=== PATIENT | female | born 1950 | race Caucasian/White ===

== ENCOUNTER 2022-02-22 08:18 | Inpatient (IN) | payer MEDICARE, SELFPAY ==
[2022-02-22] VITALS (31 sets, daily range): BP systolic 111–189; BP diastolic 64–97; PULSE 76–101; RESP 18–34; TEMP 35.7–36.4; O2SAT 87–99; BMI 47.0; BMI 46.5
--- NOTE | 2022-02-22 08:25 | EKG12_ITS ---
Test Reason : SOB Blood Pressure : / mmHG Vent. Rate : 085 BPM Atrial Rate : 085 BPM P-R Int : 144 ms QRS Dur : 162 ms QT Int : 448 ms P-R-T Axes : 013 -27 135 degrees QTc Int : 533 ms Sinus rhythm with frequent Premature ventricular complexes Left bundle branch block Abnormal ECG Confirmed by HILLARY MOLINA, RAJ ([id number]), subeditor NELIDA FOFANA ([id number]) on 02/24/2022 1:20:59 PM Referred By: AUDREY Confirmed By:RAJ THORNTON MD
--- NOTE | 2022-02-22 08:27 | EX.ED.DYSGE1 ---
HPI History of Present Illness Chief Complaint: Shortness of Breath Informant: patient Onset/Context/Timing Onset: Month(s) (1 month) Context: Gradual Onset Current Severity: Moderate Maximum Severity: Moderate Narrative Narrative: Patient presents with 1 month history of shortness of breath. Symptoms seem to worsen this morning so she came in for evaluation. She has not been seen by her primary care physician for this. She complains of intermittent chest pain but denies pain at present time. No known fever or chills. Occasional cough. She does complain of left leg pain and swelling. [facility] Medical History CHF (congestive heart failure) Coronary artery disease Diabetes mellitus type 2 in obese Hyperlipidemia Hypertension Home Medications glimepiride 4 mg PO BID 09/26/13 [History Last Taken 09/25/13 20:00] loratadine [Claritin] 5 mg PO DAILY 09/26/13 [History Last Taken 09/25/13 06:30] metformin [Glucophage] 1,000 mg PO BID 09/26/13 [History Last Taken 09/25/13 20:00] metoprolol tartrate 50 mg PO BID 09/26/13 [History Last Taken 09/25/13 20:00] Allergy/AdvReac Type Severity Reaction Status Date / Time No Known Allergies Allergy Verified 09/26/13 02:33 Social History Smoking Status: Former smoker ROS ROS ED Constitutional Constitutional ED: Denies chills or fever(s) Eyes Eyes: Denies change in vision ENT ENT ED: Denies sore throat Cardiovascular Cardiovascular: Reports chest pain Respiratory/Chest Respiratory/Chest: Reports cough and dyspnea Gastrointestinal Gastrointestinal: Denies abdominal pain, diarrhea, nausea or vomiting Genitourinary Genitourinary ED: Denies dysuria Musculoskeletal Musculoskeletal: Reports arthralgias and myalgias; Denies back pain Integumentary Denies rash Neurologic Neurologic: Denies headache(s) or weakness Allergic/Immunologic Allergic/Immunologic ED: Denies urticaria EXAM Physical Exam Const Vital Signs: 02/22/22 08:18 02/22/22 08:55 02/22/22 09:18 Temperature 97.5 F L Temperature Source Temporal Pulse Rate 93 81 Respiratory Rate 22 H 32 H Respiratory Effort Short of Breath Respiratory Pattern Normal Blood Pressure 162/68 H 151/66 H Blood Pressure Mean 99 94 Pulse Ox 87 99 Oxygen Delivery Method Room Air Nasal Cannula Nasal Cannula Oxygen Flow Rate (L/min) 2 02/22/22 10:30 02/22/22 10:45 02/22/22 10:59 Temperature Temperature Source Pulse Rate 101 H 96 Respiratory Rate 28 H 34 H Respiratory Effort Respiratory Pattern Tachypnea Blood Pressure 178/83 H Blood Pressure Mean 114 Pulse Ox 88 92 Oxygen Delivery Method Nasal Cannula Nasal Cannula Oxygen Flow Rate (L/min) 2 3 02/22/22 11:00 Temperature 97 F L Temperature Source Temporal Pulse Rate 95 Respiratory Rate 34 H Respiratory Effort Respiratory Pattern Blood Pressure 189/88 H Blood Pressure Mean 121 Pulse Ox 93 Oxygen Delivery Method Nasal Cannula Oxygen Flow Rate (L/min) 3 Positive obese Nutritional Appearance: obese HEENT Reports moist mucous membranes Eyes PERRL and EOMs intact bilaterally Neck supple Chest Wall inspection of chest normal and palpation of chest normal Resp normal respiratory effort and clear to auscultation bilaterally Cardio regular rate and regular rhythm GI non-tender Palpation: soft Extremity Extremity Narrative: 3+ edema bilateral lower extremities. Neuro oriented x3 Sensorium / Orientation: alert Psych mental status grossly normal MDM MDM MDM Narrative Medical decision making narrative: EKG, chest x-ray, lab work obtained. Lab Data Attestation: I reviewed the patient's lab results. Labs: Laboratory Results - last 24 hr 02/22/22 02/22/22 02/22/22 08:25 08:25 08:25 WBC 8.5 RBC 3.16 L Hgb 7.7 L Hct 27.0 L MCV 85.4 MCH 24.4 L MCHC 28.5 L RDW Std Deviation 46.9 H RDW Coeff of Bulmaro 15.2 H Plt Count 319 MPV 10.5 Immature Gran % (Auto) 0.800 Neut % (Auto) 75.1 H Lymph % (Auto) 13.2 L [place] % (Auto) 8.6 Eos % (Auto) 1.6 Baso % (Auto) 0.7 Absolute Neuts (auto) 6.4 Absolute Lymphs (auto) 1.12 Nucleated RBC % 0 D-Dimer Quant (PE/DVT) 0.83 H* Sodium 139 Potassium 4.7 Chloride 107 Carbon Dioxide 21.0 Anion Gap 11 BUN 30 H Creatinine 1.94 H Estim Creat Clear Calc 23.24 Est GFR (MDRD) Af Amer 32 L Est GFR (MDRD) Non-Af 27 L BUN/Creatinine Ratio 15.5 Glucose 371 H Calcium 9.0 Troponin I High Sens 14 B-Natriuretic Peptide 02/22/22 08:25 WBC RBC Hgb Hct MCV MCH MCHC RDW Std Deviation RDW Coeff of Bulmaro Plt Count MPV Immature Gran % (Auto) Neut % (Auto) Lymph % (Auto) [place] % (Auto) Eos % (Auto) Baso % (Auto) Absolute Neuts (auto) Absolute Lymphs (auto) Nucleated RBC % D-Dimer Quant (PE/DVT) Sodium Potassium Chloride Carbon Dioxide Anion Gap BUN Creatinine Estim Creat Clear Calc Est GFR (MDRD) Af Amer Est GFR (MDRD) Non-Af BUN/Creatinine Ratio Glucose Calcium Troponin I High Sens B-Natriuretic Peptide 595.4 H Radiography Chest X-Ray - ED: 1 View, Read by ED Physician and Chronic Changes Diagnostic Testing: Clinical Impression(s) from Imaging Studies Chest X-Ray 02/22/22 08:56 IMPRESSION: No active disease. Electronically Signed: Marcell Nixon MD at 9:43 EDT , EKG Initial EKG: Attestation: I personally reviewed and interpreted this EKG as follows: Interpretation: Sinus Rhythm (Sinus at 85 with left bundle branch block. Occasional PVCs noted. No acute ST change.) Treatment and Re-Evaluation Narrative: Patient's blood counts are reviewed and hemoglobin is low at 7.7. Last prior lab available for comparison from 2013. Chemistry studies are remarkable for creatinine of 1.94. Troponin normal at 14. D-dimer slightly elevated at 0.83. BNP is 595. Unfortunately patient's GFR is too low to get a CTA of the chest. Venous ultrasound of the leg is obtained with no evidence of DVT. Stool guaiac does return positive. Patient has been ordered a dose of Lasix and 2 units packed RBCs. I spoke with Dr. Friend as well as hospitalist for admission. Discharge Plan Triage Chief Complaint: Shortness of Breath ED Provider: Cindy Snyder Dx/Rx/DC Orders Clinical Impression: CHF exacerbation, Anemia, GI bleed Prescriptions: No Action metformin [Glucophage] 1,000 MG tablet 1,000 mg PO BID RF: 0 glimepiride 4 MG tablet 4 mg PO BID RF: 0 metoprolol tartrate 50 MG tablet 50 mg PO BID RF: 0 loratadine [Allergy Relief (loratadine)] 10 MG tablet 5 mg PO DAILY RF: 0 Primary Care Provider: Nabor James Referrals: Nabor James MD [Primary Care Provider] - Disposition Disposition: Acute Care Hospital [facility]
[2022-02-22 08:41] LABS: Absolute Lymphocyte Count 1.12 X10^3/uL (0.83-4.51); Absolute Neutrophil Count 6.4 X10^3/uL (2.0-7.7); Basophil# 0.06 X10^3/uL; Basophil% 0.7 % (0-1); Eosinophil# 0.14 X10^3/uL; Eosinophils% 1.6 % (0-5); Hemoglobin 7.7 g/dL (12.0-15.0); Lymphocyte # 1.12 X10^3/ul (0.83-4.51); Lymphocyte % 13.2 % (19-41); Mean Corp Hgb Conc 28.5 g/dL (32-36); Mean Corpuscular Hgb 24.4 pg (27.0-32.0); Mean Corpuscular Volume 85.4 fL (81-99); Mean Platelet Vol. 10.5 fl (6.2-12.0); Monocyte# 0.73 X10^3/uL; Monocyte% 8.6 % (0-10); NRBC Flagged by Analyzer 0 % (0-5); Neutrophil # 6.39 X10^3/uL (2.7-7.7); Neutrophil % 75.1 % (47-70); Platelet Count 319 K/mm3 (150-450); RBC Distribution Width CV 15.2 % (11.6-14.6); RBC Distribution Width SD 46.9 fl (35.1-43.9); Red Blood Count 3.16 M/mm3 (4.2-5.4); White Blood Count 8.5 K/mm3 (4.4-11.0)
--- NOTE | 2022-02-22 08:56 | RAD_ITS ---
STUDY: X-RAY CHEST REASON FOR EXAM: Female, 71 years old. sob TECHNIQUE: Single AP portable view of the chest. COMPARISON: 09/27/2013 FINDINGS: The lungs are clear and expanded. There is no demonstrated pleural abnormality. There is moderate cardiac enlargement. Normal mediastinum and devendra. Normal visualized pulmonary arteries. Normal visualized aortic arch and descending thoracic aorta. Normal visualized thoracic spine. Normal visualized ribs, clavicles, and shoulders. There is no demonstrated abnormality of the visualized soft tissue structures of the upper abdomen. RAD/Chest 1 View (Portable) IMPRESSION: No active disease. Electronically Signed: Marcell Nixon MD at 9:43 EDT ,
[2022-02-22 09:06] LABS: D-Dimer Quantitative (DVT/PE) 0.83 FEU/ug/m (0.27-0.49)
[2022-02-22 09:07] LABS: Anion Gap 11 (5-15); BUN 30 mg/dL (7-18); BUN/Creat Ratio 15.5 RATIO (10-20); Chloride 107 mmol/L (98-107); Creatinine, Serum 1.94 mg/dL (0.55-1.02); EST Glomerular Filtration Rate 27 mL/min (>60); Est Glom Filt Rate - Afr Amer 32 mL/min (>60); Estimated Creatinine Clearance 23.24 ml/min; Glucose 371 mg/dL (74-106); Potassium 4.7 mmol/L (3.5-5.1); Sodium Level 139 mmol/L (136-145); Troponin-I HS 14 pg/mL (3.0-54.0)
[2022-02-22 09:11] LABS: BNP,B-Type NATRIURETIC PEPTIDE 595.4 pg/mL (0-100)
--- NOTE | 2022-02-22 09:52 | VDLE_ITS ---
Reason For Study: Swelling Procedure LEFT This is a venous duplex using B-mode, color GSV is normal. flow and spectral Doppler. CFV is compressible, spontaneous, phasic, Exam performed portable in ED. competent, and demonstrates normal A preliminary report was called and/or faxed augmentation. to [facility]. FV is compressible, spontaneous, phasic, competent and demonstrates normal augmentation. FV distal visualized with color only due to ptbody habitus, appears patent. POP V is compressible, spontaneous, phasic, competent and demonstrates normal augmentation. T/P Trunk is compressible. PTV is compressible. LT PerV is compressible. VL/Venous Duplex US, Unilateral Interpretation Summary There is no evidence of left lower extremity deep vein thrombosis. Left great s aphenous vein appears patent and compressible segmentally. Patient body habitus prehibits compression of distal left femoral vein--viewed with color as noted. Ordering Physician: Cindy Snyder Referring Physician: MD Jacob Nabor Performed By: Melanie Rajput RVGuillermo
[2022-02-22] MEDS: Ipratropium/Albuterol Sulfate 3 ML AMPUL.NEB INHALATION ×3 (10:29→19:25)
[2022-02-22] MEDS: Furosemide 40 MG/4 ML Vial IV ×3 (10:47→22:06)
--- NOTE | 2022-02-22 11:10 | NURSING ---
HOSPITALIST PAGED DR HERNANDEZ PAGED
--- NOTE | 2022-02-22 11:13 | NURSING ---
DR VALLE FOR DR GUALLPA
--- NOTE | 2022-02-22 11:18 | HP.PCM.HOS_ITS ---
[facility] Date of Admission: 02/22/22 Date of Service: 02/22/22 Chief Complaint: SOB - 1 month HPI Narrative PRICILA WALDROP, is a 71 F who presents with above. Patient has past medical history of hypertension, type II DM, CAD status post stents(done in [facility] years ago). She has been progressively short of breath ongoing for 1 month. This is associated with orthopnea and PND and bilateral leg swelling. She has been sleeping in her recliner. She denied any chest pain or dizziness or palpitation. She denied any melena or hematochezia or hematemesis. She denied any NSAID use. Denied abdominal pain or nausea or vomiting. Her vitals in the ED showed blood pressure 162/68, pulse 93, respiratory rate 22, temperature 97.5, oxygen saturation 87% on room air. WBC count is 8.5, hemoglobin 7.7, no recent hemoglobin to compare. Last hemoglobin was 11.8 in 2013. Platelet is 319, elevated D-dimer at 0.83, CMP showed BUN of 30, creatinine 1.94, glucose 371. Previous creatinine was 1.4 in 2013. BNpeptide 595.4. Admitting chest x-ray showed moderate cardiac enlargement, no active disease. 2D echo in 2012 showed an EF of 50%, moderate pulmonary hypertension. [facility] Medical History (Updated 02/22/22 @ 11:[address] Marva Mckeon MD) CHF (congestive heart failure) Coronary artery disease Diabetes mellitus type 2 in obese Hyperlipidemia Hypertension Home Medications atorvastatin 40 mg PO QHS 02/22/22 [History Last Taken Unknown] carvedilol 12.5 mg PO BID 02/22/22 [History Last Taken Unknown] clopidogrel 75 mg PO DAILY 02/22/22 [History Last Taken Unknown] furosemide 40 mg PO DAILY 02/22/22 [History Last Taken Unknown] insulin detemir U-100 [Levemir FlexTouch U-100 Insuln] 80 unit SUBCUT BREAKFAST 02/22/22 [History Last Taken Unknown] insulin lispro 30 unit SUBCUT TIDCM 02/22/22 [History Last Taken Unknown] spironolactone 25 mg PO DAILY 02/22/22 [History Last Taken Unknown] valsartan 160 mg PO DAILY 02/22/22 [History Last Taken Unknown] Allergy/AdvReac Type Severity Reaction Status Date / Time No Known Allergies Allergy Verified 09/26/13 02:33 Family History (Updated 02/22/22 @ 11:[address] Marva Mckeon MD) Father Diabetes Heart disease CAD (coronary artery disease) Mother Heart disease Surgical History H/O vein stripping Status post angioplasty with stent Social History (Updated 02/22/22 @ 11:[address] Marva Mckeon MD) household members: family Smoking Status: Former smoker alcohol intake: never substance use type: does not use ROS ROS Narrative Constitutional: Reports:Denies: Anorexia, Chills, Fever, Night Sweats, Weight Change Eyes: Denies: Blurred vision, Cataracts, Conjunctivae Inflammation, Pain, Redness, Vision Change HEENT: Denies: Difficulty Hearing, Difficulty Swallowing, Head Aches, Hearing Changes, Sinus Congestion, Sinus Drainage Cardiovascular: See HPI Respiratory: Denies: Cough, Shortness of breath at rest, Sputum production Gastrointestinal: Denies: Abdominal Pain, Nausea, Vomiting Genitourinary: Denies: Dysuria Musculoskeletal: Denies: Joint Pain, Joint stiffness, Joint swelling, Joint Tenderness Skin: Denies: Rash, Wounds Neurological: Denies: Numbness, Tingling, Focal weakness Vital Signs Vital Signs Vital Signs: 02/22/22 08:18 02/22/22 08:55 02/22/22 09:18 Temperature 97.5 F L Temperature Source Temporal Pulse Rate 93 81 Respiratory Rate 22 H 32 H Respiratory Effort Short of Breath Respiratory Pattern Normal Blood Pressure 162/68 H 151/66 H Blood Pressure Mean 99 94 Pulse Ox 87 99 Oxygen Delivery Method Room Air Nasal Cannula Nasal Cannula Oxygen Flow Rate (L/min) 2 02/22/22 10:30 02/22/22 10:45 02/22/22 10:59 Temperature Temperature Source Pulse Rate 101 H 96 Respiratory Rate 28 H 34 H Respiratory Effort Respiratory Pattern Tachypnea Blood Pressure 178/83 H Blood Pressure Mean 114 Pulse Ox 88 92 Oxygen Delivery Method Nasal Cannula Nasal Cannula Oxygen Flow Rate (L/min) 2 3 02/22/22 11:00 Temperature 97 F L Temperature Source Temporal Pulse Rate 95 Respiratory Rate 34 H Respiratory Effort Respiratory Pattern Blood Pressure 189/88 H Blood Pressure Mean 121 Pulse Ox 93 Oxygen Delivery Method Nasal Cannula Oxygen Flow Rate (L/min) 3 Weight Weight: 130.1 kg Body Mass Index (BMI) 47.0 Physical Exam Narrative Physical exam: General: Alert, Oriented x3, Cooperative, in mild respiratory distress with tachypnea, conversational dyspnea, on 3 L of oxygen, morbidly obese HEENT: Atraumatic Oral: Moist Mucosa Neck: Supple Lungs: Diminished to auscultation, wheezes++ Cardiovascular: HS I+II, regular, no murmurs Abdomen: Bowel Sounds Present, Soft, Non Tender Extremities: Bilateral leg edema +3 Skin: No rashes, No breakdown Neurological: Grossly intact Psych/Mental Status: Appropriate Results Lab / Micro Data Result Diagrams: 02/22/22 08:25 02/22/22 08:25 Labs: Laboratory Results - last 24 hr 02/22/22 08:25: WBC 8.5, RBC 3.16 L, Hgb 7.7 L, Hct 27.0 L, MCV 85.4, MCH 24.4 L , MCHC 28.5 L, RDW Std Deviation 46.9 H, RDW Coeff of Bulmaro 15.2 H, Plt Count 319, MPV 10.5, Immature Gran % (Auto) 0.800, Neut % (Auto) 75.1 H, Lymph % (Auto) 13.2 L, [place] % (Auto) 8.6, Eos % (Auto) 1.6, Baso % (Auto) 0.7, Absolute Neuts (auto) 6.4, Absolute Lymphs (auto) 1.12, Nucleated RBC % 0 02/22/22 08:25: D-Dimer Quant (PE/DVT) 0.83 H* 02/22/22 08:25: Sodium 139, Potassium 4.7, Chloride 107, Carbon Dioxide 21.0, Anion Gap 11, BUN 30 H, Creatinine 1.94 H, Estim Creat Clear Calc 23.24, Est GFR (MDRD) Af Amer 32 L, Est GFR (MDRD) Non-Af 27 L, BUN/Creatinine Ratio 15.5, Glucose 371 H, Calcium 9.0, Troponin I High Sens 14 02/22/22 08:25: B-Natriuretic Peptide 595.4 H Micro: Microbiology 02/22/22 10:05 Stool Stool Occult Blood (TREVOR) - Final Occult Blood Positive 02/22/22 08:38 Nasal Secretion SARS-CoV-2 & FLU Antigen (Rapid) - Final Radiology Impression Chest X-Ray 02/22/22 08:56 IMPRESSION: No active disease. Electronically Signed: Marcell Nixon MD at 9:43 EDT , Assessment & Plan Assessment/Plan (1) CHF exacerbation: (2) Anemia: (3) GI bleed: (4) ELIDA (acute kidney injury): (5) Elevated d-dimer: PLAN: 1. Acute hypoxia secondary to acute exacerbation of heart failure with reduced EF Patient is currently on 3 L of oxygen and in florid heart failure Will continue on treatment for CHF, wean off oxygen, breathing treatments 2. Acute exacerbation of heart failure with reduced EF, EF 50% Last 2D echo in 2012 showed an EF of 20%, moderate pulm hypertension Lasix IV 40 mg Q8h, CHF protocol, TSH, trend cardiac enzymes Repeat 2D echo 3. Anemia, acute symptomatic, probably secondary to chronic blood loss from acute GI bleed Admitting hemoglobin of 7.7, Patient denied any melena or overt GI bleed. Stool for occult blood is positive We will check iron stores, patient being transfused from the ED Hold Plavix Repeat hemoglobin 4. Acute GI bleed likely secondary to gastritis Patient with severe symptomatic anemia, stool for occult blood positive GI consulted from the ED IV PPI twice daily 5. ELIDA on CKD, unknown previous recent EF, likely secondary to cardiorenal disease Cr on admission was 1.94, last creatinine was 1.4 Will monitor on Lasix therapy 6. Elevated D-dimer, likely an acute phase reactant from CHF versus possible PE Cannot do CTA on account of her renal function Bilateral Doppler ultrasound done in the ED was unremarkable We will hold for now on account of possible GI bleed 7. Type II DM, continue on insulin, check HbA1c, cover with insulin sliding scale blood glucose checks 8. Morbid obesity, BMI 47.0, complicates care and recovery, lifestyle modification recommended 9. DVT prophylaxis?SCDs 10. I discussed and explained in details the various types of CODE STATUS-full code, DNR CCA, DNR CC. Patient chose to be full code. His son Marcell Waldrop is his healthcare POA Time spent discussing CODE STATUS 18 minutes Charges/Coding Visit Charges Inpatient E&M: 06147 Init Hosp L3 Procedures Hospitalists Procedures: 74787 Advncd Care Plan 30 Min
[2022-02-22] MEDS: Albuterol 2.5 MG/3 ML VIAL.NEB. INHALATION ×2 (11:22)
--- NOTE | 2022-02-22 13:02 | ECHOCS_ITS ---
Reason For Study: CHF Procedure This was a 2D Doppler, Color Flow transthoracic echocardiogram. Contrast injection was performed. Exam performed portable in patient room. Left Ventricle Normal LV size. The estimated ejection fraction is 37 %. Moderate segmental systolic dysfunction (see wall motion). Stage 2 diastolic dysfunction. Mid-Inferior: Akinetic. Infero-Basal: Akinetic. Inferior [place] : Hypokinetic. Posterior-Basal: Hypokinetic. Mid-Posterior: Akinetic. Mid- inferoseptal : Hypokinetic. Basal inferoseptal: Hypokinetic. The rest of the wall segments are normal. Right Ventricle Normal RV size. Normal systolic function. Atria The left atrium is mildly enlarged. Normal right atrium. Mitral Valve Mild diffuse mitral valve thickening. Mild (1+) mitral valve insufficiency. Tricuspid Valve Normal tricuspid valve. Mild to moderate (1-2+) tricuspid valve insufficiency. Pulmonary artery systolic pressure is 55 mmHg. Aortic Valve Trisinus/trileaflet aortic valve. Pulmonic Valve The pulmonic valve is not well visualized. Great Vessels Normal aortic root. The pulmonary artery is normal size. and does not collapse. Pericardium/Pleural No pericardial effusion. Medication Diluted definity 2ml given slow IV push to enhance endocardial definition. MMode/2D Measurements & Calculations LVIDd: 5.6 cm IVSd: 1.1 cm Ao root diam: 3.0 cm LVIDs: 4.9 cm LVPWd: 1.0 cm RVDd: 4.0 cm FS: 12.5 % LAV(MOD-bp): 64.6 ml LVAd ap4: 36.9 cm2 SV(MOD-sp4): 51.1 ml LAV(MOD-bp) Indexed: 28.0 ml/m2 LVLd ap4: 8.2 cm LAV(MOD-sp2): 64.5 ml EDV(MOD-sp4): 134.6 ml LAV(MOD-sp4): 61.4 ml EDV(sp4-el): 140.8 ml LVAs ap4: 27.5 cm2 LVLs ap4: 7.5 cm ESV(MOD-sp4): 83.4 ml ESV(sp4-el): 85.9 ml EF(MOD-sp4): 38.0 % EF(sp4-el): 39.0 % SV(sp4-el): 54.8 ml LA A4 area: 20.4 cm2 LA dimension(2D): 4.2 cm RA A4 area: 15.1 cm2 Doppler Measurements & Calculations MV E max remberto: 82.3 cm/sec Lat Peak E' Remberto: 3.4 cm/sec Med Peak E' Remberto: 2.9 cm/sec MV A max remberto: 98.5 cm/sec E/E' lat: 24.1 E/E' med: 28.3 MV E/A: 0.84 Ao V2 max: 160.0 cm/sec LV V1 max: 105.3 cm/sec PA V2 max: 100.4 cm/sec Ao max P.2 mmHg LV V1 max P.4 mmHg Ao V2 mean: 118.0 cm/sec Ao mean P.0 mmHg Ao V2 VTI: 34.8 cm TR max remberto: 348.4 cm/sec TR max P.5 mmHg ECHO/Echo Complete W/ Contrast Interpretation Summary Normal LV size. The estimated ejection fraction is 37 %. Moderate segmental systolic dysfunction (see wall motion). Stage 2 diastolic dysfunction. Pulmonary artery systolic pressure is 55 mmHg. Contrast injection was performed. Compared to previous study, the left ventricu lar systolic function has worsened.. Ordering Physician: Marva Mckeon Referring Physician: Nabor James Performed By: Pushpa Marquis RDCS, RVT
[2022-02-22 13:10] LABS: Thyroid Stim Hormone (TSH) 5.15 uIU/mL (0.358-3.74)
[2022-02-22] MEDS: 0.9% Saline Lock 10 ML Syringe IV ×5 (13:27→22:02)
[2022-02-22] MEDS: Insulin Lispro 100 UNIT/ML INSULN.PEN 30 UNIT SC ×2 (13:57→16:57)
[2022-02-22] MEDS: Insulin Lispro 100 UNIT/ML INSULN.PEN SC ×3 (13:58→22:03)
[2022-02-22 14:00] LABS: Troponin-I HS 46 pg/mL (3.0-54.0)
[2022-02-22] MEDS: Ondansetron 4 MG/2 ML Vial IV (14:09)
[2022-02-22 14:10] LABS: Hemoglobin A1c 8.2 % (3.8-5.6)
[2022-02-22 14:11] LABS: Bedside Glucose 347 mg/dL (74-106)
[2022-02-22] MEDS: hydrALAZINE 20 MG/ML Vial 5 MG IV (14:27)
[2022-02-22 15:07] LABS: Troponin-I HS 64 pg/mL (3.0-54.0)
--- NOTE | 2022-02-22 16:03 | PCM.CONS.GEN ---
Assessment & Plan Assessment/Plan (1) Anemia: PLAN: New onset worsening anemia in the setting of aspirin therapy. Differential diagnosis does include upper GI bleed. She does have increased BUN/creatinine ratio that is possibly secondary to upper GI bleed, acute kidney injury in the setting of chronic kidney disease from dehydration. She also takes Plavix therapy which did increase risk of upper GI bleed. At this time, I recommend Protonix 40 mg IV twice daily. She is getting transfused 1 unit of packed red blood cells. N.p.o. after midnight for an upper endoscopy. She was explained alternatives, risk, benefits including not withstanding bleeding, infection, sepsis, perforation, need for urgent . Should have an ASA of 3. (2) ELIDA (acute kidney injury): PLAN: Likely secondary to dehydration, ATN , upper GI bleed or NSAID usage. HPI Consult Data Date of Consult: 02/22/22 HPI Narrative HPI Narrative: PRICILA WALDROP, is a 71 F who presents to the emergency room with worsening shortness of breath and bilateral leg swelling. She has a past medical history of morbid obesity, hypertension, diabetes, CAD status post PCI with stents. In the ED she was discovered to have a hemoglobin of 7.7, BUN 30, creatinine 1.94. I was called to see her due to new onset anemia. Her last known hemoglobin was 11.9. She denied any NSAID use. Denied abdominal pain or nausea or vomiting. Her vitals in the ED showed blood pressure 162/68, pulse 93, respiratory rate 22, temperature 97.5, oxygen saturation 87% on room air. WBC count is 8.5, hemoglobin 7.7, no recent hemoglobin to compare. Last hemoglobin was 11.8 in 2013. Platelet is 319, elevated D-dimer at 0.83, CMP also displayed a glucose 371. Previous creatinine was 1.4 in 2013. BNpeptide 595.4. Admitting chest x-ray showed moderate cardiac enlargement, no active disease. 2D echo in 2012 showed an EF of 50%, moderate pulmonary hypertension. [facility] Medical History (Updated 02/22/22 @ 11:[address] Marva Mckeon MD) CHF (congestive heart failure) Coronary artery disease Diabetes mellitus type 2 in obese Hyperlipidemia Hypertension Home Medications atorvastatin 40 mg PO QHS 02/22/22 [History Last Taken Unknown] carvedilol 12.5 mg PO BID 02/22/22 [History Last Taken Unknown] clopidogrel 75 mg PO DAILY 02/22/22 [History Last Taken Unknown] furosemide 40 mg PO DAILY 02/22/22 [History Last Taken Unknown] insulin detemir U-100 [Levemir FlexTouch U-100 Insuln] 80 unit SUBCUT BREAKFAST 02/22/22 [History Last Taken Unknown] insulin lispro 30 unit SUBCUT TIDCM 02/22/22 [History Last Taken Unknown] spironolactone 25 mg PO DAILY 02/22/22 [History Last Taken Unknown] valsartan 160 mg PO DAILY 02/22/22 [History Last Taken Unknown] Allergy/AdvReac Type Severity Reaction Status Date / Time No Known Allergies Allergy Verified 09/26/13 02:33 Family History (Updated 02/22/22 @ 11:[address] Marva Mckeon MD) Father Diabetes Heart disease CAD (coronary artery disease) Mother Heart disease Surgical History H/O vein stripping Status post angioplasty with stent Social History (Updated 02/22/22 @ 11:[address] Marva Mckeon MD) household members: family Smoking Status: Former smoker alcohol intake: never substance use type: does not use ROS Review of Systems ROS Unobtainable: other Constitutional Constitutional: Denies fatigue, fever(s), poor appetite, weight gain or weight loss ENT HEENT: Denies mouth lesions Cardiovascular Cardiovascular: Denies abdominal bloating, abdominal edema or abdominal pain Respiratory/Chest Respiratory/Chest: Reports dyspnea Gastrointestinal Gastrointestinal: Denies belching, bloating, change in bowel habits, change in stool character, chewing difficulty, coffee ground emesis, constipation, cramping, diarrhea, dyspepsia, dysphagia, early satiety, excessive flatus, fecal incontinence, heartburn, hematemesis, hematochezia, hemorrhoids, loose stools, melena, nausea, odynophagia, rectal bleeding, tenesmus, vomiting or weight changes Genitourinary Genitourinary: Denies abdominal discomfort, burning urination or itching Musculoskeletal Musculoskeletal: Reports as per HPI; Denies muscle weakness or myalgias Integumentary Integumentary: Denies jaundice Neurologic Neurologic: Denies lack of coordination or weakness Psychiatric Psychiatric: Denies confusion, depression, memory loss, mood swings, paranoia or suicidal ideation Endocrine Endocrinology: Denies systems reviewed and no addt'l complaints, except as documented Hematologic/Lymphatic Hematologic/Lymphatic: Reports easy bruising Allergic/Immunologic Allergic/Immunologic: Denies systems reviewed and no addt'l complaints, except as documented Physical Exam Const alert General Appearance: cooperative Orientation / Consciousness: oriented to person HEENT hearing grossly normal bilaterally Head and Scalp: normal to inspection Face and Sinus: face symmetric Nose: external nose normal Mouth: oral and palatal mucosa normal Eyes conjunctivae normal General Eye: normal appearance of both eyes Neck full ROM General: normal visual inspection Lymph Lymphatic: no lymphadenopathy noted Chest inspection of chest normal and palpation of chest normal Chest: symmetrical chest wall rise Resp normal respiratory effort Effort and Inspection: able to speak in complete sentences Cardio regular rate GI non-distended Percussion: normal to percussion Rectal Exam: deferred Neuro Speech: speech normal Gait (Neuro): normal gait Lab / Micro Data Result Diagrams: 02/22/22 08:25 02/22/22 08:25 Labs: Laboratory Results - last 24 hr 02/22/22 08:24: TSH 5.15 H 02/22/22 08:25: WBC 8.5, RBC 3.16 L, Hgb 7.7 L, Hct 27.0 L, MCV 85.4, MCH 24.4 L, MCHC 28.5 L, RDW Std Deviation 46.9 H, RDW Coeff of Bulmaro 15.2 H, Plt Count 319, MPV 10.5, Immature Gran % (Auto) 0.800, Neut % (Auto) 75.1 H, Lymph % (Auto) 13.2 L, [place] % (Auto) 8.6, Eos % (Auto) 1.6, Baso % (Auto) 0.7, Absolute Neuts (auto) 6.4, Absolute Lymphs (auto) 1.12, Nucleated RBC % 0 02/22/22 08:25: D-Dimer Quant (PE/DVT) 0.83 H* 02/22/22 08:25: Sodium 139, Potassium 4.7, Chloride 107, Carbon Dioxide 21.0, Anion Gap 11, BUN 30 H, Creatinine 1.94 H, Estim Creat Clear Calc 23.24, Est GFR (MDRD) Af Amer 32 L, Est GFR (MDRD) Non-Af 27 L, BUN/Creatinine Ratio 15.5, Glucose 371 H, Calcium 9.0, Troponin I High Sens 14 02/22/22 08:25: B-Natriuretic Peptide 595.4 H 02/22/22 11:30: Blood Type A POSITIVE, Antibody Screen NEGATIVE, Crossmatch See Detail 02/22/22 13:14: Hemoglobin A1c 8.2 H 02/22/22 13:16: Troponin I High Sens 46 02/22/22 13:54: POC Glucose 347 H 02/22/22 14:30: Troponin I High Sens 64 H Micro: Microbiology 02/22/22 10:05 Stool Stool Occult Blood (TREVOR) - Final Occult Blood Positive 02/22/22 08:38 Nasal Secretion SARS-CoV-2 & FLU Antigen (Rapid) - Final Radiology Impression Chest X-Ray 02/22/22 08:56 IMPRESSION: No active disease. Electronically Signed: Marcell Nixon MD at 9:43 EDT , Charges/Coding Visit Charges Inpatient E&M: 15865 Init Hosp L2
[2022-02-22] MEDS: Spironolactone 25 MG Tablet PO (17:08)
[2022-02-22] MEDS: Losartan Potassium 50 MG Tablet PO (17:08)
[2022-02-22 17:11] LABS: Bedside Glucose 312 mg/dL (74-106)
[2022-02-22] MEDS: Glucerna Shake 120 ML LIQUID PO (22:02)
[2022-02-22] MEDS: Carvedilol 12.5 MG Tablet PO (22:02)
[2022-02-22] MEDS: Atorvastatin Calcium 40 MG Tablet PO (22:10)
[2022-02-23] VITALS (20 sets, daily range): BP systolic 91–162; BP diastolic 47–78; PULSE 60–116; RESP 12–24; TEMP 36.2–36.9; O2SAT 93–100; BMI 46.2
[2022-02-23 01:20] LABS: Bedside Glucose 211 mg/dL (74-106)
[2022-02-23 05:21] LABS: Absolute Lymphocyte Count 0.86 X10^3/uL (0.83-4.51); Basophil# 0.05 X10^3/uL; Basophil% 0.5 % (0-1); Eosinophil# 0.08 X10^3/uL; Eosinophils% 0.7 % (0-5); Hematocrit 30.6 % (37-47); Hemoglobin 9.2 g/dL (12.0-15.0); Lymphocyte # 0.86 X10^3/ul (0.83-4.51); Mean Corp Hgb Conc 30.1 g/dL (32-36); Mean Corpuscular Hgb 25.4 pg (27.0-32.0); Mean Corpuscular Volume 84.5 fL (81-99); Mean Platelet Vol. 10.3 fl (6.2-12.0); Monocyte# 0.73 X10^3/uL; Monocyte% 6.8 % (0-10); NRBC Flagged by Analyzer 0 % (0-5); Neutrophil # 8.95 X10^3/uL (2.7-7.7); Neutrophil % 83.3 % (47-70); Platelet Count 259 K/mm3 (150-450); RBC Distribution Width CV 14.7 % (11.6-14.6); RBC Distribution Width SD 45.7 fl (35.1-43.9); Red Blood Count 3.62 M/mm3 (4.2-5.4); White Blood Count 10.8 K/mm3 (4.4-11.0)
[2022-02-23] MEDS: Furosemide 40 MG/4 ML Vial IV ×2 (05:40→17:31)
[2022-02-23 05:41] LABS: ALB/GLOB Ratio 0.9 RATIO (0.9-2.4); AST(SGOT) 15 U/L (15-37); Alanine Aminotransfer ALT/SGPT 17 U/L (13-56); Albumin, Serum 3.1 g/dL (3.2-5.0); Alkaline Phosphatase 76 U/L (45-117); Anion Gap 8 (5-15); BUN 35 mg/dL (7-18); Calcium,Total 8.6 mg/dL (8.5-10.1); Chloride 106 mmol/L (98-107); Creatinine, Serum 1.84 mg/dL (0.55-1.02); EST Glomerular Filtration Rate 29 mL/min (>60); Est Glom Filt Rate - Afr Amer 35 mL/min (>60); Globulin 3.5 g/dL (2.2-4.2); Glucose 179 mg/dL (74-106); Magnesium 1.8 mg/dL (1.6-2.6); Potassium 4.5 mmol/L (3.5-5.1); Protein, Total 6.6 g/dL (6.4-8.2); Sodium Level 137 mmol/L (136-145)
[2022-02-23 05:43] LABS: International Normalized Ratio 1.3; Prothrombin Time (Protime)PT. 16.1 SECONDS (11.7-14.9)
[2022-02-23] MEDS: 0.9% Saline Lock 10 ML Syringe IV (05:43)
--- NOTE | 2022-02-23 05:55 | EKG12_ITS ---
Test Reason : AM EKG Blood Pressure : / mmHG Vent. Rate : 071 BPM Atrial Rate : 071 BPM P-R Int : 164 ms QRS Dur : 164 ms QT Int : 480 ms P-R-T Axes : 023 -25 182 degrees QTc Int : 521 ms Normal sinus rhythm Left bundle branch block Abnormal ECG When compared with ECG of 22-FEB-2022 08:32, MANUAL COMPARISON REQUIRED, DATA IS UNCONFIRMED Confirmed by HILLARY MOLINA, RAJ ([id number]), brands editor ASTON AQUINO ([id number]) on 02/25/2022 12:22:04 PM Referred By: Confirmed By:RAJ THORNTON MD
[2022-02-23] MEDS: Ipratropium/Albuterol Sulfate 3 ML AMPUL.NEB INHALATION ×3 (07:05→19:26)
--- NOTE | 2022-02-23 08:01 | PN.HOSP_ITS ---
Objective Data Objective Data Vital Signs: Vital Signs Temp Pulse Resp BP Pulse Ox 97.1 F L 68 18 149/64 H 93 02/23/22 05:44 02/23/22 07:31 02/23/22 07:05 02/23/22 05:44 02/23/22 07:05 Oxygen Flow Rate (L/min) 1.5 Oxygen Delivery Method Nasal Cannula Weight: 279 lb 12.266 oz Body Mass Index (BMI) 46.2 Intake & Output: Intake and Output for Last 24 Hours 02/21/22 02/22/22 02/23/22 23:59 23:59 23:59 Intake Total 980 / 980 Output Total 800 / 1150 700 / 700 Balance 180 / -170 -700 / -700 Lab / Micro Data Result Diagrams: 02/23/22 05:01 02/23/22 05:01 Labs: Laboratory Results - last 24 hr 02/22/22 08:24: TSH 5.15 H 02/22/22 08:25: WBC 8.5, RBC 3.16 L, Hgb 7.7 L, Hct 27.0 L, MCV 85.4, MCH 24.4 L , MCHC 28.5 L, RDW Std Deviation 46.9 H, RDW Coeff of Bulmaro 15.2 H, Plt Count 319, MPV 10.5, Immature Gran % (Auto) 0.800, Neut % (Auto) 75.1 H, Lymph % (Auto) 13.2 L, [place] % (Auto) 8.6, Eos % (Auto) 1.6, Baso % (Auto) 0.7, Absolute Neuts (auto) 6.4, Absolute Lymphs (auto) 1.12, Nucleated RBC % 0 02/22/22 08:25: D-Dimer Quant (PE/DVT) 0.83 H* 02/22/22 08:25: Sodium 139, Potassium 4.7, Chloride 107, Carbon Dioxide 21.0, Anion Gap 11, BUN 30 H, Creatinine 1.94 H, Estim Creat Clear Calc 23.24, Est GFR (MDRD) Af Amer 32 L, Est GFR (MDRD) Non-Af 27 L, BUN/Creatinine Ratio 15.5, Glucose 371 H, Calcium 9.0, Troponin I High Sens 14 02/22/22 08:25: B-Natriuretic Peptide 595.4 H 02/22/22 11:30: Blood Type A POSITIVE, Antibody Screen NEGATIVE, Crossmatch See Detail 02/22/22 13:14: Hemoglobin A1c 8.2 H 02/22/22 13:16: Troponin I High Sens 46 02/22/22 13:54: POC Glucose 347 H 02/22/22 14:30: Troponin I High Sens 64 H 02/22/22 16:53: POC Glucose 312 H 02/22/22 22:01: POC Glucose 211 H 02/23/22 05:01: WBC 10.8, RBC 3.62 L, Hgb 9.2 L, Hct 30.6 L, MCV 84.5, MCH 25.4 L, MCHC 30.1 L D, RDW Std Deviation 45.7 H, RDW Coeff of Bulmaro 14.7 H, Plt Count 259, MPV 10.3, Immature Gran % (Auto) 0.700, Neut % (Auto) 83.3 H, Lymph % (Auto) 8.0 L, [place] % (Auto) 6.8, Eos % (Auto) 0.7, Baso % (Auto) 0.5, Absolute Neuts (auto) 9.0 H, Absolute Lymphs (auto) 0.86, Nucleated RBC % 0 02/23/22 05:01: Sodium 137, Potassium 4.5, Chloride 106, Carbon Dioxide 23.0, Anion Gap 8, BUN 35 H, Creatinine 1.84 H, Estim Creat Clear Calc 24.50, Est GFR (MDRD) Af Amer 35 L, Est GFR (MDRD) Non-Af 29 L, BUN/Creatinine Ratio 19.0, Glucose 179 H, Calcium 8.6, Magnesium 1.8, Total Bilirubin 1.20 H, AST 15, ALT 17, Alkaline Phosphatase 76, Total Protein 6.6, Albumin 3.1 L, Globulin 3.5, Albumin/Globulin Ratio 0.9 02/23/22 05:01: PT 16.1 H, INR 1.3 Micro: Microbiology 02/22/22 10:05 Stool Stool Occult Blood (TREVOR) - Final Occult Blood Positive 02/22/22 08:38 Nasal Secretion SARS-CoV-2 & FLU Antigen (Rapid) - Final Radiography Diagnostic Testing: Radiology Impression Chest X-Ray 02/22/22 08:56 IMPRESSION: No active disease. Electronically Signed: Marcell Nixon MD at 9:43 EDT , Physical Exam Narrative Seen and examined. Patient is not short of breath. Denies chest pain or pressure. No abdominal pain. Patient has bilateral lower extremity edema for 3 to 4 months and progressive worsening of shortness of breath for symptoms along with leg swelling. Patient has not walked out of bed yet General: Alert, Oriented x3, Cooperative, morbid obesity BMI 46.6 kg/m? HEENT: Atraumatic, PERRLA, EOMI, Normocephalic Oral: Deep oropharyngeal structures not clearly visualized. No Gingival or Mu cosal Lesions/ Ulcerations Neck: Supple, No JVD, Negative Carotid Bruits Lungs: Air entry diminished in bilateral lung bases. Bilateral wheezing. Dyspnea at rest Cardiovascular: Regular rate, Regular Rhythm, Normal S1, Normal S2, No murmurs Abdomen: Bowel Sounds Present, Soft, Non Tender, Non-Distended : No renal angle tenderness. No suprapubic tenderness. Extremities: Bilateral LE edema up to thigh level. Capillary Refill Less than 3 Seconds Skin: No rashes, No breakdown Musculoskeletal: No Tenderness to Palpation of Joints or Extremities Neurological: DTR 2+/4 and Symmetrical, Neuro grossly intact. Muscle strength 4/5 at major joints Psych/Mental Status: Flat affect. Assessment & Plan Assessment/Plan (1) CHF exacerbation: (2) Anemia: (3) GI bleed: (4) ELIDA (acute kidney injury): (5) Elevated d-dimer: PLAN: 1. Acute hypoxia secondary to acute exacerbation of chronic systolic and diastolic heart failure: Patient had repeat echo which showed EF 37%, RVSP 55 mmHg with a stage II diastolic dysfunction consistent with both systolic and diastolic heart failure. Patient oxygen is titrated down to 2 L. Patient is morbidly obese BMI 46.6 kg per metered square with mild wheezing I think she might have EDGARDO/restrictive lung disease. Patient was convinced for CPAP. Heart failure core measures including intake and output, fluid restriction less than 1500 mL, daily weight monitoring, kidney and electrolytes monitoring. Last echo in 2009 shows EF 50% with moderate pulmonary hypertension. TSH 5.15, upper limit of normal. Free T4 tomorrow. BNP elevated. Chest x-ray mutilative reviewed does not show acute abnormality. 2. Anemia, acute symptomatic, probably secondary to chronic blood loss from acute GI bleed: Patient admitted hemoglobin 7.7, increased to 9.2. Had 2 units of PRBC transfusion. 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 Patient had coagulation with heater probe. Single 5 mm angiodysplastic lesion without bleeding in duodenal bulb. Hold Plavix. Chest x-ray is underventilated. No acute abnormality. PPI twice daily. 3. ELIDA on CKD with unknown baseline probably CKD stage IIIb. Patient last creatinine was in September 2013 reported 1.4. Currently 1.84. Monitor kidney function. 4.. Elevated D-dimer, likely an acute phase reactant from CHF versus possible PE Bilateral Doppler ultrasound done in the ED was unremarkable 5. Type II DM, continue on insulin, A1c 8.2%. 6. Morbid obesity, BMI 47.0, complicates care and recovery, lifestyle modification recommended 7. DVT prophylaxis?SCDs 8. Full code I talked to the patient's and explained about the patient's comorbidities, diagnosis and management plan Clinical Impression(s) from Imaging Studies Chest X-Ray 02/22/22 08:56 IMPRESSION: No active disease. Echocardiogram 02/22/22 13:02 Interpretation Summary Normal LV size. The estimated ejection fraction is 37 %. Moderate segmental systolic dysfunction (see wall motion). Stage 2 diastolic dysfunction. Pulmonary artery systolic pressure is 55 mmHg. Contrast injection was performed. Compared to previous study, the left ventric ular systolic function has worsened.. Charges/Coding Visit Charges Inpatient E&M: 22628 Subs Hosp L2
[2022-02-23] MEDS: Insulin Lispro 100 UNIT/ML INSULN.PEN SC (08:15)
[2022-02-23] MEDS: Insulin Lispro 100 UNIT/ML INSULN.PEN 30 UNIT SC ×3 (08:16→17:31)
[2022-02-23] MEDS: Carvedilol 12.5 MG Tablet PO ×2 (08:17→20:19)
[2022-02-23] MEDS: Losartan Potassium 50 MG Tablet PO (08:18)
[2022-02-23] MEDS: Spironolactone 25 MG Tablet PO (08:18)
[2022-02-23] MEDS: Lactated Ringers 1,000 ML 15 ML IV (09:35)
--- NOTE | 2022-02-23 10:03 | PCM.PROGNOTE ---
Subjective Subjective Mrs. Myers underwent an upper endoscopy. She was discovered to have 3 AVMs that were seen with bleeding stigmata. 2 of which were in her stomach and one was in the proximal portion of her duodenum. They were treated with Endo cautery therapy. Objective Data Objective Data Vital Signs: Vital Signs Temp Pulse Resp BP Pulse Ox 97.8 F 68 18 155/78 H 98 02/23/22 09:30 02/23/22 09:30 02/23/22 09:30 02/23/22 09:30 02/23/22 09:30 Oxygen Flow Rate (L/min) 2 Oxygen Delivery Method Nasal Cannula Weight: 279 lb 12.266 oz Body Mass Index (BMI) 46.2 Intake & Output: Intake and Output for Last 24 Hours 02/21/22 02/22/22 02/23/22 23:59 23:59 23:59 Intake Total 980 / 980 110 / 110 Output Total 800 / 1150 700 / 700 Balance 180 / -170 -590 / -590 Lab / Micro Data Result Diagrams: 02/23/22 05:01 02/23/22 05:01 Labs: Laboratory Results - last 24 hr 02/22/22 08:24: TSH 5.15 H 02/22/22 11:30: Blood Type A POSITIVE, Antibody Screen NEGATIVE, Crossmatch See Detail 02/22/22 13:14: Hemoglobin A1c 8.2 H 02/22/22 13:16: Troponin I High Sens 46 02/22/22 13:54: POC Glucose 347 H 02/22/22 14:30: Troponin I High Sens 64 H 02/22/22 16:53: POC Glucose 312 H 02/22/22 22:01: POC Glucose 211 H 02/23/22 05:01: WBC 10.8, RBC 3.62 L, Hgb 9.2 L, Hct 30.6 L, MCV 84.5, MCH 25.4 L, MCHC 30.1 L D, RDW Std Deviation 45.7 H, RDW Coeff of Bulmaro 14.7 H, Plt Count 259, MPV 10.3, Immature Gran % (Auto) 0.700, Neut % (Auto) 83.3 H, Lymph % (Auto) 8.0 L, [place] % (Auto) 6.8, Eos % (Auto) 0.7, Baso % (Auto) 0.5, Absolute Neuts (auto) 9.0 H, Absolute Lymphs (auto) 0.86, Nucleated RBC % 0 02/23/22 05:01: Sodium 137, Potassium 4.5, Chloride 106, Carbon Dioxide 23.0, Anion Gap 8, BUN 35 H, Creatinine 1.84 H, Estim Creat Clear Calc 24.50, Est GFR (MDRD) Af Amer 35 L, Est GFR (MDRD) Non-Af 29 L, BUN/Creatinine Ratio 19.0, Glucose 179 H, Calcium 8.6, Magnesium 1.8, Total Bilirubin 1.20 H, AST 15, ALT 17, Alkaline Phosphatase 76, Total Protein 6.6, Albumin 3.1 L, Globulin 3.5, Albumin/Globulin Ratio 0.9 02/23/22 05:01: PT 16.1 H, INR 1.3 Micro: Microbiology 02/22/22 10:05 Stool Stool Occult Blood (TREVOR) - Final Occult Blood Positive 02/22/22 08:38 Nasal Secretion SARS-CoV-2 & FLU Antigen (Rapid) - Final Physical Exam Const alert General Appearance: cooperative Orientation / Consciousness: oriented to person HEENT hearing grossly normal bilaterally Head and Scalp: normal to inspection Face and Sinus: face symmetric Nose: external nose normal Mouth: oral and palatal mucosa normal Eyes conjunctivae normal General Eye: normal appearance of both eyes Neck full ROM General: normal visual inspection Lymph Lymphatic: no lymphadenopathy noted Chest inspection of chest normal and palpation of chest normal Chest: symmetrical chest wall rise Resp normal respiratory effort Effort and Inspection: able to speak in complete sentences Cardio regular rate GI non-distended Percussion: normal to percussion Rectal Exam: deferred Neuro Speech: speech normal Gait (Neuro): normal gait Assessment & Plan Assessment/Plan (1) GI bleed: PLAN: Upper GI bleed secondary to 3 AVMs that were treated endoscopically. Recommend to follow H&H. If her hemoglobin continues to drop she will need a colonoscopy and possibly capsule endoscopy. (2) Anemia: PLAN: Anemia believed to be secondary to upper GI bleed. In the setting of chronic renal failure and iron deficiency. Charges/Coding Visit Charges Inpatient E&M: 85360 Subs Hosp L2
--- NOTE | 2022-02-23 10:09 | OP.EGD_ITS ---
Patient Name: Rosa Myers Procedure Date: 02/23/2022 9:44 AM Date of : 1950 Age: 71 Procedure: Upper GI endoscopy Indications: Iron deficiency anemia Providers: Tyson Power DO Medicines: Monitored Anesthesia Care Patient Profile: This is a 71 year old female. Refer to note in patient chart for documentation of history and physical. Patient has symptoms. Complications: No immediate complications. Procedure: Pre-Anesthesia Assessment: - Prior to the procedure, a History and Physical was performed, and patient medications and allergies were reviewed. The patient is competent. The risks and benefits of the procedure and the sedation options and risks were discussed with the patient. All questions were answered and informed consent was obtained. Patient identification and proposed procedure were verified by the physician in the pre-procedure area. Mental Status Examination: alert and oriented. Airway Examination: normal oropharyngeal airway and neck mobility. Respiratory Examination: clear to auscultation. CV Examination: normal. Prophylactic Antibiotics: The patient does not require prophylactic antibiotics. Prior Anticoagulants: The patient has taken no previous anticoagulant or antiplatelet agents. ASA Grade Assessment: II - A patient with mild systemic disease. After reviewing the risks and benefits, the patient was deemed in satisfactory condition to undergo the procedure. The anesthesia plan was to use moderate sedation / analgesia (conscious sedation). Immediately prior to administration of medications, the patient was re-assessed for adequacy to receive sedatives. The heart rate, respiratory rate, oxygen saturations, blood pressure, adequacy of pulmonary ventilation, and response to care were monitored throughout the procedure. The physical status of the patient was re-assessed after the procedure. After obtaining informed consent, the endoscope was passed under direct vision. Throughout the procedure, the patient's blood pressure, pulse, and oxygen saturations were monitored continuously. The gastroscope was introduced through the mouth, and advanced to the second part of duodenum. The upper GI endoscopy was accomplished without difficulty. The patient tolerated the procedure well. Scope In: 9:56:10 AM Scope Out: 10:01:36 AM Total Procedure Duration Time 0 hours 5 minutes 26 seconds Findings: The upper third of the esophagus, middle third of the esophagus and lower third of the esophagus were normal. Two 5 mm bleeding angioectasias were found in the cardia and in the gastric body. Coagulation for hemostasis using heater probe was successful. Estimated blood loss was minimal. A single 5 mm angiodysplastic lesion without bleeding was found in the duodenal bulb. Coagulation for bleeding prevention using heater probe was successful. Estimated blood loss was minimal. Impression: - Normal upper third of esophagus, middle third of esophagus and lower third of esophagus. 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 Treated with a heater probe. - A single non-bleeding angiodysplastic lesion in the duodenum. Treated with a heater probe. - No specimens collected. Recommendation: - [facility]. - Full liquid diet. - Continue present medications. Procedure Code(s): --- Professional --- 35774, Esophagogastroduodenoscopy, flexible, transoral; with control of bleeding, any method CPT copyright 2017 [employer]. All rights reserved. The codes documented in this report are preliminary and upon medical biller/coder review may be revised to meet current compliance requirements. Tyson Power DO 02/23/2022 10:08:53 AM This report has been signed electronically. Number of Addenda: 1 Note Initiated On: 02/23/2022 9:44 AM Addendum Number: 1 Addendum Date: 06/26/2022 6:08:23 AM MAC was used as sedation for this procedure. Tyson Power DO 06/26/2022 6:08:27 AM This report has been signed electronically.
--- NOTE | 2022-02-23 10:10 | OP.CCLET_ITS ---
06/26/2022 Nabor James [address] [place] [address] Re : Upper GI endoscopy procedure for Rosa Myers Dear Dr. James This procedure was performed on Wednesday, February 23, 2022. My impressions and recommendations are as follows: Impressions : - Normal upper third of esophagus, middle third of esophagus and lower third of esophagus. 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 Treated with a heater probe. - A single non-bleeding angiodysplastic lesion in the duodenum. Treated with a heater probe. - No specimens collected. Recommendations : - [facility]. - Full liquid diet. - Continue present medications. My findings are described in the full procedure note, which is enclosed. If I can be of further assistance, please feel free to contact me at . Sincerely, Tyson Power, 02/23/2022 10:08:53 AM This report has been signed electronically.
[2022-02-23 11:16] LABS: Bedside Glucose 133 mg/dL (74-106)
[2022-02-23] MEDS: Glucerna Shake 120 ML LIQUID PO ×2 (13:52→20:33)
[2022-02-23 15:41] LABS: Bedside Glucose 122 mg/dL (74-106)
[2022-02-23] MEDS: Pantoprazole Sodium 40 MG Tablet PO (20:20)
[2022-02-23] MEDS: Atorvastatin Calcium 40 MG Tablet PO (20:20)
[2022-02-23 22:16] LABS: Bedside Glucose 125 mg/dL (74-106)
[2022-02-24] VITALS (13 sets, daily range): BP systolic 103–122; BP diastolic 45–72; PULSE 62–70; RESP 14–22; TEMP 36.5–36.8; O2SAT 91–99
[2022-02-24 04:53] LABS: Absolute Lymphocyte Count 0.99 X10^3/uL (0.83-4.51); Absolute Neutrophil Count 6.7 X10^3/uL (2.0-7.7); Basophil# 0.05 X10^3/uL; Basophil% 0.6 % (0-1); Eosinophil# 0.15 X10^3/uL; Eosinophils% 1.7 % (0-5); Hematocrit 27.6 % (37-47); Hemoglobin 8.3 g/dL (12.0-15.0); Lymphocyte # 0.99 X10^3/ul (0.83-4.51); Lymphocyte % 11.3 % (19-41); Mean Corp Hgb Conc 30.1 g/dL (32-36); Mean Corpuscular Hgb 25.5 pg (27.0-32.0); Mean Corpuscular Volume 84.9 fL (81-99); Mean Platelet Vol. 10.1 fl (6.2-12.0); Monocyte% 9.2 % (0-10); NRBC Flagged by Analyzer 0 % (0-5); Neutrophil # 6.69 X10^3/uL (2.7-7.7); Neutrophil % 76.5 % (47-70); Platelet Count 211 K/mm3 (150-450); RBC Distribution Width CV 15.6 % (11.6-14.6); RBC Distribution Width SD 47.9 fl (35.1-43.9); Red Blood Count 3.25 M/mm3 (4.2-5.4); White Blood Count 8.7 K/mm3 (4.4-11.0)
[2022-02-24 05:10] LABS: ALB/GLOB Ratio 0.8 RATIO (0.9-2.4); AST(SGOT) 11 U/L (15-37); Alanine Aminotransfer ALT/SGPT 15 U/L (13-56); Albumin, Serum 2.8 g/dL (3.2-5.0); Alkaline Phosphatase 66 U/L (45-117); Anion Gap 7 (5-15); BUN 44 mg/dL (7-18); BUN/Creat Ratio 17.6 RATIO (10-20); Calcium,Total 8.6 mg/dL (8.5-10.1); Chloride 105 mmol/L (98-107); EST Glomerular Filtration Rate 20 mL/min (>60); Est Glom Filt Rate - Afr Amer 24 mL/min (>60); Estimated Creatinine Clearance 18.03 ml/min; Globulin 3.3 g/dL (2.2-4.2); Glucose 142 mg/dL (74-106); Potassium 4.6 mmol/L (3.5-5.1); Protein, Total 6.1 g/dL (6.4-8.2); Sodium Level 138 mmol/L (136-145)
[2022-02-24] MEDS: Glucerna Shake 120 ML LIQUID PO ×2 (05:51→13:29)
--- NOTE | 2022-02-24 05:51 | CPS ---
Attempted bipap 10/5 with a medium face mask. Pt unable to tolerate. Pt stated she was uncomfortable , could not sleep and her mouth was super dry. RN notified.
[2022-02-24] MEDS: Ipratropium/Albuterol Sulfate 3 ML AMPUL.NEB INHALATION ×3 (07:44→19:20)
[2022-02-24 08:16] LABS: Bedside Glucose 219 mg/dL (74-106)
[2022-02-24] MEDS: Insulin Glargine-YFGN 100 UNIT/ML Pen 80 UNIT SC (09:05)
[2022-02-24] MEDS: Insulin Lispro 100 UNIT/ML INSULN.PEN SC ×2 (09:05→12:13)
[2022-02-24] MEDS: Carvedilol 12.5 MG Tablet PO ×2 (09:05→21:33)
[2022-02-24] MEDS: Insulin Lispro 100 UNIT/ML INSULN.PEN 30 UNIT SC ×2 (09:05→12:13)
[2022-02-24] MEDS: Furosemide 40 MG/4 ML Vial IV (09:05)
[2022-02-24] MEDS: Spironolactone 25 MG Tablet PO (09:05)
[2022-02-24] MEDS: Pantoprazole Sodium 40 MG Tablet PO ×2 (09:05→21:33)
--- NOTE | 2022-02-24 09:45 | CASEMGMT ---
RN KYLEE Face to Face with patient for initial transition planning/care coordination assessment. RN CM introduced self and role at [facility]. Patient lying in bed, alert and oriented. Patient willing to participate in assessment and is able to answer all questions appropriately. Care providers, pharmacy, and demographics verified. Patient wishes to discharge home, will monitor for HHC at discharge Patient states she has no further needs or concerns at this time. CM to follow for discharge planning needs that may arise. PCP: Jacob Specialists: none Preferred Pharmacy: [facility] Insurance: [employer] [facility] Prescription Benefit: yes Living Will/HPOA: none LNOK: Living Arrangements: Patient lives with in an apartment above their son's garage with either 4 steps or 12 steps both with railing to enter the home. Patient states she is independent at home. Transportation: , son, DIL DME/HHC: Patient states she has raised toilet, cane, walker, grab bars, and glucometer with supplies at home. Patient has no preferences for DME. No previous HHC or SNF. Will monitor for home oxygen and possible HHC at discharge. Disposition Plan: Patient to discharge home with family support and follow-up plans in place. CM to monitor for home oxygen and HHC at discharge. Melanie BRASWELL, RN, CM
[2022-02-24 12:01] LABS: Bedside Glucose 190 mg/dL (74-106)
--- NOTE | 2022-02-24 16:32 | PN.HOSP_ITS ---
Subjective Subjective Follow-up for CHF exacerbation, severe anemia and GI bleed. Objective Data Objective Data Vital Signs: Vital Signs Temp Pulse Resp BP Pulse Ox 98.1 F 66 16 105/45 L 91 02/24/22 11:30 02/24/22 15:35 02/24/22 15:35 02/24/22 11:30 02/24/22 11:51 Oxygen Flow Rate (L/min) 2 Oxygen Delivery Method Nasal Cannula Weight: 276 lb 3.827 oz Body Mass Index (BMI) 46.2 Intake & Output: Intake and Output for Last 24 Hours 02/22/22 02/23/22 02/24/22 23:59 23:59 23:59 Intake Total 980 / 980 278 / 478 784 / 784 Output Total 800 / 1150 700 / 1000 300 / 300 Balance 180 / -170 -422 / -522 484 / 484 Lab / Micro Data Result Diagrams: 02/24/22 04:34 02/24/22 04:34 Labs: Laboratory Results - last 24 hr 02/23/22 20:29: POC Glucose 125 H 02/24/22 04:34: WBC 8.7, RBC 3.25 L, Hgb 8.3 L, Hct 27.6 L, MCV 84.9, MCH 25.5 L , MCHC 30.1 L, RDW Std Deviation 47.9 H, RDW Coeff of Bulmaro 15.6 H, Plt Count 211, MPV 10.1, Immature Gran % (Auto) 0.700, Neut % (Auto) 76.5 H, Lymph % (Auto) 11.3 L, [place] % (Auto) 9.2, Eos % (Auto) 1.7, Baso % (Auto) 0.6, Absolute Neuts (auto) 6.7, Absolute Lymphs (auto) 0.99, Nucleated RBC % 0 02/24/22 04:34: Sodium 138, Potassium 4.6, Chloride 105, Carbon Dioxide 26.0, Anion Gap 7, BUN 44 H, Creatinine 2.50 H, Estim Creat Clear Calc 18.03, Est GFR (MDRD) Af Amer 24 L, Est GFR (MDRD) Non-Af 20 L, BUN/Creatinine Ratio 17.6, Glucose 142 H, Calcium 8.6, Total Bilirubin 1.00, AST 11 L, ALT 15, Alkaline Phosphatase 66, Total Protein 6.1 L, Albumin 2.8 L, Globulin 3.3, Albumin/Globulin Ratio 0.8 L 02/24/22 07:48: POC Glucose 219 H 02/24/22 11:20: POC Glucose 190 H Micro: Microbiology 02/22/22 10:05 Stool Stool Occult Blood (TREVOR) - Final Occult Blood Positive 02/22/22 08:38 Nasal Secretion SARS-CoV-2 & FLU Antigen (Rapid) - Final Physical Exam Narrative Seen and examined. Patient could not sleep while on CPAP but she tried. No shortness of breath or chest pain/pressure at rest. Patient has bilateral lower extremity edema for 3 to 4 months and was admitted with progressive worsening of shortness of breath for symptoms along with leg swelling. Physical exam General: Alert, Oriented x3, Cooperative, morbid obesity BMI 46.6 kg/m? HEENT: Atraumatic, PERRLA, EOMI, Normocephalic Oral: Deep oropharyngeal structures not clearly visualized. No Gingival or Mucosal Lesions/ Ulcerations Neck: Supple, No JVD, Negative Carotid Bruits Lungs: Air entry diminished in bilateral lung bases. No wheezing. No dyspnea at rest resolved. Cardiovascular: Regular rate, Regular Rhythm, Normal S1, Normal S2, No murmurs Abdomen: Bowel Sounds Present, Soft, Non Tender, Non-Distended : No renal angle tenderness. No suprapubic tenderness. Extremities: Pitting, bilateral LE edema up to knee level. Capillary Refill Less than 3 Seconds Skin: No rashes, No breakdown Musculoskeletal: No Tenderness to Palpation of Joints or Extremities Neurological: DTR 2+/4 and Symmetrical, Neuro grossly intact. Muscle strength 4/5 at major joints Psych/Mental Status: Flat affect. Assessment & Plan Assessment/Plan (1) CHF exacerbation: (2) Anemia: (3) GI bleed: (4) ELIDA (acute kidney injury): (5) Elevated d-dimer: PLAN: 1. Acute hypoxia secondary to acute exacerbation of chronic systolic and diastolic heart failure: Patient had repeat echo which showed EF 37%, RVSP 55 mmHg with a stage II diastolic dysfunction consistent with both systolic and diastolic heart failure. Patient oxygen is titrated down to 2 L. Patient is morbidly obese BMI 46.6 kg per metered square with mild wheezing I think she might have EDGARDO/restrictive lung disease. Patient was convinced for CPAP. Heart failure core measures including intake and output, fluid restriction less than 1500 mL, daily weight monitoring, kidney and electrolytes monitoring. Last echo in 2009 shows EF 50% with moderate pulmonary hypertension. TSH 5.15, upper limit of normal. Free T4 tomorrow. BNP elevated. Chest x-ray mutilative reviewed does not show acute abnormality. 02/24: Dyspnea at rest resolved. On 2 L of oxygen. BUN/creatinine ratio 17. Lasix IV changed to oral. Bicarb 26. Patient lost about 10 pounds since admission. 2. Anemia, acute symptomatic, probably secondary to chronic blood loss from acute GI bleed: Patient admitted hemoglobin 7.7, increased to 9.2. Had 2 units of PRBC transfusion. 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 Patient had coagulation with heater probe. Single 5 mm angiodysplastic lesion without bleeding in duodenal bulb. Hold Plavix. Chest x-ray is underventilated. No acute abnormality. PPI twice daily. 02/24: Hemoglobin 8.3, slight decrease from yesterday. No active bleeding. 3. ELIDA on CKD with unknown baseline probably CKD stage IIIb. Patient last creatinine was in September 2013 reported 1.4. Currently 1.84. Monitor kidney function. 02/24: Increase in creatinine to 2.5. As mentioned above, furosemide changed to oral. Monitor BMP. 4.. Elevated D-dimer, likely an acute phase reactant from CHF versus possible PE Bilateral Doppler ultrasound done in the ED was unremarkable 5. Type II DM, continue on insulin, A1c 8.2%. 6. Morbid obesity, BMI 47.0, complicates care and recovery, lifestyle modification recommended 7. DVT prophylaxis?SCDs 8. Full code I talked to the patient's and explained about the patient's comorbidities, diagnosis and management plan Clinical Impression(s) from Imaging Studies Chest X-Ray 02/22/22 08:56 IMPRESSION: No active disease. Echocardiogram 02/22/22 13:02 Interpretation Summary Normal LV size. The estimated ejection fraction is 37 %. Moderate segmental systolic dysfunction (see wall motion). Stage 2 diastolic dysfunction. Pulmonary artery systolic pressure is 55 mmHg. Contrast injection was performed. Compared to previous study, the left ventricular systolic function has worsened.. Charges/Coding Visit Charges Inpatient E&M: 69395 Subs Hosp L2
[2022-02-24 16:40] LABS: Bedside Glucose 81 mg/dL (74-106)
--- NOTE | 2022-02-24 16:46 | CASEMGMT ---
RYNE PICHARDO NOTE: PT/OT evals reviewed. Additional therapy recommended. RYNE PICHARDO to room to talk w/pt. Pt states she wishes to return home. Discussed HHC. Pt states she will think about it. She states her is a pack-rat and she is not sure if he would allow anyone to come into the house. RYNE PICHARDO placed call to pt and her home phone #. No answer and no option to leave a VM. Pt states her son is coming in this evening and she will discuss this with him. RYNE PICHARDO to follow for possible HHC referral tomorrow. Clotilde BRASWELL RN, CM
[2022-02-24 17:36] LABS: Bedside Glucose 88 mg/dL (74-106)
[2022-02-24] MEDS: Furosemide 40 MG Tablet PO (17:41)
--- NOTE | 2022-02-24 19:20 | CPS ---
Pt refusing BiPAP tonight
[2022-02-24] MEDS: Atorvastatin Calcium 40 MG Tablet PO (21:33)
[2022-02-24 22:21] LABS: Bedside Glucose 99 mg/dL (74-106)
[2022-02-25] VITALS (11 sets, daily range): BP systolic 120–142; BP diastolic 43–62; PULSE 62–72; RESP 18–20; TEMP 36.1–36.6; O2SAT 93–97
[2022-02-25 07:22] LABS: Absolute Lymphocyte Count 1.01 X10^3/uL (0.83-4.51); Absolute Neutrophil Count 6.9 X10^3/uL (2.0-7.7); Basophil# 0.09 X10^3/uL; Eosinophils% 2.2 % (0-5); Hematocrit 30.7 % (37-47); Hemoglobin 9.1 g/dL (12.0-15.0); Lymphocyte # 1.01 X10^3/ul (0.83-4.51); Lymphocyte % 11.2 % (19-41); Mean Corp Hgb Conc 29.6 g/dL (32-36); Mean Corpuscular Hgb 25.4 pg (27.0-32.0); Mean Corpuscular Volume 85.8 fL (81-99); Mean Platelet Vol. 10.7 fl (6.2-12.0); Monocyte% 8.8 % (0-10); NRBC Flagged by Analyzer 0 % (0-5); Neutrophil % 76.2 % (47-70); Platelet Count 243 K/mm3 (150-450); RBC Distribution Width CV 15.6 % (11.6-14.6); RBC Distribution Width SD 48.2 fl (35.1-43.9); Red Blood Count 3.58 M/mm3 (4.2-5.4); White Blood Count 9.1 K/mm3 (4.4-11.0)
[2022-02-25] MEDS: Ipratropium/Albuterol Sulfate 3 ML AMPUL.NEB INHALATION ×2 (07:28→11:08)
[2022-02-25 08:12] LABS: Anion Gap 9 (5-15); BUN 51 mg/dL (7-18); BUN/Creat Ratio 20.2 RATIO (10-20); Chloride 104 mmol/L (98-107); Creatinine, Serum 2.53 mg/dL (0.55-1.02); EST Glomerular Filtration Rate 20 mL/min (>60); Est Glom Filt Rate - Afr Amer 24 mL/min (>60); Estimated Creatinine Clearance 17.82 ml/min; Glucose 111 mg/dL (74-106); Magnesium 2.7 mg/dL (1.6-2.6); Phosphorus 4.5 mg/dL (2.5-4.9); Potassium 4.8 mmol/L (3.5-5.1); Sodium Level 137 mmol/L (136-145)
[2022-02-25] MEDS: Carvedilol 12.5 MG Tablet PO ×2 (09:20→21:01)
[2022-02-25] MEDS: Furosemide 40 MG Tablet PO ×2 (09:20→17:27)
[2022-02-25] MEDS: Spironolactone 25 MG Tablet PO (09:20)
[2022-02-25] MEDS: Pantoprazole Sodium 40 MG Tablet PO ×2 (09:20→21:01)
[2022-02-25 09:26] LABS: Bedside Glucose 119 mg/dL (74-106)
--- NOTE | 2022-02-25 10:35 | CASEMGMT ---
Per physician therapy said patient needs to go somewhere for rehab. SW met with patient. Introduced self and role at [facility]. SW spoke with patient about going somewhere for rehab. She was disappointed as she doesn't want to leave her for long. SW provided patient with a list of SNF providers including quality and resource use data and consistent with the patient?s preferred geographic region, medical needs, and insurance network. SW explained to patient SW needs patient to pick at least 3 facilities she would be okay with and then SW will check to see if places are able to take her. Patient asked for help with calling her . SW assisted patient in calling her . SW will check with patient regarding her choices. Lorraine LEE
[2022-02-25 11:25] LABS: Bedside Glucose 213 mg/dL (74-106)
--- NOTE | 2022-02-25 11:30 | CASEMGMT ---
EDVIN met with patient and her grandson. Patient's SNF choices were [facility] and [facility]. EDVIN will work on referrals. Lorraine LEE
--- NOTE | 2022-02-25 12:42 | CASEMGMT ---
SW sent referral to [facility]. EDVIN also called [facility] and left a message for Anastasiya. Await response. Lorraine See [employer]
[2022-02-25] MEDS: Insulin Lispro 100 UNIT/ML INSULN.PEN SC ×2 (12:44→17:08)
[2022-02-25] MEDS: Insulin Lispro 100 UNIT/ML INSULN.PEN 20 UNIT SC (12:45)
[2022-02-25] MEDS: Glucerna Shake 120 ML LIQUID PO ×2 (13:49→21:01)
--- NOTE | 2022-02-25 13:59 | PCM.PN.HOSP ---
Subjective Subjective Follow-up for CHF exacerbation, morbid obesity Patient shortness of breath improved at rest but gets SOB on exertion/dyspnea. She easily gets hypoxic on exertion. Objective Data Objective Data Vital Signs: Vital Signs Temp Pulse Resp BP Pulse Ox 97.9 F 70 18 130/43 H 95 02/25/22 09:15 02/25/22 09:15 02/25/22 11:08 02/25/22 09:15 02/25/22 10:38 Oxygen Flow Rate (L/min) 1 Oxygen Delivery Method Nasal Cannula Weight: 278 lb 14.156 oz Body Mass Index (BMI) 46.2 Intake & Output: Intake and Output for Last 24 Hours 02/23/22 02/24/22 02/25/22 23:59 23:59 23:59 Intake Total 278 / 478 1264 / 1464 680 / 680 Output Total 700 / 1000 300 / 300 Balance -422 / -522 964 / 1164 680 / 680 Lab / Micro Data Result Diagrams: 02/25/22 06:45 02/25/22 06:45 Labs: Laboratory Results - last 24 hr 02/24/22 16:30: POC Glucose 81 02/24/22 17:24: POC Glucose 88 02/24/22 21:31: POC Glucose 99 02/25/22 06:45: WBC 9.1, RBC 3.58 L, Hgb 9.1 L, Hct 30.7 L, MCV 85.8, MCH 25.4 L, MCHC 29.6 L, RDW Std Deviation 48.2 H, RDW Coeff of Bulmaro 15.6 H, Plt Count 243, MPV 10.7, Immature Gran % (Auto) 0.600, Neut % (Auto) 76.2 H, Lymph % (Auto) 11.2 L, [place] % (Auto) 8.8, Eos % (Auto) 2.2, Baso % (Auto) 1.0, Absolute Neuts (auto) 6.9, Absolute Lymphs (auto) 1.01, Nucleated RBC % 0 02/25/22 06:45: Sodium 137, Potassium 4.8, Chloride 104, Carbon Dioxide 24.0, Anion Gap 9, BUN 51 H, Creatinine 2.53 H, Estim Creat Clear Calc 17.82, Est GFR (MDRD) Af Amer 24 L, Est GFR (MDRD) Non-Af 20 L, BUN/Creatinine Ratio 20.2 H, Glucose 111 H, Calcium 9.0, Phosphorus 4.5, Magnesium 2.7 H 02/25/22 08:06: POC Glucose 119 H 02/25/22 11:18: POC Glucose 213 H Micro: Microbiology 02/22/22 08:39 Blood Culture (Wb) - Anticubital Right Blood Culture - Preliminary No growth in 48 hours. 02/22/22 08:25 Blood Culture (Wb) - Left Forearm Blood Culture - Preliminary No growth in 48 hours. 02/22/22 10:05 Stool Stool Occult Blood (TREVOR) - Final Occult Blood Positive 02/22/22 08:38 Nasal Secretion SARS-CoV-2 & FLU Antigen (Rapid) - Final Physical Exam Narrative Seen and examined. Dyspnea and hypoxia on mild exertion. No chest pressure. Patient evaluated by PT and OT recommended SNF. Patient has bilateral lower extremity edema for 3 to 4 months and was admitted with progressive worsening of shortness of breath for symptoms along with leg swelling. Physical exam General: Alert, Oriented x3, Cooperative, morbid obesity BMI 46.6 kg/m? HEENT: Atraumatic, PERRLA, EOMI, Normocephalic Oral: Deep oropharyngeal structures not clearly visualized. No Gingival or Mucosal Lesions/ Ulcerations Neck: Supple, No JVD, Negative Carotid Bruits Lungs: Air entry diminished in bilateral lung bases. No wheezing. Dyspnea on exertion Cardiovascular: Regular rate, Regular Rhythm, Normal S1, Normal S2, No murmurs Abdomen: Bowel Sounds Present, Soft, Non Tender, Non-Distended : No renal angle tenderness. No suprapubic tenderness. Extremities: Pitting, bilateral LE edema 2+, improving. Capillary Refill Less than 3 Seconds Skin: No rashes, No breakdown Musculoskeletal: No Tenderness to Palpation of Joints or Extremities Neurological: DTR 2+/4 and Symmetrical, Neuro grossly intact. Muscle strength 4/5 at major joints Psych/Mental Status: Flat affect. Assessment & Plan Assessment/Plan (1) CHF exacerbation: (2) Anemia: (3) GI bleed: (4) ELIDA (acute kidney injury): (5) Elevated d-dimer: PLAN: 1. Acute hypoxia secondary to acute exacerbation of chronic systolic and diastolic heart failure: Patient had repeat echo which showed EF 37%, RVSP 55 mmHg with a stage II diastolic dysfunction consistent with both systolic and diastolic heart failure. Patient oxygen is titrated down to 2 L. Patient is morbidly obese BMI 46.6 kg per metered square with mild wheezing I think she might have EDGARDO/restrictive lung disease. Patient was convinced for CPAP. Heart failure core measures including intake and output, fluid restriction less than 1500 mL, daily weight monitoring, kidney and electrolytes monitoring. Last echo in 2009 shows EF 50% with moderate pulmonary hypertension. TSH 5.15, upper limit of normal. Free T4 tomorrow. BNP elevated. Chest x-ray mutilative reviewed does not show acute abnormality. 02/24: Dyspnea at rest resolved. On 2 L of oxygen. BUN/creatinine ratio 17. Lasix IV changed to oral. Bicarb 26. Patient lost about 10 pounds since admission. 02/25: Dyspnea on mild exertion. On mild exertion, physical therapy patient oxygen dropped to 84% on 2 L of oxygen. She also has bilateral knee arthritis and weakness lower extremity 12/30. Continue diuretic 2. Anemia, acute symptomatic, probably secondary to chronic blood loss from acute GI bleed: Patient admitted hemoglobin 7.7, increased to 9.2. Had 2 units of PRBC transfusion. 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 Patient had coagulation with heater probe. Single 5 mm angiodysplastic lesion without bleeding in duodenal bulb. Hold Plavix. Chest x-ray is underventilated. No acute abnormality. PPI twice daily. 02/24: Hemoglobin 8.3, slight decrease from yesterday. No active bleeding. 3. ELIDA on CKD with unknown baseline probably CKD stage IIIb. Patient last creatinine was in September 2013 reported 1.4. Currently 1.84. Monitor kidney function. 02/24: Increase in creatinine to 2.5. As mentioned above, furosemide changed to oral. Monitor BMP. 02/25: Creatinine 2.53. BUN increasing. Lasix changed to oral 40 mg p.o. twice daily on 02/24 and continue. 4.. Elevated D-dimer, likely an acute phase reactant from CHF versus possible PE Bilateral Doppler ultrasound done in the ED was unremarkable 5. Type II DM, continue on insulin, A1c 8.2%. 02/25: Glucose in the 110s. Scheduled Lantus and Humalog insulin on hold. Continue Humalog sliding scale. Discussed with nursing staff. 6. Morbid obesity, BMI 47.0, complicates care and recovery, lifestyle modification recommended 7. DVT prophylaxis?SCDs 8. Full code I talked to the patient's and explained about the patient's comorbidities, diagnosis and management plan Patient agreeable for SNF. Discussed with case monitor. Clinical Impression(s) from Imaging Studies Chest X-Ray 02/22/22 08:56 IMPRESSION: No active disease. Echocardiogram 02/22/22 13:02 Interpretation Summary Normal LV size. The estimated ejection fraction is 37 %. Moderate segmental systolic dysfunction (see wall motion). Stage 2 diastolic dysfunction. Pulmonary artery systolic pressure is 55 mmHg. Contrast injection was performed. Compared to previous study, the left ventricular systolic function has worsened.. Charges/Coding Visit Charges Inpatient E&M: 90689 Subs Hosp L2
--- NOTE | 2022-02-25 14:12 | CASEMGMT ---
RYNE PICHARDO NOTE: RYNE PICHARDO NOTE: Pt qualifies for a Palliative referral per the [facility] palliative screening tool at this time. Dr Gomez aware and states ok for Palliative c/s at this time. Order placed. E-mail sent to Palliative to notify them of c/s. Clotilde BRASWELL RN, CM
--- NOTE | 2022-02-25 15:19 | CASEMGMT ---
EDVIN received a return call from Anastasiya at [facility] and they can accept patient. Anastasiya will start pre-cert. EDVIN notified patient, her son, RN, and paralegal secretary. Plan: d/c to [facility] pending insurance approval. Lorraine LEE
[2022-02-25 16:35] LABS: Bedside Glucose 186 mg/dL (74-106)
--- NOTE | 2022-02-25 17:07 | PCM.PROGNOTE ---
Subjective Subjective Mrs. Myers underwent an upper endoscopy. She was discovered to have 3 AVMs that were seen with bleeding stigmata. 2 of which were in her stomach and one was in the proximal portion of her duodenum. They were treated with Endo cautery therapy. She is not having any signs of bleeding at this time. She is tolerating a diet. Breathing is a little better. Objective Data Objective Data Vital Signs: Vital Signs Temp Pulse Resp BP Pulse Ox 97.7 F L 71 18 142/47 H 97 02/25/22 15:12 02/25/22 15:12 02/25/22 15:12 02/25/22 15:12 02/25/22 15:12 Oxygen Flow Rate (L/min) 2 Oxygen Delivery Method Nasal Cannula Weight: 278 lb 14.156 oz Body Mass Index (BMI) 46.2 Intake & Output: Intake and Output for Last 24 Hours 02/23/22 02/24/22 02/25/22 23:59 23:59 23:59 Intake Total 278 / 478 1264 / 1464 680 / 680 Output Total 700 / 1000 300 / 300 Balance -422 / -522 964 / 1164 680 / 680 Lab / Micro Data Result Diagrams: 02/25/22 06:45 02/25/22 06:45 Labs: Laboratory Results - last 24 hr 02/24/22 17:24: POC Glucose 88 02/24/22 21:31: POC Glucose 99 02/25/22 06:45: WBC 9.1, RBC 3.58 L, Hgb 9.1 L, Hct 30.7 L, MCV 85.8, MCH 25.4 L, MCHC 29.6 L, RDW Std Deviation 48.2 H, RDW Coeff of Bulmaro 15.6 H, Plt Count 243, MPV 10.7, Immature Gran % (Auto) 0.600, Neut % (Auto) 76.2 H, Lymph % (Auto) 11.2 L, [place] % (Auto) 8.8, Eos % (Auto) 2.2, Baso % (Auto) 1.0, Absolute Neuts (auto) 6.9, Absolute Lymphs (auto) 1.01, Nucleated RBC % 0 02/25/22 06:45: Sodium 137, Potassium 4.8, Chloride 104, Carbon Dioxide 24.0, Anion Gap 9, BUN 51 H, Creatinine 2.53 H, Estim Creat Clear Calc 17.82, Est GFR (MDRD) Af Amer 24 L, Est GFR (MDRD) Non-Af 20 L, BUN/Creatinine Ratio 20.2 H, Glucose 111 H, Calcium 9.0, Phosphorus 4.5, Magnesium 2.7 H 02/25/22 08:06: POC Glucose 119 H 02/25/22 11:18: POC Glucose 213 H 02/25/22 16:31: POC Glucose 186 H Micro: Microbiology 02/22/22 08:39 Blood Culture (Wb) - Anticubital Right Blood Culture - Preliminary No growth in 48 hours. 02/22/22 08:25 Blood Culture (Wb) - Left Forearm Blood Culture - Preliminary No growth in 48 hours. 02/22/22 10:05 Stool Stool Occult Blood (TREVOR) - Final Occult Blood Positive 02/22/22 08:38 Nasal Secretion SARS-CoV-2 & FLU Antigen (Rapid) - Final Physical Exam Const alert General Appearance: cooperative Orientation / Consciousness: oriented to person HEENT hearing grossly normal bilaterally Head and Scalp: normal to inspection Face and Sinus: face symmetric Nose: external nose normal Mouth: oral and palatal mucosa normal Eyes conjunctivae normal General Eye: normal appearance of both eyes Neck full ROM General: normal visual inspection Lymph Lymphatic: no lymphadenopathy noted Chest inspection of chest normal and palpation of chest normal Chest: symmetrical chest wall rise Resp normal respiratory effort Effort and Inspection: able to speak in complete sentences Cardio regular rate GI non-distended Percussion: normal to percussion Rectal Exam: deferred Neuro Speech: speech normal Gait (Neuro): normal gait Assessment & Plan Assessment/Plan (1) GI bleed: PLAN: Patient was found to have 3 AVMs in her upper GI tract that were treated endoscopically. Hemoglobin is improving from 8.3-9.1 status post endoscopic treatment. I would recommend that she have a capsule endoscopy and a colonoscopy as an outpatient to make sure she does not have any more AVMs in her GI tract that would cause her to become anemic and then compromise her respiratory status. Charges/Coding Visit Charges Inpatient E&M: 70228 Subs Hosp L2
[2022-02-25] MEDS: Insulin Lispro 100 UNIT/ML INSULN.PEN 15 UNIT SC (17:09)
[2022-02-25] MEDS: Atorvastatin Calcium 40 MG Tablet PO (21:01)
[2022-02-25 22:56] LABS: Bedside Glucose 111 mg/dL (74-106)
[2022-02-25] MEDS: Ondansetron 4 MG/2 ML Vial IV (23:11)
[2022-02-25] MEDS: Acetaminophen 325 MG Tablet 650 MG PO (23:11)
[2022-02-26] VITALS (9 sets, daily range): BP systolic 113–129; BP diastolic 54–64; PULSE 65–77; RESP 18; TEMP 36.4–36.6; O2SAT 93–99
--- NOTE | 2022-02-26 01:44 | CPS ---
pt declines bipap, unable to tolerate
[2022-02-26 06:57] LABS: Absolute Lymphocyte Count 0.89 X10^3/uL (0.83-4.51); Absolute Neutrophil Count 5.6 X10^3/uL (2.0-7.7); Basophil# 0.05 X10^3/uL; Basophil% 0.7 % (0-1); Eosinophil# 0.13 X10^3/uL; Eosinophils% 1.8 % (0-5); Hematocrit 28.4 % (37-47); Hemoglobin 8.4 g/dL (12.0-15.0); Lymphocyte # 0.89 X10^3/ul (0.83-4.51); Mean Corp Hgb Conc 29.6 g/dL (32-36); Mean Corpuscular Hgb 25.4 pg (27.0-32.0); Mean Corpuscular Volume 85.8 fL (81-99); Mean Platelet Vol. 10.8 fl (6.2-12.0); Monocyte# 0.74 X10^3/uL; NRBC Flagged by Analyzer 0 % (0-5); Neutrophil # 5.58 X10^3/uL (2.7-7.7); Neutrophil % 75.1 % (47-70); Platelet Count 219 K/mm3 (150-450); RBC Distribution Width CV 15.5 % (11.6-14.6); RBC Distribution Width SD 48.4 fl (35.1-43.9); Red Blood Count 3.31 M/mm3 (4.2-5.4); White Blood Count 7.4 K/mm3 (4.4-11.0)
[2022-02-26] MEDS: Insulin Lispro 100 UNIT/ML INSULN.PEN SC ×3 (07:01→16:59)
[2022-02-26 07:06] LABS: Bedside Glucose 229 mg/dL (74-106)
[2022-02-26 07:21] LABS: Anion Gap 6 (5-15); BUN 55 mg/dL (7-18); BUN/Creat Ratio 23.6 RATIO (10-20); Calcium,Total 8.5 mg/dL (8.5-10.1); Chloride 103 mmol/L (98-107); Creatinine, Serum 2.33 mg/dL (0.55-1.02); EST Glomerular Filtration Rate 22 mL/min (>60); Est Glom Filt Rate - Afr Amer 26 mL/min (>60); Estimated Creatinine Clearance 19.35 ml/min; Glucose 254 mg/dL (74-106); Potassium 5.1 mmol/L (3.5-5.1); Sodium Level 136 mmol/L (136-145)
[2022-02-26] MEDS: Insulin Lispro 100 UNIT/ML INSULN.PEN 15 UNIT SC ×2 (08:21→12:41)
[2022-02-26] MEDS: Insulin Glargine-YFGN 100 UNIT/ML Pen 70 UNIT SC (08:22)
[2022-02-26] MEDS: Furosemide 40 MG Tablet PO (09:21)
[2022-02-26] MEDS: Pantoprazole Sodium 40 MG Tablet PO (09:21)
[2022-02-26] MEDS: Spironolactone 25 MG Tablet PO (09:21)
[2022-02-26] MEDS: Carvedilol 12.5 MG Tablet PO (09:21)
[2022-02-26 11:55] LABS: Bedside Glucose 334 mg/dL (74-106)
--- NOTE | 2022-02-26 14:23 | PCM.PN.HOSP ---
Subjective Subjective Follow-up for CHF exacerbation Short of breath on minimal exertion to walking to bathroom. Objective Data Objective Data Vital Signs: Vital Signs Temp Pulse Resp BP Pulse Ox 97.8 F 67 18 129/54 H 93 02/26/22 09:15 02/26/22 09:15 02/26/22 09:15 02/26/22 09:15 02/26/22 13:42 Oxygen Flow Rate (L/min) 1.5 Oxygen Delivery Method Nasal Cannula Weight: 278 lb 0.046 oz Body Mass Index (BMI) 46.2 Intake & Output: Intake and Output for Last 24 Hours 02/24/22 02/25/22 02/26/22 23:59 23:59 23:59 Intake Total 1264 / 1464 1040 / 1290 470 / 470 Output Total 300 / 300 Balance 964 / 1164 1040 / 1290 470 / 470 Lab / Micro Data Result Diagrams: 02/26/22 06:00 02/26/22 06:00 Labs: Laboratory Results - last 24 hr 02/25/22 16:31: POC Glucose 186 H 02/25/22 21:04: POC Glucose 111 H 02/26/22 06:00: WBC 7.4, RBC 3.31 L, Hgb 8.4 L, Hct 28.4 L, MCV 85.8, MCH 25.4 L, MCHC 29.6 L, RDW Std Deviation 48.4 H, RDW Coeff of Bulmaro 15.5 H, Plt Count 219, MPV 10.8, Immature Gran % (Auto) 0.400, Neut % (Auto) 75.1 H, Lymph % (Auto) 12.0 L, Reagan % (Auto) 10.0, Eos % (Auto) 1.8, Baso % (Auto) 0.7, Absolute Neuts (auto) 5.6, Absolute Lymphs (auto) 0.89, Nucleated RBC % 0 02/26/22 06:00: Sodium 136, Potassium 5.1, Chloride 103, Carbon Dioxide 27.0, Anion Gap 6, BUN 55 H, Creatinine 2.33 H, Estim Creat Clear Calc 19.35, Est GFR (MDRD) Af Amer 26 L, Est GFR (MDRD) Non-Af 22 L, BUN/Creatinine Ratio 23.6 H, Glucose 254 H, Calcium 8.5 02/26/22 06:59: POC Glucose 229 H 02/26/22 11:50: POC Glucose 334 H Micro: Microbiology 02/22/22 08:39 Blood Culture (Wb) - Anticubital Right Blood Culture - Preliminary No growth in 48 hours. 02/22/22 08:25 Blood Culture (Wb) - Left Forearm Blood Culture - Preliminary No growth in 48 hours. 02/22/22 10:05 Stool Stool Occult Blood (TREVOR) - Final Occult Blood Positive 02/22/22 08:38 Nasal Secretion SARS-CoV-2 & FLU Antigen (Rapid) - Final Physical Exam Narrative Seen and examined. No chest pressure. Patient evaluated by PT and OT recommended SNF. Patient has bilateral lower extremity edema for 3 to 4 months and was admitted with progressive worsening of shortness of breath for symptoms along with leg swelling. Physical exam General: Alert, Oriented x3, Cooperative, morbid obesity BMI 46.6 kg/m? HEENT: Atraumatic, PERRLA, EOMI, Normocephalic Oral: Deep oropharyngeal structures not clearly visualized. No Gingival or Mucosal Lesions/ Ulcerations Neck: Supple, No JVD, Negative Carotid Bruits Lungs: Air entry diminished in bilateral lung bases. No wheezing. Dyspnea on exertion Cardiovascular: Regular rate, Regular Rhythm, Normal S1, Normal S2, No murmurs Abdomen: Bowel Sounds Present, Soft, Non Tender, Non-Distended : No renal angle tenderness. No suprapubic tenderness. Extremities: Pitting, bilateral LE edema 2+, improved to lower legs. Capillary Refill Less than 3 Seconds Skin: No rashes, No breakdown Musculoskeletal: No Tenderness to Palpation of Joints or Extremities Neurological: DTR 2+/4 and Symmetrical, Neuro grossly intact. Muscle strength 4/5 at major joints Psych/Mental Status: Flat affect. Assessment & Plan Assessment/Plan (1) CHF exacerbation: (2) Anemia: (3) GI bleed: (4) ELIDA (acute kidney injury): (5) Elevated d-dimer: PLAN: 1. Acute hypoxia secondary to acute exacerbation of chronic systolic and diastolic heart failure: Patient had repeat echo which showed EF 37%, RVSP 55 mmHg with a stage II diastolic dysfunction consistent with both systolic and diastolic heart failure. Patient oxygen is titrated down to 2 L. Patient is morbidly obese BMI 46.6 kg per metered square with mild wheezing I think she might have EDGARDO/restrictive lung disease. Patient was convinced for CPAP. Heart failure core measures including intake and output, fluid restriction less than 1500 mL, daily weight monitoring, kidney and electrolytes monitoring. Last echo in 2009 shows EF 50% with moderate pulmonary hypertension. TSH 5.15, upper limit of normal. Free T4 tomorrow. BNP elevated. Chest x-ray mutilative reviewed does not show acute abnormality. 02/24: Dyspnea at rest resolved. On 2 L of oxygen. BUN/creatinine ratio 17. Lasix IV changed to oral. Bicarb 26. Patient lost about 10 pounds since admission. 02/25: Dyspnea on mild exertion. On mild exertion, physical therapy patient oxygen dropped to 84% on 2 L of oxygen. She also has bilateral knee arthritis and weakness lower extremity 12/30. Continue diuretic 2. Anemia, acute symptomatic, probably secondary to chronic blood loss from acute GI bleed: Patient admitted hemoglobin 7.7, increased to 9.2. Had 2 units of PRBC transfusion. 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 Patient had coagulation with heater probe. Single 5 mm angiodysplastic lesion without bleeding in duodenal bulb. Hold Plavix. Chest x-ray is underventilated. No acute abnormality. PPI twice daily. 02/24: Hemoglobin 8.3, slight decrease from yesterday. No active bleeding. 3. ELIDA on CKD with unknown baseline probably CKD stage IIIb. Patient last creatinine was in September 2013 reported 1.4. Currently 1.84. Monitor kidney function. 02/24: Increase in creatinine to 2.5. As mentioned above, furosemide changed to oral. Monitor BMP. 02/25: Creatinine 2.53. BUN increasing. Lasix changed to oral 40 mg p.o. twice daily on 02/24 and continue. 02/26: Creatinine 2.3, bicarb 27. Her electrolytes and kidney function is stable on furosemide 40 mg twice daily. 4.. Elevated D-dimer, likely an acute phase reactant from CHF versus possible PE Bilateral Doppler ultrasound done in the ED was unremarkable 5. Type II DM, continue on insulin, A1c 8.2%. 02/25: Glucose in the 110s. Scheduled Lantus and Humalog insulin on hold. Continue Humalog sliding scale. Discussed with nursing staff. 02/26: Glucose 186, 229 and 334. Glucose on BMP 254. Insulin lispro dose increased to 20 units 3 times daily with meals 6. Morbid obesity, BMI 47.0, complicates care and recovery, lifestyle modification recommended 7. DVT prophylaxis?SCDs 8. Full code I talked to the patient's and explained about the patient's comorbidities, diagnosis and management plan Patient agreeable for SNF. Discussed with rifle case repairer. Clinical Impression(s) from Imaging Studies Chest X-Ray 02/22/22 08:56 IMPRESSION: No active disease. Echocardiogram 02/22/22 13:02 Interpretation Summary Normal LV size. The estimated ejection fraction is 37 %. Moderate segmental systolic dysfunction (see wall motion). Stage 2 diastolic dysfunction. Pulmonary artery systolic pressure is 55 mmHg. Contrast injection was performed. Compared to previous study, the left ventricular systolic function has worsened.. Charges/Coding Visit Charges Inpatient E&M: 35084 Subs Hosp L2
--- NOTE | 2022-02-26 15:12 | PCM.TXEXTCAR ---
Diet 02/25/22 10:20 Diabetic [Diet: Consistent Carb - Calorie Controlled] Dietary Modifications:: Cardiac / Heart Healthy Consistent Carbohydrate Is pt able to select menu?: Yes How many daily calories?: 1800 calorie Routine Orders/Code Status Suppository Type: Dulcolax 10mg Suppository Frequency: Daily PRN Routine Lab Work: BMP (Every week to monitor electrolytes and kidney function. Patient on diuretic) Code Status: Full Code Wound(s) Forehead: Wound Type: spider bite per pt Therapies Weight Bearing: Weight bearing as tolerated Extremity Affected:: Bilateral Lower Physical Therapy: Eval and Treat Occupational Therapy: Eval and Treat Speech Therapy: Eval and Treat Problem/Diagnosis (1) CHF exacerbation: Status: Chronic (2) Anemia: Status: Acute (3) GI bleed: Status: Acute (4) ELIDA (acute kidney injury): Status: Acute (5) Elevated d-dimer: Status: Acute Allergies/Procedures Done in Hospital Allergies No Known Allergies Allergy (Verified 09/26/13 02:33) Type of Care/Length of Stay Estimated LOS: Convalescent Care Less Than 30 days Type of Care Needed: Skilled Rehab Potential: Good Prognosis: Good Additional Orders/Day of Discharge Day of Discharge: 02/26/22 Dietary and Speech Recommendations Dietitian Recommendations/Changes: continue cardiac, 1800 calorie controlled diet w/ fluid restriction as indicated; will d/c glucerna 120mL TID given adequate PO intake Discharge Plan Admission Admit Date/Time: 02/22/22 11:12 Primary Reason for Your Visit: CHF exacerbation Attending Provider: Zachery Gomez Primary Care Provider: Nabor James Consulting Providers: Marva Mckeon Instructions Additional Instructions / Restrictions: Hold next scheduled Lantus and Humalog insulin if Accu-Chek is less than 130 mg/dL Discharge Orders/Prescriptions Prescriptions: New acetaminophen [Tylenol] 325 mg Tablet 650 mg PO Q6H PRN PRN (Reason: Pain Score 1-10/Temp > 100.7 F) Qty: 0 RF: 0 GlucaGen Diagnostic Kit 1 mg/mL Recon Soln 1 mg IM X1 PRN (Reason: Hypoglycemia) Qty: 0 RF: 0 ipratropium-albuterol 0.5 mg-3 mg(2.5 mg base)/3 mL Solution For Nebulization 3 ml inhalation Q4H.RT PRN (Reason: SOB &/OR WHEEZING) Qty: 0 RF: 0 pantoprazole 40 mg Tablet,Delayed Release (Dr/Ec) 40 mg PO BID Qty: 0 RF: 0 insulin lispro [Humalog KwikPen Insulin] 100 unit/mL Insulin Pen See Protocol unit subcut ACHS Qty: 0 RF: 0 Continued atorvastatin 40 mg tablet 40 mg PO QHS RF: 0 carvedilol 12.5 mg tablet 12.5 mg PO BID RF: 0 clopidogrel 75 mg tablet 75 mg PO DAILY RF: 0 spironolactone 25 mg tablet 25 mg PO DAILY RF: 0 Changed furosemide 40 mg tablet 40 mg PO BID Qty: 0 RF: 0 insulin lispro 100 unit/mL insulin pen 20 unit SUBCUT TIDCM Qty: 0 RF: 0 Levemir FlexTouch U-100 Insuln 100 unit/mL (3 mL) insulin pen 70 unit SUBCUT BREAKFAST Qty: 0 RF: 0 Held valsartan 160 mg tablet 160 mg PO DAILY RF: 0 Hold Instructions: Hold for 7 days until creatinine is 2.0. Referrals / Follow Up: Harry Stallings MD [STAFF PHYSICIAN] - Within 1 Month (For CHF) Nabor James MD [Primary Care Provider] - Within 2 Weeks Disposition Disposition (needs filled in before D/C Order can be placed): [facility]
--- NOTE | 2022-02-26 15:54 | CASEMGMT ---
EDVIN received a call from Anastasiya at [facility]. Patient was approved. EDVIN notified physician, RN, marketing secretary, patient, and her son who was in the room. Convalescent form completed on . RN to get COVID test. Await orders. Lorraine See CASE BRIEFER JESUS
--- NOTE | 2022-02-26 16:20 | DS.PCM_ITS ---
Providers Date of Admission: 02/22/22 Date of Discharge: 02/26/22 Primary Care Physician: Dr. Nabor James MD Consultations 02/22/22 13:02 Consult: Gastroenterology Routine Consulting Provider: [facility] Reason for Consult: GI bleed EMERGENT Consult: No MD Notified: Yes Date Notified: 02/22/22 Time Notified: 13:03 Method of Notification: Text Reason For Visit: CHF Diagnosis Discharge Diagnosis (1) CHF exacerbation: Status: Chronic Code(s): I50.9 - Heart failure, unspecified (2) Anemia: Status: Acute Code(s): D64.9 - Anemia, unspecified (3) GI bleed: Status: Acute Code(s): K92.2 - Gastrointestinal hemorrhage, unspecified (4) ELIDA (acute kidney injury): Status: Acute Code(s): N17.9 - Acute kidney failure, unspecified (5) Elevated d-dimer: Status: Acute Code(s): R79.89 - Other specified abnormal findings of blood chemistry Medications at Discharge Home Medications atorvastatin 40 mg PO QHS 02/22/22 carvedilol 12.5 mg PO BID 02/22/22 clopidogrel 75 mg PO DAILY 02/22/22 spironolactone 25 mg PO DAILY 02/22/22 valsartan 160 mg PO DAILY 02/22/22 Levemir FlexTouch U-100 Insuln 70 unit SUBCUT BREAKFAST #0 ml 02/26/22 acetaminophen [Tylenol] 650 mg PO Q6H PRN PRN #0 tab 02/26/22 furosemide 40 mg PO BID #0 tab 02/26/22 glucagon [GlucaGen Diagnostic Kit] 1 mg IM X1 PRN #0 ea 02/26/22 insulin lispro 20 unit SUBCUT TIDCM #0 ml 02/26/22 insulin lispro [Humalog KwikPen Insulin] See Protocol SUBCUT ACHS #0 ml 02/26/22 ipratropium-albuterol 3 ml INHALATION Q4H.RT PRN #0 ml 02/26/22 pantoprazole 40 mg PO BID #0 tab 02/26/22 Hospital Course Summary of Care Provided Hospital Course: This 71-year-old female admitted for progressive worsening of shortness of breath for 1 month along with bilateral lower extremity edema consistent with CHF exacerbation. She has history of coronary artery disease status post stents. Her further detail hospital course, assessment and ma nagement plan as mentioned below: 1. Acute hypoxia secondary to acute exacerbation of chronic systolic and diastolic heart failure: Patient had repeat echo which showed EF 37%, RVSP 55 mmHg with a stage II diastolic dysfunction consistent with both systolic and diastolic heart failure. Patient oxygen is titrated down to 2 L. Patient is morbidly obese BMI 46.6 kg per metered square with mild wheezing I think she might have EDGARDO/restrictive lung disease. Patient was convinced for CPAP. Heart failure core measures including intake and output, fluid restriction less than 1500 mL, daily weight monitoring, kidney and electrolytes monitoring. Last echo in 2009 shows EF 50% with moderate pulmonary hypertension. TSH 5.15, upper limit of normal. Free T4 tomorrow. BNP elevated. Chest x-ray mutilative reviewed does not show acute abnormality. 02/24: Dyspnea at rest resolved. On 2 L of oxygen. BUN/creatinine ratio 17. Lasix IV changed to oral. Bicarb 26. Patient lost about 10 pounds since admission. 02/25: Dyspnea on mild exertion. On mild exertion, physical therapy patient oxygen dropped to 84% on 2 L of oxygen. She also has bilateral knee arthritis and weakness lower extremity 12/30. Continue diuretic 02/26: Patient is still requires 1 L at rest but hypoxia worsens on exertion. 2. Anemia, acute symptomatic, probably secondary to chronic blood loss from acute GI bleed: Patient admitted hemoglobin 7.7, increased to 9.2. Had 2 units of PRBC transfusion. 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 Patient had coagulation with heater probe. Single 5 mm angiodysplastic lesion without bleeding in duodenal bulb. Hold Plavix. Chest x-ray is underventilated. No acute abnormality. PPI twice daily. 02/26: Hemoglobin 8.4. No external active bleeding. 3. ELIDA on CKD with unknown baseline probably CKD stage IIIb. Patient last creatinine was in September 2013 reported 1.4. Currently 1.84. Monitor kidney function. 02/24: Increase in creatinine to 2.5. As mentioned above, furosemide changed to oral. Monitor BMP. 02/25: Creatinine 2.53. BUN increasing. Lasix changed to oral 40 mg p.o. twice daily on 02/24 and continue. 6/2: Creatinine 2.3, bicarb 27. Her electrolytes and kidney function is stable on furosemide 40 mg twice daily. ELIDA resolved. Monitor electrolytes every week and correct electrolytes accordingly. Patient on his spironolactone. 4.. Elevated D-dimer, likely an acute phase reactant from CHF versus possible PE Bilateral Doppler ultrasound done in the ED was unremarkable 5. Type II DM, continue on insulin, A1c 8.2%. 02/25: Glucose in the 110s. Scheduled Lantus and Humalog insulin on hold. Continue Humalog sliding scale. Discussed with nursing staff. 02/26: Glucose 186, 229 and 334. Glucose on BMP 254. Insulin lispro dose increased to 20 units 3 times daily with meals 6. Morbid obesity, BMI 47.0, complicates care and recovery, lifestyle modification recommended 7. DVT prophylaxis?SCDs 8. Full code Discharge medication reconciliation done. Discharge follow-up instructions completed. Discharge process discussed with the patient and all questions were answered to patient's satisfaction. Discharged to SNF. Total time spent, exact 35 minutes on discharge meds reconciliation, examination, coordination of care with nurses and ancillary staff, review of imaging and blood test and discussion with the patient on follow-up instructions. Physical Exam Narrative Please see progress note of the same date. Weight / BMI Weight Weight: 278 lb 0.046 oz Body Mass Index (BMI) 46.2 ABG / Lab / Microbiology Data Result Diagrams: 02/26/22 06:00 02/26/22 06:00 Laboratory: Laboratory Results - last 24 hr 02/25/22 16:31: POC Glucose 186 H 02/25/22 21:04: POC Glucose 111 H 02/26/22 06:00: WBC 7.4, RBC 3.31 L, Hgb 8.4 L, Hct 28.4 L, MCV 85.8, MCH 25.4 L , MCHC 29.6 L, RDW Std Deviation 48.4 H, RDW Coeff of Bulmaro 15.5 H, Plt Count 219, MPV 10.8, Immature Gran % (Auto) 0.400, Neut % (Auto) 75.1 H, Lymph % (Auto) 12.0 L, [place] % (Auto) 10.0, Eos % (Auto) 1.8, Baso % (Auto) 0.7, Absolute Neuts (auto) 5.6, Absolute Lymphs (auto) 0.89, Nucleated RBC % 0 02/26/22 06:00: Sodium 136, Potassium 5.1, Chloride 103, Carbon Dioxide 27.0, Anion Gap 6, BUN 55 H, Creatinine 2.33 H, Estim Creat Clear Calc 19.35, Est GFR (MDRD) Af Amer 26 L, Est GFR (MDRD) Non-Af 22 L, BUN/Creatinine Ratio 23.6 H, Glucose 254 H, Calcium 8.5 02/26/22 06:59: POC Glucose 229 H 02/26/22 11:50: POC Glucose 334 H Microbiology: Microbiology 02/22/22 08:39 Blood Culture (Wb) - Anticubital Right Blood Culture - Preliminary No growth in 48 hours. 02/22/22 08:25 Blood Culture (Wb) - Left Forearm Blood Culture - Preliminary No growth in 48 hours. 02/22/22 10:05 Stool Stool Occult Blood (TREVOR) - Final Occult Blood Positive 02/22/22 08:38 Nasal Secretion SARS-CoV-2 & FLU Antigen (Rapid) - Final Meaningful Use Info Meaningful Use Diagnoses (Choose all that apply): CHF CHF DIANA/ARB ordered at discharge?: No Reason DIANA/ARB not ordered?: Worsening renal dysfunctn Documented LVEF (%): 37 Discharge Plan Admission Admit Date/Time: 02/22/22 11:12 Primary Reason for Your Visit: CHF exacerbation Attending Provider: Zachery Gomez Primary Care Provider: Nabor James Consulting Providers: Marva Mckeon Instructions Additional Instructions / Restrictions: Hold next scheduled Lantus and Humalog insulin if Accu-Chek is less than 130 mg/dL Discharge Orders/Prescriptions Prescriptions: New acetaminophen [Tylenol] 325 mg Tablet 650 mg PO Q6H PRN PRN (Reason: Pain Score 1-10/Temp > 100.7 F) Qty: 0 RF: 0 GlucaGen Diagnostic Kit 1 mg/mL Recon Soln 1 mg IM X1 PRN (Reason: Hypoglycemia) Qty: 0 RF: 0 ipratropium-albuterol 0.5 mg-3 mg(2.5 mg base)/3 mL Solution For Nebulization 3 ml inhalation Q4H.RT PRN (Reason: SOB &/OR WHEEZING) Qty: 0 RF: 0 pantoprazole 40 mg Tablet,Delayed Release (Dr/Ec) 40 mg PO BID Qty: 0 RF: 0 insulin lispro [Humalog KwikPen Insulin] 100 unit/mL Insulin Pen See Protocol unit subcut ACHS Qty: 0 RF: 0 Continued atorvastatin 40 mg tablet 40 mg PO QHS RF: 0 carvedilol 12.5 mg tablet 12.5 mg PO BID RF: 0 clopidogrel 75 mg tablet 75 mg PO DAILY RF: 0 spironolactone 25 mg tablet 25 mg PO DAILY RF: 0 Changed furosemide 40 mg tablet 40 mg PO BID Qty: 0 RF: 0 insulin lispro 100 unit/mL insulin pen 20 unit SUBCUT TIDCM Qty: 0 RF: 0 Levemir FlexTouch U-100 Insuln 100 unit/mL (3 mL) insulin pen 70 unit SUBCUT BREAKFAST Qty: 0 RF: 0 Held valsartan 160 mg tablet 160 mg PO DAILY RF: 0 Hold Instructions: Hold for 7 days until creatinine is 2.0. Referrals / Follow Up: Harry Stallings MD [STAFF PHYSICIAN] - Within 1 Month (For CHF) Nabor James MD [Primary Care Provider] - Within 2 Weeks Disposition Disposition (needs filled in before D/C Order can be placed): Residential Facility Charges/Coding Visit Charges Inpatient E&M: 75682 Disch Hosp
--- NOTE | 2022-02-26 16:42 | CASEMGMT ---
EDVIN arranged for patient to get picked up at 6p via van. EDVIN faxed orders and bead picker time to [facility]. EDVIN notified RN, racing secretary, and Atalissa at [facility]. Convalescent was completed on . RN will notify patient. Plan: d/c to [facility] under skilled level of care on a convalescent stay. [facility] transported. Lorraine LEE
[2022-02-26 16:51] LABS: Bedside Glucose 343 mg/dL (74-106)
[2022-02-26] MEDS: Insulin Lispro 100 UNIT/ML INSULN.PEN 20 UNIT SC (16:58)
--- NOTE | 2022-02-26 17:12 | NURSING ---
This RN attempted to call pt's , Yamil, to notify him that patient is being discharged and transferred to [facility]. He did not answer phone. Will attempt to call again later.
--- NOTE | 2022-02-26 17:26 | NURSING ---
This RN called report to [facility] Carlos Wong.
--- NOTE | 2022-02-26 17:29 | NURSING ---
This RN unable to notify pt's of transfer to [facility]. Pt stated that he does not answer the phone all the time. Pt stated that her son is aware of discharge to [facility] today.
--- NOTE | 2022-02-27 16:13 | CASEMGMT ---
RYNE PICHARDO note: E-mail received from Cindy @ [facility], stating that pt declined Palliative services. Clotilde BRASWELL RN CM
== END 2022-02-26 18:00 | disposition skilled nursing facility (03) | DRG 291 ==
LOC: ED 11:15 → PCU 12:28
PROVIDERS: Anesthesiology; Internal Medicine Gastroenterology; Admitting Provider Internal Medicine; Emergency Provider Emergency Medicine; PCP Family Medicine; Visit Provider Internal Medicine
PROC: 0DJ08ZZ Inspection of Upper Intestinal Tract, Via Natural or Artificial Opening Endoscopic (ICD-10-PCS; CPT 43235; principal; 2022-02-23 09:15)
DX: I13.0 Hypertensive heart and chronic kidney disease with heart failure and stage 1 through stage 4 chronic kidney disease, or unspecified chronic kidney disease (principal); N17.0 Acute kidney failure with tubular necrosis; K31.811 Angiodysplasia of stomach and duodenum with bleeding; I50.43 Acute on chronic combined systolic (congestive) and diastolic (congestive) heart failure; Z68.42 Body mass index [BMI] 45.0-49.9, adult; I27.20 Pulmonary hypertension, unspecified; D63.1 Anemia in chronic kidney disease; Z79.4 Long term (current) use of insulin; E66.01 Morbid (severe) obesity due to excess calories; E11.22 Type 2 diabetes mellitus with diabetic chronic kidney disease; N18.32 Chronic kidney disease, stage 3b; E78.5 Hyperlipidemia, unspecified; G47.33 Obstructive sleep apnea (adult) (pediatric); I25.10 Atherosclerotic heart disease of native coronary artery without angina pectoris; M17.0 Bilateral primary osteoarthritis of knee; D50.0 Iron deficiency anemia secondary to blood loss (chronic); R09.02 Hypoxemia; Z95.5 Presence of coronary angioplasty implant and graft; Z79.02 Long term (current) use of antithrombotics/antiplatelets; Z79.899 Other long term (current) drug therapy; Z28.310 Unvaccinated for COVID-19; Z28.9 Immunization not carried out for unspecified reason; Z87.891 Personal history of nicotine dependence
CPT/HCPCS: 36415; 71045; 80048; 80053; 82274; 82962; 83036; 83735; 83880; 84100; 84443; 84484; 85025; 85379; 85610; 86850; 86900; 86901; 86920; 86922; 87040; 87426; 87428; 93005; 93306; 93971; 94002; 94640; 97110; 97116; 97161; 97166; 97530; 97535; 97803; 99251; 99285; J7040; J7120; P9016; Q9957; A4216; C8929; G0463; J1940; J2405

== ENCOUNTER → 2022-03-02 | Outpatient (REF) | payer SELFPAY ==
[2022-03-02 08:57] LABS: Hematocrit 27.9 % (37-47); Hemoglobin 8.2 g/dL (12.0-15.0); Mean Corp Hgb Conc 29.4 g/dL (32-36); Mean Corpuscular Volume 85.1 fL (81-99); Mean Platelet Vol. 10.8 fl (6.2-12.0); Platelet Count 196 K/mm3 (150-450); RBC Distribution Width CV 15.8 % (11.6-14.6); Red Blood Count 3.28 M/mm3 (4.2-5.4); White Blood Count 6.6 K/mm3 (4.4-11.0)
[2022-03-02 10:06] LABS: Anion Gap 6 (5-15); BUN 45 mg/dL (7-18); Calcium,Total 8.5 mg/dL (8.5-10.1); Chloride 103 mmol/L (98-107); EST Glomerular Filtration Rate 29 mL/min (>60); Est Glom Filt Rate - Afr Amer 35 mL/min (>60); Glucose 198 mg/dL (74-106); Potassium 4.5 mmol/L (3.5-5.1); Sodium Level 139 mmol/L (136-145)
== END | disposition home or self-care (01) ==
LOC: OLS.WHLTCC 05:00
PROVIDERS: PCP Family Medicine; Referring Provider Family Medicine; Visit Provider Family Medicine
DX: I50.43 Acute on chronic combined systolic (congestive) and diastolic (congestive) heart failure (principal); N17.9 Acute kidney failure, unspecified; J96.01 Acute respiratory failure with hypoxia; N18.32 Chronic kidney disease, stage 3b; K92.2 Gastrointestinal hemorrhage, unspecified
CPT/HCPCS: 36415; 80048; 85027

== ENCOUNTER → 2022-06-03 | Outpatient (CLI) | payer MEDICARE, SELFPAY ==
[2022-06-03 11:07] LABS: Absolute Lymphocyte Count 1.04 X10^3/uL (0.83-4.51); Absolute Neutrophil Count 6.4 X10^3/uL (2.0-7.7); Basophil# 0.07 X10^3/uL; Basophil% 0.8 % (0-1); Eosinophil# 0.09 X10^3/uL; Eosinophils% 1.1 % (0-5); Hematocrit 31.7 % (37-47); Hemoglobin 9.7 g/dL (12.0-15.0); Lymphocyte # 1.04 X10^3/ul (0.83-4.51); Lymphocyte % 12.6 % (19-41); Mean Corp Hgb Conc 30.6 g/dL (32-36); Mean Corpuscular Volume 81.7 fL (81-99); Mean Platelet Vol. 10.1 fl (6.2-12.0); Monocyte# 0.57 X10^3/uL; Monocyte% 6.9 % (0-10); NRBC Flagged by Analyzer 0 % (0-5); Neutrophil # 6.44 X10^3/uL (2.7-7.7); Neutrophil % 78.2 % (47-70); Platelet Count 231 K/mm3 (150-450); RBC Distribution Width CV 16.7 % (11.6-14.6); RBC Distribution Width SD 49.9 fl (35.1-43.9); Red Blood Count 3.88 M/mm3 (4.2-5.4); White Blood Count 8.2 K/mm3 (4.4-11.0)
[2022-06-03 11:21] LABS: Anion Gap 6 (5-15); BUN 46 mg/dL (7-18); BUN/Creat Ratio 19.4 RATIO (10-20); Chloride 108 mmol/L (98-107); Creatinine, Serum 2.37 mg/dL (0.55-1.02); EST Glomerular Filtration Rate 21 mL/min (>60); Est Glom Filt Rate - Afr Amer 26 mL/min (>60); Glucose 217 mg/dL (74-106); Potassium 5.3 mmol/L (3.5-5.1); Sodium Level 136 mmol/L (136-145)
== END | disposition home or self-care (01) ==
PROVIDERS: PCP Family Medicine; Referring Provider Internal Medicine Cardiovascular Disease; Visit Provider Internal Medicine Cardiovascular Disease
DX: I50.42 Chronic combined systolic (congestive) and diastolic (congestive) heart failure (principal)
CPT/HCPCS: 36415; 80048; 85025

== ENCOUNTER → 2022-06-17 | Outpatient (CLI) | payer MEDICARE, SELFPAY ==
--- NOTE | 2022-06-17 17:27 | STRESSREP ---
Stress Test Report Pharmacologic myocardial perfusion stress test. 72-year-old lady with a history of coronary artery disease with PCI of the LAD and obtuse marginal branch. Stress protocol: Resting EKG demonstrates normal sinus rhythm with a rate of 71 bpm with a left bundle branch block pattern. Resting blood pressure is 142/70 mmHg. 0.4 mg of regadenoson was infused per usual protocol followed by wrap intravenous saline flush injection continuous EKG monitoring was performed. The maximum heart rate was 77 bpm which was 52% of max impacted heart rate the maximum workload was 1 metabolic equivalent. At rest there were no ST or T wave changes noted to suggest abnormal flow reserve and at peak infusion nonspecific ST changes were noted with did not meet the criteria for ischemia. No clinical angina was noted. Myocardial perfusion protocol. 14.7 mCi of technetium 99m sestamibi was injected at rest. 0.4 mg of regadenoson was infused per usual protocol. At peak infusion 44.6 mCi of technetium 99m sestamibi was injected stress images were obtained stress and rest images were reconstructed and compared in the short axis vertical long and horizontal long axis. Gated images were also obtained. Perfusion SPECT analysis: Review of the images demonstrate a mildly dilated cardiac silhouette size. There is a mild medium size defect noted in the mid anterior septal wall and a moderate size defect noted in the basal anterolateral wall. Small defect is also noted in the apex. The resting images demonstrate minimal improvement in the anterolateral and anteroseptal area suggesting mild godfrey-infarct ischemia. The apical defect appears to be fixed. Gated SPECT analysis: The gated ejection fraction is 30%. Conclusion: Ischemic cardiomyopathy. Evidence of previous anteroseptal, apical, and anterolateral infarct with mild godfrey-infarct ischemia
== END | disposition home or self-care (01) ==
LOC: CVS 06:11
PROVIDERS: PCP Family Medicine; Referring Provider Internal Medicine Cardiovascular Disease; Visit Provider Internal Medicine Cardiovascular Disease
DX: I25.10 Atherosclerotic heart disease of native coronary artery without angina pectoris (principal); Z95.5 Presence of coronary angioplasty implant and graft
CPT/HCPCS: 78452; 93017; A9500; A4216; J2785

== ENCOUNTER → 2023-06-17 | Outpatient (CLI) | payer MEDICARE, SELFPAY ==
[2023-06-17 16:31] LABS: Absolute Lymphocyte Count 1.21 X10^3/uL (0.83-4.51); Absolute Neutrophil Count 3.5 X10^3/uL (2.0-7.7); Basophil# 0.06 X10^3/uL; Basophil% 1.1 % (0-1); Eosinophils% 1.8 % (0-5); Hematocrit 32.1 % (37-47); Hemoglobin 9.7 g/dL (12.0-15.0); Lymphocyte # 1.21 X10^3/ul (0.83-4.51); Lymphocyte % 22.1 % (19-41); Mean Corp Hgb Conc 30.2 g/dL (32-36); Mean Corpuscular Hgb 26.2 pg (27.0-32.0); Mean Corpuscular Volume 86.8 fL (81-99); Mean Platelet Vol. 10.6 fl (6.2-12.0); Monocyte# 0.61 X10^3/uL; Monocyte% 11.2 % (0-10); NRBC Flagged by Analyzer 0 % (0-5); Neutrophil # 3.48 X10^3/uL (2.7-7.7); Neutrophil % 63.6 % (47-70); Platelet Count 280 K/mm3 (150-450); RBC Distribution Width CV 15.6 % (11.6-14.6); RBC Distribution Width SD 49.9 fl (35.1-43.9); White Blood Count 5.5 K/mm3 (4.4-11.0)
[2023-06-17 17:07] LABS: BNP,B-Type NATRIURETIC PEPTIDE 281.8 pg/mL (0-100)
[2023-06-17 17:16] LABS: Anion Gap 5 (5-15); BUN 27 mg/dL (7-18); BUN/Creat Ratio 14.5 RATIO (10-20); Chloride 106 mmol/L (98-107); Creatinine, Serum 1.86 mg/dL (0.55-1.02); EST Glomerular Filtration Rate 28 mL/min (>60); Est Glom Filt Rate - Afr Amer 34 mL/min (>60); Glucose 108 mg/dL (74-106); Potassium 4.2 mmol/L (3.5-5.1); Sodium Level 140 mmol/L (136-145); Thyroid Stim Hormone (TSH) 4.15 uIU/mL (0.358-3.74)
== END | disposition home or self-care (01) ==
LOC: LAB 15:57
PROVIDERS: PCP Family Medicine; Referring Provider Nurse Practitioner Gerontology; Visit Provider Nurse Practitioner Gerontology
DX: R06.09 Other forms of dyspnea (principal); I10 Essential (primary) hypertension
CPT/HCPCS: 36415; 80048; 83880; 84443; 85025

== ENCOUNTER → 2023-06-25 | Outpatient (CLI) | payer MEDICARE, SELFPAY ==
[2023-06-25 17:08] LABS: Anion Gap 4 (5-15); BUN 35 mg/dL (7-18); BUN/Creat Ratio 17.5 RATIO (10-20); Chloride 106 mmol/L (98-107); EST Glomerular Filtration Rate 26 mL/min (>60); Est Glom Filt Rate - Afr Amer 31 mL/min (>60); Glucose 119 mg/dL (74-106); Potassium 3.7 mmol/L (3.5-5.1); Sodium Level 139 mmol/L (136-145)
== END | disposition home or self-care (01) ==
LOC: LAB 15:29
PROVIDERS: PCP Family Medicine; Referring Provider Nurse Practitioner Gerontology; Visit Provider Nurse Practitioner Gerontology
DX: I25.5 Ischemic cardiomyopathy (principal); I50.42 Chronic combined systolic (congestive) and diastolic (congestive) heart failure; N18.9 Chronic kidney disease, unspecified
CPT/HCPCS: 36415; 80048

== ENCOUNTER → 2024-02-28 | Outpatient (CLI) | payer MEDICARE, SELFPAY ==
--- NOTE | 2024-02-28 12:49 | ECHOD_ITS ---
Reason For Study: Dilated CMP Procedure This was a 2D Doppler, Color Flow transthoracic echocardiogram. Exam performed in department. Left Ventricle Normal LV size. Mild concentric left ventricular hypertrophy. Stage 1 diastolic dysfunction. The left ventricular ejection fraction is 35 %. Moderately severe segmental systolic dysfunction (see wall motion). There are regional wall motion abnormalities as specified. Posterior-Basal: Akinetic. Mid-Inferior: Akinetic. Infero-Basal: Akinetic. Mid-Posterior: Akinetic. Basal inferoseptal: Hypokinetic. Right Ventricle Normal RV size. Normal systolic function. Atria Normal left atrium. Normal right atrium. Mitral Valve Normal mitral valve. Tricuspid Valve Normal tricuspid valve. Aortic Valve Trisinus/trileaflet aortic valve. Mild focal aortic valve calcification. Pulmonic Valve The pulmonic valve is not well visualized. Great Vessels Normal aortic root. The pulmonary artery is normal size. Normal inferior vena cava. Pericardium/Pleural No pericardial effusion. Medication Patient deferred Definity. She did not want an IV placed. MMode/2D Measurements & Calculations LVIDd: 5.5 cm IVSd: 1.2 cm LVOT diam: 2.2 cm LVIDs: 4.5 cm LVPWd: 1.3 cm RVDd: 3.8 cm FS: 18.6 % LVOT area: 3.8 cm2 Ao root diam: 3.0 cm LAV(MOD-bp): 70.1 ml LA A4 area: 20.7 cm2 LAV(MOD-bp) Indexed: 31.6 ml/m2 LAV(MOD-sp2): 79.3 ml LAV(MOD-sp4): 60.3 ml LA dimension(2D): 4.3 cm TAPSE: 2.2 cm RA A4 area: 17.6 cm2 Time Measurements MV dec time: 0.21 sec Doppler Measurements & Calculations MV E max remberto: 90.6 cm/sec Lat Peak E' Remberto: 3.9 cm/sec Med Peak E' Remberto: 4.3 cm/sec MV A max remberto: 104.4 cm/sec E/E' lat: 23.5 E/E' med: 21.0 MV E/A: 0.87 MV dec slope: 439.5 cm/sec2 Ao V2 max: 160.2 cm/sec LV V1 max: 121.1 cm/sec Ao max P.3 mmHg LV V1 max P.9 mmHg Ao V2 mean: 116.6 cm/sec LV V1 mean P.7 mmHg Ao mean P.2 mmHg LV V1 mean: 91.8 cm/sec Ao V2 VTI: 45.1 cm LV V1 VTI: 32.8 cm AV (velocity ratio): 0.73 KISHA(I,D): 2.8 cm2 KISHA(V,D): 2.9 cm2 SV(LVOT): 124.0 ml PA V2 max: 88.2 cm/sec ECHO/Echo Complete Interpretation Summary Normal LV size. Stage 1 diastolic dysfunction. Mild focal aortic valve calcification. The left ventricular ejection fraction is 35 %. Moderately severe segmental systolic dysfunction (see wall motion). Ordering Physician: Harry Stallings Referring Physician: MD Jacob Nabor Performed By: Radha Healy ALLYSON
== END | disposition home or self-care (01) ==
LOC: CVS 12:47
PROVIDERS: PCP Family Medicine; Referring Provider Internal Medicine Cardiovascular Disease; Visit Provider Internal Medicine Cardiovascular Disease
DX: I50.42 Chronic combined systolic (congestive) and diastolic (congestive) heart failure (principal)
CPT/HCPCS: 93306

== ENCOUNTER 2024-06-22 11:30 | Outpatient (RCR) | payer MEDICARE, SELFPAY ==
[2024-06-01 09:58] VITALS: BP 150/62; PULSE 76; RESP 18; TEMP 36; BMI 42.7
[2024-06-08 11:15] VITALS: BP 144/64; PULSE 64; RESP 18; TEMP 35.6; BMI 42.7
[2024-06-15 11:37] VITALS: BP 151/51; PULSE 73; RESP 18; TEMP 35.7; BMI 42.7
[2024-06-22 11:33] VITALS: BP 147/69; PULSE 76; RESP 18; TEMP 35.5; BMI 42.7
[2024-06-22 13:53] LABS: Absolute Neutrophil Count 5.5 X10^3/uL (2.0-7.7); Basophil# 0.08 X10^3/uL; Basophil% 1.1 % (0-1); Eosinophil# 0.17 X10^3/uL; Eosinophils% 2.3 % (0-5); Hematocrit 32.8 % (37-47); Hemoglobin 9.7 g/dL (12.0-15.0); Lymphocyte % 12.2 % (19-41); Mean Corp Hgb Conc 29.6 g/dL (32-36); Mean Corpuscular Hgb 25.5 pg (27.0-32.0); Mean Corpuscular Volume 86.3 fL (81-99); Mean Platelet Vol. 10.4 fl (6.2-12.0); Monocyte# 0.73 X10^3/uL; Monocyte% 9.9 % (0-10); NRBC Flagged by Analyzer 0 % (0-5); Neutrophil # 5.48 X10^3/uL (2.7-7.7); Neutrophil % 74.2 % (47-70); Platelet Count 247 K/mm3 (150-450); RBC Distribution Width CV 15.2 % (11.6-14.6); RBC Distribution Width SD 47.9 fl (35.1-43.9); White Blood Count 7.4 K/mm3 (4.4-11.0)
[2024-06-22 14:12] LABS: Erythrocyte Sedimentation Rate 38 mm/hr (0-30)
[2024-06-22 14:15] LABS: ALB/GLOB Ratio 0.8 RATIO (0.9-2.4); AST(SGOT) 20 U/L (15-37); Alanine Aminotransfer ALT/SGPT 24 U/L (13-56); Albumin, Serum 3.3 g/dL (3.2-5.0); Alkaline Phosphatase 111 U/L (45-117); Anion Gap 4 (5-15); BUN 42 mg/dL (7-18); BUN/Creat Ratio 25.1 RATIO (10-20); Chloride 111 mmol/L (98-107); Creatinine, Serum 1.67 mg/dL (0.55-1.02); EST Glomerular Filtration Rate 32 mL/min (>60); Est Glom Filt Rate - Afr Amer 38 mL/min (>60); Estimated Creatinine Clearance 37.85 ml/min; Glucose 70 mg/dL (74-106); Potassium 4.2 mmol/L (3.5-5.1); Protein, Total 7.3 g/dL (6.4-8.2); Sodium Level 140 mmol/L (136-145)
[2024-06-22 14:22] LABS: Hemoglobin A1c 6.5 % (3.8-5.6)
[2024-06-24 10:08] LABS: Prealbumin 10 mg/dL (9-32)
== END 2024-06-26 23:59 | disposition home or self-care (01) ==
LOC: WC 11:30
PROVIDERS: PCP Family Medicine; Referring Provider Student in an Organized Health Care Education/Training Program; Visit Provider Student in an Organized Health Care Education/Training Program
DX: E11.621 Type 2 diabetes mellitus with foot ulcer (principal); L97.513 Non-pressure chronic ulcer of other part of right foot with necrosis of muscle; I13.0 Hypertensive heart and chronic kidney disease with heart failure and stage 1 through stage 4 chronic kidney disease, or unspecified chronic kidney disease; I50.42 Chronic combined systolic (congestive) and diastolic (congestive) heart failure; E11.42 Type 2 diabetes mellitus with diabetic polyneuropathy; E11.22 Type 2 diabetes mellitus with diabetic chronic kidney disease; Z79.4 Long term (current) use of insulin; Z79.82 Long term (current) use of aspirin; Z87.891 Personal history of nicotine dependence; I25.5 Ischemic cardiomyopathy; N18.9 Chronic kidney disease, unspecified; Z79.84 Long term (current) use of oral hypoglycemic drugs; I25.10 Atherosclerotic heart disease of native coronary artery without angina pectoris; E78.5 Hyperlipidemia, unspecified; R53.81 Other malaise; L03.115 Cellulitis of right lower limb; Z86.73 Personal history of transient ischemic attack (TIA), and cerebral infarction without residual deficits; Z95.5 Presence of coronary angioplasty implant and graft
CPT/HCPCS: 15275; 71046; 80053; 83036; 84134; 85025; 85652; 86140; 99213; Q4186; G0463

== ENCOUNTER 2024-07-13 12:35 | Inpatient (IN) | payer MEDICARE, SELFPAY ==
[2024-07-13] VITALS (7 sets, daily range): BP systolic 135–184; BP diastolic 63–80; PULSE 77–97; RESP 16–30; TEMP 36.2–36.8; O2SAT 96–100; BMI 44.9; BMI 43.5
[2024-07-13 13:06] LABS: Bedside Glucose 33 mg/dL (74-106)
--- NOTE | 2024-07-13 13:31 | RAD_ITS ---
STUDY: X-RAY - LEFT FOOT CLINICAL: Female, 74 years old. Infection distal lateral. TECHNIQUE: 3 views of the left foot. COMPARISON: None. FINDINGS: Intact talus, calcaneus, and tarsal bones. There are plantar and posterior calcaneal spurs. Normal visualized subtalar and calcaneocuboid articulations. There is mild degenerative arthrosis of the talonavicular and navicular-cuneiform joints. Normal metatarsi. Normal metatarsophalangeal joint of the great toe. Normal tibial and fibular sesamoid bones. Normal interphalangeal joint of the great toe. Normal phalanges of the great toe. Normal second through fifth metatarsophalangeal joints. Normal interphalangeal joints and phalanges of the lesser toes. There is soft tissue swelling around the ankle and along the dorsum of the foot. 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 Plantar and posterior calcaneal spurs. Soft tissue swelling around the ankle and along the dorsum of the foot. Electronically Signed: Dustin Rowley MD at 14:34 EDT ,
--- NOTE | 2024-07-13 13:33 | EX.ED.DYSGE1 ---
HPI History of Present Illness Chief Complaint: General Illness Informant: patient, family and PCP Narrative Narrative: 74-year-old female diabetic has been dealing with diabetic foot infections, followed by her PCP with antibiotics and podiatry, who saw her today and sent her to the ER to be admitted will need surgical debridement not emergently. She states that the wound on the right foot has been present for 2 months, and the 1 on the left foot has been present for 2 or 3 weeks. She does not have pain. She does not have fevers or chills or other systemic symptoms. She was hypoglycemic at wound care today, patient states she did not have any symptoms from it her blood sugar was 33 and she has since eaten some things and gotten her blood sugar up. Family states they have been compliant with dressings, antibiotics which she is still on, and going to wound care and her appointments. [facility] Medical History Dyspnea Ischemic cardiomyopathy History of CVA (cerebrovascular accident) Atherosclerosis of coronary artery without angina pectoris Type 2 diabetes mellitus Secondary pulmonary arterial hypertension Chronic combined systolic and diastolic CHF (congestive heart failure) Essential hypertension Obesity Chronic kidney disease (CKD) GI bleed (01/2022) Anemia Diabetes mellitus type 2 in obese Hyperlipidemia Home Medications ?Medication ?Instructions ?Recorded ?Last Taken ?Type atorvastatin 40 mg tablet 40 mg PO QHS CHOLESTEROL 02/22/22 Unknown History valsartan 160 mg tablet 160 mg PO DAILY BLOOD PRESSURE 02/22/22 Unknown History insulin lispro 100 unit/mL See Protocol subcut ACHS #0 mL 02/26/22 Unknown Rx subcutaneous pen (Humalog KwikPen (U-100) Insulin) aspirin 81 mg tablet,delayed 81 mg PO DAILY HEART HEALTH 06/03/22 Unknown History release (Adult Aspirin Regimen) carvedilol 25 mg tablet 25 mg PO BID HEART #180 tabs 07/12/24 Unknown Rx dapagliflozin propanediol 10 mg 10 mg PO DAILY DIABETES #90 tabs 07/12/24 Unknown Rx tablet (Farxiga) furosemide 40 mg tablet 80 mg PO DAILY EDEMA 07/12/24 Unknown History insulin detemir U-100 100 unit/mL 60 unit subcut BREAKFAST 07/12/24 Unknown History (3 mL) subcutaneous pen (Levemir FlexTouch U-100 Insulin) ciprofloxacin HCl 500 mg tablet 500 mg PO BID ANTIBIOTIC 07/13/24 Unknown History doxycycline hyclate 100 mg tablet 100 mg PO BID ANTIBIOTIC 07/13/24 Unknown History Allergy/AdvReac Type Severity Reaction Status Date / Time No Known Allergies Allergy Verified 07/13/24 12:39 Family History (Reviewed 07/12/24 @ 15:33 by Carmela Funk HOUSEKEEPING [employer]UNDRY WORKER, HOUSEKEEPING LAUNDRY WORKER-C) Father Diabetes Heart disease CAD (coronary artery disease) Mother Heart disease Surgical History History of coronary artery stent placement (09/2013) H/O vein stripping Status post angioplasty with stent Social History household members: family Smoking Status: Former smoker how long ago did patient quit smokin years ago alcohol intake: never substance use type: does not use caffeine: Yes ROS ROS ED Constitutional Constitutional ED: Denies chills or fever(s) Musculoskeletal Musculoskeletal: Reports extremity pain; Denies neck pain Integumentary Reports wounds; Denies Abrasions or rash Neurologic Neurologic: Reports paresthesias RLE (foot) and LLE (foot); Denies weakness EXAM Physical Exam Const Vital Signs: 07/13/24 12:37 07/13/24 13:58 07/13/24 14:35 Temperature 98.2 F Temperature Source Oral Pulse Rate 86 79 Respiratory Rate 16 30 H Respiratory Effort Normal Non-Labored Respiratory Pattern Normal Blood Pressure 135/64 H 184/71 H Blood Pressure Mean 87 108 Pulse Ox 97 100 Oxygen Delivery Method Room Air Room Air Positive well nourished and well developed General Appearance ED: well developed and NAD Neck full ROM and supple Back/Spine normal ROM and normal to inspection Extremity Extremity Narrative: Chronically edematous both lower extremities, symmetric. Blanching erythema both lower legs distally symmetric consistent with chronic stasis dermatitis. Wounds at the plantar lateral forefoot bilaterally, the 1 on the right is deep and ulcerated, the one on the left is more superficial with a little bit of dark tissue on the surface, there is no subcutaneous emphysema tracking or discharge or abscess either one. Neuro oriented x3, no focal motor deficits and no sensory deficits noted Sensorium / Orientation: alert Psych mental status grossly normal and thought process normal Skin no wounds Rashes: no rashes MDM MDM MDM Narrative Medical decision making narrative: Wounds noted, there was delay in getting a wait to give appropriate dosing of vancomycin but that is our intent here prior to admission. She was given some cookies to eat, her chemistries came back showing a blood sugar of 40, but after eating the cookies, I had nurses recheck it and her blood sugar 62 she feels fine, she is getting D10 drip as well as vancomycin, discussed with hospitalist and podiatry. Clinically does not appear septic I think her hypoglycemia is more likely due to having not eaten much today. Bilateral foot x-rays 3 views of each foot on my interpretation show no obvious signs of osteomyelitis at the site of the wounds, and no subcutaneous emphysema to suggest necrotizing fasciitis. Lab Data Attestation: I reviewed the patient's lab results. Labs: Laboratory Results - last 24 hr 07/13/24 07/13/24 07/13/24 12:42 13:40 13:45 WBC 10.8 RBC 3.82 L Hgb 9.3 L Hct 31.3 L MCV 81.9 MCH 24.3 L MCHC 29.7 L RDW Std Deviation 44.3 H RDW Coeff of Bulmaro 14.8 H Plt Count 332 MPV 10.1 Immature Gran % (Auto) 0.500 Neut % (Auto) 78.9 H Lymph % (Auto) 8.9 L Lucas % (Auto) 9.7 Eos % (Auto) 1.4 Baso % (Auto) 0.6 Absolute Neuts (auto) 8.5 H Absolute Lymphs (auto) 0.96 Nucleated RBC % 0 ESR 67 H Sodium 138 Potassium 3.8 Chloride 107 Carbon Dioxide 24.0 Anion Gap 7 BUN 48 H Creatinine 1.85 H Est GFR (MDRD) Af Amer 34 L Est GFR (MDRD) Non-Af 28 L BUN/Creatinine Ratio 25.9 H Glucose 40 L* Calcium 9.3 C-React Prot Ext Range 97.30 H POC Glucose 33 L* 49 L Radiography Diagnostic Testing: Clinical Impression(s) from Imaging Studies Foot X-Ray 07/13/24 13:31 IMPRESSION: 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 Plantar and posterior calcaneal spurs. Soft tissue swelling around the ankle and along the dorsum of the foot. Electronically Signed: Dustin Rowley MD at 14:34 EDT , Foot X-Ray 07/13/24 13:45 IMPRESSION: Mild degenerative arthrosis of the talonavicular, calcaneocuboid, and subtalar joints. Plantar and posterior calcaneal spurs. Soft tissue swelling around the ankle and along the dorsum of the foot. Electronically Signed: Dustin Rowley MD at 14:42 EDT , Management Discussion w/another healthcare provider: Hospitalist and Shipping And Receiving Operator Discharge Plan Triage Chief Complaint: General Illness Other Complaint: Wound ED Provider: Cortez Mantilla Dx/Rx/DC Orders Prescriptions: No Action aspirin [Adult Aspirin Regimen] 81 mg tablet,delayed release (DR/EC) 81 mg PO DAILY furosemide 40 mg tablet 80 mg PO DAILY Levemir FlexTouch U100 Insulin 100 unit/mL (3 mL) insulin pen 60 unit SUBCUT BREAKFAST Patient Comments: INJECT 80 UNITS SUBCUTANEOUSLY ONCE DAILY WITH BREAKFAST carvedilol 25 mg tablet 25 mg PO BID Qty: 180 3RF Rx Instructions: must administer with a meal/food dapagliflozin propanediol [Farxiga] 10 mg tablet 10 mg PO DAILY Qty: 90 3RF atorvastatin 40 mg tablet 40 mg PO QHS valsartan 160 mg tablet 160 mg PO DAILY insulin lispro [Humalog KwikPen Insulin] 100 unit/mL Insulin Pen See Protocol subcut ACHS Qty: 0 0RF Protocol: 1. Sliding Scale Insulin Low Dosing Condition: 150-224 mg/dl = 1 unit Condition: 225-299 mg/dl = 2 units Condition: 300-374 mg/dl = 3 units Condition: 375-499 mg/dl = 4 units Condition: Greater than 449 call physician Protocol Text: - Use for Total Daily Dose of Insulin 15-27 units - Thin, elderly, renal patients LOW DOSING ALGORITHM ciprofloxacin HCl 500 mg tablet 500 mg PO BID Rx Instructions: TAKE ONE TABLET BY MOUTH TWICE DAILY FOR 14 DAYS START DATE: END DATE: doxycycline hyclate 100 mg tablet 100 mg PO BID Rx Instructions: TAKE ONE TABLET BY MOUTH TWICE DAILY FOR 14 DAYS START DATE: END DATE: Primary Care Provider: Nabor James Print Language: Turkish
--- NOTE | 2024-07-13 13:45 | RAD_ITS ---
STUDY: X-RAY - RIGHT FOOT CLINICAL: Female, 74 years old. Infection. TECHNIQUE: 3 views of the right foot. COMPARISON: None. FINDINGS: Intact talus, calcaneus, and tarsal bones. There are plantar and posterior calcaneal spurs. There is mild degenerative arthrosis of the talonavicular, calcaneocuboid, and subtalar joints. Normal metatarsi. Normal metatarsophalangeal joint of the great toe. Normal tibial and fibular sesamoid bones. Normal interphalangeal joint of the great toe. Normal phalanges of the great toe. Normal second through fifth metatarsophalangeal joints. Normal interphalangeal joints and phalanges of the lesser toes. There is soft tissue swelling around the ankle and along the dorsum of the foot. RAD/Foot min 3 Views IMPRESSION: Mild degenerative arthrosis of the talonavicular, calcaneocuboid, and subtalar joints. Plantar and posterior calcaneal spurs. Soft tissue swelling around the ankle and along the dorsum of the foot. Electronically Signed: Dustin Rowley MD at 14:42 EDT ,
[2024-07-13 13:56] LABS: Absolute Lymphocyte Count 0.96 X10^3/uL (0.83-4.51); Absolute Neutrophil Count 8.5 X10^3/uL (2.0-7.7); Basophil# 0.07 X10^3/uL; Basophil% 0.6 % (0-1); Eosinophil# 0.15 X10^3/uL; Eosinophils% 1.4 % (0-5); Hematocrit 31.3 % (37-47); Hemoglobin 9.3 g/dL (12.0-15.0); Lymphocyte # 0.96 X10^3/ul (0.83-4.51); Lymphocyte % 8.9 % (19-41); Mean Corp Hgb Conc 29.7 g/dL (32-36); Mean Corpuscular Hgb 24.3 pg (27.0-32.0); Mean Corpuscular Volume 81.9 fL (81-99); Mean Platelet Vol. 10.1 fl (6.2-12.0); Monocyte# 1.04 X10^3/uL; Monocyte% 9.7 % (0-10); NRBC Flagged by Analyzer 0 % (0-5); Neutrophil % 78.9 % (47-70); Platelet Count 332 K/mm3 (150-450); RBC Distribution Width CV 14.8 % (11.6-14.6); RBC Distribution Width SD 44.3 fl (35.1-43.9); Red Blood Count 3.82 M/mm3 (4.2-5.4); White Blood Count 10.8 K/mm3 (4.4-11.0)
[2024-07-13 13:58] LABS: Bedside Glucose 49 mg/dL (74-106)
[2024-07-13 14:05] LABS: Erythrocyte Sedimentation Rate 67 mm/hr (0-30)
--- OUTSIDE RECORDS SUMMARY | 2024-07-13 14:25 | XMS RPT_ITS | CCD ---
Author Organization [facility] Care Team Providers Care Manager Books Name Role Phone Amado Lopes MD Primary Care Provider AMADO LOPES Attending Unavailable AMADO LOPES Primary Care Unavailable AMADO LOPES Primary Care Unavailable AMADO LOPES Referring Unavailable AMADO LOPES Primary Care Unavailable AMADO LOPES Attending Unavailable AMADO LOPES Primary Care Unavailable AMADO LOPES Referring Unavailable Allergies Allergy Classification Reported Allergen(s) Allergy Type Date of Onset Reaction(s) Facility (3 sources) Angiotensin-conv erting enzyme inhibitor agent; Translations: [DIANA INHIBITORS] Propensity to adverse reactions 07-17-2005 [facility] Work Phone: (20 sources) Neomycin; Translations: [NEOMYCIN] Drug Allergy 07-17-2005 [facility] Work Phone: (20 sources) Angiotensin-conv erting enzyme inhibitor agent Propensity to adverse reactions 07-17-2005 [facility] Work Phone: Medications Current Medications Medication Drug Class(es) Dates Sig (Normalized) Sig (Original) amoxicillin 875 mg / clavulanate 125 mg oral tablet (1 source) Penicillin-class Antibacterial Start: 05-06-2024 End: 05-16-2024 take 1 tablet by mouth twice daily amoxicillin-clavula ken potassium (AUGMENTIN) 875-125 mg per tablet Indications: Diabetic ulcer of right midfoot associated with type 2 diabetes mellitus, unspecified ulcer stage (HCC) Take 1 tablet by mouth two times a day for 10 days. 20 tablet 0 05/06/2024 05/16/2024 Active aspirin 81 mg oral tablet (20 sources) Platelet Aggregation Inhibitor, Nonsteroidal Anti-inflammatory Drug Aspirin 81 mg Tab Take 81 mg by mouth. Active Comment on above: Take 81 mg by mouth. atorvastatin 40 mg oral tablet (20 sources) HMG-CoA Reductase Inhibitor Start: 09-02-2023 take 1 tablet by mouth once daily at bedtime for hyperlipidemia atorvastatin (LIPITOR) 40 mg tablet Indications: Hyperlipidemia, unspecified hyperlipidemia type Take 1 tablet by mouth daily at bedtime. For cholesterol. 90 tablet 3 09/02/2023 Active Start: 06-11-2021 End: 07-13-2022 take 1 tablet by mouth once daily at bedtime for hyperlipidemia atorvastatin (LIPITOR) 40 mg tablet Indications: Hyperlipidemia, unspecified hyperlipidemia type Take 1 tablet by mouth daily at bedtime. For cholesterol. 90 tablet 3 07/13/2022 Active Comment on above: Take 1 tablet by carlo th daily at bedtime. For cholesterol. betamethasone 0.5 mg/ml / clotrimazole 10 mg/ml topical cream (8 sources) Azole Antifungal, Corticosteroid Start: 024 clotrimazole-betame thasone (LOTRISONE) cream Indications: Other depression Apply to affected area two times a day. 45 g 1 04/10/2024 Active Blood Sugar Diagnostic, Drum (ACCU-CHEK COMPACT TEST) strp (20 sources) Start: 019 Blood Sugar Diagnostic, Drum (ACCU-CHEK COMPACT TEST) strp Indications: Controlled type 2 diabetes mellitus without complication (HCC) Test blood sugar(s) 3 times daily. Dx:E11.9 . Insulin: Yes 300 Strip 3 07/07/2019 Active Comment on above: Test blood sugar(s) 3 times daily. Dx:E11.9 . Insulin: Yes Blood-Glucose Meter misc (20 sources) Start: 020 Blood-Glucose Meter misc Indications: Controlled type 2 diabetes mellitus without complication, without long-term current use of insulin (HCC) 1 Each once daily. 1 Each 2 11/08/2019 Active Comment on above: 1 Each once daily. Blood-Glucose Meter, Drum-type (ACCU-CHEK COMPACT PLUS CARE) kit (20 sources) Start: 014 Blood-Glucose Meter, Drum-type (ACCU-CHEK COMPACT PLUS CARE) kit Indications: Type II or unspecified type diabetes mellitus without mention of complication, not stated as uncontrolled Use as directed 1 Kit 0 11/15/2013 Active Comment on above: Use as directed carvedilol 12.5 mg oral tablet (20 sources) alpha-Adrenergic Herb, beta-Adrenergic Herb Start: End: take 1 tablet by mouth twice daily carvedilol (COREG) 12.5 mg tablet Indications: Essential hypertension, benign Take 1 tablet by mouth two times a day. 180 tablet 3 02/22/2024 Active Comment on above: Take 1 tablet by carlo th twice daily. cephalexin 500 mg oral capsule (2 sources) Cephalosporin Antibacterial Start: End: take 1 capsule by mouth four times daily cephALEXin (KEFLEX) 500 mg capsule Indications: Other depression Take 1 capsule by mouth four times daily for 10 days. 40 capsule 0 04/10/2024 04/20/2024 Active cholecalciferol 0.025 mg oral capsule (20 sources) Vitamin D Start: take 1 capsule by mouth once daily Cholecalciferol, Vitamin D3, 1,000 unit cap Take 1 capsule by mouth once daily. 90 capsule 3 04/04/2018 Active Comment on above: Take 1 capsule by mo [facility] once daily. clopidogrel 75 mg oral tablet (20 sources) P2Y12 Platelet Inhibitor Start: End: take 1 tablet by mouth once daily clopidogrel (PLAVIX) 75 mg tablet Indications: Cerebral infarction, unspecified mechanism (HCC) Take 1 tablet by mouth once daily. 90 tablet 3 12/14/2022 Active Comment on above: Take 1 tablet by carlo once daily. dapagliflozin 10 mg oral tablet (20 sources) Sodium-Glucose Cotransporter 2 Inhibitor Start: End: take 1 tablet by mouth once daily at breakfast dapagliflozin propanediol (FARXIGA) 10 mg tablet Take 1 tablet by mouth daily with breakfast. 90 tablet 3 04/10/2024 Active Comment on above: Take 1 tablet by carlo th daily with breakfast. FLUoxetine 10 mg oral capsule (8 sources) Serotonin Reuptake Inhibitor Start: take 1 capsule by mouth once daily FLUoxetine (PROZAC) 10 mg capsule Indications: Other depression Take 1 capsule by mouth once daily. 30 capsule 11 04/10/2024 Active furosemide 40 mg oral tablet (20 sources) Loop Diuretic Start: take 2 tablets by mouth once daily furosemide (LASIX) 40 mg tablet Indications: Bilateral leg edema Take 2 tablets by mouth once daily. 180 tablet 3 04/10/2024 Active Start: 11-16-2022 End: 04-10-2024 take 1 tablet by mouth once daily furosemide (LASIX) 40 mg tablet Indications: Bilateral leg edema Take 1 tablet by mouth once daily. 90 tablet 3 12/02/2023 04/10/2024 Discontinued Start: 11-13-2021 take 1 tablet by carlo th once daily furosemide (LASIX) 40 mg tablet Indications: Bilateral leg edema Take 1 tablet by mouth once daily. 90 tablet 3 11/13/2021 Active Comment on above: Take 1 tablet by carlo th once daily. 3 ml insulin detemir 100 unt/ml pen injector (20 sources) Insulin Analog Start: 04-20-2023 End: 01-20-2024 inject 70 [IU] by subcutaneous injection once daily at breakfast insulin detemir U-100 (LEVEMIR) 100 unit/mL (3 mL) injection pen Indications: Controlled type 2 diabetes mellitus without complication, with long-term current use of insulin ([facility]) Inject 70 Units subcutaneously daily with breakfast. 30 mL 5 01/20/2024 Active Start: 04-19-2023 End: 01-13-2024 inject 70 [IU] by subcutaneous injection once daily in the morning insulin detemir U-100 (LEVEMIR U-100 INSULIN) 100 unit/mL injection Indications: Type 2 diabetes mellitus with stage 3b chronic kidney disease, without long-term current use of insulin (HCC) Inject 70 Units subcutaneously every morning. 10 mL 5 01/13/2024 Active Start: 11-03-2022 inject 70 [IU] by dobbs bcutaneous injection once daily in the morning insulin detemir U-100 (LEVEMIR U-100 INSULIN) 100 unit/mL injection Indications: Type 2 diabetes mellitus with stage 3b chronic kidney disease, without long-term current use of insulin (HCC) Inject 70 Units subcutaneously every morning. 10 mL 5 11/03/2022 Active Start: 03-18-2022 End: 04-15-2023 inject 70 [IU] by subcutaneous injection once daily at breakfast insulin detemir U-100 (LEVEMIR) 100 unit/mL (3 mL) injection pen Indications: Controlled type 2 diabetes mellitus without complication, with long-term current use of insulin ([facility]) Inject 70 Units subcutaneously daily with breakfast. 30 Each 5 07/13/2022 04/15/2023 Discontinued Start: 11-13-2021 inject 80 [IU] by dobbs bcutaneous injection once daily at breakfast insulin detemir U-100 (LEVEMIR) 100 unit/mL (3 mL) injection pen Indications: Controlled type 2 diabetes mellitus without complication, with long-term current use of insulin ([facility]) Inject 80 Units subcutaneously daily with breakfast. 30 Pen 5 11/13/2021 Active Comment on above: Inject 80 Units subc utaneously daily with breakfast. Inject 70 Units subc utaneously daily with breakfast. Inject 70 Units subc utaneously every morning. 3 ml insulin lispro 100 unt/ml pen injector (20 sources) Insulin Analog Start: 06-16-2023 End: 06-06-2024 insulin lispro (HUMALOG KWIKPEN INSULIN) 100 unit/mL Indications: Type 2 diabetes mellitus with stage 3b chronic kidney disease, without long-term current use of insulin (HCC) , Controlled type 2 diabetes mellitus without complication, with long-term current use of insulin ([facility]) INJECT 25 UNITS SUBCUTANEOUSLY THREE TIMES DAILY WITH MEALS DIRECTED 30 Each 3 06/06/2024 Active Start: 01-12-2023 insulin lispro (HUMALOG KWIKPEN INSULIN) 100 unit/mL Indications: Type 2 diabetes mellitus with stage 3b chronic kidney disease, without long-term current use of insulin (HCC) , Controlled type 2 diabetes mellitus without complication, with long-term current use of insulin ([facility]) INJECT 25 UNITS SUBCUTANEOUSLY THREE TIMES DAILY WITH MEALS DIRECTED 30 Each 3 01/12/2023 Active Start: 03-18-2022 End: 07-15-2022 insulin lispro (HUMALOG KWIK PEN INSULIN) 100 unit/mL Indications: Controlled type 2 diabetes mellitus without complication, with long-term current use of insulin (HCC) INJECT 20 UNITS SUBCUTANEOUSLY THREE TIMES DAILY WITH MEALS DIRECTED 30 Each 3 07/15/2022 Active Start: 05-29-2021 insulin lispro (HUMALOG KWIKPEN INSULIN) 100 unit/mL Indications: Controlled type 2 diabetes mellitus without complication, with long-term current use of insulin (HCC) INJECT 30 UNITS SUBCUTANEOUSLY THREE TIMES DAILY WITH MEALS DIRECTED 30 Pen 3 05/29/2021 Active Comment on above: INJECT 30 UNITS SUBC UTANEOUSLY THREE TIMES DAILY WITH MEALS DIRECTED INJECT 20 UNITS SUBC UTANEOUSLY THREE TIMES DAILY WITH MEALS DIRECTED INJECT 25 UNITS SUBC UTANEOUSLY THREE TIMES DAILY WITH MEALS DIRECTED Insulin Turkey, Disposable, (RELION PEN NEEDLES) 32 x 5/32 ndle (20 sources) Start: 02-28-20 15 Insulin Turkey, Disposable, (RELION PEN NEEDLES) 32 x 5/32 ndle Use as directed with insulin pen. 250.00. 4 injections/day. On insulin. 150 Each 11 02/27/2015 Active Comment on above: Use as directed with insulin pen. 250.00. 4 injections/day. On insulin. loratadine 10 mg oral tablet (20 sources) Start: 06-03-20 18 take 1 tablet by mouth once daily loratadine (CLARITIN) 10 mg tablet Indications: Allergic rhinitis, unspecified seasonality, unspecified trigger Take 1 tablet by mouth once daily. 06/03/2018 Active Comment on above: Take 1 tablet by carlo th once daily. valsartan 160 mg oral tablet (20 sources) Angiotensin 2 Receptor Herb Start: 11-13-19 End: 12-02-19 24 take 1 tablet by mouth once daily valsartan (DIOVAN) 160 mg tablet Indications: Essential hypertension, benign Take 1 tablet by mouth once daily. 90 tablet 3 12/02/2023 Active Comment on above: Take 1 tablet by carlo th once daily. vitamin b12 1 mg oral tablet (20 sources) Vitamin B12 Start: 10-10-19 14 take 1 tablet by mouth once daily cyanocobalamin (VITAMIN B-12) 1,000 mcg tab Take 1 tablet by mouth once daily. 0 10/10/2013 Active Comment on above: Take 1 tablet by carlo th once daily. Completed/Discontinued Medications Medication Drug Class(es) Dates Sig (Normalized) Sig (Original) pantoprazole 40 mg delayed release oral tablet (20 sources) Proton Pump Inhibitor Start: 04-07-2022 End: 04-10-2024 take 1 tablet by mouth once daily pantoprazole DR (PROTONIX) 40 mg tablet Take 1 tablet by mouth once daily. 90 tablet 3 04/07/2022 04/10/2024 Discontinued Start: 03-05-2022 End: 04-07-2022 take 1 tablet by mouth twice daily pantoprazole DR (PROTONIX) 40 mg tablet Take 40 mg by mouth twice daily. 0 03/05/2022 04/07/2022 Discontinued Comment on above: Take 1 tablet by carlo th once daily. Take 40 mg by mouth twice daily. spironolactone 25 mg oral tablet (13 sources) Aldosterone Antagonist Start: 05-29-20 End: 04-15-20 23 take 1 tablet by mouth once daily spironolactone (ALDACTONE) 25 mg tablet Indications: Essential hypertension, benign , Bilateral leg edema , SOB (shortness of breath) , Fluid retention Take 1 tablet by mouth once daily. 90 tablet 3 05/29/2021 04/15/2023 Discontinued Comment on above: Take 1 tablet by carlo th once daily. Problems Active Problems Problem Classification Problem Date Documented Da te Episodic/Chronic Acute cerebrovascular disease (1 source) Cerebral infarction; Translations: [Cerebral infarction, unspecified] Chronic Chronic kidney disease (20 sources) Chronic kidney disease stage 3B ; Translations: [Stage 3b chronic kidney disease] Onset: 2 Resolved: 4 09-30-2021 Chronic Congestive heart failure; nonhypertensive (20 sources) Congestive heart failure; Translations: [Heart failure, unspecified] Onset: 3 Chronic Deficiency and other anemia (15 sources) Anemia co-occurrent and due to chronic kidney disease stage 3; Translations: [Anemia due to stage 3b chronic kidney disease] Onset: 2 09-30-2021 Chronic Diabetes mellitus with complications (20 sources) Type 2 diabetes mellitus; Translations: [Type 2 diabetes mellitus with diabetic chronic kidney disease] Onset: 6 03-06-2022 Chronic Diabetes mellitus without complication (8 sources) Type 2 diabetes mellitus without complication; Translations: [Type 2 diabetes mellitus without complications] Chronic Diabetes mellitus without complication (1 source) Diabetes mellitus without complication; Translations: [Type 2 diabetes mellitus with stage 3b chronic kidney disease, without long-term current use of insulin (HCC)] Onset: 4 Disorders of lipid metabolism (20 sources) Hyperlipidemia; Translations: [Hyperlipidemia, unspecified] Onset: 5 08-07-2015 Chronic Essential hypertension (20 sources) Benign essential hypertension; Translations: [Essential (primary) hypertension] Onset: 5 07-17-2005 Chronic Hypertension with complications and secondary hypertension (16 sources) Hypertensive heart failure; Translations: [Hypertensive heart and chronic kidney disease with heart failure and stage 1 through stage 4 chronic kidney disease, or unspecified chronic kidney disease] Onset: 3 10-15-2023 Chronic Mood disorders (1 source) Depressive disorder; Translations: [Other specified depressive episodes] 04-10-2024 Chronic Nonmalignant breast conditions (20 sources) Fibrocystic disease of breast; Translations: [Diffuse cystic mastopathy of unspecified breast] Onset: 5 07-17-2005 Chronic Osteoarthritis (20 sources) Osteoarthritis; Translations: [Unspecified osteoarthritis, unspecified site] Onset: 5 07-17-2005 Chronic Other gastrointestinal disorders (3 sources) History of gastrointestinal bleed; Translations: [Personal history of other diseases of the digestive system] Episodic Other lower respiratory disease (2 sources) Dyspnea; Translations: [Shortness of breath] Episodic Other nutritional; endocrine; and metabolic disorders (20 sources) Body mass index 40+ - severely obese; Translations: [Morbid (severe) obesity due to excess calories] Onset: 8 05-27-2021 Chronic Other skin disorders (1 source) Skin lesion; Translations: [Disorder of the skin and subcutaneous tissue, unspecified] 04-15-2023 Episodic Other upper respiratory disease (20 sources) Allergic rhinitis; Translations: [Allergic rhinitis, unspecified] Onset: 5 06-03-2018 Chronic Residual codes; unclassified (5 sources) Bilateral lower limb edema; Translations: [Localized edema] Episodic Skin and subcutaneous tissue infections (1 source) Cellulitis of skin; Translations: [Cellulitis, unspecified] 04-10-2024 Episodic Past or Other Problems Problem Classification Problem Date Documented Da te Episodic/Chronic Deficiency and other anemia (20 sources) Anemia; Translations: [Anemia, unspecified] Onset: 09-30-2021 Episodic Deficiency and other anemia (1 source) Anemia, unspecified; Translations: [Anemia, unspecified type] Onset: 10-15-2023 Episodic Other aftercare (16 sources) Long-term current use of insulin; Translations: [USP (current) use of insulin] Onset: 10-15-2023 10-15-2023 Episodic Other circulatory disease (20 sources) History of cerebrovascular disease; Translations: [Personal history of transient ischemic attack (TIA), and cerebral infarction without residual deficits] Onset: 11-15-2013 08-21-2020 Episodic Other gastrointestinal disorders (1 source) Personal history of other diseases of the digestive system; Translations: [H/O: GI bleed] Onset: 10-09-2023 Episodic Other screening for suspected conditions (not mental disorders or infectious disease) (4 sources) Patient encounter status; Translations: [Encounter for screening mammogram for malignant neoplasm of breast] Onset: 10-09-2023 Episodic Results Test Name Value Interpretation Reference Range Facil itemily RENEENancie 06-16-2024 CNPN Telephone ([facility]) ROSA MYERS ([id number]) 1950 F Date Time Provider Department 06/16/24 AMADO LOPES [facility] During your visit today, we recorded the following information about you: Sanaz Lucas RN 06/16/2024 11:39 AM Signed Patricia [facility] called in and wanted Pts last OV note faxed over. She states the only diagnosis they have is foot ulcer, and she wanted more diagnoses to put down. Faxed last OV note to fax # [phone]. Allergies As of Date: 06/16/2024 Noted Allergy Reaction DIANA INHIBITORS 07/17/2005 NEOMYCIN 07/17/2005 Date Reviewed: 05/06/2024 Reviewed by: Mariza Graham MA - Fully Assessed Reason for Visit: Fax Last OV Note [Other] Prescriptions as of 06/16/2024 - insulin lispro (HUMALOG KWIKPEN INSULIN) 100 unit/mL INJECT 25 UNITS SUBCUTANEOUSLY THREE TIMES DAILY WITH MEALS DIRECTED - dapagliflozin propanediol (FARXIGA) 10 mg tablet Take 1 tablet by mouth daily with breakfast. - clotrimazole-betametha sone (LOTRISONE) cream Apply to affected area two times a day. - furosemide (LASIX) 40 mg tablet Take 2 tablets by mouth once daily. - FLUoxetine (PROZAC) 10 mg capsule Take 1 capsule by mouth once daily. - carvedilol (COREG) 12.5 mg tablet Take 1 tablet by mouth two times a day. - insulin detemir U-100 (LEVEMIR) 100 unit/mL (3 mL) injection pen Inject 70 Units subcutaneously daily with breakfast. - insulin detemir U-100 (LEVEMIR U-100 INSULIN) 100 unit/mL injection Inject 70 Units subcutaneously every morning. - valsartan (DIOVAN) 160 mg tablet Take 1 tablet by mouth once daily. - atorvastatin (LIPITOR) 40 mg tablet Take 1 tablet by mouth daily at bedtime. For cholesterol. - blood sugar diagnostic (BLOOD GLUCOSE TEST) test strip Alvina test strips. Test blood sugars once daily as directed. Dx: E11.9. Insulin: Yes - clopidogrel (PLAVIX) 75 mg tablet Take 1 tablet by mouth once daily. - Insulin Syringe-Needle U-100 1 mL 29 gauge x 1/2 1 Each once daily. USE ONE SYRINGE FOR EACH INSULIN DOSE/ 1 PER DAY - insulin needles, DISPOSABLE, (PEN NEEDLE) 31 gauge x 5/16 Use 4 times daily to inject insulin - blood sugar diagnostic (BLOOD GLUCOSE TEST) test strip Test blood sugar(s) 3 times daily. Dx: 250.02. Insulin: Yes - Blood-Glucose Meter misc 1 Each once daily. - Blood Sugar Diagnostic, Drum (ACCU-CHEK COMPACT TEST) strp Test blood sugar(s) 3 times daily. Dx:E11.9 . Insulin: Yes - loratadine (CLARITIN) 10 mg tablet Take 1 tablet by mouth once daily. - Cholecalciferol, Vitamin D3, 1,000 unit cap Take 1 capsule by mouth once daily. - Insulin Turkey, Disposable, (RELION PEN NEEDLES) 32 x 5/32 ndle Use as directed with insulin pen. 250.00. 4 injections/day. On insulin. - Blood-Glucose Meter, Drum-type (ACCU-CHEK COMPACT PLUS CARE) kit Use as directed - cyanocobalamin (VITAMIN B-12) 1,000 mcg tab Take 1 tablet by mouth once daily. - Aspirin 81 mg Tab Take 81 mg by mouth. Meds Comments as of 01/12/2023: Taking OTC Iron tablet once daily. 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) [Z79.4] 10/15/2023 Heart failure, unspecified (HCC) [I50.9] 04/15/2023 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*04/15/2023 Encounter Status:Closed by SANAZ LUCAS on 06/16/24 [facility] [place] [facility] ROSA MY[facility] ([id number]) 1950 F Date Time Provider Department 06/02/24 AMADO LOPES [facility] During your visit today, we recorded the following information about you: Aga Mckeon, RYNE 06/02/2024 2:35 PM Signed Julieth with [facility] calling and requesting most recent office visit for patient be faxed to them at [phone] for continuity of care for Home Health Nursing services. Faxed as requested. Aga Mckeon RN Allergies As of Date: 06/02/2024 Noted Allergy Reaction DIANA INHIBITORS 07/17/2005 NEOMYCIN 07/17/2005 Date Reviewed: 05/06/2024 Reviewed by: Mariza Graham MA - Fully Assessed Reason for Visit: Fax Request [Other] Prescriptions as of 06/02/2024 - dapagliflozin propanediol (FARXIGA) 10 mg tablet Take 1 tablet by mouth daily with breakfast. - clotrimazole-betametha sone (LOTRISONE) cream Apply to affected area two times a day. - furosemide (LASIX) 40 mg tablet Take 2 tablets by mouth once daily. - FLUoxetine (PROZAC) 10 mg capsule Take 1 capsule by mouth once daily. - carvedilol (COREG) 12.5 mg tablet Take 1 tablet by mouth two times a day. - insulin detemir U-100 (LEVEMIR) 100 unit/mL (3 mL) injection pen Inject 70 Units subcutaneously daily with breakfast. - insulin detemir U-100 (LEVEMIR U-100 INSULIN) 100 unit/mL injection Inject 70 Units subcutaneously every morning. - valsartan (DIOVAN) 160 mg tablet Take 1 tablet by mouth once daily. - insulin lispro (HUMALOG KWIKPEN INSULIN) 100 unit/mL INJECT 25 UNITS SUBCUTANEOUSLY THREE TIMES DAILY WITH MEALS DIRECTED - atorvastatin (LIPITOR) 40 mg tablet Take 1 tablet by mouth daily at bedtime. For cholesterol. - blood sugar diagnostic (BLOOD GLUCOSE TEST) test strip Alvina test strips. Test blood sugars once daily as directed. Dx: E11.9. Insulin: Yes - clopidogrel (PLAVIX) 75 mg tablet Take 1 tablet by mouth once daily. - Insulin Syringe-Needle U-100 1 mL 29 gauge x 1/2 1 Each once daily. USE ONE SYRINGE FOR EACH INSULIN DOSE/ 1 PER DAY - insulin needles, DISPOSABLE, (PEN NEEDLE) 31 gauge x 5/16 Use 4 times daily to inject insulin - blood sugar diagnostic (BLOOD GLUCOSE TEST) test strip Test blood sugar(s) 3 times daily. Dx: 250.02. Insulin: Yes - Blood-Glucose Meter misc 1 Each once daily. - Blood Sugar Diagnostic, Drum (ACCU-CHEK COMPACT TEST) strp Test blood sugar(s) 3 times daily. Dx:E11.9 . Insulin: Yes - loratadine (CLARITIN) 10 mg tablet Take 1 tablet by mouth once daily. - Cholecalciferol, Vitamin D3, 1,000 unit cap Take 1 capsule by mouth once daily. - Insulin [place], Disposable, (RELION PEN NEEDLES) 32 x 5/32 ndle Use as directed with insulin pen. 250.00. 4 injections/day. On insulin. - Blood-Glucose Meter, Drum-type (ACCU-CHEK COMPACT PLUS CARE) kit Use as directed - cyanocobalamin (VITAMIN B-12) 1,000 mcg tab Take 1 tablet by mouth once daily. - Aspirin 81 mg Tab Take 81 mg by mouth. Meds Comments as of 01/12/2023: Taking OTC Iron tablet once daily. Problem List As Of Date 06/02/2024 Noted Resolved BENIGN HYPERTENSION [I10] 07/17/2005 Hyperlipidemia [E78.5] 07/17/2005 OSTEOARTHROS NOS-UNSPEC [M19.90] 07/17/2005 Allergic rhinitis [J30.9] 07/17/2005 DIFFUS CYSTIC MASTOPATHY [N60.19] 07/17/2005 Type 2 diabetes mellitus with diabetic chronic *04/15/2023 Personal history of transient ischemic attack (*11/15/2013 Morbid obesity with body mass index of 40.0-44.*02/09/2018 Stage 3b chronic kidney disease (HCC) [N18.32] 09/30/2021 10/15/2023 Anemia, unspecified [D64.9] 09/30/2021 Chronic kidney disease, stage 4 (severe) (HCC) *04/15/2023 USP current use of insulin (HCC) [Z79.4] 10/15/2023 Heart failure, unspecified (HCC) [I50.9] 04/15/2023 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*04/15/2023 Encounter Status:Closed by AGA MCKEON on 06/02/24 [facility] [place] 05-06-2024 CNOV Office Visit (FAMPWS ) ROSA MYERS ([id number]) 1950 F Date Time Provider Department 05/06/24 8:40 AM AMADO LOPES During your visit today, we recorded the following information about you: Pulse Respiration Blood pressure Weight 68/minute 16/minute 97/64 119 kg Amado Lopes MD 05/06/2024 11:42 AM Signed Chief Complaint Patient presents with: Wound Evaluation: Bottom of right foot x 1 week HPI Rosa Myers is a 74 year old female who presents here today for wound. Pt has wound to Bottom of right foot x 1 week just under the toe. is changing the dress about once daily to every other day. Has some drainage. Doesn't seem to be getting any better, getting bigger. Pain with pressure. Walking, standing. No injury that she is aware of. Right lower leg redness. Edema: taurus legs, no improvement since increasing Lasix to 80 mg daily. Does not improve over night or with elevation. Past medical history, appointments, medications, allergies reviewed. 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 clotrimazole-betametha sone (LOTRISONE) cream Apply to affected area two times a day. furosemide (LASIX) 40 mg tablet Take 2 tablets by mouth once daily. FLUoxetine (PROZAC) 10 mg capsule Take 1 capsule by mouth once daily. carvedilol (COREG) 12.5 mg tablet Take 1 tablet by mouth two times a day. insulin detemir U-100 (LEVEMIR) 100 unit/mL (3 mL) injection pen Inject 70 Units subcutaneously daily with breakfast. insulin detemir U-100 (LEVEMIR U-100 INSULIN) 100 unit/mL injection Inject 70 Units subcutaneously every morning. valsartan (DIOVAN) 160 mg tablet Take 1 tablet by mouth once daily. insulin lispro (HUMALOG KWIKPEN INSULIN) 100 unit/mL INJECT 25 UNITS SUBCUTANEOUSLY THREE TIMES DAILY WITH MEALS DIRECTED atorvastatin (LIPITOR) 40 mg tablet Take 1 tablet by mouth daily at bedtime. For cholesterol. blood sugar diagnostic (BLOOD GLUCOSE TEST) test strip Alvina test strips. Test blood sugars once daily as directed. Dx: E11.9. Insulin: Yes clopidogrel (PLAVIX) 75 mg tablet Take 1 tablet by mouth once daily. Insulin Syringe-Needle U-100 1 mL 29 gauge x 1/2 1 Each once daily. USE ONE SYRINGE FOR EACH INSULIN DOSE/ 1 PER DAY insulin needles, DISPOSABLE, (PEN NEEDLE) 31 gauge x 5/16 Use 4 times daily to inject insulin blood sugar diagnostic (BLOOD GLUCOSE TEST) test strip Test blood sugar(s) 3 times daily. Dx: 250.02. Insulin: Yes Blood-Glucose Meter misc 1 Each once daily. Blood Sugar Diagnostic, Drum (ACCU-CHEK COMPACT TEST) strp Test blood sugar(s) 3 times daily. Dx:E11.9 . Insulin: Yes loratadine (CLARITIN) 10 mg tablet Take 1 tablet by mouth once daily. Cholecalciferol, Vitamin D3, 1,000 unit cap Take 1 capsule by mouth once daily. Insulin Turkey, Disposable, (RELION PEN NEEDLES) 32 x 5/32 ndle Use as directed with insulin pen. 250.00. 4 injections/day. On insulin. Blood-Glucose Meter, Drum-type (ACCU-CHEK COMPACT PLUS CARE) kit Use as directed cyanocobalamin (VITAMIN B-12) 1,000 mcg tab Take 1 tablet by mouth once daily. Aspirin 81 mg Tab Take 81 mg by mouth. No current facility-administered medications on file prior to visit. Social History Social History Tobacco Use Smoking status: Former Smokeless tobacco: Never Tobacco comments: Quit 1980s Vaping Use Vaping Use: Never used Substance Use Topics Alcohol use: No Drug use: No EXAM: BP 97/64 Pulse 68 Resp 16 Wt 119 kg (262 lb 5.6 oz) SpO2 99% General Appearance: Well appearing, alert, in no acute distress, well-hydrated, well nourished.. Right leg: swelling and erythema to lower leg; superficial 2-3 cm wound under lateral fifth metatarsal head.. Health Maintenance List BP Controlled (<130/80) Never done DTaP,Tdap,Td Vaccine(1 - Tdap) Never done Shingrix (more content not included)... Normal [facility] CNPNon 04-18-2024 CNPN Telephone (FAMWS) ROSA MEYRS ([id number]) 1950 F Date Time Provider Department 04/18/24 [facility] During your visit today, we recorded the following information about you: Amado Lopes MD 04/18/2024 11:37 AM Signed Please notify patient that her lab results are stable; stay on the same medications and follow up as planned in 3 months. MD Santos Nava Kathryn, MA 04/18/2024 1:18 PM Signed Tried to reach pt at her number and pt son at his number but both lines just ring. Will try to call again later. BREEZY Ross Beth, LPN 04/19/2024 9:05 AM Signed Patient returned call and went over results, notes from Dr Lopes with understanding. Reminder of appt date and time in 3 months. Allergies As of Date: 04/18/2024 Noted Allergy Reaction DIANA INHIBITORS 07/17/2005 NEOMYCIN 07/17/2005 Date Reviewed: 04/10/2024 Reviewed by: Mariza Graham MA - Fully Assessed Reason for Visit: Results [95] Prescriptions as of 04/19/2024 - dapagliflozin propanediol (FARXIGA) 10 mg tablet Take 1 tablet by mouth daily with breakfast. - cephALEXin (KEFLEX) 500 mg capsule Take 1 capsule by mouth four times daily for 10 days. - clotrimazole-betametha sone (LOTRISONE) cream Apply to affected area two times a day. - furosemide (LASIX) 40 mg tablet Take 2 tablets by mouth once daily. - FLUoxetine (PROZAC) 10 mg capsule Take 1 capsule by mouth once daily. - carvedilol (COREG) 12.5 mg tablet Take 1 tablet by mouth two times a day. - insulin detemir U-100 (LEVEMIR) 100 unit/mL (3 mL) injection pen Inject 70 Units subcutaneously daily with breakfast. - insulin detemir U-100 (LEVEMIR U-100 INSULIN) 100 unit/mL injection Inject 70 Units subcutaneously every morning. - valsartan (DIOVAN) 160 mg tablet Take 1 tablet by mouth once daily. - insulin lispro (HUMALOG KWIKPEN INSULIN) 100 unit/mL INJECT 25 UNITS SUBCUTANEOUSLY THREE TIMES DAILY WITH MEALS DIRECTED - atorvastatin (LIPITOR) 40 mg tablet Take 1 tablet by mouth daily at bedtime. For cholesterol. - blood sugar diagnostic (BLOOD GLUCOSE TEST) test strip Alvina test strips. Test blood sugars once daily as directed. Dx: E11.9. Insulin: Yes - clopidogrel (PLAVIX) 75 mg tablet Take 1 tablet by mouth once daily. - Insulin Syringe-Needle U-100 1 mL 29 gauge x 1/2 1 Each once daily. USE ONE SYRINGE FOR EACH INSULIN DOSE/ 1 PER DAY - insulin needles, DISPOSABLE, (PEN NEEDLE) 31 gauge x 5/16 Use 4 times daily to inject insulin - blood sugar diagnostic (BLOOD GLUCOSE TEST) test strip Test blood sugar(s) 3 times daily. Dx: 250.02. Insulin: Yes - Blood-Glucose Meter misc 1 Each once daily. - Blood Sugar Diagnostic, Drum (ACCU-CHEK COMPACT TEST) strp Test blood sugar(s) 3 times daily. Dx:E11.9 . Insulin: Yes - loratadine (CLARITIN) 10 mg tablet Take 1 tablet by mouth once daily. - Cholecalciferol, Vitamin D3, 1,000 unit cap Take 1 capsule by mouth once daily. - Insulin Turkey, Disposable, (RELION PEN NEEDLES) 32 x 5/32 ndle Use as directed with insulin pen. 250.00. 4 injections/day. On insulin. - Blood-Glucose Meter, Drum-type (ACCU-CHEK COMPACT PLUS CARE) kit Use as directed - cyanocobalamin (VITAMIN B-12) 1,000 mcg tab Take 1 tablet by mouth once daily. - Aspirin 81 mg Tab Take 81 mg by mouth. Meds Comments as of 01/12/2023: Taking OTC Iron tablet once daily. 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] 10/15/2023 Heart failure, unspecified (HCC) [I50.9] 04/15/2023 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*04/15/2023 Encounter Status:Closed by RITA WHITTINGTON on 04/19/24 Normal [facility] CBC panel Auto (Bld)on 04-15 Erythrocyte distribution width (RBC) [Ratio] 15.9 % High 11.5-15.0 [facility] Comment on above: Order Comment: Speci men Type: BLOOD SPECIMENOrdering Facility: [facility] Address: [address] [place] [address] Performed By: #### 5 8410-2 ####[facility] LABCLIA [id number] [place] [address] [place] Hematocrit (Bld) [Volume fraction] 36.0 % Normal 36.0-46.0 [facility] Comment on above: Order Comment: Speci men Type: BLOOD SPECIMENOrdering Facility: [facility] Address: [address] [place] [address] Performed By: #### 5 8410-2 ####[facility] [id number] [place] [address] [place] Hemoglobin (Bld) [Mass/Vol] 10.9 g/dL Low 11.5-15.5 [facility] Comment on above: Order Comment: Speci men Type: BLOOD SPECIMENOrdering Facility: [facility] Address: [address] [place] [address] Performed By: #### 5 8410-2 ####[facility] [id number] [place] [address] [place] MCH (RBC) [Entitic mass] 26.8 pg Normal 26.0-34.0 [facility] Comment on above: Order Comment: Speci men Type: BLOOD SPECIMENOrdering Facility: [facility] Address: [address] [place] [address] Performed By: #### 5 8410-2 ####[facility] [id number] [place] [address] [place] MCHC (RBC) [Mass/Vol] 30.3 g/dL Low 30.5-36.0 [facility] Comment on above: Order Comment: Speci men Type: BLOOD SPECIMENOrdering Facility: [facility] Address: [address] [place] [address] Performed By: #### 5 8410-2 ####[facility] [id number] [place] [address] [place] MCV (RBC) [Entitic vol] 88.7 fL Normal 80.0-100.0 [facility] Comment on above: Order Comment: Speci men Type: BLOOD SPECIMENOrdering Facility: [facility] Address: [address] [place] [address] Performed By: #### 5 8410-2 ####[facility] LABIA [id number] [place] [address] [place] Nucleated RBC (Bld) [#/Vol] 10*3/uL Normal <0.01 [facility] Comment on above: Order Comment: Speci men Type: BLOOD SPECIMENOrdering Facility: [facility] Address: [address] [place] [address] Performed By: #### 5 8410-2 ####[facility] LABIA [id number] [place] [address] [place] Platelet mean volume (Bld) [Entitic vol] 11.9 fL Normal 9.0-12.7 [facility] Comment on above: Order Comment: Speci men Type: BLOOD SPECIMENOrdering Facility: [facility] Address: [address] [place] [address] Performed By: #### 5 8410-2 ####[facility] LABIA [id number] [place] [address] [place] Platelets (Bld) [#/Vol] 200 10*3/uL Normal 150-400 [facility] Comment on above: Order Comment: Speci men Type: BLOOD SPECIMENOrdering Facility: [facility] Address: [address] [place] [address] Performed By: #### 5 8410-2 ####[facility] LABIA [id number] [place] [address] [place] RBC (Bld) [#/Vol] 4.06 10*6/uL Normal 3.90-5.20 [facility] Comment on above: Order Comment: Speci men Type: BLOOD SPECIMENOrdering Facility: [facility] Address: [address] [place], [place] [address] Performed By: #### 5 8410-2 ####[facility] LABCLIA [id number] [place] [address] [place] WBC (Bld) [#/Vol] 8.10 10*3/uL Normal 3.70-11.00 [facility] Comment on above: Order Comment: Speci men Type: BLOOD SPECIMENOrdering Facility: [facility] Address: [address] [place] [address] Performed By: #### 5 8410-2 ####[facility] LABCLIA [id number] [place] [address] [place] Comprehensive metabolic 2000 panelon 04-15-2024 Albumin [Mass/Vol] 4.1 g/dL Normal 3.9-4.9 [facility] Comment on above: Order Comment: Speci men Type: BLOOD SPECIMENOrdering Facility: [facility] Address: [address] [place] [address] Performed By: #### 2 4331-1, 46223-1 ####[facility] LABCLIA [id number] [place] [address] [place] ALP [Catalytic activity/Vol] 102 U/L Normal 34-123 [facility] Comment on above: Order Comment: Speci men Type: BLOOD SPECIMENOrdering Facility: [facility] Address: [address] [place] [address] Performed By: #### 2 4331-1, 27522-0 ####[facility] LABCLIA [id number] [place] [id number] [place] ALT [Catalytic activity/Vol] 17 U/L Normal 7-38 [facility] Comment on above: Order Comment: Speci men Type: BLOOD SPECIMENOrdering Facility: [facility] Address: [address] [place] [address] Performed By: #### 2 4331-1, 71433-1 ####[facility] LABCLIA [id number] [place] [address] [place] Anion gap [Moles/Vol] 15 mmol/L Normal 8-15 [facility] Comment on above: Order Comment: Speci men Type: BLOOD SPECIMENOrdering Facility: [facility] Address: [address] [place] [address] Performed By: #### 2 4331-1, 71167-6 ####[facility] LABCLIA [id number] [place] [address] [place] AST [Catalytic activity/Vol] 17 U/L Normal 13-35 [facility] Comment on above: Order Comment: Speci men Type: BLOOD SPECIMENOrdering Facility: [facility] Address: [address] [place] [address] Performed By: #### 2 4331-1, 39701-6 ####[facility] LABCLIA [id number] [place] [address] [place] Bilirubin [Mass/Vol] 0.6 mg/dL Normal 0.2-1.3 [facility] Comment on above: Order Comment: Speci men Type: BLOOD SPECIMENOrdering Facility: [facility] Address: [address] [place] [address] Performed By: #### 2 4331-1, 20849-4 ####[facility] LABCLIA [id number] [place] [address] [place] Calcium [Mass/Vol] 9.0 mg/dL Normal 8.5-10.2 [facility] Comment on above: Order Comment: Speci men Type: BLOOD SPECIMENOrdering Facility: [facility] Address: [address] [place] [address] Performed By: #### 2 4331-1, 54831-9 ####[facility] LABCLIA [id number] [place] [id number] [place] Chloride [Moles/Vol] 104 mmol/L Normal 98-107 [facility] Comment on above: Order Comment: Speci men Type: BLOOD SPECIMENOrdering Facility: [facility] Address: [address] [place] [address] Performed By: #### 2 4331-1, 70305-1 ####[facility] LABIA [id number] [address] [address] [place] CO2 [Moles/Vol] 22 mmol/L Normal 22-30 [facility] Comment on above: Order Comment: Speci men Type: BLOOD SPECIMENOrdering Facility: [facility] Address: [address] [place] [address] Performed By: #### 2 4331-1, 45441-8 ####[facility] LABIA [id number] [place] [address] [place] Creatinine [Mass/Vol] 1.66 mg/dL High 0.58-0.96 [facility] Comment on above: Order Comment: Speci men Type: BLOOD SPECIMENOrdering Facility: [facility] Address: [address] [place] [address] Performed By: #### 2 4331-1, 82129-6 ####[facility] [id number] [place] [address] [place] Creatinine and Glomerular filtration rate.predicted panel (S/P/Bld) 32 mL/min/1.73m??? Low >=60 [facility] Comment on above: Order Comment: Speci men Type: BLOOD SPECIMENOrdering Facility: [facility] Address: [address] [place] [address] Result Comment: Kathrine mated Glomerular Filtration Rate (eGFR) is calculated using the 2020 CKD-EPI creatinine equation. This equation utilizes serum creatinine, sex, and age as parameters. The creatinine assay has traceable calibration to isotope dilution-mass spectrometry. Refer to KDIGO guidelines for clinical interpretation. In patients with unstable renal function, e.g. those with acute kidney injury, the eGFR may not accurately reflect actual GFR. Performed By: #### 2 4331-1, 61106-5 ####[facility] LABCLIA [id number] [place] [address] [place] Glucose [Mass/Vol] 228 mg/dL High 74-99 [facility] Comment on above: Order Comment: Speci men Type: BLOOD SPECIMENOrdering Facility: [facility] Address: [address] [place] [address] Result Comment: The [place] Diabetes Association (ADA) provides guidance for cutoff values for fasting glucose and random glucose. The ADA defines fasting as no caloric intake for at least 8 hours. Fasting plasma glucose results between 100 to 125 mg/dL indicate increased risk for diabetes (prediabetes). Fasting plasma glucose results greater than or equal to 126 mg/dL meet the criteria for diagnosis of diabetes. In the absence of unequivocal hyperglycemia, results should be confirmed by repeat testing. In a patient with classic symptoms of hyperglycemia or hyperglycemic crisis, random plasma glucose results greater than or equal to 200 mg/dL meet the criteria for diagnosis of diabetes. Reference: Standards of Medical Care in Diabetes 2016, [place] [employer] Association. Diabetes Care. 2016.39(Suppl 1). Performed By: #### 2 4331-1, 86311-5 ####[facility] LABIA [id number] [place] [address] [place] Potassium [Moles/Vol] 4.8 mmol/L Normal 3.7-5.1 [facility] Comment on above: Order Comment: Speci men Type: BLOOD SPECIMENOrdering Facility: [facility] Address: [address] [place] [address] Performed By: #### 2 4331-1, 14627-7 ####[facility] LABIA [id number] [place] [address] [place] Protein [Mass/Vol] 7.2 g/dL Normal 6.3-8.0 [facility] Comment on above: Order Comment: Speci men Type: BLOOD SPECIMENOrdering Facility: [facility] Address: [address] [place] [address] Performed By: #### 2 4331-, 04876-1 ####[facility] LABIA [id number] [place] [id number] [place] Sodium [Moles/Vol] 141 mmol/L Normal 136-144 [facility] Comment on above: Order Comment: Speci men Type: BLOOD SPECIMENOrdering Facility: [facility] Address: [address] [place] [address] Performed By: #### 2 4331-1, 00438-3 ####[facility] LABIA [id number] [place] [address] [place] Urea nitrogen [Mass/Vol] 37 mg/dL High 7-21 [facility] Comment on above: Order Comment: Speci men Type: BLOOD SPECIMENOrdering Facility: [facility] Address: [address] [place] [address] Performed By: #### 2 4331-1, 32180-1 ####[facility] [id number] [place] [address] [place] HbA1c (Bld)on 04-15-2024 Average glucose Estimated from glycated hemoglobin (Bld) [Mass/Vol] 180 mg/dL Normal [facility] Comment on above: Order Comment: Speci men Type: BLOOD SPECIMENOrdering Facility: [facility] Address: [address] [place] [address] Result Comment: eAG: (Estimated average glucose) is a calculated value from HgbA1c and is manufacturers service representative of the average blood glucose level in the last 2-3 month period. Performed By: #### 5 5454-3 ####[facility] [id number] [place] [address] [place] HbA1c (Bld) [Mass fraction] 7.9 % High 4.3-5.6 [facility] Comment on above: Order Comment: Speci men Type: BLOOD SPECIMENOrdering Facility: [facility] Address: [address] [place] [address] Result Comment: [place] Diabetes Association guidelines indicate that patients with HgbA1c in the range 5.7-6.4% are at increased risk for development of diabetes, and intervention by lifestyle modification may be beneficial. HgbA1c greater or equal to 6.5% is considered diagnostic of diabetes. Performed By: #### 5 5454-3 ####[facility] LABCLIA [id number] [place] [address] [place] Lipid 1996 panelon 4 Cholesterol [Mass/Vol] 131 mg/dL Normal <200 [facility] Comment on above: Order Comment: Maxim davies Type: BLOOD SPECIMENOrdering Facility: [facility] Address: [address] [place] [address] Result Comment: <200 mg/dL, Desirable 200-239 mg/dL, Borderline high >239 mg/dL, High Performed By: #### 2 4331-1, 21577-5 ####[facility] LABCLIA [id number] [address] [place] [facility] Cholesterol in HDL [Mass/Vol] 34 mg/dL Low >39 [facility] Comment on above: Order Comment: Maxim davies Type: BLOOD SPECIMENOrdering Facility: [facility] Address: [address] [place] [address] Result Comment: 40-5 9 mg/dL, Acceptable >59 mg/dL, High: Negative risk factor for coronary heart disease <40 mg/dL, Low: Positive risk factor for coronary heart disease Performed By: #### 2 4331-1, 28201-4 ####[facility] LABCLIA [id number] [address] [place] Cholesterol in LDL [Mass/Vol] 68 mg/dL Normal <100 [facility] Comment on above: Order Comment: Maxim davies Type: BLOOD SPECIMENOrdering Facility: [facility] Address: [address] [place] [address] Result Comment: <100 mg/dL, Optimal 100-129 mg/dL, Near optimal/above optimal 130-159 mg/dL, Borderline high 160-189 mg/dL, High >189 mg/dL, Very high Secondary prevention optimal LDL Cholesterol levels are recommended to be < 70 mg/dL Performed By: #### 2 4331-1, 43457-0 ####[facility] [id number] [address] [address] [place] Cholesterol in LDL/Cholesterol in HDL [Mass ratio] 2.00 {ratio} Normal <2.54 [facility] Comment on above: Order Comment: Trevori men Type: BLOOD SPECIMENOrdering Facility: [facility] Address: [address] [place] [address] Result Comment: Refe rence: 1. National Cholesterol Education Program ATP III Guideline At-A-Glance Quick Desk Reference: National Heart, Lung, and Blood [place]. National Institutes of Health. 2001: NIH Publication No. 01-3305. 2. An International Atherosclerosis Society position paper: global recommendations for the management of dyslipidemia: executive summary, Atherosclerosis. 2014: 232(2):410-413. Performed By: #### 2 4331-, 73153-3 ####[facility] [id number] [place] [address] [place] Cholesterol in VLDL [Mass/Vol] 29 mg/dL Normal <30 [facility] Comment on above: Order Comment: Maxim davies Type: BLOOD SPECIMENOrdering Facility: [facility] Address: [address] [place] [address] Performed By: #### 2 4331-, 73672-3 ####[facility] [id number] [address] [address] [place] Cholesterol non HDL [Mass/Vol] 97 mg/dL Normal <130 [facility] Comment on above: Order Comment: Maxim men Type: BLOOD SPECIMENOrdering Facility: [facility] Address: [address] [place] [address] Result Comment: <130 mg/dL, Optimal 130-159 mg/dL, Near optimal/above optimal 160-189 mg/dL, Borderline high 190-219 mg/dL, High >219 mg/dL, Very high Secondary prevention optimal non HDL Cholesterol levels are recommended to be <100 mg/dL Performed By: #### 2 4331-1, 95286-5 ####[facility] LABCLIA [id number] [place] [address] [place] Cholesterol.total/C holesterol in HDL [Mass ratio] 3.85 {ratio} Normal <5.10 [facility] Comment on above: Order Comment: Speci men Type: BLOOD SPECIMENOrdering Facility: [facility] Address: [address] [place] [address] Performed By: #### 2 4331-1, 98152-6 ####[facility] LABCLIA [id number] [address] [place] FASTING TIME 14 hrs Normal [facility] Comment on above: Order Comment: Speci men Type: BLOOD SPECIMENOrdering Facility: [facility] Address: [address] [place] [address] Performed By: #### 2 4331-1, 29350-9 ####[facility] [id number] [place] [address] [place] Triglyceride [Mass/Vol] 146 mg/dL Normal <150 [facility] Comment on above: Order Comment: Speci men Type: BLOOD SPECIMENOrdering Facility: [facility] Address: [address] [place] [address] Result Comment: <150 mg/dL, Normal 150-199 mg/dL, Borderline high 200-499 mg/dL, High >499 mg/dL, Very high Performed By: #### 2 4331-1, 94565-3 ####[facility]CLIA [id number] [place] [address] [place] CNOVon 04-10-2024 CNOV Office Visit (FAMPWS ) ROSA MYERS ([id number]) 1950 F Date Time Provider Department 04/10/24 6:00 PM AMADO LOPESPWS During your visit today, we recorded the following information about you: Pulse Respiration Blood pressure Weight 74/minute 16/minute 140/80 120 kg Amado Lopes MD 04/10/2024 7:02 PM Signed Chief Complaint Patient presents with: Physical HPI Rosa Myers is a 74 year old female who presents here today for physical. Pt has not been seen since March 2023. Here with her son Marcell. No falls in the last year. Mini Co/ Behavioral Health Screening PHQ-2 Score: 0 (Lower risk for depression) NURYS-2 Score: 0 (Lower risk for anxiety) Recommendation: medication management; see below No bowel, Gi, or urinary issues. She does urinate every 2-4 hours through the day and night. GERD: Stable, no longer using Protonix 40 mg daily. HTN: Taking Diovan 160 mg daily, Coreg 12.5 mg BID. No chest pains, dizziness, or SOB. Does not check BP at home. Lipid/CAD: Taking Plavix 75 mg daily and Lipitor 40 mg daily. Also taking ASA 81 mg daily. Follows with [facility]; had recent echo showing no change EF 35%. DM: Is on Humalog 25 units TID with meals, Levemir 70 units daily, Farxiga 10 mg daily. No hypoglycemic episodes, no neuropathy sx. Does check BS at home once a day with FBS 194. Edema: taurus legs; stable with lasix 40 mg daily. She doesn't feel that the lasix is helping, swelling doesn't improve and it doesn't get any better over night. She has some redness to the lower legs, no pain or drainage. Spot on left anterior mancilla that became red, peeled off, now some drainage/ Has not seen an eye doctor for sometime. Had right eye cataract removed but never went back to get the other eye done due to transportation. She feels she can see just fine and will wear glasses to read. Marcell, her son has some concerns about depression. She doesn't seem to have any excitement about things or desire to do anything. Past medical history, appointments, medications, allergies reviewed. 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 insulin detemir U-100 (LEVEMIR) 100 unit/mL (3 mL) injection pen Inject 70 Units subcutaneously daily with breakfast. insulin detemir U-100 (LEVEMIR U-100 INSULIN) 100 unit/mL injection Inject 70 Units subcutaneously every morning. furosemide (LASIX) 40 mg tablet Take 1 tablet by mouth once daily. valsartan (DIOVAN) 160 mg tablet Take 1 tablet by mouth once daily. insulin lispro (HUMALOG KWIKPEN INSULIN) 100 unit/mL INJECT 25 UNITS SUBCUTANEOUSLY THREE TIMES DAILY WITH MEALS DIRECTED atorvastatin (LIPITOR) 40 mg tablet Take 1 tablet by mouth daily at bedtime. For cholesterol. blood sugar diagnostic (BLOOD GLUCOSE TEST) test strip Alvina test strips. Test blood sugars once daily as directed. Dx: E11.9. Insulin: Yes dapagliflozin propanediol (FARXIGA) 10 mg tablet Take 1 tablet by mouth daily with breakfast. clopidogrel (PLAVIX) 75 mg tablet Take 1 tablet by mouth once daily. Insulin Syringe-Needle U-100 1 mL 29 gauge x 1/2 1 Each once daily. USE ONE SYRINGE FOR EACH INSULIN DOSE/ 1 PER DAY insulin needles, DISPOSABLE, (PEN NEEDLE) 31 gauge x 5/16 Use 4 times daily to inject insulin blood sugar diagnostic (BLOOD GLUCOSE TEST) test strip Test blood sugar(s) 3 times daily. Dx: 250.02. Insulin: Yes pantoprazole DR (PROTONIX) 40 mg tablet Take 1 tablet by mouth once daily. Blood-Glucose Meter misc 1 Each once daily. Blood Sugar Diagnostic, Hyun (ACCU-CHEK COMPACT TEST) strp Test blood sugar(s) 3 times daily. Dx:E11.9 . Insulin: Yes loratadine (CLARITIN) 10 mg tablet Take 1 tablet by mouth once daily. Cholecalciferol, Vitamin D3, 1,000 unit cap Take 1 capsule by mouth once daily. Insulin Turkey, Disposable, (RELION PEN NEEDLES) 32 x 5/32 ndle Use a (more content not included)... [facility] ([id number]) 1950 F Date Time Provider Department 04/04/24 [facility] During your visit today, we recorded the following information about you: Maciel Busby APRN.CNP 04/04/2024 10:49 AM Signed STAMP Please reach out to patient for overdue appointment for chronic disease management with myself. If he/she is no longer following with Dr. Lopes, please remove name from PCP field. Due for Medicare Wellness/Follow up, would need 40 minutes. Maciel Busby APRN.CNP Allergies As of Date: 04/04/2024 Noted Allergy Reaction DIANA INHIBITORS 07/17/2005 NEOMYCIN 07/17/2005 Date Reviewed: 04/15/2023 Reviewed by: Marietta Escalona MA - Fully Assessed Reason for Visit: Appointment [186] Prescriptions as of 04/04/2024 - carvedilol (COREG) 12.5 mg tablet Take 1 tablet by mouth two times a day. - insulin detemir U-100 (LEVEMIR) 100 unit/mL (3 mL) injection pen Inject 70 Units subcutaneously daily with breakfast. - insulin detemir U-100 (LEVEMIR U-100 INSULIN) 100 unit/mL injection Inject 70 Units subcutaneously every morning. - furosemide (LASIX) 40 mg tablet Take 1 tablet by mouth once daily. - valsartan (DIOVAN) 160 mg tablet Take 1 tablet by mouth once daily. - insulin lispro (HUMALOG KWIKPEN INSULIN) 100 unit/mL INJECT 25 UNITS SUBCUTANEOUSLY THREE TIMES DAILY WITH MEALS DIRECTED - atorvastatin (LIPITOR) 40 mg tablet Take 1 tablet by mouth daily at bedtime. For cholesterol. - blood sugar diagnostic (BLOOD GLUCOSE TEST) test strip Alvina test strips. Test blood sugars once daily as directed. Dx: E11.9. Insulin: Yes - dapagliflozin propanediol (FARXIGA) 10 mg tablet Take 1 tablet by mouth daily with breakfast. - clopidogrel (PLAVIX) 75 mg tablet Take 1 tablet by mouth once daily. - Insulin Syringe-Needle U-100 1 mL 29 gauge x 1/2 1 Each once daily. USE ONE SYRINGE FOR EACH INSULIN DOSE/ 1 PER DAY - insulin needles, DISPOSABLE, (PEN NEEDLE) 31 gauge x 5/16 Use 4 times daily to inject insulin - blood sugar diagnostic (BLOOD GLUCOSE TEST) test strip Test blood sugar(s) 3 times daily. Dx: 250.02. Insulin: Yes - pantoprazole DR (PROTONIX) 40 mg tablet Take 1 tablet by mouth once daily. - Blood-Glucose Meter misc 1 Each once daily. - Blood Sugar Diagnostic, Drum (ACCU-CHEK COMPACT TEST) strp Test blood sugar(s) 3 times daily. Dx:E11.9 . Insulin: Yes - loratadine (CLARITIN) 10 mg tablet Take 1 tablet by mouth once daily. - Cholecalciferol, Vitamin D3, 1,000 unit cap Take 1 capsule by mouth once daily. - Insulin Turkey, Disposable, (RELION PEN NEEDLES) 32 x 5/32 ndle Use as directed with insulin pen. 250.00. 4 injections/day. On insulin. - Blood-Glucose Meter, Drum-type (ACCU-CHEK COMPACT PLUS CARE) kit Use as directed - cyanocobalamin (VITAMIN B-12) 1,000 mcg tab Take 1 tablet by mouth once daily. - Aspirin 81 mg Tab Take 81 mg by mouth. Meds Comments as of 01/12/2023: Taking OTC Iron tablet once daily. 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] 10/15/2023 Heart failure, unspecified ([facility]) [I50.9] 04/15/2023 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*04/15/2023 Encounter Status:Closed by CHA TINAJERO on 04/04/24 Normal [facility] CBC W Auto Differential pane l (Bld)on 10-09-2023 Basophils (Bld) [#/Vol] 0.08 10*3/uL Normal <0.11 [facility] Comment on above: Order Comment: Speci men Type: BLOOD SPECIMENOrdering Facility: [facility] Address: [address] [place] [address] Performed By: #### 5 7021-8 ####[facility] [id number] [place] [address] [place] Basophils/100 WBC (Bld) 1.0 % Normal [facility] Comment on above: Order Comment: Speci men Type: BLOOD SPECIMENOrdering Facility: [facility] Address: [address] [place] [address] Performed By: #### 5 7021-8 ####[facility]CLIA [id number] [place] [address] [place] Differential cell count method Nom (Bld) Auto Normal [facility] Comment on above: Order Comment: Speci men Type: BLOOD SPECIMENOrdering Facility: [facility] Address: [address] [place] [address] Performed By: #### 5 7021-8 ####[facility]CL[facility] [id number] [place] [address] [place] Eosinophils (Bld) [#/Vol] 0.17 10*3/uL Normal <0.46 [facility] Comment on above: Order Comment: Speci men Type: BLOOD SPECIMENOrdering Facility: [facility] Address: [address] [place] [address] Performed By: #### 5 7021-8 ####[facility] [id number] [place] [address] [place] Eosinophils/100 WBC (Bld) 2.1 % Normal [facility] Comment on above: Order Comment: Speci men Type: BLOOD SPECIMENOrdering Facility: [facility] Address: [address] [place] [address] Performed By: #### 5 7021-8 ####[facility]CLIA [id number] [place] [address] [place] Erythrocyte distribution width (RBC) [Ratio] 15.1 % High 11.5-15.0 [facility] Comment on above: Order Comment: Speci men Type: BLOOD SPECIMENOrdering Facility: [facility] Address: [address] [place] [address] Performed By: #### 5 7021-8 ####[facility]CL[facility] [id number] [place] [address] [place] Hematocrit (Bld) [Volume fraction] 37.2 % Normal 36.0-46.0 [facility] Comment on above: Order Comment: Speci men Type: BLOOD SPECIMENOrdering Facility: [facility] Address: [address] [place] [address] Performed By: #### 5 7021-8 ####[facility] [id number] [place] [address] [place] Hemoglobin (Bld) [Mass/Vol] 11.1 g/dL Low 11.5-15.5 [facility] Comment on above: Order Comment: Speci men Type: BLOOD SPECIMENOrdering Facility: [facility] Address: [address] [place] [address] Performed By: #### 5 7021-8 ####[facility] [id number] [place] [address] [place] Immature granulocytes (Bld) [#/Vol] 10*3/uL Normal <0.10 [facility] Comment on above: Order Comment: Speci men Type: BLOOD SPECIMENOrdering Facility: [facility] Address: [address] [place] [address] Performed By: #### 5 7021-8 ####[facility]CLIA [id number] [place] [address] [place] Immature granulocytes/100 WBC (Bld) 0.3 % Normal [facility] Comment on above: Order Comment: Speci men Type: BLOOD SPECIMENOrdering Facility: [facility] Address: [address] [place] [address] Performed By: #### 5 7021-8 ####[facility] [id number] [place] [address] [place] Lymphocytes (Bld) [#/Vol] 1.52 10*3/uL Normal 1.00-4.00 [facility] Comment on above: Order Comment: Speci men Type: BLOOD SPECIMENOrdering Facility: [facility] Address: [address] [place] [address] Performed By: #### 5 7021-8 ####[facility] [id number] [place] [address] [place] Lymphocytes/100 WBC (Bld) 19.0 % Normal [facility] Comment on above: Order Comment: Speci men Type: BLOOD SPECIMENOrdering Facility: [facility] Address: [address] [place] [address] Performed By: #### 5 7021-8 ####[facility] [id number] [place] [address] [place] MCH (RBC) [Entitic mass] 26.0 pg Normal 26.0-34.0 [facility] Comment on above: Order Comment: Speci men Type: BLOOD SPECIMENOrdering Facility: [facility] Address: [address] [place] [address] Performed By: #### 5 7021-8 ####[facility] [id number] [place] [address] [place] MCHC (RBC) [Mass/Vol] 29.8 g/dL Low 30.5-36.0 [facility] Comment on above: Order Comment: Speci men Type: BLOOD SPECIMENOrdering Facility: [facility] Address: [address] [place] [address] Performed By: #### 5 7021-8 ####[facility]CLIA [id number] [place] [address] [place] MCV (RBC) [Entitic vol] 87.1 fL Normal 80.0-100.0 [facility] Comment on above: Order Comment: Speci men Type: BLOOD SPECIMENOrdering Facility: [facility] Address: [address] [place] [address] Performed By: #### 5 7021-8 ####[facility] [id number] [place] [address] [place] Monocytes (Bld) [#/Vol] 0.66 10*3/uL Normal <0.87 [facility] Comment on above: Order Comment: Speci men Type: BLOOD SPECIMENOrdering Facility: [facility] Address: [address] [place] [address] Performed By: #### 5 7021-8 ####[facility] [id number] [place] [address] [place] Monocytes/100 WBC (Bld) 8.3 % Normal [facility] Comment on above: Order Comment: Speci men Type: BLOOD SPECIMENOrdering Facility: [facility] Address: [address] [place] [address] Performed By: #### 5 7021-8 ####[facility] [id number] [place] [address] [place] Neutrophils (Bld) [#/Vol] 5.53 10*3/uL Normal 1.45-7.50 [facility] Comment on above: Order Comment: Speci men Type: BLOOD SPECIMENOrdering Facility: [facility] Address: [address] [place] [address] Performed By: #### 5 7021-8 ####[facility] [id number] [place] [address] [place] Neutrophils/100 WBC (Bld) 69.3 % Normal [facility] Comment on above: Order Comment: Speci men Type: BLOOD SPECIMENOrdering Facility: [facility] Address: [address] [place] [address] Performed By: #### 5 7021-8 ####[facility] [id number] [place] [address] [place] Nucleated RBC (Bld) [#/Vol] 10*3/uL Normal <0.01 [facility] Comment on above: Order Comment: Speci men Type: BLOOD SPECIMENOrdering Facility: [facility] Address: [address] [place] [address] Performed By: #### 5 7021-8 ####[facility] [id number] [place] [address] [place] Nucleated RBC/100 WBC (Bld) [Ratio] 0.0 /100 WBC Normal [facility] Comment on above: Order Comment: Speci men Type: BLOOD SPECIMENOrdering Facility: [facility] Address: [address] [place] [address] Performed By: #### 5 7021-8 ####[facility] [id number] [place] [address] [place] Platelet mean volume (Bld) [Entitic vol] 11.3 fL Normal 9.0-12.7 [facility] Comment on above: Order Comment: Speci men Type: BLOOD SPECIMENOrdering Facility: [facility] Address: [address] [place] [address] Performed By: #### 5 7021-8 ####[facility] [id number] [place] [address] [place] Platelets (Bld) [#/Vol] 242 10*3/uL Normal 150-400 [facility] Comment on above: Order Comment: Speci men Type: BLOOD SPECIMENOrdering Facility: [facility] Address: [address] [place] [address] Performed By: #### 5 7021-8 ####[facility] [id number] [place] [address] [place] RBC (Bld) [#/Vol] 4.27 10*6/uL Normal 3.90-5.20 [facility] Comment on above: Order Comment: Speci men Type: BLOOD SPECIMENOrdering Facility: [facility] Address: [address] [place] [address] Performed By: #### 5 7021-8 ####[facility] [id number] [place] [address] [place] WBC (Bld) [#/Vol] 7.98 10*3/uL Normal 3.70-11.00 [facility] Comment on above: Order Comment: Speci men Type: BLOOD SPECIMENOrdering Facility: [facility] Address: [address] [place] [address] Performed By: #### 5 7021-8 ####[facility] [id number] [address] [address] [place] Comprehensive metabolic 2000 panelon 10-09-2023 Albumin [Mass/Vol] 4.1 g/dL Normal 3.9-4.9 [facility] Comment on above: Order Comment: Speci men Type: BLOOD SPECIMENOrdering Facility: [facility] Address: [address] [place] [address] Performed By: #### 2 4331-1, 3015-3, 46191-4 ####[facility] [id number] [place] [address] [place] ALP [Catalytic activity/Vol] 96 U/L Normal 34-123 [facility] Comment on above: Order Comment: Speci men Type: BLOOD SPECIMENOrdering Facility: [facility] Address: [address] [place] [address] Performed By: #### 2 4331-1, 3015-3, 16556-3 ####[facility] [id number] [place] [address] [place] ALT [Catalytic activity/Vol] 19 U/L Normal 7-38 [facility] Comment on above: Order Comment: Speci men Type: BLOOD SPECIMENOrdering Facility: [facility] Address: [address] [place] [address] Performed By: #### 2 4331-1, 3015-3, 62123-1 ####[facility] [id number] [place] [id number] [place] Anion gap [Moles/Vol] 15 mmol/L Normal 9-18 [facility] Comment on above: Order Comment: Speci men Type: BLOOD SPECIMENOrdering Facility: [facility] Address: [address] [place] [address] Performed By: #### 2 4331-1, 3015-3, ####[facility] [id number] [address] [address] [place] AST [Catalytic activity/Vol] 16 U/L Normal 13-35 [facility] Comment on above: Order Comment: Speci men Type: BLOOD SPECIMENOrdering Facility: [facility] Address: [address] [place] [id number] Performed By: #### 2 4331-1, 3, ####[facility] [id number] [address] [address] [place] Bilirubin [Mass/Vol] 0.5 mg/dL Normal 0.2-1.3 [facility] Comment on above: Order Comment: Speci men Type: BLOOD SPECIMENOrdering Facility: [facility] Address: [address] [place] [id number] Performed By: #### 2 4331-1, 3, ####[facility] [id number] [address] [address] [place] Calcium [Mass/Vol] 9.5 mg/dL Normal 8.5-10.2 [facility] Comment on above: Order Comment: Speci men Type: BLOOD SPECIMENOrdering Facility: [facility] Address: [address] [place] [address] Performed By: #### 2 4331-1, 3, ####[facility] [id number] [address] [address] [place] Chloride [Moles/Vol] 103 mmol/L Normal 97-105 [facility] Comment on above: Order Comment: Speci men Type: BLOOD SPECIMENOrdering Facility: [facility] Address: [address] [place] [address] Performed By: #### 2 4331-1, 3015-3, ####[facility] LABIA [id number] [place] [address] [place] CO2 [Moles/Vol] 21 mmol/L Low 22-30 [facility] Comment on above: Order Comment: Speci men Type: BLOOD SPECIMENOrdering Facility: [facility] Address: [address] [place] [address] Performed By: #### 2 4331-1, 3015-3, ####[facility]IA [id number] [place] [id number] [place] Creatinine [Mass/Vol] 1.93 mg/dL High 0.58-0.96 [facility] Comment on above: Order Comment: Speci men Type: BLOOD SPECIMENOrdering Facility: [facility] Address: [address] [place] [address] Performed By: #### 2 4331-1, 3015-3, ####[facility] [id number] [place] [address] [place] Creatinine and Glomerular filtration rate.predicted panel (S/P/Bld) 27 mL/min/1.73m??? Low >=60 [facility] Comment on above: Order Comment: Speci men Type: BLOOD SPECIMENOrdering Facility: [facility] Address: [address] [place] [address] Result Comment: Kathrine mated Glomerular Filtration Rate (eGFR) is calculated using the 2020 CKD-EPI creatinine equation. This equation utilizes serum creatinine, sex, and age as parameters. The creatinine assay has traceable calibration to isotope dilution-mass spectrometry. Refer to KDIGO guidelines for clinical interpretation. In patients with unstable renal function, e.g. those with acute kidney injury, the eGFR may not accurately reflect actual GFR. Performed By: #### 2 4331-1, 3015-3, ####[facility] [id number] [place] [id number] [place] Glucose [Mass/Vol] 250 mg/dL High 74-99 [facility] Comment on above: Order Comment: Speci men Type: BLOOD SPECIMENOrdering Facility: [facility] Address: [address] [place] [address] Result Comment: The [place] Diabetes Association (ADA) provides guidance for cutoff values for fasting glucose and random glucose. The ADA defines fasting as no caloric intake for at least 8 hours. Fasting plasma glucose results between 100 to 125 mg/dL indicate increased risk for diabetes (prediabetes). Fasting plasma glucose results greater than or equal to 126 mg/dL meet the criteria for diagnosis of diabetes. In the absence of unequivocal hyperglycemia, results should be confirmed by repeat testing. In a patient with classic symptoms of hyperglycemia or hyperglycemic crisis, random plasma glucose results greater than or equal to 200 mg/dL meet the criteria for diagnosis of diabetes. Reference: Standards of Medical Care in Diabetes 2016, [place] Diabetes Association. Diabetes Care. 2016.39(Suppl 1). Performed By: #### 2 4331-1, 3015-3, ####[facility] LABCLIA [id number] [place] [address] [place] Potassium [Moles/Vol] 5.2 mmol/L High 3.7-5.1 [facility] Comment on above: Order Comment: Maxim davies Type: BLOOD SPECIMENOrdering Facility: [facility] Address: [address] [place] [address] Performed By: #### 2 4331-1, 3015-3, ####[facility] LABCLIA [id number] [place] [address] [place] Protein [Mass/Vol] 7.1 g/dL Normal 6.3-8.0 [facility] Comment on above: Order Comment: Maxim davies Type: BLOOD SPECIMENOrdering Facility: [facility] Address: [address] [place] [address] Performed By: #### 2 4331-1, 3015-3, 37821-8 ####[facility] LABCLIA [id number] [place] [id number] [place] Sodium [Moles/Vol] 139 mmol/L Normal 136-144 [facility] Comment on above: Order Comment: Maxim davies Type: BLOOD SPECIMENOrdering Facility: [facility] Address: [address] [place] [address] Performed By: #### 2 4331-1, 3016-3, 53418-6 ####[facility] LABCLIA [id number] [place] [address] [place] Urea nitrogen [Mass/Vol] 36 mg/dL High 7-21 [facility] Comment on above: Order Comment: Trevori men Type: BLOOD SPECIMENOrdering Facility: [facility] Address: [address] [place] [address] Performed By: #### 2 4331-1, 3016-3, 68737-5 ####[facility] LABIA [id number] [place] [address] [place] HbA1c (Bld)on 10-09-2023 Average glucose Estimated from glycated hemoglobin (Bld) [Mass/Vol] 151 mg/dL Normal [facility] Comment on above: Order Comment: Maxim davies Type: BLOOD SPECIMENOrdering Facility: [facility] Address: [address] [place] [address] Result Comment: eAG: (Estimated average glucose) is a calculated value from HgbA1c and is manufacturers service representative of the average blood glucose level in the last 2-3 month period. Performed By: #### 5 5454-3 ####[facility] [id number] [place] [address] [place] HbA1c (Bld) [Mass fraction] 6.9 % High 4.3-5.6 [facility] Comment on above: Order Comment: Maxim davies Type: BLOOD SPECIMENOrdering Facility: [facility] Address: [address] [place] [address] Result Comment: [place] Diabetes Association guidelines indicate that patients with HgbA1c in the range 5.7-6.4% are at increased risk for development of diabetes, and intervention by lifestyle modification may be beneficial. HgbA1c greater or equal to 6.5% is considered diagnostic of diabetes. Performed By: #### 5 5454-3 ####[facility] LABCLIA [id number] [place] [address] [place] Lipid 1996 panelon 4 Cholesterol [Mass/Vol] 128 mg/dL Normal <200 [facility] Comment on above: Order Comment: Speci men Type: BLOOD SPECIMENOrdering Facility: [facility] Address: [address] [place] [address] Result Comment: <200 mg/dL, Desirable 200-239 mg/dL, Borderline high >239 mg/dL, High Performed By: #### 2 4331-1, 301-3, 02195-7 ####[facility] LABCLIA [id number] [address] [place] Cholesterol in HDL [Mass/Vol] 33 mg/dL Low >39 [facility] Comment on above: Order Comment: Speci men Type: BLOOD SPECIMENOrdering Facility: [facility] Address: [address] [place] [address] Result Comment: 40-5 9 mg/dL, Acceptable >59 mg/dL, High: Negative risk factor for coronary heart disease <40 mg/dL, Low: Positive risk factor for coronary heart disease Performed By: #### 2 4331-1, 6-3, 73155-7 ####[facility] LABCLIA [id number] [address] [place] Cholesterol in LDL [Mass/Vol] 67 mg/dL Normal <100 [facility] Comment on above: Order Comment: Speci men Type: BLOOD SPECIMENOrdering Facility: [facility] Address: [address] [place] [address] Result Comment: <100 mg/dL, Optimal 100-129 mg/dL, Near optimal/above optimal 130-159 mg/dL, Borderline high 160-189 mg/dL, High >189 mg/dL, Very high Secondary prevention optimal LDL Cholesterol levels are recommended to be < 70 mg/dL Performed By: #### 2 4331-1, 3016-3, 09366-8 ####[facility] LABCLIA [id number] [place] [address] [place] Cholesterol in LDL/Cholesterol in HDL [Mass ratio] 2.03 {ratio} Normal <2.54 [facility] Comment on above: Order Comment: Speci men Type: BLOOD SPECIMENOrdering Facility: [facility] Address: [address] [place] [address] Result Comment: Refe melvince: 1. National Cholesterol Education Program ATP III Guideline At-A-Glance Quick Desk Reference: National Heart, Lung, and Blood [place]. National Institutes of Health. 2001: NIH Publication No. 01-3305. 2. An International Atherosclerosis Society position paper: global recommendations for the management of dyslipidemia: executive summary, Atherosclerosis. 2014: 232(2):410-413. Performed By: #### 2 4331-1, 3015-3, 64576-3 ####[facility] LABCLIA [id number] [place] [address] [place] Cholesterol in VLDL [Mass/Vol] 28 mg/dL Normal <30 [facility] Comment on above: Order Comment: Trevori men Type: BLOOD SPECIMENOrdering Facility: [facility] Address: [address] [place] [address] Performed By: #### 2 4331-1, 3015-3, 13495-8 ####[facility] LABCLIA [id number] [place] [address] [place] Cholesterol non HDL [Mass/Vol] 95 mg/dL Normal <130 [facility] Comment on above: Order Comment: Speci men Type: BLOOD SPECIMENOrdering Facility: [facility] Address: [address] [place] [address] Result Comment: <130 mg/dL, Optimal 130-159 mg/dL, Near optimal/above optimal 160-189 mg/dL, Borderline high 190-219 mg/dL, High >219 mg/dL, Very high Secondary prevention optimal non HDL Cholesterol levels are recommended to be <100 mg/dL Performed By: #### 2 4331-1, 3016-3, 55013-6 ####[facility] LABCLIA [id number] [place] [id number] [place] Cholesterol.total/C holesterol in HDL [Mass ratio] 3.88 {ratio} Normal <5.10 [facility] Comment on above: Order Comment: Speci men Type: BLOOD SPECIMENOrdering Facility: [facility] Address: [address] [place] [address] Performed By: #### 2 4331-1, 3016-3, 62539-3 ####[facility] [id number] [place] [address] [place] FASTING TIME 12.5 hrs Normal [facility] Comment on above: Order Comment: Speci men Type: BLOOD SPECIMENOrdering Facility: [facility] Address: [address] [place] [address] Performed By: #### 2 4331-1, 6-3, 08196-2 ####[facility] [id number] [place] [address] [place] Triglyceride [Mass/Vol] 142 mg/dL Normal <150 [facility] Comment on above: Order Comment: Speci men Type: BLOOD SPECIMENOrdering Facility: [facility] Address: [address] [place] [address] Result Comment: <150 mg/dL, Normal 150-199 mg/dL, Borderline high 200-499 mg/dL, High >499 mg/dL, Very high Performed By: #### 2 4331-1, 3016-3, 98532-5 ####[facility] [id number] [place] [address] [place] TSH SerPl-aCncon 10-09-2023 TSH Qn 4.020 m[IU]/L Normal 0.270-4.200 [facility] Comment on above: Order Comment: Speci men Type: BLOOD SPECIMENOrdering Facility: [facility] Address: [address] [place] [address] Performed By: #### 2 4331-1, 3016-3, 59414-4 ####[facility] LABCLIA [id number] ASHELY JETER [address] [place] 06-21-2023 CNPN Telephone (FAMPWS) ROSA MYERS ([id number]) 1950 F Date Time Provider Department 06/21/23 [facility] During your visit today, we recorded the following information about you: Maciel Busby APRN.CNP 06/21/2023 2:21 PM Signed Please let the patient know that we received paperwork from her cardiology office. TSH is mildly elevated at 4. Previous TSH labs from our office have been normal. I added a TSH onto her upcoming blood work in September for her to get so that we can recheck. Maciel Busby APRN.Cha Obrien MA 06/21/2023 2:29 PM Signed Patient notified of results, verbalizes understanding of instructions. Cha Tinajero MA Allergies As of Date: 06/21/2023 Noted Allergy Reaction DIANA INHIBITORS 07/17/2005 NEOMYCIN 07/17/2005 Date Reviewed: 04/15/2023 Reviewed by: Marietta Escalona Ma - Fully Assessed Reason for Visit: Results [95] Primary Visit Diagnosis:Elevated TSH [R79.89] Order(s):TSH BLD [SQTSH] Order #: [id number] FUTURE Prescriptions as of 06/21/2023 - insulin lispro (HUMALOG KWIKPEN INSULIN) 100 unit/mL INJECT 25 UNITS SUBCUTANEOUSLY THREE TIMES DAILY WITH MEALS DIRECTED - dapagliflozin propanediol (FARXIGA) 10 mg tablet Take 1 tablet by mouth daily with breakfast. - insulin detemir U-100 (LEVEMIR) 100 unit/mL (3 mL) injection pen Inject 70 Units subcutaneously daily with breakfast. - insulin detemir U-100 (LEVEMIR U-100 INSULIN) 100 unit/mL injection Inject 70 Units subcutaneously every morning. - valsartan (DIOVAN) 160 mg tablet Take 1 tablet by mouth once daily. - clopidogrel (PLAVIX) 75 mg tablet Take 1 tablet by mouth once daily. - carvedilol (COREG) 12.5 mg tablet Take 1 tablet by mouth twice daily. - furosemide (LASIX) 40 mg tablet Take 1 tablet by mouth once daily. - Insulin Syringe-Needle U-100 1 mL 29 gauge x 1/2 1 Each once daily. USE ONE SYRINGE FOR EACH INSULIN DOSE/ 1 PER DAY - insulin needles, DISPOSABLE, (PEN NEEDLE) 31 gauge x 5/16 Use 4 times daily to inject insulin - blood sugar diagnostic (BLOOD GLUCOSE TEST) test strip Test blood sugar(s) 3 times daily. Dx: 250.02. Insulin: Yes - blood sugar diagnostic (BLOOD GLUCOSE TEST) test strip Alvina test strips. Test blood sugars once daily as directed. Dx: E11.9. Insulin: Yes - atorvastatin (LIPITOR) 40 mg tablet Take 1 tablet by mouth daily at bedtime. For cholesterol. - pantoprazole DR (PROTONIX) 40 mg tablet Take 1 tablet by mouth once daily. - Blood-Glucose Meter misc 1 Each once daily. - Blood Sugar Diagnostic, Drum (ACCU-CHEK COMPACT TEST) strp Test blood sugar(s) 3 times daily. Dx:E11.9 . Insulin: Yes - loratadine (CLARITIN) 10 mg tablet Take 1 tablet by mouth once daily. - Cholecalciferol, Vitamin D3, 1,000 unit cap Take 1 capsule by mouth once daily. - Insulin Turkey, Disposable, (RELION PEN NEEDLES) 32 x 5/32 ndle Use as directed with insulin pen. 250.00. 4 injections/day. On insulin. - Blood-Glucose Meter, Drum-type (ACCU-CHEK COMPACT PLUS CARE) kit Use as directed - cyanocobalamin (VITAMIN B-12) 1,000 mcg tab Take 1 tablet by mouth once daily. - Aspirin 81 mg Tab Take 81 mg by mouth. Meds Comments as of 01/12/2023: Taking OTC Iron tablet once daily. Problem List As Of Date 06/21/2023 Noted Resolved BENIGN HYPERTENSION [I10] 07/17/2005 Hyperlipidemia [E78.5] 07/17/2005 OSTEOARTHROS NOS-UNSPEC [M19.90] 07/17/2005 Allergic rhinitis [J30.9] 07/17/2005 DIFFUS CYSTIC MASTOPATHY [N60.19] 07/17/2005 Type 2 diabetes mellitus with stage 3b chronic *10/21/2005 Personal history of transient ischemic attack (*11/15/2013 Morbid obesity with body mass index of 40.0-44.*02/09/2018 Stage 3b chronic kidney disease (HCC) [N18.32] 09/30/2021 Anemia due to stage 3b chronic kidney disease (*09/30/2021 Chronic kidney disease, stage 4 (severe) (HCC) *04/15/2023 Encounter Status:Closed by CHA TINAJERO on 06/21/23 Normal [facility] Vital Signs Date Time Vital Sign Value Performing Clinician Ambar leon 05-06-2024 08:43-0400 Body weight 119 kg Amado Lopes MD Work Phone: [facility] 05-06-2024 08:43-0400 Diastolic blood pressure 64 mm[Hg] Amado Lopes MD Work Phone: [facility] 05-06-2024 08:43-0400 Heart rate 68 /min Amado Lopes MD Work Phone: [facility] 05-06-2024 08:43-0400 Respiratory rate 16 /min Amado Lopes MD Work Phone: [facility] 05-06-2024 08:43-0400 SaO2% (BldA) [Mass fraction] 99 % Amado Lopes MD Work Phone: [facility] 05-06-2024 08:43-0400 Systolic blood pressure 97 mm[Hg] Amado Lopes MD Work Phone: [facility] 04-10-2024 18:07-0400 Body weight 120.02 kg Amado Lopes MD Work Phone: [facility] 04-10-2024 18:07-0400 Diastolic blood pressure 80 mm[Hg] Amado Lopes MD Work Phone: [facility] 04-10-2024 18:07-0400 Heart rate 74 /min Amado Lopes MD Work Phone: [facility] 04-10-2024 18:07-0400 Respiratory rate 16 /min Amado Lopes MD Work Phone: [facility] 04-10-2024 18:07-0400 Systolic blood pressure 140 mm[Hg] Amado Lopes MD Work Phone: [facility] 04-15-2023 15:40-0400 Body weight 116.57 kg Amado Lopes MD Work Phone: [facility] 04-15-2023 15:40-0400 Diastolic blood pressure 70 mm[Hg] Amado Lopes MD Work Phone: [facility] 04-15-2023 15:40-0400 Heart rate 70 /min Amado Lopes MD Work Phone: [facility] 04-15-2023 15:40-0400 Respiratory rate 20 /min Amado Lopes MD Work Phone: [facility] 04-15-2023 15:40-0400 Systolic blood pressure 128 mm[Hg] Amado Lopes MD Work Phone: [facility] 07-13-2022 15:42-0400 Body weight 114.31 kg Amado Lopes MD Work Phone: [facility] 07-13-2022 15:42-0400 Diastolic blood pressure 80 mm[Hg] Amado Lopes MD Work Phone: [facility] 07-13-2022 15:42-0400 Heart rate 64 /min Amado Lopes MD Work Phone: [facility] 07-13-2022 15:42-0400 Respiratory rate 20 /min Amado Lopes MD Work Phone: [facility] 07-13-2022 15:42-0400 Systolic blood pressure 124 mm[Hg] Amado Lopes MD Work Phone: [facility] 04-07-2022 15:22-0400 Body weight 118.39 kg Amado Lopes MD Work Phone: [facility] 04-07-2022 15:22-0400 Diastolic blood pressure 68 mm[Hg] Amado Lopes MD Work Phone: [facility] 04-07-2022 15:22-0400 Heart rate 78 /min Amado Lopes MD Work Phone: [facility] 04-07-2022 15:22-0400 Respiratory rate 20 /min Amado Lopes MD Work Phone: [facility] 04-07-2022 15:22-0400 Systolic blood pressure 126 mm[Hg] Amado Lopes MD Work Phone: [facility] Encounters Encounter Date Encounter Type Care Provider Facility Start: 06-16-2024 End: 06-16-2024 Telephone encounter Amado Lopes MD Work Phone: [facility] [place] Comment on above: Fax Last OV Note Start: 06-06-2024 End: 06-06-2024 Refill Amado Lopes MD Work Phone: [facility] [place] Comment on above: Refill Request Start: 06-05-2024 End: 06-05-2024 Telephone encounter Amado Lopes MD Work Phone: Family [facility] Comment on above: Opened In Error Start: 06-02-2024 End: 06-02-2024 Telephone encounter Amado Lopes MD Work Phone: [facility] [place] Comment on above: Fax Request Start: 05-06-2024 End: 05-06-2024 ambulatory AMADO LOPES Facility:[facility] Start: 05-06-2024 End: 05-06-2024 Patient encounter procedure Amado Lopes MD Work Phone: [facility] [place] Comment on above: 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 2 diabetes mellitus, unspecified ulcer stage (HCC) (Primary Dx); Morbid obesity with body mass index of 40.0-44.9 in adult (HCC); Essential hypertension, benign; Type 2 diabetes mellitus with chronic kidney disease, with long-term current use of insulin, unspecified CKD stage (HCC) Start: 05-03-2024 [facility] [place] Start: 05-03-2024 Patient encounter procedure Jessica José Miguel Yen MA [facility] Comment on above: Population Health Na vigation Outreach ([facility]adeen [facility] - [place] [facility]) Start: 04-18-2024 Telephone encounter Amado auguste MD Work Phone: [facility] Comment on above: Results Start: 04-15-2024 End: 04-15-2024 ambulatory AMADO LOPES Facility:[facility] Start: 04-10-2024 End: 04-10-2024 [facility] Start: 04-10-2024 End: 04-10-2024 Patient encounter procedure Amado Lopes MD Work Phone: [facility] Comment on above: Hyperlipidemia, unsp ecified hyperlipidemia type (Primary Dx); Chronic kidney disease, stage 4 (severe) (HCC); Heart failure, unspecified HF chronicity, unspecified heart failure type (HCC); Morbid obesity with body mass index of 40.0-44.9 in adult (HCC); Type 2 diabetes mellitus with stage 3b chronic kidney disease, without long-term current use of insulin (HCC); Essential hypertension, benign; Anemia, unspecified type; Bilateral leg edema; Cellulitis of skin; Other depression Start: 04-04-2024 Telephone encounter Maciel parker APRN.CNP Work Phone: [facility] Comment on above: Appointment Start: 02-28-2024 ambulatory Jessica Yen MA [employer] [facility] [place] Start: 02-28-2024 Patient encounter procedure Jessica Yen MA [employer] [facility] Comment on above: Population Health Na vigation Outreach (Nadeen [facility] CURRENT ROSTER workbenc - [facility], Care gaps, HCC gap closure - [place] [facility]) Start: 02-22-2024 Refill Amado zayas MD Work Phone: [facility] [place] Comment on above: Refill Request Start: 01-20-2024 Refill Amado zayas MD Work Phone: Family [facility] [place] Comment on above: Refill Request Start: 01-18-2024 ambulatory Jessica Yen MA [facility] [place] Start: 01-18-2024 Patient encounter procedure Jessica Yen MA [facility] Comment on above: Population Health Na vigtrinity health Outreach (Nadeen Ring workbenc - [facility], Care gaps, HCC gap closure - [place] [facility]) Start: 01-13-2024 Refill Amado zayas MD Work Phone: [facility] [place] Comment on above: Refill Request Start: 12-02-2023 Refill Amado zayas MD Work Phone: [facility] [place] Comment on above: Refill Request Start: 11-26-2023 ambulatory Amado zayas MD Work Phone: [facility] Comment on above: Allied Health Visit (Medication Adherence Outreach ) Start: 10-09-2023 End: 10-09-2023 ambulatory AMADO LOPES Facility:[facility] Start: 06-21-2023 Telephone encounter Maciel parker APRN.CNP Work Phone: [facility] [place] Comment on above: Results Start: 06-14-2023 Refill Amado zayas MD Work Phone: [facility] [place] Comment on above: Refill Request Start: 04-15-2023 End: 04-15-2023 Patient encounter procedure Amado Lopes MD Work Phone: [facility] [place] Comment on above: 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, without long-term current use of insulin (HCC) (Primary Dx); Essential hypertension, benign; Hyperlipidemia, unspecified hyperlipidemia type; Chronic kidney disease, stage 4 (severe) ([facility]); Congestive heart failure, unspecified HF chronicity, unspecified heart failure type ([facility]); Bilateral leg edema; H/O: GI bleed; Anemia, unspecified type; Skin lesion; Morbid obesity with body mass index of 40.0-44.9 in adult (HCC) Start: 02-24-2023 ambulatory Amado zayas MD Work Phone: [facility] [place] Start: 01-25-2023 ambulatory Samia Hickman [facility] Comment on above: Population Health Na vigation Outreach ([place] Care Gap) Start: 01-18-2023 Telephone encounter Amado auguste MD Work Phone: [facility] [place] Comment on above: Medication Problem Start: 12-23-2022 ambulatory Amado zayas MD Work Phone: [facility] Comment on above: Allied Health Visit (Medication Adherence Outreach/) Start: 12-14-2022 Refill Amado zayas MD Work Phone: [facility] [place] Comment on above: Refill Request Start: 10-30-2022 Telephone encounter Amado auguste MD Work Phone: [facility] [place] Comment on above: Medication Problem Start: 07-15-2022 Refill Amado zayas MD Work Phone: [facility] [place] Comment on above: Refill Request Start: 07-14-2022 Refill Amado zayas MD Work Phone: [facility] [place] Comment on above: Refill Request Start: 07-13-2022 End: 07-13-2022 Patient encounter procedure Amado Lopes MD Work Phone: Family [facility] [place] Comment on above: Controlled type 2 di abetes mellitus without complication, with long-term current use of insulin (HCC) (Primary Dx); Essential hypertension, benign; Stage 3b chronic kidney disease (HCC); Hyperlipidemia, unspecified hyperlipidemia type; Congestive heart failure, unspecified HF chronicity, unspecified heart failure type (HCC); SOB (shortness of breath); Bilateral leg edema; Anemia, unspecified type; H/O: GI bleed Start: 04-07-2022 End: 04-07-2022 Patient encounter procedure Amado Lopes MD Work Phone: [facility] [place] Comment on above: Controlled type 2 di abetes mellitus without complication, with long-term current use of insulin (HCC) (Primary Dx); Essential hypertension, benign; Stage 3b chronic kidney disease (HCC); Hyperlipidemia, unspecified hyperlipidemia type; Congestive heart failure, unspecified HF chronicity, unspecified heart failure type (HCC); Bilateral leg edema; SOB (shortness of breath); Anemia, unspecified type; H/O: GI bleed Start: 03-16-2022 ambulatory Samia Mitchell C Directly Comment on above: Population Health Na vigation Outreach ([place] [facility]) Start: 03-04-2022 ambulatory Amado zayas MD Work Phone: Internal Medicine [facility] [place] Procedures Date Procedure Procedure Detail Performing Clinician Start: 04-10-2024 Adult depression scr eening assessment Amado Lopes MD Work Phone: Start: 04-07-2022 Adult depression scr eening assessment Amado Lopes MD Work Phone: Start: 02-26-2021 Adult depression scr eening assessment Amado Lopes MD Work Phone: Start: 08-10-2016 Mammography Amado mccracken MD Work Phone: Plan of Treatment Date Care Activity Detail Author Start: 05-06-2025 Annual PCP Team Hat Body Sorter dnaiel Disease Visit Annual PCP Team Chronic Disease Visit [facility] Start: 05-06-2025 BP Controlled (<130/80) BP Controlle d (<130/80) [facility] Start: 04-15-2025 Complete blood count Hemoglobin/Chon tocrit [facility] Start: 04-15-2025 Creatinine measurement Serum Creatin ine [facility] Start: 04-15-2025 Hepatitis B surface antibody level LDL Cholesterol [facility] Start: 04-10-2025 Annual PCP Team Hat Body Sorter daniel Disease Visit Annual PCP Team Chronic Disease Visit [facility] Start: 04-10-2025 Anxiety Screening Anxiety Screening [facility] Start: 04-10-2025 Covid-19 Vaccine () Covid-19 Vaccine () [facility] Comment on above: Postponed from 05/28 (Declined at this time) Start: 04-10-2025 Depression Screening Depression Scre ening [facility] Start: 10-16-2024 Hemoglobin A1c measurement HbA1C [facility] Start: 10-09-2024 Complete blood count Hemoglobin/Chon tocrit [facility] Start: 10-09-2024 Creatinine measurement Serum Creatin ine [facility] Start: 10-09-2024 Hepatitis B surface antibody level LDL Cholesterol [facility] Start: 07-11-2024 End: 07-11-2024 Patient encounter procedure [facility] [place] Comment on above: follow up Annual Wellness - fo llow up Start: 05-28-2024 Covid-19 Vaccine () Covid-19 Vaccine () [facility] Start: 05-28-2024 Influenza vaccination C [facility] Start: 04-15-2024 3 comp foot exam completed DIABETIC FOOT EXAM [facility] Start: 04-15-2024 ANNUAL PCP TEAM [facility] DANIEL DISEASE VISIT ANNUAL PCP TEAM CHRONIC DISEASE VISIT [facility] Start: 04-15-2024 BP CONTROLLED (<130/80) BP CONTROLLE D (<130/80) [facility] Start: 04-15-2024 COLORECTAL CANCER SCREENING COLORECTAL CANCER SCREENING [facility] Comment on above: Postponed from 03/19 (Declined at this time) Start: 04-15-2024 COVID-19 VACCINE (#1) COVID-19 VACCI NE (#1) [facility] Comment on above: Postponed from 09/18 (Declined at this time) Start: 04-15-2024 Diabetic foot examination Diabetic Foot Exam [facility] Start: 04-15-2024 Mammography MAMMOGRAM [facility] Comment on above: Postponed from 08/10 (Declined at this time) Start: 04-15-2024 Pneumococcal Vaccine : 65+ (3 - PPSV23 or PCV20) Pneumococcal Vaccine: 65+ (3 - PPSV23 or PCV20) [facility] Comment on above: Postponed from 10/25 (Declined at this time) Start: 04-15-2024 Pneumococcal Vaccine : 65+ (3 of 3 - PPSV23 or PCV20) Pneumococcal Vaccine: 65+ (3 of 3 - PPSV23 or PCV20) [facility] Comment on above: Postponed from 10/25 (Declined at this time) Start: 04-15-2024 PNEUMOCOCCAL: 65+ (3 - PPSV23 or PCV20) PNEUMOCOCCAL: 65+ (3 - PPSV23 or PCV20) [facility] Comment on above: Postponed from 10/25 (Declined at this time) Start: 04-15-2024 Screening for malign ant neoplasm of colon Colorectal Cancer Screening [facility] Comment on above: Postponed from 03/19 (Declined at this time) Start: 04-15-2024 SHINGRIX VACCINE (1 of 2) SHINGRIX VACCINE (1 of 2) [facility] Comment on above: Postponed from 03/19 (Declined at this time) Start: 04-10-2024 End: 04-10-2024 Patient encounter procedure 04/10/2024 6:00 PM EDT Office Visit [facility] [place] [address], [place] [id number] Amado Lopes MD [address] [place], [place] [id number] Medicare Wellness [facility] [place] Comment on above: Medicare Wellness Start: 04-10-2024 End: 07-10-2024 CBC panel - Blood by Automated count COMPLETE BLOOD COUNT Lab Routine Essential hypertension, benign Anemia, unspecified type Expected: 04/10/2024 (Approximate), Expires: 07/10/2024 [facility] Comment on above: Expected: 04/10/2024 (Approximate), Expires: 07/10/2024 Start: 04-10-2024 End: 07-10-2024 Comprehensive metabolic 2000 panel - Serum or Plasma COMPREHENSIVE METABOLIC PANEL Lab Routine Type 2 diabetes mellitus with stage 3b chronic kidney disease, without long-term current use of insulin (HCC) Hyperlipidemia, unspecified hyperlipidemia type Expected: 04/10/2024 (Approximate), Expires: 07/10/2024 [facility] Work Phone: Comment on above: Expected: 04/10/2024 (Approximate), Expires: 07/10/2024 Start: 04-10-2024 End: 07-10-2024 Hemoglobin A1c in Blood HEMOGLOBIN A1C Lab Routine Type 2 diabetes mellitus with stage 3b chronic kidney disease, without long-term current use of insulin (HCC) Expected: 04/10/2024 (Approximate), Expires: 07/10/2024 [facility] Comment on above: Expected: 04/10/2024 (Approximate), Expires: 07/10/2024 Start: 04-10-2024 Hepatitis B surface antibody level LDL CHOLESTEROL [facility] Start: 04-10-2024 End: 07-10-2024 Lipid 1996 panel - Serum or Plasma LIPID PANEL BASIC Lab Routine Type 2 diabetes mellitus with stage 3b chronic kidney disease, without long-term current use of insulin (HCC) Hyperlipidemia, unspecified hyperlipidemia type Expected: 04/10/2024 (Approximate), Expires: 07/10/2024 [facility] Comment on above: Expected: 04/10/2024 (Approximate), Expires: 07/10/2024 Start: 04-10-2024 SERUM CREATININE SERUM CREATININE [facility] Start: 04-08-2024 Hemoglobin A1c measurement HbA1C [facility] Start: 01-13-2024 ANNUAL PCP TEAM [facility] DANIEL DISEASE VISIT ANNUAL PCP TEAM CHRONIC DISEASE VISIT [facility] Start: 01-13-2024 BP CONTROLLED (<130/80) BP CONTROLLE D (<130/80) [facility] Start: 01-02-2024 HEMOGLOBIN/HEMATOCRIT HEMOGLOBIN/HEM ATOCRIT [facility] Start: 01-02-2024 Hepatitis B screening Urine Al bumin:Creatinine Ratio [facility] Start: 01-02-2024 Hepatitis B surface antibody level LDL CHOLESTEROL [facility] Start: 01-02-2024 SERUM CREATININE SERUM CREATININE [facility] Start: 10-16-2023 End: 12-16-2023 CBC W Auto Differential panel - Blood CBC + DIFF Lab Routine H/O: GI bleed Anemia, unspecified type Expected: 10/16/2023 (Approximate), Expires: 12/16/2023 [facility] Work Phone: Comment on above: Expected: 10/16/2023 (Approximate), Expires: 12/16/2023 Start: 10-16-2023 End: 12-16-2023 Comprehensive metabolic 2000 panel - Serum or Plasma COMP METABOLIC PANEL Lab Routine Chronic kidney disease, stage 4 (severe) (HCC) Type 2 diabetes mellitus with stage 3b chronic kidney disease, without long-term current use of insulin (HCC) Hyperlipidemia, unspecified hyperlipidemia type Essential hypertension, benign Expected: 10/16/2023 (Approximate), Expires: 12/16/2023 [facility] Work Phone: Comment on above: Expected: 10/16/2023 (Approximate), Expires: 12/16/2023 Start: 10-16-2023 End: 12-16-2023 Hemoglobin A1c in Blood HGB A1C Lab Routine Type 2 diabetes mellitus with stage 3b chronic kidney disease, without long-term current use of insulin (HCC) Expected: 10/16/2023 (Approximate), Expires: 12/16/2023 [facility] Work Phone: Comment on above: Expected: 10/16/2023 (Approximate), Expires: 12/16/2023 Start: 10-16-2023 End: 12-16-2023 Lipid 1996 panel - Serum or Plasma LIPID PANEL BASIC Lab Routine Hyperlipidemia, unspecified hyperlipidemia type Essential hypertension, benign Expected: 10/16/2023 (Approximate), Expires: 12/16/2023 [facility] Work Phone: Comment on above: Expected: 10/16/2023 (Approximate), Expires: 12/16/2023 Start: 10-16-2023 End: 12-16-2023 Thyrotropin [Units/volume] in Serum or Plasma TSH BLD Lab Routine Elevated TSH Expected: 10/16/2023 (Approximate), Expires: 12/16/2023 [facility] Work Phone: Comment on above: Expected: 10/16/2023 (Approximate), Expires: 12/16/2023 Start: 10-11-2023 Hemoglobin A1c/Hemoglobin.total in Blood HBA1C [facility] Start: 09-27-2023 Advance Directive Discussion Advance Directive Discussion [facility] Start: 09-27-2023 Behavioral Health Screening Behavioral Health Screening [facility] Start: 09-27-2023 Depression Assessment Depression Ass essment [facility] Start: 07-13-2023 ANNUAL PCP TEAM [facility] DANIEL DISEASE VISIT ANNUAL PCP TEAM CHRONIC DISEASE VISIT [facility] Start: 07-06-2023 HEMOGLOBIN/HEMATOCRIT HEMOGLOBIN/HEM ATOCRIT [facility] Start: 07-06-2023 Hepatitis B surface antibody level LDL CHOLESTEROL [facility] Start: 07-06-2023 SERUM CREATININE SERUM CREATININE [facility] Start: 05-28-2023 Covid-19 Vaccine () Covid-19 Vaccine () [facility] Start: 05-28-2023 [facility] Start: 04-07-2023 Adult depression screening assessment DEPRESSION SCREENING [facility] Start: 04-07-2023 ANNUAL PCP TEAM [facility] DANIEL DISEASE VISIT ANNUAL PCP TEAM CHRONIC DISEASE VISIT [facility] Start: 04-07-2023 BP CONTROLLED (<130/80) BP CONTROLLE D (<130/80) [facility] Start: 04-07-2023 COVID-19 VACCINE (#1) COVID-19 VACCI NE (#1) [facility] Comment on above: Postponed from 09/18 (Declined at this time) Start: 04-02-2023 Hemoglobin A1c/Hemoglobin.total in Blood HBA1C [facility] Start: 04-02-2023 HEMOGLOBIN/HEMATOCRIT HEMOGLOBIN/HEM ATOCRIT [facility] Start: 04-02-2023 Hepatitis B surface antibody level LDL CHOLESTEROL [facility] Start: 04-02-2023 SERUM CREATININE SERUM CREATININE [facility] Start: 03-26-2023 Influenza vaccination INFLUENZA (#1) [facility] Comment on above: Postponed from 05/28 (Declined at this time) Start: 01-11-2023 End: 03-13-2023 ALBUMIN/CREAT RATIO RND UR ALBUMIN/CREAT RATIO RND UR Lab Routine Controlled type 2 diabetes mellitus without complication, with long-term current use of insulin (HCC) Essential hypertension, benign Stage 3b chronic kidney disease (HCC) Expected: 01/11/2023 (Approximate), Expires: 03/13/2023 [facility] Work Phone: Comment on above: Expected: 01/11/2023 (Approximate), Expires: 03/13/2023 Start: 01-11-2023 End: 03-13-2023 CBC W Auto Differential panel - Blood CBC + DIFF Lab Routine Essential hypertension, benign Stage 3b chronic kidney disease (HCC) Expected: 01/11/2023 (Approximate), Expires: 03/13/2023 [facility] Work Phone: Comment on above: Expected: 01/11/2023 (Approximate), Expires: 03/13/2023 Start: 01-11-2023 End: 03-13-2023 Comprehensive metabolic 2000 panel - Serum or Plasma COMP METABOLIC PANEL Lab Routine Controlled type 2 diabetes mellitus without complication, with long-term current use of insulin (HCC) Essential hypertension, benign Hyperlipidemia, unspecified hyperlipidemia type Expected: 01/11/2023 (Approximate), Expires: 03/13/2023 [facility] Work Phone: Comment on above: Expected: 01/11/2023 (Approximate), Expires: 03/13/2023 Start: 01-11-2023 End: 03-13-2023 Hemoglobin A1c in Blood HGB A1C Lab Routine Controlled type 2 diabetes mellitus without complication, with long-term current use of insulin (HCC) Expected: 01/11/2023 (Approximate), Expires: 03/13/2023 [facility] Work Phone: Comment on above: Expected: 01/11/2023 (Approximate), Expires: 03/13/2023 Start: 01-11-2023 End: 03-13-2023 Lipid 1996 panel - Serum or Plasma LIPID PANEL BASIC Lab Routine Essential hypertension, benign Hyperlipidemia, unspecified hyperlipidemia type Expected: 01/11/2023 (Approximate), Expires: 03/13/2023 [facility] Work Phone: Comment on above: Expected: 01/11/2023 (Approximate), Expires: 03/13/2023 Start: 10-06-2022 Hemoglobin A1c/Hemoglobin.total in Blood HBA1C [facility] Start: 10-03-2022 Hemoglobin A1c/Hemoglobin.total in Blood HBA1C [facility] Start: 09-30-2022 ANNUAL PCP TEAM [facility] DANIEL DISEASE VISIT ANNUAL PCP TEAM CHRONIC DISEASE VISIT [facility] Start: 09-30-2022 BP CONTROLLED (<130/80) BP CONTROLLE D (<130/80) [facility] Start: 09-27-2022 ADVANCE DIRECTIVE DISCUSSION ADVANCE DIRECTIVE DISCUSSION [facility] Start: 09-27-2022 DEPRESSION ASSESSMENT DEPRESSION ASS ESSMENT [facility] Start: 09-22-2022 HEMOGLOBIN/HEMATOCRIT HEMOGLOBIN/HEM ATOCRIT [facility] Start: 09-22-2022 Hepatitis B surface antibody level LDL CHOLESTEROL [facility] Start: 09-22-2022 SERUM CREATININE SERUM CREATININE [facility] Start: 07-08-2022 End: 09-07-2022 CBC W Auto Differential panel - Blood CBC + DIFF Lab Routine Essential hypertension, benign Stage 3b chronic kidney disease (HCC) Anemia, unspecified type Expected: 07/08/2022, Expires: 09/07/2022 [facility] Work Phone: Comment on above: Expected: 07/08/2022 , Expires: 09/07/2022 Start: 07-08-2022 End: 09-07-2022 Comprehensive metabolic 2000 panel - Serum or Plasma COMP METABOLIC PANEL Lab Routine Controlled type 2 diabetes mellitus without complication, with long-term current use of insulin (HCC) Essential hypertension, benign Hyperlipidemia, unspecified hyperlipidemia type Stage 3b chronic kidney disease (HCC) Expected: 07/08/2022, Expires: 09/07/2022 [facility] Work Phone: Comment on above: Expected: 07/08/2022 , Expires: 09/07/2022 Start: 07-08-2022 End: 09-07-2022 Hemoglobin A1c in Blood HGB A1C Lab Routine Controlled type 2 diabetes mellitus without complication, with long-term current use of insulin (HCC) Expected: 07/08/2022, Expires: 09/07/2022 [facility] Work Phone: Comment on above: Expected: 07/08/2022 , Expires: 09/07/2022 Start: 07-08-2022 End: 09-07-2022 Lipid 1996 panel - Serum or Plasma LIPID PANEL BASIC Lab Routine Essential hypertension, benign Hyperlipidemia, unspecified hyperlipidemia type Expected: 07/08/2022, Expires: 09/07/2022 [facility] Work Phone: Comment on above: Expected: 07/08/2022 , Expires: 09/07/2022 Start: 05-29-2022 3 comp foot exam completed DIABETIC FOOT EXAM [facility] Start: 05-28-2022 Influenza vaccination C [facility] Start: 03-23-2022 Hemoglobin A1c/Hemoglobin.total in Blood HBA1C [facility] Start: 02-26-2022 Adult depression screening assessment DEPRESSION SCREENING [facility] Start: 09-27-2021 ADVANCE DIRECTIVE DISCUSSION ADVANCE DIRECTIVE DISCUSSION [facility] Start: 06-03-2019 COLORECTAL CANCER SCREENING COLORECTAL CANCER SCREENING [facility] Start: 06-03-2019 FECAL OCCULT BLOOD FECAL OCCULT BLOO D [facility] Start: 06-03-2019 Screening for malign ant neoplasm of colon Fecal Occult Blood [facility] Start: 03-11-2019 Glaucoma screening Dilated Retinal E xam [facility] Start: 03-11-2019 Hepatitis C antibody , confirmatory test DILATED RETINAL EXAM [facility] Start: 08-10-2017 Mammography MAMMOGRAM [facility] Start: 10-25-2015 Pneumococcal Vaccine : 65+ (3 of 3 - PPSV23 or PCV20) Pneumococcal Vaccine: 65+ (3 of 3 - PPSV23 or PCV20) [facility] Start: 10-25-2015 PNEUMOCOCCAL: 65+ (3 - PPSV23 if available, else PCV20) PNEUMOCOCCAL: 65+ (3 - PPSV23 if available, else PCV20) [facility] Start: 10-25-2015 PNEUMOCOCCAL: 65+ (3 - PPSV23 or PCV20) PNEUMOCOCCAL: 65+ (3 - PPSV23 or PCV20) [facility] Start: 2008 Hepatitis B Vaccine (1 of 3 - Risk 3-dose series) Hepatitis B Vaccine (1 of 3 - Risk 3-dose series) [facility] Start: 2008 RSV Vaccine (1 - 1-d ose 60+ series) RSV Vaccine (1 - 1-dose 60+ series) [facility] Start: 1998 SHINGRIX VACCINE (1 of 2) SHINGRIX VACCINE (1 of 2) [facility] Start: 1993 COLOGUARD (FIT-DNA) COLOGUARD (FIT-D NA) [facility] Start: 1993 Colonoscopy COLONOSCOPY [facility] Start: [address] COLONOGRAPHY [facility] Start: 1993 Screening for malign ant neoplasm of colon [facility] Start: 1993 SIGMOIDOSCOPY SIGMOIDOSCOPY [facility] Start: 1967 Urine microalbumin profile [facility] Start: 1966 BP CONTROLLED (<130/80) BP CONTROLLE D (<130/80) [facility] Start: 1953 COVID-19 VACCINE (#1) COVID-19 VACCI NE (#1) [facility] End: 03-25-2024 BUSTER SCREENING BUSTER SCREENING Radiology Routine Encounter for screening mammogram for breast cancer 1 Occurrences starting 02/24/2023 until 03/25/2024 [facility] Work Phone: Comment on above: 1 Occurrences starti ng 02/24/2023 until 03/25/2024 End: 04-03-2023 Screening mammography bi 2-view breast inc cad BUSTER SCREENING Radiology Routine Encounter for screening mammogram for breast cancer 1 Occurrences starting 03/04/2022 until 04/03/2023 [facility] Work Phone: Comment on above: 1 Occurrences starti ng 03/04/2022 until 04/03/2023 [facility] Immunizations Immunization Date Immunization Notes Care Provider Mirian coats 06-03-2018 influenza virus vacc ine, unspecified formulation Amado Lopes MD Work Phone: [facility] 10-25-2014 pneumococcal conjuga te vaccine, 13 valent Amado Lopes MD Work Phone: [facility] 07-08-2010 influenza virus vacc ine, unspecified formulation Amado Lopes MD Work Phone: [facility] 07-17-2005 influenza virus vacc ine, unspecified formulation Amado Lopes MD Work Phone: [facility] 07-17-2005 pneumococcal polysaccharide vaccine, 23 valent Amado Lopes MD Work Phone: [facility] 06-27-2003 pneumococcal vaccine , unspecified formulation Amado Lopes MD Work Phone: [facility] Payers Date Payer Category Payer Unknown [employer]M BLUE CROS S AND BLUE SHIELD AN[employer]M MED[employer] ACCESS [id number] 2019-Present [phone] [address] [place] [address] O [id number] 2019 Unknown [id number] 2019 Medicare [id number] Social History Date Type Detail Facility Start: 07-13-2022 Tobacco smoking stat us [facility] Ex-smoker [facility] Start: 09-30-2021 End: 05-06-2024 Alcohol intake Current non-drinker of alcohol (finding) [facility] Start: 12-31-2009 End: 07-13-2022 Tobacco Comment Quit 1980s [facility] Start: 1950 Sex Assigned At Not on file C [facility] Start: 02-22-2022 End: 04-07-2022 Exposure to SARS-CoV-2 (event) Not sure [facility] Work Phone: History of tobacco use Current smoker [facility] Start: 07-13-2022 Tobacco use and exposure Smokeless tobacco non-user [facility] Start: 04-15-2023 End: 04-10-2024 History of Social function [facility] Work Phone: Start: 04-15-2023 End: 04-10-2024 Tobacco use panel [facility] Work Phone: Adult Depression Screening Assessment 2 [facility] Work Phone: Medical Equipment Procedure Code Equipment Code Equipment Origin al Text Equipment Identifier Dates [id number], [id number], [id number], [id number] Start: 08-10-2016 End: 07-15-2022 Comment on above: Test blood sugar(s) 3 times daily. Dx: 250.02. Insulin: Yes Alvina test strips. T est blood sugars once daily as directed. Dx: E11.9. Insulin: Yes Use 4 times daily to inject insulin 1 Each once daily. U SE ONE SYRINGE FOR EACH INSULIN DOSE/ 1 PER DAY Clinical Notes 09-30-2021 to 06-16-2024 Telephone Encounter - Sanaz Lucas RN - 06/16/2024 11:37 AM EDTTelephone Encounter - Sanaz Lucas RN - 06/16/2024 11:37 AM Amado Asencio MD - 05/06/2024 8:40 AM EDT Note Date & Type Note Facility 06-16-2024 Telephone encount er Note Patricia [facility] called in and wanted Pts last OV note faxed over. She states the only diagnosis they have is foot ulcer, and she wanted more diagnoses to put down. Faxed last OV note to fax # [phone]. [facility] 06-16-2024 Miscellaneous Notes Formattin g of this note might be different from the original. Patricia [facility] called in and wanted Pts last OV note faxed over. She states the only diagnosis they have is foot ulcer, and she wanted more diagnoses to put down. Faxed last OV note to fax # [phone]. documented in this encounter [facility] 06-06-2024 Telephone encount er Note The following approved medication requests have been transmitted electronically. Requested Prescriptions Pending Prescriptions Disp Refills insulin lispro (HUMALOG KWIKPEN INSULIN) 100 unit/mL 30 Each 3 Sig: INJECT 25 UNITS SUBCUTANEOUSLY THREE TIMES DAILY WITH MEALS DIRECTED Maciel Busby APRN.CNP [facility] 06-06-2024 Miscellaneous Notes Formattin g of this note is different from the original. The following approved medication requests have been transmitted electronically. Requested Prescriptions Pending Prescriptions Disp Refills insulin lispro (HUMALOG KWIKPEN INSULIN) 100 unit/mL 30 Each 3 Sig: INJECT 25 UNITS SUBCUTANEOUSLY THREE TIMES DAILY WITH MEALS DIRECTED Maciel Busby APRN.CNP Prescription Refill Information The patient has been identified by name and date of : Yes Caregiver verified no other encounters exist for this prescription request: Yes Caregiver confirmed with patient/requestor that no other refills are due, in the near future, with this provider at this time: Yes The last office visit in the department: 05/06/24 Does the patient have a future office visit with this provider/department: Yes Requested Prescriptions Pending Prescriptions Disp Refills insulin lispro (HUMALOG KWIKPEN INSULIN) 100 unit/mL 30 Each 3 Sig: INJECT 25 UNITS SUBCUTANEOUSLY THREE TIMES DAILY WITH MEALS DIRECTED Pushpa Neff [facility] June 06, 2024 10:33 AM documented in this encounter [facility] 06-06-2024 Telephone encount er Note Prescription Refill Information The patient has been identified by name and date of : Yes Caregiver verified no other encounters exist for this prescription request: Yes Caregiver confirmed with patient/requestor that no other refills are due, in the near future, with this provider at this time: Yes The last office visit in the department: 05/06/24 Does the patient have a future office visit with this provider/department: Yes Requested Prescriptions Pending Prescriptions Disp Refills insulin lispro (HUMALOG KWIKPEN INSULIN) 100 unit/mL 30 Each 3 Sig: INJECT 25 UNITS SUBCUTANEOUSLY THREE TIMES DAILY WITH MEALS DIRECTED Pushpa Neff [facility] June 06, 2024 10:33 AM [facility] 06-02-2024 Telephone encount er Note Julieth with [facility] calling and requesting most recent office visit for patient be faxed to them at [phone] for continuity of care for Home Health Nursing services. Faxed as requested. Aga Mckeon RN [facility] 06-02-2024 Miscellaneous Notes Formattin g of this note might be different from the original. Julieth with [facility] calling and requesting most recent office visit for patient be faxed to them at [phone] for continuity of care for Home Health Nursing services. Faxed as requested. Aga Mckeon RN documented in this encounter [facility] 05-06-2024 History of Presen t illness Narrative Chief Complaint Patient presents with: Wound Evaluation: Bottom of right foot x 1 week HPI Rosa Myers is a 74 year old female who presents here today for wound. Pt has wound to Bottom of right foot x 1 week just under the toe. is changing the dress about once daily to every other day. Has some drainage. Doesn't seem to be getting any better, getting bigger. Pain with pressure. Walking, standing. No injury that she is aware of. Right lower leg redness. Edema: taurus legs, no improvement since increasing Lasix to 80 mg daily. Does not improve over night or with elevation. Past medical history, appointments, medications, allergies reviewed. Previous Medical History PAST MEDICAL HISTORY : Allergic rhinitis due to other allergen No date: Essential hypertension, benign No date: Type II or unspecified type diabetes mellitus without mention of complication, uncontrolled Previous Surgical History PAST SURGICAL HISTORY 10/26/2017: CATARACT EXTRACTION HX; Right 02/24/2022: EGD W/O [facility] SPEC VARICIES INJ; N/A 1987: LIG/TRNSXJ FLP TUBE ABDL/VAG APPR UNI/BI Comment: Tubal ligation 1995: LIGJ DIVJ &/EXCJ VARICOSE VEIN CLUSTER 1 LEG Comment: Varicose Vein Surgery No date: TONSILLECTOMY PRIMARY/SECONDARY <AGE 10 Comment: Tonsillectomy Family History FAMILY HISTORY Problem Relation Age of Onset Diabetes Father Coronary Artery Disease Father Coronary Artery Disease Mother CABG age 80 Cataract Sister Blindness Sister Blindness Other Patient Allergies ALLERGIES Allergen Reactions Diana Inhibitors Neomycin Current Medications Current Outpatient Medications on File Prior to Visit Medication Sig dapagliflozin propanediol (FARXIGA) 10 mg tablet Take 1 tablet by mouth daily with breakfast. clotrimazole-betamethasone (LOTRISONE) cream Apply to affected area two times a day. furosemide (LASIX) 40 mg tablet Take 2 tablets by mouth once daily. FLUoxetine (PROZAC) 10 mg capsule Take 1 capsule by mouth once daily. carvedilol (COREG) 12.5 mg tablet Take 1 tablet by mouth two times a day. insulin detemir U-100 (LEVEMIR) 100 unit/mL (3 mL) injection pen Inject 70 Units subcutaneously daily with breakfast. insulin detemir U-100 (LEVEMIR U-100 INSULIN) 100 unit/mL injection Inject 70 Units subcutaneously every morning. valsartan (DIOVAN) 160 mg tablet Take 1 tablet by mouth once daily. insulin lispro (HUMALOG KWIKPEN INSULIN) 100 unit/mL INJECT 25 UNITS SUBCUTANEOUSLY THREE TIMES DAILY WITH MEALS DIRECTED atorvastatin (LIPITOR) 40 mg tablet Take 1 tablet by mouth daily at bedtime. For cholesterol. blood sugar diagnostic (BLOOD GLUCOSE TEST) test strip Alvina test strips. Test blood sugars once daily as directed. Dx: E11.9. Insulin: Yes clopidogrel (PLAVIX) 75 mg tablet Take 1 tablet by mouth once daily. Insulin Syringe-Needle U-100 1 mL 29 gauge x 1/2 1 Each once daily. USE ONE SYRINGE FOR EACH INSULIN DOSE/ 1 PER DAY insulin needles, DISPOSABLE, (PEN NEEDLE) 31 gauge x 5/16 Use 4 times daily to inject insulin blood sugar diagnostic (BLOOD GLUCOSE TEST) test strip Test blood sugar(s) 3 times daily. Dx: 250.02. Insulin: Yes Blood-Glucose Meter misc 1 Each once daily. Blood Sugar Diagnostic, Drum (ACCU-CHEK COMPACT TEST) strp Test blood sugar(s) 3 times daily. Dx:E11.9 . Insulin: Yes loratadine (CLARITIN) 10 mg tablet Take 1 tablet by mouth once daily. Cholecalciferol, Vitamin D3, 1,000 unit cap Take 1 capsule by mouth once daily. Insulin Turkey, Disposable, (RELION PEN NEEDLES) 32 x 5/32 ndle Use as directed with insulin pen. 250.00. 4 injections/day. On insulin. Blood-Glucose Meter, Drum-type (ACCU-CHEK COMPACT PLUS CARE) kit Use as directed cyanocobalamin (VITAMIN B-12) 1,000 mcg tab Take 1 tablet by mouth once daily. Aspirin 81 mg Tab Take 81 mg by mouth. No current facility-administered medications on file prior to visit. Social History Social History Tobacco Use Smoking status: Former Smokeless tobacco: Never Tobacco comments: Quit 1980s Vaping Use Vaping Use: Never used Substance Use Topics Alcohol use: No Drug use: No EXAM: BP 97/64 Pulse 68 Resp 16 Wt 119 kg (262 lb 5.6 oz) SpO2 99% General Appearance: Well appearing, alert, in no acute distress, well-hydrated, well nourished.. Right leg: swelling and erythema to lower leg; superficial 2-3 cm wound under lateral fifth metatarsal head.. Health Maintenance List BP Controlled (<130/80) Never done DTaP,Tdap,Td Vaccine(1 - Tdap) Never done Shingrix Vaccine(1 of 2) Never done RSV Vaccine(1 - 1-dose 60+ series) Never done Pneumococcal Vaccine: 65+(3 of 3 - PPSV23 or PCV20) due on 10/25/2015 Dilated Retinal Exam due on 03/11/2019 Advance Directive Discussion due on 09/27/2023 Urine Albumin:Creatinine Ratio due on 01/02/2024 Diabetic Foot Exam due on 04/15/2024 Covid-19 Vaccine( - season) due on 04/10/2025 Influenza Vaccine(1) due on 05/28/2024 HbA1C due on 10/16/2024 Annual PCP Team Chronic Disease Visit due on 04/10/2025 Depression Screening due on 04/10/2025 Anxiety Screening due on 04/10/2025 LDL Cholesterol due on 04/15/2025 Serum Creatinine due on 04/15/2025 Hemoglobin/Hematocrit due on 04/15/2025 Hepatitis C Screening Completed Bone Density Screening Addressed Mammogram Screening Discontinued Colorectal Cancer Screening Discontinued Data reviewed none ASSESSMENT/PLAN: 1. Diabetic ulcer of right midfoot associated with type 2 diabetes mellitus, unspecified ulcer stage ([facility]) - ICD9: 250.80, 707.14, ICD10: E11.621, L97.419 (primary diagnosis) - New ulcer, with cellulitis - Start Augmentin, refer to Podiatry; family requests [facility], as is treated there. - AMOXICILLIN 875 MG-POTASSIUM CLAVULANATE 125 MG TABLET - CONSULT TO PODIATRY 2. Morbid obesity with body mass index of 40.0-44.9 in adult ([facility]) - ICD9: 278.01, V85.41, ICD10: E66.01, Z68.41 Stable - Behavioral intervention Follow up prn; will re-evaluate swelling after infection clears I agree with the Chief Complaint, ROS, and Past Histories independently gathered by the clinical application support engineer and the remaining scribed note accurately describes my personal service to the patient. Medical Decision Making: Problems: Moderate: New problem with uncertain prognosis Risk: Moderate: Drug management Medical Decision Making Level: 4 - Moderate Amado Lopes MD The documentation for this note was completed by Mariza Graham MA acting as scribe for Amado Lopes MD. May 06, 2024 8:46 AM. Mariza Graham MA\ documented in this encounter [facility] 05-06-2024 Note HNO ID: [id number] Author: AMADO LOPES MD Service: ? Author Type: Physician Type: Progress Notes Filed: 05/06/2024 11:42 Note Text: Chief Complaint Patient presents with: Wound Evaluation: Bottom of right foot x 1 week HPI Rosa Myers is a 74 year old female who presents here today for wound. Pt has wound to Bottom of right foot x 1 week just under the toe. is changing the dress about once daily to every other day. Has some drainage. Doesn't seem to be getting any better, getting bigger. Pain with pressure. Walking, standing. No injury that she is aware of. Right lower leg redness. Edema: taurus legs, no improvement since increasing Lasix to 80 mg daily. Does not improve over night or with elevation. Past medical history, appointments, medications, allergies reviewed. Previous Medical History PAST MEDICAL HISTORY : Allergic rhinitis due to other allergen No date: Essential hypertension, benign No date: Type II or unspecified type diabetes mellitus without mention of complication, uncontrolled Previous Surgical History PAST SURGICAL HISTORY 10/26/2017: CATARACT EXTRACTION HX; Right 02/24/2022: EGD W/O [facility] SPEC VARICIES INJ; N/A 1987: LIG/TRNSXJ FLP TUBE ABDL/VAG APPR UNI/BI Comment: Tubal ligation 1995: LIGJ DIVJ AND/EXCJ VARICOSE VEIN CLUSTER 1 LEG Comment: Varicose Vein Surgery No date: TONSILLECTOMY PRIMARY/SECONDARY Comment: Tonsillectomy Family History FAMILY HISTORY Problem Relation Age of Onset Diabetes Father Coronary Artery Disease Father Coronary Artery Disease Mother CABG age 80 Cataract Sister Blindness Sister Blindness Other Patient Allergies ALLERGIES Allergen Reactions Diana Inhibitors Neomycin Current Medications Current Outpatient Medications on File Prior to Visit Medication Sig dapagliflozin propanediol (FARXIGA) 10 mg tablet Take 1 tablet by mouth daily with breakfast. clotrimazole-betamethasone (LOTRISONE) cream Apply to affected area two times a day. furosemide (LASIX) 40 mg tablet Take 2 tablets by mouth once daily. FLUoxetine (PROZAC) 10 mg capsule Take 1 capsule by mouth once daily. carvedilol (COREG) 12.5 mg tablet Take 1 tablet by mouth two times a day. insulin detemir U-100 (LEVEMIR) 100 unit/mL (3 mL) injection pen Inject 70 Units subcutaneously daily with breakfast. insulin detemir U-100 (LEVEMIR U-100 INSULIN) 100 unit/mL injection Inject 70 Units subcutaneously every morning. valsartan (DIOVAN) 160 mg tablet Take 1 tablet by mouth once daily. insulin lispro (HUMALOG KWIKPEN INSULIN) 100 unit/mL INJECT 25 UNITS SUBCUTANEOUSLY THREE TIMES DAILY WITH MEALS DIRECTED atorvastatin (LIPITOR) 40 mg tablet Take 1 tablet by mouth daily at bedtime. For cholesterol. blood sugar diagnostic (BLOOD GLUCOSE TEST) test strip Alvina test strips. Test blood sugars once daily as directed. Dx: E11.9. Insulin: Yes clopidogrel (PLAVIX) 75 mg tablet Take 1 tablet by mouth once daily. Insulin Syringe-Needle U-100 1 mL 29 gauge x 1/2 1 Each once daily. USE ONE SYRINGE FOR EACH INSULIN DOSE/ 1 PER DAY insulin needles, DISPOSABLE, (PEN NEEDLE) 31 gauge x 5/16 Use 4 times daily to inject insulin blood sugar diagnostic (BLOOD GLUCOSE TEST) test strip Test blood sugar(s) 3 times daily. Dx: 250.02. Insulin: Yes Blood-Glucose Meter misc 1 Each once daily. Blood Sugar Diagnostic, Drum (ACCU-CHEK COMPACT TEST) strp Test blood sugar(s) 3 times daily. Dx:E11.9 . Insulin: Yes loratadine (CLARITIN) 10 mg tablet Take 1 tablet by mouth once daily. Cholecalciferol, Vitamin D3, 1,000 unit cap Take 1 capsule by mouth once daily. Insulin Turkey, Disposable, (RELION PEN NEEDLES) 32 x 5/32 ndle Use as directed with insulin pen. 250.00. 4 injections/day. On insulin. Blood-Glucose Meter, Drum-type (ACCU-CHEK COMPACT PLUS CARE) kit Use as directed cyanocobalamin (VITAMIN B-12) 1,000 mcg tab Take 1 tablet by mouth once daily. Aspirin 81 mg Tab Take 81 mg by mouth. No current facility-administered medications on file prior to visit. Social History Social History Tobacco Use Smoking status: Former Smokeless tobacco: Never Tobacco comments: Quit 1980s Vaping Use Vaping Use: Never used Substance Use Topics Alcohol use: No Drug use: No EXAM: BP 97/64 Pulse 68 Resp 16 Wt 119 kg (262 lb 5.6 oz) SpO2 99% General Appearance: Well appearing, alert, in no acute distress, well-hydrated, well nourished.. Right leg: swelling and erythema to lower leg; superficial 2-3 cm wound under lateral fifth metatarsal head.. Health Maintenance List BP Controlled (<130/80) Never done DTaP,Tdap,Td Vaccine(1 - Tdap) Never done Shingrix Vaccine(1 of 2) Never done RSV Vaccine(1 - 1-dose 60+ series) Never done Pneumococcal Vaccine: 65+(3 of 3 - PPSV23 or PCV20) due on 10/25/2015 Dilated Retinal Exam due on 03/11/2019 Advance Directive Discussion due on 09/27/2023 Urine Albumin:Creatinine Ratio due o (more content not included)... [facility] 05-03-2024 Note HNO ID: [id number] Author: JESSICA YEN MA Service: ? 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 Updated notes to address due care gap and HCC gap closure No HCC BP to be addressed at upcoming appointment Reason for Outreach Care Gap/HCC or Scheduling Wellness Visits Care Gaps due: Medicare Annual Wellness Visit Controlling Blood Pressure Patient Contacted: Unable or unnecessary to reach patient: Patient already scheduled Updated appointment notes Navigation Signature: Jessica Yen MA May 03, 2024 9:09 AM [facility] 05-03-2024 History of Presen t illness Narrative POPULATION HEALTH NAVIGATION OUTREACH Action/FYI Patient is on [facility] CURRENT ROSTER Workbench list for below and needs appointment to address: BP Controlled (<130/80) DTaP,Tdap,Td Vaccine(1 - Tdap) Shingrix Vaccine(1 of 2) RSV Vaccine(1 - 1-dose 60+ series) Pneumococcal Vaccine: 65+(3 of 3 - PPSV23 or PCV20) Dilated Retinal Exam Advance Directive Discussion Urine Albumin:Creatinine Ratio Diabetic Foot Exam Hemoglobin A1C (%) Date Value 04/15/2024 7.9 09/22/2021 7.3 Patient due for: Medicare Annual Wellness Visit Controlling Blood Pressure Upcoming OV converted per [place] protocol to AWV. Updated notes to address due care gap and HCC gap closure No HCC BP to be addressed at upcoming appointment Reason for Outreach Care Gap/HCC or Scheduling Wellness Visits Care Gaps due: Medicare Annual Wellness Visit Controlling Blood Pressure Patient Contacted: Unable or unnecessary to reach patient: Patient already scheduled Updated appointment notes Navigation Signature: Jessica Yen MA May 03, 2024 9:09 AM documented in this encounter [facility] 05-03-2024 Note Patient Outreach (RITU TNAV) ROSA MYERS ([id number]) 1950 F Date Time Provider Department 05/03/24 JESSICA YEN During your visit today, we recorded the following information about you: Jessica Yen MA 05/03/2024 9:11 AM Signed POPULATION HEALTH NAVIGATION OUTREACH Action/FYI Patient is on [facility] for below and needs appointment to address: BP Controlled (<130/80) DTaP,Tdap,Td Vaccine(1 - Tdap) Shingrix Vaccine(1 of 2) RSV Vaccine(1 - 1-dose 60+ series) Pneumococcal Vaccine: 65+(3 of 3 - PPSV23 or PCV20) Dilated Retinal Exam Advance Directive Discussion Urine Albumin:Creatinine Ratio Diabetic Foot Exam Hemoglobin A1C (%) Date Value 04/15/2024 7.9 09/22/2021 7.3 Patient due for: Medicare Annual Wellness Visit Controlling Blood Pressure Upcoming OV converted per [place] protocol to AWV. Updated notes to address due care gap and HCC gap closure No HCC BP to be addressed at upcoming appointment Reason for Outreach Care Gap/HCC or Scheduling Wellness Visits Care Gaps due: Medicare Annual Wellness Visit Controlling Blood Pressure Patient Contacted: Unable or unnecessary to reach patient: Patient already scheduled Updated appointment notes Navigation Signature: Jessica Yen MA May 03, 2024 9:09 AM Allergies As of Date: 05/03/2024 Noted Allergy Reaction DIANA INHIBITORS 07/17/2005 NEOMYCIN 07/17/2005 Date Reviewed: 04/10/2024 Reviewed by: Mariza Graham MA - Fully Assessed Reason for Visit: Population Health Navigation Outreach [3910] [facility] Prescriptions as of 05/03/2024 - dapagliflozin propanediol (FARXIGA) 10 mg tablet Take 1 tablet by mouth daily with breakfast. - clotrimazole-betamethasone (LOTRISONE) cream Apply to affected area two times a day. - furosemide (LASIX) 40 mg tablet Take 2 tablets by mouth once daily. - FLUoxetine (PROZAC) 10 mg capsule Take 1 capsule by mouth once daily. - carvedilol (COREG) 12.5 mg tablet Take 1 tablet by mouth two times a day. - insulin detemir U-100 (LEVEMIR) 100 unit/mL (3 mL) injection pen Inject 70 Units subcutaneously daily with breakfast. - insulin detemir U-100 (LEVEMIR U-100 INSULIN) 100 unit/mL injection Inject 70 Units subcutaneously every morning. - valsartan (DIOVAN) 160 mg tablet Take 1 tablet by mouth once daily. - insulin lispro (HUMALOG KWIKPEN INSULIN) 100 unit/mL INJECT 25 UNITS SUBCUTANEOUSLY THREE TIMES DAILY WITH MEALS DIRECTED - atorvastatin (LIPITOR) 40 mg tablet Take 1 tablet by mouth daily at bedtime. For cholesterol. - blood sugar diagnostic (BLOOD GLUCOSE TEST) test strip Alvina test strips. Test blood sugars once daily as directed. Dx: E11.9. Insulin: Yes - clopidogrel (PLAVIX) 75 mg tablet Take 1 tablet by mouth once daily. - Insulin Syringe-Needle U-100 1 mL 29 gauge x 1/2 1 Each once daily. USE ONE SYRINGE FOR EACH INSULIN DOSE/ 1 PER DAY - insulin needles, DISPOSABLE, (PEN NEEDLE) 31 gauge x 5/16 Use 4 times daily to inject insulin - blood sugar diagnostic (BLOOD GLUCOSE TEST) test strip Test blood sugar(s) 3 times daily. Dx: 250.02. Insulin: Yes - Blood-Glucose Meter misc 1 Each once daily. - Blood Sugar Diagnostic, Drum (ACCU-CHEK COMPACT TEST) strp Test blood sugar(s) 3 times daily. Dx:E11.9 . Insulin: Yes - loratadine (CLARITIN) 10 mg tablet Take 1 tablet by mouth once daily. - Cholecalciferol, Vitamin D3, 1,000 unit cap Take 1 capsule by mouth once daily. - Insulin Turkey, Disposable, (RELION PEN NEEDLES) 32 x 5/32 ndle Use as directed with insulin pen. 250.00. 4 injections/day. On insulin. - Blood-Glucose Meter, Drum-type (ACCU-CHEK COMPACT PLUS CARE) kit Use as directed - cyanocobalamin (VITAMIN B-12) 1,000 mcg tab Take 1 tablet by mouth once daily. - Aspirin 81 mg Tab Take 81 mg by mouth. Meds Comments as of 01/12/2023: Taking OTC Iron tablet once daily. 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 Reminder of appt date and time in 3 months. [facility] 04-19-2024 Miscellaneous Notes Formattin g of this note might be different from the original. Patient returned call and went over results, notes from Dr Lopes with understanding. Reminder of appt date and time in 3 months. Tried to reach pt at her number and pt son at his number but both lines just ring. Will try to call again later. Mariza Graham MA Please notify patient that her lab results are stable; stay on the same medications and follow up as planned in 3 months. Amado Lopes MD documented in this encounter [facility] 04-18-2024 Telephone encount er Note Tried to reach pt at her number and pt son at his number but both lines just ring. Will try to call again later. Mariza Graham MA [facility] 04-18-2024 Telephone encount er Note Please notify patient that her lab results are stable; stay on the same medications and follow up as planned in 3 months. Amado Lopes MD [facility] 04-10-2024 History of Presen t illness Narrative Chief Complaint Patient presents with: Physical HPI Rosa Myers is a 74 year old female who presents here today for physical. Pt has not been seen since March 2023. Here with her son Marcell. No falls in the last year. Mini Co/5 Behavioral Health Screening PHQ-2 Score: 0 (Lower risk for depression) NURYS-2 Score: 0 (Lower risk for anxiety) Recommendation: medication management; see below No bowel, Gi, or urinary issues. She does urinate every 2-4 hours through the day and night. GERD: Stable, no longer using Protonix 40 mg daily. HTN: Taking Diovan 160 mg daily, Coreg 12.5 mg BID. No chest pains, dizziness, or SOB. Does not check BP at home. Lipid/CAD: Taking Plavix 75 mg daily and Lipitor 40 mg daily. Also taking ASA 81 mg daily. Follows with [facility]; had recent echo showing no change EF 35%. DM: Is on Humalog 25 units TID with meals, Levemir 70 units daily, Farxiga 10 mg daily. No hypoglycemic episodes, no neuropathy sx. Does check BS at home once a day with FBS 194. Edema: taurus legs; stable with lasix 40 mg daily. She doesn't feel that the lasix is helping, swelling doesn't improve and it doesn't get any better over night. She has some redness to the lower legs, no pain or drainage. Spot on left anterior mancilla that became red, peeled off, now some drainage/ Has not seen an eye doctor for sometime. Had right eye cataract removed but never went back to get the other eye done due to transportation. She feels she can see just fine and will wear glasses to read. Marcell, her son has some concerns about depression. She doesn't seem to have any excitement about things or desire to do anything. Past medical history, appointments, medications, allergies reviewed. Previous Medical History PAST MEDICAL HISTORY Diagnosis Date Allergic rhinitis due to other allergen Essential hypertension, benign Type II or unspecified type diabetes mellitus without mention of complication, uncontrolled Previous Surgical History PAST SURGICAL HISTORY Procedure Laterality Date CATARACT EXTRACTION HX Right 10/26/2017 EGD W/O [facility]SH SPEC VARICIES INJ N/A 02/24/2022 LIG/TRNSXJ FLP TUBE ABDL/VAG APPR UNI/BI 1987 Tubal ligation LIGJ DIVJ &/EXCJ VARICOSE VEIN CLUSTER 1 LEG 1995 Varicose Vein Surgery TONSILLECTOMY PRIMARY/SECONDARY <AGE 10 Tonsillectomy Family History FAMILY HISTORY Problem Relation Age of Onset Diabetes Father Coronary Artery Disease Father Coronary Artery Disease Mother CABG age 80 Cataract Sister Blindness Sister Blindness Other Patient Allergies ALLERGIES Allergen Reactions Diana Inhibitors Neomycin Current Medications Current Outpatient Medications on File Prior to Visit Medication Sig carvedilol (COREG) 12.5 mg tablet Take 1 tablet by mouth two times a day. insulin detemir U-100 (LEVEMIR) 100 unit/mL (3 mL) injection pen Inject 70 Units subcutaneously daily with breakfast. insulin detemir U-100 (LEVEMIR U-100 INSULIN) 100 unit/mL injection Inject 70 Units subcutaneously every morning. furosemide (LASIX) 40 mg tablet Take 1 tablet by mouth once daily. valsartan (DIOVAN) 160 mg tablet Take 1 tablet by mouth once daily. insulin lispro (HUMALOG KWIKPEN INSULIN) 100 unit/mL INJECT 25 UNITS SUBCUTANEOUSLY THREE TIMES DAILY WITH MEALS DIRECTED atorvastatin (LIPITOR) 40 mg tablet Take 1 tablet by mouth daily at bedtime. For cholesterol. blood sugar diagnostic (BLOOD GLUCOSE TEST) test strip Alvina test strips. Test blood sugars once daily as directed. Dx: E11.9. Insulin: Yes dapagliflozin propanediol (FARXIGA) 10 mg tablet Take 1 tablet by mouth daily with breakfast. clopidogrel (PLAVIX) 75 mg tablet Take 1 tablet by mouth once daily. Insulin Syringe-Needle U-100 1 mL 29 gauge x 1/2 1 Each once daily. USE ONE SYRINGE FOR EACH INSULIN DOSE/ 1 PER DAY insulin needles, DISPOSABLE, (PEN NEEDLE) 31 gauge x 5/16 Use 4 times daily to inject insulin blood sugar diagnostic (BLOOD GLUCOSE TEST) test strip Test blood sugar(s) 3 times daily. Dx: 250.02. Insulin: Yes pantoprazole DR (PROTONIX) 40 mg tablet Take 1 tablet by mouth once daily. Blood-Glucose Meter misc 1 Each once daily. Blood Sugar Diagnostic, Drum (ACCU-CHEK COMPACT TEST) strp Test blood sugar(s) 3 times daily. Dx:E11.9 . Insulin: Yes loratadine (CLARITIN) 10 mg tablet Take 1 tablet by mouth once daily. Cholecalciferol, Vitamin D3, 1,000 unit cap Take 1 capsule by mouth once daily. Insulin Turkey, Disposable, (RELION PEN NEEDLES) 32 x 5/32 ndle Use as directed with insulin pen. 250.00. 4 injections/day. On insulin. Blood-Glucose Meter, Drum-type (ACCU-CHEK COMPACT PLUS CARE) kit Use as directed cyanocobalamin (VITAMIN B-12) 1,000 mcg tab Take 1 tablet by mouth once daily. Aspirin 81 mg Tab Take 81 mg by mouth. No current facility-administered medications on file prior to visit. Social History Social History Tobacco Use Smoking status: Former Smokeless tobacco: Never Tobacco comments: Quit 1980s Vaping Use Vaping Use: Never used Substance Use Topics Alcohol use: No Drug use: No EXAM: BP 140/80 Pulse 74 Resp 16 Wt 120 kg (264 lb 9.6 oz) General Appearance: Well appearing, alert, in no acute distress, well-hydrated, well nourished.. Skin: erythema and scaling with drainage left anterior mancilla. Lungs: Lungs clear to auscultation. No wheezing, rhonchi, rales.. Heart: RRR without murmur, gallop, or rubs. No ectopy. Extremities: 2+ edema taurus lower legs. Health Maintenance List DTaP,Tdap,Td Vaccine(1 - Tdap) Never done RSV Vaccine(1 - 1-dose 60+ series) Never done Dilated Retinal Exam due on 03/11/2019 Advance Directive Discussion due on 09/27/2023 Behavioral Health Screening Never done HbA1C due on 04/08/2024 Diabetic Foot Exam due on 04/15/2024 Shingrix Vaccine(1 of 2) due on 04/15/2024 Pneumococcal Vaccine: 65+(3 of 3 - PPSV23 or PCV20) due on 04/15/2024 Covid-19 Vaccine(1 - season) due on 04/10/2025 Annual PCP Team Chronic Disease Visit due on 04/15/2024 BP Controlled (<130/80) due on 04/15/2024 Influenza Vaccine(1) due on 05/28/2024 LDL Cholesterol due on 10/09/2024 Serum Creatinine due on 10/09/2024 Hemoglobin/Hematocrit due on 10/09/2024 Hepatitis C Screening Completed Bone Density Screening Addressed Mammogram Screening Discontinued Colorectal Cancer Screening Discontinued Data reviewed none ASSESSMENT/PLAN: 1. Hyperlipidemia, unspecified hyperlipidemia type - ICD9: 272.4, ICD10: E78.5 (primary diagnosis) - Controlled - Continue current medications - Counseled on healthy diet and regular exercise - COMPREHENSIVE METABOLIC PANEL - LIPID PANEL BASIC 2. Chronic kidney disease, stage 4 (severe) ([facility]) - ICD9: 585.4, ICD10: N18.4 - eGFR: 27 Stable 3. Heart failure, unspecified HF chronicity, unspecified heart failure type ([facility]) - ICD9: 428.9, ICD10: I50.9 Follow with cardiology 4. Morbid obesity with body mass index of 40.0-44.9 in adult ([facility]) - ICD9: 278.01, V85.41, ICD10: E66.01, Z68.41 5. Type 2 diabetes mellitus with stage 3b chronic kidney disease, without long-term current use of insulin ([facility]) - ICD9: 250.40, 585.3, ICD10: E11.22, N18.32 - Controlled - Continue current medications - eGFR: 27 Stable - COMPREHENSIVE METABOLIC PANEL - LIPID PANEL BASIC - HEMOGLOBIN A1C 6. Essential hypertension, benign - ICD9: 401.1, ICD10: I10 - Controlled - Continue current medications - Recommend home blood pressure monitoring, to bring results to next visit - Encouraged sodium restriction, DASH or Mediterranean diet - Recommend regular aerobic exercise - COMPLETE BLOOD COUNT 7. Anemia, unspecified type - ICD9: 285.9, ICD10: D64.9 - COMPLETE BLOOD COUNT 8. Bilateral leg edema - ICD9: 782.3, ICD10: R60.0 - Increase lasix to 80 mg daily - FUROSEMIDE 40 MG TABLET 9. Cellulitis of skin - ICD9: 682.9, ICD10: L03.90 - Begin treatment with Cephalaxin (Keflex) - CEPHALEXIN 500 MG CAPSULE - CLOTRIMAZOLE-BETAMETHASONE 1 %-0.05 % TOPICAL CREAM 10. Other depression - ICD9: 311, ICD10: F32.89 Start Prozac 10 mg daily - FLUOXETINE 10 MG CAPSULE She will get labs this week; notify of results Follow up in 3 months I agree with the Chief Complaint, ROS, and Past Histories independently gathered by the clinical application support engineer and the remaining scribed note accurately describes my personal service to the patient. Medical Decision Making: Problems: Moderate: 1+ chronic illnesses with change and 2+ stable chronic illnesses Data: Unique test(s) ordered: 3+ Risk: Moderate: Drug management Medical Decision Making Level: 4 - Moderate Amado Lopes MD The documentation for this note was completed by Mariza Graham MA acting as scribe for Amado Lopes MD. April 10, 2024 6:09 PM. Mariza Graham MA documented in this encounter [facility] 04-10-2024 Note HNO ID: [id number] Author: AMADO LOPES MD Service: ? Author Type: Physician Type: Progress Notes Filed: 04/10/2024 19:02 Note Text: Chief Complaint Patient presents with: Physical HPI Rosa Myers is a 74 year old female who presents here today for physical. Pt has not been seen since March 2023. Here with her son Marcell. No falls in the last year. Mini Co/5 Behavioral Health Screening PHQ-2 Score: 0 (Lower risk for depression) NURYS-2 Score: 0 (Lower risk for anxiety) Recommendation: medication management; see below No bowel, Gi, or urinary issues. She does urinate every 2-4 hours through the day and night. GERD: Stable, no longer using Protonix 40 mg daily. HTN: Taking Diovan 160 mg daily, Coreg 12.5 mg BID. No chest pains, dizziness, or SOB. Does not check BP at home. Lipid/CAD: Taking Plavix 75 mg daily and Lipitor 40 mg daily. Also taking ASA 81 mg daily. Follows with [facility]; had recent echo showing no change EF 35%. DM: Is on Humalog 25 units TID with meals, Levemir 70 units daily, Farxiga 10 mg daily. No hypoglycemic episodes, no neuropathy sx. Does check BS at home once a day with FBS 194. Edema: taurus legs; stable with lasix 40 mg daily. She doesn't feel that the lasix is helping, swelling doesn't improve and it doesn't get any better over night. She has some redness to the lower legs, no pain or drainage. Spot on left anterior mancilla that became red, peeled off, now some drainage/ Has not seen an eye doctor for sometime. Had right eye cataract removed but never went back to get the other eye done due to transportation. She feels she can see just fine and will wear glasses to read. Marcell, her son has some concerns about depression. She doesn't seem to have any excitement about things or desire to do anything. Past medical history, appointments, medications, allergies reviewed. Previous Medical History PAST MEDICAL HISTORY Diagnosis Date Allergic rhinitis due to other allergen Essential hypertension, benign Type II or unspecified type diabetes mellitus without mention of complication, uncontrolled Previous Surgical History PAST SURGICAL HISTORY Procedure Laterality Date CATARACT EXTRACTION HX Right 10/26/2017 EGD W/O [facility] SPEC VARICIES INJ N/A 02/24/2022 LIG/TRNSXJ FLP TUBE ABDL/VAG APPR UNI/BI 1987 Tubal ligation LIGJ DIVJ AND/EXCJ VARICOSE VEIN CLUSTER 1 LEG 1995 Varicose Vein Surgery TONSILLECTOMY PRIMARY/SECONDARY Tonsillectomy Family History FAMILY HISTORY Problem Relation Age of Onset Diabetes Father Coronary Artery Disease Father Coronary Artery Disease Mother CABG age 80 Cataract Sister Blindness Sister Blindness Other Patient Allergies ALLERGIES Allergen Reactions Diana Inhibitors Neomycin Current Medications Current Outpatient Medications on File Prior to Visit Medication Sig carvedilol (COREG) 12.5 mg tablet Take 1 tablet by mouth two times a day. insulin detemir U-100 (LEVEMIR) 100 unit/mL (3 mL) injection pen Inject 70 Units subcutaneously daily with breakfast. insulin detemir U-100 (LEVEMIR U-100 INSULIN) 100 unit/mL injection Inject 70 Units subcutaneously every morning. furosemide (LASIX) 40 mg tablet Take 1 tablet by mouth once daily. valsartan (DIOVAN) 160 mg tablet Take 1 tablet by mouth once daily. insulin lispro (HUMALOG KWIKPEN INSULIN) 100 unit/mL INJECT 25 UNITS SUBCUTANEOUSLY THREE TIMES DAILY WITH MEALS DIRECTED atorvastatin (LIPITOR) 40 mg tablet Take 1 tablet by mouth daily at bedtime. For cholesterol. blood sugar diagnostic (BLOOD GLUCOSE TEST) test strip Alvina test strips. Test blood sugars once daily as directed. Dx: E11.9. Insulin: Yes dapagliflozin propanediol (FARXIGA) 10 mg tablet Take 1 tablet by mouth daily with breakfast. clopidogrel (PLAVIX) 75 mg tablet Take 1 tablet by mouth once daily. Insulin Syringe-Needle U-100 1 mL 29 gauge x 1/2 1 Each once daily. USE ONE SYRINGE FOR EACH INSULIN DOSE/ 1 PER DAY insulin needles, DISPOSABLE, (PEN NEEDLE) 31 gauge x 5/16 Use 4 times daily to inject insulin blood sugar diagnostic (BLOOD GLUCOSE TEST) test strip Test blood sugar(s) 3 times daily. Dx: 250.02. Insulin: Yes pantoprazole DR (PROTONIX) 40 mg tablet Take 1 tablet by mouth once daily. Blood-Glucose Meter misc 1 Each once daily. Blood Sugar Diagnostic, Drum (ACCU-CHEK COMPACT TEST) strp Test blood sugar(s) 3 times daily. Dx:E11.9 . Insulin: Yes loratadine (CLARITIN) 10 mg tablet Take 1 tablet by mouth once daily. Cholecalciferol, Vitamin D3, 1,000 unit cap Take 1 capsule by mouth once daily. Insulin Turkey, Disposable, (RELION PEN NEEDLES) 32 x 5/32 ndle Use as directed with insulin pen. 250.00. 4 injections/day. On insulin. Blood-Glucose Meter, Drum-type (ACCU-CHEK COMPACT PLUS CARE) kit Use as directed cyanocobalamin (VITAMIN B-12) 1,000 mcg tab Take 1 tablet by mouth once daily. Aspirin 81 mg Tab Take 81 mg by mouth. (more content not included)... [facility] 04-04-2024 Telephone encount er Note STAMP Please reach out to patient for overdue appointment for chronic disease management with myself. If he/she is no longer following with Dr. Lopes, please remove name from PCP field. Due for Medicare Wellness/Follow up, would need 40 minutes. Maciel Busby APRN.CNP [facility] 04-04-2024 Miscellaneous Notes Formattin g of this note might be different from the original. STAMP Please reach out to patient for overdue appointment for chronic disease management with myself. If he/she is no longer following with Dr. Lopes, please remove name from PCP field. Due for Medicare Wellness/Follow up, would need 40 minutes. Maciel Busby APRN.CNP documented in this encounter [facility] 02-28-2024 Note HNO ID: [id number] Author: JESSICA YEN MA Service: ? Author Type: Marketing Communications Associate Type: Progress Notes Filed: 02/28/2024 11:30 Note Text: POPULATION HEALTH NAVIGATION OUTREACH Action/FYI Patient is on [facility] CURRENT ROSTER Workbench list for below and needs appointment to address: DTaP,Tdap,Td Vaccine(1 - Tdap) RSV Vaccine(1 - 1-dose 60+ series) Dilated Retinal Exam Covid-19 Vaccine( - 2022- season) Advance Directive Discussion Behavioral Health Screening Hemoglobin A1C (%) Date Value 10/09/2023 6.9 09/22/2021 7.3 Patient due for: Medicare Annual Wellness Visit Diabetic Eye Exam Advance Directives Attempted to reach patient, phone rings busy, unable to leave message. No mychart available. Previous letter sent - No letter sent. Reason for Outreach Care Gap/HCC or Scheduling Wellness Visits Care Gaps due: Medicare Annual Wellness Visit Diabetic Eye Exam Patient Contacted: Unable or unnecessary to reach patient: Unable to leave message HCC related Navigation Signature: Jessica Yen MA February 28, 2024 11:27 AM [facility] 02-28-2024 History of Presen t illness Narrative POPULATION HEALTH NAVIGATION OUTREACH Action/FYI Patient is on [facility] CURRENT ROSTER Workbench list for below and needs appointment to address: DTaP,Tdap,Td Vaccine(1 - Tdap) RSV Vaccine(1 - 1-dose 60+ series) Dilated Retinal Exam Covid-19 Vaccine( season) Advance Directive Discussion Behavioral Health Screening Hemoglobin A1C (%) Date Value 10/09/2023 6.9 09/22/2021 7.3 Patient due for: Medicare Annual Wellness Visit Diabetic Eye Exam Advance Directives Attempted to reach patient, phone rings busy, unable to leave message. No mychart available. Previous letter sent - No letter sent. Reason for Outreach Care Gap/HCC or Scheduling Wellness Visits Care Gaps due: Medicare Annual Wellness Visit Diabetic Eye Exam Patient Contacted: Unable or unnecessary to reach patient: Unable to leave message HCC related Navigation Signature: Jessica Yen MA February 28, 2024 11:27 AM documented in this encounter [facility] 02-28-2024 Note Patient Outreach (NE TNAV) ROSA MYERS ([id number]) 1950 F Date Time Provider Department 02/28/24 JESSICA YEN NETHIRAMV During your visit today, we recorded the following information about you: Jessica Yen MA 02/28/2024 11:30 AM Signed POPULATION HEALTH NAVIGATION OUTREACH Action/ Patient is on [facility] CURRENT [employer]OSTER Workbench list for below and needs appointment to address: DTaP,Tdap,Td Vaccine(1 - Tdap) RSV Vaccine(1 - 1-dose 60+ series) Dilated Retinal Exam Covid-19 Vaccine( season) Advance Directive Discussion Behavioral Health Screening Hemoglobin A1C (%) Date Value 10/09/2023 6.9 09/22/2021 7.3 Patient due for: Medicare Annual Wellness Visit Diabetic Eye Exam Advance Directives Attempted to reach patient, phone rings busy, unable to leave message. No mychart available. Previous letter sent - No letter sent. Reason for Outreach Care Gap/HCC or Scheduling Wellness Visits Care Gaps due: Medicare Annual Wellness Visit Diabetic Eye Exam Patient Contacted: Unable or unnecessary to reach patient: Unable to leave message HCC related Navigation Signature: Jessica Yen MA February 28, 2024 11:27 AM Allergies As of Date: 02/28/2024 Noted Allergy Reaction DIANA INHIBITORS 07/17/2005 NEOMYCIN 07/17/2005 Date Reviewed: 04/15/2023 Reviewed by: Marietta Escalona MA - Fully Assessed Reason for Visit: Population Health Navigation Outreach [3910] Cmt: Nadeen [facility] 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 - AWV, Care gaps, HCC gap closure - [facility] Prescriptions as of 02/28/2024 - carvedilol (COREG) 12.5 mg tablet Take 1 tablet by mouth two times a day. - insulin detemir U-100 (LEVEMIR) 100 unit/mL (3 mL) injection pen Inject 70 Units subcutaneously daily with breakfast. - insulin detemir U-100 (LEVEMIR U-100 INSULIN) 100 unit/mL injection Inject 70 Units subcutaneously every morning. - furosemide (LASIX) 40 mg tablet Take 1 tablet by mouth once daily. - valsartan (DIOVAN) 160 mg tablet Take 1 tablet by mouth once daily. - insulin lispro (HUMALOG KWIKPEN INSULIN) 100 unit/mL INJECT 25 UNITS SUBCUTANEOUSLY THREE TIMES DAILY WITH MEALS DIRECTED - atorvastatin (LIPITOR) 40 mg tablet Take 1 tablet by mouth daily at bedtime. For cholesterol. - blood sugar diagnostic (BLOOD GLUCOSE TEST) test strip Alvina test strips. Test blood sugars once daily as directed. Dx: E11.9. Insulin: Yes - dapagliflozin propanediol (FARXIGA) 10 mg tablet Take 1 tablet by mouth daily with breakfast. - clopidogrel (PLAVIX) 75 mg tablet Take 1 tablet by mouth once daily. - Insulin Syringe-Needle U-100 1 mL 29 gauge x 1/2 1 Each once daily. USE ONE SYRINGE FOR EACH INSULIN DOSE/ 1 PER DAY - insulin needles, DISPOSABLE, (PEN NEEDLE) 31 gauge x 5/16 Use 4 times daily to inject insulin - blood sugar diagnostic (BLOOD GLUCOSE TEST) test strip Test blood sugar(s) 3 times daily. Dx: 250.02. Insulin: Yes - pantoprazole DR (PROTONIX) 40 mg tablet Take 1 tablet by mouth once daily. - Blood-Glucose Meter misc 1 Each once daily. - Blood Sugar Diagnostic, Drum (ACCU-CHEK COMPACT TEST) strp Test blood sugar(s) 3 times daily. Dx:E11.9 . Insulin: Yes - loratadine (CLARITIN) 10 mg tablet Take 1 tablet by mouth once daily. - Cholecalciferol, Vitamin D3, 1,000 unit cap Take 1 capsule by mouth once daily. - Insulin Turkey, Disposable, (RELION PEN NEEDLES) 32 x 532 ndle Use as directed with insulin pen. 250.00. 4 injections/day. On insulin. - Blood-Glucose Meter, Drum-type (ACCU-CHEK COMPACT PLUS CARE) kit Use as directed - cyanocobalamin (VITAMIN B-12) 1,000 mcg tab Take 1 tablet by mouth once daily. - Aspirin 81 mg Tab Take 81 mg by mouth. Meds Comments as of 01/12/2023: Taking OTC Iron tablet once daily. Problem List As Of Date 02/28/2024 Noted Resolved BENIGN HYPERTENSION [I10] 07/17/2005 Hyperlipidemia [E78.5] 07/17/2005 OSTEOARTHROS NOS-UNSPEC [M19.90] 07/17/2005 Allergic rhinitis [J30.9] 07/17/2005 DIFFUS CYSTIC MASTOPATHY [N60.19] 07/17/2005 Type 2 diabetes mellitus with diabetic chronic *04/15/2023 Personal history of transient ischemic attack (*11/15/2013 Morbid obesity with body mass index of 40.0-44.*02/09/2018 Stage 3b chronic kidney disease (HCC) [N18.32] 09/30/2021 10/15/2023 Anemia, unspecified [D64.9] 09/30/2021 Chronic kidney disease, stage 4 (severe) (HCC) *04/15/2023 USP current use of insulin (HCC) [Z79.4] 10/15/2023 Heart failure, unspecified (HCC) [I50.9] 04/15/2023 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*04/15/2023 Encounter Status:Closed by JESSICA YEN on 02/28/24 [facility] 02-22-2024 Telephone encount er Note The following approved medication requests have been transmitted electronically. Requested Prescriptions Pending Prescriptions Disp Refills carvedilol (COREG) 12.5 mg tablet 180 tablet 3 Sig: Take 1 tablet by mouth two times a day. Maciel Busby APRN.CNP [facility] 02-22-2024 Miscellaneous Notes Formattin g of this note is different from the original. The following approved medication requests have been transmitted electronically. Requested Prescriptions Pending Prescriptions Disp Refills carvedilol (COREG) 12.5 mg tablet 180 tablet 3 Sig: Take 1 tablet by mouth two times a day. Maciel Busby APRN.CNP Patient has been identified by name and date of : Yes, Provider Dr Lopes [facility] 02-22-24 Time 1:55p Patient phones for refill(s): Requested Prescriptions Pending Prescriptions Disp Refills carvedilol (COREG) 12.5 mg tablet 180 tablet 3 Sig: Take 1 tablet by mouth two times a day. Date of last office visit in primary care: 04/15/2023 Date of next office visit in primary care: Visit date not found Please advise. Thank you. Cindy Heart. documented in this encounter [facility] 02-22-2024 Telephone encount er Note Patient has been identified by name and date of : Yes, Provider Dr Lopes [facility] 02-22-24 Time 1:55p Patient phones for refill(s): Requested Prescriptions Pending Prescriptions Disp Refills carvedilol (COREG) 12.5 mg tablet 180 tablet 3 Sig: Take 1 tablet by mouth two times a day. Date of last office visit in primary care: 04/15/2023 Date of next office visit in primary care: Visit date not found Please advise. Thank you. Cindy Bull Pss. [facility] 01-20-2024 Telephone encount er Note Call to pt's son and notified him that Rx has been sent in, verbalized understanding. Marietta Escalona MA [facility] 01-20-2024 Miscellaneous Notes Formattin g of this note might be different from the original. Call to pt's son and notified him that Rx has been sent in, verbalized understanding. Marietta Escalona MA OK to refill as ordered Amado Lopes MD Son calls to report that he went to pick Levemir up at pharmacy and it was a vial instead of the pens which patient hasn't difficulty utilizing. Son didn't fill prescription and is asking for provider to send in prescription for pens. Verified with patient. Pended per request. Judie Paiz, RN documented in this encounter [facility] 01-20-2024 Telephone encount er Note OK to refill as ordered Amado Lopes MD [facility] 01-20-2024 Note HNO ID: [id number] Author: CINDY CURRIE MA Service: ? Author Type: Marketing Communications Associate Type: Progress Notes Filed: 01/20/2024 11:04 Note Text: POPULATION HEALTH NAVIGATION OUTREACH Action/FYI Letter received and sent to be mailed. Navigation Signature: Cindy Currie Population Health Navigator January 20, 2024 11:03 AM [facility] 01-20-2024 Telephone encount er Note Son calls to report that he went to pick Levemir up at pharmacy and it was a vial instead of the pens which patient hasn't difficulty utilizing. Son didn't fill prescription and is asking for provider to send in prescription for pens. Verified with patient. Pended per request. Judie Paiz RN [facility] 01-18-2024 Note HNO ID: [id number] Author: JESSICA YEN MA Service: ? Author Type: Marketing Communications Associate Type: Progress Notes Filed: 01/18/2024 10:23 Note Text: POPULATION HEALTH NAVIGATION OUTREACH Action/FYI Patient is on [facility] Workbench list for below and needs appointment to address: DTaP,Tdap,Td Vaccine(1 - Tdap) RSV Vaccine(1 - 1-dose 60+ series) Dilated Retinal Exam Covid-19 Vaccine() Advance Directive Discussion Behavioral Health Screening Hemoglobin A1C (%) Date Value 10/09/2023 6.9 09/22/2021 7.3 Patient due for: Medicare Annual Wellness Visit Diabetic Eye Exam Advance Directives Attempted to reach patient, phone rings then goes to busy signal - no voicemail, unable to leave message. No mychart. Sent letter Reason for Outreach Care Gap/HCC or Scheduling Wellness Visits Care Gaps due: Medicare Annual Wellness Visit Diabetic Eye Exam Advance Directives Patient Contacted: Unable or unnecessary to reach patient: Unable to leave message Letter mailed HCC related Navigation Signature: Jessica Yen MA January 18, 2024 7:29 AM [facility] 01-18-2024 History of Presen t illness Narrative POPULATION HEALTH NAVIGATION OUTREACH Action/FYI Patient is on [employer] Work[employer] list for below and needs appointment to address: DTaP,Tdap,Td Vaccine(1 - Tdap) RSV Vaccine(1 - 1-dose 60+ series) Dilated Retinal Exam Covid-19 Vaccine() Advance Directive Discussion Behavioral Health Screening Hemoglobin A1C (%) Date Value 10/09/2023 6.9 09/22/2021 7.3 Patient due for: Medicare Annual Wellness Visit Diabetic Eye Exam Advance Directives Attempted to reach patient, phone rings then goes to busy signal - no voicemail, unable to leave message. No mychart. Sent letter Reason for Outreach Care Gap/HCC or Scheduling Wellness Visits Care Gaps due: Medicare Annual Wellness Visit Diabetic Eye Exam Advance Directives Patient Contacted: Unable or unnecessary to reach patient: Unable to leave message Letter mailed HCC related Navigation Signature: Jessica Yen MA January 18, 2024 7:29 AM documented in this encounter [facility] 01-18-2024 Note Patient Outreach (RITU TNAV) ROSA MYERS ([id number]) 1950 F Date Time Provider Department 01/18/24 JESSICA YEN During your visit today, we recorded the following information about you: Jessica Yen MA 01/18/2024 10:23 AM Addendum POPULATION HEALTH NAVIGATION OUTREACH Action/ Patient is on [employer] Workbench list for below and needs appointment to address: DTaP,Tdap,Td Vaccine(1 - Tdap) RSV Vaccine(1 - 1-dose 60+ series) Dilated Retinal Exam Covid-19 Vaccine() Advance Directive Discussion Behavioral Health Screening Hemoglobin A1C (%) Date Value 10/09/2023 6.9 09/22/2021 7.3 Patient due for: Medicare Annual Wellness Visit Diabetic Eye Exam Advance Directives Attempted to reach patient, phone rings then goes to busy signal - no voicemail, unable to leave message. No mychart. Sent letter Reason for Outreach Care Gap/HCC or Scheduling Wellness Visits Care Gaps due: Medicare Annual Wellness Visit Diabetic Eye Exam Advance Directives Patient Contacted: Unable or unnecessary to reach patient: Unable to leave message Letter mailed HCC related Navigation Signature: Jessica Yen MA January 18, 2024 7:29 AM Cindy Currie MA 01/20/2024 11:04 AM Signed POPULATION HEALTH NAVIGATION OUTREACH Action/FYI Letter received and sent to be mailed. Navigation Signature: Cindy Currie Population Health Navigator January 20, 2024 11:03 AM Allergies As of Date: 01/18/2024 Noted Allergy Reaction DIANA INHIBITORS 07/17/2005 NEOMYCIN 07/17/2005 Date Reviewed: 04/15/2023 Reviewed by: Marietta Escalona MA - Fully Assessed Reason for Visit: Population Health Navigation Outreach [3910] Cmt: Nadeen Gerber workbench - AWV, Care gaps, [facility] gap closure - [facility] Prescriptions as of 01/20/2024 - insulin detemir U-100 (LEVEMIR U-100 INSULIN) 100 unit/mL injection Inject 70 Units subcutaneously every morning. - furosemide (LASIX) 40 mg tablet Take 1 tablet by mouth once daily. - valsartan (DIOVAN) 160 mg tablet Take 1 tablet by mouth once daily. - insulin lispro (HUMALOG KWIKPEN INSULIN) 100 unit/mL INJECT 25 UNITS SUBCUTANEOUSLY THREE TIMES DAILY WITH MEALS DIRECTED - atorvastatin (LIPITOR) 40 mg tablet Take 1 tablet by mouth daily at bedtime. For cholesterol. - blood sugar diagnostic (BLOOD GLUCOSE TEST) test strip Alvina test strips. Test blood sugars once daily as directed. Dx: E11.9. Insulin: Yes - dapagliflozin propanediol (FARXIGA) 10 mg tablet Take 1 tablet by mouth daily with breakfast. - insulin detemir U-100 (LEVEMIR) 100 unit/mL (3 mL) injection pen Inject 70 Units subcutaneously daily with breakfast. - clopidogrel (PLAVIX) 75 mg tablet Take 1 tablet by mouth once daily. - carvedilol (COREG) 12.5 mg tablet Take 1 tablet by mouth twice daily. - Insulin Syringe-Needle U-100 1 mL 29 gauge x 1/2 1 Each once daily. USE ONE SYRINGE FOR EACH INSULIN DOSE/ 1 PER DAY - insulin needles, DISPOSABLE, (PEN NEEDLE) 31 gauge x 5/16 Use 4 times daily to inject insulin - blood sugar diagnostic (BLOOD GLUCOSE TEST) test strip Test blood sugar(s) 3 times daily. Dx: 250.02. Insulin: Yes - pantoprazole DR (PROTONIX) 40 mg tablet Take 1 tablet by mouth once daily. - Blood-Glucose Meter misc 1 Each once daily. - Blood Sugar Diagnostic, Drum (ACCU-CHEK COMPACT TEST) strp Test blood sugar(s) 3 times daily. Dx:E11.9 . Insulin: Yes - loratadine (CLARITIN) 10 mg tablet Take 1 tablet by mouth once daily. - Cholecalciferol, Vitamin D3, 1,000 unit cap Take 1 capsule by mouth once daily. - Insulin Turkey, Disposable, (RELION PEN NEEDLES) 32 x 5/32 ndle Use as directed with insulin pen. 250.00. 4 injections/day. On insulin. - Blood-Glucose Meter, Drum-type (ACCU-CHEK COMPACT PLUS CARE) kit Use as directed - cyanocobalamin (VITAMIN B-12) 1,000 mcg tab Take 1 tablet by mouth once daily. - Aspirin 81 mg Tab Take 81 mg by mouth. Meds Comments as of 01/12/2023: Taking OTC Iron tablet once daily. Problem List As Of Date 01/18/2024 Noted Resolved BENIGN HYPERTENSION [I10] 07/17/2005 Hyperlipidemia [E78.5] 07/17/2005 OSTEOARTHROS NOS-UNSPEC [M19.90] 07/17/2005 Allergic rhinitis [J30.9] 07/17/2005 DIFFUS CYSTIC MASTOPATHY [N60.19] 07/17/2005 Type 2 diabetes mellitus with diabetic chronic *04/15/2023 Personal history of transient ischemic attack (*11/15/2013 Morbid obesity with body mass index of 40.0-44.*02/09/2018 Stage 3b chronic kidney disease (HCC) [N18.32] 09/30/2021 10/15/2023 Anemia, unspecified [D64.9] 09/30/2021 Chronic kidney disease, stage 4 (severe) (HCC) *04/15/2023 USP current use of insulin (HCC) [Z79.4] 10/15/2023 Heart failure, unspecified (HCC) [I50.9] 04/15/2023 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*04/15/2023 Letter Text Encoun (more content not included)... [facility] 01-13-2024 Miscellaneous Notes Formattin g of this note might be different from the original. OK to refill as ordered Amado Lopes MD Patient has been identified by name and date of : Yes, Patient phones for refill(s): Requested Prescriptions Pending Prescriptions Disp Refills insulin detemir U-100 (LEVEMIR U-100 INSULIN) 100 unit/mL injection 10 mL 5 Sig: Inject 70 Units subcutaneously every morning. Date of last office visit in primary care: 04/15/2023 Date of next office visit in primary care: Visit date not found Please advise. Thank you. Anastasia Mcdermott. documented in this encounter [facility] 12-02-2023 Miscellaneous Notes Formattin g of this note is different from the original. The following approved medication requests have been transmitted electronically. Requested Prescriptions Pending Prescriptions Disp Refills furosemide (LASIX) 40 mg tablet 90 tablet 3 Sig: Take 1 tablet by mouth once daily. valsartan (DIOVAN) 160 mg tablet 90 tablet 3 Sig: Take 1 tablet by mouth once daily. insulin lispro (HUMALOG KWIKPEN INSULIN) 100 unit/mL 30 Each 3 Sig: INJECT 25 UNITS SUBCUTANEOUSLY THREE TIMES DAILY WITH MEALS DIRECTED Maciel Busby APRN.CNP Patient has been identified by name and date of : Yes Requested Prescriptions Pending Prescriptions Disp Refills furosemide (LASIX) 40 mg tablet 90 tablet 3 Sig: Take 1 tablet by mouth once daily. valsartan (DIOVAN) 160 mg tablet 90 tablet 3 Sig: Take 1 tablet by mouth once daily. insulin lispro (HUMALOG KWIKPEN INSULIN) 100 unit/mL 30 Each 3 Sig: INJECT 25 UNITS SUBCUTANEOUSLY THREE TIMES DAILY WITH MEALS DIRECTED RX INSTRUCTIONS: Patient aware RX will be sent to pharmacy. No need to notify patient. Pushpa Neff Pss documented in this encounter [facility] 11-26-2023 Note HNO ID: [id number] Author: ?, ?, ? Service: ? Author Type: ? Type: Progress Notes Filed: 11/26/2023 13:22 Note Text: Rosa Myers is identified through a medication adherence outreach initiative based on pharmacy claims data from [employer] (insurer) for Statin medication(s). Patient is reviewed 11/26/23 due to medication adherence concerns with the following medications (name, strength, sig): atorvastatin 40mg, take 1 tablet daily. Per data/report, last fill date and days supply: due 12/01/23 Per reconcile dispense, last fill date and days supply: filled 09/02/23 for 90 days Per call to pharmacy, last picked up date and days supply: n/a Outcome of review/outreach: (choose outcome source and status) - left message Karlos Caputo [facility] 11-26-2023 History of Presen t illness Narrative Rosa Myers is identified through a medication adherence outreach initiative based on pharmacy claims data from [employer] (insurer) for Statin medication(s). Patient is reviewed 11/26/23 due to medication adherence concerns with the following medications (name, strength, sig): atorvastatin 40mg, take 1 tablet daily. Per data/report, last fill date and days supply: due 12/01/23 Per reconcile dispense, last fill date and days supply: filled 09/02/23 for 90 days Per call to pharmacy, last picked up date and days supply: n/a Outcome of review/outreach: (choose outcome source and status) - left message Karlos Caputo documented in this encounter [facility] 11-26-2023 Note Patient Outreach ( [facility]PES[facility]) ROSA MYERS ([id number]) 1950 F Date Time Provider Department 11/26/23 AMADO LOPES During your visit today, we recorded the following information about you: Harshal Karlos 11/26/2023 1:22 PM Signed Rosa Myers is identified through a medication adherence outreach initiative based on pharmacy claims data from [employer] (insurer) for Statin medication(s). Patient is reviewed 11/26/23 due to medication adherence concerns with the following medications (name, strength, sig): atorvastatin 40mg, take 1 tablet daily. Per data/report, last fill date and days supply: due 12/01/23 Per reconcile dispense, last fill date and days supply: filled 09/02/23 for 90 days Per call to pharmacy, last picked up date and days supply: n/a Outcome of review/outreach: (choose outcome source and status) - left message Karlos Caputo Allergies As of Date: 11/26/2023 Noted Allergy Reaction DIANA INHIBITORS 07/17/2005 NEOMYCIN 07/17/2005 Date Reviewed: 04/15/2023 Reviewed by: Marietta Escalona Ma - Fully Assessed Reason for Visit: Allied Health Visit [5] Cmt: Medication Adherence Outreach Prescriptions as of 11/26/2023 - atorvastatin (LIPITOR) 40 mg tablet Take 1 tablet by mouth daily at bedtime. For cholesterol. - blood sugar diagnostic (BLOOD GLUCOSE TEST) test strip Alvina test strips. Test blood sugars once daily as directed. Dx: E11.9. Insulin: Yes - insulin lispro (HUMALOG KWIKPEN INSULIN) 100 unit/mL INJECT 25 UNITS SUBCUTANEOUSLY THREE TIMES DAILY WITH MEALS DIRECTED - dapagliflozin propanediol (FARXIGA) 10 mg tablet Take 1 tablet by mouth daily with breakfast. - insulin detemir U-100 (LEVEMIR) 100 unit/mL (3 mL) injection pen Inject 70 Units subcutaneously daily with breakfast. - insulin detemir U-100 (LEVEMIR U-100 INSULIN) 100 unit/mL injection Inject 70 Units subcutaneously every morning. - valsartan (DIOVAN) 160 mg tablet Take 1 tablet by mouth once daily. - clopidogrel (PLAVIX) 75 mg tablet Take 1 tablet by mouth once daily. - carvedilol (COREG) 12.5 mg tablet Take 1 tablet by mouth twice daily. - furosemide (LASIX) 40 mg tablet Take 1 tablet by mouth once daily. - Insulin Syringe-Needle U-100 1 mL 29 gauge x 1/2 1 Each once daily. USE ONE SYRINGE FOR EACH INSULIN DOSE/ 1 PER DAY - insulin needles, DISPOSABLE, (PEN NEEDLE) 31 gauge x 5/16 Use 4 times daily to inject insulin - blood sugar diagnostic (BLOOD GLUCOSE TEST) test strip Test blood sugar(s) 3 times daily. Dx: 250.02. Insulin: Yes - pantoprazole DR (PROTONIX) 40 mg tablet Take 1 tablet by mouth once daily. - Blood-Glucose Meter misc 1 Each once daily. - Blood Sugar Diagnostic, Drum (ACCU-CHEK COMPACT TEST) strp Test blood sugar(s) 3 times daily. Dx:E11.9 . Insulin: Yes - loratadine (CLARITIN) 10 mg tablet Take 1 tablet by mouth once daily. - Cholecalciferol, Vitamin D3, 1,000 unit cap Take 1 capsule by mouth once daily. - Insulin Turkey, Disposable, (RELION PEN NEEDLES) 32 x 5/32 ndle Use as directed with insulin pen. 250.00. 4 injections/day. On insulin. - Blood-Glucose Meter, Drum-type (ACCU-CHEK COMPACT PLUS CARE) kit Use as directed - cyanocobalamin (VITAMIN B-12) 1,000 mcg tab Take 1 tablet by mouth once daily. - Aspirin 81 mg Tab Take 81 mg by mouth. Meds Comments as of 01/12/2023: Taking OTC Iron tablet once daily. Problem List As Of Date 11/26/2023 Noted Resolved BENIGN HYPERTENSION [I10] 07/17/2005 Hyperlipidemia [E78.5] 07/17/2005 OSTEOARTHROS NOS-UNSPEC [M19.90] 07/17/2005 Allergic rhinitis [J30.9] 07/17/2005 DIFFUS CYSTIC MASTOPATHY [N60.19] 07/17/2005 Type 2 diabetes mellitus with diabetic chronic *04/15/2023 Personal history of transient ischemic attack (*11/15/2013 Morbid obesity with body mass index of 40.0-44.*02/09/2018 Stage 3b chronic kidney disease (HCC) [N18.32] 09/30/2021 10/15/2023 Anemia, unspecified [D64.9] 09/30/2021 Chronic kidney disease, stage 4 (severe) (HCC) *04/15/2023 terminal worker 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 Author Type: ? Type: Progress Notes Filed: 09/21/2023 11:17 AM Note Text: POPULATION HEALTH NAVIGATION OUTREACH Action/ Past due for dilated retinal exam, flu. LVM Patient Identified by Name and : NO Outreach Outcome/Action Unable to reach patient: Left message Did you use a PCP flex slot to schedule this appointment? N/A Reason for Outreach Care Gap or Scheduling/Wellness visits Payer: Payor: NADEEN [employer] / Plan: Mobile [employer] ACCESS / Product Type: PPO / Care Gap Reviewed:: Diabetic Eye Exam Flu Vaccine Reminder: Reminder note to check Health Maintenance for items below Health Maintenance items due: DTaP,Tdap,Td Vaccine(1 - Tdap) Never done RSV Vaccine(1 - 1-dose 60+ series) Never done Dilated Retinal Exam due on 03/11/2019 Influenza Vaccine(1) due on 05/28/2023 Navigation Signature: Danny Williamson September 21, 2023 11:16 AM [facility] 09-21-2023 Note Patient Outreach (NE TNAV) ROSA MYERS ([id number]) 1950 F Date Time Provider Department 09/21/23 DANNY WILLIAMSON ([facility]ANSON) NET[employer] During your visit today, we recorded the following information about you: Clay Danny 09/21/2023 11:17 AM Signed POPULATION HEALTH NAVIGATION OUTREACH Action/FYI Past due for dilated retinal exam, flu. LVM Patient Identified by Name and : NO Outreach Outcome/Action Unable to reach patient: Left message Did you use a PCP flex slot to schedule this appointment? N/A Reason for Outreach Care Gap or Scheduling/Wellness visits Payer: Payor: NADEEN BLUE CROSS AND BLUE [employer] / Plan: [employer] ACCESS / Product Type: PPO / Care Gap Reviewed:: Diabetic Eye Exam Flu Vaccine Reminder: Reminder note to check Health Maintenance for items below Health Maintenance items due: DTaP,Tdap,Td Vaccine(1 - Tdap) Never done RSV Vaccine(1 - 1-dose 60+ series) Never done Dilated Retinal Exam due on 03/11/2019 Influenza Vaccine(1) due on 05/28/2023 Navigation Signature: Danny Clay September 21, 2023 11:16 AM Allergies As of Date: 09/21/2023 Noted Allergy Reaction DIANA INHIBITORS 07/17/2005 NEOMYCIN 07/17/2005 Date Reviewed: 04/15/2023 Reviewed by: Marietta Escalona Ma - Fully Assessed Reason for Visit: Population Health Navigation Outreach [3910] Cmt: Nadeen care gap Prescriptions as of 09/21/2023 - atorvastatin (LIPITOR) 40 mg tablet Take 1 tablet by mouth daily at bedtime. For cholesterol. - blood sugar diagnostic (BLOOD GLUCOSE TEST) test strip Alvina test strips. Test blood sugars once daily as directed. Dx: E11.9. Insulin: Yes - insulin lispro (HUMALOG KWIKPEN INSULIN) 100 unit/mL INJECT 25 UNITS SUBCUTANEOUSLY THREE TIMES DAILY WITH MEALS DIRECTED - dapagliflozin propanediol (FARXIGA) 10 mg tablet Take 1 tablet by mouth daily with breakfast. - insulin detemir U-100 (LEVEMIR) 100 unit/mL (3 mL) injection pen Inject 70 Units subcutaneously daily with breakfast. - insulin detemir U-100 (LEVEMIR U-100 INSULIN) 100 unit/mL injection Inject 70 Units subcutaneously every morning. - valsartan (DIOVAN) 160 mg tablet Take 1 tablet by mouth once daily. - clopidogrel (PLAVIX) 75 mg tablet Take 1 tablet by mouth once daily. - carvedilol (COREG) 12.5 mg tablet Take 1 tablet by mouth twice daily. - furosemide (LASIX) 40 mg tablet Take 1 tablet by mouth once daily. - Insulin Syringe-Needle U-100 1 mL 29 gauge x 1/2 1 Each once daily. USE ONE SYRINGE FOR EACH INSULIN DOSE/ 1 PER DAY - insulin needles, DISPOSABLE, (PEN NEEDLE) 31 gauge x 5/16 Use 4 times daily to inject insulin - blood sugar diagnostic (BLOOD GLUCOSE TEST) test strip Test blood sugar(s) 3 times daily. Dx: 250.02. Insulin: Yes - pantoprazole DR (PROTONIX) 40 mg tablet Take 1 tablet by mouth once daily. - Blood-Glucose Meter misc 1 Each once daily. - Blood Sugar Diagnostic, Drum (ACCU-CHEK COMPACT TEST) strp Test blood sugar(s) 3 times daily. Dx:E11.9 . Insulin: Yes - loratadine (CLARITIN) 10 mg tablet Take 1 tablet by mouth once daily. - Cholecalciferol, Vitamin D3, 1,000 unit cap Take 1 capsule by mouth once daily. - Insulin Turkey, Disposable, (RELION PEN NEEDLES) 32 x 5/32 ndle Use as directed with insulin pen. 250.00. 4 injections/day. On insulin. - Blood-Glucose Meter, Drum-type (ACCU-CHEK COMPACT PLUS CARE) kit Use as directed - cyanocobalamin (VITAMIN B-12) 1,000 mcg tab Take 1 tablet by mouth once daily. - Aspirin 81 mg Tab Take 81 mg by mouth. Meds Comments as of 01/12/2023: Taking OTC Iron tablet once daily. Problem List As Of Date 09/21/2023 Noted Resolved BENIGN HYPERTENSION [I10] 07/17/2005 Hyperlipidemia [E78.5] 07/17/2005 OSTEOARTHROS NOS-UNSPEC [M19.90] 07/17/2005 Allergic rhinitis [J30.9] 07/17/2005 DIFFUS CYSTIC MASTOPATHY [N60.19] 07/17/2005 Type 2 diabetes mellitus with stage 3b chronic *10/21/2005 Personal history of transient ischemic attack (*11/15/2013 Morbid obesity with body mass index of 40.0-44.*02/09/2018 Stage 3b chronic kidney disease (HCC) [N18.32] 09/30/2021 Anemia due to stage 3b chronic kidney disease (*09/30/2021 Chronic kidney disease, stage 4 (severe) (HCC) *04/15/2023 Encounter Status:Closed by DANNY WILLIAMSON on 09/21/23 [facility] 06-21-2023 Miscellaneous Notes Formattin g of this note might be different from the original. Patient notified of results, verbalizes understanding of instructions. Cha Tinajero MA Please let the patient know that we received paperwork from her cardiology office. TSH is mildly elevated at 4. Previous TSH labs from our office have been normal. I added a TSH onto her upcoming blood work in September for her to get so that we can recheck. Maciel Busby APRN.RENEE documented in this encounter [facility] 06-14-2023 Miscellaneous Notes Formattin g of this note is different from the original. The following approved medication requests have been transmitted electronically. Requested Prescriptions Pending Prescriptions Disp Refills dapagliflozin propanediol (FARXIGA) 10 mg tablet 90 tablet 3 Sig: Take 1 tablet by mouth daily with breakfast. Maciel Busby APRN.RENEE SUZANNA: 04/15/23 with PCP NOV: 10/19/22-6 month f/u with PCP Last refill: 06/22/22 -historical med update (Dr. Stallings originally prescribed) Cha Tinajero MA Patient has been identified by name and date of : Yes Last office visit in this department: 04/15/2023 RX INSTRUCTIONS: Patient aware RX will be sent to pharmacy. No need to notify patient. Patient phones requesting refills as follows: Requested Prescriptions Pending Prescriptions Disp Refills dapagliflozin propanediol (FARXIGA) 10 mg tablet Sig: Take 1 tablet by mouth daily with breakfast. Please review and advise. Karlos Weldon documented in this encounter [facility] 04-15-2023 History of Presen t illness Narrative Chief Complaint Patient presents with: F/U 3 Month HPI Rosa Myers is a 73 year old female who presents here today for a 3 month follow up. Pt here today for a 3 month follow up. Here with her son. GI/Uro - Reports bowels doing much better, no longer having diarrhea. GERD Sx controlled with Protonix 40 mg once daily. Taking Iron for anemia due to GI bleed. Does have frequent urination. Lipid/CAD: Taking Plavix 75 mg daily and Lipitor 40 mg daily. Denies watching her diet due to cooking all her meals for her. Denies any exercise. DM: Checking BS once a day with FBS ranging from 160-270 No hypoglycemic episodes. Reports her vision is a little blurry if she eats too much sugar. Has frequent urination. Notes neuropathy sx in feet/legs. Taking Levemir 70 units once daily in the am and Humalog 25 units TID. Notes her recent Rx of Levemir only allows her to give herself 60 units. Does not see Podiatry, but spouse takes care of her feet. HTN and CHF: will check BP occasionally at home, states its pretty good. No chest pain or dizziness. Reports SOB. Still tired, but not as severe as she was. Taking Diovan 160 mg once daily, Farxiga 10 mg daily and Coreg 12.5 mg bid. Pt also taking Lasix 40 mg once daily. Stopped to Aldactone, Cardiology aware of this. Follows with Dr. Garcia, Cardiology. Follows with them every 6 months. Pt notes left lower edema today. Was given referral to Derm at previous OV. Never did f/u with Dermatology for area on forehead and area on tip of her nose. Using Benadryl cream which seems to help. 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 HM - Denies having Adv Dir/Living Will. Denies following with Podiatry. Overdue for eye exam, has not had one in couple years. Pt has declined all HM. Past medical history, appointments, medications, allergies reviewed. Previous Medical History PAST MEDICAL HISTORY Diagnosis Date Allergic rhinitis due to other allergen Essential hypertension, benign Type II or unspecified type diabetes mellitus without mention of complication, uncontrolled Previous Surgical History PAST SURGICAL HISTORY Procedure Laterality Date CATARACT EXTRACTION HX Right 10/26/2017 EGD W/O BRSH SPEC VARICIES INJ N/A 02/24/2022 LIG/TRNSXJ FLP TUBE ABDL/VAG APPR UNI/BI 1987 Tubal ligation LIGJ DIVJ &/EXCJ VARICOSE VEIN CLUSTER 1 LEG 1995 Varicose Vein Surgery TONSILLECTOMY PRIMARY/SECONDARY <AGE 12 Tonsillectomy Family History FAMILY HISTORY Problem Relation Age of Onset Diabetes Father Coronary Artery Disease Father Coronary Artery Disease Mother CABG age 80 Cataract Sister Blindness Sister Blindness Other Patient Allergies ALLERGIES Allergen Reactions Diana Inhibitors Neomycin Current Medications Current Outpatient Medications on File Prior to Visit Medication Sig insulin lispro (HUMALOG KWIKPEN INSULIN) 100 unit/mL INJECT 25 UNITS SUBCUTANEOUSLY THREE TIMES DAILY WITH MEALS DIRECTED valsartan (DIOVAN) 160 mg tablet Take 1 tablet by mouth once daily. clopidogrel (PLAVIX) 75 mg tablet Take 1 tablet by mouth once daily. carvedilol (COREG) 12.5 mg tablet Take 1 tablet by mouth twice daily. furosemide (LASIX) 40 mg tablet Take 1 tablet by mouth once daily. insulin detemir U-100 (LEVEMIR U-100 INSULIN) 100 unit/mL injection Inject 70 Units subcutaneously every morning. Insulin Syringe-Needle U-100 1 mL 29 gauge x 1/2 1 Each once daily. USE ONE SYRINGE FOR EACH INSULIN DOSE/ 1 PER DAY insulin needles, DISPOSABLE, (PEN NEEDLE) 31 gauge x 5/16 Use 4 times daily to inject insulin blood sugar diagnostic (BLOOD GLUCOSE TEST) test strip Test blood sugar(s) 3 times daily. Dx: 250.02. Insulin: Yes blood sugar diagnostic (BLOOD GLUCOSE TEST) test strip Alvina test strips. Test blood sugars once daily as directed. Dx: E11.9. Insulin: Yes insulin detemir U-100 (LEVEMIR) 100 unit/mL (3 mL) injection pen Inject 70 Units subcutaneously daily with breakfast. atorvastatin (LIPITOR) 40 mg tablet Take 1 tablet by mouth daily at bedtime. For cholesterol. dapagliflozin (FARXIGA) 10 mg tablet Take 1 tablet by mouth daily with breakfast. pantoprazole DR (PROTONIX) 40 mg tablet Take 1 tablet by mouth once daily. spironolactone (ALDACTONE) 25 mg tablet Take 1 tablet by mouth once daily. Blood-Glucose Meter misc 1 Each once daily. Blood Sugar Diagnostic, Drum (ACCU-CHEK COMPACT TEST) strp Test blood sugar(s) 3 times daily. Dx:E11.9 . Insulin: Yes loratadine (CLARITIN) 10 mg tablet Take 1 tablet by mouth once daily. Cholecalciferol, Vitamin D3, 1,000 unit cap Take 1 capsule by mouth once daily. Insulin Turkey, Disposable, (RELION PEN NEEDLES) 32 x 5/32 ndle Use as directed with insulin pen. 250.00. 4 injections/day. On insulin. Blood-Glucose Meter, Drum-type (ACCU-CHEK COMPACT PLUS CARE) kit Use as directed cyanocobalamin (VITAMIN B-12) 1,000 mcg tab Take 1 tablet by mouth once daily. Aspirin 81 mg Tab Take 81 mg by mouth. No current facility-administered medications on file prior to visit. Social History Social History Tobacco Use Smoking status: Former Smokeless tobacco: Never Tobacco comments: Quit 1980s Vaping Use Vaping Use: Never used Substance Use Topics Alcohol use: No Drug use: No EXAM: BP 128/70 (BP Site: Left Arm, BP Position: Sitting, BP Cuff Size: Regular Adult) Pulse 70 Resp 20 Wt 116.6 kg (257 lb) General Appearance: Well appearing, alert, in no acute distress, well-hydrated, well nourished. and Obese. Skin: Lesion mid forehead scabbed. Improved from previous OV. Lungs: Lungs clear to auscultation. No wheezing, rhonchi, rales.. Heart: RRR without murmur, gallop, or rubs. No ectopy. Extremities: Edema: Left leg noted. Feet: Shoes and socks removed, No deformities, ulcers, calluses, normal distal pulses, and not sensitive to monofilament Health Maintenance List COVID-19 VACCINE(1) Never done DTAP,TDAP,TD(1 - Tdap) Never done SHINGRIX VACCINE(1 of 2) Never done PNEUMOCOCCAL: 65+(3 - PPSV23 or PCV20) due on 10/25/2015 MAMMOGRAM due on 08/10/2017 DILATED RETINAL EXAM due on 03/11/2019 COLORECTAL CANCER SCREENING due on 06/03/2019 DIABETIC FOOT EXAM due on 05/29/2022 ADVANCE DIRECTIVE DISCUSSION Never done HBA1C due on 04/02/2023 INFLUENZA(1) due on 05/28/2023 LDL CHOLESTEROL due on 01/02/2024 SERUM CREATININE due on 01/02/2024 HEMOGLOBIN/HEMATOCRIT due on 01/02/2024 ANNUAL PCP TEAM CHRONIC DISEASE VISIT due on 01/13/2024 BP CONTROLLED (<130/80) due on 01/13/2024 DEPRESSION ASSESSMENT Completed HEPATITIS C SCREENING Completed BONE DENSITY Addressed Data reviewed Appointment on 04/10/2023 Component Date Value Protein, Total 04/10/2023 6.7 Albumin 04/10/2023 4.0 Calcium, Total 04/10/2023 9.2 Bilirubin, Total 04/10/2023 0.5 Alkaline Phosphatase 04/10/2023 88 AST 04/10/2023 17 ALT 04/10/2023 13 Glucose 04/10/2023 252 (H) BUN 04/10/2023 32 (H) Creatinine 04/10/2023 1.83 (H) Sodium 04/10/2023 141 Potassium 04/10/2023 4.3 Chloride 04/10/2023 102 CO2 04/10/2023 22 Anion Gap 04/10/2023 17 Estimated Glomerular Checo* 04/10/2023 29 (L) Cholesterol, Total 04/10/2023 126 Triglyceride 04/10/2023 149 HDL Cholesterol 04/10/2023 32 (L) Non HDL Cholesterol 04/10/2023 94 Fasting Time 04/10/2023 12 VLDL Cholesterol 04/10/2023 30 (H) TC:HDL Ratio 04/10/2023 3.94 LDL Cholesterol 04/10/2023 64 LDL:HDL Ratio 04/10/2023 2.00 Hemoglobin A1C 04/10/2023 7.1 (H) Estimated Average Glucose 04/10/2023 157 ASSESSMENT/PLAN: 1. Type 2 diabetes mellitus with stage 3b chronic kidney disease, without long-term current use of insulin (HCC) - ICD9: 250.40, 585.3, ICD10: E11.22, N18.32 (primary diagnosis) - Controlled - Continue current medications - Counseled on healthy diet and regular exercise - stable CKD function - COMP METABOLIC PANEL - HGB A1C 2. Essential hypertension, benign - ICD9: 401.1, ICD10: I10 - Controlled - Continue current medications - Recommend home blood pressure monitoring, to bring results to next visit - Encouraged sodium restriction, DASH or Mediterranean diet - Recommend regular aerobic exercise - COMP METABOLIC PANEL - LIPID PANEL BASIC 3. Hyperlipidemia, unspecified hyperlipidemia type - ICD9: 272.4, ICD10: E78.5 - Controlled - Continue current medications - Counseled on healthy diet and regular exercise - COMP METABOLIC PANEL - LIPID PANEL BASIC 4. Chronic kidney disease, stage 4 (severe) ([facility]) - ICD9: 585.4, ICD10: N18.4 - Stable - Counseled on avoiding NSAIDs, adequate hydration - Counseled on low sodium diet - Cont monitor through labs - COMP METABOLIC PANEL 5. Congestive heart failure, unspecified HF chronicity, unspecified heart failure type (HCC) - ICD9: 428.0, ICD10: I50.9 Stable - Continue current medication regimen. 6. Bilateral leg edema - ICD9: 782.3, ICD10: R60.0 - Continue current medication regimen. 7. H/O: GI bleed - ICD9: V12.79, ICD10: Z87.19 - Cont check routine labs - Okay to stop Pantoprazole, to update office if GI symptoms return - CBC + DIFF 8. Anemia, unspecified type - ICD9: 285.9, ICD10: D64.9 - Continue current medication regimen. - CBC + DIFF 9. Skin lesion - ICD9: 709.9, ICD10: L98.9 - Cont to monitor 10. Morbid obesity with body mass index of 40.0-44.9 in adult ([facility]) - ICD9: 278.01, V85.41, ICD10: E66.01, Z68.41 Stable - Cont watching diet 6 mo f/u with labs. I agree with the Chief Complaint, ROS, and Past Histories independently gathered by the clinical application support engineer and the remaining scribed note accurately describes my personal service to the patient. Medical Decision Making: Problems: Moderate: 2+ stable chronic illnesses Data: Unique test result(s) reviewed: 3+ Unique test(s) ordered: 3+ Risk: Moderate: Drug management Medical Decision Making Level: 4 - Moderate Amado Lopes MD The documentation for this note was completed by Marietta Escalona Ma acting as scribe for Amado Lopes MD. April 15, 2023 3:50 PM. Marietta Escalona Ma documented in this encounter [facility] 01-25-2023 History of Presen t illness Narrative POPULATION HEALTH NAVIGATION OUTREACH Action/FYI Spoke with patient who declines to schedule Colonoscopy, TERESA and mammogram Patient Identified by Name and : YES, via phone Outreach Outcome/Action Spoke to patient / parent / legal guardian: Patient declined Did you use a PCP flex slot to schedule this appointment? N/A Reason for Outreach Care Gap or Scheduling/Wellness visits Payer: Payor: [id number] / Plan: [employer] ACCESS / Product Type: PPO / Care Gap Reviewed:: Breast Cancer screening Colorectal Cancer Screening Diabetic Eye Exam Reminder: Reminder note to check Health Maintenance for items below Health Maintenance items due: DTAP,TDAP,TD(1 - Tdap) Never done SHINGRIX VACCINE(1 of 2) Never done PNEUMOCOCCAL: 65+(3 - PPSV23 if available, else PCV20) due on 10/25/2015 MAMMOGRAM due on 08/10/2017 DILATED RETINAL EXAM due on 03/11/2019 COLORECTAL CANCER SCREENING due on 06/03/2019 DIABETIC FOOT EXAM due on 05/29/2022 ADVANCE DIRECTIVE DISCUSSION Never done Navigation Signature: Samia Hollingsworth Population Health Navigator January 25, 2023 10:41 AM documented in this encounter [facility] 01-18-2023 Miscellaneous Notes Formattin g of this note might be different from the original. Order report for Humalog faxed to [facility], notifying them to fill. Mariza Graham Ma Rosa Myers is calling Amado Lopes MD today with concern regarding the RX for Humalog kwikpen has not been received at the [facility] pharmacy in [place]. Please send today if possible. Patient states she did call our office and was advised this RX was already sent to [facility]. Patient notes the pharmacy has checked for this new RX and they state they do not have receipt of this. Patient has been identified by name and birthdate. Duration of symptoms: N/A Person calling: self Call patient at: at home [phone] (home) Was an appointment scheduled: No Closing statement: Results or non-symptom based questions: Thank you for calling [facility], your call will be returned within the next business day. [employer] documented in this encounter [facility] 12-23-2022 History of Presen t illness Narrative Rosa Myers is identified through a medication adherence outreach initiative based on pharmacy claims data from [employer] (insurer) for Non-insulin DM medication(s). Patient is reviewed 12/23/22 due to medication adherence concerns with the following medications (name, strength, sig): Farxiga 10mg, QD. Per reconcile dispense, last fill date and days supply: Filled 12/15/22 for 30 day supply Outcome of review/outreach: (choose outcome source and status) - Filled before Next fill date per reconcile dispense Sanaz Duarte ([employer]) documented in this encounter [facility] 12-14-2022 Miscellaneous Notes Formattin g of this note is different from the original. The following approved medication requests have been transmitted electronically. Requested Prescriptions Pending Prescriptions Disp Refills valsartan (DIOVAN) 160 mg tablet 90 tablet 3 Sig: Take 1 tablet by mouth once daily. clopidogrel (PLAVIX) 75 mg tablet 90 tablet 3 Sig: Take 1 tablet by mouth once daily. carvedilol (COREG) 12.5 mg tablet 180 tablet 3 Sig: Take 1 tablet by mouth twice daily. Maciel Busby APRN.CNP Patient has been identified by name and date of : Yes Requested Prescriptions Pending Prescriptions Disp Refills valsartan (DIOVAN) 160 mg tablet 90 tablet 3 Sig: Take 1 tablet by mouth once daily. clopidogrel (PLAVIX) 75 mg tablet 90 tablet 3 Sig: Take 1 tablet by mouth once daily. carvedilol (COREG) 12.5 mg tablet 180 tablet 3 Sig: Take 1 tablet by mouth twice daily. RX INSTRUCTIONS: Patient aware RX will be sent to pharmacy. No need to notify patient. Pushpa Neff Pss documented in this encounter [facility] 11-03-2022 Miscellaneous Notes Formattin g of this note is different from the original. The following approved medication requests have been transmitted electronically. Requested Prescriptions Signed Prescriptions Disp Refills insulin detemir U-100 (LEVEMIR U-100 INSULIN) 100 unit/mL injection 10 mL 5 Sig: Inject 70 Units subcutaneously every morning. Authorizing Provider: AMADO LOPES Insulin Syringe-Needle U-100 1 mL 29 gauge x 1/2 50 Each 11 Si Each once daily. USE ONE SYRINGE FOR EACH INSULIN DOSE/ 1 PER DAY Authorizing Provider: AMADO LOPES Ma Levemir vials and insulin syringes ordered Amado Lopes MD Jacqueline Carrero called and they are not able to get the Levemir pens because they are making changes on this. Asking if they can give the vials and syringes will be needed also. Please advise the pharmacy with new prescriptions. Kathi Crane LPN documented in this encounter [facility] 07-15-2022 Miscellaneous Notes Formattin g of this note might be different from the original. OK to refill as ordered Amado Lopes MD Patient has been identified by name and date of : Yes Patient phones for refill(s): Requested Prescriptions Pending Prescriptions Disp Refills insulin lispro (HUMALOG KWIKPEN INSULIN) 100 unit/mL 30 Each 3 Sig: INJECT 20 UNITS SUBCUTANEOUSLY THREE TIMES DAILY WITH MEALS DIRECTED insulin needles, DISPOSABLE, (PEN NEEDLE) 31 gauge x 5/16 150 Each 11 Sig: Use 4 times daily to inject insulin blood sugar diagnostic (BLOOD GLUCOSE TEST) test strip 100 Each 3 Sig: Alvina test strips. Test blood sugars once daily as directed. Dx: E11.9. Insulin: Yes blood sugar diagnostic (BLOOD GLUCOSE TEST) test strip 150 Strip 11 Sig: Test blood sugar(s) 3 times daily. Dx: 250.02. Insulin: Yes PATIENT REPORTS THAT THE PHARMACY DID NOT RECEIVE THE ABOVE MENTIONED ORDERS Date of last office visit in primary care: 07/13/22 Last 2 Encounter Wt Readings: Date: Wt: 07/13/2022 114.3 kg (252 lb) 04/07/2022 118.4 kg (261 lb) Previous labs/tests for medication: Not applicable Please advise. Thank you. Rufina Stuart documented in this encounter [facility] 07-14-2022 Miscellaneous Notes Formattin g of this note is different from the original. The following approved medication requests have been transmitted electronically. Requested Prescriptions Pending Prescriptions Disp Refills blood sugar diagnostic (BLOOD GLUCOSE TEST) test strip 100 Each 3 Sig: Alvina test strips. Test blood sugars once daily as directed. Dx: E11.9. Insulin: Yes Maciel Busby APRN.CNP Patient has been identified by name and date of : Yes Requested Prescriptions Pending Prescriptions Disp Refills blood sugar diagnostic (BLOOD GLUCOSE TEST) test strip 100 Each 3 Sig: Alvina test strips. Test blood sugars once daily as directed. Dx: E11.9. Insulin: Yes Patient also asking for pen needles. RX INSTRUCTIONS: Patient aware RX will be sent to pharmacy. No need to notify patient. Nata Bear documented in this encounter [facility] 07-13-2022 History of Presen t illness Narrative Chief Complaint Patient presents with: F/U 3 Month HPI Bernajosé miguel Myers is a 72 year old female who presents here today for a 3 month follow up. Pt here today for a 3 month follow up. Here today with her son, Marcell, JONY - Was prescribed Protonix 40 mg bid, but is now out of medication and wondering if this is something she needs to continue. Pt after hospital visit was to f/u with Dr. Power, this has not been completed. HTN - Denies checking BP at home. Denies symptoms of chest pain or dizziness. Chronic sob. On current regimen of Diovan 160 mg once daily, Aldactone 25 mg daily and Coreg 12.5 mg bid. Pt also taking Lasix 40 mg bid. Pt stopped taking Aldactone due to having to urinate all the time and waking up 3-4 times to urinate. Asking about taking Aldactone vs Lasix; will go with just lasix for now. DM - Checking sugars 1-2 times daily with FBS this am of 170. Pt's sugar generally ranges around 200's, occasionally higher. She denies any low blood sugars, but admits to neuropathy symptoms in bilateral feet. On current regimen of Levemir 70 units once daily in the am and Humalog 20 units TID. Lipid/CAD - On current regimen of Lipitor 40 mg once daily and Plavix 75 mg once daily. Anemia - Started back on Iron supplement due to GI bleed and continued anemia. Pt advised at previous visit that she needs to continue taking Iron once daily. Pt was not taking this at last visit. CHF - Follows with Dr. Stallings, recently seen on 06/03/22. Stress test completed on 06/17/22. On current regimen of Lasix 40 mg bid and Aldactone 25 mg once daily. Notes that edema is stable at current time. Still has sob with minimal activity. Reports some dizziness when first getting up in the morning. Feels her edema is doing better. Wants to discuss Aldactone vs Lasix. Derm - Area mid forehead that has been there chronically but recently flared up over the past month. Area is scabbed. She denies any pain other then sometimes feeling the scab is tight on her forehead. Admits she does pick the area sometimes. HM - Declines Flu shot. Declines Mammogram. Declines having Adv Dir/Living Will. Due for DM Eye exam, notes that she will not be going. Past medical history, appointments, medications, allergies reviewed. Previous Medical History PAST MEDICAL HISTORY Diagnosis Date Allergic rhinitis due to other allergen Essential hypertension, benign Type II or unspecified type diabetes mellitus without mention of complication, uncontrolled Previous Surgical History PAST SURGICAL HISTORY Procedure Laterality Date CATARACT EXTRACTION HX Right 10/26/2017 EGD W/O BRSH SPEC VARICIES INJ N/A 02/24/2022 LIG/TRNSXJ FLP TUBE ABDL/VAG APPR UNI/BI 1987 Tubal ligation LIGJ DIVJ &/EXCJ VARICOSE VEIN CLUSTER 1 LEG 1995 Varicose Vein Surgery TONSILLECTOMY PRIMARY/SECONDARY <AGE 10 Tonsillectomy Family History FAMILY HISTORY Problem Relation Age of Onset Diabetes Father Coronary Artery Disease Father Coronary Artery Disease Mother CABG age 80 Cataract Sister Blindness Sister Blindness Other Patient Allergies ALLERGIES Allergen Reactions Diana Inhibitors Neomycin Current Medications Current Outpatient Medications on File Prior to Visit Medication Sig dapagliflozin (FARXIGA) 10 mg tablet Take 1 tablet by mouth daily with breakfast. blood sugar diagnostic (BLOOD GLUCOSE TEST) test strip Alvina test strips. Test blood sugars once daily as directed. Dx: E11.9. Insulin: Yes pantoprazole DR (PROTONIX) 40 mg tablet Take 1 tablet by mouth once daily. insulin detemir U-100 (LEVEMIR) 100 unit/mL (3 mL) injection pen Inject 70 Units subcutaneously daily with breakfast. insulin lispro (HUMALOG KWIKPEN INSULIN) 100 unit/mL INJECT 20 UNITS SUBCUTANEOUSLY THREE TIMES DAILY WITH MEALS DIRECTED furosemide (LASIX) 40 mg tablet Take 1 tablet by mouth once daily. clopidogrel (PLAVIX) 75 mg tablet Take 1 tablet by mouth once daily. valsartan (DIOVAN) 160 mg tablet Take 1 tablet by mouth once daily. carvedilol (COREG) 12.5 mg tablet Take 1 tablet by mouth twice daily. atorvastatin (LIPITOR) 40 mg tablet Take 1 tablet by mouth daily at bedtime. For cholesterol. spironolactone (ALDACTONE) 25 mg tablet Take 1 tablet by mouth once daily. blood sugar diagnostic (BLOOD GLUCOSE TEST) test strip Test blood sugar(s) 3 times daily. Dx: 250.02. Insulin: Yes Blood-Glucose Meter misc 1 Each once daily. Blood Sugar Diagnostic, Drum (ACCU-CHEK COMPACT TEST) strp Test blood sugar(s) 3 times daily. Dx:E11.9 . Insulin: Yes loratadine (CLARITIN) 10 mg tablet Take 1 tablet by mouth once daily. Cholecalciferol, Vitamin D3, 1,000 unit cap Take 1 capsule by mouth once daily. insulin needles, DISPOSABLE, (PEN NEEDLE) 31 gauge x 5/16 ndle Use 4 times daily to inject insulin Insulin Turkey, Disposable, (RELION PEN NEEDLES) 32 x 5/32 ndle Use as directed with insulin pen. 250.00. 4 injections/day. On insulin. Blood-Glucose Meter, Drum-type (ACCU-CHEK COMPACT PLUS CARE) kit Use as directed cyanocobalamin (VITAMIN B-12) 1,000 mcg tab Take 1 tablet by mouth once daily. Aspirin 81 mg Tab Take 81 mg by mouth. No current facility-administered medications on file prior to visit. Social History Social History Tobacco Use Smoking status: Former Smokeless tobacco: Never Tobacco comments: Quit 1980s Vaping Use Vaping Use: Never used Substance Use Topics Alcohol use: No Drug use: No EXAM: BP 124/80 (BP Site: Left Arm, BP Position: Sitting, BP Cuff Size: Regular Adult) Pulse 64 Resp 20 Wt 114.3 kg (252 lb) General Appearance: Well appearing, alert, in no acute distress, well-hydrated, well nourished. and Obese. Lungs: Lungs clear to auscultation. No wheezing, rhonchi, rales.. Heart: RRR without murmur, gallop, or rubs. No ectopy. Extremities: Edema: Stable on exam. Health Maintenance List DTAP,TDAP,TD(1 - Tdap) Never done SHINGRIX VACCINE(1 of 2) Never done PNEUMOCOCCAL: 65+(3 - PPSV23 if available, else PCV20) due on 10/25/2015 MAMMOGRAM due on 08/10/2017 DILATED RETINAL EXAM due on 03/11/2019 COLORECTAL CANCER SCREENING due on 06/03/2019 ADVANCE DIRECTIVE DISCUSSION Never done DEPRESSION ASSESSMENT Never done INFLUENZA(1) due on 05/28/2022 DIABETIC FOOT EXAM due on 05/29/2022 COVID-19 VACCINE(1) due on 04/07/2023 HBA1C due on 10/06/2022 ANNUAL PCP TEAM CHRONIC DISEASE VISIT due on 04/07/2023 BP CONTROLLED (<130/80) due on 04/07/2023 LDL CHOLESTEROL due on 07/06/2023 SERUM CREATININE due on 07/06/2023 HEMOGLOBIN/HEMATOCRIT due on 07/06/2023 HEPATITIS C SCREENING Completed BONE DENSITY Addressed Data reviewed Appointment on 07/06/2022 Component Date Value Protein, Total 07/06/2022 7.0 Albumin 07/06/2022 4.4 Calcium, Total 07/06/2022 9.8 Bilirubin, Total 07/06/2022 0.5 Alkaline Phosphatase 07/06/2022 95 AST 07/06/2022 12 (A) ALT 07/06/2022 12 Glucose 07/06/2022 281 (A) BUN 07/06/2022 45 (A) Creatinine 07/06/2022 2.08 (A) Sodium 07/06/2022 137 Potassium 07/06/2022 5.2 (A) Chloride 07/06/2022 103 CO2 07/06/2022 20 (A) Anion Gap 07/06/2022 14 Estimated Glomerular Checo* 07/06/2022 25 (A) Hemoglobin A1C 07/06/2022 8.0 (A) Estimated Average Glucose 07/06/2022 183 Cholesterol, Total 07/06/2022 144 Triglyceride 07/06/2022 229 (A) HDL Cholesterol 07/06/2022 29 (A) Non HDL Cholesterol 07/06/2022 115 Fasting Time 07/06/2022 13 VLDL Cholesterol 07/06/2022 46 (A) TC:HDL Ratio 07/06/2022 4.97 LDL Cholesterol 07/06/2022 69 LDL:HDL Ratio 07/06/2022 2.38 WBC 07/06/2022 8.46 RBC 07/06/2022 4.16 Hemoglobin 07/06/2022 10.7 (A) Hematocrit 07/06/2022 34.9 (A) MCV 07/06/2022 83.9 MCH 07/06/2022 25.7 (A) MCHC 07/06/2022 30.7 RDW-CV 07/06/2022 17.0 (A) Platelet Count 07/06/2022 234 MPV 07/06/2022 11.6 Neut% 07/06/2022 71.8 Abs Neut 07/06/2022 6.09 Lymph% 07/06/2022 15.4 Abs Lymph 07/06/2022 1.30 [place]% 07/06/2022 9.6 Abs [place] 07/06/2022 0.81 Eosin% 07/06/2022 1.7 Abs Eosin 07/06/2022 0.14 Baso% 07/06/2022 1.1 Abs Baso 07/06/2022 0.09 Immature Gran % 07/06/2022 0.4 Abs Immature Gran 07/06/2022 0.03 NRBC 07/06/2022 0.0 Absolute nRBC 07/06/2022 <0.01 Diff Type 07/06/2022 Auto ASSESSMENT/PLAN: 1. Controlled type 2 diabetes mellitus without complication, with long-term current use of insulin ([facility]) - ICD9: 250.00, V58.67, ICD10: E11.9, Z79.4 (primary diagnosis) worsening control - Continue current medications - INSULIN DETEMIR (U-100) 100 UNIT/ML (3 ML) SUBCUTANEOUS PEN - COMP METABOLIC PANEL - HGB A1C 2. Essential hypertension, benign - ICD9: 401.1, ICD10: I10 - good control - Continue current medication(s) - Recommended regular aerobic exercise. - Recommend home blood pressure monitoring, to bring results in on next visit - Goal of BP <130/80 - COMP METABOLIC PANEL - LIPID PANEL BASIC 3. Stage 3b chronic kidney disease (HCC) - ICD9: 585.3, ICD10: N18.32 - Stable - cont to monitor with labs 4. Hyperlipidemia, unspecified hyperlipidemia type - ICD9: 272.4, ICD10: E78.5 - good control - Continue current medication. - ATORVASTATIN 40 MG TABLET - COMP METABOLIC PANEL - LIPID PANEL BASIC 5. Congestive heart failure, unspecified HF chronicity, unspecified heart failure type (HCC) - ICD9: 428.0, ICD10: I50.9 Stable - Continue current medication regimen. - Denies any SI/HI 6. SOB (shortness of breath) - ICD9: 786.05, ICD10: R06.02 - Stable, the same - Continue current medication regimen. 7. Bilateral leg edema - ICD9: 782.3, ICD10: R60.0 - Stable today, continue Lasix. Okay to stay off Aldactone; K+ level elevated 8. Anemia, unspecified type - ICD9: 285.9, ICD10: D64.9 - Cont taking daily iron - See Dr. Power 9. H/O: GI bleed - ICD9: V12.79, ICD10: Z87.19 - Cont to monitor CBC 6 mo f/u with labs I agree with the Chief Complaint, ROS, and Past Histories independently gathered by the clinical application support engineer and the remaining scribed note accurately describes my personal service to the patient. Medical Decision Making: Problems: Moderate: 2+ stable chronic illnesses Data: Unique test result(s) reviewed: 3+ Unique test(s) ordered: 3+ Risk: Moderate: Drug management Medical Decision Making Level: 4 - Moderate Amado Loeps MD The documentation for this note was completed by Marietta Escalona Ma acting as scribe for Amado Lopes MD. July 13, 2022 3:36 PM. Marietta Escalona Ma documented in this encounter [facility] 04-07-2022 Instructions Marietta Escalona Ma - 04/07/2022 3:35 PM EDT Anemia - Take Iron once daily, may only need to take for a few months. Gastro - Continue to take Protonix 40 mg once daily. New prescription has been sent into the pharmacy. Skin - Refer to Dermatology to evaluate the area, if not improving. documented in this encounter [facility] 04-07-2022 History of Presen t illness Narrative Chief Complaint Patient presents with: F/U 6 Month HPI Rosa Myers is a 72 year old female who presents here today for 6 month follow up. Pt here today for her routine 6 month follow up. Pt seen in office on 03/18/22 for a hospital f/u. Pt here today with her [id number], Ave. GI - Was prescribed Protonix 40 mg bid, but is now out of medication and wondering if this is something she needs to continue. Denies knowing that she needs a f/u visit with Dr. Power. Derm - Area mid forehead that has been there chronically but recently flared up over the past month. Area is scabbed. She denies any pain other then sometimes feeling the scab is tight on her forehead. Admits she does pick the area sometimes. Anemia - Started back on Iron supplement due to GI bleed and continued anemia. Pt today states that she is currently not taking Iron as it makes her just have to take one more pill . She does drink Ensure to help replace this. CHF - Follows with Dr. Stallings, supposed to f/u with him when she was d/c from the hospital. On current regimen of Lasix 40 mg bid and Aldactone 25 mg once daily. Notes that edema is stable at current time. Still has sob with minimal activity. Pt unable to get in to see Dr. Stallings until May. HTN - Denies checking BP at home. Denies symptoms of chest pain or dizziness. Chronic sob. On current regimen of Diovan 160 mg once daily, Aldactone 25 mg daily and Coreg 12.5 mg bid. Pt also taking Lasix 40 mg bid. DM - Checking sugars twice daily with FBS this am of 233. She denies any low blood sugars, but admits to neuropathy symptoms in bilateral feet. On current regimen of Levemir 70 units once daily in the am and Humalog 20 units TID. Pt states that she refused to do Urine testing, doesn't want to do this. Lipid/CAD - On current regimen of Lipitor 40 mg once daily and Plavix 75 mg once daily. HM - Declines Xipin vaccines. Does not have Adv Dir/Living Will. Past medical history, appointments, medications, allergies reviewed. Previous Medical History PAST MEDICAL HISTORY Diagnosis Date Allergic rhinitis due to other allergen Essential hypertension, benign Type II or unspecified type diabetes mellitus without mention of complication, uncontrolled Previous Surgical History PAST SURGICAL HISTORY Procedure Laterality Date CATARACT EXTRACTION HX Right 10/26/2017 EGD W/O BRS SPEC VARICIES INJ N/A 02/24/2022 LIG/TRNSXJ FLP TUBE ABDL/VAG APPR UNI/BI 1987 Tubal ligation LIGJ DIVJ &/EXCJ VARICOSE VEIN CLUSTER 1 LEG 1995 Varicose Vein Surgery TONSILLECTOMY PRIMARY/SECONDARY <AGE 10 Tonsillectomy Family History FAMILY HISTORY Problem Relation Age of Onset Diabetes Father Coronary Artery Disease Father Coronary Artery Disease Mother CABG age 80 Cataract Sister Blindness Sister Blindness Other Patient Allergies ALLERGIES Allergen Reactions Diana Inhibitors Neomycin Current Medications Current Outpatient Medications on File Prior to Visit Medication Sig pantoprazole DR (PROTONIX) 40 mg tablet Take 40 mg by mouth twice daily. insulin detemir U-100 (LEVEMIR) 100 unit/mL (3 mL) injection pen Inject 70 Units subcutaneously daily with breakfast. insulin lispro (HUMALOG KWIKPEN INSULIN) 100 unit/mL INJECT 20 UNITS SUBCUTANEOUSLY THREE TIMES DAILY WITH MEALS DIRECTED furosemide (LASIX) 40 mg tablet Take 1 tablet by mouth once daily. clopidogrel (PLAVIX) 75 mg tablet Take 1 tablet by mouth once daily. valsartan (DIOVAN) 160 mg tablet Take 1 tablet by mouth once daily. carvedilol (COREG) 12.5 mg tablet Take 1 tablet by mouth twice daily. atorvastatin (LIPITOR) 40 mg tablet Take 1 tablet by mouth daily at bedtime. For cholesterol. spironolactone (ALDACTONE) 25 mg tablet Take 1 tablet by mouth once daily. blood sugar diagnostic (BLOOD GLUCOSE TEST) test strip Alvina test strips. Test blood sugars once daily as directed. Dx: E11.9. Insulin: Yes blood sugar diagnostic (BLOOD GLUCOSE TEST) test strip Test blood sugar(s) 3 times daily. Dx: 250.02. Insulin: Yes Blood-Glucose Meter misc 1 Each once daily. Blood Sugar Diagnostic, Drum (ACCU-CHEK COMPACT TEST) strp Test blood sugar(s) 3 times daily. Dx:E11.9 . Insulin: Yes loratadine (CLARITIN) 10 mg tablet Take 1 tablet by mouth once daily. Cholecalciferol, Vitamin D3, 1,000 unit cap Take 1 capsule by mouth once daily. insulin needles, DISPOSABLE, (PEN NEEDLE) 31 gauge x 5/16 ndle Use 4 times daily to inject insulin Insulin Turkey, Disposable, (RELION PEN NEEDLES) 32 x 5/32 ndle Use as directed with insulin pen. 250.00. 4 injections/day. On insulin. Blood-Glucose Meter, Drum-type (ACCU-CHEK COMPACT PLUS CARE) kit Use as directed cyanocobalamin (VITAMIN B-12) 1,000 mcg tab Take 1 tablet by mouth once daily. Aspirin 81 mg Tab Take 81 mg by mouth. No current facility-administered medications on file prior to visit. Social History Social History Tobacco Use Smoking status: Former Smoker Smokeless tobacco: Never Used Tobacco comment: Quit 1980s Vaping Use Vaping Use: Never used Substance Use Topics Alcohol use: No Drug use: No EXAM: BP 126/68 (BP Site: Left Arm, BP Position: Sitting, BP Cuff Size: Large Adult) Pulse 78 Resp 20 Wt 118.4 kg (261 lb) General Appearance: Well appearing, alert, in no acute distress, well-hydrated, well nourished. and Obese. Skin: Area mid forehead, scabbed in appearance. Lungs: Lungs clear to auscultation. No wheezing, rhonchi, rales.. Heart: RRR without murmur, gallop, or rubs. No ectopy. Extremities: Edema: Minimal noted on today's visit. Health Maintenance List COVID-19 VACCINE(1) Never done - Declines DTAP,TDAP,TD(1 - Tdap) Never done SHINGRIX VACCINE(1 of 2) Never done PNEUMOCOCCAL: 65+(3 - PPSV23 or PCV20) due on 10/25/2015 MAMMOGRAM due on 08/10/2017 DILATED RETINAL EXAM due on 03/11/2019 COLORECTAL CANCER SCREENING due on 06/03/2019 ADVANCE DIRECTIVE DISCUSSION Never done DEPRESSION SCREENING due on 02/26/2022 - Completed. HBA1C due on 03/23/2022 INFLUENZA(Season Ended) due on 05/28/2022 DIABETIC FOOT EXAM due on 05/29/2022 LDL CHOLESTEROL due on 09/22/2022 SERUM CREATININE due on 09/22/2022 HEMOGLOBIN/HEMATOCRIT due on 09/22/2022 ANNUAL PCP TEAM CHRONIC DISEASE VISIT due on 03/18/2023 BP CONTROLLED (<130/80) due on 03/18/2023 HEPATITIS C SCREENING Completed BONE DENSITY Addressed Data reviewed Appointment on 04/02/2022 Component Date Value Cholesterol, Total 04/02/2022 127 Triglyceride 04/02/2022 203 (A) HDL Cholesterol 04/02/2022 32 (A) Non HDL Cholesterol 04/02/2022 95 Fasting Time 04/02/2022 12 VLDL Cholesterol 04/02/2022 41 (A) TC:HDL Ratio 04/02/2022 3.97 LDL Cholesterol 04/02/2022 54 LDL:HDL Ratio 04/02/2022 1.69 Protein, Total 04/02/2022 7.6 Albumin 04/02/2022 4.4 Calcium, Total 04/02/2022 9.9 Bilirubin, Total 04/02/2022 0.7 Alkaline Phosphatase 04/02/2022 94 AST 04/02/2022 15 ALT 04/02/2022 12 Glucose 04/02/2022 375 (A) BUN 04/02/2022 49 (A) Creatinine 04/02/2022 2.07 (A) Sodium 04/02/2022 135 (A) Potassium 04/02/2022 4.9 Chloride 04/02/2022 96 (A) CO2 04/02/2022 21 (A) Anion Gap 04/02/2022 18 Estimated Glomerular [place]* 04/02/2022 25 (A) Hemoglobin A1C 04/02/2022 7.5 (A) Estimated Average Glucose 04/02/2022 169 WBC 04/02/2022 10.90 RBC 04/02/2022 3.52 (A) Hemoglobin 04/02/2022 9.0 (A) Hematocrit 04/02/2022 29.7 (A) MCV 04/02/2022 84.4 MCH 04/02/2022 25.6 (A) MCHC 04/02/2022 30.3 (A) RDW-CV 04/02/2022 17.3 (A) Platelet Count 04/02/2022 232 MPV 04/02/2022 11.8 Neut% 04/02/2022 79.9 Abs Neut 04/02/2022 8.70 (A) Lymph% 04/02/2022 10.7 Abs Lymph 04/02/2022 1.17 [place]% 04/02/2022 7.3 Abs [place] 04/02/2022 0.80 Eosin% 04/02/2022 1.1 Abs Eosin 04/02/2022 0.12 Baso% 04/02/2022 0.7 Abs Baso 04/02/2022 0.08 Immature Gran % 04/02/2022 0.3 Abs Immature Gran 04/02/2022 0.03 NRBC 04/02/2022 0.0 Absolute nRBC 04/02/2022 <0.01 Diff Type 04/02/2022 Auto ASSESSMENT/PLAN: 1. Controlled type 2 diabetes mellitus without complication, with long-term current use of insulin (HCC) - ICD9: 250.00, V58.67, ICD10: E11.9, Z79.4 (primary diagnosis) Controlled. - Continue current medications 2. Essential hypertension, benign - ICD9: 401.1, ICD10: I10 - good control - Continue current medication(s) - Recommend home blood pressure monitoring, to bring results in on next visit - Goal of BP <140/90 3. Stage 3b chronic kidney disease (HCC) - ICD9: 585.3, ICD10: N18.32 4. Hyperlipidemia, unspecified hyperlipidemia type - ICD9: 272.4, ICD10: E78.5 5. Congestive heart failure, unspecified HF chronicity, unspecified heart failure type (HCC) - ICD9: 428.0, ICD10: I50.9 Stable Continue current medications. 6. Bilateral leg edema - ICD9: 782.3, ICD10: R60.0 - Stable 7. SOB (shortness of breath) - ICD9: 786.05, ICD10: R06.02 - Stable - See Cardio 8. Anemia, unspecified type - ICD9: 285.9, ICD10: D64.9 - Take iron once daily. 9. H/O: GI bleed - ICD9: V12.79, ICD10: Z87.19 - Cont Protonix 40 mg once daily Follow up in 3 months Recommend Derm consult for forehead lesion; pt will wait I agree with the Chief Complaint, ROS, and Past Histories independently gathered by the clinical application support engineer and the remaining scribed note accurately describes my personal service to the patient. Medical Decision Making: Problems: Moderate: 2+ stable chronic illnesses Data: Unique test result(s) reviewed: 3+ Unique test(s) ordered: 3+ Risk: Moderate: Drug management Medical Decision Making Level: 4 - Moderate Amado Lopes MD The documentation for this note was completed by Marietta Escalona Ma acting as scribe for Amado Lopes MD. April 07, 2022 3:43 PM. Marietta Escalona Ma documented in this encounter [facility] 03-16-2022 History of Presen t illness Narrative POPULATION HEALTH NAVIGATION OUTREACH Action/FYI Vm left for a return call Due for TERESA, colonoscopy and mammogram Pt identified by name and : NO Outreach Outcome/Action Unable to reach patient: Left message Did you use a PCP flex slot to schedule this appointment? N/A Reason for Outreach Care Gap or Scheduling/Wellness visits Payer: Payor: [employer] BLUE [employer] / Plan: [employer] ACCESS / Product Type: PPO / Care Gap Reviewed:: Breast Cancer screening Colorectal Cancer Screening Diabetic Eye Exam Reminder: Reminder note to check Health Maintenance for items below Health Maintenance items due: COVID-19 VACCINE(1) Never done DTAP,TDAP,TD(1 - Tdap) Never done SHINGRIX VACCINE(1 of 2) Never done PNEUMOCOCCAL: 65+(3 - PPSV23 or PCV20) due on 10/25/2015 MAMMOGRAM due on 08/10/2017 DILATED RETINAL EXAM due on 03/11/2019 COLORECTAL CANCER SCREENING due on 06/03/2019 ADVANCE DIRECTIVE DISCUSSION Never done DEPRESSION SCREENING due on 02/26/2022 Message Sent to Practice: No Navigation Signature: Samia Hollingsworth Population Health Navigator March 16, 2022 2:38 PM documented in this encounter [facility] 09-30-2021 History of Past i llness Narrative Problem Noted Date Diagnosed Date Resolved Date Stage 3b chronic kidney disease 09/30/2021 10/15/2023 documented as of this encounter (statuses as of 11/26/2023) [facility] History of Past illness Narrative* Problem Noted Date Diagnosed Date Resolved Date Stage 3b chronic kidney disease 09/30/2021 10/15/2023 documented as of this encounter (statuses as of 12/02/2023) [facility] History of Past illness Narrative* Problem Noted Date Diagnosed Date Resolved Date Stage 3b chronic kidney disease 09/30/2021 10/15/2023 documented as of this encounter (statuses as of 01/14/2024) [facility] Encounter for screening mammogram for breast cancer [facility] Diagnosis Controlled type 2 diabetes mellitus without complication, with long-term current use of insulin (HCC)- Primary Essential hypertension, benign Stage 3b chronic kidney disease (HCC) Hyperlipidemia, unspecified hyperlipidemia type Congestive heart failure, unspecified HF chronicity, unspecified heart failure type (HCC) Bilateral leg edema Edema SOB (shortness of breath) Shortness of breath Anemia, unspecified type H/O: GI bleed Personal history of other diseases of digestive system [facility] Diagnosis Controlled type 2 diabetes mellitus without complication, with long-term current use of insulin (HCC)- Primary Essential hypertension, benign Stage 3b chronic kidney disease (HCC) Hyperlipidemia, unspecified hyperlipidemia type Congestive heart failure, unspecified HF chronicity, unspecified heart failure type (HCC) SOB (shortness of breath) Shortness of breath Bilateral leg edema Edema Anemia, unspecified type H/O: GI bleed Personal history of other diseases of digestive system [facility]* Diagnosis Controlled type 2 diabetes mellitus without complication, with long-term current use of insulin (HCC)- Primary documented in this encounter [facility] note* Diagnosis Controlled type 2 diabetes mellitus without complication, with long-term current use of insulin (HCC) Controlled type 2 diabetes mellitus without complication, without long-term current use of insulin (HCC) documented in this encounter [facility] note* Diagnosis Type 2 diabetes mellitus with stage 3b chronic kidney disease, without long-term current use of insulin (HCC)- Primary documented in this encounter [facility] note* Diagnosis Essential hypertension, benign Cerebral infarction, unspecified mechanism (HCC) documented in this encounter [facility] note* Diagnosis Encounter for screening mammogram for breast cancer documented in this encounter [facility] note* Diagnosis Type 2 diabetes mellitus with stage 3b chronic kidney disease, without long-term current use of insulin (HCC)- Primary Essential hypertension, benign Hyperlipidemia, unspecified hyperlipidemia type Chronic kidney disease, stage 4 (severe) (HCC) Congestive heart failure, unspecified HF chronicity, unspecified heart failure type (HCC) Bilateral leg edema Edema H/O: GI bleed Personal history of other diseases of digestive system Anemia, unspecified type Skin lesion Unspecified disorder of skin and subcutaneous tissue Morbid obesity with body mass index of 40.0-44.9 in adult (HCC) Morbid obesity [facility] Elevated TSH- Primary Nonspecific abnormal results of thyroid function study [facility] Diagnosis Bilateral leg edema Edema Essential hypertension, benign Type 2 diabetes mellitus with stage 3b chronic kidney disease, without long-term current use of insulin (HCC) Controlled type 2 diabetes mellitus without complication, with long-term current use of insulin (HCC) documented in this encounter [facility] note* Diagnosis Type 2 diabetes mellitus with stage 3b chronic kidney disease, without long-term current use of insulin (HCC) documented in this encounter [facility] note* Diagnosis Controlled type 2 diabetes mellitus without complication, with long-term current use of insulin (HCC) documented in this encounter [facility] note* Diagnosis Essential hypertension, benign documented in this encounter [facility] note* Diagnosis Hyperlipidemia, unspecified hyperlipidemia type- Primary Chronic kidney disease, stage 4 (severe) (HCC) Heart failure, unspecified HF chronicity, unspecified heart failure type (HCC) Morbid obesity with body mass index of 40.0-44.9 in adult (HCC) Morbid obesity Type 2 diabetes mellitus with stage 3b chronic kidney disease, without long-term current use of insulin (HCC) Essential hypertension, benign Anemia, unspecified type Bilateral leg edema Edema Cellulitis of skin Cellulitis and abscess of unspecified site Other depression documented in this encounter [facility] note* Diagnosis Diabetic ulcer of right midfoot associated with type 2 diabetes mellitus, unspecified ulcer stage (HCC)- Primary Morbid obesity with body mass index of 40.0-44.9 in adult (HCC) Morbid obesity Essential hypertension, benign Type 2 diabetes mellitus with chronic kidney disease, with long-term current use of insulin, unspecified CKD stage (HCC) documented in this encounter [facility] note* Diagnosis Type 2 diabetes mellitus with stage 3b chronic kidney disease, without long-term current use of insulin (HCC) Controlled type 2 diabetes mellitus without complication, with long-term current use of insulin (HCC) documented in this encounter [facility] for referral (narrative)* Diagnostic Procedure Only (Routine) - Pending Review Specialty Diagnoses / Procedures Referred By Contnadia t Referred To Contact [facility] Diagnoses Encounter for screening mammogram for breast cancer Procedures BUSTER SCREENING SCREENING MAMMOGRAPHY BI 2-VIEW BREAST INC Amado Diaz MD [address] [place] [address] [facility] [address] [place] [address] Referral ID Status Reason Start Date Expiration Date Visits Requested Visits Authorized [id number] Pending Review Auto-Generat ed Referral 03/04/2022 04/03/2023 1 1 [facility] Diagnostic Procedure Only (Routine) - Pending Review Specialty Diagnoses / Procedures Referred By Thuan jama Referred To Contact [facility] Diagnoses Encounter for screening mammogram for breast cancer Procedures BUSTER SCREENING SCREENING MAMMOGRAPHY BI 2-VIEW BREAST INC CAD Amado Lopes MD [address] [place] [address] [facility] [address] [place] [address] Referral ID Status Reason Start Date Expiration Date Visits Requested Visits Authorized [id number] Pending Review Auto-Generat ed Referral 02/24/2023 03/25/2024 1 1 T [facility] Reason for Referral Specialty Diagnoses / Procedures Referred By Thuan jama Referred To Contact Podiatry Diagnoses Diabetic ulcer of right midfoot associated with type 2 diabetes mellitus, unspecified ulcer stage (HCC) Procedures CONSULT TO PODIATRY OFFICE/OUTPATIENT [facility] 60 MINUTES Amado Lopes MD [address] [place] [address] Referral ID Status Reason Start Date Expiration Date Visits Requested Visits Authorized [id number] Authorized PCP Requested Referral 05/06/2024 05/06/2025 1 1 Summary Purpose Family History No Family History Records Found Advance Directives No Advanced Directives Records Found Additional Source Comments Source Comments (unrecognize d section and content) In the event this informatio n is protected by the Federal Confidentiality of Alcohol and Drug Abuse Patient Records regulations: The Federal rules restrict any use of the information to criminally investigate or prosecute any alcohol or drug abuse patient.[facility] the event this information is protected by the Federal Confidentiality of Alcohol and Drug Abuse Patient Records regulations: The Federal rules restrict any use of the information to criminally investigate or prosecute any alcohol or drug abuse patient.[facility] the event this information is protected by the Federal Confidentiality of Alcohol and Drug Abuse Patient Records regulations: The Federal rules restrict any use of the information to criminally investigate or prosecute any alcohol or drug abuse patient.[facility] Center[facility] the event this information is protected by the Federal Confidentiality of Alcohol and Drug Abuse Patient Records regulations: The Federal rules restrict any use of the information to criminally investigate or prosecute any alcohol or drug abuse patient.[facility] the event this information is protected by the Federal Confidentiality of Alcohol and Drug Abuse Patient Records regulations: The Federal rules restrict any use of the information to criminally investigate or prosecute any alcohol or drug abuse patient.[facility] the event this information is protected by the Federal Confidentiality of Alcohol and Drug Abuse Patient Records regulations: The Federal rules restrict any use of the information to criminally investigate or prosecute any alcohol or drug abuse patient.[facility] the event this information is protected by the Federal Confidentiality of Alcohol and Drug Abuse Patient Records regulations: The Federal rules restrict any use of the information to criminally investigate or prosecute any alcohol or drug abuse patient.[facility] the event this information is protected by the Federal Confidentiality of Alcohol and Drug Abuse Patient Records regulations: The Federal rules restrict any use of the information to criminally investigate or prosecute any alcohol or drug abuse patient.[facility] the event this information is protected by the Federal Confidentiality of Alcohol and Drug Abuse Patient Records regulations: The Federal rules restrict any use of the information to criminally investigate or prosecute any alcohol or drug abuse patient.[facility] Center[facility] the event this information is protected by the Federal Confidentiality of Alcohol and Drug Abuse Patient Records regulations: The Federal rules restrict any use of the information to criminally investigate or prosecute any alcohol or drug abuse patient.[facility] Center[facility] the event this information is protected by the Federal Confidentiality of Alcohol and Drug Abuse Patient Records regulations: The Federal rules restrict any use of the information to criminally investigate or prosecute any alcohol or drug abuse patient.[facility] Center[facility] the event this information is protected by the Federal Confidentiality of Alcohol and Drug Abuse Patient Records regulations: The Federal rules restrict any use of the information to criminally investigate or prosecute any alcohol or drug abuse patient.[facility] CenterIn the event this information is protected by the Federal Confidentiality of Alcohol and Drug Abuse Patient Records regulations: The Federal rules restrict any use of the information to criminally investigate or prosecute any alcohol or drug abuse patient.[facility] CenterIn the event this information is protected by the Federal Confidentiality of Alcohol and Drug Abuse Patient Records regulations: The Federal rules restrict any use of the information to criminally investigate or prosecute any alcohol or drug abuse patient.[facility] CenterIn the event this information is protected by the Federal Confidentiality of Alcohol and Drug Abuse Patient Records regulations: The Federal rules restrict any use of the information to criminally investigate or prosecute any alcohol or drug abuse patient.[facility] CenterIn the event this information is protected by the Federal Confidentiality of Alcohol and Drug Abuse Patient Records regulations: The Federal rules restrict any use of the information to criminally investigate or prosecute any alcohol or drug abuse patient.[facility] CenterIn the event this information is protected by the Federal Confidentiality of Alcohol and Drug Abuse Patient Records regulations: The Federal rules restrict any use of the information to criminally investigate or prosecute any alcohol or drug abuse patient.[facility] CenterIn the event this information is protected by the Federal Confidentiality of Alcohol and Drug Abuse Patient Records regulations: The Federal rules restrict any use of the information to criminally investigate or prosecute any alcohol or drug abuse patient.[facility] CenterIn the event this information is protected by the Federal Confidentiality of Alcohol and Drug Abuse Patient Records regulations: The Federal rules restrict any use of the information to criminally investigate or prosecute any alcohol or drug abuse patient.[facility] CenterIn the event this information is protected by the Federal Confidentiality of Alcohol and Drug Abuse Patient Records regulations: The Federal rules restrict any use of the information to criminally investigate or prosecute any alcohol or drug abuse patient.[facility] CenterIn the event this information is protected by the Federal Confidentiality of Alcohol and Drug Abuse Patient Records regulations: The Federal rules restrict any use of the information to criminally investigate or prosecute any alcohol or drug abuse patient.[facility] CenterIn the event this information is protected by the Federal Confidentiality of Alcohol and Drug Abuse Patient Records regulations: The Federal rules restrict any use of the information to criminally investigate or prosecute any alcohol or drug abuse patient.[facility] CenterIn the event this information is protected by the Federal Confidentiality of Alcohol and Drug Abuse Patient Records regulations: The Federal rules restrict any use of the information to criminally investigate or prosecute any alcohol or drug abuse patient.[facility] CenterIn the event this information is protected by the Federal Confidentiality of Alcohol and Drug Abuse Patient Records regulations: The Federal rules restrict any use of the information to criminally investigate or prosecute any alcohol or drug abuse patient.[facility] CenterIn the event this information is protected by the Federal Confidentiality of Alcohol and Drug Abuse Patient Records regulations: The Federal rules restrict any use of the information to criminally investigate or prosecute any alcohol or drug abuse patient.[facility] CenterIn the event this information is protected by the Federal Confidentiality of Alcohol and Drug Abuse Patient Records regulations: The Federal rules restrict any use of the information to criminally investigate or prosecute any alcohol or drug abuse patient.[facility] CenterIn the event this information is protected by the Federal Confidentiality of Alcohol and Drug Abuse Patient Records regulations: The Federal rules restrict any use of the information to criminally investigate or prosecute any alcohol or drug abuse patient.[facility] CenterIn the event this information is protected by the Federal Confidentiality of Alcohol and Drug Abuse Patient Records regulations: The Federal rules restrict any use of the information to criminally investigate or prosecute any alcohol or drug abuse patient.[facility] CenterIn the event this information is protected by the Federal Confidentiality of Alcohol and Drug Abuse Patient Records regulations: The Federal rules restrict any use of the information to criminally investigate or prosecute any alcohol or drug abuse patient.[facility] CenterIn the event this information is protected by the Federal Confidentiality of Alcohol and Drug Abuse Patient Records regulations: The Federal rules restrict any use of the information to criminally investigate or prosecute any alcohol or drug abuse patient.[facility] CenterIn the event this information is protected by the Federal Confidentiality of Alcohol and Drug Abuse Patient Records regulations: The Federal rules restrict any use of the information to criminally investigate or prosecute any alcohol or drug abuse patient.[facility] Care Teams (unrecognized sec tion and content) Manager Books Relationship Specialty Start Date End Date Amado Lopes MD [address] [place] [address] PCP - General 04/25/09 Manager Books Relationship Specialty Start Date End Date Amado Lopes MD [address] [facility] [place] [address] PCP - General 04/25/09 Manager Books Relationship Specialty Start Date End Date Amado Lopes MD [address] [facility] [place] [address] PCP - General 04/25/09 Manager Books Relationship Specialty Start Date End Date Amado Lopes MD [address] [place] [address], [place] [address] PCP - General 04/25/09 Manager Books Relationship Specialty Start Date End Date Amado Lopes MD [address] [place] [address], [place] [address] PCP - General 04/25/09 Manager Books Relationship Specialty Start Date End Date Amado Lopes MD [address] [place] [address], [place] [address] PCP - General 04/25/09 Manager Books Relationship Specialty Start Date End Date Amado Lopes MD [facility] [place] [address] PCP - General 04/25/09 Manager Books Relationship Specialty Start Date End Date Amado Lopes MD [facility] [place] [address] PCP - General 04/25/09 Manager Books Relationship Specialty Start Date End Date Amado Lopes MD [address] [place] [address], [place] [address] PCP - General 04/25/09 Manager Books Relationship Specialty Start Date End Date Amado Lopes MD [address] [place] [address], [place] [address] PCP - General 04/25/09 Manager Books Relationship Specialty Start Date End Date Amado Lopes MD [address] [place] [address] PCP - General 04/25/09 Manager Books Relationship Specialty Start Date End Date Amado Lopes MD [address] [place] [address] PCP - General 04/25/09 Manager Books Relationship Specialty Start Date End Date Amado Lopes MD [address] [place] [address] PCP - General 04/25/09 Manager Books Relationship Specialty Start Date End Date Amado Lopes MD [address] [place] [address] PCP - General 04/25/09 Manager Books Relationship Specialty Start Date End Date Amado Lopes MD [address] [place] [address] PCP - General 04/25/09 Manager Books Relationship Specialty Start Date End Date Amado Lopes MD [address] [place] [address] PCP - General 04/25/09 Manager Books Relationship Specialty Start Date End Date Amado Lopes MD [address] [place] [address] PCP - General 04/25/09 Manager Books Relationship Specialty Start Date End Date Amado Lopes MD [address] [place] [address] PCP - General 04/25/09 Manager Books Relationship Specialty Start Date End Date Amado Lopes MD [address] [place], [place] [address] PCP - General 04/25/09 Manager Books Relationship Specialty Start Date End Date Amado Lopes MD [address] [place] [address] PCP - General 04/25/09 Manager Books Relationship Specialty Start Date End Date Amado Lopes MD [address] [place], [place] [address] PCP - General 04/25/09 Manager Books Relationship Specialty Start Date End Date Amado Lopes MD [address] [place] [address] PCP - General 04/25/09 Manager Books Relationship Specialty Start Date End Date Amado Lopes MD [address] [place], [place] [id number] PCP - General 04/25/09 Manager Books Relationship Specialty Start Date End Date Amado Lopes MD [address] [place] [address] PCP - General 04/25/09 Reason for Visit (unrecogniz ed section and content) Reason Onset Date Comments Population Health Navigation Outreach 03/16/2022 [place] Care Gap Reason Comments F/U 6 Month Reason Comments F/U 3 Month Reason Onset Date Comments Refill Request 07/14/2022 Reason Onset Date Comments Refill Request 07/15/2022 Reason Comments Medication Problem Reason Onset Date Comments Refill Request 12/14/2022 Reason Onset Date Comments Allied Health Visit 12/23/2022 Medication A dherence Outreach Reason Onset Date Comments Population Health Navigation Outreach 01/25/2023 [place] Care Gap Reason Comments Refill Request Reason Comments Results Reason Onset Date Comments Allied Health Visit 11/26/2023 Medication A dherence Outreach Reason Onset Date Comments Refill Request 12/02/2023 Reason Onset Date Comments Refill Request 01/13/2024 Reason Onset Date Comments Population Health Navigation Outreach 01/18/2024 Nadeen [place] [facility] work[facility] - [facility], Care gaps, HCC gap closure - [facility] Reason Onset Date Comments Refill Request 01/20/2024 Reason Onset Date Comments Refill Request 02/22/2024 Reason Onset Date Comments Population Health Navigation Outreach 02/28/2024 Nadeen [facility] 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 - AWV, Care gaps, HCC gap closure - [place] [facility] Reason Comments Appointment Reason Comments Physical Reason Onset Date Comments Population Health Navigation Outreach 05/03/2024 [place] Workbench - [facility] Reason Comments Wound Evaluation Bottom of right foot x 1 week Reason Comments Fax Request Reason Comments Opened In Error Reason Onset Date Comments Refill Request 06/06/2024 Reason Comments Fax Last OV Note INFORMATION SOURCE (unrecogn ized section and content) DATE CREATED AUTHOR 06/19/2024 [facility] FOR RECORDS PERTAINING TO PATIENTS WHO ARE OR HAVE BEEN ENROLLED IN A CHEMICAL DEPENDENCY/SUBSTANCEABUSE PROGRAM, SOME INFORMATION MAY BE OMITTED. This clinical summary was aggregated from multiple sources. Caution should be exercised in using it in the provision of clinical care. This summary normalizes information from multiple sources, and as a consequence, information in this document may materially change the coding, format and clinical context of patient data. In addition, data may be omitted in some cases. CLINICAL DECISIONS SHOULD BE BASED ON THE PRIMARY CLINICAL RECORDS. [facility]. provides no warranty or guarantee of the accuracy or completeness of information in this document.
[2024-07-13 14:47] LABS: Anion Gap 7 (5-15); BUN 48 mg/dL (7-18); BUN/Creat Ratio 25.9 RATIO (10-20); Calcium,Total 9.3 mg/dL (8.5-10.1); Chloride 107 mmol/L (98-107); Creatinine, Serum 1.85 mg/dL (0.55-1.02); EST Glomerular Filtration Rate 28 mL/min (>60); Est Glom Filt Rate - Afr Amer 34 mL/min (>60); Glucose 40 mg/dL (74-106); Potassium 3.8 mmol/L (3.5-5.1); Sodium Level 138 mmol/L (136-145)
[2024-07-13 15:07] LABS: Bedside Glucose 62 mg/dL (74-106)
[2024-07-13] MEDS: Dextrose 10%-Water 250 ML 999 ML IV (15:12)
--- NOTE | 2024-07-13 15:12 | EKG12_ITS ---
Test Reason : PRE OP Blood Pressure : / mmHG Vent. Rate : 077 BPM Atrial Rate : 077 BPM P-R Int : 168 ms QRS Dur : 164 ms QT Int : 492 ms P-R-T Axes : 050 -28 105 degrees QTc Int : 556 ms Normal sinus rhythm Left bundle branch block Abnormal ECG When compared with ECG of 13-JUL-2024 16:53, MANUAL COMPARISON REQUIRED, DATA IS UNCONFIRMED Confirmed by Paul Cardona ([id number]), editor school photograph ASTON AQUINO ([id number]) on 07/17/2024 12:10:26 PM Referred By: Cortez Mantilla Confirmed By:Paul Cardona
--- NOTE | 2024-07-13 15:12 | PCM.HP.STD ---
HPI - General General Date of Admission: 07/13/24 Date of Service: 07/13/24 Chief Complaint: Bilateral diabetic feet ulcer, not responding to outpatient antibiotic HPI Romulo WALDROP, is a 74 F who was sent from business analytics specialist from wound center to ED for nonhealing bilateral feet ulcer. She has ongoing right lateral foot ulcer for about 2 months and left 1 for last 2 weeks. Patient follows business analytics specialist Dr. Erwin. No fever. Patient does not have sensation of her bilateral feet with history of diabetes therefore diabetic polyneuropathy Patient also found hypoglycemic in ED, glucose 33 increased to 40 after cookies and oral feed. Currently getting 25 mL of D50 Patient states he also has a history of heart failure and gets short of breath on mild exertion. Blood pressure elevated in ED, 180/71. Twelve-lead EKG ordered. Patient was ordered IV antibiotic vancomycin and Zosyn and further admitted [facility] Medical History Dyspnea Ischemic cardiomyopathy History of CVA (cerebrovascular accident) Atherosclerosis of coronary artery without angina pectoris Type 2 diabetes mellitus Secondary pulmonary arterial hypertension Chronic combined systolic and diastolic CHF (congestive heart failure) Essential hypertension Obesity Chronic kidney disease (CKD) GI bleed (01/2022) Anemia Diabetes mellitus type 2 in obese Hyperlipidemia Home Medications ?Medication ?Instructions ?Recorded ?Last Taken ?Type atorvastatin 40 mg tablet 40 mg PO QHS CHOLESTEROL 02/22/22 Unknown History valsartan 160 mg tablet 160 mg PO DAILY BLOOD PRESSURE 02/22/22 Unknown History insulin lispro 100 unit/mL See Protocol subcut ACHS #0 mL 02/26/22 Unknown Rx subcutaneous pen (Humalog KwikPen (U-100) Insulin) aspirin 81 mg tablet,delayed 81 mg PO DAILY HEART HEALTH 06/03/22 Unknown History release (Adult Aspirin Regimen) carvedilol 25 mg tablet 25 mg PO BID HEART #180 tabs 07/12/24 Unknown Rx dapagliflozin propanediol 10 mg 10 mg PO DAILY DIABETES #90 tabs 07/12/24 Unknown Rx tablet (Farxiga) furosemide 40 mg tablet 80 mg PO DAILY EDEMA 07/12/24 Unknown History insulin detemir U-100 100 unit/mL 60 unit subcut BREAKFAST 07/12/24 Unknown History (3 mL) subcutaneous pen (Levemir FlexTouch U-100 Insulin) ciprofloxacin HCl 500 mg tablet 500 mg PO BID ANTIBIOTIC 07/13/24 Unknown History doxycycline hyclate 100 mg tablet 100 mg PO BID ANTIBIOTIC 07/13/24 Unknown History metolazone 5 mg tablet 5 mg PO DAILY 07/13/24 Unknown History Allergy/AdvReac Type Severity Reaction Status Date / Time No Known Allergies Allergy Verified 07/13/24 12:39 Family History Father Diabetes Heart disease CAD (coronary artery disease) Mother Heart disease Surgical History History of coronary artery stent placement (09/2013) H/O vein stripping Status post angioplasty with stent Social History household members: family Smoking Status: Former smoker how long ago did patient quit smokin years ago alcohol intake: never substance use type: does not use caffeine: Yes ROS ROS Narrative Constitutional: Reports fatigue and weakness. No fever. HEENT: Reports systems reviewed and no addt'l complaints, except as documented Respiratory/Chest: Chronic mild wheezing. CVS: Bilateral leg swelling, on furosemide. History of CHF, chest congestion. Dyspnea on exertion Gastrointestinal: Denies coffee ground emesis, hematemesis or vomiting Genitourinary: Denies burning urination or new urinary tract symptoms Musculoskeletal: Denies acute joint pain or limited range of motion. No acute injury Neurologic: Denies seizure-like symptoms. skin: Bilateral feet ulcer Endocrinology: Reports systems reviewed and no addt'l complaints, except as documented Hematologic/Lymphatic: Reports systems reviewed and no addt'l complaints, except as documented Rest 14 ROS are negative except as mentioned in HPI Vital Signs Vital Signs Vital Signs: 07/13/24 12:37 07/13/24 13:58 07/13/24 14:35 Temperature 98.2 F Temperature Source Oral Pulse Rate 86 79 Respiratory Rate 16 30 H Respiratory Effort Normal Non-Labored Respiratory Pattern Normal Blood Pressure 135/64 H 184/71 H Blood Pressure Mean 87 108 Pulse Ox 97 100 Oxygen Delivery Method Room Air Room Air Physical Exam Narrative General: Alert, Oriented x3, Cooperative HEENT: Atraumatic, PERRLA, EOMI, Normocephalic Oral: Oral mucosa dry no Gingival or Mucosal Lesions/ Ulcerations Neck: Supple, No JVD, Negative Carotid Bruits Chest wall/Lungs: Air entry diminished in bilateral lung bases. Bilateral chronic wheezing Cardiovascular: Sinus rhythm, Normal S1, Normal S2, No M/G/R Abdomen: Bowel Sounds Present, Soft, Non Tender, Non-Distended : No dysuria. No renal angle tenderness. No suprapubic tenderness. Extremities: Bilateral 2+ pitting edema, Capillary Refill Less than 3 Seconds Skin: Right foot, lateral margin, plantar ulcer clinically bone deep. Left foot lateral margin covered with black necrotic patch. Musculoskeletal: No Tenderness to Palpation of Joints or Extremities Neurological: Cranial nerves II-XII grossly intact, DTR 2+/4. No fine touch or plantar aspect of both feet. Position sense of bilateral great toe intact Psych/Mental Status: Flat affect Results Lab / Micro Data 07/13/24 13:45 07/13/24 13:45 Labs: Laboratory Results - last 24 hr 07/13/24 12:42: POC Glucose 33 L* 07/13/24 13:40: POC Glucose 49 L 07/13/24 13:45: WBC 10.8, RBC 3.82 L, Hgb 9.3 L, Hct 31.3 L, MCV 81.9, MCH 24.3 L, MCHC 29.7 L, RDW Std Deviation 44.3 H, RDW Coeff of Bulmaro 14.8 H, Plt Count 332, MPV 10.1, Immature Gran % (Auto) 0.500, Neut % (Auto) 78.9 H, Lymph % (Auto) 8.9 L, [place] % (Auto) 9.7, Eos % (Auto) 1.4, Baso % (Auto) 0.6, Absolute Neuts (auto) 8.5 H, Absolute Lymphs (auto) 0.96, Nucleated RBC % 0, ESR 67 H, Sodium 138, Potassium 3.8, Chloride 107, Carbon Dioxide 24.0, Anion Gap 7, BUN 48 H, Creatinine 1.85 H, Est GFR (MDRD) Af Amer 34 L, Est GFR (MDRD) Non-Af 28 L, BUN/Creatinine Ratio 25.9 H, Glucose 40 L*, Calcium 9.3, C-React Prot Ext Range 97.30 H 07/13/24 14:49: POC Glucose 62 L Imaging Radiology Impression Foot X-Ray 07/13/24 13:31 IMPRESSION: 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 Plantar and posterior calcaneal spurs. Soft tissue swelling around the ankle and along the dorsum of the foot. Electronically Signed: Dustin Rowley MD at 14:34 EDT , Foot X-Ray 07/13/24 13:45 IMPRESSION: Mild degenerative arthrosis of the talonavicular, calcaneocuboid, and subtalar joints. Plantar and posterior calcaneal spurs. Soft tissue swelling around the ankle and along the dorsum of the foot. Electronically Signed: Dustin Rowley MD at 14:42 EDT , Assessment & Plan Assessment/Plan (1) Type 2 diabetes mellitus with foot ulcer: PLAN: Plan This 74-year-old female is being admitted for management of bilateral diabetic feet ulcer. 1. Bilateral diabetic feet complicated ulcer, clinically right foot likely osteomyelitis left foot covered with necrotic necrotic: Patient is being admitted on [facility] floor. Folding Rules Printing Machine Operator is consulted. Bilateral feet x-ray reviewed. Right foot shows soft tissue swelling around ankle and along dorsum of feet with mild degenerative arthrosis of talonavicular and navicular cuneiform joints. Left foot findings were similar. Patient will need OR for operative culture and debridement. Empirically started on IV vancomycin and Zosyn. ESR and CRP are elevated 2. Bilateral leg/feet atherosclerotic PAD: Patient had lower extremity arterial study in April 2024 reported biphasic Doppler waveform at ankle level bilaterally. Resting RANDALL minimally diminished bilaterally. Patient on baby aspirin and discontinued 3. Diabetes mellitus type 2 complicated with polyneuropathy and hypoglycemia:: Glucose was low in BMP. 25 mL of D50 being given in ED. Accu-Chek before meals and at bedtime with Humalog sliding scale coverage and hypoglycemia protocol. Hold oral hypoglycemic agents 4. Chronic systolic and diastolic combined heart failure, CAD status post LORI in LAD and OM1 in 2014: Last echo in February 2024 shows EF 35% with stage I diastolic dysfunction. Moderately severe segmental systolic dysfunction. Continue carvedilol 12.5 mg twice daily and. Hold Farxiga. Continue furosemide from tomorrow a.m. 5. Anemia of chronic disease: H&H 9.3/31%. Platelet count 332,000. MCV 82%. H&H on baseline. 6. CKD stage IV: Patient BUNs/creatinine 48/1.85. Her baseline fluctuates from 1.7-2.37 depending upon diuretic use and fluid status. 7. Morbid obesity, BMI 44.9 kg/m?. It was BMI 47.0 in 2019 8. DVT prophylaxis? enoxaparin 30 mg subcu daily. Patient high risk for DVT/thromboembolism but also high risk for bleeding. Discontinue if platelet count drops less than 50,000 or hemoglobin less than 8 g% Living will/advanced directive/end of life care: Patient does not have living will or advanced directive. She does not have daycare power of real estate associate attorney for health but her son present in the ED is next to kin. After discussion of benefits/risks procedures involved with full code, DNR CC arrest and DNR CC, the patient opted for full code. Patient does want artificial life support including intubation, tube feed, ventilator and/chest compression, central venous catheter, vasopressor and DC shock if needed Total time spent in [id number] encounter in discussion of advanced directive 17 minutes. Laboratory Results 07/13/24 12:42: POC Glucose 33 L* 07/13/24 13:40: POC Glucose 49 L 07/13/24 13:45: WBC 10.8, RBC 3.82 L, Hgb 9.3 L, Hct 31.3 L, MCV 81.9, MCH 24.3 L, MCHC 29.7 L, RDW Std Deviation 44.3 H, RDW Coeff of Bulmaro 14.8 H, Plt Count 332, MPV 10.1, Immature Gran % (Auto) 0.500, Neut % (Auto) 78.9 H, Lymph % (Auto) 8.9 L, [place] % (Auto) 9.7, Eos % (Auto) 1.4, Baso % (Auto) 0.6, Absolute Neuts (auto) 8.5 H, Absolute Lymphs (auto) 0.96, Nucleated RBC % 0, ESR 67 H, Sodium 138, Potassium 3.8, Chloride 107, Carbon Dioxide 24.0, Anion Gap 7, BUN 48 H, Creatinine 1.85 H, Est GFR (MDRD) Af Amer 34 L, Est GFR (MDRD) Non-Af 28 L, BUN/Creatinine Ratio 25.9 H, Glucose 40 L*, Calcium 9.3, C-React Prot Ext Range 97.30 H 07/13/24 14:49: POC Glucose 62 L Clinical Impression(s) from Imaging Studies Foot X-Ray 07/13/24 13:31 IMPRESSION: 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 Plantar and posterior calcaneal spurs. Soft tissue swelling around the ankle and along the dorsum of the foot. Foot X-Ray 07/13/24 13:45 IMPRESSION: Mild degenerative arthrosis of the talonavicular, calcaneocuboid, and subtalar joints. Plantar and posterior calcaneal spurs. Soft tissue swelling around the ankle and along the dorsum of the foot. 2D echo in February 2024 Interpretation Summary Normal LV size. Stage 1 diastolic dysfunction. Mild focal aortic valve calcification. The left ventricular ejection fraction is 35 %. Moderately severe segmental systolic dysfunction (see wall motion). Charges/Coding Visit Charges Inpatient E&M: 79035 Init Hosp L3 Procedures Hospitalists Procedures: 18967 Advncd Care Plan 30 Min
[2024-07-13 16:12] LABS: Bedside Glucose 73 mg/dL (74-106)
[2024-07-13 16:55] LABS: Magnesium 2.3 mg/dL (1.6-2.6); Phosphorus 3.8 mg/dL (2.5-4.9)
--- OUTSIDE RECORDS SUMMARY | 2024-07-13 17:20 | XMS RPT_ITS | CCD ---
Author Organization [facility] Care Team Providers Care Marketing Copywriter Name Role Phone Amado Lopes MD Primary Care Provider [phone] AMADO LOPES Attending Unavailable AMADO LOPES Primary Care Unavailable AMADO LOPES Primary Care Unavailable AMADO LOPES Referring Unavailable AMADO LOPES Primary Care Unavailable AMADO LOPES Attending Unavailable AMADO LOPES Primary Care Unavailable AMADO LOPES Referring Unavailable Allergies Allergy Classification Reported Allergen(s) Allergy Type Date of Onset Reaction(s) Facility (3 sources) Angiotensin-conv erting enzyme inhibitor agent; Translations: [DIANA INHIBITORS] Propensity to adverse reactions 07-17-2005 [facility] Work Phone: (20 sources) Neomycin; Translations: [NEOMYCIN] Drug Allergy 07-17-2005 [facility] Work Phone: (20 sources) Angiotensin-conv erting enzyme inhibitor agent Propensity to adverse reactions 07-17-2005 [facility] Work Phone: Medications Current Medications Medication Drug [...] on above: Take 1 capsule by mo [facility] once daily. clopidogrel 75 mg [...] complication, with long-term current use of insulin ([facility]) Inject 70 Units subcutaneously daily with breakfast. [...] complication, with long-term current use of insulin ([facility]) Inject 70 Units subcutaneously daily with breakfast. 30 Each 5 07/13/2022 04/15/2023 Discontinued Start: 11-13-2021 inject 80 [IU] by dobbs bcutaneous injection once daily at breakfast insulin detemir U-100 (LEVEMIR) 100 unit/mL (3 mL) injection pen Indications: Controlled type 2 diabetes mellitus without complication, with long-term current use of insulin ([facility]) Inject 80 Units subcutaneously daily with breakfast. [...] complication, with long-term current use of insulin ([facility]) INJECT 25 UNITS SUBCUTANEOUSLY THREE TIMES DAILY WITH MEALS DIRECTED 30 Each 3 06/06/2024 Active Start: 01-12-2023 insulin lispro (HUMALOG KWIKPEN INSULIN) 100 unit/mL Indications: Type 2 diabetes mellitus with stage 3b chronic kidney disease, without long-term current use of insulin (HCC) , Controlled type 2 diabetes mellitus without complication, with long-term current use of insulin ([facility]) INJECT 25 UNITS SUBCUTANEOUSLY THREE TIMES DAILY [...] THREE TIMES DAILY WITH MEALS DIRECTED Insulin [place], Disposable, (RELION PEN NEEDLES) 32 x 5/32 ndle (20 sources) Start: 02-28-20 15 Insulin [place], Disposable, (RELION PEN NEEDLES) 32 x 5/32 [...] sources) Long-term current use of insulin; Translations: [prison (current) use of insulin] Onset: 10-15-2023 10-15-2023 [...] Range Facil itemily RENEENancie 06-16-2024 CNPN Telephone ([facility]) ROSA MYERS ([id number]) 1950 F Date Time Provider Department 06/16/24 AMADO LOPES [facility] During your visit today, we recorded the following information about you: Sanaz Lucas RN 06/16/2024 11:39 AM Signed Patricia [facility] called in and wanted Pts last OV note faxed over. She states the only diagnosis they have is foot ulcer, and she wanted more diagnoses to put down. Faxed last OV note to fax # [phone]. Allergies As of Date: 06/16/2024 Noted Allergy [...] capsule by mouth once daily. 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 (HCC) [Z79.4] 10/15/2023 Heart failure, unspecified (HCC) [I50.9] 04/15/2023 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*04/15/2023 Encounter Status:Closed by SANAZ LUCAS on 06/16/24 [facility] Lamont [facility]20[facility] ([id number]) 1950 F Date Time Provider Department 06/02/24 AMADO LOPES [facility] During your visit today, we recorded the following information about you: Aga Mckeon, RYNE 06/02/2024 2:35 PM Signed Julieth with [facility] calling and requesting most recent office visit for patient be faxed to them at [phone] for continuity of care for Home Health [...] capsule by mouth once daily. 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 prison current use of insulin (HCC) [Z79.4] 10/15/2023 Heart failure, unspecified (HCC) [I50.9] 04/15/2023 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*04/15/2023 Encounter Status:Closed by AGA MCKEON on 06/02/24 [facility] Manuelito 05-06-2024 CNOV Office Visit (FAMPWS ) ROSA MYERS ([id number]) 1950 F Date Time Provider Department 05/06/24 [...] CATARACT EXTRACTION HX; Right 02/24/2022: EGD W/O [facility] SPEC VARICIES INJ; N/A 1987: [...] 1 capsule by mouth once daily. Insulin [place], Disposable, (RELION PEN NEEDLES) 32 x 5/32 [...] done Shingrix (more content not included)... Normal [facility] CNPNon 04-18-2024 CNPN Telephone (FAMWS) ROSA MYERS ([id number]) 1950 F Date Time Provider Department 04/18/24 [facility] During your visit today, we recorded the [...] capsule by mouth once daily. 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 (HCC) [Z79.4] 10/15/2023 Heart failure, unspecified (HCC) [I50.9] 04/15/2023 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*04/15/2023 Encounter Status:Closed by RITA WHITTINGTON on 04/19/24 Normal [facility] CBC panel Auto (Bld)on 04-15 Erythrocyte distribution width (RBC) [Ratio] 15.9 % High 11.5-15.0 [facility] Comment on above: Order Comment: Speci men Type: BLOOD SPECIMENOrdering Facility: [facility] Address: [address] [place] [address] Performed By: #### 5 8410-2 ####[facility] LABCLIA [id number] [place] [address] [place] Hematocrit (Bld) [Volume fraction] 36.0 % Normal 36.0-46.0 [facility] Comment on above: Order Comment: Speci men Type: BLOOD SPECIMENOrdering Facility: [facility] Address: [address] [place] [address] Performed By: #### 5 8410-2 ####[facility] [id number] [place] [address] [place] Hemoglobin (Bld) [Mass/Vol] 10.9 g/dL Low 11.5-15.5 [facility] Comment on above: Order Comment: Speci men Type: BLOOD SPECIMENOrdering Facility: [facility] Address: [address] [place] [address] Performed By: #### 5 8410-2 ####[facility] [id number] [place] [address] [place] MCH (RBC) [Entitic mass] 26.8 pg Normal 26.0-34.0 [facility] Comment on above: Order Comment: Speci men Type: BLOOD SPECIMENOrdering Facility: [facility] Address: [address] [place] [address] Performed By: #### 5 8410-2 ####[facility] [id number] [place] [address] [place] MCHC (RBC) [Mass/Vol] 30.3 g/dL Low 30.5-36.0 [facility] Comment on above: Order Comment: Speci men Type: BLOOD SPECIMENOrdering Facility: [facility] Address: [address] [place] [address] Performed By: #### 5 8410-2 ####[facility] [id number] [place] [address] [place] MCV (RBC) [Entitic vol] 88.7 fL Normal 80.0-100.0 [facility] Comment on above: Order Comment: Speci men Type: BLOOD SPECIMENOrdering Facility: [facility] Address: [address] [place] [address] Performed By: #### 5 8410-2 ####[facility] LABIA [id number] [place] [address] [place] Nucleated RBC (Bld) [#/Vol] 10*3/uL Normal <0.01 [facility] Comment on above: Order Comment: Speci men Type: BLOOD SPECIMENOrdering Facility: [facility] Address: [address] [place] [address] Performed By: #### 5 8410-2 ####[facility] LABIA [id number] [place] [address] [place] Platelet mean volume (Bld) [Entitic vol] 11.9 fL Normal 9.0-12.7 [facility] Comment on above: Order Comment: Speci men Type: BLOOD SPECIMENOrdering Facility: [facility] Address: [address] [place] [address] Performed By: #### 5 8410-2 ####[facility] LABIA [id number] [place] [address] [place] Platelets (Bld) [#/Vol] 200 10*3/uL Normal 150-400 [facility] Comment on above: Order Comment: Speci men Type: BLOOD SPECIMENOrdering Facility: [facility] Address: [address] [place] [address] Performed By: #### 5 8410-2 ####[facility] LABIA [id number] [place] [address] [place] RBC (Bld) [#/Vol] 4.06 10*6/uL Normal 3.90-5.20 [facility] Comment on above: Order Comment: Speci men Type: BLOOD SPECIMENOrdering Facility: [facility] Address: [address] [place], [place] [address] Performed By: #### 5 8410-2 ####[facility] LABCLIA [id number] [place] [address] [place] WBC (Bld) [#/Vol] 8.10 10*3/uL Normal 3.70-11.00 [facility] Comment on above: Order Comment: Speci men Type: BLOOD SPECIMENOrdering Facility: [facility] Address: [address] [place] [address] Performed By: #### 5 8410-2 ####[facility] LABCLIA [id number] [place] [address] [place] Comprehensive metabolic 2000 panelon 04-15-2024 Albumin [Mass/Vol] 4.1 g/dL Normal 3.9-4.9 [facility] Comment on above: Order Comment: Speci men Type: BLOOD SPECIMENOrdering Facility: [facility] Address: [address] [place] [address] Performed By: #### 2 4331-1, 91188-4 ####[facility] LABCLIA [id number] [place] [address] [place] ALP [Catalytic activity/Vol] 102 U/L Normal 34-123 [facility] Comment on above: Order Comment: Speci men Type: BLOOD SPECIMENOrdering Facility: [facility] Address: [address] [place] [address] Performed By: #### 2 4331-1, 81749-7 ####[facility] LABCLIA [id number] [place] [id number] [place] ALT [Catalytic activity/Vol] 17 U/L Normal 7-38 [facility] Comment on above: Order Comment: Speci men Type: BLOOD SPECIMENOrdering Facility: [facility] Address: [address] [place] [address] Performed By: #### 2 4331-1, 98128-1 ####[facility] LABCLIA [id number] [place] [address] [place] Anion gap [Moles/Vol] 15 mmol/L Normal 8-15 [facility] Comment on above: Order Comment: Speci men Type: BLOOD SPECIMENOrdering Facility: [facility] Address: [address] [place] [address] Performed By: #### 2 4331-1, 39753-9 ####[facility] LABCLIA [id number] [place] [address] [place] AST [Catalytic activity/Vol] 17 U/L Normal 13-35 [facility] Comment on above: Order Comment: Speci men Type: BLOOD SPECIMENOrdering Facility: [facility] Address: [address] [place] [address] Performed By: #### 2 4331-1, 27435-4 ####[facility] LABCLIA [id number] [place] [address] [place] Bilirubin [Mass/Vol] 0.6 mg/dL Normal 0.2-1.3 [facility] Comment on above: Order Comment: Speci men Type: BLOOD SPECIMENOrdering Facility: [facility] Address: [address] [place] [address] Performed By: #### 2 4331-1, 76763-9 ####[facility] LABCLIA [id number] [place] [address] [place] Calcium [Mass/Vol] 9.0 mg/dL Normal 8.5-10.2 [facility] Comment on above: Order Comment: Speci men Type: BLOOD SPECIMENOrdering Facility: [facility] Address: [address] [place] [address] Performed By: #### 2 4331-1, 04069-6 ####[facility] LABCLIA [id number] [place] [id number] [place] Chloride [Moles/Vol] 104 mmol/L Normal 98-107 [facility] Comment on above: Order Comment: Speci men Type: BLOOD SPECIMENOrdering Facility: [facility] Address: [address] [place] [address] Performed By: #### 2 4331-1, 12782-5 ####[facility] LABIA [id number] [address] [address] [place] CO2 [Moles/Vol] 22 mmol/L Normal 22-30 [facility] Comment on above: Order Comment: Speci men Type: BLOOD SPECIMENOrdering Facility: [facility] Address: [address] [place] [address] Performed By: #### 2 4331-1, 37549-8 ####[facility] LABIA [id number] [place] [address] [place] Creatinine [Mass/Vol] 1.66 mg/dL High 0.58-0.96 [facility] Comment on above: Order Comment: Speci men Type: BLOOD SPECIMENOrdering Facility: [facility] Address: [address] [place] [address] Performed By: #### 2 4331-1, 52058-9 ####[facility] [id number] [place] [address] [place] Creatinine and Glomerular filtration rate.predicted panel (S/P/Bld) 32 mL/min/1.73m??? Low >=60 [facility] Comment on above: Order Comment: Speci men Type: BLOOD SPECIMENOrdering Facility: [facility] Address: [address] [place] [address] Result Comment: Kathrine mated Glomerular Filtration Rate [...] actual GFR. Performed By: #### 2 4331-1, 73413-0 ####[facility] LABCLIA [id number] [place] [address] [place] Glucose [Mass/Vol] 228 mg/dL High 74-99 [facility] Comment on above: Order Comment: Speci men Type: BLOOD SPECIMENOrdering Facility: [facility] Address: [address] [place] [address] Result Comment: The [place] [employer] (ADA) provides guidance for cutoff [...] Standards of Medical Care in Diabetes 2016, [place] [employer]. Diabetes Care. 2016.39(Suppl 1). Performed By: #### 2 4331-1, 24983-7 ####[facility] LABIA [id number] [place] [address] [place] Potassium [Moles/Vol] 4.8 mmol/L Normal 3.7-5.1 [facility] Comment on above: Order Comment: Speci men Type: BLOOD SPECIMENOrdering Facility: [facility] Address: [address] [place] [address] Performed By: #### 2 4331-1, 41049-5 ####[facility] LABIA [id number] [place] [address] [place] Protein [Mass/Vol] 7.2 g/dL Normal 6.3-8.0 [facility] Comment on above: Order Comment: Speci men Type: BLOOD SPECIMENOrdering Facility: [facility] Address: [address] [place] [address] Performed By: #### 2 4331-, 88109-9 ####[facility] LABIA [id number] [place] [id number] [place] Sodium [Moles/Vol] 141 mmol/L Normal 136-144 [facility] Comment on above: Order Comment: Speci men Type: BLOOD SPECIMENOrdering Facility: [facility] Address: [address] [place] [address] Performed By: #### 2 4331-1, 50947-8 ####[facility] LABIA [id number] [place] [address] [place] Urea nitrogen [Mass/Vol] 37 mg/dL High 7-21 [facility] Comment on above: Order Comment: Speci men Type: BLOOD SPECIMENOrdering Facility: [facility] Address: [address] [place] [address] Performed By: #### 2 4331-1, 82327-8 ####[facility] [id number] [place] [address] [place] HbA1c (Bld)on 04-15-2024 Average glucose Estimated from glycated hemoglobin (Bld) [Mass/Vol] 180 mg/dL Normal [facility] Comment on above: Order Comment: Speci men Type: BLOOD SPECIMENOrdering Facility: [facility] Address: [address] [place] [address] Result Comment: eAG: (Estimated average glucose) is a calculated value from HgbA1c and is desk representative of the average blood glucose level in the last 2-3 month period. Performed By: #### 5 5454-3 ####[facility] [id number] [place] [address] [place] HbA1c (Bld) [Mass fraction] 7.9 % High 4.3-5.6 [facility] Comment on above: Order Comment: Speci men Type: BLOOD SPECIMENOrdering Facility: [facility] Address: [address] [place] [address] Result Comment: Amer [place] Diabetes Association guidelines indicate that patients with HgbA1c in the range 5.7-6.4% are at increased risk for development of diabetes, and intervention by lifestyle modification may be beneficial. HgbA1c greater or equal to 6.5% is considered diagnostic of diabetes. Performed By: #### 5 5454-3 ####[facility] LABCLIA [id number] [place] [address] [place] Lipid 1996 panelon 4 Cholesterol [Mass/Vol] 131 mg/dL Normal <200 [facility] Comment on above: Order Comment: Maxim davies Type: BLOOD SPECIMENOrdering Facility: [facility] Address: [address] [place] [address] Result Comment: <200 mg/dL, Desirable 200-239 mg/dL, Borderline high >239 mg/dL, High Performed By: #### 2 4331-1, 40285-4 ####[facility] LABCLIA [id number] [address] STATES OF [facility] Cholesterol in HDL [Mass/Vol] 34 mg/dL Low >39 [facility] Comment on above: Order Comment: Maxim davies Type: BLOOD SPECIMENOrdering Facility: [facility] Address: [address] [place] [address] Result Comment: 40-5 9 mg/dL, Acceptable >59 mg/dL, High: Negative risk factor for coronary heart disease <40 mg/dL, Low: Positive risk factor for coronary heart disease Performed By: #### 2 4331-1, 29174-1 ####[facility] LABCLIA [id number] [address] [place] Cholesterol in LDL [Mass/Vol] 68 mg/dL Normal <100 [facility] Comment on above: Order Comment: Maxim davies Type: BLOOD SPECIMENOrdering Facility: [facility] Address: [address] [place] [address] Result Comment: <100 mg/dL, Optimal 100-129 mg/dL, Near optimal/above optimal 130-159 mg/dL, Borderline high 160-189 mg/dL, High >189 mg/dL, Very high Secondary prevention optimal LDL Cholesterol levels are recommended to be < 70 mg/dL Performed By: #### 2 4331-1, 04810-4 ####[facility] LABIA [id number] [address] [address] [place] Cholesterol in LDL/Cholesterol in HDL [Mass ratio] 2.00 {ratio} Normal <2.54 [facility] Comment on above: Order Comment: Trevori men Type: BLOOD SPECIMENOrdering Facility: [facility] Address: [address] [place] [address] Result Comment: Refe rence: 1. National Cholesterol Education Program ATP III Guideline At-A-Glance Quick Desk Reference: National Heart, Lung, and Blood [place]. National Institutes of Health. 2001: NIH Publication No. 01-3305. 2. An International Atherosclerosis Society position paper: global recommendations for the management of dyslipidemia: executive summary, Atherosclerosis. 2014: 232(2):410-413. Performed By: #### 2 4331-, 02614-3 ####[facility] LABIA [id number] [place] [address] [place] Cholesterol in VLDL [Mass/Vol] 29 mg/dL Normal <30 [facility] Comment on above: Order Comment: Maxim davies Type: BLOOD SPECIMENOrdering Facility: [facility] Address: [address] [place] [address] Performed By: #### 2 4331-, 40049-6 ####[facility] LABIA [id number] [address] [address] [place] Cholesterol non HDL [Mass/Vol] 97 mg/dL Normal <130 [facility] Comment on above: Order Comment: Maxim men Type: BLOOD SPECIMENOrdering Facility: [facility] Address: [address] [place] [address] Result Comment: <130 mg/dL, Optimal 130-159 mg/dL, Near optimal/above optimal 160-189 mg/dL, Borderline high 190-219 mg/dL, High >219 mg/dL, Very high Secondary prevention optimal non HDL Cholesterol levels are recommended to be <100 mg/dL Performed By: #### 2 4331-1, 97228-2 ####[facility] LABCLIA [id number] [place] [address] [place] Cholesterol.total/C holesterol in HDL [Mass ratio] 3.85 {ratio} Normal <5.10 [facility] Comment on above: Order Comment: Speci men Type: BLOOD SPECIMENOrdering Facility: [facility] Address: [address] [place] [address] Performed By: #### 2 4331-1, 80872-9 ####[facility] LABCLIA [id number] [address] [place] FASTING TIME 14 hrs Normal [facility] Comment on above: Order Comment: Speci men Type: BLOOD SPECIMENOrdering Facility: [facility] Address: [address] [place] [address] Performed By: #### 2 4331-1, 92714-2 ####[facility] LABIA [id number] [place] [address] [place] Triglyceride [Mass/Vol] 146 mg/dL Normal <150 [facility] Comment on above: Order Comment: Speci men Type: BLOOD SPECIMENOrdering Facility: [facility] Address: [address] [place] [address] Result Comment: <150 mg/dL, Normal 150-199 mg/dL, Borderline high 200-499 mg/dL, High >499 mg/dL, Very high Performed By: #### 2 4331-1, 44094-9 ####[facility] LABCLIA [id number] [place] [address] [place] CNOVon 04-10-2024 CNOV Office Visit (FAMPWS ) ROSA MYERS ([id number]) 1950 F Date Time Provider Department 04/10/24 [...] taking ASA 81 mg daily. Follows with [facility]; had recent echo showing no change [...] 1 capsule by mouth once daily. Insulin [place], Disposable, (RELION PEN NEEDLES) 32 x 5/32 ndle Use a (more content not included)... [facility] ROSA MYERS ([id number]) 1950 F Date Time Provider Department 04/04/24 MACIEL BUSBY [facility] During your visit today, we recorded the [...] capsule by mouth once daily. 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 ([facility]) [Z79.4] 10/15/2023 Heart failure, unspecified ([facility]) [I50.9] 04/15/2023 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*04/15/2023 Encounter Status:Closed by CHA TINAJERO on 04/04/24 Normal [facility] CBC W Auto Differential pane l (Bld)on 10-09-2023 Basophils (Bld) [#/Vol] 0.08 10*3/uL Normal <0.11 [facility] Comment on above: Order Comment: Speci men Type: BLOOD SPECIMENOrdering Facility: [facility] Address: [address] [place] [address] Performed By: #### 5 7021-8 ####[facility] [facility] LABCLIA [id number] [place] [address] [place] Basophils/100 WBC (Bld) 1.0 % Normal [facility] Comment on above: Order Comment: Speci men Type: BLOOD SPECIMENOrdering Facility: [facility] Address: [address] [place] [address] Performed By: #### 5 7021-8 ####[facility] LABCLIA [id number] [place] [address] [place] Differential cell count method Nom (Bld) Auto Normal [facility] Comment on above: Order Comment: Speci men Type: BLOOD SPECIMENOrdering Facility: [facility] Address: [address] [place] [address] Performed By: #### 5 7021-8 ####[facility] LABCLIA [id number] [place] [address] [place] Eosinophils (Bld) [#/Vol] 0.17 10*3/uL Normal <0.46 [facility] Comment on above: Order Comment: Speci men Type: BLOOD SPECIMENOrdering Facility: [facility] Address: [address] [place] [address] Performed By: #### 5 7021-8 ####[facility] LABCLIA [id number] [place] [address] [place] Eosinophils/100 WBC (Bld) 2.1 % Normal [facility] Comment on above: Order Comment: Speci men Type: BLOOD SPECIMENOrdering Facility: [facility] Address: [address] [place] [address] Performed By: #### 5 7021-8 ####[facility] LABCLIA [id number] [place] [address] [place] Erythrocyte distribution width (RBC) [Ratio] 15.1 % High 11.5-15.0 [facility] Comment on above: Order Comment: Speci men Type: BLOOD SPECIMENOrdering Facility: [facility] Address: [address] [place] [address] Performed By: #### 5 7021-8 ####[facility] LABCLIA [id number] [place] [address] [place] Hematocrit (Bld) [Volume fraction] 37.2 % Normal 36.0-46.0 [facility] Comment on above: Order Comment: Speci men Type: BLOOD SPECIMENOrdering Facility: [facility] Address: [address] [place] [address] Performed By: #### 5 7021-8 ####[facility] LABCLIA [id number] [place] [address] [place] Hemoglobin (Bld) [Mass/Vol] 11.1 g/dL Low 11.5-15.5 [facility] Comment on above: Order Comment: Speci men Type: BLOOD SPECIMENOrdering Facility: [facility] Address: [address] [place] [address] Performed By: #### 5 7021-8 ####[facility] LABCLIA [id number] [place] [address] [place] Immature granulocytes (Bld) [#/Vol] 10*3/uL Normal <0.10 [facility] Comment on above: Order Comment: Speci men Type: BLOOD SPECIMENOrdering Facility: [facility] Address: [address] [place] [address] Performed By: #### 5 7021-8 ####[facility] LABCLIA [id number] [place] [address] [place] Immature granulocytes/100 WBC (Bld) 0.3 % Normal [facility] Comment on above: Order Comment: Speci men Type: BLOOD SPECIMENOrdering Facility: [facility] Address: [address] [place] [address] Performed By: #### 5 7021-8 ####[facility] LABCLIA [id number] [place] [address] [place] Lymphocytes (Bld) [#/Vol] 1.52 10*3/uL Normal 1.00-4.00 [facility] Comment on above: Order Comment: Speci men Type: BLOOD SPECIMENOrdering Facility: [facility] Address: [address] [place] [address] Performed By: #### 5 7021-8 ####[facility] LABCLIA [id number] [place] [address] [place] Lymphocytes/100 WBC (Bld) 19.0 % Normal [facility] Comment on above: Order Comment: Speci men Type: BLOOD SPECIMENOrdering Facility: [facility] Address: [address] [place] [address] Performed By: #### 5 7021-8 ####[facility] LABCLIA [id number] [place] [address] [place] MCH (RBC) [Entitic mass] 26.0 pg Normal 26.0-34.0 [facility] Comment on above: Order Comment: Speci men Type: BLOOD SPECIMENOrdering Facility: [facility] Address: [address] [place] [address] Performed By: #### 5 7021-8 ####[facility] LABCLIA [id number] [place] [address] [place] MCHC (RBC) [Mass/Vol] 29.8 g/dL Low 30.5-36.0 [facility] Comment on above: Order Comment: Speci men Type: BLOOD SPECIMENOrdering Facility: [facility] Address: [address] [place] [address] Performed By: #### 5 7021-8 ####[facility] LABCLIA [id number] [place] [address] [place] MCV (RBC) [Entitic vol] 87.1 fL Normal 80.0-100.0 [facility] Comment on above: Order Comment: Speci men Type: BLOOD SPECIMENOrdering Facility: [facility] Address: [address] [place] [address] Performed By: #### 5 7021-8 ####[facility] LABCLIA [id number] [place] [address] [place] Monocytes (Bld) [#/Vol] 0.66 10*3/uL Normal <0.87 [facility] Comment on above: Order Comment: Speci men Type: BLOOD SPECIMENOrdering Facility: [facility] Address: [address] [place] [address] Performed By: #### 5 7021-8 ####[facility] LABCLIA [id number] [place] [address] [place] Monocytes/100 WBC (Bld) 8.3 % Normal [facility] Comment on above: Order Comment: Speci men Type: BLOOD SPECIMENOrdering Facility: [facility] Address: [address] [place] [address] Performed By: #### 5 7021-8 ####[facility] LABCLIA [id number] [place] [address] [place] Neutrophils (Bld) [#/Vol] 5.53 10*3/uL Normal 1.45-7.50 [facility] Comment on above: Order Comment: Speci men Type: BLOOD SPECIMENOrdering Facility: [facility] Address: [address] [place] [address] Performed By: #### 5 7021-8 ####[facility] LABCLIA [id number] [place] [address] [place] Neutrophils/100 WBC (Bld) 69.3 % Normal [facility] Comment on above: Order Comment: Speci men Type: BLOOD SPECIMENOrdering Facility: [facility] Address: [address] [place] [address] Performed By: #### 5 7021-8 ####[facility] LABCLIA [id number] [place] [address] [place] Nucleated RBC (Bld) [#/Vol] 10*3/uL Normal <0.01 [facility] Comment on above: Order Comment: Speci men Type: BLOOD SPECIMENOrdering Facility: [facility] Address: [address] [place] [address] Performed By: #### 5 7021-8 ####[facility] LABCLIA [id number] [place] [address] [place] Nucleated RBC/100 WBC (Bld) [Ratio] 0.0 /100 WBC Normal [facility] Comment on above: Order Comment: Speci men Type: BLOOD SPECIMENOrdering Facility: [facility] Address: [address] [place] [address] Performed By: #### 5 7021-8 ####[facility] LABCLIA [id number] [place] [address] [place] Platelet mean volume (Bld) [Entitic vol] 11.3 fL Normal 9.0-12.7 [facility] Comment on above: Order Comment: Speci men Type: BLOOD SPECIMENOrdering Facility: [facility] Address: [address] [place] [address] Performed By: #### 5 7021-8 ####[facility] LABCLIA [id number] [place] [address] [place] Platelets (Bld) [#/Vol] 242 10*3/uL Normal 150-400 [facility] Comment on above: Order Comment: Speci men Type: BLOOD SPECIMENOrdering Facility: [facility] Address: [address] [place] [address] Performed By: #### 5 7021-8 ####[facility] LABCLIA [id number] [place] [address] [place] RBC (Bld) [#/Vol] 4.27 10*6/uL Normal 3.90-5.20 [facility] Comment on above: Order Comment: Speci men Type: BLOOD SPECIMENOrdering Facility: [facility] Address: [address] [place] [address] Performed By: #### 5 7021-8 ####[facility] LABCLIA [id number] [place] [address] [place] WBC (Bld) [#/Vol] 7.98 10*3/uL Normal 3.70-11.00 [facility] Comment on above: Order Comment: Speci men Type: BLOOD SPECIMENOrdering Facility: [facility] Address: [address] [place] [address] Performed By: #### 5 7021-8 ####[facility] LABIA [id number] [address] [address] [place] Comprehensive metabolic 2000 panelon 10-09-2023 Albumin [Mass/Vol] 4.1 g/dL Normal 3.9-4.9 [facility] Comment on above: Order Comment: Speci men Type: BLOOD SPECIMENOrdering Facility: [facility] Address: [address] [place] [address] Performed By: #### 2 4331-1, 3015-3, 97494-1 ####[facility] LABIA [id number] [place] [address] [place] ALP [Catalytic activity/Vol] 96 U/L Normal 34-123 [facility] Comment on above: Order Comment: Speci men Type: BLOOD SPECIMENOrdering Facility: [facility] Address: [address] [place] [address] Performed By: #### 2 4331-1, 3015-3, 93003-0 ####[facility] LABIA [id number] [place] [address] [place] ALT [Catalytic activity/Vol] 19 U/L Normal 7-38 [facility] Comment on above: Order Comment: Speci men Type: BLOOD SPECIMENOrdering Facility: [facility] Address: [address] [place] [address] Performed By: #### 2 4331-1, 3015-3, 12555-7 ####[facility] LABIA [id number] [place] [id number] [place] Anion gap [Moles/Vol] 15 mmol/L Normal 9-18 [facility] Comment on above: Order Comment: Speci men Type: BLOOD SPECIMENOrdering Facility: [facility] Address: [address] [place] [address] Performed By: #### 2 4331-1, 3015-3, ####[facility] LABCLIA [id number] [address] [address] [place] AST [Catalytic activity/Vol] 16 U/L Normal 13-35 [facility] Comment on above: Order Comment: Speci men Type: BLOOD SPECIMENOrdering Facility: [facility] Address: [address] [place] [id number] Performed By: #### 2 4331-1, 3, ####[facility] LABCLIA [id number] [address] [address] [place] Bilirubin [Mass/Vol] 0.5 mg/dL Normal 0.2-1.3 [facility] Comment on above: Order Comment: Speci men Type: BLOOD SPECIMENOrdering Facility: [facility] Address: [address] [place] [id number] Performed By: #### 2 4331-1, 3, ####[facility] LABCLIA [id number] [address] [address] [place] Calcium [Mass/Vol] 9.5 mg/dL Normal 8.5-10.2 [facility] Comment on above: Order Comment: Speci men Type: BLOOD SPECIMENOrdering Facility: [facility] Address: [address] [place] [address] Performed By: #### 2 4331-1, 3, ####[facility] LABIA [id number] [address] [address] [place] Chloride [Moles/Vol] 103 mmol/L Normal 97-105 [facility] Comment on above: Order Comment: Speci men Type: BLOOD SPECIMENOrdering Facility: [facility] Address: [address] [place] [address] Performed By: #### 2 4331-1, 3015-3, ####[facility] LABIA [id number] [place] [address] [place] CO2 [Moles/Vol] 21 mmol/L Low 22-30 [facility] Comment on above: Order Comment: Speci men Type: BLOOD SPECIMENOrdering Facility: [facility] Address: [address] [place] [address] Performed By: #### 2 4331-1, 3015-3, ####[facility] LABIA [id number] [place] [id number] [place] Creatinine [Mass/Vol] 1.93 mg/dL High 0.58-0.96 [facility] Comment on above: Order Comment: Speci men Type: BLOOD SPECIMENOrdering Facility: [facility] Address: [address] [place] [address] Performed By: #### 2 4331-1, 3015-3, ####[facility] [id number] [place] [address] [place] Creatinine and Glomerular filtration rate.predicted panel (S/P/Bld) 27 mL/min/1.73m??? Low >=60 [facility] Comment on above: Order Comment: Speci men Type: BLOOD SPECIMENOrdering Facility: [facility] Address: [address] [place] [address] Result Comment: Kathrine mated Glomerular Filtration Rate [...] 4331-1, 3015-3, ####[facility] LABIA [id number] [place] [id number] [place] Glucose [Mass/Vol] 250 mg/dL High 74-99 [facility] Comment on above: Order Comment: Speci men Type: BLOOD SPECIMENOrdering Facility: [facility] Address: [address] [place] [address] Result Comment: The [place] [employer] (ADA) provides guidance for cutoff [...] Standards of Medical Care in Diabetes 2016, [place] [employer]. Diabetes Care. 2016.39(Suppl 1). Performed By: #### 2 4331-1, 3015-3, ####[facility] LABCLIA [id number] [place] [address] [place] Potassium [Moles/Vol] 5.2 mmol/L High 3.7-5.1 [facility] Comment on above: Order Comment: Maxim davies Type: BLOOD SPECIMENOrdering Facility: [facility] Address: [address] [place] [address] Performed By: #### 2 4331-1, 3015-3, ####[facility] LABCLIA [id number] [place] [address] [place] Protein [Mass/Vol] 7.1 g/dL Normal 6.3-8.0 [facility] Comment on above: Order Comment: Maxim davies Type: BLOOD SPECIMENOrdering Facility: [facility] Address: [address] [place] [address] Performed By: #### 2 4331-1, 3015-3, 55500-8 ####[facility] LABCLIA [id number] [place] [id number] [place] Sodium [Moles/Vol] 139 mmol/L Normal 136-144 [facility] Comment on above: Order Comment: Maxim davies Type: BLOOD SPECIMENOrdering Facility: [facility] Address: [address] [place] [address] Performed By: #### 2 4331-1, 3016-3, 27957-3 ####[facility] LABCLIA [id number] [place] [address] [place] Urea nitrogen [Mass/Vol] 36 mg/dL High 7-21 [facility] Comment on above: Order Comment: Trevori men Type: BLOOD SPECIMENOrdering Facility: [facility] Address: [address] [place] [address] Performed By: #### 2 4331-1, 3016-3, 35687-5 ####[facility] LABIA [id number] [place] [address] [place] HbA1c (Bld)on 10-09-2023 Average glucose Estimated from glycated hemoglobin (Bld) [Mass/Vol] 151 mg/dL Normal [facility] Comment on above: Order Comment: Maxim davies Type: BLOOD SPECIMENOrdering Facility: [facility] Address: [address] [place] [address] Result Comment: eAG: (Estimated average glucose) is a calculated value from HgbA1c and is desk representative of the average blood glucose level in the last 2-3 month period. Performed By: #### 5 5454-3 ####[facility] LABIA [id number] [place] [address] [place] HbA1c (Bld) [Mass fraction] 6.9 % High 4.3-5.6 [facility] Comment on above: Order Comment: Maxim davies Type: BLOOD SPECIMENOrdering Facility: [facility] Address: [address] [place] [address] Result Comment: [place] Diabetes Association guidelines indicate that patients with HgbA1c in the range 5.7-6.4% are at increased risk for development of diabetes, and intervention by lifestyle modification may be beneficial. HgbA1c greater or equal to 6.5% is considered diagnostic of diabetes. Performed By: #### 5 5454-3 ####[facility] LABCLIA [id number] [place] [address] [place] Lipid 1996 panelon 4 Cholesterol [Mass/Vol] 128 mg/dL Normal <200 [facility] Comment on above: Order Comment: Speci men Type: BLOOD SPECIMENOrdering Facility: [facility] Address: [address] [place] [address] Result Comment: <200 mg/dL, Desirable 200-239 mg/dL, Borderline high >239 mg/dL, High Performed By: #### 2 4331-1, 301-3, 98984-0 ####[facility] LABCLIA [id number] [address] [place] Cholesterol in HDL [Mass/Vol] 33 mg/dL Low >39 [facility] Comment on above: Order Comment: Speci men Type: BLOOD SPECIMENOrdering Facility: [facility] Address: [address] [place] [address] Result Comment: 40-5 9 mg/dL, Acceptable >59 mg/dL, High: Negative risk factor for coronary heart disease <40 mg/dL, Low: Positive risk factor for coronary heart disease Performed By: #### 2 4331-1, 6-3, 40231-1 ####[facility] LABCLIA [id number] [address] [place] Cholesterol in LDL [Mass/Vol] 67 mg/dL Normal <100 [facility] Comment on above: Order Comment: Speci men Type: BLOOD SPECIMENOrdering Facility: [facility] Address: [address] [place] [address] Result Comment: <100 mg/dL, Optimal 100-129 mg/dL, Near optimal/above optimal 130-159 mg/dL, Borderline high 160-189 mg/dL, High >189 mg/dL, Very high Secondary prevention optimal LDL Cholesterol levels are recommended to be < 70 mg/dL Performed By: #### 2 4331-1, 3016-3, 07091-4 ####[facility] LABCLIA [id number] [place] [address] [place] Cholesterol in LDL/Cholesterol in HDL [Mass ratio] 2.03 {ratio} Normal <2.54 [facility] Comment on above: Order Comment: Speci men Type: BLOOD SPECIMENOrdering Facility: [facility] Address: [address] [place] [address] Result Comment: Refe melvince: 1. National Cholesterol Education Program ATP III Guideline At-A-Glance Quick Desk Reference: National Heart, Lung, and Blood [place]. National Institutes of Health. 2001: NIH Publication No. 01-3305. 2. An International Atherosclerosis Society position paper: global recommendations for the management of dyslipidemia: executive summary, Atherosclerosis. 2014: 232(2):410-413. Performed By: #### 2 4331-1, 3015-3, 61613-7 ####[facility] LABCLIA [id number] [place] [address] [place] Cholesterol in VLDL [Mass/Vol] 28 mg/dL Normal <30 [facility] Comment on above: Order Comment: Trevori men Type: BLOOD SPECIMENOrdering Facility: [facility] Address: [address] [place] [address] Performed By: #### 2 4331-1, 3015-3, 95892-3 ####[facility] LABCLIA [id number] [place] [address] [place] Cholesterol non HDL [Mass/Vol] 95 mg/dL Normal <130 [facility] Comment on above: Order Comment: Speci men Type: BLOOD SPECIMENOrdering Facility: [facility] Address: [address] [place] [address] Result Comment: <130 mg/dL, Optimal 130-159 mg/dL, Near optimal/above optimal 160-189 mg/dL, Borderline high 190-219 mg/dL, High >219 mg/dL, Very high Secondary prevention optimal non HDL Cholesterol levels are recommended to be <100 mg/dL Performed By: #### 2 4331-1, 3016-3, 83316-2 ####[facility] LABCLIA [id number] [place] [id number] [place] Cholesterol.total/C holesterol in HDL [Mass ratio] 3.88 {ratio} Normal <5.10 [facility] Comment on above: Order Comment: Speci men Type: BLOOD SPECIMENOrdering Facility: [facility] Address: [address] [place] [address] Performed By: #### 2 4331-1, 3016-3, 32593-1 ####[facility] LABIA [id number] [place] [address] [place] FASTING TIME 12.5 hrs Normal [facility] Comment on above: Order Comment: Speci men Type: BLOOD SPECIMENOrdering Facility: [facility] Address: [address] [place] [address] Performed By: #### 2 4331-1, 6-3, 87641-3 ####[facility] LABIA [id number] [place] [address] [place] Triglyceride [Mass/Vol] 142 mg/dL Normal <150 [facility] Comment on above: Order Comment: Speci men Type: BLOOD SPECIMENOrdering Facility: [facility] Address: [address] [place] [address] Result Comment: <150 mg/dL, Normal 150-199 mg/dL, Borderline high 200-499 mg/dL, High >499 mg/dL, Very high Performed By: #### 2 4331-1, 3016-3, 28303-1 ####[facility] LABIA [id number] [place] [address] [place] TSH SerPl-aCncon 10-09-2023 TSH Qn 4.020 m[IU]/L Normal 0.270-4.200 [facility] Comment on above: Order Comment: Speci men Type: BLOOD SPECIMENOrdering Facility: [facility] Address: [address] [place] [address] Performed By: #### 2 4331-1, 3016-3, 86722-7 ####[facility] LABCLIA [id number] [place]ET[place] [address] [place] 06-21-2023 CNPN Telephone (FAMPWS) ROSA MYERS ([id number]) 1950 F Date Time Provider Department 06/21/23 [facility] During your visit today, we recorded the [...] TSH [R79.89] Order(s):TSH BLD [SQTSH] Order #: [id number] FUTURE Prescriptions as of 06/21/2023 - insulin [...] capsule by mouth once daily. - Insulin [place], Disposable, (RELION PEN NEEDLES) 32 x 5/32 [...] Status:Closed by [facility] TINAJERO on 06/21/23 Normal [facility] Vital Signs Date Time Vital Sign Value Performing Clinician Ambar leon 05-06-2024 08:43-0400 Body weight 119 kg Amado Lopes MD Work Phone: [facility] 05-06-2024 08:43-0400 Diastolic blood pressure 64 mm[Hg] Amado Lopes MD Work Phone: [facility] 05-06-2024 08:43-0400 Heart rate 68 /min Amado Lopes MD Work Phone: [facility] 05-06-2024 08:43-0400 Respiratory rate 16 /min Amado Lopes MD Work Phone: [facility] 05-06-2024 08:43-0400 SaO2% (BldA) [Mass fraction] 99 % Amado Lopes MD Work Phone: [facility] 05-06-2024 08:43-0400 Systolic blood pressure 97 mm[Hg] Amado Lopes MD Work Phone: [facility] 04-10-2024 18:07-0400 Body weight 120.02 kg Amado Lopes MD Work Phone: [facility] 04-10-2024 18:07-0400 Diastolic blood pressure 80 mm[Hg] Amado Lopes MD Work Phone: [facility] 04-10-2024 18:07-0400 Heart rate 74 /min Amado Lopes MD Work Phone: [facility] 04-10-2024 18:07-0400 Respiratory rate 16 /min Amado Lopes MD Work Phone: [facility] 04-10-2024 18:07-0400 Systolic blood pressure 140 mm[Hg] Amado Lopes MD Work Phone: [facility] 04-15-2023 15:40-0400 Body weight 116.57 kg Amado Lopes MD Work Phone: [facility] 04-15-2023 15:40-0400 Diastolic blood pressure 70 mm[Hg] Amado Lopes MD Work Phone: [facility] 04-15-2023 15:40-0400 Heart rate 70 /min Amado Lopes MD Work Phone: [facility] 04-15-2023 15:40-0400 Respiratory rate 20 /min Amado Lopes MD Work Phone: [facility] 04-15-2023 15:40-0400 Systolic blood pressure 128 mm[Hg] Amado Lopes MD Work Phone: [facility] 07-13-2022 15:42-0400 Body weight 114.31 kg Amado Lopes MD Work Phone: [facility] 07-13-2022 15:42-0400 Diastolic blood pressure 80 mm[Hg] Amado Lopes MD Work Phone: [facility] 07-13-2022 15:42-0400 Heart rate 64 /min Amado Lopes MD Work Phone: [facility] 07-13-2022 15:42-0400 Respiratory rate 20 /min Amado Lopes MD Work Phone: [facility] 07-13-2022 15:42-0400 Systolic blood pressure 124 mm[Hg] Amado Lopes MD Work Phone: [facility] 04-07-2022 15:22-0400 Body weight 118.39 kg Amado Lopes MD Work Phone: [facility] 04-07-2022 15:22-0400 Diastolic blood pressure 68 mm[Hg] Amado Lopes MD Work Phone: [facility] 04-07-2022 15:22-0400 Heart rate 78 /min Amado Lopes MD Work Phone: [facility] 04-07-2022 15:22-0400 Respiratory rate 20 /min Amado Lopes MD Work Phone: [facility] 04-07-2022 15:22-0400 Systolic blood pressure 126 mm[Hg] Amado Lopes MD Work Phone: [facility] Encounters Encounter Date Encounter Type Care Provider Facility Start: 06-16-2024 End: 06-16-2024 Telephone encounter Amado Lopes MD Work Phone: [facility] Comment on above: Fax Last OV Note Start: 06-06-2024 End: 06-06-2024 Refill Amado Lopes MD Work Phone: [facility] Comment on above: Refill Request Start: 06-05-2024 End: 06-05-2024 Telephone encounter Amado Lopes MD Work Phone: Family [facility] Comment on above: Opened In Error Start: 06-02-2024 End: 06-02-2024 Telephone encounter Amado Lopes MD Work Phone: [facility] Comment on above: Fax Request Start: 05-06-2024 End: 05-06-2024 ambulatory AMADO LOPES Facility:[facility] Start: 05-06-2024 End: 05-06-2024 Patient encounter [...] (HCC) Start: 05-03-2024 ambulatory [facility]en [facility] [place] Start: 05-03-2024 Patient encounter procedure [facility] Comment on above: Population Health Na vigation Outreach (Nadeen [facility]benc - [place] [facility]) Start: 04-18-2024 Telephone encounter Amado auguste MD Work Phone: [facility] Comment on above: Results Start: 04-15-2024 End: 04-15-2024 ambulatory AMADO LOPES Facility:[facility] Start: 04-10-2024 End: 04-10-[address] [facility] Start: 04-10-2024 End: 04-10-2024 Patient encounter procedure Amado Lopes MD Work Phone: [facility] Comment on above: Hyperlipidemia, unsp ecified hyperlipidemia [...] Telephone encounter Maciel parker APRN.CNP Work Phone: [facility] Comment on above: Appointment Start: 02-28-2024 ambulatory Jessica Yen MA [facility] [place] Start: 02-28-2024 [facility] Comment on above: Population Health Na vigation Outreach ([facility]ade[facility]OST[facility] workbenc - [facility], Care gaps, HCC gap closure - [place] [facility]) Start: 02-22-2024 Refill Amado zayas MD Work Phone: [facility] [place] Comment on above: Refill Request Start: 01-20-2024 Refill Amado zayas MD Work Phone: Family [facility] [place] Comment on above: Refill Request Start: 01-18-2024 ambulatory Jessica Yen MA [facility] [place] Start: 01-18-2024 Patient encounter procedure Jessica Yen MA [facility] Comment on above: [facility] ([facility]en [facility] workbenc - [facility], Care gaps, HCC gap closure - [place] [facility]) Start: 01-13-2024 Refill Amado zayas MD Work Phone: [facility] [place] Comment on above: Refill Request Start: 12-02-2023 Refill Amado zayas MD Work Phone: [facility] Comment on above: Refill Request Start: 11-26-2023 ambulatory Amado zayas MD Work Phone: Pharm [facility] Comment on above: Allied Health Visit (Medication Adherence Outreach ) Start: 10-09-2023 End: 10-09-2023 ambulatory AMADO LOPES Facility:[facility] Start: 06-21-2023 Telephone encounter Maciel parker APRN.CNP Work Phone: [facility] Comment on above: Results Start: 06-14-2023 Refill Amado zayas MD Work Phone: [facility] [place] Comment on above: Refill Request Start: 04-15-2023 End: 04-15-2023 Patient encounter procedure Amado Lopes MD Work Phone: Family [facility] [place] Comment on above: 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, without long-term current use of insulin (HCC) (Primary Dx); Essential hypertension, benign; Hyperlipidemia, unspecified hyperlipidemia type; Chronic kidney disease, stage 4 (severe) ([facility]); Congestive heart failure, unspecified HF chronicity, unspecified heart failure type ([facility]); Bilateral leg edema; H/O: GI bleed; Anemia, unspecified type; Skin lesion; Morbid obesity with body mass index of 40.0-44.9 in adult (HCC) Start: 02-24-2023 ambulatory Amado zayas MD Work Phone: [facility] [place] Start: 01-25-2023 ambulatory Samia Hickman [employer] Comment on above: Population Health Na vigation Outreach ([place] Care Gap) Start: 01-18-2023 Telephone encounter Amado auguste MD Work Phone: [facility] [place] Comment on above: Medication Problem Start: 12-23-2022 ambulatory Amado zayas MD Work Phone: [facility] Comment on above: Allied Health Visit (Medication Adherence Outreach/) Start: 12-14-2022 Refill Amado zayas MD Work Phone: [facility] [place] Comment on above: Refill Request Start: 10-30-2022 Telephone encounter Amado auguste MD Work Phone: [facility] [place] Comment on above: Medication Problem Start: 07-15-2022 Refill Amado zayas MD Work Phone: Family [facility] [place] Comment on above: Refill Request Start: 07-14-2022 Refill Amado zayas MD Work Phone: Family [facility] [place] Comment on above: Refill Request Start: 07-13-2022 End: 07-13-2022 Patient encounter procedure Amado Lopes MD Work Phone: Family [facility] [place] Comment on above: Controlled type 2 di [...] encounter procedure Amado Lopes MD Work Phone: [facility] [place] Comment on above: Controlled type 2 di abetes mellitus without complication, with long-term current use of insulin (HCC) (Primary Dx); Essential hypertension, benign; Stage 3b chronic kidney disease (HCC); Hyperlipidemia, unspecified hyperlipidemia type; Congestive heart failure, unspecified HF chronicity, unspecified heart failure type (HCC); Bilateral leg edema; SOB (shortness of breath); Anemia, unspecified type; H/O: GI bleed Start: 03-16-2022 ambulatory Samia Mitchell C [employer] Comment on above: Population Health Na vigation Outreach ([place] Care Gap) Start: 03-04-2022 ambulatory Amado zayas MD Work Phone: [facility] [place] Procedures Date Procedure Procedure Detail Performing Clinician [...] Detail Author Start: 05-06-2025 Annual PCP Team Oncology Technician daniel Disease Visit Annual PCP Team Chronic Disease Visit [facility] Start: 05-06-2025 BP Controlled (<130/80) BP Controlle d (<130/80) [facility] Start: 04-15-2025 Complete blood count Hemoglobin/Chon tocrit [facility] Start: 04-15-2025 Creatinine measurement Serum Creatin ine [facility] Start: 04-15-2025 Hepatitis B surface antibody level LDL Cholesterol [facility] Start: 04-10-2025 Annual PCP Team Oncology Technician daniel Disease Visit Annual PCP Team Chronic Disease Visit [facility] Start: 04-10-2025 Anxiety Screening Anxiety Screening [facility] Start: 04-10-2025 Covid-19 Vaccine () Covid-19 Vaccine () [facility] Comment on above: Postponed from 05/28 (Declined at this time) Start: 04-10-2025 Depression Screening Depression Scre ening [facility] Start: 10-16-2024 Hemoglobin A1c measurement HbA1C [facility] Start: 10-09-2024 Complete blood count Hemoglobin/Chon tocrit [facility] Start: 10-09-2024 Creatinine measurement Serum Creatin ine [facility] Start: 10-09-2024 Hepatitis B surface antibody level LDL Cholesterol [facility] Start: 07-11-2024 End: 07-11-2024 Patient encounter procedure [facility] Comment on above: follow up Annual Wellness - fo llow up Start: 05-28-2024 Covid-19 Vaccine () Covid-19 Vaccine () [facility] Start: 05-28-2024 Influenza vaccination [facility] Start: 04-15-2024 3 comp foot exam completed DIABETIC FOOT EXAM [facility] Start: 04-15-2024 ANNUAL PCP TEAM MAGNETIC PROSPECTING SUPERVISOR DANIEL DISEASE VISIT ANNUAL PCP TEAM CHRONIC DISEASE VISIT [facility] Start: 04-15-2024 BP CONTROLLED (<130/80) BP CONTROLLE D (<130/80) [facility] Start: 04-15-2024 COLORECTAL CANCER SCREENING COLORECTAL CANCER SCREENING [facility] Comment on above: Postponed from 03/19 (Declined at this time) Start: 04-15-2024 COVID-19 VACCINE (#1) COVID-19 VACCI NE (#1) [facility] Comment on above: Postponed from 09/18 (Declined at this time) Start: 04-15-2024 Diabetic foot examination Diabetic Foot Exam [facility] Start: 04-15-2024 Mammography MAMMOGRAM [facility] Comment on above: Postponed from 08/10 (Declined at this time) Start: 04-15-2024 Pneumococcal Vaccine : 65+ (3 - PPSV23 or PCV20) Pneumococcal Vaccine: 65+ (3 - PPSV23 or PCV20) [facility] Comment on above: Postponed from 10/25 (Declined at this time) Start: 04-15-2024 Pneumococcal Vaccine : 65+ (3 of 3 - PPSV23 or PCV20) Pneumococcal Vaccine: 65+ (3 of 3 - PPSV23 or PCV20) [facility] Comment on above: Postponed from 10/25 (Declined at this time) Start: 04-15-2024 PNEUMOCOCCAL: 65+ (3 - PPSV23 or PCV20) PNEUMOCOCCAL: 65+ (3 - PPSV23 or PCV20) [facility] Comment on above: Postponed from 10/25 (Declined at this time) Start: 04-15-2024 Screening for malign ant neoplasm of colon Colorectal Cancer Screening [facility] Comment on above: Postponed from 03/19 (Declined at this time) Start: 04-15-2024 SHINGRIX VACCINE (1 of 2) SHINGRIX VACCINE (1 of 2) [facility] Comment on above: Postponed from 03/19 (Declined at this time) Start: 04-10-2024 End: 04-10-2024 Patient encounter procedure 04/10/2024 6:00 PM EDT Office Visit [facility] [place] [address], [place] [id number] Amado Lopes MD [address] [place], [place] [id number] Medicare Wellness [facility] [place] Comment on above: Medicare Wellness Start: 04-10-2024 End: 07-10-2024 CBC panel - Blood by Automated count COMPLETE BLOOD COUNT Lab Routine Essential hypertension, benign Anemia, unspecified type Expected: 04/10/2024 (Approximate), Expires: 07/10/2024 [facility] Comment on above: Expected: 04/10/2024 (Approximate), Expires: 07/10/2024 Start: 04-10-2024 End: 07-10-2024 Comprehensive metabolic 2000 panel - Serum or Plasma COMPREHENSIVE METABOLIC PANEL Lab Routine Type 2 diabetes mellitus with stage 3b chronic kidney disease, without long-term current use of insulin (HCC) Hyperlipidemia, unspecified hyperlipidemia type Expected: 04/10/2024 (Approximate), Expires: 07/10/2024 [facility] Work Phone: Comment on above: Expected: 04/10/2024 (Approximate), Expires: 07/10/2024 Start: 04-10-2024 End: 07-10-2024 Hemoglobin A1c in Blood HEMOGLOBIN A1C Lab Routine Type 2 diabetes mellitus with stage 3b chronic kidney disease, without long-term current use of insulin (HCC) Expected: 04/10/2024 (Approximate), Expires: 07/10/2024 [facility] Comment on above: Expected: 04/10/2024 (Approximate), Expires: 07/10/2024 Start: 04-10-2024 Hepatitis B surface antibody level LDL CHOLESTEROL [facility] Start: 04-10-2024 End: 07-10-2024 Lipid 1996 panel - Serum or Plasma LIPID PANEL BASIC Lab Routine Type 2 diabetes mellitus with stage 3b chronic kidney disease, without long-term current use of insulin (HCC) Hyperlipidemia, unspecified hyperlipidemia type Expected: 04/10/2024 (Approximate), Expires: 07/10/2024 [facility] Comment on above: Expected: 04/10/2024 (Approximate), Expires: 07/10/2024 Start: 04-10-2024 SERUM CREATININE SERUM CREATININE [facility] Start: 04-08-2024 Hemoglobin A1c measurement HbA1C [facility] Start: 01-13-2024 ANNUAL PCP TEAM MAGNETIC PROSPECTING SUPERVISOR DANIEL DISEASE VISIT ANNUAL PCP TEAM CHRONIC DISEASE VISIT [facility] Start: 01-13-2024 BP CONTROLLED (<130/80) BP CONTROLLE D (<130/80) [facility] Start: 01-02-2024 HEMOGLOBIN/HEMATOCRIT HEMOGLOBIN/HEM ATOCRIT [facility] Start: 01-02-2024 Hepatitis B screening Urine Al bumin:Creatinine Ratio [facility] Start: 01-02-2024 Hepatitis B surface antibody level LDL CHOLESTEROL [facility] Start: 01-02-2024 SERUM CREATININE SERUM CREATININE [facility] Start: 10-16-2023 End: 12-16-2023 CBC W Auto Differential panel - Blood CBC + DIFF Lab Routine H/O: GI bleed Anemia, unspecified type Expected: 10/16/2023 (Approximate), Expires: 12/16/2023 [facility] Work Phone: Comment on above: Expected: [...] hypertension, benign Expected: 10/16/2023 (Approximate), Expires: 12/16/2023 [facility] Work Phone: Comment on above: Expected: 10/16/2023 (Approximate), Expires: 12/16/2023 Start: 10-16-2023 End: 12-16-2023 Hemoglobin A1c in Blood HGB A1C Lab Routine Type 2 diabetes mellitus with stage 3b chronic kidney disease, without long-term current use of insulin (HCC) Expected: 10/16/2023 (Approximate), Expires: 12/16/2023 [facility] Work Phone: Comment on above: Expected: 10/16/2023 (Approximate), Expires: 12/16/2023 Start: 10-16-2023 End: 12-16-2023 Lipid 1996 panel - Serum or Plasma LIPID PANEL BASIC Lab Routine Hyperlipidemia, unspecified hyperlipidemia type Essential hypertension, benign Expected: 10/16/2023 (Approximate), Expires: 12/16/2023 [facility] Work Phone: Comment on above: Expected: 10/16/2023 (Approximate), Expires: 12/16/2023 Start: 10-16-2023 End: 12-16-2023 Thyrotropin [Units/volume] in Serum or Plasma TSH BLD Lab Routine Elevated TSH Expected: 10/16/2023 (Approximate), Expires: 12/16/2023 [facility] Work Phone: Comment on above: Expected: 10/16/2023 (Approximate), Expires: 12/16/2023 Start: 10-11-2023 Hemoglobin A1c/Hemoglobin.total in Blood HBA1C [facility] Start: 09-27-2023 Advance Directive Discussion Advance Directive Discussion [facility] Start: 09-27-2023 Behavioral Health Screening Behavioral Health Screening [facility] Start: 09-27-2023 Depression Assessment Depression Ass essment [facility] Start: 07-13-2023 ANNUAL PCP TEAM MAGNETIC PROSPECTING SUPERVISOR DANIEL DISEASE VISIT ANNUAL PCP TEAM CHRONIC DISEASE VISIT [facility] Start: 07-06-2023 HEMOGLOBIN/HEMATOCRIT HEMOGLOBIN/HEM ATOCRIT [facility] Start: 07-06-2023 Hepatitis B surface antibody level LDL CHOLESTEROL [facility] Start: 07-06-2023 SERUM CREATININE SERUM CREATININE [facility] Start: 05-28-2023 Covid-19 Vaccine () Covid-19 Vaccine () [facility] Start: 05-28-2023 [facility] Start: 04-07-2023 Adult depression screening assessment DEPRESSION SCREENING [facility] Start: 04-07-2023 ANNUAL PCP TEAM MAGNETIC PROSPECTING SUPERVISOR DANIEL DISEASE VISIT ANNUAL PCP TEAM CHRONIC DISEASE VISIT [facility] Start: 04-07-2023 BP CONTROLLED (<130/80) BP CONTROLLE D (<130/80) [facility] Start: 04-07-2023 COVID-19 VACCINE (#1) COVID-19 VACCI NE (#1) [facility] Comment on above: Postponed from 09/18 (Declined at this time) Start: 04-02-2023 Hemoglobin A1c/Hemoglobin.total in Blood HBA1C [facility] Start: 04-02-2023 HEMOGLOBIN/HEMATOCRIT HEMOGLOBIN/HEM ATOCRIT [facility] Start: 04-02-2023 Hepatitis B surface antibody level LDL CHOLESTEROL [facility] Start: 04-02-2023 SERUM CREATININE SERUM CREATININE [facility] Start: 03-26-2023 Influenza vaccination INFLUENZA (#1) [facility] Comment on above: Postponed from 05/28 (Declined at this time) Start: 01-11-2023 End: 03-13-2023 ALBUMIN/CREAT RATIO RND UR ALBUMIN/CREAT RATIO RND UR Lab Routine Controlled type 2 diabetes mellitus without complication, with long-term current use of insulin (HCC) Essential hypertension, benign Stage 3b chronic kidney disease (HCC) Expected: 01/11/2023 (Approximate), Expires: 03/13/2023 [facility] Work Phone: Comment on above: Expected: 01/11/2023 (Approximate), Expires: 03/13/2023 Start: 01-11-2023 End: 03-13-2023 CBC W Auto Differential panel - Blood CBC + DIFF Lab Routine Essential hypertension, benign Stage 3b chronic kidney disease (HCC) Expected: 01/11/2023 (Approximate), Expires: 03/13/2023 [facility] Work Phone: Comment on above: Expected: 01/11/2023 (Approximate), Expires: 03/13/2023 Start: 01-11-2023 End: 03-13-2023 Comprehensive metabolic 2000 panel - Serum or Plasma COMP METABOLIC PANEL Lab Routine Controlled type 2 diabetes mellitus without complication, with long-term current use of insulin (HCC) Essential hypertension, benign Hyperlipidemia, unspecified hyperlipidemia type Expected: 01/11/2023 (Approximate), Expires: 03/13/2023 [facility] Work Phone: Comment on above: Expected: 01/11/2023 (Approximate), Expires: 03/13/2023 Start: 01-11-2023 End: 03-13-2023 Hemoglobin A1c in Blood HGB A1C Lab Routine Controlled type 2 diabetes mellitus without complication, with long-term current use of insulin (HCC) Expected: 01/11/2023 (Approximate), Expires: 03/13/2023 [facility] Work Phone: Comment on above: Expected: 01/11/2023 (Approximate), Expires: 03/13/2023 Start: 01-11-2023 End: 03-13-2023 Lipid 1996 panel - Serum or Plasma LIPID PANEL BASIC Lab Routine Essential hypertension, benign Hyperlipidemia, unspecified hyperlipidemia type Expected: 01/11/2023 (Approximate), Expires: 03/13/2023 [facility] Work Phone: Comment on above: Expected: 01/11/2023 (Approximate), Expires: 03/13/2023 Start: 10-06-2022 Hemoglobin A1c/Hemoglobin.total in Blood HBA1C [facility] Start: 10-03-2022 Hemoglobin A1c/Hemoglobin.total in Blood HBA1C [facility] Start: 09-30-2022 ANNUAL PCP TEAM MAGNETIC PROSPECTING SUPERVISOR DANIEL DISEASE VISIT ANNUAL PCP TEAM CHRONIC DISEASE VISIT [facility] Start: 09-30-2022 BP CONTROLLED (<130/80) BP CONTROLLE D (<130/80) [facility] Start: 09-27-2022 ADVANCE DIRECTIVE DISCUSSION ADVANCE DIRECTIVE DISCUSSION [facility] Start: 09-27-2022 DEPRESSION ASSESSMENT DEPRESSION ASS ESSMENT [facility] Start: 09-22-2022 HEMOGLOBIN/HEMATOCRIT HEMOGLOBIN/HEM ATOCRIT [facility] Start: 09-22-2022 Hepatitis B surface antibody level LDL CHOLESTEROL [facility] Start: 09-22-2022 SERUM CREATININE SERUM CREATININE [facility] Start: 07-08-2022 End: 09-07-2022 CBC W Auto Differential panel - Blood CBC + DIFF Lab Routine Essential hypertension, benign Stage 3b chronic kidney disease (HCC) Anemia, unspecified type Expected: 07/08/2022, Expires: 09/07/2022 [facility] Work Phone: Comment on above: Expected: 07/08/2022 , Expires: 09/07/2022 Start: 07-08-2022 End: 09-07-2022 Comprehensive metabolic 2000 panel - Serum or Plasma COMP METABOLIC PANEL Lab Routine Controlled type 2 diabetes mellitus without complication, with long-term current use of insulin (HCC) Essential hypertension, benign Hyperlipidemia, unspecified hyperlipidemia type Stage 3b chronic kidney disease (HCC) Expected: 07/08/2022, Expires: 09/07/2022 [facility] Work Phone: Comment on above: Expected: 07/08/2022 , Expires: 09/07/2022 Start: 07-08-2022 End: 09-07-2022 Hemoglobin A1c in Blood HGB A1C Lab Routine Controlled type 2 diabetes mellitus without complication, with long-term current use of insulin (HCC) Expected: 07/08/2022, Expires: 09/07/2022 [facility] Work Phone: Comment on above: Expected: 07/08/2022 , Expires: 09/07/2022 Start: 07-08-2022 End: 09-07-2022 Lipid 1996 panel - Serum or Plasma LIPID PANEL BASIC Lab Routine Essential hypertension, benign Hyperlipidemia, unspecified hyperlipidemia type Expected: 07/08/2022, Expires: 09/07/2022 [facility] Work Phone: Comment on above: Expected: 07/08/2022 , Expires: 09/07/2022 Start: 05-29-2022 3 comp foot exam completed DIABETIC FOOT EXAM [facility] Start: 05-28-2022 Influenza vaccination C [facility] Start: 03-23-2022 Hemoglobin A1c/Hemoglobin.total in Blood HBA1C [facility] Start: 02-26-2022 Adult depression screening assessment DEPRESSION SCREENING [facility] Start: 09-27-2021 ADVANCE DIRECTIVE DISCUSSION ADVANCE DIRECTIVE DISCUSSION [facility] Start: 06-03-2019 COLORECTAL CANCER SCREENING COLORECTAL CANCER SCREENING [facility] Start: 06-03-2019 FECAL OCCULT BLOOD FECAL OCCULT BLOO D [facility] Start: 06-03-2019 Screening for malign ant neoplasm of colon Fecal Occult Blood [facility] Start: 03-11-2019 Glaucoma screening Dilated Retinal E xam [facility] Start: 03-11-2019 Hepatitis C antibody , confirmatory test DILATED RETINAL EXAM [facility] Start: 08-10-2017 Mammography MAMMOGRAM [facility] Start: 10-25-2015 Pneumococcal Vaccine : 65+ (3 of 3 - PPSV23 or PCV20) Pneumococcal Vaccine: 65+ (3 of 3 - PPSV23 or PCV20) [facility] Start: 10-25-2015 PNEUMOCOCCAL: 65+ (3 - PPSV23 if available, else PCV20) PNEUMOCOCCAL: 65+ (3 - PPSV23 if available, else PCV20) [facility] Start: 10-25-2015 PNEUMOCOCCAL: 65+ (3 - PPSV23 or PCV20) PNEUMOCOCCAL: 65+ (3 - PPSV23 or PCV20) [facility] Start: 2008 Hepatitis B Vaccine (1 of 3 - Risk 3-dose series) Hepatitis B Vaccine (1 of 3 - Risk 3-dose series) [facility] Start: 2008 RSV Vaccine (1 - 1-d ose 60+ series) RSV Vaccine (1 - 1-dose 60+ series) [facility] Start: 1998 SHINGRIX VACCINE (1 of 2) SHINGRIX VACCINE (1 of 2) [facility] Start: 1993 COLOGUARD (FIT-DNA) COLOGUARD (FIT-D NA) [facility] Start: 1993 Colonoscopy COLONOSCOPY [facility] Start: [address] COLONOGRAPHY [facility] Start: 1993 Screening for malign ant neoplasm of colon [facility] Start: 1993 SIGMOIDOSCOPY SIGMOIDOSCOPY [facility] Start: 1967 Urine microalbumin profile [facility] Start: 1966 BP CONTROLLED (<130/80) BP CONTROLLE D (<130/80) [facility] Start: 1953 COVID-19 VACCINE (#1) COVID-19 VACCI NE (#1) [facility] End: 03-25-2024 BUSTER SCREENING BUSTER SCREENING Radiology Routine Encounter for screening mammogram for breast cancer 1 Occurrences starting 02/24/2023 until 03/25/2024 [facility] Work Phone: Comment on above: 1 Occurrences starti ng 02/24/2023 until 03/25/2024 End: 04-03-2023 Screening mammography bi 2-view breast inc cad BUSTER SCREENING Radiology Routine Encounter for screening mammogram for breast cancer 1 Occurrences starting 03/04/2022 until 04/03/2023 [facility] Work Phone: Comment on above: 1 Occurrences starti ng 03/04/2022 until 04/03/2023 [facility] Immunizations Immunization Date Immunization Notes Care Provider Mirian coats 06-03-2018 influenza virus vacc ine, unspecified formulation Amado Lopes MD Work Phone: [facility] 10-25-2014 pneumococcal conjuga te vaccine, 13 valent Amado Lopes MD Work Phone: [facility] 07-08-2010 influenza virus vacc ine, unspecified formulation Amado Lopes MD Work Phone: [facility] 07-17-2005 influenza virus vacc ine, unspecified formulation Amado Lopes MD Work Phone: [facility] 07-17-2005 pneumococcal polysaccharide vaccine, 23 valent Amado Lopes MD Work Phone: [facility] 06-27-2003 pneumococcal vaccine , unspecified formulation Amado Lopes MD Work Phone: [facility] Payers Date Payer Category Payer Unknown [employer] BLUE CROS S AND BLUE SHIELD [employer] ACCESS [id number] 2019-Present [phone] [id number] [place] [address] O [id number] 2019 Unknown [id number] 2019 Medicare [id number] Social History Date Type Detail Facility Start: 07-13-2022 Tobacco smoking stat us [facility] Ex-smoker [facility] Start: 09-30-2021 End: 05-06-2024 Alcohol intake Current non-drinker of alcohol (finding) [facility] Start: 12-31-2009 End: 07-13-2022 Tobacco Comment Quit 1980[facility] [facility] Start: 1950 Sex Assigned At Not on file C [facility] Start: 02-22-2022 End: 04-07-2022 Exposure to SARS-CoV-2 (event) Not sure [facility] Work Phone: History of tobacco use Current smoker [facility] Start: 07-13-2022 Tobacco use and exposure Smokeless tobacco non-user [facility] Start: 04-15-2023 End: 04-10-2024 History of Social function [facility] Work Phone: Start: 04-15-2023 End: 04-10-2024 Tobacco use panel [facility] Work Phone: Adult Depression Screening Assessment 2 [facility] Work Phone: Medical Equipment Procedure Code Equipment Code Equipment Origin al Text Equipment Identifier Dates [id number], [id number], [id number], [id number] Start: 08-10-2016 End: 07-15-2022 Comment on above: [...] Facility 06-16-2024 Telephone encount er Note Patricia [facility] called in and wanted Pts last OV note faxed over. She states the only diagnosis they have is foot ulcer, and she wanted more diagnoses to put down. Faxed last OV note to fax # [phone]. [facility] 06-16-2024 Miscellaneous Notes Formattin g of this note might be different from the original. Patricia [facility] called in and wanted Pts last OV note faxed over. She states the only diagnosis they have is foot ulcer, and she wanted more diagnoses to put down. Faxed last OV note to fax # [phone]. documented in this encounter [facility] 06-06-2024 Telephone encount er Note The following approved medication requests have been transmitted electronically. Requested Prescriptions Pending Prescriptions Disp Refills insulin lispro (HUMALOG KWIKPEN INSULIN) 100 unit/mL 30 Each 3 Sig: INJECT 25 UNITS SUBCUTANEOUSLY THREE TIMES DAILY WITH MEALS DIRECTED Maciel Busby APRN.CNP [facility] 06-06-2024 Miscellaneous Notes Formattin g of this [...] TIMES DAILY WITH MEALS DIRECTED Pushpa Neff [facility] June 06, 2024 10:33 AM documented in this encounter [facility] 06-06-2024 Telephone encount er Note Prescription Refill [...] TIMES DAILY WITH MEALS DIRECTED Pushpa Neff [facility] June 06, 2024 10:33 AM [facility] 06-02-2024 Telephone encount er Note Julieth with [facility] calling and requesting most recent office visit for patient be faxed to them at [phone] for continuity of care for Home Health Nursing services. Faxed as requested. Aga Mckeon RN [facility] 06-02-2024 Miscellaneous Notes Formattin g of this note might be different from the original. Julieth with [facility] calling and requesting most recent office visit for patient be faxed to them at [phone] for continuity of care for Home Health Nursing services. Faxed as requested. Aga Mckeon RN documented in this encounter [facility] 05-06-2024 History of Presen t illness Narrative [...] CATARACT EXTRACTION HX; Right 02/24/2022: EGD W/O [facility] SPEC VARICIES INJ; N/A 1987: [...] 1 capsule by mouth once daily. Insulin [place], Disposable, (RELION PEN NEEDLES) 32 x 5/32 [...] type 2 diabetes mellitus, unspecified ulcer stage ([facility]) - ICD9: 250.80, 707.14, ICD10: E11.621, L97.419 (primary diagnosis) - New ulcer, with cellulitis - Start Augmentin, refer to Podiatry; family requests [facility], as is treated there. - AMOXICILLIN 875 MG-POTASSIUM CLAVULANATE 125 MG TABLET - CONSULT TO PODIATRY 2. Morbid obesity with body mass index of 40.0-44.9 in adult ([facility]) - ICD9: 278.01, V85.41, ICD10: E66.01, Z68.41 Stable - Behavioral intervention Follow up prn; will re-evaluate swelling after infection clears I agree with the Chief Complaint, ROS, and Past Histories independently gathered by the clinical family support worker and the remaining scribed note accurately describes [...] Mariza Graham MA\ documented in this encounter [facility] 05-06-2024 Note HNO ID: [id number] Author: AMADO LOPES MD Service: ? Author [...] 1 capsule by mouth once daily. Insulin [place], Disposable, (RELION PEN NEEDLES) 32 x 5/32 [...] Ratio due o (more content not included)... [facility] 05-03-2024 Note HNO ID: [id number] Author: JESSICA YEN MA Service: ? Author Type: Die Finisher Type: Progress Notes Filed: 05/03/2024 09:11 Note Text: POPULATION HEALTH NAVIGATION OUTREACH Action/FYI Patient is on [facility] CURRENT ROSTER Workbench list for below and [...] Controlling Blood Pressure Upcoming OV converted per [place] protocol to AWV. Updated notes to address [...] Yen MA May 03, 2024 9:09 AM [facility] 05-03-2024 History of Presen t illness Narrative POPULATION HEALTH NAVIGATION OUTREACH Action/FYI Patient is on [facility] CURRENT ROSTER Workbench list for below and [...] Controlling Blood Pressure Upcoming OV converted per [place] protocol to AWV. Updated notes to address [...] 2024 9:09 AM documented in this encounter [facility] 05-03-2024 Note Patient Outreach (RITU TNAV) ROSA MYERS ([id number]) 1950 F Date Time Provider Department 05/03/24 JESSICA YEN During your visit today, we recorded the following information about you: Jessica Yen MA 05/03/2024 9:11 AM Signed POPULATION HEALTH NAVIGATION OUTREACH Action/FYI [facility] and needs appointment to [...] Controlling Blood Pressure Upcoming OV converted per [place] protocol to AWV. Updated notes to address [...] Population Health Navigation Outreach [3910] Cmt: [facility]en [facility] Prescriptions as of 05/03/2024 [...] capsule by mouth once daily. 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 (HCC) [Z79.4] 10/15/2023 Heart failure, unspecified (HCC) [I50.9] 04/15/2023 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*04/15/2023 Encounter Status:Closed by JESSICA YEN on 05/03/24 [facility] 04-19-2024 Telephone encount er Note Patient returned call and went over results, notes from Dr Lopes with understanding. Reminder of appt date and time in 3 months. [facility] 04-19-2024 Miscellaneous Notes Formattin g of this [...] Amado Lopes MD documented in this encounter [facility] 04-18-2024 Telephone encount er Note Tried to reach pt at her number and pt son at his number but both lines just ring. Will try to call again later. Mariza Graham MA [facility] 04-18-2024 Telephone encount er Note Please notify patient that her lab results are stable; stay on the same medications and follow up as planned in 3 months. Amado Lopes MD [facility] 04-10-2024 History of Presen t illness Narrative [...] taking ASA 81 mg daily. Follows with [place] [facility]; had recent echo showing no change [...] 1 capsule by mouth once daily. Insulin [place], Disposable, (RELION PEN NEEDLES) 32 x 5/32 [...] 2. Chronic kidney disease, stage 4 (severe) ([facility]) - ICD9: 585.4, ICD10: N18.4 - eGFR: 27 Stable 3. Heart failure, unspecified HF chronicity, unspecified heart failure type ([facility]) - ICD9: 428.9, ICD10: I50.9 Follow with cardiology 4. Morbid obesity with body mass index of 40.0-44.9 in adult ([facility]) - ICD9: 278.01, V85.41, ICD10: E66.01, Z68.41 5. Type 2 diabetes mellitus with stage 3b chronic kidney disease, without long-term current use of insulin ([facility]) - ICD9: 250.40, 585.3, ICD10: E11.22, N18.32 [...] Past Histories independently gathered by the clinical family support worker and the remaining scribed note accurately describes [...] Mariza Graham MA documented in this encounter [facility] 04-10-2024 Note HNO ID: [id number] Author: AMADO LOPES MD Service: ? Author [...] taking ASA 81 mg daily. Follows with [place] [facility]; had recent echo showing no change [...] CATARACT EXTRACTION HX Right 10/26/2017 EGD W/O [facility] SPEC VARICIES INJ N/A 02/24/2022 [...] 1 capsule by mouth once daily. Insulin [place], Disposable, (RELION PEN NEEDLES) 32 x 5/32 ndle Use as directed with insulin pen. 250.00. 4 injections/day. On insulin. Blood-Glucose Meter, Drum-type (ACCU-CHEK COMPACT PLUS CARE) kit Use as directed cyanocobalamin (VITAMIN B-12) 1,000 mcg tab Take 1 tablet by mouth once daily. Aspirin 81 mg Tab Take 81 mg by mouth. (more content not included)... [facility] 04-04-2024 Telephone encount er Note STAMP Please reach out to patient for overdue appointment for chronic disease management with myself. If he/she is no longer following with Dr. Lopes, please remove name from PCP field. Due for Medicare Wellness/Follow up, would need 40 minutes. Maciel Busby APRN.CNP [facility] 04-04-2024 Miscellaneous Notes Formattin g of this note might be different from the original. STAMP Please reach out to patient for overdue appointment for chronic disease management with myself. If he/she is no longer following with Dr. Lopes, please remove name from PCP field. Due for Medicare Wellness/Follow up, would need 40 minutes. Maciel Busby APRN.CNP documented in this encounter [facility] 02-28-2024 Note HNO ID: [id number] Author: JESSICA YNE MA Service: ? Author Type: Die Finisher Type: Progress Notes Filed: 02/28/2024 11:30 Note Text: POPULATION HEALTH NAVIGATION OUTREACH Action/FYI Patient is on [facility] CURRENT ROSTER Workbench list for below and [...] Yen MA February 28, 2024 11:27 AM [facility] 02-28-2024 History of Presen t illness Narrative POPULATION HEALTH NAVIGATION OUTREACH Action/FYI Patient is on [facility] CURRENT ROSTER Workbench list for below and [...] 2024 11:27 AM documented in this encounter [facility] 02-28-2024 Note Patient Outreach (NE TNAV) ROSA MYERS ([id number]) 1950 F Date Time Provider Department 02/28/24 JESSICA YEN NETHIRAMV During your visit today, we recorded the following information about you: Jessica Yen MA 02/28/2024 11:30 AM Signed POPULATION HEALTH NAVIGATION OUTREACH Action/ Patient is on [facility] CURRENT ROSTER Workbench list for [...] Population Health Navigation Outreach [3910] Cmt: Nadeen [facility] 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 - AWV, Care [...] capsule by mouth once daily. - Insulin [place], Disposable, (RELION PEN NEEDLES) 32 x 532 [...] kidney disease, stage 4 (severe) (HCC) *04/15/2023 prison current use of insulin (HCC) [Z79.4] 10/15/2023 Heart failure, unspecified (HCC) [I50.9] 04/15/2023 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*04/15/2023 Encounter Status:Closed by JESSICA YEN on 02/28/24 [facility] 02-22-2024 Telephone encount er Note The following approved medication requests have been transmitted electronically. Requested Prescriptions Pending Prescriptions Disp Refills carvedilol (COREG) 12.5 mg tablet 180 tablet 3 Sig: Take 1 tablet by mouth two times a day. Maciel Busby APRN.CNP [facility] 02-22-2024 Miscellaneous Notes Formattin g of this note is different from the original. The following approved medication requests have been transmitted electronically. Requested Prescriptions Pending Prescriptions Disp Refills carvedilol (COREG) 12.5 mg tablet 180 tablet 3 Sig: Take 1 tablet by mouth two times a day. Maciel Busby APRN.CNP Patient has been identified by name and date of : Yes, Provider Dr Lopes [facility] 02-22-24 Time 1:55p Patient phones for refill(s): Requested Prescriptions Pending Prescriptions Disp Refills carvedilol (COREG) 12.5 mg tablet 180 tablet 3 Sig: Take 1 tablet by mouth two times a day. Date of last office visit in primary care: 04/15/2023 Date of next office visit in primary care: Visit date not found Please advise. Thank you. Cindy Heart. documented in this encounter [facility] 02-22-2024 Telephone encount er Note Patient has been identified by name and date of : Yes, Provider Dr Lopes [facility] 02-22-24 Time 1:55p Patient phones for refill(s): Requested Prescriptions Pending Prescriptions Disp Refills carvedilol (COREG) 12.5 mg tablet 180 tablet 3 Sig: Take 1 tablet by mouth two times a day. Date of last office visit in primary care: 04/15/2023 Date of next office visit in primary care: Visit date not found Please advise. Thank you. Cindy Bull Pss. [facility] 01-20-2024 Telephone encount er Note Call to pt's son and notified him that Rx has been sent in, verbalized understanding. Marietta Escalona MA [facility] 01-20-2024 Miscellaneous Notes Formattin g of this [...] Judie Paiz, RN documented in this encounter [facility] 01-20-2024 Telephone encount er Note OK to refill as ordered Amado Lopes MD [facility] 01-20-2024 Note HNO ID: [id number] Author: CINDY CURRIE MA Service: ? Author Type: Die Finisher Type: Progress Notes Filed: 01/20/2024 11:04 Note Text: POPULATION HEALTH NAVIGATION OUTREACH Action/FYI Letter received and sent to be mailed. Navigation Signature: Cindy Currie Population Health Navigator January 20, 2024 11:03 AM [facility] 01-20-2024 Telephone encount er Note Son calls to report that he went to pick Levemir up at pharmacy and it was a vial instead of the pens which patient hasn't difficulty utilizing. Son didn't fill prescription and is asking for provider to send in prescription for pens. Verified with patient. Pended per request. Judie Paiz RN [facility] 01-18-2024 Note HNO ID: [id number] Author: JESSICA YEN MA Service: ? Author Type: Die Finisher Type: Progress Notes Filed: 01/18/2024 10:23 Note [...] Yen MA January 18, 2024 7:29 AM [facility] 01-18-2024 History of Presen t illness Narrative [...] 2024 7:29 AM documented in this encounter [facility] 01-18-2024 Note Patient Outreach (RITU TNAV) ROSA MYERS ([id number]) 1950 F Date Time Provider Department 01/18/24 [...] Nadeen Gerber workbench - AWV, Care gaps, [facility] gap closure - [facility] Prescriptions as [...] capsule by mouth once daily. 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 prison current use of insulin (HCC) [Z79.4] 10/15/2023 Heart failure, unspecified (HCC) [I50.9] 04/15/2023 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*04/15/2023 Letter Text Encoun (more content not included)... [facility] 01-13-2024 Miscellaneous Notes Formattin g of this [...] you. Anastasia Mcdermott. documented in this encounter [facility] 12-02-2023 Miscellaneous Notes Formattin g of this [...] Pushpa Neff Pss documented in this encounter [facility] 11-26-2023 Note HNO ID: [id number] Author: ?, ?, ? Service: ? Author Type: ? Type: Progress Notes Filed: 11/26/2023 13:22 Note Text: Rosa Myers is identified through a medication adherence outreach initiative based on pharmacy claims data from [employer] (insurer) for Statin medication(s). Patient is reviewed [...] and status) - left message Karlos Caputo [facility] 11-26-2023 History of Presen t illness Narrative Rosa Myers is identified through a medication adherence outreach initiative based on pharmacy claims data from [employer] (insurer) for Statin medication(s). Patient is reviewed [...] message Karlos Caputo documented in this encounter [facility] 11-26-2023 Note Patient Outreach ( ALPESH) ROSA MYERS ([id number]) 1950 F Date Time Provider Department 11/26/23 AMADO LOPES During your visit today, we recorded the following information about you: Harshal Karlos 11/26/2023 1:22 PM Signed Rosa Myers is identified through a medication adherence outreach initiative based on pharmacy claims data from [employer] (insurer) for Statin medication(s). Patient is reviewed [...] capsule by mouth once daily. 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 Author Type: ? Type: Progress [...] Gap or Scheduling/Wellness visits Payer: Payor: NADEEN [employer] / Plan: [employer] ACCESS / Product Type: PPO / Care Gap Reviewed:: Diabetic Eye Exam Flu Vaccine Reminder: Reminder note to check Health Maintenance for items below Health Maintenance items due: DTaP,Tdap,Td Vaccine(1 - Tdap) Never done RSV Vaccine(1 - 1-dose 60+ series) Never done Dilated Retinal Exam due on 03/11/2019 Influenza Vaccine(1) due on 05/28/2023 Navigation Signature: Danny Williamson September 21, 2023 11:16 AM [facility] 09-21-2023 Note Patient Outreach (NE TNAV) ROSA MYRES ([id number]) 1950 F Date Time Provider Department 09/21/23 DANNY WILLIAMSON ([facility]) NETNAV During your visit today, we recorded [...] Payer: Payor: NADEEN [employer]UE [employer] / Plan: [employer] ACCESS / Product [...] capsule by mouth once daily. - Insulin [place], Disposable, (RELION PEN NEEDLES) 32 x 5/32 [...] Encounter Status:Closed by DANNY WILLIAMSON on 09/21/23 [facility] 06-21-2023 Miscellaneous Notes Formattin g of this [...] Maciel Busby APRN.RENEE documented in this encounter [facility] 06-14-2023 Miscellaneous Notes Formattin g of this [...] advise. Karlos Weldon documented in this encounter [facility] 04-15-2023 History of Presen t illness Narrative [...] to help. 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 HM - Denies having Adv Dir/Living Will. [...] 1 capsule by mouth once daily. Insulin [place], Disposable, (RELION PEN NEEDLES) 32 x 5/32 [...] 4. Chronic kidney disease, stage 4 (severe) ([facility]) - ICD9: 585.4, ICD10: N18.4 - Stable [...] body mass index of 40.0-44.9 in adult ([facility]) - ICD9: 278.01, V85.41, ICD10: E66.01, Z68.41 Stable - Cont watching diet 6 mo f/u with labs. I agree with the Chief Complaint, ROS, and Past Histories independently gathered by the clinical family support worker and the remaining scribed note accurately describes my personal service to the patient. Medical Decision Making: Problems: Moderate: 2+ stable chronic illnesses Data: Unique test result(s) reviewed: 3+ Unique test(s) ordered: 3+ Risk: Moderate: Drug management Medical Decision Making Level: 4 - Moderate Amado Lopes MD The documentation for this note was completed by Marietta Escalona Ma acting as scribe for mAado Lopes MD. April 15, 2023 3:50 PM. Marietta Escalona Ma documented in this encounter [facility] 01-25-2023 History of Presen t illness Narrative [...] Care Gap or Scheduling/Wellness visits Payer: Payor: [employer] / Plan: [employer] ACCESS / Product Type: PPO / Care [...] 2023 10:41 AM documented in this encounter [facility] 01-18-2023 Miscellaneous Notes Formattin g of this note might be different from the original. Order report for Humalog faxed to [facility], notifying them to fill. Mariza Graham Ma Rosa Myers is calling Amado Lopes MD today with concern regarding the RX for Humalog kwikpen has not been received at the [facility] pharmacy in [place]. Please send today if possible. Patient states she did call our office and was advised this RX was already sent to [facility]. Patient notes the pharmacy has checked for this new RX and they state they do not have receipt of this. Patient has been identified by name and birthdate. Duration of symptoms: N/A Person calling: self Call patient at: at home [phone] (home) Was an appointment scheduled: No Closing statement: Results or non-symptom based questions: Thank you for calling [facility], your call will be returned within the next business day. [employer] documented in this encounter [facility] 12-23-2022 History of Presen t illness Narrative Rosa Myers is identified through a medication adherence outreach initiative based on pharmacy claims data from [employer] (insurer) for Non-insulin DM medication(s). Patient is reviewed 12/23/22 due to medication adherence concerns with the following medications (name, strength, sig): Farxiga 10mg, QD. Per reconcile dispense, last fill date and days supply: Filled 12/15/22 for 30 day supply Outcome of review/outreach: (choose outcome source and status) - Filled before Next fill date per reconcile dispense Sanaz Duarte ([employer]) documented in this encounter [facility] 12-14-2022 Miscellaneous Notes Formattin g of this [...] Take 1 tablet by mouth twice daily. Maicel Busby APRN.CNP Patient has been identified by [...] Pushpa Neff Pss documented in this encounter [facility] 11-03-2022 Miscellaneous Notes Formattin g of this [...] Kathi Crane LPN documented in this encounter [facility] 07-15-2022 Miscellaneous Notes Formattin g of this [...] you. Rufina Stuart documented in this encounter [facility] 07-14-2022 Miscellaneous Notes Formattin g of this [...] patient. [place] documented in this encounter [facility] 07-13-2022 History of Presen t illness Narrative [...] 4 times daily to inject insulin Insulin [place], Disposable, (RELION PEN NEEDLES) 32 x 5/32 [...] Lymph% 07/06/2022 15.4 Abs Lymph 07/06/2022 1.30 Gem% 07/06/2022 9.6 Abs Gem 07/06/2022 0.81 Eosin% 07/06/2022 1.7 Abs Eosin 07/06/2022 0.14 Baso% 07/06/2022 1.1 Abs Baso 07/06/2022 0.09 Immature Gran % 07/06/2022 0.4 Abs Immature Gran 07/06/2022 0.03 NRBC 07/06/2022 0.0 Absolute nRBC 07/06/2022 <0.01 Diff Type 07/06/2022 Auto ASSESSMENT/PLAN: 1. Controlled type 2 diabetes mellitus without complication, with long-term current use of insulin ([facility]) - ICD9: 250.00, V58.67, ICD10: E11.9, Z79.4 [...] Past Histories independently gathered by the clinical family support worker and the remaining scribed note accurately describes [...] Marietta Escalona Ma documented in this encounter [facility] 04-07-2022 Instructions Marietta Escalona Ma - 04/07/2022 3:35 PM EDT Anemia - Take Iron once daily, may only need to take for a few months. Gastro - Continue to take Protonix 40 mg once daily. New prescription has been sent into the pharmacy. Skin - Refer to Dermatology to evaluate the area, if not improving. documented in this encounter [facility] 04-07-2022 History of Presen t illness Narrative Chief Complaint Patient presents with: F/U 6 Month HPI Rosa Myers is a 72 year old female who presents here today for 6 month follow up. Pt here today for her routine 6 month follow up. Pt seen in office on 03/18/22 for a hospital f/u. Pt here today with her [id number], Ave. GI - Was prescribed Protonix 40 [...] 75 mg once daily. HM - Declines [employer] vaccines. Does not have Adv Dir/Living Will. [...] 4 times daily to inject insulin Insulin [place], Disposable, (RELION PEN NEEDLES) 32 x 5/32 [...] Lymph% 04/02/2022 10.7 Abs Lymph 04/02/2022 1.17 Gem% 04/02/2022 7.3 Abs Gem 04/02/2022 0.80 Eosin% 04/02/2022 1.1 Abs Eosin [...] Past Histories independently gathered by the clinical family support worker and the remaining scribed note accurately describes [...] Marietta Escalona Ma documented in this encounter [facility] 03-16-2022 History of Presen t illness Narrative POPULATION HEALTH NAVIGATION OUTREACH Action/FYI Vm left for a return call Due for TERESA, colonoscopy and mammogram Pt identified by name and : NO Outreach Outcome/Action Unable to reach patient: Left message Did you use a PCP flex slot to schedule this appointment? N/A Reason for Outreach Care Gap or Scheduling/Wellness visits Payer: Payor: NADEEN [employer] / Plan: ANTHEM MEDIBLUE ACCESS / Product [...] 2022 2:38 PM documented in this encounter [facility] 09-30-2021 History of Past i llness Narrative Problem Noted Date Diagnosed Date Resolved Date Stage 3b chronic kidney disease 09/30/2021 10/15/2023 documented as of this encounter (statuses as of 11/26/2023) [facility] History of Past illness Narrative* Problem Noted Date Diagnosed Date Resolved Date Stage 3b chronic kidney disease 09/30/2021 10/15/2023 documented as of this encounter (statuses as of 12/02/2023) [facility] History of Past illness Narrative* Problem Noted Date Diagnosed Date Resolved Date Stage 3b chronic kidney disease 09/30/2021 10/15/2023 documented as of this encounter (statuses as of 01/14/2024) [facility] Encounter for screening mammogram for breast cancer [facility] Diagnosis Controlled type 2 diabetes mellitus [...] of digestive system [facility] Diagnosis Controlled type 2 diabetes mellitus [...] of digestive system [facility] Diagnosis Controlled type 2 diabetes mellitus without complication, with long-term current use of insulin (HCC)- Primary documented in this encounter [facility] note* Diagnosis Controlled type 2 diabetes mellitus without complication, with long-term current use of insulin (HCC) Controlled type 2 diabetes mellitus without complication, without long-term current use of insulin (HCC) documented in this encounter [facility] note* Diagnosis Type 2 diabetes mellitus with stage 3b chronic kidney disease, without long-term current use of insulin (HCC)- Primary documented in this encounter [facility] note* Diagnosis Essential hypertension, benign Cerebral infarction, unspecified mechanism (HCC) documented in this encounter [facility] note* Diagnosis Encounter for screening mammogram for breast cancer documented in this encounter [facility] note* Diagnosis Type 2 diabetes mellitus with [...] thyroid function study [facility] Diagnosis Bilateral leg edema Edema Essential hypertension, benign Type 2 diabetes mellitus with stage 3b chronic kidney disease, without long-term current use of insulin (HCC) Controlled type 2 diabetes mellitus without complication, with long-term current use of insulin (HCC) documented in this encounter [facility] note* Diagnosis Type 2 diabetes mellitus with stage 3b chronic kidney disease, without long-term current use of insulin (HCC) documented in this encounter [facility] note* Diagnosis Controlled type 2 diabetes mellitus without complication, with long-term current use of insulin (HCC) documented in this encounter [facility] note* Diagnosis Essential hypertension, benign documented in this encounter [facility] note* Diagnosis Hyperlipidemia, unspecified hyperlipidemia type- Primary [...] site Other depression documented in this encounter [facility] note* Diagnosis Diabetic ulcer of right midfoot associated with type 2 diabetes mellitus, unspecified ulcer stage (HCC)- Primary Morbid obesity with body mass index of 40.0-44.9 in adult (HCC) Morbid obesity Essential hypertension, benign Type 2 diabetes mellitus with chronic kidney disease, with long-term current use of insulin, unspecified CKD stage (HCC) documented in this encounter [facility] note* Diagnosis Type 2 diabetes mellitus with stage 3b chronic kidney disease, without long-term current use of insulin (HCC) Controlled type 2 diabetes mellitus without complication, with long-term current use of insulin (HCC) documented in this encounter [facility] for referral (narrative)* Diagnostic Procedure Only (Routine) - Pending Review Specialty Diagnoses / Procedures Referred By Contnadia t Referred To Contact [facility] Diagnoses Encounter for screening mammogram for breast cancer Procedures BUSTER SCREENING SCREENING MAMMOGRAPHY BI 2-VIEW BREAST INC Amado Diaz MD [address] [place] [address] [facility] [address] [address] Referral ID Status Reason Start Date Expiration Date Visits Requested Visits Authorized [id number] Pending Review Auto-Generat ed Referral 03/04/2022 04/03/2023 1 1 [facility] Diagnostic Procedure Only (Routine) - Pending Review Specialty Diagnoses / Procedures Referred By Thuan jama Referred To Contact [facility] Diagnoses Encounter for screening mammogram for breast cancer Procedures BUSTER SCREENING SCREENING MAMMOGRAPHY BI 2-VIEW BREAST INC CAD Amado Lopes MD [address] [place] [address] [facility] [address] [place] [address] Referral ID Status Reason Start Date Expiration Date Visits Requested Visits Authorized [id number] Pending Review Auto-Generat ed Referral 02/24/2023 03/25/2024 1 1 T [facility] Reason for Referral Specialty Diagnoses / Procedures Referred By Thuan jama Referred To Contact Podiatry Diagnoses Diabetic ulcer of right midfoot associated with type 2 diabetes mellitus, unspecified ulcer stage (HCC) Procedures CONSULT TO PODIATRY OFFICE/OUTPATIENT [facility] 60 MINUTES Amado Lopes MD [address] [place] [address] Referral ID Status Reason Start Date Expiration Date Visits Requested Visits Authorized [id number] Authorized PCP Requested Referral 05/06/2024 05/06/2025 1 [...] or prosecute any alcohol or drug abuse patient.[facility] the event this information is protected by the Federal Confidentiality of Alcohol and Drug Abuse Patient Records regulations: The Federal rules restrict any use of the information to criminally investigate or prosecute any alcohol or drug abuse patient.[facility] the event this information is protected by the Federal Confidentiality of Alcohol and Drug Abuse Patient Records regulations: The Federal rules restrict any use of the information to criminally investigate or prosecute any alcohol or drug abuse patient.[facility] the event this information is protected by the Federal Confidentiality of Alcohol and Drug Abuse Patient Records regulations: The Federal rules restrict any use of the information to criminally investigate or prosecute any alcohol or drug abuse patient.[facility] HospitalIn the event this information is protected by the Federal Confidentiality of Alcohol and Drug Abuse Patient Records regulations: The Federal rules restrict any use of the information to criminally investigate or prosecute any alcohol or drug abuse patient.[facility] HospitalIn the event this information is protected by the Federal Confidentiality of Alcohol and Drug Abuse Patient Records regulations: The Federal rules restrict any use of the information to criminally investigate or prosecute any alcohol or drug abuse patient.[facility] HospitalIn the event this information is protected by the Federal Confidentiality of Alcohol and Drug Abuse Patient Records regulations: The Federal rules restrict any use of the information to criminally investigate or prosecute any alcohol or drug abuse patient.[facility] HospitalIn the event this information is protected by the Federal Confidentiality of Alcohol and Drug Abuse Patient Records regulations: The Federal rules restrict any use of the information to criminally investigate or prosecute any alcohol or drug abuse patient.[facility] HospitalIn the event this information is protected by the Federal Confidentiality of Alcohol and Drug Abuse Patient Records regulations: The Federal rules restrict any use of the information to criminally investigate or prosecute any alcohol or drug abuse patient.[facility] HospitalIn the event this information is protected by the Federal Confidentiality of Alcohol and Drug Abuse Patient Records regulations: The Federal rules restrict any use of the information to criminally investigate or prosecute any alcohol or drug abuse patient.[facility] HospitalIn the event this information is protected by the Federal Confidentiality of Alcohol and Drug Abuse Patient Records regulations: The Federal rules restrict any use of the information to criminally investigate or prosecute any alcohol or drug abuse patient.[facility] HospitalIn the event this information is protected by the Federal Confidentiality of Alcohol and Drug Abuse Patient Records regulations: The Federal rules restrict any use of the information to criminally investigate or prosecute any alcohol or drug abuse patient.[facility] HospitalIn the event this information is protected by the Federal Confidentiality of Alcohol and Drug Abuse Patient Records regulations: The Federal rules restrict any use of the information to criminally investigate or prosecute any alcohol or drug abuse patient.[facility] HospitalIn the event this information is protected by the Federal Confidentiality of Alcohol and Drug Abuse Patient Records regulations: The Federal rules restrict any use of the information to criminally investigate or prosecute any alcohol or drug abuse patient.[facility] HospitalIn the event this information is protected by the Federal Confidentiality of Alcohol and Drug Abuse Patient Records regulations: The Federal rules restrict any use of the information to criminally investigate or prosecute any alcohol or drug abuse patient.[facility] HospitalIn the event this information is protected by the Federal Confidentiality of Alcohol and Drug Abuse Patient Records regulations: The Federal rules restrict any use of the information to criminally investigate or prosecute any alcohol or drug abuse patient.[facility] HospitalIn the event this information is protected by the Federal Confidentiality of Alcohol and Drug Abuse Patient Records regulations: The Federal rules restrict any use of the information to criminally investigate or prosecute any alcohol or drug abuse patient.[facility] HospitalIn the event this information is protected by the Federal Confidentiality of Alcohol and Drug Abuse Patient Records regulations: The Federal rules restrict any use of the information to criminally investigate or prosecute any alcohol or drug abuse patient.[facility] HospitalIn the event this information is protected by the Federal Confidentiality of Alcohol and Drug Abuse Patient Records regulations: The Federal rules restrict any use of the information to criminally investigate or prosecute any alcohol or drug abuse patient.[facility] HospitalIn the event this information is protected by the Federal Confidentiality of Alcohol and Drug Abuse Patient Records regulations: The Federal rules restrict any use of the information to criminally investigate or prosecute any alcohol or drug abuse patient.[facility] HospitalIn the event this information is protected by the Federal Confidentiality of Alcohol and Drug Abuse Patient Records regulations: The Federal rules restrict any use of the information to criminally investigate or prosecute any alcohol or drug abuse patient.[facility] HospitalIn the event this information is protected by the Federal Confidentiality of Alcohol and Drug Abuse Patient Records regulations: The Federal rules restrict any use of the information to criminally investigate or prosecute any alcohol or drug abuse patient.[facility] HospitalIn the event this information is protected by the Federal Confidentiality of Alcohol and Drug Abuse Patient Records regulations: The Federal rules restrict any use of the information to criminally investigate or prosecute any alcohol or drug abuse patient.[facility] HospitalIn the event this information is protected by the Federal Confidentiality of Alcohol and Drug Abuse Patient Records regulations: The Federal rules restrict any use of the information to criminally investigate or prosecute any alcohol or drug abuse patient.[facility] HospitalIn the event this information is protected by the Federal Confidentiality of Alcohol and Drug Abuse Patient Records regulations: The Federal rules restrict any use of the information to criminally investigate or prosecute any alcohol or drug abuse patient.[facility] HospitalIn the event this information is protected by the Federal Confidentiality of Alcohol and Drug Abuse Patient Records regulations: The Federal rules restrict any use of the information to criminally investigate or prosecute any alcohol or drug abuse patient.[facility] HospitalIn the event this information is protected by the Federal Confidentiality of Alcohol and Drug Abuse Patient Records regulations: The Federal rules restrict any use of the information to criminally investigate or prosecute any alcohol or drug abuse patient.[facility] HospitalIn the event this information is protected by the Federal Confidentiality of Alcohol and Drug Abuse Patient Records regulations: The Federal rules restrict any use of the information to criminally investigate or prosecute any alcohol or drug abuse patient.[facility] HospitalIn the event this information is protected by the Federal Confidentiality of Alcohol and Drug Abuse Patient Records regulations: The Federal rules restrict any use of the information to criminally investigate or prosecute any alcohol or drug abuse patient.[facility] HospitalIn the event this information is protected by the Federal Confidentiality of Alcohol and Drug Abuse Patient Records regulations: The Federal rules restrict any use of the information to criminally investigate or prosecute any alcohol or drug abuse patient.[facility] HospitalIn the event this information is protected by the Federal Confidentiality of Alcohol and Drug Abuse Patient Records regulations: The Federal rules restrict any use of the information to criminally investigate or prosecute any alcohol or drug abuse patient.[facility] Care Teams (unrecognized sec tion and content) Marketing Copywriter Relationship Specialty Start Date End Date Amado Lopes MD [address] [place] [address] PCP - General 04/25/09 Marketing Copywriter Relationship Specialty Start Date End Date Amado Lopes MD [address] [place] [address] PCP - General 04/25/09 Marketing Copywriter Relationship Specialty Start Date End Date Amado Lopes MD [address] [place] [address] PCP - General 04/25/09 Marketing Copywriter Relationship Specialty Start Date End Date Amado Lopes MD [address] [place] [address], [place] [address] PCP - General 04/25/09 Marketing Copywriter Relationship Specialty Start Date End Date Amado Lopes MD [address] [place] [address], [place] [address] PCP - General 04/25/09 Marketing Copywriter Relationship Specialty Start Date End Date Amado Lopes MD [address] [place] [address], [place] [address] PCP - General 04/25/09 Marketing Copywriter Relationship Specialty Start Date End Date Amado Lopes MD [facility] [place] [address] PCP - General 04/25/09 Marketing Copywriter Relationship Specialty Start Date End Date Amado Lopes MD [facility] [place] [address] PCP - General 04/25/09 Marketing Copywriter Relationship Specialty Start Date End Date Amado Lopes MD [address] [place] [address], [place] [address] PCP - General 04/25/09 Marketing Copywriter Relationship Specialty Start Date End Date Amado Lopes MD [address] [place] [address], [place] [address] PCP - General 04/25/09 Marketing Copywriter Relationship Specialty Start Date End Date Amado Lopes MD [address] [place] [address] PCP - General 04/25/09 Marketing Copywriter Relationship Specialty Start Date End Date Amado Lopes MD [address] [place] [address] PCP - General 04/25/09 Marketing Copywriter Relationship Specialty Start Date End Date Amado Lopes MD [address] [place] [address] PCP - General 04/25/09 Marketing Copywriter Relationship Specialty Start Date End Date Amado Lopes MD [address] [place] [address] PCP - General 04/25/09 Marketing Copywriter Relationship Specialty Start Date End Date Amado Lopes MD [address] [place] [address] PCP - General 04/25/09 Marketing Copywriter Relationship Specialty Start Date End Date Amado Lopes MD [address] [place] [address] PCP - General 04/25/09 Marketing Copywriter Relationship Specialty Start Date End Date Amado Lopes MD [address] [place] [address] PCP - General 04/25/09 Marketing Copywriter Relationship Specialty Start Date End Date Amado Lopes MD [address] [place] [address] PCP - General 04/25/09 Marketing Copywriter Relationship Specialty Start Date End Date Amado Lopes MD [address] [place], [place] [address] PCP - General 04/25/09 Marketing Copywriter Relationship Specialty Start Date End Date Amado Lopes MD [address] [place] [address] PCP - General 04/25/09 Marketing Copywriter Relationship Specialty Start Date End Date Amado Lopes MD [address] [place], [place] [address] PCP - General 04/25/09 Marketing Copywriter Relationship Specialty Start Date End Date Amado Lopes MD [address] [place] [address] PCP - General 04/25/09 Marketing Copywriter Relationship Specialty Start Date End Date Amado Lopes MD [address] [place], [place] [address] PCP - General 04/25/09 Marketing Copywriter Relationship Specialty Start Date End Date Amado Lopes MD [address] [place] [address] PCP - General 04/25/09 Reason for Visit (unrecogniz ed section and content) Reason Onset Date Comments Population Health Navigation Outreach 03/16/2022 [place] [facility] Reason Comments F/U 6 Month Reason Comments F/U 3 Month Reason Onset Date Comments Refill Request 07/14/2022 Reason Onset Date Comments Refill Request 07/15/2022 Reason Comments Medication Problem Reason Onset Date Comments Refill Request 12/14/2022 Reason Onset Date Comments Allied Health Visit 12/23/2022 Medication A dherence Outreach Reason Onset Date Comments Population Health Navigation Outreach 01/25/2023 [place] [facility] Reason Comments Refill Request Reason [...] Comments Population Health Navigation Outreach 02/28/2024 [facility] 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 - [facility], Care gaps, HCC gap closure - [place] [facility] Reason Comments Appointment Reason Comments Physical Reason Onset Date Comments Population Health Navigation Outreach 05/03/2024 [place] [facility] - [facility] Reason Comments Wound Evaluation Bottom of right foot x 1 week Reason Comments Fax Request Reason Comments Opened In Error Reason Onset Date Comments Refill Request 06/06/2024 Reason Comments Fax Last OV Note INFORMATION SOURCE (unrecogn ized section and content) DATE CREATED AUTHOR 06/19/2024 [facility] FOR RECORDS PERTAINING TO PATIENTS WHO ARE [...] BE BASED ON THE PRIMARY CLINICAL RECORDS. [employer] [facility]. provides no warranty or guarantee of the accuracy or completeness of information in this document.
[2024-07-13] MEDS: Vancomycin HCl 2,000 MG in 0.9% Normal Saline (500mL Bag) 500 ML 250 MG IV (18:23)
[2024-07-13] MEDS: Enoxaparin 40 MG/0.4 ML Syringe 30 MG SC (18:28)
[2024-07-13 18:50] LABS: Bedside Glucose 81 mg/dL (74-106)
--- NOTE | 2024-07-13 18:52 | PCM.RX.CS ---
Consult Antibiotic Management Pharmacy has been consulted to manage selected antibiotic: Vancomycin Type of Intervention Type of Consult: New start Suspected Infection Suspected Infection: Skin/Soft tissue Prior Doses of Antibiotics Prior Doses of Antibiotics Received/Current Regimen: Vancomycin 2000 mg IV x 1 given 07/13/24 @ 0397 Labs Labs: Sodium 138 mmol/L (136-145) 07/13/24 13:45 Potassium 3.8 mmol/L (3.5-5.1) 07/13/24 13:45 Chloride 107 mmol/L (98-107) 07/13/24 13:45 Carbon Dioxide 24.0 mmol/L (21.0-32.0) 07/13/24 13:45 Anion Gap 7 (5-15) 07/13/24 13:45 BUN 48 mg/dL (7-18) H 07/13/24 13:45 Creatinine 1.85 mg/dL (0.55-1.02) H 07/13/24 13:45 Est GFR (MDRD) Af Amer 34 mL/min (>60) L 07/13/24 13:45 Est GFR (MDRD) Non-Af 28 mL/min (>60) L 07/13/24 13:45 BUN/Creatinine Ratio 25.9 RATIO (10-20) H 07/13/24 13:45 Glucose 40 mg/dL (74-106) L* 07/13/24 13:45 Dosing Weight Weight used for dosin kg Estimated Creatinine Clearance Estimated Creatinine Clearance: ~ 36 Goal Trough Goal Trough: 15-20 mcg/mL Pharmacy Plan for Drug Dosing Pharmacy Plan for Drug Dosing: Vancomycin 2000 mg IV x 1 loading dose, followed by 500 mg Q8H Pharmacy Service will continue to monitor and adjust dosing as required. Follow-Up Labs Follow-Up Labs: Trough: Vancomycin Date/Time Labs Ordered Labs to be done on [date and time ordered]: 07/14/24 @ 4637
[2024-07-13] MEDS: Atorvastatin Calcium 40 MG Tablet PO (21:46)
[2024-07-13] MEDS: Carvedilol 25 MG Tablet PO (21:46)
[2024-07-13] MEDS: Piperacil/Tazobactam 3.375 GM in 0.9% Normal Saline (50mL MB+) 50 ML IV (21:46)
[2024-07-13] MEDS: Senna/Docusate Sodium 1 Tablet 2 TABLET PO (21:46)
[2024-07-13 22:43] LABS: Bedside Glucose 117 mg/dL (74-106)
[2024-07-14] VITALS (12 sets, daily range): BP systolic 115–160; BP diastolic 50–103; PULSE 63–86; RESP 16–24; TEMP 36.1–36.8; O2SAT 94–100; BMI 43.7
--- NOTE | 2024-07-14 | BON_PTH ---
PATHOLOGY RESULTS PATIENT: PRICILA WALDROP LOC: [facility]3 U#:[id number] AGE/SX: 74/F [facility]OM: [facility] RE07/13/[address]: Dr. Mariza Rowley DO : 1950 BED: 1 DIS: 07/18/2024 SPEC #: [id number] RECD: 07/17/24 07:11 STATUS: JERRY REQ #: [id number] ALVARO: 07/14/24 00:[address]: Palu Erwin DEPT: SURGICAL PATHOLOGY RECD BY: Peter Prasad ENTERED: 07/17/24 09:24 SP TYPE: Bone OTHR DR: MD Dr. Eduardo Nazario MD Dr. Kathryn Lee, DO Dr. Mark Elderbrock, MD Dr. Michael Marshall, DPM MD Dr. Zachery Rodas MD Dr. Robert Leininger, MD Tissues: Bone of foot, NOS Bone of foot, NOS Procedures: Decalcification bone/plaque Surgery Specimen Level III Comments: @ Ordering doctor for DEC edited from to @ celi MITCHELL at 07/17/24925 @ Ordering doctor for SUIII edited from to @ celi MITCHELL at 07/17/24925 @ Submitting doctor edited from to @ celi MITCHELL at 07/17/24925 HEADER OPERATION: 5th metatarsal head removal, debridement of ulceration PRE-OP DIAGNOSIS: Non-pressure chronic ulcer of other part of right foot with necrosis of muscle, non-pressure chronic ulcer of other 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 TISSUE SUBMITTED: A- Left 5th metatarsal bone, B- Right 5h metatarsal bone MICROSCOPIC DIAGNOSIS A. Left 5th metatarsal bone, excision: A piece of bone with focal minimal chronic inflammation and reactive changes. Negative for acute osteomyelitis. B. Right 5th metatarsal bone, excision: Pieces of bone with acute osteomyelitis. Adherent piece of fibroconnective tissue with acute inflammation and granulation tissue reaction. 07/19/2024 MICROSCOPIC DESCRIPTION Slides are reviewed. GROSS DESCRIPTION A. Received in fixative is one container labeled with the patient's name and designated 5th left metatarsal bone. The specimen consists of a piece of bone measuring 1.2 x 1.2 x 1.0cm. The specimen is serially sectioned and submitted entirely in one cassette after decalcification. B. Received in fixative is one container labeled with the patient's name and designated Left 5th metatarsal bone. The specimen consists of a piece of bone measuring 2.2 x 1.3 x 1.0cm. Also present in the container are two variable sized pieces of bone measuring in aggregate 1.5 x 1.5 x 0.2cm. The entire specimen is submitted in two cassettes after decalcification. SJ 07/17/2024 TC:2 CPT:72929c8,85097o5
[2024-07-14] MEDS: Vancomycin IV 500 MG/100 ML BAG 100 MG IV ×2 (02:18→11:01)
[2024-07-14] MEDS: Piperacil/Tazobactam 3.375 GM in 0.9% Normal Saline (50mL MB+) 50 ML IV ×2 (06:21→18:57)
[2024-07-14 06:45] LABS: Absolute Lymphocyte Count 1.12 X10^3/uL (0.83-4.51); Absolute Neutrophil Count 6.4 X10^3/uL (2.0-7.7); Basophil# 0.05 X10^3/uL; Basophil% 0.6 % (0-1); Eosinophil# 0.16 X10^3/uL; Eosinophils% 1.9 % (0-5); Hematocrit 27.2 % (37-47); Hemoglobin 8.3 g/dL (12.0-15.0); Lymphocyte # 1.12 X10^3/ul (0.83-4.51); Mean Corp Hgb Conc 30.5 g/dL (32-36); Mean Corpuscular Hgb 24.8 pg (27.0-32.0); Mean Corpuscular Volume 81.2 fL (81-99); Mean Platelet Vol. 9.9 fl (6.2-12.0); Monocyte# 0.79 X10^3/uL; Monocyte% 9.2 % (0-10); NRBC Flagged by Analyzer 0 % (0-5); Neutrophil # 6.43 X10^3/uL (2.7-7.7); Neutrophil % 74.8 % (47-70); Platelet Count 302 K/mm3 (150-450); RBC Distribution Width CV 14.7 % (11.6-14.6); RBC Distribution Width SD 43.5 fl (35.1-43.9); Red Blood Count 3.35 M/mm3 (4.2-5.4); White Blood Count 8.6 K/mm3 (4.4-11.0)
[2024-07-14 07:21] LABS: Anion Gap 6 (5-15); BUN 46 mg/dL (7-18); BUN/Creat Ratio 25.4 RATIO (10-20); Calcium,Total 9.1 mg/dL (8.5-10.1); Chloride 110 mmol/L (98-107); Creatinine, Serum 1.81 mg/dL (0.55-1.02); EST Glomerular Filtration Rate 29 mL/min (>60); Est Glom Filt Rate - Afr Amer 35 mL/min (>60); Estimated Creatinine Clearance 35.46 ml/min; Glucose 106 mg/dL (74-106); Potassium 4.3 mmol/L (3.5-5.1); Sodium Level 140 mmol/L (136-145)
--- NOTE | 2024-07-14 07:32 | PCM.CONS.GEN ---
Assessment & Plan Assessment/Plan (1) Non-pressure chronic ulcer of other part of right foot with necrosis of muscle: (2) Non-pressure chronic ulcer of other 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: (3) Cellulitis of foot, right: (4) Cellulitis of left lower limb: (5) Diabetes mellitus with diabetic polyneuropathy: (6) Type 2 diabetes mellitus with foot ulcer: (7) Dyspnea: (8) Diabetic infection of left foot: (9) Debility: (10) Chronic kidney disease (CKD): PLAN: Plan Patient seen and evaluated Bilateral ulcerations sub 5th metatarsal head: There is a full-thickness ulceration noted to the plantar lateral aspect of the fifth metatarsal head of the right foot. Ulceration does demonstrate some exposure of the plantar aspect of the fifth metatarsal head with surrounding healthy granular tissue. Ulceration measures 2.5 cm x 2.5 cm x 0.5 cm. There is mild erythema dorsally of the foot. No palpable fluctuance/bogginess noted, no purulent drainage, no soft tissue crepitus. Left foot demonstrates new ulceration subfifth metatarsal head with some granular tissue and necrotic eschar. There is serosanguineous drainage and some palpable fluctuance about the eschar. Ulceration measures 4.0 x 4.1 x 0.1 localized erythema about the ulceration and dorsal foot. No purulent drainage is noted. WBC 8.6, HgbA1c 6.0% on 07/14/24, Hgb 8.3, Hct 27.2, Glucose 106, BUN 46, Cr 1.81 Currently on IV Vanco/Zosyn Bilateral ulcerations were dressed with Betadine soaked gauze and dry sterile dressing. Nursing may change dressing daily. Medicine currently following for medical management, they are greatly appreciated ID consulted for antibiotic management Vascular consulted Wound nurse following for assistance in dressing changes Discussed with the patient and her son the plan for surgical intervention. The son and patient are in agreement with the procedure. Both son and patient are understanding that this is not a elective procedure but a limb salvage procedure to prevent worsening infection and more proximal amputation. The surgical plan was discussed in addition to typical postoperative course. Discussed the benefits of the procedure as well as the risks and complications. Patient is understanding the risks include but are not limited to the following: Pain, continued pain, complex regional pain syndrome, infection, dehiscence, need for further surgical intervention, edema, delayed healing/nonhealing, bleeding, neuritis/numbness, scarring, poor cosmetic result, phantom pain, transfer lesions, floating toe, contracted toe, blood clot, stroke, heart attack, difficulty wearing shoe gear, inability to wear shoe gear, loss of function, loss of limb, loss of life. Patient was able to repeat these back. Patient is willing to move forward with the surgical procedure/intervention. No promises were made. No guarantees were given. Patient will be consented for bilateral fifth metatarsal head excision, debridement of bilateral foot ulcerations, with application of advanced wound care product bilateral foot. At this time tentative surgical intervention scheduled for this afternoon around 2:30 PM Plan postoperatively will be nonweightbearing status to bilateral lower extremity. She may place weight to heel for transfer purposes. Likely will need SNF placement for assistance in her care and recovery postoperatively. Son was in agreement with this when discussed. Paul Erwin Jr. D.P.M. [facility] [phone] HPI Consult Data Date of Consult: 07/14/24 HPI Narrative Reason for Consultation: Bilateral fifth metatarsal head ulceration HPI Narrative: PRICILA WALDROP, is a 74 F who presents to [facility] ED by way of the wound care center on 07/13/2024 with bilateral subfifth metatarsal head ulcerations. She has PMHx of DM type II with peripheral polyneuropathy, CKD, HTN, CHF, ischemic cardiomyopathy, Hx of CVA, and GI bleed in January 2022. Patient has been following with me in the wound care center with care of right foot ulceration duration of 4 weeks. Prior to this ulceration had been treated in the office for 3 weeks. She had undergone serial debridements, LEAS and venous studies, 6 weeks of oral antibiotics, and application of EpiFix grafting for the right foot with preparation for HBO dive however ulceration despite improving to breakdown centrally with exposure of the fifth metatarsal head and new ulceration of increased severity to the subfifth metatarsal head left foot. I discussed with family at that time the the new onset of ulceration with worsening condition of the left foot and discussed hospitalization with IV antibiotics and surgical intervention. Her son who aids in her care was in agreement with the plan for intervention. She was started on IV vancomycin/Zosyn in the ED and was admitted for continuation of IV antibiotics with surgical intervention for bilateral foot. [facility] Medical History Dyspnea Ischemic cardiomyopathy History of CVA (cerebrovascular accident) Atherosclerosis of coronary artery without angina pectoris Type 2 diabetes mellitus Secondary pulmonary arterial hypertension Chronic combined systolic and diastolic CHF (congestive heart failure) Essential hypertension Obesity Chronic kidney disease (CKD) GI bleed (01/2022) Anemia Diabetes mellitus type 2 in obese Hyperlipidemia Home Medications ?Medication ?Instructions ?Recorded ?Last Taken ?Type atorvastatin 40 mg tablet 40 mg PO QHS CHOLESTEROL 02/22/22 Unknown History valsartan 160 mg tablet 160 mg PO DAILY BLOOD PRESSURE 02/22/22 Unknown History aspirin 81 mg tablet,delayed 81 mg PO DAILY HEART HEALTH 06/03/22 Unknown History release (Adult Aspirin Regimen) carvedilol 25 mg tablet 25 mg PO BID HEART #180 tabs 07/12/24 Unknown Rx dapagliflozin propanediol 10 mg 10 mg PO DAILY DIABETES #90 tabs 07/12/24 Unknown Rx tablet (Farxiga) furosemide 40 mg tablet 80 mg PO DAILY EDEMA 07/12/24 Unknown History insulin detemir U-100 100 unit/mL 60 unit subcut BREAKFAST 07/12/24 Unknown History (3 mL) subcutaneous pen (Levemir FlexTouch U-100 Insulin) blood sugar diagnostic (Accu-Chek 07/13/24 Unknown History Alvina Plus test strips) ciprofloxacin HCl 500 mg tablet 500 mg PO BID ANTIBIOTIC 07/13/24 Unknown History doxycycline hyclate 100 mg tablet 100 mg PO BID ANTIBIOTIC 07/13/24 Unknown History fluoxetine 10 mg capsule 10 mg PO DAILY 07/13/24 Unknown History insulin lispro 100 unit/mL 25 unit subcut ACHS 07/13/24 Unknown History subcutaneous pen (Humalog KwikPen (U-100) Insulin) metolazone 5 mg tablet 5 mg PO DAILY 07/13/24 Unknown History Allergy/AdvReac Type Severity Reaction Status Date / Time No Known Allergies Allergy Verified 07/13/24 12:39 Family History Father Diabetes Heart disease CAD (coronary artery disease) Mother Heart disease Surgical History History of coronary artery stent placement (09/2013) H/O vein stripping Status post angioplasty with stent Social History household members: family Smoking Status: Former smoker how long ago did patient quit smokin years ago alcohol intake: never substance use type: does not use caffeine: Yes ROS Constitutional Constitutional: Reports fatigue and weakness; Denies body ache(s), chills or fever(s) Eyes Eyes: Denies change in vision, diplopia or loss of vision ENT HEENT: Denies dysphagia, rhinorrhea or sore throat Cardiovascular Cardiovascular: Denies chest pain, claudication or palpitations Respiratory/Chest Respiratory/Chest: Reports dyspnea and wheezing; Denies cough Gastrointestinal Gastrointestinal: Denies abdominal pain, constipation, diarrhea, nausea or vomiting Genitourinary Genitourinary: Denies dysuria, hematuria or urinary urgency Musculoskeletal Musculoskeletal: Denies joint pain, joint stiffness or joint swelling Integumentary Integumentary: Denies jaundice, lesions, pruritus or rash Neurologic Neurologic: Denies dizziness, numbness or seizures Psychiatric Psychiatric: Denies anxiety or depression Endocrine Endocrinology: Denies cold intolerance, heat intolerance, polydipsia, polyphagia or polyuria Hematologic/Lymphatic Hematologic/Lymphatic: Denies easy bleeding or easy bruising Allergic/Immunologic Allergic/Immunologic: Denies urticaria Physical Exam Const alert, oriented x3 and no apparent distress General Appearance: cooperative Nutritional Appearance: morbidly obese HEENT normocephalic Eyes General Eye: normal appearance of both eyes Neck General: normal visual inspection Lymph Lymphatic: no lymphadenopathy noted and no lymphedema noted Resp Resp Narrative: Diminished with bilateral chronic wheezing. Cardio regular rate and regular rhythm Extremity Extremity Narrative: Vascular: DP and PT pulses weakly palpable. CFT is less than 5 seconds to the digits. Temperature gradient is normal. Hair growth is absent to the digits. There is chronic rubor/erythema secondary to chronic venous stasis changes and trophic changes of the lower extremity with overlying chronic xerotic skin flaking. Neurologic: Light touch sensation diminished. Protective sensation is absent secondary to diabetic peripheral polyneuropathy. Gross sensation is intact. Musculoskeletal: Muscle strength 4 of 5 due to generalized weakness as patient does not ambulate much. Does ambulate with the assistance of walker. There is decreased range of motion of the ankle joint dorsiflexion with the knee extended without pain or crepitus. No calf pain to palpation. Decreased range of motion of the STJ, MTJ, and first MTPJ without pain or crepitus. No pain to palpation about the ulcerative sites subfifth metatarsal head bilateral foot. Dermatologic: Bilateral lower extremity demonstrates edema and chronic venous stasis changes with dermatitis. There is a full-thickness ulceration noted to the plantar lateral aspect of the fifth metatarsal head of the right foot. Ulceration does demonstrate some exposure of the plantar aspect of the fifth metatarsal head with surrounding healthy granular tissue. Ulceration measures 2.5 cm x 2.5 cm x 0.5 cm. There is mild erythema dorsally of the foot. No palpable fluctuance/bogginess noted, no purulent drainage, no soft tissue crepitus. Left foot demonstrates new ulceration subfifth metatarsal head with some granular tissue and necrotic eschar. There is serosanguineous drainage and some palpable fluctuance about the eschar. Ulceration measures 4.0 x 4.1 x 0.1 localized erythema about the ulceration and dorsal foot. No purulent drainage is noted. Skin no rashes or lesions noted Neuro moves all extremities Lab / Micro Data 07/14/24 06:23 07/14/24 06:23 Labs: Laboratory Results - last 24 hr 07/13/24 12:42: POC Glucose 33 L* 07/13/24 13:40: POC Glucose 49 L 07/13/24 13:45: WBC 10.8, RBC 3.82 L, Hgb 9.3 L, Hct 31.3 L, MCV 81.9, MCH 24.3 L, MCHC 29.7 L, RDW Std Deviation 44.3 H, RDW Coeff of Bulmaro 14.8 H, Plt Count 332, MPV 10.1, Immature Gran % (Auto) 0.500, Neut % (Auto) 78.9 H, Lymph % (Auto) 8.9 L, [place] % (Auto) 9.7, Eos % (Auto) 1.4, Baso % (Auto) 0.6, Absolute Neuts (auto) 8.5 H, Absolute Lymphs (auto) 0.96, Nucleated RBC % 0, ESR 67 H, Sodium 138, Potassium 3.8, Chloride 107, Carbon Dioxide 24.0, Anion Gap 7, BUN 48 H, Creatinine 1.85 H, Est GFR (MDRD) Af Amer 34 L, Est GFR (MDRD) Non-Af 28 L, BUN/Creatinine Ratio 25.9 H, Glucose 40 L*, Calcium 9.3, Phosphorus 3.8, Magnesium 2.3, C-React Prot Ext Range 97.30 H 07/13/24 14:49: POC Glucose 62 L 07/13/24 15:50: POC Glucose 73 L 07/13/24 18:21: POC Glucose 81 07/13/24 21:45: POC Glucose 117 H 07/14/24 06:23: WBC 8.6, RBC 3.35 L, Hgb 8.3 L, Hct 27.2 L, MCV 81.2, MCH 24.8 L, MCHC 30.5 L, RDW Std Deviation 43.5, RDW Coeff of Bulmaro 14.7 H, Plt Count 302, MPV 9.9, Immature Gran % (Auto) 0.500, Neut % (Auto) 74.8 H, Lymph % (Auto) 13.0 L, [place] % (Auto) 9.2, Eos % (Auto) 1.9, Baso % (Auto) 0.6, Absolute Neuts (auto) 6.4, Absolute Lymphs (auto) 1.12, Nucleated RBC % 0, Sodium 140, Potassium 4.3, Chloride 110 H, Carbon Dioxide 24.0, Anion Gap 6, BUN 46 H, Creatinine 1.81 H, Estim Creat Clear Calc 35.46, Est GFR (MDRD) Af Amer 35 L, Est GFR (MDRD) Non-Af 29 L, BUN/Creatinine Ratio 25.4 H, Glucose 106, Calcium 9.1 Imaging Radiology Impression Foot X-Ray 07/13/24 13:31 IMPRESSION: 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 Plantar and posterior calcaneal spurs. Soft tissue swelling around the ankle and along the dorsum of the foot. Electronically Signed: Dustin Rowley MD at 14:34 EDT , Foot X-Ray 07/13/24 13:45 IMPRESSION: Mild degenerative arthrosis of the talonavicular, calcaneocuboid, and subtalar joints. Plantar and posterior calcaneal spurs. Soft tissue swelling around the ankle and along the dorsum of the foot. Electronically Signed: Dustin Rowley MD at 14:42 EDT ,
--- NOTE | 2024-07-14 07:54 | WOUNDNOTE ---
wound photo: right foot
--- NOTE | 2024-07-14 07:55 | WOUNDNOTE ---
wound photo: left foot
--- NOTE | 2024-07-14 09:50 | CASEMGMT ---
RYNE PICHARDO Assessment: Face to Face with pt for initial transition planning/care coordination assessment. RN KYLEE introduced self and role at [facility], pt voices understanding and consents to assessment. Pt is A&O x4 and answers all questions appropriately at this time. Pt lying in bed in no distress. Care providers, pharmacy, and demographics verified/updated. Admitting Dx: bilat DM ulcers of feet Strata Score: 2 PCP:Jacob Specialists:Rip, pod at [facility], Haylie, cardio Preferred Pharmacy: [facility] Insurance: [employer] [facility] Prescription Benefit: yes LNOK: Yamil Myers, ; Marcell Myesr, son Living Arrangements: Pt lives with in a mother in law suite that has 12 steps to enter. Pt reports that she uses a concrete wall to hold until until there is a rail. Pt reports she is I in ADLS at home. Pt does laundry, picks up groceries after ordering and does meals. Pt denies concerns at home. Pt states her son lives separately but only 15 steps away. Transportation: Pt doesn't drive. Pt transports her. DME:cane, walker, BGM with sufficient supply of strips and lancets; Insulin with sufficient supply of needles HHC/SNF: Pt is active with SN through [facility]. Pt has been to [facility] in the past. Discussed with pt that after surgery today she will be non wt bearing per note. Pt states she is aware and that she was told she may need SNF for 3 wks. Pt states she is agreeable to this if it is the case. Pt would like to go back to [facility]. She denies need for a list of other options. She states this is close for her son to visit her. Pt expresses that she is sad that she had to leave her and cats. Pt states no further concerns/needs. CM to follow. Advised pt to ask CM if any further question/concerns/needs arise, voices understanding. Pt Goal: Home but understands SNF may be necessary and she is willing to go to SNF if need be Plan: TBD pending surgery and therapy progress, [facility]. Updated RYNE PICHARDO MS3 Galindo MICHELE CM
[2024-07-14] MEDS: Carvedilol 25 MG Tablet PO ×2 (10:11→21:32)
--- NOTE | 2024-07-14 10:56 | CASEMGMT ---
Discharge Planning A list of?SNF providers including quality and resource use data and consistent with the patient's preferred geographic region, medical needs, and insurance network was created in [employer] Guide.? This list was provided to the SW. Mary Spears Discharge Planning Asst.
--- NOTE | 2024-07-14 12:00 | CASEMGMT ---
Social Work SW met with pt and introduced self and role of SW. Pt is to have surgery today and feels she cannot return home at time of dischrage and will need short term SNF prior to return home. A list of SNF providers including quality and resource use data and consistent with the patient?s preferred geographic region, medical needs, and insurance network were provided from the [employer] Guide. Pt requesting placement at [facility]. Referral to be made after surgery and therapy. SW requested pt review list and make addtional choices in the event [facility] cannot accept. Plan: Referral to [facility] after surgery. Pt will need precert. Pt here through the weekend. ROSE Mcghee
[2024-07-14 12:02] LABS: Bedside Glucose 103 mg/dL (74-106)
[2024-07-14 12:21] LABS: Bedside Glucose 160 mg/dL (74-106)
--- NOTE | 2024-07-14 13:11 | PCM.PROGNOTE ---
Subjective Subjective Patient seen and examined. She had no active complaints. She had an uneventful night. Review of systems otherwise negative. She is due for surgery on her feet by podiatry later today. She has remained hemodynamically stable. Objective Data Objective Data Vital Signs: Vital Signs Temp Pulse Resp BP Pulse Ox O2 Del Method 98.3 F 71 18 115/54 L 96 Room Air 07/14/24 02:19 07/14/24 02:19 07/14/24 02:19 07/14/24 02:19 07/14/24 02:19 07/14/24 02:19 Oxygen Delivery Method Room Air Weight: 272 lb 0.807 oz Body Mass Index (BMI) 43.7 Intake & Output: Intake and Output for Last 24 Hours 07/12/24 07/13/24 07/14/24 23:59 23:59 23:59 Intake Total 665 / 665 200 / 200 Output Total 450 / 450 500 / 500 Balance 215 / 215 -300 / -300 Lab / Micro Data 07/14/24 06:23 07/14/24 06:23 Labs: Laboratory Results - last 24 hr 07/13/24 13:40: POC Glucose 49 L 07/13/24 13:45: WBC 10.8, RBC 3.82 L, Hgb 9.3 L, Hct 31.3 L, MCV 81.9, MCH 24.3 L, MCHC 29.7 L, RDW Std Deviation 44.3 H, RDW Coeff of Bulmaro 14.8 H, Plt Count 332, MPV 10.1, Immature Gran % (Auto) 0.500, Neut % (Auto) 78.9 H, Lymph % (Auto) 8.9 L, [place] % (Auto) 9.7, Eos % (Auto) 1.4, Baso % (Auto) 0.6, Absolute Neuts (auto) 8.5 H, Absolute Lymphs (auto) 0.96, Nucleated RBC % 0, ESR 67 H, Sodium 138, Potassium 3.8, Chloride 107, Carbon Dioxide 24.0, Anion Gap 7, BUN 48 H, Creatinine 1.85 H, Est GFR (MDRD) Af Amer 34 L, Est GFR (MDRD) Non-Af 28 L, BUN/Creatinine Ratio 25.9 H, Glucose 40 L*, Calcium 9.3, Phosphorus 3.8, Magnesium 2.3, C-React Prot Ext Range 97.30 H 07/13/24 14:49: POC Glucose 62 L 07/13/24 15:50: POC Glucose 73 L 07/13/24 18:21: POC Glucose 81 07/13/24 21:45: POC Glucose 117 H 07/14/24 06:20: POC Glucose 103 07/14/24 06:23: WBC 8.6, RBC 3.35 L, Hgb 8.3 L, Hct 27.2 L, MCV 81.2, MCH 24.8 L, MCHC 30.5 L, RDW Std Deviation 43.5, RDW Coeff of Bulmaro 14.7 H, Plt Count 302, MPV 9.9, Immature Gran % (Auto) 0.500, Neut % (Auto) 74.8 H, Lymph % (Auto) 13.0 L, [place] % (Auto) 9.2, Eos % (Auto) 1.9, Baso % (Auto) 0.6, Absolute Neuts (auto) 6.4, Absolute Lymphs (auto) 1.12, Nucleated RBC % 0, Sodium 140, Potassium 4.3, Chloride 110 H, Carbon Dioxide 24.0, Anion Gap 6, BUN 46 H, Creatinine 1.81 H, Estim Creat Clear Calc 35.46, Est GFR (MDRD) Af Amer 35 L, Est GFR (MDRD) Non-Af 29 L, BUN/Creatinine Ratio 25.4 H, Glucose 106, Hemoglobin A1c 6.0 H, Calcium 9.1 07/14/24 11:59: POC Glucose 160 H Radiography Diagnostic Testing: Radiology Impression Foot X-Ray 07/13/24 13:31 IMPRESSION: 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 Plantar and posterior calcaneal spurs. Soft tissue swelling around the ankle and along the dorsum of the foot. Electronically Signed: Dustin Rowley MD at 14:34 EDT , Foot X-Ray 07/13/24 13:45 IMPRESSION: Mild degenerative arthrosis of the talonavicular, calcaneocuboid, and subtalar joints. Plantar and posterior calcaneal spurs. Soft tissue swelling around the ankle and along the dorsum of the foot. Electronically Signed: Dustin Rowley MD at 14:42 EDT , Physical Exam Const alert, oriented x3, no apparent distress and well nourished Constitutional Narrative: morbidly obese General Appearance: cooperative HEENT normocephalic, head/scalp atraumatic, moist oral mucous membranes and oropharynx normal Eyes PERRL and EOMs intact bilaterally Neck no lymphadenopathy and supple Lymph Lymphatic: no lymphadenopathy noted and no lymphedema noted Resp normal respiratory effort, normal air movement and clear to auscultation bilaterally Resp Narrative: on room air. Cardio regular rate, regular rhythm, S1 normal heart sound, S2 normal heart sound and no murmurs GI normal to inspection, nondistended, normoactive bowel sounds, soft to palpation, non-tender and non-distended Extremity Extremity Narrative: both lower extremities wrapped in bandage. Skin Skin Narrative: both lower extremities wrapped in bandage. Neuro CN's II-XII intact bilaterally, no focal motor deficits, no sensory deficits noted and deep tendon reflexes 2+ bilaterally Motor Exam: strength 5/5 throughout Psych thought process normal and cooperative Appearance: appropriate Assessment & Plan Assessment/Plan (1) Cellulitis of left lower limb: (2) Non-pressure chronic ulcer of other 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: PLAN: Plan #Bilateral diabetic foot ulcer Failed outpatient therapy. She had been following up at the wound center and had been on oral antibiotics. However her wounds were not improving. Sent into the ED from the wound center. Currently on IV vancomycin and Zosyn Podiatry on board. For surgery later today. Per podiatry, to have bilateral fifth metatarsal head excision with debridement of bilateral foot ulcerations and application of advanced wound care products to the bilateral feet today. #Type 2 diabetes mellitus: Currently n.p.o. pending surgery. Usually on insulin Levemir 16 units with breakfast as well as dapagliflozin 10 mg daily. Insulin sliding scale. Accu-Cheks every 6 hourly as she is NPO. To resume insulin once she is done with the surgery Her A1c is only 6 though, so with this high dose of Levemir 60 units daily she is at high risk of hypoglycemia. Will cut down Levemir to 40 daily once she resumes a diet after surgery. #Combined heart failure: Not in exacerbation. Continue diuresis. Breathing treatments bronchodilators. On valsartan and carvedilol as well as Lasix and metolazone #Benign essential hypertension: On valsartan and carvedilol #Anemia: Hemoglobin is 8.3 with a baseline of around 8-9. Will monitor closely. May be related to chronic kidney disease also. #CKD stage IV: Creatinine is 1.81 with a baseline creatinine of around 1.6. His creatinine has however gone up to even 2. #Hyperlipidemia: On statin #History of CAD with ischemic cardiomyopathy #History of CVA: on aspirin and statin. DVT prophylaxis: lovenox Charges/Coding Visit Charges Inpatient E&M: 30461 Subs Hosp L2
--- NOTE | 2024-07-14 14:35 | NURSING ---
Off unit for surgery at this time.
--- NOTE | 2024-07-14 15:22 | SUR.PREOP ---
MYSELF AND ANOTHER NURSE WAS GOING TO CHANGE THE PATIENT'S ATTENDS. SHE SAID I CAN'T BREATHE WHEN I LAY FLAT. WE TOLD HER THAT WE HAVE TO LAY HER DOWN SOME AND TURN HER SIDE TO SIDE. WE CLEANED HER UP QUICK WE COULD AND APPLIED A NEW ATTENDS. SHE GOT VERY SHORT OF BREATH AND STATED THAT SHE IS GOING TO GO AUDIBLE WHEEZNG NOTED. SO WE APPLIED O2. PATIENT PUT ON THE OXYGEN AT 5 LITERS AND WAS SATING 100%. SHE REBOUNDED QUICK AND SAID THAT I COULD TAKE HER OFF. I LOWERED HER TWO 2 LITERS. SHE IS STILL SATING 100% BUT STATES SHE STILL FEELS SOME SHORTNESS OF BREATH AND SHE IS TACHYPNEIC. PATIENT TAKES LASIX AT HOME BUT I DON'T SEE THAT SHE HAS RECIEVED ANY SINCE SHE GOT HERE. DR. SKINNER FROM ANESTHESIA MADE AWARE.
[2024-07-14] MEDS: Lidocaine 1% (20 ml mdv) 20 ML Vial (15:26)
[2024-07-14] MEDS: Bupivacaine Mpf 0.5% 30 ML VIAL OPERA.SITE (15:26)
--- NOTE | 2024-07-14 15:31 | SUR.PREOP ---
PATIENT HAS CRACKLES IN BILATERAL BASES ANTERIORLY. ANESTHESIA AWARE.
--- NOTE | 2024-07-14 15:34 | PRE.ANES_ITS ---
ASA Classification* ASA Classification ASA Classification: 4 Assessment & Plan Anesthesia* Anesthesia Assessment Anesthesia Assessment: Discussed sedation and/or anesthesia options, risks, benefits, and alternatives with patient/parents/legal guardian/POA. Questions invited. The patient/parents/legal guardian/POA seems to understand and agrees to proceed with anesthesia plan. Reviewed the physical assessment, medical history, allergy history and patient home medications list prior to surgery/procedure/anesthetic and documented any changes. Performed airway and anesthesia risk assessments. Anesthesia Type Anesthesia Type: MAC History Source History Obtained from:: Patient and Chart Anesthesia Focused Assessment* Temperature: 97.4 F Pulse Rate: 63 Blood Pressure: 160/69 Respiratory Rate: 24 Pulse Ox: 100 Oxygen Delivery Method: Nasal Cannula Airway Assessment Mouth opens: >3 cm Mallampati Score: IV Teeth Condition: Chipped/Broken (Patient has a couple chipped teeth) and Missing (Patient has multiple missing teeth.) Neck Range of motion (ROM): Limited ROM Focused Labs Anesthesia Preop lab: CBC WBC 8.6 K/mm3 (4.4-11.0) 07/14/24 06:23 RBC 3.35 M/mm3 (4.2-5.4) L 07/14/24 06:23 Hgb 8.3 g/dL (12.0-15.0) L 07/14/24 06:23 Hct 27.2 % (37-47) L 07/14/24 06:23 Plt Count 302 K/mm3 (150-450) 07/14/24 06:23 CHEMISTRY Potassium 4.3 mmol/L (3.5-5.1) 07/14/24 06:23 Sodium 140 mmol/L (136-145) 07/14/24 06:23 Magnesium 2.3 mg/dL (1.6-2.6) 07/13/24 13:45 Phosphorus 3.8 mg/dL (2.5-4.9) 07/13/24 13:45 BUN 46 mg/dL (7-18) H 07/14/24 06:23 Creatinine 1.81 mg/dL (0.55-1.02) H 07/14/24 06:23 Glucose 106 mg/dL (74-106) 07/14/24 06:23 POC Glucose 160 mg/dL (74-106) H 07/14/24 11:59 TSH 4.15 uIU/mL (0.358-3.74) H 06/17/23 16:00 COAG PT 16.1 SECONDS (11.7-14.9) H 02/23/22 05:01 Pre-Assessment Diagnosis/Proposed Procedure Planned Operative Procedure(s): Bilateral fifth metatarsal head excision with debridement of ulcer on bilateral feet and application of advanced wound product Anesthesia History Anesthesia History - family preservation caseworker: Anesthesia History - family preservation caseworker Hx Hospitalization No 09/27/13 23:52 Any Problems With Anesthesia No 07/14/24 10:59 Cholinesterase deficiency No 02/23/22 05:50 You/Your Family Experience No 07/14/24 10:59 fever (hyperthermia) with Relationship Recent Exposure to Contagious No 07/14/24 10:59 Disease Does patient have nerve No 07/14/24 10:59 stimulator Patient instructed to have device shut off --Does patient have Pacemaker No 07/14/24 10:59 or ICD? When Was Last Pacemaker Check QUESTION #4 FULL TEXT: You/Your Family Experience fever (hyperthermia) with Anesthesia Last Oral Intake Last Oral intake: Last Oral Intake NPO since 08:00 07/14/24 10:59 Meds taken in AM with sips of water? Meds patient instructed to take am of surgery PONV PONV - family preservation caseworker: PONV - family preservation caseworker Female HX of Motion Sickness HX of N/V After Surgery Non-Smoker Duration of Surgery greater than 60 minutes Number of Risk Factors PONV Score Height & Weight Height & Weight: Anesthesia: Height & Weight Height 5 ft 6 in 07/14/24 14:12 Weight: 123.4 kg 07/14/24 14:12 Body Mass Index (BMI) 43.7 07/14/24 06:00 Respiratory Assessment Respiratory Assessment - family preservation caseworker: Respiratory Tract Infection Hx - family preservation caseworker Hx Respiratory Tract Infection No 07/14/24 10:59 STOP Sleep Apnea STOP Sleep Apnea - family preservation caseworker: STOP Sleep Apnea - family preservation caseworker Hx Hypertension Yes 07/13/24 17:35 Hx Sleep Apnea No 07/13/24 17:35 CPAP No 07/13/24 17:35 BIPAP No 07/13/24 17:35 Do you snore loudly (louder No 07/13/24 17:35 than talking or can be heard Do you often feel tired/ Yes 07/13/24 17:35 fatigued/ sleepy during daytime? Has anyone observed you stop No 07/13/24 17:35 breathing during sleep? STOP Results Positive 07/13/24 17:35 QUESTION #5 FULL TEXT : Do you snore loudly (louder than talking or can be heard through closed doors)? Tobacco Use History Tobacco Use History - family preservation caseworker: Tobacco Use History - family preservation caseworker Tobacco Use Smoking Status Former smoker 07/13/24 17:35 Hx Tobacco Use No 07/13/24 17:35 Years Smoking Packs Smoked per Day Smoking Cessation Date was Yes - quit smoking within 15 07/13/24 17:35 within the last 15 years years Hx Smoking Cessation Date 09/27/89 07/13/24 17:35 Hx Smoking Cessation No 07/13/24 17:35 Counseling Hematologic Medial History Hematologic Hx - family preservation caseworker: Hematologic Medical Hx - business continuity coordinator Hx of Blood Transfusion Yes 07/13/24 17:35 Hx of Transfusion in last 3 No 07/13/24 17:35 Months Date of Last Transfusion (if within last 3 months) Ever experience any problems No 07/13/24 17:35 with transfusion(s)? Specify any problems Hx of Preganancy in last 3 N/A 07/13/24 17:35 Months Nurse Filling Out Transfusion RVIZZO 07/13/24 17:35 & Questions: Date: 07/13/24 07/13/24 17:35 Time: 17:46 07/13/24 17:35 Patient unable to answer at this time (ie. confused, unrespo /Reproduction History /Reproductive History - family preservation caseworker: /Reproductive Hx- family preservation caseworker Hx Now Gestational Age (in weeks): EDC: Hx Hx Para Hx Section SAB No 02/23/22 05:50 Active Medications Active Medications: Current Medications Generic Name Dose Route Start Last Admin Trade Name Freq PRN Reason Stop Dose Admin Acetaminophen 650 mg 07/13/24 17:33 Acetaminophen 325 Mg Tablet PO Q6H PRN PRN Pain 1-10 Or Fever >100.7 Aspirin 81 mg 07/14/24 10:00 07/14/24 10:11 Aspirin E.C. 81 Mg Tablet PO Not Given DAILY PARMINDER Atorvastatin Calcium 40 mg 07/13/24 22:00 10/17/24 21:46 Atorvastatin Calcium 40 Mg Tablet PO 40 mg QHS PARMINDER Administration Carvedilol 25 mg 07/13/24 22:00 07/14/24 10:11 Carvedilol 25 Mg Tablet PO 25 mg BID PARMINDER Administration Protocol Enoxaparin Sodium 40 mg 07/14/24 10:00 07/14/24 10:12 Enoxaparin 40 Mg/0.4 Ml Syringe SC Not Given Q24 [facility] Glucagon 1 mg 07/13/24 17:33 Glucagon 1 Mg/Ml Syringe IM X1 PRN Hypoglycemia Protocol Vancomycin IV-PHARMACY TO DOSE 500 mls @ 250 mls/hr 07/13/24 17:33 1 each/ Sodium Chloride IV PRN PRN RX TO DOSE Protocol Piperacillin Sod/Tazobactam 50 mls @ 12.5 mls/hr 07/13/24 17:33 07/14/24 12:09 Sod 3.375 gm/ Sodium Chloride IV Infused Q8 [facility] Infusion Dextrose 250 mls @ 0 mls/hr 07/13/24 17:33 Dextrose 10%-Water IV .Q0M PRN HYPOGLYCEMIA Protocol As Directed Vancomycin HCl 500 mg in 100 mls @ 100 mls/hr 07/14/24 02:00 07/14/24 11:01 IV 100 mls/hr Q8H [facility] Administration Insulin Human Lispro 0 unit 07/13/24 17:33 07/14/24 12:08 Insulin Lispro 100 Unit/Ml Insuln.Pen SC Not Given ACHS [facility] Protocol Nitroglycerin 0.4 mg 07/13/24 17:33 Nitroglycerin (Inpatient Use) 0.4 Mg Tab.Subl SL Q5M PRN CARDIAC/CHEST PAIN Ondansetron HCl 4 mg 07/13/24 17:33 Ondansetron 4 Mg/2 Ml Vial IV Q8H PRN PRN NAUSEA/VOMITING Oxycodone HCl 2.5 - 5 mg 07/13/24 17:33 Oxycodone 5 Mg Tablet PO Q4H PRN PRN Pain Score 4-10 Senna/Docusate Sodium 2 tablet 07/13/24 22:00 07/14/24 10:12 Senna/Docusate Sodium 1 Tablet PO Not Given BID [facility] Sodium Chloride 10 - 40 ml 07/13/24 17:44 0.9% Saline Lock 10 Ml Syringe IV UD PRN SALINE FLUSH Vancomycin Protocol 1 lab 07/14/24 15:30 Vancomycin Trough/Random Due MC 07/15/24 19:30 DAILY [facility] PFSH Medical History Dyspnea Ischemic cardiomyopathy History of CVA (cerebrovascular accident) Atherosclerosis of coronary artery without angina pectoris Type 2 diabetes mellitus Secondary pulmonary arterial hypertension Chronic combined systolic and diastolic CHF (congestive heart failure) Essential hypertension Obesity Chronic kidney disease (CKD) GI bleed (01/2022) Anemia Diabetes mellitus type 2 in obese Hyperlipidemia Home Medications ?Medication ?Instructions ?Recorded ?Last Taken ?Type atorvastatin 40 mg tablet 40 mg PO QHS CHOLESTEROL 02/22/22 Unknown History valsartan 160 mg tablet 160 mg PO DAILY BLOOD PRESSURE 02/22/22 Unknown History aspirin 81 mg tablet,delayed 81 mg PO DAILY HEART HEALTH 06/03/22 Unknown History release (Adult Aspirin Regimen) carvedilol 25 mg tablet 25 mg PO BID HEART #180 tabs 07/12/24 Unknown Rx dapagliflozin propanediol 10 mg 10 mg PO DAILY DIABETES #90 tabs 07/12/24 Unknown Rx tablet (Farxiga) furosemide 40 mg tablet 80 mg PO DAILY EDEMA 07/12/24 Unknown History insulin detemir U-100 100 unit/mL 60 unit subcut BREAKFAST 07/12/24 Unknown History (3 mL) subcutaneous pen (Levemir FlexTouch U-100 Insulin) blood sugar diagnostic (Accu-Chek 07/13/24 Unknown History Alvina Plus test strips) ciprofloxacin HCl 500 mg tablet 500 mg PO BID ANTIBIOTIC 07/13/24 Unknown History doxycycline hyclate 100 mg tablet 100 mg PO BID ANTIBIOTIC 07/13/24 Unknown History fluoxetine 10 mg capsule 10 mg PO DAILY 07/13/24 Unknown History insulin lispro 100 unit/mL 25 unit subcut ACHS 07/13/24 Unknown History subcutaneous pen (Humalog KwikPen (U-100) Insulin) metolazone 5 mg tablet 5 mg PO DAILY 07/13/24 Unknown History Allergy/AdvReac Type Severity Reaction Status Date / Time No Known Allergies Allergy Verified 07/13/24 12:39 Family History Father Diabetes Heart disease CAD (coronary artery disease) Mother Heart disease Surgical History History of coronary artery stent placement (09/2013) H/O vein stripping Status post angioplasty with stent Social History household members: family Smoking Status: Former smoker how long ago did patient quit smokin years ago alcohol intake: never substance use type: does not use caffeine: Yes Review of Systems (Anesthesia) ROS Narrative System reviewed and no additional complaints, except as documented.
--- NOTE | 2024-07-14 15:34 | RAD_ITS ---
EXAM: FL FLUOROSCOPY < 1 HOUR CLINICAL INDICATION: BILAT WOUND CARE- DEBRIDEMENT OF ULCERATION, 5TH MT HEAD REMOVAL TECHNIQUE: Fluoroscopic images performed in multiple projections. Fluoroscopic guidance was provided by a physician. 5 fluoroscopic images with a total exposure time of 12 seconds and a total dose of 0.684 mGy. COMPARISON: Subsequent right foot radiographs on the same date. FINDINGS AND RAD/Foot min 3 Views IMPRESSION: 5 intraoperative fluoroscopic images for partial resection of the fifth metatarsal. Refer to the operative note for complete details. Electronically Signed: Eliseo Winchester DO at 20:31 EDT ,
[2024-07-14 15:37] LABS: Bedside Glucose 155 mg/dL (74-106)
[2024-07-14] MEDS: Furosemide 40 MG/4 ML Vial IV (15:40)
[2024-07-14] MEDS: Vancomycin IV 1,000 MG/20 ML Vial 1000 MG OPERA.SITE (16:46)
--- NOTE | 2024-07-14 17:45 | PCM.POST.ANE ---
Anesthesia: Postop Eval I Current Vital Signs Temperature: 97.1 F Pulse Rate: 76 Blood Pressure: 134/74 Respiratory Rate: 16 Pulse Ox: 94 Oxygen Delivery Method: Nasal Cannula Oxygen Flow Rate (L/min): 2 Assessment Airway patent: Yes Spontaneous unlabored respirations: Yes Mental status: Awake and Calm nausea: No Vomiting: No Anesthesia Complication: No Fluid Hydration Crystalloid volume administer (ml): 0 Total IV fluid infused: 0 Progress Note Anesthesia document: Postop Eval 1 completed: Yes
[2024-07-14 18:25] LABS: Vancomycin, Trough Level 26.6 ug/mL (5.0-15.0)
--- NOTE | 2024-07-14 18:29 | NURSING ---
Patient returns from surgery at 1800. Tolerated well. Missed 1400 Zozyn. Pharmacy contacted and they report to hang 2200 Zosyn now.
--- NOTE | 2024-07-14 18:34 | PCM.RX.CS ---
Consult Antibiotic Management Pharmacy has been consulted to manage selected antibiotic: Vancomycin Type of Intervention Type of Consult: Follow-up Suspected Infection Suspected Infection: Skin/Soft tissue Labs Labs: Sodium 140 mmol/L (136-145) 07/14/24 06:23 Potassium 4.3 mmol/L (3.5-5.1) 07/14/24 06:23 Chloride 110 mmol/L (98-107) H 07/14/24 06:23 Carbon Dioxide 24.0 mmol/L (21.0-32.0) 07/14/24 06:23 Anion Gap 6 (5-15) 07/14/24 06:23 BUN 46 mg/dL (7-18) H 07/14/24 06:23 Creatinine 1.81 mg/dL (0.55-1.02) H 07/14/24 06:23 Est GFR (MDRD) Af Amer 35 mL/min (>60) L 07/14/24 06:23 Est GFR (MDRD) Non-Af 29 mL/min (>60) L 07/14/24 06:23 BUN/Creatinine Ratio 25.4 RATIO (10-20) H 07/14/24 06:23 Glucose 106 mg/dL (74-106) 07/14/24 06:23 Vancomycin Trough 26.6 ug/mL (5.0-15.0) H 07/14/24 18:00 Pharmacy Plan for Drug Dosing Pharmacy Plan for Drug Dosing: VANCOMYCIN LEVEL RECEIVED Current Vancomycin Dose: 500MG Q8 Number of Doses Received: 3 Vancomycin Level: 26.6 MG/DL Hours Since Last Dose: 7 Renal Function: SCR 1.81 MG/DL, CRCL 35 ML/MIN Renal Function Trend: slight improvement Lab/Micro: none Vancomycin Plan/Comments: 7 hour trough is supratherapeutic at 26.6 m/dl (goal 15-20). WIll hold dose at this time and get a random level in 12 hours. Of note, pt did have 1gm of vancomycin powder administered to foot wound in surgery today at 1646 which could have slightly skewed trough. Pending Level: 07/15/24 @ 0600 Pharmacy Service will continue to monitor and adjust dosing as required.
[2024-07-14] MEDS: 0.9% Saline Lock 10 ML Syringe IV (18:58)
--- NOTE | 2024-07-14 18:59 | PCM.OPRPT ---
Problems Associated Problem List Diagnoses (1) Non-pressure chronic ulcer of other part of right foot with necrosis of muscle: (2) Non-pressure chronic ulcer of other 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: (3) Cellulitis of foot, right: (4) Cellulitis of left lower limb: (5) Diabetes mellitus with diabetic polyneuropathy: (6) Type 2 diabetes mellitus with foot ulcer: (7) Diabetic infection of left foot: Report of Operation Date of Procedure: 07/14/24 Pre-Operative Diagnosis: 1. 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 Neuropathic pressure ulceration plantar fifth metatarsal head left foot with necrosis of muscle 3. Cellulitis right lower extremity 4. Cellulitis left lower extremity 5. Diabetes mellitus type 2 with peripheral polyneuropathy 6. Diabetes mellitus type 2 with bilateral foot ulceration 7. Diabetes mellitus type 2 with foot infection left foot Post-Operative Diagnosis: 1. 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 Neuropathic pressure ulceration plantar fifth metatarsal head left foot with necrosis of muscle 3. Cellulitis right lower extremity 4. Cellulitis left lower extremity 5. Diabetes mellitus type 2 with peripheral polyneuropathy 6. Diabetes mellitus type 2 with bilateral foot ulceration 7. Diabetes mellitus type 2 with foot infection left foot Surgery/Procedure Performed:: 1. Excision of fifth metatarsal head Right foot 2. Excision of fifth metatarsal head Left foot 3. Debridement of ulceration to the level of the muscle right foot 4. Debridement of ulceration to the level of muscle left foot 5. Application of advanced wound care product, Axiofill right foot Description of Surgical Findings:: See operative note for findings Surgeon: Paul Erwin principal java software engineer: Alexandru Culp DPM PGY-2 Type of Anesthesia: Local (20 cc one-to-one mixture of 1% lidocaine plain and 0.5% Marcaine plain) Specimen's removed: 5th metatarsal head Right foot and 5th metatarsal head Left foot Drains: None Estimated Blood Loss (mL): < 25mL Description of Procedure: HPI/indication patient is a 74-year-old female who presented to the [facility] by way of the wound care center on 07/13/2024 with bilateral subfifth metatarsal head ulceration secondary to neuropathic pressure status. Patient had been following in the wound care center for right foot ulceration duration of 4 weeks and prior to treatment in the wound center was treated in the office for 3 weeks. Had undergone serial debridements, LEAS, and venous studies, 6 weeks oral antibiotics, and application of EpiFix grafting of the right foot ulceration with preparation for HBO dive however despite improving there was breakdown centrally with some exposure of the fifth metatarsal head of the right foot. In addition to her right foot wound she developed a new neuropathic pressure ulceration with worsening onset/condition of the left foot. At that time I discussed with family that the new ulceration with worsening onset to the left foot would require hospitalization, IV antibiotics, and surgical intervention. Her son who aids in her care was in agreement with the plan for intervention. At that time patient did go to the [facility] and was admitted on 07/13/2024 and started on IV antibiotics. She remained n.p.o. overnight in anticipation of surgical intervention on 07/14/2024. Discussed with the patient and her son the plan for surgical intervention. The son and patient are in agreement with the procedure. Both son and patient are understanding that this is not a elective procedure but a limb salvage procedure to prevent worsening infection and more proximal amputation. The surgical plan was discussed in addition to typical postoperative course. Discussed the benefits of the procedure as well as the risks and complications. Patient is understanding the risks include but are not limited to the following: Pain, continued pain, complex regional pain syndrome, infection, dehiscence, need for further surgical intervention, edema, delayed healing/nonhealing, bleeding, neuritis/numbness, scarring, poor cosmetic result, phantom pain, transfer lesions, floating toe, contracted toe, blood clot, stroke, heart attack, difficulty wearing shoe gear, inability to wear shoe gear, loss of function, loss of limb, loss of life. Patient was able to repeat these back. Patient is willing to move forward with the surgical procedure/intervention. No promises were made. No guarantees were given. All questions were answered to the level of the patient and son satisfaction. Surgical consent was then signed by the patient. All diagnostic data was reviewed prior to entering the OR. Radiographs obtained 07/13/2024 of right and left foot were both negative for acute osteomyelitis. Operative limb was signed prior to entering the OR. She was scheduled to undergo bilateral fifth metatarsal head excision, debridement of bilateral foot ulcerations, with application of advanced wound care product right foot at [facility] on 07/14/2024. Procedure: Under mild sedation patient was brought into the operating room and remained in the hospital bed while seated upright secondary to dyspnea. Bilateral legs were bumped with a blanket bump. No tourniquet was applied to the right or left foot. Both right and left foot were scrubbed, prepped, and draped in the usual aseptic manner. A local anesthetic block was then performed about the left proximal fifth metatarsal utilizing 10 cc one-to-one mixture of 1% lidocaine plain and 0.5% Marcaine plain. An Esmarch bandage was then utilized for a mild tourniquet to the left lower extremity. Attention was then directed to the left foot where under guidance of fluoroscopy an incision was made overlying the fifth metatarsal head dorsally utilizing #15 blade. Incision was deepened via sharp and blunt dissection to the level of the fifth metatarsal head. Utilizing guidance of fluoroscopy the fifth metatarsal head was resected utilizing a sagittal saw. The fifth metatarsal head was sharply excised utilizing a #15 blade and passed from the operative field to the table in toto. Fifth metatarsal head was sent to pathology for analysis. During dissection and during excision of the metatarsal head there was no purulent drainage noted nor malodor to the left foot. There was no visible abscess was noted during dissection. Surrounding tissue appeared healthy with adequate bleeding. Postresection imaging was obtained via fluoroscopy. Next, the site was flushed with copious amounts of normal sterile saline. At this time attention was then directed to the plantar aspect of the left foot subfifth metatarsal head region where there was an ulceration noted with mixed granular and necrotic tissue and eschar. Ulceration underwent sharp excisional debridement utilizing a #15 blade to the level of muscle. 100% of the ulceration site was debrided and small bleeders were cauterized for hemostasis control. Debridement consisted of removal of fibrous, devitalized subcutaneous, necrotic eschar, biofilm, slough. It is noted that there was some communication from the eschar to the level of bone and thus ulceration classified as a Wyatt stage III. Predebridement measurement of left foot ulceration was 4.0 cm x 4.1 cm x 0.1 cm. Postdebridement measurement of left foot ulceration was 4.1 cm x 4.2 cm x 0.5 cm. Following debridement of the ulcerative site 0.5 g of vancomycin powder was placed plantarly in the tissue of the soft tissue ulceration and at the dorsal incision site. Dorsal incision site subcutaneous tissue was then closed utilizing 3-0 Monocryl. The skin was then reapproximated utilizing 3-0 Prolene in simple interrupted fashion. Esmarch bandage was removed and a prompt hyperemic response was noted to the digits of the left foot. The dorsal incision site was then dressed with Betadine soaked Adaptic 4 x 4 gauze, plantar ulceration dressed with 4 x 4 gauze, and ABD, foot was then dressed with Kerlix x 2 and a 4 inch Addy wrap rolled onto the left foot. Next, attention was directed to the right foot where a local anesthetic block was performed about the right proximal fifth metatarsal utilizing 10 cc one-to-one mixture of 1% lidocaine plain and 0.5% Marcaine plain. Esmarch bandage was then utilized for mild tourniquet to the right lower extremity. Next, under the guidance of fluoroscopy an incision was made overlying the fifth metatarsal head dorsally utilizing a #15 blade. Incision was deepened via sharp and blunt dissection to the level of the fifth metatarsal head. Utilizing guidance of fluoroscopy fifth metatarsal head was resected utilizing a sagittal saw. Fifth metatarsal head was sharply excised utilizing #15 blade passed from the operative field to the table in toto. Fifth metatarsal head was then sent to pathology for analysis. During dissection and during excision of the fifth metatarsal head there was no purulent drainage nor malodor noted to the right foot. There was no visible abscess formation noted during dissection. Surrounding tissues appeared healthy with adequate bleeding. Postresection imaging was obtained via fluoroscopy. Next, the site was flushed with copious amounts of normal sterile saline. Next, attention was directed to the plantar aspect of the right foot subfifth metatarsal head region where there was an ulceration noted with mixed fibrogranular tissue that did communicate with the previous exposed bone at the fifth metatarsal head classifying ulceration is a Wyatt stage III. Predebridement measurement 2.4 cm x 2.4 cm x 0.5 cm. Ulceration to the plantar aspect of the subfifth metatarsal head underwent sharp excisional debridement utilizing a dermal curette. 100% of the ulceration was debrided. Debridement consisted of removal of fibrous, devitalized subcutaneous, biofilm, slough. Postdebridement measurement 2.5 cm x 2.5 cm x 0.5 cm. Following debridement all tissue was healthy appearing with adequate soft tissue bleeding and no evidence of remaining necrosis. Next, 0.5 g of vancomycin powder was placed at the dorsal incision site and the deep tissues were closed utilizing 3-0 Monocryl. Subcutaneous tissue closed utilizing 3-0 Monocryl. Skin was then reapproximated utilizing 3-0 Prolene in simple interrupted fashion. Next, 500mg of the Axiofill was packed into the ulceration site and about the ulceration of the Right foot and dressed with Adaptic anchored with Steri-Strips. At this time the Esmarch bandage was removed and a prompt hyperemic response was noted to the digits of the right foot. Incision site dorsally was dressed with Betadine soaked Adaptic and 4 x 4 gauze. Plantar foot ulceration site dressed with 4 x 4 gauze and ABD. Kerlix was then applied x 2 to the right foot and then dressed with a 4 inch Addy wrap rolled on to the right foot. Patient tolerated the procedure and local anesthesia well and was transported to PACU with vital signs stable vascular status intact to the right and left foot. Patient will be returned to the floor once anesthesia protocol has been met and she will continue to receive IV antibiotic. Surgical dressings are to remain in place to right and left foot over the weekend. She is also to remain nonweightbearing to right and left lower extremity. However she may apply weight to the left heel for transfer purposes to wheelchair or bedside commode. She will also continue to elevate both feet at all times for postoperative edema control. I will reevaluate surgical sites and ulcerations on 07/17/2024. Grafts/Implants Used: 500 mg Axiofill right foot Complications None Admit VTE Documentation VTE Present on Admission: No VTE Mechan Device Prophylaxis: SCD's VTE Pharm Prophylaxis ordered?: No
--- NOTE | 2024-07-14 19:36 | PN_ITS ---
Subjective Subjective Patient was seen following surgical intervention and was awake and alert. States she is ready to eat. Denies pain during the procedure. She is thankful for her intervention. Objective Data Objective Data Vital Signs: Vital Signs Temp Pulse Resp BP Pulse Ox O2 Del Method O2 Flow Rate 97.0 F L 72 20 H 141/50 H 94 Nasal Cannula 2 07/14/24 17:55 07/14/24 17:55 07/14/24 17:55 07/14/24 17:55 07/14/24 17:55 07/14/24 17:55 07/14/24 17:55 Oxygen Flow Rate (L/min) 2 Oxygen Delivery Method Nasal Cannula Weight: 123.4 kg Body Mass Index (BMI) 43.7 Intake & Output: Intake and Output for Last 24 Hours 07/12/24 07/13/24 07/14/24 23:59 23:59 23:59 Intake Total 665 / 665 420 / 420 Output Total 450 / 450 1300 / 1300 Balance 215 / 215 -880 / -880 Lab / Micro Data 07/14/24 06:23 07/14/24 06:23 Labs: Laboratory Results - last 24 hr 07/13/24 21:45: POC Glucose 117 H 07/14/24 06:20: POC Glucose 103 07/14/24 06:23: WBC 8.6, RBC 3.35 L, Hgb 8.3 L, Hct 27.2 L, MCV 81.2, MCH 24.8 L , MCHC 30.5 L, RDW Std Deviation 43.5, RDW Coeff of Bulmaro 14.7 H, Plt Count 302, MPV 9.9, Immature Gran % (Auto) 0.500, Neut % (Auto) 74.8 H, Lymph % (Auto) 13.0 L, [place] % (Auto) 9.2, Eos % (Auto) 1.9, Baso % (Auto) 0.6, Absolute Neuts (auto) 6.4, Absolute Lymphs (auto) 1.12, Nucleated RBC % 0, Sodium 140, Potassium 4.3, Chloride 110 H, Carbon Dioxide 24.0, Anion Gap 6, BUN 46 H, Creatinine 1.81 H, Estim Creat Clear Calc 35.46, Est GFR (MDRD) Af Amer 35 L, Est GFR (MDRD) Non-Af 29 L, BUN/Creatinine Ratio 25.4 H, Glucose 106, Hemoglobin A1c 6.0 H, Calcium 9.1 07/14/24 11:59: POC Glucose 160 H 07/14/24 15:18: POC Glucose 155 H 07/14/24 18:00: Vancomycin Trough 26.6 H Physical Exam Const alert, oriented x3 and no apparent distress General Appearance: cooperative Nutritional Appearance: morbidly obese HEENT normocephalic Eyes General Eye: normal appearance of both eyes Neck General: normal visual inspection Lymph Lymphatic: no lymphadenopathy noted and no lymphedema noted Resp Resp Narrative: Diminished with bilateral chronic wheezing. Cardio regular rate and regular rhythm Extremity Extremity Narrative: Vascular: DP and PT pulses weakly palpable. CFT is less than 5 seconds to the digits. Temperature gradient is normal. Hair growth is absent to the digits. There is chronic rubor/erythema secondary to chronic venous stasis changes and trophic changes of the lower extremity with overlying chronic xerotic skin flaking. Neurologic: Light touch sensation diminished. Protective sensation is absent secondary to diabetic peripheral polyneuropathy. Gross sensation is intact. Musculoskeletal: Muscle strength 4 of 5 due to generalized weakness as patient does not ambulate much. Does ambulate with the assistance of walker. There is decreased range of motion of the ankle joint dorsiflexion with the knee extended without pain or crepitus. No calf pain to palpation. Decreased range of motion of the STJ, MTJ, and first MTPJ without pain or crepitus. No pain to palpation about the ulcerative sites subfifth metatarsal head bilateral foot. Dermatologic: Bilateral lower extremity demonstrates edema and chronic venous stasis changes with dermatitis. There is a full-thickness ulceration noted to the plantar lateral aspect of the fifth metatarsal head of the right foot. Ulceration does demonstrate some exposure of the plantar aspect of the fifth metatarsal head with surrounding healthy granular tissue. Ulceration measures 2.5 cm x 2.5 cm x 0.5 cm. There is mild erythema dorsally of the foot. No palpable fluctuance/bogginess noted, no purulent drainage, no soft tissue crepitus. Left foot demonstrates new ulceration subfifth metatarsal head with some granular tissue and necrotic eschar. There is serosanguineous drainage and some palpable fluctuance about the eschar. Ulceration measures 4.0 x 4.1 x 0.1 localized erythema about the ulceration and dorsal foot. No purulent drainage is noted. Postsurgical intervention: Sutures intact overlying the fifth metatarsal head of the left foot. Left plantar ulceration was dressed with vancomycin powder and dry sterile dressing. Left foot ulceration postdebridement measures 4.1 cm x 4.2 cm x 0.5 cm. Surgical dressings remain intact to the left foot. Right foot demonstrates intact sutures overlying the fifth metatarsal head with advanced wound care product/graft in place to the plantar aspect of the right foot. Right foot ulceration postdebridement measures 2.5 cm x 2.5 cm x 0.5 cm. Surgical dressings remain intact. Skin no rashes or lesions noted Neuro moves all extremities Assessment & Plan Assessment/Plan (1) Non-pressure chronic ulcer of other part of right foot with necrosis of muscle: (2) Non-pressure chronic ulcer of other 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: (3) Cellulitis of foot, right: (4) Cellulitis of left lower limb: (5) Diabetes mellitus with diabetic polyneuropathy: (6) Type 2 diabetes mellitus with foot ulcer: (7) Diabetic infection of left foot: PLAN: Plan Patient seen and evaluated She is s/p excision of the fifth metatarsal head right foot and left foot, debridement of ulceration to the level of the muscle right foot and left foot, and application of advanced wound care product to the right foot ulceration. DOS 07/14/2024. Postsurgical intervention: Sutures intact overlying the fifth metatarsal head of the left foot. Left plantar ulceration was dressed with vancomycin powder and dry sterile dressing. Left foot ulceration postdebridement measures 4.1 cm x 4.2 cm x 0.5 cm. Surgical dressings remain intact to the left foot. Right foot demonstrates intact sutures overlying the fifth metatarsal head with advanced wound care product/graft in place to the plantar aspect of the right foot. Right foot ulceration postdebridement measures 2.5 cm x 2.5 cm x 0.5 cm. Surgical dressings remain intact. WBC 8.6, HgbA1c 6.0% on 07/14/24, Hgb 8.3, Hct 27.2, Glucose 106, BUN 46, Cr 1.81 Currently on IV Vanco/Zosyn Surgical dressings remain intact. Do not change dressing, leave dressing intact over weekend and undisturbed. May reinforce dressing for strikethrough. Wound nurse will assist in dressing change 07/17/2024 Medicine currently following for medical management, they are greatly appreciated ID consulted for antibiotic management Vascular consulted Wound nurse following for assistance in dressing changes She will remain nonweightbearing to the right foot and left foot. She may place weight to the left heel and right heel for transfer purposes to bedside commode or to wheelchair. She will continue to elevate both lower extremities for postoperative edema control Will need SNF placement for assistance in her care and recovery postoperatively. Son was in agreement with this when discussed. Discussed upon placement to SNF she will still follow with me in the wound care center for continued debridement and application of advanced wound care products to heal bilateral plantar foot ulcerations. Dr. Erwin will reevaluate and change dressing on 07/17/2024. Jr. Wade Hewitt.P.M. [facility] [phone]
--- NOTE | 2024-07-14 20:00 | RAD_ITS ---
STUDY: X-RAY - LEFT FOOT CLINICAL: Female, 74 years old. POST OP TECHNIQUE: 3 view(s) of the foot. COMPARISON: None. FINDINGS: Normal talus,, and tarsal bones. Small plantar calcaneal spur and posterior enthesophyte Normal visualized subtalar, talonavicular, calcaneocuboid, tarsal and tarsometatarsal articulations. Postop changes status post resection of the distal fifth metatarsal shaft Normal metatarsophalangeal joint of the great toe. Normal tibial and fibular sesamoid bones. Normal interphalangeal joint of the great toe. Normal phalanges of the great toe. Normal second through fifth metatarsophalangeal joints. Normal interphalangeal joints and phalanges of the lesser toes. Soft tissue swelling at the operative site.. RAD/Foot min 3 Views IMPRESSION: Postop changes status post resection of the distal fifth metatarsal shaft Electronically Signed: Ye Hutson MD at 20:44 EDT ,
--- NOTE | 2024-07-14 20:00 | RAD_ITS ---
STUDY: X-RAY - RIGHT FOOT CLINICAL: Female, 74 years old. Post-op 5th met head excision TECHNIQUE: 3 view(s) of the foot. COMPARISON: None. FINDINGS: Normal talus,, and tarsal bones. Small plantar calcaneal spur and posterior enthesophyte Normal visualized subtalar,, calcaneocuboid, tarsal and tarsometatarsal articulations. Mild talonavicular spurring Postsurgical changes status post resection of the mid to distal fifth metatarsal. Normal metatarsophalangeal joint of the great toe. Normal tibial and fibular sesamoid bones. Normal interphalangeal joint of the great toe. Normal phalanges of the great toe. Normal second through fifth metatarsophalangeal joints. Normal interphalangeal joints and phalanges of the lesser toes. Diffuse soft tissue swelling at the operative site.. RAD/Foot min 3 Views IMPRESSION: Postop change status post resection of the mid to distal fifth metatarsal shaft Electronically Signed: Ye Hutson MD at 20:43 EDT ,
[2024-07-14 20:22] LABS: Bedside Glucose 168 mg/dL (74-106)
[2024-07-14] MEDS: Atorvastatin Calcium 40 MG Tablet PO (21:32)
[2024-07-14 22:00] LABS: Bedside Glucose 195 mg/dL (74-106)
[2024-07-15 05:00] VITALS: BP 157/63; PULSE 72; RESP 18; TEMP 36.4; O2SAT 94
[2024-07-15] MEDS: Piperacil/Tazobactam 3.375 GM in 0.9% Normal Saline (50mL MB+) 50 ML IV ×3 (05:21→22:24)
[2024-07-15 05:52] VITALS: BMI 43.0
[2024-07-15 05:56] LABS: Bedside Glucose 157 mg/dL (74-106)
[2024-07-15 06:42] LABS: Absolute Neutrophil Count 6.5 X10^3/uL (2.0-7.7); Basophil# 0.07 X10^3/uL; Basophil% 0.9 % (0-1); Eosinophil# 0.08 X10^3/uL; Hematocrit 27.4 % (37-47); Hemoglobin 8.1 g/dL (12.0-15.0); Lymphocyte % 9.7 % (19-41); Mean Corp Hgb Conc 29.6 g/dL (32-36); Mean Corpuscular Hgb 24.4 pg (27.0-32.0); Mean Corpuscular Volume 82.5 fL (81-99); Mean Platelet Vol. 9.9 fl (6.2-12.0); Monocyte# 0.78 X10^3/uL; Monocyte% 9.5 % (0-10); NRBC Flagged by Analyzer 0 % (0-5); Neutrophil # 6.45 X10^3/uL (2.7-7.7); Neutrophil % 78.5 % (47-70); Platelet Count 290 K/mm3 (150-450); RBC Distribution Width CV 14.8 % (11.6-14.6); RBC Distribution Width SD 44.9 fl (35.1-43.9); Red Blood Count 3.32 M/mm3 (4.2-5.4); White Blood Count 8.2 K/mm3 (4.4-11.0)
[2024-07-15 06:43] LABS: Anion Gap 5 (5-15); BUN 46 mg/dL (7-18); BUN/Creat Ratio 23.1 RATIO (10-20); Chloride 107 mmol/L (98-107); Creatinine, Serum 1.99 mg/dL (0.55-1.02); EST Glomerular Filtration Rate 26 mL/min (>60); Est Glom Filt Rate - Afr Amer 31 mL/min (>60); Estimated Creatinine Clearance 31.95 ml/min; Glucose 170 mg/dL (74-106); Potassium 4.7 mmol/L (3.5-5.1); Sodium Level 139 mmol/L (136-145)
[2024-07-15 06:47] LABS: Vancomycin, Random Level 24.2 ug/mL (0.0-15.0)
--- NOTE | 2024-07-15 06:59 | PCM.RX.CS ---
Consult Antibiotic Management Pharmacy has been consulted to manage selected antibiotic: Vancomycin Type of Intervention Type of Consult: Follow-up Labs Labs: Sodium 139 mmol/L (136-145) 07/15/24 06:05 Potassium 4.7 mmol/L (3.5-5.1) 07/15/24 06:05 Chloride 107 mmol/L (98-107) 07/15/24 06:05 Carbon Dioxide 27.0 mmol/L (21.0-32.0) 07/15/24 06:05 Anion Gap 5 (5-15) 07/15/24 06:05 BUN 46 mg/dL (7-18) H 07/15/24 06:05 Creatinine 1.99 mg/dL (0.55-1.02) H 07/15/24 06:05 Est GFR (MDRD) Af Amer 31 mL/min (>60) L 07/15/24 06:05 Est GFR (MDRD) Non-Af 26 mL/min (>60) L 07/15/24 06:05 BUN/Creatinine Ratio 23.1 RATIO (10-20) H 07/15/24 06:05 Glucose 170 mg/dL (74-106) H 07/15/24 06:05 Vancomycin Trough 26.6 ug/mL (5.0-15.0) H 07/14/24 18:00 Random Vancomycin 24.2 ug/mL (0.0-15.0) H 07/15/24 06:05 Pharmacy Plan for Drug Dosing Pharmacy Plan for Drug Dosing: Pharmacy Service will continue to monitor and adjust dosing as required. RANDOM LEVEL 24.2. REDRAW RANDOM LEVEL IN 12 HOURS Follow-Up Labs Follow-Up Labs: Trough: Vancomycin Date/Time Labs Ordered Labs to be done on [date and time ordered]: 07/15 @ 1800
[2024-07-15 09:01] VITALS: BP 140/57; PULSE 72; RESP 18; TEMP 36.3; O2SAT 95
[2024-07-15] MEDS: Menthol/Lanolin/Calamine/Znox 113 GM Tube 1 APPLIC TOPICAL ×2 (09:13→22:26)
[2024-07-15] MEDS: Nystatin Powder 15gm Bottle 1 APPLIC TOPICAL ×2 (09:13→22:27)
[2024-07-15] MEDS: Carvedilol 25 MG Tablet PO ×2 (09:14→22:27)
[2024-07-15] MEDS: Aspirin E.C. 81 MG Tablet PO (09:14)
[2024-07-15] MEDS: Enoxaparin 40 MG/0.4 ML Syringe SC (09:14)
[2024-07-15 12:11] LABS: Bedside Glucose 274 mg/dL (74-106)
--- NOTE | 2024-07-15 13:41 | PN_ITS ---
Subjective Subjective Patient seen and examined. She felt well and had no complaints. Review of symptoms otherwise negative. She has remained hemodynamically stable. She had excision of left foot fifth metatarsal head with removal of ulceration to the level of the muscle of the right and left foot and application of advanced wound care products. Today's postop day 1. Pain is well-controlled. Review of symptoms otherwise negative. Objective Data Objective Data Vital Signs: Vital Signs Temp Pulse Resp BP Pulse Ox O2 Del Method O2 Flow Rate 97.4 F L 72 18 140/57 H 95 Room Air 2 07/15/24 09:01 07/15/24 09:01 07/15/24 09:01 07/15/24 09:01 07/15/24 09:01 07/15/24 09:04 07/14/24 17:55 Oxygen Flow Rate (L/min) 2 Oxygen Delivery Method Room Air Weight: 267 lb 10.259 oz Body Mass Index (BMI) 43.0 Intake & Output: Intake and Output for Last 24 Hours 07/13/24 07/14/24 07/15/24 23:59 23:59 23:59 Intake Total 665 / 665 520 / 520 150 / 150 Output Total 450 / 450 1999 / 1999 Balance 215 / 215 -1480 / -1480 150 / 150 Lab / Micro Data 07/15/24 06:05 07/15/24 06:05 Labs: Laboratory Results - last 24 hr 07/14/24 15:18: POC Glucose 155 H 07/14/24 18:00: Vancomycin Trough 26.6 H 07/14/24 19:07: POC Glucose 168 H 07/14/24 21:31: POC Glucose 195 H 07/15/24 05:20: POC Glucose 157 H 07/15/24 06:05: WBC 8.2, RBC 3.32 L, Hgb 8.1 L, Hct 27.4 L, MCV 82.5, MCH 24.4 L , MCHC 29.6 L, RDW Std Deviation 44.9 H, RDW Coeff of Bulmaro 14.8 H, Plt Count 290, MPV 9.9, Immature Gran % (Auto) 0.400, Neut % (Auto) 78.5 H, Lymph % (Auto) 9.7 L, [place] % (Auto) 9.5, Eos % (Auto) 1.0, Baso % (Auto) 0.9, Absolute Neuts (auto) 6.5, Absolute Lymphs (auto) 0.80 L, Nucleated RBC % 0, Sodium 139, Potassium 4.7, Chloride 107, Carbon Dioxide 27.0, Anion Gap 5, BUN 46 H, Creatinine 1.99 H , Estim Creat Clear Calc 31.95, Est GFR (MDRD) Af Amer 31 L, Est GFR (MDRD) Non- Af 26 L, BUN/Creatinine Ratio 23.1 H, Glucose 170 H, Calcium 9.0, Random Vancomycin 24.2 H 07/15/24 11:37: POC Glucose 274 H Radiography Diagnostic Testing: Radiology Impression Foot X-Ray 07/14/24 15:34 IMPRESSION: 5 intraoperative fluoroscopic images for partial resection of the fifth metatarsal. Refer to the operative note for complete details. Electronically Signed: Eliseo Winchester DO at 20:31 EDT , Foot X-Ray 07/14/24 20:00 IMPRESSION: Postop change status post resection of the mid to distal fifth metatarsal shaft Electronically Signed: Ye Hutson MD at 20:43 EDT , Foot X-Ray 07/14/24 20:00 IMPRESSION: Postop changes status post resection of the distal fifth metatarsal shaft Electronically Signed: Ye Hutson MD at 20:44 EDT , Physical Exam Const alert, oriented x3, no apparent distress and well nourished Constitutional Narrative: morbidly obese General Appearance: cooperative HEENT normocephalic, head/scalp atraumatic, moist oral mucous membranes and oropharynx normal Eyes PERRL and EOMs intact bilaterally Neck no lymphadenopathy and supple Lymph Lymphatic: no lymphadenopathy noted and no lymphedema noted Resp normal respiratory effort, normal air movement and clear to auscultation bilaterally Resp Narrative: on room air. Cardio regular rate, regular rhythm, S1 normal heart sound, S2 normal heart sound and no murmurs GI normal to inspection, nondistended, normoactive bowel sounds, soft to palpation, non-tender and non-distended Extremity Extremity Narrative: both lower extremities wrapped in bandage. Skin Skin Narrative: both lower extremities wrapped in bandage. Neuro CN's II-XII intact bilaterally, no focal motor deficits, no sensory deficits noted and deep tendon reflexes 2+ bilaterally Motor Exam: strength 5/5 throughout Psych thought process normal and cooperative Appearance: appropriate Assessment & Plan Assessment/Plan (1) Cellulitis of left lower limb: (2) Non-pressure chronic ulcer of other 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: PLAN: Plan #Bilateral diabetic foot ulcer * Failed outpatient therapy. She had been following up at the wound center and had been on oral antibiotics. However her wounds were not improving. * Sent into the ED from the wound center. Currently on IV vancomycin and Zosyn * Podiatry on board. Had excision of fifth left foot metatarsal head and debridement of ulceration to the level of the muscle of the right foot and debridement of ulceration to the muscle of the left foot * today is POD 1. * cultures pending. continue current antibiotics * #Type 2 diabetes mellitus: * Will cut down lantus to 40 units daily due to A1C being only 6. * on dapagliflozin also. * Accuchecks ACHS * A1C is 6. * #Combined heart failure: * Not in exacerbation. Continue diuresis. * Breathing treatments bronchodilators. * On valsartan and carvedilol as well as Lasix and metolazone #Benign essential hypertension: On valsartan and carvedilol #Anemia: Hemoglobin is 8.1 with a baseline of around 8-9. Will monitor closely. May be related to chronic kidney disease also. #CKD stage IV: Cr remains at baseline. Will monitor. #Hyperlipidemia: On statin #History of CAD with ischemic cardiomyopathy #History of CVA: on aspirin and statin. DVT prophylaxis: lovenox Charges/Coding Visit Charges Inpatient E&M: 03743 Subs Hosp L2
[2024-07-15] MEDS: Insulin Lispro 100 UNIT/ML INSULN.PEN SC ×3 (14:14→22:25)
--- NOTE | 2024-07-15 14:39 | CASEMGMT ---
Social Work- Pt requests referral to [facility]. Pt had therapy today and was unable to stand d/t NWB status. Referral completed. ROSE Hein
[2024-07-15 17:00] VITALS: PULSE 77; RESP 18; O2SAT 95
[2024-07-15 17:12] LABS: Bedside Glucose 314 mg/dL (74-106)
[2024-07-15 18:38] LABS: Vancomycin, Random Level 20.6 ug/mL (0.0-15.0)
[2024-07-15 20:25] VITALS: BP 158/68; PULSE 77; RESP 18; TEMP 36.6; O2SAT 97
--- NOTE | 2024-07-15 20:36 | PCM.RX.CS ---
Consult Antibiotic Management Pharmacy has been consulted to manage selected antibiotic: Vancomycin Type of Intervention Type of Consult: Follow-up Labs Labs: Sodium 139 mmol/L (136-145) 07/15/24 06:05 Potassium 4.7 mmol/L (3.5-5.1) 07/15/24 06:05 Chloride 107 mmol/L (98-107) 07/15/24 06:05 Carbon Dioxide 27.0 mmol/L (21.0-32.0) 07/15/24 06:05 Anion Gap 5 (5-15) 07/15/24 06:05 BUN 46 mg/dL (7-18) H 07/15/24 06:05 Creatinine 1.99 mg/dL (0.55-1.02) H 07/15/24 06:05 Est GFR (MDRD) Af Amer 31 mL/min (>60) L 07/15/24 06:05 Est GFR (MDRD) Non-Af 26 mL/min (>60) L 07/15/24 06:05 BUN/Creatinine Ratio 23.1 RATIO (10-20) H 07/15/24 06:05 Glucose 170 mg/dL (74-106) H 07/15/24 06:05 Vancomycin Trough 26.6 ug/mL (5.0-15.0) H 07/14/24 18:00 Random Vancomycin 20.6 ug/mL (0.0-15.0) H 07/15/24 17:58 Goal Trough Goal Trough: 15-20 mcg/mL Pharmacy Plan for Drug Dosing Pharmacy Plan for Drug Dosing: Pharmacy Service will continue to monitor and adjust dosing as required. RANDOM LEVEL 20.6 @ 31 HOURS. DRAW RANDOM LEVEL IN 8 HOURS Follow-Up Labs Follow-Up Labs: Trough: Vancomycin Date/Time Labs Ordered Labs to be done on [date and time ordered]: 07/16 @ 0200
[2024-07-15] MEDS: Atorvastatin Calcium 40 MG Tablet PO (22:26)
[2024-07-15 22:47] LABS: Bedside Glucose 263 mg/dL (74-106)
[2024-07-16 03:02] VITALS: BP 127/58; PULSE 72; RESP 18; TEMP 36.8; O2SAT 96
[2024-07-16 03:02] LABS: Vancomycin, Random Level 18.8 ug/mL (0.0-15.0)
--- NOTE | 2024-07-16 03:09 | PCM.RX.CS ---
Consult Antibiotic Management Pharmacy has been consulted to manage selected antibiotic: Vancomycin Type of Intervention Type of Consult: Follow-up Labs Labs: Sodium 139 mmol/L (136-145) 07/15/24 06:05 Potassium 4.7 mmol/L (3.5-5.1) 07/15/24 06:05 Chloride 107 mmol/L (98-107) 07/15/24 06:05 Carbon Dioxide 27.0 mmol/L (21.0-32.0) 07/15/24 06:05 Anion Gap 5 (5-15) 07/15/24 06:05 BUN 46 mg/dL (7-18) H 07/15/24 06:05 Creatinine 1.99 mg/dL (0.55-1.02) H 07/15/24 06:05 Est GFR (MDRD) Af Amer 31 mL/min (>60) L 07/15/24 06:05 Est GFR (MDRD) Non-Af 26 mL/min (>60) L 07/15/24 06:05 BUN/Creatinine Ratio 23.1 RATIO (10-20) H 07/15/24 06:05 Glucose 170 mg/dL (74-106) H 07/15/24 06:05 Vancomycin Trough 26.6 ug/mL (5.0-15.0) H 07/14/24 18:00 Random Vancomycin 18.8 ug/mL (0.0-15.0) H 07/16/24 02:19 Goal Trough Goal Trough: 15-20 mcg/mL Pharmacy Plan for Drug Dosing Pharmacy Plan for Drug Dosing: Pharmacy Service will continue to monitor and adjust dosing as required. \RANDOM LEVEL 18.8. START 500MG Q24H AND FOLLOW UP TROUGH PRIOR TO 3RD DOSE Follow-Up Labs Follow-Up Labs: Trough: Vancomycin Date/Time Labs Ordered Labs to be done on [date and time ordered]: 07/18 @ 1382
[2024-07-16] MEDS: Vancomycin IV 500 MG/100 ML BAG 100 MG IV (03:40)
[2024-07-16 04:06] VITALS: BMI 43.0
[2024-07-16 06:34] LABS: Absolute Lymphocyte Count 0.94 X10^3/uL (0.83-4.51); Absolute Neutrophil Count 6.2 X10^3/uL (2.0-7.7); Basophil# 0.04 X10^3/uL; Basophil% 0.5 % (0-1); Eosinophil# 0.11 X10^3/uL; Eosinophils% 1.4 % (0-5); Hematocrit 25.5 % (37-47); Hemoglobin 7.4 g/dL (12.0-15.0); Lymphocyte # 0.94 X10^3/ul (0.83-4.51); Lymphocyte % 11.8 % (19-41); Mean Corpuscular Hgb 23.9 pg (27.0-32.0); Mean Corpuscular Volume 82.5 fL (81-99); Mean Platelet Vol. 10.1 fl (6.2-12.0); Monocyte# 0.68 X10^3/uL; Monocyte% 8.5 % (0-10); NRBC Flagged by Analyzer 0 % (0-5); Neutrophil # 6.15 X10^3/uL (2.7-7.7); Neutrophil % 77.3 % (47-70); Platelet Count 283 K/mm3 (150-450); RBC Distribution Width CV 14.8 % (11.6-14.6); RBC Distribution Width SD 44.8 fl (35.1-43.9); Red Blood Count 3.09 M/mm3 (4.2-5.4)
[2024-07-16] MEDS: Insulin Lispro 100 UNIT/ML INSULN.PEN SC ×4 (06:43→21:47)
[2024-07-16] MEDS: Piperacil/Tazobactam 3.375 GM in 0.9% Normal Saline (50mL MB+) 50 ML IV ×3 (06:43→21:49)
[2024-07-16 06:58] LABS: Anion Gap 5 (5-15); BUN 45 mg/dL (7-18); BUN/Creat Ratio 23.1 RATIO (10-20); Chloride 106 mmol/L (98-107); Creatinine, Serum 1.95 mg/dL (0.55-1.02); EST Glomerular Filtration Rate 27 mL/min (>60); Est Glom Filt Rate - Afr Amer 32 mL/min (>60); Estimated Creatinine Clearance 32.59 ml/min; Glucose 223 mg/dL (74-106); Potassium 4.1 mmol/L (3.5-5.1); Sodium Level 139 mmol/L (136-145)
[2024-07-16 07:09] LABS: Bedside Glucose 196 mg/dL (74-106)
[2024-07-16 09:00] VITALS: BP 115/60; PULSE 75; RESP 18; TEMP 36.6; O2SAT 94
[2024-07-16] MEDS: Menthol/Lanolin/Calamine/Znox 113 GM Tube 1 APPLIC TOPICAL ×2 (10:14→21:48)
[2024-07-16] MEDS: Carvedilol 25 MG Tablet PO ×2 (10:15→21:48)
[2024-07-16] MEDS: Aspirin E.C. 81 MG Tablet PO (10:16)
[2024-07-16] MEDS: Nystatin Powder 15gm Bottle 1 APPLIC TOPICAL ×2 (10:16→21:49)
[2024-07-16] MEDS: Enoxaparin 40 MG/0.4 ML Syringe SC (10:16)
--- NOTE | 2024-07-16 13:20 | PN_ITS ---
Subjective Subjective Patient seen and examined. She had no complaints today. Review of systems otherwise negative. She has remained hemodynamically stable. Objective Data Objective Data Vital Signs: Vital Signs Temp Pulse Resp BP Pulse Ox O2 Del Method O2 Flow Rate 98 F 75 18 115/60 94 Room Air 2 07/16/24 09:00 07/16/24 09:00 07/16/24 09:00 07/16/24 09:00 07/16/24 09:00 07/16/24 09:00 07/14/24 17:55 Oxygen Flow Rate (L/min) 2 Oxygen Delivery Method Room Air Weight: 267 lb 6.731 oz Body Mass Index (BMI) 43.0 Intake & Output: Intake and Output for Last 24 Hours 07/14/24 07/15/24 07/16/24 23:59 23:59 23:59 Intake Total 520 / 520 1350 / 1350 200 / 200 Output Total 1999 / 1999 2200 / 2200 300 / 300 Balance -1480 / -1480 -850 / -850 -100 / -100 Lab / Micro Data 07/16/24 05:25 07/16/24 05:25 Labs: Laboratory Results - last 24 hr 07/15/24 16:50: POC Glucose 314 H 07/15/24 17:58: Random Vancomycin 20.6 H 07/15/24 22:24: POC Glucose 263 H 07/16/24 02:19: Random Vancomycin 18.8 H 07/16/24 05:25: WBC 8.0, RBC 3.09 L, Hgb 7.4 L, Hct 25.5 L, MCV 82.5, MCH 23.9 L , MCHC 29.0 L, RDW Std Deviation 44.8 H, RDW Coeff of Bulmaro 14.8 H, Plt Count 283, MPV 10.1, Immature Gran % (Auto) 0.500, Neut % (Auto) 77.3 H, Lymph % (Auto) 11.8 L, [place] % (Auto) 8.5, Eos % (Auto) 1.4, Baso % (Auto) 0.5, Absolute Neuts (auto) 6.2, Absolute Lymphs (auto) 0.94, Nucleated RBC % 0, Sodium 139, Potassium 4.1, Chloride 106, Carbon Dioxide 27.0, Anion Gap 5, BUN 45 H, C reatinine 1.95 H, Estim Creat Clear Calc 32.59, Est GFR (MDRD) Af Amer 32 L, Est GFR (MDRD) Non-Af 27 L, BUN/Creatinine Ratio 23.1 H, Glucose 223 H, Calcium 9.0 07/16/24 06:42: POC Glucose 196 H Physical Exam Const alert, oriented x3, no apparent distress and well nourished Constitutional Narrative: morbidly obese General Appearance: cooperative HEENT normocephalic, head/scalp atraumatic, moist oral mucous membranes and oropharynx normal Eyes PERRL and EOMs intact bilaterally Neck no lymphadenopathy and supple Lymph Lymphatic: no lymphadenopathy noted and no lymphedema noted Resp normal respiratory effort, normal air movement and clear to auscultation bilaterally Resp Narrative: on room air. Cardio regular rate, regular rhythm, S1 normal heart sound, S2 normal heart sound and no murmurs GI normal to inspection, nondistended, normoactive bowel sounds, soft to palpation, non-tender and non-distended Extremity Extremity Narrative: both lower extremities wrapped in bandage. Skin Skin Narrative: both lower extremities wrapped in bandage. Neuro CN's II-XII intact bilaterally, no focal motor deficits, no sensory deficits noted and deep tendon reflexes 2+ bilaterally Motor Exam: strength 5/5 throughout Psych thought process normal and cooperative Appearance: appropriate Assessment & Plan Assessment/Plan (1) Cellulitis of left lower limb: (2) Non-pressure chronic ulcer of other 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: PLAN: Plan #Bilateral diabetic foot ulcer * Failed outpatient therapy. She had been following up at the wound center and had been on oral antibiotics. However her wounds were not improving. * Sent into the ED from the wound center. Currently on IV vancomycin and Zosyn * Podiatry on board. Had excision of fifth left foot metatarsal head and debridement of ulceration to the level of the muscle of the right foot and debridement of ulceration to the muscle of the left foot * today is POD 2 * wound cultures ordered. It does not seem like she had any culture samples taken during surgery. Though she has started antibioitics, I think it is reasonable to still get wound cultures. Defer to ID about duration of IV antibiotics. * * #Type 2 diabetes mellitus: * Will cut down lantus to 40 units daily due to A1C being only 6. * on dapagliflozin also. * Accuchecks ACHS * A1C is 6. * #History of Combined heart failure: * Not in exacerbation. Continue diuresis. * Breathing treatments bronchodilators. * On valsartan and carvedilol as well as Lasix and metolazone #Benign essential hypertension: On valsartan and carvedilol #Acute on chronic Anemia: * Hb today is 7.4. Hb yesterday was 8.1. * Baseline hb is ~ 8-9. * chronic anemia is likely due to CKD. However, she may have had some blood loss from surgery also. * Transfuse if Hb <7. #CKD stage IV: Cr remains at baseline. Will monitor. #Hyperlipidemia: On statin #History of CAD with ischemic cardiomyopathy #History of CVA: on aspirin and statin. DVT prophylaxis: lovenox; Hold if Hb continues to drop Charges/Coding Visit Charges Inpatient E&M: 85990 Subs Hosp L2
[2024-07-16 15:00] VITALS: BP 139/60; PULSE 75; RESP 18; TEMP 36.6; O2SAT 93
[2024-07-16 16:01] LABS: Bedside Glucose 254 mg/dL (74-106)
[2024-07-16 18:21] LABS: Bedside Glucose 365 mg/dL (74-106)
[2024-07-16] MEDS: Atorvastatin Calcium 40 MG Tablet PO (21:48)
[2024-07-16 21:51] VITALS: BP 151/59; PULSE 74; RESP 18; TEMP 36.5; O2SAT 95
[2024-07-16 22:19] LABS: Bedside Glucose 286 mg/dL (74-106)
[2024-07-17] MEDS: Vancomycin IV 500 MG/100 ML BAG 100 MG IV (03:42)
[2024-07-17 03:55] VITALS: BP 147/69; PULSE 68; RESP 18; TEMP 36.3; O2SAT 95
[2024-07-17 04:11] VITALS: BMI 42.0
[2024-07-17] MEDS: Insulin Lispro 100 UNIT/ML INSULN.PEN SC ×3 (06:15→16:51)
[2024-07-17] MEDS: Piperacil/Tazobactam 3.375 GM in 0.9% Normal Saline (50mL MB+) 50 ML IV ×3 (06:16→22:45)
[2024-07-17 06:36] LABS: Bedside Glucose 241 mg/dL (74-106)
[2024-07-17 07:38] LABS: Absolute Lymphocyte Count 1.05 X10^3/uL (0.83-4.51); Absolute Neutrophil Count 5.4 X10^3/uL (2.0-7.7); Basophil# 0.04 X10^3/uL; Basophil% 0.6 % (0-1); Eosinophil# 0.13 X10^3/uL; Eosinophils% 1.8 % (0-5); Hematocrit 26.1 % (37-47); Hemoglobin 7.7 g/dL (12.0-15.0); Lymphocyte # 1.05 X10^3/ul (0.83-4.51); Lymphocyte % 14.6 % (19-41); Mean Corp Hgb Conc 29.5 g/dL (32-36); Mean Corpuscular Hgb 24.8 pg (27.0-32.0); Mean Corpuscular Volume 83.9 fL (81-99); Mean Platelet Vol. 10.2 fl (6.2-12.0); Monocyte# 0.54 X10^3/uL; Monocyte% 7.5 % (0-10); NRBC Flagged by Analyzer 0 % (0-5); Neutrophil # 5.41 X10^3/uL (2.7-7.7); Neutrophil % 74.9 % (47-70); Platelet Count 285 K/mm3 (150-450); RBC Distribution Width CV 14.9 % (11.6-14.6); RBC Distribution Width SD 45.2 fl (35.1-43.9); Red Blood Count 3.11 M/mm3 (4.2-5.4); White Blood Count 7.2 K/mm3 (4.4-11.0)
--- NOTE | 2024-07-17 07:50 | PCM.PROGNOTE ---
Subjective Subjective Patient was seen early this a.m. resting in bed with both feet elevated. Patient denies pain to either foot. Does states she has a bit of a nosebleed this morning. She was able to void postsurgery. Denies constitutional symptoms. Denies further complaints. Objective Data Objective Data Vital Signs: Vital Signs Temp Pulse Resp BP Pulse Ox O2 Del Method O2 Flow Rate 97.3 F L 68 18 147/69 H 95 Room Air 2 07/17/24 03:55 07/17/24 03:55 07/17/24 03:55 07/17/24 03:55 07/17/24 03:55 07/17/24 03:55 07/14/24 17:55 Oxygen Flow Rate (L/min) 2 Oxygen Delivery Method Room Air Weight: 118.6 kg Body Mass Index (BMI) 42.0 Intake & Output: Intake and Output for Last 24 Hours 07/15/24 07/16/24 07/17/24 23:59 23:59 23:59 Intake Total 1350 / 1350 750 / 750 150 / 150 Output Total 2200 / 2200 700 / 700 300 / 300 Balance -850 / -850 50 / 50 -150 / -150 Lab / Micro Data 07/17/24 07:03 07/16/24 05:25 Labs: Laboratory Results - last 24 hr 07/16/24 12:30: POC Glucose 254 H 07/16/24 17:54: POC Glucose 365 H 07/16/24 21:45: POC Glucose 286 H 07/17/24 06:14: POC Glucose 241 H 07/17/24 07:03: WBC 7.2, RBC 3.11 L, Hgb 7.7 L, Hct 26.1 L, MCV 83.9, MCH 24.8 L, MCHC 29.5 L, RDW Std Deviation 45.2 H, RDW Coeff of Bulmaro 14.9 H, Plt Count 285, MPV 10.2, Immature Gran % (Auto) 0.600, Neut % (Auto) 74.9 H, Lymph % (Auto) 14.6 L, [place] % (Auto) 7.5, Eos % (Auto) 1.8, Baso % (Auto) 0.6, Absolute Neuts (auto) 5.4, Absolute Lymphs (auto) 1.05, Nucleated RBC % 0 Physical Exam Const alert, oriented x3 and no apparent distress General Appearance: cooperative Nutritional Appearance: morbidly obese HEENT normocephalic Eyes General Eye: normal appearance of both eyes Neck General: normal visual inspection Lymph Lymphatic: no lymphadenopathy noted and no lymphedema noted Resp Resp Narrative: Diminished with bilateral chronic wheezing. Cardio regular rate and regular rhythm Extremity Extremity Narrative: Vascular: DP and PT pulses weakly palpable. CFT is less than 5 seconds to the digits. Temperature gradient is normal. Hair growth is absent to the digits. There is chronic rubor/erythema secondary to chronic venous stasis changes and trophic changes of the lower extremity with overlying chronic xerotic skin flaking. Neurologic: Light touch sensation diminished. Protective sensation is absent secondary to diabetic peripheral polyneuropathy. Gross sensation is intact. Musculoskeletal: Muscle strength 4 of 5 due to generalized weakness as patient does not ambulate much. Does ambulate with the assistance of walker. There is decreased range of motion of the ankle joint dorsiflexion with the knee extended without pain or crepitus. No calf pain to palpation. Decreased range of motion of the STJ, MTJ, and first MTPJ without pain or crepitus. No pain to palpation about the ulcerative sites subfifth metatarsal head bilateral foot. Dermatologic: Bilateral lower extremity demonstrates edema and chronic venous stasis changes with dermatitis. Postsurgical intervention: Sutures intact overlying the fifth metatarsal head of the left foot. Left plantar ulceration was dressed with vancomycin powder and dry sterile dressing. Left foot ulceration postdebridement measures 4.1 cm x 4.2 cm x 0.5 cm. Surgical dressings remain intact to the left foot. Right foot demonstrates intact sutures overlying the fifth metatarsal head with advanced wound care product/graft in place to the plantar aspect of the right foot. Right foot ulceration postdebridement measures 2.5 cm x 2.5 cm x 0.5 cm. Skin no rashes or lesions noted Neuro moves all extremities Assessment & Plan Assessment/Plan (1) Non-pressure chronic ulcer of other part of right foot with necrosis of muscle: (2) Non-pressure chronic ulcer of other 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: (3) Cellulitis of foot, right: (4) Cellulitis of left lower limb: (5) Diabetes mellitus with diabetic polyneuropathy: (6) Type 2 diabetes mellitus with foot ulcer: (7) Diabetic infection of left foot: PLAN: Plan Patient seen and evaluated She is s/p excision of the fifth metatarsal head right foot and left foot, debridement of ulceration to the level of the muscle right foot and left foot, and application of advanced wound care product to the right foot ulceration. DOS 07/14/2024. POD #3 Sutures intact overlying the fifth metatarsal head of the left foot. Left plantar ulceration was dressed with vancomycin powder and dry sterile dressing. Left foot ulceration postdebridement measures 4.1 cm x 4.2 cm x 0.5 cm. Surgical dressings remain intact to the left foot. Right foot demonstrates intact sutures overlying the fifth metatarsal head with advanced wound care product/graft in place to the plantar aspect of the right foot. Right foot ulceration postdebridement measures 2.5 cm x 2.5 cm x 0.5 cm. Wounds do appear healthy postdebridement. Fifth metatarsal head of the left and right foot was sent to pathology. During surgical procedure there was no necrotic tissue internally or purulent drainage to culture. Vancomycin powder was placed internally into the plantar left wound with grafting product to the plantar right wound. WBC 8.6, HgbA1c 6.0% on 07/14/24, Hgb 8.3, Hct 27.2, Glucose 106, BUN 46, Cr 1.81 Currently on IV Vanco/Zosyn Surgical dressings were changed this morning to left and right foot. Grafting product remains in place to the right foot plantar wound. Betadine soaked Adaptic to the incision sites. Dakin's placed to left foot ulceration site. Dry sterile dressing placed to left and right foot. May change dressings daily. Medicine currently following for medical management, they are greatly appreciated ID following for antibiotic management Vascular following Wound nurse following for assistance in dressing changes She will remain nonweightbearing to the right foot and left foot. She may place weight to the left heel and right heel for transfer purposes to bedside commode or to wheelchair. She will continue to elevate both lower extremities for postoperative edema control Will need SNF placement for assistance in her care and recovery postoperatively. Son was in agreement with this when discussed. Discussed upon placement to SNF she will still follow with me in the wound care center for continued debridement and application of advanced wound care products to heal bilateral plantar foot ulcerations. Dr. Erwin will reevaluate and change dressing on Wednesday07/19/2024. If placed into SNF she will then follow-up with me in the wound care center on , 07/20/2024. Jr. Silas HewittP.M. [facility] [phone]
[2024-07-17 08:16] LABS: Anion Gap 8 (5-15); BUN 41 mg/dL (7-18); BUN/Creat Ratio 20.1 RATIO (10-20); Calcium,Total 9.2 mg/dL (8.5-10.1); Chloride 106 mmol/L (98-107); Creatinine, Serum 2.04 mg/dL (0.55-1.02); EST Glomerular Filtration Rate 25 mL/min (>60); Est Glom Filt Rate - Afr Amer 30 mL/min (>60); Estimated Creatinine Clearance 30.75 ml/min; Glucose 250 mg/dL (74-106); Potassium 4.1 mmol/L (3.5-5.1); Sodium Level 141 mmol/L (136-145)
[2024-07-17 08:22] VITALS: BP 157/76; PULSE 68; RESP 16; TEMP 36.4; O2SAT 96
[2024-07-17] MEDS: Insulin Glargine-YFGN 100 UNIT/ML Pen 40 UNIT SC (08:32)
--- NOTE | 2024-07-17 08:46 | WOUNDNOTE ---
wound photo: left foot
--- NOTE | 2024-07-17 08:47 | WOUNDNOTE ---
wound photo: left foot
--- NOTE | 2024-07-17 08:47 | WOUNDNOTE ---
wound photo: right foot
--- NOTE | 2024-07-17 09:08 | CASEMGMT ---
Discharge Planning Updates sent to [facility]. Mary Spears DC Planning Asst.
[2024-07-17] MEDS: Carvedilol 25 MG Tablet PO ×2 (10:02→22:53)
[2024-07-17] MEDS: Losartan Potassium 50 MG Tablet PO (10:03)
[2024-07-17] MEDS: Aspirin E.C. 81 MG Tablet PO (10:03)
[2024-07-17] MEDS: metOLazone 5 MG Tablet PO (10:03)
[2024-07-17] MEDS: FLUoxetine 10 MG Capsule PO (10:03)
[2024-07-17] MEDS: Empagliflozin 25 MG Tablet PO (10:04)
[2024-07-17] MEDS: Enoxaparin 40 MG/0.4 ML Syringe SC (10:04)
[2024-07-17] MEDS: Furosemide 80 MG Tablet PO (10:04)
[2024-07-17] MEDS: Nystatin Powder 15gm Bottle 1 APPLIC TOPICAL ×2 (10:05→22:48)
[2024-07-17] MEDS: Menthol/Lanolin/Calamine/Znox 113 GM Tube 1 APPLIC TOPICAL ×2 (10:08→22:46)
[2024-07-17 11:38] LABS: Bedside Glucose 269 mg/dL (74-106)
--- NOTE | 2024-07-17 12:23 | CASEMGMT ---
Addendum entered by Mahsa Saini 07/17/24 15:33: Per ID, pt will d/c on PO meds. SNF updated. Awaiting decision onreferral at this time. ROSE Hein Original Note: Social Work- spoke with Dr Erwin who reports pt will be NWB 3-4 weeks until sutures are out and wound approves. DCA advised, as SNF was requesting information. ROSE Hein
[2024-07-17 13:49] VITALS: BP 141/62; PULSE 66; RESP 17; TEMP 36.4; O2SAT 94
--- NOTE | 2024-07-17 16:10 | CASEMGMT ---
Addendum entered by Mahsa Saini 07/17/24 16:53: [facility] can accept referral. Precert to be started tomorrow. ROSE Hein Original Note: Social Work- SW received word that [facility] is unable to accept referral. SW updated pt and requested second choice. Pt chose [facility]. DCA advised. [facility] remains available to follow. ROSE Hein
--- NOTE | 2024-07-17 16:26 | CASEMGMT ---
Addendum entered by Mary Spears 07/18/24 08:50: Updates sent to [facility]. Requested precert be started. updated. Mary Spears DC Planning Asst. Addendum entered by Mary Spears 07/17/24 16:35: [facility] has accepted. updated. Mary Spears DC Planning Asst. Original Note: Discharge Planning Referral sent to [facility] via [employer]. Mary Spears DC Planning Asst.
[2024-07-17 16:35] LABS: Bedside Glucose 254 mg/dL (74-106)
--- NOTE | 2024-07-17 17:19 | CON.PCM.ID_ITS ---
Assessment & Plan Assessment/Plan (1) Diabetes mellitus with diabetic polyneuropathy: (2) Diabetic infection of left foot: PLAN: L 5th met osteo. Taken to OR 07/14/[address] Erwin for bilat 5th met resection. If infected bone has been completely resected, plan will be for one week po doxy and augmentin at discharge while final surg results are still pending. If residual osteo, abx will need to be extended. Will follow, thank you HPI Consult Data Date of Consult: 07/17/24 HPI Narrative Reason for Consultation: osteo HPI Narrative: PRICILA WALDROP, is a 74 F with DM neuropathy, presented with 1-2 months progressive bilat foot wound with redness, swelling, drainage. Mild pain. No fever or chills, no recent abx. Came to ED, admitted on vanc and ceftriaxone. Taken to OR 07/[address] Erwin for bilat 5th met resection. Feeling better today. Full ROS performed and neg except as noted above. [facility] Medical History Dyspnea Ischemic cardiomyopathy History of CVA (cerebrovascular accident) Atherosclerosis of coronary artery without angina pectoris Type 2 diabetes mellitus Secondary pulmonary arterial hypertension Chronic combined systolic and diastolic CHF (congestive heart failure) Essential hypertension Obesity Chronic kidney disease (CKD) GI bleed (01/2022) Anemia Diabetes mellitus type 2 in obese Hyperlipidemia Home Medications ?Medication ?Instructions ?Recorded ?Last Taken ?Type atorvastatin 40 mg tablet 40 mg PO QHS CHOLESTEROL 02/22/22 Unknown History valsartan 160 mg tablet 160 mg PO DAILY BLOOD PRESSURE 02/22/22 Unknown History aspirin 81 mg tablet,delayed 81 mg PO DAILY HEART HEALTH 06/03/22 Unknown History release (Adult Aspirin Regimen) carvedilol 25 mg tablet 25 mg PO BID HEART #180 tabs 07/12/24 Unknown Rx dapagliflozin propanediol 10 mg 10 mg PO DAILY DIABETES #90 tabs 07/12/24 Unknown Rx tablet (Farxiga) furosemide 40 mg tablet 80 mg PO DAILY EDEMA 07/12/24 Unknown History insulin detemir U-100 100 unit/mL 60 unit subcut BREAKFAST 07/12/24 Unknown History (3 mL) subcutaneous pen (Levemir FlexTouch U-100 Insulin) blood sugar diagnostic (Accu-Chek 07/13/24 Unknown History Alvina Plus test strips) ciprofloxacin HCl 500 mg tablet 500 mg PO BID ANTIBIOTIC 07/13/24 Unknown History doxycycline hyclate 100 mg tablet 100 mg PO BID ANTIBIOTIC 07/13/24 Unknown History fluoxetine 10 mg capsule 10 mg PO DAILY 07/13/24 Unknown History insulin lispro 100 unit/mL 25 unit subcut ACHS 07/13/24 Unknown History subcutaneous pen (Humalog KwikPen (U-100) Insulin) metolazone 5 mg tablet 5 mg PO DAILY 07/13/24 Unknown History Allergy/AdvReac Type Severity Reaction Status Date / Time No Known Allergies Allergy Verified 07/13/24 12:39 Family History Father Diabetes Heart disease CAD (coronary artery disease) Mother Heart disease Surgical History History of coronary artery stent placement (09/2013) H/O vein stripping Status post angioplasty with stent Social History household members: family Smoking Status: Former smoker how long ago did patient quit smokin years ago alcohol intake: never substance use type: does not use caffeine: Yes Physical Exam Const alert, oriented x3 and no apparent distress General Appearance: cooperative HEENT normocephalic and head/scalp atraumatic Eyes PERRL and EOMs intact bilaterally Neck supple and No nodes Resp normal air movement and clear to auscultation bilaterally Cardio regular rate and regular rhythm GI soft to palpation, non-tender and non-distended Extremity General Extremity: edema Skin Skin Narrative: reviewed photos Neuro CN's II-XII intact bilaterally Lab / Micro Data Attestation: I reviewed the patient's lab results. 07/17/24 07:03 07/17/24 07:03 Labs: Laboratory Results - last 24 hr 07/16/24 17:54: POC Glucose 365 H 07/16/24 21:45: POC Glucose 286 H 07/17/24 06:14: POC Glucose 241 H 07/17/24 07:03: WBC 7.2, RBC 3.11 L, Hgb 7.7 L, Hct 26.1 L, MCV 83.9, MCH 24.8 L , MCHC 29.5 L, RDW Std Deviation 45.2 H, RDW Coeff of Bulmaro 14.9 H, Plt Count 285, MPV 10.2, Immature Gran % (Auto) 0.600, Neut % (Auto) 74.9 H, Lymph % (Auto) 14.6 L, [place] % (Auto) 7.5, Eos % (Auto) 1.8, Baso % (Auto) 0.6, Absolute Neuts (auto) 5.4, Absolute Lymphs (auto) 1.05, Nucleated RBC % 0, Sodium 141, Potassium 4.1, Chloride 106, Carbon Dioxide 27.0, Anion Gap 8, BUN 41 H, C reatinine 2.04 H, Estim Creat Clear Calc 30.75, Est GFR (MDRD) Af Amer 30 L, Est GFR (MDRD) Non-Af 25 L, BUN/Creatinine Ratio 20.1 H, Glucose 250 H, Calcium 9.2 07/17/24 11:18: POC Glucose 269 H 07/17/24 16:14: POC Glucose 254 H
[2024-07-17 18:38] VITALS: BP 148/66; PULSE 75; RESP 17; TEMP 36.3; O2SAT 94
--- NOTE | 2024-07-17 20:20 | PN.HOSP_ITS ---
Reason for Visit Reason for Visit: Diagnoses Type 2 diabetes mellitus with diabetic polyneuropathy (07/13/24) Type 2 diabetes mellitus with foot ulcer (07/13/24) Type 2 diabetes mellitus with other skin complications (07/13/24) Cellulitis of right lower limb (07/13/24) Cellulitis of left lower limb (07/13/24) Local infection of the skin and subcutaneous tissue, unspecified (07/13/24) Non-pressure chronic ulcer of other part of unspecified foot with unspecified severity (07/13/24) Non-pressure chronic ulcer of other part of right foot with necrosis of muscle (07/13/24) Non-pressure chronic ulcer of other 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 (07/13/24) Chronic kidney disease, unspecified (07/13/24) Dyspnea, unspecified (07/13/24) Other malaise (07/13/24) Objective Data Objective Data Vital Signs: Vital Signs Temp Pulse Resp BP Pulse Ox O2 Del Method O2 Flow Rate 97.4 F L 75 17 148/66 H 94 Room Air 2 07/17/24 18:38 07/17/24 18:38 07/17/24 18:38 07/17/24 18:38 07/17/24 18:38 07/17/24 18:38 07/14/24 17:55 Oxygen Flow Rate (L/min) 2 Oxygen Delivery Method Room Air Weight: 118.6 kg Body Mass Index (BMI) 42.0 Intake & Output: Intake and Output for Last 24 Hours 07/15/24 07/16/24 07/17/24 23:59 23:59 23:59 Intake Total 1350 / 1350 750 / 750 500 / 500 Output Total 2200 / 2200 700 / 700 1100 / 1100 Balance -850 / -850 50 / 50 -600 / -600 Lab / Micro Data 07/17/24 07:03 07/17/24 07:03 Labs: Laboratory Results - last 24 hr 07/16/24 21:45: POC Glucose 286 H 07/17/24 06:14: POC Glucose 241 H 07/17/24 07:03: WBC 7.2, RBC 3.11 L, Hgb 7.7 L, Hct 26.1 L, MCV 83.9, MCH 24.8 L , MCHC 29.5 L, RDW Std Deviation 45.2 H, RDW Coeff of Bulmaro 14.9 H, Plt Count 285, MPV 10.2, Immature Gran % (Auto) 0.600, Neut % (Auto) 74.9 H, Lymph % (Auto) 14.6 L, [place] % (Auto) 7.5, Eos % (Auto) 1.8, Baso % (Auto) 0.6, Absolute Neuts (auto) 5.4, Absolute Lymphs (auto) 1.05, Nucleated RBC % 0, Sodium 141, Potassium 4.1, Chloride 106, Carbon Dioxide 27.0, Anion Gap 8, BUN 41 H, C reatinine 2.04 H, Estim Creat Clear Calc 30.75, Est GFR (MDRD) Af Amer 30 L, Est GFR (MDRD) Non-Af 25 L, BUN/Creatinine Ratio 20.1 H, Glucose 250 H, Calcium 9.2 07/17/24 11:18: POC Glucose 269 H 07/17/24 16:14: POC Glucose 254 H Charges/Coding Visit Charges Inpatient E&M: 95891 Subs Hosp L2
--- NOTE | 2024-07-17 20:20 | PCM.PN.HOSP ---
Reason for Visit Reason for Visit: Patient denies any issues. States her pain is well-controlled. Is amenable to being discharged to a nursing facility at discharge for ongoing care. We did discuss infectious disease seeing her today and vascular surgery seeing her tomorrow or as an outpatient depending on discharge planning. She voiced understanding. Objective Data Objective Data Vital Signs: Vital Signs Temp Pulse Resp BP Pulse Ox O2 Del Method O2 Flow Rate 97.4 F L 75 17 148/66 H 94 Room Air 2 07/17/24 18:38 07/17/24 18:38 07/17/24 18:38 07/17/24 18:38 07/17/24 18:38 07/17/24 18:38 07/14/24 17:55 Oxygen Flow Rate (L/min) 2 Oxygen Delivery Method Room Air Weight: 118.6 kg Body Mass Index (BMI) 42.0 Intake & Output: Intake and Output for Last 24 Hours 07/15/24 07/16/24 07/17/24 23:59 23:59 23:59 Intake Total 1350 / 1350 750 / 750 500 / 500 Output Total 2200 / 2200 700 / 700 1100 / 1100 Balance -850 / -850 50 / 50 -600 / -600 Lab / Micro Data 07/17/24 07:03 07/17/24 07:03 Labs: Laboratory Results - last 24 hr 07/16/24 21:45: POC Glucose 286 H 07/17/24 06:14: POC Glucose 241 H 07/17/24 07:03: WBC 7.2, RBC 3.11 L, Hgb 7.7 L, Hct 26.1 L, MCV 83.9, MCH 24.8 L, MCHC 29.5 L, RDW Std Deviation 45.2 H, RDW Coeff of Bulmaro 14.9 H, Plt Count 285, MPV 10.2, Immature Gran % (Auto) 0.600, Neut % (Auto) 74.9 H, Lymph % (Auto) 14.6 L, [place] % (Auto) 7.5, Eos % (Auto) 1.8, Baso % (Auto) 0.6, Absolute Neuts (auto) 5.4, Absolute Lymphs (auto) 1.05, Nucleated RBC % 0, Sodium 141, Potassium 4.1, Chloride 106, Carbon Dioxide 27.0, Anion Gap 8, BUN 41 H, Creatinine 2.04 H, Estim Creat Clear Calc 30.75, Est GFR (MDRD) Af Amer 30 L, Est GFR (MDRD) Non-Af 25 L, BUN/Creatinine Ratio 20.1 H, Glucose 250 H, Calcium 9.2 07/17/24 11:18: POC Glucose 269 H 07/17/24 16:14: POC Glucose 254 H Physical Exam Const alert, oriented x3, no apparent distress and well nourished; Negative for average body habitus or healthy appearing Constitutional Narrative: Morbidly obese, older, white female, sitting up in bed watching television eating lunch, appears comfortable, nontoxic HEENT head/scalp atraumatic and moist oral mucous membranes HEENT Narrative: No thrush, Mallampati 3 Head and Scalp: normocephalic Resp normal respiratory effort, no retractions, no use of accessory muscles and clear to auscultation bilaterally Auscultation: Negative for rales, rhonchi or wheezes Cardio regular rate, regular rhythm, S1 normal heart sound, S2 normal heart sound, no murmurs, no rub, no gallops and no clicks GI normal to inspection, nondistended, normoactive bowel sounds, soft to palpation and non-tender GI Narrative: Large protuberant abdomen Extremity Extremity Narrative: Bilateral lower extremity edema with both legs wrapped in dressings with Addy bandages in place as well Neuro oriented x3, moves all extremities and no focal motor deficits Psych affect normal Psych Narrative: Very pleasant, interacts appropriately Assessment & Plan Assessment/Plan (1) Cellulitis of left lower limb: (2) Non-pressure chronic ulcer of other 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: PLAN: Plan Diabetic wound infection left foot -Taken to the OR on 07/14/[address] Erwin with bilateral fifth metatarsal resection -Infected bone has been completely resected -At discharge will plan on 1 week of oral doxycycline and Augmentin -Continue current IV antibiotics with vancomycin and Zosyn -Finalized cultures are still pending -Per documentation from infectious disease if any residual osteo is noted in operative cultures antibiotics will need to be extended -Will have patient follow-up with ID in 2 weeks -Vascular surgery consult pending and plan to see patient tomorrow DM-2 -Blood sugars are not well-controlled -Increase basal insulin to home dose of 60 units -Restart home prandial insulin `-Patient typically takes 25 units 4 times daily but will utilize 15 units 4 times daily -Stop SSI -A1c on presentation was 6.0 so she is well-controlled with her baseline-blood sugar regimen -Continue home Farxiga with Jardiance as therapeutic substitution CAD/ischemic cardiomyopathy/essential hypertension/hyperlipidemia -[id number]-[id number] LAD w/ 3.0 x 24 mm Promus Element Stent and LORI-Mid OM1 w/ 2.25 x 12 mm Promus Element Stent 09/28/2013 -Continue home metolazone -Continue home Lasix -Continue home carvedilol -Continue home valsartan -Continue Farxiga -Continue aspirin -Patient's last echocardiogram done on 02/28/2024 showed an EF of 35%, stage I diastolic dysfunction and severe segmental systolic dysfunction -Continue outpatient follow-up with cardiology CKD stage IV -Serum creatinine is relatively stable -Monitor closely with ongoing diuresis -Continued outpatient follow-up Chronic anemia -Likely multifactorial -Patient with chronic renal disease -Continue to monitor as hemoglobin is currently stable History of stroke -Continue home aspirin -Continue to address modifiable risk factors Depression -Continue home fluoxetine Morbid obesity -BMI 42.2 -Complicates treatment, prognosis, outcomes -Recommend weight loss DVT prophylaxis -Discontinue enoxaparin with renal dysfunction at baseline and start heparin 3 times daily CODE STATUS -Full code Charges/Coding Visit Charges Inpatient E&M: 64430 Subs Hosp L2
[2024-07-17 20:35] VITALS: BP 148/73; PULSE 69; RESP 18; TEMP 36.6; O2SAT 95
[2024-07-17 22:48] LABS: Bedside Glucose 226 mg/dL (74-106)
[2024-07-17] MEDS: Heparin Injection (Vial) 5,000 UNIT/ML VIAL 5000 UNIT SC (22:48)
[2024-07-17] MEDS: Insulin Lispro 100 UNIT/ML INSULN.PEN 15 UNIT SC (22:49)
[2024-07-17] MEDS: Atorvastatin Calcium 40 MG Tablet PO (22:53)
[2024-07-18 03:53] LABS: Vancomycin, Trough Level 19.6 ug/mL (5.0-15.0)
--- NOTE | 2024-07-18 03:57 | PCM.RX.CS ---
Consult Antibiotic Management Pharmacy has been consulted to manage selected antibiotic: Vancomycin Type of Intervention Type of Consult: Follow-up Labs Labs: Sodium 141 mmol/L (136-145) 07/17/24 07:03 Potassium 4.1 mmol/L (3.5-5.1) 07/17/24 07:03 Chloride 106 mmol/L (98-107) 07/17/24 07:03 Carbon Dioxide 27.0 mmol/L (21.0-32.0) 07/17/24 07:03 Anion Gap 8 (5-15) 07/17/24 07:03 BUN 41 mg/dL (7-18) H 07/17/24 07:03 Creatinine 2.04 mg/dL (0.55-1.02) H 07/17/24 07:03 Est GFR (MDRD) Af Amer 30 mL/min (>60) L 07/17/24 07:03 Est GFR (MDRD) Non-Af 25 mL/min (>60) L 07/17/24 07:03 BUN/Creatinine Ratio 20.1 RATIO (10-20) H 07/17/24 07:03 Glucose 250 mg/dL (74-106) H 07/17/24 07:03 Vancomycin Trough 19.6 ug/mL (5.0-15.0) H 07/18/24 03:05 Random Vancomycin 18.8 ug/mL (0.0-15.0) H 07/16/24 02:19 Goal Trough Goal Trough: 15-20 mcg/mL Pharmacy Plan for Drug Dosing Pharmacy Plan for Drug Dosing: Pharmacy Service will continue to monitor and adjust dosing as required. TROUGH 19.6 @ 23.5 HOURS. NO CHANGES, FOLLOW UP TROUGH IN 2 DAYS Follow-Up Labs Follow-Up Labs: Trough: Vancomycin Date/Time Labs Ordered Labs to be done on [date and time ordered]: 07/20 @ 0300
[2024-07-18] MEDS: Vancomycin IV 500 MG/100 ML BAG 100 MG IV (04:13)
[2024-07-18] MEDS: Heparin Injection (Vial) 5,000 UNIT/ML VIAL 5000 UNIT SC ×2 (05:49→15:09)
[2024-07-18] MEDS: Piperacil/Tazobactam 3.375 GM in 0.9% Normal Saline (50mL MB+) 50 ML IV ×2 (05:50→16:18)
[2024-07-18 06:00] VITALS: BP 150/64; PULSE 64; RESP 18; TEMP 36.4; O2SAT 95; BMI 42.0
[2024-07-18 07:09] LABS: Bedside Glucose 134 mg/dL (74-106)
[2024-07-18 07:17] LABS: Absolute Lymphocyte Count 0.99 X10^3/uL (0.83-4.51); Absolute Neutrophil Count 4.7 X10^3/uL (2.0-7.7); Basophil# 0.07 X10^3/uL; Eosinophil# 0.16 X10^3/uL; Eosinophils% 2.4 % (0-5); Hematocrit 25.9 % (37-47); Hemoglobin 7.7 g/dL (12.0-15.0); Lymphocyte # 0.99 X10^3/ul (0.83-4.51); Lymphocyte % 14.8 % (19-41); Mean Corp Hgb Conc 29.7 g/dL (32-36); Mean Corpuscular Hgb 24.6 pg (27.0-32.0); Mean Corpuscular Volume 82.7 fL (81-99); Mean Platelet Vol. 9.5 fl (6.2-12.0); Monocyte# 0.73 X10^3/uL; Monocyte% 10.9 % (0-10); NRBC Flagged by Analyzer 0 % (0-5); Neutrophil % 70.3 % (47-70); Platelet Count 261 K/mm3 (150-450); RBC Distribution Width CV 14.9 % (11.6-14.6); RBC Distribution Width SD 44.7 fl (35.1-43.9); Red Blood Count 3.13 M/mm3 (4.2-5.4); White Blood Count 6.7 K/mm3 (4.4-11.0)
[2024-07-18 08:05] LABS: Anion Gap 6 (5-15); BUN 41 mg/dL (7-18); BUN/Creat Ratio 18.7 RATIO (10-20); Calcium,Total 9.1 mg/dL (8.5-10.1); Chloride 107 mmol/L (98-107); Creatinine, Serum 2.19 mg/dL (0.55-1.02); EST Glomerular Filtration Rate 23 mL/min (>60); Est Glom Filt Rate - Afr Amer 28 mL/min (>60); Estimated Creatinine Clearance 28.64 ml/min; Glucose 143 mg/dL (74-106); Sodium Level 143 mmol/L (136-145)
[2024-07-18] MEDS: DAKIN'S SOL HALF STRENGTH (=0.25%) TOPICAL (08:52)
[2024-07-18] MEDS: Insulin Glargine-YFGN 100 UNIT/ML Pen 60 UNIT SC (08:54)
[2024-07-18] MEDS: Insulin Lispro 100 UNIT/ML INSULN.PEN 15 UNIT SC ×3 (08:55→17:32)
[2024-07-18 09:00] VITALS: BP 133/57; PULSE 68; RESP 18; TEMP 36.2; O2SAT 98
[2024-07-18] MEDS: Aspirin E.C. 81 MG Tablet PO (09:11)
[2024-07-18] MEDS: FLUoxetine 10 MG Capsule PO (09:11)
[2024-07-18] MEDS: Juven (unflavored) Packet 1 PACKET PO ×2 (09:11→16:21)
[2024-07-18] MEDS: Carvedilol 25 MG Tablet PO ×2 (09:11→21:58)
[2024-07-18] MEDS: Empagliflozin 25 MG Tablet PO (09:12)
[2024-07-18] MEDS: metOLazone 5 MG Tablet PO (09:12)
[2024-07-18] MEDS: amLODIPine 5 MG Tablet PO (09:12)
[2024-07-18] MEDS: Losartan Potassium 50 MG Tablet PO (09:12)
--- NOTE | 2024-07-18 09:53 | CASEMGMT ---
Discharge Planning [facility] has obtained auth to admit. SW updated. Mary Spears DC Planning Asst.
--- NOTE | 2024-07-18 10:05 | CASEMGMT ---
Social Work- SW met with pt to advise of acceptance and pre-authorization at [facility]. Physician notified. ROSE Hein
[2024-07-18] MEDS: Nystatin Powder 15gm Bottle 1 APPLIC TOPICAL ×2 (10:44→22:00)
[2024-07-18] MEDS: Menthol/Lanolin/Calamine/Znox 113 GM Tube 1 APPLIC TOPICAL ×2 (10:44→22:00)
[2024-07-18 10:47] VITALS: BP 150/65; PULSE 67; RESP 16; TEMP 36.5; O2SAT 99
[2024-07-18 12:24] LABS: Bedside Glucose 211 mg/dL (74-106)
--- NOTE | 2024-07-18 12:50 | PCM.DC.SUM ---
Providers Date of Admission: 07/13/24 Date of Discharge: 07/18/24 Primary Care Physician: Dr. Nabor James MD Consultations 07/13/24 17:33 Consult: Onc/Wound/wood miller Routine Comment: Consult: Podiatry Routine Consulting Provider: Paul Erwin Reason for Consult: Bilateral diabetic feet ulcer EMERGENT Consult: No MD Notified: Yes Date Notified: 07/13/24 Time Notified: 15:13 Method of Notification: ED Physician Initiated 07/14/24 19:45 Consult: Infectious Disease Routine Consulting Provider: Juancarlos Ramirez Reason for Consult: Bilateral DM foot infection. No OM. Prior to sx comp 6 weeks Doxy & Cipro EMERGENT Consult: No MD Notified: Yes Date Notified: 07/14/24 Time Notified: 19:44 Method of Notification: Text 07/14/24 19:50 Consult: Vascular Surgery Routine Consulting Provider: Eduardo Figueroa Reason for Consult: Evaluate for lower extremity edema and mild arterial disease bilateral EMERGENT Consult: No MD Notified: Yes Date Notified: 07/15/24 Time Notified: 06:54 Method of Notification: Text Reason For Visit: B/L DIABETIC FEET ULCER Diagnosis Discharge Diagnosis (1) Cellulitis of left lower limb: Status: Acute Code(s): L03.116 - Cellulitis of left lower limb (2) Non-pressure chronic ulcer of other 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: Status: Chronic Code(s): L97.523 - Non-pressure chronic ulcer of other 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 Medications at Discharge Home Medications atorvastatin 40 mg tablet 40 mg PO QHS CHOLESTEROL 02/22/22 valsartan 160 mg tablet 160 mg PO DAILY BLOOD PRESSURE 02/22/22 aspirin 81 mg tablet,delayed release (Adult Aspirin Regimen) 81 mg PO DAILY HEART HEALTH 06/03/22 carvedilol 25 mg tablet 25 mg PO BID HEART #180 tabs 07/12/24 dapagliflozin propanediol 10 mg tablet (Farxiga) 10 mg PO DAILY DIABETES #90 tabs 07/12/24 furosemide 40 mg tablet 80 mg PO DAILY EDEMA 07/12/24 insulin detemir U-100 100 unit/mL (3 mL) subcutaneous pen (Levemir FlexTouch U-100 Insulin) 60 unit subcut BREAKFAST 07/12/24 blood sugar diagnostic (Accu-Chek Alvina Plus test strips) 07/13/24 fluoxetine 10 mg capsule 10 mg PO DAILY 07/13/24 insulin lispro 100 unit/mL subcutaneous pen (Humalog KwikPen (U-100) Insulin) 25 unit subcut ACHS 07/13/24 metolazone 5 mg tablet 5 mg PO DAILY 07/13/24 acetaminophen 325 mg tablet 650 mg (2 x 325 mg) PO Q6H PRN PRN Pain 1-10 Or Fever >100.7 #0 tabs 07/18/24 amlodipine 5 mg tablet 5 mg PO DAILY #0 tabs 07/18/24 amoxicillin 875 mg-potassium clavulanate 125 mg tablet 1 tab PO BID #1 TAB 07/18/24 arginine 7 gram-glutam 7 gram-CaHMB 1.5 [id number]-min oral pwd pkt (Champ (with collagen)) 1 packet PO BIDCM #0 ea 07/18/24 doxycycline hyclate 100 mg tablet 100 mg PO BID ANTIBIOTIC #1 TAB 07/18/24 heparin (porcine) 5,000 unit/mL injection solution 5,000 unit subcut Q8 #0 mL 07/18/24 menthol 0.44 %-zinc oxide 20.6 % topical ointment (Calmoseptine) 1 applic topical BID #0 grams 07/18/24 nystatin 100,000 unit/gram topical powder (Nyamyc) 1 applic topical BID #0 grams 07/18/24 sennosides 8.6 mg-docusate sodium 50 mg tablet (Stimulant Laxative Plus) 2 tab PO BID #0 tabs 07/18/24 sodium hypochlorite 0.25 % solution (HySept) See Protocol topical DAILY #0 mL 07/18/24 Hospital Course Operations - (1. Excision of fifth metatarsal head Right foot 2. Excision of fifth metatarsal head Left foot 3. Debridement of ulceration to the level of the muscle right foot 4. Debridement of ulceration to the level of muscle left foot 5. Application of advanced wound care product, Axiofill right foot) Procedures - (Foot x-ray) Summary of Care Provided Minutes Spent on Discharge: 39 Hospital Course: Patient is a 74-year-old female who is a longtime diabetic and presented to the emergency department [facility] on 07/14/2024 due to bilateral fifth metatarsal head ulcerations. She had been following at the wound care center with Dr. Erwin for her wounds for about 4 weeks and prior to the wound center had been treated in the office for about 3 weeks. She had undergone serial debridements, LEAS and venous studies and had been on 6 weeks of oral antibiotics with application of EpiFix grafting to the right foot in preparation for HBO dive however ulceration continued to worsen with breakdown to exposure of the fifth metatarsal head with new ulceration of the left foot as well. She was sent to the emergency department for admission by podiatry. Vital signs were unremarkable on presentation. Her CBC on presentation was consistent with her baseline. She did have an elevated ESR at 67 and she was admitted to to the medical floor to receive IV antibiotics and podiatry was consulted. She was placed on vancomycin and Zosyn and evaluated by podiatry and was taken to the OR on 07/14/2024 at which time he performed an excision of fifth metatarsal head Right foot, excision of fifth metatarsal head Left foot, debridement of ulceration to the level of the muscle right foot, debridement of ulceration to the level of muscle left foot and application of advanced wound care product, Axiofill right foot. Infectious disease and vascular surgery were consulted however vascular surgery was not available during her hospitalization and she will follow-up with Dr. Figueroa as an outpatient after discharge in the next 1 to 2 weeks. She was seen by infectious disease and they recommended continuation of antibiotics for 7 days postdischarge with doxycycline and Augmentin. Cultures will be followed and if there is any remaining infection the course may need to be extended however at this time the plan is for 7 days. She is to be nonweightbearing except for transfers at which time she may be heel weightbearing bilaterally with no weightbearing on the forefoot per podiatry. Betadine soaked Adaptic are to be placed to the incision sites, Dakin's placed to left foot ulceration site, dry sterile dressing placed to left and right foot and the dressings may be changed to daily. She was maintained on her own medications throughout her hospital course. Her renal function had slight elevation so we have held her Lasix and plan to do so for about 48 hours with the intent to restart it on 07/21/2024. We have made a referral to the wound center and she is to follow-up on , 07/20/2024. She is also to follow-up with vascular surgery within the next 2 weeks and her primary care physician within 1 week after discharge from assisted facility. We will have a repeat CBC and BMP to be obtained in 5 to 7 days. Discharge diagnoses: Diabetic left foot wound infection DM-2 CAD Ischemic cardiomyopathy Essential hypertension Hyperlipidemia CKD stage IV Chronic anemia History of stroke Depression Morbid obesity Physical Exam Const alert, oriented x3, no apparent distress, no limitations and well nourished; Negative for average body habitus or healthy appearing Constitutional Narrative: Morbidly obese, older, white female, lying in bed being cleaned up by nursing director, nursing is at the bedside as well, patient is not toxic appearing and appears comfortable General Appearance: cooperative, comfortable, well kempt and well developed Exam Limitations: no limitations Nutritional Appearance: morbidly obese HEENT normocephalic, head/scalp atraumatic, hearing grossly normal bilaterally, moist oral mucous membranes and oropharynx normal HEENT Narrative: Mallampati 3-4, no thrush Eyes PERRL and EOMs intact bilaterally; Negative for conjunctivae normal Eyes Narrative: Conjunctiva pallor bilaterally, no scleral icterus Neck no lymphadenopathy and supple Neck Narrative: Neck is short and thick, trachea midline Resp normal respiratory effort, normal air movement, no retractions, no use of accessory muscles and clear to auscultation bilaterally Resp Narrative: on room air. Auscultation: Negative for rales, rhonchi or wheezes Cardio regular rate, regular rhythm, S1 normal heart sound, S2 normal heart sound, no murmurs, no rub, no gallops and no clicks GI normal to inspection, nondistended, normoactive bowel sounds, soft to palpation, non-tender and non-distended GI Narrative: Large protuberant abdomen Extremity Extremity Narrative: Bilateral lower extremity edema with both legs wrapped in dressings with Addy bandages in place as well, no clubbing or cyanosis noted in the upper extremities, no upper extremity edema noted Skin skin turgor normal and no jaundice Skin Narrative: both lower extremities wrapped in bandage--> images from wound nurse noted, skin is pale Neuro oriented x3 and moves all extremities Neuro Narrative: Marked limited mobility even at baseline Psych thought process normal, cooperative and affect normal Psych Narrative: Very pleasant, interacts appropriately Appearance: appropriate Weight / BMI Weight Weight: 118.6 kg Body Mass Index (BMI) 42.0 ABG / Lab / Microbiology Data 10/22/24 07:08 07/18/24 07:08 Laboratory: Laboratory Results - last 24 hr 07/17/24 16:14: POC Glucose 254 H 07/17/24 22:24: POC Glucose 226 H 07/18/24 03:05: Vancomycin Trough 19.6 H 07/18/24 06:07: POC Glucose 134 H 07/18/24 07:08: WBC 6.7, RBC 3.13 L, Hgb 7.7 L, Hct 25.9 L, MCV 82.7, MCH 24.6 L, MCHC 29.7 L, RDW Std Deviation 44.7 H, RDW Coeff of Bulmaro 14.9 H, Plt Count 261, MPV 9.5, Immature Gran % (Auto) 0.600, Neut % (Auto) 70.3 H, Lymph % (Auto) 14.8 L, Nash % (Auto) 10.9 H, Eos % (Auto) 2.4, Baso % (Auto) 1.0, Absolute Neuts (auto) 4.7, Absolute Lymphs (auto) 0.99, Nucleated RBC % 0, Sodium 143, Potassium 4.0, Chloride 107, Carbon Dioxide 30.0, Anion Gap 6, BUN 41 H, Creatinine 2.19 H, Estim Creat Clear Calc 28.64, Est GFR (MDRD) Af Amer 28 L, Est GFR (MDRD) Non-Af 23 L, BUN/Creatinine Ratio 18.7, Glucose 143 H, Calcium 9.1 07/18/24 11:55: POC Glucose 211 H Meaningful Use Info Meaningful Use Meaningful Use Diagnoses (Choose all that apply): None applicable Ischemic Stroke Statin Dosing Therapy Reference: STATIN DOSE THERAPY REFERENCE: * Patients > 75 years receive moderate or high dose statin therapy. * Patients 75 years or YOUNGER should receive HIGH intensity statin dose unless contraindicated. You will be required to document reason for non-treatment if statin daily dose does not meet guidelines. HIGH DOSE STATIN THERAPY DAILY Atorvastatin > than or = to 40 mg Rosuvastatin > than or = to 20 mg Amlodipine + Atorvastatin > than or = to 2.5/40 mg Ezetimibe + Simvastatin 10/80 mg Simvastatin 80mg Discharge Plan Admission Admit Date/Time: 07/13/24 15:12 Primary Reason for Your Visit: Bilateral diabetic foot wounds Attending Provider: Mariza Rowley Primary Care Provider: Nabor James Consulting Providers: Paul Erwin; Zachery Gomez; Eduardo Figueroa; Ana Laura Hastings; Juancarlos Ramirez Discharge Orders/Prescriptions Prescriptions: New acetaminophen 325 mg Tablet 650 mg PO Q6H PRN PRN (Reason: Pain 1-10 Or Fever >100.7) Qty: 0 0RF sennosides-docusate sodium [Stimulant Laxative Plus] 8.6-50 mg Tablet 2 tab PO BID Qty: 0 0RF amlodipine 5 mg Tablet 5 mg PO DAILY Qty: 0 0RF nystatin [Nyamyc] 100,000 unit/gram Powder 1 applic topical BID Qty: 0 0RF Protocol: *Topical Application Instructions APPLICATION INSTRUCTIONS: folds heparin (porcine) 5,000 unit/mL Solution 5,000 unit subcut Q8 Qty: 0 0RF HySept 0.25 % Solution See Protocol topical DAILY Qty: 0 0RF Protocol: *Topical Application Instructions APPLICATION INSTRUCTIONS: left plantar foot menthol-zinc oxide [Calmoseptine] 0.44-20.6 % Ointment 1 applic topical BID Qty: 0 0RF Protocol: *Topical Application Instructions APPLICATION INSTRUCTIONS: buttocks Champ (with collagen) 7-7-1.5 gram Powder In Packet 1 packet PO BIDCM Qty: 0 0RF amoxicillin-pot clavulanate 875-125 mg tablet 1 tab PO BID Qty: 1 0RF Continued aspirin [Adult Aspirin Regimen] 81 mg tablet,delayed release (DR/EC) 81 mg PO DAILY Levemir FlexTouch U100 Insulin 100 unit/mL (3 mL) insulin pen 60 unit SUBCUT BREAKFAST Patient Comments: INJECT 80 UNITS SUBCUTANEOUSLY ONCE DAILY WITH BREAKFAST carvedilol 25 mg tablet 25 mg PO BID Qty: 180 3RF Rx Instructions: must administer with a meal/food dapagliflozin propanediol [Farxiga] 10 mg tablet 10 mg PO DAILY Qty: 90 3RF atorvastatin 40 mg tablet 40 mg PO QHS valsartan 160 mg tablet 160 mg PO DAILY (DME) Accu-Chek Alvina Plus test strp Strip MISCELLANEOUS fluoxetine 10 mg capsule 10 mg PO DAILY insulin lispro [Humalog KwikPen Insulin] 100 unit/mL Insulin Pen 25 unit subcut ACHS Protocol: 1. Sliding Scale Insulin Low Dosing Condition: 150-224 mg/dl = 1 unit Condition: 225-299 mg/dl = 2 units Condition: 300-374 mg/dl = 3 units Condition: 375-499 mg/dl = 4 units Condition: Greater than 449 call physician Protocol Text: - Use for Total Daily Dose of Insulin 15-27 units - Thin, elderly, renal patients LOW DOSING ALGORITHM doxycycline hyclate 100 mg tablet 100 mg PO BID Qty: 1 0RF Held furosemide 40 mg tablet 80 mg PO DAILY Hold Instructions: Resume on 07/21/24. metolazone 5 mg tablet 5 mg PO DAILY Hold Instructions: Resume on 07/21/24. Discontinued ciprofloxacin HCl 500 mg tablet 500 mg PO BID Rx Instructions: TAKE ONE TABLET BY MOUTH TWICE DAILY FOR 14 DAYS START DATE: END DATE: Other Ambulatory Orders: Wound Care Referral (Routine) Timeframe: 20240720 Facility: [facility] - Location: Wound Healing Center Ordered By: Dr. Mariza Rowley Referrals / Follow Up: Eduardo Figueroa MD [Med Staff - Active Staff] - See Referral Note (1-2 weeks) Nabor James MD [Primary Care Provider] - Within 1 Week (After discharge from skilled facility) Paul Erwin DPM [Med Staff - Active Staff] - See Referral Note ( at the wound center) Disposition Disposition (needs filled in before D/C Order can be placed): Long Term Facility Charges/Coding Visit Charges Inpatient E&M: 12629 SNF Disch >30 Min
--- NOTE | 2024-07-18 13:26 | PHA.DC_ITS ---
Pharmacy [place] Med Reconciliation Pharmacy Service has performed discharge medication reconciliation for this patient. The patient's discharge medication list was reviewed for discrepancies and discrepancies were resolved. Medications at Discharge Home Medications atorvastatin 40 mg tablet 40 mg PO QHS CHOLESTEROL 02/22/22 valsartan 160 mg tablet 160 mg PO DAILY BLOOD PRESSURE 02/22/22 aspirin 81 mg tablet,delayed release (Adult Aspirin Regimen) 81 mg PO DAILY HEART HEALTH 06/03/22 carvedilol 25 mg tablet 25 mg PO BID HEART #180 tabs 07/12/24 dapagliflozin propanediol 10 mg tablet (Farxiga) 10 mg PO DAILY DIABETES #90 tabs 07/12/24 furosemide 40 mg tablet 80 mg PO DAILY EDEMA 07/12/24 insulin detemir U-100 100 unit/mL (3 mL) subcutaneous pen (Levemir FlexTouch U- 100 Insulin) 60 unit subcut BREAKFAST 07/12/24 blood sugar diagnostic (Accu-Chek Alvina Plus test strips) 07/13/24 fluoxetine 10 mg capsule 10 mg PO DAILY 07/13/24 insulin lispro 100 unit/mL subcutaneous pen (Humalog KwikPen (U-100) Insulin) 25 unit subcut ACHS 07/13/24 metolazone 5 mg tablet 5 mg PO DAILY 07/13/24 acetaminophen 325 mg tablet 650 mg (2 x 325 mg) PO Q6H PRN PRN Pain 1-10 Or Fever >100.7 #0 tabs 07/18/24 amlodipine 5 mg tablet 5 mg PO DAILY #0 tabs 07/18/24 amoxicillin 875 mg-potassium clavulanate 125 mg tablet 1 tab PO BID #1 TAB 07/18/24 arginine 7 gram-glutam 7 gram-CaHMB 1.5 [id number]-me-min oral pwd pkt (Champ (with collagen)) 1 packet PO BIDCM #0 ea 07/18/24 doxycycline hyclate 100 mg tablet 100 mg PO BID ANTIBIOTIC #1 TAB 07/18/24 heparin (porcine) 5,000 unit/mL injection solution 5,000 unit subcut Q8 #0 mL 07/18/24 menthol 0.44 %-zinc oxide 20.6 % topical ointment (Calmoseptine) 1 applic topical BID #0 grams 07/18/24 nystatin 100,000 unit/gram topical powder (Nyamyc) 1 applic topical BID #0 grams 07/18/24 sennosides 8.6 mg-docusate sodium 50 mg tablet (Stimulant Laxative Plus) 2 tab PO BID #0 tabs 07/18/24 sodium hypochlorite 0.25 % solution (HySept) See Protocol topical DAILY #0 mL 07/18/24
--- NOTE | 2024-07-18 14:47 | TREXTCAR_ITS ---
Diet Diet Order/Speech Therapy: 07/14/24 19:08 Diet: Consistent Carb - Calorie Controlled Dietary Modifications:: Cardiac / Heart Healthy Fluid restriction:: 1750 mL How many daily calories?: 1800 calorie Routine Orders/Code Status Suppository Frequency: Daily PRN O2 Frequency: PRN Keep PO Greater than or Equal to (%): 89 Routine Lab Work: CBC (5 to 7 days) and BMP (5 to 7 days) Code Status: Full Code Wound(s) right foot: Wound Type: Neuropathic/Diabetic Foot Ulcer Left lateral foot: Wound Type: Neuropathic/Diabetic Foot Ulcer Dressing Change: Dakins moistened gauze Right Lateral foot: Wound Type: Neuropathic/Diabetic Foot Ulcer Dressing Change: dry dressing tip of nose: Wound Type: Abrasion Suggestions for Active Care Change Position every (hours): 2 Hours to sit in a chair: 2 Times a day to sit in chair: 2 Therapies Weight Bearing: Non weight bearing (May bear weight through bilateral heels for transfers ONLY) Extremity Affected:: Bilateral Lower Physical Therapy: Eval and Treat Occupational Therapy: Eval and Treat Problem/Diagnosis (1) Cellulitis of left lower limb: Status: Acute Code(s): L03.116 - Cellulitis of left lower limb (2) Non-pressure chronic ulcer of other 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: Status: Chronic Code(s): L97.523 - Non-pressure chronic ulcer of other 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 Plan Patient needs to follow-up with wound care at the wound care center on of this week Allergies/Procedures Done in Hospital Allergies No Known Allergies Allergy (Verified 07/13/24 12:39) Type of Care/Length of Stay Estimated LOS: Convalescent Care Less Than 30 days Type of Care Needed: Skilled Rehab Potential: Fair Prognosis: Fair Additional Orders/Day of Discharge Day of Discharge: 07/18/24 Dietary and Speech Recommendations Dietitian Recommendations/Changes: Change diet to 1800 jim Cardiac diet w/ Fluid Restriction per MD Will order Champ bid w/ medpass to help w/ wound healing Will follow and monitor for changes in pt nutritional status and make rec/provide diet education as indicated. Discharge Plan Admission Admit Date/Time: 07/13/24 15:12 Primary Reason for Your Visit: Bilateral diabetic foot wounds Attending Provider: Mariza Rowley Primary Care Provider: Nabor James Consulting Providers: Paul Erwin; Zachery Gomez; Eduardo Figueroa; Ana Laura Hastings; Juancarlos Ramirez Discharge Orders/Prescriptions Prescriptions: New acetaminophen 325 mg Tablet 650 mg PO Q6H PRN PRN (Reason: Pain 1-10 Or Fever >100.7) Qty: 0 0RF sennosides-docusate sodium [Stimulant Laxative Plus] 8.6-50 mg Tablet 2 tab PO BID Qty: 0 0RF amlodipine 5 mg Tablet 5 mg PO DAILY Qty: 0 0RF nystatin [Nyamyc] 100,000 unit/gram Powder 1 applic topical BID Qty: 0 0RF Protocol: *Topical Application Instructions APPLICATION INSTRUCTIONS: folds heparin (porcine) 5,000 unit/mL Solution 5,000 unit subcut Q8 Qty: 0 0RF HySept 0.25 % Solution See Protocol topical DAILY Qty: 0 0RF Protocol: *Topical Application Instructions APPLICATION INSTRUCTIONS: left plantar foot menthol-zinc oxide [Calmoseptine] 0.44-20.6 % Ointment 1 applic topical BID Qty: 0 0RF Protocol: *Topical Application Instructions APPLICATION INSTRUCTIONS: buttocks Champ (with collagen) 7-7-1.5 gram Powder In Packet 1 packet PO BIDCM Qty: 0 0RF amoxicillin-pot clavulanate 875-125 mg tablet 1 tab PO BID Qty: 1 0RF Continued aspirin [Adult Aspirin Regimen] 81 mg tablet,delayed release (DR/EC) 81 mg PO DAILY Levemir FlexTouch U100 Insulin 100 unit/mL (3 mL) insulin pen 60 unit SUBCUT BREAKFAST Patient Comments: INJECT 80 UNITS SUBCUTANEOUSLY ONCE DAILY WITH BREAKFAST carvedilol 25 mg tablet 25 mg PO BID Qty: 180 3RF Rx Instructions: must administer with a meal/food dapagliflozin propanediol [Farxiga] 10 mg tablet 10 mg PO DAILY Qty: 90 3RF atorvastatin 40 mg tablet 40 mg PO QHS valsartan 160 mg tablet 160 mg PO DAILY (DME) Accu-Chek Alvina Plus test strp Strip MISCELLANEOUS fluoxetine 10 mg capsule 10 mg PO DAILY insulin lispro [Humalog KwikPen Insulin] 100 unit/mL Insulin Pen 25 unit subcut ACHS Protocol: 1. Sliding Scale Insulin Low Dosing Condition: 150-224 mg/dl = 1 unit Condition: 225-299 mg/dl = 2 units Condition: 300-374 mg/dl = 3 units Condition: 375-499 mg/dl = 4 units Condition: Greater than 449 call physician Protocol Text: - Use for Total Daily Dose of Insulin 15-27 units - Thin, elderly, renal patients LOW DOSING ALGORITHM doxycycline hyclate 100 mg tablet 100 mg PO BID Qty: 1 0RF Held furosemide 40 mg tablet 80 mg PO DAILY Hold Instructions: Resume on 07/21/24. metolazone 5 mg tablet 5 mg PO DAILY Hold Instructions: Resume on 07/21/24. Discontinued ciprofloxacin HCl 500 mg tablet 500 mg PO BID Rx Instructions: TAKE ONE TABLET BY MOUTH TWICE DAILY FOR 14 DAYS START DATE: END DATE: Other Ambulatory Orders: Wound Care Referral (Routine) Timeframe: 20240720 Facility: [facility] - Location: Wound Healing Center Ordered By: Dr. Mariza Rowley Referrals / Follow Up: Eduardo Figueroa MD [Med Staff - Active Staff] - See Referral Note (1-2 weeks) Nabor James MD [Primary Care Provider] - Within 1 Week (After discharge from skilled facility) Paul Erwin DPM [Med Staff - Active Staff] - See Referral Note ( at the wound center) Disposition Disposition (needs filled in before D/C Order can be placed): Custodial Facility
--- NOTE | 2024-07-18 14:47 | CASEMGMT ---
Social Work Precert has been obtained.? Physician updated and pt is ready for discharge today.? 7000 convalescent form completed in [facility]. SW met with pt and they are agreeable to discharge plan as stated above.? DCA notified of discharge. Disposition:[facility], skilled level of care under convalescent stay. ROSE Holliday
[2024-07-18 14:58] VITALS: BP 137/53; PULSE 67; RESP 18; TEMP 36.4; O2SAT 98
--- NOTE | 2024-07-18 16:25 | CASEMGMT ---
Discharge Planning Discharge orders, signed med list, and transport time sent to [facility] via [facility]. Physicians will transport patient by wheelchair at 8p. Nursing, SW, patient, and her updated. Mary Spears DC Planning Asst.
[2024-07-18 17:45] LABS: Bedside Glucose 186 mg/dL (74-106)
--- NOTE | 2024-07-18 18:47 | NURSING ---
RE[PRT CALLED TO [facility]
[2024-07-18 18:53] VITALS: BP 152/85; PULSE 77; RESP 18; TEMP 36.3; O2SAT 92
--- NOTE | 2024-07-18 20:07 | EX.PCM.CON.S ---
Assessment & Plan Assessment/Plan (1) Non-pressure chronic ulcer of other part of right foot with necrosis of muscle: (2) Non-pressure chronic ulcer of other 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: (3) Type 2 diabetes mellitus with foot ulcer: (4) PAD (peripheral artery disease): PLAN: Plan Arterial studies suggest mild PAD with sufficient inflow to expect to heal current wounds/surgical interventions; however, given her diabetic status will want to monitor closely. Will have her follow-up in the office as an outpatient in 1-2 weeks and if any concern for delayed healing then given her CKD would plan for angiogram with CO2 on an outpatient basis. HPI Consult Data Date of Consult: 07/18/24 HPI Narrative HPI Narrative: PRICILA WALDROP, is a 74 F who presented to the [facility] ER 07/13/24 with infection to bilateral diabetic foot ulcerations. She has had the R 5th metatarsal head ulceration for a couple months and the L 5th metatarsal head ulceration for a few weeks. Dr. Erwin performed excision of R fifth metatarsal head, excision of L fifth metatarsal head, debridement of bilateral foot ulcerations, and application of axiofil 07/14/24. To this point, incision sites are without signs of ischemia per review of pictures in chart and podiatry notes. She completed outpatient arterial study with R RANDALL 0.93, TBI 0.46, L RANDALL 0.96, TBI 0.53 with biphasic waveforms throughout. She also had venous duplex showing R SFJ/GSV/ASV and L GSV reflux. She has CKD; today Cr 2.19 and GFR 23. Her medical history is otherwise significant for T2DM (A1c 6.0), HFrEF (recent EF 35%), HLD, HTN, CAD s/p PCI. She takes ASA and statin daily without issue. FORMERLY [facility], 1928–1983 Medical History Dyspnea Ischemic cardiomyopathy History of CVA (cerebrovascular accident) Atherosclerosis of coronary artery without angina pectoris Type 2 diabetes mellitus Secondary pulmonary arterial hypertension Chronic combined systolic and diastolic CHF (congestive heart failure) Essential hypertension Obesity Chronic kidney disease (CKD) GI bleed (01/2022) Anemia Diabetes mellitus type 2 in obese Hyperlipidemia Home Medications ?Medication ?Instructions ?Recorded ?Last Taken ?Type atorvastatin 40 mg tablet 40 mg PO QHS CHOLESTEROL 02/22/22 Unknown History valsartan 160 mg tablet 160 mg PO DAILY BLOOD PRESSURE 02/22/22 Unknown History aspirin 81 mg tablet,delayed 81 mg PO DAILY HEART HEALTH 06/03/22 Unknown History release (Adult Aspirin Regimen) carvedilol 25 mg tablet 25 mg PO BID HEART #180 tabs 07/12/24 Unknown Rx dapagliflozin propanediol 10 mg 10 mg PO DAILY DIABETES #90 tabs 07/12/24 Unknown Rx tablet (Farxiga) furosemide 40 mg tablet 80 mg PO DAILY EDEMA 07/12/24 Unknown History insulin detemir U-100 100 unit/mL 60 unit subcut BREAKFAST 07/12/24 Unknown History (3 mL) subcutaneous pen (Levemir FlexTouch U-100 Insulin) blood sugar diagnostic (Accu-Chek 07/13/24 Unknown History Alvina Plus test strips) fluoxetine 10 mg capsule 10 mg PO DAILY 07/13/24 Unknown History insulin lispro 100 unit/mL 25 unit subcut ACHS 07/13/24 Unknown History subcutaneous pen (Humalog KwikPen (U-100) Insulin) metolazone 5 mg tablet 5 mg PO DAILY 07/13/24 Unknown History acetaminophen 325 mg tablet 650 mg (2 x 325 mg) PO Q6H PRN PRN 07/18/24 Unknown Rx Pain 1-10 Or Fever >100.7 #0 tabs amlodipine 5 mg tablet 5 mg PO DAILY #0 tabs 07/18/24 Unknown Rx amoxicillin 875 mg-potassium 1 tab PO BID #1 TAB 07/18/24 Unknown Rx clavulanate 125 mg tablet arginine 7 gram-glutam 7 1 packet PO BIDCM #0 ea 07/18/24 Unknown Rx gram-CaHMB 1.5 [id number]-min oral pwd pkt (Champ (with collagen)) doxycycline hyclate 100 mg tablet 100 mg PO BID ANTIBIOTIC #1 TAB 07/18/24 Unknown Rx heparin (porcine) 5,000 unit/mL 5,000 unit subcut Q8 #0 mL 07/18/24 Unknown Rx injection solution menthol 0.44 %-zinc oxide 20.6 % 1 applic topical BID #0 grams 07/18/24 Unknown Rx topical ointment (Calmoseptine) nystatin 100,000 unit/gram topical 1 applic topical BID #0 grams 07/18/24 Unknown Rx powder (Nyamyc) sennosides 8.6 mg-docusate sodium 2 tab PO BID #0 tabs 07/18/24 Unknown Rx 50 mg tablet (Stimulant Laxative Plus) sodium hypochlorite 0.25 % See Protocol topical DAILY #0 mL 07/18/24 Unknown Rx solution (HySept) Allergy/AdvReac Type Severity Reaction Status Date / Time No Known Allergies Allergy Verified 07/13/24 12:39 Family History Father Diabetes Heart disease CAD (coronary artery disease) Mother Heart disease Surgical History History of coronary artery stent placement (09/2013) H/O vein stripping Status post angioplasty with stent Social History household members: family Smoking Status: Former smoker how long ago did patient quit smokin years ago alcohol intake: never substance use type: does not use caffeine: Yes Physical Exam Const alert, oriented x3 and no apparent distress General Appearance: cooperative and comfortable HEENT normocephalic, head/scalp atraumatic, hearing grossly normal bilaterally, external ears normal and external nose normal Eyes General Eye: normal appearance of both eyes Neck General: normal visual inspection and trachea midline Resp normal respiratory effort, no retractions and no use of accessory muscles Effort and Inspection: able to speak in complete sentences Cardio regular rate and regular rhythm Extremity Extremity Narrative: Bilateral feet with dressings in place. Wound care nurse pictures reviewed, sutures intact and skin edges appear viable, wound bases with granulation tissue. Neuro CN's II-XII intact bilaterally, moves all extremities and no focal motor deficits Psych mental status grossly normal, cooperative, affect normal and speech normal Lab / Micro Data 07/18/24 07:08 07/18/24 07:08 Labs: Laboratory Results - last 24 hr 07/17/24 22:24: POC Glucose 226 H 07/18/24 03:05: Vancomycin Trough 19.6 H 07/18/24 06:07: POC Glucose 134 H 07/18/24 07:08: WBC 6.7, RBC 3.13 L, Hgb 7.7 L, Hct 25.9 L, MCV 82.7, MCH 24.6 L, MCHC 29.7 L, RDW Std Deviation 44.7 H, RDW Coeff of Bulmaro 14.9 H, Plt Count 261, MPV 9.5, Immature Gran % (Auto) 0.600, Neut % (Auto) 70.3 H, Lymph % (Auto) 14.8 L, [place] % (Auto) 10.9 H, Eos % (Auto) 2.4, Baso % (Auto) 1.0, Absolute Neuts (auto) 4.7, Absolute Lymphs (auto) 0.99, Nucleated RBC % 0, Sodium 143, Potassium 4.0, Chloride 107, Carbon Dioxide 30.0, Anion Gap 6, BUN 41 H, Creatinine 2.19 H, Estim Creat Clear Calc 28.64, Est GFR (MDRD) Af Amer 28 L, Est GFR (MDRD) Non-Af 23 L, BUN/Creatinine Ratio 18.7, Glucose 143 H, Calcium 9.1 07/18/24 11:55: POC Glucose 211 H 07/18/24 16:23: POC Glucose 186 H Charges/Coding Visit Charges Inpatient E&M: 57986 Init Hosp L1
[2024-07-18] MEDS: Atorvastatin Calcium 40 MG Tablet PO (21:58)
[2024-07-19 06:50] LABS: Bedside Glucose 113 mg/dL (74-106)
== END 2024-07-18 23:17 | disposition skilled nursing facility (03) | DRG 623 ==
LOC: ED 15:45 → MS3 15:59
PROVIDERS: Student in an Organized Health Care Education/Training Program; Admitting Provider Internal Medicine; Emergency Provider Emergency Medicine; PCP Family Medicine; Referring Provider Emergency Medicine; Visit Provider Internal Medicine
PROC: 0JBR0ZZ Excision of Left Foot Subcutaneous Tissue and Fascia, Open Approach (ICD-10-PCS; principal; 2024-07-14 14:45)
DX: E11.621 Type 2 diabetes mellitus with foot ulcer (principal); I50.42 Chronic combined systolic (congestive) and diastolic (congestive) heart failure; I13.0 Hypertensive heart and chronic kidney disease with heart failure and stage 1 through stage 4 chronic kidney disease, or unspecified chronic kidney disease; Z68.41 Body mass index [BMI] 40.0-44.9, adult; M86.171 Other acute osteomyelitis, right ankle and foot; L03.116 Cellulitis of left lower limb; L03.115 Cellulitis of right lower limb; D63.1 Anemia in chronic kidney disease; N18.4 Chronic kidney disease, stage 4 (severe); E11.649 Type 2 diabetes mellitus with hypoglycemia without coma; F32.A Depression, unspecified; L97.523 Non-pressure chronic ulcer of other 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; E11.22 Type 2 diabetes mellitus with diabetic chronic kidney disease; E78.5 Hyperlipidemia, unspecified; E11.42 Type 2 diabetes mellitus with diabetic polyneuropathy; Z79.4 Long term (current) use of insulin; I25.5 Ischemic cardiomyopathy; I25.10 Atherosclerotic heart disease of native coronary artery without angina pectoris; E66.01 Morbid (severe) obesity due to excess calories; E11.628 Type 2 diabetes mellitus with other skin complications; E11.51 Type 2 diabetes mellitus with diabetic peripheral angiopathy without gangrene; L97.513 Non-pressure chronic ulcer of other part of right foot with necrosis of muscle; I87.2 Venous insufficiency (chronic) (peripheral); E11.69 Type 2 diabetes mellitus with other specified complication; Z95.5 Presence of coronary angioplasty implant and graft; Z79.2 Long term (current) use of antibiotics; Z79.82 Long term (current) use of aspirin; Z79.899 Other long term (current) drug therapy; Z86.73 Personal history of transient ischemic attack (TIA), and cerebral infarction without residual deficits; Z87.891 Personal history of nicotine dependence
CPT/HCPCS: 36415; 73630; 76000; 80048; 80202; 82962; 83036; 83735; 84100; 85025; 85652; 86140; 88304; 88311; 93005; 94668; 97162; 97166; 97530; 97802; 99213; 99285; J7040; A4216; G0463; J1940; J2405

== ENCOUNTER 2024-07-27 08:30 | Outpatient (RCR) | payer MEDICARE, SELFPAY ==
[2024-06-27 00:06] VITALS: BP 147/69; PULSE 76; RESP 18; TEMP 35.5; BMI 42.7
[2024-06-29 10:35] VITALS: BP 130/39; PULSE 69; RESP 18; TEMP 35.9; BMI 42.7
--- NOTE | 2024-06-29 18:57 | PCM.WC.PN ---
History of Present Illness Date of Service: 06/29/24 Chief Complaint: Plantar lateral fifth metatarsal head ulceration right foot History of Wound: Patient is a 74-year-old female with PMHx of DM type II with peripheral polyneuropathy, CKD, morbid obesity, HTN, hyperlipidemia, and CHF. Patient first presented to office in early April 2024 accompanied by her son who is concerned of ulceration to the plantar aspect of the fifth metatarsal head of the right foot. He states the ulceration has been present for 2 weeks and they have been trying to dress the ulceration site at home. Son and have been assisting in dressing changes. Her PCP at that time started her on Augmentin. She reports completing the Augmentin. She did undergo debridement in office and was also started on oral doxycycline. She was initially using Judi and dressing changes however this was demonstrating no improvement to the ulcerative site and thus she was changed to Dakin's and instructed to perform the dressing change daily. She completed a round of doxycycline with some improvement and thus doxycycline was extended and ciprofloxacin was also added. Discussed referral to the wound care center for applications of advanced wound care product. She reports she is still taking the doxycycline and ciprofloxacin and feels well doing so. She currently denies N/V/F/chills. Denies further complaints. Subjective Subjective This is a 74-year-old female who follows up today for continued care of a subfifth metatarsal head ulceration of the right foot. She is accompanied by her son. Patient does not ambulate well and is assisted by walker. She continues offloading with surgical shoe to the right foot with 5th metatarsal head cut out. Visiting nursing continues to assist in dressing changes. Graft product remains in place to the ulcerative bed. She continues to take the oral antibiotic as instructed and is nearing completion. Denies constitutional symptoms. Denies further complaints. Objective Data Objective Data Vital Signs: Vital Signs Temp Pulse Resp BP O2 Del Method 96.7 F L 69 18 130/39 H Room Air 06/29/24 10:35 06/29/24 10:35 06/29/24 10:35 06/29/24 10:35 06/29/24 10:35 Oxygen Delivery Method Room Air Weight: 120.202 kg Body Mass Index (BMI) 42.7 Physical Exam Const alert, oriented x3 and no apparent distress General Appearance: cooperative Nutritional Appearance: morbidly obese HEENT Head and Scalp: normal to inspection Eyes General Eye: normal appearance of both eyes Neck General: normal visual inspection Lymph Lymphatic: no lymphadenopathy noted and no lymphedema noted Resp normal respiratory effort Cardio regular rate and regular rhythm Extremity normal capillary refill and no calf tenderness Extremity Narrative: Right lower extremity: Vascular: DP and PT pulses weakly palpable. CFT less than 5 seconds to the digits. Temperature gradient is normal. Hair growth is absent to digits. Neurologic: Light touch sensation diminished. Gross sensation intact. Protective sensation absent. Musculoskeletal: Muscle strength 4 of 5 due to generalized weakness as patient does not ambulate much. Decreased range of motion of the ankle joint dorsiflexion with the knee extended without pain or crepitus. Decreased range of motion of the STJ, MTJ, and first MTPJ without pain or crepitus. No pain to palpation around ulcerative site subfifth metatarsal head. Dermatologic: There is a full-thickness ulceration noted to the plantar lateral fifth metatarsal head of the right foot. Ulceration does probe close to bone of the fifth metatarsal head. Ulceration demonstrates mixed fibrogranular layer with some serosanguineous drainage. Erythema is to the dorsal foot resolved and edema is improving. No malodor noted. No palpable fluctuance/bogginess noted, no soft tissue crepitus, no purulent drainage. Skin no rashes or lesions noted, skin turgor normal and no jaundice General Skin Exam: venous stasis and dermatitis Neuro moves all extremities Debridement Note Debridement Note Wound debrided: Subfifth metatarsal right foot Laterality: Right Wound Grade/Stage: Wyatt stage III Type of Debridement: Excisional debridement Anesthesia Used: 5% Lidocaine Gel Depth: Down to and including healthy tissue and in the subcutaneous layer Percentage of wound debrided: 100 Instrument Used: 5mm curette Tissue Removed: Fibrous, devitalized subcutaneous, biofilm, slough Severity: Fat Layer Exposed Amount of bleeding with debridement: Mild Bleeding Controlled with: Compression and gauze Patient tolerated procedure: Patient tolerated procedure well Post-Debridement Measurements and Additional Note: Post-Debridement Measurements/Treatment WC - Nurse 1 - General Ulcer Assessment Start: 06/29/24 10:35 Freq: Status: Active Protocol: [email or web address] Activity Type Activity Date Activity User E-sign Co-sign Detail Recorded Client Recorded Date Recorded By Document 06/29/24 10:35 KW [id number] 06/29/24 10:49 KW 06/29/24 10:35 - Today's Visit Information Type of service Follow-up Visit (Physician/[facility] [employer] ) Arrival Mode Wheelchair Patient Identification Verified (Name & Yes ) Finger Stick Blood Sugar(mg/dl) (if 148 indicated): Blood Sugar Stated by Patient Height and Weight Weight Measurement Method Estimated by Patient Body Mass Index (BMI) 42.7 BMI Classification Obese Vital Signs Temperature (97.8 F-99.1 F) 96.7 F L Temperature Source Temporal Pulse Rate (60-100) 69 Pulse Location Monitor Respiratory Rate (12-18) 18 Respiratory rate source Observation Oxygen Delivery Method Room Air Blood Pressure (90/60-120/80) 130/39 H Blood Pressure Mean (mm Hg) 69 Source Monitor Position Semi-Fowlers Blood Pressure Location Right Forearm History Since Last Visit- (Skip if this is Patient's initial visit) Have you changed medications since your No last visit? Any new allergies or adverse reactions No Had a fall/change in ADL's that may No increase risk of falls Signs or symptoms of abuse and/or No neglect since last visit Have you been in the hospital since your No last visit? Has dressing in place as prescribed Yes Has compression in place as prescribed Yes Has offloadiing in place as prescribed N/A Experienced any changes in pain level or No management Left Footwear Regular Shoe Right Footwear Surgical Shoe with pressure relief insole Pain Scale: 0-10 Numeric Is Patient Pain Free? Yes - Nurse 1 - General Ulcer Measurement Start: 06/29/24 10:35 Freq: Status: Active Protocol: Activity Type Activity Date Activity User E-sign Co-sign Detail Recorded Client Recorded Date Recorded By Document 06/29/24 10:35 JARAD [id number] 06/29/24 10:49 KW 06/29/24 10:35 Wound Center Nurse 1 1-right plantar foot -Current Size (cm) - Length 2.5 -Current Size (cm) - Width 2.5 -Current Size (cm) - Depth 0.5 -Total Square Cm 6.25 -Exudate Amt Medium -Exudate Type Serosanguineous -Wound Margin Distinct, Outline Attached -Granulation Amt Medium (34-66%) -Granulation Quality [place] -Necrosis Amt Medium (34-66%) -Necrotic Tissue Type Adherent Slough -Texture (Jaleesa-wound Skin Appearance) Assessed -Moisture (Jaleesa-wound Skin Appearance) Assessed -Color (Jaleesa-wound Skin Appearance) Assessed -Temperature (Jaleesa-wound Skin No Abnormality Appearance) (Pt Warm) -Tenderness on Palpation (Jaleesa-wound No Skin Appearance) -Ulcer Cleansing Soap and Water -Foul Odor after Cleansing No -Anesthetic Used 5% Lidocaine Gel Right Calf (cm) 52 Right Ankle (cm) 28 WC - Nurse 2 - General Ulcer CM Notes Start: 06/29/24 10:35 Freq: Status: Active Protocol: Activity Type Activity Date Activity User E-sign Co-sign Detail Recorded Client Recorded Date Recorded By Document 06/29/24 11:21 [facility] [id number] 06/29/24 11:32 [facility] 06/29/24 11:21 Wound Center Nurse 2 1-right plantar foot -Time 11:21 -Correct Patient Yes -Correct Side, Site, Position Yes -Correct Procedure Yes -Procedure Performed Yes -Type of Procedure Debridement -Clinical Debridement Subcutaneous -Tissue Removed Subcutaneous -Post Debridement (cm) - Length 2.5 -Post Debridement (cm) - Width 2.7 -Post Debridement (cm) - Depth 0.4 -Total Square (Post) (cm) 6.75 -Area of Debridement (cm) - Length 2.5 -Area of Debridement (cm) - Width 2.7 -Total Square (Area) (cm) 6.75 -Tunneling No -Undermining/Tunneling No -Circular Undermining No -Wound/Ulcer Outcome Not Healed -Ulcer Cleansing Rinsed/ Irrigated with Saline -Foul Odor after Cleansing No -Bioengineered Tissue No -Expiration Date 12/26/28 -Product Lot Number [id number] -Percent Used 100 -Lot number of Saline Used [id number] -Bleeding Controlled with Pressure -Treatment Response Procedure Tolerated Well -Debridement - Subq, 1st 20sq cm No -Apply Skin Sub - 1st 25 sq cm - Feet 1 -Epifix Mesh (per sq cm) 11 Pain Scale: 0-10 Numeric Is Patient Pain Free? Yes Assessment/Plan Assessment/Plan (1) Non-pressure chronic ulcer of other part of right foot with necrosis of muscle: CODE(S): L97.513 - Non-pressure chronic ulcer of other part of right foot with necrosis of muscle (2) Cellulitis of foot, right: CODE(S): L03.115 - Cellulitis of right lower limb (3) Diabetes mellitus with diabetic polyneuropathy: CODE(S): E11.42 - Type 2 diabetes mellitus with diabetic polyneuropathy (4) Type 2 diabetes mellitus with foot ulcer: CODE(S): E11.621 - Type 2 diabetes mellitus with foot ulcer; L97.509 - Non-pressure chronic ulcer of other part of unspecified foot with unspecified severity (5) Debility: CODE(S): R53.81 - Other malaise (6) Ischemic cardiomyopathy: CODE(S): I25.5 - Ischemic cardiomyopathy (7) Essential hypertension: CODE(S): I10 - Essential (primary) hypertension PLAN: Plan Patient seen and evaluated She continues to change dressing daily with Dakin's and wound has improved. Finished 1 course of oral doxycycline. Currently finishing oral antibiotic doxycycline 100 mg twice daily and ciprofloxacin 500 mg daily. Antibiotic were extended with new stop date (06/29/24). Will have completed 6 weeks oral abx after new extension listed below. Discussed another round of antibiotics of doxycycline 100 mg twice a day and ciprofloxacin 500 mg daily to complete her 6-week treatment. She has been approved for EpiFix graft, will proceed with application. Will obtain LEAS. Predebridement measurement: 2.4 cm x 2.6 cm x 0.4 cm Ulceration underwent debridement as noted in the clinical panel above. Postdebridement measurement 2.5 cm x 2.7 cm x 0.4 cm. EpiFix graft #5 applied to ulcerative bed and dressed with Adaptic touch and anchored with Steri-Strips, dry sterile dressing applied. They were instructed to not get the site wet and to utilize a cast bag when showering. Discussed changing outer gauze dressings as needed but leaving graft intact. Patient's son is understanding of this. Addy wrap compression applied to lower extremities. Her ulceration has slightly decreased in size from last visit with some filling in, but overall continues to look better with more granular tissue however bone remains in close proximity secondary to depth. Continue offloading with surgical shoe with 5th metatarsal head cut out. Process will begin for HBO therapy clearance. Labs were ordered consisting of CBC with differential, Chem 12, CXR, EKG, prealbumin, awaiting results. Patient will also see Dr. Aj for physical and clearance prior to HBO therapy. LEAS was ordered, awaiting results. Currently on Oral antibiotics and has completed 6 weeks. Laboratory results performed 06/22/2024 demonstrate: WBC 7.4, Hgb 9.7, Hct 32.8, platelet 247, ESR 38, sodium 140, potassium 4.2, chloride 111, Carbon dioxide 26.0, BUN 42, Cr 1.67, HgbA1c 6.5%, AST 20, ALT 24, alkaline phosphatase 111, CRP 18.6, prealbumin 10. CRX was also completed 06/22/2024. Discussed continued elevation of lower extremities at times of rest to aid in edema control. Discussed rewrapping of Addy wrap's as needed to continue edema control. Discussed continued adequate protein intake to aid in wound healing. Champ supplementation was also recommended. Discussed continued reduction of A1c to aid in wound healing. Patient's son states her last A1c was just under 8%. Discussed daily foot checks as patient is diabetic and insensate to the foot. Discussed not ambulating barefoot and encouraged shoes to be worn. Discussed continued offloading with surgical shoe to the right foot with a 5th metatarsal head cut out. Discussed overall she needs to reduce ambulation and rest with feet elevated to allow healing. I do feel she ambulates on the lateral aspect of foot due to unsteady gait and obesity. Discussed the possibility of infection given close proximity to the fifth metatarsal head. Discussed that this would require surgical intervention for a metatarsal head excision if site worsened. They are understanding of this. Discussed signs and symptoms of infection. Patient and her son were instructed if there is progressive redness about the wound or top of the foot that moves up the leg, red streaking up the leg, purulent drainage from the wound site, increasing foul odor from the wound, or if she experiences fever greater than 101 degree accompanied by nausea, vomiting, chills that these are signs of a progressing infection and she should report to the ED for further evaluation and IV antibiotics. She is understanding of this. The following work up and care recommendations were made: Dressing: EpiFix, Adaptic touch, Steri-Strips, dry sterile dressing. Wash: Do not get wet Tissue growth optimization: EpiFix Offload: Surgical shoe to right foot with fifth metatarsal head cut out. Vascular: DP and PT pulses weakly palpable. Will recommend obtaining LEAS. Edema: Bilateral lower extremity edema secondary to CHF. Continued elevation of lower extremities. Will aid in edema control via Addy wrap. Recommend continued Lasix with possible dose if needed. Infection: Fifth metatarsal head is in close proximity to the ulcerative bed. Risks of infection were discussed as above. Currently on oral antibiotics. Pain: May take [id number] Tylenol for any discomfort however patient does have a insensate foot secondary to diabetic peripheral polyneuropathy. Host factors: DM type II with peripheral polyneuropathy, CHF, lower extremity edema, CKD, HTN, advanced age, obesity, PVD. Will see Dr. Aj next week for HBO clearance. I answered all the patient's questions. To return to the wound healing center in 2 weeks or call sooner if the patient has any questions or concerns.
--- NOTE | 2024-07-05 12:50 | ART_ITS ---
Reason For Study: BLE Wounds Procedure A bilateral lower extremity continuous wave Doppler with analog waveform analysis,segmental pressures,and ankle brachial indexes without exercise. Left Segmental Pressures Left brachial= 138mmHg. Left calf = 153mmHg. Left posterior tibial artery = 120mmHg. Left dorsalis pedis artery = 133mmHg. Left digit = 73 mmHg. The left posterior tibial artery waveforms are biphasic. The left dorsalis pedis waveforms are biphasic. Right Segmental Pressures Right brachial= 136mmHg. Right calf = 148mmHg. Right posterior tibial artery = 111mmHg. Right dorsalis pedis artery = 128mmHg. Right digit = 63 mmHg. The right posterior tibial artery waveforms are biphasic. The right dorsalis pedis waveforms are biphasic. Indices The right ankle brachial index by the posterior tibial artery is 0.80. The right ankle brachial index by the dorsalis pedis is 0.93. The right digital-brachial index is 0.46. The left ankle brachial index by the posterior tibial artery is 0.87. The left ankle brachial index by the dorsalis pedis is 0.96. The left digital-brachial index is 0.53. VL/Lower Ext Art Exam w/o Exercis Interpretation Summary Biphasic Doppler waveforms are noted at ankle level bilaterally. Pulse-volume r ecordings appear satisfactory bilaterally. Resting ankle-brachial indices are minimally diminish ed bilaterally. The right digital-brachial index is moderately diminished. The left digital-brachia l index is mildlly diminished. There is evidence of minimal arterial occlusive disease at ankle level bilatera lly. There is evidence of moderate arterial occlusive disease at digital level on the right. There is evidence of mild arterial occlusive disease at digital level on the left. Ordering Physician: Paul Erwin Referring Physician: MD Nabor James Performed By: Garett Lawson RVT
--- NOTE | 2024-07-05 12:50 | VDLE_ITS ---
Reason For Study: BLE Wounds RIGHT LEFT CFV is compressible, spontaneous, phasic, CFV is compressible, spontaneous, phasic, competent, and demonstrates normal competent, and demonstrates normal augmentation. augmentation. FV is compressible, spontaneous, phasic, FV is compressible, spontaneous, phasic, competent and demonstrates normal competent and demonstrates normal augmentation. augmentation. POP V is compressible, spontaneous, phasic, POP V is compressible, spontaneous, phasic, competent and demonstrates normal competent and demonstrates normal augmentation. augmentation. T/P Trunk is compressible. T/P Trunk is compressible. PTV is compressible. PTV is compressible. PerV is compressible. LT PerV is compressible. SFJ is INCOMPETENT and measures 0.77 cm. SFJ is INCOMPETENT and measures 0.75 cm. GSV proximal thigh measures 0.69 x 0.70 cm. GSV proximal thigh measures 0.67 x 0.65 cm. GSV at knee measures 0.48 x 0.52 cm. GSV at knee measures 0.72 x 0.83 cm. GSV INCOMPETENT throughout for greater than GSV INCOMPETENT throughout for greater than 0.5 seconds. 0.5 seconds. ASV mid calf is INCOMPETENT for greater than Multiple INCOMPETENT Varicosities noted 0.5 seconds and measures 0.47 x 0.56 cm. throughout LLE with multiple branches that SSV proximal calf is competent and measures appear to connect with GSV at prox and distal 0.39 x 0.39 cm. thigh as well as prox calf. Procedure SSV proximal calf is competent and measures Exam performed in department. 0.28 x 0.25 cm. This is a venous duplex using B-mode, color flow and spectral Doppler. The study was technically difficult. Patient was scanned in reverse Trendelenburg position during reflux assessment. VL/Venous Duplex US - [place] Extrem Interpretation Summary Deep veins of the lower extremities are bilaterally patent and compressible seg mentally. There is no evidence of deep vein thrombosis on either side. Valvular competence appears in tact within the proximal deep venous systems bilaterally. The great saphenous veins appear bila terally patent and compressible segmentally. Sapheno-femoral junctions are bilaterally incompetent . Segmental valvular incompetence is noted within the great saphenous veins bilaterally. Small saphe nous veins are patent and competent bilaterally. The accessory saphenous vein in the right mid-calf i s incompetent. 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 Ordering Physician: Paul Erwin Referring Physician: MD Jacob Nabor Performed By: Garett Lawson RVT
[2024-07-06 11:00] VITALS: BP 105/48; PULSE 67; TEMP 35.5; BMI 42.7
--- NOTE | 2024-07-06 12:12 | PCM.CONHBO ---
Assessment & Plan Assessment/Plan (1) Type 2 diabetes mellitus with foot ulcer: (2) Diabetes mellitus with diabetic polyneuropathy: (3) Chronic combined systolic and diastolic CHF (congestive heart failure): (4) Ischemic cardiomyopathy: (5) Dyspnea: PLAN: Plan Wyatt stage III diabetic foot ulcer. Definitely will benefit from hyperbaric oxygen therapy. History of congestive heart failure, secondary pulmonary arterial hypertension and ischemic cardiomyopathy, follows up with cardiology. She reports shortness of breath at rest and with activity. Will need to get clearance from cardiology prior to HBO initiation. Also history of diabetes mellitus type 2 currently on insulin. Recent A1c at 6.5. They however report some concerns with hypoglycemia. Optimal dietary intake and pre and post blood glucose monitoring per protocol with each session of hyperbaric oxygen. No ear concerns reported at time of visit and tympanic membrane examination with no concerns noted. Pending cardiology evaluation, at this time, there is no absolute contraindication to hyperbaric oxygen therapy. Would recommend 30 - 40 sessions of hyperbaric oxygen therapy at 2 ELISE for 90 minutes without any breaks. Reevaluate need for further sessions if needed. She believes that she can commit to this 5 days a week. Son also believes that they can find transportation and bring her for her sessions. Thier questions were answered and they were advised to let us know if they have any further questions or concerns. This note was generated with [employer] dictation software. It may contain incorrect words, spelling, and punctuation that were not noted in checking the note before signing. History of Present Illness Date of Service: 07/06/24 Chief Complaint: Plantar lateral fifth metatarsal head ulceration right foot History of Wound: Ms. Myers is a 74-year-old currently being seen at the wound center and managed for diabetic foot ulcer. Due to stage of diabetic foot ulcer, consideration is for hyperbaric oxygen therapy to aid in healing. No prior history of hyperbaric oxygen therapy. No current tobacco use, quit in 1989. History of diabetes mellitus type 2 and most recent A1c said to be about 6.5. Also history of congestive heart failure, last ejection fraction at 35%. Follows up routinely with cardiology. She reports shortness of breath even at rest. No significant history of seizures or claustrophobia. Also denies any significant visual or auditory concerns. History of recurrent ear infections as a child. She feels well otherwise. [facility] Medical History (Updated 07/06/24 @ 14:[address] Aleksandar Aj MD) Dyspnea Ischemic cardiomyopathy History of CVA (cerebrovascular accident) Atherosclerosis of coronary artery without angina pectoris Type 2 diabetes mellitus Secondary pulmonary arterial hypertension Chronic combined systolic and diastolic CHF (congestive heart failure) Essential hypertension Obesity Chronic kidney disease (CKD) GI bleed (01/2022) Anemia Diabetes mellitus type 2 in obese Hyperlipidemia Home Medications ?Medication ?Instructions ?Recorded ?Last Taken ?Type atorvastatin 40 mg tablet 40 mg PO QHS 02/22/22 Unknown History valsartan 160 mg tablet 160 mg PO DAILY 02/22/22 Unknown History insulin detemir U-100 100 unit/mL 70 unit (0.7 mL) subcut BREAKFAST 02/26/22 Unknown Rx (3 mL) subcutaneous pen (Levemir #0 mL FlexTouch U-100 Insulin) insulin lispro 100 unit/mL See Protocol subcut ACHS #0 mL 02/26/22 Unknown Rx subcutaneous pen (Humalog KwikPen (U-100) Insulin) aspirin 81 mg tablet,delayed 81 mg PO DAILY 06/03/22 Unknown History release (Adult Aspirin Regimen) furosemide 40 mg tablet 40 mg PO DAILY 06/03/22 Unknown History dapagliflozin propanediol 10 mg 10 mg PO DAILY #30 tabs 06/22/22 Unknown Rx tablet (Farxiga) carvedilol 12.5 mg tablet 12.5 mg PO BID 06/17/23 Unknown History Allergy/AdvReac Type Severity Reaction Status Date / Time No Known Allergies Allergy Verified 01/11/24 15:46 Family History Father Diabetes Heart disease CAD (coronary artery disease) Mother Heart disease Surgical History History of coronary artery stent placement (09/2013) H/O vein stripping Status post angioplasty with stent Social History (Updated 01/11/24 @ 15:49 by Tara Barrios) household members: family Smoking Status: Former smoker how long ago did patient quit smokin years ago alcohol intake: never substance use type: does not use caffeine: Yes ROS Constitutional Constitutional: Denies excessive sweating, fatigue, frequent falls, headache(s), lethargy or night sweats Eyes Eyes: Denies blurry vision, change in eye color, diplopia, discharge from eye(s), double vision or dry eyes ENT HEENT: Denies disequillibrium, dysphagia, ear pain, epistaxis, foreign body in nose or halitosis Cardiovascular Cardiovascular: Denies bluish discoloration of hand/feet, claudication, clubbing, cyanosis, diaphoresis or dizziness Respiratory/Chest Respiratory/Chest: Reports dyspnea and dyspnea on exertion; Denies difficulty clearing secretions, excessive phlegm production, hemoptysis, hoarseness or inability to speak Gastrointestinal Gastrointestinal: Denies bloating, chewing difficulty, coffee ground emesis, dry heaves or early satiety Genitourinary Genitourinary: Denies abdominal discomfort, contractions, difficulty urinating or flank pain Musculoskeletal Musculoskeletal: Reports difficulty walking; Denies muscle spasms, numbness, tingling or tremors Integumentary Integumentary: Reports skin ulcer; Denies erythema, furuncle, hirsutism, jaundice or rash Neurologic Neurologic: Denies abnormal speech, behavior changes, convulsions, disequilibrium, seizure-like activity or seizures Psychiatric Psychiatric: Denies auditory hallucinations, behavioral changes, hallucinations, irritability, tactile hallucinations or visual hallucinations Endocrine Endocrinology: Denies cold intolerance, deepening of the voice, excessive sweating, heat intolerance or increase in ring/shoe/hat size Allergic/Immunologic Allergic/Immunologic: Denies itchy eyes, lip swelling, throat swelling, tongue swelling or urticaria Physical Exam Physical Exam Const alert and no apparent distress General Appearance: cooperative and comfortable HEENT normocephalic, head/scalp atraumatic and hearing grossly normal bilaterally Tympanic Membrane: TM's normal bilaterally Eyes EOMs intact bilaterally General Eye: normal appearance of both eyes Neck full ROM and supple General: normal visual inspection Resp normal respiratory effort and normal air movement Effort and Inspection: able to speak in complete sentences Cardio regular rate, regular rhythm, S1 normal heart sound and S2 normal heart sound GI soft to palpation and non-tender Extremity General Extremity: edema Neuro CN's II-XII intact bilaterally and moves all extremities Psych mental status grossly normal, thought process normal, cooperative and affect normal Nursing Assessment and Debridement Post-Debridement Measurements and Additional Note: Post-Debridement Measurements/Treatment WC - Nurse 1 - General Ulcer Assessment Start: 06/29/24 10:35 Freq: Status: Active Protocol: [employer] Activity Type Activity Date Activity User E-sign Co-sign Detail Recorded Client Recorded Date Recorded By Document 07/06/24 11:00 [facility] [id number] 07/06/24 11:02 [facility] 07/06/24 11:00 WC - Today's Visit Information Type of service HBO Consult Arrival Mode Wheelchair Transfer Assistance None Accompanied by son Patient Identification Verified (Name & Yes ) Height and Weight Body Mass Index (BMI) 42.7 BMI Classification Obese Vital Signs Temperature (97.8 F-99.1 F) 96 F L Temperature Source Temporal Pulse Rate (60-100 beats/min) 67 Pulse Location Monitor Blood Pressure (90/60-120/80 mm Hg) 105/48 L Blood Pressure Mean (mm Hg) 67 Source Monitor Position Sitting Blood Pressure Location Right Forearm History Since Last Visit- (Skip if this is Patient's initial visit) Left Footwear Slipper Right Footwear Slipper Pain Scale: 0-10 Numeric Is Patient Pain Free? Yes - Nurse 2 - General Ulcer CM Notes Start: 06/29/24 10:35 Freq: Status: Active Protocol: Activity Type Activity Date Activity User E-sign Co-sign Detail Recorded Client Recorded Date Recorded By Document 07/06/24 11:33 [id number] 07/06/24 11:38 07/06/24 11:33 Is Patient Pain Free? Yes Imaging Radiology Impression Extremity Arterial Study 07/05/24 12:50 Interpretation Summary Biphasic Doppler waveforms are noted at ankle level bilaterally. Pulse-volume recordings appear satisfactory bilaterally. Resting ankle-brachial indices are minimally diminished bilaterally. The right digital-brachial index is moderately diminished. The left digital-brachial index is mildlly diminished. There is evidence of minimal arterial occlusive disease at ankle level bilaterally. There is evidence of moderate arterial occlusive disease at digital level on the right. There is evidence of mild arterial occlusive disease at digital level on the left. Ordering Physician: Paul Erwin Referring Physician: MD Nabor James Performed By: Renny, Garett, RVT Venous Doppler Study 07/05/24 12:50 Interpretation Summary Deep veins of the lower extremities are bilaterally patent and compressible segmentally. There is no evidence of deep vein thrombosis on either side. Valvular competence appears intact within the proximal deep venous systems bilaterally. The great saphenous veins appear bilaterally patent and compressible segmentally. Sapheno-femoral junctions are bilaterally incompetent . Segmental valvular incompetence is noted within the great saphenous veins bilaterally. Small saphenous veins are patent and competent bilaterally. The accessory saphenous vein in the right mid-calf is incompetent. 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 Ordering Physician: Paul Erwin Referring Physician: MD Jacob Nabor Performed By: Garett Lawson RVT Charges/Coding Visit Charges Office Visits / Consults: [id number] OV L3 New 30min
--- NOTE | 2024-07-11 09:32 | EKG12_ITS ---
Test Reason : HYPERBARIC CLEARANCE Blood Pressure : / mmHG Vent. Rate : 072 BPM Atrial Rate : 072 BPM P-R Int : 150 ms QRS Dur : 166 ms QT Int : 498 ms P-R-T Axes : 106 -36 062 degrees QTc Int : 545 ms Sinus rhythm with Premature supraventricular complexes Left axis deviation Left bundle branch block Abnormal ECG When compared with ECG of 23-FEB-2022 05:28, Premature supraventricular complexes are now Present T wave inversion less evident in Inferior leads T wave inversion less evident in Lateral leads Confirmed by HILLARY MOLINA, RAJ ([id number]), fashion editor ASTON AQUINO ([id number]) on 07/11/2024 1:29:22 PM Referred By: Paul Erwin Confirmed By:RAJ THORNTON MD
[2024-07-13 11:09] VITALS: BP 131/47; PULSE 73; RESP 18; TEMP 36.1; BMI 42.7
--- NOTE | 2024-07-13 12:00 | PN.PCM_ITS ---
History of Present Illness Date of Service: 07/13/24 Chief Complaint: Plantar lateral fifth metatarsal head ulceration right foot History of Wound: Ms. Myers is a 74-year-old currently being seen at the wound center and managed for diabetic foot ulcer. Due to stage of diabetic foot ulcer, consideration is for hyperbaric oxygen therapy to aid in healing. No prior history of hyperbaric oxygen therapy. No current tobacco use, quit in 1989. History of diabetes mellitus type 2 and most recent A1c said to be about 6.5. Also history of congestive heart failure, last ejection fraction at 35%. Follows up routinely with cardiology. She reports shortness of breath even at rest. No significant history of seizures or claustrophobia. Also denies any significant visual or auditory concerns. History of recurrent ear infections as a child. She feels well otherwise. Subjective Subjective This is a 74-year-old female who follows up today for continued care of a subfifth metatarsal head ulceration of the right foot. She is accompanied by her son. Patient does not ambulate well and is assisted by walker. She continues offloading with surgical shoe to the right foot with 5th metatarsal head cut out. Her son states that she opened up with a new ulceration under the fifth metatarsal head of the left foot and did see Dr. Carranza in office last week. She returns today with worsening condition of the left foot. She does have lab ored breathing secondary to CHF. Currently finishing the oral antibiotic with last day tomorrow. Denies constitutional symptoms. Denies further complaints. Objective Data Objective Data Vital Signs: Vital Signs Temp Pulse Resp BP O2 Del Method 96.9 F L 73 18 131/47 H Room Air 07/13/24 11:09 07/13/24 11:09 07/13/24 11:09 07/13/24 11:09 06/29/24 10:35 Oxygen Delivery Method Room Air Weight: 120.202 kg Body Mass Index (BMI) 42.7 Physical Exam Const alert, oriented x3 and no apparent distress General Appearance: cooperative Nutritional Appearance: morbidly obese HEENT normocephalic Eyes General Eye: normal appearance of both eyes Neck General: normal visual inspection Lymph Lymphatic: no lymphadenopathy noted and no lymphedema noted Resp Resp Narrative: Breathing does appear to be labored today with wheezing noted Cardio regular rate and regular rhythm Extremity normal capillary refill and no calf tenderness Extremity Narrative: Bilateral lower extremity: Vascular: DP and PT pulses weakly palpable. CFT less than 5 seconds to the digits. Temperature gradient is normal. Hair growth is absent to digits. Neurologic: Light touch sensation diminished. Gross sensation intact. Protective sensation absent. Musculoskeletal: Muscle strength 4 of 5 due to generalized weakness as patient does not ambulate much. Decreased range of motion of the ankle joint dorsiflexion with the knee extended without pain or crepitus. Decreased range of motion of the STJ, MTJ, and first MTPJ without pain or crepitus. No pain to palpation around ulcerative site subfifth metatarsal head. Dermatologic: There is a full-thickness ulceration noted to the plantar lateral fifth metatarsal head of the right foot. Ulceration does probe close to bone of the fifth metatarsal head. Ulceration demonstrates mixed fibrogranular layer with some serosanguineous drainage. Erythema is to the dorsal foot resolved and edema is improving. No malodor noted. No palpable fluctuance/bogginess noted, no soft tissue crepitus, no purulent drainage. Left foot demonstrates new ulceration subfifth metatarsal head with granular tissue and eschar. There is serosanguineous drainage. There is localized erythema about the ulceration. No purulent drainage noted. Bilateral lower extremities demonstrates edema with chronic venous stasis changes and dermatitis. Skin no rashes or lesions noted, skin turgor normal and no jaundice General Skin Exam: venous stasis and dermatitis Neuro moves all extremities Debridement Note Debridement Note No debridement was completed: No debridement was completed today Post-Debridement Measurements and Additional Note: Post-Debridement Measurements/Treatment - Nurse 1 - General Ulcer Assessment Start: 06/29/24 10:35 Freq: Status: Active Protocol: KAY Activity Type Activity Date Activity User E-sign Co-sign Detail Recorded Client Recorded Date Recorded By Document 06/29/24 10:35 KW [id number] 06/29/24 10:49 KW Document 07/06/24 11:00 BMF [id number] 07/06/24 11:02 BMF Document 07/13/24 11:09 RB [id number] 07/13/24 11:14 RB 06/29/24 07/06/24 07/13/24 10:35 11:00 11:09 - Today's Visit Information Type of service Follow-up Visit HBO Consult Follow-up Visit (Physician/PULP PILER (Physician/PULP PILER ) ) Arrival Mode Wheelchair Wheelchair Ambulatory,Cane Transfer Assistance None None Accompanied by son Patient Identification Verified (Name & Yes Yes Yes ) Patient Requires Transmission-Based No Precautions Finger Stick Blood Sugar(mg/dl) (if 148 indicated): Blood Sugar Stated by Patient Height and Weight Weight Measurement Method Estimated by Patient Body Mass Index (BMI) 42.7 42.7 42.7 BMI Classification Obese Obese Obese Vital Signs Temperature (97.8 F-99.1 F) 96.7 F L 96 F L 96.9 F L Temperature Source Temporal Temporal Temporal Pulse Rate (60-100) 69 67 73 Pulse Location Monitor Monitor Monitor Respiratory Rate (12-18) 18 18 Respiratory rate source Observation Observation Oxygen Delivery Method Room Air Blood Pressure (90/60-120/80) 130/39 H 105/48 L 131/47 H Blood Pressure Mean (mm Hg) 69 67 75 Source Monitor Monitor Monitor Position Semi-Fowlers Sitting Semi-Fowlers Blood Pressure Location Right Forearm Right Forearm Left Arm History Since Last Visit- (Skip if this is Patient's initial visit) Have you changed medications since your No No last visit? Any new allergies or adverse reactions No No Had a fall/change in ADL's that may No No increase risk of falls Signs or symptoms of abuse and/or No No neglect since last visit Have you been in the hospital since your No No last visit? Has dressing in place as prescribed Yes Yes Has compression in place as prescribed Yes Yes Has offloadiing in place as prescribed N/A No Experienced any changes in pain level or No No management Left Footwear Regular Shoe Slipper Right Footwear Surgical Shoe Slipper with pressure relief insole Pain Scale: 0-10 Numeric Is Patient Pain Free? Yes Yes Yes WC - Nurse 1 - General Ulcer Measurement Start: 06/29/24 10:35 Freq: Status: Active Protocol: Activity Type Activity Date Activity User E-sign Co-sign Detail Recorded Client Recorded Date Recorded By Document 06/29/24 10:35 KW [id number] 06/29/24 10:49 KW Document 07/13/24 11:09 RB [id number] 07/13/24 11:14 RB 06/29/24 07/13/24 10:35 11:09 Wound Center Nurse 1 2. L plantar foot -Combined with other wound No -Current Size (cm) - Length 0.1 -Current Size (cm) - Width 0.1 -Current Size (cm) - Depth 0.1 -Total Square Cm 0.01 -Photo Taken Yes -Tunneling No -Undermining/Tunneling No -Circular Undermining No -Exudate Amt Medium -Exudate Type Serosanguineous -Wound Margin Distinct, Outline Attached -Granulation Amt None Present (0 %) -Slough/Fibrin Yes -Necrosis Amt Large (67-100%) -Necrotic Tissue Type Eschar -Structure Exposed N/A -Texture (Jaleesa-wound Skin Appearance) Assessed,Callus -Moisture (Jaleesa-wound Skin Appearance) Assessed -Color (Jaleesa-wound Skin Appearance) Assessed, Erythema -Temperature (Jaleesa-wound Skin No Abnormality Appearance) (Pt Warm) -Tenderness on Palpation (Jaleesa-wound No Skin Appearance) -Ulcer Cleansing Wound Cleanser -Foul Odor after Cleansing Yes -Anesthetic Used 5% Lidocaine Gel -Wound Comment(s) wound not measured due to eschar 1-right plantar foot -Combined with other wound No -Current Size (cm) - Length 2.5 2.5 -Current Size (cm) - Width 2.5 2.4 -Current Size (cm) - Depth 0.5 0.1 -Total Square Cm 6.25 6.00 -Tunneling No -Undermining/Tunneling No -Circular Undermining No -Exudate Amt Medium Medium -Exudate Type Serosanguineous Serosanguineous -Wound Margin Distinct, Distinct, Outline Outline Attached Attached -Granulation Amt Medium (34-66%) Medium (34-66%) -Granulation Quality [place] -Slough/Fibrin Yes -Necrosis Amt Medium (34-66%) Medium (34-66%) -Necrotic Tissue Type Adherent Slough Adherent Slough -Structure Exposed N/A -Texture (Jaleesa-wound Skin Appearance) Assessed Assessed -Moisture (Jaleesa-wound Skin Appearance) Assessed Assessed -Color (Jaleesa-wound Skin Appearance) Assessed Assessed -Temperature (Jaleesa-wound Skin No Abnormality No Abnormality Appearance) (Pt Warm) (Pt Warm) -Tenderness on Palpation (Jaleesa-wound No No Skin Appearance) -Ulcer Cleansing Soap and Water Wound Cleanser -Foul Odor after Cleansing No No -Anesthetic Used 5% Lidocaine 5% Lidocaine Gel Gel Lower Limb Edema Present Yes Right Calf (cm) 52 55 Right Ankle (cm) 28 32.5 Left Calf (cm) 51.2 Left Ankle (cm) 28.5 WC - Nurse 2 - General Ulcer CM Notes Start: 06/29/24 10:35 Freq: Status: Active Protocol: Activity Type Activity Date Activity User E-sign Co-sign Detail Recorded Client Recorded Date Recorded By Document 06/29/24 11:21 BM [id number] 06/29/24 11:32 BM Document 07/06/24 11:33 [id number] 07/06/24 11:38 Document 07/13/24 11:38 [facility] [id number] 07/13/24 11:47 BM 06/29/24 07/06/24 07/13/24 11:21 11:33 11:38 Wound Center Nurse 2 2. L plantar foot -Time 11:40 -Post Debridement (cm) - Length 4.1 -Post Debridement (cm) - Width 4 -Post Debridement (cm) - Depth 0.1 -Total Square (Post) (cm) 16.4 -Area of Debridement (cm) - Length 4.1 -Area of Debridement (cm) - Width 4 -Total Square (Area) (cm) 16.4 -Wound/Ulcer Outcome Not Healed -Bleeding Controlled with NA -Wound Comment(s) to ER today for surgery 1-right plantar foot -Time 11:21 11:40 -Correct Patient Yes -Correct Side, Site, Position Yes -Correct Procedure Yes -Procedure Performed Yes -Type of Procedure Debridement -Clinical Debridement Subcutaneous -Tissue Removed Subcutaneous -Post Debridement (cm) - Length 2.5 2.4 -Post Debridement (cm) - Width 2.7 2.2 -Post Debridement (cm) - Depth 0.4 0.1 -Total Square (Post) (cm) 6.75 5.28 -Area of Debridement (cm) - Length 2.5 2.4 -Area of Debridement (cm) - Width 2.7 2.2 -Total Square (Area) (cm) 6.75 5.28 -Tunneling No -Undermining/Tunneling No -Circular Undermining No -Wound/Ulcer Outcome Not Healed Not Healed -Ulcer Cleansing Rinsed/ Irrigated with Saline -Foul Odor after Cleansing No -Bioengineered Tissue No -Expiration Date 12/26/28 -Product Lot Number [id number] -Percent Used 100 -Lot number of Saline Used [id number] -Bleeding Controlled with Pressure NA -Treatment Response Procedure Tolerated Well -Debridement - Subq, 1st 20sq cm No -Apply Skin Sub - 1st 25 sq cm - Feet 1 -Epifix Mesh (per sq cm) 11 -Wound Comment(s) to er today for surgery Pain Scale: 0-10 Numeric Is Patient Pain Free? Yes Yes Yes Assessment/Plan Assessment/Plan (1) Non-pressure chronic ulcer of other part of right foot with necrosis of muscle: CODE(S): L97.513 - Non-pressure chronic ulcer of other part of right foot with necrosis of muscle (2) Cellulitis of foot, right: CODE(S): L03.115 - Cellulitis of right lower limb (3) Non-pressure chronic ulcer of other 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: CODE(S): L97.523 - Non-pressure chronic ulcer of other 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 (4) Cellulitis of left lower limb: CODE(S): L03.116 - Cellulitis of left lower limb (5) Diabetes mellitus with diabetic polyneuropathy: CODE(S): E11.42 - Type 2 diabetes mellitus with diabetic polyneuropathy (6) Type 2 diabetes mellitus with foot ulcer: CODE(S): E11.621 - Type 2 diabetes mellitus with foot ulcer; L97.509 - Non-pressure chronic ulcer of other part of unspecified foot with unspecified severity (7) Ischemic cardiomyopathy: CODE(S): I25.5 - Ischemic cardiomyopathy (8) Essential hypertension: CODE(S): I10 - Essential (primary) hypertension (9) Debility: CODE(S): R53.81 - Other malaise PLAN: Plan Patient seen and evaluated She continues to change dressing daily with Dakin's and wound has improved. Finished 1 course of oral doxycycline. Currently finishing oral antibiotic doxycycline 100 mg twice daily and ciprofloxacin 500 mg daily. Antibiotic were extended with new stop date (07/14/24). Will have completed 6 weeks oral abx after new extension listed be low. Discussed another round of antibiotics of doxycycline 100 mg twice a day and ciprofloxacin 500 mg daily to complete her 6-week treatment. She has been approved for EpiFix graft, will proceed with application. Will obtain LEAS. Predebridement measurement: Right foot sub 5th met head 2.4 cm x 2.2 cm x 0.4 cm; left foot sub 5th met head 4.1 cm x 4.0 cm x 0.1 cm Ulceration did not undergo debridement as noted in the clinical panel above. Postdebridement measurement Right foot 2.4 cm x 2.2 cm x 0.4 cm; Left foot 4.1 cm x 4.0 cm x 0.1 cm. EpiFix graft #5 applied to ulcerative bed (06/29/24). Dry sterile dressings were applied today. Patient will go to ER due to worsening condition of the left foot ulceration. Right foot ulceration has been improving and healing however bone still does remain prominent with some exposure centrally and thus decision was made to go to ED to receive IV antibiotic, admitting, and likely surgical intervention once medically stabilized next week. Her ulceration has slightly decreased in size from last visit with some filling in, but overall continues to look better with more granular tissue however bone remains in close proximity secondary to depth. Left foot demonstrates new worsening ulceration subfifth metatarsal head since her previous visit. Continue offloading with surgical shoe with 5th metatarsal head cut out. Process will begin for HBO therapy clearance. Labs were ordered consisting of CBC with differential, Chem 12, CXR, EKG, prealbumin, awaiting results. Patient will also see Dr. Aj for physical and clearance prior to HBO therapy. LEAS was ordered, awaiting results. Currently on Oral antibiotics and has completed 6 weeks. Laboratory results performed 06/22/2024 demonstrate: WBC 7.4, Hgb 9.7, Hct 32.8, platelet 247, ESR 38, sodium 140, potassium 4.2, chloride 111, Carbon dioxide 26.0, BUN 42, Cr 1.67, HgbA1c 6.5%, AST 20, ALT 24, alkaline phosphatase 111, CRP 18.6, prealbumin 10. CRX was also completed 06/22/2024. Discussed continued elevation of lower extremities at times of rest to aid in edema control. Discussed rewrapping of Addy wrap's as needed to continue edema control. Discussed continued adequate protein intake to aid in wound healing. Champ supplementation was also recommended. Discussed continued reduction of A1c to aid in wound healing. Patient's son states her last A1c was just under 8%. Discussed daily foot checks as patient is diabetic and insensate to the foot. Discussed not ambulating barefoot and encouraged shoes to be worn. Discussed continued offloading with surgical shoe to the right foot with a 5th metatarsal head cut out. Discussed overall she needs to reduce ambulation and rest with feet elevated to allow healing. I do feel she ambulates on the lateral aspect of foot due to unsteady gait and obesity. Discussed the possibility of infection given close proximity to the fifth metatarsal head. Discussed that this would require surgical intervention for a metatarsal head excision if site worsened. They are understanding of this. Discussed signs and symptoms of infection. Patient and her son were instructed if there is progressive redness about the wound or top of the foot that moves up the leg, red streaking up the leg, purulent drainage from the wound site, increasing foul odor from the wound, or if she experiences fever greater than 1 01 degree accompanied by nausea, vomiting, chills that these are signs of a progressing infection and she should report to the ED for further evaluation and IV antibiotics. She is understanding of this. The following work up and care recommendations were made: Dressing: EpiFix, Adaptic touch, Steri-Strips, dry sterile dressing. Wash: Do not get wet Tissue growth optimization: EpiFix Offload: Surgical shoe to right foot with fifth metatarsal head cut out. Vascular: DP and PT pulses weakly palpable. Will recommend obtaining LEAS. Edema: Bilateral lower extremity edema secondary to CHF. Continued elevation of lower extremities. Will aid in edema control via Addy wrap. Recommend continued Lasix with possible dose if needed. Infection: Fifth metatarsal head is in close proximity to the ulcerative bed. Risks of infection were discussed as above. Currently on oral antibiotics. Pain: May take [id number] Tylenol for any discomfort however patient does have a insensate foot secondary to diabetic peripheral polyneuropathy. Host factors: DM type II with peripheral polyneuropathy, CHF, lower extremity edema, CKD, HTN, advanced age, obesity, PVD. She did see Dr. Aj last week for HBO clearance. I answered all the patient's questions. Will report to the ED for IV antibiotics, further evaluation, and likely surgical intervention next week once patient medically stable. Will see in consultation tomorrow.
--- NOTE | 2024-07-17 13:32 | WC ---
PHOTO 07/13/24 LEFT LATERAL FOOT
--- NOTE | 2024-07-17 13:32 | WC ---
PHOTO 07/13/24 RIGHT LATERAL FOOT
--- NOTE | 2024-07-20 08:40 | PN.PCM_ITS ---
History of Present Illness Date of Service: 07/20/24 Chief Complaint: Plantar lateral fifth metatarsal head ulceration right foot History of Wound: Ms. Myers is a 74-year-old currently being seen at the wound center and managed for diabetic foot ulcer. Due to stage of diabetic foot ulcer, consideration is for hyperbaric oxygen therapy to aid in healing. No prior history of hyperbaric oxygen therapy. No current tobacco use, quit in 1989. History of diabetes mellitus type 2 and most recent A1c said to be about 6.5. Also history of congestive heart failure, last ejection fraction at 35%. Follows up routinely with cardiology. She reports shortness of breath even at rest. No significant history of seizures or claustrophobia. Also denies any significant visual or auditory concerns. History of recurrent ear infections as a child. She feels well otherwise. Subjective Subjective This is a 74-year-old female who follows up today for continued care of a subfifth metatarsal head ulceration of the right and left foot. She is accompanied by her son. She has remained nonweightbearing to both lower extremities with the assistance of a wheelchair. She did undergo surgical intervention on 07/14/2024 for bilateral fifth metatarsal head excisions with debridement of the ulceration sites of the right and left foot. Patient has been doing well since surgical intervention and is currently in an SNF. She denies constitutional symptoms. Denies further complaints. Objective Data Objective Data Vital Signs: Vital Signs Temp Pulse Resp BP O2 Del Method 96.9 F L 73 18 131/47 H Room Air 07/13/24 11:09 07/13/24 11:09 07/13/24 11:09 07/13/24 11:09 06/29/24 10:35 Oxygen Delivery Method Room Air Weight: 120.202 kg Body Mass Index (BMI) 42.7 Physical Exam Const alert, oriented x3 and no apparent distress General Appearance: cooperative Nutritional Appearance: morbidly obese HEENT normocephalic Eyes General Eye: normal appearance of both eyes Neck General: normal visual inspection Lymph Lymphatic: no lymphadenopathy noted and no lymphedema noted Resp normal respiratory effort Resp Narrative: Does have chronic wheezing noted. Cardio regular rate and regular rhythm Extremity normal capillary refill and no calf tenderness Extremity Narrative: Bilateral lower extremity: Vascular: DP and PT pulses weakly palpable. CFT less than 5 seconds to the digits. Temperature gradient is normal. Hair growth is absent to digits. Neurologic: Light touch sensation diminished. Gross sensation intact. Protective sensation absent. Musculoskeletal: Muscle strength 4 of 5 due to generalized weakness as patient does not ambulate much. Decreased range of motion of the ankle joint dorsiflexion with the knee extended without pain or crepitus. Decreased range of motion of the STJ, MTJ, and first MTPJ without pain or crepitus. No pain to palpation around ulcerative site subfifth metatarsal head. Dermatologic: There is a full-thickness ulceration noted to the plantar lateral fifth metatarsal head of the right foot. She is s/p excision of fifth metatarsal head right foot. Ulceration demonstrates mixed fibrogranular layer. No malodor noted. No palpable fluctuance/bogginess noted, no soft tissue crepitus, no purulent drainage. Left foot demonstrates ulceration subfifth metatarsal head with mixed fibrogranular tissue. She is s/p excision of fifth metatarsal head left foot. Ulceration site demonstrates no palpable fluctuance/bogginess, no purulent drainage, no malodor, no soft tissue crepitus. Bilateral lower extremities demonstrates edema with chronic venous stasis changes and dermatitis. Skin no rashes or lesions noted, skin turgor normal and no jaundice General Skin Exam: venous stasis and dermatitis Neuro moves all extremities Debridement Note Debridement Note Wound debrided: Subfifth metatarsal left foot Laterality: Left Wound Grade/Stage: Wyatt stage III Type of Debridement: Excisional debridement Anesthesia Used: 5% Lidocaine Gel Depth: Down to and including healthy tissue and in the subcutaneous layer Percentage of wound debrided: 100 Instrument Used: 5mm curette Tissue Removed: Fibrous, devitalized subcutaneous, biofilm, slough Severity: Fat Layer Exposed Amount of bleeding with debridement: Mild Bleeding Controlled with: Compression and gauze Patient tolerated procedure: Patient tolerated procedure well Post-Debridement Measurements and Additional Note: Post-Debridement Measurements/Treatment DREW - Nurse 1 - General Ulcer Assessment Start: 06/29/24 10:35 Freq: Status: Active Protocol: KAY Activity Type Activity Date Activity User E-sign Co-sign Detail Recorded Client Recorded Date Recorded By Document 06/29/24 10:35 KW [id number] 06/29/24 10:49 KW Document 07/06/24 11:00 BMF [id number] 07/06/24 11:02 BMF Document 07/13/24 11:09 RB [id number] 07/13/24 11:14 RB 06/29/24 07/06/24 07/13/24 10:35 11:00 11:09 WC - Today's Visit Information Type of service Follow-up Visit HBO Consult Follow-up Visit (Physician/EQUITY DIRECTOR (Physician/EQUITY DIRECTOR ) ) Arrival Mode Wheelchair Wheelchair Ambulatory,Cane Transfer Assistance None None Accompanied by son Patient Identification Verified (Name & Yes Yes Yes ) Patient Requires Transmission-Based No Precautions Finger Stick Blood Sugar(mg/dl) (if 148 indicated): Blood Sugar Stated by Patient Height and Weight Weight Measurement Method Estimated by Patient Body Mass Index (BMI) 42.7 42.7 42.7 BMI Classification Obese Obese Obese Vital Signs Temperature (97.8 F-99.1 F) 96.7 F L 96 F L 96.9 F L Temperature Source Temporal Temporal Temporal Pulse Rate (60-100) 69 67 73 Pulse Location Monitor Monitor Monitor Respiratory Rate (12-18) 18 18 Respiratory rate source Observation Observation Oxygen Delivery Method Room Air Blood Pressure (90/60-120/80) 130/39 H 105/48 L 131/47 H Blood Pressure Mean (mm Hg) 69 67 75 Source Monitor Monitor Monitor Position Semi-Fowlers Sitting Semi-Fowlers Blood Pressure Location Right Forearm Right Forearm Left Arm History Since Last Visit- (Skip if this is Patient's initial visit) Have you changed medications since your No No last visit? Any new allergies or adverse reactions No No Had a fall/change in ADL's that may No No increase risk of falls Signs or symptoms of abuse and/or No No neglect since last visit Have you been in the hospital since your No No last visit? Has dressing in place as prescribed Yes Yes Has compression in place as prescribed Yes Yes Has offloadiing in place as prescribed N/A No Experienced any changes in pain level or No No management Left Footwear Regular Shoe Slipper Right Footwear Surgical Shoe Slipper with pressure relief insole Pain Scale: 0-10 Numeric Is Patient Pain Free? Yes Yes Yes - Nurse 1 - General Ulcer Measurement Start: 06/29/24 10:35 Freq: Status: Active Protocol: Activity Type Activity Date Activity User E-sign Co-sign Detail Recorded Client Recorded Date Recorded By Document 06/29/24 10:35 KW [id number] 06/29/24 10:49 KW Document 07/13/24 11:09 RB [id number] 07/13/24 11:14 RB 06/29/24 07/13/24 10:35 11:09 Wound Center Nurse 1 2. L plantar foot -Combined with other wound No -Current Size (cm) - Length 0.1 -Current Size (cm) - Width 0.1 -Current Size (cm) - Depth 0.1 -Total Square Cm 0.01 -Photo Taken Yes -Tunneling No -Undermining/Tunneling No -Circular Undermining No -Exudate Amt Medium -Exudate Type Serosanguineous -Wound Margin Distinct, Outline Attached -Granulation Amt None Present (0 %) -Slough/Fibrin Yes -Necrosis Amt Large (67-100%) -Necrotic Tissue Type Eschar -Structure Exposed N/A -Texture (Jaleesa-wound Skin Appearance) Assessed,Callus -Moisture (Jaleesa-wound Skin Appearance) Assessed -Color (Jaleesa-wound Skin Appearance) Assessed, Erythema -Temperature (Jaleesa-wound Skin No Abnormality Appearance) (Pt Warm) -Tenderness on Palpation (Jaleesa-wound No Skin Appearance) -Ulcer Cleansing Wound Cleanser -Foul Odor after Cleansing Yes -Anesthetic Used 5% Lidocaine Gel -Wound Comment(s) wound not measured due to eschar 1-right plantar foot -Combined with other wound No -Current Size (cm) - Length 2.5 2.5 -Current Size (cm) - Width 2.5 2.4 -Current Size (cm) - Depth 0.5 0.1 -Total Square Cm 6.25 6.00 -Tunneling No -Undermining/Tunneling No -Circular Undermining No -Exudate Amt Medium Medium -Exudate Type Serosanguineous Serosanguineous -Wound Margin Distinct, Distinct, Outline Outline Attached Attached -Granulation Amt Medium (34-66%) Medium (34-66%) -Granulation Quality Cloverly Cloverly -Slough/Fibrin Yes -Necrosis Amt Medium (34-66%) Medium (34-66%) -Necrotic Tissue Type Adherent Slough Adherent Slough -Structure Exposed N/A -Texture (Jaleesa-wound Skin Appearance) Assessed Assessed -Moisture (Jaleesa-wound Skin Appearance) Assessed Assessed -Color (Jaleesa-wound Skin Appearance) Assessed Assessed -Temperature (Jaleesa-wound Skin No Abnormality No Abnormality Appearance) (Pt Warm) (Pt Warm) -Tenderness on Palpation (Jaleesa-wound No No Skin Appearance) -Ulcer Cleansing Soap and Water Wound Cleanser -Foul Odor after Cleansing No No -Anesthetic Used 5% Lidocaine 5% Lidocaine Gel Gel Lower Limb Edema Present Yes Right Calf (cm) 52 55 Right Ankle (cm) 28 32.5 Left Calf (cm) 51.2 Left Ankle (cm) 28.5 WC - Nurse 2 - General Ulcer CM Notes Start: 06/29/24 10:35 Freq: Status: Active Protocol: Activity Type Activity Date Activity User E-sign Co-sign Detail Recorded Client Recorded Date Recorded By Document 06/29/24 11:21 [facility] [id number] 06/29/24 11:32 BM Document 07/06/24 11:33 [id number] 07/06/24 11:38 Document 07/13/24 11:38 [facility] [id number] 07/13/24 11:47 [facility] 06/29/24 07/06/24 07/13/24 11:21 11:33 11:38 Wound Center Nurse 2 2. L plantar foot -Time 11:40 -Post Debridement (cm) - Length 4.1 -Post Debridement (cm) - Width 4 -Post Debridement (cm) - Depth 0.1 -Total Square (Post) (cm) 16.4 -Area of Debridement (cm) - Length 4.1 -Area of Debridement (cm) - Width 4 -Total Square (Area) (cm) 16.4 -Wound/Ulcer Outcome Not Healed -Bleeding Controlled with NA -Wound Comment(s) to ER today for surgery 1-right plantar foot -Time 11:21 11:40 -Correct Patient Yes -Correct Side, Site, Position Yes -Correct Procedure Yes -Procedure Performed Yes -Type of Procedure Debridement -Clinical Debridement Subcutaneous -Tissue Removed Subcutaneous -Post Debridement (cm) - Length 2.5 2.4 -Post Debridement (cm) - Width 2.7 2.2 -Post Debridement (cm) - Depth 0.4 0.1 -Total Square (Post) (cm) 6.75 5.28 -Area of Debridement (cm) - Length 2.5 2.4 -Area of Debridement (cm) - Width 2.7 2.2 -Total Square (Area) (cm) 6.75 5.28 -Tunneling No -Undermining/Tunneling No -Circular Undermining No -Wound/Ulcer Outcome Not Healed Not Healed -Ulcer Cleansing Rinsed/ Irrigated with Saline -Foul Odor after Cleansing No -Bioengineered Tissue No -Expiration Date 12/26/28 -Product Lot Number [id number] -Percent Used 100 -Lot number of Saline Used [id number] -Bleeding Controlled with Pressure NA -Treatment Response Procedure Tolerated Well -Debridement - Subq, 1st 20sq cm No -Apply Skin Sub - 1st 25 sq cm - Feet 1 -Epifix Mesh (per sq cm) 11 -Wound Comment(s) to er today for surgery Pain Scale: 0-10 Numeric Is Patient Pain Free? Yes Yes Yes - Nurse 3 - General Ulcer D/C NN Start: 06/29/24 10:35 Freq: Status: Active Protocol: Activity Type Activity Date Activity User E-sign Co-sign Detail Recorded Client Recorded Date Recorded By Document 07/13/24 12:01 [id number] 07/13/24 12:03 DL 07/13/24 12:01 Wound Care Center Nurse 3 2. L plantar foot -Ulcer Cleansing Rinsed/ Irrigated with Saline -Primary Dressing Covered/Secured with Dry Gauze & Roll Gauze, Secured with Tape 1-right plantar foot -Ulcer Cleansing Rinsed/ Irrigated with Saline -Primary Dressing Covered/Secured with Dry Gauze & Roll Gauze, Secured with Tape Treatment Response Procedure Not Tolerated Well Pain Scale: 0-10 Numeric Is Patient Pain Free? Yes - Visit Discharge Discharge Condition Stable Ambulatory Status Wheelchair Transportation Private Auto Notes: Pt to ER with admit for surgery Additional Wound Wound debrided: Subfifth metatarsal head right foot Laterality: Right Wound Grade/Stage: Wyatt stage III Type of Debridement: Excisional debridement and Selective debridement Anesthesia Used: 5% Lidocaine Gel Depth: Down to and including healthy tissue and in the subcutaneous layer Percentage of wound debrided: 100 Instrument Used: 5mm curette Tissue Removed: Fibrous, devitalized subcutaneous, biofilm, slough Severity: Fat Layer Exposed Amount of bleeding with debridement: Mild Bleeding Controlled with: Compression and gauze Patient tolerated procedure: Patient tolerated procedure well Assessment/Plan Assessment/Plan (1) Non-pressure chronic ulcer of other part of right foot with necrosis of muscle: CODE(S): L97.513 - Non-pressure chronic ulcer of other part of right foot with necrosis of muscle (2) Non-pressure chronic ulcer of other 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: CODE(S): L97.523 - Non-pressure chronic ulcer of other 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 (3) Cellulitis of foot, right: CODE(S): L03.115 - Cellulitis of right lower limb (4) Cellulitis of left lower limb: CODE(S): L03.116 - Cellulitis of left lower limb (5) Diabetes mellitus with diabetic polyneuropathy: CODE(S): E11.42 - Type 2 diabetes mellitus with diabetic polyneuropathy (6) Type 2 diabetes mellitus with foot ulcer: CODE(S): E11.621 - Type 2 diabetes mellitus with foot ulcer; L97.509 - Non-pressure chronic ulcer of other part of unspecified foot with unspecified severity (7) Ischemic cardiomyopathy: CODE(S): I25.5 - Ischemic cardiomyopathy (8) PAD (peripheral artery disease): CODE(S): I73.9 - Peripheral vascular disease, unspecified (9) Essential hypertension: CODE(S): I10 - Essential (primary) hypertension (10) Debility: CODE(S): R53.81 - Other malaise PLAN: Plan Patient seen and evaluated She is s/p excision of fifth metatarsal head right foot and left foot, debridement of ulceration to the level of muscle left foot and right foot. DOS 07/14/2024. POD #6 Predebridement measurement: Right foot sub 5th met head 1.4 cm x 1.9 cm x 0.1 cm; left foot sub 5th met head 2.9 cm x 3.1 cm x 0.5 cm Ulceration did undergo debridement as noted in the clinical panel above. Postdebridement measurement Right foot 1.5 cm x 2.0 cm x 0.1 cm; Left foot 3.0 cm x 3.2 cm x 0.5 cm. EpiFix graft #6 applied to ulcerative bed today. Dressed with Adaptic touch and anchored with Steri-Strips to ulcer site, incision site dorsally painted with Betadine and dressed with Adaptic and dry sterile dressings were applied to right foot. Left foot ulceration site packed with Axiofill and dressed with Adaptic touch and anchored with Steri-Strips. Incision site dorsally painted with Betadine dressed with Adaptic and foot dressed with dry sterile dressing. Her ulcerations have decreased in size following post-surgical intervention on 07/14/24. Sites are healing well. Continue offloading with non-weight bearing status to bilateral lower extremity with assistance of wheelchair. She may weight-bear to heel bilateral foot only for transfers. She has been cleared for HBO therapy. Labs were ordered consisting of CBC with differential, Chem 12, CXR, EKG, prealbumin, awaiting results. Patient will also see Dr. Aj for physical and clearance prior to HBO therapy. LEAS was ordered, awaiting results. Currently on Oral antibiotics and has completed 6 weeks. Laboratory results performed 06/22/2024 demonstrate: WBC 7.4, Hgb 9.7, Hct 32.8, platelet 247, ESR 38, sodium 140, potassium 4.2, chloride 111, Carbon dioxide 26.0, BUN 42, Cr 1.67, HgbA1c 6.5%, AST 20, ALT 24, alkaline phosphatase 111, CRP 18.6, prealbumin 10. CRX was also completed 06/22/2024. Discussed continued elevation of lower extremities at times of rest to aid in edema control. Discussed rewrapping of Addy wrap's or utilize Tubigrip compression for continued edema control. Discussed continued adequate protein intake to aid in wound healing. Champ supplementation was also recommended. Discussed continued reduction of A1c to aid in wound healing. Recent A1c was 6% on 07/14/2024. Discussed daily foot checks as patient is diabetic and insensate to the foot. Discussed not ambulating barefoot and encouraged shoes to be worn once healed. Discussed overall she needs to reduce ambulation and rest with feet elevated to allow healing. I do feel she ambulates on the lateral aspect of foot due to unsteady gait and obesity with lead to her bilateral uclerations. Discussed signs and symptoms of infection. Patient and her son were instructed if there is progressive redness about the wound or top of the foot that moves up the leg, red streaking up the leg, purulent drainage from the wound site, increasing foul odor from the wound, or if she experiences fever greater than 101 degree accompanied by nausea, vomiting, chills that these are signs of a progressing infection and she should report to the ED for further evaluation and IV antibiotics. She is understanding of this. The following work up and care recommendations were made: Dressing: EpiFix, Adaptic touch, Steri-Strips to ulcerative site. Betadine so aked Adaptic to incision site and dry sterile dressing right foot. Left foot Betadine soaked Adaptic to incision site, Axiofill placed to plantar left foot, Adaptic touch anchored with Steri-Strips. Dry sterile dressing applied to left foot. Wash: Do not get wet bilateral foot Tissue growth optimization: EpiFix right foot, Axiofill Left foot Offload: Surgical shoe to right and left foot with fifth metatarsal head cut out. Vascular: DP and PT pulses weakly palpable. LEAS demonstrates mild arterial disease bilateral. Edema: Bilateral lower extremity edema secondary to CHF. Continued elevation of lower extremities. Will aid in edema control via Addy wrap. Recommend continued Lasix. Infection: Underwent bilateral fifth metatarsal head excision on 07/14/2024. Right fifth metatarsal head pathology demonstrates acute osteomyelitis, left fifth metatarsal head pathology demonstrates acute inflammatory reactive changes but negative for osteomyelitis. Pain: May take [id number] Tylenol for any discomfort however patient does have a insensate foot secondary to diabetic peripheral polyneuropathy. Host factors: DM type II with peripheral polyneuropathy, CHF, lower extremity edema, CKD, HTN, advanced age, obesity, PVD. She did see Dr. Aj for HBO clearance and had been cleared. I answered all the patient's questions. Will return to the wound care center in 1 week for continued postoperative care and continued debridement of ulceration sites. She is to call sooner for any questions or concerns.
[2024-07-20 08:41] VITALS: BP 184/80; PULSE 71; RESP 18; TEMP 35.9; BMI 42.7
[2024-07-27 08:45] VITALS: BP 125/54; PULSE 67; RESP 20; TEMP 35.9; BMI 42.7
--- NOTE | 2024-07-27 08:53 | PCM.WC.PN ---
History of Present Illness Date of Service: 07/27/24 Chief Complaint: Plantar lateral fifth metatarsal head ulceration right foot History of Wound: Ms. Myers is a 74-year-old currently being seen at the wound center and managed for diabetic foot ulcer. Due to stage of diabetic foot ulcer, consideration is for hyperbaric oxygen therapy to aid in healing. No prior history of hyperbaric oxygen therapy. No current tobacco use, quit in 1989. History of diabetes mellitus type 2 and most recent A1c said to be about 6.5. Also history of congestive heart failure, last ejection fraction at 35%. Follows up routinely with cardiology. She reports shortness of breath even at rest. No significant history of seizures or claustrophobia. Also denies any significant visual or auditory concerns. History of recurrent ear infections as a child. She feels well otherwise. Subjective Subjective This is a 74-year-old female who follows up today for continued care of a subfifth metatarsal head ulceration of the right and left foot. She has remained nonweightbearing to both lower extremities with the assistance of a wheelchair. Underwent surgical intervention on 07/14/2024 for bilateral fifth metatarsal head excisions with debridement of the ulceration sites of the right and left foot. Continues doing well since surgical intervention and is currently in an SNF. Glucose 87 mg/dL. She denies constitutional symptoms. Denies further complaints. Objective Data Objective Data Vital Signs: Vital Signs Temp Pulse Resp BP O2 Del Method 96.7 F L 71 18 184/80 H Room Air 07/20/24 08:41 07/20/24 08:41 07/20/24 08:41 07/20/24 08:41 06/29/24 10:35 Oxygen Delivery Method Room Air Weight: 120.202 kg Body Mass Index (BMI) 42.7 Physical Exam Const alert, oriented x3 and no apparent distress General Appearance: cooperative Nutritional Appearance: morbidly obese HEENT normocephalic Eyes General Eye: normal appearance of both eyes Neck General: normal visual inspection Lymph Lymphatic: no lymphadenopathy noted and no lymphedema noted Resp normal respiratory effort Resp Narrative: Does have chronic wheezing noted. Cardio regular rate and regular rhythm Extremity normal capillary refill and no calf tenderness Extremity Narrative: Bilateral lower extremity: Vascular: DP and PT pulses weakly palpable. CFT less than 5 seconds to the digits. Temperature gradient is normal. Hair growth is absent to digits. Neurologic: Light touch sensation diminished. Gross sensation intact. Protective sensation absent. Musculoskeletal: Muscle strength 4 of 5 due to generalized weakness as patient does not ambulate much. Decreased range of motion of the ankle joint dorsiflexion with the knee extended without pain or crepitus. Decreased range of motion of the STJ, MTJ, and first MTPJ without pain or crepitus. No pain to palpation around ulcerative site subfifth metatarsal head. Dermatologic: There is a full-thickness ulceration noted to the plantar lateral fifth metatarsal head of the right foot. She is s/p excision of fifth metatarsal head right foot. Ulceration demonstrates mixed fibrogranular layer. No malodor noted. No palpable fluctuance/bogginess noted, no soft tissue crepitus, no purulent drainage. Left foot demonstrates ulceration subfifth metatarsal head with mixed fibrogranular tissue. She is s/p excision of fifth metatarsal head left foot. Ulceration site demonstrates no palpable fluctuance/bogginess, no purulent drainage, no malodor, no soft tissue crepitus. Bilateral lower extremities demonstrates edema with chronic venous stasis changes and dermatitis. Skin no rashes or lesions noted, skin turgor normal and no jaundice General Skin Exam: venous stasis and dermatitis Neuro moves all extremities Debridement Note Debridement Note Wound debrided: Subfifth metatarsal head right foot Laterality: Right Wound Grade/Stage: Wyatt stage III Type of Debridement: Excisional debridement Anesthesia Used: 5% Lidocaine Gel Depth: Down to and including healthy tissue and in the subcutaneous layer Percentage of wound debrided: 100 Instrument Used: 5mm curette Tissue Removed: Fibrous, devitalized subcutaneous, biofilm, slough Severity: Fat Layer Exposed Amount of bleeding with debridement: Mild Bleeding Controlled with: Compression and gauze Patient tolerated procedure: Patient tolerated procedure well Post-Debridement Measurements and Additional Note: Post-Debridement Measurements/Treatment WC - Nurse 1 - General Ulcer Assessment Start: 06/29/24 10:35 Freq: Status: Active Protocol: KAY Activity Type Activity Date Activity User E-sign Co-sign Detail Recorded Client Recorded Date Recorded By Document 06/29/24 10:35 KW [id number] 06/29/24 10:49 KW Document 07/06/24 11:00 BMF [id number] 07/06/24 11:02 BMF Document 07/13/24 11:09 RB [id number] 07/13/24 11:14 RB Document 07/20/24 08:41 DL [id number] 07/20/24 08:57 DL 06/29/24 07/06/24 07/13/24 10:35 11:00 11:09 WC - Today's Visit Information Type of service Follow-up Visit HBO Consult Follow-up Visit (Physician/JUKEBOX OPERATOR (Physician/JUKEBOX OPERATOR ) ) Arrival Mode Wheelchair Wheelchair Ambulatory,Cane Transfer Assistance None None Accompanied by son Patient Identification Verified (Name & Yes Yes Yes ) Patient Requires Transmission-Based No Precautions Finger Stick Blood Sugar(mg/dl) (if 148 indicated): Blood Sugar Stated by Patient Height and Weight Weight Measurement Method Estimated by Patient Body Mass Index (BMI) 42.7 42.7 42.7 BMI Classification Obese Obese Obese Vital Signs Temperature (97.8 F-99.1 F) 96.7 F L 96 F L 96.9 F L Temperature Source Temporal Temporal Temporal Pulse Rate (60-100) 69 67 73 Pulse Location Monitor Monitor Monitor Respiratory Rate (12-18) 18 18 Respiratory rate source Observation Observation Oxygen Delivery Method Room Air Blood Pressure (90/60-120/80) 130/39 H 105/48 L 131/47 H Blood Pressure Mean (mm Hg) 69 67 75 Source Monitor Monitor Monitor Position Semi-Fowlers Sitting Semi-Fowlers Blood Pressure Location Right Forearm Right Forearm Left Arm History Since Last Visit- (Skip if this is Patient's initial visit) Have you changed medications since your No No last visit? Any new allergies or adverse reactions No No Had a fall/change in ADL's that may No No increase risk of falls Signs or symptoms of abuse and/or No No neglect since last visit Have you been in the hospital since your No No last visit? Has dressing in place as prescribed Yes Yes Has compression in place as prescribed Yes Yes Has offloadiing in place as prescribed N/A No Experienced any changes in pain level or No No management Left Footwear Regular Shoe Slipper Right Footwear Surgical Shoe Slipper with pressure relief insole Pain Scale: 0-10 Numeric Is Patient Pain Free? Yes Yes Yes 07/20/24 08:41 WC - Today's Visit Information Type of service Follow-up Visit (Physician/JUKEBOX OPERATOR ) Arrival Mode Ambulatory Transfer Assistance None Accompanied by Patient Identification Verified (Name & Yes ) Patient Requires Transmission-Based No Precautions Finger Stick Blood Sugar(mg/dl) (if indicated): Blood Sugar Height and Weight Weight Measurement Method Body Mass Index (BMI) 42.7 BMI Classification Obese Vital Signs Temperature (97.8 F-99.1 F) 96.7 F L Temperature Source Temporal Pulse Rate (60-100) 71 Pulse Location Monitor Respiratory Rate (12-18) 18 Respiratory rate source Observation Oxygen Delivery Method Blood Pressure (90/60-120/80) 184/80 H Blood Pressure Mean (mm Hg) 114 Source Monitor Position Blood Pressure Location History Since Last Visit- (Skip if this is Patient's initial visit) Have you changed medications since your No last visit? Any new allergies or adverse reactions No Had a fall/change in ADL's that may No increase risk of falls Signs or symptoms of abuse and/or No neglect since last visit Have you been in the hospital since your Yes last visit? Has dressing in place as prescribed Yes Has compression in place as prescribed Yes Has offloadiing in place as prescribed Yes Experienced any changes in pain level or No management Left Footwear Right Footwear Pain Scale: 0-10 Numeric Is Patient Pain Free? Yes WC - Nurse 1 - General Ulcer Measurement Start: 06/29/24 10:35 Freq: Status: Active Protocol: Activity Type Activity Date Activity User E-sign Co-sign Detail Recorded Client Recorded Date Recorded By Document 06/29/24 10:35 KW [id number] 06/29/24 10:49 KW Document 07/13/24 11:09 RB [id number] 07/13/24 11:14 RB Document 07/20/24 08:41 DL [id number] 07/20/24 08:57 DL 06/29/24 07/13/24 07/20/24 10:35 11:09 08:41 Wound Center Nurse 1 2. L plantar foot -Combined with other wound No -Current Size (cm) - Length 0.1 0.1 -Current Size (cm) - Width 0.1 0.1 -Current Size (cm) - Depth 0.1 0.1 -Total Square Cm 0.01 0.01 -Photo Taken Yes Yes -Tunneling No -Undermining/Tunneling No -Circular Undermining No -Exudate Amt Medium Medium -Exudate Type Serosanguineous Serosanguineous -Wound Margin Distinct, Distinct, Outline Outline Attached Attached -Granulation Amt None Present (0 Medium (34-66%) %) -Granulation Quality Red -Slough/Fibrin Yes -Necrosis Amt Large (67-100%) Medium (34-66%) -Necrotic Tissue Type Eschar Adherent Slough -Structure Exposed N/A N/A -Texture (Jaleesa-wound Skin Appearance) Assessed,Callus Localized Edema ,Scarring -Moisture (Jaleesa-wound Skin Appearance) Assessed Dry/Scaly -Color (Jaleesa-wound Skin Appearance) Assessed, Hemosiderin Erythema Staining -Temperature (Jaleesa-wound Skin No Abnormality No Abnormality Appearance) (Pt Warm) (Pt Warm) -Tenderness on Palpation (Jaleesa-wound No No Skin Appearance) -Ulcer Cleansing Wound Cleanser Soap and Water -Foul Odor after Cleansing Yes No -Anesthetic Used 5% Lidocaine 4% Lidocaine Gel Solution -Wound Comment(s) wound not measured due to eschar 1-right plantar foot -Combined with other wound No -Current Size (cm) - Length 2.5 2.5 0.1 -Current Size (cm) - Width 2.5 2.4 0.1 -Current Size (cm) - Depth 0.5 0.1 0.1 -Total Square Cm 6.25 6.00 0.01 -Photo Taken Yes -Tunneling No -Undermining/Tunneling No -Circular Undermining No -Exudate Amt Medium Medium Medium -Exudate Type Serosanguineous Serosanguineous Serosanguineous -Wound Margin Distinct, Distinct, Distinct, Outline Outline Outline Attached Attached Attached -Granulation Amt Medium (34-66%) Medium (34-66%) Medium (34-66%) -Granulation Quality [place] -Slough/Fibrin Yes -Necrosis Amt Medium (34-66%) Medium (34-66%) Medium (34-66%) -Necrotic Tissue Type Adherent Slough Adherent Slough Adherent Slough -Structure Exposed N/A N/A -Texture (Jaleesa-wound Skin Appearance) Assessed Assessed Localized Edema ,Scarring -Moisture (Jaleesa-wound Skin Appearance) Assessed Assessed Dry/Scaly -Color (Jaleesa-wound Skin Appearance) Assessed Assessed Erythema -Temperature (Jaleesa-wound Skin No Abnormality No Abnormality No Abnormality Appearance) (Pt Warm) (Pt Warm) (Pt Warm) -Tenderness on Palpation (Jaleesa-wound No No No Skin Appearance) -Ulcer Cleansing Soap and Water Wound Cleanser Soap and Water -Foul Odor after Cleansing No No No -Anesthetic Used 5% Lidocaine 5% Lidocaine 4% Lidocaine Gel Gel Solution Lower Limb Edema Present Yes Right Calf (cm) 52 55 Right Ankle (cm) 28 32.5 Left Calf (cm) 51.2 Left Ankle (cm) 28.5 WC - Nurse 2 - General Ulcer CM Notes Start: 06/29/24 10:35 Freq: Status: Active Protocol: Activity Type Activity Date Activity User E-sign Co-sign Detail Recorded Client Recorded Date Recorded By Document 06/29/24 11:21 BM [id number] 06/29/24 11:32 BMF Document 07/06/24 11:33 GM [id number] 07/06/24 11:38 GM Document 07/13/24 11:38 BMF [id number] 07/13/24 11:47 BMF Document 07/20/24 08:59 BMF [id number] 07/20/24 09:19 BMF 06/29/24 07/06/24 07/13/24 11:21 11:33 11:38 Wound Center Nurse 2 2. L plantar foot -Time 11:40 -Correct Patient -Correct Side, Site, Position -Correct Procedure -Procedure Performed -Type of Procedure -Clinical Debridement -Tissue Removed -Post Debridement (cm) - Length 4.1 -Post Debridement (cm) - Width 4 -Post Debridement (cm) - Depth 0.1 -Total Square (Post) (cm) 16.4 -Area of Debridement (cm) - Length 4.1 -Area of Debridement (cm) - Width 4 -Total Square (Area) (cm) 16.4 -Tunneling -Undermining/Tunneling -Circular Undermining -Wound/Ulcer Outcome Not Healed -Ulcer Cleansing -Foul Odor after Cleansing -Bioengineered Tissue -Bleeding Controlled with NA -Treatment Response -Debridement - Subq, 1st 20sq cm -Wound Comment(s) to ER today for surgery 1-right plantar foot -Time 11:21 11:40 -Correct Patient Yes -Correct Side, Site, Position Yes -Correct Procedure Yes -Procedure Performed Yes -Type of Procedure Debridement -Clinical Debridement Subcutaneous -Tissue Removed Subcutaneous -Post Debridement (cm) - Length 2.5 2.4 -Post Debridement (cm) - Width 2.7 2.2 -Post Debridement (cm) - Depth 0.4 0.1 -Total Square (Post) (cm) 6.75 5.28 -Area of Debridement (cm) - Length 2.5 2.4 -Area of Debridement (cm) - Width 2.7 2.2 -Total Square (Area) (cm) 6.75 5.28 -Tunneling No -Undermining/Tunneling No -Circular Undermining No -Wound/Ulcer Outcome Not Healed Not Healed -Ulcer Cleansing Rinsed/ Irrigated with Saline -Foul Odor after Cleansing No -Bioengineered Tissue No -Type of Bioengineered Tissue -Expiration Date 12/26/28 -Product Lot Number [id number] -Percent Used 100 -Lot number of Saline Used [id number] -Bleeding Controlled with Pressure NA -Treatment Response Procedure Tolerated Well -Debridement - Subq, 1st 20sq cm No -Apply Skin Sub - 1st 25 sq cm - Feet 1 -Epifix 18mm Disc -Epifix Mesh (per sq cm) 11 -Wound Comment(s) to er today for surgery Pain Scale: 0-10 Numeric Is Patient Pain Free? Yes Yes Yes 07/20/24 08:59 Wound Center Nurse 2 2. L plantar foot -Time 08:59 -Correct Patient Yes -Correct Side, Site, Position Yes -Correct Procedure Yes -Procedure Performed Yes -Type of Procedure Debridement -Clinical Debridement Subcutaneous -Tissue Removed Subcutaneous -Post Debridement (cm) - Length 3 -Post Debridement (cm) - Width 3.2 -Post Debridement (cm) - Depth 0.1 -Total Square (Post) (cm) 9.6 -Area of Debridement (cm) - Length 3 -Area of Debridement (cm) - Width 3.2 -Total Square (Area) (cm) 9.6 -Tunneling No -Undermining/Tunneling No -Circular Undermining No -Wound/Ulcer Outcome Not Healed -Ulcer Cleansing Rinsed/ Irrigated with Saline -Foul Odor after Cleansing No -Bioengineered Tissue No -Bleeding Controlled with Pressure -Treatment Response Procedure Tolerated Well -Debridement - Subq, 1st 20sq cm Yes -Wound Comment(s) AXIOFILL, 1-right plantar foot -Time 08:59 -Correct Patient Yes -Correct Side, Site, Position Yes -Correct Procedure Yes -Procedure Performed Yes -Type of Procedure Debridement -Clinical Debridement Subcutaneous -Tissue Removed Subcutaneous -Post Debridement (cm) - Length 1.5 -Post Debridement (cm) - Width 2 -Post Debridement (cm) - Depth 0.1 -Total Square (Post) (cm) 3.0 -Area of Debridement (cm) - Length 1.5 -Area of Debridement (cm) - Width 2 -Total Square (Area) (cm) 3.0 -Tunneling No -Undermining/Tunneling No -Circular Undermining No -Wound/Ulcer Outcome Not Healed -Ulcer Cleansing Rinsed/ Irrigated with Saline -Foul Odor after Cleansing No -Bioengineered Tissue No -Type of Bioengineered Tissue Epifix 18mm Disc -Expiration Date 01/25/29 -Product Lot Number [id number] -Percent Used 100 -Lot number of Saline Used [id number] -Bleeding Controlled with Pressure -Treatment Response Procedure Tolerated Well -Debridement - Subq, 1st 20sq cm No -Apply Skin Sub - 1st 25 sq cm - Feet 1 -Epifix 18mm Disc 3 -Epifix Mesh (per sq cm) -Wound Comment(s) Pain Scale: 0-10 Numeric Is Patient Pain Free? Yes WC - Nurse 3 - General Ulcer D/C NN Start: 06/29/24 10:35 Freq: Status: Active Protocol: Activity Type Activity Date Activity User E-sign Co-sign Detail Recorded Client Recorded Date Recorded By Document 07/13/24 12:01 DL [id number] 07/13/24 12:03 DL Document 07/20/24 09:29 DL [id number] 07/20/24 09:35 DL 07/13/24 07/20/24 12:01 09:29 Wound Care Center Nurse 3 2. L plantar foot -Ulcer Cleansing Rinsed/ Not Cleansed Irrigated with Saline -Foul Odor after Cleansing No -Primary Dressing Applied Aquacel Extra, NonAdherent Contact Layer -Other Dressing AXIO FILL -Primary Dressing Covered/Secured with Dry Gauze & Dry Gauze & Roll Gauze, Roll Gauze, Secured with Secured with Tape Tape -Aquacel Extra 1 1-right plantar foot -Ulcer Cleansing Rinsed/ Irrigated with Saline -Foul Odor after Cleansing No -Primary Dressing Applied Aquacel Extra, NonAdherent Contact Layer -Other Dressing EPIMESH -Primary Dressing Covered/Secured with Dry Gauze & Dry Gauze & Roll Gauze, Roll Gauze, Secured with Secured with Tape Tape -Aquacel Extra 1 -Wound Comment(s) Adaptic to suture line. Dressing applied per Thalia mederos. taurus -Tubular Bandage Single Layer -Size of Tubigrip Used Size E -Size E ($) 1 Treatment Response Procedure Not Procedure Tolerated Well Tolerated Well Pain Scale: 0-10 Numeric Is Patient Pain Free? Yes Yes WC - Visit Discharge Discharge Condition Stable Stable Ambulatory Status Wheelchair Wheelchair Transportation [employer] [facility] trans Notes: Pt to ER with admit for surgery Facility Type [facility] Orders Sent Yes Additional Wound Wound debrided: Subfifth metatarsal head left foot Laterality: Left Wound Grade/Stage: Wyatt stage III Type of Debridement: Excisional debridement Anesthesia Used: 5% Lidocaine Gel Depth: Down to and including healthy tissue and in the subcutaneous layer Percentage of wound debrided: 100 Instrument Used: 5mm curette Tissue Removed: Fibrous, devitalized subcutaneous, biofilm, slough Severity: Fat Layer Exposed Amount of bleeding with debridement: Mild Bleeding Controlled with: Compression and gauze Patient tolerated procedure: Patient tolerated procedure well Assessment/Plan Assessment/Plan (1) Non-pressure chronic ulcer of other part of right foot with necrosis of muscle: CODE(S): L97.513 - Non-pressure chronic ulcer of other part of right foot with necrosis of muscle (2) Non-pressure chronic ulcer of other 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: CODE(S): L97.523 - Non-pressure chronic ulcer of other 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 (3) Cellulitis of foot, right: CODE(S): L03.115 - Cellulitis of right lower limb (4) Cellulitis of left lower limb: CODE(S): L03.116 - Cellulitis of left lower limb (5) Diabetes mellitus with diabetic polyneuropathy: CODE(S): E11.42 - Type 2 diabetes mellitus with diabetic polyneuropathy (6) Type 2 diabetes mellitus with foot ulcer: CODE(S): E11.621 - Type 2 diabetes mellitus with foot ulcer; L97.509 - Non-pressure chronic ulcer of other part of unspecified foot with unspecified severity (7) Ischemic cardiomyopathy: CODE(S): I25.5 - Ischemic cardiomyopathy (8) PAD (peripheral artery disease): CODE(S): I73.9 - Peripheral vascular disease, unspecified (9) Essential hypertension: CODE(S): I10 - Essential (primary) hypertension (10) Debility: CODE(S): R53.81 - Other malaise PLAN: Plan Patient seen and evaluated She is s/p excision of fifth metatarsal head right foot and left foot, debridement of ulceration to the level of muscle left foot and right foot. DOS 07/14/2024. POD #13 Sutures intact to dorsal aspect of Right and Left foot. No signs of infection. Sites appear to be healing well. Predebridement measurement: Right foot sub 5th met head 2.0 cm x 1.8 cm x 0.1 cm; left foot sub 5th met head 2.9 cm x 3.0 cm x 0.4 cm Ulceration did undergo debridement as noted in the clinical panel above. Postdebridement measurement Right foot 2.0 cm x 1.9 cm x 0.1 cm; Left foot 3.0 cm x 3.1 cm x 0.4 cm. EpiFix graft #7 applied to ulcerative bed today. Dressed with Adaptic touch and anchored with Steri-Strips to ulcer site, incision site dorsally painted with Betadine and dressed with Adaptic and dry sterile dressings were applied to right foot. Left foot ulceration site packed with Axiofill and dressed with Adaptic touch and anchored with Steri-Strips. Incision site dorsally painted with Betadine dressed with Adaptic and foot dressed with dry sterile dressing. Her ulcerations have slightly decreased in size following vs previous visit. Sites are healing well. Discussed suture removal from dorsal foot next week. Continue offloading with non-weight bearing status to bilateral lower extremity with assistance of wheelchair. She may weight-bear to heel bilateral foot only for transfers. She has been cleared for HBO therapy. Labs were ordered consisting of CBC with differential, Chem 12, CXR, EKG, prealbumin, awaiting results. Patient will also see Dr. Aj for physical and clearance prior to HBO therapy. LEAS was ordered, awaiting results. Currently on Oral antibiotics and has completed 6 weeks. Laboratory results performed 06/22/2024 demonstrate: WBC 7.4, Hgb 9.7, Hct 32.8, platelet 247, ESR 38, sodium 140, potassium 4.2, chloride 111, Carbon dioxide 26.0, BUN 42, Cr 1.67, HgbA1c 6.5%, AST 20, ALT 24, alkaline phosphatase 111, CRP 18.6, prealbumin 10. CRX was also completed 06/22/2024. Discussed continued elevation of lower extremities at times of rest to aid in edema control. Discussed rewrapping of Addy wrap's or utilize Tubigrip compression for continued edema control. Discussed continued adequate protein intake to aid in wound healing. Champ supplementation was also recommended. Discussed continued reduction of A1c to aid in wound healing. Recent A1c was 6% on 07/14/2024. Discussed daily foot checks as patient is diabetic and insensate to the foot. Discussed not ambulating barefoot and encouraged shoes to be worn once healed. Discussed overall she needs to reduce ambulation and rest with feet elevated to allow healing. I do feel she ambulates on the lateral aspect of foot due to unsteady gait and obesity with lead to her bilateral uclerations. Discussed signs and symptoms of infection. Patient and her son were instructed if there is progressive redness about the wound or top of the foot that moves up the leg, red streaking up the leg, purulent drainage from the wound site, increasing foul odor from the wound, or if she experiences fever greater than 101 degree accompanied by nausea, vomiting, chills that these are signs of a progressing infection and she should report to the ED for further evaluation and IV antibiotics. She is understanding of this. The following work up and care recommendations were made: Dressing: EpiFix, Adaptic touch, Steri-Strips to ulcerative site. Betadine soaked Adaptic to incision site and dry sterile dressing right foot. Left foot Betadine soaked Adaptic to incision site, Axiofill placed to plantar left foot, Adaptic touch anchored with Steri-Strips. Dry sterile dressing applied to left foot. Wash: Do not get wet bilateral foot Tissue growth optimization: EpiFix right foot, Axiofill Left foot Offload: Surgical shoe to right and left foot with fifth metatarsal head cut out. Vascular: DP and PT pulses weakly palpable. LEAS demonstrates mild arterial disease bilateral. Edema: Bilateral lower extremity edema secondary to CHF. Continued elevation of lower extremities. Will aid in edema control via Addy wrap. Recommend continued Lasix. Infection: Underwent bilateral fifth metatarsal head excision on 07/14/2024. Right fifth metatarsal head pathology demonstrates acute osteomyelitis, left fifth metatarsal head pathology demonstrates acute inflammatory reactive changes but negative for osteomyelitis. Pain: May take [id number] Tylenol for any discomfort however patient does have a insensate foot secondary to diabetic peripheral polyneuropathy. Host factors: DM type II with peripheral polyneuropathy, CHF, lower extremity edema, CKD, HTN, advanced age, obesity, PVD. She did see Dr. Aj for HBO clearance and had been cleared. I answered all the patient's questions. Will return to the wound care center in 1 week for continued postoperative care and continued debridement of ulceration sites. She is to call sooner for any questions or concerns.
[2024-07-27 09:33] LABS: Bedside Glucose 87 mg/dL (74-106)
== END 2024-07-27 23:59 | disposition home or self-care (01) ==
LOC: WC 08:30
PROVIDERS: PCP Family Medicine; Referring Provider Student in an Organized Health Care Education/Training Program; Visit Provider Student in an Organized Health Care Education/Training Program
DX: E11.621 Type 2 diabetes mellitus with foot ulcer (principal); L97.513 Non-pressure chronic ulcer of other part of right foot with necrosis of muscle; L97.523 Non-pressure chronic ulcer of other 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; L97.522 Non-pressure chronic ulcer of other part of left foot with fat layer exposed; I13.0 Hypertensive heart and chronic kidney disease with heart failure and stage 1 through stage 4 chronic kidney disease, or unspecified chronic kidney disease; I50.42 Chronic combined systolic (congestive) and diastolic (congestive) heart failure; E66.01 Morbid (severe) obesity due to excess calories; Z68.41 Body mass index [BMI] 40.0-44.9, adult; Z79.4 Long term (current) use of insulin; E11.42 Type 2 diabetes mellitus with diabetic polyneuropathy; E11.22 Type 2 diabetes mellitus with diabetic chronic kidney disease; E11.51 Type 2 diabetes mellitus with diabetic peripheral angiopathy without gangrene; L03.116 Cellulitis of left lower limb; L03.115 Cellulitis of right lower limb; I25.5 Ischemic cardiomyopathy; E78.5 Hyperlipidemia, unspecified; Z79.82 Long term (current) use of aspirin; I25.10 Atherosclerotic heart disease of native coronary artery without angina pectoris; Z87.891 Personal history of nicotine dependence; Z79.84 Long term (current) use of oral hypoglycemic drugs; N18.9 Chronic kidney disease, unspecified; Z79.899 Other long term (current) drug therapy; R60.0 Localized edema
CPT/HCPCS: 11042; 15275; 82962; 93005; 93923; 93970; 99213; Q4186; G0463

== ENCOUNTER → 2024-08-16 | Outpatient (REF) | payer MEDICARE, SELFPAY ==
[2024-08-16 09:21] LABS: Hematocrit 26.5 % (37-47); Hemoglobin 7.7 g/dL (12.0-15.0); Mean Corp Hgb Conc 29.1 g/dL (32-36); Mean Platelet Vol. 11.7 fl (6.2-12.0); Platelet Count 157 K/mm3 (150-450); RBC Distribution Width CV 17.8 % (11.6-14.6); RBC Distribution Width SD 56.1 fl (35.1-43.9); Red Blood Count 3.08 M/mm3 (4.2-5.4); White Blood Count 7.1 K/mm3 (4.4-11.0)
[2024-08-16 09:45] LABS: Anion Gap 5 (5-15); BUN 60 mg/dL (7-18); BUN/Creat Ratio 29.6 RATIO (10-20); Calcium,Total 9.3 mg/dL (8.5-10.1); Chloride 102 mmol/L (98-107); Creatinine, Serum 2.03 mg/dL (0.55-1.02); EST Glomerular Filtration Rate 25 mL/min (>60); Est Glom Filt Rate - Afr Amer 31 mL/min (>60); Glucose 114 mg/dL (74-106); Potassium 4.6 mmol/L (3.5-5.1); Sodium Level 139 mmol/L (136-145)
== END ==
LOC: OLS.SW 04:00
PROVIDERS: PCP Family Medicine; Referring Provider Family Medicine; Visit Provider Family Medicine
DX: E11.9 Type 2 diabetes mellitus without complications (principal)
CPT/HCPCS: 36415; 80048; 85027

== ENCOUNTER 2024-08-17 08:45 | Outpatient (RCR) | payer MEDICARE, SELFPAY ==
[2024-07-28 00:08] VITALS: BP 147/69; PULSE 76; RESP 18; TEMP 35.5; BMI 42.7
[2024-08-10 08:58] VITALS: BP 136/65; PULSE 68; RESP 18; TEMP 35.8; BMI 42.7
--- NOTE | 2024-08-10 09:39 | PCM.WC.PN ---
History of Present Illness Date of Service: 08/10/24 Chief Complaint: Plantar lateral fifth metatarsal head ulceration right foot History of Wound: Ms. Myers is a 74-year-old currently being seen at the wound center and managed for diabetic foot ulcer. Due to stage of diabetic foot ulcer, consideration is for hyperbaric oxygen therapy to aid in healing. No prior history of hyperbaric oxygen therapy. No current tobacco use, quit in 1989. History of diabetes mellitus type 2 and most recent A1c said to be about 6.5. Also history of congestive heart failure, last ejection fraction at 35%. Follows up routinely with cardiology. She reports shortness of breath even at rest. No significant history of seizures or claustrophobia. Also denies any significant visual or auditory concerns. History of recurrent ear infections as a child. She feels well otherwise. Subjective Subjective This is a 74-year-old female who follows up today for continued care of a subfifth metatarsal head ulceration of the right and left foot. She has remained nonweightbearing to both lower extremities with the assistance of a wheelchair. Underwent surgical intervention on 07/14/2024 for bilateral fifth metatarsal head excisions with debridement of the ulceration sites of the right and left foot. Continues doing well since surgical intervention and is currently in an SNF. They continue to change outer dressings as needed with grafting product in place. Glucose 70 mg/dL. She denies constitutional symptoms. Denies further complaints. Objective Data Objective Data Vital Signs: Vital Signs Temp Pulse Resp BP 96.4 F L 68 18 136/65 H 08/10/24 08:58 08/10/24 08:58 08/10/24 08:58 08/10/24 08:58 Weight: 120.202 kg Body Mass Index (BMI) 42.7 Physical Exam Const alert, oriented x3 and no apparent distress General Appearance: cooperative Nutritional Appearance: morbidly obese HEENT normocephalic Eyes General Eye: normal appearance of both eyes Neck General: normal visual inspection Lymph Lymphatic: no lymphadenopathy noted and no lymphedema noted Resp normal respiratory effort Cardio regular rate and regular rhythm Extremity no calf tenderness Extremity Narrative: Bilateral lower extremity: Vascular: DP and PT pulses weakly palpable. CFT less than 5 seconds to the digits. Temperature gradient is normal. Hair growth is absent to digits. Neurologic: Light touch sensation diminished. Gross sensation intact. Protective sensation absent. Musculoskeletal: Muscle strength 4 of 5 due to generalized weakness as patient does not ambulate much. Decreased range of motion of the ankle joint dorsiflexion with the knee extended without pain or crepitus. Decreased range of motion of the STJ, MTJ, and first MTPJ without pain or crepitus. No pain to palpation around ulcerative site subfifth metatarsal head. Dermatologic: There is a full-thickness ulceration noted to the plantar lateral fifth metatarsal head of the right foot. She is s/p excision of fifth metatarsal head right foot. Ulceration demonstrates mixed fibrogranular layer. No malodor noted. No palpable fluctuance/bogginess noted, no soft tissue crepitus, no purulent drainage. Sutures intact to dorsal foot. Left foot demonstrates ulceration subfifth metatarsal head with mixed fibrogranular tissue. She is s/p excision of fifth metatarsal head left foot. Sutures intact to dorsal foot. Ulceration site demonstrates no palpable fluctuance/bogginess, no purulent drainage, no malodor, no soft tissue crepitus. Bilateral lower extremities demonstrates edema with chronic venous stasis changes and dermatitis. Skin no rashes or lesions noted and skin turgor normal General Skin Exam: venous stasis and dermatitis Neuro moves all extremities Debridement Note Debridement Note Wound debrided: Subfifth metatarsal head right foot Laterality: Right Wound Grade/Stage: Wyatt stage III Type of Debridement: Excisional debridement Anesthesia Used: 5% Lidocaine Gel Depth: Down to and including healthy tissue and in the subcutaneous layer Percentage of wound debrided: 100 Instrument Used: 5mm curette Tissue Removed: Fibrous, devitalized subcutaneous, biofilm, slough Severity: Fat Layer Exposed Amount of bleeding with debridement: Mild Bleeding Controlled with: Compression and gauze Patient tolerated procedure: Patient tolerated procedure well Post-Debridement Measurements and Additional Note: Post-Debridement Measurements/Treatment DREW - Nurse 1 - General Ulcer Assessment Start: 08/10/24 08:57 Freq: Status: Active Protocol: KAY Activity Type Activity Date Activity User E-sign Co-sign Detail Recorded Client Recorded Date Recorded By Document 08/10/24 08:58 LIN [id number] 08/10/24 09:12 DL 08/10/24 08:58 DREW - Today's Visit Information Type of service Follow-up Visit (Physician/[employer] ) Arrival Mode Wheelchair Transfer Assistance Rudolph Lift Patient Identification Verified (Name & Yes ) Patient Requires Transmission-Based No Precautions Height and Weight Body Mass Index (BMI) 42.7 BMI Classification Obese Vital Signs Temperature (97.8 F-99.1 F) 96.4 F L Temperature Source Temporal Pulse Rate (60-100) 68 Pulse Location Monitor Respiratory Rate (12-18) 18 Respiratory rate source Observation Blood Pressure (90/60-120/80) 136/65 H Blood Pressure Mean (mm Hg) 88 Source Monitor History Since Last Visit- (Skip if this is Patient's initial visit) Have you changed medications since your No last visit? Any new allergies or adverse reactions No Had a fall/change in ADL's that may No increase risk of falls Signs or symptoms of abuse and/or No neglect since last visit Have you been in the hospital since your No last visit? Has dressing in place as prescribed Yes Has compression in place as prescribed Yes Has offloadiing in place as prescribed Yes Experienced any changes in pain level or No management Other Footwear non skid socks only Pain Scale: 0-10 Numeric Is Patient Pain Free? Yes WC - Nurse 1 - General Ulcer Measurement Start: 08/10/24 08:57 Freq: Status: Active Protocol: Activity Type Activity Date Activity User E-sign Co-sign Detail Recorded Client Recorded Date Recorded By Document 08/10/24 08:58 [id number] 08/10/24 09:12 DL 08/10/24 08:58 Wound Center Nurse 1 2. L plantar foot -Combined with other wound No -Current Size (cm) - Length 2 -Current Size (cm) - Width 3 -Current Size (cm) - Depth 0.1 -Total Square Cm 6 -Epithelialization None Present -Tunneling No -Undermining/Tunneling No -Circular Undermining No -Exudate Amt Medium -Exudate Type Serosanguineous -Wound Margin Distinct, Outline Attached -Granulation Amt Medium (34-66%) -Granulation Quality Red -Slough/Fibrin Yes -Necrosis Amt Medium (34-66%) -Necrotic Tissue Type Adherent Slough -Texture (Jaleesa-wound Skin Appearance) Assessed, Scarring -Moisture (Jaleesa-wound Skin Appearance) Assessed,Dry/ Scaly -Color (Jaleesa-wound Skin Appearance) Assessed -Temperature (Jaleesa-wound Skin No Abnormality Appearance) (Pt Warm) -Tenderness on Palpation (Jaleesa-wound No Skin Appearance) -Ulcer Cleansing Soap and Water -Foul Odor after Cleansing No -Anesthetic Used 5% Lidocaine Gel 1-right plantar foot -Combined with other wound No -Current Size (cm) - Length 0.9 -Current Size (cm) - Width 1 -Current Size (cm) - Depth 0.1 -Total Square Cm 0.9 -Epithelialization None Present -Tunneling No -Undermining/Tunneling No -Circular Undermining No -Exudate Amt Medium -Exudate Type Serosanguineous -Wound Margin Distinct, Outline Attached -Granulation Amt None Present (0 %) -Slough/Fibrin Yes -Necrosis Amt Large (67-100%) -Necrotic Tissue Type Adherent Slough -Texture (Jaleesa-wound Skin Appearance) Assessed -Moisture (Jaleesa-wound Skin Appearance) Assessed,Dry/ Scaly -Color (Jaleesa-wound Skin Appearance) Assessed -Temperature (Jaleesa-wound Skin No Abnormality Appearance) (Pt Warm) -Tenderness on Palpation (Jaleesa-wound No Skin Appearance) -Ulcer Cleansing Soap and Water -Foul Odor after Cleansing No -Anesthetic Used 5% Lidocaine Gel Additional Wound Wound debrided: Subfifth metatarsal head left foot Laterality: Left Wound Grade/Stage: Wyatt stage III Type of Debridement: Excisional debridement Anesthesia Used: 5% Lidocaine Gel Depth: Down to and including healthy tissue and in the subcutaneous layer Percentage of wound debrided: 100 Instrument Used: 5mm curette Tissue Removed: Fibrous, devitalized subcutaneous, biofilm, slough Severity: Fat Layer Exposed Amount of bleeding with debridement: Mild Bleeding Controlled with: Compression and gauze Patient tolerated procedure: Patient tolerated procedure well Assessment/Plan Assessment/Plan (1) Non-pressure chronic ulcer of other part of right foot with necrosis of muscle: CODE(S): L97.513 - Non-pressure chronic ulcer of other part of right foot with necrosis of muscle (2) Non-pressure chronic ulcer of other 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: CODE(S): L97.523 - Non-pressure chronic ulcer of other 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 (3) Diabetes mellitus with diabetic polyneuropathy: CODE(S): E11.42 - Type 2 diabetes mellitus with diabetic polyneuropathy (4) Type 2 diabetes mellitus with foot ulcer: CODE(S): E11.621 - Type 2 diabetes mellitus with foot ulcer; L97.509 - Non-pressure chronic ulcer of other part of unspecified foot with unspecified severity (5) PAD (peripheral artery disease): CODE(S): I73.9 - Peripheral vascular disease, unspecified (6) Debility: CODE(S): R53.81 - Other malaise (7) Chronic combined systolic and diastolic CHF (congestive heart failure): CODE(S): I50.42 - Chronic combined systolic (congestive) and diastolic (congestive) heart failure (8) Obesity: CODE(S): E66.9 - Obesity, unspecified PLAN: Plan Patient seen and evaluated She is s/p excision of fifth metatarsal head right foot and left foot, debridement of ulceration to the level of muscle left foot and right foot. DOS 07/14/2024. POD #27 Sutures intact to dorsal aspect of Right and Left foot. No signs of infection. Sites appear to be healing well. Sutures removed today to dorsal Right and Left foot atraumatically. Predebridement measurement: Right foot sub 5th met head 0.8 cm x 0.9 cm x 0.1 cm; left foot sub 5th met head 1.4 cm x 1.3 cm x 0.2 cm Ulceration did undergo debridement as noted in the clinical panel above. Postdebridement measurement Right foot 0.9 cm x 1.0 cm x 0.1 cm; Left foot 1.5 cm x 1.4 cm x 0.2 cm. EpiFix graft #8 applied to ulcerative bed today. Dressed with Adaptic touch and anchored with Steri-Strips to ulcer site, incision site dorsally painted with Betadine dry sterile dressings were applied to right foot. Left foot ulceration site packed with Axiofill and dressed with Adaptic touch and anchored with Steri-Strips. Incision site dorsally painted with Betadine dressed with dressed with dry sterile dressing. Her ulcerations have decreased in size vs previous visit. Sites are healing well. Continue offloading with non-weight bearing status to bilateral lower extremity with assistance of wheelchair. She may weight-bear to heel bilateral foot only for transfers. She has been cleared for HBO therapy. Labs were ordered consisting of CBC with differential, Chem 12, CXR, EKG, prealbumin, awaiting results. Patient will also see Dr. Aj for physical and clearance prior to HBO therapy. LEAS was ordered, awaiting results. Currently on Oral antibiotics and has completed 6 weeks. Laboratory results performed 06/22/2024 demonstrate: WBC 7.4, Hgb 9.7, Hct 32.8, platelet 247, ESR 38, sodium 140, potassium 4.2, chloride 111, Carbon dioxide 26.0, BUN 42, Cr 1.67, HgbA1c 6.5%, AST 20, ALT 24, alkaline phosphatase 111, CRP 18.6, prealbumin 10. CRX was also completed 06/22/2024. Discussed continued elevation of lower extremities at times of rest to aid in edema control. Discussed rewrapping of Addy wrap's or utilize Tubigrip compression for continued edema control. Discussed continued adequate protein intake to aid in wound healing. Champ supplementation was also recommended. Discussed continued reduction of A1c to aid in wound healing. Recent A1c was 6% on 07/14/2024. Discussed daily foot checks as patient is diabetic and insensate to the foot. Discussed not ambulating barefoot and encouraged shoes to be worn once healed. Discussed overall she needs to reduce ambulation and rest with feet elevated to allow healing. I do feel she ambulates on the lateral aspect of foot due to unsteady gait and obesity which lead to her bilateral ulcerations. Discussed signs and symptoms of infection. Patient and her son were instructed if there is progressive redness about the wound or top of the foot that moves up the leg, red streaking up the leg, purulent drainage from the wound site, increasing foul odor from the wound, or if she experiences fever greater than 101 degree accompanied by nausea, vomiting, chills that these are signs of a progressing infection and she should report to the ED for further evaluation and IV antibiotics. She is understanding of this. The following work up and care recommendations were made: Dressing: EpiFix, Adaptic touch, Steri-Strips to ulcerative site. Betadine soaked Adaptic to incision site and dry sterile dressing right foot. Left foot Betadine soaked Adaptic to incision site, Axiofill placed to plantar left foot, Adaptic touch anchored with Steri-Strips. Dry sterile dressing applied to left foot. Wash: Do not get wet bilateral foot Tissue growth optimization: EpiFix right foot, Axiofill Left foot Offload: Surgical shoe to right and left foot with fifth metatarsal head cut out. Vascular: DP and PT pulses weakly palpable. LEAS demonstrates mild arterial disease bilateral. Edema: Bilateral lower extremity edema secondary to CHF. Continued elevation of lower extremities. Will aid in edema control via Addy wrap. Recommend continued Lasix. Infection: Underwent bilateral fifth metatarsal head excision on 07/14/2024. Right fifth metatarsal head pathology demonstrates acute osteomyelitis, left fifth metatarsal head pathology demonstrates acute inflammatory reactive changes but negative for osteomyelitis. Pain: May take [id number] Tylenol for any discomfort however patient does have a insensate foot secondary to diabetic peripheral polyneuropathy. Host factors: DM type II with peripheral polyneuropathy, CHF, lower extremity edema, CKD, HTN, advanced age, obesity, PVD. She did see Dr. Aj for HBO clearance and had been cleared. I answered all the patient's questions. Will return to the wound care center in 1 week for continued postoperative care and continued debridement of ulceration sites. She is to call sooner for any questions or concerns.
--- NOTE | 2024-08-17 08:31 | PCM.WC.PN ---
History of Present Illness Date of Service: 08/17/24 Chief Complaint: Plantar lateral fifth metatarsal head ulceration right foot History of Wound: Ms. Myers is a 74-year-old currently being seen at the wound center and managed for diabetic foot ulcer. Due to stage of diabetic foot ulcer, consideration is for hyperbaric oxygen therapy to aid in healing. No prior history of hyperbaric oxygen therapy. No current tobacco use, quit in 1989. History of diabetes mellitus type 2 and most recent A1c said to be about 6.5. Also history of congestive heart failure, last ejection fraction at 35%. Follows up routinely with cardiology. She reports shortness of breath even at rest. No significant history of seizures or claustrophobia. Also denies any significant visual or auditory concerns. History of recurrent ear infections as a child. She feels well otherwise. Subjective Subjective This is a 74-year-old female who follows up today for continued care of a subfifth metatarsal head ulceration of the right and left foot. She has remained nonweightbearing to both lower extremities with the assistance of a wheelchair. Underwent surgical intervention on 07/14/2024 for bilateral fifth metatarsal head excisions with debridement of the ulceration sites of the right and left foot. Continues doing well since surgical intervention and is currently in an SNF. She is accompanied by her son today. SNF continues to change outer dressings as needed with grafting product in place. Glucose 75 mg/dL. She denies constitutional symptoms. Denies further complaints. Objective Data Objective Data Vital Signs: Vital Signs Temp Pulse Resp BP 96.4 F L 68 18 136/65 H 08/10/24 08:58 08/10/24 08:58 08/10/24 08:58 08/10/24 08:58 Weight: 120.202 kg Body Mass Index (BMI) 42.7 Physical Exam Const alert, oriented x3 and no apparent distress General Appearance: cooperative Nutritional Appearance: morbidly obese HEENT normocephalic Eyes General Eye: normal appearance of both eyes Neck General: normal visual inspection Lymph Lymphatic: no lymphadenopathy noted and no lymphedema noted Resp normal respiratory effort Cardio regular rate and regular rhythm Extremity no calf tenderness Extremity Narrative: Bilateral lower extremity: Vascular: DP and PT pulses weakly palpable. CFT less than 5 seconds to the digits. Temperature gradient is normal. Hair growth is absent to digits. Neurologic: Light touch sensation diminished. Gross sensation intact. Protective sensation absent. Musculoskeletal: Muscle strength 4 of 5 due to generalized weakness as patient does not ambulate much. Decreased range of motion of the ankle joint dorsiflexion with the knee extended without pain or crepitus. Decreased range of motion of the STJ, MTJ, and first MTPJ without pain or crepitus. No pain to palpation around ulcerative site subfifth metatarsal head. Dermatologic: There is a full-thickness ulceration noted to the plantar lateral fifth metatarsal head of the right foot. She is s/p excision of fifth metatarsal head right foot. Ulceration demonstrates healthy granular layer. No malodor noted. No palpable fluctuance/bogginess noted, no soft tissue crepitus, no purulent drainage. Cicatrix dorsal 5th metatarsal. Left foot demonstrates ulceration subfifth metatarsal head with healthy granular tissue. She is s/p excision of fifth metatarsal head left foot. Cicatrix to dorsal foot. Ulceration site demonstrates no palpable fluctuance/bogginess, no purulent drainage, no malodor, no soft tissue crepitus. Bilateral lower extremities demonstrates edema with chronic venous stasis changes and dermatitis. Skin no rashes or lesions noted and skin turgor normal General Skin Exam: venous stasis and dermatitis Neuro moves all extremities Debridement Note Debridement Note Wound debrided: Subfifth metatarsal right foot Laterality: Right Wound Grade/Stage: Wyatt stage III Type of Debridement: Excisional debridement Anesthesia Used: 5% Lidocaine Gel Depth: Down to and including healthy tissue and in the subcutaneous layer Percentage of wound debrided: 100 Instrument Used: 5mm curette Tissue Removed: Fibrous, devitalized subcutaneous, biofilm, slough Severity: Fat Layer Exposed Amount of bleeding with debridement: Mild Bleeding Controlled with: Compression and gauze Patient tolerated procedure: Patient tolerated procedure well Post-Debridement Measurements and Additional Note: Post-Debridement Measurements/Treatment - Nurse 1 - General Ulcer Assessment Start: 08/10/24 08:57 Freq: Status: Active Protocol: KAY Activity Type Activity Date Activity User E-sign Co-sign Detail Recorded Client Recorded Date Recorded By Document 08/10/24 08:58 DL [id number] 08/10/24 09:12 DL 08/10/24 08:58 - Today's Visit Information Type of service Follow-up Visit (Physician/FORGE HAND ) Arrival Mode Wheelchair Transfer Assistance Rudolph Lift Patient Identification Verified (Name & Yes ) Patient Requires Transmission-Based No Precautions Height and Weight Body Mass Index (BMI) 42.7 BMI Classification Obese Vital Signs Temperature (97.8 F-99.1 F) 96.4 F L Temperature Source Temporal Pulse Rate (60-100) 68 Pulse Location Monitor Respiratory Rate (12-18) 18 Respiratory rate source Observation Blood Pressure (90/60-120/80) 136/65 H Blood Pressure Mean (mm Hg) 88 Source Monitor History Since Last Visit- (Skip if this is Patient's initial visit) Have you changed medications since your No last visit? Any new allergies or adverse reactions No Had a fall/change in ADL's that may No increase risk of falls Signs or symptoms of abuse and/or No neglect since last visit Have you been in the hospital since your No last visit? Has dressing in place as prescribed Yes Has compression in place as prescribed Yes Has offloadiing in place as prescribed Yes Experienced any changes in pain level or No management Other Footwear non skid socks only Pain Scale: 0-10 Numeric Is Patient Pain Free? Yes WC - Nurse 1 - General Ulcer Measurement Start: 08/10/24 08:57 Freq: Status: Active Protocol: Activity Type Activity Date Activity User E-sign Co-sign Detail Recorded Client Recorded Date Recorded By Document 08/10/24 08:58 [id number] 08/10/24 09:12 DL 08/10/24 08:58 Wound Center Nurse 1 2. L plantar foot -Combined with other wound No -Current Size (cm) - Length 2 -Current Size (cm) - Width 3 -Current Size (cm) - Depth 0.1 -Total Square Cm 6 -Epithelialization None Present -Tunneling No -Undermining/Tunneling No -Circular Undermining No -Exudate Amt Medium -Exudate Type Serosanguineous -Wound Margin Distinct, Outline Attached -Granulation Amt Medium (34-66%) -Granulation Quality Red -Slough/Fibrin Yes -Necrosis Amt Medium (34-66%) -Necrotic Tissue Type Adherent Slough -Texture (Jaleesa-wound Skin Appearance) Assessed, Scarring -Moisture (Jaleesa-wound Skin Appearance) Assessed,Dry/ Scaly -Color (Jaleesa-wound Skin Appearance) Assessed -Temperature (Jaleesa-wound Skin No Abnormality Appearance) (Pt Warm) -Tenderness on Palpation (Jaleesa-wound No Skin Appearance) -Ulcer Cleansing Soap and Water -Foul Odor after Cleansing No -Anesthetic Used 5% Lidocaine Gel 1-right plantar foot -Combined with other wound No -Current Size (cm) - Length 0.9 -Current Size (cm) - Width 1 -Current Size (cm) - Depth 0.1 -Total Square Cm 0.9 -Epithelialization None Present -Tunneling No -Undermining/Tunneling No -Circular Undermining No -Exudate Amt Medium -Exudate Type Serosanguineous -Wound Margin Distinct, Outline Attached -Granulation Amt None Present (0 %) -Slough/Fibrin Yes -Necrosis Amt Large (67-100%) -Necrotic Tissue Type Adherent Slough -Texture (Jaleesa-wound Skin Appearance) Assessed -Moisture (Jaleesa-wound Skin Appearance) Assessed,Dry/ Scaly -Color (Jaleesa-wound Skin Appearance) Assessed -Temperature (Jaleesa-wound Skin No Abnormality Appearance) (Pt Warm) -Tenderness on Palpation (Jaleesa-wound No Skin Appearance) -Ulcer Cleansing Soap and Water -Foul Odor after Cleansing No -Anesthetic Used 5% Lidocaine Gel WC - Nurse 2 - General Ulcer CM Notes Start: 08/10/24 08:57 Freq: Status: Active Protocol: Activity Type Activity Date Activity User E-sign Co-sign Detail Recorded Client Recorded Date Recorded By Document 08/10/24 09:31 [facility] [id number] 08/10/24 09:58 [facility] 08/10/24 09:31 Wound Center Nurse 2 2. L plantar foot -Time 09:32 -Correct Patient Yes -Correct Side, Site, Position Yes -Correct Procedure Yes -Procedure Performed Yes -Type of Procedure Debridement -Clinical Debridement Subcutaneous -Tissue Removed Subcutaneous -Post Debridement (cm) - Length 1.5 -Post Debridement (cm) - Width 1.4 -Post Debridement (cm) - Depth 0.2 -Total Square (Post) (cm) 2.10 -Area of Debridement (cm) - Length 1.5 -Area of Debridement (cm) - Width 1.4 -Total Square (Area) (cm) 2.10 -Tunneling No -Undermining/Tunneling No -Circular Undermining No -Wound/Ulcer Outcome Not Healed -Ulcer Cleansing Rinsed/ Irrigated with Saline -Foul Odor after Cleansing No -Bleeding Controlled with Pressure -Treatment Response Procedure Tolerated Well -Offloading Yes -Type of Offloading Other -Other Type of Offloading heel wt bearing for transfer only -Debridement - Subq, 1st 20sq cm Yes -Wound Comment(s) sutures removed . 1-right plantar foot -Time 09:32 -Correct Patient Yes -Correct Side, Site, Position Yes -Correct Procedure Yes -Procedure Performed Yes -Type of Procedure Debridement -Clinical Debridement Subcutaneous -Tissue Removed Subcutaneous -Post Debridement (cm) - Length 0.9 -Post Debridement (cm) - Width 1 -Post Debridement (cm) - Depth 0.1 -Total Square (Post) (cm) 0.9 -Area of Debridement (cm) - Length 0.9 -Area of Debridement (cm) - Width 1 -Total Square (Area) (cm) 0.9 -Tunneling No -Undermining/Tunneling No -Circular Undermining No -Wound/Ulcer Outcome Not Healed -Ulcer Cleansing Rinsed/ Irrigated with Saline -Foul Odor after Cleansing No -Bioengineered Tissue No -Type of Bioengineered Tissue Epifix 18mm Disc -Expiration Date 02/25/29 -Product Lot Number [id number] -Percent Used 100 -Lot number of Saline Used [id number] -Bleeding Controlled with Pressure -Treatment Response Procedure Tolerated Well -Debridement - Subq, 1st 20sq cm No -Apply Skin Sub - 1st 25 sq cm - Feet 1 -Epifix 18mm Disc 3 -Wound Comment(s) sutures removed from adjacent incision Pain Scale: 0-10 Numeric Is Patient Pain Free? Yes WC - Nurse 3 - General Ulcer D/C NN Start: 08/10/24 08:57 Freq: Status: Active Protocol: Activity Type Activity Date Activity User E-sign Co-sign Detail Recorded Client Recorded Date Recorded By Document 08/10/24 10:18 DL [id number] 08/10/24 10:19 DL 08/10/24 10:18 Wound Care Center Nurse 3 2. L plantar foot -Foul Odor after Cleansing No -Primary Dressing Applied Aquacel Extra -Other Dressing Epifix -Primary Dressing Covered/Secured with Dry Gauze & Roll Gauze, Secured with Tape -Aquacel Extra 1 1-right plantar foot -Foul Odor after Cleansing No -Other Dressing Epifix/aquacel Ex -Primary Dressing Covered/Secured with Dry Gauze & Roll Gauze, Secured with Tape taurus -Tubular Bandage Single Layer -Size of Tubigrip Used Size E -Size E ($) 1 Treatment Response Procedure Tolerated Well Pain Scale: 0-10 Numeric Is Patient Pain Free? Yes WC - Visit Discharge Discharge Condition Stable Ambulatory Status Wheelchair Transportation ECF trans Facility Type Group Home Care Facility Orders Sent Yes Additional Wound Wound debrided: Subfifth metatarsal left foot Laterality: Left Wound Grade/Stage: Wyatt stage III Type of Debridement: Excisional debridement Anesthesia Used: 5% Lidocaine Gel Depth: Down to and including healthy tissue and in the subcutaneous layer Percentage of wound debrided: 100 Instrument Used: 5mm curette Tissue Removed: Fibrous, devitalized subcutaneous, biofilm, slough Severity: Fat Layer Exposed Amount of bleeding with debridement: Mild Bleeding Controlled with: Compression and gauze Patient tolerated procedure: Patient tolerated procedure well Assessment/Plan Assessment/Plan (1) Non-pressure chronic ulcer of other part of right foot with necrosis of muscle: CODE(S): L97.513 - Non-pressure chronic ulcer of other part of right foot with necrosis of muscle (2) Non-pressure chronic ulcer of other 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: CODE(S): L97.523 - Non-pressure chronic ulcer of other 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 (3) Diabetes mellitus with diabetic polyneuropathy: CODE(S): E11.42 - Type 2 diabetes mellitus with diabetic polyneuropathy (4) Type 2 diabetes mellitus with foot ulcer: CODE(S): E11.621 - Type 2 diabetes mellitus with foot ulcer; L97.509 - Non-pressure chronic ulcer of other part of unspecified foot with unspecified severity (5) PAD (peripheral artery disease): CODE(S): I73.9 - Peripheral vascular disease, unspecified (6) Debility: CODE(S): R53.81 - Other malaise (7) Chronic combined systolic and diastolic CHF (congestive heart failure): CODE(S): I50.42 - Chronic combined systolic (congestive) and diastolic (congestive) heart failure (8) Obesity: CODE(S): E66.9 - Obesity, unspecified PLAN: Plan Patient seen and evaluated She is s/p excision of fifth metatarsal head right foot and left foot, debridement of ulceration to the level of muscle left foot and right foot. DOS 07/14/2024. POD #34 Cicatrix to dorsal aspect of Right and Left foot. No signs of infection. Sites continue to heal well. Predebridement measurement: Right foot sub 5th met head 0.5 cm x 0.4 cm x 0.1 cm; left foot sub 5th met head 0.9 cm x 1.0 cm x 0.1 cm Ulceration did undergo debridement as noted in the clinical panel above. Postdebridement measurement Right foot 0.6 cm x 0.5 cm x 0.1 cm; Left foot 1.0 cm x 1.1 cm x 0.1 cm. EpiFix graft #9 applied to ulcerative bed of Right foot today. Dressed with Adaptic touch and anchored with Steri-Strips to ulcer site, incision site dorsally painted with Betadine dry sterile dressings were applied to right foot. Left foot ulceration site had EpiFix graft #1 applied to ulcerative bed and dressed with Adaptic touch and anchored with Steri-Strips. No signs of infection at grafting sites. Her ulcerations have continued to decreased in size vs previous visit. Sites are healing well overall. At this time we will transition to protective weightbearing to right and left foot with the assistance of a surgical shoe. She will also be permitted to be discharged from SNF to return home for continued care for the holiday season as ulcerations are nearing closure. She has been cleared for HBO therapy. Labs were ordered consisting of CBC with differential, Chem 12, CXR, EKG, prealbumin, awaiting results. Patient will also see Dr. Aj for physical and clearance prior to HBO therapy. LEAS was ordered, awaiting results. Currently on Oral antibiotics and has completed 6 weeks. Laboratory results performed 06/22/2024 demonstrate: WBC 7.4, Hgb 9.7, Hct 32.8, platelet 247, ESR 38, sodium 140, potassium 4.2, chloride 111, Carbon dioxide 26.0, BUN 42, Cr 1.67, HgbA1c 6.5%, AST 20, ALT 24, alkaline phosphatase 111, CRP 18.6, prealbumin 10. CRX was also completed 06/22/2024. Discussed continued elevation of lower extremities at times of rest to aid in edema control. Discussed rewrapping of Addy wrap's or utilize Tubigrip compression for continued edema control. Discussed continued adequate protein intake to aid in wound healing. Champ supplementation was also recommended. Discussed continued reduction of A1c to aid in wound healing. Recent A1c was 6% on 07/14/2024. Discussed daily foot checks as patient is diabetic and insensate to the foot. Discussed not ambulating barefoot and encouraged shoes to be worn once healed. Discussed overall she needs to reduce ambulation and rest with feet elevated to allow healing. I do feel she ambulates on the lateral aspect of foot due to unsteady gait and obesity which lead to her bilateral ulcerations. Discussed signs and symptoms of infection. Patient and her son were instructed if there is progressive redness about the wound or top of the foot that moves up the leg, red streaking up the leg, purulent drainage from the wound site, increasing foul odor from the wound, or if she experiences fever greater than 101 degree accompanied by nausea, vomiting, chills that these are signs of a progressing infection and she should report to the ED for further evaluation and IV antibiotics. She is understanding of this. The following work up and care recommendations were made: Dressing: EpiFix, Adaptic touch, Steri-Strips to ulcerative site Right and Left foot and dressed with Adaptic touch anchored with Steri-Strips and DSD. Wash: Do not get wet bilateral foot Tissue growth optimization: EpiFix right foot, EpiFix Left foot Offload: Surgical shoe to right and left foot with fifth metatarsal head cut out. Vascular: DP and PT pulses weakly palpable. LEAS demonstrates mild arterial disease bilateral. Edema: Bilateral lower extremity edema secondary to CHF. Continued elevation of lower extremities. Will aid in edema control via Addy wrap. Recommend continued Lasix. Infection: Underwent bilateral fifth metatarsal head excision on 07/14/2024. Right fifth metatarsal head pathology demonstrates acute osteomyelitis, left fifth metatarsal head pathology demonstrates acute inflammatory reactive changes but negative for osteomyelitis. Pain: May take [id number] Tylenol for any discomfort however patient does have a insensate foot secondary to diabetic peripheral polyneuropathy. Host factors: DM type II with peripheral polyneuropathy, CHF, lower extremity edema, CKD, HTN, advanced age, obesity, PVD. She did see Dr. Aj for HBO clearance and had been cleared, but with ulcerations healing post-surgical intervention we will refrain from performing HBO dives. Due to she will return in 2 weeks. I answered all the patient's questions. Will return to the wound care center in 2 weeks for continued postoperative care and continued debridement of ulceration sites. She is to call sooner for any questions or concerns.
[2024-08-17 08:32] VITALS: BP 118/48; PULSE 60; RESP 18; TEMP 35.8; BMI 42.7
== END 2024-08-26 23:59 | disposition home or self-care (01) ==
LOC: WC 08:45
PROVIDERS: PCP Family Medicine; Referring Provider Student in an Organized Health Care Education/Training Program; Visit Provider Student in an Organized Health Care Education/Training Program
DX: E11.621 Type 2 diabetes mellitus with foot ulcer (principal); L97.512 Non-pressure chronic ulcer of other part of right foot with fat layer exposed; I50.42 Chronic combined systolic (congestive) and diastolic (congestive) heart failure; Z68.41 Body mass index [BMI] 40.0-44.9, adult; E11.51 Type 2 diabetes mellitus with diabetic peripheral angiopathy without gangrene; E11.42 Type 2 diabetes mellitus with diabetic polyneuropathy; E66.9 Obesity, unspecified; Z87.891 Personal history of nicotine dependence
CPT/HCPCS: 11042; 15275; Q4186

== ENCOUNTER 2024-08-19 20:58 | Inpatient (IN) | payer MEDICARE, SELFPAY ==
[2024-08-19 20:59] VITALS: BP 149/119; PULSE 58; RESP 23; TEMP 33.8; O2SAT 100; BMI 43.6
[2024-08-19 21:05] VITALS: BP 149/119; PULSE 66; RESP 24; TEMP 33.8; O2SAT 100
[2024-08-19 21:28] LABS: Bedside Glucose 127 mg/dL (74-106)
[2024-08-19 21:36] LABS: Mucous, Urine 0 SEEN /hpf (<or=2+); Red Blood Cells-Urine 0 SEEN /hpf (0-5); Squamous Epithelial Cells - UA 0 SEEN /hpf (5-10)
[2024-08-19 21:36] LABS: Absolute Lymphocyte Count 0.79 X10^3/uL (0.83-4.51); Absolute Neutrophil Count 6.1 X10^3/uL (2.0-7.7); Basophil# 0.07 X10^3/uL; Basophil% 0.9 % (0-1); Eosinophil# 0.18 X10^3/uL; Eosinophils% 2.3 % (0-5); Hematocrit 27.2 % (37-47); Hemoglobin 8.3 g/dL (12.0-15.0); Lymphocyte # 0.79 X10^3/ul (0.83-4.51); Lymphocyte % 10.1 % (19-41); Mean Corp Hgb Conc 30.5 g/dL (32-36); Mean Corpuscular Hgb 25.5 pg (27.0-32.0); Mean Corpuscular Volume 83.4 fL (81-99); Monocyte# 0.59 X10^3/uL; Monocyte% 7.6 % (0-10); NRBC Flagged by Analyzer 0 % (0-5); Neutrophil # 6.12 X10^3/uL (2.7-7.7); Neutrophil % 78.5 % (47-70); Platelet Count 209 K/mm3 (150-450); RBC Distribution Width CV 17.8 % (11.6-14.6); RBC Distribution Width SD 54.8 fl (35.1-43.9); Red Blood Count 3.26 M/mm3 (4.2-5.4); White Blood Count 7.8 K/mm3 (4.4-11.0)
[2024-08-19 21:41] LABS: Color, Urine Yellow (Yellow); Glucose, Dipstick 50 mg/dl (Normal); Ketone-Dipstick Negative (Negative); Leukocyte Esterase-Dipstick 25 /ul (Negative); Nitrite-Dipstick Negative (Negative); Occult Blood-Urine 10 /ul (Negative); Protein-Dipstick 15 mg/dl (Negative); Specific Gravity, Urine 1.015 (1.002-1.030); Urine Bilirubin Dipstick Negative (Negative); Urine Clarity Sl. Cloudy (Clear); Urine Urobilinogen Normal (Normal)
[2024-08-19 22:05] VITALS: BP 120/63; PULSE 65; RESP 17; TEMP 34.6; O2SAT 93
[2024-08-19 22:11] LABS: Bacteria 3+ /hpf (None Seen); White Blood Cells 0-5 SEEN /hpf (0-5)
[2024-08-19 22:15] LABS: ALB/GLOB Ratio 0.8 RATIO (0.9-2.4); AST(SGOT) 16 U/L (15-37); Alanine Aminotransfer ALT/SGPT 17 U/L (13-56); Alkaline Phosphatase 67 U/L (45-117); Anion Gap 6 (5-15); BUN 65 mg/dL (7-18); BUN/Creat Ratio 27.9 RATIO (10-20); Calcium,Total 9.1 mg/dL (8.5-10.1); Chloride 100 mmol/L (98-107); Creatinine, Serum 2.33 mg/dL (0.55-1.02); EST Glomerular Filtration Rate 22 mL/min (>60); Est Glom Filt Rate - Afr Amer 26 mL/min (>60); Estimated Creatinine Clearance 27.44 ml/min; Glucose 105 mg/dL (74-106); Potassium 4.2 mmol/L (3.5-5.1); Sodium Level 136 mmol/L (136-145)
[2024-08-19 22:33] VITALS: BP 127/63; PULSE 84; RESP 17; O2SAT 93
[2024-08-19 22:48] LABS: Bedside Glucose 75 mg/dL (74-106)
[2024-08-19 23:00] VITALS: BP 129/56; BP 129/58; PULSE 65; RESP 17; RESP 20; TEMP 36.1; O2SAT 93
[2024-08-19 23:46] VITALS: BP 129/56; PULSE 65; RESP 19; TEMP 36.1; O2SAT 98
[2024-08-19 23:56] VITALS: BMI 43.8
[2024-08-20] VITALS (9 sets, daily range): BP systolic 93–144; BP diastolic 46–82; PULSE 69–78; RESP 18; TEMP 35.8–37.2; O2SAT 96–98; BMI 43.8
[2024-08-20] MEDS: Dextrose 5%/0.9% NaCl 1,000 ML 50 ML IV (00:36)
[2024-08-20] MEDS: 0.9% Saline Lock 10 ML Syringe IV (00:39)
[2024-08-20 06:16] LABS: Absolute Lymphocyte Count 0.94 X10^3/uL (0.83-4.51); Absolute Neutrophil Count 5.4 X10^3/uL (2.0-7.7); Basophil# 0.04 X10^3/uL; Basophil% 0.6 % (0-1); Eosinophils% 1.4 % (0-5); Hematocrit 26.2 % (37-47); Hemoglobin 7.9 g/dL (12.0-15.0); Lymphocyte # 0.94 X10^3/ul (0.83-4.51); Lymphocyte % 13.6 % (19-41); Mean Corp Hgb Conc 30.2 g/dL (32-36); Mean Corpuscular Hgb 24.9 pg (27.0-32.0); Mean Corpuscular Volume 82.6 fL (81-99); Mean Platelet Vol. 10.6 fl (6.2-12.0); Monocyte# 0.44 X10^3/uL; Monocyte% 6.4 % (0-10); NRBC Flagged by Analyzer 0 % (0-5); Neutrophil # 5.35 X10^3/uL (2.7-7.7); Neutrophil % 77.6 % (47-70); Platelet Count 196 K/mm3 (150-450); RBC Distribution Width CV 17.6 % (11.6-14.6); Red Blood Count 3.17 M/mm3 (4.2-5.4); White Blood Count 6.9 K/mm3 (4.4-11.0)
[2024-08-20] MEDS: Heparin Injection (Vial) 5,000 UNIT/ML VIAL 5000 UNIT SC ×3 (06:22→21:28)
[2024-08-20 06:43] LABS: Bedside Glucose 111 mg/dL (74-106)
[2024-08-20 06:45] LABS: ALB/GLOB Ratio 0.8 RATIO (0.9-2.4); AST(SGOT) 15 U/L (15-37); Alanine Aminotransfer ALT/SGPT 17 U/L (13-56); Albumin, Serum 2.8 g/dL (3.2-5.0); Alkaline Phosphatase 62 U/L (45-117); Anion Gap 8 (5-15); BUN 60 mg/dL (7-18); BUN/Creat Ratio 29.9 RATIO (10-20); Calcium,Total 8.8 mg/dL (8.5-10.1); Chloride 100 mmol/L (98-107); Creatinine, Serum 2.01 mg/dL (0.55-1.02); EST Glomerular Filtration Rate 26 mL/min (>60); Est Glom Filt Rate - Afr Amer 31 mL/min (>60); Estimated Creatinine Clearance 28.69 ml/min; Globulin 3.7 g/dL (2.2-4.2); Glucose 110 mg/dL (74-106); Magnesium 2.1 mg/dL (1.6-2.6); Phosphorus 4.3 mg/dL (2.5-4.9); Potassium 4.1 mmol/L (3.5-5.1); Protein, Total 6.5 g/dL (6.4-8.2); Sodium Level 136 mmol/L (136-145)
[2024-08-20 08:34] LABS: Hemoglobin A1c 5.2 % (3.8-5.6)
[2024-08-20] MEDS: Carvedilol 25 MG Tablet PO (09:13)
[2024-08-20] MEDS: amLODIPine 5 MG Tablet PO (09:13)
[2024-08-20] MEDS: Aspirin E.C. 81 MG Tablet PO (09:13)
[2024-08-20] MEDS: Empagliflozin 25 MG Tablet PO (09:14)
[2024-08-20] MEDS: Furosemide 40 MG Tablet PO (09:14)
[2024-08-20] MEDS: Losartan Potassium 100 MG Tablet PO (09:14)
[2024-08-20] MEDS: Vitamin B Comp W-C Capsule 1 CAP PO (09:14)
[2024-08-20] MEDS: FLUoxetine 10 MG Capsule PO (09:14)
[2024-08-20] MEDS: metOLazone 5 MG Tablet PO (09:15)
[2024-08-20] MEDS: Insulin Lispro 100 UNIT/ML INSULN.PEN SC ×3 (11:39→21:28)
[2024-08-20 11:54] LABS: Bedside Glucose 151 mg/dL (74-106)
[2024-08-20 12:42] LABS: Bedside Glucose 155 mg/dL (74-106)
[2024-08-20] MEDS: Carvedilol 12.5 MG Tablet PO (16:36)
[2024-08-20 16:51] LABS: Bedside Glucose 190 mg/dL (74-106)
[2024-08-20] MEDS: Atorvastatin Calcium 40 MG Tablet PO (21:28)
[2024-08-20 21:52] LABS: Bedside Glucose 198 mg/dL (74-106)
[2024-08-21] VITALS (12 sets, daily range): BP systolic 117–139; BP diastolic 42–55; PULSE 67–72; RESP 16–18; TEMP 36–37.1; O2SAT 85–100; BMI 43.4
[2024-08-21 05:32] LABS: Absolute Lymphocyte Count 1.24 X10^3/uL (0.83-4.51); Absolute Neutrophil Count 4.6 X10^3/uL (2.0-7.7); Basophil# 0.06 X10^3/uL; Basophil% 0.9 % (0-1); Eosinophil# 0.18 X10^3/uL; Eosinophils% 2.7 % (0-5); Hemoglobin 7.2 g/dL (12.0-15.0); Lymphocyte # 1.24 X10^3/ul (0.83-4.51); Lymphocyte % 18.7 % (19-41); Mean Corpuscular Hgb 25.3 pg (27.0-32.0); Mean Corpuscular Volume 84.2 fL (81-99); Mean Platelet Vol. 10.5 fl (6.2-12.0); Monocyte# 0.53 X10^3/uL; NRBC Flagged by Analyzer 0 % (0-5); Neutrophil % 69.2 % (47-70); Platelet Count 191 K/mm3 (150-450); RBC Distribution Width CV 18.3 % (11.6-14.6); RBC Distribution Width SD 55.8 fl (35.1-43.9); Red Blood Count 2.85 M/mm3 (4.2-5.4); White Blood Count 6.6 K/mm3 (4.4-11.0)
[2024-08-21 05:51] LABS: Anion Gap 6 (5-15); BUN 53 mg/dL (7-18); BUN/Creat Ratio 26.4 RATIO (10-20); Calcium,Total 8.5 mg/dL (8.5-10.1); Chloride 105 mmol/L (98-107); Creatinine, Serum 2.01 mg/dL (0.55-1.02); EST Glomerular Filtration Rate 26 mL/min (>60); Est Glom Filt Rate - Afr Amer 31 mL/min (>60); Estimated Creatinine Clearance 28.57 ml/min; Glucose 155 mg/dL (74-106); Potassium 4.3 mmol/L (3.5-5.1); Sodium Level 138 mmol/L (136-145)
[2024-08-21] MEDS: Heparin Injection (Vial) 5,000 UNIT/ML VIAL 5000 UNIT SC ×3 (06:22→22:05)
[2024-08-21 06:43] LABS: Bedside Glucose 148 mg/dL (74-106)
[2024-08-21 08:08] LABS: Vitamin B12 635 pg/mL (211-911)
[2024-08-21] MEDS: metOLazone 5 MG Tablet PO (10:06)
[2024-08-21] MEDS: Vitamin B Comp W-C Capsule 1 CAP PO (10:06)
[2024-08-21] MEDS: FLUoxetine 10 MG Capsule PO (10:06)
[2024-08-21] MEDS: Furosemide 40 MG Tablet PO (10:06)
[2024-08-21] MEDS: Aspirin E.C. 81 MG Tablet PO (10:07)
[2024-08-21] MEDS: Empagliflozin 10 MG Tablet PO (10:07)
[2024-08-21] MEDS: Carvedilol 12.5 MG Tablet PO ×2 (10:08→17:15)
[2024-08-21] MEDS: Insulin Lispro 100 UNIT/ML INSULN.PEN SC ×3 (11:55→22:05)
[2024-08-21 12:17] LABS: Bedside Glucose 223 mg/dL (74-106)
[2024-08-21] MEDS: Pantoprazole Sodium 40 MG Tablet PO (17:11)
[2024-08-21 17:22] LABS: Bedside Glucose 229 mg/dL (74-106)
[2024-08-21] MEDS: Atorvastatin Calcium 40 MG Tablet PO (22:06)
[2024-08-21] MEDS: 0.9% Saline Lock 10 ML Syringe IV (22:07)
[2024-08-21 22:38] LABS: Bedside Glucose 237 mg/dL (74-106)
[2024-08-22] VITALS (7 sets, daily range): BP systolic 128–138; BP diastolic 50–55; PULSE 67–72; RESP 16–18; TEMP 35.6–36.4; O2SAT 95–100; BMI 44.0
[2024-08-22 07:01] LABS: Absolute Lymphocyte Count 1.09 X10^3/uL (0.83-4.51); Absolute Neutrophil Count 4.8 X10^3/uL (2.0-7.7); Basophil# 0.04 X10^3/uL; Basophil% 0.6 % (0-1); Eosinophil# 0.18 X10^3/uL; Eosinophils% 2.7 % (0-5); Hematocrit 25.7 % (37-47); Hemoglobin 7.4 g/dL (12.0-15.0); Lymphocyte # 1.09 X10^3/ul (0.83-4.51); Lymphocyte % 16.1 % (19-41); Mean Corp Hgb Conc 28.8 g/dL (32-36); Mean Corpuscular Hgb 24.6 pg (27.0-32.0); Mean Corpuscular Volume 85.4 fL (81-99); Mean Platelet Vol. 10.6 fl (6.2-12.0); Monocyte# 0.66 X10^3/uL; Monocyte% 9.7 % (0-10); NRBC Flagged by Analyzer 0 % (0-5); Neutrophil # 4.79 X10^3/uL (2.7-7.7); Neutrophil % 70.5 % (47-70); Platelet Count 199 K/mm3 (150-450); RBC Distribution Width CV 18.4 % (11.6-14.6); RBC Distribution Width SD 57.2 fl (35.1-43.9); Red Blood Count 3.01 M/mm3 (4.2-5.4); White Blood Count 6.8 K/mm3 (4.4-11.0)
[2024-08-22] MEDS: Heparin Injection (Vial) 5,000 UNIT/ML VIAL 5000 UNIT SC (07:16)
[2024-08-22] MEDS: Insulin Lispro 100 UNIT/ML INSULN.PEN SC ×2 (07:16→11:57)
[2024-08-22 07:32] LABS: Anion Gap 7 (5-15); BUN 48 mg/dL (7-18); Calcium,Total 8.9 mg/dL (8.5-10.1); Chloride 104 mmol/L (98-107); EST Glomerular Filtration Rate 26 mL/min (>60); Est Glom Filt Rate - Afr Amer 31 mL/min (>60); Estimated Creatinine Clearance 28.91 ml/min; Glucose 196 mg/dL (74-106); Potassium 4.1 mmol/L (3.5-5.1); Sodium Level 138 mmol/L (136-145)
[2024-08-22 07:36] LABS: Bedside Glucose 187 mg/dL (74-106)
[2024-08-22] MEDS: Empagliflozin 10 MG Tablet PO (09:25)
[2024-08-22] MEDS: Aspirin E.C. 81 MG Tablet PO (09:25)
[2024-08-22] MEDS: Pantoprazole Sodium 40 MG Tablet PO (09:25)
[2024-08-22] MEDS: Furosemide 40 MG Tablet PO (09:25)
[2024-08-22] MEDS: FLUoxetine 10 MG Capsule PO (09:25)
[2024-08-22] MEDS: Carvedilol 12.5 MG Tablet PO (09:25)
[2024-08-22] MEDS: Vitamin B Comp W-C Capsule 1 CAP PO (09:26)
[2024-08-22] MEDS: metOLazone 5 MG Tablet PO (09:26)
[2024-08-22 12:18] LABS: Bedside Glucose 267 mg/dL (74-106)
== END 2024-08-22 14:28 | disposition home health service (06) | DRG 637 ==
LOC: ED 22:52 → PCU 23:11
PROVIDERS: Internal Medicine; Admitting Provider Internal Medicine; Emergency Provider Emergency Medicine; PCP Family Medicine; Visit Provider Student in an Organized Health Care Education/Training Program
DX: E11.649 Type 2 diabetes mellitus with hypoglycemia without coma (principal); G93.41 Metabolic encephalopathy; I50.42 Chronic combined systolic (congestive) and diastolic (congestive) heart failure; I13.0 Hypertensive heart and chronic kidney disease with heart failure and stage 1 through stage 4 chronic kidney disease, or unspecified chronic kidney disease; Z68.41 Body mass index [BMI] 40.0-44.9, adult; E11.22 Type 2 diabetes mellitus with diabetic chronic kidney disease; D53.9 Nutritional anemia, unspecified; E11.42 Type 2 diabetes mellitus with diabetic polyneuropathy; E11.51 Type 2 diabetes mellitus with diabetic peripheral angiopathy without gangrene; N18.4 Chronic kidney disease, stage 4 (severe); F32.A Depression, unspecified; L97.523 Non-pressure chronic ulcer of other 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; E11.621 Type 2 diabetes mellitus with foot ulcer; E78.5 Hyperlipidemia, unspecified; I25.5 Ischemic cardiomyopathy; Z79.4 Long term (current) use of insulin; I25.10 Atherosclerotic heart disease of native coronary artery without angina pectoris; E66.01 Morbid (severe) obesity due to excess calories; Z95.5 Presence of coronary angioplasty implant and graft; Z86.73 Personal history of transient ischemic attack (TIA), and cerebral infarction without residual deficits; Z87.891 Personal history of nicotine dependence; Z79.899 Other long term (current) drug therapy; Z79.82 Long term (current) use of aspirin
CPT/HCPCS: 36415; 70450; 71045; 80048; 80053; 81001; 82533; 82607; 82746; 82962; 83036; 83605; 83735; 84100; 84439; 84443; 85025; 87040; 93005; 93880; 94668; 97162; 97166; 97530; 97535; 97802; 99285; P9612; A4216

== ENCOUNTER 2024-09-14 08:45 | Outpatient (RCR) | payer MEDICARE, SELFPAY ==
[2024-08-27 00:11] VITALS: BP 147/69; PULSE 76; RESP 18; TEMP 35.5; BMI 42.7
[2024-08-31 08:28] VITALS: BP 133/40; PULSE 71; RESP 18; TEMP 35.7; BMI 42.7
--- NOTE | 2024-08-31 08:32 | PCM.WC.PN ---
History of Present Illness Date of Service: 08/31/24 Chief Complaint: Plantar lateral fifth metatarsal head ulceration right foot History of Wound: Ms. Myers is a 74-year-old currently being seen at the wound center and managed for diabetic foot ulcer. Due to stage of diabetic foot ulcer, consideration is for hyperbaric oxygen therapy to aid in healing. No prior history of hyperbaric oxygen therapy. No current tobacco use, quit in 1989. History of diabetes mellitus type 2 and most recent A1c said to be about 6.5. Also history of congestive heart failure, last ejection fraction at 35%. Follows up routinely with cardiology. She reports shortness of breath even at rest. No significant history of seizures or claustrophobia. Also denies any significant visual or auditory concerns. History of recurrent ear infections as a child. She feels well otherwise. Subjective Subjective This is a 74-year-old female who follows up today for continued care of a subfifth metatarsal head ulceration of the right and left foot. She has remained nonweightbearing to both lower extremities with the assistance of a wheelchair. Underwent surgical intervention on 07/14/2024 for bilateral fifth metatarsal head excisions with debridement of the ulceration sites of the right and left foot. Continues doing well since surgical intervention and has returned home from SNF. She is accompanied by her son today. Son is assisting in changing outer dressings as needed with grafting product in place. Glucose 94 mg/dL. She denies constitutional symptoms. Denies further complaints. Objective Data Objective Data Vital Signs: Vital Signs Temp Pulse Resp BP 96 F L 76 18 147/69 H 08/27/24 00:11 08/27/24 00:11 08/27/24 00:11 08/27/24 00:11 Weight: 120.202 kg Body Mass Index (BMI) 42.7 Physical Exam Const alert, oriented x3 and no apparent distress General Appearance: cooperative HEENT normocephalic Eyes General Eye: normal appearance of both eyes Neck General: normal visual inspection Lymph Lymphatic: no lymphadenopathy noted and no lymphedema noted Resp normal respiratory effort Cardio regular rate and regular rhythm Extremity Extremity Narrative: Bilateral lower extremity: Vascular: DP and PT pulses weakly palpable. CFT less than 5 seconds to the digits. Temperature gradient is normal. Hair growth is absent to digits. Neurologic: Light touch sensation diminished. Gross sensation intact. Protective sensation absent. Musculoskeletal: Muscle strength 4 of 5 due to generalized weakness as patient does not ambulate much. Decreased range of motion of the ankle joint dorsiflexion with the knee extended without pain or crepitus. Decreased range of motion of the STJ, MTJ, and first MTPJ without pain or crepitus. No pain to palpation around ulcerative site subfifth metatarsal head. Dermatologic: There is a full-thickness ulceration noted to the plantar lateral fifth metatarsal head of the right foot. She is s/p excision of fifth metatarsal head right foot. Ulceration demonstrates healthy granular layer. No malodor noted. No palpable fluctuance/bogginess noted, no soft tissue crepitus, no purulent drainage. Cicatrix dorsal 5th metatarsal. Left foot demonstrates ulceration subfifth metatarsal head with healthy granular tissue. She is s/p excision of fifth metatarsal head left foot. Cicatrix to dorsal foot. Ulceration site demonstrates no palpable fluctuance/bogginess, no purulent drainage, no malodor, no soft tissue crepitus. Bilateral lower extremities demonstrates edema with chronic venous stasis changes and dermatitis. Skin no rashes or lesions noted, skin turgor normal and no jaundice General Skin Exam: venous stasis and dermatitis Neuro moves all extremities Debridement Note Debridement Note Wound debrided: Right subfifth metatarsal head Laterality: Right Wound Grade/Stage: Wyatt stage III Type of Debridement: Excisional debridement Anesthesia Used: 5% Lidocaine Gel Depth: Down to and including healthy tissue and in the subcutaneous layer Percentage of wound debrided: 100 Instrument Used: #15 blade Tissue Removed: Fibrous, devitalized subcutaneous, biofilm, slough Severity: Fat Layer Exposed Amount of bleeding with debridement: Mild Bleeding Controlled with: Compression and gauze Patient tolerated procedure: Patient tolerated procedure well Additional Wound Wound debrided: Left subfifth metatarsal head Laterality: Left Wound Grade/Stage: Wyatt stage III Type of Debridement: Excisional debridement Anesthesia Used: 5% Lidocaine Gel Depth: Down to and including healthy tissue and in the subcutaneous layer Percentage of wound debrided: 100 Instrument Used: #15 blade Tissue Removed: Fibrous, devitalized subcutaneous, biofilm, slough Severity: Fat Layer Exposed Amount of bleeding with debridement: Mild Bleeding Controlled with: Compression and gauze Patient tolerated procedure: Patient tolerated procedure well Assessment/Plan Assessment/Plan (1) Non-pressure chronic ulcer of other part of right foot with necrosis of muscle: CODE(S): L97.513 - Non-pressure chronic ulcer of other part of right foot with necrosis of muscle (2) Non-pressure chronic ulcer of other 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: CODE(S): L97.523 - Non-pressure chronic ulcer of other 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 (3) Diabetes mellitus with diabetic polyneuropathy: CODE(S): E11.42 - Type 2 diabetes mellitus with diabetic polyneuropathy (4) Type 2 diabetes mellitus with foot ulcer: CODE(S): E11.621 - Type 2 diabetes mellitus with foot ulcer; L97.509 - Non-pressure chronic ulcer of other part of unspecified foot with unspecified severity (5) Chronic combined systolic and diastolic CHF (congestive heart failure): CODE(S): I50.42 - Chronic combined systolic (congestive) and diastolic (congestive) heart failure (6) Essential hypertension: CODE(S): I10 - Essential (primary) hypertension (7) PAD (peripheral artery disease): CODE(S): I73.9 - Peripheral vascular disease, unspecified (8) Debility: CODE(S): R53.81 - Other malaise (9) Obesity: CODE(S): E66.9 - Obesity, unspecified PLAN: Plan Patient seen and evaluated She is s/p excision of fifth metatarsal head right foot and left foot, debridement of ulceration to the level of muscle left foot and right foot. DOS 07/14/2024. POD #34 Cicatrix to dorsal aspect of Right and Left foot. No signs of infection. Sites continue to heal well. Predebridement measurement: Right foot sub 5th met head 0.5 cm x 0.6 cm x 0.1 cm; left foot sub 5th met head 0.4 cm x 0.5 cm x 0.1 cm Ulceration did undergo debridement as noted in the clinical panel above. Postdebridement measurement Right foot 0.6 cm x 0.7 cm x 0.1 cm; Left foot 0.5 cm x 0.6 cm x 0.1 cm. EpiFix graft #10 applied to ulcerative bed of Right foot today. Dressed with Adaptic touch and anchored with Steri-Strips to ulcer site, incision site dorsally painted with Betadine dry sterile dressings were applied to right foot. Left foot ulceration site had EpiFix graft #2 applied to ulcerative bed and dressed with Adaptic touch and anchored with Steri-Strips. No signs of infection at grafting sites. Her ulcerations have continued to decreased in size vs previous visit. Sites are healing well overall. At this time we will continue protective weightbearing to right and left foot with the assistance of a surgical shoe. She has returned home SNF. Her son does continue to check on them daily She has been cleared for HBO therapy. Labs were ordered consisting of CBC with differential, Chem 12, CXR, EKG, prealbumin, awaiting results. Patient will also see Dr. Aj for physical and clearance prior to HBO therapy. LEAS was ordered, awaiting results. Currently on Oral antibiotics and has completed 6 weeks. Laboratory results performed 06/22/2024 demonstrate: WBC 7.4, Hgb 9.7, Hct 32.8, platelet 247, ESR 38, sodium 140, potassium 4.2, chloride 111, Carbon dioxide 26.0, BUN 42, Cr 1.67, HgbA1c 6.5%, AST 20, ALT 24, alkaline phosphatase 111, CRP 18.6, prealbumin 10. CRX was also completed 06/22/2024. Discussed continued elevation of lower extremities at times of rest to aid in edema control. Discussed rewrapping of Addy wrap's or utilize Tubigrip compression for continued edema control. Discussed continued adequate protein intake to aid in wound healing. Champ supplementation was also recommended. Discussed continued reduction of A1c to aid in wound healing. Recent A1c was 6% on 07/14/2024. Discussed daily foot checks as patient is diabetic and insensate to the foot. Discussed not ambulating barefoot and encouraged shoes to be worn once healed. Discussed overall she needs to reduce ambulation and rest with feet elevated to allow healing. I do feel she ambulates on the lateral aspect of foot due to unsteady gait and obesity which lead to her bilateral ulcerations. Discussed signs and symptoms of infection. Patient and her son were instructed if there is progressive redness about the wound or top of the foot that moves up the leg, red streaking up the leg, purulent drainage from the wound site, increasing foul odor from the wound, or if she experiences fever greater than 101 degree accompanied by nausea, vomiting, chills that these are signs of a progressing infection and she should report to the ED for further evaluation and IV antibiotics. She is understanding of this. The following work up and care recommendations were made: Dressing: EpiFix, Adaptic touch, Steri-Strips to ulcerative site Right and Left foot and dressed with Adaptic touch anchored with Steri-Strips and DSD. Wash: Do not get wet bilateral foot Tissue growth optimization: EpiFix right foot, EpiFix Left foot Offload: Surgical shoe to right and left foot with fifth metatarsal head cut out. Vascular: DP and PT pulses weakly palpable. LEAS demonstrates mild arterial disease bilateral. Edema: Bilateral lower extremity edema secondary to CHF. Continued elevation of lower extremities. Will aid in edema control via Addy wrap. Recommend continued Lasix. Infection: Underwent bilateral fifth metatarsal head excision on 07/14/2024. Right fifth metatarsal head pathology demonstrates acute osteomyelitis, left fifth metatarsal head pathology demonstrates acute inflammatory reactive changes but negative for osteomyelitis. Pain: May take [id number] Tylenol for any discomfort however patient does have a insensate foot secondary to diabetic peripheral polyneuropathy. Host factors: DM type II with peripheral polyneuropathy, CHF, lower extremity edema, CKD, HTN, advanced age, obesity, PVD. She did see Dr. Aj for HBO clearance and had been cleared, but with ulcerations healing post-surgical intervention we will refrain from performing HBO dives. I answered all the patient's questions. Will return to the wound care center in 1 week for continued postoperative care and continued debridement of ulceration sites. She is to call sooner for any questions or concerns.
--- NOTE | 2024-09-01 10:48 | WC ---
PHOTO 08/31/24 RIGHT LATERAL
--- NOTE | 2024-09-01 10:52 | WC ---
PHOTO 08/31/24 LEFT LATERAL
[2024-09-07 08:31] VITALS: BP 153/50; PULSE 69; RESP 18; TEMP 35.4; BMI 42.7
--- NOTE | 2024-09-07 09:30 | PCM.WC.PN ---
History of Present Illness Date of Service: 09/07/24 Chief Complaint: Plantar lateral fifth metatarsal head ulceration right foot History of Wound: Ms. Myers is a 74-year-old currently being seen at the wound center and managed for diabetic foot ulcer. Due to stage of diabetic foot ulcer, consideration is for hyperbaric oxygen therapy to aid in healing. No prior history of hyperbaric oxygen therapy. No current tobacco use, quit in 1989. History of diabetes mellitus type 2 and most recent A1c said to be about 6.5. Also history of congestive heart failure, last ejection fraction at 35%. Follows up routinely with cardiology. She reports shortness of breath even at rest. No significant history of seizures or claustrophobia. Also denies any significant visual or auditory concerns. History of recurrent ear infections as a child. She feels well otherwise. Subjective Subjective This is a 74-year-old female who follows up today for continued care of a subfifth metatarsal head ulceration of the right and left foot. She has remained nonweightbearing to both lower extremities with the assistance of a wheelchair. Underwent surgical intervention on 07/14/2024 for bilateral fifth metatarsal head excisions with debridement of the ulceration sites of the right and left foot. Continues doing well since surgical intervention. She is accompanied by her son today. Son is assisting in changing outer dressings as needed with grafting product in place. Glucose 85 mg/dL. She denies constitutional symptoms. Denies further complaints. Objective Data Objective Data Vital Signs: Vital Signs Temp Pulse Resp BP O2 Del Method 95.7 F L 69 18 153/50 H Room Air 09/07/24 08:31 09/07/24 08:31 09/07/24 08:31 09/07/24 08:31 09/07/24 08:31 Oxygen Delivery Method Room Air Weight: 120.202 kg Body Mass Index (BMI) 42.7 Physical Exam Const alert, oriented x3 and no apparent distress General Appearance: cooperative HEENT normocephalic Eyes General Eye: normal appearance of both eyes Neck General: normal visual inspection Lymph Lymphatic: no lymphadenopathy noted and no lymphedema noted Resp normal respiratory effort Cardio regular rate and regular rhythm Extremity Extremity Narrative: Bilateral lower extremity: Vascular: DP and PT pulses weakly palpable. CFT less than 5 seconds to the digits. Temperature gradient is normal. Hair growth is absent to digits. Neurologic: Light touch sensation diminished. Gross sensation intact. Protective sensation absent. Musculoskeletal: Muscle strength 4 of 5 due to generalized weakness as patient does not ambulate much. Decreased range of motion of the ankle joint dorsiflexion with the knee extended without pain or crepitus. Decreased range of motion of the STJ, MTJ, and first MTPJ without pain or crepitus. No pain to palpation around ulcerative site subfifth metatarsal head. Dermatologic: Full-thickness ulceration to the plantar lateral fifth metatarsal head of the right foot has healed. She is s/p excision of fifth metatarsal head right foot with healed ulceration. Cicatrix dorsal 5th metatarsal. No signs of infection Left foot demonstrates ulceration subfifth metatarsal head with healthy granular tissue. She is s/p excision of fifth metatarsal head left foot. Cicatrix to dorsal foot. Ulceration site demonstrates no palpable fluctuance/bogginess, no purulent drainage, no malodor, no soft tissue crepitus. Bilateral lower extremities demonstrates edema with chronic venous stasis changes and dermatitis. Skin no rashes or lesions noted, skin turgor normal and no jaundice General Skin Exam: venous stasis and dermatitis Neuro moves all extremities Debridement Note Debridement Note Wound debrided: Subfifth metatarsal head left foot Laterality: Left Wound Grade/Stage: Wyatt stage III Type of Debridement: Excisional debridement Anesthesia Used: 5% Lidocaine Gel Depth: Down to and including healthy tissue and in the subcutaneous layer Percentage of wound debrided: 100 Instrument Used: #15 blade Tissue Removed: Fibrous, devitalized subcutaneous, biofilm, slough Severity: Fat Layer Exposed Amount of bleeding with debridement: Mild Bleeding Controlled with: Compression and gauze Patient tolerated procedure: Patient tolerated procedure well Post-Debridement Measurements and Additional Note: Post-Debridement Measurements/Treatment - Nurse 1 - General Ulcer Assessment Start: 08/31/24 08:28 Freq: Status: Active Protocol: KAY Activity Type Activity Date Activity User E-sign Co-sign Detail Recorded Client Recorded Date Recorded By Document 08/31/24 08:28 [facility] [id number] 08/31/24 08:35 BMF Document 09/07/24 08:31 KW [id number] 09/07/24 08:47 KW 08/31/24 09/07/24 08:28 08:31 - Today's Visit Information Type of service Follow-up Visit Follow-up Visit (Physician/SCREENPLAY WRITER (Physician/SCREENPLAY WRITER ) ) Arrival Mode Wheelchair Ambulatory Transfer Assistance Other Transfer Assist (Other) 2 Accompanied by son Patient Identification Verified (Name & Yes Yes ) Patient Requires Transmission-Based No Precautions Height and Weight Body Mass Index (BMI) 42.7 42.7 BMI Classification Obese Obese Vital Signs Temperature (97.8 F-99.1 F) 96.3 F L 95.7 F L Temperature Source Temporal Temporal Pulse Rate (60-100) 71 69 Pulse Location Monitor Monitor Respiratory Rate (12-18) 18 18 Respiratory rate source Observation Observation Oxygen Delivery Method Room Air Room Air Blood Pressure (90/60-120/80) 133/40 H 153/50 H Blood Pressure Mean (mm Hg) 71 84 Source Monitor Monitor Position Sitting Sitting Blood Pressure Location Right Arm Left Arm History Since Last Visit- (Skip if this is Patient's initial visit) Have you changed medications since your No No last visit? Any new allergies or adverse reactions No No Had a fall/change in ADL's that may No No increase risk of falls Signs or symptoms of abuse and/or No No neglect since last visit Have you been in the hospital since your Yes No last visit? Has dressing in place as prescribed Yes Yes Has compression in place as prescribed Yes Yes Has offloadiing in place as prescribed N/A Yes Experienced any changes in pain level or No No management Left Footwear Surgical Shoe Surgical Shoe with pressure with pressure relief insole relief insole Right Footwear Surgical Shoe Surgical Shoe with pressure with pressure relief insole relief insole Pain Scale: 0-10 Numeric Is Patient Pain Free? Yes Yes WC - Nurse 1 - General Ulcer Measurement Start: 08/31/24 08:28 Freq: Status: Active Protocol: Activity Type Activity Date Activity User E-sign Co-sign Detail Recorded Client Recorded Date Recorded By Document 08/31/24 08:28 [facility] [id number] 08/31/24 08:35 BMF Document 09/07/24 08:31 KW [id number] 09/07/24 08:47 KW 08/31/24 09/07/24 08:28 08:31 Wound Center Nurse 1 2. L plantar foot -Combined with other wound No -Current Size (cm) - Length 1 1 -Current Size (cm) - Width 0.9 0.5 -Current Size (cm) - Depth 0.1 0.1 -Total Square Cm 0.9 0.5 -Date of Last Picture (Recall this 08/31/24 field) -Photo Taken Yes -Epithelialization Small 1-33% -Tunneling No -Undermining/Tunneling No -Circular Undermining No -Exudate Amt Medium Small -Exudate Type Serosanguineous Serosanguineous -Wound Margin Distinct, Distinct, Outline Outline Attached Attached -Granulation Amt Small (1-33%) Large (67-100%) -Granulation Quality Red Red -Slough/Fibrin Yes -Necrosis Amt Large (67-100%) Small (1-33%) -Necrotic Tissue Type Eschar Adherent Slough -Texture (Jaleesa-wound Skin Appearance) Assessed Assessed,Callus -Moisture (Jaleesa-wound Skin Appearance) Assessed Assessed,Dry/ Scaly -Color (Jaleesa-wound Skin Appearance) Assessed Assessed -Temperature (Jaleesa-wound Skin No Abnormality No Abnormality Appearance) (Pt Warm) (Pt Warm) -Tenderness on Palpation (Jaleesa-wound No No Skin Appearance) -Ulcer Cleansing Soap and Water Soap and Water -Foul Odor after Cleansing No No -Anesthetic Used 5% Lidocaine 5% Lidocaine Gel Gel 1-right plantar foot -Combined with other wound No -Current Size (cm) - Length 1.5 0.5 -Current Size (cm) - Width 1.3 0.5 -Current Size (cm) - Depth 0.1 0.2 -Total Square Cm 1.95 0.25 -Date of Last Picture (Recall this 08/31/24 field) -Photo Taken Yes -Tunneling No -Undermining/Tunneling No -Circular Undermining No -Exudate Amt Medium Small -Exudate Type Serosanguineous Serosanguineous -Wound Margin Distinct, Distinct, Outline Outline Attached Attached -Granulation Amt None Present (0 Large (67-100%) %) -Granulation Quality Red -Slough/Fibrin Yes -Necrosis Amt Large (67-100%) Small (1-33%) -Necrotic Tissue Type Eschar Adherent Slough -Texture (Jaleesa-wound Skin Appearance) Assessed Assessed,Callus -Moisture (Jaleesa-wound Skin Appearance) Assessed Assessed,Dry/ Scaly -Color (Jaleesa-wound Skin Appearance) Assessed Assessed -Temperature (Jaleesa-wound Skin No Abnormality No Abnormality Appearance) (Pt Warm) (Pt Warm) -Tenderness on Palpation (Jaleesa-wound No No Skin Appearance) -Ulcer Cleansing Soap and Water Soap and Water -Foul Odor after Cleansing No No -Anesthetic Used 5% Lidocaine 5% Lidocaine Gel Gel Right Calf (cm) 43 Right Ankle (cm) 24.5 Left Calf (cm) 43 Left Ankle (cm) 26.5 WC - Nurse 2 - General Ulcer CM Notes Start: 08/31/24 08:28 Freq: Status: Active Protocol: Activity Type Activity Date Activity User E-sign Co-sign Detail Recorded Client Recorded Date Recorded By Document 08/31/24 08:52 BMF [id number] 08/31/24 09:01 BMF Edit Result 08/31/24 08:52 BMF (1) [id number] 08/31/24 12:15 BMF Document 09/07/24 09:05 BMF [id number] 09/07/24 09:14 BMF (1) 2. L plantar foot - Wound Comment(s) => split a 2x2 between both wounds. 18 not available 1-right plantar foot - Bioengineered Tissue No => Yes - Type of Bioengineered Tissue => Epifix - Expiration Date => 02/25/29 - Product Lot Number => [id number] - Percent Used => 100 - Lot number of Saline Used => 06/26/2027 - Debridement - Subq, 1st 20sq cm Yes => No - Apply Skin Sub - 1st 25 sq cm - Feet => 1 - Epifix (per sq cm) => 0 - Wound Comment(s) => split a 2x2 between both wounds => 18 not available. 08/31/24 09/07/24 08:52 09:05 Wound Center Nurse 2 2. L plantar foot -Time 08:52 09:06 -Correct Patient Yes Yes -Correct Side, Site, Position Yes Yes -Correct Procedure Yes Yes -Procedure Performed Yes Yes -Type of Procedure Debridement Debridement -Clinical Debridement Subcutaneous Subcutaneous -Tissue Removed Subcutaneous Subcutaneous -Post Debridement (cm) - Length 0.5 0.4 -Post Debridement (cm) - Width 0.6 0.4 -Post Debridement (cm) - Depth 0.1 0.1 -Total Square (Post) (cm) 0.30 0.16 -Area of Debridement (cm) - Length 0.5 0.4 -Area of Debridement (cm) - Width 0.6 0.4 -Total Square (Area) (cm) 0.30 0.16 -Tunneling No No -Undermining/Tunneling No No -Circular Undermining No No -Wound/Ulcer Outcome Not Healed Not Healed -Ulcer Cleansing Rinsed/ Rinsed/ Irrigated with Irrigated with Saline Saline -Foul Odor after Cleansing No No -Bioengineered Tissue Yes -Type of Bioengineered Tissue Epifix Epifix 18mm Disc -Expiration Date 02/25/29 03/27/29 -Product Lot Number [id number] -Percent Used 100 100 -Lot number of Saline Used 06/26/2027 [id number] -Bleeding Controlled with Pressure Pressure -Treatment Response Procedure Procedure Tolerated Well Tolerated Well -Debridement - Subq, 1st 20sq cm No No -Apply Skin Sub - 1st 25 sq cm - Feet 1 1 -Epifix (per sq cm) 4 -Epifix 18mm Disc 3 -Wound Comment(s) split a 2x2 between both wounds. 18 not available 1-right plantar foot -Time 08:52 09:06 -Correct Patient Yes Yes -Correct Side, Site, Position Yes Yes -Correct Procedure Yes Yes -Procedure Performed Yes Yes -Type of Procedure Debridement Debridement -Clinical Debridement Subcutaneous Subcutaneous -Tissue Removed Subcutaneous Subcutaneous -Post Debridement (cm) - Length 0.6 0 -Post Debridement (cm) - Width 0.7 0 -Post Debridement (cm) - Depth 0.1 0 -Total Square (Post) (cm) 0.42 0 -Area of Debridement (cm) - Length 0.6 0 -Area of Debridement (cm) - Width 0.7 0 -Total Square (Area) (cm) 0.42 0 -Tunneling No No -Undermining/Tunneling No No -Circular Undermining No No -Wound/Ulcer Outcome Not Healed Healed- Epithelialized -Ulcer Cleansing Rinsed/ Irrigated with Saline -Foul Odor after Cleansing No -Bioengineered Tissue Yes -Type of Bioengineered Tissue Epifix -Expiration Date 02/25/29 -Product Lot Number [id number] -Percent Used 100 -Lot number of Saline Used 06/26/2027 -Bleeding Controlled with Pressure NA -Treatment Response Procedure Tolerated Well -Debridement - Subq, 1st 20sq cm No Yes -Apply Skin Sub - 1st 25 sq cm - Feet 1 -Epifix (per sq cm) 0 -Wound Comment(s) split a 2x2 between both wounds 18 not available. Pain Scale: 0-10 Numeric Is Patient Pain Free? Yes Yes - Nurse 3 - General Ulcer D/C NN Start: 08/31/24 08:28 Freq: Status: Active Protocol: Activity Type Activity Date Activity User E-sign Co-sign Detail Recorded Client Recorded Date Recorded By Document 08/31/24 09:27 RB [id number] 08/31/24 09:29 RB 08/31/24 09:27 Wound Care Center Nurse 3 2. L plantar foot -Ulcer Cleansing Rinsed/ Irrigated with Saline -Primary Dressing Applied Aquacel Extra -Primary Dressing Covered/Secured with Dry Gauze,Dry Gauze & Roll Gauze,Secured with Tape -Aquacel Extra 1 1-right plantar foot -Ulcer Cleansing Rinsed/ Irrigated with Saline -Other Dressing aquacel extra -Primary Dressing Covered/Secured with Dry Gauze & Roll Gauze, Secured with Tape taurus -Tubular Bandage Single Layer -Size of Tubigrip Used Size E -Size E ($) 2 Treatment Response Procedure Tolerated Well Pain Scale: 0-10 Numeric Is Patient Pain Free? Yes WC - Visit Discharge Discharge Condition Stable Ambulatory Status Wheelchair Transportation Private Auto Accompanied by son Medication Reconcilliation completed & No provided to patient/care provider Clinical Summary of Care Provided Yes Additional Wound Wound debrided: Subfifth metatarsal head right foot Laterality: Right Wound Grade/Stage: Wyatt stage III Type of Debridement: Excisional debridement Anesthesia Used: 5% Lidocaine Gel Depth: Down to and including healthy tissue Percentage of wound debrided: 100 Instrument Used: #15 blade Tissue Removed: Nonviable tissue and hyperkeratotic tissue Severity: Limited To Skin Breakdown Amount of bleeding with debridement: None Patient tolerated procedure: Patient tolerated procedure well Assessment/Plan Assessment/Plan (1) Non-pressure chronic ulcer of other part of right foot with necrosis of muscle: CODE(S): L97.513 - Non-pressure chronic ulcer of other part of right foot with necrosis of muscle (2) Non-pressure chronic ulcer of other 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: CODE(S): L97.523 - Non-pressure chronic ulcer of other 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 (3) Diabetes mellitus with diabetic polyneuropathy: CODE(S): E11.42 - Type 2 diabetes mellitus with diabetic polyneuropathy (4) Type 2 diabetes mellitus with foot ulcer: CODE(S): E11.621 - Type 2 diabetes mellitus with foot ulcer; L97.509 - Non-pressure chronic ulcer of other part of unspecified foot with unspecified severity (5) Chronic combined systolic and diastolic CHF (congestive heart failure): CODE(S): I50.42 - Chronic combined systolic (congestive) and diastolic (congestive) heart failure (6) Essential hypertension: CODE(S): I10 - Essential (primary) hypertension (7) PAD (peripheral artery disease): CODE(S): I73.9 - Peripheral vascular disease, unspecified (8) Debility: CODE(S): R53.81 - Other malaise (9) Obesity: CODE(S): E66.9 - Obesity, unspecified PLAN: Plan Patient seen and evaluated She is s/p excision of fifth metatarsal head right foot and left foot, debridement of ulceration to the level of muscle left foot and right foot. DOS 07/14/2024. POD #55 Cicatrix to dorsal aspect of Right and Left foot. No signs of infection. Sites continue to heal well. Predebridement measurement: Right foot sub 5th met head 0.1 cm x 0.1 cm x 0.1 cm; left foot sub 5th met head 0.3 cm x 0.3 cm x 0.1 cm Ulceration did undergo debridement as noted in the clinical panel above. Postdebridement measurement Right foot healed status; Left foot 0.3 cm x 0.3 cm x 0.1 cm. DSD to applied to pad and protect right foot today. Left foot ulceration site had EpiFix graft #3 applied to ulcerative bed and dressed with Adaptic touch and anchored with Steri-Strips. No signs of infection at grafting sites. Her ulcerations have continued to decreased in size vs previous visit with right foot healed. Sites are healing well overall. At this time we will continue protective weightbearing to right and left foot with the assistance of a surgical shoe. Currently residing at home and her son does continue to check on them daily She has been cleared for HBO therapy. Labs were ordered consisting of CBC with differential, Chem 12, CXR, EKG, prealbumin, awaiting results. Patient will also see Dr. Aj for physical and clearance prior to HBO therapy. LEAS demonstrates mild arterial disease. Oral antibiotics completed 6 weeks total prior to surgery. Laboratory results performed 06/22/2024 demonstrate: WBC 7.4, Hgb 9.7, Hct 32.8, platelet 247, ESR 38, sodium 140, potassium 4.2, chloride 111, Carbon dioxide 26.0, BUN 42, Cr 1.67, HgbA1c 6.5%, AST 20, ALT 24, alkaline phosphatase 111, CRP 18.6, prealbumin 10. CRX was also completed 06/22/2024. Discussed continued elevation of lower extremities at times of rest to aid in edema control. Discussed rewrapping of Addy wrap's or utilize Tubigrip compression for continued edema control. Discussed continued adequate protein intake to aid in wound healing. Champ supplementation was also recommended. Discussed continued reduction of A1c to aid in wound healing. Recent A1c was 6% on 07/14/2024. Discussed daily foot checks as patient is diabetic and insensate to the foot. Discussed not ambulating barefoot and encouraged shoes to be worn once healed. Discussed overall she needs to reduce ambulation and rest with feet elevated to allow healing. I do feel she ambulates on the lateral aspect of foot due to unsteady gait and obesity which lead to her bilateral ulcerations. Discussed signs and symptoms of infection. Patient and her son were instructed if there is progressive redness about the wound or top of the foot that moves up the leg, red streaking up the leg, purulent drainage from the wound site, increasing foul odor from the wound, or if she experiences fever greater than 101 degree accompanied by nausea, vomiting, chills that these are signs of a progressing infection and she should report to the ED for further evaluation and IV antibiotics. She is understanding of this. The following work up and care recommendations were made: Dressing: EpiFix, Adaptic touch, Steri-Strips to ulcerative site Left foot and dressed with Adaptic touch anchored with Steri-Strips and DSD. Pad and protect right foot with dry sterile dressing. Wash: Do not get left foot wet. May wash right foot with soap and water Tissue growth optimization: EpiFix Left foot Offload: Surgical shoe to right and left foot with fifth metatarsal head cut out. Vascular: DP and PT pulses weakly palpable. LEAS demonstrates mild arterial disease bilateral. Edema: Bilateral lower extremity edema secondary to CHF. Continued elevation of lower extremities. Will aid in edema control via Addy wrap. Recommend continued Lasix. Infection: Underwent bilateral fifth metatarsal head excision on 07/14/2024. Right fifth metatarsal head pathology demonstrates acute osteomyelitis, left fifth metatarsal head pathology demonstrates acute inflammatory reactive changes but negative for osteomyelitis. Pain: May take [id number] Tylenol for any discomfort however patient does have a insensate foot secondary to diabetic peripheral polyneuropathy. Host factors: DM type II with peripheral polyneuropathy, CHF, lower extremity edema, CKD, HTN, advanced age, obesity, PVD. She did see Dr. Aj for HBO clearance and had been cleared, but with ulcerations healing post-surgical intervention we will refrain from performing HBO dives. I answered all the patient's questions. Will return to the wound care center in 1 week for continued postoperative care and continued debridement of ulceration sites. She is to call sooner for any questions or concerns.
[2024-09-14 08:27] VITALS: BP 116/41; PULSE 73; RESP 18; TEMP 36; BMI 42.7
--- NOTE | 2024-09-14 09:01 | PN.PCM_ITS ---
History of Present Illness Date of Service: 09/14/24 Chief Complaint: Plantar lateral fifth metatarsal head ulceration right foot History of Wound: Ms. Myers is a 74-year-old currently being seen at the wound center and managed for diabetic foot ulcer. Due to stage of diabetic foot ulcer, consideration is for hyperbaric oxygen therapy to aid in healing. No prior history of hyperbaric oxygen therapy. No current tobacco use, quit in 1989. History of diabetes mellitus type 2 and most recent A1c said to be about 6.5. Also history of congestive heart failure, last ejection fraction at 35%. Follows up routinely with cardiology. She reports shortness of breath even at rest. No significant history of seizures or claustrophobia. Also denies any significant visual or auditory concerns. History of recurrent ear infections as a child. She feels well otherwise. Subjective Subjective This is a 74-year-old female who follows up today for continued care of a subfifth metatarsal head ulceration of the right and left foot. She has remained nonweightbearing to both lower extremities with the assistance of a wheelchair. Underwent surgical intervention on 07/14/2024 for bilateral fifth metatarsal head excisions with debridement of the ulceration sites of the right and left foot. Continues doing well since surgical intervention. She is accompanied by her son today. Son is assisting in changing outer dressings as needed with g rafting product in place to Left foot. Glucose 88 mg/dL. She denies constitutional symptoms. Denies further complaints. Objective Data Objective Data Vital Signs: Vital Signs Temp Pulse Resp BP O2 Del Method 96.8 F L 73 18 116/41 L Room Air 09/14/24 08:27 09/14/24 08:27 09/14/24 08:27 09/14/24 08:27 09/14/24 08:27 Oxygen Delivery Method Room Air Weight: 120.202 kg Body Mass Index (BMI) 42.7 Physical Exam Const alert, oriented x3 and no apparent distress General Appearance: cooperative HEENT normocephalic Eyes General Eye: normal appearance of both eyes Neck General: normal visual inspection Lymph Lymphatic: no lymphadenopathy noted and no lymphedema noted Resp normal respiratory effort Cardio regular rate and regular rhythm Extremity Extremity Narrative: Bilateral lower extremity: Vascular: DP and PT pulses weakly palpable. CFT less than 5 seconds to the digits. Temperature gradient is normal. Hair growth is absent to digits. Neurologic: Light touch sensation diminished. Gross sensation intact. Protective sensation absent. Musculoskeletal: Muscle strength 4 of 5 due to generalized weakness as patient does not ambulate much. Decreased range of motion of the ankle joint dorsiflexion with the knee extended without pain or crepitus. Decreased range of motion of the STJ, MTJ, and first MTPJ without pain or crepitus. No pain to palpation around ulcerative site subfifth metatarsal head. Dermatologic: Full-thickness ulceration to the plantar lateral fifth metatarsal head of the right foot remains healed. She is s/p excision of fifth metatarsal head right foot with healed ulceration. Cicatrix dorsal 5th metatarsal. No signs of infection Left foot demonstrates ulceration subfifth metatarsal head with newly epithelialized tissue. She is s/p excision of fifth metatarsal head left foot. Cicatrix to dorsal foot. Ulceration site demonstrates no palpable fluctuance/bogginess, no purulent drainage, no malodor, no soft tissue crepitus. Bilateral lower extremities demonstrates edema with chronic venous stasis changes and dermatitis. Skin no rashes or lesions noted, skin turgor normal and no jaundice General Skin Exam: venous stasis and dermatitis Neuro moves all extremities Debridement Note Debridement Note Wound debrided: Subfifth metatarsal head left foot Laterality: Left Wound Grade/Stage: Wyatt stage III Type of Debridement: Excisional debridement Anesthesia Used: 5% Lidocaine Gel Depth: Down to and including healthy tissue and in the subcutaneous layer Percentage of wound debrided: 100 Instrument Used: #15 blade Tissue Removed: Fibrous, devitalized subcutaneous, biofilm, slough Severity: Fat Layer Exposed Amount of bleeding with debridement: Mild Bleeding Controlled with: Compression and gauze Patient tolerated procedure: Patient tolerated procedure well Post-Debridement Measurements and Additional Note: Post-Debridement Measurements/Treatment DREW - Nurse 1 - General Ulcer Assessment Start: 08/31/24 08:28 Freq: Status: Active Protocol: KAY Activity Type Activity Date Activity User E-sign Co-sign Detail Recorded Client Recorded Date Recorded By Document 08/31/24 08:28 BMF [id number] 08/31/24 08:35 BMF Document 09/07/24 08:31 KW [id number] 09/07/24 08:47 KW Document 09/14/24 08:27 KW [id number] 09/14/24 08:32 KW 08/31/24 09/07/24 09/14/24 08:28 08:31 08:27 WC - Today's Visit Information Type of service Follow-up Visit Follow-up Visit Follow-up Visit (Physician/ADVERTISING CLERK (Physician/ADVERTISING CLERK (Physician/ADVERTISING CLERK ) ) ) Arrival Mode Wheelchair Ambulatory Wheelchair Transfer Assistance Other Transfer Assist (Other) 2 Accompanied by son SON Patient Identification Verified (Name & Yes Yes Yes ) Patient Requires Transmission-Based No Precautions Height and Weight Body Mass Index (BMI) 42.7 42.7 42.7 BMI Classification Obese Obese Obese Vital Signs Temperature (97.8 F-99.1 F) 96.3 F L 95.7 F L 96.8 F L Temperature Source Temporal Temporal Temporal Pulse Rate (60-100) 71 69 73 Pulse Location Monitor Monitor Monitor Respiratory Rate (12-18) 18 18 18 Respiratory rate source Observation Observation Observation Oxygen Delivery Method Room Air Room Air Room Air Blood Pressure (90/60-120/80) 133/40 H 153/50 H 116/41 L Blood Pressure Mean (mm Hg) 71 84 66 Source Monitor Monitor Monitor Position Sitting Sitting Semi-Fowlers Blood Pressure Location Right Arm Left Arm Left Arm History Since Last Visit- (Skip if this is Patient's initial visit) Have you changed medications since your No No No last visit? Any new allergies or adverse reactions No No No Had a fall/change in ADL's that may No No No increase risk of falls Signs or symptoms of abuse and/or No No No neglect since last visit Have you been in the hospital since your Yes No No last visit? Has dressing in place as prescribed Yes Yes Yes Has compression in place as prescribed Yes Yes Yes Has offloadiing in place as prescribed N/A Yes Yes Experienced any changes in pain level or No No No management Left Footwear Surgical Shoe Surgical Shoe Surgical Shoe with pressure with pressure with pressure relief insole relief insole relief insole Right Footwear Surgical Shoe Surgical Shoe Surgical Shoe with pressure with pressure with pressure relief insole relief insole relief insole Pain Scale: 0-10 Numeric Is Patient Pain Free? Yes Yes Yes WC - Nurse 1 - General Ulcer Measurement Start: 08/31/24 08:28 Freq: Status: Active Protocol: Activity Type Activity Date Activity User E-sign Co-sign Detail Recorded Client Recorded Date Recorded By Document 08/31/24 08:28 BMF [id number] 08/31/24 08:35 BMF Document 09/07/24 08:31 KW [id number] 09/07/24 08:47 KW Document 09/14/24 08:27 KW [id number] 09/14/24 08:32 KW Edit Result 09/14/24 08:27 KW (1) [id number] 09/14/24 08:34 KW (1) Right Calf (cm) => 42.5 Right Ankle (cm) => 24.5 Left Calf (cm) => 43.5 Left Ankle (cm) => 26.8 08/31/24 09/07/24 09/14/24 08:28 08:31 08:27 Wound Center Nurse 1 1-right plantar foot -Combined with other wound No -Current Size (cm) - Length 1.5 0.5 0.1 -Current Size (cm) - Width 1.3 0.5 0.1 -Current Size (cm) - Depth 0.1 0.2 0 -Total Square Cm 1.95 0.25 0.01 -Date of Last Picture (Recall this 08/31/24 field) -Photo Taken Yes -Tunneling No -Undermining/Tunneling No -Circular Undermining No -Exudate Amt Medium Small None Present -Exudate Type Serosanguineous Serosanguineous -Wound Margin Distinct, Distinct, Outline Outline Attached Attached -Granulation Amt None Present (0 Large (67-100%) %) -Granulation Quality Red -Slough/Fibrin Yes -Necrosis Amt Large (67-100%) Small (1-33%) -Necrotic Tissue Type Eschar Adherent Slough -Texture (Jaleesa-wound Skin Appearance) Assessed Assessed,Callus Assessed -Moisture (Jaleesa-wound Skin Appearance) Assessed Assessed,Dry/ Assessed,Dry/ Scaly Scaly -Color (Jaleesa-wound Skin Appearance) Assessed Assessed Assessed -Temperature (Jaleesa-wound Skin No Abnormality No Abnormality No Abnormality Appearance) (Pt Warm) (Pt Warm) (Pt Warm) -Tenderness on Palpation (Jaleesa-wound No No No Skin Appearance) -Ulcer Cleansing Soap and Water Soap and Water Soap and Water -Foul Odor after Cleansing No No No -Anesthetic Used 5% Lidocaine 5% Lidocaine 5% Lidocaine Gel Gel Gel 2. L plantar foot -Combined with other wound No -Current Size (cm) - Length 1 1 0.1 -Current Size (cm) - Width 0.9 0.5 0.1 -Current Size (cm) - Depth 0.1 0.1 0 -Total Square Cm 0.9 0.5 0.01 -Date of Last Picture (Recall this 08/31/24 field) -Photo Taken Yes -Epithelialization Small 1-33% Large 67-100% -Tunneling No -Undermining/Tunneling No -Circular Undermining No -Exudate Amt Medium Small None Present -Exudate Type Serosanguineous Serosanguineous -Wound Margin Distinct, Distinct, Outline Outline Attached Attached -Granulation Amt Small (1-33%) Large (67-100%) -Granulation Quality Red Red -Slough/Fibrin Yes -Necrosis Amt Large (67-100%) Small (1-33%) -Necrotic Tissue Type Eschar Adherent Slough -Texture (Jaleesa-wound Skin Appearance) Assessed Assessed,Callus Assessed -Moisture (Jaleesa-wound Skin Appearance) Assessed Assessed,Dry/ Assessed,Dry/ Scaly Scaly -Color (Jaleesa-wound Skin Appearance) Assessed Assessed Assessed -Temperature (Jaleesa-wound Skin No Abnormality No Abnormality No Abnormality Appearance) (Pt Warm) (Pt Warm) (Pt Warm) -Tenderness on Palpation (Jaleesa-wound No No No Skin Appearance) -Ulcer Cleansing Soap and Water Soap and Water Soap and Water -Foul Odor after Cleansing No No -Anesthetic Used 5% Lidocaine 5% Lidocaine 5% Lidocaine Gel Gel Gel Right Calf (cm) 43 42.5 Right Ankle (cm) 24.5 24.5 Left Calf (cm) 43 43.5 Left Ankle (cm) 26.5 26.8 WC - Nurse 2 - General Ulcer CM Notes Start: 08/31/24 08:28 Freq: Status: Active Protocol: Activity Type Activity Date Activity User E-sign Co-sign Detail Recorded Client Recorded Date Recorded By Document 08/31/24 08:52 BM [id number] 08/31/24 09:01 BM Edit Result 08/31/24 08:52 BMF (1 10.10.25.7 08/31/24 12:15 BMF Document 09/07/24 09:05 BMF [id number] 09/07/24 09:14 BMF Document 09/14/24 08:48 BMF [id number] 09/14/24 08:54 BM (1) 1-right plantar foot - Bioengineered Tissue No => Yes - Type of Bioengineered Tissue => Epifix - Expiration Date => 02/25/29 - Product Lot Number => [id number] - Percent Used => 100 - Lot number of Saline Used => 06/26/2027 - Debridement - Subq, 1st 20sq cm Yes => No - Apply Skin Sub - 1st 25 sq cm - Feet => 1 - Epifix (per sq cm) => 0 - Wound Comment(s) => split a 2x2 between both wounds => 18 not available. 2. L plantar foot - Wound Comment(s) => split a 2x2 between both wounds. 18 not available 08/31/24 09/07/24 09/14/24 08:52 09:05 08:48 Wound Center Nurse 2 1-right plantar foot -Time 08:52 09:06 -Correct Patient Yes Yes -Correct Side, Site, Position Yes Yes -Correct Procedure Yes Yes -Procedure Performed Yes Yes -Type of Procedure Debridement Debridement -Clinical Debridement Subcutaneous Subcutaneous -Tissue Removed Subcutaneous Subcutaneous -Post Debridement (cm) - Length 0.6 0 -Post Debridement (cm) - Width 0.7 0 -Post Debridement (cm) - Depth 0.1 0 -Total Square (Post) (cm) 0.42 0 -Area of Debridement (cm) - Length 0.6 0 -Area of Debridement (cm) - Width 0.7 0 -Total Square (Area) (cm) 0.42 0 -Tunneling No No -Undermining/Tunneling No No -Circular Undermining No No -Wound/Ulcer Outcome Not Healed Healed- Epithelialized -Ulcer Cleansing Rinsed/ Irrigated with Saline -Foul Odor after Cleansing No -Bioengineered Tissue Yes -Type of Bioengineered Tissue Epifix -Expiration Date 02/25/29 -Product Lot Number [id number] -Percent Used 100 -Lot number of Saline Used 06/26/2027 -Bleeding Controlled with Pressure NA -Treatment Response Procedure Tolerated Well -Debridement - Subq, 1st 20sq cm No Yes -Apply Skin Sub - 1st 25 sq cm - Feet 1 -Epifix (per sq cm) 0 -Wound Comment(s) split a 2x2 between both wounds 18 not available. 2. L plantar foot -Time 08:52 09:06 08:49 -Correct Patient Yes Yes Yes -Correct Side, Site, Position Yes Yes Yes -Correct Procedure Yes Yes Yes -Procedure Performed Yes Yes Yes -Type of Procedure Debridement Debridement Debridement -Clinical Debridement Subcutaneous Subcutaneous Subcutaneous -Tissue Removed Subcutaneous Subcutaneous Subcutaneous -Post Debridement (cm) - Length 0.5 0.4 0.1 -Post Debridement (cm) - Width 0.6 0.4 0.1 -Post Debridement (cm) - Depth 0.1 0.1 0.1 -Total Square (Post) (cm) 0.30 0.16 0.01 -Area of Debridement (cm) - Length 0.5 0.4 0.1 -Area of Debridement (cm) - Width 0.6 0.4 0.1 -Total Square (Area) (cm) 0.30 0.16 0.01 -Tunneling No No No -Undermining/Tunneling No No No -Circular Undermining No No No -Wound/Ulcer Outcome Not Healed Not Healed Not Healed -Ulcer Cleansing Rinsed/ Rinsed/ Rinsed/ Irrigated with Irrigated with Irrigated with Saline Saline Saline -Foul Odor after Cleansing No No No -Bioengineered Tissue Yes Yes -Type of Bioengineered Tissue Epifix Epifix 18mm Disc -Expiration Date 02/25/29 03/27/29 -Product Lot Number [id number] -Percent Used 100 100 -Lot number of Saline Used 06/26/2027 [id number] -Bleeding Controlled with Pressure Pressure Pressure,Silver Nitrate -Treatment Response Procedure Procedure Procedure Tolerated Well Tolerated Well Tolerated Well -Debridement - Subq, 1st 20sq cm No No Yes -Apply Skin Sub - 1st 25 sq cm - Feet 1 1 -Epifix (per sq cm) 4 -Epifix 18mm Disc 3 -Wound Comment(s) split a 2x2 between both wounds. 18 not available Pain Scale: 0-10 Numeric Is Patient Pain Free? Yes Yes Yes WC - Nurse 3 - General Ulcer D/C NN Start: 08/31/24 08:28 Freq: Status: Active Protocol: Activity Type Activity Date Activity User E-sign Co-sign Detail Recorded Client Recorded Date Recorded By Document 08/31/24 09:27 RB [id number] 08/31/24 09:29 RB 08/31/24 09:27 Wound Care Center Nurse 3 1-right plantar foot -Ulcer Cleansing Rinsed/ Irrigated with Saline -Other Dressing aquacel extra -Primary Dressing Covered/Secured with Dry Gauze & Roll Gauze, Secured with Tape 2. L plantar foot -Ulcer Cleansing Rinsed/ Irrigated with Saline -Primary Dressing Applied Aquacel Extra -Primary Dressing Covered/Secured with Dry Gauze,Dry Gauze & Roll Gauze,Secured with Tape -Aquacel Extra 1 taurus -Tubular Bandage Single Layer -Size of Tubigrip Used Size E -Size E ($) 2 Treatment Response Procedure Tolerated Well Pain Scale: 0-10 Numeric Is Patient Pain Free? Yes WC - Visit Discharge Discharge Condition Stable Ambulatory Status Wheelchair Transportation Private Auto Accompanied by son Medication Reconcilliation completed & No provided to patient/care provider Clinical Summary of Care Provided Yes Assessment/Plan Assessment/Plan (1) Non-pressure chronic ulcer of other part of right foot with necrosis of muscle: CODE(S): L97.513 - Non-pressure chronic ulcer of other part of right foot with necrosis of muscle (2) Non-pressure chronic ulcer of other 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: CODE(S): L97.523 - Non-pressure chronic ulcer of other 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 (3) Diabetes mellitus with diabetic polyneuropathy: CODE(S): E11.42 - Type 2 diabetes mellitus with diabetic polyneuropathy (4) Type 2 diabetes mellitus with foot ulcer: CODE(S): E11.621 - Type 2 diabetes mellitus with foot ulcer; L97.509 - Non-pressure chronic ulcer of other part of unspecified foot with unspecified severity (5) Chronic combined systolic and diastolic CHF (congestive heart failure): CODE(S): I50.42 - Chronic combined systolic (congestive) and diastolic (congestive) heart failure (6) Essential hypertension: CODE(S): I10 - Essential (primary) hypertension (7) PAD (peripheral artery disease): CODE(S): I73.9 - Peripheral vascular disease, unspecified (8) Debility: CODE(S): R53.81 - Other malaise (9) Obesity: CODE(S): E66.9 - Obesity, unspecified PLAN: Plan Patient seen and evaluated She is s/p excision of fifth metatarsal head right foot and left foot, debridement of ulceration to the level of muscle left foot and right foot. DOS 07/14/2024. POD #62 Cicatrix to dorsal aspect of Right and Left foot. No signs of infection. Sites have healed well. Predebridement measurement: Right foot sub 5th met head healed; left foot sub 5th met head 0.1 cm x 0.1 cm x 0.1 cm Ulceration did undergo debridement as noted in the clinical panel above. Right foot remains healed; postdebridement measurement left foot 0.1 cm x 0.1 cm x 0.1 cm. DSD to applied to pad and protect right and left foot today. Her ulcerations have continued to decreased in size vs previous visit with right foot remaining healed and Left foot nearing healed status. Sites are healing well overall. At this time we will continue protective weightbearing to right and left foot with the assistance of a surgical shoe. Currently residing at home and her son does continue to check on them daily She has been cleared for HBO therapy. Labs were ordered consisting of CBC with differential, Chem 12, CXR, EKG, prealbumin, awaiting results. Patient will also see Dr. Aj for physical and clearance prior to HBO therapy. LEAS demonstrates mild arterial disease. Oral antibiotics completed 6 weeks total prior to surgery. Laboratory results performed 06/22/2024 demonstrate: WBC 7.4, Hgb 9.7, Hct 32.8, platelet 247, ESR 38, sodium 140, potassium 4.2, chloride 111, Carbon dioxide 26.0, BUN 42, Cr 1.67, HgbA1c 6.5%, AST 20, ALT 24, alkaline phosphatase 111, CRP 18.6, prealbumin 10. CRX was also completed 06/22/2024. Discussed continued elevation of lower extremities at times of rest to aid in edema control. Discussed rewrapping of Addy wrap's or utilize Tubigrip compression for continued edema control. Discussed continued adequate protein intake to aid in wound healing. Champ supplementation was also recommended. Discussed continued reduction of A1c to aid in wound healing. Recent A1c was 6% on 07/14/2024. Discussed daily foot checks as patient is diabetic and insensate to the foot. Discussed not ambulating barefoot and encouraged shoes to be worn once healed. Discussed overall she needs to reduce ambulation and rest with feet elevated to allow healing. I do feel she ambulates on the lateral aspect of foot due to unsteady gait and obesity which lead to her bilateral ulcerations. Discussed signs and symptoms of infection. Patient and her son were instructed if there is progressive redness about the wound or top of the foot that moves up the leg, red streaking up the leg, purulent drainage from the wound site, increasing foul odor from the wound, or if she experiences fever greater than 101 degree accompanied by nausea, vomiting, chills that these are signs of a progressing infection and she should report to the ED for further evaluation and IV antibiotics. She is understanding of this. The following work up and care recommendations were made: Dressing: Pad and protect right and left foot with dry sterile dressing. Wash: Soap and water Tissue growth optimization: None Offload: Surgical shoe to right and left foot with fifth metatarsal head cut out. Vascular: DP and PT pulses weakly palpable. LEAS demonstrates mild arterial disease bilateral. Edema: Bilateral lower extremity edema secondary to CHF. Continued elevation of lower extremities. Will aid in edema control via Addy wrap. Recommend continued Lasix. Infection: Underwent bilateral fifth metatarsal head excision on 07/14/2024. Right fifth metatarsal head pathology demonstrates acute osteomyelitis, left fifth metatarsal head pathology demonstrates acute inflammatory reactive changes but negative for osteomyelitis. Pain: May take [id number] Tylenol for any discomfort however patient does have a insensate foot secondary to diabetic peripheral polyneuropathy. Host factors: DM type II with peripheral polyneuropathy, CHF, lower extremity edema, CKD, HTN, advanced age, obesity, PVD. She did see Dr. Aj for HBO clearance and had been cleared, but with ulcerations healing post-surgical intervention we will refrain from performing HBO dives. I answered all the patient's questions. Will return to the wound care center in 2 weeks for continued postoperative care and continued debridement of ulceration sites. She is to call sooner for any questions or concerns.
== END 2024-09-26 23:59 | disposition home or self-care (01) ==
LOC: WC 08:45
PROVIDERS: PCP Family Medicine; Referring Provider Student in an Organized Health Care Education/Training Program; Visit Provider Student in an Organized Health Care Education/Training Program
DX: E11.621 Type 2 diabetes mellitus with foot ulcer (principal); L97.522 Non-pressure chronic ulcer of other part of left foot with fat layer exposed; L97.512 Non-pressure chronic ulcer of other part of right foot with fat layer exposed; I11.0 Hypertensive heart disease with heart failure; I50.42 Chronic combined systolic (congestive) and diastolic (congestive) heart failure; Z68.41 Body mass index [BMI] 40.0-44.9, adult; E11.42 Type 2 diabetes mellitus with diabetic polyneuropathy; E11.51 Type 2 diabetes mellitus with diabetic peripheral angiopathy without gangrene; E66.9 Obesity, unspecified; Z87.891 Personal history of nicotine dependence
CPT/HCPCS: 11042; 15275; Q4186

== ENCOUNTER 2024-10-26 08:45 | Outpatient (RCR) | payer MEDICARE, SELFPAY ==
[2024-09-27 00:36] VITALS: BP 147/69; PULSE 76; RESP 18; TEMP 35.5; BMI 42.7
--- NOTE | 2024-09-28 08:45 | PCM.WC.PN ---
History of Present Illness Date of Service: 09/28/24 Chief Complaint: Plantar lateral fifth metatarsal head ulceration right foot History of Wound: Ms. Myers is a 74-year-old currently being seen at the wound center and managed for diabetic foot ulcer. Due to stage of diabetic foot ulcer, consideration is for hyperbaric oxygen therapy to aid in healing. No prior history of hyperbaric oxygen therapy. No current tobacco use, quit in 1989. History of diabetes mellitus type 2 and most recent A1c said to be about 6.5. Also history of congestive heart failure, last ejection fraction at 35%. Follows up routinely with cardiology. She reports shortness of breath even at rest. No significant history of seizures or claustrophobia. Also denies any significant visual or auditory concerns. History of recurrent ear infections as a child. She feels well otherwise. Subjective Subjective This is a 74-year-old female who follows up today for continued care of a subfifth metatarsal head ulceration of the right and left foot. She has remained nonweightbearing to both lower extremities with the assistance of a wheelchair. Underwent surgical intervention on 07/14/2024 for bilateral fifth metatarsal head excisions with debridement of the ulceration sites of the right and left foot. Continues doing well since surgical intervention. She is accompanied by her son today. Son is assisting in changing outer dressings as needed to protect friable skin. Glucose 95 mg/dL. She denies constitutional symptoms. Denies further complaints. Objective Data Objective Data Vital Signs: Vital Signs Temp Pulse Resp BP 96 F L 76 18 147/69 H 09/27/24 00:36 09/27/24 00:36 09/27/24 00:36 09/27/24 00:36 Weight: 120.202 kg Body Mass Index (BMI) 42.7 Physical Exam Const alert, oriented x3 and no apparent distress General Appearance: cooperative HEENT normocephalic Eyes General Eye: normal appearance of both eyes Neck General: normal visual inspection Lymph Lymphatic: no lymphadenopathy noted and no lymphedema noted Resp normal respiratory effort Cardio regular rate and regular rhythm Extremity no calf tenderness Extremity Narrative: Bilateral lower extremity: Vascular: DP and PT pulses weakly palpable. CFT less than 5 seconds to the digits. Temperature gradient is normal. Hair growth is absent to digits. Neurologic: Light touch sensation diminished. Gross sensation intact. Protective sensation absent. Musculoskeletal: Muscle strength 4 of 5 due to generalized weakness as patient does not ambulate much. Decreased range of motion of the ankle joint dorsiflexion with the knee extended without pain or crepitus. Decreased range of motion of the STJ, MTJ, and first MTPJ without pain or crepitus. No pain to palpation around ulcerative site subfifth metatarsal head. Dermatologic: Full-thickness ulceration to the plantar lateral fifth metatarsal head of the right foot remains healed. She is s/p excision of fifth metatarsal head right foot with healed ulceration. Cicatrix dorsal 5th metatarsal. No signs of infection Left foot demonstrates ulceration subfifth metatarsal head with continued epithelialized tissue, nearing closure. She is s/p excision of fifth metatarsal head left foot. Cicatrix to dorsal foot. Ulceration site demonstrates no palpable fluctuance/bogginess, no purulent drainage, no malodor, no soft tissue crepitus. Bilateral lower extremities demonstrates edema with chronic venous stasis changes and dermatitis. Skin no rashes or lesions noted and skin turgor normal Neuro moves all extremities Debridement Note Debridement Note Wound debrided: Subfifth metatarsal head left foot Laterality: Left Wound Grade/Stage: Wyatt stage III Type of Debridement: Selective debridement Depth: Down to and including healthy tissue Percentage of wound debrided: 100 Instrument Used: #15 blade Tissue Removed: Devitalized skin and hyperkeratosis Severity: Limited To Skin Breakdown Amount of bleeding with debridement: None Patient tolerated procedure: Patient tolerated procedure well Assessment/Plan Assessment/Plan (1) Non-pressure chronic ulcer of other part of right foot with necrosis of muscle: CODE(S): L97.513 - Non-pressure chronic ulcer of other part of right foot with necrosis of muscle (2) Non-pressure chronic ulcer of other 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: CODE(S): L97.523 - Non-pressure chronic ulcer of other 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 (3) Type 2 diabetes mellitus with foot ulcer: CODE(S): E11.621 - Type 2 diabetes mellitus with foot ulcer; L97.509 - Non-pressure chronic ulcer of other part of unspecified foot with unspecified severity (4) Diabetes mellitus with diabetic polyneuropathy: CODE(S): E11.42 - Type 2 diabetes mellitus with diabetic polyneuropathy (5) PAD (peripheral artery disease): CODE(S): I73.9 - Peripheral vascular disease, unspecified (6) Debility: CODE(S): R53.81 - Other malaise (7) Chronic combined systolic and diastolic CHF (congestive heart failure): CODE(S): I50.42 - Chronic combined systolic (congestive) and diastolic (congestive) heart failure (8) Obesity: CODE(S): E66.9 - Obesity, unspecified PLAN: Plan Patient seen and evaluated She is s/p excision of fifth metatarsal head right foot and left foot, debridement of ulceration to the level of muscle left foot and right foot. DOS 07/14/2024. POD #76 Cicatrix to dorsal aspect of Right and Left foot. No signs of infection. Sites have healed well. Predebridement measurement: Right foot sub 5th met head healed; left foot sub 5th met head 0.1 cm x 0.1 cm x 0.1 cm Ulceration did undergo debridement as noted in the clinical panel above. Right foot remains healed; postdebridement measurement left foot 0.1 cm x 0.1 cm x 0.1 cm. DSD to applied to pad and protect right and left foot today. Her ulcerations have continued to decreased in size vs previous visit with right foot remaining healed and Left foot nearing healed status. Sites are healing well overall. At this time we will continue protective weightbearing to right and left foot with the assistance of a surgical shoe. Currently residing at home and her son does continue to check on them daily She has been cleared for HBO therapy. Labs were ordered consisting of CBC with differential, Chem 12, CXR, EKG, prealbumin, awaiting results. Patient will also see Dr. Aj for physical and clearance prior to HBO therapy. LEAS demonstrates mild arterial disease. Oral antibiotics completed 6 weeks total prior to surgery. Laboratory results performed 06/22/2024 demonstrate: WBC 7.4, Hgb 9.7, Hct 32.8, platelet 247, ESR 38, sodium 140, potassium 4.2, chloride 111, Carbon dioxide 26.0, BUN 42, Cr 1.67, HgbA1c 6.5%, AST 20, ALT 24, alkaline phosphatase 111, CRP 18.6, prealbumin 10. CRX was also completed 06/22/2024. Discussed continued elevation of lower extremities at times of rest to aid in edema control. Discussed rewrapping of Addy wrap's or utilize Tubigrip compression for continued edema control. Discussed continued adequate protein intake to aid in wound healing. Champ supplementation was also recommended. Discussed continued reduction of A1c to aid in wound healing. Recent A1c was 6% on 07/14/2024. Discussed daily foot checks as patient is diabetic and insensate to the foot. Discussed not ambulating barefoot and encouraged shoes to be worn once healed. Discussed overall she needs to reduce ambulation and rest with feet elevated to allow healing. I do feel she ambulates on the lateral aspect of foot due to unsteady gait and obesity which lead to her bilateral ulcerations. Discussed signs and symptoms of infection. Patient and her son were instructed if there is progressive redness about the wound or top of the foot that moves up the leg, red streaking up the leg, purulent drainage from the wound site, increasing foul odor from the wound, or if she experiences fever greater than 101 degree accompanied by nausea, vomiting, chills that these are signs of a progressing infection and she should report to the ED for further evaluation and IV antibiotics. She is understanding of this. The following work up and care recommendations were made: Dressing: Pad and protect right and left foot with dry sterile dressing. Wash: Soap and water Tissue growth optimization: None Offload: Surgical shoe to right and left foot with fifth metatarsal head cut out. Vascular: DP and PT pulses weakly palpable. LEAS demonstrates mild arterial disease bilateral. Edema: Bilateral lower extremity edema secondary to CHF. Continued elevation of lower extremities. Will aid in edema control via Addy wrap. Recommend continued Lasix. Infection: Underwent bilateral fifth metatarsal head excision on 07/14/2024. Right fifth metatarsal head pathology demonstrates acute osteomyelitis, left fifth metatarsal head pathology demonstrates acute inflammatory reactive changes but negative for osteomyelitis. Pain: May take [id number] Tylenol for any discomfort however patient does have a insensate foot secondary to diabetic peripheral polyneuropathy. Host factors: DM type II with peripheral polyneuropathy, CHF, lower extremity edema, CKD, HTN, advanced age, obesity, PVD. She did see Dr. Aj for HBO clearance and had been cleared, but with ulcerations healing post-surgical intervention we will refrain from performing HBO dives. I answered all the patient's questions. Will return to the wound care center in 2 weeks for continued postoperative care and continued debridement of ulceration sites. She is to call sooner for any questions or concerns.
[2024-09-28 08:46] VITALS: BP 112/47; PULSE 65; RESP 22; TEMP 36.6; BMI 42.7
[2024-10-12 08:34] VITALS: BP 155/63; PULSE 67; RESP 18; TEMP 36.1; BMI 42.7
--- NOTE | 2024-10-12 12:30 | PCM.WC.PN ---
History of Present Illness Date of Service: 10/12/24 Chief Complaint: Plantar lateral fifth metatarsal head ulceration right foot History of Wound: Ms. Myers is a 74-year-old currently being seen at the wound center and managed for diabetic foot ulcer. Due to stage of diabetic foot ulcer, consideration is for hyperbaric oxygen therapy to aid in healing. No prior history of hyperbaric oxygen therapy. No current tobacco use, quit in 1989. History of diabetes mellitus type 2 and most recent A1c said to be about 6.5. Also history of congestive heart failure, last ejection fraction at 35%. Follows up routinely with cardiology. She reports shortness of breath even at rest. No significant history of seizures or claustrophobia. Also denies any significant visual or auditory concerns. History of recurrent ear infections as a child. She feels well otherwise. Subjective Subjective This is a 74-year-old female who follows up today for continued care of a subfifth metatarsal head ulceration of the right and left foot. Underwent surgical intervention on 07/14/2024 for bilateral fifth metatarsal head excisions with debridement of the ulceration sites of the right and left foot. Continues doing well since surgical intervention. She is accompanied by her son today. Son states she has been walking barefoot around house. Right foot remains healed, Left foot has small area of drainage to which he continues daily dressing changes. Glucose 75 mg/dL. She denies constitutional symptoms. Denies further complaints. Objective Data Objective Data Vital Signs: Vital Signs Temp Pulse Resp BP O2 Del Method 96.9 F L 67 18 155/63 H Room Air 10/12/24 08:34 10/12/24 08:34 10/12/24 08:34 10/12/24 08:34 10/12/24 08:34 Oxygen Delivery Method Room Air Weight: 120.202 kg Body Mass Index (BMI) 42.7 Physical Exam Const alert, oriented x3 and no apparent distress General Appearance: cooperative HEENT normocephalic Eyes General Eye: normal appearance of both eyes Neck General: normal visual inspection Lymph Lymphatic: no lymphadenopathy noted and no lymphedema noted Resp normal respiratory effort Cardio regular rate and regular rhythm Extremity no calf tenderness Extremity Narrative: Bilateral lower extremity: Vascular: DP and PT pulses weakly palpable. CFT less than 5 seconds to the digits. Temperature gradient is normal. Hair growth is absent to digits. Neurologic: Light touch sensation diminished. Gross sensation intact. Protective sensation absent. Musculoskeletal: Muscle strength 4 of 5 due to generalized weakness as patient does not ambulate much. Decreased range of motion of the ankle joint dorsiflexion with the knee extended without pain or crepitus. Decreased range of motion of the STJ, MTJ, and first MTPJ without pain or crepitus. No pain to palpation around ulcerative site subfifth metatarsal head. Dermatologic: Full-thickness ulceration to the plantar lateral fifth metatarsal head of the right foot remains healed. She is s/p excision of fifth metatarsal head right foot with healed ulceration. Cicatrix dorsal 5th metatarsal. No signs of infection Left foot demonstrates ulceration subfifth metatarsal head with scant fibrous tissue and granular layer. She is s/p excision of fifth metatarsal head left foot. Cicatrix to dorsal foot. Ulceration site demonstrates no palpable fluctuance/bogginess, no purulent drainage, no malodor, no soft tissue crepitus. Bilateral lower extremities demonstrates edema with chronic venous stasis changes and dermatitis. Skin no rashes or lesions noted and skin turgor normal Neuro moves all extremities Debridement Note Debridement Note Wound debrided: Subfifth metatarsal head left foot Laterality: Left Wound Grade/Stage: Wyatt stage III Type of Debridement: Excisional debridement Anesthesia Used: 5% Lidocaine Gel Depth: Down to and including healthy tissue and in the subcutaneous layer Percentage of wound debrided: 100 Instrument Used: #15 blade Tissue Removed: Fibrous, devitalized subcutaneous, biofilm, slough Severity: Fat Layer Exposed Amount of bleeding with debridement: Mild Bleeding Controlled with: Compression and gauze Patient tolerated procedure: Patient tolerated procedure well Post-Debridement Measurements and Additional Note: Post-Debridement Measurements/Treatment - Nurse 1 - General Ulcer Assessment Start: 09/28/24 08:46 Freq: Status: Active Protocol: KAY Activity Type Activity Date Activity User E-sign Co-sign Detail Recorded Client Recorded Date Recorded By Document 09/28/24 08:46 MT [id number] 09/28/24 08:52 MT Document 10/12/24 08:34 KW [id number] 10/12/24 08:41 KW 09/28/24 10/12/24 08:46 08:34 - Today's Visit Information Type of service Follow-up Visit Follow-up Visit (Physician/INTERNAL MEDICINE PHYSICIAN (Physician/INTERNAL MEDICINE PHYSICIAN ) ) Arrival Mode Wheelchair Cane,Wheelchair Accompanied by son Patient Identification Verified (Name & Yes Yes ) Safety Precautions Fall Prevention Finger Stick Blood Sugar(mg/dl) (if 181 indicated): Blood Sugar Stated by Patient Height and Weight Body Mass Index (BMI) 42.7 42.7 BMI Classification Obese Obese Vital Signs Temperature (97.8 F-99.1 F) 98 F 96.9 F L Temperature Source Temporal Temporal Pulse Rate (60-100) 65 67 Pulse Location Monitor Monitor Respiratory Rate (12-18) 22 H 18 Respiratory rate source Observation Observation Oxygen Delivery Method Room Air Room Air Blood Pressure (90/60-120/80) 112/47 L 155/63 H Blood Pressure Mean (mm Hg) 68 93 Source Monitor Monitor Position Sitting Semi-Fowlers Blood Pressure Location Right Arm Left Forearm History Since Last Visit- (Skip if this is Patient's initial visit) Have you changed medications since your No last visit? Any new allergies or adverse reactions No Had a fall/change in ADL's that may No increase risk of falls Signs or symptoms of abuse and/or No neglect since last visit Have you been in the hospital since your No last visit? Has dressing in place as prescribed Yes Yes Has compression in place as prescribed Yes Yes Has offloadiing in place as prescribed Yes Yes Experienced any changes in pain level or Yes No management Left Footwear Diabetic Shoe Surgical Shoe with pressure relief insole Right Footwear Diabetic Shoe Surgical Shoe with pressure relief insole Pain Scale: 0-10 Numeric Is Patient Pain Free? Yes Yes WC - Nurse 1 - General Ulcer Measurement Start: 09/28/24 08:46 Freq: Status: Active Protocol: Activity Type Activity Date Activity User E-sign Co-sign Detail Recorded Client Recorded Date Recorded By Document 09/28/24 08:46 MT [id number] 09/28/24 08:52 MT Document 10/12/24 08:34 KW [id number] 10/12/24 08:41 KW Edit Result 10/12/24 08:34 KW (1) [id number] 10/12/24 08:43 KW (1) Right Calf (cm) => 43 Right Ankle (cm) => 24 Left Calf (cm) => 45 Left Ankle (cm) => 25.5 09/28/24 10/12/24 08:46 08:34 Wound Center Nurse 1 2. L plantar foot -Current Size (cm) - Length 0.1 3 -Current Size (cm) - Width 0.1 3 -Current Size (cm) - Depth 0.1 0.1 -Total Square Cm 0.01 9 -Tunneling No -Undermining/Tunneling No -Circular Undermining No -Exudate Amt Small Small -Exudate Type Serosanguineous Serosanguineous -Wound Margin Thickened & Distinct, Rolled Under Outline Attached -Granulation Amt Large (67-100%) Large (67-100%) -Granulation Quality Pale,[employer] -Necrosis Amt Small (1-33%) Small (1-33%) -Necrotic Tissue Type Adherent Slough Adherent Slough -Texture (Jaleesa-wound Skin Appearance) Assessed Assessed,Callus -Moisture (Jaleesa-wound Skin Appearance) Assessed Assessed, Maceration -Color (Jaleesa-wound Skin Appearance) Assessed Assessed -Temperature (Jaleesa-wound Skin No Abnormality No Abnormality Appearance) (Pt Warm) (Pt Warm) -Tenderness on Palpation (Jaleesa-wound No No Skin Appearance) -Ulcer Cleansing Soap and Water Soap and Water -Foul Odor after Cleansing No No -Anesthetic Used 5% Lidocaine 5% Lidocaine Gel Gel Right Calf (cm) 42.5 43 Right Ankle (cm) 24.5 24 Left Calf (cm) 43.5 45 Left Ankle (cm) 26.8 25.5 WC - Nurse 2 - General Ulcer CM Notes Start: 09/28/24 08:46 Freq: Status: Active Protocol: Activity Type Activity Date Activity User E-sign Co-sign Detail Recorded Client Recorded Date Recorded By Document 09/28/24 09:11 BMF [id number] 09/28/24 09:18 BMF Edit Result 09/28/24 09:11 BMF (1) [id number] 09/28/24 14:02 BMF Document 10/12/24 09:24 BMF [id number] 10/12/24 09:31 BMF (1) 2. L plantar foot - Correct Patient => Yes - Correct Side, Site, Position => Yes - Correct Procedure => Yes - Procedure Performed => Yes - Type of Procedure => Debridement - Clinical Debridement => Epidermis / Dermis - Tissue Removed => Epidermis,Dermis - Debridement - Open, 1st 20sq cm => Yes 09/28/24 10/12/24 09:11 09:24 Wound Center Nurse 2 2. L plantar foot -Time 09:11 09:25 -Correct Patient Yes Yes -Correct Side, Site, Position Yes Yes -Correct Procedure Yes Yes -Procedure Performed Yes Yes -Type of Procedure Debridement Debridement -Clinical Debridement Epidermis / Subcutaneous Dermis -Tissue Removed Epidermis, Subcutaneous Dermis -Post Debridement (cm) - Length 0.1 2.5 -Post Debridement (cm) - Width 0.1 1 -Post Debridement (cm) - Depth 0.1 0.1 -Total Square (Post) (cm) 0.01 2.5 -Area of Debridement (cm) - Length 0.1 2.5 -Area of Debridement (cm) - Width 0.1 1 -Total Square (Area) (cm) 0.01 2.5 -Tunneling No No -Undermining/Tunneling No No -Circular Undermining No No -Wound/Ulcer Outcome Not Healed Not Healed -Ulcer Cleansing Rinsed/ Irrigated with Saline -Foul Odor after Cleansing No -Bioengineered Tissue No -Bleeding Controlled with NA Pressure -Treatment Response Procedure Tolerated Well -Debridement - Open, 1st 20sq cm Yes -Debridement - Subq, 1st 20sq cm Yes Pain Scale: 0-10 Numeric Is Patient Pain Free? Yes Yes WC - Nurse 3 - General Ulcer D/C NN Start: 09/28/24 08:46 Freq: Status: Active Protocol: Activity Type Activity Date Activity User E-sign Co-sign Detail Recorded Client Recorded Date Recorded By Document 09/28/24 09:22 KW [id number] 09/28/24 09:22 KW Document 10/12/24 09:44 DL [id number] 10/12/24 09:55 DL 09/28/24 10/12/24 09:22 09:44 Wound Care Center Nurse 3 2. L plantar foot -Ulcer Cleansing Rinsed/ Irrigated with Saline -Foul Odor after Cleansing No -Primary Dressing Applied Promogran Judi Matter -Primary Dressing Covered/Secured with Dry Gauze & Dry Gauze & Roll Gauze, Roll Gauze, Secured with Secured with Tape Tape -Promogran Judi Matter 1 Left -Tubular Bandage Single Layer -Size of Tubigrip Used Size E -Size E ($) 1 taurus -Tubular Bandage Single Layer -Size of Tubigrip Used Size E -Size E ($) 1 Right -Tubular Bandage Single Layer -Size of Tubigrip Used Size E -Size E ($) 1 Pain Scale: 0-10 Numeric Is Patient Pain Free? Yes Yes WC - Visit Discharge Discharge Condition Stable Stable Ambulatory Status Wheelchair Ambulatory, Wheelchair Transportation Private Auto Private Auto Medication Reconcilliation completed & No provided to patient/care provider Clinical Summary of Care Provided Yes Assessment/Plan Assessment/Plan (1) Non-pressure chronic ulcer of other part of right foot with necrosis of muscle: CODE(S): L97.513 - Non-pressure chronic ulcer of other part of right foot with necrosis of muscle (2) Non-pressure chronic ulcer of other 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: CODE(S): L97.523 - Non-pressure chronic ulcer of other 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 (3) Type 2 diabetes mellitus with foot ulcer: CODE(S): E11.621 - Type 2 diabetes mellitus with foot ulcer; L97.509 - Non-pressure chronic ulcer of other part of unspecified foot with unspecified severity (4) Diabetes mellitus with diabetic polyneuropathy: CODE(S): E11.42 - Type 2 diabetes mellitus with diabetic polyneuropathy (5) PAD (peripheral artery disease): CODE(S): I73.9 - Peripheral vascular disease, unspecified (6) Debility: CODE(S): R53.81 - Other malaise (7) Chronic combined systolic and diastolic CHF (congestive heart failure): CODE(S): I50.42 - Chronic combined systolic (congestive) and diastolic (congestive) heart failure (8) Obesity: CODE(S): E66.9 - Obesity, unspecified PLAN: Plan Patient seen and evaluated She is s/p excision of fifth metatarsal head right foot and left foot, debridement of ulceration to the level of muscle left foot and right foot. DOS 07/14/2024. POD #90 Cicatrix to dorsal aspect of Right and Left foot. No signs of infection. Sites have healed well. Predebridement measurement: Right foot sub 5th met head healed; left foot sub 5th met head 2.0 cm x 0.8 cm x 0.1 cm Ulceration did undergo debridement as noted in the clinical panel above. Right foot remains healed; postdebridement measurement left foot 2.5 cm x 1.0 cm x 0.1 cm. Judi and DSD applied to site, change daily. Her ulceration to right foot remains healed, however left foot demonstrated irritation and reopening versus her previous visit. At this time we will continue protective weightbearing to right and left foot with the assistance of a surgical shoe. Discussed no barefoot ambulation and to always remain in the surgical shoe. Currently residing at home and her son does continue to check on them daily She has been cleared for HBO therapy. Labs were ordered consisting of CBC with differential, Chem 12, CXR, EKG, prealbumin, awaiting results. Patient will also see Dr. Aj for physical and clearance prior to HBO therapy. LEAS demonstrates mild arterial disease. Oral antibiotics completed 6 weeks total prior to surgery. Laboratory results performed 06/22/2024 demonstrate: WBC 7.4, Hgb 9.7, Hct 32.8, platelet 247, ESR 38, sodium 140, potassium 4.2, chloride 111, Carbon dioxide 26.0, BUN 42, Cr 1.67, HgbA1c 6.5%, AST 20, ALT 24, alkaline phosphatase 111, CRP 18.6, prealbumin 10. CRX was also completed 06/22/2024. Discussed continued elevation of lower extremities at times of rest to aid in edema control. Discussed rewrapping of Addy wrap's or utilize Tubigrip compression for continued edema control. Discussed continued adequate protein intake to aid in wound healing. Champ supplementation was also recommended. Discussed continued reduction of A1c to aid in wound healing. Recent A1c was 6% on 07/14/2024. Discussed daily foot checks as patient is diabetic and insensate to the foot. Discussed not ambulating barefoot and encouraged shoes to be worn once healed. Discussed overall she needs to reduce ambulation and rest with feet elevated to allow healing. I do feel she ambulates on the lateral aspect of foot due to unsteady gait and obesity which lead to her bilateral ulcerations. Discussed signs and symptoms of infection. Patient and her son were instructed if there is progressive redness about the wound or top of the foot that moves up the leg, red streaking up the leg, purulent drainage from the wound site, increasing foul odor from the wound, or if she experiences fever greater than 101 degree accompanied by nausea, vomiting, chills that these are signs of a progressing infection and she should report to the ED for further evaluation and IV antibiotics. She is understanding of this. The following work up and care recommendations were made: Dressing: Judi and dry sterile dressing, change daily Wash: Soap and water Tissue growth optimization: Judi Offload: Surgical shoe to right and left foot with fifth metatarsal head cut out. Vascular: DP and PT pulses weakly palpable. LEAS demonstrates mild arterial disease bilateral. Edema: Bilateral lower extremity edema secondary to CHF. Continued elevation of lower extremities. Will aid in edema control via Addy wrap. Recommend continued Lasix. Infection: Underwent bilateral fifth metatarsal head excision on 07/14/2024. Right fifth metatarsal head pathology demonstrates acute osteomyelitis, left fifth metatarsal head pathology demonstrates acute inflammatory reactive changes but negative for osteomyelitis. Pain: May take [id number] Tylenol for any discomfort however patient does have a insensate foot secondary to diabetic peripheral polyneuropathy. Host factors: DM type II with peripheral polyneuropathy, CHF, lower extremity edema, CKD, HTN, advanced age, obesity, PVD. She did see Dr. Aj for HBO clearance and had been cleared, but with ulcerations healing post-surgical intervention we will refrain from performing HBO dives. I answered all the patient's questions. Will return to the wound care center in 1 week for continued postoperative care and continued debridement of ulceration sites. She is to call sooner for any questions or concerns.
[2024-10-19 08:41] VITALS: BP 133/64; PULSE 61; RESP 18; TEMP 35.8; BMI 42.7
--- NOTE | 2024-10-19 09:01 | PN.PCM_ITS ---
History of Present Illness Date of Service: 10/19/24 Chief Complaint: Plantar lateral fifth metatarsal head ulceration right foot History of Wound: Ms. Myers is a 74-year-old currently being seen at the wound center and managed for diabetic foot ulcer. Due to stage of diabetic foot ulcer, consideration is for hyperbaric oxygen therapy to aid in healing. No prior history of hyperbaric oxygen therapy. No current tobacco use, quit in 1989. History of diabetes mellitus type 2 and most recent A1c said to be about 6.5. Also history of congestive heart failure, last ejection fraction at 35%. Follows up routinely with cardiology. She reports shortness of breath even at rest. No significant history of seizures or claustrophobia. Also denies any significant visual or auditory concerns. History of recurrent ear infections as a child. She feels well otherwise. Subjective Subjective This is a 74-year-old female who follows up today for continued care of a subfifth metatarsal head ulceration of the right and left foot. Underwent surgical intervention on 07/14/2024 for bilateral fifth metatarsal head excisions with debridement of the ulceration sites of the right and left foot. Continues doing well since surgical intervention. She is accompanied by her son today. Son states she continues walking barefoot around house. Right foot remains healed, Left foot has reopening of superficial ulceration to which he and her continue daily dressing changes. Glucose 77 mg/dL. She denies constitutional symptoms. Denies further complaints. Objective Data Objective Data Vital Signs: Vital Signs Temp Pulse Resp BP O2 Del Method 96.4 F L 61 18 133/64 H Room Air 10/19/24 08:41 10/19/24 08:41 10/19/24 08:41 10/19/24 08:41 10/12/24 08:34 Oxygen Delivery Method Room Air Weight: 120.202 kg Body Mass Index (BMI) 42.7 Physical Exam Const alert, oriented x3 and no apparent distress General Appearance: cooperative HEENT normocephalic Eyes General Eye: normal appearance of both eyes Neck General: normal visual inspection Lymph Lymphatic: no lymphadenopathy noted and no lymphedema noted Resp normal respiratory effort Cardio regular rate and regular rhythm Extremity no calf tenderness Extremity Narrative: Bilateral lower extremity: Vascular: DP and PT pulses weakly palpable. CFT less than 5 seconds to the digits. Temperature gradient is normal. Hair growth is absent to digits. Neurologic: Light touch sensation diminished. Gross sensation intact. Protective sensation absent. Musculoskeletal: Muscle strength 4 of 5 due to generalized weakness as patient does not ambulate much. Decreased range of motion of the ankle joint dorsiflexion with the knee extended without pain or crepitus. Decreased range of motion of the STJ, MTJ, and first MTPJ without pain or crepitus. No pain to palpation around ulcerative site subfifth metatarsal head. Dermatologic: Full-thickness ulceration to the plantar lateral fifth metatarsal head of the right foot remains healed. She is s/p excision of fifth metatarsal head right foot with healed ulceration. Cicatrix dorsal 5th metatarsal. No signs of infection Left foot demonstrates ulceration subfifth metatarsal head with scant fibrous tissue and granular layer. She is s/p excision of fifth metatarsal head left foot. Cicatrix to dorsal foot. Ulceration site demonstrates no palpable fluctuance/bogginess, no purulent drainage, no malodor, no soft tissue crepitus. Bilateral lower extremities demonstrates edema with chronic venous stasis changes and dermatitis. Skin no rashes or lesions noted and skin turgor normal Neuro moves all extremities Debridement Note Debridement Note Wound debrided: Subfifth metatarsal head left foot Laterality: Left Wound Grade/Stage: Wyatt stage III Type of Debridement: Excisional debridement Anesthesia Used: 5% Lidocaine Gel Depth: Down to and including healthy tissue and in the subcutaneous layer Percentage of wound debrided: 100 Instrument Used: #15 blade Tissue Removed: Fibrous, devitalized subcutaneous, biofilm, slough Severity: Fat Layer Exposed Amount of bleeding with debridement: Mild Bleeding Controlled with: Compression and gauze Patient tolerated procedure: Patient tolerated procedure well Post-Debridement Measurements and Additional Note: Post-Debridement Measurements/Treatment - Nurse 1 - General Ulcer Assessment Start: 09/28/24 08:46 Freq: Status: Active Protocol: KAY Activity Type Activity Date Activity User E-sign Co-sign Detail Recorded Client Recorded Date Recorded By Document 09/28/24 08:46 MT [id number] 09/28/24 08:52 MT Document 10/12/24 08:34 KW [id number] 10/12/24 08:41 KW Document 10/19/24 08:41 RB [id number] 10/19/24 08:43 RB 09/28/24 10/12/24 10/19/24 08:46 08:34 08:41 - Today's Visit Information Type of service Follow-up Visit Follow-up Visit Follow-up Visit (Physician/[employer] WORK[employer] (Physician/[employer] WORKER (Physician/[employer] WORKER ) ) ) Arrival Mode Wheelchair Cane,Wheelchair Wheelchair Transfer Assistance Manual Accompanied by son Patient Identification Verified (Name & Yes Yes Yes ) Patient Requires Transmission-Based No Precautions Safety Precautions Fall Prevention Finger Stick Blood Sugar(mg/dl) (if 181 indicated): Blood Sugar Stated by Patient Height and Weight Body Mass Index (BMI) 42.7 42.7 42.7 BMI Classification Obese Obese Obese Vital Signs Temperature (97.8 F-99.1 F) 98 F 96.9 F L 96.4 F L Temperature Source Temporal Temporal Temporal Pulse Rate (60-100) 65 67 61 Pulse Location Monitor Monitor Monitor Respiratory Rate (12-18) 22 H 18 18 Respiratory rate source Observation Observation Observation Oxygen Delivery Method Room Air Room Air Blood Pressure (90/60-120/80) 112/47 L 155/63 H 133/64 H Blood Pressure Mean (mm Hg) 68 93 87 Source Monitor Monitor Monitor Position Sitting Semi-Fowlers Semi-Fowlers Blood Pressure Location Right Arm Left Forearm Left Arm History Since Last Visit- (Skip if this is Patient's initial visit) Have you changed medications since your No No last visit? Any new allergies or adverse reactions No No Had a fall/change in ADL's that may No No increase risk of falls Signs or symptoms of abuse and/or No No neglect since last visit Have you been in the hospital since your No No last visit? Has dressing in place as prescribed Yes Yes Yes Has compression in place as prescribed Yes Yes Yes Has offloadiing in place as prescribed Yes Yes Yes Experienced any changes in pain level or Yes No No management Left Footwear Diabetic Shoe Surgical Shoe with pressure relief insole Right Footwear Diabetic Shoe Surgical Shoe with pressure relief insole Pain Scale: 0-10 Numeric Is Patient Pain Free? Yes Yes Yes - Nurse 1 - General Ulcer Measurement Start: 09/28/24 08:46 Freq: Status: Active Protocol: Activity Type Activity Date Activity User E-sign Co-sign Detail Recorded Client Recorded Date Recorded By Document 09/28/24 08:46 MT [id number] 09/28/24 08:52 MT Document 10/12/24 08:34 KW [id number] 10/12/24 08:41 KW Edit Result 10/12/24 08:34 KW (1) [id number] 10/12/24 08:43 KW Document 10/19/24 08:41 RB [id number] 10/19/24 08:43 RB (1) Right Calf (cm) => 43 Right Ankle (cm) => 24 Left Calf (cm) => 45 Left Ankle (cm) => 25.5 09/28/24 10/12/24 10/19/24 08:46 08:34 08:41 Wound Center Nurse 1 2. L plantar foot -Combined with other wound No -Current Size (cm) - Length 0.1 3 2.3 -Current Size (cm) - Width 0.1 3 2.2 -Current Size (cm) - Depth 0.1 0.1 0.1 -Total Square Cm 0.01 9 5.06 -Tunneling No No -Undermining/Tunneling No No -Circular Undermining No No -Exudate Amt Small Small Large -Exudate Type Serosanguineous Serosanguineous Serosanguineous -Wound Margin Thickened & Distinct, Thickened Rolled Under Outline Attached -Granulation Amt Large (67-100%) Large (67-100%) Medium (34-66%) -Granulation Quality Pale,[place] -Slough/Fibrin Yes -Necrosis Amt Small (1-33%) Small (1-33%) Medium (34-66%) -Necrotic Tissue Type Adherent Slough Adherent Slough Adherent Slough -Structure Exposed N/A -Texture (Jaleesa-wound Skin Appearance) Assessed Assessed,Callus Callus -Moisture (Jaleesa-wound Skin Appearance) Assessed Assessed, Assessed Maceration -Color (Jaleesa-wound Skin Appearance) Assessed Assessed Assessed -Temperature (Jaleesa-wound Skin No Abnormality No Abnormality No Abnormality Appearance) (Pt Warm) (Pt Warm) (Pt Warm) -Tenderness on Palpation (Jaleesa-wound No No No Skin Appearance) -Ulcer Cleansing Soap and Water Soap and Water Wound Cleanser -Foul Odor after Cleansing No No No -Anesthetic Used 5% Lidocaine 5% Lidocaine 5% Lidocaine Gel Gel Gel Lower Limb Edema Present Yes Right Calf (cm) 42.5 43 Right Ankle (cm) 24.5 24 Left Calf (cm) 43.5 45 46.2 Left Ankle (cm) 26.8 25.5 26 WC - Nurse 2 - General Ulcer CM Notes Start: 09/28/24 08:46 Freq: Status: Active Protocol: Activity Type Activity Date Activity User E-sign Co-sign Detail Recorded Client Recorded Date Recorded By Document 09/28/24 09:11 BMF [id number] 09/28/24 09:18 BMF Edit Result 09/28/24 09:11 BMF (1) [id number] 09/28/24 14:02 BMF Document 10/12/24 09:24 BMF [id number] 10/12/24 09:31 BMF Document 10/19/24 08:51 BMF [id number] 10/19/24 08:56 BMF (1) 2. L plantar foot - Correct Patient => Yes - Correct Side, Site, Position => Yes - Correct Procedure => Yes - Procedure Performed => Yes - Type of Procedure => Debridement - Clinical Debridement => Epidermis / Dermis - Tissue Removed => Epidermis,Dermis - Debridement - Open, 1st 20sq cm => Yes 09/28/24 10/12/24 10/19/24 09:11 09:24 08:51 Wound Center Nurse 2 2. L plantar foot -Time 09:11 09:25 08:52 -Correct Patient Yes Yes Yes -Correct Side, Site, Position Yes Yes Yes -Correct Procedure Yes Yes Yes -Procedure Performed Yes Yes Yes -Type of Procedure Debridement Debridement Debridement -Clinical Debridement Epidermis / Subcutaneous Subcutaneous Dermis -Tissue Removed Epidermis, Subcutaneous Subcutaneous Dermis -Post Debridement (cm) - Length 0.1 2.5 2.8 -Post Debridement (cm) - Width 0.1 1 1.6 -Post Debridement (cm) - Depth 0.1 0.1 0.1 -Total Square (Post) (cm) 0.01 2.5 4.48 -Area of Debridement (cm) - Length 0.1 2.5 2.8 -Area of Debridement (cm) - Width 0.1 1 1.6 -Total Square (Area) (cm) 0.01 2.5 4.48 -Tunneling No No No -Undermining/Tunneling No No No -Circular Undermining No No No -Wound/Ulcer Outcome Not Healed Not Healed Not Healed -Ulcer Cleansing Rinsed/ Rinsed/ Irrigated with Irrigated with Saline Saline -Foul Odor after Cleansing No No -Bioengineered Tissue No No -Bleeding Controlled with NA Pressure Pressure -Treatment Response Procedure Procedure Tolerated Well Tolerated Well -Debridement - Open, 1st 20sq cm Yes -Debridement - Subq, 1st 20sq cm Yes Yes Pain Scale: 0-10 Numeric Is Patient Pain Free? Yes Yes Yes - Nurse 3 - General Ulcer D/C NN Start: 09/28/24 08:46 Freq: Status: Active Protocol: Activity Type Activity Date Activity User E-sign Co-sign Detail Recorded Client Recorded Date Recorded By Document 09/28/24 09:22 KW [id number] 09/28/24 09:22 KW Document 10/12/24 09:44 DL [id number] 10/12/24 09:55 DL 09/28/24 10/12/24 09:22 09:44 Wound Care Center Nurse 3 2. L plantar foot -Ulcer Cleansing Rinsed/ Irrigated with Saline -Foul Odor after Cleansing No -Primary Dressing Applied Promogran Judi Matter -Primary Dressing Covered/Secured with Dry Gauze & Dry Gauze & Roll Gauze, Roll Gauze, Secured with Secured with Tape Tape -Promogran Judi Matter 1 Left -Tubular Bandage Single Layer -Size of Tubigrip Used Size E -Size E ($) 1 taurus -Tubular Bandage Single Layer -Size of Tubigrip Used Size E -Size E ($) 1 Right -Tubular Bandage Single Layer -Size of Tubigrip Used Size E -Size E ($) 1 Pain Scale: 0-10 Numeric Is Patient Pain Free? Yes Yes - Visit Discharge Discharge Condition Stable Stable Ambulatory Status Wheelchair Ambulatory, Wheelchair Transportation Private Auto Private Auto Medication Reconcilliation completed & No provided to patient/care provider Clinical Summary of Care Provided Yes Assessment/Plan Assessment/Plan (1) Non-pressure chronic ulcer of other part of right foot with necrosis of muscle: CODE(S): L97.513 - Non-pressure chronic ulcer of other part of right foot with necrosis of muscle (2) Non-pressure chronic ulcer of other 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: CODE(S): L97.523 - Non-pressure chronic ulcer of other 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 (3) Type 2 diabetes mellitus with foot ulcer: CODE(S): E11.621 - Type 2 diabetes mellitus with foot ulcer; L97.509 - Non-pressure chronic ulcer of other part of unspecified foot with unspecified severity (4) Diabetes mellitus with diabetic polyneuropathy: CODE(S): E11.42 - Type 2 diabetes mellitus with diabetic polyneuropathy (5) PAD (peripheral artery disease): CODE(S): I73.9 - Peripheral vascular disease, unspecified (6) Debility: CODE(S): R53.81 - Other malaise (7) Chronic combined systolic and diastolic CHF (congestive heart failure): CODE(S): I50.42 - Chronic combined systolic (congestive) and diastolic (congestive) heart failure (8) Obesity: CODE(S): E66.9 - Obesity, unspecified PLAN: Plan Patient seen and evaluated She is s/p excision of fifth metatarsal head right foot and left foot, debridement of ulceration to the level of muscle left foot and right foot. DOS 07/14/2024. POD #97 Cicatrix to dorsal aspect of Right and Left foot. No signs of infection. Sites have healed well. Predebridement measurement: Right foot sub 5th met head healed; left foot sub 5th met head 2.7 cm x 1.5 cm x 0.1 cm Ulceration did undergo debridement as noted in the clinical panel above. Right foot remains healed; postdebridement measurement left foot 2.8 cm x 1.6 cm x 0.1 cm. Judi and DSD applied to site, change daily. Her ulceration to right foot remains healed, however left foot demonstrates continued irritation and remains with superficial ulceration with some increase in size versus her previous visit. At this time we will continue protective weightbearing to right and left foot with the assistance of a surgical shoe. Discussed no barefoot ambulation and to always remain in the surgical shoe. Currently residing at home and her son does continue to check on them daily She has been cleared for HBO therapy. Labs were ordered consisting of CBC with differential, Chem 12, CXR, EKG, prealbumin, awaiting results. Patient will also see Dr. Aj for physical and clearance prior to HBO therapy. LEAS demonstrates mild arterial disease. Oral antibiotics completed 6 weeks total prior to surgery. Laboratory results performed 06/22/2024 demonstrate: WBC 7.4, Hgb 9.7, Hct 32.8, platelet 247, ESR 38, sodium 140, potassium 4.2, chloride 111, Carbon dioxide 26.0, BUN 42, Cr 1.67, HgbA1c 6.5%, AST 20, ALT 24, alkaline phosphatase 111, CRP 18.6, prealbumin 10. CRX was also completed 06/22/2024. Discussed continued elevation of lower extremities at times of rest to aid in edema control. Discussed rewrapping of Addy wrap's or utilize Tubigrip compression for continued edema control. Discussed continued adequate protein intake to aid in wound healing. Champ supplementation was also recommended. Discussed continued reduction of A1c to aid in wound healing. Recent A1c was 6% on 07/14/2024. Discussed daily foot checks as patient is diabetic and insensate to the foot. Discussed not ambulating barefoot and encouraged shoes to be worn once healed. Discussed overall she needs to reduce ambulation and rest with feet elevated to allow healing. I do feel she ambulates on the lateral aspect of foot due to unsteady gait and obesity which lead to her bilateral ulcerations. Discussed signs and symptoms of infection. Patient and her son were instructed if there is progressive redness about the wound or top of the foot that moves up the leg, red streaking up the leg, purulent drainage from the wound site, increasing foul odor from the wound, or if she experiences fever greater than 101 degree accompanied by nausea, vomiting, chills that these are signs of a progressing infection and she should report to the ED for further evaluation and IV antibiotics. She is understanding of this. The following work up and care recommendations were made: Dressing: Judi and dry sterile dressing, change daily Wash: Soap and water Tissue growth optimization: Judi Offload: Surgical shoe to right and left foot with fifth metatarsal head cut out. Vascular: DP and PT pulses weakly palpable. LEAS demonstrates mild arterial disease bilateral. Edema: Bilateral lower extremity edema secondary to CHF. Continued elevation of lower extremities. Will aid in edema control via Addy wrap. Recommend continued Lasix. Infection: Underwent bilateral fifth metatarsal head excision on 07/14/2024. Right fifth metatarsal head pathology demonstrates acute osteomyelitis, left fifth metatarsal head pathology demonstrates acute inflammatory reactive changes but negative for osteomyelitis. Pain: May take [id number] Tylenol for any discomfort however patient does have a insensate foot secondary to diabetic peripheral polyneuropathy. Host factors: DM type II with peripheral polyneuropathy, CHF, lower extremity edema, CKD, HTN, advanced age, obesity, PVD. She did see Dr. Aj for HBO clearance and had been cleared, but with ulcerations healing post-surgical intervention we will refrain from performing HBO dives. I answered all the patient's questions. Will return to the wound care center in 1 week for continued postoperative care and continued debridement of ulceration sites. She is to call sooner for any questions or concerns.
[2024-10-26 08:38] VITALS: BP 113/50; PULSE 69; RESP 22; TEMP 36.4; BMI 42.7
--- NOTE | 2024-10-26 09:57 | PCM.WC.PN ---
History of Present Illness Date of Service: 10/26/24 Chief Complaint: Plantar lateral fifth metatarsal head ulceration right foot History of Wound: Ms. Myers is a 74-year-old currently being seen at the wound center and managed for diabetic foot ulcer. Due to stage of diabetic foot ulcer, consideration is for hyperbaric oxygen therapy to aid in healing. No prior history of hyperbaric oxygen therapy. No current tobacco use, quit in 1989. History of diabetes mellitus type 2 and most recent A1c said to be about 6.5. Also history of congestive heart failure, last ejection fraction at 35%. Follows up routinely with cardiology. She reports shortness of breath even at rest. No significant history of seizures or claustrophobia. Also denies any significant visual or auditory concerns. History of recurrent ear infections as a child. She feels well otherwise. Subjective Subjective This is a 74-year-old female who follows up today for continued care of a subfifth metatarsal head ulceration of the right and left foot. Underwent surgical intervention on 07/14/2024 for bilateral fifth metatarsal head excisions with debridement of the ulceration sites of the right and left foot. Continues doing well since surgical intervention. She is accompanied by her son today. Son states she continues walking barefoot around house. Right foot remains healed, Left foot continues superficial ulceration to which he and her continue daily dressing changes. She is willing to undergo debridement to level of bone today. Glucose 89 mg/dL. She denies constitutional symptoms. Denies further complaints. Objective Data Objective Data Vital Signs: Vital Signs Temp Pulse Resp BP O2 Del Method 97.6 F L 69 22 H 113/50 L Room Air 10/26/24 08:38 10/26/24 08:38 10/26/24 08:38 10/26/24 08:38 10/12/24 08:34 Oxygen Delivery Method Room Air Weight: 120.202 kg Body Mass Index (BMI) 42.7 Physical Exam Const alert, oriented x3 and no apparent distress General Appearance: cooperative HEENT normocephalic Eyes General Eye: normal appearance of both eyes Neck General: normal visual inspection Lymph Lymphatic: no lymphadenopathy noted and no lymphedema noted Resp normal respiratory effort Cardio regular rate and regular rhythm Extremity no calf tenderness Extremity Narrative: Bilateral lower extremity: Vascular: DP and PT pulses weakly palpable. CFT less than 5 seconds to the digits. Temperature gradient is normal. Hair growth is absent to digits. Neurologic: Light touch sensation diminished. Gross sensation intact. Protective sensation absent. Musculoskeletal: Muscle strength 4 of 5 due to generalized weakness as patient does not ambulate much. Decreased range of motion of the ankle joint dorsiflexion with the knee extended without pain or crepitus. Decreased range of motion of the STJ, MTJ, and first MTPJ without pain or crepitus. No pain to palpation around ulcerative site subfifth metatarsal head. Dermatologic: Full-thickness ulceration to the plantar lateral fifth metatarsal head of the right foot remains healed. She is s/p excision of fifth metatarsal head right foot with healed ulceration. Cicatrix dorsal 5th metatarsal. No signs of infection Left foot demonstrates ulceration subfifth metatarsal head with scant fibrous tissue and granular layer. She is s/p excision of fifth metatarsal head left foot. Cicatrix to dorsal foot. Ulceration site demonstrates no palpable fluctuance/bogginess, no purulent drainage, no malodor, no soft tissue crepitus. Bilateral lower extremities demonstrates edema with chronic venous stasis changes and dermatitis. Skin no rashes or lesions noted and skin turgor normal Neuro moves all extremities Debridement Note Debridement Note Wound debrided: Subfifth metatarsal left foot Laterality: Left Wound Grade/Stage: Wyatt stage III Type of Debridement: Excisional debridement Anesthesia Used: 5% Lidocaine Gel and - (10 cc 1% lidocaine with epinephrine) Depth: Down to and including healthy tissue, in the subcutaneous layer, to muscle and to bone Percentage of wound debrided: 100 Instrument Used: #15 blade, Forceps and - (Bone cutter) Tissue Removed: Fibrous, devitalized subcutaneous, biofilm, slough, hard prominent bone Severity: Fat Layer Exposed Amount of bleeding with debridement: Mild Bleeding Controlled with: Compression and gauze Patient tolerated procedure: Patient tolerated procedure well Post-Debridement Measurements and Additional Note: Post-Debridement Measurements/Treatment WC - Nurse 1 - General Ulcer Assessment Start: 09/28/24 08:46 Freq: Status: Active Protocol: JERRIEXT Activity Type Activity Date Activity User E-sign Co-sign Detail Recorded Client Recorded Date Recorded By Document 09/28/24 08:46 MT [id number] 09/28/24 08:52 MT Document 10/12/24 08:34 KW [id number] 10/12/24 08:41 KW Document 10/19/24 08:41 RB [id number] 10/19/24 08:43 RB Document 10/26/24 08:38 DL [id number] 10/26/24 08:47 DL 09/28/24 10/12/24 10/19/24 08:46 08:34 08:41 WC - Today's Visit Information Type of service Follow-up Visit Follow-up Visit Follow-up Visit (Physician/BEHAVIORAL HEALTH CARE MANAGER (Physician/BEHAVIORAL HEALTH CARE MANAGER (Physician/BEHAVIORAL HEALTH CARE MANAGER ) ) ) Arrival Mode Wheelchair Cane,Wheelchair Wheelchair Transfer Assistance Manual Transfer Assist (Other) Accompanied by son Patient Identification Verified (Name & Yes Yes Yes ) Patient Requires Transmission-Based No Precautions Safety Precautions Fall Prevention Finger Stick Blood Sugar(mg/dl) (if 181 indicated): Blood Sugar Stated by Patient Height and Weight Body Mass Index (BMI) 42.7 42.7 42.7 BMI Classification Obese Obese Obese Vital Signs Temperature (97.8 F-99.1 F) 98 F 96.9 F L 96.4 F L Temperature Source Temporal Temporal Temporal Pulse Rate (60-100) 65 67 61 Pulse Location Monitor Monitor Monitor Respiratory Rate (12-18) 22 H 18 18 Respiratory rate source Observation Observation Observation Oxygen Delivery Method Room Air Room Air Blood Pressure (90/60-120/80) 112/47 L 155/63 H 133/64 H Blood Pressure Mean (mm Hg) 68 93 87 Source Monitor Monitor Monitor Position Sitting Semi-Fowlers Semi-Fowlers Blood Pressure Location Right Arm Left Forearm Left Arm History Since Last Visit- (Skip if this is Patient's initial visit) Have you changed medications since your No No last visit? Any new allergies or adverse reactions No No Had a fall/change in ADL's that may No No increase risk of falls Signs or symptoms of abuse and/or No No neglect since last visit Have you been in the hospital since your No No last visit? Has dressing in place as prescribed Yes Yes Yes Has compression in place as prescribed Yes Yes Yes Has offloadiing in place as prescribed Yes Yes Yes Experienced any changes in pain level or Yes No No management Left Footwear Diabetic Shoe Surgical Shoe with pressure relief insole Right Footwear Diabetic Shoe Surgical Shoe with pressure relief insole Pain Scale: 0-10 Numeric Is Patient Pain Free? Yes Yes Yes 10/26/24 08:38 WC - Today's Visit Information Type of service Follow-up Visit (Physician/BEHAVIORAL HEALTH CARE MANAGER ) Arrival Mode Transfer Assistance Manual Transfer Assist (Other) x1 Accompanied by Patient Identification Verified (Name & Yes ) Patient Requires Transmission-Based No Precautions Safety Precautions Finger Stick Blood Sugar(mg/dl) (if indicated): Blood Sugar Height and Weight Body Mass Index (BMI) 42.7 BMI Classification Obese Vital Signs Temperature (97.8 F-99.1 F) 97.6 F L Temperature Source Temporal Pulse Rate (60-100) 69 Pulse Location Monitor Respiratory Rate (12-18) 22 H Respiratory rate source Observation Oxygen Delivery Method Blood Pressure (90/60-120/80) 113/50 L Blood Pressure Mean (mm Hg) 71 Source Monitor Position Blood Pressure Location History Since Last Visit- (Skip if this is Patient's initial visit) Have you changed medications since your No last visit? Any new allergies or adverse reactions No Had a fall/change in ADL's that may No increase risk of falls Signs or symptoms of abuse and/or No neglect since last visit Have you been in the hospital since your No last visit? Has dressing in place as prescribed Yes Has compression in place as prescribed Yes Has offloadiing in place as prescribed Yes Experienced any changes in pain level or No management Left Footwear Surgical Shoe with pressure relief insole Right Footwear Pain Scale: 0-10 Numeric Is Patient Pain Free? Yes WC - Nurse 1 - General Ulcer Measurement Start: 09/28/24 08:46 Freq: Status: Active Protocol: Activity Type Activity Date Activity User E-sign Co-sign Detail Recorded Client Recorded Date Recorded By Document 09/28/24 08:46 MT [id number] 09/28/24 08:52 MT Document 10/12/24 08:34 KW [id number] 10/12/24 08:41 KW Edit Result 10/12/24 08:34 KW (1) [id number] 10/12/24 08:43 KW Document 10/19/24 08:41 RB [id number] 10/19/24 08:43 RB Document 10/26/24 08:38 DL [id number] 10/26/24 08:47 DL (1) Right Calf (cm) => 43 Right Ankle (cm) => 24 Left Calf (cm) => 45 Left Ankle (cm) => 25.5 09/28/24 10/12/24 10/19/24 08:46 08:34 08:41 Wound Center Nurse 1 2. L plantar foot -Combined with other wound No -Current Size (cm) - Length 0.1 3 2.3 -Current Size (cm) - Width 0.1 3 2.2 -Current Size (cm) - Depth 0.1 0.1 0.1 -Total Square Cm 0.01 9 5.06 -Photo Taken -Tunneling No No -Undermining/Tunneling No No -Circular Undermining No No -Exudate Amt Small Small Large -Exudate Type Serosanguineous Serosanguineous Serosanguineous -Wound Margin Thickened & Distinct, Thickened Rolled Under Outline Attached -Granulation Amt Large (67-100%) Large (67-100%) Medium (34-66%) -Granulation Quality Pale,Front Royal Front Royal Front Royal -Slough/Fibrin Yes -Necrosis Amt Small (1-33%) Small (1-33%) Medium (34-66%) -Necrotic Tissue Type Adherent Slough Adherent Slough Adherent Slough -Structure Exposed N/A -Texture (Jaleesa-wound Skin Appearance) Assessed Assessed,Callus Callus -Moisture (Jaleesa-wound Skin Appearance) Assessed Assessed, Assessed Maceration -Color (Jaleesa-wound Skin Appearance) Assessed Assessed Assessed -Temperature (Jaleesa-wound Skin No Abnormality No Abnormality No Abnormality Appearance) (Pt Warm) (Pt Warm) (Pt Warm) -Tenderness on Palpation (Jaleesa-wound No No No Skin Appearance) -Ulcer Cleansing Soap and Water Soap and Water Wound Cleanser -Foul Odor after Cleansing No No No -Anesthetic Used 5% Lidocaine 5% Lidocaine 5% Lidocaine Gel Gel Gel Lower Limb Edema Present Yes Right Calf (cm) 42.5 43 Right Ankle (cm) 24.5 24 Left Calf (cm) 43.5 45 46.2 Left Ankle (cm) 26.8 25.5 26 10/26/24 08:38 Wound Center Nurse 1 2. L plantar foot -Combined with other wound -Current Size (cm) - Length 2.1 -Current Size (cm) - Width 1.2 -Current Size (cm) - Depth 0.2 -Total Square Cm 2.52 -Photo Taken Yes -Tunneling -Undermining/Tunneling -Circular Undermining -Exudate Amt Small -Exudate Type -Wound Margin Thickened -Granulation Amt Medium (34-66%) -Granulation Quality [place] -Slough/Fibrin -Necrosis Amt Medium (34-66%) -Necrotic Tissue Type Adherent Slough -Structure Exposed N/A -Texture (Jaleesa-wound Skin Appearance) Localized Edema ,Scarring -Moisture (Jaleesa-wound Skin Appearance) Dry/Scaly -Color (Jaleesa-wound Skin Appearance) No Abnormality -Temperature (Jaleesa-wound Skin No Abnormality Appearance) (Pt Warm) -Tenderness on Palpation (Jaleesa-wound No Skin Appearance) -Ulcer Cleansing Soap and Water -Foul Odor after Cleansing No -Anesthetic Used 5% Lidocaine Gel Lower Limb Edema Present Right Calf (cm) 45.6 Right Ankle (cm) 24.5 Left Calf (cm) 43.5 Left Ankle (cm) 26.2 WC - Nurse 2 - General Ulcer CM Notes Start: 09/28/24 08:46 Freq: Status: Active Protocol: Activity Type Activity Date Activity User E-sign Co-sign Detail Recorded Client Recorded Date Recorded By Document 09/28/24 09:11 BMF [id number] 09/28/24 09:18 BMF Edit Result 09/28/24 09:11 BMF (1) [id number] 09/28/24 14:02 BMF Document 10/12/24 09:24 BMF [id number] 10/12/24 09:31 BMF Document 10/19/24 08:51 BMF [id number] 10/19/24 08:56 BMF (1) 2. L plantar foot - Correct Patient => Yes - Correct Side, Site, Position => Yes - Correct Procedure => Yes - Procedure Performed => Yes - Type of Procedure => Debridement - Clinical Debridement => Epidermis / Dermis - Tissue Removed => Epidermis,Dermis - Debridement - Open, 1st 20sq cm => Yes 09/28/24 10/12/24 10/19/24 09:11 09:24 08:51 Wound Center Nurse 2 2. L plantar foot -Time 09: 09:25 08:52 -Correct Patient Yes Yes Yes -Correct Side, Site, Position Yes Yes Yes -Correct Procedure Yes Yes Yes -Procedure Performed Yes Yes Yes -Type of Procedure Debridement Debridement Debridement -Clinical Debridement Epidermis / Subcutaneous Subcutaneous Dermis -Tissue Removed Epidermis, Subcutaneous Subcutaneous Dermis -Post Debridement (cm) - Length 0.1 2.5 2.8 -Post Debridement (cm) - Width 0.1 1 1.6 -Post Debridement (cm) - Depth 0.1 0.1 0.1 -Total Square (Post) (cm) 0.01 2.5 4.48 -Area of Debridement (cm) - Length 0.1 2.5 2.8 -Area of Debridement (cm) - Width 0.1 1 1.6 -Total Square (Area) (cm) 0.01 2.5 4.48 -Tunneling No No No -Undermining/Tunneling No No No -Circular Undermining No No No -Wound/Ulcer Outcome Not Healed Not Healed Not Healed -Ulcer Cleansing Rinsed/ Rinsed/ Irrigated with Irrigated with Saline Saline -Foul Odor after Cleansing No No -Bioengineered Tissue No No -Bleeding Controlled with NA Pressure Pressure -Treatment Response Procedure Procedure Tolerated Well Tolerated Well -Debridement - Open, 1st 20sq cm Yes -Debridement - Subq, 1st 20sq cm Yes Yes Pain Scale: 0-10 Numeric Is Patient Pain Free? Yes Yes Yes WC - Nurse 3 - General Ulcer D/C NN Start: 09/28/24 08:46 Freq: Status: Active Protocol: Activity Type Activity Date Activity User E-sign Co-sign Detail Recorded Client Recorded Date Recorded By Document 09/28/24 09:22 KW [id number] 09/28/24 09:22 KW Document 10/12/24 09:44 DL [id number] 10/12/24 09:55 DL Document 10/19/24 09:08 DL [id number] 10/19/24 09:09 DL 09/28/24 10/12/24 10/19/24 09:22 09:44 09:08 Wound Care Center Nurse 3 2. L plantar foot -Ulcer Cleansing Rinsed/ Rinsed/ Irrigated with Irrigated with Saline Saline -Foul Odor after Cleansing No No -Primary Dressing Applied Promogran Promogran Judi Matter Judi Matter -Primary Dressing Covered/Secured with Dry Gauze & Dry Gauze & Dry Gauze & Roll Gauze, Roll Gauze, Roll Gauze, Secured with Secured with Secured with Tape Tape Tape -Promogran Judi Matter 1 1 Left -Tubular Bandage Single Layer Single Layer -Size of Tubigrip Used Size E Size E -Size E ($) 1 1 taurus -Tubular Bandage Single Layer -Size of Tubigrip Used Size E -Size E ($) 1 Right -Tubular Bandage Single Layer -Size of Tubigrip Used Size E -Size E ($) 1 Treatment Response Procedure Tolerated Well Pain Scale: 0-10 Numeric Is Patient Pain Free? Yes Yes Yes WC - Visit Discharge Discharge Condition Stable Stable Stable Ambulatory Status Wheelchair Ambulatory, Ambulatory,Cane Wheelchair ,Wheelchair Transportation Private Auto Private Auto Private Auto Medication Reconcilliation completed & No provided to patient/care provider Clinical Summary of Care Provided Yes Facility Type Home Health Orders Sent Yes Assessment/Plan Assessment/Plan (1) Non-pressure chronic ulcer of other part of right foot with necrosis of muscle: CODE(S): L97.513 - Non-pressure chronic ulcer of other part of right foot with necrosis of muscle (2) Non-pressure chronic ulcer of other 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: CODE(S): L97.523 - Non-pressure chronic ulcer of other 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 (3) Type 2 diabetes mellitus with foot ulcer: CODE(S): E11.621 - Type 2 diabetes mellitus with foot ulcer; L97.509 - Non-pressure chronic ulcer of other part of unspecified foot with unspecified severity (4) Diabetes mellitus with diabetic polyneuropathy: CODE(S): E11.42 - Type 2 diabetes mellitus with diabetic polyneuropathy (5) PAD (peripheral artery disease): CODE(S): I73.9 - Peripheral vascular disease, unspecified (6) Debility: CODE(S): R53.81 - Other malaise (7) Chronic combined systolic and diastolic CHF (congestive heart failure): CODE(S): I50.42 - Chronic combined systolic (congestive) and diastolic (congestive) heart failure (8) Obesity: CODE(S): E66.9 - Obesity, unspecified PLAN: Plan Patient seen and evaluated She is s/p excision of fifth metatarsal head right foot and left foot, debridement of ulceration to the level of muscle left foot and right foot. DOS 07/14/2024. POD #104 Cicatrix to dorsal aspect of Right and Left foot. No signs of infection. Sites have healed well. Predebridement measurement: Right foot sub 5th met head healed; left foot sub 5th met head 2.4 cm x 1.4 cm x 0.1 cm Ulceration did undergo debridement as noted in the clinical panel above. Healthy bone of left foot was debrided and discarded per policy. Right foot remains healed; postdebridement measurement left foot 2.5 cm x 1.5 cm x 0.5 cm. Judi and DSD applied to site ulceration site, change daily. Sutures placed lateral portion of foot where bone debridement performed. Site dressed with Betadine adaptic, 4x4 gauze, Kerlix, and 4 inch Addy wrap rolled onto the foot. Discussed keeping all dressings clean, dry, and intact to the left foot. Visiting nursing may assist in dressing changes. Her ulceration to right foot remains healed, however left foot demonstrates continued irritation and remains with superficial ulceration with some reduction in size versus her previous visit. At this time we will continue protective weightbearing to right and left foot with the assistance of a surgical shoe. Discussed no barefoot ambulation and to always remain in the surgical shoe. Currently residing at home and her son does continue to check on them daily She has been cleared for HBO therapy. Labs were ordered consisting of CBC with differential, Chem 12, CXR, EKG, prealbumin, awaiting results. Patient will also see Dr. Aj for physical and clearance prior to HBO therapy. LEAS demonstrates mild arterial disease. Oral antibiotics completed 6 weeks total prior to surgery. Laboratory results performed 06/22/2024 demonstrate: WBC 7.4, Hgb 9.7, Hct 32.8, platelet 247, ESR 38, sodium 140, potassium 4.2, chloride 111, Carbon dioxide 26.0, BUN 42, Cr 1.67, HgbA1c 6.5%, AST 20, ALT 24, alkaline phosphatase 111, CRP 18.6, prealbumin 10. CRX was also completed 06/22/2024. Discussed continued elevation of lower extremities at times of rest to aid in edema control. Discussed rewrapping of Addy wrap's or utilize Tubigrip compression for continued edema control. Discussed continued adequate protein intake to aid in wound healing. Champ supplementation was also recommended. Discussed continued reduction of A1c to aid in wound healing. Recent A1c was 6% on 07/14/2024. Discussed daily foot checks as patient is diabetic and insensate to the foot. Discussed not ambulating barefoot and encouraged shoes to be worn once healed. Discussed overall she needs to reduce ambulation and rest with feet elevated to allow healing. I do feel she ambulates on the lateral aspect of foot due to unsteady gait and obesity which lead to her bilateral ulcerations. Discussed signs and symptoms of infection. Patient and her son were instructed if there is progressive redness about the wound or top of the foot that moves up the leg, red streaking up the leg, purulent drainage from the wound site, increasing foul odor from the wound, or if she experiences fever greater than 101 degree accompanied by nausea, vomiting, chills that these are signs of a progressing infection and she should report to the ED for further evaluation and IV antibiotics. She is understanding of this. The following work up and care recommendations were made: Dressing: Judi and dry sterile dressing, change daily. Betadine Adaptic, 4 x 4 gauze, ABD, Kerlix, and 4 inch Addy wrap rolled onto the foot. Wash: Do not get site wet Tissue growth optimization: Judi Offload: Surgical shoe to right and left foot with fifth metatarsal head cut out. Vascular: DP and PT pulses weakly palpable. LEAS demonstrates mild arterial disease bilateral. Edema: Bilateral lower extremity edema secondary to CHF. Continued elevation of lower extremities. Will aid in edema control via Addy wrap. Recommend continued Lasix. Infection: Underwent bilateral fifth metatarsal head excision on 07/14/2024. Right fifth metatarsal head pathology demonstrates acute osteomyelitis, left fifth metatarsal head pathology demonstrates acute inflammatory reactive changes but negative for osteomyelitis. Pain: May take [id number] Tylenol for any discomfort however patient does have a insensate foot secondary to diabetic peripheral polyneuropathy. Host factors: DM type II with peripheral polyneuropathy, CHF, lower extremity edema, CKD, HTN, advanced age, obesity, PVD. She did see Dr. Aj for HBO clearance and had been cleared, but with ulcerations healing post-surgical intervention we will refrain from performing HBO dives. I answered all the patient's questions. Will return to the wound care center in 1 week for continued postoperative care and continued debridement of ulceration sites. She is to call sooner for any questions or concerns.
== END 2024-10-27 23:59 | disposition home or self-care (01) ==
LOC: WC 08:45
PROVIDERS: PCP Family Medicine; Referring Provider Student in an Organized Health Care Education/Training Program; Visit Provider Student in an Organized Health Care Education/Training Program
DX: E11.621 Type 2 diabetes mellitus with foot ulcer (principal); L97.521 Non-pressure chronic ulcer of other part of left foot limited to breakdown of skin; L97.522 Non-pressure chronic ulcer of other part of left foot with fat layer exposed; I50.42 Chronic combined systolic (congestive) and diastolic (congestive) heart failure; Z68.41 Body mass index [BMI] 40.0-44.9, adult; E11.51 Type 2 diabetes mellitus with diabetic peripheral angiopathy without gangrene; E11.42 Type 2 diabetes mellitus with diabetic polyneuropathy; E66.9 Obesity, unspecified; R60.0 Localized edema
CPT/HCPCS: 11042; 11044; 97597; 99213; G0463

== ENCOUNTER 2024-11-23 09:00 | Outpatient (RCR) | payer MEDICARE, MEDICAID, SELFPAY ==
[2024-10-28 00:57] VITALS: BP 113/50; PULSE 69; RESP 22; TEMP 36.4; BMI 42.7
--- NOTE | 2024-11-02 08:35 | PN.PCM_ITS ---
History of Present Illness Date of Service: 11/02/24 Chief Complaint: Plantar lateral fifth metatarsal head ulceration right foot History of Wound: Ms. Myers is a 74-year-old currently being seen at the wound center and managed for diabetic foot ulcer. Due to stage of diabetic foot ulcer, consideration is for hyperbaric oxygen therapy to aid in healing. No prior history of hyperbaric oxygen therapy. No current tobacco use, quit in 1989. History of diabetes mellitus type 2 and most recent A1c said to be about 6.5. Also history of congestive heart failure, last ejection fraction at 35%. Follows up routinely with cardiology. She reports shortness of breath even at rest. No significant history of seizures or claustrophobia. Also denies any significant visual or auditory concerns. History of recurrent ear infections as a child. She feels well otherwise. Subjective Subjective This is a 74-year-old female who follows up today for continued care of a subfifth metatarsal head ulceration of the right and left foot. Underwent surgical intervention on 07/14/2024 for bilateral fifth metatarsal head excisions with debridement of the ulceration sites of the right and left foot. Additional debridement of bone was performed last week, 10/26/24 on the left foot. Continues doing well since surgical intervention. She is accompanied by her son today. Son states she has now been wearing the surgical shoe to left foot. Right foot remains healed, Left foot continues superficial ulceration to which he and her continue daily dressing changes. Glucose 60 mg/dL. She denies constitutional symptoms. Denies further complaints. Objective Data Objective Data Vital Signs: Vital Signs Temp Pulse Resp BP 97.6 F L 69 22 H 113/50 L 10/28/24 00:57 10/28/24 00:57 10/28/24 00:57 10/28/24 00:57 Weight: 120.202 kg Body Mass Index (BMI) 42.7 Physical Exam Const alert, oriented x3 and no apparent distress General Appearance: cooperative HEENT normocephalic Eyes General Eye: normal appearance of both eyes Neck General: normal visual inspection Lymph Lymphatic: no lymphadenopathy noted and no lymphedema noted Resp normal respiratory effort Cardio regular rate and regular rhythm Extremity no calf tenderness Extremity Narrative: Bilateral lower extremity: Vascular: DP and PT pulses weakly palpable. CFT less than 5 seconds to the digits. Temperature gradient is normal. Hair growth is absent to digits. Neurologic: Light touch sensation diminished. Gross sensation intact. Protective sensation absent. Musculoskeletal: Muscle strength 4 of 5 due to generalized weakness as patient does not ambulate much. Decreased range of motion of the ankle joint dorsiflexion with the knee extended without pain or crepitus. Decreased range of motion of the STJ, MTJ, and first MTPJ without pain or crepitus. No pain to palpation around ulcerative site subfifth metatarsal head. Dermatologic: Full-thickness ulceration to the plantar lateral fifth metatarsal head of the right foot remains healed. She is s/p excision of fifth metatarsal head right foot with healed ulceration. Cicatrix dorsal 5th metatarsal. No signs of infection Left foot demonstrates ulceration subfifth metatarsal head with healthy granular layer. She is s/p excision of fifth metatarsal head left foot. Cicatrix to dorsal foot. Ulceration site demonstrates no palpable fluctuance/bogginess, no purulent drainage, no malodor, no soft tissue crepitus. Bilateral lower extremities demonstrates edema with chronic venous stasis changes and dermatitis. Skin no rashes or lesions noted and skin turgor normal Neuro moves all extremities Debridement Note Debridement Note Wound debrided: Subfifth metatarsal head left foot Laterality: Left Wound Grade/Stage: Wyatt stage III Type of Debridement: Excisional debridement Anesthesia Used: 5% Lidocaine Gel Depth: Down to and including healthy tissue and in the subcutaneous layer Percentage of wound debrided: 100 Instrument Used: #15 blade Tissue Removed: Fibrous, devitalized subcutaneous, biofilm, slough Severity: Fat Layer Exposed Amount of bleeding with debridement: Mild Bleeding Controlled with: Compression and gauze Patient tolerated procedure: Patient tolerated procedure well Assessment/Plan Assessment/Plan (1) Non-pressure chronic ulcer of other 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: CODE(S): L97.523 - Non-pressure chronic ulcer of other 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 (2) Diabetes mellitus with diabetic polyneuropathy: CODE(S): E11.42 - Type 2 diabetes mellitus with diabetic polyneuropathy (3) Type 2 diabetes mellitus with foot ulcer: CODE(S): E11.621 - Type 2 diabetes mellitus with foot ulcer; L97.509 - Non-pressure chronic ulcer of other part of unspecified foot with unspecified severity (4) Chronic combined systolic and diastolic CHF (congestive heart failure): CODE(S): I50.42 - Chronic combined systolic (congestive) and diastolic (congestive) heart failure (5) Debility: CODE(S): R53.81 - Other malaise (6) PAD (peripheral artery disease): CODE(S): I73.9 - Peripheral vascular disease, unspecified (7) Essential hypertension: CODE(S): I10 - Essential (primary) hypertension (8) Obesity: CODE(S): E66.9 - Obesity, unspecified PLAN: Plan Patient seen and evaluated She is s/p excision of fifth metatarsal head right foot and left foot, debridement of ulceration to the level of muscle left foot and right foot. DOS 07/14/2024. POD #111 Currently just over 3 months out from intervention. Cicatrix to dorsal aspect of Right and Left foot. No signs of infection. Sites have healed well. Predebridement measurement: Right foot sub 5th met head healed; left foot sub 5th met head 0.7 cm x 0.9 cm x 0.1 cm Ulceration did undergo debridement as noted in the clinical panel above. Right foot remains healed; postdebridement measurement left foot 0.8 cm x 1.0 cm x 0.1 cm. Judi and DSD applied to site ulceration site, change daily. Sutures intact lateral portion of foot where bone debridement performed. No signs of infection. Site dressed with Betadine adaptic, 4x4 gauze, Kerlix, and 4 inch Addy wrap rolled onto the foot. Discussed keeping all dressings clean, dry, and intact to the left foot. Visiting nursing may assist in dressing changes. Her ulceration to right foot remains healed. Left foot demonstrates improvement following additional debridement of bone and is decreasing in size versus prev ious visit. At this time we will continue protective weightbearing to right and left foot with the assistance of a surgical shoe. Discussed no barefoot ambulation and to always remain in the surgical shoe. Currently residing at home and her son does continue to check on them daily Discussed continued elevation of lower extremities at times of rest to aid in edema control. Discussed rewrapping of Addy wrap's or utilize Tubigrip compression for continued edema control. Discussed continued adequate protein intake to aid in wound healing. Champ supplementation was also recommended. Discussed continued reduction of A1c to aid in wound healing. Recent A1c was 6% on 07/14/2024. Discussed daily foot checks as patient is diabetic and insensate to the foot. Discussed not ambulating barefoot and encouraged shoes to be worn once healed. Discussed overall she needs to reduce ambulation and rest with feet elevated to allow healing. I do feel she ambulates on the lateral aspect of foot due to unsteady gait and obesity which lead to her bilateral ulcerations. Discussed signs and symptoms of infection. Patient and her son were instructed if there is progressive redness about the wound or top of the foot that moves up the leg, red streaking up the leg, purulent drainage from the wound site, increasing foul odor from the wound, or if she experiences fever greater than 101 degree accompanied by nausea, vomiting, chills that these are signs of a progressing infection and she should report to the ED for further evaluation and IV antibiotics. She is understanding of this. The following work up and care recommendations were made: Dressing: Judi and dry sterile dressing, change daily. Betadine Adaptic, 4 x 4 gauze, ABD, Kerlix, and 4 inch Addy wrap rolled onto the foot. Wash: Do not get site wet Tissue growth optimization: Judi Offload: Surgical shoe to right and left foot with fifth metatarsal head cut out. Vascular: DP and PT pulses weakly palpable. LEAS demonstrates mild arterial disease bilateral. Edema: Bilateral lower extremity edema secondary to CHF. Continued elevation of lower extremities. Will aid in edema control via Addy wrap. Recommend continued Lasix. Infection: Underwent bilateral fifth metatarsal head excision on 07/14/2024. Right fifth metatarsal head pathology demonstrates acute osteomyelitis, left fifth metatarsal head pathology demonstrates acute inflammatory reactive changes but negative for osteomyelitis. Pain: May take [id number] Tylenol for any discomfort however patient does have a insensate foot secondary to diabetic peripheral polyneuropathy. Host factors: DM type II with peripheral polyneuropathy, CHF, lower extremity edema, CKD, HTN, advanced age, obesity, PVD. I answered all the patient's questions. Will return to the wound care center in 1 week for continued postoperative care and continued debridement of ulceration sites. She is to call sooner for any questions or concerns.
[2024-11-02 08:36] VITALS: BP 136/43; PULSE 75; RESP 20; TEMP 35.9; BMI 42.7
--- NOTE | 2024-11-03 12:25 | WC ---
PHOTO 11/02/24 LEFT PLANTAR FOOT
[2024-11-09 08:42] VITALS: BP 145/63; PULSE 74; RESP 18; BMI 42.7
--- NOTE | 2024-11-09 09:20 | PN.PCM_ITS ---
History of Present Illness Date of Service: 11/09/24 Chief Complaint: Plantar lateral fifth metatarsal head ulceration right foot History of Wound: Ms. Myers is a 74-year-old currently being seen at the wound center and managed for diabetic foot ulcer. Due to stage of diabetic foot ulcer, consideration is for hyperbaric oxygen therapy to aid in healing. No prior history of hyperbaric oxygen therapy. No current tobacco use, quit in 1989. History of diabetes mellitus type 2 and most recent A1c said to be about 6.5. Also history of congestive heart failure, last ejection fraction at 35%. Follows up routinely with cardiology. She reports shortness of breath even at rest. No significant history of seizures or claustrophobia. Also denies any significant visual or auditory concerns. History of recurrent ear infections as a child. She feels well otherwise. Subjective Subjective This is a 74-year-old female who follows up today for continued care of a subfifth metatarsal head ulceration of the right and left foot. Underwent surgical intervention on 07/14/2024 for bilateral fifth metatarsal head excisions with debridement of the ulceration sites of the right and left foot. Additional debridement of bone was performed 10/26/24 on the left foot. Continues doing well since surgical intervention with decreasing ulceration size. She is accompanied by her son today. Continues offloading in bilateral surgical shoe. Right foot remains healed, Left foot continues superficial ulceration with decreasing size to which he and her continue daily dressing changes. Glucose 64 mg/dL. She denies constitutional symptoms. Denies further complaints. Objective Data Objective Data Vital Signs: Vital Signs Temp Pulse Resp BP O2 Del Method 96.7 F L 74 18 145/63 H Room Air 11/02/24 08:36 11/09/24 08:42 11/09/24 08:42 11/09/24 08:42 11/09/24 08:42 Oxygen Delivery Method Room Air Weight: 120.202 kg Body Mass Index (BMI) 42.7 Physical Exam Const alert, oriented x3 and no apparent distress General Appearance: cooperative HEENT normocephalic Eyes General Eye: normal appearance of both eyes Neck General: normal visual inspection Lymph Lymphatic: no lymphadenopathy noted and no lymphedema noted Resp normal respiratory effort Cardio regular rate and regular rhythm Extremity no calf tenderness Extremity Narrative: Bilateral lower extremity: Vascular: DP and PT pulses weakly palpable. CFT less than 5 seconds to the digits. Temperature gradient is normal. Hair growth is absent to digits. Neurologic: Light touch sensation diminished. Gross sensation intact. Protective sensation absent. Musculoskeletal: Muscle strength 4 of 5 due to generalized weakness as patient does not ambulate much. Decreased range of motion of the ankle joint dorsiflexion with the knee extended without pain or crepitus. Decreased range of motion of the STJ, MTJ, and first MTPJ without pain or crepitus. No pain to palpation around ulcerative site subfifth metatarsal head. Dermatologic: Full-thickness ulceration to the plantar lateral fifth metatarsal head of the right foot remains healed. She is s/p excision of fifth metatarsal head right foot with healed ulceration. Cicatrix dorsal 5th metatarsal. No signs of infection Left foot demonstrates ulceration subfifth metatarsal head with healthy granular layer. She is s/p excision of fifth metatarsal head left foot. Cicatrix to dorsal foot. Ulceration site demonstrates no palpable fluctuance/bogginess, no purulent drainage, no malodor, no soft tissue crepitus. Bilateral lower extremities demonstrates edema with chronic venous stasis changes and dermatitis. Skin no rashes or lesions noted and skin turgor normal Neuro moves all extremities Debridement Note Debridement Note Wound debrided: Subfifth metatarsal head left foot Laterality: Left Wound Grade/Stage: Wyatt stage III Type of Debridement: Excisional debridement Anesthesia Used: 5% Lidocaine Gel Depth: Down to and including healthy tissue and in the subcutaneous layer Percentage of wound debrided: 100 Instrument Used: #15 blade Tissue Removed: Fibrous, devitalized subcutaneous, biofilm, slough Severity: Fat Layer Exposed Amount of bleeding with debridement: Mild Bleeding Controlled with: Compression and gauze Patient tolerated procedure: Patient tolerated procedure well Post-Debridement Measurements and Additional Note: Post-Debridement Measurements/Treatment - Nurse 1 - General Ulcer Assessment Start: 11/02/24 08:27 Freq: Status: Active Protocol: KAY Activity Type Activity Date Activity User E-sign Co-sign Detail Recorded Client Recorded Date Recorded By Document 11/02/24 08:36 KW [id number] 11/02/24 08:41 KW Document 11/09/24 08:42 [id number] 11/09/24 08:47 11/02/24 11/09/24 08:36 08:42 - Today's Visit Information Type of service Follow-up Visit Follow-up Visit (Physician/PEST CONTROL WORKER (Physician/PEST CONTROL WORKER ) ) Arrival Mode Wheelchair Ambulatory,Cane Transfer Assistance None Accompanied by son Patient Identification Verified (Name & Yes No ) Patient Requires Transmission-Based No Precautions Safety Precautions NA Height and Weight Body Mass Index (BMI) 42.7 42.7 BMI Classification Obese Obese Vital Signs Temperature (97.8 F-99.1 F) 96.7 F L Temperature Source Temporal Temporal Pulse Rate (60-100) 75 74 Pulse Location Monitor Monitor Respiratory Rate (12-18) 20 H 18 Respiratory rate source Observation Observation Oxygen Delivery Method Room Air Room Air Blood Pressure (90/60-120/80) 136/43 H 145/63 H Blood Pressure Mean (mm Hg) 74 90 Source Monitor Monitor Position Semi-Fowlers Sitting Blood Pressure Location Left Forearm Left Arm History Since Last Visit- (Skip if this is Patient's initial visit) Have you changed medications since your No No last visit? Any new allergies or adverse reactions No No Had a fall/change in ADL's that may No No increase risk of falls Signs or symptoms of abuse and/or No No neglect since last visit Have you been in the hospital since your No No last visit? Has dressing in place as prescribed Yes Yes Has compression in place as prescribed Yes Yes Has offloadiing in place as prescribed Yes Yes Experienced any changes in pain level or No No management Left Footwear Surgical Shoe Surgical Shoe with pressure with pressure relief insole relief insole Right Footwear Surgical Shoe with pressure relief insole Pain Scale: 0-10 Numeric Is Patient Pain Free? Yes Yes WC - Nurse 1 - General Ulcer Measurement Start: 11/02/24 08:27 Freq: Status: Active Protocol: Activity Type Activity Date Activity User E-sign Co-sign Detail Recorded Client Recorded Date Recorded By Document 11/02/24 08:36 KW [id number] 11/02/24 08:41 KW Document 11/09/24 08:42 [id number] 11/09/24 08:47 11/02/24 11/09/24 08:36 08:42 Wound Center Nurse 1 2. L plantar foot -Combined with other wound No -Current Size (cm) - Length 1 -Current Size (cm) - Width 1 -Current Size (cm) - Depth 0.1 -Total Square Cm 1 -Date of Last Picture (Recall this 11/09/24 field) -Photo Taken Yes -Exudate Amt Small -Exudate Type Serous -Wound Margin Distinct, Outline Attached -Granulation Amt Large (67-100%) -Granulation Quality [place],Red -Necrosis Amt Small (1-33%) -Necrotic Tissue Type Adherent Slough -Texture (Jaleesa-wound Skin Appearance) Assessed,Callus -Moisture (Jaleesa-wound Skin Appearance) Assessed -Color (Jaleesa-wound Skin Appearance) Assessed -Temperature (Jaleesa-wound Skin No Abnormality Appearance) (Pt Warm) -Tenderness on Palpation (Jaleesa-wound No Skin Appearance) -Ulcer Cleansing Rinsed/ Irrigated with Saline -Foul Odor after Cleansing No -Anesthetic Used 5% Lidocaine Gel -Wound Comment(s) sutures intact Lower Limb Edema Present Yes Left Calf (cm) 45.1 Left Ankle (cm) 28.5 WC - Nurse 2 - General Ulcer CM Notes Start: 11/02/24 08:27 Freq: Status: Active Protocol: Activity Type Activity Date Activity User E-sign Co-sign Detail Recorded Client Recorded Date Recorded By Document 11/02/24 09:14 BMF [id number] 11/02/24 09:21 BMF Edit Result 11/02/24 09:14 BMF (1) [id number] 11/02/24 13:22 BMF Document 11/09/24 09:08 BMF [id number] 11/09/24 09:13 BMF (1) 2. L plantar foot - Correct Patient => Yes - Correct Side, Site, Position => Yes - Correct Procedure => Yes - Procedure Performed => Yes - Type of Procedure => Debridement - Clinical Debridement => Subcutaneous - Tissue Removed => Subcutaneous - Debridement - Subq, 1st 20sq cm => Yes 11/02/24 11/09/24 09:14 09:08 Wound Center Nurse 2 2. L plantar foot -Time 09:15 09:08 -Correct Patient Yes Yes -Correct Side, Site, Position Yes Yes -Correct Procedure Yes Yes -Procedure Performed Yes Yes -Type of Procedure Debridement Debridement -Clinical Debridement Subcutaneous Subcutaneous -Tissue Removed Subcutaneous Subcutaneous -Post Debridement (cm) - Length 0.8 0.5 -Post Debridement (cm) - Width 1 0.5 -Post Debridement (cm) - Depth 0.1 0.1 -Total Square (Post) (cm) 0.8 0.25 -Area of Debridement (cm) - Length 0.8 0.5 -Area of Debridement (cm) - Width 1 0.5 -Total Square (Area) (cm) 0.8 0.25 -Tunneling No No -Undermining/Tunneling No No -Circular Undermining No No -Wound/Ulcer Outcome Not Healed Not Healed -Ulcer Cleansing Rinsed/ Rinsed/ Irrigated with Irrigated with Saline Saline -Foul Odor after Cleansing No No -Bioengineered Tissue No No -Bleeding Controlled with Pressure Pressure -Treatment Response Procedure Procedure Tolerated Well Tolerated Well -Debridement - Subq, 1st 20sq cm Yes Yes Pain Scale: 0-10 Numeric Is Patient Pain Free? Yes Yes - Nurse 3 - General Ulcer D/C NN Start: 11/02/24 08:27 Freq: Status: Active Protocol: Activity Type Activity Date Activity User E-sign Co-sign Detail Recorded Client Recorded Date Recorded By Document 11/02/24 09:42 CP [id number] 11/02/24 09:44 CP 11/02/24 09:42 Wound Care Center Nurse 3 2. L plantar foot -Ulcer Cleansing Rinsed/ Irrigated with Saline -Primary Dressing Applied Promogran Judi Matter -Primary Dressing Covered/Secured with Dry Gauze & Roll Gauze -Promogran Judi Matter 1 -Wound Comment(s) betadine and adaptic to sutures Left -Tubular Bandage Single Layer -Size of Tubigrip Used Size E -Size E ($) 1 Pain Scale: 0-10 Numeric Is Patient Pain Free? Yes - Visit Discharge Discharge Condition Stable Ambulatory Status Wheelchair Transportation Private Auto Clinical Summary of Care Provided Yes Assessment/Plan Assessment/Plan (1) Non-pressure chronic ulcer of other 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: CODE(S): L97.523 - Non-pressure chronic ulcer of other 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 (2) Diabetes mellitus with diabetic polyneuropathy: CODE(S): E11.42 - Type 2 diabetes mellitus with diabetic polyneuropathy (3) Type 2 diabetes mellitus with foot ulcer: CODE(S): E11.621 - Type 2 diabetes mellitus with foot ulcer; L97.509 - Non-pressure chronic ulcer of other part of unspecified foot with unspecified severity (4) Chronic combined systolic and diastolic CHF (congestive heart failure): CODE(S): I50.42 - Chronic combined systolic (congestive) and diastolic (congestive) heart failure (5) Debility: CODE(S): R53.81 - Other malaise (6) PAD (peripheral artery disease): CODE(S): I73.9 - Peripheral vascular disease, unspecified (7) Essential hypertension: CODE(S): I10 - Essential (primary) hypertension (8) Obesity: CODE(S): E66.9 - Obesity, unspecified PLAN: Plan Patient seen and evaluated She is s/p excision of fifth metatarsal head right foot and left foot, debridement of ulceration to the level of muscle left foot and right foot. DOS 07/14/2024. POD #[id number] Currently just over 3 months out from intervention. Cicatrix to dorsal aspect of Right and Left foot. No signs of infection. Sites have healed well. Predebridement measurement: Right foot sub 5th met head healed; left foot sub 5th met head 0.4 cm x 0.4 cm x 0.1 cm Ulceration did undergo debridement as noted in the clinical panel above. Right foot remains healed; postdebridement measurement left foot 0.5 cm x 0.5 cm x 0.1 cm. Judi and DSD applied to site ulceration site, change daily. Sutures intact lateral portion of foot where bone debridement performed. No signs of infection. Site dressed with Betadine adaptic, 4x4 gauze, Kerlix, and 4 inch Addy wrap rolled onto the foot. Discussed keeping all dressings clean, dry, and intact to the left foot. Visiting nursing may assist in dressing changes. Discussed suture removal next week. Her ulceration to right foot remains healed. Left foot demonstrates improvement following additional debridement of bone and is decreasing in size versus previous visit. At this time we will continue protective weightbearing to right and left foot with the assistance of a surgical shoe. Discussed no barefoot ambulation and to always remain in the surgical shoe. Currently residing at home and her son does continue to check on them daily Discussed continued elevation of lower extremities at times of rest to aid in edema control. Discussed rewrapping of Addy wrap's or utilize Tubigrip compression for continued edema control. Discussed continued adequate protein intake to aid in wound healing. Champ supplementation was also recommended. Discussed continued reduction of A1c to aid in wound healing. Recent A1c was 6% on 07/14/2024. Discussed daily foot checks as patient is diabetic and insensate to the foot. Discussed not ambulating barefoot and encouraged shoes to be worn once healed. Discussed overall she needs to reduce ambulation and rest with feet elevated to allow healing. I do feel she ambulates on the lateral aspect of foot due to unsteady gait and obesity which lead to her bilateral ulcerations. Discussed signs and symptoms of infection. Patient and her son were instructed if there is progressive redness about the wound or top of the foot that moves up the leg, red streaking up the leg, purulent drainage from the wound site, increasing foul odor from the wound, or if she experiences fever greater than 101 degree accompanied by nausea, vomiting, chills that these are signs of a progressing infection and she should report to the ED for further evaluation and IV antibiotics. She is understanding of this. The following work up and care recommendations were made: Dressing: Judi and dry sterile dressing, change daily. Betadine Adaptic, 4 x 4 gauze, ABD, Kerlix, and 4 inch Addy wrap rolled onto the foot. Wash: Do not get site wet Tissue growth optimization: Judi Offload: Surgical shoe to right and left foot with fifth metatarsal head cut out. Vascular: DP and PT pulses weakly palpable. LEAS demonstrates mild arterial disease bilateral. Edema: Bilateral lower extremity edema secondary to CHF. Continued elevation of lower extremities. Will aid in edema control via Addy wrap. Recommend continued Lasix. Infection: Underwent bilateral fifth metatarsal head excision on 07/14/2024. Right fifth metatarsal head pathology demonstrates acute osteomyelitis, left fifth metatarsal head pathology demonstrates acute inflammatory reactive changes but negative for osteomyelitis. Pain: May take [id number] Tylenol for any discomfort however patient does have a insensate foot secondary to diabetic peripheral polyneuropathy. Host factors: DM type II with peripheral polyneuropathy, CHF, lower extremity edema, CKD, HTN, advanced age, obesity, PVD. I answered all the patient's questions. Will return to the wound care center in 1 week for continued postoperative care and continued debridement of ulceration sites. She is to call sooner for any questions or concerns.
--- NOTE | 2024-11-10 09:29 | WC ---
PHOTO 11/09/24 LATERAL LEFT FOOT
[2024-11-16 08:48] VITALS: BP 146/53; PULSE 71; RESP 20; TEMP 36.1; BMI 42.7
--- NOTE | 2024-11-16 10:08 | PN.PCM_ITS ---
History of Present Illness Date of Service: 11/16/24 Chief Complaint: Plantar lateral fifth metatarsal head ulceration right foot History of Wound: Ms. Myers is a 74-year-old currently being seen at the wound center and managed for diabetic foot ulcer. Due to stage of diabetic foot ulcer, consideration is for hyperbaric oxygen therapy to aid in healing. No prior history of hyperbaric oxygen therapy. No current tobacco use, quit in 1989. History of diabetes mellitus type 2 and most recent A1c said to be about 6.5. Also history of congestive heart failure, last ejection fraction at 35%. Follows up routinely with cardiology. She reports shortness of breath even at rest. No significant history of seizures or claustrophobia. Also denies any significant visual or auditory concerns. History of recurrent ear infections as a child. She feels well otherwise. Subjective Subjective This is a 74-year-old female who follows up today for continued care of a subfifth metatarsal head ulceration of the right and left foot. Underwent surgical intervention on 07/14/2024 for bilateral fifth metatarsal head excisions with debridement of the ulceration sites of the right and left foot. Additional debridement of bone was performed 10/26/24 on the left foot. Continues doing well since surgical intervention with decreasing ulceration size. She is accompanied by her son today. Continues offloading in bilateral surgical shoe. Right foot remains healed, Left foot continues superficial ulceration with decreasing size to which he and her continue daily dressing changes. She reports this is now closed. Glucose 68 mg/dL. She denies constitutional symptoms. Denies further complaints. Objective Data Objective Data Vital Signs: Vital Signs Temp Pulse Resp BP O2 Del Method 97.0 F L 71 20 H 146/53 H Room Air 11/16/24 08:48 11/16/24 08:48 11/16/24 08:48 11/16/24 08:48 11/16/24 08:48 Oxygen Delivery Method Room Air Weight: 120.202 kg Body Mass Index (BMI) 42.7 Physical Exam Const alert, oriented x3 and no apparent distress General Appearance: cooperative HEENT normocephalic Eyes General Eye: normal appearance of both eyes Neck General: normal visual inspection Lymph Lymphatic: no lymphadenopathy noted and no lymphedema noted Resp normal respiratory effort Cardio regular rate and regular rhythm Extremity no calf tenderness Extremity Narrative: Bilateral lower extremity: Vascular: DP and PT pulses weakly palpable. CFT less than 5 seconds to the digits. Temperature gradient is normal. Hair growth is absent to digits. Neurologic: Light touch sensation diminished. Gross sensation intact. Protective sensation absent. Musculoskeletal: Muscle strength 4 of 5 due to generalized weakness as patient does not ambulate much. Decreased range of motion of the ankle joint dorsiflexion with the knee extended without pain or crepitus. Decreased range of motion of the STJ, MTJ, and first MTPJ without pain or crepitus. No pain to palpation around ulcerative site subfifth metatarsal head. Dermatologic: Full-thickness ulceration to the plantar lateral fifth metatarsal head of the right foot remains healed. She is s/p excision of fifth metatarsal head right foot with healed ulceration. Cicatrix dorsal 5th metatarsal. No signs of infection Left foot demonstrates ulceration subfifth metatarsal head with with newly epithelialized skin. She is s/p excision of fifth metatarsal head left foot. Cicatrix to dorsal foot. Ulceration site demonstrates no palpable fluctuance/bogginess, no purulent drainage, no malodor, no soft tissue crepitus. Bilateral lower extremities demonstrates edema with chronic venous stasis changes and dermatitis. Skin no rashes or lesions noted and skin turgor normal Neuro moves all extremities Debridement Note Debridement Note No debridement was completed: No debridement was completed today Post-Debridement Measurements and Additional Note: Post-Debridement Measurements/Treatment - Nurse 1 - General Ulcer Assessment Start: 11/02/24 08:27 Freq: Status: Active Protocol: WC.LOWHAZEL Activity Type Activity Date Activity User E-sign Co-sign Detail Recorded Client Recorded Date Recorded By Document 11/02/24 08:36 [id number] 11/02/24 08:41 KW Document 11/09/24 08:42 [id number] 11/09/24 08:47 Document 11/16/24 08:48 [id number] 11/16/24 08:58 11/02/24 11/09/24 11/16/24 08:36 08:42 08:48 - Today's Visit Information Type of service Follow-up Visit Follow-up Visit Follow-up Visit (Physician/KISS MACHINE OPERATOR (Physician/KISS MACHINE OPERATOR (Physician/KISS MACHINE OPERATOR ) ) ) Arrival Mode Wheelchair Ambulatory,Cane Ambulatory, Wheelchair Transfer Assistance None None Accompanied by son Patient Identification Verified (Name & Yes No Yes ) Patient Requires Transmission-Based No No Precautions Safety Precautions NA Height and Weight Body Mass Index (BMI) 42.7 42.7 42.7 BMI Classification Obese Obese Obese Vital Signs Temperature (97.8 F-99.1 F) 96.7 F L 97.0 F L Temperature Source Temporal Temporal Temporal Pulse Rate (60-100) 75 74 71 Pulse Location Monitor Monitor Monitor Respiratory Rate (12-18) 20 H 18 20 H Respiratory rate source Observation Observation Observation Oxygen Delivery Method Room Air Room Air Room Air Blood Pressure (90/60-120/80) 136/43 H 145/63 H 146/53 H Blood Pressure Mean (mm Hg) 74 90 84 Source Monitor Monitor Monitor Position Semi-Fowlers Sitting Semi-Fowlers Blood Pressure Location Left Forearm Left Arm Right Arm History Since Last Visit- (Skip if this is Patient's initial visit) Have you changed medications since your No No No last visit? Any new allergies or adverse reactions No No No Had a fall/change in ADL's that may No No No increase risk of falls Signs or symptoms of abuse and/or No No No neglect since last visit Have you been in the hospital since your No No No last visit? Has dressing in place as prescribed Yes Yes Yes Has compression in place as prescribed Yes Yes Yes Has offloadiing in place as prescribed Yes Yes Yes Experienced any changes in pain level or No No No management Left Footwear Surgical Shoe Surgical Shoe Surgical Shoe with pressure with pressure with pressure relief insole relief insole relief insole Right Footwear Surgical Shoe Surgical Shoe with pressure with pressure relief insole relief insole Pain Scale: 0-10 Numeric Is Patient Pain Free? Yes Yes Yes WC - Nurse 1 - General Ulcer Measurement Start: 11/02/24 08:27 Freq: Status: Active Protocol: Activity Type Activity Date Activity User E-sign Co-sign Detail Recorded Client Recorded Date Recorded By Document 11/02/24 08:36 KW [id number] 11/02/24 08:41 KW Document 11/09/24 08:42 GM [id number] 11/09/24 08:47 GM Document 11/16/24 08:48 GM [id number] 11/16/24 08:58 GM 11/02/24 11/09/24 11/16/24 08:36 08:42 08:48 Wound Center Nurse 1 2. L plantar foot -Combined with other wound No -Current Size (cm) - Length 1 0.1 -Current Size (cm) - Width 1 0.1 -Current Size (cm) - Depth 0.1 0.1 -Total Square Cm 1 0.01 -Date of Last Picture (Recall this 11/09/24 field) -Photo Taken Yes No -Exudate Amt Small None Present -Exudate Type Serous -Wound Margin Distinct, Distinct, Outline Outline Attached Attached -Granulation Amt Large (67-100%) -Granulation Quality [place],Red -Necrosis Amt Small (1-33%) -Necrotic Tissue Type Adherent Slough -Texture (Jaleesa-wound Skin Appearance) Assessed,Callus -Moisture (Jaleesa-wound Skin Appearance) Assessed -Color (Jaleesa-wound Skin Appearance) Assessed -Temperature (Jaleesa-wound Skin No Abnormality Appearance) (Pt Warm) -Tenderness on Palpation (Jaleesa-wound No Skin Appearance) -Ulcer Cleansing Rinsed/ Soap and Water Irrigated with Saline -Foul Odor after Cleansing No No -Anesthetic Used 5% Lidocaine Gel -Wound Comment(s) sutures intact sutures are intact Lower Limb Edema Present Yes Left Calf (cm) 45.1 42.3 Left Ankle (cm) 28.5 28.7 WC - Nurse 2 - General Ulcer CM Notes Start: 11/02/24 08:27 Freq: Status: Active Protocol: Activity Type Activity Date Activity User E-sign Co-sign Detail Recorded Client Recorded Date Recorded By Document 11/02/24 09:14 BMF [id number] 11/02/24 09:21 BMF Edit Result 11/02/24 09:14 BMF (1) [id number] 11/02/24 13:22 BMF Document 11/09/24 09:08 BMF [id number] 11/09/24 09:13 BMF Document 11/16/24 09:44 BMF [id number] 11/16/24 09:51 BMF (1) 2. L plantar foot - Correct Patient => Yes - Correct Side, Site, Position => Yes - Correct Procedure => Yes - Procedure Performed => Yes - Type of Procedure => Debridement - Clinical Debridement => Subcutaneous - Tissue Removed => Subcutaneous - Debridement - Subq, 1st 20sq cm => Yes 11/02/24 11/09/24 11/16/24 09:14 09:08 09:44 Wound Center Nurse 2 2. L plantar foot -Time 09:15 09:08 09:45 -Correct Patient Yes Yes -Correct Side, Site, Position Yes Yes -Correct Procedure Yes Yes -Procedure Performed Yes Yes -Type of Procedure Debridement Debridement -Clinical Debridement Subcutaneous Subcutaneous -Tissue Removed Subcutaneous Subcutaneous -Post Debridement (cm) - Length 0.8 0.5 0.1 -Post Debridement (cm) - Width 1 0.5 0.1 -Post Debridement (cm) - Depth 0.1 0.1 0.1 -Total Square (Post) (cm) 0.8 0.25 0.01 -Area of Debridement (cm) - Length 0.8 0.5 0.1 -Area of Debridement (cm) - Width 1 0.5 0.1 -Total Square (Area) (cm) 0.8 0.25 0.01 -Tunneling No No No -Undermining/Tunneling No No No -Circular Undermining No No No -Wound/Ulcer Outcome Not Healed Not Healed -Ulcer Cleansing Rinsed/ Rinsed/ Irrigated with Irrigated with Saline Saline -Foul Odor after Cleansing No No -Bioengineered Tissue No No -Bleeding Controlled with Pressure Pressure NA -Treatment Response Procedure Procedure Procedure Tolerated Well Tolerated Well Tolerated Well -Debridement - Subq, 1st 20sq cm Yes Yes -Wound Comment(s) suture removal Pain Scale: 0-10 Numeric Is Patient Pain Free? Yes Yes Yes - Nurse 3 - General Ulcer D/C NN Start: 11/02/24 08:27 Freq: Status: Active Protocol: Activity Type Activity Date Activity User E-sign Co-sign Detail Recorded Client Recorded Date Recorded By Document 11/02/24 09:42 CP [id number] 11/02/24 09:44 CP Document 11/09/24 09:25 DL [id number] 11/09/24 09:28 DL Document 11/16/24 09:55 [facility] [id number] 11/16/24 09:57 BMF 11/02/24 11/09/24 11/16/24 09:42 09:25 09:55 Wound Care Center Nurse 3 2. L plantar foot -Ulcer Cleansing Rinsed/ Rinsed/ Irrigated with Irrigated with Saline Saline -Foul Odor after Cleansing No -Primary Dressing Applied Promogran Promogran Judi Matter Judi Matter -Other Dressing betadine -Primary Dressing Covered/Secured with Dry Gauze & Dry Gauze & Roll Gauze Roll Gauze, Secured with Tape -Promogran Judi Matter 1 1 -Wound Comment(s) betadine and adaptic to sutures Left -Tubular Bandage Single Layer Single Layer -Size of Tubigrip Used Size E Size E -Size E ($) 1 1 Treatment Response Procedure Tolerated Well Pain Scale: 0-10 Numeric Is Patient Pain Free? Yes Yes Yes WC - Visit Discharge Discharge Condition Stable Stable Stable Ambulatory Status Wheelchair Ambulatory,Cane Wheelchair ,Wheelchair Transportation Private Auto Private Auto Private Auto Accompanied by son Clinical Summary of Care Provided Yes Facility Type Assisted Care Facility Telephoned (if yes, spoke with:) Yes 2. L plantar foot -Primary Dressing Applied Silicone Border Foam 6x6 -Silicone Border Foam 6x6 1 Left -Tubular Bandage Single Layer -Size of Tubigrip Used Size E -Size E ($) 1 Treatment Response Procedure Tolerated Well Assessment/Plan Assessment/Plan (1) Non-pressure chronic ulcer of other 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: CODE(S): L97.523 - Non-pressure chronic ulcer of other 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 (2) Diabetes mellitus with diabetic polyneuropathy: CODE(S): E11.42 - Type 2 diabetes mellitus with diabetic polyneuropathy (3) Type 2 diabetes mellitus with foot ulcer: CODE(S): E11.621 - Type 2 diabetes mellitus with foot ulcer; L97.509 - Non-pressure chronic ulcer of other part of unspecified foot with unspecified severity (4) Chronic combined systolic and diastolic CHF (congestive heart failure): CODE(S): I50.42 - Chronic combined systolic (congestive) and diastolic (congestive) heart failure (5) Debility: CODE(S): R53.81 - Other malaise (6) PAD (peripheral artery disease): CODE(S): I73.9 - Peripheral vascular disease, unspecified (7) Essential hypertension: CODE(S): I10 - Essential (primary) hypertension (8) Obesity: CODE(S): E66.9 - Obesity, unspecified PLAN: Plan Patient seen and evaluated She is s/p excision of fifth metatarsal head right foot and left foot, debridement of ulceration to the level of muscle left foot and right foot. DOS 07/14/2024. POD #125 Currently almost 4 months out from intervention. Cicatrix to dorsal aspect of Right and Left foot. No signs of infection. Sites have healed well. Predebridement measurement: Right foot sub 5th met head healed; left foot sub 5th met head 0.1 cm x 0.1 cm x 0.1 cm Ulceration did not undergo debridement as noted in the clinical panel above. Right foot remains healed; postdebridement measurement left foot 0.1 cm x 0.1 cm x 0.1 cm. With newly epithelialized skin she will pad and protect previous region of ulceration at the subfifth metatarsal head of the left foot. Sutures intact lateral portion of foot where bone debridement performed and were removed today atraumatically. No signs of infection. Her ulceration to right foot remains healed. Left foot demonstrates improvement following additional debridement of bone and is decreasing in size versus previous visit with newly epithelialized skin at site of previous ulceration. At this time we will continue protective weightbearing to right and left foot with the assistance of a surgical shoe. Discussed no barefoot ambulation and to always remain in the surgical shoe. Currently residing at home and her son does continue to check on them daily Discussed continued elevation of lower extremities at times of rest to aid in edema control. Discussed rewrapping of Addy wrap's or utilize Tubigrip compression for continued edema control. Discussed continued adequate protein intake to aid in wound healing. Champ supplementation was also recommended. Discussed continued reduction of A1c to aid in wound healing. Recent A1c was 6% on 07/14/2024. Discussed daily foot checks as patient is diabetic and insensate to the foot. Discussed not ambulating barefoot and encouraged shoes to be worn once healed. Discussed overall she needs to reduce ambulation and rest with feet elevated to allow healing. I do feel she ambulates on the lateral aspect of foot due to unsteady gait and obesity which lead to her bilateral ulcerations. Discussed signs and symptoms of infection. Patient and her son were instructed if there is progressive redness about the wound or top of the foot that moves up the leg, red streaking up the leg, purulent drainage from the wound site, increasing foul odor from the wound, or if she experiences fever greater than 101 degree accompanied by nausea, vomiting, chills that these are signs of a progressing infection and she should report to the ED for further evaluation and IV antibiotics. She is understanding of this. The following work up and care recommendations were made: Dressing: Dry sterile dressing to pad and protect left foot for next 48 hours Wash: Soap and water in 48 hours. Do not soak foot. Tissue growth optimization: None Offload: Surgical shoe to right and left foot with fifth metatarsal head cut out. Vascular: DP and PT pulses weakly palpable. LEAS demonstrates mild arterial disease bilateral. Edema: Bilateral lower extremity edema secondary to CHF. Continued elevation of lower extremities. Will aid in edema control via Addy wrap. Recommend continued Lasix. Infection: Underwent bilateral fifth metatarsal head excision on 07/14/2024. Right fifth metatarsal head pathology demonstrates acute osteomyelitis, left fifth metatarsal head pathology demonstrates acute inflammatory reactive changes but negative for osteomyelitis. Pain: May take [id number] Tylenol for any discomfort however patient does have a insensate foot secondary to diabetic peripheral polyneuropathy. Host factors: DM type II with peripheral polyneuropathy, CHF, lower extremity edema, CKD, HTN, advanced age, obesity, PVD. If all continues healing well with no signs of ulceration she will be discharged from wound care center next week. I answered all the patient's questions. Will return to the wound care center in 1 week for continued postoperative care and continued debridement of ulceration sites. She is to call sooner for any questions or concerns.
[2024-11-23 08:50] VITALS: BP 144/66; PULSE 76; RESP 22; TEMP 36.6; BMI 42.7
--- NOTE | 2024-11-23 10:22 | PCM.WC.PN ---
History of Present Illness Date of Service: 11/23/24 Chief Complaint: Plantar lateral fifth metatarsal head ulceration right foot History of Wound: Ms. Myers is a 74-year-old currently being seen at the wound center and managed for diabetic foot ulcer. Due to stage of diabetic foot ulcer, consideration is for hyperbaric oxygen therapy to aid in healing. No prior history of hyperbaric oxygen therapy. No current tobacco use, quit in 1989. History of diabetes mellitus type 2 and most recent A1c said to be about 6.5. Also history of congestive heart failure, last ejection fraction at 35%. Follows up routinely with cardiology. She reports shortness of breath even at rest. No significant history of seizures or claustrophobia. Also denies any significant visual or auditory concerns. History of recurrent ear infections as a child. She feels well otherwise. Subjective Subjective This is a 74-year-old female who follows up today for continued care of a subfifth metatarsal head ulceration of the right and left foot. Underwent surgical intervention on 07/14/2024 for bilateral fifth metatarsal head excisions with debridement of the ulceration sites of the right and left foot. Additional debridement of bone was performed 10/26/24 on the left foot. Continues doing well since surgical intervention with decreasing ulceration size. She is accompanied by her son today. Continues offloading in bilateral surgical shoe. Right foot remains healed, Left foot son believes is now healed. She reports she is feeling good. Glucose 68 mg/dL. She denies constitutional symptoms. Denies further complaints. Objective Data Objective Data Vital Signs: Vital Signs Temp Pulse Resp BP O2 Del Method 97.9 F 76 22 H 144/66 H Room Air 11/23/24 08:50 11/23/24 08:50 11/23/24 08:50 11/23/24 08:50 11/16/24 08:48 Oxygen Delivery Method Room Air Weight: 120.202 kg Body Mass Index (BMI) 42.7 Physical Exam Const alert, oriented x3 and no apparent distress General Appearance: cooperative HEENT normocephalic Eyes General Eye: normal appearance of both eyes Neck General: normal visual inspection Lymph Lymphatic: no lymphadenopathy noted and no lymphedema noted Resp normal respiratory effort Cardio regular rate and regular rhythm Extremity no calf tenderness Extremity Narrative: Bilateral lower extremity: Vascular: DP and PT pulses weakly palpable. CFT less than 5 seconds to the digits. Temperature gradient is normal. Hair growth is absent to digits. Neurologic: Light touch sensation diminished. Gross sensation intact. Protective sensation absent. Musculoskeletal: Muscle strength 4 of 5 due to generalized weakness as patient does not ambulate much. Decreased range of motion of the ankle joint dorsiflexion with the knee extended without pain or crepitus. Decreased range of motion of the STJ, MTJ, and first MTPJ without pain or crepitus. No pain to palpation around ulcerative site subfifth metatarsal head. Dermatologic: Full-thickness ulceration to the plantar lateral fifth metatarsal head of the right foot remains healed. She is s/p excision of fifth metatarsal head right foot with healed ulceration. Cicatrix dorsal 5th metatarsal. No signs of infection Left foot demonstrates ulceration subfifth metatarsal head is healed. She is s/p excision of fifth metatarsal head left foot. Cicatrix to dorsal foot. No signs of infection. Bilateral lower extremities demonstrates edema with chronic venous stasis changes and dermatitis improving with light compression. Skin no rashes or lesions noted and skin turgor normal Neuro moves all extremities Debridement Note Debridement Note No debridement was completed: No debridement was completed today Post-Debridement Measurements and Additional Note: Post-Debridement Measurements/Treatment - Nurse 1 - General Ulcer Assessment Start: 11/02/24 08:27 Freq: Status: Active Protocol: KAY Activity Type Activity Date Activity User E-sign Co-sign Detail Recorded Client Recorded Date Recorded By Document 11/02/24 08:36 KW [id number] 11/02/24 08:41 KW Document 11/09/24 08:42 GM [id number] 11/09/24 08:47 GM Document 11/16/24 08:48 GM [id number] 11/16/24 08:58 GM Document 11/23/24 08:50 DL [id number] 11/23/24 08:57 DL 11/02/24 11/09/24 11/16/24 08:36 08:42 08:48 - Today's Visit Information Type of service Follow-up Visit Follow-up Visit Follow-up Visit (Physician/THERAPEUTIC RECREATION LEADER (Physician/THERAPEUTIC RECREATION LEADER (Physician/THERAPEUTIC RECREATION LEADER ) ) ) Arrival Mode Wheelchair Ambulatory,Cane Ambulatory, Wheelchair Transfer Assistance None None Transfer Assist (Other) Accompanied by son Patient Identification Verified (Name & Yes No Yes ) Patient Requires Transmission-Based No No Precautions Safety Precautions NA Height and Weight Body Mass Index (BMI) 42.7 42.7 42.7 BMI Classification Obese Obese Obese Vital Signs Temperature (97.8 F-99.1 F) 96.7 F L 97.0 F L Temperature Source Temporal Temporal Temporal Pulse Rate (60-100) 75 74 71 Pulse Location Monitor Monitor Monitor Respiratory Rate (12-18) 20 H 18 20 H Respiratory rate source Observation Observation Observation Oxygen Delivery Method Room Air Room Air Room Air Blood Pressure (90/60-120/80) 136/43 H 145/63 H 146/53 H Blood Pressure Mean (mm Hg) 74 90 84 Source Monitor Monitor Monitor Position Semi-Fowlers Sitting Semi-Fowlers Blood Pressure Location Left Forearm Left Arm Right Arm History Since Last Visit- (Skip if this is Patient's initial visit) Have you changed medications since your No No No last visit? Any new allergies or adverse reactions No No No Had a fall/change in ADL's that may No No No increase risk of falls Signs or symptoms of abuse and/or No No No neglect since last visit Have you been in the hospital since your No No No last visit? Has dressing in place as prescribed Yes Yes Yes Has compression in place as prescribed Yes Yes Yes Has offloadiing in place as prescribed Yes Yes Yes Experienced any changes in pain level or No No No management Left Footwear Surgical Shoe Surgical Shoe Surgical Shoe with pressure with pressure with pressure relief insole relief insole relief insole Right Footwear Surgical Shoe Surgical Shoe with pressure with pressure relief insole relief insole Pain Scale: 0-10 Numeric Is Patient Pain Free? Yes Yes Yes 11/23/24 08:50 WC - Today's Visit Information Type of service Follow-up Visit (Physician/THERAPEUTIC RECREATION LEADER ) Arrival Mode Wheelchair Transfer Assistance Transfer Assist (Other) X2 Accompanied by Patient Identification Verified (Name & Yes ) Patient Requires Transmission-Based No Precautions Safety Precautions Height and Weight Body Mass Index (BMI) 42.7 BMI Classification Obese Vital Signs Temperature (97.8 F-99.1 F) 97.9 F Temperature Source Temporal Pulse Rate (60-100) 76 Pulse Location Monitor Respiratory Rate (12-18) 22 H Respiratory rate source Observation Oxygen Delivery Method Blood Pressure (90/60-120/80) 144/66 H Blood Pressure Mean (mm Hg) 92 Source Monitor Position Blood Pressure Location History Since Last Visit- (Skip if this is Patient's initial visit) Have you changed medications since your No last visit? Any new allergies or adverse reactions No Had a fall/change in ADL's that may No increase risk of falls Signs or symptoms of abuse and/or No neglect since last visit Have you been in the hospital since your No last visit? Has dressing in place as prescribed Yes Has compression in place as prescribed Yes Has offloadiing in place as prescribed Yes Experienced any changes in pain level or No management Left Footwear Surgical Shoe with pressure relief insole Right Footwear Surgical Shoe with pressure relief insole Pain Scale: 0-10 Numeric Is Patient Pain Free? Yes WC - Nurse 1 - General Ulcer Measurement Start: 11/02/24 08:27 Freq: Status: Active Protocol: Activity Type Activity Date Activity User E-sign Co-sign Detail Recorded Client Recorded Date Recorded By Document 11/02/24 08:36 KW [id number] 11/02/24 08:41 KW Document 11/09/24 08:42 GM [id number] 11/09/24 08:47 GM Document 11/16/24 08:48 GM [id number] 11/16/24 08:58 GM Document 11/23/24 08:50 DL [id number] 11/23/24 08:57 DL 11/02/24 11/09/24 11/16/24 08:36 08:42 08:48 Wound Center Nurse 1 2. L plantar foot -Combined with other wound No -Current Size (cm) - Length 1 0.1 -Current Size (cm) - Width 1 0.1 -Current Size (cm) - Depth 0.1 0.1 -Total Square Cm 1 0.01 -Date of Last Picture (Recall this 11/09/24 field) -Photo Taken Yes No -Exudate Amt Small None Present -Exudate Type Serous -Wound Margin Distinct, Distinct, Outline Outline Attached Attached -Granulation Amt Large (67-100%) -Granulation Quality [place],Red -Necrosis Amt Small (1-33%) -Necrotic Tissue Type Adherent Slough -Structure Exposed -Texture (Jaleesa-wound Skin Appearance) Assessed,Callus -Moisture (Jaleesa-wound Skin Appearance) Assessed -Color (Jaleesa-wound Skin Appearance) Assessed -Temperature (Jaleesa-wound Skin No Abnormality Appearance) (Pt Warm) -Tenderness on Palpation (Jaleesa-wound No Skin Appearance) -Ulcer Cleansing Rinsed/ Soap and Water Irrigated with Saline -Foul Odor after Cleansing No No -Anesthetic Used 5% Lidocaine Gel -Wound Comment(s) sutures intact sutures are intact Lower Limb Edema Present Yes Left Calf (cm) 45.1 42.3 Left Ankle (cm) 28.5 28.7 11/23/24 08:50 Wound Center Nurse 1 2. L plantar foot -Combined with other wound -Current Size (cm) - Length 0.1 -Current Size (cm) - Width 0.1 -Current Size (cm) - Depth 0.1 -Total Square Cm 0.01 -Date of Last Picture (Recall this field) -Photo Taken Yes -Exudate Amt None Present -Exudate Type -Wound Margin Distinct, Outline Attached -Granulation Amt Large (67-100%) -Granulation Quality Pale -Necrosis Amt None Present (0 %) -Necrotic Tissue Type -Structure Exposed N/A -Texture (Jaleesa-wound Skin Appearance) Scarring -Moisture (Jaleesa-wound Skin Appearance) Dry/Scaly -Color (Jaleesa-wound Skin Appearance) No Abnormality -Temperature (Jaleesa-wound Skin No Abnormality Appearance) (Pt Warm) -Tenderness on Palpation (Jaleesa-wound No Skin Appearance) -Ulcer Cleansing Soap and Water -Foul Odor after Cleansing No -Anesthetic Used 5% Lidocaine Gel -Wound Comment(s) Lower Limb Edema Present Left Calf (cm) 45.5 Left Ankle (cm) 29 WC - Nurse 2 - General Ulcer CM Notes Start: 11/02/24 08:27 Freq: Status: Active Protocol: Activity Type Activity Date Activity User E-sign Co-sign Detail Recorded Client Recorded Date Recorded By Document 11/02/24 09:14 BMF [id number] 11/02/24 09:21 BMF Edit Result 11/02/24 09:14 BMF (1) [id number] 11/02/24 13:22 BMF Document 11/09/24 09:08 BMF [id number] 11/09/24 09:13 BMF Document 11/16/24 09:44 BMF [id number] 11/16/24 09:51 BMF Document 11/23/24 09:27 BMF [id number] 11/23/24 09:29 BMF (1) 2. L plantar foot - Correct Patient => Yes - Correct Side, Site, Position => Yes - Correct Procedure => Yes - Procedure Performed => Yes - Type of Procedure => Debridement - Clinical Debridement => Subcutaneous - Tissue Removed => Subcutaneous - Debridement - Subq, 20sq cm => Yes 11/02/24 11/09/24 11/16/24 09:14 09:08 09:44 Wound Center Nurse 2 2. L plantar foot -Time 09:15 09:08 09:45 -Correct Patient Yes Yes -Correct Side, Site, Position Yes Yes -Correct Procedure Yes Yes -Procedure Performed Yes Yes -Type of Procedure Debridement Debridement -Clinical Debridement Subcutaneous Subcutaneous -Tissue Removed Subcutaneous Subcutaneous -Post Debridement (cm) - Length 0.8 0.5 0.1 -Post Debridement (cm) - Width 1 0.5 0.1 -Post Debridement (cm) - Depth 0.1 0.1 0.1 -Total Square (Post) (cm) 0.8 0.25 0.01 -Area of Debridement (cm) - Length 0.8 0.5 0.1 -Area of Debridement (cm) - Width 1 0.5 0.1 -Total Square (Area) (cm) 0.8 0.25 0.01 -Tunneling No No No -Undermining/Tunneling No No No -Circular Undermining No No No -Wound/Ulcer Outcome Not Healed Not Healed -Ulcer Cleansing Rinsed/ Rinsed/ Irrigated with Irrigated with Saline Saline -Foul Odor after Cleansing No No -Bioengineered Tissue No No -Bleeding Controlled with Pressure Pressure NA -Treatment Response Procedure Procedure Procedure Tolerated Well Tolerated Well Tolerated Well -Debridement - Subq, 20sq cm Yes Yes -Wound Comment(s) suture removal Pain Scale: 0-10 Numeric Is Patient Pain Free? Yes Yes Yes 11/23/24 09:27 Wound Center Nurse 2 2. L plantar foot -Time 09:28 -Correct Patient -Correct Side, Site, Position -Correct Procedure -Procedure Performed -Type of Procedure -Clinical Debridement -Tissue Removed -Post Debridement (cm) - Length 0 -Post Debridement (cm) - Width 0 -Post Debridement (cm) - Depth 0 -Total Square (Post) (cm) 0 -Area of Debridement (cm) - Length 0 -Area of Debridement (cm) - Width 0 -Total Square (Area) (cm) 0 -Tunneling -Undermining/Tunneling -Circular Undermining -Wound/Ulcer Outcome Healed- Epithelialized -Ulcer Cleansing -Foul Odor after Cleansing -Bioengineered Tissue -Bleeding Controlled with NA -Treatment Response -Debridement - Subq, 1st 20sq cm -Wound Comment(s) Pain Scale: 0-10 Numeric Is Patient Pain Free? Yes - Nurse 3 - General Ulcer D/C NN Start: 11/02/24 08:27 Freq: Status: Active Protocol: Activity Type Activity Date Activity User E-sign Co-sign Detail Recorded Client Recorded Date Recorded By Document 11/02/24 09:42 CP [id number] 11/02/24 09:44 CP Document 11/09/24 09:25 DL [id number] 11/09/24 09:28 DL Document 11/16/24 09:55 BMF [id number] 11/16/24 09:57 BMF Document 11/23/24 09:40 BMF [id number] 11/23/24 09:41 BMF 11/02/24 11/09/24 11/16/24 09:42 09:25 09:55 Wound Care Center Nurse 3 2. L plantar foot -Ulcer Cleansing Rinsed/ Rinsed/ Irrigated with Irrigated with Saline Saline -Foul Odor after Cleansing No -Primary Dressing Applied Promogran Promogran Judi Matter Judi Matter -Other Dressing betadine -Primary Dressing Covered/Secured with Dry Gauze & Dry Gauze & Roll Gauze Roll Gauze, Secured with Tape -Promogran Judi Matter 1 1 -Wound Comment(s) betadine and adaptic to sutures Left -Tubular Bandage Single Layer Single Layer -Size of Tubigrip Used Size E Size E -Size E ($) 1 1 Treatment Response Procedure Tolerated Well Pain Scale: 0-10 Numeric Is Patient Pain Free? Yes Yes Yes WC - Visit Discharge Discharge Condition Stable Stable Stable Ambulatory Status Wheelchair Ambulatory,Cane Wheelchair ,Wheelchair Transportation Private Auto Private Auto Private Auto Accompanied by son Clinical Summary of Care Provided Yes Facility Type [facility] [employer] [facility] Care Facility Telephoned (if yes, spoke with:) Yes 2. L plantar foot -Primary Dressing Applied Silicone Border Foam 6x6 -Silicone Border Foam 6x6 1 Left -Tubular Bandage Single Layer -Size of Tubigrip Used Size E -Size E ($) 1 taurus -Tubular Bandage -Size of Tubigrip Used -Size E ($) Treatment Response Procedure Tolerated Well 11/23/24 09:40 Wound Care Center Nurse 3 2. L plantar foot -Ulcer Cleansing -Foul Odor after Cleansing -Primary Dressing Applied -Other Dressing -Primary Dressing Covered/Secured with -Promogran Judi Matter -Wound Comment(s) Left -Tubular Bandage -Size of Tubigrip Used -Size E ($) Treatment Response Pain Scale: 0-10 Numeric Is Patient Pain Free? Yes WC - Visit Discharge Discharge Condition Stable Ambulatory Status Wheelchair Transportation Private Auto Accompanied by SON AND Clinical Summary of Care Provided Facility Type Telephoned (if yes, spoke with:) 2. L plantar foot -Primary Dressing Applied -Silicone Border Foam 6x6 Left -Tubular Bandage -Size of Tubigrip Used -Size E ($) taurus -Tubular Bandage Single Layer -Size of Tubigrip Used Size E -Size E ($) 2 Treatment Response Procedure Tolerated Well Assessment/Plan Assessment/Plan (1) Non-pressure chronic ulcer of other 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: CODE(S): L97.523 - Non-pressure chronic ulcer of other 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 (2) Diabetes mellitus with diabetic polyneuropathy: CODE(S): E11.42 - Type 2 diabetes mellitus with diabetic polyneuropathy (3) Type 2 diabetes mellitus with foot ulcer: CODE(S): E11.621 - Type 2 diabetes mellitus with foot ulcer; L97.509 - Non-pressure chronic ulcer of other part of unspecified foot with unspecified severity (4) Chronic combined systolic and diastolic CHF (congestive heart failure): CODE(S): I50.42 - Chronic combined systolic (congestive) and diastolic (congestive) heart failure (5) Debility: CODE(S): R53.81 - Other malaise (6) PAD (peripheral artery disease): CODE(S): I73.9 - Peripheral vascular disease, unspecified (7) Essential hypertension: CODE(S): I10 - Essential (primary) hypertension (8) Obesity: CODE(S): E66.9 - Obesity, unspecified PLAN: Plan Patient seen and evaluated She is s/p excision of fifth metatarsal head right foot and left foot, debridement of ulceration to the level of muscle left foot and right foot. DOS 07/14/2024. POD #132 Currently 4 months out from intervention. Cicatrix to dorsal aspect of Right and Left foot. No signs of infection. Sites have healed well. Predebridement measurement: Right foot sub 5th met head healed; left foot sub 5th met head healed Ulceration did not undergo debridement as noted in the clinical panel above. Right foot remains healed; left foot healed. No signs of infection Her ulceration to right foot remains healed. Left foot is now healed. At this time we will continue protective weightbearing to right and left foot with the assistance of a surgical shoe. Discussed no barefoot ambulation and to always remain in the surgical shoe. Will now seek measurement/fitting for diabetic shoe with custom insert to continue to aid in offloading. Currently residing at home and her son does continue to check on them daily Discussed continued elevation of lower extremities at times of rest to aid in edema control. Discussed rewrapping of Addy wrap's or utilize Tubigrip compression for continued edema control. Discussed continued adequate protein intake to aid in wound healing. Champ supplementation was also recommended. Discussed continued reduction of A1c to aid in wound healing. Recent A1c was 6% on 07/14/2024. Discussed daily foot checks as patient is diabetic and insensate to the foot. Discussed not ambulating barefoot and encouraged shoes to be worn once healed. Discussed overall she needs to reduce ambulation and rest with feet elevated to allow healing. I do feel she ambulates on the lateral aspect of foot due to unsteady gait and obesity which lead to her bilateral ulcerations. Discussed signs and symptoms of infection. Patient and her son were instructed if there is progressive redness about the wound or top of the foot that moves up the leg, red streaking up the leg, purulent drainage from the wound site, increasing foul odor from the wound, or if she experiences fever greater than 101 degree accompanied by nausea, vomiting, chills that these are signs of a progressing infection and she should report to the ED for further evaluation and IV antibiotics. She is understanding of this. The following work up and care recommendations were made: Dressing: None Wash: Soap and water. Still instructed to not soak the foot. Tissue growth optimization: None Offload: Surgical shoe to right and left foot with fifth metatarsal head cut out. Vascular: DP and PT pulses weakly palpable. LEAS demonstrates mild arterial disease bilateral. Edema: Bilateral lower extremity edema secondary to CHF. Continued elevation of lower extremities. Will aid in edema control via Addy wrap. Recommend continued Lasix. Infection: Underwent bilateral fifth metatarsal head excision on 07/14/2024. Right fifth metatarsal head pathology demonstrates acute osteomyelitis, left fifth metatarsal head pathology demonstrates acute inflammatory reactive changes but negative for osteomyelitis. Pain: May take [id number] Tylenol for any discomfort however patient does have a insensate foot secondary to diabetic peripheral polyneuropathy. Host factors: DM type II with peripheral polyneuropathy, CHF, lower extremity edema, CKD, HTN, advanced age, obesity, PVD. At this time she has healed and is being discharged from the wound care center today. She will return to office for continued diabetic foot exams and for diabetic shoe fitting and measurement.
== END 2024-11-24 11:06 | disposition home or self-care (01) ==
LOC: WC 09:00
PROVIDERS: PCP Family Medicine; Referring Provider Student in an Organized Health Care Education/Training Program; Visit Provider Student in an Organized Health Care Education/Training Program
DX: E11.621 Type 2 diabetes mellitus with foot ulcer (principal); L97.522 Non-pressure chronic ulcer of other part of left foot with fat layer exposed; L97.512 Non-pressure chronic ulcer of other part of right foot with fat layer exposed; I11.0 Hypertensive heart disease with heart failure; I50.42 Chronic combined systolic (congestive) and diastolic (congestive) heart failure; Z68.41 Body mass index [BMI] 40.0-44.9, adult; E11.42 Type 2 diabetes mellitus with diabetic polyneuropathy; E11.51 Type 2 diabetes mellitus with diabetic peripheral angiopathy without gangrene; R53.81 Other malaise; E66.9 Obesity, unspecified; Z87.891 Personal history of nicotine dependence
CPT/HCPCS: 11042; 99213; G0463

== ENCOUNTER → 2025-01-29 | Outpatient (CLI) | payer MEDICARE, MEDICAID, SELFPAY ==
[2025-01-29 18:40] LABS: Anion Gap 12 (5-15); BUN 52 mg/dL (4-19); BUN/Creat Ratio 26.2 RATIO (10-20); Calcium,Total 9.3 mg/dL (7.6-11.0); Chloride 105 mmol/L (98-108); EST Glomerular Filtration Rate 25 (>60); Glucose 139 mg/dL (70-99); Potassium 4.4 mmol/L (3.3-5.1); Pro- Brain NATRIURETIC PEPTIDE 3923 pg/mL (<=1800); Sodium Level 139 mmol/L (133-145)
== END | disposition home or self-care (01) ==
LOC: LAB 16:38
PROVIDERS: PCP Family Medicine; Referring Provider Student in an Organized Health Care Education/Training Program; Visit Provider Student in an Organized Health Care Education/Training Program
DX: R06.02 Shortness of breath (principal); N18.9 Chronic kidney disease, unspecified
CPT/HCPCS: 36415; 80048; 83880

== ENCOUNTER 2025-02-05 09:43 | Inpatient (IN) | payer MEDICARE, SELFPAY ==
[2025-02-05] VITALS (28 sets, daily range): BP systolic 101–154; BP diastolic 40–82; PULSE 86–110; RESP 12–35; TEMP 36.2–36.7; O2SAT 35–100; BMI 20.6; BMI 41.2
[2025-02-05 10:29] LABS: Absolute Lymphocyte Count 0.51 X10^3/uL (0.83-4.51); Absolute Neutrophil Count 18.4 X10^3/uL (2.0-7.7); Basophil# 0.06 X10^3/uL; Basophil% 0.3 % (0-1); Hematocrit 27.9 % (37-47); Lymphocyte # 0.51 X10^3/ul (0.83-4.51); Lymphocyte % 2.5 % (19-41); Mean Corp Hgb Conc 28.7 g/dL (32-36); Mean Corpuscular Hgb 21.6 pg (27.0-32.0); Mean Corpuscular Volume 75.2 fL (81-99); Mean Platelet Vol. 10.6 fl (6.2-12.0); Monocyte# 1.41 X10^3/uL; Monocyte% 6.9 % (0-10); NRBC Flagged by Analyzer 0 % (0-5); Neutrophil # 18.43 X10^3/uL (2.7-7.7); Neutrophil % 89.7 % (47-70); POSITIVE DIFFERENTIAL YES; Platelet Count 226 K/mm3 (150-450); RBC Distribution Width SD 45.6 fl (35.1-43.9); Red Blood Count 3.71 M/mm3 (4.2-5.4); White Blood Count 20.5 K/mm3 (4.4-11.0)
[2025-02-05 10:59] LABS: Anion Gap 19 (5-15); BUN 58 mg/dL (4-19); BUN/Creat Ratio 24.9 RATIO (10-20); Calcium,Total 9.1 mg/dL (7.6-11.0); Carbon Dioxide 15.7 mmol/L (21.0-32.0); Chloride 100 mmol/L (98-108); Creatinine, Serum 2.32 mg/dL (0.70-1.20); EST Glomerular Filtration Rate 21 (>60); Estimated Creatinine Clearance 17.07 ml/min (50-250); Glucose 259 mg/dL (70-99); Potassium 5.5 mmol/L (3.3-5.1); Sodium Level 135 mmol/L (133-145)
--- NOTE | 2025-02-05 11:10 | RAD_ITS ---
PROCEDURE: CHEST 1 VIEW (PORTABLE) 02/05/2025 REASON FOR EXAM: DYSPNEA TECHNIQUE: Frontal view of the chest. COMPARISON: Comparison is made with prior study dated August 19, 2024. FINDINGS: Hardware: EKG electrodes are seen. Heart: Heart size is moderately enlarged. Lungs: Vascular congestion and CHF. Blunting of both costophrenic angles and bibasilar atelectasis. Bones: Degenerative changes are identified within the thoracic spine. Other: RAD/Chest 1 View (Portable) IMPRESSION: Cardiomegaly and CHF. Blunting of both costophrenic angles. Reading Location: [facility]
--- NOTE | 2025-02-05 11:11 | EKG12_ITS ---
Test Reason : SOB Blood Pressure : */* mmHG Vent. Rate : 104 BPM Atrial Rate : 104 BPM P-R Int : 148 ms QRS Dur : 168 ms QT Int : 404 ms P-R-T Axes : -13 -29 126 degrees QTcB Int : 531 ms Sinus tachycardia with Premature atrial complexes Left bundle branch block Abnormal ECG When compared with ECG of 19-Aug-2024 21:22, Premature atrial complexes are now Present Vent. rate has increased by 42 bpm T wave inversion more evident in Lateral leads Confirmed by HILLARY MOLINA, RAJ ([id number]), senior editor ASTON AQUINO ([id number]) on 02/13/2025 9:45:46 AM Referred By: Confirmed By: RAJ THORNTON MD
--- NOTE | 2025-02-05 11:15 | EDS_ITS ---
HPI History of Present Illness Chief Complaint: Shortness of Breath Informant: patient Onset/Context/Timing Onset: Days (5) Context: gradual Timing: Continuous Quality: Positive for Dyspnea on exertion and Orthopnea Worsened by: Exertion and Lying flat Relieved by: Nothing Associated Symptoms Negative for cough, rhinorrhea, post nasal drip, ear pain, fever, sore throat, chills, clear sputum, white sputum, yellow sputum or green sputum Chest Pain: Positive for Dull Narrative Narrative: Patient presents with shortness of breath that has been getting worse over the past 5 days. Patient states it is gradually getting worse. Patient states it is constant. Patient states her breathing is worse with any exertion and with laying flat. Patient states nothing seems to help with it. Patient admits to some pain over her left chest. Patient describes it as dull. Patient also admits to a wound over her right foot. Patient states she has been having some increased swelling of her lower extremities. Patient also admits to some drainage from her left leg. Patient denies any fevers or chills. PE Risk Factors: Negative for Cancer, OCP + Smoking + > 35, Prior DVT or PE, Recent surgery or Recent travel [facility] Medical History Essential hypertension Morbid obesity with BMI of 40.0-44.9, adult Hypothermia Cardiomyopathy Chronic anemia Hypoxia History of diabetes mellitus Acute metabolic encephalopathy due to hypoglycemia History of stroke Chronic kidney disease Altered level of consciousness Non-pressure chronic ulcer of other 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 Chronic kidney disease (CKD) Type 2 diabetes mellitus with hypoglycemia Diabetes mellitus with diabetic polyneuropathy Type 2 diabetes mellitus with foot ulcer Diabetes mellitus with diabetic polyneuropathy Dyspnea Ischemic cardiomyopathy History of CVA (cerebrovascular accident) Atherosclerosis of coronary artery without angina pectoris Type 2 diabetes mellitus Secondary pulmonary arterial hypertension Chronic combined systolic and diastolic CHF (congestive heart failure) Essential hypertension Obesity Chronic kidney disease (CKD) GI bleed (01/2022) Anemia Diabetes mellitus type 2 in obese Hyperlipidemia Home Medications ?Medication ?Instructions ?Recorded ?Last Taken ?Type atorvastatin 40 mg tablet 40 mg PO QHS CHOLESTEROL Unknown History aspirin 81 mg tablet,delayed 81 mg PO DAILY HEART HEAL TH 06/03/22 Unknown History release (Adult Aspirin Regimen) dapagliflozin propanediol 10 mg 10 mg PO DAILY DIABETE S #90 tabs 07/12/24 Unknown Rx tablet (Farxiga) blood sugar diagnostic (Accu-Chek 07/13/24 Unknown Hi story Alvina Plus test strips) fluoxetine 10 mg capsule 10 mg PO DAILY DEPERSSION Unknown History insulin lispro 100 unit/mL 25 unit subcut ACHS DM 06/27 04/19 Unknown History subcutaneous pen (Humalog KwikPen (U-100) Insulin) amlodipine 5 mg tablet 5 mg PO DAILY HEART #0 tabs 07/18/24 Unknown Rx vitamin B complex (Complex B-100 1 tab PO DAILY HEALTH MAINTENENCE 08/19/24 Unknown History tablet,extended release) carvedilol 12.5 mg tablet 12.5 mg PO BIDCM #30 tabs Unknown Rx losartan 50 mg tablet 50 mg PO DAILY #30 tabs 07/29 03/20 Unknown Rx furosemide 40 mg tablet 40 mg PO BID #60 tabs Unknown Rx metolazone 5 mg tablet 5 mg PO DAILY HE 01/30/25 Un known History acetaminophen 325 mg tablet 650 mg PO Q6H PRN Pain 1-1 0 Or 02/05/25 Unknown History Fever >100.7 Allergy/AdvReac Type Severity Reaction Status Date / Time No Known Allergies Allergy Verified 02/05/25 09:50 Family History Father Diabetes Heart disease CAD (coronary artery disease) Mother Heart disease Surgical History History of coronary artery stent placement (09/2013) H/O vein stripping Status post angioplasty with stent Social History household members: family Smoking Status: Former smoker how long ago did patient quit smokin years ago alcohol intake: never substance use type: does not use caffeine: Yes ROS ROS ED Constitutional Constitutional ED: Denies chills or fever(s) Eyes Eyes: Denies blurry vision or change in vision ENT ENT ED: Denies rhinorrhea or sore throat Cardiovascular Cardiovascular: Reports chest pain; Denies palpitations Respiratory/Chest Respiratory/Chest: Reports dyspnea; Denies cough Gastrointestinal Gastrointestinal: Denies nausea or vomiting Genitourinary Genitourinary ED: Denies dysuria or hematuria Musculoskeletal Musculoskeletal: Denies back pain or neck pain Integumentary Denies abscess or rash Neurologic Neurologic: Reports weakness; Denies headache(s) Allergic/Immunologic Allergic/Immunologic ED: Denies mouth swelling or urticaria EXAM Physical Exam Const Vital Signs: 02/05/25 09:46 02/05/25 09:50 02/05/25 09:53 Temperature 98.1 F 98.1 F Temperature Source Oral Oral Pulse Rate 103 H 101 H Respiratory Rate 25 H 29 H Respiratory Effort Short of Breath Labored Blood Pressure 125/64 H 125/64 H Blood Pressure Mean 84 84 Pulse Ox 80 95 Oxygen Delivery Method Room Air Nasal Cannula Nasal Cannula Oxygen Flow Rate (L/min) 4 4 02/05/25 10:18 02/05/25 10:18 02/05/25 10:50 Temperature 97.9 F Temperature Source Oral Pulse Rate 110 H Respiratory Rate 33 H 35 H Respiratory Effort Blood Pressure 101/72 Blood Pressure Mean 81 Pulse Ox 96 97 92 Oxygen Delivery Method Nasal Cannula Nasal Cannula Oxygen Flow Rate (L/min) 4 5 02/05/25 11:20 02/05/25 12:00 02/05/25 13:00 Temperature Temperature Source Pulse Rate 108 H 98 105 H Respiratory Rate 27 H 29 H 33 H Respiratory Effort Blood Pressure 101/72 140/69 H 154/82 H Blood Pressure Mean 81 92 106 Pulse Ox 93 94 96 Oxygen Delivery Method Room Air Nasal Cannula Nasal Cannula Oxygen Flow Rate (L/min) 6 6 02/05/25 13:06 Temperature 97.9 F Temperature Source Pulse Rate 105 H Respiratory Rate 33 H Respiratory Effort Blood Pressure 154/82 H Blood Pressure Mean 106 Pulse Ox 96 Oxygen Delivery Method Oxygen Flow Rate (L/min) Positive well nourished and well developed General Appearance ED: well developed and NAD HEENT Reports moist mucous membranes Neck supple and no JVD Resp normal respiratory effort and clear to auscultation bilaterally Cardio regular rhythm Rate: tachycardic GI non-tender and non-distended Palpation: soft Extremity General Extremety ED: Yes edema and tenderness General Extremity: edema Neuro oriented x3, CN's II-XII intact bilaterally and no sensory deficits noted [place] Coma Scale: document GCS findings Spontaneous Obeys Commands Oriented 15 Sensorium / Orientation: alert Speech: speech normal Motor Exam: strength 5/5 throughout Psych mental status grossly normal MDM MDM MDM Narrative Medical decision making narrative: Differential diagnosis includes pneumonia, sepsis, congestive heart failure, cardiac dysrhythmia, cardiac ischemia, electrolyte abnormality, urinary tract infection, open wound, cellulitis, and sepsis. EKG will be obtained to assess for cardiac dysrhythmia and cardiac ischemia. Chest x-ray will be obtained to assess for pneumonia and bronchitis and congestive heart failure. CBC will be obtained to assess for leukocytosis and anemia. Basic metabolic profile will be obtained to assess for electrolyte abnormality and renal function. Urinalysis will be obtained to assess for urinary tract infection and hematuria. BNP will be obtained to assess for congestive heart failure. High-sensitivity troponin will be obtained to assess for cardiac ischemia. 2-hour repeat high-sensitivity troponin will be obtained to assess for ongoing cardiac ischemia. Blood cultures will be obtained to assess for sepsis. Serum lactate will be obtained to assess for sepsis. Urine culture will be obtained to assess for urinary tract infection. PT with INR and PTT will be obtained to assess for coagulopathy. Lab Data Attestation: I reviewed the patient's lab results. Lab results narrative: CBC was reviewed. There is a leukocytosis of 20.5. There is a mild anemia with a hemoglobin of 8.0 and hematocrit 27.9. Platelets were normal. Patient metabolic profile was reviewed. BUN was elevated at 58 and creatinine was 2.32. Potassium was slightly elevated at 5.5. CO2 was low at 15.7. Anion gap was slightly elevated at 19. Glucose was mildly elevated at 259. [place] [address]. High-sensitivity troponin was reviewed and was elevated at 218. Urinalysis was reviewed. Leukocyte Estrace was 500. There are 10-25 white blood cells. Labs: Laboratory Results - last 24 hr 02/05/25 02/05/25 02/05/25 09:59 10:47 11:20 WBC 20.5 H RBC 3.71 L Hgb 8.0 L Hct 27.9 L MCV 75.2 L MCH 21.6 L MCHC 28.7 L RDW Std Deviation 45.6 H RDW Coeff of Bulmaro 17.0 H Plt Count 226 MPV 10.6 Immature Gran % (Auto) 0.600 Neut % (Auto) 89.7 H Lymph % (Auto) 2.5 L Garvin % (Auto) 6.9 Eos % (Auto) 0.0 Baso % (Auto) 0.3 Absolute Neuts (auto) 18.4 H Absolute Lymphs (auto) 0.51 L Nucleated RBC % 0 PT 17.1 H INR 1.4 APTT 31.7 Sodium 135 Potassium 5.5 H Chloride 100 Carbon Dioxide 15.7 L Anion Gap 19 H BUN 58 H Creatinine 2.32 H Estim Creat Clear Calc 17.07 L Est GFR (MDRD) Non-Af 21 L BUN/Creatinine Ratio 24.9 H Glucose 259 H Lactic Acid 2.5 H* Calcium 9.1 Phosphorus Magnesium Troponin T High Sens 218 H* Troponin T Hi Sens 2 [place] [address] H Urine Color Yellow Urine Clarity Clear Urine pH 5.0 Ur Specific [place] 1.025 Urine Protein 30 H Urine Glucose (UA) 100 H Urine Ketones Negative Urine Occult Blood 10 H Urine Nitrite Negative Urine Bilirubin Negative Urine Urobilinogen Normal Ur Leukocyte Esterase 500 H Urine RBC 0 SEEN Urine WBC 10-25 SEEN Ur Squamous Epith Cells 0 SEEN Urine Bacteria 0 SEEN Urine Mucus 0 SEEN 02/05/25 13:03 WBC RBC Hgb Hct MCV MCH MCHC RDW Std Deviation RDW Coeff of Bulmaro Plt Count MPV Immature Gran % (Auto) Neut % (Auto) Lymph % (Auto) [place] % (Auto) Eos % (Auto) Baso % (Auto) Absolute Neuts (auto) Absolute Lymphs (auto) Nucleated RBC % PT INR APTT Sodium Potassium Chloride Carbon Dioxide Anion Gap BUN Creatinine Estim Creat Clear Calc Est GFR (MDRD) Non-Af BUN/Creatinine Ratio Glucose Lactic Acid Calcium Phosphorus 6.1 H Magnesium 2.6 H Troponin T High Sens Troponin T Hi Sens 2 Hr 241 H* NT pro BNP II Urine Color Urine Clarity Urine pH Ur Specific [place] Urine Protein Urine Glucose (UA) Urine Ketones Urine Occult Blood Urine Nitrite Urine Bilirubin Urine Urobilinogen Ur Leukocyte Esterase Urine RBC Urine WBC Ur Squamous Epith Cells Urine Bacteria Urine Mucus Radiography Chest X-Ray - ED: 1 View, Read by ED Physician and Read by Radiologist Diagnostic Testing: Clinical Impression(s) from Imaging Studies Chest X-Ray 02/05/25 11:10 IMPRESSION: Cardiomegaly and CHF. Blunting of both costophrenic angles. Reading Location: [facility] Portable 1 view chest x-ray was obtained. On my independent interpretation, lung kiran show congestive heart failure and blunting of the costophrenic angles bilaterally. There is cardiomegaly. Bony thorax is normal. There is no acute process noted. Radiologist also interpreted the x-ray and agrees. EKG Initial EKG: Attestation: I personally reviewed and interpreted this EKG as follows: Interpretation: Sinus Tachycardia (104) and LBBB Comments: EKG was obtained. On my independent interpretation, shows a sinus tachycardia with a rate of 104. There are occasional PACs noted. CO interval was normal at 148 ms. QRS interval was prolonged at 168 ms. QTc interval was 531 ms. There is left axis deviation at -29. There is a left bundle branch block pattern noted. Prior EKG tracings: available for review Prior: Unchanged (08/19/2024) Management Discussion w/another healthcare provider: Hospitalist (Dr. Gomez) and Industrial Technologist (Dr. Cardona) Treatment and Re-Evaluation :: Patient was given Lasix. Patient was started on Ancef for cellulitis of her right leg. Case was discussed with Dr. Cardona from cardiology. He recommended giving the patient Lovenox. Case was discussed with the hospitalist. He will admit the patient to his service. Patient understood and was agreeable with the plan. All questions were answered. Hospitalist was in to evaluate the patient and felt the patient was having worsening shortness of breath. The patient was placed on BiPAP. Patient was doing better after this. Patient will be admitted to ICU. Patient understood and was agreeable with the plan. All questions were answered. Critical Care Time Critical Care Time: Yes Critical care time (excluding procedures): 30-74 minutes (32), Including time spent:, Discussing w/Patient &/or Family/Transportation Logistics Internship, Discussing w/Consultants, Arranging Admission or Transfer and Performing Direct Patient Care at Bedside Discharge Plan Dx/Rx/DC Orders Clinical Impression: Chronic combined systolic and diastolic CHF (congestive heart failure), Chronic kidney disease (CKD), Elevated troponin, Cellulitis of right anterior lower leg, Urinary tract infection Disposition Disposition: [facility]
[2025-02-05 11:28] LABS: Bacteria 0 SEEN /hpf (None Seen); Mucous, Urine 0 SEEN /hpf (<or=2+); Red Blood Cells-Urine 0 SEEN /hpf (0-5); Squamous Epithelial Cells - UA 0 SEEN /hpf (5-10)
[2025-02-05 11:29] LABS: Color, Urine Yellow (Yellow); Glucose, Dipstick 100 mg/dl (Normal); Ketone-Dipstick Negative (Negative); Leukocyte Esterase-Dipstick 500 /ul (Negative); Nitrite-Dipstick Negative (Negative); Occult Blood-Urine 10 /ul (Negative); Protein-Dipstick 30 mg/dl (Negative); Specific Gravity, Urine 1.025 (1.002-1.030); Urine Bilirubin Dipstick Negative (Negative); Urine Clarity Clear (Clear); Urine Urobilinogen Normal (Normal)
[2025-02-05] MEDS: Furosemide 40 MG/4 ML Vial IV ×2 (11:34→13:37)
[2025-02-05 11:35] LABS: White Blood Cells 10-25 SEEN /hpf (0-5)
[2025-02-05 11:53] LABS: Pro- Brain NATRIURETIC PEPTIDE 29822 pg/mL (<=1800)
[2025-02-05 11:55] LABS: Troponin T High Sensitivity 218 ng/L (<=14)
[2025-02-05 12:10] LABS: Lactic Acid 2.5 mmol/L (0.0-2.0)
[2025-02-05 12:11] LABS: International Normalized Ratio 1.4; Prothrombin Time (Protime)PT. 17.1 SECONDS (11.7-14.9)
[2025-02-05 12:12] LABS: Partial Thromboplast Time 31.7 Seconds (24.1-36.2)
--- NOTE | 2025-02-05 12:13 | ED.RN ---
Dr Yan notified of critical troponin
[2025-02-05] MEDS: Cefazolin 2 GM in 0.9% Normal Saline (100mL Bag) 100 ML IV (12:54)
--- NOTE | 2025-02-05 13:11 | PCM.HP.STD ---
HPI - General General Date of Admission: 02/05/25 Date of Service: 02/05/25 Chief Complaint: Shortness of breath ongoing for 1 week HPI Narrative PRICILA WALDROP, is a 74 F with multiple comorbidities came to ED progressive worsening of shortness of breath for 1 week. She also has bilateral lower extremity edema looks chronic for 6 months. Patient is very short of breath and cannot give detailed history and was urgently put on the BiPAP. Patient denies chest tightness but to the ED physician she complained of some pain over her left chest, dull aching. Detailed history regarding palpitation, near syncope could not be taken because of shortness of breath. She also has a healing wound on the right leg on the lateral surface with surrounding cellulitis with redness and induration. She is being followed in the wound center by Dr. Erwin last seen in October 2024 and has bilateral fifth metatarsal head excision with history of osteomyelitis in the past in June 2024. No fever. Clinical assessment consistent with CHF exacerbation. Patient had Lasix 40 mg IV in the ED Labs, EKG and chest x-ray to be discussed in assessment and plan. FOR[facility]LY [facility] Medical History Essential hypertension Morbid obesity with BMI of 40.0-44.9, adult Hypothermia Cardiomyopathy Chronic anemia Hypoxia History of diabetes mellitus Acute metabolic encephalopathy due to hypoglycemia History of stroke Chronic kidney disease Altered level of consciousness Non-pressure chronic ulcer of other 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 Chronic kidney disease (CKD) Type 2 diabetes mellitus with hypoglycemia Diabetes mellitus with diabetic polyneuropathy Type 2 diabetes mellitus with foot ulcer Diabetes mellitus with diabetic polyneuropathy Dyspnea Ischemic cardiomyopathy History of CVA (cerebrovascular accident) Atherosclerosis of coronary artery without angina pectoris Type 2 diabetes mellitus Secondary pulmonary arterial hypertension Chronic combined systolic and diastolic CHF (congestive heart failure) Essential hypertension Obesity Chronic kidney disease (CKD) GI bleed (01/2022) Anemia Diabetes mellitus type 2 in obese Hyperlipidemia Home Medications ?Medication ?Instructions ?Recorded ?Last Taken ?Type atorvastatin 40 mg tablet 40 mg PO QHS CHOLESTEROL 02/22/22 Unknown History aspirin 81 mg tablet,delayed 81 mg PO DAILY HEART HEALTH 06/03/22 Unknown History release (Adult Aspirin Regimen) dapagliflozin propanediol 10 mg 10 mg PO DAILY DIABETES #90 tabs 07/12/24 Unknown Rx tablet (Farxiga) blood sugar diagnostic (Accu-Chek 07/13/24 Unknown History Alvina Plus test strips) fluoxetine 10 mg capsule 10 mg PO DAILY DEPERSSION 07/13/24 Unknown History insulin lispro 100 unit/mL 25 unit subcut ACHS DM 07/13/24 Unknown History subcutaneous pen (Humalog KwikPen (U-100) Insulin) amlodipine 5 mg tablet 5 mg PO DAILY HEART #0 tabs 07/18/24 Unknown Rx vitamin B complex (Complex B-100 1 tab PO DAILY HEALTH MAINTENENCE 08/19/24 Unknown History tablet,extended release) carvedilol 12.5 mg tablet 12.5 mg PO BIDCM #30 tabs 08/22/24 Unknown Rx losartan 50 mg tablet 50 mg PO DAILY #30 tabs 08/22/24 Unknown Rx furosemide 40 mg tablet 40 mg PO BID #60 tabs 01/30/25 Unknown Rx metolazone 5 mg tablet 5 mg PO DAILY HE 01/30/25 Unknown History acetaminophen 325 mg tablet 650 mg PO Q6H PRN Pain 1-10 Or 02/05/25 Unknown History Fever >100.7 Allergy/AdvReac Type Severity Reaction Status Date / Time No Known Allergies Allergy Verified 02/05/25 09:50 Family History Father Diabetes Heart disease CAD (coronary artery disease) Mother Heart disease Surgical History History of coronary artery stent placement (09/2013) H/O vein stripping Status post angioplasty with stent Social History household members: family Smoking Status: Former smoker how long ago did patient quit smokin years ago alcohol intake: never substance use type: does not use caffeine: Yes ROS ROS Narrative Complete 12 ROS unobtainable. Review of Systems ROS Unobtainable: other Details: Extreme dyspnea and shortness of breath extreme Vital Signs Vital Signs Vital Signs: 02/05/25 09:46 02/05/25 09:50 02/05/25 09:53 Temperature 98.1 F 98.1 F Temperature Source Oral Oral Pulse Rate 103 H 101 H Respiratory Rate 25 H 29 H Respiratory Effort Short of Breath Labored Blood Pressure 125/64 H 125/64 H Blood Pressure Mean 84 84 Pulse Ox 80 95 Oxygen Delivery Method Room Air Nasal Cannula Nasal Cannula Oxygen Flow Rate (L/min) 4 4 02/05/25 10:18 02/05/25 10:18 02/05/25 10:50 Temperature 97.9 F Temperature Source Oral Pulse Rate 110 H Respiratory Rate 33 H 35 H Respiratory Effort Blood Pressure 101/72 Blood Pressure Mean 81 Pulse Ox 96 97 92 Oxygen Delivery Method Nasal Cannula Nasal Cannula Oxygen Flow Rate (L/min) 4 5 02/05/25 11:20 02/05/25 12:00 02/05/25 13:00 Temperature Temperature Source Pulse Rate 108 H 98 105 H Respiratory Rate 27 H 29 H 33 H Respiratory Effort Blood Pressure 101/72 140/69 H 154/82 H Blood Pressure Mean 81 92 106 Pulse Ox 93 94 96 Oxygen Delivery Method Room Air Nasal Cannula Nasal Cannula Oxygen Flow Rate (L/min) 6 6 02/05/25 13:06 Temperature 97.9 F Temperature Source Pulse Rate 105 H Respiratory Rate 33 H Respiratory Effort Blood Pressure 154/82 H Blood Pressure Mean 106 Pulse Ox 96 Oxygen Delivery Method Oxygen Flow Rate (L/min) Weight Weight: 116 lb 6.4 oz Body Mass Index (BMI) 20.6 Physical Exam Narrative General: Awake, fatigued, tired/lethargic but extremely dyspneic HEENT: Atraumatic, PERRLA, EOMI, Normocephalic. Oral: Oral mucosa dry, deep oropharyngeal structures could not be visualized Neck: Supple, elevated BL JVD, Negative Carotid Bruits Chest wall/Lungs: Air entry severely diminished in all lung kiran. Bilateral coarse crepitation Cardiovascular: Sinus, Normal S1,S2, No M/G/R Abdomen: Bowel Sounds Present, Soft, Non Tender, Non-Distended : No dysuria. No renal angle tenderness. No suprapubic tenderness. Extremities: 3+ bilateral pitting edema, Capillary Refill Less than 3 Seconds Skin: Healing superficial scratch/ulcer over lateral aspect of right leg with surrounding contiguous cellulitis Musculoskeletal: No Tenderness to Palpation of Joints or Extremities. ROM restricted Neurological: Cranial nerves II-XII grossly intact, DTR 2+/4. No acute focal neurological deficit. Psych/Mental Status: Flat affect. Results Lab / Micro Data 02/05/25 09:59 02/05/25 09:59 Labs: Laboratory Results - last 24 hr 02/05/25 09:59: WBC 20.5 H, RBC 3.71 L, Hgb 8.0 L, Hct 27.9 L, MCV 75.2 L, MCH 21.6 L, MCHC 28.7 L, RDW Std Deviation 45.6 H, RDW Coeff of Bulmaro 17.0 H, Plt Count 226, MPV 10.6, Immature Gran % (Auto) 0.600, Neut % (Auto) 89.7 H, Lymph % (Auto) 2.5 L, [place] % (Auto) 6.9, Eos % (Auto) 0.0, Baso % (Auto) 0.3, Absolute Neuts (auto) 18.4 H, Absolute Lymphs (auto) 0.51 L, Nucleated RBC % 0, PT 17.1 H, INR 1.4, APTT 31.7, Sodium 135, Potassium 5.5 H, Chloride 100, Carbon Dioxide 15.7 L, Anion Gap 19 H, BUN 58 H, Creatinine 2.32 H, Estim Creat Clear Calc 17.07 L, Est GFR (MDRD) Non-Af 21 L, BUN/Creatinine Ratio 24.9 H, Glucose 259 H, Lactic Acid 2.5 H*, Calcium 9.1 02/05/25 10:47: Troponin T High Sens 218 H*, [place] [address] H 02/05/25 11:20: Urine Color Yellow, Urine Clarity Clear, Urine pH 5.0, Ur Specific [place] 1.025, Urine Protein 30 H, Urine Glucose (UA) 100 H, Urine Ketones Negative, Urine Occult Blood 10 H, Urine Nitrite Negative, Urine Bilirubin Negative, Urine Urobilinogen Normal, Ur Leukocyte Esterase 500 H, Urine RBC 0 SEEN, Urine WBC 10-25 SEEN, Ur Squamous Epith Cells 0 SEEN, Urine Bacteria 0 SEEN, Urine Mucus 0 SEEN Imaging Radiology Impression Chest X-Ray 02/05/25 11:10 IMPRESSION: Cardiomegaly and CHF. Blunting of both costophrenic angles. Reading Location: [id number] Assessment & Plan Assessment/Plan (1) Acute on chronic combined systolic (congestive) and diastolic (congestive) heart failure: (2) Cellulitis of right anterior lower leg: PLAN: Plan This 74-year-old female is being admitted for extreme dyspnea at rest/shortness of breath and bilateral lower extremity edema consistent with acute on chronic heart failure 1. Acute on chronic respiratory failure due to heart failure exacerbation: The patient is being admitted in ICU on BiPAP. ABG stat ordered. Discussed with the ED physician to watch for half an hour if she does not improve will need intubation prior to transfer to ICU. Currently on 6 L of oxygen. Lactic acidosis most likely due to pulmonary edema/hypoxia. Patient does not have signs and symptoms of sepsis. The patient not on home oxygen or NIPPV at home 2. Acute on chronic combined heart failure: BNP about 30,000. Chest x-ray initially reviewed and shows pulmonary edema, cardiomegaly and blunting of both CP angles. Twelve-lead EKG sinus tachycardia, 104 bpm, QRS 168, QTc 531 ms. LBBB. 3. Elevated troponin probably due to increased cardiac demand with suspicion of possible non-STEMI: Patient complained of nondescriptive chest pain. Lesion discussed with integration lead Dr. Cardona. Recommended enoxaparin 1 dose. Troponin 218, 241. Third troponin pending. EKG as described above. Patient has CAD status post stents, on aspirin and statin. Hold carvedilol because of CHF exacerbation/fluid overload and resume once euvolemic. Last echo in February 2024 shows EF 35%, moderately severe segmental systolic dysfunction, stage I diastolic dysfunction. Mitral valve, tricuspid valve reported normal. She had Lasix 40 mg IV in ED. 1 more dose of Lasix 40 mg IV stat, then started on Lasix drip. Heart failure core measures including intake and output, fluid restriction less than 1500 mL, daily weight monitoring, kidney and electrolytes monitoring. Repeat 2D echo. Sales Advisor consulted from ED physician ELIDA on CKD stage IV: Patient baseline creatinine runs around 2.0 as in January 2025. Admitting BUN/creatinine 58/2.32 therefore ELIDA on CKD stage IV. Local [employer]ination [employer] consulted. Patient has hyperkalemia, 5.5, high anion gap metabolic acidosis, AG 19, bicarb 15. ABG ordered as mentioned above. Kayexalate and hyperkalemia cocktail ordered. Repeat BMP after 4 hours. Hold losartan metolazone. 4. Chronic severe anemia: H&H 8.0/27.9%. MCV 75 RDW elevated 17.0. Possible chronic iron deficiency anemia. Monitor CBC. Iron workup ordered for tomorrow a.m. 5. DM type II: Last A1c 5.2% in July 2024. Accu-Chek before meals and at bedtime with Humalog sliding scale coverage and hypoglycemia protocol. Most recent glucoses elevated, 259 BMP 6. Chronic bilateral fifth metatarsal excision: Superficial ulcer of left lateral leg and contiguous cellulitis: MRSA wound and nasal screen ordered. IV cefazolin given in ED. IV ceftriaxone ordered 7. Past history of CVA: History of remote left lacunar infarct. On aspirin and statin, continued 8. Morbid obesity: Current weight 116 pounds, BMI 20.6 kg/m?. I think this is wrong/error reading of her weight as her BMI is 43.5 kg/m? in July 2024 and she looks more swollen edematous and heavy weight. 9. Depression and anxiety: On Flexotard continue 10. DVT prophylaxis on therapeutic dose of Lovenox Living will/advanced directive/end of life care: Patient does not have living will or advanced directive. After discussion of benefits/risks procedures involved with full code, DNR CC arrest and DNR CC, the patient opted for full code. Patient does want artificial life support including intubation, tube feed, ventilator and/chest compression, central venous catheter, vasopressor and DC shock if needed Total time spent in [id number] encounter in discussion of advanced directive 17 minutes. Laboratory Results 02/05/25 09:59: WBC 20.5 H, RBC 3.71 L, Hgb 8.0 L, Hct 27.9 L, MCV 75.2 L, MCH 21.6 L, MCHC 28.7 L, RDW Std Deviation 45.6 H, RDW Coeff of Bulmaro 17.0 H, Plt Count 226, MPV 10.6, Immature Gran % (Auto) 0.600, Neut % (Auto) 89.7 H, Lymph % (Auto) 2.5 L, [place] % (Auto) 6.9, Eos % (Auto) 0.0, Baso % (Auto) 0.3, Absolute Neuts (auto) 18.4 H, Absolute Lymphs (auto) 0.51 L, Nucleated RBC % 0, PT 17.1 H, INR 1.4, APTT 31.7, Sodium 135, Potassium 5.5 H, Chloride 100, Carbon Dioxide 15.7 L, Anion Gap 19 H, BUN 58 H, Creatinine 2.32 H, Estim Creat Clear Calc 17.07 L, Est GFR (MDRD) Non-Af 21 L, BUN/Creatinine Ratio 24.9 H, Glucose 259 H, Lactic Acid 2.5 H*, Calcium 9.1 02/05/25 10:47: Troponin T High Sens 218 H*, [place] [address] H 02/05/25 11:20: Urine Color Yellow, Urine Clarity Clear, Urine pH 5.0, Ur Specific [place] 1.025, Urine Protein 30 H, Urine Glucose (UA) 100 H, Urine Ketones Negative, Urine Occult Blood 10 H, Urine Nitrite Negative, Urine Bilirubin Negative, Urine Urobilinogen Normal, Ur Leukocyte Esterase 500 H, Urine RBC 0 SEEN, Urine WBC 10-25 SEEN, Ur Squamous Epith Cells 0 SEEN, Urine Bacteria 0 SEEN, Urine Mucus 0 SEEN 02/05/25 13:03: Phosphorus 6.1 H, Magnesium 2.6 H, Troponin T Hi Sens 2 Hr 241 H* Clinical Impression(s) from Imaging Studies Chest X-Ray 02/05/25 11:10 IMPRESSION: Cardiomegaly and CHF. Blunting of both costophrenic angles. Reading Location: [facility] Charges/Coding Visit Charges Inpatient E&M: 17173 Init Hosp L3 Procedures Hospitalists Procedures: 94246 Advncd Care Plan 30 Min
--- NOTE | 2025-02-05 13:56 | ED.RN ---
Dr. Corona notified of 22 mLs out during morillo insertion.
[2025-02-05 13:59] LABS: Troponin T High Sens 2 HR 241 ng/L (<=14)
[2025-02-05 14:23] LABS: Magnesium 2.6 mg/dL (1.5-2.2); Phosphorus 6.1 mg/dL (2.7-4.5)
[2025-02-05] MEDS: Calcium Gluconate 1 GM/10 ML Vial IVP (15:02)
[2025-02-05] MEDS: Enoxaparin 60 MG/0.6 ML Syringe SC (15:03)
[2025-02-05] MEDS: Insulin Lispro 10 UNIT in Syringe 0 ML 6 UNIT IV (15:03)
[2025-02-05] MEDS: Furosemide 500 MG in Empty Viaflex 50 mL 1 EACH CONT INF (15:03)
[2025-02-05 15:17] LABS: Allen Test Positive; Base Excess -8 mmol/L (-2 to +2); Bicarbonate 20.3 mmol/L (22-26); Blood Gas Specimen Type ART; Mode Not entered; O2 Delivery Device BiPAP; PO2 133 mmHG (75-100); SITE R Radial; SO2 98 % (95-99); Total Carbon Dioxide 22 mmol/L; pCO2 50.7 mmHg (35-45); pH 7.21 (7.35-7.45)
[2025-02-05 15:49] LABS: Reflex Lactate? Y
--- NOTE | 2025-02-05 15:54 | ECHOCS_ITS ---
Reason For Study Reason For Study: Dyspnea/SOB Procedure This was a 2D Doppler, Color Flow transthoracic echocardiogram. Contrast injection was performed. Exam performed portable in ICU/CCU. Left Ventricle Mildly dilated left ventricle. The left ventricular ejection fraction is 15 %. There are regional wall motion abnormalities as specified. Mid-Posterior: Akinetic. Mid-Inferior: Akinetic. Mid-Anterior : Normal. The rest of the wall segments are hypokinetic. Mid-Lateral : Normal. Right Ventricle Normal RV size. Normal systolic function. Atria The left atrium is mildly enlarged. Normal right atrium. Mitral Valve Normal mitral valve. Mild-Moderate (1-2+) eccentric mitral valve insufficiency. Tricuspid Valve Normal tricuspid valve. Moderate (2+) tricuspid valve insufficiency. Pulmonary artery systolic pressure is 60 mmHg. Pulmonic Valve Normal pulmonic valve. Great Vessels Normal aortic root. The pulmonary artery is normal size. Pericardium/Pleural No pericardial effusion. Medication Diluted definity 1ml given slow IV push to enhance endocardial definition. MMode/2D Measurements & Calculations LVIDd: 5.7 cm IVSd: 1.1 cm Ao root diam: 2.7 cm LVIDs: 5.0 cm LVPWd: 1.1 cm RVDd: 4.8 cm FS: 12.7 % LAV(MOD-bp): 75.0 ml LVAd ap4: 43.8 cm2 SV(MOD-sp4): 19.0 ml LAV(MOD-bp) Indexed: 35.2 ml/m2 LVLd ap4: 8.8 cm SI(MOD-sp4): 8.9 ml/m2 LAV(MOD-sp2): 78.1 ml EDV(MOD-sp4): 178.8 ml LAV(MOD-sp4): 70.3 ml EDV(sp4-el): 184.2 ml LVAs ap4: 41.2 cm2 LVLs ap4: 8.8 cm ESV(MOD-sp4): 159.7 ml ESV(sp4-el): 163.9 ml EF(MOD-sp4): 10.6 % EF(sp4-el): 11.0 % SV(sp4-el): 20.3 ml LA A4 area: 22.6 cm2 LA dimension(2D): 4.4 cm RA A4 area: 16.4 cm2 TAPSE: 2.2 cm Time Measurements MV dec time: 0.17 sec Doppler Measurements & Calculations MV E max remberto: 145.1 cm/sec Lat Peak E' Remberto: 6.4 cm/sec Med Peak E' Remberto: 5.9 cm/sec MV A max remberto: 119.4 cm/sec E/E' lat: 22.7 E/E' med: 24.8 MV E/A: 1.2 Ao V2 max: 144.0 cm/sec LV V1 max: 104.8 cm/sec MV dec slope: 870.8 cm/sec2 Ao max P.3 mmHg LV V1 max P.4 mmHg Ao V2 mean: 112.5 cm/sec Ao mean P.4 mmHg Ao V2 VTI: 26.3 cm PA V2 max: 83.8 cm/sec TR max remberto: 368.5 cm/sec TR max P.3 mmHg ECHO/Echo Complete W/ Contrast Interpretation Summary Mildly dilated left ventricle. The left ventricular ejection fraction is 15 %. There are regional wall motion abnormalities as specified. Mid-Posterior: Akinetic. Mid-Inferior: Akinetic. Mid-Anterior : Normal. Compared to previous study, the left ventricular systolic function has worsened .. Ordering Physician: Zachery Gomez Referring Physician: Nabor James Performed By: Pushpa Marquis, LOUIE, RVT
[2025-02-05 16:48] LABS: Lactic Acid 1.8 mmol/L (0.0-2.0)
[2025-02-05] MEDS: Ceftriaxone 1 GM/50 ML BAG IV (17:16)
[2025-02-05] MEDS: 0.9% Normal Saline (250mL Bag) 250 ML 15 ML IV (17:16)
[2025-02-05] MEDS: 0.9% Saline Lock 10 ML Syringe IV ×2 (17:16→18:35)
[2025-02-05 17:24] LABS: Bedside Glucose 217 mg/dL (74-106)
--- NOTE | 2025-02-05 17:36 | PCM.CONS.C ---
Assessment & Plan Assessment/Plan (1) Acute on chronic combined systolic (congestive) and diastolic (congestive) heart failure: PLAN: Patient has a history of congestive heart failure related to ischemic cardiomyopathy. BNP is significantly elevated compared to a week ago. Agree with the IV Lasix to assist with diuresis. The patient also appears to be septic elevated white count lactic acid at 2.5 and a pH of 7.21 consistent with a metabolic acidosis. Patient is currently on BiPAP her heart rate is improved. Patient's metabolic issues and her renal function we will switch her from ARB therapy to hydralazine and nitrates for afterload reduction. Will continue IV Lasix and her carvedilol. Also recommend discontinuing amlodipine as this may potentiate some of the lower extremity edema. Will monitor her blood pressure and increase her carvedilol as tolerated as well as hydralazine. (2) Elevated troponin: PLAN: The patient has a history of known coronary disease. This post stenting of the LAD and circumflex remotely back in 2013. He was reevaluated in 2021 with a stress test that demonstrated an ischemic cardiomyopathy with evidence of previous infarct and mild godfrey-infarct ischemia. At that time the patient has been treated medically. Her troponins were 218 and 241 on the first 2 sets. This is not unexpected with someone with known coronary disease and ischemic cardiomyopathy in the face of sepsis with elevated lactic acid and acidosis with a pH of 7.21 and worsening renal insufficiency. I do not feel that this represents a primary cardiac event. This appears to be demand ischemia. The patient's ECG is a chronic left bundle branch block. (3) Atherosclerosis of coronary artery without angina pectoris: QUALIFIERS: Coronary Disease-Associated Artery/Lesion type: [place] artery [place] vs. transplanted heart: [place] heart Qualified Code(s): I25.10 - Atherosclerotic heart disease of [place] coronary artery without angina pectoris PLAN: Patient status post ending of the LAD and circumflex in 2013. (4) Chronic kidney disease (CKD): QUALIFIERS: Chronic kidney disease stage: stage 4 (GFR 15-29) Qualified Code(s): N18.4 - Chronic kidney disease, stage 4 (severe) PLAN: Patient's creatinine clearance is 17 today. BUN is 58 creatinine 2.32. 1 week ago on January 29 the creatinine was 2.0. Given these change the ARB therapy and tried to use afterload reduction with a combination of nitroglycerin and hydralazine. (5) Hyperlipidemia: QUALIFIERS: Hyperlipidemia type: mixed hyperlipidemia Qualified Code(s): E78.2 - Mixed hyperlipidemia PLAN: Patient's lipids are treated with atorvastatin 40 mg daily. (6) Essential hypertension: PLAN: Blood pressure is elevated at this point in time. We will stop losartan and treat her with continuing the carvedilol and adding hydralazine 25 mg 3 times daily and Isordil dinitrate 20 mg twice daily. (7) Type 2 diabetes mellitus with foot ulcer: QUALIFIERS: Diabetes mellitus termite treater helper insulin use: unspecified skilled nursing insulin use status Qualified Code(s): E11.621 - Type 2 diabetes mellitus with foot ulcer; L97.509 - Non-pressure chronic ulcer of other part of unspecified foot with unspecified severity PLAN: Diabetes will be managed by the primary service. PLAN: Plan 1. Discontinue losartan and amlodipine. 2. Hydralazine 25 mg 3 times daily and Isorbid dinitrate 20 mg twice daily. 3. Continue IV Lasix drip. 4. Continue with aggressive treatment of the patient's cellulitis and further evaluation of the sepsis will be did left to the primary service. HPI Consult Data Date of Consult: 02/05/25 HPI Narrative Reason for Consultation: Positive troponins and elevated BNP. HPI Narrative: PRICILA WALDROP, is a 74 F who presents presents with progressive shortness of breath and increasing lower extremity edema. She has had some weeping sores on the lower extremities and they are red and hot. Her BNP is elevated at 30,000 today. On January 29, 2025 her BNP was 3925. The patient's troponins are 218 and 241 on the 1st and 2nd set. The patient's ECG shows sinus tach at 104 bpm and a left bundle branch block which is old. The patient's lactic acid is elevated 2.5 BUN and creatinine are 58 and 2.32 with a potassium of 5.5. Hemoglobin is 8.0 and white count is 20,000. Patient reports she has had shortness of breath and her echocardiogram has shown a deterioration in her LV function. Initially back in 2013 she had an EF of 50% she had a gnosis in the LAD this was a left. She underwent stenting of the obtuse marginal branch in the proximal LAD she had a GI bleed at that time treated with cautery and EGD. Her echocardiogram at that time had drop in EF down to 37% she had evidence of akinesis in the mid posterior wall and hypokinesis of the anterior septal wall. Stress test May 2022 showed an ischemic cardiomyopathy with evidence of a previous infarction and mild godfrey-infarct ischemia and she has been maintained on medical therapy. Patient reports that approximately 6 months ago she started noticing increasing her bilateral lower extremity edema. She was evaluated in the office January 29, 2025 and her weight was up 18 pounds since July 2024. She reports that she was fatigue and described it as just being tired. She has never been evaluated for sleep apnea and did not want to be evaluated because she could not sleep with something on her face. She does report that her shortness of breath has been gradually worsening since July and she cannot sleep lying flat due to shortness of breath. The patient historically has ambulated with a walker and cane at home. She does have what appears to be trauma to the sole of her right lower extremity she reports that she has diabetic neuropathy and has no feeling in her feet. [facility] Medical History Essential hypertension Morbid obesity with BMI of 40.0-44.9, adult Hypothermia Cardiomyopathy Chronic anemia Hypoxia History of diabetes mellitus Acute metabolic encephalopathy due to hypoglycemia History of stroke Chronic kidney disease Altered level of consciousness Non-pressure chronic ulcer of other 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 Chronic kidney disease (CKD) Type 2 diabetes mellitus with hypoglycemia Diabetes mellitus with diabetic polyneuropathy Type 2 diabetes mellitus with foot ulcer Diabetes mellitus with diabetic polyneuropathy Dyspnea Ischemic cardiomyopathy History of CVA (cerebrovascular accident) Atherosclerosis of coronary artery without angina pectoris Type 2 diabetes mellitus Secondary pulmonary arterial hypertension Chronic combined systolic and diastolic CHF (congestive heart failure) Essential hypertension Obesity Chronic kidney disease (CKD) GI bleed (01/2022) Anemia Diabetes mellitus type 2 in obese Hyperlipidemia Home Medications ?Medication ?Instructions ?Recorded ?Last Taken ?Type atorvastatin 40 mg tablet 40 mg PO QHS CHOLESTEROL 02/22/22 Unknown History aspirin 81 mg tablet,delayed 81 mg PO DAILY HEART HEALTH 06/03/22 Unknown History release (Adult Aspirin Regimen) dapagliflozin propanediol 10 mg 10 mg PO DAILY DIABETES #90 tabs 07/12/24 Unknown Rx tablet (Farxiga) blood sugar diagnostic (Accu-Chek 07/13/24 Unknown History Alvina Plus test strips) fluoxetine 10 mg capsule 10 mg PO DAILY DEPERSSION 07/13/24 Unknown History insulin lispro 100 unit/mL 15 unit subcut ACHS DM 07/13/24 Unknown History subcutaneous pen (Humalog KwikPen (U-100) Insulin) amlodipine 5 mg tablet 5 mg PO DAILY HEART #0 tabs 07/18/24 Unknown Rx vitamin B complex (Complex B-100 1 tab PO DAILY HEALTH MAINTENENCE 08/19/24 Unknown History tablet,extended release) carvedilol 12.5 mg tablet 12.5 mg PO BIDCM #30 tabs 08/22/24 Unknown Rx losartan 50 mg tablet 50 mg PO DAILY #30 tabs 08/22/24 Unknown Rx furosemide 40 mg tablet 40 mg PO BID #60 tabs 01/30/25 Unknown Rx metolazone 5 mg tablet 5 mg PO DAILY HE 01/30/25 Unknown History acetaminophen 325 mg tablet 650 mg PO Q6H PRN Pain 1-10 Or 02/05/25 Unknown History Fever >100.7 Allergy/AdvReac Type Severity Reaction Status Date / Time No Known Allergies Allergy Verified 02/05/25 09:50 Family History Father Diabetes Heart disease CAD (coronary artery disease) Mother Heart disease Surgical History History of coronary artery stent placement (09/2013) H/O vein stripping Status post angioplasty with stent Social History household members: family Smoking Status: Former smoker how long ago did patient quit smokin years ago alcohol intake: never substance use type: does not use caffeine: Yes ROS Constitutional Constitutional: Reports as per HPI Eyes Eyes: Reports systems reviewed and no addt'l complaints, except as documented ENT HEENT: Reports systems reviewed and no addt'l complaints, except as documented Cardiovascular Cardiovascular: Reports as per HPI Respiratory/Chest Respiratory/Chest: Reports as per HPI Gastrointestinal Gastrointestinal: Reports systems reviewed and no addt'l complaints, except as documented Genitourinary Genitourinary: Reports as per HPI Musculoskeletal Musculoskeletal: Reports as per HPI Integumentary Integumentary: Reports as per HPI Neurologic Neurologic: Reports as per HPI Psychiatric Psychiatric: Reports systems reviewed and no addt'l complaints, except as documented Endocrine Endocrinology: Reports as per HPI Hematologic/Lymphatic Hematologic/Lymphatic: Reports systems reviewed and no addt'l complaints, except as documented Allergic/Immunologic Allergic/Immunologic: Reports systems reviewed and no addt'l complaints, except as documented Physical Exam Narrative Patient resting at 90 degrees in the bed on BiPAP. She is able to answer short questions. Const alert and oriented x3 HEENT normocephalic Eyes EOMs intact bilaterally Neck Neck Narrative: Thick neck cannot appreciate JVD. Chest Chest Narrative: Increased AP diameter due to body habitus. Resp Effort and Inspection: uses accessory muscles Auscultation: diminished lung sounds diffuse Cardio Cardio Narrative: Distant heart tones due to body habitus. Rate: regular rate Rhythm: regular rhythm Heart Sounds: S1 normal and S2 normal; Negative for click, gallop or murmur GI GI Narrative: Morbidly obese Extremity General Extremity: edema bilateral lower extremity Details: severe Skin Skin Narrative: Erythematous areas on the anterior aspect of both lower extremities group home between the knee down to the foot. Neuro Neuro Narrative: Alert and oriented x 3 Psych mental status grossly normal Risk Stratification Risk Stratification Applicable: Yes Age >/= 65: Yes >/= 3 CAD Risk Factors (HTN, HLD, DM, family hx of CAD, or current smoker): Yes Aspirin Use in the Past 7 Days: Yes Severe Angina (>/= episodes in 24 hours): No EKG ST Changes >/= 0.5mm: No Positive Cardiac Marker: Yes RODRIGO Risk Stratification Score: 4 RODRIGO % Risk: 20% Risk Charges/Coding Visit Charges Inpatient E&M: 59441 Init Hosp L3 Objective Data Vital Signs: Vital Signs Temp Pulse Resp BP Pulse Ox O2 Del Method O2 Flow Rate 97.8 F 87 24 H 142/63 H 100 Bi-pap 6 02/05/25 16:15 02/05/25 16:15 02/05/25 16:15 02/05/25 16:15 02/05/25 16:15 02/05/25 16:31 02/05/25 13:36 FiO2 45 02/05/25 16:15 Oxygen Flow Rate (L/min) 6 Oxygen Delivery Method Bi-pap Weight: 251 lb 9.6 oz Body Mass Index (BMI) 41.2 Intake & Output: Intake and Output for Last 24 Hours 0502/04/25 02/05/25 23:59 23:59 23:59 Intake Total 121.95 / 121.95 Balance 121.95 / 121.95 Lab / Micro Data Attestation: I reviewed the patient's lab results. 02/05/25 09:59 02/05/25 09:59 Labs: Laboratory Results - last 24 hr 02/05/25 09:59: WBC 20.5 H, RBC 3.71 L, Hgb 8.0 L, Hct 27.9 L, MCV 75.2 L, MCH 21.6 L, MCHC 28.7 L, RDW Std Deviation 45.6 H, RDW Coeff of Bulmaro 17.0 H, Plt Count 226, MPV 10.6, Immature Gran % (Auto) 0.600, Neut % (Auto) 89.7 H, Lymph % (Auto) 2.5 L, Bland % (Auto) 6.9, Eos % (Auto) 0.0, Baso % (Auto) 0.3, Absolute Neuts (auto) 18.4 H, Absolute Lymphs (auto) 0.51 L, Nucleated RBC % 0, PT 17.1 H, INR 1.4, APTT 31.7, Sodium 135, Potassium 5.5 H, Chloride 100, Carbon Dioxide 15.7 L, Anion Gap 19 H, BUN 58 H, Creatinine 2.32 H, Estim Creat Clear Calc 17.07 L, Est GFR (MDRD) Non-Af 21 L, BUN/Creatinine Ratio 24.9 H, Glucose 259 H, Lactic Acid 2.5 H*, Calcium 9.1 02/05/25 10:47: Troponin T High Sens 218 H*, [place] [address] H 02/05/25 11:20: Urine Color Yellow, Urine Clarity Clear, Urine pH 5.0, Ur Specific [place] 1.025, Urine Protein 30 H, Urine Glucose (UA) 100 H, Urine Ketones Negative, Urine Occult Blood 10 H, Urine Nitrite Negative, Urine Bilirubin Negative, Urine Urobilinogen Normal, Ur Leukocyte Esterase 500 H, Urine RBC 0 SEEN, Urine WBC 10-25 SEEN, Ur Squamous Epith Cells 0 SEEN, Urine Bacteria 0 SEEN, Urine Mucus 0 SEEN 02/05/25 13:03: Phosphorus 6.1 H, Magnesium 2.6 H, Troponin T Hi Sens 2 Hr 241 H* 02/05/25 16:08: Lactic Acid 1.8 02/05/25 17:06: POC Glucose 217 H ABG Data ABG results: ABG 02/05/25 15:13 Specimen Type ART Sample Site R Radial pH 7.21 L Bicarbonate Actual 20.3 L Total CO2 22 Base Excess -8 L O2 Saturation 98 O2 % 60.0 ABG pCO2 50.7 H ABG pO2 133 H Harvey Test Positive O2 Delivery Device BiPAP Vent Mode Not entered Rhythm Strip Rhythm Strip: Sinus Rhythm Rate: 84 Cardiology Labs/Tests 02/05/25 09:59: WBC 20.5 H, RBC 3.71 L, Hgb 8.0 L, Hct 27.9 L, MCV 75.2 L, MCH 21.6 L, MCHC 28.7 L, Plt Count 226, MPV 10.6, Immature Gran % (Auto) 0.600, Neut % (Auto) 89.7 H, Lymph % (Auto) 2.5 L, Bland % (Auto) 6.9, Eos % (Auto) 0.0, Baso % (Auto) 0.3, Absolute Neuts (auto) 18.4 H, Nucleated RBC % 0, PT 17.1 H, INR 1.4, APTT 31.7, Sodium 135, Potassium 5.5 H, Chloride 100, Carbon Dioxide 15.7 L, Anion Gap 19 H, BUN 58 H, Creatinine 2.32 H, Est GFR (MDRD) Non-Af 21 L, BUN/Creatinine Ratio 24.9 H, Glucose 259 H, Lactic Acid 2.5 H*, Calcium 9.1 02/05/25 11:20: Urine Color Yellow, Urine Clarity Clear, Urine pH 5.0, Ur Specific [place] 1.025, Urine Protein 30 H, Urine Glucose (UA) 100 H, Urine Ketones Negative, Urine Occult Blood 10 H, Urine Nitrite Negative, Urine Bilirubin Negative, Urine Urobilinogen Normal, Ur Leukocyte Esterase 500 H, Urine RBC 0 SEEN, Urine WBC 10-25 SEEN 02/05/25 13:03: Phosphorus 6.1 H, Magnesium 2.6 H 02/05/25 15:13: pH 7.21 L, Bicarbonate Actual 20.3 L, Base Excess -8 L, O2 Saturation 98, ABG pCO2 50.7 H, ABG pO2 133 H, Harvey Test Positive 02/05/25 16:08: Lactic Acid 1.8 Rhythm: EKG: ECHO: Stress Test: Cardiac Cath: PCI: CT Surgery: Holter monitor: EPS: PPM: CXR: Chest CT Scan: Radiography Diagnostic Testing: Radiology Impression Chest X-Ray 02/05/25 11:10 IMPRESSION: Cardiomegaly and CHF. Blunting of both costophrenic angles. Reading Location: [id number]
[2025-02-05 17:49] LABS: Troponin T High Sens 4 HR 270 ng/L (<=14)
[2025-02-05] MEDS: Insulin Lispro 100 UNIT/ML INSULN.PEN 15 UNIT SC ×2 (18:42→21:42)
[2025-02-05] MEDS: Atorvastatin Calcium 40 MG Tablet PO (21:42)
[2025-02-05] MEDS: Carvedilol 6.25 MG Tablet PO (21:43)
[2025-02-06] VITALS (23 sets, daily range): BP systolic 92–123; BP diastolic 45–73; PULSE 79–107; RESP 12–30; TEMP 36.3–36.8; O2SAT 30–98; BMI 41.5
[2025-02-06] MEDS: hydrOXYzine 50 MG/ML Vial IM (00:42)
[2025-02-06 04:35] LABS: Absolute Lymphocyte Count 0.77 X10^3/uL (0.83-4.51); Absolute Neutrophil Count 9.6 X10^3/uL (2.0-7.7); Basophil# 0.04 X10^3/uL; Basophil% 0.3 % (0-1); Eosinophil# 0.08 X10^3/uL; Eosinophils% 0.7 % (0-5); Hematocrit 24.8 % (37-47); Hemoglobin 7.2 g/dL (12.0-15.0); Lymphocyte # 0.77 X10^3/ul (0.83-4.51); Lymphocyte % 6.6 % (19-41); Mean Corpuscular Hgb 21.7 pg (27.0-32.0); Mean Corpuscular Volume 74.7 fL (81-99); Monocyte# 1.12 X10^3/uL; Monocyte% 9.6 % (0-10); NRBC Flagged by Analyzer 0 % (0-5); Neutrophil # 9.63 X10^3/uL (2.7-7.7); Neutrophil % 82.3 % (47-70); Platelet Count 267 K/mm3 (150-450); RBC Distribution Width CV 16.4 % (11.6-14.6); RBC Distribution Width SD 44.5 fl (35.1-43.9); Red Blood Count 3.32 M/mm3 (4.2-5.4); White Blood Count 11.7 K/mm3 (4.4-11.0)
[2025-02-06 05:04] LABS: Anion Gap 13 (5-15); BUN 70 mg/dL (4-19); BUN/Creat Ratio 28.4 RATIO (10-20); Chloride 104 mmol/L (98-108); Cholesterol 119 mg/dL (<=200); Creatinine, Serum 2.45 mg/dL (0.70-1.20); EST Glomerular Filtration Rate 20 (>60); Estimated Creatinine Clearance 24.62 ml/min (50-250); Glucose 131 mg/dL (70-99); High Density Lipoprotein 37 mg/dL; Low Density Lipoprotein Calc. 69 mg/dL; Potassium 4.9 mmol/L (3.3-5.1); Sodium Level 137 mmol/L (133-145); Triglycerides 65 mg/dL; Very Low Density Lipoprotein 13 mg/dL (5-40)
--- NOTE | 2025-02-06 06:38 | NURSING ---
Patient refused bipap. This RN educated pt on the importance of wearing bipap and pt still refused. She did wear for most of the night and seems to be breathing easier than start of shift.
--- NOTE | 2025-02-06 08:06 | PN.CARD_ITS ---
Subjective Subjective Patient now resting in the bed on nasal cannula but still somewhat tachypneic. She is off BiPAP. Urine output is only been 300 cc overnight. BUN and creatinine have continued to go up slightly. The patient has received 1 dose of Coreg but has not received any of the hydralazine and nitrates due to soft blood pressures. Objective Data Vital Signs: Vital Signs Temp Pulse Resp BP Pulse Ox O2 Del Method O2 Flow Rate 98.1 F 105 H 25 H 107/55 L 96 Nasal Cannula 4 02/06/25 07:00 02/06/25 07:00 02/06/25 07:00 02/06/25 07:00 02/06/25 07:00 02/06/25 07:00 02/06/25 07:00 FiO2 30 02/06/25 05:00 Oxygen Flow Rate (L/min) 4 Oxygen Delivery Method Nasal Cannula Weight: 253 lb 4.978 oz Body Mass Index (BMI) 41.5 Intake & Output: Intake and Output for Last 24 Hours 02/04/25 02/05/25 02/06/25 23:59 23:59 23:59 Intake Total 202.95 / 202.95 105 / 105 Output Total 130 / 305 325 / 325 Balance 72.95 / -102.05 -220 / -220 Lab / Micro Data Attestation: I reviewed the patient's lab results. 02/06/25 04:20 02/06/25 04:20 Labs: Laboratory Results - last 24 hr 02/05/25 09:59: WBC 20.5 H, RBC 3.71 L, Hgb 8.0 L, Hct 27.9 L, MCV 75.2 L, MCH 21.6 L, MCHC 28.7 L, RDW Std Deviation 45.6 H, RDW Coeff of Bulmaro 17.0 H, Plt Count 226, MPV 10.6, Immature Gran % (Auto) 0.600, Neut % (Auto) 89.7 H, Lymph % (Auto) 2.5 L, [place] % (Auto) 6.9, Eos % (Auto) 0.0, Baso % (Auto) 0.3, Absolute Neuts (auto) 18.4 H, Absolute Lymphs (auto) 0.51 L, Nucleated RBC % 0, PT 17.1 H , INR 1.4, APTT 31.7, Sodium 135, Potassium 5.5 H, Chloride 100, Carbon Dioxide 15.7 L, Anion Gap 19 H, BUN 58 H, Creatinine 2.32 H, Estim Creat Clear Calc 17.07 L, Est GFR (MDRD) Non-Af 21 L, BUN/Creatinine Ratio 24.9 H, Glucose 259 H, Lactic Acid 2.5 H*, Calcium 9.1 02/05/25 10:47: Troponin T High Sens 218 H*, [place] [address] H 02/05/25 11:20: Urine Color Yellow, Urine Clarity Clear, Urine pH 5.0, Ur Specific [place] 1.025, Urine Protein 30 H, Urine Glucose (UA) 100 H, Urine Ketones Negative, Urine Occult Blood 10 H, Urine Nitrite Negative, Urine Bilirubin Negative, Urine Urobilinogen Normal, Ur Leukocyte Esterase 500 H, Urine RBC 0 SEEN, Urine WBC 10-25 SEEN, Ur Squamous Epith Cells 0 SEEN, Urine Bacteria 0 SEEN, Urine Mucus 0 SEEN 02/05/25 13:03: Phosphorus 6.1 H, Magnesium 2.6 H, Troponin T Hi Sens 2 Hr 241 H* 02/05/25 16:08: Lactic Acid 1.8 02/05/25 16:50: Troponin T Hi Sens 4Hr 270 H* 02/05/25 17:06: POC Glucose 217 H 02/06/25 04:20: WBC 11.7 H, RBC 3.32 L, Hgb 7.2 L, Hct 24.8 L, MCV 74.7 L, MCH 21.7 L, MCHC 29.0 L, RDW Std Deviation 44.5 H, RDW Coeff of [place]maro 16.4 H, Plt Count 267, MPV 10.0, Immature Gran % (Auto) 0.500, Neut % (Auto) 82.3 H, Lymph % (Auto) 6.6 L, [place] % (Auto) 9.6, Eos % (Auto) 0.7, Baso % (Auto) 0.3, Absolute Neuts (auto) 9.6 H, Absolute Lymphs (auto) 0.77 L, Nucleated RBC % 0, Sodium 137, Potassium 4.9, Chloride 104, Carbon Dioxide 20.0 L, Anion Gap 13, BUN 70 H, Creatinine 2.45 H, Estim Creat Clear Calc 24.62 L, Est GFR (MDRD) Non-Af 20 L, B UN/Creatinine Ratio 28.4 H, Glucose 131 H, Calcium 9.0, Triglycerides 65, Cholesterol 119, LDL Cholesterol, Calc 69, VLDL Cholesterol 13, HDL Cholesterol 37 L, Cholesterol/HDL Ratio 3.20, TSH 3.320 Micro: Microbiology 02/05/25 16:50 Nasal Secretion MRSA (PCR) - Final 02/05/25 16:50 Wound - Leg, Left Skin and Soft Tissue MRSA/MSSA (PCR - Final ABG Data ABG results: ABG 02/05/25 15:13 Specimen Type ART Sample Site R Radial pH 7.21 L Bicarbonate Actual 20.3 L Total CO2 22 Base Excess -8 L O2 Saturation 98 O2 % 60.0 ABG pCO2 50.7 H ABG pO2 133 H Harvey Test Positive O2 Delivery Device BiPAP Vent Mode Not entered Rhythm Strip Rhythm Strip: Sinus Rhythm Rate: 104 Cardiology Labs/Tests 02/05/25 09:59: WBC 20.5 H, RBC 3.71 L, Hgb 8.0 L, Hct 27.9 L, MCV 75.2 L, MCH 21.6 L, MCHC 28.7 L, Plt Count 226, MPV 10.6, Immature Gran % (Auto) 0.600, Neut % (Auto) 89.7 H, Lymph % (Auto) 2.5 L, [place] % (Auto) 6.9, Eos % (Auto) 0.0, Baso % (Auto) 0.3, Absolute Neuts (auto) 18.4 H, Nucleated RBC % 0, PT 17.1 H, INR 1.4, APTT 31.7, Sodium 135, Potassium 5.5 H, Chloride 100, Carbon Dioxide 15.7 L , Anion Gap 19 H, BUN 58 H, Creatinine 2.32 H, Est GFR (MDRD) Non-Af 21 L, B UN/Creatinine Ratio 24.9 H, Glucose 259 H, Lactic Acid 2.5 H*, Calcium 9.1 02/05/25 11:20: Urine Color Yellow, Urine Clarity Clear, Urine pH 5.0, Ur Specific [place] 1.025, Urine Protein 30 H, Urine Glucose (UA) 100 H, Urine Ketones Negative, Urine Occult Blood 10 H, Urine Nitrite Negative, Urine Bilirubin Negative, Urine Urobilinogen Normal, Ur Leukocyte Esterase 500 H, Urine RBC 0 SEEN, Urine WBC 10-25 SEEN 02/05/25 13:03: Phosphorus 6.1 H, Magnesium 2.6 H 02/05/25 15:13: pH 7.21 L, Bicarbonate Actual 20.3 L, Base Excess -8 L, O2 Saturation 98, ABG pCO2 50.7 H, ABG pO2 133 H, Harvey Test Positive 02/05/25 16:08: Lactic Acid 1.8 02/06/25 04:20: WBC 11.7 H, RBC 3.32 L, Hgb 7.2 L, Hct 24.8 L, MCV 74.7 L, MCH 21.7 L, MCHC 29.0 L, Plt Count 267, MPV 10.0, Immature Gran % (Auto) 0.500, Neut % (Auto) 82.3 H, Lymph % (Auto) 6.6 L, [place]ricks % (Auto) 9.6, Eos % (Auto) 0.7, Baso % (Auto) 0.3, Absolute Neuts (auto) 9.6 H, Nucleated RBC % 0, Sodium 137, Potassium 4.9, Chloride 104, Carbon Dioxide 20.0 L, Anion Gap 13, BUN 70 H, C reatinine 2.45 H, Est GFR (MDRD) Non-Af 20 L, BUN/Creatinine Ratio 28.4 H, G lucose 131 H, Calcium 9.0, Triglycerides 65, Cholesterol 119, VLDL Cholesterol 13, HDL Cholesterol 37 L, Cholesterol/HDL Ratio 3.20 Rhythm: EKG: ECHO: Stress Test: Cardiac Cath: PCI: CT Surgery: Holter monitor: EPS: PPM: CXR: Chest CT Scan: Radiography Diagnostic Testing: Radiology Impression Chest X-Ray 02/05/25 11:10 IMPRESSION: Cardiomegaly and CHF. Blunting of both costophrenic angles. Reading Location: [facility] Physical Exam Const alert and oriented x3 HEENT normocephalic Eyes EOMs intact bilaterally Neck Neck Narrative: Appears to have JVD just above the clavicle at 90 degrees. Her neck is very thick. Chest inspection of chest normal Resp Effort and Inspection: uses accessory muscles Auscultation: diminished lung sounds diffuse Cardio Cardio Narrative: Very distant heart tones due to increased AP diameter and body habitus. Rate: tachycardic Rhythm: regular rhythm Heart Sounds: S1 normal and S2 normal; Negative for click, gallop or murmur GI soft to palpation GI Narrative: Morbidly obese Extremity General Extremity: edema bilateral lower extremity Details: severe Skin Skin Narrative: Erythematous changes in the bilateral lower extremities Neuro Neuro Narrative: Alert and oriented x 3 Psych mental status grossly normal Assessment & Plan Assessment/Plan (1) Acute on chronic combined systolic (congestive) and diastolic (congestive) heart failure: PLAN: Patient's urine output has been a little over 300 cc over the last 12 hours. She has been on IV Lasix drip. BUN and creatinine have increased slightly to 70 and 2.45 respectively. GFR estimated at 20. Her BNP has dropped from 39,000 down to 29,000 822. Blood pressures remain relatively soft. Currently is 110/55 with a heart rate of 104. Respiratory rate is still tachypneic at 25 she is 96% saturated on 4 L. Patient's last echocardiogram in February 2024 revealed segmental wall motion abnormality and EF 35%. Will repeat the patient's echocardiogram. We have discontinued her ARB therapy yesterday. She has yet to receive any hydralazine or nitrates due to low blood pressure. She did receive half dose of her home Coreg at 6.25 mg twice daily which she tolerated. I will adjust the dosing of hydralazine and nitrates downward and change the hold parameters to her blood pressure of 95 or greater. (2) Chronic kidney disease (CKD): QUALIFIERS: Chronic kidney disease stage: stage 4 (GFR 15-29) Q ualified Code(s): N18.4 - Chronic kidney disease, stage 4 (severe) PLAN: Nephrology has been consulted. Historically the patient's creatinine is running in the 2.0 range. Today it is up to 2.45 with a BUN of 70. I do believe that we can increase her cardiac output this will be of some benefit. Therefore we will try to add some afterload reduction therapy. Her low blood pressure also may be related to what appeared to be a septic picture when she came in with elevated lactic acid and white blood cell count of 20,000. Her WBCs are down to 11.7 and her lactic acid has normalized. (3) Atherosclerosis of coronary artery without angina pectoris: QUALIFIERS: Coronary Disease-Associated Artery/Lesion type: [place] artery [place] vs. transplanted heart: [place] heart Qualified Code(s): I25.10 - Atherosclerotic heart disease of [place] coronary artery without angina pectoris PLAN: Patient denies any anginal type symptoms. PLAN: Plan 1. Will decrease hydralazine and nitrate dosing to try to get at least some afterload reduction therapy as her blood pressure will tolerate. 2. Continue with IV Lasix and follow nephrology's guide on further diuresis. 3. Would consider transfusion given her hemoglobin of 7 in the face of her respiratory and cardiovascular and renal issues. Charges/Coding Visit Charges Inpatient E&M: 03209 Subs Hosp L3
--- NOTE | 2025-02-06 08:26 | PN.HOSP_ITS ---
Reason for Visit Reason for Visit: Diagnoses Type 2 diabetes mellitus with foot ulcer (02/05/25) Mixed hyperlipidemia (02/05/25) Essential (primary) hypertension (02/05/25) Atherosclerotic heart disease of [place] coronary artery without angina pectoris (02/05/25) Acute on chronic combined systolic (congestive) and diastolic (congestive) heart failure (02/05/25) Cellulitis of right lower limb (02/05/25) Non-pressure chronic ulcer of other part of unspecified foot with unspecified severity (02/05/25) Chronic kidney disease, stage 4 (severe) (02/05/25) Other specified abnormal findings of blood chemistry (02/05/25) Objective Data Objective Data Vital Signs: Vital Signs Temp Pulse Resp BP Pulse Ox O2 Del Method O2 Flow Rate 98.1 F 105 H 25 H 107/55 L 96 Nasal Cannula 4 02/06/25 07:00 02/06/25 07:00 02/06/25 07:00 02/06/25 07:00 02/06/25 07:00 02/06/25 07:00 02/06/25 07:00 FiO2 30 02/06/25 05:00 Oxygen Flow Rate (L/min) 4 Oxygen Delivery Method Nasal Cannula Weight: 253 lb 4.978 oz Body Mass Index (BMI) 41.5 Intake & Output: Intake and Output for Last 24 Hours 02/04/25 02/05/25 02/06/25 23:59 23:59 23:59 Intake Total 202.95 / 202.95 105 / 105 Output Total 130 / 305 325 / 325 Balance 72.95 / -102.05 -220 / -220 Lab / Micro Data 02/06/25 04:20 02/06/25 04:20 Labs: Laboratory Results - last 24 hr 02/05/25 09:59: WBC 20.5 H, RBC 3.71 L, Hgb 8.0 L, Hct 27.9 L, MCV 75.2 L, MCH 21.6 L, MCHC 28.7 L, RDW Std Deviation 45.6 H, RDW Coeff of Bulmaro 17.0 H, Plt Count 226, MPV 10.6, Immature Gran % (Auto) 0.600, Neut % (Auto) 89.7 H, Lymph % (Auto) 2.5 L, Wallace % (Auto) 6.9, Eos % (Auto) 0.0, Baso % (Auto) 0.3, Absolute Neuts (auto) 18.4 H, Absolute Lymphs (auto) 0.51 L, Nucleated RBC % 0, PT 17.1 H , INR 1.4, APTT 31.7, Sodium 135, Potassium 5.5 H, Chloride 100, Carbon Dioxide 15.7 L, Anion Gap 19 H, BUN 58 H, Creatinine 2.32 H, Estim Creat Clear Calc 17.07 L, Est GFR (MDRD) Non-Af 21 L, BUN/Creatinine Ratio 24.9 H, Glucose 259 H, Lactic Acid 2.5 H*, Calcium 9.1 02/05/25 10:47: Troponin T High Sens 218 H*, [place] [address] H 02/05/25 11:20: Urine Color Yellow, Urine Clarity Clear, Urine pH 5.0, Ur Specific [place] 1.025, Urine Protein 30 H, Urine Glucose (UA) 100 H, Urine Ketones Negative, Urine Occult Blood 10 H, Urine Nitrite Negative, Urine Bilirubin Negative, Urine Urobilinogen Normal, Ur Leukocyte Esterase 500 H, Urine RBC 0 SEEN, Urine WBC 10-25 SEEN, Ur Squamous Epith Cells 0 SEEN, Urine Bacteria 0 SEEN, Urine Mucus 0 SEEN 02/05/25 13:03: Phosphorus 6.1 H, Magnesium 2.6 H, Troponin T Hi Sens 2 Hr 241 H* 02/05/25 16:08: Lactic Acid 1.8 02/05/25 16:50: Troponin T Hi Sens 4Hr 270 H* 02/05/25 17:06: POC Glucose 217 H 02/06/25 04:20: WBC 11.7 H, RBC 3.32 L, Hgb 7.2 L, Hct 24.8 L, MCV 74.7 L, MCH 21.7 L, MCHC 29.0 L, RDW Std Deviation 44.5 H, RDW Coeff of Bulmaro 16.4 H, Plt Count 267, MPV 10.0, Immature Gran % (Auto) 0.500, Neut % (Auto) 82.3 H, Lymph % (Auto) 6.6 L, Wallace % (Auto) 9.6, Eos % (Auto) 0.7, Baso % (Auto) 0.3, Absolute Neuts (auto) 9.6 H, Absolute Lymphs (auto) 0.77 L, Nucleated RBC % 0, Sodium 137, Potassium 4.9, Chloride 104, Carbon Dioxide 20.0 L, Anion Gap 13, BUN 70 H, Creatinine 2.45 H, Estim Creat Clear Calc 24.62 L, Est GFR (MDRD) Non-Af 20 L, B UN/Creatinine Ratio 28.4 H, Glucose 131 H, Calcium 9.0, Triglycerides 65, Cholesterol 119, LDL Cholesterol, Calc 69, VLDL Cholesterol 13, HDL Cholesterol 37 L, Cholesterol/HDL Ratio 3.20, TSH 3.320 Micro: Microbiology 02/05/25 16:50 Nasal Secretion MRSA (PCR) - Final 02/05/25 16:50 Wound - Leg, Left Skin and Soft Tissue MRSA/MSSA (PCR - Final ABG Data ABG results: ABG 02/05/25 15:13 Specimen Type ART Sample Site R Radial pH 7.21 L Bicarbonate Actual 20.3 L Total CO2 22 Base Excess -8 L O2 Saturation 98 O2 % 60.0 ABG pCO2 50.7 H ABG pO2 133 H Harvey Test Positive O2 Delivery Device BiPAP Vent Mode Not entered Radiography Diagnostic Testing: Radiology Impression Chest X-Ray 02/05/25 11:10 IMPRESSION: Cardiomegaly and CHF. Blunting of both costophrenic angles. Reading Location: [facility] Rhythm Strip Rhythm Strip: Sinus Rhythm Rate: 104 Physical Exam Narrative Seen and examined Patient is feeling better than yesterday. Off BiPAP. On further history states that she denies burning micturition. Bowel movement regular. She had mild chest discomfort but denied anginal-like symptoms or pressure. Dyspnea better General: Awake, fatigued, fatigued HEENT: Atraumatic, PERRLA, EOMI, Normocephalic. Oral: Oral mucosa dry, deep oropharyngeal structures could not be visualized Neck: Supple, elevated BL JVD, Negative Carotid Bruits Chest wall/Lungs: Air entry severely diminished in all lung kiran. Mild bilateral coarse crepitation Cardiovascular: Sinus, Normal S1,S2, No M/G/R Abdomen: Bowel Sounds Present, Soft, Non Tender, Non-Distended : No dysuria. No renal angle tenderness. No suprapubic tenderness. Extremities: 3+ bilateral pitting edema, Capillary Refill Less than 3 Seconds Skin: Healing superficial scratch/ulcer over lateral aspect of right leg with surrounding contiguous cellulitis Musculoskeletal: No Tenderness to Palpation of Joints or Extremities. ROM restricted Neurological: Cranial nerves II-XII grossly intact, DTR 2+/4. No acute focal neurological deficit. Psych/Mental Status: Flat affect. Assessment & Plan Assessment/Plan (1) Acute on chronic combined systolic (congestive) and diastolic (congestive) heart failure: (2) Cellulitis of right anterior lower leg: PLAN: Plan This 74-year-old female is being admitted for extreme dyspnea at rest/shortness of breath and bilateral lower extremity edema consistent with acute on chronic heart failure 1. Acute on chronic combined respiratory failure due to heart failure exacerbation: The patient is being admitted in ICU on BiPAP. ABG stat ordered. Discussed with the ED physician to watch for half an hour if she does not improve will need intubation prior to transfer to ICU. Currently on 6 L of oxygen. Lactic acidosis most likely due to pulmonary edema/hypoxia. Patient does not have signs and symptoms of sepsis. The patient not on home oxygen or NIPPV at home 02/06: ABG 7.21/50.7/133 at BiPAP 60% FiO2. Bicarb 22.Bicarb in BMP was 15.7 on 02/05. Probably bicarb and BMP are normal. Today's bicarb is 20. Continue BiPAP intermittently 2. Acute on chronic combined heart failure: BNP about 30,000. Chest x-ray initially reviewed and shows pulmonary edema, cardiomegaly and blunting of both CP angles. Twelve-lead EKG sinus tachycardia, 104 bpm, QRS 168, QTc 531 ms. LBBB. 02/06: Total urine output 455 mL, 325 since last night. Discussed with the supervisor microbiology technologists. Continue the same regimen 3. Elevated troponin probably due to increased cardiac demand with suspicion of possible non-STEMI: Patient complained of nondescriptive chest pain. Lesion discussed with supervisor microbiology technologists Dr. Cardona. Recommended enoxaparin 1 dose. Troponin 218, 241. Third troponin pending. EKG as described above. Patient has CAD status post stents, on aspirin and statin. Hold carvedilol because of CHF exacerbation/fluid overload and resume once euvolemic. Last echo in February 2024 shows EF 35%, moderately severe segmental systolic dysfunction, stage I diastolic dysfunction. Mitral valve, tricuspid valve reported normal. She had Lasix 40 mg IV in ED. 1 more dose of Lasix 40 mg IV stat, then started on Lasix drip. Heart failure core measures including intake and output, fluid restriction less than 1500 mL, daily weight monitoring, kidney and electrolytes monitoring. Repeat 2D echo. Supervisor Shearing consulted from ED physician 02/06: Third troponin 270. Supervisor Shearing will resume carvedilol at lower dose. On hydralazine and nitrate low-dose ELIDA on CKD stage IV: Patient baseline creatinine runs around 2.0 as in January 2025. Admitting BUN/creatinine 58/2.32 therefore ELIDA on CKD stage IV. Web Machine Tender consulted. Patient has hyperkalemia, 5.5, high anion gap metabolic acidosis, AG 19, bicarb 15. ABG ordered as mentioned above. Kayexalate and hyperkalemia cocktail ordered. Repeat BMP after 4 hours. Hold losartan metolazone. 02/06: BUN/creatinine 70/2.45. Continue furosemide drip. Web Machine Tender on board. 4. Chronic severe anemia: H&H 8.0/27.9%. MCV 75 RDW elevated 17.0. Possible chronic iron deficiency anemia. Monitor CBC. Iron workup ordered for tomorrow a.m. 5. DM type II: Last A1c 5.2% in July 2024. Accu-Chek before meals and at bedtime with Humalog sliding scale coverage and hypoglycemia protocol. Most recent glucoses elevated, 259 BMP 6. Chronic bilateral fifth metatarsal excision: Superficial ulcer of left lateral leg and contiguous cellulitis: MRSA wound and nasal screen ordered. IV cefazolin given in ED. IV ceftriaxone ordered 7. Past history of CVA: History of remote left lacunar infarct. On aspirin and statin, continued 8. Morbid obesity: Current weight 116 pounds, BMI 20.6 kg/m?. I think this is wrong/error reading of her weight as her BMI is 43.5 kg/m? in July 2024 and she looks more swollen edematous and heavy weight. 9. Depression and anxiety: On Flexotard continue 10. DVT prophylaxis on therapeutic dose of Lovenox Living will/advanced directive/end of life care: Patient does not have living will or advanced directive. After discussion of benefits/risks procedures involved with full code, DNR CC arrest and DNR CC, the patient opted for full code. Patient does want artificial life support including intubation, tube feed, ventilator and/chest compression, central venous catheter, vasopressor and DC shock if needed Total time spent in [id number] encounter in discussion of advanced directive 17 minutes. Clinical Impression(s) from Imaging Studies Chest X-Ray 02/05/25 11:10 IMPRESSION: Cardiomegaly and CHF. Blunting of both costophrenic angles. Reading Location: [facility] Charges/Coding Visit Charges Inpatient E&M: 41643 Subs Hosp L2
[2025-02-06] MEDS: Insulin Lispro 100 UNIT/ML INSULN.PEN 15 UNIT SC ×2 (08:31→21:28)
--- NOTE | 2025-02-06 10:02 | WOUNDNOTE ---
skin photo: left lower leg
--- NOTE | 2025-02-06 10:03 | WOUNDNOTE ---
skin photo: right lower leg
--- NOTE | 2025-02-06 10:04 | WOUNDNOTE ---
wound photo: right foot
--- NOTE | 2025-02-06 10:04 | WOUNDNOTE ---
wound photo: left foot
[2025-02-06] MEDS: metOLazone 5 MG Tablet PO (10:14)
[2025-02-06] MEDS: Ceftriaxone 1 GM/50 ML BAG IV (10:14)
[2025-02-06] MEDS: hydrALAZINE 10 MG Tablet PO ×3 (10:15→21:27)
[2025-02-06] MEDS: Isosorbide DN 10 MG Tablet 5 MG PO ×2 (10:15→21:27)
[2025-02-06] MEDS: FLUoxetine 10 MG Capsule PO (10:16)
[2025-02-06] MEDS: Carvedilol 6.25 MG Tablet PO (10:16)
[2025-02-06] MEDS: Aspirin E.C. 81 MG Tablet PO (10:16)
--- NOTE | 2025-02-06 10:52 | CASEMGMT ---
YRNE PICHARDO Assessment Face to Face with patient for initial transition planning/care coordination assessment. RYNE PICHARDO introduced self and role at [facility], pt voices understanding. Pt is A&Ox4 and is resting comfortably in bed and is calm. Care providers, pharmacy, and demographics verified. Admitting dx: CHF Exacerbation, Right Leg Ulcer LACE Strata: 3 PCP: Nabor James Specialists: Rip (Podiatry), SHERWIN (Cardio) Preferred Pharmacy: [facility] Insurance: [facility] Prescription Benefit: Yes LNOK: Yamil (H)Marcell (Son) Living Arrangements: Pt lives with her in a raised ranch style home with 12 steps to enter with a handrail. Pt states that her son lives within walking distance. ADLs/IADLs: Pt states that she is unable to care for herself at this time and has been receiving help from her and son as needed Transportation: Pt and pt's do not drive. Pt's son drives DME: Functioning BGM with sufficient supplies and insulin pen needles. Cane. FWW. Shower chair. BSC. raised toilet seat. grab bars. W/C. Pt denies home oxygen use. Pt is currently requiring additional oxygen and may qualify for home oxygen use. A verbal list of local in-network DME companies were provided to the pt at this time. Pt prefers [facility]. Per ICU rounds, pt was wearing a PAP machine overnight but was refusing use this morning. Pt may benefit from an OP sleep study after DC. HHC/SNF: History with [facility] HH. History @ [facility] and [facility] Pt has been to the [facility] before under Dr Erwin's care Pt?s goal: TBD Plan: TBD. Anticipate SNF vs home with [facility]. At this time, the pt denies a Palliative Care referral regarding her CHF. Pt states, Maybe later. Current 6-Click score is 12. PT/OT pending. At this time, the pt reports that she does not feel safe returning home in her current condition and would like to see how she progresses during her hospital stay prior to solidifying DC plans. Pt appears open to SNF placement if warranted. Pt educated that CM can provide the pt with a list of SNF that are in-network with her insurance. Pt states understanding. If pt were to DC home once medically ready, follow for HH, [facility] needs, new O2, and potential Palliative care. Pt denies further questions or concerns at this time. Choco Luna RN CM
[2025-02-06 11:41] LABS: Bedside Glucose 171 mg/dL (74-106)
[2025-02-06 11:42] LABS: Bedside Glucose 124 mg/dL (74-106)
[2025-02-06 16:32] LABS: Bedside Glucose 111 mg/dL (74-106)
--- NOTE | 2025-02-06 21:06 | PCM.CONS.R ---
Assessment & Plan Assessment/Plan (1) Chronic kidney disease (CKD): QUALIFIERS: Chronic kidney disease stage: stage 4 (GFR 15-29) Qualified Code(s): N18.4 - Chronic kidney disease, stage 4 (severe) PLAN: History of CKD stage IIIb, baseline creatinine around 1.8-2.0. Urine analysis with 1+ protein, leukocytes. Morillo indwelling, obstruction unlikely. Presented with shortness of breath. Chest x-ray looks pretty wet. Overnight she has been on Lasix drip 10 mg/h, not much urine output. Will increase Lasix drip to 20 mg/h. Add metolazone. Echocardiogram reviewed, low ejection fraction of 15%. Cardiology on consult. HPI Consult Data Date of Consult: 02/06/25 HPI Narrative Reason for Consultation: ELIDA HPI Narrative: PRICILA WALDROP, is a 74 F who presents To the hospital with shortness of breath. Nephrology on consultation in view of acute renal failure on CKD stage IIIb. It seems she has known history of CKD stage IIIb, baseline creatinine around 2.0. Presented with shortness of breath, has moderate lower extremity edema. Chest x-ray was fairly wet looking. Was on BiPAP yesterday. This morning she is off BiPAP, nasal cannula. Not much urine output overnight. She has been on Lasix drip 10 mg/h. [facility] Medical History Essential hypertension Morbid obesity with BMI of 40.0-44.9, adult Hypothermia Cardiomyopathy Chronic anemia Hypoxia History of diabetes mellitus Acute metabolic encephalopathy due to hypoglycemia History of stroke Chronic kidney disease Altered level of consciousness Non-pressure chronic ulcer of other 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 Chronic kidney disease (CKD) Type 2 diabetes mellitus with hypoglycemia Diabetes mellitus with diabetic polyneuropathy Type 2 diabetes mellitus with foot ulcer Diabetes mellitus with diabetic polyneuropathy Dyspnea Ischemic cardiomyopathy History of CVA (cerebrovascular accident) Atherosclerosis of coronary artery without angina pectoris Type 2 diabetes mellitus Secondary pulmonary arterial hypertension Chronic combined systolic and diastolic CHF (congestive heart failure) Essential hypertension Obesity Chronic kidney disease (CKD) GI bleed (01/2022) Anemia Diabetes mellitus type 2 in obese Hyperlipidemia Home Medications ?Medication ?Instructions ?Recorded ?Last Taken ?Type atorvastatin 40 mg tablet 40 mg PO QHS CHOLESTEROL 02/22/22 Unknown History aspirin 81 mg tablet,delayed 81 mg PO DAILY HEART HEALTH 06/03/22 Unknown History release (Adult Aspirin Regimen) dapagliflozin propanediol 10 mg 10 mg PO DAILY DIABETES #90 tabs 07/12/24 Unknown Rx tablet (Farxiga) blood sugar diagnostic (Accu-Chek 07/13/24 Unknown History Alvina Plus test strips) fluoxetine 10 mg capsule 10 mg PO DAILY DEPERSSION 07/13/24 Unknown History insulin lispro 100 unit/mL 15 unit subcut ACHS DM 07/13/24 Unknown History subcutaneous pen (Humalog KwikPen (U-100) Insulin) amlodipine 5 mg tablet 5 mg PO DAILY HEART #0 tabs 07/18/24 Unknown Rx vitamin B complex (Complex B-100 1 tab PO DAILY HEALTH MAINTENENCE 08/19/24 Unknown History tablet,extended release) carvedilol 12.5 mg tablet 12.5 mg PO BIDCM #30 tabs 08/22/24 Unknown Rx losartan 50 mg tablet 50 mg PO DAILY #30 tabs 08/22/24 Unknown Rx furosemide 40 mg tablet 40 mg PO BID #60 tabs 01/30/25 Unknown Rx metolazone 5 mg tablet 5 mg PO DAILY HE 01/30/25 Unknown History acetaminophen 325 mg tablet 650 mg PO Q6H PRN Pain 1-10 Or 02/05/25 Unknown History Fever >100.7 Allergy/AdvReac Type Severity Reaction Status Date / Time No Known Allergies Allergy Verified 02/05/25 09:50 Family History Father Diabetes Heart disease CAD (coronary artery disease) Mother Heart disease Surgical History History of coronary artery stent placement (09/2013) H/O vein stripping Status post angioplasty with stent Social History household members: family Smoking Status: Former smoker how long ago did patient quit smokin years ago alcohol intake: never substance use type: does not use caffeine: Yes ROS ROS Narrative negative except above Physical Exam Narrative Alert awake oriented x 3 no obvious distress no pallor no icterus no JVD s1s2 no murmurs lungs clear abdomen soft no organomegaly no edema no cyanosis morillo + Lab / Micro Data 02/06/25 04:20 02/06/25 04:20 Labs: Laboratory Results - last 24 hr 02/05/25 21:41: POC Glucose 171 H 02/06/25 04:20: WBC 11.7 H, RBC 3.32 L, Hgb 7.2 L, Hct 24.8 L, MCV 74.7 L, MCH 21.7 L, MCHC 29.0 L, RDW Std Deviation 44.5 H, RDW Coeff of Bulmaro 16.4 H, Plt Count 267, MPV 10.0, Immature Gran % (Auto) 0.500, Neut % (Auto) 82.3 H, Lymph % (Auto) 6.6 L, [place] % (Auto) 9.6, Eos % (Auto) 0.7, Baso % (Auto) 0.3, Absolute Neuts (auto) 9.6 H, Absolute Lymphs (auto) 0.77 L, Nucleated RBC % 0, Sodium 137, Potassium 4.9, Chloride 104, Carbon Dioxide 20.0 L, Anion Gap 13, BUN 70 H, Creatinine 2.45 H, Estim Creat Clear Calc 24.62 L, Est GFR (MDRD) Non-Af 20 L, BUN/Creatinine Ratio 28.4 H, Glucose 131 H, Calcium 9.0, Triglycerides 65, Cholesterol 119, LDL Cholesterol, Calc 69, VLDL Cholesterol 13, HDL Cholesterol 37 L, Cholesterol/HDL Ratio 3.20, TSH 3.320 02/06/25 11:24: POC Glucose 124 H 02/06/25 16:09: POC Glucose 111 H Micro: Microbiology 02/05/25 11:20 Urine Catheter - Catheter Urine Culture - Preliminary Presumptive E. coli 02/05/25 16:50 Nasal Secretion MRSA (PCR) - Final 02/05/25 16:50 Wound - Leg, Left Skin and Soft Tissue MRSA/MSSA (PCR - Final Rhythm Strip Rhythm Strip: Sinus Rhythm Rate: 104 Imaging Radiology Impression Echocardiogram 02/05/25 15:54 Interpretation Summary Mildly dilated left ventricle. The left ventricular ejection fraction is 15 %. There are regional wall motion abnormalities as specified. Mid-Posterior: Akinetic. Mid-Inferior: Akinetic. Mid-Anterior : Normal. Compared to previous study, the left ventricular systolic function has worsened.. Ordering Physician: Zachery Gomez Referring Physician: Nabor James Performed By: Pushpa Marquis, LOUIE, RVT
[2025-02-06] MEDS: Atorvastatin Calcium 40 MG Tablet PO (21:27)
[2025-02-06] MEDS: Furosemide 500 MG in Empty Viaflex 50 mL 1 EACH CONT INF (22:12)
--- NOTE | 2025-02-06 22:15 | CPS ---
PATIENT REFUSED PAP THERAPY FOR NIGHT TIME USE
[2025-02-07] VITALS (20 sets, daily range): BP systolic 90–128; BP diastolic 46–73; PULSE 77–108; RESP 18–28; TEMP 36.3–36.4; O2SAT 88–98; BMI 40.9
[2025-02-07 00:57] LABS: Bedside Glucose 177 mg/dL (74-106)
[2025-02-07] MEDS: hydrALAZINE 10 MG Tablet PO ×2 (05:30→21:20)
--- NOTE | 2025-02-07 07:42 | PCM.PN.HOSP ---
Reason for Visit Reason for Visit: Diagnoses Type 2 diabetes mellitus with foot ulcer (02/05/25) Mixed hyperlipidemia (02/05/25) Essential (primary) hypertension (02/05/25) Atherosclerotic heart disease of [place] coronary artery without angina pectoris (02/05/25) Acute on chronic combined systolic (congestive) and diastolic (congestive) heart failure (02/05/25) Cellulitis of right lower limb (02/05/25) Non-pressure chronic ulcer of other part of unspecified foot with unspecified severity (02/05/25) Chronic kidney disease, stage 4 (severe) (02/05/25) Other specified abnormal findings of blood chemistry (02/05/25) Objective Data Objective Data Vital Signs: Vital Signs Temp Pulse Resp BP Pulse Ox O2 Del Method O2 Flow Rate 97.4 F L 108 H 18 128/73 H 94 Nasal Cannula 5 02/07/25 03:25 02/07/25 05:30 02/07/25 03:25 02/07/25 05:30 02/07/25 03:25 02/07/25 03:25 02/07/25 03:25 FiO2 30 02/06/25 05:00 Oxygen Flow Rate (L/min) 5 Oxygen Delivery Method Nasal Cannula Weight: 249 lb 12.54 oz Body Mass Index (BMI) 40.9 Intake & Output: Intake and Output for Last 24 Hours 02/05/25 02/06/25 02/07/25 23:59 23:59 23:59 Intake Total 202.95 / 202.95 195.74 / 195.74 Output Total 130 / 305 1050 / 1050 300 / 300 Balance 72.95 / -102.05 -854.26 / -854.26 -300 / -300 Lab / Micro Data 02/06/25 04:20 02/06/25 04:20 Labs: Laboratory Results - last 24 hr 02/05/25 21:41: POC Glucose 171 H 02/06/25 11:24: POC Glucose 124 H 02/06/25 16:09: POC Glucose 111 H 02/06/25 21:23: POC Glucose 177 H Micro: Microbiology 02/05/25 11:20 Urine Catheter - Catheter Urine Culture - Preliminary Presumptive E. coli 02/05/25 16:50 Nasal Secretion MRSA (PCR) - Final 02/05/25 16:50 Wound - Leg, Left Skin and Soft Tissue MRSA/MSSA (PCR - Final Radiography Diagnostic Testing: Radiology Impression Echocardiogram 02/05/25 15:54 Interpretation Summary Mildly dilated left ventricle. The left ventricular ejection fraction is 15 %. There are regional wall motion abnormalities as specified. Mid-Posterior: Akinetic. Mid-Inferior: Akinetic. Mid-Anterior : Normal. Compared to previous study, the left ventricular systolic function has worsened.. Ordering Physician: Zachery Gomez Referring Physician: Nabor James Performed By: Pushpa Marquis, LOUIE, RVT Rhythm Strip Rhythm Strip: Sinus Rhythm Rate: 104 Physical Exam Narrative Seen and examined On Lasix 20 mg/h. Had also 1 dose of metolazone. On 4 to 5 L of oxygen Patient is feeling better than yesterday. Off BiPAP. Dyspnea better General: Awake, fatigued, fatigued HEENT: Atraumatic, PERRLA, EOMI, Normocephalic. Oral: Oral mucosa dry, deep oropharyngeal structures could not be visualized Neck: Supple, elevated BL JVD, Negative Carotid Bruits Chest wall/Lungs: Air entry severely diminished in all lung kiran. Mild bilateral coarse crepitation Cardiovascular: Sinus, Normal S1,S2, No M/G/R Abdomen: Bowel Sounds Present, Soft, Non Tender, Non-Distended : No dysuria. No renal angle tenderness. No suprapubic tenderness. Extremities: 3+ bilateral pitting edema, Capillary Refill Less than 3 Seconds Skin: Healing superficial scratch/ulcer over lateral aspect of right leg with surrounding contiguous cellulitis with. Also mild bruise on the forehead since admission Musculoskeletal: No Tenderness to Palpation of Joints or Extremities. ROM restricted Neurological: Cranial nerves II-XII grossly intact, DTR 2+/4. No acute focal neurological deficit. Psych/Mental Status: Flat affect. Assessment & Plan Assessment/Plan (1) Acute on chronic combined systolic (congestive) and diastolic (congestive) heart failure: (2) Cellulitis of right anterior lower leg: PLAN: Plan This 74-year-old female is being admitted for extreme dyspnea at rest/shortness of breath and bilateral lower extremity edema consistent with acute on chronic heart failure 1. Acute on chronic combined respiratory failure due to heart failure exacerbation: The patient is being admitted in ICU on BiPAP. ABG stat ordered. Discussed with the ED physician to watch for half an hour if she does not improve will need intubation prior to transfer to ICU. Currently on 6 L of oxygen. Lactic acidosis most likely due to pulmonary edema/hypoxia. Patient does not have signs and symptoms of sepsis. The patient not on home oxygen or NIPPV at home 02/06: ABG 7.21/50.7/133 at BiPAP 60% FiO2. Bicarb 22.Bicarb in BMP was 15.7 on 02/05. Probably bicarb and BMP are normal. Today's bicarb is 20. Continue BiPAP intermittently 02/07: The patient has been off BiPAP last night. On 4 to 5 L of oxygen. Gradually improving. 2. Acute on chronic combined heart failure: BNP about 30,000. Chest x-ray initially reviewed and shows pulmonary edema, cardiomegaly and blunting of both CP angles. Twelve-lead EKG sinus tachycardia, 104 bpm, QRS 168, QTc 531 ms. LBBB. 02/06: Total urine output 455 mL, 325 since last night. Discussed with the manager ob. Continue the same regimen 02/07: Urine output is low. On furosemide 20 mg/h. 1 dose of metolazone. Urine output 1050 mL documented yesterday. 300 mL since midnight. Concrete Boom Operator consult reviewed and appreciated 3. Elevated troponin probably due to increased cardiac demand with suspicion of possible non-STEMI: Patient complained of nondescriptive chest pain. Lesion discussed with manager ob Dr. Cardona. Recommended enoxaparin 1 dose. Troponin 218, 241. Third troponin pending. EKG as described above. Patient has CAD status post stents, on aspirin and statin. Hold carvedilol because of CHF exacerbation/fluid overload and resume once euvolemic. Last echo in February 2024 shows EF 35%, moderately severe segmental systolic dysfunction, stage I diastolic dysfunction. Mitral valve, tricuspid valve reported normal. She had Lasix 40 mg IV in ED. 1 more dose of Lasix 40 mg IV stat, then started on Lasix drip. Heart failure core measures including intake and output, fluid restriction less than 1500 mL, daily weight monitoring, kidney and electrolytes monitoring. Repeat 2D echo. Licensed Physical Therapist consulted from ED physician 02/06: Third troponin 270. Licensed Physical Therapist will resume carvedilol at lower dose. On hydralazine and nitrate low-dose 02/07: Echo noted EF 15%. Akinetic mid posterior, inferior wall. Compared to the previous echo, EF has decreased from 35 to 50% ELIDA on CKD stage IV: Patient baseline creatinine runs around 2.0 as in January 2025. Admitting BUN/creatinine 58/2.32 therefore ELIDA on CKD stage IV. Concrete Boom Operator consulted. Patient has hyperkalemia, 5.5, high anion gap metabolic acidosis, AG 19, bicarb 15. ABG ordered as mentioned above. Kayexalate and hyperkalemia cocktail ordered. Repeat BMP after 4 hours. Hold losartan metolazone. 02/06: BUN/creatinine 70/2.45. Continue furosemide drip. Concrete Boom Operator on board. 02/07: Today's BMP is pending. 4. Chronic severe anemia: H&H 8.0/27.9%. MCV 75 RDW elevated 17.0. Possible chronic iron deficiency anemia. Monitor CBC. Iron workup ordered for tomorrow a.m.. 02/07: Hemoglobin dropped to 7.2%. It is microcytic with elevated RDW. Stool for occult blood ordered. H&H ordered for in the evening. Patient only on baby aspirin. 5. DM type II: Last A1c 5.2% in July 2024. Accu-Chek before meals and at bedtime with Humalog sliding scale coverage and hypoglycemia protocol. Most recent glucoses elevated, 259 BMP 6. Chronic bilateral fifth metatarsal excision: Superficial ulcer of left lateral leg and contiguous cellulitis: MRSA wound and nasal screen ordered. IV cefazolin given in ED. IV ceftriaxone ordered 7. Past history of CVA: History of remote left lacunar infarct. On aspirin and statin, continued 8. Morbid obesity: Current weight 116 pounds, BMI 20.6 kg/m?. I think this is wrong/error reading of her weight as her BMI is 43.5 kg/m? in July 2024 and she looks more swollen edematous and heavy weight. 9. Depression and anxiety: On Flexotard continue 10. DVT prophylaxis: Bilateral SCDs. Not candidate for pharmacological prophylaxis. Living will/advanced directive/end of life care: Patient does not have living will or advanced directive. After discussion of benefits/risks procedures involved with full code, DNR CC arrest and DNR CC, the patient opted for full code. Patient does want artificial life support including intubation, tube feed, ventilator and/chest compression, central venous catheter, vasopressor and DC shock if needed Total time spent in kydy-ju-[id number] encounter in discussion of advanced directive 17 minutes. Echocardiogram 02/05/25 15:54 Interpretation Summary Mildly dilated left ventricle. The left ventricular ejection fraction is 15 %. There are regional wall motion abnormalities as specified. Mid-Posterior: Akinetic. Mid-Inferior: Akinetic. Mid-Anterior : Normal. Compared to previous study, the left ventricular systolic function has worsened.. Clinical Impression(s) from Imaging Studies Chest X-Ray 02/05/25 11:10 IMPRESSION: Cardiomegaly and CHF. Blunting of both costophrenic angles. Reading Location: [facility] Charges/Coding Visit Charges Inpatient E&M: 07797 [facility] Hosp L3
[2025-02-07] MEDS: Aspirin E.C. 81 MG Tablet PO (08:06)
[2025-02-07] MEDS: Carvedilol 6.25 MG Tablet PO ×2 (08:06→16:29)
[2025-02-07] MEDS: FLUoxetine 10 MG Capsule PO (08:06)
[2025-02-07] MEDS: Insulin Lispro 100 UNIT/ML INSULN.PEN 15 UNIT SC ×4 (08:06→21:25)
--- NOTE | 2025-02-07 08:24 | WOUNDNOTE ---
wound photo: right foot
[2025-02-07 08:37] LABS: Bedside Glucose 192 mg/dL (74-106)
--- NOTE | 2025-02-07 09:00 | PCM.PN.CARD ---
Subjective Subjective Patient was sitting up in the chair in the room today. She does seem to be somewhat lethargic but she was able to drink her apple juice. Patient's Coreg was held last night for an unspecified reason. Blood pressures have been 120?130/60 5?75 heart rate was 104?108 in sinus rhythm. This morning telemetry shows normal sinus rhythm at 85 bpm. Objective Data Vital Signs: Vital Signs Temp Pulse Resp BP Pulse Ox O2 Del Method O2 Flow Rate 97.4 F L 108 H 18 128/73 H 94 Nasal Cannula 5 02/07/25 03:25 02/07/25 05:30 02/07/25 03:25 02/07/25 05:30 02/07/25 03:25 02/07/25 03:25 02/07/25 03:25 FiO2 30 02/06/25 05:00 Oxygen Flow Rate (L/min) 5 Oxygen Delivery Method Nasal Cannula Weight: 249 lb 12.54 oz Body Mass Index (BMI) 40.9 Intake & Output: Intake and Output for Last 24 Hours 02/05/25 02/06/25 02/07/25 23:59 23:59 23:59 Intake Total 202.95 / 202.95 195.74 / 195.74 Output Total 130 / 305 1050 / 1050 300 / 300 Balance 72.95 / -102.05 -854.26 / -854.26 -300 / -300 Lab / Micro Data Attestation: I reviewed the patient's lab results. 02/06/25 04:20 02/06/25 04:20 Labs: Laboratory Results - last 24 hr 02/05/25 21:41: POC Glucose 171 H 02/06/25 11:24: POC Glucose 124 H 02/06/25 16:09: POC Glucose 111 H 02/06/25 21:23: POC Glucose 177 H 02/07/25 07:52: POC Glucose 192 H Micro: Microbiology 02/05/25 11:20 Urine Catheter - Catheter Urine Culture - Final Presumptive E. coli Rhythm Strip Rhythm Strip: Sinus Rhythm Rate: 85 Cardiology Labs/Tests Rhythm: EKG: ECHO: Stress Test: Cardiac Cath: PCI: CT Surgery: Holter monitor: EPS: PPM: CXR: Chest CT Scan: Radiography Diagnostic Testing: Radiology Impression Echocardiogram 02/05/25 15:54 Interpretation Summary Mildly dilated left ventricle. The left ventricular ejection fraction is 15 %. There are regional wall motion abnormalities as specified. Mid-Posterior: Akinetic. Mid-Inferior: Akinetic. Mid-Anterior : Normal. Compared to previous study, the left ventricular systolic function has worsened.. Ordering Physician: Zachery Gomez Referring Physician: Nabor James Performed By: Pushpa Marquis, LOUIE, RVT Physical Exam Const alert Constitutional Narrative: Lethargic and answers questions yes and no this morning. Eyes EOMs intact bilaterally Neck Neck Narrative: Thick neck. Chest inspection of chest normal Chest Narrative: Increased AP diameter. Anterior breath sounds clear. Resp Resp Narrative: Tachypneic respiratory rate 25. Effort and Inspection: uses accessory muscles Auscultation: breath sounds absent bilateral (Posteriorly) Cardio Rate: regular rate Rhythm: regular rhythm Heart Sounds: S1 normal and S2 normal; Negative for click, gallop or murmur GI GI Narrative: Morbidly obese Extremity Extremity Narrative: Both lower extremities wrapped with Addy wrap's. Neuro Neuro Narrative: Patient seems lethargic compared to yesterday vital signs are very similar O2 saturation 94% she is tachypneic at respiratory rate of 24?25. Assessment & Plan Assessment/Plan (1) Acute on chronic combined systolic (congestive) and diastolic (congestive) heart failure: PLAN: Patient's most recent echo on this admission shows that her ejection fraction has dropped from 35% down to 15%. She does have segmental wall motion abnormalities in the inferior and posterior segments the remainder of the LV is globally dilated. Patient's laboratory evaluation is still pending this morning. The patient does continue to have some respiratory distress O2 saturations are adequate on nasal cannula at 94% with a respiratory rate in the 24?25 range. She does appear to be lethargic this morning. Nephrology is seeing the patient now to get their opinion. If felt to be appropriate with neurology but short-term use of inotropic agents such as dobutamine might be indicated. We had switched her to hydralazine and nitrates on this admission. Her blood pressure seems to be adequately controlled. Her Coreg has been held and this should be reinstituted if vital signs permit. It does appear that the patient is probably reaching end-stage heart failure this is functional class IV NTHA classification for heart failure (2) Secondary pulmonary arterial hypertension: PLAN: Patient's pulmonary pressures estimated 58 mmHg. (3) Chronic kidney disease (CKD): QUALIFIERS: Chronic kidney disease stage: stage 4 (GFR 15-29) Qualified Code(s): N18.4 - Chronic kidney disease, stage 4 (severe) PLAN: Patient's chronic creatinine usually runs around 2.0. Yesterday it was 2.45 with a BUN of 70. Nephrology is seeing the patient. Will await their input but if felt to be appropriate would consider a short duration of inotropic support with dobutamine. PLAN: Plan 1. Try to reinstitute Coreg 3.125-6.25 mg twice daily. 2. Await recommendations from nephrology. 3. Consider adding dobutamine 5?10 mics for inotropic support if felt to be of benefit from a nephrology standpoint. Charges/Coding Visit Charges Inpatient E&M: 59715 [facility] Hosp L3
--- NOTE | 2025-02-07 09:01 | PN.RENAL_ITS ---
Subjective Subjective Following for CKD. Patient appears a little confused. She denies chest pain. She still has dyspnea on exertion. There is no nausea or vomiting. Objective Data Objective Data Vital Signs: Vital Signs Temp Pulse Resp BP Pulse Ox O2 Del Method O2 Flow Rate 97.4 F L 108 H 18 128/73 H 94 Nasal Cannula 5 02/07/25 03:25 02/07/25 05:30 02/07/25 03:25 02/07/25 05:30 02/07/25 03:25 02/07/25 03:25 02/07/25 03:25 FiO2 30 02/06/25 05:00 Oxygen Flow Rate (L/min) 5 Oxygen Delivery Method Nasal Cannula Weight: 113.3 kg Body Mass Index (BMI) 40.9 Intake & Output: Intake and Output for Last 24 Hours 02/05/25 02/06/25 02/07/25 23:59 23:59 23:59 Intake Total 202.95 / 202.95 195.74 / 195.74 Output Total 130 / 305 1050 / 1050 300 / 300 Balance 72.95 / -102.05 -854.26 / -854.26 -300 / -300 Lab / Micro Data 02/06/25 04:20 02/07/25 08:46 Labs: Laboratory Results - last 24 hr 02/05/25 21:41: POC Glucose 171 H 02/06/25 11:24: POC Glucose 124 H 02/06/25 16:09: POC Glucose 111 H 02/06/25 21:23: POC Glucose 177 H 02/07/25 07:52: POC Glucose 192 H Micro: Microbiology 02/05/25 11:20 Urine Catheter - Catheter Urine Culture - Final Presumptive E. coli 02/05/25 16:50 Nasal Secretion MRSA (PCR) - Final 02/05/25 16:50 Wound - Leg, Left Skin and Soft Tissue MRSA/MSSA (PCR - Final Radiography Diagnostic Testing: Radiology Impression Echocardiogram 02/05/25 15:54 Interpretation Summary Mildly dilated left ventricle. The left ventricular ejection fraction is 15 %. There are regional wall motion abnormalities as specified. Mid-Posterior: Akinetic. Mid-Inferior: Akinetic. Mid-Anterior : Normal. Compared to previous study, the left ventricular systolic function has worsened.. Ordering Physician: Zachery Gomez Referring Physician: Nabor James Performed By: Pushpa Marquis, LOUIE, RVT Rhythm Strip Rhythm Strip: Sinus Rhythm Rate: 104 Physical Exam Narrative Alert awake oriented x 3 no obvious distress no pallor no icterus no JVD s1s2 no murmurs lungs clear abdomen soft no organomegaly no edema no cyanosis morillo + Assessment & Plan Assessment/Plan (1) ELIDA (acute kidney injury): (2) Chronic kidney disease (CKD): QUALIFIERS: Chronic kidney disease stage: stage 4 (GFR 15-29) Q ualified Code(s): N18.4 - Chronic kidney disease, stage 4 (severe) PLAN: Plan Impression/Plan: Patient is a 74-year-old female with past history of type 2 diabetes mellitus, hypertension, CAD, ischemic cardiomyopathy with HFrEF (EF 15%), pulmonary hypertension, stroke, and hyperlipidemia. Patient presents to the hospital on 02/05/2025 with 1 week history of progressively worsening dyspnea and lower extremity edema. Patient was admitted to the hospital for treatment of acute hypoxic respiratory failure requiring NIV. Nephrology is following for ELIDA on CKD. Acute kidney injury. Baseline serum creatinine has been around 1.80 to 2.00 mg/dL prior to this admission. Suspect ELIDA is secondary to cardiorenal syndrome. Furosemide infusion was increased to 20 mg/h on 02/06/2025. Serum creatinine is relatively stable at 2.52 mg/dL today. Patient still appears to be volume up. Okay to continue furosemide infusion at current dose. We will recheck renal function, volume status, acid-base and electrolytes again tomorrow.
[2025-02-07] MEDS: Senna/Docusate Sodium 1 Tablet 2 TABLET PO ×2 (09:11→21:20)
[2025-02-07] MEDS: Polyethylene Glycol 3350 17 GM PACKET PO (09:11)
[2025-02-07 10:08] LABS: Anion Gap 16 (5-15); BUN 80 mg/dL (4-19); BUN/Creat Ratio 31.6 RATIO (10-20); Carbon Dioxide 20.2 mmol/L (21.0-32.0); Chloride 104 mmol/L (98-108); Creatinine, Serum 2.52 mg/dL (0.70-1.20); EST Glomerular Filtration Rate 19 (>60); Estimated Creatinine Clearance 23.84 ml/min (50-250); Glucose 222 mg/dL (70-99); Potassium 5.1 mmol/L (3.3-5.1); Sodium Level 140 mmol/L (133-145)
--- NOTE | 2025-02-07 10:21 | CASEMGMT ---
Social Work- SW completed interdisciplinary rounds with care team. Pt reporting that spouse and son assist at home; pt walks very limited distances at home, but reports that she is not on any oxygen at home. Pt is on 5L as of rounds. SW will continue to follow for discharge needs. ROSE Hein
[2025-02-07] MEDS: Ceftriaxone 1 GM/50 ML BAG IV (10:23)
[2025-02-07 12:11] LABS: Bedside Glucose 229 mg/dL (74-106)
[2025-02-07] MEDS: Insulin Lispro 100 UNIT/ML INSULN.PEN SC ×2 (16:30→21:26)
[2025-02-07 16:52] LABS: Bedside Glucose 239 mg/dL (74-106)
[2025-02-07] MEDS: Atorvastatin Calcium 40 MG Tablet PO (21:20)
[2025-02-07 21:48] LABS: Bedside Glucose 165 mg/dL (74-106)
[2025-02-07] MEDS: Isosorbide DN 10 MG Tablet 5 MG PO (22:58)
[2025-02-07] MEDS: Furosemide 500 MG in Empty Viaflex 50 mL 1 EACH CONT INF (23:25)
[2025-02-07] MEDS: Acetaminophen 325 MG Tablet 650 MG PO (23:29)
[2025-02-08] VITALS (43 sets, daily range): BP systolic 70–125; BP diastolic 48–72; PULSE 60–95; RESP 12–28; TEMP 35.3–37.2; O2SAT 91–100; BMI 41.1
[2025-02-08] MEDS: hydrALAZINE 10 MG Tablet PO ×2 (05:28→21:32)
[2025-02-08] MEDS: 0.9% Saline Lock 10 ML Syringe IV (05:28)
[2025-02-08 05:46] LABS: Absolute Lymphocyte Count 0.43 X10^3/uL (0.83-4.51); Absolute Neutrophil Count 9.7 X10^3/uL (2.0-7.7); Basophil# 0.05 X10^3/uL; Basophil% 0.4 % (0-1); Eosinophil# 0.07 X10^3/uL; Eosinophils% 0.6 % (0-5); Hematocrit 28.1 % (37-47); Hemoglobin 7.7 g/dL (12.0-15.0); Lymphocyte # 0.43 X10^3/ul (0.83-4.51); Lymphocyte % 3.8 % (19-41); Mean Corp Hgb Conc 27.4 g/dL (32-36); Mean Corpuscular Hgb 21.2 pg (27.0-32.0); Mean Corpuscular Volume 77.4 fL (81-99); Mean Platelet Vol. 10.2 fl (6.2-12.0); Monocyte# 0.76 X10^3/uL; Monocyte% 6.8 % (0-10); NRBC Flagged by Analyzer 0.2 % (0-5); Neutrophil # 9.73 X10^3/uL (2.7-7.7); Neutrophil % 86.6 % (47-70); POSITIVE DIFFERENTIAL YES; Platelet Count 286 K/mm3 (150-450); RBC Distribution Width CV 16.4 % (11.6-14.6); RBC Distribution Width SD 46.5 fl (35.1-43.9); Red Blood Count 3.63 M/mm3 (4.2-5.4); White Blood Count 11.2 K/mm3 (4.4-11.0)
[2025-02-08 06:12] LABS: Anion Gap 14 (5-15); BUN 86 mg/dL (4-19); BUN/Creat Ratio 33.2 RATIO (10-20); Calcium,Total 9.1 mg/dL (7.6-11.0); Carbon Dioxide 21.7 mmol/L (21.0-32.0); Chloride 103 mmol/L (98-108); EST Glomerular Filtration Rate 19 (>60); Estimated Creatinine Clearance 23.18 ml/min (50-250); Glucose 135 mg/dL (70-99); Potassium 5.1 mmol/L (3.3-5.1); Sodium Level 139 mmol/L (133-145)
[2025-02-08] MEDS: Ceftriaxone 1 GM/50 ML BAG IV (07:51)
[2025-02-08] MEDS: FLUoxetine 10 MG Capsule PO (07:51)
[2025-02-08] MEDS: Isosorbide DN 10 MG Tablet 5 MG PO ×2 (07:52→22:56)
[2025-02-08] MEDS: Aspirin E.C. 81 MG Tablet PO (07:52)
[2025-02-08] MEDS: Carvedilol 6.25 MG Tablet PO ×2 (07:52→16:29)
[2025-02-08] MEDS: Insulin Lispro 100 UNIT/ML INSULN.PEN 15 UNIT SC (07:53)
[2025-02-08] MEDS: Senna/Docusate Sodium 1 Tablet 2 TABLET PO ×2 (07:55→21:32)
[2025-02-08] MEDS: Polyethylene Glycol 3350 17 GM PACKET PO (07:55)
--- NOTE | 2025-02-08 08:11 | PCM.PN.HOSP ---
Reason for Visit Reason for Visit: Diagnoses Type 2 diabetes mellitus with foot ulcer (02/05/25) Mixed hyperlipidemia (02/05/25) Essential (primary) hypertension (02/05/25) Atherosclerotic heart disease of [place] coronary artery without angina pectoris (02/05/25) Secondary pulmonary arterial hypertension (02/05/25) Acute on chronic combined systolic (congestive) and diastolic (congestive) heart failure (02/05/25) Cellulitis of right lower limb (02/05/25) Non-pressure chronic ulcer of other part of unspecified foot with unspecified severity (02/05/25) Acute kidney failure, unspecified (02/05/25) Chronic kidney disease, stage 4 (severe) (02/05/25) Other specified abnormal findings of blood chemistry (02/05/25) Objective Data Objective Data Vital Signs: Vital Signs Temp Pulse Resp BP Pulse Ox O2 Del Method O2 Flow Rate 96 F L 87 22 H 107/62 91 High Flow 7 02/08/25 02:00 02/08/25 07:00 02/08/25 07:00 02/08/25 07:00 02/08/25 07:00 02/08/25 07:00 02/08/25 07:00 FiO2 30 02/06/25 05:00 Oxygen Flow Rate (L/min) 7 Oxygen Delivery Method High Flow Weight: 251 lb 1.704 oz Body Mass Index (BMI) 41.1 Intake & Output: Intake and Output for Last 24 Hours 02/06/25 02/07/25 02/08/25 23:59 23:59 23:59 Intake Total 195.74 / 195.74 700 / 700 Output Total 1050 / 1050 1140 / 1215 200 / 200 Balance -854.26 / -854.26 -440 / -515 -200 / -200 Lab / Micro Data 02/08/25 05:35 02/08/25 05:35 Labs: Laboratory Results - last 24 hr 02/07/25 07:52: POC Glucose 192 H 02/07/25 08:46: Sodium 140, Potassium 5.1, Chloride 104, Carbon Dioxide 20.2 L, Anion Gap 16 H, BUN 80 H, Creatinine 2.52 H, Estim Creat Clear Calc 23.84 L, Est GFR (MDRD) Non-Af 19 L, BUN/Creatinine Ratio 31.6 H, Glucose 222 H, Calcium 9.0 02/07/25 11:45: POC Glucose 229 H 02/07/25 16:24: POC Glucose 239 H 02/07/25 21:25: POC Glucose 165 H 02/08/25 05:35: WBC 11.2 H, RBC 3.63 L, Hgb 7.7 L, Hct 28.1 L, MCV 77.4 L, MCH 21.2 L, MCHC 27.4 L D, RDW Std Deviation 46.5 H, RDW Coeff of Bulmaro 16.4 H, Plt Count 286, MPV 10.2, Immature Gran % (Auto) 1.800 H, Neut % (Auto) 86.6 H, Lymph % (Auto) 3.8 L, Mitchell % (Auto) 6.8, Eos % (Auto) 0.6, Baso % (Auto) 0.4, Absolute Neuts (auto) 9.7 H, Absolute Lymphs (auto) 0.43 L, Nucleated RBC % 0.2, Sodium 139, Potassium 5.1, Chloride 103, Carbon Dioxide 21.7, Anion Gap 14, BUN 86 H, Creatinine 2.60 H, Estim Creat Clear Calc 23.18 L, Est GFR (MDRD) Non-Af 19 L, BUN/Creatinine Ratio 33.2 H, Glucose 135 H, Calcium 9.1 Micro: Microbiology 02/08/25 00:05 Stool Stool Occult Blood (TREVOR) - Final 02/05/25 12:15 Blood Culture (Wb) - Left Wrist Blood Culture - Preliminary No growth in 48 hours. 02/05/25 12:04 Blood Culture (Wb) - Right Hand Blood Culture - Preliminary No growth in 48 hours. 02/05/25 11:20 Urine Catheter - Catheter Urine Culture - Final Presumptive E. coli 02/05/25 16:50 Nasal Secretion MRSA (PCR) - Final 02/05/25 16:50 Wound - Leg, Left Skin and Soft Tissue MRSA/MSSA (PCR - Final Rhythm Strip Rhythm Strip: Sinus Rhythm Rate: 104 Physical Exam Narrative Seen and examined Patient unclear about her present condition. Not sure whether she is feeling better, same or worse. Short of breath on 7 L of high flow oxygen. Mild tachypneic and mouth breathing On Lasix 20 mg/h. Had total of 600 mL urine output, 400 mL overnight General: Awake, fatigued, fatigued HEENT: Atraumatic, PERRLA, EOMI, Normocephalic. Oral: Oral mucosa dry, deep oropharyngeal structures could not be visualized Neck: Supple, elevated BL JVD, Negative Carotid Bruits Chest wall/Lungs: Air entry severely diminished in all lung kiran. Mild basilar crepitation. Dyspnea at rest Cardiovascular: Sinus, Normal S1,S2, No M/G/R Abdomen: Bowel Sounds Present, Soft, Non Tender, Non-Distended : No dysuria. No renal angle tenderness. No suprapubic tenderness. Extremities: 3+ bilateral pitting edema, Capillary Refill Less than 3 Seconds Skin: Healing superficial scratch/ulcer over lateral aspect of right leg, redness/cellulitis but. Also mild bruise on the forehead since admission Musculoskeletal: No Tenderness to Palpation of Joints or Extremities. ROM restricted Neurological: Cranial nerves II-XII grossly intact, DTR 2+/4. No acute focal neurological deficit. Psych/Mental Status: Flat affect. Assessment & Plan Assessment/Plan (1) Acute on chronic combined systolic (congestive) and diastolic (congestive) heart failure: (2) Cellulitis of right anterior lower leg: PLAN: Plan This 74-year-old female is being admitted for extreme dyspnea at rest/shortness of breath and bilateral lower extremity edema consistent with acute on chronic heart failure 1. Acute on chronic combined respiratory failure due to heart failure exacerbation: The patient is being admitted in ICU on BiPAP. ABG stat ordered. Discussed with the ED physician to watch for half an hour if she does not improve will need intubation prior to transfer to ICU. Currently on 6 L of oxygen. Lactic acidosis most likely due to pulmonary edema/hypoxia. Patient does not have signs and symptoms of sepsis. The patient not on home oxygen or NIPPV at home 02/06: ABG 7.21/50.7/133 at BiPAP 60% FiO2. Bicarb 22.Bicarb in BMP was 15.7 on 02/05. Probably bicarb and BMP are normal. Today's bicarb is 20. Continue BiPAP intermittently 02/07: The patient has been off BiPAP last night. On 4 to 5 L of oxygen. Gradually improving. 02/08: Patient also neutrophile flow oxygen, looks dyspneic at rest. ABG ordered. 2. Acute on chronic combined heart failure: BNP about 30,000. Chest x-ray initially reviewed and shows pulmonary edema, cardiomegaly and blunting of both CP angles. Twelve-lead EKG sinus tachycardia, 104 bpm, QRS 168, QTc 531 ms. LBBB. 02/06: Total urine output 455 mL, 325 since last night. Discussed with the library monitor. Continue the same regimen 02/07: Urine output is low. On furosemide 20 mg/h. 1 dose of metolazone. Urine output 1050 mL documented yesterday. 300 mL since midnight. Paving Block Cutter consult reviewed and appreciated 02/08: Even on 20 mg Lasix per hour infusion, patient not putting good urine total 600 mL. Neurologist input needed. 3. Elevated troponin probably due to increased cardiac demand with suspicion of possible non-STEMI: Patient complained of nondescriptive chest pain. Lesion discussed with library monitor Dr. Cardona. Recommended enoxaparin 1 dose. Troponin 218, 241. Third troponin pending. EKG as described above. Patient has CAD status post stents, on aspirin and statin. Hold carvedilol because of CHF exacerbation/fluid overload and resume once euvolemic. Last echo in February 2024 shows EF 35%, moderately severe segmental systolic dysfunction, stage I diastolic dysfunction. Mitral valve, tricuspid valve reported normal. She had Lasix 40 mg IV in ED. 1 more dose of Lasix 40 mg IV stat, then started on Lasix drip. Heart failure core measures including intake and output, fluid restriction less than 1500 mL, daily weight monitoring, kidney and electrolytes monitoring. Repeat 2D echo. Form Tamper consulted from ED physician 02/06: Third troponin 270. Form Tamper will resume carvedilol at lower dose. On hydralazine and nitrate low-dose 02/07: Echo noted EF 15%. Akinetic mid posterior, inferior wall. Compared to the previous echo, EF has decreased from 35 to 50% 02/08, started on Coreg low-dose 3.125 mg twice daily. Form Tamper recommended considering dobutamine 5-10 mics for inotropic support, if nephrology agrees Microbiology Past 72 Hours 02/08/25 00:05 Stool Stool Occult Blood (TREVOR) - Final 02/05/25 12:15 Blood Culture (Wb) - Left Wrist Blood Culture - Preliminary No growth in 48 hours. 02/05/25 12:04 Blood Culture (Wb) - Right Hand Blood Culture - Preliminary No growth in 48 hours. 02/05/25 11:20 Urine Catheter - Catheter Urine Culture - Final Presumptive E. coli 02/05/25 16:50 Nasal Secretion MRSA (PCR) - Final 02/05/25 16:50 Wound - Leg, Left Skin and Soft Tissue MRSA/MSSA (PCR - Final Laboratory Results 02/07/25 07:52: POC Glucose 192 H 02/07/25 08:46: Sodium 140, Potassium 5.1, Chloride 104, Carbon Dioxide 20.2 L, Anion Gap 16 H, BUN 80 H, Creatinine 2.52 H, Estim Creat Clear Calc 23.84 L, Est GFR (MDRD) Non-Af 19 L, BUN/Creatinine Ratio 31.6 H, Glucose 222 H, Calcium 9.0 02/07/25 11:45: POC Glucose 229 H 02/07/25 16:24: POC Glucose 239 H 02/07/25 21:25: POC Glucose 165 H 02/08/25 05:35: WBC 11.2 H, RBC 3.63 L, Hgb 7.7 L, Hct 28.1 L, MCV 77.4 L, MCH 21.2 L, MCHC 27.4 L D, RDW Std Deviation 46.5 H, RDW Coeff of Bulmaro 16.4 H, Plt Count 286, MPV 10.2, Immature Gran % (Auto) 1.800 H, Neut % (Auto) 86.6 H, Lymph % (Auto) 3.8 L, Mitchell % (Auto) 6.8, Eos % (Auto) 0.6, Baso % (Auto) 0.4, Absolute Neuts (auto) 9.7 H, Absolute Lymphs (auto) 0.43 L, Nucleated RBC % 0.2, Sodium 139, Potassium 5.1, Chloride 103, Carbon Dioxide 21.7, Anion Gap 14, BUN 86 H, Creatinine 2.60 H, Estim Creat Clear Calc 23.18 L, Est GFR (MDRD) Non-Af 19 L, BUN/Creatinine Ratio 33.2 H, Glucose 135 H, Calcium 9.1 ELIDA on CKD stage IV: Patient baseline creatinine runs around 2.0 as in January 2025. Admitting BUN/creatinine 58/2.32 therefore ELIDA on CKD stage IV. Paving Block Cutter consulted. Patient has hyperkalemia, 5.5, high anion gap metabolic acidosis, AG 19, bicarb 15. ABG ordered as mentioned above. Kayexalate and hyperkalemia cocktail ordered. Repeat BMP after 4 hours. Hold losartan metolazone. 02/06: BUN/creatinine 70/2.45. Continue furosemide drip. Paving Block Cutter on board. 02/07: Today's BMP is pending. 02/08: BUN/creatinine 86/2.6. BMP yesterday was 3.5. 4. Chronic severe anemia: H&H 8.0/27.9%. MCV 75 RDW elevated 17.0. Possible chronic iron deficiency anemia. Monitor CBC. Iron workup ordered for tomorrow a.m.. 02/07: Hemoglobin dropped to 7.2%. It is microcytic with elevated RDW. Stool for occult blood ordered. H&H ordered for in the evening. Patient only on baby aspirin. 02/08: H&H 7.7/28%. Stool for occult blood negative. B12 was normal 635 07/2024. TSH normal. Cortisol 11.2 normal in July 2024. Anemia workup ordered. Reticulocyte panel and LDH ordered 5. DM type II: Last A1c 5.2% in July 2024. Accu-Chek before meals and at bedtime with Humalog sliding scale coverage and hypoglycemia protocol. Most recent glucoses elevated, 259 BMP .135. 6. Chronic bilateral fifth metatarsal excision: Superficial ulcer of left lateral leg and contiguous cellulitis: MRSA wound and nasal screen ordered. IV cefazolin given in ED. IV ceftriaxone ordered 7. Past history of CVA: History of remote left lacunar infarct. On aspirin and statin, continued 8. Morbid obesity: Current weight 116 pounds, BMI 20.6 kg/m?. I think this is wrong/error reading of her weight as her BMI is 43.5 kg/m? in July 2024 and she looks more swollen edematous and heavy weight. 9. Depression and anxiety: On Flexotard continue 10. DVT prophylaxis: Bilateral SCDs. Not candidate for pharmacological prophylaxis. Living will/advanced directive/end of life care: Patient does not have living will or advanced directive. After discussion of benefits/risks procedures involved with full code, DNR CC arrest and DNR CC, the patient opted for full code. Patient does want artificial life support including intubation, tube feed, ventilator and/chest compression, central venous catheter, vasopressor and DC shock if needed Total time spent in [id number] encounter in discussion of advanced directive 17 minutes. Echocardiogram 02/05/25 15:54 Interpretation Summary Mildly dilated left ventricle. The left ventricular ejection fraction is 15 %. There are regional wall motion abnormalities as specified. Mid-Posterior: Akinetic. Mid-Inferior: Akinetic. Mid-Anterior : Normal. Compared to previous study, the left ventricular systolic function has worsened.. Clinical Impression(s) from Imaging Studies Chest X-Ray 02/05/25 11:10 IMPRESSION: Cardiomegaly and CHF. Blunting of both costophrenic angles. Reading Location: [facility] Charges/Coding Visit Charges Inpatient E&M: 48285 Subs Hosp L3
[2025-02-08 08:51] LABS: Allen Test Positive; Base Excess -3 mmol/L (-2 to +2); Bicarbonate 26.2 mmol/L (22-26); Blood Gas Specimen Type ART; Mode Not entered; O2 Delivery Device HFNC; PO2 68 mmHG (75-100); SITE R Radial; SO2 84 % (95-99); Total Carbon Dioxide 29 mmol/L; pH 7.11 (7.35-7.45)
--- NOTE | 2025-02-08 09:20 | EX.PCM.CONCC ---
Assessment & Plan Assessment/Plan (1) Acute on chronic combined systolic (congestive) and diastolic (congestive) heart failure: (2) Urinary tract infection: (3) Acute respiratory failure with hypoxia and hypercarbia: (4) Chronic kidney disease (CKD): QUALIFIERS: Chronic kidney disease stage: stage 4 (GFR 15-29) Qualified Code(s): N18.4 - Chronic kidney disease, stage 4 (severe) PLAN: Plan RECOMMENDATIONS: 1. Initiate assist-control mode mechanical ventilation. Wean FiO2 and PEEP as tolerated. 2. Obtain sputum and send for culture. 3. Start vasopressor support for hemodynamic instability, if needed. 4. Continue antimicrobials. 5. Diuretics and goal-directed medical therapy per cardiology. 6. Obtain follow-up ABG. 7. Start appropriate ICU prophylaxis. IMPRESSIONS: 1. Acute respiratory failure with hypoxemia and hypercapnia secondary to decompensated heart failure The patient was initially admitted to the hospital with acute decompensated congestive heart failure and UTI, but worsened from a respiratory perspective on the morning of February 08, with increasing oxygen requirement and lethargy. Subsequent ABG demonstrated acute CO2 retention, which was refractory to the use of noninvasive positive pressure ventilatory support. Therefore, the patient was intubated. Will plan to obtain follow-up ABG postintubation. The patient will be maintained on assist-control mode mechanical ventilation, with a goal to wean FiO2 and PEEP as tolerated. Ongoing diuresis and goal-directed medical therapy will be deferred to cardiology. 2. Acute on chronic combined systolic and diastolic heart failure Continue medical management per cardiology recommendations. Unclear long-term prognosis. 3. Acute on chronic kidney disease Suspect that this is related to underlying cardiorenal syndrome. The patient will be maintained on diuretics, as tolerated by hemodynamics and renal function. 4. Morbid obesity/anemia/diabetes mellitus/history of CVA/depression/anxiety Complicates care, management, recovery and prognosis. Continue supportive measures as noted above. Will plan to initiate tube feeding for nutritional support beginning tomorrow. TIME: 40 minutes of critical care time, independent of procedures, was spent addressing the patient's acute respiratory failure with hypoxemia and hypercapnia, acute decompensated congestive heart failure, acute on chronic kidney disease, review of all data and collaboration with the care team. HPI Consult Data Date of Consult: 02/08/25 HPI Narrative Reason for Consultation: Respiratory failure HPI Narrative: The patient is a 74-year-old female, with a history as outlined below, who presented to the emergency department on February 05 with progressive dyspnea. History pertinent to the patient's hospitalization was obtained primarily via chart review, as the patient is too confused at the present time to provide any additional details. The patient has a known history of coronary artery disease status post PCI with ischemic cardiomyopathy, with echocardiogram from 2023 demonstrating an ejection fraction of 35%. She is currently followed in the cardiology clinic on an outpatient basis. The patient's medical history is also significant for morbid obesity, diabetes mellitus, chronic kidney disease, hypertension and history of CVA. On presentation to the emergency department, the patient was documented to be afebrile hemodynamically stable. She was initially saturating 80% on room air. Laboratory evaluation was notable for a white blood cell count of 20,000. Hemoglobin was low at 8.0 g/dL. Platelet count was within normal limits. Coagulation profile revealed an INR of 1.4. ABG was notable for a pH of 7.21 with a pCO2 of 51 and PO2 of 133. Chemistry profile was notable for a potassium of 5.5, bicarbonate of 16, BUN of 58 and creatinine of 2.32. Lactate was elevated at 2.5. BNP was increased to 29,822. Chest x-ray demonstrated pulmonary vascular congestion and blunting of the costophrenic angles, concerning for CHF. The patient was initially placed on PAP therapy and admitted to the medical intensive care unit for further management. The patient's hospital course, to date, has included attempted volume optimization with continuous IV Lasix infusion along with goal-directed medical therapy per cardiology. This morning, the patient was somnolent with repeat blood gas demonstrating a pH of 7.1 with a pCO2 of 83 and pO2 of 68. The patient was subsequently placed on noninvasive positive pressure ventilatory support. Unfortunately, the patient's volumes were suboptimal, even on AVAPS therapy. Repeat blood gas after 1 hour of PAP therapy revealed no significant interval change. In light of the patient's full CODE STATUS, the decision was made to proceed with intubation. [facility] Medical History Essential hypertension Morbid obesity with BMI of 40.0-44.9, adult Hypothermia Cardiomyopathy Chronic anemia Hypoxia History of diabetes mellitus Acute metabolic encephalopathy due to hypoglycemia History of stroke Chronic kidney disease Altered level of consciousness Non-pressure chronic ulcer of other 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 Chronic kidney disease (CKD) Type 2 diabetes mellitus with hypoglycemia Diabetes mellitus with diabetic polyneuropathy Type 2 diabetes mellitus with foot ulcer Diabetes mellitus with diabetic polyneuropathy Dyspnea Ischemic cardiomyopathy History of CVA (cerebrovascular accident) Atherosclerosis of coronary artery without angina pectoris Type 2 diabetes mellitus Secondary pulmonary arterial hypertension Chronic combined systolic and diastolic CHF (congestive heart failure) Essential hypertension Obesity Chronic kidney disease (CKD) GI bleed (01/2022) Anemia Diabetes mellitus type 2 in obese Hyperlipidemia Home Medications ?Medication ?Instructions ?Recorded ?Last Taken ?Type atorvastatin 40 mg tablet 40 mg PO QHS CHOLESTEROL 02/22/22 Unknown History aspirin 81 mg tablet,delayed 81 mg PO DAILY [facility] 06/03/22 Unknown History release (Adult Aspirin Regimen) dapagliflozin propanediol 10 mg 10 mg PO DAILY DIABETES #90 tabs 07/12/24 Unknown Rx tablet (Farxiga) blood sugar diagnostic (Accu-Chek 07/13/24 Unknown History Alvina Plus test strips) fluoxetine 10 mg capsule 10 mg PO DAILY DEPERSSION 07/13/24 Unknown History insulin lispro 100 unit/mL 15 unit subcut ACHS DM 07/13/24 Unknown History subcutaneous pen (Humalog KwikPen (U-100) Insulin) amlodipine 5 mg tablet 5 mg PO DAILY HEART #0 tabs 07/18/24 Unknown Rx vitamin B complex (Complex B-100 1 tab PO DAILY [facility] 08/19/24 Unknown History tablet,extended release) carvedilol 12.5 mg tablet 12.5 mg PO BIDCM #30 tabs 08/22/24 Unknown Rx losartan 50 mg tablet 50 mg PO DAILY #30 tabs 08/22/24 Unknown Rx furosemide 40 mg tablet 40 mg PO BID #60 tabs 01/30/25 Unknown Rx metolazone 5 mg tablet 5 mg PO DAILY [facility] 01/30/25 Unknown History acetaminophen 325 mg tablet 650 mg PO Q6H PRN Pain 1-10 Or 02/05/25 Unknown History Fever >100.7 Allergy/AdvReac Type Severity Reaction Status Date / Time No Known Allergies Allergy Verified 02/05/25 09:50 Family History Father Diabetes Heart disease CAD (coronary artery disease) Mother Heart disease Surgical History History of coronary artery stent placement (09/2013) H/O vein stripping Status post angioplasty with stent Social History household members: family Smoking Status: Former smoker how long ago did patient quit smokin years ago alcohol intake: never substance use type: does not use caffeine: Yes ROS Review of Systems ROS Unobtainable: due to mental status Physical Exam Const Constitutional Narrative: Somnolent but arousable to verbal and tactile stimulation. General Appearance: lethargic and ill appearing HEENT normocephalic and head/scalp atraumatic Eyes PERRL, EOMs intact bilaterally and conjunctivae normal Neck supple General: trachea midline Chest inspection of chest normal Resp Resp Narrative: Poor patient dependent inspiratory effort Auscultation: diminished lung sounds Cardio regular rate and regular rhythm GI normal to inspection, nondistended, normoactive bowel sounds Extremity General Extremity: edema; Negative for clubbing Skin Skin Narrative: Wrapped lower extremities. Neuro no focal motor deficits Psych Mood & Affect: flat affect Lab / Micro Data 02/08/25 05:35 02/08/25 05:35 Labs: Laboratory Results - last 24 hr 02/07/25 08:46: Sodium 140, Potassium 5.1, Chloride 104, Carbon Dioxide 20.2 L, Anion Gap 16 H, BUN 80 H, Creatinine 2.52 H, Estim Creat Clear Calc 23.84 L, Est GFR (MDRD) Non-Af 19 L, BUN/Creatinine Ratio 31.6 H, Glucose 222 H, Calcium 9.0 02/07/25 11:45: POC Glucose 229 H 02/07/25 16:24: POC Glucose 239 H 02/07/25 21:25: POC Glucose 165 H 02/08/25 05:35: WBC 11.2 H, RBC 3.63 L, Hgb 7.7 L, Hct 28.1 L, MCV 77.4 L, MCH 21.2 L, MCHC 27.4 L D, RDW Std Deviation 46.5 H, RDW Coeff of Bulmaro 16.4 H, Plt Count 286, MPV 10.2, Immature Gran % (Auto) 1.800 H, Neut % (Auto) 86.6 H, Lymph % (Auto) 3.8 L, [place] % (Auto) 6.8, Eos % (Auto) 0.6, Baso % (Auto) 0.4, Absolute Neuts (auto) 9.7 H, Absolute Lymphs (auto) 0.43 L, Nucleated RBC % 0.2, Sodium 139, Potassium 5.1, Chloride 103, Carbon Dioxide 21.7, Anion Gap 14, BUN 86 H, Creatinine 2.60 H, Estim Creat Clear Calc 23.18 L, Est GFR (MDRD) Non-Af 19 L, BUN/Creatinine Ratio 33.2 H, Glucose 135 H, Calcium 9.1 Micro: Microbiology 02/08/25 00:05 Stool Stool Occult Blood (TREVOR) - Final 02/05/25 12:15 Blood Culture (Wb) - Left Wrist Blood Culture - Preliminary No growth in 48 hours. 02/05/25 12:04 Blood Culture (Wb) - Right Hand Blood Culture - Preliminary No growth in 48 hours. 02/05/25 11:20 Urine Catheter - Catheter Urine Culture - Final Presumptive E. coli ABG Data ABG results: ABG 02/08/25 02/08/25 08:47 08:54 Specimen Type ART ART Sample Site R Radial R Radial pH 7.11 L* 7.11 L* Bicarbonate Actual 26.2 H 26.5 H Total CO2 29 29 Base Excess -3 L -3 L O2 Saturation 84 L 87 L O2 % 10.0 ABG pCO2 83.0 H* 83.3 H* ABG pO2 68 L 72 L Harvey Test Positive O2 Delivery Device HFNC Not entered Vent Mode Not entered Not entered Crit Call To/Read Back Yes Yes Blood Gas Notified Whom BROWN Blood Gas Notified Time 08:48:45 Rhythm Strip Rhythm Strip: Sinus Rhythm Rate: 104 Charges/Coding Procedures Hospitalists Procedures: 69504 Critical Care 1st Hr
--- NOTE | 2025-02-08 09:28 | NURSING ---
Dr Pool at bedside for new consult. Patient Hypoxic with shallow, labored breaths, lung sounds very diminished on 10L high flow nasal cannula. Patient placed on Bipap per verbal order from Dr Pool. Repeating ABG in 1 Hr and will continue to monitor.
--- NOTE | 2025-02-08 09:30 | RAD_ITS ---
PROCEDURE: CHEST 1 VIEW (PORTABLE) 02/08/2025 REASON FOR EXAM: RESPIRATORY FAILURE TECHNIQUE: Frontal view of the chest. COMPARISON: Comparison is made with prior study dated February 05, 2025. FINDINGS: Hardware: EKG electrodes are seen. Heart: Heart size is moderately enlarged. Lungs: Progressive bilateral pleural effusions left greater than right with bibasilar atelectasis and/or infiltration superimposed on CHF. Atherosclerotic calcification of the aortic arch. Bones: Degenerative changes are identified within the thoracic spine. Other: RAD/Chest 1 View (Portable) IMPRESSION: Progressive bilateral pleural effusions worse on the left side with bibasilar a telectasis and worsening CHF. Reading Location: [facility]
[2025-02-08 10:41] LABS: Allen Test Positive; Base Excess -3 mmol/L (-2 to +2); Bicarbonate 26.9 mmol/L (22-26); Blood Gas Specimen Type ART; Mode Not entered; O2 Delivery Device BiPAP; PEEP 8; PO2 86 mmHG (75-100); RR 12; SITE L Radial; SO2 91 % (95-99); Time Given 10:38:53; Total Carbon Dioxide 29 mmol/L; pCO2 83.2 mmHg (35-45); pH 7.12 (7.35-7.45)
[2025-02-08] MEDS: Midazolam 2 MG/2 ML Syringe 4 MG IV (11:01)
[2025-02-08] MEDS: Etomidate 20 MG/10 ML Vial IV (11:02)
[2025-02-08] MEDS: dexMEDEtomidine 400 MCG in 0.9% Normal Saline (100mL Bag) 96 ML 14.2 MCG CONT INF ×3 (11:05→22:57)
[2025-02-08] MEDS: fentaNYL drip 100 ML 15 MCG CONT INF (11:05)
--- NOTE | 2025-02-08 11:30 | NURSING ---
1045-Dr Pool notified of repeat ABG result. Patient remains on Bipap at time of ABG with minimal improvement, pt is more difficult to arouse, requiring noxious stimulation to open eyes. Dr Pool made the decision to intubate. 1105-Patient tolerated intubation without complication with #7.5 ETT, 23 cm@ the lip. Dr Pool then placed the OG tube with use of the glidescope. The Patient became very agitated and was fighting ventilator soon after. Received verbal order to start fentanyl gtt at 150 mcg/hr and start precedex as ordered. Immediately after intubation, Dr Pool began to prepare for right IJ Central Line insertion for poor IV access and Levophed infusion that was ordered for hypotension after intubation. Right IJ central line placed without complication and CHG dressing applied per policy. STAT portable Chest X-ray obtained and viewed by Dr Pool at the bedside. ETT, OG, and central line all in acceptable position for use.
--- NOTE | 2025-02-08 11:33 | PCM.OP.PRO2 ---
Procedures Hospitalists Procedures: [id number] Insert Emergency Airway Non-invasive Procedural Procedure Information Date of Procedure: 02/08/25 Description of procedure: Intubation Indication: Respiratory Failure Consent was obtained from: Done emergently The patient was placed in the appropriate sniffing position. Preoxygenated sedation via BIPAP was provided for a minimum of 3 minutes. The patient had continuous cardiac as well as pulse oximetry monitoring during the procedure. Procedure sedation was provided by the administration of 4 mg of versed and 20mg of etomidate. Direct laryngoscopy was then performed using a number 3 MAC blade, which revealed a grade 1 view. A 7.5 mm endotracheal tube was visualized advancing between the cords to the level of 23 cm at the lip. The stylette was then removed and discarded. Tube placement was confirmed by fogging in the tube along with equal and bilateral breath sounds. Colorimetric change was visualized on the CO2 meter. The cuff was then inflated and the tube secured using a commercially available device. A good pulse oximetry waveform was seen on the monitor throughout the procedure. A portable chest x-ray has been ordered to confirm appropriate placement. The patient tolerated the procedure well.
--- NOTE | 2025-02-08 11:35 | PCM.OP.PRO2 ---
Procedures Hospitalists Procedures: [id number] Insert Non-tunnel CV Cath Non-invasive Procedural Procedure Information Date of Procedure: 02/08/25 Description of procedure: Central Venous Catheter Indication: Hypotension Consent was obtained from: Done emergently A time-out was completed verifying correct patient, procedure, site, positioning, and special equipment if applicable. The patient was placed in a dependent position appropriate for central line placement based on the vein to be cannulated. The patient's right neck was prepped and draped in a sterile fashion. 1% lidocaine was used to anesthetize the surrounding skin area. A triple-lumen catheter was introduced into the right IJ using the Seldinger technique and under ultrasound guidance. The catheter was threaded smoothly over the guidewire and appropriate blood return was obtained. Each lumen of the catheter was evacuated of air and flushed with sterile saline. The catheter was then sutured in place to the skin and a sterile dressing applied. Chest x-ray to confirm appropriate positioning is pending. ULTRASOUND GUIDANCE STATEMENT (Vascular Access): I performed ultrasound image acquisition and interpretation for needle placement during the procedure. The vessel was identified and found to be free of thrombosis by compression technique. A safe point of entry was marked at the skin in an angle for axis was determined. The needle was guided by obtaining free-flowing fluid and by real-time visualization.
--- NOTE | 2025-02-08 11:40 | RAD_ITS ---
PROCEDURE: CXR FOR LINE PLACEMENT 02/08/2025 REASON FOR EXAM: ETT, OG, RIGHT IJ CVC TECHNIQUE: AP portable upright chest. COMPARISON: Chest x-ray of earlier on 02/08/2025 RAD/CXR for Line Placement IMPRESSION: Bilateral pleural effusions and the appearance of the lung parenchyma appears u nchanged from the prior chest x-ray of earlier the same day. Interval placement of endotracheal tube, with tip approximately 4 cm above the asia.. Interval placement of nasogastric tube, with tip projecting of the proximal to mid stomach. A right jugular central venous catheter is seen, with tip projecting over the S VC. No pneumothorax is noted. The cardiomediastinal silhouette is unchanged. Reading Location: [place] [id number]
[2025-02-08 11:42] LABS: Ferritin 63 ng/mL (22-378); Iron 16 ug/dL (50-170); Iron Binding Capacity,Total 299 ug/dL (250-450); Iron Binding Capacity,Unsat 283 ug/dL (228-428); LDH 203 U/L (84-246)
[2025-02-08] MEDS: Pantoprazole Sodium 40 MG in 0.9% Normal Saline (100mL MB+) 100 ML 330 MG IV (12:39)
[2025-02-08] MEDS: Heparin Injection (Vial) 5,000 UNIT/ML VIAL 5000 UNIT SC ×2 (12:40→21:32)
--- NOTE | 2025-02-08 12:43 | PN.CARD_ITS ---
Subjective Subjective Patient is intubated, sedated. Patient just got intubated this morning because of worsening ABGs. She continues to remain on 20 mg/h of IV Lasix and is not making significant amount of urine. Nephrology following her. Objective Data Vital Signs: Vital Signs Temp Pulse Resp BP Pulse Ox O2 Del Method O2 Flow Rate 95.7 F L 74 14 96/59 L 100 Bi-pap 10 02/08/25 12:15 02/08/25 12:39 02/08/25 12:39 02/08/25 12:15 02/08/25 12:39 02/08/25 10:00 02/08/25 08:46 FiO2 80 02/08/25 12:39 Oxygen Flow Rate (L/min) 10 Oxygen Delivery Method Bi-pap Weight: 251 lb 1.704 oz Body Mass Index (BMI) 41.1 Intake & Output: Intake and Output for Last 24 Hours 02/06/25 02/07/25 02/08/25 23:59 23:59 23:59 Intake Total 195.74 / 195.74 700 / 700 53.55 / 53.55 Output Total 1050 / 1050 1140 / 1215 200 / 200 Balance -854.26 / -854.26 -440 / -515 -146.45 / -146.45 Lab / Micro Data 02/08/25 05:35 02/08/25 05:35 Labs: Laboratory Results - last 24 hr 02/07/25 16:24: POC Glucose 239 H 02/07/25 21:25: POC Glucose 165 H 02/08/25 05:35: WBC 11.2 H, RBC 3.63 L, Hgb 7.7 L, Hct 28.1 L, MCV 77.4 L, MCH 21.2 L, MCHC 27.4 L D, RDW Std Deviation 46.5 H, RDW Coeff of Bulmaro 16.4 H, Plt Count 286, MPV 10.2, Immature Gran % (Auto) 1.800 H, Neut % (Auto) 86.6 H, Lymph % (Auto) 3.8 L, Pitt % (Auto) 6.8, Eos % (Auto) 0.6, Baso % (Auto) 0.4, Absolute Neuts (auto) 9.7 H, Absolute Lymphs (auto) 0.43 L, Nucleated RBC % 0.2, Sodium 139, Potassium 5.1, Chloride 103, Carbon Dioxide 21.7, Anion Gap 14, BUN 86 H, C reatinine 2.60 H, Estim Creat Clear Calc 23.18 L, Est GFR (MDRD) Non-Af 19 L, B UN/Creatinine Ratio 33.2 H, Glucose 135 H, Calcium 9.1, Iron 16 L, TIBC 299, I treva Saturation 5.0 L, Unsaturated IBC 283, Ferritin 63, Lactate Dehydrogenase 203 Micro: Microbiology 02/08/25 00:05 Stool Stool Occult Blood (TREVOR) - Final 02/05/25 12:15 Blood Culture (Wb) - Left Wrist Blood Culture - Preliminary No growth in 48 hours. 02/05/25 12:04 Blood Culture (Wb) - Right Hand Blood Culture - Preliminary No growth in 48 hours. ABG Data ABG results: ABG 02/08/25 02/08/25 02/08/25 08:47 08:54 10:37 Specimen Type ART Cancelled ART Sample Site R Radial Cancelled L Radial pH 7.11 L* Cancelled 7.12 L* Bicarbonate Actual 26.2 H Cancelled 26.9 H Total CO2 29 Cancelled 29 Base Excess -3 L Cancelled -3 L O2 Saturation 84 L Cancelled 91 L O2 % 10.0 Cancelled 80.0 ABG pCO2 83.0 H* Cancelled 83.2 H* ABG pO2 68 L Cancelled 86 Harvey Test Positive Cancelled Positive Respiration Rate Cancelled 12 O2 Delivery Device HFNC Cancelled BiPAP Liter Flow Cancelled Minute Volume Cancelled Vent Mode Not entered Cancelled Not entered Inspiratory Time Cancelled Expiratory Time Cancelled Tidal Volume Cancelled Mean Airway Pressure Cancelled POC PEEP Cancelled 8 Peak Inspir Pressure Cancelled POC Pressure Suppt Cancelled Pressure Control Cancelled Pressure High Cancelled Pressure Low Cancelled Time High Cancelled Time Low Cancelled EPAP Cancelled IPAP Cancelled Blood Gas Comments Cancelled Crit Call To/Read Back Yes Cancelled Yes Blood Gas Notified Whom BROWN Cancelled BROWN Blood Gas Notified Time 08:48:45 Cancelled 10:38:53 Clinical Comments Cancelled Rhythm Strip Rhythm Strip: Sinus Rhythm Rate: 104 Cardiology Labs/Tests 02/08/25 05:35: WBC 11.2 H, RBC 3.63 L, Hgb 7.7 L, Hct 28.1 L, MCV 77.4 L, MCH 21.2 L, MCHC 27.4 L D, Plt Count 286, MPV 10.2, Immature Gran % (Auto) 1.800 H, Neut % (Auto) 86.6 H, Lymph % (Auto) 3.8 L, Pitt % (Auto) 6.8, Eos % (Auto) 0.6, Baso % (Auto) 0.4, Absolute Neuts (auto) 9.7 H, Nucleated RBC % 0.2, Sodium 139, Potassium 5.1, Chloride 103, Carbon Dioxide 21.7, Anion Gap 14, BUN 86 H, C reatinine 2.60 H, Est GFR (MDRD) Non-Af 19 L, BUN/Creatinine Ratio 33.2 H, G lucose 135 H, Calcium 9.1, Iron 16 L, TIBC 299, Iron Saturation 5.0 L, Ferritin 63 02/08/25 08:47: pH 7.11 L*, Bicarbonate Actual 26.2 H, Base Excess -3 L, O2 Saturation 84 L, ABG pCO2 83.0 H*, ABG pO2 68 L, Harvey Test Positive 02/08/25 08:54: pH Cancelled, Bicarbonate Actual Cancelled, Base Excess Cancelled, O2 Saturation Cancelled, ABG pCO2 Cancelled, ABG pO2 Cancelled, Harvey Test Cancelled 02/08/25 10:37: pH 7.12 L*, Bicarbonate Actual 26.9 H, Base Excess -3 L, O2 Saturation 91 L, ABG pCO2 83.2 H*, ABG pO2 86, Harvey Test Positive Rhythm: EKG: ECHO: Stress Test: Cardiac Cath: PCI: CT Surgery: Holter monitor: EPS: PPM: CXR: Chest CT Scan: Radiography Diagnostic Testing: Radiology Impression Chest X-Ray 02/08/25 09:30 IMPRESSION: Progressive bilateral pleural effusions worse on the left side with bibasilar atelectasis and worsening CHF. Reading Location: [id number] Chest X-Ray 02/08/25 11:40 IMPRESSION: Bilateral pleural effusions and the appearance of the lung parenchyma appears unchanged from the prior chest x-ray of earlier the same day. Interval placement of endotracheal tube, with tip approximately 4 cm above the asia.. Interval placement of nasogastric tube, with tip projecting of the proximal to mid stomach. A right jugular central venous catheter is seen, with tip projecting over the SVC. No pneumothorax is noted. The cardiomediastinal silhouette is unchanged. Reading Location: [place] [address] Physical Exam Const Constitutional Narrative: Intubated, sedated Resp Resp Narrative: No significant crackles heard laterally and in the anterior chest. Bilateral air entry. Cardio Cardio Narrative: Jugular veins do not appear distended. Extremity Extremity Narrative: Both lower extremities are wrapped in Addy bandages. About the knee there is no significant edema. Assessment & Plan Assessment/Plan (1) Acute on chronic combined systolic (congestive) and diastolic (congestive) heart failure: PLAN: Patient's most recent echo on this admission shows that her ejection fraction has dropped from 35% down to 15%. She does have segmental wall motion abnormalities in the inferior and posterior segments the remainder of the LV is globally dilated. Reasonable to continue IV Lasix at this time. Currently does not appear to be requiring pressors. If required she could be started on Levophed (2) Secondary pulmonary arterial hypertension: PLAN: Patient's pulmonary pressures estimated 58 mmHg. (3) Chronic kidney disease (CKD): QUALIFIERS: Chronic kidney disease stage: stage 4 (GFR 15-29) Q ualified Code(s): N18.4 - Chronic kidney disease, stage 4 (severe) PLAN: Patient's chronic creatinine usually runs around 2.0. Creatinine appears to be slowly creeping up. Patient is not making significant amount of urine despite the high dose of Lasix that she is receiving. Nephrology is seeing the patient. Charges/Coding Visit Charges Inpatient E&M: 52438 [facility] L1
[2025-02-08 12:44] LABS: Allen Test Positive; Base Excess 1 mmol/L (-2 to +2); Bicarbonate 27.2 mmol/L (22-26); Blood Gas Specimen Type ART; Mode AC; O2 Delivery Device Adult Vent; PEEP 5; PO2 86 mmHG (75-100); RR 14; SITE L Radial; SO2 95 % (95-99); Total Carbon Dioxide 29 mmol/L; pCO2 53.3 mmHg (35-45); pH 7.32 (7.35-7.45)
[2025-02-08 12:55] LABS: Bedside Glucose 128 mg/dL (74-106)
[2025-02-08 13:22] LABS: Hemoglobin 6.9 g/dL (12.0-15.0); Immature Platelet Fraction 1.2 % (1.0-7.9); POSITIVE MORPHOLOGY YES; Platelet Count 236 K/mm3 (150-450); Reticulocyte Count 1.81 % (0.5-1.5)
--- NOTE | 2025-02-08 14:02 | PCM.PN.REN ---
Subjective Subjective Patient was intubated this afternoon. Objective Data Objective Data Vital Signs: Vital Signs Temp Pulse Resp BP Pulse Ox O2 Del Method O2 Flow Rate 96.4 F L 67 16 101/72 100 Mechanical Ventilator 10 02/08/25 13:00 02/08/25 13:00 02/08/25 13:00 02/08/25 13:00 02/08/25 13:00 02/08/25 13:00 02/08/25 08:46 FiO2 80 02/08/25 13:00 Oxygen Flow Rate (L/min) 10 Oxygen Delivery Method Mechanical Ventilator Weight: 113.9 kg Body Mass Index (BMI) 41.1 Intake & Output: Intake and Output for Last 24 Hours 02/06/25 02/07/25 02/08/25 23:59 23:59 23:59 Intake Total 195.74 / 195.74 700 / 700 211.04 / 211.04 Output Total 1050 / 1050 1140 / 1215 315 / 315 Balance -854.26 / -854.26 -440 / -515 -103.96 / -103.96 Lab / Micro Data 02/08/25 12:50 02/08/25 05:35 Labs: Laboratory Results - last 24 hr 02/07/25 16:24: POC Glucose 239 H 02/07/25 21:25: POC Glucose 165 H 02/08/25 05:35: WBC 11.2 H, RBC 3.63 L, Hgb 7.7 L, Hct 28.1 L, MCV 77.4 L, MCH 21.2 L, MCHC 27.4 L D, RDW Std Deviation 46.5 H, RDW Coeff of Bulmaro 16.4 H, Plt Count 286, MPV 10.2, Immature Gran % (Auto) 1.800 H, Neut % (Auto) 86.6 H, Lymph % (Auto) 3.8 L, Cooke % (Auto) 6.8, Eos % (Auto) 0.6, Baso % (Auto) 0.4, Absolute Neuts (auto) 9.7 H, Absolute Lymphs (auto) 0.43 L, Nucleated RBC % 0.2, Sodium 139, Potassium 5.1, Chloride 103, Carbon Dioxide 21.7, Anion Gap 14, BUN 86 H, Creatinine 2.60 H, Estim Creat Clear Calc 23.18 L, Est GFR (MDRD) Non-Af 19 L, BUN/Creatinine Ratio 33.2 H, Glucose 135 H, Calcium 9.1, Iron 16 L, TIBC 299, Iron Saturation 5.0 L, Unsaturated IBC 283, Ferritin 63, Lactate Dehydrogenase 203 02/08/25 11:53: POC Glucose 128 H 02/08/25 12:50: Hgb 6.9 L, Hct 25.0 L, Immature Plt Fraction 1.2, Retic Count 1.81 H, Immature Retic Fraction 25.70 H, Retic Hgb Equivalent 16.0 L Micro: Microbiology 02/08/25 00:05 Stool Stool Occult Blood (TREVOR) - Final 02/05/25 12:15 Blood Culture (Wb) - Left Wrist Blood Culture - Preliminary No growth in 48 hours. 02/05/25 12:04 Blood Culture (Wb) - Right Hand Blood Culture - Preliminary No growth in 48 hours. 02/05/25 11:20 Urine Catheter - Catheter Urine Culture - Final Presumptive E. coli 02/05/25 16:50 Nasal Secretion MRSA (PCR) - Final 02/05/25 16:50 Wound - Leg, Left Skin and Soft Tissue MRSA/MSSA (PCR - Final ABG Data ABG results: ABG 02/08/25 02/08/25 02/08/25 08:47 08:54 10:37 Specimen Type ART Cancelled ART Sample Site R Radial Cancelled L Radial pH 7.11 L* Cancelled 7.12 L* Bicarbonate Actual 26.2 H Cancelled 26.9 H Total CO2 29 Cancelled 29 Base Excess -3 L Cancelled -3 L O2 Saturation 84 L Cancelled 91 L O2 % 10.0 Cancelled 80.0 ABG pCO2 83.0 H* Cancelled 83.2 H* ABG pO2 68 L Cancelled 86 Harvey Test Positive Cancelled Positive Respiration Rate Cancelled 12 O2 Delivery Device HFNC Cancelled BiPAP Liter Flow Cancelled Minute Volume Cancelled Vent Mode Not entered Cancelled Not entered Inspiratory Time Cancelled Expiratory Time Cancelled Tidal Volume Cancelled Mean Airway Pressure Cancelled POC PEEP Cancelled 8 Peak Inspir Pressure Cancelled POC Pressure Suppt Cancelled Pressure Control Cancelled Pressure High Cancelled Pressure Low Cancelled Time High Cancelled Time Low Cancelled EPAP Cancelled IPAP Cancelled Blood Gas Comments Cancelled Crit Call To/Read Back Yes Cancelled Yes Blood Gas Notified Whom BROWN Cancelled BROWN Blood Gas Notified Time 08:48:45 Cancelled 10:38:53 Clinical Comments Cancelled 02/08/25 12:42 Specimen Type ART Sample Site L Radial pH 7.32 L Bicarbonate Actual 27.2 H Total CO2 29 Base Excess 1 O2 Saturation 95 O2 % 90.0 ABG pCO2 53.3 H ABG pO2 86 Harvey Test Positive Respiration Rate 14 O2 Delivery Device Adult Vent Liter Flow Minute Volume Vent Mode AC Inspiratory Time Expiratory Time Tidal Volume 450.0 Mean Airway Pressure POC PEEP 5 Peak Inspir Pressure POC Pressure Suppt Pressure Control Pressure High Pressure Low Time High Time Low EPAP IPAP Blood Gas Comments Crit Call To/Read Back Blood Gas Notified Whom Blood Gas Notified Time Clinical Comments Radiography Diagnostic Testing: Radiology Impression Chest X-Ray 02/08/25 09:30 IMPRESSION: Progressive bilateral pleural effusions worse on the left side with bibasilar atelectasis and worsening CHF. Reading Location: [id number] Chest X-Ray 02/08/25 11:40 IMPRESSION: Bilateral pleural effusions and the appearance of the lung parenchyma appears unchanged from the prior chest x-ray of earlier the same day. Interval placement of endotracheal tube, with tip approximately 4 cm above the asia.. Interval placement of nasogastric tube, with tip projecting of the proximal to mid stomach. A right jugular central venous catheter is seen, with tip projecting over the SVC. No pneumothorax is noted. The cardiomediastinal silhouette is unchanged. [facility] Rhythm Strip Rhythm Strip: Sinus Rhythm Rate: 104 Physical Exam Narrative On ventilator support s1s2 no murmurs Diminished breath sounds abdomen soft Edema bilateral legs morillo + clear yellow urine in bag Assessment & Plan Assessment/Plan (1) ELIDA (acute kidney injury): (2) Chronic kidney disease (CKD): QUALIFIERS: Chronic kidney disease stage: stage 4 (GFR 15-29) Qualified Code(s): N18.4 - Chronic kidney disease, stage 4 (severe) PLAN: Plan Impression/Plan: Patient is a 74-year-old female with past history of type 2 diabetes mellitus, hypertension, CAD, ischemic cardiomyopathy with HFrEF (EF 15%), pulmonary hypertension, stroke, and hyperlipidemia. Patient presents to the hospital on 02/05/2025 with 1 week history of progressively worsening dyspnea and lower extremity edema. Patient was admitted to the hospital for treatment of acute hypoxic respiratory failure requiring NIV. Nephrology is following for ELIDA on CKD. -Hypervolemia acute kidney injury superimposed on CKD stage IV. Baseline SCr 1.80 to 2.00 mg/dL prior to this admission. Suspect ELIDA is secondary to cardiorenal syndrome. Furosemide infusion was increased to 20 mg/h on 02/06/2025. Serum creatinine is relatively stable at 2.60 mg/dL today (SCr was 2.52 yesterday). Patient was intubated today due to worsening respiratory status, volume overload (repeat chest x-ray showed worsening bilateral pleural effusions and CHF), recommend to continue on Lasix drip. Use Levophed if needed to maintain better blood pressures. May need to adjust hydralazine and carvedilol doses. Urine output yesterday around 1.1 L. Cumulative I&O net -1.3 L. Urine output today so far ~ 150 mL. No acute indication for TRAIN EXAMINER at this time, potassium and bicarb acceptable. Labs ordered for morning. - Acute respiratory failure intubated 02/08 Assessment and plan reviewed with Dr. Moss.
[2025-02-08 16:47] LABS: Bedside Glucose 97 mg/dL (74-106)
[2025-02-08] MEDS: fentaNYL drip 100 ML 10 MCG CONT INF (19:55)
[2025-02-08] MEDS: Atorvastatin Calcium 40 MG Tablet PO (21:33)
[2025-02-08 21:54] LABS: Bedside Glucose 108 mg/dL (74-106)
[2025-02-09] VITALS (42 sets, daily range): BP systolic 108–124; BP diastolic 44–66; PULSE 60–98; RESP 14; TEMP 36.4–38; O2SAT 88–98; BMI 40.8
[2025-02-09] MEDS: Furosemide 500 MG in Empty Viaflex 50 mL 1 EACH CONT INF (00:37)
[2025-02-09 04:39] LABS: Absolute Lymphocyte Count 0.99 X10^3/uL (0.83-4.51); Absolute Neutrophil Count 6.6 X10^3/uL (2.0-7.7); Basophil# 0.06 X10^3/uL; Basophil% 0.7 % (0-1); Eosinophil# 0.13 X10^3/uL; Eosinophils% 1.5 % (0-5); Hematocrit 24.8 % (37-47); Hemoglobin 7.1 g/dL (12.0-15.0); Lymphocyte # 0.99 X10^3/ul (0.83-4.51); Lymphocyte % 11.4 % (19-41); Mean Corp Hgb Conc 28.6 g/dL (32-36); Mean Corpuscular Volume 73.4 fL (81-99); Mean Platelet Vol. 9.8 fl (6.2-12.0); Monocyte# 0.85 X10^3/uL; Monocyte% 9.8 % (0-10); NRBC Flagged by Analyzer 0.2 % (0-5); Neutrophil # 6.61 X10^3/uL (2.7-7.7); Platelet Count 257 K/mm3 (150-450); RBC Distribution Width CV 16.6 % (11.6-14.6); RBC Distribution Width SD 43.6 fl (35.1-43.9); Red Blood Count 3.38 M/mm3 (4.2-5.4); White Blood Count 8.7 K/mm3 (4.4-11.0)
[2025-02-09] MEDS: hydrALAZINE 10 MG Tablet PO ×3 (05:05→21:05)
[2025-02-09] MEDS: Heparin Injection (Vial) 5,000 UNIT/ML VIAL 5000 UNIT SC ×3 (05:05→22:55)
[2025-02-09 05:07] LABS: BUN 88 mg/dL (4-19); BUN/Creat Ratio 35.5 RATIO (10-20); Calcium,Total 8.8 mg/dL (7.6-11.0); Carbon Dioxide 23.3 mmol/L (21.0-32.0); Creatinine, Serum 2.48 mg/dL (0.70-1.20); EST Glomerular Filtration Rate 20 (>60); Estimated Creatinine Clearance 24.21 ml/min (50-250); Glucose 159 mg/dL (70-99)
[2025-02-09 05:10] LABS: Anion Gap 15 (5-15); Chloride 102 mmol/L (98-108); Potassium 4.1 mmol/L (3.3-5.1); Sodium Level 141 mmol/L (133-145)
[2025-02-09] MEDS: dexMEDEtomidine 400 MCG in 0.9% Normal Saline (100mL Bag) 96 ML 14.2 MCG CONT INF ×3 (05:42→21:15)
[2025-02-09] MEDS: fentaNYL drip 100 ML 10 MCG CONT INF ×2 (05:43→16:40)
--- NOTE | 2025-02-09 08:25 | PN.CC_ITS ---
Assessment & Plan Assessment/Plan (1) Acute on chronic combined systolic (congestive) and diastolic (congestive) heart failure: (2) Urinary tract infection: (3) Acute respiratory failure with hypoxia and hypercarbia: (4) Chronic kidney disease (CKD): QUALIFIERS: Chronic kidney disease stage: stage 4 (GFR 15-29) Q ualified Code(s): N18.4 - Chronic kidney disease, stage 4 (severe) PLAN: Plan RECOMMENDATIONS: 1. Continue assist-control mode of mechanical ventilation. Wean FiO2 and PEEP as tolerated. 2. Transfuse 1 unit of packed red blood cells. Check H&H posttransfusion. 3. Antimicrobials to complete 7 days of therapy. 4. Ongoing diuresis along with goal-directed medical therapy per cardiology recommendations. 5. Okay to initiate tube feeding from my perspective. 6. Continue appropriate ICU prophylaxis. IMPRESSIONS: 1. Acute respiratory failure with hypoxemia and hypercapnia secondary to decompensated heart failure The patient was initially admitted to the hospital with acute decompensated congestive heart failure and UTI, but worsened from a respiratory perspective on the morning of February 08, with increasing oxygen requirement and lethargy. Subsequent ABG demonstrated acute CO2 retention, which was refractory to the use of noninvasive positive pressure ventilatory support. Therefore, the patient was intubated. The patient appears to have stabilized from a respiratory perspective following intubation. She will be continued on assist-control mode of mechanical ventilation, with a goal to wean FiO2 and PEEP as tolerated. Ongoing diuresis and goal-directed medical therapy will be deferred to cardiology. 2. Acute on chronic combined systolic and diastolic heart failure Continue medical management per cardiology recommendations. Unclear long-term prognosis. 3. Acute on chronic kidney disease Suspect that this is related to underlying cardiorenal syndrome. The patient will be maintained on diuretics, as tolerated by hemodynamics and renal function. 4. Morbid obesity/anemia/diabetes mellitus/history of CVA/depression/anxiety Complicates care, management, recovery and prognosis. Continue supportive measures as noted above. Okay to initiate tube feeding today for nutritional support. TIME: 34 minutes of critical care time, independent of procedures, was spent addressing the patient's acute respiratory failure with hypoxemia and hypercapnia, acute decompensated congestive heart failure, acute on chronic kidney disease, review of all data and collaboration with the care team. Subjective Subjective The patient was seen and examined at the bedside this morning. Events from the last 24 hours have been reviewed. The patient is currently afebrile, hemodynamically stable and maintaining appropriate oxygen saturations on assist- control mode mechanical ventilation with an FiO2 requirement of 40%. The patient is currently documented to be overall net -2.2 L for the hospitalization. White blood cell count is normal. Hemoglobin this morning was noted to be 7.1 g/dL with a normal platelet count. Creatinine is stable at 2.48. Objective Data Objective Data The patient's most recent lab work, culture data and imaging studies have all been personally reviewed. Surface echocardiogram demonstrated an ejection fraction of 15%. Preliminary urine culture was demonstrating growth of E. coli. Blood cultures have not demonstrated any growth to date. Sputum culture is currently pending. Vital Signs: Vital Signs Temp Pulse Resp BP Pulse Ox O2 Del Method O2 Flow Rate 98.7 F 66 14 124/52 H 96 Mechanical Ventilator 10 02/09/25 00:00 02/09/25 07:00 02/09/25 07:00 02/09/25 07:00 02/09/25 07:00 02/09/25 07:00 02/08/25 08:46 FiO2 40 02/09/25 07:00 Oxygen Flow Rate (L/min) 10 Oxygen Delivery Method Mechanical Ventilator Weight: 249 lb 9.012 oz Body Mass Index (BMI) 40.8 Intake & Output: Intake and Output for Last 24 Hours 02/07/25 02/08/25 02/09/25 23:59 23:59 23:59 Intake Total 700 / 700 573.04 / 717.24 313.60 / 313.60 Output Total 1140 / 1215 1140 / 1140 780 / 780 Balance -440 / -515 -566.96 / -422.76 -466.40 / -466.40 Lab / Micro Data Attestation: I reviewed the patient's lab results. 02/09/25 04:24 02/09/25 04:24 Labs: Laboratory Results - last 24 hr 02/08/25 05:35: Iron 16 L, TIBC 299, Iron Saturation 5.0 L, Unsaturated IBC 283, Ferritin 63, Lactate Dehydrogenase 203 02/08/25 11:53: POC Glucose 128 H 02/08/25 12:50: Hgb 6.9 L, Hct 25.0 L, Immature Plt Fraction 1.2, Retic Count 1.81 H, Immature Retic Fraction 25.70 H, Retic Hgb Equivalent 16.0 L 02/08/25 16:27: POC Glucose 97 02/08/25 21:31: POC Glucose 108 H 02/09/25 04:24: WBC 8.7, RBC 3.38 L, Hgb 7.1 L, Hct 24.8 L, MCV 73.4 L D, MCH 21.0 L, MCHC 28.6 L, RDW Std Deviation 43.6, RDW Coeff of Bulmaro 16.6 H, Plt Count 257, MPV 9.8, Immature Gran % (Auto) 0.600, Neut % (Auto) 76.0 H, Lymph % (Auto) 11.4 L, [place] % (Auto) 9.8, Eos % (Auto) 1.5, Baso % (Auto) 0.7, Absolute Neuts (auto) 6.6, Absolute Lymphs (auto) 0.99, Nucleated RBC % 0.2, Sodium 141, Potassium 4.1, Chloride 102, Carbon Dioxide 23.3, Anion Gap 15, BUN 88 H, C reatinine 2.48 H, Estim Creat Clear Calc 24.21 L, Est GFR (MDRD) Non-Af 20 L, B UN/Creatinine Ratio 35.5 H, Glucose 159 H, Calcium 8.8 Micro: Microbiology 02/08/25 11:15 Sputum, Induced/Lukens Gram Stain - Final 02/08/25 00:05 Stool Stool Occult Blood (TREVOR) - Final 02/05/25 12:15 Blood Culture (Wb) - Left Wrist Blood Culture - Preliminary No growth in 48 hours. 02/05/25 12:04 Blood Culture (Wb) - Right Hand Blood Culture - Preliminary No growth in 48 hours. 02/05/25 11:20 Urine Catheter - Catheter Urine Culture - Final Presumptive E. coli 02/05/25 16:50 Nasal Secretion MRSA (PCR) - Final 02/05/25 16:50 Wound - Leg, Left Skin and Soft Tissue MRSA/MSSA (PCR - Final ABG Data ABG results: ABG 02/08/25 02/08/25 02/08/25 08:47 08:54 10:37 Specimen Type ART Cancelled ART Sample Site R Radial Cancelled L Radial pH 7.11 L* Cancelled 7.12 L* Bicarbonate Actual 26.2 H Cancelled 26.9 H Total CO2 29 Cancelled 29 Base Excess -3 L Cancelled -3 L O2 Saturation 84 L Cancelled 91 L O2 % 10.0 Cancelled 80.0 ABG pCO2 83.0 H* Cancelled 83.2 H* ABG pO2 68 L Cancelled 86 Harvey Test Positive Cancelled Positive Respiration Rate Cancelled 12 O2 Delivery Device HFNC Cancelled BiPAP Liter Flow Cancelled Minute Volume Cancelled Vent Mode Not entered Cancelled Not entered Inspiratory Time Cancelled Expiratory Time Cancelled Tidal Volume Cancelled Mean Airway Pressure Cancelled POC PEEP Cancelled 8 Peak Inspir Pressure Cancelled POC Pressure Suppt Cancelled Pressure Control Cancelled Pressure High Cancelled Pressure Low Cancelled Time High Cancelled Time Low Cancelled EPAP Cancelled IPAP Cancelled Blood Gas Comments Cancelled Crit Call To/Read Back Yes Cancelled Yes Blood Gas Notified Whom BROWN Cancelled BROWN Blood Gas Notified Time 08:48:45 Cancelled 10:38:53 Clinical Comments Cancelled 02/08/25 12:42 Specimen Type ART Sample Site L Radial pH 7.32 L Bicarbonate Actual 27.2 H Total CO2 29 Base Excess 1 O2 Saturation 95 O2 % 90.0 ABG pCO2 53.3 H ABG pO2 86 Harvey Test Positive Respiration Rate 14 O2 Delivery Device Adult Vent Liter Flow Minute Volume Vent Mode AC Inspiratory Time Expiratory Time Tidal Volume 450.0 Mean Airway Pressure POC PEEP 5 Peak Inspir Pressure POC Pressure Suppt Pressure Control Pressure High Pressure Low Time High Time Low EPAP IPAP Blood Gas Comments Crit Call To/Read Back Blood Gas Notified Whom Blood Gas Notified Time Clinical Comments Radiography Diagnostic Testing: Radiology Impression Chest X-Ray 02/08/25 09:30 IMPRESSION: Progressive bilateral pleural effusions worse on the left side with bibasilar atelectasis and worsening CHF. Reading Location: [id number] Chest X-Ray 02/08/25 11:40 IMPRESSION: Bilateral pleural effusions and the appearance of the lung parenchyma appears unchanged from the prior chest x-ray of earlier the same day. Interval placement of endotracheal tube, with tip approximately 4 cm above the asia.. Interval placement of nasogastric tube, with tip projecting of the proximal to mid stomach. A right jugular central venous catheter is seen, with tip projecting over the SVC. No pneumothorax is noted. The cardiomediastinal silhouette is unchanged. Reading Location: [place] [address] Rhythm Strip Rhythm Strip: Sinus Rhythm Rate: 104 Physical Exam Const Constitutional Narrative: Intubated, sedated and mechanically ventilated. General Appearance: ill appearing and patient mechanically ventilated HEENT normocephalic and head/scalp atraumatic Mouth: endotracheal tube in place and OG tube in place Eyes PERRL, EOMs intact bilaterally and conjunctivae normal Neck supple General: trachea midline and CVC in place Chest inspection of chest normal Resp Auscultation: diminished lung sounds Cardio regular rate and regular rhythm GI normal to inspection, nondistended, normoactive bowel sounds Extremity General Extremity: edema; Negative for clubbing Skin Skin Narrative: Wrapped lower extremities. Neuro Sensorium / Orientation: sedated on vent Charges/Coding Procedures Hospitalists Procedures: 30083 Critical Care 1st Hr
--- NOTE | 2025-02-09 10:15 | PCM.PN.HOSP ---
Subjective Subjective Intubated and sedated, respiratory status is improving as she is on 40% FiO2 currently Objective Data Objective Data Vital Signs: Vital Signs Temp Pulse Resp BP Pulse Ox O2 Del Method O2 Flow Rate 98.7 F 95 14 124/52 H 94 Mechanical Ventilator 10 02/09/25 00:00 02/09/25 09:58 02/09/25 09:58 02/09/25 07:00 02/09/25 09:58 02/09/25 07:00 02/08/25 08:46 FiO2 40 02/09/25 09:58 Oxygen Flow Rate (L/min) 10 Oxygen Delivery Method Mechanical Ventilator Weight: 249 lb 9.012 oz Body Mass Index (BMI) 40.8 Intake & Output: Intake and Output for Last 24 Hours 02/08/25 02/09/25 02/10/25 03:59 03:59 03:59 Intake Total 700 / 700 789.84 / 814.04 96.80 / 96.80 Output Total 1240 / 1240 1340 / 1340 480 / 480 Balance -540 / -540 -550.16 / -525.96 -383.20 / -383.20 Lab / Micro Data 02/09/25 04:24 02/09/25 04:24 Labs: Laboratory Results - last 24 hr 02/08/25 05:35: Iron 16 L, TIBC 299, Iron Saturation 5.0 L, Unsaturated IBC 283, Ferritin 63, Lactate Dehydrogenase 203 02/08/25 11:53: POC Glucose 128 H 02/08/25 12:50: Hgb 6.9 L, Hct 25.0 L, Immature Plt Fraction 1.2, Retic Count 1.81 H, Immature Retic Fraction 25.70 H, Retic Hgb Equivalent 16.0 L 02/08/25 16:27: POC Glucose 97 02/08/25 21:31: POC Glucose 108 H 02/09/25 04:24: WBC 8.7, RBC 3.38 L, Hgb 7.1 L, Hct 24.8 L, MCV 73.4 L D, MCH 21.0 L, MCHC 28.6 L, RDW Std Deviation 43.6, RDW Coeff of Bulmaro 16.6 H, Plt Count 257, MPV 9.8, Immature Gran % (Auto) 0.600, Neut % (Auto) 76.0 H, Lymph % (Auto) 11.4 L, [place] % (Auto) 9.8, Eos % (Auto) 1.5, Baso % (Auto) 0.7, Absolute Neuts (auto) 6.6, Absolute Lymphs (auto) 0.99, Nucleated RBC % 0.2, Sodium 141, Potassium 4.1, Chloride 102, Carbon Dioxide 23.3, Anion Gap 15, BUN 88 H, Creatinine 2.48 H, Estim Creat Clear Calc 24.21 L, Est GFR (MDRD) Non-Af 20 L, BUN/Creatinine Ratio 35.5 H, Glucose 159 H, Calcium 8.8 02/09/25 09:55: Crossmatch See Detail Micro: Microbiology 02/08/25 11:15 Sputum, Induced/Lukens Gram Stain - Final 02/08/25 00:05 Stool Stool Occult Blood (TREVOR) - Final 02/05/25 12:15 Blood Culture (Wb) - Left Wrist Blood Culture - Preliminary No growth in 48 hours. 02/05/25 12:04 Blood Culture (Wb) - Right Hand Blood Culture - Preliminary No growth in 48 hours. 02/05/25 11:20 Urine Catheter - Catheter Urine Culture - Final Presumptive E. coli 02/05/25 16:50 Nasal Secretion MRSA (PCR) - Final 02/05/25 16:50 Wound - Leg, Left Skin and Soft Tissue MRSA/MSSA (PCR - Final ABG Data ABG results: ABG 02/08/25 02/08/25 10:37 12:42 Specimen Type ART ART Sample Site L Radial L Radial pH 7.12 L* 7.32 L Bicarbonate Actual 26.9 H 27.2 H Total CO2 29 29 Base Excess -3 L 1 O2 Saturation 91 L 95 O2 % 80.0 90.0 ABG pCO2 83.2 H* 53.3 H ABG pO2 86 86 Harvey Test Positive Positive Respiration Rate 12 14 O2 Delivery Device BiPAP Adult Vent Vent Mode Not entered AC Tidal Volume 450.0 POC PEEP 8 5 Crit Call To/Read Back Yes Blood Gas Notified Whom BROWN Blood Gas Notified Time 10:38:53 Radiography Diagnostic Testing: Radiology Impression Chest X-Ray 02/08/25 11:40 IMPRESSION: Bilateral pleural effusions and the appearance of the lung parenchyma appears unchanged from the prior chest x-ray of earlier the same day. Interval placement of endotracheal tube, with tip approximately 4 cm above the asia.. Interval placement of nasogastric tube, with tip projecting of the proximal to mid stomach. A right jugular central venous catheter is seen, with tip projecting over the SVC. No pneumothorax is noted. The cardiomediastinal silhouette is unchanged. Reading Location: [place] [address] Rhythm Strip Rhythm Strip: Sinus Rhythm Rate: 104 Physical Exam Const General Appearance: intubated and patient mechanically ventilated HEENT normocephalic Eyes PERRL and conjunctivae normal Neck supple and no JVD Resp normal respiratory effort, no retractions and no use of accessory muscles Auscultation: Negative for crackles, rales, rhonchi or wheezes Cardio regular rate, regular rhythm, S1 normal heart sound, S2 normal heart sound and no murmurs GI soft to palpation and non-distended; Negative for hepatosplenomegaly Extremity no clubbing, cyanosis or edema Skin no rashes or lesions noted Neuro Sensorium / Orientation: sedated on vent Psych Appearance: intubated Assessment & Plan Assessment/Plan (1) Acute on chronic combined systolic (congestive) and diastolic (congestive) heart failure: (2) Cellulitis of right anterior lower leg: PLAN: Plan 1. Acute on chronic combined respiratory failure due to heart failure exacerbation: The patient is being admitted in ICU on BiPAP. ABG stat ordered. Discussed with the ED physician to watch for half an hour if she does not improve will need intubation prior to transfer to ICU. Currently on 6 L of oxygen. Lactic acidosis most likely due to pulmonary edema/hypoxia. Patient does not have signs and symptoms of sepsis. The patient not on home oxygen or NIPPV at home 02/06: ABG 7.21/50.7/133 at BiPAP 60% FiO2. Bicarb 22.Bicarb in BMP was 15.7 on 02/05. Probably bicarb and BMP are normal. Today's bicarb is 20. Continue BiPAP intermittently 02/07: The patient has been off BiPAP last night. On 4 to 5 L of oxygen. Gradually improving. 02/08: Patient also neutrophile flow oxygen, looks dyspneic at rest. ABG ordered. 02/09/2025: She was intubated yesterday currently FiO2 of 40% on the ventilator. Continue with Lasix drip 2. Acute on chronic combined heart failure: BNP about 30,000. Chest x-ray initially reviewed and shows pulmonary edema, cardiomegaly and blunting of both CP angles. Twelve-lead EKG sinus tachycardia, 104 bpm, QRS 168, QTc 531 ms. LBBB. 02/06: Total urine output 455 mL, 325 since last night. Discussed with the commercial light fixture assembler. Continue the same regimen 02/07: Urine output is low. On furosemide 20 mg/h. 1 dose of metolazone. Urine output 1050 mL documented yesterday. 300 mL since midnight. Counting Machine Operator consult reviewed and appreciated 02/08: Even on 20 mg Lasix per hour infusion, patient not putting good urine total 600 mL. Neurologist input needed. 02/09/2025: Continue with Lasix drip, currently intubated 3. Elevated troponin probably due to increased cardiac demand with suspicion of possible non-STEMI: Patient complained of nondescriptive chest pain. Lesion discussed with commercial light fixture assembler Dr. Cardona. Recommended enoxaparin 1 dose. Troponin 218, 241. Third troponin pending. EKG as described above. Patient has CAD status post stents, on aspirin and statin. Hold carvedilol because of CHF exacerbation/fluid overload and resume once euvolemic. 4. ELIDA on CKD stage IV: Patient baseline creatinine runs around 2.0 as in January 2025. Admitting BUN/creatinine 58/2.32 therefore ELIDA on CKD stage IV. Counting Machine Operator consulted. Patient has hyperkalemia, 5.5, high anion gap metabolic acidosis, AG 19, bicarb 15. ABG ordered as mentioned above. Kayexalate and hyperkalemia cocktail ordered. Repeat BMP after 4 hours. Hold losartan metolazone. 02/06: BUN/creatinine 70/2.45. Continue furosemide drip. Counting Machine Operator on board. 02/07: Today's BMP is pending. 02/08: BUN/creatinine 86/2.6. BMP yesterday was 3.5. 02/09/2025: Appreciate nephrology's assistance, renal function appears to be stable with creatinine 2.48 5. Chronic severe anemia: H&H 8.0/27.9%. MCV 75 RDW elevated 17.0. Possible chronic iron deficiency anemia. Monitor CBC. Iron workup ordered for tomorrow a.m.. 02/07: Hemoglobin dropped to 7.2%. It is microcytic with elevated RDW. Stool for occult blood ordered. H&H ordered for in the evening. Patient only on baby aspirin. 02/08: H&H 7.7/28%. Stool for occult blood negative. B12 was normal 635 07/2024. TSH normal. Cortisol 11.2 normal in July 2024. Anemia workup ordered. Reticulocyte panel and LDH ordered 02/09/2025: Iron is 16 with a normal TIBC and iron saturation of 5% with normal ferritin, she likely has a combination of anemia of chronic disease with iron deficiency. She has been transfused today, can likely give IV iron tomorrow 6. DM type II: Last A1c 5.2% in July 2024. Accu-Chek before meals and at bedtime with Humalog sliding scale coverage and hypoglycemia protocol. Most recent glucoses elevated, 259 BMP 5/51.135. 6. Chronic bilateral fifth metatarsal excision: Superficial ulcer of left lateral leg and contiguous cellulitis: MRSA wound and nasal screen ordered. IV cefazolin given in ED. IV ceftriaxone ordered 02/09/2025: Continue with antibiotics 7. Past history of CVA: History of remote left lacunar infarct. On aspirin and statin, continued 8. Depression and anxiety: On Flexotard continue DVT: SCDs Charges/Coding Visit Charges Inpatient E&M: 94676 Subs Hosp L2
[2025-02-09] MEDS: Insulin Lispro 100 UNIT/ML INSULN.PEN 15 UNIT SC ×2 (10:31→22:55)
[2025-02-09] MEDS: Insulin Lispro 100 UNIT/ML INSULN.PEN SC ×3 (10:31→22:56)
[2025-02-09] MEDS: Isosorbide DN 10 MG Tablet 5 MG PO ×2 (10:31→22:57)
[2025-02-09] MEDS: Carvedilol 6.25 MG Tablet PO ×2 (10:32→17:32)
[2025-02-09] MEDS: Polyethylene Glycol 3350 17 GM PACKET PO (10:32)
[2025-02-09] MEDS: FLUoxetine 10 MG Capsule PO (10:32)
[2025-02-09] MEDS: Aspirin E.C. 81 MG Tablet PO (10:32)
[2025-02-09] MEDS: Senna/Docusate Sodium 1 Tablet 2 TABLET PO ×2 (10:32→22:58)
[2025-02-09] MEDS: Vital High Protein 1,000 ML 20 ML GT (10:34)
[2025-02-09] MEDS: Pantoprazole Sodium 40 MG in 0.9% Normal Saline (100mL MB+) 100 ML 330 MG IV (10:34)
[2025-02-09] MEDS: Ceftriaxone 1 GM/50 ML BAG IV (10:57)
[2025-02-09] MEDS: metOLazone 5 MG Tablet PO (11:13)
[2025-02-09 11:59] LABS: Bedside Glucose 155 mg/dL (74-106)
--- NOTE | 2025-02-09 12:32 | PN.CARD_ITS ---
Subjective Subjective Patient seen and evaluated. Still intubated. And sedated. Objective Data Vital Signs: Vital Signs Temp Pulse Resp BP Pulse Ox O2 Del Method O2 Flow Rate 100.1 F H 66 14 112/45 L 96 Mechanical Ventilator 10 02/09/25 12:27 02/09/25 12:27 02/09/25 12:27 02/09/25 12:27 02/09/25 12:27 02/09/25 12:27 02/08/25 08:46 FiO2 40 02/09/25 12:27 Oxygen Flow Rate (L/min) 10 Oxygen Delivery Method Mechanical Ventilator Weight: 249 lb 9.012 oz Body Mass Index (BMI) 40.8 Intake & Output: Intake and Output for Last 24 Hours 02/07/25 02/08/25 02/09/25 23:59 23:59 23:59 Intake Total 700 / 700 573.04 / 717.24 609.37 / 609.37 Output Total 1140 / 1215 1140 / 1140 1430 / 1430 Balance -440 / -515 -566.96 / -422.76 -820.63 / -820.63 Lab / Micro Data 02/09/25 04:24 02/09/25 04:24 Labs: Laboratory Results - last 24 hr 02/08/25 11:53: POC Glucose 128 H 02/08/25 12:50: Hgb 6.9 L, Hct 25.0 L, Immature Plt Fraction 1.2, Retic Count 1.81 H, Immature Retic Fraction 25.70 H, Retic Hgb Equivalent 16.0 L 02/08/25 16:27: POC Glucose 97 02/08/25 21:31: POC Glucose 108 H 02/09/25 04:24: WBC 8.7, RBC 3.38 L, Hgb 7.1 L, Hct 24.8 L, MCV 73.4 L D, MCH 21.0 L, MCHC 28.6 L, RDW Std Deviation 43.6, RDW Coeff of Bulmaro 16.6 H, Plt Count 257, MPV 9.8, Immature Gran % (Auto) 0.600, Neut % (Auto) 76.0 H, Lymph % (Auto) 11.4 L, [place] % (Auto) 9.8, Eos % (Auto) 1.5, Baso % (Auto) 0.7, Absolute Neuts (auto) 6.6, Absolute Lymphs (auto) 0.99, Nucleated RBC % 0.2, Sodium 141, Potassium 4.1, Chloride 102, Carbon Dioxide 23.3, Anion Gap 15, BUN 88 H, C reatinine 2.48 H, Estim Creat Clear Calc 24.21 L, Est GFR (MDRD) Non-Af 20 L, B UN/Creatinine Ratio 35.5 H, Glucose 159 H, Calcium 8.8 02/09/25 09:55: Blood Type A POSITIVE, Antibody Screen NEGATIVE, Crossmatch See Detail 02/09/25 11:41: POC Glucose 155 H Micro: Microbiology 02/08/25 11:15 Sputum, Induced/Lukens Gram Stain - Final ABG Data ABG results: ABG 02/08/25 12:42 Specimen Type ART Sample Site L Radial pH 7.32 L Bicarbonate Actual 27.2 H Total CO2 29 Base Excess 1 O2 Saturation 95 O2 % 90.0 ABG pCO2 53.3 H ABG pO2 86 Harvey Test Positive Respiration Rate 14 O2 Delivery Device Adult Vent Vent Mode AC Tidal Volume 450.0 POC PEEP 5 Rhythm Strip Rhythm Strip: Sinus Rhythm Rate: 104 Cardiology Labs/Tests 02/08/25 12:42: pH 7.32 L, Bicarbonate Actual 27.2 H, Base Excess 1, O2 Saturation 95, ABG pCO2 53.3 H, ABG pO2 86, Harvey Test Positive 02/08/25 12:50: Hgb 6.9 L, Hct 25.0 L 02/09/25 04:24: WBC 8.7, RBC 3.38 L, Hgb 7.1 L, Hct 24.8 L, MCV 73.4 L D, MCH 21.0 L, MCHC 28.6 L, Plt Count 257, MPV 9.8, Immature Gran % (Auto) 0.600, Neut % (Auto) 76.0 H, Lymph % (Auto) 11.4 L, [place] % (Auto) 9.8, Eos % (Auto) 1.5, Baso % (Auto) 0.7, Absolute Neuts (auto) 6.6, Nucleated RBC % 0.2, Sodium 141, Potassium 4.1, Chloride 102, Carbon Dioxide 23.3, Anion Gap 15, BUN 88 H, C reatinine 2.48 H, Est GFR (MDRD) Non-Af 20 L, BUN/Creatinine Ratio 35.5 H, G lucose 159 H, Calcium 8.8 Rhythm: EKG: ECHO: Stress Test: Cardiac Cath: PCI: CT Surgery: Holter monitor: EPS: PPM: CXR: Chest CT Scan: Physical Exam Const General Appearance: intubated and patient mechanically ventilated HEENT normocephalic Eyes PERRL and conjunctivae normal Neck supple and no JVD Resp normal respiratory effort, no retractions and no use of accessory muscles Auscultation: Negative for crackles, rales, rhonchi or wheezes Cardio regular rate, regular rhythm, S1 normal heart sound, S2 normal heart sound and no murmurs GI soft to palpation and non-distended; Negative for hepatosplenomegaly Extremity no clubbing, cyanosis or edema Skin no rashes or lesions noted Neuro Sensorium / Orientation: sedated on vent Psych Appearance: intubated Assessment & Plan Assessment/Plan (1) Acute on chronic combined systolic (congestive) and diastolic (congestive) heart failure: PLAN: * Patient's most recent echo on this admission shows that her ejection fraction has dropped from 35% down to 15%. She does have segmental wall motion abnormalities in the inferior and posterior segments the remainder of the LV is globally dilated. * Will continue with intravenous Lasix at this time and see how she does. * Will resume carvedilol when her blood pressure allows. (2) Secondary pulmonary arterial hypertension: PLAN: Patient's pulmonary pressures estimated 58 mmHg. This is likely secondary to her severe left ventricular systolic dysfunction. PLAN: Plan 1. Try to reinstitute Coreg 3.125-6.25 mg twice daily, when blood pressure is able to tolerate Depending on the recovery of her renal function further recommendations will be made. She appears to have some segmental abnormalities noted but at this time there are no plans to pursue invasive approach to therapy.
--- NOTE | 2025-02-09 16:04 | PN.RENAL_ITS ---
Subjective Subjective urine output is better cr about the same minimal Fio2 and PEEP Objective Data Objective Data Vital Signs: Vital Signs Temp Pulse Resp BP Pulse Ox O2 Del Method O2 Flow Rate 100.4 F H 68 14 119/44 L 92 Mechanical Ventilator 10 02/09/25 16:00 02/09/25 16:00 02/09/25 16:00 02/09/25 16:00 02/09/25 16:00 02/09/25 16:00 02/08/25 08:46 FiO2 30 02/09/25 16:00 Oxygen Flow Rate (L/min) 10 Oxygen Delivery Method Mechanical Ventilator Weight: 113.2 kg Body Mass Index (BMI) 40.8 Intake & Output: Intake and Output for Last 24 Hours 02/07/25 02/08/25 02/09/25 23:59 23:59 23:59 Intake Total 700 / 700 573.04 / 717.24 1044.11 / 1044.11 Output Total 1140 / 1215 1140 / 1140 1430 / 1430 Balance -440 / -515 -566.96 / -422.76 -385.89 / -385.89 Lab / Micro Data 02/09/25 04:24 02/09/25 04:24 Labs: Laboratory Results - last 24 hr 02/08/25 16:27: POC Glucose 97 02/08/25 21:31: POC Glucose 108 H 02/09/25 04:24: WBC 8.7, RBC 3.38 L, Hgb 7.1 L, Hct 24.8 L, MCV 73.4 L D, MCH 21.0 L, MCHC 28.6 L, RDW Std Deviation 43.6, RDW Coeff of Bulmaro 16.6 H, Plt Count 257, MPV 9.8, Immature Gran % (Auto) 0.600, Neut % (Auto) 76.0 H, Lymph % (Auto) 11.4 L, [place] % (Auto) 9.8, Eos % (Auto) 1.5, Baso % (Auto) 0.7, Absolute Neuts (auto) 6.6, Absolute Lymphs (auto) 0.99, Nucleated RBC % 0.2, Sodium 141, Potassium 4.1, Chloride 102, Carbon Dioxide 23.3, Anion Gap 15, BUN 88 H, C reatinine 2.48 H, Estim Creat Clear Calc 24.21 L, Est GFR (MDRD) Non-Af 20 L, B UN/Creatinine Ratio 35.5 H, Glucose 159 H, Calcium 8.8 02/09/25 09:55: Blood Type A POSITIVE, Antibody Screen NEGATIVE, Crossmatch See Detail 02/09/25 11:41: POC Glucose 155 H Micro: Microbiology 02/08/25 11:15 Sputum, Induced/Lukens Gram Stain - Final 02/08/25 00:05 Stool Stool Occult Blood (TREVOR) - Final 02/05/25 12:15 Blood Culture (Wb) - Left Wrist Blood Culture - Preliminary No growth in 48 hours. 02/05/25 12:04 Blood Culture (Wb) - Right Hand Blood Culture - Preliminary No growth in 48 hours. 02/05/25 11:20 Urine Catheter - Catheter Urine Culture - Final Presumptive E. coli 02/05/25 16:50 Nasal Secretion MRSA (PCR) - Final 02/05/25 16:50 Wound - Leg, Left Skin and Soft Tissue MRSA/MSSA (PCR - Final Rhythm Strip Rhythm Strip: Sinus Rhythm Rate: 104 Physical Exam Narrative On ventilator support s1s2 no murmurs Diminished breath sounds abdomen soft Edema bilateral legs morillo + clear yellow urine in bag Assessment & Plan Assessment/Plan (1) ELIDA (acute kidney injury): (2) Chronic kidney disease (CKD): QUALIFIERS: Chronic kidney disease stage: stage 4 (GFR 15-29) Q ualified Code(s): N18.4 - Chronic kidney disease, stage 4 (severe) PLAN: Plan Impression/Plan: Patient is a 74-year-old female with past history of type 2 diabetes mellitus, hypertension, CAD, ischemic cardiomyopathy with HFrEF (EF 15%), pulmonary hypertension, stroke, and hyperlipidemia. Patient presents to the hospital on 02/05/2025 with 1 week history of progressively worsening dyspnea and lower extremity edema. Patient was admitted to the hospital for treatment of acute hypoxic respiratory failure requiring NIV. Nephrology is following for ELIDA on CKD. -Hypervolemia acute kidney injury superimposed on CKD stage IV. Baseline SCr 1.80 to 2.00 mg/dL prior to this admission. Suspect ELIDA is secondary to cardiorenal syndrome. CXR wet urine output picked up continue lasix drip add metolazone dw ICU attending. if urine output drops will add pressor support. currently Bp is ok so off pressors
[2025-02-09 17:26] LABS: Bedside Glucose 93 mg/dL (74-106)
[2025-02-09] MEDS: 0.9% Saline Lock 10 ML Syringe IV (21:05)
[2025-02-09] MEDS: Atorvastatin Calcium 40 MG Tablet PO (22:58)
[2025-02-09 23:18] LABS: Bedside Glucose 196 mg/dL (74-106)
[2025-02-10] VITALS (35 sets, daily range): BP systolic 107–122; BP diastolic 42–59; PULSE 66–78; RESP 14–23; TEMP 36.4–37.2; O2SAT 85–94; BMI 40.4
[2025-02-10] MEDS: dexMEDEtomidine 1,000 MCG in 0.9% Normal Saline (250mL Bag) 240 ML 14.2 MCG CONT INF ×2 (02:42→21:04)
[2025-02-10] MEDS: fentaNYL drip 100 ML 10 MCG CONT INF (02:48)
[2025-02-10 04:52] LABS: Allen Test Positive; Base Excess 7 mmol/L (-2 to +2); Bicarbonate 30.8 mmol/L (22-26); Blood Gas Specimen Type ART; Mode AC; O2 Delivery Device Adult Vent; PEEP 5; PO2 61 mmHG (75-100); RR 14; SITE L Radial; SO2 92 % (95-99); Total Carbon Dioxide 32 mmol/L; pCO2 41.7 mmHg (35-45); pH 7.48 (7.35-7.45)
[2025-02-10 04:56] LABS: Absolute Lymphocyte Count 1.05 X10^3/uL (0.83-4.51); Absolute Neutrophil Count 8.2 X10^3/uL (2.0-7.7); Basophil# 0.09 X10^3/uL; Basophil% 0.8 % (0-1); Eosinophil# 0.12 X10^3/uL; Eosinophils% 1.1 % (0-5); Hematocrit 28.6 % (37-47); Hemoglobin 8.6 g/dL (12.0-15.0); Lymphocyte # 1.05 X10^3/ul (0.83-4.51); Lymphocyte % 9.8 % (19-41); Mean Corp Hgb Conc 30.1 g/dL (32-36); Mean Corpuscular Hgb 21.8 pg (27.0-32.0); Mean Corpuscular Volume 72.6 fL (81-99); Mean Platelet Vol. 9.9 fl (6.2-12.0); Monocyte# 1.16 X10^3/uL; Monocyte% 10.9 % (0-10); NRBC Flagged by Analyzer 0.4 % (0-5); Neutrophil % 76.7 % (47-70); Platelet Count 278 K/mm3 (150-450); RBC Distribution Width CV 16.5 % (11.6-14.6); RBC Distribution Width SD 42.8 fl (35.1-43.9); Red Blood Count 3.94 M/mm3 (4.2-5.4); White Blood Count 10.7 K/mm3 (4.4-11.0)
--- NOTE | 2025-02-10 05:00 | RAD_ITS ---
PROCEDURE: CHEST 1 VIEW (PORTABLE) 02/10/2025 REASON FOR EXAM: RESPIRATORY FAILURE TECHNIQUE: Frontal view of the chest. COMPARISON: 02/08/2025 FINDINGS: Endotracheal tube, nasogastric tube and right IJ line again noted. Bilateral lower zone predominant perihilar opacities and bilateral pleural effusions not significantly changed. Cardiac and mediastinal contours not significantly changed. RAD/Chest 1 View (Portable) IMPRESSION: No significant interval change in appearance of the chest. Reading Location: [id number]
[2025-02-10] MEDS: Heparin Injection (Vial) 5,000 UNIT/ML VIAL 5000 UNIT SC ×3 (05:21→22:00)
[2025-02-10] MEDS: Insulin Lispro 100 UNIT/ML INSULN.PEN SC ×4 (05:27→23:46)
[2025-02-10] MEDS: Furosemide 500 MG in Empty Viaflex 50 mL 1 EACH CONT INF (05:35)
[2025-02-10] MEDS: Vital High Protein 1,000 ML 50 ML GT ×2 (05:37→16:11)
[2025-02-10 05:49] LABS: Bedside Glucose 202 mg/dL (74-106)
[2025-02-10 05:57] LABS: Anion Gap 15 (5-15); BUN 94 mg/dL (4-19); BUN/Creat Ratio 38.5 RATIO (10-20); Calcium,Total 8.6 mg/dL (7.6-11.0); Carbon Dioxide 26.2 mmol/L (21.0-32.0); Chloride 102 mmol/L (98-108); Creatinine, Serum 2.45 mg/dL (0.70-1.20); EST Glomerular Filtration Rate 20 (>60); Estimated Creatinine Clearance 24.12 ml/min (50-250); Glucose 188 mg/dL (70-99); Potassium 3.6 mmol/L (3.3-5.1); Sodium Level 143 mmol/L (133-145)
[2025-02-10] MEDS: Senna/Docusate Sodium 1 Tablet 2 TABLET PO (07:58)
[2025-02-10] MEDS: Isosorbide DN 10 MG Tablet 5 MG PO ×2 (07:58→21:59)
[2025-02-10] MEDS: Aspirin E.C. 81 MG Tablet PO (07:58)
[2025-02-10] MEDS: Carvedilol 6.25 MG Tablet PO ×2 (07:59→16:11)
[2025-02-10] MEDS: Polyethylene Glycol 3350 17 GM PACKET PO (08:00)
[2025-02-10] MEDS: FLUoxetine 10 MG Capsule PO (08:00)
--- NOTE | 2025-02-10 08:08 | PN.CC_ITS ---
Objective Data Objective Data Vital Signs: Vital Signs Last response 3 Temperature 36.4 C L 02/10/25 04:00 Temperature Source Temporal 02/10/25 04:00 Pulse Rate 71 02/10/25 07:02 Pulse Strength Weak (1+) 02/09/25 10:00 Respiratory Rate 14 02/10/25 07:02 Respiratory Effort Mechanically Ventilated 02/10/25 03:58 Respiratory Depth Shallow 02/08/25 07:36 Respiratory Pattern Normal 02/10/25 07:02 Blood Pressure 120/46 L 02/10/25 06:00 Blood Pressure Mean 70 02/10/25 06:00 Blood Pressure Source Monitor 02/10/25 06:00 Blood Pressure Position Supine 02/10/25 06:00 Blood Pressure Location Right Arm 02/10/25 06:00 Pulse Ox 92 02/10/25 07:02 Oxygen Delivery Method Mechanical Ventilator 02/10/25 06:00 Oxygen Flow Rate (L/min) 10 02/08/25 08:46 Fraction of Inspired Oxygen (FIO2) 35 02/10/25 07:02 I&O: I&O Last 24 Hours 3 02/09/25 02/09/25 02/10/25 11:59 23:59 11:59 Intake Total 585.17 / 1722.53 1113.16 / 1722.53 722.84 / 722.84 Output Total 1430 / 3330 1900 / 3330 1150 / 1150 Balance -844.83 / -1607.47 -786.84 / -1607.47 -427.16 / -427.16 I&O: Total Stay 3 02/05/25 09:43 thru 02/10/25 06:13 Intake Total 4092.90 Output Total 7940 Balance -3847.10 Current Meds Ordered / Administered: Current meds ordered / Administered 3 Generic Name Dose Route Start Last Admin Trade Name Freq PRN Reason Stop Dose Admin Acetaminophen 650 mg 02/05/25 13:41 02/07/25 23:29 Acetaminophen 325 Mg Tablet PO 650 mg Q6H PRN PRN Administration Pain 1-10 Or Fever >100.7 Aspirin 81 mg 02/06/25 08:00 02/10/25 07:58 Aspirin E.C. 81 Mg Tablet PO 81 mg BREAKFAST PARMINDER Administration Atorvastatin Calcium 40 mg 02/05/25 22:00 02/09/25 22:58 Atorvastatin Calcium 40 Mg Tablet PO 40 mg QHS PARMINDER Administration Carvedilol 6.25 mg 02/05/25 19:30 02/10/25 07:59 Carvedilol 6.25 Mg Tablet PO 6.25 mg BIDCM PARMINDER Administration Protocol Fluoxetine HCl 10 mg 02/06/25 10:00 02/10/25 08:00 Fluoxetine 10 Mg Capsule PO 10 mg DAILY PARMINDER Administration Heparin Sodium (Porcine) 5,000 unit 02/08/25 14:00 02/10/25 05:21 Heparin Injection (Vial) 5,000 Unit/Ml Vial SC 5,000 unit Q8 PARMINDER Administration Hydralazine HCl 10 mg 02/06/25 08:30 02/10/25 05:37 Hydralazine 10 Mg Tablet PO Not Given TID PARMINDER Protocol Furosemide 500 mg/ N/A 50 mls @ 2 mls/hr 02/05/25 13:45 02/10/25 05:35 CONT INF 20 mg/hr .Q25H PARMINDER 2 mls/hr Administration 20 MG/HR Ceftriaxone Sodium 1 gm in 50 mls @ 100 mls/hr 02/05/25 16:00 02/09/25 11:53 Rocephin IV 02/10/25 23:59 Infused Q24 PARMINDER Infusion Sodium Chloride 250 mls @ 15 mls/hr 02/05/25 16:53 02/06/25 00:16 IV 0 mls/hr .[id number] PRN Infusion Saline Flush Sodium Chloride 250 mls @ 15 mls/hr 02/05/25 16:53 IV .[id number] PRN Additional IVPB Infusion Fentanyl 100 mls @ 2.5 mls/hr 02/08/25 10:50 02/10/25 06:08 CONT INF 100 mcg/hr UD PARMINDER 10 mls/hr Titration Protocol 25 MCG/HR Norepinephrine Bitartrate 8 mg 250 mls @ 9.375 mls/hr 02/08/25 11:30 02/09/25 13:08 / Sodium Chloride CONT INF Not Given .[id number] PARMINDER Protocol 5 MCG/MIN Pantoprazole Sodium 40 mg/ 110 mls @ 330 mls/hr 02/08/25 12:30 02/09/25 11:01 Sodium Chloride IV Infused Q24 PARMINDER Infusion Enteral Nutritional Formula 1,000 mls @ 50 mls/hr 02/09/25 09:30 02/10/25 05:37 Vital High Protein GT 50 mls/hr .Q20H PARMINDER Administration Dexmedetomidine HCl 1,000 mcg/ 250 mls @ 14.238 mls/hr 02/10/25 01:30 02/10/25 06:13 Sodium Chloride CONT INF 0.5 mcg/kg/hr .[id number] PARMINDER 14.2 mls/hr Titration Protocol 0.5 MCG/KG/HR Insulin Human Lispro 15 unit 02/05/25 18:30 02/10/25 07:57 Insulin Lispro 100 Unit/Ml Insuln.Pen SC Not Given ACHS PARMINDER Insulin Human Lispro 0 unit 02/07/25 16:00 02/10/25 05:27 Insulin Lispro 100 Unit/Ml Insuln.Pen SC 2 u ACHS PARMINDER Administration Protocol Isosorbide Dinitrate 5 mg 02/06/25 10:00 02/10/25 07:58 Isosorbide Dn 10 Mg Tablet PO 5 mg BID PARMINDER Administration Protocol Polyethylene Glycol 17 gm 02/07/25 10:00 02/10/25 08:00 Polyethylene Glycol 3350 17 Gm Packet PO 17 gm DAILY PARMINDER Administration Senna/Docusate Sodium 2 tablet 02/07/25 10:00 02/10/25 07:58 Senna/Docusate Sodium 1 Tablet PO 2 tablet BID PARMINDER Administration Sodium Chloride 10 - 40 ml 02/05/25 16:13 02/09/25 21:05 0.9% Saline Lock 10 Ml Syringe IV 20 ml UD PRN Administration SALINE FLUSH Lab / Micro Data 02/10/25 04:34 02/10/25 04:34 Labs: Laboratory Results - last 24 hr 02/09/25 09:55: Blood Type A POSITIVE, Antibody Screen NEGATIVE, Crossmatch See Detail 02/09/25 11:41: POC Glucose 155 H 02/09/25 17:09: POC Glucose 93 02/09/25 22:51: POC Glucose 196 H 02/10/25 04:34: WBC 10.7, RBC 3.94 L, Hgb 8.6 L, Hct 28.6 L, MCV 72.6 L, MCH 21.8 L, MCHC 30.1 L D, RDW Std Deviation 42.8, RDW Coeff of Bulmaro 16.5 H, Plt Count 278, MPV 9.9, Immature Gran % (Auto) 0.700, Neut % (Auto) 76.7 H, Lymph % (Auto) 9.8 L, Vance % (Auto) 10.9 H, Eos % (Auto) 1.1, Baso % (Auto) 0.8, A bsolute Neuts (auto) 8.2 H, Absolute Lymphs (auto) 1.05, Nucleated RBC % 0.4, Sodium 143, Potassium 3.6, Chloride 102, Carbon Dioxide 26.2, Anion Gap 15, BUN 94 H, Creatinine 2.45 H, Estim Creat Clear Calc 24.12 L, Est GFR (MDRD) Non-Af 20 L, BUN/Creatinine Ratio 38.5 H, Glucose 188 H, Calcium 8.6 02/10/25 05:26: POC Glucose 202 H ABG Data ABG results: ABG 02/10/25 04:48 Specimen Type ART Sample Site L Radial pH 7.48 H Bicarbonate Actual 30.8 H Total CO2 32 Base Excess 7 H O2 Saturation 92 L O2 % 30.0 ABG pCO2 41.7 ABG pO2 61 L Harvey Test Positive Respiration Rate 14 O2 Delivery Device Adult Vent Vent Mode AC Tidal Volume 450.0 POC PEEP 5 Rhythm Strip Rhythm Strip: Sinus Rhythm Rate: 104 Imaging Radiology Impression Chest X-Ray 02/10/25 05:00 IMPRESSION: No significant interval change in appearance of the chest. Reading Location: [facility] Assessment and Plan . Assessment and plan: Subjective: No acute events o/n. Physical Exam: Gen - NAD, obese, intubated HEENT - MMM. ETT in place Resp - Diminished BS. Mechanically ventilated CV - RRR. No m/g/r Abd - Soft, NT, ND Ext - No c/c. +edema Skin - No rashes? Neuro - Sedated, intubated I have reviewed the pertinent vital sign, laboratory, and imaging data. ASSESSMENT: # Acute hypoxic and hypercapneic respiratory failure ? intubated 02/08 # CHF exacerbation ? EF 15% # Sepsis # Presumptive E coli UTI # ELIDA on CKD # h/o CVA # DM # Anemia # Depression/anxiety # Morbid obesity PLAN: -Cont VC vent 450/14/5/30%. Follow ABG/CXR -Can attempt PS trial though likely not ready for extubation yet, would benefit from further fluid removal -Cont IV lasix gtt, PRN metolazone as per nephrology and cardiology -Cont rocephin -Monitor Cr, UOP -Follow CBC FEN/GI: TF Proph DVT/GI: SQ heparin, protonix Critical Care Time: 50 mins The entirety of this encounter was done via telemedicine using both audio and video. Consent was unable to be obtained for the telemedicine encounter due to the patient's mental status.
[2025-02-10] MEDS: Pantoprazole Sodium 40 MG in 0.9% Normal Saline (100mL MB+) 100 ML 330 MG IV (09:03)
--- NOTE | 2025-02-10 09:11 | PCM.PN.HOSP ---
Subjective Subjective Intubated and sedated, she received a unit of blood yesterday with improvement in her hemoglobin from 7.1 to 8.6 Objective Data Objective Data Vital Signs: Vital Signs Temp Pulse Resp BP Pulse Ox O2 Del Method O2 Flow Rate 98.9 F 73 14 115/45 L 93 Mechanical Ventilator 10 02/10/25 07:00 02/10/25 08:59 02/10/25 08:59 02/10/25 08:00 02/10/25 08:59 02/10/25 08:00 02/08/25 08:46 FiO2 35 02/10/25 08:59 Oxygen Flow Rate (L/min) 10 Oxygen Delivery Method Mechanical Ventilator Weight: 242 lb 8.136 oz Body Mass Index (BMI) 40.4 Intake & Output: Intake and Output for Last 24 Hours 02/09/25 02/10/25 02/11/25 03:59 03:59 03:59 Intake Total 789.84 / 814.04 1896.53 / 1920.73 496.83 / 496.83 Output Total 1340 / 1340 3280 / 3280 900 / 900 Balance -550.16 / -525.96 -1383.47 / -1359.27 -403.17 / -403.17 Lab / Micro Data 02/10/25 04:34 02/10/25 04:34 Labs: Laboratory Results - last 24 hr 02/09/25 09:55: Blood Type A POSITIVE, Antibody Screen NEGATIVE, Crossmatch See Detail 02/09/25 11:41: POC Glucose 155 H 02/09/25 17:09: POC Glucose 93 02/09/25 22:51: POC Glucose 196 H 02/10/25 04:34: WBC 10.7, RBC 3.94 L, Hgb 8.6 L, Hct 28.6 L, MCV 72.6 L, MCH 21.8 L, MCHC 30.1 L D, RDW Std Deviation 42.8, RDW Coeff of Bulmaro 16.5 H, Plt Count 278, MPV 9.9, Immature Gran % (Auto) 0.700, Neut % (Auto) 76.7 H, Lymph % (Auto) 9.8 L, Webb % (Auto) 10.9 H, Eos % (Auto) 1.1, Baso % (Auto) 0.8, Absolute Neuts (auto) 8.2 H, Absolute Lymphs (auto) 1.05, Nucleated RBC % 0.4, Sodium 143, Potassium 3.6, Chloride 102, Carbon Dioxide 26.2, Anion Gap 15, BUN 94 H, Creatinine 2.45 H, Estim Creat Clear Calc 24.12 L, Est GFR (MDRD) Non-Af 20 L, BUN/Creatinine Ratio 38.5 H, Glucose 188 H, Calcium 8.6 02/10/25 05:26: POC Glucose 202 H Micro: Microbiology 02/08/25 11:15 Sputum, Induced/Lukens Gram Stain - Final 02/08/25 00:05 Stool Stool Occult Blood (TREVOR) - Final 02/05/25 12:15 Blood Culture (Wb) - Left Wrist Blood Culture - Preliminary No growth in 48 hours. 02/05/25 12:04 Blood Culture (Wb) - Right Hand Blood Culture - Preliminary No growth in 48 hours. 02/05/25 11:20 Urine Catheter - Catheter Urine Culture - Final Presumptive E. coli 02/05/25 16:50 Nasal Secretion MRSA (PCR) - Final 02/05/25 16:50 Wound - Leg, Left Skin and Soft Tissue MRSA/MSSA (PCR - Final ABG Data ABG results: ABG 02/10/25 04:48 Specimen Type ART Sample Site L Radial pH 7.48 H Bicarbonate Actual 30.8 H Total CO2 32 Base Excess 7 H O2 Saturation 92 L O2 % 30.0 ABG pCO2 41.7 ABG pO2 61 L Harvey Test Positive Respiration Rate 14 O2 Delivery Device Adult Vent Vent Mode AC Tidal Volume 450.0 POC PEEP 5 Radiography Diagnostic Testing: Radiology Impression Chest X-Ray 02/10/25 05:00 IMPRESSION: No significant interval change in appearance of the chest. Reading Location: [facility] Rhythm Strip Rhythm Strip: Sinus Rhythm Rate: 104 Physical Exam Const General Appearance: intubated and patient mechanically ventilated HEENT normocephalic Eyes PERRL and conjunctivae normal Neck supple and no JVD Resp normal respiratory effort, no retractions and no use of accessory muscles Auscultation: Negative for crackles, rales, rhonchi or wheezes Cardio regular rate, regular rhythm, S1 normal heart sound, S2 normal heart sound and no murmurs GI soft to palpation and non-distended; Negative for hepatosplenomegaly Extremity no clubbing, cyanosis or edema Skin no rashes or lesions noted Neuro Sensorium / Orientation: sedated on vent Psych Appearance: intubated Assessment & Plan Assessment/Plan (1) Acute on chronic combined systolic (congestive) and diastolic (congestive) heart failure: (2) Cellulitis of right anterior lower leg: PLAN: Plan 1. Acute on chronic combined respiratory failure due to heart failure exacerbation: The patient is being admitted in ICU on BiPAP. ABG stat ordered. Discussed with the ED physician to watch for half an hour if she does not improve will need intubation prior to transfer to ICU. Currently on 6 L of oxygen. Lactic acidosis most likely due to pulmonary edema/hypoxia. Patient does not have signs and symptoms of sepsis. The patient not on home oxygen or NIPPV at home 02/06: ABG 7.21/50.7/133 at BiPAP 60% FiO2. Bicarb 22.Bicarb in BMP was 15.7 on 02/05. Probably bicarb and BMP are normal. Today's bicarb is 20. Continue BiPAP intermittently 02/07: The patient has been off BiPAP last night. On 4 to 5 L of oxygen. Gradually improving. 02/08: Patient also neutrophile flow oxygen, looks dyspneic at rest. ABG ordered. 02/09/2025: She was intubated yesterday currently FiO2 of 40% on the ventilator. Continue with Lasix drip 02/10/2025: Slow improvement on her FiO2 down to 45% today. Continue with the Lasix drip 2. Acute on chronic combined heart failure: BNP about 30,000. Chest x-ray initially reviewed and shows pulmonary edema, cardiomegaly and blunting of both CP angles. Twelve-lead EKG sinus tachycardia, 104 bpm, QRS 168, QTc 531 ms. LBBB. 02/06: Total urine output 455 mL, 325 since last night. Discussed with the auto body repair teacher. Continue the same regimen 02/07: Urine output is low. On furosemide 20 mg/h. 1 dose of metolazone. Urine output 1050 mL documented yesterday. 300 mL since midnight. Lodging Manager consult reviewed and appreciated 02/08: Even on 20 mg Lasix per hour infusion, patient not putting good urine total 600 mL. Neurologist input needed. 02/09/2025: Continue with Lasix drip, currently intubated 3. Elevated troponin probably due to increased cardiac demand with suspicion of possible non-STEMI: Patient complained of nondescriptive chest pain. Lesion discussed with auto body repair teacher Dr. Cardona. Recommended enoxaparin 1 dose. Troponin 218, 241. Third troponin pending. EKG as described above. Patient has CAD status post stents, on aspirin and statin. Hold carvedilol because of CHF exacerbation/fluid overload and resume once euvolemic. 4. ELIDA on CKD stage IV: Patient baseline creatinine runs around 2.0 as in January 2025. Admitting BUN/creatinine 58/2.32 therefore ELIDA on CKD stage IV. Lodging Manager consulted. Patient has hyperkalemia, 5.5, high anion gap metabolic acidosis, AG 19, bicarb 15. ABG ordered as mentioned above. Kayexalate and hyperkalemia cocktail ordered. Repeat BMP after 4 hours. Hold losartan metolazone. 02/06: BUN/creatinine 70/2.45. Continue furosemide drip. Lodging Manager on board. 02/07: Today's BMP is pending. 02/08: BUN/creatinine 86/2.6. BMP yesterday was 3.5. 02/09/2025: Appreciate nephrology's assistance, renal function appears to be stable with creatinine 2.48 5. Chronic severe anemia: H&H 8.0/27.9%. MCV 75 RDW elevated 17.0. Possible chronic iron deficiency anemia. Monitor CBC. Iron workup ordered for tomorrow a.m.. 02/07: Hemoglobin dropped to 7.2%. It is microcytic with elevated RDW. Stool for occult blood ordered. H&H ordered for in the evening. Patient only on baby aspirin. 02/08: H&H 7.7/28%. Stool for occult blood negative. B12 was normal 635 07/2024. TSH normal. Cortisol 11.2 normal in July 2024. Anemia workup ordered. Reticulocyte panel and LDH ordered 02/09/2025: Iron is 16 with a normal TIBC and iron saturation of 5% with normal ferritin, she likely has a combination of anemia of chronic disease with iron deficiency. She has been transfused today, can likely give IV iron tomorrow 02/10/2025: Hemoglobin today is 8.6, will recheck tomorrow if necessary can give some IV iron 6. DM type II: Last A1c 5.2% in July 2024. Accu-Chek before meals and at bedtime with Humalog sliding scale coverage and hypoglycemia protocol. Most recent glucoses elevated, 259 BMP 5/51.135. 7. Chronic bilateral fifth metatarsal excision: Superficial ulcer of left lateral leg and contiguous cellulitis: MRSA wound and nasal screen ordered. IV cefazolin given in ED. IV ceftriaxone ordered 02/09/2025: Continue with antibiotics 8. Past history of CVA: History of remote left lacunar infarct. On aspirin and statin, continued 9. Depression and anxiety: On Flexotard continue DVT: SCDs Charges/Coding Visit Charges Inpatient E&M: 18914 Subs Hosp L2
--- NOTE | 2025-02-10 09:21 | PN.CARD_ITS ---
Subjective Subjective Patient seen and evaluated. Opening her eyes minimally to commands Objective Data Vital Signs: Vital Signs Temp Pulse Resp BP Pulse Ox O2 Del Method O2 Flow Rate 98.9 F 73 14 115/45 L 93 Mechanical Ventilator 10 02/10/25 07:00 02/10/25 08:59 02/10/25 08:59 02/10/25 08:00 02/10/25 08:59 02/10/25 08:00 02/08/25 08:46 FiO2 35 02/10/25 08:59 Oxygen Flow Rate (L/min) 10 Oxygen Delivery Method Mechanical Ventilator Weight: 242 lb 8.136 oz Body Mass Index (BMI) 40.4 Intake & Output: Intake and Output for Last 24 Hours 02/08/25 02/09/25 02/10/25 23:59 23:59 23:59 Intake Total 573.04 / 717.24 1698.33 / 1722.53 911.83 / 911.83 Output Total 1140 / 1140 3330 / 3330 1150 / 1150 Balance -566.96 / -422.76 -1631.67 / -1607.47 -238.17 / -238.17 Lab / Micro Data 02/10/25 04:34 02/10/25 04:34 Labs: Laboratory Results - last 24 hr 02/09/25 09:55: Blood Type A POSITIVE, Antibody Screen NEGATIVE, Crossmatch See Detail 02/09/25 11:41: POC Glucose 155 H 02/09/25 17:09: POC Glucose 93 02/09/25 22:51: POC Glucose 196 H 02/10/25 04:34: WBC 10.7, RBC 3.94 L, Hgb 8.6 L, Hct 28.6 L, MCV 72.6 L, MCH 21.8 L, MCHC 30.1 L D, RDW Std Deviation 42.8, RDW Coeff of Bulmaro 16.5 H, Plt Count 278, MPV 9.9, Immature Gran % (Auto) 0.700, Neut % (Auto) 76.7 H, Lymph % (Auto) 9.8 L, [place] % (Auto) 10.9 H, Eos % (Auto) 1.1, Baso % (Auto) 0.8, A bsolute Neuts (auto) 8.2 H, Absolute Lymphs (auto) 1.05, Nucleated RBC % 0.4, Sodium 143, Potassium 3.6, Chloride 102, Carbon Dioxide 26.2, Anion Gap 15, BUN 94 H, Creatinine 2.45 H, Estim Creat Clear Calc 24.12 L, Est GFR (MDRD) Non-Af 20 L, BUN/Creatinine Ratio 38.5 H, Glucose 188 H, Calcium 8.6 02/10/25 05:26: POC Glucose 202 H ABG Data ABG results: ABG 02/10/25 04:48 Specimen Type ART Sample Site L Radial pH 7.48 H Bicarbonate Actual 30.8 H Total CO2 32 Base Excess 7 H O2 Saturation 92 L O2 % 30.0 ABG pCO2 41.7 ABG pO2 61 L Harvey Test Positive Respiration Rate 14 O2 Delivery Device Adult Vent Vent Mode AC Tidal Volume 450.0 POC PEEP 5 Rhythm Strip Rhythm Strip: Sinus Rhythm Rate: 104 Cardiology Labs/Tests 02/10/25 04:34: WBC 10.7, RBC 3.94 L, Hgb 8.6 L, Hct 28.6 L, MCV 72.6 L, MCH 21.8 L, MCHC 30.1 L D, Plt Count 278, MPV 9.9, Immature Gran % (Auto) 0.700, N eut % (Auto) 76.7 H, Lymph % (Auto) 9.8 L, [place] % (Auto) 10.9 H, Eos % (Auto) 1.1, Baso % (Auto) 0.8, Absolute Neuts (auto) 8.2 H, Nucleated RBC % 0.4, Sodium 143, Potassium 3.6, Chloride 102, Carbon Dioxide 26.2, Anion Gap 15, BUN 94 H, C reatinine 2.45 H, Est GFR (MDRD) Non-Af 20 L, BUN/Creatinine Ratio 38.5 H, G lucose 188 H, Calcium 8.6 02/10/25 04:48: pH 7.48 H, Bicarbonate Actual 30.8 H, Base Excess 7 H, O2 Saturation 92 L, ABG pCO2 41.7, ABG pO2 61 L, Harvey Test Positive Rhythm: EKG: ECHO: Stress Test: Cardiac Cath: PCI: CT Surgery: Holter monitor: EPS: PPM: CXR: Chest CT Scan: Radiography Diagnostic Testing: Radiology Impression Chest X-Ray 02/10/25 05:00 IMPRESSION: No significant interval change in appearance of the chest. Reading Location: [facility] Physical Exam Const General Appearance: intubated and patient mechanically ventilated HEENT normocephalic Eyes PERRL and conjunctivae normal Neck supple and no JVD Resp normal respiratory effort, no retractions and no use of accessory muscles Auscultation: Negative for crackles, rales, rhonchi or wheezes Cardio regular rate, regular rhythm, S1 normal heart sound, S2 normal heart sound and no murmurs GI soft to palpation and non-distended; Negative for hepatosplenomegaly Extremity no clubbing, cyanosis or edema Skin no rashes or lesions noted Neuro Sensorium / Orientation: sedated on vent Psych Appearance: intubated Assessment & Plan Assessment/Plan (1) Acute on chronic combined systolic (congestive) and diastolic (congestive) heart failure: PLAN: * Patient's most recent echo on this admission shows that her ejection fraction has dropped from 35% down to 15%. She does have segmental wall motion abnormalities in the inferior and posterior segments the remainder of the LV is globally dilated. * Will continue with intravenous Lasix at this time and see how she does. * Will resume carvedilol when her blood pressure allows. * Overall status quo ante (2) Secondary pulmonary arterial hypertension: PLAN: Patient's pulmonary pressures estimated 58 mmHg. This is likely secondary to her severe left ventricular systolic dysfunction. PLAN: Plan 1. Try to reinstitute Coreg 3.125-6.25 mg twice daily, when blood pressure is able to tolerate Depending on the recovery of her renal function further recommendations will be made. She appears to have some segmental abnormalities noted but at this time there are no plans to pursue invasive approach to therapy.
[2025-02-10] MEDS: Chlorhexidine 15 ML PO ×2 (09:38→22:41)
[2025-02-10] MEDS: Ceftriaxone 1 GM/50 ML BAG IV (09:38)
[2025-02-10] MEDS: Albuterol 2.5 MG/3 ML VIAL.NEB. INHALATION ×2 (11:51→19:06)
[2025-02-10] MEDS: Acetylcysteine 800 MG/4 ML VIAL.NEB. INHALATION ×2 (11:52→19:06)
[2025-02-10 12:46] LABS: Bedside Glucose 296 mg/dL (74-106)
[2025-02-10] MEDS: guaiFENesin 10 ML UDC (200MG/10ML) NG ×2 (14:27→22:00)
[2025-02-10] MEDS: hydrALAZINE 10 MG Tablet PO ×2 (14:28→21:58)
[2025-02-10] MEDS: metOLazone 5 MG Tablet PO (16:20)
[2025-02-10] MEDS: Atorvastatin Calcium 40 MG Tablet PO (21:58)
[2025-02-11] VITALS (35 sets, daily range): BP systolic 110–124; BP diastolic 43–55; PULSE 68–73; RESP 14–94; TEMP 36.1–37.2; O2SAT 88–95; BMI 39.4
[2025-02-11 00:05] LABS: Bedside Glucose 300 mg/dL (74-106)
[2025-02-11 00:05] LABS: Bedside Glucose 327 mg/dL (74-106)
[2025-02-11] MEDS: Acetylcysteine 800 MG/4 ML VIAL.NEB. INHALATION ×3 (02:20→19:44)
[2025-02-11] MEDS: Albuterol 2.5 MG/3 ML VIAL.NEB. INHALATION ×3 (02:21→19:44)
[2025-02-11 04:38] LABS: Absolute Lymphocyte Count 0.92 X10^3/uL (0.83-4.51); Absolute Neutrophil Count 9.5 X10^3/uL (2.0-7.7); Basophil# 0.06 X10^3/uL; Basophil% 0.5 % (0-1); Eosinophils% 0.9 % (0-5); Hematocrit 28.1 % (37-47); Hemoglobin 8.4 g/dL (12.0-15.0); Lymphocyte # 0.92 X10^3/ul (0.83-4.51); Lymphocyte % 7.9 % (19-41); Mean Corp Hgb Conc 29.9 g/dL (32-36); Mean Corpuscular Hgb 21.5 pg (27.0-32.0); Mean Corpuscular Volume 71.9 fL (81-99); Monocyte# 1.05 X10^3/uL; NRBC Flagged by Analyzer 0 % (0-5); Neutrophil # 9.48 X10^3/uL (2.7-7.7); Platelet Count 261 K/mm3 (150-450); RBC Distribution Width CV 16.8 % (11.6-14.6); RBC Distribution Width SD 43.4 fl (35.1-43.9); Red Blood Count 3.91 M/mm3 (4.2-5.4); White Blood Count 11.7 K/mm3 (4.4-11.0)
[2025-02-11] MEDS: Furosemide 500 MG in Empty Viaflex 50 mL 1 EACH CONT INF (05:57)
[2025-02-11] MEDS: Heparin Injection (Vial) 5,000 UNIT/ML VIAL 5000 UNIT SC ×3 (05:58→21:02)
[2025-02-11] MEDS: Insulin Lispro 100 UNIT/ML INSULN.PEN SC ×4 (06:02→21:02)
[2025-02-11 06:04] LABS: Anion Gap 15 (5-15); BUN 102 mg/dL (4-19); Calcium,Total 8.5 mg/dL (7.6-11.0); Carbon Dioxide 28.8 mmol/L (21.0-32.0); Chloride 96 mmol/L (98-108); Creatinine, Serum 2.37 mg/dL (0.70-1.20); EST Glomerular Filtration Rate 21 (>60); Estimated Creatinine Clearance 24.93 ml/min (50-250); Glucose 422 mg/dL (70-99); Potassium 3.2 mmol/L (3.3-5.1); Sodium Level 140 mmol/L (133-145)
[2025-02-11] MEDS: hydrALAZINE 10 MG Tablet PO ×3 (06:04→21:00)
[2025-02-11 06:32] LABS: Bedside Glucose 391 mg/dL (74-106)
[2025-02-11] MEDS: Carvedilol 6.25 MG Tablet PO ×2 (08:06→17:04)
[2025-02-11] MEDS: Aspirin E.C. 81 MG Tablet PO (08:07)
[2025-02-11] MEDS: Chlorhexidine 15 ML PO ×2 (08:07→21:01)
[2025-02-11] MEDS: Potassium Chloride 10mEq/100mL 10 MEQ/100 ML IV.SOLN. 100 MEQ IV BOLUS ×4 (08:16→12:16)
[2025-02-11] MEDS: 0.9% Normal Saline (250mL Bag) 250 ML 15 ML IV (08:17)
--- NOTE | 2025-02-11 08:59 | PN.HOSP_ITS ---
Subjective Subjective Remains intubated and sedated Objective Data Objective Data Vital Signs: Vital Signs Temp Pulse Resp BP Pulse Ox O2 Del Method O2 Flow Rate 97.5 F L 73 14 114/49 L 95 Mechanical Ventilator 35 02/11/25 08:00 02/11/25 08:00 02/11/25 08:00 02/11/25 08:00 02/11/25 08:00 02/11/25 08:00 02/10/25 21:00 FiO2 35 02/11/25 08:00 Oxygen Flow Rate (L/min) 35 Oxygen Delivery Method Mechanical Ventilator Weight: 236 lb 12.423 oz Body Mass Index (BMI) 39.4 Intake & Output: Intake and Output for Last 24 Hours 02/10/25 02/11/25 02/12/25 03:59 03:59 03:59 Intake Total 1896.53 / 1920.73 1796.65 / 1890.85 235.35 / 235.35 Output Total 3280 / 3280 3750 / 3750 1100 / 1100 Balance -1383.47 / -1359.27 -1953.35 / -1859.15 -864.65 / -864.65 Lab / Micro Data 02/11/25 04:25 02/11/25 04:25 Labs: Laboratory Results - last 24 hr 02/10/25 12:27: POC Glucose 296 H 02/10/25 18:05: POC Glucose 300 H 02/10/25 23:43: POC Glucose 327 H 02/11/25 04:25: WBC 11.7 H, RBC 3.91 L, Hgb 8.4 L, Hct 28.1 L, MCV 71.9 L, MCH 21.5 L, MCHC 29.9 L, RDW Std Deviation 43.4, RDW Coeff of Bulmaro 16.8 H, Plt Count 261, MPV 10.0, Immature Gran % (Auto) 0.700, Neut % (Auto) 81.0 H, Lymph % (Auto) 7.9 L, Whitley % (Auto) 9.0, Eos % (Auto) 0.9, Baso % (Auto) 0.5, Absolute Neuts (auto) 9.5 H, Absolute Lymphs (auto) 0.92, Nucleated RBC % 0, Sodium 140, Potassium 3.2 L, Chloride 96 L, Carbon Dioxide 28.8, Anion Gap 15, BUN 102 H*, C reatinine 2.37 H, Estim Creat Clear Calc 24.93 L, Est GFR (MDRD) Non-Af 21 L, B UN/Creatinine Ratio 43.0 H, Glucose 422 H, Calcium 8.5 02/11/25 06:01: POC Glucose 391 H Micro: Microbiology 02/05/25 12:15 Blood Culture (Wb) - Left Wrist Blood Culture - Final No growth in 5 days. 02/05/25 12:04 Blood Culture (Wb) - Right Hand Blood Culture - Final No growth in 5 days. 02/08/25 11:15 Sputum, Induced/Lukens Gram Stain - Final 02/08/25 11:15 Sputum, Induced/Lukens Respiratory Culture - Final Mixed normal respiratory dave. No Streptococcus pneumoniae, beta-hemolytic Streptococcus or Staphylococcus aureus isolated. 02/08/25 00:05 Stool Stool Occult Blood (TREVOR) - Final 02/05/25 11:20 Urine Catheter - Catheter Urine Culture - Final Presumptive E. coli 02/05/25 16:50 Nasal Secretion MRSA (PCR) - Final 02/05/25 16:50 Wound - Leg, Left Skin and Soft Tissue MRSA/MSSA (PCR - Final Rhythm Strip Rhythm Strip: Sinus Rhythm Rate: 104 Physical Exam Const General Appearance: intubated and patient mechanically ventilated HEENT normocephalic Eyes PERRL and conjunctivae normal Neck supple and no JVD Resp normal respiratory effort, no retractions and no use of accessory muscles Auscultation: Negative for crackles, rales, rhonchi or wheezes Cardio regular rate, regular rhythm, S1 normal heart sound, S2 normal heart sound and no murmurs GI soft to palpation and non-distended; Negative for hepatosplenomegaly Extremity no clubbing, cyanosis or edema Skin no rashes or lesions noted Neuro Sensorium / Orientation: sedated on vent Psych Appearance: intubated Assessment & Plan Assessment/Plan (1) Acute on chronic combined systolic (congestive) and diastolic (congestive) heart failure: (2) Cellulitis of right anterior lower leg: PLAN: Plan 1. Acute on chronic combined respiratory failure due to heart failure exacerbation: The patient is being admitted in ICU on BiPAP. ABG stat ordered. Discussed with the ED physician to watch for half an hour if she does not improve will need intubation prior to transfer to ICU. Currently on 6 L of oxygen. Lactic acidosis most likely due to pulmonary edema/hypoxia. Patient does not have signs and symptoms of sepsis. The patient not on home oxygen or NIPPV at home 02/06: ABG 7.21/50.7/133 at BiPAP 60% FiO2. Bicarb 22.Bicarb in BMP was 15.7 on 02/05. Probably bicarb and BMP are normal. Today's bicarb is 20. Continue BiPAP intermittently 02/07: The patient has been off BiPAP last night. On 4 to 5 L of oxygen. Gradually improving. 02/08: Patient also neutrophile flow oxygen, looks dyspneic at rest. ABG ordered. 02/09/2025: She was intubated yesterday currently FiO2 of 40% on the ventilator. Continue with Lasix drip 02/10/2025: Slow improvement on her FiO2 down to 45% today. Continue with the Lasix drip 02/11/2025: FiO2 down to 35% anticipate spontaneous breathing trial today by telemetry ICU 2. Acute on chronic combined heart failure: BNP about 30,000. Chest x-ray initially reviewed and shows pulmonary edema, cardiomegaly and blunting of both CP angles. Twelve-lead EKG sinus tachycardia, 104 bpm, QRS 168, QTc 531 ms. LBBB. 02/06: Total urine output 455 mL, 325 since last night. Discussed with the board catcher. Continue the same regimen 02/07: Urine output is low. On furosemide 20 mg/h. 1 dose of metolazone. Urine output 1050 mL documented yesterday. 300 mL since midnight. Preschool Education Director consult reviewed and appreciated 02/08: Even on 20 mg Lasix per hour infusion, patient not putting good urine total 600 mL. Neurologist input needed. 02/09/2025: Continue with Lasix drip, currently intubated 3. Elevated troponin probably due to increased cardiac demand with suspicion of possible non-STEMI: Patient complained of nondescriptive chest pain. Lesion discussed with board catcher Dr. Cardona. Recommended enoxaparin 1 dose. Troponin 218, 241. Third troponin pending. EKG as described above. Patient has CAD status post stents, on aspirin and statin. Hold carvedilol because of CHF exacerbation/fluid overload and resume once euvolemic. 4. ELIDA on CKD stage IV: Patient baseline creatinine runs around 2.0 as in January 2025. Admitting BUN/creatinine 58/2.32 therefore ELIDA on CKD stage IV. Preschool Education Director consulted. Patient has hyperkalemia, 5.5, high anion gap metabolic acidosis, AG 19, bicarb 15. ABG ordered as mentioned above. Kayexalate and hyperkalemia cocktail ordered. Repeat BMP after 4 hours. Hold losartan metolazone. 02/06: BUN/creatinine 70/2.45. Continue furosemide drip. Preschool Education Director on board. 02/07: Today's BMP is pending. 02/08: BUN/creatinine 86/2.6. BMP yesterday was 3.5. 02/09/2025: Appreciate nephrology's assistance, renal function appears to be stable with creatinine 2.48 5 , continues to have slow improvement in her creatinine down to 2.37 today, BUN is up to 102 5. Chronic severe anemia: H&H 8.0/27.9%. MCV 75 RDW elevated 17.0. Possible chronic iron deficiency anemia. Monitor CBC. Iron workup ordered for tomorrow a.m.. 02/07: Hemoglobin dropped to 7.2%. It is microcytic with elevated RDW. Stool for occult blood ordered. H&H ordered for in the evening. Patient only on baby aspirin. 02/08: H&H 7.7/28%. Stool for occult blood negative. B12 was normal 635 07/2024. TSH normal. Cortisol 11.2 normal in July 2024. Anemia workup ordered. Reticulocyte panel and LDH ordered 02/09/2025: Iron is 16 with a normal TIBC and iron saturation of 5% with normal ferritin, she likely has a combination of anemia of chronic disease with iron deficiency. She has been transfused today, can likely give IV iron tomorrow 02/10/2025: Hemoglobin today is 8.6, will recheck tomorrow if necessary can give some IV iron 02/11/2025: Continue with a dose of Venofer today 6. DM type II: Last A1c 5.2% in July 2024. Accu-Chek before meals and at bedtime with Humalog sliding scale coverage and hypoglycemia protocol. Most recent glucoses elevated, 259 BMP .135. 7. Chronic bilateral fifth metatarsal excision: Superficial ulcer of left lateral leg and contiguous cellulitis: MRSA wound and nasal screen ordered. IV cefazolin given in ED. IV ceftriaxone ordered 02/09/2025: Continue with antibiotics 02/11/2025: Completed antibiotics 8. Past history of CVA: History of remote left lacunar infarct. On aspirin and statin, continued 9. Depression and anxiety: On Flexotard continue DVT: SCDs Charges/Coding Visit Charges Inpatient E&M: 76936 Subs Hosp L2
--- NOTE | 2025-02-11 09:45 | PN.CARD_ITS ---
Subjective Subjective Patient seen and evaluated. Appears to be stable. Doing minimally better Objective Data Vital Signs: Vital Signs Temp Pulse Resp BP Pulse Ox O2 Del Method O2 Flow Rate 97.5 F L 72 14 112/49 L 95 Mechanical Ventilator 35 02/11/25 08:00 02/11/25 09:00 02/11/25 09:00 02/11/25 09:00 02/11/25 09:00 02/11/25 09:00 02/10/25 21:00 FiO2 35 02/11/25 09:00 Oxygen Flow Rate (L/min) 35 Oxygen Delivery Method Mechanical Ventilator Weight: 236 lb 12.423 oz Body Mass Index (BMI) 39.4 Intake & Output: Intake and Output for Last 24 Hours 02/09/25 02/10/25 02/11/25 23:59 23:59 23:59 Intake Total 1698.33 / 1722.53 2074.85 / 2169.05 486.35 / 486.35 Output Total 3330 / 3330 4000 / 4000 1100 / 1100 Balance -1631.67 / -1607.47 -1925.15 / -1830.95 -613.65 / -613.65 Lab / Micro Data 02/11/25 04:25 02/11/25 04:25 Labs: Laboratory Results - last 24 hr 02/10/25 12:27: POC Glucose 296 H 02/10/25 18:05: POC Glucose 300 H 02/10/25 23:43: POC Glucose 327 H 02/11/25 04:25: WBC 11.7 H, RBC 3.91 L, Hgb 8.4 L, Hct 28.1 L, MCV 71.9 L, MCH 21.5 L, MCHC 29.9 L, RDW Std Deviation 43.4, RDW Coeff of Bulmaro 16.8 H, Plt Count 261, MPV 10.0, Immature Gran % (Auto) 0.700, Neut % (Auto) 81.0 H, Lymph % (Auto) 7.9 L, Ada % (Auto) 9.0, Eos % (Auto) 0.9, Baso % (Auto) 0.5, Absolute Neuts (auto) 9.5 H, Absolute Lymphs (auto) 0.92, Nucleated RBC % 0, Sodium 140, Potassium 3.2 L, Chloride 96 L, Carbon Dioxide 28.8, Anion Gap 15, BUN 102 H*, C reatinine 2.37 H, Estim Creat Clear Calc 24.93 L, Est GFR (MDRD) Non-Af 21 L, B UN/Creatinine Ratio 43.0 H, Glucose 422 H, Calcium 8.5 02/11/25 06:01: POC Glucose 391 H Micro: Microbiology 02/05/25 12:15 Blood Culture (Wb) - Left Wrist Blood Culture - Final No growth in 5 days. 02/05/25 12:04 Blood Culture (Wb) - Right Hand Blood Culture - Final No growth in 5 days. 02/08/25 11:15 Sputum, Induced/Lukens Gram Stain - Final 02/08/25 11:15 Sputum, Induced/Lukens Respiratory Culture - Final Mixed normal respiratory dave. No Streptococcus pneumoniae, beta-hemolytic Streptococcus or Staphylococcus aureus isolated. Rhythm Strip Rhythm Strip: Sinus Rhythm Rate: 104 Cardiology Labs/Tests 02/11/25 04:25: WBC 11.7 H, RBC 3.91 L, Hgb 8.4 L, Hct 28.1 L, MCV 71.9 L, MCH 21.5 L, MCHC 29.9 L, Plt Count 261, MPV 10.0, Immature Gran % (Auto) 0.700, Neut % (Auto) 81.0 H, Lymph % (Auto) 7.9 L, Ada % (Auto) 9.0, Eos % (Auto) 0.9, Baso % (Auto) 0.5, Absolute Neuts (auto) 9.5 H, Nucleated RBC % 0, Sodium 140, P otassium 3.2 L, Chloride 96 L, Carbon Dioxide 28.8, Anion Gap 15, BUN 102 H*, C reatinine 2.37 H, Est GFR (MDRD) Non-Af 21 L, BUN/Creatinine Ratio 43.0 H, G lucose 422 H, Calcium 8.5 Rhythm: EKG: ECHO: Stress Test: Cardiac Cath: PCI: CT Surgery: Holter monitor: EPS: PPM: CXR: Chest CT Scan: Physical Exam Const General Appearance: intubated and patient mechanically ventilated HEENT normocephalic Eyes PERRL and conjunctivae normal Neck supple and no JVD Resp normal respiratory effort, no retractions and no use of accessory muscles Auscultation: Negative for crackles, rales, rhonchi or wheezes Cardio regular rate, regular rhythm, S1 normal heart sound, S2 normal heart sound and no murmurs GI soft to palpation and non-distended; Negative for hepatosplenomegaly Extremity no clubbing, cyanosis or edema Skin no rashes or lesions noted Neuro Sensorium / Orientation: sedated on vent Psych Appearance: intubated Assessment & Plan Assessment/Plan (1) Acute on chronic combined systolic (congestive) and diastolic (congestive) heart failure: PLAN: * Patient's most recent echo on this admission shows that her ejection fraction has dropped from 35% down to 15%. She does have segmental wall motion abnormalities in the inferior and posterior segments the remainder of the LV is globally dilated. * Will continue with intravenous Lasix at this time and see how she does. * Will resume carvedilol when her blood pressure allows. * Overall there is some mild improvement. Will proceed with a course. (2) Secondary pulmonary arterial hypertension: PLAN: Patient's pulmonary pressures estimated 58 mmHg. This is likely secondary to her severe left ventricular systolic dysfunction. PLAN: Plan 1. Try to reinstitute Coreg 3.125-6.25 mg twice daily, when blood pressure is able to tolerate Depending on the recovery of her renal function further recommendations will be made. She appears to have some segmental abnormalities noted but at this time there are no plans to pursue invasive approach to therapy.
[2025-02-11] MEDS: Isosorbide DN 10 MG Tablet 5 MG PO ×2 (10:07→21:01)
[2025-02-11] MEDS: FLUoxetine 10 MG Capsule PO (10:07)
[2025-02-11] MEDS: Sodium Ferric Gluconat/Sucrose 250 MG in 0.9% Normal Saline (250mL Bag) 250 ML 135 MG IV (10:13)
--- NOTE | 2025-02-11 10:27 | PN.CC_ITS ---
Objective Data Objective Data Vital Signs: Vital Signs Last response 3 Temperature 36.4 C L 02/11/25 08:00 Temperature Source Temporal 02/11/25 08:00 Pulse Rate 69 02/11/25 10:00 Pulse Strength Weak (1+) 02/09/25 10:00 Respiratory Rate 14 02/11/25 10:00 Respiratory Effort Mechanically Ventilated 02/11/25 08:00 Respiratory Depth Normal 02/11/25 08:00 Respiratory Pattern Normal 02/11/25 08:00 Blood Pressure 117/51 L 02/11/25 10:00 Blood Pressure Mean 73 02/11/25 10:00 Blood Pressure Source Monitor 02/11/25 10:00 Blood Pressure Position Semi-Fowlers 02/11/25 10:00 Blood Pressure Location Right Forearm 02/11/25 10:00 Pulse Ox 95 02/11/25 10:00 Oxygen Delivery Method Mechanical Ventilator 02/11/25 10:00 Oxygen Flow Rate (L/min) 35 02/10/25 21:00 Fraction of Inspired Oxygen (FIO2) 35 02/11/25 10:00 I&O: I&O Last 24 Hours 3 02/10/25 02/10/25 02/11/25 11:59 23:59 11:59 Intake Total 1146.93 / 2169.05 927.92 / 2169.05 500.55 / 500.55 Output Total 1800 / 4000 2200 / 4000 1450 / 1450 Balance -653.07 / -1830.95 -1272.08 / -1830.95 -949.45 / -949.45 I&O: Total Stay 3 02/05/25 09:43 thru 02/11/25 10:00 Intake Total 5945.46 Output Total 18793 Balance -6294.54 Current Meds Ordered / Administered: Current meds ordered / Administered 3 Generic Name Dose Route Start Last Admin Trade Name Freq PRN Reason Stop Dose Admin Acetaminophen 650 mg 02/05/25 13:41 02/07/25 23:29 Acetaminophen 325 Mg Tablet PO 650 mg Q6H PRN PRN Administration Pain 1-10 Or Fever >100.7 Acetylcysteine 800 mg 02/10/25 11:30 02/11/25 02:20 Acetylcysteine 800 Mg/4 Ml Vial.Neb. INHALATION 800 mg Q8H.RT PARMINDER Administration Albuterol Sulfate 2.5 mg 05/17/25 11:30 02/11/25 02:21 Albuterol 2.5 Mg/3 Ml Vial.Neb. INHALATION 2.5 mg Q8H.RT PARMINDER Administration Aspirin 81 mg 02/06/25 08:00 02/11/25 08:07 Aspirin E.C. 81 Mg Tablet PO 81 mg BREAKFAST PARMINDER Administration Atorvastatin Calcium 40 mg 02/05/25 22:00 02/10/25 21:58 Atorvastatin Calcium 40 Mg Tablet PO 40 mg QHS PARMINDER Administration Carvedilol 6.25 mg 02/05/25 19:30 02/11/25 08:06 Carvedilol 6.25 Mg Tablet PO 6.25 mg BIDCM PARMINDER Administration Protocol Chlorhexidine Gluconate 15 ml 02/10/25 10:00 02/11/25 08:07 Chlorhexidine 15 Ml PO 15 ml BID PARMINDER Administration Fluoxetine HCl 10 mg 02/06/25 10:00 02/11/25 10:07 Fluoxetine 10 Mg Capsule PO 10 mg DAILY PARMINDER Administration Guaifenesin 10 ml 02/10/25 14:00 02/11/25 07:25 Guaifenesin 10 Ml Udc (200mg/10ml) NG Not Given Q8H PARMINDER Heparin Sodium (Porcine) 5,000 unit 02/08/25 14:00 02/11/25 05:58 Heparin Injection (Vial) 5,000 Unit/Ml Vial SC 5,000 unit Q8 PARMINDER Administration Hydralazine HCl 10 mg 02/06/25 08:30 02/11/25 06:04 Hydralazine 10 Mg Tablet PO 10 mg TID PARMINDER Administration Protocol Furosemide 500 mg/ N/A 50 mls @ 2 mls/hr 02/05/25 13:45 02/11/25 08:00 CONT INF 20 mg/hr .Q25H PARMINDER 2 mls/hr Infusion 20 MG/HR Sodium Chloride 250 mls @ 15 mls/hr 02/05/25 16:53 02/11/25 08:18 IV 0 mls/hr .[id number] PRN Infusion Saline Flush Sodium Chloride 250 mls @ 15 mls/hr 02/05/25 16:53 IV .[id number] PRN Additional IVPB Infusion Fentanyl 100 mls @ 2.5 mls/hr 02/08/25 10:50 02/11/25 10:00 CONT INF 25 mcg/hr UD PARMINDER 2.5 mls/hr Titration Protocol 25 MCG/HR Norepinephrine Bitartrate 8 mg 250 mls @ 9.375 mls/hr 02/08/25 11:30 02/10/25 14:39 / Sodium Chloride CONT INF Not Given .[id number] PARMINDER Protocol 5 MCG/MIN Pantoprazole Sodium 40 mg/ 110 mls @ 330 mls/hr 02/08/25 12:30 02/10/25 09:40 Sodium Chloride IV Infused Q24 PARMINDER Infusion Enteral Nutritional Formula 1,000 mls @ 50 mls/hr 02/09/25 09:30 02/11/25 07:24 Vital High Protein GT Not Given .Q20H PARMINDER Dexmedetomidine HCl 1,000 mcg/ 250 mls @ 14.238 mls/hr 02/10/25 01:30 02/11/25 10:00 Sodium Chloride CONT INF 0.5 mcg/kg/hr .[id number] PARMINDER 14.2 mls/hr Titration Protocol 0.5 MCG/KG/HR Potassium Chloride 10 meq in 100 mls @ 100 mls/hr 02/11/25 08:00 02/11/25 09:35 IV BOLUS 02/11/25 11:59 100 mls/hr Q1H PARMINDER Administration Ferric Sodium Gluconate 270 mls @ 135 mls/hr 02/11/25 09:45 02/11/25 10:13 Complex 250 mg/ Sodium IV 02/11/25 11:44 135 mls/hr Chloride X1 ONE Administration Insulin Human Lispro 0 unit 02/10/25 12:00 02/11/25 06:02 Insulin Lispro 100 Unit/Ml Insuln.Pen SC 6 u Q6 PARMINDER Administration Protocol Isosorbide Dinitrate 5 mg 02/06/25 10:00 02/11/25 10:07 Isosorbide Dn 10 Mg Tablet PO 5 mg BID PARMINDER Administration Protocol Polyethylene Glycol 17 gm 02/07/25 10:00 02/11/25 08:04 Polyethylene Glycol 3350 17 Gm Packet PO Not Given DAILY PARMINDER Senna/Docusate Sodium 2 tablet 02/07/25 10:00 02/11/25 08:04 Senna/Docusate Sodium 1 Tablet PO Not Given BID PARMINDER Sodium Chloride 10 - 40 ml 02/05/25 16:13 02/09/25 21:05 0.9% Saline Lock 10 Ml Syringe IV 20 ml UD PRN Administration SALINE FLUSH Lab / Micro Data 02/11/25 04:25 02/11/25 04:25 Labs: Laboratory Results - last 24 hr 02/10/25 12:27: POC Glucose 296 H 02/10/25 18:05: POC Glucose 300 H 02/10/25 23:43: POC Glucose 327 H 02/11/25 04:25: WBC 11.7 H, RBC 3.91 L, Hgb 8.4 L, Hct 28.1 L, MCV 71.9 L, MCH 21.5 L, MCHC 29.9 L, RDW Std Deviation 43.4, RDW Coeff of Bulmaro 16.8 H, Plt Count 261, MPV 10.0, Immature Gran % (Auto) 0.700, Neut % (Auto) 81.0 H, Lymph % (Auto) 7.9 L, [place] % (Auto) 9.0, Eos % (Auto) 0.9, Baso % (Auto) 0.5, Absolute Neuts (auto) 9.5 H, Absolute Lymphs (auto) 0.92, Nucleated RBC % 0, Sodium 140, Potassium 3.2 L, Chloride 96 L, Carbon Dioxide 28.8, Anion Gap 15, BUN 102 H*, C reatinine 2.37 H, Estim Creat Clear Calc 24.93 L, Est GFR (MDRD) Non-Af 21 L, B UN/Creatinine Ratio 43.0 H, Glucose 422 H, Calcium 8.5 02/11/25 06:01: POC Glucose 391 H Micro: Microbiology 02/05/25 12:15 Blood Culture (Wb) - Left Wrist Blood Culture - Final No growth in 5 days. 02/05/25 12:04 Blood Culture (Wb) - Right Hand Blood Culture - Final No growth in 5 days. 02/08/25 11:15 Sputum, Induced/Lukens Gram Stain - Final 02/08/25 11:15 Sputum, Induced/Lukens Respiratory Culture - Final Mixed normal respiratory dave. No Streptococcus pneumoniae, beta-hemolytic Streptococcus or Staphylococcus aureus isolated. Rhythm Strip Rhythm Strip: Sinus Rhythm Rate: 104 Assessment and Plan . Assessment and plan: Subjective: Intubated, sedated. No acute events o/n. Afebrile. Good UOP. Precedex @ 0.5 Fent @ 25 Lasix @ 20 14 450 5 35 Physical Exam: Gen - NAD, obese, intubated HEENT - MMM. ETT in place Resp - Diminished BS. Mechanically ventilated CV - RRR. No m/g/r Abd - Soft, NT, ND Ext - No c/c. +edema (improving) Skin - No rashes? Neuro - Sedated, intubated I have reviewed the pertinent vital sign, laboratory, and imaging data. ASSESSMENT: #Acute hypoxic and hypercapneic respiratory failure ? intubated 02/08 #CHF exacerbation ? EF 15% #Sepsis #Presumptive E coli UTI #ELIDA on CKD #h/o CVA #DM #Anemia #Depression/anxiety #Morbid obesity PLAN: -Cont MV; settings reviewed/adjusted; F/U AM CXR & ABG; SAT +/- SBT as tolerated -Cont IV lasix gtt, PRN metolazone as per nephrology and cardiology -Cont rocephin -Monitor Cr, UOP -Follow CBC TFs Heparin, PPI Poor prognosis Full Code Critical Care Time: 50 min The entirety of this encounter was done via telemedicine using both audio and video. Consent was unable to be obtained for the telemedicine encounter due to the patient's mental status.
--- NOTE | 2025-02-11 10:50 | RAD_ITS ---
EXAM: XR Chest, 1 View CLINICAL INDICATION: RESP FAILURE VENT TECHNIQUE: Frontal view of the chest. COMPARISON: XR Chest dated 02/10/2025 FINDINGS: LUNGS AND PLEURAL SPACES: Bibasilar atelectasis or pneumonia. Bilateral pleural effusions. HEART: Cardiomegaly with mild congestion. MEDIASTINUM: Unremarkable. Normal mediastinal contour. BONES/JOINTS: Unremarkable. No acute fracture. TUBES, LINES AND DEVICES: Right internal jugular central venous catheter tip in the superior vena cava. The endotracheal tube (ETT) is in satisfactory position. Enteric tube tip cannot be seen but is below the diaphragm. RAD/Chest 1 View (Portable) IMPRESSION: 1. Bibasilar atelectasis or pneumonia. 2. Cardiomegaly with mild congestion. 3. Bilateral pleural effusions. 4. No significant change from the prior exam. Reading Location: [id number]
[2025-02-11 11:24] LABS: Allen Test Positive; Base Excess 11 mmol/L (-2 to +2); Bicarbonate 33.9 mmol/L (22-26); Blood Gas Specimen Type ART; Mode AC; O2 Delivery Device Adult Vent; PEEP 5; PO2 63 mmHG (75-100); RR 14; SITE R Radial; SO2 93 % (95-99); Total Carbon Dioxide 35 mmol/L; pCO2 43.8 mmHg (35-45)
[2025-02-11] MEDS: Vital High Protein 1,000 ML 50 ML GT (12:29)
[2025-02-11 12:44] LABS: Bedside Glucose 415 mg/dL (74-106)
[2025-02-11] MEDS: Pantoprazole Sodium 40 MG in 0.9% Normal Saline (100mL MB+) 100 ML 330 MG IV (13:31)
[2025-02-11] MEDS: guaiFENesin 10 ML UDC (200MG/10ML) NG ×2 (13:32→21:00)
[2025-02-11] MEDS: dexMEDEtomidine 1,000 MCG in 0.9% Normal Saline (250mL Bag) 240 ML 14.2 MCG CONT INF (15:35)
[2025-02-11] MEDS: TITRATION PARAMETER CHANGE 1 EACH IV (15:58)
[2025-02-11 18:06] LABS: Bedside Glucose 443 mg/dL (74-106)
[2025-02-11] MEDS: Atorvastatin Calcium 40 MG Tablet PO (21:00)
[2025-02-11] MEDS: Menthol/Lanolin/Calamine/Znox 113 GM Tube 1 APPLIC TOPICAL (21:01)
[2025-02-11] MEDS: Insulin Glargine-YFGN 100 UNIT/ML Pen 10 UNIT SC (21:02)
[2025-02-11] MEDS: 0.9% Saline Lock 10 ML Syringe IV (21:03)
[2025-02-11 21:28] LABS: Bedside Glucose 415 mg/dL (74-106)
[2025-02-12] VITALS (36 sets, daily range): BP systolic 108–136; BP diastolic 40–66; PULSE 65–72; RESP 14–27; TEMP 36.4–37.1; O2SAT 92–99; BMI 39.5
[2025-02-12] MEDS: Insulin Lispro 100 UNIT/ML INSULN.PEN SC ×6 (01:29→21:01)
[2025-02-12 01:47] LABS: Bedside Glucose 393 mg/dL (74-106)
[2025-02-12] MEDS: Acetylcysteine 800 MG/4 ML VIAL.NEB. INHALATION ×3 (03:41→19:20)
[2025-02-12] MEDS: Albuterol 2.5 MG/3 ML VIAL.NEB. INHALATION ×3 (03:41→19:20)
--- NOTE | 2025-02-12 05:30 | RAD_ITS ---
PROCEDURE: CHEST 1 VIEW (PORTABLE) 02/12/2025 REASON FOR EXAM: RESP FAILURE VENT TECHNIQUE: Frontal view of the chest. COMPARISON: 02/11/2025 FINDINGS: Right IJ line, endotracheal tube, nasogastric tube crossing the diaphragm and tip off the inferior edge of the film are again noted and appear within satisfactory position as imaged. No significant interval change in appearance of the lungs with increased appearing perihilar markings, possible mild edema. Bilateral small pleural effusions again suggested. Cardiac silhouette not significantly changed. RAD/Chest 1 View (Portable) IMPRESSION: No significant interval change in appearance of the chest as above. Reading Location: [id number]
[2025-02-12] MEDS: hydrALAZINE 10 MG Tablet PO ×3 (05:43→20:56)
[2025-02-12] MEDS: guaiFENesin 10 ML UDC (200MG/10ML) NG ×3 (05:43→20:56)
[2025-02-12] MEDS: Heparin Injection (Vial) 5,000 UNIT/ML VIAL 5000 UNIT SC ×3 (05:44→20:56)
[2025-02-12 05:50] LABS: Absolute Lymphocyte Count 0.88 X10^3/uL (0.83-4.51); Absolute Neutrophil Count 8.5 X10^3/uL (2.0-7.7); Basophil# 0.06 X10^3/uL; Basophil% 0.6 % (0-1); Eosinophil# 0.19 X10^3/uL; Eosinophils% 1.7 % (0-5); Hematocrit 27.3 % (37-47); Hemoglobin 8.1 g/dL (12.0-15.0); Lymphocyte # 0.88 X10^3/ul (0.83-4.51); Lymphocyte % 8.1 % (19-41); Mean Corp Hgb Conc 29.7 g/dL (32-36); Mean Corpuscular Hgb 21.5 pg (27.0-32.0); Mean Corpuscular Volume 72.6 fL (81-99); Mean Platelet Vol. 9.8 fl (6.2-12.0); Monocyte# 1.14 X10^3/uL; Monocyte% 10.5 % (0-10); NRBC Flagged by Analyzer 0 % (0-5); Neutrophil # 8.48 X10^3/uL (2.7-7.7); Neutrophil % 77.9 % (47-70); Platelet Count 246 K/mm3 (150-450); RBC Distribution Width CV 17.4 % (11.6-14.6); RBC Distribution Width SD 45.2 fl (35.1-43.9); Red Blood Count 3.76 M/mm3 (4.2-5.4); White Blood Count 10.9 K/mm3 (4.4-11.0)
[2025-02-12 05:56] LABS: Bedside Glucose 386 mg/dL (74-106)
[2025-02-12 06:02] LABS: Allen Test Positive; Base Excess 10 mmol/L (-2 to +2); Bicarbonate 32.3 mmol/L (22-26); Blood Gas Specimen Type ART; Mode AC; O2 Delivery Device Adult Vent; PEEP 5; PO2 127 mmHG (75-100); RR 14; SITE R Radial; SO2 99 % (95-99); Total Carbon Dioxide 33 mmol/L; pCO2 35.8 mmHg (35-45); pH 7.56 (7.35-7.45)
[2025-02-12 06:11] LABS: Anion Gap 13 (5-15); BUN 110 mg/dL (4-19); BUN/Creat Ratio 46.6 RATIO (10-20); Calcium,Total 8.3 mg/dL (7.6-11.0); Carbon Dioxide 30.1 mmol/L (21.0-32.0); Chloride 94 mmol/L (98-108); Creatinine, Serum 2.36 mg/dL (0.70-1.20); EST Glomerular Filtration Rate 21 (>60); Estimated Creatinine Clearance 24.73 ml/min (50-250); Glucose 457 mg/dL (70-99); Potassium 3.4 mmol/L (3.3-5.1); Sodium Level 137 mmol/L (133-145)
[2025-02-12] MEDS: Furosemide 500 MG in Empty Viaflex 50 mL 1 EACH CONT INF (06:35)
[2025-02-12] MEDS: Menthol/Lanolin/Calamine/Znox 113 GM Tube 1 APPLIC TOPICAL ×3 (06:36→20:57)
--- NOTE | 2025-02-12 07:23 | PN.CARD_ITS ---
Subjective Subjective Patient seen and evaluated. She is more conversant today Objective Data Vital Signs: Vital Signs Temp Pulse Resp BP Pulse Ox O2 Del Method O2 Flow Rate 97.6 F L 71 14 110/45 L 94 Mechanical Ventilator 35 02/12/25 06:00 02/12/25 07:00 02/12/25 07:00 02/12/25 07:00 02/12/25 07:00 02/12/25 07:00 02/10/25 21:00 FiO2 35 02/12/25 07:00 Oxygen Flow Rate (L/min) 35 Oxygen Delivery Method Mechanical Ventilator Weight: 237 lb 3.478 oz Body Mass Index (BMI) 39.5 Intake & Output: Intake and Output for Last 24 Hours 02/10/25 02/11/25 02/12/25 23:59 23:59 23:59 Intake Total 2074.85 / 2169.05 2930.32 / 3023.72 287.5 / 287.5 Output Total 4000 / 4000 2300 / 2300 750 / 750 Balance -1925.15 / -1830.95 630.32 / 723.72 -462.5 / -462.5 Lab / Micro Data 02/12/25 05:37 02/12/25 05:37 Labs: Laboratory Results - last 24 hr 02/11/25 12:21: POC Glucose 415 H 02/11/25 17:26: POC Glucose 443 H 02/11/25 20:54: POC Glucose 415 H 02/12/25 01:28: POC Glucose 393 H 02/12/25 05:34: POC Glucose 386 H 02/12/25 05:37: WBC 10.9, RBC 3.76 L, Hgb 8.1 L, Hct 27.3 L, MCV 72.6 L, MCH 21.5 L, MCHC 29.7 L, RDW Std Deviation 45.2 H, RDW Coeff of Bulmaro 17.4 H, Plt Count 246, MPV 9.8, Immature Gran % (Auto) 1.200 H, Neut % (Auto) 77.9 H, Lymph % (Auto) 8.1 L, [place] % (Auto) 10.5 H, Eos % (Auto) 1.7, Baso % (Auto) 0.6, A bsolute Neuts (auto) 8.5 H, Absolute Lymphs (auto) 0.88, Nucleated RBC % 0, Sodium 137, Potassium 3.4, Chloride 94 L, Carbon Dioxide 30.1, Anion Gap 13, BUN 110 H*, Creatinine 2.36 H, Estim Creat Clear Calc 24.73 L, Est GFR (MDRD) Non-Af 21 L, BUN/Creatinine Ratio 46.6 H, Glucose 457 H*, Calcium 8.3 ABG Data ABG results: ABG 02/11/25 02/12/25 11:21 05:57 Specimen Type ART ART Sample Site R Radial R Radial pH 7.50 H 7.56 H Bicarbonate Actual 33.9 H 32.3 H Total CO2 35 33 Base Excess 11 H 10 H O2 Saturation 93 L 99 O2 % 35.0 35.0 ABG pCO2 43.8 35.8 ABG pO2 63 L 127 H Harvey Test Positive Positive Respiration Rate 14 14 O2 Delivery Device Adult Vent Adult Vent Vent Mode AC AC Tidal Volume 450.0 450.0 POC PEEP 5 5 Rhythm Strip Rhythm Strip: Sinus Rhythm Rate: 104 Cardiology Labs/Tests 02/11/25 11:21: pH 7.50 H, Bicarbonate Actual 33.9 H, Base Excess 11 H, O2 Saturation 93 L, ABG pCO2 43.8, ABG pO2 63 L, Harvey Test Positive 02/12/25 05:37: WBC 10.9, RBC 3.76 L, Hgb 8.1 L, Hct 27.3 L, MCV 72.6 L, MCH 21.5 L, MCHC 29.7 L, Plt Count 246, MPV 9.8, Immature Gran % (Auto) 1.200 H, N eut % (Auto) 77.9 H, Lymph % (Auto) 8.1 L, [place] % (Auto) 10.5 H, Eos % (Auto) 1.7, Baso % (Auto) 0.6, Absolute Neuts (auto) 8.5 H, Nucleated RBC % 0, Sodium 137, Potassium 3.4, Chloride 94 L, Carbon Dioxide 30.1, Anion Gap 13, BUN 110 H* , Creatinine 2.36 H, Est GFR (MDRD) Non-Af 21 L, BUN/Creatinine Ratio 46.6 H, G lucose 457 H*, Calcium 8.3 02/12/25 05:57: pH 7.56 H, Bicarbonate Actual 32.3 H, Base Excess 10 H, O2 Saturation 99, ABG pCO2 35.8, ABG pO2 127 H, Harvey Test Positive Rhythm: EKG: ECHO: Stress Test: Cardiac Cath: PCI: CT Surgery: Holter monitor: EPS: PPM: CXR: Chest CT Scan: Radiography Diagnostic Testing: Radiology Impression Chest X-Ray 02/11/25 10:50 IMPRESSION: 1. Bibasilar atelectasis or pneumonia. 2. Cardiomegaly with mild congestion. 3. Bilateral pleural effusions. 4. No significant change from the prior exam. Reading Location: [facility] Chest X-Ray 02/12/25 05:30 IMPRESSION: No significant interval change in appearance of the chest as above. Reading Location: [facility] Physical Exam Const General Appearance: intubated and patient mechanically ventilated HEENT normocephalic Eyes PERRL and conjunctivae normal Neck supple and no JVD Resp normal respiratory effort, no retractions and no use of accessory muscles Auscultation: Negative for crackles, rales, rhonchi or wheezes Cardio regular rate, regular rhythm, S1 normal heart sound, S2 normal heart sound and no murmurs GI soft to palpation and non-distended; Negative for hepatosplenomegaly Extremity no clubbing, cyanosis or edema Skin no rashes or lesions noted Neuro Sensorium / Orientation: sedated on vent Psych Appearance: intubated Assessment & Plan Assessment/Plan (1) Acute on chronic combined systolic (congestive) and diastolic (congestive) heart failure: PLAN: * Patient's most recent echo on this admission shows that her ejection fraction has dropped from 35% down to 15%. She does have segmental wall motion abnormalities in the inferior and posterior segments the remainder of the LV is globally dilated. * Will continue with intravenous Lasix at this time and see how she does. * Will resume carvedilol when her blood pressure allows. * Overall there is some mild improvement. Will proceed with a course. (2) Secondary pulmonary arterial hypertension: PLAN: Patient's pulmonary pressures estimated 58 mmHg. This is likely secondary to her severe left ventricular systolic dysfunction. PLAN: Plan 1. Try to reinstitute Coreg 3.125-6.25 mg twice daily, when blood pressure is able to tolerate Depending on the recovery of her renal function further recommendations will be made. She appears to have some segmental abnormalities noted but at this time there are no plans to pursue invasive approach to therapy.
[2025-02-12] MEDS: Aspirin E.C. 81 MG Tablet PO (07:46)
[2025-02-12] MEDS: Isosorbide DN 10 MG Tablet 5 MG PO ×2 (07:46→20:56)
[2025-02-12] MEDS: Senna/Docusate Sodium 1 Tablet 2 TABLET PO ×2 (07:46→20:56)
[2025-02-12] MEDS: Carvedilol 6.25 MG Tablet PO ×2 (07:47→17:16)
[2025-02-12] MEDS: FLUoxetine 10 MG Capsule PO (07:47)
[2025-02-12] MEDS: Chlorhexidine 15 ML PO ×2 (07:48→20:57)
--- NOTE | 2025-02-12 08:38 | PN.HOSP_ITS ---
Subjective Subjective Remains intubated she is only on Precedex. Will perform spontaneous breathing trial see if we can extubate today Objective Data Objective Data Vital Signs: Vital Signs Temp Pulse Resp BP Pulse Ox O2 Del Method O2 Flow Rate 97.6 F L 68 14 108/40 L 94 Mechanical Ventilator 35 02/12/25 06:00 02/12/25 08:00 02/12/25 08:00 02/12/25 08:00 02/12/25 08:00 02/12/25 08:00 02/10/25 21:00 FiO2 35 02/12/25 08:00 Oxygen Flow Rate (L/min) 35 Oxygen Delivery Method Mechanical Ventilator Weight: 237 lb 3.478 oz Body Mass Index (BMI) 39.5 Intake & Output: Intake and Output for Last 24 Hours 02/11/25 02/12/25 02/13/25 03:59 03:59 03:59 Intake Total 1796.65 / 1890.85 2927.12 / 3020.52 247.3 / 247.3 Output Total 3750 / 3750 2300 / 2300 750 / 750 Balance -1953.35 / -1859.15 627.12 / 720.52 -502.7 / -502.7 Lab / Micro Data 02/12/25 05:37 02/12/25 05:37 Labs: Laboratory Results - last 24 hr 02/11/25 12:21: POC Glucose 415 H 02/11/25 17:26: POC Glucose 443 H 02/11/25 20:54: POC Glucose 415 H 02/12/25 01:28: POC Glucose 393 H 02/12/25 05:34: POC Glucose 386 H 02/12/25 05:37: WBC 10.9, RBC 3.76 L, Hgb 8.1 L, Hct 27.3 L, MCV 72.6 L, MCH 21.5 L, MCHC 29.7 L, RDW Std Deviation 45.2 H, RDW Coeff of Bulmaro 17.4 H, Plt Count 246, MPV 9.8, Immature Gran % (Auto) 1.200 H, Neut % (Auto) 77.9 H, Lymph % (Auto) 8.1 L, [place] % (Auto) 10.5 H, Eos % (Auto) 1.7, Baso % (Auto) 0.6, A bsolute Neuts (auto) 8.5 H, Absolute Lymphs (auto) 0.88, Nucleated RBC % 0, Sodium 137, Potassium 3.4, Chloride 94 L, Carbon Dioxide 30.1, Anion Gap 13, BUN 110 H*, Creatinine 2.36 H, Estim Creat Clear Calc 24.73 L, Est GFR (MDRD) Non-Af 21 L, BUN/Creatinine Ratio 46.6 H, Glucose 457 H*, Calcium 8.3 Micro: Microbiology 02/05/25 12:15 Blood Culture (Wb) - Left Wrist Blood Culture - Final No growth in 5 days. 02/05/25 12:04 Blood Culture (Wb) - Right Hand Blood Culture - Final No growth in 5 days. 02/08/25 11:15 Sputum, Induced/Lukens Gram Stain - Final 02/08/25 11:15 Sputum, Induced/Lukens Respiratory Culture - Final Mixed normal respiratory dave. No Streptococcus pneumoniae, beta-hemolytic Streptococcus or Staphylococcus aureus isolated. 02/08/25 00:05 Stool Stool Occult Blood (TREVOR) - Final 02/05/25 11:20 Urine Catheter - Catheter Urine Culture - Final Presumptive E. coli 02/05/25 16:50 Nasal Secretion MRSA (PCR) - Final 02/05/25 16:50 Wound - Leg, Left Skin and Soft Tissue MRSA/MSSA (PCR - Final ABG Data ABG results: ABG 02/11/25 02/12/25 11:21 05:57 Specimen Type ART ART Sample Site R Radial R Radial pH 7.50 H 7.56 H Bicarbonate Actual 33.9 H 32.3 H Total CO2 35 33 Base Excess 11 H 10 H O2 Saturation 93 L 99 O2 % 35.0 35.0 ABG pCO2 43.8 35.8 ABG pO2 63 L 127 H Harvey Test Positive Positive Respiration Rate 14 14 O2 Delivery Device Adult Vent Adult Vent Vent Mode AC AC Tidal Volume 450.0 450.0 POC PEEP 5 5 Radiography Diagnostic Testing: Radiology Impression Chest X-Ray 02/11/25 10:50 IMPRESSION: 1. Bibasilar atelectasis or pneumonia. 2. Cardiomegaly with mild congestion. 3. Bilateral pleural effusions. 4. No significant change from the prior exam. Reading Location: [facility] Chest X-Ray 02/12/25 05:30 IMPRESSION: No significant interval change in appearance of the chest as above. Reading Location: [facility] Rhythm Strip Rhythm Strip: Sinus Rhythm Rate: 104 Physical Exam Const General Appearance: intubated and patient mechanically ventilated HEENT normocephalic Eyes PERRL and conjunctivae normal Neck supple and no JVD Resp normal respiratory effort, no retractions and no use of accessory muscles Auscultation: Negative for crackles, rales, rhonchi or wheezes Cardio regular rate, regular rhythm, S1 normal heart sound, S2 normal heart sound and no murmurs GI soft to palpation and non-distended; Negative for hepatosplenomegaly Extremity no clubbing, cyanosis or edema Skin no rashes or lesions noted Neuro Sensorium / Orientation: sedated on vent Psych Appearance: intubated Assessment & Plan Assessment/Plan (1) Acute on chronic combined systolic (congestive) and diastolic (congestive) heart failure: (2) Cellulitis of right anterior lower leg: PLAN: Plan 1. Acute on chronic combined respiratory failure due to heart failure exacerbation: The patient is being admitted in ICU on BiPAP. ABG stat ordered. Discussed with the ED physician to watch for half an hour if she does not improve will need intubation prior to transfer to ICU. Currently on 6 L of oxygen. Lactic acidosis most likely due to pulmonary edema/hypoxia. Patient does not have signs and symptoms of sepsis. The patient not on home oxygen or NIPPV at home 02/06: ABG 7.21/50.7/133 at BiPAP 60% FiO2. Bicarb 22.Bicarb in BMP was 15.7 on 02/05. Probably bicarb and BMP are normal. Today's bicarb is 20. Continue BiPAP intermittently 02/07: The patient has been off BiPAP last night. On 4 to 5 L of oxygen. Gradually improving. 02/08: Patient also neutrophile flow oxygen, looks dyspneic at rest. ABG ordered. 02/09/2025: She was intubated yesterday currently FiO2 of 40% on the ventilator. Continue with Lasix drip 02/10/2025: Slow improvement on her FiO2 down to 45% today. Continue with the Lasix drip 02/11/2025: FiO2 down to 35% anticipate spontaneous breathing trial today by telemetry ICU 02/12/2025: Spontaneous breathing trial and see if we can extubate 2. Acute on chronic combined heart failure: BNP about 30,000. Chest x-ray initially reviewed and shows pulmonary edema, cardiomegaly and blunting of both CP angles. Twelve-lead EKG sinus tachycardia, 104 bpm, QRS 168, QTc 531 ms. LBBB. 02/06: Total urine output 455 mL, 325 since last night. Discussed with the side laster tack. Continue the same regimen 02/07: Urine output is low. On furosemide 20 mg/h. 1 dose of metolazone. Urine output 1050 mL documented yesterday. 300 mL since midnight. Client Services Specialist consult reviewed and appreciated 02/08: Even on 20 mg Lasix per hour infusion, patient not putting good urine total 600 mL. Neurologist input needed. 02/09/2025: Continue with Lasix drip, currently intubated 3. Elevated troponin probably due to increased cardiac demand with suspicion of possible non-STEMI: Patient complained of nondescriptive chest pain. Lesion discussed with side laster tack Dr. Cardona. Recommended enoxaparin 1 dose. Troponin 218, 241. Third troponin pending. EKG as described above. Patient has CAD status post stents, on aspirin and statin. Hold carvedilol because of CHF exacerbation/fluid overload and resume once euvolemic. 4. ELIDA on CKD stage IV: Patient baseline creatinine runs around 2.0 as in January 2025. Admitting BUN/creatinine 58/2.32 therefore ELIDA on CKD stage IV. Client Services Specialist consulted. Patient has hyperkalemia, 5.5, high anion gap metabolic acidosis, AG 19, bicarb 15. ABG ordered as mentioned above. Kayexalate and hyperkalemia cocktail ordered. Repeat BMP after 4 hours. Hold losartan metolazone. 02/06: BUN/creatinine 70/2.45. Continue furosemide drip. Client Services Specialist on board. 02/07: Today's BMP is pending. 02/08: BUN/creatinine 86/2.6. BMP yesterday was 3.5. 02/09/2025: Appreciate nephrology's assistance, renal function appears to be stable with creatinine 2.48 5 , continues to have slow improvement in her creatinine down to 2.37 today, BUN is up to 102 5. Chronic severe anemia: H&H 8.0/27.9%. MCV 75 RDW elevated 17.0. Possible chronic iron deficiency anemia. Monitor CBC. Iron workup ordered for tomorrow a.m.. 02/07: Hemoglobin dropped to 7.2%. It is microcytic with elevated RDW. Stool for occult blood ordered. H&H ordered for in the evening. Patient only on baby aspirin. 02/08: H&H 7.7/28%. Stool for occult blood negative. B12 was normal 635 07/2024. TSH normal. Cortisol 11.2 normal in July 2024. Anemia workup ordered. Reticulocyte panel and LDH ordered 02/09/2025: Iron is 16 with a normal TIBC and iron saturation of 5% with normal ferritin, she likely has a combination of anemia of chronic disease with iron deficiency. She has been transfused today, can likely give IV iron tomorrow 02/10/2025: Hemoglobin today is 8.6, will recheck tomorrow if necessary can give some IV iron 02/11/2025: Continue with a dose of Venofer today 6. DM type II: Last A1c 5.2% in July 2024. Accu-Chek before meals and at bedtime with Humalog sliding scale coverage and hypoglycemia protocol. Most recent glucoses elevated, 259 BMP .135. 02/12/2025: Will continue to monitor and make adjustments as necessary 7. Chronic bilateral fifth metatarsal excision: Superficial ulcer of left lateral leg and contiguous cellulitis: MRSA wound and nasal screen ordered. IV cefazolin given in ED. IV ceftriaxone ordered 02/09/2025: Continue with antibiotics 02/11/2025: Completed antibiotics 8. Past history of CVA: History of remote left lacunar infarct. On aspirin and statin, continued 9. Depression and anxiety: On fluoxetine continue DVT: Heparin Charges/Coding Visit Charges Inpatient E&M: 11436 Subs Hosp L2
[2025-02-12] MEDS: Vital High Protein 1,000 ML 50 ML GT (08:40)
[2025-02-12] MEDS: dexMEDEtomidine 1,000 MCG in 0.9% Normal Saline (250mL Bag) 240 ML 13.4 MCG CONT INF (08:41)
--- NOTE | 2025-02-12 08:53 | WOUNDNOTE ---
wound photo: right foot
[2025-02-12] MEDS: Pantoprazole Sodium 40 MG in 0.9% Normal Saline (100mL MB+) 100 ML 330 MG IV (09:10)
[2025-02-12] MEDS: Insulin Glargine-YFGN 100 UNIT/ML Pen 10 UNIT SC ×2 (10:09→21:01)
[2025-02-12 10:28] LABS: Bedside Glucose 394 mg/dL (74-106)
--- NOTE | 2025-02-12 10:53 | PCM.PN.TICU ---
Objective Data Objective Data Vital Signs: Vital Signs Last response Temperature 36.4 C L 02/12/25 06:00 Temperature Source Temporal 02/12/25 06:00 Pulse Rate 70 02/12/25 10:41 Pulse Strength Weak (1+) 02/12/25 08:14 Respiratory Rate 25 H 02/12/25 10:41 Respiratory Effort Mechanically Ventilated 02/12/25 08:00 Respiratory Depth Normal 02/12/25 04:00 Respiratory Pattern Normal 02/12/25 10:41 Blood Pressure 117/48 L 02/12/25 10:00 Blood Pressure Mean 71 02/12/25 10:00 Blood Pressure Source Monitor 02/12/25 10:00 Blood Pressure Position Semi-Fowlers 02/12/25 10:00 Blood Pressure Location Right Arm 02/12/25 10:00 Pulse Ox 95 02/12/25 10:41 Oxygen Delivery Method Mechanical Ventilator 02/12/25 10:00 Oxygen Flow Rate (L/min) 35 02/10/25 21:00 Fraction of Inspired Oxygen (FIO2) 35 02/12/25 10:41 I&O: I&O Last 24 Hours 02/11/25 02/11/25 02/12/25 11:59 23:59 11:59 Intake Total 721.85 / 3023.72 2208.47 / 3023.72 1341.87 / 1341.87 Output Total 1600 / 2300 700 / 2300 750 / 750 Balance -878.15 / 723.72 1508.47 / 723.72 591.87 / 591.87 I&O: Total Stay 02/05/25 09:43 thru 02/12/25 10:03 Intake Total 9717.10 Output Total 70773 Balance -4122.90 Current Meds Ordered / Administered: Current meds ordered / Administered Generic Name Dose Route Start Last Admin Trade Name Freq PRN Reason Stop Dose Admin Acetaminophen 650 mg 02/05/25 13:41 02/07/25 23:29 Acetaminophen 325 Mg Tablet PO 650 mg Q6H PRN PRN Administration Pain 1-10 Or Fever >100.7 Acetylcysteine 800 mg 02/10/25 11:30 02/12/25 10:41 Acetylcysteine 800 Mg/4 Ml Vial.Neb. INHALATION 800 mg Q8H.RT PARMINDER Administration Albuterol Sulfate 2.5 mg 02/10/25 11:30 02/12/25 10:40 Albuterol 2.5 Mg/3 Ml Vial.Neb. INHALATION 2.5 mg Q8H.RT PARMINDER Administration Aspirin 81 mg 02/06/25 08:00 02/12/25 07:46 Aspirin E.C. 81 Mg Tablet PO 81 mg BREAKFAST PARMINDER Administration Atorvastatin Calcium 40 mg 02/05/25 22:00 02/11/25 21:00 Atorvastatin Calcium 40 Mg Tablet PO 40 mg QHS PARMINDER Administration Calamine/Phenol 1 applic 02/11/25 22:00 02/12/25 06:36 Menthol/Lanolin/Calamine/Znox 113 Gm Tube TOPICAL 1 appful TID PARMINDER Administration Protocol Carvedilol 6.25 mg 02/05/25 19:30 02/12/25 07:47 Carvedilol 6.25 Mg Tablet PO 6.25 mg BIDCM PARMINDER Administration Protocol Chlorhexidine Gluconate 15 ml 02/10/25 10:00 02/12/25 07:48 Chlorhexidine 15 Ml PO 15 ml BID PARMINDER Administration Fentanyl Citrate 50 mcg 02/11/25 11:33 Fentanyl 100 Mcg/2 Ml Ampul IV Q1H PRN PRN CPOT score > 3 Fluoxetine HCl 10 mg 02/06/25 10:00 02/12/25 07:47 Fluoxetine 10 Mg Capsule PO 10 mg DAILY PARMINDER Administration Guaifenesin 10 ml 02/10/25 14:00 02/12/25 05:43 Guaifenesin 10 Ml Udc (200mg/10ml) NG 10 ml Q8H PARMINDER Administration Heparin Sodium (Porcine) 5,000 unit 02/08/25 14:00 02/12/25 05:44 Heparin Injection (Vial) 5,000 Unit/Ml Vial SC 5,000 unit Q8 PARMINDER Administration Hydralazine HCl 10 mg 02/06/25 08:30 02/12/25 05:43 Hydralazine 10 Mg Tablet PO 10 mg TID PARMINDER Administration Protocol Furosemide 500 mg/ N/A 50 mls @ 2 mls/hr 02/05/25 13:45 02/12/25 06:35 CONT INF 20 mg/hr .Q25H PARMINDER 2 mls/hr Administration 20 MG/HR Sodium Chloride 250 mls @ 15 mls/hr 02/05/25 16:53 02/11/25 16:00 IV 0 mls/hr .[id number] PRN Infusion Saline Flush Sodium Chloride 250 mls @ 15 mls/hr 02/05/25 16:53 IV .[id number] PRN Additional IVPB Infusion Norepinephrine Bitartrate 8 mg 250 mls @ 9.375 mls/hr 02/08/25 11:30 02/11/25 20:32 / Sodium Chloride CONT INF Not Given .[id number] PARMINDER Protocol 5 MCG/MIN Pantoprazole Sodium 40 mg/ 110 mls @ 330 mls/hr 02/08/25 12:30 02/12/25 09:37 Sodium Chloride IV Infused Q24 PARMINDER Infusion Enteral Nutritional Formula 1,000 mls @ 50 mls/hr 02/09/25 09:30 02/12/25 08:40 Vital High Protein GT 50 mls/hr .Q20H PARMINDER Administration Dexmedetomidine HCl 1,000 mcg/ 250 mls @ 13.425 mls/hr 02/10/25 01:30 02/12/25 10:00 Sodium Chloride CONT INF 0.5 mcg/kg/hr .[id number] PARMINDER 13.4 mls/hr Titration Protocol 0.5 MCG/KG/HR Insulin Glargine 10 unit 02/12/25 10:00 02/12/25 10:09 Insulin Glargine-Yfgn 100 Unit/Ml Pen SC 10 unit BID PARMINDER Administration Insulin Human Lispro 0 unit 02/11/25 18:00 02/12/25 10:09 Insulin Lispro 100 Unit/Ml Insuln.Pen SC 10 units Q4 PARMINDER Administration Protocol Isosorbide Dinitrate 5 mg 02/06/25 10:00 02/12/25 07:46 Isosorbide Dn 10 Mg Tablet PO 5 mg BID PARMINDER Administration Protocol Polyethylene Glycol 17 gm 02/07/25 10:00 02/12/25 08:08 Polyethylene Glycol 3350 17 Gm Packet PO Not Given DAILY PARMINDER Senna/Docusate Sodium 2 tablet 02/07/25 10:00 02/12/25 07:46 Senna/Docusate Sodium 1 Tablet PO 2 tablet BID PARMINDER Administration Sodium Chloride 10 - 40 ml 02/05/25 16:13 02/11/25 21:03 0.9% Saline Lock 10 Ml Syringe IV 40 ml UD PRN Administration SALINE FLUSH Lab / Micro Data 02/12/25 05:37 02/12/25 05:37 Labs: Laboratory Results - last 24 hr 02/11/25 12:21: POC Glucose 415 H 02/11/25 17:26: POC Glucose 443 H 02/11/25 20:54: POC Glucose 415 H 02/12/25 01:28: POC Glucose 393 H 02/12/25 05:34: POC Glucose 386 H 02/12/25 05:37: WBC 10.9, RBC 3.76 L, Hgb 8.1 L, Hct 27.3 L, MCV 72.6 L, MCH 21.5 L, MCHC 29.7 L, RDW Std Deviation 45.2 H, RDW Coeff of Bulmaro 17.4 H, Plt Count 246, MPV 9.8, Immature Gran % (Auto) 1.200 H, Neut % (Auto) 77.9 H, Lymph % (Auto) 8.1 L, [place] % (Auto) 10.5 H, Eos % (Auto) 1.7, Baso % (Auto) 0.6, Absolute Neuts (auto) 8.5 H, Absolute Lymphs (auto) 0.88, Nucleated RBC % 0, Sodium 137, Potassium 3.4, Chloride 94 L, Carbon Dioxide 30.1, Anion Gap 13, BUN 110 H*, Creatinine 2.36 H, Estim Creat Clear Calc 24.73 L, Est GFR (MDRD) Non-Af 21 L, BUN/Creatinine Ratio 46.6 H, Glucose 457 H*, Calcium 8.3 02/12/25 10:08: POC Glucose 394 H ABG Data ABG results: ABG 02/11/25 02/12/25 11:21 05:57 Specimen Type ART ART Sample Site R Radial R Radial pH 7.50 H 7.56 H Bicarbonate Actual 33.9 H 32.3 H Total CO2 35 33 Base Excess 11 H 10 H O2 Saturation 93 L 99 O2 % 35.0 35.0 ABG pCO2 43.8 35.8 ABG pO2 63 L 127 H Ahrvey Test Positive Positive Respiration Rate 14 14 O2 Delivery Device Adult Vent Adult Vent Vent Mode AC AC Tidal Volume 450.0 450.0 POC PEEP 5 5 Rhythm Strip Rhythm Strip: Sinus Rhythm Rate: 104 Imaging Radiology Impression Chest X-Ray 02/11/25 10:50 IMPRESSION: 1. Bibasilar atelectasis or pneumonia. 2. Cardiomegaly with mild congestion. 3. Bilateral pleural effusions. 4. No significant change from the prior exam. Reading Location: [facility] Chest X-Ray 02/12/25 05:30 IMPRESSION: No significant interval change in appearance of the chest as above. Reading Location: [facility] Assessment and Plan . Assessment and plan: Physical Exam: Gen: NAD, obese, intubated HEENT: Pupils: =ETT in place Resp:Diminished BS. Mechanically ventilated CV: RRR. No m/g/r Abd: Soft, NT, ND Ext: No c/c. +edema (minimal/improving) Skin: No rashes? Neuro:awakens, follows, not brisk ASSESSMENT: 1. Acute hypoxic and hypercapneic respiratory failure: Intubated 02/08. On minimal settings: 450/14/35/5. On SBT this am: RR in 20s, VTs in 200s. Not awake enough. Place back on AC/VC. Re-try again tomorrow. 2. Confusion: suspect sedation effect. Was on fentanyl until 02/10. Slowly more awake. At current hindering wean. 3. CHF exac: EF of 15%. Also with moderate MR. Continue lasix gtt. 4. UTI: 2/2 Ecoli. Completed course of antibxs 5. ELIDA on CKD: Cr stable. On lasix gtt. Renal Following 6. FEN: TFs 7. Morbid Obesity 8. PX: SQ heparin Red Bustamante MD Critical Care Time: 50 min The entirety of this encounter was done via telemedicine using both audio and video. Consent was unable to be obtained for the telemedicine encounter due to the patient's mental status. Subjective Subjective on SBT. Mechanics poor. Still lethargic
[2025-02-12] MEDS: metOLazone 5 MG Tablet PO (13:48)
[2025-02-12 14:14] LABS: Bedside Glucose 415 mg/dL (74-106)
--- NOTE | 2025-02-12 15:58 | PCM.PN.REN ---
Subjective Subjective no new events. not much urine output today. BUN higher. cr about the same. Bp is ok. no pressors. Objective Data Objective Data Vital Signs: Vital Signs Temp Pulse Resp BP Pulse Ox O2 Del Method O2 Flow Rate 98.1 F 70 14 120/49 L 93 Mechanical Ventilator 35 02/12/25 12:00 02/12/25 15:01 02/12/25 15:01 02/12/25 15:00 02/12/25 15:01 02/12/25 15:00 02/10/25 21:00 FiO2 30 02/12/25 15:01 Oxygen Flow Rate (L/min) 35 Oxygen Delivery Method Mechanical Ventilator Weight: 107.6 kg Body Mass Index (BMI) 39.5 Intake & Output: Intake and Output for Last 24 Hours 02/10/25 02/11/25 02/12/25 23:59 23:59 23:59 Intake Total 2074.85 / 2169.05 2930.32 / 3023.72 1533.87 / 1533.87 Output Total 4000 / 4000 2300 / 2300 1100 / 1100 Balance -1925.15 / -1830.95 630.32 / 723.72 433.87 / 433.87 Lab / Micro Data 02/12/25 05:37 02/12/25 05:37 Labs: Laboratory Results - last 24 hr 02/11/25 17:26: POC Glucose 443 H 02/11/25 20:54: POC Glucose 415 H 02/12/25 01:28: POC Glucose 393 H 02/12/25 05:34: POC Glucose 386 H 02/12/25 05:37: WBC 10.9, RBC 3.76 L, Hgb 8.1 L, Hct 27.3 L, MCV 72.6 L, MCH 21.5 L, MCHC 29.7 L, RDW Std Deviation 45.2 H, RDW Coeff of Bulmaro 17.4 H, Plt Count 246, MPV 9.8, Immature Gran % (Auto) 1.200 H, Neut % (Auto) 77.9 H, Lymph % (Auto) 8.1 L, Giles % (Auto) 10.5 H, Eos % (Auto) 1.7, Baso % (Auto) 0.6, Absolute Neuts (auto) 8.5 H, Absolute Lymphs (auto) 0.88, Nucleated RBC % 0, Sodium 137, Potassium 3.4, Chloride 94 L, Carbon Dioxide 30.1, Anion Gap 13, BUN 110 H*, Creatinine 2.36 H, Estim Creat Clear Calc 24.73 L, Est GFR (MDRD) Non-Af 21 L, BUN/Creatinine Ratio 46.6 H, Glucose 457 H*, Calcium 8.3 02/12/25 10:08: POC Glucose 394 H 02/12/25 13:44: POC Glucose 415 H Micro: Microbiology 02/05/25 12:15 Blood Culture (Wb) - Left Wrist Blood Culture - Final No growth in 5 days. 02/05/25 12:04 Blood Culture (Wb) - Right Hand Blood Culture - Final No growth in 5 days. 02/08/25 11:15 Sputum, Induced/Lukens Gram Stain - Final 02/08/25 11:15 Sputum, Induced/Lukens Respiratory Culture - Final Mixed normal respiratory dave. No Streptococcus pneumoniae, beta-hemolytic Streptococcus or Staphylococcus aureus isolated. 02/08/25 00:05 Stool Stool Occult Blood (TREVOR) - Final 02/05/25 11:20 Urine Catheter - Catheter Urine Culture - Final Presumptive E. coli 02/05/25 16:50 Nasal Secretion MRSA (PCR) - Final 02/05/25 16:50 Wound - Leg, Left Skin and Soft Tissue MRSA/MSSA (PCR - Final ABG Data ABG results: ABG 02/12/25 05:57 Specimen Type ART Sample Site R Radial pH 7.56 H Bicarbonate Actual 32.3 H Total CO2 33 Base Excess 10 H O2 Saturation 99 O2 % 35.0 ABG pCO2 35.8 ABG pO2 127 H Harvey Test Positive Respiration Rate 14 O2 Delivery Device Adult Vent Vent Mode AC Tidal Volume 450.0 POC PEEP 5 Radiography Diagnostic Testing: Radiology Impression Chest X-Ray 02/12/25 05:30 IMPRESSION: No significant interval change in appearance of the chest as above. Reading Location: [facility] Rhythm Strip Rhythm Strip: Sinus Rhythm Rate: 104 Physical Exam Narrative On ventilator support s1s2 no murmurs Diminished breath sounds abdomen soft Edema bilateral legs morillo + clear yellow urine in bag Assessment & Plan Assessment/Plan (1) ELIDA (acute kidney injury): (2) Chronic kidney disease (CKD): QUALIFIERS: Chronic kidney disease stage: stage 4 (GFR 15-29) Qualified Code(s): N18.4 - Chronic kidney disease, stage 4 (severe) PLAN: Plan Impression/Plan: Patient is a 74-year-old female with past history of type 2 diabetes mellitus, hypertension, CAD, ischemic cardiomyopathy with HFrEF (EF 15%), pulmonary hypertension, stroke, and hyperlipidemia. Patient presents to the hospital on 02/05/2025 with 1 week history of progressively worsening dyspnea and lower extremity edema. Patient was admitted to the hospital for treatment of acute hypoxic respiratory failure requiring NIV. Nephrology is following for ELIDA on CKD. -Hypervolemia acute kidney injury superimposed on CKD stage IV. Baseline SCr 1.80 to 2.00 mg/dL prior to this admission. Suspect ELIDA is secondary to cardiorenal syndrome. peripheral edema is better minimal FiO2 and PEEP failed SBT continue lasix drip metolazone
[2025-02-12 17:34] LABS: Bedside Glucose 386 mg/dL (74-106)
[2025-02-12] MEDS: Atorvastatin Calcium 40 MG Tablet PO (20:56)
[2025-02-12 21:37] LABS: Bedside Glucose 405 mg/dL (74-106)
[2025-02-13] VITALS (33 sets, daily range): BP systolic 101–131; BP diastolic 35–53; PULSE 62–76; RESP 14–26; TEMP 36.6–37.1; O2SAT 30–96; BMI 39.9
[2025-02-13] MEDS: Insulin Lispro 100 UNIT/ML INSULN.PEN SC ×6 (02:12→22:33)
[2025-02-13 02:32] LABS: Bedside Glucose 418 mg/dL (74-106)
[2025-02-13] MEDS: 0.9% Saline Lock 10 ML Syringe IV (03:26)
[2025-02-13] MEDS: dexMEDEtomidine 1,000 MCG in 0.9% Normal Saline (250mL Bag) 240 ML 13.4 MCG CONT INF (03:26)
[2025-02-13] MEDS: Acetylcysteine 800 MG/4 ML VIAL.NEB. INHALATION ×3 (04:10→18:47)
[2025-02-13] MEDS: Albuterol 2.5 MG/3 ML VIAL.NEB. INHALATION ×3 (04:10→18:47)
[2025-02-13 04:26] LABS: Anion Gap 17 (5-15); BUN 121 mg/dL (4-19); BUN/Creat Ratio 48.4 RATIO (10-20); Calcium,Total 8.1 mg/dL (7.6-11.0); Carbon Dioxide 28.2 mmol/L (21.0-32.0); Chloride 93 mmol/L (98-108); EST Glomerular Filtration Rate 19 (>60); Estimated Creatinine Clearance 23.34 ml/min (50-250); Glucose 450 mg/dL (70-99); Potassium 3.1 mmol/L (3.3-5.1); Sodium Level 138 mmol/L (133-145)
[2025-02-13] MEDS: Menthol/Lanolin/Calamine/Znox 113 GM Tube 1 APPLIC TOPICAL ×3 (05:03→22:32)
[2025-02-13] MEDS: guaiFENesin 10 ML UDC (200MG/10ML) NG ×3 (05:03→22:34)
[2025-02-13] MEDS: Heparin Injection (Vial) 5,000 UNIT/ML VIAL 5000 UNIT SC ×2 (05:03→12:48)
[2025-02-13] MEDS: Vital High Protein 1,000 ML 50 ML GT (05:09)
--- NOTE | 2025-02-13 05:16 | RAD_ITS ---
PROCEDURE: CHEST 1 VIEW (PORTABLE) 02/13/2025 REASON FOR EXAM: CHF TECHNIQUE: Frontal view of the chest. COMPARISON: 02/12/2025 FINDINGS: Endotracheal tube again appears not significantly changed in position. Right IJ line again seen. Nasogastric tube again noted crossing the diaphragm extending off the inferior edge of the film. Appearance suggests possible mild interval improvement in the bilateral ill-defined perihilar opacities possible mild edema. Appearance of possible small bilateral pleural effusions not significantly changed. Cardiac silhouette not significantly changed in appearance. RAD/Chest 1 View (Portable) IMPRESSION: Endotracheal tube again appears not significantly changed in position. Right IJ line again seen. Nasogastric tube again noted crossing the diaphragm extending off the inferior edge of the film. Appearance suggests possible mild interval improvement in the bilateral ill-def ined perihilar opacities possible mild edema. Appearance of possible small bilateral pleural effusions not significantly santizo ged. Reading Location: [id number]
[2025-02-13 05:24] LABS: Bedside Glucose 389 mg/dL (74-106)
[2025-02-13] MEDS: CHLORHEXIDINE GLUC 2% CLOTH 1 EACH TOWELETTE TOPICAL (05:31)
[2025-02-13 05:38] LABS: Allen Test Positive; Base Excess 11 mmol/L (-2 to +2); Bicarbonate 34.6 mmol/L (22-26); Blood Gas Specimen Type ART; Mode AC; O2 Delivery Device Adult Vent; PEEP 5; PO2 60 mmHG (75-100); RR 14; SITE R Radial; SO2 92 % (95-99); Total Carbon Dioxide 36 mmol/L; pCO2 44.5 mmHg (35-45)
[2025-02-13] MEDS: Furosemide 500 MG in Empty Viaflex 50 mL 1 EACH CONT INF (06:04)
[2025-02-13] MEDS: TITRATION PARAMETER CHANGE 1 EACH IV (06:05)
--- NOTE | 2025-02-13 07:33 | PCM.PN.CARD ---
Subjective Subjective Patient seen and evaluated Objective Data Vital Signs: Vital Signs Temp Pulse Resp BP Pulse Ox O2 Del Method O2 Flow Rate 98.7 F 69 16 116/43 L 93 Mechanical Ventilator 35 02/13/25 05:00 02/13/25 07:15 02/13/25 07:15 02/13/25 07:00 02/13/25 07:15 02/13/25 07:00 02/10/25 21:00 FiO2 30 02/13/25 07:15 Oxygen Flow Rate (L/min) 35 Oxygen Delivery Method Mechanical Ventilator Weight: 239 lb 13.807 oz Body Mass Index (BMI) 39.9 Intake & Output: Intake and Output for Last 24 Hours 02/11/25 02/12/25 02/13/25 23:59 23:59 23:59 Intake Total 2930.32 / 3023.72 1906.07 / 1999.47 1266.15 / 1266.15 Output Total 2300 / 2300 1800 / 1800 350 / 350 Balance 630.32 / 723.72 106.07 / 199.47 916.15 / 916.15 Lab / Micro Data 02/12/25 05:37 02/13/25 03:25 Labs: Laboratory Results - last 24 hr 02/12/25 10:08: POC Glucose 394 H 02/12/25 13:44: POC Glucose 415 H 02/12/25 17:14: POC Glucose 386 H 02/12/25 21:00: POC Glucose 405 H 02/13/25 02:11: POC Glucose 418 H 02/13/25 03:25: Sodium 138, Potassium 3.1 L, Chloride 93 L, Carbon Dioxide 28.2, Anion Gap 17 H, BUN 121 H*, Creatinine 2.50 H, Estim Creat Clear Calc 23.34 L, Est GFR (MDRD) Non-Af 19 L, BUN/Creatinine Ratio 48.4 H, Glucose 450 H, Calcium 8.1 02/13/25 05:02: POC Glucose 389 H ABG Data ABG results: ABG 02/13/25 05:33 Specimen Type ART Sample Site R Radial pH 7.50 H Bicarbonate Actual 34.6 H Total CO2 36 Base Excess 11 H O2 Saturation 92 L O2 % 30.0 ABG pCO2 44.5 ABG pO2 60 L Harvey Test Positive Respiration Rate 14 O2 Delivery Device Adult Vent Vent Mode AC Tidal Volume 450.0 POC PEEP 5 Rhythm Strip Rhythm Strip: Sinus Rhythm Rate: 104 Cardiology Labs/Tests 02/13/25 03:25: Sodium 138, Potassium 3.1 L, Chloride 93 L, Carbon Dioxide 28.2, Anion Gap 17 H, BUN 121 H*, Creatinine 2.50 H, Est GFR (MDRD) Non-Af 19 L, BUN/Creatinine Ratio 48.4 H, Glucose 450 H, Calcium 8.1 02/13/25 05:33: pH 7.50 H, Bicarbonate Actual 34.6 H, Base Excess 11 H, O2 Saturation 92 L, ABG pCO2 44.5, ABG pO2 60 L, Harvey Test Positive Rhythm: EKG: ECHO: Stress Test: Cardiac Cath: PCI: CT Surgery: Holter monitor: EPS: PPM: CXR: Chest CT Scan: Radiography Diagnostic Testing: Radiology Impression Chest X-Ray 02/13/25 05:16 IMPRESSION: Endotracheal tube again appears not significantly changed in position. Right IJ line again seen. Nasogastric tube again noted crossing the diaphragm extending off the inferior edge of the film. Appearance suggests possible mild interval improvement in the bilateral ill-defined perihilar opacities possible mild edema. Appearance of possible small bilateral pleural effusions not significantly changed. Reading Location: [facility] Physical Exam Const General Appearance: intubated and patient mechanically ventilated HEENT normocephalic Eyes PERRL and conjunctivae normal Neck supple and no JVD Resp normal respiratory effort, no retractions and no use of accessory muscles Auscultation: Negative for crackles, rales, rhonchi or wheezes Cardio regular rate, regular rhythm, S1 normal heart sound, S2 normal heart sound and no murmurs GI soft to palpation and non-distended; Negative for hepatosplenomegaly Extremity no clubbing, cyanosis or edema Skin no rashes or lesions noted Neuro Sensorium / Orientation: sedated on vent Psych Appearance: intubated Assessment & Plan Assessment/Plan (1) Acute on chronic combined systolic (congestive) and diastolic (congestive) heart failure: PLAN: Patient's most recent echo on this admission shows that her ejection fraction has dropped from 35% down to 15%. She does have segmental wall motion abnormalities in the inferior and posterior segments the remainder of the LV is globally dilated. Will continue with intravenous Lasix as she appears to be improving and making significant urine. Will resume carvedilol when her blood pressure allows. Overall there is some mild improvement. Will proceed with a course. (2) Secondary pulmonary arterial hypertension: PLAN: Patient's pulmonary pressures estimated 58 mmHg. This is likely secondary to her severe left ventricular systolic dysfunction. PLAN: Plan 1. Try to reinstitute Coreg 3.125-6.25 mg twice daily, when blood pressure is able to tolerate. Will attempt to start this after she has been extubated. Depending on the recovery of her renal function further recommendations will be made. She appears to have some segmental abnormalities noted but at this time there are no plans to pursue invasive approach to therapy.
[2025-02-13] MEDS: Carvedilol 6.25 MG Tablet PO ×2 (08:04→17:42)
[2025-02-13] MEDS: Aspirin E.C. 81 MG Tablet PO (08:04)
[2025-02-13] MEDS: Chlorhexidine 15 ML PO ×2 (08:04→22:31)
[2025-02-13] MEDS: Polyethylene Glycol 3350 17 GM PACKET PO (08:05)
[2025-02-13] MEDS: FLUoxetine 10 MG Capsule PO (08:05)
[2025-02-13] MEDS: Senna/Docusate Sodium 1 Tablet 2 TABLET PO (08:05)
[2025-02-13] MEDS: Isosorbide DN 10 MG Tablet 5 MG PO ×2 (08:05→22:35)
[2025-02-13] MEDS: Pantoprazole Sodium 40 MG in 0.9% Normal Saline (100mL MB+) 100 ML 330 MG IV (08:06)
--- NOTE | 2025-02-13 09:07 | PCM.PN.HOSP ---
Subjective Subjective Intubated, renal function slightly worsened today back up to 2.5, will hold her Lasix drip that she has been on since the and go back to bolus dosing Objective Data Objective Data Vital Signs: Vital Signs Temp Pulse Resp BP Pulse Ox O2 Del Method O2 Flow Rate 98.7 F 68 15 111/39 L 93 Mechanical Ventilator 35 02/13/25 05:00 02/13/25 08:00 02/13/25 08:00 02/13/25 08:00 02/13/25 08:00 02/13/25 08:00 02/10/25 21:00 FiO2 30 02/13/25 08:00 Oxygen Flow Rate (L/min) 35 Oxygen Delivery Method Mechanical Ventilator Weight: 239 lb 13.807 oz Body Mass Index (BMI) 39.9 Intake & Output: Intake and Output for Last 24 Hours 02/12/25 02/13/25 02/14/25 03:59 03:59 03:59 Intake Total 2927.12 / 3020.52 1990.63 / 1998.22 1237.99 / 1237.99 Output Total 2300 / 2300 1800 / 1800 350 / 350 Balance 627.12 / 720.52 190.63 / 198.22 887.99 / 887.99 Lab / Micro Data 02/12/25 05:37 02/13/25 03:25 Labs: Laboratory Results - last 24 hr 02/12/25 10:08: POC Glucose 394 H 02/12/25 13:44: POC Glucose 415 H 02/12/25 17:14: POC Glucose 386 H 02/12/25 21:00: POC Glucose 405 H 02/13/25 02:11: POC Glucose 418 H 02/13/25 03:25: Sodium 138, Potassium 3.1 L, Chloride 93 L, Carbon Dioxide 28.2, Anion Gap 17 H, BUN 121 H*, Creatinine 2.50 H, Estim Creat Clear Calc 23.34 L, Est GFR (MDRD) Non-Af 19 L, BUN/Creatinine Ratio 48.4 H, Glucose 450 H, Calcium 8.1 02/13/25 05:02: POC Glucose 389 H Micro: Microbiology 02/05/25 12:15 Blood Culture (Wb) - Left Wrist Blood Culture - Final No growth in 5 days. 02/05/25 12:04 Blood Culture (Wb) - Right Hand Blood Culture - Final No growth in 5 days. 02/08/25 11:15 Sputum, Induced/Lukens Gram Stain - Final 02/08/25 11:15 Sputum, Induced/Lukens Respiratory Culture - Final Mixed normal respiratory dave. No Streptococcus pneumoniae, beta-hemolytic Streptococcus or Staphylococcus aureus isolated. 02/08/25 00:05 Stool Stool Occult Blood (TREVOR) - Final 02/05/25 11:20 Urine Catheter - Catheter Urine Culture - Final Presumptive E. coli 02/05/25 16:50 Nasal Secretion MRSA (PCR) - Final 02/05/25 16:50 Wound - Leg, Left Skin and Soft Tissue MRSA/MSSA (PCR - Final ABG Data ABG results: ABG 02/13/25 05:33 Specimen Type ART Sample Site R Radial pH 7.50 H Bicarbonate Actual 34.6 H Total CO2 36 Base Excess 11 H O2 Saturation 92 L O2 % 30.0 ABG pCO2 44.5 ABG pO2 60 L Harvey Test Positive Respiration Rate 14 O2 Delivery Device Adult Vent Vent Mode AC Tidal Volume 450.0 POC PEEP 5 Radiography Diagnostic Testing: Radiology Impression Chest X-Ray 02/13/25 05:16 IMPRESSION: Endotracheal tube again appears not significantly changed in position. Right IJ line again seen. Nasogastric tube again noted crossing the diaphragm extending off the inferior edge of the film. Appearance suggests possible mild interval improvement in the bilateral ill-defined perihilar opacities possible mild edema. Appearance of possible small bilateral pleural effusions not significantly changed. Reading Location: [facility] Rhythm Strip Rhythm Strip: Sinus Rhythm Rate: 104 Physical Exam Const General Appearance: intubated and patient mechanically ventilated HEENT normocephalic Eyes PERRL and conjunctivae normal Neck supple and no JVD Resp normal respiratory effort, no retractions and no use of accessory muscles Auscultation: Negative for crackles, rales, rhonchi or wheezes Cardio regular rate, regular rhythm, S1 normal heart sound, S2 normal heart sound and no murmurs GI soft to palpation and non-distended; Negative for hepatosplenomegaly Extremity General Extremity: edema Skin no rashes or lesions noted Neuro Sensorium / Orientation: sedated on vent Psych Appearance: intubated Assessment & Plan Assessment/Plan (1) Acute on chronic combined systolic (congestive) and diastolic (congestive) heart failure: (2) Cellulitis of right anterior lower leg: PLAN: Plan 1. Acute on chronic combined respiratory failure due to heart failure exacerbation: The patient is being admitted in ICU on BiPAP. ABG stat ordered. Discussed with the ED physician to watch for half an hour if she does not improve will need intubation prior to transfer to ICU. Currently on 6 L of oxygen. Lactic acidosis most likely due to pulmonary edema/hypoxia. Patient does not have signs and symptoms of sepsis. The patient not on home oxygen or NIPPV at home 02/06: ABG 7.21/50.7/133 at BiPAP 60% FiO2. Bicarb 22.Bicarb in BMP was 15.7 on 02/05. Probably bicarb and BMP are normal. Today's bicarb is 20. Continue BiPAP intermittently 02/07: The patient has been off BiPAP last night. On 4 to 5 L of oxygen. Gradually improving. 02/08: Patient also neutrophile flow oxygen, looks dyspneic at rest. ABG ordered. 02/09/2025: She was intubated yesterday currently FiO2 of 40% on the ventilator. Continue with Lasix drip 02/10/2025: Slow improvement on her FiO2 down to 45% today. Continue with the Lasix drip 02/11/2025: FiO2 down to 35% anticipate spontaneous breathing trial today by telemetry ICU 02/12/2025: Spontaneous breathing trial and see if we can extubate 2. Acute on chronic combined heart failure: BNP about 30,000. Chest x-ray initially reviewed and shows pulmonary edema, cardiomegaly and blunting of both CP angles. Twelve-lead EKG sinus tachycardia, 104 bpm, QRS 168, QTc 531 ms. LBBB. 02/06: Total urine output 455 mL, 325 since last night. Discussed with the foundry molder. Continue the same regimen 02/07: Urine output is low. On furosemide 20 mg/h. 1 dose of metolazone. Urine output 1050 mL documented yesterday. 300 mL since midnight. Parts Salesman consult reviewed and appreciated 02/08: Even on 20 mg Lasix per hour infusion, patient not putting good urine total 600 mL. Neurologist input needed. 02/09/2025: Continue with Lasix drip, currently intubated 02/13/2025: Renal function worsened today, will transition to bolus dosing of Lasix as she is down about 18 pounds since admission 3. Elevated troponin probably due to increased cardiac demand with suspicion of possible non-STEMI: Patient complained of nondescriptive chest pain. Lesion discussed with foundry molder Dr. Cardona. Recommended enoxaparin 1 dose. Troponin 218, 241. Third troponin pending. EKG as described above. Patient has CAD status post stents, on aspirin and statin. Hold carvedilol because of CHF exacerbation/fluid overload and resume once euvolemic. 4. ELIDA on CKD stage IV: Patient baseline creatinine runs around 2.0 as in January 2025. Admitting BUN/creatinine 58/2.32 therefore ELIDA on CKD stage IV. Parts Salesman consulted. Patient has hyperkalemia, 5.5, high anion gap metabolic acidosis, AG 19, bicarb 15. ABG ordered as mentioned above. Kayexalate and hyperkalemia cocktail ordered. Repeat BMP after 4 hours. Hold losartan metolazone. 02/06: BUN/creatinine 70/2.45. Continue furosemide drip. Parts Salesman on board. 02/07: Today's BMP is pending. 02/08: BUN/creatinine 86/2.6. BMP yesterday was 3.5. 02/09/2025: Appreciate nephrology's assistance, renal function appears to be stable with creatinine 2.48 02/12/2025: Continues to have slow improvement in her creatinine down to 2.37 today, BUN is up to 102 5. Chronic severe anemia: H&H 8.0/27.9%. MCV 75 RDW elevated 17.0. Possible chronic iron deficiency anemia. Monitor CBC. Iron workup ordered for tomorrow a.m.. 02/07: Hemoglobin dropped to 7.2%. It is microcytic with elevated RDW. Stool for occult blood ordered. H&H ordered for in the evening. Patient only on baby aspirin. 02/08: H&H 7.7/28%. Stool for occult blood negative. B12 was normal 635 07/2024. TSH normal. Cortisol 11.2 normal in July 2024. Anemia workup ordered. Reticulocyte panel and LDH ordered 02/09/2025: Iron is 16 with a normal TIBC and iron saturation of 5% with normal ferritin, she likely has a combination of anemia of chronic disease with iron deficiency. She has been transfused today, can likely give IV iron tomorrow 02/10/2025: Hemoglobin today is 8.6, will recheck tomorrow if necessary can give some IV iron 02/11/2025: Continue with a dose of Venofer today 6. DM type II: Last A1c 5.2% in July 2024. Accu-Chek before meals and at bedtime with Humalog sliding scale coverage and hypoglycemia protocol. Most recent glucoses elevated, 259 BMP .135. 02/12/2025: Will continue to monitor and make adjustments as necessary 7. Chronic bilateral fifth metatarsal excision: Superficial ulcer of left lateral leg and contiguous cellulitis: MRSA wound and nasal screen ordered. IV cefazolin given in ED. IV ceftriaxone ordered 02/09/2025: Continue with antibiotics 02/11/2025: Completed antibiotics 8. Past history of CVA: History of remote left lacunar infarct. On aspirin and statin, continued 9. Depression and anxiety: On fluoxetine continue DVT: Heparin Charges/Coding Visit Charges Inpatient E&M: 74312 Subs Hosp L2
[2025-02-13 09:40] LABS: Hemoglobin A1c 7.1 % (<=5.6)
[2025-02-13] MEDS: Insulin Glargine-YFGN 100 UNIT/ML Pen 20 UNIT SC ×2 (10:01→12:46)
--- NOTE | 2025-02-13 10:05 | PCM.PN.TICU ---
Objective Data Objective Data Vital Signs: Vital Signs Last response Temperature 37.1 C 02/13/25 05:00 Temperature Source Axillary 02/13/25 05:00 Pulse Rate 68 02/13/25 08:00 Pulse Strength Weak (1+) 02/12/25 21:57 Respiratory Rate 15 02/13/25 08:00 Respiratory Effort Normal, Non-Labored, Mechanically Ventilated 02/13/25 08:00 Respiratory Depth Normal 02/13/25 08:00 Respiratory Pattern Normal 02/13/25 08:00 Blood Pressure 111/39 L 02/13/25 08:00 Blood Pressure Mean 60 02/13/25 08:00 Blood Pressure Source Monitor 02/13/25 08:00 Blood Pressure Position Semi-Fowlers 02/13/25 08:00 Blood Pressure Location Right Forearm 02/13/25 08:00 Pulse Ox 93 02/13/25 08:00 Oxygen Delivery Method Mechanical Ventilator 02/13/25 08:00 Oxygen Flow Rate (L/min) 35 02/10/25 21:00 Fraction of Inspired Oxygen (FIO2) 30 02/13/25 08:00 I&O: I&O Last 24 Hours 02/12/25 02/12/25 02/13/25 11:59 23:59 11:59 Intake Total 1480.27 / 1998.47 425.8 / 1998.47 1462.15 / 1462.15 Output Total 1100 / 1800 700 / 1800 350 / 350 Balance 380.27 / 199.47 -274.2 / 199.47 1112.15 / 1112.15 I&O: Total Stay 02/05/25 09:43 thru 02/13/25 09:45 Intake Total 67802.45 Output Total 74736 Balance -3496.55 Current Meds Ordered / Administered: Current meds ordered / Administered Generic Name Dose Route Start Last Admin Trade Name Freq PRN Reason Stop Dose Admin Acetaminophen 650 mg 02/05/25 13:41 02/07/25 23:29 Acetaminophen 325 Mg Tablet PO 650 mg Q6H PRN PRN Administration Pain 1-10 Or Fever >100.7 Acetylcysteine 800 mg 02/10/25 11:30 02/13/25 04:10 Acetylcysteine 800 Mg/4 Ml Vial.Neb. INHALATION 800 mg Q8H.RT PARMINDER Administration Albuterol Sulfate 2.5 mg 02/10/25 11:30 02/13/25 04:10 Albuterol 2.5 Mg/3 Ml Vial.Neb. INHALATION 2.5 mg Q8H.RT PARMINDER Administration Aspirin 81 mg 02/06/25 08:00 02/13/25 08:04 Aspirin E.C. 81 Mg Tablet PO 81 mg BREAKFAST PARMINDER Administration Atorvastatin Calcium 40 mg 02/05/25 22:00 02/12/25 20:56 Atorvastatin Calcium 40 Mg Tablet PO 40 mg QHS PARMINDER Administration Calamine/Phenol 1 applic 02/11/25 22:00 02/13/25 05:03 Menthol/Lanolin/Calamine/Znox 113 Gm Tube TOPICAL 1 applic TID PARMINDER Administration Protocol Carvedilol 6.25 mg 02/05/25 19:30 02/13/25 08:04 Carvedilol 6.25 Mg Tablet PO 6.25 mg BIDCM PARMINEDR Administration Protocol Chlorhexidine Gluconate 15 ml 02/10/25 10:00 02/13/25 08:04 Chlorhexidine 15 Ml PO 15 ml BID PARMINDER Administration Chlorhexidine Gluconate 1 each 02/13/25 10:00 02/13/25 05:31 Chlorhexidine Gluc 2% Cloth 1 Each Towelette TOPICAL 1 each DAILY PARMINDER Administration Fentanyl Citrate 50 mcg 02/11/25 11:33 Fentanyl 100 Mcg/2 Ml Ampul IV Q1H PRN PRN CPOT score > 3 Fluoxetine HCl 10 mg 02/06/25 10:00 02/13/25 08:05 Fluoxetine 10 Mg Capsule PO 10 mg DAILY PARMINDER Administration Furosemide 40 mg 02/13/25 18:00 Furosemide 40 Mg/4 Ml Vial IV BIDLX PARMINDER Protocol Guaifenesin 10 ml 02/10/25 14:00 02/13/25 05:03 Guaifenesin 10 Ml Udc (200mg/10ml) NG 10 ml Q8H PARMINDER Administration Heparin Sodium (Porcine) 5,000 unit 02/08/25 14:00 02/13/25 05:03 Heparin Injection (Vial) 5,000 Unit/Ml Vial SC 5,000 unit Q8 PARMINDER Administration Hydralazine HCl 10 mg 02/06/25 08:30 02/13/25 05:03 Hydralazine 10 Mg Tablet PO Not Given TID PARMINDER Protocol Sodium Chloride 250 mls @ 15 mls/hr 02/05/25 16:53 02/11/25 16:00 IV 0 mls/hr .[id number] PRN Infusion Saline Flush Sodium Chloride 250 mls @ 15 mls/hr 02/05/25 16:53 IV .[id number] PRN Additional IVPB Infusion Norepinephrine Bitartrate 8 mg 250 mls @ 9.375 mls/hr 02/08/25 11:30 02/12/25 21:55 / Sodium Chloride CONT INF Not Given .[id number] PARMINDER Protocol 5 MCG/MIN Pantoprazole Sodium 40 mg/ 110 mls @ 330 mls/hr 02/08/25 12:30 02/13/25 08:34 Sodium Chloride IV Infused Q24 PARMINDER Infusion Enteral Nutritional Formula 1,000 mls @ 50 mls/hr 02/09/25 09:30 02/13/25 05:09 Vital High Protein GT 50 mls/hr .Q20H PARMINDER Administration Dexmedetomidine HCl 1,000 mcg/ 250 mls @ 13.6 mls/hr 02/10/25 01:30 02/13/25 07:00 Sodium Chloride CONT INF 0.5 mcg/kg/hr .[id number] PARMINDER 13.6 mls/hr Titration Protocol 0.5 MCG/KG/HR Insulin Glargine 20 unit 02/13/25 10:00 02/13/25 10:01 Insulin Glargine-Yfgn 100 Unit/Ml Pen SC 20 unit BID PARMINDER Administration Insulin Human Lispro 0 unit 02/11/25 18:00 02/13/25 10:01 Insulin Lispro 100 Unit/Ml Insuln.Pen SC 16 units Q4 PARMINDER Administration Protocol Isosorbide Dinitrate 5 mg 02/06/25 10:00 02/13/25 08:05 Isosorbide Dn 10 Mg Tablet PO 5 mg BID PARMINDER Administration Protocol Polyethylene Glycol 17 gm 02/07/25 10:00 02/13/25 08:05 Polyethylene Glycol 3350 17 Gm Packet PO 17 gm DAILY PARMINDER Administration Senna/Docusate Sodium 2 tablet 02/07/25 10:00 02/13/25 08:05 Senna/Docusate Sodium 1 Tablet PO 2 tablet BID PARMINDER Administration Sodium Chloride 10 - 40 ml 02/05/25 16:13 02/13/25 03:26 0.9% Saline Lock 10 Ml Syringe IV 20 ml UD PRN Administration SALINE FLUSH Lab / Micro Data 02/12/25 05:37 02/13/25 03:25 Labs: Laboratory Results - last 24 hr 02/12/25 10:08: POC Glucose 394 H 02/12/25 13:44: POC Glucose 415 H 02/12/25 17:14: POC Glucose 386 H 02/12/25 21:00: POC Glucose 405 H 02/13/25 02:11: POC Glucose 418 H 02/13/25 03:25: Sodium 138, Potassium 3.1 L, Chloride 93 L, Carbon Dioxide 28.2, Anion Gap 17 H, BUN 121 H*, Creatinine 2.50 H, Estim Creat Clear Calc 23.34 L, Est GFR (MDRD) Non-Af 19 L, BUN/Creatinine Ratio 48.4 H, Glucose 450 H, Hemoglobin A1c 7.1 H, Calcium 8.1 02/13/25 05:02: POC Glucose 389 H ABG Data ABG results: ABG 02/13/25 05:33 Specimen Type ART Sample Site R Radial pH 7.50 H Bicarbonate Actual 34.6 H Total CO2 36 Base Excess 11 H O2 Saturation 92 L O2 % 30.0 ABG pCO2 44.5 ABG pO2 60 L Harvey Test Positive Respiration Rate 14 O2 Delivery Device Adult Vent Vent Mode AC Tidal Volume 450.0 POC PEEP 5 Rhythm Strip Rhythm Strip: Sinus Rhythm Rate: 104 Imaging Radiology Impression Chest X-Ray 02/13/25 05:16 IMPRESSION: Endotracheal tube again appears not significantly changed in position. Right IJ line again seen. Nasogastric tube again noted crossing the diaphragm extending off the inferior edge of the film. Appearance suggests possible mild interval improvement in the bilateral ill-defined perihilar opacities possible mild edema. Appearance of possible small bilateral pleural effusions not significantly changed. Reading Location: [facility] Assessment and Plan . Assessment and plan: ASSESSMENT: 1. Acute hypoxic and hypercapnic respiratory failure: Intubated 02/08. On minimal settings: 450/14/35/5. On SBT this am: RR in 20s, VTs in 200-300. She will have to have excellent mechanics given her mental status + airspace disease and habitus. 2. Confusion: suspect sedation effect. Was on fentanyl until 02/10. More awake today. Also uremic. A 3. CHF exac: EF of 15%. Also with moderate MR. Was on lasix gtt but transitioned to bolus dosing. Will need aggressive volume removal to enhance chance at weaning. 4. UTI: 2/2 Ecoli. Completed course of antibxs 5. ELIDA on CKD: Cr stable. On lasix gtt but transitioned to bolus dose lasix. BUN continues to rise. Renal Following/ to decide on possibility of [employer] TE[employer]ER. 6. FEN: TFs 7. Morbid Obesity 8. PX: SQ heparin Red Bustamante MD Critical Care Time: 50 min The entirety of this encounter was done via telemedicine using both audio and video. Consent was unable to be obtained for the telemedicine encounter due to the patient's mental status. e Physical Exam Narrative Physical Exam: Gen: NAD, obese, intubated HEENT: Pupils: =ETT in place Resp:Diminished BS. Mechanically ventilated CV: RRR. No m/g/r Abd: Soft, NT, ND Ext: No c/c. +edema (minimal/improving) Skin: No rashes? Neuro:awakens, follows, better today Subjective Subjective On SBT at current
[2025-02-13 10:21] LABS: Bedside Glucose 413 mg/dL (74-106)
[2025-02-13 10:47] LABS: Base Excess 12 mmol/L (-2 to +2); Blood Gas Specimen Type ART; Mode AC; O2 Delivery Device Adult Vent; PEEP 5; PO2 52 mmHG (75-100); SITE R Radial; SO2 88 % (95-99); Total Carbon Dioxide 38 mmol/L; pCO2 49.2 mmHg (35-45); pH 7.47 (7.35-7.45)
--- NOTE | 2025-02-13 12:12 | PCM.PN.REN ---
Subjective Subjective intubated but awake no pressors cr worse CXR still wet Objective Data Objective Data Vital Signs: Vital Signs Temp Pulse Resp BP Pulse Ox O2 Del Method O2 Flow Rate 98.7 F 70 15 122/53 H 93 Mechanical Ventilator 35 02/13/25 05:00 02/13/25 11:00 02/13/25 11:00 02/13/25 11:00 02/13/25 11:00 02/13/25 11:17 02/10/25 21:00 FiO2 30 02/13/25 11:17 Oxygen Flow Rate (L/min) 35 Oxygen Delivery Method Mechanical Ventilator Weight: 108.8 kg Body Mass Index (BMI) 39.9 Intake & Output: Intake and Output for Last 24 Hours 02/11/25 02/12/25 02/13/25 23:59 23:59 23:59 Intake Total 2930.32 / 3023.72 1906.07 / 1999.47 1572.75 / 1572.75 Output Total 2300 / 2300 1800 / 1800 650 / 650 Balance 630.32 / 723.72 106.07 / 199.47 922.75 / 922.75 Lab / Micro Data 02/12/25 05:37 02/13/25 03:25 Labs: Laboratory Results - last 24 hr 02/12/25 13:44: POC Glucose 415 H 02/12/25 17:14: POC Glucose 386 H 02/12/25 21:00: POC Glucose 405 H 02/13/25 02:11: POC Glucose 418 H 02/13/25 03:25: Sodium 138, Potassium 3.1 L, Chloride 93 L, Carbon Dioxide 28.2, Anion Gap 17 H, BUN 121 H*, Creatinine 2.50 H, Estim Creat Clear Calc 23.34 L, Est GFR (MDRD) Non-Af 19 L, BUN/Creatinine Ratio 48.4 H, Glucose 450 H, Hemoglobin A1c 7.1 H, Calcium 8.1 02/13/25 05:02: POC Glucose 389 H 02/13/25 10:00: POC Glucose 413 H Micro: Microbiology 02/05/25 12:15 Blood Culture (Wb) - Left Wrist Blood Culture - Final No growth in 5 days. 02/05/25 12:04 Blood Culture (Wb) - Right Hand Blood Culture - Final No growth in 5 days. 02/08/25 11:15 Sputum, Induced/Lukens Gram Stain - Final 02/08/25 11:15 Sputum, Induced/Lukens Respiratory Culture - Final Mixed normal respiratory dave. No Streptococcus pneumoniae, beta-hemolytic Streptococcus or Staphylococcus aureus isolated. 02/08/25 00:05 Stool Stool Occult Blood (TREVOR) - Final 02/05/25 11:20 Urine Catheter - Catheter Urine Culture - Final Presumptive E. coli 02/05/25 16:50 Nasal Secretion MRSA (PCR) - Final 02/05/25 16:50 Wound - Leg, Left Skin and Soft Tissue MRSA/MSSA (PCR - Final ABG Data ABG results: ABG 02/13/25 02/13/25 05:33 10:44 Specimen Type ART ART Sample Site R Radial R Radial pH 7.50 H 7.47 H Bicarbonate Actual 34.6 H 36.0 H Total CO2 36 38 Base Excess 11 H 12 H O2 Saturation 92 L 88 L O2 % 30.0 30.0 ABG pCO2 44.5 49.2 H ABG pO2 60 L 52 L Harvey Test Positive Respiration Rate 14 O2 Delivery Device Adult Vent Adult Vent Vent Mode AC AC Tidal Volume 450.0 POC PEEP 5 5 Radiography Diagnostic Testing: Radiology Impression Chest X-Ray 02/13/25 05:16 IMPRESSION: Endotracheal tube again appears not significantly changed in position. Right IJ line again seen. Nasogastric tube again noted crossing the diaphragm extending off the inferior edge of the film. Appearance suggests possible mild interval improvement in the bilateral ill-defined perihilar opacities possible mild edema. Appearance of possible small bilateral pleural effusions not significantly changed. Reading Location: [facility] Rhythm Strip Rhythm Strip: Sinus Rhythm Rate: 104 Physical Exam Narrative On ventilator support s1s2 no murmurs Diminished breath sounds abdomen soft Edema bilateral legs morillo + clear yellow urine in bag Assessment & Plan Assessment/Plan (1) ELIDA (acute kidney injury): (2) Chronic kidney disease (CKD): QUALIFIERS: Chronic kidney disease stage: stage 4 (GFR 15-29) Qualified Code(s): N18.4 - Chronic kidney disease, stage 4 (severe) PLAN: Plan Impression/Plan: Patient is a 74-year-old female with past history of type 2 diabetes mellitus, hypertension, CAD, ischemic cardiomyopathy with HFrEF (EF 15%), pulmonary hypertension, stroke, and hyperlipidemia. Patient presents to the hospital on 02/05/2025 with 1 week history of progressively worsening dyspnea and lower extremity edema. Patient was admitted to the hospital for treatment of acute hypoxic respiratory failure requiring NIV. Nephrology is following for ELIDA on CKD. -Hypervolemia acute kidney injury superimposed on CKD stage IV. Baseline SCr 1.80 to 2.00 mg/dL prior to this admission. Suspect ELIDA is secondary to cardiorenal syndrome. CXR is still wet overall 18 lbs down since lasix drip started but still overloaded BUN and cr worse will likely need dialysis for fluid removal called and spoke to over phone. he would like to proceed with dialysis for fluid removal dw Dr Cardona will have a HD catheter placed, tunneled if possible since she will likely need dialysis for several days to weeks surgery to be consulted
[2025-02-13] MEDS: hydrALAZINE 10 MG Tablet PO (12:47)
[2025-02-13 12:50] LABS: Bedside Glucose 410 mg/dL (74-106)
[2025-02-13 15:28] LABS: Bedside Glucose 355 mg/dL (74-106)
--- NOTE | 2025-02-13 16:05 | EX.PCM.CON.S ---
Assessment & Plan Assessment/Plan (1) ELIDA (acute kidney injury): PLAN: I have been consulted in conjunction with Dr. Brown. He has independently evaluated this patient. Patient is a 74 y/o who presented with worsening CHF. Patient remains intubated, however off of sedation. Her creatinine is worsening and BUN remains significantly elevated. Nephrology is requesting a tunneled dialysis catheter placement to start patient on dialysis. Dr. Brown will plan to perform a right possible left chest tunneled dialysis placement. Procedure details, risks and benefits have been explained to the patient, patient's and son in the room. Patient's and son both agree to proceed with the proposed procedure. Patient's signed consent in front of witnesses, whom all agree to proceed. Patient's and son have had the opportunity to ask and have questions answered. Patient will proceed with the proposed procedure tomorrow around 12:30. Thank you for allowing us to participate in this patient's care. HPI Consult Data Date of Consult: 02/13/25 HPI Narrative Reason for Consultation: Hemodialysis access HPI Narrative: PRICILA WALDROP, is a 74 F who presents with worsening shortness of breath x 1 week. Patient was admitted to the ICU intubated. Patient was placed on Lasix for CHF. She continues to be intubated, however she is off of sedation. Patient's BUN continues to be elevated and her creatinine is elevated also. Nephrology has evaluated the patient and is recommending the patient start on dialysis. Patient denies having previous catheter placed other than this current midline. Patient's and son were present in the room and concur that the patient as never been on dialysis previously. [facility]LY [facility] Medical History Essential hypertension Morbid obesity with BMI of 40.0-44.9, adult Hypothermia Cardiomyopathy Chronic anemia Hypoxia History of diabetes mellitus Acute metabolic encephalopathy due to hypoglycemia History of stroke Chronic kidney disease Altered level of consciousness Non-pressure chronic ulcer of other 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 Chronic kidney disease (CKD) Type 2 diabetes mellitus with hypoglycemia Diabetes mellitus with diabetic polyneuropathy Type 2 diabetes mellitus with foot ulcer Diabetes mellitus with diabetic polyneuropathy Dyspnea Ischemic cardiomyopathy History of CVA (cerebrovascular accident) Atherosclerosis of coronary artery without angina pectoris Type 2 diabetes mellitus Secondary pulmonary arterial hypertension Chronic combined systolic and diastolic CHF (congestive heart failure) Essential hypertension Obesity Chronic kidney disease (CKD) GI bleed (01/2022) Anemia Diabetes mellitus type 2 in obese Hyperlipidemia Home Medications ?Medication ?Instructions ?Recorded ?Last Taken ?Type atorvastatin 40 mg tablet 40 mg PO QHS CHOLESTEROL 02/22/22 Unknown History aspirin 81 mg tablet,delayed 81 mg PO DAILY HEART HEALTH 06/03/22 Unknown History release (Adult Aspirin Regimen) dapagliflozin propanediol 10 mg 10 mg PO DAILY DIABETES #90 tabs 07/12/24 Unknown Rx tablet (Farxiga) blood sugar diagnostic (Accu-Chek 07/13/24 Unknown History Alvina Plus test strips) fluoxetine 10 mg capsule 10 mg PO DAILY DEPERSSION 07/13/24 Unknown History insulin lispro 100 unit/mL 15 unit subcut ACHS DM 07/13/24 Unknown History subcutaneous pen (Humalog KwikPen (U-100) Insulin) amlodipine 5 mg tablet 5 mg PO DAILY HEART #0 tabs 07/18/24 Unknown Rx vitamin B complex (Complex B-100 1 tab PO DAILY HEALTH MAINTENENCE 08/19/24 Unknown History tablet,extended release) carvedilol 12.5 mg tablet 12.5 mg PO BIDCM #30 tabs 08/22/24 Unknown Rx losartan 50 mg tablet 50 mg PO DAILY #30 tabs 08/22/24 Unknown Rx furosemide 40 mg tablet 40 mg PO BID #60 tabs 01/30/25 Unknown Rx metolazone 5 mg tablet 5 mg PO DAILY HE 01/30/25 Unknown History acetaminophen 325 mg tablet 650 mg PO Q6H PRN Pain 1-10 Or 02/05/25 Unknown History Fever >100.7 Allergy/AdvReac Type Severity Reaction Status Date / Time No Known Allergies Allergy Verified 02/05/25 09:50 Family History Father Diabetes Heart disease CAD (coronary artery disease) Mother Heart disease Surgical History History of coronary artery stent placement (09/2013) H/O vein stripping Status post angioplasty with stent Social History household members: family Smoking Status: Former smoker how long ago did patient quit smokin years ago alcohol intake: never substance use type: does not use caffeine: Yes ROS Review of Systems ROS Unobtainable: due to endotracheal tube Physical Exam Const alert and no apparent distress General Appearance: comfortable HEENT normocephalic and head/scalp atraumatic Eyes PERRL Neck full ROM Resp normal respiratory effort and clear to auscultation bilaterally Cardio regular rate and regular rhythm GI normal to inspection, nondistended, normoactive bowel sounds no CVA tenderness Back/Spine no CVA tenderness Extremity General Extremity: edema bilateral lower extremity Skin Rashes: no rashes Neuro no focal motor deficits and no sensory deficits noted Psych cooperative Lab / Micro Data 02/12/25 05:37 02/13/25 03:25 Labs: Laboratory Results - last 24 hr 02/12/25 17:14: POC Glucose 386 H 02/12/25 21:00: POC Glucose 405 H 02/13/25 02:11: POC Glucose 418 H 02/13/25 03:25: Sodium 138, Potassium 3.1 L, Chloride 93 L, Carbon Dioxide 28.2, Anion Gap 17 H, BUN 121 H*, Creatinine 2.50 H, Estim Creat Clear Calc 23.34 L, Est GFR (MDRD) Non-Af 19 L, BUN/Creatinine Ratio 48.4 H, Glucose 450 H, Hemoglobin A1c 7.1 H, Calcium 8.1 02/13/25 05:02: POC Glucose 389 H 02/13/25 10:00: POC Glucose 413 H 02/13/25 12:30: POC Glucose 410 H 02/13/25 14:52: POC Glucose 355 H ABG Data ABG results: ABG 02/13/25 02/13/25 05:33 10:44 Specimen Type ART ART Sample Site R Radial R Radial pH 7.50 H 7.47 H Bicarbonate Actual 34.6 H 36.0 H Total CO2 36 38 Base Excess 11 H 12 H O2 Saturation 92 L 88 L O2 % 30.0 30.0 ABG pCO2 44.5 49.2 H ABG pO2 60 L 52 L Harvey Test Positive Respiration Rate 14 O2 Delivery Device Adult Vent Adult Vent Vent Mode AC AC Tidal Volume 450.0 POC PEEP 5 5 Rhythm Strip Rhythm Strip: Sinus Rhythm Rate: 104 Imaging Radiology Impression Chest X-Ray 02/13/25 05:16 IMPRESSION: Endotracheal tube again appears not significantly changed in position. Right IJ line again seen. Nasogastric tube again noted crossing the diaphragm extending off the inferior edge of the film. Appearance suggests possible mild interval improvement in the bilateral ill-defined perihilar opacities possible mild edema. Appearance of possible small bilateral pleural effusions not significantly changed. Reading Location: [id number] Charges/Coding Visit Charges Inpatient E&M: 60136 Init Hosp L2
[2025-02-13] MEDS: Furosemide 40 MG/4 ML Vial IV (17:41)
[2025-02-13 18:01] LABS: Bedside Glucose 313 mg/dL (74-106)
[2025-02-13] MEDS: Insulin Glargine-YFGN 100 UNIT/ML Pen 40 UNIT SC (22:34)
[2025-02-13] MEDS: Atorvastatin Calcium 40 MG Tablet PO (22:34)
[2025-02-13 23:33] LABS: Bedside Glucose 341 mg/dL (74-106)
[2025-02-14] VITALS (46 sets, daily range): BP systolic 105–190; BP diastolic 42–91; PULSE 52–65; RESP 13–98; TEMP 35.8–37.2; O2SAT 14–98; BMI 39.7; BMI 39.8; BMI 39.3
[2025-02-14] MEDS: dexMEDEtomidine 1,000 MCG in 0.9% Normal Saline (250mL Bag) 240 ML 27.2 MCG CONT INF ×3 (01:31→19:53)
[2025-02-14] MEDS: Insulin Lispro 100 UNIT/ML INSULN.PEN SC ×5 (01:31→21:41)
[2025-02-14 01:52] LABS: Bedside Glucose 289 mg/dL (74-106)
--- NOTE | 2025-02-14 03:10 | RAD_ITS ---
PROCEDURE: CHEST 1 VIEW (PORTABLE) 02/14/2025 REASON FOR EXAM: ETT VALIDATION TECHNIQUE: Frontal view of the chest. COMPARISON: 02/13/2025 at 05:21 FINDINGS: The right IJ line is no longer definitely identified, clinically correlate. The endotracheal tube is again seen not significantly changed in position. Nasogastric tube again noted crossing the diaphragm extending off the inferior edge of the film. Bilateral ill-defined perihilar opacities and possible small bilateral pleural effusions not significantly changed. RAD/Chest 1 View (Portable) IMPRESSION: The right IJ line is no longer definitely identified, clinically correlate. Otherwise no significant interval change in appearance of the chest. Reading Location: [id number]
[2025-02-14 04:03] LABS: Allen Test Positive; Base Excess 12 mmol/L (-2 to +2); Bicarbonate 35.2 mmol/L (22-26); Blood Gas Specimen Type ART; Mode AC; O2 Delivery Device Adult Vent; PEEP 5; PO2 66 mmHG (75-100); RR 14; SITE L Radial; SO2 94 % (95-99); Total Carbon Dioxide 37 mmol/L; pCO2 44.3 mmHg (35-45); pH 7.51 (7.35-7.45)
[2025-02-14] MEDS: guaiFENesin 10 ML UDC (200MG/10ML) NG ×3 (05:04→21:35)
[2025-02-14] MEDS: hydrALAZINE 10 MG Tablet PO ×3 (05:04→21:44)
[2025-02-14] MEDS: Menthol/Lanolin/Calamine/Znox 113 GM Tube 1 APPLIC TOPICAL ×3 (05:04→21:45)
[2025-02-14 06:03] LABS: Absolute Neutrophil Count 8.8 X10^3/uL (2.0-7.7); Basophil# 0.06 X10^3/uL; Basophil% 0.5 % (0-1); Eosinophil# 0.22 X10^3/uL; Eosinophils% 1.9 % (0-5); Hematocrit 27.7 % (37-47); Hemoglobin 8.1 g/dL (12.0-15.0); Lymphocyte % 8.8 % (19-41); Mean Corp Hgb Conc 29.2 g/dL (32-36); Mean Corpuscular Hgb 21.3 pg (27.0-32.0); Mean Corpuscular Volume 72.9 fL (81-99); Mean Platelet Vol. 10.4 fl (6.2-12.0); Monocyte# 1.18 X10^3/uL; Monocyte% 10.4 % (0-10); NRBC Flagged by Analyzer 0 % (0-5); Neutrophil # 8.79 X10^3/uL (2.7-7.7); Neutrophil % 77.9 % (47-70); Platelet Count 249 K/mm3 (150-450); RBC Distribution Width CV 18.5 % (11.6-14.6); RBC Distribution Width SD 46.8 fl (35.1-43.9); White Blood Count 11.3 K/mm3 (4.4-11.0)
[2025-02-14 06:07] LABS: Bedside Glucose 219 mg/dL (74-106)
[2025-02-14] MEDS: CHLORHEXIDINE GLUC 2% CLOTH 1 EACH TOWELETTE TOPICAL (06:21)
[2025-02-14 06:47] LABS: Anion Gap 17 (5-15); BUN 130 mg/dL (4-19); BUN/Creat Ratio 52.2 RATIO (10-20); Calcium,Total 8.5 mg/dL (7.6-11.0); Carbon Dioxide 28.9 mmol/L (21.0-32.0); Chloride 93 mmol/L (98-108); Creatinine, Serum 2.49 mg/dL (0.70-1.20); EST Glomerular Filtration Rate 20 (>60); Estimated Creatinine Clearance 23.53 ml/min (50-250); Glucose 255 mg/dL (70-99); Potassium 3.3 mmol/L (3.3-5.1); Sodium Level 140 mmol/L (133-145)
[2025-02-14] MEDS: Albuterol 2.5 MG/3 ML VIAL.NEB. INHALATION (06:58)
[2025-02-14] MEDS: Acetylcysteine 800 MG/4 ML VIAL.NEB. INHALATION (06:58)
[2025-02-14] MEDS: Pantoprazole Sodium 40 MG in 0.9% Normal Saline (100mL MB+) 100 ML 330 MG IV (07:28)
[2025-02-14] MEDS: Carvedilol 6.25 MG Tablet PO ×2 (07:30→17:09)
[2025-02-14] MEDS: Isosorbide DN 10 MG Tablet 5 MG PO ×2 (07:30→21:46)
[2025-02-14] MEDS: Senna/Docusate Sodium 1 Tablet 2 TABLET PO ×2 (07:30→21:47)
--- NOTE | 2025-02-14 07:37 | PN.SURG_ITS ---
Subjective Subjective Patient resting comfortably in bed. No new events overnight. Central line was removed yesterday. Objective Data Objective Data Vital Signs: Vital Signs Temp Pulse Resp BP Pulse Ox O2 Del Method O2 Flow Rate 98.9 F 61 16 130/56 H 95 Mechanical Ventilator 35 02/14/25 04:00 02/14/25 07:00 02/14/25 07:00 02/14/25 07:00 02/14/25 07:00 02/14/25 07:00 02/10/25 21:00 FiO2 30 02/14/25 07:00 Oxygen Flow Rate (L/min) 35 Oxygen Delivery Method Mechanical Ventilator Weight: 238 lb 15.697 oz Body Mass Index (BMI) 39.7 Intake & Output: Intake and Output for Last 24 Hours 02/12/25 02/13/25 02/14/25 23:59 23:59 23:59 Intake Total 1906.07 / 1998.47 1928.35 / 2884.45 1138.36 / 1138.36 Output Total 1800 / 1800 1175 / 1175 300 / 300 Balance 106.07 / 199.47 753.35 / 1709.45 838.36 / 838.36 Lab / Micro Data 02/14/25 05:40 02/14/25 05:40 Labs: Laboratory Results - last 24 hr 02/13/25 03:25: Hemoglobin A1c 7.1 H 02/13/25 10:00: POC Glucose 413 H 02/13/25 12:30: POC Glucose 410 H 02/13/25 14:52: POC Glucose 355 H 02/13/25 17:40: POC Glucose 313 H 02/13/25 22:29: POC Glucose 341 H 02/14/25 01:29: POC Glucose 289 H 02/14/25 05:40: WBC 11.3 H, RBC 3.80 L, Hgb 8.1 L, Hct 27.7 L, MCV 72.9 L, MCH 21.3 L, MCHC 29.2 L, RDW Std Deviation 46.8 H, RDW Coeff of Bulmaro 18.5 H, Plt Count 249, MPV 10.4, Immature Gran % (Auto) 0.500, Neut % (Auto) 77.9 H, Lymph % (Auto) 8.8 L, [place] % (Auto) 10.4 H, Eos % (Auto) 1.9, Baso % (Auto) 0.5, A bsolute Neuts (auto) 8.8 H, Absolute Lymphs (auto) 1.00, Nucleated RBC % 0, Sodium 140, Potassium 3.3, Chloride 93 L, Carbon Dioxide 28.9, Anion Gap 17 H, B UN 130 H*, Creatinine 2.49 H, Estim Creat Clear Calc 23.53 L, Est GFR (MDRD) Non-Af 20 L, BUN/Creatinine Ratio 52.2 H, Glucose 255 H, Calcium 8.5 02/14/25 05:45: POC Glucose 219 H Micro: Microbiology 02/05/25 12:15 Blood Culture (Wb) - Left Wrist Blood Culture - Final No growth in 5 days. 02/05/25 12:04 Blood Culture (Wb) - Right Hand Blood Culture - Final No growth in 5 days. 02/08/25 11:15 Sputum, Induced/Lukens Gram Stain - Final 02/08/25 11:15 Sputum, Induced/Lukens Respiratory Culture - Final Mixed normal respiratory dave. No Streptococcus pneumoniae, beta-hemolytic Streptococcus or Staphylococcus aureus isolated. 02/08/25 00:05 Stool Stool Occult Blood (TREVOR) - Final 02/05/25 11:20 Urine Catheter - Catheter Urine Culture - Final Presumptive E. coli 02/05/25 16:50 Nasal Secretion MRSA (PCR) - Final 02/05/25 16:50 Wound - Leg, Left Skin and Soft Tissue MRSA/MSSA (PCR - Final ABG Data ABG results: ABG 02/13/25 02/14/25 10:44 04:00 Specimen Type ART ART Sample Site R Radial L Radial pH 7.47 H 7.51 H Bicarbonate Actual 36.0 H 35.2 H Total CO2 38 37 Base Excess 12 H 12 H O2 Saturation 88 L 94 L O2 % 30.0 30.0 ABG pCO2 49.2 H 44.3 ABG pO2 52 L 66 L Harvey Test Positive Respiration Rate 14 O2 Delivery Device Adult Vent Adult Vent Vent Mode AC AC Tidal Volume 450.0 POC PEEP 5 5 Radiography Diagnostic Testing: Radiology Impression Chest X-Ray 02/14/25 03:10 IMPRESSION: The right IJ line is no longer definitely identified, clinically correlate. Otherwise no significant interval change in appearance of the chest. Reading Location: [facility] Rhythm Strip Rhythm Strip: Sinus Rhythm Rate: 104 Physical Exam Neck Neck Narrative: Right neck- op-site in place where previous central line catheter was located Assessment & Plan Assessment/Plan (1) ELIDA (acute kidney injury): PLAN: I am following this patient in conjunction with Dr. Brown. Planned right possible left chest tunneled dialysis catheter placement today approximately 12:30 Consent signed yesterday by patient's Pre-op antibiotic ordered We will continue to monitor this patient Charges/Coding Visit Charges Inpatient E&M: 02855 Subs Hosp L1 (pre-op)
--- NOTE | 2025-02-14 09:33 | PN.HOSP_ITS ---
Subjective Subjective Will change her to peds vitamin her blood sugars more manageable, plan for tunneled dialysis catheter today Objective Data Objective Data Vital Signs: Vital Signs Temp Pulse Resp BP Pulse Ox O2 Del Method O2 Flow Rate 97.9 F 61 14 112/42 L 93 Mechanical Ventilator 35 02/14/25 08:00 02/14/25 09:20 02/14/25 09:20 02/14/25 09:00 02/14/25 09:20 02/14/25 09:00 02/10/25 21:00 FiO2 30 02/14/25 09:20 Oxygen Flow Rate (L/min) 35 Oxygen Delivery Method Mechanical Ventilator Weight: 238 lb 15.697 oz Body Mass Index (BMI) 39.7 Intake & Output: Intake and Output for Last 24 Hours 02/13/25 02/14/25 02/15/25 03:59 03:59 03:59 Intake Total 1989.63 / 1997.22 2739.75 / 2766.95 218.8 / 218.8 Output Total 1800 / 1800 1175 / 1175 300 / 300 Balance 190.63 / 198.22 1564.75 / 1591.95 -81.2 / -81.2 Lab / Micro Data 02/14/25 05:40 02/14/25 05:40 Labs: Laboratory Results - last 24 hr 02/13/25 03:25: Hemoglobin A1c 7.1 H 02/13/25 10:00: POC Glucose 413 H 02/13/25 12:30: POC Glucose 410 H 02/13/25 14:52: POC Glucose 355 H 02/13/25 17:40: POC Glucose 313 H 02/13/25 22:29: POC Glucose 341 H 02/14/25 01:29: POC Glucose 289 H 02/14/25 05:40: WBC 11.3 H, RBC 3.80 L, Hgb 8.1 L, Hct 27.7 L, MCV 72.9 L, MCH 21.3 L, MCHC 29.2 L, RDW Std Deviation 46.8 H, RDW Coeff of Bulmaro 18.5 H, Plt Count 249, MPV 10.4, Immature Gran % (Auto) 0.500, Neut % (Auto) 77.9 H, Lymph % (Auto) 8.8 L, [place] % (Auto) 10.4 H, Eos % (Auto) 1.9, Baso % (Auto) 0.5, A bsolute Neuts (auto) 8.8 H, Absolute Lymphs (auto) 1.00, Nucleated RBC % 0, Sodium 140, Potassium 3.3, Chloride 93 L, Carbon Dioxide 28.9, Anion Gap 17 H, B UN 130 H*, Creatinine 2.49 H, Estim Creat Clear Calc 23.53 L, Est GFR (MDRD) Non-Af 20 L, BUN/Creatinine Ratio 52.2 H, Glucose 255 H, Calcium 8.5 02/14/25 05:45: POC Glucose 219 H Micro: Microbiology 02/05/25 12:15 Blood Culture (Wb) - Left Wrist Blood Culture - Final No growth in 5 days. 02/05/25 12:04 Blood Culture (Wb) - Right Hand Blood Culture - Final No growth in 5 days. 02/08/25 11:15 Sputum, Induced/Lukens Gram Stain - Final 02/08/25 11:15 Sputum, Induced/[place]ukens Respiratory Culture - Final Mixed normal respiratory dave. No Streptococcus pneumoniae, beta-hemolytic Streptococcus or Staphylococcus aureus isolated. 02/08/25 00:05 Stool Stool Occult Blood (TREVOR) - Final 02/05/25 11:20 Urine Catheter - Catheter Urine Culture - Final Presumptive E. coli 02/05/25 16:50 Nasal Secretion MRSA (PCR) - Final 02/05/25 16:50 Wound - Leg, Left Skin and Soft Tissue MRSA/MSSA (PCR - Final ABG Data ABG results: ABG 02/13/25 02/14/25 10:44 04:00 Specimen Type ART ART Sample Site R Radial L Radial pH 7.47 H 7.51 H Bicarbonate Actual 36.0 H 35.2 H Total CO2 38 37 Base Excess 12 H 12 H O2 Saturation 88 L 94 L O2 % 30.0 30.0 ABG pCO2 49.2 H 44.3 ABG pO2 52 L 66 L Harvey Test Positive Respiration Rate 14 O2 Delivery Device Adult Vent Adult Vent Vent Mode AC AC Tidal Volume 450.0 POC PEEP 5 5 Radiography Diagnostic Testing: Radiology Impression Chest X-Ray 02/14/25 03:10 IMPRESSION: The right IJ line is no longer definitely identified, clinically correlate. Otherwise no significant interval change in appearance of the chest. Reading Location: [facility] Rhythm Strip Rhythm Strip: Sinus Rhythm Rate: 104 Physical Exam Const General Appearance: intubated and patient mechanically ventilated HEENT normocephalic Eyes PERRL and conjunctivae normal Neck supple and no JVD Resp normal respiratory effort, no retractions and no use of accessory muscles Auscultation: Negative for crackles, rales, rhonchi or wheezes Cardio regular rate, regular rhythm, S1 normal heart sound, S2 normal heart sound and no murmurs GI soft to palpation and non-distended; Negative for hepatosplenomegaly Extremity General Extremity: edema Skin no rashes or lesions noted Neuro Sensorium / Orientation: sedated on vent Psych Appearance: intubated Assessment & Plan Assessment/Plan (1) Acute on chronic combined systolic (congestive) and diastolic (congestive) heart failure: (2) Cellulitis of right anterior lower leg: PLAN: Plan 1. Acute on chronic combined respiratory failure due to heart failure exacerbation: The patient is being admitted in ICU on BiPAP. ABG stat ordered. Discussed with the ED physician to watch for half an hour if she does not improve will need intubation prior to transfer to ICU. Currently on 6 L of oxygen. Lactic acidosis most likely due to pulmonary edema/hypoxia. Patient does not have signs and symptoms of sepsis. The patient not on home oxygen or NIPPV at home 02/06: ABG 7.21/50.7/133 at BiPAP 60% FiO2. Bicarb 22.Bicarb in BMP was 15.7 on 02/05. Probably bicarb and BMP are normal. Today's bicarb is 20. Continue BiPAP intermittently 02/07: The patient has been off BiPAP last night. On 4 to 5 L of oxygen. Gradually improving. 02/08: Patient also neutrophile flow oxygen, looks dyspneic at rest. ABG ordered. 02/09/2025: She was intubated yesterday currently FiO2 of 40% on the ventilator. Continue with Lasix drip 02/10/2025: Slow improvement on her FiO2 down to 45% today. Continue with the Lasix drip 02/11/2025: FiO2 down to 35% anticipate spontaneous breathing trial today by telemetry ICU 02/12/2025: Spontaneous breathing trial and see if we can extubate 02/14/2025: Plan for tunneled dialysis catheter today as Lasix is not achieving the level of diuresis necessary for extubation 2. Acute on chronic combined heart failure: BNP about 30,000. Chest x-ray initially reviewed and shows pulmonary edema, cardiomegaly and blunting of both CP angles. Twelve-lead EKG sinus tachycardia, 104 bpm, QRS 168, QTc 531 ms. LBBB. 02/06: Total urine output 455 mL, 325 since last night. Discussed with the front desk administrator. Continue the same regimen 02/07: Urine output is low. On furosemide 20 mg/h. 1 dose of metolazone. Urine output 1050 mL documented yesterday. 300 mL since midnight. Alternative Education Teacher consult reviewed and appreciated 02/08: Even on 20 mg Lasix per hour infusion, patient not putting good urine total 600 mL. Neurologist input needed. 02/09/2025: Continue with Lasix drip, currently intubated 02/13/2025: Renal function worsened today, will transition to bolus dosing of Lasix as she is down about 18 pounds since admission 3. Elevated troponin probably due to increased cardiac demand with suspicion of possible non-STEMI: Patient complained of nondescriptive chest pain. Lesion discussed with front desk administrator Dr. Cardona. Recommended enoxaparin 1 dose. Troponin 218, 241. Third troponin pending. EKG as described above. Patient has CAD status post stents, on aspirin and statin. Hold carvedilol because of CHF exacerbation/fluid overload and resume once euvolemic. 4. ELIDA on CKD stage IV: Patient baseline creatinine runs around 2.0 as in January 2025. Admitting BUN/creatinine 58/2.32 therefore ELIDA on CKD stage IV. Alternative Education Teacher consulted. Patient has hyperkalemia, 5.5, high anion gap metabolic acidosis, AG 19, bicarb 15. ABG ordered as mentioned above. Kayexalate and hyperkalemia cocktail ordered. Repeat BMP after 4 hours. Hold losartan metolazone. 02/06: BUN/creatinine 70/2.45. Continue furosemide drip. Alternative Education Teacher on board. 02/07: Today's BMP is pending. 02/08: BUN/creatinine 86/2.6. BMP yesterday was 3.5. 02/09/2025: Appreciate nephrology's assistance, renal function appears to be stable with creatinine 2.48 02/12/2025: Continues to have slow improvement in her creatinine down to 2.37 today, BUN is up to 102 02/14/2025: Renal function is worse at 2.49 than it was in the , BUN continues to climb 5. Chronic severe anemia: H&H 8.0/27.9%. MCV 75 RDW elevated 17.0. Possible chronic iron deficiency anemia. Monitor CBC. Iron workup ordered for tomorrow a.m.. 02/07: Hemoglobin dropped to 7.2%. It is microcytic with elevated RDW. Stool for occult blood ordered. H&H ordered for in the evening. Patient only on baby aspirin. 02/08: H&H 7.7/28%. Stool for occult blood negative. B12 was normal 635 07/2024. TSH normal. Cortisol 11.2 normal in July 2024. Anemia workup ordered. Reticulocyte panel and LDH ordered 02/09/2025: Iron is 16 with a normal TIBC and iron saturation of 5% with normal ferritin, she likely has a combination of anemia of chronic disease with iron deficiency. She has been transfused today, can likely give IV iron tomorrow 02/10/2025: Hemoglobin today is 8.6, will recheck tomorrow if necessary can give some IV iron 02/11/2025: Continue with a dose of Venofer today 6. DM type II: Last A1c 5.2% in July 2024. Accu-Chek before meals and at bedtime with Humalog sliding scale coverage and hypoglycemia protocol. Most recent glucoses elevated, 259 BMP 51.135. 02/12/2025: Will continue to monitor and make adjustments as necessary 7. Chronic bilateral fifth metatarsal excision: Superficial ulcer of left lateral leg and contiguous cellulitis: MRSA wound and nasal screen ordered. IV cefazolin given in ED. IV ceftriaxone ordered 02/09/2025: Continue with antibiotics 02/11/2025: Completed antibiotics 8. Past history of CVA: History of remote left lacunar infarct. On aspirin and statin, continued 9. Depression and anxiety: On fluoxetine continue DVT: Heparin Charges/Coding Visit Charges Inpatient E&M: 26241 Subs Hosp L2
[2025-02-14] MEDS: Insulin Glargine-YFGN 100 UNIT/ML Pen 45 UNIT SC ×2 (10:09→21:43)
[2025-02-14] MEDS: Chlorhexidine 15 ML PO ×2 (10:09→21:45)
[2025-02-14] MEDS: FLUoxetine 10 MG Capsule PO (10:11)
[2025-02-14] MEDS: Furosemide 40 MG/4 ML Vial IV ×2 (10:11→17:10)
[2025-02-14 10:34] LABS: Bedside Glucose 166 mg/dL (74-106)
--- NOTE | 2025-02-14 11:26 | PCM.PN.TICU ---
Objective Data Objective Data Vital Signs: Vital Signs Last response Temperature 36.6 C 02/14/25 08:00 Temperature Source Temporal 02/14/25 08:00 Pulse Rate 61 02/14/25 11:00 Pulse Strength Weak (1+) 02/14/25 09:29 Respiratory Rate 14 02/14/25 11:00 Respiratory Effort Mechanically Ventilated 02/14/25 07:44 Respiratory Depth Normal 02/14/25 07:44 Respiratory Pattern Normal 02/14/25 10:52 Blood Pressure 139/56 H 02/14/25 11:00 Blood Pressure Mean 83 02/14/25 11:00 Blood Pressure Source Monitor 02/14/25 11:00 Blood Pressure Position Supine 02/14/25 11:00 Blood Pressure Location Right Forearm 02/14/25 11:00 Pulse Ox 94 02/14/25 11:00 Oxygen Delivery Method Mechanical Ventilator 02/14/25 11:00 Oxygen Flow Rate (L/min) 35 02/10/25 21:00 Fraction of Inspired Oxygen (FIO2) 30 02/14/25 11:00 I&O: I&O Last 24 Hours 02/13/25 02/13/25 02/14/25 11:59 23:59 11:59 Intake Total 1572.75 / 2884.45 355.6 / 2884.45 1349.21 / 1349.21 Output Total 650 / 1175 525 / 1175 300 / 300 Balance 922.75 / 1709.45 -169.4 / 1709.45 1049.21 / 1049.21 I&O: Total Stay 02/05/25 09:43 thru 02/14/25 11:00 Intake Total 66871.86 Output Total 20318 Balance -2806.14 Current Meds Ordered / Administered: Current meds ordered / Administered Generic Name Dose Route Start Last Admin Trade Name Freq PRN Reason Stop Dose Admin Acetaminophen 650 mg 02/05/25 13:41 02/07/25 23:29 Acetaminophen 325 Mg Tablet PO 650 mg Q6H PRN PRN Administration Pain 1-10 Or Fever >100.7 Acetylcysteine 800 mg 02/10/25 11:30 02/14/25 06:58 Acetylcysteine 800 Mg/4 Ml Vial.Neb. INHALATION 800 mg Q8H.RT PARMINDER Administration Albuterol Sulfate 2.5 mg 02/10/25 11:30 02/14/25 06:58 Albuterol 2.5 Mg/3 Ml Vial.Neb. INHALATION 2.5 mg Q8H.RT PARMINDER Administration Aspirin 81 mg 02/06/25 08:00 02/14/25 07:33 Aspirin E.C. 81 Mg Tablet PO Not Given BREAKFAST PARMINDER Atorvastatin Calcium 40 mg 02/05/25 22:00 02/13/25 22:34 Atorvastatin Calcium 40 Mg Tablet PO 40 mg QHS PARMINDER Administration Calamine/Phenol 1 applic 02/11/25 22:00 02/14/25 05:04 Menthol/Lanolin/Calamine/Znox 113 Gm Tube TOPICAL 1 applic TID PARMINDER Administration Protocol Carvedilol 6.25 mg 02/05/25 19:30 02/14/25 07:30 Carvedilol 6.25 Mg Tablet PO 6.25 mg BIDCM PARMINDER Administration Protocol Chlorhexidine Gluconate 15 ml 02/10/25 10:00 02/14/25 10:09 Chlorhexidine 15 Ml PO 15 ml BID PARMINDER Administration Chlorhexidine Gluconate 1 each 02/13/25 10:00 02/14/25 06:21 Chlorhexidine Gluc 2% Cloth 1 Each [place] TOPICAL 1 each DAILY PARMINDER Administration Fentanyl Citrate 50 mcg 02/11/25 11:33 Fentanyl 100 Mcg/2 Ml Ampul IV Q1H PRN PRN CPOT score > 3 Fluoxetine HCl 10 mg 02/06/25 10:00 02/14/25 10:11 Fluoxetine 10 Mg Capsule PO 10 mg DAILY PARMINDER Administration Furosemide 40 mg 02/13/25 18:00 02/14/25 10:11 Furosemide 40 Mg/4 Ml Vial IV 40 mg BIDLX PARMINDER Administration Protocol Guaifenesin 10 ml 02/10/25 14:00 02/14/25 05:04 Guaifenesin 10 Ml Udc (200mg/10ml) NG 10 ml Q8H PARMINDER Administration Heparin Sodium (Porcine) 5,000 unit 02/08/25 14:00 02/13/25 22:45 Heparin Injection (Vial) 5,000 Unit/Ml Vial SC Not Given Q8 PARMINDER Hydralazine HCl 10 mg 02/06/25 08:30 02/14/25 05:04 Hydralazine 10 Mg Tablet PO 10 mg TID PARMINDER Administration Protocol Sodium Chloride 250 mls @ 15 mls/hr 02/05/25 16:53 02/11/25 16:00 IV 0 mls/hr .[id number] PRN Infusion Saline Flush Sodium Chloride 250 mls @ 15 mls/hr 02/05/25 16:53 IV .[id number] PRN Additional IVPB Infusion Norepinephrine Bitartrate 8 mg 250 mls @ 9.375 mls/hr 02/08/25 11:30 02/14/25 00:54 / Sodium Chloride CONT INF Not Given .[id number] PARMINDER Protocol 5 MCG/MIN Pantoprazole Sodium 40 mg/ 110 mls @ 330 mls/hr 02/08/25 12:30 02/14/25 07:51 Sodium Chloride IV Infused Q24 PARMINDER Infusion Enteral Nutritional Formula 1,000 mls @ 50 mls/hr 02/09/25 09:30 02/14/25 07:49 Vital High Protein GT Infused .Q20H PARMINDER Infusion Dexmedetomidine HCl 1,000 mcg/ 250 mls @ 13.6 mls/hr 02/10/25 01:30 02/14/25 11:00 Sodium Chloride CONT INF Infused .[id number] PARMINDER Titration Protocol 0.5 MCG/KG/HR Insulin Glargine 45 unit 02/14/25 10:00 02/14/25 10:09 Insulin Glargine-Yfgn 100 Unit/Ml Pen SC 25 unit BID PARMINDER Administration Insulin Human Lispro 0 unit 02/11/25 18:00 02/14/25 10:09 Insulin Lispro 100 Unit/Ml Insuln.Pen SC Not Given Q4 PARMINDER Protocol Isosorbide Dinitrate 5 mg 02/06/25 10:00 02/14/25 07:30 Isosorbide Dn 10 Mg Tablet PO 5 mg BID PARMINDER Administration Protocol Polyethylene Glycol 17 gm 02/07/25 10:00 02/14/25 10:11 Polyethylene Glycol 3350 17 Gm Packet PO Not Given DAILY PARMINDER Senna/Docusate Sodium 2 tablet 02/07/25 10:00 02/14/25 07:30 Senna/Docusate Sodium 1 Tablet PO 2 tablet BID PARMINDER Administration Sodium Chloride 10 - 40 ml 02/05/25 16:13 02/13/25 03:26 0.9% Saline Lock 10 Ml Syringe IV 20 ml UD PRN Administration SALINE FLUSH Lab / Micro Data 02/14/25 05:40 02/14/25 05:40 Labs: Laboratory Results - last 24 hr 02/13/25 12:30: POC Glucose 410 H 02/13/25 14:52: POC Glucose 355 H 02/13/25 17:40: POC Glucose 313 H 02/13/25 22:29: POC Glucose 341 H 02/14/25 01:29: POC Glucose 289 H 02/14/25 05:40: WBC 11.3 H, RBC 3.80 L, Hgb 8.1 L, Hct 27.7 L, MCV 72.9 L, MCH 21.3 L, MCHC 29.2 L, RDW Std Deviation 46.8 H, RDW Coeff of Bulmaro 18.5 H, Plt Count 249, MPV 10.4, Immature Gran % (Auto) 0.500, Neut % (Auto) 77.9 H, Lymph % (Auto) 8.8 L, [place] % (Auto) 10.4 H, Eos % (Auto) 1.9, Baso % (Auto) 0.5, Absolute Neuts (auto) 8.8 H, Absolute Lymphs (auto) 1.00, Nucleated RBC % 0, Sodium 140, Potassium 3.3, Chloride 93 L, Carbon Dioxide 28.9, Anion Gap 17 H, BUN 130 H*, Creatinine 2.49 H, Estim Creat Clear Calc 23.53 L, Est GFR (MDRD) Non-Af 20 L, BUN/Creatinine Ratio 52.2 H, Glucose 255 H, Calcium 8.5 02/14/25 05:45: POC Glucose 219 H 02/14/25 10:08: POC Glucose 166 H ABG Data ABG results: ABG 02/14/25 04:00 Specimen Type ART Sample Site L Radial pH 7.51 H Bicarbonate Actual 35.2 H Total CO2 37 Base Excess 12 H O2 Saturation 94 L O2 % 30.0 ABG pCO2 44.3 ABG pO2 66 L Harvey Test Positive Respiration Rate 14 O2 Delivery Device Adult Vent Vent Mode AC Tidal Volume 450.0 POC PEEP 5 Rhythm Strip Rhythm Strip: Sinus Rhythm Rate: 104 Imaging Radiology Impression Chest X-Ray 02/14/25 03:10 IMPRESSION: The right IJ line is no longer definitely identified, clinically correlate. Otherwise no significant interval change in appearance of the chest. Reading Location: [facility] Assessment and Plan . Assessment and plan: ASSESSMENT: 1. Acute hypoxic and hypercapnic respiratory failure: Intubated 02/08. On minimal settings: 450/14/35/5. Have decided to wait on wean until more volume removal(DIRECT CARE SUPERVISOR today). Prior to today-- during SBT mechanics poor--> RR in mid to high 20s, VTs in 200s to 300s. 2. Confusion: suspect sedation effect. Was on fentanyl until 02/10. More awake last 48 hours. Also uremic. 3. CHF exac: EF of 15%. Also with moderate MR. Was on lasix gtt but transitioned to bolus dosing. Will need aggressive volume removal to enhance chance at weaning. DIRECT CARE SUPERVISOR today. 4. UTI: 2/2 Ecoli. Completed course of antibxs 5. ELIDA on CKD: Cr stable. On lasix gtt but transitioned to bolus dose lasix 02/13. BUN continues to rise. DIRECT CARE SUPERVISOR later today. 6. FEN: TFs 7. Morbid Obesity 8. PX: SQ heparin Red Bustamante MD Critical Care Time: 50 min The entirety of this encounter was done via Telemedicine Physical Exam Narrative Physical Exam: Gen: NAD, obese, intubated HEENT: Pupils: =ETT in place Resp:Diminished BS. Mechanically ventilated CV: RRR. No m/g/r Abd: Soft, NT, ND Ext: No c/c. +edema (minimal/improving) Skin: No rashes? Neuro:awakens, follows, better today Subjective Subjective did okay during SBT 02/13, was not hypercapnic. VTs in 200s to 300s. Awaiting HD catheter placement
--- NOTE | 2025-02-14 11:31 | PCM.PRE.AN2 ---
ASA Classification* ASA Classification ASA Classification: 4 Assessment & Plan Anesthesia* Anesthesia Assessment Anesthesia Assessment: Discussed sedation and/or anesthesia options, risks, benefits, and alternatives with patient/parents/legal guardian/POA. Questions invited. The patient/parents/legal guardian/POA seems to understand and agrees to proceed with anesthesia plan. Reviewed the physical assessment, medical history, allergy history and patient home medications list prior to surgery/procedure/anesthetic and documented any changes. Performed airway and anesthesia risk assessments. Anesthesia Type Anesthesia Type: MAC Anesthesia Focused Assessment* Temperature: 97.9 F Pulse Rate: 61 Blood Pressure: 139/56 Respiratory Rate: 14 Pulse Ox: 94 Oxygen Flow Rate (L/min): 35 Fraction of Inspired Oxygen (FIO2): 30 Airway Assessment Mouth opens: >3 cm Mallampati Score: II Comment: Currently in intensive care unit bed 2. Intubated. Ejection fraction 15%. Will require just moderate sedation. Focused Labs Anesthesia Preop lab: CBC WBC 11.3 K/mm3 (4.4-11.0) H 02/14/25 05:40 02/14/25 RBC 3.80 M/mm3 (4.2-5.4) L 02/14/25 05:40 02/14/25 Hgb 8.1 g/dL (12.0-15.0) L 02/14/25 05:40 02/14/25 Hct 27.7 % (37-47) L 02/14/25 05:40 02/14/25 Plt Count 249 K/mm3 (150-450) 02/14/25 05:40 02/14/25 CHEMISTRY Potassium 3.3 mmol/L (3.3-5.1) 02/14/25 05:40 02/14/25 Sodium 140 mmol/L (133-145) 02/14/25 05:40 02/14/25 Magnesium 2.6 mg/dL (1.5-2.2) H 02/05/25 13:03 02/05/25 Phosphorus 6.1 mg/dL (2.7-4.5) H 02/05/25 13:03 02/05/25 BUN 130 mg/dL (4-19) H* 02/14/25 05:40 02/14/25 Creatinine 2.49 mg/dL (0.70-1.20) H 02/14/25 05:40 02/14/25 Glucose 255 mg/dL (70-99) H 02/14/25 05:40 02/14/25 POC Glucose 166 mg/dL (74-106) H 02/14/25 10:08 02/14/25 TSH 3.320 uIU/mL (0.300-4.200) 02/06/25 04:20 02/06/25 COAG PT 17.1 SECONDS (11.7-14.9) H 02/05/25 09:59 02/05/25 Pre-Assessment Diagnosis/Proposed Procedure Planned Operative Procedure(s): Insertion, hemodialysis catheter. Left possible right tunneled dialysis catheter. Anesthesia History Anesthesia History - electronic tester: Anesthesia History - electronic tester Hx Hospitalization No 09/27/13 23:52 Any Problems With Anesthesia No 07/14/24 10:59 Cholinesterase deficiency No 02/23/22 05:50 You/Your Family Experience No 07/14/24 10:59 fever (hyperthermia) with Relationship Recent Exposure to Contagious No 07/14/24 10:59 Disease Does patient have nerve No 07/14/24 10:59 stimulator Patient instructed to have device shut off --Does patient have Pacemaker or ICD? When Was Last Pacemaker Check QUESTION #4 FULL TEXT: You/Your Family Experience fever (hyperthermia) with Anesthesia Last Oral Intake Last Oral intake: Last Oral Intake NPO since Meds taken in AM with sips of water? Meds patient instructed to take am of surgery PONV PONV - electronic tester: PONV - electronic tester Female HX of Motion Sickness HX of N/V After Surgery Non-Smoker Duration of Surgery greater than 60 minutes Number of Risk Factors PONV Score Height & Weight Height & Weight: Anesthesia: Height & Weight Height 5 ft 5 in 02/14/25 09:44 Weight: 108.4 kg 02/14/25 09:44 Body Mass Index (BMI) 39.7 02/14/25 04:47 Respiratory Assessment Respiratory Assessment - electronic tester: Respiratory Tract Infection Hx - electronic tester Hx Respiratory Tract Infection No 07/14/24 10:59 STOP Sleep Apnea STOP Sleep Apnea - electronic tester: STOP Sleep Apnea - electronic tester Hx Hypertension Yes 02/06/25 16:12 Hx Sleep Apnea No 02/05/25 15:55 CPAP No 07/14/24 17:43 BIPAP No 07/13/24 17:35 Do you snore loudly (louder No 02/05/25 15:55 than talking or can be heard Do you often feel tired/ No 02/05/25 15:55 fatigued/ sleepy during daytime? Has anyone observed you stop No 02/05/25 15:55 breathing during sleep? STOP Results Negative 02/05/25 15:55 QUESTION #5 FULL TEXT : Do you snore loudly (louder than talking or can be heard through closed doors)? 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 Specify any problems Hx of Preganancy in last 3 No 02/05/25 15:55 Months Nurse Filling Out Transfusion JTURCHYN 02/05/25 15:55 & Questions: Date: 02/05/25 02/05/25 15:55 Time: 16:00 02/05/25 15:55 Patient unable to answer at this time (ie. confused, unrespo /Reproduction History /Reproductive History - electronic tester: /Reproductive Hx- electronic tester Hx Now Gestational Age (in weeks): EDC: Hx Hx Para Hx Section SAB No 02/23/22 05:50 Active Medications Active Medications: Current Medications Generic Name Dose Route Start Last Admin Trade Name Freq PRN Reason Stop Dose Admin Acetaminophen 650 mg 02/05/25 13:41 02/07/25 23:29 Acetaminophen 325 Mg Tablet PO 650 mg Q6H PRN PRN Administration Pain 1-10 Or Fever >100.7 Acetylcysteine 800 mg 02/10/25 11:30 02/14/25 06:58 Acetylcysteine 800 Mg/4 Ml Vial.Neb. INHALATION 800 mg Q8H.RT PARMINDER Administration Albuterol Sulfate 2.5 mg 02/10/25 11:30 02/14/25 06:58 Albuterol 2.5 Mg/3 Ml Vial.Neb. INHALATION 2.5 mg Q8H.RT PARMINDER Administration Aspirin 81 mg 02/06/25 08:00 02/14/25 07:33 Aspirin E.C. 81 Mg Tablet PO Not Given BREAKFAST PARMINDER Atorvastatin Calcium 40 mg 02/05/25 22:00 02/13/25 22:34 Atorvastatin Calcium 40 Mg Tablet PO 40 mg QHS PARMINDER Administration Calamine/Phenol 1 applic 02/11/25 22:00 02/14/25 05:04 Menthol/Lanolin/Calamine/Znox 113 Gm Tube TOPICAL 1 applic TID PARMINDER Administration Protocol Carvedilol 6.25 mg 02/05/25 19:30 02/14/25 07:30 Carvedilol 6.25 Mg Tablet PO 6.25 mg BIDCM PARMINDER Administration Protocol Chlorhexidine Gluconate 15 ml 02/10/25 10:00 02/14/25 10:09 Chlorhexidine 15 Ml PO 15 ml BID PARMINDER Administration Chlorhexidine Gluconate 1 each 02/13/25 10:00 02/14/25 06:21 Chlorhexidine Gluc 2% Cloth 1 Each Towelette TOPICAL 1 each DAILY PARMINDER Administration Fentanyl Citrate 50 mcg 02/11/25 11:33 Fentanyl 100 Mcg/2 Ml Ampul IV Q1H PRN PRN CPOT score > 3 Fluoxetine HCl 10 mg 02/06/25 10:00 02/14/25 10:11 Fluoxetine 10 Mg Capsule PO 10 mg DAILY PARMINDER Administration Furosemide 40 mg 02/13/25 18:00 02/14/25 10:11 Furosemide 40 Mg/4 Ml Vial IV 40 mg BIDLX PARMINDER Administration Protocol Guaifenesin 10 ml 02/10/25 14:00 02/14/25 05:04 Guaifenesin 10 Ml Udc (200mg/10ml) NG 10 ml Q8H PARMINDER Administration Heparin Sodium (Porcine) 5,000 unit 02/08/25 14:00 02/13/25 22:45 Heparin Injection (Vial) 5,000 Unit/Ml Vial SC Not Given Q8 PARMINDER Hydralazine HCl 10 mg 02/06/25 08:30 02/14/25 05:04 Hydralazine 10 Mg Tablet PO 10 mg TID PARMINDER Administration Protocol Sodium Chloride 250 mls @ 15 mls/hr 02/05/25 16:53 02/11/25 16:00 IV 0 mls/hr .[id number] PRN Infusion Saline Flush Sodium Chloride 250 mls @ 15 mls/hr 02/05/25 16:53 IV .[id number] PRN Additional IVPB Infusion Norepinephrine Bitartrate 8 mg 250 mls @ 9.375 mls/hr 02/08/25 11:30 02/14/25 00:54 / Sodium Chloride CONT INF Not Given .[id number] PARMINDER Protocol 5 MCG/MIN Pantoprazole Sodium 40 mg/ 110 mls @ 330 mls/hr 02/08/25 12:30 02/14/25 07:51 Sodium Chloride IV Infused Q24 PARMINDER Infusion Enteral Nutritional Formula 1,000 mls @ 50 mls/hr 02/09/25 09:30 02/14/25 07:49 Vital High Protein GT Infused .Q20H PARMINDER Infusion Dexmedetomidine HCl 1,000 mcg/ 250 mls @ 13.6 mls/hr 02/10/25 01:30 02/14/25 11:28 Sodium Chloride CONT INF 1 mcg/kg/hr .[id number] PARMINDER 27.2 mls/hr Administration Protocol 0.5 MCG/KG/HR Insulin Glargine 45 unit 02/14/25 10:00 02/14/25 10:09 Insulin Glargine-Yfgn 100 Unit/Ml Pen SC 25 unit BID PARMINDER Administration Insulin Human Lispro 0 unit 02/11/25 18:00 02/14/25 10:09 Insulin Lispro 100 Unit/Ml Insuln.Pen SC Not Given Q4 [facility] Protocol Isosorbide Dinitrate 5 mg 02/06/25 10:00 02/14/25 07:30 Isosorbide Dn 10 Mg Tablet PO 5 mg BID PARMINDER Administration Protocol Polyethylene Glycol 17 gm 02/07/25 10:00 02/14/25 10:11 Polyethylene Glycol 3350 17 Gm Packet PO Not Given DAILY PARMINDER Senna/Docusate Sodium 2 tablet 02/07/25 10:00 02/14/25 07:30 Senna/Docusate Sodium 1 Tablet PO 2 tablet BID PARMINDER Administration Sodium Chloride 10 - 40 ml 02/05/25 16:13 02/13/25 03:26 0.9% Saline Lock 10 Ml Syringe IV 20 ml UD PRN Administration SALINE FLUSH [facility] Medical History Essential hypertension Morbid obesity with BMI of 40.0-44.9, adult Hypothermia Cardiomyopathy Chronic anemia Hypoxia History of diabetes mellitus Acute metabolic encephalopathy due to hypoglycemia History of stroke Chronic kidney disease Altered level of consciousness Non-pressure chronic ulcer of other 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 Chronic kidney disease (CKD) Type 2 diabetes mellitus with hypoglycemia Diabetes mellitus with diabetic polyneuropathy Type 2 diabetes mellitus with foot ulcer Diabetes mellitus with diabetic polyneuropathy Dyspnea Ischemic cardiomyopathy History of CVA (cerebrovascular accident) Atherosclerosis of coronary artery without angina pectoris Type 2 diabetes mellitus Secondary pulmonary arterial hypertension Chronic combined systolic and diastolic CHF (congestive heart failure) Essential hypertension Obesity Chronic kidney disease (CKD) GI bleed (01/2022) Anemia Diabetes mellitus type 2 in obese Hyperlipidemia Home Medications ?Medication ?Instructions ?Recorded ?Last Taken ?Type atorvastatin 40 mg tablet 40 mg PO QHS CHOLESTEROL 02/22/22 Unknown History aspirin 81 mg tablet,delayed 81 mg PO DAILY [facility] 06/03/22 Unknown History release (Adult Aspirin Regimen) dapagliflozin propanediol 10 mg 10 mg PO DAILY DIABETES #90 tabs 07/12/24 Unknown Rx tablet (Farxiga) blood sugar diagnostic (Accu-Chek 07/13/24 Unknown History Alvina Plus test strips) fluoxetine 10 mg capsule 10 mg PO DAILY DEPERSSION 07/13/24 Unknown History insulin lispro 100 unit/mL 15 unit subcut ACHS DM 07/13/24 Unknown History subcutaneous pen (Humalog KwikPen (U-100) Insulin) amlodipine 5 mg tablet 5 mg PO DAILY HEART #0 tabs 07/18/24 Unknown Rx vitamin B complex (Complex B-100 1 tab PO DAILY [facility] 08/19/24 Unknown History tablet,extended release) carvedilol 12.5 mg tablet 12.5 mg PO BIDCM #30 tabs 08/22/24 Unknown Rx losartan 50 mg tablet 50 mg PO DAILY #30 tabs 08/22/24 Unknown Rx furosemide 40 mg tablet 40 mg PO BID #60 tabs 01/30/25 Unknown Rx metolazone 5 mg tablet 5 mg PO DAILY HE 01/30/25 Unknown History acetaminophen 325 mg tablet 650 mg PO Q6H PRN Pain 1-10 Or 02/05/25 Unknown History Fever >100.7 Allergy/AdvReac Type Severity Reaction Status Date / Time No Known Allergies Allergy Verified 02/05/25 09:50 Family History Father Diabetes Heart disease CAD (coronary artery disease) Mother Heart disease Surgical History History of coronary artery stent placement (09/2013) H/O vein stripping Status post angioplasty with stent Social History household members: family Smoking Status: Former smoker how long ago did patient quit smokin years ago alcohol intake: never substance use type: does not use caffeine: Yes Review of Systems (Anesthesia) ROS Narrative System reviewed and no additional complaints, except as documented.
[2025-02-14] MEDS: Cefazolin 2 GM in 0.9% Normal Saline (100mL Bag) 100 ML IV (12:50)
[2025-02-14] MEDS: Bupivacaine Mpf 0.5% 30 ML VIAL (13:19)
[2025-02-14] MEDS: Heparin 10,000 UNITS/10 ML Vial 10000 UNITS (13:40)
--- NOTE | 2025-02-14 13:50 | RAD_ITS ---
EXAM: XR Chest, 1 View CLINICAL INDICATION: S/P R IJ LINE TECHNIQUE: Frontal view of the chest. COMPARISON: XR Chest dated 02/14/2025 FINDINGS: LUNGS AND PLEURAL SPACES: Bilateral pleural effusions. HEART: Cardiomegaly with mild congestion. MEDIASTINUM: Unremarkable. Normal mediastinal contour. BONES/JOINTS: Unremarkable. No acute fracture. TUBES, LINES AND DEVICES: Right internal jugular central venous catheter tip in the superior vena cava. The endotracheal tube (ETT) is in satisfactory position. Enteric tube tip in the stomach. RAD/Chest 1 View (Portable) IMPRESSION: 1. Cardiomegaly with mild congestion. 2. Bilateral pleural effusions. Reading [facility]
--- NOTE | 2025-02-14 13:50 | PCM.OPRPT ---
Procedures Cardiovascular CF Procedures [id number]-[id number]: [id number] Insert tunneled cv cath Operative Report (Standard) Operative Information Date of Procedure: 02/14/25 Pre-Operative Diagnosis: ELIDA on chronic kidney disease with volume overload requiring initiation of hemodialysis Post-Operative Diagnosis: Same Surgery/Procedure Performed: Ultrasound and thoracoscopic guided placement of right internal jugular tunneled hemodialysis catheter assembler metal building: No Type of Anesthesia: Sedation,Conscious RN Documented Start/Stop Times: Operation Date: 02/14/25 12:50 Case Time Anesthesia Start 02/14/25 12:35 Into Room 02/14/25 12:35 Procedure Start 02/14/25 13:15 Procedure End 02/14/25 13:47 Anesthesia End 02/14/25 13:58 Out of Room 02/14/25 13:58 Procedure Start Time: 13:15 Procedure Stop Time: 13:47 Select all DRAINS/GRAFTS/IMPLANTS that apply: Implanted device Implanted device details: PowerPort MRI implantable port reference [id number], lot [id number], expiration 01/24/2026 Estimated Blood Loss: 5 Specimen collected: No Description of surgery: After appropriate identification in the intensive care unit, the patient was brought to the operating room where they were positioned supine on the operating room table and connected to the ventilator. Preoperative antibiotics were completely administered. Sedation was begun per anesthesia and the patient's right neck was inspected with ultrasound where I found the right internal jugular vein to be patent. Thus it was prepped and draped in usual sterile fashion. Formal timeout was conducted to confirm both the patient and the procedure. Procedure was begun with ultrasound-guided access of the right internal jugular vein using a standard finder needle with 1 attempt. Then the 035 guidewire was placed and fluoroscopy confirmed appropriate position of the wire. At this point I made a measurement from the insertion site to the mid atrium of approximately 15 cm. Desiring some room for the patient's tunneling/cuff placement, elected to proceed with a 19 cm catheter. The insertion site was then enlarged sharply and bluntly. Measuring back from the proximal insertion site on the catheter, we determined that the tunneling site would need to be at least 7 cm away from the insertion site. Therefore this was measured out on the patient's chest and a counterincision was made at this point after instilling local anesthetic. A gentle curve of the tunneling tract to the insertion site was also instilled with local anesthetic. Then the catheter was connected to the tunneling device and was tunneled to the insertion site. Next the insertion site was serially dilated and the peel-away sheath was placed under fluoroscopy. The catheter was fed through the peel-away sheath and once we neared completion another fluoroscopy image was obtained. This showed a kinking of the line at the vein insertion site but with some manual manipulation and flushing this kink worked its way out. Functionally, the catheter was tested with aspiration and flush of injectable saline which it did with ease. The insertion site was then closed with a single interrupted 2-0 nylon stitch. Another 2-0 nylon stitch was used to close down the insertion site at the tunneling entrance as a means of creating a cerclage. Lastly, the catheter was secured at the tiedown points on each port with a interrupted 2-0 nylon. Now each catheter lumen was locked with 2 mL heparinized saline (concentration 1000 units/mL) per package specification. Chlorhexidine gel dressing was placed about the catheter. A small OpSite was applied to the insertion site. Patient was then allowed to emerge from sedation and was returned to the ICU in unchanged condition. A chest x-ray was ordered for review of the catheter placement and to exclude pneumothorax. Surgical Findings: ? Widely patent right internal jugular vein with distal soft tissue edema/hematoma Complications Complications: No
--- NOTE | 2025-02-14 14:16 | PCM.POST.ANE ---
Anesthesia: Postop Eval I Current Vital Signs Temperature: 96.8 F Pulse Rate: 65 Blood Pressure: 126/62 Respiratory Rate: 14 Pulse Ox: 96 Oxygen Delivery Method: Mechanical Ventilator Oxygen Flow Rate (L/min): 8 Assessment Airway patent: Yes Spontaneous unlabored respirations: No Mental status: Calm and Asleep nausea: No Vomiting: No Anesthesia Complication: No Fluid Hydration Crystalloid volume administer (ml): 10 Total IV fluid infused: 10 Progress Note Anesthesia document: Postop Eval 1 completed: Yes
[2025-02-14] MEDS: PureFlow B 4K Dialysis Soln 1 BAG 6 BAG PF (14:39)
[2025-02-14] MEDS: 0.9% Normal Saline 1,000 ML IV.SOLN. 1000 ML OPERA.SITE (14:39)
[2025-02-14] MEDS: 0.9% Saline Lock 10 ML Syringe IV (14:40)
[2025-02-14 14:53] LABS: Bedside Glucose 175 mg/dL (74-106)
[2025-02-14] MEDS: Vital High Protein 1,000 ML 50 ML GT (14:53)
[2025-02-14 15:51] LABS: Hepatitis B Surface Antigen Nonreactive (Nonreactive)
[2025-02-14] MEDS: Heparin 10,000 UNITS/10 ML Vial IV (16:53)
[2025-02-14 18:07] LABS: Bedside Glucose 169 mg/dL (74-106)
[2025-02-14] MEDS: NEPRO 1,000 ML 30 ML GT (18:11)
[2025-02-14] MEDS: Atorvastatin Calcium 40 MG Tablet PO (21:47)
[2025-02-14 22:27] LABS: Bedside Glucose 207 mg/dL (74-106)
[2025-02-15] VITALS (54 sets, daily range): BP systolic 89–223; BP diastolic 45–90; PULSE 58–69; RESP 14–32; TEMP 36.2–36.8; O2SAT 92–100; BMI 39.2; BMI 37.8
[2025-02-15] MEDS: Insulin Lispro 100 UNIT/ML INSULN.PEN SC ×6 (02:11→22:31)
--- NOTE | 2025-02-15 03:45 | RAD_ITS ---
PROCEDURE: CHEST 1 VIEW (PORTABLE) 02/15/2025 REASON FOR EXAM: ETT VALIDATION TECHNIQUE: Frontal view of the chest. At 03:47 COMPARISON: 02/14/2025 at 14:19 FINDINGS: Endotracheal tube 2 cm above the asia. Nasogastric tube and side port crosses the diaphragm with tip extending off the inferior edge of the film. Small bilateral pleural effusions with bibasilar areas of atelectasis, partial passive collapse with developing infiltrate not excluded. Mild pulmonary vascular congestion. Right- sided dialysis catheter again noted. RAD/Chest 1 View (Portable) IMPRESSION: Endotracheal tube 2 cm above the asia. Nasogastric tube and side port crosses the diaphragm with tip extending off the inferior edge of the film. Small bilateral pleural effusions with bibasilar areas of atelectasis, partial passive collapse with developing infiltrate not excluded. Mild pulmonary vascular congestion. Right-sided dialysis catheter again noted. Reading Location: [id number]
[2025-02-15] MEDS: dexMEDEtomidine 1,000 MCG in 0.9% Normal Saline (250mL Bag) 240 ML 27.2 MCG CONT INF ×2 (04:45→14:39)
[2025-02-15 04:54] LABS: Absolute Lymphocyte Count 0.92 X10^3/uL (0.83-4.51); Absolute Neutrophil Count 9.8 X10^3/uL (2.0-7.7); Basophil# 0.08 X10^3/uL; Basophil% 0.7 % (0-1); Eosinophil# 0.23 X10^3/uL; Eosinophils% 1.9 % (0-5); Hematocrit 28.9 % (37-47); Hemoglobin 8.5 g/dL (12.0-15.0); Lymphocyte # 0.92 X10^3/ul (0.83-4.51); Lymphocyte % 7.6 % (19-41); Mean Corp Hgb Conc 29.4 g/dL (32-36); Mean Corpuscular Hgb 21.7 pg (27.0-32.0); Mean Corpuscular Volume 73.9 fL (81-99); Mean Platelet Vol. 10.9 fl (6.2-12.0); Monocyte# 1.02 X10^3/uL; Monocyte% 8.4 % (0-10); NRBC Flagged by Analyzer 0 % (0-5); Neutrophil # 9.76 X10^3/uL (2.7-7.7); Neutrophil % 80.8 % (47-70); Platelet Count 282 K/mm3 (150-450); RBC Distribution Width CV 19.1 % (11.6-14.6); RBC Distribution Width SD 47.8 fl (35.1-43.9); Red Blood Count 3.91 M/mm3 (4.2-5.4); White Blood Count 12.1 K/mm3 (4.4-11.0)
[2025-02-15 05:04] LABS: Magnesium 2.1 mg/dL (1.5-2.2)
[2025-02-15 05:12] LABS: Allen Test Positive; Base Excess 10 mmol/L (-2 to +2); Bicarbonate 32.7 mmol/L (22-26); Blood Gas Specimen Type ART; Mode AC; O2 Delivery Device Adult Vent; PEEP 5; PO2 72 mmHG (75-100); RR 14; SITE R Radial; SO2 96 % (95-99); Total Carbon Dioxide 34 mmol/L; pCO2 40.4 mmHg (35-45); pH 7.52 (7.35-7.45)
[2025-02-15 05:17] LABS: Anion Gap 17 (5-15); BUN 119 mg/dL (4-19); BUN/Creat Ratio 53.6 RATIO (10-20); Calcium,Total 8.6 mg/dL (7.6-11.0); Carbon Dioxide 26.7 mmol/L (21.0-32.0); Chloride 96 mmol/L (98-108); Creatinine, Serum 2.22 mg/dL (0.70-1.20); EST Glomerular Filtration Rate 22 (>60); Estimated Creatinine Clearance 26.18 ml/min (50-250); Glucose 237 mg/dL (70-99); Sodium Level 139 mmol/L (133-145)
[2025-02-15] MEDS: hydrALAZINE 10 MG Tablet PO ×3 (06:03→22:29)
[2025-02-15] MEDS: Menthol/Lanolin/Calamine/Znox 113 GM Tube 1 APPLIC TOPICAL ×3 (06:03→22:26)
[2025-02-15] MEDS: guaiFENesin 10 ML UDC (200MG/10ML) NG ×3 (06:03→22:27)
[2025-02-15 06:32] LABS: Bedside Glucose 232 mg/dL (74-106)
[2025-02-15 06:32] LABS: Bedside Glucose 222 mg/dL (74-106)
[2025-02-15] MEDS: Acetylcysteine 800 MG/4 ML VIAL.NEB. INHALATION ×4 (07:04→22:09)
[2025-02-15] MEDS: Albuterol 2.5 MG/3 ML VIAL.NEB. INHALATION ×4 (07:04→22:09)
--- NOTE | 2025-02-15 07:48 | PN.SURG_ITS ---
Subjective Subjective Patient evaluated resting comfortably in bed. Dialysis was completed yesterday following tunneled catheter placement. Patient tolerated dialysis well. Objective Data Objective Data Vital Signs: Vital Signs Temp Pulse Resp BP Pulse Ox O2 Del Method O2 Flow Rate 97.9 F 65 14 114/53 L 96 Mechanical Ventilator 8 02/15/25 06:00 02/15/25 07:07 02/15/25 07:07 02/15/25 07:00 02/15/25 07:07 02/15/25 07:07 02/14/25 14:18 FiO2 30 02/15/25 07:07 Oxygen Flow Rate (L/min) 8 Oxygen Delivery Method Mechanical Ventilator Weight: 235 lb 7.259 oz Body Mass Index (BMI) 39.2 Intake & Output: Intake and Output for Last 24 Hours 02/13/25 02/14/25 02/15/25 23:59 23:59 23:59 Intake Total 1928.35 / 2884.45 1982.92 / 2140.12 632.6 / 632.6 Output Total 1175 / 1175 5100 / 5100 175 / 175 Balance 753.35 / 1709.45 -3117.08 / -2959.88 457.6 / 457.6 Lab / Micro Data 02/15/25 04:25 02/15/25 04:25 Labs: Laboratory Results - last 24 hr 02/14/25 10:08: POC Glucose 166 H 02/14/25 14:33: POC Glucose 175 H 02/14/25 14:48: Hep Bs Antigen Nonreactive 02/14/25 17:08: POC Glucose 169 H 02/14/25 21:40: POC Glucose 207 H 02/15/25 02:09: POC Glucose 232 H 02/15/25 04:25: WBC 12.1 H, RBC 3.91 L, Hgb 8.5 L, Hct 28.9 L, MCV 73.9 L, MCH 21.7 L, MCHC 29.4 L, RDW Std Deviation 47.8 H, RDW Coeff of Bulmaro 19.1 H, Plt Count 282, MPV 10.9, Immature Gran % (Auto) 0.600, Neut % (Auto) 80.8 H, Lymph % (Auto) 7.6 L, [place] % (Auto) 8.4, Eos % (Auto) 1.9, Baso % (Auto) 0.7, Absolute Neuts (auto) 9.8 H, Absolute Lymphs (auto) 0.92, Nucleated RBC % 0, Sodium 139, Potassium 3.0 L, Chloride 96 L, Carbon Dioxide 26.7, Anion Gap 17 H, BUN 119 H*, Creatinine 2.22 H, Estim Creat Clear Calc 26.18 L, Est GFR (MDRD) Non-Af 22 L, B UN/Creatinine Ratio 53.6 H, Glucose 237 H, Calcium 8.6, Phosphorus 4.0, Magnesium 2.1 02/15/25 06:01: POC Glucose 222 H Micro: Microbiology 02/05/25 12:15 Blood Culture (Wb) - Left Wrist Blood Culture - Final No growth in 5 days. 02/05/25 12:04 Blood Culture (Wb) - Right Hand Blood Culture - Final No growth in 5 days. 02/08/25 11:15 Sputum, Induced/Lukens Gram Stain - Final 02/08/25 11:15 Sputum, Induced/Lukens Respiratory Culture - Final Mixed normal respiratory dave. No Streptococcus pneumoniae, beta-hemolytic Streptococcus or Staphylococcus aureus isolated. 02/08/25 00:05 Stool Stool Occult Blood (TREVOR) - Final 02/05/25 11:20 Urine Catheter - Catheter Urine Culture - Final Presumptive E. coli 02/05/25 16:50 Nasal Secretion MRSA (PCR) - Final 02/05/25 16:50 Wound - Leg, Left Skin and Soft Tissue MRSA/MSSA (PCR - Final ABG Data ABG results: ABG 02/15/25 05:06 Specimen Type ART Sample Site R Radial pH 7.52 H Bicarbonate Actual 32.7 H Total CO2 34 Base Excess 10 H O2 Saturation 96 O2 % 30.0 ABG pCO2 40.4 ABG pO2 72 L Harvey Test Positive Respiration Rate 14 O2 Delivery Device Adult Vent Vent Mode AC Tidal Volume 450.0 POC PEEP 5 Radiography Diagnostic Testing: Radiology Impression Chest X-Ray 02/14/25 13:50 IMPRESSION: 1. Cardiomegaly with mild congestion. 2. Bilateral pleural effusions. Reading Location: [facility] Chest X-Ray 02/15/25 03:45 IMPRESSION: Endotracheal tube 2 cm above the asia. Nasogastric tube and side port crosses the diaphragm with tip extending off the inferior edge of the film. Small bilateral pleural effusions with bibasilar areas of atelectasis, partial passive collapse with developing infiltrate not excluded. Mild pulmonary vascular congestion. Right-sided dialysis catheter again noted. Reading Location: [facility] Rhythm Strip Rhythm Strip: Sinus Rhythm Rate: 104 Physical Exam Neck Neck Narrative: Right neck- micropuncture with op-site intact. No oozing of blood noted. Chest catheter intact without any drainage or bleeding noted. No hematoma is noted. Catheter appears clean. Assessment & Plan Assessment/Plan (1) ELIDA (acute kidney injury): PLAN: I am following this patient in conjunction with Dr. Brown. He will independently evaluate this patient. Catheter seems to be functioning well and healing well Right neck op-site can be removed in 2 days We will sign off of this patient at this time Thank you for allowing us to participate in this patient's care Reconsult our services if needed Charges/Coding Visit Charges Inpatient E&M: 73337 Subs Hosp L1 (post-op)
[2025-02-15] MEDS: 0.9% Normal Saline 1,000 ML IV.SOLN. 1000 ML OPERA.SITE (08:18)
[2025-02-15] MEDS: 0.9% Saline Lock 10 ML Syringe IV ×2 (08:19→18:04)
[2025-02-15] MEDS: PureFlow B 4K Dialysis Soln 1 BAG 6 BAG PF (08:19)
[2025-02-15] MEDS: Heparin 10,000 UNITS/10 ML Vial IV (08:19)
--- NOTE | 2025-02-15 09:39 | PN.CC_ITS ---
Objective Data Objective Data Vital Signs: Vital Signs Last response 3 Temperature 36.7 C 02/15/25 08:05 Temperature Source Temporal 02/15/25 08:05 Pulse Rate 61 02/15/25 09:30 Pulse Strength Weak (1+) 02/14/25 09:29 Respiratory Rate 14 02/15/25 09:30 Respiratory Effort Non-Labored, Mechanically Ventilated 02/15/25 09:15 Respiratory Depth Normal 02/15/25 09:15 Respiratory Pattern Normal 02/15/25 09:15 Blood Pressure 126/53 H 02/15/25 09:30 Blood Pressure Mean 77 02/15/25 09:30 Blood Pressure Source Monitor 02/15/25 09:30 Blood Pressure Position Semi-Fowlers 02/15/25 09:30 Blood Pressure Location Right Forearm 02/15/25 09:30 Pulse Ox 98 02/15/25 09:30 Oxygen Delivery Method Mechanical Ventilator 02/15/25 09:30 Oxygen Flow Rate (L/min) 8 02/14/25 14:18 Fraction of Inspired Oxygen (FIO2) 30 02/15/25 09:30 I&O: I&O Last 24 Hours 3 02/14/25 02/14/25 02/15/25 11:59 23:59 11:59 Intake Total 1349.21 / 2140.12 633.71 / 2140.12 687.0 / 687.0 Output Total 575 / 5100 4525 / 5100 175 / 175 Balance 774.21 / -2959.88 -3891.29 / -2959.88 512.0 / 512.0 I&O: Total Stay 3 02/05/25 09:43 thru 02/15/25 09:00 Intake Total 05431.57 Output Total 44610 Balance -6460.43 Current Meds Ordered / Administered: Current meds ordered / Administered 3 Generic Name Dose Route Start Last Admin Trade Name Freq PRN Reason Stop Dose Admin Acetaminophen 650 mg 02/05/25 13:41 02/07/25 23:29 Acetaminophen 325 Mg Tablet PO 650 mg Q6H PRN PRN Administration Pain 1-10 Or Fever >100.7 Acetylcysteine 800 mg 02/10/25 11:30 02/15/25 07:04 Acetylcysteine 800 Mg/4 Ml Vial.Neb. INHALATION 800 mg Q8H.RT PARMINDER Administration Albuterol Sulfate 2.5 mg 02/10/25 11:30 02/15/25 07:04 Albuterol 2.5 Mg/3 Ml Vial.Neb. INHALATION 2.5 mg Q8H.RT PARMINDER Administration Aspirin 81 mg 02/06/25 08:00 02/14/25 07:33 Aspirin E.C. 81 Mg Tablet PO Not Given BREAKFAST PARMINDER Atorvastatin Calcium 40 mg 02/05/25 22:00 02/14/25 21:47 Atorvastatin Calcium 40 Mg Tablet PO 40 mg QHS PARMINDER Administration Calamine/Phenol 1 applic 02/11/25 22:00 02/15/25 06:03 Menthol/Lanolin/Calamine/Znox 113 Gm Tube TOPICAL 1 applic TID PARMINDER Administration Protocol Carvedilol 6.25 mg 02/05/25 19:30 02/14/25 17:09 Carvedilol 6.25 Mg Tablet PO 6.25 mg BIDCM PARMINDER Administration Protocol Chlorhexidine Gluconate 15 ml 02/10/25 10:00 02/14/25 21:45 Chlorhexidine 15 Ml PO 15 ml BID PARMINDER Administration Chlorhexidine Gluconate 1 each 02/13/25 10:00 02/14/25 06:21 Chlorhexidine Gluc 2% Cloth 1 Each [place]lette TOPICAL 1 each DAILY PARMINDER Administration Fentanyl Citrate 50 mcg 02/11/25 11:33 Fentanyl 100 Mcg/2 Ml Ampul IV Q1H PRN PRN CPOT score > 3 Fluoxetine HCl 10 mg 02/06/25 10:00 02/14/25 10:11 Fluoxetine 10 Mg Capsule PO 10 mg DAILY PARMINDER Administration Furosemide 40 mg 02/13/25 18:00 02/14/25 17:10 Furosemide 40 Mg/4 Ml Vial IV 40 mg BIDLX PARMINDER Administration Protocol Guaifenesin 10 ml 02/10/25 14:00 02/15/25 06:03 Guaifenesin 10 Ml Udc (200mg/10ml) NG 10 ml Q8H PARMINDER Administration Hemodialysis Solution 6 bag 02/15/25 07:15 02/15/25 08:19 Pureflow B 4k Dialysis Soln 1 Bag PF 02/15/25 19:14 6 bag UD PARMINDER Administration Protocol Heparin Sodium (Porcine) 5,000 unit 02/08/25 14:00 02/13/25 22:45 Heparin Injection (Vial) 5,000 Unit/Ml Vial SC Not Given Q8 PARMINDER Heparin Sodium (Porcine) 1,000 - 3,000 units 02/15/25 07:13 02/15/25 08:19 Heparin 10,000 Units/10 Ml Vial IV 02/15/25 19:14 1,600 units X1 PRN Administration HD catheter closing Hydralazine HCl 10 mg 02/06/25 08:30 02/15/25 06:03 Hydralazine 10 Mg Tablet PO 10 mg TID PARMINDER Administration Protocol Sodium Chloride 250 mls @ 15 mls/hr 02/05/25 16:53 02/11/25 16:00 IV 0 mls/hr .[id number] PRN Infusion Saline Flush Sodium Chloride 250 mls @ 15 mls/hr 02/05/25 16:53 IV .[id number] PRN Additional IVPB Infusion Norepinephrine Bitartrate 8 mg 250 mls @ 9.375 mls/hr 02/08/25 11:30 02/15/25 04:51 / Sodium Chloride CONT INF Not Given .[id number] [facility] Protocol 5 MCG/MIN Pantoprazole Sodium 40 mg/ 110 mls @ 330 mls/hr 02/08/25 12:30 02/14/25 07:51 Sodium Chloride IV Infused Q24 PARMINDER Infusion Dexmedetomidine HCl 1,000 mcg/ 250 mls @ 13.6 mls/hr 02/10/25 01:30 02/15/25 09:00 Sodium Chloride CONT INF 1 mcg/kg/hr .[id number] PARMINDER 27.2 mls/hr Titration Protocol 0.5 MCG/KG/HR Enteral Nutritional Formula 1,000 mls @ 30 mls/hr 02/14/25 15:30 02/14/25 18:11 Nepro Carb Steady GT 30 mls/hr .[id number] PARMINDER Administration Insulin Glargine 45 unit 02/14/25 10:00 02/14/25 21:43 Insulin Glargine-Yfgn 100 Unit/Ml Pen SC 45 unit BID PARMINDER Administration Insulin Human Lispro 0 unit 02/11/25 18:00 02/15/25 06:02 Insulin Lispro 100 Unit/Ml Insuln.Pen SC 6 units Q4 [facility] Administration Protocol Isosorbide Dinitrate 5 mg 02/06/25 10:00 02/14/25 21:46 Isosorbide Dn 10 Mg Tablet PO 5 mg BID PARMINDER Administration Protocol Polyethylene Glycol 17 gm 02/07/25 10:00 02/14/25 10:11 Polyethylene Glycol 3350 17 Gm Packet PO Not Given DAILY PARMINDER Senna/Docusate Sodium 2 tablet 02/07/25 10:00 02/14/25 21:47 Senna/Docusate Sodium 1 Tablet PO 2 tablet BID PARMINDER Administration Sodium Chloride 10 - 40 ml 02/05/25 16:13 02/15/25 08:19 0.9% Saline Lock 10 Ml Syringe IV 40 ml UD PRN Administration SALINE FLUSH Sodium Chloride 1,000 ml 02/15/25 07:15 02/15/25 08:18 0.9% Normal Saline 1,000 Ml Iv.Soln. OPERA.SITE 02/15/25 19:14 1,000 ml X1 PARMINDER Administration Sodium Chloride 200 ml 02/15/25 07:13 0.9% Normal Saline 1,000 Ml Iv.Soln. IV 02/15/25 19:14 X1 PRN to maintain SBP >90mmHg during Dialysis Lab / Micro Data 02/15/25 04:25 02/15/25 04:25 Labs: Laboratory Results - last 24 hr 02/14/25 10:08: POC Glucose 166 H 02/14/25 14:33: POC Glucose 175 H 02/14/25 14:48: Hep Bs Antigen Nonreactive 02/14/25 17:08: POC Glucose 169 H 02/14/25 21:40: POC Glucose 207 H 02/15/25 02:09: POC Glucose 232 H 02/15/25 04:25: WBC 12.1 H, RBC 3.91 L, Hgb 8.5 L, Hct 28.9 L, MCV 73.9 L, MCH 21.7 L, MCHC 29.4 L, RDW Std Deviation 47.8 H, RDW Coeff of Bulmaro 19.1 H, Plt Count 282, MPV 10.9, Immature Gran % (Auto) 0.600, Neut % (Auto) 80.8 H, Lymph % (Auto) 7.6 L, [place] % (Auto) 8.4, Eos % (Auto) 1.9, Baso % (Auto) 0.7, Absolute Neuts (auto) 9.8 H, Absolute Lymphs (auto) 0.92, Nucleated RBC % 0, Sodium 139, Potassium 3.0 L, Chloride 96 L, Carbon Dioxide 26.7, Anion Gap 17 H, BUN 119 H*, Creatinine 2.22 H, Estim Creat Clear Calc 26.18 L, Est GFR (MDRD) Non-Af 22 L, B UN/Creatinine Ratio 53.6 H, Glucose 237 H, Calcium 8.6, Phosphorus 4.0, Magnesium 2.1 02/15/25 06:01: POC Glucose 222 H ABG Data ABG results: ABG 02/15/25 05:06 Specimen Type ART Sample Site R Radial pH 7.52 H Bicarbonate Actual 32.7 H Total CO2 34 Base Excess 10 H O2 Saturation 96 O2 % 30.0 ABG pCO2 40.4 ABG pO2 72 L Harvey Test Positive Respiration Rate 14 O2 Delivery Device Adult Vent Vent Mode AC Tidal Volume 450.0 POC PEEP 5 Rhythm Strip Rhythm Strip: Sinus Rhythm Rate: 104 Imaging Radiology Impression Chest X-Ray 02/14/25 13:50 IMPRESSION: 1. Cardiomegaly with mild congestion. 2. Bilateral pleural effusions. Reading Location: [facility] Chest X-Ray 02/15/25 03:45 IMPRESSION: Endotracheal tube 2 cm above the asia. Nasogastric tube and side port crosses the diaphragm with tip extending off the inferior edge of the film. Small bilateral pleural effusions with bibasilar areas of atelectasis, partial passive collapse with developing infiltrate not excluded. Mild pulmonary vascular congestion. Right-sided dialysis catheter again noted. Reading Location: [facility] Assessment and Plan . Assessment and plan: ASSESSMENT: 1. Acute hypoxic and hypercapnic respiratory failure: Intubated 02/08. On minimal settings: 450/14/35/5. Much more awake today. Excellent volume removal overnight. SBT at noon after HD. 2. Confusion: suspect sedation effect + uremia. Was on fentanyl until 02/10. More awake last 72 hours. 3. CHF exac: EF of 15%. Also with moderate MR. Was on lasix gtt but now initiated on HD 02/14. 4. UTI: 2/2 Ecoli. Completed course of antibxs 5. ELIDA on CKD: Initiated on HD 02/13. Second session today. 6. FEN: TFs 7. Morbid Obesity 8. PX: SQ heparin Red Bustamante MD Critical Care Time: 50 min The entirety of this encounter was done via Telemedicine Physical Exam Narrative Physical Exam: Gen: NAD, obese, intubated HEENT: Pupils: =ETT in place Resp:Diminished BS. Mechanically ventilated CV: RRR. No m/g/r Abd: Soft, NT, ND Ext: No c/c. +edema (minimal/improving) Skin: No rashes? Neuro:awakens, follows, better today Subjective Subjective s/p WEBSITE PROGRAMMER - 4L removed. Getting HD now as well
--- NOTE | 2025-02-15 09:50 | PCM.PN.HOSP ---
Subjective Subjective More alert, was asking for water because of how dehydrated she has after Lasix drips and now dialysis Objective Data Objective Data Vital Signs: Vital Signs Temp Pulse Resp BP Pulse Ox O2 Del Method O2 Flow Rate 98.1 F 61 14 126/53 H 98 Mechanical Ventilator 8 02/15/25 08:05 02/15/25 09:30 02/15/25 09:30 02/15/25 09:30 02/15/25 09:30 02/15/25 09:30 02/14/25 14:18 FiO2 30 02/15/25 09:30 Oxygen Flow Rate (L/min) 8 Oxygen Delivery Method Mechanical Ventilator Weight: 235 lb 7.259 oz Body Mass Index (BMI) 39.2 Intake & Output: Intake and Output for Last 24 Hours 02/14/25 02/15/25 02/16/25 03:59 03:59 03:59 Intake Total 2739.75 / 2766.95 1192.16 / 1349.36 448.2 / 448.2 Output Total 1175 / 1175 5100 / 5100 175 / 175 Balance 1564.75 / 1591.95 -3907.84 / -3750.64 273.2 / 273.2 Lab / Micro Data 02/15/25 04:25 02/15/25 04:25 Labs: Laboratory Results - last 24 hr 02/14/25 10:08: POC Glucose 166 H 02/14/25 14:33: POC Glucose 175 H 02/14/25 14:48: Hep Bs Antigen Nonreactive 02/14/25 17:08: POC Glucose 169 H 02/14/25 21:40: POC Glucose 207 H 02/15/25 02:09: POC Glucose 232 H 02/15/25 04:25: WBC 12.1 H, RBC 3.91 L, Hgb 8.5 L, Hct 28.9 L, MCV 73.9 L, MCH 21.7 L, MCHC 29.4 L, RDW Std Deviation 47.8 H, RDW Coeff of Bulmaro 19.1 H, Plt Count 282, MPV 10.9, Immature Gran % (Auto) 0.600, Neut % (Auto) 80.8 H, Lymph % (Auto) 7.6 L, [place] % (Auto) 8.4, Eos % (Auto) 1.9, Baso % (Auto) 0.7, Absolute Neuts (auto) 9.8 H, Absolute Lymphs (auto) 0.92, Nucleated RBC % 0, Sodium 139, Potassium 3.0 L, Chloride 96 L, Carbon Dioxide 26.7, Anion Gap 17 H, BUN 119 H*, Creatinine 2.22 H, Estim Creat Clear Calc 26.18 L, Est GFR (MDRD) Non-Af 22 L, BUN/Creatinine Ratio 53.6 H, Glucose 237 H, Calcium 8.6, Phosphorus 4.0, Magnesium 2.1 02/15/25 06:01: POC Glucose 222 H Micro: Microbiology 02/05/25 12:15 Blood Culture (Wb) - Left Wrist Blood Culture - Final No growth in 5 days. 02/05/25 12:04 Blood Culture (Wb) - Right Hand Blood Culture - Final No growth in 5 days. 02/08/25 11:15 Sputum, Induced/Lukens Gram Stain - Final 02/08/25 11:15 Sputum, Induced/Lukens Respiratory Culture - Final Mixed normal respiratory dave. No Streptococcus pneumoniae, beta-hemolytic Streptococcus or Staphylococcus aureus isolated. 02/08/25 00:05 Stool Stool Occult Blood (TREVOR) - Final 02/05/25 11:20 Urine Catheter - Catheter Urine Culture - Final Presumptive E. coli 02/05/25 16:50 Nasal Secretion MRSA (PCR) - Final 02/05/25 16:50 Wound - Leg, Left Skin and Soft Tissue MRSA/MSSA (PCR - Final ABG Data ABG results: ABG 02/15/25 05:06 Specimen Type ART Sample Site R Radial pH 7.52 H Bicarbonate Actual 32.7 H Total CO2 34 Base Excess 10 H O2 Saturation 96 O2 % 30.0 ABG pCO2 40.4 ABG pO2 72 L Harvey Test Positive Respiration Rate 14 O2 Delivery Device Adult Vent Vent Mode AC Tidal Volume 450.0 POC PEEP 5 Radiography Diagnostic Testing: Radiology Impression Chest X-Ray 02/14/25 13:50 IMPRESSION: 1. Cardiomegaly with mild congestion. 2. Bilateral pleural effusions. Reading Location: [facility] Chest X-Ray 02/15/25 03:45 IMPRESSION: Endotracheal tube 2 cm above the asia. Nasogastric tube and side port crosses the diaphragm with tip extending off the inferior edge of the film. Small bilateral pleural effusions with bibasilar areas of atelectasis, partial passive collapse with developing infiltrate not excluded. Mild pulmonary vascular congestion. Right-sided dialysis catheter again noted. Reading Location: [facility] Rhythm Strip Rhythm Strip: Sinus Rhythm Rate: 104 Physical Exam Const General Appearance: intubated and patient mechanically ventilated HEENT normocephalic Eyes PERRL and conjunctivae normal Neck supple and no JVD Resp normal respiratory effort, no retractions and no use of accessory muscles Auscultation: Negative for crackles, rales, rhonchi or wheezes Cardio regular rate, regular rhythm, S1 normal heart sound, S2 normal heart sound and no murmurs GI soft to palpation and non-distended; Negative for hepatosplenomegaly Extremity General Extremity: edema Skin no rashes or lesions noted Neuro Sensorium / Orientation: sedated on vent Psych Appearance: intubated Assessment & Plan Assessment/Plan (1) Acute on chronic combined systolic (congestive) and diastolic (congestive) heart failure: (2) Cellulitis of right anterior lower leg: PLAN: Plan 1. Acute on chronic combined respiratory failure due to heart failure exacerbation: The patient is being admitted in ICU on BiPAP. ABG stat ordered. Discussed with the ED physician to watch for half an hour if she does not improve will need intubation prior to transfer to ICU. Currently on 6 L of oxygen. Lactic acidosis most likely due to pulmonary edema/hypoxia. Patient does not have signs and symptoms of sepsis. The patient not on home oxygen or NIPPV at home 02/06: ABG 7.21/50.7/133 at BiPAP 60% FiO2. Bicarb 22.Bicarb in BMP was 15.7 on 02/05. Probably bicarb and BMP are normal. Today's bicarb is 20. Continue BiPAP intermittently 02/07: The patient has been off BiPAP last night. On 4 to 5 L of oxygen. Gradually improving. 02/08: Patient also neutrophile flow oxygen, looks dyspneic at rest. ABG ordered. 02/09/2025: She was intubated yesterday currently FiO2 of 40% on the ventilator. Continue with Lasix drip 02/10/2025: Slow improvement on her FiO2 down to 45% today. Continue with the Lasix drip 02/11/2025: FiO2 down to 35% anticipate spontaneous breathing trial today by telemetry ICU 02/12/2025: Spontaneous breathing trial and see if we can extubate 02/14/2025: Plan for tunneled dialysis catheter today as Lasix is not achieving the level of diuresis necessary for extubation 02/15/2025: Had 2 L of fluid removed yesterday after her tunneled dialysis catheter was placed, will attempt to remove 2 or more liters today as well 2. Acute on chronic combined heart failure: BNP about 30,000. Chest x-ray initially reviewed and shows pulmonary edema, cardiomegaly and blunting of both CP angles. Twelve-lead EKG sinus tachycardia, 104 bpm, QRS 168, QTc 531 ms. LBBB. 02/06: Total urine output 455 mL, 325 since last night. Discussed with the veterinary attendant. Continue the same regimen 02/07: Urine output is low. On furosemide 20 mg/h. 1 dose of metolazone. Urine output 1050 mL documented yesterday. 300 mL since midnight. Bull Float Finisher consult reviewed and appreciated 02/08: Even on 20 mg Lasix per hour infusion, patient not putting good urine total 600 mL. Neurologist input needed. 02/09/2025: Continue with Lasix drip, currently intubated 02/13/2025: Renal function worsened today, will transition to bolus dosing of Lasix as she is down about 18 pounds since admission 3. Elevated troponin probably due to increased cardiac demand with suspicion of possible non-STEMI: Patient complained of nondescriptive chest pain. Lesion discussed with veterinary attendant Dr. Cardona. Recommended enoxaparin 1 dose. Troponin 218, 241. Third troponin pending. EKG as described above. Patient has CAD status post stents, on aspirin and statin. Hold carvedilol because of CHF exacerbation/fluid overload and resume once euvolemic. 4. ELIDA on CKD stage IV: Patient baseline creatinine runs around 2.0 as in January 2025. Admitting BUN/creatinine 58/2.32 therefore ELIDA on CKD stage IV. Bull Float Finisher consulted. Patient has hyperkalemia, 5.5, high anion gap metabolic acidosis, AG 19, bicarb 15. ABG ordered as mentioned above. Kayexalate and hyperkalemia cocktail ordered. Repeat BMP after 4 hours. Hold losartan metolazone. 02/06: BUN/creatinine 70/2.45. Continue furosemide drip. Bull Float Finisher on board. 02/07: Today's BMP is pending. 02/08: BUN/creatinine 86/2.6. BMP yesterday was 3.5. 02/09/2025: Appreciate nephrology's assistance, renal function appears to be stable with creatinine 2.48 02/12/2025: Continues to have slow improvement in her creatinine down to 2.37 today, BUN is up to 102 02/14/2025: Renal function is worse at 2.49 than it was in the , BUN continues to climb 02/13/2025: Continue with dialysis appreciate nephrology's assistance 5. Chronic severe anemia: H&H 8.0/27.9%. MCV 75 RDW elevated 17.0. Possible chronic iron deficiency anemia. Monitor CBC. Iron workup ordered for tomorrow a.m.. 02/07: Hemoglobin dropped to 7.2%. It is microcytic with elevated RDW. Stool for occult blood ordered. H&H ordered for in the evening. Patient only on baby aspirin. 02/08: H&H 7.7/28%. Stool for occult blood negative. B12 was normal 635 07/2024. TSH normal. Cortisol 11.2 normal in July 2024. Anemia workup ordered. Reticulocyte panel and LDH ordered 02/09/2025: Iron is 16 with a normal TIBC and iron saturation of 5% with normal ferritin, she likely has a combination of anemia of chronic disease with iron deficiency. She has been transfused today, can likely give IV iron tomorrow 02/10/2025: Hemoglobin today is 8.6, will recheck tomorrow if necessary can give some IV iron 02/11/2025: Continue with a dose of Venofer today 6. DM type II: Last A1c 5.2% in July 2024. Accu-Chek before meals and at bedtime with Humalog sliding scale coverage and hypoglycemia protocol. Most recent glucoses elevated, 259 BMP .135. 02/12/2025: Will continue to monitor and make adjustments as necessary 02/13/2025: We have adjusted her tube feeds so we will monitor her blood sugars closely and decrease insulin dosing if necessary 7. Chronic bilateral fifth metatarsal excision: Superficial ulcer of left lateral leg and contiguous cellulitis: MRSA wound and nasal screen ordered. IV cefazolin given in ED. IV ceftriaxone ordered 02/09/2025: Continue with antibiotics 02/11/2025: Completed antibiotics 8. Past history of CVA: History of remote left lacunar infarct. On aspirin and statin, continued 9. Depression and anxiety: On fluoxetine continue DVT: Heparin Charges/Coding Visit Charges Inpatient E&M: 97482 Subs Hosp L2
--- NOTE | 2025-02-15 09:55 | CASEMGMT ---
Social Work- SW participated in rounds with interdisciplinary care team. Pt shook her head in agreement that she is ready to be extubated when asked by software sales executive. Pt having GEODESY TEACHER during rounds; breathing trial to be completed following GEODESY TEACHER. SW remains available to follow for any discharge planning needs. ROSE Hein
[2025-02-15] MEDS: CHLORHEXIDINE GLUC 2% CLOTH 1 EACH TOWELETTE TOPICAL (11:14)
[2025-02-15] MEDS: Chlorhexidine 15 ML PO ×2 (11:14→22:26)
[2025-02-15] MEDS: Insulin Glargine-YFGN 100 UNIT/ML Pen 45 UNIT SC ×2 (11:14→22:31)
[2025-02-15 11:40] LABS: Bedside Glucose 201 mg/dL (74-106)
--- NOTE | 2025-02-15 12:23 | PCM.PN.BLA ---
Progress Note Patient seen and examined. Dialysis nursing previously reported and then again today reported the new dialysis catheter to be working well. There is a small amount of crusted blood from the tunneling exit site beneath the dressing but otherwise no signs of hematoma. Patient, while still intubated, is lucid and denies any discomfort from the catheter. With these reassurances surgery will sign off but remain available for any questions or concerns that arise in the future. Thank you for the opportunity to participate in Mrs. Myers's care. Visit Charges Inpatient E&M: 98026 Subs Hosp L1
[2025-02-15] MEDS: Isosorbide DN 10 MG Tablet 5 MG PO ×2 (12:54→22:28)
[2025-02-15] MEDS: Carvedilol 6.25 MG Tablet PO ×2 (12:54→17:58)
[2025-02-15] MEDS: FLUoxetine 10 MG Capsule PO (12:55)
[2025-02-15] MEDS: Aspirin E.C. 81 MG Tablet PO (12:55)
[2025-02-15] MEDS: Furosemide 40 MG/4 ML Vial IV ×2 (12:58→18:04)
[2025-02-15] MEDS: Pantoprazole Sodium 40 MG in 0.9% Normal Saline (100mL MB+) 100 ML 330 MG IV (13:05)
--- NOTE | 2025-02-15 14:38 | PCM.PN.REN ---
Subjective Subjective Remains intubated. Objective Data Objective Data Vital Signs: Vital Signs Temp Pulse Resp BP Pulse Ox O2 Del Method O2 Flow Rate 98.1 F 63 14 129/69 H 96 Mechanical Ventilator 8 02/15/25 12:05 02/15/25 13:00 02/15/25 13:00 02/15/25 13:00 02/15/25 13:00 02/15/25 13:00 02/14/25 14:18 FiO2 30 02/15/25 13:00 Oxygen Flow Rate (L/min) 8 Oxygen Delivery Method Mechanical Ventilator Weight: 103 kg Body Mass Index (BMI) 37.8 Intake & Output: Intake and Output for Last 24 Hours 02/13/25 02/14/25 02/15/25 23:59 23:59 23:59 Intake Total 1928.35 / 2884.45 1982.92 / 2140.12 905.8 / 905.8 Output Total 1175 / 1175 5100 / 5100 4205 / 4205 Balance 753.35 / 1709.45 -3117.08 / -2959.88 -3299.2 / -3299.2 Lab / Micro Data 02/15/25 04:25 02/15/25 04:25 Labs: Laboratory Results - last 24 hr 02/14/25 14:33: POC Glucose 175 H 02/14/25 14:48: Hep Bs Antigen Nonreactive 02/14/25 17:08: POC Glucose 169 H 02/14/25 21:40: POC Glucose 207 H 02/15/25 02:09: POC Glucose 232 H 02/15/25 04:25: WBC 12.1 H, RBC 3.91 L, Hgb 8.5 L, Hct 28.9 L, MCV 73.9 L, MCH 21.7 L, MCHC 29.4 L, RDW Std Deviation 47.8 H, RDW Coeff of Bulmaro 19.1 H, Plt Count 282, MPV 10.9, Immature Gran % (Auto) 0.600, Neut % (Auto) 80.8 H, Lymph % (Auto) 7.6 L, [place] % (Auto) 8.4, Eos % (Auto) 1.9, Baso % (Auto) 0.7, Absolute Neuts (auto) 9.8 H, Absolute Lymphs (auto) 0.92, Nucleated RBC % 0, Sodium 139, Potassium 3.0 L, Chloride 96 L, Carbon Dioxide 26.7, Anion Gap 17 H, BUN 119 H*, Creatinine 2.22 H, Estim Creat Clear Calc 26.18 L, Est GFR (MDRD) Non-Af 22 L, BUN/Creatinine Ratio 53.6 H, Glucose 237 H, Calcium 8.6, Phosphorus 4.0, Magnesium 2.1 02/15/25 06:01: POC Glucose 222 H 02/15/25 11:09: POC Glucose 201 H Micro: Microbiology 02/05/25 12:15 Blood Culture (Wb) - Left Wrist Blood Culture - Final No growth in 5 days. 02/05/25 12:04 Blood Culture (Wb) - Right Hand Blood Culture - Final No growth in 5 days. 02/08/25 11:15 Sputum, Induced/Lukens Gram Stain - Final 02/08/25 11:15 Sputum, Induced/Lukens Respiratory Culture - Final Mixed normal respiratory dave. No Streptococcus pneumoniae, beta-hemolytic Streptococcus or Staphylococcus aureus isolated. 02/08/25 00:05 Stool Stool Occult Blood (TREVOR) - Final 02/05/25 11:20 Urine Catheter - Catheter Urine Culture - Final Presumptive E. coli 02/05/25 16:50 Nasal Secretion MRSA (PCR) - Final 02/05/25 16:50 Wound - Leg, Left Skin and Soft Tissue MRSA/MSSA (PCR - Final ABG Data ABG results: ABG 02/15/25 05:06 Specimen Type ART Sample Site R Radial pH 7.52 H Bicarbonate Actual 32.7 H Total CO2 34 Base Excess 10 H O2 Saturation 96 O2 % 30.0 ABG pCO2 40.4 ABG pO2 72 L Harvey Test Positive Respiration Rate 14 O2 Delivery Device Adult Vent Vent Mode AC Tidal Volume 450.0 POC PEEP 5 Radiography Diagnostic Testing: Radiology Impression Chest X-Ray 02/15/25 03:45 IMPRESSION: Endotracheal tube 2 cm above the asia. Nasogastric tube and side port crosses the diaphragm with tip extending off the inferior edge of the film. Small bilateral pleural effusions with bibasilar areas of atelectasis, partial passive collapse with developing infiltrate not excluded. Mild pulmonary vascular congestion. Right-sided dialysis catheter again noted. Reading Location: [facility] Rhythm Strip Rhythm Strip: Sinus Rhythm Rate: 104 Physical Exam Narrative On ventilator support s1s2 no murmurs Diminished breath sounds abdomen soft Edema bilateral legs morillo + clear yellow urine in bag Assessment & Plan Assessment/Plan (1) ELIDA (acute kidney injury): (2) Chronic kidney disease (CKD): QUALIFIERS: Chronic kidney disease stage: stage 4 (GFR 15-29) Qualified Code(s): N18.4 - Chronic kidney disease, stage 4 (severe) PLAN: Plan Impression/Plan: Patient is a 74-year-old female with past history of type 2 diabetes mellitus, hypertension, CAD, ischemic cardiomyopathy with HFrEF (EF 15%), pulmonary hypertension, stroke, and hyperlipidemia. Patient presents to the hospital on 02/05/2025 with 1 week history of progressively worsening dyspnea and lower extremity edema. Patient was admitted to the hospital for treatment of acute hypoxic respiratory failure requiring NIV. Nephrology is following for ELIDA on CKD. -Hypervolemia acute kidney injury superimposed on CKD stage IV. Baseline SCr 1.80 to 2.00 mg/dL prior to this admission. Suspect ELIDA is secondary to cardiorenal syndrome. Started dialysis 02/14/2025. We removed about 2 L yesterday. Today UF alone with 4 L fluid removal. Chest x-ray this morning predialysis actually look better than yesterday. Unfortunately failed breathing trial again. Gets tachypneic and low volume. She is alert, awake hence unlikely uremic. Will plan for dialysis again tomorrow with more fluid removal. Breathing trial again tomorrow. Discussed with hospitalist.
[2025-02-15] MEDS: NEPRO 1,000 ML 30 ML GT (15:09)
[2025-02-15 15:41] LABS: Bedside Glucose 241 mg/dL (74-106)
--- NOTE | 2025-02-15 18:18 | NURSING ---
Patients son, Marcell, took home patients jewelry: 5 rings and 1 necklace
[2025-02-15 18:29] LABS: Bedside Glucose 208 mg/dL (74-106)
[2025-02-15] MEDS: Atorvastatin Calcium 40 MG Tablet PO (22:28)
[2025-02-15 22:54] LABS: Bedside Glucose 220 mg/dL (74-106)
[2025-02-16] VITALS (51 sets, daily range): BP systolic 99–196; BP diastolic 42–80; PULSE 55–72; RESP 14–35; TEMP 36.4–36.9; O2SAT 93–100; BMI 38.5; BMI 37.8
[2025-02-16] MEDS: Insulin Lispro 100 UNIT/ML INSULN.PEN SC ×3 (02:05→17:14)
[2025-02-16 02:22] LABS: Bedside Glucose 192 mg/dL (74-106)
[2025-02-16 05:53] LABS: Absolute Lymphocyte Count 1.18 X10^3/uL (0.83-4.51); Absolute Neutrophil Count 11.2 X10^3/uL (2.0-7.7); Basophil# 0.08 X10^3/uL; Basophil% 0.6 % (0-1); Eosinophil# 0.24 X10^3/uL; Eosinophils% 1.7 % (0-5); Hematocrit 28.9 % (37-47); Hemoglobin 8.7 g/dL (12.0-15.0); Lymphocyte # 1.18 X10^3/ul (0.83-4.51); Lymphocyte % 8.5 % (19-41); Mean Corp Hgb Conc 30.1 g/dL (32-36); Mean Corpuscular Hgb 22.2 pg (27.0-32.0); Mean Corpuscular Volume 73.7 fL (81-99); Mean Platelet Vol. 11.1 fl (6.2-12.0); Monocyte# 1.17 X10^3/uL; Monocyte% 8.4 % (0-10); NRBC Flagged by Analyzer 0 % (0-5); Neutrophil # 11.16 X10^3/uL (2.7-7.7); Neutrophil % 80.2 % (47-70); Platelet Count 257 K/mm3 (150-450); RBC Distribution Width CV 19.5 % (11.6-14.6); RBC Distribution Width SD 49.7 fl (35.1-43.9); Red Blood Count 3.92 M/mm3 (4.2-5.4); White Blood Count 13.9 K/mm3 (4.4-11.0)
[2025-02-16] MEDS: guaiFENesin 10 ML UDC (200MG/10ML) NG ×3 (06:02→21:55)
[2025-02-16] MEDS: hydrALAZINE 10 MG Tablet PO ×3 (06:02→21:58)
[2025-02-16] MEDS: Menthol/Lanolin/Calamine/Znox 113 GM Tube 1 APPLIC TOPICAL ×3 (06:03→21:57)
[2025-02-16 06:20] LABS: Bedside Glucose 153 mg/dL (74-106)
[2025-02-16 06:49] LABS: Magnesium 2.3 mg/dL (1.5-2.2); Phosphorus 4.7 mg/dL (2.7-4.5)
[2025-02-16] MEDS: Acetylcysteine 800 MG/4 ML VIAL.NEB. INHALATION (07:07)
[2025-02-16] MEDS: Albuterol 2.5 MG/3 ML VIAL.NEB. INHALATION ×3 (07:07→19:52)
[2025-02-16 08:12] LABS: Anion Gap 17 (5-15); BUN/Creat Ratio UNABLE TO CALCULATE RATIO (10-20); Calcium,Total 9.5 mg/dL (7.6-11.0); Carbon Dioxide 26.1 mmol/L (21.0-32.0); Chloride 96 mmol/L (98-108); Creatinine, Serum 2.79 mg/dL (0.70-1.20); EST Glomerular Filtration Rate 17 (>60); Estimated Creatinine Clearance 20.61 ml/min (50-250); Glucose 157 mg/dL (70-99); Potassium 3.4 mmol/L (3.3-5.1); Sodium Level 139 mmol/L (133-145)
[2025-02-16 08:32] LABS: BUN 130 mg/dL (4-19)
[2025-02-16] MEDS: PureFlow B 4K Dialysis Soln 1 BAG 6 BAG PF (08:56)
[2025-02-16] MEDS: 0.9% Normal Saline 1,000 ML IV.SOLN. 1000 ML OPERA.SITE (08:56)
[2025-02-16] MEDS: 0.9% Saline Lock 10 ML Syringe IV (09:00)
[2025-02-16] MEDS: Heparin 10,000 UNITS/10 ML Vial IV (09:00)
[2025-02-16] MEDS: dexMEDEtomidine 1,000 MCG in 0.9% Normal Saline (250mL Bag) 240 ML 27.2 MCG CONT INF ×3 (09:59→22:33)
--- NOTE | 2025-02-16 10:05 | PN.HOSP_ITS ---
Subjective Subjective Lightly sedated but alert and interactive, she follows simple commands Objective Data Objective Data Vital Signs: Vital Signs Temp Pulse Resp BP Pulse Ox O2 Del Method O2 Flow Rate 97.8 F 56 L 14 100/46 L 96 Mechanical Ventilator 95 02/16/25 08:00 02/16/25 09:45 02/16/25 09:45 02/16/25 09:45 02/16/25 09:45 02/16/25 09:45 02/15/25 15:15 FiO2 24 02/16/25 09:45 Oxygen Flow Rate (L/min) 95 Oxygen Delivery Method Mechanical Ventilator Weight: 231 lb 0.711 oz Body Mass Index (BMI) 38.5 Intake & Output: Intake and Output for Last 24 Hours 02/15/25 02/16/25 02/17/25 03:59 03:59 03:59 Intake Total 1192.16 / 1349.36 2121.20 / 2148.40 163.2 / 163.2 Output Total 5100 / 5100 4330 / 4330 125 / 125 Balance -3907.84 / -3750.64 -2208.80 / -2181.60 38.2 / 38.2 Lab / Micro Data 02/16/25 05:26 02/16/25 05:26 Labs: Laboratory Results - last 24 hr 02/15/25 11:09: POC Glucose 201 H 02/15/25 15:21: POC Glucose 241 H 02/15/25 17:57: POC Glucose 208 H 02/15/25 22:30: POC Glucose 220 H 02/16/25 02:00: POC Glucose 192 H 02/16/25 05:26: WBC 13.9 H, RBC 3.92 L, Hgb 8.7 L, Hct 28.9 L, MCV 73.7 L, MCH 22.2 L, MCHC 30.1 L, RDW Std Deviation 49.7 H, RDW Coeff of Bulmaro 19.5 H, Plt Count 257, MPV 11.1, Immature Gran % (Auto) 0.600, Neut % (Auto) 80.2 H, Lymph % (Auto) 8.5 L, [place] % (Auto) 8.4, Eos % (Auto) 1.7, Baso % (Auto) 0.6, Absolute Neuts (auto) 11.2 H, Absolute Lymphs (auto) 1.18, Nucleated RBC % 0, Sodium 139, Potassium 3.4, Chloride 96 L, Carbon Dioxide 26.1, Anion Gap 17 H, BUN 130 H*, C reatinine 2.79 H, Estim Creat Clear Calc 20.61 L, Est GFR (MDRD) Non-Af 17 L, B UN/Creatinine Ratio UNABLE TO CALCULATE L, Glucose 157 H, Calcium 9.5, P hosphorus 4.7 H, Magnesium 2.3 H 02/16/25 06:01: POC Glucose 153 H Micro: Microbiology 02/05/25 12:15 Blood Culture (Wb) - Left Wrist Blood Culture - Final No growth in 5 days. 02/05/25 12:04 Blood Culture (Wb) - Right Hand Blood Culture - Final No growth in 5 days. 02/08/25 11:15 Sputum, Induced/Lukens Gram Stain - Final 02/08/25 11:15 Sputum, Induced/Lukens Respiratory Culture - Final Mixed normal respiratory dave. No Streptococcus pneumoniae, beta-hemolytic Streptococcus or Staphylococcus aureus isolated. 02/08/25 00:05 Stool Stool Occult Blood (TREVOR) - Final 02/05/25 11:20 Urine Catheter - Catheter Urine Culture - Final Presumptive E. coli 02/05/25 16:50 Nasal Secretion MRSA (PCR) - Final 02/05/25 16:50 Wound - Leg, Left Skin and Soft Tissue MRSA/MSSA (PCR - Final Rhythm Strip Rhythm Strip: Sinus Rhythm Rate: 104 Physical Exam Const alert General Appearance: intubated and patient mechanically ventilated HEENT normocephalic Eyes PERRL and conjunctivae normal Neck supple and no JVD Resp normal respiratory effort, no retractions and no use of accessory muscles Auscultation: Negative for crackles, rales, rhonchi or wheezes Cardio regular rate, regular rhythm, S1 normal heart sound, S2 normal heart sound and no murmurs GI soft to palpation and non-distended; Negative for hepatosplenomegaly Extremity General Extremity: edema Skin no rashes or lesions noted Neuro Neuro Narrative: Follows simple commands Sensorium / Orientation: sedated on vent Psych Appearance: intubated Assessment & Plan Assessment/Plan (1) Acute on chronic combined systolic (congestive) and diastolic (congestive) heart failure: (2) Cellulitis of right anterior lower leg: PLAN: Plan 1. Acute on chronic combined respiratory failure due to heart failure exacerbation: The patient is being admitted in ICU on BiPAP. ABG stat ordered. Discussed with the ED physician to watch for half an hour if she does not improve will need intubation prior to transfer to ICU. Currently on 6 L of oxygen. Lactic acidosis most likely due to pulmonary edema/hypoxia. Patient does not have signs and symptoms of sepsis. The patient not on home oxygen or NIPPV at home 02/06: ABG 7.21/50.7/133 at BiPAP 60% FiO2. Bicarb 22.Bicarb in BMP was 15.7 on 02/05. Probably bicarb and BMP are normal. Today's bicarb is 20. Continue BiPAP intermittently 02/07: The patient has been off BiPAP last night. On 4 to 5 L of oxygen. Gradually improving. 02/08: Patient also neutrophile flow oxygen, looks dyspneic at rest. ABG ordered. 02/09/2025: She was intubated yesterday currently FiO2 of 40% on the ventilator. Continue with Lasix drip 02/10/2025: Slow improvement on her FiO2 down to 45% today. Continue with the Lasix drip 02/11/2025: FiO2 down to 35% anticipate spontaneous breathing trial today by telemetry ICU 02/12/2025: Spontaneous breathing trial and see if we can extubate 02/14/2025: Plan for tunneled dialysis catheter today as Lasix is not achieving the level of diuresis necessary for extubation 02/15/2025: Had 2 L of fluid removed yesterday after her tunneled dialysis catheter was placed, will attempt to remove 2 or more liters today as well 02/16/2025: Will trial spontaneous breathing trial however she continues to have small tidal volumes the hope is dialysis will remove enough fluid where she will be able to be extubated 2. Acute on chronic combined heart failure: BNP about 30,000. Chest x-ray initially reviewed and shows pulmonary edema, cardiomegaly and blunting of both CP angles. Twelve-lead EKG sinus tachycardia, 104 bpm, QRS 168, QTc 531 ms. LBBB. 02/06: Total urine output 455 mL, 325 since last night. Discussed with the nurses' association counselor. Continue the same regimen 02/07: Urine output is low. On furosemide 20 mg/h. 1 dose of metolazone. Urine output 1050 mL documented yesterday. 300 mL since midnight. Production Technologist consult reviewed and appreciated 02/08: Even on 20 mg Lasix per hour infusion, patient not putting good urine total 600 mL. Neurologist input needed. 02/09/2025: Continue with Lasix drip, currently intubated 02/13/2025: Renal function worsened today, will transition to bolus dosing of Lasix as she is down about 18 pounds since admission 3. Elevated troponin probably due to increased cardiac demand with suspicion of possible non-STEMI: Patient complained of nondescriptive chest pain. Lesion discussed with nurses' association counselor Dr. Cardona. Recommended enoxaparin 1 dose. Troponin 218, 241. Third troponin pending. EKG as described above. Patient has CAD status post stents, on aspirin and statin. Hold carvedilol because of CHF exacerbation/fluid overload and resume once euvolemic. 4. ELIDA on CKD stage IV: Patient baseline creatinine runs around 2.0 as in January 2025. Admitting BUN/creatinine 58/2.32 therefore ELIDA on CKD stage IV. Production Technologist consulted. Patient has hyperkalemia, 5.5, high anion gap metabolic acidosis, AG 19, bicarb 15. ABG ordered as mentioned above. Kayexalate and hyperkalemia cocktail ordered. Repeat BMP after 4 hours. Hold losartan metolazone. 02/06: BUN/creatinine 70/2.45. Continue furosemide drip. Production Technologist on board. 02/07: Today's BMP is pending. 02/08: BUN/creatinine 86/2.6. BMP yesterday was 3.5. 02/09/2025: Appreciate nephrology's assistance, renal function appears to be stable with creatinine 2.48 02/12/2025: Continues to have slow improvement in her creatinine down to 2.37 today, BUN is up to 102 02/14/2025: Renal function is worse at 2.49 than it was in the , BUN continues to climb 02/13/2025: Continue with dialysis appreciate nephrology's assistance 02/16/2025: Had about 4 L of fluid removed yesterday however creatinine and BUN are elevated today. Will monitor 5. Chronic severe anemia: H&H 8.0/27.9%. MCV 75 RDW elevated 17.0. Possible chronic iron deficiency anemia. Monitor CBC. Iron workup ordered for tomorrow a.m.. 02/07: Hemoglobin dropped to 7.2%. It is microcytic with elevated RDW. Stool for occult blood ordered. H&H ordered for in the evening. Patient only on baby aspirin. 02/08: H&H 7.7/28%. Stool for occult blood negative. B12 was normal 635 07/2024. TSH normal. Cortisol 11.2 normal in July 2024. Anemia workup ordered. Reticulocyte panel and LDH ordered 02/09/2025: Iron is 16 with a normal TIBC and iron saturation of 5% with normal ferritin, she likely has a combination of anemia of chronic disease with iron deficiency. She has been transfused today, can likely give IV iron tomorrow 02/10/2025: Hemoglobin today is 8.6, will recheck tomorrow if necessary can give some IV iron 02/11/2025: Continue with a dose of Venofer today 02/16/2025: Hemoglobin is stable in the eights, will dose with another dose of Venofer 6. DM type II: Last A1c 5.2% in July 2024. Accu-Chek before meals and at bedtime with Humalog sliding scale coverage and hypoglycemia protocol. Most recent glucoses elevated, 259 BMP 51.135. 02/12/2025: Will continue to monitor and make adjustments as necessary 02/13/2025: We have adjusted her tube feeds so we will monitor her blood sugars closely and decrease insulin dosing if necessary 7. Chronic bilateral fifth metatarsal excision: Superficial ulcer of left lateral leg and contiguous cellulitis: MRSA wound and nasal screen ordered. IV cefazolin given in ED. IV ceftriaxone ordered 02/09/2025: Continue with antibiotics 02/11/2025: Completed antibiotics 8. Past history of CVA: History of remote left lacunar infarct. On aspirin and statin, continued 9. Depression and anxiety: On fluoxetine continue DVT: Heparin Charges/Coding Visit Charges Inpatient E&M: 10701 Subs Hosp L2
[2025-02-16] MEDS: CHLORHEXIDINE GLUC 2% CLOTH 1 EACH TOWELETTE TOPICAL (10:11)
[2025-02-16] MEDS: Chlorhexidine 15 ML PO ×2 (10:11→22:06)
[2025-02-16 10:14] LABS: Bedside Glucose 103 mg/dL (74-106)
--- NOTE | 2025-02-16 11:15 | PN.CC_ITS ---
Objective Data Objective Data Vital Signs: Vital Signs Last response 3 Temperature 36.6 C 02/16/25 08:00 Temperature Source Temporal 02/16/25 08:00 Pulse Rate 58 L 02/16/25 11:00 Pulse Strength Weak (1+) 02/15/25 10:00 Respiratory Rate 15 02/16/25 11:00 Respiratory Effort Mechanically Ventilated 02/16/25 09:00 Respiratory Depth Normal 02/16/25 08:00 Respiratory Pattern Normal 02/16/25 08:00 Blood Pressure 128/61 H 02/16/25 11:00 Blood Pressure Mean 83 02/16/25 11:00 Blood Pressure Source Monitor 02/16/25 11:00 Blood Pressure Position Semi-Fowlers 02/16/25 11:00 Blood Pressure Location Right Forearm 02/16/25 11:00 Pulse Ox 100 02/16/25 11:00 Oxygen Delivery Method Mechanical Ventilator 02/16/25 11:00 Oxygen Flow Rate (L/min) 95 02/15/25 15:15 Fraction of Inspired Oxygen (FIO2) 24 02/16/25 11:00 I&O: I&O Last 24 Hours 3 02/15/25 02/15/25 02/16/25 11:59 23:59 11:59 Intake Total 741.4 / 2278.40 1514.12 / 2278.40 273.33 / 273.33 Output Total 175 / 4330 4155 / 4330 125 / 125 Balance 566.4 / -2051.60 -2640.88 / -2051.60 148.33 / 148.33 I&O: Total Stay 3 02/05/25 09:43 thru 02/16/25 10:00 Intake Total 73935.42 Output Total 67347 Balance -8898.58 Current Meds Ordered / Administered: Current meds ordered / Administered 3 Generic Name Dose Route Start Last Admin Trade Name Freq PRN Reason Stop Dose Admin Acetaminophen 650 mg 02/05/25 13:41 02/07/25 23:29 Acetaminophen 325 Mg Tablet PO 650 mg Q6H PRN PRN Administration Pain 1-10 Or Fever >100.7 Albuterol Sulfate 2.5 mg 02/10/25 11:30 02/16/25 07:07 Albuterol 2.5 Mg/3 Ml Vial.Neb. INHALATION 2.5 mg Q8H.RT PARMINDER Administration Aspirin 81 mg 02/06/25 08:00 02/15/25 12:55 Aspirin E.C. 81 Mg Tablet PO 81 mg BREAKFAST PARMINDER Administration Atorvastatin Calcium 40 mg 02/05/25 22:00 02/15/25 22:28 Atorvastatin Calcium 40 Mg Tablet PO 40 mg QHS PARMINDER Administration Calamine/Phenol 1 applic 02/11/25 22:00 02/16/25 06:03 Menthol/Lanolin/Calamine/Znox 113 Gm Tube TOPICAL 1 applic TID PARMINDER Administration Protocol Carvedilol 6.25 mg 02/05/25 19:30 02/15/25 17:58 Carvedilol 6.25 Mg Tablet PO 6.25 mg BIDCM PARMINDER Administration Protocol Chlorhexidine Gluconate 15 ml 02/10/25 10:00 02/16/25 10:11 Chlorhexidine 15 Ml PO 15 ml BID PARMINDER Administration Chlorhexidine Gluconate 1 each 02/13/25 10:00 02/16/25 10:11 Chlorhexidine Gluc 2% Cloth 1 Each Towelette TOPICAL 1 each DAILY PARMINDER Administration Fentanyl Citrate 50 mcg 02/11/25 11:33 Fentanyl 100 Mcg/2 Ml Ampul IV Q1H PRN PRN CPOT score > 3 Fluoxetine HCl 10 mg 02/06/25 10:00 02/15/25 12:55 Fluoxetine 10 Mg Capsule PO 10 mg DAILY PARMINDER Administration Furosemide 40 mg 02/13/25 18:00 02/15/25 18:04 Furosemide 40 Mg/4 Ml Vial IV 40 mg BIDLX PARMINDER Administration Protocol Guaifenesin 10 ml 02/10/25 14:00 02/16/25 06:02 Guaifenesin 10 Ml Udc (200mg/10ml) NG 10 ml Q8H PARMINDER Administration Hemodialysis Solution 6 bag 02/16/25 07:45 02/16/25 08:56 Pureflow B 4k Dialysis Soln 1 Bag PF 02/16/25 19:35 6 bag UD PARMINDER Administration Protocol Heparin Sodium (Porcine) 5,000 unit 02/08/25 14:00 02/13/25 22:45 Heparin Injection (Vial) 5,000 Unit/Ml Vial SC Not Given Q8 PARMINDER Heparin Sodium (Porcine) 1,000 - 3,000 units 02/16/25 07:34 02/16/25 09:00 Heparin 10,000 Units/10 Ml Vial IV 02/16/25 19:34 1,600 units X1 PRN Administration HD catheter closing Hydralazine HCl 10 mg 02/06/25 08:30 02/16/25 06:02 Hydralazine 10 Mg Tablet PO 10 mg TID [facility] Administration Protocol Sodium Chloride 250 mls @ 15 mls/hr 02/05/25 16:53 02/11/25 16:00 IV 0 mls/hr .[id number] PRN Infusion Saline Flush Sodium Chloride 250 mls @ 15 mls/hr 02/05/25 16:53 IV .[id number] PRN Additional IVPB Infusion Norepinephrine Bitartrate 8 mg 250 mls @ 9.375 mls/hr 02/08/25 11:30 02/16/25 06:02 / Sodium Chloride CONT INF Not Given .[id number] PARMINDER Protocol 5 MCG/MIN Pantoprazole Sodium 40 mg/ 110 mls @ 330 mls/hr 02/08/25 12:30 02/15/25 13:39 Sodium Chloride IV Infused Q24 PARMINDER Infusion Dexmedetomidine HCl 1,000 mcg/ 250 mls @ 13.6 mls/hr 02/10/25 01:30 02/16/25 10:00 Sodium Chloride CONT INF 1 mcg/kg/hr .[id number] PARMINDER 27.2 mls/hr Titration Protocol 0.5 MCG/KG/HR Enteral Nutritional Formula 1,000 mls @ 30 mls/hr 02/14/25 15:30 02/16/25 00:16 Nepro Carb Steady GT Not Given .[id number] [facility] Ferric Sodium Gluconate 270 mls @ 135 mls/hr 02/16/25 11:15 Complex 250 mg/ Sodium IV 02/16/25 13:14 Chloride X1 ONE Insulin Glargine 35 unit 02/16/25 10:00 02/16/25 11:12 Insulin Glargine-Yfgn 100 Unit/Ml Pen SC Not Given BID [facility] Insulin Human Lispro 0 unit 02/16/25 12:00 Insulin Lispro 100 Unit/Ml Insuln.Pen SC Q6 [facility] Protocol Isosorbide Dinitrate 5 mg 02/06/25 10:00 02/15/25 22:28 Isosorbide Dn 10 Mg Tablet PO 5 mg BID [facility] Administration Protocol Polyethylene Glycol 17 gm 02/07/25 10:00 02/15/25 11:15 Polyethylene Glycol 3350 17 Gm Packet PO Not Given DAILY PARMINDER Senna/Docusate Sodium 2 tablet 02/07/25 10:00 02/15/25 22:27 Senna/Docusate Sodium 1 Tablet PO Not Given BID PARMINDER Sodium Chloride 10 - 40 ml 02/05/25 16:13 02/16/25 09:00 0.9% Saline Lock 10 Ml Syringe IV 40 ml UD PRN Administration SALINE FLUSH Sodium Chloride 1,000 ml 02/16/25 07:35 02/16/25 08:56 0.9% Normal Saline 1,000 Ml Iv.Soln. OPERA.SITE 02/16/25 19:34 1,000 ml X1 PARMINDER Administration Sodium Chloride 200 ml 02/16/25 07:34 0.9% Normal Saline 1,000 Ml Iv.Soln. IV 02/16/25 19:34 X1 PRN to maintain SBP >90mmHg during Dialysis Lab / Micro Data Attestation: I reviewed the patient's lab results. 02/16/25 05:26 02/16/25 05:26 Labs: Laboratory Results - last 24 hr 02/15/25 11:09: POC Glucose 201 H 02/15/25 15:21: POC Glucose 241 H 02/15/25 17:57: POC Glucose 208 H 02/15/25 22:30: POC Glucose 220 H 02/16/25 02:00: POC Glucose 192 H 02/16/25 05:26: WBC 13.9 H, RBC 3.92 L, Hgb 8.7 L, Hct 28.9 L, MCV 73.7 L, MCH 22.2 L, MCHC 30.1 L, RDW Std Deviation 49.7 H, RDW Coeff of Bulmaro 19.5 H, Plt Count 257, MPV 11.1, Immature Gran % (Auto) 0.600, Neut % (Auto) 80.2 H, Lymph % (Auto) 8.5 L, [place] % (Auto) 8.4, Eos % (Auto) 1.7, Baso % (Auto) 0.6, Absolute Neuts (auto) 11.2 H, Absolute Lymphs (auto) 1.18, Nucleated RBC % 0, Sodium 139, Potassium 3.4, Chloride 96 L, Carbon Dioxide 26.1, Anion Gap 17 H, BUN 130 H*, C reatinine 2.79 H, Estim Creat Clear Calc 20.61 L, Est GFR (MDRD) Non-Af 17 L, B UN/Creatinine Ratio UNABLE TO CALCULATE L, Glucose 157 H, Calcium 9.5, P hosphorus 4.7 H, Magnesium 2.3 H 02/16/25 06:01: POC Glucose 153 H 02/16/25 09:55: POC Glucose 103 Rhythm Strip Rhythm Strip: Sinus Rhythm Rate: 104 Imaging CXR reviewed, effusions better and edema better Assessment and Plan . Assessment and plan: ICU Problem List: hypoxemic respiratory failure, acute CKD into ESRD requiring HD metabolic encephalopathy prolonged mechanical ventilation Plan: Recommend on site staff initiated GOC discussion with family re: tracheostomy will repeat SAT and SBT after HD today, but given serial SBT trial results, successful extubation seems less likely precedex at 1mcg/kg/hr Armando Rangel MD [facility] Critical Care Time: 55 mimn The entirety of this encounter was done via Telemedicine Physical Exam Narrative chronically ill appearing nontoxic appearing LAZO as mentioned above, no facial asymmetry or CVA signs However, MMT 2-3/5 on L and 3-4/5 on right Subjective Subjective CC: could not obtain 2/2 intubation, mech vent, sedation HPI: patient has failed SBT serially since 02/11 2/2 tachypnea and low Vt. LAZO and able to follow commands otherwsie ROS could not be obtained 2/2 the above
[2025-02-16] MEDS: Sodium Ferric Gluconat/Sucrose 250 MG in 0.9% Normal Saline (250mL Bag) 250 ML 135 MG IV (11:39)
[2025-02-16] MEDS: Isosorbide DN 10 MG Tablet 5 MG PO ×2 (12:16→21:54)
[2025-02-16] MEDS: FLUoxetine 10 MG Capsule PO (12:17)
[2025-02-16] MEDS: Furosemide 40 MG/4 ML Vial IV ×2 (12:17→17:07)
[2025-02-16] MEDS: Polyethylene Glycol 3350 17 GM PACKET PO (12:17)
[2025-02-16] MEDS: Senna/Docusate Sodium 1 Tablet 2 TABLET PO ×2 (12:17→21:54)
[2025-02-16 12:32] LABS: CPK Total, Creatine Kinase 34 U/L (24-195)
--- NOTE | 2025-02-16 12:52 | CPS ---
Started CPAP Trial @1226, RR stayed mostly in mid 30's, TV between 150-360 but mostly in low to mid [address] Cardona ordered pt to go back on AC and pt was put back on @1252.
[2025-02-16 12:56] LABS: Bedside Glucose 143 mg/dL (74-106)
--- NOTE | 2025-02-16 13:55 | PN.RENAL_ITS ---
Subjective Subjective no new events alert awake on ventilator minimal Fio2 and PEEP Objective Data Objective Data Vital Signs: Vital Signs Temp Pulse Resp BP Pulse Ox O2 Del Method O2 Flow Rate 97.6 F L 59 L 19 H 124/56 H 98 Mechanical Ventilator 95 02/16/25 11:55 02/16/25 11:55 02/16/25 11:55 02/16/25 11:55 02/16/25 11:55 02/16/25 13:00 02/15/25 15:15 FiO2 24 02/16/25 13:00 Oxygen Flow Rate (L/min) 95 Oxygen Delivery Method Mechanical Ventilator Weight: 102.8 kg Body Mass Index (BMI) 37.8 Intake & Output: Intake and Output for Last 24 Hours 02/14/25 02/15/25 02/16/25 23:59 23:59 23:59 Intake Total 1982.92 / 2140.12 2255.52 / 2278.40 314.14 / 314.14 Output Total 5100 / 5100 4330 / 4330 2125 / 2125 Balance -3117.08 / -2959.88 -2074.48 / -2051.60 -1810.86 / -1810.86 Lab / Micro Data 02/16/25 05:26 02/16/25 05:26 Labs: Laboratory Results - last 24 hr 02/15/25 15:21: POC Glucose 241 H 02/15/25 17:57: POC Glucose 208 H 02/15/25 22:30: POC Glucose 220 H 02/16/25 02:00: POC Glucose 192 H 02/16/25 05:26: WBC 13.9 H, RBC 3.92 L, Hgb 8.7 L, Hct 28.9 L, MCV 73.7 L, MCH 22.2 L, MCHC 30.1 L, RDW Std Deviation 49.7 H, RDW Coeff of Bulmaro 19.5 H, Plt Count 257, MPV 11.1, Immature Gran % (Auto) 0.600, Neut % (Auto) 80.2 H, Lymph % (Auto) 8.5 L, [place] % (Auto) 8.4, Eos % (Auto) 1.7, Baso % (Auto) 0.6, Absolute Neuts (auto) 11.2 H, Absolute Lymphs (auto) 1.18, Nucleated RBC % 0, Sodium 139, Potassium 3.4, Chloride 96 L, Carbon Dioxide 26.1, Anion Gap 17 H, BUN 130 H*, C reatinine 2.79 H, Estim Creat Clear Calc 20.61 L, Est GFR (MDRD) Non-Af 17 L, B UN/Creatinine Ratio UNABLE TO CALCULATE L, Glucose 157 H, Calcium 9.5, P hosphorus 4.7 H, Magnesium 2.3 H, Total Creatine Kinase 34 02/16/25 06:01: POC Glucose 153 H 02/16/25 09:55: POC Glucose 103 02/16/25 12:35: POC Glucose 143 H Micro: Microbiology 02/05/25 12:15 Blood Culture (Wb) - Left Wrist Blood Culture - Final No growth in 5 days. 02/05/25 12:04 Blood Culture (Wb) - Right Hand Blood Culture - Final No growth in 5 days. 02/08/25 11:15 Sputum, Induced/Lukens Gram Stain - Final 02/08/25 11:15 Sputum, Induced/Lukens Respiratory Culture - Final Mixed normal respiratory dave. No Streptococcus pneumoniae, beta-hemolytic Streptococcus or Staphylococcus aureus isolated. 02/08/25 00:05 Stool Stool Occult Blood (TREVOR) - Final 02/05/25 11:20 Urine Catheter - Catheter Urine Culture - Final Presumptive E. coli 02/05/25 16:50 Nasal Secretion MRSA (PCR) - Final 02/05/25 16:50 Wound - Leg, Left Skin and Soft Tissue MRSA/MSSA (PCR - Final Radiography Diagnostic Testing: Radiology Impression Chest X-Ray 02/15/25 03:45 IMPRESSION: Endotracheal tube 2 cm above the asia. Nasogastric tube and side port crosses the diaphragm with tip extending off the inferior edge of the film. Small bilateral pleural effusions with bibasilar areas of atelectasis, partial passive collapse with developing infiltrate not excluded. Mild pulmonary vascular congestion. Right-sided dialysis catheter again noted. Reading Location: [facility] Rhythm Strip Rhythm Strip: Sinus Rhythm Rate: 104 Physical Exam Narrative On ventilator support s1s2 no murmurs Diminished breath sounds abdomen soft Edema bilateral legs morillo + clear yellow urine in bag Assessment & Plan Assessment/Plan (1) ELIDA (acute kidney injury): (2) Chronic kidney disease (CKD): QUALIFIERS: Chronic kidney disease stage: stage 4 (GFR 15-29) Q ualified Code(s): N18.4 - Chronic kidney disease, stage 4 (severe) PLAN: Plan Impression/Plan: Patient is a 74-year-old female with past history of type 2 diabetes mellitus, hypertension, CAD, ischemic cardiomyopathy with HFrEF (EF 15%), pulmonary hypertension, stroke, and hyperlipidemia. Patient presents to the hospital on 02/05/2025 with 1 week history of progressively worsening dyspnea and lower extremity edema. Patient was admitted to the hospital for treatment of acute hypoxic respiratory failure requiring NIV. Nephrology is following for ELIDA on CKD. -Hypervolemia acute kidney injury superimposed on CKD stage IV. Baseline SCr 1.80 to 2.00 mg/dL prior to this admission. Suspect ELIDA is secondary to cardiorenal syndrome. Started dialysis 02/14/2025. UF 02/15 4L HD today. will plan for HD and fluid removal likely extubation attempt will reassess tomorrow likely HD tomorrow Dr Rodriguez is covering weekend
[2025-02-16] MEDS: Pantoprazole Sodium 40 MG in 0.9% Normal Saline (100mL MB+) 100 ML 330 MG IV (14:36)
[2025-02-16] MEDS: NEPRO 1,000 ML 30 ML GT (14:37)
[2025-02-16] MEDS: Carvedilol 6.25 MG Tablet PO (17:07)
[2025-02-16 17:35] LABS: Bedside Glucose 200 mg/dL (74-106)
[2025-02-16] MEDS: Insulin Glargine-YFGN 100 UNIT/ML Pen 35 UNIT SC (21:55)
[2025-02-16] MEDS: Atorvastatin Calcium 40 MG Tablet PO (21:55)
[2025-02-16 22:07] LABS: Bedside Glucose 224 mg/dL (74-106)
[2025-02-17] VITALS (48 sets, daily range): BP systolic 106–219; BP diastolic 41–79; PULSE 51–66; RESP 14–26; TEMP 36.4–36.9; O2SAT 93–100; BMI 38.9; BMI 38.2
[2025-02-17] MEDS: Insulin Lispro 100 UNIT/ML INSULN.PEN SC ×5 (00:19→23:29)
[2025-02-17 00:49] LABS: Bedside Glucose 240 mg/dL (74-106)
[2025-02-17] MEDS: Albuterol 2.5 MG/3 ML VIAL.NEB. INHALATION ×3 (03:52→23:02)
[2025-02-17 04:36] LABS: Absolute Lymphocyte Count 1.14 X10^3/uL (0.83-4.51); Basophil# 0.08 X10^3/uL; Basophil% 0.5 % (0-1); Eosinophils% 1.3 % (0-5); Hematocrit 30.7 % (37-47); Lymphocyte # 1.14 X10^3/ul (0.83-4.51); Lymphocyte % 7.2 % (19-41); Mean Corp Hgb Conc 29.3 g/dL (32-36); Mean Corpuscular Volume 74.9 fL (81-99); Mean Platelet Vol. 10.8 fl (6.2-12.0); Monocyte# 1.26 X10^3/uL; NRBC Flagged by Analyzer 0 % (0-5); Neutrophil # 12.97 X10^3/uL (2.7-7.7); Neutrophil % 82.4 % (47-70); Platelet Count 323 K/mm3 (150-450); RBC Distribution Width CV 19.9 % (11.6-14.6); RBC Distribution Width SD 51.8 fl (35.1-43.9); White Blood Count 15.8 K/mm3 (4.4-11.0)
[2025-02-17 05:12] LABS: Anion Gap 15 (5-15); BUN 80 mg/dL (4-19); Calcium,Total 9.5 mg/dL (7.6-11.0); Carbon Dioxide 22.8 mmol/L (21.0-32.0); Chloride 97 mmol/L (98-108); Creatinine, Serum 2.35 mg/dL (0.70-1.20); EST Glomerular Filtration Rate 21 (>60); Estimated Creatinine Clearance 24.22 ml/min (50-250); Glucose 256 mg/dL (70-99); Potassium 3.9 mmol/L (3.3-5.1); Sodium Level 135 mmol/L (133-145)
[2025-02-17] MEDS: hydrALAZINE 10 MG Tablet PO ×3 (06:26→21:10)
[2025-02-17] MEDS: Menthol/Lanolin/Calamine/Znox 113 GM Tube 1 APPLIC TOPICAL ×2 (06:27→21:10)
[2025-02-17] MEDS: guaiFENesin 10 ML UDC (200MG/10ML) NG ×3 (06:27→21:10)
[2025-02-17 07:01] LABS: Bedside Glucose 221 mg/dL (74-106)
[2025-02-17] MEDS: dexMEDEtomidine 1,000 MCG in 0.9% Normal Saline (250mL Bag) 240 ML 27.2 MCG CONT INF ×2 (07:33→17:21)
--- NOTE | 2025-02-17 08:00 | RAD_ITS ---
PROCEDURE: CHEST 1 VIEW (PORTABLE) 02/17/2025 REASON FOR EXAM: INTUBATED TECHNIQUE: Frontal view of the chest. COMPARISON: 02/15/2025 FINDINGS: Endotracheal tube with tip 3.3 cm above the asia. Enteric tube in appropriate position. Right IJ double-lumen hemodialysis catheter. Stable trace bilateral pleural effusions with bibasilar subsegmental atelectasis. Right lower lobe infiltrate not excluded. Mild pulmonary vascular congestion. Aortic arch atherosclerosis. RAD/Chest 1 View (Portable) IMPRESSION: Support lines are in appropriate position. Lung findings are grossly unchanged . Reading Location: [id number]
[2025-02-17] MEDS: 0.9% Saline Lock 10 ML Syringe IV (08:33)
[2025-02-17] MEDS: 0.9% Normal Saline 1,000 ML IV.SOLN. 1000 ML OPERA.SITE (08:33)
[2025-02-17] MEDS: Heparin 10,000 UNITS/10 ML Vial IV (08:33)
[2025-02-17] MEDS: PureFlow B 3K Dialysis Soln 1 BAG 6 BAG PF (08:33)
--- NOTE | 2025-02-17 08:54 | PN.CC_ITS ---
Objective Data Objective Data Vital Signs: Vital Signs Last response 3 Temperature 36.6 C 02/17/25 07:00 Temperature Source Temporal 02/17/25 07:00 Pulse Rate 64 02/17/25 08:15 Pulse Strength Weak (1+) 02/16/25 10:00 Respiratory Rate 26 H 02/17/25 08:15 Respiratory Effort Mechanically Ventilated 02/17/25 05:00 Respiratory Depth Normal 02/17/25 05:00 Respiratory Pattern Normal 02/17/25 08:15 Blood Pressure 116/50 L 02/17/25 08:00 Blood Pressure Mean 72 02/17/25 08:00 Blood Pressure Source Monitor 02/17/25 08:00 Blood Pressure Position Semi-Fowlers 02/17/25 08:00 Blood Pressure Location Right Arm 02/17/25 08:00 Pulse Ox 94 02/17/25 08:15 Oxygen Delivery Method Mechanical Ventilator 02/17/25 08:00 Oxygen Flow Rate (L/min) 95 02/15/25 15:15 Fraction of Inspired Oxygen (FIO2) 02/17/25 08:00 I&O: I&O Last 24 Hours 3 02/16/25 02/16/25 02/17/25 11:59 23:59 11:59 Intake Total 307.34 / 1333.88 1026.54 / 1333.88 792.84 / 792.84 Output Total 2125 / 2300 175 / 2300 60 / 60 Balance -1817.66 / -966.12 851.54 / -966.12 732.84 / 732.84 I&O: Total Stay 3 02/05/25 09:43 thru 02/17/25 08:15 Intake Total 22056.81 Output Total 43844 Balance -9280.19 Current Meds Ordered / Administered: Current meds ordered / Administered 3 Generic Name Dose Route Start Last Admin Trade Name Freq PRN Reason Stop Dose Admin Acetaminophen 650 mg 02/05/25 13:41 02/07/25 23:29 Acetaminophen 325 Mg Tablet PO 650 mg Q6H PRN PRN Administration Pain 1-10 Or Fever >100.7 Albuterol Sulfate 2.5 mg 02/10/25 11:30 02/17/25 03:52 Albuterol 2.5 Mg/3 Ml Vial.Neb. INHALATION 2.5 mg Q8H.RT PARMINDER Administration Aspirin 81 mg 05/13/25 08:00 02/16/25 12:18 Aspirin E.C. 81 Mg Tablet PO Not Given BREAKFAST [facility] Atorvastatin Calcium 40 mg 02/05/25 22:00 02/16/25 21:55 Atorvastatin Calcium 40 Mg Tablet PO 40 mg QHS PARMINDER Administration Calamine/Phenol 1 applic 02/11/25 22:00 02/17/25 06:27 Menthol/Lanolin/Calamine/Znox 113 Gm Tube TOPICAL 1 applic TID PARMINDER Administration Protocol Carvedilol 6.25 mg 02/05/25 19:30 02/16/25 17:07 Carvedilol 6.25 Mg Tablet PO 6.25 mg BIDCM PARMINDER Administration Protocol Chlorhexidine Gluconate 15 ml 02/10/25 10:00 02/16/25 22:06 Chlorhexidine 15 Ml PO 15 ml BID PARMINDER Administration Chlorhexidine Gluconate 1 each 02/13/25 10:00 02/16/25 10:11 Chlorhexidine Gluc 2% Cloth 1 Each [place] TOPICAL 1 each DAILY PARMINDER Administration Fentanyl Citrate 50 mcg 02/11/25 11:33 Fentanyl 100 Mcg/2 Ml Ampul IV Q1H PRN PRN CPOT score > 3 Fluoxetine HCl 10 mg 02/06/25 10:00 02/16/25 12:17 Fluoxetine 10 Mg Capsule PO 10 mg DAILY PARMINDER Administration Furosemide 40 mg 02/13/25 18:00 02/16/25 17:07 Furosemide 40 Mg/4 Ml Vial IV 40 mg BIDLX PARMINDER Administration Protocol Guaifenesin 10 ml 02/10/25 14:00 02/17/25 06:27 Guaifenesin 10 Ml Udc (200mg/10ml) NG 10 ml Q8H PARMINDER Administration Hemodialysis Solution 6 bag 02/17/25 07:00 02/17/25 08:33 Pureflow B 3k Dialysis Soln 1 Bag PF 02/17/25 23:20 6 bag UD PARMINDER Administration Protocol Heparin Sodium (Porcine) 5,000 unit 02/08/25 14:00 02/13/25 22:45 Heparin Injection (Vial) 5,000 Unit/Ml Vial SC Not Given Q8 PARMINDER Heparin Sodium (Porcine) 1,000 - 3,000 units 02/17/25 07:00 02/17/25 08:33 Heparin 10,000 Units/10 Ml Vial IV 02/17/25 23:22 1,600 units X1 PRN Administration HD catheter closing Hydralazine HCl 10 mg 02/06/25 08:30 02/17/25 06:26 Hydralazine 10 Mg Tablet PO 10 mg TID PARMINDER Administration Protocol Sodium Chloride 250 mls @ 15 mls/hr 02/05/25 16:53 02/11/25 16:00 IV 0 mls/hr .[id number] PRN Infusion Saline Flush Sodium Chloride 250 mls @ 15 mls/hr 02/05/25 16:53 IV .[id number] PRN Additional IVPB Infusion Norepinephrine Bitartrate 8 mg 250 mls @ 9.375 mls/hr 02/08/25 11:30 02/16/25 06:02 / Sodium Chloride CONT INF Not Given .[id number] PARMINDER Protocol 5 MCG/MIN Pantoprazole Sodium 40 mg/ 110 mls @ 330 mls/hr 02/08/25 12:30 02/16/25 14:57 Sodium Chloride IV Infused Q24 PARMINDER Infusion Dexmedetomidine HCl 1,000 mcg/ 250 mls @ 13.6 mls/hr 02/10/25 01:30 02/17/25 08:15 Sodium Chloride CONT INF 0.5 mcg/kg/hr .[id number] PARMINDER 13.6 mls/hr Titration Protocol 0.5 MCG/KG/HR Enteral Nutritional Formula 1,000 mls @ 30 mls/hr 02/14/25 15:30 02/17/25 08:15 Nepro Carb Steady GT 0 mls/hr .[id number] PARMINDER Infusion Insulin Glargine 35 unit 02/16/25 10:00 02/16/25 21:55 Insulin Glargine-Yfgn 100 Unit/Ml Pen SC 35 unit BID PARMINDER Administration Insulin Human Lispro 0 unit 02/16/25 12:00 02/17/25 06:25 Insulin Lispro 100 Unit/Ml Insuln.Pen SC 4 u Q6 PARMINDER Administration Protocol Isosorbide Dinitrate 5 mg 02/06/25 10:00 02/16/25 21:54 Isosorbide Dn 10 Mg Tablet PO 5 mg BID PARMINDER Administration Protocol Polyethylene Glycol 17 gm 02/07/25 10:00 02/16/25 12:17 Polyethylene Glycol 3350 17 Gm Packet PO 17 gm DAILY PARMINDER Administration Senna/Docusate Sodium 2 tablet 05/14/25 10:00 02/16/25 21:54 Senna/Docusate Sodium 1 Tablet PO 2 tablet BID PARMINDER Administration Sodium Chloride 10 - 40 ml 02/05/25 16:13 02/17/25 08:33 0.9% Saline Lock 10 Ml Syringe IV 40 ml UD PRN Administration SALINE FLUSH Sodium Chloride 1,000 ml 02/17/25 07:00 02/17/25 08:33 0.9% Normal Saline 1,000 Ml Iv.Soln. OPERA.SITE 02/17/25 14:21 1,000 ml X1 PARMINDER Administration Sodium Chloride 200 ml 02/17/25 07:00 0.9% Normal Saline 1,000 Ml Iv.Soln. IV 02/17/25 23:21 X1 PRN to maintain SBP >90mmHg during Dialysis Lab / Micro Data Attestation: I reviewed the patient's lab results. 02/17/25 04:15 02/17/25 04:15 Labs: Laboratory Results - last 24 hr 02/16/25 05:26: Total Creatine Kinase 34 02/16/25 09:55: POC Glucose 103 02/16/25 12:35: POC Glucose 143 H 02/16/25 17:13: POC Glucose 200 H 02/16/25 21:45: POC Glucose 224 H 02/17/25 00:17: POC Glucose 240 H 02/17/25 04:15: WBC 15.8 H, RBC 4.10 L, Hgb 9.0 L, Hct 30.7 L, MCV 74.9 L, MCH 22.0 L, MCHC 29.3 L, RDW Std Deviation 51.8 H, RDW Coeff of Bulmaro 19.9 H, Plt Count 323, MPV 10.8, Immature Gran % (Auto) 0.600, Neut % (Auto) 82.4 H, Lymph % (Auto) 7.2 L, [place] % (Auto) 8.0, Eos % (Auto) 1.3, Baso % (Auto) 0.5, Absolute Neuts (auto) 13.0 H, Absolute Lymphs (auto) 1.14, Nucleated RBC % 0, Sodium 135, Potassium 3.9, Chloride 97 L, Carbon Dioxide 22.8, Anion Gap 15, BUN 80 H, C reatinine 2.35 H, Estim Creat Clear Calc 24.22 L, Est GFR (MDRD) Non-Af 21 L, B UN/Creatinine Ratio 34.0 H, Glucose 256 H, Calcium 9.5 02/17/25 06:23: POC Glucose 221 H Rhythm Strip Rhythm Strip: Sinus Rhythm Rate: 104 Imaging Radiology Impression Chest X-Ray 02/15/25 03:45 IMPRESSION: Endotracheal tube 2 cm above the asia. Nasogastric tube and side port crosses the diaphragm with tip extending off the inferior edge of the film. Small bilateral pleural effusions with bibasilar areas of atelectasis, partial passive collapse with developing infiltrate not excluded. Mild pulmonary vascular congestion. Right-sided dialysis catheter again noted. Reading Location: [facility] Chest X-Ray 02/17/25 08:00 IMPRESSION: Support lines are in appropriate position. Lung findings are grossly unchanged. Reading Location: [facility] CXR reviewed personally, R hemidiaphragm clearer and CPA clearer. Still has LLL atelectasis Assessment and Plan . Assessment and plan: ICU Problem List: hypoxemic respiratory failure, acute CKD into ESRD requiring HD metabolic encephalopathy prolonged mechanical ventilation atelectasis Plan: Recommend on site staff initiate GOC discussion with family re: tracheostomy and PEG when NOK visit I have limited optimism regarding SBT values, but would be willing to attempt higher risk extubation to BIPAP 18/10cwp Patient nods when asked about reintubation if necessary and is currently FULL CODE Armando Rangel MD [facility] Access TeleCare Critical Care Time: 55 mimn The entirety of this encounter was done via Telemedicine Physical Exam Narrative chronically ill appearing nontoxic appearing LAZO as mentioned above, no facial asymmetry or CVA signs Lungs CTAB on R, crackles on L base Subjective Subjective CC: could not obtain 2/2 intubation, mech vent, sedation HPI: patient has failed SBT serially since 02/11 2/2 tachypnea and low Vt. LAZO and able to follow commands otherwise 02/16 - LAZO, failed SBT after HD 2/2 tachypnea and low Vt 02/17 - getting more HD today; sedation = precedex at 1.0, decreased 50% at 0815. NGT placed to LIS in prep for extubation; cuff leak absent at 0830 but patient had small cough in response; PSV 10/5 attempted with marginal tidal volumes initially. CXR showing improved RLL ROS could not be obtained 2/2 the above
[2025-02-17 09:15] LABS: Allen Test Positive; Base Excess 4 mmol/L (-2 to +2); Bicarbonate 27.6 mmol/L (22-26); Blood Gas Specimen Type ART; Mode PS; O2 Delivery Device Adult Vent; PEEP 5; PO2 65 mmHG (75-100); SITE R Radial; SO2 94 % (95-99); Total Carbon Dioxide 29 mmol/L; pCO2 36.5 mmHg (35-45); pH 7.49 (7.35-7.45)
[2025-02-17] MEDS: Insulin Glargine-YFGN 100 UNIT/ML Pen 35 UNIT SC ×2 (10:12→23:29)
[2025-02-17] MEDS: CHLORHEXIDINE GLUC 2% CLOTH 1 EACH TOWELETTE TOPICAL (10:19)
[2025-02-17] MEDS: Chlorhexidine 15 ML PO ×2 (10:19→21:10)
--- NOTE | 2025-02-17 12:28 | PN_ITS ---
Subjective Subjective Patient seen and examined. She remains intubated. RASS goal is however 0 she is only on Precedex. Per her nurse she failed her spontaneous breathing trial again this morning as she was not taking adequately deep spontaneous breaths. She is able to nod or shake her head in response to questions. She denies any chest pain, palpitations, dizziness, nausea or any other symptoms. REview of systems is otherwise negative. She is on minimal vent settings Objective Data Objective Data Vital Signs: Vital Signs Temp Pulse Resp BP Pulse Ox O2 Del Method O2 Flow Rate 97.7 F L 60 14 121/56 H 99 Mechanical Ventilator 95 02/17/25 12:14 02/17/25 12:14 02/17/25 12:14 02/17/25 12:14 02/17/25 12:14 02/17/25 12:14 02/15/25 15:15 FiO2 24 02/17/25 11:20 Oxygen Flow Rate (L/min) 95 Oxygen Delivery Method Mechanical Ventilator Weight: 229 lb 15.074 oz Body Mass Index (BMI) 38.2 Intake & Output: Intake and Output for Last 24 Hours 02/15/25 02/16/25 02/17/25 23:59 23:59 23:59 Intake Total 2255.52 / 2278.40 1333.88 / 1333.88 806.44 / 806.44 Output Total 4330 / 4330 2300 / 2300 2072 / 2072 Balance -2074.48 / -2051.60 -966.12 / -966.12 -1265.56 / -1265.56 Lab / Micro Data 02/17/25 04:15 02/17/25 04:15 Labs: Laboratory Results - last 24 hr 02/16/25 05:26: Total Creatine Kinase 34 02/16/25 12:35: POC Glucose 143 H 02/16/25 17:13: POC Glucose 200 H 02/16/25 21:45: POC Glucose 224 H 02/17/25 00:17: POC Glucose 240 H 02/17/25 04:15: WBC 15.8 H, RBC 4.10 L, Hgb 9.0 L, Hct 30.7 L, MCV 74.9 L, MCH 22.0 L, MCHC 29.3 L, RDW Std Deviation 51.8 H, RDW Coeff of Bulmaro 19.9 H, Plt Count 323, MPV 10.8, Immature Gran % (Auto) 0.600, Neut % (Auto) 82.4 H, Lymph % (Auto) 7.2 L, [place] % (Auto) 8.0, Eos % (Auto) 1.3, Baso % (Auto) 0.5, Absolute Neuts (auto) 13.0 H, Absolute Lymphs (auto) 1.14, Nucleated RBC % 0, Sodium 135, Potassium 3.9, Chloride 97 L, Carbon Dioxide 22.8, Anion Gap 15, BUN 80 H, C reatinine 2.35 H, Estim Creat Clear Calc 24.22 L, Est GFR (MDRD) Non-Af 21 L, B UN/Creatinine Ratio 34.0 H, Glucose 256 H, Calcium 9.5 02/17/25 06:23: POC Glucose 221 H Micro: Microbiology 02/05/25 12:15 Blood Culture (Wb) - Left Wrist Blood Culture - Final No growth in 5 days. 02/05/25 12:04 Blood Culture (Wb) - Right Hand Blood Culture - Final No growth in 5 days. 02/08/25 11:15 Sputum, Induced/Lukens Gram Stain - Final 02/08/25 11:15 Sputum, Induced/Lukens Respiratory Culture - Final Mixed normal respiratory dave. No Streptococcus pneumoniae, beta-hemolytic Streptococcus or Staphylococcus aureus isolated. 02/08/25 00:05 Stool Stool Occult Blood (TREVOR) - Final 02/05/25 11:20 Urine Catheter - Catheter Urine Culture - Final Presumptive E. coli 02/05/25 16:50 Nasal Secretion MRSA (PCR) - Final 02/05/25 16:50 Wound - Leg, Left Skin and Soft Tissue MRSA/MSSA (PCR - Final ABG Data ABG results: ABG 02/17/25 09:10 Specimen Type ART Sample Site R Radial pH 7.49 H Bicarbonate Actual 27.6 H Total CO2 29 Base Excess 4 H O2 Saturation 94 L O2 % 24.0 ABG pCO2 36.5 ABG pO2 65 L Harvey Test Positive O2 Delivery Device Adult Vent Vent Mode PS POC PEEP 5 Radiography Diagnostic Testing: Radiology Impression Chest X-Ray 02/15/25 03:45 IMPRESSION: Endotracheal tube 2 cm above the asia. Nasogastric tube and side port crosses the diaphragm with tip extending off the inferior edge of the film. Small bilateral pleural effusions with bibasilar areas of atelectasis, partial passive collapse with developing infiltrate not excluded. Mild pulmonary vascular congestion. Right-sided dialysis catheter again noted. Reading Location: [facility] Chest X-Ray 02/17/25 08:00 IMPRESSION: Support lines are in appropriate position. Lung findings are grossly unchanged. Reading Location: [facility] Rhythm Strip Rhythm Strip: Sinus Rhythm Rate: 104 Physical Exam Const alert and no apparent distress Constitutional Narrative: flat affect, RASS score is 0. HEENT normocephalic and head/scalp atraumatic HEENT Narrative: intubated Eyes PERRL and EOMs intact bilaterally Neck no lymphadenopathy and supple Lymph Lymphatic: no lymphadenopathy noted and no lymphedema noted Cardio regular rate, regular rhythm, S1 normal heart sound, S2 normal heart sound and no murmurs GI normal to inspection, nondistended, normoactive bowel sounds, soft to palpation, non-tender and non-distended Extremity General Extremity: no tenderness to palpation of joints or extremities Skin General Skin Exam: no breakdown Neuro CN's II-XII intact bilaterally and no focal motor deficits Motor Exam: general weakness Psych Psych Narrative: alert, flat affect. RASS score is 0; on precedex drip. Mood & Affect: flat affect Assessment & Plan Assessment/Plan (1) Acute respiratory failure with hypoxia and hypercarbia: (2) Acute on chronic combined systolic (congestive) and diastolic (congestive) heart failure: (3) Cardiac LV ejection fraction 10-20%: (4) Cellulitis of right anterior lower leg: PLAN: Plan #Acute hypoxic and hypercapnic respiratory failure due to acute exacerbation of combined heart failure * Remains intubated. She is on minimal vent settings with PEEP of 5 and FiO2 of 24. * However she failed a spontaneous breathing trial again as she was having minimal tidal volumes. * Titrate oxygen to maintain saturation above 90%. * She is having dialysis also which should help with fluid removal. * Management as per critical care. * Goals of care discussion was initiated with family yesterday. His son wants to talk to his father who is the next of kin about tracheostomy and PEG due to difficulty with extubation. * #Acute on chronic combined heart failure * On IV Lasix and also received metolazone. * Was initially on Lasix drip but was switched to IV Lasix bolus doses due to renal function worsening * Back on her carvedilol #Elevated troponins: * Thought to be due to demand ischemia and therefore type II non-STEMI. * She does have a history of CAD s/p stents. Carvedilol held due to CHF exacerbation and fluid overload and to be resumed once fluid overload resolves. * On Imdur * #ELIDA on CKD IV: * Patient requiring dialysis. Nephrology on board. #Chronic iron deficiency anemia: #Type 2 diabetes mellitus: On insulin sliding scale. Accu-Cheks every 6 hourly as patient is n.p.o. on lantus 35 units bid. 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 #History of CVA: On aspirin and high intensity statin #Depression and anxiety: on fluoxetine. DVT prophylaxis: on heparin. Charges/Coding Visit Charges Inpatient E&M: 62647 Subs Hosp L3
[2025-02-17] MEDS: Carvedilol 6.25 MG Tablet PO ×2 (12:30→17:21)
[2025-02-17] MEDS: FLUoxetine 10 MG Capsule PO (12:30)
[2025-02-17] MEDS: Aspirin E.C. 81 MG Tablet PO (12:30)
[2025-02-17] MEDS: Furosemide 40 MG/4 ML Vial IV ×2 (12:31→17:21)
[2025-02-17] MEDS: Isosorbide DN 10 MG Tablet 5 MG PO ×2 (12:31→21:09)
[2025-02-17] MEDS: Pantoprazole Sodium 40 MG in 0.9% Normal Saline (100mL MB+) 100 ML 330 MG IV (12:37)
[2025-02-17 13:30] LABS: Bedside Glucose 150 mg/dL (74-106)
[2025-02-17 18:03] LABS: Bedside Glucose 169 mg/dL (74-106)
[2025-02-17] MEDS: Atorvastatin Calcium 40 MG Tablet PO (21:10)
[2025-02-18] VITALS (39 sets, daily range): BP systolic 111–141; BP diastolic 43–67; PULSE 60–69; RESP 14–30; TEMP 36.2–36.6; O2SAT 91–100; BMI 38.3
[2025-02-18 00:02] LABS: Bedside Glucose 200 mg/dL (74-106)
[2025-02-18] MEDS: CHLORHEXIDINE GLUC 2% CLOTH 1 EACH TOWELETTE TOPICAL (02:29)
[2025-02-18] MEDS: dexMEDEtomidine 1,000 MCG in 0.9% Normal Saline (250mL Bag) 240 ML 27.2 MCG CONT INF ×3 (04:30→22:47)
[2025-02-18] MEDS: hydrALAZINE 10 MG Tablet PO ×3 (05:39→21:45)
[2025-02-18] MEDS: guaiFENesin 10 ML UDC (200MG/10ML) NG ×3 (05:39→21:46)
[2025-02-18] MEDS: NEPRO 1,000 ML 30 ML GT (05:40)
[2025-02-18] MEDS: Menthol/Lanolin/Calamine/Znox 113 GM Tube 1 APPLIC TOPICAL ×3 (05:40→21:45)
[2025-02-18] MEDS: Insulin Lispro 100 UNIT/ML INSULN.PEN SC ×4 (05:44→23:21)
[2025-02-18] MEDS: 0.9% Saline Lock 10 ML Syringe IV (05:45)
[2025-02-18 06:12] LABS: Bedside Glucose 197 mg/dL (74-106)
[2025-02-18 06:40] LABS: Absolute Lymphocyte Count 1.04 X10^3/uL (0.83-4.51); Absolute Neutrophil Count 11.5 X10^3/uL (2.0-7.7); Basophil# 0.09 X10^3/uL; Basophil% 0.6 % (0-1); Eosinophil# 0.25 X10^3/uL; Eosinophils% 1.8 % (0-5); Hematocrit 29.1 % (37-47); Hemoglobin 8.5 g/dL (12.0-15.0); Lymphocyte # 1.04 X10^3/ul (0.83-4.51); Lymphocyte % 7.5 % (19-41); Mean Corp Hgb Conc 29.2 g/dL (32-36); Mean Corpuscular Hgb 22.1 pg (27.0-32.0); Mean Corpuscular Volume 75.6 fL (81-99); Mean Platelet Vol. 10.9 fl (6.2-12.0); Monocyte# 0.97 X10^3/uL; NRBC Flagged by Analyzer 0 % (0-5); Neutrophil # 11.52 X10^3/uL (2.7-7.7); Neutrophil % 82.5 % (47-70); POSITIVE MORPHOLOGY YES; Platelet Count 299 K/mm3 (150-450); RBC Distribution Width CV 20.1 % (11.6-14.6); RBC Distribution Width SD 53.1 fl (35.1-43.9); Red Blood Count 3.85 M/mm3 (4.2-5.4)
[2025-02-18 06:44] LABS: Differential Indicated SCAN CRITERIA MET
[2025-02-18 06:53] LABS: Anion Gap 14 (5-15); BUN 68 mg/dL (4-19); BUN/Creat Ratio 29.3 RATIO (10-20); Calcium,Total 9.1 mg/dL (7.6-11.0); Carbon Dioxide 21.2 mmol/L (21.0-32.0); Chloride 98 mmol/L (98-108); Creatinine, Serum 2.31 mg/dL (0.70-1.20); EST Glomerular Filtration Rate 21 (>60); Estimated Creatinine Clearance 24.85 ml/min (50-250); Glucose 218 mg/dL (70-99); Potassium 3.9 mmol/L (3.3-5.1); Sodium Level 133 mmol/L (133-145)
[2025-02-18 07:10] LABS: Anisocytosis 2+; Differential Comment SCANNED; Ovalocyte 2+; Platelet Estimate ADEQUATE (ADEQ)
[2025-02-18] MEDS: Albuterol 2.5 MG/3 ML VIAL.NEB. INHALATION ×3 (07:14→22:35)
[2025-02-18] MEDS: Carvedilol 6.25 MG Tablet PO ×2 (09:27→17:45)
[2025-02-18] MEDS: Insulin Glargine-YFGN 100 UNIT/ML Pen 35 UNIT SC ×2 (09:27→23:14)
[2025-02-18] MEDS: Furosemide 40 MG/4 ML Vial IV ×2 (09:28→17:45)
[2025-02-18] MEDS: Isosorbide DN 10 MG Tablet 5 MG PO ×2 (09:28→21:44)
[2025-02-18] MEDS: Pantoprazole Sodium 40 MG in 0.9% Normal Saline (100mL MB+) 100 ML 330 MG IV (09:29)
[2025-02-18] MEDS: FLUoxetine 10 MG Capsule PO (09:29)
--- NOTE | 2025-02-18 09:42 | PCM.PROGNOTE ---
Subjective Subjective Patient seen and examined. She still remains intubated and remains on Precedex drip. She was undergoing spontaneous breathing trial at time of my review. Unable to do review of systems as she is nonverbal due to being intubated although she is able to note in response to some questions. She has remained hemodynamically stable. Objective Data Objective Data Vital Signs: Vital Signs Temp Pulse Resp BP Pulse Ox O2 Del Method O2 Flow Rate 97.2 F L 62 17 129/45 H 95 Mechanical Ventilator 95 02/18/25 05:00 02/18/25 07:14 02/18/25 07:14 02/18/25 07:00 02/18/25 07:14 02/18/25 07:00 02/15/25 15:15 FiO2 24 02/18/25 07:14 Oxygen Flow Rate (L/min) 95 Oxygen Delivery Method Mechanical Ventilator Weight: 230 lb 2.601 oz Body Mass Index (BMI) 38.3 Intake & Output: Intake and Output for Last 24 Hours 02/16/25 02/17/25 02/18/25 23:59 23:59 23:59 Intake Total 1333.88 / 1333.88 1417.48 / 1444.68 895.32 / 895.32 Output Total 2300 / 2300 2127 / 2127 170 / 170 Balance -966.12 / -966.12 -709.52 / -682.32 725.32 / 725.32 Lab / Micro Data 02/18/25 06:25 02/18/25 06:25 Labs: Laboratory Results - last 24 hr 02/17/25 12:28: POC Glucose 150 H 02/17/25 17:20: POC Glucose 169 H 02/17/25 23:28: POC Glucose 200 H 02/18/25 05:44: POC Glucose 197 H 02/18/25 06:25: WBC 14.0 H, RBC 3.85 L, Hgb 8.5 L, Hct 29.1 L, MCV 75.6 L, MCH 22.1 L, MCHC 29.2 L, RDW Std Deviation 53.1 H, RDW Coeff of Bulmaro 20.1 H, Plt Count 299, MPV 10.9, Immature Gran % (Auto) 0.600, Neut % (Auto) 82.5 H, Lymph % (Auto) 7.5 L, [place] % (Auto) 7.0, Eos % (Auto) 1.8, Baso % (Auto) 0.6, Absolute Neuts (auto) 11.5 H, Absolute Lymphs (auto) 1.04, Nucleated RBC % 0, Differential Comment SCANNED, Platelet Estimate ADEQUATE, Anisocytosis 2+, Ovalocytes 2+, Sodium 133, Potassium 3.9, Chloride 98, Carbon Dioxide 21.2, Anion Gap 14, BUN 68 H, Creatinine 2.31 H, Estim Creat Clear Calc 24.85 L, Est GFR (MDRD) Non-Af 21 L, BUN/Creatinine Ratio 29.3 H, Glucose 218 H, Calcium 9.1 Micro: Microbiology 02/05/25 12:15 Blood Culture (Wb) - Left Wrist Blood Culture - Final No growth in 5 days. 02/05/25 12:04 Blood Culture (Wb) - Right Hand Blood Culture - Final No growth in 5 days. 02/08/25 11:15 Sputum, Induced/Lukens Gram Stain - Final 02/08/25 11:15 Sputum, Induced/Lukens Respiratory Culture - Final Mixed normal respiratory dave. No Streptococcus pneumoniae, beta-hemolytic Streptococcus or Staphylococcus aureus isolated. 02/08/25 00:05 Stool Stool Occult Blood (TREVOR) - Final 02/05/25 11:20 Urine Catheter - Catheter Urine Culture - Final Presumptive E. coli 02/05/25 16:50 Nasal Secretion MRSA (PCR) - Final 02/05/25 16:50 Wound - Leg, Left Skin and Soft Tissue MRSA/MSSA (PCR - Final Rhythm Strip Rhythm Strip: Sinus Rhythm Rate: 104 Physical Exam Const alert and no apparent distress Constitutional Narrative: flat affect, RASS score is 0. General Appearance: cooperative, intubated and patient mechanically ventilated HEENT normocephalic and head/scalp atraumatic Eyes PERRL, EOMs intact bilaterally and conjunctivae normal Neck no lymphadenopathy, supple and no JVD Lymph Lymphatic: no lymphadenopathy noted and no lymphedema noted Resp Resp Narrative: mildly diminished breath sounds bibasally, no wheezes or crackles. On Auscultation: Negative for crackles, rales, rhonchi or wheezes Cardio regular rate, regular rhythm, S1 normal heart sound, S2 normal heart sound and no murmurs GI normal to inspection, nondistended, normoactive bowel sounds, soft to palpation, non-tender and non-distended Extremity no clubbing, cyanosis or edema General Extremity: edema and no tenderness to palpation of joints or extremities Skin no rashes or lesions noted General Skin Exam: no breakdown Neuro CN's II-XII intact bilaterally and no focal motor deficits Neuro Narrative: Follows simple commands. RASS score is 0 Sensorium / Orientation: sedated on vent Motor Exam: general weakness Psych Psych Narrative: alert, flat affect. RASS score is 0; on precedex drip. Appearance: intubated Mood & Affect: flat affect Assessment & Plan Assessment/Plan (1) Acute respiratory failure with hypoxia and hypercarbia: (2) Acute on chronic combined systolic (congestive) and diastolic (congestive) heart failure: (3) Cardiac LV ejection fraction 10-20%: (4) Cellulitis of right anterior lower leg: PLAN: Plan #Acute hypoxic and hypercapnic respiratory failure due to acute exacerbation of combined heart failure Remains intubated. She is on minimal vent settings with PEEP of 5 and FiO2 of 24. However she failed a spontaneous breathing trial yesterday as she was having minimal tidal volumes. was having spontaneous breathing trial today during review. Titrate oxygen to maintain saturation above 90%. She is having dialysis also which should help with fluid removal. Management as per critical care. Critical care recommended ENT consult for Trach and GI for PEG. ENT not available this weekend. Family also deciding about if they want trach or peg. #Acute on chronic combined heart failure On IV Lasix and also received metolazone. Was initially on Lasix drip but was switched to IV Lasix bolus doses due to renal function worsening Back on her carvedilol #Elevated troponins: Thought to be due to demand ischemia and therefore type II non-STEMI. She does have a history of CAD s/p stents. Carvedilol held due to CHF exacerbation and fluid overload and to be resumed once fluid overload resolves. On Imdur #ELIDA on CKD IV: Patient requiring dialysis. Nephrology on board. #Chronic iron deficiency anemia: Hb is 8.5. #Type 2 diabetes mellitus: On insulin sliding scale. Accu-Cheks every 6 hourly as patient is n.p.o. on lantus 35 units bid. 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 #History of CVA: On aspirin and high intensity statin #Depression and anxiety: on fluoxetine. DVT prophylaxis: on heparin. Charges/Coding Visit Charges Inpatient E&M: 83673 Subs Hosp L3
--- NOTE | 2025-02-18 09:50 | PN.CC_ITS ---
Objective Data Objective Data Vital Signs: Vital Signs Last response 3 Temperature 36.2 C L 02/18/25 05:00 Temperature Source Temporal 02/18/25 05:00 Pulse Rate 62 02/18/25 07:14 Pulse Strength Weak (1+) 02/17/25 21:26 Respiratory Rate 17 02/18/25 07:14 Respiratory Effort Mechanically Ventilated 02/18/25 05:00 Respiratory Depth Normal 02/17/25 05:00 Respiratory Pattern Normal 02/18/25 07:14 Blood Pressure 129/45 H 02/18/25 07:00 Blood Pressure Mean 73 02/18/25 07:00 Blood Pressure Source Monitor 02/18/25 07:00 Blood Pressure Position Semi-Fowlers 02/18/25 07:00 Blood Pressure Location Right Arm 02/18/25 07:00 Pulse Ox 95 02/18/25 07:14 Oxygen Delivery Method Mechanical Ventilator 02/18/25 07:00 Oxygen Flow Rate (L/min) 95 02/15/25 15:15 Fraction of Inspired Oxygen (FIO2) 24 02/18/25 07:14 I&O: I&O Last 24 Hours 3 02/17/25 02/17/25 02/18/25 11:59 23:59 11:59 Intake Total 806.44 / 1444.68 611.04 / 1444.68 895.32 / 895.32 Output Total 80 / 2127 204 / 2126 170 / 170 Balance 726.44 / -682.32 -1435.96 / -682.32 725.32 / 725.32 I&O: Total Stay 3 02/05/25 09:43 thru 02/18/25 07:00 Intake Total 16909.77 Output Total 60163 Balance -9997.23 Current Meds Ordered / Administered: Current meds ordered / Administered 3 Generic Name Dose Route Start Last Admin Trade Name Freq PRN Reason Stop Dose Admin Acetaminophen 650 mg 02/05/25 13:41 02/07/25 23:29 Acetaminophen 325 Mg Tablet PO 650 mg Q6H PRN PRN Administration Pain 1-10 Or Fever >100.7 Albuterol Sulfate 2.5 mg 02/10/25 11:30 02/18/25 07:14 Albuterol 2.5 Mg/3 Ml Vial.Neb. INHALATION 2.5 mg Q8H.RT PARMINDER Administration Aspirin 81 mg 02/06/25 08:00 02/18/25 09:24 Aspirin E.C. 81 Mg Tablet PO Not Given BREAKFAST PARMINDER Atorvastatin Calcium 40 mg 02/05/25 22:00 02/17/25 21:10 Atorvastatin Calcium 40 Mg Tablet PO 40 mg QHS PARMINDER Administration Calamine/Phenol 1 applic 02/11/25 22:00 02/18/25 05:40 Menthol/Lanolin/Calamine/Znox 113 Gm Tube TOPICAL 1 applic TID PARMINDER Administration Protocol Carvedilol 6.25 mg 02/05/25 19:30 02/18/25 09:27 Carvedilol 6.25 Mg Tablet PO 6.25 mg BIDCM PARMINDER Administration Protocol Chlorhexidine Gluconate 15 ml 02/10/25 10:00 02/18/25 08:54 Chlorhexidine 15 Ml PO Not Given BID PARMINDER Chlorhexidine Gluconate 1 each 02/13/25 10:00 02/18/25 02:29 Chlorhexidine Gluc 2% Cloth 1 Each Towelette TOPICAL 1 each DAILY PARMINDER Administration Fentanyl Citrate 50 mcg 02/11/25 11:33 Fentanyl 100 Mcg/2 Ml Ampul IV Q1H PRN PRN CPOT score > 3 Fluoxetine HCl 10 mg 02/06/25 10:00 02/18/25 09:29 Fluoxetine 10 Mg Capsule PO 10 mg DAILY PARMINDER Administration Furosemide 40 mg 02/13/25 18:00 02/18/25 09:28 Furosemide 40 Mg/4 Ml Vial IV 40 mg BIDLX PARMINDER Administration Protocol Guaifenesin 10 ml 02/10/25 14:00 02/18/25 05:39 Guaifenesin 10 Ml Udc (200mg/10ml) NG 10 ml Q8H PARMINDER Administration Heparin Sodium (Porcine) 5,000 unit 02/08/25 14:00 02/13/25 22:45 Heparin Injection (Vial) 5,000 Unit/Ml Vial SC Not Given Q8 PARMINDER Hydralazine HCl 10 mg 02/06/25 08:30 02/18/25 05:39 Hydralazine 10 Mg Tablet PO 10 mg TID PARMINDER Administration Protocol Sodium Chloride 250 mls @ 15 mls/hr 02/05/25 16:53 02/11/25 16:00 IV 0 mls/hr .[id number] PRN Infusion Saline Flush Sodium Chloride 250 mls @ 15 mls/hr 02/05/25 16:53 IV .[id number] PRN Additional IVPB Infusion Norepinephrine Bitartrate 8 mg 250 mls @ 9.375 mls/hr 02/08/25 11:30 02/18/25 09:31 / Sodium Chloride CONT INF Not Given .[id number] PARMINDER Protocol 5 MCG/MIN Pantoprazole Sodium 40 mg/ 110 mls @ 330 mls/hr 02/08/25 12:30 02/18/25 09:29 Sodium Chloride IV 330 mls/hr Q24 PARMINDER Administration Dexmedetomidine HCl 1,000 mcg/ 250 mls @ 13.6 mls/hr 02/10/25 01:30 02/18/25 07:00 Sodium Chloride CONT INF 1 mcg/kg/hr .[id number] PARMINDER 27.2 mls/hr Titration Protocol 0.5 MCG/KG/HR Enteral Nutritional Formula 1,000 mls @ 30 mls/hr 02/14/25 15:30 02/18/25 05:40 Nepro Carb Steady GT 30 mls/hr .[id number] PARMINDER Administration Insulin Glargine 35 unit 02/16/25 10:00 02/18/25 09:27 Insulin Glargine-Yfgn 100 Unit/Ml Pen SC 35 unit BID PARMINDER Administration Insulin Human Lispro 0 unit 02/16/25 12:00 02/18/25 05:44 Insulin Lispro 100 Unit/Ml Insuln.Pen SC 2 u Q6 PARMINDER Administration Protocol Isosorbide Dinitrate 5 mg 02/06/25 10:00 02/18/25 09:28 Isosorbide Dn 10 Mg Tablet PO 5 mg BID PARMINDER Administration Protocol Polyethylene Glycol 17 gm 02/07/25 10:00 02/18/25 08:56 Polyethylene Glycol 3350 17 Gm Packet PO Not Given DAILY PARMINDER Senna/Docusate Sodium 2 tablet 02/07/25 10:00 02/18/25 08:57 Senna/Docusate Sodium 1 Tablet PO Not Given BID PARMINDER Sodium Chloride 10 - 40 ml 02/05/25 16:13 02/18/25 05:45 0.9% Saline Lock 10 Ml Syringe IV 30 ml UD PRN Administration SALINE FLUSH Lab / Micro Data Attestation: I reviewed the patient's lab results. 02/18/25 06:25 02/18/25 06:25 Labs: Laboratory Results - last 24 hr 02/17/25 12:28: POC Glucose 150 H 02/17/25 17:20: POC Glucose 169 H 02/17/25 23:28: POC Glucose 200 H 02/18/25 05:44: POC Glucose 197 H 02/18/25 06:25: WBC 14.0 H, RBC 3.85 L, Hgb 8.5 L, Hct 29.1 L, MCV 75.6 L, MCH 22.1 L, MCHC 29.2 L, RDW Std Deviation 53.1 H, RDW Coeff of Bulmaro 20.1 H, Plt Count 299, MPV 10.9, Immature Gran % (Auto) 0.600, Neut % (Auto) 82.5 H, Lymph % (Auto) 7.5 L, [place] % (Auto) 7.0, Eos % (Auto) 1.8, Baso % (Auto) 0.6, Absolute Neuts (auto) 11.5 H, Absolute Lymphs (auto) 1.04, Nucleated RBC % 0, Differential Comment SCANNED, Platelet Estimate ADEQUATE, Anisocytosis 2+, Ovalocytes 2+, Sodium 133, Potassium 3.9, Chloride 98, Carbon Dioxide 21.2, Anion Gap 14, BUN 68 H, Creatinine 2.31 H, Estim Creat Clear Calc 24.85 L, Est GFR (MDRD) Non-Af 21 L, BUN/Creatinine Ratio 29.3 H, Glucose 218 H, Calcium 9.1 Rhythm Strip Rhythm Strip: Sinus Rhythm Rate: 104 Assessment and Plan . Assessment and plan: ICU Problem List: hypoxemic respiratory failure, acute CKD into ESRD requiring HD metabolic encephalopathy prolonged mechanical ventilation atelectasis Plan: Trach PEG planned for 02/20 daily SBT probably still worthwhile to avoid muscle atrophy back to [facility] after 1h Armando Rangel MD P[facility] Critical Care Time: 55 mimn The entirety of this encounter was done via Telemedicine Physical Exam Const alert and no apparent distress Constitutional Narrative: flat affect, RASS score is 0. General Appearance: cooperative, intubated and patient mechanically ventilated HEENT normocephalic and head/scalp atraumatic Eyes PERRL, EOMs intact bilaterally and conjunctivae normal Neck no lymphadenopathy, supple and no JVD Lymph Lymphatic: no lymphadenopathy noted and no lymphedema noted Resp Resp Narrative: mildly diminished breath sounds bibasally, no wheezes or crackles. On Auscultation: Negative for crackles, rales, rhonchi or wheezes Cardio regular rate, regular rhythm, S1 normal heart sound, S2 normal heart sound and no murmurs GI normal to inspection, nondistended, normoactive bowel sounds, soft to palpation, non-tender and non-distended Extremity no clubbing, cyanosis or edema General Extremity: edema and no tenderness to palpation of joints or extremities Skin no rashes or lesions noted General Skin Exam: no breakdown Neuro CN's II-XII intact bilaterally and no focal motor deficits Neuro Narrative: Follows simple commands. RASS score is 0 Sensorium / Orientation: sedated on vent Motor Exam: general weakness Psych Psych Narrative: alert, flat affect. RASS score is 0; on precedex drip. Appearance: intubated Mood & Affect: flat affect Subjective Subjective CC: could not obtain 2/2 intubation, mech vent, sedation HPI: patient has failed SBT serially since 02/11 2/2 tachypnea and low Vt. LAZO and able to follow commands otherwise 02/16 - LAZO, failed SBT after HD 2/2 tachypnea and low Vt 02/17 - getting more HD today; sedation = precedex at 1.0, decreased 50% at 0815. NGT placed to LIS in prep for extubation; cuff leak absent at 0830 but patient had small cough in response; PSV 10/5 attempted with marginal tidal volumes initially. CXR showing improved RLL 02/18 - tolerating 5/5 PSV daily, but still low Vts ROS could not be obtained 2/2 the above
[2025-02-18 12:48] LABS: Bedside Glucose 181 mg/dL (74-106)
[2025-02-18 18:07] LABS: Bedside Glucose 178 mg/dL (74-106)
[2025-02-18] MEDS: Atorvastatin Calcium 40 MG Tablet PO (21:43)
[2025-02-18] MEDS: Senna/Docusate Sodium 1 Tablet 2 TABLET PO (21:43)
[2025-02-18] MEDS: Chlorhexidine 15 ML PO (21:45)
[2025-02-19] VITALS (40 sets, daily range): BP systolic 101–140; BP diastolic 45–81; PULSE 58–74; RESP 14–30; TEMP 36.2–36.8; O2SAT 94–100; BMI 39.2
--- NOTE | 2025-02-19 05:51 | PN.CC_ITS ---
Assessment & Plan Assessment/Plan (1) Acute on chronic combined systolic (congestive) and diastolic (congestive) heart failure: (2) Urinary tract infection: (3) Acute respiratory failure with hypoxia and hypercarbia: (4) Chronic kidney disease (CKD): QUALIFIERS: Chronic kidney disease stage: stage 4 (GFR 15-29) Q ualified Code(s): N18.4 - Chronic kidney disease, stage 4 (severe) PLAN: Plan RECOMMENDATIONS: 1. Continue assist-control mode of mechanical ventilation. Wean FiO2 and PEEP as tolerated. 2. Proceed with tracheostomy and PEG tube placement, if feasible, given failure to wean from ventilator. 3. If there is no ENT coverage available, may need to consider transfer to a tertiary care facility. 4. Ongoing diuresis along with goal-directed medical therapy. 5. Continue tube feeding as tolerated. 6. Continue appropriate ICU prophylaxis. 7. Ongoing dialysis support per nephrology recommendations. IMPRESSIONS: 1. Acute respiratory failure with hypoxemia and hypercapnia secondary to decompensated heart failure The patient was initially admitted to the hospital with acute decompensated congestive heart failure and UTI, but worsened from a respiratory perspective on the morning of February 08, with increasing oxygen requirement and lethargy. Subsequent ABG demonstrated acute CO2 retention, which was refractory to the use of noninvasive positive pressure ventilatory support. Therefore, the patient was intubated. The patient appears to have stabilized from a respiratory perspective following intubation. She will be continued on assist-control mode of mechanical ventilation, with a goal to wean FiO2 and PEEP as tolerated. Unfortunately, despite continued supportive care, the patient has failed multiple attempts at spontaneous breathing trials. She is significantly debilitated and will likely require tracheostomy and PEG tube placement. 2. Acute on chronic combined systolic and diastolic heart failure Continue medical management per cardiology recommendations. Unclear long-term prognosis. 3. Acute on chronic kidney disease Suspect that this is related to underlying cardiorenal syndrome. The patient is being followed by nephrology with plans for ongoing hemodialysis. 4. Morbid obesity/anemia/diabetes mellitus/history of CVA/depression/anxiety Complicates care, management, recovery and prognosis. Continue supportive measures as noted above. Continue tube feeding as tolerated. TIME: 32 minutes of critical care time, independent of procedures, was spent addressing the patient's acute respiratory failure with hypoxemia and hypercapnia, acute decompensated congestive heart failure, acute on chronic kidney disease, review of all data and collaboration with the care team. Subjective Subjective The patient was seen and examined at the bedside this morning. Events from the last 24 hours have been reviewed. The patient is currently afebrile, hemodynamically stable and maintaining appropriate oxygen saturations on assist- control mode of mechanical ventilation. The patient is currently documented to be overall net -8.7 L for the hospitalization. According to documentation, there are tentative plans to proceed with tracheostomy and PEG tube placement, as the patient continues to fail breathing trials. However, it is not clear if this has been communicated with ENT or not. The patient once again failed an attempt at a pressure support trial this morning, after she became tachypneic with tidal volumes less than 200 mL. Objective Data Objective Data The patient's most recent lab work, culture data and imaging studies have all been personally reviewed. Surface echocardiogram demonstrated an ejection fraction of 15%. Preliminary urine culture was demonstrating growth of E. coli. Blood cultures have not demonstrated any growth to date. Sputum culture has not demonstrated any growth to date. Vital Signs: Vital Signs Temp Pulse Resp BP Pulse Ox O2 Del Method O2 Flow Rate 97.1 F L 64 18 140/65 H 97 Mechanical Ventilator 95 02/19/25 03:00 02/19/25 05:00 02/19/25 05:00 02/19/25 05:00 02/19/25 05:00 02/19/25 05:00 02/15/25 15:15 FiO2 24 02/19/25 05:00 Oxygen Flow Rate (L/min) 95 Oxygen Delivery Method Mechanical Ventilator Weight: 230 lb 2.601 oz Body Mass Index (BMI) 38.3 Intake & Output: Intake and Output for Last 24 Hours 02/17/25 02/18/25 02/19/25 23:59 23:59 23:59 Intake Total 1417.48 / 1444.68 1960.28 / 2117.48 423.2 / 423.2 Output Total 2127 / 2127 295 / 295 100 / 100 Balance -709.52 / -682.32 1665.28 / 1822.48 323.2 / 323.2 Lab / Micro Data Attestation: I reviewed the patient's lab results. 02/19/25 04:16 02/19/25 04:16 Labs: Laboratory Results - last 24 hr 02/18/25 05:44: POC Glucose 197 H 02/18/25 06:25: WBC 14.0 H, RBC 3.85 L, Hgb 8.5 L, Hct 29.1 L, MCV 75.6 L, MCH 22.1 L, MCHC 29.2 L, RDW Std Deviation 53.1 H, RDW Coeff of Bulmaro 20.1 H, Plt Count 299, MPV 10.9, Immature Gran % (Auto) 0.600, Neut % (Auto) 82.5 H, Lymph % (Auto) 7.5 L, [place] % (Auto) 7.0, Eos % (Auto) 1.8, Baso % (Auto) 0.6, Absolute Neuts (auto) 11.5 H, Absolute Lymphs (auto) 1.04, Nucleated RBC % 0, Differential Comment SCANNED, Platelet Estimate ADEQUATE, Anisocytosis 2+, Ovalocytes 2+, Sodium 133, Potassium 3.9, Chloride 98, Carbon Dioxide 21.2, Anion Gap 14, BUN 68 H, Creatinine 2.31 H, Estim Creat Clear Calc 24.85 L, Est GFR (MDRD) Non-Af 21 L, BUN/Creatinine Ratio 29.3 H, Glucose 218 H, Calcium 9.1 02/18/25 12:28: POC Glucose 181 H 02/18/25 17:43: POC Glucose 178 H Micro: Microbiology 02/05/25 12:15 Blood Culture (Wb) - Left Wrist Blood Culture - Final No growth in 5 days. 02/05/25 12:04 Blood Culture (Wb) - Right Hand Blood Culture - Final No growth in 5 days. 02/08/25 11:15 Sputum, Induced/Lukens Gram Stain - Final 02/08/25 11:15 Sputum, Induced/Lukens Respiratory Culture - Final Mixed normal respiratory dave. No Streptococcus pneumoniae, beta-hemolytic Streptococcus or Staphylococcus aureus isolated. 02/08/25 00:05 Stool Stool Occult Blood (TREVOR) - Final 02/05/25 11:20 Urine Catheter - Catheter Urine Culture - Final Presumptive E. coli 02/05/25 16:50 Nasal Secretion MRSA (PCR) - Final 02/05/25 16:50 Wound - Leg, Left Skin and Soft Tissue MRSA/MSSA (PCR - Final ABG Data ABG results: ABG 02/08/25 02/08/25 02/08/25 08:47 08:54 10:37 Specimen Type ART Cancelled ART Sample Site R Radial Cancelled L Radial pH 7.11 L* Cancelled 7.12 L* Bicarbonate Actual 26.2 H Cancelled 26.9 H Total CO2 29 Cancelled 29 Base Excess -3 L Cancelled -3 L O2 Saturation 84 L Cancelled 91 L O2 % 10.0 Cancelled 80.0 ABG pCO2 83.0 H* Cancelled 83.2 H* ABG pO2 68 L Cancelled 86 Harvey Test Positive Cancelled Positive Respiration Rate Cancelled 12 O2 Delivery Device HFNC Cancelled BiPAP Liter Flow Cancelled Minute Volume Cancelled Vent Mode Not entered Cancelled Not entered Inspiratory Time Cancelled Expiratory Time Cancelled Tidal Volume Cancelled Mean Airway Pressure Cancelled POC PEEP Cancelled 8 Peak Inspir Pressure Cancelled POC Pressure Suppt Cancelled Pressure Control Cancelled Pressure High Cancelled Pressure Low Cancelled Time High Cancelled Time Low Cancelled EPAP Cancelled IPAP Cancelled Blood Gas Comments Cancelled Crit Call To/Read Back Yes Cancelled Yes Blood Gas Notified Whom BROWN Cancelled BROWN Blood Gas Notified Time 08:48:45 Cancelled 10:38:53 Clinical Comments Cancelled 02/08/25 12:42 Specimen Type ART Sample Site L Radial pH 7.32 L Bicarbonate Actual 27.2 H Total CO2 29 Base Excess 1 O2 Saturation 95 O2 % 90.0 ABG pCO2 53.3 H ABG pO2 86 Harvey Test Positive Respiration Rate 14 O2 Delivery Device Adult Vent Liter Flow Minute Volume Vent Mode AC Inspiratory Time Expiratory Time Tidal Volume 450.0 Mean Airway Pressure POC PEEP 5 Peak Inspir Pressure POC Pressure Suppt Pressure Control Pressure High Pressure Low Time High Time Low EPAP IPAP Blood Gas Comments Crit Call To/Read Back Blood Gas Notified Whom Blood Gas Notified Time Clinical Comments Radiography Diagnostic Testing: Radiology Impression Chest X-Ray 02/08/25 09:30 IMPRESSION: Progressive bilateral pleural effusions worse on the left side with bibasilar atelectasis and worsening CHF. Reading Location: [id number] Chest X-Ray 02/08/25 11:40 IMPRESSION: Bilateral pleural effusions and the appearance of the lung parenchyma appears unchanged from the prior chest x-ray of earlier the same day. Interval placement of endotracheal tube, with tip approximately 4 cm above the asia.. Interval placement of nasogastric tube, with tip projecting of the proximal to mid stomach. A right jugular central venous catheter is seen, with tip projecting over the SVC. No pneumothorax is noted. The cardiomediastinal silhouette is unchanged. Reading Location: [place] [id number] Rhythm Strip Rhythm Strip: Sinus Rhythm Rate: 104 Physical Exam Const Constitutional Narrative: Remains intubated, sedated and mechanically ventilated. HEENT normocephalic and head/scalp atraumatic Mouth: endotracheal tube in place and OG tube in place Eyes PERRL, EOMs intact bilaterally and conjunctivae normal Neck supple General: trachea midline Chest inspection of chest normal Resp Auscultation: diminished lung sounds; Negative for rales, rhonchi or wheezes Cardio regular rate and regular rhythm GI normal to inspection, nondistended, normoactive bowel sounds Extremity General Extremity: edema; Negative for clubbing Skin Skin Narrative: Wrapped extremities. Neuro Sensorium / Orientation: sedated on vent Charges/Coding Procedures Hospitalists Procedures: [id number] Critical Care 1st Hr
[2025-02-19] MEDS: hydrALAZINE 10 MG Tablet PO ×3 (05:52→21:18)
[2025-02-19] MEDS: guaiFENesin 10 ML UDC (200MG/10ML) NG ×3 (05:52→21:18)
[2025-02-19] MEDS: Menthol/Lanolin/Calamine/Znox 113 GM Tube 1 APPLIC TOPICAL ×3 (05:53→21:18)
[2025-02-19] MEDS: Insulin Lispro 100 UNIT/ML INSULN.PEN SC ×4 (05:56→23:20)
[2025-02-19 06:16] LABS: Absolute Lymphocyte Count 1.01 X10^3/uL (0.83-4.51); Absolute Neutrophil Count 11.5 X10^3/uL (2.0-7.7); Basophil% 0.7 % (0-1); Eosinophil# 0.27 X10^3/uL; Eosinophils% 1.9 % (0-5); Hematocrit 26.6 % (37-47); Hemoglobin 7.8 g/dL (12.0-15.0); Lymphocyte # 1.01 X10^3/ul (0.83-4.51); Lymphocyte % 7.3 % (19-41); Mean Corp Hgb Conc 29.3 g/dL (32-36); Mean Corpuscular Hgb 21.9 pg (27.0-32.0); Mean Corpuscular Volume 74.7 fL (81-99); Mean Platelet Vol. 11.4 fl (6.2-12.0); Monocyte# 0.94 X10^3/uL; Monocyte% 6.8 % (0-10); NRBC Flagged by Analyzer 0 % (0-5); Neutrophil % 82.7 % (47-70); Platelet Count 359 K/mm3 (150-450); RBC Distribution Width CV 19.7 % (11.6-14.6); RBC Distribution Width SD 52.3 fl (35.1-43.9); Red Blood Count 3.56 M/mm3 (4.2-5.4); White Blood Count 13.9 K/mm3 (4.4-11.0)
[2025-02-19 06:30] LABS: Anion Gap 14 (5-15); BUN 79 mg/dL (4-19); BUN/Creat Ratio 31.5 RATIO (10-20); Carbon Dioxide 20.2 mmol/L (21.0-32.0); Chloride 96 mmol/L (98-108); EST Glomerular Filtration Rate 19 (>60); Estimated Creatinine Clearance 23.26 ml/min (50-250); Glucose 206 mg/dL (70-99); Potassium 3.9 mmol/L (3.3-5.1); Sodium Level 130 mmol/L (133-145)
[2025-02-19 06:30] LABS: Bedside Glucose 214 mg/dL (74-106)
[2025-02-19] MEDS: Albuterol 2.5 MG/3 ML VIAL.NEB. INHALATION ×3 (07:10→19:06)
[2025-02-19] MEDS: Isosorbide DN 10 MG Tablet 5 MG PO ×2 (07:52→21:18)
[2025-02-19] MEDS: Furosemide 40 MG/4 ML Vial IV ×2 (07:53→18:10)
[2025-02-19] MEDS: FLUoxetine 10 MG Capsule PO (07:53)
[2025-02-19] MEDS: Carvedilol 6.25 MG Tablet PO (07:54)
[2025-02-19] MEDS: CHLORHEXIDINE GLUC 2% CLOTH 1 EACH TOWELETTE TOPICAL (07:54)
[2025-02-19] MEDS: Insulin Glargine-YFGN 100 UNIT/ML Pen 35 UNIT SC ×2 (07:54→23:20)
[2025-02-19] MEDS: Pantoprazole Sodium 40 MG in 0.9% Normal Saline (100mL MB+) 100 ML 330 MG IV (08:07)
[2025-02-19] MEDS: Chlorhexidine 15 ML PO ×2 (08:09→21:02)
[2025-02-19] MEDS: dexMEDEtomidine 1,000 MCG in 0.9% Normal Saline (250mL Bag) 240 ML 27.2 MCG CONT INF ×2 (08:44→18:10)
[2025-02-19] MEDS: NEPRO 1,000 ML 30 ML GT (08:45)
--- NOTE | 2025-02-19 09:11 | PN_ITS ---
Subjective Subjective Patient seen and examined. She remains intubated and sedated though RASS score is 0. She failed another spontaneous breathing trial this morning. ENT and GI consulted for trach and PEG. Objective Data Objective Data Vital Signs: Vital Signs Temp Pulse Resp BP Pulse Ox O2 Del Method O2 Flow Rate 97.1 F L 66 30 H 113/81 H 98 Mechanical Ventilator 95 02/19/25 03:00 02/19/25 07:01 02/19/25 07:45 02/19/25 07:00 02/19/25 07:01 02/19/25 07:00 02/15/25 15:15 FiO2 24 02/19/25 07:01 Oxygen Flow Rate (L/min) 95 Oxygen Delivery Method Mechanical Ventilator Weight: 235 lb 10.786 oz Body Mass Index (BMI) 39.2 Intake & Output: Intake and Output for Last 24 Hours 02/17/25 02/18/25 02/19/25 23:59 23:59 23:59 Intake Total 1417.48 / 1444.68 1960.28 / 2117.48 1316.61 / 1316.61 Output Total 212 / 2126 295 / 295 100 / 100 Balance -709.52 / -682.32 1665.28 / 1822.48 1216.61 / 1216.61 Lab / Micro Data 02/19/25 04:16 02/19/25 04:16 Labs: Laboratory Results - last 24 hr 02/18/25 12:28: POC Glucose 181 H 02/18/25 17:43: POC Glucose 178 H 02/19/25 04:16: WBC 13.9 H, RBC 3.56 L, Hgb 7.8 L, Hct 26.6 L, MCV 74.7 L, MCH 21.9 L, MCHC 29.3 L, RDW Std Deviation 52.3 H, RDW Coeff of Bulmaro 19.7 H, Plt Count 359, MPV 11.4, Immature Gran % (Auto) 0.600, Neut % (Auto) 82.7 H, Lymph % (Auto) 7.3 L, [place] % (Auto) 6.8, Eos % (Auto) 1.9, Baso % (Auto) 0.7, Absolute Neuts (auto) 11.5 H, Absolute Lymphs (auto) 1.01, Nucleated RBC % 0, Sodium 130 L, Potassium 3.9, Chloride 96 L, Carbon Dioxide 20.2 L, Anion Gap 14, BUN 79 H, Creatinine 2.50 H, Estim Creat Clear Calc 23.26 L, Est GFR (MDRD) Non-Af 19 L, B UN/Creatinine Ratio 31.5 H, Glucose 206 H, Calcium 9.0 02/19/25 05:56: POC Glucose 214 H Micro: Microbiology 02/05/25 12:15 Blood Culture (Wb) - Left Wrist Blood Culture - Final No growth in 5 days. 02/05/25 12:04 Blood Culture (Wb) - Right Hand Blood Culture - Final No growth in 5 days. 02/08/25 11:15 Sputum, Induced/Lukens Gram Stain - Final 02/08/25 11:15 Sputum, Induced/[place]ukens Respiratory Culture - Final Mixed normal respiratory dave. No Streptococcus pneumoniae, beta-hemolytic Streptococcus or Staphylococcus aureus isolated. 02/08/25 00:05 Stool Stool Occult Blood (TREVOR) - Final 02/05/25 11:20 Urine Catheter - Catheter Urine Culture - Final Presumptive E. coli 02/05/25 16:50 Nasal Secretion MRSA (PCR) - Final 02/05/25 16:50 Wound - Leg, Left Skin and Soft Tissue MRSA/MSSA (PCR - Final Rhythm Strip Rhythm Strip: Sinus Rhythm Rate: 104 Physical Exam Const alert and no apparent distress Constitutional Narrative: flat affect, RASS score is 0. General Appearance: cooperative, intubated and patient mechanically ventilated HEENT normocephalic and head/scalp atraumatic Eyes PERRL, EOMs intact bilaterally and conjunctivae normal Neck no lymphadenopathy, supple and no JVD Lymph Lymphatic: no lymphadenopathy noted and no lymphedema noted Resp Resp Narrative: mildly diminished breath sounds bibasally, no wheezes or crackles. On the ventilator, with PEEP of 5 and FiO2 of 24 Cardio regular rate, regular rhythm, S1 normal heart sound, S2 normal heart sound and no murmurs GI normal to inspection, nondistended, normoactive bowel sounds, soft to palpation, non-tender and non-distended; Negative for hepatosplenomegaly Extremity no clubbing, cyanosis or edema General Extremity: edema and no tenderness to palpation of joints or extremities Skin no rashes or lesions noted General Skin Exam: no breakdown Neuro Neuro Narrative: Follows simple commands. RASS score is 0 Sensorium / Orientation: sedated on vent Motor Exam: general weakness Psych Psych Narrative: alert, flat affect. RASS score is 0; on precedex drip. Appearance: intubated Mood & Affect: flat affect Assessment & Plan Assessment/Plan (1) Acute respiratory failure with hypoxia and hypercarbia: (2) Acute on chronic combined systolic (congestive) and diastolic (congestive) heart failure: (3) Cardiac LV ejection fraction 10-20%: (4) Cellulitis of right anterior lower leg: PLAN: Plan #Acute hypoxic and hypercapnic respiratory failure due to acute exacerbation of combined heart failure * Remains intubated. Remains on minimal vent settings with PEEP of 5 and FiO2 of 24. * However she failed a spontaneous breathing trial yesterday as she was having minimal tidal volumes. * has failed numerous spontaneous breathing trials. * Titrate oxygen to maintain saturation above 90%. * She is having dialysis also which should help with fluid removal. * Management as per critical care. * Critical care recommended ENT consult for Trach and GI for PEG. ENT not available this weekend. ENT and GI consulted for Trach and PEG. * #Acute on chronic combined heart failure * On IV Lasix and also received metolazone. * Was initially on Lasix drip but was switched to IV Lasix bolus doses due to renal function worsening * on her carvedilol #Elevated troponins: * Thought to be due to demand ischemia and therefore type II non-STEMI. * She does have a history of CAD s/p stents. Carvedilol held due to CHF exacerbation and fluid overload and to be resumed once fluid overload resolves. * On Imdur * #ELIDA on CKD IV: * Patient requiring dialysis. Nephrology on board. Cr today is down to 2.5 #Chronic iron deficiency anemia: Hb is 7.8. Was 8.5 yesterday. Will monitor and transfuse if Hb <7 #Type 2 diabetes mellitus: On insulin sliding scale. Accu-Cheks every 6 hourly as patient is n.p.o. on lantus 35 units bid. 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 #History of CVA: On aspirin and high intensity statin #Depression and anxiety: on fluoxetine. DVT prophylaxis: on heparin. Charges/Coding Visit Charges Inpatient E&M: 31752 Subs Hosp L2
--- NOTE | 2025-02-19 11:55 | PCM.HP.STD ---
[facility] - General General Date of Admission: 02/05/25 Date of Service: 02/19/25 Chief Complaint: Need for PEG tube placement HPI Romulo WALDROP, is a 74 F who presented to the ED over 2 weeks ago with worsening shortness of breath. She has a complicated medical history and was diagnosed with COPD exacerbation and acute on chronic heart failure. She was intubated due to respiratory distress. I was asked to see her for PEG tube placement. Her past medical history is also positive for type 2 diabetes mellitus, hypertension, CAD, ischemic cardiomyopathy with HFrEF (EF 15%), pulmonary hypertension, stroke stage IV-V CKD, and hyperlipidemia. She was started on hemodialysis for fluid removal. Almost all history is obtained from chart. [facility] Medical History Essential hypertension Morbid obesity with BMI of 40.0-44.9, adult Hypothermia Cardiomyopathy Chronic anemia Hypoxia History of diabetes mellitus Acute metabolic encephalopathy due to hypoglycemia History of stroke Chronic kidney disease Altered level of consciousness Non-pressure chronic ulcer of other 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 Chronic kidney disease (CKD) Type 2 diabetes mellitus with hypoglycemia Diabetes mellitus with diabetic polyneuropathy Type 2 diabetes mellitus with foot ulcer Diabetes mellitus with diabetic polyneuropathy Dyspnea Ischemic cardiomyopathy History of CVA (cerebrovascular accident) Atherosclerosis of coronary artery without angina pectoris Type 2 diabetes mellitus Secondary pulmonary arterial hypertension Chronic combined systolic and diastolic CHF (congestive heart failure) Essential hypertension Obesity Chronic kidney disease (CKD) GI bleed (01/2022) Anemia Diabetes mellitus type 2 in obese Hyperlipidemia Home Medications ?Medication ?Instructions ?Recorded ?Last Taken ?Type atorvastatin 40 mg tablet 40 mg PO QHS CHOLESTEROL 02/22/22 Unknown History aspirin 81 mg tablet,delayed 81 mg PO DAILY HEART HEALTH 06/03/22 Unknown History release (Adult Aspirin Regimen) dapagliflozin propanediol 10 mg 10 mg PO DAILY DIABETES #90 tabs 07/12/24 Unknown Rx tablet (Farxiga) blood sugar diagnostic (Accu-Chek 07/13/24 Unknown History Alvina Plus test strips) fluoxetine 10 mg capsule 10 mg PO DAILY DEPERSSION 07/13/24 Unknown History insulin lispro 100 unit/mL 15 unit subcut ACHS DM 07/13/24 Unknown History subcutaneous pen (Humalog KwikPen (U-100) Insulin) amlodipine 5 mg tablet 5 mg PO DAILY HEART #0 tabs 07/18/24 Unknown Rx vitamin B complex (Complex B-100 1 tab PO DAILY HEALTH [facility]INTEN[facility] 08/19/24 Unknown History tablet,extended release) carvedilol 12.5 mg tablet 12.5 mg PO BIDCM #30 tabs 08/22/24 Unknown Rx losartan 50 mg tablet 50 mg PO DAILY #30 tabs 08/22/24 Unknown Rx furosemide 40 mg tablet 40 mg PO BID #60 tabs 01/30/25 Unknown Rx metolazone 5 mg tablet 5 mg PO DAILY HE 01/30/25 Unknown History acetaminophen 325 mg tablet 650 mg PO Q6H PRN Pain 1-10 Or 02/05/25 Unknown History Fever >100.7 Allergy/AdvReac Type Severity Reaction Status Date / Time No Known Allergies Allergy Verified 02/05/25 09:50 Family History Father Diabetes Heart disease CAD (coronary artery disease) Mother Heart disease Surgical History History of coronary artery stent placement (09/2013) H/O vein stripping Status post angioplasty with stent Social History household members: family Smoking Status: Former smoker how long ago did patient quit smokin years ago alcohol intake: never substance use type: does not use caffeine: Yes ROS Review of Systems ROS Unobtainable: due to endotracheal tube Vital Signs Vital Signs Vital Signs: 02/18/25 12:00 02/18/25 12:00 02/18/25 12:00 Temperature 98 F Temperature Source Temporal Pulse Rate 62 62 62 Pulse Strength Respiratory Rate 14 14 Respiratory Effort Respiratory Depth Respiratory Pattern Blood Pressure 133/54 H 133/54 H Blood Pressure Mean 80 80 Blood Pressure Source Monitor Monitor Blood Pressure Position Semi-Fowlers Semi-Fowlers Blood Pressure Location Left Forearm Left Forearm Pulse Ox 95 95 Oxygen Delivery Method Mechanical Ventilator Mechanical Ventilator Fraction of Inspired Oxygen (FIO2) 02/18/25 13:00 02/18/25 13:21 02/18/25 13:36 Temperature Temperature Source Pulse Rate 61 61 63 Pulse Strength Respiratory Rate 16 14 Respiratory Effort Respiratory Depth Respiratory Pattern Normal Blood Pressure 130/57 H 130/57 H Blood Pressure Mean 81 Blood Pressure Source Monitor Blood Pressure Position Semi-Fowlers Blood Pressure Location Left Forearm Pulse Ox 95 95 Oxygen Delivery Method Mechanical Ventilator Fraction of Inspired Oxygen (FIO2) 02/18/25 14:00 02/18/25 15:00 02/18/25 15:38 Temperature Temperature Source Pulse Rate 62 64 60 Pulse Strength Respiratory Rate 14 14 18 Respiratory Effort Respiratory Depth Respiratory Pattern Normal Blood Pressure 116/43 L 113/49 L Blood Pressure Mean 67 70 Blood Pressure Source Monitor Monitor Blood Pressure Position Semi-Fowlers Semi-Fowlers Blood Pressure Location Left Forearm Left Forearm Pulse Ox 93 95 Oxygen Delivery Method Mechanical Ventilator Mechanical Ventilator Fraction of Inspired Oxygen (FIO2) 02/18/25 15:38 02/18/25 16:00 02/18/25 16:00 Temperature Temperature Source Pulse Rate 62 60 60 Pulse Strength Respiratory Rate 17 16 Respiratory Effort Respiratory Depth Respiratory Pattern Normal Blood Pressure 125/57 H Blood Pressure Mean 79 Blood Pressure Source Monitor Blood Pressure Position Semi-Fowlers Blood Pressure Location Left Forearm Pulse Ox 96 95 Oxygen Delivery Method Mechanical Ventilator Fraction of Inspired Oxygen (FIO2) 02/18/25 17:00 02/18/25 17:18 02/18/25 18:00 Temperature Temperature Source Pulse Rate 61 62 61 Pulse Strength Respiratory Rate 18 18 16 Respiratory Effort Respiratory Depth Respiratory Pattern Normal Blood Pressure 130/52 H 141/60 H Blood Pressure Mean 78 87 Blood Pressure Source Monitor Monitor Blood Pressure Position Semi-Fowlers Semi-Fowlers Blood Pressure Location Left Forearm Left Forearm Pulse Ox 96 97 97 Oxygen Delivery Method Mechanical Ventilator Mechanical Ventilator Fraction of Inspired Oxygen (FIO2) 02/18/25 19:00 02/18/25 19:05 02/18/25 20:00 Temperature Temperature Source Pulse Rate 62 64 62 Pulse Strength Respiratory Rate 19 H 14 Respiratory Effort Respiratory Depth Respiratory Pattern Normal Blood Pressure 134/65 H Blood Pressure Mean 88 Blood Pressure Source Monitor Blood Pressure Position Semi-Fowlers Blood Pressure Location Left Arm Pulse Ox 94 97 Oxygen Delivery Method Mechanical Ventilator Fraction of Inspired Oxygen (FIO2) 02/18/25 20:00 02/18/25 20:00 02/18/25 21:00 Temperature Temperature Source Pulse Rate 61 63 Pulse Strength Respiratory Rate 20 H 14 Respiratory Effort Mechanically Ventilated Respiratory Depth Normal Respiratory Pattern Normal Blood Pressure 135/54 H 139/60 H Blood Pressure Mean 81 86 Blood Pressure Source Monitor Monitor Blood Pressure Position Semi-Fowlers Semi-Fowlers Blood Pressure Location Left Arm Left Arm Pulse Ox 100 95 Oxygen Delivery Method Mechanical Ventilator Mechanical Ventilator Mechanical Ventilator Fraction of Inspired Oxygen (FIO2) 02/18/25 21:45 02/18/25 21:58 02/18/25 22:00 Temperature 97.5 F L Temperature Source Temporal Pulse Rate 60 62 Pulse Strength Normal (2+) Respiratory Rate 17 Respiratory Effort Respiratory Depth Respiratory Pattern Blood Pressure 139/60 H 137/54 H Blood Pressure Mean 81 Blood Pressure Source Monitor Blood Pressure Position Semi-Fowlers Blood Pressure Location Left Arm Pulse Ox 93 Oxygen Delivery Method Mechanical Ventilator Fraction of Inspired Oxygen (FIO2) 02/18/25 22:25 02/18/25 22:35 02/18/25 23:00 Temperature Temperature Source Pulse Rate 60 64 60 Pulse Strength Respiratory Rate 18 16 16 Respiratory Effort Respiratory Depth Respiratory Pattern Normal Normal Blood Pressure 136/48 H Blood Pressure Mean 77 Blood Pressure Source Monitor Blood Pressure Position Semi-Fowlers Blood Pressure Location Left Arm Pulse Ox 95 93 Oxygen Delivery Method Mechanical Ventilator Fraction of Inspired Oxygen (FIO2) 02/18/25 23:00 02/19/25 00:00 02/19/25 00:00 Temperature 97.1 F L Temperature Source Temporal Pulse Rate 60 62 Pulse Strength Respiratory Rate 14 Respiratory Effort Mechanically Ventilated Respiratory Depth Normal Respiratory Pattern Normal Blood Pressure 106/53 L Blood Pressure Mean 70 Blood Pressure Source Monitor Blood Pressure Position Semi-Fowlers Blood Pressure Location Left Arm Pulse Ox 94 Oxygen Delivery Method Mechanical Ventilator Mechanical Ventilator Fraction of Inspired Oxygen (FIO2) 02/19/25 01:00 02/19/25 01:40 02/19/25 02:00 Temperature Temperature Source Pulse Rate 65 60 63 Pulse Strength Respiratory Rate 16 14 15 Respiratory Effort Respiratory Depth Respiratory Pattern Normal Blood Pressure 116/46 L 115/57 L Blood Pressure Mean 69 76 Blood Pressure Source Monitor Blood Pressure Position Semi-Fowlers Semi-Fowlers Blood Pressure Location Left Arm Left Arm Pulse Ox 95 95 Oxygen Delivery Method Mechanical Ventilator Mechanical Ventilator Fraction of Inspired Oxygen (FIO2) 02/19/25 03:00 02/19/25 03:00 02/19/25 04:00 Temperature 97.1 F L Temperature Source Temporal Pulse Rate 60 60 63 Pulse Strength Respiratory Rate 14 14 Respiratory Effort Respiratory Depth Respiratory Pattern Blood Pressure 117/63 125/78 H Blood Pressure Mean 81 93 Blood Pressure Source Monitor Monitor Blood Pressure Position Semi-Fowlers Semi-Fowlers Blood Pressure Location Left Arm Left Arm Pulse Ox 95 94 Oxygen Delivery Method Mechanical Ventilator Mechanical Ventilator Fraction of Inspired Oxygen (FIO2) 24 02/19/25 04:00 02/19/25 04:55 02/19/25 05:00 Temperature Temperature Source Pulse Rate 67 64 Pulse Strength Respiratory Rate 22 H 18 Respiratory Effort Mechanically Ventilated Respiratory Depth Normal Respiratory Pattern Normal Normal Blood Pressure 140/65 H Blood Pressure Mean 90 Blood Pressure Source Monitor Blood Pressure Position Semi-Fowlers Blood Pressure Location Left Arm Pulse Ox 95 97 Oxygen Delivery Method Mechanical Ventilator Mechanical Ventilator Fraction of Inspired Oxygen (FIO2) 24 02/19/25 05:52 02/19/25 06:00 02/19/25 07:00 Temperature Temperature Source Pulse Rate 60 62 62 Pulse Strength Respiratory Rate 15 16 Respiratory Effort Respiratory Depth Respiratory Pattern Blood Pressure 140/65 H 138/74 H 113/81 H Blood Pressure Mean 95 91 Blood Pressure Source Monitor Monitor Blood Pressure Position Semi-Fowlers Semi-Fowlers Blood Pressure Location Left Arm Left Arm Pulse Ox 96 97 Oxygen Delivery Method Mechanical Ventilator Mechanical Ventilator Fraction of Inspired Oxygen (FIO2) 02/19/25 07:00 02/19/25 07:01 02/19/25 07:45 Temperature Temperature Source Pulse Rate 63 66 Pulse Strength Respiratory Rate 23 H 30 H Respiratory Effort Respiratory Depth Respiratory Pattern Normal Blood Pressure Blood Pressure Mean Blood Pressure Source Blood Pressure Position Blood Pressure Location Pulse Ox 98 Oxygen Delivery Method Fraction of Inspired Oxygen (FIO2) 02/19/25 08:00 02/19/25 08:00 02/19/25 08:50 Temperature 98.2 F Temperature Source Temporal Pulse Rate 63 Pulse Strength Respiratory Rate 16 Respiratory Effort Mechanically Ventilated Respiratory Depth Normal Respiratory Pattern Normal Blood Pressure 127/62 H Blood Pressure Mean 83 Blood Pressure Source Monitor Blood Pressure Position Semi-Fowlers Blood Pressure Location Left Arm Pulse Ox 95 96 Oxygen Delivery Method Mechanical Ventilator Mechanical Ventilator Fraction of Inspired Oxygen (FIO2) 24 02/19/25 08:52 02/19/25 09:00 02/19/25 09:52 Temperature Temperature Source Pulse Rate 63 Pulse Strength Normal (2+) Respiratory Rate 20 H Respiratory Effort Respiratory Depth Respiratory Pattern Blood Pressure 101/45 L Blood Pressure Mean 63 Blood Pressure Source Monitor Blood Pressure Position Semi-Fowlers Blood Pressure Location Right Forearm Pulse Ox 96 97 Oxygen Delivery Method Mechanical Ventilator Fraction of Inspired Oxygen (FIO2) 24 02/19/25 10:00 02/19/25 10:03 02/19/25 11:00 Temperature Temperature Source Pulse Rate 60 62 60 Pulse Strength Respiratory Rate 14 16 16 Respiratory Effort Respiratory Depth Respiratory Pattern Normal Blood Pressure 118/51 L 127/54 H Blood Pressure Mean 73 78 Blood Pressure Source Monitor Monitor Blood Pressure Position Semi-Fowlers Semi-Fowlers Blood Pressure Location Right Forearm Right Forearm Pulse Ox 95 96 97 Oxygen Delivery Method Mechanical Ventilator Mechanical Ventilator Fraction of Inspired Oxygen (FIO2) 24 24 24 02/19/25 11:00 02/19/25 11:32 Temperature Temperature Source Pulse Rate 60 Pulse Strength Respiratory Rate Respiratory Effort Mechanically Ventilated Respiratory Depth Normal Respiratory Pattern Normal Blood Pressure Blood Pressure Mean Blood Pressure Source Blood Pressure Position Blood Pressure Location Pulse Ox Oxygen Delivery Method Mechanical Ventilator Fraction of Inspired Oxygen (FIO2) 24 Weight Weight: 235 lb 10.786 oz Body Mass Index (BMI) 39.2 Physical Exam Const alert and no apparent distress General Appearance: cooperative, intubated and patient mechanically ventilated HEENT normocephalic and head/scalp atraumatic Eyes PERRL, EOMs intact bilaterally and conjunctivae normal Neck no lymphadenopathy, supple and no JVD Lymph Lymphatic: no lymphadenopathy noted and no lymphedema noted Cardio regular rate, regular rhythm, S1 normal heart sound, S2 normal heart sound and no murmurs GI normal to inspection, nondistended, normoactive bowel sounds, soft to palpation, non-tender and non-distended; Negative for hepatosplenomegaly Extremity no clubbing, cyanosis or edema General Extremity: edema and no tenderness to palpation of joints or extremities Skin no rashes or lesions noted General Skin Exam: no breakdown Results Lab / Micro Data 02/19/25 04:16 02/19/25 04:16 Labs: Laboratory Results - last 24 hr 02/18/25 12:28: POC Glucose 181 H 02/18/25 17:43: POC Glucose 178 H 02/19/25 04:16: WBC 13.9 H, RBC 3.56 L, Hgb 7.8 L, Hct 26.6 L, MCV 74.7 L, MCH 21.9 L, MCHC 29.3 L, RDW Std Deviation 52.3 H, RDW Coeff of Bulmaro 19.7 H, Plt Count 359, MPV 11.4, Immature Gran % (Auto) 0.600, Neut % (Auto) 82.7 H, Lymph % (Auto) 7.3 L, [place] % (Auto) 6.8, Eos % (Auto) 1.9, Baso % (Auto) 0.7, Absolute Neuts (auto) 11.5 H, Absolute Lymphs (auto) 1.01, Nucleated RBC % 0, Sodium 130 L, Potassium 3.9, Chloride 96 L, Carbon Dioxide 20.2 L, Anion Gap 14, BUN 79 H, Creatinine 2.50 H, Estim Creat Clear Calc 23.26 L, Est GFR (MDRD) Non-Af 19 L, BUN/Creatinine Ratio 31.5 H, Glucose 206 H, Calcium 9.0 02/19/25 05:56: POC Glucose 214 H Rhythm Strip Rhythm Strip: Sinus Rhythm Rate: 104 Assessment & Plan Assessment/Plan (1) Acute respiratory failure with hypoxia and hypercarbia: (2) Acute on chronic combined systolic (congestive) and diastolic (congestive) heart failure: (3) Cardiac LV ejection fraction 10-20%: (4) Cellulitis of right anterior lower leg: (5) Protein calorie malnutrition: PLAN: Plan 74-year-old with Acute hypoxic and hypercapnic respiratory failure due to acute exacerbation of combined heart failure currently intubated and sedated. Her family also deciding about if they want trach or peg. I can be available to do the PEG tube if the family decides they want to pursue that procedure. Charges/Coding Visit Charges Inpatient E&M: 85423 Init Hosp L3
[2025-02-19 13:21] LABS: Bedside Glucose 157 mg/dL (74-106)
--- NOTE | 2025-02-19 16:20 | NURSING ---
Attempted to call ENT consult. Office closed. Called steam plant control room operator for ENT membership correspondent, who stated Dr. David Irving is the one membership correspondent, however is not taking new consults, Dr. Small will be on tomorrow (02/20) for the new consults.
[2025-02-19 17:32] LABS: Bedside Glucose 150 mg/dL (74-106)
[2025-02-19] MEDS: Atorvastatin Calcium 40 MG Tablet PO (21:19)
[2025-02-19 23:41] LABS: Bedside Glucose 151 mg/dL (74-106)
[2025-02-20] VITALS (49 sets, daily range): BP systolic 110–172; BP diastolic 43–81; PULSE 53–99; RESP 14–29; TEMP 36.1–36.8; O2SAT 93–99; BMI 40.1; BMI 39.4; BMI 38.2
[2025-02-20] MEDS: CHLORHEXIDINE GLUC 2% CLOTH 1 EACH TOWELETTE TOPICAL (00:22)
[2025-02-20 00:37] LABS: Bedside Glucose 208 mg/dL (74-106)
[2025-02-20] MEDS: Albuterol 2.5 MG/3 ML VIAL.NEB. INHALATION ×3 (02:43→13:52)
[2025-02-20 03:54] LABS: Absolute Lymphocyte Count 1.04 X10^3/uL (0.83-4.51); Absolute Neutrophil Count 9.6 X10^3/uL (2.0-7.7); Basophil% 0.8 % (0-1); Eosinophil# 0.24 X10^3/uL; Hematocrit 28.1 % (37-47); Hemoglobin 8.3 g/dL (12.0-15.0); Lymphocyte # 1.04 X10^3/ul (0.83-4.51); Lymphocyte % 8.8 % (19-41); Mean Corp Hgb Conc 29.5 g/dL (32-36); Mean Corpuscular Hgb 21.7 pg (27.0-32.0); Mean Corpuscular Volume 73.4 fL (81-99); Mean Platelet Vol. 10.7 fl (6.2-12.0); Monocyte# 0.78 X10^3/uL; Monocyte% 6.6 % (0-10); NRBC Flagged by Analyzer 0 % (0-5); Neutrophil # 9.59 X10^3/uL (2.7-7.7); Neutrophil % 81.3 % (47-70); Platelet Count 373 K/mm3 (150-450); RBC Distribution Width CV 19.6 % (11.6-14.6); RBC Distribution Width SD 50.8 fl (35.1-43.9); Red Blood Count 3.83 M/mm3 (4.2-5.4); White Blood Count 11.8 K/mm3 (4.4-11.0)
[2025-02-20] MEDS: dexMEDEtomidine 1,000 MCG in 0.9% Normal Saline (250mL Bag) 240 ML 27.2 MCG CONT INF (04:00)
[2025-02-20 04:21] LABS: Anion Gap 14 (5-15); BUN 87 mg/dL (4-19); BUN/Creat Ratio 35.1 RATIO (10-20); Carbon Dioxide 19.6 mmol/L (21.0-32.0); Chloride 96 mmol/L (98-108); Creatinine, Serum 2.47 mg/dL (0.70-1.20); EST Glomerular Filtration Rate 20 (>60); Estimated Creatinine Clearance 23.85 ml/min (50-250); Glucose 143 mg/dL (70-99); Potassium 3.8 mmol/L (3.3-5.1); Sodium Level 129 mmol/L (133-145)
[2025-02-20] MEDS: hydrALAZINE 10 MG Tablet PO ×3 (05:08→21:09)
[2025-02-20] MEDS: Menthol/Lanolin/Calamine/Znox 113 GM Tube 1 APPLIC TOPICAL ×3 (05:09→21:10)
[2025-02-20] MEDS: guaiFENesin 10 ML UDC (200MG/10ML) NG ×3 (05:09→21:08)
[2025-02-20 05:34] LABS: Bedside Glucose 142 mg/dL (74-106)
[2025-02-20] MEDS: Senna/Docusate Sodium 1 Tablet 2 TABLET PO ×2 (07:18→21:09)
[2025-02-20] MEDS: Chlorhexidine 15 ML PO ×2 (07:19→21:06)
[2025-02-20] MEDS: Insulin Glargine-YFGN 100 UNIT/ML Pen 35 UNIT SC ×2 (07:20→21:08)
[2025-02-20] MEDS: Isosorbide DN 10 MG Tablet 5 MG PO ×2 (07:20→21:09)
[2025-02-20] MEDS: FLUoxetine 10 MG Capsule PO (07:21)
[2025-02-20] MEDS: Furosemide 40 MG/4 ML Vial IV ×2 (07:23→16:34)
[2025-02-20] MEDS: Pantoprazole Sodium 40 MG in 0.9% Normal Saline (100mL MB+) 100 ML 330 MG IV (07:23)
[2025-02-20] MEDS: NEPRO 1,000 ML 30 ML GT (07:23)
[2025-02-20] MEDS: Heparin 10,000 UNITS/10 ML Vial 2000 UNITS IV (08:43)
[2025-02-20] MEDS: PureFlow B 3K Dialysis Soln 1 BAG 6 BAG PF (08:43)
[2025-02-20] MEDS: Heparin 10,000 UNITS/10 ML Vial IV (08:43)
[2025-02-20] MEDS: 0.9% Normal Saline 1,000 ML IV.SOLN. 1000 ML OPERA.SITE (08:43)
--- NOTE | 2025-02-20 09:17 | PCM.PROGNOTE ---
Subjective Subjective Patient seen and examined. She still remains intubated and sedated. She has failed multiple spontaneous breathing trials. ENT and GI consulted for trach and PEG respectively. She is for dialysis today. Objective Data Objective Data Vital Signs: Vital Signs Temp Pulse Resp BP Pulse Ox O2 Del Method O2 Flow Rate 97.9 F 56 L 26 H 125/46 H 95 Mechanical Ventilator 95 02/20/25 08:00 02/20/25 09:00 02/20/25 09:00 02/20/25 09:00 02/20/25 09:00 02/20/25 09:00 02/15/25 15:15 FiO2 24 02/20/25 09:00 Oxygen Flow Rate (L/min) 95 Oxygen Delivery Method Mechanical Ventilator Weight: 236 lb 12.423 oz Body Mass Index (BMI) 39.4 Intake & Output: Intake and Output for Last 24 Hours 02/18/25 02/19/25 02/20/25 23:59 23:59 23:59 Intake Total 1960.28 / 2117.48 2985.58 / 3142.78 1190.46 / 1190.46 Output Total 295 / 295 650 / 650 300 / 300 Balance 1665.28 / 1822.48 2335.58 / 2492.78 890.46 / 890.46 Lab / Micro Data 02/20/25 03:42 02/20/25 03:42 Labs: Laboratory Results - last 24 hr 02/18/25 23:09: POC Glucose 208 H 02/19/25 12:57: POC Glucose 157 H 02/19/25 17:14: POC Glucose 150 H 02/19/25 23:19: POC Glucose 151 H 02/20/25 03:42: WBC 11.8 H, RBC 3.83 L, Hgb 8.3 L, Hct 28.1 L, MCV 73.4 L, MCH 21.7 L, MCHC 29.5 L, RDW Std Deviation 50.8 H, RDW Coeff of Bulmaro 19.6 H, Plt Count 373, MPV 10.7, Immature Gran % (Auto) 0.500, Neut % (Auto) 81.3 H, Lymph % (Auto) 8.8 L, Benson % (Auto) 6.6, Eos % (Auto) 2.0, Baso % (Auto) 0.8, Absolute Neuts (auto) 9.6 H, Absolute Lymphs (auto) 1.04, Nucleated RBC % 0, Sodium 129 L, Potassium 3.8, Chloride 96 L, Carbon Dioxide 19.6 L, Anion Gap 14, BUN 87 H, Creatinine 2.47 H, Estim Creat Clear Calc 23.85 L, Est GFR (MDRD) Non-Af 20 L, BUN/Creatinine Ratio 35.1 H, Glucose 143 H, Calcium 9.0 02/20/25 05:08: POC Glucose 142 H Micro: Microbiology 02/05/25 12:15 Blood Culture (Wb) - Left Wrist Blood Culture - Final No growth in 5 days. 02/05/25 12:04 Blood Culture (Wb) - Right Hand Blood Culture - Final No growth in 5 days. 02/08/25 11:15 Sputum, Induced/Lukens Gram Stain - Final 02/08/25 11:15 Sputum, Induced/Lukens Respiratory Culture - Final Mixed normal respiratory dave. No Streptococcus pneumoniae, beta-hemolytic Streptococcus or Staphylococcus aureus isolated. 02/08/25 00:05 Stool Stool Occult Blood (TREVOR) - Final 02/05/25 11:20 Urine Catheter - Catheter Urine Culture - Final Presumptive E. coli 02/05/25 16:50 Nasal Secretion MRSA (PCR) - Final 02/05/25 16:50 Wound - Leg, Left Skin and Soft Tissue MRSA/MSSA (PCR - Final Rhythm Strip Rhythm Strip: Sinus Rhythm Rate: 104 Physical Exam Const alert and no apparent distress Constitutional Narrative: flat affect, RASS score is 0. General Appearance: cooperative, intubated and patient mechanically ventilated HEENT normocephalic and head/scalp atraumatic Eyes PERRL, EOMs intact bilaterally and conjunctivae normal Neck no lymphadenopathy, supple and no JVD Lymph Lymphatic: no lymphadenopathy noted and no lymphedema noted Resp Resp Narrative: mildly diminished breath sounds bibasally, no wheezes or crackles. On the ventilator, with PEEP of 5 and FiO2 of 24 Auscultation: Negative for crackles, rales, rhonchi or wheezes Cardio regular rate, regular rhythm, S1 normal heart sound, S2 normal heart sound and no murmurs GI normal to inspection, nondistended, normoactive bowel sounds, soft to palpation, non-tender and non-distended; Negative for hepatosplenomegaly Extremity no clubbing, cyanosis or edema General Extremity: edema and no tenderness to palpation of joints or extremities Skin no rashes or lesions noted General Skin Exam: no breakdown Neuro CN's II-XII intact bilaterally and no focal motor deficits Neuro Narrative: Follows simple commands. RASS score is 0 Sensorium / Orientation: sedated on vent Motor Exam: general weakness Psych Psych Narrative: alert, flat affect. RASS score is 0; on precedex drip. Appearance: intubated Mood & Affect: flat affect Assessment & Plan Assessment/Plan (1) Acute respiratory failure with hypoxia and hypercarbia: (2) Acute on chronic combined systolic (congestive) and diastolic (congestive) heart failure: (3) Cardiac LV ejection fraction 10-20%: (4) Cellulitis of right anterior lower leg: PLAN: Plan #Acute hypoxic and hypercapnic respiratory failure due to acute exacerbation of combined heart failure Remains intubated. Remains on minimal vent settings with PEEP of 5 and FiO2 of 24. However she has failed numerous spontaneous breathing trials. Titrate oxygen to maintain saturation above 90%. She is having dialysis also which should help with fluid removal. Management as per critical care. Critical care recommended ENT consult for Trach and GI for PEG. ENT not available this weekend. ENT and GI consulted for Trach and PEG. #Acute on chronic combined heart failure On IV Lasix and also received metolazone. Was initially on Lasix drip but was switched to IV Lasix bolus doses due to renal function worsening on carvedilol #Elevated troponins: Thought to be due to demand ischemia and therefore type II non-STEMI. She does have a history of CAD s/p stents. Carvedilol held due to CHF exacerbation and fluid overload and to be resumed once fluid overload resolves. On Imdur #ELIDA on CKD IV: Patient requiring dialysis. Nephrology on board. Cr today is 2.47. For dialysis today #Chronic iron deficiency anemia: Hb today is 8.3. Will monitor and transfuse if Hb <7 #Type 2 diabetes mellitus: On insulin sliding scale. Accu-Cheks every 6 hourly as patient is n.p.o. On lantus 35 units bid. 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 #History of CVA: On aspirin and high intensity statin #Depression and anxiety: on fluoxetine. DVT prophylaxis: on heparin. Charges/Coding Visit Charges Inpatient E&M: 56775 Subs Hosp L2
--- NOTE | 2025-02-20 09:23 | CPS ---
Per Dr Pool, decreased pt to a PS of 5 at this time
--- NOTE | 2025-02-20 09:24 | PN.CC_ITS ---
Assessment & Plan Assessment/Plan (1) Acute on chronic combined systolic (congestive) and diastolic (congestive) heart failure: (2) Urinary tract infection: (3) Acute respiratory failure with hypoxia and hypercarbia: (4) Chronic kidney disease (CKD): QUALIFIERS: Chronic kidney disease stage: stage 4 (GFR 15-29) Q ualified Code(s): N18.4 - Chronic kidney disease, stage 4 (severe) PLAN: Plan RECOMMENDATIONS: 1. Continue assist-control mode of mechanical ventilation. Wean FiO2 and PEEP as tolerated. 2. Continue daily attempts at spontaneous breathing trials. 3. Proceed with tracheostomy and PEG tube placement, if feasible, given failure to wean from ventilator. 4. Ongoing diuresis along with goal-directed medical therapy. 5. Continue tube feeding as tolerated. 6. Continue appropriate ICU prophylaxis. 7. Ongoing dialysis support per nephrology recommendations. IMPRESSIONS: 1. Acute respiratory failure with hypoxemia and hypercapnia secondary to decompensated heart failure The patient was initially admitted to the hospital with acute decompensated congestive heart failure and UTI, but worsened from a respiratory perspective on the morning of February 08, with increasing oxygen requirement and lethargy. Subsequent ABG demonstrated acute CO2 retention, which was refractory to the use of noninvasive positive pressure ventilatory support. Therefore, the patient was intubated. The patient appears to have stabilized from a respiratory perspective following intubation. She will be continued on assist-control mode of mechanical ventilation, with a goal to wean FiO2 and PEEP as tolerated. Unfortunately, despite continued supportive care, the patient has failed multiple attempts at spontaneous breathing trials. She is significantly debilitated and will likely require tracheostomy and PEG tube placement. 2. Acute on chronic combined systolic and diastolic heart failure Continue medical management per cardiology recommendations. Unclear long-term prognosis. 3. Acute on chronic kidney disease Suspect that this is related to underlying cardiorenal syndrome. The patient is being followed by nephrology with plans for ongoing hemodialysis. 4. Morbid obesity/anemia/diabetes mellitus/history of CVA/depression/anxiety Complicates care, management, recovery and prognosis. Continue supportive measures as noted above. Continue tube feeding as tolerated. TIME: 33 minutes of critical care time, independent of procedures, was spent addressing the patient's acute respiratory failure with hypoxemia and hypercapnia, acute decompensated congestive heart failure, acute on chronic kidney disease, review of all data and collaboration with the care team. Subjective Subjective The patient was seen and examined at the bedside this morning. Events from the last 24 hours have been reviewed. The patient is currently afebrile, hemodynamically stable and maintaining appropriate oxygen saturations on assist- control mode of mechanical ventilation. The patient is documented to be overall net -5.8 L for the hospitalization. Hemoglobin and platelet count are stable. Creatinine is stable at 2.47. I did speak personally with the ENT this morning regarding the need for tracheostomy placement. Objective Data Objective Data The patient's most recent lab work, culture data and imaging studies have all been personally reviewed. Surface echocardiogram demonstrated an ejection fraction of 15%. Urine culture was positive for pansensitive E. coli. Blood cultures have not demonstrated any growth to date. Sputum culture has not demonstrated any growth to date. Vital Signs: Vital Signs Temp Pulse Resp BP Pulse Ox O2 Del Method O2 Flow Rate 97.9 F 57 L 20 H 115/63 96 Mechanical Ventilator 95 02/20/25 08:00 02/20/25 09:15 02/20/25 09:15 02/20/25 09:15 02/20/25 09:15 02/20/25 09:15 02/15/25 15:15 FiO2 24 02/20/25 09:15 Oxygen Flow Rate (L/min) 95 Oxygen Delivery Method Mechanical Ventilator Weight: 236 lb 12.423 oz Body Mass Index (BMI) 39.4 Intake & Output: Intake and Output for Last 24 Hours 02/18/25 02/19/25 02/20/25 23:59 23:59 23:59 Intake Total 1960.28 / 2117.48 2985.58 / 3142.78 1190.46 / 1190.46 Output Total 295 / 295 650 / 650 300 / 300 Balance 1665.28 / 1822.48 2335.58 / 2492.78 890.46 / 890.46 Lab / Micro Data Attestation: I reviewed the patient's lab results. 02/20/25 03:42 02/20/25 03:42 Labs: Laboratory Results - last 24 hr 02/18/25 23:09: POC Glucose 208 H 02/19/25 12:57: POC Glucose 157 H 02/19/25 17:14: POC Glucose 150 H 02/19/25 23:19: POC Glucose 151 H 02/20/25 03:42: WBC 11.8 H, RBC 3.83 L, Hgb 8.3 L, Hct 28.1 L, MCV 73.4 L, MCH 21.7 L, MCHC 29.5 L, RDW Std Deviation 50.8 H, RDW Coeff of Bulmaro 19.6 H, Plt Count 373, MPV 10.7, Immature Gran % (Auto) 0.500, Neut % (Auto) 81.3 H, Lymph % (Auto) 8.8 L, Mcmullen % (Auto) 6.6, Eos % (Auto) 2.0, Baso % (Auto) 0.8, Absolute Neuts (auto) 9.6 H, Absolute Lymphs (auto) 1.04, Nucleated RBC % 0, Sodium 129 L , Potassium 3.8, Chloride 96 L, Carbon Dioxide 19.6 L, Anion Gap 14, BUN 87 H, C reatinine 2.47 H, Estim Creat Clear Calc 23.85 L, Est GFR (MDRD) Non-Af 20 L, B UN/Creatinine Ratio 35.1 H, Glucose 143 H, Calcium 9.0 02/20/25 05:08: POC Glucose 142 H Micro: Microbiology 02/05/25 12:15 Blood Culture (Wb) - Left Wrist Blood Culture - Final No growth in 5 days. 02/05/25 12:04 Blood Culture (Wb) - Right Hand Blood Culture - Final No growth in 5 days. 02/08/25 11:15 Sputum, Induced/Lukens Gram Stain - Final 02/08/25 11:15 Sputum, Induced/Lukens Respiratory Culture - Final Mixed normal respiratory dave. No Streptococcus pneumoniae, beta-hemolytic Streptococcus or Staphylococcus aureus isolated. 02/08/25 00:05 Stool Stool Occult Blood (TREVOR) - Final 02/05/25 11:20 Urine Catheter - Catheter Urine Culture - Final Presumptive E. coli 02/05/25 16:50 Nasal Secretion MRSA (PCR) - Final 02/05/25 16:50 Wound - Leg, Left Skin and Soft Tissue MRSA/MSSA (PCR - Final ABG Data ABG results: ABG 02/08/25 02/08/25 02/08/25 08:47 08:54 10:37 Specimen Type ART Cancelled ART Sample Site R Radial Cancelled L Radial pH 7.11 L* Cancelled 7.12 L* Bicarbonate Actual 26.2 H Cancelled 26.9 H Total CO2 29 Cancelled 29 Base Excess -3 L Cancelled -3 L O2 Saturation 84 L Cancelled 91 L O2 % 10.0 Cancelled 80.0 ABG pCO2 83.0 H* Cancelled 83.2 H* ABG pO2 68 L Cancelled 86 Harvey Test Positive Cancelled Positive Respiration Rate Cancelled 12 O2 Delivery Device HFNC Cancelled BiPAP Liter Flow Cancelled Minute Volume Cancelled Vent Mode Not entered Cancelled Not entered Inspiratory Time Cancelled Expiratory Time Cancelled Tidal Volume Cancelled Mean Airway Pressure Cancelled POC PEEP Cancelled 8 Peak Inspir Pressure Cancelled POC Pressure Suppt Cancelled Pressure Control Cancelled Pressure High Cancelled Pressure Low Cancelled Time High Cancelled Time Low Cancelled EPAP Cancelled IPAP Cancelled Blood Gas Comments Cancelled Crit Call To/Read Back Yes Cancelled Yes Blood Gas Notified Whom BROWN Cancelled BROWN Blood Gas Notified Time 08:48:45 Cancelled 10:38:53 Clinical Comments Cancelled 02/08/25 12:42 Specimen Type ART Sample Site L Radial pH 7.32 L Bicarbonate Actual 27.2 H Total CO2 29 Base Excess 1 O2 Saturation 95 O2 % 90.0 ABG pCO2 53.3 H ABG pO2 86 Harvey Test Positive Respiration Rate 14 O2 Delivery Device Adult Vent Liter Flow Minute Volume Vent Mode AC Inspiratory Time Expiratory Time Tidal Volume 450.0 Mean Airway Pressure POC PEEP 5 Peak Inspir Pressure POC Pressure Suppt Pressure Control Pressure High Pressure Low Time High Time Low EPAP IPAP Blood Gas Comments Crit Call To/Read Back Blood Gas Notified Whom Blood Gas Notified Time Clinical Comments Radiography Diagnostic Testing: Radiology Impression Chest X-Ray 02/08/25 09:30 IMPRESSION: Progressive bilateral pleural effusions worse on the left side with bibasilar atelectasis and worsening CHF. Reading Location: [id number] Chest X-Ray 02/08/25 11:40 IMPRESSION: Bilateral pleural effusions and the appearance of the lung parenchyma appears unchanged from the prior chest x-ray of earlier the same day. Interval placement of endotracheal tube, with tip approximately 4 cm above the asia.. Interval placement of nasogastric tube, with tip projecting of the proximal to mid stomach. A right jugular central venous catheter is seen, with tip projecting over the SVC. No pneumothorax is noted. The cardiomediastinal silhouette is unchanged. Reading Location: [place] [id number] Rhythm Strip Rhythm Strip: Sinus Rhythm Rate: 104 Physical Exam Const Constitutional Narrative: Remains intubated, sedated and mechanically ventilated. HEENT normocephalic and head/scalp atraumatic Mouth: endotracheal tube in place and OG tube in place Eyes PERRL, EOMs intact bilaterally and conjunctivae normal Neck supple General: trachea midline Chest inspection of chest normal Resp Auscultation: diminished lung sounds; Negative for rales, rhonchi or wheezes Cardio regular rate and regular rhythm GI normal to inspection, nondistended, normoactive bowel sounds Extremity General Extremity: edema; Negative for clubbing Skin Skin Narrative: Wrapped extremities. Neuro Sensorium / Orientation: sedated on vent Charges/Coding Procedures Hospitalists Procedures: 64207 Critical Care 1st Hr
--- NOTE | 2025-02-20 10:39 | CASEMGMT ---
RN CM NOTE: Per Dr Pool, plan is for pt to have a trach and PEG placed. RN CM to room. Pt resting in bed, receiving HD, awake & is on SBT at this time. RN CM introduced self and role and inquired about discharge planning re: next level of care for her care needs. She responded by nodding and shaking her head to questions and communicated to this RN CM that she would like RN CM to call her to discuss this further. Call placed to . Introduced self and role. verifies he does wish to proceed w/having a trach and PEG placed for pt and states that pt did indicate to them (he and her son) that these were her wishes as well. Discussed discharge planning w/him and the next level of care and information provided. expressed that his priority is ensuring that pt receives the necessary care she needs and expressed that he does not want for her to return to somewhere like [facility]. Information provided re: LTAC's and made aware they are equipped to manage the complexity of her care needs, including HD, trach, PEG, and possible ventilator needs. expressed understanding and agreed that an LTAC would be the most appropriate setting for his at this time. Verbal list of LTAC's within a 40-mile radius reviewed w/. He chose [facility] as his 1st choice and then [facility] as his second choice. Salo denies having further questions or needs at this time. Call placed to Maximo @ [facility] re: referral and was made aware referral will be sent via [facility]. He states he is pretty certain that [facility] requires 3 weaning trials from the vent once trach has been placed and he is also pretty certain the 3 weaning trials need to be done on 3 separate days. Clotilde DANGN RN CM
--- NOTE | 2025-02-20 11:00 | CASEMGMT ---
Addendum entered by Mary Spears 02/20/25 15:43: Pt has been accepted by [facility]. Mary Spears DC Planning Asst. Original Note: Discharge Planning Referral sent to [facility]. Mary Spears DC Planning Asst.
[2025-02-20 11:09] LABS: Bedside Glucose 111 mg/dL (74-106)
[2025-02-20] MEDS: dexMEDEtomidine 1,000 MCG in 0.9% Normal Saline (250mL Bag) 240 ML 27.4 MCG CONT INF ×2 (13:18→23:00)
--- NOTE | 2025-02-20 13:34 | PN.RENAL_ITS ---
Subjective Subjective no overnight events. Underwent dialysis today with 3.1L fluid removed. Objective Data Objective Data Vital Signs: Vital Signs Temp Pulse Resp BP Pulse Ox O2 Del Method O2 Flow Rate 97.2 F L 60 18 152/54 H 96 Mechanical Ventilator 95 02/20/25 12:00 02/20/25 13:18 02/20/25 13:00 02/20/25 13:00 02/20/25 13:00 02/20/25 13:00 02/15/25 15:15 FiO2 24 02/20/25 13:00 Oxygen Flow Rate (L/min) 95 Oxygen Delivery Method Mechanical Ventilator Weight: 104.3 kg Body Mass Index (BMI) 38.2 Intake & Output: Intake and Output for Last 24 Hours 02/18/25 02/19/25 02/20/25 23:59 23:59 23:59 Intake Total 1960.28 / 2117.48 2985.58 / 3142.78 1435.03 / 1435.03 Output Total 295 / 295 650 / 650 3570 / 3570 Balance 1665.28 / 1822.48 2335.58 / 2492.78 -2134.97 / -2134.97 Lab / Micro Data 02/20/25 03:42 02/20/25 03:42 Labs: Laboratory Results - last 24 hr 02/18/25 23:09: POC Glucose 208 H 02/19/25 17:14: POC Glucose 150 H 02/19/25 23:19: POC Glucose 151 H 02/20/25 03:42: WBC 11.8 H, RBC 3.83 L, Hgb 8.3 L, Hct 28.1 L, MCV 73.4 L, MCH 21.7 L, MCHC 29.5 L, RDW Std Deviation 50.8 H, RDW Coeff of Bulmaro 19.6 H, Plt Count 373, MPV 10.7, Immature Gran % (Auto) 0.500, Neut % (Auto) 81.3 H, Lymph % (Auto) 8.8 L, Blount % (Auto) 6.6, Eos % (Auto) 2.0, Baso % (Auto) 0.8, Absolute Neuts (auto) 9.6 H, Absolute Lymphs (auto) 1.04, Nucleated RBC % 0, Sodium 129 L , Potassium 3.8, Chloride 96 L, Carbon Dioxide 19.6 L, Anion Gap 14, BUN 87 H, C reatinine 2.47 H, Estim Creat Clear Calc 23.85 L, Est GFR (MDRD) Non-Af 20 L, B UN/Creatinine Ratio 35.1 H, Glucose 143 H, Calcium 9.0 02/20/25 05:08: POC Glucose 142 H 02/20/25 10:50: POC Glucose 111 H Micro: Microbiology 02/05/25 12:15 Blood Culture (Wb) - Left Wrist Blood Culture - Final No growth in 5 days. 02/05/25 12:04 Blood Culture (Wb) - Right Hand Blood Culture - Final No growth in 5 days. 02/08/25 11:15 Sputum, Induced/Lukens Gram Stain - Final 02/08/25 11:15 Sputum, Induced/Lukens Respiratory Culture - Final Mixed normal respiratory dave. No Streptococcus pneumoniae, beta-hemolytic Streptococcus or Staphylococcus aureus isolated. 02/08/25 00:05 Stool Stool Occult Blood (TREVOR) - Final 02/05/25 11:20 Urine Catheter - Catheter Urine Culture - Final Presumptive E. coli 02/05/25 16:50 Nasal Secretion MRSA (PCR) - Final 02/05/25 16:50 Wound - Leg, Left Skin and Soft Tissue MRSA/MSSA (PCR - Final Rhythm Strip Rhythm Strip: Sinus Rhythm Rate: 104 Physical Exam Narrative On ventilator support s1s2 no murmurs Diminished breath sounds abdomen soft Edema bilateral legs morillo + clear yellow urine in bag tunneled HD catheter dressing C/D/I Assessment & Plan Assessment/Plan (1) ELIDA (acute kidney injury): (2) Chronic kidney disease (CKD): QUALIFIERS: Chronic kidney disease stage: stage 4 (GFR 15-29) Q ualified Code(s): N18.4 - Chronic kidney disease, stage 4 (severe) PLAN: Plan Impression/Plan: Patient is a 74-year-old female with past history of type 2 diabetes mellitus, hypertension, CAD, ischemic cardiomyopathy with HFrEF (EF 15%), pulmonary hypertension, stroke, and hyperlipidemia. Patient presents to the hospital on 02/05/2025 with 1 week history of progressively worsening dyspnea and lower extremity edema. Patient was admitted to the hospital for treatment of acute hypoxic respiratory failure requiring NIV. Nephrology is following for ELIDA on CKD. -Hypervolemia acute kidney injury superimposed on CKD stage IV. Baseline SCr 1.80 to 2.00 mg/dL prior to this admission. Suspect ELIDA is secondary to cardiorenal syndrome. Did not respond well to IV diuresis. Started dialysis 02/14/2025. UF 02/15 4L Patient had dialysis today and tolerated 3.1L fluid removal. Continue to monitor for renal recovery, urine output appears to be picking up. Patient has tunneled hemodialysis catheter. Assessment and plan reviewed with Dr. Moss.
[2025-02-20 16:57] LABS: Bedside Glucose 140 mg/dL (74-106)
[2025-02-20] MEDS: Atorvastatin Calcium 40 MG Tablet PO (21:09)
[2025-02-20 21:41] LABS: Bedside Glucose 138 mg/dL (74-106)
[2025-02-20 23:30] LABS: Bedside Glucose 129 mg/dL (74-106)
[2025-02-21] VITALS (34 sets, daily range): BP systolic 109–138; BP diastolic 42–111; PULSE 56–69; RESP 14–38; TEMP 36.3–36.7; O2SAT 93–100; BMI 39.5
[2025-02-21] MEDS: CHLORHEXIDINE GLUC 2% CLOTH 1 EACH TOWELETTE TOPICAL (03:17)
[2025-02-21 03:23] LABS: Absolute Neutrophil Count 7.9 X10^3/uL (2.0-7.7); Basophil# 0.07 X10^3/uL; Basophil% 0.7 % (0-1); Eosinophil# 0.19 X10^3/uL; Eosinophils% 1.9 % (0-5); Hematocrit 28.2 % (37-47); Hemoglobin 8.4 g/dL (12.0-15.0); Lymphocyte % 9.9 % (19-41); Mean Corp Hgb Conc 29.8 g/dL (32-36); Mean Corpuscular Hgb 22.2 pg (27.0-32.0); Mean Corpuscular Volume 74.4 fL (81-99); Mean Platelet Vol. 10.1 fl (6.2-12.0); Monocyte# 0.84 X10^3/uL; Monocyte% 8.3 % (0-10); NRBC Flagged by Analyzer 0 % (0-5); Neutrophil # 7.92 X10^3/uL (2.7-7.7); Neutrophil % 78.7 % (47-70); Platelet Count 392 K/mm3 (150-450); RBC Distribution Width CV 19.6 % (11.6-14.6); RBC Distribution Width SD 51.9 fl (35.1-43.9); Red Blood Count 3.79 M/mm3 (4.2-5.4); White Blood Count 10.1 K/mm3 (4.4-11.0)
--- NOTE | 2025-02-21 03:58 | NURSING ---
0330- temporary dialysis catheter dressing changed by this RN. Pt tolerated well.
[2025-02-21 04:01] LABS: Anion Gap 13 (5-15); BUN 54 mg/dL (4-19); Calcium,Total 9.4 mg/dL (7.6-11.0); Carbon Dioxide 21.7 mmol/L (21.0-32.0); Chloride 97 mmol/L (98-108); Creatinine, Serum 1.75 mg/dL (0.70-1.20); EST Glomerular Filtration Rate 30 (>60); Estimated Creatinine Clearance 33.37 ml/min (50-250); Glucose 120 mg/dL (70-99); Potassium 3.7 mmol/L (3.3-5.1); Sodium Level 132 mmol/L (133-145)
[2025-02-21] MEDS: Albuterol 2.5 MG/3 ML VIAL.NEB. INHALATION ×3 (04:47→19:32)
[2025-02-21] MEDS: Menthol/Lanolin/Calamine/Znox 113 GM Tube 1 APPLIC TOPICAL ×2 (06:03→21:36)
[2025-02-21 06:22] LABS: Bedside Glucose 87 mg/dL (74-106)
[2025-02-21] MEDS: dexMEDEtomidine 1,000 MCG in 0.9% Normal Saline (250mL Bag) 240 ML 26.9 MCG CONT INF ×2 (09:18→18:38)
[2025-02-21] MEDS: Chlorhexidine 15 ML PO ×2 (10:08→21:33)
[2025-02-21] MEDS: Aspirin E.C. 81 MG Tablet PO (10:08)
[2025-02-21] MEDS: Isosorbide DN 10 MG Tablet 5 MG PO ×2 (10:08→21:55)
[2025-02-21] MEDS: Furosemide 40 MG/4 ML Vial IV ×2 (10:09→18:28)
[2025-02-21] MEDS: Polyethylene Glycol 3350 17 GM PACKET PO (10:09)
[2025-02-21] MEDS: FLUoxetine 10 MG Capsule PO (10:09)
[2025-02-21] MEDS: Senna/Docusate Sodium 1 Tablet 2 TABLET PO ×2 (10:10→21:39)
[2025-02-21] MEDS: Pantoprazole Sodium 40 MG in 0.9% Normal Saline (100mL MB+) 100 ML 330 MG IV (10:13)
--- NOTE | 2025-02-21 10:13 | PN.CC_ITS ---
Assessment & Plan Assessment/Plan (1) Acute on chronic combined systolic (congestive) and diastolic (congestive) heart failure: (2) Urinary tract infection: (3) Acute respiratory failure with hypoxia and hypercarbia: (4) Chronic kidney disease (CKD): QUALIFIERS: Chronic kidney disease stage: stage 4 (GFR 15-29) Q ualified Code(s): N18.4 - Chronic kidney disease, stage 4 (severe) PLAN: Plan RECOMMENDATIONS: 1. Continue assist-control mode of mechanical ventilation. Wean FiO2 and PEEP as tolerated. 2. Continue daily attempts at spontaneous breathing trials. 3. Proceed with tracheostomy and PEG tube placement, if feasible, given failure to wean from ventilator. 4. Ongoing diuresis along with goal-directed medical therapy. 5. Continue tube feeding as tolerated. 6. Continue appropriate ICU prophylaxis. 7. Ongoing dialysis support per nephrology recommendations. IMPRESSIONS: 1. Acute respiratory failure with hypoxemia and hypercapnia secondary to decompensated heart failure The patient was initially admitted to the hospital with acute decompensated congestive heart failure and UTI, but worsened from a respiratory perspective on the morning of February 08, with increasing oxygen requirement and lethargy. Subsequent ABG demonstrated acute CO2 retention, which was refractory to the use of noninvasive positive pressure ventilatory support. Therefore, the patient was intubated. The patient appears to have stabilized from a respiratory perspective following intubation. She will be continued on assist-control mode of mechanical ventilation, with a goal to wean FiO2 and PEEP as tolerated. Unfortunately, despite continued supportive care, the patient has failed multiple attempts at spontaneous breathing trials. She is significantly debilitated and will likely require tracheostomy and PEG tube placement. Timing for tracheostomy and PEG tube placement are pending. 2. Acute on chronic combined systolic and diastolic heart failure Continue medical management per cardiology recommendations. Unclear long-term prognosis. 3. Acute on chronic kidney disease Suspect that this is related to underlying cardiorenal syndrome. The patient is being followed by nephrology with plans for ongoing hemodialysis. 4. Morbid obesity/anemia/diabetes mellitus/history of CVA/depression/anxiety Complicates care, management, recovery and prognosis. Continue supportive measures as noted above. Continue tube feeding as tolerated. TIME: 31 minutes of critical care time, independent of procedures, was spent addressing the patient's acute respiratory failure with hypoxemia and hypercapnia, acute decompensated congestive heart failure, acute on chronic kidney disease, review of all data and collaboration with the care team. Subjective Subjective The patient was seen and examined at the bedside this morning. Events from the last 24 hours have been reviewed. The patient is currently afebrile, hemodynamically stable and maintaining appropriate oxygen saturations on assist- control mode mechanical ventilation. When placed on a pressure support trial this morning, the patient once again became tachypneic with tidal volumes in the sub 200 range. She is documented to be overall net -7.4 L for the hospitalization. White blood cell count is within normal limits. Creatinine has improved to 1.75. Objective Data Objective Data The patient's most recent lab work, culture data and imaging studies have all been personally reviewed. Surface echocardiogram demonstrated an ejection fraction of 15%. Urine culture was positive for pansensitive E. coli. Blood cultures have not demonstrated any growth to date. Sputum culture has not demonstrated any growth to date. Vital Signs: Vital Signs Temp Pulse Resp BP Pulse Ox O2 Del Method O2 Flow Rate 97.8 F 59 L 20 H 120/49 L 97 Mechanical Ventilator 95 02/21/25 04:00 02/21/25 08:00 02/21/25 08:00 02/21/25 08:00 02/21/25 08:00 02/21/25 08:00 02/15/25 15:15 FiO2 24 02/21/25 08:00 Oxygen Flow Rate (L/min) 95 Oxygen Delivery Method Mechanical Ventilator Weight: 237 lb 7.005 oz Body Mass Index (BMI) 39.5 Intake & Output: Intake and Output for Last 24 Hours 02/19/25 02/20/25 02/21/25 23:59 23:59 23:59 Intake Total 2985.58 / 3142.78 2503.53 / 2840.93 560.0 / 560.0 Output Total 650 / 650 3820 / 3820 Balance 2335.58 / 2492.78 -1316.47 / -979.07 560.0 / 560.0 Lab / Micro Data Attestation: I reviewed the patient's lab results. 02/21/25 03:14 02/21/25 03:14 Labs: Laboratory Results - last 24 hr 02/20/25 10:50: POC Glucose 111 H 02/20/25 16:34: POC Glucose 140 H 02/20/25 21:06: POC Glucose 138 H 02/20/25 23:08: POC Glucose 129 H 02/21/25 03:14: WBC 10.1, RBC 3.79 L, Hgb 8.4 L, Hct 28.2 L, MCV 74.4 L, MCH 22.2 L, MCHC 29.8 L, RDW Std Deviation 51.9 H, RDW Coeff of Bulmaro 19.6 H, Plt Count 392, MPV 10.1, Immature Gran % (Auto) 0.500, Neut % (Auto) 78.7 H, Lymph % (Auto) 9.9 L, [place] % (Auto) 8.3, Eos % (Auto) 1.9, Baso % (Auto) 0.7, Absolute Neuts (auto) 7.9 H, Absolute Lymphs (auto) 1.00, Nucleated RBC % 0, Sodium 132 L , Potassium 3.7, Chloride 97 L, Carbon Dioxide 21.7, Anion Gap 13, BUN 54 H, C reatinine 1.75 H, Estim Creat Clear Calc 33.37 L, Est GFR (MDRD) Non-Af 30 L, B UN/Creatinine Ratio 31.0 H, Glucose 120 H, Calcium 9.4 02/21/25 06:00: POC Glucose 87 Micro: Microbiology 02/05/25 12:15 Blood Culture (Wb) - Left Wrist Blood Culture - Final No growth in 5 days. 02/05/25 12:04 Blood Culture (Wb) - Right Hand Blood Culture - Final No growth in 5 days. 02/08/25 11:15 Sputum, Induced/Lukens Gram Stain - Final 02/08/25 11:15 Sputum, Induced/Lukens Respiratory Culture - Final Mixed normal respiratory dave. No Streptococcus pneumoniae, beta-hemolytic Streptococcus or Staphylococcus aureus isolated. 02/08/25 00:05 Stool Stool Occult Blood (TREVOR) - Final 02/05/25 11:20 Urine Catheter - Catheter Urine Culture - Final Presumptive E. coli 02/05/25 16:50 Nasal Secretion MRSA (PCR) - Final 02/05/25 16:50 Wound - Leg, Left Skin and Soft Tissue MRSA/MSSA (PCR - Final ABG Data ABG results: ABG 02/08/25 02/08/25 02/08/25 08:47 08:54 10:37 Specimen Type ART Cancelled ART Sample Site R Radial Cancelled L Radial pH 7.11 L* Cancelled 7.12 L* Bicarbonate Actual 26.2 H Cancelled 26.9 H Total CO2 29 Cancelled 29 Base Excess -3 L Cancelled -3 L O2 Saturation 84 L Cancelled 91 L O2 % 10.0 Cancelled 80.0 ABG pCO2 83.0 H* Cancelled 83.2 H* ABG pO2 68 L Cancelled 86 Harvey Test Positive Cancelled Positive Respiration Rate Cancelled 12 O2 Delivery Device HFNC Cancelled BiPAP Liter Flow Cancelled Minute Volume Cancelled Vent Mode Not entered Cancelled Not entered Inspiratory Time Cancelled Expiratory Time Cancelled Tidal Volume Cancelled Mean Airway Pressure Cancelled POC PEEP Cancelled 8 Peak Inspir Pressure Cancelled POC Pressure Suppt Cancelled Pressure Control Cancelled Pressure High Cancelled Pressure Low Cancelled Time High Cancelled Time Low Cancelled EPAP Cancelled IPAP Cancelled Blood Gas Comments Cancelled Crit Call To/Read Back Yes Cancelled Yes Blood Gas Notified Whom BROWN Cancelled BROWN Blood Gas Notified Time 08:48:45 Cancelled 10:38:53 Clinical Comments Cancelled 02/08/25 12:42 Specimen Type ART Sample Site L Radial pH 7.32 L Bicarbonate Actual 27.2 H Total CO2 29 Base Excess 1 O2 Saturation 95 O2 % 90.0 ABG pCO2 53.3 H ABG pO2 86 Harvey Test Positive Respiration Rate 14 O2 Delivery Device Adult Vent Liter Flow Minute Volume Vent Mode AC Inspiratory Time Expiratory Time Tidal Volume 450.0 Mean Airway Pressure POC PEEP 5 Peak Inspir Pressure POC Pressure Suppt Pressure Control Pressure High Pressure Low Time High Time Low EPAP IPAP Blood Gas Comments Crit Call To/Read Back Blood Gas Notified Whom Blood Gas Notified Time Clinical Comments Radiography Diagnostic Testing: Radiology Impression Chest X-Ray 02/08/25 09:30 IMPRESSION: Progressive bilateral pleural effusions worse on the left side with bibasilar atelectasis and worsening CHF. Reading Location: [id number] Chest X-Ray 02/08/25 11:40 IMPRESSION: Bilateral pleural effusions and the appearance of the lung parenchyma appears unchanged from the prior chest x-ray of earlier the same day. Interval placement of endotracheal tube, with tip approximately 4 cm above the asia.. Interval placement of nasogastric tube, with tip projecting of the proximal to mid stomach. A right jugular central venous catheter is seen, with tip projecting over the SVC. No pneumothorax is noted. The cardiomediastinal silhouette is unchanged. Reading Location: [place] [address] Rhythm Strip Rhythm Strip: Sinus Rhythm Rate: 104 Physical Exam Const alert and no apparent distress Constitutional Narrative: Remains intubated and mechanically ventilated. General Appearance: patient mechanically ventilated HEENT normocephalic and head/scalp atraumatic Mouth: endotracheal tube in place and OG tube in place Eyes PERRL, EOMs intact bilaterally and conjunctivae normal Neck supple General: trachea midline Chest inspection of chest normal Resp Auscultation: diminished lung sounds; Negative for rales, rhonchi or wheezes Cardio regular rate and regular rhythm GI normal to inspection, nondistended, normoactive bowel sounds Extremity General Extremity: edema; Negative for clubbing Skin Skin Narrative: Wrapped extremities. Neuro Neuro Narrative: Alert and able to follow simple commands. Charges/Coding Procedures Hospitalists Procedures: 68832 Critical Care 1st Hr
--- NOTE | 2025-02-21 10:43 | WOUNDNOTE ---
wound photo: right foot
--- NOTE | 2025-02-21 10:52 | CASEMGMT ---
RN CM NOTE: Dr Pool's PN for today and Rev codes sent to [facility] via [facility]. Pt to have PEG placed today. Clotilde DANGN RN CM
--- NOTE | 2025-02-21 11:59 | PN_ITS ---
Subjective Subjective Patient seen and examined. She still remains on the ventilator. She is able to nod and shake her head in response to questions. She had no active complaints. Review of systems otherwise negative. She is for PEG tube placement and is still waiting to be scheduled for the trach. Objective Data Objective Data Vital Signs: Vital Signs Temp Pulse Resp BP Pulse Ox O2 Del Method O2 Flow Rate 98.1 F 61 14 121/55 H 95 Mechanical Ventilator 95 02/21/25 10:00 02/21/25 11:00 02/21/25 11:00 02/21/25 11:00 02/21/25 11:00 02/21/25 11:44 02/15/25 15:15 FiO2 24 02/21/25 11:00 Oxygen Flow Rate (L/min) 95 Oxygen Delivery Method Mechanical Ventilator Weight: 237 lb 7.005 oz Body Mass Index (BMI) 39.5 Intake & Output: Intake and Output for Last 24 Hours 02/19/25 02/20/25 02/21/25 23:59 23:59 23:59 Intake Total 2985.58 / 3142.78 2503.53 / 2840.93 670.0 / 670.0 Output Total 650 / 650 3820 / 3820 Balance 2335.58 / 2492.78 -1316.47 / -979.07 670.0 / 670.0 Lab / Micro Data 02/21/25 03:14 02/21/25 03:14 Labs: Laboratory Results - last 24 hr 02/20/25 16:34: POC Glucose 140 H 02/20/25 21:06: POC Glucose 138 H 02/20/25 23:08: POC Glucose 129 H 02/21/25 03:14: WBC 10.1, RBC 3.79 L, Hgb 8.4 L, Hct 28.2 L, MCV 74.4 L, MCH 22.2 L, MCHC 29.8 L, RDW Std Deviation 51.9 H, RDW Coeff of Bulmaro 19.6 H, Plt Count 392, MPV 10.1, Immature Gran % (Auto) 0.500, Neut % (Auto) 78.7 H, Lymph % (Auto) 9.9 L, [place] % (Auto) 8.3, Eos % (Auto) 1.9, Baso % (Auto) 0.7, Absolute Neuts (auto) 7.9 H, Absolute Lymphs (auto) 1.00, Nucleated RBC % 0, Sodium 132 L , Potassium 3.7, Chloride 97 L, Carbon Dioxide 21.7, Anion Gap 13, BUN 54 H, C reatinine 1.75 H, Estim Creat Clear Calc 33.37 L, Est GFR (MDRD) Non-Af 30 L, B UN/Creatinine Ratio 31.0 H, Glucose 120 H, Calcium 9.4 02/21/25 06:00: POC Glucose 87 Micro: Microbiology 02/05/25 12:15 Blood Culture (Wb) - Left Wrist Blood Culture - Final No growth in 5 days. 02/05/25 12:04 Blood Culture (Wb) - Right Hand Blood Culture - Final No growth in 5 days. 02/08/25 11:15 Sputum, Induced/Lukens Gram Stain - Final 02/08/25 11:15 Sputum, Induced/Lukens Respiratory Culture - Final Mixed normal respiratory dave. No Streptococcus pneumoniae, beta-hemolytic Streptococcus or Staphylococcus aureus isolated. 02/08/25 00:05 Stool Stool Occult Blood (TREVOR) - Final 02/05/25 11:20 Urine Catheter - Catheter Urine Culture - Final Presumptive E. coli 02/05/25 16:50 Nasal Secretion MRSA (PCR) - Final 02/05/25 16:50 Wound - Leg, Left Skin and Soft Tissue MRSA/MSSA (PCR - Final Rhythm Strip Rhythm Strip: Sinus Rhythm Rate: 104 Physical Exam Const alert and no apparent distress Constitutional Narrative: flat affect, RASS score is 0. General Appearance: cooperative, intubated and patient mechanically ventilated HEENT normocephalic and head/scalp atraumatic Eyes PERRL, EOMs intact bilaterally and conjunctivae normal Neck no lymphadenopathy, supple and no JVD Lymph Lymphatic: no lymphadenopathy noted and no lymphedema noted Resp Resp Narrative: mildly diminished breath sounds bibasally, no wheezes or crackles. On the ventilator, with PEEP of 5 and FiO2 of 24 Cardio regular rate, regular rhythm, S1 normal heart sound, S2 normal heart sound and no murmurs GI normal to inspection, nondistended, normoactive bowel sounds, soft to palpation, non-tender and non-distended; Negative for hepatosplenomegaly Extremity normal capillary refill and no clubbing, cyanosis or edema General Extremity: edema and no tenderness to palpation of joints or extremities Skin no rashes or lesions noted General Skin Exam: no breakdown Neuro Neuro Narrative: Follows simple commands. RASS score is 0. Flat affect Sensorium / Orientation: sedated on vent Motor Exam: general weakness Psych Psych Narrative: alert, flat affect. RASS score is 0; on precedex drip. Appearance: intubated Mood & Affect: flat affect Assessment & Plan Assessment/Plan (1) Acute respiratory failure with hypoxia and hypercarbia: (2) Acute on chronic combined systolic (congestive) and diastolic (congestive) heart failure: (3) Cardiac LV ejection fraction 10-20%: (4) Cellulitis of right anterior lower leg: PLAN: Plan #Acute hypoxic and hypercapnic respiratory failure due to acute exacerbation of combined heart failure * Remains intubated. Remains on minimal vent settings with PEEP of 5 and FiO2 of 24. * However she has failed numerous spontaneous breathing trials. * Titrate oxygen to maintain saturation above 90%. * She is having dialysis also which should help with fluid removal. * Management as per critical care. * Critical care recommended ENT consult for Trach and GI for PEG. ENT not available this weekend. * ENT and GI consulted for Trach and PEG. * #Acute on chronic combined heart failure * On IV Lasix and also received metolazone. * on carvedilol #Elevated troponins: * Thought to be due to demand ischemia and therefore type II non-STEMI. * She does have a history of CAD s/p stents. Carvedilol held due to CHF exacerbation and fluid overload and to be resumed once fluid overload resolves. * On Imdur * #ELIDA on CKD IV: * Patient requiring dialysis. Nephrology on board. Cr today is down to 1.75. Management as per nephrology. #Chronic iron deficiency anemia: Hb today is 8.4. Will monitor and transfuse if Hb <7 #Type 2 diabetes mellitus: On insulin sliding scale. Accu-Cheks every 6 hourly as patient is n.p.o. On lantus 35 units bid. 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 #History of CVA: On aspirin and high intensity statin #Depression and anxiety: on fluoxetine. #Nutrition: on tube feeds. DVT prophylaxis: on heparin. Charges/Coding Visit Charges Inpatient E&M: 32782 Subs Hosp L2
[2025-02-21] MEDS: Dextrose 10%-Water 250 ML 999 ML IV ×2 (12:38→18:27)
--- NOTE | 2025-02-21 12:38 | CASEMGMT ---
RYNE PICHARDO note: Per Maximo @ [facility], he verified that [place] [facility] does require 3 weaning trials from the vent once trach is placed and they do need to be all 3 on separate days. Clotilde BRASWELL RN CM
[2025-02-21 12:40] LABS: Bedside Glucose 41 mg/dL (74-106)
--- NOTE | 2025-02-21 12:53 | PCM.PN.REN ---
Subjective Subjective no new events Objective Data Objective Data Vital Signs: Vital Signs Temp Pulse Resp BP Pulse Ox O2 Del Method O2 Flow Rate 98.1 F 61 18 126/54 H 97 Mechanical Ventilator 95 02/21/25 10:00 02/21/25 12:00 02/21/25 12:00 02/21/25 12:00 02/21/25 12:00 02/21/25 12:00 02/15/25 15:15 FiO2 24 02/21/25 12:00 Oxygen Flow Rate (L/min) 95 Oxygen Delivery Method Mechanical Ventilator Weight: 107.7 kg Body Mass Index (BMI) 39.5 Intake & Output: Intake and Output for Last 24 Hours 02/19/25 02/20/25 02/21/25 23:59 23:59 23:59 Intake Total 2985.58 / 3142.78 2503.53 / 2840.93 670.0 / 670.0 Output Total 650 / 650 3820 / 3820 Balance 2335.58 / 2492.78 -1316.47 / -979.07 670.0 / 670.0 Lab / Micro Data 02/21/25 03:14 02/21/25 03:14 Labs: Laboratory Results - last 24 hr 02/20/25 16:34: POC Glucose 140 H 02/20/25 21:06: POC Glucose 138 H 02/20/25 23:08: POC Glucose 129 H 02/21/25 03:14: WBC 10.1, RBC 3.79 L, Hgb 8.4 L, Hct 28.2 L, MCV 74.4 L, MCH 22.2 L, MCHC 29.8 L, RDW Std Deviation 51.9 H, RDW Coeff of Bulmaro 19.6 H, Plt Count 392, MPV 10.1, Immature Gran % (Auto) 0.500, Neut % (Auto) 78.7 H, Lymph % (Auto) 9.9 L, [place] % (Auto) 8.3, Eos % (Auto) 1.9, Baso % (Auto) 0.7, Absolute Neuts (auto) 7.9 H, Absolute Lymphs (auto) 1.00, Nucleated RBC % 0, Sodium 132 L, Potassium 3.7, Chloride 97 L, Carbon Dioxide 21.7, Anion Gap 13, BUN 54 H, Creatinine 1.75 H, Estim Creat Clear Calc 33.37 L, Est GFR (MDRD) Non-Af 30 L, BUN/Creatinine Ratio 31.0 H, Glucose 120 H, Calcium 9.4 02/21/25 06:00: POC Glucose 87 02/21/25 12:21: POC Glucose 41 L* Micro: Microbiology 02/05/25 12:15 Blood Culture (Wb) - Left Wrist Blood Culture - Final No growth in 5 days. 02/05/25 12:04 Blood Culture (Wb) - Right Hand Blood Culture - Final No growth in 5 days. 02/08/25 11:15 Sputum, Induced/Lukens Gram Stain - Final 02/08/25 11:15 Sputum, Induced/Lukens Respiratory Culture - Final Mixed normal respiratory dave. No Streptococcus pneumoniae, beta-hemolytic Streptococcus or Staphylococcus aureus isolated. 02/08/25 00:05 Stool Stool Occult Blood (TREVOR) - Final 02/05/25 11:20 Urine Catheter - Catheter Urine Culture - Final Presumptive E. coli 02/05/25 16:50 Nasal Secretion MRSA (PCR) - Final 02/05/25 16:50 Wound - Leg, Left Skin and Soft Tissue MRSA/MSSA (PCR - Final Rhythm Strip Rhythm Strip: Sinus Rhythm Rate: 104 Physical Exam Narrative On ventilator support s1s2 no murmurs Diminished breath sounds abdomen soft Edema bilateral legs morillo + clear yellow urine in bag tunneled HD catheter dressing C/D/I Assessment & Plan Assessment/Plan (1) ELIDA (acute kidney injury): (2) Chronic kidney disease (CKD): QUALIFIERS: Chronic kidney disease stage: stage 4 (GFR 15-29) Qualified Code(s): N18.4 - Chronic kidney disease, stage 4 (severe) PLAN: Plan Impression/Plan: Patient is a 74-year-old female with past history of type 2 diabetes mellitus, hypertension, CAD, ischemic cardiomyopathy with HFrEF (EF 15%), pulmonary hypertension, stroke, and hyperlipidemia. Patient presents to the hospital on 02/05/2025 with 1 week history of progressively worsening dyspnea and lower extremity edema. Patient was admitted to the hospital for treatment of acute hypoxic respiratory failure requiring NIV. Nephrology is following for ELIDA on CKD. -Hypervolemia acute kidney injury superimposed on CKD stage IV. Baseline SCr 1.80 to 2.00 mg/dL prior to this admission. Suspect ELIDA is secondary to cardiorenal syndrome. Did not respond well to IV diuresis. Started dialysis 02/14/2025. HD 02/21 plan is for trach and PEG not sure if she will need ongoing HD will review daily labs
[2025-02-21 13:10] LABS: Bedside Glucose 73 mg/dL (74-106)
[2025-02-21 13:37] LABS: Bedside Glucose 89 mg/dL (74-106)
--- NOTE | 2025-02-21 13:38 | PCM.CONS.GEN ---
Assessment & Plan Assessment/Plan (1) Respiratory failure: PLAN: Plan 74 year old female with failure to wean from ventilator secondary to heart failure and COPD. -peak pressures > 30. discussed these need to decrease -high perla procedure, discussed with patient and she understands. -will plan on tracheostomy HPI Consult Data Date of Consult: 02/21/25 HPI Narrative Reason for Consultation: tracheostomy HPI Narrative: PRICILA WALDROP, is a 74 F who presents with respiratory failure and failure to wean from ventilator. Intubated for 14 days. awake, alert. [facility] Medical History Essential hypertension Morbid obesity with BMI of 40.0-44.9, adult Hypothermia Cardiomyopathy Chronic anemia Hypoxia History of diabetes mellitus Acute metabolic encephalopathy due to hypoglycemia History of stroke Chronic kidney disease Altered level of consciousness Non-pressure chronic ulcer of other 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 Chronic kidney disease (CKD) Type 2 diabetes mellitus with hypoglycemia Diabetes mellitus with diabetic polyneuropathy Type 2 diabetes mellitus with foot ulcer Diabetes mellitus with diabetic polyneuropathy Dyspnea Ischemic cardiomyopathy History of CVA (cerebrovascular accident) Atherosclerosis of coronary artery without angina pectoris Type 2 diabetes mellitus Secondary pulmonary arterial hypertension Chronic combined systolic and diastolic CHF (congestive heart failure) Essential hypertension Obesity Chronic kidney disease (CKD) GI bleed (01/2022) Anemia Diabetes mellitus type 2 in obese Hyperlipidemia Home Medications ?Medication ?Instructions ?Recorded ?Last Taken ?Type atorvastatin 40 mg tablet 40 mg PO QHS CHOLESTEROL 02/22/22 Unknown History aspirin 81 mg tablet,delayed 81 mg PO DAILY HEART HEALTH 06/03/22 Unknown History release (Adult Aspirin Regimen) dapagliflozin propanediol 10 mg 10 mg PO DAILY DIABETES #90 tabs 07/12/24 Unknown Rx tablet (Farxiga) blood sugar diagnostic (Accu-Chek 07/13/24 Unknown History Alvina Plus test strips) fluoxetine 10 mg capsule 10 mg PO DAILY DEPERSSION 07/13/24 Unknown History insulin lispro 100 unit/mL 15 unit subcut ACHS DM 07/13/24 Unknown History subcutaneous pen (Humalog KwikPen (U-100) Insulin) amlodipine 5 mg tablet 5 mg PO DAILY HEART #0 tabs 07/18/24 Unknown Rx vitamin B complex (Complex B-100 1 tab PO DAILY HEALTH MAINTENENCE 08/19/24 Unknown History tablet,extended release) carvedilol 12.5 mg tablet 12.5 mg PO BIDCM #30 tabs 08/22/24 Unknown Rx losartan 50 mg tablet 50 mg PO DAILY #30 tabs 08/22/24 Unknown Rx furosemide 40 mg tablet 40 mg PO BID #60 tabs 01/30/25 Unknown Rx metolazone 5 mg tablet 5 mg PO DAILY HE 01/30/25 Unknown History acetaminophen 325 mg tablet 650 mg PO Q6H PRN Pain 1-10 Or 02/05/25 Unknown History Fever >100.7 Allergy/AdvReac Type Severity Reaction Status Date / Time No Known Allergies Allergy Verified 02/05/25 09:50 Family History Father Diabetes Heart disease CAD (coronary artery disease) Mother Heart disease Surgical History History of coronary artery stent placement (09/2013) H/O vein stripping Status post angioplasty with stent Social History household members: family Smoking Status: Former smoker how long ago did patient quit smokin years ago alcohol intake: never substance use type: does not use caffeine: Yes ROS ROS Narrative intubated, awake and alert Physical Exam Const alert General Appearance: cooperative HEENT HEENT Narrative: morbidly obese, very large pannus of neck Lab / Micro Data 02/21/25 03:14 02/21/25 03:14 Labs: Laboratory Results - last 24 hr 02/20/25 16:34: POC Glucose 140 H 02/20/25 21:06: POC Glucose 138 H 02/20/25 23:08: POC Glucose 129 H 02/21/25 03:14: WBC 10.1, RBC 3.79 L, Hgb 8.4 L, Hct 28.2 L, MCV 74.4 L, MCH 22.2 L, MCHC 29.8 L, RDW Std Deviation 51.9 H, RDW Coeff of Bulmaro 19.6 H, Plt Count 392, MPV 10.1, Immature Gran % (Auto) 0.500, Neut % (Auto) 78.7 H, Lymph % (Auto) 9.9 L, [place] % (Auto) 8.3, Eos % (Auto) 1.9, Baso % (Auto) 0.7, Absolute Neuts (auto) 7.9 H, Absolute Lymphs (auto) 1.00, Nucleated RBC % 0, Sodium 132 L, Potassium 3.7, Chloride 97 L, Carbon Dioxide 21.7, Anion Gap 13, BUN 54 H, Creatinine 1.75 H, Estim Creat Clear Calc 33.37 L, Est GFR (MDRD) Non-Af 30 L, BUN/Creatinine Ratio 31.0 H, Glucose 120 H, Calcium 9.4 02/21/25 06:00: POC Glucose 87 02/21/25 12:21: POC Glucose 41 L* 02/21/25 12:50: POC Glucose 73 L 02/21/25 13:19: POC Glucose 89 Rhythm Strip Rhythm Strip: Sinus Rhythm Rate: 104
--- NOTE | 2025-02-21 14:11 | PCM.PN.BLA ---
Progress Note The patient is scheduled to have PEG tube placed today. Physical Exam Const alert and no apparent distress Constitutional Narrative: Remains intubated and mechanically ventilated. General Appearance: patient mechanically ventilated HEENT normocephalic and head/scalp atraumatic Mouth: endotracheal tube in place and OG tube in place Eyes PERRL, EOMs intact bilaterally and conjunctivae normal Neck supple General: trachea midline Chest inspection of chest normal Resp Auscultation: diminished lung sounds; Negative for rales, rhonchi or wheezes Cardio regular rate and regular rhythm GI normal to inspection, nondistended, normoactive bowel sounds Extremity General Extremity: edema; Negative for clubbing Skin Skin Narrative: Wrapped extremities. Neuro Neuro Narrative: Alert and able to follow simple commands. Assessment & Plan Assessment/Plan (1) Acute respiratory failure with hypoxia and hypercarbia: (2) Acute on chronic combined systolic (congestive) and diastolic (congestive) heart failure: (3) Cardiac LV ejection fraction 10-20%: (4) Cellulitis of right anterior lower leg: (5) Protein calorie malnutrition: PLAN: Plan 74-year-old with Acute hypoxic and hypercapnic respiratory failure due to acute exacerbation of combined heart failure currently intubated and sedated. Her family also deciding about if they want trach or peg. I can be available to do the PEG tube if the family decides they want to pursue that procedure. 02/21/2025-patient and the family would like a PEG tube placed. They were explained alternatives, risk and benefits include not withstanding bleeding, infection, sepsis, perforation, need for more surgery . She will have an ASA of 3.
[2025-02-21] MEDS: fentaNYL 100 MCG/2 ML Ampul 50 MCG IV ×2 (14:45→14:53)
[2025-02-21] MEDS: Midazolam 2 MG/2 ML Syringe IV ×2 (14:45→14:52)
[2025-02-21] MEDS: Cefazolin 2 GM in 0.9% Normal Saline (100mL Bag) 100 ML IV (15:05)
--- NOTE | 2025-02-21 15:16 | OP.EGD_ITS ---
Patient Name: Rosa Myers Procedure Date: 02/21/2025 2:19 PM Date of : 1950 Age: 74 Procedure: Upper GI endoscopy Indications: Dysphagia Providers: Tyson Power DO Medicines: Monitored Anesthesia Care Patient Profile: This is a 74 year old female. Refer to note in patient chart for documentation of history and physical. Patient has symptoms of dysphagia with both liquids and solids. Complications: No immediate complications. Procedure: Pre-Anesthesia Assessment: - Prior to the procedure, a History and Physical was performed, and patient medications and allergies were reviewed. The patient is competent. The risks and benefits of the procedure and the sedation options and risks were discussed with the patient. All questions were answered and informed consent was obtained. Patient identification and proposed procedure were verified by the physician in the pre-procedure area. Mental Status Examination: alert and oriented. Airway Examination: normal oropharyngeal airway and neck mobility. Respiratory Examination: clear to auscultation. CV Examination: normal. Prophylactic Antibiotics: The patient does not require prophylactic antibiotics. Prior Anticoagulants: The patient has taken no anticoagulant or antiplatelet agents except for NSAID medication. ASA Grade Assessment: IV - A patient with severe systemic disease that is a constant threat to life. After reviewing the risks and benefits, the patient was deemed in satisfactory condition to undergo the procedure. The anesthesia plan was to use monitored anesthesia care (MAC). Immediately prior to administration of medications, the patient was re-assessed for adequacy to receive sedatives. The heart rate, respiratory rate, oxygen saturations, blood pressure, adequacy of pulmonary ventilation, and response to care were monitored throughout the procedure. The physical status of the patient was re-assessed after the procedure. After obtaining informed consent, the endoscope was passed under direct vision. Throughout the procedure, the patient's blood pressure, pulse, and oxygen saturations were monitored continuously. The gastroscope was introduced through the mouth, and advanced to the second part of duodenum. The upper GI endoscopy was accomplished without difficulty. The patient tolerated the procedure well. Scope In: 2:44:17 PM Scope Out: 3:02:09 PM Total Procedure Duration Time 0 hours 17 minutes 52 seconds Findings: The examined esophagus was normal. No gross lesions were noted in the gastric body. The patient was placed in the supine position for PEG placement. The stomach was insufflated to appose gastric and abdominal trujillo. A site was located in the body of the stomach with transillumination for placement. The abdominal wall was marked and prepped in a sterile manner. The area was anesthetized with 1 mL of 1% lidocaine. The trocar needle was introduced through the abdominal wall and into the stomach under direct endoscopic view. A snare was introduced through the endoscope and opened in the gastric lumen. The guide wire was passed through the trocar and into the open snare. The snare was closed around the guide wire. The endoscope and snare were removed, pulling the wire out through the mouth. A skin incision was made at the site of needle insertion. The endoscopically removable 20 Fr Bard gastrostomy tube was lubricated. The G-tube was tied to the guide wire and pulled through the mouth and into the stomach. The trocar needle was removed, and the gastrostomy tube was pulled out from the stomach through the skin. The external bumper was attached to the gastrostomy tube, and the tube was cut to remove the guide wire. The final position of the gastrostomy tube was confirmed by relook endoscopy, and skin marking noted to be 4 cm at the external bumper. The final tension and compression of the abdominal wall by the PEG tube and external bumper were checked and revealed that the bumper was loose and lightly touching the skin. The feeding tube was capped, and the tube site cleaned and dressed. The second portion of the duodenum was normal. Impression: - Normal esophagus. - No gross lesions in the gastric body. - Normal second portion of the duodenum. - An endoscopically removable PEG placement was successfully completed. - No specimens collected. Recommendation: - Return patient to ICU for ongoing care. - Resume previous diet. - Continue present medications. Procedure Code(s): --- Professional --- 59933, Esophagogastroduodenoscopy, flexible, transoral; with directed placement of percutaneous gastrostomy tube CPT copyright 2021 [employer]. All rights reserved. The codes documented in this report are preliminary and upon grades 7 and 8 teacher review may be revised to meet current compliance requirements. Tyson Power DO 02/21/2025 3:15:37 PM This report has been signed electronically. Number of Addenda: 0 Note Initiated On: 02/21/2025 2:19 PM
--- NOTE | 2025-02-21 15:16 | OP.CCLET_ITS ---
02/21/2025 Nabor James [address] [place] [address] Re : Upper GI endoscopy procedure for Rosa Louis Dear Dr. James This procedure was performed on Friday, February 21, 2025. My impressions and recommendations are as follows: Impressions : - Normal esophagus. - No gross lesions in the gastric body. - Normal second portion of the duodenum. - An endoscopically removable PEG placement was successfully completed. - No specimens collected. Recommendations : - Return patient to ICU for ongoing care. - Resume previous diet. - Continue present medications. My findings are described in the full procedure note, which is enclosed. If I can be of further assistance, please feel free to contact me at . Sincerely, Tyson Power, 02/21/2025 3:15:37 PM This report has been signed electronically.
[2025-02-21] MEDS: NEPRO 1,000 ML 30 ML GT (15:47)
--- NOTE | 2025-02-21 16:33 | CASEMGMT ---
Social Work- SW participated in interdisciplinary rounds with care team. Pt plans for discharge to [facility]. No SW needs at this time. SW remains available to follow. ROSE Hein
[2025-02-21] MEDS: Mineral Oil/Petrolatum Cr 1.75oz Bottle 1 APPLIC TOPICAL (18:45)
[2025-02-21 18:48] LABS: Bedside Glucose 51 mg/dL (74-106)
[2025-02-21 19:06] LABS: Bedside Glucose 162 mg/dL (74-106)
[2025-02-21] MEDS: Insulin Glargine-YFGN 100 UNIT/ML Pen 35 UNIT SC (21:31)
[2025-02-21] MEDS: hydrALAZINE 10 MG Tablet PO (21:33)
[2025-02-21] MEDS: guaiFENesin 10 ML UDC (200MG/10ML) NG (21:34)
[2025-02-21] MEDS: Atorvastatin Calcium 40 MG Tablet PO (21:39)
[2025-02-21 21:44] LABS: Bedside Glucose 114 mg/dL (74-106)
[2025-02-22] VITALS (36 sets, daily range): BP systolic 97–132; BP diastolic 41–76; PULSE 56–66; RESP 13–23; TEMP 36.2–36.4; O2SAT 90–100; BMI 39.6
[2025-02-22] MEDS: Albuterol 2.5 MG/3 ML VIAL.NEB. INHALATION (02:44)
[2025-02-22] MEDS: dexMEDEtomidine 1,000 MCG in 0.9% Normal Saline (250mL Bag) 240 ML 26.9 MCG CONT INF ×2 (05:00→14:27)
[2025-02-22 05:19] LABS: Absolute Lymphocyte Count 0.86 X10^3/uL (0.83-4.51); Absolute Neutrophil Count 7.2 X10^3/uL (2.0-7.7); Basophil# 0.05 X10^3/uL; Basophil% 0.6 % (0-1); Eosinophil# 0.18 X10^3/uL; Hematocrit 29.3 % (37-47); Hemoglobin 8.7 g/dL (12.0-15.0); Lymphocyte # 0.86 X10^3/ul (0.83-4.51); Lymphocyte % 9.7 % (19-41); Mean Corp Hgb Conc 29.7 g/dL (32-36); Mean Corpuscular Volume 74.2 fL (81-99); Mean Platelet Vol. 10.8 fl (6.2-12.0); Monocyte# 0.57 X10^3/uL; Monocyte% 6.4 % (0-10); NRBC Flagged by Analyzer 0 % (0-5); Neutrophil # 7.16 X10^3/uL (2.7-7.7); Neutrophil % 80.6 % (47-70); Platelet Count 401 K/mm3 (150-450); RBC Distribution Width CV 19.8 % (11.6-14.6); Red Blood Count 3.95 M/mm3 (4.2-5.4); White Blood Count 8.9 K/mm3 (4.4-11.0)
[2025-02-22] MEDS: hydrALAZINE 10 MG Tablet PO ×3 (05:25→21:30)
[2025-02-22] MEDS: guaiFENesin 10 ML UDC (200MG/10ML) NG ×3 (05:26→21:22)
[2025-02-22] MEDS: Menthol/Lanolin/Calamine/Znox 113 GM Tube 1 APPLIC TOPICAL ×3 (05:29→21:26)
[2025-02-22 05:32] LABS: Anion Gap 14 (5-15); BUN 60 mg/dL (4-19); BUN/Creat Ratio 32.7 RATIO (10-20); Carbon Dioxide 20.6 mmol/L (21.0-32.0); Chloride 99 mmol/L (98-108); Creatinine, Serum 1.84 mg/dL (0.70-1.20); EST Glomerular Filtration Rate 28 (>60); Glucose 118 mg/dL (70-99); Potassium 3.7 mmol/L (3.3-5.1); Sodium Level 134 mmol/L (133-145)
[2025-02-22 05:53] LABS: Bedside Glucose 112 mg/dL (74-106)
--- NOTE | 2025-02-22 06:56 | PCM.PN.INT ---
Assessment & Plan Assessment/Plan (1) Acute on chronic combined systolic (congestive) and diastolic (congestive) heart failure: (2) Urinary tract infection: (3) Acute respiratory failure with hypoxia and hypercarbia: (4) Chronic kidney disease (CKD): QUALIFIERS: Chronic kidney disease stage: stage 4 (GFR 15-29) Qualified Code(s): N18.4 - Chronic kidney disease, stage 4 (severe) PLAN: Plan RECOMMENDATIONS: 1. Continue assist-control mode of mechanical ventilation. Wean FiO2 and PEEP as tolerated. 2. Continue daily attempts at spontaneous breathing trials. 3. Proceed with tracheostomy given failure to wean from ventilator. 4. Ongoing diuresis along with goal-directed medical therapy. 5. Continue tube feeding as tolerated. 6. Continue appropriate ICU prophylaxis. 7. Ongoing dialysis support per nephrology recommendations. IMPRESSIONS: 1. Acute respiratory failure with hypoxemia and hypercapnia secondary to decompensated heart failure The patient was initially admitted to the hospital with acute decompensated congestive heart failure and UTI, but worsened from a respiratory perspective on the morning of February 08, with increasing oxygen requirement and lethargy. Subsequent ABG demonstrated acute CO2 retention, which was refractory to the use of noninvasive positive pressure ventilatory support. Therefore, the patient was intubated. The patient appears to have stabilized from a respiratory perspective following intubation. She will be continued on assist-control mode of mechanical ventilation, with a goal to wean FiO2 and PEEP as tolerated. Unfortunately, despite continued supportive care, the patient continues to fail attempts at spontaneous breathing trials. She is significantly debilitated and will require tracheostomy placement. Timing for tracheostomy is pending per ENT. The patient is status post PEG tube placement on 02/21. 2. Acute on chronic combined systolic and diastolic heart failure Continue medical management per cardiology recommendations. 3. Acute on chronic kidney disease Suspect that this is related to underlying cardiorenal syndrome. The patient is being followed by nephrology with plans for ongoing hemodialysis. 4. Morbid obesity/anemia/diabetes mellitus/history of CVA/depression/anxiety Complicates care, management, recovery and prognosis. Continue supportive measures as noted above. Continue tube feeding as tolerated. TIME: 32 minutes of critical care time, independent of procedures, was spent addressing the patient's acute respiratory failure with hypoxemia and hypercapnia, acute decompensated congestive heart failure, acute on chronic kidney disease, review of all data and collaboration with the care team. Subjective Subjective The patient was seen and examined at the bedside this morning. Events from the last 24 hours have been reviewed. The patient is currently afebrile, hemodynamically stable and maintaining appropriate oxygen saturations on assist-control mode mechanical ventilation with an FiO2 requirement of 35%. Again, when transition to pressure support trial, the patient becomes more tachypneic with tidal volumes consistently in the 200s. The patient did undergo successful PEG tube placement yesterday. She is still awaiting tracheostomy placement per ENT. The patient is documented to be overall net -7 L for the hospitalization. White blood cell count is normal. Hemoglobin is stable at 8.7 g/dL. Creatinine is relatively stable at 1.84. The patient has been tolerant of tube feeding. Objective Data Objective Data The patient's most recent lab work, culture data and imaging studies have all been personally reviewed. Surface echocardiogram demonstrated an ejection fraction of 15%. Urine culture was positive for pansensitive E. coli. Blood cultures have not demonstrated any growth to date. Sputum culture has not demonstrated any growth to date. Vital Signs: Vital Signs Temp Pulse Resp BP Pulse Ox O2 Del Method O2 Flow Rate 97.3 F L 62 20 H 129/44 H 93 Mechanical Ventilator 95 02/22/25 04:00 02/22/25 06:49 02/22/25 06:49 02/22/25 06:00 02/22/25 06:49 02/22/25 06:00 02/15/25 15:15 FiO2 35 02/22/25 06:49 Oxygen Flow Rate (L/min) 95 Oxygen Delivery Method Mechanical Ventilator Weight: 238 lb 5.115 oz Body Mass Index (BMI) 39.6 Intake & Output: Intake and Output for Last 24 Hours 02/20/25 02/21/25 02/22/25 23:59 23:59 23:59 Intake Total 2503.53 / 2840.93 1457.46 / 1514.36 192.54 / 192.54 Output Total 3820 / 3820 425 / 500 250 / 250 Balance -1316.47 / -979.07 1032.46 / 1014.36 -57.46 / -57.46 Lab / Micro Data Attestation: I reviewed the patient's lab results. 02/22/25 04:50 02/22/25 04:50 Labs: Laboratory Results - last 24 hr 02/21/25 12:21: POC Glucose 41 L* 02/21/25 12:50: POC Glucose 73 L 02/21/25 13:19: POC Glucose 89 02/21/25 18:22: POC Glucose 51 L 02/21/25 18:48: POC Glucose 162 H 02/21/25 21:25: POC Glucose 114 H 02/22/25 04:50: WBC 8.9, RBC 3.95 L, Hgb 8.7 L, Hct 29.3 L, MCV 74.2 L, MCH 22.0 L, MCHC 29.7 L, RDW Std Deviation 52.0 H, RDW Coeff of Bulmaro 19.8 H, Plt Count 401, MPV 10.8, Immature Gran % (Auto) 0.700, Neut % (Auto) 80.6 H, Lymph % (Auto) 9.7 L, [place] % (Auto) 6.4, Eos % (Auto) 2.0, Baso % (Auto) 0.6, Absolute Neuts (auto) 7.2, Absolute Lymphs (auto) 0.86, Nucleated RBC % 0, Sodium 134, Potassium 3.7, Chloride 99, Carbon Dioxide 20.6 L, Anion Gap 14, BUN 60 H, Creatinine 1.84 H, Estim Creat Clear Calc 31.80 L, Est GFR (MDRD) Non-Af 28 L, BUN/Creatinine Ratio 32.7 H, Glucose 118 H, Calcium 9.0 02/22/25 05:27: POC Glucose 112 H Micro: Microbiology 02/05/25 12:15 Blood Culture (Wb) - Left Wrist Blood Culture - Final No growth in 5 days. 02/05/25 12:04 Blood Culture (Wb) - Right Hand Blood Culture - Final No growth in 5 days. 02/08/25 11:15 Sputum, Induced/Lukens Gram Stain - Final 02/08/25 11:15 Sputum, Induced/Lukens Respiratory Culture - Final Mixed normal respiratory dave. No Streptococcus pneumoniae, beta-hemolytic Streptococcus or Staphylococcus aureus isolated. 02/08/25 00:05 Stool Stool Occult Blood (TREVOR) - Final 02/05/25 11:20 Urine Catheter - Catheter Urine Culture - Final Presumptive E. coli 02/05/25 16:50 Nasal Secretion MRSA (PCR) - Final 02/05/25 16:50 Wound - Leg, Left Skin and Soft Tissue MRSA/MSSA (PCR - Final ABG Data ABG results: ABG 02/08/25 02/08/25 02/08/25 08:47 08:54 10:37 Specimen Type ART Cancelled ART Sample Site R Radial Cancelled L Radial pH 7.11 L* Cancelled 7.12 L* Bicarbonate Actual 26.2 H Cancelled 26.9 H Total CO2 29 Cancelled 29 Base Excess -3 L Cancelled -3 L O2 Saturation 84 L Cancelled 91 L O2 % 10.0 Cancelled 80.0 ABG pCO2 83.0 H* Cancelled 83.2 H* ABG pO2 68 L Cancelled 86 Harvey Test Positive Cancelled Positive Respiration Rate Cancelled 12 O2 Delivery Device HFNC Cancelled BiPAP Liter Flow Cancelled Minute Volume Cancelled Vent Mode Not entered Cancelled Not entered Inspiratory Time Cancelled Expiratory Time Cancelled Tidal Volume Cancelled Mean Airway Pressure Cancelled POC PEEP Cancelled 8 Peak Inspir Pressure Cancelled POC Pressure Suppt Cancelled Pressure Control Cancelled Pressure High Cancelled Pressure Low Cancelled Time High Cancelled Time Low Cancelled EPAP Cancelled IPAP Cancelled Blood Gas Comments Cancelled Crit Call To/Read Back Yes Cancelled Yes Blood Gas Notified Whom BROWN Cancelled BROWN Blood Gas Notified Time 08:48:45 Cancelled 10:38:53 Clinical Comments Cancelled 02/08/25 12:42 Specimen Type ART Sample Site L Radial pH 7.32 L Bicarbonate Actual 27.2 H Total CO2 29 Base Excess 1 O2 Saturation 95 O2 % 90.0 ABG pCO2 53.3 H ABG pO2 86 Harvey Test Positive Respiration Rate 14 O2 Delivery Device Adult Vent Liter Flow Minute Volume Vent Mode AC Inspiratory Time Expiratory Time Tidal Volume 450.0 Mean Airway Pressure POC PEEP 5 Peak Inspir Pressure POC Pressure Suppt Pressure Control Pressure High Pressure Low Time High Time Low EPAP IPAP Blood Gas Comments Crit Call To/Read Back Blood Gas Notified Whom Blood Gas Notified Time Clinical Comments Radiography Diagnostic Testing: Radiology Impression Chest X-Ray 02/08/25 09:30 IMPRESSION: Progressive bilateral pleural effusions worse on the left side with bibasilar atelectasis and worsening CHF. Reading Location: [id number] Chest X-Ray 05/15/25 11:40 IMPRESSION: Bilateral pleural effusions and the appearance of the lung parenchyma appears unchanged from the prior chest x-ray of earlier the same day. Interval placement of endotracheal tube, with tip approximately 4 cm above the asia.. Interval placement of nasogastric tube, with tip projecting of the proximal to mid stomach. A right jugular central venous catheter is seen, with tip projecting over the SVC. No pneumothorax is noted. The cardiomediastinal silhouette is unchanged. Reading Location: [place] [address] Rhythm Strip Rhythm Strip: Sinus Rhythm Rate: 104 Physical Exam Const alert and no apparent distress Constitutional Narrative: Remains intubated and mechanically ventilated. General Appearance: patient mechanically ventilated HEENT normocephalic and head/scalp atraumatic Mouth: endotracheal tube in place and OG tube in place Eyes PERRL, EOMs intact bilaterally and conjunctivae normal Neck supple General: trachea midline Chest inspection of chest normal Resp Auscultation: diminished lung sounds; Negative for rales, rhonchi or wheezes Cardio regular rate and regular rhythm GI normal to inspection, nondistended, normoactive bowel sounds GI Narrative: PEG tube in place. Extremity General Extremity: edema; Negative for clubbing Skin Skin Narrative: Wrapped extremities. Neuro Neuro Narrative: Alert and able to follow simple commands. Charges/Coding Procedures Hospitalists Procedures: 90556 Critical Care 1st Hr
[2025-02-22] MEDS: Insulin Glargine-YFGN 100 UNIT/ML Pen 35 UNIT SC (09:42)
[2025-02-22] MEDS: Isosorbide DN 10 MG Tablet 5 MG PO ×2 (09:42→21:30)
[2025-02-22] MEDS: Chlorhexidine 15 ML PO ×2 (09:43→21:27)
[2025-02-22] MEDS: Aspirin E.C. 81 MG Tablet PO (09:45)
[2025-02-22] MEDS: Furosemide 40 MG/4 ML Vial IV (09:45)
[2025-02-22] MEDS: Pantoprazole Sodium 40 MG in 0.9% Normal Saline (100mL MB+) 100 ML 330 MG IV (09:46)
[2025-02-22] MEDS: FLUoxetine 10 MG Capsule PO (09:58)
--- NOTE | 2025-02-22 11:16 | CASEMGMT ---
Addendum entered by Doreen Guadarrama 02/22/25 16:23: 1535: Pt's son, Marcell, @ bedside, visiting w/pt. RYNE PICHARDO to room. He states his father has relayed information to him re: LTAC and further information provided by this RYNE PICHARDO. Marcell was provided w/the list of LTAC providers including quality and resource use data and consistent with the patient?s preferred geographic region, medical needs, and insurance network from the [facility]. He states they are pleased w/the decision for [facility]. He denies having further questions or concerns. Original Note: RYNE PICHARDO NOTE: Updated PN, current med list, and PEG placement OP note sent to [facility] via [facility]. Message also sent stating trach placement date is still TBD. Pt made aware [facility] accept her. Call placed to pt's . He was made also made aware and also of insurance prior auth process. Clotilde BRASWELL RN, CM
--- NOTE | 2025-02-22 11:40 | PN.RENAL_ITS ---
Subjective Subjective Potentially tracheostomy on Wednesday Objective Data Objective Data Vital Signs: Vital Signs Temp Pulse Resp BP Pulse Ox O2 Del Method O2 Flow Rate 97.3 F L 62 18 128/47 H 99 Mechanical Ventilator 95 02/22/25 04:00 02/22/25 11:11 02/22/25 11:11 02/22/25 11:00 02/22/25 11:11 02/22/25 11:24 02/15/25 15:15 FiO2 30 02/22/25 11:11 Oxygen Flow Rate (L/min) 95 Oxygen Delivery Method Mechanical Ventilator Weight: 108.1 kg Body Mass Index (BMI) 39.6 Intake & Output: Intake and Output for Last 24 Hours 02/20/25 02/21/25 02/22/25 23:59 23:59 23:59 Intake Total 2503.53 / 2840.93 1457.46 / 1514.36 437.04 / 437.04 Output Total 3820 / 3820 425 / 500 250 / 250 Balance -1316.47 / -979.07 1032.46 / 1014.36 187.04 / 187.04 Lab / Micro Data 02/22/25 04:50 02/22/25 04:50 Labs: Laboratory Results - last 24 hr 02/21/25 12:21: POC Glucose 41 L* 02/21/25 12:50: POC Glucose 73 L 02/21/25 13:19: POC Glucose 89 02/21/25 18:22: POC Glucose 51 L 02/21/25 18:48: POC Glucose 162 H 02/21/25 21:25: POC Glucose 114 H 02/22/25 04:50: WBC 8.9, RBC 3.95 L, Hgb 8.7 L, Hct 29.3 L, MCV 74.2 L, MCH 22.0 L, MCHC 29.7 L, RDW Std Deviation 52.0 H, RDW Coeff of Bulmaro 19.8 H, Plt Count 401, MPV 10.8, Immature Gran % (Auto) 0.700, Neut % (Auto) 80.6 H, Lymph % (Auto) 9.7 L, [place] % (Auto) 6.4, Eos % (Auto) 2.0, Baso % (Auto) 0.6, Absolute Neuts (auto) 7.2, Absolute Lymphs (auto) 0.86, Nucleated RBC % 0, Sodium 134, Potassium 3.7, Chloride 99, Carbon Dioxide 20.6 L, Anion Gap 14, BUN 60 H, C reatinine 1.84 H, Estim Creat Clear Calc 31.80 L, Est GFR (MDRD) Non-Af 28 L, B UN/Creatinine Ratio 32.7 H, Glucose 118 H, Calcium 9.0 02/22/25 05:27: POC Glucose 112 H Micro: Microbiology 02/05/25 12:15 Blood Culture (Wb) - Left Wrist Blood Culture - Final No growth in 5 days. 02/05/25 12:04 Blood Culture (Wb) - Right Hand Blood Culture - Final No growth in 5 days. 02/08/25 11:15 Sputum, Induced/Lukens Gram Stain - Final 02/08/25 11:15 Sputum, Induced/Lukens Respiratory Culture - Final Mixed normal respiratory dave. No Streptococcus pneumoniae, beta-hemolytic Streptococcus or Staphylococcus aureus isolated. 02/08/25 00:05 Stool Stool Occult Blood (TREVOR) - Final 02/05/25 11:20 Urine Catheter - Catheter Urine Culture - Final Presumptive E. coli 02/05/25 16:50 Nasal Secretion MRSA (PCR) - Final 02/05/25 16:50 Wound - Leg, Left Skin and Soft Tissue MRSA/MSSA (PCR - Final Rhythm Strip Rhythm Strip: Sinus Rhythm Rate: 104 Physical Exam Narrative On ventilator support s1s2 no murmurs Diminished breath sounds abdomen soft Edema bilateral legs morillo + clear yellow urine in bag tunneled HD catheter dressing C/D/I Assessment & Plan Assessment/Plan (1) ELIDA (acute kidney injury): (2) Chronic kidney disease (CKD): QUALIFIERS: Chronic kidney disease stage: stage 4 (GFR 15-29) Q ualified Code(s): N18.4 - Chronic kidney disease, stage 4 (severe) PLAN: Plan Impression/Plan: Patient is a 74-year-old female with past history of type 2 diabetes mellitus, hypertension, CAD, ischemic cardiomyopathy with HFrEF (EF 15%), pulmonary hypertension, stroke, and hyperlipidemia. Patient presents to the hospital on 02/05/2025 with 1 week history of progressively worsening dyspnea and lower extremity edema. Patient was admitted to the hospital for treatment of acute hypoxic respiratory failure requiring NIV. Nephrology is following for ELIDA on CKD. -Hypervolemia acute kidney injury superimposed on CKD stage IV. Baseline SCr 1.80 to 2.00 mg/dL prior to this admission. Suspect ELIDA is secondary to cardiorenal syndrome. Did not respond well to IV diuresis. Started dialysis 02/14/2025. HD 02/21 plan is for trach and PEG BUN and creatinine are about the same. Since there is no plans for extubation, there is no need for aggressive volume removal in dialysis. Her creatinine is close to baseline. Will increase the Lasix for now. Hold off dialysis for today.
[2025-02-22 12:32] LABS: Bedside Glucose 104 mg/dL (74-106)
--- NOTE | 2025-02-22 13:42 | PN_ITS ---
Subjective Subjective Patient seen and examined. She still remains on the vent on minimal settings. She had the PEG tube inserted yesterday by GI. She is still awaiting tracheostomy insertion by ENT. Objective Data Objective Data Vital Signs: Vital Signs Temp Pulse Resp BP Pulse Ox O2 Del Method O2 Flow Rate 97.3 F L 56 L 15 128/47 H 98 Mechanical Ventilator 95 02/22/25 04:00 02/22/25 13:14 02/22/25 13:14 02/22/25 11:00 02/22/25 13:14 02/22/25 11:24 02/15/25 15:15 FiO2 02/22/25 13:14 Oxygen Flow Rate (L/min) 95 Oxygen Delivery Method Mechanical Ventilator Weight: 238 lb 5.115 oz Body Mass Index (BMI) 39.6 Intake & Output: Intake and Output for Last 24 Hours 02/20/25 02/21/25 02/22/25 23:59 23:59 23:59 Intake Total 2503.53 / 2840.93 1457.46 / 1514.36 437.04 / 437.04 Output Total 3820 / 3820 425 / 500 250 / 250 Balance -1316.47 / -979.07 1032.46 / 1014.36 187.04 / 187.04 Lab / Micro Data 02/22/25 04:50 02/22/25 04:50 Labs: Laboratory Results - last 24 hr 02/21/25 18:22: POC Glucose 51 L 02/21/25 18:48: POC Glucose 162 H 02/21/25 21:25: POC Glucose 114 H 02/22/25 04:50: WBC 8.9, RBC 3.95 L, Hgb 8.7 L, Hct 29.3 L, MCV 74.2 L, MCH 22.0 L, MCHC 29.7 L, RDW Std Deviation 52.0 H, RDW Coeff of Bulmaro 19.8 H, Plt Count 401, MPV 10.8, Immature Gran % (Auto) 0.700, Neut % (Auto) 80.6 H, Lymph % (Auto) 9.7 L, King % (Auto) 6.4, Eos % (Auto) 2.0, Baso % (Auto) 0.6, Absolute Neuts (auto) 7.2, Absolute Lymphs (auto) 0.86, Nucleated RBC % 0, Sodium 134, Potassium 3.7, Chloride 99, Carbon Dioxide 20.6 L, Anion Gap 14, BUN 60 H, C reatinine 1.84 H, Estim Creat Clear Calc 31.80 L, Est GFR (MDRD) Non-Af 28 L, B UN/Creatinine Ratio 32.7 H, Glucose 118 H, Calcium 9.0 02/22/25 05:27: POC Glucose 112 H 02/22/25 12:05: POC Glucose 104 Micro: Microbiology 02/05/25 12:15 Blood Culture (Wb) - Left Wrist Blood Culture - Final No growth in 5 days. 02/05/25 12:04 Blood Culture (Wb) - Right Hand Blood Culture - Final No growth in 5 days. 02/08/25 11:15 Sputum, Induced/Lukens Gram Stain - Final 02/08/25 11:15 Sputum, Induced/Lukens Respiratory Culture - Final Mixed normal respiratory dave. No Streptococcus pneumoniae, beta-hemolytic Streptococcus or Staphylococcus aureus isolated. 02/08/25 00:05 Stool Stool Occult Blood (TREVOR) - Final 02/05/25 11:20 Urine Catheter - Catheter Urine Culture - Final Presumptive E. coli 02/05/25 16:50 Nasal Secretion MRSA (PCR) - Final 02/05/25 16:50 Wound - Leg, Left Skin and Soft Tissue MRSA/MSSA (PCR - Final Rhythm Strip Rhythm Strip: Sinus Rhythm Rate: 104 Physical Exam Const alert and no apparent distress Constitutional Narrative: flat affect, RASS score is 0. General Appearance: cooperative, intubated and patient mechanically ventilated HEENT normocephalic and head/scalp atraumatic Eyes PERRL, EOMs intact bilaterally and conjunctivae normal Neck no lymphadenopathy, supple and no JVD Lymph Lymphatic: no lymphadenopathy noted and no lymphedema noted Resp normal respiratory effort, no retractions and no use of accessory muscles Resp Narrative: mildly diminished breath sounds bibasally, no wheezes or crackles. On the ventilator, with PEEP of 5 and FiO2 of 30 Auscultation: crackles Cardio regular rate, regular rhythm, S1 normal heart sound, S2 normal heart sound and no murmurs GI normal to inspection, nondistended, normoactive bowel sounds, soft to palpation, non-tender and non-distended Extremity normal capillary refill and no clubbing, cyanosis or edema General Extremity: edema and no tenderness to palpation of joints or extremities Skin no rashes or lesions noted General Skin Exam: no breakdown Neuro no focal motor deficits Neuro Narrative: Follows simple commands. RASS score is 0. Flat affect Sensorium / Orientation: sedated on vent Motor Exam: general weakness Psych Psych Narrative: alert, flat affect. RASS score is 0; on precedex drip. Appearance: intubated Mood & Affect: flat affect Assessment & Plan Assessment/Plan (1) Acute respiratory failure with hypoxia and hypercarbia: (2) Acute on chronic combined systolic (congestive) and diastolic (congestive) heart failure: (3) Cardiac LV ejection fraction 10-20%: (4) Cellulitis of right anterior lower leg: PLAN: Plan #Acute hypoxic and hypercapnic respiratory failure due to acute exacerbation of combined heart failure * Remains intubated. Remains on minimal vent settings with PEEP of 5 and FiO2 of 30 today * However she has failed numerous spontaneous breathing trials. * Titrate oxygen to maintain saturation above 90%. * She is having dialysis also which should help with fluid removal. * Management as per critical care. * Critical care recommended ENT consult for Trach and GI for PEG. ENT not available this weekend. * ENT and GI consulted for Trach and PEG. * #Acute on chronic combined heart failure * On IV Lasix and also received metolazone. * on carvedilol #Elevated troponins: * Thought to be due to demand ischemia and therefore type II non-STEMI. * She does have a history of CAD s/p stents. Carvedilol held due to CHF exacerbation and fluid overload and to be resumed once fluid overload resolves. * On Imdur * #ELIDA on CKD IV: * Patient requiring dialysis. Nephrology on board. * Cr today is 1.84 today. Management as per nephrology. #Chronic iron deficiency anemia: Hb today is 8.7. Will monitor and transfuse if Hb <7 #Type 2 diabetes mellitus: On insulin sliding scale. Accu-Cheks every 6 hourly as patient is n.p.o. On lantus 35 units bid. 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 #History of CVA: On aspirin and high intensity statin #Depression and anxiety: on fluoxetine. #Nutrition: on tube feeds. Had PEG tube inserted by GI yesterday. DVT prophylaxis: on heparin. Charges/Coding Visit Charges Inpatient E&M: 24973 Subs Hosp L2
[2025-02-22] MEDS: Dextrose 10%-Water 250 ML 999 ML IV ×2 (17:49→23:20)
[2025-02-22] MEDS: Furosemide 100 MG/10 ML Vial 60 MG IV (17:51)
[2025-02-22 18:23] LABS: Bedside Glucose 154 mg/dL (74-106)
[2025-02-22 18:23] LABS: Bedside Glucose 56 mg/dL (74-106)
[2025-02-22] MEDS: Senna/Docusate Sodium 1 Tablet 2 TABLET PO (21:23)
[2025-02-22] MEDS: Atorvastatin Calcium 40 MG Tablet PO (21:25)
[2025-02-22 23:30] LABS: Bedside Glucose 62 mg/dL (74-106)
[2025-02-23] VITALS (38 sets, daily range): BP systolic 89–146; BP diastolic 43–95; PULSE 53–63; RESP 12–20; TEMP 35.9–36.6; O2SAT 95–100; BMI 39.8
[2025-02-23 01:25] LABS: Bedside Glucose 99 mg/dL (74-106)
[2025-02-23 05:20] LABS: Absolute Lymphocyte Count 1.04 X10^3/uL (0.83-4.51); Absolute Neutrophil Count 7.1 X10^3/uL (2.0-7.7); Basophil# 0.05 X10^3/uL; Basophil% 0.5 % (0-1); Eosinophil# 0.18 X10^3/uL; Hematocrit 27.5 % (37-47); Hemoglobin 8.2 g/dL (12.0-15.0); Lymphocyte # 1.04 X10^3/ul (0.83-4.51); Lymphocyte % 11.4 % (19-41); Mean Corp Hgb Conc 29.8 g/dL (32-36); Mean Corpuscular Hgb 21.6 pg (27.0-32.0); Mean Corpuscular Volume 72.6 fL (81-99); Mean Platelet Vol. 10.2 fl (6.2-12.0); Monocyte# 0.67 X10^3/uL; Monocyte% 7.3 % (0-10); NRBC Flagged by Analyzer 0 % (0-5); Neutrophil # 7.14 X10^3/uL (2.7-7.7); Neutrophil % 78.4 % (47-70); Platelet Count 398 K/mm3 (150-450); RBC Distribution Width CV 19.4 % (11.6-14.6); Red Blood Count 3.79 M/mm3 (4.2-5.4); White Blood Count 9.1 K/mm3 (4.4-11.0)
--- NOTE | 2025-02-23 05:30 | RAD_ITS ---
PROCEDURE: CHEST 1 VIEW (PORTABLE) 02/23/2025 REASON FOR EXAM: RESPIRATORY FAILURE TECHNIQUE: Frontal view of the chest. COMPARISON: 02/17/2025 FINDINGS: Endotracheal tube again seen satisfactory appearing position. Right-sided tunnel dialysis catheter again noted. Nasogastric tube no longer present. Suggestion of mild interval increase in the patchy opacity at the right base. No significant interval change in left base opacity. Likely small bilateral pleural effusions again noted. RAD/Chest 1 View (Portable) IMPRESSION: Endotracheal tube again seen satisfactory appearing position. Right-sided tunnel dialysis catheter again noted. Nasogastric tube no longer present. Suggestion of mild interval increase in the patchy opacity at the right base. N o significant interval change in left base opacity. Likely small bilateral pleural effusions again noted. Reading Location: [id number]
[2025-02-23 05:31] LABS: Allen Test Positive; Base Excess 1 mmol/L (-2 to +2); Bicarbonate 24.3 mmol/L (22-26); Blood Gas Specimen Type ART; Mode AC; O2 Delivery Device ET Tube; PEEP 5; PO2 73 mmHG (75-100); RR 14; SITE R Radial; SO2 96 % (95-99); Total Carbon Dioxide 25 mmol/L; pCO2 33.8 mmHg (35-45); pH 7.46 (7.35-7.45)
[2025-02-23 05:39] LABS: Anion Gap 12 (5-15); BUN 62 mg/dL (4-19); BUN/Creat Ratio 33.4 RATIO (10-20); Calcium,Total 8.8 mg/dL (7.6-11.0); Carbon Dioxide 20.9 mmol/L (21.0-32.0); Chloride 98 mmol/L (98-108); Creatinine, Serum 1.86 mg/dL (0.70-1.20); EST Glomerular Filtration Rate 28 (>60); Estimated Creatinine Clearance 31.46 ml/min (50-250); Glucose 47 mg/dL (70-99); Potassium 3.3 mmol/L (3.3-5.1); Sodium Level 130 mmol/L (133-145)
[2025-02-23] MEDS: Dextrose 10%-Water 250 ML 999 ML IV (05:40)
[2025-02-23] MEDS: guaiFENesin 10 ML UDC (200MG/10ML) NG ×3 (05:43→22:33)
[2025-02-23] MEDS: Menthol/Lanolin/Calamine/Znox 113 GM Tube 1 APPLIC TOPICAL ×3 (05:43→22:34)
[2025-02-23] MEDS: hydrALAZINE 10 MG Tablet PO ×3 (05:44→22:31)
[2025-02-23 06:17] LABS: Bedside Glucose 43 mg/dL (74-106)
[2025-02-23 07:02] LABS: Bedside Glucose 117 mg/dL (74-106)
--- NOTE | 2025-02-23 08:44 | PN.CC_ITS ---
Objective Data Objective Data Vital Signs: Vital Signs Last response 3 Temperature 36.3 C L 02/23/25 08:00 Temperature Source Temporal 02/23/25 08:00 Pulse Rate 57 L 02/23/25 08:00 Pulse Strength Normal (2+) 02/22/25 08:47 Respiratory Rate 15 02/23/25 08:00 Respiratory Effort Mechanically Ventilated 02/23/25 04:00 Respiratory Depth Normal 02/23/25 04:00 Respiratory Pattern Normal 02/23/25 04:00 Blood Pressure 127/43 H 02/23/25 08:00 Blood Pressure Mean 71 02/23/25 08:00 Blood Pressure Source Monitor 02/23/25 08:00 Blood Pressure Position Semi-Fowlers 02/23/25 08:00 Blood Pressure Location Left Forearm 02/23/25 08:00 Pulse Ox 98 02/23/25 08:00 Oxygen Delivery Method Mechanical Ventilator 02/23/25 08:00 Oxygen Flow Rate (L/min) 95 02/15/25 15:15 Fraction of Inspired Oxygen (FIO2) 02/23/25 08:00 I&O: I&O Last 24 Hours 3 02/22/25 02/22/25 02/23/25 11:59 23:59 11:59 Intake Total 497.04 / 2034.04 1517.0 / 2034.04 360.2 / 360.2 Output Total 250 / 1125 500 / 1125 525 / 525 Balance 247.04 / 909.04 1017.0 / 909.04 -164.8 / -164.8 I&O: Total Stay 3 02/05/25 09:43 thru 02/23/25 08:03 Intake Total 58371.54 Output Total 18879 Balance -5906.46 Current Meds Ordered / Administered: Current meds ordered / Administered 3 Generic Name Dose Route Start Last Admin Trade Name Freq PRN Reason Stop Dose Admin Acetaminophen 650 mg 02/05/25 13:41 02/07/25 23:29 Acetaminophen 325 Mg Tablet PO 650 mg Q6H PRN PRN Administration Pain 1-10 Or Fever >100.7 Albuterol Sulfate 2.5 mg 02/22/25 11:14 Albuterol 2.5 Mg/3 Ml Vial.Neb. INHALATION Q8H.RT PRN WHEEZING OR COUGH Aspirin 81 mg 02/06/25 08:00 02/23/25 07:46 Aspirin E.C. 81 Mg Tablet PO Not Given BREAKFAST [facility]1983 Atorvastatin Calcium 40 mg 02/05/25 22:00 02/22/25 21:25 Atorvastatin Calcium 40 Mg Tablet PO 40 mg QHS PARMINDER Administration Calamine/Phenol 1 applic 02/11/25 22:00 02/23/25 05:43 Menthol/Lanolin/Calamine/Znox 113 Gm Tube TOPICAL 1 applic TID [facility]1983 Administration Protocol Carvedilol 6.25 mg 02/05/25 19:30 02/23/25 07:46 Carvedilol 6.25 Mg Tablet PO Not Given BIDCM [facility]1983 Protocol Chlorhexidine Gluconate 15 ml 02/10/25 10:00 02/22/25 21:27 Chlorhexidine 15 Ml PO 15 ml BID PARMINDER Administration Chlorhexidine Gluconate 1 each 02/13/25 10:00 02/22/25 09:43 Chlorhexidine Gluc 2% Cloth 1 Each [place] TOPICAL Not Given DAILY [facility]1983 Fentanyl Citrate 50 mcg 02/11/25 11:33 Fentanyl 100 Mcg/2 Ml Ampul IV Q1H PRN PRN CPOT score > 3 Fluoxetine HCl 10 mg 02/06/25 10:00 02/22/25 09:58 Fluoxetine 10 Mg Capsule PO 10 mg DAILY [facility] Administration Furosemide 60 mg 02/22/25 18:00 02/22/25 17:51 Furosemide 100 Mg/10 Ml Vial IV 60 mg BIDLX [facility]1983 Administration Protocol Guaifenesin 10 ml 02/10/25 14:00 02/23/25 05:43 Guaifenesin 10 Ml Udc (200mg/10ml) NG 10 ml Q8H PARMINDER Administration Heparin Sodium (Porcine) 5,000 unit 02/08/25 14:00 02/13/25 22:45 Heparin Injection (Vial) 5,000 Unit/Ml Vial SC Not Given Q8 PARMINDER Hydralazine HCl 10 mg 02/06/25 08:30 02/23/25 05:44 Hydralazine 10 Mg Tablet PO 10 mg TID PARMINDER Administration Protocol Sodium Chloride 250 mls @ 15 mls/hr 02/05/25 16:53 02/11/25 16:00 IV 0 mls/hr .[id number] PRN Infusion Saline Flush Sodium Chloride 250 mls @ 15 mls/hr 02/05/25 16:53 IV .[id number] PRN Additional IVPB Infusion Pantoprazole Sodium 40 mg/ 110 mls @ 330 mls/hr 02/08/25 12:30 02/22/25 10:09 Sodium Chloride IV Infused Q24 PARMINDER Infusion Dexmedetomidine HCl 1,000 mcg/ 250 mls @ 13.463 mls/hr 02/10/25 01:30 02/23/25 08:00 Sodium Chloride CONT INF 1 mcg/kg/hr .[id number] PARMINDER 26.9 mls/hr Titration Protocol 0.5 MCG/KG/HR Enteral Nutritional Formula 1,000 mls @ 30 mls/hr 02/14/25 15:30 02/23/25 08:03 Nepro Carb Steady GT Infused .[id number] PARMINDER Infusion Dextrose 125 mls @ 999 mls/hr 02/21/25 12:24 02/23/25 05:48 Dextrose 10%-Water IV Infused .Q8M PRN Infusion [id number] Insulin Glargine 35 unit 02/16/25 10:00 02/22/25 23:00 Insulin Glargine-Yfgn 100 Unit/Ml Pen SC Not Given BID [facility] Insulin Human Lispro 0 unit 02/16/25 12:00 02/23/25 05:42 Insulin Lispro 100 Unit/Ml Insuln.Pen SC Not Given Q6 [facility] Protocol Isosorbide Dinitrate 5 mg 02/06/25 10:00 02/22/25 21:30 Isosorbide Dn 10 Mg Tablet PO 5 mg BID PARMINDER Administration Protocol Multi-Ingredient Ointment 1 applic 02/21/25 10:26 02/21/25 18:45 Mineral Oil/Petrolatum Cr 1.75oz Bottle TOPICAL 1 applic 4X/DAY PRN PRN Administration Dry Lips Protocol Polyethylene Glycol 17 gm 02/07/25 10:00 02/22/25 09:53 Polyethylene Glycol 3350 17 Gm Packet PO Not Given DAILY PARMINDER Senna/Docusate Sodium 2 tablet 02/07/25 10:00 02/22/25 21:23 Senna/Docusate Sodium 1 Tablet PO 2 tablet BID PARMINDER Administration Sodium Chloride 10 - 40 ml 02/05/25 16:13 02/18/25 05:45 0.9% Saline Lock 10 Ml Syringe IV 30 ml UD PRN Administration SALINE FLUSH Lab / Micro Data 02/23/25 04:51 02/23/25 04:51 Labs: Laboratory Results - last 24 hr 02/22/25 12:05: POC Glucose 104 02/22/25 17:43: POC Glucose 56 L 02/22/25 18:05: POC Glucose 154 H 02/22/25 23:11: POC Glucose 62 L 02/22/25 23:50: POC Glucose 99 02/23/25 04:51: WBC 9.1, RBC 3.79 L, Hgb 8.2 L, Hct 27.5 L, MCV 72.6 L, MCH 21.6 L, MCHC 29.8 L, RDW Std Deviation 50.0 H, RDW Coeff of Bulmaro 19.4 H, Plt Count 398, MPV 10.2, Immature Gran % (Auto) 0.400, Neut % (Auto) 78.4 H, Lymph % (Auto) 11.4 L, Vernon % (Auto) 7.3, Eos % (Auto) 2.0, Baso % (Auto) 0.5, Absolute Neuts (auto) 7.1, Absolute Lymphs (auto) 1.04, Nucleated RBC % 0, Sodium 130 L, Potassium 3.3, Chloride 98, Carbon Dioxide 20.9 L, Anion Gap 12, BUN 62 H, C reatinine 1.86 H, Estim Creat Clear Calc 31.46 L, Est GFR (MDRD) Non-Af 28 L, B UN/Creatinine Ratio 33.4 H, Glucose 47 L, Calcium 8.8 02/23/25 05:36: POC Glucose 43 L* 02/23/25 06:43: POC Glucose 117 H ABG Data ABG results: ABG 02/23/25 05:25 Specimen Type ART Sample Site R Radial pH 7.46 H Bicarbonate Actual 24.3 Total CO2 25 Base Excess 1 O2 Saturation 96 O2 % 25.0 ABG pCO2 33.8 L ABG pO2 73 L Harvey Test Positive Respiration Rate 14 O2 Delivery Device ET Tube Vent Mode AC Tidal Volume 450.0 POC PEEP 5 Rhythm Strip Rhythm Strip: Sinus Rhythm Rate: 104 Imaging Radiology Impression Chest X-Ray 02/23/25 05:30 IMPRESSION: Endotracheal tube again seen satisfactory appearing position. Right-sided tunnel dialysis catheter again noted. Nasogastric tube no longer present. Suggestion of mild interval increase in the patchy opacity at the right base. No significant interval change in left base opacity. Likely small bilateral pleural effusions again noted. Reading Location: [facility] Assessment and Plan . Assessment and plan: Subjective: No acute events o/n. Physical Exam: Gen - NAD, obese, intubated HEENT - MMM. ETT in place Resp - Diminished BS. Mechanically ventilated CV - RRR. No m/g/r Abd - Soft, NT, ND Ext - No c/c. +edema Skin - No rashes? Neuro - Sedated, intubated I have reviewed the pertinent vital sign, laboratory, and imaging data. ASSESSMENT: # Acute hypoxic and hypercapneic respiratory failure ? intubated 02/08 # CHF exacerbation ? EF 15% # Sepsis # Presumptive E coli UTI # ELIDA on CKD - requiring HD initiation # h/o CVA # DM # Anemia # Depression/anxiety # Morbid obesity PLAN: -Cont VC vent 450/14//%. Follow ABG/CXR intermittently -Pt has repeatedly failed SBTs. Tentative plan for tracheostomy on Wednesday. s/p PEG -Cont IV lasix as per nephrology. s/p several sessions of HD earlier in stay, last on 02/21 -s/p abx for UTI -Monitor Cr, UOP -Follow CBC FEN/GI: TF Proph DVT/GI: SQ heparin, protonix Critical Care Time: 50 mins The entirety of this encounter was done via telemedicine using both audio and video. Consent was unable to be obtained for the telemedicine encounter due to the patient's mental status.
[2025-02-23] MEDS: Chlorhexidine 15 ML PO ×2 (10:11→22:30)
[2025-02-23] MEDS: CHLORHEXIDINE GLUC 2% CLOTH 1 EACH TOWELETTE TOPICAL (10:11)
[2025-02-23] MEDS: FLUoxetine 10 MG Capsule PO (10:12)
[2025-02-23] MEDS: Senna/Docusate Sodium 1 Tablet 2 TABLET PO ×2 (10:12→22:31)
[2025-02-23] MEDS: Isosorbide DN 10 MG Tablet 5 MG PO ×2 (10:12→22:31)
[2025-02-23] MEDS: Polyethylene Glycol 3350 17 GM PACKET PO (10:12)
[2025-02-23] MEDS: dexMEDEtomidine 1,000 MCG in 0.9% Normal Saline (250mL Bag) 240 ML 26.9 MCG CONT INF ×3 (10:14→19:55)
[2025-02-23] MEDS: Furosemide 100 MG/10 ML Vial 60 MG IV ×2 (10:17→17:03)
[2025-02-23] MEDS: NEPRO 1,000 ML 10 ML GT (10:24)
[2025-02-23] MEDS: Pantoprazole Sodium 40 MG in 0.9% Normal Saline (100mL MB+) 100 ML 330 MG IV (10:31)
--- NOTE | 2025-02-23 11:44 | PCM.PN.REN ---
Subjective Subjective no new events Objective Data Objective Data Vital Signs: Vital Signs Temp Pulse Resp BP Pulse Ox O2 Del Method O2 Flow Rate 97.4 F L 56 L 14 119/47 L 98 Mechanical Ventilator 95 02/23/25 08:00 02/23/25 11:05 02/23/25 11:00 02/23/25 11:00 02/23/25 11:00 02/23/25 11:00 02/15/25 15:15 FiO2 25 02/23/25 11:00 Oxygen Flow Rate (L/min) 95 Oxygen Delivery Method Mechanical Ventilator Weight: 108.55 kg Body Mass Index (BMI) 39.8 Intake & Output: Intake and Output for Last 24 Hours 02/21/25 02/22/25 02/23/25 23:59 23:59 23:59 Intake Total 1457.46 / 1514.36 555.62 / 555.62 Output Total 425 / 500 750 / 1125 775 / 775 Balance 1032.46 / 1014.36 1264.04 / 909.04 -219.38 / -219.38 Lab / Micro Data 02/23/25 04:51 02/23/25 04:51 Labs: Laboratory Results - last 24 hr 02/22/25 12:05: POC Glucose 104 02/22/25 17:43: POC Glucose 56 L 02/22/25 18:05: POC Glucose 154 H 02/22/25 23:11: POC Glucose 62 L 02/22/25 23:50: POC Glucose 99 02/23/25 04:51: WBC 9.1, RBC 3.79 L, Hgb 8.2 L, Hct 27.5 L, MCV 72.6 L, MCH 21.6 L, MCHC 29.8 L, RDW Std Deviation 50.0 H, RDW Coeff of Bulmaro 19.4 H, Plt Count 398, MPV 10.2, Immature Gran % (Auto) 0.400, Neut % (Auto) 78.4 H, Lymph % (Auto) 11.4 L, [place] % (Auto) 7.3, Eos % (Auto) 2.0, Baso % (Auto) 0.5, Absolute Neuts (auto) 7.1, Absolute Lymphs (auto) 1.04, Nucleated RBC % 0, Sodium 130 L, Potassium 3.3, Chloride 98, Carbon Dioxide 20.9 L, Anion Gap 12, BUN 62 H, Creatinine 1.86 H, Estim Creat Clear Calc 31.46 L, Est GFR (MDRD) Non-Af 28 L, BUN/Creatinine Ratio 33.4 H, Glucose 47 L, Calcium 8.8 02/23/25 05:36: POC Glucose 43 L* 02/23/25 06:43: POC Glucose 117 H Micro: Microbiology 02/05/25 12:15 Blood Culture (Wb) - Left Wrist Blood Culture - Final No growth in 5 days. 02/05/25 12:04 Blood Culture (Wb) - Right Hand Blood Culture - Final No growth in 5 days. 02/08/25 11:15 Sputum, Induced/Lukens Gram Stain - Final 02/08/25 11:15 Sputum, Induced/Lukens Respiratory Culture - Final Mixed normal respiratory dave. No Streptococcus pneumoniae, beta-hemolytic Streptococcus or Staphylococcus aureus isolated. 02/08/25 00:05 Stool Stool Occult Blood (TREVOR) - Final 02/05/25 11:20 Urine Catheter - Catheter Urine Culture - Final Presumptive E. coli 02/05/25 16:50 Nasal Secretion MRSA (PCR) - Final 02/05/25 16:50 Wound - Leg, Left Skin and Soft Tissue MRSA/MSSA (PCR - Final ABG Data ABG results: ABG 02/23/25 05:25 Specimen Type ART Sample Site R Radial pH 7.46 H Bicarbonate Actual 24.3 Total CO2 25 Base Excess 1 O2 Saturation 96 O2 % 25.0 ABG pCO2 33.8 L ABG pO2 73 L Harvey Test Positive Respiration Rate 14 O2 Delivery Device ET Tube Vent Mode AC Tidal Volume 450.0 POC PEEP 5 Radiography Diagnostic Testing: Radiology Impression Chest X-Ray 02/23/25 05:30 IMPRESSION: Endotracheal tube again seen satisfactory appearing position. Right-sided tunnel dialysis catheter again noted. Nasogastric tube no longer present. Suggestion of mild interval increase in the patchy opacity at the right base. No significant interval change in left base opacity. Likely small bilateral pleural effusions again noted. Reading Location: [facility] Rhythm Strip Rhythm Strip: Sinus Rhythm Rate: 104 Physical Exam Narrative On ventilator support s1s2 no murmurs Diminished breath sounds abdomen soft Edema bilateral legs morillo + clear yellow urine in bag tunneled HD catheter dressing C/D/I Assessment & Plan Assessment/Plan (1) ELIDA (acute kidney injury): (2) Chronic kidney disease (CKD): QUALIFIERS: Chronic kidney disease stage: stage 4 (GFR 15-29) Qualified Code(s): N18.4 - Chronic kidney disease, stage 4 (severe) PLAN: Plan Impression/Plan: Patient is a 74-year-old female with past history of type 2 diabetes mellitus, hypertension, CAD, ischemic cardiomyopathy with HFrEF (EF 15%), pulmonary hypertension, stroke, and hyperlipidemia. Patient presents to the hospital on 02/05/2025 with 1 week history of progressively worsening dyspnea and lower extremity edema. Patient was admitted to the hospital for treatment of acute hypoxic respiratory failure requiring NIV. Nephrology is following for ELIDA on CKD. -Hypervolemia acute kidney injury superimposed on CKD stage IV. Baseline SCr 1.80 to 2.00 mg/dL prior to this admission. Suspect ELIDA is secondary to cardiorenal syndrome. Did not respond well to IV diuresis. Started dialysis 02/14/2025. HD 02/21 plan is for trach and PEG BUN and creatinine are about the same. Since there is no plans for extubation, there is no need for aggressive volume removal in dialysis. Her creatinine is close to baseline. continue lasix. continue to hold dialysis.
--- NOTE | 2025-02-23 12:23 | PCM.PROGNOTE ---
Subjective Subjective Patient seen and examined. She still remains intubated. Unable to do comprehensive review of systems. She is alert and able to shake her head on her diet and response to questions. She is awaiting trach by ENT. Objective Data Objective Data Vital Signs: Vital Signs Temp Pulse Resp BP Pulse Ox O2 Del Method O2 Flow Rate 96.6 F L 55 L 14 117/45 L 98 Mechanical Ventilator 95 02/23/25 12:00 02/23/25 12:00 02/23/25 12:00 02/23/25 12:00 02/23/25 12:00 02/23/25 12:00 02/15/25 15:15 FiO2 02/23/25 12:00 Oxygen Flow Rate (L/min) 95 Oxygen Delivery Method Mechanical Ventilator Weight: 239 lb 5 oz Body Mass Index (BMI) 39.8 Intake & Output: Intake and Output for Last 24 Hours 02/21/25 02/22/25 02/23/25 23:59 23:59 23:59 Intake Total 1457.46 / 1514.36 555.62 / 555.62 Output Total 425 / 500 750 / 1125 775 / 775 Balance 1032.46 / 1014.36 1264.04 / 909.04 -219.38 / -219.38 Lab / Micro Data 02/23/25 04:51 02/23/25 04:51 Labs: Laboratory Results - last 24 hr 02/22/25 12:05: POC Glucose 104 02/22/25 17:43: POC Glucose 56 L 02/22/25 18:05: POC Glucose 154 H 02/22/25 23:11: POC Glucose 62 L 02/22/25 23:50: POC Glucose 99 02/23/25 04:51: WBC 9.1, RBC 3.79 L, Hgb 8.2 L, Hct 27.5 L, MCV 72.6 L, MCH 21.6 L, MCHC 29.8 L, RDW Std Deviation 50.0 H, RDW Coeff of Bulmaro 19.4 H, Plt Count 398, MPV 10.2, Immature Gran % (Auto) 0.400, Neut % (Auto) 78.4 H, Lymph % (Auto) 11.4 L, [place] % (Auto) 7.3, Eos % (Auto) 2.0, Baso % (Auto) 0.5, Absolute Neuts (auto) 7.1, Absolute Lymphs (auto) 1.04, Nucleated RBC % 0, Sodium 130 L, Potassium 3.3, Chloride 98, Carbon Dioxide 20.9 L, Anion Gap 12, BUN 62 H, Creatinine 1.86 H, Estim Creat Clear Calc 31.46 L, Est GFR (MDRD) Non-Af 28 L, BUN/Creatinine Ratio 33.4 H, Glucose 47 L, Calcium 8.8 02/23/25 05:36: POC Glucose 43 L* 02/23/25 06:43: POC Glucose 117 H Micro: Microbiology 02/05/25 12:15 Blood Culture (Wb) - Left Wrist Blood Culture - Final No growth in 5 days. 02/05/25 12:04 Blood Culture (Wb) - Right Hand Blood Culture - Final No growth in 5 days. 02/08/25 11:15 Sputum, Induced/Lukens Gram Stain - Final 02/08/25 11:15 Sputum, Induced/Lukens Respiratory Culture - Final Mixed normal respiratory dave. No Streptococcus pneumoniae, beta-hemolytic Streptococcus or Staphylococcus aureus isolated. 02/08/25 00:05 Stool Stool Occult Blood (TREVOR) - Final 02/05/25 11:20 Urine Catheter - Catheter Urine Culture - Final Presumptive E. coli 02/05/25 16:50 Nasal Secretion MRSA (PCR) - Final 02/05/25 16:50 Wound - Leg, Left Skin and Soft Tissue MRSA/MSSA (PCR - Final ABG Data ABG results: ABG 02/23/25 05:25 Specimen Type ART Sample Site R Radial pH 7.46 H Bicarbonate Actual 24.3 Total CO2 25 Base Excess 1 O2 Saturation 96 O2 % 25.0 ABG pCO2 33.8 L ABG pO2 73 L Harvey Test Positive Respiration Rate 14 O2 Delivery Device ET Tube Vent Mode AC Tidal Volume 450.0 POC PEEP 5 Radiography Diagnostic Testing: Radiology Impression Chest X-Ray 02/23/25 05:30 IMPRESSION: Endotracheal tube again seen satisfactory appearing position. Right-sided tunnel dialysis catheter again noted. Nasogastric tube no longer present. Suggestion of mild interval increase in the patchy opacity at the right base. No significant interval change in left base opacity. Likely small bilateral pleural effusions again noted. Reading Location: [facility] Rhythm Strip Rhythm Strip: Sinus Rhythm Rate: 104 Physical Exam Const alert and no apparent distress Constitutional Narrative: flat affect, RASS score is 0. General Appearance: cooperative, intubated and patient mechanically ventilated HEENT normocephalic and head/scalp atraumatic Eyes PERRL, EOMs intact bilaterally and conjunctivae normal Neck no lymphadenopathy, supple and no JVD Lymph Lymphatic: no lymphadenopathy noted and no lymphedema noted Resp Resp Narrative: mildly diminished breath sounds bibasally, no wheezes or crackles. On the ventilator, with PEEP of 5 and FiO2 of 30 Cardio regular rate, regular rhythm, S1 normal heart sound, S2 normal heart sound and no murmurs GI normal to inspection, nondistended, normoactive bowel sounds, soft to palpation, non-tender and non-distended; Negative for hepatosplenomegaly Extremity normal capillary refill and no clubbing, cyanosis or edema General Extremity: edema and no tenderness to palpation of joints or extremities Skin no rashes or lesions noted General Skin Exam: no breakdown Neuro no focal motor deficits Neuro Narrative: Follows simple commands. RASS score is 0. Flat affect Sensorium / Orientation: sedated on vent Motor Exam: general weakness Psych Psych Narrative: alert, flat affect. RASS score is 0; on precedex drip. Appearance: intubated Mood & Affect: flat affect Assessment & Plan Assessment/Plan (1) Acute respiratory failure with hypoxia and hypercarbia: (2) Acute on chronic combined systolic (congestive) and diastolic (congestive) heart failure: (3) Cardiac LV ejection fraction 10-20%: (4) Cellulitis of right anterior lower leg: PLAN: Plan #Acute hypoxic and hypercapnic respiratory failure due to acute exacerbation of combined heart failure Remains intubated. Remains on minimal vent settings with PEEP of 5 and FiO2 of 25 today However she has failed numerous spontaneous breathing trials. Titrate oxygen to maintain saturation above 90%. She is having dialysis also which should help with fluid removal. Management as per critical care. Critical care recommended ENT consult for Trach and GI for PEG. Had PEG tube inserted. ENT Consulted, still awaiting trach insertion #Acute on chronic combined heart failure On IV Lasix and also received metolazone. on carvedilol #Elevated troponins: Thought to be due to demand ischemia and therefore type II non-STEMI. She does have a history of CAD s/p stents. Carvedilol held due to CHF exacerbation and fluid overload and to be resumed once fluid overload resolves. On Imdur #ELIDA on CKD IV: Patient requiring dialysis. Nephrology on board. Cr today is 1.86 today. Management as per nephrology. #Chronic iron deficiency anemia: Hb today is 8.2. Will monitor and transfuse if Hb <7 #Type 2 diabetes mellitus: On insulin sliding scale. Accu-Cheks every 6 hourly as patient is n.p.o. On lantus 35 units bid. 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 #History of CVA: On aspirin and high intensity statin #Depression and anxiety: on fluoxetine. #Nutrition: on tube feeds. Had PEG tube inserted by GI. DVT prophylaxis: on heparin. Charges/Coding Visit Charges Inpatient E&M: 36646 Subs Hosp L2
[2025-02-23 12:42] LABS: Bedside Glucose 73 mg/dL (74-106)
--- NOTE | 2025-02-23 14:13 | CASEMGMT ---
Discharge Planning Updates sent to [facility]. Mary Spears DC Planning Asst.
[2025-02-23 17:35] LABS: Bedside Glucose 88 mg/dL (74-106)
[2025-02-23] MEDS: Insulin Glargine-YFGN 100 UNIT/ML Pen 35 UNIT SC (22:30)
[2025-02-23] MEDS: Atorvastatin Calcium 40 MG Tablet PO (22:31)
[2025-02-24] VITALS (34 sets, daily range): BP systolic 107–148; BP diastolic 37–82; PULSE 50–58; RESP 14–21; TEMP 36.3–36.7; O2SAT 96–100; BMI 39.5
[2025-02-24 00:14] LABS: Bedside Glucose 73 mg/dL (74-106)
[2025-02-24] MEDS: Dextrose 50%-Water 25 GM/50 ML DISP.SYRIN IV (01:14)
[2025-02-24 01:47] LABS: Bedside Glucose 162 mg/dL (74-106)
[2025-02-24 01:47] LABS: Bedside Glucose 61 mg/dL (74-106)
[2025-02-24 03:22] LABS: Bedside Glucose 112 mg/dL (74-106)
[2025-02-24 05:19] LABS: Absolute Lymphocyte Count 0.89 X10^3/uL (0.83-4.51); Absolute Neutrophil Count 6.8 X10^3/uL (2.0-7.7); Basophil# 0.06 X10^3/uL; Basophil% 0.7 % (0-1); Eosinophil# 0.22 X10^3/uL; Eosinophils% 2.5 % (0-5); Hematocrit 27.9 % (37-47); Hemoglobin 8.3 g/dL (12.0-15.0); Lymphocyte # 0.89 X10^3/ul (0.83-4.51); Lymphocyte % 10.2 % (19-41); Mean Corp Hgb Conc 29.7 g/dL (32-36); Mean Corpuscular Hgb 21.8 pg (27.0-32.0); Mean Corpuscular Volume 73.2 fL (81-99); NRBC Flagged by Analyzer 0 % (0-5); Neutrophil % 78.1 % (47-70); Platelet Count 402 K/mm3 (150-450); RBC Distribution Width CV 18.9 % (11.6-14.6); RBC Distribution Width SD 49.6 fl (35.1-43.9); Red Blood Count 3.81 M/mm3 (4.2-5.4); White Blood Count 8.7 K/mm3 (4.4-11.0)
[2025-02-24 05:33] LABS: Bedside Glucose 97 mg/dL (74-106)
[2025-02-24 05:50] LABS: Anion Gap 14 (5-15); BUN 62 mg/dL (4-19); BUN/Creat Ratio 37.1 RATIO (10-20); Calcium,Total 8.8 mg/dL (7.6-11.0); Chloride 99 mmol/L (98-108); Creatinine, Serum 1.67 mg/dL (0.70-1.20); EST Glomerular Filtration Rate 32 (>60); Estimated Creatinine Clearance 34.98 ml/min (50-250); Glucose 109 mg/dL (70-99); Potassium 3.4 mmol/L (3.3-5.1); Sodium Level 134 mmol/L (133-145)
[2025-02-24] MEDS: hydrALAZINE 10 MG Tablet PO ×3 (06:01→21:59)
[2025-02-24] MEDS: Menthol/Lanolin/Calamine/Znox 113 GM Tube 1 APPLIC TOPICAL ×3 (06:02→22:00)
[2025-02-24] MEDS: guaiFENesin 10 ML UDC (200MG/10ML) NG ×3 (06:02→21:59)
[2025-02-24 07:04] LABS: Bedside Glucose 99 mg/dL (74-106)
[2025-02-24] MEDS: Carvedilol 6.25 MG Tablet PO ×2 (08:09→13:24)
[2025-02-24] MEDS: Isosorbide DN 10 MG Tablet 5 MG PO ×2 (08:09→22:01)
[2025-02-24] MEDS: dexMEDEtomidine 1,000 MCG in 0.9% Normal Saline (250mL Bag) 240 ML 26.9 MCG CONT INF ×2 (08:09→18:00)
[2025-02-24] MEDS: FLUoxetine 10 MG Capsule PO (08:10)
[2025-02-24] MEDS: Senna/Docusate Sodium 1 Tablet 2 TABLET PO ×2 (08:10→21:59)
[2025-02-24] MEDS: Aspirin E.C. 81 MG Tablet PO (08:11)
[2025-02-24] MEDS: Insulin Glargine-YFGN 100 UNIT/ML Pen 15 UNIT SC ×2 (08:11→22:00)
[2025-02-24] MEDS: Chlorhexidine 15 ML PO ×2 (08:12→22:00)
[2025-02-24] MEDS: Furosemide 100 MG/10 ML Vial 60 MG IV ×2 (08:12→16:43)
[2025-02-24] MEDS: CHLORHEXIDINE GLUC 2% CLOTH 1 EACH TOWELETTE TOPICAL (08:12)
[2025-02-24] MEDS: Polyethylene Glycol 3350 17 GM PACKET PO ×3 (08:12→22:01)
--- NOTE | 2025-02-24 09:20 | PN.HOSP_ITS ---
Reason for Visit Reason for Visit: Diagnoses Type 2 diabetes mellitus with foot ulcer (02/05/25) Unspecified protein-calorie malnutrition (02/05/25) Mixed hyperlipidemia (02/05/25) Essential (primary) hypertension (02/05/25) Atherosclerotic heart disease of [place] coronary artery without angina pectoris (02/05/25) Secondary pulmonary arterial hypertension (02/05/25) Acute on chronic combined systolic (congestive) and diastolic (congestive) heart failure (02/05/25) Acute respiratory failure with hypoxia (02/05/25) Acute respiratory failure with hypercapnia (02/05/25) Respiratory failure, unspecified, unspecified whether with hypoxia or hypercapnia (02/05/25) Cellulitis of right lower limb (02/05/25) Non-pressure chronic ulcer of other part of unspecified foot with unspecified severity (02/05/25) Acute kidney failure, unspecified (02/05/25) Chronic kidney disease, stage 4 (severe) (02/05/25) Urinary tract infection, site not specified (02/05/25) Other specified abnormal findings of blood chemistry (02/05/25) Abnormal findings on diagnostic imaging of heart and coronary circulation (02/05/25) Objective Data Objective Data Vital Signs: Vital Signs Temp Pulse Resp BP Pulse Ox O2 Del Method O2 Flow Rate 97.7 F L 55 L 15 129/46 H 100 Mechanical Ventilator 95 02/24/25 08:00 02/24/25 08:00 02/24/25 08:00 02/24/25 08:00 02/24/25 08:00 02/24/25 08:00 02/15/25 15:15 FiO2 25 02/24/25 08:00 Oxygen Flow Rate (L/min) 95 Oxygen Delivery Method Mechanical Ventilator Weight: 237 lb 10.533 oz Body Mass Index (BMI) 39.5 Intake & Output: Intake and Output for Last 24 Hours 02/22/25 02/23/25 02/24/25 23:59 23:59 23:59 Intake Total 2033. 1120.14 / 1140.14 300.86 / 300.86 Output Total 750 / 1125 1725 / 1725 525 / 525 Balance 1264.04 / 909.04 -604.86 / -584.86 -224.14 / -224.14 Lab / Micro Data 02/24/25 05:13 02/24/25 05:13 Labs: Laboratory Results - last 24 hr 02/23/25 12:20: POC Glucose 73 L 02/23/25 17:01: POC Glucose 88 02/23/25 23:44: POC Glucose 73 L 02/24/25 01:08: POC Glucose 61 L 02/24/25 01:27: POC Glucose 162 H 02/24/25 03:03: POC Glucose 112 H 02/24/25 05:08: POC Glucose 97 02/24/25 05:13: WBC 8.7, RBC 3.81 L, Hgb 8.3 L, Hct 27.9 L, MCV 73.2 L, MCH 21.8 L, MCHC 29.7 L, RDW Std Deviation 49.6 H, RDW Coeff of Bulmaro 18.9 H, Plt Count 402, MPV 10.0, Immature Gran % (Auto) 0.500, Neut % (Auto) 78.1 H, Lymph % (Auto) 10.2 L, [place] % (Auto) 8.0, Eos % (Auto) 2.5, Baso % (Auto) 0.7, Absolute Neuts (auto) 6.8, Absolute Lymphs (auto) 0.89, Nucleated RBC % 0, Sodium 134, Potassium 3.4, Chloride 99, Carbon Dioxide 21.0, Anion Gap 14, BUN 62 H, C reatinine 1.67 H, Estim Creat Clear Calc 34.98 L, Est GFR (MDRD) Non-Af 32 L, B UN/Creatinine Ratio 37.1 H, Glucose 109 H, Calcium 8.8 02/24/25 06:47: POC Glucose 99 Micro: Microbiology 02/05/25 12:15 Blood Culture (Wb) - Left Wrist Blood Culture - Final No growth in 5 days. 02/05/25 12:04 Blood Culture (Wb) - Right Hand Blood Culture - Final No growth in 5 days. 02/08/25 11:15 Sputum, Induced/Lukens Gram Stain - Final 02/08/25 11:15 Sputum, Induced/Lukens Respiratory Culture - Final Mixed normal respiratory dave. No Streptococcus pneumoniae, beta-hemolytic Streptococcus or Staphylococcus aureus isolated. 02/08/25 00:05 Stool Stool Occult Blood (TREVOR) - Final 02/05/25 11:20 Urine Catheter - Catheter Urine Culture - Final Presumptive E. coli 02/05/25 16:50 Nasal Secretion MRSA (PCR) - Final 02/05/25 16:50 Wound - Leg, Left Skin and Soft Tissue MRSA/MSSA (PCR - Final Rhythm Strip Rhythm Strip: Sinus Rhythm Rate: 104 Physical Exam Narrative Seen and examined Patient intubated on ventilator. Total output documented 1725 mL. Not dialyzed since last Wednesday. Had bowel movement. PEG tube. Plan for tracheostomy, no schedule yet Physical exam: General: Awake, orientation cannot be ascertained. HEENT: Atraumatic, PERRLA, EOMI, Normocephalic. Oral: ET teeth. Augmentin 8 Neck: Supple, Negative Carotid Bruits Chest wall/Lungs: Air entry severely diminished in all lung kiran. On vent settings Cardiovascular: Sinus bradycardia, heart rate 54 pulmonary Abdomen: Bowel Sounds sluggish soft, Non Tender, Non-Distended. PEG tube present : No dysuria. No renal angle tenderness. No suprapubic tenderness. Extremities: 1-2+ bilateral pitting edema, Capillary Refill Less than 3 Seconds Skin: Bilateral Addy wrap bandage. Had lymphedema and erosions, healing Musculoskeletal: No Tenderness to Palpation of Joints or Extremities. ROM restricted Neurological: Intubated, no lateralizing signs. Limited exam. Intubated Psych/Mental Status: Flat affect. Assessment & Plan Assessment/Plan (1) Acute respiratory failure with hypoxia and hypercarbia: (2) Acute on chronic combined systolic (congestive) and diastolic (congestive) heart failure: (3) Cardiac LV ejection fraction 10-20%: (4) Cellulitis of right anterior lower leg: PLAN: Plan #Acute hypoxic and hypercapnic respiratory failure due to acute exacerbation of combined heart failure * Remains intubated. Remains on minimal vent settings with PEEP of 5 and FiO2 of 25 today * However she has failed numerous spontaneous breathing trials. * Titrate oxygen to maintain saturation above 90%. * She is having dialysis also which should help with fluid removal. * Management as per critical care. * Critical care recommended ENT consult for Trach and GI for PEG. * Had PEG tube inserted. ENT Consulted, still awaiting trach insertion 02/24: On Precedex. #Acute on chronic combined heart failure * On IV Lasix and also received metolazone. * on carvedilol 02/24: Patient on negative fluid balance, cumulative -6.5 L. #Elevated troponins: * Thought to be due to demand ischemia and therefore type II non-STEMI. * She does have a history of CAD s/p stents. Carvedilol held due to CHF exacerbation and fluid overload and to be resumed once fluid overload resolves. * On Imdur #ELIDA on CKD IV: * Patient requiring dialysis. Nephrology on board. * Cr today is 1.86 today. Management as per nephrology. 02/24: BUN/creatinine 62/1.67. Discussed with the dialysis nurse. Did not require dialysis since last Wednesday. #Chronic iron deficiency anemia: Hb today is 8.2. Will monitor and transfuse if Hb <7 02/06: H&H similar last few days. #Type 2 diabetes mellitus: On insulin sliding scale. Accu-Cheks every 6 hourly as patient is n.p.o. On lantus 35 units bid. 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 #History of CVA: On aspirin and high intensity statin #Depression and anxiety: on fluoxetine. #Nutrition: on tube feeds. Had PEG tube inserted by GI. DVT prophylaxis: on heparin. Charges/Coding Visit Charges Inpatient E&M: 95561 Subs Hosp L3
--- NOTE | 2025-02-24 09:41 | PN.CC_ITS ---
Objective Data Objective Data Vital Signs: Vital Signs Last response 3 Temperature 36.5 C L 02/24/25 08:00 Temperature Source Temporal 02/24/25 08:00 Pulse Rate 53 L 02/24/25 09:00 Pulse Strength Normal (2+) 02/23/25 20:17 Respiratory Rate 18 02/24/25 09:00 Respiratory Effort Mechanically Ventilated 02/24/25 06:00 Respiratory Depth Normal 02/24/25 06:00 Respiratory Pattern Normal 02/24/25 07:12 Blood Pressure 122/41 H 02/24/25 09:00 Blood Pressure Mean 68 02/24/25 09:00 Blood Pressure Source Monitor 02/24/25 09:00 Blood Pressure Position Supine 02/24/25 09:00 Blood Pressure Location Left Arm 02/24/25 09:00 Pulse Ox 100 02/24/25 09:00 Oxygen Delivery Method Mechanical Ventilator 02/24/25 09:00 Oxygen Flow Rate (L/min) 95 02/15/25 15:15 Fraction of Inspired Oxygen (FIO2) 25 02/24/25 09:00 I&O: I&O Last 24 Hours 3 02/23/25 02/23/25 02/24/25 11:59 23:59 11:59 Intake Total 555.62 / 1140.14 564.52 / 1140.14 300.86 / 300.86 Output Total 775 / 1725 950 / 1725 525 / 525 Balance -219.38 / -584.86 -385.48 / -584.86 -224.14 / -224.14 I&O: Total Stay 3 02/05/25 09:43 thru 02/24/25 08:00 Intake Total 12711.34 Output Total 23710 Balance -6570.66 Current Meds Ordered / Administered: Current meds ordered / Administered 3 Generic Name Dose Route Start Last Admin Trade Name Freq PRN Reason Stop Dose Admin Acetaminophen 650 mg 02/05/25 13:41 02/07/25 23:29 Acetaminophen 325 Mg Tablet PO 650 mg Q6H PRN PRN Administration Pain 1-10 Or Fever >100.7 Albuterol Sulfate 2.5 mg 02/22/25 11:14 Albuterol 2.5 Mg/3 Ml Vial.Neb. INHALATION Q8H.RT PRN WHEEZING OR COUGH Aspirin 81 mg 02/06/25 08:00 02/24/25 08:11 Aspirin E.C. 81 Mg Tablet PO 81 mg BREAKFAST PARMINDER Administration Atorvastatin Calcium 40 mg 02/05/25 22:00 02/23/25 22:31 Atorvastatin Calcium 40 Mg Tablet PO 40 mg QHS PARMINDER Administration Calamine/Phenol 1 applic 02/11/25 22:00 02/24/25 06:02 Menthol/Lanolin/Calamine/Znox 113 Gm Tube TOPICAL 1 applic TID PARMINDER Administration Protocol Carvedilol 6.25 mg 02/05/25 19:30 02/24/25 08:09 Carvedilol 6.25 Mg Tablet PO 6.25 mg BIDCM [facility] Administration Protocol Chlorhexidine Gluconate 15 ml 02/10/25 10:00 02/24/25 08:12 Chlorhexidine 15 Ml PO 15 ml BID PARMINDER Administration Chlorhexidine Gluconate 1 each 02/13/25 10:00 02/24/25 08:12 Chlorhexidine Gluc 2% Cloth 1 Each [place] TOPICAL 1 each DAILY PARMINDER Administration Fentanyl Citrate 50 mcg 02/11/25 11:33 Fentanyl 100 Mcg/2 Ml Ampul IV Q1H PRN PRN CPOT score > 3 Fluoxetine HCl 10 mg 02/06/25 10:00 02/24/25 08:10 Fluoxetine 10 Mg Capsule PO 10 mg DAILY PARMINDER Administration Furosemide 60 mg 02/22/25 18:00 02/24/25 08:12 Furosemide 100 Mg/10 Ml Vial IV 60 mg BIDLX PARMINDER Administration Protocol Guaifenesin 10 ml 02/10/25 14:00 02/24/25 06:02 Guaifenesin 10 Ml Udc (200mg/10ml) NG 10 ml Q8H PARMINDER Administration Heparin Sodium (Porcine) 5,000 unit 02/08/25 14:00 02/13/25 22:45 Heparin Injection (Vial) 5,000 Unit/Ml Vial SC Not Given Q8 [facility] Hydralazine HCl 10 mg 02/06/25 08:30 02/24/25 06:01 Hydralazine 10 Mg Tablet PO 10 mg TID PARMINDER Administration Protocol Sodium Chloride 250 mls @ 15 mls/hr 02/05/25 16:53 02/23/25 12:38 IV Infused .[id number] PRN Infusion Saline Flush Sodium Chloride 250 mls @ 15 mls/hr 02/05/25 16:53 IV .[id number] PRN Additional IVPB Infusion Pantoprazole Sodium 40 mg/ 110 mls @ 330 mls/hr 02/08/25 12:30 02/23/25 11:12 Sodium Chloride IV Infused Q24 PARMINDER Infusion Dexmedetomidine HCl 1,000 mcg/ 250 mls @ 13.463 mls/hr 02/10/25 01:30 02/24/25 08:09 Sodium Chloride CONT INF 1 mcg/kg/hr .[id number] PARMINDER 26.9 mls/hr Administration Protocol 0.5 MCG/KG/HR Enteral Nutritional Formula 1,000 mls @ 30 mls/hr 02/14/25 15:30 02/24/25 01:30 Nepro Carb Steady GT 10 mls/hr .[id number] PARMINDER Infusion Dextrose 125 mls @ 999 mls/hr 02/21/25 12:24 02/23/25 05:48 Dextrose 10%-Water IV Infused .Q8M PRN Infusion HYPOGLYCEMIA Insulin Glargine 15 unit 02/24/25 10:00 02/24/25 08:11 Insulin Glargine-Yfgn 100 Unit/Ml Pen SC 15 unit BID PARMINDER Administration Insulin Human Lispro 0 unit 02/16/25 12:00 02/24/25 06:01 Insulin Lispro 100 Unit/Ml Insuln.Pen SC Not Given Q6 [facility] Protocol Isosorbide Dinitrate 5 mg 02/06/25 10:00 02/24/25 08:09 Isosorbide Dn 10 Mg Tablet PO 5 mg BID PARMINDER Administration Protocol Multi-Ingredient Ointment 1 applic 02/21/25 10:26 02/21/25 18:45 Mineral Oil/Petrolatum Cr 1.75oz Bottle TOPICAL 1 applic 4X/DAY PRN PRN Administration Dry Lips Protocol Polyethylene Glycol 17 gm 02/07/25 10:00 02/24/25 08:12 Polyethylene Glycol 3350 17 Gm Packet PO 17 gm DAILY PARMINDER Administration Senna/Docusate Sodium 2 tablet 02/07/25 10:00 02/24/25 08:10 Senna/Docusate Sodium 1 Tablet PO 2 tablet BID PARMINDER Administration Sodium Chloride 10 - 40 ml 02/05/25 16:13 02/18/25 05:45 0.9% Saline Lock 10 Ml Syringe IV 30 ml UD PRN Administration SALINE FLUSH Lab / Micro Data 02/24/25 05:13 02/24/25 05:13 Labs: Laboratory Results - last 24 hr 02/23/25 12:20: POC Glucose 73 L 02/23/25 17:01: POC Glucose 88 02/23/25 23:44: POC Glucose 73 L 02/24/25 01:08: POC Glucose 61 L 02/24/25 01:27: POC Glucose 162 H 02/24/25 03:03: POC Glucose 112 H 02/24/25 05:08: POC Glucose 97 02/24/25 05:13: WBC 8.7, RBC 3.81 L, Hgb 8.3 L, Hct 27.9 L, MCV 73.2 L, MCH 21.8 L, MCHC 29.7 L, RDW Std Deviation 49.6 H, RDW Coeff of Bulmaro 18.9 H, Plt Count 402, MPV 10.0, Immature Gran % (Auto) 0.500, Neut % (Auto) 78.1 H, Lymph % (Auto) 10.2 L, [place] % (Auto) 8.0, Eos % (Auto) 2.5, Baso % (Auto) 0.7, Absolute Neuts (auto) 6.8, Absolute Lymphs (auto) 0.89, Nucleated RBC % 0, Sodium 134, Potassium 3.4, Chloride 99, Carbon Dioxide 21.0, Anion Gap 14, BUN 62 H, C reatinine 1.67 H, Estim Creat Clear Calc 34.98 L, Est GFR (MDRD) Non-Af 32 L, B UN/Creatinine Ratio 37.1 H, Glucose 109 H, Calcium 8.8 02/24/25 06:47: POC Glucose 99 Rhythm Strip Rhythm Strip: Sinus Rhythm Rate: 104 Assessment and Plan . Assessment and plan: Subjective: No acute events o/n. Physical Exam: Gen - NAD, obese, intubated HEENT - MMM. ETT in place Resp - Diminished BS. Mechanically ventilated CV - RRR. No m/g/r Abd - Soft, NT, ND Ext - No c/c/e Skin - No rashes? Neuro - Sedated, intubated. Awake and can follow some commands I have reviewed the pertinent vital sign, laboratory, and imaging data. ASSESSMENT: # Acute hypoxic and hypercapneic respiratory failure ? intubated 02/08 # CHF exacerbation ? EF 15% # Sepsis # Presumptive E coli UTI # ELIDA on CKD - requiring HD initiation # h/o CVA # DM # Anemia # Depression/anxiety # Morbid obesity PLAN: -Cont VC vent 450/14//%. Follow ABG/CXR intermittently -Pt has repeatedly failed SBTs d/t low Vt/tachypnea. Tentative plan for tracheostomy on Wednesday. s/p PEG -Cont IV lasix as per nephrology. s/p several sessions of HD earlier in stay, last on 02/21 -s/p abx for UTI -Monitor Cr, UOP -Follow CBC -Replete electrolytes PRN -TF held d/t high residuals. Try resuming at trickle, increase bowel regimen. Will try avoiding reglan for now given prolonged QTc FEN/GI: Cont trickle TF Proph DVT/GI: SQ heparin, protonix Critical Care Time: 50 mins The entirety of this encounter was done via telemedicine using both audio and video. Consent was unable to be obtained for the telemedicine encounter due to the patient's mental status.
[2025-02-24] MEDS: Pantoprazole Sodium 40 MG in 0.9% Normal Saline (100mL MB+) 100 ML 330 MG IV (10:40)
[2025-02-24] MEDS: Potassium Chloride Oral Soln 20 MEQ/15 ML UDC 40 MEQ PO (10:48)
[2025-02-24 11:41] LABS: Bedside Glucose 99 mg/dL (74-106)
[2025-02-24 17:11] LABS: Bedside Glucose 119 mg/dL (74-106)
[2025-02-24] MEDS: Atorvastatin Calcium 40 MG Tablet PO (22:01)
[2025-02-25] VITALS (34 sets, daily range): BP systolic 103–158; BP diastolic 44–79; PULSE 48–101; RESP 14–24; TEMP 36.6–36.7; O2SAT 94–100; BMI 39.5
[2025-02-25 02:03] LABS: Bedside Glucose 120 mg/dL (74-106)
[2025-02-25] MEDS: 0.9% Saline Lock 10 ML Syringe IV (03:41)
[2025-02-25] MEDS: dexMEDEtomidine 1,000 MCG in 0.9% Normal Saline (250mL Bag) 240 ML 26.9 MCG CONT INF ×3 (03:41→23:29)
[2025-02-25] MEDS: Menthol/Lanolin/Calamine/Znox 113 GM Tube 1 APPLIC TOPICAL ×3 (05:46→22:38)
[2025-02-25] MEDS: hydrALAZINE 10 MG Tablet PO ×3 (05:46→22:39)
[2025-02-25] MEDS: guaiFENesin 10 ML UDC (200MG/10ML) NG ×3 (05:46→22:38)
[2025-02-25 06:04] LABS: Absolute Lymphocyte Count 0.96 X10^3/uL (0.83-4.51); Absolute Neutrophil Count 5.2 X10^3/uL (2.0-7.7); Basophil# 0.07 X10^3/uL; Eosinophil# 0.18 X10^3/uL; Eosinophils% 2.5 % (0-5); Hematocrit 27.1 % (37-47); Lymphocyte # 0.96 X10^3/ul (0.83-4.51); Lymphocyte % 13.5 % (19-41); Mean Corp Hgb Conc 29.5 g/dL (32-36); Mean Corpuscular Hgb 21.6 pg (27.0-32.0); Mean Corpuscular Volume 73.2 fL (81-99); Mean Platelet Vol. 10.6 fl (6.2-12.0); Monocyte# 0.63 X10^3/uL; Monocyte% 8.9 % (0-10); NRBC Flagged by Analyzer 0 % (0-5); Neutrophil # 5.24 X10^3/uL (2.7-7.7); Neutrophil % 73.8 % (47-70); Platelet Count 397 K/mm3 (150-450); RBC Distribution Width CV 18.8 % (11.6-14.6); White Blood Count 7.1 K/mm3 (4.4-11.0)
[2025-02-25 07:00] LABS: Anion Gap 14 (5-15); BUN 58 mg/dL (4-19); BUN/Creat Ratio 38.5 RATIO (10-20); Calcium,Total 8.9 mg/dL (7.6-11.0); Chloride 102 mmol/L (98-108); Creatinine, Serum 1.51 mg/dL (0.70-1.20); EST Glomerular Filtration Rate 36 (>60); Estimated Creatinine Clearance 38.65 ml/min (50-250); Glucose 119 mg/dL (70-99); Magnesium 1.9 mg/dL (1.5-2.2); Potassium 3.9 mmol/L (3.3-5.1); Sodium Level 137 mmol/L (133-145)
[2025-02-25 07:18] LABS: Phosphorus 3.7 mg/dL (2.7-4.5)
[2025-02-25] MEDS: Senna/Docusate Sodium 1 Tablet 2 TABLET PO ×2 (08:13→22:39)
[2025-02-25] MEDS: FLUoxetine 10 MG Capsule PO (08:13)
[2025-02-25] MEDS: Polyethylene Glycol 3350 17 GM PACKET PO ×2 (08:13→22:39)
[2025-02-25] MEDS: Carvedilol 6.25 MG Tablet PO ×2 (08:14→16:01)
[2025-02-25] MEDS: Isosorbide DN 10 MG Tablet 5 MG PO ×2 (08:14→22:39)
[2025-02-25] MEDS: Aspirin E.C. 81 MG Tablet PO (08:14)
[2025-02-25] MEDS: Furosemide 100 MG/10 ML Vial 60 MG IV ×2 (08:15→18:05)
[2025-02-25] MEDS: CHLORHEXIDINE GLUC 2% CLOTH 1 EACH TOWELETTE TOPICAL (08:15)
[2025-02-25] MEDS: Chlorhexidine 15 ML PO ×2 (08:15→22:38)
[2025-02-25] MEDS: Insulin Glargine-YFGN 100 UNIT/ML Pen 15 UNIT SC ×2 (08:16→22:40)
[2025-02-25] MEDS: Pantoprazole Sodium 40 MG in 0.9% Normal Saline (100mL MB+) 100 ML 330 MG IV (08:16)
--- NOTE | 2025-02-25 08:26 | PN.HOSP_ITS ---
Reason for Visit Reason for Visit: Diagnoses Type 2 diabetes mellitus with foot ulcer (02/05/25) Unspecified protein-calorie malnutrition (02/05/25) Mixed hyperlipidemia (02/05/25) Essential (primary) hypertension (02/05/25) Atherosclerotic heart disease of [place] coronary artery without angina pectoris (02/05/25) Secondary pulmonary arterial hypertension (02/05/25) Acute on chronic combined systolic (congestive) and diastolic (congestive) heart failure (02/05/25) Acute respiratory failure with hypoxia (02/05/25) Acute respiratory failure with hypercapnia (02/05/25) Respiratory failure, unspecified, unspecified whether with hypoxia or hypercapnia (02/05/25) Cellulitis of right lower limb (02/05/25) Non-pressure chronic ulcer of other part of unspecified foot with unspecified severity (02/05/25) Acute kidney failure, unspecified (02/05/25) Chronic kidney disease, stage 4 (severe) (02/05/25) Urinary tract infection, site not specified (02/05/25) Other specified abnormal findings of blood chemistry (02/05/25) Abnormal findings on diagnostic imaging of heart and coronary circulation (02/05/25) Objective Data Objective Data Vital Signs: Vital Signs Temp Pulse Resp BP Pulse Ox O2 Del Method O2 Flow Rate 97.8 F 52 L 14 153/60 H 99 Mechanical Ventilator 95 02/25/25 00:00 02/25/25 07:03 02/25/25 07:03 02/25/25 07:00 02/25/25 07:03 02/25/25 07:00 02/15/25 15:15 FiO2 25 02/25/25 07:03 Oxygen Flow Rate (L/min) 95 Oxygen Delivery Method Mechanical Ventilator Weight: 237 lb 3.478 oz Body Mass Index (BMI) 39.5 Intake & Output: Intake and Output for Last 24 Hours 02/23/25 02/24/25 02/25/25 23:59 23:59 23:59 Intake Total 1120.14 / 1140.14 1213.69 / 1240.59 324.72 / 324.72 Output Total 1725 / 1725 1425 / 1425 500 / 500 Balance -604.86 / -584.86 -211.31 / -184.41 -175.28 / -175.28 Lab / Micro Data 02/25/25 05:46 02/25/25 05:46 Labs: Laboratory Results - last 24 hr 02/24/25 11:23: POC Glucose 99 02/24/25 16:42: POC Glucose 119 H 02/25/25 00:50: POC Glucose 120 H 02/25/25 05:46: WBC 7.1, RBC 3.70 L, Hgb 8.0 L, Hct 27.1 L, MCV 73.2 L, MCH 21.6 L, MCHC 29.5 L, RDW Std Deviation 50.0 H, RDW Coeff of Bulmaro 18.8 H, Plt Count 397, MPV 10.6, Immature Gran % (Auto) 0.300, Neut % (Auto) 73.8 H, Lymph % (Auto) 13.5 L, [place] % (Auto) 8.9, Eos % (Auto) 2.5, Baso % (Auto) 1.0, Absolute Neuts (auto) 5.2, Absolute Lymphs (auto) 0.96, Nucleated RBC % 0, Sodium 137, Potassium 3.9, Chloride 102, Carbon Dioxide 21.0, Anion Gap 14, BUN 58 H, C reatinine 1.51 H, Estim Creat Clear Calc 38.65 L, Est GFR (MDRD) Non-Af 36 L, B UN/Creatinine Ratio 38.5 H, Glucose 119 H, Calcium 8.9, Phosphorus 3.7, Magnesium 1.9 Micro: Microbiology 02/05/25 12:15 Blood Culture (Wb) - Left Wrist Blood Culture - Final No growth in 5 days. 02/05/25 12:04 Blood Culture (Wb) - Right Hand Blood Culture - Final No growth in 5 days. 02/08/25 11:15 Sputum, Induced/Lukens Gram Stain - Final 02/08/25 11:15 Sputum, Induced/Lukens Respiratory Culture - Final Mixed normal respiratory dave. No Streptococcus pneumoniae, beta-hemolytic Streptococcus or Staphylococcus aureus isolated. 02/08/25 00:05 Stool Stool Occult Blood (TREVOR) - Final 02/05/25 11:20 Urine Catheter - Catheter Urine Culture - Final Presumptive E. coli 02/05/25 16:50 Nasal Secretion MRSA (PCR) - Final 02/05/25 16:50 Wound - Leg, Left Skin and Soft Tissue MRSA/MSSA (PCR - Final Rhythm Strip Rhythm Strip: Sinus Rhythm Rate: 104 Physical Exam Narrative Seen and examined Patient intubated on ventilator. Urine output charted 1400 mL, clear to slight yellow-colored. Patient's tube feed residual is high. Not dialyzed since last Wednesday. Had bowel movement. PEG tube. Plan for tracheostomy, no schedule yet Physical exam: General: Awake, orientation cannot be ascertained. HEENT: Atraumatic, PERRLA, EOMI, Normocephalic. Oral: ET tube. Neck: Supple, Negative Carotid Bruits Chest wall/Lungs: Air entry severely diminished in all lung kiran. On vent settings Cardiovascular: Sinus bradycardia, no murmur Abdomen: Bowel Sounds sluggish soft, Non Tender, Non-Distended. PEG tube present : No dysuria. No renal angle tenderness. No suprapubic tenderness. Extremities: 1-2+ bilateral pitting edema, Capillary Refill Less than 3 Seconds Skin: Bilateral Addy wrap bandage. Had lymphedema and erosions, healing Musculoskeletal: No Tenderness to Palpation of Joints or Extremities. ROM restricted Neurological: Intubated, no lateralizing signs. Limited exam. Intubated Psych/Mental Status: Flat affect. Assessment & Plan Assessment/Plan (1) Acute respiratory failure with hypoxia and hypercarbia: (2) Acute on chronic combined systolic (congestive) and diastolic (congestive) heart failure: (3) Cardiac LV ejection fraction 10-20%: (4) Cellulitis of right anterior lower leg: PLAN: Plan #Acute hypoxic and hypercapnic respiratory failure due to acute exacerbation of combined heart failure * Remains intubated. Remains on minimal vent settings with PEEP of 5 and FiO2 of 25 today * However she has failed numerous spontaneous breathing trials. * Titrate oxygen to maintain saturation above 90%. * She is having dialysis also which should help with fluid removal. * Management as per critical care. * Critical care recommended ENT consult for Trach and GI for PEG. * Had PEG tube inserted. ENT Consulted, still awaiting trach insertion 02/24: On Precedex. 02/25: No significant change in respiratory status. Patient has hide tube feed residual. Bowel sounds sluggish. KUB x-ray ordered. On vent setting 25% FiO2, 150/14/5. #Acute on chronic combined heart failure * On IV Lasix and also received metolazone. * on carvedilol 02/24: Patient on negative fluid balance, cumulative -6.5 L. #Elevated troponins: * Thought to be due to demand ischemia and therefore type II non-STEMI. * She does have a history of CAD s/p stents. Carvedilol held due to CHF exacerbation and fluid overload and to be resumed once fluid overload resolves. * On Imdur #ELIDA on CKD IV: * Patient requiring dialysis. Nephrology on board. * Cr today is 1.86 today. Management as per nephrology. 02/24: BUN/creatinine 62/1.67. Discussed with the dialysis nurse. Did not require dialysis since last Wednesday. 02/25: Creatinine gradually getting better. Creatinine is 1.51. Patient was admitted with 2.32, went up to 2.50. #Chronic iron deficiency anemia: Hb today is 8.2. Will monitor and transfuse if Hb <7 02/24: H&H similar last few days. 02/25: No significant change in H&H. #Type 2 diabetes mellitus: On insulin sliding scale. Accu-Cheks every 6 hourly as patient is n.p.o. On lantus 35 units bid. 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 #History of CVA: On aspirin and high intensity statin #Depression and anxiety: on fluoxetine. #Nutrition: on tube feeds. Had PEG tube inserted by GI. DVT prophylaxis: on heparin. Charges/Coding Visit Charges Inpatient E&M: 31763 Subs Hosp L3
--- NOTE | 2025-02-25 08:29 | PCM.PN.TICU ---
Objective Data Objective Data Vital Signs: Vital Signs Last response Temperature 36.6 C 02/25/25 00:00 Temperature Source Temporal 02/25/25 00:00 Pulse Rate 52 L 02/25/25 07:03 Pulse Strength Normal (2+) 02/24/25 19:26 Respiratory Rate 14 02/25/25 07:03 Respiratory Effort Mechanically Ventilated 02/25/25 04:00 Respiratory Depth Normal 02/25/25 04:00 Respiratory Pattern Normal 02/25/25 04:00 Blood Pressure 153/60 H 02/25/25 07:00 Blood Pressure Mean 91 02/25/25 07:00 Blood Pressure Source Monitor 02/25/25 07:00 Blood Pressure Position Semi-Fowlers 02/25/25 07:00 Blood Pressure Location Left Forearm 02/25/25 07:00 Pulse Ox 99 02/25/25 07:03 Oxygen Delivery Method Mechanical Ventilator 02/25/25 07:00 Oxygen Flow Rate (L/min) 95 02/15/25 15:15 Fraction of Inspired Oxygen (FIO2) 25 02/25/25 07:03 I&O: I&O Last 24 Hours 02/24/25 02/24/25 02/25/25 11:59 23:59 11:59 Intake Total 547.53 / 1240.59 666.16 / 1240.59 324.72 / 324.72 Output Total 725 / 1425 700 / 1425 500 / 500 Balance -177.47 / -184.41 -33.84 / -184.41 -175.28 / -175.28 I&O: Total Stay 02/05/25 09:43 thru 02/25/25 07:00 Intake Total 36823.89 Output Total 42830 Balance -6733.11 Current Meds Ordered / Administered: Current meds ordered / Administered Generic Name Dose Route Start Last Admin Trade Name Freq PRN Reason Stop Dose Admin Acetaminophen 650 mg 02/05/25 13:41 02/07/25 23:29 Acetaminophen 325 Mg Tablet PO 650 mg Q6H PRN PRN Administration Pain 1-10 Or Fever >100.7 Albuterol Sulfate 2.5 mg 02/22/25 11:14 Albuterol 2.5 Mg/3 Ml Vial.Neb. INHALATION Q8H.RT PRN WHEEZING OR COUGH Aspirin 81 mg 02/06/25 08:00 02/25/25 08:14 Aspirin E.C. 81 Mg Tablet PO 81 mg BREAKFAST PARMINDER Administration Atorvastatin Calcium 40 mg 02/05/25 22:00 02/24/25 22:01 Atorvastatin Calcium 40 Mg Tablet PO 40 mg QHS PARMINDER Administration Calamine/Phenol 1 applic 02/11/25 22:00 02/25/25 05:46 Menthol/Lanolin/Calamine/Znox 113 Gm Tube TOPICAL 1 applic TID PARMINDER Administration Protocol Carvedilol 6.25 mg 02/05/25 19:30 02/25/25 08:14 Carvedilol 6.25 Mg Tablet PO 6.25 mg BIDCM PARMINDER Administration Protocol Chlorhexidine Gluconate 15 ml 02/10/25 10:00 02/25/25 08:15 Chlorhexidine 15 Ml PO 15 ml BID PARMINDER Administration Chlorhexidine Gluconate 1 each 02/13/25 10:00 02/25/25 08:15 Chlorhexidine Gluc 2% Cloth 1 Each [place] TOPICAL 1 each DAILY PARMINDER Administration Fentanyl Citrate 50 mcg 02/11/25 11:33 Fentanyl 100 Mcg/2 Ml Ampul IV Q1H PRN PRN CPOT score > 3 Fluoxetine HCl 10 mg 02/06/25 10:00 02/25/25 08:13 Fluoxetine 10 Mg Capsule PO 10 mg DAILY PARMINDER Administration Furosemide 60 mg 02/22/25 18:00 02/25/25 08:15 Furosemide 100 Mg/10 Ml Vial IV 60 mg BIDLX PARMINDER Administration Protocol Guaifenesin 10 ml 02/10/25 14:00 02/25/25 05:46 Guaifenesin 10 Ml Udc (200mg/10ml) NG 10 ml Q8H PARMINDER Administration Heparin Sodium (Porcine) 5,000 unit 02/08/25 14:00 02/13/25 22:45 Heparin Injection (Vial) 5,000 Unit/Ml Vial SC Not Given Q8 [facility] Hydralazine HCl 10 mg 02/06/25 08:30 02/25/25 05:46 Hydralazine 10 Mg Tablet PO 10 mg TID PARMINDER Administration Protocol Sodium Chloride 250 mls @ 15 mls/hr 02/05/25 16:53 02/23/25 12:38 IV Infused .[id number] PRN Infusion Saline Flush Sodium Chloride 250 mls @ 15 mls/hr 02/05/25 16:53 IV .[id number] PRN Additional IVPB Infusion Pantoprazole Sodium 40 mg/ 110 mls @ 330 mls/hr 02/08/25 12:30 02/25/25 08:16 Sodium Chloride IV 330 mls/hr Q24 PARMINDER Administration Dexmedetomidine HCl 1,000 mcg/ 250 mls @ 13.463 mls/hr 02/10/25 01:30 02/25/25 07:00 Sodium Chloride CONT INF 1 mcg/kg/hr .[id number] PARMINDER 26.9 mls/hr Titration Protocol 0.5 MCG/KG/HR Enteral Nutritional Formula 1,000 mls @ 30 mls/hr 02/14/25 15:30 02/25/25 05:47 Nepro Carb Steady GT 10 mls/hr .[id number] PARMINDER Infusion Dextrose 125 mls @ 999 mls/hr 02/21/25 12:24 02/23/25 05:48 Dextrose 10%-Water IV Infused .Q8M PRN Infusion HYPOGLYCEMIA Insulin Glargine 15 unit 02/24/25 10:00 02/25/25 08:16 Insulin Glargine-Yfgn 100 Unit/Ml Pen SC 15 unit BID PARMINDER Administration Insulin Human Lispro 0 unit 02/16/25 12:00 02/25/25 06:36 Insulin Lispro 100 Unit/Ml Insuln.Pen SC Not Given Q6 [facility] Protocol Isosorbide Dinitrate 5 mg 02/06/25 10:00 02/25/25 08:14 Isosorbide Dn 10 Mg Tablet PO 5 mg BID PARMINDER Administration Protocol Multi-Ingredient Ointment 1 applic 02/21/25 10:02/21/25 18:45 Mineral Oil/Petrolatum Cr 1.75oz Bottle TOPICAL 1 applic 4X/DAY PRN PRN Administration Dry Lips Protocol Polyethylene Glycol 17 gm 02/24/25 10:00 02/25/25 08:13 Polyethylene Glycol 3350 17 Gm Packet PO 17 gm BID PARMINDER Administration Senna/Docusate Sodium 2 tablet 02/07/25 10:00 02/25/25 08:13 Senna/Docusate Sodium 1 Tablet PO 2 tablet BID PARMINDER Administration Sodium Chloride 10 - 40 ml 02/05/25 16:13 02/25/25 03:41 0.9% Saline Lock 10 Ml Syringe IV 30 ml UD PRN Administration SALINE FLUSH Lab / Micro Data 02/25/25 05:46 02/25/25 05:46 Labs: Laboratory Results - last 24 hr 02/24/25 11:23: POC Glucose 99 02/24/25 16:42: POC Glucose 119 H 02/25/25 00:50: POC Glucose 120 H 02/25/25 05:46: WBC 7.1, RBC 3.70 L, Hgb 8.0 L, Hct 27.1 L, MCV 73.2 L, MCH 21.6 L, MCHC 29.5 L, RDW Std Deviation 50.0 H, RDW Coeff of Bulmaro 18.8 H, Plt Count 397, MPV 10.6, Immature Gran % (Auto) 0.300, Neut % (Auto) 73.8 H, Lymph % (Auto) 13.5 L, [place] % (Auto) 8.9, Eos % (Auto) 2.5, Baso % (Auto) 1.0, Absolute Neuts (auto) 5.2, Absolute Lymphs (auto) 0.96, Nucleated RBC % 0, Sodium 137, Potassium 3.9, Chloride 102, Carbon Dioxide 21.0, Anion Gap 14, BUN 58 H, Creatinine 1.51 H, Estim Creat Clear Calc 38.65 L, Est GFR (MDRD) Non-Af 36 L, BUN/Creatinine Ratio 38.5 H, Glucose 119 H, Calcium 8.9, Phosphorus 3.7, Magnesium 1.9 Rhythm Strip Rhythm Strip: Sinus Rhythm Rate: 104 Assessment and Plan . Assessment and plan: Subjective: No acute events o/n. Physical Exam: Gen - NAD, obese, intubated HEENT - MMM. ETT in place Resp - Diminished BS. Mechanically ventilated CV - RRR. No m/g/r Abd - Soft, NT, ND Ext - No c/c/e Skin - No rashes? Neuro - Sedated, intubated. Awake and can follow commands I have reviewed the pertinent vital sign, laboratory, and imaging data. ASSESSMENT: # Acute hypoxic and hypercapneic respiratory failure ? intubated 02/08 # CHF exacerbation ? EF 15% # Sepsis # Presumptive E coli UTI # ELIDA on CKD - requiring HD initiation # h/o CVA # DM # Anemia # Depression/anxiety # Morbid obesity PLAN: -Cont VC vent 450/14/02/18%. Follow ABG/CXR intermittently -Pt has repeatedly failed SBTs d/t low Vt/tachypnea. Tentative plan for tracheostomy on Wednesday. s/p PEG -Cont IV lasix as per nephrology. s/p several sessions of HD earlier in stay, last on 02/21 -s/p abx for UTI -Monitor Cr, UOP -Follow CBC -Replete electrolytes PRN -Tolerating trickle TF now, monitor for worsening abd sx. Increases bowel regimen. Trying to avoid reglan for now given prolonged QTc FEN/GI: Cont trickle TF Proph DVT/GI: SQ heparin, protonix Updated family at bedside Critical Care Time: 50 mins The entirety of this encounter was done via telemedicine using both audio and video. Consent was unable to be obtained for the telemedicine encounter due to patient's intubation.
--- NOTE | 2025-02-25 08:31 | RAD_ITS ---
PROCEDURE: ABDOMEN SINGLE VIEW (PORTABLE) 02/25/2025 REASON FOR EXAM: POSSIBLE ILEUS, HIGH TUBEFEED RESIDUAL TECHNIQUE: Single view abdomen. COMPARISON: None. FINDINGS: Loops of bowel are poorly visualized but nonspecific bowel gas pattern. No definite dilation. No suspicious calcifications. RAD/Abdomen Single View (Portable) IMPRESSION: Nonspecific bowel gas pattern. Reading Location: [place] [address]
[2025-02-25 12:15] LABS: Bedside Glucose 115 mg/dL (74-106)
--- NOTE | 2025-02-25 15:11 | PN.RENAL_ITS ---
Subjective Subjective No new event Objective Data Objective Data Vital Signs: Vital Signs Temp Pulse Resp BP Pulse Ox O2 Del Method O2 Flow Rate 98.1 F 51 L 16 105/56 L 99 Mechanical Ventilator 95 02/25/25 12:00 02/25/25 14:00 02/25/25 14:00 02/25/25 14:00 02/25/25 14:00 02/25/25 14:00 02/15/25 15:15 FiO2 25 02/25/25 14:00 Oxygen Flow Rate (L/min) 95 Oxygen Delivery Method Mechanical Ventilator Weight: 107.6 kg Body Mass Index (BMI) 39.5 Intake & Output: Intake and Output for Last 24 Hours 02/23/25 02/24/25 02/25/25 23:59 23:59 23:59 Intake Total 1120.14 / 1140.14 1213.69 / 1240.59 985.50 / 985.50 Output Total 1725 / 1725 1425 / 1425 4595 / 4595 Balance -604.86 / -584.86 -211.31 / -184.41 -3609.50 / -3609.50 Lab / Micro Data 02/25/25 05:46 02/25/25 05:46 Labs: Laboratory Results - last 24 hr 02/24/25 16:42: POC Glucose 119 H 02/25/25 00:50: POC Glucose 120 H 02/25/25 05:46: WBC 7.1, RBC 3.70 L, Hgb 8.0 L, Hct 27.1 L, MCV 73.2 L, MCH 21.6 L, MCHC 29.5 L, RDW Std Deviation 50.0 H, RDW Coeff of Bulmaro 18.8 H, Plt Count 397, MPV 10.6, Immature Gran % (Auto) 0.300, Neut % (Auto) 73.8 H, Lymph % (Auto) 13.5 L, [place] % (Auto) 8.9, Eos % (Auto) 2.5, Baso % (Auto) 1.0, Absolute Neuts (auto) 5.2, Absolute Lymphs (auto) 0.96, Nucleated RBC % 0, Sodium 137, Potassium 3.9, Chloride 102, Carbon Dioxide 21.0, Anion Gap 14, BUN 58 H, C reatinine 1.51 H, Estim Creat Clear Calc 38.65 L, Est GFR (MDRD) Non-Af 36 L, B UN/Creatinine Ratio 38.5 H, Glucose 119 H, Calcium 8.9, Phosphorus 3.7, Magnesium 1.9 02/25/25 11:24: POC Glucose 115 H Micro: Microbiology 02/05/25 12:15 Blood Culture (Wb) - Left Wrist Blood Culture - Final No growth in 5 days. 02/05/25 12:04 Blood Culture (Wb) - Right Hand Blood Culture - Final No growth in 5 days. 02/08/25 11:15 Sputum, Induced/Lukens Gram Stain - Final 02/08/25 11:15 Sputum, Induced/Lukens Respiratory Culture - Final Mixed normal respiratory dave. No Streptococcus pneumoniae, beta-hemolytic Streptococcus or Staphylococcus aureus isolated. 02/08/25 00:05 Stool Stool Occult Blood (TREVOR) - Final 02/05/25 11:20 Urine Catheter - Catheter Urine Culture - Final Presumptive E. coli 02/05/25 16:50 Nasal Secretion MRSA (PCR) - Final 02/05/25 16:50 Wound - Leg, Left Skin and Soft Tissue MRSA/MSSA (PCR - Final Radiography Diagnostic Testing: Radiology Impression KUB X-Ray 02/25/25 08:31 IMPRESSION: Nonspecific bowel gas pattern. Reading Location: [place] [id number] Rhythm Strip Rhythm Strip: Sinus Rhythm Rate: 104 Physical Exam Narrative On ventilator support s1s2 no murmurs Diminished breath sounds abdomen soft Edema bilateral legs morillo + clear yellow urine in bag tunneled HD catheter dressing C/D/I Assessment & Plan Assessment/Plan (1) ELIDA (acute kidney injury): (2) Chronic kidney disease (CKD): QUALIFIERS: Chronic kidney disease stage: stage 4 (GFR 15-29) Q ualified Code(s): N18.4 - Chronic kidney disease, stage 4 (severe) PLAN: Plan Impression/Plan: Patient is a 74-year-old female with past history of type 2 diabetes mellitus, hypertension, CAD, ischemic cardiomyopathy with HFrEF (EF 15%), pulmonary hypertension, stroke, and hyperlipidemia. Patient presents to the hospital on 02/05/2025 with 1 week history of progressively worsening dyspnea and lower extremity edema. Patient was admitted to the hospital for treatment of acute hypoxic respiratory failure requiring NIV. Nephrology is following for ELIDA on CKD. -Hypervolemia acute kidney injury superimposed on CKD stage IV. Baseline SCr 1.80 to 2.00 mg/dL prior to this admission. Suspect ELIDA is secondary to cardiorenal syndrome. Did not respond well to IV diuresis. Started dialysis 02/14/2025. HD 02/21 plan is for trach and PEG BUN and creatinine are about the same. Since there is no plans for extubation, there is no need for aggressive volume removal in dialysis. Her creatinine is close to baseline. continue lasix. continue to hold dialysis.
[2025-02-25 17:14] LABS: Base Excess 2 mmol/L (-2 to +2); Bicarbonate 25.6 mmol/L (22-26); Blood Gas Specimen Type ART; Mode AC; O2 Delivery Device Adult Vent; PEEP 5; PO2 82 mmHG (75-100); RR 14; SITE L Brach; SO2 97 % (95-99); Total Carbon Dioxide 27 mmol/L; pCO2 32.7 mmHg (35-45)
[2025-02-25 18:29] LABS: Bedside Glucose 97 mg/dL (74-106)
[2025-02-25] MEDS: Atorvastatin Calcium 40 MG Tablet PO (22:51)
[2025-02-25 23:39] LABS: Bedside Glucose 77 mg/dL (74-106)
[2025-02-26] VITALS (37 sets, daily range): BP systolic 115–153; BP diastolic 41–67; PULSE 53–66; RESP 13–22; TEMP 35.8–36.7; O2SAT 93–100; BMI 39.3
[2025-02-26 01:46] LABS: Bedside Glucose 73 mg/dL (74-106)
--- NOTE | 2025-02-26 04:15 | RAD_ITS ---
PROCEDURE: CHEST 1 VIEW (PORTABLE) 02/26/2025 REASON FOR EXAM: RESP FAILURE, CHF, INTUBATED TECHNIQUE: Frontal view of the chest. COMPARISON: 02/23/2025. FINDINGS: Endotracheal tube remains in good position. Right internal jugular double-lumen central catheter remains in good position. Mild increase in bilateral pleural effusions. Mild increase in passive atelectatic airspace disease of the lower lobes. Mild increase in central pulmonary venous congestion. Enlarged cardiac silhouette. Normal mediastinum and devendra. Normal visualized pulmonary arteries. Atheromatous plaques of the visualized aortic arch and descending thoracic aorta. Diffuse spondylosis of the visualized thoracic spine. Normal visualized ribs, clavicles. Degenerative joint disease. There is no demonstrated abnormality of the visualized soft tissue structures of the upper abdomen. RAD/Chest 1 View (Portable) IMPRESSION: Endotracheal tube remains in good position. Right internal jugular double-lumen central catheter remains in good position. Mild increase in bilateral pleural effusions. Mild increase in passive atelectatic airspace disease of the lower lobes. Mild increase in central pulmonary venous congestion. Enlarged cardiac silhouette. Reading Location: [facility]
[2025-02-26 05:47] LABS: Allen Test Positive; Base Excess 2 mmol/L (-2 to +2); Blood Gas Specimen Type ART; Mode AC; O2 Delivery Device Adult Vent; PO2 78 mmHG (75-100); RR 14; SITE L Radial; SO2 97 % (95-99); Total Carbon Dioxide 26 mmol/L; pCO2 33.6 mmHg (35-45); pH 7.48 (7.35-7.45)
[2025-02-26] MEDS: Menthol/Lanolin/Calamine/Znox 113 GM Tube 1 APPLIC TOPICAL ×3 (06:15→21:38)
[2025-02-26] MEDS: guaiFENesin 10 ML UDC (200MG/10ML) NG ×3 (06:16→21:37)
[2025-02-26] MEDS: 0.9% Saline Lock 10 ML Syringe IV (06:17)
[2025-02-26] MEDS: Dextrose 10%-Water 250 ML 999 ML IV (06:28)
[2025-02-26 06:29] LABS: Absolute Lymphocyte Count 1.06 X10^3/uL (0.83-4.51); Absolute Neutrophil Count 5.3 X10^3/uL (2.0-7.7); Basophil# 0.06 X10^3/uL; Basophil% 0.8 % (0-1); Eosinophil# 0.18 X10^3/uL; Eosinophils% 2.4 % (0-5); Hematocrit 27.9 % (37-47); Hemoglobin 8.2 g/dL (12.0-15.0); Lymphocyte # 1.06 X10^3/ul (0.83-4.51); Lymphocyte % 14.4 % (19-41); Mean Corp Hgb Conc 29.4 g/dL (32-36); Mean Corpuscular Hgb 21.6 pg (27.0-32.0); Mean Corpuscular Volume 73.4 fL (81-99); Mean Platelet Vol. 9.9 fl (6.2-12.0); Monocyte% 9.5 % (0-10); NRBC Flagged by Analyzer 0 % (0-5); Neutrophil # 5.33 X10^3/uL (2.7-7.7); Neutrophil % 72.5 % (47-70); Platelet Count 407 K/mm3 (150-450); RBC Distribution Width CV 18.7 % (11.6-14.6); RBC Distribution Width SD 49.4 fl (35.1-43.9); White Blood Count 7.4 K/mm3 (4.4-11.0)
[2025-02-26] MEDS: hydrALAZINE 10 MG Tablet PO ×3 (06:31→21:37)
[2025-02-26 06:41] LABS: Bedside Glucose 59 mg/dL (74-106)
[2025-02-26 07:04] LABS: Anion Gap 13 (5-15); BUN 52 mg/dL (4-19); BUN/Creat Ratio 38.2 RATIO (10-20); Calcium,Total 8.8 mg/dL (7.6-11.0); Carbon Dioxide 21.6 mmol/L (21.0-32.0); Chloride 101 mmol/L (98-108); Creatinine, Serum 1.35 mg/dL (0.70-1.20); EST Glomerular Filtration Rate 41 (>60); Estimated Creatinine Clearance 43.09 ml/min (50-250); Glucose 75 mg/dL (70-99); Potassium 3.4 mmol/L (3.3-5.1); Sodium Level 136 mmol/L (133-145)
[2025-02-26 07:23] LABS: Bedside Glucose 130 mg/dL (74-106)
--- NOTE | 2025-02-26 07:25 | PN.CC_ITS ---
Assessment & Plan Assessment/Plan (1) Acute on chronic combined systolic (congestive) and diastolic (congestive) heart failure: (2) Urinary tract infection: (3) Acute respiratory failure with hypoxia and hypercarbia: (4) Chronic kidney disease (CKD): QUALIFIERS: Chronic kidney disease stage: stage 4 (GFR 15-29) Q ualified Code(s): N18.4 - Chronic kidney disease, stage 4 (severe) PLAN: Plan RECOMMENDATIONS: 1. Continue assist-control mode of mechanical ventilation. Wean FiO2 and PEEP as tolerated. 2. Continue daily attempts at spontaneous breathing trials. 3. Proceed with tracheostomy given failure to wean from ventilator. 4. Ongoing diuresis along with goal-directed medical therapy. 5. Continue tube feeding as tolerated. Hold at midnight for tracheostomy tomorrow. 6. Continue appropriate ICU prophylaxis. 7. Ongoing dialysis support per nephrology recommendations. IMPRESSIONS: 1. Acute respiratory failure with hypoxemia and hypercapnia secondary to decompensated heart failure The patient was initially admitted to the hospital with acute decompensated congestive heart failure and UTI, but worsened from a respiratory perspective on the morning of February 08, with increasing oxygen requirement and lethargy. Subsequent ABG demonstrated acute CO2 retention, which was refractory to the use of noninvasive positive pressure ventilatory support. Therefore, the patient was intubated. The patient appears to have stabilized from a respiratory perspective following intubation. She will be continued on assist-control mode of mechanical ventilation, with a goal to wean FiO2 and PEEP as tolerated. Unfortunately, despite continued supportive care, the patient continues to fail attempts at spontaneous breathing trials. She is significantly debilitated and will require tracheostomy placement, which is tentatively scheduled for tomorrow. The patient is status post PEG tube placement on 02/21. 2. Acute on chronic combined systolic and diastolic heart failure Continue medical management per cardiology recommendations. 3. Acute on chronic kidney disease Suspect that this is related to underlying cardiorenal syndrome. The patient is being followed by nephrology with plans for ongoing hemodialysis. 4. Morbid obesity/anemia/diabetes mellitus/history of CVA/depression/anxiety Complicates care, management, recovery and prognosis. Continue supportive measures as noted above. Continue tube feeding as tolerated. TIME: 31 minutes of critical care time, independent of procedures, was spent addressing the patient's acute respiratory failure with hypoxemia and hypercapnia, acute decompensated congestive heart failure, acute on chronic kidney disease, review of all data and collaboration with the care team. Subjective Subjective The patient was seen and examined at the bedside this morning. Events from the last 24 hours have been reviewed. The patient is currently afebrile, hemodynamically stable and maintaining appropriate oxygen saturations on assist- control mode mechanical ventilation with an FiO2 requirement of 25%. The patient, again, continues to fail breathing trials. She is currently scheduled to undergo tracheostomy placement tomorrow. The patient is documented to be overall net -10.8 L for the hospitalization. White blood cell count is normal. Hemoglobin and platelet count are stable. Objective Data Objective Data The patient's most recent lab work, culture data and imaging studies have all been personally reviewed. Surface echocardiogram demonstrated an ejection fraction of 15%. Urine culture was positive for pansensitive E. coli. Blood cultures have not demonstrated any growth to date. Sputum culture has not demonstrated any growth to date. Vital Signs: Vital Signs Temp Pulse Resp BP Pulse Ox O2 Del Method O2 Flow Rate 98.1 F 57 L 14 135/46 H 99 Mechanical Ventilator 95 02/26/25 00:00 02/26/25 07:00 02/26/25 07:00 02/26/25 07:00 02/26/25 07:00 02/26/25 07:00 02/15/25 15:15 FiO2 25 02/26/25 07:00 Oxygen Flow Rate (L/min) 95 Oxygen Delivery Method Mechanical Ventilator Weight: 235 lb 14.314 oz Body Mass Index (BMI) 39.3 Intake & Output: Intake and Output for Last 24 Hours 02/24/25 02/25/25 02/26/25 23:59 23:59 23:59 Intake Total 1213.69 / 1240.59 1355.50 / 1369.40 602.73 / 602.73 Output Total 1425 / 1425 5505 / 5505 800 / 800 Balance -211.31 / -184.41 -4149.50 / -4135.60 -197.27 / -197.27 Lab / Micro Data Attestation: I reviewed the patient's lab results. 02/26/25 06:22 02/26/25 06:22 Labs: Laboratory Results - last 24 hr 02/25/25 11:24: POC Glucose 115 H 02/25/25 18:07: POC Glucose 97 02/25/25 23:17: POC Glucose 77 02/26/25 01:13: POC Glucose 73 L 02/26/25 06:22: WBC 7.4, RBC 3.80 L, Hgb 8.2 L, Hct 27.9 L, MCV 73.4 L, MCH 21.6 L, MCHC 29.4 L, RDW Std Deviation 49.4 H, RDW Coeff of Bulmaro 18.7 H, Plt Count 407, MPV 9.9, Immature Gran % (Auto) 0.400, Neut % (Auto) 72.5 H, Lymph % (Auto) 14.4 L, [place] % (Auto) 9.5, Eos % (Auto) 2.4, Baso % (Auto) 0.8, Absolute Neuts (auto) 5.3, Absolute Lymphs (auto) 1.06, Nucleated RBC % 0, Sodium 136, Potassium 3.4, Chloride 101, Carbon Dioxide 21.6, Anion Gap 13, BUN 52 H, C reatinine 1.35 H, Estim Creat Clear Calc 43.09 L, Est GFR (MDRD) Non-Af 41 L, B UN/Creatinine Ratio 38.2 H, Glucose 75, Calcium 8.8, POC Glucose 59 L 02/26/25 07:06: POC Glucose 130 H Micro: Microbiology 02/05/25 12:15 Blood Culture (Wb) - Left Wrist Blood Culture - Final No growth in 5 days. 02/05/25 12:04 Blood Culture (Wb) - Right Hand Blood Culture - Final No growth in 5 days. 02/08/25 11:15 Sputum, Induced/Lukens Gram Stain - Final 02/08/25 11:15 Sputum, Induced/Lukens Respiratory Culture - Final Mixed normal respiratory dave. No Streptococcus pneumoniae, beta-hemolytic Streptococcus or Staphylococcus aureus isolated. 02/08/25 00:05 Stool Stool Occult Blood (TREVOR) - Final 02/05/25 11:20 Urine Catheter - Catheter Urine Culture - Final Presumptive E. coli 02/05/25 16:50 Nasal Secretion MRSA (PCR) - Final 02/05/25 16:50 Wound - Leg, Left Skin and Soft Tissue MRSA/MSSA (PCR - Final ABG Data ABG results: ABG 02/25/25 02/26/25 17:11 05:44 Specimen Type ART ART Sample Site L Brach L Radial pH 7.50 H 7.48 H Bicarbonate Actual 25.6 25.0 Total CO2 27 26 Base Excess 2 2 O2 Saturation 97 97 O2 % 25.0 25.0 ABG pCO2 32.7 L 33.6 L ABG pO2 82 78 Harvey Test Positive Respiration Rate 14 14 O2 Delivery Device Adult Vent Adult Vent Vent Mode AC AC Tidal Volume 450.0 450.0 POC PEEP 5 Radiography Diagnostic Testing: Radiology Impression KUB X-Ray 02/25/25 08:31 IMPRESSION: Nonspecific bowel gas pattern. Reading Location: [id number] Chest X-Ray 02/26/25 04:15 IMPRESSION: Endotracheal tube remains in good position. Right internal jugular double-lumen central catheter remains in good position. Mild increase in bilateral pleural effusions. Mild increase in passive atelectatic airspace disease of the lower lobes. Mild increase in central pulmonary venous congestion. Enlarged cardiac silhouette. Reading Location: [place] [address] Rhythm Strip Rhythm Strip: Sinus Rhythm Rate: 104 Physical Exam Const alert and no apparent distress Constitutional Narrative: Remains intubated and mechanically ventilated. General Appearance: patient mechanically ventilated HEENT normocephalic and head/scalp atraumatic Mouth: endotracheal tube in place and OG tube in place Eyes PERRL, EOMs intact bilaterally and conjunctivae normal Neck supple General: trachea midline Chest inspection of chest normal Resp Auscultation: diminished lung sounds; Negative for rales, rhonchi or wheezes Cardio regular rate and regular rhythm GI normal to inspection, nondistended, normoactive bowel sounds GI Narrative: PEG tube in place. Extremity General Extremity: edema; Negative for clubbing Skin Skin Narrative: Wrapped extremities. Neuro Neuro Narrative: Alert and able to follow simple commands. Charges/Coding Procedures Hospitalists Procedures: [id number] Critical Care 1st Hr
--- NOTE | 2025-02-26 07:43 | NURSING ---
Unit phone ringing while giving bedside report. Surgery RN calling to floor to 'receive report' on patient who is scheduled to be going down for trach this AM. This nurse stated there was never communication made to nursing staff this weekend about plan for surgery this morning. Only note on patient's chart is consultation note, there was never a planned date or time given. This nurse stated we have not obtained consent for surgery yet either. Patient has been receiving tube feeds throughout the night. Surgery RN stated she was going to call back to floor and let us know what the plan was since tube feeding will delay planned surgery.
[2025-02-26] MEDS: dexMEDEtomidine 1,000 MCG in 0.9% Normal Saline (250mL Bag) 240 ML 26.8 MCG CONT INF ×2 (09:20→18:25)
[2025-02-26] MEDS: Chlorhexidine 15 ML PO ×2 (09:21→21:38)
[2025-02-26] MEDS: CHLORHEXIDINE GLUC 2% CLOTH 1 EACH TOWELETTE TOPICAL ×2 (09:21→23:10)
[2025-02-26] MEDS: Polyethylene Glycol 3350 17 GM PACKET PO ×2 (10:18→21:39)
[2025-02-26] MEDS: Senna/Docusate Sodium 1 Tablet 2 TABLET PO ×2 (10:18→21:37)
[2025-02-26] MEDS: FLUoxetine 10 MG Capsule PO (10:18)
[2025-02-26] MEDS: Isosorbide DN 10 MG Tablet 5 MG PO ×2 (10:18→21:37)
[2025-02-26] MEDS: Furosemide 100 MG/10 ML Vial 60 MG IV ×2 (10:19→18:21)
--- NOTE | 2025-02-26 10:22 | PN_ITS ---
Subjective Subjective Patient seen and examined. She remains intubated and sedated. RASS score is 0. She is awaiting trach insertion. Unable to do comprehensive review of systems due to her being intubated. Objective Data Objective Data Vital Signs: Vital Signs Temp Pulse Resp BP Pulse Ox O2 Del Method O2 Flow Rate 98.0 F 58 L 13 151/47 H 100 Mechanical Ventilator 95 02/26/25 08:00 02/26/25 08:00 02/26/25 08:00 02/26/25 08:00 02/26/25 08:00 02/26/25 08:00 02/15/25 15:15 FiO2 25 02/26/25 08:00 Oxygen Flow Rate (L/min) 95 Oxygen Delivery Method Mechanical Ventilator Weight: 235 lb 14.314 oz Body Mass Index (BMI) 39.3 Intake & Output: Intake and Output for Last 24 Hours 02/24/25 02/25/25 02/26/25 23:59 23:59 23:59 Intake Total 1213.69 / 1240.59 1355.50 / 1369.40 650.83 / 650.83 Output Total 1425 / 1425 5505 / 5505 800 / 800 Balance -211.31 / -184.41 -4149.50 / -4135.60 -149.17 / -149.17 Lab / Micro Data 02/26/25 06:22 02/26/25 06:22 Labs: Laboratory Results - last 24 hr 02/25/25 11:24: POC Glucose 115 H 02/25/25 18:07: POC Glucose 97 02/25/25 23:17: POC Glucose 77 02/26/25 01:13: POC Glucose 73 L 02/26/25 06:22: WBC 7.4, RBC 3.80 L, Hgb 8.2 L, Hct 27.9 L, MCV 73.4 L, MCH 21.6 L, MCHC 29.4 L, RDW Std Deviation 49.4 H, RDW Coeff of Bulmaro 18.7 H, Plt Count 407, MPV 9.9, Immature Gran % (Auto) 0.400, Neut % (Auto) 72.5 H, Lymph % (Auto) 14.4 L, [place] % (Auto) 9.5, Eos % (Auto) 2.4, Baso % (Auto) 0.8, Absolute Neuts (auto) 5.3, Absolute Lymphs (auto) 1.06, Nucleated RBC % 0, Sodium 136, Potassium 3.4, Chloride 101, Carbon Dioxide 21.6, Anion Gap 13, BUN 52 H, C reatinine 1.35 H, Estim Creat Clear Calc 43.09 L, Est GFR (MDRD) Non-Af 41 L, B UN/Creatinine Ratio 38.2 H, Glucose 75, Calcium 8.8, POC Glucose 59 L 02/26/25 07:06: POC Glucose 130 H Micro: Microbiology 02/05/25 12:15 Blood Culture (Wb) - Left Wrist Blood Culture - Final No growth in 5 days. 02/05/25 12:04 Blood Culture (Wb) - Right Hand Blood Culture - Final No growth in 5 days. 02/08/25 11:15 Sputum, Induced/Lukens Gram Stain - Final 02/08/25 11:15 Sputum, Induced/Lukens Respiratory Culture - Final Mixed normal respiratory dave. No Streptococcus pneumoniae, beta-hemolytic Streptococcus or Staphylococcus aureus isolated. 02/08/25 00:05 Stool Stool Occult Blood (TREVOR) - Final 02/05/25 11:20 Urine Catheter - Catheter Urine Culture - Final Presumptive E. coli 02/05/25 16:50 Nasal Secretion MRSA (PCR) - Final 02/05/25 16:50 Wound - Leg, Left Skin and Soft Tissue MRSA/MSSA (PCR - Final ABG Data ABG results: ABG 02/25/25 02/26/25 17:11 05:44 Specimen Type ART ART Sample Site L Brach L Radial pH 7.50 H 7.48 H Bicarbonate Actual 25.6 25.0 Total CO2 27 26 Base Excess 2 2 O2 Saturation 97 97 O2 % 25.0 25.0 ABG pCO2 32.7 L 33.6 L ABG pO2 82 78 Harvey Test Positive Respiration Rate 14 14 O2 Delivery Device Adult Vent Adult Vent Vent Mode AC AC Tidal Volume 450.0 450.0 POC PEEP 5 Radiography Diagnostic Testing: Radiology Impression Chest X-Ray 02/26/25 04:15 IMPRESSION: Endotracheal tube remains in good position. Right internal jugular double-lumen central catheter remains in good position. Mild increase in bilateral pleural effusions. Mild increase in passive atelectatic airspace disease of the lower lobes. Mild increase in central pulmonary venous congestion. Enlarged cardiac silhouette. [id number] Rhythm Strip Rhythm Strip: Sinus Rhythm Rate: 104 Physical Exam Const alert Constitutional Narrative: flat affect, cooperative, intubated. HEENT normocephalic and head/scalp atraumatic Eyes PERRL and EOMs intact bilaterally Neck no lymphadenopathy and supple Lymph Lymphatic: no lymphedema noted Resp Resp Narrative: moderately diminished breath sounds bibasally, intubated and sedated. RASS score is 0. Cardio regular rate, regular rhythm, S1 normal heart sound, S2 normal heart sound and no murmurs GI normal to inspection, nondistended, normoactive bowel sounds, soft to palpation and non-tender GI Narrative: obese abdomen, PEG tube in situ Extremity normal capillary refill, no clubbing, cyanosis or edema and no calf tenderness General Extremity: no tenderness to palpation of joints or extremities Skin General Skin Exam: no breakdown Neuro no focal motor deficits and no sensory deficits noted Neuro Narrative: flat affect, RASS score is -4. Motor Exam: general weakness Psych Mood & Affect: flat affect Assessment & Plan Assessment/Plan (1) Respiratory failure: (2) Acute respiratory failure with hypoxia and hypercarbia: (3) Cellulitis of right anterior lower leg: PLAN: Plan #Acute hypoxic and hypercapnic respiratory failure due to acute exacerbation of combined heart failure * Today is Wednesday. Remains on minimal vent settings. * Has failed multiple continuous breathing trials. * Critical care on board. Titrate dopamine to maintain saturation above 90%. Has had PEG tube inserted by GI. Awaiting trach insertion by ENT, which will likely happen today * #Acute on chronic combined heart failure * On IV lasix. Also received metolazone * on carvedilol. * #Elevated troponin * Was thought to be due to demand ischemia and therefore likely type II non- STEMI * She does have a history of CAD s/p stents carvedilol was held due to fluid overload. Also on Imdur. #ELIDA on CKD stage IV * Nephrology on board. Has required dialysis during this admission. Will monitor. * Cr is 1.35 today #Type 2 diabetes mellitus: Insulin sliding scale. Accu-Cheks every 6 hourly. On tube feeds also on Lantus 35 units twice daily #Chronic iron deficiency anemia: Hemoglobin has remained stable. Will monitor. #RLE ulcer and cellulitis: stable. #Histoyr of CVA: on aspirin and high intensity statin #Depression and anxiety: on fluoxetine #Nutrition: PEG tube in situ. On tube feeds. DVT prophylaxis: heparin Charges/Coding Visit Charges Inpatient E&M: 99751 Subs Hosp L2
[2025-02-26] MEDS: Pantoprazole Sodium 40 MG in 0.9% Normal Saline (100mL MB+) 100 ML 330 MG IV (10:34)
--- NOTE | 2025-02-26 10:36 | PCM.PN.REN ---
Subjective Subjective No overnight events. Patient awake. On ventilator support. Objective Data Objective Data Vital Signs: Vital Signs Temp Pulse Resp BP Pulse Ox O2 Del Method O2 Flow Rate 98.0 F 56 L 14 151/47 H 100 Mechanical Ventilator 95 02/26/25 08:00 02/26/25 09:21 02/26/25 09:21 02/26/25 08:00 02/26/25 09:21 02/26/25 08:00 02/15/25 15:15 FiO2 02/26/25 09:21 Oxygen Flow Rate (L/min) 95 Oxygen Delivery Method Mechanical Ventilator Weight: 107 kg Body Mass Index (BMI) 39.3 Intake & Output: Intake and Output for Last 24 Hours 02/24/25 02/25/25 02/26/25 23:59 23:59 23:59 Intake Total 1213.69 / 1240.59 1355.50 / 1369.40 650.83 / 650.83 Output Total 1425 / 1425 5505 / 5505 800 / 800 Balance -211.31 / -184.41 -4149.50 / -4135.60 -149.17 / -149.17 Lab / Micro Data 02/26/25 06:22 02/26/25 06:22 Labs: Laboratory Results - last 24 hr 02/25/25 11:24: POC Glucose 115 H 02/25/25 18:07: POC Glucose 97 02/25/25 23:17: POC Glucose 77 02/26/25 01:13: POC Glucose 73 L 02/26/25 06:22: WBC 7.4, RBC 3.80 L, Hgb 8.2 L, Hct 27.9 L, MCV 73.4 L, MCH 21.6 L, MCHC 29.4 L, RDW Std Deviation 49.4 H, RDW Coeff of Bulmaro 18.7 H, Plt Count 407, MPV 9.9, Immature Gran % (Auto) 0.400, Neut % (Auto) 72.5 H, Lymph % (Auto) 14.4 L, [place] % (Auto) 9.5, Eos % (Auto) 2.4, Baso % (Auto) 0.8, Absolute Neuts (auto) 5.3, Absolute Lymphs (auto) 1.06, Nucleated RBC % 0, Sodium 136, Potassium 3.4, Chloride 101, Carbon Dioxide 21.6, Anion Gap 13, BUN 52 H, Creatinine 1.35 H, Estim Creat Clear Calc 43.09 L, Est GFR (MDRD) Non-Af 41 L, BUN/Creatinine Ratio 38.2 H, Glucose 75, Calcium 8.8, POC Glucose 59 L 02/26/25 07:06: POC Glucose 130 H Micro: Microbiology 02/05/25 12:15 Blood Culture (Wb) - Left Wrist Blood Culture - Final No growth in 5 days. 02/05/25 12:04 Blood Culture (Wb) - Right Hand Blood Culture - Final No growth in 5 days. 02/08/25 11:15 Sputum, Induced/Lukens Gram Stain - Final 02/08/25 11:15 Sputum, Induced/Lukens Respiratory Culture - Final Mixed normal respiratory dave. No Streptococcus pneumoniae, beta-hemolytic Streptococcus or Staphylococcus aureus isolated. 02/08/25 00:05 Stool Stool Occult Blood (TREVOR) - Final 02/05/25 11:20 Urine Catheter - Catheter Urine Culture - Final Presumptive E. coli 02/05/25 16:50 Nasal Secretion MRSA (PCR) - Final 02/05/25 16:50 Wound - Leg, Left Skin and Soft Tissue MRSA/MSSA (PCR - Final ABG Data ABG results: ABG 02/25/25 02/26/25 17:11 05:44 Specimen Type ART ART Sample Site L Brach L Radial pH 7.50 H 7.48 H Bicarbonate Actual 25.6 25.0 Total CO2 27 26 Base Excess 2 2 O2 Saturation 97 97 O2 % 25.0 25.0 ABG pCO2 32.7 L 33.6 L ABG pO2 82 78 Harvey Test Positive Respiration Rate 14 14 O2 Delivery Device Adult Vent Adult Vent Vent Mode AC AC Tidal Volume 450.0 450.0 POC PEEP 5 Radiography Diagnostic Testing: Radiology Impression Chest X-Ray 02/26/25 04:15 IMPRESSION: Endotracheal tube remains in good position. Right internal jugular double-lumen central catheter remains in good position. Mild increase in bilateral pleural effusions. Mild increase in passive atelectatic airspace disease of the lower lobes. Mild increase in central pulmonary venous congestion. Enlarged cardiac silhouette. Reading Location: [place] [id number] Rhythm Strip Rhythm Strip: Sinus Rhythm Rate: 104 Physical Exam Narrative On ventilator support s1s2 no murmurs Lungs sound clear anteriorly abdomen soft Edema bilateral legs morillo + clear yellow urine in bag tunneled HD catheter dressing C/D/I Assessment & Plan Assessment/Plan (1) ELIDA (acute kidney injury): (2) Chronic kidney disease (CKD): QUALIFIERS: Chronic kidney disease stage: stage 4 (GFR 15-29) Qualified Code(s): N18.4 - Chronic kidney disease, stage 4 (severe) PLAN: Plan Impression/Plan: Patient is a 74-year-old female with past history of type 2 diabetes mellitus, hypertension, CAD, ischemic cardiomyopathy with HFrEF (EF 15%), pulmonary hypertension, stroke, and hyperlipidemia. Patient presents to the hospital on 02/05/2025 with 1 week history of progressively worsening dyspnea and lower extremity edema. Patient was admitted to the hospital for treatment of acute hypoxic respiratory failure requiring NIV. Nephrology is following for ELIDA on CKD. -Hypervolemia acute kidney injury superimposed on CKD stage IV. Baseline SCr 1.80 to 2.00 mg/dL prior to this admission. Suspect ELIDA is secondary to cardiorenal syndrome, initially patient did not respond well to IV diuresis and therefore was started on HD via tunneled HD catheter. Started dialysis 02/14/2025. Last HD 02/20. plan is for trach tomorrow, patient has PEG. BUN and creatinine have been improving without hemodialysis and/or ultrafiltration, she is on Lasix 60 mg IV twice daily. Urine output 1.8 L yesterday. Since there are no plans for extubation, there is no need for aggressive volume removal in dialysis. Her creatinine is close to baseline now, SCr 1.35mg/dL today. Potassium and bicarb normal. For now we will continue with Lasix and continue to hold dialysis. Per cumulative I&O she is net -10 L, weight is down at least 7 kg (from admission weight). Assessment and plan reviewed with Dr. Moss.
[2025-02-26 12:16] LABS: Bedside Glucose 92 mg/dL (74-106)
--- NOTE | 2025-02-26 15:19 | CASEMGMT ---
Addendum entered by Na Luna 02/26/25 15:36: Noted that ENT was consulted 02/17. Per ICU rounds, trach placement was scheduled for this morning. However, there was a miscommunication between ICU staff and the surgery team as ICU staff was unaware of the scheduled trach placement procedure. Avoidable day has been tracked via [employer]. Original Note: Updated clinicals sent to [facility] via [facility] at this time. Per chart review, trach placement is tentatively scheduled for tomorrow. LTACH notified. CM to follow.
[2025-02-26] MEDS: Atorvastatin Calcium 40 MG Tablet PO (21:38)
[2025-02-26 23:25] LABS: Bedside Glucose 94 mg/dL (74-106)
[2025-02-26 23:25] LABS: Bedside Glucose 103 mg/dL (74-106)
[2025-02-27] VITALS (35 sets, daily range): BP systolic 125–178; BP diastolic 38–98; PULSE 55–99; RESP 14–24; TEMP 36.4–37.3; O2SAT 97–100; BMI 38.8
[2025-02-27] MEDS: dexMEDEtomidine 1,000 MCG in 0.9% Normal Saline (250mL Bag) 240 ML 26.8 MCG CONT INF (04:00)
[2025-02-27 04:57] LABS: Absolute Lymphocyte Count 1.18 X10^3/uL (0.83-4.51); Absolute Neutrophil Count 4.8 X10^3/uL (2.0-7.7); Basophil# 0.07 X10^3/uL; Eosinophil# 0.17 X10^3/uL; Eosinophils% 2.5 % (0-5); Hemoglobin 8.6 g/dL (12.0-15.0); Lymphocyte # 1.18 X10^3/ul (0.83-4.51); Lymphocyte % 17.2 % (19-41); Mean Corp Hgb Conc 29.7 g/dL (32-36); Mean Corpuscular Hgb 21.7 pg (27.0-32.0); Mean Corpuscular Volume 73.2 fL (81-99); Mean Platelet Vol. 9.6 fl (6.2-12.0); Monocyte# 0.57 X10^3/uL; Monocyte% 8.3 % (0-10); NRBC Flagged by Analyzer 0 % (0-5); Neutrophil # 4.83 X10^3/uL (2.7-7.7); Neutrophil % 70.6 % (47-70); Platelet Count 428 K/mm3 (150-450); RBC Distribution Width CV 18.7 % (11.6-14.6); RBC Distribution Width SD 49.3 fl (35.1-43.9); Red Blood Count 3.96 M/mm3 (4.2-5.4); White Blood Count 6.9 K/mm3 (4.4-11.0)
[2025-02-27] MEDS: Menthol/Lanolin/Calamine/Znox 113 GM Tube 1 APPLIC TOPICAL ×3 (05:17→21:52)
[2025-02-27 05:18] LABS: Anion Gap 17 (5-15); BUN 45 mg/dL (4-19); BUN/Creat Ratio 33.3 RATIO (10-20); Calcium,Total 9.2 mg/dL (7.6-11.0); Carbon Dioxide 20.1 mmol/L (21.0-32.0); Chloride 101 mmol/L (98-108); Creatinine, Serum 1.36 mg/dL (0.70-1.20); EST Glomerular Filtration Rate 40 (>60); Estimated Creatinine Clearance 42.51 ml/min (50-250); Glucose 106 mg/dL (70-99); Potassium 3.5 mmol/L (3.3-5.1); Sodium Level 137 mmol/L (133-145)
[2025-02-27] MEDS: 0.9% Saline Lock 10 ML Syringe IV (05:18)
[2025-02-27 05:39] LABS: Bedside Glucose 86 mg/dL (74-106)
[2025-02-27 05:39] LABS: Bedside Glucose 89 mg/dL (74-106)
[2025-02-27] MEDS: FLUoxetine 10 MG Capsule PO (08:10)
[2025-02-27] MEDS: Isosorbide DN 10 MG Tablet 5 MG PO ×2 (08:10→21:48)
[2025-02-27] MEDS: Chlorhexidine 15 ML PO ×2 (08:10→21:52)
[2025-02-27] MEDS: Carvedilol 6.25 MG Tablet PO ×2 (08:10→17:37)
[2025-02-27] MEDS: Furosemide 100 MG/10 ML Vial 60 MG IV ×2 (08:11→17:36)
[2025-02-27] MEDS: Pantoprazole Sodium 40 MG in 0.9% Normal Saline (100mL MB+) 100 ML 330 MG IV (08:14)
--- NOTE | 2025-02-27 08:17 | PCM.PN.INT ---
Assessment & Plan Assessment/Plan (1) Acute on chronic combined systolic (congestive) and diastolic (congestive) heart failure: (2) Urinary tract infection: (3) Acute respiratory failure with hypoxia and hypercarbia: (4) Chronic kidney disease (CKD): QUALIFIERS: Chronic kidney disease stage: stage 4 (GFR 15-29) Qualified Code(s): N18.4 - Chronic kidney disease, stage 4 (severe) PLAN: Plan RECOMMENDATIONS: 1. Continue assist-control mode of mechanical ventilation. Wean FiO2 and PEEP as tolerated. 2. Continue daily attempts at spontaneous breathing trials. 3. Proceed with tracheostomy given failure to wean from ventilator. 4. Ongoing diuresis along with goal-directed medical therapy. 5. Resume tube feeding after tracheostomy placement. 6. Continue appropriate ICU prophylaxis. IMPRESSIONS: 1. Acute respiratory failure with hypoxemia and hypercapnia secondary to decompensated heart failure The patient was initially admitted to the hospital with acute decompensated congestive heart failure and UTI, but worsened from a respiratory perspective on the morning of February 08, with increasing oxygen requirement and lethargy. Subsequent ABG demonstrated acute CO2 retention, which was refractory to the use of noninvasive positive pressure ventilatory support. Therefore, the patient was intubated. The patient appears to have stabilized from a respiratory perspective following intubation. She will be continued on assist-control mode of mechanical ventilation, with a goal to wean FiO2 and PEEP as tolerated. Unfortunately, despite continued supportive care, the patient continues to fail attempts at spontaneous breathing trials. She is significantly debilitated and will require tracheostomy placement, which is tentatively scheduled for later today. The patient is status post PEG tube placement on 02/21. 2. Acute on chronic combined systolic and diastolic heart failure Continue medical management per cardiology recommendations. 3. Acute on chronic kidney disease Suspect that this is related to underlying cardiorenal syndrome. Continue medical management per nephrology recommendations. 4. Morbid obesity/anemia/diabetes mellitus/history of CVA/depression/anxiety Complicates care, management, recovery and prognosis. Continue supportive measures as noted above. Tube feeding can be resumed after tracheostomy placement is complete. TIME: 32 minutes of critical care time, independent of procedures, was spent addressing the patient's acute respiratory failure with hypoxemia and hypercapnia, acute decompensated congestive heart failure, acute on chronic kidney disease, review of all data and collaboration with the care team. Subjective Subjective The patient was seen and examined at the bedside this morning. Events from the last 24 hours have been reviewed. The patient is currently afebrile, hemodynamically stable and maintaining appropriate oxygen saturations on assist-control mode mechanical ventilation with an FiO2 requirement of 25%. The patient is documented to be overall net -11 L for the hospitalization. White blood cell count is normal. Creatinine is stable at 1.36. There are tentative plans to proceed with tracheostomy later this afternoon. Objective Data Objective Data The patient's most recent lab work, culture data and imaging studies have all been personally reviewed. Surface echocardiogram demonstrated an ejection fraction of 15%. Urine culture was positive for pansensitive E. coli. Blood cultures have not demonstrated any growth to date. Sputum culture has not demonstrated any growth to date. Vital Signs: Vital Signs Temp Pulse Resp BP Pulse Ox O2 Del Method O2 Flow Rate 97.6 F L 59 L 14 155/53 H 98 Mechanical Ventilator 95 02/27/25 03:00 02/27/25 07:19 02/27/25 07:19 02/27/25 06:00 02/27/25 07:19 02/27/25 06:00 02/15/25 15:15 FiO2 25 02/27/25 07:19 Oxygen Flow Rate (L/min) 95 Oxygen Delivery Method Mechanical Ventilator Weight: 233 lb 3.985 oz Body Mass Index (BMI) 38.8 Intake & Output: Intake and Output for Last 24 Hours 02/25/25 02/26/25 02/27/25 23:59 23:59 23:59 Intake Total 1355.50 / 1369.40 1326.43 / 1353.23 206.97 / 206.97 Output Total 5505 / 5505 1200 / 1500 700 / 700 Balance -4149.50 / -4135.60 126.43 / -146.77 -493.03 / -493.03 Lab / Micro Data Attestation: I reviewed the patient's lab results. 02/27/25 04:49 02/27/25 04:49 Labs: Laboratory Results - last 24 hr 02/26/25 11:55: POC Glucose 92 02/26/25 18:20: POC Glucose 103 02/26/25 23:06: POC Glucose 94 02/27/25 04:15: POC Glucose 89 02/27/25 04:49: WBC 6.9, RBC 3.96 L, Hgb 8.6 L, Hct 29.0 L, MCV 73.2 L, MCH 21.7 L, MCHC 29.7 L, RDW Std Deviation 49.3 H, RDW Coeff of Bulmaro 18.7 H, Plt Count 428, MPV 9.6, Immature Gran % (Auto) 0.400, Neut % (Auto) 70.6 H, Lymph % (Auto) 17.2 L, [place] % (Auto) 8.3, Eos % (Auto) 2.5, Baso % (Auto) 1.0, Absolute Neuts (auto) 4.8, Absolute Lymphs (auto) 1.18, Nucleated RBC % 0, Sodium 137, Potassium 3.5, Chloride 101, Carbon Dioxide 20.1 L, Anion Gap 17 H, BUN 45 H, Creatinine 1.36 H, Estim Creat Clear Calc 42.51 L, Est GFR (MDRD) Non-Af 40 L, BUN/Creatinine Ratio 33.3 H, Glucose 106 H, Calcium 9.2 02/27/25 05:15: POC Glucose 86 Micro: Microbiology 02/05/25 12:15 Blood Culture (Wb) - Left Wrist Blood Culture - Final No growth in 5 days. 02/05/25 12:04 Blood Culture (Wb) - Right Hand Blood Culture - Final No growth in 5 days. 02/08/25 11:15 Sputum, Induced/Lukens Gram Stain - Final 02/08/25 11:15 Sputum, Induced/Lukens Respiratory Culture - Final Mixed normal respiratory dave. No Streptococcus pneumoniae, beta-hemolytic Streptococcus or Staphylococcus aureus isolated. 02/08/25 00:05 Stool Stool Occult Blood (TREVOR) - Final 02/05/25 11:20 Urine Catheter - Catheter Urine Culture - Final Presumptive E. coli 02/05/25 16:50 Nasal Secretion MRSA (PCR) - Final 02/05/25 16:50 Wound - Leg, Left Skin and Soft Tissue MRSA/MSSA (PCR - Final ABG Data ABG results: ABG 02/25/25 02/26/25 17:11 05:44 Specimen Type ART ART Sample Site L Brach L Radial pH 7.50 H 7.48 H Bicarbonate Actual 25.6 25.0 Total CO2 27 26 Base Excess 2 2 O2 Saturation 97 97 O2 % 25.0 25.0 ABG pCO2 32.7 L 33.6 L ABG pO2 82 78 Harvey Test Positive Respiration Rate 14 14 O2 Delivery Device Adult Vent Adult Vent Vent Mode AC AC Tidal Volume 450.0 450.0 POC PEEP 5 Radiography Diagnostic Testing: Radiology Impression KUB X-Ray 02/25/25 08:31 IMPRESSION: Nonspecific bowel gas pattern. Reading Location: [id number] Chest X-Ray 02/26/25 04:15 IMPRESSION: Endotracheal tube remains in good position. Right internal jugular double-lumen central catheter remains in good position. Mild increase in bilateral pleural effusions. Mild increase in passive atelectatic airspace disease of the lower lobes. Mild increase in central pulmonary venous congestion. Enlarged cardiac silhouette. Reading Location: [place] [id number] Rhythm Strip Rhythm Strip: Sinus Rhythm Rate: 104 Physical Exam Const alert and no apparent distress Constitutional Narrative: Remains intubated and mechanically ventilated. General Appearance: patient mechanically ventilated HEENT normocephalic and head/scalp atraumatic Mouth: endotracheal tube in place Eyes PERRL, EOMs intact bilaterally and conjunctivae normal Neck supple General: trachea midline Chest inspection of chest normal Resp Auscultation: diminished lung sounds; Negative for rales, rhonchi or wheezes Cardio regular rate and regular rhythm GI normal to inspection, nondistended, normoactive bowel sounds GI Narrative: PEG tube in place. Extremity General Extremity: edema; Negative for clubbing Skin Skin Narrative: Wrapped extremities. Neuro Neuro Narrative: Alert and able to follow simple commands. Charges/Coding Procedures Hospitalists Procedures: [id number] Critical Care 1st Hr
--- NOTE | 2025-02-27 11:36 | PN.RENAL_ITS ---
Subjective Subjective Awake, alert, no overnight events. Plan for trach today. Objective Data Objective Data Vital Signs: Vital Signs Temp Pulse Resp BP Pulse Ox O2 Del Method O2 Flow Rate 99.1 F 57 L 14 152/64 H 99 Mechanical Ventilator 95 02/27/25 09:00 02/27/25 11:11 02/27/25 11:11 02/27/25 11:00 02/27/25 11:11 02/27/25 11:04 02/15/25 15:15 FiO2 25 02/27/25 11:11 Oxygen Flow Rate (L/min) 95 Oxygen Delivery Method Mechanical Ventilator Weight: 105.8 kg Body Mass Index (BMI) 38.8 Intake & Output: Intake and Output for Last 24 Hours 02/25/25 02/26/25 02/27/25 23:59 23:59 23:59 Intake Total 1355.50 / 1369.40 1326.43 / 1353.23 369.97 / 369.97 Output Total 5505 / 5505 1200 / 1500 700 / 700 Balance -4149.50 / -4135.60 126.43 / -146.77 -330.03 / -330.03 Lab / Micro Data 02/27/25 04:49 02/27/25 04:49 Labs: Laboratory Results - last 24 hr 02/26/25 11:55: POC Glucose 92 02/26/25 18:20: POC Glucose 103 02/26/25 23:06: POC Glucose 94 02/27/25 04:15: POC Glucose 89 02/27/25 04:49: WBC 6.9, RBC 3.96 L, Hgb 8.6 L, Hct 29.0 L, MCV 73.2 L, MCH 21.7 L, MCHC 29.7 L, RDW Std Deviation 49.3 H, RDW Coeff of Bulmaro 18.7 H, Plt Count 428, MPV 9.6, Immature Gran % (Auto) 0.400, Neut % (Auto) 70.6 H, Lymph % (Auto) 17.2 L, [place] % (Auto) 8.3, Eos % (Auto) 2.5, Baso % (Auto) 1.0, Absolute Neuts (auto) 4.8, Absolute Lymphs (auto) 1.18, Nucleated RBC % 0, Sodium 137, Potassium 3.5, Chloride 101, Carbon Dioxide 20.1 L, Anion Gap 17 H, BUN 45 H, C reatinine 1.36 H, Estim Creat Clear Calc 42.51 L, Est GFR (MDRD) Non-Af 40 L, B UN/Creatinine Ratio 33.3 H, Glucose 106 H, Calcium 9.2 02/27/25 05:15: POC Glucose 86 Micro: Microbiology 02/05/25 12:15 Blood Culture (Wb) - Left Wrist Blood Culture - Final No growth in 5 days. 02/05/25 12:04 Blood Culture (Wb) - Right Hand Blood Culture - Final No growth in 5 days. 02/08/25 11:15 Sputum, Induced/Lukens Gram Stain - Final 02/08/25 11:15 Sputum, Induced/Lukens Respiratory Culture - Final Mixed normal respiratory dave. No Streptococcus pneumoniae, beta-hemolytic Streptococcus or Staphylococcus aureus isolated. 02/08/25 00:05 Stool Stool Occult Blood (TREVOR) - Final 02/05/25 11:20 Urine Catheter - Catheter Urine Culture - Final Presumptive E. coli 02/05/25 16:50 Nasal Secretion MRSA (PCR) - Final 02/05/25 16:50 Wound - Leg, Left Skin and Soft Tissue MRSA/MSSA (PCR - Final Rhythm Strip Rhythm Strip: Sinus Rhythm Rate: 104 Physical Exam Narrative On ventilator support s1s2 no murmurs Lungs sound clear anteriorly abdomen soft Edema bilateral legs, improved morillo + clear yellow urine in bag tunneled HD catheter dressing C/D/I Assessment & Plan Assessment/Plan (1) ELIDA (acute kidney injury): (2) Chronic kidney disease (CKD): QUALIFIERS: Chronic kidney disease stage: stage 4 (GFR 15-29) Q ualified Code(s): N18.4 - Chronic kidney disease, stage 4 (severe) PLAN: Plan Impression/Plan: Patient is a 74-year-old female with past history of type 2 diabetes mellitus, hypertension, CAD, ischemic cardiomyopathy with HFrEF (EF 15%), pulmonary hypertension, stroke, and hyperlipidemia. Patient presents to the hospital on 02/05/2025 with 1 week history of progressively worsening dyspnea and lower extremity edema. Patient was admitted to the hospital for treatment of acute hypoxic respiratory failure requiring NIV. Nephrology is following for ELIDA on CKD. -Hypervolemia acute kidney injury superimposed on CKD stage IV. Baseline SCr 1.80 to 2.00 mg/dL prior to this admission. Suspect ELIDA is secondary to cardiorenal syndrome, initially patient did not respond well to IV diuresis and therefore was started on HD via tunneled HD catheter. Started dialysis 02/14/2025. Last HD 02/20. plan is for trach tomorrow, patient has PEG. BUN and creatinine have been improving without hemodialysis and/or ultrafiltration, she is on Lasix 60 mg IV twice daily. Urine output 1.8 L yesterday. Since there are no plans for extubation, there is no need for aggressive volume removal in dialysis. Her creatinine is close to baseline now, SCr 1.36mg/dL today. For now we will continue with Lasix and continue to hold dialysis. Per cumulative I&O she is net -11 L, weight is down around 9 kg (from admission weight). Assessment and plan reviewed with Dr. Moss.
[2025-02-27 12:15] LABS: Bedside Glucose 88 mg/dL (74-106)
[2025-02-27] MEDS: hydrALAZINE 10 MG Tablet PO ×2 (12:42→21:49)
[2025-02-27] MEDS: guaiFENesin 10 ML UDC (200MG/10ML) NG ×2 (12:43→21:49)
--- NOTE | 2025-02-27 13:40 | PN_ITS ---
Subjective Subjective Patient seen and examined. SHe remains on the ventilator. She shakes her head or nods in response to questions. She had no active complaints. She is for tracheostomy today by ENT. Objective Data Objective Data Vital Signs: Vital Signs Temp Pulse Resp BP Pulse Ox O2 Del Method O2 Flow Rate 99.1 F 59 L 16 151/57 H 98 Mechanical Ventilator 95 02/27/25 09:00 02/27/25 13:00 02/27/25 13:00 02/27/25 13:00 02/27/25 13:00 02/27/25 13:00 02/15/25 15:15 FiO2 25 02/27/25 13:00 Oxygen Flow Rate (L/min) 95 Oxygen Delivery Method Mechanical Ventilator Weight: 233 lb 3.985 oz Body Mass Index (BMI) 38.8 Intake & Output: Intake and Output for Last 24 Hours 02/25/25 02/26/25 02/27/25 23:59 23:59 23:59 Intake Total 1355.50 / 1369.40 1326.43 / 1353.23 475.97 / 475.97 Output Total 5505 / 5505 1200 / 1500 1600 / 1600 Balance -4149.50 / -4135.60 126.43 / -146.77 -1124.03 / -1124.03 Lab / Micro Data 02/27/25 04:49 02/27/25 04:49 Labs: Laboratory Results - last 24 hr 02/26/25 18:20: POC Glucose 103 02/26/25 23:06: POC Glucose 94 02/27/25 04:15: POC Glucose 89 02/27/25 04:49: WBC 6.9, RBC 3.96 L, Hgb 8.6 L, Hct 29.0 L, MCV 73.2 L, MCH 21.7 L, MCHC 29.7 L, RDW Std Deviation 49.3 H, RDW Coeff of Bulmaro 18.7 H, Plt Count 428, MPV 9.6, Immature Gran % (Auto) 0.400, Neut % (Auto) 70.6 H, Lymph % (Auto) 17.2 L, [place] % (Auto) 8.3, Eos % (Auto) 2.5, Baso % (Auto) 1.0, Absolute Neuts (auto) 4.8, Absolute Lymphs (auto) 1.18, Nucleated RBC % 0, Sodium 137, Potassium 3.5, Chloride 101, Carbon Dioxide 20.1 L, Anion Gap 17 H, BUN 45 H, C reatinine 1.36 H, Estim Creat Clear Calc 42.51 L, Est GFR (MDRD) Non-Af 40 L, B UN/Creatinine Ratio 33.3 H, Glucose 106 H, Calcium 9.2 02/27/25 05:15: POC Glucose 86 02/27/25 11:34: POC Glucose 88 Micro: Microbiology 02/05/25 12:15 Blood Culture (Wb) - Left Wrist Blood Culture - Final No growth in 5 days. 02/05/25 12:04 Blood Culture (Wb) - Right Hand Blood Culture - Final No growth in 5 days. 02/08/25 11:15 Sputum, Induced/Lukens Gram Stain - Final 02/08/25 11:15 Sputum, Induced/Lukens Respiratory Culture - Final Mixed normal respiratory dave. No Streptococcus pneumoniae, beta-hemolytic Streptococcus or Staphylococcus aureus isolated. 02/08/25 00:05 Stool Stool Occult Blood (TREVOR) - Final 02/05/25 11:20 Urine Catheter - Catheter Urine Culture - Final Presumptive E. coli 02/05/25 16:50 Nasal Secretion MRSA (PCR) - Final 02/05/25 16:50 Wound - Leg, Left Skin and Soft Tissue MRSA/MSSA (PCR - Final Rhythm Strip Rhythm Strip: Sinus Rhythm Rate: 104 Physical Exam Const alert and no apparent distress Constitutional Narrative: flat affect, cooperative, intubated. General Appearance: cooperative, intubated and patient mechanically ventilated HEENT normocephalic and head/scalp atraumatic Eyes PERRL, EOMs intact bilaterally and conjunctivae normal Neck no lymphadenopathy, supple and no JVD Lymph Lymphatic: no lymphadenopathy noted and no lymphedema noted Resp normal respiratory effort, no retractions and no use of accessory muscles Resp Narrative: moderately diminished breath sounds bibasally, intubated and sedated. RASS score is 0. Auscultation: crackles Cardio regular rate, regular rhythm, S1 normal heart sound, S2 normal heart sound and no murmurs GI normal to inspection, nondistended, normoactive bowel sounds, soft to palpation, non-tender and non-distended GI Narrative: obese abdomen, PEG tube in situ Extremity normal capillary refill, no clubbing, cyanosis or edema and no calf tenderness General Extremity: no tenderness to palpation of joints or extremities Skin no rashes or lesions noted General Skin Exam: no breakdown Neuro CN's II-XII intact bilaterally, no focal motor deficits and no sensory deficits noted Neuro Narrative: flat affect, RASS score is 0. Sensorium / Orientation: sedated on vent Motor Exam: general weakness Psych Psych Narrative: alert, flat affect. RASS score is 0; on precedex drip. Appearance: intubated Mood & Affect: flat affect Assessment & Plan Assessment/Plan (1) Respiratory failure: (2) Acute respiratory failure with hypoxia and hypercarbia: (3) Cellulitis of right anterior lower leg: PLAN: Plan #Acute hypoxic and hypercapnic respiratory failure due to acute exacerbation of combined heart failure * Today is vent day 18. Remains on minimal vent settings. * Has failed multiple continuous breathing trials. * Critical care on board. Titrate dopamine to maintain saturation above 90%. * Has had PEG tube inserted by GI. Awaiting trach insertion by ENT today. * #Acute on chronic combined heart failure * On IV lasix. Also received metolazone * on carvedilol. * 2D echo as below. Cardiology on board. * #Elevated troponin * Was thought to be due to demand ischemia and therefore likely type II non- STEMI * She does have a history of CAD s/p stents carvedilol was held due to fluid overload. Also on Imdur. * 2D echo showed EF of 15% with LV akinesia and regnial wall motion abnormalities. * cardiology on board. #ELIDA on CKD stage IV * Nephrology on board. Has required dialysis during this admission. Will monitor. * Cr is 1.36 today #Type 2 diabetes mellitus: Insulin sliding scale. Accu-Cheks every 6 hourly. On tube feeds also on Lantus 35 units twice daily #Chronic iron deficiency anemia: Hemoglobin has remained stable. Will monitor. #RLE ulcer and cellulitis: stable. #Histoyr of CVA: on aspirin and high intensity statin #Depression and anxiety: on fluoxetine #Nutrition: PEG tube in situ. On tube feeds. DVT prophylaxis: heparin Charges/Coding Visit Charges Inpatient E&M: 23107 Subs Hosp L3
[2025-02-27] MEDS: dexMEDEtomidine 1,000 MCG in 0.9% Normal Saline (250mL Bag) 240 ML 26.5 MCG CONT INF ×2 (14:18→20:35)
[2025-02-27] MEDS: Lidocaine 1% /Epi 1:100 (20ml) 20 ML Vial (16:13)
--- NOTE | 2025-02-27 16:42 | PCM.OPRPT ---
Problems Associated Problem List Diagnoses (1) Respiratory failure: Operative Report (Standard) Operative Information Date of Procedure: 02/27/25 Pre-Operative Diagnosis: respiratory failure Post-Operative Diagnosis: respiratory failure Surgery/Procedure Performed: tracheostomy with mervat flap lead tinner: Yes Fish Cutting Machine Operator: Candy Irving Tasks completed by first aid officer: Opening, Closing, Opening & closing, Harvesting grafts, Dissecting tissue, Removing tissue, Implanting device, Altering tissue, Insert Trochanter, Hemostasis: Clamp, Hemostasis: Tie, Hemostasis: Electrocautery, Trocar, Retracting and Other Type of Anesthesia: General RN Documented Start/Stop Times: Operation Date: 02/27/25 16:00 Case Time Anesthesia Start 02/27/25 15:58 Into Room 02/27/25 15:58 Procedure Start 02/27/25 16:19 Procedure Start Time: 04:00 Procedure Stop Time: 04:45 Select all DRAINS/GRAFTS/IMPLANTS that apply: None Estimated Blood Loss: 0 Specimen collected: No Description of surgery: on the day of the procedure, after appropriate informed consent was obtained, the patient was brought to the operating room and placed in supine position on the operating table. she arrived intubated, and was given general anesthesia by the anesthesiologist. a 2cm incision 2cm superior to sternal notch was injected with lidocaine/epinephrine. an incision was made with a 15 blade; a lipectomy was performed with an allis and the bovie. the midline strap muscles were divided along the raphe and retracted laterally with army/navy retractors. the isthmus of the thyroid gland was divided with the bovie. a 15 blade was used to enter the trachea between rings 1 and 2; a mervat flap was created with curved solis scissors. the mervat flap was sutured to the overlying skin. the endotracheal tube was retracted, the trachea was suctioned and a #6 shiley was inserted. end tidal CO2 returned. the trach was secured at 4 points with silk suture as well as with an umbilical tie. she was transferred to the ICU in stable condition. dr candy irving was scrubbed for the entire procedure and was critical in its completion. Surgical Findings: n/a Complications Complications: No
--- NOTE | 2025-02-27 17:13 | PCM.POST.ANE ---
Anesthesia: Postop Eval I Current Vital Signs Temperature: 98 F Pulse Rate: 61 Blood Pressure: 125/38 Respiratory Rate: 23 Pulse Ox: 98 Oxygen Delivery Method: Mechanical Ventilator Fraction of Inspired Oxygen (FIO2): 0.5 Assessment Airway patent: Yes Spontaneous unlabored respirations: No Mental status: Awake and Calm nausea: No Vomiting: No Anesthesia Complication: No Fluid Hydration Crystalloid volume administer (ml): 200 Total IV fluid infused: 200 Progress Note Anesthesia document: Postop Eval 1 completed: Yes
[2025-02-27 18:00] LABS: Bedside Glucose 77 mg/dL (74-106)
[2025-02-27] MEDS: Senna/Docusate Sodium 1 Tablet 2 TABLET PO (21:49)
[2025-02-27] MEDS: Polyethylene Glycol 3350 17 GM PACKET PO (21:49)
[2025-02-27] MEDS: Atorvastatin Calcium 40 MG Tablet PO (21:50)
[2025-02-27 22:51] LABS: Bedside Glucose 92 mg/dL (74-106)
[2025-02-28] VITALS (40 sets, daily range): BP systolic 113–163; BP diastolic 41–95; PULSE 52–104; RESP 14–35; TEMP 36.2–36.7; O2SAT 92–100; BMI 38.4
[2025-02-28] MEDS: hydrALAZINE 10 MG Tablet PO ×3 (05:56→22:47)
[2025-02-28] MEDS: guaiFENesin 10 ML UDC (200MG/10ML) NG ×3 (05:58→22:47)
[2025-02-28] MEDS: Menthol/Lanolin/Calamine/Znox 113 GM Tube 1 APPLIC TOPICAL ×2 (05:58→22:48)
[2025-02-28 06:20] LABS: Bedside Glucose 96 mg/dL (74-106)
[2025-02-28 08:02] LABS: Absolute Lymphocyte Count 0.89 X10^3/uL (0.83-4.51); Absolute Neutrophil Count 6.5 X10^3/uL (2.0-7.7); Basophil% 1.2 % (0-1); Eosinophil# 0.17 X10^3/uL; Hematocrit 30.1 % (37-47); Hemoglobin 8.8 g/dL (12.0-15.0); Lymphocyte # 0.89 X10^3/ul (0.83-4.51); Lymphocyte % 10.5 % (19-41); Mean Corp Hgb Conc 29.2 g/dL (32-36); Mean Corpuscular Hgb 21.8 pg (27.0-32.0); Mean Corpuscular Volume 74.5 fL (81-99); Mean Platelet Vol. 9.6 fl (6.2-12.0); Monocyte# 0.76 X10^3/uL; NRBC Flagged by Analyzer 0 % (0-5); Neutrophil # 6.49 X10^3/uL (2.7-7.7); Neutrophil % 76.8 % (47-70); Platelet Count 399 K/mm3 (150-450); RBC Distribution Width CV 18.8 % (11.6-14.6); RBC Distribution Width SD 50.6 fl (35.1-43.9); Red Blood Count 4.04 M/mm3 (4.2-5.4); White Blood Count 8.5 K/mm3 (4.4-11.0)
[2025-02-28] MEDS: Chlorhexidine 15 ML PO ×2 (08:42→22:49)
[2025-02-28] MEDS: Carvedilol 6.25 MG Tablet PO ×2 (08:42→18:03)
[2025-02-28] MEDS: CHLORHEXIDINE GLUC 2% CLOTH 1 EACH TOWELETTE TOPICAL (08:42)
[2025-02-28 09:02] LABS: Anion Gap 19 (5-15); BUN 44 mg/dL (4-19); BUN/Creat Ratio 27.8 RATIO (10-20); Calcium,Total 8.7 mg/dL (7.6-11.0); Carbon Dioxide 18.2 mmol/L (21.0-32.0); Chloride 101 mmol/L (98-108); Creatinine, Serum 1.57 mg/dL (0.70-1.20); EST Glomerular Filtration Rate 34 (>60); Estimated Creatinine Clearance 36.63 ml/min (50-250); Glucose 91 mg/dL (70-99); Potassium 4.1 mmol/L (3.3-5.1); Sodium Level 139 mmol/L (133-145)
--- NOTE | 2025-02-28 09:06 | WOUNDNOTE ---
wound photo: right foot
--- NOTE | 2025-02-28 10:05 | CASEMGMT ---
Addendum entered by Na Luna 02/28/25 12:44: Maximo from [facility] response states, We would be able to start Precert on Wednesday, then wait for Auth. Unfortunately her insurance won?t look at a Precert for a vent patient until they have those 3 SBT?s. We would be able to accept as soon as Auth is received. I doubt it will come back the same day, but if it does, then we would be able to accept. More likely it will take 48 hours for the Auth to come back. CM to follow. Original Note: Updated progress notes, vent settings, updated inpt med list, and trach report sent to the [facility] in [place]. Per ICU rounds, SBT's with the trach are to be initiated today. This RN CM inquired with the [facility] if we can plan for DC Wednesday, since the pt should have 3 separate SBT's on that date. Awaiting return response. CM to follow.
--- NOTE | 2025-02-28 11:02 | PN_ITS ---
Subjective Subjective Patient seen and examined. She had the tracheostomy yesterday. She remains on the vent via the tracheostomy. She is alert, and had no complaints. Objective Data Objective Data Vital Signs: Vital Signs Temp Pulse Resp BP Pulse Ox O2 Del Method O2 Flow Rate 98.1 F 65 22 H 132/52 H 100 Mechanical Ventilator 95 02/28/25 08:00 02/28/25 08:44 02/28/25 08:44 02/28/25 08:43 02/28/25 08:44 02/28/25 08:00 02/15/25 15:15 FiO2 30 02/28/25 08:44 Oxygen Flow Rate (L/min) 95 Oxygen Delivery Method Mechanical Ventilator Weight: 231 lb 0.711 oz Body Mass Index (BMI) 38.4 Intake & Output: Intake and Output for Last 24 Hours 02/26/25 02/27/25 02/28/25 23:59 23:59 23:59 Intake Total 1326.43 / 1353.23 717.72 / 864.22 335.96 / 335.96 Output Total 1200 / 1500 1950 / 1950 Balance 126.43 / -146.77 -1232.28 / -1085.78 335.96 / 335.96 Lab / Micro Data 02/28/25 07:40 02/28/25 07:40 Labs: Laboratory Results - last 24 hr 02/27/25 11:34: POC Glucose 88 02/27/25 17:35: POC Glucose 77 02/27/25 22:33: POC Glucose 92 02/28/25 05:59: POC Glucose 96 02/28/25 07:40: WBC 8.5, RBC 4.04 L, Hgb 8.8 L, Hct 30.1 L, MCV 74.5 L, MCH 21.8 L, MCHC 29.2 L, RDW Std Deviation 50.6 H, RDW Coeff of Bulmaro 18.8 H, Plt Count 399, MPV 9.6, Immature Gran % (Auto) 0.500, Neut % (Auto) 76.8 H, Lymph % (Auto) 10.5 L, [place] % (Auto) 9.0, Eos % (Auto) 2.0, Baso % (Auto) 1.2 H, Absolute Neuts (auto) 6.5, Absolute Lymphs (auto) 0.89, Nucleated RBC % 0, Sodium 139, Potassium 4.1, Chloride 101, Carbon Dioxide 18.2 L, Anion Gap 19 H, BUN 44 H, C reatinine 1.57 H, Estim Creat Clear Calc 36.63 L, Est GFR (MDRD) Non-Af 34 L, B UN/Creatinine Ratio 27.8 H, Glucose 91, Calcium 8.7 Micro: Microbiology 02/05/25 12:15 Blood Culture (Wb) - Left Wrist Blood Culture - Final No growth in 5 days. 02/05/25 12:04 Blood Culture (Wb) - Right Hand Blood Culture - Final No growth in 5 days. 02/08/25 11:15 Sputum, Induced/Lukens Gram Stain - Final 02/08/25 11:15 Sputum, Induced/Lukens Respiratory Culture - Final Mixed normal respiratory dave. No Streptococcus pneumoniae, beta-hemolytic Streptococcus or Staphylococcus aureus isolated. 02/08/25 00:05 Stool Stool Occult Blood (TREVOR) - Final 02/05/25 11:20 Urine Catheter - Catheter Urine Culture - Final Presumptive E. coli 02/05/25 16:50 Nasal Secretion MRSA (PCR) - Final 02/05/25 16:50 Wound - Leg, Left Skin and Soft Tissue MRSA/MSSA (PCR - Final Rhythm Strip Rhythm Strip: Sinus Rhythm Rate: 104 Physical Exam Const alert Constitutional Narrative: flat affect, cooperative, intubated. General Appearance: cooperative, intubated and patient mechanically ventilated HEENT normocephalic, head/scalp atraumatic, moist oral mucous membranes and oropharynx normal Eyes PERRL, EOMs intact bilaterally and conjunctivae normal Neck no lymphadenopathy, supple and no JVD Lymph Lymphatic: no lymphadenopathy noted and no lymphedema noted Resp Resp Narrative: moderately diminished breath sounds bibasally, intubated and sedated. RASS score is 0. Cardio regular rate, regular rhythm, S1 normal heart sound, S2 normal heart sound and no murmurs GI normal to inspection, nondistended, normoactive bowel sounds, soft to palpation, non-tender and non-distended GI Narrative: obese abdomen, PEG tube in situ Extremity normal capillary refill, no clubbing, cyanosis or edema and no calf tenderness General Extremity: no tenderness to palpation of joints or extremities Skin no rashes or lesions noted General Skin Exam: no breakdown Neuro CN's II-XII intact bilaterally, no focal motor deficits and no sensory deficits noted Neuro Narrative: flat affect, RASS score is 0. Sensorium / Orientation: sedated on vent Motor Exam: general weakness Psych Psych Narrative: alert, flat affect. RASS score is 0; on precedex drip. Appearance: intubated Mood & Affect: flat affect Assessment & Plan Assessment/Plan (1) Respiratory failure: (2) Acute respiratory failure with hypoxia and hypercarbia: (3) Cellulitis of right anterior lower leg: PLAN: Plan #Acute hypoxic and hypercapnic respiratory failure due to acute exacerbation of combined heart failure * . Remains on minimal vent settings. * Has failed multiple continuous breathing trials. * Critical care on board. Titrate dopamine to maintain saturation above 90%. * Has had PEG tube inserted by GI. Had Trach inserted by ENT yesterday. * #Acute on chronic combined heart failure * On IV lasix. Also received metolazone * on carvedilol. * 2D echo as below. Cardiology on board. * #Elevated troponin * Was thought to be due to demand ischemia and therefore likely type II non- STEMI * She does have a history of CAD s/p stents carvedilol was held due to fluid overload. Also on Imdur. * 2D echo showed EF of 15% with LV akinesia and regnial wall motion abnormalities. * cardiology on board. #ELIDA on CKD stage IV * Nephrology on board. * Has required dialysis during this admission. Will monitor. * Cr is 1.57 today #Type 2 diabetes mellitus: * Insulin sliding scale. Accu-Cheks every 6 hourly. * On tube feeds also on Lantus 35 units twice daily #Chronic iron deficiency anemia: Hemoglobin has remained stable. Will monitor. #RLE ulcer and cellulitis: stable. #History of CVA: on aspirin and high intensity statin #Depression and anxiety: on fluoxetine #Nutrition: PEG tube in situ. On tube feeds. DVT prophylaxis: heparin Charges/Coding Visit Charges Inpatient E&M: 24430 Subs Hosp L2
[2025-02-28] MEDS: FLUoxetine 10 MG Capsule PO (11:03)
[2025-02-28] MEDS: Isosorbide DN 10 MG Tablet 5 MG PO ×2 (11:03→22:49)
[2025-02-28] MEDS: Furosemide 100 MG/10 ML Vial 60 MG IV ×2 (11:04→18:03)
[2025-02-28] MEDS: Pantoprazole Sodium 40 MG in 0.9% Normal Saline (100mL MB+) 100 ML 330 MG IV (11:04)
[2025-02-28 11:23] LABS: Bedside Glucose 88 mg/dL (74-106)
--- NOTE | 2025-02-28 12:30 | PCM.PN.TICU ---
Objective Data Objective Data Vital Signs: Vital Signs Last response Temperature 36.7 C 02/28/25 08:00 Temperature Source Temporal 02/28/25 08:00 Pulse Rate 64 02/28/25 11:00 Pulse Strength Normal (2+) 02/28/25 10:00 Respiratory Rate 25 H 02/28/25 11:08 Respiratory Effort Mechanically Ventilated 02/28/25 08:00 Respiratory Depth Normal 02/28/25 08:00 Respiratory Pattern Normal 02/28/25 11:08 Blood Pressure 126/52 H 02/28/25 11:00 Blood Pressure Mean 76 02/28/25 11:00 Blood Pressure Source Monitor 02/28/25 11:00 Blood Pressure Position Semi-Fowlers 02/28/25 11:00 Blood Pressure Location Right Forearm 02/28/25 11:00 Pulse Ox 99 02/28/25 11:00 Oxygen Delivery Method Mechanical Ventilator 02/28/25 11:00 Oxygen Flow Rate (L/min) 95 02/15/25 15:15 Fraction of Inspired Oxygen (FIO2) 30 02/28/25 11:00 I&O: I&O Last 24 Hours 02/27/25 02/28/25 02/28/25 23:59 11:59 23:59 Intake Total 294.75 / 864.22 335.96 / 445.96 110 / 445.96 Output Total 1250 / 1950 Balance -955.25 / -1085.78 335.96 / 445.96 110 / 445.96 I&O: Total Stay 02/05/25 09:43 thru 02/28/25 12:22 Intake Total 12101.78 Output Total 84088 Balance -24289.22 Current Meds Ordered / Administered: Current meds ordered / Administered Generic Name Dose Route Start Last Admin Trade Name Freq PRN Reason Stop Dose Admin Acetaminophen 650 mg 02/05/25 13:41 02/07/25 23:29 Acetaminophen 325 Mg Tablet PO 650 mg Q6H PRN PRN Administration Pain 1-10 Or Fever >100.7 Albuterol Sulfate 2.5 mg 02/22/25 11:14 Albuterol 2.5 Mg/3 Ml Vial.Neb. INHALATION Q8H.RT PRN WHEEZING OR COUGH Aspirin 81 mg 02/27/25 08:00 02/28/25 07:34 Aspirin 81 Mg Tab.Chew GT Not Given BREAKFAST PARMINDER Atorvastatin Calcium 40 mg 02/05/25 22:00 02/27/25 21:50 Atorvastatin Calcium 40 Mg Tablet PO 40 mg QHS PARMINDER Administration Calamine/Phenol 1 applic 02/11/25 22:00 02/28/25 05:58 Menthol/Lanolin/Calamine/Znox 113 Gm Tube TOPICAL 1 applic TID PARMINDER Administration Protocol Carvedilol 6.25 mg 02/05/25 19:30 02/28/25 08:42 Carvedilol 6.25 Mg Tablet PO 6.25 mg BIDCM PARMINDER Administration Protocol Chlorhexidine Gluconate 15 ml 02/10/25 10:00 02/28/25 08:42 Chlorhexidine 15 Ml PO 15 ml BID PARMINDER Administration Chlorhexidine Gluconate 1 each 02/13/25 10:00 02/28/25 08:42 Chlorhexidine Gluc 2% Cloth 1 Each Towelette TOPICAL 1 each DAILY PARMINDER Administration Fentanyl Citrate 50 mcg 02/11/25 11:33 Fentanyl 100 Mcg/2 Ml Ampul IV Q1H PRN PRN CPOT score > 3 Fluoxetine HCl 10 mg 02/06/25 10:00 02/28/25 11:03 Fluoxetine 10 Mg Capsule PO 10 mg DAILY PARMINDER Administration Furosemide 60 mg 02/22/25 18:00 02/28/25 11:04 Furosemide 100 Mg/10 Ml Vial IV 60 mg BIDLX PARMINDER Administration Protocol Guaifenesin 10 ml 02/10/25 14:00 02/28/25 05:58 Guaifenesin 10 Ml Udc (200mg/10ml) NG 10 ml Q8H PARMINDER Administration Heparin Sodium (Porcine) 5,000 unit 02/08/25 14:00 02/13/25 22:45 Heparin Injection (Vial) 5,000 Unit/Ml Vial SC Not Given Q8 [facility] Hydralazine HCl 10 mg 02/06/25 08:30 02/28/25 05:56 Hydralazine 10 Mg Tablet PO 10 mg TID PARMINDER Administration Protocol Sodium Chloride 250 mls @ 15 mls/hr 02/05/25 16:53 02/23/25 12:38 IV Infused .[id number] PRN Infusion Saline Flush Sodium Chloride 250 mls @ 15 mls/hr 02/05/25 16:53 IV .[id number] PRN Additional IVPB Infusion Pantoprazole Sodium 40 mg/ 110 mls @ 330 mls/hr 02/08/25 12:30 02/28/25 12:22 Sodium Chloride IV Infused Q24 PARMINDER Infusion Dexmedetomidine HCl 1,000 mcg/ 250 mls @ 13.225 mls/hr 02/10/25 01:30 02/28/25 08:45 Sodium Chloride CONT INF Infused .[id number] [facility] Titration Protocol 0.5 MCG/KG/HR Dextrose 125 mls @ 999 mls/hr 02/21/25 12:24 02/26/25 06:36 Dextrose 10%-Water IV Infused .Q8M PRN Infusion HYPOGLYCEMIA Enteral Nutritional Formula 1,000 mls @ 60 mls/hr 02/28/25 12:30 Vital High Protein GT .[id number] [facility] Insulin Glargine 10 unit 02/26/25 10:00 02/28/25 11:02 Insulin Glargine-Yfgn 100 Unit/Ml Pen SC Not Given BID [facility] Insulin Human Lispro 0 unit 02/16/25 12:00 02/28/25 11:08 Insulin Lispro 100 Unit/Ml Insuln.Pen SC Not Given Q6 [facility] Protocol Isosorbide Dinitrate 5 mg 02/06/25 10:00 02/28/25 11:03 Isosorbide Dn 10 Mg Tablet PO 5 mg BID PARMINDER Administration Protocol Multi-Ingredient Ointment 1 applic 02/21/25 10:26 02/21/25 18:45 Mineral Oil/Petrolatum Cr 1.75oz Bottle TOPICAL 1 applic 4X/DAY PRN PRN Administration Dry Lips Protocol Polyethylene Glycol 17 gm 02/24/25 10:00 02/28/25 10:56 Polyethylene Glycol 3350 17 Gm Packet PO Not Given BID PARMINDER Senna/Docusate Sodium 2 tablet 02/07/25 10:00 02/28/25 10:56 Senna/Docusate Sodium 1 Tablet PO Not Given BID PARMINDER Sodium Chloride 10 - 40 ml 02/05/25 16:13 02/27/25 05:18 0.9% Saline Lock 10 Ml Syringe IV 20 ml UD PRN Administration SALINE FLUSH Lab / Micro Data 02/28/25 07:40 02/28/25 07:40 Labs: Laboratory Results - last 24 hr 02/27/25 17:35: POC Glucose 77 02/27/25 22:33: POC Glucose 92 02/28/25 05:59: POC Glucose 96 02/28/25 07:40: WBC 8.5, RBC 4.04 L, Hgb 8.8 L, Hct 30.1 L, MCV 74.5 L, MCH 21.8 L, MCHC 29.2 L, RDW Std Deviation 50.6 H, RDW Coeff of Bulmaro 18.8 H, Plt Count 399, MPV 9.6, Immature Gran % (Auto) 0.500, Neut % (Auto) 76.8 H, Lymph % (Auto) 10.5 L, [place] % (Auto) 9.0, Eos % (Auto) 2.0, Baso % (Auto) 1.2 H, Absolute Neuts (auto) 6.5, Absolute Lymphs (auto) 0.89, Nucleated RBC % 0, Sodium 139, Potassium 4.1, Chloride 101, Carbon Dioxide 18.2 L, Anion Gap 19 H, BUN 44 H, Creatinine 1.57 H, Estim Creat Clear Calc 36.63 L, Est GFR (MDRD) Non-Af 34 L, BUN/Creatinine Ratio 27.8 H, Glucose 91, Calcium 8.7 02/28/25 11:01: POC Glucose 88 Rhythm Strip Rhythm Strip: Sinus Rhythm Rate: 104 Assessment and Plan . Assessment and plan: HPI Patient seen and examined Chart and data reviewed She is awake and alert, up in a chair Open tracheostomy placed 6/3 CPAP for about an hour today - RR increased to 30s BPM No HD today MV 11 LPM, PIP 26, FiO2 0.21 HD stable EXAM GEN NAD VS as above HEENT o/p clear NECK midline tube COR irreg CHEST decreased ABD soft EXT minimal edema SKIN w/d [place] NF ASSESSMENT/PLAN 1. Prolonged respiratory failure and MV support 2. s/p tracheostomy placement 3. Advanced renal insufficiency 4. Severe cardiomyopathy, markedly reduced LVSF, MR, PAH 5. Obesity / DM 6. Ileus 7. Anemia -MV support -reduce support as tolerated -diuresis v. UF -TF as tolerated -sq insulin -VTE ppx -mobilize as able -appears to require LTACH Critical Care Time: 50 minutes The entirety of this encounter was done via Telemedicine
[2025-02-28] MEDS: Vital High Protein 1,000 ML 60 ML GT (14:48)
[2025-02-28 15:36] LABS: Allen Test POSITIVE; Bicarbonate 17.8 mmol/L (22-26); Blood Gas Specimen Type ART; Comment SBT X1 HR; Mode SPONT; PEEP 5; PO2 62 mmHG (75-100); PS 5; SITE R RADIAL; pCO2 31.4 mmHg (35-45); pH 7.36 (7.35-7.45)
[2025-02-28 15:37] LABS: Base Excess -8 mmol/L (-2 to +2); SO2 91 % (95-99); Total Carbon Dioxide 19 mmol/L
[2025-02-28 18:29] LABS: Bedside Glucose 115 mg/dL (74-106)
[2025-02-28] MEDS: Atorvastatin Calcium 40 MG Tablet PO (22:47)
[2025-02-28 23:13] LABS: Bedside Glucose 157 mg/dL (74-106)
[2025-03-01] VITALS (41 sets, daily range): BP systolic 123–216; BP diastolic 44–96; PULSE 77–99; RESP 14–27; TEMP 36.2–36.6; O2SAT 90–100; BMI 37.3; BMI 37.1
--- NOTE | 2025-03-01 00:17 | PCM.HOSP.N ---
Hospitalist Note RN noting concern of possible feculant emesis, holding TF will get STAT KUB. In the interim will place LIS to the PEG.
--- NOTE | 2025-03-01 01:00 | RAD_ITS ---
PROCEDURE: ABDOMEN SINGLE VIEW (PORTABLE) 03/01/2025 REASON FOR EXAM: ? FECULENT EMESIS TECHNIQUE: Multiple views of the abdomen and pelvis COMPARISON: Abdominal radiographs dated 02/25/2025. FINDINGS: Imaging acquisition technique and patient positioning limits this evaluation, and bowel-gas pattern is difficult to evaluate. There is a percutaneous tube projecting over the right mid abdomen. Bowel loops are not well visualized, and there is no significant gaseous distention. Osseous structures are unchanged. RAD/Abdomen Single View (Portable) IMPRESSION: Limited exam, without significant interval change from the radiographs on 02/25. Bowel loops are not well visualized. Reading Location: [facility]
[2025-03-01 06:13] LABS: Absolute Lymphocyte Count 1.06 X10^3/uL (0.83-4.51); Absolute Neutrophil Count 11.1 X10^3/uL (2.0-7.7); Basophil% 0.7 % (0-1); Eosinophil# 0.06 X10^3/uL; Eosinophils% 0.4 % (0-5); Hematocrit 30.4 % (37-47); Hemoglobin 8.7 g/dL (12.0-15.0); Lymphocyte # 1.06 X10^3/ul (0.83-4.51); Lymphocyte % 7.9 % (19-41); Mean Corp Hgb Conc 28.6 g/dL (32-36); Mean Corpuscular Hgb 21.8 pg (27.0-32.0); Mean Platelet Vol. 9.8 fl (6.2-12.0); Monocyte# 0.89 X10^3/uL; Monocyte% 6.7 % (0-10); NRBC Flagged by Analyzer 0 % (0-5); Neutrophil # 11.14 X10^3/uL (2.7-7.7); Neutrophil % 83.6 % (47-70); Platelet Count 464 K/mm3 (150-450); RBC Distribution Width CV 19.2 % (11.6-14.6); RBC Distribution Width SD 52.8 fl (35.1-43.9); White Blood Count 13.3 K/mm3 (4.4-11.0)
[2025-03-01 06:19] LABS: Anion Gap 30 (5-15); BUN 52 mg/dL (4-19); BUN/Creat Ratio 24.5 RATIO (10-20); Calcium,Total 8.5 mg/dL (7.6-11.0); Carbon Dioxide 10.8 mmol/L (21.0-32.0); Chloride 101 mmol/L (98-108); Creatinine, Serum 2.11 mg/dL (0.70-1.20); EST Glomerular Filtration Rate 24 (>60); Glucose 165 mg/dL (70-99); Potassium 3.8 mmol/L (3.3-5.1); Sodium Level 142 mmol/L (133-145)
--- NOTE | 2025-03-01 07:05 | PCM.PN.INT ---
Assessment & Plan Assessment/Plan (1) Acute on chronic combined systolic (congestive) and diastolic (congestive) heart failure: (2) Urinary tract infection: (3) Acute respiratory failure with hypoxia and hypercarbia: (4) Chronic kidney disease (CKD): QUALIFIERS: Chronic kidney disease stage: stage 4 (GFR 15-29) Qualified Code(s): N18.4 - Chronic kidney disease, stage 4 (severe) PLAN: Plan RECOMMENDATIONS: 1. Continue assist-control mode of mechanical ventilation. 2. Continue daily attempts at spontaneous breathing trials. 3. Physical therapy to work with the patient. 4. Continue appropriate ICU prophylaxis. 5. Hold tube feeding for now. 6. LTACH disposition is pending. IMPRESSIONS: 1. Acute respiratory failure with hypoxemia and hypercapnia secondary to decompensated heart failure The patient was initially admitted to the hospital with acute decompensated congestive heart failure and UTI, but worsened from a respiratory perspective on the morning of February 08, with increasing oxygen requirement and lethargy. Subsequent ABG demonstrated acute CO2 retention, which was refractory to the use of noninvasive positive pressure ventilatory support. Therefore, the patient was intubated. The patient appears to have stabilized from a respiratory perspective following intubation. She will be continued on assist-control mode of mechanical ventilation, with a goal to wean FiO2 and PEEP as tolerated. Unfortunately, despite continued supportive care, the patient continues to fail attempts at spontaneous breathing trials. The patient was notably physically debilitated and underwent PEG tube placement on February 21 and tracheostomy placement on February 27. The patient continues to fail spontaneous breathing trials due to increasing tachypnea and low tidal volumes. She will require LTACH disposition for prolonged weaning from invasive mechanical ventilatory support. 2. Acute on chronic combined systolic and diastolic heart failure Continue medical management per cardiology recommendations. 3. Acute on chronic kidney disease Suspect that this is related to underlying cardiorenal syndrome. Continue medical management per nephrology recommendations. 4. Morbid obesity/anemia/diabetes mellitus/history of CVA/depression/anxiety Complicates care, management, recovery and prognosis. Continue supportive measures as noted above. TIME: 31 minutes of critical care time, independent of procedures, was spent addressing the patient's acute respiratory failure with hypoxemia and hypercapnia, acute decompensated congestive heart failure, acute on chronic kidney disease, review of all data and collaboration with the care team. Subjective Subjective The patient was seen and examined at the bedside this morning. Events from the last 24 hours have been reviewed. The patient is currently afebrile, hemodynamically stable and maintaining appropriate oxygen saturations on assist-control mode of mechanical ventilation. The patient underwent successful tracheostomy placement on February 27. She has subsequently failed two breathing trial attempts, both yesterday and again this morning with the development of tachypnea and tidal volumes in the low 200s when removed from assist-control mode mechanical ventilation. Objective Data Objective Data The patient's most recent lab work, culture data and imaging studies have all been personally reviewed. Surface echocardiogram demonstrated an ejection fraction of 15%. Urine culture was positive for pansensitive E. coli. Blood cultures have not demonstrated any growth to date. Sputum culture has not demonstrated any growth to date. Vital Signs: Vital Signs Temp Pulse Resp BP Pulse Ox O2 Del Method O2 Flow Rate 97.2 F L 96 18 155/60 H 96 Mechanical Ventilator 95 03/01/25 00:00 03/01/25 06:00 03/01/25 06:00 03/01/25 06:00 03/01/25 06:00 03/01/25 06:00 02/15/25 15:15 FiO2 21 03/01/25 06:00 Oxygen Flow Rate (L/min) 95 Oxygen Delivery Method Mechanical Ventilator Weight: 223 lb 15.834 oz Body Mass Index (BMI) 37.3 Intake & Output: Intake and Output for Last 24 Hours 02/27/25 02/28/25 03/01/25 23:59 23:59 23:59 Intake Total 717.72 / 864.22 616.29 / 616.29 Output Total 1950 / 1950 350 / 850 800 / 800 Balance -1232.28 / -1085.78 266.29 / -233.71 -800 / -800 Lab / Micro Data Attestation: I reviewed the patient's lab results. 03/01/25 05:18 03/01/25 05:18 Labs: Laboratory Results - last 24 hr 02/28/25 07:40: WBC 8.5, RBC 4.04 L, Hgb 8.8 L, Hct 30.1 L, MCV 74.5 L, MCH 21.8 L, MCHC 29.2 L, RDW Std Deviation 50.6 H, RDW Coeff of Bulmaro 18.8 H, Plt Count 399, MPV 9.6, Immature Gran % (Auto) 0.500, Neut % (Auto) 76.8 H, Lymph % (Auto) 10.5 L, [place] % (Auto) 9.0, Eos % (Auto) 2.0, Baso % (Auto) 1.2 H, Absolute Neuts (auto) 6.5, Absolute Lymphs (auto) 0.89, Nucleated RBC % 0, Sodium 139, Potassium 4.1, Chloride 101, Carbon Dioxide 18.2 L, Anion Gap 19 H, BUN 44 H, Creatinine 1.57 H, Estim Creat Clear Calc 36.63 L, Est GFR (MDRD) Non-Af 34 L, BUN/Creatinine Ratio 27.8 H, Glucose 91, Calcium 8.7 02/28/25 11:01: POC Glucose 88 02/28/25 18:02: POC Glucose 115 H 02/28/25 22:54: POC Glucose 157 H 03/01/25 05:18: WBC 13.3 H, RBC 4.00 L, Hgb 8.7 L, Hct 30.4 L, MCV 76.0 L, MCH 21.8 L, MCHC 28.6 L, RDW Std Deviation 52.8 H, RDW Coeff of Bulmaro 19.2 H, Plt Count 464 H, MPV 9.8, Immature Gran % (Auto) 0.700, Neut % (Auto) 83.6 H, Lymph % (Auto) 7.9 L, [place] % (Auto) 6.7, Eos % (Auto) 0.4, Baso % (Auto) 0.7, Absolute Neuts (auto) 11.1 H, Absolute Lymphs (auto) 1.06, Nucleated RBC % 0, Sodium 142, Potassium 3.8, Chloride 101, Carbon Dioxide 10.8 L, Anion Gap 30 H, BUN 52 H, Creatinine 2.11 H, Estim Creat Clear Calc 26.80 L, Est GFR (MDRD) Non-Af 24 L, BUN/Creatinine Ratio 24.5 H, Glucose 165 H, Calcium 8.5 Micro: Microbiology 02/05/25 12:15 Blood Culture (Wb) - Left Wrist Blood Culture - Final No growth in 5 days. 02/05/25 12:04 Blood Culture (Wb) - Right Hand Blood Culture - Final No growth in 5 days. 02/08/25 11:15 Sputum, Induced/Lukens Gram Stain - Final 02/08/25 11:15 Sputum, Induced/Lukens Respiratory Culture - Final Mixed normal respiratory dave. No Streptococcus pneumoniae, beta-hemolytic Streptococcus or Staphylococcus aureus isolated. 02/08/25 00:05 Stool Stool Occult Blood (TREVOR) - Final 02/05/25 11:20 Urine Catheter - Catheter Urine Culture - Final Presumptive E. coli 02/05/25 16:50 Nasal Secretion MRSA (PCR) - Final 02/05/25 16:50 Wound - Leg, Left Skin and Soft Tissue MRSA/MSSA (PCR - Final ABG Data ABG results: ABG 02/28/25 12:09 Specimen Type ART Sample Site R RADIAL pH 7.36 Bicarbonate Actual 17.8 L Total CO2 19 Base Excess -8 L O2 Saturation 91 L O2 % 21.0 ABG pCO2 31.4 L ABG pO2 62 L Harvey Test POSITIVE Vent Mode SPONT POC PEEP 5 POC Pressure Suppt 5 Blood Gas Notified Whom YOVANI Clinical Comments SBT X1 HR Radiography Diagnostic Testing: Radiology Impression KUB X-Ray 03/01/25 01:00 IMPRESSION: Limited exam, without significant interval change from the radiographs on 02/25/2025. Bowel loops are not well visualized. Reading Location: [id number] Rhythm Strip Rhythm Strip: Sinus Rhythm Rate: 104 Physical Exam Const alert and no apparent distress General Appearance: patient mechanically ventilated HEENT normocephalic and head/scalp atraumatic HEENT Narrative: Tracheostomy in place Eyes PERRL, EOMs intact bilaterally and conjunctivae normal Neck supple General: trachea midline Chest inspection of chest normal Resp Auscultation: diminished lung sounds; Negative for rales, rhonchi or wheezes Cardio regular rate and regular rhythm GI normal to inspection, nondistended, normoactive bowel sounds GI Narrative: PEG tube in place. Extremity General Extremity: edema; Negative for clubbing Skin Skin Narrative: Wrapped extremities. Neuro Neuro Narrative: Alert and able to follow simple commands. Charges/Coding Procedures Hospitalists Procedures: [id number] Critical Care 1st Hr
--- NOTE | 2025-03-01 10:08 | CASEMGMT ---
SBT documentation (from 02/28 and 03/01), updated labs, progress notes, med list, and vent settings sent to the LTACH via [facility] at this time. This RN CM was notified by the HD nurse that the pt may require HD again. Maximo ([facility] liaison) notified and states that they can handle that. Maximo also reports that he was in contact with the pt's son and that he plans to get the consent paperwork signed today. This RN CM inquired if the pt has the potential to DC to the LTACH over the weekend. Maximo states that this depends on precert as well as their bed availability at the time. Again, precert cannot be started until there is documentation provided for the third failed SBT on separate days. Maximo states that he will initiate precert promptly after he gets the required documentation tomorrow. Maximo states that his colleague will be covering for him this weekend. RYNE PICHARDO inquired if there is a fax number for weekend coverage. Maximo provided the following fax number: [phone]. Maximo also states that the attending MD there changes each day, and that he cannot provide an accepting MD at this time. Maximo does provide a N2N number now. Nurse to call [phone] for handoff once appropriate. CM to follow.
[2025-03-01] MEDS: Chlorhexidine 15 ML PO ×2 (10:19→22:21)
[2025-03-01] MEDS: CHLORHEXIDINE GLUC 2% CLOTH 1 EACH TOWELETTE TOPICAL (10:19)
[2025-03-01] MEDS: Pantoprazole Sodium 40 MG in 0.9% Normal Saline (100mL MB+) 100 ML 330 MG IV (10:32)
[2025-03-01 11:14] LABS: Anion Gap 29 (5-15); BUN 53 mg/dL (4-19); Calcium,Total 8.6 mg/dL (7.6-11.0); Carbon Dioxide 12.3 mmol/L (21.0-32.0); Chloride 101 mmol/L (98-108); Creatinine, Serum 2.21 mg/dL (0.70-1.20); EST Glomerular Filtration Rate 23 (>60); Estimated Creatinine Clearance 25.59 ml/min (50-250); Glucose 160 mg/dL (70-99); Potassium 3.7 mmol/L (3.3-5.1); Sodium Level 142 mmol/L (133-145)
[2025-03-01 11:18] LABS: Lactic Acid < 1.0 mmol/L (0.0-2.0)
[2025-03-01] MEDS: Insulin Lispro 100 UNIT/ML INSULN.PEN SC (11:24)
[2025-03-01] MEDS: Insulin Glargine-YFGN 100 UNIT/ML Pen 10 UNIT SC (11:24)
[2025-03-01 11:44] LABS: Bedside Glucose 154 mg/dL (74-106)
[2025-03-01] MEDS: PureFlow B 3K Dialysis Soln 1 BAG 6 BAG PF (11:53)
[2025-03-01] MEDS: 0.9% Normal Saline 1,000 ML IV.SOLN. 1000 ML OPERA.SITE (11:53)
[2025-03-01] MEDS: 0.9% Saline Lock 10 ML Syringe IV ×2 (11:54→14:31)
--- NOTE | 2025-03-01 14:26 | PN_ITS ---
Subjective Subjective Patient seen and examined. She remains on the ventilator via the trach on minimal settings. According to her nurse she filled another breathing trial today. She is alert and able to nod or shake her head in response to questions. She had no complaints. She has otherwise remained hemodynamically stable. Objective Data Objective Data Vital Signs: Vital Signs Temp Pulse Resp BP Pulse Ox O2 Del Method O2 Flow Rate 97.6 F L 84 21 H 162/44 H 100 Mechanical Ventilator 95 03/01/25 12:00 03/01/25 14:15 03/01/25 14:15 03/01/25 14:15 03/01/25 14:15 03/01/25 14:15 02/15/25 15:15 FiO2 21 03/01/25 14:15 Oxygen Flow Rate (L/min) 95 Oxygen Delivery Method Mechanical Ventilator Weight: 223 lb 15.834 oz Body Mass Index (BMI) 37.3 Intake & Output: Intake and Output for Last 24 Hours 02/27/25 02/28/25 03/01/25 23:59 23:59 23:59 Intake Total 717.72 / 864.22 616.29 / 616.29 110 / 110 Output Total 1950 / 1950 350 / 850 1140 / 1140 Balance -1232.28 / -1085.78 266.29 / -233.71 -1030 / -1030 Lab / Micro Data 03/01/25 05:18 03/01/25 10:25 Labs: Laboratory Results - last 24 hr 02/28/25 18:02: POC Glucose 115 H 02/28/25 22:54: POC Glucose 157 H 03/01/25 05:18: WBC 13.3 H, RBC 4.00 L, Hgb 8.7 L, Hct 30.4 L, MCV 76.0 L, MCH 21.8 L, MCHC 28.6 L, RDW Std Deviation 52.8 H, RDW Coeff of Bulmaro 19.2 H, Plt Count 464 H, MPV 9.8, Immature Gran % (Auto) 0.700, Neut % (Auto) 83.6 H, Lymph % (Auto) 7.9 L, [place] % (Auto) 6.7, Eos % (Auto) 0.4, Baso % (Auto) 0.7, Absolute Neuts (auto) 11.1 H, Absolute Lymphs (auto) 1.06, Nucleated RBC % 0, Sodium 142, Potassium 3.8, Chloride 101, Carbon Dioxide 10.8 L, Anion Gap 30 H, BUN 52 H, C reatinine 2.11 H, Estim Creat Clear Calc 26.80 L, Est GFR (MDRD) Non-Af 24 L, B UN/Creatinine Ratio 24.5 H, Glucose 165 H, Calcium 8.5 03/01/25 10:25: Sodium 142, Potassium 3.7, Chloride 101, Carbon Dioxide 12.3 L, Anion Gap 29 H, BUN 53 H, Creatinine 2.21 H, Estim Creat Clear Calc 25.59 L, Est GFR (MDRD) Non-Af 23 L, BUN/Creatinine Ratio 24.0 H, Glucose 160 H, Lactic Acid < 1.0, Calcium 8.6 03/01/25 11:23: POC Glucose 154 H Micro: Microbiology 02/05/25 12:15 Blood Culture (Wb) - Left Wrist Blood Culture - Final No growth in 5 days. 02/05/25 12:04 Blood Culture (Wb) - Right Hand Blood Culture - Final No growth in 5 days. 02/08/25 11:15 Sputum, Induced/Lukens Gram Stain - Final 02/08/25 11:15 Sputum, Induced/Lukens Respiratory Culture - Final Mixed normal respiratory dave. No Streptococcus pneumoniae, beta-hemolytic Streptococcus or Staphylococcus aureus isolated. 02/08/25 00:05 Stool Stool Occult Blood (TREVOR) - Final 02/05/25 11:20 Urine Catheter - Catheter Urine Culture - Final Presumptive E. coli 02/05/25 16:50 Nasal Secretion MRSA (PCR) - Final 02/05/25 16:50 Wound - Leg, Left Skin and Soft Tissue MRSA/MSSA (PCR - Final ABG Data ABG results: ABG 02/28/25 12:09 Specimen Type ART Sample Site R RADIAL pH 7.36 Bicarbonate Actual 17.8 L Total CO2 19 Base Excess -8 L O2 Saturation 91 L O2 % 21.0 ABG pCO2 31.4 L ABG pO2 62 L Harvey Test POSITIVE Vent Mode SPONT POC PEEP 5 POC Pressure Suppt 5 Blood Gas Notified Whom YOVANI Clinical Comments SBT X1 HR Radiography Diagnostic Testing: Radiology Impression KUB X-Ray 03/01/25 01:00 IMPRESSION: Limited exam, without significant interval change from the radiographs on 02/25/2025. Bowel loops are not well visualized. Reading Location: [id number] Rhythm Strip Rhythm Strip: Sinus Rhythm Rate: 104 Physical Exam Const alert and no apparent distress Constitutional Narrative: flat affect, cooperative, intubated via trach General Appearance: cooperative, intubated and patient mechanically ventilated HEENT normocephalic, head/scalp atraumatic, moist oral mucous membranes and oropharynx normal Eyes PERRL, EOMs intact bilaterally and conjunctivae normal Neck supple Neck Narrative: trach in situ Lymph Lymphatic: no lymphedema noted Resp Resp Narrative: moderately diminished breath sounds bibasally, intubated and sedated. RASS score is 0. Cardio regular rate, regular rhythm, S1 normal heart sound, S2 normal heart sound and no murmurs GI normal to inspection, nondistended, normoactive bowel sounds, soft to palpation and non-tender GI Narrative: obese abdomen, PEG tube in situ Extremity normal capillary refill, no clubbing, cyanosis or edema and no calf tenderness General Extremity: edema and no tenderness to palpation of joints or extremities Skin no rashes or lesions noted General Skin Exam: no breakdown Neuro CN's II-XII intact bilaterally and no focal motor deficits Neuro Narrative: flat affect, RASS score is 0. Sensorium / Orientation: sedated on vent Motor Exam: general weakness Psych Psych Narrative: alert, flat affect. RASS score is 0; on precedex drip. Appearance: intubated Mood & Affect: flat affect Assessment & Plan Assessment/Plan (1) Respiratory failure: (2) Acute respiratory failure with hypoxia and hypercarbia: (3) Cellulitis of right anterior lower leg: PLAN: Plan #Acute hypoxic and hypercapnic respiratory failure due to acute exacerbation of combined heart failure * .Remains on minimal vent settings. * Has failed multiple continuous breathing trials. * Critical care on board. Titrate dopamine to maintain saturation above 90%. * Has had PEG tube inserted by GI. Had Trach inserted by ENT 2 days ago * failed spontaneous breathing trial again today * #Acute on chronic combined heart failure * On IV lasix. Also received metolazone * on carvedilol. * 2D echo as below. Cardiology on board. * #Elevated troponin * Was thought to be due to demand ischemia and therefore likely type II non- STEMI * She does have a history of CAD s/p stents carvedilol was held due to fluid overload. Also on Imdur. * 2D echo showed EF of 15% with LV akinesia and regnial wall motion abnormalities. * cardiology on board. #ELIDA on CKD stage IV with anion gap metabolic acidosis * Nephrology on board. * Has required dialysis during this admission. Will monitor. * Cr is 2.21 today. management as per nephrology * Bicarb today is 12.3 and anion gap is 29. BUN is 53. Nephrology on board patient will require dialysis. #Type 2 diabetes mellitus: * Insulin sliding scale. Accu-Cheks every 6 hourly. * On tube feeds also on Lantus 35 units twice daily #Chronic iron deficiency anemia: Hemoglobin has remained stable. Will monitor. #RLE ulcer and cellulitis: stable. #History of CVA: on aspirin and high intensity statin #Depression and anxiety: on fluoxetine #Nutrition: PEG tube in situ. On tube feeds. DVT prophylaxis: heparin Charges/Coding Visit Charges Inpatient E&M: 56223 Subs Hosp L2
[2025-03-01] MEDS: Heparin 10,000 UNITS/10 ML Vial IV (14:31)
--- NOTE | 2025-03-01 18:32 | PN.RENAL_ITS ---
Subjective Subjective events noted. high residuals on G tube feeds. abdomen is soft on exam. Objective Data Objective Data Vital Signs: Vital Signs Temp Pulse Resp BP Pulse Ox O2 Del Method O2 Flow Rate 97.7 F L 87 21 H 152/82 H 99 Mechanical Ventilator 95 03/01/25 14:49 03/01/25 18:00 03/01/25 18:00 03/01/25 18:00 03/01/25 18:00 03/01/25 18:00 02/15/25 15:15 FiO2 21 03/01/25 18:00 Oxygen Flow Rate (L/min) 95 Oxygen Delivery Method Mechanical Ventilator Weight: 101.2 kg Body Mass Index (BMI) 37.1 Intake & Output: Intake and Output for Last 24 Hours 02/27/25 02/28/25 03/01/25 23:59 23:59 23:59 Intake Total 717.72 / 864.22 616.29 / 616.29 110 / 110 Output Total 1950 / 1950 350 / 850 1490 / 1490 Balance -1232.28 / -1085.78 266.29 / -233.71 -1380 / -1380 Lab / Micro Data 03/01/25 05:18 03/01/25 10:25 Labs: Laboratory Results - last 24 hr 02/28/25 22:54: POC Glucose 157 H 03/01/25 05:18: WBC 13.3 H, RBC 4.00 L, Hgb 8.7 L, Hct 30.4 L, MCV 76.0 L, MCH 21.8 L, MCHC 28.6 L, RDW Std Deviation 52.8 H, RDW Coeff of Bulmaro 19.2 H, Plt Count 464 H, MPV 9.8, Immature Gran % (Auto) 0.700, Neut % (Auto) 83.6 H, Lymph % (Auto) 7.9 L, [place] % (Auto) 6.7, Eos % (Auto) 0.4, Baso % (Auto) 0.7, Absolute Neuts (auto) 11.1 H, Absolute Lymphs (auto) 1.06, Nucleated RBC % 0, Sodium 142, Potassium 3.8, Chloride 101, Carbon Dioxide 10.8 L, Anion Gap 30 H, BUN 52 H, C reatinine 2.11 H, Estim Creat Clear Calc 26.80 L, Est GFR (MDRD) Non-Af 24 L, B UN/Creatinine Ratio 24.5 H, Glucose 165 H, Calcium 8.5 03/01/25 10:25: Sodium 142, Potassium 3.7, Chloride 101, Carbon Dioxide 12.3 L, Anion Gap 29 H, BUN 53 H, Creatinine 2.21 H, Estim Creat Clear Calc 25.59 L, Est GFR (MDRD) Non-Af 23 L, BUN/Creatinine Ratio 24.0 H, Glucose 160 H, Lactic Acid < 1.0, Calcium 8.6 03/01/25 11:23: POC Glucose 154 H Micro: Microbiology 02/05/25 12:15 Blood Culture (Wb) - Left Wrist Blood Culture - Final No growth in 5 days. 02/05/25 12:04 Blood Culture (Wb) - Right Hand Blood Culture - Final No growth in 5 days. 02/08/25 11:15 Sputum, Induced/Lukens Gram Stain - Final 02/08/25 11:15 Sputum, Induced/Lukens Respiratory Culture - Final Mixed normal respiratory dave. No Streptococcus pneumoniae, beta-hemolytic Streptococcus or Staphylococcus aureus isolated. 02/08/25 00:05 Stool Stool Occult Blood (TREVOR) - Final 02/05/25 11:20 Urine Catheter - Catheter Urine Culture - Final Presumptive E. coli 02/05/25 16:50 Nasal Secretion MRSA (PCR) - Final 02/05/25 16:50 Wound - Leg, Left Skin and Soft Tissue MRSA/MSSA (PCR - Final Radiography Diagnostic Testing: Radiology Impression KUB X-Ray 03/01/25 01:00 IMPRESSION: Limited exam, without significant interval change from the radiographs on 02/25/2025. Bowel loops are not well visualized. Reading Location: [id number] Rhythm Strip Rhythm Strip: Sinus Rhythm Rate: 104 Physical Exam Narrative On ventilator support s1s2 no murmurs Lungs sound clear anteriorly abdomen soft Edema bilateral legs, improved morillo + clear yellow urine in bag tunneled HD catheter dressing C/D/I Assessment & Plan Assessment/Plan (1) ELIDA (acute kidney injury): (2) Chronic kidney disease (CKD): QUALIFIERS: Chronic kidney disease stage: stage 4 (GFR 15-29) Q ualified Code(s): N18.4 - Chronic kidney disease, stage 4 (severe) PLAN: Plan Impression/Plan: Patient is a 74-year-old female with past history of type 2 diabetes mellitus, hypertension, CAD, ischemic cardiomyopathy with HFrEF (EF 15%), pulmonary hypertension, stroke, and hyperlipidemia. Patient presents to the hospital on 02/05/2025 with 1 week history of progressively worsening dyspnea and lower extremity edema. Patient was admitted to the hospital for treatment of acute hypoxic respiratory failure requiring NIV. Nephrology is following for ELIDA on CKD. -Hypervolemia acute kidney injury superimposed on CKD stage IV. Baseline SCr 1.80 to 2.00 mg/dL prior to this admission. Suspect ELIDA is secondary to cardiorenal syndrome, initially patient did not respond well to IV diuresis and therefore was started on HD via tunneled HD catheter. Started dialysis 02/14/2025. Last HD 02/20. s/p Trach overnight renal function worsened. bicarbonate low. 10 and 12 on repeat. significantly elevated anion gap. dw ICU attending. Lactate level ordered came back ok. ? starvation ketosis. due to worsening renal failure and acidosis will plan for HD once. dw staff
[2025-03-01] MEDS: Menthol/Lanolin/Calamine/Znox 113 GM Tube 1 APPLIC TOPICAL (22:21)
[2025-03-02] VITALS (33 sets, daily range): BP systolic 128–178; BP diastolic 54–101; PULSE 81–129; RESP 14–23; TEMP 35.8–36.6; O2SAT 92–100; BMI 37.1
[2025-03-02 06:17] LABS: Absolute Lymphocyte Count 1.02 X10^3/uL (0.83-4.51); Absolute Neutrophil Count 8.8 X10^3/uL (2.0-7.7); Basophil# 0.11 X10^3/uL; Eosinophil# 0.21 X10^3/uL; Eosinophils% 1.9 % (0-5); Hematocrit 30.6 % (37-47); Hemoglobin 8.9 g/dL (12.0-15.0); Lymphocyte # 1.02 X10^3/ul (0.83-4.51); Lymphocyte % 9.2 % (19-41); Mean Corp Hgb Conc 29.1 g/dL (32-36); Mean Corpuscular Hgb 21.6 pg (27.0-32.0); Mean Corpuscular Volume 74.3 fL (81-99); Mean Platelet Vol. 9.5 fl (6.2-12.0); Monocyte# 0.95 X10^3/uL; Monocyte% 8.5 % (0-10); NRBC Flagged by Analyzer 0 % (0-5); Neutrophil # 8.79 X10^3/uL (2.7-7.7); Neutrophil % 78.9 % (47-70); Platelet Count 416 K/mm3 (150-450); RBC Distribution Width CV 19.6 % (11.6-14.6); RBC Distribution Width SD 52.1 fl (35.1-43.9); Red Blood Count 4.12 M/mm3 (4.2-5.4); White Blood Count 11.1 K/mm3 (4.4-11.0)
[2025-03-02 06:21] LABS: Bedside Glucose 139 mg/dL (74-106)
[2025-03-02 06:51] LABS: Anion Gap 25 (5-15); BUN 36 mg/dL (4-19); BUN/Creat Ratio 21.3 RATIO (10-20); Calcium,Total 9.2 mg/dL (7.6-11.0); Carbon Dioxide 15.4 mmol/L (21.0-32.0); Chloride 101 mmol/L (98-108); Creatinine, Serum 1.67 mg/dL (0.70-1.20); EST Glomerular Filtration Rate 32 (>60); Estimated Creatinine Clearance 33.77 ml/min (50-250); Glucose 144 mg/dL (70-99); Potassium 3.6 mmol/L (3.3-5.1); Sodium Level 142 mmol/L (133-145)
--- NOTE | 2025-03-02 06:54 | PN.CC_ITS ---
Assessment & Plan Assessment/Plan (1) Acute on chronic combined systolic (congestive) and diastolic (congestive) heart failure: (2) Urinary tract infection: (3) Acute respiratory failure with hypoxia and hypercarbia: (4) Chronic kidney disease (CKD): QUALIFIERS: Chronic kidney disease stage: stage 4 (GFR 15-29) Q ualified Code(s): N18.4 - Chronic kidney disease, stage 4 (severe) PLAN: Plan RECOMMENDATIONS: 1. Continue assist-control mode of mechanical ventilation. 2. Continue daily attempts at spontaneous breathing trials. 3. Physical therapy to work with the patient. 4. Continue appropriate ICU prophylaxis. 5. Continue to hold tube feeding for now. 6. LTACH disposition is pending. IMPRESSIONS: 1. Acute respiratory failure with hypoxemia and hypercapnia secondary to decompensated heart failure The patient was initially admitted to the hospital with acute decompensated congestive heart failure and UTI, but worsened from a respiratory perspective on the morning of February 08, with increasing oxygen requirement and lethargy. Subsequent ABG demonstrated acute CO2 retention, which was refractory to the use of noninvasive positive pressure ventilatory support. Therefore, the patient was intubated. The patient appears to have stabilized from a respiratory perspective following intubation. She will be continued on assist-control mode of mechanical ventilation, with a goal to wean FiO2 and PEEP as tolerated. Unfortunately, despite continued supportive care, the patient continues to fail attempts at spontaneous breathing trials. The patient was notably physically debilitated and underwent PEG tube placement on February 21 and tracheostomy placement on February 27. The patient continues to fail spontaneous breathing trials due to increasing tachypnea and low tidal volumes. She will require LTACH disposition for prolonged weaning from invasive mechanical ventilatory support. 2. Acute on chronic combined systolic and diastolic heart failure Continue medical management per cardiology recommendations. 3. Acute on chronic kidney disease Suspect that this is related to underlying cardiorenal syndrome. Continue medical management per nephrology recommendations. 4. Morbid obesity/anemia/diabetes mellitus/history of CVA/depression/anxiety Complicates care, management, recovery and prognosis. Continue supportive measures as noted above. TIME: 33 minutes of critical care time, independent of procedures, was spent addressing the patient's acute respiratory failure with hypoxemia and hypercapnia, acute decompensated congestive heart failure, acute on chronic kidney disease, review of all data and collaboration with the care team. Subjective Subjective The patient was seen and examined at the bedside this morning. Events from the last 24 hours have been reviewed. The patient is currently afebrile, hemodynamically stable and maintaining appropriate oxygen saturations on assist- control mode mechanical ventilation. The patient is documented to be overall net -13.6 L for the hospitalization. Creatinine has improved to 1.67. The patient once again failed her attempt at spontaneous breathing trial this morning with worsening tachypnea and tidal volumes sub 200. She has now failed 3 separate attempts at spontaneous breathing trials following her tracheostomy placement. Objective Data Objective Data The patient's most recent lab work, culture data and imaging studies have all been personally reviewed. Surface echocardiogram demonstrated an ejection fraction of 15%. Urine culture was positive for pansensitive E. coli. Blood cultures have not demonstrated any growth to date. Sputum culture has not demonstrated any growth to date. Vital Signs: Vital Signs Temp Pulse Resp BP Pulse Ox O2 Del Method O2 Flow Rate 96.5 F L 91 14 144/64 H 94 Mechanical Ventilator 95 03/02/25 06:00 03/02/25 06:00 03/02/25 06:00 03/02/25 06:00 03/02/25 05:00 03/02/25 06:00 02/15/25 15:15 FiO2 21 03/02/25 06:00 Oxygen Flow Rate (L/min) 95 Oxygen Delivery Method Mechanical Ventilator Weight: 222 lb 14.197 oz Body Mass Index (BMI) 37.1 Intake & Output: Intake and Output for Last 24 Hours 02/28/25 03/01/25 03/02/25 23:59 23:59 23:59 Intake Total 616.29 / 616.29 110 / 110 Output Total 350 / 850 2115 / 2115 100 / 100 Balance 266.29 / -233.71 -2004 / -2004 -100 / -100 Lab / Micro Data Attestation: I reviewed the patient's lab results. 03/02/25 06:00 03/02/25 06:00 Labs: Laboratory Results - last 24 hr 03/01/25 10:25: Sodium 142, Potassium 3.7, Chloride 101, Carbon Dioxide 12.3 L, Anion Gap 29 H, BUN 53 H, Creatinine 2.21 H, Estim Creat Clear Calc 25.59 L, Est GFR (MDRD) Non-Af 23 L, BUN/Creatinine Ratio 24.0 H, Glucose 160 H, Lactic Acid < 1.0, Calcium 8.6 03/01/25 11:23: POC Glucose 154 H 03/02/25 05:58: POC Glucose 139 H 03/02/25 06:00: WBC 11.1 H, RBC 4.12 L, Hgb 8.9 L, Hct 30.6 L, MCV 74.3 L, MCH 21.6 L, MCHC 29.1 L, RDW Std Deviation 52.1 H, RDW Coeff of Bulmaro 19.6 H, Plt Count 416, MPV 9.5, Immature Gran % (Auto) 0.500, Neut % (Auto) 78.9 H, Lymph % (Auto) 9.2 L, [place] % (Auto) 8.5, Eos % (Auto) 1.9, Baso % (Auto) 1.0, Absolute Neuts (auto) 8.8 H, Absolute Lymphs (auto) 1.02, Nucleated RBC % 0, Sodium 142, Potassium 3.6, Chloride 101, Carbon Dioxide 15.4 L, Anion Gap 25 H, BUN 36 H, C reatinine 1.67 H, Estim Creat Clear Calc 33.77 L, Est GFR (MDRD) Non-Af 32 L, B UN/Creatinine Ratio 21.3 H, Glucose 144 H, Calcium 9.2 Micro: Microbiology 02/05/25 12:15 Blood Culture (Wb) - Left Wrist Blood Culture - Final No growth in 5 days. 02/05/25 12:04 Blood Culture (Wb) - Right Hand Blood Culture - Final No growth in 5 days. 02/08/25 11:15 Sputum, Induced/Lukens Gram Stain - Final 02/08/25 11:15 Sputum, Induced/Lukens Respiratory Culture - Final Mixed normal respiratory dave. No Streptococcus pneumoniae, beta-hemolytic Streptococcus or Staphylococcus aureus isolated. 02/08/25 00:05 Stool Stool Occult Blood (TREVOR) - Final 02/05/25 11:20 Urine Catheter - Catheter Urine Culture - Final Presumptive E. coli 02/05/25 16:50 Nasal Secretion MRSA (PCR) - Final 02/05/25 16:50 Wound - Leg, Left Skin and Soft Tissue MRSA/MSSA (PCR - Final ABG Data ABG results: ABG 02/28/25 12:09 Specimen Type ART Sample Site R RADIAL pH 7.36 Bicarbonate Actual 17.8 L Total CO2 19 Base Excess -8 L O2 Saturation 91 L O2 % 21.0 ABG pCO2 31.4 L ABG pO2 62 L Harvey Test POSITIVE Vent Mode SPONT POC PEEP 5 POC Pressure Suppt 5 Blood Gas Notified Whom YOVANI Clinical Comments SBT X1 HR Radiography Diagnostic Testing: Radiology Impression KUB X-Ray 03/01/25 01:00 IMPRESSION: Limited exam, without significant interval change from the radiographs on 02/25/2025. Bowel loops are not well visualized. Reading Location: [id number] Rhythm Strip Rhythm Strip: Sinus Rhythm Rate: 104 Physical Exam Const alert and no apparent distress General Appearance: patient mechanically ventilated HEENT normocephalic and head/scalp atraumatic HEENT Narrative: Tracheostomy in place Eyes PERRL, EOMs intact bilaterally and conjunctivae normal Neck supple General: trachea midline Chest inspection of chest normal Resp Auscultation: diminished lung sounds; Negative for rales, rhonchi or wheezes Cardio regular rate and regular rhythm GI normal to inspection, nondistended, normoactive bowel sounds GI Narrative: PEG tube in place. Extremity General Extremity: edema; Negative for clubbing Skin Skin Narrative: Wrapped extremities. Neuro Neuro Narrative: Alert and able to follow simple commands. Charges/Coding Procedures Hospitalists Procedures: [id number] Critical Care 1st Hr
--- NOTE | 2025-03-02 08:06 | CASEMGMT ---
Addendum entered by Na Luna 03/02/25 08:18: Maximo from the LTACH reports that precert has now been started Original Note: 03/02 SBT documentation sent to [facility] at this time via [email or web address].
--- NOTE | 2025-03-02 09:21 | CASEMGMT ---
Updated progress notes and clinicals [facility] Maximo reports that the accepting MD today and through the weekend is Dr. Mejia.
[2025-03-02] MEDS: Chlorhexidine 15 ML PO ×2 (09:22→21:18)
[2025-03-02] MEDS: CHLORHEXIDINE GLUC 2% CLOTH 1 EACH TOWELETTE TOPICAL (09:23)
[2025-03-02] MEDS: Pantoprazole Sodium 40 MG in 0.9% Normal Saline (100mL MB+) 100 ML 330 MG IV (09:23)
--- NOTE | 2025-03-02 10:04 | CASEMGMT ---
Wound documentation and patient accounts specialist progress note [facility].
--- NOTE | 2025-03-02 10:42 | PN.HOSP_ITS ---
Subjective Subjective Trach and PEG, no issues overnight. She did fail her respiratory trial to get off the vent today. Will look at LTAC Objective Data Objective Data Vital Signs: Vital Signs Temp Pulse Resp BP Pulse Ox O2 Del Method O2 Flow Rate 97.8 F 94 17 159/72 H 96 Mechanical Ventilator 60 03/02/25 09:00 03/02/25 10:00 03/02/25 10:00 03/02/25 10:00 03/02/25 10:00 03/02/25 10:00 03/02/25 09:47 FiO2 21 03/02/25 10:00 Oxygen Flow Rate (L/min) 60 Oxygen Delivery Method Mechanical Ventilator Weight: 222 lb 14.197 oz Body Mass Index (BMI) 37.1 Intake & Output: Intake and Output for Last 24 Hours 03/01/25 03/02/25 03/03/25 03:59 03:59 03:59 Intake Total 390.29 / 390.29 110 / 110 110 / 110 Output Total 850 / 850 1615 / 1615 100 / 100 Balance -459.71 / -459.71 -1505 / -1505 Lab / Micro Data 03/02/25 06:00 03/02/25 06:00 Labs: Laboratory Results - last 24 hr 03/01/25 10:25: Sodium 142, Potassium 3.7, Chloride 101, Carbon Dioxide 12.3 L, Anion Gap 29 H, BUN 53 H, Creatinine 2.21 H, Estim Creat Clear Calc 25.59 L, Est GFR (MDRD) Non-Af 23 L, BUN/Creatinine Ratio 24.0 H, Glucose 160 H, Lactic Acid < 1.0, Calcium 8.6 03/01/25 11:23: POC Glucose 154 H 03/02/25 05:58: POC Glucose 139 H 03/02/25 06:00: WBC 11.1 H, RBC 4.12 L, Hgb 8.9 L, Hct 30.6 L, MCV 74.3 L, MCH 21.6 L, MCHC 29.1 L, RDW Std Deviation 52.1 H, RDW Coeff of Bulmaro 19.6 H, Plt Count 416, MPV 9.5, Immature Gran % (Auto) 0.500, Neut % (Auto) 78.9 H, Lymph % (Auto) 9.2 L, [place] % (Auto) 8.5, Eos % (Auto) 1.9, Baso % (Auto) 1.0, Absolute Neuts (auto) 8.8 H, Absolute Lymphs (auto) 1.02, Nucleated RBC % 0, Sodium 142, Potassium 3.6, Chloride 101, Carbon Dioxide 15.4 L, Anion Gap 25 H, BUN 36 H, C reatinine 1.67 H, Estim Creat Clear Calc 33.77 L, Est GFR (MDRD) Non-Af 32 L, B UN/Creatinine Ratio 21.3 H, Glucose 144 H, Calcium 9.2 Micro: Microbiology 02/05/25 12:15 Blood Culture (Wb) - Left Wrist Blood Culture - Final No growth in 5 days. 02/05/25 12:04 Blood Culture (Wb) - Right Hand Blood Culture - Final No growth in 5 days. 02/08/25 11:15 Sputum, Induced/Lukens Gram Stain - Final 02/08/25 11:15 Sputum, Induced/Lukens Respiratory Culture - Final Mixed normal respiratory dave. No Streptococcus pneumoniae, beta-hemolytic Streptococcus or Staphylococcus aureus isolated. 02/08/25 00:05 Stool Stool Occult Blood (TREVOR) - Final 02/05/25 11:20 Urine Catheter - Catheter Urine Culture - Final Presumptive E. coli 02/05/25 16:50 Nasal Secretion MRSA (PCR) - Final 02/05/25 16:50 Wound - Leg, Left Skin and Soft Tissue MRSA/MSSA (PCR - Final Rhythm Strip Rhythm Strip: Sinus Rhythm Rate: 104 Physical Exam Narrative General: Alert, cooperative, No apparent distress HEENT: Atraumatic, PERRLA, EOMI, Normocephalic Oral: Moist Mucosa Neck: Supple, No JVD, trach Lungs: Diminished, Normal air movement, No rhonchi, No wheeze, No rales Cardiovascular: Regular rate, Regular Rhythm, Normal S1, Normal S2, No murmurs Abdomen: Soft, Non Tender, Non-Distended, No Hepato-splenomegaly, PEG tube Extremities: Edema, Capillary Refill Less than 3 Seconds Skin: No rashes, No breakdown Musculoskeletal: No Tenderness to Palpation of Joints or Extremities Neurological: No focal neurological deficits, moves all extremities Psych/Mental Status: Flat Assessment & Plan Assessment/Plan (1) Respiratory failure: (2) Acute respiratory failure with hypoxia and hypercarbia: (3) Cellulitis of right anterior lower leg: PLAN: Plan #Acute hypoxic and hypercapnic respiratory failure due to acute exacerbation of combined heart failure * .Remains on minimal vent settings. * Has failed multiple continuous breathing trials. * Critical care on board. Titrate dopamine to maintain saturation above 90%. * Has had PEG tube inserted by GI. Had Trach inserted by ENT 2 days ago * failed spontaneous breathing trial again today 03/02/2025: She failed spontaneous breathing trial again today, this is her third therefore we will attempt pre-CERT for LTAC placement next week #Acute on chronic combined heart failure * On IV lasix. Also received metolazone * on carvedilol. * 2D echo as below. Cardiology on board. #Elevated troponin * Was thought to be due to demand ischemia and therefore likely type II non- STEMI * She does have a history of CAD s/p stents carvedilol was held due to fluid overload. Also on Imdur. * 2D echo showed EF of 15% with LV akinesia and regnial wall motion abnormalities. * cardiology on board. #ELIDA on CKD stage IV with anion gap metabolic acidosis * Nephrology on board. * Has required dialysis during this admission. Will monitor. * Cr is 2.21 today. management as per nephrology * Bicarb today is 12.3 and anion gap is 29. BUN is 53. Nephrology on board patient will require dialysis. #Type 2 diabetes mellitus: * Insulin sliding scale. Accu-Cheks every 6 hourly. * On tube feeds also on Lantus 35 units twice daily #Chronic iron deficiency anemia: Hemoglobin has remained stable. Will monitor. #RLE ulcer and cellulitis: stable. #History of CVA: on aspirin and high intensity statin #Depression and anxiety: on fluoxetine #Nutrition: PEG tube in situ. On tube feeds. DVT prophylaxis: heparin Charges/Coding Visit Charges Inpatient E&M: 70230 Subs Hosp L2
[2025-03-02] MEDS: Insulin Lispro 100 UNIT/ML INSULN.PEN SC (11:34)
[2025-03-02] MEDS: Insulin Glargine-YFGN 100 UNIT/ML Pen 10 UNIT SC (11:34)
[2025-03-02 11:54] LABS: Bedside Glucose 167 mg/dL (74-106)
--- NOTE | 2025-03-02 11:58 | PCM.PN.REN ---
Documented by User: WILLY Robbins 03/02/25 12:05 Subjective Subjective No overnight events. Objective Data Objective Data Vital Signs: Vital Signs Temp Pulse Resp BP Pulse Ox O2 Del Method O2 Flow Rate 97.8 F 92 19 H 144/65 H 94 Mechanical Ventilator 60 03/02/25 09:00 03/02/25 11:19 03/02/25 11:19 03/02/25 11:00 03/02/25 11:19 03/02/25 11:00 03/02/25 09:47 FiO2 21 03/02/25 11:19 Oxygen Flow Rate (L/min) 60 Oxygen Delivery Method Mechanical Ventilator Weight: 101.1 kg Body Mass Index (BMI) 37.1 Intake & Output: Intake and Output for Last 24 Hours 02/28/25 03/01/25 03/02/25 23:59 23:59 23:59 Intake Total 616.29 / 616.29 110 / 110 110 / 110 Output Total 350 / 850 2115 / 2115 345 / 345 Balance 266.29 / -233.71 -2004 / -2005 -235 / -235 Lab / Micro Data 03/02/25 06:00 03/02/25 06:00 Labs: Laboratory Results - last 24 hr 03/02/25 05:58: POC Glucose 139 H 03/02/25 06:00: WBC 11.1 H, RBC 4.12 L, Hgb 8.9 L, Hct 30.6 L, MCV 74.3 L, MCH 21.6 L, MCHC 29.1 L, RDW Std Deviation 52.1 H, RDW Coeff of Bulmaro 19.6 H, Plt Count 416, MPV 9.5, Immature Gran % (Auto) 0.500, Neut % (Auto) 78.9 H, Lymph % (Auto) 9.2 L, [place] % (Auto) 8.5, Eos % (Auto) 1.9, Baso % (Auto) 1.0, Absolute Neuts (auto) 8.8 H, Absolute Lymphs (auto) 1.02, Nucleated RBC % 0, Sodium 142, Potassium 3.6, Chloride 101, Carbon Dioxide 15.4 L, Anion Gap 25 H, BUN 36 H, Creatinine 1.67 H, Estim Creat Clear Calc 33.77 L, Est GFR (MDRD) Non-Af 32 L, BUN/Creatinine Ratio 21.3 H, Glucose 144 H, Calcium 9.2 03/02/25 11:33: POC Glucose 167 H Micro: Microbiology 02/05/25 12:15 Blood Culture (Wb) - Left Wrist Blood Culture - Final No growth in 5 days. 02/05/25 12:04 Blood Culture (Wb) - Right Hand Blood Culture - Final No growth in 5 days. 02/08/25 11:15 Sputum, Induced/Lukens Gram Stain - Final 02/08/25 11:15 Sputum, Induced/Lukens Respiratory Culture - Final Mixed normal respiratory dave. No Streptococcus pneumoniae, beta-hemolytic Streptococcus or Staphylococcus aureus isolated. 02/08/25 00:05 Stool Stool Occult Blood (TREVOR) - Final 02/05/25 11:20 Urine Catheter - Catheter Urine Culture - Final Presumptive E. coli 02/05/25 16:50 Nasal Secretion MRSA (PCR) - Final 02/05/25 16:50 Wound - Leg, Left Skin and Soft Tissue MRSA/MSSA (PCR - Final Rhythm Strip Rhythm Strip: Sinus Rhythm Rate: 104 Physical Exam Narrative On ventilator support s1s2 no murmurs Lungs sound clear anteriorly, no wheezing, no rales abdomen soft Edema bilateral legs, improved tunneled HD catheter dressing C/D/I Assessment & Plan Assessment/Plan (1) ELIDA (acute kidney injury): (2) Chronic kidney disease (CKD): QUALIFIERS: Chronic kidney disease stage: stage 4 (GFR 15-29) Qualified Code(s): N18.4 - Chronic kidney disease, stage 4 (severe) PLAN: Plan Impression/Plan: Patient is a 74-year-old female with past history of type 2 diabetes mellitus, hypertension, CAD, ischemic cardiomyopathy with HFrEF (EF 15%), pulmonary hypertension, stroke, and hyperlipidemia. Patient presents to the hospital on 02/05/2025 with 1 week history of progressively worsening dyspnea and lower extremity edema. Patient was admitted to the hospital for treatment of acute hypoxic respiratory failure requiring NIV. Nephrology is following for ELIDA on CKD. -Hypervolemia acute kidney injury superimposed on CKD stage IV. Baseline SCr 1.80 to 2.00 mg/dL prior to this admission. Suspect ELIDA is secondary to cardiorenal syndrome, initially patient did not respond well to IV diuresis and therefore was started on HD via tunneled HD catheter. Started dialysis 02/14/2025. Last HD 02/20--> then required HD 6/5 s/p Trach - yesterday renal function worsened, bicarbonate low 10 and 12 on repeat. significantly elevated anion gap. Lactate level ordered came back ok. ? starvation ketosis. due to worsening renal failure and acidosis patient had hemodialysis yesterday. Today serum creatinine 1.67, bicarb 15. No acute indication for COUNSELING AIDE today. Discharge planning in progress to [facility]. Assessment and plan reviewed with Dr. Moss. Documented by User: Dr. Roosevelt Moss MD 03/02/25 16:05 Objective Data Lab / Micro Data 03/02/25 06:00 03/02/25 06:00 Assessment & Plan Assessment/Plan (1) ELIDA (acute kidney injury): (2) Chronic kidney disease (CKD): QUALIFIERS: Chronic kidney disease stage: stage 4 (GFR 15-29) Qualified Code(s): N18.4 - Chronic kidney disease, stage 4 (severe) PLAN: Plan Impression/Plan: Patient is a 74-year-old female with past history of type 2 diabetes mellitus, hypertension, CAD, ischemic cardiomyopathy with HFrEF (EF 15%), pulmonary hypertension, stroke, and hyperlipidemia. Patient presents to the hospital on 02/05/2025 with 1 week history of progressively worsening dyspnea and lower extremity edema. Patient was admitted to the hospital for treatment of acute hypoxic respiratory failure requiring NIV. Nephrology is following for ELIDA on CKD. -Hypervolemia acute kidney injury superimposed on CKD stage IV. Baseline SCr 1.80 to 2.00 mg/dL prior to this admission. Suspect ELIDA is secondary to cardiorenal syndrome, initially patient did not respond well to IV diuresis and therefore was started on HD via tunneled HD catheter. Started dialysis 02/14/2025. Last HD 02/20--> then required HD 6/5 s/p Trach - yesterday renal function worsened, bicarbonate low 10 and 12 on repeat. significantly elevated anion gap. Lactate level ordered came back ok. ? starvation ketosis. due to worsening renal failure and acidosis patient had hemodialysis yesterday. Today serum creatinine 1.67, bicarb 15. No acute indication for COUNSELING AIDE today. Discharge planning in progress to [facility]. Assessment and plan reviewed with Dr. Moss. lily BONER MEAT cr at baseline dc to LTAC
[2025-03-02] MEDS: Menthol/Lanolin/Calamine/Znox 113 GM Tube 1 APPLIC TOPICAL ×2 (15:23→21:18)
--- NOTE | 2025-03-02 15:46 | CASEMGMT ---
Maximo from the LTACH reports that precert is still pending. Pt will need transport set up through [facility] once precert has been obtained. 03/02 Hospitalist and Nephro progress notes sent to the LT[facility] via [facility] at this time. Green sheet placed on chart to help facilitate potential weekend DC. Maximo denies further needs at this time.
--- NOTE | 2025-03-02 18:12 | PN_ITS ---
Progress Note Patient apparently has been having a lot of output from her PEG tube and still been having diarrhea stools. Physical Exam Narrative On ventilator support s1s2 no murmurs Lungs sound clear anteriorly, no wheezing, no rales abdomen soft Edema bilateral legs, improved tunneled HD catheter dressing C/D/I Assessment & Plan Assessment/Plan (1) Respiratory failure: (2) Acute respiratory failure with hypoxia and hypercarbia: (3) Cellulitis of right anterior lower leg: PLAN: Plan 74-year-old with multiple comorbidities including severe CHF, type II cardiogenic ischemia, acute hypoxic and hypercapnic respiratory failure due to CHF exacerbation and inability to wean off of the ventilator status post tracheostomy and PEG tube placement. Currently he is having a lot of output from her PEG tube and she is having bowel movements. The differential diagnosis of high Residuals and Diarrhea with PEG Tubes: * Delayed Gastric Emptying:?The stomach may not be emptying, leading to build-up and high residuals.? She will still make about 300 mL of bile a day and that bile can induce a bile induced diarrhea as well as produce high residuals and increased fluid out from her PEG tube. * Tube Position:?The tube might be in a location that does not allow for proper drainage of gastric contents and what * Medications: Certain medications can affect gastric emptying or cause diarrhea * Infection:?Infections, particularly in the GI tract, can lead to both diarrhea and delayed gastric emptying.?We will have to check stools for infection. Visit Charges Inpatient E&M: 67040 [facility] Hosp L3
--- NOTE | 2025-03-02 19:51 | CT_ITS ---
EXAM: CT Abdomen and Pelvis With Intravenous Contrast CLINICAL INDICATION: INCREASED GASTRIC OUTPUT TECHNIQUE: Axial computed tomography images of the abdomen and pelvis with intravenous contrast. This CT exam was performed using one or more of the following dose reduction techniques: automated exposure control, adjustment of the mA and/or kV according to patient size, and/or use of iterative reconstruction technique. Oral contrast was administered. COMPARISON: No relevant prior studies available. FINDINGS: ARTIFACTS: Attenuation artifacts. LUNG BASES: See below. PLEURAL SPACE: Bilateral pleural effusion with compressive atelectasis. ABDOMEN: LIVER: Fatty infiltration of the liver. GALLBLADDER AND BILE DUCTS: Unremarkable. No calcified stones. No ductal dilation. PANCREAS: Unremarkable. No mass. No ductal dilation. SPLEEN: Unremarkable. No splenomegaly. ADRENALS: Unremarkable. No mass. KIDNEYS AND URETERS: Unremarkable. No solid mass. No hydronephrosis. STOMACH AND BOWEL: Colonic diverticulosis without acute diverticulitis. No bowel obstruction. PELVIS: APPENDIX: No findings to suggest acute appendicitis. BLADDER: Unremarkable. No mass. REPRODUCTIVE: Unremarkable as visualized. ABDOMEN and PELVIS: INTRAPERITONEAL SPACE: Unremarkable. No free air. No significant fluid collection. BONES/JOINTS: No acute fracture. No dislocation. SOFT TISSUES: Unremarkable. VASCULATURE: Scattered calcified atherosclerotic disease of aorta. No abdominal aortic aneurysm. LYMPH NODES: Unremarkable. No enlarged lymph nodes. TUBES, LINES AND DEVICES: Moderately distended stomach with air-fluid levels. G-tube appears to be in place. CT/Abdomen/Pel W ORAL Cont Only IMPRESSION: 1. Moderately distended stomach with air-fluid levels. G-tube appears to be i n place. 2. Bilateral pleural effusion with compressive atelectasis. 3. Colonic diverticulosis without acute diverticulitis. Reading Location: [id number]
[2025-03-02 23:43] LABS: Bedside Glucose 165 mg/dL (74-106)
[2025-03-03] VITALS (36 sets, daily range): BP systolic 93–167; BP diastolic 47–94; PULSE 79–112; RESP 14–27; TEMP 36.2–37.1; O2SAT 90–100; BMI 37.0
[2025-03-03] MEDS: Menthol/Lanolin/Calamine/Znox 113 GM Tube 1 APPLIC TOPICAL ×3 (05:09→21:29)
[2025-03-03 05:11] LABS: Absolute Neutrophil Count 7.5 X10^3/uL (2.0-7.7); Eosinophil# 0.42 X10^3/uL; Eosinophils% 4.1 % (0-5); Hematocrit 30.3 % (37-47); Hemoglobin 8.9 g/dL (12.0-15.0); Lymphocyte % 11.7 % (19-41); Mean Corp Hgb Conc 29.4 g/dL (32-36); Mean Corpuscular Hgb 21.8 pg (27.0-32.0); Mean Corpuscular Volume 74.3 fL (81-99); Mean Platelet Vol. 9.1 fl (6.2-12.0); Monocyte# 1.02 X10^3/uL; NRBC Flagged by Analyzer 0 % (0-5); Neutrophil # 7.46 X10^3/uL (2.7-7.7); Neutrophil % 72.7 % (47-70); Platelet Count 365 K/mm3 (150-450); RBC Distribution Width CV 19.5 % (11.6-14.6); RBC Distribution Width SD 51.2 fl (35.1-43.9); Red Blood Count 4.08 M/mm3 (4.2-5.4); White Blood Count 10.3 K/mm3 (4.4-11.0)
[2025-03-03 05:53] LABS: Anion Gap 20 (5-15); BUN 45 mg/dL (4-19); Calcium,Total 9.2 mg/dL (7.6-11.0); Carbon Dioxide 18.1 mmol/L (21.0-32.0); Chloride 101 mmol/L (98-108); Creatinine, Serum 1.78 mg/dL (0.70-1.20); EST Glomerular Filtration Rate 29 (>60); Estimated Creatinine Clearance 31.67 ml/min (50-250); Glucose 159 mg/dL (70-99); Potassium 3.3 mmol/L (3.3-5.1); Sodium Level 140 mmol/L (133-145)
[2025-03-03] MEDS: CHLORHEXIDINE GLUC 2% CLOTH 1 EACH TOWELETTE TOPICAL (08:11)
[2025-03-03] MEDS: Pantoprazole Sodium 40 MG in 0.9% Normal Saline (100mL MB+) 100 ML 330 MG IV (08:30)
[2025-03-03] MEDS: Chlorhexidine 15 ML PO ×2 (08:30→21:28)
--- NOTE | 2025-03-03 08:52 | PCM.PN.TICU ---
Objective Data Objective Data Vital Signs: Vital Signs Last response Temperature 36.4 C L 03/03/25 04:00 Temperature Source Temporal 03/03/25 04:00 Pulse Rate 95 03/03/25 07:00 Pulse Strength Weak (1+) 03/02/25 20:48 Respiratory Rate 18 03/03/25 07:00 Respiratory Effort Mechanically Ventilated 03/03/25 04:00 Respiratory Depth Normal 03/03/25 04:00 Respiratory Pattern Normal 03/03/25 06:57 Blood Pressure 162/70 H 03/03/25 07:00 Blood Pressure Mean 100 03/03/25 07:00 Blood Pressure Source Monitor 03/03/25 07:00 Blood Pressure Position Semi-Fowlers 03/03/25 07:00 Blood Pressure Location Right Arm 03/03/25 07:00 Pulse Ox 93 03/03/25 07:00 Oxygen Delivery Method Mechanical Ventilator 03/03/25 07:00 Oxygen Flow Rate (L/min) 60 03/02/25 09:47 Fraction of Inspired Oxygen (FIO2) 21 03/03/25 07:00 I&O: I&O Last 24 Hours 03/02/25 03/02/25 03/03/25 11:59 23:59 11:59 Intake Total 110 / 110 Output Total 345 / 920 275 / 920 450 / 450 Balance -235 / -810 -275 / -810 -450 / -450 I&O: Total Stay 02/05/25 09:43 thru 03/03/25 06:56 Intake Total 95865.91 Output Total 95723 Balance -92931.09 Current Meds Ordered / Administered: Current meds ordered / Administered Generic Name Dose Route Start Last Admin Trade Name Freq PRN Reason Stop Dose Admin Acetaminophen 650 mg 02/05/25 13:41 02/07/25 23:29 Acetaminophen 325 Mg Tablet PO 650 mg Q6H PRN PRN Administration Pain 1-10 Or Fever >100.7 Albuterol Sulfate 2.5 mg 02/22/25 11:14 Albuterol 2.5 Mg/3 Ml Vial.Neb. INHALATION Q8H.RT PRN WHEEZING OR COUGH Aspirin 81 mg 02/27/25 08:00 03/03/25 08:08 Aspirin 81 Mg Tab.Chew GT Not Given BREAKFAST PARMINDER Atorvastatin Calcium 40 mg 02/05/25 22:00 03/02/25 21:19 Atorvastatin Calcium 40 Mg Tablet PO Not Given QHS [facility] Calamine/Phenol 1 applic 02/11/25 22:00 03/03/25 05:09 Menthol/Lanolin/Calamine/Znox 113 Gm Tube TOPICAL 1 applic TID PARMINDER Administration Protocol Carvedilol 6.25 mg 02/05/25 19:30 03/03/25 08:08 Carvedilol 6.25 Mg Tablet PO Not Given BIDCM [facility] Protocol Chlorhexidine Gluconate 15 ml 02/10/25 10:00 03/03/25 08:30 Chlorhexidine 15 Ml PO 15 ml BID PARMINDER Administration Chlorhexidine Gluconate 1 each 02/13/25 10:00 03/03/25 08:11 Chlorhexidine Gluc 2% Cloth 1 Each Towelette TOPICAL 1 each DAILY PARMINDER Administration Fentanyl Citrate 50 mcg 02/11/25 11:33 Fentanyl 100 Mcg/2 Ml Ampul IV Q1H PRN PRN CPOT score > 3 Fluoxetine HCl 10 mg 02/06/25 10:00 03/03/25 08:10 Fluoxetine 10 Mg Capsule PO Not Given DAILY [facility] Guaifenesin 10 ml 02/10/25 14:00 03/03/25 05:10 Guaifenesin 10 Ml Udc (200mg/10ml) NG Not Given Q8H [facility] Heparin Sodium (Porcine) 5,000 unit 02/08/25 14:00 02/13/25 22:45 Heparin Injection (Vial) 5,000 Unit/Ml Vial SC Not Given Q8 [facility] Hydralazine HCl 10 mg 02/06/25 08:30 03/03/25 05:09 Hydralazine 10 Mg Tablet PO Not Given TID [facility] Protocol Sodium Chloride 250 mls @ 15 mls/hr 02/05/25 16:53 02/23/25 12:38 IV Infused .[id number] PRN Infusion Saline Flush Sodium Chloride 250 mls @ 15 mls/hr 02/05/25 16:53 IV .[id number] PRN Additional IVPB Infusion Pantoprazole Sodium 40 mg/ 110 mls @ 330 mls/hr 02/08/25 12:30 03/03/25 08:30 Sodium Chloride IV 330 mls/hr Q24 PARMINDER Administration Dextrose 125 mls @ 999 mls/hr 02/21/25 12:24 02/26/25 06:36 Dextrose 10%-Water IV Infused .Q8M PRN Infusion HYPOGLYCEMIA Enteral Nutritional Formula 1,000 mls @ 60 mls/hr 02/28/25 12:30 03/03/25 06:28 Vital High Protein GT Not Given .[id number] [facility] Insulin Glargine 10 unit 02/26/25 10:00 03/03/25 08:09 Insulin Glargine-Yfgn 100 Unit/Ml Pen SC Not Given BID [facility] Insulin Human Lispro 0 unit 02/16/25 12:00 03/03/25 05:10 Insulin Lispro 100 Unit/Ml Insuln.Pen SC Not Given Q6 [facility] Protocol Isosorbide Dinitrate 5 mg 02/06/25 10:00 03/03/25 08:10 Isosorbide Dn 10 Mg Tablet PO Not Given BID [facility] Protocol Multi-Ingredient Ointment 1 applic 02/21/25 10:26 02/21/25 18:45 Mineral Oil/Petrolatum Cr 1.75oz Bottle TOPICAL 1 applic 4X/DAY PRN PRN Administration Dry Lips Protocol Polyethylene Glycol 17 gm 02/24/25 10:00 03/03/25 08:10 Polyethylene Glycol 3350 17 Gm Packet PO Not Given BID PARMINDER Senna/Docusate Sodium 2 tablet 02/07/25 10:00 03/03/25 08:10 Senna/Docusate Sodium 1 Tablet PO Not Given BID [facility] Sodium Chloride 10 - 40 ml 02/05/25 16:13 03/01/25 14:31 0.9% Saline Lock 10 Ml Syringe IV 20 ml UD PRN Administration SALINE FLUSH Lab / Micro Data 03/03/25 04:25 03/03/25 04:25 Labs: Laboratory Results - last 24 hr 03/02/25 11:33: POC Glucose 167 H 03/02/25 23:21: POC Glucose 165 H 03/03/25 04:25: WBC 10.3, RBC 4.08 L, Hgb 8.9 L, Hct 30.3 L, MCV 74.3 L, MCH 21.8 L, MCHC 29.4 L, RDW Std Deviation 51.2 H, RDW Coeff of Bulmaro 19.5 H, Plt Count 365, MPV 9.1, Immature Gran % (Auto) 0.500, Neut % (Auto) 72.7 H, Lymph % (Auto) 11.7 L, [place] % (Auto) 10.0, Eos % (Auto) 4.1, Baso % (Auto) 1.0, Absolute Neuts (auto) 7.5, Absolute Lymphs (auto) 1.20, Nucleated RBC % 0, Sodium 140, Potassium 3.3, Chloride 101, Carbon Dioxide 18.1 L, Anion Gap 20 H, BUN 45 H, Creatinine 1.78 H, Estim Creat Clear Calc 31.67 L, Est GFR (MDRD) Non-Af 29 L, BUN/Creatinine Ratio 25.0 H, Glucose 159 H, Calcium 9.2 Micro: Microbiology 03/02/25 20:05 Stool Stool Lactoferrin - Final 03/02/25 20:05 Stool C. difficile GDH Antigen & Toxins - Final 03/02/25 20:05 Stool Clostridioides difficile (PCR) - Final Rhythm Strip Rhythm Strip: Sinus Rhythm Rate: 104 Imaging Radiology Impression Abdomen CT 03/02/25 19:51 IMPRESSION: 1. Moderately distended stomach with air-fluid levels. G-tube appears to be in place. 2. Bilateral pleural effusion with compressive atelectasis. 3. Colonic diverticulosis without acute diverticulitis. Reading Location: [facility] Assessment and Plan . Assessment and plan: Subjective: No acute events o/n. Physical Exam: Gen - NAD, obese HEENT - MMM. Trach in place Resp - Diminished BS. Mechanically ventilated CV - RRR. No m/g/r Abd - Soft, NT, +distension Ext - No c/c/e Skin - No rashes? Neuro - Awake, follows commands I have reviewed the pertinent vital sign, laboratory, and imaging data. ASSESSMENT: # Acute hypoxic and hypercapneic respiratory failure ? intubated 02/08. s/p tracheostomy 02/27 # CHF exacerbation ? EF 15% # Sepsis # Presumptive E coli UTI # ELIDA on CKD - requiring HD initiation # Possible C diff colitis - PCR positive, toxin negative. However with ongoing diarrhea despite holding TF for several days, abd distension, intolerance of TF # h/o CVA # DM # Anemia # Depression/anxiety # Morbid obesity PLAN: -Cont VC vent 450/14/5/21%. Follow ABG/CXR intermittently -Cont PS trials as tolerated, still failing d/t low Vt/tachypnea -Nephrology following, monitor Cr, UOP. s/p several sessions of HD earlier and diuresis -Although C diff toxin negative given significant GI symptoms will cover empirically for C diff colitis with IV flagyl, vancomycin enemas for now in case of false negative result. f/u additional GI recs regarding this -s/p abx for UTI -Follow CBC -Replete electrolytes PRN -TF has been on hold d/t vomiting, leakage around G-tube. GI service aware by report, and possible plan for GJ tube FEN/GI: NPO Proph DVT/GI: SQ heparin, protonix Critical Care Time: 50 mins The entirety of this encounter was done via telemedicine using both audio and video. Consent was unable to be obtained for the telemedicine encounter due to the patient's mental status.
[2025-03-03 09:06] LABS: Bedside Glucose 145 mg/dL (74-106)
--- NOTE | 2025-03-03 09:16 | PN.HOSP_ITS ---
Subjective Subjective No new issues overnight, continue to have some nausea and vomiting issues. Objective Data Objective Data Vital Signs: Vital Signs Temp Pulse Resp BP Pulse Ox O2 Del Method O2 Flow Rate 97.5 F L 97 19 H 166/67 H 92 Mechanical Ventilator 60 03/03/25 04:00 03/03/25 09:08 03/03/25 09:08 03/03/25 08:00 03/03/25 09:08 03/03/25 08:00 03/02/25 09:47 FiO2 21 03/03/25 09:08 Oxygen Flow Rate (L/min) 60 Oxygen Delivery Method Mechanical Ventilator Weight: 222 lb 10.67 oz Body Mass Index (BMI) 37.0 Intake & Output: Intake and Output for Last 24 Hours 03/02/25 03/03/25 03/04/25 03:59 03:59 03:59 Intake Total 110 / 110 110 / 110 Output Total 1615 / 1615 920 / 920 150 / 150 Balance -1505 / -1505 -810 / -810 -150 / -150 Lab / Micro Data 03/03/25 04:25 03/03/25 04:25 Labs: Laboratory Results - last 24 hr 03/02/25 11:33: POC Glucose 167 H 03/02/25 23:21: POC Glucose 165 H 03/03/25 04:25: WBC 10.3, RBC 4.08 L, Hgb 8.9 L, Hct 30.3 L, MCV 74.3 L, MCH 21.8 L, MCHC 29.4 L, RDW Std Deviation 51.2 H, RDW Coeff of Bulmaro 19.5 H, Plt Count 365, MPV 9.1, Immature Gran % (Auto) 0.500, Neut % (Auto) 72.7 H, Lymph % (Auto) 11.7 L, [place] % (Auto) 10.0, Eos % (Auto) 4.1, Baso % (Auto) 1.0, Absolute Neuts (auto) 7.5, Absolute Lymphs (auto) 1.20, Nucleated RBC % 0, Sodium 140, Potassium 3.3, Chloride 101, Carbon Dioxide 18.1 L, Anion Gap 20 H, BUN 45 H, C reatinine 1.78 H, Estim Creat Clear Calc 31.67 L, Est GFR (MDRD) Non-Af 29 L, B UN/Creatinine Ratio 25.0 H, Glucose 159 H, Calcium 9.2 03/03/25 05:08: POC Glucose 145 H Micro: Microbiology 03/02/25 20:05 Stool Stool Lactoferrin - Final 03/02/25 20:05 Stool C. difficile GDH Antigen & Toxins - Final 03/02/25 20:05 Stool Clostridioides difficile (PCR) - Final 02/05/25 12:15 Blood Culture (Wb) - Left Wrist Blood Culture - Final No growth in 5 days. 02/05/25 12:04 Blood Culture (Wb) - Right Hand Blood Culture - Final No growth in 5 days. 02/08/25 11:15 Sputum, Induced/Lukens Gram Stain - Final 02/08/25 11:15 Sputum, Induced/Lukens Respiratory Culture - Final Mixed normal respiratory dave. No Streptococcus pneumoniae, beta-hemolytic Streptococcus or Staphylococcus aureus isolated. 02/08/25 00:05 Stool Stool Occult Blood (TREVOR) - Final 02/05/25 11:20 Urine Catheter - Catheter Urine Culture - Final Presumptive E. coli 02/05/25 16:50 Nasal Secretion MRSA (PCR) - Final 02/05/25 16:50 Wound - Leg, Left Skin and Soft Tissue MRSA/MSSA (PCR - Final Radiography Diagnostic Testing: Radiology Impression Abdomen CT 03/02/25 19:51 IMPRESSION: 1. Moderately distended stomach with air-fluid levels. G-tube appears to be in place. 2. Bilateral pleural effusion with compressive atelectasis. 3. Colonic diverticulosis without acute diverticulitis. Reading Location: [facility] Rhythm Strip Rhythm Strip: Sinus Rhythm Rate: 104 Physical Exam Narrative General: Alert, cooperative, No apparent distress HEENT: Atraumatic, PERRLA, EOMI, Normocephalic Oral: Moist Mucosa Neck: Supple, No JVD, trach Lungs: Diminished, Normal air movement, No rhonchi, No wheeze, No rales Cardiovascular: Regular rate, Regular Rhythm, Normal S1, Normal S2, No murmurs Abdomen: Soft, Non Tender, Non-Distended, No Hepato-splenomegaly, PEG tube Extremities: Edema, Capillary Refill Less than 3 Seconds Skin: No rashes, No breakdown Musculoskeletal: No Tenderness to Palpation of Joints or Extremities Neurological: No focal neurological deficits, moves all extremities Psych/Mental Status: Flat Assessment & Plan Assessment/Plan (1) Respiratory failure: (2) Acute respiratory failure with hypoxia and hypercarbia: (3) Cellulitis of right anterior lower leg: PLAN: Plan #Acute hypoxic and hypercapnic respiratory failure due to acute exacerbation of combined heart failure * .Remains on minimal vent settings. * Has failed multiple continuous breathing trials. * Critical care on board. Titrate dopamine to maintain saturation above 90%. * Has had PEG tube inserted by GI. Had Trach inserted by ENT 2 days ago * failed spontaneous breathing trial again today 03/02/2025: She failed spontaneous breathing trial again today, this is her third therefore we will attempt pre-CERT for LTAC placement next week 03/03/2025: She has a PEG tube in place however tube feeds are stopped because she continues to have high residuals and nausea and vomiting. The GI is aware and may need to do a GJ tube. Continue with Zofran may also benefit from some Reglan if GI agrees #Acute on chronic combined heart failure * On IV lasix. Also received metolazone * on carvedilol. * 2D echo as below. Cardiology on board. #Elevated troponin * Was thought to be due to demand ischemia and therefore likely type II non- STEMI * She does have a history of CAD s/p stents carvedilol was held due to fluid overload. Also on Imdur. * 2D echo showed EF of 15% with LV akinesia and regnial wall motion abnormalities. * cardiology on board. #ELIDA on CKD stage IV with anion gap metabolic acidosis * Nephrology on board. * Has required dialysis during this admission. Will monitor. * Cr is 2.21 today. management as per nephrology * Bicarb today is 12.3 and anion gap is 29. BUN is 53. Nephrology on board patient will require dialysis. 03/03/2025: Renal function appears to be back to baseline #Type 2 diabetes mellitus: * Insulin sliding scale. Accu-Cheks every 6 hourly. * On tube feeds also on Lantus 35 units twice daily #Chronic iron deficiency anemia: Hemoglobin has remained stable. Will monitor. #RLE ulcer and cellulitis: stable. #History of CVA: on aspirin and high intensity statin #Depression and anxiety: on fluoxetine #Nutrition: PEG tube in situ. On tube feeds. 03/03/2025: Tube feeds have been halted secondary to high residuals and nausea and vomiting DVT: heparin Charges/Coding Visit Charges Inpatient E&M: 60718 Subs Hosp L2
[2025-03-03] MEDS: Vancomycin HCl 500 MG, Sodium Chloride Irrig Solution 90 ML RC (11:43)
[2025-03-03] MEDS: Insulin Lispro 100 UNIT/ML INSULN.PEN SC ×2 (12:05→18:08)
--- NOTE | 2025-03-03 15:12 | PN.RENAL_ITS ---
Subjective Subjective Follow-up on acute kidney injury. The patient remains in ICU setting. She was dialyzed day before yesterday. Currently on ventilator, awake and makes eye contact. Hemodynamically stable Objective Data Objective Data Vital Signs: Vital Signs Temp Pulse Resp BP Pulse Ox O2 Del Method O2 Flow Rate 97.4 F L 107 H 17 167/94 H 95 Mechanical Ventilator 60 03/03/25 12:00 03/03/25 15:04 03/03/25 15:04 03/03/25 15:00 03/03/25 15:04 03/03/25 15:00 03/02/25 09:47 FiO2 21 03/03/25 15:04 Oxygen Flow Rate (L/min) 60 Oxygen Delivery Method Mechanical Ventilator Weight: 101 kg Body Mass Index (BMI) 37.0 Intake & Output: Intake and Output for Last 24 Hours 03/01/25 03/02/25 03/03/25 23:59 23:59 23:59 Intake Total 110 / 110 110 / 110 110 / 110 Output Total 2115 / 2115 620 / 920 635 / 635 Balance -2005 / -2005 -510 / -810 -525 / -525 Lab / Micro Data Attestation: I reviewed the patient's lab results. 03/03/25 04:25 03/03/25 04:25 Labs: Laboratory Results - last 24 hr 03/02/25 23:21: POC Glucose 165 H 03/03/25 04:25: WBC 10.3, RBC 4.08 L, Hgb 8.9 L, Hct 30.3 L, MCV 74.3 L, MCH 21.8 L, MCHC 29.4 L, RDW Std Deviation 51.2 H, RDW Coeff of Bulmaro 19.5 H, Plt Count 365, MPV 9.1, Immature Gran % (Auto) 0.500, Neut % (Auto) 72.7 H, Lymph % (Auto) 11.7 L, [place] % (Auto) 10.0, Eos % (Auto) 4.1, Baso % (Auto) 1.0, Absolute Neuts (auto) 7.5, Absolute Lymphs (auto) 1.20, Nucleated RBC % 0, Sodium 140, Potassium 3.3, Chloride 101, Carbon Dioxide 18.1 L, Anion Gap 20 H, BUN 45 H, C reatinine 1.78 H, Estim Creat Clear Calc 31.67 L, Est GFR (MDRD) Non-Af 29 L, B UN/Creatinine Ratio 25.0 H, Glucose 159 H, Calcium 9.2 03/03/25 05:08: POC Glucose 145 H Micro: Microbiology 03/02/25 20:05 Stool Stool Lactoferrin - Final 03/02/25 20:05 Stool Enteric Bacteriology - Final 03/02/25 20:05 Stool C. difficile GDH Antigen & Toxins - Final 03/02/25 20:05 Stool Clostridioides difficile (PCR) - Final 02/05/25 12:15 Blood Culture (Wb) - Left Wrist Blood Culture - Final No growth in 5 days. 02/05/25 12:04 Blood Culture (Wb) - Right Hand Blood Culture - Final No growth in 5 days. 02/08/25 11:15 Sputum, Induced/Lukens Gram Stain - Final 02/08/25 11:15 Sputum, Induced/Lukens Respiratory Culture - Final Mixed normal respiratory dave. No Streptococcus pneumoniae, beta-hemolytic Streptococcus or Staphylococcus aureus isolated. 02/08/25 00:05 Stool Stool Occult Blood (TREVOR) - Final 02/05/25 11:20 Urine Catheter - Catheter Urine Culture - Final Presumptive E. coli 02/05/25 16:50 Nasal Secretion MRSA (PCR) - Final 02/05/25 16:50 Wound - Leg, Left Skin and Soft Tissue MRSA/MSSA (PCR - Final Radiography Diagnostic Testing: Radiology Impression Abdomen CT 03/02/25 19:51 IMPRESSION: 1. Moderately distended stomach with air-fluid levels. G-tube appears to be in place. 2. Bilateral pleural effusion with compressive atelectasis. 3. Colonic diverticulosis without acute diverticulitis. Reading Location: [facility] Rhythm Strip Rhythm Strip: Sinus Rhythm Rate: 104 Physical Exam Const Orientation / Consciousness: lethargic Nutritional Appearance: obese HEENT normocephalic Head and Scalp: atraumatic Neck no lymphadenopathy Resp Auscultation: rhonchi Cardio regular rate GI non-tender Skin no rashes or lesions noted Neuro Sensorium / Orientation: lethargic Psych Memory / Cognition: cognition impaired Assessment & Plan Assessment/Plan (1) ELIDA (acute kidney injury): PLAN: Patient has been hemodialysis dependent since February 14. So far there is no renal recovery. Will plan dialyzing her on Wednesday
[2025-03-03] MEDS: hydrALAZINE 20 MG/ML Vial 10 MG IV (16:27)
[2025-03-03] MEDS: metroNIDAZOLE 500 MG/100 ML BAG 100 MG IV (18:08)
[2025-03-03 18:34] LABS: Bedside Glucose 165 mg/dL (74-106)
--- NOTE | 2025-03-03 19:00 | PN_ITS ---
Progress Note Patient has been having diarrhea and still having vomiting. History is from nursing. Physical Exam Narrative On ventilator support s1s2 no murmurs Lungs sound clear anteriorly, no wheezing, no rales abdomen soft Edema bilateral legs, improved tunneled HD catheter dressing C/D/I Assessment & Plan Assessment/Plan (1) Respiratory failure: (2) Acute respiratory failure with hypoxia and hypercarbia: (3) Cellulitis of right anterior lower leg: PLAN: Plan 74-year-old with multiple comorbidities including severe CHF, type II cardiogenic ischemia, acute hypoxic and hypercapnic respiratory failure due to CHF exacerbation and inability to wean off of the ventilator status post tracheostomy and PEG tube placement. Currently he is having a lot of output from her PEG tube and she is having bowel movements. The differential diagnosis of high Residuals and Diarrhea with PEG Tubes: * Delayed Gastric Emptying:?The stomach may not be emptying, leading to build-up and high residuals.? She will still make about 300 mL of bile a day and that bile can induce a bile induced diarrhea as well as produce high residuals and increased fluid out from her PEG tube. * Tube Position:?The tube might be in a location that does not allow for proper drainage of gastric contents and what * Medications: Certain medications can affect gastric emptying or cause diarrhea * Infection:?Infections, particularly in the GI tract, can lead to both diarrhea and delayed gastric emptying.?We will have to check stools for infection. 03/03/2025- Stool Lactoferrin/WBC Final 03/02/25-2143 Fecal WBC Lactoferrin Positive: Fecal WBC Lactoferrin present Normal Reference Range = Negative ENTERIC PATHOGEN PANEL STOOL Final 03/03/25-1036 CAMPYLOBACTER Not Detected Salmonella Not Detected Shigella sp. Not Detected Shiga Toxin Not Detected Yersinia Not Detected VIBRIO Not Detected Norovirus Not Detected Rotavirus Not Detected Normal Reference Range = Not Detected Nucleic acid amplification test method Not detected for Campylobacter group, Salmonella species, Shigella species, Vibrio Group, Yersinia enterocolitica, EHEC (Shiga Toxin 1, Shiga Toxin 2), Norovirus Gl/Gll, and Rotavirus A. Other common stool pathogens are not detected on this panel include: Aeromonas/Plesiomonas or parasites. Order testing for these organisms separately if suspected. This is an amplified DNA test which makes it both specific and sensitive. Clostridioides Diff Toxin/Ag Final 03/02/25-2307 C. diff Ag Positive C. diff A/B Antigen C. diff Toxin Negative C. diff Toxin Interpretation of C. diff by EIA Method POS for Antigen and NEG for Toxin = Positive for toxigenic C. Difficile gene but the active toxin production NOT detected. May be a colonized carrier or toxin level is below limit of detection. CDIFF (PCR) Final 03/02/25-2237 C. Diff PCR Positive-Toxigenic C. Difficile Detected 027 027 NAP1-B1 Presumptive Negative *for epidemiolologic?use A positive C. difficile molecular test does not differentiate between an active C. difficile infection and C. difficile colonization. Use clinical judgement and paired toxin/antigen testing to identify true infection and need for treatment. Reference Range: Negative [employer] GeneXpert: polymerase chain reaction (PCR) I agree with treating her for C. difficile colitis. The plan for her would likely be conversion to a GJ tube on 03/05/2025 as it looks like she will still be here due to some other ongoing issues. Visit Charges Inpatient E&M: 89180 Subs Hosp L3
[2025-03-03 20:37] LABS: Hematocrit 34.1 % (37-47)
[2025-03-03 21:09] LABS: Bedside Glucose 162 mg/dL (74-106)
[2025-03-03] MEDS: 0.9% Saline Lock 10 ML Syringe IV (21:30)
[2025-03-04] VITALS (39 sets, daily range): BP systolic 121–163; BP diastolic 48–115; PULSE 84–142; RESP 14–28; TEMP 36.7–37.4; O2SAT 90–100; BMI 37.2
[2025-03-04] MEDS: metroNIDAZOLE 500 MG/100 ML BAG 100 MG IV ×5 (00:32→23:42)
[2025-03-04 00:49] LABS: Bedside Glucose 141 mg/dL (74-106)
[2025-03-04] MEDS: Menthol/Lanolin/Calamine/Znox 113 GM Tube 1 APPLIC TOPICAL ×3 (05:02→21:29)
[2025-03-04 05:18] LABS: Absolute Lymphocyte Count 1.12 X10^3/uL (0.83-4.51); Basophil# 0.14 X10^3/uL; Basophil% 1.5 % (0-1); Eosinophil# 0.33 X10^3/uL; Eosinophils% 3.5 % (0-5); Hematocrit 31.1 % (37-47); Hemoglobin 9.2 g/dL (12.0-15.0); Lymphocyte # 1.12 X10^3/ul (0.83-4.51); Lymphocyte % 11.8 % (19-41); Mean Corp Hgb Conc 29.6 g/dL (32-36); Mean Corpuscular Hgb 21.5 pg (27.0-32.0); Mean Corpuscular Volume 72.8 fL (81-99); Mean Platelet Vol. 9.2 fl (6.2-12.0); Monocyte# 0.88 X10^3/uL; Monocyte% 9.2 % (0-10); NRBC Flagged by Analyzer 0 % (0-5); Neutrophil # 7.02 X10^3/uL (2.7-7.7); Neutrophil % 73.6 % (47-70); Platelet Count 330 K/mm3 (150-450); RBC Distribution Width CV 19.7 % (11.6-14.6); RBC Distribution Width SD 50.4 fl (35.1-43.9); Red Blood Count 4.27 M/mm3 (4.2-5.4); White Blood Count 9.5 K/mm3 (4.4-11.0)
[2025-03-04 05:39] LABS: Anion Gap 18 (5-15); BUN 49 mg/dL (4-19); BUN/Creat Ratio 28.8 RATIO (10-20); Calcium,Total 9.2 mg/dL (7.6-11.0); Carbon Dioxide 21.1 mmol/L (21.0-32.0); Chloride 103 mmol/L (98-108); EST Glomerular Filtration Rate 31 (>60); Estimated Creatinine Clearance 33.16 ml/min (50-250); Glucose 142 mg/dL (70-99); Potassium 3.2 mmol/L (3.3-5.1); Sodium Level 142 mmol/L (133-145)
--- NOTE | 2025-03-04 06:09 | PN.HOSP_ITS ---
Subjective Subjective No issues overnight. She continues to have loose stools and has a fecal management system in place, critical care yesterday felt that the C. difficile testing was a false negative and therefore initially recommended rectal vancomycin however this was not able to be done appropriately so she was started on IV Flagyl. Of note she is also been having some vaginal bleeding, Perez was placed and she does not have hematuria Objective Data Objective Data Vital Signs: Vital Signs Temp Pulse Resp BP Pulse Ox O2 Del Method O2 Flow Rate 99.2 F H 90 14 1351/70 H 94 Mechanical Ventilator 60 03/04/25 05:00 03/04/25 05:13 03/04/25 05:13 03/04/25 05:00 03/04/25 05:13 03/04/25 05:00 03/02/25 09:47 FiO2 21 03/04/25 05:13 Oxygen Flow Rate (L/min) 60 Oxygen Delivery Method Mechanical Ventilator Weight: 222 lb 10.67 oz Body Mass Index (BMI) 37.0 Intake & Output: Intake and Output for Last 24 Hours 03/03/25 03/04/25 03/05/25 03:59 03:59 03:59 Intake Total 110 / 110 210 / 210 200 / 200 Output Total 920 / 920 535 / 535 Balance -810 / -810 -325 / -325 200 / 200 Lab / Micro Data 03/04/25 05:02 03/04/25 05:02 Labs: Laboratory Results - last 24 hr 03/03/25 05:08: POC Glucose 145 H 03/03/25 11:38: POC Glucose 162 H 03/03/25 18:07: POC Glucose 165 H 03/03/25 20:10: Hgb 10.0 L, Hct 34.1 L 03/04/25 00:31: POC Glucose 141 H 03/04/25 05:02: WBC 9.5, RBC 4.27, Hgb 9.2 L, Hct 31.1 L, MCV 72.8 L, MCH 21.5 L , MCHC 29.6 L, RDW Std Deviation 50.4 H, RDW Coeff of Bulmaro 19.7 H, Plt Count 330, MPV 9.2, Immature Gran % (Auto) 0.400, Neut % (Auto) 73.6 H, Lymph % (Auto) 11.8 L, [place] % (Auto) 9.2, Eos % (Auto) 3.5, Baso % (Auto) 1.5 H, Absolute Neuts (auto) 7.0, Absolute Lymphs (auto) 1.12, Nucleated RBC % 0, Sodium 142, P otassium 3.2 L, Chloride 103, Carbon Dioxide 21.1, Anion Gap 18 H, BUN 49 H, C reatinine 1.70 H, Estim Creat Clear Calc 33.16 L, Est GFR (MDRD) Non-Af 31 L, B UN/Creatinine Ratio 28.8 H, Glucose 142 H, Calcium 9.2 Micro: Microbiology 03/02/25 20:05 Stool Stool Lactoferrin - Final 03/02/25 20:05 Stool Enteric Bacteriology - Final 03/02/25 20:05 Stool C. difficile GDH Antigen & Toxins - Final 03/02/25 20:05 Stool Clostridioides difficile (PCR) - Final 02/05/25 12:15 Blood Culture (Wb) - Left Wrist Blood Culture - Final No growth in 5 days. 02/05/25 12:04 Blood Culture (Wb) - Right Hand Blood Culture - Final No growth in 5 days. 02/08/25 11:15 Sputum, Induced/Lukens Gram Stain - Final 02/08/25 11:15 Sputum, Induced/Lukens Respiratory Culture - Final Mixed normal respiratory dave. No Streptococcus pneumoniae, beta-hemolytic Streptococcus or Staphylococcus aureus isolated. 02/08/25 00:05 Stool Stool Occult Blood (TREVOR) - Final 02/05/25 11:20 Urine Catheter - Catheter Urine Culture - Final Presumptive E. coli 02/05/25 16:50 Nasal Secretion MRSA (PCR) - Final 02/05/25 16:50 Wound - Leg, Left Skin and Soft Tissue MRSA/MSSA (PCR - Final Rhythm Strip Rhythm Strip: Sinus Rhythm Rate: 104 Physical Exam Narrative General: Alert, cooperative, No apparent distress HEENT: Atraumatic, PERRLA, EOMI, Normocephalic Oral: Moist Mucosa Neck: Supple, No JVD, trach Lungs: Diminished, Normal air movement, No rhonchi, No wheeze, No rales Cardiovascular: Regular rate, Regular Rhythm, Normal S1, Normal S2, No murmurs Abdomen: Soft, Non Tender, Non-Distended, No Hepato-splenomegaly, PEG tube Extremities: Edema, Capillary Refill Less than 3 Seconds Skin: No rashes, No breakdown Musculoskeletal: No Tenderness to Palpation of Joints or Extremities Neurological: No focal neurological deficits, moves all extremities Psych/Mental Status: Flat Assessment & Plan Assessment/Plan (1) Respiratory failure: (2) Acute respiratory failure with hypoxia and hypercarbia: (3) Cellulitis of right anterior lower leg: PLAN: Plan 1. Acute hypoxic and hypercapnic respiratory failure secondary to acute on chronic combined CHF exacerbation ? She had been aggressively diuresed on Lasix drip however developed increasing BUN therefore nephrology was consulted and she had a tunneled dialysis catheter placed and was started on dialysis ? Minimal urine output, will continue with dialysis on Wednesday ? Because of respiratory failure she was unable to be weaned from the vent so she had a trach and PEG, PEG was placed on 02/21/2025 and trach was done on 02/27/2025 ? She has been unable to wean from the vent so will need to go to LTAC ? She has been unable to tolerate tube feeds and her tube feeds are currently on hold with recurrent issues with nausea vomiting and high residuals, gastroenterology plans to convert to a GJ tube on 02/02/2025 ? Echocardiogram with an EF of 15% and left ventricular akinesia and regional wall motion abnormality 2. CAD status post stents/essential HTN/HLD/history of CVA ? She cannot take anything orally at the moment and she was having episodes of SVT overnight, will continue with Lopressor 5 mg IV every 6 as needed ? Will also continue with IV hydralazine as needed ? Can resume aspirin and Lipitor once able to tolerate tube feeds again at that point we can also restart her Coreg ? Elevated troponins were due to demand ischemia 3. DM2/ELIDA on CKD 4 ? Renal functions much improved with dialysis ? Sliding scale insulin every 6 ? Had to decrease her Lantus initially although down to 10 units twice daily and then when she developed nausea and residuals that this has been held by nursing since she is n.p.o. ?Plan for dialysis on Wednesday 4. Iron deficiency anemia ? Hemoglobin is stable though she is having some vaginal bleeding ? Will obtain a transvaginal ultrasound, if no obvious findings on imaging may need gynecological evaluation 5. Right lower extremity ulcer and cellulitis resolved DVT: SCDs Charges/Coding Visit Charges Inpatient E&M: 85886 Subs Hosp L2
[2025-03-04] MEDS: CHLORHEXIDINE GLUC 2% CLOTH 1 EACH TOWELETTE TOPICAL (07:57)
[2025-03-04] MEDS: Chlorhexidine 15 ML PO ×2 (07:57→21:29)
[2025-03-04] MEDS: Pantoprazole Sodium 40 MG in 0.9% Normal Saline (100mL MB+) 100 ML 330 MG IV (07:57)
--- NOTE | 2025-03-04 09:01 | PCM.PN.TICU ---
Objective Data Objective Data Vital Signs: Vital Signs Last response Temperature 36.9 C 03/04/25 08:00 Temperature Source Core 03/04/25 08:00 Pulse Rate 96 03/04/25 08:46 Pulse Strength Normal (2+) 03/04/25 08:02 Respiratory Rate 21 H 03/04/25 08:46 Respiratory Effort Mechanically Ventilated 03/04/25 04:00 Respiratory Depth Normal 03/04/25 04:00 Respiratory Pattern Normal 03/04/25 08:46 Blood Pressure 146/57 H 03/04/25 08:00 Blood Pressure Mean 86 03/04/25 08:00 Blood Pressure Source Monitor 03/04/25 08:00 Blood Pressure Position Semi-Fowlers 03/04/25 08:00 Blood Pressure Location Right Forearm 03/04/25 08:00 Pulse Ox 96 03/04/25 08:46 Oxygen Delivery Method Mechanical Ventilator 03/04/25 08:00 Oxygen Flow Rate (L/min) 60 03/02/25 09:47 Fraction of Inspired Oxygen (FIO2) 21 03/04/25 08:46 I&O: I&O Last 24 Hours 03/03/25 03/03/25 03/04/25 11:59 23:59 11:59 Intake Total 110 / 210 100 / 210 310 / 310 Output Total 480 / 835 155 / 835 400 / 400 Balance -370 / -625 -55 / -625 -90 / -90 I&O: Total Stay 02/05/25 09:43 thru 03/04/25 08:43 Intake Total 86997.91 Output Total 74884 Balance -78384.09 Current Meds Ordered / Administered: Current meds ordered / Administered Generic Name Dose Route Start Last Admin Trade Name Freq PRN Reason Stop Dose Admin Acetaminophen 650 mg 02/05/25 13:41 02/07/25 23:29 Acetaminophen 325 Mg Tablet PO 650 mg Q6H PRN PRN Administration Pain 1-10 Or Fever >100.7 Albuterol Sulfate 2.5 mg 02/22/25 11:14 Albuterol 2.5 Mg/3 Ml Vial.Neb. INHALATION Q8H.RT PRN WHEEZING OR COUGH Aspirin 81 mg 02/27/25 08:00 03/04/25 07:31 Aspirin 81 Mg Tab.Chew GT Not Given BREAKFAST PARMINDER Atorvastatin Calcium 40 mg 02/05/25 22:00 03/03/25 20:58 Atorvastatin Calcium 40 Mg Tablet PO Not Given QHS [facility] Calamine/Phenol 1 applic 02/11/25 22:00 03/04/25 05:02 Menthol/Lanolin/Calamine/Znox 113 Gm Tube TOPICAL 1 applic TID [facility] Administration Protocol Carvedilol 6.25 mg 02/05/25 19:30 03/04/25 07:31 Carvedilol 6.25 Mg Tablet PO Not Given BIDCM [facility] Protocol Chlorhexidine Gluconate 15 ml 02/10/25 10:00 03/04/25 07:57 Chlorhexidine 15 Ml PO 15 ml BID PARMINDER Administration Chlorhexidine Gluconate 1 each 02/13/25 10:00 03/04/25 07:57 Chlorhexidine Gluc 2% Cloth 1 Each [place] TOPICAL 1 each DAILY [facility] Administration Vancomycin HCl 500 mg/ Sodium 0 mg 03/03/25 09:55 03/04/25 05:01 Chloride 90 ml RC Not Given Q6 [facility] Fentanyl Citrate 50 mcg 02/11/25 11:33 Fentanyl 100 Mcg/2 Ml Ampul IV Q1H PRN PRN CPOT score > 3 Fluoxetine HCl 10 mg 02/06/25 10:00 03/04/25 07:31 Fluoxetine 10 Mg Capsule PO Not Given DAILY [facility] Guaifenesin 10 ml 02/10/25 14:00 03/04/25 05:01 Guaifenesin 10 Ml Udc (200mg/10ml) NG Not Given Q8H [facility] Heparin Sodium (Porcine) 5,000 unit 02/08/25 14:00 02/13/25 22:45 Heparin Injection (Vial) 5,000 Unit/Ml Vial SC Not Given Q8 [facility] Hydralazine HCl 10 mg 02/06/25 08:30 03/04/25 05:01 Hydralazine 10 Mg Tablet PO Not Given TID [facility] Protocol Hydralazine HCl 10 mg 03/03/25 10:20 03/03/25 16:27 Hydralazine 20 Mg/Ml Vial IV 10 mg Q6H PRN PRN Administration SBP > 160 Protocol Sodium Chloride 250 mls @ 15 mls/hr 02/05/25 16:53 02/23/25 12:38 IV Infused .[id number] PRN Infusion Saline Flush Sodium Chloride 250 mls @ 15 mls/hr 02/05/25 16:53 IV .[id number] PRN Additional IVPB Infusion Pantoprazole Sodium 40 mg/ 110 mls @ 330 mls/hr 02/08/25 12:30 03/04/25 08:43 Sodium Chloride IV Infused Q24 PARMINDER Infusion Dextrose 125 mls @ 999 mls/hr 02/21/25 12:24 02/26/25 06:36 Dextrose 10%-Water IV Infused .Q8M PRN Infusion HYPOGLYCEMIA Enteral Nutritional Formula 1,000 mls @ 60 mls/hr 02/28/25 12:30 03/03/25 20:58 Vital High Protein GT Not Given .[id number] PARMINDER Metronidazole 500 mg in 100 mls @ 100 mls/hr 03/03/25 18:00 03/04/25 06:04 Flagyl IV Infused Q6 PARMINDER Infusion Insulin Glargine 10 unit 02/26/25 10:00 03/04/25 07:32 Insulin Glargine-Yfgn 100 Unit/Ml Pen SC Not Given BID [facility] Insulin Human Lispro 0 unit 02/16/25 12:00 03/04/25 06:04 Insulin Lispro 100 Unit/Ml Insuln.Pen SC Not Given Q6 [facility] Protocol Isosorbide Dinitrate 5 mg 02/06/25 10:00 03/04/25 07:31 Isosorbide Dn 10 Mg Tablet PO Not Given BID [facility] Protocol Multi-Ingredient Ointment 1 applic 02/21/25 10:26 02/21/25 18:45 Mineral Oil/Petrolatum Cr 1.75oz Bottle TOPICAL 1 applic 4X/DAY PRN PRN Administration Dry Lips Protocol Ondansetron HCl 4 mg 03/03/25 10:20 Ondansetron 4 Mg/2 Ml Vial IV Q6H PRN PRN NAUSEA/VOMITING Sodium Chloride 10 - 40 ml 02/05/25 16:13 03/01/25 14:31 0.9% Saline Lock 10 Ml Syringe IV 20 ml UD PRN Administration SALINE FLUSH Lab / Micro Data 03/04/25 05:02 03/04/25 05:02 Labs: Laboratory Results - last 24 hr 03/03/25 05:08: POC Glucose 145 H 03/03/25 11:38: POC Glucose 162 H 03/03/25 18:07: POC Glucose 165 H 03/03/25 20:10: Hgb 10.0 L, Hct 34.1 L 03/04/25 00:31: POC Glucose 141 H 03/04/25 05:02: WBC 9.5, RBC 4.27, Hgb 9.2 L, Hct 31.1 L, MCV 72.8 L, MCH 21.5 L, MCHC 29.6 L, RDW Std Deviation 50.4 H, RDW Coeff of Bulmaro 19.7 H, Plt Count 330, MPV 9.2, Immature Gran % (Auto) 0.400, Neut % (Auto) 73.6 H, Lymph % (Auto) 11.8 L, [place] % (Auto) 9.2, Eos % (Auto) 3.5, Baso % (Auto) 1.5 H, Absolute Neuts (auto) 7.0, Absolute Lymphs (auto) 1.12, Nucleated RBC % 0, Sodium 142, Potassium 3.2 L, Chloride 103, Carbon Dioxide 21.1, Anion Gap 18 H, BUN 49 H, Creatinine 1.70 H, Estim Creat Clear Calc 33.16 L, Est GFR (MDRD) Non-Af 31 L, BUN/Creatinine Ratio 28.8 H, Glucose 142 H, Calcium 9.2 Micro: Microbiology 03/02/25 20:05 Stool Stool Lactoferrin - Final 03/02/25 20:05 Stool Enteric Bacteriology - Final 03/02/25 20:05 Stool C. difficile GDH Antigen & Toxins - Final 03/02/25 20:05 Stool Clostridioides difficile (PCR) - Final Rhythm Strip Rhythm Strip: Sinus Rhythm Rate: 104 Assessment and Plan . Assessment and plan: Subjective: No acute events o/n. Had transient SVT with coughing/suctioning, but then resolved spontaneously. Also having some vaginal bleeding Physical Exam: Gen - NAD, obese HEENT - MMM. Trach in place Resp - Diminished BS. Mechanically ventilated CV - RRR. No m/g/r Abd - Soft, NT, +distension Ext - No c/c/e Skin - No rashes? Neuro - Awake, follows commands I have reviewed the pertinent vital sign, laboratory, and imaging data. ASSESSMENT: # Acute hypoxic and hypercapneic respiratory failure ? intubated 02/08. s/p tracheostomy 02/27 # CHF exacerbation ? EF 15% # Sepsis # Presumptive E coli UTI # ELIDA on CKD - requiring HD initiation # Vaginal bleeding # Possible C diff colitis - PCR positive, toxin negative. However with ongoing diarrhea despite holding TF for several days, abd distension, intolerance of TF # h/o CVA # DM # Anemia # Depression/anxiety # Morbid obesity PLAN: -Cont VC vent 450/14/5/21%. Follow ABG/CXR intermittently -Cont PS trials as tolerated, still failing d/t low Vt/tachypnea -Nephrology following, monitor Cr, UOP. s/p several sessions of HD earlier and diuresis -Although C diff toxin negative given significant GI symptoms started treatment for C diff colitis with IV flagyl, vancomycin enemas for now in case of false negative result (however unable to properly administer vanc enemas due to leakage issues). f/u additional GI recs regarding this -Monitor for worsening vaginal bleeding, though seems to be slowing down. Lower suspicion for GI/urinary bleeding, has FMS and morillo in place without blood. Has not received ASA, SQ heparin recently. Follow CBC, check coags. Transvaginal US pending as well, would also clarify if gynecology services available if continues to having bleeding -s/p abx for UTI -Follow CBC -Replete electrolytes PRN -TF has been on hold d/t vomiting, leakage around G-tube. GI service aware by report, and possible plan for GJ tube FEN/GI: NPO Proph DVT/GI: SCDs (SQ heparin has been on hold), protonix Critical Care Time: 50 mins The entirety of this encounter was done via telemedicine using both audio and video. Consent was unable to be obtained for the telemedicine encounter due to the patient's mental status.
--- NOTE | 2025-03-04 09:03 | US_ITS ---
PROCEDURE: TRANSVAGINAL NON- 03/04/2025 REASON FOR EXAM: VAGINAL BLEEDING TECHNIQUE: Transabdominal pelvic ultrasound COMPARISON: None FINDINGS: Measurements: Uterus: 8 x 4.4 x 3.3 cm. Endometrial Thickness: 10 mm, thickened for age Right Ovary: 2.1 x 1.9 x 1.6 cm.. Left Ovary: 2.4 x 1.4 x 1.3 cm. Uterus: Retroflexed. Normal size, myometrial echotexture, and contour. Small nabothian cyst is noted. Endometrium: Heterogeneous, with slight echogenicity, likely secondary to blood products.. However, there is slightly increased vascularity suggestive of an underlying lesion. Right ovary: Normal size and echotexture. Left ovary: Normal size and echotexture. Other: Decompression of the bladder with Perez catheter in place. US/Transvaginal Non- IMPRESSION: Heterogeneously thickened endometrium, with likely blood products in place. Ho wever an underlying lesion can not be excluded. Recommend further evaluation with direct visualization and gynecologic consult. Reading Location: [facility]
[2025-03-04] MEDS: NYSTATIN 500,000 UNIT/5 ML UDC 500000 UNIT PO ×4 (10:09→21:30)
[2025-03-04] MEDS: Potassium Chloride 10mEq/100mL 10 MEQ/100 ML IV.SOLN. 100 MEQ IV BOLUS ×4 (10:10→13:50)
[2025-03-04] MEDS: Insulin Lispro 100 UNIT/ML INSULN.PEN SC (11:30)
[2025-03-04 11:49] LABS: Bedside Glucose 158 mg/dL (74-106)
[2025-03-04 12:45] LABS: International Normalized Ratio 1.5; Prothrombin Time (Protime)PT. 18.7 SECONDS (11.7-14.9)
[2025-03-04 12:46] LABS: Fibrinogen 590 mg/dl (203-444); Partial Thromboplast Time 21.7 Seconds (24.1-36.2)
[2025-03-04] MEDS: Acetylcysteine 800 MG/4 ML VIAL.NEB. INHALATION ×2 (14:18→19:17)
[2025-03-04] MEDS: Ipratropium 0.5 MG/2.5 ML SOLUTION INHALATION (14:18)
[2025-03-04] MEDS: Albuterol 2.5 MG/3 ML VIAL.NEB. INHALATION (19:17)
[2025-03-04] MEDS: 0.9% Saline Lock 10 ML Syringe IV (21:31)
[2025-03-04 21:43] LABS: Bedside Glucose 143 mg/dL (74-106)
[2025-03-05] VITALS (38 sets, daily range): BP systolic 126–159; BP diastolic 59–89; PULSE 88–150; RESP 14–36; TEMP 37.3–37.6; O2SAT 91–97; BMI 36.3
[2025-03-05 00:03] LABS: Bedside Glucose 141 mg/dL (74-106)
[2025-03-05] MEDS: Ipratropium 0.5 MG/2.5 ML SOLUTION INHALATION ×3 (00:07→19:35)
[2025-03-05] MEDS: Acetylcysteine 800 MG/4 ML VIAL.NEB. INHALATION (00:08)
[2025-03-05] MEDS: CHLORHEXIDINE GLUC 2% CLOTH 1 EACH TOWELETTE TOPICAL (04:15)
[2025-03-05] MEDS: Metoprolol Tartrate 5 MG/5 ML Vial IV ×3 (04:24→20:47)
--- NOTE | 2025-03-05 04:33 | NURSING ---
0351 pt went into svt 151, had pt try to cough and bear down, pt suctioned and hr still elevated- prn medication given
[2025-03-05 04:36] LABS: Absolute Neutrophil Count 10.7 X10^3/uL (2.0-7.7); Basophil# 0.15 X10^3/uL; Basophil% 1.1 % (0-1); Eosinophil# 0.26 X10^3/uL; Eosinophils% 1.9 % (0-5); Hematocrit 32.6 % (37-47); Hemoglobin 9.6 g/dL (12.0-15.0); Lymphocyte % 9.7 % (19-41); Mean Corp Hgb Conc 29.4 g/dL (32-36); Mean Corpuscular Hgb 21.7 pg (27.0-32.0); Mean Corpuscular Volume 73.8 fL (81-99); Mean Platelet Vol. 9.4 fl (6.2-12.0); Monocyte% 7.4 % (0-10); NRBC Flagged by Analyzer 0 % (0-5); Neutrophil # 10.67 X10^3/uL (2.7-7.7); Neutrophil % 79.4 % (47-70); POSITIVE MORPHOLOGY YES; Platelet Count 328 K/mm3 (150-450); RBC Distribution Width CV 20.3 % (11.6-14.6); RBC Distribution Width SD 51.9 fl (35.1-43.9); Red Blood Count 4.42 M/mm3 (4.2-5.4); White Blood Count 13.5 K/mm3 (4.4-11.0)
[2025-03-05 04:37] LABS: Differential Indicated SCAN CRITERIA MET
[2025-03-05 05:18] LABS: Anion Gap 20 (5-15); BUN 50 mg/dL (4-19); BUN/Creat Ratio 32.6 RATIO (10-20); Calcium,Total 9.3 mg/dL (7.6-11.0); Carbon Dioxide 18.4 mmol/L (21.0-32.0); Chloride 104 mmol/L (98-108); Creatinine, Serum 1.52 mg/dL (0.70-1.20); EST Glomerular Filtration Rate 35 (>60); Estimated Creatinine Clearance 36.68 ml/min (50-250); Glucose 170 mg/dL (70-99); Potassium 3.8 mmol/L (3.3-5.1); Sodium Level 143 mmol/L (133-145)
[2025-03-05] MEDS: metroNIDAZOLE 500 MG/100 ML BAG 100 MG IV ×4 (05:45→23:41)
[2025-03-05] MEDS: Menthol/Lanolin/Calamine/Znox 113 GM Tube 1 APPLIC TOPICAL ×2 (05:46→20:46)
[2025-03-05 06:05] LABS: Bedside Glucose 132 mg/dL (74-106)
[2025-03-05 06:59] LABS: Anisocytosis 1+
--- NOTE | 2025-03-05 07:01 | PCM.PN.INT ---
Assessment & Plan Assessment/Plan (1) Acute on chronic combined systolic (congestive) and diastolic (congestive) heart failure: (2) Urinary tract infection: (3) Acute respiratory failure with hypoxia and hypercarbia: (4) Chronic kidney disease (CKD): QUALIFIERS: Chronic kidney disease stage: stage 4 (GFR 15-29) Qualified Code(s): N18.4 - Chronic kidney disease, stage 4 (severe) PLAN: Plan RECOMMENDATIONS: 1. Continue assist-control mode of mechanical ventilation. 2. Continue daily attempts at spontaneous breathing trials. 3. Physical therapy to work with the patient. 4. Continue appropriate ICU prophylaxis. 5. Continue to hold tube feeding for now. Questionable conversion to GJ tube per GI. 6. LTACH disposition is pending. IMPRESSIONS: 1. Acute respiratory failure with hypoxemia and hypercapnia secondary to decompensated heart failure The patient was initially admitted to the hospital with acute decompensated congestive heart failure and UTI, but worsened from a respiratory perspective on the morning of February 08, with increasing oxygen requirement and lethargy. Subsequent ABG demonstrated acute CO2 retention, which was refractory to the use of noninvasive positive pressure ventilatory support. Therefore, the patient was intubated. The patient appears to have stabilized from a respiratory perspective following intubation. She will be continued on assist-control mode of mechanical ventilation, with a goal to wean FiO2 and PEEP as tolerated. Unfortunately, despite continued supportive care, the patient continues to fail attempts at spontaneous breathing trials. The patient was notably physically debilitated and underwent PEG tube placement on February 21 and tracheostomy placement on February 27. The patient continues to fail spontaneous breathing trials due to increasing tachypnea and low tidal volumes. She will require LTACH disposition for prolonged weaning from invasive mechanical ventilatory support. 2. Acute on chronic combined systolic and diastolic heart failure Continue medical management per cardiology recommendations. 3. Acute on chronic kidney disease Suspect that this is related to underlying cardiorenal syndrome. Continue medical management per nephrology recommendations. 4. Morbid obesity/anemia/diabetes mellitus/history of CVA/depression/anxiety Complicates care, management, recovery and prognosis. Continue supportive measures as noted above. TIME: 31 minutes of critical care time, independent of procedures, was spent addressing the patient's acute respiratory failure with hypoxemia and hypercapnia, acute decompensated congestive heart failure, acute on chronic kidney disease, review of all data and collaboration with the care team. Subjective Subjective The patient was seen and examined at the bedside this morning. Events from the last 24 hours have been reviewed. The patient is currently afebrile, hemodynamically stable and maintaining appropriate oxygen saturations on assist-control mode of mechanical ventilation. The patient once again failed another attempted a spontaneous breathing trial this morning. She is currently documented to be overall net -14 L for the hospitalization. White blood cell count is mildly elevated at 13,000. Hemoglobin is stable at 9.6 g/dL. Platelet count is within normal limits. Creatinine is stable at 1.52. Objective Data Objective Data The patient's most recent lab work, culture data and imaging studies have all been personally reviewed. Surface echocardiogram demonstrated an ejection fraction of 15%. Urine culture was positive for pansensitive E. coli. Blood cultures have not demonstrated any growth to date. Sputum culture has not demonstrated any growth to date. Vital Signs: Vital Signs Temp Pulse Resp BP Pulse Ox O2 Del Method O2 Flow Rate 99.3 F H 93 22 H 135/60 H 95 Mechanical Ventilator 60 03/05/25 07:00 03/05/25 07:00 03/05/25 07:00 03/05/25 07:00 03/05/25 07:00 03/05/25 07:00 03/02/25 09:47 FiO2 21 03/05/25 07:00 Oxygen Flow Rate (L/min) 60 Oxygen Delivery Method Mechanical Ventilator Weight: 218 lb 4.122 oz Body Mass Index (BMI) 36.3 Intake & Output: Intake and Output for Last 24 Hours 03/03/25 03/04/25 03/05/25 23:59 23:59 23:59 Intake Total 210 / 210 943.33 / 983.33 280 / 280 Output Total 635 / 835 550 / 750 375 / 375 Balance -425 / -625 393.33 / 233.33 -95 / -95 Lab / Micro Data Attestation: I reviewed the patient's lab results. 03/05/25 04:25 03/05/25 04:25 Labs: Laboratory Results - last 24 hr 03/04/25 11:29: POC Glucose 158 H 03/04/25 12:15: PT 18.7 H, INR 1.5, APTT 21.7 L, Fibrinogen 590 H 03/04/25 16:42: POC Glucose 143 H 03/04/25 23:41: POC Glucose 141 H 03/05/25 04:25: WBC 13.5 H, RBC 4.42, Hgb 9.6 L, Hct 32.6 L, MCV 73.8 L, MCH 21.7 L, MCHC 29.4 L, RDW Std Deviation 51.9 H, RDW Coeff of Bulmaro 20.3 H, Plt Count 328, MPV 9.4, Immature Gran % (Auto) 0.500, Neut % (Auto) 79.4 H, Lymph % (Auto) 9.7 L, [place] % (Auto) 7.4, Eos % (Auto) 1.9, Baso % (Auto) 1.1 H, Absolute Neuts (auto) 10.7 H, Absolute Lymphs (auto) 1.30, Nucleated RBC % 0, Anisocytosis 1+, Sodium 143, Potassium 3.8, Chloride 104, Carbon Dioxide 18.4 L, Anion Gap 20 H, BUN 50 H, Creatinine 1.52 H, Estim Creat Clear Calc 36.68 L, Est GFR (MDRD) Non-Af 35 L, BUN/Creatinine Ratio 32.6 H, Glucose 170 H, Calcium 9.3 03/05/25 05:44: POC Glucose 132 H Micro: Microbiology 03/02/25 20:05 Stool Stool Lactoferrin - Final 03/02/25 20:05 Stool Enteric Bacteriology - Final 03/02/25 20:05 Stool C. difficile GDH Antigen & Toxins - Final 03/02/25 20:05 Stool Clostridioides difficile (PCR) - Final 02/05/25 12:15 Blood Culture (Wb) - Left Wrist Blood Culture - Final No growth in 5 days. 02/05/25 12:04 Blood Culture (Wb) - Right Hand Blood Culture - Final No growth in 5 days. 02/08/25 11:15 Sputum, Induced/Lukens Gram Stain - Final 02/08/25 11:15 Sputum, Induced/[place]ukens Respiratory Culture - Final Mixed normal respiratory dave. No Streptococcus pneumoniae, beta-hemolytic Streptococcus or Staphylococcus aureus isolated. 02/08/25 00:05 Stool Stool Occult Blood (TREVOR) - Final 02/05/25 11:20 Urine Catheter - Catheter Urine Culture - Final Presumptive E. coli 02/05/25 16:50 Nasal Secretion MRSA (PCR) - Final 02/05/25 16:50 Wound - Leg, Left Skin and Soft Tissue MRSA/MSSA (PCR - Final ABG Data ABG results: ABG 02/28/25 12:09 Specimen Type ART Sample Site R RADIAL pH 7.36 Bicarbonate Actual 17.8 L Total CO2 19 Base Excess -8 L O2 Saturation 91 L O2 % 21.0 ABG pCO2 31.4 L ABG pO2 62 L Harvey Test POSITIVE Vent Mode SPONT POC PEEP 5 POC Pressure Suppt 5 Blood Gas Notified Whom YOVANI Clinical Comments SBT X1 HR Radiography Diagnostic Testing: Radiology Impression Transvaginal US 03/04/25 09:03 IMPRESSION: Heterogeneously thickened endometrium, with likely blood products in place. However an underlying lesion can not be excluded. Recommend further evaluation with direct visualization and gynecologic consult. Reading [facility] Rhythm Strip Rhythm Strip: Sinus Rhythm Rate: 104 Physical Exam Const alert, oriented x3 and no apparent distress General Appearance: cooperative and patient mechanically ventilated HEENT normocephalic and head/scalp atraumatic HEENT Narrative: Tracheostomy in place Eyes PERRL, EOMs intact bilaterally and conjunctivae normal Neck supple Neck Narrative: Stable tracheostomy site General: trachea midline Chest inspection of chest normal Resp Auscultation: diminished lung sounds; Negative for rales, rhonchi or wheezes Cardio regular rate and regular rhythm GI normal to inspection, nondistended, normoactive bowel sounds GI Narrative: PEG tube in place. Extremity General Extremity: edema; Negative for clubbing Skin Skin Narrative: Wrapped extremities. Neuro Neuro Narrative: Alert and able to follow simple commands. Psych Mood & Affect: flat affect Charges/Coding Procedures Hospitalists Procedures: [id number] Critical Care 1st Hr
--- NOTE | 2025-03-05 07:29 | CPS ---
during weaning trial, pt became anxious with increased HR & RR. placed back on previous settings.
--- NOTE | 2025-03-05 08:26 | CASEMGMT ---
Maximo from [facility] reports that precertification is still pending at this time.
--- NOTE | 2025-03-05 09:31 | EX.PCM.CONOB ---
Assessment & Plan (1) Abnormal vaginal bleeding with endometrial thickness greater than 5 mm present on transvaginal ultrasound in postmenopausal patient: PLAN: Discussed with Dr. Jose Pool regarding the abnormality on ultrasound which shows a thickened endometrium. Estimated likelihood of early uterine cancer is approximately 5 to 10% but more likely this is endometrial hyperplasia. Discuss diagnostic and treatment options with Dr. Pool given frailty of patient. We believe that the patient is too frail to have endometrial sampling done at this time. We are also reluctant to start Megace as this may increase the risk of DVT. Probably the best option, given the state of the patient's current health, would be to use Provera 10 mg daily which should only minimally increase the risk of DVT. Thank you for allowing us to participate in the care of this patient. Please call if we can be of further assistance. HPI Consult Data Date of Consult: 03/05/25 HPI Narrative Reason for Consultation: Vaginal Bleeding in Postmenopausal Patient HPI Narrative: PRICILA WALDROP, is a 74 F patient in the intensive care unit who presented to the emergency room about a month ago. 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 She was on mechanical ventilation and recently transitioned to tracheostomy. She also has a PEG in place with tube feedings. She is on prophylaxis for DVT. She was recently noted to have some vaginal bleeding. Recent ultrasound showed normal ovaries and uterus with the lining thickened to 10 mm. The patient is awaiting placement to a long-term care facility. [facility] Medical History (Updated 03/05/25 @ 09:[address] Sagar Rendon MD) ELIDA (acute kidney injury) Essential hypertension Morbid obesity with BMI of 40.0-44.9, adult Hypothermia Cardiomyopathy Chronic anemia Hypoxia History of diabetes mellitus Acute metabolic encephalopathy due to hypoglycemia History of stroke Chronic kidney disease Altered level of consciousness Non-pressure chronic ulcer of other 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 Chronic kidney disease (CKD) Type 2 diabetes mellitus with hypoglycemia Diabetes mellitus with diabetic polyneuropathy Type 2 diabetes mellitus with foot ulcer Diabetes mellitus with diabetic polyneuropathy Dyspnea Ischemic cardiomyopathy History of CVA (cerebrovascular accident) Atherosclerosis of coronary artery without angina pectoris Type 2 diabetes mellitus Secondary pulmonary arterial hypertension Chronic combined systolic and diastolic CHF (congestive heart failure) Essential hypertension Obesity Chronic kidney disease (CKD) GI bleed (01/2022) Anemia Diabetes mellitus type 2 in obese Hyperlipidemia Home Medications ?Medication ?Instructions ?Recorded ?Last Taken ?Type atorvastatin 40 mg tablet 40 mg PO QHS CHOLESTEROL 02/22/22 Unknown History aspirin 81 mg tablet,delayed 81 mg PO DAILY HEART HEALTH 06/03/22 Unknown History release (Adult Aspirin Regimen) dapagliflozin propanediol 10 mg 10 mg PO DAILY DIABETES #90 tabs 07/12/24 Unknown Rx tablet (Farxiga) blood sugar diagnostic (Accu-Chek 07/13/24 Unknown History Alvina Plus test strips) fluoxetine 10 mg capsule 10 mg PO DAILY DEPERSSION 07/13/24 Unknown History insulin lispro 100 unit/mL 15 unit subcut ACHS DM 07/13/24 Unknown History subcutaneous pen (Humalog KwikPen (U-100) Insulin) amlodipine 5 mg tablet 5 mg PO DAILY HEART #0 tabs 07/18/24 Unknown Rx vitamin B complex (Complex B-100 1 tab PO DAILY [facility] 08/19/24 Unknown History tablet,extended release) carvedilol 12.5 mg tablet 12.5 mg PO BIDCM #30 tabs 08/22/24 Unknown Rx losartan 50 mg tablet 50 mg PO DAILY #30 tabs 08/22/24 Unknown Rx furosemide 40 mg tablet 40 mg PO BID #60 tabs 01/30/25 Unknown Rx metolazone 5 mg tablet 5 mg PO DAILY HE 01/30/25 Unknown History acetaminophen 325 mg tablet 650 mg PO Q6H PRN Pain 1-10 Or 02/05/25 Unknown History Fever >100.7 Allergy/AdvReac Type Severity Reaction Status Date / Time No Known Allergies Allergy Verified 02/05/25 09:50 Family History Father Diabetes Heart disease CAD (coronary artery disease) Mother Heart disease Surgical History History of coronary artery stent placement (09/2013) H/O vein stripping Status post angioplasty with stent Social History household members: family Smoking Status: Former smoker how long ago did patient quit smokin years ago alcohol intake: never substance use type: does not use caffeine: Yes Vital Signs Vital Signs Vital Signs: 03/04/25 10:00 03/04/25 10:59 03/04/25 11:00 Temperature 98.7 F 98.1 F Temperature Source Core Core Pulse Rate 87 98 100 Pulse Strength Respiratory Rate 17 25 H Respiratory Effort Respiratory Depth Respiratory Pattern Blood Pressure 156/64 H 156/72 H Blood Pressure Mean 94 100 Blood Pressure Source Monitor Monitor Blood Pressure Position Semi-Fowlers Semi-Fowlers Blood Pressure Location Right Forearm Right Forearm Pulse Ox 95 94 Oxygen Delivery Method Mechanical Ventilator Mechanical Ventilator Fraction of Inspired Oxygen (FIO2) 21 03/04/25 11:34 03/04/25 12:00 03/04/25 12:00 Temperature 98.8 F Temperature Source Core Pulse Rate 89 93 Pulse Strength Respiratory Rate 23 H 16 Respiratory Effort Mechanically Ventilated Respiratory Depth Normal Respiratory Pattern Normal Tachypnea Blood Pressure 151/79 H Blood Pressure Mean 103 Blood Pressure Source Monitor Blood Pressure Position Semi-Fowlers Blood Pressure Location Right Arm Pulse Ox 97 96 Oxygen Delivery Method Mechanical Ventilator Mechanical Ventilator Fraction of Inspired Oxygen (FIO2) 21 03/04/25 13:00 03/04/25 13:24 03/04/25 13:25 Temperature 99.1 F Temperature Source Core Pulse Rate 100 104 H Pulse Strength Respiratory Rate 23 H 17 22 H Respiratory Effort Respiratory Depth Respiratory Pattern Normal Blood Pressure 160/71 H Blood Pressure Mean 100 Blood Pressure Source Monitor Blood Pressure Position Semi-Fowlers Blood Pressure Location Right Forearm Pulse Ox 95 91 Oxygen Delivery Method Mechanical Ventilator Fraction of Inspired Oxygen (FIO2) 03/04/25 14:00 03/04/25 14:20 03/04/25 14:22 Temperature 99.2 F H Temperature Source Core Pulse Rate 107 H 113 H 112 H Pulse Strength Respiratory Rate 20 H 28 H 25 H Respiratory Effort Respiratory Depth Respiratory Pattern Tachypnea Normal Blood Pressure 153/69 H Blood Pressure Mean 97 Blood Pressure Source Monitor Blood Pressure Position Semi-Fowlers Blood Pressure Location Right Forearm Pulse Ox 93 94 Oxygen Delivery Method Mechanical Ventilator Fraction of Inspired Oxygen (FIO2) 03/04/25 15:00 03/04/25 16:00 03/04/25 16:00 Temperature 99.1 F 99.3 F H Temperature Source Core Core Pulse Rate 105 H 97 Pulse Strength Respiratory Rate 18 17 Respiratory Effort Mechanically Ventilated Respiratory Depth Normal Respiratory Pattern Tachypnea Blood Pressure 121/57 H 130/48 H Blood Pressure Mean 78 75 Blood Pressure Source Monitor Monitor Blood Pressure Position Semi-Fowlers Semi-Fowlers Blood Pressure Location Right Forearm Right Forearm Pulse Ox 93 94 Oxygen Delivery Method Mechanical Ventilator Mechanical Ventilator Mechanical Ventilator Fraction of Inspired Oxygen (FIO2) 21 21 03/04/25 17:00 03/04/25 17:20 03/04/25 18:00 Temperature 99.4 F H Temperature Source Core Pulse Rate 94 97 99 Pulse Strength Respiratory Rate 18 17 14 Respiratory Effort Respiratory Depth Respiratory Pattern Normal Blood Pressure 144/61 H 153/55 H Blood Pressure Mean 88 87 Blood Pressure Source Monitor Monitor Blood Pressure Position Semi-Fowlers Semi-Fowlers Blood Pressure Location Right Forearm Right Forearm Pulse Ox 95 95 96 Oxygen Delivery Method Mechanical Ventilator Mechanical Ventilator Fraction of Inspired Oxygen (FIO2) 03/04/25 19:00 03/04/25 19:12 03/04/25 19:12 Temperature 99.4 F H Temperature Source Core Pulse Rate 97 104 H 104 H Pulse Strength Respiratory Rate 19 H 18 18 Respiratory Effort Respiratory Depth Respiratory Pattern Normal Normal Blood Pressure 131/54 H Blood Pressure Mean 79 Blood Pressure Source Monitor Blood Pressure Position Semi-Fowlers Blood Pressure Location Right Forearm Pulse Ox 95 95 Oxygen Delivery Method Mechanical Ventilator Fraction of Inspired Oxygen (FIO2) 03/04/25 20:00 03/04/25 20:00 03/04/25 21:00 Temperature 99.3 F H 99.3 F H Temperature Source Core Core Pulse Rate 96 102 H Pulse Strength Respiratory Rate 18 19 H Respiratory Effort Mechanically Ventilated Respiratory Depth Normal Respiratory Pattern Tachypnea Blood Pressure 139/57 H 146/61 H Blood Pressure Mean 84 89 Blood Pressure Source Monitor Monitor Blood Pressure Position Semi-Fowlers Semi-Fowlers Blood Pressure Location Right Forearm Right Forearm Pulse Ox 93 93 Oxygen Delivery Method Mechanical Ventilator Mechanical Ventilator Mechanical Ventilator Fraction of Inspired Oxygen (FIO2) 03/04/25 22:00 03/04/25 22:00 03/04/25 23:00 Temperature 99.2 F H 99.2 F H Temperature Source Core Core Pulse Rate 103 H 95 Pulse Strength Normal (2+) Respiratory Rate 19 H 19 H Respiratory Effort Respiratory Depth Respiratory Pattern Blood Pressure 143/115 H 139/76 H Blood Pressure Mean 124 97 Blood Pressure Source Monitor Monitor Blood Pressure Position Semi-Fowlers Semi-Fowlers Blood Pressure Location Right Forearm Right Forearm Pulse Ox 96 96 Oxygen Delivery Method Mechanical Ventilator Mechanical Ventilator Fraction of Inspired Oxygen (FIO2) 21 03/04/25 23:17 03/05/25 00:00 03/05/25 00:00 Temperature 99.1 F Temperature Source Core Pulse Rate 96 95 Pulse Strength Respiratory Rate 20 H 16 Respiratory Effort Mechanically Ventilated Respiratory Depth Normal Respiratory Pattern Normal Tachypnea Blood Pressure 136/62 H Blood Pressure Mean 86 Blood Pressure Source Monitor Blood Pressure Position Semi-Fowlers Blood Pressure Location Right Arm Pulse Ox 100 96 Oxygen Delivery Method Mechanical Ventilator Mechanical Ventilator Fraction of Inspired Oxygen (FIO2) 21 03/05/25 00:09 03/05/25 01:00 03/05/25 02:00 Temperature 99.1 F 99.1 F Temperature Source Core Core Pulse Rate 92 91 94 Pulse Strength Respiratory Rate 16 19 H 19 H Respiratory Effort Respiratory Depth Respiratory Pattern Normal Blood Pressure 135/63 H 135/63 H Blood Pressure Mean 87 87 Blood Pressure Source Monitor Monitor Blood Pressure Position Semi-Fowlers Semi-Fowlers Blood Pressure Location Right Forearm Right Forearm Pulse Ox 93 95 Oxygen Delivery Method Mechanical Ventilator Mechanical Ventilator Fraction of Inspired Oxygen (FIO2) 03/05/25 02:12 03/05/25 03:00 03/05/25 04:00 Temperature 99.1 F 99.3 F H Temperature Source Core Core Pulse Rate 97 109 H 150 H Pulse Strength Respiratory Rate 19 H 19 H 22 H Respiratory Effort Respiratory Depth Respiratory Pattern Normal Blood Pressure 131/70 H 135/82 H Blood Pressure Mean 90 99 Blood Pressure Source Monitor Monitor Blood Pressure Position Semi-Fowlers Semi-Fowlers Blood Pressure Location Right Forearm Right Forearm Pulse Ox 95 95 95 Oxygen Delivery Method Mechanical Ventilator Mechanical Ventilator Fraction of Inspired Oxygen (FIO2) 21 03/05/25 04:00 03/05/25 04:24 03/05/25 05:00 Temperature 99.3 F H Temperature Source Core Pulse Rate 144 H 89 Pulse Strength Respiratory Rate 22 H Respiratory Effort Mechanically Ventilated Respiratory Depth Normal Respiratory Pattern Tachypnea Blood Pressure 135/65 H Blood Pressure Mean 88 Blood Pressure Source Monitor Blood Pressure Position Semi-Fowlers Blood Pressure Location Right Forearm Pulse Ox 95 Oxygen Delivery Method Mechanical Ventilator Mechanical Ventilator Fraction of Inspired Oxygen (FIO2) 03/05/25 05:19 03/05/25 06:00 03/05/25 07:00 Temperature 99.3 F H 99.3 F H Temperature Source Core Core Pulse Rate 88 98 93 Pulse Strength Respiratory Rate 15 22 H 22 H Respiratory Effort Respiratory Depth Respiratory Pattern Normal Blood Pressure 139/71 H 135/60 H Blood Pressure Mean 93 85 Blood Pressure Source Monitor Monitor Blood Pressure Position Semi-Fowlers Semi-Fowlers Blood Pressure Location Right Forearm Right Forearm Pulse Ox 93 95 95 Oxygen Delivery Method Mechanical Ventilator Mechanical Ventilator Fraction of Inspired Oxygen (FIO2) 21 21 21 03/05/25 07:28 03/05/25 07:28 Temperature Temperature Source Pulse Rate 93 112 H Pulse Strength Respiratory Rate 24 H 28 H Respiratory Effort Respiratory Depth Respiratory Pattern Blood Pressure Blood Pressure Mean Blood Pressure Source Blood Pressure Position Blood Pressure Location Pulse Ox 94 Oxygen Delivery Method Fraction of Inspired Oxygen (FIO2) Weight Weight: 218 lb 4.122 oz Body Mass Index (BMI) 36.3 Physical Exam Const alert Constitutional Narrative: Confined to bed with tracheostomy in place. Appears frail. General Appearance: comfortable Lab / Micro Data 03/05/25 04:25 03/05/25 04:25 Labs: Laboratory Results - last 24 hr 03/04/25 11:29: POC Glucose 158 H 03/04/25 12:15: PT 18.7 H, INR 1.5, APTT 21.7 L, Fibrinogen 590 H 03/04/25 16:42: POC Glucose 143 H 03/04/25 23:41: POC Glucose 141 H 03/05/25 04:25: WBC 13.5 H, RBC 4.42, Hgb 9.6 L, Hct 32.6 L, MCV 73.8 L, MCH 21.7 L, MCHC 29.4 L, RDW Std Deviation 51.9 H, RDW Coeff of Bulmaro 20.3 H, Plt Count 328, MPV 9.4, Immature Gran % (Auto) 0.500, Neut % (Auto) 79.4 H, Lymph % (Auto) 9.7 L, [place] % (Auto) 7.4, Eos % (Auto) 1.9, Baso % (Auto) 1.1 H, Absolute Neuts (auto) 10.7 H, Absolute Lymphs (auto) 1.30, Nucleated RBC % 0, Anisocytosis 1+, Sodium 143, Potassium 3.8, Chloride 104, Carbon Dioxide 18.4 L, Anion Gap 20 H, BUN 50 H, Creatinine 1.52 H, Estim Creat Clear Calc 36.68 L, Est GFR (MDRD) Non-Af 35 L, BUN/Creatinine Ratio 32.6 H, Glucose 170 H, Calcium 9.3 03/05/25 05:44: POC Glucose 132 H Rhythm Strip Rhythm Strip: Sinus Rhythm Rate: 104 Imaging Radiology Impression Transvaginal US 03/04/25 09:03 IMPRESSION: Heterogeneously thickened endometrium, with likely blood products in place. However an underlying lesion can not be excluded. Recommend further evaluation with direct visualization and gynecologic consult. Reading Location: [facility]
[2025-03-05] MEDS: Pantoprazole Sodium 40 MG in 0.9% Normal Saline (100mL MB+) 100 ML 330 MG IV (09:44)
[2025-03-05] MEDS: Chlorhexidine 15 ML PO ×2 (09:45→20:46)
[2025-03-05] MEDS: NYSTATIN 500,000 UNIT/5 ML UDC 500000 UNIT PO ×4 (09:46→20:46)
--- NOTE | 2025-03-05 10:30 | CASEMGMT ---
Updated clinicals and progress notes [facility] to [facility] at this time.
--- NOTE | 2025-03-05 11:07 | PCM.PN.REN ---
Subjective Subjective Events noted Objective Data Objective Data Vital Signs: Vital Signs Temp Pulse Resp BP Pulse Ox O2 Del Method O2 Flow Rate 99.3 F H 111 H 27 H 135/60 H 95 Mechanical Ventilator 60 03/05/25 07:00 03/05/25 09:10 03/05/25 09:10 03/05/25 07:00 03/05/25 09:10 03/05/25 07:00 03/02/25 09:47 FiO2 21 03/05/25 09:10 Oxygen Flow Rate (L/min) 60 Oxygen Delivery Method Mechanical Ventilator Weight: 99 kg Body Mass Index (BMI) 36.3 Intake & Output: Intake and Output for Last 24 Hours 03/03/25 03/04/25 03/05/25 23:59 23:59 23:59 Intake Total 210 / 210 943.33 / 983.33 390 / 390 Output Total 635 / 835 550 / 750 375 / 375 Balance -425 / -625 393.33 / 233.33 Lab / Micro Data 03/05/25 04:25 03/05/25 04:25 Labs: Laboratory Results - last 24 hr 03/04/25 11:29: POC Glucose 158 H 03/04/25 12:15: PT 18.7 H, INR 1.5, APTT 21.7 L, Fibrinogen 590 H 03/04/25 16:42: POC Glucose 143 H 03/04/25 23:41: POC Glucose 141 H 03/05/25 04:25: WBC 13.5 H, RBC 4.42, Hgb 9.6 L, Hct 32.6 L, MCV 73.8 L, MCH 21.7 L, MCHC 29.4 L, RDW Std Deviation 51.9 H, RDW Coeff of Bulmaro 20.3 H, Plt Count 328, MPV 9.4, Immature Gran % (Auto) 0.500, Neut % (Auto) 79.4 H, Lymph % (Auto) 9.7 L, [place] % (Auto) 7.4, Eos % (Auto) 1.9, Baso % (Auto) 1.1 H, Absolute Neuts (auto) 10.7 H, Absolute Lymphs (auto) 1.30, Nucleated RBC % 0, Anisocytosis 1+, Sodium 143, Potassium 3.8, Chloride 104, Carbon Dioxide 18.4 L, Anion Gap 20 H, BUN 50 H, Creatinine 1.52 H, Estim Creat Clear Calc 36.68 L, Est GFR (MDRD) Non-Af 35 L, BUN/Creatinine Ratio 32.6 H, Glucose 170 H, Calcium 9.3 03/05/25 05:44: POC Glucose 132 H Micro: Microbiology 03/02/25 20:05 Stool Stool Lactoferrin - Final 03/02/25 20:05 Stool Enteric Bacteriology - Final 03/02/25 20:05 Stool C. difficile GDH Antigen & Toxins - Final 03/02/25 20:05 Stool Clostridioides difficile (PCR) - Final 02/05/25 12:15 Blood Culture (Wb) - Left Wrist Blood Culture - Final No growth in 5 days. 02/05/25 12:04 Blood Culture (Wb) - Right Hand Blood Culture - Final No growth in 5 days. 02/08/25 11:15 Sputum, Induced/Lukens Gram Stain - Final 02/08/25 11:15 Sputum, Induced/Lukens Respiratory Culture - Final Mixed normal respiratory dave. No Streptococcus pneumoniae, beta-hemolytic Streptococcus or Staphylococcus aureus isolated. 02/08/25 00:05 Stool Stool Occult Blood (TREVOR) - Final 02/05/25 11:20 Urine Catheter - Catheter Urine Culture - Final Presumptive E. coli 02/05/25 16:50 Nasal Secretion MRSA (PCR) - Final 02/05/25 16:50 Wound - Leg, Left Skin and Soft Tissue MRSA/MSSA (PCR - Final Radiography Diagnostic Testing: Radiology Impression Transvaginal US 03/04/25 09:03 IMPRESSION: Heterogeneously thickened endometrium, with likely blood products in place. However an underlying lesion can not be excluded. Recommend further evaluation with direct visualization and gynecologic consult. Reading Location: [facility] Rhythm Strip Rhythm Strip: Sinus Rhythm Rate: 104 Physical Exam Narrative On ventilator support s1s2 no murmurs Lungs sound clear anteriorly, no wheezing, no rales abdomen soft Edema bilateral legs, improved tunneled HD catheter dressing C/D/I Const Orientation / Consciousness: lethargic Nutritional Appearance: obese HEENT normocephalic Neck no lymphadenopathy Resp Auscultation: rhonchi Cardio regular rate GI non-tender Skin no rashes or lesions noted Neuro Sensorium / Orientation: lethargic Psych Memory / Cognition: cognition impaired Assessment & Plan Assessment/Plan (1) ELIDA (acute kidney injury): PLAN: CKD stage IIIb. Baseline creatinine is around 1.5-1.7. Initially required dialysis, was off dialysis for few days. Last week we had to do 1 more dialysis mostly related to acidosis. However since then creatinine has been relatively stable. Urine output, even though on the lower side is stable. Bicarbonate 18. Potassium is okay. No plans for extubation, she is status post trach. Hold off on renal replacement therapy for today. Will continue to assess needs.
[2025-03-05] MEDS: Insulin Lispro 100 UNIT/ML INSULN.PEN SC ×3 (11:28→23:48)
[2025-03-05 11:52] LABS: Bedside Glucose 200 mg/dL (74-106)
--- NOTE | 2025-03-05 13:33 | CASEMGMT ---
At this time, Maximo from the [facility] reports that pre-cert is still pending. CM to follow.
--- NOTE | 2025-03-05 16:36 | CASEMGMT ---
At this time, pre-cert is still pending. CM to follow. There is a green sheet placed on the chart in the case that pre-cert is obtained after hours.
--- NOTE | 2025-03-05 17:45 | PN_ITS ---
Subjective Subjective Patient was seen and examined with her nurse by her bedside. She remains on the vent via the trach. She had a low-grade fever this morning. He is currently in isolation on account of presumptive C. difficile. She has a fecal management system in place and is still having diarrhea. Tube feeds also on hold because of increased residuals. Unable to do review of systems otherwise. Objective Data Objective Data Vital Signs: Vital Signs Temp Pulse Resp BP Pulse Ox O2 Del Method O2 Flow Rate 99.4 F H 115 H 17 130/62 H 94 Mechanical Ventilator 60 03/05/25 16:00 03/05/25 16:00 03/05/25 16:30 03/05/25 16:00 03/05/25 16:00 03/05/25 16:00 03/02/25 09:47 FiO2 21 03/05/25 16:30 Oxygen Flow Rate (L/min) 60 Oxygen Delivery Method Mechanical Ventilator Weight: 218 lb 4.122 oz Body Mass Index (BMI) 36.3 Intake & Output: Intake and Output for Last 24 Hours 03/03/25 03/04/25 03/05/25 23:59 23:59 23:59 Intake Total 210 / 210 943.33 / 983.33 490 / 490 Output Total 635 / 835 550 / 750 675 / 675 Balance -425 / -625 393.33 / 233.33 -185 / -185 Lab / Micro Data 03/05/25 04:25 03/05/25 04:25 Labs: Laboratory Results - last 24 hr 03/04/25 16:42: POC Glucose 143 H 03/04/25 23:41: POC Glucose 141 H 03/05/25 04:25: WBC 13.5 H, RBC 4.42, Hgb 9.6 L, Hct 32.6 L, MCV 73.8 L, MCH 21.7 L, MCHC 29.4 L, RDW Std Deviation 51.9 H, RDW Coeff of Bulmaro 20.3 H, Plt Count 328, MPV 9.4, Immature Gran % (Auto) 0.500, Neut % (Auto) 79.4 H, Lymph % (Auto) 9.7 L, [place] % (Auto) 7.4, Eos % (Auto) 1.9, Baso % (Auto) 1.1 H, Absolute Neuts (auto) 10.7 H, Absolute Lymphs (auto) 1.30, Nucleated RBC % 0, Anisocytosis 1+, Sodium 143, Potassium 3.8, Chloride 104, Carbon Dioxide 18.4 L, Anion Gap 20 H, BUN 50 H, Creatinine 1.52 H, Estim Creat Clear Calc 36.68 L, Est GFR (MDRD) Non-Af 35 L, BUN/Creatinine Ratio 32.6 H, Glucose 170 H, Calcium 9.3 03/05/25 05:44: POC Glucose 132 H 03/05/25 11:26: POC Glucose 200 H Micro: Microbiology 03/02/25 20:05 Stool Stool Lactoferrin - Final 03/02/25 20:05 Stool Enteric Bacteriology - Final 03/02/25 20:05 Stool C. difficile GDH Antigen & Toxins - Final 03/02/25 20:05 Stool Clostridioides difficile (PCR) - Final 02/05/25 12:15 Blood Culture (Wb) - Left Wrist Blood Culture - Final No growth in 5 days. 02/05/25 12:04 Blood Culture (Wb) - Right Hand Blood Culture - Final No growth in 5 days. 02/08/25 11:15 Sputum, Induced/Lukens Gram Stain - Final 02/08/25 11:15 Sputum, Induced/Lukens Respiratory Culture - Final Mixed normal respiratory dave. No Streptococcus pneumoniae, beta-hemolytic Streptococcus or Staphylococcus aureus isolated. 02/08/25 00:05 Stool Stool Occult Blood (TREVOR) - Final 02/05/25 11:20 Urine Catheter - Catheter Urine Culture - Final Presumptive E. coli 02/05/25 16:50 Nasal Secretion MRSA (PCR) - Final 02/05/25 16:50 Wound - Leg, Left Skin and Soft Tissue MRSA/MSSA (PCR - Final Rhythm Strip Rhythm Strip: Sinus Rhythm Rate: 104 Physical Exam Const alert Constitutional Narrative: Class II obesity with BMI of 36.3. Trach in situ. Able to shake her head or nod in response to questions. HEENT normocephalic, head/scalp atraumatic and moist oral mucous membranes HEENT Narrative: Trach in situ Eyes PERRL Neck supple Neck Narrative: trach in situ, on vent via the trach Lymph Lymphatic: no lymphedema noted Resp Resp Narrative: Mildly to diminished breath sounds bibasilarly. No wheezes or crackles. on ventilator via trach Cardio regular rate, regular rhythm, S1 normal heart sound, S2 normal heart sound and no murmurs GI normal to inspection, nondistended, normoactive bowel sounds, soft to palpation and non-tender GI Narrative: PEG tube in situ Extremity normal capillary refill, no clubbing, cyanosis or edema and no calf tenderness General Extremity: no tenderness to palpation of joints or extremities Skin General Skin Exam: no breakdown Neuro no focal motor deficits Neuro Narrative: Able to nod or shake head in response to questions on account of the trach in situ. Moves all extremities spontaneously. Motor Exam: general weakness Psych Psych Narrative: as under neuro Mood & Affect: flat affect Assessment & Plan Assessment/Plan (1) Respiratory failure: (2) ELIDA (acute kidney injury): (3) Abnormal vaginal bleeding with endometrial thickness greater than 5 mm present on transvaginal ultrasound in postmenopausal patient: PLAN: Plan #Acute hypoxic and hypercapnic respiratory failure due to acute exacerbation of combined heart failure * S/p tracheostomy. She failed multiple spontaneous breathing trials and so had trach inserted. * Critical care on board. She was on Precedex but this has been discontinued. PEG tube also in situ. * Breathing treatments bronchodilators. Titrate oxygen to maintain saturation above 90%. * On Lasix and metolazone. Also on carvedilol. 2D echo showed EF of 15% with left ventricular akinesia and regional wall motion abnormalities. Cardiology on board. * #ELIDA on CKD stage IV with anion gap metabolic acidosis * Nephrology on board. She did require dialysis during this admission. * Management as per nephrology. #Type 2 diabetes mellitus: Tube feeds currently held due to high residuals. GI is planning on switching PEG tube to a gastrojejunostomy tube. Insulin sliding scale. Accu-Cheks every 6 hourly. #Right lower extremity ulcer and cellulitis: Currently stable. #History of CVA: On aspirin and high intensity statin Depression and anxiety: On fluoxetine #Nutrition: PEG tube in situ but tube feeds held due to increased residuals as stated above. * #Probable C. difficile: * Had initial C. difficile test which was negative but Critical care is likely false negative in light of her diarrhea. * Since PEG tube is currently not being used due to the increased residuals she could not be given oral vancomycin. * Patient therefore on IV Flagyl. DVT prophylaxis: Heparin Charges/Coding Visit Charges Inpatient E&M: 51589 Subs Hosp L2
[2025-03-05 18:04] LABS: Bedside Glucose 179 mg/dL (74-106)
--- NOTE | 2025-03-05 18:26 | PN_ITS ---
Progress Note She remains on the vent via the trach. She had a low-grade fever this morning. She is still having increased residuals and some output from her PEG tube. She is also having multiple liquid stools. Physical Exam Narrative On ventilator support s1s2 no murmurs Lungs sound clear anteriorly, no wheezing, no rales abdomen soft Edema bilateral legs, improved tunneled HD catheter dressing C/D/I Assessment & Plan Assessment/Plan (1) Respiratory failure: (2) Acute respiratory failure with hypoxia and hypercarbia: (3) Cellulitis of right anterior lower leg: PLAN: Plan 74-year-old with multiple comorbidities including severe CHF, type II cardiogenic ischemia, acute hypoxic and hypercapnic respiratory failure due to CHF exacerbation and inability to wean off of the ventilator status post tracheostomy and PEG tube placement. Currently he is having a lot of output from her PEG tube and she is having bowel movements. The differential diagnosis of high Residuals and Diarrhea with PEG Tubes: * Delayed Gastric Emptying:?The stomach may not be emptying, leading to build-up and high residuals.? She will still make about 300 mL of bile a day and that bile can induce a bile induced diarrhea as well as produce high residuals and increased fluid out from her PEG tube. * Tube Position:?The tube might be in a location that does not allow for proper drainage of gastric contents and what * Medications: Certain medications can affect gastric emptying or cause diarrhea * Infection:?Infections, particularly in the GI tract, can lead to both diarrhea and delayed gastric emptying.?We will have to check stools for infection. 03/03/2025- Stool Lactoferrin/WBC Final 03/02/25-2144 Fecal WBC Lactoferrin Positive: Fecal WBC Lactoferrin present Normal Reference Range = Negative ENTERIC PATHOGEN PANEL STOOL Final 03/03/25-1036 CAMPYLOBACTER Not Detected Salmonella Not Detected Shigella sp. Not Detected Shiga Toxin Not Detected Yersinia Not Detected VIBRIO Not Detected Norovirus Not Detected Rotavirus Not Detected Normal Reference Range = Not Detected Nucleic acid amplification test method Not detected for Campylobacter group, Salmonella species, Shigella species, Vibrio Group, Yersinia enterocolitica, EHEC (Shiga Toxin 1, Shiga Toxin 2), Norovirus Gl/Gll, and Rotavirus A. Other common stool pathogens are not detected on this panel include: Aeromonas/Plesiomonas or parasites. Order testing for these organisms separately if suspected. This is an amplified DNA test which makes it both specific and sensitive. Clostridioides Diff Toxin/Ag Final 03/02/25-2307 C. diff Ag Positive C. diff A/B Antigen C. diff Toxin Negative C. diff Toxin Interpretation of C. diff by EIA Method POS for Antigen and NEG for Toxin = Positive for toxigenic C. Difficile gene but the active toxin production NOT detected. May be a colonized carrier or toxin level is below limit of detection. CDIFF (PCR) Final 03/02/25-2237 C. Diff PCR Positive-Toxigenic C. Difficile Detected 027 027 NAP1-B1 Presumptive Negative *for epidemiolologic?use A positive C. difficile molecular test does not differentiate between an active C. difficile infection and C. difficile colonization. Use clinical judgement and paired toxin/antigen testing to identify true infection and need for treatment. Reference Range: Negative Coin GeneXpert: polymerase chain reaction (PCR) I agree with treating her for C. difficile colitis. The plan for her would likely be conversion to a GJ tube on 03/05/2025 as it looks like she will still be here due to some other ongoing issues. 03/05/2025-we attempted to get the patient down to place J-tube today. However we did not have any in stock. We will have to order them and possibly overnight them to place a J-tube for feeding and hydration. In the meantime I will add cholestyramine for presumed infectious colitis. Visit Charges Inpatient E&M: 61399 Subs Hosp L3
[2025-03-05] MEDS: Vancomycin HCl 500 MG, Sodium Chloride Irrig Solution 90 ML RC (23:41)
[2025-03-05] MEDS: Insulin Glargine-YFGN 100 UNIT/ML Pen 10 UNIT SC (23:48)
[2025-03-06] VITALS (31 sets, daily range): BP systolic 103–152; BP diastolic 54–109; PULSE 58–135; RESP 14–29; TEMP 36.8–37.5; O2SAT 90–98; BMI 36.7
[2025-03-06 00:37] LABS: Bedside Glucose 187 mg/dL (74-106)
[2025-03-06 03:32] LABS: Absolute Lymphocyte Count 1.32 X10^3/uL (0.83-4.51); Absolute Neutrophil Count 9.2 X10^3/uL (2.0-7.7); Basophil# 0.14 X10^3/uL; Basophil% 1.2 % (0-1); Eosinophil# 0.19 X10^3/uL; Eosinophils% 1.6 % (0-5); Hematocrit 33.2 % (37-47); Hemoglobin 9.8 g/dL (12.0-15.0); Lymphocyte # 1.32 X10^3/ul (0.83-4.51); Lymphocyte % 11.3 % (19-41); Mean Corp Hgb Conc 29.5 g/dL (32-36); Mean Corpuscular Hgb 21.8 pg (27.0-32.0); Mean Corpuscular Volume 73.8 fL (81-99); Mean Platelet Vol. 9.7 fl (6.2-12.0); Monocyte# 0.83 X10^3/uL; Monocyte% 7.1 % (0-10); NRBC Flagged by Analyzer 0 % (0-5); Neutrophil # 9.16 X10^3/uL (2.7-7.7); Neutrophil % 78.4 % (47-70); POSITIVE MORPHOLOGY YES; Platelet Count 297 K/mm3 (150-450); RBC Distribution Width CV 20.2 % (11.6-14.6); RBC Distribution Width SD 52.1 fl (35.1-43.9); White Blood Count 11.7 K/mm3 (4.4-11.0)
[2025-03-06 03:40] LABS: Differential Indicated SCAN CRITERIA MET
[2025-03-06 04:05] LABS: Anion Gap 15 (5-15); BUN 51 mg/dL (4-19); BUN/Creat Ratio 33.2 RATIO (10-20); Calcium,Total 9.3 mg/dL (7.6-11.0); Carbon Dioxide 20.3 mmol/L (21.0-32.0); Chloride 108 mmol/L (98-108); Creatinine, Serum 1.54 mg/dL (0.70-1.20); EST Glomerular Filtration Rate 35 (>60); Estimated Creatinine Clearance 36.21 ml/min (50-250); Glucose 199 mg/dL (70-99); Potassium 3.7 mmol/L (3.3-5.1); Sodium Level 144 mmol/L (133-145)
[2025-03-06 04:41] LABS: Anisocytosis 2+; Differential Comment SCANNED; Microcytosis 2+; Ovalocyte RARE
[2025-03-06] MEDS: metroNIDAZOLE 500 MG/100 ML BAG 100 MG IV ×4 (05:17→22:47)
[2025-03-06] MEDS: CHLORHEXIDINE GLUC 2% CLOTH 1 EACH TOWELETTE TOPICAL (05:17)
[2025-03-06] MEDS: 0.9% Saline Lock 10 ML Syringe IV ×2 (05:17→22:06)
[2025-03-06] MEDS: Vancomycin HCl 500 MG, Sodium Chloride Irrig Solution 90 ML RC ×4 (05:17→22:47)
[2025-03-06] MEDS: 0.9% Normal Saline (250mL Bag) 250 ML 15 ML IV (05:17)
[2025-03-06] MEDS: Insulin Lispro 100 UNIT/ML INSULN.PEN SC ×4 (05:17→22:47)
[2025-03-06] MEDS: Menthol/Lanolin/Calamine/Znox 113 GM Tube 1 APPLIC TOPICAL ×3 (05:18→21:10)
[2025-03-06 05:44] LABS: Bedside Glucose 175 mg/dL (74-106)
[2025-03-06] MEDS: Ipratropium 0.5 MG/2.5 ML SOLUTION INHALATION ×3 (06:50→19:32)
--- NOTE | 2025-03-06 07:35 | PN.CC_ITS ---
Assessment & Plan Assessment/Plan (1) Acute on chronic combined systolic (congestive) and diastolic (congestive) heart failure: (2) Urinary tract infection: (3) Acute respiratory failure with hypoxia and hypercarbia: (4) Chronic kidney disease (CKD): QUALIFIERS: Chronic kidney disease stage: stage 4 (GFR 15-29) Q ualified Code(s): N18.4 - Chronic kidney disease, stage 4 (severe) PLAN: Plan RECOMMENDATIONS: 1. Continue assist-control mode of mechanical ventilation. 2. Continue daily attempts at spontaneous breathing trials. 3. Physical therapy to work with the patient. 4. Continue appropriate ICU prophylaxis. 5. Continue to hold tube feeding for now. Plan for J-tube placement today per gastroenterology. 6. Once feeding tube has been placed, the patient can be discharged to LTACH from my standpoint. IMPRESSIONS: 1. Acute respiratory failure with hypoxemia and hypercapnia secondary to decompensated heart failure The patient was initially admitted to the hospital with acute decompensated congestive heart failure and UTI, but worsened from a respiratory perspective on the morning of February 08, with increasing oxygen requirement and lethargy. Subsequent ABG demonstrated acute CO2 retention, which was refractory to the use of noninvasive positive pressure ventilatory support. Therefore, the patient was intubated. The patient appears to have stabilized from a respiratory perspective following intubation. She will be continued on assist-control mode of mechanical ventilation, with a goal to wean FiO2 and PEEP as tolerated. Unfortunately, despite continued supportive care, the patient continues to fail attempts at spontaneous breathing trials. The patient was notably physically debilitated and underwent PEG tube placement on February 21 and tracheostomy placement on February 27. The patient continues to fail spontaneous breathing trials due to increasing tachypnea and low tidal volumes. She will require LTACH disposition for prolonged weaning from invasive mechanical ventilatory support. 2. Acute on chronic combined systolic and diastolic heart failure Continue medical management per cardiology recommendations. 3. Acute on chronic kidney disease Suspect that this is related to underlying cardiorenal syndrome. Continue medical management per nephrology recommendations. 4. Morbid obesity/anemia/diabetes mellitus/history of CVA/depression/anxiety Complicates care, management, recovery and prognosis. Continue supportive measures as noted above. This note was generated with Chaord[employer] software. It may contain incorrect words, spelling, and punctuation that were not noted in checking the note before signing. Subjective Subjective The patient was seen and examined at the bedside this morning. Events from the last 24 hours have been reviewed. The patient remains on assist-control mode mechanical ventilation with an FiO2 requirement of 21% PEEP of 5. The patient is documented to be overall net -15 L for the hospitalization. There are plans to proceed with J-tube placement today. The patient continues to fail breathing trials. I was notified this morning the precertification was received for LTACH disposition. Objective Data Objective Data The patient's most recent lab work, culture data and imaging studies have all been personally reviewed. Surface echocardiogram demonstrated an ejection fraction of 15%. Urine culture was positive for pansensitive E. coli. Blood cultures have not demonstrated any growth to date. Sputum culture has not demonstrated any growth to date. Vital Signs: Vital Signs Temp Pulse Resp BP Pulse Ox O2 Del Method O2 Flow Rate 99.2 F H 103 H 19 H 103/91 H 93 Mechanical Ventilator 60 03/06/25 04:00 03/06/25 07:00 03/06/25 07:00 03/06/25 07:00 03/06/25 07:00 03/06/25 07:00 03/02/25 09:47 FiO2 21 03/06/25 07:00 Oxygen Flow Rate (L/min) 60 Oxygen Delivery Method Mechanical Ventilator Weight: 220 lb 10.923 oz Body Mass Index (BMI) 36.7 Intake & Output: Intake and Output for Last 24 Hours 03/04/25 03/05/25 03/06/25 23:59 23:59 23:59 Intake Total 943.33 / 983.33 590 / 590 200 / 200 Output Total 550 / 750 675 / 900 1025 / 1025 Balance 393.33 / 233.33 -85 / -310 -825 / -825 Lab / Micro Data Attestation: I reviewed the patient's lab results. 03/06/25 03:22 03/06/25 03:22 Labs: Laboratory Results - last 24 hr 03/05/25 11:26: POC Glucose 200 H 03/05/25 17:44: POC Glucose 179 H 03/05/25 23:40: POC Glucose 187 H 03/06/25 03:22: WBC 11.7 H, RBC 4.50, Hgb 9.8 L, Hct 33.2 L, MCV 73.8 L, MCH 21.8 L, MCHC 29.5 L, RDW Std Deviation 52.1 H, RDW Coeff of Bulmaro 20.2 H, Plt Count 297, MPV 9.7, Immature Gran % (Auto) 0.400, Neut % (Auto) 78.4 H, Lymph % (Auto) 11.3 L, [place] % (Auto) 7.1, Eos % (Auto) 1.6, Baso % (Auto) 1.2 H, A bsolute Neuts (auto) 9.2 H, Absolute Lymphs (auto) 1.32, Nucleated RBC % 0, Differential Comment SCANNED, Anisocytosis 2+, Microcytosis 2+, Ovalocytes RARE, Sodium 144, Potassium 3.7, Chloride 108, Carbon Dioxide 20.3 L, Anion Gap 15, B UN 51 H, Creatinine 1.54 H, Estim Creat Clear Calc 36.21 L, Est GFR (MDRD) Non- Af 35 L, BUN/Creatinine Ratio 33.2 H, Glucose 199 H, Calcium 9.3 03/06/25 05:16: POC Glucose 175 H Micro: Microbiology 03/02/25 20:05 Stool Stool Lactoferrin - Final 03/02/25 20:05 Stool Enteric Bacteriology - Final 03/02/25 20:05 Stool C. difficile GDH Antigen & Toxins - Final 03/02/25 20:05 Stool Clostridioides difficile (PCR) - Final 02/05/25 12:15 Blood Culture (Wb) - Left Wrist Blood Culture - Final No growth in 5 days. 02/05/25 12:04 Blood Culture (Wb) - Right Hand Blood Culture - Final No growth in 5 days. 02/08/25 11:15 Sputum, Induced/Lukens Gram Stain - Final 02/08/25 11:15 Sputum, Induced/Lukens Respiratory Culture - Final Mixed normal respiratory dave. No Streptococcus pneumoniae, beta-hemolytic Streptococcus or Staphylococcus aureus isolated. 02/08/25 00:05 Stool Stool Occult Blood (TREVOR) - Final 02/05/25 11:20 Urine Catheter - Catheter Urine Culture - Final Presumptive E. coli 02/05/25 16:50 Nasal Secretion MRSA (PCR) - Final 02/05/25 16:50 Wound - Leg, Left Skin and Soft Tissue MRSA/MSSA (PCR - Final ABG Data ABG results: ABG 02/28/25 12:09 Specimen Type ART Sample Site R RADIAL pH 7.36 Bicarbonate Actual 17.8 L Total CO2 19 Base Excess -8 L O2 Saturation 91 L O2 % 21.0 ABG pCO2 31.4 L ABG pO2 62 L Harvey Test POSITIVE Vent Mode SPONT POC PEEP 5 POC Pressure Suppt 5 Blood Gas Notified Whom YOVANI Clinical Comments SBT X1 HR Radiography Diagnostic Testing: Radiology Impression Transvaginal US 03/04/25 09:03 IMPRESSION: Heterogeneously thickened endometrium, with likely blood products in place. However an underlying lesion can not be excluded. Recommend further evaluation with direct visualization and gynecologic consult. [facility] Rhythm Strip Rhythm Strip: Sinus Rhythm Rate: 104 Physical Exam Const alert, oriented x3 and no apparent distress General Appearance: cooperative and patient mechanically ventilated HEENT normocephalic and head/scalp atraumatic HEENT Narrative: Tracheostomy in place Eyes PERRL, EOMs intact bilaterally and conjunctivae normal Neck supple Neck Narrative: Stable tracheostomy site General: trachea midline Chest inspection of chest normal Resp Auscultation: diminished lung sounds; Negative for rales, rhonchi or wheezes Cardio regular rate and regular rhythm GI normal to inspection, nondistended, normoactive bowel sounds GI Narrative: PEG tube in place. Extremity General Extremity: edema; Negative for clubbing Skin Skin Narrative: Wrapped extremities. Neuro Neuro Narrative: Alert and able to follow simple commands. Psych Mood & Affect: flat affect Charges/Coding Visit Charges Inpatient E&M: 33288 Subs Hosp L3
--- NOTE | 2025-03-06 08:31 | CASEMGMT ---
Addendum entered by Na Luna 03/06/25 09:32: Updated progress notes and clinicals sent to [facility] via [employer] at this time. Addendum entered by Na Luna 03/06/25 09:25: The attending on today at [facility] is Dr. Butt Addendum entered by Na Luna 03/06/25 09:24: [facility] reports that the pre-cert is good for 72 hours. [facility] states that they can accept the pt today after J-tube placement if the hospitalist is OK with that. Dr. Hastings and Dr. Pool notified. Original Note: Maximo from [facility] notifies this RN CM that precert has been obtained this morning. Dr. Hastings and Dr. Pool notified. TC to the ICU floor and the pt's RN notifies this RN CM that the pt is requiring J-tube placement today with a time TBD contingent on GI availability. J-tube placement was attempted yesterday (03/05) but the item was out of stock at the time. Maximo from [facility] notified. CM to follow.
--- NOTE | 2025-03-06 09:37 | CASEMGMT ---
Addendum entered by Na Luna 03/06/25 12:59: 11:45 - Dr. Hastings states to this RN CM that the J-Tube is scheduled to be placed tomorrow (03/07). Addendum entered by Na Luna 03/06/25 10:07: Pt RN states that they recently talked with Shanice who reports that the J-Tube will be arriving tomorrow by 1000. TC to [facility]imo from [facility] and notified. [facility] reports that the pre-cert is good for 72 hours and that they can accept the pt tomorrow if needed. Pt RN updated. CM to follow. Original Note: This publications writer collaborated with the pt's RN who states that the pt is now on the schedule for an EGD today at 1300. However, GI reported to the pt's RN that [facility] still does not have any J-Tubes in stock and are working on getting these acquired still. [facility] Walker notified. CM to follow. Choco LUNA RN CM
[2025-03-06] MEDS: Pantoprazole Sodium 40 MG in 0.9% Normal Saline (100mL MB+) 100 ML 330 MG IV (10:14)
[2025-03-06] MEDS: Chlorhexidine 15 ML PO ×2 (10:15→21:09)
--- NOTE | 2025-03-06 10:16 | WOUNDNOTE ---
wound photo: right foot
[2025-03-06] MEDS: NYSTATIN 500,000 UNIT/5 ML UDC 500000 UNIT PO ×4 (10:17→21:09)
--- NOTE | 2025-03-06 11:58 | PN.RENAL_ITS ---
Subjective Subjective no new events temps noted waiting for prior auth for LTACH Objective Data Objective Data Vital Signs: Vital Signs Temp Pulse Resp BP Pulse Ox O2 Del Method O2 Flow Rate 99.2 F H 96 24 H 131/68 H 95 Mechanical Ventilator 60 03/06/25 04:00 03/06/25 11:00 03/06/25 11:00 03/06/25 11:00 03/06/25 11:00 03/06/25 11:05 03/02/25 09:47 FiO2 21 03/06/25 11:05 Oxygen Flow Rate (L/min) 60 Oxygen Delivery Method Mechanical Ventilator Weight: 100.1 kg Body Mass Index (BMI) 36.7 Intake & Output: Intake and Output for Last 24 Hours 03/04/25 03/05/25 03/06/25 23:59 23:59 23:59 Intake Total 943.33 / 983.33 590 / 590 410 / 410 Output Total 550 / 750 675 / 900 1025 / 1025 Balance 393.33 / 233.33 -85 / -310 -615 / -615 Lab / Micro Data 03/06/25 03:22 03/06/25 03:22 Labs: Laboratory Results - last 24 hr 03/05/25 17:44: POC Glucose 179 H 03/05/25 23:40: POC Glucose 187 H 03/06/25 03:22: WBC 11.7 H, RBC 4.50, Hgb 9.8 L, Hct 33.2 L, MCV 73.8 L, MCH 21.8 L, MCHC 29.5 L, RDW Std Deviation 52.1 H, RDW Coeff of Bulmaro 20.2 H, Plt Count 297, MPV 9.7, Immature Gran % (Auto) 0.400, Neut % (Auto) 78.4 H, Lymph % (Auto) 11.3 L, [place] % (Auto) 7.1, Eos % (Auto) 1.6, Baso % (Auto) 1.2 H, A bsolute Neuts (auto) 9.2 H, Absolute Lymphs (auto) 1.32, Nucleated RBC % 0, Differential Comment SCANNED, Anisocytosis 2+, Microcytosis 2+, Ovalocytes RARE, Sodium 144, Potassium 3.7, Chloride 108, Carbon Dioxide 20.3 L, Anion Gap 15, B UN 51 H, Creatinine 1.54 H, Estim Creat Clear Calc 36.21 L, Est GFR (MDRD) Non- Af 35 L, BUN/Creatinine Ratio 33.2 H, Glucose 199 H, Calcium 9.3 03/06/25 05:16: POC Glucose 175 H Micro: Microbiology 03/02/25 20:05 Stool Stool Lactoferrin - Final 03/02/25 20:05 Stool Enteric Bacteriology - Final 03/02/25 20:05 Stool C. difficile GDH Antigen & Toxins - Final 03/02/25 20:05 Stool Clostridioides difficile (PCR) - Final 02/05/25 12:15 Blood Culture (Wb) - Left Wrist Blood Culture - Final No growth in 5 days. 02/05/25 12:04 Blood Culture (Wb) - Right Hand Blood Culture - Final No growth in 5 days. 02/08/25 11:15 Sputum, Induced/Lukens Gram Stain - Final 02/08/25 11:15 Sputum, Induced/Lukens Respiratory Culture - Final Mixed normal respiratory dave. No Streptococcus pneumoniae, beta-hemolytic Streptococcus or Staphylococcus aureus isolated. 02/08/25 00:05 Stool Stool Occult Blood (TREVOR) - Final 02/05/25 11:20 Urine Catheter - Catheter Urine Culture - Final Presumptive E. coli 02/05/25 16:50 Nasal Secretion MRSA (PCR) - Final 02/05/25 16:50 Wound - Leg, Left Skin and Soft Tissue MRSA/MSSA (PCR - Final Rhythm Strip Rhythm Strip: Sinus Rhythm Rate: 104 Physical Exam Narrative On ventilator support s1s2 no murmurs Lungs sound clear anteriorly, no wheezing, no rales abdomen soft Edema bilateral legs, improved tunneled HD catheter dressing C/D/I Const Orientation / Consciousness: lethargic Nutritional Appearance: obese HEENT normocephalic Neck no lymphadenopathy Resp Auscultation: rhonchi Cardio regular rate GI non-tender Skin no rashes or lesions noted Neuro Sensorium / Orientation: lethargic Psych Memory / Cognition: cognition impaired Assessment & Plan Assessment/Plan (1) ELIDA (acute kidney injury): PLAN: CKD stage IIIb. Baseline creatinine is around 1.5-1.7. Initially required dialysis, was off dialysis for few days. Last week we had to do 1 more dialysis mostly related to acidosis. However since then creatinine has been relatively stable. Urine output, even though on the lower side is stable. Bicarbonate 20. Potassium is okay. No plans for extubation, she is status post trach. Hold off on renal replacement therapy for today. Will continue to assess needs. dc with TDC in place.
--- NOTE | 2025-03-06 13:14 | PN_ITS ---
Progress Note Patient has been having persistent nausea vomiting with high output from her G- tube. Physical Exam Const alert, oriented x3, no apparent distress and healthy appearing General Appearance: cooperative GI normal to inspection, nondistended, normoactive bowel sounds, soft to palpation, non-tender and non-distended Percussion: normal to percussion Rectal Exam: deferred Assessment & Plan Assessment/Plan (1) Respiratory failure: (2) Acute respiratory failure with hypoxia and hypercarbia: (3) Cellulitis of right anterior lower leg: PLAN: Plan 74-year-old with multiple comorbidities including severe CHF, type II cardiogenic ischemia, acute hypoxic and hypercapnic respiratory failure due to CHF exacerbation and inability to wean off of the ventilator status post tracheostomy and PEG tube placement. Currently he is having a lot of output from her PEG tube and she is having bowel movements. The differential diagnosis of high Residuals and Diarrhea with PEG Tubes: * Delayed Gastric Emptying:?The stomach may not be emptying, leading to build-up and high residuals.? She will still make about 300 mL of bile a day and that bile can induce a bile induced diarrhea as well as produce high residuals and increased fluid out from her PEG tube. * Tube Position:?The tube might be in a location that does not allow for proper drainage of gastric contents and what * Medications: Certain medications can affect gastric emptying or cause diarrhea * Infection:?Infections, particularly in the GI tract, can lead to both diarrhea and delayed gastric emptying.?We will have to check stools for infection. 03/03/2025- Stool Lactoferrin/WBC Final 03/02/25-214 Fecal WBC Lactoferrin Positive: Fecal WBC Lactoferrin present Normal Reference Range = Negative ENTERIC PATHOGEN PANEL STOOL Final 03/03/25-1036 CAMPYLOBACTER Not Detected Salmonella Not Detected Shigella sp. Not Detected Shiga Toxin Not Detected Yersinia Not Detected VIBRIO Not Detected Norovirus Not Detected Rotavirus Not Detected Normal Reference Range = Not Detected Nucleic acid amplification test method Not detected for Campylobacter group, Salmonella species, Shigella species, Vibrio Group, Yersinia enterocolitica, EHEC (Shiga Toxin 1, Shiga Toxin 2), Norovirus Gl/Gll, and Rotavirus A. Other common stool pathogens are not detected on this panel include: Aeromonas/Plesiomonas or parasites. Order testing for these organisms separately if suspected. This is an amplified DNA test which makes it both specific and sensitive. Clostridioides Diff Toxin/Ag Final 03/02/25-2307 C. diff Ag Positive C. diff A/B Antigen C. diff Toxin Negative C. diff Toxin Interpretation of C. diff by EIA Method POS for Antigen and NEG for Toxin = Positive for toxigenic C. Difficile gene but the active toxin production NOT detected. May be a colonized carrier or toxin level is below limit of detection. CDIFF (PCR) Final 03/02/25-2237 C. Diff PCR Positive-Toxigenic C. Difficile Detected 027 027 NAP1-B1 Presumptive Negative *for epidemiolologic?use A positive C. difficile molecular test does not differentiate between an active C. difficile infection and C. difficile colonization. Use clinical judgement and paired toxin/antigen testing to identify true infection and need for treatment. Reference Range: Negative [employer] GeneXpert: polymerase chain reaction (PCR) I agree with treating her for C. difficile colitis. The plan for her would likely be conversion to a GJ tube on 03/05/2025 as it looks like she will still be here due to some other ongoing issues. 03/05/2025-we attempted to get the patient down to place J-tube today. However we did not have any in stock. We will have to order them and possibly overnight them to place a J-tube for feeding and hydration. In the meantime I will add cholestyramine for presumed infectious colitis. 03/06/2025-she will undergo EGD to evaluate the tube position. We discussed possibly putting the GJ tube in. However we need to assess her upper GI tract first. Visit Charges Inpatient E&M: 08927 Subs Hosp L3
[2025-03-06] MEDS: Cefazolin 2 GM in 0.9% Normal Saline (100mL Bag) 100 ML IV (13:30)
--- NOTE | 2025-03-06 13:43 | RAD_ITS ---
PROCEDURE: SMALL BOWEL SERIES ONLY 03/06/2025 REASON FOR EXAM: FOLLOW THROUGH FOR PEG AND FOR POSSIBLE J TUBE. TECHNIQUE: 5 views of the abdomen following administration of oral contrast through the gastrostomy tube COMPARISON: CT abdomen and pelvis on 03/02/2025 FINDINGS: See below. RAD/Small Bowel Series Only IMPRESSION: There is oral contrast present within the stomach, and later also extending int o the small and large bowel on the imaging obtained at 3.5 hours. No radiographic evidence of bowel obstruction. Osseous structures are unchanged. Temperature probe projects over the pelvis. Reading Location: [facility]
[2025-03-06] MEDS: fentaNYL 100 MCG/2 ML Ampul 50 MCG IV (13:50)
[2025-03-06] MEDS: Midazolam 2 MG/2 ML Syringe 4 MG IV (13:50)
[2025-03-06] MEDS: guaiFENesin 10 ML UDC (200MG/10ML) NG (13:57)
[2025-03-06 14:01] LABS: Bedside Glucose 158 mg/dL (74-106)
--- NOTE | 2025-03-06 14:17 | OP.EGD_ITS ---
Patient Name: Rosa Myers Procedure Date: 03/06/2025 12:55 PM Date of : 1950 Age: 74 Procedure: Upper GI endoscopy Indications: Epigastric abdominal pain, Functional Dyspepsia Providers: Tyson Power DO Medicines: Fentanyl 100 micrograms IV, Midazolam 4 mg IV Patient Profile: This is a 74 year old female. Refer to note in patient chart for documentation of history and physical. Patient has symptoms of acute abdominal distention. Complications: No immediate complications. Procedure: Pre-Anesthesia Assessment: - Prior to the procedure, a History and Physical was performed, and patient medications and allergies were reviewed. The patient is competent. The risks and benefits of the procedure and the sedation options and risks were discussed with the patient. All questions were answered and informed consent was obtained. Patient identification and proposed procedure were verified by the physician in the pre-procedure area. Mental Status Examination: alert and oriented. Airway Examination: normal oropharyngeal airway and neck mobility. Respiratory Examination: clear to auscultation. CV Examination: normal. Prophylactic Antibiotics: The patient does not require prophylactic antibiotics. Prior Anticoagulants: The patient has taken no anticoagulant or antiplatelet agents except for NSAID medication. ASA Grade Assessment: II - A patient with mild systemic disease. After reviewing the risks and benefits, the patient was deemed in satisfactory condition to undergo the procedure. The anesthesia plan was to use monitored anesthesia care (MAC). Immediately prior to administration of medications, the patient was re-assessed for adequacy to receive sedatives. The heart rate, respiratory rate, oxygen saturations, blood pressure, adequacy of pulmonary ventilation, and response to care were monitored throughout the procedure. The physical status of the patient was re-assessed after the procedure. After obtaining informed consent, the endoscope was passed under direct vision. Throughout the procedure, the patient's blood pressure, pulse, and oxygen saturations were monitored continuously. The Endoscope was introduced through the mouth, and advanced to the fourth part of the duodenum. Small bowel enteroscopy was deemed necessary. The upper GI endoscopy was accomplished without difficulty. The patient tolerated the procedure well. Scope In: 1:35:48 PM Scope Out: 1:39:29 PM Total Procedure Duration Time 0 hours 3 minutes 41 seconds Findings: Non-severe esophagitis with no bleeding was found 34 to 40 cm from the incisors. There was evidence of an intact gastrostomy with a patent G-tube present in the gastric body. This was characterized by healthy appearing mucosa. Moderate inflammation characterized by congestion (edema) and granularity was found in the duodenal bulb. Impression: - Non-severe erosive esophagitis with no bleeding. - Intact gastrostomy with a patent G-tube present characterized by healthy appearing mucosa. - Duodenitis. - No specimens collected. Recommendation: - Discharge patient to home. - Resume previous diet. - Continue present medications. - Repeat upper endoscopy to assess disease activity. - KUB with Gastrografin Procedure Code(s): --- Professional --- 10672, Small intestinal endoscopy, enteroscopy beyond second portion of duodenum, not including ileum; diagnostic, including collection of specimen(s) by brushing or washing, when performed (separate procedure) CPT copyright 2021 [employer]. All rights reserved. The codes documented in this report are preliminary and upon certified technician review may be revised to meet current compliance requirements. Tyson Power DO 03/06/2025 2:16:34 PM This report has been signed electronically. Number of Addenda: 0 Note Initiated On: 03/06/2025 12:55 PM
--- NOTE | 2025-03-06 14:17 | OP.CCLET_ITS ---
03/06/2025 Nabor James [address] [place] [address] Re : Upper GI endoscopy procedure for Rosa Louis Dear Dr. James This procedure was performed on Thursday, March 06, 2025. My impressions and recommendations are as follows: Impressions : - Non-severe erosive esophagitis with no bleeding. - Intact gastrostomy with a patent G-tube present characterized by healthy appearing mucosa. - Duodenitis. - No specimens collected. Recommendations : - Discharge patient to home. - Resume previous diet. - Continue present medications. - Repeat upper endoscopy to assess disease activity. - KUB with Gastrografin My findings are described in the full procedure note, which is enclosed. If I can be of further assistance, please feel free to contact me at . Sincerely, Tyson Power, 03/06/2025 2:16:34 PM This report has been signed electronically.
--- NOTE | 2025-03-06 14:22 | PN_ITS ---
Subjective Subjective Patient seen and examined. She remains on the vent via the trach. She has obtained precert for LTAC. However, she is due to have the gastrojejunostomy tube inserted tomorrow. She has remained hemodynamically stable Objective Data Objective Data Vital Signs: Vital Signs Temp Pulse Resp BP Pulse Ox O2 Del Method O2 Flow Rate 99.2 F H 91 14 143/109 H 90 Mechanical Ventilator 60 03/06/25 04:00 03/06/25 13:55 03/06/25 13:55 03/06/25 12:00 03/06/25 13:55 03/06/25 12:00 03/02/25 09:47 FiO2 21 03/06/25 13:55 Oxygen Flow Rate (L/min) 60 Oxygen Delivery Method Mechanical Ventilator Weight: 220 lb 10.923 oz Body Mass Index (BMI) 36.7 Intake & Output: Intake and Output for Last 24 Hours 03/04/25 03/05/25 03/06/25 23:59 23:59 23:59 Intake Total 943.33 / 983.33 590 / 590 410 / 410 Output Total 550 / 750 675 / 900 1025 / 1025 Balance 393.33 / 233.33 -85 / -310 -615 / -615 Lab / Micro Data 03/06/25 03:22 03/06/25 03:22 Labs: Laboratory Results - last 24 hr 03/05/25 17:44: POC Glucose 179 H 03/05/25 23:40: POC Glucose 187 H 03/06/25 03:22: WBC 11.7 H, RBC 4.50, Hgb 9.8 L, Hct 33.2 L, MCV 73.8 L, MCH 21.8 L, MCHC 29.5 L, RDW Std Deviation 52.1 H, RDW Coeff of Bulmaro 20.2 H, Plt Count 297, MPV 9.7, Immature Gran % (Auto) 0.400, Neut % (Auto) 78.4 H, Lymph % (Auto) 11.3 L, [place] % (Auto) 7.1, Eos % (Auto) 1.6, Baso % (Auto) 1.2 H, A bsolute Neuts (auto) 9.2 H, Absolute Lymphs (auto) 1.32, Nucleated RBC % 0, Differential Comment SCANNED, Anisocytosis 2+, Microcytosis 2+, Ovalocytes RARE, Sodium 144, Potassium 3.7, Chloride 108, Carbon Dioxide 20.3 L, Anion Gap 15, B UN 51 H, Creatinine 1.54 H, Estim Creat Clear Calc 36.21 L, Est GFR (MDRD) Non- Af 35 L, BUN/Creatinine Ratio 33.2 H, Glucose 199 H, Calcium 9.3 03/06/25 05:16: POC Glucose 175 H 03/06/25 10:52: POC Glucose 158 H Micro: Microbiology 03/02/25 20:05 Stool Stool Lactoferrin - Final 03/02/25 20:05 Stool Enteric Bacteriology - Final 03/02/25 20:05 Stool C. difficile GDH Antigen & Toxins - Final 03/02/25 20:05 Stool Clostridioides difficile (PCR) - Final 02/05/25 12:15 Blood Culture (Wb) - Left Wrist Blood Culture - Final No growth in 5 days. 02/05/25 12:04 Blood Culture (Wb) - Right Hand Blood Culture - Final No growth in 5 days. 02/08/25 11:15 Sputum, Induced/Lukens Gram Stain - Final 02/08/25 11:15 Sputum, Induced/Lukens Respiratory Culture - Final Mixed normal respiratory dave. No Streptococcus pneumoniae, beta-hemolytic Streptococcus or Staphylococcus aureus isolated. 02/08/25 00:05 Stool Stool Occult Blood (TREVOR) - Final 02/05/25 11:20 Urine Catheter - Catheter Urine Culture - Final Presumptive E. coli 02/05/25 16:50 Nasal Secretion MRSA (PCR) - Final 02/05/25 16:50 Wound - Leg, Left Skin and Soft Tissue MRSA/MSSA (PCR - Final Rhythm Strip Rhythm Strip: Sinus Rhythm Rate: 104 Physical Exam Const alert and no apparent distress Constitutional Narrative: Class II obesity with BMI of 36.3. Trach in situ. Able to shake her head or nod in response to questions. General Appearance: cooperative, intubated and patient mechanically ventilated HEENT normocephalic, head/scalp atraumatic, moist oral mucous membranes and oropharynx normal Eyes PERRL, EOMs intact bilaterally and conjunctivae normal Neck supple and no JVD Neck Narrative: trach in situ, on vent via the trach Lymph Lymphatic: no lymphedema noted Resp Resp Narrative: Mildly to diminished breath sounds bibasilarly. No wheezes or crackles. on ventilator via trach Auscultation: crackles Cardio regular rate, regular rhythm, S1 normal heart sound, S2 normal heart sound and no murmurs GI normal to inspection, nondistended, normoactive bowel sounds, soft to palpation, non-tender and non-distended; Negative for hepatosplenomegaly GI Narrative: PEG tube in situ Extremity normal capillary refill, no clubbing, cyanosis or edema and no calf tenderness General Extremity: edema and no tenderness to palpation of joints or extremities Skin no rashes or lesions noted General Skin Exam: no breakdown Neuro Neuro Narrative: Able to nod or shake head in response to questions on account of the trach in situ. Moves all extremities spontaneously. Sensorium / Orientation: sedated on vent Motor Exam: general weakness Psych Psych Narrative: as under neuro Appearance: intubated Mood & Affect: flat affect Assessment & Plan Assessment/Plan (1) Respiratory failure: (2) ELIDA (acute kidney injury): (3) Abnormal vaginal bleeding with endometrial thickness greater than 5 mm present on transvaginal ultrasound in postmenopausal patient: PLAN: Plan #Acute hypoxic and hypercapnic respiratory failure due to acute exacerbation of combined heart failure * S/p tracheostomy. She failed multiple spontaneous breathing trials and so had trach inserted. * Critical care on board. She was on Precedex but this has been discontinued. PEG tube also in situ. * Breathing treatments bronchodilators. Titrate oxygen to maintain saturation above 90%. * On Lasix and metolazone. Also on carvedilol. 2D echo showed EF of 15% with left ventricular akinesia and regional wall motion abnormalities. Cardiology on board. * #ELIDA on CKD stage IV with anion gap metabolic acidosis * Nephrology on board. She did require dialysis during this admission. * Management as per nephrology. #Type 2 diabetes mellitus: * Tube feeds currently held due to high residuals. GI is planning on switching PEG tube to a gastrojejunostomy tube. Insulin sliding scale. Accu-Cheks every 6 hourly. * To have the GJ tube inserted tomorrow. #Right lower extremity ulcer and cellulitis: Currently stable. Largely resolved. #History of CVA: On aspirin and high intensity statin Depression and anxiety: On fluoxetine #Nutrition: PEG tube in situ but tube feeds held due to increased residuals as stated above. To have gastrojejunostomy tube inserted. * #History of CKD: Creatinine is 1.54 has been around her baseline. Will monitor. #Probable C. difficile: * Had initial C. difficile test which was negative but Critical care is likely false negative in light of her diarrhea. * Since PEG tube is currently not being used due to the increased residuals she could not be given oral vancomycin. * Patient therefore on IV Flagyl. DVT prophylaxis: Heparin Disposition: For DC to LTAC once pre-CERT obtained Charges/Coding Visit Charges Inpatient E&M: 92931 Subs Hosp L2
[2025-03-06 17:58] LABS: Bedside Glucose 155 mg/dL (74-106)
[2025-03-06] MEDS: Metoprolol Tartrate 5 MG/5 ML Vial IV (22:06)
[2025-03-06] MEDS: Insulin Glargine-YFGN 100 UNIT/ML Pen 10 UNIT SC (22:47)
[2025-03-06 23:12] LABS: Bedside Glucose 150 mg/dL (74-106)
[2025-03-07] VITALS (20 sets, daily range): BP systolic 126–156; BP diastolic 58–81; PULSE 76–140; RESP 14–23; TEMP 37.4–37.6; O2SAT 92–98; BMI 36.6
[2025-03-07] MEDS: Ipratropium 0.5 MG/2.5 ML SOLUTION INHALATION ×2 (01:01→07:50)
[2025-03-07] MEDS: dilTIAZem 25 MG/5 ML Vial 10 MG IV BOLUS (02:29)
[2025-03-07 03:54] LABS: Absolute Lymphocyte Count 1.26 X10^3/uL (0.83-4.51); Absolute Neutrophil Count 9.2 X10^3/uL (2.0-7.7); Basophil# 0.12 X10^3/uL; Eosinophils% 1.7 % (0-5); Hematocrit 33.8 % (37-47); Hemoglobin 9.9 g/dL (12.0-15.0); Lymphocyte # 1.26 X10^3/ul (0.83-4.51); Lymphocyte % 10.8 % (19-41); Mean Corp Hgb Conc 29.3 g/dL (32-36); Mean Corpuscular Hgb 21.8 pg (27.0-32.0); Mean Corpuscular Volume 74.3 fL (81-99); Mean Platelet Vol. 9.9 fl (6.2-12.0); Monocyte# 0.86 X10^3/uL; Monocyte% 7.4 % (0-10); NRBC Flagged by Analyzer 0 % (0-5); Neutrophil # 9.18 X10^3/uL (2.7-7.7); Neutrophil % 78.8 % (47-70); POSITIVE MORPHOLOGY YES; Platelet Count 272 K/mm3 (150-450); RBC Distribution Width CV 21.1 % (11.6-14.6); RBC Distribution Width SD 53.1 fl (35.1-43.9); Red Blood Count 4.55 M/mm3 (4.2-5.4); White Blood Count 11.7 K/mm3 (4.4-11.0)
[2025-03-07 04:15] LABS: Differential Indicated SCAN CRITERIA MET
[2025-03-07 04:22] LABS: Anion Gap 16 (5-15); BUN 49 mg/dL (4-19); BUN/Creat Ratio 33.2 RATIO (10-20); Calcium,Total 9.2 mg/dL (7.6-11.0); Carbon Dioxide 19.9 mmol/L (21.0-32.0); Chloride 114 mmol/L (98-108); Creatinine, Serum 1.46 mg/dL (0.70-1.20); EST Glomerular Filtration Rate 37 (>60); Estimated Creatinine Clearance 38.38 ml/min (50-250); Glucose 167 mg/dL (70-99); Potassium 3.3 mmol/L (3.3-5.1); Sodium Level 150 mmol/L (133-145)
[2025-03-07 04:56] LABS: Differential Comment SCANNED; Platelet Estimate ADEQUATE (ADEQ)
[2025-03-07 04:57] LABS: Anisocytosis 2+; Ovalocyte 2+; Polychromasia 1+; Schistocytes RARE
[2025-03-07] MEDS: metroNIDAZOLE 500 MG/100 ML BAG 100 MG IV ×2 (05:19→11:34)
[2025-03-07] MEDS: CHLORHEXIDINE GLUC 2% CLOTH 1 EACH TOWELETTE TOPICAL (05:20)
[2025-03-07] MEDS: Menthol/Lanolin/Calamine/Znox 113 GM Tube 1 APPLIC TOPICAL (05:20)
[2025-03-07] MEDS: Vancomycin HCl 500 MG, Sodium Chloride Irrig Solution 90 ML RC ×2 (05:55→11:34)
[2025-03-07 06:18] LABS: Bedside Glucose 143 mg/dL (74-106)
--- NOTE | 2025-03-07 07:16 | PN.CC_ITS ---
Assessment & Plan Assessment/Plan (1) Acute on chronic combined systolic (congestive) and diastolic (congestive) heart failure: (2) Urinary tract infection: (3) Acute respiratory failure with hypoxia and hypercarbia: (4) Chronic kidney disease (CKD): QUALIFIERS: Chronic kidney disease stage: stage 4 (GFR 15-29) Q ualified Code(s): N18.4 - Chronic kidney disease, stage 4 (severe) PLAN: Plan RECOMMENDATIONS: 1. Continue assist-control mode of mechanical ventilation. 2. Continue daily attempts at spontaneous breathing trials. 3. Physical therapy to work with the patient. 4. Continue appropriate ICU prophylaxis. 5. Okay to resume tube feeding. No current plans for J-tube placement. 6. The patient is medically stable for discharge to LTACH. IMPRESSIONS: 1. Acute respiratory failure with hypoxemia and hypercapnia secondary to decompensated heart failure The patient was initially admitted to the hospital with acute decompensated congestive heart failure and UTI, but worsened from a respiratory perspective on the morning of February 08, with increasing oxygen requirement and lethargy. Subsequent ABG demonstrated acute CO2 retention, which was refractory to the use of noninvasive positive pressure ventilatory support. Therefore, the patient was intubated. The patient appears to have stabilized from a respiratory perspective following intubation. She will be continued on assist-control mode of mechanical ventilation, with a goal to wean FiO2 and PEEP as tolerated. Unfortunately, despite continued supportive care, the patient continues to fail attempts at spontaneous breathing trials. The patient was notably physically debilitated and underwent PEG tube placement on February 21 and tracheostomy placement on February 27. The patient continues to fail spontaneous breathing trials due to increasing tachypnea and low tidal volumes. She will require LTACH disposition for prolonged weaning from invasive mechanical ventilatory support. 2. Acute on chronic combined systolic and diastolic heart failure Continue medical management per cardiology recommendations. 3. Acute on chronic kidney disease Suspect that this is related to underlying cardiorenal syndrome. Continue medical management per nephrology recommendations. 4. Morbid obesity/anemia/diabetes mellitus/history of CVA/depression/anxiety Complicates care, management, recovery and prognosis. Continue supportive measures as noted above. This note was generated with [employer] software. It may contain incorrect words, spelling, and punctuation that were not noted in checking the note before signing. Subjective Subjective The patient was seen and examined at the bedside this morning. Events from the last 24 hours have been reviewed. The patient is currently afebrile, hemodynamically stable and maintaining appropriate oxygen saturations on assist- control mode of mechanical ventilation. She remains overall net -15.7 L for the hospitalization. The patient was reevaluated by gastroenterology yesterday, who confirmed G-tube was patent with healthy-appearing mucosa. A KUB with Gastrografin was subsequently completed, which demonstrated transit into the small large bowel. Accordingly, I spoke with gastroenterology this morning, who indicated that it was okay to resume tube feeding at a low rate. There are tentatively no plans to place J-tube. The patient would otherwise be stable for discharge to her LTACH. Objective Data Objective Data The patient's most recent lab work, culture data and imaging studies have all been personally reviewed. Surface echocardiogram demonstrated an ejection fraction of 15%. Urine culture was positive for pansensitive E. coli. Blood cultures have not demonstrated any growth to date. Sputum culture has not demonstrated any growth to date. Vital Signs: Vital Signs Temp Pulse Resp BP Pulse Ox O2 Del Method O2 Flow Rate 99.3 F H 95 18 126/67 H 93 Mechanical Ventilator 60 03/07/25 07:00 03/07/25 07:00 03/07/25 07:00 03/07/25 07:00 03/07/25 07:00 03/07/25 07:00 03/02/25 09:47 FiO2 21 03/07/25 07:00 Oxygen Flow Rate (L/min) 60 Oxygen Delivery Method Mechanical Ventilator Weight: 220 lb 3.869 oz Body Mass Index (BMI) 36.6 Intake & Output: Intake and Output for Last 24 Hours 03/05/25 03/06/25 03/07/25 23:59 23:59 23:59 Intake Total 590 / 590 870 / 870 200 / 200 Output Total 675 / 900 2625 / 2625 175 / 175 Balance -85 / -310 -1755 / -1755 Lab / Micro Data Attestation: I reviewed the patient's lab results. 03/07/25 03:40 03/07/25 03:40 Labs: Laboratory Results - last 24 hr 03/06/25 10:52: POC Glucose 158 H 03/06/25 17:34: POC Glucose 155 H 03/06/25 22:47: POC Glucose 150 H 03/07/25 03:40: WBC 11.7 H, RBC 4.55, Hgb 9.9 L, Hct 33.8 L, MCV 74.3 L, MCH 21.8 L, MCHC 29.3 L, RDW Std Deviation 53.1 H, RDW Coeff of Bulmaro 21.1 H, Plt Count 272, MPV 9.9, Immature Gran % (Auto) 0.300, Neut % (Auto) 78.8 H, Lymph % (Auto) 10.8 L, [place] % (Auto) 7.4, Eos % (Auto) 1.7, Baso % (Auto) 1.0, Absolute Neuts (auto) 9.2 H, Absolute Lymphs (auto) 1.26, Nucleated RBC % 0, Differential Comment SCANNED, Platelet Estimate ADEQUATE, Polychromasia 1+, Anisocytosis 2+, Ovalocytes 2+, Schistocytes RARE, Sodium 150 H, Potassium 3.3, Chloride 114 H, C arbon Dioxide 19.9 L, Anion Gap 16 H, BUN 49 H, Creatinine 1.46 H, Estim Creat Clear Calc 38.38 L, Est GFR (MDRD) Non-Af 37 L, BUN/Creatinine Ratio 33.2 H, G lucose 167 H, Calcium 9.2 03/07/25 05:18: POC Glucose 143 H Micro: Microbiology 03/02/25 20:05 Stool Stool Lactoferrin - Final 03/02/25 20:05 Stool Enteric Bacteriology - Final 03/02/25 20:05 Stool C. difficile GDH Antigen & Toxins - Final 03/02/25 20:05 Stool Clostridioides difficile (PCR) - Final 02/05/25 12:15 Blood Culture (Wb) - Left Wrist Blood Culture - Final No growth in 5 days. 02/05/25 12:04 Blood Culture (Wb) - Right Hand Blood Culture - Final No growth in 5 days. 02/08/25 11:15 Sputum, Induced/Lukens Gram Stain - Final 02/08/25 11:15 Sputum, Induced/Lukens Respiratory Culture - Final Mixed normal respiratory dave. No Streptococcus pneumoniae, beta-hemolytic Streptococcus or Staphylococcus aureus isolated. 02/08/25 00:05 Stool Stool Occult Blood (TREVOR) - Final 02/05/25 11:20 Urine Catheter - Catheter Urine Culture - Final Presumptive E. coli 02/05/25 16:50 Nasal Secretion MRSA (PCR) - Final 02/05/25 16:50 Wound - Leg, Left Skin and Soft Tissue MRSA/MSSA (PCR - Final ABG Data ABG results: ABG 02/28/25 12:09 Specimen Type ART Sample Site R RADIAL pH 7.36 Bicarbonate Actual 17.8 L Total CO2 19 Base Excess -8 L O2 Saturation 91 L O2 % 21.0 ABG pCO2 31.4 L ABG pO2 62 L Harvey Test POSITIVE Vent Mode SPONT POC PEEP 5 POC Pressure Suppt 5 Blood Gas Notified Whom YOVANI Clinical Comments SBT X1 HR Radiography Diagnostic Testing: Radiology Impression Small Bowel X-Ray 03/06/25 13:43 IMPRESSION: There is oral contrast present within the stomach, and later also extending into the small and large bowel on the imaging obtained at 3.5 hours. No radiographic evidence of bowel obstruction. Osseous structures are unchanged. Temperature probe projects over the pelvis. Reading Location: [id number] Rhythm Strip Rhythm Strip: Sinus Rhythm Rate: 104 Physical Exam Const alert, oriented x3 and no apparent distress General Appearance: cooperative and patient mechanically ventilated HEENT normocephalic and head/scalp atraumatic HEENT Narrative: Tracheostomy in place Eyes PERRL, EOMs intact bilaterally and conjunctivae normal Neck supple Neck Narrative: Stable tracheostomy site General: trachea midline Chest inspection of chest normal Resp Auscultation: diminished lung sounds; Negative for rales, rhonchi or wheezes Cardio regular rate and regular rhythm GI normal to inspection, nondistended, normoactive bowel sounds GI Narrative: PEG tube in place. Extremity General Extremity: edema; Negative for clubbing Skin Skin Narrative: Wrapped extremities. Neuro Neuro Narrative: Alert and able to follow simple commands. Psych Mood & Affect: flat affect Charges/Coding Visit Charges Inpatient E&M: 95658 Subs Hosp L2
[2025-03-07] MEDS: hydrALAZINE 10 MG Tablet PO (07:42)
[2025-03-07] MEDS: Aspirin 81 MG TAB.CHEW GT (07:43)
[2025-03-07] MEDS: Isosorbide DN 10 MG Tablet 5 MG PO (07:43)
[2025-03-07] MEDS: FLUoxetine 10 MG Capsule PO (07:43)
[2025-03-07] MEDS: Carvedilol 6.25 MG Tablet PO (07:44)
[2025-03-07] MEDS: Chlorhexidine 15 ML PO (07:45)
[2025-03-07] MEDS: Pantoprazole Sodium 40 MG in 0.9% Normal Saline (100mL MB+) 100 ML 330 MG IV (07:58)
[2025-03-07] MEDS: NYSTATIN 500,000 UNIT/5 ML UDC 500000 UNIT PO (07:58)
[2025-03-07] MEDS: Insulin Glargine-YFGN 100 UNIT/ML Pen 10 UNIT SC (08:07)
[2025-03-07] MEDS: Vital High Protein 1,000 ML 10 ML GT (09:30)
--- NOTE | 2025-03-07 10:04 | CASEMGMT ---
Addendum entered by [facility] Jeremy 03/07/25 13:11: DC Packet sent to [facility] via [facility] at this time. Maximo from [facility] states that they have everything that they require and denies further needs from this RN CM. Addendum entered by Na Luna 03/07/25 12:11: DC Instructions and updated nephrology note sent to [facility] via [facility] at this time. Addendum entered by [facility] Luna 03/07/25 10:48: Pt's son (Marcell) has been notified of pt transfer today. TC to pt's , no answer. VM left. [facility] 03/07/25 10:16: Transport has been scheduled through [facility] for 1300 today by the DC Brass Molder Helper. Dr Hastings notified that [facility] policy states the physician is to complete the following: Transfer to extended Care instructions, DC Summary, signed med list, specific wound care instructions, diet, tube feed orders, oxygen settings and/ or any other pertinent pt info. Original Note: Per the production editor, hospitalist, and GI consult, the pt now does not require a J-Tube and is stable for DC today to the LTACH. Updated progress notes and clinicals sent to [facility] via [facility] at this time. Dr. Hastings states that transport can be scheduled for 1300 today. DC policy and planning manager notified. N2N number provided to the pt's RN. Maximo from [facility] reports that the accepting MD today is doctor Mejia. Dr. Hastings notified.
--- NOTE | 2025-03-07 10:50 | CASEMGMT ---
Discharge Planning Cot transport scheduled for 1p with [facility]. Nursing, RN CM, and pts son (Marcell) updated. VM left for pts . Mary Spears DC Planning Asst.
--- NOTE | 2025-03-07 11:53 | PN.RENAL_ITS ---
Subjective Subjective no new events Objective Data Objective Data Vital Signs: Vital Signs Temp Pulse Resp BP Pulse Ox O2 Del Method O2 Flow Rate 99.3 F H 95 16 156/58 H 93 Mechanical Ventilator 60 03/07/25 07:00 03/07/25 11:00 03/07/25 11:00 03/07/25 11:00 03/07/25 11:00 03/07/25 11:00 03/02/25 09:47 FiO2 21 03/07/25 11:00 Oxygen Flow Rate (L/min) 60 Oxygen Delivery Method Mechanical Ventilator Weight: 99.9 kg Body Mass Index (BMI) 36.6 Intake & Output: Intake and Output for Last 24 Hours 03/05/25 03/06/25 03/07/25 23:59 23:59 23:59 Intake Total 590 / 590 870 / 870 310 / 310 Output Total 675 / 900 2625 / 2625 175 / 175 Balance -85 / -310 -1755 / -1755 135 / 135 Lab / Micro Data 03/07/25 03:40 03/07/25 03:40 Labs: Laboratory Results - last 24 hr 03/06/25 10:52: POC Glucose 158 H 03/06/25 17:34: POC Glucose 155 H 03/06/25 22:47: POC Glucose 150 H 03/07/25 03:40: WBC 11.7 H, RBC 4.55, Hgb 9.9 L, Hct 33.8 L, MCV 74.3 L, MCH 21.8 L, MCHC 29.3 L, RDW Std Deviation 53.1 H, RDW Coeff of Bulmaro 21.1 H, Plt Count 272, MPV 9.9, Immature Gran % (Auto) 0.300, Neut % (Auto) 78.8 H, Lymph % (Auto) 10.8 L, [place] % (Auto) 7.4, Eos % (Auto) 1.7, Baso % (Auto) 1.0, Absolute Neuts (auto) 9.2 H, Absolute Lymphs (auto) 1.26, Nucleated RBC % 0, Differential Comment SCANNED, Platelet Estimate ADEQUATE, Polychromasia 1+, Anisocytosis 2+, Ovalocytes 2+, Schistocytes RARE, Sodium 150 H, Potassium 3.3, Chloride 114 H, C arbon Dioxide 19.9 L, Anion Gap 16 H, BUN 49 H, Creatinine 1.46 H, Estim Creat Clear Calc 38.38 L, Est GFR (MDRD) Non-Af 37 L, BUN/Creatinine Ratio 33.2 H, G lucose 167 H, Calcium 9.2 03/07/25 05:18: POC Glucose 143 H Micro: Microbiology 03/02/25 20:05 Stool Stool Lactoferrin - Final 03/02/25 20:05 Stool Enteric Bacteriology - Final 03/02/25 20:05 Stool C. difficile GDH Antigen & Toxins - Final 03/02/25 20:05 Stool Clostridioides difficile (PCR) - Final 02/05/25 12:15 Blood Culture (Wb) - Left Wrist Blood Culture - Final No growth in 5 days. 02/05/25 12:04 Blood Culture (Wb) - Right Hand Blood Culture - Final No growth in 5 days. 02/08/25 11:15 Sputum, Induced/Lukens Gram Stain - Final 02/08/25 11:15 Sputum, Induced/Lukens Respiratory Culture - Final Mixed normal respiratory dave. No Streptococcus pneumoniae, beta-hemolytic Streptococcus or Staphylococcus aureus isolated. 02/08/25 00:05 Stool Stool Occult Blood (TREVOR) - Final 02/05/25 11:20 Urine Catheter - Catheter Urine Culture - Final Presumptive E. coli 02/05/25 16:50 Nasal Secretion MRSA (PCR) - Final 02/05/25 16:50 Wound - Leg, Left Skin and Soft Tissue MRSA/MSSA (PCR - Final Radiography Diagnostic Testing: Radiology Impression Small Bowel X-Ray 03/06/25 13:43 IMPRESSION: There is oral contrast present within the stomach, and later also extending into the small and large bowel on the imaging obtained at 3.5 hours. No radiographic evidence of bowel obstruction. Osseous structures are unchanged. Temperature probe projects over the pelvis. Reading Location: [id number] Rhythm Strip Rhythm Strip: Sinus Rhythm Rate: 104 Physical Exam Narrative On ventilator support s1s2 no murmurs Lungs sound clear anteriorly, no wheezing, no rales abdomen soft Edema bilateral legs, improved tunneled HD catheter dressing C/D/I Const Orientation / Consciousness: lethargic Nutritional Appearance: obese HEENT normocephalic Neck no lymphadenopathy Resp Auscultation: rhonchi Cardio regular rate GI non-tender Skin no rashes or lesions noted Neuro Sensorium / Orientation: lethargic Psych Memory / Cognition: cognition impaired Assessment & Plan Assessment/Plan (1) ELIDA (acute kidney injury): PLAN: CKD stage IIIb. Baseline creatinine is around 1.5-1.7. Initially required dialysis, was off dialysis for few days. Last week we had to do 1 more dialysis mostly related to acidosis. However since then creatinine has been relatively stable. urine output is good continue to hold HD Hypernatremia. due to insensible losses. increase FWF to 200 cc q 4 hours dw hospitalist
[2025-03-07 11:55] LABS: Bedside Glucose 144 mg/dL (74-106)
--- NOTE | 2025-03-07 12:06 | DS.PCM_ITS ---
Providers Date of Admission: 02/05/25 Date of Discharge: 03/07/25 Primary Care Physician: Dr. Nabor James MD Consultations 02/05/25 15:54 Consult: Cardiology Routine Consulting Provider: Paul Cardona Reason for Consult: Acute on chronic severe heart failure EMERGENT Consult: No MD Notified: Yes Date Notified: 02/05/25 Time Notified: 13:46 Method of Notification: ED Physician Initiated Consult: Nephrology Routine Consulting Provider: Roosevelt Moss Reason for Consult: ELIDA on CKD 4 EMERGENT Consult: No MD Notified: Yes Date Notified: 02/05/25 Time Notified: 13:47 Method of Notification: Verbal 02/05/25 16:40 Consult: Onc/Wound/gas prover Routine Comment: Reason for Consult:: Foot/leg wounds 02/08/25 08:15 Consult: Iap Displays Analyst / Pulmonary Medicine Routine Consulting Provider: Intensivists/Pulmonary Med Reason for Consult: Acute on chronic combined respiratory failure, HF exacerbation, ELIDA on CKD EMERGENT Consult: No MD Notified: Yes Date Notified: 02/08/25 Time Notified: 08:15 Method of Notification: Text 02/08/25 13:18 Consult: Iap Displays Analyst / Pulmonary Medicine Routine Consulting Provider: Intensivists/Pulmonary Med Reason for Consult: acute on chr resp failure, on bipap, HF EMERGENT Consult: No Notified: Yes Date Notified: 02/08/25 Time Notified: 08:18 Method of Notification: Text 02/13/25 12:01 Consult: General Surgery Routine Consulting Provider: Paul Brown Reason for Consult: Tunneled dialysis catheter EMERGENT Consult: No Notified: Yes Date Notified: 02/13/25 Time Notified: 12:01 Method of Notification: Verbal 02/17/25 15:01 Consult: ENT Routine Consulting Provider: Anjum Small Reason for Consult: Trach EMERGENT Consult: No MD Notified: Yes Date Notified: 02/20/25 Time Notified: 07:44 Method of Notification: Verbal Comments:: Dr. Pool stated he talked to Dr. Small 02/17/25 15:02 Consult: Gastroenterology Routine Consulting Provider: Renan [facility] Reason for Consult: PEG tube placement EMERGENT Consult: No Notified: Yes Date Notified: 02/17/25 Time Notified: 15:02 Method of Notification: Text 03/04/25 15:21 Consult: WEB APPLICATIONS ARCHITECT Routine Consulting Provider: Sagar Rendon Reason for Consult: vaginal bleeding, transvaginal US results EMERGENT Consult: No MD Notified: Yes Date Notified: 03/04/25 Time Notified: 15:21 Method of Notification: Text Reason For Visit: CHF EXA, RIGHT LEG ULCER Diagnosis Discharge Diagnosis (1) ELIDA (acute kidney injury): Status: Acute Code(s): N17.9 - Acute kidney failure, unspecified Plan #Acute hypoxic and hypercapnic respiratory failure due to acute exacerbation of combined heart failure * S/p tracheostomy. She failed multiple spontaneous breathing trials and so had trach inserted. * Critical care on board. She was on Precedex but this has been discontinued. PEG tube also in situ. * Breathing treatments bronchodilators. Titrate oxygen to maintain saturation above 90%. * On Lasix and metolazone. Also on carvedilol. 2D echo showed EF of 15% with left ventricular akinesia and regional wall motion abnormalities. Cardiology on board. * #ELIDA on CKD stage IV with anion gap metabolic acidosis * Nephrology on board. She did require dialysis during this admission. * Management as per nephrology. #Type 2 diabetes mellitus: * Tube feeds currently held due to high residuals. GI is planning on switching PEG tube to a gastrojejunostomy tube. Insulin sliding scale. Accu-Cheks every 6 hourly. * To have the GJ tube inserted tomorrow. #Right lower extremity ulcer and cellulitis: Currently stable. Largely resolved. #History of CVA: On aspirin and high intensity statin Depression and anxiety: On fluoxetine #Nutrition: PEG tube in situ but tube feeds held due to increased residuals as stated above. To have gastrojejunostomy tube inserted. * #History of CKD: Creatinine is 1.54 has been around her baseline. Will monitor. #Probable C. difficile: * Had initial C. difficile test which was negative but Critical care is likely false negative in light of her diarrhea. * Since PEG tube is currently not being used due to the increased residuals she could not be given oral vancomycin. * Patient therefore on IV Flagyl. DVT prophylaxis: Heparin Disposition: For DC to LTAC once pre-CERT obtained Medications at Discharge Home Medications blood sugar diagnostic (Accu-Chek Alvina Plus test strips) 07/13/24 vitamin B complex (Complex B-100 tablet,extended release) 1 tab PO DAILY HEALTH MAINTENENCE 08/19/24 IV with Additives 60 mls/hr GT 03/07/25 acetaminophen 325 mg tablet 650 mg (2 x 325 mg) feeding tube Q6H PRN Pain 1-10 Or Fever >100.7 #60 tabs 03/07/25 amlodipine 5 mg tablet 5 mg feeding tube DAILY HEART #0 tabs 03/07/25 atorvastatin 40 mg tablet 40 mg feeding tube QHS CHOLESTEROL #30 tabs 03/07/25 carvedilol 6.25 mg tablet 6.25 mg feeding tube BIDCM #60 tabs 03/07/25 cholestyramine (with sugar) 4 gram powder for susp in a packet 1 ea feeding tube BIDAC #60 ea 03/07/25 dapagliflozin propanediol 10 mg tablet (Farxiga) 10 mg feeding tube DAILY DIABETES #90 tabs 03/07/25 fluoxetine 10 mg capsule 10 mg feeding tube DAILY DEPERSSION #30 caps 03/07/25 hydralazine 10 mg tablet 10 mg feeding tube TID #90 tabs 03/07/25 insulin glargine-yfgn 100 unit/mL (3 mL) subcutaneous pen 10 unit (0.1 mL) subcut BID #15 mL 03/07/25 isosorbide dinitrate 10 mg tablet 5 mg (1/2 x 10 mg) PO BID #60 tabs 03/07/25 vancomycin 1,000 mg intravenous injection [address] Q6 #5 ea 03/07/25 Hospital Course Procedures 2-D Echocardiogram, Peg tube placement and - (Tracheostomy) Summary of Care Provided Minutes Spent on Discharge: 55 Hospital Course: Patient is a 74-year-old female with an extensive past medical history as outlined was admitted through the ED on 02/05/2025 with a complaint of shortness of breath she had been going on for about a week prior to admission. She also had assisted bilateral lower extremity edema. She had to be placed emergently on BiPAP due to worsening shortness of breath on admission. She did have a wound on the right lower extremity with surrounding cellulitis and redness as well as induration. She has been seen in the wound center by podiatry. She was admitted and managed for acute on chronic respiratory failure due to heart failure exacerbation. She was initially admitted to the ICU. Cardiology was consulted. Her BNP was markedly elevated at over 30,000 and troponins were also elevated. She had known EF of 35% per echo done in February 2024. She was also diagnosed with ELIDA on CKD. She was also found to have UTI. Her respiratory status worsened subsequently and was nonresponsive to BiPAP and so she was emergently intubated. Patient had a very prolonged and protracted hospital course. Nephrology was consulted on account of worsening kidney disease and she had to be started on dialysis. Repeat 2D echo done showed EF had dropped from 35% down to 15% with segmental wall motion abnormalities in the inferior and posterior segments with the remainder of the left ventricle being globally dilated. She was diuresed with IV Lasix. She also had elevated pulmonary artery pressures of 58 mmHg. As stated patient had a very prolonged and protracted hospital course. She could not be weaned off of the ventilator despite numerous spontaneous breathing trials. GI was therefore consulted and she had a PEG tube inserted. ENT was also consulted and she had a trach inserted. She required dialysis during this admission as stated. She was started on tube feeds via the PEG tube. Again this was complicated by increased residuals so plan was to switch the PEG tube to a gastrojejunostomy tube. However she was subsequently able to tolerate the tube feeds via the PEG tube so the plan to do the gastrojejunostomy tube was aborted. Hospital course was also complicated by diarrhea and initial C. difficile test was negative but it was thought to be a false negative in light of her diarrhea. She was therefore placed on Flagyl and oral vancomycin after she was able to use her PEG tube again. Hospital course was also complicated by vaginal bleeding and this subsequently stopped. She was reviewed by gynecology. Patient was discharged to the LTAC on 03/07/2025 and is to follow-up with her primary care doctor and cardiology as well as nephrology and gynecology. Patient was seen and examined on the day of discharge. She was lying calmly in bed. She was on the vent via the trach. She was able to nod or shake her head in response to questions. Per her nurse, there were no active events overnight. Labs and vitals reviewed. Home medication reviewed and reconciled. Physical Exam Const alert and no apparent distress Constitutional Narrative: Class II obesity with BMI of 36.3. Trach in situ. Able to shake her head or nod in response to questions. General Appearance: cooperative, intubated and patient mechanically ventilated HEENT normocephalic, head/scalp atraumatic, moist oral mucous membranes and oropharynx normal Mouth: oral and palatal mucosa normal Eyes EOMs intact bilaterally and conjunctivae normal Neck supple Neck Narrative: trach in situ, on vent via the trach Lymph Lymphatic: no lymphadenopathy noted and no lymphedema noted Resp Resp Narrative: Mildly to diminished breath sounds bibasilarly. No wheezes or crackles. on ventilator via trach Cardio regular rate, regular rhythm, S1 normal heart sound, S2 normal heart sound and no murmurs GI normal to inspection, nondistended, normoactive bowel sounds, soft to palpation and non-tender GI Narrative: PEG tube in situ Extremity normal capillary refill and no calf tenderness General Extremity: edema and no tenderness to palpation of joints or extremities Skin no rashes or lesions noted General Skin Exam: no breakdown Neuro Neuro Narrative: Able to nod or shake head in response to questions on account of the trach in situ. Moves all extremities spontaneously. Motor Exam: general weakness Psych Psych Narrative: as under neuro Appearance: intubated Mood & Affect: flat affect Weight / BMI Weight Weight: 220 lb 3.869 oz Body Mass Index (BMI) 36.6 ABG / Lab / Microbiology Data 03/07/25 03:40 03/07/25 03:40 Laboratory: Laboratory Results - last 24 hr 03/06/25 10:52: POC Glucose 158 H 03/06/25 17:34: POC Glucose 155 H 03/06/25 22:47: POC Glucose 150 H 03/07/25 03:40: WBC 11.7 H, RBC 4.55, Hgb 9.9 L, Hct 33.8 L, MCV 74.3 L, MCH 21.8 L, MCHC 29.3 L, RDW Std Deviation 53.1 H, RDW Coeff of Bulmaro 21.1 H, Plt Count 272, MPV 9.9, Immature Gran % (Auto) 0.300, Neut % (Auto) 78.8 H, Lymph % (Auto) 10.8 L, [place] % (Auto) 7.4, Eos % (Auto) 1.7, Baso % (Auto) 1.0, Absolute Neuts (auto) 9.2 H, Absolute Lymphs (auto) 1.26, Nucleated RBC % 0, Differential Comment SCANNED, Platelet Estimate ADEQUATE, Polychromasia 1+, Anisocytosis 2+, Ovalocytes 2+, Schistocytes RARE, Sodium 150 H, Potassium 3.3, Chloride 114 H, C arbon Dioxide 19.9 L, Anion Gap 16 H, BUN 49 H, Creatinine 1.46 H, Estim Creat Clear Calc 38.38 L, Est GFR (MDRD) Non-Af 37 L, BUN/Creatinine Ratio 33.2 H, G lucose 167 H, Calcium 9.2 03/07/25 05:18: POC Glucose 143 H 03/07/25 11:33: POC Glucose 144 H Microbiology: Microbiology 03/02/25 20:05 Stool Stool Lactoferrin - Final 03/02/25 20:05 Stool Enteric Bacteriology - Final 03/02/25 20:05 Stool C. difficile GDH Antigen & Toxins - Final 03/02/25 20:05 Stool Clostridioides difficile (PCR) - Final 02/05/25 12:15 Blood Culture (Wb) - Left Wrist Blood Culture - Final No growth in 5 days. 02/05/25 12:04 Blood Culture (Wb) - Right Hand Blood Culture - Final No growth in 5 days. 02/08/25 11:15 Sputum, Induced/Lukens Gram Stain - Final 02/08/25 11:15 Sputum, Induced/Lukens Respiratory Culture - Final Mixed normal respiratory dave. No Streptococcus pneumoniae, beta-hemolytic Streptococcus or Staphylococcus aureus isolated. 02/08/25 00:05 Stool Stool Occult Blood (TREVOR) - Final 02/05/25 11:20 Urine Catheter - Catheter Urine Culture - Final Presumptive E. coli 02/05/25 16:50 Nasal Secretion MRSA (PCR) - Final 02/05/25 16:50 Wound - Leg, Left Skin and Soft Tissue MRSA/MSSA (PCR - Final Radiography Diagnostic Testing: Radiology Impression Small Bowel X-Ray 03/06/25 13:43 IMPRESSION: There is oral contrast present within the stomach, and later also extending into the small and large bowel on the imaging obtained at 3.5 hours. No radiographic evidence of bowel obstruction. Osseous structures are unchanged. Temperature probe projects over the pelvis. Reading Location: [id number] D/C Instructions Discharge Diet: Low fat / Low cholesterol Call your doctor if you observe: Fever of 101 or Higher, Shortness of breath, Dizziness and Chest pain DC O2, CPAP, BIPAP Needs Home O2 Discharge instructions: Yes Type of respiratory needs?: Oxygen (ventilator) Oxygen frequency: Continuous (ventilator via trach) Continuous oxygen liters per minute: 3 DC home with Oxygen: No Meaningful Use Info Meaningful Use Meaningful Use Diagnoses (Choose all that apply): CHF CHF DIANA/ARB ordered at discharge?: No Reason DIANA/ARB not ordered?: Worsening renal disease Documented LVEF (%): 15 Ischemic Stroke Statin Dosing Therapy Reference: STATIN DOSE THERAPY REFERENCE: * Patients > 75 years receive moderate or high dose statin therapy. * Patients 75 years or YOUNGER should receive HIGH intensity statin dose unless contraindicated. You will be required to document reason for non-treatment if statin daily dose does not meet guidelines. HIGH DOSE STATIN THERAPY DAILY Atorvastatin > than or = to 40 mg Rosuvastatin > than or = to 20 mg Amlodipine + Atorvastatin > than or = to 2.5/40 mg Ezetimibe + Simvastatin 10/80 mg Simvastatin 80mg Discharge Plan Admission Admit Date/Time: 02/05/25 13:07 Primary Reason for Your Visit: acute on chronic hypoxic respiratory failure, heart failure, ELIDA on CKD IV Attending Provider: Ana Laura Hastings Primary Care Provider: Nabor James Consulting Providers: Paul Cardona; Roosevelt Moss; James Whelan; Vinayak De Los Santos; Yaw Thompson; Jose Pool; Oscar Weinstein; Noe Salcido; Joni Wood; Lizbeth Avery; Red Bustamante; Enrique Neff; Armando Rangel; Lina Fernando; Jessa Solorzano; Nilsa Hilton; Lea,Ernesto; Francisco,Ab; Dwight Hines; Noel,Thad; Tg Waller; Jam De La Rosa; Mike Martinez; Jeromy Cleary; Anthony Dillard; Zachery Gomez; Paul Brown; Herbert Cardona; Anjum Small; Ana Laura Hastings; Sagar Rendon Instructions Patient Instructions: Suctioning Your Tracheostomy, ED Tracheostomy Care Discharge Orders/Prescriptions Prescriptions: New IV with Additives Vital High Protein 1000 ML 60 mls/hr GT Ordered By: Ana Laura Hastings MD Last Taken: 03/07/25 09:30 10 mls/hr isosorbide dinitrate 10 mg Tablet 5 mg PO BID Qty: 60 1RF insulin glargine-yfgn 100 unit/mL (3 mL) Insulin Pen 10 unit subcut BID Qty: 15 1RF hydralazine 10 mg Tablet 10 mg feeding tube TID Qty: 90 1RF cholestyramine (with sugar) 4 gram Powder In Packet 1 ea feeding tube BIDAC Qty: 60 2RF carvedilol 6.25 mg Tablet 6.25 mg feeding tube BIDCM Qty: 60 1RF vancomycin 1,000 mg Recon Soln [address] Q6 Qty: 5 0RF Continued (DME) Accu-Chek Alvina Plus test strp Strip MISCELLANEOUS Complex B-100 Tablet Extended Release 1 tab PO DAILY Changed atorvastatin 40 mg tablet 40 mg feeding tube QHS Qty: 30 2RF acetaminophen 325 mg Tablet 650 mg feeding tube Q6H PRN (Reason: Pain 1-10 Or Fever >100.7) Qty: 60 2RF amlodipine 5 mg Tablet 5 mg feeding tube DAILY Qty: 0 0RF fluoxetine 10 mg capsule 10 mg feeding tube DAILY Qty: 30 0RF dapagliflozin propanediol [Farxiga] 10 mg tablet 10 mg feeding tube DAILY Qty: 90 3RF Discontinued aspirin [Adult Aspirin Regimen] 81 mg tablet,delayed release (DR/EC) 81 mg PO DAILY metolazone 5 mg tablet 5 mg PO DAILY furosemide 40 mg tablet 40 mg PO BID Qty: 60 3RF insulin lispro [Humalog KwikPen Insulin] 100 unit/mL Insulin Pen 15 unit subcut ACHS Protocol: 1. Sliding Scale Insulin Low Dosing Condition: 150-224 mg/dl = 1 unit Condition: 225-299 mg/dl = 2 units Condition: 300-374 mg/dl = 3 units Condition: 375-499 mg/dl = 4 units Condition: Greater than 449 call physician Protocol Text: - Use for Total Daily Dose of Insulin 15-27 units - Thin, elderly, renal patients LOW DOSING ALGORITHM carvedilol 12.5 mg Tablet 12.5 mg PO BIDCM Qty: 30 2RF losartan 50 mg tablet 50 mg PO DAILY Qty: 30 2RF Referrals / Follow Up: Harry Stallings MD [Med Staff - Active Staff] - Within 2 Weeks Roosevelt Moss MD [Med Staff - Consulting] - Within 2 Weeks Sagar Rendon MD [Med Staff - Active Staff] - Within 2 Weeks (see for vaginal bleeding) Nabor James MD [Primary Care Provider] - Within 1 Week Disposition Disposition (needs filled in before D/C Order can be placed): Neuropsychologist Acute Care Charges/Coding Visit Charges Inpatient E&M: 93809 Disch Hosp >30min
== END 2025-03-07 14:50 | DRG 4 ==
LOC: ED 13:24 → ICU 14:02
PROVIDERS: Family Medicine; Internal Medicine; Internal Medicine Critical Care Medicine; Internal Medicine Gastroenterology; Internal Medicine Nephrology; Internal Medicine Pulmonary Disease; Otolaryngology; Surgery; Admitting Provider Internal Medicine; Emergency Provider Emergency Medicine; PCP Family Medicine; Visit Provider Student in an Organized Health Care Education/Training Program
PROC: 0DJ08ZZ Inspection of Upper Intestinal Tract, Via Natural or Artificial Opening Endoscopic (ICD-10-PCS; CPT 43235; principal; 2025-02-21 13:40)
PROC: 0B110F4 Bypass Trachea to Cutaneous with Tracheostomy Device, Open Approach (ICD-10-PCS; principal; 2025-02-27 15:45)
DX: J96.21 Acute and chronic respiratory failure with hypoxia (principal); A04.72 Enterocolitis due to Clostridium difficile, not specified as recurrent; E87.20 Acidosis, unspecified; E87.29 Other acidosis; I24.89 Other forms of acute ischemic heart disease; J90 Pleural effusion, not elsewhere classified; I50.42 Chronic combined systolic (congestive) and diastolic (congestive) heart failure; Z68.41 Body mass index [BMI] 40.0-44.9, adult; N18.4 Chronic kidney disease, stage 4 (severe); I13.0 Hypertensive heart and chronic kidney disease with heart failure and stage 1 through stage 4 chronic kidney disease, or unspecified chronic kidney disease; L97.913 Non-pressure chronic ulcer of unspecified part of right lower leg with necrosis of muscle; K56.7 Ileus, unspecified; N17.9 Acute kidney failure, unspecified; J98.11 Atelectasis; L03.115 Cellulitis of right lower limb; I47.10 Supraventricular tachycardia, unspecified; D63.8 Anemia in other chronic diseases classified elsewhere; E11.22 Type 2 diabetes mellitus with diabetic chronic kidney disease; J44.9 Chronic obstructive pulmonary disease, unspecified; I27.21 Secondary pulmonary arterial hypertension; F32.A Depression, unspecified; I34.0 Nonrheumatic mitral (valve) insufficiency; D50.9 Iron deficiency anemia, unspecified; E87.5 Hyperkalemia; Z79.4 Long term (current) use of insulin; I44.7 Left bundle-branch block, unspecified; I25.5 Ischemic cardiomyopathy; E78.2 Mixed hyperlipidemia; I25.10 Atherosclerotic heart disease of native coronary artery without angina pectoris; E11.65 Type 2 diabetes mellitus with hyperglycemia; E11.621 Type 2 diabetes mellitus with foot ulcer; E66.01 Morbid (severe) obesity due to excess calories; E11.42 Type 2 diabetes mellitus with diabetic polyneuropathy; F41.9 Anxiety disorder, unspecified; J96.22 Acute and chronic respiratory failure with hypercapnia; L97.509 Non-pressure chronic ulcer of other part of unspecified foot with unspecified severity; R14.0 Abdominal distension (gaseous); K29.80 Duodenitis without bleeding; K20.90 Esophagitis, unspecified without bleeding; Z86.73 Personal history of transient ischemic attack (TIA), and cerebral infarction without residual deficits; Z79.84 Long term (current) use of oral hypoglycemic drugs; Z95.5 Presence of coronary angioplasty implant and graft; Z82.49 Family history of ischemic heart disease and other diseases of the circulatory system; Z87.891 Personal history of nicotine dependence; Z83.3 Family history of diabetes mellitus; Z79.2 Long term (current) use of antibiotics; B96.20 Unspecified Escherichia coli [E. coli] as the cause of diseases classified elsewhere; R41.0 Disorientation, unspecified; R13.10 Dysphagia, unspecified; N93.9 Abnormal uterine and vaginal bleeding, unspecified; N85.00 Endometrial hyperplasia, unspecified
CPT/HCPCS: 31500; 31720; 36415; 36600; 51702; 71045; 74018; 74176; 74250; 76000; 76830; 80048; 80061; 81001; 82274; 82550; 82728; 82803; 82962; 83036; 83540; 83550; 83605; 83615; 83630; 83735; 83880; 84100; 84443; 84484; 85014; 85018; 85025; 85045; 85384; 85610; 85730; 86850; 86900; 86901; 87040; 87070; 87077; 87086; 87088; 87177; 87186; 87205; 87209; 87340; 87493; 87506; 87640; 87641; 90937; 93005; 93306; 94002; 94003; 94640; 94660; 94668; 94760; 94762; 97110; 97162; 97166; 97530; 97535; 97803; 99152; 99153; 99285; C1750; P9016; Q9957; A4216; C8929; G0257; J0612; J1938; J2916

== ENCOUNTER → 2025-06-01 06:25 | Outpatient (REF) | payer MEDICARE, MEDICAID, SELFPAY ==
[2025-06-01 08:07] LABS: Hematocrit 21.6 % (37-47); Hemoglobin 6.5 g/dL (12.0-15.0); Mean Corp Hgb Conc 30.1 g/dL (32-36); Mean Corpuscular Volume 83.4 fL (81-99); Mean Platelet Vol. 10.1 fl (6.2-12.0); POSITIVE MORPHOLOGY YES; Platelet Count 215 K/mm3 (150-450); RBC Distribution Width CV 20.5 % (11.6-14.6); RBC Distribution Width SD 63.2 fl (35.1-43.9); Red Blood Count 2.59 M/mm3 (4.2-5.4); White Blood Count 4.9 K/mm3 (4.4-11.0)
[2025-06-01 08:09] LABS: Scan Indicated on CBC? Y/N YES- FLAGS NOTED
[2025-06-01 08:32] LABS: Differential Comment SCANNED
== END ==
LOC: OLS.SANC 06:25
PROVIDERS: PCP Family Medicine
DX: E11.9 Type 2 diabetes mellitus without complications (principal)
CPT/HCPCS: 36415; 85027

== ENCOUNTER → 2025-06-27 05:00 | Outpatient (REF) | payer MEDICARE, MEDICAID, SELFPAY | LOC: OLS.SANC 05:00 | PROVIDERS: PCP Family Medicine | DX: E11.9 Type 2 diabetes mellitus without complications (principal); J96.10 Chronic respiratory failure, unspecified whether with hypoxia or hypercapnia | CPT/HCPCS: 87070; 87077; 87186; 87205 ==

== ENCOUNTER → 2025-07-16 05:00 | Outpatient (REF) | payer MEDICARE, MEDICAID, SELFPAY ==
--- OUTSIDE RECORDS SUMMARY | 2025-07-16 03:24 | XMS RPT_ITS | CCD ---
Author Organization [facility] Care Team Providers Care Wide Load Escort Name Role Phone Dr. Amado James Primary Care Provider Dr. Cindy Snyder Emergency Provider Dr. Marva Mckeon Attending Provider [phone] Dr. Amado James Primary Care Provider Dr. Juancarlos oPlanco Attending Provider Dr. Marva Mckeonit Provider Dr. Marva Mckeon Other Provider Dr. Tyson Power Attending Provider Dr. Zachery Gomez Attending Provider [phone] Zachery Gomez Other Provider Dr. Harry Stallings Attending Provider Amado James MD Primary Care Provider Dr. Cindy Snyder Referring Provider Dr. Harry Stallings Attending Provider Dr. Zachery Gomez Referring Provider [phone] Zachery Gomez Referring Provider Dr. Amado James Referring Provider Dr. Amado James Primary Care Provider Dr. Cindy Snyder Emergency Provider [phone] Dr. Marva Mckeonit Provider Dr. Marva Mckeon Other Provider Tono Dr. Mehta Attending Provider Dr. Harry Stallings Other Provider MD Harry Stallings Referring Provider Unavailable Amado James MD Primary Care Provider Amaod James MD Primary Care Provider Dr. Amado James Primary Care Provider Dr. Amado James Referring Provider Good FULL STACK DEVELOPER, FULL STACK DEVELOPERErlindaC Carmela Attending Provider Amado James MD Primary Care Provider Caroline GROUNDMAN/LINEMAN.METALLURGIST HELPERRufina Unavailable Qi GROUNDMAN/LINEMAN.METALLURGIST HELPER, Maciel Unavailable AMADO JAMES Primary Care Unavailable MOSES, AMADO Olvera Referring Unavailable AMADO JAMES Attending Unavailable MOSES, AMADO Olvera Primary Care Unavailable RUFINA SOARES Attending Unavailable MOSES, AMADO Olvera Primary Care Unavailable ELDERSAURABH, AMADO Olvera Referring Unavailable MOSES, AMADO Olvera Primary Care Unavailable MOSES, AMADO Olvera Primary Care Unavailable MOSES, AMADO Olvera Referring Unavailable MOSES, AMADO Olvera Primary Care Unavailable MOSES, AMADO Olvera Attending Unavailable MOSES, AMADO Olvera Primary Care Unavailable ELDERSAURABH, AMADO Olvera Attending Unavailable ELDERSAURABH, AMADO Olvera Attending Unavailable MOSES, AMADO Olvera Primary Care Unavailable RUFINA SOARES Attending Unavailable MOSES, AMADO Olvera Primary Care Unavailable Dr. Amado James MD Primary Care Provider [phone] Dr. Leyda Erwin DPM Attending Provider Dr. Leyda Erwin DPM Referring Provider Dr. Amado James MD Referring Provider [phone] Janusz Arzola Attending Provider Janusz Arzola Referring Provider Dr. Eduardo Corona DO Emergency Provider Jason MOLINA, Dr. Bingham Admit Provider Dr. Zachery Gomez MD Attending Provider Jason MOLINA, Dr. Bingham Other Provider Jason MOLINA, Dr. Bingham Other Provider Brendan MOLINA, Dr. Miller Other Provider Ajay MOLINA, Dr. Albert Other Provider Tip MOLINA, Dr. Ramirez Other Provider Magali MOLINA, Dr. Licea Other Provider Jay MOLINA, Dr. Tidwell Other Provider Yrn CRISTOBAL, Dr. Garcia Other Provider Js MOLINA, Dr. Oscar Soliz Other Provider Loly MOLINA, Dr. Liu Other Provider [phone] Israel MOLINA, Dr. Quinones Other Provider Gena MOLINA, Dr. Nieves Other Provider Dianna MOLINA, Dr. Moon Other Provider [phone] Tawanda MOLINA, Dr. Nunez Other Provider [phone] Juan Carlos MOLINA, Dr. Roberts Other Provider [phone] Abdullahi MOLINA, Dr. Mills Other Provider [phone] Rashad MOLINA, Dr. Germain Other [facility] Hilton MD, Dr. Ash Other Provider [phone] Lea MOLINA, Dr. Orozco Other Provider Francisco MOLINA, Dr. Berger Other Provider [phone] Flora MOLINA, Dr. Quintanilla Other Provider Noel CRISTOBAL, Dr. Oneil Other Provider [phone] Christin MOLINA, Dr. Mas Other Provider [phone] Estrella MOLINA, Dr. Polk Other Provider [phone] Mike Martinez DO Other Provider Evin MOLINA, Dr. Pinzon Other Provider Nishant MOLINA, Dr. Cruz Other Provider Brendan MOLINA, Dr. Herbert Avila Attending Provider Jason MOLINA, Dr. Bingham Attending Provider Dr. Leyda Carodna MD Attending Provider Haylie MOLINA, Dr. Mcdonald Attending Provider Yrn CRISTOBAL, Dr. Garcia Attending Provider Ofelia MOLINA, Dr. Cobos Attending Provider Brendan MOLINA, Dr. Herbert Avila Other Provider Caroline MCDONOUGHN.METALLURGIST HELPER, Rufina Unavailable CHEIKH GROUNDMAN/LINEMAN-METALLURGIST HELPER, BISHNU Attending Unavailab JAS Worley MD Attending Unavailable CHU MOLINA, EMERY Valdez Consulting Unavailjosé miguel PARRA MD, YOLANDA Admitting Unavailable FIDEL MOLINA, YOLANDA Attending Unavailable JAS RAMIREZ MD Attending Unavailable KEKE ZARCO MD, JANAE Attending Unavailable KEKE ZARCO MD, JANAE Attending Unavailable Unavailable Primary Care Provider Unavailabl e Zachery Gomez Admitting Unavailable Ana Laura Hastings Attending Unavailable Amado James Primary Care Unavailable Cortez Mantilla Referring Unavailable Leyda Erwin Consulting Unavailable Zachery Gomez Consulting Unavailable Eduardo Figueroa Consulting Unavailable Ana Laura Hastings Consulting Unavailable Mariza Rowley Attending Unavailable Juancarlos Ramirez Consulting Unavailable Mariza Rowley Consulting Unavailable Zachery Gomez Admitting Unavailable Leyda Cardona Consulting Unavailable Herbert Cardona Attending Unavailable Amado James Primary Care Unavailable Roosevelt Moss Consulting Unavailable James Whelan Consulting Unavailable Vinayak [place] Consulting Unavailable Yaw Thompson Consulting Unavailable Jose Pool Consulting Unavailable Oscar Weinstein Consulting Unavailable Noe Salcido Consulting Unavailable Joni Wood Consulting Unavailable Lizbeth Avery Consulting Unavailab Red Antony Consulting Unavailable Enrique Neff Consulting Unavailable Armando Rangel Consulting Unavailable Lina Fernando Consulting Unavailable AlJessa yanez Consulting Unavailable Hilton, Nilsa Consulting Unavailable Lea, Ernesto Consulting Unavailable Irukulla, Ab Consulting Unavailable Flora, Dwight Consulting Unavailable Dhesi, Thad Consulting Unavailable Tg Waller Consulting Unavailable Jam De La Rosa Consulting Unavailable Mike Martinez Consulting Unavailable Jeromy Cleary Consulting Unavailable Anthony Dillard Consulting Unavailable Jason, Zachery Consulting Unavailable Herbert Cardona Consulting Unavailable Harry Stallings Attending Unavailable Aleksandar Aj Attending Unavailable Elderbannerck, Amado Primary Care Unavailable Leyda Erwin Referring Unavailable Leyda Erwin Consulting Unavailable Elderpequannock, Amado Primary Care Unavailable Harry Stallings Attending Unavailable Eduardo Figueroa Attending Unavailable [facility], Amado Primary Care Unavailable Rupali Kirkpatrick Referring Unavailable Lea Loza Attending Unavailable Elderbrock, Amado Primary Care Unavailable Elderbrock, Amado Referring Unavailable Jason, Zachery Referring Unavailable Jose Pool Attending Unavailable Papito Gilbert Attending UnavailLeyda Forrest Consulting Unavailable Anjum Small Consulting Unavailabl e Herbam, Ana Laura Radha Consulting Unavailable Koram, Ana Laura Radha Referring Unavailable Herbert Cardona Referring Unavailable Tono, Tyson Attending Unavailable Janusz Reaves Attending Unavailable Elderbrock, Amado Referring Unavailable Elderbrock, Amado Primary Care Unavailable Carmela Funk NP Attending Unavailable Elderbrock, Amado Referring Unavailable Elderbrock, Amado Primary Care Unavailable Lea Loza Attending Unavailable Sharon Hastingsa Radha Attending Unavailable Jason, Zachery Attending Unavailable Leyda Cardona Attending Unavailable Sagar Rendon Attending Unavailable Sagar Rendon Consulting Unavailable Elderbannerck, Amado Primary Care Unavailable Miguel Naik Attending Unavailable Miguel Naik Referring Unavailable Jason, Zachery Attending Unavailable Jason, Zachery Referring Unavailable Leyda Cardona Attending Unavailable Elderbrock, Amado Primary Care Unavailable Leyda Brown Attending Unavailable Leyda Brown Referring Unavailable Oscar Poole Consulting Unavailable Oscar Poole Admitting Unavailable Elderbrock, Amado Primary Care Unavailable Rupali Kirkpatrick Attending Unavailable Rupali Kirkpatrick Consulting Unavailable HerbamSharona Radha Attending Unavailable Venkata, Ana Laura Radha Consulting Unavailable Oscar Poole Consulting Unavailable Oscar Poole Admitting Unavailable Koram, Ana Laura Radha Attending Unavailable Elderbrock, Amado Primary Care Unavailable Rupali Kirkpatrick Consulting Unavailable Jason, Zachery Admitting Unavailable Mariza Rowley Attending Unavailable Elderbrock, Amado Primary Care Unavailable Cortez Mantilla Referring Unavailable Leyda Erwin Consulting Unavailable Jason, Zachery Consulting Unavailable Eduardo Figueroa Consulting Unavailable Herbam, Ana Laura Radha Consulting Unavailable Juancarlos Ramirez Consulting Unavailable Leyda Erwin Referring Unavailable Leyda Erwin Attending Unavailable Elderbrock, Amado Primary Care Unavailable Leyda Erwin Attending Unavailable Elderbrock, Amado Primary Care Unavailable Leyda Erwin Referring Unavailable Leyda Erwin Attending Unavailable Leyda Erwin Referring Unavailable Elderbrock, Amado Primary Care Unavailable DemiterEveJanusz Attending Unavailable Demiter, Janusz Referring Unavailable Elderbrock, Amado Primary Care Unavailable Leyda Erwin Attending Unavailable Leyda Erwin Referring Unavailable Elderbrock, Amado Primary Care Unavailable Leyda Erwin Referring Unavailable Leyda rEwin Attending Unavailable Elderbrock, Amado Primary Care Unavailable Oscar Poole Attending Unavailable Aston Chua Attending Unavailable Tiffany David Attending Unavailable Elderbrock, Amado Primary Care Unavailable Elderbrock, Amado Primary Care Unavailable Miguel Naik Attending Unavailable Demiter, Janusz Referring Unavailable Demiter, Janusz Attending Unavailable Elderbrock, Amado Primary Care Unavailable Mukkmarvalla SILVER Mahaveer Referring Unavail able Mukkamalla SILVER Mahaveer Attending Unavail able Elderbrock, Amado Primary Care Unavailable Mukkamalla OLS, Mahaveer Attending Unavail able Elderbrock, Amado Primary Care Unavailable Jason, Zachery Admitting Unavailable Leyda Cardona Consulting Unavailable Herbam, Ana Laura Radha Attending Unavailable Elderbrock, Amado Primary Care Unavailable Ajay, Jayaprakas Consulting Unavailable James Whelan Consulting Unavailable Vinayak De [place] Consulting Unavailable Yaw Thompson Consulting Unavailable Jose Pool Consulting Unavailable Oscar Weinstein Consulting Unavailable Noe Salcido Consulting Unavailable Joni Wood Consulting Unavailable Lizbeth Avery Consulting Unavailab Red Antony Consulting Unavailable Enrique Neff Consulting Unavailable Armando Rangel Consulting Unavailable Lina Fernando Consulting Unavailable Jessa Solorzano Consulting Unavailable Nilsa Hilton Consulting Unavailable Lea, Ernesto Consulting Unavailable Ab Singh Consulting Unavailable Flora, Dwight Consulting Unavailable Thad Cohen Consulting Unavailable Tg Waller Consulting Unavailable Jam De La Rosa Consulting Unavailable Mike Martinez Consulting Unavailable Jeromy Cleary Consulting Unavailable Anthony Dillard Consulting Unavailable Zachery Gomez Consulting Unavailable Leyda Brown Consulting Unavailable Herbert Cardona Consulting Unavailable Anjum Small Consulting UnavailAna Laura Crystal Consulting Unavailable Sagar Rendon Consulting Unavailable Unavailable Primary Care Provider UnavailGERARDO Garcia Attending Unavailable SHARYN AMAYA Admitting Unavailable SHARYN AMAYA Attending Unavailable KISHORE WOLFF Consulting Unavailable DIANA ZABALA Consulting Unavailable GRIFFIN PETERS Admitting Unavailable SANTOS JACOBS Attending Unavailable LYNN POWELL Consulting Unavailable RE MACIEL Referring Unavailable NONE, PCP Referring Unavailable KLEVER RAND Attending Unavailable Allergies Allergy Classification Reported Allergen(s) Allergy Type Date of Onset Reaction(s) Facility (5 sources) Angiotensin-conv erting enzyme inhibitor agent; Translations: [DIANA INHIBITORS] Propensity to adverse reactions 07-17-2005 [facility] Work Phone: (20 sources) Neomycin; Translations: [NEOMYCIN] Drug Allergy 07-17-2005 [facility] Work Phone: (20 sources) Angiotensin-conv erting enzyme inhibitor agent Propensity to adverse reactions 07-17-2005 [facility] Work Phone: Medications Current Medications Medication Drug Class(es) Dates Sig (Normalized) Sig (Original) albuterol 0.83 mg/ml inhalation solution (6 sources) beta2-Adrenergic Agonist Start: 07-06-2025 End: 07-06-2026 albuterol (2.5 MG/3ML) 0.083% nebulizer solution Take 3 mL (2.5 mg) by nebulization three times daily. 07/06/2025 07/06/2026 Active Start: 07-06-2025 End: 07-06-2025 2.5 mg, Nebulization, 3 time s daily, First dose on Wed07/06/25 at 1130 Start: 06-06-2025 End: 06-21-2025 amLODIPine 5 mg oral tablet (20 sources) Dihydropyridine Calcium Channel Herb Start: 07-18-2024 End: 08-28-2024 take 1 tablet by mouth once daily amLODIPine (NORVASC) 5 mg tablet Take 1 tablet by mouth once daily. 90 tablet 3 08/28/2024 Active aspirin 81 mg delayed release oral tablet (20 sources) Platelet Aggregation Inhibitor, Nonsteroidal Anti-inflammatory Drug Start: 06-03-2022 take 1 tablet by mouth once daily Aspirin (Adult Aspirin Regimen) 81 mg tablet,delayed release (DR/EC) Active 81 mg PO DAILY June 03, 2022 12:00am Aspirin 81 mg Ta b Take 81 mg by mouth. Active Comment on above: Take 81 mg by mouth. betamethasone 0.5 mg/ml / clotrimazole 10 mg/ml topical cream (20 sources) Azole Antifungal, Corticosteroid Start: 024 clotrimazole-betame [...] Active Comment on above: Use as directed cephalexin 500 mg oral capsule (2 sources) Cephalosporin Antibacterial Start: End: take 1 capsule by mouth four times daily cephALEXin (KEFLEX) 500 mg capsule Indications: Other depression Take 1 capsule by mouth four times daily for 10 days. 40 capsule 0 04/10/2024 04/20/2024 Active cholecalciferol 0.025 mg oral capsule (20 sources) Vitamin D Start: 018 take 1 capsule by mouth once daily Cholecalciferol, Vitamin D3, 1,000 unit cap Take 1 capsule by mouth once daily. 90 capsule 3 04/04/2018 Active Comment on above: Take 1 capsule by mo [facility] once daily. dapagliflozin 10 mg oral tablet (20 sources) Sodium-Glucose Cotransporter 2 Inhibitor Start: End: take 1 tablet by mouth once daily at breakfast dapagliflozin propanediol (FARXIGA) 10 mg tablet Take 1 tablet by mouth daily with breakfast. 90 tablet 3 08/28/2024 Active Comment on above: Take 1 tablet by carlo daily with breakfast. ferrous sulfate 325 mg oral tablet (1 source) Start: take 1 tablet by mouth once daily ferrous sulfate 325 mg (65 mg iron) tablet Indications: Anemia, unspecified type Take 1 tablet by mouth once daily. 30 tablet 2 12/19/2024 Active furosemide 20 mg oral tablet (20 sources) Loop Diuretic Start: End: take 1 tablet by mouth two times weekly furosemide (Lasix) 20 MG tablet Take 1 tablet (20 mg) by mouth Twice a Week. Via PEG, given on wed/Wednesday for weight gain 8 tablet 11 06/21/2025 05/23/2026 Active Start: 01-30-2025 take 1 tablet by carlo th twice daily Furosemide 40 mg tablet Active 40 mg PO TWICE A DAY 60 January 30, 2025 9:47am Start: 08-22-2024 End: 01-30-2025 take 1 tablet by mouth once daily Furosemide 40 mg Tablet Discontinued 40 mg PO DAILY August 22, 2024 1:00am January 30, 2025 9:48am Start: 04-10-2024 End: 08-22-2024 take 2 tablets by mouth once daily furosemide (LASIX) 40 mg tablet Indications: Bilateral leg edema Take 2 tablets by mouth once daily. 180 tablet 3 04/10/2024 Active Start: 06-03-2022 End: 07-12-2024 take 1 tablet by mouth once daily Furosemide 40 mg tablet Discontinued 40 mg PO DAILY June 03, 2022 10:25am July 12, 2024 3:33pm Start: 02-26-2022 End: 06-03-2022 Furosemide 40 mg tablet Disc ontinued 40 mg PO TWICE A DAY 0 February 26, 2022 4:18pm June 03, 2022 10:31am Hold for SBP less than 100 mmHg Start: 11-13-2021 End: 02-26-2022 take 1 tablet by mouth once daily Furosemide 40 mg tablet Discontinued 40 mg PO DAILY February 22, 2022 12:00am February 26, 2022 4:18pm Comment on above: Take 1 tablet by carlo th once daily. 3 ml insulin detemir 100 unt/ml pen injector (20 sources) Insulin Analog Start: 07-12-2024 End: 08-22-2024 Insulin Detemir U-100 (Levemir Flextouch U100 Insulin) 100 unit/mL (3 mL) insulin pen Discontinued 50 U SC WITH BREAKFAST July 12, 2024 3:43pm August 22, 2024 12:33pm Start: 07-12-2024 End: 07-13-2024 inject 65 [IU] by subcutaneous injection once daily at breakfast insulin detemir U-100 (LEVEMIR) 100 unit/mL (3 mL) injection pen Inject 65 Units subcutaneously daily with breakfast. Pt states taking 65 units 30 mL 5 07/12/2024 07/13/2024 Discontinued Start: 04-20-2023 End: 07-12-2024 insulin detemir U-100 (LEVEM IR) 100 unit/mL (3 mL) injection pen Inject 70 Units subcutaneously daily with breakfast. Pt states taking 65 units 30 mL 5 07/11/2024 07/12/2024 Discontinued Start: 04-19-2023 End: 07-13-2024 inject 70 [IU] by subcutaneous injection once daily in the morning insulin detemir U-100 (LEVEMIR U-100 INSULIN) 100 unit/mL injection Indications: Type 2 diabetes mellitus with stage 3b chronic kidney disease, without long-term current use of insulin (HCC) Inject 70 Units subcutaneously every morning. 10 mL 5 01/13/2024 07/13/2024 Discontinued Start: 11-03-2022 inject 70 [IU] by dobbs [...] with long-term current use of insulin (HCC) Inject 70 Units subcutaneously daily with breakfast. 30 Each 5 07/13/2022 04/15/2023 Discontinued Start: 02-26-2022 End: 07-12-2024 Insulin Detemir U-100 (Levem ir Flextouch U100 Insulin) 100 unit/mL (3 mL) insulin pen Discontinued 70 U SC WITH BREAKFAST 0 February 26, 2022 4:18pm July 12, 2024 3:43pm Start: 02-26-2022 End: 09-26-2024 inject 30 [IU] by subcutaneous injection once daily in the morning insulin detemir U-100 (LEVEMIR) 100 unit/mL (3 mL) injection pen Inject 30 Units subcutaneously every morning. 09/26/2024 Active Start: 02-22-2022 End: 02-26-2022 Insulin Detemir U-100 (Levem ir Flextouch U-100 Insuln) 100 unit/mL (3 mL) insulin pen Discontinued 80 U SC WITH BREAKFAST February 22, 2022 12:00am February 26, 2022 4:18pm Start: 11-13-2021 inject 80 [IU] by dobbs bcutaneous injection once daily at breakfast insulin detemir U-100 (LEVEMIR) 100 unit/mL (3 mL) injection pen Indications: Controlled type 2 diabetes mellitus without complication, with long-term current use of insulin ([facility]) Inject 80 Units subcutaneously daily with breakfast. 30 Pen 5 11/13/2021 Active Comment on above: Inject 80 Units subc utaneously daily with breakfast. Inject 70 Units subc utaneously daily with breakfast. Inject 70 Units subc utaneously every morning. Insulin [place], Disposable, (RELION PEN NEEDLES) 32 x 5/32 " ndle (20 sources) Start: 5 Insulin [place], Disposable, (RELION PEN NEEDLES) 32 x 5/32 " ndle Use as directed with insulin pen. 250.00. 4 injections/day. On insulin. 150 Each 11 02/27/2015 Active Comment on above: Use as directed with insulin pen. 250.00. 4 injections/day. On insulin. loratadine 10 mg oral tablet (20 sources) Start: 8 take 1 tablet by mouth once daily loratadine (CLARITIN) 10 mg tablet Indications: Allergic rhinitis, unspecified seasonality, unspecified trigger Take 1 tablet by mouth once daily. 06/03/2018 Active Comment on above: Take 1 tablet by carlo th once daily. losartan potassium 50 mg oral tablet (20 sources) Angiotensin 2 Receptor Herb Start: End: 5 take 1 tablet by mouth once daily losartan (COZAAR) 50 mg tablet Take 1 tablet by mouth once daily. 90 tablet 1 11/08/2024 05/07/2025 Active Start: 08-19-2024 End: 08-22-2024 take 1 tablet by mouth once daily Losartan 100 mg tablet Discontinued 100 mg PO DAILY August 19, 2024 1:00am August 22, 2024 12:37pm metOLazone 5 mg oral tablet (20 sources) Thiazide-like Diuretic Start: 07-11-2024 End: 01-30-2025 take 1 tablet by mouth once daily metOLazone (ZAROXOLYN) 5 mg tablet Indications: Heart failure, unspecified HF chronicity, unspecified heart failure type (HCC) , Bilateral leg edema Take 1 tablet by mouth once daily. 30 tablet 5 07/11/2024 Active minocycline 100 mg oral capsule (4 sources) Tetracycline-class Drug Start: 06-13-2025 End: 06-22-2025 Vitamin B Complex (16 sources) take 100 mg by mouth once daily vitamin B complex (COMPLEX B-100 ORAL) Take 100 mg by mouth once daily. Active Vitamin B Complex (Complex B-100) tablet extended release (3 sources) Start: 08-19-2024 Vitamin B Complex (Complex B-100) tablet extended release Active 1 {tbl} PO DAILY August 19, 2024 1:00am vitamin b12 1 mg oral tablet (20 sources) Vitamin B12 Start: 10-10-2013 take 1 tablet by mouth once daily cyanocobalamin (VITAMIN B-12) 1,000 mcg tab Take 1 tablet by mouth once daily. 0 10/10/2013 Active Comment on above: Take 1 tablet by carlo once daily. Completed/Discontinued Medications Medication Drug Class(es) Dates Sig (Normalized) Sig (Original) Acetaminophen (16 sources) Start: 07-04-2025 End: 07-06-2025 take 1 tablet by mouth every six hours as needed for pain and fever acetaminophen (Tylenol) tablet 650 mg Start: 07-18-2024 End: 02-05-2025 Acetaminophen 325 mg Tablet Active 650 mg PO EVERY 6 HOURS as needed for Pain 1-10 Or Fever >100.7 February 05, 2025 12:00am Start: 02-26-2022 End: 06-03-2022 Acetaminophen (Tylenol) 325 mg Tablet Discontinued 650 mg PO EVERY 6 HOURS NEEDED as needed for Pain Score 1-10/Temp > 100.7 F 0 February 26, 2022 12:00am June 03, 2022 10:30am Start: 02-26-2022 End: 06-03-2022 take 2 tablets by mouth every six hours as needed Acetaminophen (Tylenol) 325 mg Tablet Discontinued 650 MG PO EVERY 6 HOURS NEEDED 0 February 26, 2022 12:00am June 03, 2022 10:30am 20 ml albumin human, snf 250 mg/ml injection (8 sources) Human Serum Albumin Start: 06-18-2025 End: 06-18-2025 Start: 06-04-2025 End: 06-04-2025 Start: 06-02-2025 End: 06-21-2025 Start: 06-01-2025 End: 06-02-2025 albuterol 0.833 mg/ml / ipratropium bromide 0.167 mg/ml inhalation solution (13 sources) Anticholinergic, beta2-Adrenergic Agonist Start: 06-06-2025 End: 06-21-2025 Start: 02-26-2022 End: 06-03-2022 take 1 mL by inhalation every four hours as needed for wheezing Ipratropium-Albuterol 0.5 mg-3 mg(2.5 mg base)/3 mL Solution For Nebulization Discontinued 3 mL INHALATION EVERY 4 HOURS as needed for SOB &/OR WHEEZING 0 February 26, 2022 12:00am June 03, 2022 10:29am Start: 02-26-2022 End: 06-03-2022 take 1 mL by inhalation every four hours Ipratropium-Albuterol Discontinued 3 ML INHALATION EVERY 4 HOURS 0 February 26, 2022 12:00am June 03, 2022 10:29am amoxicillin 875 mg / clavulanate 125 mg oral tablet (4 sources) Penicillin-class Antibacterial Start: 07-18-2024 End: 07-26-2024 Amoxicillin-Pot Clavulanate 875-125 mg tablet Discontinued 1 {tbl} PO TWICE A DAY July 18, 2024 12:00am July 25, 2024 12:00am July 26, 2024 12:08am Start: 05-06-2024 End: 05-16-2024 take 1 tablet by mouth twice daily amoxicillin-clavulanate potassium (AUGMENTIN) 875-125 mg per tablet Indications: Diabetic ulcer of right midfoot associated with type 2 diabetes mellitus, unspecified ulcer stage (HCC) Take 1 tablet by mouth two times a day for 10 days. 20 tablet 0 05/06/2024 05/16/2024 Active Jkddw-Vndy-Hlunk-Collag-Mv-M in (Champ (With Collagen)) 7-7-1.5 gram Powder In Packet (3 sources) Start: 07-18-2024 End: 08-19-2024 Husbl-Qeqz-Ljamh-Collag-Mv-M in (Champ (With Collagen)) 7-7-1.5 gram Powder In Packet Discontinued 1 NMA PO TWICE DAILY WITH MEALS 0 July 18, 2024 12:00am August 20, 2024 12:19am atorvastatin 40 mg oral tabl et (20 sources) HMG-CoA Reductase Inhibitor Start: 06-11-2021 End: 06-21-2026 40 mg, Per G Tube, Nightly, First dose on Wed07/04/25 at 2100 Comment on above: Take 1 tablet by carlo th daily at bedtime. For cholesterol. busPIRone hydrochloride 10 m g oral tablet (18 sources) Start: 07-04-2025 End: 07-06-2025 5 mg, Per G Tube, 3 times daily, First dose on Wed07/04/25 at 2100 Start: 06-21-2025 End: 06-21-2026 busPIRone (Buspar) 5 MG tabl et 1 tablet (5 mg) by Per G Tube route 3 times daily. 90 tablet 11 06/21/2025 06/21/2026 Active Start: 06-02-2025 End: 06-21-2026 Start: 06-01-2025 End: 06-02-2025 End: 06-21-2025 carvedilol 6.25 mg oral tablet (20 sources) alpha-Adrenergic Herb, beta-Adrenergic Herb Start: 07-04-2025 End: 07-06-2025 3.125 mg, Per G Tube, 2 times daily with meals, First dose on Wed07/04/25 at 1850 Start: 06-21-2025 End: 06-21-2026 carvedilol (Coreg) 3.125 MG tablet 1 tablet (3.125 mg) by Per G Tube route 2 times daily (with meals). 60 tablet 06/21/2025 06/21/2026 Active Start: 06-03-2025 End: 06-21-2026 Start: 07-12-2024 End: 08-22-2024 take 1 tablet by mouth twice daily at mealtime Carvedilol 25 mg tablet Discontinued 25 mg PO TWICE A DAY 180 July 12, 2024 3:44pm August 22, 2024 12:37pm must administer with a meal/food Start: 11-13-2021 End: 06-21-2025 Comment on above: Take 1 tablet by carlo twice daily. ceFAZolin (Ancef) 1,000 mg in sodium chloride 0.9 % 50 mL IVPB (2 sources) Start: 07-04-2025 End: 07-04-2025 1,000 mg, IntraVENous, at 100 mL/hr, Administer over 30 Minutes, Once, On Wed07/04/25 at 1400, For 1 dose, Preprocedure, Prior to procedure Mini-Bag Plus bag, Suspected Indication (Select all that apply): Surgical Prophylaxis cholecalciferol 9.52 unt/ml / glucose 357 mg/ml oral gel (4 sources) Vitamin D Start: 07-04-2025 End: 07-06-2025 15 g, Oral, As needed, low blood sugar, Starting on Wed07/04/25 at 1900, If blood glucose less than 50 mg/dL and patient ALERT and NOT NPO, give 2 tubes glucose gel. If blood glucose less than 70 mg/dL and patient ALERT and NOT NPO, give 1 tube glucose gel. Repeat blood glucose in 15 minutes. If blood glucose is less than 70 mg/dL, repeat treatment and recheck blood glucose in 15 minutes x2 and notify provider. Start: 06-01-2025 End: 06-21-2025 ciprofloxacin 500 mg oral tablet (3 sources) Quinolone Antimicrobial Start: 07-13-2024 End: 07-18-2024 take 1 tablet by mouth twice daily Ciprofloxacin Hcl 500 mg tablet Discontinued 500 mg PO TWICE A DAY July 13, 2024 12:00am July 18, 2024 12:58pm TAKE ONE TABLET BY MOUTH TWICE DAILY FOR 14 DAYS START DATE: END DATE: clopidogrel 75 mg oral tablet (20 sources) [id number] Platelet Inhibitor Start: 11-13-2021 End: 07-11-2024 take 1 tablet by mouth once daily Clopidogrel 75 mg tablet Discontinued 75 mg PO DAILY February 22, 2022 12:00am June 03, 2022 10:48am Comment on above: Take 1 tablet by [facility] once daily. docusate sodium 50 mg / sennosides, snf 8.6 mg oral tablet (3 sources) Start: 07-18-2024 End: 08-19-2024 Sennosides-Docusate Sodium (Stimulant Laxative Plus) 8.6-50 mg Tablet Discontinued 2 {tbl} PO TWICE A DAY 0 July 18, 2024 12:00am August 20, 2024 12:20am doxycycline hyclate 100 mg oral tablet (6 sources) Tetracycline-class Drug Start: 07-13-2024 End: 08-19-2024 take 1 tablet by mouth twice daily Doxycycline Hyclate 100 mg tablet Discontinued 100 mg PO TWICE A DAY 1 July 18, 2024 1:00pm August 20, 2024 12:14am Drug or medicament (substance) (4 sources) Start: 06-04-2025 End: 06-21-2025 Start: 06-04-2025 End: 06-21-2025 EPINEPHrine 0.01 mg/ml / lidocaine hydrochloride 10 mg/ml injectable solution (2 sources) Antiarrhythmic, alpha-Adrenergic Agonist, beta-Adrenergic Agonist, Catecholamine, Amide Local Anesthetic Start: 06-14-2025 End: 06-14-2025 1 ml epoetin [id number] 3000 unt/ml injection (4 sources) Erythropoiesis-stimulatin g Agent Start: 07-06-2025 End: 07-06-2025 2,600 Units, IntraVENous, 3 times weekly (Once per day on Wednesday), First dose on Wed07/06/25 at 0900, Indications: ESRD on Dialysis Start: 06-13-2025 End: 06-21-2025 fidaxomicin 200 mg oral tablet (2 sources) Macrolide Antibacterial Start: 06-03-2025 End: 06-12-2025 FLUoxetine 20 mg oral capsule (20 sources) Serotonin Reuptake Inhibitor Start: 06-21-2025 End: 06-21-2026 20 mg, Per G Tube, Daily, First dose on Wed07/05/25 at 0900 Start: 06-02-2025 End: 06-21-2026 Start: 04-10-[address] [facility] once daily FLUoxetine (PROZAC) 10 mg capsule Indications: Other depression Take 1 capsule by mouth once daily. 30 capsule 04/10/2024 Active End: 06-21-2025 glucagon (rdna) 1 mg injection (13 sources) Antihypoglycemic Agent Start: 07-04-2025 End: 07-06-2025 1 mg, IntraMUSCular, PRN, low blood sugar, Blood glucose less than 70 mg/dL and patient NOT ALERT or NPO and does not have IV access., Starting on Wed07/04/25 at 1900, After administration, attempt intravenous access and start D5W at 100 mL/hr. Repeat blood glucose in 15 minutes x2 and notify provider. Start: 06-01-2025 End: 06-21-2025 Start: 02-26-2022 End: 06-03-2022 inject 1 mg by intramuscular injection once as needed Glucagon (Glucagen Diagnostic Kit) 1 mg/mL Recon Soln Discontinued 1 mg IM ONE TIME as needed for Hypoglycemia February 26, 2022 12:00am June 03, 2022 10:29am Start: 02-26-2022 End: 06-03-2022 inject 1 mg by intramuscular injection once Glucagon (Glucagen Diagnostic Kit) 1 mg/mL Recon Soln Discontinued 1 MG IM ONE TIME February 26, 2022 12:00am June 03, 2022 10:29am 50 ml glucose 50 mg/ml injection (8 sources) Start: 07-04-2025 End: 07-06-2025 100 mL/hr, IntraVENous, PRN, Blood sugar less than 70mg/dL, Starting on Wed07/04/25 at 1900, Start infusion following administration of dextrose 50% or glucagon. Start: 07-04-2025 End: 07-06-2025 12.5 g, IntraVENous, PRN, lo w blood sugar, Blood glucose less than 70 mg/dL and patient NOT ALERT or NPO., Starting on Wed07/04/25 at 1900, If patient does not respond within 5 minutes, repeat dose x1. Start D5W at 100 mL/hour until ordering provider can be reached. Repeat blood glucose in 15 minutes. If blood glucose is less than 70 mg/dL, repeat treatment and recheck blood glucose in 15 minutes x2. If using Glucostabilizer, dose as instructed per system. Start: 06-01-2025 End: 06-21-2025 Start: 06-01-2025 End: 06-21-2025 250 ml glucose 50 mg/ml / sodium chloride 4.5 mg/ml injection (2 sources) Start: 06-01-2025 End: 06-21-2025 1 ml heparin sodium, porcine 1000 unt/ml injection (20 sources) Unfractionated Heparin, Anti-coagulant Start: 07-06-2025 End: 07-06-2025 2,100 Units, IntraCATHeter, As needed, line care, Starting on Wed07/06/25 at 0936, For VENOUS lumen Start: 07-05-2025 End: 07-06-2025 2,000 Units, IntraCATHeter, As needed, line care, Starting on Dalila 07/05/25 at 0328, For VENOUS lumen Start: 06-01-2025 End: 06-21-2025 Start: 06-01-2025 End: 06-21-2025 Start: 07-18-2024 End: 08-19-2024 Heparin (Porcine) 5,000 unit /mL Solution Discontinued 5000 U SC EVERY 8 HOURS 0 July 18, 2024 12:00am August 20, 2024 12:18am 1 ml HYDROmorphone hydrochloride 1 mg/ml cartridge (2 sources) Opioid Agonist Start: 06-15-2025 End: 06-21-2025 take 0.25 mg intravenously every four hours as needed for pain sodium hypochlorite 2.5 mg/ml topical solution (3 sources) Start: 07-18-2024 End: 08-19-2024 Sodium Hypochlorite (Hysept) 0.25 % Solution Discontinued 0 mL TOPICAL DAILY 0 July 18, 2024 12:00am August 20, 2024 12:20am Please contact the information source for Protocol details. insulin glargine 100 unt/ml injectable solution (20 sources) Insulin Analog Start: 07-04-2025 End: 07-06-2025 inject 25 [IU] by subcutaneous injection twice daily 25 Units, SubCUTAneous, 2 times daily, First dose on Wed07/04/25 at 2100, Do not hold without physician order. Start: 06-01-2025 End: 06-21-2025 Start: 07-13-2024 End: 09-26-2024 insulin glargine (LANTUS SUNDEEP OSTAR U-100 INSULIN) 100 unit/mL (3 mL) Indications: Type 2 diabetes mellitus with chronic kidney disease, with long-term current use of insulin, unspecified CKD stage ([facility]) Inject 60 Units subcutaneously once daily. 30 mL 5 07/13/2024 09/26/2024 Discontinued (Course of therapy completed) insulin lispro 100 unt/ml in jectable solution (20 sources) Insulin Analog Start: 06-02-2025 End: 06-21-2025 Start: 09-26-2024 insulin lispro (HUMALOG KWIKPEN INSULIN) 100 unit/mL Indications: Type 2 diabetes mellitus with stage 3b chronic kidney disease, without long-term current use of insulin ([facility]) , Controlled type 2 diabetes mellitus without complication, with long-term current use of insulin ([facility]) INJECT 15 UNITS SUBCUTANEOUSLY THREE TIMES DAILY WITH MEALS DIRECTED 30 Each 3 09/26/2024 Active Start: 07-13-2024 Insulin Lispro (Humalog Kwikpen Insulin) 100 unit/mL Insulin Pen Active 15 U SC BEFORE MEALS AND AT BEDTIME July 13, 2024 12:00am Please contact the information source for Protocol details. Start: 07-13-2024 Insulin Lispro (Humalog Kwikpen Insulin) 100 unit/mL Insulin Pen Active 25 U SC BEFORE MEALS AND AT BEDTIME July 13, 2024 12:00am Please contact the information source for Protocol details. Start: 02-26-2022 End: 06-03-2022 Insulin Lispro 100 unit/mL i nsulin pen Discontinued 20 U SC 3 TIMES DAILY WITH MEALS 0 February 26, 2022 4:18pm June 03, 2022 10:28am Hold if glucose less than 130 mg/dl Start: 02-26-2022 End: 07-13-2024 Insulin Lispro (Humalog Kwik pen Insulin) 100 unit/mL Insulin Pen Discontinued 0 U SC BEFORE MEALS AND AT BEDTIME 0 February 26, 2022 12:00am July 13, 2024 3:53pm Please contact the information source for Protocol details. Start: 02-26-2022 End: 09-26-2024 insulin lispro (HUMALOG KWIK PEN INSULIN) 100 unit/mL Indications: Type 2 diabetes mellitus with stage 3b chronic kidney disease, without long-term current use of insulin ([facility]) , Controlled type 2 diabetes mellitus without complication, with long-term current use of insulin ([facility]) INJECT 25 UNITS SUBCUTANEOUSLY THREE TIMES DAILY WITH MEALS DIRECTED 30 Each 3 06/06/2024 09/26/2024 Discontinued Start: 02-26-2022 End: 07-15-2022 insulin lispro (HUMALOG KWIK PEN INSULIN) 100 unit/mL Indications: Controlled type 2 diabetes mellitus without complication, with long-term current use of insulin ([facility]) INJECT 20 UNITS SUBCUTANEOUSLY THREE TIMES DAILY WITH MEALS DIRECTED 30 Each 3 07/15/2022 Active Start: 02-22-2022 End: 02-26-2022 Insulin Lispro 100 unit/mL i nsulin pen Discontinued 30 U SC 3 TIMES DAILY WITH MEALS February 22, 2022 12:00am February 26, 2022 4:18pm Start: 05-29-2021 Insulin Lispro (Humalog Kwikpen Insulin) 100 unit/mL Insulin Pen Active 0 UNIT SC BEFORE MEALS AND AT BEDTIME 0 February 26, 2022 12:00am Insulin Lispro ( Humalog) 100 UNIT/ML solution injection Inject 2-12 Units under the skin 3 times daily (with meals). Sliding scale: 150-200 = 2 units, 102-250 = 4 units, 251-300 = 6 units, 301-350 = 8 units, 351-400 = 10 units, 401-450 = 12 units Active Comment on above: INJECT 30 UNITS SUBC UTANEOUSLY THREE TIMES DAILY WITH MEALS DIRECTED INJECT 20 UNITS SUBC UTANEOUSLY THREE TIMES DAILY WITH MEALS DIRECTED INJECT 25 UNITS SUBC UTANEOUSLY THREE TIMES DAILY WITH MEALS DIRECTED Insulin Lispro (Humalog) injection 0-12 Units (2 sources) Start: 07-04-2025 End: 07-06-2025 Insulin Lispro (Humalog) injection 0-12 Units 10 ml lidocaine hydrochloride 20 mg/ml injection (6 sources) Antiarrhythmic, Amide Local Anesthetic Start: 06-14-2025 End: 06-14-2025 Start: 06-12-2025 End: 06-12-2025 Start: 06-07-2025 End: 06-07-2025 LORazepam 0.5 mg oral tablet (4 sources) Benzodiazepine Start: 06-14-2025 End: 06-21-2025 Start: 06-12-2025 End: 06-12-2025 melatonin 3 mg oral tablet (2 sources) Start: 06-14-2025 End: 06-21-2025 Menthol / Zinc Oxide (3 sources) Start: 07-18-2024 End: 08-19-2024 Menthol-Zinc Oxide (Calmoseptine) 0.44-20.6 % Ointment Discontinued 1 NMA TOPICAL TWICE A DAY 0 July 18, 2024 12:00am August 20, 2024 12:19am Please contact the information source for Protocol details. miconazole nitrate 0.02 mg/mg topical powder (10 sources) Azole Antifungal Start: 06-04-2025 End: 07-13-2025 apply 1 dose topically twice daily Topical, 2 times daily, First dose on Dalila 07/05/25 at 0015 midodrine hydrochloride 5 mg oral tablet (18 sources) alpha-Adrenergic Agonist Start: 07-04-2025 End: 07-06-2025 10 mg, Per G Tube, 3 times daily, First dose on Wed07/04/25 at 2100 Start: 06-21-2025 End: 07-21-2025 midodrine (Proamatine) 10 MG tablet 1 tablet (10 mg) by Per G Tube route 3 times daily. 90 tablet 06/21/2025 07/21/2025 Active Start: 06-21-2025 End: 07-21-2025 Start: 06-01-2025 End: 06-21-2025 End: 06-21-2025 1 ml morphine sulfate 4 mg/ml cartridge (2 sources) Opioid Agonist Start: 06-06-2025 End: 06-15-2025 take 1 mg intravenously every four hours as needed mupirocin 0.02 mg/mg topical ointment (2 sources) RNA Synthetase Inhibitor Antibacterial Start: 07-05-2025 End: 07-06-2025 apply 1 dose topically three times daily Topical, 3 times daily, First dose on Wed07/05/25 at 0930 nystatin 100 unt/mg topical powder (3 sources) Polyene Antifungal Start: 07-18-2024 End: 08-19-2024 Nystatin (Nyamyc) 100,000 unit/gram Powder Discontinued 1 NMA TOPICAL TWICE A DAY 0 July 18, 2024 12:00am August 20, 2024 12:20am Please contact the information source for Protocol details. ondansetron ODT (Zofran-ODT) disintegrating tablet 4 mg (2 sources) Start: 07-04-2025 End: 07-06-2025 take 1 tablet by mouth every eight hours as needed for nausea and vomiting ondansetron ODT (Zofran-ODT) disintegrating tablet 4 mg pantoprazole 40 mg delayed release oral tablet (20 sources) Proton Pump Inhibitor Start: 04-07-2022 End: 04-10-2024 take 1 tablet by mouth once daily pantoprazole DR (PROTONIX) 40 mg tablet Take 1 tablet by mouth once daily. 90 tablet 3 04/07/2022 04/10/2024 Discontinued Start: 02-26-2022 End: 06-17-2023 take 1 tablet by mouth twice daily in the morning, then take 1 tablet by mouth once daily Pantoprazole 40 mg tablet,delayed release (DR/EC) Discontinued 40 mg PO EVERY MORNING June 03, 2022 10:28am June 17, 2023 3:29pm 40 mg twice daily for 8 weeks then changed to 40 mg once daily. End: 06-21-2025 Comment on above: Take 1 tablet by carlo once daily. Take 40 mg by mouth twice daily. polyethylene glycol [id number] mg powder for oral solution (4 sources) Osmotic Laxative Start: 07-04-2025 End: 07-06-2025 take 17 g by mouth every twenty-four hours as needed for constipation Start: 06-01-2025 End: 06-21-2025 take 17 g by mouth every twenty-four jayce rs as needed for constipation potassium chloride 20 meq po wder for oral solution (6 sources) Start: 06-15-2025 End: 06-15-2025 Start: 06-15-2025 End: 06-15-2025 Start: 06-04-2025 End: 06-04-2025 Start: 06-02-2025 End: 06-02-2025 5 ml sodium chloride 9 mg/ml injection (20 sources) Start: 07-04-2025 End: 07-06-2025 take 5-40 mL intravenously every twelve hours 5-40 mL, IntraVENous, Every 12 hours, First dose on Wed07/04/25 at 2100, For Line Patency: Peripheral IV = 5 mL; Midline or Central Line = 10 mL/lumen. If following IV push medication, administer flush at same rate as the IV push. Flush volume is determined by type of infusion therapy being given. For non-viscous solutions use: Peripheral IV = 5 mL Midline or Central Line = 10 mL/lumen For viscous solutions (i.e. blood components, parenteral nutrition, contrast media, or after obtaining blood sample) use: Peripheral IV = 10 mL Midline or Central Line = 20 mL/lumen Start: 07-04-2025 End: 07-06-2025 Start: 07-04-2025 End: 07-06-2025 Start: 07-04-2025 End: 07-05-2025 take 50 mL intravenously every hour 50 mL/hr, IntraVENous, Continuous, Starting on Wed07/04/25 at 1400, Preprocedure Start: 06-14-2025 End: 06-21-2025 take 10 mL intraluminal route every twelve hours Start: 06-06-2025 End: 06-21-2025 Start: 06-01-2025 End: 06-21-2025 spironolactone 25 mg oral tablet (20 sources) Aldosterone Antagonist Start: 05-29-2021 End: 06-17-2023 take 1 tablet by mouth once daily Spironolactone 25 mg tablet Discontinued 25 mg PO DAILY February 22, 2022 12:00am June 17, 2023 3:29pm Comment on above: Take 1 tablet by carlo once daily. valsartan 160 mg oral tablet (20 sources) Angiotensin 2 Receptor Herb Start: 11-13-2021 End: 09-26-2024 take 1 tablet by mouth once daily Valsartan 160 mg tablet Discontinued 160 mg PO DAILY February 22, 2022 12:00am August 20, 2024 12:20am Comment on above: Take 1 tablet by car[facility] once daily. (2 sources) End: 06-21-2025 (4 sources) Start: 06-15-2025 End: 06-21-2025 Start: 06-09-2025 End: 06-12-2025 (2 sources) Start: 06-10-2025 End: 06-11-2025 (8 sources) Start: 06-07-2025 End: 06-21-2025 take 1000 mg intravenously every twelve hours Start: 06-02-2025 End: 06-21-2025 Start: 06-01-2025 End: 06-21-2025 take 12.5 mg by mouth every six hours as needed for nausea and vomiting [Order 1 Start] Name: promethazine (Phenergan) tablet 12.5 mg Signed Summary: 12.5 mg, Oral, Every 6 hours PRN, nausea, vomiting, Starting on Wed06/01/25 at 1530 [Order 1 End] [Order 2 Start] Name: promethazine (Phenergan) injection 12.5 mg Signed Summary: 12.5 mg, IntraMUSCular, Every 6 hours PRN, nausea, vomiting, Starting on Wed06/01/25 at 1530, Only to be given as IM injection. [Order 2 End] [Order 3 Start] Name: promethazine (Phenergan) suppository 12.5 mg Signed Summary: 12.5 mg, Rectal, Every 6 hours PRN, nausea, vomiting, Starting on Wed06/01/25 at 1530 [Order 3 End] Start: 06-01-2025 End: 06-21-2025 take 650 mg by mouth every six hours as needed for pain and fever [Order 1 Start] Name: acetaminophen (Tylenol) tablet 650 mg Signed Summary: 650 mg, Oral, Every 6 hours PRN, mild pain (1-3), fever, For temp greater than 100.4 F (38 C), Starting on Wed06/01/25 at 1530, Maximum dose of acetaminophen is 4000 mg from all sources in 24 hours. [Order 1 End] [Order 2 Start] Name: acetaminophen (Tylenol) suppository 650 mg Signed Summary: 650 mg, Rectal, Every 6 hours PRN, fever, For temp greater than 100.4 F (38 C), Starting on Wed06/01/25 at 1530, Administer if oral route cannot be used. Maximum dose of acetaminophen is 4000 mg from all sources in 24 hours. [Order 2 End] Problems Active Problems Problem Classification Problem Date Documented Da te Episodic/Chronic Acute cerebrovascular disease (1 source) Cerebral infarction; Translations: [Cerebral infarction, unspecified] Chronic Anxiety disorders (12 sources) Mixed anxiety and depressive disorder; Translations: [Anxiety disorder, unspecified] Onset: 5 06-15-2025 Chronic Chronic kidney disease (20 sources) Chronic kidney disease stage 3B ; Translations: [Stage 3b chronic kidney disease] Onset: 2 Resolved: 4 09-30-2021 Chronic Chronic ulcer of skin (20 sources) Non-pressure chronic ulcer of other 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; Translations: [Non-pressure chronic ulcer of other 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] Onset: 4 08-31-2024 Chronic Complication of device; implant or graft (14 sources) Complication of dialysis; Translations: [Unspecified complication of cardiac and vascular prosthetic device, implant and graft, initial encounter] Onset: 5 07-02-2025 Episodic Congestive heart failure; nonhypertensive (20 sources) Acute exacerbation of chronic congestive heart failure; Translations: [Heart failure, unspecified] Onset: 3 Chronic Comment on above: Systolic, ejection f raction 50% Coronary atherosclerosis and other heart disease (20 sources) Coronary atherosclerosis; Translations: [Atherosclerotic heart disease of [place] coronary artery without angina pectoris] Onset: 4 Chronic Comment on above: Transferred to [facility] 09/2013 for intervention Deficiency and other anemia (15 sources) Anemia co-occurrent and due to chronic kidney disease stage 3; Translations: [Anemia due to stage 3b chronic kidney disease] Onset: 2 09-30-2021 Chronic Deficiency and other anemia (20 sources) Anemia; Translations: [Anemia, unspecified] Onset: 2 Episodic Deficiency and other anemia (6 sources) Anemia, unspecified; Translations: [Anemia, unspecified] Onset: 4 Episodic Deficiency and other anemia (5 sources) Chronic anemia; Translations: [Anemia, unspecified] 08-25-2024 Episodic Diabetes mellitus with complications (20 sources) Type 2 diabetes mellitus in obese; Translations: [Type 2 diabetes mellitus with other specified complication] Onset: 6 03-06-2022 Chronic Diabetes mellitus without complication (18 sources) Type 2 diabetes mellitus without complication; Translations: [Type 2 diabetes mellitus without complications] Onset: 5 Chronic Diabetes mellitus without complication (1 source) Diabetes mellitus without complication; Translations: [Type 2 diabetes mellitus with stage 3b chronic kidney disease, without long-term current use of insulin (HCC)] Onset: 4 Disorders of lipid metabolism (20 sources) Hyperlipidemia; Translations: [Hyperlipidemia, unspecified] Onset: 5 08-07-2015 Chronic Essential hypertension (20 sources) Hypertensive disorder; Translations: [Essential (primary) hypertension] Onset: 5 07-17-2005 Chronic Gastrointestinal hemorrhage (4 sources) Gastrointestinal hemorrhage; Translations: [Gastrointestinal hemorrhage, unspecified] Episodic Hypertension with complications and secondary hypertension (20 sources) Hypertensive heart failure; Translations: [Hypertensive heart and chronic kidney disease with heart failure and stage 1 through stage 4 chronic kidney disease, or unspecified chronic kidney disease] Onset: 3 10-15-2023 Chronic Malaise and fatigue (20 sources) Asthenia; Translations: [Other malaise] Onset: 5 06-01-2024 Episodic Menopausal disorders (1 source) Postmenopausal bleeding; Translations: [Postmenopausal bleeding] Onset: Chronic Mood disorders (2 sources) Depressive disorder; Translations: [Other specified depressive episodes] 04-10-2024 Chronic Nonmalignant breast conditions (20 sources) Fibrocystic disease of breast; Translations: [Diffuse cystic mastopathy of unspecified breast] Onset: 5 07-17-2005 Chronic Nutritional deficiencies (13 sources) Malnutrition (calorie); Translations: [Moderate protein-calorie malnutrition] Onset: 5 06-02-2025 Chronic Osteoarthritis (20 sources) Osteoarthritis; Translations: [Unspecified osteoarthritis, unspecified site] Onset: 5 07-17-2005 Chronic Other aftercare (1 source) Post-discharge follow-up; Translations: [Encounter for follow-up examination after completed treatment for conditions other than malignant neoplasm] 08-25-2024 Episodic Other circulatory disease (10 sources) History of cerebrovascular accident; Translations: [Personal history of transient ischemic attack (TIA), and cerebral infarction without residual deficits] 05-21-2022 Episodic Comment on above: Chronic microvascula r disease involving the cerebral hemispheres andbrainstem as described above. In addition, there is evidence of superimposedacute lacunar-type infarction involving the left brock radiata region as well. MRI 09/29/2013 Other endocrine disorders (1 source) Hypoglycemia, unspecified; Translations: [Hypoglycemia, unspecified] Onset: Chronic Other gastrointestinal disorders (3 sources) History of gastrointestinal bleed; Translations: [Personal history of other diseases of the digestive system] Episodic Other injuries and conditions due to external causes (3 sources) Hypothermia; Translations: [Hypothermia, initial encounter] 08-30-2024 Episodic Other lower respiratory disease (5 sources) Dyspnea; Translations: [Shortness of breath] Episodic Other lower respiratory disease (8 sources) Dyspnea on exertion; Translations: [Other forms of dyspnea] 06-17-2023 Episodic Other lower respiratory disease (3 sources) Hypoxia; Translations: [Hypoxemia] 08-30-2024 Episodic Other lower respiratory disease (1 source) Shortness of breath; Translations: [Shortness of breath] Onset: Episodic Other nervous system disorders (3 sources) Hypoglycemic encephalopathy; Translations: [Metabolic encephalopathy] 08-30-2024 Chronic Other nervous system disorders (12 sources) Metabolic encephalopathy; Translations: [Metabolic encephalopathy] Onset: 5 06-15-2025 Chronic Other nervous system disorders (1 source) Metabolic encephalopathy; Translations: [Metabolic encephalopathy] Onset: 4 Chronic Other nutritional; endocrine; and metabolic disorders (20 sources) Body mass index 40+ - severely obese; Translations: [Morbid (severe) obesity due to excess calories] Onset: 8 05-27-2021 Chronic Other nutritional; endocrine; and metabolic disorders (13 sources) Obesity; Translations: [Obesity, unspecified] 05-21-2022 Chronic Other nutritional; endocrine; and metabolic disorders (1 source) Morbid (severe) obesity due to excess calories; Translations: [Morbid (severe) obesity due to excess calories] Onset: 4 Chronic Other nutritional; endocrine; and metabolic disorders (1 source) Body mass index (BMI) 40.0-44.9, adult; Translations: [Body mass index [BMI] 40.0-44.9, adult] Onset: 4 Chronic Other nutritional; endocrine; and metabolic disorders (3 sources) H/O: diabetes mellitus; Translations: [Personal history of other endocrine, nutritional and metabolic disease] 08-30-2024 Episodic Other screening for suspected conditions (not mental disorders or infectious disease) (1 source) Abnormal findings on diagnostic imaging of other specified body structures; Translations: [Abnormal findings on diagnostic imaging of other specified body structures] Onset: 5 Chronic Other skin disorders (1 source) Skin lesion; Translations: [Disorder of the skin and subcutaneous tissue, unspecified] 04-15-2023 Episodic Other upper respiratory disease (20 sources) Allergic rhinitis; Translations: [Allergic rhinitis, unspecified] Onset: 5 06-03-2018 Chronic Jaleesa-; endo-; and myocarditis; cardiomyopathy (except that caused by tuberculosis or sexually transmitted disease) (3 sources) Cardiomyopathy; Translations: [Cardiomyopathy, unspecified] 08-30-2024 Chronic Peripheral and visceral atherosclerosis (10 sources) Peripheral vascular disease, unspecified; Translations: [Peripheral arterial disease] Onset: 4 07-18-2024 Chronic Pleurisy; pneumothorax; pulmonary collapse (3 sources) Pleural effusion, not elsewhere classified; Translations: [Pleural effusion, not elsewhere classified] Onset: 5 Episodic Pulmonary heart disease (12 sources) Pulmonary arterial hypertension; Translations: [Secondary pulmonary arterial hypertension] Onset: 5 05-21-2022 Chronic Residual codes; unclassified (6 sources) Bilateral lower limb edema; Translations: [Localized edema] Episodic Residual codes; unclassified (3 sources) Disturbance of consciousness; Translations: [Transient alteration of awareness] 08-30-2024 Episodic Residual codes; unclassified (1 source) Other specified postprocedural states; Translations: [Other specified postprocedural states] Onset: 5 Episodic Respiratory failure; insufficiency; arrest (adult) (1 source) Chronic respiratory failure, unspecified whether with hypoxia or hypercapnia; Translations: [Chronic respiratory failure, unspecified whether with hypoxia or hypercapnia] Onset: Chronic Unclassified (1 source) R93.1 - Abnormal findings on diagnostic imaging of heart and coronary circulation Past or Other Problems Problem Classification Problem Date Documented Date Episodic/Chronic Acute and unspecified renal failure (17 sources) Injury of kidney; Translations: [Acute kidney failure, unspecified] Onset: 03-21-2025 Episodic Coronary atherosclerosis and other heart disease (5 sources) Presence of coronary angioplasty implant and graft; Translations: [Percutaneous transluminal coronary angioplasty status] Onset: 09-27-2013 Episodic Other aftercare (20 sources) Long-term current use of insulin; 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] Onset: 10-15-2023 10-15-2023 Episodic Other aftercare (1 source) 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; Translations: [Type 2 diabetes mellitus with chronic kidney disease, with long-term current use of insulin, unspecified CKD stage (HCC)] Onset: 10-15-2023 Episodic Other aftercare (1 source) Encounter for follow-up examination after completed treatment for conditions other than malignant neoplasm; Translations: [Hospital discharge follow-up] Onset: 08-28-2024 Episodic Other circulatory disease (20 sources) History of cerebrovascular disease; Translations: [Personal history of transient ischemic attack (TIA), and cerebral infarction without residual deficits] Onset: 11-15-2013 08-21-2020 Episodic Other injuries and conditions due to external causes (1 source) Hypothermia, initial encounter; Translations: [Hypothermia, initial encounter] Onset: 08-22-2024 Episodic Other lower respiratory disease (4 sources) Other forms of dyspnea; Translations: [Other respiratory abnormalities] Onset: 01-29-2025 06-17-2023 Episodic Other lower respiratory disease (1 source) Dyspnea, unspecified; Translations: [Dyspnea, unspecified] Onset: 11-17-2024 Episodic Other nutritional; endocrine; and metabolic disorders (1 source) Personal history of other endocrine, nutritional and metabolic disease; Translations: [Personal history of other endocrine, nutritional and metabolic disease] Onset: 08-22-2024 Episodic Other screening for suspected conditions (not mental disorders or infectious disease) (20 sources) D-dimer above reference range; Translations: [Other specified abnormal findings of blood chemistry] Onset: 03-21-2025 Episodic Residual codes; unclassified (1 source) Localized edema; Translations: [Bilateral leg edema] Onset: 08-31-2024 Episodic Respiratory failure; insufficiency; arrest (adult) (5 sources) Acute hypoxemic and hypercapnic respiratory failure; Translations: [Acute respiratory failure with hypoxia] Onset: 03-21-2025 02-08-2025 Episodic Skin and subcutaneous tissue infections (14 sources) Cellulitis of skin; Translations: [Cellulitis, unspecified] Onset: 08-02-2024 04-10-2024 Episodic Unclassified (2 sources) Pressure injury of sacral region, stage 3 (HCC) 06-21-2025 Urinary tract infections (4 sources) Urinary tract infectious disease; Translations: [Urinary tract infection, site not specified] Onset: 03-21-2025 02-05-2025 Episodic Results Test Name Value Interpretation Reference Range Facility [id number] 07-06-2025 [id number] Normal [facility] [id number] Normal [facility] CBC (HEMOGRAM)on 07-06-2025 Erythrocyte distribution width (RBC) [Ratio] 19.4 % High 11.5-15.0 [facility] Comment on above: Performed By: #### L [id number] ####Graphic Coordinator: VASHTI BAILEY ([id number])[facility] ([address] Hematocrit (Bld) [Volume fraction] 24.3 % Low 35.0-47.0 [facility] Comment on above: Performed By: #### L [id number] ####Graphic Coordinator: VASHTI BAILEY ([phone])[facility])[address] [place] [address] Hemoglobin (Bld) [Mass/Vol] 7.7 g/dL Low 11.7-16.0 [facility] Comment on above: Performed By: #### L [id number] ####Graphic Coordinator: VASHTI BAILEY ([id number])[facility])[address] [place] [address] MCH (RBC) [Entitic mass] 27.5 pg Normal 26.0-34.0 [facility] Comment on above: Performed By: #### L [id number] ####Graphic Coordinator: VASHTI BAILEY ([id number])[facility])[address] [place] [address] MCHC 31.7 % Normal 30.5-36.0 [facility] Comment on above: Performed By: #### L [id number] ####Graphic Coordinator: VASHTI BAILEY ([id number])[facility] ([facility])[address] [place] [address] MCV (RBC) [Entitic vol] 86.8 fL Normal 77.0-99.0 [facility] Comment on above: Performed By: #### L [id number] ####Graphic Coordinator: VASHTI BAILEY ([id number])[facility])[address] [place] [address] Platelet mean volume (Bld) [Entitic vol] 10.0 fL Normal 9.0-12.7 [facility] Comment on above: Performed By: #### L [id number] ####Graphic Coordinator: VASHTI BAILEY ([id number])[facility])[address] [place] [address] Platelets (Bld) [#/Vol] 190 10*3/uL Normal 140-440 [facility] Comment on above: Performed By: #### L [id number] ####Graphic Coordinator: VASHTI BAILYE ([id number])[address] RBC (Bld) [#/Vol] 2.80 10*6/uL Low 3.80-5.20 [facility] Comment on above: Performed By: #### L [id number] ####Graphic Coordinator: VASHTI BAILEY ([id number])[facility])[address] [place] [address] WBC (Bld) [#/Vol] 7.8 10*3/uL Normal 3.6-10.7 [facility] Comment on above: Performed By: #### L [id number] ####Graphic Coordinator: VASHTI BAILEY ([id number])[address] CBC panel Auto (Bld)on 07-06 Erythrocyte distribution width (RBC) [Ratio] 19.4 % High 11.5 - 15.0 % [facility] Hematocrit (Bld) [Volume fraction] 24.3 % Low 35.0 - 47.0 % [facility] Hemoglobin (Bld) [Mass/Vol] 7.7 g/dL Low 11.7 - 16.0 g/dL [facility] Interpretation and review of laboratory results Abnormal [facility] MCH (RBC) [Entitic mass] 27.5 pg 26.0 - 34.0 pg [facility] MCHC (RBC) [Mass/Vol] 31.7 % 30.5 - 36.0 % [facility] MCV (RBC) [Entitic vol] 86.8 fL 77.0 - 99.0 fL [facility] Platelet mean volume (Bld) [Entitic vol] 10 fL 9.0 - 12.7 fL [facility] Platelets (Bld) [#/Vol] 190 10*3/uL 140 - 440 10*3/uL [facility] RBC (Bld) [#/Vol] 2.8 10*6/uL Low 3.80 - 5.2 0 10*6/uL [facility] WBC (Bld) [#/Vol] 7.8 10*3/uL 3.6 - 10.7 10*3/uL [facility] - Chemistry and C hemistry - challengeOrdered By: Holly Brown on 07-06-2025 Albumin [Mass/Vol] 2.6 g/dL Low 3.4 - 4.8 g/dL [facility] Anion gap [Moles/Vol] 10 mmol/L 3 - 13 mmol/L [facility] Calcium [Mass/Vol] 9.3 mg/dL 8.8 - 10. 0 mg/dL [facility] Chloride [Moles/Vol] 99 mmol/L 98 - 10 7 mmol/L [facility] CO2 [Moles/Vol] 27 mmol/L 23 - 31 mmol/L [facility] Creatinine [Mass/Vol] 3.36 mg/dL High 0.57 - 1.11 mg/dL [facility] GFR/1.73 sq M.predicted (S/P/Bld) [Vol rate/Area] 13.6 mL/min Low - PINF [facility] Comment on above: Calculation based on the Chronic Kidney Disease Epidemiology Collaboration (CKD-EPI) equation refit without adjustment for race Glucose [Mass/Vol] 89 mg/dL 82 - 115 mg/dL [facility] Phosphate [Mass/Vol] 3.3 mg/dL 2.3 - 4 .7 mg/dL [facility] Potassium [Moles/Vol] 4 mmol/L 3.5 - 5.1 mmol/L [facility] Comment on above: Plasma potassium andrae ues may be up to 0.5 mmol/L lower than serum values. Sodium [Moles/Vol] 136 mmol/L 136 - 145 mmol/L [facility] Urea nitrogen [Mass/Vol] 64 mg/dL High 9 - 23 mg/dL [facility] No Panel InformationOrdered By: Holly Brown on 07-06-2025 Interpretation and review of laboratory results Abnormal [facility] Nursing Noteon 07-06-2025 Nursing Note Normal [facility] Nursing Note Pt is confused at baseline , pt is from a SNF pt has son who cares for her as well. Normal [facility] Nursing Note Normal [facility] Progress Noteon 07-06-2025 Progress Note Normal [facility] Progress Note Normal [facility] RENAL FUNCTION PANELon 07-06 Albumin [Mass/Vol] 2.6 g/dL Low 3.4-4.8 [facility] Comment on above: Performed By: #### L [id number] ####Graphic Coordinator: VASHTI BAILEY ([phone])[facility] ([facility])[address] [place] [address] Anion gap [Moles/Vol] 10 mmol/L Normal 3-13 [facility] Comment on above: Performed By: #### L [id number] ####Graphic Coordinator: VASHTI BAILEY ([phone])[facility] ([facility])[address] [place] [address] Calcium [Mass/Vol] 9.3 mg/dL Normal 8.8-10.0 [facility] Comment on above: Performed By: #### L [id number] ####Graphic Coordinator: VASHTI BAILEY ([id number])[facility] ([facility])[address] [place] [address] Chloride [Moles/Vol] 99 mmol/L Normal 98-107 [facility] Comment on above: Performed By: #### L [id number] ####Graphic Coordinator: VASHTI BAILEY ([id number])[facility] ([facility])[address] [place] [address] CO2 [Moles/Vol] 27 mmol/L Normal 23-31 [facility] Comment on above: Performed By: #### L [id number] ####Graphic Coordinator: VASHTI BAILEY ([phone])[facility])[address] [place] [address] Creatinine [Mass/Vol] 3.36 mg/dL High 0.57-1.11 [facility] Comment on above: Performed By: #### L [id number] ####Graphic Coordinator: VASHTI BAILEY ([id number])[facility])[address] [place] [address] GLOMERULAR FILTRATION RATE ML/MIN/1.73 SQ M.PREDICTED 13.6 mL/min/1.73m*2 Low >60.0 [facility] Comment on above: Result Comment: Calc ulation based on the Chronic Kidney Disease Epidemiology Collaboration (CKD-EPI) equation refit without adjustment for race Performed By: #### L [id number] ####Graphic Coordinator: VASHTI BAILEY ([id number])[facility])[address] [place] [address] Glucose [Mass/Vol] 89 mg/dL Normal 82-115 [facility] Comment on above: Performed By: #### L [id number] ####Graphic Coordinator: VASHTI BAILEY ([phone])[facility] ([facility])[address] [place] [address] [place] Phosphate [Mass/Vol] 3.3 mg/dL Normal 2.3-4.7 [facility] Comment on above: Performed By: #### L [id number] ####Graphic Coordinator: VASHTI BAILEY ([id number])[facility])[address] [place] [address] Potassium [Moles/Vol] 4.0 mmol/L Normal 3.5-5.1 [facility] Comment on above: Result Comment: [facility] potassium values may be up to 0.5 mmol/L lower than serum values. Performed By: #### L [id number] ####Graphic Coordinator: VASHTI BAILEY ([id number])[facility] ([facility])[address] [place] [address] [place] Sodium [Moles/Vol] 136 mmol/L Normal 136-145 [facility] Comment on above: Performed By: #### L [id number] ####Graphic Coordinator: VASHTI BAILEY ([id number])[facility])[address] [place] [address] [place] Urea nitrogen [Mass/Vol] 64 mg/dL High 9-23 [facility] Comment on above: Performed By: #### L [id number] ####Graphic Coordinator: VASHTI BAILEY ([phone])[facility])[address] [place] [address] [place] XR CHEST 1 VIEWon 07-06-2025 XR CHEST 1 VIEW Normal [facility] XR Chest Single viewon 07-06 Moderate-sized bilateral pleural effusions. Right-sided pleural effusion is increased in size compared to 07/03/2025. Report Dictated on Electronically Signed By: Juancarlos Oneal MD Electronically Signed Date/Time: 07/06/2025 2:50 PM EDT [facility] Patient Name: ROSA MYERS : 1950 Exam Date/Time: 07/06/2025 12:30 Procedure: XR CHEST 1 VIEW Ordering Provider: JACOBS JOSHUA Reason For Exam: Shortness of breath CLINICAL INDICATION: Shortness of breath COMPARISON: 07/03/2025 TECHNIQUE: Single portable AP radiograph of the chest. FINDINGS: LUNGS/PLEURA:There are moderate sized bilateral pleural effusions. Right-sided pleural effusion shows interval increase in size compared to 07/03/2025. Trachea is midline. No pneumothorax. MEDIASTINUM:Heart size and mediastinal contours are normal. VASCULARITY: Normal BONES:Unremarkable SUPPORT LINES: Tracheostomy tube, right tunneled dialysis catheter in unchanged position. OTHER: [facility] Lillian Oneal MD - 07/06/2025 Patient Name: ROSA MYERS : 1950 Exam Date/Time: 07/06/2025 12:30 Procedure: XR CHEST 1 VIEW Ordering Provider: JACOBS JOSHUA Reason For Exam: Shortness of breath CLINICAL INDICATION: Shortness of breath COMPARISON: 07/03/2025 TECHNIQUE: Single portable AP radiograph of the chest. FINDINGS: LUNGS/PLEURA:There are moderate sized bilateral pleural effusions. Right-sided pleural effusion shows interval increase in size compared to 07/03/2025. Trachea is midline. No pneumothorax. MEDIASTINUM:Heart size and mediastinal contours are normal. VASCULARITY: Normal BONES:Unremarkable SUPPORT LINES: Tracheostomy tube, right tunneled dialysis catheter in unchanged position. OTHER: IMPRESSION: Moderate-sized bilateral pleural effusions. Right-sided pleural effusion is increased in size compared to 07/03/2025. Report Dictated on Electronically Signed By: Juancarlos Oneal MD Electronically Signed Date/Time: 07/06/2025 2:50 PM EDT [facility] Radiology Study observation (narrative) [facility] XR Chest Single viewOrdered By: Lillian Oneal on 07-06-2025 [facility] Work Phone: [phone] 07-05-2025 [id number] Normal [facility] [id number] Normal [facility] C. DIFFICILE BY PCR WITH REF ALYSSA TO EIAon 07-05-2025 C. DIFFICILE BY PCR WITH REFLEX TO EIA Normal [facility] Comment on above: Performed By: #### L [id number], [id number] ####Graphic Coordinator: VASHTI BAILEY ([id number])[facility] ([address] C. difficile toxin A+B tcdA+ tcdB genes PATEL+probe Ql (Stl)Ordered By: Nithya Carrasquillo on 07-05-2025 C difficile Toxins A+B, EIA Negative Negative [facility] Interpretation and review of laboratory results Normal [facility] Results indicate colonization with C. Difficile. Correlate with clinical data and/or consider other causes for symptoms. Methodology: Enzyme Immunoassay [facility] C. difficile toxin genes PATEL +probe Ql (Stl)on 07-05-2025 C. difficile toxin B tcdB gene PATEL+probe Ql (Stl) Detected Abnormal Not Detected [facility] Interpretation and review of laboratory results Abnormal [facility] This test screens fo r possible C. difficile infection. Additional testing is required and has been ordered by Laboratory. See C. difficile Toxins EIA for final results. Additional charges apply. Methodology: Real-time PCR [facility] CBC W Auto Differential pane l (Bld)on 07-05-2025 Basophils (Bld) [#/Vol] 0.1 10*3/uL 0.0 - 0.2 10*3/uL [facility] Basophils/100 WBC (Bld) 0.7 % 0.0 - 2.0 % [facility] Eosinophils (Bld) [#/Vol] 0.2 10*3/uL 0.0 - 0.5 10*3/uL [facility] Eosinophils/100 WBC (Bld) 3.1 % 0.0 - 6.0 % [facility] Erythrocyte distribution width (RBC) [Ratio] 19.6 % High 11.5 - 15.0 % [facility] Hematocrit (Bld) [Volume fraction] 23.4 % Low 35.0 - 47.0 % [facility] Hemoglobin (Bld) [Mass/Vol] 7.4 g/dL Low 11.7 - 16.0 g/dL [facility] Immature granulocytes (Bld) [#/Vol] 0.1 10*3/uL High NINF - 0.1 10*3/uL [facility] Immature granulocytes/100 WBC (Bld) 0.7 % 0.0 - 2.0 % [facility] Interpretation and review of laboratory results Abnormal [facility] Lymphocytes (Bld) [#/Vol] 0.9 10*3/uL Low 1.0 - 4.3 10*3/uL [facility] Lymphocytes/100 WBC (Bld) 13.7 % Low 15.0 - 45.0 % [facility] MCH (RBC) [Entitic mass] 27.1 pg 26.0 - 34.0 pg [facility] MCHC (RBC) [Mass/Vol] 31.6 % 30.5 - 36.0 % [facility] MCV (RBC) [Entitic vol] 85.7 fL 77.0 - 99.0 fL [facility] Monocytes (Bld) [#/Vol] 0.8 10*3/uL 0.0 - 0.9 10*3/uL [facility] Monocytes/100 WBC (Bld) 11.9 % 5.0 - 13.0 % [facility] Neutrophils (Bld) [#/Vol] 4.7 10*3/uL 1.8 - 7.5 10*3/uL [facility] Neutrophils/100 WBC (Bld) 69.9 % 38.0 - 82.0 % [facility] Nucleated RBC/100 WBC (Bld) [Ratio] 0 % [facility] Platelet mean volume (Bld) [Entitic vol] 10.3 fL 9.0 - 12.7 fL [facility] Platelets (Bld) [#/Vol] 179 10*3/uL 140 - 440 10*3/uL [facility] RBC (Bld) [#/Vol] 2.73 10*6/uL Low 3.80 - 5.2 0 10*6/uL [facility] WBC (Bld) [#/Vol] 6.8 10*3/uL 3.6 - 10.7 10*3/uL [facility] CBC WITH AUTO DIFFERENTIALon 07-05-2025 Basophils (Bld) [#/Vol] 0.1 10*3/uL Normal 0.0-0.2 [facility] Comment on above: Performed By: #### L [id number] ####Graphic Coordinator: VASHTI BAILEY ([id number])[facility] ([facility])[address] [place] [address] Basophils/100 WBC (Bld) 0.7 % Normal 0.0-2.0 [facility] Comment on above: Performed By: #### L [id number] ####Graphic Coordinator: VASHTI BAILEY ([id number])[facility])[address] [place] [address] Eosinophils (Bld) [#/Vol] 0.2 10*3/uL Normal 0.0-0.5 [facility] Comment on above: Performed By: #### L [id number] ####Graphic Coordinator: VASHTI BAILEY ([id number])[facility])[address] [place] [address] Eosinophils/100 WBC (Bld) 3.1 % Normal 0.0-6.0 [facility] Comment on above: Performed By: #### L [id number] ####Graphic Coordinator: VASHTI BAILEY ([id number])[facility])[address] [place] [address] Erythrocyte distribution width (RBC) [Ratio] 19.6 % High 11.5-15.0 [facility] Comment on above: Performed By: #### L [id number] ####Graphic Coordinator: VASHTI BAILEY ([id number])[facility])[address] [place] [address] Hematocrit (Bld) [Volume fraction] 23.4 % Low 35.0-47.0 [facility] Comment on above: Performed By: #### L [id number] ####Graphic Coordinator: VASHTI BAILEY ([id number])[facility])[address] [place] [address] Hemoglobin (Bld) [Mass/Vol] 7.4 g/dL Low 11.7-16.0 [facility] Comment on above: Performed By: #### L [id number] ####Graphic Coordinator: VASHTI BAILEY ([id number])[facility])[address] [place] [address] IMMATURE GRANS % 0.7 % Normal 0.0-2.0 [facility] Comment on above: Performed By: #### L [id number] ####Graphic Coordinator: VASHTI BAILEY ([id number])[address] IMMATURE GRANS ABSOLUTE 0.1 10*3/uL High <0.1 [facility] Comment on above: Performed By: #### L [id number] ####Graphic Coordinator: VASHTI BAILEY ([id number])[facility])[address] [place] [address] Lymphocytes (Bld) [#/Vol] 0.9 10*3/uL Low 1.0-4.3 [facility] Comment on above: Performed By: #### L [id number] ####Graphic Coordinator: VASHTI BAILEY ([id number])[facility])[address] [place] [address] Lymphocytes/100 WBC (Bld) 13.7 % Low 15.0-45.0 [facility] Comment on above: Performed By: #### L [id number] ####Graphic Coordinator: VASHTI BAILEY ([id number])[facility])[address] [place] [address] MCH (RBC) [Entitic mass] 27.1 pg Normal 26.0-34.0 [facility] Comment on above: Performed By: #### L [id number] ####Graphic Coordinator: VASHTI BAILEY ([phone])[facility])[address] [place] [address] MCHC 31.6 % Normal 30.5-36.0 [facility] Comment on above: Performed By: #### L [id number] ####Graphic Coordinator: VASHTI BAILEY ([id number])[facility])[address] [place] [address] MCV (RBC) [Entitic vol] 85.7 fL Normal 77.0-99.0 [facility] Comment on above: Performed By: #### L [id number] ####Graphic Coordinator: VASHTI BAILEY ([id number])[facility])[address] [place] [address] Monocytes (Bld) [#/Vol] 0.8 10*3/uL Normal 0.0-0.9 [facility] Comment on above: Performed By: #### L [id number] ####Graphic Coordinator: VASHTI BAILEY ([id number])[facility] ([facility])[address] [place] [address] Monocytes/100 WBC (Bld) 11.9 % Normal 5.0-13.0 [facility] Comment on above: Performed By: #### L [id number] ####Graphic Coordinator: VASHTI BAILEY ([id number])[facility])[address] [place] [address] NEUTROPHILS ABSOLUTE 4.7 10*3/uL Normal 1.8-7.5 [facility] Comment on above: Performed By: #### L [id number] ####Graphic Coordinator: VASHTI BAILEY ([id number])[facility])[address] [place] [address] Neutrophils/100 WBC (Bld) 69.9 % Normal 38.0-82.0 [facility] Comment on above: Performed By: #### L [id number] ####Graphic Coordinator: VASHTI BAILEY ([id number])[facility])[address] [place] [address] NRBC 0.0 /100 WBCs Normal 0.0-2.0 [facility] Comment on above: Performed By: #### L [id number] ####Graphic Coordinator: VASHTI BAILEY ([id number])[facility])[address] [place] [address] Platelet mean volume (Bld) [Entitic vol] 10.3 fL Normal 9.0-12.7 [facility] Comment on above: Performed By: #### L [id number] ####Graphic Coordinator: VASHTI BAILEY ([phone])[facility] ([facility])[address] [place] [address] Platelets (Bld) [#/Vol] 179 10*3/uL Normal 140-440 [facility] Comment on above: Performed By: #### L [id number] ####Graphic Coordinator: VASHTI BAILEY ([phone])[facility])[address] [place] [address] RBC (Bld) [#/Vol] 2.73 10*6/uL Low 3.80-5.20 [facility] Comment on above: Performed By: #### L [id number] ####Graphic Coordinator: VASHTI BAILEY ([id number])[facility])[address] [place] [address] WBC (Bld) [#/Vol] 6.8 10*3/uL Normal 3.6-10.7 [facility] Comment on above: Performed By: #### L [id number] ####Graphic Coordinator: VASHTI BAILEY ([phone])[facility])[address] [place] [address] COMPREHENSIVE METABOLIC PANE Florentin 07-05-2025 Albumin [Mass/Vol] 2.5 g/dL Low 3.4-4.8 [facility] Comment on above: Performed By: #### L [id number] ####Graphic Coordinator: VASHTI BAILEY ([phone])[facility])[address] [place] [address] ALP [Catalytic activity/Vol] 121 U/L Normal 40-150 [facility] Comment on above: Performed By: #### L [id number] ####Graphic Coordinator: VASHTI BAILEY ([id number])[facility] ([facility])[address] [place] [address] ALT [Catalytic activity/Vol] 21 U/L Normal <30 [facility] Comment on above: Performed By: #### L [id number] ####Graphic Coordinator: VASHTI BAILEY ([phone])[facility] ([facility])[address] [place] [address] Anion gap [Moles/Vol] 11 mmol/L Normal 3-13 [facility] Comment on above: Performed By: #### L [id number] ####Graphic Coordinator: VASHTI BAILEY ([phone])[facility] ([facility])[address] [place] [address] AST [Catalytic activity/Vol] 32 U/L Normal <34 [facility] Comment on above: Performed By: #### L [id number] ####Graphic Coordinator: VASHTI BAILEY ([id number])[facility])[address] [place] [address] Bilirubin [Mass/Vol] 0.6 mg/dL Normal <1.2 [facility] Comment on above: Performed By: #### L [id number] ####Graphic Coordinator: VASHTI BAILEY ([id number])[facility])[address] [place] [address] Calcium [Mass/Vol] 9.7 mg/dL Normal 8.8-10.0 [facility] Comment on above: Performed By: #### L [id number] ####Graphic Coordinator: VASHTI BAILEY ([id number])[facility])[address] [place] [address] [place] Chloride [Moles/Vol] 92 mmol/L Low 98-107 [facility] Comment on above: Performed By: #### L [id number] ####Graphic Coordinator: VASHTI BAILEY ([phone])[facility])[address] [place] [address] [place] CO2 [Moles/Vol] 29 mmol/L Normal 23-31 [facility] Comment on above: Performed By: #### L [id number] ####Graphic Coordinator: VASHTI BAILEY ([id number])[facility])[address] [place] [address] Creatinine [Mass/Vol] 5.26 mg/dL High 0.57-1.11 [facility] Comment on above: Performed By: #### L [id number] ####Graphic Coordinator: VASHTI BAILEY ([phone])[facility])[address] [place] [address] GLOMERULAR FILTRATION RATE ML/MIN/1.73 SQ M.PREDICTED 7.9 mL/min/1.73m*2 Low >60.0 [facility] Comment on above: Result Comment: Calc ulation based on the Chronic Kidney Disease Epidemiology Collaboration (CKD-EPI) equation refit without adjustment for race Performed By: #### L [id number] ####Graphic Coordinator: VASHTI BAILEY ([phone])[facility])[address] [place] [address] Glucose [Mass/Vol] 97 mg/dL Normal 82-115 [facility] Comment on above: Performed By: #### L [id number] ####Graphic Coordinator: VASHTI BAILEY ([phone])[address] Potassium [Moles/Vol] 4.2 mmol/L Normal 3.5-5.1 [facility] Comment on above: Result Comment: [facility] potassium values may be up to 0.5 mmol/L lower than serum values. Performed By: #### L [id number] ####Graphic Coordinator: VASHTI BAILEY ([id number])[facility])[address] [place] [address] Protein [Mass/Vol] 6.5 g/dL Normal 6.4-8.3 [facility] Comment on above: Performed By: #### L [id number] ####Graphic Coordinator: VASHTI BAILEY ([id number])[facility])[address] [place] [address] [place] Sodium [Moles/Vol] 132 mmol/L Low 136-145 [facility] Comment on above: Performed By: #### L [id number] ####Graphic Coordinator: VASHTI BAILEY ([id number])[facility] [place] [address] Urea nitrogen [Mass/Vol] 125 mg/dL High 9-23 [facility] Comment on above: Performed By: #### L [id number] ####Graphic Coordinator: VASHTI BAILEY ([id number])[facility] ([facility])[address] [place] [address] Comprehensive metabolic 1998 panelon 07-05-2025 Albumin [Mass/Vol] 2.5 g/dL Low 3.4 - 4.8 g/dL [facility] ALP [Catalytic activity/Vol] 121 U/L 40 - 150 U/L [facility] ALT [Catalytic activity/Vol] 21 U/L NINF - 30 U/L [facility] Anion gap [Moles/Vol] 11 mmol/L 3 - 13 mmol/L [facility] AST [Catalytic activity/Vol] 32 U/L NINF - 34 U/L [facility] Bilirubin [Mass/Vol] 0.6 mg/dL NINF - 1.2 mg/dL [facility] Calcium [Mass/Vol] 9.7 mg/dL 8.8 - 10. 0 mg/dL [facility] Chloride [Moles/Vol] 92 mmol/L Low 98 - 10 7 mmol/L [facility] CO2 [Moles/Vol] 29 mmol/L 23 - 31 mmol/L [facility] Creatinine [Mass/Vol] 5.26 mg/dL High 0.57 - 1.11 mg/dL [facility] GFR/1.73 sq M.predicted (S/P/Bld) [Vol rate/Area] 7.9 mL/min Low - PINF [facility] Comment on above: Calculation based on the Chronic Kidney Disease Epidemiology Collaboration (CKD-EPI) equation refit without adjustment for race Glucose [Mass/Vol] 97 mg/dL 82 - 115 mg/dL [facility] Interpretation and review of laboratory results Abnormal [facility] Potassium [Moles/Vol] 4.2 mmol/L 3.5 - 5.1 mmol/L [facility] Comment on above: Plasma potassium andrae ues may be up to 0.5 mmol/L lower than serum values. Protein [Mass/Vol] 6.5 g/dL 6.4 - 8.3 g/dL [facility] Sodium [Moles/Vol] 132 mmol/L Low 136 - 145 mmol/L [facility] Urea nitrogen [Mass/Vol] 125 mg/dL High 9 - 23 mg/dL [facility] Consulton 07-05-2025 Consult Normal [facility] Consult Normal [facility] LAB ONLY - C DIFF EIAon LAB ONLY - C DIFF EIA Normal [facility] Comment on above: Performed By: #### L [id number], [id number] ####Graphic Coordinator: VASHTI BAILEY ([id number])[facility] ([facility])[address] [place] [address] Laboratory - Chemistry and C hemistry - challengeon 07-05-2025 Glucose [Mass/Vol] 140 mg/dL High 70 - 100 mg/dL [facility] Glucose [Mass/Vol] 182 mg/dL High 70 - 100 mg/dL [facility] Glucose [Mass/Vol] 131 mg/dL High 70 - 100 mg/dL [facility] Glucose [Mass/Vol] 91 mg/dL 70 - 100 mg/dL [facility] No Panel Informationon 07-05 Interpretation and review of laboratory results Abnormal [facility] Performed by: [place] [address] CLIA ID: [id number] [facility] Interpretation and review of laboratory results Abnormal [facility] Performed by: [place] [address] CLIA ID: [id number] [facility] Interpretation and review of laboratory results Abnormal [facility] Performed by: [place] [address] CLIA ID: [id number] [facility] Interpretation and review of laboratory results Normal [facility] Performed by: [place] [address] CLIA ID: [id number] [facility] Nursing Noteon 07-05-2025 Nursing Note Patient bleeding fro m old IV site. Changed patient's gown, linens. Also rolled new pull pad under patient. No kinks in FMS. Normal [facility] Nursing Note Normal [facility] Nursing Note Normal [facility] Progress Noteon 07-05-2025 Progress Note Normal [facility] Progress Note Normal [facility] CBC W Auto Differential pane l (Bld)on 07-04-2025 Basophils (Bld) [#/Vol] 0.1 10*3/uL 0.0 - 0.2 10*3/uL [facility] Basophils/100 WBC (Bld) 0.7 % 0.0 - 2.0 % [facility] Eosinophils (Bld) [#/Vol] 0.2 10*3/uL 0.0 - 0.5 10*3/uL [facility] Eosinophils/100 WBC (Bld) 2.4 % 0.0 - 6.0 % [facility] Erythrocyte distribution width (RBC) [Ratio] 19.6 % High 11.5 - 15.0 % [facility] Hematocrit (Bld) [Volume fraction] 24.7 % Low 35.0 - 47.0 % [facility] Hemoglobin (Bld) [Mass/Vol] 7.9 g/dL Low 11.7 - 16.0 g/dL [facility] Immature granulocytes (Bld) [#/Vol] 0 10*3/uL NINF - 0.1 10*3/uL [facility] Immature granulocytes/100 WBC (Bld) 0.5 % 0.0 - 2.0 % [facility] Interpretation and review of laboratory results Abnormal [facility] Lymphocytes (Bld) [#/Vol] 0.9 10*3/uL Low 1.0 - 4.3 10*3/uL [facility] Lymphocytes/100 WBC (Bld) 12.5 % Low 15.0 - 45.0 % [facility] MCH (RBC) [Entitic mass] 27.1 pg 26.0 - 34.0 pg [facility] MCHC (RBC) [Mass/Vol] 32 % 30.5 - 36.0 % [facility] MCV (RBC) [Entitic vol] 84.6 fL 77.0 - 99.0 fL [facility] Monocytes (Bld) [#/Vol] 0.8 10*3/uL 0.0 - 0.9 10*3/uL [facility] Monocytes/100 WBC (Bld) 10.3 % 5.0 - 13.0 % [facility] Neutrophils (Bld) [#/Vol] 5.4 10*3/uL 1.8 - 7.5 10*3/uL [facility] Neutrophils/100 WBC (Bld) 73.6 % 38.0 - 82.0 % [facility] Nucleated RBC/100 WBC (Bld) [Ratio] 0 % [facility] Platelet mean volume (Bld) [Entitic vol] 10 fL 9.0 - 12.7 fL [facility] Platelets (Bld) [#/Vol] 171 10*3/uL 140 - 440 10*3/uL [facility] RBC (Bld) [#/Vol] 2.92 10*6/uL Low 3.80 - 5.2 0 10*6/uL [facility] WBC (Bld) [#/Vol] 7.4 10*3/uL 3.6 - 10.7 10*3/uL [facility] CBC WITH AUTO DIFFERENTIALon 07-04-2025 Basophils (Bld) [#/Vol] 0.1 10*3/uL Normal 0.0-0.2 [facility] Comment on above: Performed By: #### L [id number] ####Graphic Coordinator: VASHTI BAILEY ([id number])[facility])[address] [place] [address] Basophils/100 WBC (Bld) 0.7 % Normal 0.0-2.0 S [facility] Comment on above: Performed By: #### L [id number] ####Graphic Coordinator: VASHTI BAILEY ([id number])[facility] ([facility])[address] [place] [address] [place] Eosinophils (Bld) [#/Vol] 0.2 10*3/uL Normal 0.0-0.5 [facility] Comment on above: Performed By: #### L [id number] ####Graphic Coordinator: VASHTI BAILEY ([phone])[facility] ([facility])[address] [place] [address] [place] Eosinophils/100 WBC (Bld) 2.4 % Normal 0.0-6.0 [facility] Comment on above: Performed By: #### L [id number] ####Graphic Coordinator: VASHTI BAILEY ([id number])[address] Erythrocyte distribution width (RBC) [Ratio] 19.6 % High 11.5-15.0 [facility] Comment on above: Performed By: #### L [id number] ####Graphic Coordinator: VASHTI BAILEY ([id number])[facility])[address] [place] [address] Hematocrit (Bld) [Volume fraction] 24.7 % Low 35.0-47.0 [facility] Comment on above: Performed By: #### L [id number] ####Graphic Coordinator: VASHTI BAILEY ([phone])[address] Hemoglobin (Bld) [Mass/Vol] 7.9 g/dL Low 11.7-16.0 [facility] Comment on above: Performed By: #### L [id number] ####Graphic Coordinator: VASHTI BAILEY ([id number])[address] IMMATURE GRANS % 0.5 % Normal 0.0-2.0 [facility] Comment on above: Performed By: #### L [id number] ####Graphic Coordinator: VASHTI BAILEY ([id number])[address] IMMATURE GRANS ABSOLUTE 0.0 10*3/uL Normal <0.1 [facility] Comment on above: Performed By: #### L [id number] ####Graphic Coordinator: VASHTI BAILEY ([id number])[address] Lymphocytes (Bld) [#/Vol] 0.9 10*3/uL Low 1.0-4.3 [facility] Comment on above: Performed By: #### L [id number] ####Graphic Coordinator: VASHTI BAILEY ([id number])[facility])[address] [place] [address] Lymphocytes/100 WBC (Bld) 12.5 % Low 15.0-45.0 [facility] Comment on above: Performed By: #### L [id number] ####Graphic Coordinator: VASHTI BAILEY ([id number])[facility])[address] [place] [address] MCH (RBC) [Entitic mass] 27.1 pg Normal 26.0-34.0 [facility] Comment on above: Performed By: #### L [id number] ####Graphic Coordinator: VASHTI BAILEY ([id number])[facility])[address] [place] [address] MCHC 32.0 % Normal 30.5-36.0 [facility] Comment on above: Performed By: #### L [id number] ####Graphic Coordinator: VASHTI BAILEY ([phone])[facility])[address] [place] [address] MCV (RBC) [Entitic vol] 84.6 fL Normal 77.0-99.0 S [facility] Comment on above: Performed By: #### L [id number] ####Graphic Coordinator: VASHTI BAILEY ([phone])[facility])[address] [place] [address] Monocytes (Bld) [#/Vol] 0.8 10*3/uL Normal 0.0-0.9 [facility] Comment on above: Performed By: #### L [id number] ####Graphic Coordinator: VASHTI BAILEY ([phone])[facility])[address] [place] [address] Monocytes/100 WBC (Bld) 10.3 % Normal 5.0-13.0 S [facility] Comment on above: Performed By: #### L [id number] ####Graphic Coordinator: VASHTI BAILEY ([phone])[facility])[address] [place] [address] NEUTROPHILS ABSOLUTE 5.4 10*3/uL Normal 1.8-7.5 [facility] Comment on above: Performed By: #### L [id number] ####Graphic Coordinator: VASHTI BAILEY ([phone])[facility])[address] [place] [address] Neutrophils/100 WBC (Bld) 73.6 % Normal 38.0-82.0 [facility] Comment on above: Performed By: #### L [id number] ####Graphic Coordinator: VASHTI BAILEY ([phone])[facility] ([facility])[address] [place] [address] NRBC 0.0 /100 WBCs Normal 0.0-2.0 [facility] Comment on above: Performed By: #### L [id number] ####Graphic Coordinator: VASHTI BAILEY ([phone])[facility])[address] [place] [address] Platelet mean volume (Bld) [Entitic vol] 10.0 fL Normal 9.0-12.7 [facility] Comment on above: Performed By: #### L [id number] ####Graphic Coordinator: VASHTI BAILEY ([id number])[facility])[address] [place] [address] Platelets (Bld) [#/Vol] 171 10*3/uL Normal 140-440 [facility] Comment on above: Performed By: #### L [id number] ####Graphic Coordinator: VASHTI BAILEY ([id number])[facility])[address] [place] [address] RBC (Bld) [#/Vol] 2.92 10*6/uL Low 3.80-5.20 [facility] Comment on above: Performed By: #### L [id number] ####Graphic Coordinator: VASHTI BAILEY ([id number])[facility] ([facility])[address] [place] [address] [place] WBC (Bld) [#/Vol] 7.4 10*3/uL Normal 3.6-10.7 [facility] Comment on above: Performed By: #### L [id number] ####Graphic Coordinator: VASHTI BAILEY ([phone])[facility])[address] [place] [address] COMPREHENSIVE METABOLIC PANE Florentin 07-04-2025 Albumin [Mass/Vol] 2.5 g/dL Low 3.4-4.8 [facility] Comment on above: Performed By: #### L [id number], LAB17 ####Graphic Coordinator: VASHTI BAILEY ([phone])[facility])[address] [place] [address] ALP [Catalytic activity/Vol] 134 U/L Normal 40-150 [facility] Comment on above: Performed By: #### L [id number], LAB17 ####Graphic Coordinator: VASHTI BAILEY ([id number])[facility])[address] [place] [address] ALT [Catalytic activity/Vol] 36 U/L High <30 [facility] Comment on above: Performed By: #### L [id number], LAB17 ####Graphic Coordinator: VASHTI BAILEY ([phone])[facility])[address] [place] [address] Anion gap [Moles/Vol] 12 mmol/L Normal 3-13 [facility] Comment on above: Performed By: #### L [id number], LAB17 ####Graphic Coordinator: VASHTI BAILEY ([phone])[facility])[address] [place] [address] AST [Catalytic activity/Vol] 40 U/L High <34 [facility] Comment on above: Performed By: #### L [id number], LAB17 ####Graphic Coordinator: VASHTI BAILEY ([phone])[facility])[address] [place] [address] Bilirubin [Mass/Vol] 0.6 mg/dL Normal <1.2 [facility] Comment on above: Performed By: #### L [id number], LAB17 ####Graphic Coordinator: VASHTI BAILEY ([id number])[facility] [place] [address] Calcium [Mass/Vol] 9.9 mg/dL Normal 8.8-10.0 [facility] Comment on above: Performed By: #### L [id number], LAB17 ####Graphic Coordinator: VASHTI BAILEY ([phone])[facility] [place] [address] [place] Chloride [Moles/Vol] 91 mmol/L Low 98-107 [facility] Comment on above: Performed By: #### L [id number], LAB17 ####Graphic Coordinator: VASHTI BAILEY ([phone])[facility] [place] [address] CO2 [Moles/Vol] 29 mmol/L Normal 23-31 [facility] Comment on above: Performed By: #### L [id number], LAB17 ####Graphic Coordinator: VASHTI BAILEY ([id number])[facility] [place] [address] Creatinine [Mass/Vol] 4.92 mg/dL High 0.57-1.11 [facility] Comment on above: Performed By: #### L AB106, LAB17 ####Graphic Coordinator: VASHTI BAILEY ([phone])[facility])[address] [place] [address] [place] GLOMERULAR FILTRATION RATE ML/MIN/1.73 SQ M.PREDICTED 8.6 mL/min/1.73m*2 Low >60.0 [facility] Comment on above: Result Comment: Calc ulation based on the Chronic Kidney Disease Epidemiology Collaboration (CKD-EPI) equation refit without adjustment for race Performed By: #### L [id number], LAB17 ####Graphic Coordinator: VASHTI BAILEY ([id number])[facility] [place] [address] [place] Glucose [Mass/Vol] 125 mg/dL High 82-115 [facility] Comment on above: Performed By: #### L [id number], LAB17 ####Graphic Coordinator: VASHTI BAILEY ([id number])[facility])[address] [place] [address] Potassium [Moles/Vol] 4.7 mmol/L Normal 3.5-5.1 [facility] Comment on above: Result Comment: [facility] potassium values may be up to 0.5 mmol/L lower than serum values. Performed By: #### L AB106, LAB17 ####Graphic Coordinator: VASHTI BAILEY ([phone])[facility])[address] [place] [address] Protein [Mass/Vol] 6.7 g/dL Normal 6.4-8.3 [facility] Comment on above: Performed By: #### L [id number], LAB17 ####Graphic Coordinator: VASHTI BAILEY ([id number])[facility])[address] [place] [address] Sodium [Moles/Vol] 132 mmol/L Low 136-145 [facility] Comment on above: Performed By: #### L [id number], LAB17 ####Graphic Coordinator: VASHTI BAILEY ([id number])[facility])[address] [place] [address] Urea nitrogen [Mass/Vol] 106 mg/dL High 9-23 [facility] Comment on above: Performed By: #### L [id number], LAB17 ####Graphic Coordinator: VASHTI BAILEY ([phone])[facility])[address] [place] [address] Comprehensive metabolic 1998 panelon 07-04-2025 Albumin [Mass/Vol] 2.5 g/dL Low 3.4 - 4.8 g/dL [facility] ALP [Catalytic activity/Vol] 134 U/L 40 - 150 U/L [facility] ALT [Catalytic activity/Vol] 36 U/L High NINF - 30 U/L [facility] Anion gap [Moles/Vol] 12 mmol/L 3 - 13 mmol/L [facility] AST [Catalytic activity/Vol] 40 U/L High NINF - 34 U/L [facility] Bilirubin [Mass/Vol] 0.6 mg/dL NINF - 1.2 mg/dL [facility] Calcium [Mass/Vol] 9.9 mg/dL 8.8 - 10. 0 mg/dL [facility] Chloride [Moles/Vol] 91 mmol/L Low 98 - 10 7 mmol/L [facility] CO2 [Moles/Vol] 29 mmol/L 23 - 31 mmol/L [facility] Creatinine [Mass/Vol] 4.92 mg/dL High 0.57 - 1.11 mg/dL [facility] GFR/1.73 sq M.predicted (S/P/Bld) [Vol rate/Area] 8.6 mL/min Low - PINF [facility] Comment on above: Calculation based on the Chronic Kidney Disease Epidemiology Collaboration (CKD-EPI) equation refit without adjustment for race Glucose [Mass/Vol] 125 mg/dL High 82 - 115 mg/dL [facility] Interpretation and review of laboratory results Abnormal [facility] Potassium [Moles/Vol] 4.7 mmol/L 3.5 - 5.1 mmol/L [facility] Comment on above: Plasma potassium andrae ues may be up to 0.5 mmol/L lower than serum values. Protein [Mass/Vol] 6.7 g/dL 6.4 - 8.3 g/dL [facility] Sodium [Moles/Vol] 132 mmol/L Low 136 - 145 mmol/L [facility] Urea nitrogen [Mass/Vol] 106 mg/dL High 9 - 23 mg/dL [facility] ED Nursing Noteon 07-04-2025 ED Nursing Note Report given to RYNE Browning on T2 ICU Normal [facility] ED Nursing Note Patient incontinent of stool. Cleaned and repositioned to her R side with wedges. Normal [facility] ED Nursing Note Kangaroo pump requested as well as PEG nutrition Normal [facility] ED Provider Noteon ED Provider Note Normal [facility] Guidance for exchange of non -tunneled CV catheter of [place] 07-04-2025 Right-sided internal jugular tunneled dialysis catheter exchange, with its tip in the expected location of the cavoatrial junction. Plan: The catheter may be used immediately. PROCEDURE SUMMARY: - Tunneled central venous catheter exchange with fluoroscopic guidance - Additional procedure(s): None PROCEDURE DETAILS: Pre-procedure Consent: Informed consent for the procedure including risks, benefits and alternatives was obtained and time-out was performed prior to the procedure. Preparation (MIPS): The site was prepared and draped using all elements of maximal sterile barrier technique including sterile gloves, sterile gown, cap, mask, large sterile sheet, sterile ultrasound probe cover, hand hygiene and cutaneous antisepsis with 2% chlorhexidine. Medical reason for site preparation exception (MIPS): Not applicable Anesthesia/sedation Level of anesthesia/sedation: No sedation Venography Indication for venography: Not performed Catheter tip position for venography: Not applicable Venous segment imaged: Not applicable Findings: Not applicable Catheter exchange A wire was passed through the indwelling tunneled central venous catheter and into the central veins. The catheter was removed, and a new catheter was advanced under fluoroscopic guidance. Catheter tip location was fluoroscopically verified and a permanent image was stored. Catheter placed: 16 Fr 28 cm dual lumen Split Cath Tunneled Dialysis Catheter Catheter tip position: Cavoatrial junction. Catheter flush: Heparin (100 units/mL) Closure The catheter was secured. A sterile dressing was applied. Catheter securement technique: Non-absorbable suture Contrast Contrast agent: None Contrast volume (mL): 0 Radiation Dose Fluoroscopy time (minutes): 0.3 Fluoroscopy Dose: Ka,r = 6.7 mGy Additional Details Additional description of procedure: None Equipment details: None Specimens removed: None Estimated blood loss (mL): Less than 10 Report Dictated on Electronically Signed By: Yamil Newby DR Electronically Signed Date/Time: 07/04/2025 3:20 PM [facility] [employer] RADIOLOGY SYSTEM Patient Name: ROSA MYERS : 1950 Exam Date/Time: 07/04/2025 14:30 Procedure: IR CVC TUNNELED DIALYSIS CATH EXCHANGE Ordering Provider: FELDER AUSTIN Reason For Exam: Has a dialysis port that has not working. Able to flush and draw however alarming sounds on dialysis machine. Gets All[facility] Wednesday through Wednesday and already missed Wednesday and Wednesday sessions. PROCEDURE: Tunneled central venous catheter exchange Procedural Personnel Attending physician(s): Yamil Newby DR Indication: Poor dialysis function Additional clinical history: None Complications: No immediate complications. [facility] Yamil Newby MD - 07/04/2025 Patient Name: ROSA MYERS : 1950 Exam Date/Time: 07/04/2025 14:30 Procedure: IR CVC TUNNELED DIALYSIS CATH EXCHANGE Ordering Provider: FELDER AUSTIN Reason For Exam: Has a dialysis port that has not working. Able to flush and draw however alarming sounds on dialysis machine. Gets All[facility] Wednesday through Wednesday and already missed Wednesday and Wednesday sessions. PROCEDURE: Tunneled central venous catheter exchange Procedural Personnel Attending physician(s): Yamil Newby DR Indication: Poor dialysis function Additional clinical history: None Complications: No immediate complications. IMPRESSION: Right-sided internal jugular tunneled dialysis catheter exchange, with its tip in the expected location of the cavoatrial junction. Plan: The catheter may be used immediately. PROCEDURE SUMMARY: - Tunneled central venous catheter exchange with fluoroscopic guidance - Additional procedure(s): None PROCEDURE DETAILS: Pre-procedure Consent: Informed consent for the procedure including risks, benefits and alternatives was obtained and time-out was performed prior to the procedure. Preparation (MIPS): The site was prepared and draped using all elements of maximal sterile barrier technique including sterile gloves, sterile gown, cap, mask, large sterile sheet, sterile ultrasound probe cover, hand hygiene and cutaneous antisepsis with 2% chlorhexidine. Medical reason for site preparation exception (MIPS): Not applicable Anesthesia/sedation Level of anesthesia/sedation: No sedation Venography Indication for venography: Not performed Catheter tip position for venography: Not applicable Venous segment imaged: Not applicable Findings: Not applicable Catheter exchange A wire was passed through the indwelling tunneled central venous catheter and into the central veins. The catheter was removed, and a new catheter was advanced under fluoroscopic guidance. Catheter tip location was fluoroscopically verified and a permanent image was stored. Catheter placed: 16 Fr 28 cm dual lumen Split Cath Tunneled Dialysis Catheter Catheter tip position: Cavoatrial junction. Catheter flush: Heparin (100 units/mL) Closure The catheter was secured. A sterile dressing was applied. Catheter securement technique: Non-absorbable suture Contrast Contrast agent: None Contrast volume (mL): 0 Radiation Dose Fluoroscopy time (minutes): 0.3 Fluoroscopy Dose: Ka,r = 6.7 mGy Additional Details Additional description of procedure: None Equipment details: None Specimens removed: None Estimated blood loss (mL): Less than 10 Report Dictated on Electronically Signed By: Yamil Newby DR Electronically Signed Date/Time: 07/04/2025 3:20 PM EDT [facility] Radiology Study observation (narrative) [facility] betty Guidance for exchange of non -tunneled CV catheter of ChestOrdered By: Yamil Newby on 07-04-2025 [facility] Work Phone: HBV surface Ab IA Qnon 07-04 Interpretation: <8.0 Non-Reactive 8.0-11.9 Equivocal >= 12.0 Ab Detected Note: If an equivocal result is interpreted, an antibody status is unable to be determined. Collect new specimen if clinically indicated. [facility] HBV surface Ag IA Qlon 07-04 Interpretation and review of laboratory results Normal [facility] HEMOGLOBIN A1Con 07-04-2025 Glucose [Mass/Vol] 114 mg/dL Normal [facility] Comment on above: Result Comment: ORDE R COMMENTS:If not done within the last 3 [id number] values of 5.7-6.4 percent indicate an increased risk for developing diabetes mellitus. HbA1c values greater than or equal to 6.5 percent are diagnostic of diabetes mellitus. For diagnosis of diabetes in individuals without unequivocal hyperglycemia, results should be confirmed by repeat testing. Performed By: #### L [id number] ####Graphic Coordinator: VASHTI BAILEY ([id number])[facility] [place] [address] HEMOGLOBIN A1C 5.6 %HbA1C Normal <5.7 [facility] Comment on above: Result Comment: Norm al less than 5.7%Prediabetes 5.7% to 6.4%Diabetes 6.5% or higher--HgbA1C levels may not be accurate in patients who have renal disease, received recent blood transfusions, are anemic, or who have dyshemoglobinemia. Performed By: #### L AB90 ####Graphic Coordinator: VASHTI BAILEY ([phone])[facility])[address] [place] [address] HEPATITIS B SURFACE ANTIBODY on 07-04-2025 HEPATITIS B VIRUS SURFACE AB <8.0 Normal [facility] Comment on above: Result Comment: DORIAN R COMMENTS:Interpretation:<8.0 Non-Reactive8.0-11.9 Equivocal>= 12.0 Ab DetectedNote: If an equivocal result is interpreted, an antibody status is unable to be determined. Collect new specimen if clinically indicated. Performed By: #### L [id number], [id number] ####Graphic Coordinator: VASHTI BAILEY ([phone])[facility])[address] [place] [address] HEPATITIS B SURFACE ANTIGENo n 07-04-2025 HEPATITIS B VIRUS SURFACE AG Not detected Normal Not Detected [facility] Comment on above: Performed By: #### L [id number], [id number] ####Graphic Coordinator: VASHTI BAILEY ([id number])[facility])[address] [place] [address] Laboratory - Chemistry and C hemistry - challengeon 07-04-2025 Glucose [Mass/Vol] 137 mg/dL High 70 - 100 mg/dL [facility] Average glucose Estimated from glycated hemoglobin (Bld) [Mass/Vol] 114 mg/dL [facility] Laboratory - Hematology and Cell countson 07-04-2025 HbA1c (Bld) [Mass fraction] 5.6 % NINF [facility] Comment on above: Normal less than 5.7 % Prediabetes 5.7% to 6.4% Diabetes 6.5% or higher --HgbA1C levels may not be accurate in patients who have renal disease, received recent blood transfusions, are anemic, or who have dyshemoglobinemia. Laboratory - Microbiology an d Antimicrobial susceptibilityon 07-04-2025 HBV surface Ab IA Qn mIU/mL [facility] HBV surface Ag IA Ql Not detected Not Detected [facility] NT PRO BNPon 07-04-2025 Natriuretic peptide B (Bld) [Mass/Vol] 77760 pg/mL High <956 [facility] Comment on above: Result Comment: DORIAN Knight COMMENTS:In patients with suspected acute HF, NT-proBNP age-related cut-points are 450, 900, and 1800 pg/mL for ages <50, 50-75, and >75 years respectively.NT-proBNP concentration <300 pg/mL provides a very high NPV for HF in an acute setting, independent of age.In a non-acute setting, heart failure is unlikely with a NT-proBNP concentration <125 pg/mL while a value >600 pg/mL is likely due to heart failure.Patients with levels in the elizabeth zone (between rule-out and rule-in levels) need extra physician attention and ancillary testing.For the unusual patient aged <50 years with severe CKD, a cut point of 1,200 ng/L for NT-proBNP would be indicated.Testing is performed on a new assay on a new instrument and values may not correlate well with previous values. Performed By: #### L AB106, [id number] ####Graphic Coordinator: VASHTI BAILEY ([id number])[facility] ([address] Natriuretic peptide B [Mass/ Vol]Ordered By: Kellee Savage on 07-04-2025 Interpretation and review of laboratory results Abnormal [facility] Natriuretic peptide B (Bld) [Mass/Vol] 37173 pg/mL High NINF - 956 pg/mL [facility] In patients with suspected acute HF, NT-proBNP age-related cut-points are 450, 900, and 1800 pg/mL for ages <50, 50-75, and >75 years respectively. NT-proBNP concentration <300 pg/mL provides a very high NPV for HF in an acute setting, independent of age. In a non-acute setting, heart failure is unlikely with a NT-proBNP concentration <125 pg/mL while a value >600 pg/mL is likely due to heart failure. Patients with levels in the elizabeth zone (between rule-out and rule-in levels) need extra physician attention and ancillary testing. For the unusual patient aged <50 years with severe CKD, a cut point of 1,200 ng/L for NT-proBNP would be indicated. Testing is performed on a new assay on a new instrument and values may not correlate well with previous values. [facility] No Panel Informationon 07-04 Interpretation and review of laboratory results Abnormal [facility] Performed by: [facility], [address] [place] [address], [place] [address] CLIA ID: [id number] [facility] HbA1c values of 5.7-6.4 percent indicate an increased risk for developing diabetes mellitus. HbA1c values greater than or equal to 6.5 percent are diagnostic of diabetes mellitus. For diagnosis of diabetes in individuals without unequivocal hyperglycemia, results should be confirmed by repeat testing. [facility] Nursing Noteon 07-04-2025 Nursing Note Pt transported to ER 37 with RT. GUM MIXER aware of arrival Normal [facility] Nursing Note Normal [facility] Nursing Note Tunneled hd cath removed. Normal [facility] Nursing Note Normal [facility] Nursing Note Unable to place IV - sales team member notified. 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 RT Tamar was at bedside and switched pt from physicians transport [facility] Normal [facility] Progress Noteon 07-04-2025 Progress Note Normal [facility] CBC W Auto Differential pane l (Bld)on 07-03-2025 Basophils (Bld) [#/Vol] 0 10*3/uL 0.0 - 0.2 10*3/uL [facility] Basophils/100 WBC (Bld) 0.4 % 0.0 - 2.0 % [facility] Eosinophils (Bld) [#/Vol] 0.2 10*3/uL 0.0 - 0.5 10*3/uL [facility] Eosinophils/100 WBC (Bld) 2 % 0.0 - 6.0 % [facility] Erythrocyte distribution width (RBC) [Ratio] 19.6 % High 11.5 - 15.0 % [facility] Hematocrit (Bld) [Volume fraction] 25.1 % Low 35.0 - 47.0 % [facility] Hemoglobin (Bld) [Mass/Vol] 8 g/dL Low 11.7 - 16.0 g/dL [facility] Immature granulocytes (Bld) [#/Vol] 0.1 10*3/uL High NINF - 0.1 10*3/uL [facility] Immature granulocytes/100 WBC (Bld) 0.8 % 0.0 - 2.0 % [facility] Interpretation and review of laboratory results Abnormal [facility] Lymphocytes (Bld) [#/Vol] 0.8 10*3/uL Low 1.0 - 4.3 10*3/uL [facility] Lymphocytes/100 WBC (Bld) 11.3 % Low 15.0 - 45.0 % [facility] MCH (RBC) [Entitic mass] 27.2 pg 26.0 - 34.0 pg [facility] MCHC (RBC) [Mass/Vol] 31.9 % 30.5 - 36.0 % [facility] MCV (RBC) [Entitic vol] 85.4 fL 77.0 - 99.0 fL [facility] Monocytes (Bld) [#/Vol] 0.9 10*3/uL 0.0 - 0.9 10*3/uL [facility] Monocytes/100 WBC (Bld) 11.7 % 5.0 - 13.0 % [facility] Neutrophils (Bld) [#/Vol] 5.4 10*3/uL 1.8 - 7.5 10*3/uL [facility] Neutrophils/100 WBC (Bld) 73.8 % 38.0 - 82.0 % [facility] Nucleated RBC/100 WBC (Bld) [Ratio] 0 % [facility] Platelet mean volume (Bld) [Entitic vol] 10 fL 9.0 - 12.7 fL [facility] Platelets (Bld) [#/Vol] 197 10*3/uL 140 - 440 10*3/uL [facility] RBC (Bld) [#/Vol] 2.94 10*6/uL Low 3.80 - 5.2 0 10*6/uL [facility] WBC (Bld) [#/Vol] 7.3 10*3/uL 3.6 - 10.7 10*3/uL [facility] CBC WITH AUTO DIFFERENTIALon 07-03-2025 Basophils (Bld) [#/Vol] 0.0 10*3/uL Normal 0.0-0.2 [facility] Comment on above: Performed By: #### L [id number] ####Graphic Coordinator: VASHTI BAILEY ([phone])[facility])[address] [place] [address] Basophils/100 WBC (Bld) 0.4 % Normal 0.0-2.0 S [facility] Comment on above: Performed By: #### L [id number] ####Graphic Coordinator: VASHTI BAILEY ([id number])[facility])[address] [place] [address] Eosinophils (Bld) [#/Vol] 0.2 10*3/uL Normal 0.0-0.5 [facility] Comment on above: Performed By: #### L [id number] ####Graphic Coordinator: VASHTI BAILEY ([id number])[facility])[address] [place] [address] Eosinophils/100 WBC (Bld) 2.0 % Normal 0.0-6.0 [facility] Comment on above: Performed By: #### L [id number] ####Graphic Coordinator: VASHTI BAILEY ([id number])[facility])[address] [place] [address] Erythrocyte distribution width (RBC) [Ratio] 19.6 % High 11.5-15.0 [facility] Comment on above: Performed By: #### L [id number] ####Graphic Coordinator: VASHTI BAILEY ([id number])[facility])[address] [place] [address] Hematocrit (Bld) [Volume fraction] 25.1 % Low 35.0-47.0 [facility] Comment on above: Performed By: #### L [id number] ####Graphic Coordinator: VASHTI BAILEY ([phone])[facility])[address] [place] [address] Hemoglobin (Bld) [Mass/Vol] 8.0 g/dL Low 11.7-16.0 [facility] Comment on above: Performed By: #### L [id number] ####Graphic Coordinator: VASHTI BAILEY ([phone])[facility])[address] [place] [address] IMMATURE GRANS % 0.8 % Normal 0.0-2.0 [facility] Comment on above: Performed By: #### L [id number] ####Graphic Coordinator: VASHTI BAILEY ([phone])[facility])[address] [place] [address] IMMATURE GRANS ABSOLUTE 0.1 10*3/uL High <0.1 [facility] Comment on above: Performed By: #### L [id number] ####Graphic Coordinator: VASHTI BAILEY ([phone])[address] Lymphocytes (Bld) [#/Vol] 0.8 10*3/uL Low 1.0-4.3 [facility] Comment on above: Performed By: #### L [id number] ####Graphic Coordinator: VASHTI BAILEY ([id number])[address] Lymphocytes/100 WBC (Bld) 11.3 % Low 15.0-45.0 [facility] Comment on above: Performed By: #### L [id number] ####Graphic Coordinator: VASHTI BAILEY ([phone])[facility])[address] [place] [address] MCH (RBC) [Entitic mass] 27.2 pg Normal 26.0-34.0 [facility] Comment on above: Performed By: #### L [id number] ####Graphic Coordinator: VASHTI BAILEY ([id number])[address] MCHC 31.9 % Normal 30.5-36.0 [facility] Comment on above: Performed By: #### L [id number] ####Graphic Coordinator: VASHTI BIALEY ([id number])[facility])[address] [place] [address] MCV (RBC) [Entitic vol] 85.4 fL Normal 77.0-99.0 S [facility] Comment on above: Performed By: #### L [id number] ####Graphic Coordinator: VASHTI BAILEY ([id number])[facility])[address] [place] [address] [place] Monocytes (Bld) [#/Vol] 0.9 10*3/uL Normal 0.0-0.9 [facility] Comment on above: Performed By: #### L [id number] ####Graphic Coordinator: VASHTI BAILEY ([id number])[facility])[address] [place] [address] Monocytes/100 WBC (Bld) 11.7 % Normal 5.0-13.0 S [facility] Comment on above: Performed By: #### L [id number] ####Graphic Coordinator: VASHTI BAILEY ([phone])[facility])[address] [place] [address] [place] NEUTROPHILS ABSOLUTE 5.4 10*3/uL Normal 1.8-7.5 [facility] Comment on above: Performed By: #### L [id number] ####Graphic Coordinator: VASHTI BAILEY ([phone])[facility])[address] [place] [address] [place] Neutrophils/100 WBC (Bld) 73.8 % Normal 38.0-82.0 [facility] Comment on above: Performed By: #### L [id number] ####Graphic Coordinator: VASHTI BAILEY ([id number])[facility])[address] [place] [address] [place] NRBC 0.0 /100 WBCs Normal 0.0-2.0 [facility] Comment on above: Performed By: #### L [id number] ####Graphic Coordinator: VASHTI BAILEY ([id number])[facility])[address] [place] [address] Platelet mean volume (Bld) [Entitic vol] 10.0 fL Normal 9.0-12.7 [facility] Comment on above: Performed By: #### L [id number] ####Graphic Coordinator: VASHTI BAILEY ([id number])[facility])[address] [place] [address] Platelets (Bld) [#/Vol] 197 10*3/uL Normal 140-440 [facility] Comment on above: Performed By: #### L [id number] ####Graphic Coordinator: VASHTI BAILEY ([id number])[facility])[address] [place] [address] RBC (Bld) [#/Vol] 2.94 10*6/uL Low 3.80-5.20 [facility] Comment on above: Performed By: #### L [id number] ####Graphic Coordinator: VASHTI BAILEY ([id number])[facility])[address] [place] [address] WBC (Bld) [#/Vol] 7.3 10*3/uL Normal 3.6-10.7 [facility] Comment on above: Performed By: #### L [id number] ####Graphic Coordinator: VASHTI BAILEY ([id number])[facility])[address] [place] [address] COMPREHENSIVE METABOLIC PANE Florentin 07-03-2025 Albumin [Mass/Vol] 2.5 g/dL Low 3.4-4.8 [facility] Comment on above: Performed By: #### L AB17, [id number] ####Graphic Coordinator: VASHTI BAILEY ([id number])[facility])[address] [place] [address] ALP [Catalytic activity/Vol] 135 U/L Normal 40-150 [facility] Comment on above: Performed By: #### L AB17, [id number] ####Graphic Coordinator: VASHTI BAILEY ([id number])[facility])[address] [place] [address] ALT [Catalytic activity/Vol] 25 U/L Normal <30 [facility] Comment on above: Performed By: #### L AB17, [id number] ####Graphic Coordinator: VASHTI BAILEY ([id number])[facility])[address] [place] [address] Anion gap [Moles/Vol] 12 mmol/L Normal 3-13 [facility] Comment on above: Performed By: #### L AB17, [id number] ####Graphic Coordinator: VASHTI BAILEY ([id number])[facility])[address] [place] [address] AST [Catalytic activity/Vol] 39 U/L High <34 [facility] Comment on above: Performed By: #### L AB17, [id number] ####Graphic Coordinator: VASHTI BAILEY ([id number])[facility])[address] [place] [address] Bilirubin [Mass/Vol] 0.5 mg/dL Normal <1.2 [facility] Comment on above: Performed By: #### L AB17, [id number] ####Graphic Coordinator: VASHTI BAILEY ([id number])[facility])[address] [place] [address] Calcium [Mass/Vol] 10.1 mg/dL High 8.8-10.0 [facility] Comment on above: Performed By: #### L AB17, [id number] ####Graphic Coordinator: VASHTI BAILEY ([id number])[facility])[address] [place] [address] [place] Chloride [Moles/Vol] 92 mmol/L Low 98-107 [facility] Comment on above: Performed By: #### L AB17, [id number] ####Graphic Coordinator: VASHTI BAILEY ([id number])[facility])[address] [place] [address] [place] CO2 [Moles/Vol] 30 mmol/L Normal 23-31 [facility] Comment on above: Performed By: #### L AB17, [id number] ####Graphic Coordinator: VASHTI BAILEY ([id number])[facility])[address] [place] [address] Creatinine [Mass/Vol] 4.14 mg/dL High 0.57-1.11 [facility] Comment on above: Performed By: #### L AB17, [id number] ####Graphic Coordinator: VASHTI BAILEY ([id number])[facility])[address] [place] [address] [place] GLOMERULAR FILTRATION RATE ML/MIN/1.73 SQ M.PREDICTED 10.6 mL/min/1.73m*2 Low >60.0 [facility] Comment on above: Result Comment: Calc ulation based on the Chronic Kidney Disease Epidemiology Collaboration (CKD-EPI) equation refit without adjustment for race Performed By: #### L AB17, [id number] ####Graphic Coordinator: VASHTI BAILEY ([id number])[facility])[address] [place] [address] Glucose [Mass/Vol] 118 mg/dL High 82-115 [facility] Comment on above: Performed By: #### L AB17, [id number] ####Graphic Coordinator: VASHTI BAILEY ([id number])[address] Potassium [Moles/Vol] 3.9 mmol/L Normal 3.5-5.1 [facility] Comment on above: Result Comment: [facility] potassium values may be up to 0.5 mmol/L lower than serum values. Performed By: #### L AB17, [id number] ####Graphic Coordinator: VASHTI BAILEY ([id number])[facility])[address] [place] [address] [place] Protein [Mass/Vol] 6.8 g/dL Normal 6.4-8.3 [facility] Comment on above: Performed By: #### L AB17, [id number] ####Graphic Coordinator: VASHTI BAILEY ([id number])[facility])[address] [place] [address] [place] Sodium [Moles/Vol] 134 mmol/L Low 136-145 [facility] Comment on above: Performed By: #### L AB17, [id number] ####Graphic Coordinator: VASHTI BAILEY ([id number])[facility])[address] [place] [address] Urea nitrogen [Mass/Vol] 88 mg/dL High 9-23 [facility] Comment on above: Performed By: #### L AB17, [id number] ####Graphic Coordinator: VASHTI BAILEY ([id number])[facility] [place] [address] Comprehensive metabolic 1998 panelon 07-03-2025 Albumin [Mass/Vol] 2.5 g/dL Low 3.4 - 4.8 g/dL [facility] ALP [Catalytic activity/Vol] 135 U/L 40 - 150 U/L [facility] ALT [Catalytic activity/Vol] 25 U/L NINF - 30 U/L [facility] Anion gap [Moles/Vol] 12 mmol/L 3 - 13 mmol/L [facility] AST [Catalytic activity/Vol] 39 U/L High NINF - 34 U/L [facility] Bilirubin [Mass/Vol] 0.5 mg/dL NINF - 1.2 mg/dL [facility] Calcium [Mass/Vol] 10.1 mg/dL High 8.8 - 10. 0 mg/dL [facility] Chloride [Moles/Vol] 92 mmol/L Low 98 - 10 7 mmol/L [facility] CO2 [Moles/Vol] 30 mmol/L 23 - 31 mmol/L [facility] Creatinine [Mass/Vol] 4.14 mg/dL High 0.57 - 1.11 mg/dL [facility] GFR/1.73 sq M.predicted (S/P/Bld) [Vol rate/Area] 10.6 mL/min Low - PINF [facility] Comment on above: Calculation based on the Chronic Kidney Disease Epidemiology Collaboration (CKD-EPI) equation refit without adjustment for race Glucose [Mass/Vol] 118 mg/dL High 82 - 115 mg/dL [facility] Interpretation and review of laboratory results Abnormal [facility] Potassium [Moles/Vol] 3.9 mmol/L 3.5 - 5.1 mmol/L [facility] Comment on above: Plasma potassium andrae ues may be up to 0.5 mmol/L lower than serum values. Protein [Mass/Vol] 6.8 g/dL 6.4 - 8.3 g/dL [facility] Sodium [Moles/Vol] 134 mmol/L Low 136 - 145 mmol/L [facility] Urea nitrogen [Mass/Vol] 88 mg/dL High 9 - 23 mg/dL [facility] ECG 12-LEADon 07-03-2025 ECG 12-LEAD IMPRESSION: Sinus rhythm Atrial premature complexes Left bundle branch block No change compared to previous ekg Electronically Signed On 07-03-2025 13:49:02 EDT by Gerardo Felder Normal [facility] ED Provider Noteon ED Provider Note Normal [facility] Laboratory - Chemistry and C hemistry - challengeon 07-03-2025 Magnesium [Mass/Vol] 2.6 mg/dL 1.6 - 2 .6 mg/dL [facility] MAGNESIUMon 07-03-2025 Magnesium [Mass/Vol] 2.6 mg/dL Normal 1.6-2.6 [facility] Comment on above: Result Comment: DORIAN Knight COMMENTS:Higher values can be expected in females during menses. Performed By: #### L [id number], [id number] ####Graphic Coordinator: VASHTI BAILEY ([phone])[address] Magnesium [Mass/Vol]on 07-03 Interpretation and review of laboratory results Normal [facility] Higher values can be expected in females during menses. [facility] No Panel Informationon 07-03 [facility] P [place] -1 degrees [facility] MA Interval 175 ms [facility] QRS [place] -15 degrees [facility] QRSD Interval 177 ms [facility] QT Interval 516 ms [facility] QTC Interval 539 ms [facility] T Wave [place] 182 degrees [facility] Sinus rhythm Atrial premature complexes Left bundle branch block No change compared to previous ekg Electronically Signed On 07-03-2025 13:49:02 EDT by Gerardo Felder CV Gerardo Greenberg M D - 07/03/2025 IMPRESSION: Sinus rhythm Atrial premature complexes Left bundle branch block No change compared to previous ekg Electronically Signed On 07-03-2025 13:49:02 EDT by Gerardo Schroederchana [facility] Vital signson 07-03-2025 Heart rate 68 /min bpm [facility] XR Chest Single viewon 07-03 FINDINGS/IMPRESSION: Limitations: Patient positioning. Lines, tubes, and devices: Tracheostomy tube is unchanged in position. Right-sided dual-lumen tunneled dialysis catheter with its tip distal SVC. Previously seen right IJ central venous catheter has been removed. Cardiomediastinal silhouette: Mild cardiomegaly with atherosclerotic calcifications. Lungs/Pleura: Small left and trace layering right pleural effusions with left basilar atelectasis and/or pneumonia. Borderline central pulmonary vascular congestion. No pneumothorax. Osseous structures: Degenerative spondylosis in the visualized spine. Soft tissues: No soft tissue abnormality is detected. Report Dictated on Electronically Signed By: Edward Slade MD Electronically Signed Date/Time: 07/03/2025 2:48 PM EDT [facility] Patient Name: ROSA MYERS : 1950 Exam Date/Time: 07/03/2025 14:28 Procedure: XR CHEST 1 VIEW Ordering Provider: REDD JUSTIN Reason For Exam: dialysis port concerns CHEST - PORTABLE: CLINICAL INDICATION: dialysis port concerns TECHNIQUE: Portable AP COMPARISON: 06/08/2025. [facility] Amaris Slade MD - 07/03/2025 Patient Name: ROSA MYERS : 1950 Exam Date/Time: 07/03/2025 14:28 Procedure: XR CHEST 1 VIEW Ordering Provider: REDD JUSTIN Reason For Exam: dialysis port concerns CHEST - PORTABLE: CLINICAL INDICATION: dialysis port concerns TECHNIQUE: Portable AP COMPARISON: 06/08/2025. IMPRESSION: FINDINGS/IMPRESSION: Limitations: Patient positioning. Lines, tubes, and devices: Tracheostomy tube is unchanged in position. Right-sided dual-lumen tunneled dialysis catheter with its tip distal SVC. Previously seen right IJ central venous catheter has been removed. Cardiomediastinal silhouette: Mild cardiomegaly with atherosclerotic calcifications. Lungs/Pleura: Small left and trace layering right pleural effusions with left basilar atelectasis and/or pneumonia. Borderline central pulmonary vascular congestion. No pneumothorax. Osseous structures: Degenerative spondylosis in the visualized spine. Soft tissues: No soft tissue abnormality is detected. Report Dictated on Electronically Signed By: Edward Slade MD Electronically Signed Date/Time: 07/03/2025 2:48 PM EDT [facility] Radiology Study observation (narrative) [facility] XR Chest Single viewOrdered By: Amaris Slade on 07-03-2025 [employer] [facility] Work Phone: CBC W Auto Differential pane l (Bld)on 07-02-2025 Basophils (Bld) [#/Vol] 0.1 10*3/uL 0.0 - 0.2 10*3/uL [employer] [facility] Basophils/100 WBC (Bld) 0.7 % 0.0 - 2.0 % [facility] Eosinophils (Bld) [#/Vol] 0.2 10*3/uL 0.0 - 0.5 10*3/uL [employer] [facility] Eosinophils/100 WBC (Bld) 2.2 % 0.0 - 6.0 % [facility] Erythrocyte distribution width (RBC) [Ratio] 19.7 % High 11.5 - 15.0 % [employer] [facility] Hematocrit (Bld) [Volume fraction] 25.5 % Low 35.0 - 47.0 % [employer] [facility] Hemoglobin (Bld) [Mass/Vol] 8.2 g/dL Low 11.7 - 16.0 g/dL [employer] [facility] Immature granulocytes (Bld) [#/Vol] 0.1 10*3/uL High NINF - 0.1 10*3/uL [employer] [facility] Immature granulocytes/100 WBC (Bld) 0.9 % 0.0 - 2.0 % [facility] Interpretation and review of laboratory results Abnormal [employer] [facility] Lymphocytes (Bld) [#/Vol] 0.9 10*3/uL Low 1.0 - 4.3 10*3/uL [employer] [facility] Lymphocytes/100 WBC (Bld) 12.7 % Low 15.0 - 45.0 % [facility] MCH (RBC) [Entitic mass] 27.3 pg 26.0 - 34.0 pg [facility] MCHC (RBC) [Mass/Vol] 32.2 % 30.5 - 36.0 % [facility] MCV (RBC) [Entitic vol] 85 fL 77.0 - 99.0 fL [facility] Monocytes (Bld) [#/Vol] 0.9 10*3/uL 0.0 - 0.9 10*3/uL [facility] Monocytes/100 WBC (Bld) 12.9 % 5.0 - 13.0 % [facility] Neutrophils (Bld) [#/Vol] 4.8 10*3/uL 1.8 - 7.5 10*3/uL [facility] Neutrophils/100 WBC (Bld) 70.6 % 38.0 - 82.0 % [facility] Nucleated RBC/100 WBC (Bld) [Ratio] 0 % [facility] Platelet mean volume (Bld) [Entitic vol] 10 fL 9.0 - 12.7 fL [facility] Platelets (Bld) [#/Vol] 196 10*3/uL 140 - 440 10*3/uL [facility] RBC (Bld) [#/Vol] 3 10*6/uL Low 3.80 - 5.2 0 10*6/uL [facility] WBC (Bld) [#/Vol] 6.8 10*3/uL 3.6 - 10.7 10*3/uL [facility] CBC WITH AUTO DIFFERENTIALon 07-02-2025 Basophils (Bld) [#/Vol] 0.1 10*3/uL Normal 0.0-0.2 [facility] Comment on above: Performed By: #### L [id number] ####Graphic Coordinator: VASHTI BAILEY ([phone])[facility] ([address] Basophils/100 WBC (Bld) 0.7 % Normal 0.0-2.0 [facility] Comment on above: Performed By: #### L [id number] ####Graphic Coordinator: VASHTI BAILEY ([id number])[facility] [address] Eosinophils (Bld) [#/Vol] 0.2 10*3/uL Normal 0.0-0.5 [facility] Comment on above: Performed By: #### L [id number] ####Graphic Coordinator: VASHTI BAILEY ([phone])[facility])[address] [place] [address] Eosinophils/100 WBC (Bld) 2.2 % Normal 0.0-6.0 [facility] Comment on above: Performed By: #### L [id number] ####Graphic Coordinator: VASHTI BAILEY ([id number])[address] Erythrocyte distribution width (RBC) [Ratio] 19.7 % High 11.5-15.0 [facility] Comment on above: Performed By: #### L [id number] ####Graphic Coordinator: VASHTI BAILEY ([id number])[address] Hematocrit (Bld) [Volume fraction] 25.5 % Low 35.0-47.0 [facility] Comment on above: Performed By: #### L [id number] ####Graphic Coordinator: VASHTI BAILEY ([phone])[address] Hemoglobin (Bld) [Mass/Vol] 8.2 g/dL Low 11.7-16.0 [facility] Comment on above: Performed By: #### L [id number] ####Graphic Coordinator: VASHTI BAILEY ([phone])[facility])[address] [place] [address] IMMATURE GRANS % 0.9 % Normal 0.0-2.0 [facility] Comment on above: Performed By: #### L [id number] ####Graphic Coordinator: VASHTI BAILEY ([phone])[address] IMMATURE GRANS ABSOLUTE 0.1 10*3/uL High <0.1 [facility] Comment on above: Performed By: #### L [id number] ####Graphic Coordinator: VASHTI BAILEY ([phone])[facility])[address] [place] [address] Lymphocytes (Bld) [#/Vol] 0.9 10*3/uL Low 1.0-4.3 [facility] Comment on above: Performed By: #### L [id number] ####Graphic Coordinator: VASHTI BAILEY ([phone])[facility])[address] [place] [address] Lymphocytes/100 WBC (Bld) 12.7 % Low 15.0-45.0 [facility] Comment on above: Performed By: #### L [id number] ####Graphic Coordinator: VASHTI BAILEY ([phone])[facility])[address] [place] [address] MCH (RBC) [Entitic mass] 27.3 pg Normal 26.0-34.0 [facility] Comment on above: Performed By: #### L [id number] ####Graphic Coordinator: VASHTI BAILEY ([phone])[facility])[address] [place] [address] MCHC 32.2 % Normal 30.5-36.0 [facility] Comment on above: Performed By: #### L [id number] ####Graphic Coordinator: VASHTI BAILEY ([phone])[facility])[address] [place] [address] MCV (RBC) [Entitic vol] 85.0 fL Normal 77.0-99.0 [facility] Comment on above: Performed By: #### L [id number] ####Graphic Coordinator: VASHTI BAILEY ([id number])[facility])[address] [place] [address] Monocytes (Bld) [#/Vol] 0.9 10*3/uL Normal 0.0-0.9 [facility] Comment on above: Performed By: #### L [id number] ####Graphic Coordinator: VASHTI BAILEY ([id number])[facility] [place] [address] Monocytes/100 WBC (Bld) 12.9 % Normal 5.0-13.0 [facility] Comment on above: Performed By: #### L [id number] ####Graphic Coordinator: VASHTI BAILEY ([phone])[facility] ([facility])[address] [place] [address] NEUTROPHILS ABSOLUTE 4.8 10*3/uL Normal 1.8-7.5 [facility] Comment on above: Performed By: #### L [id number] ####Graphic Coordinator: VASHTI BAILEY ([id number])[facility] ([facility])[address] [place] [address] Neutrophils/100 WBC (Bld) 70.6 % Normal 38.0-82.0 [facility] Comment on above: Performed By: #### L [id number] ####Graphic Coordinator: VASHTI BAILEY ([phone])[facility] [place] [address] NRBC 0.0 /100 WBCs Normal 0.0-2.0 [facility] Comment on above: Performed By: #### L [id number] ####Graphic Coordinator: VASHTI BAILEY ([id number])[facility] ([facility])[address] [place] [address] Platelet mean volume (Bld) [Entitic vol] 10.0 fL Normal 9.0-12.7 [facility] Comment on above: Performed By: #### L [id number] ####Graphic Coordinator: VASHTI BAILEY ([id number])[facility] ([facility])[address] [place] [address] [place] Platelets (Bld) [#/Vol] 196 10*3/uL Normal 140-440 [facility] Comment on above: Performed By: #### L [id number] ####Graphic Coordinator: VASHTI BAILEY ([id number])[facility] ([facility])[address] [place] [address] RBC (Bld) [#/Vol] 3.00 10*6/uL Low 3.80-5.20 [facility] Comment on above: Performed By: #### L [id number] ####Graphic Coordinator: VASHTI BAILEY ([id number])[facility] ([facility])[address] [place] [address] WBC (Bld) [#/Vol] 6.8 10*3/uL Normal 3.6-10.7 [facility] Comment on above: Performed By: #### L [id number] ####Graphic Coordinator: VASHTI BAILEY ([id number])[facility])[address] [place] [address] COMPREHENSIVE METABOLIC PANE Florentin 07-02-2025 Albumin [Mass/Vol] 2.7 g/dL Low 3.4-4.8 [facility] Comment on above: Performed By: #### L [id number] ####Graphic Coordinator: VASHTI BAILEY ([phone])[facility] ([facility])[address] [place] [address] ALP [Catalytic activity/Vol] 141 U/L Normal 40-150 [facility] Comment on above: Performed By: #### L [id number] ####Graphic Coordinator: VASHTI BAILEY ([phone])[facility])[address] [place] [address] ALT [Catalytic activity/Vol] 26 U/L Normal <30 [facility] Comment on above: Performed By: #### L [id number] ####Graphic Coordinator: VASHTI BAILEY ([phone])[facility] ([facility])[address] [place] [address] Anion gap [Moles/Vol] 12 mmol/L Normal 3-13 [facility] Comment on above: Performed By: #### L [id number] ####Graphic Coordinator: VASHTI BAILEY ([id number])[facility] ([facility])[address] [place] [address] AST [Catalytic activity/Vol] 33 U/L Normal <34 [facility] Comment on above: Performed By: #### L [id number] ####Graphic Coordinator: VASHTI BAILEY ([phone])[facility] ([facility])[address] [place] [address] Bilirubin [Mass/Vol] 0.6 mg/dL Normal <1.2 [facility] Comment on above: Performed By: #### L [id number] ####Graphic Coordinator: VASHTI BAILEY ([id number])[facility])[address] [place] [address] Calcium [Mass/Vol] 10.1 mg/dL High 8.8-10.0 [facility] Comment on above: Performed By: #### L [id number] ####Graphic Coordinator: VASHTI BAILEY ([id number])[facility] ([facility])[address] [place] [address] Chloride [Moles/Vol] 91 mmol/L Low 98-107 [facility] Comment on above: Performed By: #### L AB17 ####Graphic Coordinator: VASHTI BAILEY ([id number])[facility] ([facility])[address] [place] [address] CO2 [Moles/Vol] 30 mmol/L Normal 23-31 [facility] Comment on above: Performed By: #### L AB17 ####Graphic Coordinator: VASHTI BAILEY ([id number])[facility])[address] [place] [address] Creatinine [Mass/Vol] 3.38 mg/dL High 0.57-1.11 [facility] Comment on above: Performed By: #### L [id number] ####Graphic Coordinator: VASHTI BAILEY ([phone])[facility] ([facility])[address] [place] [address] [place] GLOMERULAR FILTRATION RATE ML/MIN/1.73 SQ M.PREDICTED 13.5 mL/min/1.73m*2 Low >60.0 [facility] Comment on above: Result Comment: Calc ulation based on the Chronic Kidney Disease Epidemiology Collaboration (CKD-EPI) equation refit without adjustment for race Performed By: #### L [id number] ####Graphic Coordinator: VASHTI BAILEY ([id number])[facility] ([facility])[address] [place] [address] Glucose [Mass/Vol] 124 mg/dL High 82-115 [facility] Comment on above: Performed By: #### L [id number] ####Graphic Coordinator: VASHTI BAILEY ([phone])[facility] ([facility])[address] [place] [address] Potassium [Moles/Vol] 3.8 mmol/L Normal 3.5-5.1 [facility] Comment on above: Result Comment: [facility] potassium values may be up to 0.5 mmol/L lower than serum values. Performed By: #### L [id number] ####Graphic Coordinator: VASHTI BAILEY ([phone])[facility] ([facility])[address] [place] [address] Protein [Mass/Vol] 6.9 g/dL Normal 6.4-8.3 [facility] Comment on above: Performed By: #### L [id number] ####Graphic Coordinator: VASHTI BAILEY ([id number])[facility] ([facility])[address] [place] [address] Sodium [Moles/Vol] 133 mmol/L Low 136-145 [facility] Comment on above: Performed By: #### L [id number] ####Graphic Coordinator: VASHTI BAILEY ([phone])[facility])[address] [place] [address] Urea nitrogen [Mass/Vol] 74 mg/dL High 9-23 [facility] Comment on above: Performed By: #### L [id number] ####Graphic Coordinator: VASHTI BAILEY ([phone])[facility])[address] [place] [address] Comprehensive metabolic 1998 panelon 07-02-2025 Albumin [Mass/Vol] 2.7 g/dL Low 3.4 - 4.8 g/dL [facility] ALP [Catalytic activity/Vol] 141 U/L 40 - 150 U/L [facility] ALT [Catalytic activity/Vol] 26 U/L NINF - 30 U/L [facility] Anion gap [Moles/Vol] 12 mmol/L 3 - 13 mmol/L [facility] AST [Catalytic activity/Vol] 33 [facility]/L [facility] Bilirubin [Mass/Vol] 0.6 mg/dL NINF - 1.2 mg/dL [facility] Calcium [Mass/Vol] 10.1 mg/dL High 8.8 - 10. 0 mg/dL [facility] Chloride [Moles/Vol] 91 mmol/L Low 98 - 10 7 mmol/L [facility] CO2 [Moles/Vol] 30 mmol/L 23 - 31 mmol/L [facility] Creatinine [Mass/Vol] 3.38 mg/dL High 0.57 - 1.11 mg/dL [facility] GFR/1.73 sq M.predicted (S/P/Bld) [Vol rate/Area] 13.5 mL/min Low - PINF [facility] Comment on above: Calculation based on the Chronic Kidney Disease Epidemiology Collaboration (CKD-EPI) equation refit without adjustment for race Glucose [Mass/Vol] 124 mg/dL High 82 - 115 mg/dL [facility] Interpretation and review of laboratory results Abnormal [facility] Potassium [Moles/Vol] 3.8 mmol/L 3.5 - 5.1 mmol/L [facility] Comment on above: Plasma potassium andrae ues may be up to 0.5 mmol/L lower than serum values. Protein [Mass/Vol] 6.9 g/dL 6.4 - 8.3 g/dL [facility] Sodium [Moles/Vol] 133 mmol/L Low 136 - 145 mmol/L [facility] Urea nitrogen [Mass/Vol] 74 mg/dL High 9 - 23 mg/dL [facility] ED Nursing Noteon 07-02-2025 ED Nursing Note Discharge discussed with transport at this time. Patient leaves in stable condition. IV removed, gauze and tape placed over insertion site. 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 Normal [facility] ED Provider Noteon ED Provider Note Normal [facility] Respiratory Cultureon 2024 RESPC Normal [facility] Comment on above: Performed By: #### M , ####[facility] [id number] [place], [address] Gram Stainon 06-28-2025 GS 405-2 Acceptable Specimen? Yes (<25 Epithelial cells per/lpf) Gram Stain 4+ Gram positive rods Rare Gram negative rods 2+ White Blood Cells No Epithelial cells Normal [facility] Comment on above: Performed By: #### M , ####[facility] [id number] [place], [address] [id number] 06-21-2025 [id number] Correction/SNF - Return [employer] [phone] Returning to Facility Normal [facility] [phone] [facility] [phone] Transport requested 5PM in [employer]. Awaiting time confirmation. [facility] [phone] Discharge med list transmitted to [facility]URN BACK TO [facility] via [employer] per [facility] request. [facility] CBC (HEMOGRAM)on 06-21-2025 Erythrocyte distribution width (RBC) [Ratio] 17.9 % High 11.5-15.0 [facility] Comment on above: Performed By: #### L [id number] ####Graphic Coordinator: NATALIE GARCIA ([id number])[facility] ([facility])[address] Hematocrit (Bld) [Volume fraction] 23.2 % Low 35.0-47.0 [facility] Comment on above: Performed By: #### L [id number] ####Graphic Coordinator: NATALIE GARCIA ([phone])[facility] ([facility])[address] Hemoglobin (Bld) [Mass/Vol] 7.2 g/dL Low 11.7-16.0 [facility] Comment on above: Performed By: #### L [id number] ####Graphic Coordinator: NATALIE GARCIA ([id number])[facility] ([facility])[address] MCH (RBC) [Entitic mass] 26.3 pg Normal 26.0-34.0 [facility] Comment on above: Performed By: #### L [id number] ####Graphic Coordinator: NATALIE GARCIA ([id number])[facility] ([facility])[address] MCHC 31.0 % Normal 30.5-36.0 [facility] Comment on above: Performed By: #### L [id number] ####Graphic Coordinator: NATALIE GARCIA ([id number])[facility] ([facility])[address] MCV (RBC) [Entitic vol] 84.7 fL Normal 77.0-99.0 [facility] Comment on above: Performed By: #### L [id number] ####Graphic Coordinator: NATALIE GARCIA ([id number])[facility] ([facility])[address] Platelet mean volume (Bld) [Entitic vol] 9.9 fL Normal 9.0-12.7 [facility] Comment on above: Performed By: #### L [id number] ####Graphic Coordinator: NATALIE GARCIA ([phone])[facility] [place] ([facility])[address] Platelets (Bld) [#/Vol] 242 10*3/uL Normal 140-440 [facility] Comment on above: Performed By: #### L [id number] ####Graphic Coordinator: NATALIE GARCIA ([id number])[facility] [place] ([facility])[address] RBC (Bld) [#/Vol] 2.74 10*6/uL Low 3.80-5.20 [facility] Comment on above: Performed By: #### L [id number] ####Graphic Coordinator: NATALIE SIMONGRISELTRICIA ([id number])[facility] ([facility])[address] WBC (Bld) [#/Vol] 7.0 10*3/uL Normal 3.6-10.7 [facility] Comment on above: Performed By: #### L [id number] ####Graphic Coordinator: NATALIE GARCIA ([phone])[facility] ([facility])[address] CBC panel Auto (Bld)on 06-21 Erythrocyte distribution width (RBC) [Ratio] 17.9 % High 11.5 - 15.0 % [facility] Hematocrit (Bld) [Volume fraction] 23.2 % Low 35.0 - 47.0 % [facility] Hemoglobin (Bld) [Mass/Vol] 7.2 g/dL Low 11.7 - 16.0 g/dL [facility] Interpretation and review of laboratory results Abnormal [facility] MCH (RBC) [Entitic mass] 26.3 pg 26.0 - 34.0 pg [facility] MCHC (RBC) [Mass/Vol] 31 % 30.5 - 36.0 % [facility] MCV (RBC) [Entitic vol] 84.7 fL 77.0 - 99.0 fL [facility] Platelet mean volume (Bld) [Entitic vol] 9.9 fL 9.0 - 12.7 fL [facility] Platelets (Bld) [#/Vol] 242 10*3/uL 140 - 440 10*3/uL [facility] RBC (Bld) [#/Vol] 2.74 10*6/uL Low 3.80 - 5.2 0 10*6/uL [facility] WBC (Bld) [#/Vol] 7 10*3/uL 3.6 - 10.7 10*3/uL [facility] COMPREHENSIVE METABOLIC PANE Florentin 06-21-2025 Albumin [Mass/Vol] 2.2 g/dL Low 3.4-4.8 [facility] Comment on above: Performed By: #### L AB103, LAB17 ####Graphic Coordinator: NATALIE GARCIA ([phone])[facility] [place] ([facility])[address] ALP [Catalytic activity/Vol] 113 U/L Normal 40-150 [facility] Comment on above: Performed By: #### L AB103, LAB17 ####Graphic Coordinator: NATALIE GARCIA ([id number])[facility] [place] ([facility])[address] ALT [Catalytic activity/Vol] 8 U/L Normal <30 [facility] Comment on above: Performed By: #### L AB103, LAB17 ####Graphic Coordinator: NATALIE GARCIA ([id number])[facility] [place] (SBHLAB)[address] Anion gap [Moles/Vol] 10 mmol/L Normal 3-13 [facility] Comment on above: Performed By: #### L AB103, LAB17 ####Graphic Coordinator: NATALIE GARCIA ([id number])[facility] [place] (SBHLAB)[address] AST [Catalytic activity/Vol] 19 U/L Normal <34 [facility] Comment on above: Performed By: #### L AB103, LAB17 ####Graphic Coordinator: NATALIE GARCIA ([id number])[facility] [place] (SBHLAB)[address] Bilirubin [Mass/Vol] 0.6 mg/dL Normal <1.2 [facility] Comment on above: Performed By: #### L AB103, LAB17 ####Graphic Coordinator: NATALIE GARCIA ([id number])[facility] [place] (SBHLAB)[address] Calcium [Mass/Vol] 8.7 mg/dL Low 8.8-10.0 [facility] Comment on above: Performed By: #### L AB103, LAB17 ####Graphic Coordinator: NATALIE GARCIA ([id number])[facility] [place] (SBHLAB)155 [place] [address] [place] Chloride [Moles/Vol] 98 mmol/L Normal 98-107 [facility] Comment on above: Performed By: #### L AB103, LAB17 ####Graphic Coordinator: NATALIE GARCIA ([id number])[facility]ITAL[facility] Miguel [place] (SBHLAB)155 [place] [address] [place] CO2 [Moles/Vol] 27 mmol/L Normal 23-31 [facility] Comment on above: Performed By: #### L AB103, LAB17 ####Graphic Coordinator: NATALIE GARCIA ([id number])[facility] [place] (SBHLAB)[address] Creatinine [Mass/Vol] 2.06 mg/dL High 0.57-1.11 [facility] Comment on above: Performed By: #### L AB103, LAB17 ####Graphic Coordinator: NATALIE GARCIA ([id number])[facility] [place] (SBHLAB)155 [place] [address] [place] GLOMERULAR FILTRATION RATE ML/MIN/1.73 SQ M.PREDICTED 24.4 mL/min/1.73m*2 Low >60.0 [facility] Comment on above: Result Comment: Calc ulation based on the Chronic Kidney Disease Epidemiology Collaboration (CKD-EPI) equation refit without adjustment for race Performed By: #### L AB103, LAB17 ####Graphic Coordinator: NATALIE GARCIA ([id number])[facility] [place] (SBHLAB)155 [place] [address] [place] Glucose [Mass/Vol] 103 mg/dL Normal 82-115 [facility] Comment on above: Performed By: #### L AB103, LAB17 ####Graphic Coordinator: NATALIE GARCIA ([id number])[facility]ITAL[facility] Miguel [facility] (SBHLAB)155 [place] [address] [place] Potassium [Moles/Vol] 3.5 mmol/L Normal 3.5-5.1 [facility] Comment on above: Result Comment: [facility] potassium values may be up to 0.5 mmol/L lower than serum values. Performed By: #### L AB103, LAB17 ####Graphic Coordinator: NATALIE GARCIA ([id number])[facility] (SBHLAB)[address] Protein [Mass/Vol] 6.4 g/dL Normal 6.4-8.3 [facility] Comment on above: Performed By: #### L AB103, LAB17 ####Graphic Coordinator: NATALIE GARCIA ([id number])[facility] [place] (SBHLAB)[address] Sodium [Moles/Vol] 135 mmol/L Low 136-145 [facility] Comment on above: Performed By: #### L AB103, LAB17 ####Graphic Coordinator: NATALIE GARCIA ([id number])[facility] (SBHLAB)[address] Urea nitrogen [Mass/Vol] 22 mg/dL Normal 9-23 [facility] Comment on above: Performed By: #### L AB103, LAB17 ####Graphic Coordinator: NATALIE GARCIA ([id number])[facility] (SBHLAB)[address] [place] [address] Comprehensive metabolic 1998 panelon 06-21-2025 Albumin [Mass/Vol] 2.2 g/dL Low 3.4 - 4.8 g/dL [facility] ALP [Catalytic activity/Vol] 113 U/L 40 - 150 U/L [facility] ALT [Catalytic activity/Vol] 8 U/L NINF - 30 U/L [facility] Anion gap [Moles/Vol] 10 mmol/L 3 - 13 mmol/L [facility] AST [Catalytic activity/Vol] 19 U/L NINF - 34 U/L [facility] Bilirubin [Mass/Vol] 0.6 mg/dL NINF - 1.2 mg/dL [facility] Calcium [Mass/Vol] 8.7 mg/dL Low 8.8 - 10. 0 mg/dL [facility] Chloride [Moles/Vol] 98 mmol/L 98 - 10 7 mmol/L [facility] CO2 [Moles/Vol] 27 mmol/L 23 - 31 mmol/L [facility] Creatinine [Mass/Vol] 2.06 mg/dL High 0.57 - 1.11 mg/dL [facility] GFR/1.73 sq M.predicted (S/P/Bld) [Vol rate/Area] 24.4 mL/min Low - PINF [facility] Glucose [Mass/Vol] 103 mg/dL 82 - 115 mg/dL [facility] Interpretation and review of laboratory results Abnormal [facility] Potassium [Moles/Vol] 3.5 mmol/L 3.5 - 5.1 mmol/L [facility] Protein [Mass/Vol] 6.4 g/dL 6.4 - 8.3 g/dL [facility] Sodium [Moles/Vol] 135 mmol/L Low 136 - 145 mmol/L [facility] Urea nitrogen [Mass/Vol] 22 mg/dL 9 - 23 mg/dL [facility] Laboratory - Chemistry and C hemistry - challengeon 06-21-2025 Glucose [Mass/Vol] 93 mg/dL 70 - 100 mg/dL [facility] Glucose [Mass/Vol] 85 mg/dL 70 - 100 mg/dL [facility] Glucose [Mass/Vol] 87 mg/dL 70 - 100 mg/dL [facility] Glucose [Mass/Vol] 75 mg/dL 70 - 100 mg/dL [facility] Magnesium [Mass/Vol] 1.9 mg/dL 1.6 - 2 .6 mg/dL [facility] MAGNESIUMon 06-21-2025 Magnesium [Mass/Vol] 1.9 mg/dL Normal 1.6-2.6 [facility] Comment on above: Result Comment: DORIAN Knight COMMENTS:Higher values can be expected in females during menses. Performed By: #### L AB103, LAB17 ####Graphic Coordinator: NATALIE GARCIA ([id number])[facility] [place] (SBHLAB)[address] [place] [address] Magnesium [Mass/Vol]on 06-21 Interpretation and review of laboratory results Normal [facility] No Panel Informationon 06-21 Interpretation and review of laboratory results Normal [facility] Interpretation and review of laboratory results Normal [facility] Interpretation and review of laboratory results Normal [facility] Interpretation and review of laboratory results Normal [facility] Nursing Noteon 06-21-2025 Nursing Note Normal [facility] Progress Noteon 06-21-2025 Progress [facility] Progress [facility] RF Guidance for removal of t unneled CV catheteron 06-21-2025 [facility] Radiology Study observation (narrative) [facility] alth [id number] 06-20-2025 [id number] Normal [facility] CBC W Auto Differential pane l (Bld)on 06-20-2025 Basophils (Bld) [#/Vol] 0.1 10*3/uL 0.0 - 0.2 10*3/uL [facility] Basophils/100 WBC (Bld) 1 % 0.0 - 2.0 % [facility] Eosinophils (Bld) [#/Vol] 0.2 10*3/uL 0.0 - 0.5 10*3/uL [facility] Eosinophils/100 WBC (Bld) 4 % 0.0 - 6.0 % [facility] Erythrocyte distribution width (RBC) [Ratio] 18.5 % High 11.5 - 15.0 % [facility] Hematocrit (Bld) [Volume fraction] 25.2 % Low 35.0 - 47.0 % [facility] Hemoglobin (Bld) [Mass/Vol] 7.8 g/dL Low 11.7 - 16.0 g/dL [facility] Immature granulocytes (Bld) [#/Vol] 0 10*3/uL NINF - 0.1 10*3/uL [facility] Immature granulocytes/100 WBC (Bld) 0.5 % 0.0 - 2.0 % [facility] Interpretation and review of laboratory results Abnormal [facility] Lymphocytes (Bld) [#/Vol] 0.8 10*3/uL Low 1.0 - 4.3 10*3/uL [facility] Lymphocytes/100 WBC (Bld) 13.9 % Low 15.0 - 45.0 % [facility] MCH (RBC) [Entitic mass] 26.4 pg 26.0 - 34.0 pg [facility] MCHC (RBC) [Mass/Vol] 31 % 30.5 - 36.0 % [facility] MCV (RBC) [Entitic vol] 85.4 fL 77.0 - 99.0 fL [facility] Monocytes (Bld) [#/Vol] 0.7 10*3/uL 0.0 - 0.9 10*3/uL [facility] Monocytes/100 WBC (Bld) 11.6 % 5.0 - 13.0 % [facility] Neutrophils (Bld) [#/Vol] 4.2 10*3/uL 1.8 - 7.5 10*3/uL [facility] Neutrophils/100 WBC (Bld) 69 % 38.0 - 82.0 % [facility] Nucleated RBC/100 WBC (Bld) [Ratio] 0 % [facility] Platelet mean volume (Bld) [Entitic vol] 10 fL 9.0 - 12.7 fL [facility] Platelets (Bld) [#/Vol] 240 10*3/uL 140 - 440 10*3/uL [facility] RBC (Bld) [#/Vol] 2.95 10*6/uL Low 3.80 - 5.2 0 10*6/uL [facility] WBC (Bld) [#/Vol] 6.1 10*3/uL 3.6 - 10.7 10*3/uL [facility] CBC WITH AUTO DIFFERENTIALon 06-20-2025 Basophils (Bld) [#/Vol] 0.1 10*3/uL Normal 0.0-0.2 [facility] Comment on above: Performed By: #### L [id number] ####Graphic Coordinator: NATALIE GARCIA ([id number])[facility] (SBHLAB)[address] [place] [address] Basophils/100 WBC (Bld) 1.0 % Normal 0.0-2.0 [facility] Comment on above: Performed By: #### L [id number] ####Graphic Coordinator: NATALIE GARCIA ([id number])[facility] (SBHLAB)[address] Eosinophils (Bld) [#/Vol] 0.2 10*3/uL Normal 0.0-0.5 [facility] Comment on above: Performed By: #### L [id number] ####Graphic Coordinator: NATALIE GARCIA ([id number])[facility] [place] (SBHLAB)[address] Eosinophils/100 WBC (Bld) 4.0 % Normal 0.0-6.0 [facility] Comment on above: Performed By: #### L [id number] ####Graphic Coordinator: NATALIE GARCIA ([id number])[facility] ([facility] Erythrocyte distribution width (RBC) [Ratio] 18.5 % High 11.5-15.0 [facility] Comment on above: Performed By: #### L [id number] ####Graphic Coordinator: NATALIE GARCIA ([id number])[facility] ([facility])[address] Hematocrit (Bld) [Volume fraction] 25.2 % Low 35.0-47.0 [facility] Comment on above: Performed By: #### L [id number] ####Graphic Coordinator: NAATLIE GARCIA ([id number])[facility] ([facility])[address] Hemoglobin (Bld) [Mass/Vol] 7.8 g/dL Low 11.7-16.0 [facility] Comment on above: Performed By: #### L [id number] ####Graphic Coordinator: NATALIE GARICA ([id number])[facility] [place] (SBHLAB)[address] IMMATURE GRANS % 0.5 % Normal 0.0-2.0 [facility] Comment on above: Performed By: #### L [id number] ####Graphic Coordinator: NATALIE GARCIA ([id number])[facility] (SBAB)[address] IMMATURE GRANS ABSOLUTE 0.0 10*3/uL Normal <0.1 [facility] Comment on above: Performed By: #### L [id number] ####Graphic Coordinator: NATALIE GARCIA ([id number])[facility]ITAL[facility] [place]ELI[place] (SBHLAB)[address] Lymphocytes (Bld) [#/Vol] 0.8 10*3/uL Low 1.0-4.3 [facility] Comment on above: Performed By: #### L [id number] ####Graphic Coordinator: NATALIE GARCIA ([id number])[facility]ITAL[facility]IT[facility] (SBHLAB)[address] Lymphocytes/100 WBC (Bld) 13.9 % Low 15.0-45.0 [facility] Comment on above: Performed By: #### L [id number] ####Graphic Coordinator: NATALIE GARCIA ([id number])[facility]ITALJosé Miguel [facility]HMANGALLUP [facility] CENTERLaurel (SBHLAB)[address] MCH (RBC) [Entitic mass] 26.4 pg Normal 26.0-34.0 [facility] Comment on above: Performed By: #### L [id number] ####Graphic Coordinator: NATALIE GARCIA ([id number])[facility]ITALJosé Miguel [facility]ALL[facility]ENTERLa[facility] (SBHLAB)[address] MCHC 31.0 % Normal 30.5-36.0 [facility] Comment on above: Performed By: #### L [id number] ####Graphic Coordinator: NATALIE GARCIA ([id number])[facility]ITALJos[facility] Miguel [facility] (SBHLAB)[address] MCV (RBC) [Entitic vol] 85.4 fL Normal 77.0-99.0 [facility] Comment on above: Performed By: #### L [id number] ####Graphic Coordinator: NATALIE GARCIA ([id number])[facility]ITALJos[facility] (SBHLAB)155 [place] [address] [place] Monocytes (Bld) [#/Vol] 0.7 10*3/uL Normal 0.0-0.9 [facility] Comment on above: Performed By: #### L [id number] ####Graphic Coordinator: NATALIE GARCIA ([id number])[facility] [place] (SBHLAB)[address] Monocytes/100 WBC (Bld) 11.6 % Normal 5.0-13.0 [facility] Comment on above: Performed By: #### L [id number] ####Graphic Coordinator: NATALIE GARCIA ([id number])[facility] [place] (SBHLAB)[address] NEUTROPHILS ABSOLUTE 4.2 10*3/uL Normal 1.8-7.5 [facility] Comment on above: Performed By: #### L [id number] ####Graphic Coordinator: NATALIE GARCIA ([id number])[facility] [place] (SBHLAB)[address] Neutrophils/100 WBC (Bld) 69.0 % Normal 38.0-82.0 [facility] Comment on above: Performed By: #### L [id number] ####Graphic Coordinator: NATALIE GARCIA ([id number])[facility] [place] (SBHLAB)[address] NRBC 0.0 /100 WBCs Normal 0.0-2.0 [facility] Comment on above: Performed By: #### L [id number] ####Graphic Coordinator: NATALIE GARCIA ([id number])[facility] [place] (SBHLAB)[address] Platelet mean volume (Bld) [Entitic vol] 10.0 fL Normal 9.0-12.7 [facility] Comment on above: Performed By: #### L [id number] ####Graphic Coordinator: NATALIE GARCIA ([id number])[facility] [place] (SBHLAB)155 [place] [address] [place] Platelets (Bld) [#/Vol] 240 10*3/uL Normal 140-440 [facility] Comment on above: Performed By: #### L [id number] ####Graphic Coordinator: NATALIE GARCIA ([id number])[facility]ITALJosé Miguel [facility] (SBHLAB)[address] RBC (Bld) [#/Vol] 2.95 10*6/uL Low 3.80-5.20 [facility] Comment on above: Performed By: #### L [id number] ####Graphic Coordinator: NATALIE GARCIA ([id number])[facility] (SBHLAB)[address] WBC (Bld) [#/Vol] 6.1 10*3/uL Normal 3.6-10.7 [facility] Comment on above: Performed By: #### L [id number] ####Graphic Coordinator: NATALIE GARCIA ([id number])[facility] (SBHLAB)[address] COMPREHENSIVE METABOLIC PANE Florentin 06-20-2025 Albumin [Mass/Vol] 2.3 g/dL Low 3.4-4.8 [facility] Comment on above: Performed By: #### L [id number] ####Graphic Coordinator: NATALIE GARCIA ([id number])[facility]ITALJosé Miguel [facility] (SBHLAB)[address] ALP [Catalytic activity/Vol] 123 U/L Normal 40-150 [facility] Comment on above: Performed By: #### L [id number] ####Graphic Coordinator: NATALIE GARCIA ([id number])[facility]ALL[facility] (SBHLAB)[address] ALT [Catalytic activity/Vol] 9 U/L Normal <30 [facility] Comment on above: Performed By: #### L [id number] ####Graphic Coordinator: NATALIE GARCIA ([id number])[facility] (SBHLAB)[address] Anion gap [Moles/Vol] 12 mmol/L Normal 3-13 [facility] Comment on above: Performed By: #### L [id number] ####Graphic Coordinator: NATALIE GARCIA ([id number])[facility] [place] (SBHLAB)[address] AST [Catalytic activity/Vol] 19 U/L Normal <34 [facility] Comment on above: Performed By: #### L [id number] ####Graphic Coordinator: NATALIE GARCIA ([id number])[facility] (SBHLAB)[address] Bilirubin [Mass/Vol] 0.6 mg/dL Normal <1.2 [facility] Comment on above: Performed By: #### L [id number] ####Graphic Coordinator: NATALIE GARCIA ([id number])[facility] (HLAB)[address] Calcium [Mass/Vol] 9.1 mg/dL Normal 8.8-10.0 [facility] Comment on above: Performed By: #### L [id number] ####Graphic Coordinator: NATALIE GARCIA ([id number])[facility] (HLAB)[address] Chloride [Moles/Vol] 97 mmol/L Low 98-107 [facility] Comment on above: Performed By: #### L [id number] ####Graphic Coordinator: NATALIE GARCIA ([id number])[facility] BARBGALLUP [facility]DI[facility]ERN (SBHLAB)[address] [place] [address] [place] CO2 [Moles/Vol] 26 mmol/L Normal 23-31 [facility] Comment on above: Performed By: #### L [id number] ####Graphic Coordinator: NATALIE GARCIA ([id number])[facility] (SBHLAB)[address] Creatinine [Mass/Vol] 2.85 mg/dL High 0.57-1.11 [facility] Comment on above: Performed By: #### L [id number] ####Graphic Coordinator: NATALIE GARCIA ([id number])[facility]BGALL[facility] (SBHLAB)[address] GLOMERULAR FILTRATION RATE ML/MIN/1.73 SQ M.PREDICTED 16.5 mL/min/1.73m*2 Low >60.0 [facility] Comment on above: Result Comment: Calc ulation based on the Chronic Kidney Disease Epidemiology Collaboration (CKD-EPI) equation refit without adjustment for race Performed By: #### L [id number] ####Graphic Coordinator: NATALIE GARCIA ([id number])[facility] (SBHLAB)[address] Glucose [Mass/Vol] 129 mg/dL High 82-115 [facility] Comment on above: Performed By: #### L [id number] ####Graphic Coordinator: NATALIE GARCIA ([id number])[facility] (SBHLAB)[address] Potassium [Moles/Vol] 3.9 mmol/L Normal 3.5-5.1 [facility] Comment on above: Result Comment: [facility] potassium values may be up to 0.5 mmol/L lower than serum values. Performed By: #### L AB17 ####Graphic Coordinator: NATALIE GARCIA ([id number])[facility]BGALLUP [facility] (SBHLAB)[address] Protein [Mass/Vol] 6.5 g/dL Normal 6.4-8.3 [facility] Comment on above: Performed By: #### L [id number] ####Graphic Coordinator: NATALIE GARCIA ([id number])[facility] BARBGALLUP [facility]ERN (SBHLAB)[address] [place] [address] [place] Sodium [Moles/Vol] 135 mmol/L Low 136-145 [facility] Comment on above: Performed By: #### L [id number] ####Graphic Coordinator: NATALIE GARCIA ([id number])[facility] (SBHLAB)[address] [place] [address] [place] Urea nitrogen [Mass/Vol] 35 mg/dL High 9-23 [facility] Comment on above: Performed By: #### L [id number] ####Graphic Coordinator: NATALIE GARCIA ([id number])[facility] LANLaurel (SBHLAB)[address] [place] [address] Comprehensive metabolic 1998 panelon 06-20-2025 Albumin [Mass/Vol] 2.3 g/dL Low 3.4 - 4.8 g/dL [facility] ALP [Catalytic activity/Vol] 123 U/L 40 - 150 U/L [facility] ALT [Catalytic activity/Vol] 9 U/L NINF - 30 U/L [facility] Anion gap [Moles/Vol] 12 mmol/L 3 - 13 mmol/L [facility] AST [Catalytic activity/Vol] 19 U/L NINF - 34 U/L [facility] Bilirubin [Mass/Vol] 0.6 mg/dL NINF - 1.2 mg/dL [facility] Calcium [Mass/Vol] 9.1 mg/dL 8.8 - 10. 0 mg/dL [facility] Chloride [Moles/Vol] 97 mmol/L Low 98 - 10 7 mmol/L [facility] CO2 [Moles/Vol] 26 mmol/L 23 - 31 mmol/L [facility] Creatinine [Mass/Vol] 2.85 mg/dL High 0.57 - 1.11 mg/dL [facility] GFR/1.73 sq M.predicted (S/P/Bld) [Vol rate/Area] 16.5 mL/min Low - PINF [facility] Glucose [Mass/Vol] 129 mg/dL High 82 - 115 mg/dL [facility] Interpretation and review of laboratory results Abnormal [facility] Potassium [Moles/Vol] 3.9 mmol/L 3.5 - 5.1 mmol/L [facility] Protein [Mass/Vol] 6.5 g/dL 6.4 - 8.3 g/dL [facility] Sodium [Moles/Vol] 135 mmol/L Low 136 - 145 mmol/L [facility] Urea nitrogen [Mass/Vol] 35 mg/dL High 9 - 23 mg/dL [facility] Laboratory - Chemistry and C hemistry - challengeon 06-20-2025 Glucose [Mass/Vol] 118 mg/dL High 70 - 100 mg/dL [facility] Glucose [Mass/Vol] 108 mg/dL High 70 - 100 mg/dL [facility] Glucose [Mass/Vol] 127 mg/dL High 70 - 100 mg/dL [facility] Glucose [Mass/Vol] 127 mg/dL High 70 - 100 mg/dL [facility] No Panel Informationon 06-20 Interpretation and review of laboratory results Abnormal [facility] Interpretation and review of laboratory results Abnormal [facility] Interpretation and review of laboratory results Abnormal [facility] Interpretation and review of laboratory results Abnormal [facility] Nursing Noteon 06-20-2025 Nursing Note Normal [facility] Progress Noteon 06-20-2025 Progress [facility] Progress Note No SBT indicated due to PT vent dependent. Normal [facility] Progress Note Normal [facility] Progress Note Normal [facility] Progress Note Normal [facility] Progress Note Normal [facility] Progress Note [facility] [id number] 06-19-2025 [id number] Normal [facility] CBC W Auto Differential pane l (Bld)on 06-19-2025 Basophils (Bld) [#/Vol] 0.1 10*3/uL 0.0 - 0.2 10*3/uL [facility] Basophils/100 WBC (Bld) 0.9 % 0.0 - 2.0 % [facility] Eosinophils (Bld) [#/Vol] 0.2 10*3/uL 0.0 - 0.5 10*3/uL [facility] Eosinophils/100 WBC (Bld) 2.2 % 0.0 - 6.0 % [facility] Erythrocyte distribution width (RBC) [Ratio] 18.2 % High 11.5 - 15.0 % [facility] Hematocrit (Bld) [Volume fraction] 25 % Low 35.0 - 47.0 % [facility] Hemoglobin (Bld) [Mass/Vol] 7.8 g/dL Low 11.7 - 16.0 g/dL [facility] Immature granulocytes (Bld) [#/Vol] 0 10*3/uL NINF - 0.1 10*3/uL [facility] Immature granulocytes/100 WBC (Bld) 0.3 % 0.0 - 2.0 % [facility] Interpretation and review of laboratory results Abnormal [facility] Lymphocytes (Bld) [#/Vol] 1 10*3/uL 1.0 - 4.3 10*3/uL [facility] Lymphocytes/100 WBC (Bld) 13.6 % Low 15.0 - 45.0 % [facility] MCH (RBC) [Entitic mass] 26.8 pg 26.0 - 34.0 pg [facility] MCHC (RBC) [Mass/Vol] 31.2 % 30.5 - 36.0 % [facility] MCV (RBC) [Entitic vol] 85.9 fL 77.0 - 99.0 fL [facility] Monocytes (Bld) [#/Vol] 0.8 10*3/uL 0.0 - 0.9 10*3/uL [facility] Monocytes/100 WBC (Bld) 10.2 % 5.0 - 13.0 % [facility] Neutrophils (Bld) [#/Vol] 5.5 10*3/uL 1.8 - 7.5 10*3/uL [facility] Neutrophils/100 WBC (Bld) 72.8 % 38.0 - 82.0 % [facility] Nucleated RBC/100 WBC (Bld) [Ratio] 0 % [facility] Platelet mean volume (Bld) [Entitic vol] 9.9 fL 9.0 - 12.7 fL [facility] [facility] Plate[facility] (Bld) [#/Vol] 250 10*3/uL 140 - 440 10*3/uL [facility] RBC (Bld) [#/Vol] 2.91 10*6/uL Low 3.80 - 5.2 0 10*6/uL [facility] WBC (Bld) [#/Vol] 7.6 10*3/uL 3.6 - 10.7 10*3/uL [facility] CBC WITH AUTO DIFFERENTIALon 06-19-2025 Basophils (Bld) [#/Vol] 0.1 10*3/uL Normal 0.0-0.2 [facility] Comment on above: Performed By: #### L [id number] ####Graphic Coordinator: NATALIE GARCIA ([id number])[facility] (SBHLAB)[address] Basophils/100 WBC (Bld) 0.9 % Normal 0.0-2.0 [facility] Comment on above: Performed By: #### L [id number] ####Graphic Coordinator: NATALIE GARCIA ([id number])[facility] [place] (SBHLAB)[address] Eosinophils (Bld) [#/Vol] 0.2 10*3/uL Normal 0.0-0.5 [facility] Comment on above: Performed By: #### L [id number] ####Graphic Coordinator: NATALIE GARCIA ([id number])[facility] [place] (SB[facility])[address] Eosinophils/100 WBC (Bld) 2.2 % Normal 0.0-6.0 [facility] Comment on above: Performed By: #### L [id number] ####Graphic Coordinator: NATALIE GARCIA ([id number])[facility] [place] (SBHLAB)[address] Erythrocyte distribution width (RBC) [Ratio] 18.2 % High 11.5-15.0 [facility] Comment on above: Performed By: #### L [id number] ####Graphic Coordinator: NATALIE GARCIA ([id number])[facility] [place] (SBHLAB)[address] Hematocrit (Bld) [Volume fraction] 25.0 % Low 35.0-47.0 [facility] Comment on above: Performed By: #### L [id number] ####Graphic Coordinator: NATALIE GARCIA ([id number])[facility] [place] (SBHLAB)[address] Hemoglobin (Bld) [Mass/Vol] 7.8 g/dL Low 11.7-16.0 [facility] Comment on above: Performed By: #### L [id number] ####Graphic Coordinator: NATALIE GARCIA ([id number])[facility] [place] (SBHLAB)[address] IMMATURE GRANS % 0.3 % Normal 0.0-2.0 [facility] Comment on above: Performed By: #### L [id number] ####Graphic Coordinator: NATALIE GARCIA ([id number])[facility] [place] (SB[facility]AB)[address] IMMATURE GRANS ABSOLUTE 0.0 10*3/uL Normal <0.1 [facility] Comment on above: Performed By: #### L [id number] ####Graphic Coordinator: NATALIE GARCIA ([id number])[facility] [place] (SB[facility])[address] Lymphocytes (Bld) [#/Vol] 1.0 10*3/uL Normal 1.0-4.3 [facility] Comment on above: Performed By: #### L [id number] ####Graphic Coordinator: NATALIE GARCIA ([id number])[facility] [place] (SB[facility])[address] Lymphocytes/100 WBC (Bld) 13.6 % Low 15.0-45.0 [facility] Comment on above: Performed By: #### L [id number] ####Graphic Coordinator: NATALIE GARCIA ([id number])[facility] [place] (SB[facility])[address] MCH (RBC) [Entitic mass] 26.8 pg Normal 26.0-34.0 [facility] Comment on above: Performed By: #### L [id number] ####Graphic Coordinator: NATALIE GARCIA ([id number])[facility] [place] (SB[facility])[address] MCHC 31.2 % Normal 30.5-36.0 [facility] Comment on above: Performed By: #### L [id number] ####Graphic Coordinator: NATALIE GARCIA ([id number])[facility] [place] (SBHLAB)[address] MCV (RBC) [Entitic vol] 85.9 fL Normal 77.0-99.0 [facility] Comment on above: Performed By: #### L [id number] ####Graphic Coordinator: NATALIE GARCIA ([id number])[facility] [place] (SBHLAB)[address] Monocytes (Bld) [#/Vol] 0.8 10*3/uL Normal 0.0-0.9 [facility] Comment on above: Performed By: #### L [id number] ####Graphic Coordinator: NATALIE GARCIA ([id number])[facility] [place] (SB[facility])[address] Monocytes/100 WBC (Bld) 10.2 % Normal 5.0-13.0 [facility] Comment on above: Performed By: #### L [id number] ####Graphic Coordinator: NATALIE GARCIA ([id number])[facility] [place] (SB[facility])[address] NEUTROPHILS ABSOLUTE 5.5 10*3/uL Normal 1.8-7.5 [facility] Comment on above: Performed By: #### L [id number] ####Graphic Coordinator: NATALIE GARCIA ([id number])[facility] [place] (SB[facility])[address] Neutrophils/100 WBC (Bld) 72.8 % Normal 38.0-82.0 [facility] Comment on above: Performed By: #### L [id number] ####Graphic Coordinator: NATALIE GARCIA ([id number])[facility] [place] (SBHLAB)155 [place] [address] [place] NRBC 0.0 /100 WBCs Normal 0.0-2.0 [facility] Comment on above: Performed By: #### L [id number] ####Graphic Coordinator: NATALIE GARCIA ([id number])[facility] [place] (SB[facility])[address] Platelet mean volume (Bld) [Entitic vol] 9.9 fL Normal 9.0-12.7 [facility] Comment on above: Performed By: #### L [id number] ####Graphic Coordinator: NATALIE GARCIA ([id number])[facility] [place] (SBHLAB)[address] Platelets (Bld) [#/Vol] 250 10*3/uL Normal 140-440 [facility] Comment on above: Performed By: #### L [id number] ####Graphic Coordinator: NATALIE GARCIA ([id number])[facility]ITAL[facility] [place] (SBHLAB)[address] RBC (Bld) [#/Vol] 2.91 10*6/uL Low 3.80-5.20 [facility] Comment on above: Performed By: #### L [id number] ####Graphic Coordinator: NATALIE GARCIA ([id number])[facility] [place] (SBHLAB)[address] WBC (Bld) [#/Vol] 7.6 10*3/uL Normal 3.6-10.7 [facility] Comment on above: Performed By: #### L [id number] ####Graphic Coordinator: NATALIE GARCIA ([id number])[facility] [place]OLa[place] (SBHLAB)[address] COMPREHENSIVE METABOLIC PANE Florentin 06-19-2025 Albumin [Mass/Vol] 2.5 g/dL Low 3.4-4.8 [facility] Comment on above: Performed By: #### L [id number] ####Graphic Coordinator: NATALIE GARCIA ([id number])[facility] [place] (SBHLAB)[address] ALP [Catalytic activity/Vol] 129 U/L Normal 40-150 [facility] Comment on above: Performed By: #### L [id number] ####Graphic Coordinator: NATALIE GARCIA ([id number])[facility] [place] (SBHLAB)155 [place] [address] [place] ALT [Catalytic activity/Vol] 10 U/L Normal <30 [facility] Comment on above: Performed By: #### L [id number] ####Graphic Coordinator: NATALIE GARCIA ([id number])[facility] [place] (SB[facility])[address] Anion gap [Moles/Vol] 9 mmol/L Normal 3-13 [facility] Comment on above: Performed By: #### L [id number] ####Graphic Coordinator: NATALIE GARCIA ([id number])[facility] [place] (SB[facility])[address] AST [Catalytic activity/Vol] 24 U/L Normal <34 [facility] Comment on above: Performed By: #### L [id number] ####Graphic Coordinator: NATALIE GARCIA ([id number])[facility] [place] (SB[facility])[address] Bilirubin [Mass/Vol] 0.7 mg/dL Normal <1.2 [facility] Comment on above: Performed By: #### L [id number] ####Graphic Coordinator: NATALIE GARCIA ([id number])[facility] [place] (SB[facility])[address] Calcium [Mass/Vol] 9.1 mg/dL Normal 8.8-10.0 [facility] Comment on above: Performed By: #### L [id number] ####Graphic Coordinator: NATALIE GARCIA ([id number])[facility] [place] (SB[facility]AB)155 [place] [address] [place] Chloride [Moles/Vol] 99 mmol/L Normal 98-107 [facility] Comment on above: Performed By: #### L [id number] ####Graphic Coordinator: NATALIE GARCIA ([id number])[facility] [place] (SB[facility])155 [place] [address] [place] CO2 [Moles/Vol] 27 mmol/L Normal 23-31 [facility] Comment on above: Performed By: #### L [id number] ####Graphic Coordinator: NATALIE GARCIA ([id number])[facility] (SBHLAB)[address] Creatinine [Mass/Vol] 2.33 mg/dL High 0.57-1.11 [facility] Comment on above: Performed By: #### L [id number] ####Graphic Coordinator: NATALIE GARCIA ([id number])[facility] ([facility] GLOMERULAR FILTRATION RATE ML/MIN/1.73 SQ M.PREDICTED 21.1 mL/min/1.73m*2 Low >60.0 [facility] Comment on above: Result Comment: Calc ulation based on the Chronic Kidney Disease Epidemiology Collaboration (CKD-EPI) equation refit without adjustment for race Performed By: #### L [id number] ####Graphic Coordinator: NATALIE GARCIA ([id number])[facility] ([facility])[address] [place] [address] Glucose [Mass/Vol] 126 mg/dL High 82-115 [facility] Comment on above: Performed By: #### L [id number] ####Graphic Coordinator: NATALIE GARCIA ([id number])[facility] ([facility])[address] [place] [address] Potassium [Moles/Vol] 4.0 mmol/L Normal 3.5-5.1 [facility] Comment on above: Result Comment: [facility] potassium values may be up to 0.5 mmol/L lower than serum values. Performed By: #### L [id number] ####Graphic Coordinator: NATALIE GARCIA ([id number])[facility] ([facility])[address] Protein [Mass/Vol] 6.8 g/dL Normal 6.4-8.3 [facility] Comment on above: Performed By: #### L [id number] ####Graphic Coordinator: NATALIE GARCIA ([id number])[facility]ITAL[facility] [place] (SBHLAB)[address] Sodium [Moles/Vol] 135 mmol/L Low 136-145 [facility] Comment on above: Performed By: #### L [id number] ####Graphic Coordinator: NATALIE GARCIA ([id number])[facility] [place] (SBHLAB)[address] Urea nitrogen [Mass/Vol] 23 mg/dL Normal 06-19 [facility] Comment on above: Performed By: #### L [id number] ####Graphic Coordinator: NATALIE GARCIA ([id number])[facility] [place] (SBHLAB)[address] Comprehensive metabolic 1998 panelon 06-19-2025 Albumin [Mass/Vol] 2.5 g/dL Low 3.4 - 4.8 g/dL [facility] ALP [Catalytic activity/Vol] 129 U/L 40 - 150 U/L [facility] ALT [Catalytic activity/Vol] 10 U/L NINF - 30 U/L [facility] Anion gap [Moles/Vol] 9 mmol/L 3 - 13 mmol/L [facility] AST [Catalytic activity/Vol] 24 U/L NINF - 34 U/L [facility] Bilirubin [Mass/Vol] 0.7 mg/dL [facility] mg/dL [facility] Calcium [Mass/Vol] 9.1 mg/dL 8.8 - 10. 0 mg/dL [facility] Chloride [Moles/Vol] 99 mmol/L 98 - 10 7 mmol/L [facility] CO2 [Moles/Vol] 27 mmol/L 23 - 31 mmol/L [facility] Creatinine [Mass/Vol] 2.33 mg/dL High 0.57 - 1.11 mg/dL [facility] GFR/1.73 sq M.predicted (S/P/Bld) [Vol rate/Area] 21.1 mL/min Low - PINF [facility] Glucose [Mass/Vol] 126 mg/dL High 82 - 115 mg/dL [facility] Interpretation and review of laboratory results Abnormal [facility] Potassium [Moles/Vol] 4 mmol/L 3.5 - 5.1 mmol/L [facility] Protein [Mass/Vol] 6.8 g/dL 6.4 - 8.3 g/dL [facility] Sodium [Moles/Vol] 135 mmol/L Low 136 - 145 mmol/L [facility] Urea nitrogen [Mass/Vol] 23 mg/dL 9 - 23 mg/dL [facility] Laboratory - Chemistry and C hemistry - challengeon 06-19-2025 Glucose [Mass/Vol] 142 mg/dL High 70 - 100 mg/dL [facility] Glucose [Mass/Vol] 126 mg/dL High 70 - 100 mg/dL [facility] Glucose [Mass/Vol] 146 mg/dL High 70 - 100 mg/dL [facility] Glucose [Mass/Vol] 132 mg/dL High 70 - 100 mg/dL [facility] Glucose [Mass/Vol] 125 mg/dL High 70 - 100 mg/dL [facility] No Panel Informationon 06-19 Interpretation and review of laboratory results Abnormal [facility] Interpretation and review of laboratory results Abnormal [facility] Interpretation and review of laboratory results Abnormal [facility] Interpretation and review of laboratory results Abnormal [facility] Interpretation and review of laboratory results Abnormal [facility] Progress Noteon 06-19-2025 Progress Note Normal [facility] Progress Note Normal [facility] Progress Note Normal [facility] Progress Note Normal [facility] Progress Note Normal [facility] Progress Note Normal [facility] [id number] 06-18-2025 [id number] Normal [facility] CBC W Auto Differential pane l (Bld)on 06-18-2025 Basophils (Bld) [#/Vol] 0.1 10*3/uL 0.0 - 0.2 10*3/uL [facility] Basophils/100 WBC (Bld) 1 % 0.0 - 2.0 % [facility] Eosinophils (Bld) [#/Vol] 0.2 10*3/uL 0.0 - 0.5 10*3/uL [facility] Eosinophils/100 WBC (Bld) 3.5 % 0.0 - 6.0 % [facility] Erythrocyte distribution width (RBC) [Ratio] 18.2 % High 11.5 - 15.0 % [facility] Hematocrit (Bld) [Volume fraction] 24.4 % Low 35.0 - 47.0 % [facility] Hemoglobin (Bld) [Mass/Vol] 7.6 g/dL Low 11.7 - 16.0 g/dL [facility] Immature granulocytes (Bld) [#/Vol] 0 10*3/uL NINF - 0.1 10*3/uL [facility] Immature granulocytes/100 WBC (Bld) 0.3 % 0.0 - 2.0 % [facility] Interpretation and review of laboratory results Abnormal [facility] Lymphocytes (Bld) [#/Vol] 0.9 10*3/uL Low 1.0 - 4.3 10*3/uL [facility] Lymphocytes/100 WBC (Bld) 14.9 % Low 15.0 - 45.0 % [facility] MCH (RBC) [Entitic mass] 26.7 pg 26.0 - 34.0 pg [facility] MCHC (RBC) [Mass/Vol] 31.1 % 30.5 - 36.0 % [facility] MCV (RBC) [Entitic vol] 85.6 fL 77.0 - 99.0 fL [facility] Monocytes (Bld) [#/Vol] 0.6 10*3/uL 0.0 - 0.9 10*3/uL [facility] Monocytes/100 WBC (Bld) 9.9 % 5.0 - 13.0 % [facility] Neutrophils (Bld) [#/Vol] 4.4 10*3/uL 1.8 - 7.5 10*3/uL [facility] Neutrophils/100 WBC (Bld) 70.4 % 38.0 - 82.0 % [facility] Nucleated RBC/100 WBC (Bld) [Ratio] 0 % [facility] Platelet mean volume (Bld) [Entitic vol] 10.4 fL 9.0 - 12.7 fL [facility] Platelets (Bld) [#/Vol] 237 10*3/uL 140 - 440 10*3/uL [facility] RBC (Bld) [#/Vol] 2.85 10*6/uL Low 3.80 - 5.2 0 10*6/uL [facility] WBC (Bld) [#/Vol] 6.3 10*3/uL 3.6 - 10.7 10*3/uL [facility] CBC WITH AUTO DIFFERENTIALon 06-18-2025 Basophils (Bld) [#/Vol] 0.1 10*3/uL Normal 0.0-0.2 [facility] Comment on above: Performed By: #### L [id number] ####Graphic Coordinator: NATALIE GARCIA ([id number])[facility] [place] (SB[facility])[address] Basophils/100 WBC (Bld) 1.0 % Normal 0.0-2.0 [facility] Comment on above: Performed By: #### L [id number] ####Graphic Coordinator: NATALIE GARCIA ([id number])[facility] (SBAB)[address] [place] [address] Eosinophils (Bld) [#/Vol] 0.2 10*3/uL Normal 0.0-0.5 [facility] Comment on above: Performed By: #### L [id number] ####Graphic Coordinator: NATALIE GARCIA ([id number])[facility] (SBAB)[address] [place] [address] Eosinophils/100 WBC (Bld) 3.5 % Normal 0.0-6.0 [facility] Comment on above: Performed By: #### L [id number] ####Graphic Coordinator: NATALIE GARCIA ([id number])[facility] (SBHLAB)[address] [place] [address] Erythrocyte distribution width (RBC) [Ratio] 18.2 % High 11.5-15.0 [facility] Comment on above: Performed By: #### L [id number] ####Graphic Coordinator: NATALIE GARCIA ([id number])[facility] (SBAB)[address] [place] [address] Hematocrit (Bld) [Volume fraction] 24.4 % Low 35.0-47.0 [facility] Comment on above: Performed By: #### L [id number] ####Graphic Coordinator: NATALIE GARCIA ([id number])[facility] [place] (SB[facility])[address] Hemoglobin (Bld) [Mass/Vol] 7.6 g/dL Low 11.7-16.0 [facility] Comment on above: Performed By: #### L [id number] ####Graphic Coordinator: NATALIE GARCIA ([id number])[facility] (SBHLAB)[address] IMMATURE GRANS % 0.3 % Normal 0.0-2.0 [facility] Comment on above: Performed By: #### L [id number] ####Graphic Coordinator: NATALIE GARCIA ([id number])[facility] (SBAB)[address] IMMATURE GRANS ABSOLUTE 0.0 10*3/uL Normal <0.1 [facility] Comment on above: Performed By: #### L [id number] ####Graphic Coordinator: NATALIE GARCIA ([id number])[facility] (SBAB)[address] Lymphocytes (Bld) [#/Vol] 0.9 10*3/uL Low 1.0-4.3 [facility] Comment on above: Performed By: #### L [id number] ####Graphic Coordinator: NATALIE GARCIA ([id number])[facility] (SBHLAB)[address] Lymphocytes/100 WBC (Bld) 14.9 % Low 15.0-45.0 [facility] Comment on above: Performed By: #### L [id number] ####Graphic Coordinator: NATALIE GARCIA ([id number])[facility] (SBAB)[address] MCH (RBC) [Entitic mass] 26.7 pg Normal 26.0-34.0 [facility] Comment on above: Performed By: #### L [id number] ####Graphic Coordinator: NATALIE DENISETRICIA ([id number])[facility] [place] (SBHLAB)[address] MCHC 31.1 % Normal 30.5-36.0 [facility] Comment on above: Performed By: #### L [id number] ####Graphic Coordinator: NATALIE SIMONDANIEL ([id number])[facility] [place] (SBHLAB)[address] MCV (RBC) [Entitic vol] 85.6 fL Normal 77.0-99.0 [facility] Comment on above: Performed By: #### L [id number] ####Graphic Coordinator: NATALIE SIMONDANIEL ([id number])[facility] [place] (SBHLAB)[address] [place] [address] Monocytes (Bld) [#/Vol] 0.6 10*3/uL Normal 0.0-0.9 [facility] Comment on above: Performed By: #### L [id number] ####Graphic Coordinator: NATALIE DENISETRICIA ([id number])[facility] [place] (SB[facility])[address] Monocytes/100 WBC (Bld) 9.9 % Normal 5.0-13.0 [facility] Comment on above: Performed By: #### L [id number] ####Graphic Coordinator: NATALIE GARCIA ([id number])[facility] [place] (SBHLAB)[address] NEUTROPHILS ABSOLUTE 4.4 10*3/uL Normal 1.8-7.5 [facility] Comment on above: Performed By: #### L [id number] ####Graphic Coordinator: NATALIE DENISETRICIA ([id number])[facility] [place] (SB[facility]AB)[address] Neutrophils/100 WBC (Bld) 70.4 % Normal 38.0-82.0 [facility] Comment on above: Performed By: #### L [id number] ####Graphic Coordinator: NATALIE DENISETRICIA ([id number])[facility]ITAL[facility] (SBHLAB)[address] NRBC 0.0 /100 WBCs Normal 0.0-2.0 [facility] Comment on above: Performed By: #### L [id number] ####Graphic Coordinator: NATALIE OJSE ([id number])[facility] (SBHLAB)[address] Platelet mean volume (Bld) [Entitic vol] 10.4 fL Normal 9.0-12.7 [facility] Comment on above: Performed By: #### L [id number] ####Graphic Coordinator: NATALIE SIMONDANIEL ([id number])[facility] (SBHLAB)[address] Platelets (Bld) [#/Vol] 237 10*3/uL Normal 140-440 [facility] Comment on above: Performed By: #### L [id number] ####Graphic Coordinator: NATALIE SIMONDANIEL ([id number])[facility]ITAL[facility] (SBHLAB)[address] RBC (Bld) [#/Vol] 2.85 10*6/uL Low 3.80-5.20 [facility] Comment on above: Performed By: #### L [id number] ####Graphic Coordinator: NATALIE GARCIA ([id number])[facility] (SBHLAB)[address] WBC (Bld) [#/Vol] 6.3 10*3/uL Normal 3.6-10.7 [facility] Comment on above: Performed By: #### L [id number] ####Graphic Coordinator: NATALIE GARCIA ([id number])[facility]ALL[facility] (SBHLAB)[address] COMPREHENSIVE METABOLIC PANE Florentin 06-18-2025 Albumin [Mass/Vol] 2.1 g/dL Low 3.4-4.8 [facility] Comment on above: Performed By: #### L [id number] ####Graphic Coordinator: NATALIE GARCIA ([id number])[facility] [place] (SBHLAB)[address] ALP [Catalytic activity/Vol] 122 U/L Normal 40-150 [facility] Comment on above: Performed By: #### L [id number] ####Graphic Coordinator: NATALIE GARCIA ([id number])[facility] [place] (SB[facility])[address] ALT [Catalytic activity/Vol] 13 U/L Normal <30 [facility] Comment on above: Performed By: #### L [id number] ####Graphic Coordinator: NATALIE GARCIA ([id number])[facility] [place] (SB[facility])[address] Anion gap [Moles/Vol] 11 mmol/L Normal 3-13 [facility] Comment on above: Performed By: #### L [id number] ####Graphic Coordinator: NATALIE GARCIA ([id number])[facility]A [facility] (SBHLAB)[address] AST [Catalytic activity/Vol] 24 U/L Normal <34 [facility] Comment on above: Performed By: #### L [id number] ####Graphic Coordinator: NATALIE GARCIA ([id number])[facility] [place] (SBHLAB)[address] Bilirubin [Mass/Vol] 0.6 mg/dL Normal <1.2 [facility] Comment on above: Performed By: #### L [id number] ####Graphic Coordinator: NATALIE GARCIA ([id number])[facility] [place] (SBHLAB)[address] Calcium [Mass/Vol] 8.9 mg/dL Normal 8.8-10.0 [facility] Comment on above: Performed By: #### L [id number] ####Graphic Coordinator: NATALIE GARCIA ([id number])[facility] [place] (SBHLAB)[address] Chloride [Moles/Vol] 98 mmol/L Normal 98-107 [facility] Comment on above: Performed By: #### L [id number] ####Graphic Coordinator: NATALIE GARCIA ([id number])[facility]ITAL[facility] (SBHLAB)[address] CO2 [Moles/Vol] 24 mmol/L Normal 23-31 [facility] Comment on above: Performed By: #### L [id number] ####Graphic Coordinator: NATALIE GARCIA ([id number])[facility] (SBHLAB)[address] Creatinine [Mass/Vol] 3.41 mg/dL High 0.57-1.11 [facility] Comment on above: Performed By: #### L AB17 ####Graphic Coordinator: NATALIE GARCIA ([id number])[facility] (SBHLAB)[address] GLOMERULAR FILTRATION RATE ML/MIN/1.73 SQ M.PREDICTED 13.3 mL/min/1.73m*2 Low >60.0 [facility] Comment on above: Result Comment: Calc ulation based on the Chronic Kidney Disease Epidemiology Collaboration (CKD-EPI) equation refit without adjustment for race Performed By: #### L AB17 ####Graphic Coordinator: NATALIE GARCIA ([id number])[facility] (SBHLAB)[address] Glucose [Mass/Vol] 119 mg/dL High 82-115 [facility] Comment on above: Performed By: #### L [id number] ####Graphic Coordinator: NATALIE GARCIA ([id number])[facility] (SBHLAB)[address] Potassium [Moles/Vol] 4.4 mmol/L Normal 3.5-5.1 [facility] Comment on above: Result Comment: [facility] potassium values may be up to 0.5 mmol/L lower than serum values. Performed By: #### L [id number] ####Graphic Coordinator: NATALIE JOSE ([id number])[facility] (SBHLAB)[address] Protein [Mass/Vol] 6.2 g/dL Low 6.4-8.3 [facility] Comment on above: Performed By: #### L [id number] ####Graphic Coordinator: NATALIE SIMONDNAIEL ([id number])[facility] (SBHLAB)[address] Sodium [Moles/Vol] 133 mmol/L Low 136-145 [facility] Comment on above: Performed By: #### L [id number] ####Graphic Coordinator: NATALIE SIMONDANIEL ([phone])[facility] [place] (SBHLAB)[address] Urea nitrogen [Mass/Vol] 46 mg/dL High 9-23 [facility] Comment on above: Performed By: #### L [id number] ####Graphic Coordinator: NATALIE JOSE ([phone])[facility]ITAL[facility] (SBHLAB)[address] Comprehensive metabolic 1998 panelon 06-18-2025 Albumin [Mass/Vol] 2.1 g/dL Low 3.4 - 4.8 g/dL [facility] ALP [Catalytic activity/Vol] 122 U/L 40 - 150 U/L [facility] ALT [Catalytic activity/Vol] 13 U/L NINF - 30 U/L [facility] Anion gap [Moles/Vol] 11 mmol/L 3 - 13 mmol/L [facility] AST [Catalytic activity/Vol] 24 U/L NINF - 34 U/L [facility] Bilirubin [Mass/Vol] 0.6 mg/dL NINF - 1.2 mg/dL [facility] Calcium [Mass/Vol] 8.9 mg/dL 8.8 - 10. 0 mg/dL [facility] Chloride [Moles/Vol] 98 mmol/L 98 - 10 7 mmol/L [facility] CO2 [Moles/Vol] 24 mmol/L 23 - 31 mmol/L [facility] Creatinine [Mass/Vol] 3.41 mg/dL High 0.57 - 1.11 mg/dL [facility] GFR/1.73 sq M.predicted (S/P/Bld) [Vol rate/Area] 13.3 mL/min Low - PINF [facility] Glucose [Mass/Vol] 119 mg/dL High 82 - 115 mg/dL [facility] Interpretation and review of laboratory results Abnormal [facility] Potassium [Moles/Vol] 4.4 mmol/L 3.5 - 5.1 mmol/L [facility] Protein [Mass/Vol] 6.2 g/dL Low 6.4 - 8.3 g/dL [facility] Sodium [Moles/Vol] 133 mmol/L Low 136 - 145 mmol/L [facility] Urea nitrogen [Mass/Vol] 46 mg/dL High 9 - 23 mg/dL [facility] Laboratory - Chemistry and C hemistry - challengeon 06-18-2025 Glucose [Mass/Vol] 101 mg/dL High 70 - 100 mg/dL [facility] Glucose [Mass/Vol] 98 mg/dL 70 - 100 mg/dL [facility] Glucose [Mass/Vol] 123 mg/dL High 70 - 100 mg/dL [facility] No Panel Informationon 06-18 Interpretation and review of laboratory results Abnormal [facility] Interpretation and review of laboratory results Normal [facility] Interpretation and review of laboratory results Abnormal [facility] Nursing Noteon 06-18-2025 Nursing Note Normal [facility] Progress Noteon 06-18-2025 Progress Note Normal [facility] Progress Note Normal [facility] Progress Note Normal [facility] Progress Note Normal [facility] Progress Note Normal [facility] CBC W Auto Differential pane l (Bld)on 06-17-2025 Basophils (Bld) [#/Vol] 0.1 10*3/uL 0.0 - 0.2 10*3/uL [facility] Basophils/100 WBC (Bld) 0.8 % 0.0 - 2.0 % [facility] Eosinophils (Bld) [#/Vol] 0.2 10*3/uL 0.0 - 0.5 10*3/uL [facility] Eosinophils/100 WBC (Bld) 1.9 % 0.0 - 6.0 % [facility] Erythrocyte distribution width (RBC) [Ratio] 17.8 % High 11.5 - 15.0 % [facility] Hematocrit (Bld) [Volume fraction] 26.6 % Low 35.0 - 47.0 % [facility] Hemoglobin (Bld) [Mass/Vol] 8.4 g/dL Low 11.7 - 16.0 g/dL [facility] Immature granulocytes (Bld) [#/Vol] 0 10*3/uL NINF - 0.1 10*3/uL [facility] Immature granulocytes/100 WBC (Bld) 0.4 % 0.0 - 2.0 % [facility] Interpretation and review of laboratory results Abnormal [facility] Lymphocytes (Bld) [#/Vol] 1.2 10*3/uL 1.0 - 4.3 10*3/uL [facility] Lymphocytes/100 WBC (Bld) 15.9 % 15.0 - 45.0 % [facility] MCH (RBC) [Entitic mass] 26.7 pg 26.0 - 34.0 pg [facility] MCHC (RBC) [Mass/Vol] 31.6 % 30.5 - 36.0 % [facility] MCV (RBC) [Entitic vol] 84.4 fL 77.0 - 99.0 fL [facility] Monocytes (Bld) [#/Vol] 0.8 10*3/uL 0.0 - 0.9 10*3/uL [facility] Monocytes/100 WBC (Bld) 9.6 % 5.0 - 13.0 % [facility] Neutrophils (Bld) [#/Vol] 5.6 10*3/uL 1.8 - 7.5 10*3/uL [facility] Neutrophils/100 WBC (Bld) 71.4 % 38.0 - 82.0 % [facility] Nucleated RBC/100 WBC (Bld) [Ratio] 0 % [facility] Platelet mean volume (Bld) [Entitic vol] 9.6 fL 9.0 - 12.7 fL [facility] Platelets (Bld) [#/Vol] 230 10*3/uL 140 - 440 10*3/uL [facility] RBC (Bld) [#/Vol] 3.15 10*6/uL Low 3.80 - 5.2 0 10*6/uL [facility] WBC (Bld) [#/Vol] 7.8 10*3/uL 3.6 - 10.7 10*3/uL [facility] CBC WITH AUTO DIFFERENTIALon 06-17-2025 Basophils (Bld) [#/Vol] 0.1 10*3/uL Normal 0.0-0.2 [facility] Comment on above: Performed By: #### L [id number] ####Graphic Coordinator: NATALIE GARCIA ([id number])[facility] [place] (SBHLAB)[address] Basophils/100 WBC (Bld) 0.8 % Normal 0.0-2.0 [facility] Comment on above: Performed By: #### L [id number] ####Graphic Coordinator: NATALIE GARCIA ([id number])[facility] [place] (SBHLAB)[address] Eosinophils (Bld) [#/Vol] 0.2 10*3/uL Normal 0.0-0.5 [facility] Comment on above: Performed By: #### L [id number] ####Graphic Coordinator: NATALIE GARCIA ([id number])[facility] [place] (SBHLAB)[address] Eosinophils/100 WBC (Bld) 1.9 % Normal 0.0-6.0 [facility] Comment on above: Performed By: #### L [id number] ####Graphic Coordinator: NATALIE GARCIA ([id number])[facility] [place] (SBHLAB)[address] Erythrocyte distribution width (RBC) [Ratio] 17.8 % High 11.5-15.0 [facility] Comment on above: Performed By: #### L [id number] ####Graphic Coordinator: NATALIE GARCIA ([id number])[facility] [place] (SBHLAB)[address] Hematocrit (Bld) [Volume fraction] 26.6 % Low 35.0-47.0 [facility] Comment on above: Performed By: #### L [id number] ####Graphic Coordinator: NATALIE SIMONErlindaTRICIA ([id number])[facility] ([facility] [place] [address] Hemoglobin (Bld) [Mass/Vol] 8.4 g/dL Low 11.7-16.0 [facility] Comment on above: Performed By: #### L [id number] ####Graphic Coordinator: NATALIE JOSE ([id number])[facility] ([facility])[address] [place] [address] IMMATURE GRANS % 0.4 % Normal 0.0-2.0 [facility] Comment on above: Performed By: #### L [id number] ####Graphic Coordinator: NATALIE SIMONDANIEL ([id number])[facility] ([facility])[address] [place] [address] IMMATURE GRANS ABSOLUTE 0.0 10*3/uL Normal <0.1 [facility] Comment on above: Performed By: #### L [id number] ####Graphic Coordinator: NATALIE SIMONDANIEL ([id number])[facility] ([facility])[address] [place] [address] Lymphocytes (Bld) [#/Vol] 1.2 10*3/uL Normal 1.0-4.3 [facility] Comment on above: Performed By: #### L [id number] ####Graphic Coordinator: NATALIE SIMONDANIEL ([id number])[facility] ([facility])[address] [place] [address] Lymphocytes/100 WBC (Bld) 15.9 % Normal 15.0-45.0 [facility] Comment on above: Performed By: #### L [id number] ####Graphic Coordinator: NATALIE DENISETRICIA ([id number])[facility] ([facility])[address] [place] [address] MCH (RBC) [Entitic mass] 26.7 pg Normal 26.0-34.0 [facility] Comment on above: Performed By: #### L [id number] ####Graphic Coordinator: NATALIE DENISETRICIA ([id number])[facility] [place] (SBHLAB)[address] MCHC 31.6 % Normal 30.5-36.0 [facility] Comment on above: Performed By: #### L [id number] ####Graphic Coordinator: NATALIE DENISETRICIA ([id number])[facility] [place] (SBHLAB)[address] MCV (RBC) [Entitic vol] 84.4 fL Normal 77.0-99.0 [facility] Comment on above: Performed By: #### L [id number] ####Graphic Coordinator: NATALIE ISMONDANIEL ([id number])[facility] [place] (SBHLAB)[address] Monocytes (Bld) [#/Vol] 0.8 10*3/uL Normal 0.0-0.9 [facility] Comment on above: Performed By: #### L [id number] ####Graphic Coordinator: NATALIE DENISETRICIA ([id number])[facility] [place] (SBHLAB)[address] Monocytes/100 WBC (Bld) 9.6 % Normal 5.0-13.0 [facility] Comment on above: Performed By: #### L [id number] ####Graphic Coordinator: NATALIE DENISETRICIA ([id number])[facility] [place] (SBHLAB)155 [place] [address] [place] NEUTROPHILS ABSOLUTE 5.6 10*3/uL Normal 1.8-7.5 [facility] Comment on above: Performed By: #### L [id number] ####Graphic Coordinator: NATALIE GARCIA ([id number])[facility] [place] (SBHLAB)155 [place] [address] [place] Neutrophils/100 WBC (Bld) 71.4 % Normal 38.0-82.0 [facility] Comment on above: Performed By: #### L [id number] ####Graphic Coordinator: NATALIE GARCIA ([id number])[facility] [place] (SBHLAB)[address] NRBC 0.0 /100 WBCs Normal 0.0-2.0 [facility] Comment on above: Performed By: #### L [id number] ####Graphic Coordinator: NATALIE GARCIA ([id number])[facility] [place] (SBHLAB)[address] Platelet mean volume (Bld) [Entitic vol] 9.6 fL Normal 9.0-12.7 [facility] Comment on above: Performed By: #### L [id number] ####Graphic Coordinator: NATALIE GARCIA ([id number])[facility] [place] (SBHLAB)[address] [place] [address] [place] Platelets (Bld) [#/Vol] 230 10*3/uL Normal 140-440 [facility] Comment on above: Performed By: #### L [id number] ####Graphic Coordinator: NATALIE GARCIA ([id number])[facility] [place] (SBHLAB)[address] RBC (Bld) [#/Vol] 3.15 10*6/uL Low 3.80-5.20 [facility] Comment on above: Performed By: #### L [id number] ####Graphic Coordinator: NATALIE GARCIA ([id number])[facility] [place] (SB[facility]AB)[address] WBC (Bld) [#/Vol] 7.8 10*3/uL Normal 3.6-10.7 [facility] Comment on above: Performed By: #### L [id number] ####Graphic Coordinator: NATALIE GARCIA ([id number])[facility] [place] (SB[facility]AB)[address] COMPREHENSIVE METABOLIC PANE Florentin 06-17-2025 Albumin [Mass/Vol] 2.3 g/dL Low 3.4-4.8 [facility] Comment on above: Performed By: #### L [id number] ####Graphic Coordinator: NATALIE GARCIA ([id number])[facility] [place] (SBHLAB)[address] ALP [Catalytic activity/Vol] 133 U/L Normal 40-150 [facility] Comment on above: Performed By: #### L [id number] ####Graphic Coordinator: NATALIE GARCIA ([id number])[facility] [place] (SB[facility])[address] ALT [Catalytic activity/Vol] 14 U/L Normal <30 [facility] Comment on above: Performed By: #### L [id number] ####Graphic Coordinator: NATALIE GARCIA ([id number])[facility] [place] (SB[facility]AB)[address] Anion gap [Moles/Vol] 12 mmol/L Normal 3-13 [facility] Comment on above: Performed By: #### L [id number] ####Graphic Coordinator: NATALIE GARCIA ([id number])[facility] [place] (SB[facility]AB)[address] AST [Catalytic activity/Vol] 28 U/L Normal <34 [facility] Comment on above: Performed By: #### L [id number] ####Graphic Coordinator: NATALIE GARCIA ([id number])[facility] [place] (SB[facility]AB)[address] Bilirubin [Mass/Vol] 0.7 mg/dL Normal <1.2 [facility] Comment on above: Performed By: #### L [id number] ####Graphic Coordinator: NATALIE GARCIA ([id number])[facility] [place] (SB[facility]AB)[address] Calcium [Mass/Vol] 9.3 mg/dL Normal 8.8-10.0 [facility] Comment on above: Performed By: #### L [id number] ####Graphic Coordinator: NATALIE GARCIA ([id number])[facility] [place] (SBHLAB)[address] Chloride [Moles/Vol] 99 mmol/L Normal 98-107 [facility] Comment on above: Performed By: #### L [id number] ####Graphic Coordinator: NATALIE GARCIA ([id number])[facility] [place] (SB[facility]AB)[address] CO2 [Moles/Vol] 24 mmol/L Normal 23-31 [facility] Comment on above: Performed By: #### L [id number] ####Graphic Coordinator: NATALIE DENISETRICIA ([id number])[facility] [place] (SB[facility]AB)[address] Creatinine [Mass/Vol] 2.72 mg/dL High 0.57-1.11 [facility] Comment on above: Performed By: #### L [id number] ####Graphic Coordinator: NATALIE DENISETRICIA ([id number])[facility] [place] (SB[facility])[address] GLOMERULAR FILTRATION RATE ML/MIN/1.73 SQ M.PREDICTED 17.5 mL/min/1.73m*2 Low >60.0 [facility] Comment on above: Result Comment: Calc ulation based on the Chronic Kidney Disease Epidemiology Collaboration (CKD-EPI) equation refit without adjustment for race Performed By: #### L [id number] ####Graphic Coordinator: NATALIE GARCIA ([id number])[facility] [place] (SBHLAB)[address] [place] [address] [place] Glucose [Mass/Vol] 62 mg/dL Low 82-115 [facility] Comment on above: Performed By: #### L [id number] ####Graphic Coordinator: NATALIE GARCIA ([id number])[facility] [place] (SBHLAB)155 [place] [address] [place] Potassium [Moles/Vol] 4.1 mmol/L Normal 3.5-5.1 [facility] Comment on above: Result Comment: [facility] potassium values may be up to 0.5 mmol/L lower than serum values. Performed By: #### L [id number] ####Graphic Coordinator: NATALIE GARCIA ([id number])[facility] [place] (SBHLAB)[address] Protein [Mass/Vol] 6.8 g/dL Normal 6.4-8.3 [facility] Comment on above: Performed By: #### L [id number] ####Graphic Coordinator: NATALIE GARCIA ([id number])[facility] (SBHLAB)[address] Sodium [Moles/Vol] 135 mmol/L Low 136-145 [facility] Comment on above: Performed By: #### L [id number] ####Graphic Coordinator: NATALIE GARCIA ([id number])[facility] (SBHLAB)[address] Urea nitrogen [Mass/Vol] 33 mg/dL High 9-23 [facility] Comment on above: Performed By: #### L [id number] ####Graphic Coordinator: NATALIE GARCIA ([id number])[facility] (SBHLAB)[address] Comprehensive metabolic 1998 panelon 06-17-2025 Albumin [Mass/Vol] 2.3 g/dL Low 3.4 - 4.8 g/dL [facility] ALP [Catalytic activity/Vol] 133 U/L 40 - 150 U/L [facility] ALT [Catalytic activity/Vol] 14 U/L NINF - 30 U/L [facility] Anion gap [Moles/Vol] 12 mmol/L 3 - 13 mmol/L [facility] AST [Catalytic activity/Vol] 28 U/L NINF - 34 U/L [facility] Bilirubin [Mass/Vol] 0.7 mg/dL NINF - 1.2 mg/dL [facility] Calcium [Mass/Vol] 9.3 mg/dL 8.8 - 10. 0 mg/dL [facility] Chloride [Moles/Vol] 99 mmol/L 98 - 10 7 mmol/L [facility] CO2 [Moles/Vol] 24 mmol/L 23 - 31 mmol/L [facility] Creatinine [Mass/Vol] 2.72 mg/dL High 0.57 - 1.11 mg/dL [facility] GFR/1.73 sq M.predicted (S/P/Bld) [Vol rate/Area] 17.5 mL/min Low - PINF [facility] Glucose [Mass/Vol] 62 mg/dL Low 82 - 115 mg/dL [facility] Interpretation and review of laboratory results Abnormal [facility] Potassium [Moles/Vol] 4.1 mmol/L 3.5 - 5.1 mmol/L [facility] Protein [Mass/Vol] 6.8 g/dL 6.4 - 8.3 g/dL [facility] Sodium [Moles/Vol] 135 mmol/L Low 136 - 145 mmol/L [facility] Urea nitrogen [Mass/Vol] 33 mg/dL High 9 - 23 mg/dL [facility] Laboratory - Chemistry and C hemistry - challengeon 06-17-2025 Glucose [Mass/Vol] 135 mg/dL High 70 - 100 mg/dL [facility] Glucose [Mass/Vol] 118 mg/dL High 70 - 100 mg/dL [facility] Glucose [Mass/Vol] 106 mg/dL High 70 - 100 mg/dL [facility] Glucose [Mass/Vol] 74 mg/dL 70 - 100 mg/dL [facility] No Panel Informationon 06-17 Interpretation and review of laboratory results Abnormal [facility] Interpretation and review of laboratory results Abnormal [facility] Interpretation and review of laboratory results Abnormal [facility] Interpretation and review of laboratory results Normal [facility] Progress Noteon 06-17-2025 Progress Note Normal [facility] Progress Note Normal [facility] Progress [facility] CBC W Auto Differential pane l (Bld)on 06-16-2025 Basophils (Bld) [#/Vol] 0 10*3/uL 0.0 - 0.2 10*3/uL [facility] Basophils/100 WBC (Bld) 0.6 % 0.0 - 2.0 % [facility] Eosinophils (Bld) [#/Vol] 0.2 10*3/uL 0.0 - 0.5 10*3/uL [facility] Eosinophils/100 WBC (Bld) 2.7 % 0.0 - 6.0 % [facility] Erythrocyte distribution width (RBC) [Ratio] 18.2 % High 11.5 - 15.0 % [facility] Hematocrit (Bld) [Volume fraction] 24.7 % Low 35.0 - 47.0 % [facility] Hemoglobin (Bld) [Mass/Vol] 7.6 g/dL Low 11.7 - 16.0 g/dL [facility] Immature granulocytes (Bld) [#/Vol] 0 10*3/uL NINF - 0.1 10*3/uL [facility] Immature granulocytes/100 WBC (Bld) 0.5 % 0.0 - 2.0 % [facility] Interpretation and review of laboratory results Abnormal [facility] Lymphocytes (Bld) [#/Vol] 1 10*3/uL 1.0 - 4.3 10*3/uL [facility] Lymphocytes/100 WBC (Bld) 16.5 % 15.0 - 45.0 % [facility] MCH (RBC) [Entitic mass] 26.5 pg 26.0 - 34.0 pg [facility] MCHC (RBC) [Mass/Vol] 30.8 % 30.5 - 36.0 % [facility] MCV (RBC) [Entitic vol] 86.1 fL 77.0 - 99.0 fL [facility] Monocytes (Bld) [#/Vol] 0.5 10*3/uL 0.0 - 0.9 10*3/uL [facility] Monocytes/100 WBC (Bld) 7.9 % 5.0 - 13.0 % [facility] Neutrophils (Bld) [#/Vol] 4.5 10*3/uL 1.8 - 7.5 10*3/uL [facility] Neutrophils/100 WBC (Bld) 71.8 % 38.0 - 82.0 % [facility] Nucleated RBC/100 WBC (Bld) [Ratio] 0 % [facility] Platelet mean volume (Bld) [Entitic vol] 9.9 fL 9.0 - 12.7 fL [facility] Platelets (Bld) [#/Vol] 217 10*3/uL 140 - 440 10*3/uL [facility] RBC (Bld) [#/Vol] 2.87 10*6/uL Low 3.80 - 5.2 0 10*6/uL [facility] WBC (Bld) [#/Vol] 6.2 10*3/uL 3.6 - 10.7 10*3/uL [facility] CBC WITH AUTO DIFFERENTIALon 06-16-2025 Basophils (Bld) [#/Vol] 0.0 10*3/uL Normal 0.0-0.2 [facility] Comment on above: Performed By: #### L [id number] ####Graphic Coordinator: NATALIE GARCIA ([id number])[facility] [place] (SBAB)[address] Basophils/100 WBC (Bld) 0.6 % Normal 0.0-2.0 S [facility] Comment on above: Performed By: #### L [id number] ####Graphic Coordinator: NATALIE GARCIA ([id number])[facility] [place] (SBHLAB)[address] [place] [address] [place] Eosinophils (Bld) [#/Vol] 0.2 10*3/uL Normal 0.0-0.5 [facility] Comment on above: Performed By: #### L [id number] ####Graphic Coordinator: NATALIE GARCIA ([id number])[facility] [place] (SBHLAB)[address] [place] [address] Eosinophils/100 WBC (Bld) 2.7 % Normal 0.0-6.0 [facility] Comment on above: Performed By: #### L [id number] ####Graphic Coordinator: NATALIE GARCIA ([id number])[facility] [place] (SBHLAB)[address] [place] [address] [place] Erythrocyte distribution width (RBC) [Ratio] 18.2 % High 11.5-15.0 [facility] Comment on above: Performed By: #### L [id number] ####Graphic Coordinator: NATALIE GARCIA ([id number])[facility] [place] (SBHLAB)[address] Hematocrit (Bld) [Volume fraction] 24.7 % Low 35.0-47.0 [facility] Comment on above: Performed By: #### L [id number] ####Graphic Coordinator: NATALIE DENISETRICIA ([id number])[facility] [place] (SBHLAB)[address] Hemoglobin (Bld) [Mass/Vol] 7.6 g/dL Low 11.7-16.0 [facility] Comment on above: Performed By: #### L [id number] ####Graphic Coordinator: NATALIE GARCIA ([id number])[facility] (SB[facility])[address] IMMATURE GRANS % 0.5 % Normal 0.0-2.0 [facility] Comment on above: Performed By: #### L [id number] ####Graphic Coordinator: NATALIE GARCIA ([id number])[facility] (SB[facility])[address] IMMATURE GRANS ABSOLUTE 0.0 10*3/uL Normal <0.1 [facility] Comment on above: Performed By: #### L [id number] ####Graphic Coordinator: NATALIE GARCIA ([id number])[facility] (SBHLAB)[address] [place] [address] Lymphocytes (Bld) [#/Vol] 1.0 10*3/uL Normal 1.0-4.3 [facility] Comment on above: Performed By: #### L [id number] ####Graphic Coordinator: NATALIE GARCIA ([id number])[facility] (SBHLAB)[address] [place] [address] [place] Lymphocytes/100 WBC (Bld) 16.5 % Normal 15.0-45.0 [facility] Comment on above: Performed By: #### L [id number] ####Graphic Coordinator: NATALIE GARCIA ([id number])[facility] (SBHLAB)[address] MCH (RBC) [Entitic mass] 26.5 pg Normal 26.0-34.0 [facility] Comment on above: Performed By: #### L [id number] ####Graphic Coordinator: NATALIE GARCIA ([id number])[facility] (SBHLAB)[address] MCHC 30.8 % Normal 30.5-36.0 [facility] Comment on above: Performed By: #### L [id number] ####Graphic Coordinator: NATALIE GARCIA ([id number])[facility] (SBHLAB)[address] MCV (RBC) [Entitic vol] 86.1 fL Normal 77.0-99.0 [facility] Comment on above: Performed By: #### L [id number] ####Graphic Coordinator: NATALIE GARCIA ([id number])[facility] (SBHLAB)[address] Monocytes (Bld) [#/Vol] 0.5 10*3/uL Normal 0.0-0.9 [facility] Comment on above: Performed By: #### L [id number] ####Graphic Coordinator: NATALIE GARCIA ([id number])[facility] (SBHLAB)[address] Monocytes/100 WBC (Bld) 7.9 % Normal 5.0-13.0 [facility] Comment on above: Performed By: #### L [id number] ####Graphic Coordinator: NATALIE GARCIA ([id number])[facility] [place] (SBHLAB)[address] NEUTROPHILS ABSOLUTE 4.5 10*3/uL Normal 1.8-7.5 [facility] Comment on above: Performed By: #### L [id number] ####Graphic Coordinator: NATALIE GARCIA ([id number])[facility] [place] (SB[facility])[address] Neutrophils/100 WBC (Bld) 71.8 % Normal 38.0-82.0 [facility] Comment on above: Performed By: #### L [id number] ####Graphic Coordinator: NATALIE GARCIA ([id number])[facility] [place] (SBHLAB)[address] NRBC 0.0 /100 WBCs Normal 0.0-2.0 [facility] Comment on above: Performed By: #### L [id number] ####Graphic Coordinator: NATALIE GARCIA ([id number])[facility] [place] (SB[facility])[address] Platelet mean volume (Bld) [Entitic vol] 9.9 fL Normal 9.0-12.7 [facility] Comment on above: Performed By: #### L [id number] ####Graphic Coordinator: NATALIE GARCIA ([id number])[facility] [place] (SB[facility]AB)[address] Platelets (Bld) [#/Vol] 217 10*3/uL Normal 140-440 [facility] Comment on above: Performed By: #### L [id number] ####Graphic Coordinator: NATALIE GARCIA ([id number])[facility] [place] (SB[facility]AB)[address] RBC (Bld) [#/Vol] 2.87 10*6/uL Low 3.80-5.20 [facility] Comment on above: Performed By: #### L [id number] ####Graphic Coordinator: NATALIE GARCIA ([id number])[facility] [place] (SBHLAB)155 [place] [address] [place] WBC (Bld) [#/Vol] 6.2 10*3/uL Normal 3.6-10.7 [facility] Comment on above: Performed By: #### L [id number] ####Graphic Coordinator: NATALIE GARCIA ([id number])[facility] [place] (SB[facility])[address] COMPREHENSIVE METABOLIC PANE Florentin 06-16-2025 Albumin [Mass/Vol] 2.2 g/dL Low 3.4-4.8 [facility] Comment on above: Performed By: #### L [id number] ####Graphic Coordinator: NATALIE GARCIA ([id number])[facility] [place] (SBHLAB)[address] ALP [Catalytic activity/Vol] 127 U/L Normal 40-150 [facility] Comment on above: Performed By: #### L [id number] ####Graphic Coordinator: NATALIE GARCIA ([id number])[facility] [place] ([facility])[address] ALT [Catalytic activity/Vol] 12 U/L Normal <30 [facility] Comment on above: Performed By: #### L [id number] ####Graphic Coordinator: NATALIE GARCIA ([id number])[facility] [place] (SB[facility])[address] Anion gap [Moles/Vol] 10 mmol/L Normal 3-13 [facility] Comment on above: Performed By: #### L [id number] ####Graphic Coordinator: NATALIE GARCIA ([id number])[facility] [place] (SB[facility])[address] AST [Catalytic activity/Vol] 26 U/L Normal <34 [facility] Comment on above: Performed By: #### L [id number] ####Graphic Coordinator: NATALIE GARCIA ([id number])[facility] [place] ([facility])[address] Bilirubin [Mass/Vol] 0.5 mg/dL Normal <1.2 [facility] Comment on above: Performed By: #### L [id number] ####Graphic Coordinator: NATALIE GARCIA ([id number])[facility] [place] (SB[facility])[address] Calcium [Mass/Vol] 8.6 mg/dL Low 8.8-10.0 [facility] Comment on above: Performed By: #### L [id number] ####Graphic Coordinator: NATALIE GARCIA ([id number])[facility] [place] (SBHLAB)[address] Chloride [Moles/Vol] 100 mmol/L Normal 98-107 [facility] Comment on above: Performed By: #### L [id number] ####Graphic Coordinator: NATALIE GARCIA ([id number])[facility] [place] (SB[facility])[address] CO2 [Moles/Vol] 27 mmol/L Normal 23-31 [facility] Comment on above: Performed By: #### L [id number] ####Graphic Coordinator: NATALIE GARCIA ([id number])[facility]ITAL[facility] [place] (SBHLAB)[address] Creatinine [Mass/Vol] 1.89 mg/dL High 0.57-1.11 [facility] Comment on above: Performed By: #### L [id number] ####Graphic Coordinator: NATALIE GARCIA ([id number])[facility] (HL[facility])[address] GLOMERULAR FILTRATION RATE ML/MIN/1.73 SQ M.PREDICTED 27.1 mL/min/1.73m*2 Low >60.0 [facility] Comment on above: Result Comment: Calc ulation based on the Chronic Kidney Disease Epidemiology Collaboration (CKD-EPI) equation refit without adjustment for race Performed By: #### L [id number] ####Graphic Coordinator: NATALIE GARCIA ([id number])[facility] [place] (SB[facility]AB)155 [place] [address] [place] Glucose [Mass/Vol] 131 mg/dL High 82-115 [facility] Comment on above: Performed By: #### L [id number] ####Graphic Coordinator: NATALIE GARCIA ([id number])[facility] [place] (SB[facility]AB)155 [place] [address] [place] Potassium [Moles/Vol] 4.4 mmol/L Normal 3.5-5.1 [facility] Comment on above: Result Comment: [facility] potassium values may be up to 0.5 mmol/L lower than serum values. Performed By: #### L [id number] ####Graphic Coordinator: NATALIE GARCIA ([id number])[facility] (SB[facility]AB)[address] Protein [Mass/Vol] 6.3 g/dL Low 6.4-8.3 [facility] Comment on above: Performed By: #### L [id number] ####Graphic Coordinator: NATALIE GARCIA ([id number])[facility] (SBHLAB)[address] Sodium [Moles/Vol] 137 mmol/L Normal 136-145 [facility] Comment on above: Performed By: #### L [id number] ####Graphic Coordinator: NATALIE GARCIA ([id number])[facility] (SBHLAB)[address] Urea nitrogen [Mass/Vol] 20 mg/dL Normal 9-23 [facility] Comment on above: Performed By: #### L [id number] ####Graphic Coordinator: NATALIE GARCIA ([id number])[facility] (SBHLAB)[address] Comprehensive metabolic 1998 panelon 06-16-2025 Albumin [Mass/Vol] 2.2 g/dL Low 3.4 - 4.8 g/dL [facility] ALP [Catalytic activity/Vol] 127 U/L 40 - 150 U/L [facility] ALT [Catalytic activity/Vol] 12 U/L NINF - 30 U/L [facility] Anion gap [Moles/Vol] 10 mmol/L 3 - 13 mmol/L [facility] AST [Catalytic activity/Vol] 26 U/L NINF - 34 U/L [facility] Bilirubin [Mass/Vol] 0.5 mg/dL NINF - 1.2 mg/dL [facility] Calcium [Mass/Vol] 8.6 mg/dL Low 8.8 - 10. 0 mg/dL [facility] Chloride [Moles/Vol] 100 mmol/L 98 - 10 7 mmol/L [facility] CO2 [Moles/Vol] 27 mmol/L 23 - 31 mmol/L [facility] Creatinine [Mass/Vol] 1.89 mg/dL High 0.57 - 1.11 mg/dL [facility] GFR/1.73 sq M.predicted (S/P/Bld) [Vol rate/Area] 27.1 mL/min Low - PINF [facility] Glucose [Mass/Vol] 131 mg/dL High 82 - 115 mg/dL [facility] Interpretation and review of laboratory results Abnormal [facility] Potassium [Moles/Vol] 4.4 mmol/L 3.5 - 5.1 mmol/L [facility] Protein [Mass/Vol] 6.3 g/dL Low 6.4 - 8.3 g/dL [facility] Sodium [Moles/Vol] 137 mmol/L 136 - 145 mmol/L [facility] Urea nitrogen [Mass/Vol] 20 mg/dL 9 - 23 mg/dL [facility] Laboratory - Chemistry and C hemistry - challengeon 06-16-2025 Glucose [Mass/Vol] 138 mg/dL High 70 - 100 mg/dL [facility] Glucose [Mass/Vol] 134 mg/dL High 70 - 100 mg/dL [facility] Glucose [Mass/Vol] 149 mg/dL High 70 - 100 mg/dL [facility] Glucose [Mass/Vol] 142 mg/dL High 70 - 100 mg/dL [facility] Glucose [Mass/Vol] 141 mg/dL High 70 - 100 mg/dL [facility] No Panel Informationon 06-16 Interpretation and review of laboratory results Abnormal [facility] Interpretation and review of laboratory results Abnormal [facility] Interpretation and review of laboratory results Abnormal [facility] Interpretation and review of laboratory results Abnormal [facility] Interpretation and review of laboratory results Abnormal [facility] Progress Noteon 06-16-2025 Progress Note Normal [facility] Progress Note Normal [facility] [id number] 06-15-2025 [id number] Normal [facility] [id number] Normal [facility] Bacteria identified Anaer cx Nom (Unsp spec)on 06-15-2025 Interpretation and review of laboratory results Normal [facility] CBC W Auto Differential pane l (Bld)on 06-15-2025 Basophils (Bld) [#/Vol] 0.1 10*3/uL 0.0 - 0.2 10*3/uL [facility] Basophils/100 WBC (Bld) 0.8 % 0.0 - 2.0 % [facility] Eosinophils (Bld) [#/Vol] 0.1 10*3/uL 0.0 - 0.5 10*3/uL [facility] Eosinophils/100 WBC (Bld) 2.1 % 0.0 - 6.0 % [facility] Erythrocyte distribution width (RBC) [Ratio] 17.7 % High 11.5 - 15.0 % [facility] Hematocrit (Bld) [Volume fraction] 25.7 % Low 35.0 - 47.0 % [facility] Hemoglobin (Bld) [Mass/Vol] 7.9 g/dL Low 11.7 - 16.0 g/dL [facility] Immature granulocytes (Bld) [#/Vol] 0 10*3/uL NINF - 0.1 10*3/uL [facility] Immature granulocytes/100 WBC (Bld) 0.3 % 0.0 - 2.0 % [facility] Interpretation and review of laboratory results Abnormal [facility] Lymphocytes (Bld) [#/Vol] 1.3 10*3/uL 1.0 - 4.3 10*3/uL [facility] Lymphocytes/100 WBC (Bld) 21.3 % 15.0 - 45.0 % [facility] MCH (RBC) [Entitic mass] 26.2 pg 26.0 - 34.0 pg [facility] MCHC (RBC) [Mass/Vol] 30.7 % 30.5 - 36.0 % [facility] MCV (RBC) [Entitic vol] 85.4 fL 77.0 - 99.0 fL [facility] Monocytes (Bld) [#/Vol] 0.5 10*3/uL 0.0 - 0.9 10*3/uL [facility] Monocytes/100 WBC (Bld) 8.6 % 5.0 - 13.0 % [facility] Neutrophils (Bld) [#/Vol] 4.1 10*3/uL 1.8 - 7.5 10*3/uL [facility] Neutrophils/100 WBC (Bld) 66.9 % 38.0 - 82.0 % [facility] Nucleated RBC/100 WBC (Bld) [Ratio] 0 % [facility] Platelet mean volume (Bld) [Entitic vol] 9.7 fL 9.0 - 12.7 fL [facility] Platelets (Bld) [#/Vol] 233 10*3/uL 140 - 440 10*3/uL [facility] RBC (Bld) [#/Vol] 3.01 10*6/uL Low 3.80 - 5.2 0 10*6/uL [facility] WBC (Bld) [#/Vol] 6.1 10*3/uL 3.6 - 10.7 10*3/uL [facility] CBC WITH AUTO DIFFERENTIALon 06-15-2025 Basophils (Bld) [#/Vol] 0.1 10*3/uL Normal 0.0-0.2 [facility] Comment on above: Performed By: #### L [id number] ####Graphic Coordinator: NATALIE GARCIA ([id number])[facility] (SBAB)[address] [place] [address] Basophils/100 WBC (Bld) 0.8 % Normal 0.0-2.0 S [facility] Comment on above: Performed By: #### L [id number] ####Graphic Coordinator: NATALIE GARCIA ([id number])[facility] (SBAB)[address] Eosinophils (Bld) [#/Vol] 0.1 10*3/uL Normal 0.0-0.5 [facility] Comment on above: Performed By: #### L [id number] ####Graphic Coordinator: NATALIE GARCIA ([id number])[facility] (SBAB)[address] Eosinophils/100 WBC (Bld) 2.1 % Normal 0.0-6.0 [facility] Comment on above: Performed By: #### L [id number] ####Graphic Coordinator: NATALIEMELODIE GARCIA ([id number])[facility] (SBHLAB)[address] [place] [address] Erythrocyte distribution width (RBC) [Ratio] 17.7 % High 11.5-15.0 [facility] Comment on above: Performed By: #### L [id number] ####Graphic Coordinator: NATALIE JOSE ([id number])[facility] ([facility] [place] [address] Hematocrit (Bld) [Volume fraction] 25.7 % Low 35.0-47.0 [facility] Comment on above: Performed By: #### L [id number] ####Graphic Coordinator: NATALIE GARCIA ([id number])[facility] ([facility])[address] [place] [address] Hemoglobin (Bld) [Mass/Vol] 7.9 g/dL Low 11.7-16.0 [facility] Comment on above: Performed By: #### L [id number] ####Graphic Coordinator: NATALIEMELODIE GARCIA ([id number])[facility] ([facility])[address] [place] [address] IMMATURE GRANS % 0.3 % Normal 0.0-2.0 [facility] Comment on above: Performed By: #### L [id number] ####Graphic Coordinator: NATALIE DENISETRICIA ([id number])[facility] ([facility])[address] [place] [address] IMMATURE GRANS ABSOLUTE 0.0 10*3/uL Normal <0.1 [facility] Comment on above: Performed By: #### L [id number] ####Graphic Coordinator: NATALIE SIMONDANIEL ([id number])[facility] ([facility])[address] [place] [address] Lymphocytes (Bld) [#/Vol] 1.3 10*3/uL Normal 1.0-4.3 [facility] Comment on above: Performed By: #### L [id number] ####Graphic Coordinator: NATALIE DENISETRICIA ([id number])[facility] (SBHLAB)[address] Lymphocytes/100 WBC (Bld) 21.3 % Normal 15.0-45.0 [facility] Comment on above: Performed By: #### L [id number] ####Graphic Coordinator: NATALIE DENISETRICIA ([id number])[facility]ITAL[facility]La[facility] (SBHLAB)[address] MCH (RBC) [Entitic mass] 26.2 pg Normal 26.0-34.0 [facility] Comment on above: Performed By: #### L [id number] ####Graphic Coordinator: NATALIE DENISETRICIA ([id number])[facility]ITAL[facility] Miguel [place]OLa[place] (SBHLAB)[address] [place] [address] MCHC 30.7 % Normal 30.5-36.0 [facility] Comment on above: Performed By: #### L [id number] ####Graphic Coordinator: NATALIE SIMONErlindaTRICIA ([id number])[facility]ITALJos[facility] Miguel [facility]La[facility] (SBHLAB)[address] MCV (RBC) [Entitic vol] 85.4 fL Normal 77.0-99.0 [facility] Comment on above: Performed By: #### L [id number] ####Graphic Coordinator: NATALIE GARCIA ([id number])[facility]ITAL[facility] (SBHLAB)[address] [place] [address] Monocytes (Bld) [#/Vol] 0.5 10*3/uL Normal 0.0-0.9 [facility] Comment on above: Performed By: #### L [id number] ####Graphic Coordinator: NATALIE DENISETRICIA ([id number])[facility]ITAL[facility] Miguel [facility]La[facility] (SBHLAB)[address] Monocytes/100 WBC (Bld) 8.6 % Normal 5.0-13.0 [facility] Comment on above: Performed By: #### L [id number] ####Graphic Coordinator: NATALIE GARCIA ([id number])[facility] [place] (SB[facility])[address] NEUTROPHILS ABSOLUTE 4.1 10*3/uL Normal 1.8-7.5 [facility] Comment on above: Performed By: #### L [id number] ####Graphic Coordinator: NATALIE GARCIA ([id number])[facility] [place] (SB[facility]AB)[address] Neutrophils/100 WBC (Bld) 66.9 % Normal 38.0-82.0 [facility] Comment on above: Performed By: #### L [id number] ####Graphic Coordinator: NATALIE GARCIA ([id number])[facility] [place] (SB[facility]AB)[address] NRBC 0.0 /100 WBCs Normal 0.0-2.0 [facility] Comment on above: Performed By: #### L [id number] ####Graphic Coordinator: NATALIE GARCIA ([id number])[facility] [place] (SB[facility])[address] Platelet mean volume (Bld) [Entitic vol] 9.7 fL Normal 9.0-12.7 [facility] Comment on above: Performed By: #### L [id number] ####Graphic Coordinator: NATALIE GARCIA ([id number])[facility] [place] (SBHLAB)155 [place] [address] [place] Platelets (Bld) [#/Vol] 233 10*3/uL Normal 140-440 [facility] Comment on above: Performed By: #### L [id number] ####Graphic Coordinator: NATALIE GARCIA ([id number])[facility] [place] (SBHLAB)[address] RBC (Bld) [#/Vol] 3.01 10*6/uL Low 3.80-5.20 [facility] Comment on above: Performed By: #### L [id number] ####Graphic Coordinator: NATALIE GARCIA ([id number])[place] [place] (SBHLAB)[address] WBC (Bld) [#/Vol] 6.1 10*3/uL Normal 3.6-10.7 [facility] Comment on above: Performed By: #### L [id number] ####Graphic Coordinator: NATALIE GARCIA ([id number])[facility] [place] (SBHLAB)[address] COMPREHENSIVE METABOLIC PANE Florentin 06-15-2025 Albumin [Mass/Vol] 2.3 g/dL Low 3.4-4.8 [facility] Comment on above: Performed By: #### L [id number], [id number] ####Graphic Coordinator: NATALIE GARCIA ([id number])[facility] [place] (SBHLAB)[address] ALP [Catalytic activity/Vol] 129 U/L Normal 40-150 [facility] Comment on above: Performed By: #### L AB17, [id number] ####Graphic Coordinator: NATALIE GARCIA ([id number])[facility] [place] (SBHLAB)[address] ALT [Catalytic activity/Vol] 10 U/L Normal <30 [facility] Comment on above: Performed By: #### L [id number], [id number] ####Graphic Coordinator: NATALIE GARCIA ([id number])[facility] [place] (SBHLAB)[address] Anion gap [Moles/Vol] 12 mmol/L Normal 3-13 [facility] Comment on above: Performed By: #### L AB17, [id number] ####Graphic Coordinator: NATALIE GARCIA ([id number])[facility] [place] (SBHLAB)[address] AST [Catalytic activity/Vol] 26 U/L Normal <34 [facility] Comment on above: Performed By: #### L AB17, [id number] ####Graphic Coordinator: NATALIE GARCIA ([id number])[facility] (SBHLAB)[address] Bilirubin [Mass/Vol] 0.7 mg/dL Normal <1.2 [facility] Comment on above: Performed By: #### L AB17, [id number] ####Graphic Coordinator: NATALIE GARCIA ([id number])[facility]ITALJosé Miguel [place] (SBHLAB)[address] Calcium [Mass/Vol] 8.8 mg/dL Normal 8.8-10.0 [facility] Comment on above: Performed By: #### L [id number], [id number] ####Graphic Coordinator: NATALIE GARCIA ([id number])[facility]ITALJos[facility] Miguel [place] (SBHLAB)[address] Chloride [Moles/Vol] 97 mmol/L Low 98-107 [facility] Comment on above: Performed By: #### L AB17, [id number] ####Graphic Coordinator: NATALIE GARCIA ([id number])[facility]ITALJosé Miguel [place] (SBHLAB)155 [place] [address] [place] CO2 [Moles/Vol] 25 mmol/L Normal 23-31 [facility] Comment on above: Performed By: #### L AB17, [id number] ####Graphic Coordinator: NATALIE GARCIA ([id number])[facility]ITALJosé Miguel [place]N (SBHLAB)155 [place] [address] [place] Creatinine [Mass/Vol] 2.80 mg/dL High 0.57-1.11 [facility] Comment on above: Performed By: #### L AB17, [id number] ####Graphic Coordinator: NATALIE GARCIA ([id number])[facility] [place] (SBHLAB)[address] [place] [address] [place] GLOMERULAR FILTRATION RATE ML/MIN/1.73 SQ M.PREDICTED 16.9 mL/min/1.73m*2 Low >60.0 [facility] Comment on above: Result Comment: Calc ulation based on the Chronic Kidney Disease Epidemiology Collaboration (CKD-EPI) equation refit without adjustment for race Performed By: #### L AB17, [id number] ####Graphic Coordinator: NATALIE GARCIA ([id number])[facility]ITALJos[facility] Miguel [facility]HE[facility] (SBHLAB)[address] Glucose [Mass/Vol] 80 mg/dL Low 82-115 [facility] Comment on above: Performed By: #### L AB17, [id number] ####Graphic Coordinator: NATALIE GARCIA ([id number])[facility] [place] (SBHLAB)[address] Potassium [Moles/Vol] 3.4 mmol/L Low 3.5-5.1 [facility] Comment on above: Result Comment: [facility] potassium values may be up to 0.5 mmol/L lower than serum values. Performed By: #### L AB17, [id number] ####Graphic Coordinator: NATALIE GARCIA ([id number])[facility]ITALJos[facility] (SBHLAB)[address] Protein [Mass/Vol] 6.4 g/dL Normal 6.4-8.3 [facility] Comment on above: Performed By: #### L AB17, [id number] ####Graphic Coordinator: NATALIE GARCIA ([id number])[facility]ITALJos[facility] [place] (SBHLAB)[address] Sodium [Moles/Vol] 134 mmol/L Low 136-145 [facility] Comment on above: Performed By: #### L AB17, [id number] ####Graphic Coordinator: NATALIE GARCIA ([id number])[facility] [place] (SBHLAB)[address] Urea nitrogen [Mass/Vol] 31 mg/dL High 9-23 [facility] Comment on above: Performed By: #### L AB17, [id number] ####Graphic Coordinator: NATALIE GARCIA ([id number])[facility]ITALA BARBGALLUP [facility]ERN (SBHLAB)[address] Comprehensive metabolic 1998 panelon 06-15-2025 Albumin [Mass/Vol] 2.3 g/dL Low 3.4 - 4.8 g/dL [facility] ALP [Catalytic activity/Vol] 129 U/L 40 - 150 U/L [facility] ALT [Catalytic activity/Vol] 10 U/L NINF - 30 U/L [facility] Anion gap [Moles/Vol] 12 mmol/L 3 - 13 mmol/L [facility] AST [Catalytic activity/Vol] 26 U/L NINF - 34 U/L [facility] Bilirubin [Mass/Vol] 0.7 mg/dL NINF - 1.2 mg/dL [facility] Calcium [Mass/Vol] 8.8 mg/dL 8.8 - 10. 0 mg/dL [facility] Chloride [Moles/Vol] 97 mmol/L Low 98 - 10 7 mmol/L [facility] CO2 [Moles/Vol] 25 mmol/L 23 - 31 mmol/L [facility] Creatinine [Mass/Vol] 2.8 mg/dL High 0.57 - 1.11 mg/dL [facility] GFR/1.73 sq M.predicted (S/P/Bld) [Vol rate/Area] 16.9 mL/min Low - PINF [facility] Glucose [Mass/Vol] 80 mg/dL Low 82 - 115 mg/dL [facility] Interpretation and review of laboratory results Abnormal [facility] Potassium [Moles/Vol] 3.4 mmol/L Low 3.5 - 5.1 mmol/L [facility] Protein [Mass/Vol] 6.4 g/dL 6.4 - 8.3 g/dL [facility] Sodium [Moles/Vol] 134 mmol/L Low 136 - 145 mmol/L [facility] Urea nitrogen [Mass/Vol] 31 mg/dL High 9 - 23 mg/dL [facility] Laboratory - Chemistry and C hemistry - challengeon 06-15-2025 Glucose [Mass/Vol] 143 mg/dL High 70 - 100 mg/dL [facility] Glucose [Mass/Vol] 117 mg/dL High 70 - 100 mg/dL [facility] Glucose [Mass/Vol] 98 mg/dL 70 - 100 mg/dL [facility] Magnesium [Mass/Vol] 1.8 mg/dL 1.6 - 2 .6 mg/dL [facility] Glucose [Mass/Vol] 100 mg/dL 70 - 100 mg/dL [facility] Laboratory - Microbiology an d Antimicrobial susceptibilityon 06-15-2025 Bacteria identified Anaer cx Nom (Unsp spec) No growth at 5 days [facility] MAGNESIUMon 06-15-2025 Magnesium [Mass/Vol] 1.8 mg/dL Normal 1.6-2.6 [facility] Comment on above: Result Comment: DARIENE R COMMENTS:Higher values can be expected in females during menses. Performed By: #### L [id number] ####Graphic Coordinator: NATALIE GARCIA ([id number])[facility] ([facility])[address] [place] [address] Magnesium [Mass/Vol]on 06-15 Interpretation and review of laboratory results Normal [facility] No Panel Informationon 06-15 Interpretation and review of laboratory results Abnormal [facility] Interpretation and review of laboratory results Abnormal [facility] Interpretation and review of laboratory results Normal [facility] Interpretation and review of laboratory results Normal [facility] Nursing Noteon 06-15-2025 Nursing Note Normal [facility] Progress Noteon 06-15-2025 Progress [facility] Progress [facility] Progress Note [facility] Progress Note [facility] Progress Note Normal [facility] [id number] 06-14-2025 [id number] Normal [facility] CBC W Auto Differential pane l (Bld)on 06-14-2025 Basophils (Bld) [#/Vol] 0 10*3/uL 0.0 - 0.2 10*3/uL [facility] Basophils/100 WBC (Bld) 0.7 % 0.0 - 2.0 % [facility] Eosinophils (Bld) [#/Vol] 0.2 10*3/uL 0.0 - 0.5 10*3/uL [facility] Eosinophils/100 WBC (Bld) 4 % 0.0 - 6.0 % [facility] Erythrocyte distribution width (RBC) [Ratio] 18 % High 11.5 - 15.0 % [facility] Hematocrit (Bld) [Volume fraction] 27.2 % Low 35.0 - 47.0 % [facility] Hemoglobin (Bld) [Mass/Vol] 8.5 g/dL Low 11.7 - 16.0 g/dL [facility] Immature granulocytes (Bld) [#/Vol] 0 10*3/uL NINF - 0.1 10*3/uL [facility] Immature granulocytes/100 WBC (Bld) 0.5 % 0.0 - 2.0 % [facility] Interpretation and review of laboratory results Abnormal [facility] Lymphocytes (Bld) [#/Vol] 0.9 10*3/uL Low 1.0 - 4.3 10*3/uL [facility] Lymphocytes/100 WBC (Bld) 16.8 % 15.0 - 45.0 % [facility] MCH (RBC) [Entitic mass] 26.5 pg 26.0 - 34.0 pg [facility] MCHC (RBC) [Mass/Vol] 31.3 % 30.5 - 36.0 % [facility] MCV (RBC) [Entitic vol] 84.7 fL 77.0 - 99.0 fL [facility] Monocytes (Bld) [#/Vol] 0.7 10*3/uL 0.0 - 0.9 10*3/uL [facility] Monocytes/100 WBC (Bld) 12.1 % 5.0 - 13.0 % [facility] Neutrophils (Bld) [#/Vol] 3.7 10*3/uL 1.8 - 7.5 10*3/uL [facility] Neutrophils/100 WBC (Bld) 65.9 % 38.0 - 82.0 % [facility] Nucleated RBC/100 WBC (Bld) [Ratio] 0 % [facility] Platelet mean volume (Bld) [Entitic vol] 9.8 fL 9.0 - 12.7 fL [facility] Platelets (Bld) [#/Vol] 222 10*3/uL 140 - 440 10*3/uL [facility] RBC (Bld) [#/Vol] 3.21 10*6/uL Low 3.80 - 5.2 0 10*6/uL [facility] WBC (Bld) [#/Vol] 5.6 10*3/uL 3.6 - 10.7 10*3/uL [facility] CBC WITH AUTO DIFFERENTIALon 06-14-2025 Basophils (Bld) [#/Vol] 0.0 10*3/uL Normal 0.0-0.2 [facility] Comment on above: Performed By: #### L [id number] ####Graphic Coordinator: NATALIE GARCIA ([id number])[facility] [place] (SBHLAB)[address] Basophils/100 WBC (Bld) 0.7 % Normal 0.0-2.0 [facility] Comment on above: Performed By: #### L [id number] ####Graphic Coordinator: NATALIE GARCIA ([id number])[facility] [place] (SBHLAB)[address] Eosinophils (Bld) [#/Vol] 0.2 10*3/uL Normal 0.0-0.5 [facility] Comment on above: Performed By: #### L [id number] ####Graphic Coordinator: NATALIE GARCIA ([id number])[facility] [place] (SB[facility])[address] Eosinophils/100 WBC (Bld) 4.0 % Normal 0.0-6.0 [facility] Comment on above: Performed By: #### L [id number] ####Graphic Coordinator: NATALIE GARCIA ([id number])[facility] [place] (SB[facility])[address] Erythrocyte distribution width (RBC) [Ratio] 18.0 % High 11.5-15.0 [facility] Comment on above: Performed By: #### L [id number] ####Graphic Coordinator: NATALIE GARCIA ([id number])[facility] [place] (SBHLAB)[address] [place] [address] Hematocrit (Bld) [Volume fraction] 27.2 % Low 35.0-47.0 [facility] Comment on above: Performed By: #### L [id number] ####Graphic Coordinator: NATALIE GARCIA ([id number])[facility] [place] (SB[facility])[address] Hemoglobin (Bld) [Mass/Vol] 8.5 g/dL Low 11.7-16.0 [facility] Comment on above: Performed By: #### L [id number] ####Graphic Coordinator: NATALIE GARCIA ([id number])[facility] (SBHLAB)[address] IMMATURE GRANS % 0.5 % Normal 0.0-2.0 [facility] Comment on above: Performed By: #### L [id number] ####Graphic Coordinator: NATALIE GARCIA ([id number])[facility] IMMATURE GRANS ABSOLUTE 0.0 10*3/uL Normal <0.1 [facility] Comment on above: Performed By: #### L [id number] ####Graphic Coordinator: NATALIE GARCIA ([id number])[facility] (SBHLAB)[address] Lymphocytes (Bld) [#/Vol] 0.9 10*3/uL Low 1.0-4.3 [facility] Comment on above: Performed By: #### L [id number] ####Graphic Coordinator: NATALIE GARCIA ([id number])[facility])[address] Lymphocytes/100 WBC (Bld) 16.8 % Normal 15.0-45.0 [facility] Comment on above: Performed By: #### L [id number] ####Graphic Coordinator: NATALIE GARCIA ([id number])[facility])[address] MCH (RBC) [Entitic mass] 26.5 pg Normal 26.0-34.0 [facility] Comment on above: Performed By: #### L [id number] ####Graphic Coordinator: NATALIE GARCIA ([id number])[facility] [place] (SBHLAB)[address] MCHC 31.3 % Normal 30.5-36.0 [facility] Comment on above: Performed By: #### L [id number] ####Graphic Coordinator: NATALIE GARCIA ([id number])[facility] [place] (SBHLAB)[address] MCV (RBC) [Entitic vol] 84.7 fL Normal 77.0-99.0 [facility] Comment on above: Performed By: #### L [id number] ####Graphic Coordinator: NATALIE GARCIA ([id number])[facility] [place] (SBHLAB)[address] Monocytes (Bld) [#/Vol] 0.7 10*3/uL Normal 0.0-0.9 [facility] Comment on above: Performed By: #### L [id number] ####Graphic Coordinator: NATALIE GARCIA ([id number])[facility] [place] (SBHLAB)[address] Monocytes/100 WBC (Bld) 12.1 % Normal 5.0-13.0 [facility] Comment on above: Performed By: #### L [id number] ####Graphic Coordinator: NATALIE GARCIA ([id number])[facility] [place] (SBHLAB)[address] [place] [address] NEUTROPHILS ABSOLUTE 3.7 10*3/uL Normal 1.8-7.5 [facility] Comment on above: Performed By: #### L [id number] ####Graphic Coordinator: NATALIE GARCIA ([id number])[facility] [place] (SBHLAB)[address] Neutrophils/100 WBC (Bld) 65.9 % Normal 38.0-82.0 [facility] Comment on above: Performed By: #### L [id number] ####Graphic Coordinator: NATALIE GARCIA ([id number])[facility] [place] (SBHLAB)[address] NRBC 0.0 /100 WBCs Normal 0.0-2.0 [facility] Comment on above: Performed By: #### L [id number] ####Graphic Coordinator: NATALIE DENISETRICIA ([id number])[facility] [place] ([facility])[address] Platelet mean volume (Bld) [Entitic vol] 9.8 fL Normal 9.0-12.7 [facility] Comment on above: Performed By: #### L [id number] ####Graphic Coordinator: NATALIE GARCIA ([id number])[facility] [place] ([facility])[address] Platelets (Bld) [#/Vol] 222 10*3/uL Normal 140-440 [facility] Comment on above: Performed By: #### L [id number] ####Graphic Coordinator: NATALIE GARCIA ([id number])[facility] [place] (SB[facility])[address] [place] [address] RBC (Bld) [#/Vol] 3.21 10*6/uL Low 3.80-5.20 [facility] Comment on above: Performed By: #### L [id number] ####Graphic Coordinator: NATALIE GARCIA ([id number])[facility]ITAL[facility]é Miguel [facility] (SBHLAB)[address] [place] [address] WBC (Bld) [#/Vol] 5.6 10*3/uL Normal 3.6-10.7 [facility] Comment on above: Performed By: #### L [id number] ####Graphic Coordinator: NATALIE GARCIA ([id number])[facility] [place] ([facility])[address] COMPREHENSIVE METABOLIC PANE Florentin 06-14-2025 Albumin [Mass/Vol] 2.3 g/dL Low 3.4-4.8 [facility] Comment on above: Performed By: #### L [id number], [id number] ####Graphic Coordinator: NATALIE GARCIA ([id number])[facility] [place] ([facility])[address] ALP [Catalytic activity/Vol] 135 U/L Normal 40-150 [facility] Comment on above: Performed By: #### L [id number], [id number] ####Graphic Coordinator: NATALIE GARCIA ([id number])[facility] [place] ([facility])[address] ALT [Catalytic activity/Vol] 16 U/L Normal <30 [facility] Comment on above: Performed By: #### L AB17, [id number] ####Graphic Coordinator: NATALIE GARCIA ([id number])[facility] [place] ([facility])[address] Anion gap [Moles/Vol] 11 mmol/L Normal 3-13 [facility] Comment on above: Performed By: #### L [id number], [id number] ####Graphic Coordinator: NATALIE GARCIA ([id number])[facility] [place] ([facility])[address] AST [Catalytic activity/Vol] 27 U/L Normal <34 [facility] Comment on above: Performed By: #### L [id number], [id number] ####Graphic Coordinator: NATALIE GARCIA ([id number])[facility] [place] ([facility])[address] Bilirubin [Mass/Vol] 0.6 mg/dL Normal <1.2 [facility] Comment on above: Performed By: #### L AB17, [id number] ####Graphic Coordinator: NATALIE GARCIA ([id number])[facility] [place] ([facility])[address] Calcium [Mass/Vol] 9.0 mg/dL Normal 8.8-10.0 [facility] Comment on above: Performed By: #### L AB17, [id number] ####Graphic Coordinator: NATALIE GARCIA ([id number])[facility] [place] ([facility])[address] Chloride [Moles/Vol] 99 mmol/L Normal 98-107 [facility] Comment on above: Performed By: #### L AB17, [id number] ####Graphic Coordinator: NATALIE GARCIA ([id number])[facility] (SBHLAB)[address] CO2 [Moles/Vol] 28 mmol/L Normal 23-31 [facility] Comment on above: Performed By: #### L AB17, [id number] ####Graphic Coordinator: NATALIE GARCIA ([id number])[facility] (HLAB)[address] Creatinine [Mass/Vol] 1.93 mg/dL High 0.57-1.11 [facility] Comment on above: Performed By: #### L AB17, [id number] ####Graphic Coordinator: NATALIE GARCIA ([id number])[facility] (HLAB)[address] GLOMERULAR FILTRATION RATE ML/MIN/1.73 SQ M.PREDICTED 26.4 mL/min/1.73m*2 Low >60.0 [facility] Comment on above: Result Comment: Calc ulation based on the Chronic Kidney Disease Epidemiology Collaboration (CKD-EPI) equation refit without adjustment for race Performed By: #### L AB17, [id number] ####Graphic Coordinator: NATALIE GARCIA ([id number])[facility] (HLAB)[address] [place] [address] [place] Glucose [Mass/Vol] 100 mg/dL Normal 82-115 [facility] Comment on above: Performed By: #### L AB17, [id number] ####Graphic Coordinator: NATALIE GARCIA ([id number])[facility] (HLAB)[address] Potassium [Moles/Vol] 3.5 mmol/L Normal 3.5-5.1 [facility] Comment on above: Result Comment: Plas ma potassium values may be up to 0.5 mmol/L lower than serum values. Performed By: #### L AB17, [id number] ####Graphic Coordinator: NATALIE GARCIA ([id number])[facility] [place] (SB[facility])[address] Protein [Mass/Vol] 6.7 g/dL Normal 6.4-8.3 [facility] Comment on above: Performed By: #### L AB17, [id number] ####Graphic Coordinator: NATALIE GARCIA ([id number])[facility] [place] ([facility])[address] Sodium [Moles/Vol] 138 mmol/L Normal 136-145 [facility] Comment on above: Performed By: #### L AB17, [id number] ####Graphic Coordinator: NATALIE GARCIA ([id number])[facility] [place] ([facility])[address] Urea nitrogen [Mass/Vol] 19 mg/dL Normal 9-23 [facility] Comment on above: Performed By: #### L AB17, [id number] ####Graphic Coordinator: NATALIE GARCIA ([id number])[facility] [place] ([facility])[address] Comprehensive metabolic 1998 panelon 06-14-2025 Albumin [Mass/Vol] 2.3 g/dL Low 3.4 - 4.8 g/dL [facility] ALP [Catalytic activity/Vol] 135 U/L 40 - 150 U/L [facility] ALT [Catalytic activity/Vol] 16 U/L NINF - 30 U/L [facility] Anion gap [Moles/Vol] 11 mmol/L 3 - 13 mmol/L [facility] AST [Catalytic activity/Vol] 27 U/L NINF - 34 U/L [facility] Bilirubin [Mass/Vol] 0.6 mg/dL NINF - 1.2 mg/dL [facility] Calcium [Mass/Vol] 9 mg/dL 8.8 - 10. 0 mg/dL [facility] Chloride [Moles/Vol] 99 mmol/L 98 - 10 7 mmol/L [facility] CO2 [Moles/Vol] 28 mmol/L 23 - 31 mmol/L [facility] Creatinine [Mass/Vol] 1.93 mg/dL High 0.57 - 1.11 mg/dL [facility] GFR/1.73 sq M.predicted (S/P/Bld) [Vol rate/Area] 26.4 mL/min Low - PINF [facility] Glucose [Mass/Vol] 100 mg/dL 82 - 115 mg/dL [facility] Interpretation and review of laboratory results Abnormal [facility] Potassium [Moles/Vol] 3.5 mmol/L 3.5 - 5.1 mmol/L [facility] Protein [Mass/Vol] 6.7 g/dL 6.4 - 8.3 g/dL [facility] Sodium [Moles/Vol] 138 mmol/L 136 - 145 mmol/L [facility] Urea nitrogen [Mass/Vol] 19 mg/dL 9 - 23 mg/dL [facility] Consulton 06-14-2025 Consult Normal [facility] ECG 12-LEADon 06-14-2025 ECG 12-LEAD IMPRESSION: Sinus rhythm Atrial premature complex Left bundle branch block Compared to ECG 06/01/2025 11:15:32 No significant changes Electronically Signed On 06-14-2025 21:31:38 EDT by Grayson Haywood Normal [facility] Laboratory - Chemistry and C hemistry - challengeon 06-14-2025 Glucose [Mass/Vol] 106 mg/dL High 70 - 100 mg/dL [facility] TSH Qn 3.23 m[IU]/L [facility] Glucose [Mass/Vol] 100 mg/dL 70 - 100 mg/dL [facility] Glucose [Mass/Vol] 161 mg/dL High 70 - 100 mg/dL [facility] Glucose [Mass/Vol] 126 mg/dL High 70 - 100 mg/dL [facility] Magnesium [Mass/Vol] 1.9 mg/dL 1.6 - 2 .6 mg/dL [facility] Glucose [Mass/Vol] 125 mg/dL High 70 - 100 mg/dL [facility] MAGNESIUMon 06-14-2025 Magnesium [Mass/Vol] 1.9 mg/dL Normal 1.6-2.6 [facility] Comment on above: Result Comment: DORIAN Knight COMMENTS:Higher values can be expected in females during menses. Performed By: #### L AB17, [id number] ####Graphic Coordinator: NATALIE GARCIA ([id number])[facility]ITAL[facility] TAAMRE[facility] ([facility])[address] [place] [address] [place] Magnesium [Mass/Vol]on 06-14 Interpretation and review of laboratory results Normal [facility] No Panel InformationOrdered By: Grayson Haywood on 06-14-2025 P [place] 0 degrees [facility] [employer] Work Phone: MA Interval 65 ms [facility] [employer] Work Phone: QRS [place] -11 degrees [facility] Work Phone: QRSD Interval 194 ms [facility] [employer] Work Phone: QT Interval 543 ms [facility] [employer] Work Phone: QTC Interval 552 ms [facility] [employer] Work Phone: T Wave [place] 188 degrees [facility] [employer] Work Phone: [facility] [employer] Work Phone: No Panel Informationon 06-14 CV EPIPHANY [facility] Interpretation and review of laboratory results Abnormal [facility] Interpretation and review of laboratory results Normal [facility] RADIOLOGY SYSTEM [facility] Radiology Study observation (narrative) [facility] Interpretation and review of laboratory results Abnormal [facility] Interpretation and review of laboratory results Abnormal [facility] Interpretation and review of laboratory results Abnormal [facility] Nursing Noteon 06-14-2025 Nursing Note Normal [facility] Progress Noteon 06-14-2025 Progress Note Normal [facility] Progress Note Normal [facility] Progress Note Normal [facility] Progress Note Normal [facility] Progress Note Normal [facility] THYROID STIMULATING HORMONEo n 06-14-2025 THYROID STIMULATING HORMONE 3.23 uIU/mL Normal 0.35-4.94 [facility] Comment on above: Performed By: #### L [id number] ####Graphic Coordinator: NATALIE GARCIA ([id number])[facility] [place] (SBHLAB)[address] [place] [address] TSH Qnon 06-14-2025 Interpretation and review of laboratory results Normal [facility] Vital signsOrdered By: Angelia Haywood on 06-14-2025 Heart rate 63 /min bpm [facility] Work Phone: [phone] 06-13-2025 [phone] Faxed OPAT to [employer] [facility]. OPAT not received. Emailed OPAT to [email or web address] m as requested. Normal [facility] [id number] Normal [facility] Bacteria identified Aer cx N om (Unsp spec)Ordered By: Rachel Schmitt on 06-13-2025 Gram Stain Result Many Polymorphonuclear leukocytes per low power field [facility] Gram Stain Result No organisms seen [facility] Interpretation and review of laboratory results Abnormal [facility] CBC W Auto Differential pane l (Bld)on 06-13-2025 Basophils (Bld) [#/Vol] 0.1 10*3/uL 0.0 - 0.2 10*3/uL [facility] Basophils/100 WBC (Bld) 0.8 % 0.0 - 2.0 % [facility] Eosinophils (Bld) [#/Vol] 0.2 10*3/uL 0.0 - 0.5 10*3/uL [facility] Eosinophils/100 WBC (Bld) 2.9 % 0.0 - 6.0 % [facility] Erythrocyte distribution width (RBC) [Ratio] 17.8 % High 11.5 - 15.0 % [facility] Hematocrit (Bld) [Volume fraction] 26.6 % Low 35.0 - 47.0 % [facility] Hemoglobin (Bld) [Mass/Vol] 8.4 g/dL Low 11.7 - 16.0 g/dL [facility] Immature granulocytes (Bld) [#/Vol] 0 10*3/uL NINF - 0.1 10*3/uL [facility] Immature granulocytes/100 WBC (Bld) 0.4 % 0.0 - 2.0 % [facility] Interpretation and review of laboratory results Abnormal [facility] Lymphocytes (Bld) [#/Vol] 1.1 10*3/uL 1.0 - 4.3 10*3/uL [facility] Lymphocytes/100 WBC (Bld) 15.5 % 15.0 - 45.0 % [facility] MCH (RBC) [Entitic mass] 26.3 pg 26.0 - 34.0 pg [facility] MCHC (RBC) [Mass/Vol] 31.6 % 30.5 - 36.0 % [facility] MCV (RBC) [Entitic vol] 83.4 fL 77.0 - 99.0 fL [facility] Monocytes (Bld) [#/Vol] 0.7 10*3/uL 0.0 - 0.9 10*3/uL [facility] Monocytes/100 WBC (Bld) 10.1 % 5.0 - 13.0 % [facility] Neutrophils (Bld) [#/Vol] 5 10*3/uL 1.8 - 7.5 10*3/uL [facility] Neutrophils/100 WBC (Bld) 70.3 % 38.0 - 82.0 % [facility] Nucleated RBC/100 WBC (Bld) [Ratio] 0 % [facility] Platelet mean volume (Bld) [Entitic vol] 9.5 fL 9.0 - 12.7 fL [facility] Platelets (Bld) [#/Vol] 235 10*3/uL 140 - 440 10*3/uL [facility] RBC (Bld) [#/Vol] 3.19 10*6/uL Low 3.80 - 5.2 0 10*6/uL [facility] WBC (Bld) [#/Vol] 7.2 10*3/uL 3.6 - 10.7 10*3/uL [facility] CBC WITH AUTO DIFFERENTIALon 06-13-2025 Basophils (Bld) [#/Vol] 0.1 10*3/uL Normal 0.0-0.2 [facility] Comment on above: Performed By: #### L [id number] ####Graphic Coordinator: NATALIE GARCIA ([id number])[facility] [place] (SBHLAB)[address] Basophils/100 WBC (Bld) 0.8 % Normal 0.0-2.0 [facility] Comment on above: Performed By: #### L [id number] ####Graphic Coordinator: NATALIE GARCIA ([id number])[facility] [place] (SB[facility])[address] Eosinophils (Bld) [#/Vol] 0.2 10*3/uL Normal 0.0-0.5 [facility] Comment on above: Performed By: #### L [id number] ####Graphic Coordinator: NATALIE GARCIA ([id number])[facility] (SBHLAB)[address] Eosinophils/100 WBC (Bld) 2.9 % Normal 0.0-6.0 [facility] Comment on above: Performed By: #### L [id number] ####Graphic Coordinator: NATALIE GARCIA ([id number])[facility] [place] (SBHLAB)[address] [place] [address] Erythrocyte distribution width (RBC) [Ratio] 17.8 % High 11.5-15.0 [facility] Comment on above: Performed By: #### L [id number] ####Graphic Coordinator: NATALIE GARCIA ([id number])[facility] (SBHLAB)[address] [place] [address] Hematocrit (Bld) [Volume fraction] 26.6 % Low 35.0-47.0 [facility] Comment on above: Performed By: #### L [id number] ####Graphic Coordinator: NATALIE GARCIA ([id number])[facility] [place] (SB[facility])[address] [place] [address] Hemoglobin (Bld) [Mass/Vol] 8.4 g/dL Low 11.7-16.0 [facility] Comment on above: Performed By: #### L [id number] ####Graphic Coordinator: NATALIE GARCIA ([id number])[facility] [place] (SB[facility])[address] IMMATURE GRANS % 0.4 % Normal 0.0-2.0 [facility] Comment on above: Performed By: #### L [id number] ####Graphic Coordinator: NATALIE GARCIA ([id number])[facility] (SBHLAB)[address] IMMATURE GRANS ABSOLUTE 0.0 10*3/uL Normal <0.1 [facility] Comment on above: Performed By: #### L [id number] ####Graphic Coordinator: NATALIE GARCIA ([id number])[facility] (SBHLAB)[address] Lymphocytes (Bld) [#/Vol] 1.1 10*3/uL Normal 1.0-4.3 [facility] Comment on above: Performed By: #### L [id number] ####Graphic Coordinator: NATALIE GARCIA ([id number])[facility] (SBHLAB)[address] Lymphocytes/100 WBC (Bld) 15.5 % Normal 15.0-45.0 [facility] Comment on above: Performed By: #### L [id number] ####Graphic Coordinator: NATALIE GARCIA ([id number])[facility] MCH (RBC) [Entitic mass] 26.3 pg Normal 26.0-34.0 [facility] Comment on above: Performed By: #### L [id number] ####Graphic Coordinator: NATALIE GARCIA ([id number])[facility] MCHC 31.6 % Normal 30.5-36.0 [facility] Comment on above: Performed By: #### L [id number] ####Graphic Coordinator: NATALIE GARCIA ([id number])[facility] MCV (RBC) [Entitic vol] 83.4 fL Normal 77.0-99.0 [facility] Comment on above: Performed By: #### L [id number] ####Graphic Coordinator: NATALIE GARCIA ([id number])[facility] [place] (SBHLAB)[address] Monocytes (Bld) [#/Vol] 0.7 10*3/uL Normal 0.0-0.9 [facility] Comment on above: Performed By: #### L [id number] ####Graphic Coordinator: NATALIE GARCIA ([id number])[facility] [place] (SB[facility])[address] Monocytes/100 WBC (Bld) 10.1 % Normal 5.0-13.0 [facility] Comment on above: Performed By: #### L [id number] ####Graphic Coordinator: NATALIE GARCIA ([id number])[facility] [place] (SBHLAB)[address] NEUTROPHILS ABSOLUTE 5.0 10*3/uL Normal 1.8-7.5 [facility] Comment on above: Performed By: #### L [id number] ####Graphic Coordinator: NATALIE GARCIA ([id number])[facility] [place] (SB[facility]AB)[address] Neutrophils/100 WBC (Bld) 70.3 % Normal 38.0-82.0 [facility] Comment on above: Performed By: #### L [id number] ####Graphic Coordinator: NATALIE GARCIA ([id number])[facility] [place] (SB[facility]AB)[address] NRBC 0.0 /100 WBCs Normal 0.0-2.0 [facility] Comment on above: Performed By: #### L [id number] ####Graphic Coordinator: NATALIE GARCIA ([id number])[facility] [place] (SB[facility])[address] Platelet mean volume (Bld) [Entitic vol] 9.5 fL Normal 9.0-12.7 [facility] Comment on above: Performed By: #### L [id number] ####Graphic Coordinator: NATALIE GARCIA ([id number])[facility] (SBHLAB)[address] Platelets (Bld) [#/Vol] 235 10*3/uL Normal 140-440 [facility] Comment on above: Performed By: #### L [id number] ####Graphic Coordinator: NATALIE GARCIA ([id number])[facility] (SBHL[facility])[address] RBC (Bld) [#/Vol] 3.19 10*6/uL Low 3.80-5.20 [facility] Comment on above: Performed By: #### L [id number] ####Graphic Coordinator: NATALIE GARCIA ([id number])[facility] (SBHLAB)[address] [place] [address] WBC (Bld) [#/Vol] 7.2 10*3/uL Normal 3.6-10.7 [facility] Comment on above: Performed By: #### L [id number] ####Graphic Coordinator: NATALIE GARCIA ([id number])[facility] (SBHLAB)[address] [place] [address] COMPREHENSIVE METABOLIC PANE Florentin 06-13-2025 Albumin [Mass/Vol] 2.3 g/dL Low 3.4-4.8 [facility] Comment on above: Performed By: #### L AB17, [id number] ####Graphic Coordinator: NATALIE GARCIA ([id number])[facility] (SBHLAB)[address] ALP [Catalytic activity/Vol] 127 U/L Normal 40-150 [facility] Comment on above: Performed By: #### L AB17, [id number] ####Graphic Coordinator: NATALIE GARCIA ([id number])[facility] [place] (SBHLAB)[address] ALT [Catalytic activity/Vol] 12 U/L Normal <30 [facility] Comment on above: Performed By: #### L AB17, [id number] ####Graphic Coordinator: NATALIE GARCIA ([id number])[facility] [place] (SB[facility])[address] Anion gap [Moles/Vol] 12 mmol/L Normal 3-13 [facility] Comment on above: Performed By: #### L AB17, [id number] ####Graphic Coordinator: NATALIE GARCIA ([id number])[facility] [place] (SBHLAB)[address] AST [Catalytic activity/Vol] 22 U/L Normal <34 [facility] Comment on above: Performed By: #### L AB17, [id number] ####Graphic Coordinator: NATALIE GARCIA ([id number])[facility] [place] (SB[facility]AB)[address] Bilirubin [Mass/Vol] 0.8 mg/dL Normal <1.2 [facility] Comment on above: Performed By: #### L AB17, [id number] ####Graphic Coordinator: NATALIE GARCIA ([id number])[facility] [place] (SBHLAB)[address] Calcium [Mass/Vol] 9.3 mg/dL Normal 8.8-10.0 [facility] Comment on above: Performed By: #### L AB17, [id number] ####Graphic Coordinator: NATALIE GARCIA ([id number])[facility] [place] (SBHLAB)155 [place] [address] [place] Chloride [Moles/Vol] 97 mmol/L Low 98-107 [facility] Comment on above: Performed By: #### L AB17, [id number] ####Graphic Coordinator: NATALIE GARCIA ([id number])[facility] [place] (SBHLAB)155 [place] [address] [place] CO2 [Moles/Vol] 25 mmol/L Normal 23-31 [facility] Comment on above: Performed By: #### L AB17, [id number] ####Graphic Coordinator: NATALIE GARCIA ([id number])[facility]ITAL[facility] [place] (SBHLAB)[address] Creatinine [Mass/Vol] 3.37 mg/dL High 0.57-1.11 [facility] Comment on above: Performed By: #### L AB17, [id number] ####Graphic Coordinator: NATALIE GARCIA ([id number])[facility] [place] (SBHLAB)[address] GLOMERULAR FILTRATION RATE ML/MIN/1.73 SQ M.PREDICTED 13.5 mL/min/1.73m*2 Low >60.0 [facility] Comment on above: Result Comment: Calc ulation based on the Chronic Kidney Disease Epidemiology Collaboration (CKD-EPI) equation refit without adjustment for race Performed By: #### L AB17, [id number] ####Graphic Coordinator: NATALIE GARCIA ([id number])[facility]ITAL[facility] [place] (SBHLAB)[address] Glucose [Mass/Vol] 56 mg/dL Low 82-115 [facility] Comment on above: Performed By: #### L AB17, [id number] ####Graphic Coordinator: NATALIE GARCIA ([id number])[facility] (SBHLAB)[address] Potassium [Moles/Vol] 3.5 mmol/L Normal 3.5-5.1 [facility] Comment on above: Result Comment: [facility] potassium values may be up to 0.5 mmol/L lower than serum values. Performed By: #### L AB17, [id number] ####Graphic Coordinator: NATALIE GARCIA ([id number])[facility] (SBHLAB)[address] Protein [Mass/Vol] 6.8 g/dL Normal 6.4-8.3 [facility] Comment on above: Performed By: #### L AB17, [id number] ####Graphic Coordinator: NATALIE JOSE ([id number])[facility]ITAL[facility] [place] (SBHLAB)[address] Sodium [Moles/Vol] 134 mmol/L Low 136-145 [facility] Comment on above: Performed By: #### L AB17, [id number] ####Graphic Coordinator: NATALIE SIMONDANIEL ([id number])[facility]ITAL[facility] [place] (SBHLAB)[address] Urea nitrogen [Mass/Vol] 39 mg/dL High 9-23 [facility] Comment on above: Performed By: #### L AB17, [id number] ####Graphic Coordinator: NATALIEMELODIE GARCIA ([id number])[facility]ITAL[facility] [place] (SBHLAB)[address] Comprehensive metabolic 1998 panelon 06-13-2025 Albumin [Mass/Vol] 2.3 g/dL Low 3.4 - 4.8 g/dL [facility] ALP [Catalytic activity/Vol] 127 U/L 40 - 150 U/L [facility] ALT [Catalytic activity/Vol] 12 U/L NINF - 30 U/L [facility] Anion gap [Moles/Vol] 12 mmol/L 3 - 13 mmol/L [facility] AST [Catalytic activity/Vol] 22 U/L [facility] U/L [facility] Bilirubin [Mass/Vol] 0.8 mg/dL NINF - 1.2 mg/dL [facility] Calcium [Mass/Vol] 9.3 mg/dL 8.8 - 10. 0 mg/dL [facility] Chloride [Moles/Vol] 97 mmol/L Low 98 - 10 7 mmol/L [facility] CO2 [Moles/Vol] 25 mmol/L 23 - 31 mmol/L [facility] Creatinine [Mass/Vol] 3.37 mg/dL High 0.57 - 1.11 mg/dL [facility] GFR/1.73 sq M.predicted (S/P/Bld) [Vol rate/Area] 13.5 mL/min Low - PINF [facility] Glucose [Mass/Vol] 56 mg/dL Low 82 - 115 mg/dL [facility] Interpretation and review of laboratory results Abnormal [facility] Potassium [Moles/Vol] 3.5 mmol/L 3.5 - 5.1 mmol/L [facility] Protein [Mass/Vol] 6.8 g/dL 6.4 - 8.3 g/dL [facility] Sodium [Moles/Vol] 134 mmol/L Low 136 - 145 mmol/L [facility] Urea nitrogen [Mass/Vol] 39 mg/dL High 9 - 23 mg/dL [facility] Laboratory - Chemistry and C hemistry - challengeon 06-13-2025 Glucose [Mass/Vol] 108 mg/dL High 70 - 100 mg/dL [facility] Glucose [Mass/Vol] 108 mg/dL High 70 - 100 mg/dL [facility] Glucose [Mass/Vol] 107 mg/dL High 70 - 100 mg/dL [facility] Glucose [Mass/Vol] 122 mg/dL High 70 - 100 mg/dL [facility] Magnesium [Mass/Vol] 2 mg/dL 1.6 - 2 .6 mg/dL [facility] Glucose [Mass/Vol] 67 mg/dL Low 70 - 100 mg/dL [facility] Glucose [Mass/Vol] 123 mg/dL High 70 - 100 mg/dL [facility] Laboratory - Microbiology an d Antimicrobial susceptibilityOrdered By: Rachel Schmtit on 06-13-2025 Bacteria identified Aer cx Nom (Unsp spec) Few respiratory dave present. [facility] Bacteria identified Aer cx Nom (Unsp spec) Rare Pseudomonas aeruginosa Abnormal [facility] MAGNESIUMon 06-13-2025 Magnesium [Mass/Vol] 2.0 mg/dL Normal 1.6-2.6 [facility] Comment on above: Result Comment: DORIAN Knight COMMENTS:Higher values can be expected in females during menses. Performed By: #### L AB17, [id number] ####Graphic Coordinator: NATALIE GARCIA ([id number])[facility] ([facility])[address] [place] [address] Magnesium [Mass/Vol]on 06-13 Interpretation and review of laboratory results Normal [facility] No Panel Informationon 06-13 Interpretation and review of laboratory results Abnormal [facility] Interpretation and review of laboratory results Abnormal [facility] Interpretation and review of laboratory results Abnormal [facility] Interpretation and review of laboratory results Abnormal [facility] Interpretation and review of laboratory results Abnormal [facility] Interpretation and review of laboratory results Abnormal [facility] Nursing Noteon 06-13-2025 Nursing Note Normal [facility] Nursing Note Normal [facility] Progress Noteon 06-13-2025 Progress Note Normal [facility] Progress Note Normal [facility] Progress Note Normal [facility] Progress Note Normal [facility] Progress [facility] Normal [facility] [id number] 06-12-2025 [id number] Sent updated notes t o return back to [facility] via [employer] per TCC request. Await review and response regarding ability to accept. TCC notified. Normal [facility] [id number] Normal [facility] Bacteria identified Aer cx N om (Lower resp)Ordered By: Uma Mcgarry on 06-12-2025 Gram Stain Result Many Polymorphonuclear leukocytes per low power field Abnormal [facility] Gram Stain Result Rare Epithelial cell s per low power field Abnormal [facility] Gram Stain Result Negative Abnormal [facility] ealt Gram Stain Result Positive Abnormal [facility] ealth Interpretation and review of laboratory results Abnormal [facility] Bacteria identified Anaer cx Nom (Unsp spec)Ordered By: Brooklyn Ramos on 06-12-2025 Interpretation and review of laboratory results Normal [facility] Bacteria identified Cx Nom ( Bld)on 06-12-2025 Interpretation and review of laboratory results Normal [facility] CBC (HEMOGRAM)on 06-12-2025 Erythrocyte distribution width (RBC) [Ratio] 18.3 % High 11.5-15.0 [facility] Comment on above: Performed By: #### L [id number] ####Graphic Coordinator: NATALIE GARCIA ([id number])[place] (SBHLAB)[address] Hematocrit (Bld) [Volume fraction] 25.0 % Low 35.0-47.0 [facility] Comment on above: Performed By: #### L [id number] ####Graphic Coordinator: NATALIE GARCIA ([id number])[facility] [facility]ONTENEGROLa[place] (SBHLAB)[address] Hemoglobin (Bld) [Mass/Vol] 7.9 g/dL Low 11.7-16.0 [facility] Comment on above: Performed By: #### L [id number] ####Graphic Coordinator: NATALIE GARCIA ([id number])[facility] [place] (SBHLAB)[address] MCH (RBC) [Entitic mass] 26.5 pg Normal 26.0-34.0 [facility] Comment on above: Performed By: #### L [id number] ####Graphic Coordinator: NATALIE GARCIA ([id number])[facility]ITAL[facility] MONTENEGROLaurel (SBHLAB)[address] MCHC 31.6 % Normal 30.5-36.0 [facility] Comment on above: Performed By: #### L [id number] ####Graphic Coordinator: NATALIE GARCIA ([id number])[facility]ITALJos[facility] Miguel [place] (SBHLAB)[address] [place] [address] MCV (RBC) [Entitic vol] 83.9 fL Normal 77.0-99.0 [facility] Comment on above: Performed By: #### L [id number] ####Graphic Coordinator: NATALIE GARCIA ([id number])[facility]ITAL[facility] Miguel REHMANMAGNUSN (SBHLAB)[address] Platelet mean volume (Bld) [Entitic vol] 9.6 fL Normal 9.0-12.7 [facility] Comment on above: Performed By: #### L [id number] ####Graphic Coordinator: NATALIE GARCIA ([id number])[facility]ITALJosé Miguel [facility]BGALLUP [facility]DI[facility] MEDICAL CENTERLaurel (SBHLAB)[address] Platelets (Bld) [#/Vol] 224 10*3/uL Normal 140-440 [facility] Comment on above: Performed By: #### L [id number] ####Graphic Coordinator: NATALIE GARCIA ([id number])[facility]ITALJosé Miguel [facility] (SBHLAB)[address] [place] [address] RBC (Bld) [#/Vol] 2.98 10*6/uL Low 3.80-5.20 [facility] Comment on above: Performed By: #### L [id number] ####Graphic Coordinator: NATALIE GARCIA ([id number])[facility] (SBHLAB)[address] [place] [address] WBC (Bld) [#/Vol] 6.9 10*3/uL Normal 3.6-10.7 [facility] Comment on above: Performed By: #### L [id number] ####Graphic Coordinator: NATALIE GARCIA ([id number])[facility] (HLAB)[address] [place] [address] CBC panel Auto (Bld)on 06-12 Erythrocyte distribution width (RBC) [Ratio] 18.3 % High 11.5 - 15.0 % [facility] Hematocrit (Bld) [Volume fraction] 25 % Low 35.0 - 47.0 % [facility] Hemoglobin (Bld) [Mass/Vol] 7.9 g/dL Low 11.7 - 16.0 g/dL [facility] Interpretation and review of laboratory results Abnormal [facility] MCH (RBC) [Entitic mass] 26.5 pg 26.0 - 34.0 pg [facility] MCHC (RBC) [Mass/Vol] 31.6 % 30.5 - 36.0 % [facility] MCV (RBC) [Entitic vol] 83.9 fL 77.0 - 99.0 fL [facility] Platelet mean volume (Bld) [Entitic vol] 9.6 fL 9.0 - 12.7 fL [facility] Platelets (Bld) [#/Vol] 224 10*3/uL 140 - 440 10*3/uL [facility] RBC (Bld) [#/Vol] 2.98 10*6/uL Low 3.80 - 5.2 0 10*6/uL [facility] WBC (Bld) [#/Vol] 6.9 10*3/uL 3.6 - 10.7 10*3/uL [facility] COMPREHENSIVE METABOLIC PANE Florentin 06-12-2025 Albumin [Mass/Vol] 2.2 g/dL Low 3.4-4.8 [facility] Comment on above: Performed By: #### L AB17 ####Graphic Coordinator: NATALIE GARCIA ([id number])[facility] [place] (SBHLAB)[address] ALP [Catalytic activity/Vol] 115 U/L Normal 40-150 [facility] Comment on above: Performed By: #### L AB17 ####Graphic Coordinator: NATALIE GARCIA ([id number])[facility] (SBHLAB)[address] ALT [Catalytic activity/Vol] 9 U/L Normal <30 [facility] Comment on above: Performed By: #### L AB17 ####Graphic Coordinator: NATALIE GARCIA ([id number])[facility]BGALLUP [facility]ERN (SBHLAB)[address] Anion gap [Moles/Vol] 12 mmol/L Normal 3-13 [facility] Comment on above: Performed By: #### L AB17 ####Graphic Coordinator: NATALIE GARCIA ([id number])[facility] (SBHLAB)[address] AST [Catalytic activity/Vol] 21 U/L Normal <34 [facility] Comment on above: Performed By: #### L AB17 ####Graphic Coordinator: NATALIE GARCIA ([id number])[facility] (SBHLAB)[address] Bilirubin [Mass/Vol] 0.7 mg/dL Normal <1.2 [facility] Comment on above: Performed By: #### L AB17 ####Graphic Coordinator: NATALIE GARCIA ([id number])[facility] [place] (SBHLAB)[address] Calcium [Mass/Vol] 8.7 mg/dL Low 8.8-10.0 [facility] Comment on above: Performed By: #### L AB17 ####Graphic Coordinator: NATALIE GARCIA ([id number])[facility] [place] (SBHLAB)155 [place] [address] [place] Chloride [Moles/Vol] 98 mmol/L Normal 98-107 [facility] Comment on above: Performed By: #### L AB17 ####Graphic Coordinator: NATALIE GARCIA ([id number])[facility] [place] (SBHLAB)[address] CO2 [Moles/Vol] 27 mmol/L Normal 23-31 [facility] Comment on above: Performed By: #### L AB17 ####Graphic Coordinator: NATALIE GARCIA ([id number])[facility] [place] (SBHLAB)[address] Creatinine [Mass/Vol] 2.53 mg/dL High 0.57-1.11 [facility] Comment on above: Performed By: #### L AB17 ####Graphic Coordinator: NATALIE GARCIA ([id number])[facility] [place] (SBHLAB)155 [place] [address] [place] GLOMERULAR FILTRATION RATE ML/MIN/1.73 SQ M.PREDICTED 19.1 mL/min/1.73m*2 Low >60.0 [facility] Comment on above: Result Comment: Calc ulation based on the Chronic Kidney Disease Epidemiology Collaboration (CKD-EPI) equation refit without adjustment for race Performed By: #### L AB17 ####Graphic Coordinator: NATALIE GARCIA ([id number])[facility] [place] (SBHLAB)155 [place] [address] [place] Glucose [Mass/Vol] 165 mg/dL High 82-115 [facility] Comment on above: Performed By: #### L AB17 ####Graphic Coordinator: NATALIE GARCIA ([id number])[facility] (SBHLAB)[address] Potassium [Moles/Vol] 3.7 mmol/L Normal 3.5-5.1 [facility] Comment on above: Result Comment: [facility] potassium values may be up to 0.5 mmol/L lower than serum values. Performed By: #### L AB17 ####Graphic Coordinator: NATALIE GARCIA ([id number])[facility]BGALLUP [facility] (SBHLAB)[address] Protein [Mass/Vol] 6.4 g/dL Normal 6.4-8.3 [facility] Comment on above: Performed By: #### L AB17 ####Graphic Coordinator: NATALIE GARCIA ([id number])[facility] (SBHLAB)[address] [place] [address] Sodium [Moles/Vol] 137 mmol/L Normal 136-145 [facility] Comment on above: Performed By: #### L AB17 ####Graphic Coordinator: NATALIE GARCIA ([id number])[facility] (SBHLAB)[address] [place] [address] Urea nitrogen [Mass/Vol] 26 mg/dL High 9-23 [facility] Comment on above: Performed By: #### L AB17 ####Graphic Coordinator: NATALIE GARCIA ([id number])[facility] (SBHLAB)[address] [place] [address] Comprehensive metabolic 1998 panelOrdered By: Armando Viramontes on 06-12-2025 Albumin [Mass/Vol] 2.2 g/dL Low 3.4 - 4.8 g/dL [facility] ALP [Catalytic activity/Vol] 115 U/L 40 - 150 U/L [facility] ALT [Catalytic activity/Vol] 9 U/L NINF - 30 U/L [facility] Anion gap [Moles/Vol] 12 mmol/L 3 - 13 mmol/L [facility] AST [Catalytic activity/Vol] 21 U/L NINF - 34 U/L [facility] Bilirubin [Mass/Vol] 0.7 mg/dL NINF - 1.2 mg/dL [facility] Calcium [Mass/Vol] 8.7 mg/dL Low 8.8 - 10. 0 mg/dL [facility] Chloride [Moles/Vol] 98 mmol/L 98 - 10 7 mmol/L [facility] CO2 [Moles/Vol] 27 mmol/L 23 - 31 mmol/L [facility] Creatinine [Mass/Vol] 2.53 mg/dL High 0.57 - 1.11 mg/dL [facility] GFR/1.73 sq M.predicted (S/P/Bld) [Vol rate/Area] 19.1 mL/min Low - PINF [facility] Glucose [Mass/Vol] 165 mg/dL High 82 - 115 mg/dL [facility] Interpretation and review of laboratory results Abnormal [facility] Potassium [Moles/Vol] 3.7 mmol/L 3.5 - 5.1 mmol/L [facility] Protein [Mass/Vol] 6.4 g/dL 6.4 - 8.3 g/dL [facility] Sodium [Moles/Vol] 137 mmol/L 136 - 145 mmol/L [facility] Urea nitrogen [Mass/Vol] 26 mg/dL High 9 - 23 mg/dL [facility] Laboratory - Chemistry and C hemistry - challengeon 06-12-2025 Glucose [Mass/Vol] 157 mg/dL High 70 - 100 mg/dL [facility] Glucose [Mass/Vol] 147 mg/dL High 70 - 100 mg/dL [facility] Glucose [Mass/Vol] 165 mg/dL High 70 - 100 mg/dL [facility] Glucose [Mass/Vol] 171 mg/dL High 70 - 100 mg/dL [facility] Glucose [Mass/Vol] 166 mg/dL High 70 - 100 mg/dL [facility] Laboratory - Microbiology an d Antimicrobial susceptibilityOrdered By: Brooklyn Ramos on 06-12-2025 Bacteria identified Anaer cx Nom (Unsp spec) No growth at 5 days [facility] Laboratory - Microbiology an d Antimicrobial susceptibilityon 06-12-2025 Bacteria identified Cx Nom (Bld) No growth at 5 days [facility] Laboratory - Microbiology an d Antimicrobial susceptibilityOrdered By: Uma Mcgarry on 06-12-2025 Bacteria identified Aer cx Nom (Lower resp) Few respiratory dave present. [facility] Bacteria identified Aer cx Nom (Lower resp) Moderate Serratia marcescens Abnormal [facility] Bacteria identified Aer cx Nom (Lower resp) Moderate Stenotrophomonas maltophilia Abnormal [facility] Bacteria identified Aer cx Nom (Lower resp) Moderate Pseudomonas aeruginosa Abnormal [facility] No Panel Informationon 06-12 Interpretation and review of laboratory results Abnormal [facility] Interpretation and review of laboratory results Abnormal [facility] Interpretation and review of laboratory results Abnormal [facility] Radiology Study observation (narrative) [facility] Interpretation and review of laboratory results Abnormal [facility] Interpretation and review of laboratory results Abnormal [facility] No Panel InformationOrdered By: Yamil Newby on 06-12-2025 [facility] Work Phone: Nursing Noteon 06-12-2025 Nursing Note Normal [facility] Nursing Note Patient arrived from 222 on vent to trach, verbal consent was obtained. Patient was placed supine on exam table prepped and draped in sterile fashion. Telemetry monitors placed, vitals monitored. Normal [facility] Progress Noteon 06-12-2025 Progress Note Normal [facility] Progress Note Normal [facility] Progress [facility] Normal [facility] Progress [facility] Normal [facility] [facility] [id number] 06-11-2025 [id number] Normal [facility] Bacteria identified Aer cx N om (Unsp spec)on 06-11-2025 Gram Stain Result Few Polymorphonuclea r leukocytes per low power field [facility] Gram Stain Result No organisms seen [facility] CBC (HEMOGRAM)on 06-11-2025 Erythrocyte distribution width (RBC) [Ratio] 18.0 % High 11.5-15.0 [facility] Comment on above: Performed By: #### L [id number] ####Graphic Coordinator: NATALIE GARCIA ([id number])[facility] M[facility]IS[facility] ([facility])[address] [place] [address] Hematocrit (Bld) [Volume fraction] 25.8 % Low 35.0-47.0 [facility] Comment on above: Performed By: #### L [id number] ####Graphic Coordinator: NATALIE GARCIA ([id number])[place] (SBHLAB)[address] Hemoglobin (Bld) [Mass/Vol] 8.3 g/dL Low 11.7-16.0 [facility] Comment on above: Performed By: #### L [id number] ####Graphic Coordinator: NATALIE GARCIA ([id number])[facility]OSPITALJos[facility] Miguel REHMANGALLUP INDI[facility] MEDICAL CENTERLaurel (SBHLAB)[address] MCH (RBC) [Entitic mass] 26.3 pg Normal 26.0-34.0 [facility] Comment on above: Performed By: #### L [id number] ####Graphic Coordinator: NATALIE GARCIA ([id number])[facility] HOSPITALJosé Miguel REHM[facility]ALL[facility] CENTERLaurel (SBHLAB)[address] MCHC 32.2 % Normal 30.5-36.0 [facility] Comment on above: Performed By: #### L [id number] ####Graphic Coordinator: NATALIE GARCIA ([id number])[facility]OS[facility]ITALJosé Miguel REHMANGALL[facility] CENTERLaurel (SBHLAB)[address] MCV (RBC) [Entitic vol] 81.6 fL Normal 77.0-99.0 [facility] Comment on above: Performed By: #### L [id number] ####Graphic Coordinator: NATALIE GARCIA ([id number])[facility]OSPITALJosé Miguel REHMANELIAS (SBHLAB)[address] Platelet mean volume (Bld) [Entitic vol] 9.5 fL Normal 9.0-12.7 [facility] Comment on above: Performed By: #### L [id number] ####Graphic Coordinator: NATALIE GARCIA ([id number])[facility]OSPITALJosé Miguel REHM[facility] CENTERLaurel (SBHLAB)[address] [place] [address] [place] Platelets (Bld) [#/Vol] 235 10*3/uL Normal 140-440 [facility] Comment on above: Performed By: #### L [id number] ####Graphic Coordinator: NATALIE CALVERTCER ([id number])[facility]OSPITALJosé Miguel [facility] CENTERLaurel (SBHLAB)[address] RBC (Bld) [#/Vol] 3.16 10*6/uL Low 3.80-5.20 [facility] Comment on above: Performed By: #### L [id number] ####Graphic Coordinator: NATALIE DENISETRICIA ([id number])[facility] (SBHLAB)[address] [place] [address] WBC (Bld) [#/Vol] 7.4 10*3/uL Normal 3.6-10.7 [facility] Comment on above: Performed By: #### L [id number] ####Graphic Coordinator: NATALIE GARCIA ([id number])[facility] (SBHLAB)[address] [place] [address] CBC panel Auto (Bld)on 06-11 Erythrocyte distribution width (RBC) [Ratio] 18 % High 11.5 - 15.0 % [facility] Hematocrit (Bld) [Volume fraction] 25.8 % Low 35.0 - 47.0 % [facility] Hemoglobin (Bld) [Mass/Vol] 8.3 g/dL Low 11.7 - 16.0 g/dL [facility] Interpretation and review of laboratory results Abnormal [facility] MCH (RBC) [Entitic mass] 26.3 pg 26.0 - 34.0 pg [facility] MCHC (RBC) [Mass/Vol] 32.2 % 30.5 - 36.0 % [facility] MCV (RBC) [Entitic vol] 81.6 fL 77.0 - 99.0 fL [facility] Platelet mean volume (Bld) [Entitic vol] 9.5 fL 9.0 - 12.7 fL [facility] Platelets (Bld) [#/Vol] 235 10*3/uL 140 - 440 10*3/uL [facility] RBC (Bld) [#/Vol] 3.16 10*6/uL Low 3.80 - 5.2 0 10*6/uL [facility] WBC (Bld) [#/Vol] 7.4 10*3/uL 3.6 - 10.7 10*3/uL [facility] COMPREHENSIVE METABOLIC PANE Florentin 06-11-2025 Albumin [Mass/Vol] 2.3 g/dL Low 3.4-4.8 [facility] Comment on above: Performed By: #### L AB17 ####Graphic Coordinator: NATALIE GARCIA ([id number])[facility] HOSPITALA [place] (SBHLAB)[address] ALP [Catalytic activity/Vol] 117 U/L Normal 40-150 [facility] Comment on above: Performed By: #### L AB17 ####Graphic Coordinator: NATALIE GARCIA ([id number])[facility]OS[facility]ITALA [place] (SBHLAB)[address] ALT [Catalytic activity/Vol] 12 U/L Normal <30 [facility] Comment on above: Performed By: #### L AB17 ####Graphic Coordinator: NATALIE GARCIA ([id number])[facility]OSPITALA [place] (SBHLAB)[address] Anion gap [Moles/Vol] 11 mmol/L Normal 3-13 [facility] Comment on above: Performed By: #### L AB17 ####Graphic Coordinator: NATALIE GARCIA ([id number])[facility]ITALA [place] (SBHLAB)[address] AST [Catalytic activity/Vol] 26 U/L Normal <34 [facility] Comment on above: Performed By: #### L AB17 ####Graphic Coordinator: NATALIE GARCIA ([id number])[facility]ITALA [place] (SBHLAB)[address] Bilirubin [Mass/Vol] 0.8 mg/dL Normal <1.2 [facility] Comment on above: Performed By: #### L AB17 ####Graphic Coordinator: NATALIE GARCIA ([id number])[facility] HOSPITALJosé Miguel [place]GR[place] (SBHLAB)[address] Calcium [Mass/Vol] 9.2 mg/dL Normal 8.8-10.0 [facility] Comment on above: Performed By: #### L AB17 ####Graphic Coordinator: NATALIE GARCIA ([id number])[facility]OSPITALJosé Miguel REHMANGALLUP INDI[facility] MEDICAL CENTERN (SBHLAB)[address] Chloride [Moles/Vol] 99 mmol/L Normal 98-107 [facility] Comment on above: Performed By: #### L AB17 ####Graphic Coordinator: NATALIE GARCIA ([id number])[facility] (SBHLAB)[address] CO2 [Moles/Vol] 22 mmol/L Low 23-31 [facility] Comment on above: Performed By: #### L AB17 ####Graphic Coordinator: NATALIE GARCIA ([id number])[facility] (SBHLAB)[address] Creatinine [Mass/Vol] 4.10 mg/dL High 0.57-1.11 [facility] Comment on above: Performed By: #### L AB17 ####Graphic Coordinator: NATALIE GARCIA ([id number])[facility] (SBHLAB)[address] [place] [address] [place] GLOMERULAR FILTRATION RATE ML/MIN/1.73 SQ M.PREDICTED 10.7 mL/min/1.73m*2 Low >60.0 [facility] Comment on above: Result Comment: Calc ulation based on the Chronic Kidney Disease Epidemiology Collaboration (CKD-EPI) equation refit without adjustment for race Performed By: #### L AB17 ####Graphic Coordinator: NATALIE GARCIA ([id number])[facility] (SBHLAB)[address] [place] [address] [place] Glucose [Mass/Vol] 149 mg/dL High 82-115 [facility] Comment on above: Performed By: #### L AB17 ####Graphic Coordinator: NATALIE [id number])[facility]OSPITALJosé Miguel [facility] (SBHLAB)[address] Potassium [Moles/Vol] 3.9 mmol/L Normal 3.5-5.1 [facility] Comment on above: Result Comment: [facility] potassium values may be up to 0.5 mmol/L lower than serum values. Performed By: #### L AB17 ####Graphic Coordinator: NATALIE GARCIA ([id number])[facility]OSPITALA BARBGALLUP INDIAN MEDICAL CENTERN (SBHLAB)[address] Protein [Mass/Vol] 6.6 g/dL Normal 6.4-8.3 [facility] Comment on above: Performed By: #### L AB17 ####Graphic Coordinator: NATALIE GARCIA ([id number])[facility]OSPITALJosé Miguel [facility] (SBHLAB)[address] Sodium [Moles/Vol] 132 mmol/L Low 136-145 [facility] Comment on above: Performed By: #### L AB17 ####Graphic Coordinator: NATALIE GARCIA ([id number])[facility] (SBHLAB)[address] Urea nitrogen [Mass/Vol] 49 mg/dL High 9-23 [facility] Comment on above: Performed By: #### L AB17 ####Graphic Coordinator: NATALIE GARCIA ([id number])[facility] (SBHLAB)[address] [place] [address] Comprehensive metabolic 1998 panelon 06-11-2025 Albumin [Mass/Vol] 2.3 g/dL Low 3.4 - 4.8 g/dL [facility] ALP [Catalytic activity/Vol] 117 U/L 40 - 150 U/L [facility] ALT [Catalytic activity/Vol] 12 U/L NINF - 30 U/L [facility] Anion gap [Moles/Vol] 11 mmol/L 3 - 13 mmol/L [facility] AST [Catalytic activity/Vol] 26 U/L NINF - 34 U/L [facility] Bilirubin [Mass/Vol] 0.8 mg/dL NINF - 1.2 mg/dL [facility] Calcium [Mass/Vol] 9.2 mg/dL 8.8 - 10. 0 mg/dL [facility] Chloride [Moles/Vol] 99 mmol/L 98 - 10 7 mmol/L [facility] CO2 [Moles/Vol] 22 mmol/L Low 23 - 31 mmol/L [facility] Creatinine [Mass/Vol] 4.1 mg/dL High 0.57 - 1.11 mg/dL [facility] GFR/1.73 sq M.predicted (S/P/Bld) [Vol rate/Area] 10.7 mL/min Low - PINF [facility] Glucose [Mass/Vol] 149 mg/dL High 82 - 115 mg/dL [facility] Interpretation and review of laboratory results Abnormal [facility] Potassium [Moles/Vol] 3.9 mmol/L 3.5 - 5.1 mmol/L [facility] Protein [Mass/Vol] 6.6 g/dL 6.4 - 8.3 g/dL [facility] Sodium [Moles/Vol] 132 mmol/L Low 136 - 145 mmol/L [facility] Urea nitrogen [Mass/Vol] 49 mg/dL High 9 - 23 mg/dL [facility] Laboratory - Chemistry and C hemistry - challengeon 06-11-2025 Glucose [Mass/Vol] 192 mg/dL High 70 - 100 mg/dL [facility] Glucose [Mass/Vol] 199 mg/dL High 70 - 100 mg/dL [facility] Glucose [Mass/Vol] 139 mg/dL High 70 - 100 mg/dL [facility] Glucose [Mass/Vol] 163 mg/dL High 70 - 100 mg/dL [facility] Laboratory - Microbiology an d Antimicrobial susceptibilityon 06-11-2025 Bacteria identified Aer cx Nom (Unsp spec) No growth at 4 days [facility] No Panel Informationon 06-11 Interpretation and review of laboratory results Abnormal [facility] Interpretation and review of laboratory results Abnormal [facility] Interpretation and review of laboratory results Abnormal [facility] Interpretation and review of laboratory results Abnormal [facility] Nursing Noteon 06-11-2025 Nursing Note Normal [facility] Progress Noteon 06-11-2025 Progress Note Normal [facility] Progress Note Normal [facility] Progress Note Normal [facility] Progress Note Normal [facility] Progress Note Normal [facility] BLOOD TYPE AND SCREEN GELon 06-10-2025 ABO GROUPING A Normal [facility] Comment on above: Performed By: #### L [id number] ####Graphic Coordinator: NATALIE GARCIA ([id number])[facility] ([facility])[address] RH TYPE IN BLOOD Positive Normal [facility] Comment on above: Performed By: #### L [id number] ####Graphic Coordinator: NATALIE GARCIA ([id number])[facility] ([facility])[address] Blood type and Crossmatch pa yordy (Bld)on 06-10-2025 ABO group Nom (Bld) A [facility] Blood group antibody screen GEL Ql Negative [facility] D Ag Ql (RBC) Positive [facility] CBC (HEMOGRAM)on 06-10-2025 Erythrocyte distribution width (RBC) [Ratio] 19.1 % High 11.5-15.0 [facility] Comment on above: Performed By: #### L [id number] ####Graphic Coordinator: NATALIE GARCIA ([id number])[facility] ([facility])[address] [place] [address] Hematocrit (Bld) [Volume fraction] 22.4 % Low 35.0-47.0 [facility] Comment on above: Performed By: #### L [id number] ####Graphic Coordinator: NATALIE GARCIA ([id number])[facility] ([facility])[address] [place] [address] Hemoglobin (Bld) [Mass/Vol] 6.8 g/dL Critically low 11.7-16.0 [facility] Comment on above: Performed By: #### L [id number] ####Graphic Coordinator: NATALIE GARCIA ([id number])[facility] (SBHLAB)[address] MCH (RBC) [Entitic mass] 25.7 pg Low 26.0-34.0 [facility] Comment on above: Performed By: #### L [id number] ####Graphic Coordinator: NATALIE GARCIA ([id number])[facility]OSPITALJosé Miguel [place] (SBHLAB)[address] MCHC 30.4 % Low 30.5-36.0 [facility] Comment on above: Performed By: #### L [id number] ####Graphic Coordinator: NATALIE GARCIA ([id number])[facility]PITALJosé Miguel REHMANMAGNUSN (SBHLAB)[address] MCV (RBC) [Entitic vol] 84.5 fL Normal 77.0-99.0 [facility] Comment on above: Performed By: #### L [id number] ####Graphic Coordinator: NATALIE GARCIA ([id number])[facility]ITALJosé Miguel REHMANMAGNUSN (SBHLAB)[address] Platelet mean volume (Bld) [Entitic vol] 9.7 fL Normal 9.0-12.7 [facility] Comment on above: Performed By: #### L [id number] ####Graphic Coordinator: NATALIE GARCIA ([id number])[facility]ITALJosé Miguel REHMANMAGNUSN (SBHLAB)[address] Platelets (Bld) [#/Vol] 228 10*3/uL Normal 140-440 [facility] Comment on above: Performed By: #### L [id number] ####Graphic Coordinator: NATALIE GARCIA ([id number])[facility]OSPITALA TAMARMAGNUSN (SBHLAB)[address] [place] [address] [place] RBC (Bld) [#/Vol] 2.65 10*6/uL Low 3.80-5.20 [facility] Comment on above: Performed By: #### L [id number] ####Graphic Coordinator: NATALIE GARCIA ([id number])[facility] (SBHLAB)[address] WBC (Bld) [#/Vol] 6.4 10*3/uL Normal 3.6-10.7 [facility] Comment on above: Performed By: #### L [id number] ####Graphic Coordinator: NATALIE GARCIA ([id number])[facility] (SBHLAB)[address] CBC panel Auto (Bld)on 06-10 Erythrocyte distribution width (RBC) [Ratio] 19.1 % High 11.5 - 15.0 % [facility] Hematocrit (Bld) [Volume fraction] 22.4 % Low 35.0 - 47.0 % [facility] Hemoglobin (Bld) [Mass/Vol] 6.8 g/dL Critically low 11.7 - 16.0 g/dL [facility] Interpretation and review of laboratory results Abnormal [facility] MCH (RBC) [Entitic mass] 25.7 pg Low 26.0 - 34.0 pg [facility] MCHC (RBC) [Mass/Vol] 30.4 % Low 30.5 - 36.0 % [facility] MCV (RBC) [Entitic vol] 84.5 fL 77.0 - 99.0 fL [facility] Platelet mean volume (Bld) [Entitic vol] 9.7 fL 9.0 - 12.7 fL [facility] Platelets (Bld) [#/Vol] 228 10*3/uL 140 - 440 10*3/uL [facility] RBC (Bld) [#/Vol] 2.65 10*6/uL Low 3.80 - 5.2 0 10*6/uL [facility] WBC (Bld) [#/Vol] 6.4 10*3/uL 3.6 - 10.7 10*3/uL [facility] COMPREHENSIVE METABOLIC PANE Florentin 06-10-2025 Albumin [Mass/Vol] 2.3 g/dL Low 3.4-4.8 [facility] Comment on above: Performed By: #### L AB17 ####Graphic Coordinator: NATALIE GARCIA ([id number])[facility] (SBHLAB)[address] ALP [Catalytic activity/Vol] 112 U/L Normal 40-150 [facility] Comment on above: Performed By: #### L AB17 ####Graphic Coordinator: NATALIE DENISETRICIA ([id number])[facility] [place] (SBHLAB)[address] ALT [Catalytic activity/Vol] 10 U/L Normal <30 [facility] Comment on above: Performed By: #### L AB17 ####Graphic Coordinator: NATALIE GARCIA ([id number])[facility] [place] (HLAB)[address] Anion gap [Moles/Vol] 10 mmol/L Normal 3-13 [facility] Comment on above: Performed By: #### L AB17 ####Graphic Coordinator: NATALIE DENISETRICIA ([id number])[facility]ITALA BARBGALLUP INDIAN MEDICAL CENTERN (HLAB)[address] AST [Catalytic activity/Vol] 25 U/L Normal <34 [facility] Comment on above: Performed By: #### L AB17 ####Graphic Coordinator: NATALIE GARCIA ([id number])[facility] [place] (HLAB)[address] Bilirubin [Mass/Vol] 0.5 mg/dL Normal <1.2 [facility] Comment on above: Performed By: #### L AB17 ####Graphic Coordinator: NATALIE GARCIA ([id number])[facility]ITALA BARBGALLUP INDI[facility] MEDICAL CENTERN (HLAB)[address] Calcium [Mass/Vol] 9.0 mg/dL Normal 8.8-10.0 [facility] Comment on above: Performed By: #### L AB17 ####Graphic Coordinator: NATALIE GARCIA ([id number])[facility]A BARBGALLUP INDI[facility] MEDICAL CENTERN (HLAB)[address] Chloride [Moles/Vol] 99 mmol/L Normal 98-107 [facility] Comment on above: Performed By: #### L AB17 ####Graphic Coordinator: NATALIE JOSE ([id number])[facility]A BARBGALLUP INDI[facility] MEDICAL CENTERN (SBHLAB)[address] CO2 [Moles/Vol] 25 mmol/L Normal 23-31 [facility] Comment on above: Performed By: #### L AB17 ####Graphic Coordinator: NATALIE JOSE ([id number])[facility] (SBHLAB)[address] Creatinine [Mass/Vol] 3.44 mg/dL High 0.57-1.11 [facility] Comment on above: Performed By: #### L AB17 ####Graphic Coordinator: NATALIE JOSE ([id number])[facility] (SBHLAB)[address] GLOMERULAR FILTRATION RATE ML/MIN/1.73 SQ M.PREDICTED 13.2 mL/min/1.73m*2 Low >60.0 [facility] Comment on above: Result Comment: Calc ulation based on the Chronic Kidney Disease Epidemiology Collaboration (CKD-EPI) equation refit without adjustment for race Performed By: #### L AB17 ####Graphic Coordinator: NATALIE JOSE ([id number])[facility] (SBHLAB)[address] Glucose [Mass/Vol] 121 mg/dL High 82-115 [facility] Comment on above: Performed By: #### L AB17 ####Graphic Coordinator: NATALIE SIMONDANIEL ([id number])[facility] (SBHLAB)[address] [place] [address] [place] Potassium [Moles/Vol] 3.9 mmol/L Normal 3.5-5.1 [facility] Comment on above: Result Comment: [facility] potassium values may be up to 0.5 mmol/L lower than serum values. Performed By: #### L AB17 ####Graphic Coordinator: NATALIE JOSE ([id number])[facility] (SBHLAB)[address] [place] [address] [place] Protein [Mass/Vol] 6.4 g/dL Normal 6.4-8.3 [facility] Comment on above: Performed By: #### L AB17 ####Graphic Coordinator: NATALIE GARCIA ([id number])[facility]OSPITALJosé Miguel [place] (SBHLAB)[address] Sodium [Moles/Vol] 134 mmol/L Low 136-145 [facility] Comment on above: Performed By: #### L AB17 ####Graphic Coordinator: NATALIE GARCIA ([id number])[facility]ITALJosé Miguel REHMANGALLUP INDI[facility] MEDICAL CENTERN (SBHLAB)[address] Urea nitrogen [Mass/Vol] 38 mg/dL High 9-23 [facility] Comment on above: Performed By: #### L AB17 ####Graphic Coordinator: NATALIE GARCIA ([id number])[facility] (SBHLAB)[address] Comprehensive metabolic 1998 panelon 06-10-2025 Albumin [Mass/Vol] 2.3 g/dL Low 3.4 - 4.8 g/dL [facility] ALP [Catalytic activity/Vol] 112 U/L 40 - 150 U/L [facility] ALT [Catalytic activity/Vol] 10 U/L [facility] U/L [facility] Anion gap [Moles/Vol] 10 mmol/L 3 - 13 mmol/L [facility] AST [Catalytic activity/Vol] 25 U/L NINF - 34 U/L [facility] Bilirubin [Mass/Vol] 0.5 mg/dL NINF - 1.2 mg/dL [facility] Calcium [Mass/Vol] 9 mg/dL 8.8 - 10. 0 mg/dL [facility] Chloride [Moles/Vol] 99 mmol/L 98 - 10 7 mmol/L [facility] CO2 [Moles/Vol] 25 mmol/L 23 - 31 mmol/L [facility] Creatinine [Mass/Vol] 3.44 mg/dL High 0.57 - 1.11 mg/dL [facility] GFR/1.73 sq M.predicted (S/P/Bld) [Vol rate/Area] 13.2 mL/min Low - PINF [facility] Glucose [Mass/Vol] 121 mg/dL High 82 - 115 mg/dL [facility] Interpretation and review of laboratory results Abnormal [facility] Potassium [Moles/Vol] 3.9 mmol/L 3.5 - 5.1 mmol/L [facility] Protein [Mass/Vol] 6.4 g/dL 6.4 - 8.3 g/dL [facility] Sodium [Moles/Vol] 134 mmol/L Low 136 - 145 mmol/L [facility] Urea nitrogen [Mass/Vol] 38 mg/dL High 9 - 23 mg/dL [facility] HEMOGLOBIN AND HEMATOCRIT, B LOODon 06-10-2025 Hematocrit (Bld) [Volume fraction] 25.8 % Low 35.0-47.0 [facility] Comment on above: Order Comment: Recom mend 1 hour post transfusion Performed By: #### L [id number] ####Graphic Coordinator: NATALIE GARICA ([id number])[facility] ([facility])[address] [place] [address] Hemoglobin (Bld) [Mass/Vol] 8.1 g/dL Low 11.7-16.0 [facility] Comment on above: Order Comment: Recom mend 1 hour post transfusion Performed By: #### L AB753 ####Graphic Coordinator: NATALIE GARCIA ([id number])[facility] ([facility])[address] [place] [address] Hemoglobin (Bld) [Mass/Vol]O rdered By: Marguerite Maxwell on 06-10-2025 Hematocrit (Bld) [Volume fraction] 25.8 % Low 35.0 - 47.0 % [facility] Interpretation and review of laboratory results Abnormal [facility] IRON AND TIBCon 06-10-2025 IRON BINDING CAPACITY 188 ug/dL Low 250-450 [facility] Comment on above: Performed By: #### L [id number] ####Graphic Coordinator: NATALIE GARCIA ([id number])[facility] ([facility])[address] [place] [address] IRON SATURATION 16.5 % Low 20.0-50.0 [facility] Comment on above: Performed By: #### L [id number] ####Graphic Coordinator: NATALIE JOSE ([id number])[facility] (SBHLAB)[address] IRON, TOTAL 31 ug/dL Low 50-170 [facility] Comment on above: Performed By: #### L [id number] ####Graphic Coordinator: NATALIE JOSE ([id number])[facility] (SBHLAB)[address] Iron and Iron binding capaci ty panelon 06-10-2025 Interpretation and review of laboratory results Abnormal [facility] Iron [Mass/Vol] 31 ug/dL Low 50 - 170 ug/dL [facility] Iron binding capacity [Mass/Vol] 188 ug/dL Low 250 - 450 ug/dL [facility] Iron saturation [Mass fraction] 16.5 % Low 20.0 - 50.0 % [facility] Laboratory - Chemistry and C hemistry - challengeon 06-10-2025 Glucose [Mass/Vol] 164 mg/dL High 70 - 100 mg/dL [facility] Glucose [Mass/Vol] 157 mg/dL High 70 - 100 mg/dL [facility] Glucose [Mass/Vol] 163 mg/dL High 70 - 100 mg/dL [facility] Glucose [Mass/Vol] 117 mg/dL High 70 - 100 mg/dL [facility] Glucose [Mass/Vol] 103 mg/dL High 70 - 100 mg/dL [facility] Glucose [Mass/Vol] 57 mg/dL Low 70 - 100 mg/dL [facility] Laboratory - Hematology and Cell countsOrdered By: Marguerite Maxwell on 06-10-2025 Hemoglobin (Bld) [Mass/Vol] 8.1 g/dL Low 11.7 - 16.0 g/dL [facility] No Panel Informationon 06-10 Interpretation and review of laboratory results Abnormal [facility] Interpretation and review of laboratory results Abnormal [facility] Interpretation and review of laboratory results Abnormal [facility] Blood Expiration Date [id number] S [facility] Crossmatch interpretation COMP [facility] Dispense Status Transfused [facility] Product Blood Type 6200 [facility] PRODUCT CODE [id number] [facility] ABO A [facility] Number [id number] [facility] alth Unit RH Positive [facility] Unit Volume 300 mL [facility] Interpretation and review of laboratory results Abnormal [facility] Interpretation and review of laboratory results Abnormal [facility] Interpretation and review of laboratory results Abnormal [facility] Progress Noteon 06-10-2025 Progress Note Normal [place] [facility] Progress Note Normal [facility] SHS Bacteria identified Cx Nom ( Catheter tip)Ordered By: Alcides Sims on 06-09-2025 Interpretation and review of laboratory results Abnormal [facility] CBC (HEMOGRAM)on 06-09-2025 Erythrocyte distribution width (RBC) [Ratio] 19.1 % High 11.5-15.0 [facility]S Comment on above: Performed By: #### L [id number] ####Graphic Coordinator: NATALIE GARCIA ([id number])[facility] (SBAB)[address] [place] [address] Hematocrit (Bld) [Volume fraction] 22.0 % Low 35.0-47.0 [facility] Comment on above: Performed By: #### L AB294 ####Graphic Coordinator: NATALIE AGRCIA ([id number])[facility] (SBHLAB)[address] [place] [address] Hemoglobin (Bld) [Mass/Vol] 6.9 g/dL Critically low 11.7-16.0 [facility] Comment on above: Performed By: #### L AB294 ####Graphic Coordinator: NATALIE GARCIA ([id number])[facility] (SBHLAB)[address] MCH (RBC) [Entitic mass] 25.9 pg Low 26.0-34.0 [facility] Comment on above: Performed By: #### L AB294 ####Graphic Coordinator: NATALIE GARCIA ([id number])[facility] (SBHLAB)[address] MCHC 31.4 % Normal 30.5-36.0 [facility] Comment on above: Performed By: #### L AB294 ####Graphic Coordinator: NATALIE GARCIA ([id number])[place] (SBHLAB)[address] MCV (RBC) [Entitic vol] 82.7 fL Normal 77.0-99.0 [facility] Comment on above: Performed By: #### L AB294 ####Graphic Coordinator: NATALIE GARCIA ([id number])[facility] [place] (SBHLAB)[address] Platelet mean volume (Bld) [Entitic vol] 9.8 fL Normal 9.0-12.7 [facility] Comment on above: Performed By: #### L AB294 ####Graphic Coordinator: NATALIE GARCIA ([id number])[facility] [place] (SBHLAB)[address] [place] [address] [place] Platelets (Bld) [#/Vol] 230 10*3/uL Normal 140-440 [facility] Comment on above: Performed By: #### L AB294 ####Graphic Coordinator: NATALIE GARCIA ([id number])[facility] [place] (SBHLAB)[address] RBC (Bld) [#/Vol] 2.66 10*6/uL Low 3.80-5.20 [facility] Comment on above: Performed By: #### L AB294 ####Graphic Coordinator: NATALIE GARCIA ([id number])[facility] [place] (SBHLAB)[address] [place] [address] [place] WBC (Bld) [#/Vol] 6.7 10*3/uL Normal 3.6-10.7 [facility] Comment on above: Performed By: #### L AB294 ####Graphic Coordinator: NATALIE [id number])[facility] (SBHLAB)[address] CBC panel Auto (Bld)on 06-09 Erythrocyte distribution width (RBC) [Ratio] 19.1 % High 11.5 - 15.0 % [facility] Hematocrit (Bld) [Volume fraction] 22 % Low 35.0 - 47.0 % [facility] Hemoglobin (Bld) [Mass/Vol] 6.9 g/dL Critically low 11.7 - 16.0 g/dL [facility] Interpretation and review of laboratory results Abnormal [facility] MCH (RBC) [Entitic mass] 25.9 pg Low 26.0 - 34.0 pg [facility] MCHC (RBC) [Mass/Vol] 31.4 % 30.5 - 36.0 % [facility] MCV (RBC) [Entitic vol] 82.7 fL 77.0 - 99.0 fL [facility] Platelet mean volume (Bld) [Entitic vol] 9.8 fL 9.0 - 12.7 fL [facility] Platelets (Bld) [#/Vol] 230 10*3/uL 140 - 440 10*3/uL [facility] RBC (Bld) [#/Vol] 2.66 10*6/uL Low 3.80 - 5.2 0 10*6/uL [facility] WBC (Bld) [#/Vol] 6.7 10*3/uL 3.6 - 10.7 10*3/uL [facility] COMPREHENSIVE METABOLIC PANE Florentin 06-09-2025 Albumin [Mass/Vol] 2.4 g/dL Low 3.4-4.8 [facility] Comment on above: Performed By: #### L AB17 ####Graphic Coordinator: NATALIE GARCIA ([id number])[facility] (SBHLAB)[address] ALP [Catalytic activity/Vol] 117 U/L Normal 40-150 [facility] Comment on above: Performed By: #### L AB17 ####Graphic Coordinator: NATALIE GARCIA ([id number])[facility] (SB[facility])[address] [place] [address] [place] ALT [Catalytic activity/Vol] 9 U/L Normal <30 [facility] Comment on above: Performed By: #### L AB17 ####Graphic Coordinator: NATALIE DENISETRICIA ([id number])[facility] [place] (SBHLAB)[address] Anion gap [Moles/Vol] 11 mmol/L Normal 3-13 [facility] Comment on above: Performed By: #### L AB17 ####Graphic Coordinator: NATALIE GARCIA ([id number])[facility] [place] (HLAB)[address] AST [Catalytic activity/Vol] 18 U/L Normal <34 [facility] Comment on above: Performed By: #### L AB17 ####Graphic Coordinator: NATALIE DENISETRICIA ([id number])[facility] (HLAB)[address] Bilirubin [Mass/Vol] 0.5 mg/dL Normal <1.2 [facility] Comment on above: Performed By: #### L AB17 ####Graphic Coordinator: NATALIE GARCIA ([id number])[facility] ([facility])[address] Calcium [Mass/Vol] 9.1 mg/dL Normal 8.8-10.0 [facility] Comment on above: Performed By: #### L AB17 ####Graphic Coordinator: NATALIE GARCIA ([id number])[facility] (HLAB)[address] [place] [address] [place] Chloride [Moles/Vol] 99 mmol/L Normal 98-107 [facility] Comment on above: Performed By: #### L AB17 ####Graphic Coordinator: NATALIE GARCIA ([id number])[facility] (SBHLAB)[address] [place] [address] [place] CO2 [Moles/Vol] 26 mmol/L Normal 23-31 [facility]S Comment on above: Performed By: #### L AB17 ####Graphic Coordinator: NATALIE GARCIA ([id number])[facility] (SBHLAB)[address] Creatinine [Mass/Vol] 2.37 mg/dL High 0.57-1.11 [facility] Comment on above: Performed By: #### L AB17 ####Graphic Coordinator: NATALIE GARCIA ([id number])[facility] (SBHLAB)[address] GLOMERULAR FILTRATION RATE ML/MIN/1.73 SQ M.PREDICTED 20.6 mL/min/1.73m*2 Low >60.0 [facility] Comment on above: Result Comment: Calc ulation based on the Chronic Kidney Disease Epidemiology Collaboration (CKD-EPI) equation refit without adjustment for race Performed By: #### L AB17 ####Graphic Coordinator: NATALIE GARCIA ([id number])[facility] (SBHLAB)[address] Glucose [Mass/Vol] 101 mg/dL Normal 82-115 [facility] Comment on above: Performed By: #### L AB17 ####Graphic Coordinator: NATALIE GARCIA ([id number])[facility] (SBHLAB)[address] [place] [address] Potassium [Moles/Vol] 3.8 mmol/L Normal 3.5-5.1 [facility] Comment on above: Result Comment: [facility] potassium values may be up to 0.5 mmol/L lower than serum values. Performed By: #### L AB17 ####Graphic Coordinator: NATALIE GARCIA ([id number])[facility] (SBHLAB)[address] Protein [Mass/Vol] 6.6 g/dL Normal 6.4-8.3 [facility] Comment on above: Performed By: #### L AB17 ####Graphic Coordinator: NATALIE GARCIA ([id number])[facility] (SBHLAB)[address] Sodium [Moles/Vol] 136 mmol/L Normal 136-145 [facility]S Comment on above: Performed By: #### L AB17 ####Graphic Coordinator: NATALIE GARCIA ([id number])[facility]ITAL[facility] [place] (SBHLAB)[address] Urea nitrogen [Mass/Vol] 26 mg/dL High 9-23 [facility] Comment on above: Performed By: #### L AB17 ####Graphic Coordinator: NATALIE GARCIA ([id number])[facility]ITALJosé Miguel REHMANGALLUP [facility]DI[facility] MEDICAL CENTERLaurel (SBHLAB)[address] CULTURE ANAEROBICon 06-09-20 CULTURE ANAEROBIC Normal [facility] Comment on above: Performed By: #### L AB233 ####Graphic Coordinator: VASHTI BAILEY ([id number])[facility] ([facility])[address] [place] [address] CULTURE, AEROBIC BACTERIA WI TH GRAM STAINon 06-09-2025 CULTURE, AEROBIC BACTERIA WITH GRAM STAIN Normal [facility] Comment on above: Performed By: #### L AB897 ####Graphic Coordinator: VASHTI BAILEY ([id number])[facility] ([facility])[address] [place] [address] Comprehensive metabolic 1998 panelon 06-09-2025 Albumin [Mass/Vol] 2.4 g/dL Low 3.4 - 4.8 g/dL [facility] ALP [Catalytic activity/Vol] 117 U/L 40 - 150 U/L [facility] ALT [Catalytic activity/Vol] 9 U/L NINF - 30 U/L [facility] Anion gap [Moles/Vol] 11 mmol/L 3 - 13 mmol/L [facility] AST [Catalytic activity/Vol] 18 U/L NINF - 34 U/L [facility] Bilirubin [Mass/Vol] 0.5 mg/dL NINF - 1.2 mg/dL [facility] Calcium [Mass/Vol] 9.1 mg/dL 8.8 - 10. 0 mg/dL [facility] Chloride [Moles/Vol] 99 mmol/L 98 - 10 7 mmol/L [facility] CO2 [Moles/Vol] 26 mmol/L 23 - 31 mmol/L [facility] Creatinine [Mass/Vol] 2.37 mg/dL High 0.57 - 1.11 mg/dL [facility] GFR/1.73 sq M.predicted (S/P/Bld) [Vol rate/Area] 20.6 mL/min Low - PINF [facility] Glucose [Mass/Vol] 101 mg/dL 82 - 115 mg/dL [facility] Interpretation and review of laboratory results Abnormal [facility] Potassium [Moles/Vol] 3.8 mmol/L 3.5 - 5.1 mmol/L [facility] Protein [Mass/Vol] 6.6 g/dL 6.4 - 8.3 g/dL [facility] Sodium [Moles/Vol] 136 mmol/L 136 - 145 mmol/L [facility] Urea nitrogen [Mass/Vol] 26 mg/dL High 9 - 23 mg/dL [facility] HEMOGLOBIN AND HEMATOCRIT, B LOODon 06-09-2025 Hematocrit (Bld) [Volume fraction] 22.8 % Low 35.0-47.0 [facility] Comment on above: Performed By: #### L AB753 ####Graphic Coordinator: NATALIE GARCIA ([id number])[facility] ([facility])[address] [place] [address] Hemoglobin (Bld) [Mass/Vol] 7.3 g/dL Low 11.7-16.0 [facility] Comment on above: Performed By: #### L AB753 ####Graphic Coordinator: NATALIE GARCIA ([id number])[facility] ([facility])[address] [place] [address] Hemoglobin (Bld) [Mass/Vol]o n 06-09-2025 Hematocrit (Bld) [Volume fraction] 22.8 % Low 35.0 - 47.0 % [facility] Interpretation and review of laboratory results Abnormal [facility] Laboratory - Chemistry and C hemistry - challengeon 06-09-2025 Glucose [Mass/Vol] 97 mg/dL 70 - 100 mg/dL [facility] Glucose [Mass/Vol] 94 mg/dL 70 - 100 mg/dL [facility] Glucose [Mass/Vol] 116 mg/dL High 70 - 100 mg/dL [facility] Glucose [Mass/Vol] 111 mg/dL High 70 - 100 mg/dL [facility] Laboratory - Hematology and Cell countson 06-09-2025 Hemoglobin (Bld) [Mass/Vol] 7.3 g/dL Low 11.7 - 16.0 g/dL [facility] Laboratory - Microbiology an d Antimicrobial susceptibilityOrdered By: Alcides Sims on 06-09-2025 Bacteria identified Cx Nom (Catheter tip) >15 CFU Serratia marcescens Abnormal [facility] No Panel Informationon 06-09 Interpretation and review of laboratory results Normal [facility] Interpretation and review of laboratory results Normal [facility] Interpretation and review of laboratory results Abnormal [facility] Interpretation and review of laboratory results Abnormal [facility] Progress Noteon 06-09-2025 Progress Note Normal [place] [facility] Progress Note Normal [place] Progress Note Normal [place] [facility] Progress Note Normal [facility] [id number] 06-08-2025 [id number] Normal [facility] CBC (HEMOGRAM)on 06-08-2025 Erythrocyte distribution width (RBC) [Ratio] 19.2 % High 11.5-15.0 [facility] Comment on above: Performed By: #### L [id number] ####Graphic Coordinator: NATALIE GARCIA ([id number])[facility] ([facility])[address] [place] [address] Hematocrit (Bld) [Volume fraction] 24.6 % Low 35.0-47.0 [facility] Comment on above: Performed By: #### L AB294 ####Graphic Coordinator: NATALIE GARCIA ([id number])[facility] ([facility])[address] [place] [address] Hemoglobin (Bld) [Mass/Vol] 7.7 g/dL Low 11.7-16.0 [facility] Comment on above: Performed By: #### L AB294 ####Graphic Coordinator: NATALIE [id number])[place] (SBHLAB)[address] MCH (RBC) [Entitic mass] 26.0 pg Normal 26.0-34.0 [facility] Comment on above: Performed By: #### L AB294 ####Graphic Coordinator: NATALIE GARCIA ([id number])[facility] [place] (SBHLAB)[address] MCHC 31.3 % Normal 30.5-36.0 [facility] Comment on above: Performed By: #### L AB294 ####Graphic Coordinator: NATALIE GARCIA ([id number])[facility] [place] (SBHLAB)[address] MCV (RBC) [Entitic vol] 83.1 fL Normal 77.0-99.0 [facility] Comment on above: Performed By: #### L AB294 ####Graphic Coordinator: NATALIE GARCIA ([id number])[facility] [place] (SBHLAB)[address] Platelet mean volume (Bld) [Entitic vol] 9.9 fL Normal 9.0-12.7 [facility] Comment on above: Performed By: #### L AB294 ####Graphic Coordinator: NATALIE GARCIA ([id number])[facility]ITAL[facility] [place] (SBHLAB)[address] [place] [address] [place] Platelets (Bld) [#/Vol] 236 10*3/uL Normal 140-440 [facility] Comment on above: Performed By: #### L AB294 ####Graphic Coordinator: NATALIE GARCIA ([id number])[facility] [place] (SBHLAB)[address] RBC (Bld) [#/Vol] 2.96 10*6/uL Low 3.80-5.20 [facility] Comment on above: Performed By: #### L AB294 ####Graphic Coordinator: NATALIE GARCIA ([id number])[facility] (SBHLAB)[address] WBC (Bld) [#/Vol] 6.5 10*3/uL Normal 3.6-10.7 [facility] Comment on above: Performed By: #### L AB294 ####Graphic Coordinator: NATALIE GARCIA ([id number])[facility] (SBHLAB)[address] [place] [address] CBC panel Auto (Bld)on 06-08 Erythrocyte distribution width (RBC) [Ratio] 19.2 % High 11.5 - 15.0 % [facility] Hematocrit (Bld) [Volume fraction] 24.6 % Low 35.0 - 47.0 % [facility] Hemoglobin (Bld) [Mass/Vol] 7.7 g/dL Low 11.7 - 16.0 g/dL [facility] Interpretation and review of laboratory results Abnormal [facility] MCH (RBC) [Entitic mass] 26 pg 26.0 - 34.0 pg [facility] MCHC (RBC) [Mass/Vol] 31.3 % 30.5 - 36.0 % [facility] MCV (RBC) [Entitic vol] 83.1 fL 77.0 - 99.0 fL [facility] Platelet mean volume (Bld) [Entitic vol] 9.9 fL 9.0 - 12.7 fL [facility] Platelets (Bld) [#/Vol] 236 10*3/uL 140 - 440 10*3/uL [facility] RBC (Bld) [#/Vol] 2.96 10*6/uL Low 3.80 - 5.2 0 10*6/uL [facility] WBC (Bld) [#/Vol] 6.5 10*3/uL 3.6 - 10.7 10*3/uL [facility] COMPREHENSIVE METABOLIC PANE Florentin 06-08-2025 Albumin [Mass/Vol] 2.5 g/dL Low 3.4-4.8 [facility] Comment on above: Performed By: #### L AB96, LAB17 ####Graphic Coordinator: NATALIE GARCIA ([id number])[facility] (SBHLAB)[address] ALP [Catalytic activity/Vol] 118 U/L Normal 40-150 [facility] Comment on above: Performed By: #### L AB96, LAB17 ####Graphic Coordinator: NATALIE GARCIA ([id number])[facility] [place] (SBHLAB)[address] ALT [Catalytic activity/Vol] 9 U/L Normal <30 [facility] Comment on above: Performed By: #### L AB96, LAB17 ####Graphic Coordinator: NATALIE GARCIA ([id number])[facility] [place] (SBHLAB)[address] Anion gap [Moles/Vol] 10 mmol/L Normal 3-13 [facility] Comment on above: Performed By: #### L AB96, LAB17 ####Graphic Coordinator: NATALIE GARCIA ([id number])[facility] [place] (SBHLAB)[address] AST [Catalytic activity/Vol] 16 U/L Normal <34 [facility] Comment on above: Performed By: #### L AB96, LAB17 ####Graphic Coordinator: NATALIE GARCIA ([id number])[facility] [place] (SBHLAB)[address] Bilirubin [Mass/Vol] 0.5 mg/dL Normal <1.2 [facility] Comment on above: Performed By: #### L AB96, LAB17 ####Graphic Coordinator: NATALIE GARCIA ([id number])[facility] [place] (SBHLAB)[address] Calcium [Mass/Vol] 9.1 mg/dL Normal 8.8-10.0 [facility] Comment on above: Performed By: #### L AB96, LAB17 ####Graphic Coordinator: NATALIE GARCIA ([id number])[facility] [place] (SBHLAB)[address] [place] [address] [place] Chloride [Moles/Vol] 95 mmol/L Low 98-107 [facility] Comment on above: Performed By: #### L AB96, LAB17 ####Graphic Coordinator: NATALIE DENISETRICIA ([id number])[facility] BARBGALLUP INDIAN MED[facility]ENTERN (SBHLAB)[address] CO2 [Moles/Vol] 24 mmol/L Normal 23-31 [facility] Comment on above: Performed By: #### L AB96, LAB17 ####Graphic Coordinator: NATALIE SIMONDANIEL ([id number])[facility] (SBHLAB)[address] Creatinine [Mass/Vol] 4.25 mg/dL High 0.57-1.11 [facility] Comment on above: Performed By: #### L AB96, LAB17 ####Graphic Coordinator: NATALIE SIMONDANIEL ([id number])[facility] (SBHLAB)[address] GLOMERULAR FILTRATION RATE ML/MIN/1.73 SQ M.PREDICTED 10.2 mL/min/1.73m*2 Low >60.0 [facility] Comment on above: Result Comment: Calc ulation based on the Chronic Kidney Disease Epidemiology Collaboration (CKD-EPI) equation refit without adjustment for race Performed By: #### L AB96, LAB17 ####Graphic Coordinator: NATALIE DENISETRICIA ([id number])[facility] (SBHLAB)[address] [place] [address] [place] Glucose [Mass/Vol] 150 mg/dL High 82-115 [facility] Comment on above: Performed By: #### L AB96, LAB17 ####Graphic Coordinator: NATALIE GARCIA ([id number])[facility] (SBHLAB)[address] [place] [address] [place] Potassium [Moles/Vol] 3.8 mmol/L Normal 3.5-5.1 [facility] Comment on above: Result Comment: [facility] potassium values may be up to 0.5 mmol/L lower than serum values. Performed By: #### L AB96, LAB17 ####Graphic Coordinator: NATALIE CALVERTCER ([id number])[facility]ITALJos[facility] (SBHLAB)[address] Protein [Mass/Vol] 6.5 g/dL Normal 6.4-8.3 [facility] Comment on above: Performed By: #### L AB96, LAB17 ####Graphic Coordinator: NATALIE GARCIA ([id number])[facility] (SBHLAB)[address] Sodium [Moles/Vol] 129 mmol/L Low 136-145 [facility] Comment on above: Performed By: #### L AB96, LAB17 ####Graphic Coordinator: NATALIE CALVERTCER ([id number])[facility] (SBHLAB)[address] Urea nitrogen [Mass/Vol] 51 mg/dL High 9-23 [facility] Comment on above: Performed By: #### L AB96, LAB17 ####Graphic Coordinator: NATALIE GARCIA ([id number])[facility] (SBHLAB)[address] [place] [address] Comprehensive metabolic 1998 panelon 06-08-2025 Albumin [Mass/Vol] 2.5 g/dL Low 3.4 - 4.8 g/dL [facility] ALP [Catalytic activity/Vol] 118 U/L 40 - 150 U/L [facility] ALT [Catalytic activity/Vol] 9 U/L NINF - 30 U/L [facility] Anion gap [Moles/Vol] 10 mmol/L 3 - 13 mmol/L [facility] AST [Catalytic activity/Vol] 16 U/L NINF - 34 U/L [facility] Bilirubin [Mass/Vol] 0.5 mg/dL NINF - 1.2 mg/dL [facility] Calcium [Mass/Vol] 9.1 mg/dL 8.8 - 10. 0 mg/dL [facility] Chloride [Moles/Vol] 95 mmol/L Low 98 - 10 7 mmol/L [facility] CO2 [Moles/Vol] 24 mmol/L 23 - 31 mmol/L [facility] Creatinine [Mass/Vol] 4.25 mg/dL High 0.57 - 1.11 mg/dL [facility] GFR/1.73 sq M.predicted (S/P/Bld) [Vol rate/Area] 10.2 mL/min Low - PINF [facility] Glucose [Mass/Vol] 150 mg/dL High 82 - 115 mg/dL [facility] Interpretation and review of laboratory results Abnormal [facility] Potassium [Moles/Vol] 3.8 mmol/L 3.5 - 5.1 mmol/L [facility] Protein [Mass/Vol] 6.5 g/dL 6.4 - 8.3 g/dL [facility] Sodium [Moles/Vol] 129 mmol/L Low 136 - 145 mmol/L [facility] Urea nitrogen [Mass/Vol] 51 mg/dL High 9 - 23 mg/dL [facility] LACTATE DEHYDROGENASEon 05-28 LDH [Catalytic activity/Vol] 213 U/L Normal 125-220 [facility] Comment on above: Performed By: #### L AB96, LAB17 ####Graphic Coordinator: NATALIE GARCIA ([id number])[facility] ([facility])[address] [place] [address] LDH Lactate to pyruvate reac tion [Catalytic activity/Vol]on 06-08-2025 Interpretation and review of laboratory results Normal [facility] Laboratory - Chemistry and C hemistry - challengeon 06-08-2025 Glucose [Mass/Vol] 98 mg/dL 70 - 100 mg/dL [facility] Glucose [Mass/Vol] 131 mg/dL High 70 - 100 mg/dL [facility] Glucose [Mass/Vol] 161 mg/dL High 70 - 100 mg/dL [facility] Glucose [Mass/Vol] 166 mg/dL High 70 - 100 mg/dL [facility] LDH Lactate to pyruvate reaction [Catalytic activity/Vol] 213 U/L 125 - 220 U/L [facility] Glucose [Mass/Vol] 156 mg/dL High 70 - 100 mg/dL [facility] No Panel Informationon 06-08 Interpretation and review of laboratory results Normal [facility] Interpretation and review of laboratory results Abnormal [facility] Interpretation and review of laboratory results [facility] [facility] Interpretation and review of laboratory results Abnormal [facility] Interpretation and review of laboratory results Abnormal [facility] Progress Noteon 06-08-2025 Progress Note [facility] Progress Note Normal [facility] Progress Note Normal [facility] XR CHEST 1 VIEWon 06-08-2025 XR CHEST 1 VIEW Normal [facility] XR Chest Single viewon 06-08 [facility] RADIOLOGY [facility] Radiology Study observation (narrative) [place] XR Chest Single viewOrdered By: Timbo Mojica on 06-08-2025 [facility] Work Phone: [phone] 06-07-2025 [id number] Normal [facility] BLOOD CULTUREon 06-07-2025 Bacteria identified Cx Nom (Bld) Normal [facility] Comment on above: Performed By: #### L [id number] ####Graphic Coordinator: VASHTI BAILEY ([id number])[facility] ([facility])[address] [place] [address] Bacteria identified Cx Nom (Bld) Normal [facility] Comment on above: Performed By: #### L [id number] ####Graphic Coordinator: VASHTI BAILEY ([id number])[facility] ([facility])[address] [place] [address] CBC (HEMOGRAM)on 06-07-2025 Erythrocyte distribution width (RBC) [Ratio] 19.2 % High 11.5-15.0 [facility] Comment on above: Performed By: #### L [id number] ####Graphic Coordinator: NATALIE GARCIA ([id number])[facility])[address] [place] [address] Hematocrit (Bld) [Volume fraction] 24.4 % Low 35.0-47.0 [facility] Comment on above: Performed By: #### L [id number] ####Graphic Coordinator: NATALIE GARCIA ([id number])[facility] ([facility])[address] Hemoglobin (Bld) [Mass/Vol] 7.5 g/dL Low 11.7-16.0 [facility] Comment on above: Performed By: #### L [id number] ####Graphic Coordinator: NATALIE GARCIA ([id number])[facility]OSPITALJosé Miguel REHMANGALLUP INDIAN MEDICAL CENTERLaurel (SBHLAB)[address] MCH (RBC) [Entitic mass] 26.0 pg Normal 26.0-34.0 [facility] Comment on above: Performed By: #### L [id number] ####Graphic Coordinator: NATALIE GARCIA ([id number])[facility]OSPITALJosé Miguel REVA ([facility])[address] MCHC 30.7 % Normal 30.5-36.0 [facility] Comment on above: Performed By: #### L [id number] ####Graphic Coordinator: NATALIE GARCIA ([id number])[facility]OSPITALJosé Miguel REVA (SBAB)[address] MCV (RBC) [Entitic vol] 84.4 fL Normal 77.0-99.0 [facility] Comment on above: Performed By: #### L [id number] ####Graphic Coordinator: NATALIE GARCIA ([id number])[facility]OSPITALJosé Miguel [facility] JO[facility] HOSPITALLaurel (SBAB)[address] [place] [address] Platelet mean volume (Bld) [Entitic vol] 9.5 fL Normal 9.0-12.7 [facility] Comment on above: Performed By: #### L [id number] ####Graphic Coordinator: NATALIE GARCIA ([id number])[facility] (SBHLAB)[address] [place] [address] [place] Platelets (Bld) [#/Vol] 234 10*3/uL Normal 140-440 [facility] Comment on above: Performed By: #### L [id number] ####Graphic Coordinator: NATALIE GARCIA ([id number])[facility] (SBHLAB)[address] RBC (Bld) [#/Vol] 2.89 10*6/uL Low 3.80-5.20 [facility] Comment on above: Performed By: #### L [id number] ####Graphic Coordinator: NATALIE GARCIA ([id number])[facility]OSPITALJosé Miguel [place] (SBHLAB)[address] WBC (Bld) [#/Vol] 7.4 10*3/uL Normal 3.6-10.7 [facility] Comment on above: Performed By: #### L [id number] ####Graphic Coordinator: NATALIE GARCIA ([id number])[facility] HOSPITALJosé Miguel RE[facility]MANBANNER BE[facility]IOR[facility] (SBHLAB)[address] [place] [address] CBC panel Auto (Bld)on 06-07 Erythrocyte distribution width (RBC) [Ratio] 19.2 % High 11.5 - 15.0 % [facility] Hematocrit (Bld) [Volume fraction] 24.4 % Low 35.0 - 47.0 % [facility] Hemoglobin (Bld) [Mass/Vol] 7.5 g/dL Low 11.7 - 16.0 g/dL [facility] Interpretation and review of laboratory results Abnormal [facility] MCH (RBC) [Entitic mass] 26 pg 26.0 - 34.0 pg [facility] MCHC (RBC) [Mass/Vol] 30.7 % 30.5 - 36.0 % [facility] MCV (RBC) [Entitic vol] 84.4 fL 77.0 - 99.0 fL [facility] Platelet mean volume (Bld) [Entitic vol] 9.5 fL 9.0 - 12.7 fL [facility] Platelets (Bld) [#/Vol] 234 10*3/uL 140 - 440 10*3/uL [facility] RBC (Bld) [#/Vol] 2.89 10*6/uL Low 3.80 - 5.2 0 10*6/uL [facility] WBC (Bld) [#/Vol] 7.4 10*3/uL 3.6 - 10.7 10*3/uL [facility] COMPREHENSIVE METABOLIC PANE Florentin 06-07-2025 Albumin [Mass/Vol] 2.7 g/dL Low 3.4-4.8 [facility] Comment on above: Performed By: #### L [id number] ####Graphic Coordinator: NATALIE GARCIA ([id number])[facility]OSPITALA [place] (SBHLAB)[address] ALP [Catalytic activity/Vol] 123 U/L Normal 40-150 [facility] Comment on above: Performed By: #### L AB17 ####Graphic Coordinator: NATALIE GARCIA ([id number])[facility]ITALA [place] (SBHLAB)[address] ALT [Catalytic activity/Vol] 9 U/L Normal <30 [facility] Comment on above: Performed By: #### L AB17 ####Graphic Coordinator: NATALIE GARCIA ([id number])[facility] HOSPITALA BARBGALLUP INDIAN MEDICAL CENTERN (HLAB)[address] Anion gap [Moles/Vol] 11 mmol/L Normal 3-13 [facility] Comment on above: Performed By: #### L AB17 ####Graphic Coordinator: NATALIE GARCIA ([id number])[facility]ITALA [place] (SBHLAB)[address] AST [Catalytic activity/Vol] 19 U/L Normal <34 [facility] Comment on above: Performed By: #### L AB17 ####Graphic Coordinator: NATALIE GARCIA ([id number])[facility]ITALA [place] (SBHLAB)[address] Bilirubin [Mass/Vol] 0.6 mg/dL Normal <1.2 [facility] Comment on above: Performed By: #### L AB17 ####Graphic Coordinator: NATALIE GARCIA ([id number])[facility]ITALA [place] (SBHLAB)[address] Calcium [Mass/Vol] 9.4 mg/dL Normal 8.8-10.0 [facility] Comment on above: Performed By: #### L AB17 ####Graphic Coordinator: NATALIE GARCIA ([id number])[facility]ITALA [place] (SBHLAB)[address] [place] [address] [place] Chloride [Moles/Vol] 96 mmol/L Low 98-107 [facility] Comment on above: Performed By: #### L AB17 ####Graphic Coordinator: NATALIE DENISETRICIA ([id number])[facility]ITALA [place] (SBHLAB)[address] CO2 [Moles/Vol] 26 mmol/L Normal 23-31 [facility] Comment on above: Performed By: #### L AB17 ####Graphic Coordinator: NATALIE GARCIA ([id number])[facility]ITALA [place] (SBHLAB)[address] Creatinine [Mass/Vol] 3.68 mg/dL High 0.57-1.11 [facility] Comment on above: Performed By: #### L AB17 ####Graphic Coordinator: NATALIE GARCIA ([id number])[facility]ITALA [place] (SBHLAB)[address] GLOMERULAR FILTRATION RATE ML/MIN/1.73 SQ M.PREDICTED 12.2 mL/min/1.73m*2 Low >60.0 [facility] Comment on above: Result Comment: Calc ulation based on the Chronic Kidney Disease Epidemiology Collaboration (CKD-EPI) equation refit without adjustment for race Performed By: #### L AB17 ####Graphic Coordinator: NATALIE GARCIA ([id number])[facility]ITAL[facility] [place] (SBHLAB)[address] [place] [address] [place] Glucose [Mass/Vol] 119 mg/dL High 82-115 [facility] Comment on above: Performed By: #### L AB17 ####Graphic Coordinator: NATALIE GARCIA ([id number])[facility] [place] (SBHLAB)[address] [place] [address] [place] Potassium [Moles/Vol] 3.7 mmol/L Normal 3.5-5.1 [facility] Comment on above: Result Comment: Plas ma potassium values may be up to 0.5 mmol/L lower than serum values. Performed By: #### L AB17 ####Graphic Coordinator: NATALIE SIMONErlindaTRICIA ([id number])[facility]OSPITALJosé Miguel [place] (SBHLAB)[address] Protein [Mass/Vol] 6.8 g/dL Normal 6.4-8.3 [facility] Comment on above: Performed By: #### L AB17 ####Graphic Coordinator: NATALIE DENISETRICIA ([id number])[facility]ITALJosé Miguel [place] (SBHLAB)[address] Sodium [Moles/Vol] 133 mmol/L Low 136-145 [facility] Comment on above: Performed By: #### L AB17 ####Graphic Coordinator: NATALIE DENISETRICIA ([id number])[facility]OSPITALJosé Miguel [place] (SBHLAB)[address] [place] [address] Urea nitrogen [Mass/Vol] 40 mg/dL High 9-23 [facility] Comment on above: Performed By: #### L AB17 ####Graphic Coordinator: NATALIE DENISETRICIA ([id number])[facility]ITALJosé Miguel [place] (SBHLAB)[address] [place] [address] CULTURE ANAEROBICon 06-07-20 25 CULTURE ANAEROBIC Normal [facility] Comment on above: Performed By: #### L [id number] ####Graphic Coordinator: VASHTI BAILEY ([id number])[facility] ([facility])[address] [place] [address] [place] CULTURE, AEROBIC BACTERIA WI TH GRAM STAINon 06-07-2025 CULTURE, AEROBIC BACTERIA WITH GRAM STAIN Normal [facility] Comment on above: Performed By: #### L [id number] ####Graphic Coordinator: VASHTI BAILEY ([id number])[facility] ([facility])[address] [place] [address] Comprehensive metabolic 1998 panelon 06-07-2025 Albumin [Mass/Vol] 2.7 g/dL Low 3.4 - 4.8 g/dL [facility] ALP [Catalytic activity/Vol] 123 U/L 40 - 150 U/L [facility] ALT [Catalytic activity/Vol] 9 U/L NINF - 30 U/L [facility] Anion gap [Moles/Vol] 11 mmol/L 3 - 13 mmol/L [facility] AST [Catalytic activity/Vol] 19 U/L NINF - 34 U/L [facility] Bilirubin [Mass/Vol] 0.6 mg/dL NINF - 1.2 mg/dL [facility] Calcium [Mass/Vol] 9.4 mg/dL 8.8 - 10. 0 mg/dL [facility] Chloride [Moles/Vol] 96 mmol/L Low 98 - 10 7 mmol/L [facility] CO2 [Moles/Vol] 26 mmol/L 23 - 31 mmol/L [facility] Creatinine [Mass/Vol] 3.68 mg/dL High 0.57 - 1.11 mg/dL [facility] GFR/1.73 sq M.predicted (S/P/Bld) [Vol rate/Area] 12.2 mL/min Low - PINF [facility] Glucose [Mass/Vol] 119 mg/dL High 82 - 115 mg/dL [facility] Interpretation and review of laboratory results Abnormal [facility] Potassium [Moles/Vol] 3.7 mmol/L 3.5 - 5.1 mmol/L [facility] Protein [Mass/Vol] 6.8 g/dL 6.4 - 8.3 g/dL [facility] Sodium [Moles/Vol] 133 mmol/L Low 136 - 145 mmol/L [facility] Urea nitrogen [Mass/Vol] 40 mg/dL High 9 - 23 mg/dL [facility] Consulton 06-07-2025 Consult Normal [facility] LACTATE DEHYDROGENASE, BODY FLUIDon 06-07-2025 LACTATE DEHYDROGENASE, BODY FLUID BY LAC->PYR 91 U/L Normal [facility] Comment on above: Performed By: #### L [id number], [id number] ####Graphic Coordinator: VASHTI BAILEY ([id number])[facility] ([address] LaboratoryOrdered By: Benigno Christian on 06-07-2025 Fluid Nom (Body fld) Pleural Fluid S [facility] Laboratoryon 06-07-2025 Fluid Nom (Body fld) Pleural Fluid S [facility] Laboratory - Chemistry and C hemistry - challengeon 06-07-2025 Glucose [Mass/Vol] 140 mg/dL High 70 - 100 mg/dL [facility] Protein (Body fld) [Mass/Vol] 3.9 g/dL [facility] Glucose [Mass/Vol] 134 mg/dL High 70 - 100 mg/dL [facility] Glucose [Mass/Vol] 137 mg/dL High 70 - 100 mg/dL [facility] Laboratory - Chemistry and C hemistry - challengeOrdered By: Benigno Christian on 06-07-2025 LDH (Body fld) [Catalytic activity/Vol] 91 U/L [facility] No Panel Informationon 06-07 Interpretation and review of laboratory results Abnormal [facility] RADIOLOGY SYSTEM [facility] RADIOLOGY SYSTEM [facility] Interpretation and review of laboratory results Abnormal [facility] Radiology Study observation (narrative) [facility] Interpretation and review of laboratory results Abnormal [facility] No Panel InformationOrdered By: Benigno Christian on 06-07-2025 [facility] No Panel InformationOrdered By: Yoana Hayes on 06-07-2025 [facility] Work Phone: Nursing Noteon 06-07-2025 Nursing Note Normal [facility] Nursing Note Normal [facility] PROTEIN BODY FLUIDon 025 PROTEIN, BODY FLUID 3.9 g/dL Normal [facility] Comment on above: Performed By: #### L [id number], [id number] ####Graphic Coordinator: VASHTI BAIELY ([id number])[facility] ([facility] TYPE OF BODY FLUID Pleural Fluid Normal [facility] Comment on above: Result Comment: DORIAN Knight COMMENTS:This test was developed and its performance characteristics determined by [employer]. It has not been cleared or approved by the [place] Food and Drug Administration. This test was performed in a CLIA certified laboratory and is intended for clinical purposes.Pleural bdlur-sm-fvfzd protein ratio of >0.5 is one of Light???s criteria for an exudate. Heart failure associated misclassifications (by Light???s criteria) may be differentiated as transudative effusions by subsequently evaluating a flcfv-ex-blmpijk albumin gradient (>1.2 g/dL) and/or a tuvpl-sb-dlmff protein gradient (>3.1 g/dL). Performed By: #### L [id number], [id number] ####Graphic Coordinator: VASHTI BAILEY ([id number])[facility] ([facility])[address] [place] [address] Result Comment: DORIAN Knight COMMENTS:This test was developed and its performance characteristics determined by [employer]. It has not been cleared or approved by the US Food and Drug Administration. This test was performed in a CLIA certified laboratory and is intended for clinical purposes.Exudates are defined as meeting one of the following criteria: (a) Pleural owenl-sv-tttyp protein ratio of >0.5, (b) pleural qpixd-mi-kcxxn LDH ratio of >0.6, or (c)a pleural fluid LDH activity that is >2/3 the upper limit of a normal serum LDH activity (Light???s criteria). Progress Noteon 06-07-2025 Progress Note Normal [facility] Progress Note Normal [facility] Progress Note Normal [facility] Progress Note Normal [facility] Progress [facility] Normal [facility] Progress Note Normal [facility] Respiratory pathogens DNA an d RNA panel PATEL+non-probe (Lower resp)Ordered By: Nithya Carrasquillo on 06-07-2025 Acinetobacter baumannii complex Not detected Not Detected [facility] Adenovirus Not detected Not Detected [facility] th C. pneumoniae DNA PATEL+non-probe Ql (Lower resp) Not detected Not Detected [facility] Enterobacter cloacae complex Not detected Not Detected [facility] Escherichia coli Not detected Not Detected [facility] FLUAV RNA PATEL+non-probe Ql (Lower resp) Not detected Not Detected [facility] FLUBV RNA PATEL+non-probe Ql (Lower resp) Not detected Not Detected [facility] Haemophilus influenzae Not detected Not Detecte d [facility] Human Metapneumovirus Not detected Not Detected [facility] Human Rhinovirus/Enterovirus Not detected Not Detected [facility] Interpretation and review of laboratory results Abnormal [facility] Klebsiella (Enterobacter) aerogenes Not detected Not Detected [facility] Klebsiella oxytoca Not detected Not Detected [facility] Klebsiella pneumoniae Not detected Not Detected [facility] L. pneumophila DNA PATEL+non-probe Ql (Lower resp) Not detected Not Detected [facility] Moraxella catarrhalis Not detected Not Detected [facility] Mycoplasma pneumoniae Not detected Not Detected [facility] Parainfluenza virus Not detected Not Detected S [facility] Proteus spp Detected Abnormal Not Detected [facility] Pseudomonas aeruginosa Detected Abnormal Not Detected [facility] RSV RNA PATEL+probe Ql (Resp) Not detected Not Detected [facility] S. agalactiae DNA PATEL+non-probe Ql (Sput) Not detected Not Detected [facility] alth SARS-CoV-2 (COVID-19) RNA PATEL+non-probe Ql (Nph) Not detected Not Detected [facility] Serratia marcescens Detected Abnormal Not Detected [facility] Staphylococcus aureus Not detected Not Detected [facility] Streptococcus pneumoniae Not detected Not Detected [facility] Streptococcus pyogenes Not detected Not Detecte d [facility] US GUIDED THORACENTESISon [place] GUIDED THORACENTESIS Normal [facility] [id number] 06-06-2025 [id number] Normal [facility] BLOOD TYPE AND SCREEN GELon 06-06-2025 ABO GROUPING A Normal [facility] Comment on above: Performed By: #### L [id number] ####Graphic Coordinator: NATALIE GARCIA ([id number])[facility] ([facility])[address] RH TYPE IN BLOOD Positive Normal [facility] Comment on above: Performed By: #### L [id number] ####Graphic Coordinator: NATALIE GARCIA ([id number])[facility] ([facility])[address] CBC (HEMOGRAM)on 06-06-2025 Erythrocyte distribution width (RBC) [Ratio] 19.4 % High 11.5-15.0 [facility] Comment on above: Performed By: #### L [id number] ####Graphic Coordinator: NATALIE GARCIA ([id number])[facility] (SBHLAB)[address] Hematocrit (Bld) [Volume fraction] 24.5 % Low 35.0-47.0 [facility] Comment on above: Performed By: #### L [id number] ####Graphic Coordinator: NATALIE DENISETRICIA ([id number])[place] [facility]MAN[facility]US[facility] (SBHLAB)[address] Hemoglobin (Bld) [Mass/Vol] 7.2 g/dL Low 11.7-16.0 [facility] Comment on above: Performed By: #### L [id number] ####Graphic Coordinator: NATALIE GARCIA ([id number])[facility] (SBHLAB)[address] MCH (RBC) [Entitic mass] 25.4 pg Low 26.0-34.0 [facility] Comment on above: Performed By: #### L AB294 ####Graphic Coordinator: NATALIE GARCIA ([id number])[facility]ITALJosé Miguel RE[facility]EL[facility] (SBHLAB)[address] MCHC 29.4 % Low 30.5-36.0 [facility] Comment on above: Performed By: #### L AB294 ####Graphic Coordinator: NATALIE GARCIA ([id number])[place] (SBHLAB)[address] MCV (RBC) [Entitic vol] 86.3 fL Normal 77.0-99.0 [facility] Comment on above: Performed By: #### L AB294 ####Graphic Coordinator: NATALIE GARCIA ([id number])[facility]ITALJosé Miguel BARBMAGNUSN (SBHLAB)[address] Platelet mean volume (Bld) [Entitic vol] 10.1 fL Normal 9.0-12.7 [facility] Comment on above: Performed By: #### L [id number] ####Graphic Coordinator: NATALIE GARCIA ([id number])[facility] [place] (SBHLAB)[address] Platelets (Bld) [#/Vol] 197 10*3/uL Normal 140-440 [facility] Comment on above: Performed By: #### L AB294 ####Graphic Coordinator: NATALIE GARCIA ([id number])[facility] [place] (SBHLAB)[address] RBC (Bld) [#/Vol] 2.84 10*6/uL Low 3.80-5.20 [facility] Comment on above: Performed By: #### L [id number] ####Graphic Coordinator: NATALIE GARCIA ([id number])[facility] [place] (SBHLAB)[address] WBC (Bld) [#/Vol] 5.9 10*3/uL Normal 3.6-10.7 [facility] Comment on above: Performed By: #### L AB294 ####Graphic Coordinator: NATALIE GARCIA ([id number])[facility] [place] (SBHLAB)[address] [place] [address] COMPREHENSIVE METABOLIC PANE Florentin 06-06-2025 Albumin [Mass/Vol] 2.6 g/dL Low 3.4-4.8 [facility] Comment on above: Performed By: #### L AB17 ####Graphic Coordinator: NATALIE GARCIA ([id number])[facility]N (SBHLAB)[address] ALP [Catalytic activity/Vol] 113 U/L Normal 40-150 [facility] Comment on above: Performed By: #### L AB17 ####Graphic Coordinator: NATALIE GARCIA ([id number])[facility] [place] (SB[facility])[address] ALT [Catalytic activity/Vol] 12 U/L Normal <30 [facility] Comment on above: Performed By: #### L AB17 ####Graphic Coordinator: NATALIE GARCIA ([id number])[facility] [place] (SB[facility])[address] Anion gap [Moles/Vol] 10 mmol/L Normal 3-13 [facility] Comment on above: Performed By: #### L AB17 ####Graphic Coordinator: NATALIE GARCIA ([id number])[facility] [place] (SB[facility])[address] AST [Catalytic activity/Vol] 21 U/L Normal <34 [facility] Comment on above: Performed By: #### L AB17 ####Graphic Coordinator: NATALIE GARCIA ([id number])[facility] [place] (SB[facility]AB)[address] Bilirubin [Mass/Vol] 0.5 mg/dL Normal <1.2 [facility] Comment on above: Performed By: #### L AB17 ####Graphic Coordinator: NATALIE GARCIA ([id number])[facility] [place] (SBHLAB)[address] Calcium [Mass/Vol] 9.0 mg/dL Normal 8.8-10.0 [facility] Comment on above: Performed By: #### L AB17 ####Graphic Coordinator: NATALIE GARCIA ([id number])[facility] [place] (SB[facility])[address] Chloride [Moles/Vol] 98 mmol/L Normal 98-107 [facility] Comment on above: Performed By: #### L AB17 ####Graphic Coordinator: NATALIE GARCIA ([id number])[facility] [place] (SB[facility])[address] [place] [address] [place] CO2 [Moles/Vol] 26 mmol/L Normal 23-31 [facility] Comment on above: Performed By: #### L AB17 ####Graphic Coordinator: NATALIE GARCIA ([id number])[facility] [place] (SB[facility])[address] Creatinine [Mass/Vol] 2.79 mg/dL High 0.57-1.11 [facility] Comment on above: Performed By: #### L AB17 ####Graphic Coordinator: NATALIE GARCIA ([id number])[facility] ([facility])[address] GLOMERULAR FILTRATION RATE ML/MIN/1.73 SQ M.PREDICTED 17.0 mL/min/1.73m*2 Low >60.0 [facility] Comment on above: Result Comment: Calc ulation based on the Chronic Kidney Disease Epidemiology Collaboration (CKD-EPI) equation refit without adjustment for race Performed By: #### L AB17 ####Graphic Coordinator: NATALIE GARCIA ([id number])[facility] ([facility])[address] [place] [address] Glucose [Mass/Vol] 145 mg/dL High 82-115 [facility] Comment on above: Performed By: #### L AB17 ####Graphic Coordinator: NATALIE GARCIA ([id number])[facility] ([facility])[address] [place] [address] Potassium [Moles/Vol] 3.7 mmol/L Normal 3.5-5.1 [facility] Comment on above: Result Comment: [facility] potassium values may be up to 0.5 mmol/L lower than serum values. Performed By: #### L AB17 ####Graphic Coordinator: NATALIE GARCIA ([id number])[facility] ([facility])[address] [place] [address] Protein [Mass/Vol] 6.5 g/dL Normal 6.4-8.3 [facility] Comment on above: Performed By: #### L AB17 ####Graphic Coordinator: NATALIE GARCIA ([id number])[facility] ([facility])[address] [place] [address] Sodium [Moles/Vol] 134 mmol/L Low 136-145 [facility] Comment on above: Performed By: #### L AB17 ####Graphic Coordinator: NATALIE GARCIA ([id number])[facility] (SB[facility])[address] Urea nitrogen [Mass/Vol] 30 mg/dL High 9-23 [facility] Comment on above: Performed By: #### L AB17 ####Graphic Coordinator: NATALIE GARCIA ([id number])[facility]ITAL[facility] (SBHLAB)[address] [place] [address] [place] CULTURE, CATH TIPon 06-06-20 25 CULTURE, CATH TIP Normal [facility] Comment on above: Performed By: #### L [id number] ####Graphic Coordinator: VASHTI BAILEY ([id number])[facility] ([facility])[address] [place] [address] Laboratory - Chemistry and C hemistry - challengeon 06-06-2025 Glucose [Mass/Vol] 129 mg/dL High 70 - 100 mg/dL [facility] Glucose [Mass/Vol] 138 mg/dL High 70 - 100 mg/dL [facility] No Panel Informationon 06-06 Interpretation and review of laboratory results Abnormal [facility] Interpretation and review of laboratory results Abnormal [facility] Nursing Noteon 06-06-2025 Nursing Note Normal [facility] PNEUMONIA PCR PANELon 2024 PNEUMONIA PCR PANEL Normal [facility] Comment on above: Performed By: #### L [id number], [id number] ####Graphic Coordinator: VASHTI BAILEY ([id number])[facility] ([facility])[address] [place] [address] Progress Noteon 06-06-2025 Progress Note Normal [facility] Progress Note Normal [facility] Progress Note Normal [facility] Progress Note Normal [facility] Progress Note Normal [facility] RESPIRATORY CULTURE AND STAI Non 06-06-2025 RESPIRATORY CULTURE AND STAIN Normal [facility] Comment on above: Performed By: #### L AB900, [id number] ####Graphic Coordinator: VASHTI BAILEY ([id number])[facility])[address] [place] [address] XR Chest Single viewon 06-06 [facility] [id number] 06-05-2025 [id number] Normal [facility] CBC (HEMOGRAM)on 06-05-2025 Erythrocyte distribution width (RBC) [Ratio] 19.4 % High 11.5-15.0 [facility] Comment on above: Performed By: #### L [id number] ####Graphic Coordinator: NATALIE GARCIA ([id number])[facility]ITAL[facility] ([facility])[address] [place] [address] Hematocrit (Bld) [Volume fraction] 24.8 % Low 35.0-47.0 [facility] Comment on above: Performed By: #### L [id number] ####Graphic Coordinator: NATALIE GARCIA ([id number])[facility] ([facility])[address] [place] [address] Hemoglobin (Bld) [Mass/Vol] 7.6 g/dL Low 11.7-16.0 [facility] Comment on above: Performed By: #### L AB294 ####Graphic Coordinator: NATALIE GARCIA ([id number])[facility] ([facility])[address] [place] [address] MCH (RBC) [Entitic mass] 25.9 pg Low 26.0-34.0 [facility] Comment on above: Performed By: #### L AB294 ####Graphic Coordinator: NATALIE GARCIA ([id number])[facility] ([facility])[address] [place] [address] MCHC 30.6 % Normal 30.5-36.0 [facility] Comment on above: Performed By: #### L AB294 ####Graphic Coordinator: NATALIE GARCIA ([id number])[facility] ([facility])[address] [place] [address] MCV (RBC) [Entitic vol] 84.6 fL Normal 77.0-99.0 [facility] Comment on above: Performed By: #### L AB294 ####Graphic Coordinator: NATALIE GARCIA ([id number])[facility]A [facility] (SBHLAB)[address] Platelet mean volume (Bld) [Entitic vol] 9.7 fL Normal 9.0-12.7 [facility] Comment on above: Performed By: #### L AB294 ####Graphic Coordinator: NATALIE GARCIA ([id number])[facility]ITALA [facility] (SBHLAB)[address] Platelets (Bld) [#/Vol] 234 10*3/uL Normal 140-440 [facility] Comment on above: Performed By: #### L AB294 ####Graphic Coordinator: NATALIE GARCIA ([id number])[facility]ITAL[facility] (SBHLAB)[address] RBC (Bld) [#/Vol] 2.93 10*6/uL Low 3.80-5.20 [facility] Comment on above: Performed By: #### L AB294 ####Graphic Coordinator: NATALIE GARCIA ([id number])[facility]ITALJos[facility] (SBHLAB)[address] WBC (Bld) [#/Vol] 5.7 10*3/uL Normal 3.6-10.7 [facility] Comment on above: Performed By: #### L AB294 ####Graphic Coordinator: NATALIE GARCIA ([id number])[facility]A [facility] (SBHLAB)[address] COMPREHENSIVE METABOLIC PANE Florentin 06-05-2025 Albumin [Mass/Vol] 2.7 g/dL Low 3.4-4.8 [facility] Comment on above: Performed By: #### L AB17 ####Graphic Coordinator: NATALIE GARCIA ([id number])[facility]ITALJos[facility] Miguel [facility] (SBHLAB)[address] ALP [Catalytic activity/Vol] 119 U/L Normal 40-150 [facility] Comment on above: Performed By: #### L AB17 ####Graphic Coordinator: NATALIE GARCIA ([id number])[facility] [place] (SBHLAB)[address] ALT [Catalytic activity/Vol] 13 U/L Normal <30 [facility] Comment on above: Performed By: #### L AB17 ####Graphic Coordinator: NATALIE GARCIA ([id number])[facility]ITALA [facility] (SBHLAB)[address] Anion gap [Moles/Vol] 10 mmol/L Normal 3-13 [facility] Comment on above: Performed By: #### L AB17 ####Graphic Coordinator: NATALIE GARCIA ([id number])[facility] (HLAB)[address] AST [Catalytic activity/Vol] 21 U/L Normal <34 [facility] Comment on above: Performed By: #### L AB17 ####Graphic Coordinator: NATALIE GARCIA ([id number])[facility]A [place] (SBHLAB)[address] Bilirubin [Mass/Vol] 0.7 mg/dL Normal <1.2 [facility] Comment on above: Performed By: #### L AB17 ####Graphic Coordinator: NATALIE GARCIA ([id number])[facility]BGALL[facility]ERN (HLAB)[address] Calcium [Mass/Vol] 8.9 mg/dL Normal 8.8-10.0 [facility] Comment on above: Performed By: #### L AB17 ####Graphic Coordinator: NATALIE GARCIA ([id number])[facility] (HLAB)[address] Chloride [Moles/Vol] 100 mmol/L Normal 98-107 [facility] Comment on above: Performed By: #### L AB17 ####Graphic Coordinator: NATALIE GARCIA ([id number])[facility] [place] (SBHLAB)[address] CO2 [Moles/Vol] 27 mmol/L Normal 23-31 [facility] Comment on above: Performed By: #### L AB17 ####Graphic Coordinator: NATALIE GARCIA ([id number])[facility]A [facility] (SBHLAB)[address] Creatinine [Mass/Vol] 1.79 mg/dL High 0.57-1.11 [facility] Comment on above: Performed By: #### L AB17 ####Graphic Coordinator: NATALIE GARCIA ([id number])[facility]A [facility] (SBHLAB)[address] GLOMERULAR FILTRATION RATE ML/MIN/1.73 SQ M.PREDICTED 28.9 mL/min/1.73m*2 Low >60.0 [facility] Comment on above: Result Comment: Calc ulation based on the Chronic Kidney Disease Epidemiology Collaboration (CKD-EPI) equation refit without adjustment for race Performed By: #### L AB17 ####Graphic Coordinator: NATALIE GARCIA ([id number])[facility] (SBHLAB)[address] [place] [address] Glucose [Mass/Vol] 67 mg/dL Low 82-115 [facility] Comment on above: Performed By: #### L AB17 ####Graphic Coordinator: NATALIE GARCIA ([id number])[facility]ERN (SBHLAB)[address] Potassium [Moles/Vol] 3.9 mmol/L Normal 3.5-5.1 [facility] Comment on above: Result Comment: [facility] potassium values may be up to 0.5 mmol/L lower than serum values. Performed By: #### L AB17 ####Graphic Coordinator: NATALIE GARCIA ([id number])[facility] (SBHLAB)[address] Protein [Mass/Vol] 6.7 g/dL Normal 6.4-8.3 [facility] Comment on above: Performed By: #### L AB17 ####Graphic Coordinator: NATALIE GARCIA ([id number])[facility] (HLAB)[address] Sodium [Moles/Vol] 137 mmol/L Normal 136-145 [facility] Comment on above: Performed By: #### L AB17 ####Graphic Coordinator: NATALIE GARCIA ([id number])[facility] ([facility])[address] [place] [address] Urea nitrogen [Mass/Vol] 18 mg/dL Normal 9-23 [facility] Comment on above: Performed By: #### L AB17 ####Graphic Coordinator: NATALIE GARCIA ([id number])[facility] ([facility])[address] [place] [address] Progress Noteon 06-05-2025 Progress Note Normal [facility] Progress Note Normal [facility] Progress Note Normal [facility] Progress Note Normal [facility] [id number] 06-04-2025 [id number] Normal [facility] CBC (HEMOGRAM)on 06-04-2025 Erythrocyte distribution width (RBC) [Ratio] 19.5 % High 11.5-15.0 [facility] Comment on above: Performed By: #### L [id number] ####Graphic Coordinator: NATALIE GARCIA ([id number])[facility] (HLAB)[address] [place] [address] Hematocrit (Bld) [Volume fraction] 23.8 % Low 35.0-47.0 [facility] Comment on above: Performed By: #### L AB294 ####Graphic Coordinator: NATALIE GARCIA ([id number])[facility] ([facility])[address] [place] [address] Hemoglobin (Bld) [Mass/Vol] 7.4 g/dL Low 11.7-16.0 [facility] Comment on above: Performed By: #### L AB294 ####Graphic Coordinator: NATALIE DENISETRICIA ([id number])[facility]ITALJos[facility] REHMANELIAS (SBHLAB)[address] MCH (RBC) [Entitic mass] 25.7 pg Low 26.0-34.0 [facility] Comment on above: Performed By: #### L AB294 ####Graphic Coordinator: NATALIE DENISETRICIA ([id number])[facility]OS[facility]ITALJosé Miguel REHMANGALLUP INDIAN MEDICAL CENTERLaurel (SBHLAB)[address] MCHC 31.1 % Normal 30.5-36.0 [facility] Comment on above: Performed By: #### L AB294 ####Graphic Coordinator: NATALIE DENISETRICIA ([id number])[facility]ITALJos[facility] Miguel MONTENEGROLaurel (SBHLAB)[address] MCV (RBC) [Entitic vol] 82.6 fL Normal 77.0-99.0 S [facility] Comment on above: Performed By: #### L AB294 ####Graphic Coordinator: NATALIE GARCIA ([id number])[facility]ITALJos[facility] Miguel [facility] HOSPITALLa[facility] (SBHLAB)[address] Platelet mean volume (Bld) [Entitic vol] 9.8 fL Normal 9.0-12.7 [facility] Comment on above: Performed By: #### L AB294 ####Graphic Coordinator: NATALIE GARCIA ([id number])[facility]ITALJos[facility] Miguel REHMANGALLUP INDI[facility] MEDICAL CENTERN (SBHLAB)[address] Platelets (Bld) [#/Vol] 247 10*3/uL Normal 140-440 [facility] Comment on above: Performed By: #### L AB294 ####Graphic Coordinator: NATALIE GARCIA ([id number])[facility] (SBHLAB)[address] RBC (Bld) [#/Vol] 2.88 10*6/uL Low 3.80-5.20 [facility] Comment on above: Performed By: #### L AB294 ####Graphic Coordinator: NATALIE SIMONErlindaTRICIA ([id number])[facility]A [place] (SBHLAB)[address] WBC (Bld) [#/Vol] 6.2 10*3/uL Normal 3.6-10.7 [facility] Comment on above: Performed By: #### L AB294 ####Graphic Coordinator: NATALIE DENSIETRICIA ([id number])[facility] [place] (SBHLAB)[address] COMPREHENSIVE METABOLIC PANE Florentin 06-04-2025 Albumin [Mass/Vol] 2.4 g/dL Low 3.4-4.8 [facility] Comment on above: Performed By: #### L AB103, LAB17 ####Graphic Coordinator: NATALIE GARCIA ([id number])[facility] [place] (SBHLAB)[address] ALP [Catalytic activity/Vol] 130 U/L Normal 40-150 [facility] Comment on above: Performed By: #### L AB103, LAB17 ####Graphic Coordinator: NATALIE GARCIA ([id number])[facility]ITALA [facility]BGALLUP INDI[facility] MED[facility]ENTERN (SBHLAB)[address] ALT [Catalytic activity/Vol] 11 U/L Normal <30 [facility] Comment on above: Performed By: #### L AB103, LAB17 ####Graphic Coordinator: NATALIE GARCIA ([id number])[facility]A [facility]BGALLUP INDI[facility] MEDICAL CENTERN (SBHLAB)[address] Anion gap [Moles/Vol] 11 mmol/L Normal 3-13 [facility] Comment on above: Performed By: #### L AB103, LAB17 ####Graphic Coordinator: NATALIE GARCIA ([id number])[facility] [place] (SBHLAB)[address] AST [Catalytic activity/Vol] 19 U/L Normal <34 [facility] Comment on above: Performed By: #### L AB103, LAB17 ####Graphic Coordinator: NATALIE GARCIA ([id number])[facility] [place] (SBHLAB)[address] Bilirubin [Mass/Vol] 0.7 mg/dL Normal <1.2 [facility] Comment on above: Performed By: #### L AB103, LAB17 ####Graphic Coordinator: NATALIE GARCIA ([id number])[facility] [place] (SBHLAB)[address] Calcium [Mass/Vol] 9.0 mg/dL Normal 8.8-10.0 [facility] Comment on above: Performed By: #### L AB103, LAB17 ####Graphic Coordinator: NATALIE GARCIA ([id number])[facility] [place] (SBHLAB)[address] Chloride [Moles/Vol] 93 mmol/L Low 98-107 [facility] Comment on above: Performed By: #### L AB103, LAB17 ####Graphic Coordinator: NATALIE GARCIA ([id number])[facility] [place] (SBHLAB)[address] CO2 [Moles/Vol] 26 mmol/L Normal 23-31 [facility] Comment on above: Performed By: #### L AB103, LAB17 ####Graphic Coordinator: NATALIE GARCIA ([id number])[facility] [place] (SBHLAB)[address] Creatinine [Mass/Vol] 3.51 mg/dL High 0.57-1.11 [facility] Comment on above: Performed By: #### L AB103, LAB17 ####Graphic Coordinator: NATALIE GARCIA ([id number])[facility] [place] (SBHLAB)[address] GLOMERULAR FILTRATION RATE ML/MIN/1.73 SQ M.PREDICTED 12.9 mL/min/1.73m*2 Low >60.0 [facility] Comment on above: Result Comment: Calc ulation based on the Chronic Kidney Disease Epidemiology Collaboration (CKD-EPI) equation refit without adjustment for race Performed By: #### L AB103, LAB17 ####Graphic Coordinator: NATALIE GARCIA ([id number])[facility] [place] (SBHLAB)[address] Glucose [Mass/Vol] 147 mg/dL High 82-115 [facility] Comment on above: Performed By: #### L AB103, LAB17 ####Graphic Coordinator: NATALIE GARCIA ([id number])[facility] [place] (SBHLAB)[address] Potassium [Moles/Vol] 3.4 mmol/L Low 3.5-5.1 [facility] Comment on above: Result Comment: [facility] potassium values may be up to 0.5 mmol/L lower than serum values. Performed By: #### L 103, LAB17 ####Graphic Coordinator: NATALIE GARCIA ([id number])[facility] [place] (SBHLAB)[address] Protein [Mass/Vol] 6.5 g/dL Normal 6.4-8.3 [facility] Comment on above: Performed By: #### L AB103, LAB17 ####Graphic Coordinator: NATALIE GARCIA ([id number])[facility] [place] (SBHLAB)[address] [place] [address] [place] Sodium [Moles/Vol] 130 mmol/L Low 136-145 [facility] Comment on above: Performed By: #### L AB103, LAB17 ####Graphic Coordinator: NATALIE GARCIA ([id number])[facility] [place] (SBHLAB)[address] [place] [address] [place] Urea nitrogen [Mass/Vol] 43 mg/dL High 9-23 [facility] Comment on above: Performed By: #### L AB103, LAB17 ####Graphic Coordinator: NATALIE GARCIA ([id number])[facility] [place] (SBHLAB)[address] Consulton 06-04-2025 Consult Normal [facility] Consult Normal [facility] MAGNESIUMon 06-04-2025 Magnesium [Mass/Vol] 2.1 mg/dL Normal 1.6-2.6 [facility] Comment on above: Result Comment: DORIAN Knight COMMENTS:Higher values can be expected in females during menses. Performed By: #### L AB103, LAB17 ####Graphic Coordinator: NATALIE GARCIA ([id number])[facility] ([facility])[address] Nursing Noteon 06-04-2025 Nursing Note Normal [facility] Progress Noteon 06-04-2025 Progress Note Normal [facility] Progress Note Normal [facility] CBC (HEMOGRAM)on 06-03-2025 Erythrocyte distribution width (RBC) [Ratio] 19.6 % High 11.5-15.0 [facility] Comment on above: Performed By: #### L AB294 ####Graphic Coordinator: NATALIE GARCIA ([id number])[facility] ([facility])[address] [place] [address] Hematocrit (Bld) [Volume fraction] 23.3 % Low 35.0-47.0 [facility] Comment on above: Performed By: #### L AB294 ####Graphic Coordinator: NATALIE GARCIA ([id number])[facility] ([facility])[address] [place] [address] Hemoglobin (Bld) [Mass/Vol] 7.2 g/dL Low 11.7-16.0 [facility] Comment on above: Performed By: #### L AB294 ####Graphic Coordinator: NATALIE GARCIA ([id number])[facility] ([facility])[address] [place] [address] MCH (RBC) [Entitic mass] 25.8 pg Low 26.0-34.0 [facility] Comment on above: Performed By: #### L AB294 ####Graphic Coordinator: NATALIE SIMONErlindaTRICIA ([id number])[place] [facility] (SBHLAB)[address] MCHC 30.9 % Normal 30.5-36.0 [facility] Comment on above: Performed By: #### L AB294 ####Graphic Coordinator: NATALIEMELODIE GARCIA ([id number])[facility]ITALJos[facility] Miguel [place]ENEGRON (SBHLAB)[address] MCV (RBC) [Entitic vol] 83.5 fL Normal 77.0-99.0 [facility] Comment on above: Performed By: #### L AB294 ####Graphic Coordinator: NATALIEMELODIE GARCIA ([id number])[facility]ITALJos[facility] (SBHLAB)[address] Platelet mean volume (Bld) [Entitic vol] 9.7 fL Normal 9.0-12.7 [facility] Comment on above: Performed By: #### L AB294 ####Graphic Coordinator: NATALIE JOSE ([id number])[facility]ITALJosé Miguel REHMANGALLUP INDIAN MEDICAL CENTERLaurel (SBHLAB)[address] Platelets (Bld) [#/Vol] 229 10*3/uL Normal 140-440 [facility] Comment on above: Performed By: #### L AB294 ####Graphic Coordinator: NATALIE DENISETRICIA ([id number])[facility]ITALJos[facility] MONTENEGROLaurel (SBHLAB)[address] RBC (Bld) [#/Vol] 2.79 10*6/uL Low 3.80-5.20 [facility] Comment on above: Performed By: #### L AB294 ####Graphic Coordinator: NATALIE JOSE ([id number])[facility]ITALJos[facility] Miguel REHMANGALLUP [facility]ERN (SBHLAB)[address] WBC (Bld) [#/Vol] 6.1 10*3/uL Normal 3.6-10.7 [facility] Comment on above: Performed By: #### L AB294 ####Graphic Coordinator: NATALIE GARCIA ([id number])[facility] [place] (SBHLAB)[address] COMPREHENSIVE METABOLIC PANE Florentin 06-03-2025 Albumin [Mass/Vol] 2.4 g/dL Low 3.4-4.8 [facility] Comment on above: Performed By: #### L AB103, LAB17 ####Graphic Coordinator: NATALIE GARCIA ([id number])[facility] [place] (SBHLAB)[address] ALP [Catalytic activity/Vol] 130 U/L Normal 40-150 [facility] Comment on above: Performed By: #### L AB103, LAB17 ####Graphic Coordinator: NATALIE GARCIA ([id number])[facility]A BARBGALLUP [facility]DI[facility] MED[facility]ENTERN (SBHLAB)[address] ALT [Catalytic activity/Vol] 11 U/L Normal <30 [facility] Comment on above: Performed By: #### L AB103, LAB17 ####Graphic Coordinator: NATALIE GARCIA ([id number])[facility] [place] (SBHLAB)[address] Anion gap [Moles/Vol] 9 mmol/L Normal 3-13 [facility] Comment on above: Performed By: #### L AB103, LAB17 ####Graphic Coordinator: NATALIE GARCIA ([id number])[facility] [place] (SBHLAB)[address] AST [Catalytic activity/Vol] 27 U/L Normal <34 [facility] Comment on above: Performed By: #### L AB103, LAB17 ####Graphic Coordinator: NATALIE GARCIA ([id number])[facility]A [facility]BGALLUP [facility]DI[facility] MED[facility]ENTERN (SBHLAB)[address] Bilirubin [Mass/Vol] 0.8 mg/dL Normal <1.2 [facility] Comment on above: Performed By: #### L AB103, LAB17 ####Graphic Coordinator: NATALIE GARCIA ([id number])[facility] [place] (SBHLAB)[address] Calcium [Mass/Vol] 8.7 mg/dL Low 8.8-10.0 [facility] Comment on above: Performed By: #### L AB103, LAB17 ####Graphic Coordinator: NATALIE GARCIA ([id number])[facility] [place] (SBHLAB)[address] Chloride [Moles/Vol] 95 mmol/L Low 98-107 [facility] Comment on above: Performed By: #### L AB103, LAB17 ####Graphic Coordinator: NATALIE GARCIA ([id number])[facility] [place] (SBHLAB)[address] CO2 [Moles/Vol] 27 mmol/L Normal 23-31 [facility] Comment on above: Performed By: #### L AB103, LAB17 ####Graphic Coordinator: NATALIE GARCIA ([id number])[facility]A [place] (SBHLAB)[address] Creatinine [Mass/Vol] 2.39 mg/dL High 0.57-1.11 [facility] Comment on above: Performed By: #### L AB103, LAB17 ####Graphic Coordinator: NATALIE GARCIA ([id number])[facility] [place] ([facility])155 [place] [address] [place] GLOMERULAR FILTRATION RATE ML/MIN/1.73 SQ M.PREDICTED 20.4 mL/min/1.73m*2 Low >60.0 [facility] Comment on above: Result Comment: Calc ulation based on the Chronic Kidney Disease Epidemiology Collaboration (CKD-EPI) equation refit without adjustment for race Performed By: #### L AB103, LAB17 ####Graphic Coordinator: NATALIE GARCIA ([id number])[facility] [place] ([facility])[address] [place] [address] [place] Glucose [Mass/Vol] 145 mg/dL High 82-115 [facility] Comment on above: Performed By: #### L AB103, LAB17 ####Graphic Coordinator: NATALIE GARCIA ([id number])[facility] [place] ([facility])[address] Potassium [Moles/Vol] 3.3 mmol/L Low 3.5-5.1 [facility] Comment on above: Result Comment: [facility] potassium values may be up to 0.5 mmol/L lower than serum values. Performed By: #### L AB103, LAB17 ####Graphic Coordinator: NATALIE GARCIA ([id number])[facility] [place] (SBHLAB)[address] Protein [Mass/Vol] 6.4 g/dL Normal 6.4-8.3 [facility] Comment on above: Performed By: #### L AB103, LAB17 ####Graphic Coordinator: NATALIE GARCIA ([phone])[facility] [place] (SB[facility])[address] Sodium [Moles/Vol] 131 mmol/L Low 136-145 [facility] Comment on above: Performed By: #### L AB103, LAB17 ####Graphic Coordinator: NATALIE GARCIA ([id number])[facility] [place] (SB[facility]AB)[address] Urea nitrogen [Mass/Vol] 31 mg/dL High 9-23 [facility] Comment on above: Performed By: #### L AB103, LAB17 ####Graphic Coordinator: NATALIE DENISETRICIA ([id number])[facility] [place] (SB[facility]AB)[address] IRON AND TIBCon 06-03-2025 IRON BINDING CAPACITY 184 ug/dL Low 250-450 [facility] Comment on above: Performed By: #### L AB829 ####Graphic Coordinator: NATALIE DENISETRICIA ([id number])[facility] [place] (SB[facility])[address] IRON SATURATION 21.2 % Normal 20.0-50.0 [facility] Comment on above: Performed By: #### L AB829 ####Graphic Coordinator: NATALIE GARCIA ([id number])[facility] ([facility])[address] [place] [address] IRON, TOTAL 39 ug/dL Low 50-170 [facility] Comment on above: Performed By: #### L AB829 ####Graphic Coordinator: NATALIE GARCIA ([id number])[facility] ([facility])[address] [place] [address] MAGNESIUMon 06-03-2025 Magnesium [Mass/Vol] 2.0 mg/dL Normal 1.6-2.6 [facility] Comment on above: Result Comment: DORIAN Knight COMMENTS:Higher values can be expected in females during menses. Performed By: #### L AB103, LAB17 ####Graphic Coordinator: NATALIE GARCIA ([id number])[facility] ([facility])[address] [place] [address] Progress Noteon 06-03-2025 Progress Note Normal [facility] Progress Note Normal [facility] C. DIFFICILE BY PCR WITH REF ALYSSA TO EIAon 06-02-2025 C. DIFFICILE BY PCR WITH REFLEX TO EIA Normal [facility] Comment on above: Performed By: #### L AB257, [id number], [id number] ####Graphic Coordinator: VASHTI BAILEY ([id number])[facility] ([facility])[address] [place] [address] CBC (HEMOGRAM)on 06-02-2025 Erythrocyte distribution width (RBC) [Ratio] 19.5 % High 11.5-15.0 [facility] Comment on above: Performed By: #### L AB294 ####Graphic Coordinator: NATALIE GARCIA ([id number])[facility] ([facility])[address] [place] [address] Hematocrit (Bld) [Volume fraction] 23.7 % Low 35.0-47.0 [facility] Comment on above: Performed By: #### L AB294 ####Graphic Coordinator: NATALIE GARCIA ([id number])[facility]ITAL[facility] ([facility])[address] Hemoglobin (Bld) [Mass/Vol] 7.4 g/dL Low 11.7-16.0 [facility] Comment on above: Performed By: #### L AB294 ####Graphic Coordinator: NATALIE GARCIA ([id number])[facility] [place] (SBAB)[address] MCH (RBC) [Entitic mass] 26.0 pg Normal 26.0-34.0 [facility] Comment on above: Performed By: #### L AB294 ####Graphic Coordinator: NATALIE GARCIA ([id number])[facility]ITAL[facility] ([facility])[address] MCHC 31.2 % Normal 30.5-36.0 [facility] Comment on above: Performed By: #### L AB294 ####Graphic Coordinator: NATALIE GARCIA ([id number])[facility]ITAL[facility] Miguel [facility]ITAL[facility] ([facility])[address] MCV (RBC) [Entitic vol] 83.2 fL Normal 77.0-99.0 [facility] Comment on above: Performed By: #### L AB294 ####Graphic Coordinator: NATALIE GARCIA ([id number])[facility]ITALJos[facility] Miguel [facility]ITAL[facility] ([facility])[address] Platelet mean volume (Bld) [Entitic vol] 10.0 fL Normal 9.0-12.7 [facility] Comment on above: Performed By: #### L AB294 ####Graphic Coordinator: NATALIE GARCIA ([id number])[facility]ITALJos[facility]OS[facility]IT[facility] ([facility])[address] Platelets (Bld) [#/Vol] 231 10*3/uL Normal 140-440 [facility] Comment on above: Performed By: #### L AB294 ####Graphic Coordinator: NATALIE GARCIA ([id number])[facility]ITAL[facility] [place] (SBHLAB)[address] RBC (Bld) [#/Vol] 2.85 10*6/uL Low 3.80-5.20 [facility] Comment on above: Performed By: #### L AB294 ####Graphic Coordinator: NATALIE GARCIA ([id number])[facility] [place] (SB[facility])[address] WBC (Bld) [#/Vol] 5.1 10*3/uL Normal 3.6-10.7 [facility] Comment on above: Performed By: #### L AB294 ####Graphic Coordinator: NATALIE GARCIA ([id number])[facility] (SBHLAB)[address] COMPREHENSIVE METABOLIC PANE Florentin 06-02-2025 Albumin [Mass/Vol] 2.6 g/dL Low 3.4-4.8 [facility] Comment on above: Performed By: #### L AB17, [id number] ####Graphic Coordinator: NATALIE GARCIA ([id number])[facility]ITALJosé Miguel [facility]HMANGALLUP INDIAN MED[facility]ENTERN (SBHLAB)[address] ALP [Catalytic activity/Vol] 129 U/L Normal 40-150 [facility] Comment on above: Performed By: #### L AB17, [id number] ####Graphic Coordinator: NATALIE GARCIA ([id number])[facility]ALLUP [facility]ERN (SBHLAB)[address] ALT [Catalytic activity/Vol] 10 U/L Normal <30 [facility] Comment on above: Performed By: #### L AB17, [id number] ####Graphic Coordinator: NATALIE GARCIA ([id number])[facility] (SBHLAB)[address] Anion gap [Moles/Vol] 11 mmol/L Normal 3-13 [facility] Comment on above: Performed By: #### L AB17, [id number] ####Graphic Coordinator: NATALIE GARCIA ([id number])[facility] [place] (SB[facility])[address] AST [Catalytic activity/Vol] 23 U/L Normal <34 [facility] Comment on above: Performed By: #### L AB17, [id number] ####Graphic Coordinator: NATALIE GARCIA ([id number])[facility] [place] (SB[facility])[address] Bilirubin [Mass/Vol] 1.1 mg/dL Normal <1.2 [facility] Comment on above: Performed By: #### L AB17, [id number] ####Graphic Coordinator: NATALIE GARCIA ([id number])[facility]A [facility] (SBHLAB)[address] Calcium [Mass/Vol] 8.8 mg/dL Normal 8.8-10.0 [facility] Comment on above: Performed By: #### L AB17, [id number] ####Graphic Coordinator: NATALIE GARCIA ([id number])[facility] [place] (SB[facility])[address] Chloride [Moles/Vol] 98 mmol/L Normal 98-107 [facility] Comment on above: Performed By: #### L AB17, [id number] ####Graphic Coordinator: NATALIE GARCIA ([id number])[facility] [place] (SB[facility])[address] [place] [address] [place] CO2 [Moles/Vol] 28 mmol/L Normal 23-31 [facility] Comment on above: Performed By: #### L AB17, ICE106 ####Graphic Coordinator: NATALIE GARCIA ([id number])[facility] [place] (SB[facility])[address] Creatinine [Mass/Vol] 1.57 mg/dL High 0.57-1.11 [facility] Comment on above: Performed By: #### L AB17, [id number] ####Graphic Coordinator: NATALIE GARCIA ([id number])[facility] (SBHLAB)[address] [place] [address] [place] GLOMERULAR FILTRATION RATE ML/MIN/1.73 SQ M.PREDICTED 33.8 mL/min/1.73m*2 Low >60.0 [facility] Comment on above: Result Comment: Calc ulation based on the Chronic Kidney Disease Epidemiology Collaboration (CKD-EPI) equation refit without adjustment for race Performed By: #### L AB17, [id number] ####Graphic Coordinator: NATALIE GARCIA ([id number])[facility] ([facility])[address] Glucose [Mass/Vol] 94 mg/dL Normal 82-115 [facility] Comment on above: Performed By: #### L AB17, [id number] ####Graphic Coordinator: NATALIE GARCIA ([id number])[facility] ([facility])[address] [place] [address] Potassium [Moles/Vol] 3.1 mmol/L Low 3.5-5.1 [facility] Comment on above: Result Comment: [facility] potassium values may be up to 0.5 mmol/L lower than serum values. Performed By: #### L AB17, [id number] ####Graphic Coordinator: NATALIE GARCIA ([id number])[facility] (SBHLAB)[address] [place] [address] [place] Protein [Mass/Vol] 6.5 g/dL Normal 6.4-8.3 [facility] Comment on above: Performed By: #### L AB17, FBR166 ####Graphic Coordinator: NATALIE GARCIA ([id number])[facility] ([facility])[address] Sodium [Moles/Vol] 137 mmol/L Normal 136-145 [facility] Comment on above: Performed By: #### L AB17, [id number] ####Graphic Coordinator: NATALIE GARCIA ([id number])[facility] (SBHLAB)[address] Urea nitrogen [Mass/Vol] 20 mg/dL Normal 9-23 [facility] Comment on above: Performed By: #### L AB17, [id number] ####Graphic Coordinator: NATALIE DENISETRICIA ([id number])[facility] (SBHLAB)[address] Consulton 06-02-2025 Consult Normal [facility] FERRITINon 06-02-2025 Ferritin [Mass/Vol] 613 ng/mL High 5-204 [facility] Comment on above: Result Comment: DORIAN Knight COMMENTS:Ferritin levels below 10 ng/mL have been reported as indicative of iron deficiency anemia. Performed By: #### L AB69, LAB68, LAB67 ####Graphic Coordinator: NATALIE DENISETRICIA ([id number])[facility] (SBHL[facility])[address] FOLATEon 06-02-2025 FOLATE RESULT 12.6 ng/mL Normal 7.0-31.4 [facility] Comment on above: Performed By: #### L AB69, LAB68, LAB67 ####Graphic Coordinator: NATALIE GARCIA ([phone])[facility] (SBHLAB)[address] GASTROINTESTINAL PCR PANELon 06-02-2025 GASTROINTESTINAL PCR PANEL Normal [facility] Comment on above: Performed By: #### L AB257, [id number], [id number] ####Graphic Coordinator: VASHTI BAILEY ([id number])[facility] ([facility])[address] [place] [address] HEPATITIS B SURFACE ANTIBODY on 06-02-2025 HEPATITIS B VIRUS SURFACE AB <8.0 Normal [facility] Comment on above: Result Comment: DORIAN R COMMENTS:Interpretation:<8.0 Non-Reactive8.0-11.9 Equivocal>= 12.0 Ab DetectedNote: If an equivocal result is interpreted, an antibody status is unable to be determined. Collect new specimen if clinically indicated. Performed By: #### L AB472, [id number] ####Graphic Coordinator: VASHTI BAILEY ([id number])[facility])[address] [place] [address] HEPATITIS B SURFACE ANTIGENo n 06-02-2025 HEPATITIS B VIRUS SURFACE AG Not detected Normal Not Detected [facility] Comment on above: Performed By: #### L AB472, [id number] ####Graphic Coordinator: VASHTI BAILEY ([id number])[facility] ([facility])[address] [place] [address] LAB ONLY - C DIFF EIAon LAB ONLY - C DIFF EIA C DIFFICILE TOXINS A+B, EIA (A) Reference Positive Negative ORDER COMMENTS: (A) C. Difficile infection is likely present. Correlate with other clinical data. Methodology: Enzyme Immunoassay Normal [facility] Comment on above: Performed By: #### L AB257, [id number], [id number] ####Graphic Coordinator: VASHTI BAILEY ([id number])[facility] ([facility])[address] [place] [address] MAGNESIUMon 06-02-2025 Magnesium [Mass/Vol] 2.0 mg/dL Normal 1.6-2.6 [facility] Comment on above: Result Comment: DORIAN Knight COMMENTS:Higher values can be expected in females during menses. Performed By: #### L AB17, ONM590 ####Graphic Coordinator: NATALIE GARCIA ([id number])[facility] ([facility])[address] [place] [address] Progress Noteon 06-02-2025 Progress Note Normal [facility] Progress Note Normal [facility] Progress Note Normal [facility] Progress Note Normal [facility] VITAMIN B12on 06-02-2025 Cobalamin (Vitamin B12) [Mass/Vol] 1032 pg/mL High 213-816 [facility] Comment on above: Performed By: #### L AB69, LAB68, LAB67 ####Graphic Coordinator: NATALIE GARCIA ([id number])[facility] ([facility])[address] BASIC METABOLIC PANELon 09-0 Anion gap [Moles/Vol] 11 mmol/L Normal 3-13 [facility] Comment on above: Performed By: #### L AB103, [id number], LAB15, LAB20 ####Graphic Coordinator: NATALIE GARCIA ([id number])[facility] [place] ([facility])[address] Calcium [Mass/Vol] 9.4 mg/dL Normal 8.8-10.0 [facility] Comment on above: Performed By: #### L AB103, [id number], LAB15, LAB20 ####Graphic Coordinator: NATALIE GARCIA ([id number])[facility] [place] ([facility])[address] Chloride [Moles/Vol] 93 mmol/L Low 98-107 [facility] Comment on above: Performed By: #### L AB103, [id number], LAB15, LAB20 ####Graphic Coordinator: NATALIE GARCIA ([id number])[facility] [place] ([facility])[address] CO2 [Moles/Vol] 30 mmol/L Normal 23-31 [facility] Comment on above: Performed By: #### L AB103, [id number], LAB15, LAB20 ####Graphic Coordinator: NATALIE GARCIA ([id number])[facility] [place] ([facility])[address] Creatinine [Mass/Vol] 2.34 mg/dL High 0.57-1.11 [facility] Comment on above: Performed By: #### L AB103, [id number], LAB15, LAB20 ####Graphic Coordinator: NATALIE GARCIA ([id number])[facility] [place] ([facility])[address] GLOMERULAR FILTRATION RATE ML/MIN/1.73 SQ M.PREDICTED 21.0 mL/min/1.73m*2 Low >60.0 [facility] Comment on above: Result Comment: Calc ulation based on the Chronic Kidney Disease Epidemiology Collaboration (CKD-EPI) equation refit without adjustment for race Performed By: #### L AB103, [id number], LAB15, LAB20 ####Graphic Coordinator: NATALIE GARCIA ([id number])[facility] ([facility])[address] Glucose [Mass/Vol] 174 mg/dL High 82-115 [facility] Comment on above: Performed By: #### L AB103, [id number], LAB15, LAB20 ####Graphic Coordinator: NATALIE GARCIA ([id number])[facility] ([facility])[address] Potassium [Moles/Vol] 3.5 mmol/L Normal 3.5-5.1 [facility] Comment on above: Result Comment: [facility] potassium values may be up to 0.5 mmol/L lower than serum values. Performed By: #### L AB103, [id number], LAB15, LAB20 ####Graphic Coordinator: NATALIE GARCIA ([id number])[facility] ([facility])[address] Sodium [Moles/Vol] 134 mmol/L Low 136-145 [facility] Comment on above: Performed By: #### L AB103, [id number], LAB15, LAB20 ####Graphic Coordinator: NATALIE GARCIA ([id number])[facility] ([facility])[address] [place] [address] [place] Urea nitrogen [Mass/Vol] 41 mg/dL High 9-23 [facility] Comment on above: Performed By: #### L AB103, [id number], LAB15, LAB20 ####Graphic Coordinator: NATALIE GARCIA ([id number])[facility] ([facility])[address] BLOOD TYPE AND SCREEN GELon 06-01-2025 ABO GROUPING A Normal [facility] Comment on above: Performed By: #### L AB276 ####Graphic Coordinator: NATALIE GARCIA ([id number])[facility] ([facility])[address] RH TYPE IN BLOOD Positive Normal [facility] Comment on above: Performed By: #### L AB276 ####Graphic Coordinator: NATALIE SIMONErlindaTRICIA ([id number])[facility] ([facility])[address] CBC WITH AUTO DIFFERENTIALon 06-01-2025 Basophils (Bld) [#/Vol] 0.0 10*3/uL Normal 0.0-0.2 [facility] Comment on above: Performed By: #### L [id number] ####Graphic Coordinator: NATALIE SIMONGRISELTRICIA ([id number])[facility] ([facility])[address] [place] [address] Basophils/100 WBC (Bld) 0.7 % Normal 0.0-2.0 [facility] Comment on above: Performed By: #### L [id number] ####Graphic Coordinator: NATALIE GARCIA ([id number])[facility] ([facility])[address] [place] [address] Eosinophils (Bld) [#/Vol] 0.2 10*3/uL Normal 0.0-0.5 [facility] Comment on above: Performed By: #### L [id number] ####Graphic Coordinator: NATALIE GARCIA ([id number])[facility] ([facility])[address] [place] [address] Eosinophils/100 WBC (Bld) 2.9 % Normal 0.0-6.0 [facility] Comment on above: Performed By: #### L [id number] ####Graphic Coordinator: NATALIE GARCIA ([id number])[facility] ([facility])[address] [place] [address] Erythrocyte distribution width (RBC) [Ratio] 20.6 % High 11.5-15.0 [facility] Comment on above: Performed By: #### L [id number] ####Graphic Coordinator: NATALIE GARCIA ([id number])[facility] ([facility])[address] [place] [address] Hematocrit (Bld) [Volume fraction] 23.0 % Low 35.0-47.0 [facility] Comment on above: Performed By: #### L [id number] ####Graphic Coordinator: NATALIE DENISETRICIA ([id number])[facility] ([facility])[address] [place] [address] Hemoglobin (Bld) [Mass/Vol] 7.1 g/dL Low 11.7-16.0 [facility] Comment on above: Performed By: #### L [id number] ####Graphic Coordinator: NATALIE DENISETRICIA ([id number])[facility] ([facility])[address] [place] [address] IMMATURE GRANS % 0.4 % Normal 0.0-2.0 [facility] Comment on above: Performed By: #### L [id number] ####Graphic Coordinator: NATALIE GARCIA ([id number])[facility] ([facility])[address] [place] [address] IMMATURE GRANS ABSOLUTE 0.0 10*3/uL Normal <0.1 [facility] Comment on above: Performed By: #### L [id number] ####Graphic Coordinator: NATALIE GARCIA ([id number])[facility] ([facility])[address] [place] [address] Lymphocytes (Bld) [#/Vol] 0.9 10*3/uL Low 1.0-4.3 [facility] Comment on above: Performed By: #### L [id number] ####Graphic Coordinator: NATALIE DENISETRICIA ([id number])[facility] ([facility])[address] [place] [address] Lymphocytes/100 WBC (Bld) 15.7 % Normal 15.0-45.0 [facility] Comment on above: Performed By: #### L [id number] ####Graphic Coordinator: NATALIE SIMONErlindaTRICIA ([id number])[facility]OSPITALJoséM iguel MONTENEGROLaurel ([facility])[address] MCH (RBC) [Entitic mass] 25.4 pg Low 26.0-34.0 [facility] Comment on above: Performed By: #### L [id number] ####Graphic Coordinator: NATALIE JOSE ([id number])[facility]ITALJos[facility] Miguel [facility] ([facility])[address] MCHC 30.9 % Normal 30.5-36.0 [facility] Comment on above: Performed By: #### L [id number] ####Graphic Coordinator: NATALIE JOSE ([id number])[facility]ITALJosé Miguel MONTENEGROLaurel ([facility])[address] [place] [address] MCV (RBC) [Entitic vol] 82.1 fL Normal 77.0-99.0 S [facility] Comment on above: Performed By: #### L [id number] ####Graphic Coordinator: NATALIE DENISETRICIA ([id number])[facility]ITALJos[facility] ([facility])[address] [place] [address] Monocytes (Bld) [#/Vol] 0.6 10*3/uL Normal 0.0-0.9 [facility] Comment on above: Performed By: #### L [id number] ####Graphic Coordinator: NATALIE GARCIA ([id number])[facility]OSPITALJosé Miguel [facility]BGALLUP INDI[facility]ERN ([facility])[address] [place] [address] Monocytes/100 WBC (Bld) 11.4 % Normal 5.0-13.0 S [facility] Comment on above: Performed By: #### L [id number] ####Graphic Coordinator: NATALIE DENISETRICIA ([id number])[facility]OSPITALJosé Miguel BARBGALLUP INDIAN MEDICAL CENTERLaurel ([facility])[address] NEUTROPHILS ABSOLUTE 3.8 10*3/uL Normal 1.8-7.5 [facility] Comment on above: Performed By: #### L [id number] ####Graphic Coordinator: NATALIE GARCIA ([id number])[facility] [place] ([facility])[address] Neutrophils/100 WBC (Bld) 68.9 % Normal 38.0-82.0 [facility] Comment on above: Performed By: #### L [id number] ####Graphic Coordinator: NATALIE GARCIA ([id number])[facility] [place] ([facility])[address] NRBC 0.0 /100 WBCs Normal 0.0-2.0 [facility] Comment on above: Performed By: #### L [id number] ####Graphic Coordinator: NATALIE GARCIA ([id number])[facility] [place] ([facility])[address] Platelet mean volume (Bld) [Entitic vol] 9.9 fL Normal 9.0-12.7 [facility] Comment on above: Performed By: #### L [id number] ####Graphic Coordinator: NATALIE GARCIA ([id number])[facility] [place] ([facility])[address] [place] [address] [place] Platelets (Bld) [#/Vol] 244 10*3/uL Normal 140-440 [facility] Comment on above: Performed By: #### L [id number] ####Graphic Coordinator: NATALIE GARCIA ([id number])[facility] [place] ([facility])[address] [place] [address] [place] RBC (Bld) [#/Vol] 2.80 10*6/uL Low 3.80-5.20 [facility] Comment on above: Performed By: #### L [id number] ####Graphic Coordinator: NATALIE GARCIA ([id number])[facility] [place] ([facility])[address] [place] [address] [place] WBC (Bld) [#/Vol] 5.5 10*3/uL Normal 3.6-10.7 [facility] Comment on above: Performed By: #### L [id number] ####Graphic Coordinator: NATALIE GARCIA ([id number])[facility] (SB[facility])[address] [place] [address] CBC-Complete Blood Cnt No Di ffon 06-01-2025 Erythrocyte distribution width (RBC) [Ratio] 20.5 % High 11.6-14.6 [facility] Comment on above: Performed By: #### L 100.0500, L100.4500 ####[facility] [address] [place], [address] Hematocrit (Bld) [Volume fraction] 21.6 % Low 37-47 [facility] Comment on above: Performed By: #### L 100.0500, L100.4500 ####[facility] [address] [place], [address] Hemoglobin (Bld) [Mass/Vol] 6.5 g/dL Low 12.0-15.0 [facility] Comment on above: Performed By: #### L 100.0500, L100.4500 ####[facility] [address] [place], [address] MCH (RBC) [Entitic mass] 25.1 pg Low 27.0-32.0 [facility] Comment on above: Performed By: #### L 100.0500, L100.4500 ####[facility] [address] [place], [address] MCHC (RBC) [Mass/Vol] 30.1 g/dL Low 32-36 [facility] Comment on above: Performed By: #### L 100.0500, L100.4500 ####[facility] [address] [place], [address] MCV (RBC) [Entitic vol] 83.4 fL Normal 81-99 [facility] Comment on above: Performed By: #### L 100.0500, L100.4500 ####[facility] [address] [place], [address] Platelet mean volume (Bld) [Entitic vol] 10.1 fL Normal 6.2-12.0 [facility] Comment on above: Performed By: #### L 100.0500, L100.4500 ####[facility] [address] [place], [address] Platelets (Bld) [#/Vol] 215 10*3/uL Normal 150-450 [facility] Comment on above: Performed By: #### L 100.0500, L100.4500 ####[facility] [address] [place], [address] RBC (Bld) [#/Vol] 2.59 10*6/uL Low 4.2-5.4 [facility] Comment on above: Performed By: #### L 100.0500, L100.4500 ####[facility] [address] [place], [address] RDW SD 63.2 fl High 35.1-43.9 [facility] Comment on above: Performed By: #### L 100.0500, L100.4500 ####[facility] [address] [place], [address] WBC (Bld) [#/Vol] 4.9 10*3/uL Normal 4.4-11.0 [facility] Comment on above: Performed By: #### L 100.0500, L100.4500 ####[facility] [address] [place], [address] Consulton 06-01-2025 Consult Normal [facility] Differential Commenton 06-01 SMEAR COMMENT SCANNED Normal [facility] Comment on above: Result Comment: 2+ A NISOCYTOSIS Performed By: #### L 100.0500, L100.4500 ####[facility] [address] [place], [address] ECG 12-LEADon 06-01-2025 ECG 12-LEAD IMPRESSION: Sinus rhythm Atrial premature complexes Left bundle branch block No previous available for comparison Electronically Signed On 06-01-2025 13:44:04 EDT by Omid Orona Normal [facility] ED Provider Noteon ED Provider Note Normal [facility] HEMOGLOBIN AND HEMATOCRIT, B LOODon 06-01-2025 Hematocrit (Bld) [Volume fraction] 25.2 % Low 35.0-47.0 [facility] Comment on above: Order Comment: Recom mend 1 hour post transfusion Performed By: #### L AB753 ####Graphic Coordinator: NATALIE GARCIA ([id number])[facility]ITAL[facility] BAR[facility]ELI[facility] (SBHLAB)[address] [place] [address] Hemoglobin (Bld) [Mass/Vol] 7.8 g/dL Low 11.7-16.0 [facility] Comment on above: Order Comment: Recom mend 1 hour post transfusion Performed By: #### L AB753 ####Graphic Coordinator: NATALIE GARCIA ([id number])[facility]ITAL[facility] BARBELI[facility] (SBHLAB)[address] [place] [address] HEPATIC FUNCTION PANELon Albumin [Mass/Vol] 2.2 g/dL Low 3.4-4.8 [facility] Comment on above: Performed By: #### L AB103, [id number], LAB15, LAB20 ####Graphic Coordinator: NATALIE GARCIA ([id number])[facility]ITAL[facility] BARBELIAS (SBHLAB)[address] ALP [Catalytic activity/Vol] 148 U/L Normal 40-150 [facility] Comment on above: Performed By: #### L AB103, [id number], LAB15, LAB20 ####Graphic Coordinator: NATALIE GARCIA ([id number])[facility]ITAL[facility] BARBELIAS (SBHLAB)[address] [place] [address] [place] ALT [Catalytic activity/Vol] 15 U/L Normal <30 [facility] Comment on above: Performed By: #### L AB103, [id number], LAB15, LAB20 ####Graphic Coordinator: NATALIE SIMONDANIEL ([id number])[facility] ([facility])[address] AST [Catalytic activity/Vol] 21 U/L Normal <34 [facility] Comment on above: Performed By: #### L AB103, [id number], LAB15, LAB20 ####Graphic Coordinator: NATALIE SIMONDANIEL ([id number])[facility] ([facility])[address] Bilirubin [Mass/Vol] 0.5 mg/dL Normal <1.2 [facility] Comment on above: Performed By: #### L AB103, [id number], LAB15, LAB20 ####Graphic Coordinator: NATALIE SIMONDANIEL ([phone])[facility] ([facility])[address] [place] [address] Bilirubin.indirect [Mass/Vol] 0.2 mg/dL Normal <0.5 [facility] Comment on above: Performed By: #### L AB103, [id number], LAB15, LAB20 ####Graphic Coordinator: NATALIE SIMONDANIEL ([id number])[facility] ([facility])[address] [place] [address] Protein [Mass/Vol] 6.5 g/dL Normal 6.4-8.3 [facility] Comment on above: Result Comment: Seru m protein values are higher than plasma values. Samples from recumbent persons are lower by up to 0.5 g/dL as compared to ambulatory persons. After 60 years values are lower by up to 0.2 g/dL. Performed By: #### L AB103, [id number], LAB15, LAB20 ####Graphic Coordinator: NATALIE SIMONDANIEL ([id number])[facility] ([facility])[address] [place] [address] HIGH SENSITIVITY TROPONIN, S ERIAL BASELINEon 06-01-2025 TROPONIN HS SERIAL BASELINE 12 ng/L Normal <=14 [facility] Comment on above: Result Comment: In i ndividuals presenting with symptoms > 2h, a baseline troponin <= 5 ng/L suggests acutecardiac injury is unlikely and further serial testing is generally not indicated. Performed By: #### L AB103, [id number], LAB15, LAB20 ####Graphic Coordinator: NATALIE GARCIA ([id number])[facility])[address] HIGH SENSITIVITY TROPONIN, S ERIAL, SECOND TESTon 06-01-2025 2H TROPONIN HS (SERIAL 2ND TROPONIN) 13 ng/L Normal <=14 [facility] Comment on above: Result Comment: Risi ng or falling troponin delta below 2 ng/L as compared to baseline value suggests thatacute cardiac injury is unlikely. Performed By: #### L [id number] ####Graphic Coordinator: NATALIE GARCIA ([id number])[facility] ([facility])[address] [place] [address] MAGNESIUMon 06-01-2025 Magnesium [Mass/Vol] 2.1 mg/dL Normal 1.6-2.6 [facility] Comment on above: Result Comment: DORIAN Knight COMMENTS:Higher values can be expected in females during menses. Performed By: #### L AB103, [id number], LAB15, LAB20 ####Graphic Coordinator: NATALIE GARCIA ([id number])[facility] ([facility])[address] [place] [address] Nursing Noteon 06-01-2025 Nursing Note Normal [facility] Ova and Parasites 8623on OP Normal [facility] Comment on above: Performed By: #### M 600.5000 ####[facility] [address] [place], [address] .GFRon 04-18-2025 Estimated Glomerular Filtration Rate 12 ml/min/1.73sqm Normal [facility] Comment on above: Result Comment: Stages of Chronic Kidney Disease (CKD) Stage Description eGFR(ml/min/1.73 sq.m.) CKD 1 Normal kidney function or >=90 normal kindney function with possible kidney damage (ex. Proteinuria) CKD 2 Kidney damage with mild loss 60-89 of kidney function CKD 3a Mild to moderate loss of kidney 45-59 function CKD 3b Moderate to severe loss of 30-44 of kindey function CKD 4 Severe loss of kidney function 15-29 CKD 5 Kidney failure <15 Note: (go live 2024) the eGFR calculation was updated to the 2020 CKD-EPI creatinine equation without a race factor to calculate the eGFR results. Performed By: #### C BC, GFR, MORPH, RFP, DIFF #### [address] [address] [facility] BUN/Creatinine Ratio 13.5 ratio Normal 10.0-22.0 [facility] Comment on above: Performed By: #### C BC, GFR, MORPH, RFP, DIFF #### [address] [address] Calcium [Mass/Vol] 10.0 mg/dL Normal 8.7-10.4 [facility] Comment on above: Performed By: #### C BC, GFR, MORPH, RFP, DIFF #### [address] [address] Chloride [Moles/Vol] 96 mmol/L Low 98-110 [facility] Comment on above: Performed By: #### C BC, GFR, MORPH, RFP, DIFF #### [address] [address] CO2 [Moles/Vol] 30 mmol/L Normal 22-32 [facility] Comment on above: Performed By: #### C BC, GFR, MORPH, RFP, DIFF #### [address] [address] Creatinine [Mass/Vol] 3.64 mg/dL High 0.50-1.20 [facility] Comment on above: Result Comment: Test ing performed on [employer] analyzer using enzymatic creatinine methodology. Performed By: #### C BC, GFR, MORPH, RFP, DIFF #### [address] [address] Electrolyte Balance 11.0 mEq/L Normal 4.0-15.0 [facility] Comment on above: Performed By: #### C BC, GFR, MORPH, RFP, DIFF #### [address] [address] Glucose [Mass/Vol] 147 mg/dL High 82-115 [facility] Comment on above: Performed By: #### C BC, GFR, MORPH, RFP, DIFF #### [address] [address] Potassium [Moles/Vol] 4.4 mmol/L Normal 3.5-5.0 [facility] Comment on above: Performed By: #### C BC, GFR, MORPH, RFP, DIFF #### [address] [address] Sodium [Moles/Vol] 137 mmol/L Normal 136-145 [facility] Comment on above: Performed By: #### C BC, GFR, MORPH, RFP, DIFF #### [address] [address] Urea nitrogen [Mass/Vol] 49.0 mg/dL High 8.0-22.0 [facility] Comment on above: Performed By: #### C BC, GFR, MORPH, RFP, DIFF #### [address] [address] .Auto Diffon 04-16-2025 Basophil, Absolute 0.2 10 3/mcL Normal 0.0-0.3 [facility] Comment on above: Performed By: #### M G, RFP, BMP, GFR #### [address] [address] Basophils/100 WBC (Bld) 2.3 % Normal 0.0-2.5 [facility] Comment on above: Performed By: #### M G, RFP, BMP, GFR #### [address] [address] Eosinophil, Absolute 0.2 10 3/mcL Normal 0.0-0.7 [facility] Comment on above: Performed By: #### M G, RFP, BMP, GFR #### [facility] [address] [place] [address] Eosinophils/100 WBC (Bld) 2.1 % Normal 0.0-6.0 [facility] Comment on above: Performed By: #### M G, RFP, BMP, GFR #### [facility] [address] [place] [address] Lymphocyte, Absolute 1.3 10 3/mcL Normal 0.9-4.3 [facility] Comment on above: Performed By: #### M G, RFP, BMP, GFR #### [facility] [address] [place] [address] Lymphocytes/100 WBC (Bld) 17.1 % Low 20.0-40.0 [facility] Comment on above: Performed By: #### M G, RFP, BMP, GFR #### [facility] [address] [place] [address] Monocyte, Absolute 0.8 10 3/mcL Normal 0.1-1.4 [facility] Comment on above: Performed By: #### M G, RFP, BMP, GFR #### [address] [address] Monocytes/100 WBC (Bld) 10.7 % Normal 2.0-13.0 [facility] Comment on above: Performed By: #### Iain G, RFP, BMP, GFR #### [address] [address] Neutrophils/100 WBC (Bld) 67.8 % Normal 50.0-75.0 [facility] Comment on above: Performed By: #### M G, RFP, BMP, GFR #### [facility] [address] [place] [address] .GFRon 04-16-2025 Estimated Glomerular Filtration Rate 9 ml/min/1.73sqm Normal [facility] Comment on above: Result Comment: Stages of Chronic Kidney Disease (CKD) Stage Description eGFR(ml/min/1.73 sq.m.) CKD 1 Normal kidney function or >=90 normal kindney function with possible kidney damage (ex. Proteinuria) CKD 2 Kidney damage with mild loss 60-89 of kidney function CKD 3a Mild to moderate loss of kidney 45-59 function CKD 3b Moderate to severe loss of 30-44 of kindey function CKD 4 Severe loss of kidney function 15-29 CKD 5 Kidney failure <15 Note: (go live 2024) the eGFR calculation was updated to the 2020 CKD-EPI creatinine equation without a race factor to calculate the eGFR results. Performed By: #### M G, RFP, BMP, GFR #### [place] [address] .Morphon 04-16-2025 Anisocytosis Ql (Bld) 2+ Normal [facility] Comment on above: Performed By: #### M G, RFP, BMP, GFR #### [place] [address] Microcytosis 2+ Normal [facility] Comment on above: Performed By: #### M G, RFP, BMP, GFR #### [place] [address] Ovalocytes 1+ [facility] Comment on above: Performed By: #### M G, RFP, BMP, GFR #### [place] [address] Platelet Estimate Normal [facility] Comment on above: Performed By: #### M G, RFP, BMP, GFR #### [place] [address] Poik 1+ [facility] Comment on above: Performed By: #### M G, RFP, BMP, GFR #### [place] [address] Polychrom 1+ [facility] Comment on above: Performed By: #### M G, RFP, BMP, GFR #### [place] [address] .NEUABSon 04-16-2025 Neutrophil, Absolute 5.2 10 3/mcL Normal 2.3-8.1 [facility] Comment on above: Performed By: #### M G, RFP, BMP, GFR #### [place] [address] BMPon 04-16-2025 BUN/Creatinine Ratio 16.9 ratio Normal 10.0-22.0 [facility] Comment on above: Performed By: #### M G, RFP, BMP, GFR #### [address] [address] Calcium [Mass/Vol] 9.9 mg/dL Normal 8.7-10.4 [facility] Comment on above: Performed By: #### M G, RFP, BMP, GFR #### [address] [address] Chloride [Moles/Vol] 97 mmol/L Low 98-110 [facility] Comment on above: Performed By: #### M G, RFP, BMP, GFR #### [address] [address] CO2 [Moles/Vol] 29 mmol/L Normal 22-32 [facility] Comment on above: Performed By: #### M G, RFP, BMP, GFR #### [address] [address] Creatinine [Mass/Vol] 4.92 mg/dL High 0.50-1.20 [facility] Comment on above: Result Comment: Test ing performed on [employer] analyzer using enzymatic creatinine methodology. Performed By: #### M G, RFP, BMP, GFR #### [address] [address] Electrolyte Balance 10.0 mEq/L Normal 4.0-15.0 [facility] Comment on above: Performed By: #### M G, RFP, BMP, GFR #### [address] [address] Glucose [Mass/Vol] 154 mg/dL High 82-115 [facility] Comment on above: Performed By: #### M G, RFP, BMP, GFR #### [address] [address] Potassium [Moles/Vol] 4.4 mmol/L Normal 3.5-5.0 [facility] Comment on above: Performed By: #### M G, RFP, BMP, GFR #### [address] [address] Sodium [Moles/Vol] 136 mmol/L Normal 136-145 [facility] Comment on above: Performed By: #### M G, RFP, BMP, GFR #### [place] [id number] Urea nitrogen [Mass/Vol] 83.0 mg/dL High 8.0-22.0 [facility] Comment on above: Performed By: #### M G, RFP, BMP, GFR #### [address] [address] CBCon 04-16-2025 Platelet 286 10 3/mcL Normal 150-450 [facility] Comment on above: Performed By: #### M G, RFP, BMP, GFR #### [place] [address] Platelet mean volume (Bld) [Entitic vol] 7.3 fL Normal 6.6-10.5 [facility] Comment on above: Performed By: #### M G, RFP, BMP, GFR #### [place] [address] Erythrocyte distribution width (RBC) [Ratio] 23.8 % High 11.5-15.5 [facility] Comment on above: Performed By: #### M G, RFP, BMP, GFR #### [place] [address] Hematocrit (Bld) [Volume fraction] 28.0 % Low 34.0-46.0 [facility] Comment on above: Performed By: #### M G, RFP, BMP, GFR #### [place] [id number] Hgb 8.9 G/dL Low 12.0-16.0 [facility] Comment on above: Performed By: #### M G, RFP, BMP, GFR #### [place] [id number] MCH (RBC) [Entitic mass] 23.3 pg Low 27.0-33.0 [facility] Comment on above: Performed By: #### M G, RFP, BMP, GFR #### [place] [id number] MCHC 31.9 G/dL Low 32.0-36.0 [facility] Comment on above: Performed By: #### M G, RFP, BMP, GFR #### [facility] [address] [place] [address] MCV (RBC) [Entitic vol] 73.2 fL Low 80.0-99.0 [facility] Comment on above: Performed By: #### M G, RFP, BMP, GFR #### [facility] [address] [place] [address] RBC 3.83 10 6/mcL Low 4.10-5.30 [facility] Comment on above: Performed By: #### M G, RFP, BMP, GFR #### [address] [address] WBC 7.6 10 3/mcL Normal 4.5-10.8 [facility] Comment on above: Performed By: #### M G, RFP, BMP, GFR #### [address] [address] XR CHEST 1 VIEWon 04-16-2025 XR CHEST 1 VIEW ORIGINAL EXAMINATION: ONE XRAY VIEW OF THE CHEST 04/16/2025 6:01 am COMPARISON: Chest x-ray 04/05/2025, 03/26/2025. HISTORY: ORDERING SYSTEM PROVIDED HISTORY: Reason for Exam: recurrent pleural effusion FINDINGS: Tracheostomy is noted with tip in unchanged position. Right internal jugular central venous catheter is noted with tip terminating at the cavoatrial junction. The heart is enlarged but stable. There is low lung volumes with hypoventilatory changes. Mild increased bilateral interstitial prominence, similar to prior study. There is an increasing small right pleural effusion. Small to moderate left pleural effusion is stable. No pneumothorax. Osseous structures appear intact. Moderate degenerative changes of the left glenohumeral joint and AC joint. IMPRESSION: Increasing small right pleural effusion with adjacent hazy airspace disease. No significant change in small to moderate left pleural effusion. Interpreted by: Tomy Arreola Preliminary Report By: Tomy Arreola Electronically signed By Tomy Arreola Dictated Date: 04/16/2025 8:24:06 AM Prelim Date: 04/16/2025 8:28:15 AM Sign Date: 04/16/2025 8:28:15 AM Ordering Provider: ELKE NASHAWATI [facility] .GFRon 04-13-2025 Estimated Glomerular Filtration Rate 12 ml/min/1.73sqm [facility] Comment on above: Result Comment: Stages of Chronic Kidney Disease (CKD) Stage Description eGFR(ml/min/1.73 sq.m.) CKD 1 Normal kidney function or >=90 normal kindney function with possible kidney damage (ex. Proteinuria) CKD 2 Kidney damage with mild loss 60-89 of kidney function CKD 3a Mild to moderate loss of kidney 45-59 function CKD 3b Moderate to severe loss of 30-44 of kindey function CKD 4 Severe loss of kidney function 15-29 CKD 5 Kidney failure <15 Note: (go live 2024) the eGFR calculation was updated to the 2020 CKD-EPI creatinine equation without a race factor to calculate the eGFR results. Performed By: #### C BC, GFR, MORPH, RFP, DIFF #### [place] [address] .Manual Diffon 04-13-2025 Bands 1.0 % Normal 0.0-5.0 [facility] Comment on above: Performed By: #### C BC, GFR, MORPH, RFP, DIFF #### [place] [address] Basophil %, Manual 0.0 % Normal 0.0-2.5 [facility] Comment on above: Performed By: #### C BC, GFR, MORPH, RFP, DIFF #### [place] [address] Basophil, Abs Manual 0.0 10 3/mcL Normal 0.0-0.3 [facility] Comment on above: Performed By: #### C BC, GFR, MORPH, RFP, DIFF #### [place] [address] Eosinophil %, Manual 1.0 % Normal 0.0-6.0 [facility] Comment on above: Performed By: #### C BC, GFR, MORPH, RFP, DIFF #### [place] [address] Eosinophil, Abs Manual 0.1 10 3/mcL Normal 0.0-0.7 [facility] Comment on above: Performed By: #### C BC, GFR, MORPH, RFP, DIFF #### [address] [address] Lymphocyte %, Manual 8.0 % Low 20.0-40.0 [facility] Comment on above: Performed By: #### C BC, GFR, MORPH, RFP, DIFF #### [address] [address] Lymphocyte, Abs Manual 0.6 10 3/mcL Low 0.9-4.3 [facility] Comment on above: Performed By: #### C BC, GFR, MORPH, RFP, DIFF #### [address] [address] Monocyte %, Manual 9.0 % Normal 2.0-13.0 [facility] Comment on above: Performed By: #### C BC, GFR, MORPH, RFP, DIFF #### [address] [address] Monocyte, Abs Manual 0.7 10 3/mcL Normal 0.1-1.4 [facility] Comment on above: Performed By: #### C BC, GFR, MORPH, RFP, DIFF #### [address] [address] Neutrophil %, Manual 81.0 % High 50.0-75.0 [facility] Comment on above: Performed By: #### C BC, GFR, MORPH, RFP, DIFF #### [address] [address] Neutrophil, Abs Manual 6.3 10 3/mcL Normal 2.3-8.1 [facility] Comment on above: Performed By: #### C BC, GFR, MORPH, RFP, DIFF #### [address] [address] Nucleated RBC 0.0 /100 WBC Normal [facility] Comment on above: Performed By: #### C BC, GFR, MORPH, RFP, DIFF #### [address] [address] .Morphon 04-13-2025 Anisocytosis Ql (Bld) 1+ Normal [facility] Comment on above: Performed By: #### C BC, GFR, MORPH, RFP, DIFF #### [place] [id number] Hypochrom 1+ [facility] Comment on above: Performed By: #### C BC, GFR, MORPH, RFP, DIFF #### [place] [address] Large Platelets Few [facility] Comment on above: Performed By: #### C BC, GFR, MORPH, RFP, DIFF #### [place] [address] Microcytosis 1+ [facility] Comment on above: Performed By: #### C BC, GFR, MORPH, RFP, DIFF #### [place] [address] Ovalocytes 1+ [facility] Comment on above: Performed By: #### C BC, GFR, MORPH, RFP, DIFF #### [place] [address] Platelet Estimate Normal [facility] Comment on above: Performed By: #### C BC, GFR, MORPH, RFP, DIFF #### [place] [address] Poik 1+ [facility] Comment on above: Performed By: #### C BC, GFR, MORPH, RFP, DIFF #### [place] [address] Polychrom 1+ [facility] Comment on above: Performed By: #### C BC, GFR, MORPH, RFP, DIFF #### [place] [address] Target Cell 1+ [facility] Comment on above: Performed By: #### C BC, GFR, MORPH, RFP, DIFF #### [place] [address] BMPon 04-13-2025 BUN/Creatinine Ratio 15.1 ratio Normal 10.0-22.0 [facility] Comment on above: Performed By: #### C BC, GFR, MORPH, RFP, DIFF #### [place] [address] Calcium [Mass/Vol] 9.6 mg/dL Normal 8.7-10.4 [facility] Comment on above: Performed By: #### C BC, GFR, MORPH, RFP, DIFF #### [address] [address] Chloride [Moles/Vol] 98 mmol/L Normal 98-110 [facility] Comment on above: Performed By: #### C BC, GFR, MORPH, RFP, DIFF #### [address] [address] CO2 [Moles/Vol] 30 mmol/L Normal 22-32 [facility] Comment on above: Performed By: #### C BC, GFR, MORPH, RFP, DIFF #### [address] [address] Creatinine [Mass/Vol] 3.78 mg/dL High 0.50-1.20 [facility] Comment on above: Result Comment: Test ing performed on [employer] analyzer using enzymatic creatinine methodology. Performed By: #### C BC, GFR, MORPH, RFP, DIFF #### [address] [address] Electrolyte Balance 11.0 mEq/L Normal 4.0-15.0 [facility] Comment on above: Performed By: #### C BC, GFR, MORPH, RFP, DIFF #### [address] [address] Glucose [Mass/Vol] 134 mg/dL High 82-115 [facility] Comment on above: Performed By: #### C BC, GFR, MORPH, RFP, DIFF #### [address] [address] Potassium [Moles/Vol] 4.0 mmol/L Normal 3.5-5.0 [facility] Comment on above: Performed By: #### C BC, GFR, MORPH, RFP, DIFF #### [address] [address] Sodium [Moles/Vol] 139 mmol/L Normal 136-145 [facility] Comment on above: Performed By: #### C BC, GFR, MORPH, RFP, DIFF #### [place] [address] Urea nitrogen [Mass/Vol] 57.0 mg/dL High 8.0-22.0 [facility] Comment on above: Performed By: #### C BC, GFR, MORPH, RFP, DIFF #### [address] [address] CBCon 04-13-2025 Erythrocyte distribution width (RBC) [Ratio] 24.5 % High 11.5-15.5 [facility] Comment on above: Performed By: #### C BC, GFR, MORPH, RFP, DIFF #### [place] [address] Hematocrit (Bld) [Volume fraction] 28.8 % Low 34.0-46.0 [facility] Comment on above: Performed By: #### C BC, GFR, MORPH, RFP, DIFF #### [place] [address] Hgb 9.3 G/dL Low 12.0-16.0 [facility] Comment on above: Performed By: #### C BC, GFR, MORPH, RFP, DIFF #### [place] [address] MCH (RBC) [Entitic mass] 23.9 pg Low 27.0-33.0 [facility] Comment on above: Performed By: #### C BC, GFR, MORPH, RFP, DIFF #### [place] [address] MCHC 32.1 G/dL Normal 32.0-36.0 [facility] Comment on above: Performed By: #### C BC, GFR, MORPH, RFP, DIFF #### [place] [address] MCV (RBC) [Entitic vol] 74.3 fL Low 80.0-99.0 [facility] Comment on above: Performed By: #### C BC, GFR, MORPH, RFP, DIFF #### [place] [address] Platelet 272 10 3/mcL Normal 150-450 [facility] Comment on above: Performed By: #### C BC, GFR, MORPH, RFP, DIFF #### [place] [address] Platelet mean volume (Bld) [Entitic vol] 7.6 fL Normal 6.6-10.5 [facility] Comment on above: Performed By: #### C BC, GFR, MORPH, RFP, DIFF #### [place] [address] RBC 3.87 10 6/mcL Low 4.10-5.30 [facility] Comment on above: Performed By: #### C BC, GFR, MORPH, RFP, DIFF #### [place] [address] WBC 7.8 10 3/mcL Normal 4.5-10.8 [facility] Comment on above: Performed By: #### C BC, GFR, MORPH, RFP, DIFF #### [place] [address] HBSABon 04-13-2025 Hep B Surf Ab 3.1 mIU/mL Low >=10.0 [facility] Comment on above: Result Comment: 0 to < 10.0 mIU/mL Nonreactive Patient is considered not to have protective immunity to HBV infection >/= 10.0 mIU/mL Reactive Patient is considered to have protective immunity to HBV infection. This assay is traceable to the World Health Organization (WHO) Hepatitis B Immunoglobulin 1st International Reference Preparation (1976). The accepted criteria for immunity to HBV is anti-HBs activity >/= 10.0 mIU/mL, as defined by the WHO International Reference Preparation. Performed By: #### C BC, GFR, MORPH, RFP, DIFF #### [place] [address] HBSAGon 04-13-2025 Hep B Surf Ag Non-Reactive Normal Non-Reactive [facility] Comment on above: Performed By: #### C BC, GFR, MORPH, RFP, DIFF #### [place] [address] HBcTon 04-13-2025 Hepatitis B Core Total Non-Reactive Normal Non-Reactiv e [facility] Comment on above: Performed By: #### M G, RFP, BMP, GFR #### [place] [address] Hepatitis B Core Total Interp See Interp Normal [facility] Comment on above: Result Comment: Clinical Interpretation: Samples with a value of <0.50 are considered nonreactive for total antibodies to Hepatitis B Core Antigen. Performed By: #### M G, RFP, BMP, GFR #### [place] [address] PHOSon 04-13-2025 Phosphate [Mass/Vol] 3.1 mg/dL Normal 2.4-5.1 [facility] Comment on above: Performed By: #### C BC, GFR, MORPH, RFP, DIFF #### [place] [address] .GFRon 04-10-2025 Estimated Glomerular Filtration Rate 19 ml/min/1.73sqm Normal [facility] Comment on above: Result Comment: Stages of Chronic Kidney Disease (CKD) Stage Description eGFR(ml/min/1.73 sq.m.) CKD 1 Normal kidney function or >=90 normal kindney function with possible kidney damage (ex. Proteinuria) CKD 2 Kidney damage with mild loss 60-89 of kidney function CKD 3a Mild to moderate loss of kidney 45-59 function CKD 3b Moderate to severe loss of 30-44 of kindey function CKD 4 Severe loss of kidney function 15-29 CKD 5 Kidney failure <15 Note: (go live 2024) the eGFR calculation was updated to the 2020 CKD-EPI creatinine equation without a race factor to calculate the eGFR results. Performed By: #### C BC, GFR, MORPH, RFP, DIFF #### [place] [address] BMPon 04-10-2025 BUN/Creatinine Ratio 11.9 ratio Normal 10.0-22.0 [facility] Comment on above: Performed By: #### C BC, GFR, MORPH, RFP, DIFF #### [place] [address] Calcium [Mass/Vol] 9.0 mg/dL Normal 8.7-10.4 [facility] Comment on above: Performed By: #### C BC, GFR, MORPH, RFP, DIFF #### [address] [address] Chloride [Moles/Vol] 98 mmol/L Normal 98-110 [facility] Comment on above: Performed By: #### C BC, GFR, MORPH, RFP, DIFF #### [address] [address] CO2 [Moles/Vol] 31 mmol/L Normal 22-32 [facility] Comment on above: Performed By: #### C BC, GFR, MORPH, RFP, DIFF #### [address] [address] Creatinine [Mass/Vol] 2.52 mg/dL High 0.50-1.20 [facility] Comment on above: Result Comment: Test ing performed on [employer] analyzer using enzymatic creatinine methodology. Performed By: #### C BC, GFR, MORPH, RFP, DIFF #### [address] [address] Electrolyte Balance 9.0 mEq/L Normal 4.0-15.0 [facility] Comment on above: Performed By: #### C BC, GFR, MORPH, RFP, DIFF #### [address] [address] Glucose [Mass/Vol] 153 mg/dL High 82-115 [facility] Comment on above: Performed By: #### C BC, GFR, MORPH, RFP, DIFF #### [address] [address] Potassium [Moles/Vol] 4.2 mmol/L Normal 3.5-5.0 [facility] Comment on above: Performed By: #### C BC, GFR, MORPH, RFP, DIFF #### [address] [address] Sodium [Moles/Vol] 138 mmol/L Normal 136-145 [facility] Comment on above: Performed By: #### C BC, GFR, MORPH, RFP, DIFF #### [address] [address] Urea nitrogen [Mass/Vol] 30.0 mg/dL High 8.0-22.0 [facility] Comment on above: Performed By: #### C BC, GFR, MORPH, RFP, DIFF #### [address] [address] TROPHSon 04-10-2025 High Sensitivity Troponin I 17 ng/L Normal 0-34 [facility] Comment on above: Result Comment: High Sensitive Troponin I Reference Ranges: Female: 0-34 ng/L Male: 0-54 ng/L Testing performed on [employer] analyzer using direct chemiluminescent technology. Performed By: #### C BC, GFR, MORPH, RFP, DIFF #### [place] [address] .Auto Diffon 04-09-2025 Basophil, Absolute 0.1 10 3/mcL Normal 0.0-0.3 [facility] Comment on above: Performed By: #### M G, RFP, BMP, GFR #### [place] [address] Basophils/100 WBC (Bld) 0.9 % Normal 0.0-2.5 [facility] Comment on above: Performed By: #### M G, RFP, BMP, GFR #### [address] [address] Eosinophil, Absolute 0.2 10 3/mcL Normal 0.0-0.7 [facility] Comment on above: Performed By: #### M G, RFP, BMP, GFR #### [address] [address] Eosinophils/100 WBC (Bld) 3.2 % Normal 0.0-6.0 [facility] Comment on above: Performed By: #### M G, RFP, BMP, GFR #### [address] [address] Lymphocyte, Absolute 0.6 10 3/mcL Low 0.9-4.3 [facility] Comment on above: Performed By: #### M G, RFP, BMP, GFR #### [address] [address] Lymphocytes/100 WBC (Bld) 11.4 % Low 20.0-40.0 [facility] Comment on above: Performed By: #### M G, RFP, BMP, GFR #### [facility] [address] [place] [address] Monocyte, Absolute 0.9 10 3/mcL Normal 0.1-1.4 [facility] Comment on above: Performed By: #### M G, RFP, BMP, GFR #### [facility] [address] [place] [address] Monocytes/100 WBC (Bld) 16.2 % High 2.0-13.0 [facility] Comment on above: Performed By: #### M G, RFP, BMP, GFR #### [facility] [address] [place] [address] Neutrophils/100 WBC (Bld) 68.3 % Normal 50.0-75.0 [facility] Comment on above: Performed By: #### M G, RFP, BMP, GFR #### [address] [address] .GFRon 04-09-2025 Estimated Glomerular Filtration Rate 11 ml/min/1.73sqm Normal [facility] Comment on above: Result Comment: Stages of Chronic Kidney Disease (CKD) Stage Description eGFR(ml/min/1.73 sq.m.) CKD 1 Normal kidney function or >=90 normal kindney function with possible kidney damage (ex. Proteinuria) CKD 2 Kidney damage with mild loss 60-89 of kidney function CKD 3a Mild to moderate loss of kidney 45-59 function CKD 3b Moderate to severe loss of 30-44 of kindey function CKD 4 Severe loss of kidney function 15-29 CKD 5 Kidney failure <15 Note: (go live 2024) the eGFR calculation was updated to the 2020 CKD-EPI creatinine equation without a race factor to calculate the eGFR results. Performed By: #### M G, RFP, BMP, GFR #### [facility] [address] [place] [address] .Morphon 04-09-2025 Anisocytosis Ql (Bld) 2+ Normal [facility] Comment on above: Performed By: #### M G, RFP, BMP, GFR #### [facility] [address] [place] [address] Microcytosis 1+ Normal [facility] Comment on above: Performed By: #### M G, RFP, BMP, GFR #### [place] [id number] Ovalocytes 1+ Normal [facility] Comment on above: Performed By: #### M G, RFP, BMP, GFR #### [place] [address] Platelet Estimate Normal Normal [facility] Comment on above: Performed By: #### M G, RFP, BMP, GFR #### [place] [address] Poik 1+ Normal [facility] Comment on above: Performed By: #### M G, RFP, BMP, GFR #### [place] [address] .NEUABSon 04-09-2025 Neutrophil, Absolute 3.9 10 3/mcL Normal 2.3-8.1 [facility] Comment on above: Performed By: #### M G, RFP, BMP, GFR #### [place] [address] CBCon 04-09-2025 Erythrocyte distribution width (RBC) [Ratio] 25.5 % High 11.5-15.5 [facility] Comment on above: Performed By: #### M G, RFP, BMP, GFR #### [place] [address] Hematocrit (Bld) [Volume fraction] 27.0 % Low 34.0-46.0 [facility] Comment on above: Performed By: #### M G, RFP, BMP, GFR #### [place] [address] Hgb 8.5 G/dL Low 12.0-16.0 [facility] Comment on above: Performed By: #### M G, RFP, BMP, GFR #### [place] [address] MCH (RBC) [Entitic mass] 23.7 pg Low 27.0-33.0 [facility] Comment on above: Performed By: #### M G, RFP, BMP, GFR #### [address] [address] MCHC 31.6 G/dL Low 32.0-36.0 [facility] Comment on above: Performed By: #### M G, RFP, BMP, GFR #### [address] [address] MCV (RBC) [Entitic vol] 75.1 fL Low 80.0-99.0 [facility] Comment on above: Performed By: #### M G, RFP, BMP, GFR #### [place] [address] Platelet 261 10 3/mcL Normal 150-450 [facility] Comment on above: Performed By: #### M G, RFP, BMP, GFR #### [place] [address] Platelet mean volume (Bld) [Entitic vol] 7.3 fL Normal 6.6-10.5 [facility] Comment on above: Performed By: #### M G, RFP, BMP, GFR #### [place] [address] RBC 3.60 10 6/mcL Low 4.10-5.30 [facility] Comment on above: Performed By: #### M G, RFP, BMP, GFR #### [place] [id number] WBC 5.7 10 3/mcL Normal 4.5-10.8 [facility] Comment on above: Performed By: #### M G, RFP, BMP, GFR #### [address] [address] RFPon 04-09-2025 Albumin Level 2.6 G/dL Low 3.2-4.8 [facility] Comment on above: Performed By: #### M G, RFP, BMP, GFR #### [place] [address] BUN/Creatinine Ratio 15.0 ratio Normal 10.0-22.0 [facility] Comment on above: Performed By: #### M G, RFP, BMP, GFR #### [place] [id number] Calcium [Mass/Vol] 9.3 mg/dL Normal 8.7-10.4 [facility] Comment on above: Performed By: #### Iain Mckeon, RFP, BMP, GFR #### [address] [address] Chloride [Moles/Vol] 95 mmol/L Low 98-110 [facility] Comment on above: Performed By: #### M G, RFP, BMP, GFR #### [address] [address] CO2 [Moles/Vol] 28 mmol/L Normal 22-32 [facility] Comment on above: Performed By: #### Iain Mckeon, RFP, BMP, GFR #### [address] [address] Creatinine [Mass/Vol] 4.07 mg/dL High 0.50-1.20 [facility] Comment on above: Result Comment: Test ing performed on [employer] analyzer using enzymatic creatinine methodology. Performed By: #### Iain Mckeon, RFP, BMP, GFR #### [address] [address] Electrolyte Balance 15.0 mEq/L Normal 4.0-15.0 [facility] Comment on above: Performed By: #### Iain Mckeon, RFP, BMP, GFR #### [address] [address] Glucose [Mass/Vol] 155 mg/dL High 82-115 [facility] Comment on above: Performed By: #### M Linda, RFP, BMP, GFR #### [address] [address] Phosphate [Mass/Vol] 4.9 mg/dL Normal 2.4-5.1 [facility] Comment on above: Performed By: #### M G, RFP, BMP, GFR #### [address] [address] Potassium [Moles/Vol] 4.5 mmol/L Normal 3.5-5.0 [facility] Comment on above: Performed By: #### M G, RFP, BMP, GFR #### [address] [address] Sodium [Moles/Vol] 138 mmol/L Normal 136-145 [facility] Comment on above: Performed By: #### M G, RFP, BMP, GFR #### [address] [address] Urea nitrogen [Mass/Vol] 61.0 mg/dL High 8.0-22.0 [facility] Comment on above: Performed By: #### M G, RFP, BMP, GFR #### [address] [address] .Auto Diffon 04-06-2025 Basophil, Absolute 0.0 10 3/mcL Normal 0.0-0.3 [facility] Comment on above: Performed By: #### C BC, GFR, MORPH, RFP, DIFF #### [address] [address] Basophils/100 WBC (Bld) 0.8 % Normal 0.0-2.5 [facility] Comment on above: Performed By: #### C BC, GFR, MORPH, RFP, DIFF #### [address] [address] Eosinophil, Absolute 0.2 10 3/mcL Normal 0.0-0.7 [facility] Comment on above: Performed By: #### C BC, GFR, MORPH, RFP, DIFF #### [address] [address] Eosinophils/100 WBC (Bld) 3.1 % Normal 0.0-6.0 [facility] Comment on above: Performed By: #### C BC, GFR, MORPH, RFP, DIFF #### [address] [address] Lymphocyte, Absolute 0.7 10 3/mcL Low 0.9-4.3 [facility] Comment on above: Performed By: #### C BC, GFR, MORPH, RFP, DIFF #### [address] [address] Lymphocytes/100 WBC (Bld) 13.8 % Low 20.0-40.0 [facility] Comment on above: Performed By: #### C BC, GFR, MORPH, RFP, DIFF #### [facility] [address] [place] [address] Monocyte, Absolute 0.7 10 3/mcL Normal 0.1-1.4 [facility] Comment on above: Performed By: #### C BC, GFR, MORPH, RFP, DIFF #### [facility] [address] [place] [address] Monocytes/100 WBC (Bld) 14.1 % High 2.0-13.0 [facility] Comment on above: Performed By: #### C BC, GFR, MORPH, RFP, DIFF #### [address] [address] Neutrophils/100 WBC (Bld) 68.2 % Normal 50.0-75.0 [facility] Comment on above: Performed By: #### C BC, GFR, MORPH, RFP, DIFF #### [address] [address] .GFRon 04-06-2025 Estimated Glomerular Filtration Rate 15 ml/min/1.73sqm Normal [facility] Comment on above: Result Comment: Stages of Chronic Kidney Disease (CKD) Stage Description eGFR(ml/min/1.73 sq.m.) CKD 1 Normal kidney function or >=90 normal kindney function with possible kidney damage (ex. Proteinuria) CKD 2 Kidney damage with mild loss 60-89 of kidney function CKD 3a Mild to moderate loss of kidney 45-59 function CKD 3b Moderate to severe loss of 30-44 of kindey function CKD 4 Severe loss of kidney function 15-29 CKD 5 Kidney failure <15 Note: (go live 2024) the eGFR calculation was updated to the 2020 CKD-EPI creatinine equation without a race factor to calculate the eGFR results. Performed By: #### C BC, GFR, MORPH, RFP, DIFF #### [address] [address] .Morphon 04-06-2025 Anisocytosis Ql (Bld) 2+ Normal [facility] Comment on above: Performed By: #### C BC, GFR, MORPH, RFP, DIFF #### [address] [address] Microcytosis 2+ Normal [facility] Comment on above: Performed By: #### C BC, GFR, MORPH, RFP, DIFF #### [place] [address] Ovalocytes 1+ Normal [facility] Comment on above: Performed By: #### C BC, GFR, MORPH, RFP, DIFF #### [place] [address] Platelet Estimate Normal Normal [facility] Comment on above: Performed By: #### C BC, GFR, MORPH, RFP, DIFF #### [place] [address] Poik 1+ Normal [facility] Comment on above: Performed By: #### C BC, GFR, MORPH, RFP, DIFF #### [place] [address] Polychrom 1+ Normal [facility] Comment on above: Performed By: #### C BC, GFR, MORPH, RFP, DIFF #### [place] [address] .NEUABSon 04-06-2025 Neutrophil, Absolute 3.6 10 3/mcL Normal 2.3-8.1 [facility] Comment on above: Performed By: #### C BC, GFR, MORPH, RFP, DIFF #### [place] [address] CBCon 04-06-2025 Erythrocyte distribution width (RBC) [Ratio] 26.5 % High 11.5-15.5 [facility] Comment on above: Performed By: #### C BC, GFR, MORPH, RFP, DIFF #### [place] [address] Hematocrit (Bld) [Volume fraction] 25.5 % Low 34.0-46.0 [facility] Comment on above: Performed By: #### C BC, GFR, MORPH, RFP, DIFF #### [place] [address] Hgb 8.0 G/dL Low 12.0-16.0 [facility] Comment on above: Performed By: #### C BC, GFR, MORPH, RFP, DIFF #### [address] [address] MCH (RBC) [Entitic mass] 23.8 pg Low 27.0-33.0 [facility] Comment on above: Performed By: #### C BC, GFR, MORPH, RFP, DIFF #### [address] [address] MCHC 31.3 G/dL Low 32.0-36.0 [facility] Comment on above: Performed By: #### C BC, GFR, MORPH, RFP, DIFF #### [address] [address] MCV (RBC) [Entitic vol] 75.8 fL Low 80.0-99.0 [facility] Comment on above: Performed By: #### C BC, GFR, MORPH, RFP, DIFF #### [place] [address] Platelet 218 10 3/mcL Normal 150-450 [facility] Comment on above: Performed By: #### C BC, GFR, MORPH, RFP, DIFF #### [place] [address] Platelet mean volume (Bld) [Entitic vol] 7.4 fL Normal 6.6-10.5 [facility] Comment on above: Performed By: #### C BC, GFR, MORPH, RFP, DIFF #### [place] [address] RBC 3.36 10 6/mcL Low 4.10-5.30 [facility] Comment on above: Performed By: #### C BC, GFR, MORPH, RFP, DIFF #### [address] [address] WBC 5.3 10 3/mcL Normal 4.5-10.8 [facility] Comment on above: Performed By: #### C BC, GFR, MORPH, RFP, DIFF #### [address] [address] RFPon 04-06-2025 Albumin Level 2.4 G/dL Low 3.2-4.8 [facility] Comment on above: Performed By: #### C BC, GFR, MORPH, RFP, DIFF #### [address] [address] BUN/Creatinine Ratio 12.8 ratio Normal 10.0-22.0 [facility] Comment on above: Performed By: #### C BC, GFR, MORPH, RFP, DIFF #### [address] [address] Calcium [Mass/Vol] 9.1 mg/dL Normal 8.7-10.4 [facility] Comment on above: Performed By: #### C BC, GFR, MORPH, RFP, DIFF #### [address] [address] Chloride [Moles/Vol] 97 mmol/L Low 98-110 [facility] Comment on above: Performed By: #### C BC, GFR, MORPH, RFP, DIFF #### [address] [address] CO2 [Moles/Vol] 27 mmol/L Normal 22-32 [facility] Comment on above: Performed By: #### C BC, GFR, MORPH, RFP, DIFF #### [address] [address] Creatinine [Mass/Vol] 3.04 mg/dL High 0.50-1.20 [facility] Comment on above: Result Comment: Test ing performed on [employer] analyzer using enzymatic creatinine methodology. Performed By: #### C BC, GFR, MORPH, RFP, DIFF #### [address] [address] Electrolyte Balance 13.0 mEq/L Normal 4.0-15.0 [facility] Comment on above: Performed By: #### C BC, GFR, MORPH, RFP, DIFF #### [address] [address] Glucose [Mass/Vol] 140 mg/dL High 82-115 [facility] Comment on above: Performed By: #### C BC, GFR, MORPH, RFP, DIFF #### [address] [address] Phosphate [Mass/Vol] 5.6 mg/dL High 2.4-5.1 [facility] Comment on above: Performed By: #### C BC, GFR, MORPH, RFP, DIFF #### [address] [address] Potassium [Moles/Vol] 4.3 mmol/L Normal 3.5-5.0 [facility] Comment on above: Performed By: #### C BC, GFR, MORPH, RFP, DIFF #### [address] [address] Sodium [Moles/Vol] 137 mmol/L Normal 136-145 [facility] Comment on above: Performed By: #### C BC, GFR, MORPH, RFP, DIFF #### [address] [address] Urea nitrogen [Mass/Vol] 39.0 mg/dL High 8.0-22.0 [facility] Comment on above: Performed By: #### C BC, GFR, MORPH, RFP, DIFF #### [address] [address] XR CHEST 1 VIEWon 04-05-2025 XR CHEST 1 VIEW ORIGINAL EXAMINATION: ONE XRAY VIEW OF THE CHEST04/05/2025 10:55 am Portable upright COMPARISON: None HISTORY: ORDERING SYSTEM PROVIDED HISTORY: Reason for Exam: s/p RIGHT thoracentesis, FINDINGS: No definite or significant right-sided pneumothorax is seen. No residual right pleural effusion. There is some left pleural effusion increased from the earlier study no. No other significant change. IMPRESSION: No postprocedure pneumothorax. Interpreted by: Rayray Talamantes MD Preliminary Report By: Rayray Talamantes MD Electronically signed By Rayray Talamantes MD Dictated Date: 04/05/2025 11:06:09 AM Prelim Date: 04/05/2025 11:06:53 AM Sign Date: 04/05/2025 11:06:53 AM Ordering Provider: YANY SALDANA Interpreted by: Rayray Talamantes MD Preliminary Report By: Rayray Talamantes MD Electronically signed By Rayray Talamantes MD Dictated Date: 04/05/2025 11:06:09 AM Prelim Date: 04/05/2025 11:06:53 AM Sign Date: 04/05/2025 11:06:53 AM Ordering Provider: YANY SALDANA [facility] .GFRon 04-04-2025 Estimated Glomerular Filtration Rate 14 ml/min/1.73sqm [facility]IN Comment on above: Result Comment: Stages of Chronic Kidney Disease (CKD) Stage Description eGFR(ml/min/1.73 sq.m.) CKD 1 Normal kidney function or >=90 normal kindney function with possible kidney damage (ex. Proteinuria) CKD 2 Kidney damage with mild loss 60-89 of kidney function CKD 3a Mild to moderate loss of kidney 45-59 function CKD 3b Moderate to severe loss of 30-44 of kindey function CKD 4 Severe loss of kidney function 15-29 CKD 5 Kidney failure <15 Note: (go live 2024) the eGFR calculation was updated to the 2020 CKD-EPI creatinine equation without a race factor to calculate the eGFR results. Performed By: #### C BC, GFR, MORPH, RFP, DIFF #### [address] [address] RFPon 04-04-2025 Albumin Level 2.2 G/dL Low 3.2-4.8 [facility] Comment on above: Performed By: #### C BC, GFR, MORPH, RFP, DIFF #### [address] [address] BUN/Creatinine Ratio 16.4 ratio Normal 10.0-22.0 [facility] Comment on above: Performed By: #### C BC, GFR, MORPH, RFP, DIFF #### [address] [address] Calcium [Mass/Vol] 8.8 mg/dL Normal 8.7-10.4 [facility] Comment on above: Performed By: #### C BC, GFR, MORPH, RFP, DIFF #### [address] [address] Chloride [Moles/Vol] 97 mmol/L Low 98-110 [facility] Comment on above: Performed By: #### C BC, GFR, MORPH, RFP, DIFF #### [address] [address] CO2 [Moles/Vol] 26 mmol/L Normal 22-32 [facility] Comment on above: Performed By: #### C BC, GFR, MORPH, RFP, DIFF #### [address] [address] Creatinine [Mass/Vol] 3.24 mg/dL High 0.50-1.20 [facility] Comment on above: Result Comment: Test ing performed on [employer] analyzer using enzymatic creatinine methodology. Performed By: #### C BC, GFR, MORPH, RFP, DIFF #### [address] [address] Electrolyte Balance 14.0 mEq/L Normal 4.0-15.0 [facility] Comment on above: Performed By: #### C BC, GFR, MORPH, RFP, DIFF #### [address] [address] Glucose [Mass/Vol] 141 mg/dL High 82-115 [facility] Comment on above: Performed By: #### C BC, GFR, MORPH, RFP, DIFF #### [address] [address] Phosphate [Mass/Vol] 6.9 mg/dL High 2.4-5.1 [facility] Comment on above: Performed By: #### C BC, GFR, MORPH, RFP, DIFF #### [address] [address] Potassium [Moles/Vol] 4.9 mmol/L Normal 3.5-5.0 [facility] Comment on above: Performed By: #### C BC, GFR, MORPH, RFP, DIFF #### [address] [address] Sodium [Moles/Vol] 137 mmol/L Normal 136-145 [facility] [facility] Comment on above: Performed By: #### C BC, GFR, MORPH, RFP, DIFF #### [address] [address] Urea nitrogen [Mass/Vol] 53.0 mg/dL High 8.0-22.0 [facility] MAIN Comment on above: Performed By: #### C BC, GFR, MORPH, RFP, DIFF #### [address] [address] .Auto Diffon 04-02-2024 Basophil, Absolute 0.1 10 3/mcL Normal 0.0-0.3 [facility] MAIN Comment on above: Performed By: #### G FR, RFP #### [address] [address] Basophils/100 WBC (Bld) 1.0 % Normal 0.0-2.5 [facility] MAIN Comment on above: Performed By: #### G FR, RFP #### [address] [address] Eosinophil, Absolute 0.2 10 3/mcL Normal 0.0-0.7 [facility] MAIN Comment on above: Performed By: #### G FR, RFP #### [address] [address] Eosinophils/100 WBC (Bld) 3.8 % Normal 0.0-6.0 [facility] Comment on above: Performed By: #### G FR, RFP #### [address] [address] Lymphocyte, Absolute 0.8 10 3/mcL Low 0.9-4.3 [facility] MAIN Comment on above: Performed By: #### G FR, RFP #### [address] [address] Lymphocytes/100 WBC (Bld) 13.5 % Low 20.0-40.0 [facility] Comment on above: Performed By: #### G FR, RFP #### [address] [address] Monocyte, Absolute 0.7 10 3/mcL Normal 0.1-1.4 [facility] MAIN Comment on above: Performed By: #### G FR, RFP #### [address] [address] Monocytes/100 WBC (Bld) 11.7 % Normal 2.0-13.0 [facility] MAIN Comment on above: Performed By: #### G FR, RFP #### [address] [address] Neutrophils/100 WBC (Bld) 70.0 % Normal 50.0-75.0 [facility] Comment on above: Performed By: #### G FR, RFP #### [place] [address] .GFRon 04-02-2025 Estimated Glomerular Filtration Rate 13 ml/min/1.73sqm [facility] MAIN Comment on above: Result Comment: Stages of Chronic Kidney Disease (CKD) Stage Description eGFR(ml/min/1.73 sq.m.) CKD 1 Normal kidney function or >=90 normal kindney function with possible kidney damage (ex. Proteinuria) CKD 2 Kidney damage with mild loss 60-89 of kidney function CKD 3a Mild to moderate loss of kidney 45-59 function CKD 3b Moderate to severe loss of 30-44 of kindey function CKD 4 Severe loss of kidney function 15-29 CKD 5 Kidney failure <15 Note: (go live 2024) the eGFR calculation was updated to the 2020 CKD-EPI creatinine equation without a race factor to calculate the eGFR results. Performed By: #### C BC, GFR, MORPH, RFP, DIFF #### [place] [address] .Morphon 04-02-2025 Anisocytosis Ql (Bld) 2+ Normal [facility] MAIN Comment on above: Performed By: #### G FR, RFP #### [place] [address] Microcytosis 2+ Normal [facility] MAIN Comment on above: Performed By: #### G FR, RFP #### [place] [address] Ovalocytes 1+ [facility] MAIN Comment on above: Performed By: #### G FR, RFP #### [place] [address] Platelet Estimate Normal [facility] MAIN Comment on above: Performed By: #### G FR, RFP #### [place] [address] Poik 1+ [facility] MAIN Comment on above: Performed By: #### G FR, RFP #### [place] [address] .NEUABSon 04-02-2025 Neutrophil, Absolute 4.2 10 3/mcL Normal 2.3-8.1 [facility] MAIN Comment on above: Performed By: #### G FR, RFP #### [place] [id number] CBCon 04-02-2025 Erythrocyte distribution width (RBC) [Ratio] 27.5 % High 11.5-15.5 [facility]IN Comment on above: Performed By: #### G FR, RFP #### [place] [address] Hematocrit (Bld) [Volume fraction] 24.2 % Low 34.0-46.0 [facility]IN Comment on above: Performed By: #### G FR, RFP #### [place] [address] Hgb 7.8 G/dL Low 12.0-16.0 [facility] Comment on above: Performed By: #### G FR, RFP #### [place] [address] MCH (RBC) [Entitic mass] 24.0 pg Low 27.0-33.0 [facility]IN Comment on above: Performed By: #### G FR, RFP #### [place] [address] MCHC 32.0 G/dL Normal 32.0-36.0 [facility] Comment on above: Performed By: #### G FR, RFP #### [place] [address] MCV (RBC) [Entitic vol] 74.9 fL Low 80.0-99.0 [facility] MAIN Comment on above: Performed By: #### G FR, RFP #### [place] [id number] Platelet 242 10 3/mcL Normal 150-450 [facility] MAIN Comment on above: Performed By: #### G FR, RFP #### [place] [id number] Platelet mean volume (Bld) [Entitic vol] 7.6 fL Normal 6.6-10.5 [facility] MAIN Comment on above: Performed By: #### G FR, RFP #### [address] [address] RBC 3.23 10 6/mcL Low 4.10-5.30 [facility] MA[facility] Comment on above: Performed By: #### G FR, RFP #### [address] [address] WBC 6.0 10 3/mcL Normal 4.5-10.8 [facility] MA[facility] Comment on above: Performed By: #### G FR, RFP #### [address] [address] RFPon 04-02-2025 Albumin Level 2.4 G/dL Low 3.2-4.8 [facility] MA[facility] Comment on above: Performed By: #### C BC, GFR, MORPH, RFP, DIFF #### [address] [address] BUN/Creatinine Ratio 16.5 ratio Normal 10.0-22.0 [facility] MAIN Comment on above: Performed By: #### C BC, GFR, MORPH, RFP, DIFF #### [address] [address] Calcium [Mass/Vol] 8.9 mg/dL Normal 8.7-10.4 [facility] Comment on above: Performed By: #### C BC, GFR, MORPH, RFP, DIFF #### [address] [address] Chloride [Moles/Vol] 98 mmol/L Normal 98-110 [facility] MA[facility] Comment on above: Performed By: #### C BC, GFR, MORPH, RFP, DIFF #### [address] [address] CO2 [Moles/Vol] 25 mmol/L Normal 22-32 [facility] MA[facility] Comment on above: Performed By: #### C BC, GFR, MORPH, RFP, DIFF #### [address] [address] Creatinine [Mass/Vol] 3.52 mg/dL High 0.50-1.20 [facility] MAIN Comment on above: Result Comment: Test ing performed on [employer] analyzer using enzymatic creatinine methodology. Performed By: #### C BC, GFR, MORPH, RFP, DIFF #### [address] [address] Electrolyte Balance 14.0 mEq/L Normal 4.0-15.0 [facility] MAIN Comment on above: Performed By: #### C BC, GFR, MORPH, RFP, DIFF #### [address] [address] Glucose [Mass/Vol] 105 mg/dL Normal 82-115 [facility] Comment on above: Performed By: #### C BC, GFR, MORPH, RFP, DIFF #### [address] [address] Phosphate [Mass/Vol] 8.0 mg/dL High 2.4-5.1 [facility] MAIN Comment on above: Performed By: #### C BC, GFR, MORPH, RFP, DIFF #### [address] [address] Potassium [Moles/Vol] 5.7 mmol/L High 3.5-5.0 [facility] MAIN Comment on above: Performed By: #### C BC, GFR, MORPH, RFP, DIFF #### [address] [address] Sodium [Moles/Vol] 137 mmol/L Normal 136-145 [facility] Comment on above: Performed By: #### C BC, GFR, MORPH, RFP, DIFF #### [address] [address] Urea nitrogen [Mass/Vol] 58.0 mg/dL High 8.0-22.0 [facility] Comment on above: Performed By: #### C BC, GFR, MORPH, RFP, DIFF #### [address] [address] .Auto Diffon 03-30-2025 Basophil, Absolute 0.1 10 3/mcL Normal 0.0-0.3 [facility] MAIN Comment on above: Performed By: #### M G, RFP, BMP, GFR #### [address] [address] Basophils/100 WBC (Bld) 1.1 % Normal 0.0-2.5 [facility] MAIN Comment on above: Performed By: #### M G, RFP, BMP, GFR #### [address] [address] Eosinophil, Absolute 0.2 10 3/mcL Normal 0.0-0.7 [facility] MAIN Comment on above: Performed By: #### M G, RFP, BMP, GFR #### [address] [address] Eosinophils/100 WBC (Bld) 3.2 % Normal 0.0-6.0 [facility] Comment on above: Performed By: #### M G, RFP, BMP, GFR #### [address] [address] Lymphocyte, Absolute 0.7 10 3/mcL Low 0.9-4.3 [facility] MAIN Comment on above: Performed By: #### M G, RFP, BMP, GFR #### [address] [address] Lymphocytes/100 WBC (Bld) 14.1 % Low 20.0-40.0 [facility] MAIN Comment on above: Performed By: #### M G, RFP, BMP, GFR #### [address] [address] Monocyte, Absolute 0.7 10 3/mcL Normal 0.1-1.4 [facility] MAIN Comment on above: Performed By: #### M G, RFP, BMP, GFR #### [address] [address] Monocytes/100 WBC (Bld) 12.8 % Normal 2.0-13.0 [facility] MAIN Comment on above: Performed By: #### M G, RFP, BMP, GFR #### [address] [address] Neutrophils/100 WBC (Bld) 68.8 % Normal 50.0-75.0 [facility] MAIN Comment on above: Performed By: #### M G, RFP, BMP, GFR #### [address] [address] .GFRon 03-30-2025 Estimated Glomerular Filtration Rate 16 ml/min/1.73sqm [facility] MAIN Comment on above: Result Comment: Stages of Chronic Kidney Disease (CKD) Stage Description eGFR(ml/min/1.73 sq.m.) CKD 1 Normal kidney function or >=90 normal kindney function with possible kidney damage (ex. Proteinuria) CKD 2 Kidney damage with mild loss 60-89 of kidney function CKD 3a Mild to moderate loss of kidney 45-59 function CKD 3b Moderate to severe loss of 30-44 of kindey function CKD 4 Severe loss of kidney function 15-29 CKD 5 Kidney failure <15 Note: (go live 2024) the eGFR calculation was updated to the 2020 CKD-EPI creatinine equation without a race factor to calculate the eGFR results. Performed By: #### M G, RFP, BMP, GFR #### [place] [address] .Morphon 03-30-2025 Anisocytosis Ql (Bld) 2+ Normal [facility] MAIN Comment on above: Performed By: #### M G, RFP, BMP, GFR #### [place] [address] Hypochrom 1+ [facility] MAIN Comment on above: Performed By: #### M G, RFP, BMP, GFR #### [place] [address] Microcytosis 2+ [facility] MAIN Comment on above: Performed By: #### M G, RFP, BMP, GFR #### [place] [address] Ovalocytes 1+ [facility] MAIN Comment on above: Performed By: #### M G, RFP, BMP, GFR #### [place] [address] Platelet Estimate Normal [facility] MAIN Comment on above: Performed By: #### M G, RFP, BMP, GFR #### [place] [address] Poik 1+ [facility] MAIN Comment on above: Performed By: #### M G, RFP, BMP, GFR #### [place] [address] .NEUABSon 03-30-2025 Neutrophil, Absolute 3.6 10 3/mcL Normal 2.3-8.1 [facility] MAIN Comment on above: Performed By: #### M G, RFP, BMP, GFR #### [place] [address] CBCon 03-30-2025 Erythrocyte distribution width (RBC) [Ratio] 27.7 % High 11.5-15.5 [facility]IN Comment on above: Performed By: #### M G, RFP, BMP, GFR #### [place] [address] Hematocrit (Bld) [Volume fraction] 24.9 % Low 34.0-46.0 [facility] MAIN Comment on above: Performed By: #### M G, RFP, BMP, GFR #### [place] [address] Hgb 7.8 G/dL Low 12.0-16.0 [facility] MAIN Comment on above: Performed By: #### M G, RFP, BMP, GFR #### [place] [address] MCH (RBC) [Entitic mass] 23.4 pg Low 27.0-33.0 [facility] MAIN Comment on above: Performed By: #### M G, RFP, BMP, GFR #### [place] [address] MCHC 31.3 G/dL Low 32.0-36.0 [facility] MAIN Comment on above: Performed By: #### M G, RFP, BMP, GFR #### [place] [address] MCV (RBC) [Entitic vol] 74.8 fL Low 80.0-99.0 [facility] MAIN Comment on above: Performed By: #### M G, RFP, BMP, GFR #### [place] [address] Platelet 231 10 3/mcL Normal 150-450 [facility] MAIN Comment on above: Performed By: #### M G, RFP, BMP, GFR #### [facility] [address] [place], [place] [address] Platelet mean volume (Bld) [Entitic vol] 7.7 fL Normal 6.6-10.5 [facility] Comment on above: Performed By: #### M G, RFP, BMP, GFR #### [address] [address] RBC 3.33 10 6/mcL Low 4.10-5.30 [facility] MAIN Comment on above: Performed By: #### M G, RFP, BMP, GFR #### [address] [address] WBC 5.2 10 3/mcL Normal 4.5-10.8 [facility] MAIN Comment on above: Performed By: #### M G, RFP, BMP, GFR #### [address] [address] RFPon 03-30-2025 Albumin Level 2.1 G/dL Low 3.2-4.8 [facility] MA[facility] Comment on above: Performed By: #### M G, RFP, BMP, GFR #### [place] [id number] BUN/Creatinine Ratio 15.6 ratio Normal 10.0-22.0 [facility] MAIN Comment on above: Performed By: #### M G, RFP, BMP, GFR #### [address] [address] Calcium [Mass/Vol] 9.0 mg/dL Normal 8.7-10.4 [facility] Comment on above: Performed By: #### M G, RFP, BMP, GFR #### [address] [address] Chloride [Moles/Vol] 96 mmol/L Low 98-110 [facility] MAIN Comment on above: Performed By: #### M G, RFP, BMP, GFR #### [address] [address] CO2 [Moles/Vol] 27 mmol/L Normal 22-32 [facility] MAIN Comment on above: Performed By: #### M G, RFP, BMP, GFR #### [place] [id number] Creatinine [Mass/Vol] 2.94 mg/dL High 0.50-1.20 [facility] MAIN Comment on above: Result Comment: Test ing performed on [employer] analyzer using enzymatic creatinine methodology. Performed By: #### M G, RFP, BMP, GFR #### [address] [address] Electrolyte Balance 14.0 mEq/L Normal 4.0-15.0 [facility] MAIN Comment on above: Performed By: #### M G, RFP, BMP, GFR #### [address] [address] Glucose [Mass/Vol] 173 mg/dL High 82-115 [facility] Comment on above: Performed By: #### M Linda, RFP, BMP, GFR #### [address] [address] Phosphate [Mass/Vol] 7.5 mg/dL High 2.4-5.1 [facility] MAIN Comment on above: Performed By: #### Iain G, RFP, BMP, GFR #### [address] [address] Potassium [Moles/Vol] 4.6 mmol/L Normal 3.5-5.0 [facility] MAIN Comment on above: Performed By: #### M G, RFP, BMP, GFR #### [address] [address] Sodium [Moles/Vol] 137 mmol/L Normal 136-145 [facility] MA[facility] Comment on above: Performed By: #### M G, RFP, BMP, GFR #### [address] [address] Urea nitrogen [Mass/Vol] 46.0 mg/dL High 8.0-22.0 [facility] MAIN Comment on above: Performed By: #### M G, RFP, BMP, GFR #### [address] [address] .GFRon 03-28-2025 Estimated Glomerular Filtration Rate 15 ml/min/1.73sqm Normal [facility] MAIN Comment on above: Result Comment: Stages of Chronic Kidney Disease (CKD) Stage Description eGFR(ml/min/1.73 sq.m.) CKD 1 Normal kidney function or >=90 normal kindney function with possible kidney damage (ex. Proteinuria) CKD 2 Kidney damage with mild loss 60-89 of kidney function CKD 3a Mild to moderate loss of kidney 45-59 function CKD 3b Moderate to severe loss of 30-44 of kindey function CKD 4 Severe loss of kidney function 15-29 CKD 5 Kidney failure <15 Note: (go live 2024) the eGFR calculation was updated to the 2020 CKD-EPI creatinine equation without a race factor to calculate the eGFR results. Performed By: #### C BC, GFR, MORPH, RFP, DIFF #### [address] [address] RFPon 03-28-2025 Albumin Level 2.2 G/dL Low 3.2-4.8 [facility] MAIN Comment on above: Performed By: #### G FR, RFP #### [address] [address] BUN/Creatinine Ratio 17.8 ratio Normal 10.0-22.0 [facility] MAIN Comment on above: Performed By: #### G FR, RFP #### [address] [address] Calcium [Mass/Vol] 8.7 mg/dL Normal 8.7-10.4 [facility] Comment on above: Performed By: #### G FR, RFP #### [address] [address] Chloride [Moles/Vol] 96 mmol/L Low 98-110 [facility] MAIN Comment on above: Performed By: #### G FR, RFP #### [address] [address] CO2 [Moles/Vol] 29 mmol/L Normal 22-32 [facility] MAIN Comment on above: Performed By: #### G FR, RFP #### [address] [address] Creatinine [Mass/Vol] 3.09 mg/dL High 0.50-1.20 [facility] MAIN Comment on above: Result Comment: Test ing performed on [employer] analyzer using enzymatic creatinine methodology. Performed By: #### G FR, RFP #### [facility] [address] [place], [place] [address] Electrolyte Balance 10.0 mEq/L Normal 4.0-15.0 [facility] MAIN Comment on above: Performed By: #### Linda FR, RFP #### [address] [address] Glucose [Mass/Vol] 129 mg/dL High 82-115 [facility] Comment on above: Performed By: #### Linda DAVENPORT, RFP #### [address] [address] Phosphate [Mass/Vol] 7.8 mg/dL High 2.4-5.1 [facility] MAIN Comment on above: Performed By: #### Linda DAVENPORT, RFP #### [address] [address] Potassium [Moles/Vol] 4.9 mmol/L Normal 3.5-5.0 [facility] MAIN Comment on above: Performed By: #### Linda DAVENPORT, RFP #### [address] [address] Sodium [Moles/Vol] 135 mmol/L Low 136-145 [facility] Comment on above: Performed By: #### Linda DAVENPORT, RFP #### [address] [address] Urea nitrogen [Mass/Vol] 55.0 mg/dL High 8.0-22.0 [facility] MA[facility] Comment on above: Performed By: #### Linda DAVENPORT, RFP #### [address] [address] .GFRon 03-27-2025 Estimated Glomerular Filtration Rate 21 ml/min/1.73sqm Normal [facility] MAIN Comment on above: Result Comment: Stages of Chronic Kidney Disease (CKD) Stage Description eGFR(ml/min/1.73 sq.m.) CKD 1 Normal kidney function or >=90 normal kindney function with possible kidney damage (ex. Proteinuria) CKD 2 Kidney damage with mild loss 60-89 of kidney function CKD 3a Mild to moderate loss of kidney 45-59 function CKD 3b Moderate to severe loss of 30-44 of kindey function CKD 4 Severe loss of kidney function 15-29 CKD 5 Kidney failure <15 Note: (go live 2024) the eGFR calculation was updated to the 2020 CKD-EPI creatinine equation without a race factor to calculate the eGFR results. Performed By: #### Iain Mckeon, RFP, BMP, GFR #### [address] [address] CMPon 03-27-2025 Albumin Level 2.2 G/dL Low 3.2-4.8 [facility] MAIN Comment on above: Performed By: #### M Linda, RFP, BMP, GFR #### [place] [id number] Albumin/Globulin [Mass ratio] 0.6 {ratio} Low 0.9-1.6 [facility] MAIN Comment on above: Performed By: #### Iain Mckeon, RFP, BMP, GFR #### [place] [id number] ALP [Catalytic activity/Vol] 208 U/L High 38-126 [facility] MAIN Comment on above: Performed By: #### Iain Mckeon, RFP, BMP, GFR #### [place] [id number] ALT [Catalytic activity/Vol] 14 U/L Normal 10-49 [facility] MAIN Comment on above: Performed By: #### M Linda, RFP, BMP, GFR #### [place] [id number] AST [Catalytic activity/Vol] 19 U/L Normal 8-34 [facility] MAIN Comment on above: Performed By: #### Iain Mckeon, RFP, BMP, GFR #### [place] [id number] Bili Total 0.30 mg/dL Normal 0.20-1.20 [facility] MAIN Comment on above: Result Comment: Use of this assay is not recommended for patients undergoing treatment with eltrombopag due to the potential for falsely elevated results. Performed By: #### M G, RFP, BMP, GFR #### [place] [id number] BUN/Creatinine Ratio 19.6 ratio Normal 10.0-22.0 [facility] MAIN Comment on above: Performed By: #### M G, RFP, BMP, GFR #### [address] [address] Calcium [Mass/Vol] 8.4 mg/dL Low 8.7-10.4 [facility] Comment on above: Performed By: #### M G, RFP, BMP, GFR #### [address] [address] Chloride [Moles/Vol] 97 mmol/L Low 98-110 [facility] MAIN Comment on above: Performed By: #### M G, RFP, BMP, GFR #### [address] [address] CO2 [Moles/Vol] 30 mmol/L Normal 22-32 [facility] MA[facility] Comment on above: Performed By: #### M G, RFP, BMP, GFR #### [address] [address] Creatinine [Mass/Vol] 2.35 mg/dL High 0.50-1.20 [facility] MAIN Comment on above: Result Comment: Test ing performed on [employer] analyzer using enzymatic creatinine methodology. Performed By: #### M G, RFP, BMP, GFR #### [address] [address] Electrolyte Balance 8.0 mEq/L Normal 4.0-15.0 [facility] MAIN Comment on above: Performed By: #### M G, RFP, BMP, GFR #### [address] [address] Globulin 3.7 G/dL Normal 2.5-4.2 [facility] Comment on above: Performed By: #### M G, RFP, BMP, GFR #### [address] [address] Glucose [Mass/Vol] 170 mg/dL High 82-115 [facility] Comment on above: Performed By: #### M G, RFP, BMP, GFR #### [address] [address] Potassium [Moles/Vol] 4.8 mmol/L Normal 3.5-5.0 [facility] MA[facility] Comment on above: Performed By: #### M G, RFP, BMP, GFR #### [address] [address] Sodium [Moles/Vol] 135 mmol/L Low 136-145 [facility] Comment on above: Performed By: #### M G, RFP, BMP, GFR #### [address] [address] Total Protein 5.9 G/dL Normal 5.7-8.2 [facility] Comment on above: Performed By: #### M G, RFP, BMP, GFR #### [address] [address] Urea nitrogen [Mass/Vol] 46.0 mg/dL High 8.0-22.0 [facility] Comment on above: Performed By: #### M G, RFP, BMP, GFR #### [address] [address] MGon 03-27-2025 Magnesium [Mass/Vol] 2.4 mg/dL Normal 1.6-2.4 [facility]IN Comment on above: Performed By: #### M G, RFP, BMP, GFR #### [address] [address] .GFRon 03-26-2025 Estimated Glomerular Filtration Rate 14 ml/min/1.73sqm Normal [facility] Comment on above: Result Comment: Stages of Chronic Kidney Disease (CKD) Stage Description eGFR(ml/min/1.73 sq.m.) CKD 1 Normal kidney function or >=90 normal kindney function with possible kidney damage (ex. Proteinuria) CKD 2 Kidney damage with mild loss 60-89 of kidney function CKD 3a Mild to moderate loss of kidney 45-59 function CKD 3b Moderate to severe loss of 30-44 of kindey function CKD 4 Severe loss of kidney function 15-29 CKD 5 Kidney failure <15 Note: (go live 2024) the eGFR calculation was updated to the 2020 CKD-EPI creatinine equation without a race factor to calculate the eGFR results. Performed By: #### C BC, GFR, MORPH, RFP, DIFF #### [address] [address] .Manual Diffon 03-26-2025 Bands 2.0 % Normal 0.0-5.0 [facility] Comment on above: Performed By: #### C BC, GFR, MORPH, RFP, DIFF #### [address] [address] Basophil %, Manual 1.0 % Normal 0.0-2.5 [facility] Comment on above: Performed By: #### C BC, GFR, MORPH, RFP, DIFF #### [address] [address] Basophil, Abs Manual 0.1 10 3/mcL Normal 0.0-0.3 [facility] MAIN Comment on above: Performed By: #### C BC, GFR, MORPH, RFP, DIFF #### [address] [address] Eosinophil %, Manual 2.0 % Normal 0.0-6.0 [facility] Comment on above: Performed By: #### C BC, GFR, MORPH, RFP, DIFF #### [address] [address] Eosinophil, Abs Manual 0.2 10 3/mcL Normal 0.0-0.7 [facility] Comment on above: Performed By: #### C BC, GFR, MORPH, RFP, DIFF #### [address] [address] Lymphocyte %, Manual 9.0 % Low 20.0-40.0 [facility] Comment on above: Performed By: #### C BC, GFR, MORPH, RFP, DIFF #### [address] [address] Lymphocyte, Abs Manual 0.9 10 3/mcL Normal 0.9-4.3 [facility] Comment on above: Performed By: #### C BC, GFR, MORPH, RFP, DIFF #### [address] [address] Monocyte %, Manual 11.0 % Normal 2.0-13.0 [facility] Comment on above: Performed By: #### C BC, GFR, MORPH, RFP, DIFF #### [facility] [address] [place], [place] [address] Monocyte, Abs Manual 1.1 10 3/mcL Normal 0.1-1.4 [facility] Comment on above: Performed By: #### C BC, GFR, MORPH, RFP, DIFF #### [place] [address] Neutrophil %, Manual 75.0 % Normal 50.0-75.0 [facility] Comment on above: Performed By: #### C BC, GFR, MORPH, RFP, DIFF #### [place] [address] Neutrophil, Abs Manual 7.8 10 3/mcL Normal 2.3-8.1 [facility] Comment on above: Performed By: #### C BC, GFR, MORPH, RFP, DIFF #### [place] [address] Nucleated RBC 0.0 /100 WBC Normal [facility] Comment on above: Performed By: #### C BC, GFR, MORPH, RFP, DIFF #### [place] [address] .[place] 03-26-2025 Anisocytosis Ql (Bld) 2+ Normal [facility] [place] [facility] [facility] Comment on above: Performed By: #### C BC, GFR, MORPH, RFP, DIFF #### [place] [address] Microcytosis 2+ Normal [facility] Comment on above: Performed By: #### C BC, GFR, MORPH, RFP, DIFF #### [place] [address] Ovalocytes 1+ Normal [facility] Comment on above: Performed By: #### C BC, GFR, MORPH, RFP, DIFF #### [place] [address] Platelet Clumps Few Normal [facility] Comment on above: Performed By: #### C BC, GFR, MORPH, RFP, DIFF #### [place] [address] Platelet Estimate Normal [facility] MAIN Comment on above: Performed By: #### C BC, GFR, MORPH, RFP, DIFF #### [place] [address] CBCon 03-26-2025 Platelet 194 10 3/mcL Normal 150-450 [facility] Comment on above: Performed By: #### C BC, GFR, MORPH, RFP, DIFF #### [address] [address] Platelet mean volume (Bld) [Entitic vol] 8.1 fL Normal 6.6-10.5 [facility] Comment on above: Performed By: #### C BC, GFR, MORPH, RFP, DIFF #### [place] [address] WBC 10.1 10 3/mcL Normal 4.5-10.8 [facility] Comment on above: Performed By: #### C BC, GFR, MORPH, RFP, DIFF #### [place] [address] Erythrocyte distribution width (RBC) [Ratio] 27.8 % High 11.5-15.5 [facility] Comment on above: Performed By: #### C BC, GFR, MORPH, RFP, DIFF #### [place] [address] Hematocrit (Bld) [Volume fraction] 24.0 % Low 34.0-46.0 [facility] Comment on above: Performed By: #### C BC, GFR, MORPH, RFP, DIFF #### [place] [address] Hgb 8.0 G/dL Low 12.0-16.0 [facility] Comment on above: Performed By: #### C BC, GFR, MORPH, RFP, DIFF #### [address] [address] MCH (RBC) [Entitic mass] 24.2 pg Low 27.0-33.0 [facility] Comment on above: Performed By: #### C BC, GFR, MORPH, RFP, DIFF #### [address] [address] MCHC 33.1 G/dL Normal 32.0-36.0 [facility] Comment on above: Performed By: #### C BC, GFR, MORPH, RFP, DIFF #### [address] [address] MCV (RBC) [Entitic vol] 73.0 fL Low 80.0-99.0 [facility] Comment on above: Performed By: #### C BC, GFR, MORPH, RFP, DIFF #### [address] [address] RBC 3.29 10 6/mcL Low 4.10-5.30 [facility] Comment on above: Performed By: #### C BC, GFR, MORPH, RFP, DIFF #### [address] [address] RFPon 03-26-2025 Albumin Level 2.4 G/dL Low 3.2-4.8 [facility] Comment on above: Performed By: #### C BC, GFR, MORPH, RFP, DIFF #### [address] [address] BUN/Creatinine Ratio 19.9 ratio Normal 10.0-22.0 [facility] Comment on above: Performed By: #### C BC, GFR, MORPH, RFP, DIFF #### [address] [address] Calcium [Mass/Vol] 8.8 mg/dL Normal 8.7-10.4 [facility] Comment on above: Performed By: #### C BC, GFR, MORPH, RFP, DIFF #### [address] [address] Chloride [Moles/Vol] 94 mmol/L Low 98-110 [facility] Comment on above: Performed By: #### C BC, GFR, MORPH, RFP, DIFF #### [address] [address] CO2 [Moles/Vol] 23 mmol/L Normal 22-32 [facility] Comment on above: Performed By: #### C BC, GFR, MORPH, RFP, DIFF #### [address] [address] Creatinine [Mass/Vol] 3.32 mg/dL High 0.50-1.20 [facility] Comment on above: Result Comment: Test ing performed on [employer] analyzer using enzymatic creatinine methodology. Performed By: #### C BC, GFR, MORPH, RFP, DIFF #### [address] [address] Electrolyte Balance 15.0 mEq/L Normal 4.0-15.0 [facility] Comment on above: Performed By: #### C BC, GFR, MORPH, RFP, DIFF #### [address] [address] Glucose [Mass/Vol] 190 mg/dL High 82-115 [facility] Comment on above: Performed By: #### C BC, GFR, MORPH, RFP, DIFF #### [address] [address] Phosphate [Mass/Vol] 8.7 mg/dL High 2.4-5.1 [facility] Comment on above: Performed By: #### C BC, GFR, MORPH, RFP, DIFF #### [address] [address] Potassium [Moles/Vol] 5.5 mmol/L High 3.5-5.0 [facility] Comment on above: Performed By: #### C BC, GFR, MORPH, RFP, DIFF #### [address] [address] Sodium [Moles/Vol] 132 mmol/L Low 136-145 [facility] Comment on above: Performed By: #### C BC, GFR, MORPH, RFP, DIFF #### [address] [address] Urea nitrogen [Mass/Vol] 66.0 mg/dL High 8.0-22.0 [facility] Comment on above: Performed By: #### C BC, GFR, MORPH, RFP, DIFF #### [address] [address] XR CHEST 1 VIEWon 03-26-2025 XR CHEST 1 VIEW ORIGINAL EXAMINATION: ONE XRAY VIEW OF THE CHEST03/26/2025 11:52 am COMPARISON: 03/22/2025 HISTORY: ORDERING SYSTEM PROVIDED HISTORY: Reason for Exam: sob FINDINGS: Tracheostomy tube remains in position. There is on going moderate to large right pleural effusion with underlying airspace disease. There is small left pleural effusion and airspace disease. No evidence of pneumothorax. Cardiac silhouette is grossly stable given differing position. Right IJ central catheter remains in position. No acute skeletal abnormality. IMPRESSION: 1. Moderate to large right pleural effusion with underlying airspace disease. 2. Small left pleural effusion and airspace disease. Interpreted by: Oscar Chiang DO Preliminary Report By: Oscar Chiang DO Electronically signed By Oscar Chiang DO Dictated Date: 03/26/2025 11:58:55 AM Prelim Date: 03/26/2025 12:00:03 PM Sign Date: 03/26/2025 12:00:03 PM Ordering Provider: BISHNU SALAMANCA Interpreted by: Oscar Chiang DO Preliminary Report By: Oscar Chiang DO Electronically signed By Oscar Chiang DO Dictated Date: 03/26/2025 11:58:55 AM Prelim Date: 03/26/2025 12:00:03 PM Sign Date: 03/26/2025 12:00:03 PM Ordering Provider: BISHNU SALAMANCA [facility] MAIN .GFRon 03-25-2025 Estimated Glomerular Filtration Rate 17 ml/min/1.73sqm [facility] MAIN Comment on above: Result Comment: Stages of Chronic Kidney Disease (CKD) Stage Description eGFR(ml/min/1.73 sq.m.) CKD 1 Normal kidney function or >=90 normal kindney function with possible kidney damage (ex. Proteinuria) CKD 2 Kidney damage with mild loss 60-89 of kidney function CKD 3a Mild to moderate loss of kidney 45-59 function CKD 3b Moderate to severe loss of 30-44 of kindey function CKD 4 Severe loss of kidney function 15-29 CKD 5 Kidney failure <15 Note: (go live 2024) the eGFR calculation was updated to the 2020 CKD-EPI creatinine equation without a race factor to calculate the eGFR results. Performed By: #### G , RFP #### [address] [address] BMPon 03-25-2025 BUN/Creatinine Ratio 21.8 ratio Normal 10.0-22.0 [facility] Comment on above: Performed By: #### G , RFP #### [address] [address] Calcium [Mass/Vol] 8.4 mg/dL Low 8.7-10.4 [facility] Comment on above: Performed By: #### G FR, RFP #### [address] [address] Chloride [Moles/Vol] 96 mmol/L Low 98-110 [facility] Comment on above: Performed By: #### G FR, RFP #### [address] [address] CO2 [Moles/Vol] 27 mmol/L Normal 22-32 [facility] Comment on above: Performed By: #### Linda DAVENPORT, RFP #### [address] [address] Creatinine [Mass/Vol] 2.85 mg/dL High 0.50-1.20 [facility] Comment on above: Result Comment: Test ing performed on [employer] analyzer using enzymatic creatinine methodology. Performed By: #### Linda FR, RFP #### [address] [address] Electrolyte Balance 8.0 mEq/L Normal 4.0-15.0 [facility] Comment on above: Performed By: #### Linda FR, RFP #### [address] [address] Glucose [Mass/Vol] 203 mg/dL High 82-115 [facility] Comment on above: Performed By: #### Linda FR, RFP #### [address] [address] Potassium [Moles/Vol] 4.8 mmol/L Normal 3.5-5.0 [facility] Comment on above: Performed By: #### G FR, RFP #### [address] [address] Sodium [Moles/Vol] 131 mmol/L Low 136-145 [facility] Comment on above: Performed By: #### G FR, RFP #### [address] [address] Urea nitrogen [Mass/Vol] 62.0 mg/dL High 8.0-22.0 [facility] Comment on above: Performed By: #### G FR, RFP #### [address] [address] .Auto Diffon 03-23-2025 Basophil, Absolute 0.1 10 3/mcL Normal 0.0-0.3 [facility] Comment on above: Performed By: #### M G, RFP, BMP, GFR #### [address] [address] Basophils/100 WBC (Bld) 1.1 % Normal 0.0-2.5 [facility] MAIN Comment on above: Performed By: #### M G, RFP, BMP, GFR #### [address] [address] Eosinophil, Absolute 0.1 10 3/mcL Normal 0.0-0.7 [facility] MA[facility] Comment on above: Performed By: #### M G, RFP, BMP, GFR #### [address] [address] Eosinophils/100 WBC (Bld) 2.0 % Normal 0.0-6.0 [facility] Comment on above: Performed By: #### M G, RFP, BMP, GFR #### [address] [address] Lymphocyte, Absolute 0.9 10 3/mcL Normal 0.9-4.3 [facility] Comment on above: Performed By: #### M G, RFP, BMP, GFR #### [address] [address] Lymphocytes/100 WBC (Bld) 14.1 % Low 20.0-40.0 [facility] Comment on above: Performed By: #### M G, RFP, BMP, GFR #### [address] [address] Monocyte, Absolute 0.5 10 3/mcL Normal 0.1-1.4 [facility] Comment on above: Performed By: #### M G, RFP, BMP, GFR #### [address] [address] Monocytes/100 WBC (Bld) 8.0 % Normal 2.0-13.0 [facility] Comment on above: Performed By: #### M G, RFP, BMP, GFR #### [address] [address] Neutrophils/100 WBC (Bld) 74.8 % Normal 50.0-75.0 [facility] Comment on above: Performed By: #### M G, RFP, BMP, GFR #### [address] [address] .GFRon 03-23-2025 Estimated Glomerular Filtration Rate 16 ml/min/1.73sqm Normal [facility] Comment on above: Result Comment: Stages of Chronic Kidney Disease (CKD) Stage Description eGFR(ml/min/1.73 sq.m.) CKD 1 Normal kidney function or >=90 normal kindney function with possible kidney damage (ex. Proteinuria) CKD 2 Kidney damage with mild loss 60-89 of kidney function CKD 3a Mild to moderate loss of kidney 45-59 function CKD 3b Moderate to severe loss of 30-44 of kindey function CKD 4 Severe loss of kidney function 15-29 CKD 5 Kidney failure <15 Note: (go live 2024) the eGFR calculation was updated to the 2020 CKD-EPI creatinine equation without a race factor to calculate the eGFR results. Performed By: #### M G, RFP, BMP, GFR #### [address] [address] .NEUABSon 03-23-2025 Neutrophil, Absolute 4.6 10 3/mcL Normal 2.3-8.1 [facility] Comment on above: Performed By: #### M G, RFP, BMP, GFR #### [address] [address] BFPRon 03-23-2025 Body Fluid Path Review Normal [facility] MAIN Comment on above: Order Comment: Added by Discern Result Comment: Nega tive for malignant cells. (This evaluation is based on a screening review of one cytospin slide prepared primarily for differential cell count; if clinical index of suspicion is high, Cytology evaluation is recommended, as clinically indicated) Electronically signed by: CHRISTIANO LIU 03.23.2025 10:21 EDT Performed By: #### C BC, GFR, MORPH, RFP, DIFF #### [address] [address] CBCon 03-23-2025 Erythrocyte distribution width (RBC) [Ratio] 27.5 % High 11.5-15.5 [facility] Comment on above: Performed By: #### M G, RFP, BMP, GFR #### [place] [id number] Hematocrit (Bld) [Volume fraction] 25.6 % Low 34.0-46.0 [facility] Comment on above: Performed By: #### M G, RFP, BMP, GFR #### [place] [id number] Hgb 8.1 G/dL Low 12.0-16.0 [facility] Comment on above: Performed By: #### M G, RFP, BMP, GFR #### [place] [id number] MCH (RBC) [Entitic mass] 23.0 pg Low 27.0-33.0 [facility] Comment on above: Performed By: #### M G, RFP, BMP, GFR #### [place] [address] MCHC 31.7 G/dL Low 32.0-36.0 [facility] Comment on above: Performed By: #### M G, RFP, BMP, GFR #### [place] [id number] MCV (RBC) [Entitic vol] 72.5 fL Low 80.0-99.0 [facility] MAIN Comment on above: Performed By: #### M G, RFP, BMP, GFR #### [address] [address] Platelet 226 10 3/mcL Normal 150-450 [facility] MA[facility] Comment on above: Performed By: #### M G, RFP, BMP, GFR #### [place] [id number] Platelet mean volume (Bld) [Entitic vol] 8.1 fL Normal 6.6-10.5 [facility] Comment on above: Performed By: #### M G, RFP, BMP, GFR #### [place] [address] RBC 3.54 10 6/mcL Low 4.10-5.30 [facility] Comment on above: Performed By: #### M G, RFP, BMP, GFR #### [place] [address] WBC 6.1 10 3/mcL Normal 4.5-10.8 [facility] MAIN Comment on above: Performed By: #### M G, RFP, BMP, GFR #### [place] [address] Non-Flow Machine Operator Cytology Reporton Non-Flow Machine Operator Cytology Report . Pathology Reports Accession: Collected Date/Time: Received Date/Time: Pathologist: [id number] 03/22/2025 09:55 EDT 03/22/2025 14:12 EDT CHRISTIANO LIU MD Non-Flow Machine Operator Cytology Report CLINICAL INFORMATION: effusion DIAGNOSTIC CATEGORY: NEGATIVE FOR MALIGNANCY. SPECIMEN: Left pleural fluid GROSS DESCRIPTION: # of Blocks: 1 # of Monolayers: 1 Volume (ml) 600 Color: fresh cloudy orange Verified by Pathology Report verified by [facility] Screened by: HARJIT FOWLER Electronically signed by CHRISTIANO LIU Sign-Out Date: 03/23/2025 10:21 Performing Lab: [address] Pathology Dept Disclaimer If ancillary studies were utilized, the following Laboratory Developed Test (LDT) disclaimer will apply: Under CLIA requirements, [facility] is qualified to perform high complexity testing. For all ancillary stains, positive and negative controls stain appropriately. Performance characteristics of immunohistochemical and chromogenic in-situ hybridization tests have been determined by [facility]. These tests are used for clinical purposes, They should not be regarded as investigational or for research. Normal [facility] RFPon 03-23-2025 Albumin Level 2.1 G/dL Low 3.2-4.8 [facility] MAIN Comment on above: Performed By: #### M G, RFP, BMP, GFR #### [address] [address] BUN/Creatinine Ratio 22.8 ratio High 10.0-22.0 [facility] MAIN Comment on above: Performed By: #### M G, RFP, BMP, GFR #### [address] [address] Calcium [Mass/Vol] 8.4 mg/dL Low 8.7-10.4 [facility] MAIN Comment on above: Performed By: #### M G, RFP, BMP, GFR #### [address] [address] Chloride [Moles/Vol] 96 mmol/L Low 98-110 [facility] MAIN Comment on above: Performed By: #### Iain Mckeon, RFP, BMP, GFR #### [address] [address] CO2 [Moles/Vol] 24 mmol/L Normal 22-32 [facility] MAIN Comment on above: Performed By: #### Iain Mckeon, RFP, BMP, GFR #### [address] [address] Creatinine [Mass/Vol] 2.89 mg/dL High 0.50-1.20 [facility] MAIN Comment on above: Result Comment: Test ing performed on [employer] analyzer using enzymatic creatinine methodology. Performed By: #### M G, RFP, BMP, GFR #### [address] [address] Electrolyte Balance 9.0 mEq/L Normal 4.0-15.0 [facility] MAIN Comment on above: Performed By: #### M G, RFP, BMP, GFR #### [address] [address] Glucose [Mass/Vol] 146 mg/dL High 82-115 [facility] MAIN Comment on above: Performed By: #### M G, RFP, BMP, GFR #### [address] [address] Phosphate [Mass/Vol] 7.4 mg/dL High 2.4-5.1 [facility] MAIN Comment on above: Performed By: #### M G, RFP, BMP, GFR #### [address] [address] Potassium [Moles/Vol] 4.7 mmol/L Normal 3.5-5.0 [facility] MAIN Comment on above: Performed By: #### M G, RFP, BMP, GFR #### [address] [address] Sodium [Moles/Vol] 129 mmol/L Low 136-145 [facility] MAIN Comment on above: Performed By: #### M G, RFP, BMP, GFR #### [address] [address] Urea nitrogen [Mass/Vol] 66.0 mg/dL High 8.0-22.0 [facility] Comment on above: Performed By: #### M G, RFP, BMP, GFR #### [address] [address] BFCTon 03-22-2025 Cells Counted BF 100 [facility] MAIN Comment on above: Performed By: #### C BC, GFR, MORPH, RFP, DIFF #### [address] [address] Lymphocytes/100 WBC (Bld) 31 % [facility] MAIN Comment on above: Performed By: #### C BC, GFR, MORPH, RFP, DIFF #### [address] [address] Mesothelial Cell % BF 34 % Normal [facility] MAIN Comment on above: Performed By: #### C BC, GFR, MORPH, RFP, DIFF #### [address] [address] Mononuclear cell % BF 5 % Normal [facility] MAIN Comment on above: Performed By: #### C BC, GFR, MORPH, RFP, DIFF #### [address] [address] Neutrophils/100 WBC (Bld) 30 % Normal [facility]IN Comment on above: Performed By: #### C BC, GFR, MORPH, RFP, DIFF #### [address] [address] Body Fluid Source Pleural fluid Normal [facility] MAIN Comment on above: Result Comment: Refe rence ranges have not been established for this body fluid. The test results must be integrated into the clinical context for interpretation. Performed By: #### C BC, GFR, MORPH, RFP, DIFF #### [place] [address] Total Nucleated Cells 820 /mm3 Normal [facility] MAIN Comment on above: Performed By: #### C BC, GFR, MORPH, RFP, DIFF #### [place] [address] GLUBFon 03-22-2025 Glucose BF 113.0 mg/dL Normal [facility]IN Comment on above: Performed By: #### C BC, GFR, MORPH, RFP, DIFF #### [place] [address] Glucose Body Fluid Spec Type Pleural fluid Normal [facility] MAIN Comment on above: Result Comment: The reference interval(s) and other method performance specifications have not been established for this body fluid. The test result must be integrated into the clinical content for interpretation. Performed By: #### C BC, GFR, MORPH, RFP, DIFF #### [place] [address] LDBF 03-22-2025 LDH BF 71.0 U/L [facility] MAIN Comment on above: Performed By: #### C BC, GFR, MORPH, RFP, DIFF #### [place] [address] LDH Body Fluid Spec Type Pleural fluid [facility] MAIN Comment on above: Result Comment: The reference interval(s) and other method performance specifications have not been established for this body fluid. The test result must be integrated into the clinical content for interpretation. . Performed By: #### C BC, GFR, MORPH, RFP, DIFF #### [place] [address] PHBFon 03-22-2025 pH BF 7.4 Normal [facility] MAIN Comment on above: Performed By: #### G FR, RFP #### [place] [address] pH BF Spec Type Pleural fluid Normal [facility] MAIN Comment on above: Result Comment: LEFT The reference interval(s) and other method performance specifications have not been established for this body fluid. The test result must be integrated into the clinical content for interpretation. Performed By: #### G FR, RFP #### [place] [id number] PROBFon 03-22-2025 Protein BF <2.0 [facility] MAIN Comment on above: Performed By: #### C BC, GFR, MORPH, RFP, DIFF #### [place] [address] Protein BF Type Pleural fluid [facility] MAIN Comment on above: Result Comment: The reference interval(s) and other method performance specifications have not been established for this body fluid. The test result must be integrated into the clinical content for interpretation. Performed By: #### C BC, GFR, MORPH, RFP, DIFF #### [place] [address] XR CHEST 1 VIEWon 03-22-2025 XR CHEST 1 VIEW ORIGINAL EXAMINATION: ONE XRAY VIEW OF THE CHEST 03/22/2025 10:12 am COMPARISON: Yesterday HISTORY: ORDERING SYSTEM PROVIDED HISTORY: Reason for Exam: s/p LEFT thoracentesis FINDINGS: Improved left pleural effusion. No pneumothorax. Small-moderate right pleural effusion persist. Dialysis catheter and tracheostomy unchanged. IMPRESSION: Improved left pleural effusion, no pneumothorax. Interpreted by: Carlos Ac Preliminary Report By: Carlos Ac Electronically signed By Carlos Ac Dictated Date: 03/22/2025 10:21:34 AM Prelim Date: 03/22/2025 10:22:24 AM Sign Date: 03/22/2025 10:22:24 AM Ordering Provider: CHA YUSUF Interpreted by: Carlos Ac Preliminary Report By: Carlos Ac Electronically signed By Carlos Ac Dictated Date: 03/22/2025 10:21:34 AM Prelim Date: 03/22/2025 10:22:24 AM Sign Date: 03/22/2025 10:22:24 AM Ordering Provider: CHA YUSUF [facility] MAIN .GFRon 03-21-2025 Estimated Glomerular Filtration Rate 15 ml/min/1.73sqm [facility] MAIN Comment on above: Result Comment: Stages of Chronic Kidney Disease (CKD) Stage Description eGFR(ml/min/1.73 sq.m.) CKD 1 Normal kidney function or >=90 normal kindney function with possible kidney damage (ex. Proteinuria) CKD 2 Kidney damage with mild loss 60-89 of kidney function CKD 3a Mild to moderate loss of kidney 45-59 function CKD 3b Moderate to severe loss of 30-44 of kindey function CKD 4 Severe loss of kidney function 15-29 CKD 5 Kidney failure <15 Note: (go live 2024) the eGFR calculation was updated to the 2020 CKD-EPI creatinine equation without a race factor to calculate the eGFR results. Performed By: #### M G, RFP, BMP, GFR #### [address] [address] [facility] Albumin Level 2.1 G/dL Low 3.2-4.8 [facility] MAIN Comment on above: Performed By: #### M G, RFP, BMP, GFR #### [address] [address] BUN/Creatinine Ratio 26.9 ratio High 10.0-22.0 [facility] MAIN Comment on above: Performed By: #### M G, RFP, BMP, GFR #### [address] [address] Calcium [Mass/Vol] 8.2 mg/dL Low 8.7-10.4 [facility] MAIN Comment on above: Performed By: #### M G, RFP, BMP, GFR #### [address] [address] Chloride [Moles/Vol] 92 mmol/L Low 98-110 [facility] MAIN Comment on above: Performed By: #### M G, RFP, BMP, GFR #### [address] [address] CO2 [Moles/Vol] 21 mmol/L Low 22-32 [facility] MAIN Comment on above: Performed By: #### M G, RFP, BMP, GFR #### [address] [address] Creatinine [Mass/Vol] 3.08 mg/dL High 0.50-1.20 [facility] MAIN Comment on above: Result Comment: Test ing performed on [employer] analyzer using enzymatic creatinine methodology. Performed By: #### M G, RFP, BMP, GFR #### [address] [address] Electrolyte Balance 17.0 mEq/L High 4.0-15.0 [facility] MAIN Comment on above: Performed By: #### M G, RFP, BMP, GFR #### [address] [address] Glucose [Mass/Vol] 201 mg/dL High 82-115 [facility] MAIN Comment on above: Performed By: #### M G, RFP, BMP, GFR #### [address] [address] Phosphate [Mass/Vol] 6.9 mg/dL High 2.4-5.1 [facility] MA[facility] Comment on above: Performed By: #### M G, RFP, BMP, GFR #### [address] [address] Potassium [Moles/Vol] 5.0 mmol/L Normal 3.5-5.0 [facility] MAIN Comment on above: Performed By: #### M G, RFP, BMP, GFR #### [address] [address] Sodium [Moles/Vol] 130 mmol/L Low 136-145 [facility] MAIN Comment on above: Performed By: #### M G, RFP, BMP, GFR #### [address] [address] Urea nitrogen [Mass/Vol] 83.0 mg/dL High 8.0-22.0 [facility] MA[facility] Comment on above: Performed By: #### M G, RFP, BMP, GFR #### [address] [address] XR CHEST 1 VIEWon 03-21-2025 XR CHEST 1 VIEW ORIGINAL EXAMINATION: ONE XRAY VIEW OF THE CHEST03/21/2025 10:24 am COMPARISON: None. HISTORY: ORDERING SYSTEM PROVIDED HISTORY: Reason for Exam: s/p RIGHT thoracentesis FINDINGS: The exam is rotated. Cardiomegaly and atherosclerosis noted. Tracheostomy tube projects at the thoracic inlet. Right internal jugular central vascular catheter terminates at the right atrial level. Vascular congestion seen. 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 No pneumothorax visible. Small pleural effusions not excluded. Bony detail is limited. No aggressive osseous lesions identified. IMPRESSION: Widespread mixed interstitial and alveolar disease, overall slightly improved. Support devices, as above Interpreted by: Brayden Lamb MD Preliminary Report By: Brayden Lamb MD Electronically signed By Brayden Lamb MD Dictated Date: 03/21/2025 10:32:26 AM Prelim Date: 03/21/2025 10:34:28 AM Sign Date: 03/21/2025 10:34:28 AM Ordering Provider: CHA YUSUF Normal [facility] .Manual Diffon 03-20-2025 Bands 2.0 % Normal 0.0-5.0 [facility] Comment on above: Performed By: #### C BC, GFR, MORPH, RFP, DIFF #### [address] [address] Basophil %, Manual 0.0 % Normal 0.0-2.5 [facility] Comment on above: Performed By: #### C BC, GFR, MORPH, RFP, DIFF #### [address] [address] Basophil, Abs Manual 0.0 10 3/mcL Normal 0.0-0.3 [facility] Comment on above: Performed By: #### C BC, GFR, MORPH, RFP, DIFF #### [address] [address] Eosinophil %, Manual 3.0 % Normal 0.0-6.0 [facility] Comment on above: Performed By: #### C BC, GFR, MORPH, RFP, DIFF #### [address] [address] Eosinophil, Abs Manual 0.2 10 3/mcL Normal 0.0-0.7 [facility] Comment on above: Performed By: #### C BC, GFR, MORPH, RFP, DIFF #### [address] [address] Lymphocyte %, Manual 10.0 % Low 20.0-40.0 [facility] Comment on above: Performed By: #### C BC, GFR, MORPH, RFP, DIFF #### [address] [address] Lymphocyte, Abs Manual 0.7 10 3/mcL Low 0.9-4.3 [facility] Comment on above: Performed By: #### C BC, GFR, MORPH, RFP, DIFF #### [address] [address] Monocyte %, Manual 5.0 % Normal 2.0-13.0 [facility] Comment on above: Performed By: #### C BC, GFR, MORPH, RFP, DIFF #### [address] [address] Monocyte, Abs Manual 0.3 10 3/mcL Normal 0.1-1.4 [facility] Comment on above: Performed By: #### C BC, GFR, MORPH, RFP, DIFF #### [place] [id number] Neutrophil %, Manual 80.0 % High 50.0-75.0 [facility] Comment on above: Performed By: #### C BC, GFR, MORPH, RFP, DIFF #### [address] [address] Neutrophil, Abs Manual 5.1 10 3/mcL Normal 2.3-8.1 [facility] Comment on above: Performed By: #### C BC, GFR, MORPH, RFP, DIFF #### [place] [id number] Nucleated RBC 0.0 /100 WBC Normal [facility] Comment on above: Performed By: #### C BC, GFR, MORPH, RFP, DIFF #### [address] [address] .Morphon 03-20-2025 Anisocytosis Ql (Bld) 2+ Normal [facility] Comment on above: Performed By: #### C BC, GFR, MORPH, RFP, DIFF #### [place] [id number] Microcytosis 2+ Normal [facility] Comment on above: Performed By: #### C BC, GFR, MORPH, RFP, DIFF #### [place] [address] Ovalocytes 2+ Normal [facility] Comment on above: Performed By: #### C BC, GFR, MORPH, RFP, DIFF #### [place] [address] Platelet Clumps Few Normal [facility] Comment on above: Performed By: #### C BC, GFR, MORPH, RFP, DIFF #### [place] [address] Platelet Estimate Normal [facility] MAIN Comment on above: Performed By: #### C BC, GFR, MORPH, RFP, DIFF #### [place] [address] Poik 1+ [facility] MAIN Comment on above: Performed By: #### C BC, GFR, MORPH, RFP, DIFF #### [place] [address] Polychrom 1+ [facility] MAIN Comment on above: Performed By: #### C BC, GFR, MORPH, RFP, DIFF #### [place] [address] CBCon 03-20-2025 Platelet 174 10 3/mcL Normal 150-450 [facility] Comment on above: Order Comment: Speci men clotted. Called Crissy from venipuncture for recollect. 2025 05:24:36 EDT Performed By: #### C BC, GFR, MORPH, RFP, DIFF #### [place] [address] Platelet mean volume (Bld) [Entitic vol] 9.4 fL Normal 6.6-10.5 [facility] Comment on above: Order Comment: Speci men clotted. Called Crissy from venipuncture for recollect. 2025 05:24:36 EDT Performed By: #### C BC, GFR, MORPH, RFP, DIFF #### [place] [address] .GFRon 2025 Estimated Glomerular Filtration Rate 15 ml/min/1.73sqm Normal [facility] Comment on above: Result Comment: Stages of Chronic Kidney Disease (CKD) Stage Description eGFR(ml/min/1.73 sq.m.) CKD 1 Normal kidney function or >=90 normal kindney function with possible kidney damage (ex. Proteinuria) CKD 2 Kidney damage with mild loss 60-89 of kidney function CKD 3a Mild to moderate loss of kidney 45-59 function CKD 3b Moderate to severe loss of 30-44 of kindey function CKD 4 Severe loss of kidney function 15-29 CKD 5 Kidney failure <15 Note: (go live 2024) the eGFR calculation was updated to the 2020 CKD-EPI creatinine equation without a race factor to calculate the eGFR results. Performed By: #### C BC, GFR, MORPH, RFP, DIFF #### [place] [address] CBCon 2025 Erythrocyte distribution width (RBC) [Ratio] 26.1 % High 11.5-15.5 [facility] Comment on above: Order Comment: Speci men clotted. Called Crissy from venipuncture for recollect. 2025 05:24:36 EDT Performed By: #### C BC, GFR, MORPH, RFP, DIFF #### [place] [address] Hematocrit (Bld) [Volume fraction] 27.6 % Low 34.0-46.0 [facility] Comment on above: Order Comment: Speci men clotted. Called Crissy from venipuncture for recollect. 2025 05:24:36 EDT Performed By: #### C BC, GFR, MORPH, RFP, DIFF #### [place] [address] Hgb 8.7 G/dL Low 12.0-16.0 [facility] Comment on above: Order Comment: Speci men clotted. Called Crissy from venipuncture for recollect. 2025 05:24:36 EDT Performed By: #### C BC, GFR, MORPH, RFP, DIFF #### [place] [id number] MCH (RBC) [Entitic mass] 22.4 pg Low 27.0-33.0 [facility] Comment on above: Order Comment: Speci men clotted. Called Crissy from venipuncture for recollect. 2025 05:24:36 EDT Performed By: #### C BC, GFR, MORPH, RFP, DIFF #### [place] [address] MCHC 31.4 G/dL Low 32.0-36.0 [facility] Comment on above: Order Comment: Speci men clotted. Called Crissy from venipuncture for recollect. 2025 05:24:36 EDT Performed By: #### C BC, GFR, MORPH, RFP, DIFF #### [place] [address] MCV (RBC) [Entitic vol] 71.3 fL Low 80.0-99.0 [facility] MAIN Comment on above: Order Comment: Speci men clotted. Called Crissy from venipuncture for recollect. 2025 05:24:36 EDT Performed By: #### C BC, GFR, MORPH, RFP, DIFF #### [place] [address] RBC 3.87 10 6/mcL Low 4.10-5.30 [facility] Comment on above: Order Comment: Speci men clotted. Called Crissy from venipuncture for recollect. 2025 05:24:36 EDT Performed By: #### C BC, GFR, MORPH, RFP, DIFF #### [place] [address] WBC 6.4 10 3/mcL Normal 4.5-10.8 [facility] Comment on above: Order Comment: Speci men clotted. Called Crissy from venipuncture for recollect. 2025 05:24:36 EDT Performed By: #### C BC, GFR, MORPH, RFP, DIFF #### [place] [address] RFPon 2025 Albumin Level 2.2 G/dL Low 3.2-4.8 [facility] Comment on above: Performed By: #### C BC, GFR, MORPH, RFP, DIFF #### [address] [address] BUN/Creatinine Ratio 30.0 ratio High 10.0-22.0 [facility] Comment on above: Performed By: #### C BC, GFR, MORPH, RFP, DIFF #### [address] [address] Calcium [Mass/Vol] 8.3 mg/dL Low 8.7-10.4 [facility] Comment on above: Performed By: #### C BC, GFR, MORPH, RFP, DIFF #### [address] [address] Chloride [Moles/Vol] 93 mmol/L Low 98-110 [facility] Comment on above: Performed By: #### C BC, GFR, MORPH, RFP, DIFF #### [place] [id number] CO2 [Moles/Vol] 21 mmol/L Low 22-32 [facility] Comment on above: Performed By: #### C BC, GFR, MORPH, RFP, DIFF #### [address] [address] Creatinine [Mass/Vol] 3.03 mg/dL High 0.50-1.20 [facility] MA[facility] Comment on above: Result Comment: Test ing performed on [employer] analyzer using enzymatic creatinine methodology. Performed By: #### C BC, GFR, MORPH, RFP, DIFF #### [address] [address] Electrolyte Balance 14.0 mEq/L Normal 4.0-15.0 [facility] MAIN Comment on above: Performed By: #### C BC, GFR, MORPH, RFP, DIFF #### [address] [address] Glucose [Mass/Vol] 185 mg/dL High 82-115 [facility] MA[facility] Comment on above: Performed By: #### C BC, GFR, MORPH, RFP, DIFF #### [address] [address] Phosphate [Mass/Vol] 6.6 mg/dL High 2.4-5.1 [facility] Comment on above: Performed By: #### C BC, GFR, MORPH, RFP, DIFF #### [facility] [address] [place] [address] Potassium [Moles/Vol] 4.5 mmol/L Normal 3.5-5.0 [facility] MAIN Comment on above: Performed By: #### C BC, GFR, MORPH, RFP, DIFF #### [address] [address] Sodium [Moles/Vol] 128 mmol/L Low 136-145 [facility] MA[facility] Comment on above: Performed By: #### C BC, GFR, MORPH, RFP, DIFF #### [address] [address] Urea nitrogen [Mass/Vol] 91.0 mg/dL High 8.0-22.0 [facility] Comment on above: Performed By: #### C BC, GFR, MORPH, RFP, DIFF #### [address] [address] XR CHEST 1 VIEWon 2025 XR CHEST 1 VIEW ORIGINAL EXAMINATION: ONE XRAY VIEW OF THE CHEST 2025 9:51 am COMPARISON: 03/14/2025 HISTORY: ORDERING SYSTEM PROVIDED HISTORY: Reason for Exam: sob FINDINGS: Tracheostomy. Stable right double lumen hemodialysis catheter. Cardiomediastinal silhouette is obscured. Diffuse interstitial pattern and peribronchial thickening not significantly changed. Bibasilar pleural effusions right more than left. No pneumothorax. No acute osseous abnormality. IMPRESSION: 1. Stable diffuse interstitial pattern and peribronchial thickening reflecting moderate pulmonary edema. 2. Bibasilar pleural effusions right more than left. Interpreted by: Toyin Rogers Preliminary Report By: Toyin Rogers Electronically signed By Toyin Rogers Dictated Date: 2025 9:56:46 AM Prelim Date: 2025 9:57:53 AM Sign Date: 2025 9:57:53 AM Ordering Provider: JANAE ZARCO [facility] MAIN .GFRon 03-17-2025 Estimated Glomerular Filtration Rate 31 ml/min/1.73sqm [facility] MAIN Comment on above: Result Comment: Stages of Chronic Kidney Disease (CKD) Stage Description eGFR(ml/min/1.73 sq.m.) CKD 1 Normal kidney function or >=90 normal kindney function with possible kidney damage (ex. Proteinuria) CKD 2 Kidney damage with mild loss 60-89 of kidney function CKD 3a Mild to moderate loss of kidney 45-59 function CKD 3b Moderate to severe loss of 30-44 of kindey function CKD 4 Severe loss of kidney function 15-29 CKD 5 Kidney failure <15 Note: (go live 2024) the eGFR calculation was updated to the 2020 CKD-EPI creatinine equation without a race factor to calculate the eGFR results. Performed By: #### M G, RFP, BMP, GFR #### [address] [address] [facility] BUN/Creatinine Ratio 46.8 ratio High 10.0-22.0 [facility] Comment on above: Performed By: #### M G, RFP, BMP, GFR #### [address] [address] Calcium [Mass/Vol] 7.7 mg/dL Low 8.7-10.4 [facility] Comment on above: Performed By: #### M G, RFP, BMP, GFR #### [address] [address] Chloride [Moles/Vol] 102 mmol/L Normal 98-110 [facility] Comment on above: Performed By: #### M G, RFP, BMP, GFR #### [address] [address] CO2 [Moles/Vol] 26 mmol/L Normal 22-32 [facility] Comment on above: Performed By: #### M G, RFP, BMP, GFR #### [address] [address] Creatinine [Mass/Vol] 1.71 mg/dL High 0.50-1.20 [facility] MAIN Comment on above: Result Comment: Test ing performed on [employer] analyzer using enzymatic creatinine methodology. Performed By: #### M G, RFP, BMP, GFR #### [address] [address] Electrolyte Balance 9.0 mEq/L Normal 4.0-15.0 [facility] MA[facility] Comment on above: Performed By: #### M G, RFP, BMP, GFR #### [place] [id number] Glucose [Mass/Vol] 231 mg/dL High 82-115 [facility] MA[facility] Comment on above: Performed By: #### M G, RFP, BMP, GFR #### [place] [id number] Potassium [Moles/Vol] 3.8 mmol/L Normal 3.5-5.0 [facility] Comment on above: Performed By: #### M G, RFP, BMP, GFR #### [place] [id number] Sodium [Moles/Vol] 137 mmol/L Normal 136-145 [facility] Comment on above: Performed By: #### M G, RFP, BMP, GFR #### [place] [id number] Urea nitrogen [Mass/Vol] 80.0 mg/dL High 8.0-22.0 [facility] Comment on above: Performed By: #### M G, RFP, BMP, GFR #### [place] [address] HBSABon 03-17-2025 Hep B Surf Ab <3.1 Low >=10.0 [facility] Comment on above: Result Comment: 0 to < 10.0 mIU/mL Nonreactive Patient is considered not to have protective immunity to HBV infection >/= 10.0 mIU/mL Reactive Patient is considered to have protective immunity to HBV infection. This assay is traceable to the World Health Organization (WHO) Hepatitis B Immunoglobulin 1st International Reference Preparation (1976). The accepted criteria for immunity to HBV is anti-HBs activity >/= 10.0 mIU/mL, as defined by the WHO International Reference Preparation. Performed By: #### C BC, GFR, MORPH, RFP, DIFF #### [place] [id number] HBSAGon 03-17-2025 Hep B Surf Ag Non-Reactive Normal Non-Reactive [facility] Comment on above: Performed By: #### C BC, GFR, MORPH, RFP, DIFF #### [address] [address] .GFRon 03-16-2025 Estimated Glomerular Filtration Rate 27 ml/min/1.73sqm Normal [facility] MA[facility] Comment on above: Result Comment: Stages of Chronic Kidney Disease (CKD) Stage Description eGFR(ml/min/1.73 sq.m.) CKD 1 Normal kidney function or >=90 normal kindney function with possible kidney damage (ex. Proteinuria) CKD 2 Kidney damage with mild loss 60-89 of kidney function CKD 3a Mild to moderate loss of kidney 45-59 function CKD 3b Moderate to severe loss of 30-44 of kindey function CKD 4 Severe loss of kidney function 15-29 CKD 5 Kidney failure <15 Note: (go live 2024) the eGFR calculation was updated to the 2020 CKD-EPI creatinine equation without a race factor to calculate the eGFR results. Performed By: #### M G, RFP, BMP, GFR #### [address] [address] RFPon 03-16-2025 Albumin Level 2.4 G/dL Low 3.2-4.8 [facility] MAIN Comment on above: Performed By: #### M G, RFP, BMP, GFR #### [address] [address] BUN/Creatinine Ratio 57.0 ratio High 10.0-22.0 [facility] MAIN Comment on above: Performed By: #### M G, RFP, BMP, GFR #### [address] [address] Calcium [Mass/Vol] 8.7 mg/dL Normal 8.7-10.4 [facility] MAIN Comment on above: Performed By: #### M G, RFP, BMP, GFR #### [address] [address] Chloride [Moles/Vol] 108 mmol/L Normal 98-110 [facility] MAIN Comment on above: Performed By: #### M G, RFP, BMP, GFR #### [address] [address] CO2 [Moles/Vol] 24 mmol/L Normal 22-32 [facility] MAIN Comment on above: Performed By: #### M G, RFP, BMP, GFR #### [address] [address] Creatinine [Mass/Vol] 1.93 mg/dL High 0.50-1.20 [facility] MAIN Comment on above: Result Comment: Test ing performed on [employer] analyzer using enzymatic creatinine methodology. Performed By: #### M G, RFP, BMP, GFR #### [address] [address] Electrolyte Balance 8.0 mEq/L Normal 4.0-15.0 [facility] MAIN Comment on above: Performed By: #### M G, RFP, BMP, GFR #### [address] [address] Glucose [Mass/Vol] 323 mg/dL High 82-115 [facility] MAIN Comment on above: Performed By: #### M G, RFP, BMP, GFR #### [address] [address] Phosphate [Mass/Vol] 5.2 mg/dL High 2.4-5.1 [facility] Comment on above: Performed By: #### M G, RFP, BMP, GFR #### [address] [address] Potassium [Moles/Vol] 5.0 mmol/L Normal 3.5-5.0 [facility] MAIN Comment on above: Performed By: #### M G, RFP, BMP, GFR #### [address] [address] Sodium [Moles/Vol] 140 mmol/L Normal 136-145 [facility] MA[facility] Comment on above: Performed By: #### M G, RFP, BMP, GFR #### [address] [address] Urea nitrogen [Mass/Vol] 110.0 mg/dL High 8.0-22.0 [facility] Comment on above: Performed By: #### M G, RFP, BMP, GFR #### [address] [address] MGon 03-15-2025 Magnesium [Mass/Vol] 2.1 mg/dL Normal 1.6-2.4 [facility] MAIN Comment on above: Performed By: #### C BC, GFR, MORPH, RFP, DIFF #### [address] [address] .Auto Diffon 03-14-2025 Basophil, Absolute 0.1 10 3/mcL Normal 0.0-0.3 [facility] MAIN Comment on above: Performed By: #### M G, RFP, BMP, GFR #### [address] [address] Basophils/100 WBC (Bld) 0.6 % Normal 0.0-2.5 [facility] MAIN Comment on above: Performed By: #### M G, RFP, BMP, GFR #### [address] [address] Eosinophil, Absolute 0.0 10 3/mcL Normal 0.0-0.7 [facility] MAIN Comment on above: Performed By: #### M G, RFP, BMP, GFR #### [address] [address] Eosinophils/100 WBC (Bld) 0.4 % Normal 0.0-6.0 [facility] Comment on above: Performed By: #### M G, RFP, BMP, GFR #### [address] [address] Lymphocyte, Absolute 0.3 10 3/mcL Low 0.9-4.3 [facility] MAIN Comment on above: Performed By: #### M G, RFP, BMP, GFR #### [address] [address] Lymphocytes/100 WBC (Bld) 3.7 % Low 20.0-40.0 [facility] Comment on above: Performed By: #### M G, RFP, BMP, GFR #### [address] [address] Monocyte, Absolute 0.5 10 3/mcL Normal 0.1-1.4 [facility] Comment on above: Performed By: #### M G, RFP, BMP, GFR #### [address] [address] Monocytes/100 WBC (Bld) 5.7 % Normal 2.0-13.0 [facility] MAIN Comment on above: Performed By: #### M G, RFP, BMP, GFR #### [address] [address] Neutrophils/100 WBC (Bld) 89.6 % High 50.0-75.0 [facility] MAIN Comment on above: Performed By: #### M G, RFP, BMP, GFR #### [address] [address] .GFRon 03-14-2025 Estimated Glomerular Filtration Rate 34 ml/min/1.73sqm [facility] MAIN Comment on above: Result Comment: Stages of Chronic Kidney Disease (CKD) Stage Description eGFR(ml/min/1.73 sq.m.) CKD 1 Normal kidney function or >=90 normal kindney function with possible kidney damage (ex. Proteinuria) CKD 2 Kidney damage with mild loss 60-89 of kidney function CKD 3a Mild to moderate loss of kidney 45-59 function CKD 3b Moderate to severe loss of 30-44 of kindey function CKD 4 Severe loss of kidney function 15-29 CKD 5 Kidney failure <15 Note: (go live 2024) the eGFR calculation was updated to the 2020 CKD-EPI creatinine equation without a race factor to calculate the eGFR results. Performed By: #### M G, RFP, BMP, GFR #### [address] [address] .Morphon 03-14-2025 Anisocytosis Ql (Bld) 2+ Normal [facility] MAIN Comment on above: Performed By: #### M G, RFP, BMP, GFR #### [address] [address] Microcytosis 2+ Normal [facility] MAIN Comment on above: Performed By: #### M G, RFP, BMP, GFR #### [address] [address] Ovalocytes 1+ Normal [facility] MAIN Comment on above: Performed By: #### M G, RFP, BMP, GFR #### [place] [address] Platelet Estimate Normal Normal [facility] MAIN Comment on above: Performed By: #### M G, RFP, BMP, GFR #### [place] [address] Poik 1+ Normal [facility] MAIN Comment on above: Performed By: #### M G, RFP, BMP, GFR #### [address] [address] .NEUABSon 03-14-2025 Neutrophil, Absolute 7.4 10 3/mcL Normal 2.3-8.1 [facility] MAIN Comment on above: Performed By: #### M G, RFP, BMP, GFR #### [place] [address] CBCon 03-14-2025 Platelet 200 10 3/mcL Normal 150-450 [facility] MAIN Comment on above: Performed By: #### M G, RFP, BMP, GFR #### [place] [address] Platelet mean volume (Bld) [Entitic vol] 9.5 fL Normal 6.6-10.5 [facility] MAIN Comment on above: Performed By: #### M G, RFP, BMP, GFR #### [place] [address] Erythrocyte distribution width (RBC) [Ratio] 25.5 % High 11.5-15.5 [facility] MAIN Comment on above: Performed By: #### M G, RFP, BMP, GFR #### [place] [address] Hematocrit (Bld) [Volume fraction] 31.7 % Low 34.0-46.0 [facility] MA[facility] Comment on above: Performed By: #### M G, RFP, BMP, GFR #### [place] [address] Hgb 9.8 G/dL Low 12.0-16.0 [facility] MAIN Comment on above: Performed By: #### M G, RFP, BMP, GFR #### [address] [address] MCH (RBC) [Entitic mass] 22.8 pg Low 27.0-33.0 [facility] MAIN Comment on above: Performed By: #### M G, RFP, BMP, GFR #### [place] [address] MCHC 31.0 G/dL Low 32.0-36.0 [facility] MAIN Comment on above: Performed By: #### M G, RFP, BMP, GFR #### [place] [address] MCV (RBC) [Entitic vol] 73.7 fL Low 80.0-99.0 [facility] MAIN Comment on above: Performed By: #### M G, RFP, BMP, GFR #### [place] [address] RBC 4.31 10 6/mcL Normal 4.10-5.30 [facility] MAIN Comment on above: Performed By: #### M G, RFP, BMP, GFR #### [place] [address] WBC 8.3 10 3/mcL Normal 4.5-10.8 [facility] MAIN Comment on above: Performed By: #### M G, RFP, BMP, GFR #### [address] 03-14-2025 Albumin Level 2.5 G/dL Low 3.2-4.8 [facility] MAIN Comment on above: Performed By: #### M G, RFP, BMP, GFR #### [place] [address] BUN/Creatinine Ratio 52.9 ratio High 10.0-22.0 [facility] MAIN Comment on above: Performed By: #### M G, RFP, BMP, GFR #### [place] [address] Calcium [Mass/Vol] 8.5 mg/dL Low 8.7-10.4 [facility] MAIN Comment on above: Performed By: #### M G, RFP, BMP, GFR #### [place] [address] Chloride [Moles/Vol] 113 mmol/L High 98-110 [facility] MAIN Comment on above: Performed By: #### M G, RFP, BMP, GFR #### [address] [address] CO2 [Moles/Vol] 22 mmol/L Normal 22-32 [facility] MAIN Comment on above: Performed By: #### M G, RFP, BMP, GFR #### [address] [address] Creatinine [Mass/Vol] 1.57 mg/dL High 0.50-1.20 [facility] MAIN Comment on above: Result Comment: Test ing performed on [employer] analyzer using enzymatic creatinine methodology. Performed By: #### M Linda, RFP, BMP, GFR #### [address] [address] Electrolyte Balance 12.0 mEq/L Normal 4.0-15.0 [facility] MAIN Comment on above: Performed By: #### Iain G, RFP, BMP, GFR #### [address] [address] Glucose [Mass/Vol] 346 mg/dL High 82-115 [facility] MAIN Comment on above: Performed By: #### M G, RFP, BMP, GFR #### [address] [address] Phosphate [Mass/Vol] 2.8 mg/dL Normal 2.4-5.1 [facility] MAIN Comment on above: Performed By: #### M G, RFP, BMP, GFR #### [address] [address] Potassium [Moles/Vol] 4.2 mmol/L Normal 3.5-5.0 [facility] MAIN Comment on above: Performed By: #### M G, RFP, BMP, GFR #### [address] [address] Sodium [Moles/Vol] 147 mmol/L High 136-145 [facility] MAIN Comment on above: Performed By: #### M G, RFP, BMP, GFR #### [address] [address] Urea nitrogen [Mass/Vol] 83.0 mg/dL High 8.0-22.0 [facility] MAIN Comment on above: Performed By: #### M G, RFP, BMP, GFR #### [address] [address] XR CHEST 1 VIEWon 03-14-2025 XR CHEST 1 VIEW ORIGINAL EXAMINATION: ONE XRAY VIEW OF THE CHEST 03/14/2025 1:50 pm COMPARISON: 03/12/2025 HISTORY: ORDERING SYSTEM PROVIDED HISTORY: Reason for Exam: sob FINDINGS: Marked pulmonary vascular cephalization, veiling of the lower lobe vessels and small to moderate bilateral pleural effusions show slight progression from prior study. Right IJ dialysis catheter, and permanent tracheostomy tube remain in functional position. There is no pneumothorax. Skeletal elements remain intact. IMPRESSION: Slight progression of pulmonary edema and bilateral pleural effusions. Interpreted by: Brayden Fair DO Preliminary Report By: Brayden Fair DO Electronically signed By Brayden Fair DO Dictated Date: 03/14/2025 4:19:57 PM Prelim Date: 03/14/2025 4:20:34 PM Sign Date: 03/14/2025 4:20:34 PM Ordering Provider: BISHNU SALAMANCA [facility] MAIN .GFRon 03-13-2025 Estimated Glomerular Filtration Rate 41 ml/min/1.73sqm [facility] MAIN Comment on above: Result Comment: Stages of Chronic Kidney Disease (CKD) Stage Description eGFR(ml/min/1.73 sq.m.) CKD 1 Normal kidney function or >=90 normal kindney function with possible kidney damage (ex. Proteinuria) CKD 2 Kidney damage with mild loss 60-89 of kidney function CKD 3a Mild to moderate loss of kidney 45-59 function CKD 3b Moderate to severe loss of 30-44 of kindey function CKD 4 Severe loss of kidney function 15-29 CKD 5 Kidney failure <15 Note: (go live 2024) the eGFR calculation was updated to the 2020 CKD-EPI creatinine equation without a race factor to calculate the eGFR results. Performed By: #### C BC, GFR, MORPH, RFP, DIFF #### [address] [address] BMPon 03-13-2025 BUN/Creatinine Ratio 49.6 ratio High 10.0-22.0 [facility] MAIN Comment on above: Performed By: #### C BC, GFR, MORPH, RFP, DIFF #### [address] [address] Calcium [Mass/Vol] 8.4 mg/dL Low 8.7-10.4 [facility] MAIN Comment on above: Performed By: #### C BC, GFR, MORPH, RFP, DIFF #### [address] [address] Chloride [Moles/Vol] 113 mmol/L High 98-110 [facility] MAIN Comment on above: Performed By: #### C BC, GFR, MORPH, RFP, DIFF #### [address] [address] CO2 [Moles/Vol] 23 mmol/L Normal 22-32 [facility] MAIN Comment on above: Performed By: #### C BC, GFR, MORPH, RFP, DIFF #### [address] [address] Creatinine [Mass/Vol] 1.35 mg/dL High 0.50-1.20 [facility] MAIN Comment on above: Result Comment: Test ing performed on [employer] analyzer using enzymatic creatinine methodology. Performed By: #### C BC, GFR, MORPH, RFP, DIFF #### [address] [address] Electrolyte Balance 11.0 mEq/L Normal 4.0-15.0 [facility] MAIN Comment on above: Performed By: #### C BC, GFR, MORPH, RFP, DIFF #### [address] [address] Glucose [Mass/Vol] 306 mg/dL High 82-115 [facility] MAIN Comment on above: Performed By: #### C BC, GFR, MORPH, RFP, DIFF #### [address] [address] Potassium [Moles/Vol] 3.9 mmol/L Normal 3.5-5.0 [facility] MAIN Comment on above: Performed By: #### C BC, GFR, MORPH, RFP, DIFF #### [address] [address] Sodium [Moles/Vol] 147 mmol/L High 136-145 [facility] MAIN Comment on above: Performed By: #### C BC, GFR, MORPH, RFP, DIFF #### [address] [address] Urea nitrogen [Mass/Vol] 67.0 mg/dL High 8.0-22.0 [facility] MAIN Comment on above: Performed By: #### C BC, GFR, MORPH, RFP, DIFF #### [address] [address] .Auto Diffon 03-12-2025 Basophil, Absolute 0.1 10 3/mcL Normal 0.0-0.3 [facility] MAIN Comment on above: Performed By: #### C BC, GFR, MORPH, RFP, DIFF #### [address] [address] Basophils/100 WBC (Bld) 0.7 % Normal 0.0-2.5 [facility] MAIN Comment on above: Performed By: #### C BC, GFR, MORPH, RFP, DIFF #### [address] [address] Eosinophil, Absolute 0.2 10 3/mcL Normal 0.0-0.7 [facility] MAIN Comment on above: Performed By: #### C BC, GFR, MORPH, RFP, DIFF #### [address] [address] Eosinophils/100 WBC (Bld) 2.9 % Normal 0.0-6.0 [facility] MAIN Comment on above: Performed By: #### C BC, GFR, MORPH, RFP, DIFF #### [address] [address] Lymphocyte, Absolute 1.0 10 3/mcL Normal 0.9-4.3 [facility] MAIN Comment on above: Performed By: #### C BC, GFR, MORPH, RFP, DIFF #### [address] [address] Lymphocytes/100 WBC (Bld) 12.1 % Low 20.0-40.0 [facility] MAIN Comment on above: Performed By: #### C BC, GFR, MORPH, RFP, DIFF #### [facility] [address] [place] [address] Monocyte, Absolute 1.1 10 3/mcL Normal 0.1-1.4 [facility] MAIN Comment on above: Performed By: #### C BC, GFR, MORPH, RFP, DIFF #### [address] [address] Monocytes/100 WBC (Bld) 14.2 % High 2.0-13.0 [facility] MAIN Comment on above: Performed By: #### C BC, GFR, MORPH, RFP, DIFF #### [address] [address] Neutrophils/100 WBC (Bld) 70.1 % Normal 50.0-75.0 [facility] MAIN Comment on above: Performed By: #### C BC, GFR, MORPH, RFP, DIFF #### [address] [address] .GFRon 03-12-2025 Estimated Glomerular Filtration Rate 43 ml/min/1.73sqm Normal [facility] MAIN Comment on above: Result Comment: Stages of Chronic Kidney Disease (CKD) Stage Description eGFR(ml/min/1.73 sq.m.) CKD 1 Normal kidney function or >=90 normal kindney function with possible kidney damage (ex. Proteinuria) CKD 2 Kidney damage with mild loss 60-89 of kidney function CKD 3a Mild to moderate loss of kidney 45-59 function CKD 3b Moderate to severe loss of 30-44 of kindey function CKD 4 Severe loss of kidney function 15-29 CKD 5 Kidney failure <15 Note: (go live 2024) the eGFR calculation was updated to the 2020 CKD-EPI creatinine equation without a race factor to calculate the eGFR results. Performed By: #### C BC, GFR, MORPH, RFP, DIFF #### [address] [address] .NEUABSon 03-12-2025 Neutrophil, Absolute 5.6 10 3/mcL Normal 2.3-8.1 [facility] MAIN Comment on above: Performed By: #### C BC, GFR, MORPH, RFP, DIFF #### [address] [address] BMPon 03-12-2025 BUN/Creatinine Ratio 49.6 ratio High 10.0-22.0 [facility] MAIN Comment on above: Performed By: #### C BC, GFR, MORPH, RFP, DIFF #### [address] [address] Calcium [Mass/Vol] 8.2 mg/dL Low 8.7-10.4 [facility] MAIN Comment on above: Performed By: #### C BC, GFR, MORPH, RFP, DIFF #### [address] [address] Chloride [Moles/Vol] 112 mmol/L High 98-110 [facility] MAIN Comment on above: Performed By: #### C BC, GFR, MORPH, RFP, DIFF #### [address] [address] CO2 [Moles/Vol] 21 mmol/L Low 22-32 [facility] MAIN Comment on above: Performed By: #### C BC, GFR, MORPH, RFP, DIFF #### [address] [address] Creatinine [Mass/Vol] 1.29 mg/dL High 0.50-1.20 [facility] MAIN Comment on above: Result Comment: Test ing performed on [employer] analyzer using enzymatic creatinine methodology. Performed By: #### C BC, GFR, MORPH, RFP, DIFF #### [address] [address] Electrolyte Balance 13.0 mEq/L Normal 4.0-15.0 [facility] MAIN Comment on above: Performed By: #### C BC, GFR, MORPH, RFP, DIFF #### [address] [address] Glucose [Mass/Vol] 317 mg/dL High 82-115 [facility] MAIN Comment on above: Performed By: #### C BC, GFR, MORPH, RFP, DIFF #### [address] [address] Potassium [Moles/Vol] 3.9 mmol/L Normal 3.5-5.0 [facility] MAIN Comment on above: Performed By: #### C BC, GFR, MORPH, RFP, DIFF #### [place] [address] Sodium [Moles/Vol] 146 mmol/L High 136-145 [facility] MAIN Comment on above: Performed By: #### C BC, GFR, MORPH, RFP, DIFF #### [place] [address] Urea nitrogen [Mass/Vol] 64.0 mg/dL High 8.0-22.0 [facility] MAIN Comment on above: Performed By: #### C BC, GFR, MORPH, RFP, DIFF #### [place] [address] CBCon 03-12-2025 Erythrocyte distribution width (RBC) [Ratio] 22.3 % High 11.5-15.5 [facility] MAIN Comment on above: Performed By: #### C BC, GFR, MORPH, RFP, DIFF #### [place] [address] Hematocrit (Bld) [Volume fraction] 31.5 % Low 34.0-46.0 [facility] MAIN Comment on above: Performed By: #### C BC, GFR, MORPH, RFP, DIFF #### [place] [address] Hgb 9.8 G/dL Low 12.0-16.0 [facility] MAIN Comment on above: Performed By: #### C BC, GFR, MORPH, RFP, DIFF #### [place] [address] MCH (RBC) [Entitic mass] 22.5 pg Low 27.0-33.0 [facility] MAIN Comment on above: Performed By: #### C BC, GFR, MORPH, RFP, DIFF #### [place] [address] MCHC 31.1 G/dL Low 32.0-36.0 [facility] MAIN Comment on above: Performed By: #### C BC, GFR, MORPH, RFP, DIFF #### [place] [address] MCV (RBC) [Entitic vol] 72.3 fL Low 80.0-99.0 [facility] MAIN Comment on above: Performed By: #### C BC, GFR, MORPH, RFP, DIFF #### [address] [address] Platelet 190 10 3/mcL Normal 150-450 [facility] MAIN Comment on above: Performed By: #### C BC, GFR, MORPH, RFP, DIFF #### [place] [address] Platelet mean volume (Bld) [Entitic vol] 9.2 fL Normal 6.6-10.5 [facility] MAIN Comment on above: Performed By: #### C BC, GFR, MORPH, RFP, DIFF #### [place] [address] RBC 4.36 10 6/mcL Normal 4.10-5.30 [facility] MAIN Comment on above: Performed By: #### C BC, GFR, MORPH, RFP, DIFF #### [place] [id number] WBC 8.0 10 3/mcL Normal 4.5-10.8 [facility] MAIN Comment on above: Performed By: #### C BC, GFR, MORPH, RFP, DIFF #### [place] [address] XR CHEST 1 VIEWon 03-12-2025 XR CHEST 1 VIEW ORIGINAL HISTORY: Short of breath COMPARISON: 4 days previously FINDINGS: Tracheostomy and right-sided port are unchanged. There are mild hazy opacities in both lung bases. There is a small left effusion. The pulmonary vasculature is unremarkable in appearance. IMPRESSION: No significant interval change Interpreted by: Yamil Small MD Preliminary Report By: Yamil Small MD Electronically signed By Yamil Small MD Dictated Date: 03/12/2025 9:37:46 AM Prelim Date: 03/12/2025 9:38:23 AM Sign Date: 03/12/2025 9:38:23 AM Ordering Provider: BISHNU Vera [facility] MAIN .GFRon 03-11-2025 Estimated Glomerular Filtration Rate 43 ml/min/1.73sqm [facility] MAIN Comment on above: Result Comment: Stages of Chronic Kidney Disease (CKD) Stage Description eGFR(ml/min/1.73 sq.m.) CKD 1 Normal kidney function or >=90 normal kindney function with possible kidney damage (ex. Proteinuria) CKD 2 Kidney damage with mild loss 60-89 of kidney function CKD 3a Mild to moderate loss of kidney 45-59 function CKD 3b Moderate to severe loss of 30-44 of kindey function CKD 4 Severe loss of kidney function 15-29 CKD 5 Kidney failure <15 Note: (go live 2024) the eGFR calculation was updated to the 2020 CKD-EPI creatinine equation without a race factor to calculate the eGFR results. Performed By: #### M G, RFP, BMP, GFR #### [address] [address] [facility] BUN/Creatinine Ratio 47.3 ratio High 10.0-22.0 [facility] MAIN Comment on above: Performed By: #### M G, RFP, BMP, GFR #### [address] [address] Calcium [Mass/Vol] 7.8 mg/dL Low 8.7-10.4 [facility] MAIN Comment on above: Performed By: #### M G, RFP, BMP, GFR #### [address] [address] Chloride [Moles/Vol] 110 mmol/L Normal 98-110 [facility] MAIN Comment on above: Performed By: #### M G, RFP, BMP, GFR #### [address] [address] CO2 [Moles/Vol] 23 mmol/L Normal 22-32 [facility] MAIN Comment on above: Performed By: #### M G, RFP, BMP, GFR #### [address] [address] Creatinine [Mass/Vol] 1.29 mg/dL High 0.50-1.20 [facility] MAIN Comment on above: Result Comment: Test ing performed on [employer] analyzer using enzymatic creatinine methodology. Performed By: #### M G, RFP, BMP, GFR #### [address] [address] Electrolyte Balance 10.0 mEq/L Normal 4.0-15.0 [facility] MAIN Comment on above: Performed By: #### M G, RFP, BMP, GFR #### [address] [address] Glucose [Mass/Vol] 371 mg/dL High 82-115 [facility] MAIN Comment on above: Performed By: #### M G, RFP, BMP, GFR #### [address] [address] Potassium [Moles/Vol] 3.4 mmol/L Low 3.5-5.0 [facility] MAIN Comment on above: Performed By: #### M G, RFP, BMP, GFR #### [address] [address] Sodium [Moles/Vol] 143 mmol/L Normal 136-145 [facility] MAIN Comment on above: Performed By: #### M G, RFP, BMP, GFR #### [address] [address] Urea nitrogen [Mass/Vol] 61.0 mg/dL High 8.0-22.0 [facility] MAIN Comment on above: Performed By: #### M G, RFP, BMP, GFR #### [address] [address] MGon 03-11-2025 Magnesium [Mass/Vol] 1.8 mg/dL Normal 1.6-2.4 [facility] MAIN Comment on above: Performed By: #### M G, RFP, BMP, GFR #### [address] [address] [facility] Albumin Level 2.4 G/dL Low 3.2-4.8 [facility] MAIN Comment on above: Performed By: #### M G, RFP, BMP, GFR #### [address] [address] Phosphate [Mass/Vol] 2.4 mg/dL Normal 2.4-5.1 [facility] MAIN Comment on above: Performed By: #### M G, RFP, BMP, GFR #### [address] [address] .GFRon 03-10-2025 Estimated Glomerular Filtration Rate 41 ml/min/1.73sqm Normal [facility] MAIN Comment on above: Result Comment: Stages of Chronic Kidney Disease (CKD) Stage Description eGFR(ml/min/1.73 sq.m.) CKD 1 Normal kidney function or >=90 normal kindney function with possible kidney damage (ex. Proteinuria) CKD 2 Kidney damage with mild loss 60-89 of kidney function CKD 3a Mild to moderate loss of kidney 45-59 function CKD 3b Moderate to severe loss of 30-44 of kindey function CKD 4 Severe loss of kidney function 15-29 CKD 5 Kidney failure <15 Note: (go live 2024) the eGFR calculation was updated to the 2020 CKD-EPI creatinine equation without a race factor to calculate the eGFR results. Performed By: #### G FR, RFP #### [place] [address] BMPon 03-10-2025 BUN/Creatinine Ratio 45.1 ratio High 10.0-22.0 [facility] MAIN Comment on above: Performed By: #### G FR, RFP #### [place] [address] Calcium [Mass/Vol] 8.2 mg/dL Low 8.7-10.4 [facility] MAIN Comment on above: Performed By: #### G FR, RFP #### [place] [id number] Chloride [Moles/Vol] 114 mmol/L High 98-110 [facility] MAIN Comment on above: Performed By: #### G FR, RFP #### [place] [id number] CO2 [Moles/Vol] 24 mmol/L Normal 22-32 [facility] MAIN Comment on above: Performed By: #### G FR, RFP #### [place] [id number] Creatinine [Mass/Vol] 1.33 mg/dL High 0.50-1.20 [facility] MAIN Comment on above: Result Comment: Test ing performed on [employer] analyzer using enzymatic creatinine methodology. Performed By: #### G FR, RFP #### [address] [address] Electrolyte Balance 11.0 mEq/L Normal 4.0-15.0 [facility] MAIN Comment on above: Performed By: #### G FR, RFP #### [address] [address] Glucose [Mass/Vol] 309 mg/dL High 82-115 [facility] MAIN Comment on above: Performed By: #### Linda FR, RFP #### [address] [address] Potassium [Moles/Vol] 3.2 mmol/L Low 3.5-5.0 [facility] MAIN Comment on above: Performed By: #### Linda DAVENPORT, RFP #### [place] [id number] Sodium [Moles/Vol] 149 mmol/L High 136-145 [facility] MAIN Comment on above: Performed By: #### Linda DAVENPORT, RFP #### [place] [address] Urea nitrogen [Mass/Vol] 60.0 mg/dL High 8.0-22.0 [facility] MAIN Comment on above: Performed By: #### Linda DAVENPORT, RFP #### [place] [address] MGon 03-10-2025 Magnesium [Mass/Vol] 1.7 mg/dL Normal 1.6-2.4 [facility] MAIN Comment on above: Performed By: #### Linda FR, RFP #### [place] [address] PHOSon 03-10-2025 Phosphate [Mass/Vol] 1.1 mg/dL Critically abnormal 2.4-5.1 [facility] MAIN Comment on above: Order Comment: vrb- called critical Phos to RYNE Slade 03/10/2025 04:02:07 EDT SAS Performed By: #### M G, RFP, BMP, GFR #### [address] [address] .GFRon 03-09-2025 Estimated Glomerular Filtration Rate 42 ml/min/1.73sqm Normal [facility] MAIN Comment on above: Result Comment: Stages of Chronic Kidney Disease (CKD) Stage Description eGFR(ml/min/1.73 sq.m.) CKD 1 Normal kidney function or >=90 normal kindney function with possible kidney damage (ex. Proteinuria) CKD 2 Kidney damage with mild loss 60-89 of kidney function CKD 3a Mild to moderate loss of kidney 45-59 function CKD 3b Moderate to severe loss of 30-44 of kindey function CKD 4 Severe loss of kidney function 15-29 CKD 5 Kidney failure <15 Note: (go live 2024) the eGFR calculation was updated to the 2020 CKD-EPI creatinine equation without a race factor to calculate the eGFR results. Performed By: #### C BC, GFR, MORPH, RFP, DIFF #### [address] [address] BMPon 03-09-2025 BUN/Creatinine Ratio 37.4 ratio High 10.0-22.0 [facility] MAIN Comment on above: Performed By: #### C BC, GFR, MORPH, RFP, DIFF #### [address] [address] Calcium [Mass/Vol] 8.8 mg/dL Normal 8.7-10.4 [facility] MAIN Comment on above: Performed By: #### C BC, GFR, MORPH, RFP, DIFF #### [address] [address] Chloride [Moles/Vol] 117 mmol/L High 98-110 [facility] MAIN Comment on above: Performed By: #### C BC, GFR, MORPH, RFP, DIFF #### [address] [address] CO2 [Moles/Vol] 28 mmol/L Normal 22-32 [facility] MAIN Comment on above: Performed By: #### C BC, GFR, MORPH, RFP, DIFF #### [address] [address] Creatinine [Mass/Vol] 1.31 mg/dL High 0.50-1.20 [facility] MAIN Comment on above: Result Comment: Test ing performed on [employer] analyzer using enzymatic creatinine methodology. Performed By: #### C BC, GFR, MORPH, RFP, DIFF #### [address] [address] Electrolyte Balance 8.0 mEq/L Normal 4.0-15.0 [facility] MAIN Comment on above: Performed By: #### C BC, GFR, MORPH, RFP, DIFF #### [address] [address] Glucose [Mass/Vol] 256 mg/dL High 82-115 [facility] MAIN Comment on above: Performed By: #### C BC, GFR, MORPH, RFP, DIFF #### [address] [address] Potassium [Moles/Vol] 3.5 mmol/L Normal 3.5-5.0 [facility] MAIN Comment on above: Performed By: #### C BC, GFR, MORPH, RFP, DIFF #### [address] [address] Sodium [Moles/Vol] 153 mmol/L High 136-145 [facility] MAIN Comment on above: Performed By: #### C BC, GFR, MORPH, RFP, DIFF #### [address] [address] Urea nitrogen [Mass/Vol] 49.0 mg/dL High 8.0-22.0 [facility] MAIN Comment on above: Performed By: #### C BC, GFR, MORPH, RFP, DIFF #### [address] [address] .Auto Diffon 03-08-2025 Basophil, Absolute 0.1 10 3/mcL Normal 0.0-0.3 [facility] MAIN Comment on above: Performed By: #### C BC, GFR, MORPH, RFP, DIFF #### [address] [address] Basophils/100 WBC (Bld) 0.9 % Normal 0.0-2.5 [facility] MAIN Comment on above: Performed By: #### C BC, GFR, MORPH, RFP, DIFF #### [address] [address] Eosinophil, Absolute 0.2 10 3/mcL Normal 0.0-0.7 [facility] MAIN Comment on above: Performed By: #### C BC, GFR, MORPH, RFP, DIFF #### [address] [address] Eosinophils/100 WBC (Bld) 2.2 % Normal 0.0-6.0 [facility] MAIN Comment on above: Performed By: #### C BC, GFR, MORPH, RFP, DIFF #### [address] [address] Lymphocyte, Absolute 0.7 10 3/mcL Low 0.9-4.3 [facility] MAIN Comment on above: Performed By: #### C BC, GFR, MORPH, RFP, DIFF #### [address] [address] Lymphocytes/100 WBC (Bld) 7.3 % Low 20.0-40.0 [facility] MAIN Comment on above: Performed By: #### C BC, GFR, MORPH, RFP, DIFF #### [address] [address] Monocyte, Absolute 0.7 10 3/mcL Normal 0.1-1.4 [facility] MAIN Comment on above: Performed By: #### C BC, GFR, MORPH, RFP, DIFF #### [address] [address] Monocytes/100 WBC (Bld) 6.7 % Normal 2.0-13.0 [facility] MAIN Comment on above: Performed By: #### C BC, GFR, MORPH, RFP, DIFF #### [address] [address] Neutrophils/100 WBC (Bld) 82.9 % High 50.0-75.0 [facility] MAIN Comment on above: Performed By: #### C BC, GFR, MORPH, RFP, DIFF #### [address] [address] .GFRon 03-08-2025 Estimated Glomerular Filtration Rate 40 ml/min/1.73sqm Normal [facility] MAIN Comment on above: Result Comment: Stages of Chronic Kidney Disease (CKD) Stage Description eGFR(ml/min/1.73 sq.m.) CKD 1 Normal kidney function or >=90 normal kindney function with possible kidney damage (ex. Proteinuria) CKD 2 Kidney damage with mild loss 60-89 of kidney function CKD 3a Mild to moderate loss of kidney 45-59 function CKD 3b Moderate to severe loss of 30-44 of kindey function CKD 4 Severe loss of kidney function 15-29 CKD 5 Kidney failure <15 Note: (go live 2024) the eGFR calculation was updated to the 2020 CKD-EPI creatinine equation without a race factor to calculate the eGFR results. Performed By: #### C BC, GFR, MORPH, RFP, DIFF #### [facility] [address] [place] [address] .NEUABSon 03-08-2025 Neutrophil, Absolute 8.4 10 3/mcL High 2.3-8.1 [facility] MAIN Comment on above: Performed By: #### C BC, GFR, MORPH, RFP, DIFF #### [facility] [address] [place] [address] Basic Metabolic Profile (BMP )on 03-08-2025 BUN Normal 4-19 [facility] Comment on above: Result Comment: Canc elled via OM: Order cancelled - Patient discharged Performed By: #### L 500.2500, L100.0100 ####[facility] [address] [facility] [address] BUN/CRE Normal 10-20 [facility] Comment on above: Result Comment: Canc elled via OM: Order cancelled - Patient discharged Performed By: #### L 500.2500, L100.0100 ####[facility] [address] [place], [address] Calcium Normal 7.6-11.0 [facility] Comment on above: Result Comment: Canc elled via OM: Order cancelled - Patient discharged Performed By: #### L 500.2500, L100.0100 ####[facility] [address] [place], [address] CL Normal 98-108 [facility] Comment on above: Result Comment: Canc elled via OM: Order cancelled - Patient discharged Performed By: #### L 500.2500, L100.0100 ####[facility] [address] [place], [address] CO2 Normal 21.0-32.0 [facility] Comment on above: Result Comment: Canc elled via OM: Order cancelled - Patient discharged Performed By: #### L 500.2500, L100.0100 ####[facility] [address] [place], [address] CREAT,SERUM Normal 0.70-1.20 [facility] Comment on above: Result Comment: Canc elled via OM: Order cancelled - Patient discharged Performed By: #### L 500.2500, L100.0100 ####[facility] [address] [place], [address] eGFR Normal >60 [facility] Comment on above: Result Comment: Canc elled via OM: Order cancelled - Patient discharged Performed By: #### L 500.2500, L100.0100 ####[facility] [address] [place], [address] GAP Normal 5-15 [facility] Comment on above: Result Comment: Canc elled via OM: Order cancelled - Patient discharged Performed By: #### L 500.2500, L100.0100 ####[facility] [address] [place], [address] GLU Normal 70-99 [facility] Comment on above: Result Comment: Canc elled via OM: Order cancelled - Patient discharged Performed By: #### L 500.2500, L100.0100 ####[facility] [address] [place], [address] Potassium Normal 3.3-5.1 [facility] Comment on above: Result Comment: Canc elled via OM: Order cancelled - Patient discharged Performed By: #### L 500.2500, L100.0100 ####[facility] [address] [place], [address] Basic Metabolic Profile (BMP) Normal 133-145 [facility] Comment on above: Result Comment: Canc elled via OM: Order cancelled - Patient discharged Performed By: #### L 500.2500, L100.0100 ####[facility] [address] [place], [address] CBCon 03-08-2025 Erythrocyte distribution width (RBC) [Ratio] 22.3 % High 11.5-15.5 [facility] Comment on above: Performed By: #### C BC, GFR, MORPH, RFP, DIFF #### [address] [address] Hematocrit (Bld) [Volume fraction] 31.9 % Low 34.0-46.0 [facility] Comment on above: Performed By: #### C BC, GFR, MORPH, RFP, DIFF #### [address] [address] Hgb 9.9 G/dL Low 12.0-16.0 [facility] Comment on above: Performed By: #### C BC, GFR, MORPH, RFP, DIFF #### [address] [address] MCH (RBC) [Entitic mass] 22.6 pg Low 27.0-33.0 [facility] Comment on above: Performed By: #### C BC, GFR, MORPH, RFP, DIFF #### [address] [address] MCHC 31.1 G/dL Low 32.0-36.0 [facility] Comment on above: Performed By: #### C BC, GFR, MORPH, RFP, DIFF #### [address] [address] MCV (RBC) [Entitic vol] 72.5 fL Low 80.0-99.0 [facility] Comment on above: Performed By: #### C BC, GFR, MORPH, RFP, DIFF #### [address] [address] Platelet 228 10 3/mcL Normal 150-450 [facility] Comment on above: Performed By: #### C BC, GFR, MORPH, RFP, DIFF #### [address] [address] Platelet mean volume (Bld) [Entitic vol] 8.5 fL Normal 6.6-10.5 [facility] Comment on above: Performed By: #### C BC, GFR, MORPH, RFP, DIFF #### [address] [address] RBC 4.41 10 6/mcL Normal 4.10-5.30 [facility] Comment on above: Performed By: #### C BC, GFR, MORPH, RFP, DIFF #### [address] [address] WBC 10.1 10 3/mcL Normal 4.5-10.8 [facility] Comment on above: Performed By: #### C BC, GFR, MORPH, RFP, DIFF #### [address] [address] CBC W/Diff, Automatedon 02-25 Absolute Neut Normal 2.0-7.7 [facility] Comment on above: Result Comment: Canc elled via OM: Order cancelled - Patient discharged Performed By: #### L 500.2500, L100.0100 ####[facility] [address] [place], [address] HCT Normal 37-47 [facility] Comment on above: Result Comment: Canc elled via OM: Order cancelled - Patient discharged Performed By: #### L 500.2500, L100.0100 ####[facility] [address] [place], [address] HGB Normal 12.0-15.0 [facility] Comment on above: Result Comment: Canc elled via OM: Order cancelled - Patient discharged Performed By: #### L 500.2500, L100.0100 ####[facility] [address] [place], [address] MCH Normal 27.0-32.0 [facility] Comment on above: Result Comment: Canc elled via OM: Order cancelled - Patient discharged Performed By: #### L 500.2500, L100.0100 ####[facility] [address] [place], [address] MCHC Normal 32-36 [facility] Comment on above: Result Comment: Canc elled via OM: Order cancelled - Patient discharged Performed By: #### L 500.2500, L100.0100 ####[facility] [address] [place], [address] MCV Normal 81-99 [facility] Comment on above: Result Comment: Canc elled via OM: Order cancelled - Patient discharged Performed By: #### L 500.2500, L100.0100 ####[facility] [address] [place], [address] NEUT% Normal 47-70 [facility] Comment on above: Result Comment: Canc elled via OM: Order cancelled - Patient discharged Performed By: #### L 500.2500, L100.0100 ####[facility] [address] [place], [address] PLT Normal 150-450 [facility] Comment on above: Result Comment: Canc elled via OM: Order cancelled - Patient discharged Performed By: #### L 500.2500, L100.0100 ####[facility] [address] [place], [address] RBC Normal 4.2-5.4 [facility] Comment on above: Result Comment: Canc elled via OM: Order cancelled - Patient discharged Performed By: #### L 500.2500, L100.0100 ####[facility] [address] [place], [address] RDW CV Normal 11.6-14.6 [facility] Comment on above: Result Comment: Canc elled via OM: Order cancelled - Patient discharged Performed By: #### L 500.2500, L100.0100 ####[facility] [address] [place], [address] RDW SD Normal 35.1-43.9 [facility] Comment on above: Result Comment: Canc elled via OM: Order cancelled - Patient discharged Performed By: #### L 500.2500, L100.0100 ####[facility] [address] [place], [address] WBC Normal 4.4-11.0 [facility] Comment on above: Result Comment: Canc elled via OM: Order cancelled - Patient discharged Performed By: #### L 500.2500, L100.0100 ####[facility] [address] [place], [address] CMPon 03-08-2025 Albumin Level 2.6 G/dL Low 3.2-4.8 [facility] Comment on above: Performed By: #### C BC, GFR, MORPH, RFP, DIFF #### [address] [address] Albumin/Globulin [Mass ratio] 0.7 {ratio} Low 0.9-1.6 [facility] Comment on above: Performed By: #### C BC, GFR, MORPH, RFP, DIFF #### [address] [address] ALP [Catalytic activity/Vol] 57 U/L Normal 38-126 [facility] Comment on above: Performed By: #### C BC, GFR, MORPH, RFP, DIFF #### [address] [address] ALT/SGPT <7 Low 10-49 [facility] Comment on above: Performed By: #### C BC, GFR, MORPH, RFP, DIFF #### [address] [address] AST [Catalytic activity/Vol] 11 U/L Normal 8-34 [facility] Comment on above: Performed By: #### C BC, GFR, MORPH, RFP, DIFF #### [place] [id number] Bili Total 0.30 mg/dL Normal 0.20-1.20 [facility] Comment on above: Result Comment: Use of this assay is not recommended for patients undergoing treatment with eltrombopag due to the potential for falsely elevated results. Performed By: #### C BC, GFR, MORPH, RFP, DIFF #### [place] [address] BUN/Creatinine Ratio 34.6 ratio High 10.0-22.0 [facility] Comment on above: Performed By: #### C BC, GFR, MORPH, RFP, DIFF #### [place] [address] Calcium [Mass/Vol] 8.9 mg/dL Normal 8.7-10.4 [facility] Comment on above: Performed By: #### C BC, GFR, MORPH, RFP, DIFF #### [place] [address] Chloride [Moles/Vol] 116 mmol/L High 98-110 [facility] Comment on above: Performed By: #### C BC, GFR, MORPH, RFP, DIFF #### [place] [address] CO2 [Moles/Vol] 25 mmol/L Normal 22-32 [facility] Comment on above: Performed By: #### C BC, GFR, MORPH, RFP, DIFF #### [place] [address] Creatinine [Mass/Vol] 1.36 mg/dL High 0.50-1.20 [facility] Comment on above: Result Comment: Test ing performed on [employer] analyzer using enzymatic creatinine methodology. Performed By: #### C BC, GFR, MORPH, RFP, DIFF #### [place] [address] Electrolyte Balance 13.0 mEq/L Normal 4.0-15.0 [facility] Comment on above: Performed By: #### C BC, GFR, MORPH, RFP, DIFF #### [place] [id number] Globulin 3.6 G/dL Normal 2.5-4.2 [facility] Comment on above: Performed By: #### C BC, GFR, MORPH, RFP, DIFF #### [address] [address] Glucose [Mass/Vol] 213 mg/dL High 82-115 [facility] Comment on above: Performed By: #### C BC, GFR, MORPH, RFP, DIFF #### [address] [address] Potassium [Moles/Vol] 3.3 mmol/L Low 3.5-5.0 [facility] Comment on above: Performed By: #### C BC, GFR, MORPH, RFP, DIFF #### [address] [address] Sodium [Moles/Vol] 154 mmol/L High 136-145 [facility] Comment on above: Performed By: #### C BC, GFR, MORPH, RFP, DIFF #### [address] [address] Total Protein 6.2 G/dL Normal 5.7-8.2 [facility] Comment on above: Performed By: #### C BC, GFR, MORPH, RFP, DIFF #### [address] [address] Urea nitrogen [Mass/Vol] 47.0 mg/dL High 8.0-22.0 [facility] Comment on above: Performed By: #### C BC, GFR, MORPH, RFP, DIFF #### [address] [address] XR CHEST 1 VIEWon 03-08-2025 XR CHEST 1 VIEW ORIGINAL EXAMINATION: ONE XRAY VIEW OF THE CHEST 03/08/2025 7:13 am COMPARISON: None. HISTORY: ORDERING SYSTEM PROVIDED HISTORY: Reason for Exam: Vent weaning FINDINGS: Tracheostomy tube and right jugular dialysis catheter unchanged. Small left pleural effusion and trace right pleural effusion. Mild perihilar interstitial thickening. No pneumothorax. IMPRESSION: Mild pulmonary edema and small pleural effusions, greater on the left. Interpreted by: Carlos Ac Preliminary Report By: Carlos Ac Electronically signed By Carlos Ac Dictated Date: 03/08/2025 7:30:07 AM Prelim Date: 03/08/2025 7:31:39 AM Sign Date: 03/08/2025 7:31:39 AM Ordering Provider: ELKE MARQUEZ [facility] Basic Metabolic Profile (BMP )on 03-07-2025 BUN/CRE 33.2 RATIO High 10-20 [facility] Comment on above: Performed By: #### L 100.0100, L500.2500 ####[facility] [address] [place], [address] Calcium [Mass/Vol] 9.2 mg/dL Normal 7.6-11.0 [facility] Comment on above: Performed By: #### L 100.0100, L500.2500 ####[facility] [address] [place], [address] Chloride [Moles/Vol] 114 mmol/L High 98-108 [facility] Comment on above: Performed By: #### L 100.0100, L500.2500 ####[facility] [address] [place], [address] CO2 [Moles/Vol] 19.9 mmol/L Low 21.0-32.0 [facility] Comment on above: Performed By: #### L 100.0100, L500.2500 ####[facility] [address] [place], [address] Creatinine [Mass/Vol] 1.46 mg/dL High 0.70-1.20 [facility] Comment on above: Performed By: #### L 100.0100, L500.2500 ####[facility] [address] [place], [address] ECRCL 38.38 ml/min Low 50-250 [facility] Comment on above: Performed By: #### L 100.0100, L500.2500 ####[facility] [address] [place], [address] GAP 16 High 5-15 [facility] Comment on above: Performed By: #### L 100.0100, L500.2500 ####[facility] [address] [place], [address] GFR/1.73 sq M.predicted among non-blacks MDRD (S/P/Bld) [Vol rate/Area] 37 mL/min/{1.73_m2} Low >60 [facility] Comment on above: Result Comment: mL/m in/1.73m2 CKD-EPI Creatinine Equation (2020) Performed By: #### L 100.0100, L500.2500 ####[facility] [address] [place], [address] Glucose [Mass/Vol] 167 mg/dL High 70-99 [facility] Comment on above: Performed By: #### L 100.0100, L500.2500 ####[facility] [address] [place], [address] Potassium [Moles/Vol] 3.3 mmol/L Normal 3.3-5.1 [facility] Comment on above: Performed By: #### L 100.0100, L500.2500 ####[facility] [address] [place], [address] Sodium [Moles/Vol] 150 mmol/L High 133-145 [facility] Comment on above: Performed By: #### L 100.0100, L500.2500 ####[facility] [address] [place], [address] Urea nitrogen [Mass/Vol] 49 mg/dL High 4-19 [facility] Comment on above: Performed By: #### L 100.0100, L500.2500 ####[facility] [address] [place], [address] Bedside Glucoseon 03-07-2025 FINGERSTICK GLU 144 mg/dL High 74-106 [facility] Comment on above: Result Comment: VI GEMENT OF PATIENT CARE PER NURSING PROTOCOL Performed By: #### L 501.080 ####[facility] [address] [place], [address] FINGERSTICK GLU 143 mg/dL High 74-106 [facility] Comment on above: Result Comment: VI GEMENT OF PATIENT CARE PER NURSING PROTOCOL Performed By: #### L 501.080 ####[facility] [address] [place], [address] CBC W/Diff, Automatedon - Anisocytosis Ql (Bld) 2+ Normal [facility] Comment on above: Performed By: #### L 100.0100, L500.2500 ####[facility] [address] [place], [address] OVALOCYTE 2+ Normal [facility] Comment on above: Performed By: #### L 100.0100, L500.2500 ####[facility] [address] [place], [address] POLYCHROMASIA 1+ Normal [facility] Comment on above: Performed By: #### L 100.0100, L500.2500 ####[facility] [address] [place], [address] SCHISTOCYTES RARE Normal [facility] Comment on above: Performed By: #### L 100.0100, L500.2500 ####[facility] [address] [place], [address] PLT EST ADEQUATE Normal ADEQ [facility] Comment on above: Performed By: #### L 100.0100, L500.2500 ####[facility] [address] [place], [address] SMEAR COMMENT SCANNED Normal [facility] Comment on above: Performed By: #### L 100.0100, L500.2500 ####[facility] [address] [place], [address] Discharge Instructionon 02-25 Discharge Instruction Normal [facility] Basic Metabolic Profile (BMP )on 03-06-2025 BUN/CRE 33.2 RATIO High 10-20 [facility] Comment on above: Performed By: #### L 100.0100, L500.2500 ####[facility] [address] [place], [address] Calcium [Mass/Vol] 9.3 mg/dL Normal 7.6-11.0 [facility] Comment on above: Performed By: #### L 100.0100, L500.2500 ####[facility] [address] [place], [address] Chloride [Moles/Vol] 108 mmol/L Normal 98-108 [facility] Comment on above: Performed By: #### L 100.0100, L500.2500 ####[facility] [address] [place], [address] CO2 [Moles/Vol] 20.3 mmol/L Low 21.0-32.0 [facility] Comment on above: Performed By: #### L 100.0100, L500.2500 ####[facility] [address] [place], [address] Creatinine [Mass/Vol] 1.54 mg/dL High 0.70-1.20 [facility] Comment on above: Performed By: #### L 100.0100, L500.2500 ####[facility] [address] [place], [address] ECRCL 36.21 ml/min Low 50-250 [facility] Comment on above: Performed By: #### L 100.0100, L500.2500 ####[facility] [address] [place], [address] GAP 15 Normal 5-15 [facility] Comment on above: Performed By: #### L 100.0100, L500.2500 ####[facility] [address] [place], [address] GFR/1.73 sq M.predicted among non-blacks MDRD (S/P/Bld) [Vol rate/Area] 35 mL/min/{1.73_m2} Low >60 [facility] Comment on above: Result Comment: mL/m in/1.73m2 CKD-EPI Creatinine Equation (2020) Performed By: #### L 100.0100, L500.2500 ####[facility] [address] [place], [address] Glucose [Mass/Vol] 199 mg/dL High 70-99 [facility] Comment on above: Performed By: #### L 100.0100, L500.2500 ####[facility] [address] [place], [address] Potassium [Moles/Vol] 3.7 mmol/L Normal 3.3-5.1 [facility] Comment on above: Performed By: #### L 100.0100, L500.2500 ####[facility] [address] [place], [address] Sodium [Moles/Vol] 144 mmol/L Normal 133-145 [facility] Comment on above: Performed By: #### L 100.0100, L500.2500 ####[facility] [address] [place], [address] Urea nitrogen [Mass/Vol] 51 mg/dL High 4-19 [facility] Comment on above: Performed By: #### L 100.0100, L500.2500 ####[facility] [address] [place], [address] Bedside Glucoseon 03-06-2025 FINGERSTICK GLU 150 mg/dL High 74-106 [facility] Comment on above: Result Comment: VI GEMENT OF PATIENT CARE PER NURSING PROTOCOL Performed By: #### L 501.080 ####[facility] [address] [place], [address] FINGERSTICK GLU 155 mg/dL High -106 [facility] Comment on above: Result Comment: VI GEMENT OF PATIENT CARE PER NURSING PROTOCOL Performed By: #### L 501.080 ####[facility] [address] [place], [address] FINGERSTICK GLU 158 mg/dL High 74-106 [facility] Comment on above: Result Comment: VI GEMENT OF PATIENT CARE PER NURSING PROTOCOL Performed By: #### L 501.080 ####[facility] [address] [place], [address] FINGERSTICK GLU 175 mg/dL High -106 [facility] Comment on above: Result Comment: VI GEMENT OF PATIENT CARE PER NURSING PROTOCOL Performed By: #### L 501.080 ####[facility] [address] [place], [address] FINGERSTICK GLU 187 mg/dL High [facility]106 [facility] Comment on above: Result Comment: VI GEMENT OF PATIENT CARE PER NURSING PROTOCOL Performed By: #### L 501.080 ####[facility] [address] [place], [address] CBC W/Diff, Automatedon - Anisocytosis Ql (Bld) 2+ Normal [facility] Comment on above: Performed By: #### L 100.0100, L500.2500 ####[facility] [address] [place], [address] MICROCYTIC 2+ Normal [facility] Comment on above: Performed By: #### L 100.0100, L500.2500 ####[facility] [address] [place], [address] OVALOCYTE RARE Normal [facility] Comment on above: Performed By: #### L 100.0100, L500.2500 ####[facility] [address] [place], [address] SMEAR COMMENT SCANNED Normal [facility] Comment on above: Performed By: #### L 100.0100, L500.2500 ####[facility] [address] [place], [address] EGD Reporton 03-06-2025 EGD Report Normal [facility] Small Bowel Series Onlyon Small Bowel Series Only Normal [facility] Basic Metabolic Profile (BMP )on 03-05-2025 BUN/CRE 32.6 RATIO High 10-20 [facility] Comment on above: Performed By: #### L 100.0100, L500.2500 ####[facility] [address] [place], [address] Calcium [Mass/Vol] 9.3 mg/dL Normal 7.6-11.0 [facility] Comment on above: Performed By: #### L 100.0100, L500.2500 ####[facility] [address] [place], [address] Chloride [Moles/Vol] 104 mmol/L Normal 98-108 [facility] Comment on above: Performed By: #### L 100.0100, L500.2500 ####[facility] [address] [place], [address] CO2 [Moles/Vol] 18.4 mmol/L Low 21.0-32.0 [facility] Comment on above: Performed By: #### L 100.0100, L500.2500 ####[facility] [address] [place], [address] Creatinine [Mass/Vol] 1.52 mg/dL High 0.70-1.20 [facility] Comment on above: Performed By: #### L 100.0100, L500.2500 ####[facility] [address] [place], [address] ECRCL 36.68 ml/min Low 50-250 [facility] Comment on above: Performed By: #### L 100.0100, L500.2500 ####[facility] [address] [place], [address] GAP 20 High 5-15 [facility] Comment on above: Performed By: #### L 100.0100, L500.2500 ####[facility] [address] [place], [address] GFR/1.73 sq M.predicted among non-blacks MDRD (S/P/Bld) [Vol rate/Area] 35 mL/min/{1.73_m2} Low >60 [facility] Comment on above: Result Comment: mL/m in/1.73m2 CKD-EPI Creatinine Equation (2020) Performed By: #### L 100.0100, L500.2500 ####[facility] [address] [place], [address] Glucose [Mass/Vol] 170 mg/dL High 70-99 [facility] Comment on above: Performed By: #### L 100.0100, L500.2500 ####[facility] [address] [place], [address] Potassium [Moles/Vol] 3.8 mmol/L Normal 3.3-5.1 [facility] Comment on above: Performed By: #### L 100.0100, L500.2500 ####[facility] [address] [place], [address] Sodium [Moles/Vol] 143 mmol/L Normal 133-145 [facility] Comment on above: Performed By: #### L 100.0100, L500.2500 ####[facility] [address] [place], [address] Urea nitrogen [Mass/Vol] 50 mg/dL High 4-19 [facility] Comment on above: Performed By: #### L 100.0100, L500.2500 ####[facility] [address] [place], [address] Bedside Glucoseon 03-05-2025 FINGERSTICK GLU 179 mg/dL High 74-106 [facility] Comment on above: Result Comment: VI GEMENT OF PATIENT CARE PER NURSING PROTOCOL Performed By: #### L 501.080 ####[facility] [address] [place], [address] FINGERSTICK GLU 200 mg/dL High 74-106 [facility] Comment on above: Result Comment: VI GEMENT OF PATIENT CARE PER NURSING PROTOCOL Performed By: #### L 501.080 ####[facility] [address] [place], [address] FINGERSTICK GLU 132 mg/dL High -106 [facility] Comment on above: Result Comment: VI GEMENT OF PATIENT CARE PER NURSING PROTOCOL Performed By: #### L 501.080 ####[facility] [address] [place], [address] FINGERSTICK GLU 141 mg/dL High 74-106 [facility] Comment on above: Result Comment: VI GEMENT OF PATIENT CARE PER NURSING PROTOCOL Performed By: #### L 501.080 ####[facility] [address] [place], [address] CBC W/Diff, Automatedon Anisocytosis Ql (Bld) 1+ Normal [facility] Comment on above: Performed By: #### L 100.0100, L500.2500 ####[facility] [address] [place], [address] Consultation - OB/GYNon Consultation - [place] Normal [facility] Basic Metabolic Profile (BMP )on 03-04-2025 BUN/CRE 28.8 RATIO High 10-20 [facility] Comment on above: Performed By: #### L 100.0100, L500.2500 ####[facility] [address] [place], [address] Calcium [Mass/Vol] 9.2 mg/dL Normal 7.6-11.0 [facility] Comment on above: Performed By: #### L 100.0100, L500.2500 ####[facility] [address] [place], [address] Chloride [Moles/Vol] 103 mmol/L Normal 98-108 [facility] Comment on above: Performed By: #### L 100.0100, L500.2500 ####[facility] [address] [place], [address] CO2 [Moles/Vol] 21.1 mmol/L Normal 21.0-32.0 [facility] Comment on above: Performed By: #### L 100.0100, L500.2500 ####[facility] [address] [place], [address] Creatinine [Mass/Vol] 1.70 mg/dL High 0.70-1.20 [facility] Comment on above: Performed By: #### L 100.0100, L500.2500 ####[facility] [address] [place], [address] ECRCL 33.16 ml/min Low 50-250 [facility] Comment on above: Performed By: #### L 100.0100, L500.2500 ####[facility] [address] [place], [address] GAP 18 High 5-15 [facility] Comment on above: Performed By: #### L 100.0100, L500.2500 ####[facility] [address] [place], [address] GFR/1.73 sq M.predicted among non-blacks MDRD (S/P/Bld) [Vol rate/Area] 31 mL/min/{1.73_m2} Low >60 [facility] Comment on above: Result Comment: mL/m in/1.73m2 CKD-EPI Creatinine Equation (2020) Performed By: #### L 100.0100, L500.2500 ####[facility] [address] [place], [address] Glucose [Mass/Vol] 142 mg/dL High 70-99 [facility] Comment on above: Performed By: #### L 100.0100, L500.2500 ####[facility] [address] [place], [address] Potassium [Moles/Vol] 3.2 mmol/L Low 3.3-5.1 [facility] Comment on above: Performed By: #### L 100.0100, L500.2500 ####[facility] [address] [place], [address] Sodium [Moles/Vol] 142 mmol/L Normal 133-145 [facility] Comment on above: Performed By: #### L 100.0100, L500.2500 ####[facility] [address] [place], [address] Urea nitrogen [Mass/Vol] 49 mg/dL High 4-19 [facility] Comment on above: Performed By: #### L 100.0100, L500.2500 ####[facility] [address] [place], [address] Bedside Glucoseon 03-04-2025 FINGERSTICK GLU 143 mg/dL High 74-106 [facility] Comment on above: Result Comment: Dr Shawn padilla FollowedMANAGEMENT OF PATIENT CARE PER NURSING PROTOCOL Performed By: #### L 501.080 ####[facility] [address] [place], [address] FINGERSTICK GLU 158 mg/dL High 74-106 [facility] Comment on above: Result Comment: Insu neo GivenMANAGEMENT OF PATIENT CARE PER NURSING PROTOCOL Performed By: #### L 501.080 ####[facility] [address] [place], [address] FINGERSTICK GLU 141 mg/dL High 74-106 [facility] Comment on above: Result Comment: VI GEMENT OF PATIENT CARE PER NURSING PROTOCOL Performed By: #### L 501.080 ####[facility] [address] [place], [address] CBC W/Diff, Automatedon 06-0 8-2024 Absolute Lymph 1.12 X10 3/uL Normal 0.83-4.51 [facility] Comment on above: Performed By: #### L 100.0100, L500.2500 ####[facility] [address] [place], [address] Absolute Neut 7.0 X10 3/uL Normal 2.0-7.7 [facility] Comment on above: Performed By: #### L 100.0100, L500.2500 ####[facility] [address] [place], [address] Basophils/100 WBC (Bld) 1.5 % High 0-1 [facility] Comment on above: Performed By: #### L 100.0100, L500.2500 ####[facility] [address] [place], [address] Eosinophils/100 WBC (Bld) 3.5 % Normal 0-5 [facility] Comment on above: Performed By: #### L 100.0100, L500.2500 ####[facility] [address] [place], [address] Erythrocyte distribution width (RBC) [Ratio] 19.7 % High 11.6-14.6 [facility] Comment on above: Performed By: #### L 100.0100, L500.2500 ####[facility] [address] [place], [address] Hematocrit (Bld) [Volume fraction] 31.1 % Low 37-47 [facility] Comment on above: Performed By: #### L 100.0100, L500.2500 ####[facility] [address] [place], [address] Hemoglobin (Bld) [Mass/Vol] 9.2 g/dL Low 12.0-15.0 [facility] Comment on above: Performed By: #### L 100.0100, L500.2500 ####[facility] [address] [place], [address] IG% 0.400 Normal 0.0-0.9 [facility] Comment on above: Result Comment: IG% - Immature Granulocytes (promyelocytes, myelocytes andmetamyelocytes) > 1% indicates that a LEFT SHIFT is Present. Performed By: #### L 100.0100, L500.2500 ####[facility] [address] [place], [address] Lymphocytes/100 WBC (Bld) 11.8 % Low 19-41 [facility] Comment on above: Performed By: #### L 100.0100, L500.2500 ####[facility] [address] [place], [address] MCH (RBC) [Entitic mass] 21.5 pg Low 27.0-32.0 [facility] Comment on above: Performed By: #### L 100.0100, L500.2500 ####[facility] [address] [place], [address] MCHC (RBC) [Mass/Vol] 29.6 g/dL Low 32-36 [facility] Comment on above: Performed By: #### L 100.0100, L500.2500 ####[facility] [address] [place], [address] MCV (RBC) [Entitic vol] 72.8 fL Low 81-99 [facility] Comment on above: Performed By: #### L 100.0100, L500.2500 ####[facility] [address] [place], [address] Monocytes/100 WBC (Bld) 9.2 % Normal 0-10 [facility] Comment on above: Performed By: #### L 100.0100, L500.2500 ####[facility] [address] [place], [address] Neutrophils/100 WBC (Bld) 73.6 % High 47-70 [facility] Comment on above: Performed By: #### L 100.0100, L500.2500 ####[facility] [address] [place], [address] Nucleated RBC (Bld) [#/Vol] 0 10*3/uL Normal 0-5 [facility] Comment on above: Performed By: #### L 100.0100, L500.2500 ####[facility] [address] [place], [address] Platelet mean volume (Bld) [Entitic vol] 9.2 fL Normal 6.2-12.0 [facility] Comment on above: Performed By: #### L 100.0100, L500.2500 ####[facility] [address] [place], [address] Platelets (Bld) [#/Vol] 330 10*3/uL Normal 150-450 [facility] Comment on above: Performed By: #### L 100.0100, L500.2500 ####[facility] [address] [place], [address] RBC (Bld) [#/Vol] 4.27 10*6/uL Normal 4.2-5.4 [facility] Comment on above: Performed By: #### L 100.0100, L500.2500 ####[facility] [address] [place], [address] RDW SD 50.4 fl High 35.1-43.9 [facility] Comment on above: Performed By: #### L 100.0100, L500.2500 ####[facility] [address] [place], [address] WBC (Bld) [#/Vol] 9.5 10*3/uL Normal 4.4-11.0 [facility] Comment on above: Performed By: #### L 100.0100, L500.2500 ####[facility] [address] [place], [address] Fibrinogenon 03-04-2025 FIBRINOGEN 590 mg/dl High 203-444 [facility] Comment on above: Performed By: #### L 300.3900, L300.4310, L300.4700 ####[facility] [address] [place], [address] Partial Thromboplast Timeon 03-04-2025 aPTT Coag (Bld) [Time] 21.7 s Low 24.1-36.2 [facility] Comment on above: Performed By: #### L 300.3900, L300.4310, L300.4700 ####[facility] [address] [place], [address] Prothrombin Time w/INRon INR Coag (PPP) [Relative time] 1.5 {INR} Normal [facility] Comment on above: Performed By: #### L 300.3900, L300.4310, L300.4700 ####[facility] [address] [place], [address] PT Coag (PPP) [Time] 18.7 s High 11.7-14.9 [facility] Comment on above: Performed By: #### L 300.3900, L300.4310, L300.4700 ####[facility] [address] [place], [address] Transvaginal Non-on 03-04-2025 Transvaginal Non- Normal [facility] Basic Metabolic Profile (BMP )on 03-03-2025 BUN/CRE 25.0 RATIO High 10-20 [facility] Comment on above: Performed By: #### L 100.0100, L500.2500 ####[facility] [address] [place], [address] Calcium [Mass/Vol] 9.2 mg/dL Normal 7.6-11.0 [facility] Comment on above: Performed By: #### L 100.0100, L500.2500 ####[facility] [address] [place], [address] Chloride [Moles/Vol] 101 mmol/L Normal 98-108 [facility] Comment on above: Performed By: #### L 100.0100, L500.2500 ####[facility] [address] [place], [address] CO2 [Moles/Vol] 18.1 mmol/L Low 21.0-32.0 [facility] Comment on above: Performed By: #### L 100.0100, L500.2500 ####[facility] [address] [place], [address] Creatinine [Mass/Vol] 1.78 mg/dL High 0.70-1.20 [facility] Comment on above: Performed By: #### L 100.0100, L500.2500 ####[facility] [address] [place], [address] ECRCL 31.67 ml/min Low 50-250 [facility] Comment on above: Performed By: #### L 100.0100, L500.2500 ####[facility] [address] [place], [address] GAP 20 High 5-15 [facility] Comment on above: Performed By: #### L 100.0100, L500.2500 ####[facility] [address] [place], [address] GFR/1.73 sq M.predicted among non-blacks MDRD (S/P/Bld) [Vol rate/Area] 29 mL/min/{1.73_m2} Low >60 [facility] Comment on above: Result Comment: mL/m in/1.73m2 CKD-EPI Creatinine Equation (2020) Performed By: #### L 100.0100, L500.2500 ####[facility] [address] [place], [address] Glucose [Mass/Vol] 159 mg/dL High 70-99 [facility] Comment on above: Performed By: #### L 100.0100, L500.2500 ####[facility] [address] [place], [address] Potassium [Moles/Vol] 3.3 mmol/L Normal 3.3-5.1 [facility] Comment on above: Performed By: #### L 100.0100, L500.2500 ####[facility] [address] [place], [address] Sodium [Moles/Vol] 140 mmol/L Normal 133-145 [facility] Comment on above: Performed By: #### L 100.0100, L500.2500 ####[facility] [address] [place], [address] Urea nitrogen [Mass/Vol] 45 mg/dL High 4-19 [facility] Comment on above: Performed By: #### L 100.0100, L500.2500 ####[facility] [address] [place], [address] Bedside Glucoseon 03-03-2025 FINGERSTICK GLU 162 mg/dL High 74-106 [facility] Comment on above: Result Comment: VI GEMENT OF PATIENT CARE PER NURSING PROTOCOL Performed By: #### L 501.080 ####[facility] [address] [place], [address] FINGERSTICK GLU 165 mg/dL High 74-106 [facility] Comment on above: Result Comment: Dr Shawn padilla FollowedInsulin GivenMANAGEMENT OF PATIENT CARE PER NURSING PROTOCOL Performed By: #### L 501.080 ####[facility] [address] [place], [address] FINGERSTICK GLU 145 mg/dL High 74-106 [facility] Comment on above: Result Comment: VI GEMENT OF PATIENT CARE PER NURSING PROTOCOL Performed By: #### L 501.080 ####[facility] [address] [place], [address] CBC W/Diff, Automatedon 06-0 Absolute Lymph 1.20 X10 3/uL Normal 0.83-4.51 [facility] Comment on above: Performed By: #### L 100.0100, L500.2500 ####[facility] [address] [place], [address] Absolute Neut 7.5 X10 3/uL Normal 2.0-7.7 [facility] Comment on above: Performed By: #### L 100.0100, L500.2500 ####[facility] [address] [place], [address] Basophils/100 WBC (Bld) 1.0 % Normal 0-1 [facility] Comment on above: Performed By: #### L 100.0100, L500.2500 ####[facility] [address] [place], [address] Eosinophils/100 WBC (Bld) 4.1 % Normal 0-5 [facility] Comment on above: Performed By: #### L 100.0100, L500.2500 ####[facility] [address] [place], [address] Erythrocyte distribution width (RBC) [Ratio] 19.5 % High 11.6-14.6 [facility] Comment on above: Performed By: #### L 100.0100, L500.2500 ####[facility] [address] [place], [address] Hematocrit (Bld) [Volume fraction] 30.3 % Low 37-47 [facility] Comment on above: Performed By: #### L 100.0100, L500.2500 ####[facility] [address] [place], [address] Hemoglobin (Bld) [Mass/Vol] 8.9 g/dL Low 12.0-15.0 [facility] Comment on above: Performed By: #### L 100.0100, L500.2500 ####[facility] [address] [place], [address] IG% 0.500 Normal 0.0-0.9 [facility] Comment on above: Result Comment: IG% - Immature Granulocytes (promyelocytes, myelocytes andmetamyelocytes) > 1% indicates that a LEFT SHIFT is Present. Performed By: #### L 100.0100, L500.2500 ####[facility] [address] [place], [address] Lymphocytes/100 WBC (Bld) 11.7 % Low 19-41 [facility] Comment on above: Performed By: #### L 100.0100, L500.2500 ####[facility] [address] [place], [address] MCH (RBC) [Entitic mass] 21.8 pg Low 27.0-32.0 [facility] Comment on above: Performed By: #### L 100.0100, L500.2500 ####[facility] [address] [place], [address] MCHC (RBC) [Mass/Vol] 29.4 g/dL Low 32-36 [facility] Comment on above: Performed By: #### L 100.0100, L500.2500 ####[facility] [address] [place], [address] MCV (RBC) [Entitic vol] 74.3 fL Low 81-99 [facility] Comment on above: Performed By: #### L 100.0100, L500.2500 ####[facility] [address] [place], [address] Monocytes/100 WBC (Bld) 10.0 % Normal 0-10 [facility] Comment on above: Performed By: #### L 100.0100, L500.2500 ####[facility] [address] [place], [address] Neutrophils/100 WBC (Bld) 72.7 % High 47-70 [facility] Comment on above: Performed By: #### L 100.0100, L500.2500 ####[facility] [address] [place], [address] Nucleated RBC (Bld) [#/Vol] 0 10*3/uL Normal 0-5 [facility] Comment on above: Performed By: #### L 100.0100, L500.2500 ####[facility] [address] [place], [address] Platelet mean volume (Bld) [Entitic vol] 9.1 fL Normal 6.2-12.0 [facility] Comment on above: Performed By: #### L 100.0100, L500.2500 ####[facility] [address] [place], [address] Platelets (Bld) [#/Vol] 365 10*3/uL Normal 150-450 [facility] Comment on above: Performed By: #### L 100.0100, L500.2500 ####[facility] [address] [place], [address] RBC (Bld) [#/Vol] 4.08 10*6/uL Low 4.2-5.4 [facility] Comment on above: Performed By: #### L 100.0100, L500.2500 ####[facility] [address] [place], [address] RDW SD 51.2 fl High 35.1-43.9 [facility] Comment on above: Performed By: #### L 100.0100, L500.2500 ####[facility] [address] [place], [address] WBC (Bld) [#/Vol] 10.3 10*3/uL Normal 4.4-11.0 [facility] Comment on above: Performed By: #### L 100.0100, L500.2500 ####[facility] [address] [place], [address] ENTERIC PATHOGEN PANEL STOOL on 03-03-2025 EP PANEL Normal [facility] Comment on above: Performed By: #### M 100.0605, M100.6796, M100.6795, M100.637 ####[facility] [address] [place], [address] HH, Hemoglobin AND Hematocri ton 03-03-2025 Hematocrit (Bld) [Volume fraction] 34.1 % Low 37-47 [facility] Comment on above: Performed By: #### L 100.0600 ####[facility] [address] [place], [address] Hemoglobin (Bld) [Mass/Vol] 10.0 g/dL Low 12.0-15.0 [facility] Comment on above: Performed By: #### L 100.0600 ####[facility] [address] [place], [address] Abdomen/Pel W ORAL Cont Only on 03-02-2025 Abdomen/Pel W ORAL Cont Only Normal [facility] Basic Metabolic Profile (BMP )on 03-02-2025 BUN/CRE 21.3 RATIO High 10-20 [facility] Comment on above: Performed By: #### L 100.0100, L500.2500 ####[facility] [address] [place], [address] Calcium [Mass/Vol] 9.2 mg/dL Normal 7.6-11.0 [facility] Comment on above: Performed By: #### L 100.0100, L500.2500 ####[facility] [address] [place], [address] Chloride [Moles/Vol] 101 mmol/L Normal 98-108 [facility] Comment on above: Performed By: #### L 100.0100, L500.2500 ####[facility] [address] [place], [address] CO2 [Moles/Vol] 15.4 mmol/L Low 21.0-32.0 [facility] Comment on above: Performed By: #### L 100.0100, L500.2500 ####[facility] [address] [place], [address] Creatinine [Mass/Vol] 1.67 mg/dL High 0.70-1.20 [facility] Comment on above: Performed By: #### L 100.0100, L500.2500 ####[facility] [address] [place], [address] ECRCL 33.77 ml/min Low 50-250 [facility] Comment on above: Performed By: #### L 100.0100, L500.2500 ####[facility] [address] [place], [address] GAP 25 High 5-15 [facility] Comment on above: Performed By: #### L 100.0100, L500.2500 ####[facility] [address] [place], [address] GFR/1.73 sq M.predicted among non-blacks MDRD (S/P/Bld) [Vol rate/Area] 32 mL/min/{1.73_m2} Low >60 [facility] Comment on above: Result Comment: mL/m in/1.73m2 CKD-EPI Creatinine Equation (2020) Performed By: #### L 100.0100, L500.2500 ####[facility] [address] [place], [address] Glucose [Mass/Vol] 144 mg/dL High 70-99 [facility] Comment on above: Performed By: #### L 100.0100, L500.2500 ####[facility] [address] [place], [address] Potassium [Moles/Vol] 3.6 mmol/L Normal 3.3-5.1 [facility] Comment on above: Performed By: #### L 100.0100, L500.2500 ####[facility] [address] [place], [address] Sodium [Moles/Vol] 142 mmol/L Normal 133-145 [facility] Comment on above: Performed By: #### L 100.0100, L500.2500 ####[facility] [address] [place], [address] Urea nitrogen [Mass/Vol] 36 mg/dL High 4-19 [facility] Comment on above: Performed By: #### L 100.0100, L500.2500 ####[facility] [address] [place], [address] Bedside Glucoseon --2024 FINGERSTICK GLU 165 mg/dL High 74-106 [facility] Comment on above: Result Comment: VI GEMENT OF PATIENT CARE PER NURSING PROTOCOL Performed By: #### L 501.080 ####[facility] [address] [place], [address] FINGERSTICK GLU 167 mg/dL High 74-106 [facility] Comment on above: Result Comment: VI GEMENT OF PATIENT CARE PER NURSING PROTOCOL Performed By: #### L 501.080 ####[facility] [address] [place], [address] FINGERSTICK GLU 139 mg/dL High 74-106 [facility] Comment on above: Result Comment: VI GEMENT OF PATIENT CARE PER NURSING PROTOCOL Performed By: #### L 501.080 ####[facility] [address] [place], [address] CBC W/Diff, Automatedon 06-0 Absolute Lymph 1.02 X10 3/uL Normal 0.83-4.51 [facility] Comment on above: Performed By: #### L 100.0100, L500.2500 ####[facility] [address] [place], [address] Absolute Neut 8.8 X10 3/uL High 2.0-7.7 [facility] Comment on above: Performed By: #### L 100.0100, L500.2500 ####[facility] [address] [place], [address] Basophils/100 WBC (Bld) 1.0 % Normal 0-1 [facility] Comment on above: Performed By: #### L 100.0100, L500.2500 ####[facility] [address] [place], [address] Eosinophils/100 WBC (Bld) 1.9 % Normal 0-5 [facility] Comment on above: Performed By: #### L 100.0100, L500.2500 ####[facility] [address] [place], [address] Erythrocyte distribution width (RBC) [Ratio] 19.6 % High 11.6-14.6 [facility] Comment on above: Performed By: #### L 100.0100, L500.2500 ####[facility] [address] [place], [address] Hematocrit (Bld) [Volume fraction] 30.6 % Low 37-47 [facility] Comment on above: Performed By: #### L 100.0100, L500.2500 ####[facility] [address] [place], [address] Hemoglobin (Bld) [Mass/Vol] 8.9 g/dL Low 12.0-15.0 [facility] Comment on above: Performed By: #### L 100.0100, L500.2500 ####[facility] [address] [place], [address] IG% 0.500 Normal 0.0-0.9 [facility] Comment on above: Result Comment: IG% - Immature Granulocytes (promyelocytes, myelocytes andmetamyelocytes) > 1% indicates that a LEFT SHIFT is Present. Performed By: #### L 100.0100, L500.2500 ####[facility] [address] [place], [address] Lymphocytes/100 WBC (Bld) 9.2 % Low 19-41 [facility] Comment on above: Performed By: #### L 100.0100, L500.2500 ####[facility] [address] [place], [address] MCH (RBC) [Entitic mass] 21.6 pg Low 27.0-32.0 [facility] Comment on above: Performed By: #### L 100.0100, L500.2500 ####[facility] [address] [place], [address] MCHC (RBC) [Mass/Vol] 29.1 g/dL Low 32-36 [facility] Comment on above: Performed By: #### L 100.0100, L500.2500 ####[facility] [address] [place], [address] MCV (RBC) [Entitic vol] 74.3 fL Low 81-99 [facility] Comment on above: Performed By: #### L 100.0100, L500.2500 ####[facility] [address] [place], [address] Monocytes/100 WBC (Bld) 8.5 % Normal 0-10 [facility] Comment on above: Performed By: #### L 100.0100, L500.2500 ####[facility] [address] [place], [address] Neutrophils/100 WBC (Bld) 78.9 % High 47-70 [facility] Comment on above: Performed By: #### L 100.0100, L500.2500 ####[facility] [address] [place], [address] Nucleated RBC (Bld) [#/Vol] 0 10*3/uL Normal 0-5 [facility] Comment on above: Performed By: #### L 100.0100, L500.2500 ####[facility] [address] [place], [address] Platelet mean volume (Bld) [Entitic vol] 9.5 fL Normal 6.2-12.0 [facility] Comment on above: Performed By: #### L 100.0100, L500.2500 ####[facility] [address] [place], [address] Platelets (Bld) [#/Vol] 416 10*3/uL Normal 150-450 [facility] Comment on above: Performed By: #### L 100.0100, L500.2500 ####[facility] [address] [place], [address] RBC (Bld) [#/Vol] 4.12 10*6/uL Low 4.2-5.4 [facility] Comment on above: Performed By: #### L 100.0100, L500.2500 ####[facility] [address] [place], [address] RDW SD 52.1 fl High 35.1-43.9 [facility] Comment on above: Performed By: #### L 100.0100, L500.2500 ####[facility] [address] [place], [address] WBC (Bld) [#/Vol] 11.1 10*3/uL High 4.4-11.0 [facility] Comment on above: Performed By: #### L 100.0100, L500.2500 ####[facility] [address] [place], [address] CDIFF (PCR)on 03-02-2025 CDIFF Normal [facility] Comment on above: Performed By: #### M 100.0605, M100.6796, M100.6795, M100.637 ####[facility] [address] [place], [address] Clostridium Diff Toxin/Agon 03-02-2025 CDIFF (EIA) Normal [facility] Comment on above: Performed By: #### M 100.0605, M100.6796, M100.6795, M100.637 ####[facility] [address] [place], [address] Stool Lactoferrin/WBCon 06-0 WBCST Is the patient receiving laxatives? N New/unexplained onset of 3 or more stools in past 24 hrs? Y Normal Reference Range = Negative Fecal WBC Lactoferrin A Positive: Fecal WBC Lactoferrin present A Normal [facility] Comment on above: Performed By: #### M 100.0605, M100.6796, M100.6795, M100.637 ####[facility] [address] [place], [address] Abdomen Single View (Portabl e)on 03-01-2025 Abdomen Single View (Portable) Normal [facility] Basic Metabolic Profile (BMP )on 03-01-2025 BUN/CRE 24.0 RATIO High 10-20 [facility] Comment on above: Performed By: #### L 500.2500, L503.6005 ####[facility] [address] [place], [address] Calcium [Mass/Vol] 8.6 mg/dL Normal 7.6-11.0 [facility] Comment on above: Performed By: #### L 500.2500, L503.6005 ####[facility] [address] [place], [address] Chloride [Moles/Vol] 101 mmol/L Normal 98-108 [facility] Comment on above: Performed By: #### L 500.2500, L503.6005 ####[facility] [address] [place], [address] CO2 [Moles/Vol] 12.3 mmol/L Low 21.0-32.0 [facility] Comment on above: Performed By: #### L 500.2500, L503.6005 ####[facility] [address] [place], [address] Creatinine [Mass/Vol] 2.21 mg/dL High 0.70-1.20 [facility] Comment on above: Performed By: #### L 500.2500, L503.6005 ####[facility] [address] [place], [address] ECRCL 25.59 ml/min Low 50-250 [facility] Comment on above: Performed By: #### L 500.2500, L503.6005 ####[facility] [address] [place], [address] GAP 29 High 5-15 [facility] Comment on above: Performed By: #### L 500.2500, L503.6005 ####[facility] [address] [place], [address] GFR/1.73 sq M.predicted among non-blacks MDRD (S/P/Bld) [Vol rate/Area] 23 mL/min/{1.73_m2} Low >60 [facility] Comment on above: Result Comment: mL/m in/1.73m2 CKD-EPI Creatinine Equation (2020) Performed By: #### L 500.2500, L5.6005 ####[facility] [address] [place], [address] Glucose [Mass/Vol] 160 mg/dL High 70-99 [facility] Comment on above: Performed By: #### L 500.2500, L5.6005 ####[facility] [address] [place], [address] Potassium [Moles/Vol] 3.7 mmol/L Normal 3.3-5.1 [facility] Comment on above: Performed By: #### L 500.2500, L503.6005 ####[facility] [address] [place], [address] Sodium [Moles/Vol] 142 mmol/L Normal 133-145 [facility] Comment on above: Performed By: #### L 500.2500, L503.6005 ####[facility] [address] [place], [address] Urea nitrogen [Mass/Vol] 53 mg/dL High 4-19 [facility] Comment on above: Performed By: #### L 500.2500, L503.6005 ####[facility] [address] [place], [address] BUN/CRE 24.5 RATIO High 10-20 [facility] Comment on above: Performed By: #### L 100.0100, L500.2500 ####[facility] [address] [place], [address] Calcium [Mass/Vol] 8.5 mg/dL Normal 7.6-11.0 [facility] Comment on above: Performed By: #### L 100.0100, L500.2500 ####[facility] [address] [place], [address] Chloride [Moles/Vol] 101 mmol/L Normal 98-108 [facility] Comment on above: Performed By: #### L 100.0100, L500.2500 ####[facility] [address] [place], [address] CO2 [Moles/Vol] 10.8 mmol/L Low 21.0-32.0 [facility] Comment on above: Performed By: #### L 100.0100, L500.2500 ####[facility] [address] [place], [address] Creatinine [Mass/Vol] 2.11 mg/dL High 0.70-1.20 [facility] Comment on above: Performed By: #### L 100.0100, L500.2500 ####[facility] [address] [place], [address] ECRCL 26.80 ml/min Low 50-250 [facility] Comment on above: Performed By: #### L 100.0100, L500.2500 ####[facility] [address] [place], [address] GAP 30 High 5-15 [facility] Comment on above: Performed By: #### L 100.0100, L500.2500 ####[facility] [address] [place], [address] GFR/1.73 sq M.predicted among non-blacks MDRD (S/P/Bld) [Vol rate/Area] 24 mL/min/{1.73_m2} Low >60 [facility] Comment on above: Result Comment: mL/m in/1.73m2 CKD-EPI Creatinine Equation (2020) Performed By: #### L 100.0100, L500.2500 ####[facility] [address] [place], [address] Glucose [Mass/Vol] 165 mg/dL High 70-99 [facility] Comment on above: Performed By: #### L 100.0100, L500.2500 ####[facility] [address] [place], [address] Potassium [Moles/Vol] 3.8 mmol/L Normal 3.3-5.1 [facility] Comment on above: Performed By: #### L 100.0100, L500.2500 ####[facility] [address] [place], [address] Sodium [Moles/Vol] 142 mmol/L Normal 133-145 [facility] Comment on above: Performed By: #### L 100.0100, L500.2500 ####[facility] [address] [place], [address] Urea nitrogen [Mass/Vol] 52 mg/dL High 4-19 [facility] Comment on above: Performed By: #### L 100.0100, L500.2500 ####[facility] [address] [place], [address] Bedside Glucoseon 03-01-2025 FINGERSTICK GLU 154 mg/dL High 74-106 [facility] Comment on above: Result Comment: VI MONTEJO OF PATIENT CARE PER NURSING PROTOCOL Performed By: #### L 501.080 ####[facility] [address] [place], [address] CBC W/Diff, Automatedon 06-0 5-2025 Absolute Lymph 1.06 X10 3/uL Normal 0.83-4.51 [facility] Comment on above: Performed By: #### L 100.0100, L500.2500 ####[facility] [address] [place], [address] Absolute Neut 11.1 X10 3/uL High 2.0-7.7 [facility] Comment on above: Performed By: #### L 100.0100, L500.2500 ####[facility] [address] [place], [address] Basophils/100 WBC (Bld) 0.7 % Normal 0-1 [facility] Comment on above: Performed By: #### L 100.0100, L500.2500 ####[facility] [address] [place], [address] Eosinophils/100 WBC (Bld) 0.4 % Normal 0-5 [facility] Comment on above: Performed By: #### L 100.0100, L500.2500 ####[facility] [address] [place], [address] Erythrocyte distribution width (RBC) [Ratio] 19.2 % High 11.6-14.6 [facility] Comment on above: Performed By: #### L 100.0100, L500.2500 ####[facility] [address] [place], [address] Hematocrit (Bld) [Volume fraction] 30.4 % Low 37-47 [facility] Comment on above: Performed By: #### L 100.0100, L500.2500 ####[facility] [address] [place], [address] Hemoglobin (Bld) [Mass/Vol] 8.7 g/dL Low 12.0-15.0 [facility] Comment on above: Performed By: #### L 100.0100, L500.2500 ####[facility] [address] [place], [address] IG% 0.700 Normal 0.0-0.9 [facility] Comment on above: Result Comment: IG% - Immature Granulocytes (promyelocytes, myelocytes andmetamyelocytes) > 1% indicates that a LEFT SHIFT is Present. Performed By: #### L 100.0100, L500.2500 ####[facility] [address] [place], [address] Lymphocytes/100 WBC (Bld) 7.9 % Low 19-41 [facility] Comment on above: Performed By: #### L 100.0100, L500.2500 ####[facility] [address] [place], [address] MCH (RBC) [Entitic mass] 21.8 pg Low 27.0-32.0 [facility] Comment on above: Performed By: #### L 100.0100, L500.2500 ####[facility] [address] [place], [address] MCHC (RBC) [Mass/Vol] 28.6 g/dL Low 32-36 [facility] Comment on above: Performed By: #### L 100.0100, L500.2500 ####[facility] [address] [place], [address] MCV (RBC) [Entitic vol] 76.0 fL Low 81-99 [facility] Comment on above: Performed By: #### L 100.0100, L500.2500 ####[facility] [address] [place], [address] Monocytes/100 WBC (Bld) 6.7 % Normal 0-10 [facility] Comment on above: Performed By: #### L 100.0100, L500.2500 ####[facility] [address] [place], [address] Neutrophils/100 WBC (Bld) 83.6 % High 47-70 [facility] Comment on above: Performed By: #### L 100.0100, L500.2500 ####[facility] [address] [place], [address] Nucleated RBC (Bld) [#/Vol] 0 10*3/uL Normal 0-5 [facility] Comment on above: Performed By: #### L 100.0100, L500.2500 ####[facility] [address] [place], [address] Platelet mean volume (Bld) [Entitic vol] 9.8 fL Normal 6.2-12.0 [facility] Comment on above: Performed By: #### L 100.0100, L500.2500 ####[facility] [address] [place], [address] Platelets (Bld) [#/Vol] 464 10*3/uL High 150-450 [facility] Comment on above: Performed By: #### L 100.0100, L500.2500 ####[facility] [address] [place], [address] RBC (Bld) [#/Vol] 4.00 10*6/uL Low 4.2-5.4 [facility] Comment on above: Performed By: #### L 100.0100, L500.2500 ####[facility] [address] [place], [address] RDW SD 52.8 fl High 35.1-43.9 [facility] Comment on above: Performed By: #### L 100.0100, L500.2500 ####[facility] [address] [place], [address] WBC (Bld) [#/Vol] 13.3 10*3/uL High 4.4-11.0 [facility] Comment on above: Performed By: #### L 100.0100, L500.2500 ####[facility] [address] [place], [address] Lactic Acidon 03-01-2025 Lactate [Moles/Vol] mmol/L Normal 0.0-2.0 [facility] Comment on above: Order Comment: Y Performed By: #### L 500.2500, L503.6005 ####[facility] [address] [place], [address] Basic Metabolic Profile (BMP )on 02-28-2025 BUN/CRE 27.8 RATIO High 10-20 [facility] Comment on above: Performed By: #### L 500.2500, L100.0100 ####[facility] [address] [place], [address] Calcium [Mass/Vol] 8.7 mg/dL Normal 7.6-11.0 [facility] Comment on above: Performed By: #### L 500.2500, L100.0100 ####[facility] [address] [place], [address] Chloride [Moles/Vol] 101 mmol/L Normal 98-108 [facility] Comment on above: Performed By: #### L 500.2500, L100.0100 ####[facility] [address] [place], [address] CO2 [Moles/Vol] 18.2 mmol/L Low 21.0-32.0 [facility] Comment on above: Performed By: #### L 500.2500, L100.0100 ####[facility] [address] [place], [address] Creatinine [Mass/Vol] 1.57 mg/dL High 0.70-1.20 [facility] Comment on above: Performed By: #### L 500.2500, L100.0100 ####[facility] [address] [place], [address] ECRCL 36.63 ml/min Low 50-250 [facility] Comment on above: Performed By: #### L 500.2500, L100.0100 ####[facility] [address] [place], [address] GAP 19 High 5-15 [facility] Comment on above: Performed By: #### L 500.2500, L100.0100 ####[facility] [address] [place], [address] GFR/1.73 sq M.predicted among non-blacks MDRD (S/P/Bld) [Vol rate/Area] 34 mL/min/{1.73_m2} Low >60 [facility] Comment on above: Result Comment: mL/m in/1.73m2 CKD-EPI Creatinine Equation (2020) Performed By: #### L 500.2500, L100.0100 ####[facility] [address] [place], [address] Glucose [Mass/Vol] 91 mg/dL Normal 70-99 [facility] Comment on above: Performed By: #### L 500.2500, L100.0100 ####[facility] [address] [place], [address] Potassium [Moles/Vol] 4.1 mmol/L Normal 3.3-5.1 [facility] Comment on above: Performed By: #### L 500.2500, L100.0100 ####[facility] [address] [place], [address] Sodium [Moles/Vol] 139 mmol/L Normal 133-145 [facility] Comment on above: Performed By: #### L 500.2500, L100.0100 ####[facility] [address] [place], [address] Urea nitrogen [Mass/Vol] 44 mg/dL High 4-19 [facility] Comment on above: Performed By: #### L 500.2500, L100.0100 ####[facility] [address] [place], [address] Bedside Glucoseon 02-28-2025 FINGERSTICK GLU 157 mg/dL High 74-106 [facility] Comment on above: Result Comment: VI GEMENT OF PATIENT CARE PER NURSING PROTOCOL Performed By: #### L 501.080 ####[facility] [address] [place], [address] FINGERSTICK GLU 115 mg/dL High 74-106 [facility] Comment on above: Result Comment: VI GEMENT OF PATIENT CARE PER NURSING PROTOCOL Performed By: #### L 501.080 ####[facility] [address] [place], [address] FINGERSTICK GLU 88 mg/dL Normal 74-106 [facility] Comment on above: Result Comment: VI GEMENT OF PATIENT CARE PER NURSING PROTOCOL Performed By: #### L 501.080 ####[facility] [address] [place], [address] FINGERSTICK GLU 96 mg/dL Normal 74-106 [facility] Comment on above: Result Comment: VI GEMENT OF PATIENT CARE PER NURSING PROTOCOL Performed By: #### L 501.080 ####[facility] [address] [place], [address] [facility] Base excess Calc (Bld) [Moles/Vol] -8 mmol/L Low -2 to +2 [facility] Comment on above: Order Comment: Resul ts manually entered by BRIAN and verified by EBOLESon 02/28/2025 @ 1538 Performed By: #### L 9000.0800 ####[facility] [address] [place], [address] CO2 [Moles/Vol] 19 mmol/L Normal [facility] Comment on above: Order Comment: Resul ts manually entered by BRIAN and verified by EBOLESon 02/28/2025 @ 1538 Performed By: #### L 9000.0800 ####[facility] [address] [place], [address] SO2 91 Low 95-99 [facility] Comment on above: Order Comment: Resul ts manually entered by BRIAN and verified by EBOLESon 02/28/2025 @ 1538 Performed By: #### L 9000.0800 ####[facility] [address] [place], [address] DANIEL TEST Positive Normal [facility] Comment on above: Order Comment: Resul ts manually entered by BRIAN and verified by EBOLESon 02/28/2025 @ 1538 Performed By: #### L 9000.0800 ####[facility] [address] [place], [address] Blood Gas Type ART Normal [facility] Comment on above: Order Comment: Resul ts manually entered by BRIAN and verified by EBOLESon 02/28/2025 @ 1538 Performed By: #### L 9000.0800 ####[facility] [address] [place], [address] Comment SBT X1 HR Normal [facility] Comment on above: Order Comment: Resul ts manually entered by BRIAN and verified by EBOLESon 02/28/2025 @ 1538 Performed By: #### L 9000.0800 ####[facility] [address] [place], [address] FI02 21.0 Normal [facility] Comment on above: Order Comment: Resul ts manually entered by BRIAN and verified by EBOLESon 02/28/2025 @ 1538 Performed By: #### L 9000.0800 ####[facility] [address] [place], [address] HCO3 (Bld) [Moles/Vol] 17.8 mmol/L Low 22-26 [facility] Comment on above: Order Comment: Resul ts manually entered by BRIAN and verified by EBOLESon 02/28/2025 @ 1538 Performed By: #### L 9000.0800 ####[facility] [address] [place], [address] Mode SPONT Normal [facility] Comment on above: Order Comment: Resul ts manually entered by BRIAN and verified by EBOLESon 02/28/2025 @ 1538 Performed By: #### L 9000.0800 ####[facility] [address] [place], [address] pCO2 31.4 mmHg Low 35-45 [facility] Comment on above: Order Comment: Resul ts manually entered by BRIAN and verified by EBOLESon 02/28/2025 @ 1538 Performed By: #### L 9000.0800 ####[facility] [address] [place], [address] PEEP 5 Normal [facility] Comment on above: Order Comment: Resul ts manually entered by BRIAN and verified by EBOLESon 02/28/2025 @ 1538 Performed By: #### L 9000.0800 ####[facility] [address] [place], [address] pH (Bld) 7.36 [pH] Normal 7.35-7.45 [facility] Comment on above: Order Comment: Resul ts manually entered by BRIAN and verified by EBOLESon 02/28/2025 @ 1538 Performed By: #### L 9000.0800 ####[facility] [address] [place], [address] PO2 62 mmHG Low 75-100 [facility] Comment on above: Order Comment: Resul ts manually entered by BRIAN and verified by [employer] 02/28/2025 @ 1538 Performed By: #### L 9000.0800 ####[facility] [address] [place], [address] PS 5 Normal [facility] Comment on above: Order Comment: Resul ts manually entered by BRIAN and verified by [employer] 02/28/2025 @ 1538 Performed By: #### L 9000.0800 ####[facility] [address] [place], [address] Results To NISHANT Normal [facility] Comment on above: Order Comment: Resul ts manually entered by BRIAN and verified by [employer] 02/28/2025 @ 1538 Performed By: #### L 9000.0800 ####[facility] [address] [place], [address] SITE R RADIAL Normal [facility] Comment on above: Order Comment: Resul ts manually entered by BRIAN and verified by [employer] 02/28/2025 @ 1538 Performed By: #### L 9000.0800 ####[facility] [address] [place], [address] CBC W/Diff, Automatedon 06-0 Absolute Lymph 0.89 X10 3/uL Normal 0.83-4.51 [facility] Comment on above: Performed By: #### L 500.2500, L100.0100 ####[facility] [address] [place], [address] Absolute Neut 6.5 X10 3/uL Normal 2.0-7.7 [facility] Comment on above: Performed By: #### L 500.2500, L100.0100 ####[facility] [address] [place], [address] Basophils/100 WBC (Bld) 1.2 % High 0-1 [facility] Comment on above: Performed By: #### L 500.2500, L100.0100 ####[facility] [address] [place], [address] Eosinophils/100 WBC (Bld) 2.0 % Normal 0-5 [facility] Comment on above: Performed By: #### L 500.2500, L100.0100 ####[facility] [address] [place], [address] Erythrocyte distribution width (RBC) [Ratio] 18.8 % High 11.6-14.6 [facility] Comment on above: Performed By: #### L 500.2500, L100.0100 ####[facility] [address] [place], [address] Hematocrit (Bld) [Volume fraction] 30.1 % Low 37-47 [facility] Comment on above: Performed By: #### L 500.2500, L100.0100 ####[facility] [address] [place], [address] Hemoglobin (Bld) [Mass/Vol] 8.8 g/dL Low 12.0-15.0 [facility] Comment on above: Performed By: #### L 500.2500, L100.0100 ####[facility] [address] [place], [address] IG% 0.500 Normal 0.0-0.9 [facility] Comment on above: Result Comment: IG% - Immature Granulocytes (promyelocytes, myelocytes andmetamyelocytes) > 1% indicates that a LEFT SHIFT is Present. Performed By: #### L 500.2500, L100.0100 ####[facility] [address] [place], [address] Lymphocytes/100 WBC (Bld) 10.5 % Low 19-41 [facility] Comment on above: Performed By: #### L 500.2500, L100.0100 ####[facility] [address] [place], [address] MCH (RBC) [Entitic mass] 21.8 pg Low 27.0-32.0 [facility] Comment on above: Performed By: #### L 500.2500, L100.0100 ####[facility] [address] [place], [address] MCHC (RBC) [Mass/Vol] 29.2 g/dL Low 32-36 [facility] Comment on above: Performed By: #### L 500.2500, L100.0100 ####[facility] [address] [place], [address] MCV (RBC) [Entitic vol] 74.5 fL Low 81-99 [facility] Comment on above: Performed By: #### L 500.2500, L100.0100 ####[facility] [address] [place], [address] Monocytes/100 WBC (Bld) 9.0 % Normal 0-10 [facility] Comment on above: Performed By: #### L 500.2500, L100.0100 ####[facility] [address] [place], [address] Neutrophils/100 WBC (Bld) 76.8 % High 47-70 [facility] Comment on above: Performed By: #### L 500.2500, L100.0100 ####[facility] [address] [place], [address] Nucleated RBC (Bld) [#/Vol] 0 10*3/uL Normal 0-5 [facility] Comment on above: Performed By: #### L 500.2500, L100.0100 ####[facility] [address] [place], [address] Platelet mean volume (Bld) [Entitic vol] 9.6 fL Normal 6.2-12.0 [facility] Comment on above: Performed By: #### L 500.2500, L100.0100 ####[facility] [address] [place], [address] Platelets (Bld) [#/Vol] 399 10*3/uL Normal 150-450 [facility] Comment on above: Performed By: #### L 500.2500, L100.0100 ####[facility] [address] [place], [address] RBC (Bld) [#/Vol] 4.04 10*6/uL Low 4.2-5.4 [facility] Comment on above: Performed By: #### L 500.2500, L100.0100 ####[facility] [address] [place], [address] RDW SD 50.6 fl High 35.1-43.9 [facility] Comment on above: Performed By: #### L 500.2500, L100.0100 ####[facility] [address] [place], [address] WBC (Bld) [#/Vol] 8.5 10*3/uL Normal 4.4-11.0 [facility] Comment on above: Performed By: #### L 500.2500, L100.0100 ####[facility] [address] [place], [address] Basic Metabolic Profile (BMP )on 02-27-2025 BUN/CRE 33.3 RATIO High 10-20 [facility] Comment on above: Performed By: #### L 100.0100, L500.2500 ####[facility] [address] [place], [address] Calcium [Mass/Vol] 9.2 mg/dL Normal 7.6-11.0 [facility] Comment on above: Performed By: #### L 100.0100, L500.2500 ####[facility] [address] [place], [address] Chloride [Moles/Vol] 101 mmol/L Normal 98-108 [facility] Comment on above: Performed By: #### L 100.0100, L500.2500 ####[facility] [address] [place], [address] CO2 [Moles/Vol] 20.1 mmol/L Low 21.0-32.0 [facility] Comment on above: Performed By: #### L 100.0100, L500.2500 ####[facility] [address] [place], [address] Creatinine [Mass/Vol] 1.36 mg/dL High 0.70-1.20 [facility] Comment on above: Performed By: #### L 100.0100, L500.2500 ####[facility] [address] [place], [address] ECRCL 42.51 ml/min Low 50-250 [facility] Comment on above: Performed By: #### L 100.0100, L500.2500 ####[facility] [address] [place], [address] GAP 17 High 5-15 [facility] Comment on above: Performed By: #### L 100.0100, L500.2500 ####[facility] [address] [place], [address] GFR/1.73 sq M.predicted among non-blacks MDRD (S/P/Bld) [Vol rate/Area] 40 mL/min/{1.73_m2} Low >60 [facility] Comment on above: Result Comment: mL/m in/1.73m2 CKD-EPI Creatinine Equation (2020) Performed By: #### L 100.0100, L500.2500 ####[facility] [address] [place], [address] Glucose [Mass/Vol] 106 mg/dL High 70-99 [facility] Comment on above: Performed By: #### L 100.0100, L500.2500 ####[facility] [address] [place], [address] Potassium [Moles/Vol] 3.5 mmol/L Normal 3.3-5.1 [facility] Comment on above: Performed By: #### L 100.0100, L500.2500 ####[facility] [address] [place], [address] Sodium [Moles/Vol] 137 mmol/L Normal 133-145 [facility] Comment on above: Performed By: #### L 100.0100, L500.2500 ####[facility] [address] [place], [address] Urea nitrogen [Mass/Vol] 45 mg/dL High 4-19 [facility] Comment on above: Performed By: #### L 100.0100, L500.2500 ####[facility] [address] [place], [address] Bedside Glucoseon 02-27-2025 FINGERSTICK GLU 92 mg/dL Normal 74-106 [facility] Comment on above: Result Comment: VI GEMENT OF PATIENT CARE PER NURSING PROTOCOL Performed By: #### L 501.080 ####[facility] [address] [place], [address] FINGERSTICK GLU 77 mg/dL Normal 74-106 [facility] Comment on above: Result Comment: VI GEMENT OF PATIENT CARE PER NURSING PROTOCOL Performed By: #### L 501.080 ####[facility] [address] [place], [address] FINGERSTICK GLU 88 mg/dL Normal 74-106 [facility] Comment on above: Result Comment: VI GEMENT OF PATIENT CARE PER NURSING PROTOCOL Performed By: #### L 501.080 ####[facility] [address] [place], [address] FINGERSTICK GLU 86 mg/dL Normal 74-106 [facility] Comment on above: Result Comment: VI GEMENT OF PATIENT CARE PER NURSING PROTOCOL Performed By: #### L 501.080 ####[facility] [address] [place], [address] FINGERSTICK GLU 89 mg/dL Normal 74-106 [facility] Comment on above: Result Comment: VI GEMENT OF PATIENT CARE PER NURSING PROTOCOL Performed By: #### L 501.080 ####[facility] [address] [place], [address] CBC W/Diff, Automatedon 06-0 3-2024 Absolute Lymph 1.18 X10 3/uL Normal 0.83-4.51 [facility] Comment on above: Performed By: #### L 100.0100, L500.2500 ####[facility] [address] [place], [address] Absolute Neut 4.8 X10 3/uL Normal 2.0-7.7 [facility] Comment on above: Performed By: #### L 100.0100, L500.2500 ####[facility] [address] [place], [address] Basophils/100 WBC (Bld) 1.0 % Normal 0-1 [facility] Comment on above: Performed By: #### L 100.0100, L500.2500 ####[facility] [address] [place], [address] Eosinophils/100 WBC (Bld) 2.5 % Normal 0-5 [facility] Comment on above: Performed By: #### L 100.0100, L500.2500 ####[facility] [address] [place], [address] Erythrocyte distribution width (RBC) [Ratio] 18.7 % High 11.6-14.6 [facility] Comment on above: Performed By: #### L 100.0100, L500.2500 ####[facility] [address] [place], [address] Hematocrit (Bld) [Volume fraction] 29.0 % Low 37-47 [facility] Comment on above: Performed By: #### L 100.0100, L500.2500 ####[facility] [address] [place], [address] Hemoglobin (Bld) [Mass/Vol] 8.6 g/dL Low 12.0-15.0 [facility] Comment on above: Performed By: #### L 100.0100, L500.2500 ####[facility] [address] [place], [address] IG% 0.400 Normal 0.0-0.9 [facility] Comment on above: Result Comment: IG% - Immature Granulocytes (promyelocytes, myelocytes andmetamyelocytes) > 1% indicates that a LEFT SHIFT is Present. Performed By: #### L 100.0100, L500.2500 ####[facility] [address] [place], [address] Lymphocytes/100 WBC (Bld) 17.2 % Low 19-41 [facility] Comment on above: Performed By: #### L 100.0100, L500.2500 ####[facility] [address] [place], [address] MCH (RBC) [Entitic mass] 21.7 pg Low 27.0-32.0 [facility] Comment on above: Performed By: #### L 100.0100, L500.2500 ####[facility] [address] [place], [address] MCHC (RBC) [Mass/Vol] 29.7 g/dL Low 32-36 [facility] Comment on above: Performed By: #### L 100.0100, L500.2500 ####[facility] [address] [place], [address] MCV (RBC) [Entitic vol] 73.2 fL Low 81-99 [facility] Comment on above: Performed By: #### L 100.0100, L500.2500 ####[facility] [address] [place], [address] Monocytes/100 WBC (Bld) 8.3 % Normal 0-10 [facility] Comment on above: Performed By: #### L 100.0100, L500.2500 ####[facility] [address] [place], [address] Neutrophils/100 WBC (Bld) 70.6 % High 47-70 [facility] Comment on above: Performed By: #### L 100.0100, L500.2500 ####[facility] [address] [place], [address] Nucleated RBC (Bld) [#/Vol] 0 10*3/uL Normal 0-5 [facility] Comment on above: Performed By: #### L 100.0100, L500.2500 ####[facility] [address] [place], [address] Platelet mean volume (Bld) [Entitic vol] 9.6 fL Normal 6.2-12.0 [facility] Comment on above: Performed By: #### L 100.0100, L500.2500 ####[facility] [address] [place], [address] Platelets (Bld) [#/Vol] 428 10*3/uL Normal 150-450 [facility] Comment on above: Performed By: #### L 100.0100, L500.2500 ####[facility] [address] [place], [address] RBC (Bld) [#/Vol] 3.96 10*6/uL Low 4.2-5.4 [facility] Comment on above: Performed By: #### L 100.0100, L500.2500 ####[facility] [address] [place], [address] RDW SD 49.3 fl High 35.1-43.9 [facility] Comment on above: Performed By: #### L 100.0100, L500.2500 ####[facility] [address] [place], [address] WBC (Bld) [#/Vol] 6.9 10*3/uL Normal 4.4-11.0 [facility] Comment on above: Performed By: #### L 100.0100, L500.2500 ####[facility] [address] [place], [address] MR/POSTOP.ANEon 02-27-2025 MR/POSTOP.ANE Normal [facility] Operative Reporton Operative Report Normal [facility] Basic Metabolic Profile (BMP )on 02-26-2025 BUN/CRE 38.2 RATIO High 10-20 [facility] Comment on above: Performed By: #### L 100.0100, L500.2500 ####[facility] [address] [place], [address] Calcium [Mass/Vol] 8.8 mg/dL Normal 7.6-11.0 [facility] Comment on above: Performed By: #### L 100.0100, L500.2500 ####[facility] [address] [place], [address] Chloride [Moles/Vol] 101 mmol/L Normal 98-108 [facility] Comment on above: Performed By: #### L 100.0100, L500.2500 ####[facility] [address] [place], [address] CO2 [Moles/Vol] 21.6 mmol/L Normal 21.0-32.0 [facility] Comment on above: Performed By: #### L 100.0100, L500.2500 ####[facility] [address] [place], [address] Creatinine [Mass/Vol] 1.35 mg/dL High 0.70-1.20 [facility] Comment on above: Performed By: #### L 100.0100, L500.2500 ####[facility] [address] [place], [address] ECRCL 43.09 ml/min Low 50-250 [facility] Comment on above: Performed By: #### L 100.0100, L500.2500 ####[facility] [address] [place], [address] GAP 13 Normal 5-15 [facility] Comment on above: Performed By: #### L 100.0100, L500.2500 ####[facility] [address] [place], [address] GFR/1.73 sq M.predicted among non-blacks MDRD (S/P/Bld) [Vol rate/Area] 41 mL/min/{1.73_m2} Low >60 [facility] Comment on above: Result Comment: mL/m in/1.73m2 CKD-EPI Creatinine Equation (2020) Performed By: #### L 100.0100, L500.2500 ####[facility] [address] [place], [address] Glucose [Mass/Vol] 75 mg/dL Normal 70-99 [facility] Comment on above: Performed By: #### L 100.0100, L500.2500 ####[facility] [address] [place], [address] Potassium [Moles/Vol] 3.4 mmol/L Normal 3.3-5.1 [facility] Comment on above: Performed By: #### L 100.0100, L500.2500 ####[facility] [address] [place], [address] Sodium [Moles/Vol] 136 mmol/L Normal 133-145 [facility] Comment on above: Performed By: #### L 100.0100, L500.2500 ####[facility] [address] [place], [address] Urea nitrogen [Mass/Vol] 52 mg/dL High 4-19 [facility] Comment on above: Performed By: #### L 100.0100, L500.2500 ####[facility] [address] [place], [address] Bedside Glucoseon 02-26-2025 FINGERSTICK GLU 94 mg/dL Normal 74-106 [facility] Comment on above: Result Comment: VI GEMENT OF PATIENT CARE PER NURSING PROTOCOL Performed By: #### L 501.080 ####[facility] [address] [place], [address] FINGERSTICK GLU 103 mg/dL Normal 74-106 [facility] Comment on above: Result Comment: VI GEMENT OF PATIENT CARE PER NURSING PROTOCOL Performed By: #### L 501.080 ####[facility] [address] [place], [address] FINGERSTICK GLU 92 mg/dL Normal 74-106 [facility] Comment on above: Result Comment: VI GEMENT OF PATIENT CARE PER NURSING PROTOCOL Performed By: #### L 501.080 ####[facility] [address] [place], [address] FINGERSTICK GLU 130 mg/dL High 74-106 [facility] Comment on above: Result Comment: VI GEMENT OF PATIENT CARE PER NURSING PROTOCOL Performed By: #### L 501.080 ####[facility] [address] [place], [address] FINGERSTICK GLU 59 mg/dL Low 74-106 [facility] Comment on above: Result Comment: VI GEMENT OF PATIENT CARE PER NURSING PROTOCOL Performed By: #### L 501.080 ####[facility] [address] [place], [address] FINGERSTICK GLU 73 mg/dL Low 74-106 [facility] Comment on above: Result Comment: VI GEMENT OF PATIENT CARE PER NURSING PROTOCOL Performed By: #### L 501.080 ####[facility] [address] [place], [address] Blood Gases by [facility] 025 DANIEL TEST Positive Normal [facility] Comment on above: Performed By: #### L 9000.0800 ####[facility] [address] [place], [address] Base excess Calc (Bld) [Moles/Vol] 2 mmol/L Normal -2 to +2 [facility] Comment on above: Performed By: #### L 9000.0800 ####[facility] [address] [place], [address] Blood Gas Type ART Normal [facility] Comment on above: Performed By: #### L 9000.0800 ####[facility] [address] [place], [address] CO2 [Moles/Vol] 26 mmol/L Normal [facility] Comment on above: Performed By: #### L 9000.0800 ####[facility] [address] [place], [address] FI02 25.0 Normal [facility] Comment on above: Performed By: #### L 9000.0800 ####[facility] [address] [place], [address] HCO3 (Bld) [Moles/Vol] 25.0 mmol/L Normal 22-26 [facility] Comment on above: Performed By: #### L 8999.0800 ####[facility] [address] [place], [address] Mode AC Normal [facility] Comment on above: Performed By: #### L 8999.0800 ####[facility] [address] [place], [address] O2 Delivery Dev Adult Vent Normal [facility] Comment on above: Performed By: #### L 8999.0800 ####[facility] [address] [place], [address] pCO2 33.6 mmHg Low 35-45 [facility] Comment on above: Performed By: #### L 8999.0800 ####[facility] [address] [place], [address] pH (Bld) 7.48 [pH] High 7.35-7.45 [facility] Comment on above: Performed By: #### L 8999.08 ####[facility] [address] [place], [address] PO2 78 mmHG Normal 75-100 [facility] Comment on above: Performed By: #### L 8999.0800 ####[facility] [address] [place], [address] RR 14 Normal [facility] Comment on above: Performed By: #### L 8999.0800 ####[facility] [address] [place], [address] SITE L Radial Normal [facility] Comment on above: Performed By: #### L 8999.0800 ####[facility] [address] [place], [address] SO2 97 Normal 95-99 [facility] Comment on above: Performed By: #### L 9000.0800 ####[facility] [address] [place], [address] Vt 450.0 mL Normal [facility] Comment on above: Performed By: #### L 9000.0800 ####[facility] [address] [place], [address] CBC W/Diff, Automatedon 06-0 2-2025 Absolute Lymph 1.06 X10 3/uL Normal 0.83-4.51 [facility] Comment on above: Performed By: #### L 100.0100, L500.2500 ####[facility] [address] [place], [address] Absolute Neut 5.3 X10 3/uL Normal 2.0-7.7 [facility] Comment on above: Performed By: #### L 100.0100, L500.2500 ####[facility] [address] [place], [address] Basophils/100 WBC (Bld) 0.8 % Normal 0-1 [facility] Comment on above: Performed By: #### L 100.0100, L500.2500 ####[facility] [address] [place], [address] Eosinophils/100 WBC (Bld) 2.4 % Normal 0-5 [facility] Comment on above: Performed By: #### L 100.0100, L500.2500 ####[facility] [address] [place], [address] Erythrocyte distribution width (RBC) [Ratio] 18.7 % High 11.6-14.6 [facility] Comment on above: Performed By: #### L 100.0100, L500.2500 ####[facility] [address] [place], [address] Hematocrit (Bld) [Volume fraction] 27.9 % Low 37-47 [facility] Comment on above: Performed By: #### L 100.0100, L500.2500 ####[facility] [address] [place], [address] Hemoglobin (Bld) [Mass/Vol] 8.2 g/dL Low 12.0-15.0 [facility] Comment on above: Performed By: #### L 100.0100, L500.2500 ####[facility] [address] [place], [address] IG% 0.400 Normal 0.0-0.9 [facility] Comment on above: Result Comment: IG% - Immature Granulocytes (promyelocytes, myelocytes andmetamyelocytes) > 1% indicates that a LEFT SHIFT is Present. Performed By: #### L 100.0100, L500.2500 ####[facility] [address] [place], [address] Lymphocytes/100 WBC (Bld) 14.4 % Low 19-41 [facility] Comment on above: Performed By: #### L 100.0100, L500.2500 ####[facility] [address] [place], [address] MCH (RBC) [Entitic mass] 21.6 pg Low 27.0-32.0 [facility] Comment on above: Performed By: #### L 100.0100, L500.2500 ####[facility] [address] [place], [address] MCHC (RBC) [Mass/Vol] 29.4 g/dL Low 32-36 [facility] Comment on above: Performed By: #### L 100.0100, L500.2500 ####[facility] [address] [place], [address] MCV (RBC) [Entitic vol] 73.4 fL Low 81-99 [facility] Comment on above: Performed By: #### L 100.0100, L500.2500 ####[facility] [address] [place], [address] Monocytes/100 WBC (Bld) 9.5 % Normal 0-10 [facility] Comment on above: Performed By: #### L 100.0100, L500.2500 ####[facility] [address] [place], [address] Neutrophils/100 WBC (Bld) 72.5 % High 47-70 [facility] Comment on above: Performed By: #### L 100.0100, L500.2500 ####[facility] [address] [place], [address] Nucleated RBC (Bld) [#/Vol] 0 10*3/uL Normal 0-5 [facility] Comment on above: Performed By: #### L 100.0100, L500.2500 ####[facility] [address] [place], [address] Platelet mean volume (Bld) [Entitic vol] 9.9 fL Normal 6.2-12.0 [facility] Comment on above: Performed By: #### L 100.0100, L500.2500 ####[facility] [address] [place], [address] Platelets (Bld) [#/Vol] 407 10*3/uL Normal 150-450 [facility] Comment on above: Performed By: #### L 100.0100, L500.2500 ####[facility] [address] [place], [address] RBC (Bld) [#/Vol] 3.80 10*6/uL Low 4.2-5.4 [facility] Comment on above: Performed By: #### L 100.0100, L500.2500 ####[facility] [address] [place], [address] RDW SD 49.4 fl High 35.1-43.9 [facility] Comment on above: Performed By: #### L 100.0100, L500.2500 ####[facility] [address] [place], [address] WBC (Bld) [#/Vol] 7.4 10*3/uL Normal 4.4-11.0 [facility] Comment on above: Performed By: #### L 100.0100, L500.2500 ####[facility] [address] [place], [address] Chest 1 View (Portable)on Chest 1 View (Portable) Normal [facility] Abdomen Single View (Portabl e)on 02-25-2025 Abdomen Single View (Portable) Normal [facility] Basic Metabolic Profile (BMP )on 02-25-2025 BUN/CRE 38.5 RATIO High 10-20 [facility] Comment on above: Performed By: #### L 100.0100, L500.2500, L501.5200 ####[facility] [address] [place], [address] Calcium [Mass/Vol] 8.9 mg/dL Normal 7.6-11.0 [facility] Comment on above: Performed By: #### L 100.0100, L500.2500, L501.5200 ####[facility] [address] [place], [address] Chloride [Moles/Vol] 102 mmol/L Normal 98-108 [facility] Comment on above: Performed By: #### L 100.0100, L500.2500, L501.5200 ####[facility] [address] [place], [address] CO2 [Moles/Vol] 21.0 mmol/L Normal 21.0-32.0 [facility] Comment on above: Performed By: #### L 100.0100, L500.2500, L501.5200 ####[facility] [address] [place], [address] Creatinine [Mass/Vol] 1.51 mg/dL High 0.70-1.20 [facility] Comment on above: Performed By: #### L 100.0100, L500.2500, L501.5200 ####[facility] [address] [place], [address] ECRCL 38.65 ml/min Low 50-250 [facility] Comment on above: Performed By: #### L 100.0100, L500.2500, L501.5200 ####[facility] [address] [place], [address] GAP 14 Normal 5-15 [facility] Comment on above: Performed By: #### L 100.0100, L500.2500, L501.5200 ####[facility] [address] [place], [address] GFR/1.73 sq M.predicted among non-blacks MDRD (S/P/Bld) [Vol rate/Area] 36 mL/min/{1.73_m2} Low >60 [facility] Comment on above: Result Comment: mL/m in/1.73m2 CKD-EPI Creatinine Equation (2020) Performed By: #### L 100.0100, L500.2500, L501.5200 ####[facility] [address] [place], [address] Glucose [Mass/Vol] 119 mg/dL High 70-99 [facility] Comment on above: Performed By: #### L 100.0100, L500.2500, L501.5200 ####[facility] [address] [place], [address] Potassium [Moles/Vol] 3.9 mmol/L Normal 3.3-5.1 [facility] Comment on above: Performed By: #### L 100.0100, L500.2500, L501.5200 ####[facility] [address] [place], [address] Sodium [Moles/Vol] 137 mmol/L Normal 133-145 [facility] Comment on above: Performed By: #### L 100.0100, L500.2500, L501.5200 ####[facility] [address] [place], [address] Urea nitrogen [Mass/Vol] 58 mg/dL High 4-19 [facility] Comment on above: Performed By: #### L 100.0100, L500.2500, L501.5200 ####[facility] [address] [place], [address] Bedside Glucoseon 02-25-2025 FINGERSTICK GLU 77 mg/dL Normal 74-106 [facility] Comment on above: Result Comment: VI GEMENT OF PATIENT CARE PER NURSING PROTOCOL Performed By: #### L 501.080 ####[facility] [address] [place], [address] FINGERSTICK GLU 97 mg/dL Normal 74-106 [facility] Comment on above: Result Comment: VI GEMENT OF PATIENT CARE PER NURSING PROTOCOL Performed By: #### L 501.080 ####[facility] [address] [place], [address] FINGERSTICK GLU 115 mg/dL High 74-106 [facility] Comment on above: Result Comment: VI GEMENT OF PATIENT CARE PER NURSING PROTOCOL Performed By: #### L 501.080 ####[facility] [address] [place], [address] FINGERSTICK GLU 120 mg/dL High 74-106 [facility] Comment on above: Result Comment: VI GEMENT OF PATIENT CARE PER NURSING PROTOCOL Performed By: #### L 501.080 ####[facility] [address] [place], [address] Blood Gases by [facility] 025 Base excess Calc (Bld) [Moles/Vol] 2 mmol/L Normal -2 to +2 [facility] Comment on above: Performed By: #### L 9000.0800 ####[facility] [address] [place], [address] Blood Gas Type ART Normal [facility] Comment on above: Performed By: #### L 9000.0800 ####[facility] [address] [place], [address] CO2 [Moles/Vol] 27 mmol/L Normal [facility] Comment on above: Performed By: #### L 9000.0800 ####[facility] [address] [place], [address] FI02 25.0 Normal [facility] Comment on above: Performed By: #### L 9000.0800 ####[facility] [address] [place], [address] HCO3 (Bld) [Moles/Vol] 25.6 mmol/L Normal 22-26 [facility] Comment on above: Performed By: #### L 9000.0800 ####[facility] [address] [place], [address] Mode AC Normal [facility] Comment on above: Performed By: #### L 9000.0800 ####[facility] [address] [place], [address] O2 Delivery Dev Adult Vent Normal [facility] Comment on above: Performed By: #### L 9000.0800 ####[facility] [address] [place], [address] pCO2 32.7 mmHg Low 35-45 [facility] Comment on above: Performed By: #### L 9000.0800 ####[facility] [address] [place], [address] PEEP 5 Normal [facility] Comment on above: Performed By: #### L 9000.0800 ####[facility] [address] [place], [address] pH (Bld) 7.50 [pH] High 7.35-7.45 [facility] Comment on above: Performed By: #### L 9000.0800 ####[facility] [address] [place], [address] PO2 82 mmHG Normal 75-100 [facility] Comment on above: Performed By: #### L 9000.0800 ####[facility] [address] [place], [address] RR 14 Normal [facility] Comment on above: Performed By: #### L 9000.0800 ####[facility] [address] [place], [address] SITE L Brach Normal [facility] Comment on above: Performed By: #### L 9000.0800 ####[facility] [address] [place], [address] SO2 97 Normal 95-99 [facility] Comment on above: Performed By: #### L 9000.0800 ####[facility] [address] [place], [address] Vt 450.0 mL Normal [facility] Comment on above: Performed By: #### L 9000.0800 ####[facility] [address] [place], [address] CBC W/Diff, Automatedon 06-0 1-2024 Absolute Lymph 0.96 X10 3/uL Normal 0.83-4.51 [facility] Comment on above: Performed By: #### L 100.0100, L500.2500, L501.5200 ####[facility] [address] [place], [address] Absolute Neut 5.2 X10 3/uL Normal 2.0-7.7 [facility] Comment on above: Performed By: #### L 100.0100, L500.2500, L501.5200 ####[facility] [address] [place], [address] Basophils/100 WBC (Bld) 1.0 % Normal 0-1 [facility] Comment on above: Performed By: #### L 100.0100, L500.2500, L501.5200 ####[facility] [address] [place], [address] Eosinophils/100 WBC (Bld) 2.5 % Normal 0-5 [facility] Comment on above: Performed By: #### L 100.0100, L500.2500, L501.5200 ####[facility] [address] [place], [address] Erythrocyte distribution width (RBC) [Ratio] 18.8 % High 11.6-14.6 [facility] Comment on above: Performed By: #### L 100.0100, L500.2500, L501.5200 ####[facility] [address] [place], [address] Hematocrit (Bld) [Volume fraction] 27.1 % Low 37-47 [facility] Comment on above: Performed By: #### L 100.0100, L500.2500, L501.5200 ####[facility] [address] [place], [address] Hemoglobin (Bld) [Mass/Vol] 8.0 g/dL Low 12.0-15.0 [facility] Comment on above: Performed By: #### L 100.0100, L500.2500, L501.5200 ####[facility] [address] [place], [address] IG% 0.300 Normal 0.0-0.9 [facility] Comment on above: Result Comment: IG% - Immature Granulocytes (promyelocytes, myelocytes andmetamyelocytes) > 1% indicates that a LEFT SHIFT is Present. Performed By: #### L 100.0100, L500.2500, L501.5200 ####[facility] [address] [place], [address] Lymphocytes/100 WBC (Bld) 13.5 % Low 19-41 [facility] Comment on above: Performed By: #### L 100.0100, L500.2500, L501.5200 ####[facility] [address] [place], [address] MCH (RBC) [Entitic mass] 21.6 pg Low 27.0-32.0 [facility] Comment on above: Performed By: #### L 100.0100, L500.2500, L501.5200 ####[facility] [address] [place], [address] MCHC (RBC) [Mass/Vol] 29.5 g/dL Low 32-36 [facility] Comment on above: Performed By: #### L 100.0100, L500.2500, L501.5200 ####[facility] [address] [place], [address] MCV (RBC) [Entitic vol] 73.2 fL Low 81-99 [facility] Comment on above: Performed By: #### L 100.0100, L500.2500, L501.5200 ####[facility] [address] [place], [address] Monocytes/100 WBC (Bld) 8.9 % Normal 0-10 [facility] Comment on above: Performed By: #### L 100.0100, L500.2500, L501.5200 ####[facility] [address] [place], [address] Neutrophils/100 WBC (Bld) 73.8 % High 47-70 [facility] Comment on above: Performed By: #### L 100.0100, L500.2500, L501.5200 ####[facility] [address] [place], [address] Nucleated RBC (Bld) [#/Vol] 0 10*3/uL Normal 0-5 [facility] Comment on above: Performed By: #### L 100.0100, L500.2500, L501.5200 ####[facility] [address] [place], [address] Platelet mean volume (Bld) [Entitic vol] 10.6 fL Normal 6.2-12.0 [facility] Comment on above: Performed By: #### L 100.0100, L500.2500, L501.5200 ####[facility] [address] [place], [address] Platelets (Bld) [#/Vol] 397 10*3/uL Normal 150-450 [facility] Comment on above: Performed By: #### L 100.0100, L500.2500, L501.5200 ####[facility] [address] [place], [address] RBC (Bld) [#/Vol] 3.70 10*6/uL Low 4.2-5.4 [facility] Comment on above: Performed By: #### L 100.0100, L500.2500, L501.5200 ####[facility] [address] [place], [address] RDW SD 50.0 fl High 35.1-43.9 [facility] Comment on above: Performed By: #### L 100.0100, L500.2500, L501.5200 ####[facility] [address] [place], [address] WBC (Bld) [#/Vol] 7.1 10*3/uL Normal 4.4-11.0 [facility] Comment on above: Performed By: #### L 100.0100, L500.2500, L501.5200 ####[facility] [address] [place], [address] Magnesiumon 02-25-2025 Magnesium [Mass/Vol] 1.9 mg/dL Normal 1.5-2.2 [facility] Comment on above: Performed By: #### L 100.0100, L500.2500, L501.5200 ####[facility] [address] [place], [address] Phosphoruson 02-25-2025 Phosphate [Mass/Vol] 3.7 mg/dL Normal 2.7-4.5 [facility] Comment on above: Performed By: #### L 501.2300 ####[facility] [address] [place], [address] Basic Metabolic Profile (BMP )on 02-24-2025 BUN/CRE 37.1 RATIO High 10-20 [facility] Comment on above: Performed By: #### L 100.0100, L500.2500 ####[facility] [address] [place], [address] Calcium [Mass/Vol] 8.8 mg/dL Normal 7.6-11.0 [facility] Comment on above: Performed By: #### L 100.0100, L500.2500 ####[facility] [address] [place], [address] Chloride [Moles/Vol] 99 mmol/L Normal 98-108 [facility] Comment on above: Performed By: #### L 100.0100, L500.2500 ####[facility] [address] [place], [address] CO2 [Moles/Vol] 21.0 mmol/L Normal 21.0-32.0 [facility] Comment on above: Performed By: #### L 100.0100, L500.2500 ####[facility] [address] [place], [address] Creatinine [Mass/Vol] 1.67 mg/dL High 0.70-1.20 [facility] Comment on above: Performed By: #### L 100.0100, L500.2500 ####[facility] [address] [place], [address] ECRCL 34.98 ml/min Low 50-250 [facility] Comment on above: Performed By: #### L 100.0100, L500.2500 ####[facility] [address] [place], [address] GAP 14 Normal 5-15 [facility] Comment on above: Performed By: #### L 100.0100, L500.2500 ####[facility] [address] [place], [address] GFR/1.73 sq M.predicted among non-blacks MDRD (S/P/Bld) [Vol rate/Area] 32 mL/min/{1.73_m2} Low >60 [facility] Comment on above: Result Comment: mL/m in/1.73m2 CKD-EPI Creatinine Equation (2020) Performed By: #### L 100.0100, L500.2500 ####[facility] [address] [place], [address] Glucose [Mass/Vol] 109 mg/dL High 70-99 [facility] Comment on above: Performed By: #### L 100.0100, L500.2500 ####[facility] [address] [place], [address] Potassium [Moles/Vol] 3.4 mmol/L Normal 3.3-5.1 [facility] Comment on above: Performed By: #### L 100.0100, L500.2500 ####[facility] [address] [place], [address] Sodium [Moles/Vol] 134 mmol/L Normal 133-145 [facility] Comment on above: Performed By: #### L 100.0100, L500.2500 ####[facility] [address] [place], [address] Urea nitrogen [Mass/Vol] 62 mg/dL High 4-19 [facility] Comment on above: Performed By: #### L 100.0100, L500.2500 ####[facility] [address] [place], [address] Bedside Glucoseon 02-24-2025 FINGERSTICK GLU 119 mg/dL High 74-106 [facility] Comment on above: Result Comment: VI GEMENT OF PATIENT CARE PER NURSING PROTOCOL Performed By: #### L 501.080 ####[facility] [address] [place], [address] FINGERSTICK GLU 99 mg/dL Normal 74-106 [facility] Comment on above: Result Comment: VI GEMENT OF PATIENT CARE PER NURSING PROTOCOL Performed By: #### L 501.080 ####[facility] [address] [place], [address] FINGERSTICK GLU 99 mg/dL Normal 74-106 [facility] Comment on above: Result Comment: VI GEMENT OF PATIENT CARE PER NURSING PROTOCOL Performed By: #### L 501.080 ####[facility] [address] [place], [address] FINGERSTICK GLU 97 mg/dL Normal 74-106 [facility] Comment on above: Result Comment: VI GEMENT OF PATIENT CARE PER NURSING PROTOCOL Performed By: #### L 501.080 ####[facility] [address] [place], [address] FINGERSTICK GLU 112 mg/dL High 74-106 [facility] Comment on above: Result Comment: VI GEMENT OF PATIENT CARE PER NURSING PROTOCOL Performed By: #### L 501.080 ####[facility] [address] [place], [address] FINGERSTICK GLU 61 mg/dL Low 74-106 [facility] Comment on above: Result Comment: VI GEMENT OF PATIENT CARE PER NURSING PROTOCOL Performed By: #### L 501.080 ####[facility] [address] [place], [address] FINGERSTICK GLU 162 mg/dL High 74-106 [facility] Comment on above: Result Comment: VI GEMENT OF PATIENT CARE PER NURSING PROTOCOL Performed By: #### L 501.080 ####[facility] [address] [place], [address] FINGERSTICK GLU 73 mg/dL Low 74-106 [facility] Comment on above: Result Comment: VI GEMENT OF PATIENT CARE PER NURSING PROTOCOL Performed By: #### L 501.080 ####[facility] [address] [place], [address] CBC W/Diff, Automatedon 05-3 -2024 Absolute Lymph 0.89 X10 3/uL Normal 0.83-4.51 [facility] Comment on above: Performed By: #### L 100.0100, L500.2500 ####[facility] [address] [place], [address] Absolute Neut 6.8 X10 3/uL Normal 2.0-7.7 [facility] Comment on above: Performed By: #### L 100.0100, L500.2500 ####[facility] [address] [place], [address] Basophils/100 WBC (Bld) 0.7 % Normal 0-1 [facility] Comment on above: Performed By: #### L 100.0100, L500.2500 ####[facility] [address] [place], [address] Eosinophils/100 WBC (Bld) 2.5 % Normal 0-5 [facility] Comment on above: Performed By: #### L 100.0100, L500.2500 ####[facility] [address] [place], [address] Erythrocyte distribution width (RBC) [Ratio] 18.9 % High 11.6-14.6 [facility] Comment on above: Performed By: #### L 100.0100, L500.2500 ####[facility] [address] [place], [address] Hematocrit (Bld) [Volume fraction] 27.9 % Low 37-47 [facility] Comment on above: Performed By: #### L 100.0100, L500.2500 ####[facility] [address] [place], [address] Hemoglobin (Bld) [Mass/Vol] 8.3 g/dL Low 12.0-15.0 [facility] Comment on above: Performed By: #### L 100.0100, L500.2500 ####[facility] [address] [place], [address] IG% 0.500 Normal 0.0-0.9 [facility] Comment on above: Result Comment: IG% - Immature Granulocytes (promyelocytes, myelocytes andmetamyelocytes) > 1% indicates that a LEFT SHIFT is Present. Performed By: #### L 100.0100, L500.2500 ####[facility] [address] [place], [address] Lymphocytes/100 WBC (Bld) 10.2 % Low 19-41 [facility] Comment on above: Performed By: #### L 100.0100, L500.2500 ####[facility] [address] [place], [address] MCH (RBC) [Entitic mass] 21.8 pg Low 27.0-32.0 [facility] Comment on above: Performed By: #### L 100.0100, L500.2500 ####[facility] [address] [place], [address] MCHC (RBC) [Mass/Vol] 29.7 g/dL Low 32-36 [facility] Comment on above: Performed By: #### L 100.0100, L500.2500 ####[facility] [address] [place], [address] MCV (RBC) [Entitic vol] 73.2 fL Low 81-99 [facility] Comment on above: Performed By: #### L 100.0100, L500.2500 ####[facility] [address] [place], [address] Monocytes/100 WBC (Bld) 8.0 % Normal 0-10 [facility] Comment on above: Performed By: #### L 100.0100, L500.2500 ####[facility] [address] [place], [address] Neutrophils/100 WBC (Bld) 78.1 % High 47-70 [facility] Comment on above: Performed By: #### L 100.0100, L500.2500 ####[facility] [address] [place], [address] Nucleated RBC (Bld) [#/Vol] 0 10*3/uL Normal 0-5 [facility] Comment on above: Performed By: #### L 100.0100, L500.2500 ####[facility] [address] [place], [address] Platelet mean volume (Bld) [Entitic vol] 10.0 fL Normal 6.2-12.0 [facility] Comment on above: Performed By: #### L 100.0100, L500.2500 ####[facility] [address] [place], [address] Platelets (Bld) [#/Vol] 402 10*3/uL Normal 150-450 [facility] Comment on above: Performed By: #### L 100.0100, L500.2500 ####[facility] [address] [place], [address] RBC (Bld) [#/Vol] 3.81 10*6/uL Low 4.2-5.4 [facility] Comment on above: Performed By: #### L 100.0100, L500.2500 ####[facility] [address] [place], [address] RDW SD 49.6 fl High 35.1-43.9 [facility] Comment on above: Performed By: #### L 100.0100, L500.2500 ####[facility] [address] [place], [address] WBC (Bld) [#/Vol] 8.7 10*3/uL Normal 4.4-11.0 [facility] Comment on above: Performed By: #### L 100.0100, L500.2500 ####[facility] [address] [place], [address] Basic Metabolic Profile (BMP )on 02-23-2025 BUN/CRE 33.4 RATIO High 10-20 [facility] Comment on above: Performed By: #### L 100.0100, L500.2500 ####[facility] [address] [place], [address] Calcium [Mass/Vol] 8.8 mg/dL Normal 7.6-11.0 [facility] Comment on above: Performed By: #### L 100.0100, L500.2500 ####[facility] [address] [place], [address] Chloride [Moles/Vol] 98 mmol/L Normal 98-108 [facility] Comment on above: Performed By: #### L 100.0100, L500.2500 ####[facility] [address] [place], [address] CO2 [Moles/Vol] 20.9 mmol/L Low 21.0-32.0 [facility] Comment on above: Performed By: #### L 100.0100, L500.2500 ####[facility] [address] [place], [address] Creatinine [Mass/Vol] 1.86 mg/dL High 0.70-1.20 [facility] Comment on above: Performed By: #### L 100.0100, L500.2500 ####[facility] [address] [place], [address] ECRCL 31.46 ml/min Low 50-250 [facility] Comment on above: Performed By: #### L 100.0100, L500.2500 ####[facility] [address] [place], [address] GAP 12 Normal 5-15 [facility] Comment on above: Performed By: #### L 100.0100, L500.2500 ####[facility] [address] [place], [address] GFR/1.73 sq M.predicted among non-blacks MDRD (S/P/Bld) [Vol rate/Area] 28 mL/min/{1.73_m2} Low >60 [facility] Comment on above: Result Comment: mL/m in/1.73m2 CKD-EPI Creatinine Equation (2020) Performed By: #### L 100.0100, L500.2500 ####[facility] [address] [place], [address] Glucose [Mass/Vol] 47 mg/dL Low 70-99 [facility] Comment on above: Performed By: #### L 100.0100, L500.2500 ####[facility] [address] [place], [address] Potassium [Moles/Vol] 3.3 mmol/L Normal 3.3-5.1 [facility] Comment on above: Performed By: #### L 100.0100, L500.2500 ####[facility] [address] [place], [address] Sodium [Moles/Vol] 130 mmol/L Low 133-145 [facility] Comment on above: Performed By: #### L 100.0100, L500.2500 ####[facility] [address] [place], [address] Urea nitrogen [Mass/Vol] 62 mg/dL High 4-19 [facility] Comment on above: Performed By: #### L 100.0100, L500.2500 ####[facility] [address] [place], [address] Bedside Glucoseon 02-23-2025 FINGERSTICK GLU 88 mg/dL Normal 74-106 [facility] Comment on above: Result Comment: VI GEMENT OF PATIENT CARE PER NURSING PROTOCOL Performed By: #### L 501.080 ####[facility] [address] [place], [address] FINGERSTICK GLU 73 mg/dL Low 74-106 [facility] Comment on above: Result Comment: VI GEMENT OF PATIENT CARE PER NURSING PROTOCOL Performed By: #### L 501.080 ####[facility] [address] [place], [address] FINGERSTICK GLU 117 mg/dL High 74-106 [facility] Comment on above: Result Comment: VI GEMENT OF PATIENT CARE PER NURSING PROTOCOL Performed By: #### L 501.080 ####[facility] [address] [place], [address] FINGERSTICK GLU 43 mg/dL Invalid Interpretation Code 74-106 [facility] Comment on above: Result Comment: VI GEMENT OF PATIENT CARE PER NURSING PROTOCOL Performed By: #### L 501.080 ####[facility] [address] [place], [address] FINGERSTICK GLU 99 mg/dL Normal 74-106 [facility] Comment on above: Result Comment: VI GEMENT OF PATIENT CARE PER NURSING PROTOCOL Performed By: #### L 501.080 ####[facility] [address] [place], [address] Blood Gases by [facility] 025 DANIEL TEST Positive Normal [facility] Comment on above: Performed By: #### L 9000.0800 ####[facility] [address] [place], [address] Base excess Calc (Bld) [Moles/Vol] 1 mmol/L Normal -2 to +2 [facility] Comment on above: Performed By: #### L 9000.0800 ####[facility] [address] [place], [address] Blood Gas Type ART Normal [facility] Comment on above: Performed By: #### L 9000.0800 ####[facility] [address] [place], [address] CO2 [Moles/Vol] 25 mmol/L Normal [facility] Comment on above: Performed By: #### L 9000.0800 ####[facility] [address] [place], [address] FI02 25.0 Normal [facility] Comment on above: Performed By: #### L 9000.0800 ####[facility] [address] [place], [address] HCO3 (Bld) [Moles/Vol] 24.3 mmol/L Normal 22-26 [facility] Comment on above: Performed By: #### L 9000.0800 ####[facility] [address] [place], [address] Mode AC Normal [facility] Comment on above: Performed By: #### L 9000.0800 ####[facility] [address] [place], [address] O2 Delivery Dev ET Tube Normal [facility] Comment on above: Performed By: #### L 9000.0800 ####[facility] [address] [place], [address] pCO2 33.8 mmHg Low 35-45 [facility] Comment on above: Performed By: #### L 9000.0800 ####[facility] [address] [place], [address] PEEP 5 Normal [facility] Comment on above: Performed By: #### L 9000.0800 ####[facility] [address] [place], [address] pH (Bld) 7.46 [pH] High 7.35-7.45 [facility] Comment on above: Performed By: #### L 9000.0800 ####[facility] [address] [place], [address] PO2 73 mmHG Low 75-100 [facility] Comment on above: Performed By: #### L 9000.0800 ####[facility] [address] [place], [address] RR 14 Normal [facility] Comment on above: Performed By: #### L 9000.0800 ####[facility] [address] [place], [address] SITE R Radial Normal [facility] Comment on above: Performed By: #### L 9000.0800 ####[facility] [address] [place], [address] SO2 96 Normal 95-99 [facility] Comment on above: Performed By: #### L 9000.0800 ####[facility] [address] [place], [address] Vt 450.0 mL Normal [facility] Comment on above: Performed By: #### L 9000.0800 ####[facility] [address] [place], [address] CBC W/Diff, Automatedon 05-3 0-2025 Absolute Lymph 1.04 X10 3/uL Normal 0.83-4.51 [facility] Comment on above: Performed By: #### L 100.0100, L500.2500 ####[facility] [address] [place], [address] Absolute Neut 7.1 X10 3/uL Normal 2.0-7.7 [facility] Comment on above: Performed By: #### L 100.0100, L500.2500 ####[facility] [address] [place], [address] Basophils/100 WBC (Bld) 0.5 % Normal 0-1 [facility] Comment on above: Performed By: #### L 100.0100, L500.2500 ####[facility] [address] [place], [address] Eosinophils/100 WBC (Bld) 2.0 % Normal 0-5 [facility] Comment on above: Performed By: #### L 100.0100, L500.2500 ####[facility] [address] [place], [address] Erythrocyte distribution width (RBC) [Ratio] 19.4 % High 11.6-14.6 [facility] Comment on above: Performed By: #### L 100.0100, L500.2500 ####[facility] [address] [place], [address] Hematocrit (Bld) [Volume fraction] 27.5 % Low 37-47 [facility] Comment on above: Performed By: #### L 100.0100, L500.2500 ####[facility] [address] [place], [address] Hemoglobin (Bld) [Mass/Vol] 8.2 g/dL Low 12.0-15.0 [facility] Comment on above: Performed By: #### L 100.0100, L500.2500 ####[facility] [address] [place], [address] IG% 0.400 Normal 0.0-0.9 [facility] Comment on above: Result Comment: IG% - Immature Granulocytes (promyelocytes, myelocytes andmetamyelocytes) > 1% indicates that a LEFT SHIFT is Present. Performed By: #### L 100.0100, L500.2500 ####[facility] [address] [place], [address] Lymphocytes/100 WBC (Bld) 11.4 % Low 19-41 [facility] Comment on above: Performed By: #### L 100.0100, L500.2500 ####[facility] [address] [place], [address] MCH (RBC) [Entitic mass] 21.6 pg Low 27.0-32.0 [facility] Comment on above: Performed By: #### L 100.0100, L500.2500 ####[facility] [address] [place], [address] MCHC (RBC) [Mass/Vol] 29.8 g/dL Low 32-36 [facility] Comment on above: Performed By: #### L 100.0100, L500.2500 ####[facility] [address] [place], [address] MCV (RBC) [Entitic vol] 72.6 fL Low 81-99 [facility] Comment on above: Performed By: #### L 100.0100, L500.2500 ####[facility] [address] [place], [address] Monocytes/100 WBC (Bld) 7.3 % Normal 0-10 [facility] Comment on above: Performed By: #### L 100.0100, L500.2500 ####[facility] [address] [place], [address] Neutrophils/100 WBC (Bld) 78.4 % High 47-70 [facility] Comment on above: Performed By: #### L 100.0100, L500.2500 ####[facility] [address] [place], [address] Nucleated RBC (Bld) [#/Vol] 0 10*3/uL Normal 0-5 [facility] Comment on above: Performed By: #### L 100.0100, L500.2500 ####[facility] [address] [place], [address] Platelet mean volume (Bld) [Entitic vol] 10.2 fL Normal 6.2-12.0 [facility] Comment on above: Performed By: #### L 100.0100, L500.2500 ####[facility] [address] [place], [address] Platelets (Bld) [#/Vol] 398 10*3/uL Normal 150-450 [facility] Comment on above: Performed By: #### L 100.0100, L500.2500 ####[facility] [address] [place], [address] RBC (Bld) [#/Vol] 3.79 10*6/uL Low 4.2-5.4 [facility] Comment on above: Performed By: #### L 100.0100, L500.2500 ####[facility] [address] [place], [address] RDW SD 50.0 fl High 35.1-43.9 [facility] Comment on above: Performed By: #### L 100.0100, L500.2500 ####[facility] [address] [place], [address] WBC (Bld) [#/Vol] 9.1 10*3/uL Normal 4.4-11.0 [facility] Comment on above: Performed By: #### L 100.0100, L500.2500 ####[facility] [address] [place], [address] Chest 1 View (Portable)on Chest 1 View (Portable) Normal [facility] Basic Metabolic Profile (BMP )on 02-22-2025 BUN/CRE 32.7 RATIO High 10-20 [facility] Comment on above: Performed By: #### L 100.0100, L500.2500 ####[facility] [address] [place], [address] Calcium [Mass/Vol] 9.0 mg/dL Normal 7.6-11.0 [facility] Comment on above: Performed By: #### L 100.0100, L500.2500 ####[facility] [address] [place], [address] Chloride [Moles/Vol] 99 mmol/L Normal 98-108 [facility] Comment on above: Performed By: #### L 100.0100, L500.2500 ####[facility] [address] [place], [address] CO2 [Moles/Vol] 20.6 mmol/L Low 21.0-32.0 [facility] Comment on above: Performed By: #### L 100.0100, L500.2500 ####[facility] [address] [place], [address] Creatinine [Mass/Vol] 1.84 mg/dL High 0.70-1.20 [facility] Comment on above: Performed By: #### L 100.0100, L500.2500 ####[facility] [address] [place], [address] ECRCL 31.80 ml/min Low 50-250 [facility] Comment on above: Performed By: #### L 100.0100, L500.2500 ####[facility] [address] [place], [address] GAP 14 Normal 5-15 [facility] Comment on above: Performed By: #### L 100.0100, L500.2500 ####[facility] [address] [place], [address] GFR/1.73 sq M.predicted among non-blacks MDRD (S/P/Bld) [Vol rate/Area] 28 mL/min/{1.73_m2} Low >60 [facility] Comment on above: Result Comment: mL/m in/1.73m2 CKD-EPI Creatinine Equation (2020) Performed By: #### L 100.0100, L500.2500 ####[facility] [address] [place], [address] Glucose [Mass/Vol] 118 mg/dL High 70-99 [facility] Comment on above: Performed By: #### L 100.0100, L500.2500 ####[facility] [address] [place], [address] Potassium [Moles/Vol] 3.7 mmol/L Normal 3.3-5.1 [facility] Comment on above: Performed By: #### L 100.0100, L500.2500 ####[facility] [address] [place], [address] Sodium [Moles/Vol] 134 mmol/L Normal 133-145 [facility] Comment on above: Performed By: #### L 100.0100, L500.2500 ####[facility] [address] [place], [address] Urea nitrogen [Mass/Vol] 60 mg/dL High 4-19 [facility] Comment on above: Performed By: #### L 100.0100, L500.2500 ####[facility] [address] [place], [address] Bedside Glucoseon 02-22-2025 FINGERSTICK GLU 62 mg/dL Low 74-106 [facility] Comment on above: Result Comment: VI GEMENT OF PATIENT CARE PER NURSING PROTOCOL Performed By: #### L 501.080 ####[facility] [address] [place], [address] FINGERSTICK GLU 154 mg/dL High 74-106 [facility] Comment on above: Result Comment: VI GEMENT OF PATIENT CARE PER NURSING PROTOCOL Performed By: #### L 501.080 ####[facility] [address] [place], [address] FINGERSTICK GLU 56 mg/dL Low 74-106 [facility] Comment on above: Result Comment: VI GEMENT OF PATIENT CARE PER NURSING PROTOCOL Performed By: #### L 501.080 ####[facility] [address] [place], [address] FINGERSTICK GLU 104 mg/dL Normal 74-106 [facility] Comment on above: Result Comment: VI GEMENT OF PATIENT CARE PER NURSING PROTOCOL Performed By: #### L 501.080 ####[facility] [address] [place], [address] FINGERSTICK GLU 112 mg/dL High 74-106 [facility] Comment on above: Result Comment: VI MONTEJO OF PATIENT CARE PER NURSING PROTOCOL Performed By: #### L 501.080 ####[facility] [address] [place], [address] CBC W/Diff, Automatedon 05-2 Absolute Lymph 0.86 X10 3/uL Normal 0.83-4.51 [facility] Comment on above: Performed By: #### L 100.0100, L500.2500 ####[facility] [address] [place], [address] Absolute Neut 7.2 X10 3/uL Normal 2.0-7.7 [facility] Comment on above: Performed By: #### L 100.0100, L500.2500 ####[facility] [address] [place], [address] Basophils/100 WBC (Bld) 0.6 % Normal 0-1 [facility] Comment on above: Performed By: #### L 100.0100, L500.2500 ####[facility] [address] [place], [address] Eosinophils/100 WBC (Bld) 2.0 % Normal 0-5 [facility] Comment on above: Performed By: #### L 100.0100, L500.2500 ####[facility] [address] [place], [address] Erythrocyte distribution width (RBC) [Ratio] 19.8 % High 11.6-14.6 [facility] Comment on above: Performed By: #### L 100.0100, L500.2500 ####[facility] [address] [place], [address] Hematocrit (Bld) [Volume fraction] 29.3 % Low 37-47 [facility] Comment on above: Performed By: #### L 100.0100, L500.2500 ####[facility] [address] [place], [address] Hemoglobin (Bld) [Mass/Vol] 8.7 g/dL Low 12.0-15.0 [facility] Comment on above: Performed By: #### L 100.0100, L500.2500 ####[facility] [address] [place], [address] IG% 0.700 Normal 0.0-0.9 [facility] Comment on above: Result Comment: IG% - Immature Granulocytes (promyelocytes, myelocytes andmetamyelocytes) > 1% indicates that a LEFT SHIFT is Present. Performed By: #### L 100.0100, L500.2500 ####[facility] [address] [place], [address] Lymphocytes/100 WBC (Bld) 9.7 % Low 19-41 [facility] Comment on above: Performed By: #### L 100.0100, L500.2500 ####[facility] [address] [place], [address] MCH (RBC) [Entitic mass] 22.0 pg Low 27.0-32.0 [facility] Comment on above: Performed By: #### L 100.0100, L500.2500 ####[facility] [address] [place], [address] MCHC (RBC) [Mass/Vol] 29.7 g/dL Low 32-36 [facility] Comment on above: Performed By: #### L 100.0100, L500.2500 ####[facility] [address] [place], [address] MCV (RBC) [Entitic vol] 74.2 fL Low 81-99 [facility] Comment on above: Performed By: #### L 100.0100, L500.2500 ####[facility] [address] [place], [address] Monocytes/100 WBC (Bld) 6.4 % Normal 0-10 [facility] Comment on above: Performed By: #### L 100.0100, L500.2500 ####[facility] [address] [place], [address] Neutrophils/100 WBC (Bld) 80.6 % High 47-70 [facility] Comment on above: Performed By: #### L 100.0100, L500.2500 ####[facility] [address] [place], [address] Nucleated RBC (Bld) [#/Vol] 0 10*3/uL Normal 0-5 [facility] Comment on above: Performed By: #### L 100.0100, L500.2500 ####[facility] [address] [place], [address] Platelet mean volume (Bld) [Entitic vol] 10.8 fL Normal 6.2-12.0 [facility] Comment on above: Performed By: #### L 100.0100, L500.2500 ####[facility] [address] [place], [address] Platelets (Bld) [#/Vol] 401 10*3/uL Normal 150-450 [facility] Comment on above: Performed By: #### L 100.0100, L500.2500 ####[facility] [address] [place], [address] RBC (Bld) [#/Vol] 3.95 10*6/uL Low 4.2-5.4 [facility] Comment on above: Performed By: #### L 100.0100, L500.2500 ####[facility] [address] [place], [address] RDW SD 52.0 fl High 35.1-43.9 [facility] Comment on above: Performed By: #### L 100.0100, L500.2500 ####[facility] [address] [place], [address] WBC (Bld) [#/Vol] 8.9 10*3/uL Normal 4.4-11.0 [facility] Comment on above: Performed By: #### L 100.0100, L500.2500 ####[facility] [address] [place], [address] Basic Metabolic Profile (BMP )on 02-21-2025 BUN/CRE 31.0 RATIO High 10-20 [facility] Comment on above: Performed By: #### L 100.0100, L500.2500 ####[facility] [address] [place], [address] Calcium [Mass/Vol] 9.4 mg/dL Normal 7.6-11.0 [facility] Comment on above: Performed By: #### L 100.0100, L500.2500 ####[facility] [address] [place], [address] Chloride [Moles/Vol] 97 mmol/L Low 98-108 [facility] Comment on above: Performed By: #### L 100.0100, L500.2500 ####[facility] [address] [place], [address] CO2 [Moles/Vol] 21.7 mmol/L Normal 21.0-32.0 [facility] Comment on above: Performed By: #### L 100.0100, L500.2500 ####[facility] [address] [place], [address] Creatinine [Mass/Vol] 1.75 mg/dL High 0.70-1.20 [facility] Comment on above: Performed By: #### L 100.0100, L500.2500 ####[facility] [address] [place], [address] ECRCL 33.37 ml/min Low 50-250 [facility] Comment on above: Performed By: #### L 100.0100, L500.2500 ####[facility] [address] [place], [address] GAP 13 Normal 5-15 [facility] Comment on above: Performed By: #### L 100.0100, L500.2500 ####[facility] [address] [place], [address] GFR/1.73 sq M.predicted among non-blacks MDRD (S/P/Bld) [Vol rate/Area] 30 mL/min/{1.73_m2} Low >60 [facility] Comment on above: Result Comment: mL/m in/1.73m2 CKD-EPI Creatinine Equation (2020) Performed By: #### L 100.0100, L500.2500 ####[facility] [address] [place], [address] Glucose [Mass/Vol] 120 mg/dL High 70-99 [facility] Comment on above: Performed By: #### L 100.0100, L500.2500 ####[facility] [address] [place], [address] Potassium [Moles/Vol] 3.7 mmol/L Normal 3.3-5.1 [facility] Comment on above: Performed By: #### L 100.0100, L500.2500 ####[facility] [address] [place], [address] Sodium [Moles/Vol] 132 mmol/L Low 133-145 [facility] Comment on above: Performed By: #### L 100.0100, L500.2500 ####[facility] [address] [place], [address] Urea nitrogen [Mass/Vol] 54 mg/dL High 4-19 [facility] Comment on above: Performed By: #### L 100.0100, L500.2500 ####[facility] [address] [place], [address] Bedside Glucoseon 02-21-2025 FINGERSTICK GLU 114 mg/dL High 74-106 [facility] Comment on above: Result Comment: VI GEMENT OF PATIENT CARE PER NURSING PROTOCOL Performed By: #### L 501.080 ####[facility] [address] [place], [address] FINGERSTICK GLU 162 mg/dL High 74-106 [facility] Comment on above: Result Comment: VI GEMENT OF PATIENT CARE PER NURSING PROTOCOL Performed By: #### L 501.080 ####[facility] [address] [place], [address] FINGERSTICK GLU 51 mg/dL Low 74-106 [facility] Comment on above: Result Comment: VI GEMENT OF PATIENT CARE PER NURSING PROTOCOL Performed By: #### L 501.080 ####[facility] [address] [place], [address] FINGERSTICK GLU 89 mg/dL Normal 74-106 [facility] Comment on above: Result Comment: VI GEMENT OF PATIENT CARE PER NURSING PROTOCOL Performed By: #### L 501.080 ####[facility] [address] [place], [address] FINGERSTICK GLU 73 mg/dL Low 74-106 [facility] Comment on above: Result Comment: VI GEMENT OF PATIENT CARE PER NURSING PROTOCOL Performed By: #### L 501.080 ####[facility] [address] [place], [address] FINGERSTICK GLU 41 mg/dL Invalid Interpretation Code 74-106 [facility] Comment on above: Result Comment: Dr Shawn padilla FollowedMANAGEMENT OF PATIENT CARE PER NURSING PROTOCOL Performed By: #### L 501.080 ####[facility] [address] [place], [address] FINGERSTICK GLU 87 mg/dL Normal 74-106 [facility] Comment on above: Result Comment: VI GEMENT OF PATIENT CARE PER NURSING PROTOCOL Performed By: #### L 501.080 ####[facility] [address] [place], [address] CBC W/Diff, Automatedon 05-2 Absolute Lymph 1.00 X10 3/uL Normal 0.83-4.51 [facility] Comment on above: Performed By: #### L 100.0100, L500.2500 ####[facility] [address] [place], [address] Absolute Neut 7.9 X10 3/uL High 2.0-7.7 [facility] Comment on above: Performed By: #### L 100.0100, L500.2500 ####[facility] [address] [place], [address] Basophils/100 WBC (Bld) 0.7 % Normal 0-1 [facility] Comment on above: Performed By: #### L 100.0100, L500.2500 ####[facility] [address] [place], [address] Eosinophils/100 WBC (Bld) 1.9 % Normal 0-5 [facility] Comment on above: Performed By: #### L 100.0100, L500.2500 ####[facility] [address] [place], [address] Erythrocyte distribution width (RBC) [Ratio] 19.6 % High 11.6-14.6 [facility] Comment on above: Performed By: #### L 100.0100, L500.2500 ####[facility] [address] [place], [address] Hematocrit (Bld) [Volume fraction] 28.2 % Low 37-47 [facility] Comment on above: Performed By: #### L 100.0100, L500.2500 ####[facility] [address] [place], [address] Hemoglobin (Bld) [Mass/Vol] 8.4 g/dL Low 12.0-15.0 [facility] Comment on above: Performed By: #### L 100.0100, L500.2500 ####[facility] [address] [place], [address] IG% 0.500 Normal 0.0-0.9 [facility] Comment on above: Result Comment: IG% - Immature Granulocytes (promyelocytes, myelocytes andmetamyelocytes) > 1% indicates that a LEFT SHIFT is Present. Performed By: #### L 100.0100, L500.2500 ####[facility] [address] [place], [address] Lymphocytes/100 WBC (Bld) 9.9 % Low 19-41 [facility] Comment on above: Performed By: #### L 100.0100, L500.2500 ####[facility] [address] [place], [address] MCH (RBC) [Entitic mass] 22.2 pg Low 27.0-32.0 [facility] Comment on above: Performed By: #### L 100.0100, L500.2500 ####[facility] [address] [place], [address] MCHC (RBC) [Mass/Vol] 29.8 g/dL Low 32-36 [facility] Comment on above: Performed By: #### L 100.0100, L500.2500 ####[facility] [address] [place], [address] MCV (RBC) [Entitic vol] 74.4 fL Low 81-99 [facility] Comment on above: Performed By: #### L 100.0100, L500.2500 ####[facility] [address] [place], [address] Monocytes/100 WBC (Bld) 8.3 % Normal 0-10 [facility] Comment on above: Performed By: #### L 100.0100, L500.2500 ####[facility] [address] [place], [address] Neutrophils/100 WBC (Bld) 78.7 % High 47-70 [facility] Comment on above: Performed By: #### L 100.0100, L500.2500 ####[facility] [address] [place], [address] Nucleated RBC (Bld) [#/Vol] 0 10*3/uL Normal 0-5 [facility] Comment on above: Performed By: #### L 100.0100, L500.2500 ####[facility] [address] [place], [address] Platelet mean volume (Bld) [Entitic vol] 10.1 fL Normal 6.2-12.0 [facility] Comment on above: Performed By: #### L 100.0100, L500.2500 ####[facility] [address] [place], [address] Platelets (Bld) [#/Vol] 392 10*3/uL Normal 150-450 [facility] Comment on above: Performed By: #### L 100.0100, L500.2500 ####[facility] [address] [place], [address] RBC (Bld) [#/Vol] 3.79 10*6/uL Low 4.2-5.4 [facility] Comment on above: Performed By: #### L 100.0100, L500.2500 ####[facility] [address] [place], [address] RDW SD 51.9 fl High 35.1-43.9 [facility] Comment on above: Performed By: #### L 100.0100, L500.2500 ####[facility] [address] [place], [address] WBC (Bld) [#/Vol] 10.1 10*3/uL Normal 4.4-11.0 [facility] Comment on above: Performed By: #### L 100.0100, L500.2500 ####[facility] [address] [place], [address] EGD Reporton 02-21-2025 EGD Report Normal [facility] Basic Metabolic Profile (BMP )on 02-20-2025 BUN/CRE 35.1 RATIO High 10-20 [facility] Comment on above: Performed By: #### L 100.0100, L500.2500 ####[facility] [address] [place], [address] Calcium [Mass/Vol] 9.0 mg/dL Normal 7.6-11.0 [facility] Comment on above: Performed By: #### L 100.0100, L500.2500 ####[facility] [address] [place], [address] Chloride [Moles/Vol] 96 mmol/L Low 98-108 [facility] Comment on above: Performed By: #### L 100.0100, L500.2500 ####[facility] [address] [place], [address] CO2 [Moles/Vol] 19.6 mmol/L Low 21.0-32.0 [facility] Comment on above: Performed By: #### L 100.0100, L500.2500 ####[facility] [address] [place], [address] Creatinine [Mass/Vol] 2.47 mg/dL High 0.70-1.20 [facility] Comment on above: Performed By: #### L 100.0100, L500.2500 ####[facility] [address] [place], [address] ECRCL 23.85 ml/min Low 50-250 [facility] Comment on above: Performed By: #### L 100.0100, L500.2500 ####[facility] [address] [place], [address] GAP 14 Normal 5-15 [facility] Comment on above: Performed By: #### L 100.0100, L500.2500 ####[facility] [address] [place], [address] GFR/1.73 sq M.predicted among non-blacks MDRD (S/P/Bld) [Vol rate/Area] 20 mL/min/{1.73_m2} Low >60 [facility] Comment on above: Result Comment: mL/m in/1.73m2 CKD-EPI Creatinine Equation (2020) Performed By: #### L 100.0100, L500.2500 ####[facility] [address] [place], [address] Glucose [Mass/Vol] 143 mg/dL High 70-99 [facility] Comment on above: Performed By: #### L 100.0100, L500.2500 ####[facility] [address] [place], [address] Potassium [Moles/Vol] 3.8 mmol/L Normal 3.3-5.1 [facility] Comment on above: Performed By: #### L 100.0100, L500.2500 ####[facility] [address] [place], [address] Sodium [Moles/Vol] 129 mmol/L Low 133-145 [facility] Comment on above: Performed By: #### L 100.0100, L500.2500 ####[facility] [address] [place], [address] Urea nitrogen [Mass/Vol] 87 mg/dL High 4-19 [facility] Comment on above: Performed By: #### L 100.0100, L500.2500 ####[facility] [address] [place], [address] Bedside Glucoseon 02-20-2025 FINGERSTICK GLU 129 mg/dL High 74-106 [facility] Comment on above: Result Comment: VI GEMENT OF PATIENT CARE PER NURSING PROTOCOL Performed By: #### L 501.080 ####[facility] [address] [place], [address] FINGERSTICK GLU 138 mg/dL High 74-106 [facility] Comment on above: Result Comment: VI GEMENT OF PATIENT CARE PER NURSING PROTOCOL Performed By: #### L 501.080 ####[facility] [address] [place], [address] FINGERSTICK GLU 140 mg/dL High 74-106 [facility] Comment on above: Result Comment: Dr Shawn padilla FollowedMANAGEMENT OF PATIENT CARE PER NURSING PROTOCOL Performed By: #### L 501.080 ####[facility] [address] [place], [address] FINGERSTICK GLU 111 mg/dL High 74-106 [facility] Comment on above: Result Comment: VI GEMENT OF PATIENT CARE PER NURSING PROTOCOL Performed By: #### L 501.080 ####[facility] [address] [place], [address] FINGERSTICK GLU 142 mg/dL High 74-106 [facility] Comment on above: Result Comment: VI GEMENT OF PATIENT CARE PER NURSING PROTOCOL Performed By: #### L 501.080 ####[facility] [address] [place], [address] FINGERSTICK GLU 208 mg/dL High 74-106 [facility] Comment on above: Result Comment: VI MONTEJO OF PATIENT CARE PER NURSING PROTOCOL Performed By: #### L 501.080 ####[facility] [address] [place], [address] CBC W/Diff, Automatedon 05-2 Absolute Lymph 1.04 X10 3/uL Normal 0.83-4.51 [facility] Comment on above: Performed By: #### L 100.0100, L500.2500 ####[facility] [address] [place], [address] Absolute Neut 9.6 X10 3/uL High 2.0-7.7 [facility] Comment on above: Performed By: #### L 100.0100, L500.2500 ####[facility] [address] [place], [address] Basophils/100 WBC (Bld) 0.8 % Normal 0-1 [facility] Comment on above: Performed By: #### L 100.0100, L500.2500 ####[facility] [address] [place], [address] Eosinophils/100 WBC (Bld) 2.0 % Normal 0-5 [facility] Comment on above: Performed By: #### L 100.0100, L500.2500 ####[facility] [address] [place], [address] Erythrocyte distribution width (RBC) [Ratio] 19.6 % High 11.6-14.6 [facility] Comment on above: Performed By: #### L 100.0100, L500.2500 ####[facility] [address] [place], [address] Hematocrit (Bld) [Volume fraction] 28.1 % Low 37-47 [facility] Comment on above: Performed By: #### L 100.0100, L500.2500 ####[facility] [address] [place], [address] Hemoglobin (Bld) [Mass/Vol] 8.3 g/dL Low 12.0-15.0 [facility] Comment on above: Performed By: #### L 100.0100, L500.2500 ####[facility] [address] [place], [address] IG% 0.500 Normal 0.0-0.9 [facility] Comment on above: Result Comment: IG% - Immature Granulocytes (promyelocytes, myelocytes andmetamyelocytes) > 1% indicates that a LEFT SHIFT is Present. Performed By: #### L 100.0100, L500.2500 ####[facility] [address] [place], [address] Lymphocytes/100 WBC (Bld) 8.8 % Low 19-41 [facility] Comment on above: Performed By: #### L 100.0100, L500.2500 ####[facility] [address] [place], [address] MCH (RBC) [Entitic mass] 21.7 pg Low 27.0-32.0 [facility] Comment on above: Performed By: #### L 100.0100, L500.2500 ####[facility] [address] [place], [address] MCHC (RBC) [Mass/Vol] 29.5 g/dL Low 32-36 [facility] Comment on above: Performed By: #### L 100.0100, L500.2500 ####[facility] [address] [place], [address] MCV (RBC) [Entitic vol] 73.4 fL Low 81-99 [facility] Comment on above: Performed By: #### L 100.0100, L500.2500 ####[facility] [address] [place], [address] Monocytes/100 WBC (Bld) 6.6 % Normal 0-10 [facility] Comment on above: Performed By: #### L 100.0100, L500.2500 ####[facility] [address] [place], [address] Neutrophils/100 WBC (Bld) 81.3 % High 47-70 [facility] Comment on above: Performed By: #### L 100.0100, L500.2500 ####[facility] [address] [place], [address] Nucleated RBC (Bld) [#/Vol] 0 10*3/uL Normal 0-5 [facility] Comment on above: Performed By: #### L 100.0100, L500.2500 ####[facility] [address] [place], [address] Platelet mean volume (Bld) [Entitic vol] 10.7 fL Normal 6.2-12.0 [facility] Comment on above: Performed By: #### L 100.0100, L500.2500 ####[facility] [address] [place], [address] Platelets (Bld) [#/Vol] 373 10*3/uL Normal 150-450 [facility] Comment on above: Performed By: #### L 100.0100, L500.2500 ####[facility] [address] [place], [address] RBC (Bld) [#/Vol] 3.83 10*6/uL Low 4.2-5.4 [facility] Comment on above: Performed By: #### L 100.0100, L500.2500 ####[facility] [address] [place], [address] RDW SD 50.8 fl High 35.1-43.9 [facility] Comment on above: Performed By: #### L 100.0100, L500.2500 ####[facility] [address] [place], [address] WBC (Bld) [#/Vol] 11.8 10*3/uL High 4.4-11.0 [facility] Comment on above: Performed By: #### L 100.0100, L500.2500 ####[facility] [address] [place], [address] Basic Metabolic Profile (BMP )on 02-19-2025 BUN/CRE 31.5 RATIO High 10-20 [facility] Comment on above: Performed By: #### L 100.0100, L500.2500 ####[facility] [address] [place], [address] Calcium [Mass/Vol] 9.0 mg/dL Normal 7.6-11.0 [facility] Comment on above: Performed By: #### L 100.0100, L500.2500 ####[facility] [address] [place], [address] Chloride [Moles/Vol] 96 mmol/L Low 98-108 [facility] Comment on above: Performed By: #### L 100.0100, L500.2500 ####[facility] [address] [place], [address] CO2 [Moles/Vol] 20.2 mmol/L Low 21.0-32.0 [facility] Comment on above: Performed By: #### L 100.0100, L500.2500 ####[facility] [address] [place], [address] Creatinine [Mass/Vol] 2.50 mg/dL High 0.70-1.20 [facility] Comment on above: Performed By: #### L 100.0100, L500.2500 ####[facility] [address] [place], [address] ECRCL 23.26 ml/min Low 50-250 [facility] Comment on above: Performed By: #### L 100.0100, L500.2500 ####[facility] [address] [place], [address] GAP 14 Normal 5-15 [facility] Comment on above: Performed By: #### L 100.0100, L500.2500 ####[facility] [address] [place], [address] GFR/1.73 sq M.predicted among non-blacks MDRD (S/P/Bld) [Vol rate/Area] 19 mL/min/{1.73_m2} Low >60 [facility] Comment on above: Result Comment: mL/m in/1.73m2 CKD-EPI Creatinine Equation (2020) Performed By: #### L 100.0100, L500.2500 ####[facility] [address] [place], [address] Glucose [Mass/Vol] 206 mg/dL High 70-99 [facility] Comment on above: Performed By: #### L 100.0100, L500.2500 ####[facility] [address] [place], [address] Potassium [Moles/Vol] 3.9 mmol/L Normal 3.3-5.1 [facility] Comment on above: Performed By: #### L 100.0100, L500.2500 ####[facility] [address] [place], [address] Sodium [Moles/Vol] 130 mmol/L Low 133-145 [facility] Comment on above: Performed By: #### L 100.0100, L500.2500 ####[facility] [address] [place], [address] Urea nitrogen [Mass/Vol] 79 mg/dL High 4-19 [facility] Comment on above: Performed By: #### L 100.0100, L500.2500 ####[facility] [address] [place], [address] Bedside Glucoseon 02-19-2025 FINGERSTICK GLU 151 mg/dL High 74-106 [facility] Comment on above: Result Comment: VI GEMENT OF PATIENT CARE PER NURSING PROTOCOL Performed By: #### L 501.080 ####[facility] [address] [place], [address] FINGERSTICK GLU 150 mg/dL High 74-106 [facility] Comment on above: Result Comment: VI GEMENT OF PATIENT CARE PER NURSING PROTOCOL Performed By: #### L 501.080 ####[facility] [address] [place], [address] FINGERSTICK GLU 157 mg/dL High 74-106 [facility] Comment on above: Result Comment: Dr Shawn padilla FollowedInsulin GivenMANAGEMENT OF PATIENT CARE PER NURSING PROTOCOL Performed By: #### L 501.080 ####[facility] [address] [place], [address] FINGERSTICK GLU 214 mg/dL High 74-106 [facility] Comment on above: Result Comment: VI GEMENT OF PATIENT CARE PER NURSING PROTOCOL Performed By: #### L 501.080 ####[facility] [address] [place], [address] CBC W/Diff, Automatedon 05 Absolute Lymph 1.01 X10 3/uL Normal 0.83-4.51 [facility] Comment on above: Performed By: #### L 100.0100, L500.2500 ####[facility] [address] [place], [address] Absolute Neut 11.5 X10 3/uL High 2.0-7.7 [facility] Comment on above: Performed By: #### L 100.0100, L500.2500 ####[facility] [address] [place], [address] Basophils/100 WBC (Bld) 0.7 % Normal 0-1 [facility] Comment on above: Performed By: #### L 100.0100, L500.2500 ####[facility] [address] [place], [address] Eosinophils/100 WBC (Bld) 1.9 % Normal 0-5 [facility] Comment on above: Performed By: #### L 100.0100, L500.2500 ####[facility] [address] [place], [address] Erythrocyte distribution width (RBC) [Ratio] 19.7 % High 11.6-14.6 [facility] Comment on above: Performed By: #### L 100.0100, L500.2500 ####[facility] [address] [place], [address] Hematocrit (Bld) [Volume fraction] 26.6 % Low 37-47 [facility] Comment on above: Performed By: #### L 100.0100, L500.2500 ####[facility] [address] [place], [address] Hemoglobin (Bld) [Mass/Vol] 7.8 g/dL Low 12.0-15.0 [facility] Comment on above: Performed By: #### L 100.0100, L500.2500 ####[facility] [address] [place], [address] IG% 0.600 Normal 0.0-0.9 [facility] Comment on above: Result Comment: IG% - Immature Granulocytes (promyelocytes, myelocytes andmetamyelocytes) > 1% indicates that a LEFT SHIFT is Present. Performed By: #### L 100.0100, L500.2500 ####[facility] [address] [place], [address] Lymphocytes/100 WBC (Bld) 7.3 % Low 19-41 [facility] Comment on above: Performed By: #### L 100.0100, L500.2500 ####[facility] [address] [place], [address] MCH (RBC) [Entitic mass] 21.9 pg Low 27.0-32.0 [facility] Comment on above: Performed By: #### L 100.0100, L500.2500 ####[facility] [address] [place], [address] MCHC (RBC) [Mass/Vol] 29.3 g/dL Low 32-36 [facility] Comment on above: Performed By: #### L 100.0100, L500.2500 ####[facility] [address] [place], [address] MCV (RBC) [Entitic vol] 74.7 fL Low 81-99 [facility] Comment on above: Performed By: #### L 100.0100, L500.2500 ####[facility] [address] [place], [address] Monocytes/100 WBC (Bld) 6.8 % Normal 0-10 [facility] Comment on above: Performed By: #### L 100.0100, L500.2500 ####[facility] [address] [place], [address] Neutrophils/100 WBC (Bld) 82.7 % High 47-70 [facility] Comment on above: Performed By: #### L 100.0100, L500.2500 ####[facility] [address] [place], [address] Nucleated RBC (Bld) [#/Vol] 0 10*3/uL Normal 0-5 [facility] Comment on above: Performed By: #### L 100.0100, L500.2500 ####[facility] [address] [place], [address] Platelet mean volume (Bld) [Entitic vol] 11.4 fL Normal 6.2-12.0 [facility] Comment on above: Performed By: #### L 100.0100, L500.2500 ####[facility] [address] [place], [address] Platelets (Bld) [#/Vol] 359 10*3/uL Normal 150-450 [facility] Comment on above: Performed By: #### L 100.0100, L500.2500 ####[facility] [address] [place], [address] RBC (Bld) [#/Vol] 3.56 10*6/uL Low 4.2-5.4 [facility] Comment on above: Performed By: #### L 100.0100, L500.2500 ####[facility] [address] [place], [address] RDW SD 52.3 fl High 35.1-43.9 [facility] Comment on above: Performed By: #### L 100.0100, L500.2500 ####[facility] [address] [place], [address] WBC (Bld) [#/Vol] 13.9 10*3/uL High 4.4-11.0 [facility] Comment on above: Performed By: #### L 100.0100, L500.2500 ####[facility] [address] [place], [address] Basic Metabolic Profile (BMP )on 02-18-2025 BUN/CRE 29.3 RATIO High 10-20 [facility] Comment on above: Performed By: #### L 100.0100, L500.2500 ####[facility] [address] [place], [address] Calcium [Mass/Vol] 9.1 mg/dL Normal 7.6-11.0 [facility] Comment on above: Performed By: #### L 100.0100, L500.2500 ####[facility] [address] [place], [address] Chloride [Moles/Vol] 98 mmol/L Normal 98-108 [facility] Comment on above: Performed By: #### L 100.0100, L500.2500 ####[facility] [address] [place], [address] CO2 [Moles/Vol] 21.2 mmol/L Normal 21.0-32.0 [facility] Comment on above: Performed By: #### L 100.0100, L500.2500 ####[facility] [address] [place], [address] Creatinine [Mass/Vol] 2.31 mg/dL High 0.70-1.20 [facility] Comment on above: Performed By: #### L 100.0100, L500.2500 ####[facility] [address] [place], [address] ECRCL 24.85 ml/min Low 50-250 [facility] Comment on above: Performed By: #### L 100.0100, L500.2500 ####[facility] [address] [place], [address] GAP 14 Normal 5-15 [facility] Comment on above: Performed By: #### L 100.0100, L500.2500 ####[facility] [address] [place], [address] GFR/1.73 sq M.predicted among non-blacks MDRD (S/P/Bld) [Vol rate/Area] 21 mL/min/{1.73_m2} Low >60 [facility] Comment on above: Result Comment: mL/m in/1.73m2 CKD-EPI Creatinine Equation (2020) Performed By: #### L 100.0100, L500.2500 ####[facility] [address] [place], [address] Glucose [Mass/Vol] 218 mg/dL High 70-99 [facility] Comment on above: Performed By: #### L 100.0100, L500.2500 ####[facility] [address] [place], [address] Potassium [Moles/Vol] 3.9 mmol/L Normal 3.3-5.1 [facility] Comment on above: Performed By: #### L 100.0100, L500.2500 ####[facility] [address] [place], [address] Sodium [Moles/Vol] 133 mmol/L Normal 133-145 [facility] Comment on above: Performed By: #### L 100.0100, L500.2500 ####[facility] [address] [place], [address] Urea nitrogen [Mass/Vol] 68 mg/dL High 4-19 [facility] Comment on above: Performed By: #### L 100.0100, L500.2500 ####[facility] [address] [place], [address] Bedside Glucoseon 02-18-2025 FINGERSTICK GLU 178 mg/dL High 74-106 [facility] Comment on above: Result Comment: Dr Shawn padilla FollowedMANAGEMENT OF PATIENT CARE PER NURSING PROTOCOL Performed By: #### L 501.080 ####[facility] [address] [place], [address] FINGERSTICK GLU 181 mg/dL High 74-106 [facility] Comment on above: Result Comment: Dr Shawn padilla FollowedMANAGEMENT OF PATIENT CARE PER NURSING PROTOCOL Performed By: #### L 501.080 ####[facility] [address] [place], [address] FINGERSTICK GLU 197 mg/dL High 74-106 [facility] Comment on above: Result Comment: VI GEMENT OF PATIENT CARE PER NURSING PROTOCOL Performed By: #### L 501.080 ####[facility] [address] [place], [address] FINGERSTICK GLU 200 mg/dL High 74-106 [facility] Comment on above: Result Comment: VI GEMENT OF PATIENT CARE PER NURSING PROTOCOL Performed By: #### L 501.080 ####[facility] [address] [place], [address] CBC W/Diff, Automatedon 01-26 Anisocytosis Ql (Bld) 2+ Normal [facility] Comment on above: Performed By: #### L 100.0100, L500.2500 ####[facility] [address] [place], [address] OVALOCYTE 2+ Normal [facility] Comment on above: Performed By: #### L 100.0100, L500.2500 ####[facility] [address] [place], [address] PLT EST ADEQUATE Normal ADEQ [facility] Comment on above: Performed By: #### L 100.0100, L500.2500 ####[facility] [address] [place], [address] SMEAR COMMENT SCANNED Normal [facility] Comment on above: Performed By: #### L 100.0100, L500.2500 ####[facility] [address] [place], [address] Basic Metabolic Profile (BMP )on 02-17-2025 BUN/CRE 34.0 RATIO High 10-20 [facility] Comment on above: Performed By: #### L 100.0100, L500.2500 ####[facility] [address] [place], [address] Calcium [Mass/Vol] 9.5 mg/dL Normal 7.6-11.0 [facility] Comment on above: Performed By: #### L 100.0100, L500.2500 ####[facility] [address] [place], [address] Chloride [Moles/Vol] 97 mmol/L Low 98-108 [facility] Comment on above: Performed By: #### L 100.0100, L500.2500 ####[facility] [address] [place], [address] CO2 [Moles/Vol] 22.8 mmol/L Normal 21.0-32.0 [facility] Comment on above: Performed By: #### L 100.0100, L500.2500 ####[facility] [address] [place], [address] Creatinine [Mass/Vol] 2.35 mg/dL High 0.70-1.20 [facility] Comment on above: Performed By: #### L 100.0100, L500.2500 ####[facility] [address] [place], [address] ECRCL 24.22 ml/min Low 50-250 [facility] Comment on above: Performed By: #### L 100.0100, L500.2500 ####[facility] [address] [place], [address] GAP 15 Normal 5-15 [facility] Comment on above: Performed By: #### L 100.0100, L500.2500 ####[facility] [address] [place], [address] GFR/1.73 sq M.predicted among non-blacks MDRD (S/P/Bld) [Vol rate/Area] 21 mL/min/{1.73_m2} Low >60 [facility] Comment on above: Result Comment: mL/m in/1.73m2 CKD-EPI Creatinine Equation (2020) Performed By: #### L 100.0100, L500.2500 ####[facility] [address] [place], [address] Glucose [Mass/Vol] 256 mg/dL High 70-99 [facility] Comment on above: Performed By: #### L 100.0100, L500.2500 ####[facility] [address] [place], [address] Potassium [Moles/Vol] 3.9 mmol/L Normal 3.3-5.1 [facility] Comment on above: Performed By: #### L 100.0100, L500.2500 ####[facility] [address] [place], [address] Sodium [Moles/Vol] 135 mmol/L Normal 133-145 [facility] Comment on above: Performed By: #### L 100.0100, L500.2500 ####[facility] [address] [place], [address] Urea nitrogen [Mass/Vol] 80 mg/dL High 4-19 [facility] Comment on above: Performed By: #### L 100.0100, L500.2500 ####[facility] [address] [place], [address] Bedside Glucoseon 02-17-2025 FINGERSTICK GLU 169 mg/dL High 74-106 [facility] Comment on above: Result Comment: VI GEMENT OF PATIENT CARE PER NURSING PROTOCOL Performed By: #### L 501.080 ####[facility] [address] [place], [address] FINGERSTICK GLU 150 mg/dL High 74-106 [facility] Comment on above: Result Comment: VI GEMENT OF PATIENT CARE PER NURSING PROTOCOL Performed By: #### L 501.080 ####[facility] [address] [place], [address] FINGERSTICK GLU 221 mg/dL High 74-106 [facility] Comment on above: Result Comment: VI GEMENT OF PATIENT CARE PER NURSING PROTOCOL Performed By: #### L 501.080 ####[facility] [address] [place], [address] FINGERSTICK GLU 240 mg/dL High 74-106 [facility] Comment on above: Result Comment: VI GEMENT OF PATIENT CARE PER NURSING PROTOCOL Performed By: #### L 501.080 ####[facility] [address] [place], [address] Blood Gases by [facility] 025 DANIEL TEST Positive Normal [facility] Comment on above: Performed By: #### L 9000.0800 ####[facility] [address] [place], [address] Base excess Calc (Bld) [Moles/Vol] 4 mmol/L High -2 to +2 [facility] Comment on above: Performed By: #### L 9000.0800 ####[facility] [address] [place], [address] Blood Gas Type ART Normal [facility] Comment on above: Performed By: #### L 9000.0800 ####[facility] [address] [place], [address] CO2 [Moles/Vol] 29 mmol/L Normal [facility] Comment on above: Performed By: #### L 9000.0800 ####[facility] [address] [place], [address] FI02 24.0 Normal [facility] Comment on above: Performed By: #### L 9000.0800 ####[facility] [address] [place], [address] HCO3 (Bld) [Moles/Vol] 27.6 mmol/L High 22-26 [facility] Comment on above: Performed By: #### L 9000.0800 ####[facility] [address] [place], [address] Mode PS Normal [facility] Comment on above: Performed By: #### L 9000.0800 ####[facility] [address] [place], [address] O2 Delivery Dev Adult Vent Normal [facility] Comment on above: Performed By: #### L 9000.0800 ####[facility] [address] [place], [address] pCO2 36.5 mmHg Normal 35-45 [facility] Comment on above: Performed By: #### L 9000.0800 ####[facility] [address] [place], [address] PEEP 5 Normal [facility] Comment on above: Performed By: #### L 9000.0800 ####[facility] [address] [place], [address] pH (Bld) 7.49 [pH] High 7.35-7.45 [facility] Comment on above: Performed By: #### L 9000.0800 ####[facility] [address] [place], [address] PO2 65 mmHG Low 75-100 [facility] Comment on above: Performed By: #### L 9000.0800 ####[facility] [address] [place], [address] SITE R Radial Normal [facility] Comment on above: Performed By: #### L 9000.0800 ####[facility] [address] [place], [address] SO2 94 Low 95-99 [facility] Comment on above: Performed By: #### L 9000.0800 ####[facility] [address] [place], [address] CBC W/Diff, Automatedon 05-2 Absolute Lymph 1.14 X10 3/uL Normal 0.83-4.51 [facility] Comment on above: Performed By: #### L 100.0100, L500.2500 ####[facility] [address] [place], [address] Absolute Neut 13.0 X10 3/uL High 2.0-7.7 [facility] Comment on above: Performed By: #### L 100.0100, L500.2500 ####[facility] [address] [place], [address] Basophils/100 WBC (Bld) 0.5 % Normal 0-1 [facility] Comment on above: Performed By: #### L 100.0100, L500.2500 ####[facility] [address] [place], [address] Eosinophils/100 WBC (Bld) 1.3 % Normal 0-5 [facility] Comment on above: Performed By: #### L 100.0100, L500.2500 ####[facility] [address] [place], [address] Erythrocyte distribution width (RBC) [Ratio] 19.9 % High 11.6-14.6 [facility] Comment on above: Performed By: #### L 100.0100, L500.2500 ####[facility] [address] [place], [address] Hematocrit (Bld) [Volume fraction] 30.7 % Low 37-47 [facility] Comment on above: Performed By: #### L 100.0100, L500.2500 ####[facility] [address] [place], [address] Hemoglobin (Bld) [Mass/Vol] 9.0 g/dL Low 12.0-15.0 [facility] Comment on above: Performed By: #### L 100.0100, L500.2500 ####[facility] [address] [place], [address] IG% 0.600 Normal 0.0-0.9 [facility] Comment on above: Result Comment: IG% - Immature Granulocytes (promyelocytes, myelocytes andmetamyelocytes) > 1% indicates that a LEFT SHIFT is Present. Performed By: #### L 100.0100, L500.2500 ####[facility] [address] [place], [address] Lymphocytes/100 WBC (Bld) 7.2 % Low 19-41 [facility] Comment on above: Performed By: #### L 100.0100, L500.2500 ####[facility] [address] [place], [address] MCH (RBC) [Entitic mass] 22.0 pg Low 27.0-32.0 [facility] Comment on above: Performed By: #### L 100.0100, L500.2500 ####[facility] [address] [place], [address] MCHC (RBC) [Mass/Vol] 29.3 g/dL Low 32-36 [facility] Comment on above: Performed By: #### L 100.0100, L500.2500 ####[facility] [address] [place], [address] MCV (RBC) [Entitic vol] 74.9 fL Low 81-99 [facility] Comment on above: Performed By: #### L 100.0100, L500.2500 ####[facility] [address] [place], [address] Monocytes/100 WBC (Bld) 8.0 % Normal 0-10 [facility] Comment on above: Performed By: #### L 100.0100, L500.2500 ####[facility] [address] [place], [address] Neutrophils/100 WBC (Bld) 82.4 % High 47-70 [facility] Comment on above: Performed By: #### L 100.0100, L500.2500 ####[facility] [address] [place], [address] Nucleated RBC (Bld) [#/Vol] 0 10*3/uL Normal 0-5 [facility] Comment on above: Performed By: #### L 100.0100, L500.2500 ####[facility] [address] [place], [address] Platelet mean volume (Bld) [Entitic vol] 10.8 fL Normal 6.2-12.0 [facility] Comment on above: Performed By: #### L 100.0100, L500.2500 ####[facility] [address] [place], [address] Platelets (Bld) [#/Vol] 323 10*3/uL Normal 150-450 [facility] Comment on above: Performed By: #### L 100.0100, L500.2500 ####[facility] [address] [place], [address] RBC (Bld) [#/Vol] 4.10 10*6/uL Low 4.2-5.4 [facility] Comment on above: Performed By: #### L 100.0100, L500.2500 ####[facility] [address] [place], [address] RDW SD 51.8 fl High 35.1-43.9 [facility] Comment on above: Performed By: #### L 100.0100, L500.2500 ####[facility] [address] [place], [address] WBC (Bld) [#/Vol] 15.8 10*3/uL High 4.4-11.0 [facility] Comment on above: Performed By: #### L 100.0100, L500.2500 ####[facility] [address] [place], [address] Chest 1 View (Portable)on Chest 1 View (Portable) Normal [facility] Basic Metabolic Profile (BMP )on 02-16-2025 Urea nitrogen [Mass/Vol] 130 mg/dL Invalid Interpretation Code 01-13 [facility] Comment on above: Result Comment: Crit ical Result(s) Called at:02/16/2025-08:32 by: Salvatore to Rufina Mena??Results read back by same. Performed By: #### L 501.2300, L501.5200, L500.2500 ####[facility] [address] [place], [address] Bedside Glucoseon 02-16-2025 FINGERSTICK GLU 224 mg/dL High 74-106 [facility] Comment on above: Result Comment: VI GEMENT OF PATIENT CARE PER NURSING PROTOCOL Performed By: #### L 501.080 ####[facility] [address] [place], [address] FINGERSTICK GLU 200 mg/dL High 74-106 [facility] Comment on above: Result Comment: VI GEMENT OF PATIENT CARE PER NURSING PROTOCOL Performed By: #### L 501.080 ####[facility] [address] [place], [address] FINGERSTICK GLU 143 mg/dL High 74-106 [facility] Comment on above: Result Comment: VI GEMENT OF PATIENT CARE PER NURSING PROTOCOL Performed By: #### L 501.080 ####[facility] [address] [place], [address] FINGERSTICK GLU 103 mg/dL Normal 74-106 [facility] Comment on above: Result Comment: VI GEMENT OF PATIENT CARE PER NURSING PROTOCOL Performed By: #### L 501.080 ####[facility] [address] [place], [address] FINGERSTICK GLU 153 mg/dL High 74-106 [facility] Comment on above: Result Comment: VI GEMENT OF PATIENT CARE PER NURSING PROTOCOL Performed By: #### L 501.080 ####[facility] [address] [place], [address] FINGERSTICK GLU 192 mg/dL High 74-106 [facility] Comment on above: Result Comment: VI GEMENT OF PATIENT CARE PER NURSING PROTOCOL Performed By: #### L 501.080 ####[facility] [address] [place], [address] CBC W/Diff, Automatedon 05-2 3-2024 Absolute Lymph 1.18 X10 3/uL Normal 0.83-4.51 [facility] Comment on above: Performed By: #### L 100.0100 ####[facility] [address] [place], [address] Absolute Neut 11.2 X10 3/uL High 2.0-7.7 [facility] Comment on above: Performed By: #### L 100.0100 ####[facility] [address] [place], [address] Basophils/100 WBC (Bld) 0.6 % Normal 0-1 [facility] Comment on above: Performed By: #### L 100.0100 ####[facility] [address] [place], [address] Eosinophils/100 WBC (Bld) 1.7 % Normal 0-5 [facility] Comment on above: Performed By: #### L 100.0100 ####[facility] [address] [place], [address] Erythrocyte distribution width (RBC) [Ratio] 19.5 % High 11.6-14.6 [facility] Comment on above: Performed By: #### L 100.0100 ####[facility] [address] [place], [address] Hematocrit (Bld) [Volume fraction] 28.9 % Low 37-47 [facility] Comment on above: Performed By: #### L 100.0100 ####[facility] [address] [place], [address] Hemoglobin (Bld) [Mass/Vol] 8.7 g/dL Low 12.0-15.0 [facility] Comment on above: Performed By: #### L 100.0100 ####[facility] [address] [place], [address] IG% 0.600 Normal 0.0-0.9 [facility] Comment on above: Result Comment: IG% - Immature Granulocytes (promyelocytes, myelocytes andmetamyelocytes) > 1% indicates that a LEFT SHIFT is Present. Performed By: #### L 100.0100 ####[facility] [address] [place], [address] Lymphocytes/100 WBC (Bld) 8.5 % Low 19-41 [facility] Comment on above: Performed By: #### L 100.0100 ####[facility] [address] [place], [address] MCH (RBC) [Entitic mass] 22.2 pg Low 27.0-32.0 [facility] Comment on above: Performed By: #### L 100.0100 ####[facility] [address] [place], [address] MCHC (RBC) [Mass/Vol] 30.1 g/dL Low 32-36 [facility] Comment on above: Performed By: #### L 100.0100 ####[facility] [address] [place], [address] MCV (RBC) [Entitic vol] 73.7 fL Low 81-99 [facility] Comment on above: Performed By: #### L 100.0100 ####[facility] [address] [place], [address] Monocytes/100 WBC (Bld) 8.4 % Normal 0-10 [facility] Comment on above: Performed By: #### L 100.0100 ####[facility] [address] [place], [address] Neutrophils/100 WBC (Bld) 80.2 % High 47-70 [facility] Comment on above: Performed By: #### L 100.0100 ####[facility] [address] [place], [address] Nucleated RBC (Bld) [#/Vol] 0 10*3/uL Normal 0-5 [facility] Comment on above: Performed By: #### L 100.0100 ####[facility] [address] [place], [address] Platelet mean volume (Bld) [Entitic vol] 11.1 fL Normal 6.2-12.0 [facility] Comment on above: Performed By: #### L 100.0100 ####[facility] [address] [place], [address] Platelets (Bld) [#/Vol] 257 10*3/uL Normal 150-450 [facility] Comment on above: Performed By: #### L 100.0100 ####[facility] [address] [place], [address] RBC (Bld) [#/Vol] 3.92 10*6/uL Low 4.2-5.4 [facility] Comment on above: Performed By: #### L 100.0100 ####[facility] [address] [place], [address] RDW SD 49.7 fl High 35.1-43.9 [facility] Comment on above: Performed By: #### L 100.0100 ####[facility] [address] [place], [address] WBC (Bld) [#/Vol] 13.9 10*3/uL High 4.4-11.0 [facility] Comment on above: Performed By: #### L 100.0100 ####[facility] [address] [place], [address] CPK Total, Creatine Kinaseon 02-16-2025 CPK TOTAL 34 U/L Normal 24-195 [facility] Comment on above: Performed By: #### L 501.3620 ####[facility] [address] [place], [address] Magnesiumon 02-16-2025 Magnesium [Mass/Vol] 2.3 mg/dL High 1.5-2.2 [facility] Comment on above: Performed By: #### L 501.2300, L501.5200, L500.2500 ####[facility] [address] [place], [address] Phosphoruson 02-16-2025 Phosphate [Mass/Vol] 4.7 mg/dL High 2.7-4.5 [facility] Comment on above: Performed By: #### L 501.2300, L501.5200, L500.2500 ####[facility] [address] [place], [address] Basic Metabolic Profile (BMP )on 02-15-2025 BUN/CRE 53.6 RATIO High 10-20 [facility] Comment on above: Performed By: #### L 100.0100, L501.5200, L500.2500 ####[facility] [address] [place], [address] Calcium [Mass/Vol] 8.6 mg/dL Normal 7.6-11.0 [facility] Comment on above: Performed By: #### L 100.0100, L501.5200, L500.2500 ####[facility] [address] [place], [address] Chloride [Moles/Vol] 96 mmol/L Low 98-108 [facility] Comment on above: Performed By: #### L 100.0100, L501.5200, L500.2500 ####[facility] [address] [place], [address] CO2 [Moles/Vol] 26.7 mmol/L Normal 21.0-32.0 [facility] Comment on above: Performed By: #### L 100.0100, L501.5200, L500.2500 ####[facility] [address] [place], [address] Creatinine [Mass/Vol] 2.22 mg/dL High 0.70-1.20 [facility] Comment on above: Performed By: #### L 100.0100, L501.5200, L500.2500 ####[facility] [address] [place], [address] ECRCL 26.18 ml/min Low 50-250 [facility] Comment on above: Performed By: #### L 100.0100, L501.5200, L500.2500 ####[facility] [address] [place], [address] GAP 17 High 5-15 [facility] Comment on above: Performed By: #### L 100.0100, L501.5200, L500.2500 ####[facility] [address] [place], [address] GFR/1.73 sq M.predicted among non-blacks MDRD (S/P/Bld) [Vol rate/Area] 22 mL/min/{1.73_m2} Low >60 [facility] Comment on above: Result Comment: mL/m in/1.73m2 CKD-EPI Creatinine Equation (2020) Performed By: #### L 100.0100, L501.5200, L500.2500 ####[facility] [address] [place], [address] Glucose [Mass/Vol] 237 mg/dL High 70-99 [facility] Comment on above: Performed By: #### L 100.0100, L501.5200, L500.2500 ####[facility] [address] [place], [address] Potassium [Moles/Vol] 3.0 mmol/L Low 3.3-5.1 [facility] Comment on above: Performed By: #### L 100.0100, L501.5200, L500.2500 ####[facility] [address] [place], [address] Sodium [Moles/Vol] 139 mmol/L Normal 133-145 [facility] Comment on above: Performed By: #### L 100.0100, L501.5200, L500.2500 ####[facility] [address] [place], [address] Urea nitrogen [Mass/Vol] 119 mg/dL Invalid Interpretation Code 4-19 [facility] Comment on above: Result Comment: Crit ical Result(s) Called at: 0515 by:??HERMELINDO HAVEN TO CHON Results read back by same. Performed By: #### L 100.0100, L501.5200, L500.2500 ####[facility] [address] [place], [address] Bedside Glucoseon 02-15-2025 FINGERSTICK GLU 220 mg/dL High 74-106 [facility] Comment on above: Result Comment: VI GEMENT OF PATIENT CARE PER NURSING PROTOCOL Performed By: #### L 501.080 ####[facility] [address] [place], [address] FINGERSTICK GLU 208 mg/dL High 74-106 [facility] Comment on above: Result Comment: VI GEMENT OF PATIENT CARE PER NURSING PROTOCOL Performed By: #### L 501.080 ####[facility] [address] [place], [address] FINGERSTICK GLU 241 mg/dL High -106 [facility] Comment on above: Result Comment: VI GEMENT OF PATIENT CARE PER NURSING PROTOCOL Performed By: #### L 501.080 ####[facility] [address] [place], [address] FINGERSTICK GLU 201 mg/dL High [facility]106 [facility] Comment on above: Result Comment: VI GEMENT OF PATIENT CARE PER NURSING PROTOCOL Performed By: #### L 501.080 ####[facility] [address] [place], [address] FINGERSTICK GLU 222 mg/dL High 74-106 [facility] Comment on above: Result Comment: VI GEMENT OF PATIENT CARE PER NURSING PROTOCOL Performed By: #### L 501.080 ####[facility] [address] [place], [address] FINGERSTICK GLU 232 mg/dL High [address] [place] [address] Comment on above: Result Comment: VI GEMENT OF PATIENT CARE PER NURSING PROTOCOL Performed By: #### L 501.080 ####[facility] [address] [place], [address] Blood Gases by [facility] 05-22-2 025 DANIEL TEST Positive Normal [facility] Comment on above: Performed By: #### L 9000.0800 ####[facility] [address] [place], [address] Base excess Calc (Bld) [Moles/Vol] 10 mmol/L High -2 to +2 [facility] Comment on above: Performed By: #### L 9000.0800 ####[facility] [address] [place], [address] Blood Gas Type ART Normal [facility] Comment on above: Performed By: #### L 0.0800 ####[facility] [address] [place], [address] CO2 [Moles/Vol] 34 mmol/L Normal [facility] Comment on above: Performed By: #### L 9000.0800 ####[facility] [address] [place], [address] FI02 30.0 Normal [facility] Comment on above: Performed By: #### L 0.0800 ####[facility] [address] [place], [address] HCO3 (Bld) [Moles/Vol] 32.7 mmol/L High 22-26 [facility] Comment on above: Performed By: #### L 9000.0800 ####[facility] [address] [place], [address] Mode AC Normal [facility] Comment on above: Performed By: #### L 0.0800 ####[facility] [address] [place], [address] O2 Delivery Dev Adult Vent Normal [facility] Comment on above: Performed By: #### L 0.0800 ####[facility] [address] [place], [address] pCO2 40.4 mmHg Normal 35-45 [facility] Comment on above: Performed By: #### L 0.0800 ####[facility] [address] [place], [address] PEEP 5 Normal [facility] Comment on above: Performed By: #### L 9000.0800 ####[facility] [address] [place], [address] pH (Bld) 7.52 [pH] High 7.35-7.45 [facility] Comment on above: Performed By: #### L 9000.0800 ####[facility] [address] [place], [address] PO2 72 mmHG Low 75-100 [facility] Comment on above: Performed By: #### L 9000.0800 ####[facility] [address] [place], [address] RR 14 Normal [facility] Comment on above: Performed By: #### L 9000.0800 ####[facility] [address] [place], [address] SITE R Radial Normal [facility] Comment on above: Performed By: #### L 9000.0800 ####[facility] [address] [place], [address] SO2 96 Normal 95-99 [facility] Comment on above: Performed By: #### L 9000.0800 ####[facility] [address] [place], [address] Vt 450.0 mL Normal [facility] Comment on above: Performed By: #### L 9000.0800 ####[facility] [address] [place], [address] CBC W/Diff, Automatedon 05-2 -2024 Absolute Lymph 0.92 X10 3/uL Normal 0.83-4.51 [facility] Comment on above: Performed By: #### L 100.0100, L501.5200, L500.2500 ####[facility] [address] [place], [address] Absolute Neut 9.8 X10 3/uL High 2.0-7.7 [facility] Comment on above: Performed By: #### L 100.0100, L501.5200, L500.2500 ####[facility] [address] [place], [address] Basophils/100 WBC (Bld) 0.7 % Normal 0-1 [facility] Comment on above: Performed By: #### L 100.0100, L501.5200, L500.2500 ####[facility] [address] [place], [address] Eosinophils/100 WBC (Bld) 1.9 % Normal 0-5 [facility] Comment on above: Performed By: #### L 100.0100, L501.5200, L500.2500 ####[facility] [address] [place], [address] Erythrocyte distribution width (RBC) [Ratio] 19.1 % High 11.6-14.6 [facility] Comment on above: Performed By: #### L 100.0100, L501.5200, L500.2500 ####[facility] [address] [place], [address] Hematocrit (Bld) [Volume fraction] 28.9 % Low 37-47 [facility] Comment on above: Performed By: #### L 100.0100, L501.5200, L500.2500 ####[facility] [address] [place], [address] Hemoglobin (Bld) [Mass/Vol] 8.5 g/dL Low 12.0-15.0 [facility] Comment on above: Performed By: #### L 100.0100, L501.5200, L500.2500 ####[facility] [address] [place], [address] IG% 0.600 Normal 0.0-0.9 [facility] Comment on above: Result Comment: IG% - Immature Granulocytes (promyelocytes, myelocytes andmetamyelocytes) > 1% indicates that a LEFT SHIFT is Present. Performed By: #### L 100.0100, L501.5200, L500.2500 ####[facility] [address] [place], [address] Lymphocytes/100 WBC (Bld) 7.6 % Low 19-41 [facility] Comment on above: Performed By: #### L 100.0100, L501.5200, L500.2500 ####[facility] [address] [place], [address] MCH (RBC) [Entitic mass] 21.7 pg Low 27.0-32.0 [facility] Comment on above: Performed By: #### L 100.0100, L501.5200, L500.2500 ####[facility] [address] [place], [address] MCHC (RBC) [Mass/Vol] 29.4 g/dL Low 32-36 [facility] Comment on above: Performed By: #### L 100.0100, L501.5200, L500.2500 ####[facility] [address] [place], [address] MCV (RBC) [Entitic vol] 73.9 fL Low 81-99 [facility] Comment on above: Performed By: #### L 100.0100, L501.5200, L500.2500 ####[facility] [address] [place], [address] Monocytes/100 WBC (Bld) 8.4 % Normal 0-10 [facility] Comment on above: Performed By: #### L 100.0100, L501.5200, L500.2500 ####[facility] [address] [place], [address] Neutrophils/100 WBC (Bld) 80.8 % High 47-70 [facility] Comment on above: Performed By: #### L 100.0100, L501.5200, L500.2500 ####[facility] [address] [place], [address] Nucleated RBC (Bld) [#/Vol] 0 10*3/uL Normal 0-5 [facility] Comment on above: Performed By: #### L 100.0100, L501.5200, L500.2500 ####[facility] [address] [place], [address] Platelet mean volume (Bld) [Entitic vol] 10.9 fL Normal 6.2-12.0 [facility] Comment on above: Performed By: #### L 100.0100, L501.5200, L500.2500 ####[facility] [address] [place], [address] Platelets (Bld) [#/Vol] 282 10*3/uL Normal 150-450 [facility] Comment on above: Performed By: #### L 100.0100, L501.5200, L500.2500 ####[facility] [address] [place], [address] RBC (Bld) [#/Vol] 3.91 10*6/uL Low 4.2-5.4 [facility] Comment on above: Performed By: #### L 100.0100, L501.5200, L500.2500 ####[facility] [address] [place], [address] RDW SD 47.8 fl High 35.1-43.9 [facility] Comment on above: Performed By: #### L 100.0100, L501.5200, L500.2500 ####[facility] [address] [place], [address] WBC (Bld) [#/Vol] 12.1 10*3/uL High 4.4-11.0 [facility] Comment on above: Performed By: #### L 100.0100, L501.5200, L500.2500 ####[facility] [address] [place], [address] Chest 1 View (Portable)on Chest 1 View (Portable) Normal [facility] Magnesiumon 02-15-2025 Magnesium [Mass/Vol] 2.1 mg/dL Normal 1.5-2.2 [facility] Comment on above: Performed By: #### L 100.0100, L501.5200, L500.2500 ####[facility] [address] [place], [address] Phosphoruson 02-15-2025 Phosphate [Mass/Vol] 4.0 mg/dL Normal 2.7-4.5 [facility] Comment on above: Performed By: #### L 501.2300 ####[facility] [address] [place], [address] Basic Metabolic Profile (BMP )on 02-14-2025 BUN/CRE 52.2 RATIO High 10-20 [facility] Comment on above: Performed By: #### L 500.2500 ####[facility] [address] [place], [address] Calcium [Mass/Vol] 8.5 mg/dL Normal 7.6-11.0 [facility] Comment on above: Performed By: #### L 500.2500 ####[facility] [address] [place], [address] Chloride [Moles/Vol] 93 mmol/L Low 98-108 [facility] Comment on above: Performed By: #### L 500.2500 ####[facility] [address] [place], [address] CO2 [Moles/Vol] 28.9 mmol/L Normal 21.0-32.0 [facility] Comment on above: Performed By: #### L 500.2500 ####[facility] [address] [place], [address] Creatinine [Mass/Vol] 2.49 mg/dL High 0.70-1.20 [facility] Comment on above: Performed By: #### L 500.2500 ####[facility] [address] [place], [address] ECRCL 23.53 ml/min Low 50-250 [facility] Comment on above: Performed By: #### L 500.2500 ####[facility] [address] [place], [address] GAP 17 High 5-15 [facility] Comment on above: Performed By: #### L 500.2500 ####[facility] [address] [place], [address] GFR/1.73 sq M.predicted among non-blacks MDRD (S/P/Bld) [Vol rate/Area] 20 mL/min/{1.73_m2} Low >60 [facility] Comment on above: Result Comment: mL/m in/1.73m2 CKD-EPI Creatinine Equation (2020) Performed By: #### L 500.2500 ####[facility] [address] [place], [address] Glucose [Mass/Vol] 255 mg/dL High 70-99 [facility] Comment on above: Performed By: #### L 500.2500 ####[facility] [address] [place], [address] Potassium [Moles/Vol] 3.3 mmol/L Normal 3.3-5.1 [facility] Comment on above: Result Comment: Hemo lysis present, Results??could be affected.?? Performed By: #### L 500.2500 ####[facility] [address] [place], [address] Sodium [Moles/Vol] 140 mmol/L Normal 133-145 [facility] Comment on above: Performed By: #### L 500.2500 ####[facility] [address] [place], [address] Urea nitrogen [Mass/Vol] 130 mg/dL Invalid Interpretation Code 4-19 [facility] Comment on above: Result Comment: Crit ical Result(s) Called at: 0646 by: HERMELINDO BURNETT??Results read back by same. Performed By: #### L 500.2500 ####[facility] [address] [place], [address] Bedside Glucoseon 02-14-2025 FINGERSTICK GLU 207 mg/dL High 74-106 [facility] Comment on above: Result Comment: VI GEMENT OF PATIENT CARE PER NURSING PROTOCOL Performed By: #### L 501.080 ####[facility] [address] [place], [address] FINGERSTICK GLU 169 mg/dL High 74-106 [facility] Comment on above: Result Comment: VI GEMENT OF PATIENT CARE PER NURSING PROTOCOL Performed By: #### L 501.080 ####[facility] [address] [place], [address] FINGERSTICK GLU 175 mg/dL High 74-106 [facility] Comment on above: Result Comment: VI GEMENT OF PATIENT CARE PER NURSING PROTOCOL Performed By: #### L 501.080 ####[facility] [address] [facility] [address] FINGERSTICK GLU 166 mg/dL High 74-106 [facility] Comment on above: Result Comment: VI GEMENT OF PATIENT CARE PER NURSING PROTOCOL Performed By: #### L 501.080 ####[facility] [address] [place], [address] FINGERSTICK GLU 219 mg/dL High 74-106 [facility] Comment on above: Result Comment: VI GEMENT OF PATIENT CARE PER NURSING PROTOCOL Performed By: #### L 501.080 ####[facility] [address] [place], [address] FINGERSTICK GLU 289 mg/dL High 74-106 [facility] Comment on above: Result Comment: VI GEMENT OF PATIENT CARE PER NURSING PROTOCOL Performed By: #### L 501.080 ####[facility] [address] [place], [address] Blood Gases by [facility] 025 DANIEL TEST Positive Normal [facility] Comment on above: Performed By: #### L 9000.0800 ####[facility] [address] [place], [address] Base excess Calc (Bld) [Moles/Vol] 12 mmol/L High -2 to +2 [facility] Comment on above: Performed By: #### L 9000.0800 ####[facility] [address] [place], [address] Blood Gas Type ART Normal [facility] Comment on above: Performed By: #### L 9000.0800 ####[facility] [address] [place], [address] CO2 [Moles/Vol] 37 mmol/L Normal [facility] Comment on above: Performed By: #### L 9000.0800 ####[facility] [address] [place], [address] FI02 30.0 Normal [facility] Comment on above: Performed By: #### L 9000.0800 ####[facility] [address] [place], [address] HCO3 (Bld) [Moles/Vol] 35.2 mmol/L High 22-26 [facility] Comment on above: Performed By: #### L 9000.0800 ####[facility] [address] [place], [address] Mode AC Normal [facility] Comment on above: Performed By: #### L 9000.0800 ####[facility] [address] [place], [address] O2 Delivery Dev Adult Vent Normal [facility] Comment on above: Performed By: #### L 9000.0800 ####[facility] [address] [place], [address] pCO2 44.3 mmHg Normal 35-45 [facility] Comment on above: Performed By: #### L 9000.0800 ####[facility] [address] [place], [address] PEEP 5 Normal [facility] Comment on above: Performed By: #### L 9000.0800 ####[facility] [address] [place], [address] pH (Bld) 7.51 [pH] High 7.35-7.45 [facility] Comment on above: Performed By: #### L 9000.0800 ####[facility] [address] [place], [address] PO2 66 mmHG Low 75-100 [facility] Comment on above: Performed By: #### L 9000.0800 ####[facility] [address] [place], [address] RR 14 Normal [facility] Comment on above: Performed By: #### L 9000.0800 ####[facility] [address] [place], [address] SITE L Radial Normal [facility] Comment on above: Performed By: #### L 9000.0800 ####[facility] [address] [place], [address] SO2 94 Low 95-99 [facility] Comment on above: Performed By: #### L 9000.0800 ####[facility] [address] [place], [address] Vt 450.0 mL Normal [facility] Comment on above: Performed By: #### L 9000.0800 ####[facility] [address] [place], [address] CBC W/Diff, Automatedon 05-2 -2024 Absolute Lymph 1.00 X10 3/uL Normal 0.83-4.51 [facility] Comment on above: Performed By: #### L 100.0100 ####[facility] [address] [place], [address] Absolute Neut 8.8 X10 3/uL High 2.0-7.7 [facility] Comment on above: Performed By: #### L 100.0100 ####[facility] [address] [place], [address] Basophils/100 WBC (Bld) 0.5 % Normal 0-1 [facility] Comment on above: Performed By: #### L 100.0100 ####[facility] [address] [place], [address] Eosinophils/100 WBC (Bld) 1.9 % Normal 0-5 [facility] Comment on above: Performed By: #### L 100.0100 ####[facility] [address] [place], [address] Erythrocyte distribution width (RBC) [Ratio] 18.5 % High 11.6-14.6 [facility] Comment on above: Performed By: #### L 100.0100 ####[facility] [address] [place], [address] Hematocrit (Bld) [Volume fraction] 27.7 % Low 37-47 [facility] Comment on above: Performed By: #### L 100.0100 ####[facility] [address] [place], [address] Hemoglobin (Bld) [Mass/Vol] 8.1 g/dL Low 12.0-15.0 [facility] Comment on above: Performed By: #### L 100.0100 ####[facility] [address] [place], [address] IG% 0.500 Normal 0.0-0.9 [facility] Comment on above: Result Comment: IG% - Immature Granulocytes (promyelocytes, myelocytes andmetamyelocytes) > 1% indicates that a LEFT SHIFT is Present. Performed By: #### L 100.0100 ####[facility] [address] [place], [address] Lymphocytes/100 WBC (Bld) 8.8 % Low 19-41 [facility] Comment on above: Performed By: #### L 100.0100 ####[facility] [address] [place], [address] MCH (RBC) [Entitic mass] 21.3 pg Low 27.0-32.0 [facility] Comment on above: Performed By: #### L 100.0100 ####[facility] [address] [place], [address] MCHC (RBC) [Mass/Vol] 29.2 g/dL Low 32-36 [facility] Comment on above: Performed By: #### L 100.0100 ####[facility] [address] [place], [address] MCV (RBC) [Entitic vol] 72.9 fL Low 81-99 [facility] Comment on above: Performed By: #### L 100.0100 ####[facility] [address] [place], [address] Monocytes/100 WBC (Bld) 10.4 % High 0-10 [facility] Comment on above: Performed By: #### L 100.0100 ####[facility] [address] [place], [address] Neutrophils/100 WBC (Bld) 77.9 % High 47-70 [facility] Comment on above: Performed By: #### L 100.0100 ####[facility] [address] [place], [address] Nucleated RBC (Bld) [#/Vol] 0 10*3/uL Normal 0-5 [facility] Comment on above: Performed By: #### L 100.0100 ####[facility] [address] [place], [address] Platelet mean volume (Bld) [Entitic vol] 10.4 fL Normal 6.2-12.0 [facility] Comment on above: Performed By: #### L 100.0100 ####[facility] [address] [place], [address] Platelets (Bld) [#/Vol] 249 10*3/uL Normal 150-450 [facility] Comment on above: Performed By: #### L 100.0100 ####[facility] [address] [place], [address] RBC (Bld) [#/Vol] 3.80 10*6/uL Low 4.2-5.4 [facility] Comment on above: Performed By: #### L 100.0100 ####[facility] [address] [place], [address] RDW SD 46.8 fl High 35.1-43.9 [facility] Comment on above: Performed By: #### L 100.0100 ####[facility] [address] [place], [address] WBC (Bld) [#/Vol] 11.3 10*3/uL High 4.4-11.0 [facility] Comment on above: Performed By: #### L 100.0100 ####[facility] [address] [place], [address] Chest 1 View (Portable)on Chest 1 View (Portable) Normal [facility] Chest 1 View (Portable) Normal [facility] L3890.6102on 02-14-2025 HEP B Surf Ag Non-Reactive Normal Nonreactive [facility] Comment on above: Order Comment: Reaso n for Exam: may need outpatient dialysis Result Comment: Reac tive: Presumptive evidence of HBV. Repeatedly reactivesamples must be confirmed using a neutralization test([employer] HBsAg Confirmatory Test)Non-Reactive: HBsAg not detected; does not exclude thepossibility of exposure to HBV Performed By: #### L 3890.6102 ####[facility] [address] [place], [address] MR/POSTOP.ANEon 02-14-2025 MR/POSTOP.ANE Normal [facility] Operative Reporton Operative Report Normal [facility] Basic Metabolic Profile (BMP )on 02-13-2025 BUN/CRE 48.4 RATIO High 10-20 [facility] Comment on above: Performed By: #### L 500.2500 ####[facility] [address] [place], [address] Calcium [Mass/Vol] 8.1 mg/dL Normal 7.6-11.0 [facility] Comment on above: Performed By: #### L 500.2500 ####[facility] [address] [place], [address] Chloride [Moles/Vol] 93 mmol/L Low 98-108 [facility] Comment on above: Performed By: #### L 500.2500 ####[facility] [address] [place], [address] CO2 [Moles/Vol] 28.2 mmol/L Normal 21.0-32.0 [facility] Comment on above: Performed By: #### L 500.2500 ####[facility] [address] [place], [address] Creatinine [Mass/Vol] 2.50 mg/dL High 0.70-1.20 [facility] Comment on above: Performed By: #### L 500.2500 ####[facility] [address] [place], [address] ECRCL 23.34 ml/min Low 50-250 [facility] Comment on above: Performed By: #### L 500.2500 ####[facility] [address] [place], [address] GAP 17 High 5-15 [facility] Comment on above: Performed By: #### L 500.2500 ####[facility] [address] [place], [address] GFR/1.73 sq M.predicted among non-blacks MDRD (S/P/Bld) [Vol rate/Area] 19 mL/min/{1.73_m2} Low >60 [facility] Comment on above: Result Comment: mL/m in/1.73m2 CKD-EPI Creatinine Equation (2020) Performed By: #### L 500.2500 ####[facility] [address] [place], [address] Glucose [Mass/Vol] 450 mg/dL High 70-99 [facility] Comment on above: Performed By: #### L 500.2500 ####[facility] [address] [place], [address] Potassium [Moles/Vol] 3.1 mmol/L Low 3.3-5.1 [facility] Comment on above: Performed By: #### L 500.2500 ####[facility] [address] [place], [address] Sodium [Moles/Vol] 138 mmol/L Normal 133-145 [facility] Comment on above: Performed By: #### L 500.2500 ####[facility] [address] [place], [address] Urea nitrogen [Mass/Vol] 121 mg/dL Invalid Interpretation Code 01-13 [facility] Comment on above: Result Comment: Crit ical Result(s) Called at: 0426 by: MINERVA MANTILLA??Results read back by same. Performed By: #### L 500.2500 ####[facility] [address] [place], [address] Bedside Glucoseon 02-13-2025 FINGERSTICK GLU 341 mg/dL High 74-106 [facility] Comment on above: Result Comment: VI GEMENT OF PATIENT CARE PER NURSING PROTOCOL Performed By: #### L 501.080 ####[facility] [address] [place], [address] FINGERSTICK GLU 313 mg/dL High 74-106 [facility] Comment on above: Result Comment: VI GEMENT OF PATIENT CARE PER NURSING PROTOCOL Performed By: #### L 501.080 ####[facility] [address] [place], [address] FINGERSTICK GLU 355 mg/dL High 74-106 [facility] Comment on above: Result Comment: VI GEMENT OF PATIENT CARE PER NURSING PROTOCOL Performed By: #### L 501.080 ####[facility] [address] [place], [address] FINGERSTICK GLU 410 mg/dL High 74-106 [facility] Comment on above: Result Comment: VI GEMENT OF PATIENT CARE PER NURSING PROTOCOL Performed By: #### L 501.080 ####[facility] [address] [place], [address] FINGERSTICK GLU 413 mg/dL High 74-106 [facility] Comment on above: Result Comment: VI GEMENT OF PATIENT CARE PER NURSING PROTOCOL Performed By: #### L 501.080 ####[facility] [address] [place], [address] FINGERSTICK GLU 389 mg/dL High 74-106 [facility] Comment on above: Result Comment: VI GEMENT OF PATIENT CARE PER NURSING PROTOCOL Performed By: #### L 501.080 ####[facility] [address] [place], [address] FINGERSTICK GLU 418 mg/dL High 74-106 [facility] Comment on above: Result Comment: VI GEMENT OF PATIENT CARE PER NURSING PROTOCOL Performed By: #### L 501.080 ####[facility] [address] [place], [address] Blood Gases by [facility] 025 Base excess Calc (Bld) [Moles/Vol] 12 mmol/L High -2 to +2 [facility] Comment on above: Performed By: #### L 9000.0800 ####[facility] [address] [place], [address] Blood Gas Type ART Normal [facility] Comment on above: Performed By: #### L 9000.0800 ####[facility] [address] [place], [address] CO2 [Moles/Vol] 38 mmol/L Normal [facility] Comment on above: Performed By: #### L 9000.0800 ####[facility] [address] [place], [address] FI02 30.0 Normal [facility] Comment on above: Performed By: #### L 9000.0800 ####[facility] [address] [place], [address] HCO3 (Bld) [Moles/Vol] 36.0 mmol/L High 22-26 [facility] Comment on above: Performed By: #### L 9000.0800 ####[facility] [address] [place], [address] Mode AC Normal [facility] Comment on above: Performed By: #### L 9000.0800 ####[facility] [address] [place], [address] O2 Delivery Dev Adult Vent Normal [facility] Comment on above: Performed By: #### L 9000.0800 ####[facility] [address] [place], [address] pCO2 49.2 mmHg High 35-45 [facility] Comment on above: Performed By: #### L 9000.0800 ####[facility] [address] [place], [address] PEEP 5 Normal [facility] Comment on above: Performed By: #### L 9000.0800 ####[facility] [address] [place], [address] pH (Bld) 7.47 [pH] High 7.35-7.45 [facility] Comment on above: Performed By: #### L 9000.0800 ####[facility] [address] [place], [address] PO2 52 mmHG Low 75-100 [facility] Comment on above: Performed By: #### L 9000.0800 ####[facility] [address] [place], [address] SITE R Radial Normal [facility] Comment on above: Performed By: #### L 9000.0800 ####[facility] [address] [place], [address] SO2 88 Low 95-99 [facility] Comment on above: Performed By: #### L 9000.0800 ####[facility] [address] [place], [address] DANIEL TEST Positive Normal [facility] Comment on above: Performed By: #### L 9000.0800 ####[facility] [address] [place], [address] Base excess Calc (Bld) [Moles/Vol] 11 mmol/L High -2 to +2 [facility] Comment on above: Performed By: #### L 9000.0800 ####[facility] [address] [place], [address] Blood Gas Type ART Normal [facility] Comment on above: Performed By: #### L 9000.0800 ####[facility] [address] [place], [address] CO2 [Moles/Vol] 36 mmol/L Normal [facility] Comment on above: Performed By: #### L 9000.0800 ####[facility] [address] [place], [address] FI02 30.0 Normal [facility] Comment on above: Performed By: #### L 9000.0800 ####[facility] [address] [place], [address] HCO3 (Bld) [Moles/Vol] 34.6 mmol/L High 22-26 [facility] Comment on above: Performed By: #### L 9000.0800 ####[facility] [address] [place], [address] Mode AC Normal [facility] Comment on above: Performed By: #### L 9000.0800 ####[facility] [address] [place], [address] O2 Delivery Dev Adult Vent Normal [facility] Comment on above: Performed By: #### L 9000.0800 ####[facility] [address] [place], [address] pCO2 44.5 mmHg Normal 35-45 [facility] Comment on above: Performed By: #### L 9000.0800 ####[facility] [address] [place], [address] PEEP 5 Normal [facility] Comment on above: Performed By: #### L 9000.0800 ####[facility] [address] [place], [address] pH (Bld) 7.50 [pH] High 7.35-7.45 [facility] Comment on above: Performed By: #### L 9000.0800 ####[facility] [address] [place], [address] PO2 60 mmHG Low 75-100 [facility] Comment on above: Performed By: #### L 9000.0800 ####[facility] [address] [place], [address] RR 14 Normal [facility] Comment on above: Performed By: #### L 9000.0800 ####[facility] [address] [place], [address] SITE R Radial Normal [facility] Comment on above: Performed By: #### L 9000.0800 ####[facility] [address] [place], [address] SO2 92 Low 95-99 [facility] Comment on above: Performed By: #### L 9000.0800 ####[facility] [address] [place], [address] Vt 450.0 mL Normal [facility] Comment on above: Performed By: #### L 9000.0800 ####[facility] [address] [place], [place], [address] Chest 1 View (Portable)on Chest 1 View (Portable) Normal [facility] Consultation - Surgicalon Consultation - Surgical Normal [facility] Hemoglobin A1con 02-13-2025 HbA1c (Bld) [Mass fraction] 7.1 % High <=5.6 [facility] Comment on above: Result Comment: Norm al < 5.7 % Prediabetic 5.7 - 6.4 % Diabetic >or= 6.5 % Please note range changes. Performed By: #### L 501.4327 ####[facility] [address] [place], [place], [address] Absolute lymphocyte countOrd ered By: Herbert Cardona on 02-12-2025 Lymphocytes Auto (Unsp spec) [#/Vol] 0.88 10*3/uL 0.83-4.51 [facility] Absolute neutrophil countOrd ered By: Herbert Cardona on 02-12-2025 Neutrophils (Bld) [#/Vol] 8.5 10*3/uL High 2.0-7.7 [facility] Anion gap in Serum or Plasma Ordered By: Zachery Gomez on 02-12-2025 Anion gap [Moles/Vol] 13 mmol/L 02-08 [facility] Assessment of wrist artery p atency prior to arterial punctureOrdered By: Herbert Cardona on 02-12-2025 Arterial patency Wrist artery --pre arterial puncture Positive [facility] Automated lymphocyte count a s percentage of total leukocytesOrdered By: Herbert Cardona on 02-12-2025 Lymphocytes/100 WBC Auto (Unsp spec) 8.1 % Low [facility] BUN/creatinine ratioOrdered By: Zachery Gomez on 02-12-2025 Urea nitrogen/Creatinine [Mass ratio] 46.6 mg/mg High 07-16 [facility] Basic Metabolic Profile (BMP )on 02-12-2025 BUN/CRE 46.6 RATIO High 07-16 [facility] Comment on above: Performed By: #### L 500.2500 ####[facility] [address] [place], [address] Calcium [Mass/Vol] 8.3 mg/dL Normal 7.6-11.0 [facility] Comment on above: Performed By: #### L 500.2500 ####[facility] [address] [place], [address] Chloride [Moles/Vol] 94 mmol/L Low 98-108 [facility] Comment on above: Performed By: #### L 500.2500 ####[facility] [address] [place], [address] CO2 [Moles/Vol] 30.1 mmol/L Normal 21.0-32.0 [facility] Comment on above: Performed By: #### L 500.2500 ####[facility] [address] [place], [address] Creatinine [Mass/Vol] 2.36 mg/dL High 0.70-1.20 [facility] Comment on above: Performed By: #### L 500.2500 ####[facility] [address] [place], [address] ECRCL 24.73 ml/min Low 50-250 [facility] Comment on above: Performed By: #### L 500.2500 ####[facility] [address] [place], [address] GAP 13 Normal 5-15 [facility] Comment on above: Performed By: #### L 500.2500 ####[facility] [address] [place], [address] GFR/1.73 sq M.predicted among non-blacks MDRD (S/P/Bld) [Vol rate/Area] 21 mL/min/{1.73_m2} Low >60 [facility] Comment on above: Result Comment: mL/m in/1.73m2 CKD-EPI Creatinine Equation (2020) Performed By: #### L 500.2500 ####[facility] [address] [place], [address] Glucose [Mass/Vol] 457 mg/dL Invalid Interpretation Code 70-99 [facility] Comment on above: Result Comment: Crit ical Result(s) Called at 0610: by: KD JONES. ??Results read back by same. Performed By: #### L 500.2500 ####[facility] [address] [place], [address] Potassium [Moles/Vol] 3.4 mmol/L Normal 3.3-5.1 [facility] Comment on above: Performed By: #### L 500.2500 ####[facility] [address] [place], [address] Sodium [Moles/Vol] 137 mmol/L Normal 133-145 [facility] Comment on above: Performed By: #### L 500.2500 ####[facility] [address] [place], [address] Urea nitrogen [Mass/Vol] 110 mg/dL Invalid Interpretation Code 01-13 [facility] Comment on above: Result Comment: Crit ical Result(s) Called at 0610: by:?? KD JONES. Results read back by same. Performed By: #### L 500.2500 ####[facility] [address] [place], [address] Basophil percentageOrdered B y: Herbert Cardona on 02-12-2025 Basophils/100 WBC (Bld) 0.6 % 0-1 [facility] Bedside Glucoseon 02-12-2025 FINGERSTICK GLU 405 mg/dL High 74-106 [facility] Comment on above: Result Comment: VI MONTEJO OF PATIENT CARE PER NURSING PROTOCOL Performed By: #### L 501.080 ####[facility] [address] [place], [address] FINGERSTICK GLU 386 mg/dL High 74-106 [facility] Comment on above: Result Comment: VI GEMENT OF PATIENT CARE PER NURSING PROTOCOL Performed By: #### L 501.080 ####[facility] [address] [place], [address] FINGERSTICK GLU 415 mg/dL High 74-106 [facility] Comment on above: Result Comment: VI GEMENT OF PATIENT CARE PER NURSING PROTOCOL Performed By: #### L 501.080 ####[facility] [address] [place], [address] FINGERSTICK GLU 394 mg/dL High 74-106 [facility] Comment on above: Result Comment: VI GEMENT OF PATIENT CARE PER NURSING PROTOCOL Performed By: #### L 501.080 ####[facility] [address] [place], [address] Blood Gases by [facility] 05-19-2 025 Blood Gas Type ART Normal [facility] Comment on above: Performed By: #### L 9000.0800 ####[facility] [address] [place], [address] CO2 [Moles/Vol] 33 mmol/L Normal [facility] Comment on above: Performed By: #### L 9000.0800 ####[facility] [address] [place], [address] HCO3 (Bld) [Moles/Vol] 32.3 mmol/L High 22-26 [facility] Comment on above: Performed By: #### L 9000.0800 ####[facility] [address] [place], [address] pH (Bld) 7.56 [pH] High 7.35-7.45 [facility] Comment on above: Performed By: #### L 9000.0800 ####[facility] [address] [place], [address] SITE R Radial Normal [facility] Comment on above: Performed By: #### L 9000.0800 ####[facility] [address] [place], [address] Blood base excess determinat ionOrdered By: Herbert Cardona on 02-12-2025 Base excess Calc (BldV) [Moles/Vol] 10 mmol/L High -2-2 [facility] Blood bicarbonate measuremen tOrdered By: Herbert Cardona on 02-12-2025 HCO3 (Bld) [Moles/Vol] 32.3 mmol/L High 22-26 [facility] Carbon dioxide, total [Moles /volume] in Central venous bloodOrdered By: Zachery Gomez on 02-12-2025 CO2 [Moles/Vol] 30.1 mmol/L 21.0-32.0 [facility] Chloride assayOrdered By: Malcolm Gomez on 02-12-2025 Chloride [Moles/Vol] 94 mmol/L Low 98-108 [facility] Eosinophil percentageOrdered By: Herbert Cardona on 02-12-2025 Eosinophils/100 WBC (Bld) 1.7 % 0-5 [facility] Erythrocyte distribution wid th ratioOrdered By: Herbert Cardona on 02-12-2025 Erythrocyte distribution width (RBC) [Ratio] 17.4 % High 11.6-14.6 [facility] Erythrocyte distribution wid th standard deviationOrdered By: Herbert Cardona on 02-12-2025 Erythrocyte distribution width (RBC) [Ratio] 45.2 fl High 35.1-43.9 [facility] Glomerular filtration rate ( GFR) estimation/1.73 sq m using serum, plasma, or whole bOrdered By: Zachery Gomez on 02-12-2025 GFR/1.73 sq M.predicted among non-blacks MDRD (S/P/Bld) [Vol rate/Area] 21 mL/min/{1.73_m2} Low >60 [facility] Comment on above: mL/min/1.73m2 CKD-EP I Creatinine Equation (2020) Glucose measurement at bedsi deOrdered By: Herbert Cardona on 02-12-2025 Glucose [Mass/Vol] 386 mg/dL High 74-106 [facility] Comment on above: MANAGEMENT OF PATIEN T CARE PER NURSING PROTOCOL Hematocrit Auto (Bld) [Volum e fraction]Ordered By: Herbert Cardona on 02-12-2025 Hematocrit (Bld) [Volume fraction] 27.3 % Low 37-47 [facility] Hemoglobin measurementOrdere d By: Herbert Cardona on 02-12-2025 Hemoglobin (Bld) [Mass/Vol] 8.1 g/dL Low 12.0-15.0 [facility] Immature granulocytes/100 WB C Auto (Bld)Ordered By: Herbert Cardona on 02-12-2025 Immature granulocytes/100 WBC (Bld) 1.200 % High 0.0-0.9 [facility] Comment on above: IG% - Immature Granu locytes (promyelocytes, myelocytes and metamyelocytes) > 1% indicates that a LEFT SHIFT is Present. MCV (mean corpuscular volume ) determinationOrdered By: Herbert Cardona on 02-12-2025 MCV (RBC) [Entitic vol] 72.6 fL Low 81-99 [facility] Mean corpuscular hemoglobin (MCH) determinationOrdered By: Herbert Cardona on 02-12-2025 MCH (RBC) [Entitic mass] 21.5 pg Low 27.0-32.0 [facility] Mean corpuscular hemoglobin concentration (MCHC) determinationOrdered By: Herbert Cardona on 02-12-2025 MCHC (RBC) [Mass/Vol] 29.7 g/dL Low 32-36 [facility] Mean platelet volume determi nationOrdered By: Herbert Cardona on 02-12-2025 Platelet mean volume (Bld) [Entitic vol] 9.8 fL 6.2-12.0 [facility] Measurement, pHOrdered By: Laurel Cardona on 02-12-2025 pH (Unsp spec) 7.56 [pH] High 7.35-7.45 [facility] Monocyte percentageOrdered B y: Herbert Cardona on 02-12-2025 Monocytes/100 WBC (Bld) 10.5 % High 0-10 [facility] Neutrophil percentageOrdered By: Herbert Cardona on 02-12-2025 Neutrophils/100 WBC (Bld) 77.9 % High 47-70 [facility] No Panel InformationOrdered By: Herbert Cardona on 02-12-2025 Bedside Blood Gas PEEP 5 [facility] Blood Gas Respiration Rate 14 [facility] Blood Gas Sample Site R Radial [facility] Blood Gas Specimen Type ART [facility] Blood Gas Tidal Volume 450.0 mL [facility] Blood Gas Vent Mode AC [facility] Oxygen Delivery Device Adult Vent [facility] Nucleated red blood cell per centageOrdered By: Herbert Cardona on 02-12-2025 Nucleated RBC/100 WBC (Bld) [Ratio] 0 % 0-5 [facility] Platelet countOrdered By: Paris Cardona on 02-12-2025 Platelets (Bld) [#/Vol] 246 10*3/uL 150-450 [facility] Potassium measurement (mass/ volume)Ordered By: Zachery Gomez on 02-12-2025 Potassium (Unsp spec) [Mass/Vol] 3.4 mmol/L 3.3-5.1 [facility] RBC Auto (Bld) [#/Vol]Ordere d By: Herbert Cardona on 02-12-2025 RBC (Bld) [#/Vol] 3.76 10*6/uL Low 4.2-5.4 [facility] Serum creatinine measurement (mass/volume)Ordered By: Zachery Gomez on 02-12-2025 Creatinine [Mass/Vol] 2.36 mg/dL High 0.70-1.20 [facility] Serum glucose measurement (m ass/volume)Ordered By: Zachery Gomez on 02-12-2025 Glucose [Mass/Vol] 457 mg/dL High 70-99 [facility] Comment on above: Critical Result(s) C alled at 0610: by: KD COLE. Results read back by same. Serum or plasma calcium kayleigh urement (mass/volume)Ordered By: Zachery Gomez on 02-12-2025 Calcium [Mass/Vol] 8.3 mg/dL 7.6-11.0 [facility] Serum or plasma urea nitroge n measurement (mass/volume)Ordered By: Zachery Gomez on 02-12-2025 Urea nitrogen [Mass/Vol] 110 mg/dL High 4-19 [facility] Comment on above: Critical Result(s) C alled at 0610: by: KD [facility] Results read back by same. Sodium levelOrdered By: Angelita Gomez on 02-12-2025 Sodium [Moles/Vol] 137 mmol/L 133-145 [facility] Total carbon dioxide measure mentOrdered By: Herbert Cardona on 02-12-2025 CO2 [Moles/Vol] 33 mmol/L [facility] White blood cell (WBC) count Ordered By: Herbert Cardona on 02-12-2025 WBC (Bld) [#/Vol] 10.9 10*3/uL 4.4-11.0 [facility] Gram stainOrdered By: Jose Pool on 02-08-2025 Microscopic observation Gram stain Nom (Unsp spec) [facility] Immature platelet percentage Ordered By: Zachery Gomez on 02-08-2025 Platelets reticulated/100 platelets Auto (Bld) 1.2 % 1.0-7.9 [facility] Comment on above: Low PLT + Low IPF dobbs ggest a bone marrow production disorderLow PLT + high IPF suggests peripheral destruction(e.g.ITP, TTP, HIT, DIC, autoimmune) or bone marrow recoveryTrending of serial IPF measurements is recommended when evaluating for bone marrow responesValue above normal range indicates an increase in RBC cellular response from bone marrow. Iron measurement (mass/mass) Ordered By: Zachery Gomez on 02-08-2025 Iron (Unsp spec) [Mass/Mass] 16 ug/dL Low 50-170 [facility] Lactate dehydrogenase (LDH) measurementOrdered By: Zachery Gomez on 02-08-2025 LDH [Catalytic activity/Vol] 203 U/L 84-246 [facility] Microbial respiratory cultur eOrdered By: Jose Pool on 02-08-2025 Microorganism identified Cx Nom (Unsp spec) or Staphylococcus aureus isolated. [facility] No Panel InformationOrdered By: Zachery Gomez on 02-08-2025 Bld Gas Crit Called To/Read Back By Yes [facility] Blood Gas Notified Time 10:38:53 [facility] Blood Gas Notified Agustin POOL [facility] Unsaturated Iron Binding Capacity 283 ug/dL 228-428 [facility] Reticulocyte hemoglobin equi valent (RET-He) measurementOrdered By: Zachery Gomez on 02-08-2025 Hemoglobin (Reticulocytes) [Entitic mass] 16.0 pg Low 30-35 [facility] Reticulocytes Auto (Bld) [#/ Vol]Ordered By: Zachery Gomez on 02-08-2025 Reticulocytes/100 RBC (Bld) 1.81 % High 0.5-1.5 [facility] Serum or plasma ferritin thomas surement (mass/volume)Ordered By: Zachery Gomez on 02-08-2025 Ferritin [Mass/Vol] 63 ng/mL 22-378 [facility] Serum or plasma iron saturat ion measurement (mass fraction)Ordered By: Zachery Gomez on 02-08-2025 Iron saturation [Mass fraction] 5.0 % Low 13-59 [facility] Stool gastrointestinal hemog lobin detection by immunologic methodOrdered By: Zachery Gomez on 02-08-2025 Lower GI hemoglobin IA Ql (Stl) [facility] Calculated very low density lipoprotein (VLDL) cholesterol measurementOrdered By: Zachery Gomez on 02-06-2025 Calculated very low density lipoprotein (VLDL) cholesterol measurement 13 mg/dL 5-40 [facility] LDL calc ser/plasOrdered By: Zachery Gomez on 02-06-2025 Cholesterol in LDL [Mass/Vol] 69 mg/dL [facility] Comment on above: Guoltbbhir=155-645 m g/dL & Higher Sdxh=290 mg/dL or greater Screening total cholesterol/ high density lipoprotein (HDL) cholesterol ratioOrdered By: Zachery Gomez on 02-06-2025 Cholesterol.total/Antonia sterol in HDL [Mass ratio] 3.20 {ratio} [facility] Serum or plasma cholesterol in HDL measurement (mass/volume)Ordered By: Zachery Gomez on 02-06-2025 Cholesterol in HDL [Mass/Vol] 37 mg/dL Low >40 [facility] Comment on above: National Cholesterol Education Program (NCEP) guidelines:<40 mg/dL: Low HDL-cholesterol (major risk factor for CHD)>= 60 mg/dL: High HDL-cholesterol (negative risk factor for CHD)HDL-cholesterol is affected by a number of factors, e.g. smoking, exercise, hormones, sex and age. Serum or plasma cholesterol measurement (mass/volume)Ordered By: Zachery Gomez on 02-06-2025 Cholesterol [Mass/Vol] 119 mg/dL <201 [facility] Comment on above: Cholesterol level, D esirable <200 mg/dLBorderline high cholesterol 200-239 mg/dLHigh cholesterol >=240 mg/dLRecommendations of the NCEP Adult Treatment Panel for the following risk-cutoff thresholds for the [place] population. TSH DL <= 0.005 mIU/L QnOrde red By: Zachery Gomez on 02-06-2025 TSH Qn 3.320 uIU/mL 0.300-4.200 [facility] Triglycerides measurementOrd ered By: Zachery Gomez on 02-06-2025 Triglyceride [Mass/Vol] 65 mg/dL <199 [facility] Comment on above: The drugs N-Acetylcy steine and Metamizole may falsely depress this assay. Normal range: <150 mg/dLBorderline High: 150-199 mg/dLHigh: 200-499 mg/dLVery High: >500 mg/dL Absolute lymphocyte countOrd ered By: ED PROVIDER on 02-05-2025 Lymphocytes Auto (Unsp spec) [#/Vol] 0.51 10*3/uL Low 0.83-4.51 [facility] Absolute neutrophil countOrd ered By: ED PROVIDER on 02-05-2025 Neutrophils (Bld) [#/Vol] 18.4 10*3/uL High 2.0-7.7 [facility] Activated partial thrombopla stin time (aPTT) in platelet poor plasma by coagulation aOrdered By: Eduardo Corona on 02-05-2025 aPTT Coag (PPP) [Time] 31.7 s 24.1-36.2 [facility] Anion gap in Serum or Plasma Ordered By: Eduardo Corona on 02-05-2025 Anion gap [Moles/Vol] 19 mmol/L High 5-15 [facility] Assessment of wrist artery p atency prior to arterial punctureOrdered By: Zachery Gomez on 02-05-2025 Arterial patency Wrist artery --pre arterial puncture Positive [facility] Automated lymphocyte count a s percentage of total leukocytesOrdered By: ED PROVIDER on 02-05-2025 Lymphocytes/100 WBC Auto (Unsp spec) 2.5 % Low 19-41 [facility] BUN/creatinine ratioOrdered By: Eduardo Corona on 02-05-2025 Urea nitrogen/Creatinine [Mass ratio] 24.9 mg/mg High 10-20 [facility] Basophil percentageOrdered B y: ED PROVIDER on 02-05-2025 Basophils/100 WBC (Bld) 0.3 % 0-1 [facility] Bilirubin Test strip Ql (U)O rdered By: Eduardo Corona on 02-05-2025 Bilirubin Ql (U) Negative Negative [facility] Blood base excess determinat ionOrdered By: Zachery Gomez on 02-05-2025 Base excess Calc (BldV) [Moles/Vol] -8 mmol/L Low -2-2 [facility] Blood bicarbonate measuremen tOrdered By: Zachery Gomez on 02-05-2025 HCO3 (Bld) [Moles/Vol] 20.3 mmol/L Low 22-26 [facility] Blood cultureOrdered By: Isabel Corona on 02-05-2025 Bacteria identified Cx Nom (Bld) No growth in 5 days. [facility] Bacteria identified Cx Nom (Bld) No growth in 5 days. [facility] Carbon dioxide, total [Moles /volume] in Central venous bloodOrdered By: Eduardo Corona on 02-05-2025 CO2 [Moles/Vol] 15.7 mmol/L Low 21.0-32.0 [facility] Chloride assayOrdered By: Josh Corona on 02-05-2025 Chloride [Moles/Vol] 100 mmol/L 98-108 [facility] Eosinophil percentageOrdered By: ED PROVIDER on 02-05-2025 Eosinophils/100 WBC (Bld) 0.0 % 0-5 [facility] Erythrocyte distribution wid th ratioOrdered By: ED PROVIDER on 02-05-2025 Erythrocyte distribution width (RBC) [Ratio] 17.0 % High 11.6-14.6 [facility] Erythrocyte distribution wid th standard deviationOrdered By: ED PROVIDER on 02-05-2025 Erythrocyte distribution width (RBC) [Ratio] 45.6 fl High 35.1-43.9 [facility] Glomerular filtration rate ( GFR) estimation/1.73 sq m using serum, plasma, or whole bOrdered By: Eduardo Corona on 02-05-2025 GFR/1.73 sq M.predicted among non-blacks MDRD (S/P/Bld) [Vol rate/Area] 21 mL/min/{1.73_m2} Low >60 [facility] Comment on above: mL/min/1.73m2 CKD-EP I Creatinine Equation (2020) Hematocrit Auto (Bld) [Volum e fraction]Ordered By: ED PROVIDER on 02-05-2025 Hematocrit (Bld) [Volume fraction] 27.9 % Low 37-47 [facility] Hemoglobin measurementOrdere d By: ED PROVIDER on 02-05-2025 Hemoglobin (Bld) [Mass/Vol] 8.0 g/dL Low 12.0-15.0 [facility] Immature granulocytes/100 WB C Auto (Bld)Ordered By: ED PROVIDER on 02-05-2025 Immature granulocytes/100 WBC (Bld) 0.600 % 0.0-0.9 [facility] Comment on above: IG% - Immature Granu locytes (promyelocytes, myelocytes and metamyelocytes) > 1% indicates that a LEFT SHIFT is Present. International normalized rat io (INR) calculationOrdered By: Eduardo Corona on 02-05-2025 INR Coag (Bld) [Relative time] 1.4 {INR} [facility] Ketones Test strip Ql (U)Ord ered By: Eduardo Corona on 02-05-2025 Ketones Ql (U) Negative Negative [facility] Lactic acid measurementOrder ed By: Eduardo Corona on 02-05-2025 Lactate [Moles/Vol] 1.8 mmol/L 0.0-2.0 [facility] Lactate [Moles/Vol] 2.5 mmol/L High 0.0-2.0 [facility] Comment on above: Critical Result(s) C alled at: 02/05/2025-12:10 by: Yamil Lepe to Missy Luna Results read back by same. MCV (mean corpuscular volume ) determinationOrdered By: ED PROVIDER on 02-05-2025 MCV (RBC) [Entitic vol] 75.2 fL Low 81-99 [facility] Magnesium measurement (mass/ volume)Ordered By: Zachery Gomez on 02-05-2025 Magnesium (Unsp spec) [Mass/Vol] 2.6 mg/dL High 1.5-2.2 [facility] Mean corpuscular hemoglobin (MCH) determinationOrdered By: ED PROVIDER on 02-05-2025 MCH (RBC) [Entitic mass] 21.6 pg Low 27.0-32.0 [facility] Mean corpuscular hemoglobin concentration (MCHC) determinationOrdered By: ED PROVIDER on 02-05-2025 MCHC (RBC) [Mass/Vol] 28.7 g/dL Low 32-36 [facility] Mean platelet volume determi nationOrdered By: ED PROVIDER on 02-05-2025 Platelet mean volume (Bld) [Entitic vol] 10.6 fL 6.2-12.0 [facility] Measurement, pHOrdered By: Martínez Gomez on 02-05-2025 pH (Unsp spec) 7.21 [pH] Low 7.35-7.45 [facility] Microscopic analysis of urin e for red blood cells (RBC)Ordered By: Eduardo Corona on 02-05-2025 Microscopic analysis of urine for red blood cells (RBC) 0 SEEN /hpf 0-5 [facility] Monocyte percentageOrdered B y: ED PROVIDER on 02-05-2025 Monocytes/100 WBC (Bld) 6.9 % 0-10 [facility] Mucus LM Ql (Urine sed)Order ed By: Eduardo Corona on 02-05-2025 Mucus Ql (Urine sed) 0 SEEN /hpf [facility] Nasal methicillin resistant Staphylococcus aureus (MRSA) DNA detection by PCROrdered By: Zachery Gomez on 02-05-2025 MRSA DNA PATEL+probe Ql (Nose) [facility] Natriuretic peptide.B prohor luke N-Terminal [Mass/volume] in Serum or PlasmaOrdered By: Eduardo Corona on 02-05-2025 Natriuretic peptide.B prohormone N-Terminal [Mass/Vol] 26234 pg/mL High <1800 [facility] Comment on above: Heart Failure Unlike ly: < 300 pg/mLHeart Failure Likely< 50 Years: > 450 pg/mL50-75 Years: > 900 pg/mL>75 Years: > 1800 pg/mL Neutrophil percentageOrdered By: ED PROVIDER on 02-05-2025 Neutrophils/100 WBC (Bld) 89.7 % High 47-70 [facility] Nitrite Test strip Ql (U)Ord ered By: Eduardo Corona on 02-05-2025 Nitrite Ql (U) Negative Negative [facility] No Panel InformationOrdered By: Zachery Gomez on 02-05-2025 Blood Gas Sample Site R Radial [facility] Blood Gas Specimen Type ART [facility] Blood Gas Vent Mode Not entered [facility] Oxygen Delivery Device BiPAP [facility] Nucleated red blood cell per centageOrdered By: ED PROVIDER on 02-05-2025 Nucleated RBC/100 WBC (Bld) [Ratio] 0 % 0-5 [facility] Platelet countOrdered By: ED PROVIDER on 02-05-2025 Platelets (Bld) [#/Vol] 226 10*3/uL 150-450 [facility] Potassium measurement (mass/ volume)Ordered By: Eduardo Corona on 02-05-2025 Potassium (Unsp spec) [Mass/Vol] 5.5 mmol/L High 3.3-5.1 [facility] Comment on above: Hemolysis present, R esults could be affected. Protein Test strip Ql (U)Ord ered By: Eduardo Corona on 02-05-2025 Protein Ql (U) 30 mg/dl High Negative [facility] Prothrombin timeOrdered By: Eduardo Corona on 02-05-2025 PT Coag (PPP) [Time] 17.1 s High 11.7-14.9 [facility] RBC Auto (Bld) [#/Vol]Ordere d By: ED PROVIDER on 02-05-2025 RBC (Bld) [#/Vol] 3.71 10*6/uL Low 4.2-5.4 [facility] Serum creatinine measurement (mass/volume)Ordered By: Eduardo Corona on 02-05-2025 Creatinine [Mass/Vol] 2.32 mg/dL High 0.70-1.20 [facility] Serum glucose measurement (m ass/volume)Ordered By: Eduardo Corona on 02-05-2025 Glucose [Mass/Vol] 259 mg/dL High 70-99 [facility] Serum or plasma calcium kayleigh urement (mass/volume)Ordered By: Eduardo Corona on 02-05-2025 Calcium [Mass/Vol] 9.1 mg/dL 7.6-11.0 [facility] Serum or plasma urea nitroge n measurement (mass/volume)Ordered By: Eduardo Corona on 02-05-2025 Urea nitrogen [Mass/Vol] 58 mg/dL High 4-19 [facility] Sodium levelOrdered By: Eduardo Corona on 02-05-2025 Sodium [Moles/Vol] 135 mmol/L 133-145 [facility] Squamous epithelial cells de tection in urine sediment by light microscopyOrdered By: Eduardo Corona on 02-05-2025 Epithelial cells.squamous LM Ql (Urine sed) 0 SEEN /hpf 5-10 [facility] Total carbon dioxide measure mentOrdered By: Zachery Gomez on 02-05-2025 CO2 [Moles/Vol] 22 mmol/L [facility] Troponin T.cardiac [Mass/vol ume] in Serum or Plasma by High sensitivity methodOrdered By: Zachery Gomez on 02-05-2025 Troponin T.cardiac High sensitivity method [Mass/Vol] 270 ng/L High <14 [facility] Comment on above: Critical Result(s) C alled at: 1749 by: JOSEPH MI Results read back by same. Troponin T.cardiac [Mass/vol ume] in Serum or Plasma by High sensitivity methodOrdered By: Eduardo Corona on 02-05-2025 Troponin T.cardiac High sensitivity method [Mass/Vol] 241 ng/L High <14 [facility] Comment on above: Critical Result(s) C alled at 1358: by: KD KHAN TO [place]. Results read back by same. Troponin T.cardiac High sensitivity method [Mass/Vol] 218 ng/L High <14 [facility] Comment on above: Critical Result(s) C alled at 1154: by: KD KHAN TO [facility]. Results read back by same. Urine clarityOrdered By: Isabel Corona on 02-05-2025 Clarity (U) Clear Clear [facility] Urine color determinationOrd ered By: Eduardo Corona on 02-05-2025 Color (U) Yellow Yellow [facility] Urine cultureOrdered By: Isabel Corona on 02-05-2025 Bacteria identified Cx Nom (U) Presumptive E. coli Abnormal [facility] Urine glucose detectionOrder ed By: Eduardo Corona on 02-05-2025 Glucose Ql (U) 100 mg/dl High Normal [facility] Urine leukocyte esterase det ection by dipstickOrdered By: Eduardo Corona on 02-05-2025 Leukocyte esterase Test strip Ql (U) 500 /ul High Negative [facility] Urine pHOrdered By: Eduardo galeana on 02-05-2025 pH (U) 5.0 [pH] 5.0 - 8.0 [facility] Urine sediment bacteria coun t by microscopy (number/high power field)Ordered By: Eduardo Corona on 02-05-2025 Bacteria LM.HPF (Urine sed) [#/Area] 0 /[HPF] None Seen [facility] Urine specific gravity measu rementOrdered By: Eduardo Corona on 02-05-2025 Specific gravity (U) [Rel density] 1.025 1.002-1.030 [facility] Urine urobilinogen measureme ntOrdered By: Eduardo Corona on 02-05-2025 Urobilinogen Ql (U) Normal mg/dl Normal [facility] White blood cell (WBC) count Ordered By: ED PROVIDER on 02-05-2025 WBC (Bld) [#/Vol] 20.5 10*3/uL High 4.4-11.0 [facility] White blood cell countOrdere d By: Eduardo Corona on 02-05-2025 White blood cell count 10-25 SEEN /hpf 0-5 [facility] Anion gap in Serum or Plasma Ordered By: Janusz Reaves on 01-29-2025 Anion gap [Moles/Vol] 12 mmol/L 5-15 [facility] BUN/creatinine ratioOrdered By: Janusz Reaves on 01-29-2025 Urea nitrogen/Creatinine [Mass ratio] 26.2 mg/mg High 10-20 [facility] Carbon dioxide, total [Moles /volume] in Central venous bloodOrdered By: Janusz Reaves on 01-29-2025 CO2 [Moles/Vol] 22.0 mmol/L 21.0-32.0 [facility] Chloride assayOrdered By: Eve Reaves on 01-29-2025 Chloride [Moles/Vol] 105 mmol/L 98-108 [facility] Glomerular filtration rate ( GFR) estimation/1.73 sq m using serum, plasma, or whole bOrdered By: Janusz Reaves on 01-29-2025 GFR/1.73 sq M.predicted among non-blacks MDRD (S/P/Bld) [Vol rate/Area] 25 mL/min/{1.73_m2} Low >60 [facility] Comment on above: mL/min/1.73m2 CKD-EP I Creatinine Equation (2020) Natriuretic peptide.B prohor luke N-Terminal [Mass/volume] in Serum or PlasmaOrdered By: Janusz Reaves on 01-29-2025 Natriuretic peptide.B prohormone N-Terminal [Mass/Vol] 3923 pg/mL High <1800 [facility] Comment on above: Heart Failure Unlike ly: < 300 pg/mLHeart Failure Likely< 50 Years: > 450 pg/mL50-75 Years: > 900 pg/mL>75 Years: > 1800 pg/mL Potassium measurement (mass/ volume)Ordered By: Janusz Reaves on 01-29-2025 Potassium (Unsp spec) [Mass/Vol] 4.4 mmol/L 3.3-5.1 [facility] Serum creatinine measurement (mass/volume)Ordered By: Janusz Reaves on 01-29-2025 Creatinine [Mass/Vol] 2.00 mg/dL High 0.70-1.20 [facility] Serum glucose measurement (m ass/volume)Ordered By: Janusz Reaves on 01-29-2025 Glucose [Mass/Vol] 139 mg/dL High 70-99 [facility] Serum or plasma calcium kayleigh urement (mass/volume)Ordered By: Janusz Reaves on 01-29-2025 Calcium [Mass/Vol] 9.3 mg/dL 7.6-11.0 [facility] Serum or plasma urea nitroge n measurement (mass/volume)Ordered By: Janusz Reaves on 01-29-2025 Urea nitrogen [Mass/Vol] 52 mg/dL High 4-19 [facility] Sodium levelOrdered By: Jenelle Reaves on 01-29-2025 Sodium [Moles/Vol] 139 mmol/L 133-145 [facility] CBC W Auto Differential pane l (Bld)on 12-18-2024 Basophils (Bld) [#/Vol] 0.07 10*3/uL Normal <0.11 [facility] Comment on above: Order Comment: Speci men Type: BLOOD SPECIMENOrdering Facility: [facility] Address: [address] [place] [address] Performed By: #### 5 7021-8 ####[facility] LABIA [id number] [place] [address] [place] Basophils/100 WBC (Bld) 0.9 % Normal C [facility] Comment on above: Order Comment: Speci men Type: BLOOD SPECIMENOrdering Facility: [facility] Address: [address] [place] [address] Performed By: #### 5 7021-8 ####[facility] LABCLIA [id number] [place] [id number] [place] Differential cell count method Nom (Bld) Auto Normal [facility] Comment on above: Order Comment: Speci men Type: BLOOD SPECIMENOrdering Facility: [facility] Address: [address] [place] [address] Performed By: #### 5 7021-8 ####[facility] LABIA [id number] [place] [id number] [place] Eosinophils (Bld) [#/Vol] 0.17 10*3/uL Normal <0.46 [facility] Comment on above: Order Comment: Speci men Type: BLOOD SPECIMENOrdering Facility: [facility] Address: [address] [place] [address] Performed By: #### 5 7021-8 ####[facility] LABCLIA [id number] [place] [address] [place] Eosinophils/100 WBC (Bld) 2.2 % Normal [facility] Comment on above: Order Comment: Speci men Type: BLOOD SPECIMENOrdering Facility: [facility] Address: [address] [place] [address] Performed By: #### 5 7021-8 ####[facility] LABCLIA [id number] [place] [address] [place] Erythrocyte distribution width (RBC) [Ratio] 18.2 % High 11.5-15.0 [facility] Comment on above: Order Comment: Speci men Type: BLOOD SPECIMENOrdering Facility: [facility] Address: [address] [place] [address] Performed By: #### 5 7021-8 ####[facility] LABCLIA [id number] [place] [address] [place] Hematocrit (Bld) [Volume fraction] 27.1 % Low 36.0-46.0 [facility] Comment on above: Order Comment: Speci men Type: BLOOD SPECIMENOrdering Facility: [facility] Address: [address] [place] [address] Performed By: #### 5 7021-8 ####[facility] LABCLIA [id number] [place] [address] [place] Hemoglobin (Bld) [Mass/Vol] 7.5 g/dL Low 11.5-15.5 [facility] Comment on above: Order Comment: Speci men Type: BLOOD SPECIMENOrdering Facility: [facility] Address: [address] [place] [address] Performed By: #### 5 7021-8 ####[facility] LABCLIA [id number] [place] [address] [place] Immature granulocytes (Bld) [#/Vol] 10*3/uL Normal <0.10 [facility] Comment on above: Order Comment: Speci men Type: BLOOD SPECIMENOrdering Facility: [facility] Address: [address] [place] [address] Performed By: #### 5 7021-8 ####[facility] LABCLIA [id number] [place] [address] [place] Immature granulocytes/100 WBC (Bld) 0.3 % Normal [facility] Comment on above: Order Comment: Speci men Type: BLOOD SPECIMENOrdering Facility: [facility] Address: [address] [place] [address] Performed By: #### 5 7021-8 ####[facility] LABCLIA [id number] [place] [address] [place] Lymphocytes (Bld) [#/Vol] 1.05 10*3/uL Normal 1.00-4.00 [facility] Comment on above: Order Comment: Speci men Type: BLOOD SPECIMENOrdering Facility: [facility] Address: [address] [place] [address] Performed By: #### 5 7021-8 ####[facility] LABCLIA [id number] [place] [address] [place] Lymphocytes/100 WBC (Bld) 13.6 % Normal [facility] Comment on above: Order Comment: Speci men Type: BLOOD SPECIMENOrdering Facility: [facility] Address: [address] [place] [address] Performed By: #### 5 7021-8 ####[facility] LABCLIA [id number] [place] [address] [place] MCH (RBC) [Entitic mass] 23.6 pg Low 26.0-34.0 [facility] Comment on above: Order Comment: Speci men Type: BLOOD SPECIMENOrdering Facility: [facility] Address: [address] [place] [address] Performed By: #### 5 7021-8 ####[facility] LABCLIA [id number] [place] [address] [place] MCHC (RBC) [Mass/Vol] 27.7 g/dL Low 30.5-36.0 [facility] Comment on above: Order Comment: Speci men Type: BLOOD SPECIMENOrdering Facility: [facility] Address: [address] [place] [address] Performed By: #### 5 7021-8 ####[facility] LABCLIA [id number] [place] [address] [place] MCV (RBC) [Entitic vol] 85.2 fL Normal 80.0-100.0 C [facility] Comment on above: Order Comment: Speci men Type: BLOOD SPECIMENOrdering Facility: [facility] Address: [address] [place] [address] Performed By: #### 5 7021-8 ####[facility] LABIA [id number] [place] [address] [place] Monocytes (Bld) [#/Vol] 0.70 10*3/uL Normal <0.87 [facility] Comment on above: Order Comment: Speci men Type: BLOOD SPECIMENOrdering Facility: [facility] Address: [address] [place] [address] Performed By: #### 5 7021-8 ####[facility] LABCLIA [id number] [address] [place] Monocytes/100 WBC (Bld) 9.1 % Normal C [facility] Comment on above: Order Comment: Speci men Type: BLOOD SPECIMENOrdering Facility: [facility] Address: [address] [place] [address] Performed By: #### 5 7021-8 ####[facility] LABCLIA [id number] [place] [id number] [place] Neutrophils (Bld) [#/Vol] 5.69 10*3/uL Normal 1.45-7.50 [facility] Comment on above: Order Comment: Speci men Type: BLOOD SPECIMENOrdering Facility: [facility] Address: [address] [place] [address] Performed By: #### 5 7021-8 ####[facility] LABCLIA [id number] [place] [address] [place] Neutrophils/100 WBC (Bld) 73.9 % Normal [facility] Comment on above: Order Comment: Speci men Type: BLOOD SPECIMENOrdering Facility: [facility] Address: [address] [place] [address] Performed By: #### 5 7021-8 ####[facility] LABCLIA [id number] [place] [address] [place] Nucleated RBC (Bld) [#/Vol] 10*3/uL Normal <0.01 [facility] Comment on above: Order Comment: Speci men Type: BLOOD SPECIMENOrdering Facility: [facility] Address: [address] [place] [address] Performed By: #### 5 7021-8 ####[facility] LABCLIA [id number] [place] [id number] [place] Nucleated RBC/100 WBC (Bld) [Ratio] 0.0 /100 WBC Normal [facility] Comment on above: Order Comment: Speci men Type: BLOOD SPECIMENOrdering Facility: [facility] Address: [address] [place] [address] Performed By: #### 5 7021-8 ####[facility] LABCLIA [id number] [address] [address] [place] Platelet mean volume (Bld) [Entitic vol] 10.8 fL Normal 9.0-12.7 [facility] Comment on above: Order Comment: Speci men Type: BLOOD SPECIMENOrdering Facility: [facility] Address: [address] [place] [address] Performed By: #### 5 7021-8 ####[facility] LABIA [id number] [address], [facility] [place] Platelets (Bld) [#/Vol] 297 10*3/uL Normal 150-400 [facility] Comment on above: Order Comment: Speci men Type: BLOOD SPECIMENOrdering Facility: [facility] Address: [address] [place] [address] Performed By: #### 5 7021-8 ####[facility] [id number] [place] [address] [place] RBC (Bld) [#/Vol] 3.18 10*6/uL Low 3.90-5.20 [facility] Comment on above: Order Comment: Speci men Type: BLOOD SPECIMENOrdering Facility: [facility] Address: [address] [place] [address] Performed By: #### 5 7021-8 ####[facility] LABIA [id number] [place] [id number] [place] WBC (Bld) [#/Vol] 7.70 10*3/uL Normal 3.70-11.00 [facility] Comment on above: Order Comment: Speci men Type: BLOOD SPECIMENOrdering Facility: [facility] Address: [address] [place] [address] Performed By: #### 5 7021-8 ####[facility] LABIA [id number] [place] [id number] [place] Comprehensive metabolic 2000 panelon 12-18-2024 Albumin [Mass/Vol] 4.1 g/dL Normal 3.9-4.9 [facility] Comment on above: Order Comment: Speci men Type: BLOOD SPECIMENOrdering Facility: [facility] Address: [address] [place] [address] Performed By: #### 2 4331-1, ####[facility] LABCLIA [id number] [facility] [place] [id number] [place] ALP [Catalytic activity/Vol] 90 U/L Normal 34-123 [facility] Comment on above: Order Comment: Speci men Type: BLOOD SPECIMENOrdering Facility: [facility] Address: [address] [place] [address] Performed By: #### 2 4331-1, ####[facility] LABCLIA [id number] [place] [address] [place] ALT [Catalytic activity/Vol] 11 U/L Normal 7-38 [facility] Comment on above: Order Comment: Speci men Type: BLOOD SPECIMENOrdering Facility: [facility] Address: [address] [place] [address] Performed By: #### 2 4331-1, ####[facility] LABCLIA [id number] [address] [address] [place] Anion gap [Moles/Vol] 12 mmol/L Normal 8-15 [facility] Comment on above: Order Comment: Speci men Type: BLOOD SPECIMENOrdering Facility: [facility] Address: [address] [place] [address] Performed By: #### 2 4331-1, ####[facility] LABCLIA [id number] [facility] [address] [address] [place] AST [Catalytic activity/Vol] 14 U/L Normal 13-35 [facility] Comment on above: Order Comment: Speci men Type: BLOOD SPECIMENOrdering Facility: [facility] Address: [address] [place], [place] [address] Performed By: #### 2 4331-1, ####[facility] LABCLIA [id number] [address] [address] [place] Bilirubin [Mass/Vol] 0.4 mg/dL Normal 0.2-1.3 [facility] Comment on above: Order Comment: Speci men Type: BLOOD SPECIMENOrdering Facility: [facility] Address: [address] [place], [place] [address] Performed By: #### 2 4331-1, ####[facility] LABIA [id number] [place] [address] [place] Calcium [Mass/Vol] 9.8 mg/dL Normal 8.5-10.2 [facility] Comment on above: Order Comment: Speci men Type: BLOOD SPECIMENOrdering Facility: [facility] Address: [address] [place], [place] [address] Performed By: #### 2 4331-, ####[facility] LABIA [id number] [place] [id number] [place] Chloride [Moles/Vol] 109 mmol/L High 98-107 [facility] Comment on above: Order Comment: Speci men Type: BLOOD SPECIMENOrdering Facility: [facility] [facility] Address: [address] [place], [place] [id number] Performed By: #### 2 4331-, ####[facility] LABIA [id number] [address] [address] [place] CO2 [Moles/Vol] 21 mmol/L Low 22-30 [facility] Comment on above: Order Comment: Speci men Type: BLOOD SPECIMENOrdering Facility: [facility] Address: [address] [place], [place] [address] Performed By: #### 2 4331-1, 63900-7 ####[facility] LABIA [id number] [address] [address] [place] Creatinine [Mass/Vol] 1.95 mg/dL High 0.58-0.96 [facility] Comment on above: Order Comment: Specyoandy davies Type: BLOOD SPECIMENOrdering Facility: [facility] Address: [address] [place] [address] Performed By: #### 2 4331-1, 46379-8 ####[facility] LABIA [id number] [address] [address] [place] Creatinine and Glomerular filtration rate.predicted panel (S/P/Bld) 26 mL/min/1.73m??? Low >=60 [facility] Comment on above: Order Comment: Trevor keke Type: BLOOD SPECIMENOrdering Facility: [facility] Address: [address] [place] [address] Result Comment: Kathrine mated Glomerular Filtration Rate [...] actual GFR. Performed By: #### 2 4331-1, 39932-2 ####[facility] LABIA [id number] [address] [address] [place] Glucose [Mass/Vol] 132 mg/dL High 74-99 [facility] Comment on above: Order Comment: Maxim keke Type: BLOOD SPECIMENOrdering Facility: [facility] Address: [address] [place] [address] Result Comment: The [place] Diabetes Association (ADA) provides guidance for cutoff [...] Standards of Medical Care in Diabetes 2016, [place] Diabetes Association. Diabetes Care. 2016.39(Suppl 1). Performed By: #### 2 4331-1, 52850-7 ####[facility] LABCLIA [id number] [address] [address] [place] Potassium [Moles/Vol] 5.2 mmol/L High 3.7-5.1 [facility] Comment on above: Order Comment: Speci men Type: BLOOD SPECIMENOrdering Facility: [facility] Address: [address] [place] [address] Performed By: #### 2 4331-, 60126-3 ####[facility] LABCLIA [id number] [place] [id number] [place] Protein [Mass/Vol] 7.5 g/dL Normal 6.3-8.0 [facility] Comment on above: Order Comment: Speci men Type: BLOOD SPECIMENOrdering Facility: [facility] Address: [address] [place] [address] Performed By: #### 2 4331-, ####[facility] LABCLIA [id number] [address] [address] [place] Sodium [Moles/Vol] 142 mmol/L Normal 136-144 [facility] Comment on above: Order Comment: Speci men Type: BLOOD SPECIMENOrdering Facility: [facility] Address: [address] [place], [place] [address] Performed By: #### 2 433-, 11887-7 ####[facility] LABCLIA [id number] [facility] [address] [address] [place] Urea nitrogen [Mass/Vol] 47 mg/dL High 7-21 [facility] Comment on above: Order Comment: Maxim davies Type: BLOOD SPECIMENOrdering Facility: [facility] Address: [address] [place] [address] Performed By: #### 2 4331-1, 04694-1 ####[facility] LABCLIA [id number] [address] [address] [facility] HbA1c (Bld)on 12-18-2024 Average glucose Estimated from glycated hemoglobin (Bld) [Mass/Vol] 140 mg/dL Normal [facility] Comment on above: Order Comment: Maxim davies Type: BLOOD SPECIMENOrdering Facility: [facility] Address: [address] [place] [address] Result Comment: eAG: (Estimated average glucose) is a calculated value from HgbA1c and is life assurance representative of the average blood glucose level in the last 2-3 month period. Performed By: #### 5 5454-3 ####[facility] LABCLIA [id number] [address] [place] HbA1c (Bld) [Mass fraction] 6.5 % High 4.3-5.6 [facility] Comment on above: Order Comment: Maxim davies Type: BLOOD SPECIMENOrdering Facility: [facility] Address: [address] [place] [address] Result Comment: [place] Diabetes Association guidelines indicate that patients with HgbA1c in the range 5.7-6.4% are at increased risk for development of diabetes, and intervention by lifestyle modification may be beneficial. HgbA1c greater or equal to 6.5% is considered diagnostic of diabetes. Performed By: #### 5 5454-3 ####[facility] LABCLIA [id number] [place] [id number] [place] Lipid 1996 panelon Cholesterol [Mass/Vol] 113 mg/dL Normal <200 Cl [facility] Comment on above: Order Comment: Maxim keke Type: BLOOD SPECIMENOrdering Facility: [facility] Address: [address] [place] [address] Result Comment: <200 mg/dL, Desirable 200-239 mg/dL, Borderline high >239 mg/dL, High Performed By: #### 2 4331-1, 96768-4 ####[facility] LABCLIA [id number] [facility] [id number] [place] [address] [place] Cholesterol in HDL [Mass/Vol] 38 mg/dL Low >39 [facility] Comment on above: Order Comment: Speci men Type: BLOOD SPECIMENOrdering Facility: [facility] Address: [address] [place] [address] Result Comment: 40-5 9 mg/dL, Acceptable >59 mg/dL, High: Negative risk factor for coronary heart disease <40 mg/dL, Low: Positive risk factor for coronary heart disease Performed By: #### 2 4331-1, ####[facility] LABCLIA [id number] [address], [address] [place] Cholesterol in LDL [Mass/Vol] 58 mg/dL Normal <100 [facility] Comment on above: Order Comment: Maxim keke Type: BLOOD SPECIMENOrdering Facility: [facility] Address: [address] [place] [address] Result Comment: <100 mg/dL, Optimal 100-129 mg/dL, Near optimal/above optimal 130-159 mg/dL, Borderline high 160-189 mg/dL, High >189 mg/dL, Very high Secondary prevention optimal LDL Cholesterol levels are recommended to be < 70 mg/dL Performed By: #### 2 4331-1, 88598-1 ####[facility] LABCLIA [id number] [facility] [address] [place] [address] [place] Cholesterol in LDL/Cholesterol in HDL [Mass ratio] 1.53 {ratio} Normal <2.54 [facility] Comment on above: Order Comment: Maxim davies Type: BLOOD SPECIMENOrdering Facility: [facility] Address: [address] [place] [address] Result Comment: Refe rence: 1. National Cholesterol Education Program ATP III Guideline At-A-Glance Quick Desk Reference: National Heart, Lung, and Blood [place]. National Institutes of Health. 2001: NIH Publication No. 01-3305. 2. An International Atherosclerosis Society position paper: global recommendations for the management of dyslipidemia: executive summary, Atherosclerosis. 2014: 232(2):410-413. Performed By: #### 2 4331-1, ####[facility] LABCLIA [id number] [facility] [address] [address] [place] Cholesterol in VLDL [Mass/Vol] 17 mg/dL Normal <30 [facility] Comment on above: Order Comment: Speci men Type: BLOOD SPECIMENOrdering Facility: [facility] Address: [address] [place] [address] Performed By: #### 2 4330-, ####[facility] LABCLIA [id number] [place] [id number] [place] Cholesterol non HDL [Mass/Vol] 75 mg/dL Normal <130 [facility] Comment on above: Order Comment: Maxim men Type: BLOOD SPECIMENOrdering Facility: [facility] Address: [address] [place] [address] Result Comment: <130 mg/dL, Optimal 130-159 mg/dL, Near optimal/above optimal 160-189 mg/dL, Borderline high 190-219 mg/dL, High >219 mg/dL, Very high Secondary prevention optimal non HDL Cholesterol levels are recommended to be <100 mg/dL Performed By: #### 2 4330-, ####[facility] LABCLIA [id number] [address] [address] [place] Cholesterol.total/Antonia sterol in HDL [Mass ratio] 2.97 {ratio} Normal <5.10 [facility] Comment on above: Order Comment: Trevori men Type: BLOOD SPECIMENOrdering Facility: [facility] Address: [address] [place] [address] Performed By: #### 2 433-, 44060-3 ####[facility] LABCLIA [id number] [address] [place] FASTING TIME 12 hrs Normal [facility] Comment on above: Order Comment: Speci men Type: BLOOD SPECIMENOrdering Facility: [facility] Address: [address] [place] [address] Performed By: #### 2 4331-1, 64944-4 ####[facility] LABCLIA [id number] [address] [place] Triglyceride [Mass/Vol] 86 mg/dL Normal <150 C [facility] Comment on above: Order Comment: Speci men Type: BLOOD SPECIMENOrdering Facility: [facility] Address: [address] [place] [address] Result Comment: <150 mg/dL, Normal 150-199 mg/dL, Borderline high 200-499 mg/dL, High >499 mg/dL, Very high Performed By: #### 2 4331-1, 45221-0 ####[facility] LABCLIA [id number] [address] [place] CNOVon 11-27-2024 [facility] ROSA MY[facility] ([id number]) 1950 F Date Time Provider Department 11/27/24 2:00 PM RUFINA SOARES [facility] During your visit today, we recorded the following information about you: Pulse Respiration Blood pressure Weight 65/minute 16/minute 126/80 109.8 kg Rufina Soares APRN.METALLURGIST HELPER 11/27/2024 3:43 PM Signed This is a 74 year old female who presents today with: Patient presents with: Follow Up: 2 month follow up HISTORY OF PRESENT ILLNESS: Rosa Myers is a 74 year old female. Patient presents with: Follow Up: 2 month follow up 2 month follow up. Due for labs DM: Reports overall feeling well. Medication side effects: No. Home sugar checks: 163 today fasting, and lunch 160. Hypoglycemic spells: No. Watching diet: No. Unexpected weight loss: No. Polyuria, polydipsia: No. Vision Changes: No. Foot lesions or numbness or pain: No. Was just released from wound clinic At last OV increased Levemir 30 units at QHS and Humalog 15 units TID with meals. Still taking Farxiga 10 mg daily. CKD, stage 4, following with Nephrology HTN: Taking Losartan 50 mg and Amlodipine 5 mg daily. Not currently checking BP at home. Lipids: Taking Liptor 40 mg at bed. Son present at today's appointment. Prefers to hold off on making medication adjustments. PAST MEDICAL HISTORY: PAST MEDICAL HISTORY Diagnosis Date Allergic rhinitis due to other allergen Essential hypertension, benign Type II or unspecified type diabetes mellitus without mention of complication, uncontrolled PAST SURGICAL HISTORY Procedure Laterality Date CATARACT EXTRACTION HX Right 10/26/2017 EGD W/O [facility] SPEC VARICIES INJ N/A 02/24/2022 LIG/TRNSXJ FLP TUBE ABDL/VAG APPR UNI/BI 1987 Tubal ligation LIGJ DIVJ AND/EXCJ VARICOSE VEIN CLUSTER 1 LEG 1995 Varicose Vein Surgery TONSILLECTOMY PRIMARY/SECONDARY Tonsillectomy ALLERGIES Diana Inhibitors and Neomycin MEDICATIONS Current Outpatient Medications Medication Sig losartan (COZAAR) 50 mg tablet Take 1 tablet by mouth once daily. insulin detemir U-100 (LEVEMIR) 100 unit/mL (3 mL) injection pen Inject 30 Units subcutaneously every morning. insulin lispro (HUMALOG KWIKPEN INSULIN) 100 unit/mL INJECT 15 UNITS SUBCUTANEOUSLY THREE TIMES DAILY WITH MEALS DIRECTED vitamin B complex (COMPLEX B-100 ORAL) Take 100 mg by mouth once daily. dapagliflozin propanediol (FARXIGA) 10 mg tablet Take 1 tablet by mouth daily with breakfast. amLODIPine (NORVASC) 5 mg tablet Take 1 tablet by mouth once daily. blood sugar diagnostic (BLOOD GLUCOSE TEST) test strip Test blood sugar(s) 3 times daily. Dx: 250.02. Insulin: Yes atorvastatin (LIPITOR) 40 mg tablet Take 1 tablet by mouth daily at bedtime. For cholesterol. metOLazone (ZAROXOLYN) 5 mg tablet Take 1 tablet by mouth once daily. clotrimazole-betameth asone (LOTRISONE) cream Apply to affected area two times a day. furosemide (LASIX) 40 mg tablet Take 2 tablets by mouth once daily. FLUoxetine (PROZAC) 10 mg capsule Take 1 capsule by mouth once daily. carvedilol (COREG) 12.5 mg tablet Take 1 tablet by mouth two times a day. blood sugar diagnostic (BLOOD GLUCOSE TEST) test strip Alvina test strips. Test blood sugars once daily as directed. Dx: E11.9. Insulin: Yes Insulin Syringe-Needle U-100 1 mL 29 gauge x 1/2" 1 Each once daily. USE ONE SYRINGE FOR EACH INSULIN DOSE/ 1 PER DAY insulin needles, DISPOSABLE, (PEN NEEDLE) 31 gauge x 5/16" Use 4 times daily to inject insulin Blood-Glucose Meter misc 1 Each once daily. Blood Sugar Diagnostic, Drum (ACCU-CHEK COMPACT TEST) strp Test blood sugar(s) 3 times daily. Dx:E11.9 . Insulin: Yes loratadine (CLARITIN) 10 mg tablet Take 1 tablet by mouth once daily. Cholecalciferol, Vitamin D3, 1,000 unit cap Take 1 capsule by mouth once daily. Insulin Center [place], Disposable, (RELION PEN NEEDLES) 32 x 5/32 " ndle Use as directed with insulin pen. 250.00. 4 injections/day. On insulin. Blood-Glucose Meter, Drum-type (ACCU-CHEK COMPACT PLUS CARE) kit Use as directed cyanocobalamin (VITAMIN B-12) 1,000 mcg tab Take 1 tablet by mouth once daily. Aspirin 81 mg Tab Take 81 mg by mouth. No current facility-administered medications for this visit. FAMILY HISTORY Problem Relation Age of Onset Diabetes Father Coronary Artery Disease Father Coronary Artery Disease Mother CABG age 80 Cataract Sister Blindness Sister Blindness Other Social History Tobacco Use Smoking status: Former Smokeless tobacco: Never Tobacco comments: Quit 1980s Vaping Use Vaping status: Never Used Substance Use Topics Alcohol use: No Drug use: No REVIEW OF SYSTEMS GENERAL: No weight loss, malaise or fevers/chills HEENT: Negative for frequent or significant headaches, No changes in hearing or vision. NECK: Negative for lumps, goiter, pain and significant neck swelling RESPIR (more content not included)... Normal [facility] 11-14-2024 CNPN Telephone (FAMPWS) ROSA MYERS ([id number]) 1950 F Date Time Provider Department 11/14/24 [facility] During your visit today, we recorded the following information about you: Judie Paiz RN 11/14/2024 10:11 AM Signed Joseph MICHELE with [facility] calls to let provider know that patient was seen today for eval of SN services. SN will continue to see patient once weekly x 5 weeks for wound care of left outer foot. Patient is going to wound center to see Dr. Carranza and they have those treatment orders just needing to extend nursing services to continue monitoring. No call back needed unless provider has questions. Judie Paiz, Maciel Badillo APRN.METALLURGIST HELPER 11/14/2024 10:26 AM Signed Noted. Okay to continue with the plan. Maciel Busby APRN.METALLURGIST HELPER Allergies As of Date: 11/14/2024 Noted Allergy Reaction DIANA INHIBITORS 07/17/2005 NEOMYCIN 07/17/2005 Date Reviewed: 09/26/2024 Reviewed by: Yaz Christy MA - Fully Assessed Reason for Visit: POC update [Other] Prescriptions as of 11/14/2024 - losartan (COZAAR) 50 mg tablet Take 1 tablet by mouth once daily. - insulin detemir U-100 (LEVEMIR) 100 unit/mL (3 mL) injection pen Inject 30 Units subcutaneously every morning. - insulin lispro (HUMALOG KWIKPEN INSULIN) 100 unit/mL INJECT 15 UNITS SUBCUTANEOUSLY THREE TIMES DAILY WITH MEALS DIRECTED - vitamin B complex (COMPLEX B-100 ORAL) Take 100 mg by mouth once daily. - dapagliflozin propanediol (FARXIGA) 10 mg tablet Take 1 tablet by mouth daily with breakfast. - amLODIPine (NORVASC) 5 mg tablet Take 1 tablet by mouth once daily. - blood sugar diagnostic (BLOOD GLUCOSE TEST) test strip Test blood sugar(s) 3 times daily. Dx: 250.02. Insulin: Yes - atorvastatin (LIPITOR) 40 mg tablet Take 1 tablet by mouth daily at bedtime. For cholesterol. - metOLazone (ZAROXOLYN) 5 mg tablet Take 1 tablet by mouth once daily. - clotrimazole-betameth asone (LOTRISONE) cream Apply to affected area two times a day. - furosemide (LASIX) 40 mg tablet Take 2 tablets by mouth once daily. - FLUoxetine (PROZAC) 10 mg capsule Take 1 capsule by mouth once daily. - carvedilol (COREG) 12.5 mg tablet Take 1 tablet by mouth two times a day. - blood sugar diagnostic (BLOOD GLUCOSE TEST) test strip Alvina test strips. Test blood sugars once daily as directed. Dx: E11.9. Insulin: Yes - Insulin Syringe-Needle U-100 1 mL 29 gauge x 1/2" 1 Each once daily. USE ONE SYRINGE FOR EACH INSULIN DOSE/ 1 PER DAY - insulin needles, DISPOSABLE, (PEN NEEDLE) 31 gauge x 5/16" Use 4 times daily to inject insulin - Blood-Glucose Meter misc 1 Each once daily. - Blood Sugar Diagnostic, Drum (ACCU-CHEK COMPACT TEST) strp Test blood sugar(s) 3 times daily. Dx:E11.9 . Insulin: Yes - loratadine (CLARITIN) 10 mg tablet Take 1 tablet by mouth once daily. - Cholecalciferol, Vitamin D3, 1,000 unit cap Take 1 capsule by mouth once daily. - Insulin Center Point, Disposable, (RELION PEN NEEDLES) 32 x 5/32 " ndle Use as directed with insulin pen. [...] once daily. Problem List As Of Date 11/14/2024 Noted Resolved BENIGN HYPERTENSION [I10] 07/17/2005 Hyperlipidemia [...] kidney disease, stage 4 (severe) (HCC) *04/15/2023 correction current use of insulin ([facility]) [Z79.4] 10/15/2023 Heart failure, unspecified ([facility]) [I50.9] 04/15/2023 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*04/15/2023 Encounter Status:Closed by MACIEL BUSBY on 11/14/24 [facility] 10-20-2024 CNPN Telephone (MALISSA) ROSA MYERS ([id number]) 1950 F Date Time Provider Department 10/20/24 AMADO JAMES COU[facility]AL During your visit today, we recorded the following information about you: Rajni Jiménez, RN 10/20/2024 12:14 PM Signed joseph with [facility] is calling to let pcp that they are re-certifying patient for nursing for help with wound care once weekly for the next 4 weeks. Allergies As of Date: 10/20/2024 Noted Allergy Reaction DIANA INHIBITORS 07/17/2005 NEOMYCIN 07/17/2005 Date Reviewed: 09/26/2024 Reviewed by: Yaz Christy MA - Fully Assessed Reason for Visit: Clinical Update [5525] Cmt: re-cert for Prescriptions as of 10/20/2024 - insulin detemir U-100 (LEVEMIR) 100 unit/mL (3 mL) injection pen Inject 30 Units subcutaneously every morning. - insulin lispro (HUMALOG KWIKPEN INSULIN) 100 unit/mL INJECT 15 UNITS SUBCUTANEOUSLY THREE TIMES DAILY WITH MEALS DIRECTED - losartan (COZAAR) 50 mg tablet Take 50 mg by mouth once daily. - vitamin B complex (COMPLEX B-100 ORAL) Take 100 mg by mouth once daily. - dapagliflozin propanediol (FARXIGA) 10 mg tablet Take 1 tablet by mouth daily with breakfast. - amLODIPine (NORVASC) 5 mg tablet Take 1 tablet by mouth once daily. - blood sugar diagnostic (BLOOD GLUCOSE TEST) test strip Test blood sugar(s) 3 times daily. Dx: 250.02. Insulin: Yes - atorvastatin (LIPITOR) 40 mg tablet Take 1 tablet by mouth daily at bedtime. For cholesterol. - metOLazone (ZAROXOLYN) 5 mg tablet Take 1 tablet by mouth once daily. - clotrimazole-betameth asone (LOTRISONE) cream Apply to affected area two times a day. - furosemide (LASIX) 40 mg tablet Take 2 tablets by mouth once daily. - FLUoxetine (PROZAC) 10 mg capsule Take 1 capsule by mouth once daily. - carvedilol (COREG) 12.5 mg tablet Take 1 tablet by mouth two times a day. - blood sugar diagnostic (BLOOD GLUCOSE TEST) test strip Alvina test strips. Test blood sugars once daily as directed. Dx: E11.9. Insulin: Yes - Insulin Syringe-Needle U-100 1 mL 29 gauge x 1/2" 1 Each once daily. USE ONE SYRINGE FOR EACH INSULIN DOSE/ 1 PER DAY - insulin needles, DISPOSABLE, (PEN NEEDLE) 31 gauge x 5/16" Use 4 times daily to inject insulin - Blood-Glucose Meter misc 1 Each once daily. - Blood Sugar Diagnostic, Drum (ACCU-CHEK COMPACT TEST) strp Test blood sugar(s) 3 times daily. Dx:E11.9 . Insulin: Yes - loratadine (CLARITIN) 10 mg tablet Take 1 tablet by mouth once daily. - Cholecalciferol, Vitamin D3, 1,000 unit cap Take 1 capsule by mouth once daily. - Insulin Center [place], Disposable, (RELION PEN NEEDLES) 32 x 5/32 " ndle Use as directed with insulin pen. [...] once daily. Problem List As Of Date 10/20/2024 Noted Resolved BENIGN HYPERTENSION [I10] 07/17/2005 Hyperlipidemia [...] kidney disease, stage 4 (severe) (HCC) *04/15/2023 correction current use of insulin (HCC) [Z79.4] 10/15/2023 Heart failure, unspecified (HCC) [I50.9] 04/15/2023 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*04/15/2023 Encounter Status:Closed by RAJNI JIMÉNEZ on 10/20/24 [facility] ([id number]) 1950 F Date Time Provider Department 09/29/24 [facility] During your visit today, we recorded the following information about you: Elsie Brock LPN 09/29/2024 10:13 AM Signed Joseph from [facility] calling to confirm pt's insulin dosages. Advised her of instructions per Epic. She verbalizes understanding. She wanted to let pcp know that pt's fasting blood sugar this am was 189. Pt checks blood sugar 3 xs /day with meals. Pt reports that her blood sugars yesterday were between 200-260 by dinner time. They will be seeing pt once a week for 2 more weeks until the end of her episode and then they will re evaluate. She advises pt's toes are looking better and pt follws with wound center and Dr Erwin (quality control projectionist). IZABEL Yi Mark D, MD 09/29/2024 10:53 AM Signed Noted; continue with current dose of insulin Amado James MD Allergies As of Date: 09/29/2024 Noted Allergy Reaction DIANA INHIBITORS 07/17/2005 NEOMYCIN 07/17/2005 Date Reviewed: 09/26/2024 Reviewed by: Yaz Christy MA - Fully Assessed Reason for Visit: Patient Update [1234] Prescriptions as of 09/29/2024 - insulin detemir U-100 (LEVEMIR) 100 unit/mL (3 mL) injection pen Inject 30 Units subcutaneously every morning. - insulin lispro (HUMALOG KWIKPEN INSULIN) 100 unit/mL INJECT 15 UNITS SUBCUTANEOUSLY THREE TIMES DAILY WITH MEALS DIRECTED - losartan (COZAAR) 50 mg tablet Take 50 mg by mouth once daily. - vitamin B complex (COMPLEX B-100 ORAL) Take 100 mg by mouth once daily. - dapagliflozin propanediol (FARXIGA) 10 mg tablet Take 1 tablet by mouth daily with breakfast. - amLODIPine (NORVASC) 5 mg tablet Take 1 tablet by mouth once daily. - blood sugar diagnostic (BLOOD GLUCOSE TEST) test strip Test blood sugar(s) 3 times daily. Dx: 250.02. Insulin: Yes - atorvastatin (LIPITOR) 40 mg tablet Take 1 tablet by mouth daily at bedtime. For cholesterol. - metOLazone (ZAROXOLYN) 5 mg tablet Take 1 tablet by mouth once daily. - clotrimazole-betameth asone (LOTRISONE) cream Apply to affected area two times a day. - furosemide (LASIX) 40 mg tablet Take 2 tablets by mouth once daily. - FLUoxetine (PROZAC) 10 mg capsule Take 1 capsule by mouth once daily. - carvedilol (COREG) 12.5 mg tablet Take 1 tablet by mouth two times a day. - blood sugar diagnostic (BLOOD GLUCOSE TEST) test strip Alvina test strips. Test blood sugars once daily as directed. Dx: E11.9. Insulin: Yes - Insulin Syringe-Needle U-100 1 mL 29 gauge x 1/2" 1 Each once daily. USE ONE SYRINGE FOR EACH INSULIN DOSE/ 1 PER DAY - insulin needles, DISPOSABLE, (PEN NEEDLE) 31 gauge x 5/16" Use 4 times daily to inject insulin - Blood-Glucose Meter misc 1 Each once daily. - Blood Sugar Diagnostic, Drum (ACCU-CHEK COMPACT TEST) strp Test blood sugar(s) 3 times daily. Dx:E11.9 . Insulin: Yes - loratadine (CLARITIN) 10 mg tablet Take 1 tablet by mouth once daily. - Cholecalciferol, Vitamin D3, 1,000 unit cap Take 1 capsule by mouth once daily. - Insulin Center [place], Disposable, (RELION PEN NEEDLES) 32 x 5/32 " ndle Use as directed with insulin pen. [...] once daily. 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] 10/15/2023 Heart failure, unspecified ([facility]) [I50.9] 04/15/2023 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*04/15/2023 Encounter Status:Closed by YAZ CHRISTY on 09/29/24 [facility] CNOVon 09-26-2024 CNOV Office Visit (FAMPWS ) ROSA MYERS ([id number]) 1950 F Date Time Provider Department 09/26/24 9:40 AM [facility] During your visit today, we recorded the following information about you: Pulse Respiration Blood pressure Weight 76/minute 20/minute 108/60 110.3 kg Amado James MD 09/26/2024 2:09 PM Signed Chief Complaint Patient presents with: Follow Up: 1 week DM HPI Rosa Garrett Louis is a 74 year old female who presents here today for follow up. Pt here today with her son. Pt here for a 1 week follow up on her blood sugars. Her son has been helping her to manage the sugars and her Insulin. Rufina Soares has been working with getting pt AND son on adjusting insulin and blood sugar control. Pt AND Son were advised to increase Lantus to 20 units at bedtime and increase Humalog to 10 units with meals on 09/10/24 and to follow up with PCP in a week. Pt blood sugars on 09/11/24 were reported to be running 267-285 in AM, 297-350 at lunch, and 274-348 at Supper. Pt is checking BS 2-3 x per day. FBS in the mid 200's. Before lunch and dinner around 275, with occasional reading above 300. Patient states that it does go above 300 if she eats potatoes or sweets. Son and patient report that sugars are overall the same, prior to increasing the Insulin medication. Denies any low blood sugars. Overall reports feeling okay at this time. Pt was previously having low blood sugars and Insulin had to be tapered back. Was hospitalized twice and did have to go to a Correction and stay, but is now back home. Plans on staying home. Pt was previously prior to Hospitalizations was on Levemir 65 units once daily and Humalog 25 units TID. Past medical history, appointments, medications, allergies reviewed. [...] on File Prior to Visit Medication Sig losartan (COZAAR) 50 mg tablet Take 50 mg by mouth once daily. vitamin B complex (COMPLEX B-100 ORAL) Take 100 mg by mouth once daily. dapagliflozin propanediol (FARXIGA) 10 mg tablet Take 1 tablet by mouth daily with breakfast. amLODIPine (NORVASC) 5 mg tablet Take 1 tablet by mouth once daily. blood sugar diagnostic (BLOOD GLUCOSE TEST) test strip Test blood sugar(s) 3 times daily. Dx: 250.02. Insulin: Yes insulin glargine (LANTUS SOLOSTAR U-100 INSULIN) 100 unit/mL (3 mL) Inject 60 Units subcutaneously once daily. (Patient not taking: Reported on 08/28/2024) atorvastatin (LIPITOR) 40 mg tablet Take 1 tablet by mouth daily at bedtime. For cholesterol. metOLazone (ZAROXOLYN) 5 mg tablet Take 1 tablet by mouth once daily. insulin lispro (HUMALOG KWIKPEN INSULIN) 100 unit/mL INJECT 25 UNITS SUBCUTANEOUSLY THREE TIMES DAILY WITH MEALS DIRECTED clotrimazole-betameth asone (LOTRISONE) cream Apply to affected area two times a day. (Patient not taking: Reported on 08/28/2024) furosemide (LASIX) 40 mg tablet Take 2 tablets by mouth once daily. FLUoxetine (PROZAC) 10 mg capsule Take 1 capsule by mouth once daily. carvedilol (COREG) 12.5 mg tablet Take 1 tablet by mouth two times a day. valsartan (DIOVAN) 160 mg tablet Take 1 tablet by mouth once daily. (Patient not taking: Reported on 08/28/2024) blood sugar diagnostic (BLOOD GLUCOSE TEST) test strip Alvina test strips. Test blood sugars once daily as directed. Dx: E11.9. Insulin: Yes Insulin Syringe-Needle U-100 1 mL 29 gauge x 1/2" 1 Each once daily. USE ONE SYRINGE FOR EACH INSULIN DOSE/ 1 PER DAY insulin needles, DISPOSABLE, (PEN NEEDLE) 31 gauge x 5/16" Use 4 times daily to inject insulin Blood-Glucose Meter misc 1 Each once daily. Blood Sugar Diagnostic, Drum (ACCU-CHEK COMPACT TEST) strp Test blood sugar(s) 3 times daily. Dx:E11.9 . Insulin: Yes loratadine (CLARITIN) 10 mg tablet Take 1 tablet by mouth once daily. (Patient not taking: Reported on 08/28/2024) Cholecalciferol, Vitamin D3, 1,000 unit cap Take 1 capsule by mouth once daily. Insulin Center Point, Disposable, (RELI (more content not included)... Normal [facility] 09-15-2024 [facility] Telephone (FAMPWS) ROSA MYERS ([id number]) 1950 F Date Time Provider Department 09/15/24 AMADO JAMES FAMPWS During your visit today, we recorded the following information about you: Juana Castaneda RN 09/15/2024 10:42 AM Signed Juana calling from [facility] to report plan of care for patient and long-term will continue to visit patient 1 time a week for 2 weeks. Retirement will continue work with patient on wound care. No call back needed. RYNE Saldaña Jesse, APRN.CNP 09/15/2024 11:22 AM Signed Noted. Maciel Busby APRN.CNP Allergies As of Date: 09/15/2024 Noted Allergy Reaction DIANA INHIBITORS 07/17/2005 NEOMYCIN 07/17/2005 Date Reviewed: 08/28/2024 Reviewed by: Marguerite Rubio LPN - Fully Assessed Reason for Visit: Retirement Continued Plan of Care [Other] Prescriptions as of 09/15/2024 - losartan (COZAAR) 50 mg tablet Take 50 mg by mouth once daily. - vitamin B complex (COMPLEX B-100 ORAL) Take 100 mg by mouth once daily. - dapagliflozin propanediol (FARXIGA) 10 mg tablet Take 1 tablet by mouth daily with breakfast. - amLODIPine (NORVASC) 5 mg tablet Take 1 tablet by mouth once daily. - blood sugar diagnostic (BLOOD GLUCOSE TEST) test strip Test blood sugar(s) 3 times daily. Dx: 250.02. Insulin: Yes - insulin glargine (LANTUS SOLOSTAR U-100 INSULIN) 100 unit/mL (3 mL) Inject 60 Units subcutaneously once daily. - atorvastatin (LIPITOR) 40 mg tablet Take 1 tablet by mouth daily at bedtime. For cholesterol. - metOLazone (ZAROXOLYN) 5 mg tablet Take 1 tablet by mouth once daily. - insulin lispro (HUMALOG KWIKPEN INSULIN) 100 unit/mL INJECT 25 UNITS SUBCUTANEOUSLY THREE TIMES DAILY WITH MEALS DIRECTED - clotrimazole-betameth asone (LOTRISONE) cream Apply to affected area two times a day. - furosemide (LASIX) 40 mg tablet Take 2 tablets by mouth once daily. - FLUoxetine (PROZAC) 10 mg capsule Take 1 capsule by mouth once daily. - carvedilol (COREG) 12.5 mg tablet Take 1 tablet by mouth two times a day. - valsartan (DIOVAN) 160 mg tablet Take 1 tablet by mouth once daily. - blood sugar diagnostic (BLOOD GLUCOSE TEST) test strip Alvina test strips. Test blood sugars once daily as directed. Dx: E11.9. Insulin: Yes - Insulin Syringe-Needle U-100 1 mL 29 gauge x 1/2" 1 Each once daily. USE ONE SYRINGE FOR EACH INSULIN DOSE/ 1 PER DAY - insulin needles, DISPOSABLE, (PEN NEEDLE) 31 gauge x 5/16" Use 4 times daily to inject insulin - Blood-Glucose Meter misc 1 Each once daily. - Blood Sugar Diagnostic, Drum (ACCU-CHEK COMPACT TEST) strp Test blood sugar(s) 3 times daily. Dx:E11.9 . Insulin: Yes - loratadine (CLARITIN) 10 mg tablet Take 1 tablet by mouth once daily. - Cholecalciferol, Vitamin D3, 1,000 unit cap Take 1 capsule by mouth once daily. - Insulin [place], Disposable, (RELION PEN NEEDLES) 32 x 5/32 " ndle Use as directed with insulin pen. [...] once daily. Problem List As Of Date 09/15/2024 Noted Resolved BENIGN HYPERTENSION [I10] 07/17/2005 Hyperlipidemia [...] 09/30/2021 Chronic kidney disease, stage 4 (severe) ([facility]) *04/15/2023 correction current use of insulin ([facility]) [Z79.4] 10/15/2023 Heart failure, unspecified ([facility]) [I50.9] 04/15/2023 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*04/15/2023 Encounter Status:Closed by QIMACIEL DORANTES on 09/15/24 [facility] ROS[facility] MY[facility] ([id number]) 1950 F Date Time Provider Department 09/11/24 [facility] During your visit today, we recorded the following information about you: Juana Castaneda RN 09/11/2024 9:28 AM Signed Patient's son Marcell calls with patient's blood sugars. Date AM Lunch Supper 09/07 280 297 274 09/08 285 350 325 09/09 267 340 348 RYNE Saldaña Ashley, APRN.[facility] 09/11/2024 3:31 PM Signed Can you please call the patient's son and ask what dosing insulin are they up to at this time? Has he been titrating up the Lantus? How much Humalog has she been taking with her meals? Rufina Soares APRN.Marguerite Rajput LPN 09/11/2024 3:34 PM Signed TC to pt. LM to call office, ask for triage nurse to get results. IZABEL Lewis Laurie Lynn, LPN 09/12/2024 2:25 PM Signed Son called back and pt is on the following: Lantus 10 units in the evening Levemir 10 units before bed Humalog on a sliding scale. Pt takes her blood sugar and then goes to sliding scale to see how much to take. Pt does this 3 times a day. IZABEL Parish Ashley, APRN.[facility] 09/13/2024 10:52 AM Signed Can you please call the patient's son back and let them know that Levemir and Lantus are both long-acting insulin. She should only being taking one of these. At last office visit instructed to increase the Lantus per algorithm pending what her fasting sugars are. I would recommend increasing Lantus 20 units at bedtime and increase Humalog 10 units with meals. This may need to be adjusted. I would recommend follow-up with PCP in 1 week. Rufina Soares APRN.METALLURGIST HELPER Example insulin titration schedule: Start taking 10 units daily of Lantus. Check your blood sugar every morning before eating or drinking anything (fasting blood sugar level). Adjust your insulin every 3 days as follows: If your blood sugar is above 129, INCREASE your insulin by 2 unit. If your blood sugar is 80-129, CONTINUE your current insulin dose. If your blood sugar is less than 80, DECREASE your insulin by 2 unit. Continue this method until you reach your target fasting blood sugar level consistently (80-130) Marguerite Rubio LPN 09/13/2024 11:06 AM Signed Patient son notified of results, verbalizes understanding of instructions. Appt is made in 1 week follow up for DM. Marguerite Rubio LPN Allergies As of Date: 09/11/2024 Noted Allergy Reaction DIANA INHIBITORS 07/17/2005 NEOMYCIN 07/17/2005 Date Reviewed: 08/28/2024 Reviewed by: Marguerite Rubio LPN - Fully Assessed Reason for Visit: Patient Update [1234] Cmt: Blood Sugars Prescriptions as of 09/13/2024 - losartan (COZAAR) 50 mg tablet Take 50 mg by mouth once daily. - vitamin B complex (COMPLEX B-100 ORAL) Take 100 mg by mouth once daily. - dapagliflozin propanediol (FARXIGA) 10 mg tablet Take 1 tablet by mouth daily with breakfast. - amLODIPine (NORVASC) 5 mg tablet Take 1 tablet by mouth once daily. - blood sugar diagnostic (BLOOD GLUCOSE TEST) test strip Test blood sugar(s) 3 times daily. Dx: 250.02. Insulin: Yes - insulin glargine (LANTUS SOLOSTAR U-100 INSULIN) 100 unit/mL (3 mL) Inject 60 Units subcutaneously once daily. - atorvastatin (LIPITOR) 40 mg tablet Take 1 tablet by mouth daily at bedtime. For cholesterol. - metOLazone (ZAROXOLYN) 5 mg tablet Take 1 tablet by mouth once daily. - insulin lispro (HUMALOG KWIKPEN INSULIN) 100 unit/mL INJECT 25 UNITS SUBCUTANEOUSLY THREE TIMES DAILY WITH MEALS DIRECTED - clotrimazole-betameth asone (LOTRISONE) cream Apply to affected area two times a day. - furosemide (LASIX) 40 mg tablet Take 2 tablets by mouth once daily. - FLUoxetine (PROZAC) 10 mg capsule Take 1 capsule by mouth once daily. - carvedilol (COREG) 12.5 mg tablet Take 1 tablet by mouth two times a day. - valsartan (DIOVAN) 160 mg tablet Take 1 tablet by mouth once daily. - blood sugar diagnostic (BLOOD GLUCOSE TEST) test strip Alvina test strips. Test blood sugars once daily as directed. Dx: E11.9. Insulin: Yes - Insulin Syringe-Needle U-100 1 mL 29 gauge x 1/2" 1 Each once daily. USE ONE SYRINGE FOR EACH INSULIN DOSE/ 1 PER DAY - insulin needles, DISPOSABLE, (PEN NEEDLE) 31 gauge x 5/16" Use 4 times daily to inject insulin - Blood-Glucose Meter misc 1 Each once daily. - Blood Sugar Diagnostic, Drum (ACCU-CHEK COMPACT TEST) strp Test blood sugar(s) 3 times daily. Dx:E11.9 . Insulin: Yes - loratadine (CLARITIN) 10 mg tablet Take 1 tablet by mouth once daily. - Cholecalciferol, Vitamin D3, 1,000 unit cap Take 1 capsule by mouth once daily. - Insulin Center [place], Disposable, (RELION PEN NEEDLES) 32 x 5/32 " ndle Use as directed with insulin pen. 250.00. 4 injections/day. On insulin. - Blood-Glucose Meter, Drum-type (ACCU-CHEK COMPACT PLUS CARE) kit Use as directed (more content not included)... [facility] ROSA MY[facility] ([id number]) 1950 F Date Time Provider Department 09/08/24 AMADO JAMES COUMWS During your visit today, we recorded the following information about you: Rajni Jiménez RN 09/08/2024 11:07 AM Signed Isabel from [facility] is calling requesting an order for 1 more additional visit to see patient next week as patient was to receive paperwork in the mail that she was to go over with patient and she has not received it yet. Nurse is hoping that it will arrive by this time next week. please review and advise and contact nurse back with information Amado James MD 09/08/2024 12:00 PM Signed OK for one more visit as requested MD Santos Nava Kathryn, MA 09/08/2024 1:26 PM Signed Isabel notified and voiced understanding. Mariza Graham MA Allergies As of Date: 09/08/2024 Noted Allergy Reaction DIANA INHIBITORS 07/17/2005 NEOMYCIN 07/17/2005 Date Reviewed: 08/28/2024 Reviewed by: Marguerite Rubio LPN - Fully Assessed Reason for Visit: Orders [681] Cmt: visit Prescriptions as of 09/08/2024 - losartan (COZAAR) 50 mg tablet Take 50 mg by mouth once daily. - vitamin B complex (COMPLEX B-100 ORAL) Take 100 mg by mouth once daily. - dapagliflozin propanediol (FARXIGA) 10 mg tablet Take 1 tablet by mouth daily with breakfast. - amLODIPine (NORVASC) 5 mg tablet Take 1 tablet by mouth once daily. - blood sugar diagnostic (BLOOD GLUCOSE TEST) test strip Test blood sugar(s) 3 times daily. Dx: 250.02. Insulin: Yes - insulin glargine (LANTUS SOLOSTAR U-100 INSULIN) 100 unit/mL (3 mL) Inject 60 Units subcutaneously once daily. - atorvastatin (LIPITOR) 40 mg tablet Take 1 tablet by mouth daily at bedtime. For cholesterol. - metOLazone (ZAROXOLYN) 5 mg tablet Take 1 tablet by mouth once daily. - insulin lispro (HUMALOG KWIKPEN INSULIN) 100 unit/mL INJECT 25 UNITS SUBCUTANEOUSLY THREE TIMES DAILY WITH MEALS DIRECTED - clotrimazole-betameth asone (LOTRISONE) cream Apply to affected area two times a day. - furosemide (LASIX) 40 mg tablet Take 2 tablets by mouth once daily. - FLUoxetine (PROZAC) 10 mg capsule Take 1 capsule by mouth once daily. - carvedilol (COREG) 12.5 mg tablet Take 1 tablet by mouth two times a day. - valsartan (DIOVAN) 160 mg tablet Take 1 tablet by mouth once daily. - blood sugar diagnostic (BLOOD GLUCOSE TEST) test strip Alvina test strips. Test blood sugars once daily as directed. Dx: E11.9. Insulin: Yes - Insulin Syringe-Needle U-100 1 mL 29 gauge x 1/2" 1 Each once daily. USE ONE SYRINGE FOR EACH INSULIN DOSE/ 1 PER DAY - insulin needles, DISPOSABLE, (PEN NEEDLE) 31 gauge x 5/16" Use 4 times daily to inject insulin - Blood-Glucose Meter misc 1 Each once daily. - Blood Sugar Diagnostic, Drum (ACCU-CHEK COMPACT TEST) strp Test blood sugar(s) 3 times daily. Dx:E11.9 . Insulin: Yes - loratadine (CLARITIN) 10 mg tablet Take 1 tablet by mouth once daily. - Cholecalciferol, Vitamin D3, 1,000 unit cap Take 1 capsule by mouth once daily. - Insulin Center [place], Disposable, (RELION PEN NEEDLES) 32 x 5/32 " ndle Use as directed with insulin pen. [...] once daily. Problem List As Of Date 09/08/2024 Noted Resolved BENIGN HYPERTENSION [I10] 07/17/2005 Hyperlipidemia [...] kidney disease, stage 4 (severe) (HCC) *04/15/2023 correction current use of insulin (HCC) [Z79.4] 10/15/2023 Heart failure, unspecified (HCC) [I50.9] 04/15/2023 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*04/15/2023 Encounter Status:Closed by MARIZA GRAHAM on 09/08/24 [facility] 09-04-2024 [facility] Telephone (FAMPWS) ROSA MYERS ([id number]) 1950 F Date Time Provider Department 09/04/24 [facility] During your visit today, we recorded the following information about you: Angelica Nassar LPN 09/04/2024 10:01 AM Signed Isabel community mental health social worker from [facility] is asking for a verbal ok to follow up with patient on 09/08/24. Amado James MD 09/04/2024 3:00 PM Signed Ok for verbal ok to follow up with patient on 09/08/24 as requested MD Santos Nava Kathryn, MA 09/04/2024 3:46 PM Signed Isabel notified. Mariza Graham MA Allergies As of Date: 09/04/2024 Noted Allergy Reaction DIANA INHIBITORS 07/17/2005 NEOMYCIN 07/17/2005 Date Reviewed: 08/28/2024 Reviewed by: Marguerite Rubio LPN - Fully Assessed Reason for Visit: Orders [681] Prescriptions as of 09/04/2024 - losartan (COZAAR) 50 mg tablet Take 50 mg by mouth once daily. - vitamin B complex (COMPLEX B-100 ORAL) Take 100 mg by mouth once daily. - dapagliflozin propanediol (FARXIGA) 10 mg tablet Take 1 tablet by mouth daily with breakfast. - amLODIPine (NORVASC) 5 mg tablet Take 1 tablet by mouth once daily. - blood sugar diagnostic (BLOOD GLUCOSE TEST) test strip Test blood sugar(s) 3 times daily. Dx: 250.02. Insulin: Yes - insulin glargine (LANTUS SOLOSTAR U-100 INSULIN) 100 unit/mL (3 mL) Inject 60 Units subcutaneously once daily. - atorvastatin (LIPITOR) 40 mg tablet Take 1 tablet by mouth daily at bedtime. For cholesterol. - metOLazone (ZAROXOLYN) 5 mg tablet Take 1 tablet by mouth once daily. - insulin lispro (HUMALOG KWIKPEN INSULIN) 100 unit/mL INJECT 25 UNITS SUBCUTANEOUSLY THREE TIMES DAILY WITH MEALS DIRECTED - clotrimazole-betameth asone (LOTRISONE) cream Apply to affected area two times a day. - furosemide (LASIX) 40 mg tablet Take 2 tablets by mouth once daily. - FLUoxetine (PROZAC) 10 mg capsule Take 1 capsule by mouth once daily. - carvedilol (COREG) 12.5 mg tablet Take 1 tablet by mouth two times a day. - valsartan (DIOVAN) 160 mg tablet Take 1 tablet by mouth once daily. - blood sugar diagnostic (BLOOD GLUCOSE TEST) test strip Alvina test strips. Test blood sugars once daily as directed. Dx: E11.9. Insulin: Yes - Insulin Syringe-Needle U-100 1 mL 29 gauge x 1/2" 1 Each once daily. USE ONE SYRINGE FOR EACH INSULIN DOSE/ 1 PER DAY - insulin needles, DISPOSABLE, (PEN NEEDLE) 31 gauge x 5/16" Use 4 times daily to inject insulin - Blood-Glucose Meter misc 1 Each once daily. - Blood Sugar Diagnostic, Drum (ACCU-CHEK COMPACT TEST) strp Test blood sugar(s) 3 times daily. Dx:E11.9 . Insulin: Yes - loratadine (CLARITIN) 10 mg tablet Take 1 tablet by mouth once daily. - Cholecalciferol, Vitamin D3, 1,000 unit cap Take 1 capsule by mouth once daily. - Insulin [place], Disposable, (RELION PEN NEEDLES) 32 x 5/32 " ndle Use as directed with insulin pen. [...] once daily. 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 Tu - morning -187 noon- 230 evening - 237 Wed- morning -207 noon - 262 evening - 275 Thur - morning -256 noon - 303 evening -278 Please let Pt and son know if you want changes. IZABEL Lewis Ashley, APRN.METALLURGIST HELPER 09/01/2024 2:53 PM Signed Can you please call the patient's son back and let them know that I would recommend starting back on the Levemir, we can start at 10 units at bedtime. Continue to monitor fasting sugars in the morning. We can titrate this up pending the morning readings that she gets. She can continue with Humalog sliding scale for right now. Please update me in the next 3 to 5 days with readings. Example insulin titration schedule: Start taking 10 units daily of Lantus. Check your blood sugar every morning before eating or drinking anything (fasting blood sugar level). Adjust your insulin every 3 days as follows: If your blood sugar is above 129, INCREASE your insulin by 2 unit. If your blood sugar is 80-129, CONTINUE your current insulin dose. If your blood sugar is less than 80, DECREASE your insulin by 2 unit. Continue this method until you reach your target fasting blood sugar level consistently (80-130) Marguerite Rubio LPN 09/01/2024 2:58 PM Signed TC to Pt. son Unable to LM due to the mailbox is full. Will try again later. IZABEL Lewis Kathryn, MA 09/04/2024 10:34 AM Signed Pt son Marcell notified. Mariza Graham MA Allergies As of Date: 09/01/2024 Noted Allergy Reaction DIANA INHIBITORS 07/17/2005 NEOMYCIN 07/17/2005 Date Reviewed: 08/28/2024 Reviewed by: Marguerite Rubio LPN - Fully Assessed Prescriptions as of 09/04/2024 - losartan (COZAAR) 50 mg tablet Take 50 mg by mouth once daily. - vitamin B complex (COMPLEX B-100 ORAL) Take 100 mg by mouth once daily. - dapagliflozin propanediol (FARXIGA) 10 mg tablet Take 1 tablet by mouth daily with breakfast. - amLODIPine (NORVASC) 5 mg tablet Take 1 tablet by mouth once daily. - blood sugar diagnostic (BLOOD GLUCOSE TEST) test strip Test blood sugar(s) 3 times daily. Dx: 250.02. Insulin: Yes - insulin glargine (LANTUS SOLOSTAR U-100 INSULIN) 100 unit/mL (3 mL) Inject 60 Units subcutaneously once daily. - atorvastatin (LIPITOR) 40 mg tablet Take 1 tablet by mouth daily at bedtime. For cholesterol. - metOLazone (ZAROXOLYN) 5 mg tablet Take 1 tablet by mouth once daily. - insulin lispro (HUMALOG KWIKPEN INSULIN) 100 unit/mL INJECT 25 UNITS SUBCUTANEOUSLY THREE TIMES DAILY WITH MEALS DIRECTED - clotrimazole-betameth asone (LOTRISONE) cream Apply to affected area two times a day. - furosemide (LASIX) 40 mg tablet Take 2 tablets by mouth once daily. - FLUoxetine (PROZAC) 10 mg capsule Take 1 capsule by mouth once daily. - carvedilol (COREG) 12.5 mg tablet Take 1 tablet by mouth two times a day. - valsartan (DIOVAN) 160 mg tablet Take 1 tablet by mouth once daily. - blood sugar diagnostic (BLOOD GLUCOSE TEST) test strip Alvina test strips. Test blood sugars once daily as directed. Dx: E11.9. Insulin: Yes - Insulin Syringe-Needle U-100 1 mL 29 gauge x 1/2" 1 Each once daily. USE ONE SYRINGE FOR EACH INSULIN DOSE/ 1 PER DAY - insulin needles, DISPOSABLE, (PEN NEEDLE) 31 gauge x 5/16" Use 4 times daily to inject insulin - Blood-Glucose Meter misc 1 Each once daily. - Blood Sugar Diagnostic, Drum (ACCU-CHEK COMPACT TEST) strp Test blood sugar(s) 3 times daily. Dx:E11.9 . Insulin: Yes - loratadine (CLARITIN) 10 mg tablet Take 1 tablet by mouth once daily. - Cholecalciferol, Vitamin D3, 1,000 unit cap Take 1 capsule by mouth once daily. - Insulin Center [place], Disposable, (RELION PEN NEEDLES) 32 x 5/32 " ndle Use as directed with insulin pen. [...] once daily. Problem List As Of Date 09/01/2024 Noted Resolved BENIGN HYPERTENSION [I10] 07/17/2005 Hyperlipidemia [E78.5] 07/17/2005 OSTEOARTHROS NOS-UNSPEC [M19.90] 07/17/2005 Allergic rhinitis [J30.9] 07/17/2005 DIFFUS CYSTIC MASTOPATHY [N60.19] 07/17/2005 Type 2 diabetes mellitus with diabetic chronic *04/15/2023 Personal history of transient ischemic attack (*11/15/2013 Morbid obesity with body mass index of 40.0-44.*02/09/2018 Stage 3b chronic kidney disease (HCC) [N18.32] 09/30/2021 10/15/2023 Anemi (more content not included)... Normal [facility] CBC W Auto Differential pane l (Bld)on 08-31-2024 Basophils (Bld) [#/Vol] 0.06 10*3/uL Normal <0.11 [facility] Comment on above: Order Comment: Speci men Type: BLOOD SPECIMENOrdering Facility: [facility] Address: [address] [place] [address] Performed By: #### 5 7021-8 ####[facility] LABCLIA [id number] [place] [address] [place] Basophils/100 WBC (Bld) 0.8 % Normal [facility] Comment on above: Order Comment: Speci men Type: BLOOD SPECIMENOrdering Facility: [facility] Address: [address] [place] [address] Performed By: #### 5 7021-8 ####[facility] LABCLIA [id number] [place] [address] [place] Differential cell count method Nom (Bld) Auto Normal [facility] Comment on above: Order Comment: Speci men Type: BLOOD SPECIMENOrdering Facility: [facility] Address: [address] [place] [address] Performed By: #### 5 7021-8 ####[facility] LABCLIA [id number] [place] [address] [place] Eosinophils (Bld) [#/Vol] 0.20 10*3/uL Normal <0.46 [facility] Comment on above: Order Comment: Speci men Type: BLOOD SPECIMENOrdering Facility: [facility] Address: [address] [place] [address] Performed By: #### 5 7021-8 ####[facility] LABCLIA [id number] [place] [address] [place] Eosinophils/100 WBC (Bld) 2.6 % Normal [facility] Comment on above: Order Comment: Speci men Type: BLOOD SPECIMENOrdering Facility: [facility] Address: [address] [place] [address] Performed By: #### 5 7021-8 ####[facility] LABCLIA [id number] [place] [address] [place] Erythrocyte distribution width (RBC) [Ratio] 18.2 % High 11.5-15.0 [facility] Comment on above: Order Comment: Speci men Type: BLOOD SPECIMENOrdering Facility: [facility] Address: [address] [place] [address] Performed By: #### 5 7021-8 ####[facility] LABCLIA [id number] [place] [address] [place] Hematocrit (Bld) [Volume fraction] 28.2 % Low 36.0-46.0 [facility] Comment on above: Order Comment: Speci men Type: BLOOD SPECIMENOrdering Facility: [facility] Address: [address] [place] [address] Performed By: #### 5 7021-8 ####[facility] LABCLIA [id number] [place] [address] [place] Hemoglobin (Bld) [Mass/Vol] 8.3 g/dL Low 11.5-15.5 [facility] Comment on above: Order Comment: Speci men Type: BLOOD SPECIMENOrdering Facility: [facility] Address: [address] [place] [address] Performed By: #### 5 7021-8 ####[facility] LABCLIA [id number] [place] [address] [place] Immature granulocytes (Bld) [#/Vol] 10*3/uL Normal <0.10 [facility] Comment on above: Order Comment: Speci men Type: BLOOD SPECIMENOrdering Facility: [facility] Address: [address] [place] [address] Performed By: #### 5 7021-8 ####[facility] LABCLIA [id number] [place] [address] [place] Immature granulocytes/100 WBC (Bld) 0.3 % Normal [facility] Comment on above: Order Comment: Speci men Type: BLOOD SPECIMENOrdering Facility: [facility] Address: [address] [place] [address] Performed By: #### 5 7021-8 ####[facility] LABCLIA [id number] [place] [address] [place] Lymphocytes (Bld) [#/Vol] 1.12 10*3/uL Normal 1.00-4.00 [facility] Comment on above: Order Comment: Speci men Type: BLOOD SPECIMENOrdering Facility: [facility] Address: [address] [place] [address] Performed By: #### 5 7021-8 ####[facility] LABCLIA [id number] [place] [address] [place] Lymphocytes/100 WBC (Bld) 14.5 % Normal [facility] Comment on above: Order Comment: Speci men Type: BLOOD SPECIMENOrdering Facility: [facility] Address: [address] [place] [address] Performed By: #### 5 7021-8 ####[facility] LABCLIA [id number] [place] [address] [place] MCH (RBC) [Entitic mass] 25.2 pg Low 26.0-34.0 [facility] Comment on above: Order Comment: Speci men Type: BLOOD SPECIMENOrdering Facility: [facility] Address: [address] [place] [address] Performed By: #### 5 7021-8 ####[facility] LABCLIA [id number] [place] [address] [place] MCHC (RBC) [Mass/Vol] 29.4 g/dL Low 30.5-36.0 [facility] Comment on above: Order Comment: Speci men Type: BLOOD SPECIMENOrdering Facility: [facility] Address: [address] [place] [address] Performed By: #### 5 7021-8 ####[facility] LABIA [id number] [place] [address] [place] MCV (RBC) [Entitic vol] 85.7 fL Normal 80.0-100.0 C [facility] Comment on above: Order Comment: Speci men Type: BLOOD SPECIMENOrdering Facility: [facility] Address: [address] [place] [address] Performed By: #### 5 7021-8 ####[facility] LABCLIA [id number] [place] [address] [place] Monocytes (Bld) [#/Vol] 0.55 10*3/uL Normal <0.87 [facility] Comment on above: Order Comment: Speci men Type: BLOOD SPECIMENOrdering Facility: [facility] Address: [address] [place] [address] Performed By: #### 5 7021-8 ####[facility] LABCLIA [id number] [place] [address] [place] Monocytes/100 WBC (Bld) 7.1 % Normal [facility] Comment on above: Order Comment: Speci men Type: BLOOD SPECIMENOrdering Facility: [facility] Address: [address] [place] [address] Performed By: #### 5 7021-8 ####[facility] LABCLIA [id number] [place] [address] [place] Neutrophils (Bld) [#/Vol] 5.77 10*3/uL Normal 1.45-7.50 [facility] Comment on above: Order Comment: Speci men Type: BLOOD SPECIMENOrdering Facility: [facility] Address: [address] [place] [address] Performed By: #### 5 7021-8 ####[facility] LABCLIA [id number] [place] [address] [place] Neutrophils/100 WBC (Bld) 74.7 % Normal [facility] Comment on above: Order Comment: Speci men Type: BLOOD SPECIMENOrdering Facility: [facility] Address: [address] [place] [address] Performed By: #### 5 7021-8 ####[facility] LABCLIA [id number] [place] [address] [place] Nucleated RBC (Bld) [#/Vol] 10*3/uL Normal <0.01 [facility] Comment on above: Order Comment: Speci men Type: BLOOD SPECIMENOrdering Facility: [facility] Address: [address] [place] [address] Performed By: #### 5 7021-8 ####[facility] LABCLIA [id number] [place] [address] [place] Nucleated RBC/100 WBC (Bld) [Ratio] 0.0 /100 WBC Normal [facility] Comment on above: Order Comment: Speci men Type: BLOOD SPECIMENOrdering Facility: [facility] Address: [address] [place] [address] Performed By: #### 5 7021-8 ####[facility] LABIA [id number] [place] [address] [place] Platelet mean volume (Bld) [Entitic vol] 11.3 fL Normal 9.0-12.7 [facility] Comment on above: Order Comment: Speci men Type: BLOOD SPECIMENOrdering Facility: [facility] Address: [address] [place] [address] Performed By: #### 5 7021-8 ####[facility] LABIA [id number] [place] [address] [place] Platelets (Bld) [#/Vol] 246 10*3/uL Normal 150-400 [facility] Comment on above: Order Comment: Speci men Type: BLOOD SPECIMENOrdering Facility: [facility] Address: [address] [place] [address] Performed By: #### 5 7021-8 ####[facility] LABIA [id number] [place] [address] [place] RBC (Bld) [#/Vol] 3.29 10*6/uL Low 3.90-5.20 [facility] Comment on above: Order Comment: Speci men Type: BLOOD SPECIMENOrdering Facility: [facility] Address: [address] [place] [address] Performed By: #### 5 7021-8 ####[facility] LABIA [id number] [place] [address] [place] WBC (Bld) [#/Vol] 7.72 10*3/uL Normal 3.70-11.00 [facility] Comment on above: Order Comment: Speci men Type: BLOOD SPECIMENOrdering Facility: [facility] Address: [address] [place] [address] Performed By: #### 5 7021-8 ####[facility] LABCLIA [id number] [place] [address] [place] Comprehensive metabolic 2000 panelon 08-31-2024 Albumin [Mass/Vol] 3.7 g/dL Low 3.9-4.9 [facility] Comment on above: Order Comment: Speci men Type: BLOOD SPECIMENOrdering Facility: [facility] Address: [address] [place] [address] Performed By: #### 2 4323-8, 60185-5 ####[facility] LABCLIA [id number] [place] [address] [place] ALP [Catalytic activity/Vol] 76 U/L Normal 34-123 [facility] Comment on above: Order Comment: Speci men Type: BLOOD SPECIMENOrdering Facility: [facility] Address: [address] [place] [address] Performed By: #### 2 4323-8, 67975-6 ####[facility] LABCLIA [id number] [place] [address] [place] ALT [Catalytic activity/Vol] 10 U/L Normal 7-38 [facility] Comment on above: Order Comment: Speci men Type: BLOOD SPECIMENOrdering Facility: [facility] Address: [address] [place] [address] Performed By: #### 2 4323-8, 19569-6 ####[facility] LABCLIA [id number] [place] [id number] [place] Anion gap [Moles/Vol] 15 mmol/L Normal 8-15 [facility] Comment on above: Order Comment: Speci men Type: BLOOD SPECIMENOrdering Facility: [facility] Address: [address] [place] [id number] Performed By: #### 2 4323-8, 48545-7 ####[facility] LABIA [id number] [place] [address] [place] AST [Catalytic activity/Vol] 11 U/L Low 13-35 [facility] Comment on above: Order Comment: Speci men Type: BLOOD SPECIMENOrdering Facility: [facility] Address: [address] [place] [address] Performed By: #### 2 4323-8, 66882-3 ####[facility] LABIA [id number] [place] [address] [place] Bilirubin [Mass/Vol] 0.4 mg/dL Normal 0.2-1.3 [facility] Comment on above: Order Comment: Speci men Type: BLOOD SPECIMENOrdering Facility: [facility] Address: [address] [place] [address] Performed By: #### 2 4323-8, 37058-3 ####[facility] LABIA [id number] [place] [address] [place] Calcium [Mass/Vol] 9.4 mg/dL Normal 8.5-10.2 [facility] Comment on above: Order Comment: Speci men Type: BLOOD SPECIMENOrdering Facility: [facility] Address: [address] [place] [address] Performed By: #### 2 4323-8, 31053-0 ####[facility] LABIA [id number] [place] [address] [place] Chloride [Moles/Vol] 100 mmol/L Normal 98-107 [facility] Comment on above: Order Comment: Speci men Type: BLOOD SPECIMENOrdering Facility: [facility] Address: [address] [place], [place] [address] Performed By: #### 2 4323-8, 27624-9 ####[facility] LABIA [id number] [place] [address] [place] CO2 [Moles/Vol] 22 mmol/L Normal 22-30 [facility] Comment on above: Order Comment: Speci men Type: BLOOD SPECIMENOrdering Facility: [facility] Address: [address] [place] [address] Performed By: #### 2 4323-8, 98898-3 ####[facility] LABIA [id number] [place] [address] [place] Creatinine [Mass/Vol] 1.79 mg/dL High 0.58-0.96 [facility] Comment on above: Order Comment: Speci men Type: BLOOD SPECIMENOrdering Facility: [facility] Address: [address] [place] [address] Performed By: #### 2 4323-8, 37576-0 ####[facility] [id number] [place] [address] [place] Creatinine and Glomerular filtration rate.predicted panel (S/P/Bld) 29 mL/min/1.73m??? Low >=60 [facility] Comment on above: Order Comment: Speci men Type: BLOOD SPECIMENOrdering Facility: [facility] Address: [address] [place] [address] Result Comment: Kathrine mated Glomerular Filtration Rate [...] reflect actual GFR. Performed By: #### 2 4323-8, 78239-8 ####[facility] LABIA [id number] [place] [address] [place] Glucose [Mass/Vol] 271 mg/dL High 74-99 [facility] Comment on above: Order Comment: Speci men Type: BLOOD SPECIMENOrdering Facility: [facility] Address: [address] [place] [address] Result Comment: The [place] Diabetes Association (ADA) provides guidance for cutoff [...] Standards of Medical Care in Diabetes 2016, [place] Diabetes Association. Diabetes Care. 2016.39(Suppl 1). Performed By: #### 2 4323-8, 88143-0 ####[facility] LABCLIA [id number] [place] [address] [place] Potassium [Moles/Vol] 4.4 mmol/L Normal 3.7-5.1 [facility] Comment on above: Order Comment: Maxim davies Type: BLOOD SPECIMENOrdering Facility: [facility] Address: [address] [place] [address] Performed By: #### 2 4323-8, 68556-0 ####[facility] LABCLIA [id number] [place] [address] [place] Protein [Mass/Vol] 6.9 g/dL Normal 6.3-8.0 [facility] Comment on above: Order Comment: Trevori men Type: BLOOD SPECIMENOrdering Facility: [facility] Address: [address] [place] [address] Performed By: #### 2 4323-8, 92092-8 ####[facility] LABCLIA [id number] [place] [address] [place] Sodium [Moles/Vol] 137 mmol/L Normal 136-144 [facility] Comment on above: Order Comment: Trevori men Type: BLOOD SPECIMENOrdering Facility: [facility] Address: [address] [place] [address] Performed By: #### 2 4323-8, 61242-8 ####[facility] LABCLIA [id number] [place] [id number] [place] Urea nitrogen [Mass/Vol] 28 mg/dL High 7-21 [facility] Comment on above: Order Comment: Trevori men Type: BLOOD SPECIMENOrdering Facility: [facility] Address: [address] [place] [address] Performed By: #### 2 4323-8, 54064-2 ####[facility] LABIA [id number] [place] [address] [place] HbA1c (Bld)on 08-31-2024 Average glucose Estimated from glycated hemoglobin (Bld) [Mass/Vol] 111 mg/dL Normal [facility] Comment on above: Order Comment: Maxim men Type: BLOOD SPECIMENOrdering Facility: [facility] Address: [address] [place] [address] Result Comment: eAG: (Estimated average glucose) is a calculated value from HgbA1c and is life assurance representative of the average blood glucose level in the last 2-3 month period. Performed By: #### 5 5454-3 ####[facility] [id number] [place] [address] [place] HbA1c (Bld) [Mass fraction] 5.5 % Normal 4.3-5.6 [facility] Comment on above: Order Comment: Maxim keke Type: BLOOD SPECIMENOrdering Facility: [facility] Address: [address] [place] [address] Result Comment: Julian [place] Diabetes Association guidelines indicate that patients with HgbA1c in the range 5.7-6.4% are at increased risk for development of diabetes, and intervention by lifestyle modification may be beneficial. HgbA1c greater or equal to 6.5% is considered diagnostic of diabetes. Performed By: #### 5 5454-3 ####[facility] LABCLIA [id number] [place] [address] [place] Lipid 1996 panelon 4 Cholesterol [Mass/Vol] 116 mg/dL Normal <200 [facility] Comment on above: Order Comment: Speci men Type: BLOOD SPECIMENOrdering Facility: [facility] Address: [address] [place] [address] Result Comment: <200 mg/dL, Desirable 200-239 mg/dL, Borderline high >239 mg/dL, High Performed By: #### 2 4323-8, 48149-9 ####[facility] LABCLIA [id number] [address] STATES OF [facility] Cholesterol in HDL [Mass/Vol] 35 mg/dL Low >39 [facility] Comment on above: Order Comment: Speci men Type: BLOOD SPECIMENOrdering Facility: [facility] Address: [address] [place] [address] Result Comment: 40-5 9 mg/dL, Acceptable >59 mg/dL, High: Negative risk factor for coronary heart disease <40 mg/dL, Low: Positive risk factor for coronary heart disease Performed By: #### 2 4323-8, 13301-3 ####[facility] LABCLIA [id number] [address] STATES OF [facility] Cholesterol in LDL [Mass/Vol] 54 mg/dL Normal <100 [facility] Comment on above: Order Comment: Speci men Type: BLOOD SPECIMENOrdering Facility: [facility] Address: [address] [place] [address] Result Comment: <100 mg/dL, Optimal 100-129 mg/dL, Near optimal/above optimal 130-159 mg/dL, Borderline high 160-189 mg/dL, High >189 mg/dL, Very high Secondary prevention optimal LDL Cholesterol levels are recommended to be < 70 mg/dL Performed By: #### 2 4323-8, 77345-6 ####[facility] LABCLIA [id number] [place] [address] [place] Cholesterol in LDL/Cholesterol in HDL [Mass ratio] 1.54 {ratio} Normal <2.54 [facility] Comment on above: Order Comment: Trevori men Type: BLOOD SPECIMENOrdering Facility: [facility] Address: [address] [place] [address] Result Comment: Refe rence: 1. National Cholesterol Education Program ATP III Guideline At-A-Glance Quick Desk Reference: National Heart, Lung, and Blood [place]. National Institutes of Health. 2001: NIH Publication No. 01-3305. 2. An International Atherosclerosis Society position paper: global recommendations for the management of dyslipidemia: executive summary, Atherosclerosis. 2014: 232(2):410-413. Performed By: #### 2 4323-8, 39288-8 ####[facility] LABCLIA [id number] [place] [address] [place] Cholesterol in VLDL [Mass/Vol] 27 mg/dL Normal <30 [facility] Comment on above: Order Comment: Trevori keke Type: BLOOD SPECIMENOrdering Facility: [facility] Address: [address] [place] [address] Performed By: #### 2 4323-8, 52620-7 ####[facility] LABCLIA [id number] [place] [address] [place] Cholesterol non HDL [Mass/Vol] 81 mg/dL Normal <130 [facility] Comment on above: Order Comment: Speci men Type: BLOOD SPECIMENOrdering Facility: [facility] Address: [address] [place] [address] Result Comment: <130 mg/dL, Optimal 130-159 mg/dL, Near optimal/above optimal 160-189 mg/dL, Borderline high 190-219 mg/dL, High >219 mg/dL, Very high Secondary prevention optimal non HDL Cholesterol levels are recommended to be <100 mg/dL Performed By: #### 2 4323-8, 89631-3 ####[facility] LABCLIA [id number] [place] [address] [place] Cholesterol.total/Antonia sterol in HDL [Mass ratio] 3.31 {ratio} Normal <5.10 [facility] Comment on above: Order Comment: Speci men Type: BLOOD SPECIMENOrdering Facility: [facility] Address: [address] [place] [address] Performed By: #### 2 4323-8, 50500-8 ####[facility] LABCLIA [id number] [address] [place] FASTING TIME 12 hrs Normal [facility] Comment on above: Order Comment: Speci men Type: BLOOD SPECIMENOrdering Facility: [facility] Address: [address] [place] [address] Performed By: #### 2 4323-8, 71675-4 ####[facility] LABCLIA [id number] [address] [place] Triglyceride [Mass/Vol] 133 mg/dL Normal <150 [facility] Comment on above: Order Comment: Speci men Type: BLOOD SPECIMENOrdering Facility: [facility] Address: [address] [place] [address] Result Comment: <150 mg/dL, Normal 150-199 mg/dL, Borderline high 200-499 mg/dL, High >499 mg/dL, Very high Performed By: #### 2 4323-8, 70508-6 ####[facility] LABCLIA [id number] [address] [place] CNPNancie 08-30-2024 CNPN Telephone (FAMPWS) ROSA MYERS ([id number]) 1950 F Date Time Provider Department 08/30/24 AMADO JAMES During your visit today, we recorded the following information about you: Aimee French RN 08/30/2024 1:38 PM Signed RICKY Gardner @ [facility] calling with plan of care. OT will see patient 1 x/weekf for one week, 2 x/week for two weeks, and 1x/week for one week for safety and strength training needed for ADLs. If agree, no call back needed. RYNE Duval Ashley, APRN.RENEE 08/31/2024 7:28 AM Signed Noted, thank you Rufina Soares APRN.METALLURGIST HELPER Allergies As of Date: 08/30/2024 Noted Allergy Reaction DIANA INHIBITORS 07/17/2005 NEOMYCIN 07/17/2005 Date Reviewed: 08/28/2024 Reviewed by: Marguerite Rubio LPN - Fully Assessed Reason for Visit: OT plan of care [Other] Prescriptions as of 08/31/2024 - losartan (COZAAR) 50 mg tablet Take 50 mg by mouth once daily. - vitamin B complex (COMPLEX B-100 ORAL) Take 100 mg by mouth once daily. - dapagliflozin propanediol (FARXIGA) 10 mg tablet Take 1 tablet by mouth daily with breakfast. - amLODIPine (NORVASC) 5 mg tablet Take 1 tablet by mouth once daily. - blood sugar diagnostic (BLOOD GLUCOSE TEST) test strip Test blood sugar(s) 3 times daily. Dx: 250.02. Insulin: Yes - insulin glargine (LANTUS SOLOSTAR U-100 INSULIN) 100 unit/mL (3 mL) Inject 60 Units subcutaneously once daily. - atorvastatin (LIPITOR) 40 mg tablet Take 1 tablet by mouth daily at bedtime. For cholesterol. - metOLazone (ZAROXOLYN) 5 mg tablet Take 1 tablet by mouth once daily. - insulin lispro (HUMALOG KWIKPEN INSULIN) 100 unit/mL INJECT 25 UNITS SUBCUTANEOUSLY THREE TIMES DAILY WITH MEALS DIRECTED - clotrimazole-betameth asone (LOTRISONE) cream Apply to affected area two times a day. - furosemide (LASIX) 40 mg tablet Take 2 tablets by mouth once daily. - FLUoxetine (PROZAC) 10 mg capsule Take 1 capsule by mouth once daily. - carvedilol (COREG) 12.5 mg tablet Take 1 tablet by mouth two times a day. - valsartan (DIOVAN) 160 mg tablet Take 1 tablet by mouth once daily. - blood sugar diagnostic (BLOOD GLUCOSE TEST) test strip Alvina test strips. Test blood sugars once daily as directed. Dx: E11.9. Insulin: Yes - Insulin Syringe-Needle U-100 1 mL 29 gauge x 1/2" 1 Each once daily. USE ONE SYRINGE FOR EACH INSULIN DOSE/ 1 PER DAY - insulin needles, DISPOSABLE, (PEN NEEDLE) 31 gauge x 5/16" Use 4 times daily to inject insulin - Blood-Glucose Meter misc 1 Each once daily. - Blood Sugar Diagnostic, Drum (ACCU-CHEK COMPACT TEST) strp Test blood sugar(s) 3 times daily. Dx:E11.9 . Insulin: Yes - loratadine (CLARITIN) 10 mg tablet Take 1 tablet by mouth once daily. - Cholecalciferol, Vitamin D3, 1,000 unit cap Take 1 capsule by mouth once daily. - Insulin Center Point, Disposable, (RELION PEN NEEDLES) 32 x 5/32 " ndle Use as directed with insulin pen. [...] once daily. Problem List As Of Date 08/30/2024 Noted Resolved BENIGN HYPERTENSION [I10] 07/17/2005 Hyperlipidemia [...] 09/30/2021 Chronic kidney disease, stage 4 (severe) ([facility]) *04/15/2023 correction current use of insulin ([facility]) [Z79.4] 10/15/2023 Heart failure, unspecified ([facility]) [I50.9] 04/15/2023 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*04/15/2023 Encounter Status:Closed by RUFINA SOARES on 08/31/24 [facility] ROSA MY[facility] ([id number]) 1950 Date Time Provider Department 08/29/24 AMADO JAMES [facility] During your visit today, we recorded the following information about you: Juana Castaneda RN 08/29/2024 11:01 AM Signed Rufina PT calling from [facility] to report plan of care for patient and physical therapy will visit patient 1 time a week for 1 week, 2 times a week for 3 weeks and 1 time a week for 1 week. Physical therapy will work with patient on lower extremity strength, transfer and gait training, and balance and endurance. No call back needed unless there are questions RYNE Saldaña Mark D, MD 08/29/2024 2:06 PM Signed Leeroy James MD Allergies As of Date: 08/29/2024 Noted Allergy Reaction DIANA INHIBITORS 07/17/2005 NEOMYCIN 07/17/2005 Date Reviewed: 08/28/2024 Reviewed by: Marguerite Rubio LPN - Fully Assessed Reason for Visit: Physical Therapy Plan of Care [Other] Prescriptions as of 08/29/2024 - losartan (COZAAR) 50 mg tablet Take 50 mg by mouth once daily. - vitamin B complex (COMPLEX B-100 ORAL) Take 100 mg by mouth once daily. - dapagliflozin propanediol (FARXIGA) 10 mg tablet Take 1 tablet by mouth daily with breakfast. - amLODIPine (NORVASC) 5 mg tablet Take 1 tablet by mouth once daily. - blood sugar diagnostic (BLOOD GLUCOSE TEST) test strip Test blood sugar(s) 3 times daily. Dx: 250.02. Insulin: Yes - insulin glargine (LANTUS SOLOSTAR U-100 INSULIN) 100 unit/mL (3 mL) Inject 60 Units subcutaneously once daily. - atorvastatin (LIPITOR) 40 mg tablet Take 1 tablet by mouth daily at bedtime. For cholesterol. - metOLazone (ZAROXOLYN) 5 mg tablet Take 1 tablet by mouth once daily. - insulin lispro (HUMALOG KWIKPEN INSULIN) 100 unit/mL INJECT 25 UNITS SUBCUTANEOUSLY THREE TIMES DAILY WITH MEALS DIRECTED - clotrimazole-betameth asone (LOTRISONE) cream Apply to affected area two times a day. - furosemide (LASIX) 40 mg tablet Take 2 tablets by mouth once daily. - FLUoxetine (PROZAC) 10 mg capsule Take 1 capsule by mouth once daily. - carvedilol (COREG) 12.5 mg tablet Take 1 tablet by mouth two times a day. - valsartan (DIOVAN) 160 mg tablet Take 1 tablet by mouth once daily. - blood sugar diagnostic (BLOOD GLUCOSE TEST) test strip Alvina test strips. Test blood sugars once daily as directed. Dx: E11.9. Insulin: Yes - Insulin Syringe-Needle U-100 1 mL 29 gauge x 1/2" 1 Each once daily. USE ONE SYRINGE FOR EACH INSULIN DOSE/ 1 PER DAY - insulin needles, DISPOSABLE, (PEN NEEDLE) 31 gauge x 5/16" Use 4 times daily to inject insulin - Blood-Glucose Meter misc 1 Each once daily. - Blood Sugar Diagnostic, Drum (ACCU-CHEK COMPACT TEST) strp Test blood sugar(s) 3 times daily. Dx:E11.9 . Insulin: Yes - loratadine (CLARITIN) 10 mg tablet Take 1 tablet by mouth once daily. - Cholecalciferol, Vitamin D3, 1,000 unit cap Take 1 capsule by mouth once daily. - Insulin Center Point, Disposable, (RELION PEN NEEDLES) 32 x 5/32 " ndle Use as directed with insulin pen. [...] once daily. 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] 10/15/2023 Heart failure, unspecified (HCC) [I50.9] 04/15/2023 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*04/15/2023 Encounter Status:Closed by AMADO [facility]AMES on 08[facility]29/[facility] ROSA MYERS ([id number]) 1950 F Date Time Provider Department 08/28/24 2:00 PM RUFINA SOARES [facility] During your visit today, we recorded the following information about you: Pulse Respiration Blood pressure Weight 70/minute 16/minute 128/60 113 kg Rufina Soares APRN.CNP 08/28/2024 2:08 PM Addendum Get fasting labs completed, no food 10 hours prior. May have black coffee and water Recommend monitoring sugars at home, fasting in the morning, lunch and dinner. Write these readings down and call the office in 3 days. Recommend doing a sliding scale insulin Humalog vs the 25 units with meals for the time being. Continue to eat a low carb diet, increase lean protein, veggies, Watch salt and processed foods in the diet. Stay well hydrated Recommend a probiotic or increase yogurt in diet to help with diarrhea. Follow up in 3 months or sooner pending lab results. Sliding scale. If Blood Glucose (mg/dL) is Less than 100 0 units 101-150 0 units 151-175 2 units 176-200 3 units 201-225 4 units 226-250 5 units 251-275 6 units 276-300 7 units 301-325 8 units 326-350 9 units >350 10 units and Notify Provider Rufina Soares APRN.RENEE 08/28/2024 4:06 PM Signed This is a 74 year old female who presents today with: Patient presents with: Follow Up: Hosptial follow up hupoglycemia HISTORY OF PRESENT ILLNESS: Rosa Myers is a 74 year old female. Patient presents with: Follow Up: Hosptial follow up hupoglycemia HOSPITAL/ER FOLLOW UP: Reason for visit: Altered level of consciousness transported by EMS Which facility: [facility] Date of visit: 08/19/2024-08/22/2024 Diagnosis: Hypoglycemia, hypothermia, chronic anemia, CHF, CKD stage IV Testing done: Blood sugar on ER arrival was 41. Brain CT showed diffuse involutional changes. A remote lacunar infarct in the left internal capsule and brock radiator. Extensive carotid and vertebral calcifications. No intracranial mass, hemorrhage or acute infarct. Chest x-ray shows vascular congestion without desi interstitial edema. Interstitial prominence/infiltrate at the right lung base no consolidation no effusion. Treatment given: A1c was only 5.2, discontinued Lantus in the hospital. Held aspirin in the hospital due to chronic anemia, hemoglobin 7.9. Discussed discontinuing Jardiance if hypoglycemia symptoms continued. Reduced carvedilol 12.5 mg twice daily and losartan 50 mg daily. Current symptoms: Has been feeling well since hospital discharge. Son present at today's appointment. Fasting sugars 200's the past couple of days. Has been holding Lantus at this time per hospital recommendation. Still taking Humalog 25 units TID with meals, however glucose at lunch and dinner yesterday was in the 70s. Therefore she held her insulin. Still taking Farxiga 10 mg daily. History of diabetic ulcers/wounds Follows with cardiology, [facility], . Living with , son lives in [facility] on same property. PAST MEDICAL HISTORY: PAST MEDICAL HISTORY Diagnosis Date Allergic rhinitis due to other allergen Essential hypertension, benign Type II or unspecified type diabetes mellitus without mention of complication, uncontrolled PAST SURGICAL HISTORY Procedure Laterality Date CATARACT EXTRACTION HX Right 10/26/2017 EGD W/O 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 atorvastatin (LIPITOR) 40 mg tablet Take 1 tablet by mouth daily at bedtime. For cholesterol. metOLazone (ZAROXOLYN) 5 mg tablet Take 1 tablet by mouth once daily. insulin lispro (HUMALOG KWIKPEN INSULIN) 100 unit/mL INJECT 25 UNITS SUBCUTANEOUSLY THREE TIMES DAILY WITH MEALS DIRECTED dapagliflozin propanediol (FARXIGA) 10 mg tablet Take 1 tablet by mouth daily with breakfast. clotrimazole-betameth asone (LOTRISONE) cream Apply to affected area two times a day. furosemide (LASIX) 40 mg tablet Take 2 tablets by mouth once daily. FLUoxetine (PROZAC) 10 mg capsule Take 1 capsule by mouth once daily. carvedilol (COREG) 12.5 mg tablet Take 1 tablet by mouth two times a day. valsartan (DIOVAN) 160 mg tablet Take 1 tablet by mouth once daily. blood sugar diagnostic (BLOOD GLUCOSE TEST) test strip Alvina test strips. Test blood sugars once daily as directed. Dx: E11.9. Insulin: Yes Insulin Syringe-Needle U-100 1 mL 29 gauge x 1/2" 1 Each once daily. USE ONE SYRINGE FOR EACH INSULIN DOSE/ 1 PER DAY insulin needles, DISPOSABLE, (PEN NEEDLE) 31 (more content not included)... Normal [facility] 08-25-2024 CNPN Telephone ([facility]AMPWS) ROSA MYERS ([id number]) 1950 F Date Time Provider Department 08/25/24 AMADO JAMES [facility] During your visit today, we recorded the following information about you: Vicki Sawant LPN 08/25/2024 1:06 PM Signed Bailey WONG calling Pt. discharged with DX hypoglycemia. POC is see her 2 x 1 week an 1 day for 2 weeks and reassess. will you follow? Amado James MD 08/25/2024 2:02 PM Signed Noted; yes, I will follow MD Santos Nava Kathryn, MA 08/25/2024 2:40 PM Signed Detailed message of below left on Joseph's identified and confidential VM. Advised to call office if any questions. Mariza Graham MA Allergies As of Date: 08/25/2024 Noted Allergy Reaction DIANA INHIBITORS 07/17/2005 NEOMYCIN 07/17/2005 Date Reviewed: 07/11/2024 Reviewed by: Yaz Christy MA - Fully Assessed Prescriptions as of 08/25/2024 - insulin glargine (LANTUS SOLOSTAR U-100 INSULIN) 100 unit/mL (3 mL) Inject 60 Units subcutaneously once daily. - atorvastatin (LIPITOR) 40 mg tablet Take 1 tablet by mouth daily at bedtime. For cholesterol. - metOLazone (ZAROXOLYN) 5 mg tablet Take 1 tablet by mouth once daily. - insulin lispro (HUMALOG KWIKPEN INSULIN) 100 unit/mL INJECT 25 UNITS SUBCUTANEOUSLY THREE TIMES DAILY WITH MEALS DIRECTED - dapagliflozin propanediol (FARXIGA) 10 mg tablet Take 1 tablet by mouth daily with breakfast. - clotrimazole-betameth asone (LOTRISONE) cream Apply to affected area two times a day. - furosemide (LASIX) 40 mg tablet Take 2 tablets by mouth once daily. - FLUoxetine (PROZAC) 10 mg capsule Take 1 capsule by mouth once daily. - carvedilol (COREG) 12.5 mg tablet Take 1 tablet by mouth two times a day. - valsartan (DIOVAN) 160 mg tablet Take 1 tablet by mouth once daily. - blood sugar diagnostic (BLOOD GLUCOSE TEST) test strip Alvina test strips. Test blood sugars once daily as directed. Dx: E11.9. Insulin: Yes - Insulin Syringe-Needle U-100 1 mL 29 gauge x 1/2" 1 Each once daily. USE ONE SYRINGE FOR EACH INSULIN DOSE/ 1 PER DAY - insulin needles, DISPOSABLE, (PEN NEEDLE) 31 gauge x 5/16" Use 4 times daily to inject insulin [...] capsule by mouth once daily. - Insulin Center Point, Disposable, (RELION PEN NEEDLES) 32 x 5/32 " ndle Use as directed with insulin pen. [...] once daily. 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] 10/15/2023 Heart failure, unspecified (HCC) [I50.9] 04/15/2023 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*04/15/2023 Encounter Status:Closed by MARIZA GRAHAM on 08/25/24 [facility] 08-22-2024 [facility] Telephone ([facility]) ROSA MYERS ([id number]) 1950 F Date Time Provider Department 08/22/24 AMADO JAMES [facility] During your visit today, we recorded the following information about you: Hyacinth Greer LPN 08/22/2024 9:39 AM Signed Vinay with [facility] is calling to report that pt is currently in [facility] for hypoglycemia. Pt may get discharged today or tomorrow and possibly with 2L of O2. Pt has orders for long-term, PT, OT, and SW. Vinay is asking for VO from provider that provider will follow pt while in . IZABEL Amaral Jesse, APRN.[facility] 08/22/2024 2:26 PM Signed Please let Vinay know that Dr. James is out of the office. His team will follow home health care orders as recommended. Okay to proceed. Maciel Busby APRN.Chuyita Mcintosh LPN 08/22/2024 2:28 PM Signed Left detailed message on identifiable voicemail. Allergies As of Date: 08/22/2024 Noted Allergy Reaction DIANA INHIBITORS 07/17/2005 NEOMYCIN 07/17/2005 Date Reviewed: 07/11/2024 Reviewed by: Yaz Christy MA - Fully Assessed Reason for Visit: verbal orders [Other] Prescriptions as of 08/22/2024 - insulin glargine (LANTUS SOLOSTAR U-100 INSULIN) 100 unit/mL (3 mL) Inject 60 Units subcutaneously once daily. - atorvastatin (LIPITOR) 40 mg tablet Take 1 tablet by mouth daily at bedtime. For cholesterol. - metOLazone (ZAROXOLYN) 5 mg tablet Take 1 tablet by mouth once daily. - insulin lispro (HUMALOG KWIKPEN INSULIN) 100 unit/mL INJECT 25 UNITS SUBCUTANEOUSLY THREE TIMES DAILY WITH MEALS DIRECTED - dapagliflozin propanediol (FARXIGA) 10 mg tablet Take 1 tablet by mouth daily with breakfast. - clotrimazole-betameth asone (LOTRISONE) cream Apply to affected area two times a day. - furosemide (LASIX) 40 mg tablet Take 2 tablets by mouth once daily. - FLUoxetine (PROZAC) 10 mg capsule Take 1 capsule by mouth once daily. - carvedilol (COREG) 12.5 mg tablet Take 1 tablet by mouth two times a day. - valsartan (DIOVAN) 160 mg tablet Take 1 tablet by mouth once daily. - blood sugar diagnostic (BLOOD GLUCOSE TEST) test strip Alvina test strips. Test blood sugars once daily as directed. Dx: E11.9. Insulin: Yes - Insulin Syringe-Needle U-100 1 mL 29 gauge x 1/2" 1 Each once daily. USE ONE SYRINGE FOR EACH INSULIN DOSE/ 1 PER DAY - insulin needles, DISPOSABLE, (PEN NEEDLE) 31 gauge x 5/16" Use 4 times daily to inject insulin - blood sugar diagnostic (BLOOD GLUCOSE TEST) test strip Test blood sugar(s) 3 times daily. Dx: 250.02. Insulin: Yes - Blood-Glucose Meter misc 1 Each once daily. - Blood Sugar Diagnostic, um (ACCU-CHEK COMPACT TEST) strp Test blood sugar(s) 3 times daily. Dx:E11.9 . Insulin: Yes - loratadine (CLARITIN) 10 mg tablet Take 1 tablet by mouth once daily. - Cholecalciferol, Vitamin D3, 1,000 unit cap Take 1 capsule by mouth once daily. - Insulin Center Point, Disposable, (RELION PEN NEEDLES) 32 x 5/32 " ndle Use as directed with insulin pen. [...] once daily. 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 Patient was in [facility]. Please advise Amado James MD 08/18/2024 4:39 PM Signed I will follow and sign orders as requested MD Mackenzie Nava Beth, LPN 08/18/2024 4:43 PM Signed Phoned [employer] order line and left detailed message with notes below from Dr James on voicemail. Allergies As of Date: 08/18/2024 Noted Allergy Reaction DIANA INHIBITORS 07/17/2005 NEOMYCIN 07/17/2005 Date Reviewed: 07/11/2024 Reviewed by: Yaz Christy MA - Fully Assessed Reason for Visit: home health calling [Other] Prescriptions as of 08/18/2024 - insulin glargine (LANTUS SOLOSTAR U-100 INSULIN) 100 unit/mL (3 mL) Inject 60 Units subcutaneously once daily. - atorvastatin (LIPITOR) 40 mg tablet Take 1 tablet by mouth daily at bedtime. For cholesterol. - metOLazone (ZAROXOLYN) 5 mg tablet Take 1 tablet by mouth once daily. - insulin lispro (HUMALOG KWIKPEN INSULIN) 100 unit/mL INJECT 25 UNITS SUBCUTANEOUSLY THREE TIMES DAILY WITH MEALS DIRECTED - dapagliflozin propanediol (FARXIGA) 10 mg tablet Take 1 tablet by mouth daily with breakfast. - clotrimazole-betameth asone (LOTRISONE) cream Apply to affected area two times a day. - furosemide (LASIX) 40 mg tablet Take 2 tablets by mouth once daily. - FLUoxetine (PROZAC) 10 mg capsule Take 1 capsule by mouth once daily. - carvedilol (COREG) 12.5 mg tablet Take 1 tablet by mouth two times a day. - valsartan (DIOVAN) 160 mg tablet Take 1 tablet by mouth once daily. - blood sugar diagnostic (BLOOD GLUCOSE TEST) test strip Alvina test strips. Test blood sugars once daily as directed. Dx: E11.9. Insulin: Yes - Insulin Syringe-Needle U-100 1 mL 29 gauge x 1/2" 1 Each once daily. USE ONE SYRINGE FOR EACH INSULIN DOSE/ 1 PER DAY - insulin needles, DISPOSABLE, (PEN NEEDLE) 31 gauge x 5/16" Use 4 times daily to inject insulin [...] capsule by mouth once daily. - Insulin Center Point, Disposable, (RELION PEN NEEDLES) 32 x 5/32 " ndle Use as directed with insulin pen. [...] once daily. 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 There are no alternatives coming up but she states most likely Lantus. . New script needs sent to [facility] for pt. Amado James MD 07/13/2024 4:09 PM Signed Ok for Lantus as ordered Amado James MD Allergies As of Date: 07/13/2024 Noted Allergy Reaction DIANA INHIBITORS 07/17/2005 NEOMYCIN 07/17/2005 Date Reviewed: 07/11/2024 Reviewed by: Yaz Christy MA - Fully Assessed Reason for Visit: Medication Problem [65] Primary Visit Diagnosis:Type 2 diabetes mellitus with chronic kidney disease, with long-term current use of insulin, unspecified CKD stage ([facility]) [E11.22, Z79.4] Order(s):insulin glargine (LANTUS SOLOSTAR U-100 INSULIN) 100 unit/mL (3 mL)Inject 60 Units subcutaneously once daily.Disp: 30 mLRfl: 5 Prescriptions as of 07/13/2024 - insulin glargine (LANTUS SOLOSTAR U-100 INSULIN) 100 unit/mL (3 mL) Inject 60 Units subcutaneously once daily. - atorvastatin (LIPITOR) 40 mg tablet Take 1 tablet by mouth daily at bedtime. For cholesterol. - metOLazone (ZAROXOLYN) 5 mg tablet Take 1 tablet by mouth once daily. - insulin lispro (HUMALOG KWIKPEN INSULIN) 100 unit/mL INJECT 25 UNITS SUBCUTANEOUSLY THREE TIMES DAILY WITH MEALS DIRECTED - dapagliflozin propanediol (FARXIGA) 10 mg tablet Take 1 tablet by mouth daily with breakfast. - clotrimazole-betameth asone (LOTRISONE) cream Apply to affected area two times a day. - furosemide (LASIX) 40 mg tablet Take 2 tablets by mouth once daily. - FLUoxetine (PROZAC) 10 mg capsule Take 1 capsule by mouth once daily. - carvedilol (COREG) 12.5 mg tablet Take 1 tablet by mouth two times a day. - valsartan (DIOVAN) 160 mg tablet Take 1 tablet by mouth once daily. - blood sugar diagnostic (BLOOD GLUCOSE TEST) test strip Alvina test strips. Test blood sugars once daily as directed. Dx: E11.9. Insulin: Yes - Insulin Syringe-Needle U-100 1 mL 29 gauge x 1/2" 1 Each once daily. USE ONE SYRINGE FOR EACH INSULIN DOSE/ 1 PER DAY - insulin needles, DISPOSABLE, (PEN NEEDLE) 31 gauge x 5/16" Use 4 times daily to inject insulin [...] capsule by mouth once daily. - Insulin Center Point, Disposable, (RELION PEN NEEDLES) 32 x 5/32 " ndle Use as directed with insulin pen. [...] once daily. Problem List As Of Date 07/13/2024 Noted Resolved BENIGN HYPERTENSION [I10] 07/17/2005 Hyperlipidemia [...] kidney disease, stage 4 (severe) (HCC) *04/15/2023 correction current use of insulin (HCC) [Z79.4] 10/15/2023 Heart failure, unspecified (HCC) [I50.9] 04/15/2023 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*04/15/2023 Prescriptions ordered this encounter Disp Refills Start End LANTUS SOLOSTAR U-100 INSULIN 100 UN* 30 mL 5 07/13/2024 Cmt: Generic or brand: dispense product preferred by patient/insurance unless DEBO flag is selected. Route: SUBCUTANEOUS Sig: Inject 60 Units subcutaneously once daily. Medications Discontinued During This Encounter Prescriptions - insulin detemir U-100 (LEVEMIR U-100 INSULIN) 100 unit/mL injection (Discontinued) Inject 70 Units subcutaneously every morning. - insulin detemir U-100 (LEVEMIR) 100 unit/mL (3 mL) injection pen (Discontinued) Inject 65 Units subcutaneously daily with breakfast. Pt states taking 65 units Encounter Status:Closed by ASTON FELDER on 07/13/24 Normal [facility]OVon 07-11-2024 CNOV Office Visit ([facility] ) ROSA MYERS ([id number]) 1950 F Date Time Provider Department 07/11/24 4:00 PM AMADO JAMES [facility] During your visit today, we recorded the following information about you: Pulse Respiration Blood pressure Weight 76/minute 20/minute 136/80 124.2 kg Amado James MD 07/11/2024 5:18 PM Signed Rosa Myers is a 74 year old female here for a Medicare wellness visit. Mini-Cog test completed at visit in March. Medicare Health Risk Assessment General Health Fair Exercise: Minutes/Day 0 min Exercise: Days/Week 0 days Alcohol: Daily Use Never Alcohol: Drinks/Day Patient does not drink Alcohol: 6 or more drinks Never Feel off balance No (using a cane but doesn't feel off balance) Concerns: Teeth/Dentures Yes (Has two that are broken (2 years), but will not do anything with them.) Concerns: Sexual function No Troubled by feelings None of the above Frequency: Eating healthy diet More than half the days ADLs requiring help Grocery shopping; Cooking; Walking; Handling finances; Driving Safety precautions in home/vehicle No (Admits to not wearing seatbelt) Smoke, vape, chews tobacco No Difficulty hearing No Difficulty seeing Yes Current Providers Specialists: I have reviewed specialist-related care of the patient in the medical record. Current care team: Patient Care Team: Amado James MD as PCP - General Dr. Stallings or FULL STACK DEVELOPER Provider - [facility]/Cardiology. Dr. Erwin - Podiatry/Wound Center. Dr. Peters - Eye Doctor - has not seen in quite some time. Medical/Family history review Reviewed and updated problem list, medical/surgical/fami ly/social history, medications, and allergies. Opioid use review Opioid Medications (last 90 days) No data to display Anxiety/Depression screening Recommendation: no further intervention at this time and continuing current treatment plan Cognitive screening Mini Cog Score: 5 Cognitive screening reviewed and No further action needed (score 3-5). Functional Observation Was the patient's Timed Up AND Go test unsteady or >= 12 seconds? No, but very slow to ambulate. Advance Care Planning Patient did not wish or was not able to name a surrogate decision maker or provide an advance care plan Physical Exam Constitutional: Appearance: She is obese. Cardiovascular: Rate and Rhythm: Normal rate and regular rhythm. Pulses: Normal pulses. Heart sounds: Normal heart sounds. No murmur heard. Pulmonary: Effort: Pulmonary effort is normal. No respiratory distress. Breath sounds: Normal breath sounds. No wheezing, rhonchi or rales. Comments: Gets short of breath easily. Musculoskeletal: General: Tenderness present. Right lower leg: Edema present. Left lower leg: Edema present. Comments: Right knee examined Skin: Comments: Scab noted on tip of pt's nose Neurological: General: No focal deficit present. Mental Status: She is alert. Measurements BP 138/82 (BP Site: Left Arm, BP Position: Sitting, BP Cuff Size: Regular Adult) Pulse 76 Resp 20 Wt 124.2 kg (273 lb 13 oz) SpO2 99% Vision Screening: Declines visual acuity screen unable to complete due to not being able to stand long distance. Assessment/Plan Medicare annual wellness visit, subsequent (Z00.00) - Counseled on healthy diet and regular exercise - Fall avoidance information provided - Personalized prevention plan provided - Discussed need for and benefit of weight loss. BMI 44.87 kg/(m2) Amado James MD Chief Complaint Follow up HPI Rosa Myers is a 74 year old female who presents here today for follow up, in addition to Medicare Wellness. GI/Uro - Denies any stomach or bowel issues. Does urinate frequently, every 2-4 hours day/night. HTN - Denies checking BP at home. No chest pain or dizziness. Does get sob with exertion. Does follow with Cardiology at [facility], has appt tomorrow. On current regimen of Diovan 160 mg once daily and Coreg 12.5 mg bid. Lipid/CAD - Taking Plavix 75 mg once daily, Lipitor 40 mg once daily and ASA 81 mg daily. Follows with [facility]. DM - Checks sugars at home once daily with FBS of 90 this morning. Generally FBS is 130-160. Has been having increased episodes of lows (5) over the past month, seems to correlate with increased use of abx due to her wounds. Is following with Dr. Erwin at [facility] for wound on b/l feet. Was seen last , wearing compression wraps to hold wound dressings in place. Pt states they are thinking about doing Hyperbaric Treatment. Currently being treated with Doxycyline 100 mg bid for 3 weeks, has two more days of this. Completed Cipro 500 mg once daily for two weeks. On current regimen of Humalog 25 units TID with meals, Levemir 60-65 units and Farxiga 10 mg once daily. E (more content not included)... Normal [facility] ROSA MY[facility] ([id number]) 1950 F Date Time Provider Department 06/16/24 AMADO JAMES [facility] During your visit today, we recorded the following information about you: Aston Felder RN 06/16/2024 11:39 AM Vesna Gomez [facility] called in and wanted Pts last OV note faxed over. She states the only diagnosis they have is foot ulcer, and she wanted more diagnoses to put down. Faxed last OV note to fax # [phone]. Allergies As of Date: 06/16/2024 Noted Allergy [...] tablet by mouth daily with breakfast. - clotrimazole-betameth asone (LOTRISONE) cream Apply to affected area two [...] Syringe-Needle U-100 1 mL 29 gauge x 1/2" 1 Each once daily. USE ONE SYRINGE FOR EACH INSULIN DOSE/ 1 PER DAY - insulin needles, DISPOSABLE, (PEN NEEDLE) 31 gauge x 5/16" Use 4 times daily to inject insulin [...] capsule by mouth once daily. - Insulin Center Point, Disposable, (RELION PEN NEEDLES) 32 x 5/32 " ndle Use as directed with insulin pen. [...] kidney disease, stage 4 (severe) (HCC) *04/15/2023 correction current use of insulin (HCC) [Z79.4] 10/15/2023 Heart failure, unspecified (HCC) [I50.9] 04/15/2023 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*04/15/2023 Encounter Status:Closed by ASTON FELDER on 06/16/24 [facility] 06-02-2024 [facility] ([id number]) 1950 F Date Time Provider Department 06/02/24 AMADO JAMES [facility] During your visit today, we recorded the following information about you: Aga Castro RN 06/02/2024 2:35 PM Signed Joseph with [facility] calling and requesting most recent office visit for patient be faxed to them at [phone] for continuity of care for Home Health Nursing services. Faxed as requested. Aga Castro RN Allergies As of Date: 06/02/2024 Noted Allergy Reaction DIANA INHIBITORS 07/17/2005 NEOMYCIN 07/17/2005 Date Reviewed: 05/06/2024 Reviewed by: Mariza Graham MA - Fully Assessed Reason for Visit: Fax Request [Other] Prescriptions as of 06/02/2024 - dapagliflozin propanediol (FARXIGA) 10 mg tablet Take 1 tablet by mouth daily with breakfast. - clotrimazole-betameth asone (LOTRISONE) cream Apply to affected area two [...] Syringe-Needle U-100 1 mL 29 gauge x 1/2" 1 Each once daily. USE ONE SYRINGE FOR EACH INSULIN DOSE/ 1 PER DAY - insulin needles, DISPOSABLE, (PEN NEEDLE) 31 gauge x 5/16" Use 4 times daily to inject insulin [...] capsule by mouth once daily. - Insulin Center Point, Disposable, (RELION PEN NEEDLES) 32 x 5/32 " ndle Use as directed with insulin pen. 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] 10/15/2023 Heart failure, unspecified (HCC) [I50.9] 04/15/2023 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*04/15/2023 Encounter Status:Closed by AGA CASTRO on 06/02/24 [facility] CNOVon 05-06-2024 CNOV Office Visit (FAMPWS ) ROSA MYERS ([id number]) 1950 F Date Time Provider Department 05/06/24 8:40 AM AMADO JAMES During your visit today, we recorded the following information about you: Pulse Respiration Blood pressure Weight 68/minute 16/minute 97/64 119 kg Amado James MD 05/06/2024 11:42 AM Signed Chief Complaint [...] CATARACT EXTRACTION HX; Right 02/24/2022: EGD W/O [facility] SPEC VARICIES INJ; N/A [...] 1 tablet by mouth daily with breakfast. clotrimazole-betameth asone (LOTRISONE) cream Apply to affected area two [...] Syringe-Needle U-100 1 mL 29 gauge x 1/2" 1 Each once daily. USE ONE SYRINGE FOR EACH INSULIN DOSE/ 1 PER DAY insulin needles, DISPOSABLE, (PEN NEEDLE) 31 gauge x 5/16" Use 4 times daily to inject insulin [...] 1 capsule by mouth once daily. Insulin Center Point, Disposable, (RELION PEN NEEDLES) 32 x 5/32 " ndle Use as directed with insulin pen. [...] done Shingrix (more content not included)... Normal [facility]NPNon [facility]20[facility] ROSA MYERS ([id number]) 1950 F Date Time Provider Department 04/18/24 AMADO JAMES [facility] During your visit today, we recorded the following information about you: Amado James MD 04/18/2024 11:37 AM Signed Please notify [...] and went over results, notes from Dr James with understanding. Reminder of appt date and [...] four times daily for 10 days. - clotrimazole-betameth asone (LOTRISONE) cream Apply to affected area two [...] Syringe-Needle U-100 1 mL 29 gauge x 1/2" 1 Each once daily. USE ONE SYRINGE FOR EACH INSULIN DOSE/ 1 PER DAY - insulin needles, DISPOSABLE, (PEN NEEDLE) 31 gauge x 5/16" Use 4 times daily to inject insulin [...] capsule by mouth once daily. - Insulin Center Point, Disposable, (RELION PEN NEEDLES) 32 x 5/32 " ndle Use as directed with insulin pen. 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 LABCLIA [id number] [place] [address] [place] Hematocrit (Bld) [Volume fraction] 36.0 % Normal 36.0-46.0 [facility] Comment on above: Order Comment: Speci men Type: BLOOD SPECIMENOrdering Facility: [facility] Address: [address] [place] [address] Performed By: #### 5 8410-2 ####[facility] LABCLIA [id number] [place] [address] [place] Hemoglobin (Bld) [Mass/Vol] 10.9 g/dL Low 11.5-15.5 [facility] Comment on above: Order Comment: Speci men Type: BLOOD SPECIMENOrdering Facility: [facility] Address: [address] [place] [address] Performed By: #### 5 8410-2 ####[facility] LABCLIA [id number] [place] [address] [place] MCH (RBC) [Entitic mass] 26.8 pg Normal 26.0-34.0 [facility] Comment on above: Order Comment: Speci men Type: BLOOD SPECIMENOrdering Facility: [facility] Address: [address] [place] [address] Performed By: #### 5 8410-2 ####[facility] LABCLIA [id number] [place] [address] [place] MCHC (RBC) [Mass/Vol] 30.3 g/dL Low 30.5-36.0 [facility] Comment on above: Order Comment: Speci men Type: BLOOD SPECIMENOrdering Facility: [facility] Address: [address] [place] [address] Performed By: #### 5 8410-2 ####[facility] LABCLIA [id number] [place] [address] [place] MCV (RBC) [Entitic vol] 88.7 fL Normal 80.0-100.0 C [facility] Comment on above: Order Comment: Speci men Type: BLOOD SPECIMENOrdering Facility: [facility] Address: [address] [place] [address] Performed By: #### 5 8410-2 ####[facility] [id number] [place] [address] [place] Nucleated RBC (Bld) [#/Vol] 10*3/uL Normal <0.01 [facility] Comment on above: Order Comment: Speci men Type: BLOOD SPECIMENOrdering Facility: [facility] Address: [address] [place] [address] Performed By: #### 5 8410-2 ####[facility] [id number] [place] [address] [place] Platelet mean volume (Bld) [Entitic vol] 11.9 fL Normal 9.0-12.7 [facility] Comment on above: Order Comment: Speci men Type: BLOOD SPECIMENOrdering Facility: [facility] Address: [address] [place] [address] Performed By: #### 5 8410-2 ####[facility] [id number] [place] [address] [place] Platelets (Bld) [#/Vol] 200 10*3/uL Normal 150-400 [facility] Comment on above: Order Comment: Speci men Type: BLOOD SPECIMENOrdering Facility: [facility] Address: [address] [place] [address] Performed By: #### 5 8410-2 ####[facility] LABIA [id number] [place] [address] [place] RBC (Bld) [#/Vol] 4.06 10*6/uL Normal 3.90-5.20 [facility] Comment on above: Order Comment: Speci men Type: BLOOD SPECIMENOrdering Facility: [facility] Address: [address] [place] [address] Performed By: #### 5 8410-2 ####[facility] LABCLIA [id number] [address] [address] [place] WBC (Bld) [#/Vol] 8.10 10*3/uL Normal 3.70-11.00 [facility] Comment on above: Order Comment: Speci men Type: BLOOD SPECIMENOrdering Facility: [facility] Address: [address] [place] [address] Performed By: #### 5 8410-2 ####[facility] LABCLIA [id number] [place] [address] [place] Comprehensive metabolic 2000 panelon 04-15-2024 Albumin [Mass/Vol] 4.1 g/dL Normal 3.9-4.9 [facility] Comment on above: Order Comment: Speci men Type: BLOOD SPECIMENOrdering Facility: [facility] Address: [address] [place] [address] Performed By: #### 2 4323-8, 99305-0 ####[facility] LABCLIA [id number] [place] [address] [place] ALP [Catalytic activity/Vol] 102 U/L Normal 34-123 [facility] Comment on above: Order Comment: Speci men Type: BLOOD SPECIMENOrdering Facility: [facility] Address: [address] [place] [address] Performed By: #### 2 4323-8, 65660-0 ####[facility] LABCLIA [id number] [place] [address] [place] ALT [Catalytic activity/Vol] 17 U/L Normal 7-38 [facility] Comment on above: Order Comment: Speci men Type: BLOOD SPECIMENOrdering Facility: [facility] Address: [address] [place] [id number] Performed By: #### 2 4323-8, 14776-3 ####[facility] LABCLIA [id number] [place] [address] [place] Anion gap [Moles/Vol] 15 mmol/L Normal 8-15 [facility] Comment on above: Order Comment: Speci men Type: BLOOD SPECIMENOrdering Facility: [facility] Address: [address] [place] [address] Performed By: #### 2 4323-8, 78189-5 ####[facility] LABCLIA [id number] [place] [address] [place] AST [Catalytic activity/Vol] 17 U/L Normal 13-35 [facility] Comment on above: Order Comment: Speci men Type: BLOOD SPECIMENOrdering Facility: [facility] Address: [address] [place] [address] Performed By: #### 2 4323-8, 37335-8 ####[facility] LABCLIA [id number] [place] [address] [place] Bilirubin [Mass/Vol] 0.6 mg/dL Normal 0.2-1.3 [facility] Comment on above: Order Comment: Speci men Type: BLOOD SPECIMENOrdering Facility: [facility] Address: [address] [place] [address] Performed By: #### 2 4323-8, 11397-2 ####[facility] LABCLIA [id number] [place] [address] [place] Calcium [Mass/Vol] 9.0 mg/dL Normal 8.5-10.2 [facility] Comment on above: Order Comment: Speci men Type: BLOOD SPECIMENOrdering Facility: [facility] Address: [address] [place], [place] [address] Performed By: #### 2 4323-8, 31316-4 ####[facility] LABCLIA [id number] [place] [address] [place] Chloride [Moles/Vol] 104 mmol/L Normal 98-107 [facility] Comment on above: Order Comment: Speci men Type: BLOOD SPECIMENOrdering Facility: [facility] Address: [address] [place] [address] Performed By: #### 2 4323-8, 54839-7 ####[facility] LABIA [id number] [place] [address] [place] CO2 [Moles/Vol] 22 mmol/L Normal 22-30 [facility] Comment on above: Order Comment: Speci men Type: BLOOD SPECIMENOrdering Facility: [facility] Address: [address] [place] [address] Performed By: #### 2 4323-8, 93279-5 ####[facility] LABIA [id number] [place] [address] [place] Creatinine [Mass/Vol] 1.66 mg/dL High 0.58-0.96 [facility] Comment on above: Order Comment: Speci men Type: BLOOD SPECIMENOrdering Facility: [facility] Address: [address] [place] [address] Performed By: #### 2 4323-8, 34455-4 ####[facility] [id number] [place] [address] [place] Creatinine and Glomerular filtration rate.predicted panel (S/P/Bld) 32 mL/min/1.73m??? Low >=60 [facility] Comment on above: Order Comment: Speci men Type: BLOOD SPECIMENOrdering Facility: [facility] Address: [address] [place] [address] Result Comment: Kathrine mated Glomerular Filtration Rate [...] reflect actual GFR. Performed By: #### 2 4323-8, 18776-7 ####[facility] LABCLIA [id number] [address] [address] [place] Glucose [Mass/Vol] 228 mg/dL High 74-99 [facility] Comment on above: Order Comment: Maxim davies Type: BLOOD SPECIMENOrdering Facility: [facility] Address: [address] [place] [address] Result Comment: The [place] Diabetes Association (ADA) provides guidance for cutoff [...] Standards of Medical Care in Diabetes 2016, [place] Diabetes Association. Diabetes Care. 2016.39(Suppl 1). Performed By: #### 2 4323-8, ####[facility] LABCLIA [id number] [facility] [place] [id number] [place] Potassium [Moles/Vol] 4.8 mmol/L Normal 3.7-5.1 [facility] Comment on above: Order Comment: Maxim davies Type: BLOOD SPECIMENOrdering Facility: [facility] Address: [address] [place] [address] Performed By: #### 2 4323-8, ####[facility] LABCLIA [id number] [facility] [address] [address] [place] Protein [Mass/Vol] 7.2 g/dL Normal 6.3-8.0 [facility] Comment on above: Order Comment: Speci men Type: BLOOD SPECIMENOrdering Facility: [facility] Address: [address] [place] [address] Performed By: #### 2 4323-8, 66842-0 ####[facility] LABCLIA [id number] [address] [address] [place] Sodium [Moles/Vol] 141 mmol/L Normal 136-144 [facility] Comment on above: Order Comment: Speci men Type: BLOOD SPECIMENOrdering Facility: [facility] Address: [address] [place] [address] Performed By: #### 2 4323-8, 41946-4 ####[facility] LABCLIA [id number] [place] [address] [place] Urea nitrogen [Mass/Vol] 37 mg/dL High 7-21 [facility] Comment on above: Order Comment: Speci men Type: BLOOD SPECIMENOrdering Facility: [facility] Address: [address] [place] [address] Performed By: #### 2 4323-8, 72481-7 ####[facility] LABCLIA [id number] [place] [address] [place] HbA1c (Bld)on 04-15-2024 Average glucose Estimated from glycated hemoglobin (Bld) [Mass/Vol] 180 mg/dL Normal [facility] Comment on above: Order Comment: Speci men Type: BLOOD SPECIMENOrdering Facility: [facility] Address: [address] [place] [address] Result Comment: eAG: (Estimated average glucose) is a calculated value from HgbA1c and is life assurance representative of the average blood glucose level in the last 2-3 month period. Performed By: #### 5 5454-3 ####[facility] LABCLIA [id number] [place] [address] [place] HbA1c (Bld) [Mass fraction] 7.9 % High 4.3-5.6 [facility] Comment on above: Order Comment: Trevori men Type: BLOOD SPECIMENOrdering Facility: [facility] Address: [address] [place] [address] Result Comment: [place] Diabetes Association guidelines indicate that patients with HgbA1c in the range 5.7-6.4% are at increased risk for development of diabetes, and intervention by lifestyle modification may be beneficial. HgbA1c greater or equal to 6.5% is considered diagnostic of diabetes. Performed By: #### 5 5454-3 ####[facility] LABCLIA [id number] [place] [address] [place] Lipid 1996 panelon 4 Cholesterol [Mass/Vol] 131 mg/dL Normal <200 [facility] Comment on above: Order Comment: Maxim men Type: BLOOD SPECIMENOrdering Facility: [facility] Address: [address] [place] [address] Result Comment: <200 mg/dL, Desirable 200-239 mg/dL, Borderline high >239 mg/dL, High Performed By: #### 2 4323-8, 86727-0 ####[facility] LABCLIA [id number] [address] [place] Cholesterol in HDL [Mass/Vol] 34 mg/dL Low >39 [facility] Comment on above: Order Comment: Speci men Type: BLOOD SPECIMENOrdering Facility: [facility] Address: [address] [place] [address] Result Comment: 40-5 9 mg/dL, Acceptable >59 mg/dL, High: Negative risk factor for coronary heart disease <40 mg/dL, Low: Positive risk factor for coronary heart disease Performed By: #### 2 4323-8, 80683-5 ####[facility] LABCLIA [id number] [address] [place] Cholesterol in LDL [Mass/Vol] 68 mg/dL Normal <100 [facility] Comment on above: Order Comment: Speci men Type: BLOOD SPECIMENOrdering Facility: [facility] Address: [address] [place] [address] Result Comment: <100 mg/dL, Optimal 100-129 mg/dL, Near optimal/above optimal 130-159 mg/dL, Borderline high 160-189 mg/dL, High >189 mg/dL, Very high Secondary prevention optimal LDL Cholesterol levels are recommended to be < 70 mg/dL Performed By: #### 2 4323-8, 83532-3 ####[facility] LABCLIA [id number] [place] [address] [place] Cholesterol in LDL/Cholesterol in HDL [Mass ratio] 2.00 {ratio} Normal <2.54 [facility] Comment on above: Order Comment: Maxim men Type: BLOOD SPECIMENOrdering Facility: [facility] Address: [address] [place] [id number] Result Comment: Refe rence: 1. National Cholesterol Education Program ATP III Guideline At-A-Glance Quick Desk Reference: National Heart, Lung, and Blood [place]. National Institutes of Health. 2001: NIH Publication No. 01-3305. 2. An International Atherosclerosis Society position paper: global recommendations for the management of dyslipidemia: executive summary, Atherosclerosis. 2014: 232(2):410-413. Performed By: #### 2 4323-8, 71364-9 ####[facility] LABIA [id number] [place] [address] [place] Cholesterol in VLDL [Mass/Vol] 29 mg/dL Normal <30 [facility] Comment on above: Order Comment: Trevori men Type: BLOOD SPECIMENOrdering Facility: [facility] Address: [address] [place] [address] Performed By: #### 2 4323-8, 73340-1 ####[facility] LABCLIA [id number] [place] [address] [place] Cholesterol non HDL [Mass/Vol] 97 mg/dL Normal <130 [facility] Comment on above: Order Comment: Trevori men Type: BLOOD SPECIMENOrdering Facility: [facility] Address: [address] [place], [place] [id number] Result Comment: <130 mg/dL, Optimal 130-159 mg/dL, Near optimal/above optimal 160-189 mg/dL, Borderline high 190-219 mg/dL, High >219 mg/dL, Very high Secondary prevention optimal non HDL Cholesterol levels are recommended to be <100 mg/dL Performed By: #### 2 4323-8, 81925-9 ####[facility] LABCLIA [id number] [address] [place] Cholesterol.total/Antonia sterol in HDL [Mass ratio] 3.85 {ratio} Normal <5.10 [facility] Comment on above: Order Comment: Speci men Type: BLOOD SPECIMENOrdering Facility: [facility] Address: [address] [place] [address] Performed By: #### 2 4323-8, 12328-5 ####[facility] LABCLIA [id number] [address] STATES OF [facility] FASTING TIME 14 hrs Normal [facility] Comment on above: Order Comment: Speci men Type: BLOOD SPECIMENOrdering Facility: [facility] Address: [address] [place] [address] Performed By: #### 2 4323-8, 93026-5 ####[facility] LABCLIA [id number] [address] [place] Triglyceride [Mass/Vol] 146 mg/dL Normal <150 [facility] Comment on above: Order Comment: Speci men Type: BLOOD SPECIMENOrdering Facility: [facility] Address: [address] [place] [address] Result Comment: <150 mg/dL, Normal 150-199 mg/dL, Borderline high 200-499 mg/dL, High >499 mg/dL, Very high Performed By: #### 2 4323-8, 23961-0 ####[facility] LABCLIA [id number] [address] [place] CNOVon 04-10-2024 CNOV Office Visit (FAMPWS ) ROSA MYERS ([id number]) 1950 F Date Time Provider Department 04/10/24 6:00 PM AMADO JAMES [facility] During your visit today, we recorded the following information about you: Pulse Respiration Blood pressure Weight 74/minute 16/minute 140/80 120 kg Amado James MD 04/10/2024 7:02 PM Signed Chief Complaint [...] taking ASA 81 mg daily. Follows with [facility]; had recent echo showing no change [...] Syringe-Needle U-100 1 mL 29 gauge x 1/2" 1 Each once daily. USE ONE SYRINGE FOR EACH INSULIN DOSE/ 1 PER DAY insulin needles, DISPOSABLE, (PEN NEEDLE) 31 gauge x 5/16" Use 4 times daily to inject insulin [...] 1 capsule by mouth once daily. Insulin [place], Disposable, (RELION PEN NEEDLES) 32 x 5/32 " ndle Use a (more content not included)... [facility] ROSA MYERS ([id number]) 1950 F Date Time Provider Department 04/04/24 [facility] During your visit today, we recorded the following information about you: Maciel Busby APRN.CNP 04/04/2024 10:49 AM Signed STAMP Please reach out to patient for overdue appointment for chronic disease management with myself. If he/she is no longer following with Dr. James, please remove name from PCP field. Due for Medicare Wellness/Follow up, would need 40 minutes. Maciel Busby APRN.CNP Allergies As of Date: 04/04/2024 Noted Allergy Reaction DIANA INHIBITORS 07/17/2005 NEOMYCIN 07/17/2005 Date Reviewed: 04/15/2023 Reviewed by: Yaz Christy MA - Fully Assessed Reason for Visit: [...] Syringe-Needle U-100 1 mL 29 gauge x 1/2" 1 Each once daily. USE ONE SYRINGE FOR EACH INSULIN DOSE/ 1 PER DAY - insulin needles, DISPOSABLE, (PEN NEEDLE) 31 gauge x 5/16" Use 4 times daily to inject insulin [...] capsule by mouth once daily. - Insulin [place], Disposable, (RELION PEN NEEDLES) 32 x 5/32 " ndle Use as directed with insulin pen. [...] kidney disease, stage 4 (severe) (HCC) *04/15/2023 correction current use of insulin ([facility]) [Z79.4] 10/15/2023 Heart failure, unspecified ([facility]) [I50.9] 04/15/2023 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*04/15/2023 Encounter Status:Closed by CHA TAVERAS on 04/04/24 [facility] Basophil percentageOrdered B y: Carmela Funk on 06-25-2023 Chloride [Moles/Vol] 106 mmol/L 98-107 [facility] Glucose [Mass/Vol] 119 mg/dL 74-106 [facility] Comment on above: Fasting Glucose resu lt from 100 to 125 mg/dL suggests IMPAIRED HOMEOSTASIS per A.D.A. criteria. Potassium [Moles/Vol] 3.7 mmol/L 3.5-5.1 [facility] Sodium [Moles/Vol] 139 mmol/L 136-145 [facility] Laboratory - Chemistry and C hemistry - challengeOrdered By: Carmela Funk on 06-25-2023 CO2 [Moles/Vol] 29.0 mmol/L 21.0-32.0 [facility] Urea nitrogen/Creatinine [Mass ratio] 17.5 mg/mg 10-20 [facility] No Panel InformationOrdered By: Carmela Funk on 06-25-2023 Estimated GFR (MDRD) Amer 31 mL/min >60 [facility] Comment on above: GFR Calc Estimated GFR (MDRD) Non-Af Amer 26 mL/min >60 [facility] Comment on above: Non- GFR Calc Serum or plasma calcium kayleigh urement (mass/volume)Ordered By: Carmela Funk on 06-25-2023 Calcium [Mass/Vol] 9.0 mg/dL 8.5-10.1 [facility] Serum or plasma creatinine m easurement (mass/volume)Ordered By: Carmela Funk on 06-25-2023 Creatinine [Mass/Vol] 2.00 mg/dL 0.55-1.02 [facility] Comment on above: The validity of the calculated GFR & GFRAA in patients over 70 years has not been determined. Clinical correlation is essential. Serum or plasma urea nitroge n measurement (mass/volume)Ordered By: Carmela Funk on 06-25-2023 Urea nitrogen [Mass/Vol] 35 mg/dL 7-18 [facility] Thin prep Papanicolaou smear with manual screeningOrdered By: Carmela Funk on 06-25-2023 Thin prep Papanicolaou smear with manual screening 4 5-15 [facility] Absolute lymphocyte countOrd ered By: Carmela Funk on 06-17-2023 Lymphocytes Auto (Unsp spec) [#/Vol] 1.21 10*3/uL 0.83-4.51 [facility] Basophil percentageOrdered B y: Carmela Funk on 06-17-2023 Basophils/100 WBC (Bld) 1.1 % 0-1 [facility] Chloride [Moles/Vol] 106 mmol/L 98-107 [facility] Eosinophils/100 WBC (Bld) 1.8 % 0-5 [facility] Glucose [Mass/Vol] 108 mg/dL 74-106 [facility] Comment on above: Fasting Glucose resu lt from 100 to 125 mg/dL suggests IMPAIRED HOMEOSTASIS per A.D.A. criteria. Neutrophils (Bld) [#/Vol] 3.5 10*3/uL 2.0-7.7 [facility] Neutrophils/100 WBC (Bld) 63.6 % 47-70 [facility] Potassium [Moles/Vol] 4.2 mmol/L 3.5-5.1 [facility] Sodium [Moles/Vol] 140 mmol/L 136-145 [facility] WBC (Bld) [#/Vol] 5.5 10*3/uL 4.4-11.0 [facility] Blood erythrocytes count (nu mber/volume)Ordered By: Carmela Funk on 06-17-2023 RBC (Bld) [#/Vol] 3.70 10*6/uL 4.2-5.4 [facility] Blood hemoglobin measurement (mass/volume)Ordered By: Carmela Funk on 06-17-2023 Hemoglobin (Bld) [Mass/Vol] 9.7 g/dL 12.0-15.0 [facility] Blood lymphocytes/100 leukoc ytesOrdered By: Carmela Funk on 06-17-2023 Lymphocytes/100 WBC (Bld) 22.1 % 19-41 [facility] Blood monocytes/100 leukocyt esOrdered By: Carmela Funk on 06-17-2023 Monocytes/100 WBC (Bld) 11.2 % 0-10 [facility] Blood platelet mean volumeOr dered By: Carmela Funk on 06-17-2023 Platelet mean volume (Bld) [Entitic vol] 10.6 fL 6.2-12.0 [facility] Determination of erythrocyte mean corpuscular volume (MCV)Ordered By: Carmela Funk on 06-17-2023 MCV (RBC) [Entitic vol] 86.8 fL 81-99 [facility] Hematocrit Auto (Bld) [Volum e fraction]Ordered By: Carmela Funk on 06-17-2023 Hematocrit (Bld) [Volume fraction] 32.1 % 37-47 [facility] Laboratory - Chemistry and C hemistry - challengeOrdered By: Carmela Funk on 06-17-2023 CO2 [Moles/Vol] 29.0 mmol/L 21.0-32.0 [facility] Natriuretic peptide B (Bld) [Mass/Vol] 281.8 pg/mL 0-100 [facility] Urea nitrogen/Creatinine [Mass ratio] 14.5 mg/mg 10-20 [facility] Laboratory - Hematology and Cell countsOrdered By: Carmela Funk on 06-17-2023 Erythrocyte distribution width (RBC) [Entitic vol] 49.9 fL 35.1-43.9 [facility] Erythrocyte distribution width (RBC) [Ratio] 15.6 % 11.6-14.6 [facility] Immature granulocytes/100 WBC (Bld) 0.200 % 0.0-0.9 [facility] Comment on above: IG% - Immature Granu locytes (promyelocytes, myelocytes and metamyelocytes) > 1% indicates that a LEFT SHIFT is Present. MCH (RBC) [Entitic mass] 26.2 pg 27.0-32.0 [facility] Nucleated RBC/100 WBC (Bld) [Ratio] 0 % 0-5 [facility] MCHC Auto (RBC) [Mass/Vol]Or dered By: Carmela Funk on 06-17-2023 MCHC (RBC) [Mass/Vol] 30.2 g/dL 32-36 [facility] No Panel InformationOrdered By: Carmela Funk on 06-17-2023 Estimated GFR (MDRD) Amer 34 mL/min >60 [facility] Comment on above: GFR Calc Estimated GFR (MDRD) Non-Af Amer 28 mL/min >60 [facility] Comment on above: Non- GFR Calc Thyroid Stimulating Hormone (TSH) 4.15 uIU/mL 0.358-3.74 [facility] Platelets bldOrdered By: Maco Funk on 06-17-2023 Platelets (Bld) [#/Vol] 280 10*3/uL 150-450 [facility] Serum or plasma calcium kayleigh urement (mass/volume)Ordered By: Carmela Funk on 06-17-2023 Calcium [Mass/Vol] 9.0 mg/dL 8.5-10.1 [facility] Serum or plasma creatinine m easurement (mass/volume)Ordered By: Carmela Funk on 06-17-2023 Creatinine [Mass/Vol] 1.86 mg/dL 0.55-1.02 [facility] Comment on above: The validity of the calculated GFR & GFRAA in patients over 70 years has not been determined. Clinical correlation is essential. Serum or plasma urea nitroge n measurement (mass/volume)Ordered By: Carmela Funk on 06-17-2023 Urea nitrogen [Mass/Vol] 27 mg/dL 7-18 [facility] Thin prep Papanicolaou smear with manual screeningOrdered By: Carmela Funk on 06-17-2023 Thin prep Papanicolaou smear with manual screening 5 5-15 [facility] Absolute lymphocyte counton 06-03-2022 Lymphocytes Auto (Unsp spec) [#/Vol] 1.04 10*3/uL 0.83-4.51 [facility] Work Phone: Basophil percentageon 2021 Basophils/100 WBC (Bld) 0.8 % 0-1 [facility] Work Phone: Chloride [Moles/Vol] 108 mmol/L 98-107 [facility] Work Phone: Eosinophils/100 WBC (Bld) 1.1 % 0-5 [facility] Work Phone: Glucose [Mass/Vol] 217 mg/dL 74-106 [facility] Work Phone: Comment on above: Glucose result great er than or equal to 200 mg/dLsuggests DIABETES MELLITUS per A.D.A. criteria. Neutrophils (Bld) [#/Vol] 6.4 10*3/uL 2.0-7.7 [facility] Work Phone: Neutrophils/100 WBC (Bld) 78.2 % 47-70 [facility] Work Phone: Potassium [Moles/Vol] 5.3 mmol/L 3.5-5.1 [facility] Work Phone: Sodium [Moles/Vol] 136 mmol/L 136-145 [facility] Work Phone: WBC (Bld) [#/Vol] 8.2 10*3/uL 4.4-11.0 [facility] Work Phone: Blood erythrocytes count (nu mber/volume)on 06-03-2022 RBC (Bld) [#/Vol] 3.88 10*6/uL 4.2-5.4 [facility] Work Phone: Blood hemoglobin measurement (mass/volume)on 06-03-2022 Hemoglobin (Bld) [Mass/Vol] 9.7 g/dL 12.0-15.0 [facility] Work Phone: Blood lymphocytes/100 leukoc yteson 06-03-2022 Lymphocytes/100 WBC (Bld) 12.6 % 19-41 [facility] Work Phone: Blood monocytes/100 leukocyt eson 06-03-2022 Monocytes/100 WBC (Bld) 6.9 % 0-10 [facility] Work Phone: Blood platelet mean volumeon 06-03-2022 Platelet mean volume (Bld) [Entitic vol] 10.1 fL 6.2-12.0 [facility] Work Phone: Determination of erythrocyte mean corpuscular volume (MCV)on 06-03-2022 MCV (RBC) [Entitic vol] 81.7 fL 81-99 [facility] Work Phone: Hematocrit Auto (Bld) [Volum e fraction]on 06-03-2022 Hematocrit (Bld) [Volume fraction] 31.7 % 37-47 [facility] Work Phone: Laboratory - Chemistry and C hemistry - challengeon 06-03-2022 CO2 [Moles/Vol] 22.0 mmol/L 21.0-32.0 [facility] Work Phone: Urea nitrogen/Creatinine [Mass ratio] 19.4 mg/mg 10-20 [facility] Work Phone: Laboratory - Hematology and Cell countson 06-03-2022 Erythrocyte distribution width (RBC) [Entitic vol] 49.9 fL 35.1-43.9 [facility] Work Phone: [phone] Erythrocyte distribution width (RBC) [Ratio] 16.7 % 11.6-14.6 [facility] Work Phone: Immature granulocytes/100 WBC (Bld) 0.400 % 0.0-0.9 [facility] Work Phone: Comment on above: IG% - Immature Granu locytes (promyelocytes, myelocytes and metamyelocytes) > 1% indicates that a LEFT SHIFT is Present. MCH (RBC) [Entitic mass] 25.0 pg 27.0-32.0 [facility] Work Phone: Nucleated RBC/100 WBC (Bld) [Ratio] 0 % 0-5 [facility] Work Phone: [phone] MCHC Auto (RBC) [Mass/Vol]on 06-03-2022 MCHC (RBC) [Mass/Vol] 30.6 g/dL 32-36 [facility] Work Phone: No Panel Informationon 06-03 Estimated GFR (MDRD) Amer 26 mL/min >60 [facility] Work Phone: Comment on above: GFR Calc Estimated GFR (MDRD) Non-Af Amer 21 mL/min >60 [facility] Work Phone: Comment on above: Non- GFR Calc Platelets bldon 06-03-2022 Platelets (Bld) [#/Vol] 231 10*3/uL 150-450 [facility] Work Phone: Serum or plasma calcium kayleigh urement (mass/volume)on 06-03-2022 Calcium [Mass/Vol] 9.0 mg/dL 8.5-10.1 [facility] Work Phone: [phone] Serum or plasma creatinine m easurement (mass/volume)on 06-03-2022 Creatinine [Mass/Vol] 2.37 mg/dL 0.55-1.02 [facility] Work Phone: Comment on above: The validity of the calculated GFR & GFRAA in patients over 70 years has not been determined. Clinical correlation is essential. Serum or plasma urea nitroge n measurement (mass/volume)on 06-03-2022 Urea nitrogen [Mass/Vol] 46 mg/dL 7-18 [facility] Work Phone: Thin prep Papanicolaou smear with manual screeningon 06-03-2022 Thin prep Papanicolaou smear with manual screening 6 5-15 [facility] Work Phone: Basophil percentageon 2021 Chloride [Moles/Vol] 103 mmol/L 98-107 [facility] Work Phone: [phone] Glucose [Mass/Vol] 198 mg/dL 74-106 [facility] Work Phone: [phone] Comment on above: Fasting Glucose resu lt greater than or equal to 126 mg/dL suggests DIABETES MELLITUS per A.D.A. criteria. Potassium [Moles/Vol] 4.5 mmol/L 3.5-5.1 [facility] Work Phone: [phone] Sodium [Moles/Vol] 139 mmol/L 136-145 [facility] Work Phone: [phone] WBC (Bld) [#/Vol] 6.6 10*3/uL 4.4-11.0 [facility] Work Phone: Blood erythrocytes count (nu mber/volume)on 03-02-2022 RBC (Bld) [#/Vol] 3.28 10*6/uL 4.2-5.4 [facility] Work Phone: [phone] Blood hemoglobin measurement (mass/volume)on 03-02-2022 Hemoglobin (Bld) [Mass/Vol] 8.2 g/dL 12.0-15.0 [facility] Work Phone: [phone] Blood platelet mean volumeon 03-02-2022 Platelet mean volume (Bld) [Entitic vol] 10.8 fL 6.2-12.0 [facility] Work Phone: [phone] Determination of erythrocyte mean corpuscular volume (MCV)on 03-02-2022 MCV (RBC) [Entitic vol] 85.1 fL 81-99 [facility] Work Phone: [phone] Hematocrit Auto (Bld) [Volum e fraction]on 03-02-2022 Hematocrit (Bld) [Volume fraction] 27.9 % 37-47 [facility] Work Phone: [phone] Laboratory - Chemistry and C hemistry - challengeon 03-02-2022 CO2 [Moles/Vol] 30.0 mmol/L 21.0-32.0 [facility] Work Phone: [phone] Urea nitrogen/Creatinine [Mass ratio] 25.0 mg/mg 10-20 [facility] Work Phone: [phone] Laboratory - Hematology and Cell countson 03-02-2022 Erythrocyte distribution width (RBC) [Entitic vol] 49.0 fL 35.1-43.9 [facility] Work Phone: [phone] Erythrocyte distribution width (RBC) [Ratio] 15.8 % 11.6-14.6 [facility] Work Phone: [phone] MCH (RBC) [Entitic mass] 25.0 pg 27.0-32.0 [facility] Work Phone: [phone] MCHC Auto (RBC) [Mass/Vol]on 03-02-2022 MCHC (RBC) [Mass/Vol] 29.4 g/dL 32-36 [facility] Work Phone: No Panel Informationon 03-02 Estimated GFR (MDRD) Amer 35 mL/min >60 [facility] Work Phone: Comment on above: GFR Calc Estimated GFR (MDRD) Non-Af Amer 29 mL/min >60 [facility] Work Phone: Comment on above: Non- GFR Calc Platelets bldon 03-02-2022 Platelets (Bld) [#/Vol] 196 10*3/uL 150-450 [facility] Work Phone: Serum or plasma calcium kayleigh urement (mass/volume)on 03-02-2022 Calcium [Mass/Vol] 8.5 mg/dL 8.5-10.1 [facility] Work Phone: [phone] Serum or plasma creatinine m easurement (mass/volume)on 03-02-2022 Creatinine [Mass/Vol] 1.80 mg/dL 0.55-1.02 [facility] Work Phone: Comment on above: The validity of the calculated GFR & GFRAA in patients over 70 years has not been determined. Clinical correlation is essential. Serum or plasma urea nitroge n measurement (mass/volume)on 03-02-2022 Urea nitrogen [Mass/Vol] 45 mg/dL 7-18 [facility] Work Phone: Thin prep Papanicolaou smear with manual screeningon 03-02-2022 Thin prep Papanicolaou smear with manual screening 6 5-15 [facility] Work Phone: Absolute lymphocyte counton 02-26-2022 Lymphocytes Auto (Unsp spec) [#/Vol] 0.89 10*3/uL 0.83-4.51 [facility] Work Phone: Basophil percentageon 2021 Basophils/100 WBC (Bld) 0.7 % 0-1 [facility] Work Phone: Chloride [Moles/Vol] 103 mmol/L 98-107 [facility] Work Phone: Eosinophils/100 WBC (Bld) 1.8 % 0-5 [facility] Work Phone: Glucose [Mass/Vol] 254 mg/dL 74-106 [facility] Work Phone: Comment on above: Glucose result great er than or equal to 200 mg/dLsuggests DIABETES MELLITUS per A.D.A. criteria. Neutrophils (Bld) [#/Vol] 5.6 10*3/uL 2.0-7.7 [facility] Work Phone: Neutrophils/100 WBC (Bld) 75.1 % 47-70 [facility] Work Phone: Potassium [Moles/Vol] 5.1 mmol/L 3.5-5.1 [facility] Work Phone: Sodium [Moles/Vol] 136 mmol/L 136-145 [facility] Work Phone: WBC (Bld) [#/Vol] 7.4 10*3/uL 4.4-11.0 [facility] Work Phone: Blood erythrocytes count (nu mber/volume)on 02-26-2022 RBC (Bld) [#/Vol] 3.31 10*6/uL 4.2-5.4 [facility]: Blood hemoglobin measurement (mass/volume)on 02-26-2022 Hemoglobin (Bld) [Mass/Vol] 8.4 g/dL 12.0-15.0 [facility] Work Phone: Blood lymphocytes/100 leukoc yteson 02-26-2022 Lymphocytes/100 WBC (Bld) 12.0 % 19-41 [facility] Work Phone: [phone] Blood monocytes/100 leukocyt eson 02-26-2022 Monocytes/100 WBC (Bld) 10.0 % 0-10 [facility] Work Phone: Blood platelet mean volumeon 02-26-2022 Platelet mean volume (Bld) [Entitic vol] 10.8 fL 6.2-12.0 [facility] Work Phone: Determination of erythrocyte mean corpuscular volume (MCV)on 02-26-2022 MCV (RBC) [Entitic vol] 85.8 fL 81-99 [facility] Work Phone: Glucose Glucometer (BldC) [M ass/Vol]on 02-26-2022 Glucose [Mass/Vol] 343 mg/dL 74-106 [facility] Work Phone: Comment on above: MANAGEMENT OF PATIEN T CARE PER NURSING PROTOCOL Hematocrit Auto (Bld) [Volum e fraction]on 02-26-2022 Hematocrit (Bld) [Volume fraction] 28.4 % 37-47 [facility] Work Phone: Laboratory - Chemistry and C hemistry - challengeon 02-26-2022 CO2 [Moles/Vol] 27.0 mmol/L 21.0-32.0 [facility] Work Phone: Urea nitrogen/Creatinine [Mass ratio] 23.6 mg/mg 10-20 [facility] Work Phone: Laboratory - Hematology and Cell countson 02-26-2022 Erythrocyte distribution width (RBC) [Entitic vol] 48.4 fL 35.1-43.9 [facility] Work Phone: [phone] Erythrocyte distribution width (RBC) [Ratio] 15.5 % 11.6-14.6 [facility] Work Phone: [phone] Immature granulocytes/100 WBC (Bld) 0.400 % 0.0-0.9 [facility] Work Phone: [phone] Comment on above: IG% - Immature Granu locytes (promyelocytes, myelocytes and metamyelocytes) > 1% indicates that a LEFT SHIFT is Present. MCH (RBC) [Entitic mass] 25.4 pg 27.0-32.0 [facility] Work Phone: [phone] Nucleated RBC/100 WBC (Bld) [Ratio] 0 % 0-5 [facility] Work Phone: [phone] MCHC Auto (RBC) [Mass/Vol]on 02-26-2022 MCHC (RBC) [Mass/Vol] 29.6 g/dL 32-36 [facility] Work Phone: No Panel Informationon 02-26 Estimated Creatinine Clearance Calc 19.35 ml/min [facility] Work Phone: [phone] Estimated GFR (MDRD) Amer 26 mL/min >60 [facility] Work Phone: [phone] Comment on above: GFR Calc Estimated GFR (MDRD) Non-Af Amer 22 mL/min >60 [facility] Work Phone: [phone] Comment on above: Non- GFR Calc Platelets bldon 02-26-2022 Platelets (Bld) [#/Vol] 219 10*3/uL 150-450 [facility] Work Phone: [phone] Serum or plasma calcium kayleigh urement (mass/volume)on 02-26-2022 Calcium [Mass/Vol] 8.5 mg/dL 8.5-10.1 [facility] Work Phone: [phone] Serum or plasma creatinine m easurement (mass/volume)on 02-26-2022 Creatinine [Mass/Vol] 2.33 mg/dL 0.55-1.02 [facility] Work Phone: Comment on above: The validity of the calculated GFR & GFRAA in patients over 70 years has not been determined. Clinical correlation is essential. Serum or plasma urea nitroge n measurement (mass/volume)on 02-26-2022 Urea nitrogen [Mass/Vol] 55 mg/dL 7-18 [facility] Work Phone: [phone] Thin prep Papanicolaou smear with manual screeningon 02-26-2022 Thin prep Papanicolaou smear with manual screening 6 5-15 [facility] Work Phone: [phone] Basophil percentageon 2021 Basophil percentage 4.5 mg/dL 2.5-4.9 [facility] Work Phone: [phone] Laboratory - Chemistry and C hemistry - challengeon 02-25-2022 Magnesium [Mass/Vol] 2.7 mg/dL 1.6-2.6 [facility] Work Phone: [phone] Basophil percentageon 2021 Bilirubin [Mass/Vol] 1.00 mg/dL 0.20-1.00 [facility] Work Phone: [phone] Comment on above: For patients on eltr ombopag therapy, use of Dimension Watson TBIL is not recommended. Protein [Mass/Vol] 6.1 g/dL 6.4-8.2 [facility] Work Phone: [phone] Laboratory - Chemistry and C hemistry - challengeon 02-24-2022 ALP [Catalytic activity/Vol] 66 U/L 45-117 [facility] Work Phone: [phone] ALT [Catalytic activity/Vol] 15 U/L 13-56 [facility] Work Phone: [phone] Globulin (S) [Mass/Vol] 3.3 g/dL 2.2-4.2 [facility] Work Phone: [phone] Serum or plasma albumin kayleigh urement (mass/volume)on 02-24-2022 Albumin [Mass/Vol] 2.8 g/dL 3.2-5.0 [facility] Work Phone: Serum or plasma albumin/glob ulin mass ratioon 02-24-2022 Albumin/Globulin [Mass ratio] 0.8 {ratio} 0.9-2.4 [facility] Work Phone: Thin prep Papanicolaou smear with manual screeningon 02-24-2022 Thin prep Papanicolaou smear with manual screening 11 U/L 15-37 [facility] Work Phone: INR in Blood by Coagulation assayon 02-23-2022 INR Coag (Bld) [Relative time] 1.3 {INR} [facility] Work Phone: Laboratory - Coagulationon 0 02-23-2022 PT Coag (PPP) [Time] 16.1 s 11.7-14.9 [facility] Work Phone: Absolute lymphocyte counton 02-22-2022 Lymphocytes Auto (Unsp spec) [#/Vol] 1.12 10*3/uL 0.83-4.51 [facility] Work Phone: Basophil percentageon 2021 Basophils/100 WBC (Bld) 0.7 % 0-1 [facility] Work Phone: Chloride [Moles/Vol] 107 mmol/L 98-107 [facility] Work Phone: Eosinophils/100 WBC (Bld) 1.6 % 0-5 [facility] Work Phone: Glucose [Mass/Vol] 371 mg/dL 74-106 [facility] Work Phone: Comment on above: Glucose result great er than or equal to 200 mg/dLsuggests DIABETES MELLITUS per A.D.A. criteria. Neutrophils (Bld) [#/Vol] 6.4 10*3/uL 2.0-7.7 [facility] Work Phone: Neutrophils/100 WBC (Bld) 75.1 % 47-70 [facility] Work Phone: Potassium [Moles/Vol] 4.7 mmol/L 3.5-5.1 [facility] Work Phone: [phone] Sodium [Moles/Vol] 139 mmol/L 136-145 [facility] Work Phone: [phone] WBC (Bld) [#/Vol] 8.5 10*3/uL 4.4-11.0 [facility] Work Phone: [phone] Blood erythrocytes count (nu mber/volume)on 02-22-2022 RBC (Bld) [#/Vol] 3.16 10*6/uL 4.2-5.4 [facility]: [phone] Blood hemoglobin measurement (mass/volume)on 02-22-2022 Hemoglobin (Bld) [Mass/Vol] 7.7 g/dL 12.0-15.0 [facility] Work Phone: [phone] Blood lymphocytes/100 leukoc yteson 02-22-2022 Lymphocytes/100 WBC (Bld) 13.2 % 19-41 [facility] Work Phone: [phone] Blood monocytes/100 leukocyt eson 02-22-2022 Monocytes/100 WBC (Bld) 8.6 % 0-10 [facility] Work Phone: [phone] Blood platelet mean volumeon 02-22-2022 Platelet mean volume (Bld) [Entitic vol] 10.5 fL 6.2-12.0 [facility] Work Phone: [phone] Determination of erythrocyte mean corpuscular volume (MCV)on 02-22-2022 MCV (RBC) [Entitic vol] 85.4 fL 81-99 [facility] Work Phone: [phone] Hematocrit Auto (Bld) [Volum e fraction]on 02-22-2022 Hematocrit (Bld) [Volume fraction] 27.0 % 37-47 [facility] Work Phone: Laboratory - Chemistry and C hemistry - challengeon 02-22-2022 CO2 [Moles/Vol] 21.0 mmol/L 21.0-32.0 [facility] Work Phone: [phone] Natriuretic peptide B (Bld) [Mass/Vol] 595.4 pg/mL 0-100 [facility] Work Phone: [phone] Urea nitrogen/Creatinine [Mass ratio] 15.5 mg/mg 10-20 [facility] Work Phone: [phone] Laboratory - Hematology and Cell countson 02-22-2022 Erythrocyte distribution width (RBC) [Entitic vol] 46.9 fL 35.1-43.9 [facility] Work Phone: [phone] Erythrocyte distribution width (RBC) [Ratio] 15.2 % 11.6-14.6 [facility] Work Phone: [phone] Immature granulocytes/100 WBC (Bld) 0.800 % 0.0-0.9 [facility] Work Phone: [phone] Comment on above: IG% - Immature Granu locytes (promyelocytes, myelocytes and metamyelocytes) > 1% indicates that a LEFT SHIFT is Present. MCH (RBC) [Entitic mass] 24.4 pg 27.0-32.0 [facility] Work Phone: [phone] Nucleated RBC/100 WBC (Bld) [Ratio] 0 % 0-5 [facility] Work Phone: [phone] Lower GI hemoglobin IA Ql (S tl)on 02-22-2022 Stool Occult Blood (TREVOR) Positive [facility] Work Phone: [phone] MCHC Auto (RBC) [Mass/Vol]on 02-22-2022 MCHC (RBC) [Mass/Vol] 28.5 g/dL 32-36 [facility] Work Phone: [phone] No Panel Informationon 02-22 Troponin I High Sensitivity 64 pg/mL 3.0-54.0 [facility] Work Phone: [phone] Comment on above: Please Note: New Yvrose t Units and Gender Specific Reference Ranges. For more information see Policy Stat Procedure [facility] High Sensitivity Troponin (TNIH) and attachments. SARS-CoV-2 & FLU Antigen (Rapid) [facility] Work Phone: [phone] D-Dimer Quantitative (PE/DVT) 0.83 FEU/ug/m 0.27-0.49 [facility] Work Phone: Comment on above: D-Dimer ELEVATED (>0 .49): Additional studies and clinicalassessments are indicated to conclude diagnosis of:Deep Vein Thrombosis (DVT) or Pulmonary Embolism (PE)CRITICAL VALUE VERIFIED. CALLED TO LOUIS SANCHEZ02/22/22 0905 Kylie Fernandez.RESULTS READ BACK BY SAME . Estimated Creatinine Clearance Calc 23.24 ml/min [facility] Work Phone: [phone] Estimated GFR (MDRD) Amer 32 mL/min >60 [facility] Work Phone: [phone] Comment on above: GFR Calc Estimated GFR (MDRD) Non-Af Amer 27 mL/min >60 [facility] Work Phone: Comment on above: Non- GFR Calc Troponin I High Sensitivity 14 pg/mL 3.0-54.0 [facility] Work Phone: Comment on above: Please Note: New Yvrose t Units and Gender Specific Reference Ranges. For more information see Policy Stat Procedure [facility] High Sensitivity Troponin (TNIH) and attachments. Thyroid Stimulating Hormone (TSH) 5.15 uIU/mL 0.358-3.74 [facility] Work Phone: Platelets bldon 02-22-2022 Platelets (Bld) [#/Vol] 319 10*3/uL 150-450 [facility] Work Phone: [phone] Serum or plasma calcium kayleigh urement (mass/volume)on 02-22-2022 Calcium [Mass/Vol] 9.0 mg/dL 8.5-10.1 [facility] Work Phone: [phone] Serum or plasma creatinine m easurement (mass/volume)on 02-22-2022 Creatinine [Mass/Vol] 1.94 mg/dL 0.55-1.02 [facility] Work Phone: Comment on above: The validity of the calculated GFR & GFRAA in patients over 70 years has not been determined. Clinical correlation is essential. Serum or plasma urea nitroge n measurement (mass/volume)on 02-22-2022 Urea nitrogen [Mass/Vol] 30 mg/dL 7-18 [facility] Work Phone: Thin prep Papanicolaou smear with manual screeningon 02-22-2022 Thin prep Papanicolaou smear with manual screening 11 5-15 [facility] Work Phone: Whole blood hemoglobin A1c/t otal hemoglobin ratio (mass fraction)on 02-22-2022 HbA1c (Bld) [Mass fraction] 8.2 % 3.8-5.6 [facility] Work Phone: Comment on above: Normal < 5.7 % Predi abetic 5.7 - 6.4 % Diabetic >or= 6.5 % Please note range changes. Laboratory - Microbiology an d Antimicrobial susceptibility Bacteria identified Cx Nom (Bld) No growth in 5 days. [facility] Work Phone: Lower GI hemoglobin IA Ql (S tl) Stool Occult Blood (TREVOR) Positive [facility] Work Phone: Vital Signs Date Time Vital Sign Value Performing Clinician Facility 07-06-2025 17:27-0400 Diastolic blood pressure 89 mm[Hg] Leyda Lyon DO Work Phone: [facility] 07-06-2025 17:27-0400 SaO2% (BldA) [Mass fraction] 100 % Leyda Lyon DO Work Phone: [facility] 07-06-2025 17:27-0400 Systolic blood pressure 116 mm[Hg] Leyda Lyon DO Work Phone: [facility] 07-06-2025 16:26-0400 Heart rate 70 /min Leyda Lyon DO Work Phone: [facility] 07-06-2025 16:26-0400 Respiratory rate 17 /min Leyda Lyon DO Work Phone: [facility] 07-06-2025 12:00-0400 Body temperature 97.59 [degF] Leyda Lyon DO Work Phone: [facility] 07-05-2025 09:00-0400 Body mass index (BMI) [Ratio] 38.67 kg/m2 Leyda Lyon DO Work Phone: [facility] 07-05-2025 09:00-0400 Body weight 105.4 kg Leyda Lyon DO Work Phone: [facility] 07-05-2025 07:04-0400 Body height 165.1 cm Leyda Lyon DO Work Phone: [facility] 07-04-2025 15:05-0400 Diastolic blood pressure 70 mm[Hg] Ach 1 [facility] 07-04-2025 15:05-0400 Heart rate 63 /min Ach 1 [facility] 07-04-2025 15:05-0400 Respiratory rate 16 /min Ach 1 [facility] 07-04-2025 15:05-0400 SaO2% (BldA) [Mass fraction] 100 % Ach 1 [facility] 07-04-2025 15:05-0400 Systolic blood pressure 129 mm[Hg] Ach 1 [facility] 07-03-2025 22:48-0400 Heart rate 76 /min Gerardo Felder MD Work Phone: [facility] 07-03-2025 22:48-0400 Respiratory rate 16 /min Gerardo Felder MD Work Phone: [facility] 07-03-2025 22:48-0400 SaO2% (BldA) [Mass fraction] 100 % Gerardo Felder MD Work Phone: [facility] 07-03-2025 20:34-0400 Diastolic blood pressure 80 mm[Hg] Gerardo Felder MD Work Phone: [facility] 07-03-2025 20:34-0400 Systolic blood pressure 126 mm[Hg] Gerardo Felder MD Work Phone: [facility] 07-03-2025 13:39-0400 Body height 165.1 cm Gerardo Felder MD Work Phone: [facility] 07-03-2025 13:39-0400 Body mass index (BMI) [Ratio] 39.54 kg/m2 Gerardo Felder MD Work Phone: [facility] 07-03-2025 13:39-0400 Body temperature 98.2 [degF] Gerardo Felder MD Work Phone: [facility] 07-03-2025 13:39-0400 Body weight 107.78 kg Gerardo Felder MD Work Phone: [facility] 07-02-2025 19:00-0400 Diastolic blood pressure 53 mm[Hg] Klever Mudrakola DO Work Phone: [facility] 07-02-2025 19:00-0400 Heart rate 67 /min Klever Mudrakola DO Work Phone: [facility] 07-02-2025 19:00-0400 Respiratory rate 19 /min Klever Mudrakola DO Work Phone: [facility] 07-02-2025 19:00-0400 SaO2% (BldA) [Mass fraction] 100 % Klever Mudrakola DO Work Phone: [facility] 07-02-2025 19:00-0400 Systolic blood pressure 112 mm[Hg] Klever Mudrakola DO Work Phone: [facility] 07-02-2025 16:29-0400 Body temperature 97.39 [degF] Klever Mudrakola DO Work Phone: [facility] 06-21-2025 16:49-0400 Diastolic blood pressure 67 mm[Hg] Omid Orona MD Work Phone: [facility] 06-21-2025 16:49-0400 Heart rate 52 /min Omid Orona MD Work Phone: [facility] 06-21-2025 16:49-0400 SaO2% (BldA) [Mass fraction] 100 % Omid Orona MD Work Phone: [facility] 06-21-2025 16:49-0400 Systolic blood pressure 151 mm[Hg] Omid Orona MD Work Phone: [facility] 06-21-2025 12:52-0400 Respiratory rate 20 /min Omid Orona MD Work Phone: [facility] 06-21-2025 08:18-0400 Body temperature 97.81 [degF] Omid Orona MD Work Phone: [facility] 06-20-2025 11:40-0400 Body height 165.1 cm Omid Orona MD Work Phone: [facility] 06-11-2025 12:00-0400 Body mass index (BMI) [Ratio] 38.12 kg/m2 Omid Orona MD Work Phone: [facility] 06-11-2025 12:00-0400 Body weight 103.9 kg Omid Orona MD Work Phone: [facility] 02-12-2025 08:00-0400 Diastolic blood pressure 40 mm[Hg] Dr. Amado James MD Work Phone: [facility] 02-12-2025 08:00-0400 Heart rate 68 /min Dr. Amado James MD Work Phone: [facility] 02-12-2025 08:00-0400 Inhaled oxygen concentration 35 % Dr. Amado James MD Work Phone: 7(567)182-967874 [place] [address] 02-12-2025 08:00-0400 Respiratory rate 14 /min Dr. Amado James MD Work Phone: 0(141)502-553174 [place] [address] 02-12-2025 08:00-0400 SaO2% (BldA) [Mass fraction] 94 % Dr. Amado James MD Work Phone: [facility] 02-12-2025 08:00-0400 Systolic blood pressure 108 mm[Hg] Dr. Amado James MD Work Phone: [facility] 02-12-2025 06:00-0400 Body temperature 97.6 [degF] Dr. Amado James MD Work Phone: [facility] 02-12-2025 05:53-0400 Body mass index (BMI) [Ratio] 39.5 kg/m2 Dr. Amado James MD Work Phone: 7(627)817-452574 [place] [address] 02-12-2025 05:53-0400 Body weight 107.[address] Amado James MD Work Phone: 6(552)108-075025 [place] [address] 02-11-2025 13:30-0400 Body height 165.[address] Amado James MD Work Phone: 2(244)881-990025 [place] [address] 02-10-2025 21:00-0400 Inhaled oxygen flow rate 35 L/min Dr. Amado James MD Work Phone: 5(229)434-231625 [place] [address] 02-05-2025 15:16-0400 Body temperature 97.1 [degF] Dr. Amado James MD Work Phone: 6(578)477-173325 [place] [address] 02-05-2025 15:16-0400 Diastolic blood pressure 60 mm[Hg] Dr. Amado James MD Work Phone: 8(347)762-052325 [place] [address] 02-05-2025 15:16-0400 Heart rate 91 /min Dr. Amado James MD Work Phone: 3(627)929-733025 [place] [address] 02-05-2025 15:16-0400 Inhaled oxygen concentration 60 % Dr. Amado James MD Work Phone: 5(464)696-402925 [place] [address] 02-05-2025 15:16-0400 Respiratory rate 29 /min Dr. Amado James MD Work Phone: 1(990)860-438125 [place] [address] 02-05-2025 15:16-0400 SaO2% (BldA) [Mass fraction] 100 % Dr. Amado James MD Work Phone: 8(125)909-799125 [place] [address] 02-05-2025 15:16-0400 Systolic blood pressure 141 mm[Hg] Dr. Amado James MD Work Phone: 3(943)871-221274 [place] [address] 02-05-2025 13:36-0400 Inhaled oxygen flow rate 6 L/min Dr. Amado James MD Work Phone: 2(212)038-124825 [place] [address] 02-05-2025 09:46-0400 Body height 160.[address] Amado James MD Work Phone: 5(206)911-414074 [place] [address] 02-05-2025 09:46-0400 Body mass index (BMI) [Ratio] 20.6 kg/m2 Dr. Amado James MD Work Phone: 8(698)277-127925 [place] [address] 02-05-2025 09:46-0400 Body weight 52.[address] Amado James MD Work Phone: 6(996)116-343625 [place] [address] 01-29-2025 07:34-0400 Body mass index (BMI) [Ratio] 42.1 kg/m2 Dr. Amado James MD Work Phone: 1(258)147-399025 [place] [address] 01-29-2025 07:34-0400 Body weight 118.[address] Amado James MD Work Phone: 0(446)612-314225 [place] [address] 01-29-2025 07:34-0400 Diastolic blood pressure 65 mm[Hg] Dr. Amado James MD Work Phone: 9(060)269-114625 [place] [address] 01-29-2025 07:34-0400 Heart rate 68 /min Dr. Amado James MD Work Phone: 9(621)259-933025 [place] [address] 01-29-2025 07:34-0400 Respiratory rate 18 /min Dr. Amado James MD Work Phone: 4(804)318-852125 [place] [address] 01-29-2025 07:34-0400 SaO2% (BldA) [Mass fraction] 94 % Dr. Amado James MD Work Phone: 3(417)618-717025 [place] [address] 01-29-2025 07:34-0400 Systolic blood pressure 124 mm[Hg] Dr. Amado James MD Work Phone: [facility] 11-27-2024 13:54-0500 Body weight 109.77 kg Rufina Soares APRN.CNP Work Phone: [facility] 11-27-2024 13:54-0500 Diastolic blood pressure 80 mm[Hg] Rufina Soares APRN.METALLURGIST HELPER Work Phone: [facility] 11-27-2024 13:54-0500 Heart rate 65 /min Rufina Soares GROUNDMAN/LINEMAN.METALLURGIST HELPER Work Phone: [facility] 11-27-2024 13:54-0500 Respiratory rate 16 /min Rufinasharon Soares GROUNDMAN/LINEMAN.METALLURGIST HELPER Work Phone: [facility] 11-27-2024 13:54-0500 SaO2% (BldA) [Mass fraction] 96 % Rufina Soares GROUNDMAN/LINEMAN.METALLURGIST HELPER Work Phone: [facility] 11-27-2024 13:54-0500 Systolic blood pressure 126 mm[Hg] Rufina Soares GROUNDMAN/LINEMAN.METALLURGIST HELPER Work Phone: [facility] 11-23-2024 08:50-0500 Body mass index (BMI) [Ratio] 42.7 kg/m2 Dr. Amado James MD Work Phone: 2(912)817-217025 [place] [address] 11-23-2024 08:50-0500 Body temperature 97.9 [degF] Dr. Amado James MD Work Phone: 9(429)896-142925 [place] [address] 11-23-2024 08:50-0500 Diastolic blood pressure 66 mm[Hg] Dr. Amado James MD Work Phone: 8(274)941-579925 [place] [address] 11-23-2024 08:50-0500 Heart rate 76 /min Dr. Amado James MD Work Phone: 3(580)677-008125 [place] [address] 11-23-2024 08:50-0500 Respiratory rate 22 /min Dr. Amado James MD Work Phone: 0(221)987-206625 [place] [address] 11-23-2024 08:50-0500 Systolic blood pressure 144 mm[Hg] Dr. Amado James MD Work Phone: 7(668)317-712425 [place] [address] 10-28-2024 00:57-0500 Body weight 120.[address] Amado James MD Work Phone: 8(238)438-581025 [place] [address] 10-26-2024 08:38-0500 Body mass index (BMI) [Ratio] 42.7 kg/m2 Dr. Amado James MD Work Phone: 7(648)791-086925 [place] [address] 10-26-2024 08:38-0500 Body temperature 97.6 [degF] Dr. Amado James MD Work Phone: [facility] 10-26-2024 08:38-0500 Diastolic blood pressure 50 mm[Hg] Dr. Amado James MD Work Phone: [facility] 10-26-2024 08:38-0500 Heart rate 69 /min Dr. Amado James MD Work Phone: [facility] 10-26-2024 08:38-0500 Respiratory rate 22 /min Dr. Amado James MD Work Phone: [facility] 10-26-2024 08:38-0500 Systolic blood pressure 113 mm[Hg] Dr. Amado James MD Work Phone: [facility] 09-27-2024 00:36-0500 Body weight 120.[address] Amado James MD Work Phone: [facility] 09-26-2024 09:30-0500 Body weight 110.3 kg Amado James MD Work Phone: [facility] 09-26-2024 09:30-0500 Diastolic blood pressure 60 mm[Hg] Amado James MD Work Phone: [facility] 09-26-2024 09:30-0500 Heart rate 76 /min Amado James MD Work Phone: [facility] 09-26-2024 09:30-0500 Respiratory rate 20 /min Amado James MD Work Phone: [facility] 09-26-2024 09:30-0500 Systolic blood pressure 108 mm[Hg] Amado James MD Work Phone: [facility] 08-28-2024 13:35-0500 Body weight 113 kg Rufina Soares GROUNDMAN/LINEMAN.METALLURGIST HELPER Work Phone: [facility] 08-28-2024 13:35-0500 Diastolic blood pressure 60 mm[Hg] Rufina Soares GROUNDMAN/LINEMAN.METALLURGIST HELPER Work Phone: [facility] 08-28-2024 13:35-0500 Heart rate 70 /min Rufina Tannhof GROUNDMAN/LINEMAN.METALLURGIST HELPER Work Phone: [facility] 08-28-2024 13:35-0500 Respiratory rate 16 /min Rufina Tannhof GROUNDMAN/LINEMAN.METALLURGIST HELPER Work Phone: [facility] 08-28-2024 13:35-0500 SaO2% (BldA) [Mass fraction] 96 % Rufina Tannhof GROUNDMAN/LINEMAN.METALLURGIST HELPER Work Phone: [facility] 08-28-2024 13:35-0500 Systolic blood pressure 128 mm[Hg] Rufina Tannhof GROUNDMAN/LINEMAN.METALLURGIST HELPER Work Phone: [facility] 07-11-2024 16:22-0400 Diastolic blood pressure 80 mm[Hg] Amado James MD Work Phone: [facility] 07-11-2024 16:22-0400 Systolic blood pressure 136 mm[Hg] Amado James MD Work Phone: [facility] 07-11-2024 16:16-0400 Body weight 124.2 kg Amado James MD Work Phone: [facility] 07-11-2024 16:16-0400 Heart rate 76 /min Amado James MD Work Phone: [facility] 07-11-2024 16:16-0400 Respiratory rate 20 /min Amado James MD Work Phone: [facility] 07-11-2024 16:16-0400 SaO2% (BldA) [Mass fraction] 99 % Amado James MD Work Phone: [facility] 05-06-2024 08:43-0400 Body weight 119 kg Amado James MD Work Phone: [facility] 05-06-2024 08:43-0400 Diastolic blood pressure 64 mm[Hg] Amado James MD Work Phone: [facility] 05-06-2024 08:43-0400 Heart rate 68 /min Amado James MD Work Phone: [facility] 05-06-2024 08:43-0400 Respiratory rate 16 /min Amado James MD Work Phone: [facility] 05-06-2024 08:43-0400 SaO2% (BldA) [Mass fraction] 99 % Amado James MD Work Phone: [facility] 05-06-2024 08:43-0400 Systolic blood pressure 97 mm[Hg] Amado James MD Work Phone: [facility] 04-10-2024 18:07-0400 Body weight 120.02 kg Amado James MD Work Phone: [facility] 04-10-2024 18:07-0400 Diastolic blood pressure 80 mm[Hg] Amado James MD Work Phone: [facility] 04-10-2024 18:07-0400 Heart rate 74 /min Amado James MD Work Phone: [facility] 04-10-2024 18:07-0400 Respiratory rate 16 /min Amado James MD Work Phone: [facility] 04-10-2024 18:07-0400 Systolic blood pressure 140 mm[Hg] Amado James MD Work Phone: [facility] 06-17-2023 15:24-0400 Body height 165.[address] Amado James Work Phone: [facility] 06-17-2023 15:24-0400 Body mass index (BMI) [Ratio] 41.9 kg/m2 Dr. Amado James Work Phone: [facility] 06-17-2023 15:24-0400 Body weight 114.[address] Amado James Work Phone: [facility] 06-17-2023 15:24-0400 Diastolic blood pressure 69 mm[Hg] Dr. Amado James Work Phone: [facility] 06-17-2023 15:24-0400 Heart rate 71 /min Dr. Amado James Work Phone: [facility] 06-17-2023 15:24-0400 Respiratory rate 22 /min Dr. Amado James Work Phone: [facility] 06-17-2023 15:24-0400 SaO2% (BldA) [Mass fraction] 94 % Dr. Amado James Work Phone: [facility] 06-17-2023 15:24-0400 Systolic blood pressure 161 mm[Hg] Dr. Amado James Work Phone: [facility] 04-15-2023 15:40-0400 Body weight 116.57 kg Amado James MD Work Phone: [facility] 04-15-2023 15:40-0400 Diastolic blood pressure 70 mm[Hg] Amado James MD Work Phone: [facility] 04-15-2023 15:40-0400 Heart rate 70 /min Amado James MD Work Phone: [facility] 04-15-2023 15:40-0400 Respiratory rate 20 /min Amado James MD Work Phone: [facility] 04-15-2023 15:40-0400 Systolic blood pressure 128 mm[Hg] Amado James MD Work Phone: [facility] 07-13-2022 15:42-0400 Body weight 114.31 kg Amado James MD Work Phone: [facility] 07-13-2022 15:42-0400 Diastolic blood pressure 80 mm[Hg] Amado James MD Work Phone: [facility] 07-13-2022 15:42-0400 Heart rate 64 /min Amado James MD Work Phone: [facility] 07-13-2022 15:42-0400 Respiratory rate 20 /min Amado James MD Work Phone: [facility] 07-13-2022 15:42-0400 Systolic blood pressure 124 mm[Hg] Amado James MD Work Phone: [facility] 06-03-2022 10:21-0400 Diastolic blood pressure 47 mm[Hg] Dr. Amado James Work Phone: [facility] Work Phone: 06-03-2022 10:21-0400 Systolic blood pressure 102 mm[Hg] Dr. Amado James Work Phone: [facility] Work Phone: 06-03-2022 09:06-0400 Body height 165.[address] Amado James Work Phone: [facility] Work Phone: 06-03-2022 09:06-0400 Body mass index (BMI) [Ratio] 42.5 kg/m2 Dr. Amado James Work Phone: [facility] Work Phone: 06-03-2022 09:06-0400 Body weight 116.[address] Amado James Work Phone: [facility] Work Phone: 06-03-2022 09:06-0400 Heart rate 68 /min Dr. Amado James Work Phone: [facility] Work Phone: 06-03-2022 09:06-0400 Respiratory rate 18 /min Dr. Amado James Work Phone: [facility] Work Phone: 06-03-2022 09:06-0400 SaO2% (BldA) [Mass fraction] 96 % Dr. Amado James Work Phone: [facility] Work Phone: 04-07-2022 15:22-0400 Body weight 118.39 kg Amado James MD Work Phone: [facility] 04-07-2022 15:22-0400 Diastolic blood pressure 68 mm[Hg] Amado James MD Work Phone: [facility] 04-07-2022 15:22-0400 Heart rate 78 /min Amado James MD Work Phone: [facility] 04-07-2022 15:22-0400 Respiratory rate 20 /min Amado James MD Work Phone: [facility] 04-07-2022 15:22-0400 Systolic blood pressure 126 mm[Hg] Amado James MD Work Phone: [facility] 02-26-2022 15:19-0400 SaO2% (BldA) [Mass fraction] 94 % Dr. Amado James Work Phone: [facility] Work Phone: 02-26-2022 15:18-0400 Inhaled oxygen flow rate 1 L/min Dr. Amado James Work Phone: [facility] Work Phone: 02-26-2022 15:15-0400 Body temperature 97.6 [degF] Dr. Amado James Work Phone: [facility] Work Phone: 02-26-2022 15:15-0400 Diastolic blood pressure 54 mm[Hg] Dr. Amado James Work Phone: [facility] Work Phone: 02-26-2022 15:15-0400 Heart rate 65 /min Dr. Amado James Work Phone: [facility] Work Phone: 02-26-2022 15:15-0400 Respiratory rate 18 /min Dr. Amado James Work Phone: [facility] Work Phone: 02-26-2022 15:15-0400 Systolic blood pressure 113 mm[Hg] Dr. Amado James Work Phone: [facility] Work Phone: 02-26-2022 14:30-0400 Body height 165.[address] Amado James Work Phone: [facility] Work Phone: 02-26-2022 14:30-0400 Body weight 126.[address] Amado James Work Phone: [facility] Work Phone: 02-23-2022 23:05-0400 Inhaled oxygen concentration 30 % Dr. Amado James Work Phone: [facility] Work Phone: 02-23-2022 05:44-0400 Body mass index (BMI) [Ratio] 46.2 kg/m2 Dr. Amado James Work Phone: [facility] Work Phone: 02-22-2022 12:25-0400 Body temperature 97.2 [degF] Dr. Amado James Work Phone: [facility] Work Phone: 02-22-2022 12:25-0400 Diastolic blood pressure 97 mm[Hg] Dr. Amado James Work Phone: [facility] Work Phone: 02-22-2022 12:25-0400 Heart rate 95 /min [facility]. Amado [facility] Work Phone: [facility] [facility] Work Phone: 02-22-2022 12:25-0400 Respiratory rate 32 /min Dr. Amado James Work Phone: [facility] Work Phone: 02-22-2022 12:25-0400 SaO2% (BldA) [Mass fraction] 96 % Dr. Amado James Work Phone: [facility] Work Phone: 02-22-2022 12:25-0400 Systolic blood pressure 183 mm[Hg] Dr. Amado James Work Phone: [facility] Work Phone: 02-22-2022 08:18-0400 Body height 166.[address] Amado James Work Phone: [facility] Work Phone: 02-22-2022 08:18-0400 Body mass index (BMI) [Ratio] 47 kg/m2 Dr. Amado James Work Phone: [facility] Work Phone: 02-22-2022 08:18-0400 Body weight 130.[address] Amado James Work Phone: [facility] Work Phone: Encounters Encounter Date Encounter Type Care Provider Facility Start: 07-04-2025 End: 07-06-2025 Evaluation and management of inpatient [facility] Comment on above: ESRD (end stage jeanne l disease) on dialysis (HCC) (Primary Dx) Start: 07-04-2025 End: 07-04-2025 Subsequent hospital visit by physician Bret Ir Exam Room 1 [facility] Special Procedures Comment on above: Dialysis complicatio n, subsequent encounter Start: 07-04-2025 End: 07-04-2025 ambulatory [facility] Start: 07-03-2025 End: 07-03-2025 Emergency department patient visit Gerardo Felder MD Work Phone: [facility] EMERGENCY DEPT Comment on above: Dialysis complicatio n, subsequent encounter Start: 07-02-2025 End: 07-02-2025 Emergency department patient visit Klever Rand Work Phone: [facility] EMERGENCY DEPT Comment on above: Dialysis complicatio n, initial encounter (Primary Dx) Start: 06-27-2025 [facility] Facility:[facility] Start: 06-01-2025 End: 06-21-2025 Evaluation and management of inpatient Omid Orona MD Work Phone: [facility] Intensive Care Unit ICU 2 Start: 06-01-2025 ambulatory [facility] Facility:[facility] Start: 04-05-2025 End: 04-05-2025 ambulatory BISHNU MENDEZ Facility:A Start: 03-22-2025 End: 03-26-2025 ambulatory JAS RAMIREZ MD Facility:A Start: 03-22-2025 End: 03-26-2025 ambulatory JSA RAMIREZ MD Facility:A Start: 03-21-2025 End: 03-21-2025 ambulatory JANAE ZARCO MD Facility:A Start: 03-12-2025 ambulatory Januszsachi Reaves Facility :[facility] Start: 03-07-2025 End: 04-18-2025 ambulatory EMERY SAGE MD Facility:A Start: 02-12-[address] Amado mccracken MD Work Phone: [facility] Work Phone: Start: 02-12-2025 Non-patient / Non-visit Dr[facility]cd[facility] Start: 02-11-2025 Non-patient / Non-visit Dr. Mcdonald [facility] Start: 02-10-2025 Non-patient / Non-visit Dr. Mcdonald [facility] Start: 02-09-2025 Non-patient / Non-visit Dr. Mcdonald [facility] Start: 02-09-2025 Non-patient / Non-visit Dr. Paris Cardona MD -[facility] Work Phone: Start: 02-09-2025 Non-patient / Non-visit Dr. Jose Hull own [facility] Start: 02-08-2025 Non-patient / Non-visit Dr. Milly Gilbert MD [facility] Start: 02-08-2025 Non-patient / Non-visit Dr. Jose Hull own [facility] Start: 02-08-2025 Non-patient / Non-visit Dr. Zachery Gomez MD -[facility] Work Phone: Start: 02-07-2025 Non-patient / Non-visit Dr. Kalyn Cardona MD -[facility] Start: 02-06-2025 ambulatory Amado White y:[facility] Start: 02-06-2025 Non-patient / Non-visit Dr. Hogan [facility] Start: 02-06-2025 Non-patient / Non-visit Dr. Zachery Gomez MD -[facility] Work Phone: Start: 02-05-2025 Non-patient / Non-visit Dr. Kalyn Cardona MD [facility] Start: 02-05-2025 Non-patient / Non-visit Dr. Zachery Gomez MD -[facility] Work Phone: Start: 02-05-2025 ambulatory Zachery Gomez Facility: [facility] Start: 02-05-2025 End: 03-07-2025 Evaluation and management of inpatient Dr. Zachery Gomez MD -Intensive Care Unit Work Phone: Start: 01-29-2025 End: 01-29-[address] Amado James MD Work Phone: [facility] Work Phone: Start: 01-29-2025 End: 01-29-2025 Patient encounter procedure Janusz Ayersiter PA -Laboratory Work Phone: Start: 01-29-2025 End: 01-29-2025 Patient encounter procedure Janusz Demiter PA -[facility] Work Phone: Start: 01-29-2025 End: 01-29-2025 ambulatory Janusz Demiter Facility:[facility] Start: 01-29-2025 End: 01-29-2025 ambulatory Janusz Demiter Facility:[facility] Start: 12-19-2024 End: 02-18-2025 Follow-up encounter Amado James MD Work Phone: [facility] Start: 12-18-2024 End: 12-18-2024 ambulatory AMADO JAMES Facility:[facility] Start: 11-27-2024 End: 11-27-2024 Office outpatient visit 25 minutes Rufina Soares RENITA.METALLURGIST HELPER Work Phone: [facility] Comment on above: Type 2 diabetes linda itus with chronic kidney disease, with long-term current use of insulin, unspecified CKD stage (HCC) (Primary Dx); Essential hypertension, benign; Hyperlipidemia, unspecified hyperlipidemia type; Chronic kidney disease, stage 4 (severe) (HCC) Start: 11-27-2024 End: 11-27-2024 ambulatory [facility] Facility:[facility] Start: 11-23-2024 End: 11-24-2024 ambulatory Leyda Erwin Facility:[facility] Start: 11-23-2024 End: 11-24-2024 Discharged Recurring Leyda Erwin DPM -[facility] Work Phone: Start: 11-14-2024 End: 11-14-2024 Telephone encounter Amado James MD Work Phone: [facility] Comment on above: POC update Start: 11-08-2024 End: 11-08-2024 Refill Amado James MD Work Phone: [address] [place] [address] Comment on above: Refill Request Start: 10-26-2024 End: 10-27-2024 ambulatory Leyda Erwin Facility:[facility] Start: 10-26-2024 End: 10-27-2024 Discharged Recurring Leyda Erwin DPM -[facility] Work Phone: Start: 10-20-2024 End: 10-20-2024 Telephone encounter Amado James MD Work Phone: [facility] Comment on above: Clinical Update (re- cert for hh) Start: 10-06-2024 End: 10-09-2024 ambulatory [facility] Start: 10-06-2024 End: 10-09-2024 Patient encounter procedure Jessica [facility] Comment on above: Population Health Na vigation Outreach (Nadeen Figueroa [place] [facility]) Start: 09-29-2024 End: 09-29-2024 Telephone encounter Amado James MD Work Phone: [facility] Comment on above: Patient Update Start: 09-26-2024 End: 09-26-2024 ambulatory AMADO JAMES Facility:[facility] Start: 09-26-2024 End: 09-26-2024 Patient encounter procedure [facility] Comment on above: Type 2 diabetes linda itus with chronic kidney disease, with long-term current use of insulin, unspecified CKD stage (HCC) (Primary Dx); Essential hypertension, benign; Hyperlipidemia, unspecified hyperlipidemia type; Chronic kidney disease, stage 4 (severe) (HCC); Chronic anemia; Type 2 diabetes mellitus with stage 3b chronic kidney disease, without long-term current use of insulin (HCC); Controlled type 2 diabetes mellitus without complication, with long-term current use of insulin (HCC) Start: 09-15-2024 End: 09-15-2024 Telephone encounter Amado James MD Work Phone: [facility] Comment on above: Retirement Cont inued Plan of Care Start: 09-14-2024 End: 09-26-2024 ambulatory [facility] Facility:[facility] Start: 09-11-2024 End: 09-13-2024 Telephone encounter Amado James MD Work Phone: [facility] Comment on above: Patient Update (Bloo [employer] Sugars) Start: 09-08-2024 End: 09-08-2024 Telephone encounter Amado James MD Work Phone: [facility] Comment on above: Orders (HH visit) Start: 09-04-2024 End: 09-04-2024 Telephone encounter Amado James MD Work Phone: [facility] Comment on above: Orders Start: 09-01-2024 End: 09-04-2024 Telephone encounter Rufina Soares APRN.CNP Work Phone: [facility] Start: 08-31-2024 End: 08-31-2024 ambulatory AMADO JAMES Facility:[facility] Start: 08-30-2024 End: 08-31-2024 Telephone encounter Amado James MD Work Phone: [facility] Comment on above: OT plan of care Start: 08-29-2024 End: 08-29-2024 Telephone encounter Amado James MD Work Phone: [facility] Comment on above: Physical Therapy Kathy n of Care Start: 08-28-2024 End: 08-28-2024 Patient encounter procedure Rufina Soares GROUNDMAN/LINEMAN.METALLURGIST HELPER Work Phone: [facility] Comment on above: Hospital discharge f ollow-up (Primary Dx); Type 2 diabetes mellitus with hypoglycaemia without coma (HCC); CKD (chronic kidney disease) stage 4, GFR 15-29 ml/min (HCC); Chronic anemia; Chronic heart failure with preserved ejection fraction (HCC) Start: 08-28-2024 End: 08-28-2024 ambulatory RUFINA SOARES Facility:[facility] Start: 08-25-2024 End: 08-25-2024 Patient Outreach Mariza Graham MA [facility] Comment on above: Transition Of Care Start: 08-22-2024 End: 08-22-2024 Telephone encounter Amado James MD Work Phone: [facility] Comment on above: verbal orders Start: 08-21-2024 ambulatory Eduardo Figueroa Facility:[facility] Start: 08-19-2024 ambulatory Oscar Poole Facili ty:[facility] Start: 08-19-2024 End: 08-22-2024 Evaluation and management of inpatient Oscar Poole Facility:[facility] Start: 08-18-2024 End: 08-18-2024 Telephone encounter Amado James MD Work Phone: [facility] Comment on above: home health calling Start: 08-17-2024 End: 08-26-2024 ambulatory Leyda Erwin Facility:[facility] Start: 08-16-2024 End: 08-16-2024 ambulatory Amado James Facility:[facility] Start: 08-11-2024 ambulatory Lea Loza Facility:[facility] Start: 08-04-2024 ambulatory Tiffany SHEPPARD Facili ty:[facility] Start: 07-27-2024 End: 07-27-2024 ambulatory Leyda Erwin Facility:[facility] Start: 07-19-2024 ambulatory Amado James Facilit y:[facility] Start: 07-14-2024 End: 07-14-2024 ambulatory Zachery Jason Facility:[facility] Start: 07-13-2024 ambulatory [facility] Facility: [facility] Start: 07-13-2024 End: 07-18-2024 Evaluation and management of inpatient [facility] Facility:[facility] Start: 07-13-2024 End: 07-13-2024 Telephone encounter Amado James MD Work Phone: [facility] Comment on above: Medication Problem Start: 07-12-2024 End: 07-12-2024 Refill Amado James MD Work Phone: [facility] Comment on above: Refill Request Start: 07-11-2024 End: 07-11-2024 ambulatory AMADO JAMES Facility:[facility] Start: 07-11-2024 End: 07-11-2024 Patient encounter procedure Amado James MD Work Phone: [facility] Comment on above: Encounter for annual wellness exam in Medicare patient (Primary Dx); Type 2 diabetes mellitus with chronic kidney disease, with long-term current use of insulin, unspecified CKD stage (HCC); Essential hypertension, benign; Hyperlipidemia, unspecified hyperlipidemia type; Chronic kidney disease, stage 4 (severe) (HCC); Heart failure, unspecified HF chronicity, unspecified heart failure type (HCC); Bilateral leg edema; Diabetic ulcer of right midfoot associated with type 2 diabetes mellitus, unspecified ulcer stage (HCC); Other depression; Anemia, unspecified type; Morbid obesity with body mass index of 40.0-44.9 in adult (HCC) Start: 07-06-2024 ambulatory Aleksandar Lalyoandy ty:[facility] Start: 06-16-2024 End: 06-16-2024 Telephone encounter Amado James MD Work Phone: [facility] Comment on above: Fax Last OV Note Start: 06-06-2024 End: 06-06-2024 Refill Amado James MD Work Phone: [facility] Comment on above: Refill Request Start: 06-05-2024 End: 06-05-2024 Telephone encounter Amado James MD Work Phone: [facility] Comment on above: Opened In Error Start: 06-02-2024 End: 06-02-2024 Telephone encounter Amado James MD Work Phone: [facility] Comment on above: Fax Request Start: 05-06-2024 End: 05-06-2024 ambulatory AMADO JAMES Facility:[facility] Start: 05-06-2024 End: 05-06-2024 Patient encounter procedure Amado James MD Work Phone: [facility] Comment on above: 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 2 diabetes mellitus, unspecified ulcer stage (HCC) (Primary Dx); Morbid obesity with body mass index of 40.0-44.9 in adult (HCC); Essential hypertension, benign; Type 2 diabetes mellitus with chronic kidney disease, with long-term current use of insulin, unspecified CKD stage (HCC) Start: 05-03-2024 ambulatory [facility]inn[facility] Start: 05-03-2024 Patient encounter procedure [facility] [place] Comment on above: Population Health Na vigation Outreach (Nadeen Figueroa [facility]) Start: 04-18-2024 Telephone encounter Amado auguste MD Work Phone: [facility] Comment on above: Results Start: 04-15-2024 End: 04-15-2024 ambulatory AMADO JAMES Facility:[facility] Start: 04-10-2024 End: 04-10-2024 ambulatory AMADO JAMES Facility:[facility] Start: 04-10-2024 End: 04-10-2024 Patient encounter procedure Amado James MD Work Phone: [facility] Comment on above: Hyperlipidemia, unsp ecified hyperlipidemia type (Primary Dx); Chronic kidney disease, stage 4 (severe) (HCC); Heart failure, unspecified HF chronicity, unspecified heart failure type (HCC); Morbid obesity with body mass index of 40.0-44.9 in adult ([facility]); Type 2 diabetes mellitus with stage 3b chronic kidney disease, without long-term current use of insulin ([facility]); Essential hypertension, benign; Anemia, unspecified type; Bilateral leg edema; Cellulitis of skin; Other depression Start: 04-04-2024 Telephone encounter Maciel parker APRN.CNP Work Phone: [facility] [place] Comment on above: Appointment Start: 02-28-2024 ambulatory Jessica Mckinnon MA [employer] [facility] Start: 02-28-2024 Patient encounter procedure Jessica Mckinnon MA [facility] Comment on above: Population Health Na vigation Outreach (Nade[facility] BREEZY [facility] ROSTER workbench - AWV, Care gaps, HCC gap closure - [place] [facility]) Start: 02-22-2024 Refill Amado zayas MD Work Phone: [facility] Comment on above: Refill Request Start: 01-20-2024 Refill Amado zayas MD Work Phone: [facility] Comment on above: Refill Request Start: 01-18-2024 ambulatory [facility] Start: 01-18-2024 Patient encounter procedure Jessica Mckinnon MA [facility] [place] Comment on above: Population Health Na vigation Outreach (Nadeen TIJERINA Roster workbench - AWV, Care gaps, HCC gap closure - [facility]) Start: 01-13-2024 Refill Amado zayas MD Work Phone: [facility] [place] Comment on above: Refill Request Start: 12-02-2023 Refill Amado zayas MD Work Phone: [facility] Comment on above: Refill Request Start: 11-26-2023 ambulatory Amado zayas MD Work Phone: [facility] Comment on above: Allied Health Visit (Medication Adherence Outreach ) Start: 06-25-2023 End: 06-25-[address] Amado James Work Phone: [facility] Work Phone: Start: 06-25-2023 End: 06-25-[address] Amado James Work Phone: [facility] Work Phone: Start: 06-21-2023 Telephone encounter Maciel parker APRN.METALLURGIST HELPER Work Phone: [facility] Comment on above: Results Start: 06-17-2023 End: 06-17-[address] Amado James Work Phone: [facility] Work Phone: Start: 06-17-2023 End: 06-17-[address] Amado James Work Phone: [facility] Work Phone: Start: 06-14-2023 Refill Amado zayas MD Work Phone: [facility] Comment on above: Refill Request Start: 04-15-2023 End: 04-15-2023 Patient encounter procedure Amado James MD Work Phone: [facility] Comment on above: 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, without long-term current use of insulin (HCC) (Primary Dx); Essential hypertension, benign; Hyperlipidemia, unspecified hyperlipidemia type; Chronic kidney disease, stage 4 (severe) ([facility]); Congestive heart failure, unspecified HF chronicity, unspecified heart failure type ([facility]); Bilateral leg edema; H/O: GI bleed; Anemia, unspecified type; Skin lesion; Morbid obesity with body mass index of 40.0-44.9 in adult ([facility]) Start: 02-24-2023 ambulatory Amado zayas MD Work Phone: Internal Medicine [facility] Start: 01-25-2023 ambulatory Samia Mitchell [facility] Comment on above: Population Health Na vigation Outreach ([facility]) Start: 01-18-2023 Telephone encounter Amado auguste MD Work Phone: [facility] [place] Comment on above: Medication Problem Start: 12-23-2022 ambulatory Amado zayas MD Work Phone: [facility] Comment on above: Allied Health Visit (Medication Adherence Outreach/) Start: 12-14-2022 Refill Amado zayas MD Work Phone: [facility] [place] Comment on above: Refill Request Start: 10-30-2022 Telephone encounter Amado auguste MD Work Phone: [facility] [place] Comment on above: Medication Problem Start: 07-15-2022 Refill Amado zayas MD Work Phone: [facility] Comment on above: Refill Request Start: 07-14-2022 Refill Amado zayas MD Work Phone: [facility] Comment on above: Refill Request Start: 07-13-2022 End: 07-13-2022 Patient encounter procedure Amado James MD Work Phone: [facility] Comment on above: Controlled type 2 di abetes mellitus without complication, with long-term current use of insulin (HCC) (Primary Dx); Essential hypertension, benign; Stage 3b chronic kidney disease (HCC); Hyperlipidemia, unspecified hyperlipidemia type; Congestive heart failure, unspecified HF chronicity, unspecified heart failure type (HCC); SOB (shortness of breath); Bilateral leg edema; Anemia, unspecified type; H/O: GI bleed Start: 06-17-2022 Non-patient / Non-visit Dr. Breezy James Work Phone: [facility] Start: 06-17-2022 End: 06-17-[address] Amado James Work Phone: [facility] Work Phone: Start: 06-17-2022 End: 06-17-[address] Amado James Work Phone: [facility] Start: 06-03-2022 End: 06-03-[address] Amado James Work Phone: [facility] Work Phone: Start: 06-03-2022 End: 06-03-[address] Amado James Work Phone: [facility] Start: 04-07-2022 End: 04-07-2022 Patient encounter procedure Amado James MD Work Phone: [facility] Comment on above: Controlled type 2 di abetes mellitus without complication, with long-term current use of insulin (HCC) (Primary Dx); Essential hypertension, benign; Stage 3b chronic kidney disease (HCC); Hyperlipidemia, unspecified hyperlipidemia type; Congestive heart failure, unspecified HF chronicity, unspecified heart failure type ([facility]); Bilateral leg edema; SOB (shortness of breath); Anemia, unspecified type; H/O: GI bleed Start: 03-16-2022 ambulatory Samia Lear [employer] [facility] [employer] Comment on above: Population Health Na vigation Outreach ([place] [facility]) Start: 03-04-2022 ambulatory Amado zayas MD Work Phone: Internal Medicine [facility] Start: 03-02-2022 End: 03-02-[address] [facility] Start: 02-26-2022 Non-patient / Non-visit Dr. Breezy James Work Phone: [facility] Start: 02-25-2022 Non-patient / Non-visit Dr. Breezy James Work Phone: [facility] Start: 02-25-2022 Non-patient / Non-visit Dr. Breezy James Work Phone: [facility] Start: 02-24-2022 Non-patient / Non-visit Dr. Breezy James Work Phone: [facility] Start: 02-23-2022 Non-patient / Non-visit Dr. Breezy James Work Phone: [facility] Start: 02-23-2022 Non-patient / Non-visit Dr. Breezy James Work Phone: [facility] Start: 02-22-2022 Non-patient / Non-visit Dr. Breezy James Work Phone: [facility] Start: 02-22-2022 End: 02-26-2022 Evaluation and management of inpatient Dr. Amado James Work Phone: [facility] Start: 02-22-2022 Non-patient / Non-visit Dr. Breezy James Work Phone: [facility] Procedures Date Procedure Procedure Detail Performing Clinician Start: 07-06-2025 Radiologic exam chest single view Santos Jacobs DO Work Phone: Start: 07-06-2025 Blood count complete automated Santos Toney Francoiseleeann DO Work Phone: Start: 07-06-2025 Renal function panel James Emanuel DO Work Phone: Start: 07-05-2025 Glucose quantitative blood xcpt reagent strip Santos Jacobs DO Work Phone: Start: 07-05-2025 Glucose quantitative blood xcpt reagent strip Santos Jacobs DO Work Phone: Start: 07-05-2025 Glucose quantitative blood xcpt reagent strip Santos Jacobs DO Work Phone: Start: 07-05-2025 Iaad ia clostridium difficile toxin Santos Jacobs DO Work Phone: Start: 07-05-2025 Inf agent det nucleic acid clostridium amp probe Santos Reynaldo DO Work Phone: Start: 07-05-2025 Glucose quantitative blood xcpt reagent strip Santos Jacobs DO Work Phone: Start: 07-05-2025 Comprehensive metabolic panel Peter Sanders René mcgowan GROUNDMAN/LINEMAN - METALLURGIST HELPER Work Phone: Start: 07-04-2025 Glucose quantitative blood xcpt reagent strip Generic Provider Poct Start: 07-04-2025 Comprehensive metabolic panel Re resendiz MD Work Phone: Start: 07-04-2025 Hepatitis b surf antibody hbsab Lynn Powell MD Work Phone: Start: 07-04-2025 Iaad ia hepatitis b surface antigen Lynn Powell MD Work Phone: Start: 07-04-2025 Guidance for exchange of non-tunneled CV catheter of Chest Re Maciel MD Work Phone: Start: 07-03-2025 Radiologic exam chest single view Armando Redd DO Work Phone: Start: 07-03-2025 Comprehensive metabolic panel Armando mccauley DO Work Phone: Start: 07-03-2025 Ecg routine ecg w/least 12 lds trcg only w/o i&r Armando Redd DO Work Phone: Start: 07-02-2025 Comprehensive metabolic panel Re resendiz MD Work Phone: Start: 06-21-2025 Glucose quantitative blood xcpt reagent strip Sharyn Amaya MD Work Phone: Start: 06-21-2025 RF Guidance for removal of tunneled CV catheter Sharyn Amaya MD Work Phone: Start: 06-21-2025 Glucose quantitative blood xcpt reagent strip Sharyn Amaya MD Work Phone: Start: 06-21-2025 Glucose quantitative blood xcpt reagent strip Sharyn Amaya MD Work Phone: Start: 06-21-2025 Glucose quantitative blood xcpt reagent strip Sharyn Amaya MD Work Phone: Start: 06-21-2025 Comprehensive metabolic panel Sharyn Amaya MD Work Phone: Start: 06-20-2025 Glucose quantitative blood xcpt reagent strip Sharyn Amaya MD Work Phone: Start: 06-20-2025 Glucose quantitative blood xcpt reagent strip Sharyn Amaya MD Work Phone: Start: 06-20-2025 Glucose quantitative blood xcpt reagent strip Sharyn Amaya MD Work Phone: Start: 06-20-2025 Glucose quantitative blood xcpt reagent strip Sharyn Amaya MD Work Phone: Start: 06-20-2025 Comprehensive metabolic panel Robert heredia MD Work Phone: Start: 06-19-2025 Glucose quantitative blood xcpt reagent strip Sharyn Amaya MD Work Phone: Start: 06-19-2025 Glucose quantitative blood xcpt reagent strip Sharyn Amaya MD Work Phone: Start: 06-19-2025 Glucose quantitative blood xcpt reagent strip Sharyn Amaya MD Work Phone: Start: 06-19-2025 End: 06-19-2025 Comprehensive metabolic panel Robert heredia MD Work Phone: Start: 06-19-2025 Glucose quantitative blood xcpt reagent strip Sharyn Amaya MD Work Phone: Start: 06-18-2025 Glucose quantitative blood xcpt reagent strip Sharyn Amaya MD Work Phone: Start: 06-18-2025 Glucose quantitative blood xcpt reagent strip Sharyn Amaya MD Work Phone: Start: 06-18-2025 End: 06-18-2025 Comprehensive metabolic panel Robert heredia MD Work Phone: Start: 06-17-2025 Glucose quantitative blood xcpt reagent strip Robert Jimenez MD Work Phone: Start: 06-17-2025 Glucose quantitative blood xcpt reagent strip Robert Jiemnez MD Work Phone: Start: 06-17-2025 Glucose quantitative blood xcpt reagent strip Robert Jimenez MD Work Phone: Start: 06-17-2025 Glucose quantitative blood xcpt reagent strip Robert Jimenez MD Work Phone: Start: 06-17-2025 Comprehensive metabolic panel Robert heredia MD Work Phone: Start: 06-16-2025 Glucose quantitative blood xcpt reagent strip Robert Jimenez MD Work Phone: Start: 06-16-2025 Glucose quantitative blood xcpt reagent strip Robert Jimenez MD Work Phone: Start: 06-16-2025 Glucose quantitative blood xcpt reagent strip Robert Jimenez MD Work Phone: Start: 06-16-2025 End: 06-16-2025 Comprehensive metabolic panel Robert heredia MD Work Phone: Start: 06-16-2025 Glucose quantitative blood xcpt reagent strip Robert Jimenez MD Work Phone: Start: 06-15-2025 Glucose quantitative blood xcpt reagent strip Robert Jimenez MD Work Phone: Start: 06-15-2025 Glucose quantitative blood xcpt reagent strip Robert Jimenez MD Work Phone: Start: 06-15-2025 Glucose quantitative blood xcpt reagent strip Robert Jimenez MD Work Phone: Start: 06-15-2025 Comprehensive metabolic panel Robert heredia MD Work Phone: Start: 06-15-2025 Glucose quantitative blood xcpt reagent strip Robert Jimenez MD Work Phone: Start: 06-14-2025 Glucose quantitative blood xcpt reagent strip Robert Jimenez MD Work Phone: Start: 06-14-2025 End: 06-14-2025 Assay of thyroid stimulating hormone tsh Diana Ezzie GROUNDMAN/[employer]EMAN - [employer] Work Phone: Start: 06-14-2025 Ecg routine ecg w/least 12 lds trcg only w/o i&r Diana Zabala GROUNDMAN/LINEMAN - [employer] Work Phone: Start: 06-14-2025 IR CVC TUNNELED CENTRAL LINE PLACEMENT Robert Jimenez MD Work Phone: Start: 06-14-2025 Glucose quantitative blood xcpt reagent strip Robert Jimenez MD Work Phone: Start: 06-14-2025 Glucose quantitative blood xcpt reagent strip Robert Jimenez MD Work Phone: Start: 06-14-2025 Comprehensive metabolic panel Geno Waddell MD Work Phone: Start: 06-14-2025 Glucose quantitative blood xcpt reagent strip Robert Jimenez MD Work Phone: Start: 06-13-2025 Glucose quantitative blood xcpt reagent strip Robert Jimenez MD Work Phone: Start: 06-13-2025 Glucose quantitative blood xcpt reagent strip Robert Jimenez MD Work Phone: Start: 06-13-2025 Glucose quantitative blood xcpt reagent strip Robert Jimenez MD Work Phone: Start: 06-13-2025 Glucose quantitative blood xcpt reagent strip Robert Jimenez MD Work Phone: Start: 06-13-2025 End: 06-13-2025 Comprehensive metabolic panel Geno Waddell MD Work Phone: Start: 06-13-2025 Glucose quantitative blood xcpt reagent strip Robert Jimenez MD Work Phone: Start: 06-12-2025 Glucose quantitative blood xcpt reagent strip Robert Jimenez MD Work Phone: Start: 06-12-2025 Glucose quantitative blood xcpt reagent strip Robert Jimenez MD Work Phone: Start: 06-12-2025 Glucose quantitative blood xcpt reagent strip Robert Jimenez MD Work Phone: Start: 06-12-2025 IR CVC TUNNELED DIALYSIS CATHETER PLACEMENT Mi Singh APRN - METALLURGIST HELPER Work Phone: Start: 06-12-2025 End: 06-12-2025 Comprehensive metabolic panel Geno Waddell MD Work Phone: Start: 06-12-2025 Glucose quantitative blood xcpt reagent strip Raine Etienne MD Work Phone: Start: 06-11-2025 Glucose quantitative blood xcpt reagent strip Raine Etienne MD Work Phone: Start: 06-11-2025 Glucose quantitative blood xcpt reagent strip Raine Etienne MD Work Phone: Start: 06-11-2025 Glucose quantitative blood xcpt reagent strip Raine Etienne MD Work Phone: Start: 06-11-2025 End: 06-11-2025 Comprehensive metabolic panel Geno Waddell MD Work Phone: Start: 06-10-2025 Glucose quantitative blood xcpt reagent strip Raine Etienne MD Work Phone: Start: 06-10-2025 Glucose quantitative blood xcpt reagent strip Raine Etienne MD Work Phone: Start: 06-10-2025 Blood count hematocrit Tomy Hill MD Work Phone: Start: 06-10-2025 Glucose quantitative blood xcpt reagent strip Raine Etienne MD Work Phone: Start: 06-10-2025 Compatibility each unit electronic Jacky Hill MD Work Phone: Start: 06-10-2025 End: 06-10-2025 TRANSFUSE RED BLOOD CELLS Tomy Hill MD Work Phone: Start: 06-10-2025 Antibody screen GERARDO FELDER Comment on above: Performed By: #### [id number] ####Medical Di jennifer: NATALIE GARCIA ([id number])[facility] ([facility])[address] [place] [address] [facility] Start: 06-10-2025 Blood typing serologic abo Tomy Hill MD Work Phone: Start: 06-10-2025 Glucose quantitative blood xcpt reagent strip Raine Etienne MD Work Phone: Start: 06-10-2025 Comprehensive metabolic panel Geno Waddell MD Work Phone: Start: 06-10-2025 Glucose quantitative blood xcpt reagent strip Raine Etienne MD Work Phone: Start: 06-10-2025 Glucose quantitative blood xcpt reagent strip Raine Etienne MD Work Phone: Start: 06-09-2025 Glucose quantitative blood xcpt reagent strip Raine Etienne MD Work Phone: Start: 06-09-2025 Glucose quantitative blood xcpt reagent strip Raine Etienne MD Work Phone: Start: 06-09-2025 AEROBIC AND ANAEROBIC CULTURE WITH STAIN Raine Etienne MD Work Phone: Start: 06-09-2025 Culture bacterial any source anaerobic iso&id Raine Etienne MD Work Phone: Start: 06-09-2025 Glucose quantitative blood xcpt reagent strip Raine Etienne MD Work Phone: Start: 06-09-2025 Blood count hematocrit Raine Etienne MD Work Phone: Start: 06-09-2025 End: 06-09-2025 Comprehensive metabolic panel Geno Waddell MD Work Phone: Start: 06-08-2025 Glucose quantitative blood xcpt reagent strip Raine Etienne MD Work Phone: Start: 06-08-2025 Glucose quantitative blood xcpt reagent strip Raine Etienne MD Work Phone: Start: 06-08-2025 Hemodialysis Mi Singh GROUNDMAN/[employer]EMAN - [employer] Work Phone: Start: 06-08-2025 Insj non-tunneled central venous cath age 3 yr/> Carmela Francois DO Work Phone: Start: 06-08-2025 Radiologic exam chest single view Carmela Villafanamichael DO Work Phone: Start: 06-08-2025 Glucose quantitative blood xcpt reagent strip Raine Etienne MD Work Phone: Start: 06-08-2025 Glucose quantitative blood xcpt reagent strip Geno Waddell MD Work Phone: Start: 06-08-2025 End: 06-08-2025 Comprehensive metabolic panel Geno Waddell MD Work Phone: Start: 06-07-2025 Glucose quantitative blood xcpt reagent strip Geno Waddell MD Work Phone: Start: 06-07-2025 Thoracentesis needle/cath pleura w/imaging Geno Waddell MD Work Phone: Start: 06-07-2025 AEROBIC AND ANAEROBIC CULTURE WITH STAIN Geno Waddell MD Work Phone: Start: 06-07-2025 Culture bacterial any source anaerobic iso&id Geno Waddell MD Work Phone: Start: 06-07-2025 End: 06-07-2025 Lactate dehydrogenase ldh Geno Waddell MD Work Phone: Start: 06-07-2025 End: 06-07-2025 Bacteria identified in Blood by Culture Geno Waddell MD Work Phone: Start: 06-07-2025 Glucose quantitative blood xcpt reagent strip Geno Waddell MD Work Phone: Start: 06-07-2025 Comprehensive metabolic panel Sharyn Amaya MD Work Phone: Start: 06-06-2025 Glucose quantitative blood xcpt reagent strip Geno Waddell MD Work Phone: Start: 06-06-2025 Glucose quantitative blood xcpt reagent strip Geno Waddell MD Work Phone: Start: 06-06-2025 Radiologic exam chest single view Hellen Waddell MD Work Phone: Start: 06-06-2025 Respiratory pathogens DNA and RNA panel - Lower respiratory specimen by PATEL with non-probe detection Geno Waddell MD Work Phone: Start: 06-06-2025 Smr prim src gram/giemsa stain bct fungi/cell Neelima Demario GROUNDMAN/LINEMAN - [employer] Work Phone: Start: 06-06-2025 Glucose quantitative blood xcpt reagent strip Geno Waddell MD Work Phone: Start: 06-06-2025 RF Guidance for removal of tunneled CV catheter Geno Waddell MD Work Phone: Start: 06-06-2025 Cul bact xcpt urine blood/stool aerobic isol Geno Waddell MD Work Phone: Start: 06-06-2025 Glucose quantitative blood xcpt reagent strip Geno Waddell MD Work Phone: Start: 06-06-2025 Antibody screen GERARDO FELDER Comment on above: Performed By: #### [id number] ####Medical Di jennifer: NATALIE GARCIA ([id number])[facility] ([facility])[address] Start: 06-06-2025 Blood typing serologic abo Geno Waddell MD Work Phone: Start: 06-06-2025 End: 06-06-2025 Comprehensive metabolic panel Sharyn Amaya MD Work Phone: Start: 06-06-2025 Glucose quantitative blood xcpt reagent strip Geno Waddell MD Work Phone: Start: 06-05-2025 Glucose quantitative blood xcpt reagent strip Geno Waddell MD Work Phone: Start: 06-05-2025 Glucose quantitative blood xcpt reagent strip Geno Waddell MD Work Phone: Start: 06-05-2025 Glucose quantitative blood xcpt reagent strip Geno Waddell MD Work Phone: Start: 06-05-2025 Compatibility each unit electronic Omid Orona MD Work Phone: Start: 06-05-2025 Glucose quantitative blood xcpt reagent strip Grzegorz Chatterjee MD Work Phone: Start: 06-05-2025 Comprehensive metabolic panel Sharyn Amaya MD Work Phone: Start: 06-04-2025 Glucose quantitative blood xcpt reagent strip Grzegorz Chatterjee MD Work Phone: Start: 06-04-2025 Glucose quantitative blood xcpt reagent strip Grzegorz Chatterjee MD Work Phone: Start: 06-04-2025 Glucose quantitative blood xcpt reagent strip Grzegorz Chatterjee MD Work Phone: Start: 06-04-2025 Glucose quantitative blood xcpt reagent strip Grzegorz Chatterjee MD Work Phone: Start: 06-04-2025 End: 06-04-2025 Comprehensive metabolic panel Sharyn Amaya MD Work Phone: Start: 06-03-2025 Glucose quantitative blood xcpt reagent strip Grzegorz Chatterjee MD Work Phone: Start: 06-03-2025 Glucose quantitative blood xcpt reagent strip Grzegorz Chatterjee MD Work Phone: Start: 06-03-2025 Glucose quantitative blood xcpt reagent strip Grzegorz Chatterjee MD Work Phone: Start: 06-03-2025 Glucose quantitative blood xcpt reagent strip Grzegorz Chatterjee MD Work Phone: Start: 06-03-2025 Comprehensive metabolic panel Sharyn Amaya MD Work Phone: Start: 06-03-2025 Glucose quantitative blood xcpt reagent strip Grzegorz Chatterjee MD Work Phone: Start: 06-02-2025 Glucose quantitative blood xcpt reagent strip Grzegorz Chatterjee MD Work Phone: Start: 06-02-2025 Iaad ia clostridium difficile toxin Grzegorz Chatterjee MD Work Phone: Start: 06-02-2025 Inf agent det nucleic acid clostridium amp probe Grzegorz Chatterjee MD Work Phone: Start: 06-02-2025 Glucose quantitative blood xcpt reagent strip Grzegorz hCatterjee MD Work Phone: Start: 06-02-2025 Glucose quantitative blood xcpt reagent strip Grzegorz Chatterjee MD Work Phone: Start: 06-02-2025 Cyanocobalamin vitamin b-12 Grzegorz Chatterjee MD Work Phone: Start: 06-02-2025 Hepatitis b surf antibody hbsab Mi alonzo GROUNDMAN/LINEMAN - [facility] Work Phone: Start: 06-02-2025 Iaad ia hepatitis b surface antigen Mi Singh GROUNDMAN/[employer] - [facility] Work Phone: Start: 06-02-2025 Glucose quantitative blood xcpt reagent strip Grzegorz Chatterjee MD Work Phone: Start: 06-02-2025 Comprehensive metabolic panel Sharyn Amaya MD Work Phone: Start: 06-02-2025 Glucose quantitative blood xcpt reagent strip Sharyn Amaya MD Work Phone: Start: 06-01-2025 Glucose quantitative blood xcpt reagent strip Sharyn Amaya MD Work Phone: Start: 06-01-2025 End: 06-01-2025 Blood count hematocrit Omid Orona MD Work Phone: Start: 06-01-2025 End: 06-01-2025 TRANSFUSE RED BLOOD CELLS Omid artis MD Work Phone: Start: 06-01-2025 Assay of troponin quantitative Omid araya MD Work Phone: Start: 06-01-2025 Radiologic exam chest single view Omid Orona MD Work Phone: Start: 06-01-2025 Ecg routine ecg w/least 12 lds trcg only w/o i&r Omid Orona MD Work Phone: Start: 06-01-2025 Antibody screen GERARDO FELDER Comment on above: Performed By: #### [id number] ####Medical Di jennifer: NATALIE GARCIA ([id number])[facility] ([facility])[address] Start: 06-01-2025 ABO and Rh group [Type] in Blood by Confirmatory method Omid Orona MD Work Phone: Start: 06-01-2025 Basic metabolic panel calcium total Omid Orona MD Work Phone: Start: 06-01-2025 Blood typing serologic abo Omid brown MD Work Phone: Start: 02-12-2025 Carbon dioxide measurement, partial pressure Dr. Amado James MD Work Phone: Start: 02-12-2025 Gases blood o2 saturation only direct kayleigh Dr. Amado James MD Work Phone: Start: 02-12-2025 Measurement of partial pressure of oxygen in blood Dr. Amado James MD Work Phone: Start: 02-12-[address] Amado James MD Work Phone: Start: 02-12-[address] Amado James MD Work Phone: Start: 02-12-2025 Plain chest X-ray Dr. Amado James MD Work Phone: Start: 02-11-2025 Plain chest X-ray Dr. Amado James MD Work Phone: Start: 02-10-2025 Plain chest X-ray Dr. Amado James MD Work Phone: Start: 02-08-[address] Amado James MD Work Phone: Start: 02-08-2025 Measurement of occult blood in stool specimen using immunoassay Dr. Amado James MD Work Phone: Start: 02-08-[address] Amado James MD Work Phone: Start: 02-08-[address] Amado James MD Work Phone: Start: 02-08-2025 Plain chest X-ray Dr. Amado James MD Work Phone: Start: 02-08-2025 Plain chest X-ray Dr. Amado James MD Work Phone: Start: 02-08-2025 Total iron binding capacity measurement Dr. Amado James MD Work Phone: Start: 02-05-2025 Carbon dioxide measurement, partial pressure Dr. Amado James MD Work Phone: Start: 02-05-2025 Gases blood o2 saturation only direct kayleigh Dr. Amado James MD Work Phone: Start: 02-05-2025 Measurement of partial pressure of oxygen in blood Dr. Amado James MD Work Phone: Start: 02-05-[address] Amado James MD Work Phone: Start: 02-05-2025 End: 02-05-[address] Amado James MD Work Phone: Start: 02-05-[address] Amado James MD Work Phone: Start: 02-05-[address] Amado James MD Work Phone: Start: 02-05-2025 Serum inorganic phosphate measurement Dr. Amado James MD Work Phone: Start: 02-05-2025 Urnls dip stick/tablet reagent auto microscopy Dr. Amado James MD Work Phone: Start: 02-05-2025 Plain chest X-ray Dr. Amado James MD Work Phone: Start: 02-05-[address] Amado James MD Work Phone: Start: 04-10-2024 Adult depression screening assessment Amado James MD Work Phone: Start: 06-17-2022 Cardiovascular stress test using pharmacologic stress agent Dr. Amado James Work Phone: Start: 04-07-2022 Adult depression screening assessment Amado James MD Work Phone: Start: 02-26-2022 End: 02-26-[address] Amado James Work Phone: Start: 02-23-[address] Amado James Work Phone: Start: 02-22-2022 Measurement of occult blood in stool specimen using immunoassay Dr. Amado James Work Phone: Start: 02-22-2022 SARS-CoV-2 & FLU Antigen (Rapid) Dr. Criss James Work Phone: Start: 02-22-2022 Plain chest X-ray Dr. Amado James Work Phone: Start: 02-26-2021 Adult depression screening assessment Amado James MD Work Phone: Start: 08-10-2016 Mammography Amado James MD Work Phone: Start: 09-27-2013 History of placement of stent for coronary artery disease History of coronary artery stent placement Janusz SEARS Comment on above: VKS-QVO-Aadn LAD w/ 3.0 x 24 mm Promus E lement Stent and LORI-Mid OM1 w/ 2.25 x 12 mm Promus Element Stent 09/28/2013 Bacteria identified in Blood by Culture Dr. Amado James Work Phone: Measurement of occul t blood in stool specimen using immunoassay Dr. Amado James Work Phone: Viral antigen assay Dr. Amado James Work Phone: Plan of Treatment Date Care Activity Detail Author Start: 07-06-2026 Creatinine measurement Creatinine Level [facility] Start: 07-06-2026 Potassium measurement Potassium Level [facility] Start: 07-05-2026 Creatinine measurement Creatinine Level [facility] Start: 07-05-2026 Potassium measurement Potassium Level [facility] Start: 07-03-2026 Creatinine measurement Creatinine Level [facility] Start: 07-03-2026 Potassium measurement Potassium Level [facility] Start: 07-02-2026 Creatinine measurement Creatinine Level [facility] Start: 07-02-2026 Potassium measurement Potassium Level [facility] Start: 06-21-2026 Creatinine measurement [facility] Start: 06-21-2026 Potassium measurement [facility] Start: 12-18-2025 Complete blood count Hemoglobin/Hematocrit [facility] Start: 12-18-2025 Creatinine measurement Serum Creatinine [facility] Start: 12-18-2025 Hepatitis B surface antibody level LDL Cholesterol [facility] Start: 11-27-2025 Annual PCP Team Chronic Disease Visit Annual PCP Team Chronic Disease Visit [facility] Start: 09-26-2025 Annual PCP Team Chronic Disease Visit Annual PCP Team Chronic Disease Visit [facility] Start: 09-26-2025 BP Controlled (<130/80) BP Controlled (<130/80) [facility] Start: 08-31-2025 Complete blood count Hemoglobin/Hematocrit [facility] Start: 08-31-2025 Creatinine measurement Serum Creatinine [facility] Start: 08-31-2025 Hepatitis B surface antibody level LDL Cholesterol [facility] Start: 08-28-2025 Annual PCP Team Chronic Disease Visit Annual PCP Team Chronic Disease Visit [facility] Start: 08-28-2025 BP Controlled (<130/80) BP Controlled (<130/80) [facility] Start: 07-11-2025 Annual PCP Team Chronic Disease Visit Annual PCP Team Chronic Disease Visit [facility] Start: 07-11-2025 Covid-19 Vaccine ( season) Covid-19 Vaccine ( season) [facility] Comment on above: Postponed from 05/28/2024 (Declined at t his time) Start: 07-11-2025 Pneumococcal Vaccine: 50+ (3 of 3 - PCV20 or PCV21) Pneumococcal Vaccine: 50+ (3 of 3 - PCV20 or PCV21) [facility] Comment on above: Postponed from 10/25/2019 (Declined at t his time) Start: 07-11-2025 Pneumococcal Vaccine: 65+ (3 of 3 - PPSV23 or PCV20) Pneumococcal Vaccine: 65+ (3 of 3 - PPSV23 or PCV20) [facility] Comment on above: Postponed from 10/25/2015 (Declined at t his time) Start: 07-11-2025 RSV Vaccine (1 - 1-dose 75+ series) RSV Vaccine (1 - 1-dose 75+ series) [facility] Comment on above: Postponed from 2023 (Declined at t his time) Start: 07-11-2025 Shingrix Vaccine (1 of 2) Shingrix Vaccine (1 of 2) [facility] Comment on above: Postponed from 1998 (Declined at t his time) Start: 07-06-2025 Diabetic foot examination Diabetic Foot Exam [facility] Start: 07-04-2025 End: 07-03-2026 IR CVC tunneled dialysis catheter placement IR CVC tunneled dialysis catheter placement Imaging STAT Dialysis complication, subsequent encounter Expected: 07/04/2025 (Approximate), Expires: 07/03/2026 [facility] Work Phone: Comment on above: Expected: 07/04/2025 (Approximate), Expi res: 07/03/2026 Start: 06-20-2025 Hemoglobin A1c measurement HbA1C [facility] Start: 05-28-2025 COVID-19 Vaccine ( season) COVID-19 Vaccine ( season) [facility] Start: 05-28-2025 Influenza vaccination Influenza Vaccine (Season Ended) [facility] Start: 05-28-2025 [facility] Start: 05-06-2025 Annual PCP Team Chronic Disease Visit Annual PCP Team Chronic Disease Visit [facility] Start: 05-06-2025 BP Controlled (<130/80) BP Controlled (<130/80) [facility] Start: 04-15-2025 Complete blood count Hemoglobin/Hematocrit [facility] Start: 04-15-2025 Creatinine measurement Serum Creatinine [facility] Start: 04-15-2025 Hepatitis B surface antibody level LDL Cholesterol [facility] Start: 04-10-2025 Annual PCP Team Chronic Disease Visit Annual PCP Team Chronic Disease Visit [facility] Start: 04-10-2025 Anxiety Screening Anxiety Screening [facility] Start: 04-10-2025 Covid-19 Vaccine ( season) Covid-19 Vaccine () [facility] Comment on above: Postponed from 05/28/2023 (Declined at t his time) Start: 04-10-2025 Depression Screening Depression Screening [facility] Start: 03-26-2025 Influenza vaccination Influenza Vaccine (#1) [facility] Comment on above: Postponed from 05/28/2024 (Declined at t his time) Start: 03-01-2025 Hemoglobin A1c measurement HbA1C [facility] Start: 02-26-2025 End: 02-26-2025 Patient encounter procedure 02/26/2025 3:00 PM EDT Office Visit [facility] [address] [place] [id number] Amado James MD [address] [place] [address] 3 month DM follow up [facility] Comment on above: 3 month DM follow up Start: 02-12-2025 Patient referral [facility] Work Phone: Start: 02-11-2025 End: 02-12-2025 [facility] Start: 02-11-2025 [facility] Start: 02-10-2025 [facility] Start: 02-09-2025 Administration of blood product [facility] Start: 02-08-2025 End: 02-09-2025 [facility] Start: 02-08-2025 Consultation [facility] Start: 02-08-2025 Care planning and problem solving actions [facility] Start: 02-08-2025 Airway suction technique [facility] Start: 02-08-2025 [facility] Start: 02-06-2025 [facility] Start: 02-06-2025 Referral for further care [facility] Start: 02-06-2025 Wound care [facility] Start: 02-06-2025 Thyroid stimulating hormone measurement [facility] Start: 02-05-2025 End: 02-05-2025 Following clinical pathway protocol [facility] Start: 02-05-2025 Consultation for treatment [facility] Start: 02-05-2025 Application of elastic bandage [facility] Start: 02-05-2025 Elevation of affected extremity [facility] Start: 02-05-2025 Notification of physician [facility] Start: 02-05-2025 Patient education [facility] Start: 02-05-2025 Referral to flake miller wheat and oats [facility] Start: 02-05-2025 Referral to assistant producer [facility] Start: 02-05-2025 [facility] Start: 02-05-2025 Bacteria identified in Blood by Culture Blood Culture [facility] Start: 02-05-2025 Bacteria identified in Urine by Culture Urine Culture [facility] Start: 02-05-2025 Continuous pulse oximetry [facility] Start: 02-05-2025 Oxygen therapy [facility] Start: 02-05-2025 Incentive spirometry [facility] Start: 02-05-2025 Assessment of risk of venous thromboembolism [facility] Start: 02-05-2025 Insertion of catheter into peripheral vein [facility] Start: 02-05-2025 Measuring intake and output [facility] Start: 02-05-2025 Providing care according to standard [facility] Start: 02-05-2025 Referral to occupational therapist [facility] Start: 02-05-2025 Referral to service [facility] Start: 02-05-2025 Vital signs measurements [facility] Start: 02-05-2025 End: 02-05-2025 [facility] Start: 02-05-2025 Bacterial nucleic acid assay [facility] Start: 02-05-2025 Methicillin resistant Staphylococcus aureus (MRSA) DNA [Presence] in Nose by PATEL with probe detection [facility] Start: 02-05-2025 Verification routine [facility] Start: 02-05-2025 Hospital admission, emergency, from emergency room, medical nature [facility] Start: 02-05-2025 Admission procedure [facility] Start: 02-05-2025 End: 02-05-2025 [facility] Start: 02-05-2025 End: 02-05-2025 [facility] Start: 02-05-2025 Dual pressure spontaneous ventilation support [facility] Start: 02-05-2025 Patient referral to dietitian [facility] Start: 01-02-2025 End: 04-03-2025 CBC panel - Blood by Automated count COMPLETE BLOOD COUNT Lab Routine Anemia, unspecified type Expected: 01/02/2025 (Approximate), Expires: 04/03/2025 [facility] Work Phone: Comment on above: Expected: 01/02/2025 (Approximate), Expi res: 04/03/2025 Start: 01-02-2025 End: 04-03-2025 Iron and Iron binding capacity panel - Serum or Plasma IRON AND TIBC Lab Routine Anemia, unspecified type Expected: 01/02/2025 (Approximate), Expires: 04/03/2025 [facility] Comment on above: Expected: 01/02/2025 (Approximate), Expi res: 04/03/2025 Start: 12-08-2024 End: 12-08-2024 Patient encounter procedure 12/08/2024 2:45 PM EDT Office Visit [facility] [address] [place] [address] Jennifer Elizabeth, OD [address] [address] Diabetic eye exam Ophthalmology Comment on above: Diabetic eye exam Start: 11-27-2024 End: 11-27-2024 Patient encounter procedure 11/27/2024 2:00 PM EST Office Visit [facility] [place] [address] [place] [address] Rufina Soares, GROUNDMAN/LINEMAN.METALLURGIST HELPER [address] [place] [address] 2 mo follow up [facility] Comment on above: 2 mo follow up Start: 11-24-2024 End: 02-23-2025 CBC W Auto Differential panel - Blood COMPLETE BLOOD COUNT AND DIFFERENTIAL Lab Routine Chronic anemia Expected: 11/24/2024 (Approximate), Expires: 02/23/2025 [facility] Comment on above: Expected: 11/24/2024 (Approximate), Expi res: 02/23/2025 Start: 11-24-2024 End: 02-23-2025 Comprehensive metabolic 2000 panel - Serum or Plasma COMPREHENSIVE METABOLIC PANEL Lab Routine Type 2 diabetes mellitus with chronic kidney disease, with long-term current use of insulin, unspecified CKD stage (HCC) Essential hypertension, benign Hyperlipidemia, unspecified hyperlipidemia type Chronic kidney disease, stage 4 (severe) (HCC) Expected: 11/24/2024 (Approximate), Expires: 02/23/2025 [facility] Comment on above: Expected: 11/24/2024 (Approximate), Expi res: 02/23/2025 Start: 11-24-2024 End: 02-23-2025 Hemoglobin A1c in Blood HEMOGLOBIN A1C Lab Routine Type 2 diabetes mellitus with chronic kidney disease, with long-term current use of insulin, unspecified CKD stage (HCC) Expected: 11/24/2024 (Approximate), Expires: 02/23/2025 [facility] Work Phone: Comment on above: Expected: 11/24/2024 (Approximate), Expi res: 02/23/2025 Start: 11-24-2024 End: 02-23-2025 Lipid 1996 panel - Serum or Plasma LIPID PANEL BASIC Lab Routine Type 2 diabetes mellitus with chronic kidney disease, with long-term current use of insulin, unspecified CKD stage (HCC) Essential hypertension, benign Hyperlipidemia, unspecified hyperlipidemia type Expected: 11/24/2024 (Approximate), Expires: 02/23/2025 [facility] Comment on above: Expected: 11/24/2024 (Approximate), Expi res: 02/23/2025 Start: 10-16-2024 Hemoglobin A1c measurement HbA1C [facility] Start: 10-09-2024 Complete blood count Hemoglobin/Hematocrit [facility] Start: 10-09-2024 Creatinine measurement Serum Creatinine [facility] Start: 10-09-2024 Hepatitis B surface antibody level LDL Cholesterol [facility] Start: 10-06-2024 End: 01-05-2025 Microalbumin/Creatinine [Mass Ratio] in Urine ALBUMIN/CREATININE RATIO, URINE Lab Routine Type 2 diabetes mellitus with chronic kidney disease, with long-term current use of insulin, unspecified CKD stage (HCC) Expected: 10/06/2024, Expires: 01/05/2025 [facility] Work Phone: Comment on above: Expected: 10/06/2024, Expires: Start: 09-27-2024 Advance Directive Discussion Advance Directive Discussion [facility] Start: 09-27-2024 Medicare Advantage Annual Wellness Visit Medicare [facility] Annual Wellness Visit [facility] Start: 09-27-2024 [facility] Start: 09-26-2024 End: 09-26-2024 Patient encounter procedure 09/26/2024 9:40 AM EST Office Visit [facility] [place] [address] [facility] [place] [address] Amado James MD [address] [facility] [place] [address] 1 week DM follow up [facility] Comment on above: 1 week DM follow up Start: 08-28-2024 End: 08-28-2024 Patient encounter procedure 08/28/2024 2:00 PM EST Office Visit [facility] [place] [address] [facility] [place] [address] Rufina Soares, GROUNDMAN/LINEMAN.METALLURGIST HELPER [address] [place] [address] follow up [facility] for hypoglycemia [facility] Comment on above: follow up [facility] for hypoglycemia Start: 08-22-2024 End: 11-21-2024 CBC W Auto Differential panel - Blood COMPLETE BLOOD COUNT AND DIFFERENTIAL Lab Routine Anemia, unspecified type Expected: 08/22/2024 (Approximate), Expires: 11/21/2024 [facility] Comment on above: Expected: 08/22/2024 (Approximate), Expi res: 11/21/2024 Start: 08-22-2024 End: 11-21-2024 Comprehensive metabolic 2000 panel - Serum or Plasma COMPREHENSIVE METABOLIC PANEL Lab Routine Type 2 diabetes mellitus with chronic kidney disease, with long-term current use of insulin, unspecified CKD stage (HCC) Essential hypertension, benign Hyperlipidemia, unspecified hyperlipidemia type Chronic kidney disease, stage 4 (severe) (HCC) Bilateral leg edema Expected: 08/22/2024 (Approximate), Expires: 11/21/2024 [facility] Work Phone: Comment on above: Expected: 08/22/2024 (Approximate), Expi res: 11/21/2024 Start: 08-22-2024 End: 11-21-2024 Hemoglobin A1c in Blood HEMOGLOBIN A1C Lab Routine Type 2 diabetes mellitus with chronic kidney disease, with long-term current use of insulin, unspecified CKD stage (HCC) Expected: 08/22/2024 (Approximate), Expires: 11/21/2024 [facility] Comment on above: Expected: 08/22/2024 (Approximate), Expi res: 11/21/2024 Start: 08-22-2024 End: 11-21-2024 Lipid 1996 panel - Serum or Plasma LIPID PANEL BASIC Lab Routine Type 2 diabetes mellitus with chronic kidney disease, with long-term current use of insulin, unspecified CKD stage (HCC) Essential hypertension, benign Hyperlipidemia, unspecified hyperlipidemia type Expected: 08/22/2024 (Approximate), Expires: 11/21/2024 [facility] Comment on above: Expected: 08/22/2024 (Approximate), Expi res: 11/21/2024 Start: 08-21-2024 End: 08-21-2024 Patient encounter procedure 08/21/2024 2:00 PM EST Office Visit Family [facility] [address] [place], [place] [id number] Amado James MD [address] [place], [place] [id number] Discharged from [facility] 08/18/24 - wounds on BL feet [facility] Comment on above: Discharged from [facility] 08/18/24 - wounds on BL feet Start: 08-18-2024 End: 08-18-2024 Patient encounter procedure 08/18/2024 4:20 PM EST Office Visit [facility] [address] [place], [place] [phone] Amado James MD [address] [place], [place] [address] 6 week f/u Family [facility] Comment on above: 6 week f/u Start: 07-11-2024 End: 07-11-2024 Patient encounter procedure [facility] [place] Comment on above: follow up Annual Wellness - fo llow up Start: 05-28-2024 Covid-19 Vaccine ( season) Covid-19 Vaccine ( season) [facility] Start: 05-28-2024 Influenza vaccination [facility] Start: 04-15-2024 3 comp foot exam completed DIABETIC FOOT EXAM [facility] Start: 04-15-2024 ANNUAL PCP TEAM CHRONIC DISEASE VISIT ANNUAL PCP TEAM CHRONIC DISEASE VISIT [facility] Start: 04-15-2024 BP CONTROLLED (<130/80) BP CONTROLLED (<130/80) [facility] Start: 04-15-2024 COLORECTAL CANCER SCREENING COLORECTAL CANCER SCREENING [facility] Comment on above: Postponed from 1993 (Declined at t his time) Start: 04-15-2024 COVID-19 VACCINE (#1) COVID-19 VACCINE (#1) [facility] Comment on above: Postponed from 1948 (Declined at t his time) Start: 04-15-2024 Diabetic foot examination Diabetic Foot Exam [facility] Start: 04-15-2024 Mammography MAMMOGRAM [facility] Comment on above: Postponed from 08/10/2017 (Declined at t his time) Start: 04-15-2024 Pneumococcal Vaccine: 65+ (3 - PPSV23 or PCV20) Pneumococcal Vaccine: 65+ (3 - PPSV23 or PCV20) [facility] Comment on above: Postponed from 10/25/2015 (Declined at t his time) Start: 04-15-2024 Pneumococcal Vaccine: 65+ (3 of 3 - PPSV23 or PCV20) Pneumococcal Vaccine: 65+ (3 of 3 - PPSV23 or PCV20) [facility] Comment on above: Postponed from 10/25/2015 (Declined at t his time) Start: 04-15-2024 PNEUMOCOCCAL: 65+ (3 - PPSV23 or PCV20) PNEUMOCOCCAL: 65+ (3 - PPSV23 or PCV20) [facility] Comment on above: Postponed from 10/25/2015 (Declined at t his time) Start: 04-15-2024 Screening for malignant neoplasm of colon Colorectal Cancer Screening [facility] Comment on above: Postponed from 1993 (Declined at t his time) Start: 04-15-2024 SHINGRIX VACCINE (1 of 2) SHINGRIX VACCINE (1 of 2) [facility] Comment on above: Postponed from 1998 (Declined at t his time) Start: 04-10-2024 End: 04-10-2024 Patient encounter procedure 04/10/2024 6:00 PM EDT Office Visit [facility] [address] [place], [place] [id number] Amado James MD [address] [place], [place] [id number] Medicare Wellness [facility] Comment on above: Medicare Wellness Start: 04-10-2024 End: 07-10-2024 CBC panel - Blood by Automated count COMPLETE BLOOD COUNT Lab Routine Essential hypertension, benign Anemia, unspecified type Expected: 04/10/2024 (Approximate), Expires: 07/10/2024 [facility] Comment on above: Expected: 04/10/2024 (Approximate), Expi res: 07/10/2024 Start: 04-10-2024 End: 07-10-2024 Comprehensive metabolic 2000 panel - Serum or Plasma COMPREHENSIVE METABOLIC PANEL Lab Routine Type 2 diabetes mellitus with stage 3b chronic kidney disease, without long-term current use of insulin (HCC) Hyperlipidemia, unspecified hyperlipidemia type Expected: 04/10/2024 (Approximate), Expires: 07/10/2024 [facility] Work Phone: Comment on above: Expected: 04/10/2024 (Approximate), Expi res: 07/10/2024 Start: 04-10-2024 End: 07-10-2024 Hemoglobin A1c in Blood HEMOGLOBIN A1C Lab Routine Type 2 diabetes mellitus with stage 3b chronic kidney disease, without long-term current use of insulin (HCC) Expected: 04/10/2024 (Approximate), Expires: 07/10/2024 [facility] Comment on above: Expected: 04/10/2024 (Approximate), Expi res: 07/10/2024 Start: 04-10-2024 Hepatitis B surface antibody level LDL CHOLESTEROL [facility] Start: 04-10-2024 End: 07-10-2024 Lipid 1996 panel - Serum or Plasma LIPID PANEL BASIC Lab Routine Type 2 diabetes mellitus with stage 3b chronic kidney disease, without long-term current use of insulin (HCC) Hyperlipidemia, unspecified hyperlipidemia type Expected: 04/10/2024 (Approximate), Expires: 07/10/2024 [facility] Comment on above: Expected: 04/10/2024 (Approximate), Expi res: 07/10/2024 Start: 04-10-2024 SERUM CREATININE SERUM CREATININE [facility] Start: 04-08-2024 Hemoglobin A1c measurement HbA1C [facility] Start: 01-13-2024 ANNUAL PCP TEAM CHRONIC DISEASE VISIT ANNUAL PCP TEAM CHRONIC DISEASE VISIT [facility] Start: 01-13-2024 BP CONTROLLED (<130/80) BP CONTROLLED (<130/80) [facility] Start: 01-02-2024 HEMOGLOBIN/HEMATOCRIT HEMOGLOBIN/HEMATOCRIT [facility] Start: 01-02-2024 Hepatitis B screening Urine Albumin:Creatinine Ratio [facility] Start: 01-02-2024 Hepatitis B surface antibody level LDL CHOLESTEROL [facility] Start: 01-02-2024 SERUM CREATININE SERUM CREATININE [facility] Start: 10-16-2023 End: 12-16-2023 CBC W Auto Differential panel - Blood CBC + DIFF Lab Routine H/O: GI bleed Anemia, unspecified type Expected: 10/16/2023 (Approximate), Expires: 12/16/2023 [facility] Work Phone: Comment on above: Expected: 10/16/2023 (Approximate), Expi res: 12/16/2023 Start: 10-16-2023 End: 12-16-2023 Comprehensive metabolic 2000 panel - Serum or Plasma COMP METABOLIC PANEL Lab Routine Chronic kidney disease, stage 4 (severe) (HCC) Type 2 diabetes mellitus with stage 3b chronic kidney disease, without long-term current use of insulin (HCC) Hyperlipidemia, unspecified hyperlipidemia type Essential hypertension, benign Expected: 10/16/2023 (Approximate), Expires: 12/16/2023 [facility] Work Phone: Comment on above: Expected: 10/16/2023 (Approximate), Expi res: 12/16/2023 Start: 10-16-2023 End: 12-16-2023 Hemoglobin A1c in Blood HGB A1C Lab Routine Type 2 diabetes mellitus with stage 3b chronic kidney disease, without long-term current use of insulin (HCC) Expected: 10/16/2023 (Approximate), Expires: 12/16/2023 [facility] Work Phone: Comment on above: Expected: 10/16/2023 (Approximate), Expi res: 12/16/2023 Start: 10-16-2023 End: 12-16-2023 Lipid 1996 panel - Serum or Plasma LIPID PANEL BASIC Lab Routine Hyperlipidemia, unspecified hyperlipidemia type Essential hypertension, benign Expected: 10/16/2023 (Approximate), Expires: 12/16/2023 [facility] Work Phone: Comment on above: Expected: 10/16/2023 (Approximate), Expi res: 12/16/2023 Start: 10-16-2023 End: 12-16-2023 Thyrotropin [Units/volume] in Serum or Plasma TSH BLD Lab Routine Elevated TSH Expected: 10/16/2023 (Approximate), Expires: 12/16/2023 [facility] Work Phone: Comment on above: Expected: 10/16/2023 (Approximate), Expi res: 12/16/2023 Start: 10-11-2023 Hemoglobin A1c/Hemoglobin.total in Blood HBA1C [facility] Start: 09-27-2023 Advance Directive Discussion Advance Directive Discussion [facility] Start: 09-27-2023 Behavioral Health Screening Behavioral Health Screening [facility] Start: 09-27-2023 Depression Assessment Depression Assessment [facility] Start: 07-13-2023 ANNUAL PCP TEAM CHRONIC DISEASE VISIT ANNUAL PCP TEAM CHRONIC DISEASE VISIT [facility] Start: 07-06-2023 HEMOGLOBIN/HEMATOCRIT HEMOGLOBIN/HEMATOCRIT [facility] Start: 07-06-2023 Hepatitis B surface antibody level LDL CHOLESTEROL [facility] Start: 07-06-2023 SERUM CREATININE SERUM CREATININE [facility] Start: 05-28-2023 Covid-19 Vaccine () Covid-19 Vaccine () [facility] Start: 05-28-2023 Influenza vaccination [facility] Start: 04-07-2023 Adult depression screening assessment DEPRESSION SCREENING [facility] Start: 04-07-2023 ANNUAL PCP TEAM CHRONIC DISEASE VISIT ANNUAL PCP TEAM CHRONIC DISEASE VISIT [facility] Start: 04-07-2023 BP CONTROLLED (<130/80) BP CONTROLLED (<130/80) [facility] Start: 04-07-2023 COVID-19 VACCINE (#1) COVID-19 VACCINE (#1) [facility] Comment on above: Postponed from 1948 (Declined at t his time) Start: 04-02-2023 Hemoglobin A1c/Hemoglobin.total in Blood HBA1C [facility] Start: 04-02-2023 HEMOGLOBIN/HEMATOCRIT HEMOGLOBIN/HEMATOCRIT [facility] Start: 04-02-2023 Hepatitis B surface antibody level LDL CHOLESTEROL [facility] Start: 04-02-2023 SERUM CREATININE SERUM CREATININE [facility] Start: 03-26-2023 Influenza vaccination INFLUENZA (#1) [facility] Comment on above: Postponed from 05/28/2022 (Declined at t his time) Start: 2023 RSV Immunization for Adults (1 - 1-dose 75+ series) RSV Immunization for Adults (1 - 1-dose 75+ series) [facility] Start: 2023 [facility] Start: 01-11-2023 End: 03-13-2023 ALBUMIN/CREAT RATIO RND UR ALBUMIN/CREAT RATIO RND UR Lab Routine Controlled type 2 diabetes mellitus without complication, with long-term current use of insulin (HCC) Essential hypertension, benign Stage 3b chronic kidney disease (HCC) Expected: 01/11/2023 (Approximate), Expires: 03/13/2023 [facility] Work Phone: Comment on above: Expected: 01/11/2023 (Approximate), Expi res: 03/13/2023 Start: 01-11-2023 End: 03-13-2023 CBC W Auto Differential panel - Blood CBC + DIFF Lab Routine Essential hypertension, benign Stage 3b chronic kidney disease (HCC) Expected: 01/11/2023 (Approximate), Expires: 03/13/2023 [facility] Work Phone: Comment on above: Expected: 01/11/2023 (Approximate), Expi res: 03/13/2023 Start: 01-11-2023 End: 03-13-2023 Comprehensive metabolic 2000 panel - Serum or Plasma COMP METABOLIC PANEL Lab Routine Controlled type 2 diabetes mellitus without complication, with long-term current use of insulin (HCC) Essential hypertension, benign Hyperlipidemia, unspecified hyperlipidemia type Expected: 01/11/2023 (Approximate), Expires: 03/13/2023 [facility] Work Phone: Comment on above: Expected: 01/11/2023 (Approximate), Expi res: 03/13/2023 Start: 01-11-2023 End: 03-13-2023 Hemoglobin A1c in Blood HGB A1C Lab Routine Controlled type 2 diabetes mellitus without complication, with long-term current use of insulin (HCC) Expected: 01/11/2023 (Approximate), Expires: 03/13/2023 [facility] Work Phone: Comment on above: Expected: 01/11/2023 (Approximate), Expi res: 03/13/2023 Start: 01-11-2023 End: 03-13-2023 Lipid 1996 panel - Serum or Plasma LIPID PANEL BASIC Lab Routine Essential hypertension, benign Hyperlipidemia, unspecified hyperlipidemia type Expected: 01/11/2023 (Approximate), Expires: 03/13/2023 [facility] Work Phone: Comment on above: Expected: 01/11/2023 (Approximate), Expi res: 03/13/2023 Start: 10-06-2022 Hemoglobin A1c/Hemoglobin.total in Blood HBA1C [facility] Start: 10-03-2022 Hemoglobin A1c/Hemoglobin.total in Blood HBA1C [facility] Start: 09-30-2022 ANNUAL PCP TEAM CHRONIC DISEASE VISIT ANNUAL PCP TEAM CHRONIC DISEASE VISIT [facility] Start: 09-30-2022 BP CONTROLLED (<130/80) BP CONTROLLED (<130/80) [facility] Start: 09-27-2022 ADVANCE DIRECTIVE DISCUSSION ADVANCE DIRECTIVE DISCUSSION [facility] Start: 09-27-2022 DEPRESSION ASSESSMENT DEPRESSION ASSESSMENT [facility] Start: 09-22-2022 HEMOGLOBIN/HEMATOCRIT HEMOGLOBIN/HEMATOCRIT [facility] Start: 09-22-2022 Hepatitis B surface antibody level LDL CHOLESTEROL [facility] Start: 09-22-2022 SERUM CREATININE SERUM CREATININE [facility] Start: 07-08-2022 End: 09-07-2022 CBC W Auto Differential panel - Blood CBC + DIFF Lab Routine Essential hypertension, benign Stage 3b chronic kidney disease (HCC) Anemia, unspecified type Expected: 07/08/2022, Expires: 09/07/2022 [facility] Work Phone: Comment on above: Expected: 07/08/2022, Expires: 2 Start: 07-08-2022 End: 09-07-2022 Comprehensive metabolic 2000 panel - Serum or Plasma COMP METABOLIC PANEL Lab Routine Controlled type 2 diabetes mellitus without complication, with long-term current use of insulin (HCC) Essential hypertension, benign Hyperlipidemia, unspecified hyperlipidemia type Stage 3b chronic kidney disease (HCC) Expected: 07/08/2022, Expires: 09/07/2022 [facility] Work Phone: Comment on above: Expected: 07/08/2022, Expires: 2 Start: 07-08-2022 End: 09-07-2022 Hemoglobin A1c in Blood HGB A1C Lab Routine Controlled type 2 diabetes mellitus without complication, with long-term current use of insulin (HCC) Expected: 07/08/2022, Expires: 09/07/2022 [facility] Work Phone: Comment on above: Expected: 07/08/2022, Expires: 2 Start: 07-08-2022 End: 09-07-2022 Lipid 1996 panel - Serum or Plasma LIPID PANEL BASIC Lab Routine Essential hypertension, benign Hyperlipidemia, unspecified hyperlipidemia type Expected: 07/08/2022, Expires: 09/07/2022 [facility] Work Phone: Comment on above: Expected: 07/08/2022, Expires: 2 Start: 05-29-2022 3 comp foot exam completed DIABETIC FOOT EXAM [facility] Start: 05-28-2022 Influenza vaccination [facility] Start: 03-23-2022 Hemoglobin A1c/Hemoglobin.total in Blood HBA1C [facility] Start: 02-26-2022 Patient discharge [facility] Work Phone: Start: 02-26-2022 Adult depression screening assessment DEPRESSION SCREENING [facility] Start: 02-25-2022 Referral to service [facility] Work Phone: Start: 02-25-2022 Continuous pulse oximetry [facility] Work Phone: Start: 02-23-2022 Oxygen therapy [facility] Work Phone: Start: 02-22-2022 Catheterization of vein [facility] Work Phone: Start: 02-22-2022 Bacteria identified in Blood by Culture Blood Culture [facility] Work Phone: Start: 02-22-2022 Following clinical pathway protocol [facility] Work Phone: Start: 02-22-2022 Transfusion of blood product [facility] Work Phone: Start: 02-22-2022 Application of intermittent pneumatic compression device [facility] Work Phone: Start: 02-22-2022 Assessment of risk of venous thromboembolism [facility] Work Phone: Start: 02-22-2022 Care regimes management [facility] Work Phone: Start: 02-22-2022 Catheterization of vein [facility] Work Phone: Start: 02-22-2022 Chart related administrative procedure [facility] Work Phone: Start: 02-22-2022 Incentive spirometry [facility] Work Phone: Start: 02-22-2022 Inhalation therapy procedure [facility] Work Phone: Start: 02-22-2022 Insertion of catheter into peripheral vein [facility] Work Phone: Start: 02-22-2022 Measuring intake and output [facility] Work Phone: Start: 02-22-2022 Notification of physician [facility] Work Phone: Start: 02-22-2022 Providing care according to standard [facility] Work Phone: Start: 02-22-2022 Provision of activity privileges [facility] Work Phone: Start: 02-22-2022 Referral to gastroenterology service [facility] Work Phone: Start: 02-22-2022 Referral to occupational therapist [facility] Work Phone: Start: 02-22-2022 Referral to service [facility] Work Phone: Start: 02-22-2022 [facility] Work Phone: Start: 02-22-2022 Admission procedure [facility] Work Phone: Start: 02-22-2022 Administration of blood product [facility] Work Phone: Start: 02-22-2022 Patient referral to dietitian [facility] Work Phone: Start: 09-27-2021 ADVANCE DIRECTIVE DISCUSSION ADVANCE DIRECTIVE DISCUSSION [facility] Start: 10-25-2019 Pneumococcal Vaccine: 50+ Years (3 of 3 - PCV20 or PCV21) Pneumococcal Vaccine: 50+ Years (3 of 3 - PCV20 or PCV21) [facility] Start: 10-25-2019 [facility] Start: 06-03-2019 COLORECTAL CANCER SCREENING COLORECTAL CANCER SCREENING [facility] Start: 06-03-2019 FECAL OCCULT BLOOD FECAL OCCULT BLOOD [facility] Start: 06-03-2019 Screening for malignant neoplasm of colon Fecal Occult Blood [facility] Start: 03-11-2019 Glaucoma screening Dilated Retinal Exam [facility] Start: 03-11-2019 Hepatitis C antibody, confirmatory test DILATED RETINAL EXAM [facility] Start: 08-10-2017 Mammography MAMMOGRAM [facility] Start: 10-25-2015 Pneumococcal Vaccine: 65+ (3 of 3 - PPSV23 or PCV20) Pneumococcal Vaccine: 65+ (3 of 3 - PPSV23 or PCV20) [facility] Start: 10-25-2015 PNEUMOCOCCAL: 65+ (3 - PPSV23 if available, else PCV20) PNEUMOCOCCAL: 65+ (3 - PPSV23 if available, else PCV20) [facility] Start: 10-25-2015 PNEUMOCOCCAL: 65+ (3 - PPSV23 or PCV20) PNEUMOCOCCAL: 65+ (3 - PPSV23 or PCV20) [facility] Start: 12-20-2014 Pneumococcal Vaccine: 50+ Years (3 of 3 - PPSV23, PCV20 or PCV21) Pneumococcal Vaccine: 50+ Years (3 of 3 - PPSV23, PCV20 or PCV21) [facility] Start: 2008 Hepatitis B Vaccine (1 of 3 - Risk 3-dose series) Hepatitis B Vaccine (1 of 3 - Risk 3-dose series) [facility] Start: 2008 RSV Vaccine (1 - 1-dose 60+ series) RSV Vaccine (1 - 1-dose 60+ series) [facility] Start: 1998 SHINGRIX VACCINE (1 of 2) SHINGRIX VACCINE (1 of 2) [facility] Start: 1998 Zoster Vaccines (1 of 2) Zoster Vaccines (1 of 2) [facility] Start: 1998 [facility] Start: 1993 COLOGUARD (FIT-DNA) COLOGUARD (FIT-DNA) [facility] Start: 1993 Colonoscopy COLONOSCOPY [facility] Start: [address] COLONOGRAPHY [facility] Start: 1993 Screening for malignant neoplasm of colon [facility] Start: 1993 SIGMOIDOSCOPY SIGMOIDOSCOPY [facility] Start: 1968 Hepatitis B Vaccines (1 of 3 - Risk Dialysis 4-dose series) Hepatitis B Vaccines (1 of 3 - Risk Dialysis 4-dose series) [facility] Start: 1967 DTaP/Tdap/Td Vaccines (1 - Tdap) DTaP/Tdap/Td Vaccines (1 - Tdap) [facility] Start: 1967 Urine microalbumin profile [facility] Start: 1967 [facility] Start: 1966 BP CONTROLLED (<130/80) BP CONTROLLED (<130/80) [facility] Start: 1966 Hepatitis C screening [facility] Start: 1960 Depression Monitoring Depression Monitoring [facility] Start: 1960 [facility] Start: 1953 COVID-19 VACCINE (#1) COVID-19 VACCINE (#1) [facility] Start: 1948 Echocardiography Echocardiogram [facility] Start: 1948 Screening for osteoporosis [facility] Start: 1948 [facility] Anion gap in Serum o r Plasma [facility] Anion gap in Serum o r Plasma [facility] Anion gap in Serum o r Plasma [facility] Basic metabolic 2008 panel with ionized calcium - Serum or Plasma [facility] BUN/Creatinine ratio [facility] BUN/Creatinine ratio [facility] BUN/Creatinine ratio [facility] Calcium [Mass/volume ] in Serum or Plasma [facility] Calcium [Mass/volume ] in Serum or Plasma [facility] Calcium [Mass/volume ] in Serum or Plasma [facility] Carbon dioxide, tota l [Moles/volume] in Central venous blood [facility] Carbon dioxide, tota l [Moles/volume] in Central venous blood [facility] Carbon dioxide, tota l [Moles/volume] in Central venous blood [facility] Creatinine [Mass/vol ume] in Serum or Plasma [facility] Creatinine [Mass/vol ume] in Serum or Plasma [facility] Creatinine [Mass/vol ume] in Serum or Plasma [facility] Erythrocyte mean corpuscular volume determination [facility] Glucose [Mass/volume ] in Serum or Plasma [facility] Glucose [Mass/volume ] in Serum or Plasma [facility] Glucose [Mass/volume ] in Serum or Plasma [facility] Hematocrit [Volume Fraction] of Blood [facility] Hemoglobin [Mass/vol ume] in Blood [facility] Leukocytes [#/volume ] in Blood [facility] End: 03-25-2024 BUSTER SCREENING BUSTER SCREENING Radiology Routine Encounter for screening mammogram for breast cancer 1 Occurrences starting 02/24/2023 until 03/25/2024 [facility] Work Phone: Comment on above: 1 Occurrences starting 02/24/2023 until 03/25/2024 Mean corpuscular hemoglobin concentration determination [facility] Mean corpuscular hemoglobin determination [facility] Measurement of renal function [facility] Measurement of renal function [facility] Measurement of renal function [facility] Neutrophil count [facility] Neutrophil percent differential count [facility] NM Heart Views W str ess and W radionuclide IV [facility] Work Phone: NM Heart Views W str ess and W radionuclide IV [facility] Patient referral [facility] Work Phone: Platelets [#/volume] in Blood [facility] Potassium measurement [facility] Potassium measurement [facility] Potassium measurement [facility] Red blood cell count [facility] Red cell distributio n width determination [facility] End: 04-03-2023 Screening mammography bi 2-view breast inc cad BUSTER SCREENING Radiology Routine Encounter for screening mammogram for breast cancer 1 Occurrences starting 03/04/2022 until 04/03/2023 [facility] Work Phone: Comment on above: 1 Occurrences starting 03/04/2022 until 04/03/2023 Serum chloride measurement [facility] Serum chloride measurement [facility] Serum chloride measurement [facility] Sodium measurement [facility] Sodium measurement [facility] Sodium measurement [facility] Troponin T.cardiac [Mass/volume] in Serum or Plasma by High sensitivity method [facility] Troponin T.cardiac [Mass/volume] in Serum or Plasma by High sensitivity method [facility] Urea nitrogen [Mass/volume] in Serum or Plasma [facility] Urea nitrogen [Mass/volume] in Serum or Plasma [facility] Urea nitrogen [Mass/volume] in Serum or Plasma [facility] Urine culture [facility] Immunizations Immunization Date Immunization Notes Care Provider [facility] 06-03-2018 influenza virus vacc ine, unspecified formulation Amado James MD Work Phone: [facility] 10-25-2014 pneumococcal conjuga te vaccine, 13 valent Amado James MD Work Phone: [facility] 06-27-[address] Amado James Work Phone: [facility] 07-08-2010 influenza virus vacc ine, unspecified formulation Amado James MD Work Phone: [facility] 07-17-2005 influenza virus vacc ine, unspecified formulation Amado James MD Work Phone: [facility] 07-17-2005 pneumococcal polysaccharide vaccine, 23 valent Amado James MD Work Phone: [facility] 06-27-[address] Criss James Work Phone: [facility] Work Phone: 06-27-2003 pneumococcal vaccine , unspecified formulation Amado James MD Work Phone: [facility] Payers Date Payer Category Payer Medicare [id number] 2025 Unknown xx 2025 Self-pay [id number] 2024 Medicaid [id number] 2024 Medicaid [id number] 2023 Medicare HMO [id number] 2019 Medicare (Managed Care) NADEEN CASTLE PPO [id number] 2019 Unknown ANTHTONY GANN S AND BLUE SHIELD ANTHEM MEDIBLUE ACCESS [id number] 2019-Present [phone] [address] [place] [address] PPO [id number] 2019 Unknown [id number] 2019 Medicare [id number] Unknown [id number] Unknown [id number] Unknown [id number] Unknown [id number] Unknown [id number] Unknown [id number] Social History Date Type Detail Facility Start: 02-22-2022 End: 06-17-2023 Tobacco smoking status KSIS Unknown if ever smoked [facility] Start: 09-26-2013 None [facility] Start: 09-26-2013 Spouse/ Signif icant Other [facility] Start: 09-26-2013 Non-smoker [facility] Start: 1950 Sex Assigned At Female [facility] Start: 07-13-2022 End: 02-05-2025 Tobacco smoking status NHIS Ex-smoker [facility] Start: 09-30-2021 End: 11-27-2024 Alcohol intake Current non-drinker of alcohol (finding) [facility] Start: 12-31-2009 End: 07-13-2022 Tobacco Comment Quit 1980s [facility] Start: 1950 Sex Assigned At Not on file [facility] Start: 02-22-2022 End: 04-07-2022 Exposure to SARS-CoV-2 (event) Not sure [facility] Work Phone: History of tobacco use Current smoker [facility] Start: 07-13-2022 End: 06-01-2025 Tobacco use and exposure Smokeless tobacco non-user [facility] Start: 04-15-2023 End: 07-06-2025 History of Social function [facility] Work Phone: Start: 04-15-2023 End: 07-06-2025 Tobacco use panel [facility] Work Phone: Adult Depression Screening Assessment 2 [facility] Work Phone: How often to you hav e a drink containing alcohol? Never [facility] Start: 06-01-2025 Tobacco smoking status NHIS Never smoked tobacco [facility] History of tobacco use Passive smoker [facility] Within the last year , have you been afraid of your partner or ex-partner? No [facility] Start: 06-01-2025 Sex Female (finding) [facility] NEGATED: Highlighted row Not [facility] Medical Equipment Procedure Code Equipment Code Equipment Origin al Text Equipment Identifier Dates Amputation, foot AXIOFILL,500MG FDA Star t: 07-14-2024 Amputation, foot AXIOFILL,500MG FDA Star t: 07-14-2024 Amputation, foot AXIOFILL,500MG FDA Star t: 07-14-2024 [id number], [id number], [id number], [id number], [id number] Start: 08-10-2016 End: 08-28-2024 Comment on above: Test blood sugar(s) 3 times daily. Dx: 250.02. Insulin: Yes Alvina test strips. T est blood sugars once daily as directed. Dx: E11.9. Insulin: Yes Use 4 times daily to inject insulin 1 Each once daily. U SE ONE SYRINGE FOR EACH INSULIN DOSE/ 1 PER DAY Blood Sugar Diagnostic (Accu-Chek Alvina Plus Test Strp) strip Start: 07-13-2024 Blood Sugar Diagnostic (Accu-Chek Alvina Plus Test Strp) strip Start: 07-13-2024 Blood Sugar Diagnostic (Accu-Chek Alvina Plus Test Strp) strip Start: 07-13-2024 [id number] Start: 06-14-2025 Goals Date Patient Goal Desired Activity /State Functional Status Date Assessment Result Facility 02-12-2025 Functional status Bedrest [facility] Work Phone: 02-26-2022 Functional status Ambulates [facility] Work Phone: 10-25-2014 Are you deaf, or do you have serious difficulty hearing No 10/25/2014 9:39 AM Mariza Rehman MA No [facility] 10-25-2014 Are you blind, or do you have serious difficulty seeing, even when wearing glasses No 10/25/2014 9:39 AM Mariza Rehman MA No [facility] 10-25-2014 Do you have serious difficulty walking or climbing stairs No 10/25/2014 9:39 AM Mariza Rehman MA No [facility] 10-25-2014 Do you have difficul ty dressing or bathing No 10/25/2014 9:39 AM Mariza Rehman MA No [facility] 10-25-2014 Because of a physica l, mental, or emotional condition, do you have difficulty doing errands alone such as visiting a physician's office or shopping No 10/25/2014 9:39 AM Mariza Rehman MA No [facility] Mental Status Date Assessment Result Facility 02-12-2025 Cognitive function Voice/Name;Light Pain [facility] Work Phone: 02-26-2022 Cognitive function Voice/Name [facility] Work Phone: 10-25-2014 Because of a physica l, mental, or emotional condition, do you have serious difficulty concentrating, remembering, or making decisions No 10/25/2014 9:39 AM Mariza Rehman MA No [facility] Clinical Notes 09-27-2013 to 07-06-2025 Darrell Egan RN - 07/06/2025 5:28 PM Stefani Egan RN - 07/06/2025 5:28 PM Stefani Egan RN - 07/06/2025 4:06 PM Joie Prasad RN - 07/06/2025 12:10 PM EDTAnnemarie Instr - TERRA Note Date & Type Note Facility 07-06-2025 Nurse Note Pt report called to SNF , Pt care transferred to [facility] , Vitals and Pertinent medical hx and treatment reviewed. Pt transferred from bed to cot rails x 2. Vent switched from RT vent to EMS teams Vent. Pt left in EMS crews care fro transport back to SNF [facility] 07-06-2025 Nurse Note Pt report called to SNF , Pt care transferred to [facility] , Vitals and Pertinent medical hx and treatment reviewed. Pt transferred from bed to cot rails x 2. Vent switched from RT vent to EMS teams Vent. Pt left in EMS crews care fro transport back to SNF Pt is confused at baseline , pt is from a SNF pt has son who cares for her as well. Patient Name: Rosa Myers Patient : 1950 Acct: [id number] Date of Admission: 07/04/2025 Room/Bed: T2-217/T2-217 A Code Status: Full Code Allergies: Allergies[1] Diagnosis: Problem List[2] Treatment: Hemodialysis 1:1 Priority: Routine Location: ICU Diabetic: Yes NPO: Yes Isolation Precautions: Contact Consent for Treatment Verified: Yes Blood Consent Verified: Not Applicable ICEBOAT: Identify, Consent, Equipment, HepB Status, Orders Complete, Access Verified, Timeliness Second Clinician Verifying: Veda Gunn RN Time out performed prior to access at 0820. Report Received from Primary RN at 0800. Primary RN (First Initial, Last Name, Title): Thalia Egan RN Incapacitated Nurse Education Completed: Yes HBsAg ONLY: Date Drawn: July 04, 2025 Results: Negative HBsAb: Date Drawn: July 04, 2025 Results: Susceptible <10 Order Dialyzer: Nipro Na+ Modeling: Not Applicable Dialysate Temperature (C): 36 Blood Flow Rate (BFR): 400 Dialysate Flow Rate (DFR): 600 Access to be Utilized Access: Tunneled Catheter Location: Subclavian Side: Right Needle gauge: Not Applicable + Bruit/Thrill: Not Applicable First Use X-ray Verified: Not Applicable OK to use line order: Yes Site Assessment: Signs and Symptoms of Infection/Inflammation: None If yes: Not Applicable Dressing: Dry and Intact Site Prep: Medical Aseptic Technique Dressing Changed this Treatment: Yes If yes, by whom: Carl MICHELE Date of Last Dressing Change: July 06, [address]?: Yes Red Alcohol Caps in place?: Yes Gauze Dressing?: No Non-Dialysis Use?: No Comment: Flows: Good and Patent If access problem, who was notified: Pre and Post-Assessment Patient Vitals for the past 8 hrs: Bilateral Breath Sounds Abdomen Inspection Bowel Sounds (All Quadrants) Generalized Edema RUE Edema LUE Edema RLE Edema LLE Edema 07/06/25 0700 Diminished;Rhonchi Gastrostomy tube Active Non-pitting Trace Trace None None 07/06/25 0825 -- -- -- Non-pitting Trace Trace None None 07/06/25 1100 Diminished;Rhonchi Gastrostomy tube Active Non-pitting Trace Trace None None Labs Lab Results Component Value Date/Time WBC 7.8 07/06/2025 08 HGB 7.7 (L) 07/06/2025 08 HCT 24.3 (L) 07/06/2025 08 PLT 190 07/06/2025 0805 NA 136 07/06/2025 0448 K 4.0 07/06/2025 0448 CL 99 07/06/2025 0448 CO2 27 07/06/20258 BUN 64 (H) 07/06/2025447 CREATININE 3.36 (H) 07/06/2025447 CALCIUM 9.3 07/06/2025447 PHOS 3.3 07/06/2025 044 IV Drips and Rate/Dose Continuous Meds[3] Safety - Before each treatment: Dialysis Machine No.: [id number] RO Machine Number: [id number] Dialyzer Lot No.: [id number] Tubing Lot Number: [id number] [employer] Secure: Yes Venous Parameters Set: Yes Arterial Parameters Set: Yes NS Bag: Yes Saline Line Double Clamped: Yes Dialyzer: Nipro Prime Volume (mL): 250 mL RO Machine Number: [id number] RO Machine Log Sheet Completed: Yes Machine Alarm Self Test: Completed, Passed (07/06/25819) Air Foam Detector: Tested, Proper Function, pH Reading Extracorporeal Circuit Tested for Integrity: Yes Machine Conductivity: 14.3 Manual Conductivity: 14 Manual Ph: 7.2 Bleach Test (Neg): Yes Bath Temperature: 36 C (96.8 F) Conductivity Meter Serial #: [id number] Machine Functioning Alarm Free? Yes Dialysis Bath: K+ (Potassium): 3 Ca+ (Calcium): 2.5 Na+ (Sodium): 137 HCO3 (Bicarb): 32 Bicarbonate Concentrate Lot No.: [id number] Acid Concentrate Lot No.: [id number] Chlorine Testing - Before each treatment and every 4 hours: Time On: 0825 Time Off: 1155 Treatment Goal: UF 0-2 L as tolerated for SBP >85 or MAP >60, can bolus 25 g PRN IV albumin x2 doses if needed Weight Height: 165.1 cm (5' 5") (07/05/25 07) Weight: 105 kg (232 lb 5.8 oz) (07/05/25899) BMI (Calculated): 38.67 (07/05/25899) 1st check: less than 0.1 ppm at: 0805 2nd check: less than 0.1 ppm at: 1130 3rd check: Not Applicable (if greater than 0.1 ppm, then check every 30 minutes from secondary) Access Flows and Pressures Patient Vitals for the past 8 hrs: Blood Flow Rate (mL/min) Ultrafiltration Rate (ml/hr) Arterial Pressure (mmHg) Venous Pressure (mmHg) TMP DFR Access Visible Intra-Hemodialysis Comments 07/06/2525 400 mL/min 570 ml/hr -80 mmHg 100 mmHg 80 600 Yes tx initiated 07/06/2530 400 mL/min 570 ml/hr -110 mmHg 110 mmHg 80 600 Yes no HD complications, increase UF goal, 45 ml removed 07/06/25 0845 400 mL/min 720 ml/hr -140 mmHg 120 mmHg 80 600 Yes no s/s of distress, 220 ml removed 10/10/25 0900 400 mL/min 720 ml/hr -150 mmHg 120 mmHg 80 600 Yes pt resting with eyes closed, 400 ml removed 07/06/25 0915 400 mL/min 720 ml/hr -180 mmHg 120 mmHg 80 600 Yes no HD complications, 575 ml removed 07/06/25 0930 400 mL/min 720 ml/hr -210 mmHg 120 mmHg 80 600 Yes pt resting with eyes closed, 750 ml removed 07/06/25 0945 400 mL/min 710 ml/hr -220 mmHg 120 mmHg 80 600 Yes no s/s of distress, 940 ml removed 07/06/25 1000 400 mL/min 710 ml/hr -220 mmHg 120 mmHg 80 600 Yes lines secure and visible, 1100 ml removed 07/06/25 1015 400 mL/min 710 ml/hr -200 mmHg 110 mmHg 80 600 Yes no HD complications, 1275 ml removed 07/06/25 1030 400 mL/min 710 ml/hr -200 mmHg 110 mmHg 80 600 Yes pt resting with eyes closed, 1460 ml removed 07/06/25 1045 400 mL/min 710 ml/hr -200 mmHg 110 mmHg 80 600 Yes no s/s of discomfort, 1625 ml removed 07/06/25 1100 400 mL/min 710 ml/hr -190 mmHg 110 mmHg 80 600 Yes lines secure and visible, 1810 ml removed 07/06/25 1115 400 mL/min 710 ml/hr -200 mmHg 110 mmHg 80 600 Yes pt resting with eyes closed, 2015 ml remvoed 07/06/25 1119 400 mL/min 710 ml/hr -190 mmHg 110 mmHg 80 600 Yes pt alert, no voiced concerns 07/06/25 1130 400 mL/min 710 ml/hr -180 mmHg 100 mmHg 80 600 Yes no HD complications, 2160 ml removed 07/06/25 1145 400 mL/min 720 ml/hr -180 mmHg 110 mmHg 80 600 Yes no s/s of distress, 2370 ml removed 07/06/25 1155 400 mL/min 720 ml/hr -180 mmHg 110 mmHg 80 600 Yes tx complete, 2500 ml removed Vital Signs Patient Vitals for the past 24 hrs: BP Temp Temp src Pulse Resp SpO2 07/06/25 1200 (!) 116/45 36.4 C (97.6 F) -- 63 18 100 % 07/06/25 1155 (!) 120/47 -- -- 63 (!) 3 100 % 07/06/25 1145 (!) 118/45 -- -- 56 16 100 % 07/06/25 1130 (!) 112/49 -- -- 61 14 100 % 07/06/25 1119 126/77 -- -- 66 20 100 % 07/06/25 1115 (!) 109/43 -- -- 58 15 100 % 07/06/25 1100 135/54 -- -- 56 (!) 6 100 % 07/06/25 1045 (!) 116/46 -- -- 59 13 100 % 07/06/25 1030 (!) 124/47 -- -- 60 16 100 % 07/06/25 1015 120/94 -- -- 65 13 100 % 07/06/25 1000 127/55 -- -- 63 19 100 % 07/06/25 0945 (!) 126/48 -- -- 66 14 100 % 07/06/25 0930 143/69 -- -- 62 15 100 % 07/06/25 0915 136/50 -- -- 64 18 100 % 07/06/25 0900 141/52 -- -- 66 -- 100 % 07/06/25 0845 (!) 127/40 -- -- 61 -- 100 % 07/06/25 0830 122/53 -- -- 63 -- 100 % 07/06/25 0825 (!) 127/46 -- -- 61 14 100 % 07/06/25 0820 (!) 126/44 36.4 C (97.5 F) -- 58 14 100 % 07/06/25 0812 -- -- -- 67 (!) 10 100 % 07/06/25 0700 -- -- -- 62 -- -- 07/06/25 0405 -- -- -- 65 18 100 % 07/06/25 0400 146/55 37.1 C (98.8 F) Temporal 62 16 100 % 07/06/25 0020 -- -- -- 74 19 100 % 07/06/25 0000 144/55 36.4 C (97.6 F) Temporal 67 19 100 % 07/05/25 2100 (!) 100/41 -- -- 68 18 100 % 07/05/252000 -- -- -- 72 22 100 % 07/05/251999 (!) 96/32 36.3 C (97.4 F) Temporal 74 (!) 28 100 % 07/05/25 1900 (!) 114/43 -- -- 65 16 100 % 07/05/25 1800 (!) 125/48 -- -- 68 17 100 % 07/05/25 1738 (!) 145/43 -- -- 69 -- -- 07/05/25 1658 -- -- -- 69 16 100 % Post-Dialysis Arterial Catheter Locking Solution: Heparin (1000units:1ml) Volume (ml): 2.0 Venous Catheter Locking Solution: Heparin (1000units:1ml) Volume (ml): 2.1 Post-Treatment Procedures: Blood returned, Catheter capped, clamped and heparinized x 2 ports Machine Disinfection Process: Exterior Machine Disinfection Rinseback Volume (mL): 250 mL Total Liters Processed (L/min): 77.9 L/min Dialyzer Clearance: Lightly streaked Hemodialysis Intake (ml): 500 ml Hemodialysis Output (ml): 2500 ml NET Removed (ml): 2000 ml Tolerated Treatment: Good Interventions Taken: (None needed) Patient Response to Treatment: stable Physician Notified: No Patient Disposition: Remain in ICU/ED Charge: $ IP Hemodialysis Charge: Hemodialysis Provider Notification Provider Notification Reason for Communication: Abnormal Vitals (Bp 104/38 map 56) Provider Name: Dave Provider Role: Attending physician Method of Communication: Secure chat Response: Waiting for response Notification Date: 07/05/25 Notification Time: 2099 Provider Role: Attending physician Method of Communication: Secure chat Response: Waiting for response Notification Time: 2100 Handoff complete and report given to Primary RN at 1210. Primary RN (First Initial, Last Name, Title): Thalia Egan RN Education Person Educated: Patient Knowledge Base: Minimal Barriers to Learning?: None Preferred method of Learning: Oral Topic(s): Access Care and Procedural Teaching Tools: Explanation Response to Education: Verbalized Understanding [1] No Known Allergies [2] Patient Active Problem List Diagnosis Anemia Anemia, unspecified type Moderate malnutrition (CMS/HCC) (HCC) Acute metabolic encephalopathy Anxiety and depression Debility ESRD (end stage renal disease) on dialysis (HCC) [3] Patient bleeding from old IV site. Changed patient's gown, linens. Also rolled new pull pad under patient. No kinks in FMS. Patient Name: Rosa Myers Patient : 1950 Acct: [id number] Date of Admission: 07/04/2025 Room/Bed: T2217/Rust A Code Status: Full Code Allergies: Allergies[1] Diagnosis: Problem List[2] Treatment: Hemodialysis 1:1 Priority: Routine Location: ICU Diabetic: Yes NPO: Yes Isolation Precautions: Contact Consent for Treatment Verified: Yes Blood Consent Verified: Not Applicable ICEBOAT: Identify, Consent, Equipment, HepB Status, Orders Complete, Access Verified, Timeliness Second Clinician Verifying: Romana Kumar RN Time out performed prior to access at 0505. Report Received from Primary RN at 0317. Primary RN (First Initial, Last Name, Title): Romana Kumar RN Incapacitated Nurse Education Completed: Yes KT HBsAg ONLY: Date Drawn: July 04, 2025 Results: Negative HBsAb: Date Drawn: July 04, 2025 Results: Susceptible <10 Order Dialyzer: Nipro Na+ Modeling: Not Applicable Dialysate Temperature (C): 36 Blood Flow Rate (BFR): 400 Dialysate Flow Rate (DFR): 600 Access to be Utilized Access: Tunneled Catheter Location: Internal Jugular Side: Right Needle gauge: Not Applicable + Bruit/Thrill: Not Applicable First Use X-ray Verified: Yes OK to use line order: Yes Site Assessment: Signs and Symptoms of Infection/Inflammation: None If yes: Not Applicable Dressing: Dry and Intact Site Prep: Medical Aseptic Technique Dressing Changed this Treatment: No If yes, by whom: NA - not changed today Date of Last Dressing Change: July 04, [address]?: Yes Red Alcohol Caps in place?: Yes Gauze Dressing?: No Non-Dialysis Use?: No Comment: Flows: Good and Patent If access problem, who was notified: Pre and Post-Assessment Patient Vitals for the past 8 hrs: Level of Consciousness Oriented X Heart Rhythm Bilateral Breath Sounds Skin Color Skin Condition/Temp Abdomen Inspection Bowel Sounds (All Quadrants) Edema Generalized Edema RUE Edema LUE Edema RLE Edema LLE Edema Pre-Hemodialysis Comments 07/05/25 0434 Responds to voice (1) -- Regular Rhonchi Ecchymosis Warm Soft;Nondistended Active Right upper extremity;Left upper extremity;Right lower extremity;Left lower extremity +1 Trace Trace +1 +1 Patient nods her head in agreement to dialysis treament. Consent obtained by this RN. 07/05/25 0745 -- -- -- Clear -- -- Soft;Nondistended;Rounded;Gastro stomy tube Active Left upper extremity;Right lower extremity;Left lower extremity;Right upper extremity +1 Moderate Moderate +1 +1 -- 07/05/2515 Alert (0) 4 Regular Clear Ecchymosis Warm Soft;Nondistended Active Left upper extremity;Right lower extremity;Left lower extremity;Right upper extremity +1 Pitting 2mm Pitting 2mm +1 +1 -- Labs Lab Results Component Value Date/Time WBC 6.8 07/05/2025340 HGB 7.4 (L) 07/05/2025340 HCT 23.4 (L) 07/05/2025340 PLT 179 07/05/2025340 NA 132 (L) 07/05/2025340 K 4.2 07/05/2025340 CL 92 (L) 07/05/2025340 CO2 29 07/05/2025340 BUN 125 (H) 07/05/2025340 CREATININE 5.26 (H) 07/05/2025340 CALCIUM 9.7 07/05/2025340 IV Drips and Rate/Dose Continuous Meds[3] Safety - Before each treatment: Dialysis Machine No.: [id number] RO Machine Number: [id number] Dialyzer Lot No.: [id number] Tubing Lot Number: [id number] All Connections Secure: Yes Venous Parameters Set: Yes Arterial Parameters Set: Yes NS Bag: Yes Saline Line Double Clamped: Yes Dialyzer: Nipro Prime Volume (mL): 200 mL RO Machine Number: [id number] RO Machine Log Sheet Completed: Yes Machine Alarm Self Test: Completed, Passed (The machine passed all tests at 0417.) (07/05/25 0434) Air Foam Detector: Tested, Proper Function Extracorporeal Circuit Tested for Integrity: Yes Machine Conductivity: 14.3 Manual Conductivity: 14.4 Manual Ph: 7.2 Bleach Test (Neg): Yes Bath Temperature: 36 C (96.8 F) Conductivity Meter Serial #: [id number] Machine Functioning Alarm Free? Yes Dialysis Bath: K+ (Potassium): 3 Ca+ (Calcium): 2.5 Na+ (Sodium): 137 HCO3 (Bicarb): 32 Chlorine Testing - Before each treatment and every 4 hours: Time On: 0510 Time Off: 0810 Treatment Goal: 1L Weight Height: 165.1 cm (5' 5") (07/05/25703) Weight: 105 kg (232 lb 5.8 oz) (07/05/25899) BMI (Calculated): 38.67 (07/05/25899) 1st check: less than 0.1 ppm at: 0417 2nd check: less than 0.1 ppm at: 0615 3rd check: Not Applicable (if greater than 0.1 ppm, then check every 30 minutes from secondary) Access Flows and Pressures Patient Vitals for the past 8 hrs: Blood Flow Rate (mL/min) Ultrafiltration Rate (ml/hr) Arterial Pressure (mmHg) Venous Pressure (mmHg) TMP DFR Access Visible Intra-Hemodialysis Comments 07/05/25 0510 200 mL/min 500 ml/hr -60 mmHg 60 mmHg 50 600 Yes Treatment initiated as ordered. All lines secured, bed in lowest and locked position, and call light is within reach 07/05/25 0515 400 mL/min 500 ml/hr -70 mmHg 90 mmHg 90 600 Yes BFR to 400 07/05/25 0530 400 mL/min 500 ml/hr -90 mmHg 100 mmHg 90 600 Yes Patient resting. UF Removed- 210 07/05/25 0545 400 mL/min 500 ml/hr -100 mmHg 100 mmHg 80 600 Yes Patient resting. UF Removed- 316 07/05/25 0600 400 mL/min 500 ml/hr -110 mmHg 100 mmHg 90 600 Yes Primary RN at bedside for trach/vent management. UF Removed- 436 07/05/25 0615 400 mL/min 500 ml/hr -100 mmHg 110 mmHg 90 600 Yes Primary RN at bedside for trach/vent management. UF Removed- 544 07/05/25 0630 400 mL/min 500 ml/hr -110 mmHg 110 mmHg 90 600 Yes Patient resting. UF Removed- 673 07/05/25 0645 400 mL/min 500 ml/hr -110 mmHg 110 mmHg 80 600 Yes Patient reminded not to attempt to remove CVC dressing. Dressing reinforced by this RN. UF Removed- 825 07/05/25 0700 400 mL/min 500 ml/hr -110 mmHg 100 mmHg 80 600 Yes Bicarb changed. UF Removed- 905 07/05/25 0715 400 mL/min 500 ml/hr -110 mmHg 110 mmHg 80 600 Yes Patient resting. UF Removed- 1029 07/05/25 0730 400 mL/min 500 ml/hr -110 mmHg 110 mmHg 90 600 Yes Patient resting. UF Removed- 1145 07/05/25 0745 400 mL/min 500 ml/hr -140 mmHg 130 mmHg 90 600 Yes Primary RN at bedside. UF Removed- 1284 07/05/25 0800 400 mL/min 500 ml/hr -110 mmHg 110 mmHg 80 600 Yes Patient resting, UF Removed- 1406 07/05/25 0810 0 mL/min 0 ml/hr -- -- -- 0 Yes Treatment completed as ordered and blood returned to patient per policy. UF Removed- 1500 Vital Signs Patient Vitals for the past 24 hrs: BP Temp Temp src Pulse Resp SpO2 Height Weight 07/05/25908 124/98 -- -- 66 -- -- -- -- 07/05/25899 124/98 -- -- 66 15 100 % -- 105 kg (232 lb 5.8 oz) 07/05/25814 (!) 112/45 -- -- 64 18 100 % -- -- 07/05/2510 (!) 123/42 -- -- 67 21 100 % -- -- 07/05/25799 99/87 -- -- 64 15 100 % -- -- 07/05/2545 (!) 86/64 36.3 C (97.3 F) Temporal 65 16 100 % -- -- 07/05/25729 (!) 113/44 -- -- 59 15 100 % -- -- 07/05/25 0715 104/76 -- -- 62 13 100 % -- -- 07/05/25 0704 -- -- -- -- -- -- 1.651 m (5' 5") -- 07/05/25 07 (!) 124/44 -- -- 63 18 100 % -- -- 07/05/25 0645 101/64 -- -- 61 (!) 8 100 % -- -- 07/05/25 0630 105/54 -- -- 61 14 100 % -- -- 07/05/2515 91/68 -- -- 65 17 100 % -- -- 07/05/25 0603 -- -- -- 62 -- 100 % -- -- 07/05/25599 (!) 117/48 -- -- 64 13 100 % -- 105 kg (232 lb 9.4 oz) 07/05/25 0545 (!) 111/47 -- -- 63 (!) 5 100 % -- -- 07/05/25 0530 109/52 -- -- 62 (!) 6 100 % -- -- 07/05/25 0515 110/51 -- -- 63 (!) 10 100 % -- -- 07/05/25 0510 105/51 -- -- 61 (!) 8 100 % -- -- 07/05/25 0505 -- -- -- 63 (!) 0 100 % -- -- 07/05/25 0500 -- -- -- 65 15 100 % -- -- 07/05/25 0434 (!) 133/49 -- -- 62 13 100 % -- -- 07/05/25 0312 -- -- -- 61 16 100 % -- -- 07/05/25 0200 -- -- -- 59 14 100 % -- -- 07/05/25 0100 -- -- -- 62 14 100 % -- -- 07/05/25 0000 -- -- -- 71 13 100 % -- -- 07/04/256 -- -- -- 65 20 100 % -- -- 07/04/25 230 -- -- -- 67 14 100 % -- -- 07/04/25 2257 159/62 -- -- 70 19 100 % -- -- 07/04/25 2231 (!) 123/45 -- -- 64 17 100 % -- -- 07/04/25 2142 (!) 110/52 -- -- 65 17 100 % -- -- 07/04/25 2041 -- -- -- 66 22 100 % -- -- 07/04/25 1812 (!) 144/54 -- -- 64 16 100 % -- -- 07/04/25 1609 -- 36.3 C (97.4 F) Axillary -- -- -- -- -- 07/04/25 1606 (!) 131/66 -- -- 72 14 100 % -- -- Post-Dialysis Arterial Catheter Locking Solution: Heparin (1000units:1ml) Volume (ml): 2 Venous Catheter Locking Solution: Heparin (1000units:1ml) Volume (ml): 2.1 Post-Treatment Procedures: Catheter capped, clamped and heparinized x 2 ports, Blood returned (Red CUROS Caps) Machine Disinfection Process: Acid/Vinegar Clean, Heat Disinfect, Exterior Machine Disinfection Rinseback Volume (mL): 300 mL Total Liters Processed (L/min): 69 L/min Dialyzer Clearance: Clear Hemodialysis Intake (ml): 500 ml Hemodialysis Output (ml): 1500 ml NET Removed (ml): 1000 ml Tolerated Treatment: Fair Interventions Taken: (None needed) Patient Response to Treatment: Stable Physician Notified: Yes Patient Disposition: Remain in ICU/ED Charge: $ IP Hemodialysis Charge: Hemodialysis Provider Notification Handoff complete and report given to Primary RN at 0815. Primary RN (First Initial, Last Name, Title): Carlos Kent RN Education Person Educated: Patient Knowledge Base: Substantial Barriers to Learning?: None Preferred method of Learning: Oral Topic(s): Emergency and Procedural Teaching Tools: Explanation Response to Education: Verbalized Understanding [1] No Known Allergies [2] Patient Active Problem List Diagnosis Anemia Anemia, unspecified type Moderate malnutrition (CMS/HCC) (HCC) Acute metabolic encephalopathy Anxiety and depression Debility ESRD (end stage renal disease) on dialysis (HCC) [3] This RN reached out to Dr. Powell regarding the patient's diastolic blood pressure being less than [address] Powell stated that the patient is okay for treatment as long as her MAP is greater than 60. If her MAP is less than 60, the dialysis treatment is to be terminated. This RN read back the order to Dr. Powell and he confirmed. documented in this encounter [facility] 07-06-2025 Nurse Note Pt is confused at baseline , pt is from a SNF pt has son who cares for her as well. [facility] 07-06-2025 History of Presen t illness Narrative Images from the original note were not included. NEPHROLOGY PROGRESS NOTE PATIENT NAME: Rosa Myers ROOM: T2-217/T2-217 A SERVICE DATE: 07/06/2025 SERVICE TIME: 3:11 PM LENGTH OF STAY: 2 day(s) REFERRING PHYSICIAN: Santos Jacobs DO PRIMARY CARE PHYSICIAN: No primary care provider on file. OUTPATIENT LOGISTICS PLANNING ENGINEER: [facility] (Dr. Loredo) Subjective/HPI Patient was seen and examined this afternoon following her HD session, and she was resting on evaluation and appeared to be in no acute distress. She completed a 3 hour 30 minute HD session this morning with 2 L UF. There are plans for discharge back to her facility this evening. Objective Physical Exam Patient Vitals for the past 24 hrs: BP Temp Temp src Pulse Resp SpO2 07/06/25 1309 -- -- -- 67 21 100 % 07/06/25 1254 -- -- -- 60 15 100 % 07/06/25 1200 (!) 116/45 36.4 C (97.6 F) -- 63 18 100 % 07/06/25 1155 (!) 120/47 -- -- 63 (!) 3 100 % 07/06/25 1145 (!) 118/45 -- -- 56 16 100 % 07/06/25 1130 (!) 112/49 -- -- 61 14 100 % 07/06/25 1119 126/77 -- -- 66 20 100 % 07/06/25 1115 (!) 109/43 -- -- 58 15 100 % 07/06/25 1100 135/54 -- -- 56 (!) 6 100 % 07/06/25 1045 (!) 116/46 -- -- 59 13 100 % 07/06/25 1030 (!) 124/47 -- -- 60 16 100 % 07/06/25 1015 120/94 -- -- 65 13 100 % 07/06/25 1000 127/55 -- -- 63 19 100 % 07/06/25 0945 (!) 126/48 -- -- 66 14 100 % 07/06/25 0930 143/69 -- -- 62 15 100 % 07/06/25 0915 136/50 -- -- 64 18 100 % 07/06/25 0900 141/52 -- -- 66 -- 100 % 07/06/25 0845 (!) 127/40 -- -- 61 -- 100 % 07/06/25 0830 122/53 -- -- 63 -- 100 % 07/06/25 0825 (!) 127/46 -- -- 61 14 100 % 07/06/25 0820 (!) 126/44 36.4 C (97.5 F) -- 58 14 100 % 07/06/25 0812 -- -- -- 67 (!) 10 100 % 07/06/25 0700 -- -- -- 62 -- -- 07/06/25 0405 -- -- -- 65 18 100 % 07/06/25 0400 146/55 37.1 C (98.8 F) Temporal 62 16 100 % 07/06/25 0020 -- -- -- 74 19 100 % 07/06/25 0000 144/55 36.4 C (97.6 F) Temporal 67 19 100 % 07/05/25 2100 (!) 100/41 -- -- 68 18 100 % 07/05/252000 -- -- -- 72 22 100 % 07/05/251999 (!) 96/32 36.3 C (97.4 F) Temporal 74 (!) 28 100 % 07/05/25 1900 (!) 114/43 -- -- 65 16 100 % 07/05/25 1800 (!) 125/48 -- -- 68 17 100 % 07/05/25 1738 (!) 145/43 -- -- 69 -- -- 07/05/25 1658 -- -- -- 69 16 100 % I/Os: Intake/Output Summary (Last 24 hours) at 07/06/2025 1511 Last data filed at 07/06/2025 1200 Gross per 24 hour Intake 1499 ml Output 100 ml Net 1399 ml Weight: Weight on Admission: 105 kg (232 lb 9.4 oz) Wt Readings from Last 5 Encounters: 07/05/25 105 kg (232 lb 5.8 oz) 07/03/25 108 kg (237 lb 9.6 oz) 06/11/25 104 kg (229 lb 0.9 oz) General: NAD, pleasant, cooperative Head: normocephalic, atraumatic Eyes: EOMI, sclera are anicteric ENT: hearing intact to spoken voice, mucus membranes are moist, s/p trach Cardiovascular: +S1 & S2 sounds, regular rate and rhythm with no murmurs/rubs/gallops, there is no LE edema Pulmonary: lungs are with coarse breath sounds Gastrointestinal: abdomen is soft, non-tender, obese Neurological: arousable Skin: warm and dry, without rash to forehead, with RIJ HDTC in place Recent Labs: Recent Labs 07/04/25 1634 07/05/25 0341 07/06/25 0805 WBC 7.4 6.8 7.8 HGB 7.9* 7.4* 7.7* HCT 24.7* 23.4* 24.3* MCV 84.6 85.7 86.8 PLT 171 179 190 Lab Results Component Value Date IRON 31 (L) 06/10/2025 TIBC 188 (L) 06/10/2025 FERRITIN 613 (H) 06/02/2025 Lab Results Component Value Date [id number] 1,032 (H) 06/02/2025 FOLATE 12.6 06/02/2025 Recent Labs 07/04/25 1634 07/05/25 0341 07/06/25 0448 NA 132* 132* 136 K 4.7 4.2 4.0 CL 91* 92* 99 CO2 29 29 27 BUN 106* 125* 64* CREATININE 4.92* 5.26* 3.36* GLUCOSE 125* 97 89 CALCIUM 9.9 9.7 9.3 PHOS -- -- 3.3 ANIONGAP 12 11 10 ALBUMIN 2.5* 2.5* 2.6* No results found for: "PTH", "VITD25", "CAION" Lab Results Component Value Date ALT 21 07/05/2025 AST 32 07/05/2025 No results for input(s): "INR", "PROTIME", "PTT" in the last 72 hours. No results for input(s): "COLORU", "CLARITYU", "PH", "PHUR", "LABSPEC", "GLUCOSEU", "BLOODU", "LEUKOCYTESUR", "NITRITE", "BILIRUBINUR", "UROBILINOGEN", "BACTERIA", "AMORPHOUS", "CASTS" in the last 72 hours. No lab exists for component: "PROTEINUA", "KEYTONESU", "RBCUA", "WBCUA", "CRYSTAL" No results for input(s): "NAUR", "KUR", "CLUR" in the last 72 hours. No lab exists for component: "CO2UR", "CRUR" No results found for: "HEPBCAB", HEPCAB Current Inpatient Medications: Scheduled Meds[1] Continuous Meds[2] Assessment Rosa Myers is a 75 y.o. female with PMHx significant for ESRD on HD per Wednesday through Wednesday schedule at [facility], HTN, HLD, CHF, chronic respiratory failure s/p trach/PEG, DM type 2, neuropathy, history of C. difficile colitis, anxiety, depression, morbid obesity who presented with malfunctioning of her RI HDTC and was admitted for dialysis following replacement of her tunneled line. Nephrology is following for the provision of inpatient dialysis. Plan ESRD on HD per Wednesday through Wednesday schedule at [facility] - patient typically dialyzes per a Wednesday through Wednesday schedule - will plan to dialyze per a MWF schedule while as an inpatient - s/p 3 hour 30 minute HD treatment today as below: [id number] Na 137 K 3 Ca 2.5 HCO3 32 Qb: 400 mL/min Qd: 600 mL/min UF 0-2 L as hemodynamics tolerate - follow chemistries - dose adjust medications to CrCl <10 CKD-MBD - calcium acceptable - phosphate acceptable - follow chemistries Anemia - Hgb is low and below goal - transfusion parameters per primary service - IV EPO 2,600 units with HD sessions - follow CBC Lytes - stable - follow chemistries Acid base - stable - follow chemistries Volume/blood pressure - recent blood pressures are decreased - carvedilol 3.125 mg BID - midodrine 10 mg TID Access - HDTC Thank you again for allowing us to participate in the care of Ms. Myers. Please text/call/page with any questions or concerns. SIGNATURE: James Emanuel DO PATIENT NAME: Rosa Myers ROOM: T2/T2 A DATE: July 06, 2025 TIME: 3:11 PM PAGER: [phone] OFFICE: [phone] [1] albuterol, 2.5 mg, Nebulization, TID atorvastatin, 40 mg, Per G Tube, Nightly busPIRone, 5 mg, Per G Tube, TID carvedilol, 3.125 mg, Per G Tube, BID WC epoetin alpha-epbx, 2,600 Units, IntraVENous, Once per day on Wednesday FLUoxetine, 20 mg, Per G Tube, Daily insulin glargine, 25 Units, SubCUTAneous, BID insulin lispro, 0-12 Units, SubCUTAneous, TID WC And insulin lispro, 0-12 Units, SubCUTAneous, Nightly miconazole, , Topical, BID midodrine, 10 mg, Per G Tube, TID mupirocin, , Topical, TID sodium chloride 0.9%, 5-40 mL, IntraVENous, q12h [2] [facility] Respiratory Care Department Progress Note Spontaneous Awakening Trial Wean Screen SpO2>/=88%: Yes (07/06/25404) FiO2</=50%: Yes (07/06/25404) PEEP </=8cmH2O: Yes (07/06/25404) HR <140 BPM: Yes (07/06/25404) RR </= 35 breaths/min: Yes (07/06/25404) MAP >/= 65mmHg: Yes (07/06/25404) Arterial pH >7.30: Yes (07/06/25404) Safety Screen Spontaneous Breathing Trial (SBT - RT) : SBT Held - Chronic Ventilator Dependent (07/06/25404) Spontaneous Breathing Trial Vent Settings Vent Mode: Assist control (07/06/25399) Mandatory Type: VC+ (07/06/25399) Resp Rate (Set): 14 (07/04/251554) Vt (Set, mL): 420 mL (07/04/251554) FiO2 (%): 50 % (07/06/25399) PEEP/CPAP (cm H2O): 8 cm H20 (07/04/251554) Inspiratory Time (sec): 0.9 sec (07/04/251554) Vitals MAP (mmHg): 80 (07/06/25399) Heart Rate: 63 (07/06/251199) Resp: 18 (07/06/25 1200) SpO2: 100 % (07/06/251199) Suctioning/Secretions Secretion Amount: Moderate (07/05/251529) Secretion Color: White, Villegas (07/05/251529) Secretion Consistency: Thick (07/05/251529) ABG results No results for input(s): "PHART", "ZSM4OCE", "PO2ART", "KYU0VQP", "SO2ART", "L6QWCFTZ" in the last 72 hours. Does this patient meet criteria for termination of mechanical ventilation No - Chronic Vent Dependent Name of physician notified via secure chat or in person : n/a (NA if patient did not meet criteria) Comments: Chronic vent now wean done. Thank you for involving Respiratory in the care of this patient, Hospitalist Progress Note 07/05/2025 Subjective: Admit Date: 07/04/2025 PCP: No primary care provider on file. Room#: T2-217/T2-217 A BRIEF HOSPITAL COURSE: This is a 75-year-old female with past medical history of hypertension, hyperlipidemia, DM2, ESRD on hemodialysis M/W/F, vent dependent trach and PEG who presents with concerns of incomplete dialysis. The facility had been having issues using the dialysis catheter but a new 1 was placed on 07/04. Interval History: Patient seen and examined. Chart reviewed. No overnight issues. She is able to mouth responses and is ANO x 3. Denies any fevers, chills, chest pain, cough, shortness of breath, abdominal pain, nausea or vomiting. She has been having diarrhea. + Generalized weakness. Case and plan discussed with patient and bedside nurse. All questions answered. NPO diet without enteral medications 24HR INTAKE/OUTPUT: Intake/Output Summary (Last 24 hours) at 07/05/2025 1250 Last data filed at 07/05/2025 0815 Gross per 24 hour Intake 300 ml Output 200 ml Net 100 ml Past Medical History: Medical History[1] LABS: CBC: Recent Labs 07/03/25 1351 07/04/25 1634 07/05/25 0341 WBC 7.3 7.4 6.8 RBC 2.94* 2.92* 2.73* HGB 8.0* 7.9* 7.4* HCT 25.1* 24.7* 23.4* MCV 85.4 84.6 85.7 RDW 19.6* 19.6* 19.6* PLT 197 171 179 BMP: Recent Labs 07/03/25 1351 07/04/25 1634 07/05/25 0341 NA 134* 132* 132* K 3.9 4.7 4.2 CL 92* 91* 92* CO2 30 29 29 BUN 88* 106* 125* CREATININE 4.14* 4.92* 5.26* GLUCOSE 118* 125* 97 CALCIUM 10.1* 9.9 9.7 ANIONGAP 12 12 11 LIVER PROFILE: Recent Labs 07/03/25 1351 07/04/25 1634 07/05/25 0341 AST 39* 40* 32 ALT 25 36* 21 BILITOT 0.5 0.6 0.6 ALKPHOS 135 134 121 PROT 6.8 6.7 6.5 PT/INR: No results for input(s): "PROTIME", "INR" in the last 72 hours. CARDIAC ENZYMES: No results for input(s): "TROPONINI" in the last 72 hours. Procalcitonin: No results found for: "PROCAL" COVID-19 PCR: No results for input(s): "COVID19" in the last 72 hours. Objective: Vitals: BP 137/61 (BP Location: Left arm, Patient Position: Lying) Pulse 61 Temp 36.4 C (97.6 F) (Temporal) Resp 14 Ht 5' 5" (1.651 m) Wt 232 lb 5.8 oz (105 kg) SpO2 100% BMI 38.67 kg/m Pulse Ox: SpO2 Av % Min: 100 % Max: 100 % Supplemental O2: Physical Exam Constitutional: General: She is not in acute distress. Appearance: She is obese. Comments: +chronically ill-appearing HENT: Head: Normocephalic and atraumatic. Mouth/Throat: Mouth: Mucous membranes are moist. Eyes: Extraocular Movements: Extraocular movements intact. Conjunctiva/sclera: Conjunctivae normal. Cardiovascular: Rate and Rhythm: Normal rate and regular rhythm. Pulmonary: Effort: Pulmonary effort is normal. Comments: +diminished BS's Abdominal: General: There is no distension. Palpations: Abdomen is soft. Tenderness: There is no abdominal tenderness. Genitourinary: Comments: +FMS Musculoskeletal: General: No swelling. Skin: General: Skin is warm and dry. Neurological: Mental Status: She is alert and oriented to person, place, and time. Comments: +globally weak Psychiatric: Mood and Affect: Mood normal. Judgment: Judgment normal. Medications: Scheduled PRN Scheduled Meds[2] PRN Meds[3] Continuous Continuous Meds[4] Assessment Plan ESRD on hemodialysis -Received dialysis this morning -Usual schedule is M/W/F -Nephrology following Trach and vent dependent -RT following Recent pneumonia -Stop Levaquin -Patient with no cough and diarrhea possibly with antibiotic contributing -Prolonged QT and should not be on Levaquin -Currently denies cough and monitor off antibiotic DM2 with hyperglycemia -Continue Lantus 25 units twice a day -SSI -Check blood sugar POCT with meals and at bedtime to monitor for hypoglycemia -Hypoglycemia protocol Diarrhea -C. difficile positive but toxin negative -suspect colonization Dysphagia -has PEG tube -Continue tube feeds Hyperlipidemia -Continue Lipitor 40 mg per G-tube nightly Anemia-normocytic, no signs of active bleeding Hyponatremia-mild, expect improvement with dialysis Depression Anxiety -Continue Prozac 20 mg per G-tube daily -Continue buspirone 5 mg per G-tube 3 times a day Advance Directive: Full Code Anticipated Discharge - Date - DC [facility] 07/06 Extended Emergency Contact Information Primary Emergency Contact: Marcell Myers Mobile Relation: Son Weatherization Installer needed? No Santos Jacobs DO Division of Hospitalist Medicine [facility] [1] Past Medical History: Diagnosis Date Anxiety Depression Diabetes (HCC) Respiratory failure (HCC) [2] atorvastatin, 40 mg, Per G Tube, Nightly busPIRone, 5 mg, Per G Tube, TID carvedilol, 3.125 mg, Per G Tube, BID WC FLUoxetine, 20 mg, Per G Tube, Daily insulin glargine, 25 Units, SubCUTAneous, BID insulin lispro, 0-12 Units, SubCUTAneous, TID WC And insulin lispro, 0-12 Units, SubCUTAneous, Nightly miconazole, , Topical, BID midodrine, 10 mg, Per G Tube, TID mupirocin, , Topical, TID sodium chloride 0.9%, 5-40 mL, IntraVENous, q12h [3] PRN medications: acetaminophen OR acetaminophen, dextrose, dextrose, glucagon (rDNA), glucose, heparin, heparin, ondansetron ODT OR ondansetron, polyethylene glycol (PEG) 3350, sodium chloride, sodium chloride 0.9% [4] [facility] Respiratory Care Department Progress Note Spontaneous Awakening Trial Wean Screen SpO2>/=88%: Yes (07/05/25602) FiO2</=50%: Yes (07/05/25602) PEEP </=8cmH2O: Yes (07/05/25602) HR <140 BPM: Yes (07/05/25602) RR </= 35 breaths/min: Yes (07/05/25602) MAP >/= 65mmHg: Yes (07/05/25602) Arterial pH >7.30: (NA) (07/05/25602) Safety Screen Spontaneous Breathing Trial (SBT - RT) : SBT Held - Chronic Ventilator Dependent (07/05/25602) Spontaneous Breathing Trial Vent Settings Vent Mode: Assist control (07/05/25999) Mandatory Type: VC+ (07/05/25999) Resp Rate (Set): 14 (07/04/251554) Vt (Set, mL): 420 mL (07/04/251554) FiO2 (%): 50 % (07/05/25999) PEEP/CPAP (cm H2O): 8 cm H20 (07/04/251554) Inspiratory Time (sec): 0.9 sec (07/04/251554) Vitals MAP (mmHg): 65 (07/05/25999) Heart Rate: 66 (07/05/25999) Resp: 17 (07/05/25999) SpO2: 100 % (07/05/25999) Suctioning/Secretions Secretion Amount: Large (07/05/25744) Secretion Color: White (07/05/25744) Secretion Consistency: Thin (07/05/25744) ABG results No results for input(s): "PHART", "LFH4IJT", "PO2ART", "FBN9QGW", "SO2ART", "[id number]" in the last 72 hours. Does this patient meet criteria for termination of mechanical ventilation No - Chronic Vent Dependent Name of physician notified via secure chat or in person : n/a (NA if patient did not meet criteria) Comments: Thank you for involving Respiratory in the care of this patient, [facility] Respiratory Care Department Progress Note Spontaneous Awakening Trial Wean Screen Spontaneous Breathing Trial Vent Settings Vent Mode: Assist control (07/04/251554) Mandatory Type: VC+ (07/04/251554) Resp Rate (Set): 14 (07/04/251554) Vt (Set, mL): 420 mL (07/04/251554) FiO2 (%): 70 % (07/04/25 160) PEEP/CPAP (cm H2O): 8 cm H20 (07/04/251554) Inspiratory Time (sec): 0.9 sec (07/04/251554) Vitals MAP (mmHg): 80 (07/04/25 160) Heart Rate: 72 (07/04/25 160) Resp: 14 (07/04/251605) SpO2: 100 % (07/04/251605) Suctioning/Secretions Secretion Amount: Small (07/04/251554) Secretion Color: White (07/04/251554) Secretion Consistency: Thick (07/04/251554) ABG results No results for input(s): "PHART", "VTS4CKD", "PO2ART", "ZCK2ZPL", "SO2ART", "R4AMZFWW" in the last 72 hours. Does this patient meet criteria for termination of mechanical ventilation No - Chronic Vent Dependent Name of physician notified via secure chat or in person : NA (NA if patient did not meet criteria) Comments: Thank you for involving Respiratory in the care of this patient, documented in this encounter [facility] 07-06-2025 Progress note Formatting of t his note might be different from the original. Case Management Discharge Summary Note Who you talked to: Name: Marcell Myers No answer, left HIPAA compliant VMJuan Marcell was aware patient would likely discharge today back to SNF. 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 CM anticipates no copay for transport as joão has dual MCR and JOON. [facility] 07-06-2025 Miscellaneous Notes Case Management Discharge Summary Note Who you talked to: Name: Marcell Myers No answer, left HIPAA compliant VM. Marcell was aware patient would likely discharge today back to SNF. 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 CM anticipates no copay for transport as joão has dual MCR and JOON. Care Management Progress Note Short Medical why still here: Remains for chronic trach/peg, iHD baseline - 5d/wk, iHD today. Nephrology following/consult. Plan for discharge today s/p iHD run. 07/06/25 Ok to discharge per attending. CM tasked RESPIRATORY CARE PROGRAM DIRECTOR to send discharge orders to SNF via careport. Planned Discharge Disposition: Correction/Residential Care ([facility]) Barriers/Today we still Wait: Clinical stability, Procedure (comment) Length of Stay (Days): 2 GMLOS: No GMLOS Documented Case management will continue to follow for discharge planning. Care Management Progress Note Short Medical why still here: Remains for chronic trach/peg, iHD baseline - 5d/wk, iHD today. Nephrology following/consult. Planned Discharge Disposition: Correction/Residential Care ([facility]) Can return when medically ready, will need transportation set up. Barriers/Today we still Wait: Clinical stability, Flight Dynamicist recommendations (comment), Symptomatic control Length of Stay (Days): 1 GMLOS: No GMLOS Documented Case management will continue to follow for discharge planning. Care Managment Initial Assessment Date: 07/05/2025 Patient Name: Rosa Myers : 1950 Patient Information Source of Information: Patient, Patient Cabinetmaker Helper Name/Contact Information: Marcell العلي [phone] Cognition/Language: Other (Comment) (trach/vent - mouths words) Permission given to speak with patient life assurance representative/caregiver as indicated: Yes Confirmation of Payer with patient/family: Yes Payer Name: [place]: Confirmation of Primary Care Physician: Confirmed (SNF provider) Seen in last 2 years?: Yes Primary Caregiver: Other (Comment) (facility) If assistance needed, confirmed caregiver ready, willing and able to care for patient at discharge: Confirmed with: Living Arrangements Current Residence: Number of Floors Number of Entry Steps: Bed/Bath Levels: Facility: Correction/Residental Care Facility Name: [facility] Plan to Return: Lives with: Other (Comment) (facility) Support Systems: Family members Activities of Daily Living Ambulation: Bathing/Dressing: Elimination/Continence/Toileting : Feeding: Who Assists with Activities of Daily Living: Instrumental Activities of Daily Living Prescription Coverage: Pharmacy Used: Medication Management: Transportation/Shopping: Transportation Mode: Needs Assistance with Transportation at Discharge: Meal Preparation: Laundry/Cleaning: Finances/Bill Paying: Communication: Types of Care Services/Equipment Utilized Care Services: Dialysis Type: Durable Medical Equipment: Patient's Goal/Discharge Plan Patient expects to be discharged to: [facility] Discharge Planning Actions: Continue to follow, Retirement Facility referral indicated [place] of choice: [place] of [facility] discussed Patient's Choice Rights and [employer] and Collaborative Relationships Disclosed as Indicated for Post-Acute Care: Yes Interdisciplinary Team Engagement: Social Work Referral for: Additional Information: Initial Assessment: Chart reviewed. IA/HRA completed. CM spoke with patient at bedside. Appropriate PPE worn. Patient trach to vent, mouths words and gestures appropriately. Patient from [facility] - LTC bedhold. Has insurance on EHR. PCP at SNF. Patient requested CM to call son Marcell to discuss discharge planning. CM called Marcell (son) [phone] regarding discharge planning. Introduced myself and role. Discussed LTACH vs SNF and LTC facility. Discussed several recent admissions to hospital. Marcell wishes for patient to return to [facility]. CM tasked RESPIRATORY CARE PROGRAM DIRECTOR to send referral via careport. Confirmed patient is LTC bedhold, iHD mon to Wednesday at facility. Will need transportation to facility. Case management will continue to follow for discharge planning. Return referral placed to [facility] via Careport per TCC request. Await review and response regarding ability to accept. TCC notified. documented in this encounter [facility] 07-06-2025 Progress note Formatting of t his note might be different from the original. Care Management Progress Note Short Medical why still here: Remains for chronic trach/peg, iHD baseline - 5d/wk, iHD today. Nephrology following/consult. Plan for discharge today s/p iHD run. 07/06/25 Ok to discharge per attending. CM tasked RESPIRATORY CARE PROGRAM DIRECTOR to send discharge orders to SNF via careport. Planned Discharge Disposition: Correction/Residential Care ([facility]) Barriers/Today we still Wait: Clinical stability, Procedure (comment) Length of Stay (Days): 2 GMLOS: No GMLOS Documented Case management will continue to follow for discharge planning. [facility] 07-06-2025 Nurse Note Patient Name: Rosa Myers Patient : 1950 Acct: [id number] Date of Admission: 07/04/2025 Room/Bed: T2-217/T2217 A Code Status: Full Code Allergies: Allergies[1] Diagnosis: Problem List[2] Treatment: Hemodialysis 1:1 Priority: Routine Location: ICU Diabetic: Yes NPO: Yes Isolation Precautions: Contact Consent for Treatment Verified: Yes Blood Consent Verified: Not Applicable ICEBOAT: Identify, Consent, Equipment, HepB Status, Orders Complete, Access Verified, Timeliness Second Clinician Verifying: Veda Gunn RN Time out performed prior to access at 0820. Report Received from Primary RN at 0800. Primary RN (First Initial, Last Name, Title): Thalia Egan RN Incapacitated Nurse Education Completed: Yes HBsAg ONLY: Date Drawn: July 04, 2025 Results: Negative HBsAb: Date Drawn: July 04, 2025 Results: Susceptible <10 Order Dialyzer: Nipro Na+ Modeling: Not Applicable Dialysate Temperature (C): 36 Blood Flow Rate (BFR): 400 Dialysate Flow Rate (DFR): 600 Access to be Utilized Access: Tunneled Catheter Location: Subclavian Side: Right Needle gauge: Not Applicable + Bruit/Thrill: Not Applicable First Use X-ray Verified: Not Applicable OK to use line order: Yes Site Assessment: Signs and Symptoms of Infection/Inflammation: None If yes: Not Applicable Dressing: Dry and Intact Site Prep: Medical Aseptic Technique Dressing Changed this Treatment: Yes If yes, by whom: Carl MICHELE Date of Last Dressing Change: July 06, [address]?: Yes Red Alcohol Caps in place?: Yes Gauze Dressing?: No Non-Dialysis Use?: No Comment: Flows: Good and Patent If access problem, who was notified: Pre and Post-Assessment Patient Vitals for the past 8 hrs: Bilateral Breath Sounds Abdomen Inspection Bowel Sounds (All Quadrants) Generalized Edema RUE Edema LUE Edema RLE Edema LLE Edema 07/06/25 0700 Diminished;Rhonchi Gastrostomy tube Active Non-pitting Trace Trace None None 07/06/25 0825 -- -- -- Non-pitting Trace Trace None None 07/06/25 1100 Diminished;Rhonchi Gastrostomy tube Active Non-pitting Trace Trace None None Labs Lab Results Component Value Date/Time WBC 7.8 07/06/2025804 HGB 7.7 (L) 07/06/2025804 HCT 24.3 (L) 07/06/2025804 PLT 190 07/06/2025804 NA 136 07/06/2025447 K 4.0 07/06/2025447 CL 99 07/06/2025447 CO2 27 07/06/2025447 BUN 64 (H) 07/06/2025447 CREATININE 3.36 (H) 07/06/2025447 CALCIUM 9.3 07/06/2025447 PHOS 3.3 07/06/2025447 IV Drips and Rate/Dose Continuous Meds[3] Safety - Before each treatment: Dialysis Machine No.: [id number] Machine Number: [id number] Dialyzer Lot No.: [id number] Tubing Lot Number: [id number] All Connections Secure: Yes Venous Parameters Set: Yes Arterial Parameters Set: Yes NS Bag: Yes Saline Line Double Clamped: Yes Dialyzer: Nipro Prime Volume (mL): 250 mL RO Machine Number: [id number] RO Machine Log Sheet Completed: Yes Machine Alarm Self Test: Completed, Passed (07/06/25819) Air Foam Detector: Tested, Proper Function, pH Reading Extracorporeal Circuit Tested for Integrity: Yes Machine Conductivity: 14.3 Manual Conductivity: 14 Manual Ph: 7.2 Bleach Test (Neg): Yes Bath Temperature: 36 C (96.8 F) Conductivity Meter Serial #: [id number] Machine Functioning Alarm Free? Yes Dialysis Bath: K+ (Potassium): 3 Ca+ (Calcium): 2.5 Na+ (Sodium): 137 HCO3 (Bicarb): 32 Bicarbonate Concentrate Lot No.: [id number] Acid Concentrate Lot No.: [id number] Chlorine Testing - Before each treatment and every 4 hours: Time On: 0825 Time Off: 1155 Treatment Goal: UF 0-2 L as tolerated for SBP >85 or MAP >60, can bolus 25 g PRN IV albumin x2 doses if needed Weight Height: 165.1 cm (5' 5") (07/05/25703) Weight: 105 kg (232 lb 5.8 oz) (07/05/25899) BMI (Calculated): 38.67 (07/05/25899) 1st check: less than 0.1 ppm at: 0805 2nd check: less than 0.1 ppm at: 1130 3rd check: Not Applicable (if greater than 0.1 ppm, then check every 30 minutes from secondary) Access Flows and Pressures Patient Vitals for the past 8 hrs: Blood Flow Rate (mL/min) Ultrafiltration Rate (ml/hr) Arterial Pressure (mmHg) Venous Pressure (mmHg) TMP DFR Access Visible Intra-Hemodialysis Comments 07/06/2525 400 mL/min 570 ml/hr -80 mmHg 100 mmHg 80 600 Yes tx initiated 07/06/25 0830 400 mL/min 570 ml/hr -110 mmHg 110 mmHg 80 600 Yes no HD complications, increase UF goal, 45 ml removed 07/06/25 0845 400 mL/min 720 ml/hr -140 mmHg 120 mmHg 80 600 Yes no s/s of distress, 220 ml removed 07/06/25 0900 400 mL/min 720 ml/hr -150 mmHg 120 mmHg 80 600 Yes pt resting with eyes closed, 400 ml removed 07/06/25 0915 400 mL/min 720 ml/hr -180 mmHg 120 mmHg 80 600 Yes no HD complications, 575 ml removed 07/06/25 0930 400 mL/min 720 ml/hr -210 mmHg 120 mmHg 80 600 Yes pt resting with eyes closed, 750 ml removed 07/06/25 0945 400 mL/min 710 ml/hr -220 mmHg 120 mmHg 80 600 Yes no s/s of distress, 940 ml removed 07/06/25 1000 400 mL/min 710 ml/hr -220 mmHg 120 mmHg 80 600 Yes lines secure and visible, 1100 ml removed 07/06/25 1015 400 mL/min 710 ml/hr -200 mmHg 110 mmHg 80 600 Yes no HD complications, 1275 ml removed 07/06/25 1030 400 mL/min 710 ml/hr -200 mmHg 110 mmHg 80 600 Yes pt resting with eyes closed, 1460 ml removed 07/06/25 1045 400 mL/min 710 ml/hr -200 mmHg 110 mmHg 80 600 Yes no s/s of discomfort, 1625 ml removed 07/06/25 1100 400 mL/min 710 ml/hr -190 mmHg 110 mmHg 80 600 Yes lines secure and visible, 1810 ml removed 07/06/25 1115 400 mL/min 710 ml/hr -200 mmHg 110 mmHg 80 600 Yes pt resting with eyes closed, 2015 ml remvoed 07/06/25 1119 400 mL/min 710 ml/hr -190 mmHg 110 mmHg 80 600 Yes pt alert, no voiced concerns 07/06/25 1130 400 mL/min 710 ml/hr -180 mmHg 100 mmHg 80 600 Yes no HD complications, 2160 ml removed 07/06/25 1145 400 mL/min 720 ml/hr -180 mmHg 110 mmHg 80 600 Yes no s/s of distress, 2370 ml removed 07/06/25 1155 400 mL/min 720 ml/hr -180 mmHg 110 mmHg 80 600 Yes tx complete, 2500 ml removed Vital Signs Patient Vitals for the past 24 hrs: BP Temp Temp src Pulse Resp SpO2 07/06/25 1200 (!) 116/45 36.4 C (97.6 F) -- 63 18 100 % 07/06/25 1155 (!) 120/47 -- -- 63 (!) 3 100 % 07/06/25 1145 (!) 118/45 -- -- 56 16 100 % 07/06/25 1130 (!) 112/49 -- -- 61 14 100 % 07/06/25 1119 126/77 -- -- 66 20 100 % 07/06/25 1115 (!) 109/43 -- -- 58 15 100 % 07/06/25 1100 135/54 -- -- 56 (!) 6 100 % 07/06/25 1045 (!) 116/46 -- -- 59 13 100 % 07/06/25 1030 (!) 124/47 -- -- 60 16 100 % 07/06/25 1015 120/94 -- -- 65 13 100 % 07/06/25 1000 127/55 -- -- 63 19 100 % 07/06/25 0945 (!) 126/48 -- -- 66 14 100 % 07/06/25 0930 143/69 -- -- 62 15 100 % 07/06/25 0915 136/50 -- -- 64 18 100 % 07/06/25 0900 141/52 -- -- 66 -- 100 % 07/06/25 0845 (!) 127/40 -- -- 61 -- 100 % 07/06/2530 122/53 -- -- 63 -- 100 % 07/06/25 0825 (!) 127/46 -- -- 61 14 100 % 07/06/25 0820 (!) 126/44 36.4 C (97.5 F) -- 58 14 100 % 07/06/25 0812 -- -- -- 67 (!) 10 100 % 07/06/25 0700 -- -- -- 62 -- -- 07/06/25 0405 -- -- -- 65 18 100 % 07/06/25 0400 146/55 37.1 C (98.8 F) Temporal 62 16 100 % 07/06/25 0020 -- -- -- 74 19 100 % 07/06/25 0000 144/55 36.4 C (97.6 F) Temporal 67 19 100 % 07/05/25 2100 (!) 100/41 -- -- 68 18 100 % 07/05/252000 -- -- -- 72 22 100 % 07/05/251999 (!) 96/32 36.3 C (97.4 F) Temporal 74 (!) 28 100 % 07/05/25 1900 (!) 114/43 -- -- 65 16 100 % 07/05/25 1800 (!) 125/48 -- -- 68 17 100 % 07/05/25 1738 (!) 145/43 -- -- 69 -- -- 07/05/25 1658 -- -- -- 69 16 100 % Post-Dialysis Arterial Catheter Locking Solution: Heparin (1000units:1ml) Volume (ml): 2.0 Venous Catheter Locking Solution: Heparin (1000units:1ml) Volume (ml): 2.1 Post-Treatment Procedures: Blood returned, Catheter capped, clamped and heparinized x 2 ports Machine Disinfection Process: Exterior Machine Disinfection Rinseback Volume (mL): 250 mL Total Liters Processed (L/min): 77.9 L/min Dialyzer Clearance: Lightly streaked Hemodialysis Intake (ml): 500 ml Hemodialysis Output (ml): 2500 ml NET Removed (ml): 2000 ml Tolerated Treatment: Good Interventions Taken: (None needed) Patient Response to Treatment: stable Physician Notified: No Patient Disposition: Remain in ICU/ED Charge: $ IP Hemodialysis Charge: Hemodialysis Provider Notification Provider Notification Reason for Communication: Abnormal Vitals (Bp 104/38 map 56) Provider Name: Dave Provider Role: Attending physician Method of Communication: Secure chat Response: Waiting for response Notification Date: 07/05/25 Notification Time: 2100 Provider Role: Attending physician Method of Communication: Secure chat Response: Waiting for response Notification Time: 2100 Handoff complete and report given to Primary RN at 1210. Primary RN (First Initial, Last Name, Title): Thalia Egan RN Education Person Educated: Patient Knowledge Base: Minimal Barriers to Learning?: None Preferred method of Learning: Oral Topic(s): Access Care and Procedural Teaching Tools: Explanation Response to Education: Verbalized Understanding [1] No Known Allergies [2] Patient Active Problem List Diagnosis Anemia Anemia, unspecified type Moderate malnutrition (CMS/HCC) (HCC) Acute metabolic encephalopathy Anxiety and depression Debility ESRD (end stage renal disease) on dialysis ([facility]) [3] T [facility] 07-06-2025 Hospital course Narrative Discharge Summary Hospitalist Discharge Summary Rosa Myers : 1950 Admit date: 07/04/2025 Discharge date: 07/06/2025 Admitting Physician: Griffin Peters MD Primary Care Physician: No primary care provider on file. Visit Status: Inpatient Code Status: Full Code BRIEF HOSPITAL COURSE: This is a 75-year-old female with past medical history of hypertension, hyperlipidemia, DM2, ESRD on hemodialysis M/W/F, vent dependent trach and PEG who presents with concerns of incomplete dialysis. The facility had been having issues using the dialysis catheter but a new 1 was placed on 07/04. The patient underwent dialysis session over two days. She had been on levofloxacin but stopped as no cough and no infiltrate (and had likely been contributing to loose stools, had prolonged Qtc, and was on higher dose than recommended for ESRD patient). Her breathing requirements were unchanged and she was discharged to SNF in optimized condition. ESRD on hemodialysis -Received dialysis again today -Usual schedule is M/W/F -Nephrology has seen Trach and vent dependent Recent pneumonia -Stopped Levaquin -Patient with no cough and diarrhea possibly with antibiotic contributing -Prolonged QTc and should not be on Levaquin -Currently denies cough and monitor off antibiotic DM2 with hyperglycemia - continue lantus and SSI Diarrhea -C. difficile positive but toxin negative -suspect colonization - stools improved off ABX Dysphagia -has PEG tube -Continue tube feeds Hyperlipidemia Anemia Hyponatremia Depression Anxiety Medical History[1] Procedures: Dialysis x 2 days Hospital Course: See above. See discharge diagnoses list above and medication adjustments below in med rec.The patient is discharged in improved and stable condition. Consults: IP CONSULT TO DIETITIAN IP CONSULT TO WOUND PREVENTION IP CONSULT TO NEPHROLOGY Discharge Instructions: Diet: Dietary Orders (From admission, onward) Start Ordered 07/05/25 1454 Diet, tube feeding no tray PEG; Nepro w/CARB Steady; Continuous; Yes; 10; Q 4 Hours; 20; 40 (Diet Tube Feeding- NO Meals) Diet effective now Question Answer Comment Route: PEG Formula: Nepro w/CARB Steady Delivery Method: Continuous Continuous Advance Tube Feeding? Yes Advancement Volume (mL/hr) 10 Advancement Frequency: Q 4 Hours Continuous Initial Rate (Recommended mL/hr) 20 Continuous Goal Rate (Recommended mL/hr) 40 07/05/25 1454 Activity: as tolerated Recommended Outpatient Tests: Disposition: Patient discharged in stable condition to SNF. Greater than 31 minutes spent discharging the patient and coming up with patient discharge plan. Vitals: BP (!) 116/45 Pulse 67 Temp 36.4 C (97.6 F) Resp 21 Ht 5' 5" (1.651 m) Wt 232 lb 5.8 oz (105 kg) SpO2 100% BMI 38.67 kg/m Pulse Ox: SpO2 Av % Min: 100 % Max: 100 % Supplemental O2: Physical Exam Constitutional: General: She is not in acute distress. Appearance: She is obese. Comments: +chronically ill-appearing HENT: Head: Normocephalic and atraumatic. Mouth/Throat: Mouth: Mucous membranes are moist. Eyes: Extraocular Movements: Extraocular movements intact. Conjunctiva/sclera: Conjunctivae normal. Neck: Comments: +trach to vent Cardiovascular: Rate and Rhythm: Normal rate and regular rhythm. Pulmonary: Effort: Pulmonary effort is normal. Comments: +coarse BS's Abdominal: General: There is no distension. Palpations: Abdomen is soft. Tenderness: There is no abdominal tenderness. Comments: +PEG Genitourinary: Comments: +FMS Musculoskeletal: General: No swelling. Skin: General: Skin is warm and dry. Neurological: Mental Status: She is alert and oriented to person, place, and time. Comments: +globally weak Psychiatric: Mood and Affect: Mood normal. LABS: Recent Labs 07/04/25 1634 07/05/25 0341 07/06/25 0448 NA 132* 132* 136 K 4.7 4.2 4.0 CL 91* 92* 99 CO2 29 29 27 BUN 106* 125* 64* CREATININE 4.92* 5.26* 3.36* GLUCOSE 125* 97 89 CALCIUM 9.9 9.7 9.3 Recent Labs 07/04/25 1634 07/05/25 0341 07/06/25 0805 WBC 7.4 6.8 7.8 RBC 2.92* 2.73* 2.80* HGB 7.9* 7.4* 7.7* HCT 24.7* 23.4* 24.3* MCV 84.6 85.7 86.8 MCH 27.1 27.1 27.5 MCHC 32.0 31.6 31.7 RDW 19.6* 19.6* 19.4* PLT 171 179 190 MPV 10.0 10.3 10.0 Discharge Medications: Medication List ASK your doctor about these medications atorvastatin 40 MG tablet Commonly known as: Lipitor 1 tablet (40 mg) by Per G Tube route Nightly. busPIRone 5 MG tablet Commonly known as: Buspar 1 tablet (5 mg) by Per G Tube route 3 times daily. carvedilol 3.125 MG tablet Commonly known as: Coreg 1 tablet (3.125 mg) by Per G Tube route 2 times daily (with meals). FLUoxetine 20 MG capsule Commonly known as: PROzac 1 capsule (20 mg) by Per G Tube route daily. furosemide 20 MG tablet Commonly known as: Lasix Take 1 tablet (20 mg) by mouth Twice a Week. Via PEG, given on wed/Wednesday for weight gain insulin glargine 100 UNIT/ML injection Commonly known as: Lantus Insulin Lispro 100 UNIT/ML solution injection Commonly known as: Humalog miconazole 2 % powder Commonly known as: Micotin Apply topically 2 times daily for 7 days. Ask about: Should I take this medication? midodrine 10 MG tablet Commonly known as: Proamatine 1 tablet (10 mg) by Per G Tube route 3 times daily. Recommended Follow-up: No follow-up provider specified. Complexity of Follow up: [] Moderate Complexity: follow up within 7-14 calendar days (20022) [x] Severe Complexity: follow up within 7 calendar days (45921) Follow up Testing, Pending results or Referrals at Transitional Care Visit: [] yes [x] no Instructions to MA: Please call patient on day after discharge (must document patient contacted within 2 business days of discharge). Follow up questions for MA: 1. Did you get medications filled and taking them as instructed from discharge? 2. Are you following your discharge instructions from your hospital stay? 3. Please confirm patient is scheduled for a follow up appointment within the above time frame. Signed: Santos Jacobs DO Division of Hospitalist Medicine [facility] 07/06/2025, 2:54 PM [1] Past Medical History: Diagnosis Date Anxiety Depression Diabetes (HCC) Respiratory failure (HCC) documented in this encounter [facility] 07-06-[address] [facility] 07-05-2025 Nurse Note Patient bleeding from old IV site. Changed patient's gown, linens. Also rolled new pull pad under patient. No kinks in FMS. [facility] 07-05-2025 Consult note Associated Order (s): IP CONSULT TO DIETITIAN Nutrition Assessment Type and Reason for Visit: Initial, Consult (TF ordering and management) Nutrition Recommendations/Plan: RD changed EN to Nepro with Carb Steady at 40 ml/hr (via MNT protocol) to provide 1699 kcals, 78g protein, and 1298 ml free water (~30 kcals, 1.4g protein per kg IBW of 57kg). Ordered 75 mls free water flushes (FWF) every 4 hours via MNT protocol. Monitor nutritional status. Malnutrition Assessment: Malnutrition Status: Insufficient data Context: Acute Illness Nutrition Assessment: Pt is a 75-year-old woman with PMHx: CHD, HLD, HTN, DMII(A1C=6.5% 12/18/24), ESRD (Wednesday, Wed, Wednesday- HD at [facility]), PEG placement on 02/21 and tracheostomy placement 02/27/2025 who admits with concern for incomplete HD; did not have dialysis since of last week (6 days). Recently get a new dialysis catheter placed 07/04/25; requires dialysis prior to going back to long-term facility. Patient is nonverbal but able to mouth words. Able to shake her head yes and no and blink her eyes. She currently denies having any headache, dizziness, chest pain, shortness of breath, abdominal pain. Denies any pain. No fevers or chills noted. Right upper chest wall dialysis catheter dry clean intact no issues. Admitted for further evaluation and management. Consult for tube feeding ordering and management. Nepro with Carb Steady ordered # 57 mls/hour - cyclic [id number], pro-stat, run 20 hours a day, off during dialysis. Estimated Daily Nutrient Needs: Energy Requirements Based On: Kcal/kg Weight Used for Energy Requirements: [place] Weight for Energy Calculation (kg): 57 kg Total Energy Requirements (kcals/day): 25-30 kcals/kg = 8055-2871 kcals/day Weight Used for Protein Requirements: [place] Weight in Kg Used for Protein Requirements: 57 kg Estimated Total Protein (g/day): 1.1-1.4g protein/kg = 63-80g protein/day Estimated Daily Total Fluid (ml/day): 1425 mls Nutrition Related Findings: Net IO Since Admission: 100 mL [07/05/25 1450] Lives with: Other (Comment) (facility), Primary Caregiver: Other (Comment) (facility) Orientation Level: Oriented to place, Oriented to time, Oriented to person, Disoriented to situation, Cognition: Follows commands, Best Verbal Response: Confused, Patient Behaviors/Mood: Calm, Cooperative Tyler Scale Score: 12 Gastrointestinal (WDL): Exceptions to WDL Bowel Sounds (All Quadrants): Active Abdomen Inspection: Soft, Nondistended Stool Appearance: Watery Edema: Generalized Edema: Mild pitting, slight indentation, RUE Edema: Pitting 2mm, LUE Edema: Pitting 2mm, RLE Edema: Mild pitting, slight indentation, LLE Edema: Mild pitting, slight indentation Oxygen Therapy: Supplemental oxygen, O2 Delivery Method: Ventilator, Meds reviewed: Scheduled: Scheduled Meds[1] Continuous: Continuous Meds[2] Current Nutrition Therapies: Enteral Nutrition Feeding Route: PEG EN Formula: Nepro w/CARBSTEADY EN Schedule: Cyclic EN Feeding Regimen: Nepro with Carb Steady @ 57 mls/hour (cyclic) - 8035-7305 - run 20 hours, off during dialysis. Prostat listed - no amount listed. Water Flushes: none Current EN & Flush Order Provides: ordered Goal EN & Flush Order Provides: Nepro with Carb Steady @ 57 mls/hour x 20 hours ([id number]), off during dialysis = 2018 kcals, 92g protein, 829 mls free H20 = 35 kcals/kg + 1.6g protein/kg IBW (57kgs). Anthropometric Measures: Height: 165.1 cm (5' 5") Current Body Weight: 105 kg (231 lb 7.7 oz) Weight Source: Bed Scale [place] Body Weight (lbs) (Calculated): 125 lbs [place] Body Weight (Kg) (Calculated): 57 kg % [place] Body Weight (Calculated): 185.2 % BMI (kg/m2) (Calculated): 38.5 BMI Categories: Obese Class 2 (BMI 35.0 -39.9) Wt Readings from Last 10 Encounters: 07/05/25 105 kg (232 lb 5.8 oz) 07/03/25 108 kg (237 lb 9.6 oz) 06/11/25 104 kg (229 lb 0.9 oz) LABS: Recent Labs 07/03/25 1351 07/04/25 1634 07/05/25 0341 NA 134* 132* 132* K 3.9 4.7 4.2 CL 92* 91* 92* CO2 30 29 29 BUN 88* 106* 125* CREATININE 4.14* 4.92* 5.26* GLUCOSE 118* 125* 97 CALCIUM 10.1* 9.9 9.7 MG 2.6 -- -- BG - elevated. Na+/Cl - decreased. Recent Labs 07/03/25 1351 07/04/25 1634 07/05/25 0341 AST 39* 40* 32 ALT 25 36* 21 BILITOT 0.5 0.6 0.6 ALKPHOS 135 134 121 No results found for: "ZINC" Nutrition Diagnosis: Swallowing difficulty related to cognitive or neurological impairment as evidenced by nutrition support - enteral nutrition Nutrition Interventions: Nutrition Education/Counseling: No recommendation at this time Coordination of Nutrition Care: Continue to monitor while inpatient Goals: Goals: Tolerate nutrition support at goal rate, by next RD assessment Nutrition Monitoring and Evaluation: Food/Nutrient Intake Outcomes: Enteral Nutrition Intake/Tolerance Physical Signs/Symptoms Outcomes: Biochemical Data, GI Status, Weight, Skin, Nutrition Focused Physical Findings, Hemodynamic Status, Fluid Status or Edema Discharge Planning: Too soon to determine Millicent Mcknight RD,LD,[facility] Contact: *[phone] or [facility] Chat [1] atorvastatin, 40 mg, Per G Tube, Nightly busPIRone, 5 mg, Per G Tube, TID carvedilol, 3.125 mg, Per G Tube, BID WC FLUoxetine, 20 mg, Per G Tube, Daily insulin glargine, 25 Units, SubCUTAneous, BID insulin lispro, 0-12 Units, SubCUTAneous, TID WC And insulin lispro, 0-12 Units, SubCUTAneous, Nightly miconazole, , Topical, BID midodrine, 10 mg, Per G Tube, TID mupirocin, , Topical, TID sodium chloride 0.9%, 5-40 mL, IntraVENous, q12h [2] [facility] 07-05-2025 Consult note Associated Order (s): IP CONSULT TO DIETITIAN Nutrition Assessment Type and Reason for Visit: Initial, Consult (TF ordering and management) Nutrition Recommendations/Plan: RD changed EN to Nepro with Carb Steady at 40 ml/hr (via MNT protocol) to provide 1699 kcals, 78g protein, and 1298 ml free water (~30 kcals, 1.4g protein per kg IBW of 57kg). Ordered 75 mls free water flushes (FWF) every 4 hours via MNT protocol. Monitor nutritional status. Malnutrition Assessment: Malnutrition Status: Insufficient data Context: Acute Illness Nutrition Assessment: Pt is a 75-year-old woman with PMHx: CHD, HLD, HTN, DMII(A1C=6.5% 12/18/24), ESRD (Wednesday, Wed, Wednesday- HD at [facility]), PEG placement on 02/21 and tracheostomy placement 02/27/2025 who admits with concern for incomplete HD; did not have dialysis since of last week (6 days). Recently get a new dialysis catheter placed 07/04/25; requires dialysis prior to going back to long-term facility. Patient is nonverbal but able to mouth words. Able to shake her head yes and no and blink her eyes. She currently denies having any headache, dizziness, chest pain, shortness of breath, abdominal pain. Denies any pain. No fevers or chills noted. Right upper chest wall dialysis catheter dry clean intact no issues. Admitted for further evaluation and management. Consult for tube feeding ordering and management. Nepro with Carb Steady ordered # 57 mls/hour - cyclic 1719-5743, pro-stat, run 20 hours a day, off during dialysis. Estimated Daily Nutrient Needs: Energy Requirements Based On: Kcal/kg Weight Used for Energy Requirements: [place] Weight for Energy Calculation (kg): 57 kg Total Energy Requirements (kcals/day): 25-30 kcals/kg = 3461-5911 kcals/day Weight Used for Protein Requirements: [place] Weight in Kg Used for Protein Requirements: 57 kg Estimated Total Protein (g/day): 1.1-1.4g protein/kg = 63-80g protein/day Estimated Daily Total Fluid (ml/day): 1425 mls Nutrition Related Findings: Net IO Since Admission: 100 mL [07/05/25 1450] Lives with: Other (Comment) (facility), Primary Caregiver: Other (Comment) (facility) Orientation Level: Oriented to place, Oriented to time, Oriented to person, Disoriented to situation, Cognition: Follows commands, Best Verbal Response: Confused, Patient Behaviors/Mood: Calm, Cooperative Tyler Scale Score: 12 Gastrointestinal (WDL): Exceptions to WDL Bowel Sounds (All Quadrants): Active Abdomen Inspection: Soft, Nondistended Stool Appearance: Watery Edema: Generalized Edema: Mild pitting, slight indentation, RUE Edema: Pitting 2mm, LUE Edema: Pitting 2mm, RLE Edema: Mild pitting, slight indentation, LLE Edema: Mild pitting, slight indentation Oxygen Therapy: Supplemental oxygen, O2 Delivery Method: Ventilator, Meds reviewed: Scheduled: Scheduled Meds[1] Continuous: Continuous Meds[2] Current Nutrition Therapies: Enteral Nutrition Feeding Route: PEG EN Formula: Nepro w/CARBSTEADY EN Schedule: Cyclic EN Feeding Regimen: Nepro with Carb Steady @ 57 mls/hour (cyclic) - 1110-2385 - run 20 hours, off during dialysis. Prostat listed - no amount listed. Water Flushes: none Current EN & Flush Order Provides: ordered Goal EN & Flush Order Provides: Nepro with Carb Steady @ 57 mls/hour x 20 hours (2708-9709), off during dialysis = 2018 kcals, 92g protein, 829 mls free H20 = 35 kcals/kg + 1.6g protein/kg IBW (57kgs). Anthropometric Measures: Height: 165.1 cm (5' 5") Current Body Weight: 105 kg (231 lb 7.7 oz) Weight Source: Bed Scale [place] Body Weight (lbs) (Calculated): 125 lbs [place] Body Weight (Kg) (Calculated): 57 kg % [place] Body Weight (Calculated): 185.2 % BMI (kg/m2) (Calculated): 38.5 BMI Categories: Obese Class 2 (BMI 35.0 -39.9) Wt Readings from Last 10 Encounters: 07/05/25 105 kg (232 lb 5.8 oz) 07/03/25 108 kg (237 lb 9.6 oz) 06/11/25 104 kg (229 lb 0.9 oz) LABS: Recent Labs 07/03/25 1351 07/04/25 1634 07/05/25 0341 NA 134* 132* 132* K 3.9 4.7 4.2 CL 92* 91* 92* CO2 30 29 29 BUN 88* 106* 125* CREATININE 4.14* 4.92* 5.26* GLUCOSE 118* 125* 97 CALCIUM 10.1* 9.9 9.7 MG 2.6 -- -- BG - elevated. Na+/Cl - decreased. Recent Labs 07/03/25 1351 07/04/25 1634 07/05/25 0341 AST 39* 40* 32 ALT 25 36* 21 BILITOT 0.5 0.6 0.6 ALKPHOS 135 134 121 No results found for: "ZINC" Nutrition Diagnosis: Swallowing difficulty related to cognitive or neurological impairment as evidenced by nutrition support - enteral nutrition Nutrition Interventions: Nutrition Education/Counseling: No recommendation at this time Coordination of Nutrition Care: Continue to monitor while inpatient Goals: Goals: Tolerate nutrition support at goal rate, by next RD assessment Nutrition Monitoring and Evaluation: Food/Nutrient Intake Outcomes: Enteral Nutrition Intake/Tolerance Physical Signs/Symptoms Outcomes: Biochemical Data, GI Status, Weight, Skin, Nutrition Focused Physical Findings, Hemodynamic Status, Fluid Status or Edema Discharge Planning: Too soon to determine Millicent Mcknight RD,LD,[facility] Contact: *[phone] or Epic Chat [1] atorvastatin, 40 mg, Per G Tube, Nightly busPIRone, 5 mg, Per G Tube, TID carvedilol, 3.125 mg, Per G Tube, BID WC FLUoxetine, 20 mg, Per G Tube, Daily insulin glargine, 25 Units, SubCUTAneous, BID insulin lispro, 0-12 Units, SubCUTAneous, TID WC And insulin lispro, 0-12 Units, SubCUTAneous, Nightly miconazole, , Topical, BID midodrine, 10 mg, Per G Tube, TID mupirocin, , Topical, TID sodium chloride 0.9%, 5-40 mL, IntraVENous, q12h [2] Associated Order(s): IP CONSULT TO NEPHROLOGY Images from the original note were not included. NEPHROLOGY CONSULT NOTE PATIENT NAME: Rosa Myers ROOM: / A SERVICE DATE: 07/05/2025 SERVICE TIME: 11:08 AM LENGTH OF STAY: 1 day(s) REFERRING PHYSICIAN: Santos Jacobs DO PRIMARY CARE PHYSICIAN: No primary care provider on file. OUTPATIENT LOGISTICS PLANNING ENGINEER: [facility] (Dr. Loredo) Subjective/HPI Rosa Myers is a 75 y.o. female with PMHx significant for ESRD on HD (per Wednesday through Wednesday schedule at [facility]), HTN, HLD, CHF, chronic respiratory failure (s/p trach/PEG), DM type 2, neuropathy, history of C. difficile colitis, anxiety, depression, morbid obesity who initially presented to the ED on 07/03/25 with malfunctioning of her RIJ HDTC, and she was admitted for dialysis following replacement of her tunneled line per IR. The nephrology service was consulted for the provision of inpatient dialysis. Reportedly she last received dialysis last week on 06/28/25 prior to presentation to the hospital. Patient was ultimately administered a HD session overnight with 1 L UF. She was seen and examined this morning. She was unable to participate in conversation but remains interactive on evaluation. Review of Systems: unable to obtain due to patient's current condition Medical History: Medical History[1] Surgical History[2] Family History[3] Social History[4] Allergies: Allergies[5] Prior to Admission Medications: Prescriptions Prior to Admission[6] Objective Physical Exam Patient Vitals for the past 24 hrs: BP Temp Temp src Pulse Resp SpO2 Height Weight 07/05/25 1016 -- -- -- 65 17 100 % -- -- 07/05/25 1000 (!) 126/39 -- -- 66 17 100 % -- -- 07/05/25 0909 124/98 -- -- 66 -- -- -- -- 07/05/25 0900 124/98 -- -- 66 15 100 % -- 105 kg (232 lb 5.8 oz) 07/05/25 0815 (!) 112/45 -- -- 64 18 100 % -- -- 07/05/25 0810 (!) 123/42 -- -- 67 21 100 % -- -- 07/05/25 0800 99/87 -- -- 64 15 100 % -- -- 07/05/25 0745 (!) 86/64 36.3 C (97.3 F) Temporal 65 16 100 % -- -- 07/05/2530 (!) 113/44 -- -- 59 15 100 % -- -- 07/05/25 0715 104/76 -- -- 62 13 100 % -- -- 07/05/25 0704 -- -- -- -- -- -- 1.651 m (5' 5") -- 07/05/25 07 (!) 124/44 -- -- 63 18 100 % -- -- 07/05/2545 101/64 -- -- 61 (!) 8 100 % -- -- 07/05/2530 105/54 -- -- 61 14 100 % -- -- 07/05/2515 91/68 -- -- 65 17 100 % -- -- 07/05/25 0603 -- -- -- 62 -- 100 % -- -- 07/05/25599 (!) 117/48 -- -- 64 13 100 % -- 105 kg (232 lb 9.4 oz) 07/05/25 0545 (!) 111/47 -- -- 63 (!) 5 100 % -- -- 07/05/25 0530 109/52 -- -- 62 (!) 6 100 % -- -- 07/05/25 0515 110/51 -- -- 63 (!) 10 100 % -- -- 07/05/25 0510 105/51 -- -- 61 (!) 8 100 % -- -- 07/05/25 0505 -- -- -- 63 (!) 0 100 % -- -- 07/05/25 0500 -- -- -- 65 15 100 % -- -- 07/05/25 0434 (!) 133/49 -- -- 62 13 100 % -- -- 07/05/25 0312 -- -- -- 61 16 100 % -- -- 07/05/25 0200 -- -- -- 59 14 100 % -- -- 07/05/25 0100 -- -- -- 62 14 100 % -- -- 07/05/25 0000 -- -- -- 71 13 100 % -- -- 07/04/25 2306 -- -- -- 65 20 100 % -- -- 07/04/25 2300 -- -- -- 67 14 100 % -- -- 07/04/25 2257 159/62 -- -- 70 19 100 % -- -- 07/04/25 2231 (!) 123/45 -- -- 64 17 100 % -- -- 07/04/25 2142 (!) 110/52 -- -- 65 17 100 % -- -- 07/04/252040 -- -- -- 66 22 100 % -- -- 07/04/25 1812 (!) 144/54 -- -- 64 16 100 % -- -- 07/04/25 1609 -- 36.3 C (97.4 F) Axillary -- -- -- -- -- 07/04/25 1606 (!) 131/66 -- -- 72 14 100 % -- -- I/Os: Intake/Output Summary (Last 24 hours) at 07/05/2025 1108 Last data filed at 07/05/2025 0815 Gross per 24 hour Intake 300 ml Output 200 ml Net 100 ml Weight: Weight on Admission: 105 kg (232 lb 9.4 oz) Wt Readings from Last 5 Encounters: 07/05/25 105 kg (232 lb 5.8 oz) 07/03/25 108 kg (237 lb 9.6 oz) 06/11/25 104 kg (229 lb 0.9 oz) General: NAD, pleasant, cooperative Head: normocephalic, atraumatic Eyes: EOMI, sclera are anicteric ENT: hearing intact to spoken voice, mucus membranes are moist, s/p trach Cardiovascular: +S1 & S2 sounds, regular rate and rhythm with no murmurs/rubs/gallops, there is no LE edema Pulmonary: lungs are with coarse breath sounds Gastrointestinal: abdomen is soft, non-tender, obese Neurological: awake, alert Skin: warm and dry, without rash to forehead, with RIJ HDTC in place Recent Labs: Recent Labs 07/03/25 1351 07/04/25 1634 07/05/25 0341 WBC 7.3 7.4 6.8 HGB 8.0* 7.9* 7.4* HCT 25.1* 24.7* 23.4* MCV 85.4 84.6 85.7 PLT 197 171 179 Lab Results Component Value Date IRON 31 (L) 06/10/2025 TIBC 188 (L) 06/10/2025 FERRITIN 613 (H) 06/02/2025 Lab Results Component Value Date [id number] 1,032 (H) 06/02/2025 FOLATE 12.6 06/02/2025 Recent Labs 07/03/25 1351 07/04/25 1634 07/05/25 0341 NA 134* 132* 132* K 3.9 4.7 4.2 CL 92* 91* 92* CO2 30 29 29 BUN 88* 106* 125* CREATININE 4.14* 4.92* 5.26* GLUCOSE 118* 125* 97 CALCIUM 10.1* 9.9 9.7 MG 2.6 -- -- ANIONGAP 12 12 11 ALBUMIN 2.5* 2.5* 2.5* No results found for: "PTH", "VITD25", "CAION" Lab Results Component Value Date ALT 21 07/05/2025 AST 32 07/05/2025 No results for input(s): "INR", "PROTIME", "PTT" in the last 72 hours. No results for input(s): "COLORU", "CLARITYU", "PH", "PHUR", "LABSPEC", "GLUCOSEU", "BLOODU", "LEUKOCYTESUR", "NITRITE", "BILIRUBINUR", "UROBILINOGEN", "BACTERIA", "AMORPHOUS", "CASTS" in the last 72 hours. No lab exists for component: "PROTEINUA", "KEYTONESU", "RBCUA", "WBCUA", "CRYSTAL" No results for input(s): "NAUR", "KUR", "CLUR" in the last 72 hours. No lab exists for component: "CO2UR", "CRUR" No results found for: "HEPBCAB", HEPCAB Current Inpatient Medications: Scheduled Meds[7] Continuous Meds[8] Assessment Rosa Myers is a 75 y.o. female with PMHx significant for ESRD on HD per Wednesday through Wednesday schedule at [facility], HTN, HLD, CHF, chronic respiratory failure s/p trach/PEG, DM type 2, neuropathy, history of C. difficile colitis, anxiety, depression, morbid obesity who presented with malfunctioning of her RIJ HDTC and was admitted for dialysis following replacement of her tunneled line. Nephrology was consulted for the provision of inpatient dialysis. Plan ESRD on HD per Wednesday through Wednesday schedule at [facility] - patient typically dialyzes per a Wednesday through Wednesday schedule - will plan to dialyze per a MWF schedule while as an inpatient - will plan for a 3 hour 30 minute HD treatment tomorrow 07/06/25 as below: Zwa080 Na 137 K 3 Ca 2.5 HCO3 32 Qb: 400 mL/min Qd: 600 mL/min UF 0-2 L as hemodynamics tolerate - follow chemistries - dose adjust medications to CrCl <10 CKD-MBD - calcium corrected for hypoalbuminemia is acceptable at 9.1 - will check phosphate - follow chemistries Anemia - Hgb is low and below goal - transfusion parameters per primary service - will resume IV EPO 2,600 units with HD sessions - follow CBC Lytes - hyponatremia with serum Na mildly decreased at 132, will address with dialysis - follow chemistries Acid base - stable - follow chemistries Volume/blood pressure - recent blood pressure is improved - carvedilol 3.125 mg BID - midodrine 10 mg TID Access - HDTC Thank you for involving us in the care of this patient. We will continue to follow along with you. Please text/call/page with any questions or concerns. SIGNATURE: James Emanuel DO PATIENT NAME: Rosa Myers ROOM: T2/ A DATE: July 05, 2025 TIME: 11:08 AM PAGER: [phone] OFFICE: [phone] [1] Past Medical History: Diagnosis Date Anxiety Depression Diabetes (HCC) Respiratory failure (HCC) [2] No past surgical history on file. [3] No family history on file. [4] Social History Socioeconomic History Marital status: Single Tobacco Use Smoking status: Never Passive exposure: Past Smokeless tobacco: Never Social Drivers of Health Financial Resource Strain: Patient Unable To Answer (03/08/2025) Received from [facility] Financial Resource Strain (CARDIA) Difficulty of Paying Living Expenses: Patient unable to answer Food Insecurity: Patient Unable To Answer (03/08/2025) Received from [facility] Medical Hunger Vital Sign Worried About Running Out of Food in the Last Year: Patient unable to answer Ran Out of Food in the Last Year: Patient unable to answer Transportation Needs: No Transportation Needs (06/01/2025) PRAPARE - Transportation Lack of Transportation (Medical): No Lack of Transportation (Non-Medical): No Physical Activity: Inactive (07/11/2024) Received from [facility] Exercise Vital Sign Days of Exercise per Week: 0 days Minutes of Exercise per Session: 0 min Stress: No Stress Concern Present (04/18/2025) Received from [facility] [place] of Occupational Health - Occupational Stress Questionnaire Feeling of Stress : Only a little Social Connections: Unknown (03/08/2025) Received from [facility] Medical Social Connection and Isolation Panel [NHANES] Frequency of Communication with Friends and Family: Patient unable to answer Frequency of Social Gatherings with Friends and Family: Patient unable to answer Attends Hinduism Services: Patient unable to answer Active Member of Clubs or Organizations: Patient unable to answer Attends Club or Organization Meetings: Patient unable to answer Marital Status: Intimate Partner Violence: Not At Risk (06/01/2025) Humiliation, Afraid, Rape, and Kick questionnaire Fear of Current or Ex-Partner: No Emotionally Abused: No Physically Abused: No Sexually Abused: No Recent Concern: Intimate Partner Violence - At Risk (03/07/2025) Received from [facility] Medical Domestic Abuse Assessment Do you feel safe in your relationships at home?: Yes Physical Abuse: Denies Verbal Abuse: Denies Possible abuse reported to:: Other (Comment) Housing Stability: Low Risk (06/01/2025) Housing Stability Vital Sign Unable to Pay for Housing in the Last Year: No Number of Times Moved in the Last Year: 1 Homeless in the Last Year: No [5] No Known Allergies [6] Medications Prior to Admission Medication Sig Dispense Refill Last Dose/Taking atorvastatin (Lipitor) 40 MG tablet 1 tablet (40 mg) by Per G Tube route Nightly. 30 tablet 11 busPIRone (Buspar) 5 MG tablet 1 tablet (5 mg) by Per G Tube route 3 times daily. 90 tablet 11 carvedilol (Coreg) 3.125 MG tablet 1 tablet (3.125 mg) by Per G Tube route 2 times daily (with meals). 60 tablet 11 FLUoxetine (PROzac) 20 MG capsule 1 capsule (20 mg) by Per G Tube route daily. 30 capsule 11 furosemide (Lasix) 20 MG tablet Take 1 tablet (20 mg) by mouth Twice a Week. Via PEG, given on wed/Wednesday for weight gain 8 tablet 11 insulin glargine (Lantus) 100 UNIT/ML injection Inject 25 Units under the skin 2 times daily. Insulin Lispro (Humalog) 100 UNIT/ML solution injection Inject 2-12 Units under the skin 3 times daily (with meals). Sliding scale: 150-200 = 2 units, 102-250 = 4 units, 251-300 = 6 units, 301-350 = 8 units, 351-400 = 10 units, 401-450 = 12 units [] miconazole (Micotin) 2 % powder Apply topically 2 times daily for 7 days. 30 g 1 midodrine (Proamatine) 10 MG tablet 1 tablet (10 mg) by Per G Tube route 3 times daily. 90 tablet 0 [7] atorvastatin, 40 mg, Per G Tube, Nightly busPIRone, 5 mg, Per G Tube, TID carvedilol, 3.125 mg, Per G Tube, BID WC FLUoxetine, 20 mg, Per G Tube, Daily insulin glargine, 25 Units, SubCUTAneous, BID insulin lispro, 0-12 Units, SubCUTAneous, TID WC And insulin lispro, 0-12 Units, SubCUTAneous, Nightly levoFLOXacin, 250 mg, Oral, Daily miconazole, , Topical, BID midodrine, 10 mg, Per G Tube, TID mupirocin, , Topical, TID sodium chloride 0.9%, 5-40 mL, IntraVENous, q12h [8] documented in this encounter [facility] 07-05-2025 Progress note Formatting of t his note might be different from the original. Care Management Progress Note Short Medical why still here: Remains for chronic trach/peg, iHD baseline - 5d/wk, iHD today. Nephrology following/consult. Planned Discharge Disposition: Correction/Residential Care ([facility]) Can return when medically ready, will need transportation set up. Barriers/Today we still Wait: Clinical stability, Flight Dynamicist recommendations (comment), Symptomatic control Length of Stay (Days): 1 GMLOS: No GMLOS Documented Case management will continue to follow for discharge planning. [facility] 07-05-2025 Progress note Formatting of t his note might be different from the original. Care Managment Initial Assessment Date: 07/05/2025 Patient Name: Rosa Myers : 1950 Patient Information Source of Information: Patient, Patient Cabinetmaker Helper Name/Contact Information: Marcell العلي [phone] Cognition/Language: Other (Comment) (trach/vent - mouths words) Permission given to speak with patient life assurance representative/caregiver as indicated: Yes Confirmation of Payer with patient/family: Yes Payer Name: [place]: Confirmation of Primary Care Physician: Confirmed (SNF provider) Seen in last 2 years?: Yes Primary Caregiver: Other (Comment) (facility) If assistance needed, confirmed caregiver ready, willing and able to care for patient at discharge: Confirmed with: Living Arrangements Current Residence: Number of Floors Number of Entry Steps: Bed/Bath Levels: Facility: Correction/Residental Care Facility Name: [facility] Plan to Return: Lives with: Other (Comment) (facility) Support Systems: Family members Activities of Daily Living Ambulation: Bathing/Dressing: Elimination/Continence/Toileting : Feeding: Who Assists with Activities of Daily Living: Instrumental Activities of Daily Living Prescription Coverage: Pharmacy Used: Medication Management: Transportation/Shopping: Transportation Mode: Needs Assistance with Transportation at Discharge: Meal Preparation: Laundry/Cleaning: Finances/Bill Paying: Communication: Types of Care Services/Equipment Utilized Care Services: Dialysis Type: Durable Medical Equipment: Patient's Goal/Discharge Plan Patient expects to be discharged to: [facility] Discharge Planning Actions: Continue to follow, Retirement Facility referral indicated [place] of choice: [place] of choice discussed Patient's Choice Rights and [employer] and Collaborative Relationships Disclosed as Indicated for Post-Acute Care: Yes Interdisciplinary Team Engagement: Social Work Referral for: Additional Information: Initial Assessment: Chart reviewed. IA/HRA completed. CM spoke with patient at bedside. Appropriate PPE worn. Patient trach to vent, mouths words and gestures appropriately. Patient from [facility] - LTC bedhold. Has insurance on EHR. PCP at [facility]. Patient requested CM to call son Marcell to discuss discharge planning. CM called Marcell (son) [phone] regarding discharge planning. Introduced myself and role. Discussed LTACH vs SNF and LTC facility. Discussed several recent admissions to hospital. Marcell wishes for patient to return to [facility]. CM tasked RESPIRATORY CARE PROGRAM DIRECTOR to send referral via careport. Confirmed patient is LTC bedhold, iHD wed to Wednesday at facility. Will need transportation to facility. Case management will continue to follow for discharge planning. [facility] 07-05-2025 [facility] Discharg e instructions Santos Jacobs DO - 07/05/2025 11:38 AM EDT Images from the original note were not included. Continuity of Care Form Patient Name: Rosa Myers : 1950 Admit date: 07/04/2025 Discharge date: Code Status Order: Full Code Advance Directives: N Admitting Physician: Griffin Peters MD PCP: No primary care provider on file. Discharging Nurse: Discharging Hospital Unit/Room#: T2-217/T2-217 A Discharging Unit Phone Number: Emergency Contact: Extended Emergency Contact Information Primary Emergency Contact: Marcell Myers Mobile Relation: Son Weatherization Installer needed? No Past Surgical History: No past surgical history on file. Immunization History: There is no immunization history on file for this patient. Active Problems: Medical Problems Problem List * (Principal) ESRD (end stage renal disease) on dialysis (HCC) Anemia Anemia, unspecified type Moderate malnutrition (CMS/HCC) (HCC) (Chronic) Acute metabolic encephalopathy Anxiety and depression Debility Isolation/Infection: Enhanced Contact C. difficile Nurse Assessment: Last Vital Signs: BP (!) 126/39 Pulse 62 Temp 36.3 C (97.3 F) (Temporal) Resp (!) 10 Ht 1.651 m (5' 5") Wt 105 kg (232 lb 5.8 oz) SpO2 100% BMI 38.67 kg/m Last documented pain score (0-10 scale): Last Weight: Wt Readings from Last 1 Encounters: 07/05/25 105 kg (232 lb 5.8 oz) Mental Status: {TERRA Patient Mental Status:94370} IV Access: {TERRA IV Access:84376} Nursing Mobility/ADLs: Walking {OBED ADL:12533::"Independent"} Transfer {OBED ADL:31950::"Independent"} Bathing {OBED ADL:22703::"Independent"} Dressing {OBED ADL:80818::"Independent"} Toileting {OBED ADL:28966::"Independent"} Feeding {OBED ADL:55969::"Independent"} Gear Machinist {OBED ADL:10576::"Independent"} Med Delivery {yes/no:58117} Wound Care Documentation and Therapy: Elimination: Continence: Bowel: {yes/no:} Bladder: {yes/no:} Urinary Catheter: {TERRA Urinary Catheter:21682} Colostomy/Ileostomy/Ileal Conduit: {YES / NO:} Date of Last BM: Intake/Output Summary (Last 24 hours) at 07/05/2025 1137 Last data filed at 07/05/2025 0815 Gross per 24 hour Intake 300 ml Output 200 ml Net 100 ml I/O last 3 completed shifts: In: 0 (0 mL/kg) Out: 200 (1.9 mL/kg) [Stool:200] Weight: 105.5 kg Safety Concerns: {TERRA Safety Concerns:25745} Impairments/Disabilities: {TERRA Impairments/Disabilities:50866} Nutrition Therapy: Current Nutrition Therapy: {TERRA Diet List:95655} Routes of Feeding: {routes of feedin} Liquids: {liquid consistency:90678} Daily Fluid Restriction: {daily fluid restriction:18219} Last Modified Barium Swallow with Video (Video Swallowing Test): {done not done:05867} Treatments at the Time of Hospital Discharge: Respiratory Treatments: Oxygen Therapy: {Therapy; copd oxygen:12159} Ventilator: {TERRA Ventilator:89467} Rehab Therapies: {GEN THERAPY DISCIPLINE [facility]:5270742} Weight Bearing Status/Restrictions: {POD WEIGHT BEARIN} Other Medical Equipment (for information only, NOT a DME order): {Assistive Devices DME:67437} Other Treatments: Patient's personal belongings (please select all that are sent with patient): {TERRA Patient Belongings:40790} RN SIGNATURE: {E-signature:54681} CASE MANAGEMENT/SOCIAL WORK SECTION Inpatient Status Date: 07/04/2025 Discharging to Facility/ Agency [facility] [place] [address] Dialysis Facility (if applicable) Name: Address: Dialysis Schedule: Phone: Fax: Station Cleaning Porter/[employer] Furn[employer] Operator signature: ICIAN SECTION Name: Rosa Myers Prognosis: good Condition at Discharge: stable Rehab Potential (if transferring to Rehab): good Recommended Labs or Other Treatments After Discharge: PT/OT Route: PEG Formula: Nepro w/CARB Steady Delivery Method: Continuous Continuous Advance Tube Feeding? Yes Advancement Volume (mL/hr) 10 Advancement Frequency: Q 4 Hours Continuous Initial Rate (Recommended mL/hr) 20 Continuous Goal Rate (Recommended mL/hr) 40 Tap water 75 ml q 4 hours flush HD M/W/F Mandatory Breath Type: VC+ (Volume Control Plus) Mode: A/C Respiratory Rate: 14 Set Tidal Volume in mL or mL/kg? mL Set Tidal Volume: 340 Breath Constant: I-Time I-TIME: 0.9 Initial FiO2 (%): 50 PEEP (cm H2O): 8 Initiate Oxygen Titration: Yes Oxygen Titration: Assess patient's SpO2 no more often than every 2 to 5 minutes after start of oxygen therapy until SpO2 goal achieved then assess patient's SpO2 30 minutes later then daily and PRN. Below Goal: increase oxygen by 10% (or 2 L/min) no more often than every 2 to 5 minutes until SpO2 goal is achieved. If SpO2 goal cannot be achieved with a 100% FiO2 (or maximum L/min flow rate) call the ordering provider for further orders. Above Goal: decrease oxygen by 5% (or 1 L/min) no more often than approximately every 30 to 60 minutes for oxygen decrease until SpO2 goal is achieved. If on oxygen at home do not titrate below home oxygen level. The individual is being admitted to a nursing facility directly from an [facility] or a unit of a hospital that is not operated by or licensed by [facility] under section 5119.14 or 5160-3-15.1 5 The individual requires the level of services provided by a nursing facility for the condition for which he or she was treated in the hospital and, Physician Certification: I certify the above information and transfer of Rosa Myers is necessary for the continuing treatment of the diagnosis listed and that she requires long-term facility for greater than 30 days. Update Admission H&P: No change in H&P PHYSICIAN SIGNATURE: documented in this encounter [facility] 07-05-2025 Consult note Associated Order (s): IP CONSULT TO NEPHROLOGY Images from the original note were not included. NEPHROLOGY CONSULT NOTE PATIENT NAME: Rosa Myers ROOM: T2-217/T2217 A SERVICE DATE: 07/05/2025 SERVICE TIME: 11:08 AM LENGTH OF STAY: 1 day(s) REFERRING PHYSICIAN: Santos Jacobs DO PRIMARY CARE PHYSICIAN: No primary care provider on file. OUTPATIENT LOGISTICS PLANNING ENGINEER: [facility] (Dr. Loredo) Subjective/HPI Rosa Myers is a 75 y.o. female with PMHx significant for ESRD on HD (per Wednesday through Wednesday schedule at [facility]), HTN, HLD, CHF, chronic respiratory failure (s/p trach/PEG), DM type 2, neuropathy, history of C. difficile colitis, anxiety, depression, morbid obesity who initially presented to the ED on 07/03/25 with malfunctioning of her RIJ HDTC, and she was admitted for dialysis following replacement of her tunneled line per IR. The nephrology service was consulted for the provision of inpatient dialysis. Reportedly she last received dialysis last week on 06/28/25 prior to presentation to the hospital. Patient was ultimately administered a HD session overnight with 1 L UF. She was seen and examined this morning. She was unable to participate in conversation but remains interactive on evaluation. Review of Systems: unable to obtain due to patient's current condition Medical History: Medical History[1] Surgical History[2] Family History[3] Social History[4] Allergies: Allergies[5] Prior to Admission Medications: Prescriptions Prior to Admission[6] Objective Physical Exam Patient Vitals for the past 24 hrs: BP Temp Temp src Pulse Resp SpO2 Height Weight 07/05/25 1016 -- -- -- 65 17 100 % -- -- 07/05/25 1000 (!) 126/39 -- -- 66 17 100 % -- -- 07/05/25 0909 124/98 -- -- 66 -- -- -- -- 07/05/25 0900 124/98 -- -- 66 15 100 % -- 105 kg (232 lb 5.8 oz) 07/05/25 0815 (!) 112/45 -- -- 64 18 100 % -- -- 07/05/25 0810 (!) 123/42 -- -- 67 21 100 % -- -- 07/05/25 0800 99/87 -- -- 64 15 100 % -- -- 07/05/25 0745 (!) 86/64 36.3 C (97.3 F) Temporal 65 16 100 % -- -- 07/05/25 0730 (!) 113/44 -- -- 59 15 100 % -- -- 07/05/25 0715 104/76 -- -- 62 13 100 % -- -- 07/05/25 0704 -- -- -- -- -- -- 1.651 m (5' 5") -- 07/05/25 07 (!) 124/44 -- -- 63 18 100 % -- -- 07/05/25 0645 101/64 -- -- 61 (!) 8 100 % -- -- 07/05/25 0630 105/54 -- -- 61 14 100 % -- -- 07/05/2515 91/68 -- -- 65 17 100 % -- -- 07/05/25 0603 -- -- -- 62 -- 100 % -- -- 07/05/25 0600 (!) 117/48 -- -- 64 13 100 % -- 105 kg (232 lb 9.4 oz) 07/05/25 0545 (!) 111/47 -- -- 63 (!) 5 100 % -- -- 07/05/25 0530 109/52 -- -- 62 (!) 6 100 % -- -- 07/05/25 0515 110/51 -- -- 63 (!) 10 100 % -- -- 07/05/25 0510 105/51 -- -- 61 (!) 8 100 % -- -- 07/05/25 0505 -- -- -- 63 (!) 0 100 % -- -- 07/05/25 0500 -- -- -- 65 15 100 % -- -- 07/05/25 0434 (!) 133/49 -- -- 62 13 100 % -- -- 07/05/25 0312 -- -- -- 61 16 100 % -- -- 07/05/25 0200 -- -- -- 59 14 100 % -- -- 07/05/25 0100 -- -- -- 62 14 100 % -- -- 07/05/25 0000 -- -- -- 71 13 100 % -- -- 07/04/25 2306 -- -- -- 65 20 100 % -- -- 07/04/25 2300 -- -- -- 67 14 100 % -- -- 07/04/25 2257 159/62 -- -- 70 19 100 % -- -- 07/04/25 2231 (!) 123/45 -- -- 64 17 100 % -- -- 07/04/25 2142 (!) 110/52 -- -- 65 17 100 % -- -- 07/04/25 2041 -- -- -- 66 22 100 % -- -- 07/04/25 1812 (!) 144/54 -- -- 64 16 100 % -- -- 07/04/25 1609 -- 36.3 C (97.4 F) Axillary -- -- -- -- -- 07/04/25 1606 (!) 131/66 -- -- 72 14 100 % -- -- I/Os: Intake/Output Summary (Last 24 hours) at 07/05/2025 1108 Last data filed at 07/05/2025 0815 Gross per 24 hour Intake 300 ml Output 200 ml Net 100 ml Weight: Weight on Admission: 105 kg (232 lb 9.4 oz) Wt Readings from Last 5 Encounters: 07/05/25 105 kg (232 lb 5.8 oz) 07/03/25 108 kg (237 lb 9.6 oz) 06/11/25 104 kg (229 lb 0.9 oz) General: NAD, pleasant, cooperative Head: normocephalic, atraumatic Eyes: EOMI, sclera are anicteric ENT: hearing intact to spoken voice, mucus membranes are moist, s/p trach Cardiovascular: +S1 & S2 sounds, regular rate and rhythm with no murmurs/rubs/gallops, there is no LE edema Pulmonary: lungs are with coarse breath sounds Gastrointestinal: abdomen is soft, non-tender, obese Neurological: awake, alert Skin: warm and dry, without rash to forehead, with RIJ HDTC in place Recent Labs: Recent Labs 07/03/25 1351 07/04/25 1634 07/05/25 0341 WBC 7.3 7.4 6.8 HGB 8.0* 7.9* 7.4* HCT 25.1* 24.7* 23.4* MCV 85.4 84.6 85.7 PLT 197 171 179 Lab Results Component Value Date IRON 31 (L) 06/10/2025 TIBC 188 (L) 06/10/2025 FERRITIN 613 (H) 06/02/2025 Lab Results Component Value Date [id number] 1,032 (H) 06/02/2025 FOLATE 12.6 06/02/2025 Recent Labs 07/03/25 1351 07/04/25 1634 07/05/25 0341 NA 134* 132* 132* K 3.9 4.7 4.2 CL 92* 91* 92* CO2 30 29 29 BUN 88* 106* 125* CREATININE 4.14* 4.92* 5.26* GLUCOSE 118* 125* 97 CALCIUM 10.1* 9.9 9.7 MG 2.6 -- -- ANIONGAP 12 12 11 ALBUMIN 2.5* 2.5* 2.5* No results found for: "PTH", "VITD25", "CAION" Lab Results Component Value Date ALT 21 07/05/2025 AST 32 07/05/2025 No results for input(s): "INR", "PROTIME", "PTT" in the last 72 hours. No results for input(s): "COLORU", "CLARITYU", "PH", "PHUR", "LABSPEC", "GLUCOSEU", "BLOODU", "LEUKOCYTESUR", "NITRITE", "BILIRUBINUR", "UROBILINOGEN", "BACTERIA", "AMORPHOUS", "CASTS" in the last 72 hours. No lab exists for component: "PROTEINUA", "KEYTONESU", "RBCUA", "WBCUA", "CRYSTAL" No results for input(s): "NAUR", "KUR", "CLUR" in the last 72 hours. No lab exists for component: "CO2UR", "CRUR" No results found for: "HEPBCAB", HEPCAB Current Inpatient Medications: Scheduled Meds[7] Continuous Meds[8] Assessment Rosa Myers is a 75 y.o. female with PMHx significant for ESRD on HD per Wednesday through Wednesday schedule at [facility], HTN, HLD, CHF, chronic respiratory failure s/p trach/PEG, DM type 2, neuropathy, history of C. difficile colitis, anxiety, depression, morbid obesity who presented with malfunctioning of her RI HDTC and was admitted for dialysis following replacement of her tunneled line. Nephrology was consulted for the provision of inpatient dialysis. Plan ESRD on HD per Wednesday through Wednesday schedule at [facility] - patient typically dialyzes per a Wednesday through Wednesday schedule - will plan to dialyze per a MWF schedule while as an inpatient - will plan for a 3 hour 30 minute HD treatment tomorrow 07/06/25 as below: [id number] Na 137 K 3 Ca 2.5 HCO3 32 Qb: 400 mL/min Qd: 600 mL/min UF 0-2 L as hemodynamics tolerate - follow chemistries - dose adjust medications to CrCl <10 CKD-MBD - calcium corrected for hypoalbuminemia is acceptable at 9.1 - will check phosphate - follow chemistries Anemia - Hgb is low and below goal - transfusion parameters per primary service - will resume IV EPO 2,600 units with HD sessions - follow CBC Lytes - hyponatremia with serum Na mildly decreased at 132, will address with dialysis - follow chemistries Acid base - stable - follow chemistries Volume/blood pressure - recent blood pressure is improved - carvedilol 3.125 mg BID - midodrine 10 mg TID Access - HDTC Thank you for involving us in the care of this patient. We will continue to follow along with you. Please text/call/page with any questions or concerns. SIGNATURE: James Emanuel DO PATIENT NAME: Rosa Myers ROOM: [address] DATE: July 05, 2025 TIME: 11:08 AM PAGER: [phone] OFFICE: [phone] [1] Past Medical History: Diagnosis Date Anxiety Depression Diabetes (HCC) Respiratory failure (HCC) [2] No past surgical history on file. [3] No family history on file. [4] Social History Socioeconomic History Marital status: Single Tobacco Use Smoking status: Never Passive exposure: Past Smokeless tobacco: Never Social Drivers of Health Financial Resource Strain: Patient Unable To Answer (03/08/2025) Received from [facility] Financial Resource Strain (CARDIA) Difficulty of Paying Living Expenses: Patient unable to answer Food Insecurity: Patient Unable To Answer (03/08/2025) Received from [facility] Hunger Vital Sign Worried About Running Out of Food in the Last Year: Patient unable to answer Ran Out of Food in the Last Year: Patient unable to answer Transportation Needs: No Transportation Needs (06/01/2025) PRAPARE - Transportation Lack of Transportation (Medical): No Lack of Transportation (Non-Medical): No Physical Activity: Inactive (07/11/2024) Received from [facility] Exercise Vital Sign Days of Exercise per Week: 0 days Minutes of Exercise per Session: 0 min Stress: No Stress Concern Present (04/18/2025) Received from [facility] [place] of Occupational Health - Occupational Stress Questionnaire Feeling of Stress : Only a little Social Connections: Unknown (03/08/2025) Received from [facility] Medical Social Connection and Isolation Panel [NHANES] Frequency of Communication with Friends and Family: Patient unable to answer Frequency of Social Gatherings with Friends and Family: Patient unable to answer Attends Hinduism Services: Patient unable to answer Active Member of Clubs or Organizations: Patient unable to answer Attends Club or Organization Meetings: Patient unable to answer Marital Status: Intimate Partner Violence: Not At Risk (06/01/2025) Humiliation, Afraid, Rape, and Kick questionnaire Fear of Current or Ex-Partner: No Emotionally Abused: No Physically Abused: No Sexually Abused: No Recent Concern: Intimate Partner Violence - At Risk (03/07/2025) Received from [facility] Medical Domestic Abuse Assessment Do you feel safe in your relationships at home?: Yes Physical Abuse: Denies Verbal Abuse: Denies Possible abuse reported to:: Other (Comment) Housing Stability: Low Risk (06/01/2025) Housing Stability Vital Sign Unable to Pay for Housing in the Last Year: No Number of Times Moved in the Last Year: 1 Homeless in the Last Year: No [5] No Known Allergies [6] Medications Prior to Admission Medication Sig Dispense Refill Last Dose/Taking atorvastatin (Lipitor) 40 MG tablet 1 tablet (40 mg) by Per G Tube route Nightly. 30 tablet 11 busPIRone (Buspar) 5 MG tablet 1 tablet (5 mg) by Per G Tube route 3 times daily. 90 tablet 11 carvedilol (Coreg) 3.125 MG tablet 1 tablet (3.125 mg) by Per G Tube route 2 times daily (with meals). 60 tablet 11 FLUoxetine (PROzac) 20 MG capsule 1 capsule (20 mg) by Per G Tube route daily. 30 capsule 11 furosemide (Lasix) 20 MG tablet Take 1 tablet (20 mg) by mouth Twice a Week. Via PEG, given on wed/Wednesday for weight gain 8 tablet 11 insulin glargine (Lantus) 100 UNIT/ML injection Inject 25 Units under the skin 2 times daily. Insulin Lispro (Humalog) 100 UNIT/ML solution injection Inject 2-12 Units under the skin 3 times daily (with meals). Sliding scale: 150-200 = 2 units, 102-250 = 4 units, 251-300 = 6 units, 301-350 = 8 units, 351-400 = 10 units, 401-450 = 12 units [] miconazole (Micotin) 2 % powder Apply topically 2 times daily for 7 days. 30 g 1 midodrine (Proamatine) 10 MG tablet 1 tablet (10 mg) by Per G Tube route 3 times daily. 90 tablet 0 [7] atorvastatin, 40 mg, Per G Tube, Nightly busPIRone, 5 mg, Per G Tube, TID carvedilol, 3.125 mg, Per G Tube, BID WC FLUoxetine, 20 mg, Per G Tube, Daily insulin glargine, 25 Units, SubCUTAneous, BID insulin lispro, 0-12 Units, SubCUTAneous, TID WC And insulin lispro, 0-12 Units, SubCUTAneous, Nightly levoFLOXacin, 250 mg, Oral, Daily miconazole, , Topical, BID midodrine, 10 mg, Per G Tube, TID mupirocin, , Topical, TID sodium chloride 0.9%, 5-40 mL, IntraVENous, q12h [8] [facility] 07-05-2025 Note Return referral plac ed to [facility] via [facility] per TCC request. Await review and response regarding ability to accept. TCC notified. [facility] 07-05-2025 Progress note Formatting of t his note might be different from the original. Return referral placed to [facility] via [facility] per TCC request. Await review and response regarding ability to accept. TCC notified. T [facility] 07-05-2025 Nurse Note Patient Name: Rosa Myers Patient : 1950 Acct: [id number] Date of Admission: 07/04/2025 Room/Bed: T2-217/T2-217 A Code Status: Full Code Allergies: Allergies[1] Diagnosis: Problem List[2] Treatment: Hemodialysis 1:1 Priority: Routine Location: ICU Diabetic: Yes NPO: Yes Isolation Precautions: Contact Consent for Treatment Verified: Yes Blood Consent Verified: Not Applicable ICEBOAT: Identify, Consent, Equipment, HepB Status, Orders Complete, Access Verified, Timeliness Second Clinician Verifying: Romana Kumar RN Time out performed prior to access at 0505. Report Received from Primary RN at 0317. Primary RN (First Initial, Last Name, Title): Romana Kumar RN Incapacitated Nurse Education Completed: Yes KT HBsAg ONLY: Date Drawn: July 04, 2025 Results: Negative HBsAb: Date Drawn: July 04, 2025 Results: Susceptible <10 Order Dialyzer: Nipro Na+ Modeling: Not Applicable Dialysate Temperature (C): 36 Blood Flow Rate (BFR): 400 Dialysate Flow Rate (DFR): 600 Access to be Utilized Access: Tunneled Catheter Location: Internal Jugular Side: Right Needle gauge: Not Applicable + Bruit/Thrill: Not Applicable First Use X-ray Verified: Yes OK to use line order: Yes Site Assessment: Signs and Symptoms of Infection/Inflammation: None If yes: Not Applicable Dressing: Dry and Intact Site Prep: Medical Aseptic Technique Dressing Changed this Treatment: No If yes, by whom: NA - not changed today Date of Last Dressing Change: July 04, [address]?: Yes Red Alcohol Caps in place?: Yes Gauze Dressing?: No Non-Dialysis Use?: No Comment: Flows: Good and Patent If access problem, who was notified: Pre and Post-Assessment Patient Vitals for the past 8 hrs: Level of Consciousness Oriented X Heart Rhythm Bilateral Breath Sounds Skin Color Skin Condition/Temp Abdomen Inspection Bowel Sounds (All Quadrants) Edema Generalized Edema RUE Edema LUE Edema RLE Edema LLE Edema Pre-Hemodialysis Comments 07/05/25433 Responds to voice (1) -- Regular Rhonchi Ecchymosis Warm Soft;Nondistended Active Right upper extremity;Left upper extremity;Right lower extremity;Left lower extremity +1 Trace Trace +1 +1 Patient nods her head in agreement to dialysis treament. Consent obtained by this RN. 07/05/25 0745 -- -- -- Clear -- -- Soft;Nondistended;Rounded;Gastro stomy tube Active Left upper extremity;Right lower extremity;Left lower extremity;Right upper extremity +1 Moderate Moderate +1 +1 -- 07/05/25814 Alert (0) 4 Regular Clear Ecchymosis Warm Soft;Nondistended Active Left upper extremity;Right lower extremity;Left lower extremity;Right upper extremity +1 Pitting 2mm Pitting 2mm +1 +1 -- Labs Lab Results Component Value Date/Time WBC 6.8 07/05/2025340 HGB 7.4 (L) 07/05/2025340 HCT 23.4 (L) 07/05/2025340 PLT 179 07/05/2025340 NA 132 (L) 07/05/2025340 K 4.2 07/05/2025340 CL 92 (L) 07/05/2025340 CO2 29 07/05/2025340 BUN 125 (H) 07/05/2025340 CREATININE 5.26 (H) 07/05/2025340 CALCIUM 9.7 07/05/2025340 IV Drips and Rate/Dose Continuous Meds[3] Safety - Before each treatment: Dialysis Machine No.: [id number] RO Machine Number: [id number] Dialyzer Lot No.: [id number] Tubing Lot Number: [id number] All Connections Secure: Yes Venous Parameters Set: Yes Arterial Parameters Set: Yes NS Bag: Yes Saline Line Double Clamped: Yes Dialyzer: Nipro Prime Volume (mL): 200 mL RO Machine Number: [id number] RO Machine Log Sheet Completed: Yes Machine Alarm Self Test: Completed, Passed (The machine passed all tests at 0417.) (07/05/25433) Air Foam Detector: Tested, Proper Function Extracorporeal Circuit Tested for Integrity: Yes Machine Conductivity: 14.3 Manual Conductivity: 14.4 Manual Ph: 7.2 Bleach Test (Neg): Yes Bath Temperature: 36 C (96.8 F) Conductivity Meter Serial #: [id number] Machine Functioning Alarm Free? Yes Dialysis Bath: K+ (Potassium): 3 Ca+ (Calcium): 2.5 Na+ (Sodium): 137 HCO3 (Bicarb): 32 Chlorine Testing - Before each treatment and every 4 hours: Time On: 509 Time Off: 809 Treatment Goal: 1L Weight Height: 165.1 cm (5' 5") (07/05/25703) Weight: 105 kg (232 lb 5.8 oz) (07/05/25899) BMI (Calculated): 38.67 (07/05/25899) 1st check: less than 0.1 ppm at: 0417 2nd check: less than 0.1 ppm at: 0615 3rd check: Not Applicable (if greater than 0.1 ppm, then check every 30 minutes from secondary) Access Flows and Pressures Patient Vitals for the past 8 hrs: Blood Flow Rate (mL/min) Ultrafiltration Rate (ml/hr) Arterial Pressure (mmHg) Venous Pressure (mmHg) TMP DFR Access Visible Intra-Hemodialysis Comments 07/05/25 0510 200 mL/min 500 ml/hr -60 mmHg 60 mmHg 50 600 Yes Treatment initiated as ordered. All lines secured, bed in lowest and locked position, and call light is within reach 07/05/25 0515 400 mL/min 500 ml/hr -70 mmHg 90 mmHg 90 600 Yes BFR to 400 07/05/25 0530 400 mL/min 500 ml/hr -90 mmHg 100 mmHg 90 600 Yes Patient resting. UF Removed- 210 07/05/25 0545 400 mL/min 500 ml/hr -100 mmHg 100 mmHg 80 600 Yes Patient resting. UF Removed- 316 07/05/25 0600 400 mL/min 500 ml/hr -110 mmHg 100 mmHg 90 600 Yes Primary RN at bedside for trach/vent management. UF Removed- 436 07/05/25 0615 400 mL/min 500 ml/hr -100 mmHg 110 mmHg 90 600 Yes Primary RN at bedside for trach/vent management. UF Removed- 544 07/05/25 0630 400 mL/min 500 ml/hr -110 mmHg 110 mmHg 90 600 Yes Patient resting. UF Removed- 673 07/05/25 0645 400 mL/min 500 ml/hr -110 mmHg 110 mmHg 80 600 Yes Patient reminded not to attempt to remove CVC dressing. Dressing reinforced by this RN. UF Removed- 825 07/05/25 0700 400 mL/min 500 ml/hr -110 mmHg 100 mmHg 80 600 Yes Bicarb changed. UF Removed- 905 07/05/25 0715 400 mL/min 500 ml/hr -110 mmHg 110 mmHg 80 600 Yes Patient resting. UF Removed- 1029 07/05/25 0730 400 mL/min 500 ml/hr -110 mmHg 110 mmHg 90 600 Yes Patient resting. UF Removed- 1145 07/05/25 0745 400 mL/min 500 ml/hr -140 mmHg 130 mmHg 90 600 Yes Primary RN at bedside. UF Removed- 1284 07/05/25 0800 400 mL/min 500 ml/hr -110 mmHg 110 mmHg 80 600 Yes Patient resting, UF Removed- 1406 07/05/25 0810 0 mL/min 0 ml/hr -- -- -- 0 Yes Treatment completed as ordered and blood returned to patient per policy. UF Removed- 1500 Vital Signs Patient Vitals for the past 24 hrs: BP Temp Temp src Pulse Resp SpO2 Height Weight 07/05/25908 124/98 -- -- 66 -- -- -- -- 07/05/25899 124/98 -- -- 66 15 100 % -- 105 kg (232 lb 5.8 oz) 07/05/25814 (!) 112/45 -- -- 64 18 100 % -- -- 07/05/25809 (!) 123/42 -- -- 67 21 100 % -- -- 07/05/25799 99/87 -- -- 64 15 100 % -- -- 07/05/2545 (!) 86/64 36.3 C (97.3 F) Temporal 65 16 100 % -- -- 07/05/25729 (!) 113/44 -- -- 59 15 100 % -- -- 07/05/25714 104/76 -- -- 62 13 100 % -- -- 07/05/25703 -- -- -- -- -- -- 1.651 m (5' 5") -- 07/05/25 0700 (!) 124/44 -- -- 63 18 100 % -- -- 07/05/25 0645 101/64 -- -- 61 (!) 8 100 % -- -- 07/05/25 0630 105/54 -- -- 61 14 100 % -- -- 07/05/25 0615 91/68 -- -- 65 17 100 % -- -- 07/05/25 0603 -- -- -- 62 -- 100 % -- -- 07/05/25 0600 (!) 117/48 -- -- 64 13 100 % -- 105 kg (232 lb 9.4 oz) 07/05/25 0545 (!) 111/47 -- -- 63 (!) 5 100 % -- -- 07/05/25 0530 109/52 -- -- 62 (!) 6 100 % -- -- 07/05/25 0515 110/51 -- -- 63 (!) 10 100 % -- -- 07/05/25 0510 105/51 -- -- 61 (!) 8 100 % -- -- 07/05/25 0505 -- -- -- 63 (!) 0 100 % -- -- 07/05/25 0500 -- -- -- 65 15 100 % -- -- 07/05/25 0434 (!) 133/49 -- -- 62 13 100 % -- -- 07/05/25 0312 -- -- -- 61 16 100 % -- -- 07/05/25 0200 -- -- -- 59 14 100 % -- -- 07/05/25 0100 -- -- -- 62 14 100 % -- -- 07/05/25 0000 -- -- -- 71 13 100 % -- -- 07/04/25 2306 -- -- -- 65 20 100 % -- -- 07/04/25 2300 -- -- -- 67 14 100 % -- -- 07/04/257 159/62 -- -- 70 19 100 % -- -- 07/04/25 2231 (!) 123/45 -- -- 64 17 100 % -- -- 10/08/25 2142 (!) 110/52 -- -- 65 17 100 % -- -- 07/04/25 2041 -- -- -- 66 22 100 % -- -- 07/04/25 1812 (!) 144/54 -- -- 64 16 100 % -- -- 07/04/25 1609 -- 36.3 C (97.4 F) Axillary -- -- -- -- -- 07/04/25 1606 (!) 131/66 -- -- 72 14 100 % -- -- Post-Dialysis Arterial Catheter Locking Solution: Heparin (1000units:1ml) Volume (ml): 2 Venous Catheter Locking Solution: Heparin (1000units:1ml) Volume (ml): 2.1 Post-Treatment Procedures: Catheter capped, clamped and heparinized x 2 ports, Blood returned (Red CUROS Caps) Machine Disinfection Process: Acid/Vinegar Clean, Heat Disinfect, Exterior Machine Disinfection Rinseback Volume (mL): 300 mL Total Liters Processed (L/min): 69 L/min Dialyzer Clearance: Clear Hemodialysis Intake (ml): 500 ml Hemodialysis Output (ml): 1500 ml NET Removed (ml): 1000 ml Tolerated Treatment: Fair Interventions Taken: (None needed) Patient Response to Treatment: Stable Physician Notified: Yes Patient Disposition: Remain in ICU/ED Charge: $ IP Hemodialysis Charge: Hemodialysis Provider Notification Handoff complete and report given to Primary RN at 0815. Primary RN (First Initial, Last Name, Title): Carlos Kent RN Education Person Educated: Patient Knowledge Base: Substantial Barriers to Learning?: None Preferred method of Learning: Oral Topic(s): Emergency and Procedural Teaching Tools: Explanation Response to Education: Verbalized Understanding [1] No Known Allergies [2] Patient Active Problem List Diagnosis Anemia Anemia, unspecified type Moderate malnutrition (CMS/HCC) (HCC) Acute metabolic encephalopathy Anxiety and depression Debility ESRD (end stage renal disease) on dialysis (HCC) [3] [facility] 07-05-2025 Nurse Note This RN reached out to Dr. Powell regarding the patient's diastolic blood pressure being less than [address] Powell stated that the patient is okay for treatment as long as her MAP is greater than 60. If her MAP is less than 60, the dialysis treatment is to be terminated. This RN read back the order to Dr. Powell and he confirmed. [facility] 07-04-2025 Emergency department Note Report given to RYNE Browning on T2 ICU [facility] 07-04-2025 Emergency department Note Report given to RYNE Browning on T2 ICU Patient incontinent of stool. Cleaned and repositioned to her R side with wedges. Kangaroo pump requested as well as PEG nutrition EMERGENCY DEPARTMENT ENCOUNTER Pt Name: Rosa Myers Birthdate 1950 Date of evaluation: 07/04/2025 ED Provider: Re Maciel MD CHIEF COMPLAINT Chief Complaint Patient presents with Other Pt here from intermediate care facility to have dialysis catheter replaced. Procedure completed, here for dialysis before transported back. Pt is trach/vent dependent and oriented via mouthing words and nodding head. PEG tube in place HISTORY OF PRESENT ILLNESS (Location/Symptom, Timing/Onset, Context/Setting, Quality, Duration, Modifying Factors, Severity) Note limiting factors. I wore appropriate PPE for the entirety of this encounter. HPI Rosa Myers is a 75 y.o. who presents to the emergency department for dialysis. Patient recently got her dialysis catheter replaced. She is normally Wednesday through Wednesday. Did not get dialyzed Wednesday or today yet. Been having issues with the dialysis catheter. Nursing facility will not take patient back until she get dialyzed. Nursing Notes were reviewed. Limitations to history: None and Altered mental status/confusion Outside historians: None REVIEW OF SYSTEMS Review of Systems Pertinent positives and negatives as per HPI. PAST MEDICAL HISTORY Medical History[1] SURGICAL HISTORY Surgical History[2] CURRENT MEDICATIONS Previous Medications ATORVASTATIN (LIPITOR) 40 MG TABLET 1 tablet (40 mg) by Per G Tube route Nightly. BUSPIRONE (BUSPAR) 5 MG TABLET 1 tablet (5 mg) by Per G Tube route 3 times daily. CARVEDILOL (COREG) 3.125 MG TABLET 1 tablet (3.125 mg) by Per G Tube route 2 times daily (with meals). FLUOXETINE (PROZAC) 20 MG CAPSULE 1 capsule (20 mg) by Per G Tube route daily. FUROSEMIDE (LASIX) 20 MG TABLET Take 1 tablet (20 mg) by mouth Twice a Week. Via PEG, given on wed/Wednesday for weight gain INSULIN GLARGINE (LANTUS) 100 UNIT/ML INJECTION Inject 25 Units under the skin 2 times daily. INSULIN LISPRO (HUMALOG) 100 UNIT/ML SOLUTION INJECTION Inject 2-12 Units under the skin 3 times daily (with meals). Sliding scale: 150-200 = 2 units, 102-250 = 4 units, 251-300 = 6 units, 301-350 = 8 units, 351-400 = 10 units, 401-450 = 12 units MIDODRINE (PROAMATINE) 10 MG TABLET 1 tablet (10 mg) by Per G Tube route 3 times daily. ALLERGIES Patient has no known allergies. FAMILY HISTORY Family History[3] SOCIAL HISTORY Social History[4] SCREENINGS PHYSICAL EXAM ED Triage Vitals Temp Heart Rate Resp BP 07/04/25 1609 07/04/25 1606 07/04/25 1606 07/04/25 1606 36.3 C (97.4 F) 72 14 (!) 131/66 SpO2 Temp Source Heart Rate Source Patient Position 07/04/25 1606 07/04/25 1609 -- -- 100 % Axillary BP Location FiO2 (%) -- 07/04/25 1555 40 % Physical Exam DIAGNOSTIC RESULTS RADIOLOGY (Per Emergency Physician): Interpretation per the Radiologist below, if available at the time of this note: No orders to display LABS: Labs Reviewed CBC WITH AUTO DIFFERENTIAL - Abnormal Result Value Auto WBC 7.4 RBC 2.92 (*) Hemoglobin 7.9 (*) Hematocrit 24.7 (*) MCV 84.6 MCH 27.1 MCHC 32.0 RDW 19.6 (*) Platelets 171 MPV 10.0 nRBC 0.0 Neutrophils Relative 73.6 Lymphocytes Relative 12.5 (*) Monocytes Relative 10.3 Eosinophils Relative 2.4 Basophils Relative 0.7 Immature Grans % 0.5 Neutrophils Absolute 5.4 Lymphocytes Absolute 0.9 (*) Monocytes Absolute 0.8 Eosinophils Absolute 0.2 Basophils Absolute 0.1 Immature Grans Absolute 0.0 COMPREHENSIVE METABOLIC PANEL - Abnormal SODIUM 132 (*) POTASSIUM 4.7 CHLORIDE 91 (*) CARBON DIOXIDE 29 ANION GAP 12 UREA NITROGEN 106 (*) CREATININE 4.92 (*) GLUCOSE 125 (*) CALCIUM 9.9 AST (SGOT) 40 (*) ALT 36 (*) ALKALINE PHOSPHATASE 134 ALBUMIN 2.5 (*) BILIRUBIN, TOTAL 0.6 TOTAL PROTEIN 6.7 eGFR 8.6 (*) NT PRO BNP - Abnormal NT PRO BNP 86,808 (*) Narrative: In patients with suspected acute HF, NT-proBNP age-related cut-points are 450, 900, and 1800 pg/mL for ages <50, 50-75, and >75 years respectively. NT-proBNP concentration <300 pg/mL provides a very high NPV for HF in an acute setting, independent of age. In a non-acute setting, heart failure is unlikely with a NT-proBNP concentration <125 pg/mL while a value >600 pg/mL is likely due to heart failure. Patients with levels in the elizabeth zone (between rule-out and rule-in levels) need extra physician attention and ancillary testing. For the unusual patient aged <50 years with severe CKD, a cut point of 1,200 ng/L for NT-proBNP would be indicated. Testing is performed on a new assay on a new instrument and values may not correlate well with previous values. HEPATITIS B SURFACE ANTIGEN - Normal HEPATITIS B VIRUS SURFACE AG Not Detected HEPATITIS B SURFACE ANTIBODY HEPATITIS B VIRUS SURFACE AB <8.0 Narrative: Interpretation: <8.0 Non-Reactive 8.0-11.9 Equivocal >= 12.0 Ab Detected Note: If an equivocal result is interpreted, an antibody status is unable to be determined. Collect new specimen if clinically indicated. All other labs were within normal range or not returned as of this dictation. EMERGENCY DEPARTMENT COURSE and DIFFERENTIAL DIAGNOSIS/MDM: Vitals: Vitals: 07/04/25 1606 07/04/25 1609 07/04/25 1812 BP: (!) 131/66 (!) 144/54 Pulse: 72 64 Resp: 14 16 Temp: 36.3 C (97.4 F) TempSrc: Axillary SpO2: 100% 100% The patient presented with a chief complaint of need for dialysis. Patient follows up with [facility]. Reach out to Dr. Powell who is simulation specialist today for [facility] and informed him of the patient. He will help arrange dialysis before patient goes back to facility. However unable to get dialysis while in the ED. Will need admission. Admitted to [facility] of the patient get dialysis and afterwards will be appropriate for discharge back to her long-term facility. ED Course as of 07/04/251910Jul 04, 2025 1731 Messaged Normal for admission [TC] ED Course User Index [TC] Re Maciel MD Diagnoses as of 07/04/251910 ESRD (end stage renal disease) on dialysis (HCC) ED Medications managed: Medications atorvastatin (Lipitor) tablet 40 mg (has no administration in time range) busPIRone (Buspar) tablet 5 mg (has no administration in time range) carvedilol (Coreg) tablet 3.125 mg (has no administration in time range) FLUoxetine (PROzac) capsule 20 mg (has no administration in time range) insulin glargine (Lantus) injection 25 Units (has no administration in time range) Insulin Lispro (Humalog) injection 0-12 Units ( SubCUTAneous Not Given 07/04/251907) And Insulin Lispro (Humalog) injection 0-12 Units (has no administration in time range) levoFLOXacin (Levaquin) tablet 250 mg (has no administration in time range) glucose oral gel 15 g (has no administration in time range) dextrose 50 % solution 12.5 g (has no administration in time range) glucagon (human recombinant) injection 1 mg (has no administration in time range) dextrose 5 % infusion (has no administration in time range) PROCEDURES: Unless otherwise noted below, none Procedures FINAL IMPRESSION 1. ESRD (end stage renal disease) on dialysis (HCC) DISPOSITION Admit 07/04/2025 05:51:48 PM PATIENT REFERRED TO: No follow-up provider specified. DISCHARGE MEDICATIONS: New Prescriptions No medications on file (Comment: Please note this report has been produced using speech recognition software and may contain errors related to that system including errors in grammar, punctuation, and spelling, as well as words and phrases that may be inappropriate. If there are any questions or concerns please feel free to contact the dictating provider for clarification.) Re Maciel MD (electronically signed) Emergency Medicine Provider [1] Past Medical History: Diagnosis Date Anxiety Depression Diabetes (HCC) Respiratory failure (HCC) [2] No past surgical history on file. [3] No family history on file. [4] Social History Socioeconomic History Marital status: Single Tobacco Use Smoking status: Never Passive exposure: Past Smokeless tobacco: Never Social Drivers of Health Financial Resource Strain: Patient Unable To Answer (03/08/2025) Received from [facility] [place] Overall Financial Resource Strain (CARDIA) Difficulty of Paying Living Expenses: Patient unable to answer Food Insecurity: Patient Unable To Answer (03/08/2025) Received from [facility] [place] Hunger Vital Sign Worried About Running Out of Food in the Last Year: Patient unable to answer Ran Out of Food in the Last Year: Patient unable to answer Transportation Needs: No Transportation Needs (06/01/2025) PRAPARE - Transportation Lack of Transportation (Medical): No Lack of Transportation (Non-Medical): No Physical Activity: Inactive (07/11/2024) Received from [facility] Exercise Vital Sign Days of Exercise per Week: 0 days Minutes of Exercise per Session: 0 min Stress: No Stress Concern Present (04/18/2025) Received from [facility] [place] of Occupational Health - Occupational Stress Questionnaire Feeling of Stress : Only a little Social Connections: Unknown (03/08/2025) Received from [facility] Medical Social Connection and Isolation Panel [NHANES] Frequency of Communication with Friends and Family: Patient unable to answer Frequency of Social Gatherings with Friends and Family: Patient unable to answer Attends Hinduism Services: Patient unable to answer Active Member of Clubs or Organizations: Patient unable to answer Attends Club or Organization Meetings: Patient unable to answer Marital Status: Intimate Partner Violence: Not At Risk (06/01/2025) Humiliation, Afraid, Rape, and Kick questionnaire Fear of Current or Ex-Partner: No Emotionally Abused: No Physically Abused: No Sexually Abused: No Recent Concern: Intimate Partner Violence - At Risk (03/07/2025) Received from [facility] Domestic Abuse Assessment Do you feel safe in your relationships at home?: Yes Physical Abuse: Denies Verbal Abuse: Denies Possible abuse reported to:: Other (Comment) Housing Stability: Low Risk (06/01/2025) Housing Stability Vital Sign Unable to Pay for Housing in the Last Year: No Number of Times Moved in the Last Year: 1 Homeless in the Last Year: No Re Maciel MD Resident 07/04/251910 Cosigned by Leyda Lyon DO at 07/06/2025 2:58 PM EDT documented in this encounter [facility] 07-04-2025 Emergency department Note Patient incontinent of stool. Cleaned and repositioned to her R side with wedges. [facility] 07-04-2025 Emergency department Note Kangaroo pump requested as well as PEG nutrition [facility] 07-04-2025 History and physical note Attending History and Physical Admit Date: 07/04/2025 PCP: No primary care provider on file. CHIEF COMPLAINT: Dialysis Reason for Admission: Dialysis History Obtained From: patient and chart review HISTORY OF PRESENT ILLNESS: Rosa is a 75 y.o. female with past medical history below who presents with chief complaint listed above. Patient resides in a long-term facility. Recently get a new dialysis catheter placed today. She has not had dialysis since of last week, 6 days. Patient needing dialysis prior to going back to long-term facility. She is prevented, treatment and has a PEG tube. Patient is nonverbal but able to mouth words. Able to shake her head yes and no and blink her eyes. She currently denies having any headache, dizziness, chest pain, shortness of breath, abdominal pain. Denies any pain. No fevers or chills noted. Patient normally gets dialysis Fridays. Right upper chest wall dialysis catheter dry clean intact no issues. Will admit for further evaluation and management. Medications Reconciliation: Medications were reviewed in chart but unable to verify accurate with patient, verified against facility paperwork Past Medical History: Medical History[1] Past Surgical History: Surgical History[2] Social History: Social History Socioeconomic History Marital status: Single Spouse name: Not on file Number of children: Not on file Years of education: Not on file Highest education level: Not on file Occupational History Not on file Tobacco Use Smoking status: Never Passive exposure: Past Smokeless tobacco: Never Substance and Sexual Activity Alcohol use: Not on file Drug use: Not on file Sexual activity: Not on file Other Topics Concern Not on file Social History Narrative Not on file Social Drivers of Health Financial Resource Strain: Patient Unable To Answer (03/08/2025) Received from [facility] [place] Overall Financial Resource Strain (CARDIA) Difficulty of Paying Living Expenses: Patient unable to answer Food Insecurity: Patient Unable To Answer (03/08/2025) Received from [facility] [place] Hunger Vital Sign Worried About Running Out of Food in the Last Year: Patient unable to answer Ran Out of Food in the Last Year: Patient unable to answer Transportation Needs: No Transportation Needs (06/01/2025) PRAPARE - Transportation Lack of Transportation (Medical): No Lack of Transportation (Non-Medical): No Physical Activity: Inactive (07/11/2024) Received from [facility] Exercise Vital Sign Days of Exercise per Week: 0 days Minutes of Exercise per Session: 0 min Stress: No Stress Concern Present (04/18/2025) Received from [facility] [place] [place] of Occupational Health - Occupational Stress Questionnaire Feeling of Stress : Only a little Social Connections: Unknown (03/08/2025) Received from [facility] Medical Social Connection and Isolation Panel [NHANES] Frequency of Communication with Friends and Family: Patient unable to answer Frequency of Social Gatherings with Friends and Family: Patient unable to answer Attends Hinduism Services: Patient unable to answer Active Member of Clubs or Organizations: Patient unable to answer Attends Club or Organization Meetings: Patient unable to answer Marital Status: Intimate Partner Violence: Not At Risk (06/01/2025) Humiliation, Afraid, Rape, and Kick questionnaire Fear of Current or Ex-Partner: No Emotionally Abused: No Physically Abused: No Sexually Abused: No Recent Concern: Intimate Partner Violence - At Risk (03/07/2025) Received from [facility] Domestic Abuse Assessment Do you feel safe in your relationships at home?: Yes Physical Abuse: Denies [facility] Domestic Abuse - Type of Abuse: Not on file [facility] Domestic Abuse - Time Frame: Not on file [facility] - Signs and Symptoms: Not on file Verbal Abuse: Denies Possible abuse reported to:: Other (Comment) Housing Stability: Low Risk (06/01/2025) Housing Stability Vital Sign Unable to Pay for Housing in the Last Year: No Number of Times Moved in the Last Year: 1 Homeless in the Last Year: No Family History: Family History[3] Medications Prior to Admission: Current Medications[4] Allergies: Allergies[5] REVIEW OF SYSTEMS: A focused review of systems was performed and is negative except as stated in above HPI. Vitals: BP (!) 144/54 Pulse 64 Temp 36.3 C (97.4 F) (Axillary) Resp 16 SpO2 100% BMI Classification: Obese (BMI 30.0-39.9) Pulse Ox: SpO2 Av.8 % Min: 98 % Max: 100 % Supplemental O2: PHYSICAL EXAM: Physical Exam Vitals and nursing note reviewed. Constitutional: General: She is not in acute distress. Appearance: Normal appearance. HENT: Head: Normocephalic. Nose: Nose normal. Eyes: General: Right eye: No discharge. Left eye: No discharge. Cardiovascular: Rate and Rhythm: Normal rate and regular rhythm. Pulses: Normal pulses. Heart sounds: Normal heart sounds. No murmur heard. Pulmonary: Effort: Pulmonary effort is normal. No respiratory distress. Breath sounds: Rhonchi present. No wheezing. Abdominal: General: Bowel sounds are normal. There is no distension. Palpations: Abdomen is soft. Tenderness: There is no abdominal tenderness. Musculoskeletal: General: Normal range of motion. Cervical back: Normal range of motion. No tenderness. Right lower leg: No edema. Left lower leg: No edema. Skin: General: Skin is warm. Capillary Refill: Capillary refill takes less than 2 seconds. Neurological: Mental Status: She is alert. Mental status is at baseline. DATA: CBC: Recent Labs 07/02/25 1639 07/03/25 1351 07/04/25 1634 WBC 6.8 7.3 7.4 RBC 3.00* 2.94* 2.92* HGB 8.2* 8.0* 7.9* HCT 25.5* 25.1* 24.7* MCV 85.0 85.4 84.6 RDW 19.7* 19.6* 19.6* PLT 196 197 171 BMP: Recent Labs 07/02/25 1639 07/03/25 1351 07/04/25 1634 NA 133* 134* 132* K 3.8 3.9 4.7 CL 91* 92* 91* CO2 30 30 29 BUN 74* 88* 106* CREATININE 3.38* 4.14* 4.92* GLUCOSE 124* 118* 125* CALCIUM 10.1* 10.1* 9.9 ANIONGAP 12 12 12 LIVER PROFILE: Recent Labs 07/02/25 1639 07/03/25 1351 07/04/25 1634 AST 33 39* 40* ALT 26 25 36* BILITOT 0.6 0.5 0.6 ALKPHOS 141 135 134 PROT 6.9 6.8 6.7 PT/INR: No results for input(s): "PROTIME", "INR" in the last 72 hours. CARDIAC ENZYMES: No results for input(s): "TROPONINI" in the last 72 hours. Procalcitonin: No results found for: "PROCAL" Urine Culture: No results found for this or any previous visit. COVID-19 PCR: No results for input(s): "COVID19" in the last 72 hours. I reviewed: [x] laboratory results [x] radiographic results At the time of today's encounter. Pt was advised of the results. Data: (CAT1) Reviewed 3 or more notes from different specialty or health system (each=1). (CAT1) Reviewed 3 or more labs/studies ordered by another provider not previously counted (each=1, panels count as 1). (CAT1) Ordered 2 new labs and/or studies (each=1, panels count as 1). (CAT3) Mgmt of the patient was discussed with Dr. Peters, who stated, in summary: Patient to be admitted for dialysis and then discharged to facility. Patient has a trach and is vented. She is also a PEG tube on tube feeding. Currently NPO. RT consulted and dietitian consulted (LOW: 2x CAT1 or independent historian MOD: 3x CAT1 or 1x CAT3 EXTENSIVE: 3x CAT1 and 1x CAT3) Assessment Discussed management with the ED provider and agree with hospitalization. Acute, acute on chronic, unstable/uncontrolled chronic problems/diagnoses: ESRD on dialysis Trached with vent Pneumonia Stable chronic problems affecting care, new non-acute diagnoses: Hyperlipidemia Diabetes mellitus type 2 Anxiety Depression Plan As a result of the above findings & factors, the following mgmt was pursued: - Nephrology consulted for dialysis -Dialysis orders in -Patient trached and vented has RT following -Patient had pneumonia at facility prior to admission on Levaquin 500 twice daily till 07/10/2025, spoke with the pharmacy stating this dose was exceedingly high. Started patient on Levaquin 250 mg daily -Restart home medications for chronic stable conditions -Start tube feed at 57 mL/h continuously for 20 hours on and 4 hours off. No tube feed during dialysis -Consult dietitian due to tube feeding -Check blood sugar ACHS for insulin efficacy and hypoglycemia -Patient is strict n.p.o. -Keep patient on telemetry due to vent - am labs, replace lytes prn - PT/OT/CM/SW - delirium precautions: increase activity and limit nighttime disturbances - DVT prophylaxis: encourage ambulation Advance Directive: Prior Anticipated Discharge - Date -07/05/2025 - Location - Care Home Care Facility (Non-Skilled) - Pending the following -dialysis Total time spent (which include face to face and non face to face encounters) : 75 minutes. Extended Emergency Contact Information Primary Emergency Contact: Marcell Myers Mobile Relation: Son Weatherization Installer needed? No [employer] Rosa Myers : 1950 Primary Care Physician: No primary care provider on file. The patient and/or family/surrogate voluntarily agreed to participate in ACP services. Patient s cognitive capacity: Alert and oriented x 2 Code Status: [X] [FULL CODE - Continue all advanced life support: CPR,intubation,invasive procedures] [_] [DNR-CCA - DO NOT do CPR, intubation] [_] [DNR-DIRECTOR MACHINE - Comfort care only] [_] DNR form [was/was not] signed Full Code Peter Sullivan APRN - [facility] Division of Hospitalist Medicine [1] Past Medical History: Diagnosis Date Anxiety Depression Diabetes (HCC) Respiratory failure (HCC) [2] No past surgical history on file. [3] No family history on file. [4] No current facility-administered medications for this encounter. Current Outpatient Medications: atorvastatin (Lipitor) 40 MG tablet, 1 tablet (40 mg) by Per G Tube route Nightly., Disp: 30 tablet, Rfl: 11 busPIRone (Buspar) 5 MG tablet, 1 tablet (5 mg) by Per G Tube route 3 times daily., Disp: 90 tablet, Rfl: 11 carvedilol (Coreg) 3.125 MG tablet, 1 tablet (3.125 mg) by Per G Tube route 2 times daily (with meals)., Disp: 60 tablet, Rfl: 11 FLUoxetine (PROzac) 20 MG capsule, 1 capsule (20 mg) by Per G Tube route daily., Disp: 30 capsule, Rfl: 11 furosemide (Lasix) 20 MG tablet, Take 1 tablet (20 mg) by mouth Twice a Week. Via PEG, given on wed/Wednesday for weight gain, Disp: 8 tablet, Rfl: 11 insulin glargine (Lantus) 100 UNIT/ML injection, Inject 25 Units under the skin 2 times daily., Disp: , Rfl: Insulin Lispro (Humalog) 100 UNIT/ML solution injection, Inject 2-12 Units under the skin 3 times daily (with meals). Sliding scale: 150-200 = 2 units, 102-250 = 4 units, 251-300 = 6 units, 301-350 = 8 units, 351-400 = 10 units, 401-450 = 12 units, Disp: , Rfl: midodrine (Proamatine) 10 MG tablet, 1 tablet (10 mg) by Per G Tube route 3 times daily., Disp: 90 tablet, Rfl: 0 Facility-Administered Medications Ordered in Other Encounters: [START ON 07/05/2025] chlorhexidine (Hibiclens) 4 % solution, , Topical, Daily, Yamil Newby MD heparin injection 1,200-2,000 Units, 1,200-2,000 Units, IntraCATHeter, PRN, Yamil Newby MD heparin injection 1,200-2,000 Units, 1,200-2,000 Units, IntraCATHeter, PRN, Yamil Newby MD sodium chloride 0.9 % infusion, 50 mL/hr, IntraVENous, Continuous, Ayush Machuca MD, Last Rate: 50 mL/hr at 07/04/25 1450, 50 mL/hr at 07/04/25 1450 [5] No Known Allergies Cosigned by Griffin Peters MD at 07/04/2025 7:08 PM EDT [email or web address]@ Work Phone: 07-04-2025 Note [email or web address]@ [email or web address] 07-04-2025 History and physical note Attending History and Physical Admit Date: 07/04/2025 PCP: No primary care provider on file. CHIEF COMPLAINT: Dialysis Reason for Admission: Dialysis History Obtained From: patient and chart review HISTORY OF PRESENT ILLNESS: Rosa is a 75 y.o. female with past medical history below who presents with chief complaint listed above. Patient resides in a long-term facility. Recently get a new dialysis catheter placed today. She has not had dialysis since of last week, 6 days. Patient needing dialysis prior to going back to long-term facility. She is prevented, treatment and has a PEG tube. Patient is nonverbal but able to mouth words. Able to shake her head yes and no and blink her eyes. She currently denies having any headache, dizziness, chest pain, shortness of breath, abdominal pain. Denies any pain. No fevers or chills noted. Patient normally gets dialysis Fridays. Right upper chest wall dialysis catheter dry clean intact no issues. Will admit for further evaluation and management. Medications Reconciliation: Medications were reviewed in chart but unable to verify accurate with patient, verified against facility paperwork Past Medical History: Medical History[1] Past Surgical History: Surgical History[2] Social History: Social History Socioeconomic History Marital status: Single Spouse name: Not on file Number of children: Not on file Years of education: Not on file Highest education level: Not on file Occupational History Not on file Tobacco Use Smoking status: Never Passive exposure: Past Smokeless tobacco: Never Substance and Sexual Activity Alcohol use: Not on file Drug use: Not on file Sexual activity: Not on file Other Topics Concern Not on file Social History Narrative Not on file Social Drivers of Health Financial Resource Strain: Patient Unable To Answer (03/08/2025) Received from [facility] [place] Overall Financial Resource Strain (CARDIA) Difficulty of Paying Living Expenses: Patient unable to answer Food Insecurity: Patient Unable To Answer (03/08/2025) Received from [facility] [place] Hunger Vital Sign Worried About Running Out of Food in the Last Year: Patient unable to answer Ran Out of Food in the Last Year: Patient unable to answer Transportation Needs: No Transportation Needs (06/01/2025) PRAPARE - Transportation Lack of Transportation (Medical): No Lack of Transportation (Non-Medical): No Physical Activity: Inactive (07/11/2024) Received from [facility] Exercise Vital Sign Days of Exercise per Week: 0 days Minutes of Exercise per Session: 0 min Stress: No Stress Concern Present (04/18/2025) Received from [facility] [place] of Occupational Health - Occupational Stress Questionnaire Feeling of Stress : Only a little Social Connections: Unknown (03/08/2025) Received from [facility] Medical Social Connection and Isolation Panel [NHANES] Frequency of Communication with Friends and Family: Patient unable to answer Frequency of Social Gatherings with Friends and Family: Patient unable to answer Attends Hinduism Services: Patient unable to answer Active Member of Clubs or Organizations: Patient unable to answer Attends Club or Organization Meetings: Patient unable to answer Marital Status: Intimate Partner Violence: Not At Risk (06/01/2025) Humiliation, Afraid, Rape, and Kick questionnaire Fear of Current or Ex-Partner: No Emotionally Abused: No Physically Abused: No Sexually Abused: No Recent Concern: Intimate Partner Violence - At Risk (03/07/2025) Received from [facility] Medical Domestic Abuse Assessment Do you feel safe in your relationships at home?: Yes Physical Abuse: Denies [facility] Domestic Abuse - Type of Abuse: Not on file [facility] Domestic Abuse - Time Frame: Not on file [facility] Domestic Abuse - Signs and Symptoms: Not on file Verbal Abuse: Denies Possible abuse reported to:: Other (Comment) Housing Stability: Low Risk (06/01/2025) Housing Stability Vital Sign Unable to Pay for Housing in the Last Year: No Number of Times Moved in the Last Year: 1 Homeless in the Last Year: No Family History: Family History[3] Medications Prior to Admission: Current Medications[4] Allergies: Allergies[5] REVIEW OF SYSTEMS: A focused review of systems was performed and is negative except as stated in above HPI. Vitals: BP (!) 144/54 Pulse 64 Temp 36.3 C (97.4 F) (Axillary) Resp 16 SpO2 100% BMI Classification: Obese (BMI 30.0-39.9) Pulse Ox: SpO2 Av.8 % Min: 98 % Max: 100 % Supplemental O2: PHYSICAL EXAM: Physical Exam Vitals and nursing note reviewed. Constitutional: General: She is not in acute distress. Appearance: Normal appearance. HENT: Head: Normocephalic. Nose: Nose normal. Eyes: General: Right eye: No discharge. Left eye: No discharge. Cardiovascular: Rate and Rhythm: Normal rate and regular rhythm. Pulses: Normal pulses. Heart sounds: Normal heart sounds. No murmur heard. Pulmonary: Effort: Pulmonary effort is normal. No respiratory distress. Breath sounds: Rhonchi present. No wheezing. Abdominal: General: Bowel sounds are normal. There is no distension. Palpations: Abdomen is soft. Tenderness: There is no abdominal tenderness. Musculoskeletal: General: Normal range of motion. Cervical back: Normal range of motion. No tenderness. Right lower leg: No edema. Left lower leg: No edema. Skin: General: Skin is warm. Capillary Refill: Capillary refill takes less than 2 seconds. Neurological: Mental Status: She is alert. Mental status is at baseline. DATA: CBC: Recent Labs 07/02/25 1639 07/03/25 1351 07/04/25 1634 WBC 6.8 7.3 7.4 RBC 3.00* 2.94* 2.92* HGB 8.2* 8.0* 7.9* HCT 25.5* 25.1* 24.7* MCV 85.0 85.4 84.6 RDW 19.7* 19.6* 19.6* PLT 196 197 171 BMP: Recent Labs 07/02/25 1639 07/03/25 1351 07/04/25 1634 NA 133* 134* 132* K 3.8 3.9 4.7 CL 91* 92* 91* CO2 30 30 29 BUN 74* 88* 106* CREATININE 3.38* 4.14* 4.92* GLUCOSE 124* 118* 125* CALCIUM 10.1* 10.1* 9.9 ANIONGAP 12 12 12 LIVER PROFILE: Recent Labs 07/02/25 1639 07/03/25 1351 07/04/25 1634 AST 33 39* 40* ALT 26 25 36* BILITOT 0.6 0.5 0.6 ALKPHOS 141 135 134 PROT 6.9 6.8 6.7 PT/INR: No results for input(s): "PROTIME", "INR" in the last 72 hours. CARDIAC ENZYMES: No results for input(s): "TROPONINI" in the last 72 hours. Procalcitonin: No results found for: "PROCAL" Urine Culture: No results found for this or any previous visit. COVID-19 PCR: No results for input(s): "COVID19" in the last 72 hours. I reviewed: [x] laboratory results [x] radiographic results At the time of today's encounter. Pt was advised of the results. Data: (CAT1) Reviewed 3 or more notes from different specialty or health system (each=1). (CAT1) Reviewed 3 or more labs/studies ordered by another provider not previously counted (each=1, panels count as 1). (CAT1) Ordered 2 new labs and/or studies (each=1, panels count as 1). (CAT3) Mgmt of the patient was discussed with Dr. Peters, who stated, in summary: Patient to be admitted for dialysis and then discharged to facility. Patient has a trach and is vented. She is also a PEG tube on tube feeding. Currently NPO. RT consulted and dietitian consulted (LOW: 2x CAT1 or independent historian MOD: 3x CAT1 or 1x CAT3 EXTENSIVE: 3x CAT1 and 1x CAT3) Assessment Discussed management with the ED provider and agree with hospitalization. Acute, acute on chronic, unstable/uncontrolled chronic problems/diagnoses: ESRD on dialysis Trached with vent Pneumonia Stable chronic problems affecting care, new non-acute diagnoses: Hyperlipidemia Diabetes mellitus type 2 Anxiety Depression Plan As a result of the above findings & factors, the following mgmt was pursued: - Nephrology consulted for dialysis -Dialysis orders in -Patient trached and vented has RT following -Patient had pneumonia at facility prior to admission on Levaquin 500 twice daily till 07/10/2025, spoke with the pharmacy stating this dose was exceedingly high. Started patient on Levaquin 250 mg daily -Restart home medications for chronic stable conditions -Start tube feed at 57 mL/h continuously for 20 hours on and 4 hours off. No tube feed during dialysis -Consult dietitian due to tube feeding -Check blood sugar ACHS for insulin efficacy and hypoglycemia -Patient is strict n.p.o. -Keep patient on telemetry due to vent - am labs, replace lytes prn - PT/OT/CM/SW - delirium precautions: increase activity and limit nighttime disturbances - DVT prophylaxis: encourage ambulation Advance Directive: Prior Anticipated Discharge - Date -07/05/2025 - Location - Care Home Care Facility (Non-Skilled) - Pending the following -dialysis Total time spent (which include face to face and non face to face encounters) : 75 minutes. Extended Emergency Contact Information Primary Emergency Contact: Marcell Myers Mobile Relation: Son Weatherization Installer needed? No [employer] Rosa Myers : 1950 Primary Care Physician: No primary care provider on file. The patient and/or family/surrogate voluntarily agreed to participate in ACP services. Patient s cognitive capacity: Alert and oriented x 2 Code Status: [X] [FULL CODE - Continue all advanced life support: CPR,intubation,invasive procedures] [_] [DNR-CCA - DO NOT do CPR, intubation] [_] [DNR-DIRECTOR MACHINE - Comfort care only] [_] DNR form [was/was not] signed Full Code Peter Sullivan APRN - METALLURGIST HELPER Division of Hospitalist Medicine [1] Past Medical History: Diagnosis Date Anxiety Depression Diabetes (HCC) Respiratory failure (HCC) [2] No past surgical history on file. [3] No family history on file. [4] No current facility-administered medications for this encounter. Current Outpatient Medications: atorvastatin (Lipitor) 40 MG tablet, 1 tablet (40 mg) by Per G Tube route Nightly., Disp: 30 tablet, Rfl: 11 busPIRone (Buspar) 5 MG tablet, 1 tablet (5 mg) by Per G Tube route 3 times daily., Disp: 90 tablet, Rfl: 11 carvedilol (Coreg) 3.125 MG tablet, 1 tablet (3.125 mg) by Per G Tube route 2 times daily (with meals)., Disp: 60 tablet, Rfl: 11 FLUoxetine (PROzac) 20 MG capsule, 1 capsule (20 mg) by Per G Tube route daily., Disp: 30 capsule, Rfl: 11 furosemide (Lasix) 20 MG tablet, Take 1 tablet (20 mg) by mouth Twice a Week. Via PEG, given on wed/Wednesday for weight gain, Disp: 8 tablet, Rfl: 11 insulin glargine (Lantus) 100 UNIT/ML injection, Inject 25 Units under the skin 2 times daily., Disp: , Rfl: Insulin Lispro (Humalog) 100 UNIT/ML solution injection, Inject 2-12 Units under the skin 3 times daily (with meals). Sliding scale: 150-200 = 2 units, 102-250 = 4 units, 251-300 = 6 units, 301-350 = 8 units, 351-400 = 10 units, 401-450 = 12 units, Disp: , Rfl: midodrine (Proamatine) 10 MG tablet, 1 tablet (10 mg) by Per G Tube route 3 times daily., Disp: 90 tablet, Rfl: 0 Facility-Administered Medications Ordered in Other Encounters: [START ON 07/05/2025] chlorhexidine (Hibiclens) 4 % solution, , Topical, Daily, Yamil Newby MD heparin injection 1,200-2,000 Units, 1,200-2,000 Units, IntraCATHeter, PRN, Yamil Newby MD heparin injection 1,200-2,000 Units, 1,200-2,000 Units, IntraCATHeter, PRN, Yamil Newby MD sodium chloride 0.9 % infusion, 50 mL/hr, IntraVENous, Continuous, Ayush Machuca MD, Last Rate: 50 mL/hr at 07/04/25 1450, 50 mL/hr at 07/04/25 1450 [5] No Known Allergies Cosigned by Griffin Peters MD at 07/04/2025 7:08 PM EDT documented in this encounter [facility] 07-04-2025 Physician Emergency department Note EMERGENCY DEPARTMENT ENCOUNTER Pt Name: Rosa yMers Birthdate 1950 Date of evaluation: 07/04/2025 ED Provider: Re Maciel MD CHIEF COMPLAINT Chief Complaint Patient presents with Other Pt here from intermediate care facility to have dialysis catheter replaced. Procedure completed, here for dialysis before transported back. Pt is trach/vent dependent and oriented via mouthing words and nodding head. PEG tube in place HISTORY OF PRESENT ILLNESS (Location/Symptom, Timing/Onset, Context/Setting, Quality, Duration, Modifying Factors, Severity) Note limiting factors. I wore appropriate PPE for the entirety of this encounter. HPI Rosa Myers is a 75 y.o. who presents to the emergency department for dialysis. Patient recently got her dialysis catheter replaced. She is normally Wednesday through Wednesday. Did not get dialyzed Wednesday or today yet. Been having issues with the dialysis catheter. Nursing facility will not take patient back until she get dialyzed. Nursing Notes were reviewed. Limitations to history: None and Altered mental status/confusion Outside historians: None REVIEW OF SYSTEMS Review of Systems Pertinent positives and negatives as per HPI. PAST MEDICAL HISTORY Medical History[1] SURGICAL HISTORY Surgical History[2] CURRENT MEDICATIONS Previous Medications ATORVASTATIN (LIPITOR) 40 MG TABLET 1 tablet (40 mg) by Per G Tube route Nightly. BUSPIRONE (BUSPAR) 5 MG TABLET 1 tablet (5 mg) by Per G Tube route 3 times daily. CARVEDILOL (COREG) 3.125 MG TABLET 1 tablet (3.125 mg) by Per G Tube route 2 times daily (with meals). FLUOXETINE (PROZAC) 20 MG CAPSULE 1 capsule (20 mg) by Per G Tube route daily. FUROSEMIDE (LASIX) 20 MG TABLET Take 1 tablet (20 mg) by mouth Twice a Week. Via PEG, given on wed/Wednesday for weight gain INSULIN GLARGINE (LANTUS) 100 UNIT/ML INJECTION Inject 25 Units under the skin 2 times daily. INSULIN LISPRO (HUMALOG) 100 UNIT/ML SOLUTION INJECTION Inject 2-12 Units under the skin 3 times daily (with meals). Sliding scale: 150-200 = 2 units, 102-250 = 4 units, 251-300 = 6 units, 301-350 = 8 units, 351-400 = 10 units, 401-450 = 12 units MIDODRINE (PROAMATINE) 10 MG TABLET 1 tablet (10 mg) by Per G Tube route 3 times daily. ALLERGIES Patient has no known allergies. FAMILY HISTORY Family History[3] SOCIAL HISTORY Social History[4] SCREENINGS PHYSICAL EXAM ED Triage Vitals Temp Heart Rate Resp BP 07/04/25 1609 07/04/25 1606 07/04/25 1606 07/04/25 1606 36.3 C (97.4 F) 72 14 (!) 131/66 SpO2 Temp Source Heart Rate Source Patient Position 07/04/25 1606 07/04/25 1609 -- -- 100 % Axillary BP Location FiO2 (%) -- 07/04/25 1555 40 % Physical Exam DIAGNOSTIC RESULTS RADIOLOGY (Per Emergency Physician): Interpretation per the Radiologist below, if available at the time of this note: No orders to display LABS: Labs Reviewed CBC WITH AUTO DIFFERENTIAL - Abnormal Result Value Auto WBC 7.4 RBC 2.92 (*) Hemoglobin 7.9 (*) Hematocrit 24.7 (*) MCV 84.6 MCH 27.1 MCHC 32.0 RDW 19.6 (*) Platelets 171 MPV 10.0 nRBC 0.0 Neutrophils Relative 73.6 Lymphocytes Relative 12.5 (*) Monocytes Relative 10.3 Eosinophils Relative 2.4 Basophils Relative 0.7 Immature Grans % 0.5 Neutrophils Absolute 5.4 Lymphocytes Absolute 0.9 (*) Monocytes Absolute 0.8 Eosinophils Absolute 0.2 Basophils Absolute 0.1 Immature Grans Absolute 0.0 COMPREHENSIVE METABOLIC PANEL - Abnormal SODIUM 132 (*) POTASSIUM 4.7 CHLORIDE 91 (*) CARBON DIOXIDE 29 ANION GAP 12 UREA NITROGEN 106 (*) CREATININE 4.92 (*) GLUCOSE 125 (*) CALCIUM 9.9 AST (SGOT) 40 (*) ALT 36 (*) ALKALINE PHOSPHATASE 134 ALBUMIN 2.5 (*) BILIRUBIN, TOTAL 0.6 TOTAL PROTEIN 6.7 eGFR 8.6 (*) NT PRO BNP - Abnormal NT PRO BNP 86,808 (*) Narrative: In patients with suspected acute HF, NT-proBNP age-related cut-points are 450, 900, and 1800 pg/mL for ages <50, 50-75, and >75 years respectively. NT-proBNP concentration <300 pg/mL provides a very high NPV for HF in an acute setting, independent of age. In a non-acute setting, heart failure is unlikely with a NT-proBNP concentration <125 pg/mL while a value >600 pg/mL is likely due to heart failure. Patients with levels in the elizabeth zone (between rule-out and rule-in levels) need extra physician attention and ancillary testing. For the unusual patient aged <50 years with severe CKD, a cut point of 1,200 ng/L for NT-proBNP would be indicated. Testing is performed on a new assay on a new instrument and values may not correlate well with previous values. HEPATITIS B SURFACE ANTIGEN - Normal HEPATITIS B VIRUS SURFACE AG Not Detected HEPATITIS B SURFACE ANTIBODY HEPATITIS B VIRUS SURFACE AB <8.0 Narrative: Interpretation: <8.0 Non-Reactive 8.0-11.9 Equivocal >= 12.0 Ab Detected Note: If an equivocal result is interpreted, an antibody status is unable to be determined. Collect new specimen if clinically indicated. All other labs were within normal range or not returned as of this dictation. EMERGENCY DEPARTMENT COURSE and DIFFERENTIAL DIAGNOSIS/MDM: Vitals: Vitals: 07/04/25 1606 07/04/25 1609 07/04/25 1812 BP: (!) 131/66 (!) 144/54 Pulse: 72 64 Resp: 14 16 Temp: 36.3 C (97.4 F) TempSrc: Axillary SpO2: 100% 100% The patient presented with a chief complaint of need for dialysis. Patient follows up with [facility]. Reach out to Dr. Powell who is simulation specialist today for [facility] and informed him of the patient. He will help arrange dialysis before patient goes back to facility. However unable to get dialysis while in the ED. Will need admission. Admitted to US ACS of the patient get dialysis and afterwards will be appropriate for discharge back to her long-term facility. ED Course as of 07/04/251910Jul 04, 2025 1731 Messaged [facility] for admission [TC] ED Course User Index [TC] Re Maciel MD Diagnoses as of 07/04/251910 ESRD (end stage renal disease) on dialysis (HCC) ED Medications managed: Medications atorvastatin (Lipitor) tablet 40 mg (has no administration in time range) busPIRone (Buspar) tablet 5 mg (has no administration in time range) carvedilol (Coreg) tablet 3.125 mg (has no administration in time range) FLUoxetine (PROzac) capsule 20 mg (has no administration in time range) insulin glargine (Lantus) injection 25 Units (has no administration in time range) Insulin Lispro (Humalog) injection 0-12 Units ( SubCUTAneous Not Given 07/04/25 190) And Insulin Lispro (Humalog) injection 0-12 Units (has no administration in time range) levoFLOXacin (Levaquin) tablet 250 mg (has no administration in time range) glucose oral gel 15 g (has no administration in time range) dextrose 50 % solution 12.5 g (has no administration in time range) glucagon (human recombinant) injection 1 mg (has no administration in time range) dextrose 5 % infusion (has no administration in time range) PROCEDURES: Unless otherwise noted below, none Procedures FINAL IMPRESSION 1. ESRD (end stage renal disease) on dialysis ([facility]) DISPOSITION Admit 07/04/2025 05:51:48 PM PATIENT REFERRED TO: No follow-up provider specified. DISCHARGE MEDICATIONS: New Prescriptions No medications on file (Comment: Please note this report has been produced using speech recognition software and may contain errors related to that system including errors in grammar, punctuation, and spelling, as well as words and phrases that may be inappropriate. If there are any questions or concerns please feel free to contact the dictating provider for clarification.) Re Maciel MD (electronically signed) Emergency Medicine Provider [1] Past Medical History: Diagnosis Date Anxiety Depression Diabetes (HCC) Respiratory failure ([facility]) [2] No past surgical history on file. [3] No family history on file. [4] Social History Socioeconomic History Marital status: Single Tobacco Use Smoking status: Never Passive exposure: Past Smokeless tobacco: Never Social Drivers of Health Financial Resource Strain: Patient Unable To Answer (03/08/2025) Received from [facility] Overall Financial Resource Strain (CARDIA) Difficulty of Paying Living Expenses: Patient unable to answer Food Insecurity: Patient Unable To Answer (03/08/2025) Received from [facility] Hunger Vital Sign Worried About Running Out of Food in the Last Year: Patient unable to answer Ran Out of Food in the Last Year: Patient unable to answer Transportation Needs: No Transportation Needs (06/01/2025) PRAPARE - Transportation Lack of Transportation (Medical): No Lack of Transportation (Non-Medical): No Physical Activity: Inactive (07/11/2024) Received from [facility] Exercise Vital Sign Days of Exercise per Week: 0 days Minutes of Exercise per Session: 0 min Stress: No Stress Concern Present (04/18/2025) Received from [facility] [place] of Occupational Health - Occupational Stress Questionnaire Feeling of Stress : Only a little Social Connections: Unknown (03/08/2025) Received from [facility] Social Connection and Isolation Panel [NHANES] Frequency of Communication with Friends and Family: Patient unable to answer Frequency of Social Gatherings with Friends and Family: Patient unable to answer Attends Hinduism Services: Patient unable to answer Active Member of Clubs or Organizations: Patient unable to answer Attends Club or Organization Meetings: Patient unable to answer Marital Status: Intimate Partner Violence: Not At Risk (06/01/2025) Humiliation, Afraid, Rape, and Kick questionnaire Fear of Current or Ex-Partner: No Emotionally Abused: No Physically Abused: No Sexually Abused: No Recent Concern: Intimate Partner Violence - At Risk (03/07/2025) Received from [facility] Domestic Abuse Assessment Do you feel safe in your relationships at home?: Yes Physical Abuse: Denies Verbal Abuse: Denies Possible abuse reported to:: Other (Comment) Housing Stability: Low Risk (06/01/2025) Housing Stability Vital Sign Unable to Pay for Housing in the Last Year: No Number of Times Moved in the Last Year: 1 Homeless in the Last Year: No Re Maciel MD Resident 07/04/251910 Cosigned by Leyda Lyon DO at 07/06/2025 2:58 PM EDT [facility] 07-04-2025 Nurse Note Pt transported to ER 37 with RT. GUM MIXER aware of arrival [facility] 07-04-2025 Miscellaneous Notes Pt transported to ER 37 with RT. GUM MIXER aware of arrival Procedure finished per Samantha / staff at [facility] pt is not allowed to return to ECF until has dialysis at hospital ( this was not known or conveyed to us until intra/post procedure). Initially they stated pt to go to [facility] for dialysis when I spoke with physicians transport they refuse this transport trip (per dispatcher Lucia and his retail account manager Tomy). [facility] and [facility] now want her to go to our ER for emergent dialysis as they state it has been 6 days since last dialysis. Spoke with our ER sales team member Hyacinth and went over this situation and need for ER bed for pt - none available at present time and states she will call back when one available. Pt waiting at this time in holding area spot 2 and IR charge nurse updated Unable to place IV - sales team member notified. 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 RT Tamar was at bedside and switched pt from physicians transport vent to hers documented in this encounter [facility] 07-04-2025 Note Pt tolerated procedu re well. Tunn hd cath exchanged. Transfer pt to IR recovery. [facility] 07-04-2025 Nurse Note Pt tolerated procedure well. Tunn hd cath exchanged. Transfer pt to IR recovery. [facility] 07-04-2025 Nurse Note Pt tolerated procedure well. Tunn hd cath exchanged. Transfer pt to IR recovery. Tunneled hd cath removed. IR Procedures: Rosa is here from a ECF for a tunneled hd cath exchange . Pt has verbalized understanding of the procedural instructions. Dr. Newby has spoken to pt. History, allergies, medications and lab results reviewed. Informed consent has been signed. Pt is on a monitor. Patient ready for the procedure. documented in this encounter [facility] 07-04-2025 Nurse Note Procedure finished per Samantha / staff at [facility] pt is not allowed to return to ECF until has dialysis at hospital ( this was not known or conveyed to us until intra/post procedure). Initially they stated pt to go to [facility] for dialysis when I spoke with physicians transport they refuse this transport trip (per dispatcher Lucia and his retail account manager Tomy). [facility] and they now want her to go to our ER for emergent dialysis as they state it has been 6 days since last dialysis. Spoke with our ER sales team member Krista and went over this situation and need for ER bed for pt - none available at present time and states she will call back when one available. Pt waiting at this time in holding area spot 2 and IR charge nurse updated [facility] 07-04-2025 Nurse Note Tunneled hd cath removed. [facility] 10-08-2025 Nurse Note IR Procedures: Rosa is here from a ECF for a tunneled hd cath exchange . Pt has verbalized understanding of the procedural instructions. Dr. Newby has spoken to pt. History, allergies, medications and lab results reviewed. Informed consent has been signed. Pt is on a monitor. Patient ready for the procedure. [facility] 07-04-2025 Note [facility] 07-04-[address] IV - sales team member notified. 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 RT Tamar was at bedside and switched pt from physicians transport vent to hers [facility] 07-03-2025 Hospital Discharg e instructions Re Maciel MD - 07/03/2025 5:03 PM EDT IR will do the dialysis port replacement outpatient. Her facility would need to get in contact with one of our coordinators to set up an appointment. Given the situation, they would get her in within the next day or 2. They need to call [phone] and speak with Roxie or Joseph. They can leave a voicemail if they're not in office and they will return the call during business hours. documented in this encounter [facility] 07-03-2025 Emergency department Note EMERGENCY DEPARTMENT ENCOUNTER Pt Name: Rosa Myers Birthdate 1950 Date of evaluation: 07/03/2025 ED Provider: Armadno Redd DO CHIEF COMPLAINT Chief Complaint Patient presents with Other Patient presents through triage from [facility], staff states that patient needs new dialysis line and needs to have dialysis, last had half a treatment on Wednesday HISTORY OF PRESENT ILLNESS (Location/Symptom, Timing/Onset, Context/Setting, Quality, Duration, Modifying Factors, Severity) Note limiting factors. I wore appropriate PPE for the entirety of this encounter. HPI Rosa Myers is a 75 y.o. who presents to the emergency department patient presenting accompanied by nursing facility staff presenting with concern for incomplete dialysis. They state patient has had recent difficulty completing dialysis. They states she goes every day and does not make urine. She has not had dialysis since Wednesday. They deny any changes to her baseline mentation. Denies any traumatic removal. On chart review the patient follows with nephrology and recently had this replaced mid May. They have no other concerns at this time. They state her mentation is at her baseline. They endorse that they have difficulty completing dialysis due to machine alarming and are concerned the line might be misplaced. Nursing Notes were reviewed. Limitations to history: Outside historians: REVIEW OF SYSTEMS Review of Systems Pertinent positives and negatives as per HPI. PAST MEDICAL HISTORY Medical History[1] SURGICAL HISTORY Surgical History[2] CURRENT MEDICATIONS Previous Medications ATORVASTATIN (LIPITOR) 40 MG TABLET 1 tablet (40 mg) by Per G Tube route Nightly. BUSPIRONE (BUSPAR) 5 MG TABLET 1 tablet (5 mg) by Per G Tube route 3 times daily. CARVEDILOL (COREG) 3.125 MG TABLET 1 tablet (3.125 mg) by Per G Tube route 2 times daily (with meals). FLUOXETINE (PROZAC) 20 MG CAPSULE 1 capsule (20 mg) by Per G Tube route daily. FUROSEMIDE (LASIX) 20 MG TABLET Take 1 tablet (20 mg) by mouth Twice a Week. Via PEG, given on wed/Wednesday for weight gain INSULIN GLARGINE (LANTUS) 100 UNIT/ML INJECTION Inject 25 Units under the skin 2 times daily. INSULIN LISPRO (HUMALOG) 100 UNIT/ML SOLUTION INJECTION Inject 2-12 Units under the skin 3 times daily (with meals). Sliding scale: 150-200 = 2 units, 102-250 = 4 units, 251-300 = 6 units, 301-350 = 8 units, 351-400 = 10 units, 401-450 = 12 units MIDODRINE (PROAMATINE) 10 MG TABLET 1 tablet (10 mg) by Per G Tube route 3 times daily. ALLERGIES Diana inhibitors and Neomycin FAMILY HISTORY Family History[3] SOCIAL HISTORY Social History[4] SCREENINGS PHYSICAL EXAM ED Triage Vitals [07/03/25 1339] Temp Heart Rate Resp BP 36.8 C (98.2 F) 65 16 (!) 144/68 SpO2 Temp src Heart Rate Source Patient Position 94 % -- -- -- BP Location FiO2 (%) -- -- Physical Exam Vitals and nursing note reviewed. Constitutional: General: She is awake. She is not in acute distress. Neck: Comments: trach Cardiovascular: Rate and Rhythm: Normal rate and regular rhythm. Heart sounds: Normal heart sounds. Pulmonary: Effort: Pulmonary effort is normal. Breath sounds: Normal breath sounds and air entry. Chest: Comments: Dialysis port appears hubbed. No surrounding erythema or fluid collection or crepitus. No sediment in the tube. Skin: General: Skin is warm. Coloration: Skin is not jaundiced or pale. Neurological: Mental Status: She is alert. Mental status is at baseline. Psychiatric: Behavior: Behavior is cooperative. DIAGNOSTIC RESULTS RADIOLOGY (Per Emergency Physician): Interpretation per the Radiologist below, if available at the time of this note: No orders to display LABS: Labs Reviewed - No data to display All other labs were within normal range or not returned as of this dictation. EMERGENCY DEPARTMENT COURSE and DIFFERENTIAL DIAGNOSIS/MDM: Vitals: Vitals: 07/03/25 1339 BP: (!) 144/68 Pulse: 65 Resp: 16 Temp: 36.8 C (98.2 F) SpO2: 94% Weight: 108 kg (237 lb 9.6 oz) Height: 1.651 m (5' 5") Patient presenting with dialysis port concern per facility, on chart review it was evaluated by dialysis nurse and did not have any difficulties so attempted outpatient management however the staff are stating that they are unable to complete a full dialysis session. The patient BUN and creatinine have worsened but do not indicate need for emergent dialysis at this time. EKG was obtained due to telemetry showing a wide-complex which was present on EKG irregular wide-complex without meeting Sgarbossa criteria with likely left bundle branch block. Potassium not significantly elevated. Mag within normal limits. Normal interpretation the dialysis port appears to be in the appropriate location. Report agrees, consulting nephrology for further management. Spoke with Dr. Loredo who recommended IR consult for replacement. Spoke with interventional radiology, placed the order, stated they will evaluate. Please see Dr. Maciel note for further MDM and disposition. ED Course as of 07/03/251702 Tue Jul 03, 2025 1524 Sign out: dialysis access problem. Daily dialysis. Port was checked yesterday and discharged. However when they were doing dialysis today the machine was alarming. Sent back for evaluation of the port itself. Will check with nephrology to see if patient can get a course of dialysis today. [TC] 3290 Dr. Redd talked to nephrology and they state that patient will likely need replacement of the dialysis port. Dr. Redd contacted IR and they will come down to evaluate patient and try to get her scheduled for today for replacement of the dialysis port. [TC] ED Course User Index [TC] Re Maciel MD Diagnoses as of 07/03/251702 Dialysis complication, subsequent encounter External records reviewed: Diagnostics interpreted by me: Discussions with other clinicians: Chronic conditions impacting care: Social determinants of health affecting care: ED Medications managed: Medications - No data to display Prescription drugs considered: PROCEDURES: Unless otherwise noted below, none Procedures FINAL IMPRESSION No diagnosis found. DISPOSITION PATIENT REFERRED TO: No follow-up provider specified. DISCHARGE MEDICATIONS: New Prescriptions No medications on file (Comment: Please note this report has been produced using speech recognition software and may contain errors related to that system including errors in grammar, punctuation, and spelling, as well as words and phrases that may be inappropriate. If there are any questions or concerns please feel free to contact the dictating provider for clarification.) Armando Redd DO (electronically signed) Emergency Medicine Provider Armando Redd DO Resident 07/03/25 2943 [1] No past medical history on file. [2] No past surgical history on file. [3] No family history on file. [4] Social History Socioeconomic History Marital status: Single Tobacco Use Smoking status: Never Passive exposure: Past Smokeless tobacco: Never Social Drivers of Health Financial Resource Strain: Patient Unable To Answer (03/08/2025) Received from [facility] Financial Resource Strain (CARDIA) Difficulty of Paying Living Expenses: Patient unable to answer Food Insecurity: Patient Unable To Answer (03/08/2025) Received from [facility] Hunger Vital Sign Worried About Running Out of Food in the Last Year: Patient unable to answer Ran Out of Food in the Last Year: Patient unable to answer Transportation Needs: No Transportation Needs (06/01/2025) PRAPARE - Transportation Lack of Transportation (Medical): No Lack of Transportation (Non-Medical): No Physical Activity: Inactive (07/11/2024) Received from [facility] Exercise Vital Sign Days of Exercise per Week: 0 days Minutes of Exercise per Session: 0 min Stress: No Stress Concern Present (04/18/2025) Received from [facility] [place] of Occupational Health - Occupational Stress Questionnaire Feeling of Stress : Only a little Social Connections: Unknown (03/08/2025) Received from [facility] Medical Social Connection and Isolation Panel [NHANES] Frequency of Communication with Friends and Family: Patient unable to answer Frequency of Social Gatherings with Friends and Family: Patient unable to answer Attends Hinduism Services: Patient unable to answer Active Member of Clubs or Organizations: Patient unable to answer Attends Club or Organization Meetings: Patient unable to answer Marital Status: Intimate Partner Violence: Not At Risk (06/01/2025) Humiliation, Afraid, Rape, and Kick questionnaire Fear of Current or Ex-Partner: No Emotionally Abused: No Physically Abused: No Sexually Abused: No Recent Concern: Intimate Partner Violence - At Risk (03/07/2025) Received from [facility] Medical Domestic Abuse Assessment Do you feel safe in your relationships at home?: Yes Physical Abuse: Denies Verbal Abuse: Denies Possible abuse reported to:: Other (Comment) Housing Stability: Low Risk (06/01/2025) Housing Stability Vital Sign Unable to Pay for Housing in the Last Year: No Number of Times Moved in the Last Year: 1 Homeless in the Last Year: No Cosigned by Gerardo Felder MD at 07/03/2025 4:04 PM EDT Emergency Department Encounter [facility] EMERGENCY DEPT Patient: Rosa Myers : 1950 Date of Evaluation: 07/03/2025 ED Supervising Physician: Gerardo Felder MD I personally evaluated Rosa Myers and made/approved the management plan and take responsibility for the patient management. This will serve as my Supervisory note and shared attestation. I did perform a substantive portion of the visit including all aspects of the Medical Decision Making. I wore appropriate PPE for the entirety of this encounter. In brief, Rosa Myers is a 75 y.o. that presents to the emergency department who has a right subclavian hemodialysis catheter that is flushing but they are unable to fully dialyze with because the machine alarms and says its occluded Focused exam: Right subclavian hemodialysis catheter, no signs of infection Brief ED course/MDM: We spoke with nephrology who recommended interventional radiology removing the tunneled catheter and replacing Diagnostics interpreted by me: EKG(s) EKG interpreted by me shows normal sinus rhythm left bundle branch block PACs no acute ST or T wave changes see Epiphany for full interpretation chest Xray(s) x-ray interpreted by me shows tracheostomy tube in place, right sided dual-lumen tunneled dialysis catheter with tip in the SVC I personally discussed the patient's management with other clinicians: Flight Dynamicist nephrology and interventional radiology All diagnostic, treatment, and disposition decisions were made by myself in conjunction with the Resident. I also supervised soto portions of any procedures performed by the Resident. For all further details of the patient's emergency department visit, please see their documentation. (Comment: Please note this report has been produced using speech recognition software and may contain errors related to that system including errors in grammar, punctuation, and spelling, as well as words and phrases that may be inappropriate. If there are any questions or concerns please feel free to contact the dictating provider for clarification.) Gerardo Felder MD Acute Care [facility] Gerardo Felder MD 07/03/25 1607 documented in this encounter [facility] 07-03-2025 Physician Emergency department Note EMERGENCY DEPARTMENT ENCOUNTER Pt Name: Rosa Myers Birthdate 1950 Date of evaluation: 07/03/2025 ED Provider: Armando Redd DO CHIEF COMPLAINT Chief Complaint Patient presents with Other Patient presents through triage from [facility], staff states that patient needs new dialysis line and needs to have dialysis, last had half a treatment on Wednesday HISTORY OF PRESENT ILLNESS (Location/Symptom, Timing/Onset, Context/Setting, Quality, Duration, Modifying Factors, Severity) Note limiting factors. I wore appropriate PPE for the entirety of this encounter. HPI Rosa Myers is a 75 y.o. who presents to the emergency department patient presenting accompanied by nursing facility staff presenting with concern for incomplete dialysis. They state patient has had recent difficulty completing dialysis. They states she goes every day and does not make urine. She has not had dialysis since Wednesday. They deny any changes to her baseline mentation. Denies any traumatic removal. On chart review the patient follows with nephrology and recently had this replaced mid May. They have no other concerns at this time. They state her mentation is at her baseline. They endorse that they have difficulty completing dialysis due to machine alarming and are concerned the line might be misplaced. Nursing Notes were reviewed. Limitations to history: Outside historians: REVIEW OF SYSTEMS Review of Systems Pertinent positives and negatives as per HPI. PAST MEDICAL HISTORY Medical History[1] SURGICAL HISTORY Surgical History[2] CURRENT MEDICATIONS Previous Medications ATORVASTATIN (LIPITOR) 40 MG TABLET 1 tablet (40 mg) by Per G Tube route Nightly. BUSPIRONE (BUSPAR) 5 MG TABLET 1 tablet (5 mg) by Per G Tube route 3 times daily. CARVEDILOL (COREG) 3.125 MG TABLET 1 tablet (3.125 mg) by Per G Tube route 2 times daily (with meals). FLUOXETINE (PROZAC) 20 MG CAPSULE 1 capsule (20 mg) by Per G Tube route daily. FUROSEMIDE (LASIX) 20 MG TABLET Take 1 tablet (20 mg) by mouth Twice a Week. Via PEG, given on wed/Wednesday for weight gain INSULIN GLARGINE (LANTUS) 100 UNIT/ML INJECTION Inject 25 Units under the skin 2 times daily. INSULIN LISPRO (HUMALOG) 100 UNIT/ML SOLUTION INJECTION Inject 2-12 Units under the skin 3 times daily (with meals). Sliding scale: 150-200 = 2 units, 102-250 = 4 units, 251-300 = 6 units, 301-350 = 8 units, 351-400 = 10 units, 401-450 = 12 units MIDODRINE (PROAMATINE) 10 MG TABLET 1 tablet (10 mg) by Per G Tube route 3 times daily. ALLERGIES Dinaa inhibitors and Neomycin FAMILY HISTORY Family History[3] SOCIAL HISTORY Social History[4] SCREENINGS PHYSICAL EXAM ED Triage Vitals [07/03/25 1339] Temp Heart Rate Resp BP 36.8 C (98.2 F) 65 16 (!) 144/68 SpO2 Temp src Heart Rate Source Patient Position 94 % -- -- -- BP Location FiO2 (%) -- -- Physical Exam Vitals and nursing note reviewed. Constitutional: General: She is awake. She is not in acute distress. Neck: Comments: trach Cardiovascular: Rate and Rhythm: Normal rate and regular rhythm. Heart sounds: Normal heart sounds. Pulmonary: Effort: Pulmonary effort is normal. Breath sounds: Normal breath sounds and air entry. Chest: Comments: Dialysis port appears hubbed. No surrounding erythema or fluid collection or crepitus. No sediment in the tube. Skin: General: Skin is warm. Coloration: Skin is not jaundiced or pale. Neurological: Mental Status: She is alert. Mental status is at baseline. Psychiatric: Behavior: Behavior is cooperative. DIAGNOSTIC RESULTS RADIOLOGY (Per Emergency Physician): Interpretation per the Radiologist below, if available at the time of this note: No orders to display LABS: Labs Reviewed - No data to display All other labs were within normal range or not returned as of this dictation. EMERGENCY DEPARTMENT COURSE and DIFFERENTIAL DIAGNOSIS/MDM: Vitals: Vitals: 07/03/25 1339 BP: (!) 144/68 Pulse: 65 Resp: 16 Temp: 36.8 C (98.2 F) SpO2: 94% Weight: 108 kg (237 lb 9.6 oz) Height: 1.651 m (5' 5") Patient presenting with dialysis port concern per facility, on chart review it was evaluated by dialysis nurse and did not have any difficulties so attempted outpatient management however the staff are stating that they are unable to complete a full dialysis session. The patient BUN and creatinine have worsened but do not indicate need for emergent dialysis at this time. EKG was obtained due to telemetry showing a wide-complex which was present on EKG irregular wide-complex without meeting Sgarbossa criteria with likely left bundle branch block. Potassium not significantly elevated. Mag within normal limits. Normal interpretation the dialysis port appears to be in the appropriate location. Report agrees, consulting nephrology for further management. Spoke with Dr. Loredo who recommended IR consult for replacement. Spoke with interventional radiology, placed the order, stated they will evaluate. Please see Dr. Maciel note for further MDM and disposition. ED Course as of 07/03/251702e Jul 03, 2025 1524 Sign out: dialysis access problem. Daily dialysis. Port was checked yesterday and discharged. However when they were doing dialysis today the machine was alarming. Sent back for evaluation of the port itself. Will check with nephrology to see if patient can get a course of dialysis today. [TC] 1550 Dr. Redd talked to nephrology and they state that patient will likely need replacement of the dialysis port. Dr. Redd contacted IR and they will come down to evaluate patient and try to get her scheduled for today for replacement of the dialysis port. [TC] ED Course User Index [TC] Re Maciel MD Diagnoses as of 07/03/251702 Dialysis complication, subsequent encounter External records reviewed: Diagnostics interpreted by me: Discussions with other clinicians: Chronic conditions impacting care: Social determinants of health affecting care: ED Medications managed: Medications - No data to display Prescription drugs considered: PROCEDURES: Unless otherwise noted below, none Procedures FINAL IMPRESSION No diagnosis found. DISPOSITION PATIENT REFERRED TO: No follow-up provider specified. DISCHARGE MEDICATIONS: New Prescriptions No medications on file (Comment: Please note this report has been produced using speech recognition software and may contain errors related to that system including errors in grammar, punctuation, and spelling, as well as words and phrases that may be inappropriate. If there are any questions or concerns please feel free to contact the dictating provider for clarification.) Armando Redd DO (electronically signed) Emergency Medicine Provider Armando Redd DO Resident 07/03/25 2975 [1] No past medical history on file. [2] No past surgical history on file. [3] No family history on file. [4] Social History Socioeconomic History Marital status: Single Tobacco Use Smoking status: Never Passive exposure: Past Smokeless tobacco: Never Social Drivers of Health Financial Resource Strain: Patient Unable To Answer (03/08/2025) Received from [facility] Financial Resource Strain (CARDIA) Difficulty of Paying Living Expenses: Patient unable to answer Food Insecurity: Patient Unable To Answer (03/08/2025) Received from [facility] Hunger Vital Sign Worried About Running Out of Food in the Last Year: Patient unable to answer Ran Out of Food in the Last Year: Patient unable to answer Transportation Needs: No Transportation Needs (06/01/2025) PRAPARE - Transportation Lack of Transportation (Medical): No Lack of Transportation (Non-Medical): No Physical Activity: Inactive (07/11/2024) Received from [facility] Exercise Vital Sign Days of Exercise per Week: 0 days Minutes of Exercise per Session: 0 min Stress: No Stress Concern Present (04/18/2025) Received from [facility] [place] of Occupational Health - Occupational Stress Questionnaire Feeling of Stress : Only a little Social Connections: Unknown (03/08/2025) Received from [facility] Medical Social Connection and Isolation Panel [NHANES] Frequency of Communication with Friends and Family: Patient unable to answer Frequency of Social Gatherings with Friends and Family: Patient unable to answer Attends Hinduism Services: Patient unable to answer Active Member of Clubs or Organizations: Patient unable to answer Attends Club or Organization Meetings: Patient unable to answer Marital Status: Intimate Partner Violence: Not At Risk (06/01/2025) Humiliation, Afraid, Rape, and Kick questionnaire Fear of Current or Ex-Partner: No Emotionally Abused: No Physically Abused: No Sexually Abused: No Recent Concern: Intimate Partner Violence - At Risk (03/07/2025) Received from [facility] Medical Domestic Abuse Assessment Do you feel safe in your relationships at home?: Yes Physical Abuse: Denies Verbal Abuse: Denies Possible abuse reported to:: Other (Comment) Housing Stability: Low Risk (06/01/2025) Housing Stability Vital Sign Unable to Pay for Housing in the Last Year: No Number of Times Moved in the Last Year: 1 Homeless in the Last Year: No Cosigned by Gerardo Felder MD at 07/03/2025 4:04 PM EDT [place] Phone: 07-03-2025 Physician Emergency department Note Emergency Department Encounter [facility] EMERGENCY DEPT Patient: Rosa Myers : 1950 Date of Evaluation: 07/03/2025 ED Supervising Physician: Gerardo Felder MD I personally evaluated Rosa Myers and made/approved the management plan and take responsibility for the patient management. This will serve as my Supervisory note and shared attestation. I did perform a substantive portion of the visit including all aspects of the Medical Decision Making. I wore appropriate PPE for the entirety of this encounter. In brief, Rosa Myers is a 75 y.o. that presents to the emergency department who has a right subclavian hemodialysis catheter that is flushing but they are unable to fully dialyze with because the machine alarms and says its occluded Focused exam: Right subclavian hemodialysis catheter, no signs of infection Brief ED course/MDM: We spoke with nephrology who recommended interventional radiology removing the tunneled catheter and replacing Diagnostics interpreted by me: EKG(s) EKG interpreted by me shows normal sinus rhythm left bundle branch block PACs no acute ST or T wave changes see Epiphany for full interpretation chest Xray(s) x-ray interpreted by me shows tracheostomy tube in place, right sided dual-lumen tunneled dialysis catheter with tip in the SVC I personally discussed the patient's management with other clinicians: Flight Dynamicist nephrology and interventional radiology All diagnostic, treatment, and disposition decisions were made by myself in conjunction with the Resident. I also supervised soto portions of any procedures performed by the Resident. For all further details of the patient's emergency department visit, please see their documentation. (Comment: Please note this report has been produced using speech recognition software and may contain errors related to that system including errors in grammar, punctuation, and spelling, as well as words and phrases that may be inappropriate. If there are any questions or concerns please feel free to contact the dictating provider for clarification.) Gerardo Felder MD [employer] Gerardo Felder MD 07/03/25 1997 [facility] 07-02-2025 Emergency department Note Discharge discussed with transport at this time. Patient leaves in stable condition. IV removed, gauze and tape placed over insertion site. [facility] 07-02-2025 Emergency department Note Discharge discussed with transport at this time. Patient leaves in stable condition. IV removed, gauze and tape placed over insertion site. corrosion control technician at bedside - reports no issues flushing and pulling from catheter. EMERGENCY DEPARTMENT ENCOUNTER Pt Name: Rosa Myers Birthdate 1950 Date of evaluation: 07/02/2025 ED Provider: Re Maciel MD CHIEF COMPLAINT Chief Complaint Patient presents with Vascular Access Problem Pt arrives to ED via [facility] from [facility] for a clogged dialysis catheter. HISTORY OF PRESENT ILLNESS (Location/Symptom, Timing/Onset, Context/Setting, Quality, Duration, Modifying Factors, Severity) Note limiting factors. I wore appropriate PPE for the entirety of this encounter. HPI Rosa Myers is a 75 y.o. who presents to the emergency department for vascular access problem. Patient is coming in from [facility] for clogged dialysis catheter. Was brought in by EMS. Patient is trach dependent. Has a PEG tube. And has a dialysis port on her right chest. Patient is denying any pain anywhere. She gets dialysis Wednesday through Wednesday. Nursing Notes were reviewed. Limitations to history: Altered mental status/confusion Outside historians: EMS REVIEW OF SYSTEMS Review of Systems Pertinent positives and negatives as per HPI. PAST MEDICAL HISTORY Medical History[1] SURGICAL HISTORY Surgical History[2] CURRENT MEDICATIONS Previous Medications ATORVASTATIN (LIPITOR) 40 MG TABLET 1 tablet (40 mg) by Per G Tube route Nightly. BUSPIRONE (BUSPAR) 5 MG TABLET 1 tablet (5 mg) by Per G Tube route 3 times daily. CARVEDILOL (COREG) 3.125 MG TABLET 1 tablet (3.125 mg) by Per G Tube route 2 times daily (with meals). FLUOXETINE (PROZAC) 20 MG CAPSULE 1 capsule (20 mg) by Per G Tube route daily. FUROSEMIDE (LASIX) 20 MG TABLET Take 1 tablet (20 mg) by mouth Twice a Week. Via PEG, given on wed/Wednesday for weight gain INSULIN GLARGINE (LANTUS) 100 UNIT/ML INJECTION Inject 25 Units under the skin 2 times daily. INSULIN LISPRO (HUMALOG) 100 UNIT/ML SOLUTION INJECTION Inject 2-12 Units under the skin 3 times daily (with meals). Sliding scale: 150-200 = 2 units, 102-250 = 4 units, 251-300 = 6 units, 301-350 = 8 units, 351-400 = 10 units, 401-450 = 12 units MIDODRINE (PROAMATINE) 10 MG TABLET 1 tablet (10 mg) by Per G Tube route 3 times daily. ALLERGIES Patient has no known allergies. FAMILY HISTORY Family History[3] SOCIAL HISTORY Social History[4] SCREENINGS [place] Coma Scale Best Eye Response: Spontaneous Best Verbal Response: Oriented Best Motor Response: Follows commands [place] Coma Scale Score: 15 PHYSICAL EXAM ED Triage Vitals Temp Heart Rate Resp BP 07/02/25 1629 07/02/25 1618 07/02/25 1618 07/02/25 1622 36.3 C (97.4 F) 75 (!) 23 (!) 150/60 SpO2 Temp src Heart Rate Source Patient Position 07/02/25 1618 -- 07/02/25 1622 07/02/25 1622 100 % Monitor Lying BP Location FiO2 (%) 07/02/25 1622 07/02/25 1618 Left arm 40 % Physical Exam Constitutional: General: She is not in acute distress. Appearance: She is not ill-appearing, toxic-appearing or diaphoretic. HENT: Head: Normocephalic and atraumatic. Right Ear: External ear normal. Left Ear: External ear normal. Nose: Nose normal. Mouth/Throat: Mouth: Mucous membranes are moist. Pharynx: Oropharynx is clear. Eyes: Extraocular Movements: Extraocular movements intact. Conjunctiva/sclera: Conjunctivae normal. Cardiovascular: Rate and Rhythm: Normal rate and regular rhythm. Pulses: Normal pulses. Pulmonary: Effort: Pulmonary effort is normal. No respiratory distress. Breath sounds: No stridor. Rhonchi present. No wheezing or rales. Chest: Chest wall: No tenderness. Abdominal: General: Abdomen is flat. There is no distension. Tenderness: There is no abdominal tenderness. There is no guarding or rebound. Musculoskeletal: General: Normal range of motion. Cervical back: Normal range of motion. Right lower leg: No edema. Left lower leg: No edema. Skin: General: Skin is warm and dry. Neurological: Mental Status: She is alert. DIAGNOSTIC RESULTS RADIOLOGY (Per Emergency Physician): Interpretation per the Radiologist below, if available at the time of this note: No orders to display LABS: Labs Reviewed CBC WITH AUTO DIFFERENTIAL - Abnormal Result Value Auto WBC 6.8 RBC 3.00 (*) Hemoglobin 8.2 (*) Hematocrit 25.5 (*) MCV 85.0 MCH 27.3 MCHC 32.2 RDW 19.7 (*) Platelets 196 MPV 10.0 nRBC 0.0 Neutrophils Relative 70.6 Lymphocytes Relative 12.7 (*) Monocytes Relative 12.9 Eosinophils Relative 2.2 Basophils Relative 0.7 Immature Grans % 0.9 Neutrophils Absolute 4.8 Lymphocytes Absolute 0.9 (*) Monocytes Absolute 0.9 Eosinophils Absolute 0.2 Basophils Absolute 0.1 Immature Grans Absolute 0.1 (*) COMPREHENSIVE METABOLIC PANEL - Abnormal SODIUM 133 (*) POTASSIUM 3.8 CHLORIDE 91 (*) CARBON DIOXIDE 30 ANION GAP 12 UREA NITROGEN 74 (*) CREATININE 3.38 (*) GLUCOSE 124 (*) CALCIUM 10.1 (*) AST (SGOT) 33 ALT 26 ALKALINE PHOSPHATASE 141 ALBUMIN 2.7 (*) BILIRUBIN, TOTAL 0.6 TOTAL PROTEIN 6.9 eGFR 13.5 (*) All other labs were within normal range or not returned as of this dictation. EMERGENCY DEPARTMENT COURSE and DIFFERENTIAL DIAGNOSIS/MDM: Vitals: Vitals: 07/02/25 1618 07/02/25 1622 07/02/25 1629 07/02/25 1700 BP: (!) 150/60 106/61 BP Location: Left arm Patient Position: Lying Pulse: 75 74 67 Resp: (!) 23 18 16 Temp: 36.3 C (97.4 F) SpO2: 100% 100% 100% The patient presented with a chief complaint of vascular access problem. Contacted dialysis nursing to help navigate the clogged dialysis port. Dialysis nurse was able to flush and draw from the ports without any difficulty. Stating that there was no resistance. Patient labs demonstrated no need for emergent dialysis at this time. Appropriate for discharge back to facility and get dialysis tomorrow. Given return precaution. ED Course as of 07/02/251812 Mon Jul 02, 2025 1654 HEMOGLOBIN(!): 8.2 Improved from prior [TC] 165 Discussed with nursing to contact dialysis nurses to help troubleshoot the clogged dialysis port [TC] ED Course User Index [TC] Re Maciel MD Diagnoses as of 07/02/251812 Dialysis complication, initial encounter ED Medications managed: Medications - No data to display PROCEDURES: Unless otherwise noted below, none Procedures FINAL IMPRESSION 1. Dialysis complication, initial encounter DISPOSITION Discharge 07/02/2025 05:22:15 PM PATIENT REFERRED TO: No follow-up provider specified. DISCHARGE MEDICATIONS: New Prescriptions No medications on file (Comment: Please note this report has been produced using speech recognition software and may contain errors related to that system including errors in grammar, punctuation, and spelling, as well as words and phrases that may be inappropriate. If there are any questions or concerns please feel free to contact the dictating provider for clarification.) Re Maciel MD (electronically signed) Emergency Medicine Provider [1] No past medical history on file. [2] No past surgical history on file. [3] No family history on file. [4] Social History Socioeconomic History Marital status: Single Tobacco Use Smoking status: Never Passive exposure: Past Smokeless tobacco: Never Social Drivers of Health Financial Resource Strain: Patient Unable To Answer (03/08/2025) Received from [facility] [place] Overall Financial Resource Strain (CARDIA) Difficulty of Paying Living Expenses: Patient unable to answer Food Insecurity: Patient Unable To Answer (03/08/2025) Received from [facility] [place] Hunger Vital Sign Worried About Running Out of Food in the Last Year: Patient unable to answer Ran Out of Food in the Last Year: Patient unable to answer Transportation Needs: No Transportation Needs (06/01/2025) PRAPARE - Transportation Lack of Transportation (Medical): No Lack of Transportation (Non-Medical): No Physical Activity: Inactive (07/11/2024) Received from [facility] Exercise Vital Sign Days of Exercise per Week: 0 days Minutes of Exercise per Session: 0 min Stress: No Stress Concern Present (04/18/2025) Received from [facility] [place] of Occupational Health - Occupational Stress Questionnaire Feeling of Stress : Only a little Social Connections: Unknown (03/08/2025) Received from [facility] Social Connection and Isolation Panel [NHANES] Frequency of Communication with Friends and Family: Patient unable to answer Frequency of Social Gatherings with Friends and Family: Patient unable to answer Attends Hinduism Services: Patient unable to answer Active Member of Clubs or Organizations: Patient unable to answer Attends Club or Organization Meetings: Patient unable to answer Marital Status: Intimate Partner Violence: Not At Risk (06/01/2025) Humiliation, Afraid, Rape, and Kick questionnaire Fear of Current or Ex-Partner: No Emotionally Abused: No Physically Abused: No Sexually Abused: No Recent Concern: Intimate Partner Violence - At Risk (03/07/2025) Received from [facility] Domestic Abuse Assessment Do you feel safe in your relationships at home?: Yes Physical Abuse: Denies Verbal Abuse: Denies Possible abuse reported to:: Other (Comment) Housing Stability: Low Risk (06/01/2025) Housing Stability Vital Sign Unable to Pay for Housing in the Last Year: No Number of Times Moved in the Last Year: 1 Homeless in the Last Year: No Re Maciel MD Resident 07/02/251812 Cosigned by Klever Rand DO at 07/02/2025 7:23 PM EDT Emergency Department Encounter [facility] EMERGENCY DEPT Patient: Rosa Myers : 1950 Date of Evaluation: 07/02/2025 ED Supervising Physician: Klever Rand DO I personally evaluated Rosa Myers and made/approved the management plan and take responsibility for the patient management. This will serve as my Supervisory note and shared attestation. I did perform a substantive portion of the visit including all aspects of the Medical Decision Making. I wore appropriate PPE for the entirety of this encounter. In brief, Rosa Myers is a 75 y.o. that presents to the emergency department with chief complaint of complications of vascular access. Patient has a tunneled dialysis catheter placed in right chest. She gets dialysis Wednesday, Wednesday, Wednesday. They were unable to access it today. Otherwise no other complaints. Patient is chronically trach dependent. She communicates via gestures and eye contact. Denies any pain. Focused exam: Alert and oriented. Communicating with eye movement and nodding and hands. Trach site is clean and dry. Heart is regular in rhythm. Lungs are auscultation bilaterally. There is a tunneled dialysis catheter noted to the right chest wall. No surrounding erythema or bruising. No drainage. Brief ED course/MDM: Dialysis nurse was contacted and they did send the air conditioning service technician down to evaluate the line. It was flushing and drawing well. No concerns for complications of the line at this time. Electrolytes are within normal limits for the most part. She does not have any major change in vent settings or any signs of respiratory distress or significant fluid overload. No indication for emergent dialysis at this time. Suitable for discharge and dialysis tomorrow. All diagnostic, treatment, and disposition decisions were made by myself in conjunction with the Resident. I also supervised soto portions of any procedures performed by the Resident. For all further details of the patient's emergency department visit, please see their documentation. (Comment: Please note this report has been produced using speech recognition software and may contain errors related to that system including errors in grammar, punctuation, and spelling, as well as words and phrases that may be inappropriate. If there are any questions or concerns please feel free to contact the dictating provider for clarification.) Klever Rand DO [employer] Klever Rand DO 07/02/251925 documented in this encounter [facility] 07-02-2025 Hospital Discharg e instructions Re Maciel MD - 07/02/2025 5:23 PM EDT Thank you for visiting us at [facility] Emergency Department. You were seen today for CLOGGED DIALYSIS PORT. Our dialysis nurses were able to evaluate the port. The port flushes and draws well. At this time we feel that you are safe to go home. Please follow-up with your primary care provider within the next week. documented in this encounter [facility] 07-02-2025 Emergency department Note corrosion control technician at bedside - reports no issues flushing and pulling from catheter. [facility] 07-02-2025 Physician Emergency department Note EMERGENCY DEPARTMENT ENCOUNTER Pt Name: Rosa Myers Birthdate 1950 Date of evaluation: 07/02/2025 ED Provider: Re Maciel MD CHIEF COMPLAINT Chief Complaint Patient presents with Vascular Access Problem Pt arrives to ED via [facility] from [facility] for a clogged dialysis catheter. HISTORY OF PRESENT ILLNESS (Location/Symptom, Timing/Onset, Context/Setting, Quality, Duration, Modifying Factors, Severity) Note limiting factors. I wore appropriate PPE for the entirety of this encounter. HPI Rosa Myers is a 75 y.o. who presents to the emergency department for vascular access problem. Patient is coming in from [facility] for clogged dialysis catheter. Was brought in by EMS. Patient is trach dependent. Has a PEG tube. And has a dialysis port on her right chest. Patient is denying any pain anywhere. She gets dialysis Wednesday through Wednesday. Nursing Notes were reviewed. Limitations to history: Altered mental status/confusion Outside historians: EMS REVIEW OF SYSTEMS Review of Systems Pertinent positives and negatives as per HPI. PAST MEDICAL HISTORY Medical History[1] SURGICAL HISTORY Surgical History[2] CURRENT MEDICATIONS Previous Medications ATORVASTATIN (LIPITOR) 40 MG TABLET 1 tablet (40 mg) by Per G Tube route Nightly. BUSPIRONE (BUSPAR) 5 MG TABLET 1 tablet (5 mg) by Per G Tube route 3 times daily. CARVEDILOL (COREG) 3.125 MG TABLET 1 tablet (3.125 mg) by Per G Tube route 2 times daily (with meals). FLUOXETINE (PROZAC) 20 MG CAPSULE 1 capsule (20 mg) by Per G Tube route daily. FUROSEMIDE (LASIX) 20 MG TABLET Take 1 tablet (20 mg) by mouth Twice a Week. Via PEG, given on wed/Wednesday for weight gain INSULIN GLARGINE (LANTUS) 100 UNIT/ML INJECTION Inject 25 Units under the skin 2 times daily. INSULIN LISPRO (HUMALOG) 100 UNIT/ML SOLUTION INJECTION Inject 2-12 Units under the skin 3 times daily (with meals). Sliding scale: 150-200 = 2 units, 102-250 = 4 units, 251-300 = 6 units, 301-350 = 8 units, 351-400 = 10 units, 401-450 = 12 units MIDODRINE (PROAMATINE) 10 MG TABLET 1 tablet (10 mg) by Per G Tube route 3 times daily. ALLERGIES Patient has no known allergies. FAMILY HISTORY Family History[3] SOCIAL HISTORY Social History[4] SCREENINGS [place] Coma Scale Best Eye Response: Spontaneous Best Verbal Response: Oriented Best Motor Response: Follows commands [place] Coma Scale Score: 15 PHYSICAL EXAM ED Triage Vitals Temp Heart Rate Resp BP 07/02/25 1629 07/02/25 1618 07/02/25 1618 07/02/25 1622 36.3 C (97.4 F) 75 (!) 23 (!) 150/60 SpO2 Temp src Heart Rate Source Patient Position 07/02/25 1618 -- 07/02/25 1622 07/02/25 1622 100 % Monitor Lying BP Location FiO2 (%) 07/02/25 1622 07/02/25 1618 Left arm 40 % Physical Exam Constitutional: General: She is not in acute distress. Appearance: She is not ill-appearing, toxic-appearing or diaphoretic. HENT: Head: Normocephalic and atraumatic. Right Ear: External ear normal. Left Ear: External ear normal. Nose: Nose normal. Mouth/Throat: Mouth: Mucous membranes are moist. Pharynx: Oropharynx is clear. Eyes: Extraocular Movements: Extraocular movements intact. Conjunctiva/sclera: Conjunctivae normal. Cardiovascular: Rate and Rhythm: Normal rate and regular rhythm. Pulses: Normal pulses. Pulmonary: Effort: Pulmonary effort is normal. No respiratory distress. Breath sounds: No stridor. Rhonchi present. No wheezing or rales. Chest: Chest wall: No tenderness. Abdominal: General: Abdomen is flat. There is no distension. Tenderness: There is no abdominal tenderness. There is no guarding or rebound. Musculoskeletal: General: Normal range of motion. Cervical back: Normal range of motion. Right lower leg: No edema. Left lower leg: No edema. Skin: General: Skin is warm and dry. Neurological: Mental Status: She is alert. DIAGNOSTIC RESULTS RADIOLOGY (Per Emergency Physician): Interpretation per the Radiologist below, if available at the time of this note: No orders to display LABS: Labs Reviewed CBC WITH AUTO DIFFERENTIAL - Abnormal Result Value Auto WBC 6.8 RBC 3.00 (*) Hemoglobin 8.2 (*) Hematocrit 25.5 (*) MCV 85.0 MCH 27.3 MCHC 32.2 RDW 19.7 (*) Platelets 196 MPV 10.0 nRBC 0.0 Neutrophils Relative 70.6 Lymphocytes Relative 12.7 (*) Monocytes Relative 12.9 Eosinophils Relative 2.2 Basophils Relative 0.7 Immature Grans % 0.9 Neutrophils Absolute 4.8 Lymphocytes Absolute 0.9 (*) Monocytes Absolute 0.9 Eosinophils Absolute 0.2 Basophils Absolute 0.1 Immature Grans Absolute 0.1 (*) COMPREHENSIVE METABOLIC PANEL - Abnormal SODIUM 133 (*) POTASSIUM 3.8 CHLORIDE 91 (*) CARBON DIOXIDE 30 ANION GAP 12 UREA NITROGEN 74 (*) CREATININE 3.38 (*) GLUCOSE 124 (*) CALCIUM 10.1 (*) AST (SGOT) 33 ALT 26 ALKALINE PHOSPHATASE 141 ALBUMIN 2.7 (*) BILIRUBIN, TOTAL 0.6 TOTAL PROTEIN 6.9 eGFR 13.5 (*) All other labs were within normal range or not returned as of this dictation. EMERGENCY DEPARTMENT COURSE and DIFFERENTIAL DIAGNOSIS/MDM: Vitals: Vitals: 07/02/25 1618 07/02/25 1622 07/02/25 1629 07/02/25 1700 BP: (!) 150/60 106/61 BP Location: Left arm Patient Position: Lying Pulse: 75 74 67 Resp: (!) 23 18 16 Temp: 36.3 C (97.4 F) SpO2: 100% 100% 100% The patient presented with a chief complaint of vascular access problem. Contacted dialysis nursing to help navigate the clogged dialysis port. Dialysis nurse was able to flush and draw from the ports without any difficulty. Stating that there was no resistance. Patient labs demonstrated no need for emergent dialysis at this time. Appropriate for discharge back to facility and get dialysis tomorrow. Given return precaution. ED Course as of 07/02/251812Jul 02, 2025 1654 HEMOGLOBIN(!): 8.2 Improved from prior [TC] 1653 Discussed with nursing to contact dialysis nurses to help troubleshoot the clogged dialysis port [TC] ED Course User Index [TC] Re Maciel MD Diagnoses as of 07/02/251812 Dialysis complication, initial encounter ED Medications managed: Medications - No data to display PROCEDURES: Unless otherwise noted below, none Procedures FINAL IMPRESSION 1. Dialysis complication, initial encounter DISPOSITION Discharge 07/02/2025 05:22:15 PM PATIENT REFERRED TO: No follow-up provider specified. DISCHARGE MEDICATIONS: New Prescriptions No medications on file (Comment: Please note this report has been produced using speech recognition software and may contain errors related to that system including errors in grammar, punctuation, and spelling, as well as words and phrases that may be inappropriate. If there are any questions or concerns please feel free to contact the dictating provider for clarification.) Re Maciel MD (electronically signed) Emergency Medicine Provider [1] No past medical history on file. [2] No past surgical history on file. [3] No family history on file. [4] Social History Socioeconomic History Marital status: Single Tobacco Use Smoking status: Never Passive exposure: Past Smokeless tobacco: Never Social Drivers of Health Financial Resource Strain: Patient Unable To Answer (03/08/2025) Received from [facility] Medical Overall Financial Resource Strain (CARDIA) Difficulty of Paying Living Expenses: Patient unable to answer Food Insecurity: Patient Unable To Answer (03/08/2025) Received from [facility] Medical Hunger Vital Sign Worried About Running Out of Food in the Last Year: Patient unable to answer Ran Out of Food in the Last Year: Patient unable to answer Transportation Needs: No Transportation Needs (06/01/2025) PRAPARE - Transportation Lack of Transportation (Medical): No Lack of Transportation (Non-Medical): No Physical Activity: Inactive (07/11/2024) Received from [facility] Exercise Vital Sign Days of Exercise per Week: 0 days Minutes of Exercise per Session: 0 min Stress: No Stress Concern Present (04/18/2025) Received from [facility] [place] of Occupational Health - Occupational Stress Questionnaire Feeling of Stress : Only a little Social Connections: Unknown (03/08/2025) Received from [facility] Medical Social Connection and Isolation Panel [NHANES] Frequency of Communication with Friends and Family: Patient unable to answer Frequency of Social Gatherings with Friends and Family: Patient unable to answer Attends Hinduism Services: Patient unable to answer Active Member of Clubs or Organizations: Patient unable to answer Attends Club or Organization Meetings: Patient unable to answer Marital Status: Intimate Partner Violence: Not At Risk (06/01/2025) Humiliation, Afraid, Rape, and Kick questionnaire Fear of Current or Ex-Partner: No Emotionally Abused: No Physically Abused: No Sexually Abused: No Recent Concern: Intimate Partner Violence - At Risk (03/07/2025) Received from [facility] Domestic Abuse Assessment Do you feel safe in your relationships at home?: Yes Physical Abuse: Denies Verbal Abuse: Denies Possible abuse reported to:: Other (Comment) Housing Stability: Low Risk (06/01/2025) Housing Stability Vital Sign Unable to Pay for Housing in the Last Year: No Number of Times Moved in the Last Year: 1 Homeless in the Last Year: No Re Maciel MD Resident 07/02/251812 Cosigned by Klever Rand DO at 07/02/2025 7:23 PM EDT [facility] 07-02-2025 Physician Emergency department Note Emergency Department Encounter [facility] EMERGENCY DEPT Patient: Rosa Myers : 1950 Date of Evaluation: 07/02/2025 ED Supervising Physician: Klever Rand DO I personally evaluated Rosa Myers and made/approved the management plan and take responsibility for the patient management. This will serve as my Supervisory note and shared attestation. I did perform a substantive portion of the visit including all aspects of the Medical Decision Making. I wore appropriate PPE for the entirety of this encounter. In brief, Rosa Myers is a 75 y.o. that presents to the emergency department with chief complaint of complications of vascular access. Patient has a tunneled dialysis catheter placed in right chest. She gets dialysis Wednesday, Wednesday, Wednesday. They were unable to access it today. Otherwise no other complaints. Patient is chronically trach dependent. She communicates via gestures and eye contact. Denies any pain. Focused exam: Alert and oriented. Communicating with eye movement and nodding and hands. Trach site is clean and dry. Heart is regular in rhythm. Lungs are auscultation bilaterally. There is a tunneled dialysis catheter noted to the right chest wall. No surrounding erythema or bruising. No drainage. Brief ED course/MDM: Dialysis nurse was contacted and they did send the air conditioning service technician down to evaluate the line. It was flushing and drawing well. No concerns for complications of the line at this time. Electrolytes are within normal limits for the most part. She does not have any major change in vent settings or any signs of respiratory distress or significant fluid overload. No indication for emergent dialysis at this time. Suitable for discharge and dialysis tomorrow. All diagnostic, treatment, and disposition decisions were made by myself in conjunction with the Resident. I also supervised soto portions of any procedures performed by the Resident. For all further details of the patient's emergency department visit, please see their documentation. (Comment: Please note this report has been produced using speech recognition software and may contain errors related to that system including errors in grammar, punctuation, and spelling, as well as words and phrases that may be inappropriate. If there are any questions or concerns please feel free to contact the dictating provider for clarification.) Klever Rand DO [employer] Klever Rand DO 07/02/251925 [email or web address] Phone: 06-21-2025 History of Presen t illness Narrative [facility] Nephrology Progress Note Subjective/ 75 y.o. year old female who we are seeing in consultation for ESRD and management of HD. Follows with Dr. Loredo and an outpatient HD schedule M-F at [facility]. 06/06: TDC removed for suspicion of infection 06/08: Temp HD catheter placed by Icu followed by dialysis. 06/12: New TDC placed Resting comfortably in bed S/p HD yesterday. BP intermittently low with HD, but improves with midodrine Nods head and attempts to mouth words Chronic trach to vent and PEG BP stable, on the low side No LE edema No change in PFSH All data labs/interval notes and overnight issues are reviewed Objective/ Vitals: 06/21/25 0835 06/21/25 1134 06/21/25 1136 06/21/25 1252 BP: 117/66 BP Location: Patient Position: Pulse: 65 65 (!) 123 63 Resp: 17 20 Temp: TempSrc: SpO2: 100% 97% 100% 100% Weight: Height: 24HR INTAKE/OUTPUT: Intake/Output Summary (Last 24 hours) at 06/21/2025 1316 Last data filed at 06/21/2025 1143 Gross per 24 hour Intake 2055 ml Output -- Net 2055 ml Wt Readings from Last 3 Encounters: 06/11/25 104 kg (229 lb 0.9 oz) Constitutional: Awake, obese HEENT: no pallor/cyanosis or icterus Cardiovascular: S1, S2 without m/r/g Respiratory: CTA, B/l equal air entry trach present Abdomen: +bs, soft, Non tender non distended Ext: No LE edema No CVA tenderness Neurologic Alert and oriented; answers questions Psychiatric Calm and cooperative normal modd and affect Neck: supple, no thyroid enlargement, no JVD elevation Skin: warm, moist, no rashes Tunneled HD catheter RIJ. Medications: Scheduled Meds[1] Continuous Infusions:Continuous Meds[2] PRN Meds:PRN Meds[3] Data/ Recent Labs 06/19/25 0629 06/20/25 0506 06/21/25 0421 WBC 7.6 6.1 7.0 HGB 7.8* 7.8* 7.2* HCT 25.0* 25.2* 23.2* MCV 85.9 85.4 84.7 PLT 250 240 242 Recent Labs 06/19/25 0629 06/20/25 0506 06/21/25 0421 NA 135* 135* 135* K 4.0 3.9 3.5 CL 99 97* 98 CO2 27 26 27 GLUCOSE 126* 129* 103 MG -- -- 1.9 BUN 23 35* 22 CREATININE 2.33* 2.85* 2.06* Albumin: No components found for: "LABALBU" Calcium: Lab Results Component Value Date CALCIUM 8.7 (L) 06/21/2025 Ionized Calcium: No components found for: "IONCA" Magnesium: Lab Results Component Value Date MG 1.9 06/21/2025 Phosphorus: No results found for: "PHOS" Assessment/ 75 y.o. female with ESRD N18.6 C. Difficile A04.72 Anemia D63.1 Volume overload E87.70 Hyponatremia E87.1 Chronic respiratory failure J96.10 Diabetes E11.22 Dependence on hemodialysis RECOMMENDATIONS: - HD schedule M-F at [facility], follows with Dr. Loredo. Will maintain MWF schedule while inpatient -Tunneled line removed earlier in this admission. New TDC placed on 06/12 in IR after blood cultures negative. - Anemia -Transfuse to keep Hgb > 7.0 ESRD hgb goal > 10. Iron studies reviewed, c/w DORIS therapy - Okay for Midodrine 10 mg 1 hour prior to iHD for BP support during fluid removal. - Slight hyponatremia noted today, will improve with HD, continue to monitor electrolytes - Avoid nephrotoxins and IV contrast dye - Dose all meds per GFR < 15 - We will follow closely -ID following for management of antibiotics, still requiring hospitalization for IV antibiotics -D/w RN. [1] atorvastatin, 40 mg, Per G Tube, Daily busPIRone, 5 mg, Per G Tube, TID carvedilol, 3.125 mg, Per G Tube, BID WC cefepime, 1,000 mg, IntraVENous, q12h chlorhexidine, , Topical, Daily epoetin alpha-epbx, 25 Units/kg, SubCUTAneous, Once per day on Wednesday FLUoxetine, 20 mg, Per G Tube, Daily furosemide, 20 mg, Per G Tube, Daily heparin, 5,000 Units, SubCUTAneous, 2 times per day insulin glargine, 25 Units, SubCUTAneous, BID insulin lispro, 0-6 Units, SubCUTAneous, q6h ipratropium-albuterol, 3 mL, Nebulization, TID miconazole, , Topical, BID midodrine, 10 mg, Per G Tube, TID minocycline, 100 mg, Oral, BID pantoprazole (ProtoNix) 40 mg in sodium chloride (PF) 0.9 % 10 mL injection, 40 mg, IntraVENous, Nightly sodium chloride 0.9%, 10 mL, IntraCATHeter, q12h sodium chloride, 4 mL, Nebulization, BID stomahesive in petrolatum, , Topical, 3 times per day [2] [3] PRN medications: acetaminophen OR acetaminophen, albumin human, albuterol, dextrose 5 % and sodium chloride 0.45 %, dextrose, dextrose, glucagon (rDNA), glucose, heparin, heparin, heparin, heparin, HYDROmorphone, LORazepam, melatonin, polyethylene glycol (PEG) 3350, promethazine OR promethazine OR promethazine, sodium chloride, sodium chloride, sodium chloride, sodium chloride 0.9%, stomahesive in petrolatum Images from the original note were not included. [facility] [place] [address] [place] [id number] Patient - Rosa Myers, Age - 75 y.o. - 1950 Room Number - [id number] Consulting - Sharyn Amaya MD Primary Care Physician - No primary care provider on file. Date of Admission - 06/01/2025 10:53 AM Hospital Day - 20 Problem List[1] Chief Complaint: Jose Maria Myers is a 75 y.o. female who pulmonary is following for VDRF Subjective/Interval History: Patient resting comfortably in bed. Stable on vent with home settings. Needs tunneled line used for antibiotics removed today. Vent settings: Mode A/C VC+, RR 14, Vt 450, 30% FiO2, PEEP 5 cm H2O A pertinent review of systems was performed and was otherwise non-contributory except as detailed in Subjective section above. Objective: Vitals: BP (!) 121/44 (BP Location: Right arm, Patient Position: Lying) Pulse 65 Temp 36.6 C (97.8 F) (Oral) Resp 17 Ht 5' 5" (1.651 m) Wt 229 lb 0.9 oz (104 kg) SpO2 100% BMI 38.12 kg/m Pulse Ox: SpO2 Av.9 % Min: 85 % Max: 100 % Supplemental O2: 30% FiO2 on Vent. I/O 24HR INTAKE/OUTPUT: Intake/Output Summary (Last 24 hours) at 06/21/2025 1137 Last data filed at 06/21/2025 0818 Gross per 24 hour Intake 1924 ml Output -- Net 1924 ml Physical Exam:unchanged compared to 06/07 Physical Exam Vitals and nursing note reviewed. Constitutional: General: She is not in acute distress. Comments: Chronically ill appearing Neck: Trachea: Tracheostomy present. Cardiovascular: Rate and Rhythm: Normal rate and regular rhythm. Pulmonary: Effort: Pulmonary effort is normal. No respiratory distress. Breath sounds: No wheezing, rhonchi or rales. Comments: Chronic vent dependence Musculoskeletal: Right lower leg: No edema. Left lower leg: No edema. Skin: General: Skin is warm and dry. Coloration: Skin is not jaundiced. Findings: No lesion or rash. Neurological: Mental Status: Mental status is at baseline. Psychiatric: Mood and Affect: Mood normal. Behavior: Behavior normal. Behavior is cooperative. Medications: Allergies[2] Current Medications[3] PRN Meds[4] Labs: CBC: Recent Labs 06/19/25 0606/20/25 0506 06/21/25 0421 WBC 7.6 6.1 7.0 HGB 7.8* 7.8* 7.2* HCT 25.0* 25.2* 23.2* PLT 250 240 242 MCV 85.9 85.4 84.7 RDW 18.2* 18.5* 17.9* BMP: Recent Labs 06/19/25 0606/20/25 0506 06/21/25 0421 NA 135* 135* 135* K 4.0 3.9 3.5 CL 99 97* 98 CO2 27 26 27 BUN 23 35* 22 CREATININE 2.33* 2.85* 2.06* CALCIUM 9.1 9.1 8.7* MG -- -- 1.9 LFTs: Recent Labs 06/19/25 0629 06/20/25 0506 06/21/25 0421 AST 24 19 19 ALT 10 9 8 PROT 6.8 6.5 6.4 ALBUMIN 2.5* 2.3* 2.2* BILITOT 0.7 0.6 0.6 ALKPHOS 129 123 113 Glucose: Recent Labs 06/19/25 0629 06/19/25 1110 06/19/25201506/20/25 0506 06/20/25 0622 06/20/25 1133 06/20/25 1623 06/20/25 2327 06/21/25 0421 06/21/25 0617 06/21/25 0820 06/21/25 1136 GLUCOSE 126* -- -- 129* -- -- -- -- 103 -- -- -- POCGLU -- < > 142* -- 127* 127* 108* 118* -- 75 87 85 < > = values in this interval not displayed. Pleural fluid 06/07/25: Lab Results Component Value Date LDHFL 91 06/07/2025 PROTEINFL 3.9 06/07/2025 FLUIDTYPE Pleural Fluid 06/07/2025 FLUIDTYPE Pleural Fluid 06/07/2025 LDH 213 06/08/2025 PROT 6.4 06/21/2025 ALBUMIN 2.2 (L) 06/21/2025 Microbiology: + C difficile Blood cultures: NGTD Dialysis catheter tip: + Serratia marcescens Sputum culture: + Serratia marcescens, Stenotrophomonas maltophilia & Pseudomonas aeruginosa Imaging/ Testing: CXR 06/08/25: IMPRESSION: Lines, tubes, and devices:Interval placement a right IJ approach central venous catheter with tip projecting over the SVC. Tracheostomy tube again projects over the trachea. Lungs and pleura:Prominence of the central pulmonary vasculature without overt pulmonary edema. Hazy bibasilar opacities likely small pleural effusions with associated atelectasis. Superimposed infectious/inflammatory process is not entirely excluded. No interval pneumothorax. Cardiomediastinal silhouette: Stable enlarged cardiac silhouette.Atherosclerotic calcifications of the aortic arch Other: Degenerative changes of the spine and acromioclavicular joints. Assessment and Plan/Recommendations: Chronic respiratory failure with hypoxia. Ventilator dependence Tracheostomy dependence Hx bilateral pleural effusions, transudate Possible PNA- polymicorbial respiratory tract infections. ESRD with pulmonary edema Anemia + C Diff S/p left thoracentesis with removal of 600 ml dacosta fluid, borderline exudate. Culture NGTD. Cytology not collected. Continue volume management via HD. Nephrology following. New HD catheter placed 06/12 Sputum culture + Serratia, Stenotrophomonas and Pseudomonas. 2 weeks antibiotics per ID team. Will complete antibiotics today. Needs tunneled line removed. Continue scheduled DuoNeb's, HTS Respiratory status stable on vent. Continue home settings. No plans for weaning. Routine trach care & pulmonary hygiene Advance Directive: Full Code Discharge planning: Stable to discharge back to [facility] from pulmonary standpoint. Case discussed with nurse and patient Questions and concerns addressed. [1] Patient Active Problem List Diagnosis Anemia Anemia, unspecified type Moderate malnutrition (CMS/HCC) (HCC) Acute metabolic encephalopathy Anxiety and depression Debility [2] No Known Allergies [3] Current Facility-Administered Medications: acetaminophen (Tylenol) tablet 650 mg, 650 mg, Oral, q6h PRN, 650 mg at 06/13/252045 OR acetaminophen (Tylenol) suppository 650 mg, 650 mg, Rectal, q6h PRN, Sharyn Amaya MD albumin human 5 % IV solution 25 g, 25 g, IntraVENous, TID PRN, Rad Acosta MD albuterol (2.5 MG/3ML) 0.083% nebulizer solution 2.5 mg, 2.5 mg, Nebulization, q6h PRN, RENITA Tyler CNP atorvastatin (Lipitor) tablet 40 mg, 40 mg, Per G Tube, Daily, Grzegorz Chatterjee MD, 40 mg at 06/21/25827 busPIRone (Buspar) tablet 5 mg, 5 mg, Per G Tube, TID, Grzegorz Chatterjee MD, 5 mg at 06/21/25827 carvedilol (Coreg) tablet 3.125 mg, 3.125 mg, Per G Tube, BID , Raine Etienne MD, 3.125 mg at 06/21/25827 cefepime (Maxipime) 1,000 mg in sodium chloride 0.9 % 50 mL IVPB, 1,000 mg, IntraVENous, q12h, Geno Waddell MD, Stopped at 06/21/25 0700 chlorhexidine (Hibiclens) 4 % solution, , Topical, Daily, Anjum Fam MD, Given at 06/20/25 1509 dextrose 5 % and sodium chloride 0.45 % bolus 500 mL, 500 mL, IntraVENous, TID PRN, Rad Acosta MD dextrose 5 % infusion, 100 mL/hr, IntraVENous, PRN, Sharyn Amaya MD, Stopped at 06/02/25 1757 dextrose 50 % solution 12.5 g, 12.5 g, IntraVENous, PRN, Sharyn Amaya MD, 12.5 g at 06/13/25 0524 epoetin jenn-epbx (Retacrit) injection 2,600 Units, 25 Units/kg, SubCUTAneous, Once per day on Wednesday, RENITA Clifford CNP, 2,600 Units at 06/20/25 0904 FLUoxetine (PROzac) capsule 20 mg, 20 mg, Per G Tube, Daily, Grzegorz Chatterjee MD, 20 mg at 06/21/25 0828 furosemide (Lasix) tablet 20 mg, 20 mg, Per G Tube, Daily, Grzegorz Chatterjee MD, 20 mg at 06/21/25 0828 glucagon (human recombinant) injection 1 mg, 1 mg, IntraMUSCular, PRN, Sharyn Amaya MD glucose oral gel 15 g, 15 g, Oral, PRN, Sharyn Amaya MD heparin injection 1,200-2,000 Units, 1,200-2,000 Units, IntraCATHeter, PRN, Mi Singh APRN - METALLURGIST HELPER, 1,800 Units at 06/20/25 1302 heparin injection 1,200-2,000 Units, 1,200-2,000 Units, IntraCATHeter, MALCOLMN, Mi Singh APRN - RENEE, 1,700 Units at 06/20/25 1301 heparin injection 1,200-2,000 Units, 1,200-2,000 Units, IntraCATHeter, PRN, Yamil Newby MD heparin injection 1,200-2,000 Units, 1,200-2,000 Units, IntraCATHeter, PRN, Yamil Newby MD heparin injection 5,000 Units, 5,000 Units, SubCUTAneous, 2 times per day, Sharyn Amaya MD, 5,000 Units at 06/21/25 08 HYDROmorphone (Dilaudid) injection 0.25 mg, 0.25 mg, IntraVENous, q4h PRN, Robert Jimenez MD insulin glargine (Lantus) injection 25 Units, 25 Units, SubCUTAneous, BID, Sharyn Amaya MD, 25 Units at 06/21/25 0829 Insulin Lispro (Humalog) injection 0-6 Units, 0-6 Units, SubCUTAneous, q6h, Grzegorz Chatterjee MD, 1 Units at 06/14/25 1202 ipratropium-albuterol (Duo-Neb) 0.5-2.5 mg/3 mL nebulizer solution 3 mL, 3 mL, Nebulization, TID, Neelima aHnks APRN - METALLURGIST HELPER, 3 mL at 06/21/25829 LORazepam (Ativan) tablet 0.25 mg, 0.25 mg, Per G Tube, q8h PRN, RENITA Schwartz CNP melatonin tablet 3 mg, 3 mg, Per G Tube, Nightly PRN, Diana Zabala APRN - RENEE miconazole (Micotin) 2 % powder, , Topical, BID, RENITA Gtz CNP, Given at 06/21/25827 midodrine (Proamatine) tablet 10 mg, 10 mg, Per G Tube, TID, Grzegorz Chatterjee MD, 10 mg at 06/21/25827 minocycline capsule 100 mg, 100 mg, Oral, BID, Kishore Wolff MD, 100 mg at 06/21/25827 pantoprazole (ProtoNix) 40 mg in sodium chloride (PF) 0.9 % 10 mL injection, 40 mg, IntraVENous, Nightly, Grzegorz Chatterjee MD, 40 mg at 06/20/252121 polyethylene glycol (PEG) 3350 (Miralax) packet 17 g, 17 g, Oral, Daily PRN, Sharyn Amaya MD, 17 g at 06/15/25 1350 promethazine (Phenergan) tablet 12.5 mg, 12.5 mg, Oral, q6h PRN OR promethazine (Phenergan) injection 12.5 mg, 12.5 mg, IntraMUSCular, q6h PRN OR promethazine (Phenergan) suppository 12.5 mg, 12.5 mg, Rectal, q6h PRN, Sharyn Amaya MD sodium chloride 0.9 % infusion, 250 mL/hr, IntraVENous, PRN, Omid Orona MD sodium chloride 0.9 % infusion, 250 mL/hr, IntraVENous, PRN, Geno Waddell MD sodium chloride 0.9 % infusion, 250 mL/hr, IntraVENous, PRN, Tomy Hill MD sodium chloride 0.9% (NS) flush 10 mL, 10 mL, IntraCATHeter, q12h, Anjum Fam MD, 10 mL at 06/21/25 0828 sodium chloride 0.9% (NS) flush 10 mL, 10 mL, IntraCATHeter, PRN, Anjum Fam MD sodium chloride 3 % hypertonic nebulizer solution 4 mL, 4 mL, Nebulization, BID, RENITA Tyler CNP, 4 mL at 06/21/25 0831 stomahesive in petrolatum (ET Mix), , Topical, PRN, RENITA Gtz CNP, Given at 06/20/25 2123 stomahesive in petrolatum (ET Mix), , Topical, 3 times per day, RENITA Gtz CNP, Given at 06/21/25 0623 [4] PRN medications: acetaminophen OR acetaminophen, albumin human, albuterol, dextrose 5 % and sodium chloride 0.45 %, dextrose, dextrose, glucagon (rDNA), glucose, heparin, heparin, heparin, heparin, HYDROmorphone, LORazepam, melatonin, polyethylene glycol (PEG) 3350, promethazine OR promethazine OR promethazine, sodium chloride, sodium chloride, sodium chloride, sodium chloride 0.9%, stomahesive in petrolatum [facility] Respiratory Care Department Progress Note Spontaneous Awakening Trial Wean Screen SpO2>/=88%: Yes (06/21/25538) FiO2</=50%: Yes (06/21/25538) PEEP </=8cmH2O: Yes (06/21/25538) HR <140 BPM: Yes (06/21/25538) RR </= 35 breaths/min: Yes (06/21/25538) MAP >/= 65mmHg: Yes (06/21/25538) Arterial pH >7.30: Yes (06/21/25538) Safety Screen Spontaneous Breathing Trial (SBT - RT) : SBT Held - Chronic Ventilator Dependent (06/21/25538) Spontaneous Breathing Trial Vent Settings Vent Mode: Assist control (06/21/25538) Mandatory Type: VC+ (06/21/25538) Resp Rate (Set): 14 (06/21/25538) Vt (Set, mL): 450 mL (06/21/25538) FiO2 (%): 30 % (06/21/25538) PEEP/CPAP (cm H2O): 5 cm H20 (06/21/25538) Inspiratory Time (sec): 0.9 sec (06/21/25538) Vitals MAP (mmHg): 69 (06/20/25 2137) Heart Rate: 107 (06/21/25538) Resp: 20 (06/20/252347) SpO2: 100 % (06/21/25538) Suctioning/Secretions Secretion Amount: Scant (06/21/25 0435) Secretion Color: White (06/20/25 2348) Secretion Consistency: Thick (06/20/252347) ABG results No results for input(s): "PHART", "QCS8LGC", "PO2ART", "SCJ2FAJ", "SO2ART", "U1KDSRYA" in the last 72 hours. Does this patient meet criteria for termination of mechanical ventilation No - Chronic Vent Dependent Name of physician notified via secure chat or in person : na (NA if patient did not meet criteria) Comments: Thank you for involving Respiratory in the care of this patient, Images from the original note were not included. [facility] - Infectious Diseases Attending Progress Note Subjective: Follow up for pneumonia due to pseudomonas aeruginosa, Serratia marcescens, and stenotrophomonas maltophilia, CDAD (treated), infected HD catheter due to serratia marcescens-s/p removal of cath on 06/06/25 and chronic respiratory failure, ventilator dependence. She was alert, laying on bed, nods head and attempts to mouth words; denied fever, abdominal pain, SOB, she underwent left thoracentesis on 06/07, she appeared debilitated and chronically ill. She was admitted on 06/01/25 with low hemoglobin (6.5), increased tracheal secretion, diarrhea and weakness; she was found to have C diff associated diarrhea; on 06/06/25, she was found to have redness on right chest HD catheter with tenderness and the catheter was removed, blood cxs were obtained on 06/07/25. She has h/o chronic tracheostomy and on vent therapy, PEG tube feeding, ESRD on hemodialysis, hypertension, hyperlipidemia coronary artery disease status post PCI with stent in September 2023, type 2 diabetes mellitus with polyneuropathy, chronic CHF. She was examined; notes, labs, imaging were reviewed; treatment plan was discussed; clinical informations were documented in electronic record. Objective: Vitals: Patient Vitals for the past 24 hrs: BP Temp Temp src Pulse Resp SpO2 Height 06/20/25 1605 -- -- -- 70 23 100 % -- 06/20/25 1315 (!) 117/47 -- -- 63 -- 100 % -- 06/20/25 1305 (!) 110/48 -- -- 61 -- 100 % -- 06/20/25 1302 110/52 -- -- 61 -- 100 % -- 06/20/25 1300 -- -- -- 64 -- (!) 85 % -- 06/20/25 1245 (!) 113/44 -- -- 62 -- 100 % -- 06/20/25 1230 (!) 111/47 -- -- 60 -- 100 % -- 06/20/25 1215 123/56 -- -- 58 -- 100 % -- 06/20/25 1200 143/54 -- -- 61 -- 100 % -- 06/20/25 1145 (!) 112/42 -- -- 59 -- 100 % -- 06/20/25 1140 -- -- -- -- -- -- 1.651 m (5' 5") 06/20/25 1130 (!) 110/44 -- -- 55 -- 100 % -- 06/20/25 1115 124/51 -- -- 52 -- 100 % -- 06/20/25 1100 131/52 -- -- 57 -- 100 % -- 06/20/25 1045 116/56 -- -- 63 -- 100 % -- 06/20/25 1030 (!) 128/48 -- -- 57 -- 100 % -- 06/20/25 1015 (!) 130/48 -- -- 56 -- 100 % -- 06/20/25 1000 131/55 -- -- 59 -- 100 % -- 06/20/25 0945 135/54 -- -- 61 -- 100 % -- 06/20/25 0932 (!) 132/47 -- -- 65 -- 100 % -- 06/20/25 0900 127/56 -- -- 63 -- 100 % -- 06/20/25 0856 90/58 36.4 C (97.6 F) Axillary 69 18 100 % -- 06/20/25 0855 -- -- -- 65 -- 100 % -- 06/20/2525 -- -- -- 63 18 99 % -- 06/20/25 0329 -- -- -- 65 18 99 % -- 06/19/255 -- -- -- 66 23 99 % -- 06/19/252013 -- -- -- 61 15 99 % -- 06/19/252012 123/61 36.4 C (97.6 F) Oral 61 16 99 % -- 06/19/25 1711 138/50 -- -- 64 -- -- -- Physical Exam Vitals and nursing notes reviewed. Constitutional: Appearance: She is obese, debilitated and chronically ill-appearing but non-toxic. HENT: Head: Normocephalic, without obvious abnormality, atraumatic. Neck: Trachea: Tracheostomy present. Comments: on vent Cardiovascular: Rate and Rhythm: Regular rhythm. Tachycardia resolved. Pulses: Normal pulses. Heart sounds: Normal heart sounds, S1 normal and S2 normal. Pulmonary: Effort: Pulmonary effort is normal. Breath sounds: Diminished breath sounds. Rales decreased. No wheezing or rhonchi. Comments: On Vent Abdominal: Palpations: Abdomen is soft. non-tender, nondistended. Bowel sounds normal. Musculoskeletal: General: Swelling present. Skin: Comments: Multiple pressure wounds on the coccyx, sacrum and lower extremity. Neurological: No focal deficits, cranial nerves grossly intact, sensations intact Psychiatric : Mood and effect normal , alert and oriented times 3. Labs: Recent Labs 06/18/25 0647 06/19/25 0629 06/20/25 0506 NA 133* 135* 135* K 4.4 4.0 3.9 CL 98 99 97* CO2 24 27 26 BUN 46* 23 35* CREATININE 3.41* 2.33* 2.85* GLUCOSE 119* 126* 129* CALCIUM 8.9 9.1 9.1 PROT 6.2* 6.8 6.5 BILITOT 0.6 0.7 0.6 ALKPHOS 122 129 123 AST 24 24 19 ALT 13 10 9 Recent Labs 06/18/25 0647 06/19/25 0629 06/20/25 0506 WBC 6.3 7.6 6.1 HGB 7.6* 7.8* 7.8* HCT 24.4* 25.0* 25.2* PLT 237 250 240 LYMPHOPCT 14.9* 13.6* 13.9* MONOPCT 9.9 10.2 11.6 BASOPCT 1.0 0.9 1.0 NEUTROABS 4.4 5.5 4.2 Micro: No results for input(s): "COVID19" in the last 72 hours. 06/09/2025 1411 06/15/2025 1439 Aerobic and Anaerobic Culture with Stain [[id number]] (Abnormal) Wound from Trachea Final result Component Value No component results 06/09/2025 1411 06/13/2025 1002 Culture, Aerobic Bacteria with Gram Stain [[id number]] (Abnormal) Wound from Trachea Final result Component Value Culture Few respiratory dave present. Rare Pseudomonas aeruginosa Abnormal Gram Stain Result Many Polymorphonuclear leukocytes per low power field No organisms seen Collected Updated Procedure Result Status 06/07/2025 1129 06/07/2025 1142 Aerobic and Anaerobic Culture with Stain [[id number]] Body Fluid from Pleural Cavity, Left In process Component Value No component results 06/07/2025 1129 06/09/2025 0748 Culture, Aerobic Bacteria with Gram Stain [[id number]] Body Fluid from Pleural Cavity, Left Preliminary result Component Value Culture No growth at 48 hours P Gram Stain Result Few Polymorphonuclear leukocytes per low power field P No organisms seen P 06/07/2025 1129 06/07/2025 1142 Anaerobic culture [[id number]] Body Fluid from Pleural Cavity, Left In process Component Value No component results 06/07/2025 1025 06/09/2025 1301 Blood culture Site #2 - Suspected Infection [[id number]] Blood, Venous Preliminary result Component Value Blood Culture No growth at 48 hours P 06/07/2025 1014 06/09/2025 1301 Blood culture Site #1 - Suspected Infection [[id number]] Blood, Venous Preliminary result Component Value Blood Culture No growth at 48 hours P 06/06/2025 1732 06/08/2025 1413 Respiratory culture and Stain [[id number]] (Abnormal) Sputum Preliminary result Component Value Respiratory culture Few respiratory dave present. P Moderate Serratia marcescens Abnormal P Moderate Stenotrophomonas maltophilia Abnormal P Moderate Pseudomonas aeruginosa Abnormal P Gram Stain Result Many Polymorphonuclear leukocytes per low power field Abnormal P Rare Epithelial cells per low power field Abnormal P Moderate Gram negative bacilli Abnormal P Few Gram positive bacilli Abnormal P Rare Gram positive cocci Abnormal P 06/06/2025 1732 06/07/2025 1158 Pneumonia PCR Panel [[id number]] (Abnormal) Sputum Final result Component Value Staphylococcus aureus Not Detected Streptococcus agalactiae Not Detected Streptococcus pneumoniae Not Detected Streptococcus pyogenes Not Detected Haemophilus influenzae Not Detected Moraxella catarrhalis Not Detected Acinetobacter baumannii complex Not Detected Enterobacter cloacae complex Not Detected Escherichia coli Not Detected Klebsiella (Enterobacter) aerogenes Not Detected Klebsiella oxytoca Not Detected Klebsiella pneumoniae Not Detected Proteus spp Detected Abnormal Pseudomonas aeruginosa Detected Abnormal Serratia marcescens Detected Abnormal Chlamydia pneumoniae Not Detected Legionella pneumophila Not Detected Mycoplasma pneumoniae Not Detected Adenovirus Not Detected Coronavirus Not Detected Human Metapneumovirus Not Detected Human Rhinovirus/Enterovirus Not Detected Influenza A Not Detected Influenza B Not Detected Parainfluenza virus Not Detected Respiratory Syncytial Virus Not Detected 06/06/2025 1429 06/09/2025 0801 Culture, Cath Tip [[id number]] (Abnormal) Foreign Body from Cannula Final result Component Value Culture >15 CFU Serratia marcescens Abnormal This organism possesses an ampC beta-lactamase. For serious infections outside of the urinary tract, third generation cephalosporins may not be effective, even if test results indicate the organism is susceptible. 06/02/2025173506/02/20252058 Gastrointestinal PCR Panel [[id number]] Stool from Per Rectum Final result Component Value Campylobacter Not Detected Plesiomonas shigelloides Not Detected Salmonella Not Detected Vibrio species Not Detected Vibrio cholerae Not Detected Yersinia enterocolitica Not Detected Enterotoxigenic E coli (ETEC) Not Detected Shiga toxin-producing E coli (STEC) Not Detected Shigella/Enteroinvasive E coli (EIEC) Not Detected Cryptosporidium Not Detected Cyclospora cayetanensis Not Detected Entamoeba histolytica Not Detected Giardia lamblia Not Detected Adenovirus F 40/41 Not Detected Astrovirus Not Detected Norovirus GI/GII Not Detected Rotavirus A Not Detected Sapovirus Not Detected 06/02/2025 17306/02/20251954 C. DIFFICILE by PCR with Reflex to EIA [[id number]] (Abnormal) Stool from Per Rectum Final result Component Value C. difficile toxin PCR Detected Abnormal 06/02/2025 1736 06/02/20252207 C. difficile Toxins EIA [[id number]] (Abnormal) Stool from Per Rectum Final result Component Value C difficile Toxins A+B, EIA Positive Abnormal Lines: RIJ HD cath (06/12/25) Radiography/Echo/Other: XR chest 1 view [[id number]] Collected: 06/08/251401 Order Status: Completed Updated: 06/08/251404 Narrative: Patient Name: ROSA MYERS : 1950 Exam Date/Time: 06/08/2025 13:40 Procedure: XR CHEST 1 VIEW Ordering Provider: FRANCOIS KELLY Reason For Exam: cvc placement EXAMINATION: CHEST RADIOGRAPH (SINGLE VIEW AP OR PA) Clinical History: cvc placement Comparison: Radiograph 06/06/2025 RESULT: See impression Impression: Lines, tubes, and devices:Interval placement a right IJ approach central venous catheter with tip projecting over the SVC. Tracheostomy tube again projects over the trachea. Lungs and pleura:Prominence of the central pulmonary vasculature without overt pulmonary edema. Hazy bibasilar opacities likely small pleural effusions with associated atelectasis. Superimposed infectious/inflammatory process is not entirely excluded. No interval pneumothorax. Cardiomediastinal silhouette: Stable enlarged cardiac silhouette.Atherosclerotic calcifications of the aortic arch Other: Degenerative changes of the spine and acromioclavicular joints. Report Dictated on Electronically Signed By: Timbo Mojica MD Electronically Signed Date/Time: 06/08/2025 2:04 PM EDT US guided thoracentesis [[id number]] Collected: 06/07/25 1409 Order Status: Completed Updated: 06/07/25 1410 Narrative: Patient Name: ROSA MYERS : 1950 Exam Date/Time: 06/07/2025 11:01 Procedure: US GUIDED THORACENTESIS Ordering Provider: WADDELL CANDICE Reason For Exam: pleural effusion PROCEDURE: Ultrasound-guided left thoracentesis PROCEDURAL PERSONNEL Advanced Practice Provider: Yoana Hayes PA-C Attending physician, Omid Gottlieb M.D., was available in the department if needed. Indication: Pleural effusion Additional clinical history: None Complications: No immediate complications. Impression: Successful ultrasound-guided left thoracentesis with drainage of 600 milliliters of dacosta fluid. PROCEDURE SUMMARY: - Limited thoracic ultrasound - Ultrasound-guided thoracentesis - Additional procedure(s): None PROCEDURE DETAILS: Pre-procedure Consent: Informed consent for the procedure including risks, benefits and alternatives was obtained and time-out was performed prior to the procedure. Preparation: The site was prepared and draped using maximal sterile barrier technique including cutaneous antisepsis. Anesthesia/sedation None Limited thoracic ultrasound Limited thoracic ultrasound was performed using a curved transducer. A safe window for thoracentesis was identified. Moderate to large pleural effusion was seen on the side of aspiration. The contralateral side was not investigated. Thoracentesis Local anesthesia was administered. Ultrasound was used to pick a safe access site. A permanent image was stored. The pleural space was accessed and fluid return confirmed position. The fluid was drained. Catheter placed: 5F Yueh Closure The catheter was removed. A sterile bandage was applied. Post-drainage hemithorax findings: Minimal effusion Additional Details Additional description of procedure: None Equipment details: None Specimens removed: Pleural fluid Estimated blood loss (mL): Less than 10 Report Dictated on Electronically Signed By: Yoana Hayes PA-C Electronically Signed Date/Time: 06/07/2025 2:09 PM EDT XR chest 1 view [[id number]] Collected: 06/06/252039 Order Status: Completed Updated: 06/06/252042 Narrative: Patient Name: ROSA MYERS : 1950 Exam Date/Time: 06/06/2025 19:54 Procedure: XR CHEST 1 VIEW Ordering Provider: WADDELL CANDICE Reason For Exam: increased secretions INDICATION: Increased secretions. Tunneled dialysis catheter removal same day. VIEWS: Portable AP upright chest COMPARISON: 06/01/2025 FINDINGS: A tracheostomy overlies the midline. The trachea is midline. The cardiomediastinal silhouette is mildly enlarged. The lung volumes are low. There is mild thickening of the interstitium. Bilateral layering pleural effusions are present. Impression: 1. Interval increase in bilateral layering pleural effusions. 2. Interval increase in interstitial edema and/or infiltrates. Report Dictated on Electronically Signed By: Cindy Joyner MD Electronically Signed Date/Time: 06/06/2025 8:41 PM EDT IR CVC tunneled catheter removal [[id number]] Collected: 06/06/25 1546 Order Status: Completed Updated: 06/06/25 1547 Narrative: Patient Name: ROSA MYERS : 1950 Exam Date/Time: 06/06/2025 14:01 Procedure: IR CVC TUNNELED CATHETER REMOVAL Ordering Provider: WADDELL CANDICE Reason For Exam: erythema and redness EXAMINATION: Tunneled dialysis catheter removal. EXAM DATE & TIME: 06/06/2025 2:01 PM EDT INDICATION: erythema and redness ADDITIONAL INFORMATION: 75-year-old female with clinical suspicion for line infection presents for removal COMPARISON: None INFORMED CONSENT: Written informed consent was obtained. The procedure, risks, benefits, and alternatives were discussed. All questions were answered. While not present during the procedure, Dr. Fam was immediately available to furnish services throughout the procedure. TIMEOUT: Timeout was conducted documenting correct patient, procedure, site, fire risk, antibiotics and allergies. COMPLICATIONS: None. ESTIMATED BLOOD LOSS: Less than 10 mL. MEDICATIONS: Antibiotics: None. Contrast dose: None. STERILE TECHNIQUE: All elements of maximal sterile technique were applied: cap, mask, sterile gown, proper hand hygiene including sterile gloves, a large sterile sheet, and hospital-approved cutaneous antisepsis at the site (2% chlorhexidine). ANESTHESIA/SEDATION: Local. PROCEDURE/TECHNIQUE: The patient was placed in the supine position on the procedural table. The skin surrounding the right chest tunneled dialysis catheter was prepped and draped in the usual aseptic fashion. Local anesthesia was achieved with 1% lidocaine solution. Using a combination of blunt dissection and gentle traction, the catheter was removed in its entirety. A sterile dressing was applied. The patient tolerated the procedure well without immediate complication and was transferred from the interventional suite in stable condition. FINDINGS: No images were obtained during catheter removal. Impression: Technically successful uncomplicated removal of right chest tunneled dialysis catheter in its entirety. Report Dictated on Electronically Signed By: Anjum Fam MD Electronically Signed Date/Time: 06/06/2025 3:46 PM EDT XR chest 1 view [[id number]] Collected: 06/01/25 1217 Order Status: Completed Updated: 06/01/25 1220 Narrative: Patient Name: ROSA MYERS : 1950 [facility]#: [id number] Exam Date/Time: 06/01/2025 11:50 Procedure: XR CHEST 1 VIEW Ordering Provider: ORONA KEVIN Reason For Exam: ABDOMINAL PAIN; dyspnea CHEST X-RAY AP CLINICAL INDICATION: Dyspnea AP radiograph of the chest was obtained. COMPARISON: None FINDINGS: Right-sided tunneled dialysis catheter line with its tip overlying the expected SVC location. The cardiac silhouette is within normal limits. Findings consistent with pulmonary edema/vascular congestion. Bilateral pleural effusions with associated atelectasis/consolidative changes. Thoracic spine degenerative changes. Impression: Findings consistent with pulmonary edema/vascular congestion. Bilateral pleural effusions with associated atelectasis/consolidative changes. Report Dictated on Electronically Signed By: Peter Melvin MD Electronically Signed Date/Time: 06/01/2025 12:19 PM EDT Antimicrobials, Start/End Dates: Cefep 06/07- Fidaxo 06/03- Minocycline 06/13- Impression: Pneumonia due to Pseudomonas aeruginosa, Serratia marcescens, and stenotrophomonas maltophilia. CDAD. Treated. Infected HD catheter due to Serratia marcescens-s/p removal of cath on 06/06/25. Chronic respiratory failure, ventilator dependence. Pleural effusion, s/p thoracentesis on 06/07/25. Cx -neg. Trach and PEG. ESRD, on HD. Plan: Pt clinically stable, presented with multiple infectious processes, including polymicrobial pneumonia, CDAD, infected HD catheter. Afebrile, hemodynamically ok. Blood and pleural fluid cxs -neg. She completed CDAD treatment on 06/12. She is trached and vent dependent. No leukocytosis. Continue cefepime and minocycline through 06/21/25. Moderate level complexity medical decision making. Please call with any further question. Total time of 35 minutes on this day of encounter spent on, but not limited to review of tests, medical records , complex history , review of external medical records, paper and electronic, counseling and education (patient, family member, caregiver), ordering medications, tests, and procedures, communication with other health care professions, independent interpretation of tests, care coordination, arrangement of outpatient antimicrobial therapy, post-hospitalization therapy and follow-up, and counseling for risks, benefits, and consideration of use of antimicrobials. No SBT indicated due to PT vent dependent. [facility] Nephrology Progress Note Subjective/ 75 y.o. year old female who we are seeing in consultation for ESRD and management of HD. Follows with Dr. Loredo and an outpatient HD schedule M- at [facility]. 06/06: TDC removed for suspicion of infection 06/08: Temp HD catheter placed by Icu followed by dialysis. 06/12: New TDC placed Resting comfortably in bed Tolerating HD at time of exam BP intermittently low with HD, but improves with midodrine Nods head and attempts to mouth words Chronic trach to vent and PEG BP stable, on the low side No LE edema No change in PFSH All data labs/interval notes and overnight issues are reviewed Objective/ Vitals: 06/20/25 1200 06/20/25 1215 06/20/25 1230 06/20/25 1245 BP: 143/54 123/56 (!) 111/47 (!) 113/44 BP Location: Patient Position: Pulse: 61 58 60 62 Resp: Temp: TempSrc: SpO2: 100% 100% 100% 100% Weight: Height: 24HR INTAKE/OUTPUT: Intake/Output Summary (Last 24 hours) at 06/20/2025 1258 Last data filed at 06/20/2025 0900 Gross per 24 hour Intake 1557 ml Output -- Net 1557 ml Wt Readings from Last 3 Encounters: 06/11/25 104 kg (229 lb 0.9 oz) Constitutional: Awake, obese HEENT: no pallor/cyanosis or icterus Cardiovascular: S1, S2 without m/r/g Respiratory: CTA, B/l equal air entry trach present Abdomen: +bs, soft, Non tender non distended Ext: No LE edema No CVA tenderness Neurologic Alert and oriented; answers questions Psychiatric Calm and cooperative normal modd and affect Neck: supple, no thyroid enlargement, no JVD elevation Skin: warm, moist, no rashes Tunneled HD catheter RIJ. Medications: Scheduled Meds[1] Continuous Infusions:Continuous Meds[2] PRN Meds:PRN Meds[3] Data/ Recent Labs 06/18/25 0647 06/19/25 0629 06/20/25 0506 WBC 6.3 7.6 6.1 HGB 7.6* 7.8* 7.8* HCT 24.4* 25.0* 25.2* MCV 85.6 85.9 85.4 PLT 237 250 240 Recent Labs 06/18/25 0647 06/19/25 0629 06/20/25 0506 NA 133* 135* 135* K 4.4 4.0 3.9 CL 98 99 97* CO2 24 27 26 GLUCOSE 119* 126* 129* BUN 46* 23 35* CREATININE 3.41* 2.33* 2.85* Albumin: No components found for: "LABALBU" Calcium: Lab Results Component Value Date CALCIUM 9.1 06/20/2025 Ionized Calcium: No components found for: "IONCA" Magnesium: No results found for: "MG" Phosphorus: No results found for: "PHOS" Assessment/ 75 y.o. female with ESRD N18.6 C. Difficile A04.72 Anemia D63.1 Volume overload E87.70 Hyponatremia E87.1 Chronic respiratory failure J96.10 Diabetes E11.22 Dependence on hemodialysis RECOMMENDATIONS: - HD schedule M-F at [facility], follows with Dr. Loredo. Tolerating HD today during exam. Will maintain MWF schedule while inpatient -Tunneled line removed earlier in this admission. New TDC placed on 06/12 in IR after blood cultures negative. - Anemia -Transfuse to keep Hgb > 7.0 ESRD hgb goal > 10. Iron studies reviewed, c/w DORIS therapy - Okay for Midodrine 10 mg 1 hour prior to iHD for BP support during fluid removal. - Slight hyponatremia noted today, will improve with HD, continue to monitor electrolytes - Avoid nephrotoxins and IV contrast dye - Dose all meds per GFR < 15 - We will follow closely -ID following for management of antibiotics, still requiring hospitalization for IV antibiotics D/w primary, patient to be discharged back to SNF tomorrow [1] atorvastatin, 40 mg, Per G Tube, Daily busPIRone, 5 mg, Per G Tube, TID carvedilol, 3.125 mg, Per G Tube, BID WC cefepime, 1,000 mg, IntraVENous, q12h chlorhexidine, , Topical, Daily epoetin alpha-epbx, 25 Units/kg, SubCUTAneous, Once per day on Wednesday FLUoxetine, 20 mg, Per G Tube, Daily furosemide, 20 mg, Per G Tube, Daily heparin, 5,000 Units, SubCUTAneous, 2 times per day insulin glargine, 25 Units, SubCUTAneous, BID insulin lispro, 0-6 Units, SubCUTAneous, q6h ipratropium-albuterol, 3 mL, Nebulization, TID miconazole, , Topical, BID midodrine, 10 mg, Per G Tube, TID minocycline, 100 mg, Oral, BID pantoprazole (ProtoNix) 40 mg in sodium chloride (PF) 0.9 % 10 mL injection, 40 mg, IntraVENous, Nightly sodium chloride 0.9%, 10 mL, IntraCATHeter, q12h sodium chloride, 4 mL, Nebulization, BID stomahesive in petrolatum, , Topical, 3 times per day [2] [3] PRN medications: acetaminophen OR acetaminophen, albumin human, albuterol, dextrose 5 % and sodium chloride 0.45 %, dextrose, dextrose, glucagon (rDNA), glucose, heparin, heparin, heparin, heparin, HYDROmorphone, LORazepam, melatonin, polyethylene glycol (PEG) 3350, promethazine OR promethazine OR promethazine, sodium chloride, sodium chloride, sodium chloride, sodium chloride 0.9%, stomahesive in petrolatum Nutrition Assessment Type and Reason for Visit: Reassess Nutrition Recommendations/Plan: Continue with current tube feed regimen: Nepro with Carb Steady at 40 ml/hr to provide 1699 kcals, 78g protein, and 1298 ml free water (~30 kcals, 1.4g protein per kg IBW of 57kg) Flushes of 100 ml q 4 hrs (600ml/day) which is included in above free water total with EN. Monitor overall nutrition status, tube feed tolerance at goal, labs/electrolytes. RD will follow. Malnutrition Assessment: Malnutrition Status: Moderate malnutrition Context: Chronic Illness Findings of the 6 clinical characteristics of malnutrition: Energy Intake: (Pt is receiving adequate needs via EN) Weight Loss: (weights trending back up) Body Fat Loss: Mild body fat loss Buccal region, Orbital Muscle Mass Loss: Mild muscle mass loss Clavicles (pectoralis & deltoids), Temples (temporalis), Thigh (quadraceps) Fluid Accumulation: No significant fluid accumulation Extremities Boom Supervisor Strength: Not Performed Nutrition Assessment: Pt continues on tube feed of Nepro @40 ml/hr, flushes of 100 ml q 4 hrs. Pt had new tunneled dialysis cath placed 06/12. Pt was receiving dialysis during RD visit this AM, on MWF schedule. Last session had 1L net removed on 06/18. Pt is planned to finish her IV abx tomorrow 06/21 then possible dc to facility ([facility]). Pt is s/p left thoracentesis 06/07 with 600ml dacosta fluid removed. Estimated Daily Nutrient Needs: Energy Requirements Based On: Kcal/kg Weight Used for Energy Requirements: [place] Weight for Energy Calculation (kg): 57 kg Total Energy Requirements (kcals/day): 2169-8937 kcals (25-30 kcals/kg) Weight Used for Protein Requirements: [place] Weight in Kg Used for Protein Requirements: 57 kg Estimated Total Protein (g/day): 68-86g (1.2-1.5g/kg) Estimated Daily Total Fluid (ml/day): urine output+1000 ml/day Nutrition Related Findings: no edema; Na 135, Cl 97, BUN 35, Cr 2.85, GFR 16.5, Glucose 127, 142, 146, Hgb 7.8, Hct 25.2; Duoneb, Retracrit, Maxipime, Coreg, PPI, Humalog, Lipitor, Lasix, Lantus Wound Type: Stage II, Pressure Injury (left heel) Current Nutrition Therapies: Enteral Nutrition Feeding Route: PEG EN Formula: Nepro w/CARBSTEADY EN Schedule: Continuous EN Feeding Regimen: Nepro Carb Steady at 40 ml/hr Additives/Modulars: None Water Flushes: 100 ml q 4 hrs Current EN & Flush Order Provides: Nepro @40 ml/hr= 1699 kcals, 78g protein, and 1298 ml free water (~30 kcals, 1.4g protein per kg IBW of 57kg) Goal EN & Flush Order Provides: Nepro @40 ml/hr= 1699 kcals, 78g protein, and 1298 ml free water (~30 kcals, 1.4g protein per kg IBW of 57kg) Anthropometric Measures: Height: 165.1 cm (5' 5") Current Body Weight: 104 kg (229 lb 0.9 oz) Weight Source: Bed Scale Admission Body Weight: 103 kg (226 lb) (05/25 @ SNF) Usual Body Weight: 103 kg (226 lb) (per EMR--> 242# 11/27/24; 220# (bed) 03/07/25; 209.7# 04/02/25; 226# 05/25/25) % Weight Change (Calculated): 1.4 [place] Body Weight (lbs) (Calculated): 125 lbs [place] Body Weight (Kg) (Calculated): 57 kg % [place] Body Weight (Calculated): 183.2 % BMI (kg/m2) (Calculated): 38.1 Weight Adjustment For: No Adjustment BMI Categories: Obese Class 2 (BMI 35.0 -39.9) Nutrition Diagnosis: Moderate malnutrition, In context of chronic illness related to increase demand for energy/nutrients as evidenced by mild loss of subcutaneous fat, mild muscle loss Altered GI function related to altered GI structure, acute injury/trauma (Chronic trach/PEG; +C-diff) as evidenced by nutrition support - enteral nutrition, diarrhea Nutrition Interventions: Nutrition Education/Counseling: No recommendation at this time Coordination of Nutrition Care: Continue to monitor while inpatient Plan of Care discussed with: Rounds, dialysis nurse Goals: Previous Goal Met: Progressing toward Goal(s) Goals: Meet at least 75% of estimated needs, Tolerate nutrition support at goal rate, by next RD assessment Specify Other Goals: Diarrhea will improve/resolve Nutrition Monitoring and Evaluation: Behavioral-Environmental Outcomes: Knowledge or Skill Food/Nutrient Intake Outcomes: Enteral Nutrition Intake/Tolerance Physical Signs/Symptoms Outcomes: Biochemical Data, Diarrhea, GI Status, Nausea or Vomiting, Nutrition Focused Physical Findings, Skin, Weight Discharge Planning: Enteral Nutrition Queta Steve RD Contact: *[phone] or via Secure Chat Images from the original note were not included. [facility] [place] [address] [place] [id number] Patient - Rosa Myers, Age - 75 y.o. - 1950 Room Number - [id number] Consulting - Sharyn Amaya MD Primary Care Physician - No primary care provider on file. Date of Admission - 06/01/2025 10:53 AM Hospital Day - 19 Problem List[1] Chief Complaint: Jose Maria Myers is a 75 y.o. female who pulmonary is following for VDRF Subjective/Interval History: Respiratory status stable. No new overnight concerns. On chronic vent with home settings. Currently getting HD. Vent settings: Mode A/C VC+, RR 14, Vt 450, 30% FiO2, PEEP 5 cm H2O A pertinent review of systems was performed and was otherwise non-contributory except as detailed in Subjective section above. Objective: Vitals: BP 131/52 Pulse 57 Temp 36.4 C (97.6 F) (Axillary) Resp 18 Ht 5' 5" (1.651 m) Wt 229 lb 0.9 oz (104 kg) SpO2 100% BMI 38.12 kg/m Pulse Ox: SpO2 Av.6 % Min: 98 % Max: 100 % Supplemental O2: 30% FiO2 on Vent. I/O 24HR INTAKE/OUTPUT: Intake/Output Summary (Last 24 hours) at 06/20/2025 1115 Last data filed at 06/20/2025 0900 Gross per 24 hour Intake 1557 ml Output -- Net 1557 ml Physical Exam:unchanged compared to 06/07 Physical Exam Vitals and nursing note reviewed. Constitutional: General: She is not in acute distress. Comments: Chronically ill appearing Neck: Trachea: Tracheostomy present. Cardiovascular: Rate and Rhythm: Normal rate and regular rhythm. Pulmonary: Effort: Pulmonary effort is normal. No respiratory distress. Breath sounds: Rhonchi present. No wheezing or rales. Comments: Chronic vent dependence Musculoskeletal: Right lower leg: No edema. Left lower leg: No edema. Skin: General: Skin is warm and dry. Coloration: Skin is not jaundiced. Findings: No lesion or rash. Neurological: Mental Status: Mental status is at baseline. Psychiatric: Mood and Affect: Mood normal. Behavior: Behavior normal. Behavior is cooperative. Medications: Allergies[2] Current Medications[3] PRN Meds[4] Labs: CBC: Recent Labs 06/18/25 0647 06/19/25 0629 06/20/25 0506 WBC 6.3 7.6 6.1 HGB 7.6* 7.8* 7.8* HCT 24.4* 25.0* 25.2* PLT 237 250 240 MCV 85.6 85.9 85.4 RDW 18.2* 18.2* 18.5* BMP: Recent Labs 06/18/25 0647 06/19/25 0629 06/20/25 0506 NA 133* 135* 135* K 4.4 4.0 3.9 CL 98 99 97* CO2 24 27 26 BUN 46* 23 35* CREATININE 3.41* 2.33* 2.85* CALCIUM 8.9 9.1 9.1 LFTs: Recent Labs 06/18/25 0647 06/19/25 0629 06/20/25 0506 AST 24 24 19 ALT 13 10 9 PROT 6.2* 6.8 6.5 ALBUMIN 2.1* 2.5* 2.3* BILITOT 0.6 0.7 0.6 ALKPHOS 122 129 123 Glucose: Recent Labs 06/18/25 0647 06/18/25 1213 06/18/25 1729 06/19/25 0002 06/19/25 0628 06/19/25 0629 06/19/25 1110 06/19/25 1706 06/19/25 2016 06/20/25 0506 06/20/25 0622 GLUCOSE 119* -- -- -- -- 126* -- -- -- 129* -- POCGLU -- 98 101* 125* 132* -- 146* 126* 142* -- 127* Pleural fluid 06/07/25: Lab Results Component Value Date LDHFL 91 06/07/2025 PROTEINFL 3.9 06/07/2025 FLUIDTYPE Pleural Fluid 06/07/2025 FLUIDTYPE Pleural Fluid 06/07/2025 LDH 213 06/08/2025 PROT 6.5 06/20/2025 ALBUMIN 2.3 (L) 06/20/2025 Microbiology: + C difficile Blood cultures: NGTD Dialysis catheter tip: + Serratia marcescens Sputum culture: + Serratia marcescens, Stenotrophomonas maltophilia & Pseudomonas aeruginosa Imaging/ Testing: CXR 06/08/25: IMPRESSION: Lines, tubes, and devices:Interval placement a right IJ approach central venous catheter with tip projecting over the SVC. Tracheostomy tube again projects over the trachea. Lungs and pleura:Prominence of the central pulmonary vasculature without overt pulmonary edema. Hazy bibasilar opacities likely small pleural effusions with associated atelectasis. Superimposed infectious/inflammatory process is not entirely excluded. No interval pneumothorax. Cardiomediastinal silhouette: Stable enlarged cardiac silhouette.Atherosclerotic calcifications of the aortic arch Other: Degenerative changes of the spine and acromioclavicular joints. Assessment and Plan/Recommendations: Chronic respiratory failure with hypoxia. Ventilator dependence Tracheostomy dependence Hx bilateral pleural effusions, transudate Possible PNA- polymicorbial respiratory tract infections. ESRD with pulmonary edema Anemia + C Diff S/p left thoracentesis with removal of 600 ml dacosta fluid, borderline exudate. Culture NGTD. Cytology not collected. Continue volume management via HD. Nephrology following. New HD catheter placed 06/12 Sputum culture + Serratia, Stenotrophomonas and Pseudomonas. 2 weeks antibiotics per ID team. Plan through 06/21 Continue scheduled DuoNeb's, HTS Respiratory status stable on vent. Continue home settings. No plans for weaning. Routine trach care & pulmonary hygiene Advance Directive: Full Code Discharge planning: Remains stable from pulmonary standpoint. Discharge back to [facility] once antibiotics completed. Case discussed with nurse and patient Questions and concerns addressed. [1] Patient Active Problem List Diagnosis Anemia Anemia, unspecified type Moderate malnutrition (CMS/HCC) (HCC) Acute metabolic encephalopathy Anxiety and depression Debility [2] No Known Allergies [3] Current Facility-Administered Medications: acetaminophen (Tylenol) tablet 650 mg, 650 mg, Oral, q6h PRN, 650 mg at 06/13/252045 OR acetaminophen (Tylenol) suppository 650 mg, 650 mg, Rectal, q6h PRN, Sharyn Amaya MD albumin human 5 % IV solution 25 g, 25 g, IntraVENous, TID PRN, Rad Acosta MD albuterol (2.5 MG/3ML) 0.083% nebulizer solution 2.5 mg, 2.5 mg, Nebulization, q6h PRN, Neelima Hanks APRN - METALLURGIST HELPER atorvastatin (Lipitor) tablet 40 mg, 40 mg, Per G Tube, Daily, Grzegorz Chatterjee MD, 40 mg at 06/20/25902 busPIRone (Buspar) tablet 5 mg, 5 mg, Per G Tube, TID, Grzegorz Chatterjee MD, 5 mg at 06/20/25901 carvedilol (Coreg) tablet 3.125 mg, 3.125 mg, Per G Tube, BID WC, Raine Etienne MD, 3.125 mg at 06/20/25 09 cefepime (Maxipime) 1,000 mg in sodium chloride 0.9 % 50 mL IVPB, 1,000 mg, IntraVENous, q12h, Geno Waddell MD, Stopped at 06/20/25 0540 chlorhexidine (Hibiclens) 4 % solution, , Topical, Daily, Anjum Fam MD, Given at 06/19/25 1405 dextrose 5 % and sodium chloride 0.45 % bolus 500 mL, 500 mL, IntraVENous, TID PRN, Rad Acosta MD dextrose 5 % infusion, 100 mL/hr, IntraVENous, PRN, Sharyn Amaya MD, Stopped at 06/02/25 1757 dextrose 50 % solution 12.5 g, 12.5 g, IntraVENous, PRN, Sharyn Amaya MD, 12.5 g at 06/13/25 0524 epoetin jenn-epbx (Retacrit) injection 2,600 Units, 25 Units/kg, SubCUTAneous, Once per day on Wednesday, Mi Singh APRN - METALLURGIST HELPER, 2,600 Units at 06/20/25 0904 FLUoxetine (PROzac) capsule 20 mg, 20 mg, Per G Tube, Daily, Grzegorz Chatterjee MD, 20 mg at 06/20/25 0903 furosemide (Lasix) tablet 20 mg, 20 mg, Per G Tube, Daily, Grzegorz Chatterjee MD, 20 mg at 06/20/25 0902 glucagon (human recombinant) injection 1 mg, 1 mg, IntraMUSCular, PRN, Sharyn Amaya MD glucose oral gel 15 g, 15 g, Oral, PRN, Sharyn Amaya MD heparin injection 1,200-2,000 Units, 1,200-2,000 Units, IntraCATHeter, PRN, RENITA Clifford CNP, 1,800 Units at 06/18/25 1338 heparin injection 1,200-2,000 Units, 1,200-2,000 Units, IntraCATHeter, PRN, RENITA Clifford CNP, 1,700 Units at 06/18/25 1338 heparin injection 1,200-2,000 Units, 1,200-2,000 Units, IntraCATHeter, PRN, Yamil Newby MD heparin injection 1,200-2,000 Units, 1,200-2,000 Units, IntraCATHeter, PRN, Yamil Newby MD heparin injection 5,000 Units, 5,000 Units, SubCUTAneous, 2 times per day, Sharyn Amaya MD, 5,000 Units at 06/20/25 0902 HYDROmorphone (Dilaudid) injection 0.25 mg, 0.25 mg, IntraVENous, q4h PRN, Robert Jimenez MD insulin glargine (Lantus) injection 25 Units, 25 Units, SubCUTAneous, BID, Sharyn Amaya MD, 25 Units at 06/20/25 0902 Insulin Lispro (Humalog) injection 0-6 Units, 0-6 Units, SubCUTAneous, q6h, Grzegorz Chatterjee MD, 1 Units at 06/14/25 1202 ipratropium-albuterol (Duo-Neb) 0.5-2.5 mg/3 mL nebulizer solution 3 mL, 3 mL, Nebulization, TID, RENITA Tyler CNP, 3 mL at 06/20/25 0825 LORazepam (Ativan) tablet 0.25 mg, 0.25 mg, Per G Tube, q8h PRN, Diana Zabala APRN - RENEE melatonin tablet 3 mg, 3 mg, Per G Tube, Nightly PRN, Diana DuqueeRENITA - METALLURGIST HELPER miconazole (Micotin) 2 % powder, , Topical, BID, RENITA Gtz CNP, Given at 06/20/25902 midodrine (Proamatine) tablet 10 mg, 10 mg, Per G Tube, TID, Grzegorz Chatterjee MD, 10 mg at 06/20/25902 minocycline capsule 100 mg, 100 mg, Oral, BID, Kishore Wolff MD, 100 mg at 06/20/25901 pantoprazole (ProtoNix) 40 mg in sodium chloride (PF) 0.9 % 10 mL injection, 40 mg, IntraVENous, Nightly, Grzegorz Chatterjee MD, 40 mg at 06/19/252019 polyethylene glycol (PEG) 3350 (Miralax) packet 17 g, 17 g, Oral, Daily PRN, Sharyn Amaya MD, 17 g at 06/15/25 1350 promethazine (Phenergan) tablet 12.5 mg, 12.5 mg, Oral, q6h PRN OR promethazine (Phenergan) injection 12.5 mg, 12.5 mg, IntraMUSCular, q6h PRN OR promethazine (Phenergan) suppository 12.5 mg, 12.5 mg, Rectal, q6h PRN, Sharyn Amaya MD sodium chloride 0.9 % infusion, 250 mL/hr, IntraVENous, PRN, Omid Orona MD sodium chloride 0.9 % infusion, 250 mL/hr, IntraVENous, PRN, Geno Waddell MD sodium chloride 0.9 % infusion, 250 mL/hr, IntraVENous, PRN, Tomy Hill MD sodium chloride 0.9% (NS) flush 10 mL, 10 mL, IntraCATHeter, q12h, Anjum Fam MD, 10 mL at 06/20/25 0903 sodium chloride 0.9% (NS) flush 10 mL, 10 mL, IntraCATHeter, PRN, Anjum Fam MD sodium chloride 3 % hypertonic nebulizer solution 4 mL, 4 mL, Nebulization, BID, RENITA Tyler CNP, 4 mL at 06/20/25 0828 stomahesive in petrolatum (ET Mix), , Topical, PRN, RENITA Gtz CNP, Given at 06/08/25 1857 stomahesive in petrolatum (ET Mix), , Topical, 3 times per day, RENITA Gtz CNP, Given at 06/20/25 0532 [4] PRN medications: acetaminophen OR acetaminophen, albumin human, albuterol, dextrose 5 % and sodium chloride 0.45 %, dextrose, dextrose, glucagon (rDNA), glucose, heparin, heparin, heparin, heparin, HYDROmorphone, LORazepam, melatonin, polyethylene glycol (PEG) 3350, promethazine OR promethazine OR promethazine, sodium chloride, sodium chloride, sodium chloride, sodium chloride 0.9%, stomahesive in petrolatum Hospitalist Progress Note 06/20/2025 [phone]: Please secure chat me for patient care issues. [phone]: Please secure chat [facility] Hospitalist for any issues. Subjective: Admit Date: 06/01/2025 PCP: No primary care provider on file. Room#: 222-04/222-04 A Brief History: Rosa Myers is a 75 y.o. female who presents with Anemia She is a patient from extended-care facility, chronic tracheostomy and chronic vent therapy, on hemodialysis, concern for line infection , removal of indwelling temporary dialysis catheter and insertion of right-sided dual-lumen dialysis catheter. Patient being treated for pneumonia hazy bibasilar opacities Consults : Pulmonology Chief Complaint : Currently having dialysis On chronic ventilator therapy, tracheostomy in place Diet, tube feeding no tray PEG; Nepro w/CARB Steady; Continuous; No; 40; 40 @[id number]@ 24HR INTAKE/OUTPUT: Intake/Output Summary (Last 24 hours) at 06/20/2025 1107 Last data filed at 06/20/2025 0900 Gross per 24 hour Intake 1557 ml Output -- Net 1557 ml Past Medical History: Medical History[1] LABS: CBC: Recent Labs 06/18/25 0647 06/19/25 0629 06/20/25 0506 WBC 6.3 7.6 6.1 RBC 2.85* 2.91* 2.95* HGB 7.6* 7.8* 7.8* HCT 24.4* 25.0* 25.2* MCV 85.6 85.9 85.4 RDW 18.2* 18.2* 18.5* PLT 237 250 240 BMP: Recent Labs 06/18/25 0647 06/19/25 0629 06/20/25 0506 NA 133* 135* 135* K 4.4 4.0 3.9 CL 98 99 97* CO2 24 27 26 BUN 46* 23 35* CREATININE 3.41* 2.33* 2.85* GLUCOSE 119* 126* 129* CALCIUM 8.9 9.1 9.1 ANIONGAP 11 9 12 LIVER PROFILE: Recent Labs 06/18/25 0647 06/19/25 0629 06/20/25 0506 AST 24 24 19 ALT 13 10 9 BILITOT 0.6 0.7 0.6 ALKPHOS 122 129 123 PROT 6.2* 6.8 6.5 PT/INR: No results for input(s): "PROTIME", "INR" in the last 72 hours. CARDIAC ENZYMES: No results for input(s): "TROPONINI" in the last 72 hours. Procalcitonin: No results found for: "PROCAL" COVID-19 PCR: No results for input(s): "COVID19" in the last 72 hours. Objective: Vitals: BP 131/52 Pulse 57 Temp 36.4 C (97.6 F) (Axillary) Resp 18 Ht 5' 5" (1.651 m) Wt 229 lb 0.9 oz (104 kg) SpO2 100% BMI 38.12 kg/m Pulse Ox: SpO2 Av.6 % Min: 98 % Max: 100 % Physical Exam General appearance: No apparent distress, appears stated age, AAOX3 Oral: Tongue is semi-moist Cardiovascular: S1/S2 heard, RRR Right internal jugular tunneled dialysis catheter Respiratory: Diminished air entry anteriorly, tracheostomy site is red and inflamed Abdomen: Soft, non-tender, non-distended bowel sounds positive, PEG tube in place Musculoskeletal: Bilateral venous stasis changes Medications: Continuous Meds[2] Scheduled Meds[3] Assessment Acute Problems : Acute infectious and metabolic encephalopathy-improved Acute on chronic anemia Chronic bilateral pleural effusions-status post ultrasound-guided left thoracentesis with 600 mL removed Pneumonia bilateral and healthcare associated, respiratory culture growing Serratia marcescens, stenotrophomonas sp, Pseudomonas aeruginosa Chronic respiratory failure tracheostomy dependent Concern for tunneled line infection-wound tip growing Serratia marcescens C. difficile infection Hypokalemia Pressure ulcers present on admission ESRD on HD chronic heart failure Severe malnutrition GERD Anxiety Depression Type 2 diabetes Chronic candidiasis Neuropathy Stable chronic problems affecting care, new non-acute diagnoses: Medical Decision Making 06/20-tracheostomy care with frequent suctioning, on cefepime and minocycline, stop date tomorrow, dialysis per nephrology, cleared for discharge, PEG tube feeding, anticipate discharge in a.m. to extended-care facility once completion of antibiotics Order for removal of tunneled dialysis catheter placed -am labs, replace lytes prn -increase activity -DVT prophylaxis: [] Lovenox [] Heparin [] SCDs [x] Encourage ambulation [] Already on Anticoagulation - GI prophylaxis : Anticipated Discharge - Date -June 21 - Location -[facility] - Pending the following -completion of antibiotics Total time spent (which include face to face and non face to face encounters) : 54 minutes Toxic drug monitoring/narrow therapeutic index drug monitoring : # Drug name : # Route administered : # Method of monitoring : No emergency contact information on file. Sharyn Amaya MD Division of Hospitalist Medicine Acute care solutions PAGER: Epic chat [1] No past medical history on file. [2] [3] atorvastatin, 40 mg, Per G Tube, Daily busPIRone, 5 mg, Per G Tube, TID carvedilol, 3.125 mg, Per G Tube, BID WC cefepime, 1,000 mg, IntraVENous, q12h chlorhexidine, , Topical, Daily epoetin alpha-epbx, 25 Units/kg, SubCUTAneous, Once per day on Wednesday FLUoxetine, 20 mg, Per G Tube, Daily furosemide, 20 mg, Per G Tube, Daily heparin, 5,000 Units, SubCUTAneous, 2 times per day insulin glargine, 25 Units, SubCUTAneous, BID insulin lispro, 0-6 Units, SubCUTAneous, q6h ipratropium-albuterol, 3 mL, Nebulization, TID miconazole, , Topical, BID midodrine, 10 mg, Per G Tube, TID minocycline, 100 mg, Oral, BID pantoprazole (ProtoNix) 40 mg in sodium chloride (PF) 0.9 % 10 mL injection, 40 mg, IntraVENous, Nightly sodium chloride 0.9%, 10 mL, IntraCATHeter, q12h sodium chloride, 4 mL, Nebulization, BID stomahesive in petrolatum, , Topical, 3 times per day [facility] Respiratory Care Department Progress Note Spontaneous Awakening Trial Wean Screen SpO2>/=88%: Yes (06/20/25328) FiO2</=50%: Yes (06/20/25328) PEEP </=8cmH2O: Yes (06/20/25328) HR <140 BPM: Yes (06/20/25328) RR </= 35 breaths/min: Yes (06/20/25328) MAP >/= 65mmHg: Yes (06/20/25328) Arterial pH >7.30: Yes (06/19/252) Safety Screen Spontaneous Breathing Trial (SBT - RT) : SBT Held - Chronic Ventilator Dependent (06/20/25328) Spontaneous Breathing Trial Vent Settings Vent Mode: Assist control (06/19/252012) Mandatory Type: VC+ (06/19/252012) Resp Rate (Set): 14 (06/19/251445) Vt (Set, mL): 450 mL (06/19/251445) FiO2 (%): 30 % (06/19/251445) PEEP/CPAP (cm H2O): 5 cm H20 (09/23/25 1446) Inspiratory Time (sec): 0.9 sec (06/19/25 1446) Vitals MAP (mmHg): 77 (06/19/252012) Heart Rate: 64 (06/19/25 1711) Resp: 22 (06/19/25 144) SpO2: 98 % (06/19/25 144) Suctioning/Secretions Secretion Amount: Small (06/19/252014) Secretion Color: Yellow (06/19/25819) Secretion Consistency: Thick (06/19/25819) ABG results No results for input(s): "PHART", "IKY4UJW", "PO2ART", "HAY1BFT", "SO2ART", "L2UNBXHD" in the last 72 hours. Does this patient meet criteria for termination of mechanical ventilation No - Chronic Vent Dependent Comments: Thank you for involving Respiratory in the care of this patient, [facility] Respiratory Care Department Progress Note As part of the Respiratory Assessment Program (RAP), the following Respiratory Therapist evaluation has been completed, including a chart review and clinical/physical assessment. Respiratory Therapist RAP Evaluation Guideline Points 0 1 2 3 4 Points Strongly Consider History Factor No Pulmonary conditions Stable Pulmonary condition(s) Surgery or Intervention that may impact Pulmonary system (at risk) Surgery or Intervention that is impacting Pulmonary system Active Exacerbation of Pulmonary Condition 2 Respiratory Pattern Regular, RR= 12-18 SALGADO or Increased RR= 19-24 Irregular, or RR= 25-30 SOB, talk in short sentences, or RR= 31-35 Severe SOB, accessory muscle use, one word answers, or RR>35 1 Aerosol Med(s), High Flow O2 Breath Sounds Clear Diminished in 1 lobe Diminished in <= 2 lobes Adventitious breath sounds Coarse crackles, Wheezes, or Diminished in >2 lobes 0 Aerosol Med(s), Bronchial Hygiene, Hyperinflation Cough & Sputum Strong cough, no secretion retention or production Weak cough, no secretion retention or production Weak cough, w/ production (less often than Q2hr), or secretion retention No cough, w/ secretion retention or production (less often than Q2hr) Significant secretion production (more often than Q2hr) or mucus plug 0 Aerosol Med(s), Bronchial Hygiene, Hyperinflation Level of Activity Ambulatory Ambulatory with Assist Up in chair or edge of bed (dangle) Non-ambulatory, bedridden with active ROM Completely paralyzed or without active ROM 3 Triage 5 0-2 Triage 4 3-5 Triage 3 6-10 Triage 2 11-14 Triage 1 >=15 Total 6 Triage Score = 3 TRIAGE SCORING - SUGGESTED FREQUENCIES Aerosol Therapy Bronchial Hygiene Hyperinflation Triage Score Q4h & PRN 1 Q4hWA (QID) & PRN 2 TID & PRN 3 BID & PRN 4 PRN 5 Therapy(s) Indicated Yes/No Aerosol Medication y Hyperinflation n Bronchial Hygiene n High Flow Oxygen n RT to enter/modify frequency of treatment order in EMR/EHR to match this RAP evaluation. Based on this RAP evaluation the following therapy is being initiated: aerosols At the following frequency: TID and prn Comments: Thank you for involving Respiratory in the care of this patient, [facility] Nephrology Progress Note Subjective/ 75 y.o. year old female who we are seeing in consultation for ESRD and management of HD. Follows with Dr. Loredo and an outpatient HD schedule M- at [facility]. 06/06: TDC removed for suspicion of infection 06/08: Temp HD catheter placed by Icu followed by dialysis. 06/12: New TDC placed Laying bed, alert and answering questions appropriately Tolerated HD yesterday, 1 L removed BP intermittently low with HD, but improves with midodrine Nods head and attempts to mouth words Chronic trach to vent and PEG BP stable, on the low side No LE edema No change in PFSH All data labs/interval notes and overnight issues are reviewed Objective/ Vitals: 06/19/25 0820 06/19/25 1113 06/19/25 1115 06/19/25 1446 BP: 138/56 BP Location: Left arm Patient Position: Lying Pulse: 68 63 63 64 Resp: 16 15 15 22 Temp: 36.6 C (97.8 F) TempSrc: Axillary SpO2: 99% 100% 98% Weight: Height: 24HR INTAKE/OUTPUT: Intake/Output Summary (Last 24 hours) at 06/19/2025 1457 Last data filed at 06/19/2025 1400 Gross per 24 hour Intake 2435 ml Output -- Net 2435 ml Wt Readings from Last 3 Encounters: 06/11/25 104 kg (229 lb 0.9 oz) Constitutional: Awake, obese HEENT: no pallor/cyanosis or icterus Cardiovascular: S1, S2 without m/r/g Respiratory: CTA, B/l equal air entry trach present Abdomen: +bs, soft, Non tender non distended Ext: No LE edema No CVA tenderness Neurologic Alert and oriented; answers questions Psychiatric Calm and cooperative normal modd and affect Neck: supple, no thyroid enlargement, no JVD elevation Skin: warm, moist, no rashes Tunneled HD catheter RIJ. Medications: Scheduled Meds[1] Continuous Infusions:Continuous Meds[2] PRN Meds:PRN Meds[3] Data/ Recent Labs 06/17/25 0410 06/18/25 0647 06/19/25 0629 WBC 7.8 6.3 7.6 HGB 8.4* 7.6* 7.8* HCT 26.6* 24.4* 25.0* MCV 84.4 85.6 85.9 PLT 230 237 250 Recent Labs 06/17/25 0410 06/18/25 0647 06/19/25 0629 NA 135* 133* 135* K 4.1 4.4 4.0 CL 99 98 99 CO2 24 24 27 GLUCOSE 62* 119* 126* BUN 33* 46* 23 CREATININE 2.72* 3.41* 2.33* Albumin: No components found for: "LABALBU" Calcium: Lab Results Component Value Date CALCIUM 9.1 06/19/2025 Ionized Calcium: No components found for: "IONCA" Magnesium: No results found for: "MG" Phosphorus: No results found for: "PHOS" / 75 y.o. female with ESRD N18.6 C. Difficile A04.72 Anemia D63.1 Volume overload E87.70 Hyponatremia E87.1 Chronic respiratory failure J96.10 Diabetes E11.22 Dependence on hemodialysis RECOMMENDATIONS: - HD schedule M-F at [facility], follows with Dr. Loredo. 1 L UF yesterday, will maintain MWF schedule while inpatient -Tunneled line removed earlier in this admission. New TDC placed on 06/12 in IR after blood cultures negative. - Anemia -Transfuse to keep Hgb > 7.0 ESRD hgb goal > 10. Iron studies reviewed, c/w DORIS therapy - Okay for Midodrine 10 mg 1 hour prior to iHD for BP support during fluid removal. - Slight hyponatremia noted today, will improve with HD, continue to monitor electrolytes - Avoid nephrotoxins and IV contrast dye - Dose all meds per GFR < 15 - We will follow closely -ID following for management of antibiotics, patient will need to stay inpatient until 06/21 for management of IV antibiotics [1] atorvastatin, 40 mg, Per G Tube, Daily busPIRone, 5 mg, Per G Tube, TID carvedilol, 3.125 mg, Per G Tube, BID WC cefepime, 1,000 mg, IntraVENous, q12h chlorhexidine, , Topical, Daily epoetin alpha-epbx, 25 Units/kg, SubCUTAneous, Once per day on Wednesday FLUoxetine, 20 mg, Per G Tube, Daily furosemide, 20 mg, Per G Tube, Daily heparin, 5,000 Units, SubCUTAneous, 2 times per day insulin glargine, 25 Units, SubCUTAneous, BID insulin lispro, 0-6 Units, SubCUTAneous, q6h ipratropium-albuterol, 3 mL, Nebulization, q4h miconazole, , Topical, BID midodrine, 10 mg, Per G Tube, TID minocycline, 100 mg, Oral, BID pantoprazole (ProtoNix) 40 mg in sodium chloride (PF) 0.9 % 10 mL injection, 40 mg, IntraVENous, Nightly sodium chloride 0.9%, 10 mL, IntraCATHeter, q12h sodium chloride, 4 mL, Nebulization, BID stomahesive in petrolatum, , Topical, 3 times per day [2] [3] PRN medications: acetaminophen OR acetaminophen, albumin human, albuterol, dextrose 5 % and sodium chloride 0.45 %, dextrose, dextrose, glucagon (rDNA), glucose, heparin, heparin, heparin, heparin, HYDROmorphone, LORazepam, melatonin, polyethylene glycol (PEG) 3350, promethazine OR promethazine OR promethazine, sodium chloride, sodium chloride, sodium chloride, sodium chloride 0.9%, stomahesive in petrolatum Images from the original note were not included. [facility] [place] [address] [place], [place] [id number] Patient - Rosa Myers, Age - 75 y.o. - 1950 Room Number - 222-04/222-04 A Consulting - Sharyn Amaya MD Primary Care Physician - No [facility] care provider [facility] file[id number] Date of Admission - 06/01/2025 10:53 AM Hospital Day - 18 Problem List[1] Chief Complaint: Jose Maria Myers is a 75 y.o. female who pulmonary is following for VDRF Subjective/Interval History: Patient resting comfortably in bed. No new overnight concerns. Stable on vent. Vent settings: Mode A/C VC+, RR 14, Vt 450, 30% FiO2, PEEP 5 cm H2O A pertinent review of systems was performed and was otherwise non-contributory except as detailed in Subjective section above. Objective: Vitals: BP 138/56 (BP Location: Left arm, Patient Position: Lying) Pulse 68 Temp 36.6 C (97.8 F) (Axillary) Resp 16 Ht 5' 5" (1.651 m) Wt 229 lb 0.9 oz (104 kg) SpO2 99% BMI 38.12 kg/m Pulse Ox: SpO2 Av.2 % Min: 97 % Max: 100 % Supplemental O2: 30% FiO2 on Vent. I/O 24HR INTAKE/OUTPUT: Intake/Output Summary (Last 24 hours) at 06/19/2025 1058 Last data filed at 06/19/2025 0900 Gross per 24 hour Intake 2373 ml Output -- Net 2373 ml Physical Exam:unchanged compared to 06/07 Physical Exam Vitals and nursing note reviewed. Constitutional: General: She is not in acute distress. Comments: Chronically ill appearing Neck: Trachea: Tracheostomy present. Cardiovascular: Rate and Rhythm: Normal rate and regular rhythm. Pulmonary: Effort: Pulmonary effort is normal. No respiratory distress. Breath sounds: No wheezing, rhonchi or rales. Comments: Chronic vent dependence Musculoskeletal: Right lower leg: No edema. Left lower leg: No edema. Skin: General: Skin is warm and dry. Coloration: Skin is not jaundiced. Findings: No lesion or rash. Neurological: Mental Status: Mental status is at baseline. Psychiatric: Mood and Affect: Mood normal. Behavior: Behavior normal. Behavior is cooperative. Medications: Allergies[2] Current Medications[3] PRN Meds[4] Labs: CBC: Recent Labs 06/17/25 0410 06/18/25 0647 06/19/25 0629 WBC 7.8 6.3 7.6 HGB 8.4* 7.6* 7.8* HCT 26.6* 24.4* 25.0* PLT 230 237 250 MCV 84.4 85.6 85.9 RDW 17.8* 18.2* 18.2* BMP: Recent Labs 06/17/25 0410 06/18/25 0647 06/19/25 0629 NA 135* 133* 135* K 4.1 4.4 4.0 CL 99 98 99 CO2 24 24 27 BUN 33* 46* 23 CREATININE 2.72* 3.41* 2.33* CALCIUM 9.3 8.9 9.1 LFTs: Recent Labs 06/17/25 0410 06/18/25 0647 06/19/25 0629 AST 28 24 24 ALT 14 13 10 PROT 6.8 6.2* 6.8 ALBUMIN 2.3* 2.1* 2.5* BILITOT 0.7 0.6 0.7 ALKPHOS 133 122 129 Glucose: Recent Labs 06/17/25 0410 06/17/25 0638 06/17/25 1222 06/17/25 1730 06/17/25 1950 06/18/25 0646 06/18/25 0647 06/18/25 1213 06/18/25 1729 06/19/25 0002 06/19/25 0628 06/19/25 0629 GLUCOSE 62* -- -- -- -- -- 119* -- -- -- -- 126* POCGLU -- < > 106* 118* 135* 123* -- 98 101* 125* 132* -- < > = values in this interval not displayed. Pleural fluid 06/07/25: Lab Results Component Value Date LDHFL 91 06/07/2025 PROTEINFL 3.9 06/07/2025 FLUIDTYPE Pleural Fluid 06/07/2025 FLUIDTYPE Pleural Fluid 06/07/2025 LDH 213 06/08/2025 PROT 6.8 06/19/2025 ALBUMIN 2.5 (L) 06/19/2025 Microbiology: + C difficile Blood cultures: NGTD Dialysis catheter tip: + Serratia marcescens Sputum culture: + Serratia marcescens, Stenotrophomonas maltophilia & Pseudomonas aeruginosa Imaging/ Testing: CXR 06/08/25: IMPRESSION: Lines, tubes, and devices:Interval placement a right IJ approach central venous catheter with tip projecting over the SVC. Tracheostomy tube again projects over the trachea. Lungs and pleura:Prominence of the central pulmonary vasculature without overt pulmonary edema. Hazy bibasilar opacities likely small pleural effusions with associated atelectasis. Superimposed infectious/inflammatory process is not entirely excluded. No interval pneumothorax. Cardiomediastinal silhouette: Stable enlarged cardiac silhouette.Atherosclerotic calcifications of the aortic arch Other: Degenerative changes of the spine and acromioclavicular joints. Assessment and Plan/Recommendations: Chronic respiratory failure with hypoxia. Ventilator dependence Tracheostomy dependence Hx bilateral pleural effusions, transudate Possible PNA- polymicorbial respiratory tract infections. ESRD with pulmonary edema Anemia + C Diff S/p left thoracentesis with removal of 600 ml dacosta fluid, borderline exudate. Culture NGTD. Cytology not collected. Volume management via HD. Nephrology following. New HD catheter placed 06/12 Sputum culture + Serratia, Stenotrophomonas and Pseudomonas. Plan for 2 weeks through 06/21 per ID team. e. Continue DuoNeb's, HTS Respiratory status stable on vent. Continue home settings. No plans for weaning. Routine trach care & pulmonary hygiene Advance Directive: Full Code Discharge planning: Remains stable from pulmonary standpoint. Discharge back to [facility] once antibiotics completed. Case discussed with nurse and patient Questions and concerns addressed. [1] Patient Active Problem List Diagnosis Anemia Anemia, unspecified type Moderate malnutrition (CMS/HCC) (HCC) Acute metabolic encephalopathy Anxiety and depression Debility [2] No Known Allergies [3] Current Facility-Administered Medications: acetaminophen (Tylenol) tablet 650 mg, 650 mg, Oral, q6h PRN, 650 mg at 06/13/252045 OR acetaminophen (Tylenol) suppository 650 mg, 650 mg, Rectal, q6h PRN, Sharyn Amaya MD albumin human 5 % IV solution 25 g, 25 g, IntraVENous, TID PRN, Rad Acosta MD albuterol (2.5 MG/3ML) 0.083% nebulizer solution 2.5 mg, 2.5 mg, Nebulization, q6h PRN, RENITA Tyler CNP atorvastatin (Lipitor) tablet 40 mg, 40 mg, Per G Tube, Daily, Grzegorz Chatterjee MD, 40 mg at 06/18/25 0844 busPIRone (Buspar) tablet 5 mg, 5 mg, Per G Tube, TID, Grzegorz Chatterjee MD, 5 mg at 06/19/25 0951 carvedilol (Coreg) tablet 3.125 mg, 3.125 mg, Per G Tube, BID WC, Raine Etienne MD, 3.125 mg at 06/19/25 0951 cefepime (Maxipime) 1,000 mg in sodium chloride 0.9 % 50 mL IVPB, 1,000 mg, IntraVENous, q12h, Geno Waddell MD, Stopped at 06/19/25 0731 chlorhexidine (Hibiclens) 4 % solution, , Topical, Daily, Anjum Fam MD, Given at 06/18/25 1437 dextrose 5 % and sodium chloride 0.45 % bolus 500 mL, 500 mL, IntraVENous, TID PRN, Rad Acosta MD dextrose 5 % infusion, 100 mL/hr, IntraVENous, PRN, Sharyn Amaya MD, Stopped at 06/02/25 1757 dextrose 50 % solution 12.5 g, 12.5 g, IntraVENous, PRN, Sharyn Amaya MD, 12.5 g at 06/13/25 0524 epoetin jenn-epbx (Retacrit) injection 2,600 Units, 25 Units/kg, SubCUTAneous, Once per day on Wednesday, RENITA Clifford CNP, 2,600 Units at 06/18/25 0855 FLUoxetine (PROzac) capsule 20 mg, 20 mg, Per G Tube, Daily, Grzegorz Chatterjee MD, 20 mg at 06/19/25 0950 furosemide (Lasix) tablet 20 mg, 20 mg, Per G Tube, Daily, Grzegorz Chatterjee MD, 20 mg at 06/18/25 0844 glucagon (human recombinant) injection 1 mg, 1 mg, IntraMUSCular, PRN, Sharyn Amaya MD glucose oral gel 15 g, 15 g, Oral, PRN, Sharyn Amaya MD heparin injection 1,200-2,000 Units, 1,200-2,000 Units, IntraCATHeter, PRN, Mi Singh APRN - METALLURGIST HELPER, 1,800 Units at 06/18/25 1338 heparin injection 1,200-2,000 Units, 1,200-2,000 Units, IntraCATHeter, PRN, Mi Singh APRN - METALLURGIST HELPER, 1,700 Units at 06/18/25 1338 heparin injection 1,200-2,000 Units, 1,200-2,000 Units, IntraCATHeter, PRN, Yamil Newby MD heparin injection 1,200-2,000 Units, 1,200-2,000 Units, IntraCATHeter, PRN, Yamil Newby MD heparin injection 5,000 Units, 5,000 Units, SubCUTAneous, 2 times per day, Sharyn Amaya MD, 5,000 Units at 06/19/25 0950 HYDROmorphone (Dilaudid) injection 0.25 mg, 0.25 mg, IntraVENous, q4h PRN, Robert Jimenez MD insulin glargine (Lantus) injection 25 Units, 25 Units, SubCUTAneous, BID, Sharyn Amaya MD, 25 Units at 06/19/25 0823 Insulin Lispro (Humalog) injection 0-6 Units, 0-6 Units, SubCUTAneous, q6h, Grzegorz Chatterjee MD, 1 Units at 06/14/25 1202 ipratropium-albuterol (Duo-Neb) 0.5-2.5 mg/3 mL nebulizer solution 3 mL, 3 mL, Nebulization, q4h, Neelima Hanks, RENITA - METALLURGIST HELPER, 3 mL at 06/19/25 0722 LORazepam (Ativan) tablet 0.25 mg, 0.25 mg, Per G Tube, q8h PRN, Diana Zabala APRN - RENEE melatonin tablet 3 mg, 3 mg, Per G Tube, Nightly PRN, Diana EzRENITA vazquez - METALLURGIST HELPER miconazole (Micotin) 2 % powder, , Topical, BID, RENITA Gtz CNP, Given at 06/19/25 0952 midodrine (Proamatine) tablet 10 mg, 10 mg, Per G Tube, TID, Grzegorz Chatterjee MD, 10 mg at 06/19/25 0951 minocycline capsule 100 mg, 100 mg, Oral, BID, Kishore Wolff MD, 100 mg at 06/19/25 0950 pantoprazole (ProtoNix) 40 mg in sodium chloride (PF) 0.9 % 10 mL injection, 40 mg, IntraVENous, Nightly, Grzegorz Chatterjee MD, 40 mg at 06/18/25 205 polyethylene glycol (PEG) 3350 (Miralax) packet 17 g, 17 g, Oral, Daily PRN, Sharyn Amaya MD, 17 g at 06/15/25 1350 promethazine (Phenergan) tablet 12.5 mg, 12.5 mg, Oral, q6h PRN OR promethazine (Phenergan) injection 12.5 mg, 12.5 mg, IntraMUSCular, q6h PRN OR promethazine (Phenergan) suppository 12.5 mg, 12.5 mg, Rectal, q6h PRN, Sharyn Amaya MD sodium chloride 0.9 % infusion, 250 mL/hr, IntraVENous, PRN, Omid Orona MD sodium chloride 0.9 % infusion, 250 mL/hr, IntraVENous, PRN, Geno Waddell MD sodium chloride 0.9 % infusion, 250 mL/hr, IntraVENous, PRN, Tomy Hill MD sodium chloride 0.9% (NS) flush 10 mL, 10 mL, IntraCATHeter, q12h, Anjum Fam MD, 10 mL at 06/19/25 0952 sodium chloride 0.9% (NS) flush 10 mL, 10 mL, IntraCATHeter, PRN, Anjum Fam MD sodium chloride 3 % hypertonic nebulizer solution 4 mL, 4 mL, Nebulization, BID, RENITA Tyler CNP, 4 mL at 06/19/25 0726 stomahesive in petrolatum (ET Mix), , Topical, PRN, RENITA Gtz CNP, Given at 06/08/25 1857 stomahesive in petrolatum (ET Mix), , Topical, 3 times per day, RENITA Gtz CNP, Given at 06/19/25 0623 [4] PRN medications: acetaminophen OR acetaminophen, albumin human, albuterol, dextrose 5 % and sodium chloride 0.45 %, dextrose, dextrose, glucagon (rDNA), glucose, heparin, heparin, heparin, heparin, HYDROmorphone, LORazepam, melatonin, polyethylene glycol (PEG) 3350, promethazine OR promethazine OR promethazine, sodium chloride, sodium chloride, sodium chloride, sodium chloride 0.9%, stomahesive in petrolatum Images from the original note were not included. [facility] Wound Care Progress Note Rosa Myers AGE: 75 y.o. GENDER: female : 1950 Subjective: HISTORY of PRESENT ILLNESS HPI Rosa Myers is a 75 y.o. female who presents for a wound follow up. HPI: Ms. Myers is a 75 y.o. female who presents to the emergency department with chief complaint of abnormal blood counts. [facility] that shows hemoglobin of 6.5. Patient has chronic renal failure, per her nursing notes receives dialysis Wednesday through Wednesday at her facility. Patient has tracheostomy in place for chronic respiratory failure, PEG tube in place. Patient is able to answer questions by nodding her head yes and no but somewhat limited history due to tracheostomy in place. Admitted for anemia and chronic renal failure. She is currently admitted to ICU. Wound Care consulted for multiple wounds - coccyx, groin, nose, feet and left leg. Patient resting in ICU bed with trach and on the ventilator. Patient noted to be incontinent of stool, incontinence care completed. Treatment completed. PAST MEDICAL HISTORY Medical History[1] PAST SURGICAL HISTORY Surgical History[2] FAMILY HISTORY Family History[3] SOCIAL HISTORY Social History[4] ALLERGIES Allergies[5] MEDICATIONS Medications Ordered Prior to Encounter[6] REVIEW OF SYSTEMS Pertinent items are noted in HPI. Objective: BP 138/56 (BP Location: Left arm, Patient Position: Lying) Pulse 63 Temp 36.6 C (97.8 F) (Axillary) Resp 15 Ht 5' 5" (1.651 m) Wt 229 lb 0.9 oz (104 kg) SpO2 100% BMI 38.12 kg/m PHYSICAL EXAM General appearance: alert, oriented times 3, and cooperative Skin: warm and dry Pulmonary: NAD, trached on ventilator Abdomen: soft, nontender, and nondistended Extremities: warm and dry Left heel -1.0 x 1.0 x 0.0cm - thin red, dry scab noted, no drainage, jaleesa wound tissue with peeling tissue. 06/18/25 LABS CBC: Lab Results Component Value Date WBC 7.6 06/19/2025 HGB 7.8 (L) 06/19/2025 HCT 25.0 (L) 06/19/2025 MCV 85.9 06/19/2025 PLT 250 06/19/2025 BMP: Lab Results Component Value Date NA 135 (L) 06/19/2025 K 4.0 06/19/2025 CL 99 06/19/2025 CO2 27 06/19/2025 BUN 23 06/19/2025 CREATININE 2.33 (H) 06/19/2025 PT/INR: No results found for: "PROTIME", "INR" Prealbumin: No results found for: "PREALBUMIN" Albumin:No components found for: LABALBU Sed Rate:No results found for: SEDRATE Micro: No components found for: BC Assessment/Plan: Nursing staff to perform dressing change: Left heel Stage 2 pressure injury (POA): -cleanse with NS, apply skin barrier wipe, leave PRAVEEN daily and PRN -continue ICU bed -Q2hr/PRN turns -glide sheets for T&R -continence checks Q1-2 Hrs/PRN Nutritional support Wound Care to follow Recommend to follow up at [facility] wound care center after hospital discharge. Any questions or concerns please secure chat "[facility] wound/ostomy". I personally obtained the soto and critical portions of the history and physical exam. I reviewed the labs, imaging studies, and electronic medical record. I reviewed the chart documentation and discussed the patient with treatment team members. I have edited the note to reflect my clinical findings and my assessment and plan. Please note, the time of this note does not reflect the time I saw this patient today, but the time of this documentaton. Portions of this note including HPI, ROS, impression/plan, and examination may have been copied forward from admission to today as to provide important historical information essential in contributing to medical decision making. Documentation has been reviewed and edited as necessary to support clinical decision making for today's visit and to reflect my own independent evaluation of this patient. Decision making for today's visit and to reflect my own independent evaluation of this patient. [1] No past medical history on file. [2] No past surgical history on file. [3] No family history on file. [4] Social History Tobacco Use Smoking status: Never Passive exposure: Past Smokeless tobacco: Never [5] No Known Allergies [6] No current facility-administered medications on file prior to encounter. Current Outpatient Medications on File Prior to Encounter Medication Sig Dispense Refill atorvastatin (Lipitor) 40 MG tablet Take 40 mg by mouth daily. Via PEG busPIRone (Buspar) 5 MG tablet Take 5 mg by mouth 3 times daily. carvedilol (Coreg) 12.5 MG tablet Take 12.5 mg by mouth 2 times daily. Hold before dialysis FLUoxetine (PROzac) 20 MG/5ML solution Take 20 mg by mouth daily. Via PEG furosemide (Lasix) 20 MG tablet Take 20 mg by mouth daily. Via PEG, given on wed/Wednesday for weight gain insulin glargine (Lantus) 100 UNIT/ML injection Inject 25 Units under the skin 2 times daily. Insulin Lispro (Humalog) 100 UNIT/ML solution injection Inject 2-12 Units under the skin 3 times daily (with meals). Sliding scale: 150-200 = 2 units, 102-250 = 4 units, 251-300 = 6 units, 301-350 = 8 units, 351-400 = 10 units, 401-450 = 12 units midodrine (Proamatine) 10 MG tablet Take 10 mg by mouth 3 times daily. Via PEG, given M- 1hr prior to dialysis pantoprazole (ProtoNix) 20 MG EC tablet Take 20 mg by mouth every morning (before breakfast). Do not crush, chew, or split. Petrolatum ointment Apply 1 Application topically 2 times daily as needed (forehead itching). Hospitalist Progress Note 06/19/2025 [phone]: Please secure chat [place] for patient care issues. [phone]: Please secure chat [facility] Hospitalist for any issues. Subjective: Admit Date: 06/01/2025 PCP: No primary care provider on file. Room#: 222-04/222-04 A Brief History:Rosa Myers is a 75 y.o. female who presents with Anemia She is a patient from [facility], chronic tracheostomy and chronic vent therapy, on hemodialysis, concern for line infection , removal of indwelling temporary dialysis catheter and insertion of right-sided dual-lumen dialysis catheter. Patient being treated for pneumonia hazy bibasilar opacities Consults : Pulmonology Chief Complaint : On trach and vent pulmonology following, response with slow voice On chronic ventilator therapy, tracheostomy in place Diet, tube feeding no tray PEG; Nepro w/CARB Steady; Continuous; No; 40; 40 @[id number]@ 24HR INTAKE/OUTPUT: Intake/Output Summary (Last 24 hours) at 06/19/2025 0926 Last data filed at 06/19/2025 0731 Gross per 24 hour Intake 2138 ml Output -- Net 2138 ml Past Medical History: Medical History[1] LABS: CBC: Recent Labs 06/17/25 04106/18/25 0647 06/19/25 0629 WBC 7.8 6.3 7.6 RBC 3.15* 2.85* 2.91* HGB 8.4* 7.6* 7.8* HCT 26.6* 24.4* 25.0* MCV 84.4 85.6 85.9 RDW 17.8* 18.2* 18.2* PLT 230 237 250 BMP: Recent Labs 06/17/25 04106/18/25 0647 06/19/25 0629 NA 135* 133* 135* K 4.1 4.4 4.0 CL 99 98 99 CO2 24 24 27 BUN 33* 46* 23 CREATININE 2.72* 3.41* 2.33* GLUCOSE 62* 119* 126* CALCIUM 9.3 8.9 9.1 ANIONGAP 12 11 9 LIVER PROFILE: Recent Labs 06/17/2540906/18/25 0647 06/19/25 0629 AST 28 24 24 ALT 14 13 10 BILITOT 0.7 0.6 0.7 ALKPHOS 133 122 129 PROT 6.8 6.2* 6.8 PT/INR: No results for input(s): "PROTIME", "INR" in the last 72 hours. CARDIAC ENZYMES: No results for input(s): "TROPONINI" in the last 72 hours. Procalcitonin: No results found for: "PROCAL" COVID-19 PCR: No results for input(s): "COVID19" in the last 72 hours. Objective: Vitals: BP 138/56 (BP Location: Left arm, Patient Position: Lying) Pulse 68 Temp 36.6 C (97.8 F) (Axillary) Resp 16 Ht 5' 5" (1.651 m) Wt 229 lb 0.9 oz (104 kg) SpO2 99% BMI 38.12 kg/m Pulse Ox: SpO2 Av.2 % Min: 97 % Max: 100 % Physical Exam General appearance: No apparent distress, appears stated age, AAOX3 Oral: Tongue is semi-moist Cardiovascular: S1/S2 heard, RRR Right internal jugular tunneled dialysis catheter Respiratory: Diminished air entry anteriorly, tracheostomy site is red and inflamed Abdomen: Soft, non-tender, non-distended bowel sounds positive, PEG tube in place Musculoskeletal: Bilateral venous stasis changes Medications: Continuous Meds[2] Scheduled Meds[3] Assessment Acute Problems : Altered mental status and hallucinations resolved Acute on chronic anemia Chronic bilateral pleural effusions-status post ultrasound-guided left thoracentesis with 600 mL removed Pneumonia bilateral and healthcare associated, respiratory culture growing Serratia marcescens, stenotrophomonas sp, Pseudomonas aeruginosa Chronic respiratory failure tracheostomy dependent Concern for tunneled line infection-wound tip growing Serratia marcescens C. difficile infection Hypokalemia Pressure ulcers present on admission ESRD on HD chronic heart failure Severe malnutrition GERD Anxiety Depression Type 2 diabetes Chronic candidiasis Neuropathy Stable chronic problems affecting care, new non-acute diagnoses: Medical Decision Making 06/19 -on cefepime and minocycline, total 2 weeks of antibiotics per ID, appreciate pulmonology input for vent management PEG tube feeding and management, wound care following -am labs, replace lytes prn -increase activity -DVT prophylaxis: [] Lovenox [] Heparin [] SCDs [x] Encourage ambulation [] Already on Anticoagulation - GI prophylaxis : Anticipated Discharge - Date - - Location - - Pending the following - Total time spent (which include face to face and non face to face encounters) : 45 minutes Toxic drug monitoring/narrow therapeutic index drug monitoring : # Drug name : # Route administered : # Method of monitoring : No emergency contact information on file. Sharyn Amaya MD Division of Hospitalist Medicine [employer] PAGER: Epic chat [1] No past medical history on file. [2] [3] atorvastatin, 40 mg, Per G Tube, Daily busPIRone, 5 mg, Per G Tube, TID carvedilol, 3.125 mg, Per G Tube, BID WC cefepime, 1,000 mg, IntraVENous, q12h chlorhexidine, , Topical, Daily epoetin alpha-epbx, 25 Units/kg, SubCUTAneous, Once per day on Wednesday FLUoxetine, 20 mg, Per G Tube, Daily furosemide, 20 mg, Per G Tube, Daily heparin, 5,000 Units, SubCUTAneous, 2 times per day insulin glargine, 25 Units, SubCUTAneous, BID insulin lispro, 0-6 Units, SubCUTAneous, q6h ipratropium-albuterol, 3 mL, Nebulization, q4h miconazole, , Topical, BID midodrine, 10 mg, Per G Tube, TID minocycline, 100 mg, Oral, BID pantoprazole (ProtoNix) 40 mg in sodium chloride (PF) 0.9 % 10 mL injection, 40 mg, IntraVENous, Nightly sodium chloride 0.9%, 10 mL, IntraCATHeter, q12h sodium chloride, 4 mL, Nebulization, BID stomahesive in petrolatum, , Topical, 3 times per day [facility] Respiratory Care Department Progress Note Spontaneous Awakening Trial Wean Screen SpO2>/=88%: Yes (06/19/25431) FiO2</=50%: Yes (06/19/25431) PEEP </=8cmH2O: Yes (06/19/25431) HR <140 BPM: Yes (06/19/25431) RR </= 35 breaths/min: Yes (06/19/25431) MAP >/= 65mmHg: Yes (06/19/25431) Arterial pH >7.30: Yes (06/19/25431) Safety Screen Spontaneous Breathing Trial (SBT - RT) : SBT Held - Chronic Ventilator Dependent (06/19/25431) Spontaneous Breathing Trial Vent Settings Vent Mode: Assist control (06/18/252140) Mandatory Type: VC+ (06/18/252140) Resp Rate (Set): 14 (06/18/251648) Vt (Set, mL): 450 mL (06/18/251648) FiO2 (%): 30 % (06/18/252140) PEEP/CPAP (cm H2O): 5 cm H20 (06/18/251648) Inspiratory Time (sec): 0.9 sec (06/18/251648) Vitals MAP (mmHg): 66 (06/18/252140) Heart Rate: 68 (06/18/25 1353) Resp: 18 (09/22/25 2141) SpO2: 97 % (06/18/252140) Suctioning/Secretions Secretion Amount: Small (06/18/252129) Secretion Color: White, Yellow (06/18/251648) Secretion Consistency: Thick (06/18/251648) ABG results No results for input(s): "PHART", "YQK5PJM", "PO2ART", "VDA7UYF", "SO2ART", "P1KVKBUN" in the last 72 hours. Does this patient meet criteria for termination of mechanical ventilation No - Chronic Vent Dependent Name of physician notified via secure chat or in person : (NA if patient did not meet criteria) Comments: Thank you for involving Respiratory in the care of this patient, Hospitalist Progress Note 06/18/2025 [phone]: Please secure chat me for patient care issues. [phone]: Please secure chat [facility] Hospitalist for any issues. Subjective: Admit Date: 06/01/2025 PCP: No primary care provider on file. Room#: 222-04/222-04 A Brief History:Rosa Myers is a 75 y.o. female who presents with Anemia She is a patient from [facility], chronic tracheostomy and chronic vent therapy, on hemodialysis Consults : Pulmonology Chief Complaint : Currently having a dialysis session, tracheostomy tube being suction Left heel ulcer-wound care following Diet, tube feeding no tray PEG; Nepro w/CARB Steady; Continuous; No; 40; 40 @[id number]@ 24HR INTAKE/OUTPUT: No intake or output data in the 24 hours ending 06/18/25 1257 Past Medical History: Medical History[1] LABS: CBC: Recent Labs 06/16/25 0545 06/17/25 0410 06/18/25 0647 WBC 6.2 7.8 6.3 RBC 2.87* 3.15* 2.85* HGB 7.6* 8.4* 7.6* HCT 24.7* 26.6* 24.4* MCV 86.1 84.4 85.6 RDW 18.2* 17.8* 18.2* PLT 217 230 237 BMP: Recent Labs 06/16/25 0545 06/17/25 0410 06/18/25 0647 NA 137 135* 133* K 4.4 4.1 4.4 CL 100 99 98 CO2 27 24 24 BUN 20 33* 46* CREATININE 1.89* 2.72* 3.41* GLUCOSE 131* 62* 119* CALCIUM 8.6* 9.3 8.9 ANIONGAP 10 12 11 LIVER PROFILE: Recent Labs 06/16/25 0545 06/17/25 0410 06/18/25 0647 AST 26 28 24 ALT 12 14 13 BILITOT 0.5 0.7 0.6 ALKPHOS 127 133 122 PROT 6.3* 6.8 6.2* PT/INR: No results for input(s): "PROTIME", "INR" in the last 72 hours. CARDIAC ENZYMES: No results for input(s): "TROPONINI" in the last 72 hours. Procalcitonin: No results found for: "PROCAL" COVID-19 PCR: No results for input(s): "COVID19" in the last 72 hours. Objective: Vitals: BP 122/52 Pulse 66 Temp 36.8 C (98.2 F) Resp 21 Ht 5' 5" (1.651 m) Wt 229 lb 0.9 oz (104 kg) SpO2 98% BMI 38.12 kg/m Pulse Ox: SpO2 Av.3 % Min: 96 % Max: 98 % Physical Exam General appearance: No apparent distress, appears stated age, AAOX3 Oral: Tongue is semi-moist Cardiovascular: S1/S2 heard, RRR Respiratory: Clear to auscultation bilaterally, tracheostomy site red and inflamed Abdomen: Soft, non-tender, non-distended bowel sounds positive Musculoskeletal: Bilateral venous stasis changes Skin: Tunneled line removed, dressing in place, no redness or erythema Medications: Continuous Meds[2] Scheduled Meds[3] Assessment Acute Problems : Altered mental status and hallucinations resolved Acute on chronic anemia Chronic bilateral pleural effusions Pneumonia Chronic respiratory failure tracheostomy dependent Concern for tunneled line infection C. difficile infection Hypokalemia Pressure ulcers present on admission ESRD on HD chronic heart failure Severe malnutrition GERD Anxiety Depression Type 2 diabetes Chronic candidiasis Neuropathy Stable chronic problems affecting care, new non-acute diagnoses: Medical Decision Making 06/18 -patient had extended-care facility, having dialysis session,On cefepime/minocycline, (wound from trachea growing Pseudomonas aeruginosa, blood cultures no growth so far ) hydromorphone for pain relief, tube feeding Nepro PRBC transfusion as necessary -am labs, replace lytes prn -increase activity -DVT prophylaxis: [] Lovenox [x] Heparin [] SCDs [x] Encourage ambulation [] Already on Anticoagulation - GI prophylaxis : Anticipated Discharge - Date - - Location - - Pending the following - Total time spent (which include face to face and non face to face encounters) : 45 minutes Toxic drug monitoring/narrow therapeutic index drug monitoring : # Drug name : Heparin # Route administered : Subcutaneous # Method of monitoring : Platelets No emergency contact information on file. Sharyn Amaya MD Division of Hospitalist Medicine [facility] PAGER: [employer] chat [1] No past medical history on file. [2] [3] atorvastatin, 40 mg, Per G Tube, Daily busPIRone, 5 mg, Per G Tube, TID carvedilol, 3.125 mg, Per G Tube, BID WC cefepime, 1,000 mg, IntraVENous, q12h chlorhexidine, , Topical, Daily epoetin alpha-epbx, 25 Units/kg, SubCUTAneous, Once per day on Wednesday FLUoxetine, 20 mg, Per G Tube, Daily furosemide, 20 mg, Per G Tube, Daily heparin, 5,000 Units, SubCUTAneous, 2 times per day insulin glargine, 25 Units, SubCUTAneous, BID insulin lispro, 0-6 Units, SubCUTAneous, q6h ipratropium-albuterol, 3 mL, Nebulization, q4h miconazole, , Topical, BID midodrine, 10 mg, Per G Tube, TID minocycline, 100 mg, Oral, BID pantoprazole (ProtoNix) 40 mg in sodium chloride (PF) 0.9 % 10 mL injection, 40 mg, IntraVENous, Nightly sodium chloride 0.9%, 10 mL, IntraCATHeter, q12h sodium chloride, 4 mL, Nebulization, BID stomahesive in petrolatum, , Topical, 3 times per day [facility] Nephrology Progress Note Subjective/ 75 y.o. year old female who we are seeing in consultation for ESRD and management of HD. Follows with Dr. Loredo and an outpatient HD schedule M- at [facility]. 06/06: TDC removed for suspicion of infection 06/08: Temp HD catheter placed by Icu followed by dialysis. 06/12: New TDC placed Laying bed, alert and answering questions appropriately Tolerating HD at time of exam BP intermittently low with HD, but improves with midodrine Nods head and attempts to mouth words Chronic trach to vent and PEG BP stable, on the low side No LE edema No change in PFSH All data labs/interval notes and overnight issues are reviewed Objective/ Vitals: 06/18/25 1145 06/18/25 1200 06/18/25 1215 06/18/25 1230 BP: (!) 122/43 (!) 129/44 130/53 106/50 Pulse: 63 63 60 72 Resp: 21 Temp: TempSrc: SpO2: 98% Weight: Height: 24HR INTAKE/OUTPUT: No intake or output data in the 24 hours ending 06/18/25 1242 Wt Readings from Last 3 Encounters: 06/11/25 104 kg (229 lb 0.9 oz) Constitutional: Awake, obese HEENT: no pallor/cyanosis or icterus Cardiovascular: S1, S2 without m/r/g Respiratory: CTA, B/l equal air entry trach present Abdomen: +bs, soft, Non tender non distended Ext: No LE edema No CVA tenderness Neurologic Alert and oriented; answers questions Psychiatric Calm and cooperative normal modd and affect Neck: supple, no thyroid enlargement, no JVD elevation Skin: warm, moist, no rashes Tunneled HD catheter RIJ. Medications: Scheduled Meds[1] Continuous Infusions:Continuous Meds[2] PRN Meds:PRN Meds[3] Data/ Recent Labs 06/16/25 0545 06/17/25 0410 06/18/25 0647 WBC 6.2 7.8 6.3 HGB 7.6* 8.4* 7.6* HCT 24.7* 26.6* 24.4* MCV 86.1 84.4 85.6 PLT 217 230 237 Recent Labs 06/16/25 0545 06/17/25 0410 06/18/25 0647 NA 137 135* 133* K 4.4 4.1 4.4 CL 100 99 98 CO2 27 24 24 GLUCOSE 131* 62* 119* BUN 20 33* 46* CREATININE 1.89* 2.72* 3.41* Albumin: No components found for: "LABALBU" Calcium: Lab Results Component Value Date CALCIUM 8.9 06/18/2025 Ionized Calcium: No components found for: "IONCA" Magnesium: No results found for: "MG" Phosphorus: No results found for: "PHOS" / y.o. female with ESRD N18.6 C. Difficile A04.72 Anemia D63.1 Volume overload E87.70 Hyponatremia E87.1 Chronic respiratory failure J96.10 Diabetes E11.22 Dependence on hemodialysis RECOMMENDATIONS: - HD schedule M-F at [facility], follows with Dr. Loredo. 600 mL removed Wednesday. Tolerating HD today during exam. Will maintain MWF schedule while inpatient. -Tunneled line removed last week for infection. New TDC placed on 06/12 in IR after blood cultures negative. - Anemia -Transfuse to keep Hgb > 7.0 ESRD hgb goal > 10. Iron studies reviewed, c/w DORIS therapy - Okay for Midodrine 10 mg 1 hour prior to iHD for BP support during fluid removal. - Slight hyponatremia noted today, will improve with HD, continue to monitor electrolytes - Avoid nephrotoxins and IV contrast dye - Dose all meds per GFR < 15 - We will follow closely -ID following for management of antibiotics, patient will need to stay inpatient until 06/21 for management of IV antibiotics - Plan d/w dialysis team [1] atorvastatin, 40 mg, Per G Tube, Daily busPIRone, 5 mg, Per G Tube, TID carvedilol, 3.125 mg, Per G Tube, BID WC cefepime, 1,000 mg, IntraVENous, q12h chlorhexidine, , Topical, Daily epoetin alpha-epbx, 25 Units/kg, SubCUTAneous, Once per day on Wednesday FLUoxetine, 20 mg, Per G Tube, Daily furosemide, 20 mg, Per G Tube, Daily heparin, 5,000 Units, SubCUTAneous, 2 times per day insulin glargine, 25 Units, SubCUTAneous, BID insulin lispro, 0-6 Units, SubCUTAneous, q6h ipratropium-albuterol, 3 mL, Nebulization, q4h miconazole, , Topical, BID midodrine, 10 mg, Per G Tube, TID minocycline, 100 mg, Oral, BID pantoprazole (ProtoNix) 40 mg in sodium chloride (PF) 0.9 % 10 mL injection, 40 mg, IntraVENous, Nightly sodium chloride 0.9%, 10 mL, IntraCATHeter, q12h sodium chloride, 4 mL, Nebulization, BID stomahesive in petrolatum, , Topical, 3 times per day [2] [3] PRN medications: acetaminophen OR acetaminophen, albumin human, albuterol, dextrose 5 % and sodium chloride 0.45 %, dextrose, dextrose, glucagon (rDNA), glucose, heparin, heparin, heparin, heparin, HYDROmorphone, LORazepam, melatonin, polyethylene glycol (PEG) 3350, promethazine OR promethazine OR promethazine, sodium chloride, sodium chloride, sodium chloride, sodium chloride 0.9%, stomahesive in petrolatum Cosigned by Coleman Toney MD at 06/18/2025 1:16 PM EDT Associated attestation - Coleman Toney MD - 06/18/2025 1:16 PM EDT I have reviewed the above assessment and plan with the FULL STACK DEVELOPER. I agree with above note. HD MWF. [facility] Geriatric Medicine Inpatient Consult Service Admission Date: 06/01/2025 Assessment Principal Problem: Anemia Active Problems: Anemia, unspecified type Moderate malnutrition (CMS/HCC) (HCC) Acute metabolic encephalopathy Anxiety and depression Debility Plan Acute Metabolic Encephalopathy 06/18: Improved. Continue plan. --Etiology likely due to multiple acute/recent illnesses including polymicrobial pneumonia, HD cath infection, c diff, anemia, hospital environment --Encourage family visits and sleep hygiene --If agitated, assess for and consider treating for pain Consider scheduling Tylenol due to limited ability to communicate needs --QTc= QTC 552 ms in setting of LBBB --No antipsychotic due to QTc>500; if patient is danger to self/others/treatment consider low dose benzo use Recommend Lorazepam 0.25mg via peg every 8 hours as needed for agitation or anxiety. Monitor for paradoxical agitation or worsening confusion. No adverse effects documented or reported after receiving Lorazepam 06/12. --PRN melatonin at HS --Monitor for constipation/urinary retention - last BM 06/18 --Possible medication contributions: Lorazepam, Morphine, cefepime. Morphine has been discontinued. Depression Anxiety --Continue Fluoxetine 20mg daily --Continue Buspirone 5mg TID --Add Lorazepam for short term use while hospitalized 06/18: appears controlled. No use of PRN Ativan. Continue plan. Debility Contributing factors: CHF/heart disease, diabetes, neuropathy, ESRD, multiple acute illnesses --Since March, she has been at [facility] --candelaria lift at baseline -Per her [facility]itentiary facesheet, her Yamil and son Marcell are her emergency contacts 06/18: Anticipate return to ECF once medically improved OK to discharge to ECF from geriatric perspective once cleared medically Follow-up: prn, please page with any questions/issues Subjective Chief Complaint: Chief Complaint Patient presents with Other Sent from [facility] for low HGB, [facility]. Pt is trach/vent dependant, A&Ox2-3 per EMS. RT called to the bedside. Pt does daily hemodialysis through R chest wall cath Geriatrics consulted for Delirium HPI- The patient is known to me. 75 y.o. year-old female with past medical history of ESRD on hemodialysis, diabetes, trach and peg (January 2025: had CHF exacerbation, required intubation, required PEG/trach), hyperlipidemia, CAD, polyneuropathy, CHF who was admitted to acute care from [facility] ([facility]) for severe anemia (hgb 6.5). She has been admitted since 06/01. Received 1 unit of PRBC. Being treated for pleural effusion s/p thoracentesis. She is being treated for pneumonia from pseudomonas aeruginosa, serratia marcescens, and stenotrophomonas maltophilia. Her HD cath was infected with serratia marcescens. It was removed on 06/06. She will be on cefepime for a total 2 weeks due to her infections. She is on minocycline for 10 days. Found to have cdiff, and treatment was completed on 06/12. Interval History: Remains on ICU under medical service. No use of PRN Ativan No use of PRN Hydromorphone Patient alert. Mouths "I don't know" when asked where she is. She shakes head no when asked if she has pain. Shrugs her shoulders up when asked how she is feeling. Nursing reports no anxiety, agitation. Review of Systems Musculoskeletal: Negative for arthralgias. Psychiatric/Behavioral: Negative for sleep disturbance. The patient is not nervous/anxious. Objective BP 121/52 Pulse 63 Temp 36.8 C (98.2 F) Resp 14 Ht 5' 5" (1.651 m) Wt 229 lb 0.9 oz (104 kg) SpO2 97% BMI 38.12 kg/m No intake or output data in the 24 hours ending 06/18/25 1134 Wt Readings from Last 3 Encounters: 06/11/25 229 lb 0.9 oz (104 kg) Current Medications[1] Physical Exam Vitals reviewed. Constitutional: General: She is not in acute distress. Neck: Comments: Trach Cardiovascular: Rate and Rhythm: Normal rate and regular rhythm. Pulmonary: Comments: ventilator Abdominal: General: Bowel sounds are normal. There is no distension. Palpations: Abdomen is soft. Tenderness: There is no abdominal tenderness. Comments: Peg tube Musculoskeletal: Right lower leg: No edema. Left lower leg: No edema. Neurological: Mental Status: She is alert. She is disoriented. Psychiatric: Attention and Perception: Attention normal. Mood and Affect: Mood normal. Behavior: Behavior is cooperative. Labs and Imaging: Recent Results (from the past 24 hours) POCT glucose meter Collection Time: 06/17/25 12:22 PM Result Value Ref Range Glucose 106 (H) 70 - 100 mg/dL POCT glucose meter Collection Time: 06/17/25 5:30 PM Result Value Ref Range Glucose 118 (H) 70 - 100 mg/dL POCT glucose meter Collection Time: 06/17/25 7:50 PM Result Value Ref Range Glucose 135 (H) 70 - 100 mg/dL POCT glucose meter Collection Time: 06/18/25 6:46 AM Result Value Ref Range Glucose 123 (H) 70 - 100 mg/dL CBC auto differential Collection Time: 06/18/25 6:47 AM Result Value Ref Range Auto WBC 6.3 3.6 - 10.7 10*3/uL RBC 2.85 (L) 3.80 - 5.20 10*6/uL Hemoglobin 7.6 (L) 11.7 - 16.0 g/dL Hematocrit 24.4 (L) 35.0 - 47.0 % MCV 85.6 77.0 - 99.0 fL MCH 26.7 26.0 - 34.0 pg MCHC 31.1 30.5 - 36.0 % RDW 18.2 (H) 11.5 - 15.0 % Platelets 237 140 - 440 10*3/uL MPV 10.4 9.0 - 12.7 fL nRBC 0.0 0.0 - 2.0 /100 WBCs Neutrophils Relative 70.4 38.0 - 82.0 % Lymphocytes Relative 14.9 (L) 15.0 - 45.0 % Monocytes Relative 9.9 5.0 - 13.0 % Eosinophils Relative 3.5 0.0 - 6.0 % Basophils Relative 1.0 0.0 - 2.0 % Immature Grans % 0.3 0.0 - 2.0 % Neutrophils Absolute 4.4 1.8 - 7.5 10*3/uL Lymphocytes Absolute 0.9 (L) 1.0 - 4.3 10*3/uL Monocytes Absolute 0.6 0.0 - 0.9 10*3/uL Eosinophils Absolute 0.2 0.0 - 0.5 10*3/uL Basophils Absolute 0.1 0.0 - 0.2 10*3/uL Immature Grans Absolute 0.0 <0.1 10*3/uL Comprehensive metabolic panel Collection Time: 06/18/25 6:47 AM Result Value Ref Range SODIUM 133 (L) 136 - 145 mmol/L POTASSIUM 4.4 3.5 - 5.1 mmol/L CHLORIDE 98 98 - 107 mmol/L CARBON DIOXIDE 24 23 - 31 mmol/L ANION GAP 11 3 - 13 mmol/L UREA NITROGEN 46 (H) 9 - 23 mg/dL CREATININE 3.41 (H) 0.57 - 1.11 mg/dL GLUCOSE 119 (H) 82 - 115 mg/dL CALCIUM 8.9 8.8 - 10.0 mg/dL AST (SGOT) 24 <34 U/L ALT 13 <30 U/L ALKALINE PHOSPHATASE 122 40 - 150 U/L ALBUMIN 2.1 (L) 3.4 - 4.8 g/dL BILIRUBIN, TOTAL 0.6 <1.2 mg/dL TOTAL PROTEIN 6.2 (L) 6.4 - 8.3 g/dL eGFR 13.3 (L) >60.0 mL/min/1.73m*2 Lab Results Component Value Date TSH 3.23 06/14/2025 Lab Results Component Value Date [id number] 1,032 (H) 06/02/2025 No results found for: "VITD25" Reviewed: allergies, previous encounters, active problem lists, medications, and labs [1] Current Facility-Administered Medications: acetaminophen (Tylenol) tablet 650 mg, 650 mg, Oral, q6h PRN, 650 mg at 06/13/252045 OR acetaminophen (Tylenol) suppository 650 mg, 650 mg, Rectal, q6h PRN, Sharyn Amaya MD albumin human 5 % IV solution 25 g, 25 g, IntraVENous, TID PRN, Rad Acosta MD albuterol (2.5 MG/3ML) 0.083% nebulizer solution 2.5 mg, 2.5 mg, Nebulization, q6h PRN, Neelima Hanks APRN - [facility] atorvastatin (Lipitor) tablet 40 mg, 40 mg, Per G Tube, Daily, Grzegorz Chatterjee MD, 40 mg at 06/18/25 0844 busPIRone (Buspar) tablet 5 mg, 5 mg, Per G Tube, TID, Grzegorz Chatterjee MD, 5 mg at 06/18/25 0844 carvedilol (Coreg) tablet 3.125 mg, 3.125 mg, Per G Tube, BID WC, Raine Etienne MD, 3.125 mg at 06/18/25 0844 cefepime (Maxipime) 1,000 mg in sodium chloride 0.9 % 50 mL IVPB, 1,000 mg, IntraVENous, q12h, Geno Waddell MD, Stopped at 06/18/25 0639 chlorhexidine (Hibiclens) 4 % solution, , Topical, Daily, Anjum Fam MD, Given at 06/17/25 1428 dextrose 5 % and sodium chloride 0.45 % bolus 500 mL, 500 mL, IntraVENous, TID PRN, Rad Acosta MD dextrose 5 % infusion, 100 mL/hr, IntraVENous, PRN, Sharyn Amaya MD, Stopped at 06/02/25 1757 dextrose 50 % solution 12.5 g, 12.5 g, IntraVENous, PRN, Sharyn Amaya MD, 12.5 g at 06/13/25 0524 epoetin jenn-epbx (Retacrit) injection 2,600 Units, 25 Units/kg, SubCUTAneous, Once per day on Wednesday, Mi Singh APRN - [facility], 2,600 Units at 06/18/25 0855 FLUoxetine (PROzac) capsule 20 mg, 20 mg, Per G Tube, Daily, Grzegorz Chatterjee MD, 20 mg at 06/18/25 0844 furosemide (Lasix) tablet 20 mg, 20 mg, Per G Tube, Daily, Grzegorz Chatterjee MD, 20 mg at 06/18/25 0844 glucagon (human recombinant) injection 1 mg, 1 mg, IntraMUSCular, PRN, Sharyn Amaya MD glucose oral gel 15 g, 15 g, Oral, PRN, Sharyn Amaya MD heparin injection 1,200-2,000 Units, 1,200-2,000 Units, IntraCATHeter, PRN, Mi Singh APRN - [employer], 1,800 Units at 06/15/25 1303 heparin injection 1,200-2,000 Units, 1,200-2,000 Units, IntraCATHeter, PRN, Mi Singh APRN - [employer], 1,700 Units at 06/15/25 1303 heparin injection 1,200-2,000 Units, 1,200-2,000 Units, IntraCATHeter, PRN, Yamil Newby MD heparin injection 1,200-2,000 Units, 1,200-2,000 Units, IntraCATHeter, PRN, Yamil Newby MD heparin injection 5,000 Units, 5,000 Units, SubCUTAneous, 2 times per day, Sharyn Amaya MD, 5,000 Units at 06/18/25 0844 HYDROmorphone (Dilaudid) injection 0.25 mg, 0.25 mg, IntraVENous, q4h PRN, Robert Jimenez MD insulin glargine (Lantus) injection 25 Units, 25 Units, SubCUTAneous, BID, Sharyn Amaya MD, 25 Units at 06/18/25 0855 Insulin Lispro (Humalog) injection 0-6 Units, 0-6 Units, SubCUTAneous, q6h, Grzegorz Chatterjee MD, 1 Units at 06/14/25 1202 ipratropium-albuterol (Duo-Neb) 0.5-2.5 mg/3 mL nebulizer solution 3 mL, 3 mL, Nebulization, q4h, RENITA Tyler CNP, 3 mL at 06/18/25 0824 LORazepam (Ativan) tablet 0.25 mg, 0.25 mg, Per G Tube, q8h PRN, RENITA Schwartz CNP melatonin tablet 3 mg, 3 mg, Per G Tube, Nightly PRN, RENITA Schwartz CNP miconazole (Micotin) 2 % powder, , Topical, BID, RENITA Gtz CNP, Given at 06/18/25843 midodrine (Proamatine) tablet 10 mg, 10 mg, Per G Tube, TID, Grzegorz Chatterjee MD, 10 mg at 06/18/25 08 minocycline capsule 100 mg, 100 mg, Oral, BID, Kishore Wolff MD, 100 mg at 06/18/25 08 pantoprazole (ProtoNix) 40 mg in sodium chloride (PF) 0.9 % 10 mL injection, 40 mg, IntraVENous, Nightly, Grzegorz Chatterjee MD, 40 mg at 06/17/252024 polyethylene glycol (PEG) 3350 (Miralax) packet 17 g, 17 g, Oral, Daily PRN, Sharyn Amaya MD, 17 g at 06/15/25 1350 promethazine (Phenergan) tablet 12.5 mg, 12.5 mg, Oral, q6h PRN OR promethazine (Phenergan) injection 12.5 mg, 12.5 mg, IntraMUSCular, q6h PRN OR promethazine (Phenergan) suppository 12.5 mg, 12.5 mg, Rectal, q6h PRN, Sharyn Amaya MD sodium chloride 0.9 % infusion, 250 mL/hr, IntraVENous, PRN, Omid Orona MD sodium chloride 0.9 % infusion, 250 mL/hr, IntraVENous, PRN, Geno Waddell MD sodium chloride 0.9 % infusion, 250 mL/hr, IntraVENous, PRN, Tomy Hill MD sodium chloride 0.9% (NS) flush 10 mL, 10 mL, IntraCATHeter, q12h, Anjum Fam MD, 10 mL at 06/18/25 0845 sodium chloride 0.9% (NS) flush 10 mL, 10 mL, IntraCATHeter, PRN, Anjum Fam MD sodium chloride 3 % hypertonic nebulizer solution 4 mL, 4 mL, Nebulization, BID, RENITA Tyler CNP, 4 mL at 06/18/25 0832 stomahesive in petrolatum (ET Mix), , Topical, PRN, RENITA Gtz CNP, Given at 06/08/25 1857 stomahesive in petrolatum (ET Mix), , Topical, 3 times per day, RENITA tGz CNP, Given at 06/18/25 0459 Images from the original note were not included. [facility] Wound Care Progress Note Rosa Myers AGE: 75 y.o. GENDER: female : 1950 Subjective: HISTORY of PRESENT ILLNESS HPI Rosa Myers is a 75 y.o. female who presents for a wound follow up. HPI: Ms. Myers is a 75 y.o. female who presents to the emergency department with chief complaint of abnormal blood counts. [facility] drawl that shows hemoglobin of 6.5. Patient has chronic renal failure, per her nursing notes receives dialysis Wednesday through Wednesday at her facility. Patient has tracheostomy in place for chronic respiratory failure, PEG tube in place. Patient is able to answer questions by nodding her head yes and no but somewhat limited history due to tracheostomy in place. Admitted for anemia and chronic renal failure. She is currently admitted to ICU. Wound Care consulted for multiple wounds - coccyx, groin, nose, feet and left leg. Patient resting in bed with RN and MD at bedside. Treatment completed and photo updated. PAST MEDICAL HISTORY Medical History[1] PAST SURGICAL HISTORY Surgical History[2] FAMILY HISTORY Family History[3] SOCIAL HISTORY Social History[4] ALLERGIES Allergies[5] MEDICATIONS Medications Ordered Prior to Encounter[6] REVIEW OF SYSTEMS Pertinent items are noted in HPI. Objective: BP (!) 128/46 Pulse 68 Temp 37 C (98.6 F) Resp 21 Ht 5' 5" (1.651 m) Wt 229 lb 0.9 oz (104 kg) SpO2 98% BMI 38.12 kg/m PHYSICAL EXAM General appearance: alert, oriented times 3, and cooperative Skin: warm and dry Pulmonary: NAD, trached on ventilator Abdomen: soft, nontender, and nondistended Extremities: warm and dry Left heel -1.0 x 1.0 x 0.0cm - thin red, dry scab noted, no drainage, jaleesa wound tissue with peeling tissue. 06/18/25 LABS CBC: Lab Results Component Value Date WBC 6.3 06/18/2025 HGB 7.6 (L) 06/18/2025 HCT 24.4 (L) 06/18/2025 MCV 85.6 06/18/2025 PLT 237 06/18/2025 BMP: Lab Results Component Value Date NA 133 (L) 06/18/2025 K 4.4 06/18/2025 CL 98 06/18/2025 CO2 24 06/18/2025 BUN 46 (H) 06/18/2025 CREATININE 3.41 (H) 06/18/2025 PT/INR: No results found for: "PROTIME", "INR" Prealbumin: No results found for: "PREALBUMIN" Albumin:No components found for: LABALBU Sed Rate:No results found for: SEDRATE Micro: No components found for: BC Assessment/Plan: Nursing staff to perform dressing change: Left heel Stage 2 pressure injury (POA): -cleanse with NS, apply skin barrier wipe, leave STAFF HOME THERAPY RN daily and PRN -continue ICU bed -Q2hr/PRN turns -glide sheets for T&R -continence checks Q1-2 Hrs/PRN Nutritional support Wound Care to follow Recommend to follow up at [facility] center after hospital discharge. Any questions or concerns please secure chat "[facility] wound/ostomy". I personally obtained the soto and critical portions of the history and physical exam. I reviewed the labs, imaging studies, and electronic medical record. I reviewed the chart documentation and discussed the patient with treatment team members. I have edited the note to reflect my clinical findings and my assessment and plan. Please note, the time of this note does not reflect the time I saw this patient today, but the time of this documentaton. Portions of this note including HPI, ROS, impression/plan, and examination may have been copied forward from admission to today as to provide important historical information essential in contributing to medical decision making. Documentation has been reviewed and edited as necessary to support clinical decision making for today's visit and to reflect my own independent evaluation of this patient. Decision making for today's visit and to reflect my own independent evaluation of this patient. [1] No past medical history on file. [2] No past surgical history on file. [3] No family history on file. [4] Social History Tobacco Use Smoking status: Never Passive exposure: Past Smokeless tobacco: Never [5] No Known Allergies [6] No current facility-administered medications on file prior to encounter. Current Outpatient Medications on File Prior to Encounter Medication Sig Dispense Refill atorvastatin (Lipitor) 40 MG tablet Take 40 mg by mouth daily. Via PEG busPIRone (Buspar) 5 MG tablet Take 5 mg by mouth 3 times daily. carvedilol (Coreg) 12.5 MG tablet Take 12.5 mg by mouth 2 times daily. Hold before dialysis FLUoxetine (PROzac) 20 MG/5ML solution Take 20 mg by mouth daily. Via PEG furosemide (Lasix) 20 MG tablet Take 20 mg by mouth daily. Via PEG, given on wed/Wednesday for weight gain insulin glargine (Lantus) 100 UNIT/ML injection Inject 25 Units under the skin 2 times daily. Insulin Lispro (Humalog) 100 UNIT/ML solution injection Inject 2-12 Units under the skin 3 times daily (with meals). Sliding scale: 150-200 = 2 units, 102-250 = 4 units, 251-300 = 6 units, 301-350 = 8 units, 351-400 = 10 units, 401-450 = 12 units midodrine (Proamatine) 10 MG tablet Take 10 mg by mouth 3 times daily. Via PEG, given M- 1hr prior to dialysis pantoprazole (ProtoNix) 20 MG EC tablet Take 20 mg by mouth every morning (before breakfast). Do not crush, chew, or split. Petrolatum ointment Apply 1 Application topically 2 times daily as needed (forehead itching). Cosigned by Miguel Barraza DO at 06/19/2025 12:02 PM EDT Images from the original note were not included. [facility] [place] [address] [place], [place] [address] Patient - Rosa Myers, Age - 75 y.o. - 1950 Room Number - [id number] Consulting - Sharyn Amaya MD Primary Care Physician - No primary care provider on file. Date of Admission - 06/01/2025 10:53 AM Hospital Day - 17 Problem List[1] Chief Complaint: Jose Maria Myers is a 75 y.o. female who pulmonary is following for VDRF Subjective/Interval History: No new overnight concerns. Denied chest pain or shortness of breath. Stable on chronic vent settings. Currently getting dialysis Vent settings: Mode A/C VC+, RR 14, Vt 450, 30% FiO2, PEEP 5 cm H2O A pertinent review of systems was performed and was otherwise non-contributory except as detailed in Subjective section above. Objective: Vitals: BP 98/50 Comment: MAP 60 Pulse 63 Temp 36.8 C (98.2 F) Resp 14 Ht 5' 5" (1.651 m) Wt 229 lb 0.9 oz (104 kg) SpO2 97% BMI 38.12 kg/m Pulse Ox: SpO2 Av.5 % Min: 96 % Max: 99 % Supplemental O2: 30% FiO2 on Vent. I/O 24HR INTAKE/OUTPUT: No intake or output data in the 24 hours ending 06/18/25 1035 Physical Exam:unchanged compared to 06/07 Physical Exam Vitals and nursing note reviewed. Constitutional: General: She is not in acute distress. Comments: Chronically ill appearing Neck: Trachea: Tracheostomy present. Cardiovascular: Rate and Rhythm: Normal rate and regular rhythm. Pulmonary: Effort: Pulmonary effort is normal. No respiratory distress. Breath sounds: No wheezing, rhonchi or rales. Comments: Chronic vent dependence Musculoskeletal: Right lower leg: No edema. Left lower leg: No edema. Skin: General: Skin is warm and dry. Coloration: Skin is not jaundiced. Findings: No lesion or rash. Neurological: Mental Status: Mental status is at baseline. Psychiatric: Mood and Affect: Mood normal. Behavior: Behavior normal. Behavior is cooperative. Medications: Allergies[2] Current Medications[3] PRN Meds[4] Labs: CBC: Recent Labs 06/16/25 0545 06/17/25 0410 06/18/25 0647 WBC 6.2 7.8 6.3 HGB 7.6* 8.4* 7.6* HCT 24.7* 26.6* 24.4* PLT 217 230 237 MCV 86.1 84.4 85.6 RDW 18.2* 17.8* 18.2* BMP: Recent Labs 06/16/25 0545 06/17/25 0410 06/18/25 0647 NA 137 135* 133* K 4.4 4.1 4.4 CL 100 99 98 CO2 27 24 24 BUN 20 33* 46* CREATININE 1.89* 2.72* 3.41* CALCIUM 8.6* 9.3 8.9 LFTs: Recent Labs 06/16/25 0545 06/17/25 0410 06/18/25 0647 AST 26 28 24 ALT 12 14 13 PROT 6.3* 6.8 6.2* ALBUMIN 2.2* 2.3* 2.1* BILITOT 0.5 0.7 0.6 ALKPHOS 127 133 122 Glucose: Recent Labs 06/16/25 0545 06/16/25 0620 06/16/25 1301 06/16/25 1720 06/16/25 2029 06/17/25 0410 06/17/25 0638 06/17/25 1222 06/17/25 1730 06/17/25 1950 06/18/25 0646 06/18/25 0647 GLUCOSE 131* -- -- -- -- 62* -- -- -- -- -- 119* POCGLU -- < > 149* 134* 138* -- 74 106* 118* 135* 123* -- < > = values in this interval not displayed. Pleural fluid 06/07/25: Lab Results Component Value Date LDHFL 91 06/07/2025 PROTEINFL 3.9 06/07/2025 FLUIDTYPE Pleural Fluid 06/07/2025 FLUIDTYPE Pleural Fluid 06/07/2025 LDH 213 06/08/2025 PROT 6.2 (L) 06/18/2025 ALBUMIN 2.1 (L) 06/18/2025 Microbiology: + C difficile Blood cultures: NGTD Dialysis catheter tip: + Serratia marcescens Sputum culture: + Serratia marcescens, Stenotrophomonas maltophilia & Pseudomonas aeruginosa Imaging/ Testing: CXR 06/08/25: IMPRESSION: Lines, tubes, and devices:Interval placement a right IJ approach central venous catheter with tip projecting over the SVC. Tracheostomy tube again projects over the trachea. Lungs and pleura:Prominence of the central pulmonary vasculature without overt pulmonary edema. Hazy bibasilar opacities likely small pleural effusions with associated atelectasis. Superimposed infectious/inflammatory process is not entirely excluded. No interval pneumothorax. Cardiomediastinal silhouette: Stable enlarged cardiac silhouette.Atherosclerotic calcifications of the aortic arch Other: Degenerative changes of the spine and acromioclavicular joints. Assessment and Plan/Recommendations: Chronic respiratory failure with hypoxia. Ventilator dependence Tracheostomy dependence Hx bilateral pleural effusions, transudate Possible PNA- polymicorbial respiratory tract infections. ESRD with pulmonary edema Anemia + C Diff S/p left thoracentesis with removal of 600 ml dacosta fluid, borderline exudate. Culture NGTD. Continue fluid removal via HD. New tunneled HD catheter placed 06/12. Management as per Nephrology (M/W/F) Sputum culture + Serratia, Stenotrophomonas and Pseudomonas. ID recommending 2 weeks of Cefepime through 06/21 and Minocycyline x 10 days. Nursing facility unable to administer antibiotics so patient will need to stay in hospital until complete. Continue DuoNeb's, HTS Respiratory status stable on vent. Continue home settings. No plans for weaning. Routine trach care & pulmonary hygiene Advance Directive: Full Code Discharge planning: Discharge back to [facility] once antibiotics completed. Case discussed with nurse and patient Questions and concerns addressed. [1] Patient Active Problem List Diagnosis Anemia Anemia, unspecified type Moderate malnutrition (CMS/HCC) (HCC) Acute metabolic encephalopathy Anxiety and depression Debility [2] No Known Allergies [3] Current Facility-Administered Medications: acetaminophen (Tylenol) tablet 650 mg, 650 mg, Oral, q6h PRN, 650 mg at 06/13/252045 OR acetaminophen (Tylenol) suppository 650 mg, 650 mg, Rectal, q6h PRN, Sharyn Amaya MD albumin human 5 % IV solution 25 g, 25 g, IntraVENous, TID PRN, Rad Acosta MD albuterol (2.5 MG/3ML) 0.083% nebulizer solution 2.5 mg, 2.5 mg, Nebulization, q6h PRN, RENITA Tyler CNP atorvastatin (Lipitor) tablet 40 mg, 40 mg, Per G Tube, Daily, Grzegorz Chatterjee MD, 40 mg at 06/18/25 08 busPIRone (Buspar) tablet 5 mg, 5 mg, Per G Tube, TID, Grzegorz Chatterjee MD, 5 mg at 06/18/25 0844 carvedilol (Coreg) tablet 3.125 mg, 3.125 mg, Per G Tube, BID DREW, Raine Etienne MD, 3.125 mg at 06/18/25 0844 cefepime (Maxipime) 1,000 mg in sodium chloride 0.9 % 50 mL IVPB, 1,000 mg, IntraVENous, q12h, Geno Waddell MD, Stopped at 06/18/25 0639 chlorhexidine (Hibiclens) 4 % solution, , Topical, Daily, Anjum Fam MD, Given at 06/17/25 1428 dextrose 5 % and sodium chloride 0.45 % bolus 500 mL, 500 mL, IntraVENous, TID PRN, Rad Acosta MD dextrose 5 % infusion, 100 mL/hr, IntraVENous, PRN, Sharyn Amaya MD, Stopped at 06/02/25 1757 dextrose 50 % solution 12.5 g, 12.5 g, IntraVENous, PRN, Sharyn Amaya MD, 12.5 g at 06/13/25 0524 epoetin jenn-epbx (Retacrit) injection 2,600 Units, 25 Units/kg, SubCUTAneous, Once per day on Wednesday, RENITA Clifford CNP, 2,600 Units at 06/18/25 0855 FLUoxetine (PROzac) capsule 20 mg, 20 mg, Per G Tube, Daily, Grzegorz Chatterjee MD, 20 mg at 06/18/25 0844 furosemide (Lasix) tablet 20 mg, 20 mg, Per G Tube, Daily, Grzegorz Chatterjee MD, 20 mg at 06/18/25 0844 glucagon (human recombinant) injection 1 mg, 1 mg, IntraMUSCular, PRN, Sharyn Amaya MD glucose oral gel 15 g, 15 g, Oral, PRN, Sharyn Amaya MD heparin injection 1,200-2,000 Units, 1,200-2,000 Units, IntraCATHeter, PRN, RENITA Clifford CNP, 1,800 Units at 06/15/25 1303 heparin injection 1,200-2,000 Units, 1,200-2,000 Units, IntraCATHeter, PRN, RENITA Clifford CNP, 1,700 Units at 06/15/25 1303 heparin injection 1,200-2,000 Units, 1,200-2,000 Units, IntraCATHeter, PRN, Yamil Newby MD heparin injection 1,200-2,000 Units, 1,200-2,000 Units, IntraCATHeter, PRN, Yamil Newby MD heparin injection 5,000 Units, 5,000 Units, SubCUTAneous, 2 times per day, Sharyn Amaya MD, 5,000 Units at 06/18/25 0844 HYDROmorphone (Dilaudid) injection 0.25 mg, 0.25 mg, IntraVENous, q4h PRN, Robert Jimenez MD insulin glargine (Lantus) injection 25 Units, 25 Units, SubCUTAneous, BID, Sharyn Amaya MD, 25 Units at 06/18/25 0855 Insulin Lispro (Humalog) injection 0-6 Units, 0-6 Units, SubCUTAneous, q6h, Grzegorz Chatterjee MD, 1 Units at 06/14/25 1202 ipratropium-albuterol (Duo-Neb) 0.5-2.5 mg/3 mL nebulizer solution 3 mL, 3 mL, Nebulization, q4h, RENITA Tyler CNP, 3 mL at 06/18/25 08 LORazepam (Ativan) tablet 0.25 mg, 0.25 mg, Per G Tube, q8h PRN, RENITA Schwartz CNP melatonin tablet 3 mg, 3 mg, Per G Tube, Nightly PRN, RENITA Schwartz CNP miconazole (Micotin) 2 % powder, , Topical, BID, RENITA Gtz CNP, Given at 06/18/25 08 midodrine (Proamatine) tablet 10 mg, 10 mg, Per G Tube, TID, Grzegorz Chatterjee MD, 10 mg at 06/18/25843 minocycline capsule 100 mg, 100 mg, Oral, BID, Kishore Wolff MD, 100 mg at 06/18/25 08 pantoprazole (ProtoNix) 40 mg in sodium chloride (PF) 0.9 % 10 mL injection, 40 mg, IntraVENous, Nightly, Grzegorz Chatterjee MD, 40 mg at 09/21/25 2025 polyethylene glycol (PEG) 3350 (Miralax) packet 17 g, 17 g, Oral, Daily PRN, Sharyn Amaya MD, 17 g at 06/15/25 1350 promethazine (Phenergan) tablet 12.5 mg, 12.5 mg, Oral, q6h PRN OR promethazine (Phenergan) injection 12.5 mg, 12.5 mg, IntraMUSCular, q6h PRN OR promethazine (Phenergan) suppository 12.5 mg, 12.5 mg, Rectal, q6h PRN, Sharyn Amaya MD sodium chloride 0.9 % infusion, 250 mL/hr, IntraVENous, PRN, Omid Orona MD sodium chloride 0.9 % infusion, 250 mL/hr, IntraVENous, PRN, Geno Waddell MD sodium chloride 0.9 % infusion, 250 mL/hr, IntraVENous, PRN, Tomy Hill MD sodium chloride 0.9% (NS) flush 10 mL, 10 mL, IntraCATHeter, q12h, Anjum Fam MD, 10 mL at 06/18/25 0845 sodium chloride 0.9% (NS) flush 10 mL, 10 mL, IntraCATHeter, PRN, Anjum Fam MD sodium chloride 3 % hypertonic nebulizer solution 4 mL, 4 mL, Nebulization, BID, Neelima Hanks APRN - METALLURGIST HELPER, 4 mL at 06/18/25 0832 stomahesive in petrolatum (ET Mix), , Topical, PRN, RENITA Gtz CNP, Given at 06/08/25 1857 stomahesive in petrolatum (ET Mix), , Topical, 3 times per day, RENITA Gtz CNP, Given at 06/18/25 0459 [4] PRN medications: acetaminophen OR acetaminophen, albumin human, albuterol, dextrose 5 % and sodium chloride 0.45 %, dextrose, dextrose, glucagon (rDNA), glucose, heparin, heparin, heparin, heparin, HYDROmorphone, LORazepam, melatonin, polyethylene glycol (PEG) 3350, promethazine OR promethazine OR promethazine, sodium chloride, sodium chloride, sodium chloride, sodium chloride 0.9%, stomahesive in petrolatum [facility] Respiratory Care Department Progress Note Spontaneous Awakening Trial Wean Screen SpO2>/=88%: Yes (06/18/25616) FiO2</=50%: Yes (06/18/25616) PEEP </=8cmH2O: Yes (06/18/25616) HR <140 BPM: Yes (06/18/25616) RR </= 35 breaths/min: Yes (06/18/25616) MAP >/= 65mmHg: Yes (06/18/25616) Arterial pH >7.30: Yes (06/18/25616) Safety Screen Spontaneous Breathing Trial (SBT - RT) : SBT Held - Chronic Ventilator Dependent (06/18/25616) Spontaneous Breathing Trial Vent Settings Vent Mode: Assist control (06/18/25502) Mandatory Type: VC+ (06/18/25502) Resp Rate (Set): 14 (06/18/25502) Vt (Set, mL): 450 mL (06/18/25502) FiO2 (%): 30 % (06/18/25502) PEEP/CPAP (cm H2O): 5 cm H20 (06/18/25502) Inspiratory Time (sec): 0.9 sec (06/18/25502) Vitals MAP (mmHg): 64 (06/18/25 0002) Heart Rate: 69 (06/18/25502) Resp: 15 (06/18/25502) SpO2: 96 % (06/18/25502) Suctioning/Secretions Secretion Amount: Scant (06/18/25502) Secretion Color: White (06/17/25843) Secretion Consistency: Thick (06/17/25843) ABG results No results for input(s): "PHART", "RDR3HLR", "PO2ART", "TKG0DAJ", "SO2ART", "R3XCPBTZ" in the last 72 hours. Does this patient meet criteria for termination of mechanical ventilation No - Chronic Vent Dependent Name of physician notified via secure chat or in person : na (NA if patient did not meet criteria) Comments: Thank you for involving Respiratory in the care of this patient, [facility] Nephrology Progress Note / 75 y.o. year old female who we are seeing in consultation for ESRD and management of HD. Follows with Dr. Loredo and an outpatient HD schedule - at [facility]. 06/06: TDC removed for suspicion of infection 06/08: Temp HD catheter placed by Icu followed by dialysis. 06/12: New TDC placed Laying bed, alert and answering questions appropriately BP slightly low during HD on Wednesday, improved with midodrine Nods head and attempts to mouth words Chronic trach to vent and PEG BP stable, on the low side No LE edema No change in PFSH All data labs/interval notes and overnight issues are reviewed Objective/ Vitals: 06/17/25 0446 06/17/25 0802 06/17/25 0846 06/17/25 1219 BP: 123/60 BP Location: Left arm Patient Position: Lying Pulse: 85 80 72 68 Resp: (!) 27 23 Temp: 36.9 C (98.4 F) TempSrc: Oral SpO2: 97% 95% 99% 99% Weight: Height: 24HR INTAKE/OUTPUT: No intake or output data in the 24 hours ending 06/17/25 1435 Wt Readings from Last 3 Encounters: 06/11/25 104 kg (229 lb 0.9 oz) Constitutional: Awake, obese HEENT: no pallor/cyanosis or icterus Cardiovascular: S1, S2 without m/r/g Respiratory: CTA, B/l equal air entry trach present Abdomen: +bs, soft, Non tender non distended Ext: No LE edema No CVA tenderness Neurologic Alert and oriented; answers questions Psychiatric Calm and cooperative normal modd and affect Neck: supple, no thyroid enlargement, no JVD elevation Skin: warm, moist, no rashes Tunneled HD catheter RIJ. Medications: Scheduled Meds[1] Continuous Infusions:Continuous Meds[2] PRN Meds:PRN Meds[3] Data/ Recent Labs 06/15/2522406/16/25 0545 06/17/25 0410 WBC 6.1 6.2 7.8 HGB 7.9* 7.6* 8.4* HCT 25.7* 24.7* 26.6* MCV 85.4 86.1 84.4 PLT 233 217 230 Recent Labs 06/15/2522406/16/25 0545 06/17/25 0410 NA 134* 137 135* K 3.4* 4.4 4.1 CL 97* 100 99 CO2 25 27 24 GLUCOSE 80* 131* 62* MG 1.8 -- -- BUN 31* 20 33* CREATININE 2.80* 1.89* 2.72* Albumin: No components found for: "LABALBU" Calcium: Lab Results Component Value Date CALCIUM 9.3 06/17/2025 Ionized Calcium: No components found for: "IONCA" Magnesium: Lab Results Component Value Date MG 1.8 06/15/2025 Phosphorus: No results found for: "PHOS" Assessment/ y.o. female with ESRD N18.6 C. Difficile A04.72 Anemia D63.1 Volume overload E87.70 Hyponatremia E87.1 Chronic respiratory failure J96.10 Diabetes E11.22 Dependence on hemodialysis RECOMMENDATIONS: - HD schedule M- at [facility], follows with Dr. Loredo. Tolerated HD Wednesday 600 L removed, BP improved with midodrine. Will maintain MWF schedule while inpatient -Tunneled line removed last week for infection. New TDC placed on 06/12 in IR after blood cultures negative. - Anemia -Transfuse to keep Hgb > 7.0 ESRD hgb goal > 10. Iron studies reviewed, c/w DORIS therapy - Okay for Midodrine 10 mg 1 hour prior to iHD for BP support during fluid removal. - Slight hyponatremia noted today, will improve with HD tomorrow, continue to monitor electrolytes - Avoid nephrotoxins and IV contrast dye - Dose all meds per GFR < 15 - We will follow closely -ID following for management of antibiotics, patient will need to stay inpatient until 06/21 for management of IV antibiotics [1] atorvastatin, 40 mg, Per G Tube, Daily busPIRone, 5 mg, Per G Tube, TID carvedilol, 3.125 mg, Per G Tube, BID WC cefepime, 1,000 mg, IntraVENous, q12h chlorhexidine, , Topical, Daily epoetin alpha-epbx, 25 Units/kg, SubCUTAneous, Once per day on Wednesday FLUoxetine, 20 mg, Per G Tube, Daily furosemide, 20 mg, Per G Tube, Daily heparin, 5,000 Units, SubCUTAneous, 2 times per day insulin glargine, 25 Units, SubCUTAneous, BID insulin lispro, 0-6 Units, SubCUTAneous, q6h ipratropium-albuterol, 3 mL, Nebulization, q4h miconazole, , Topical, BID midodrine, 10 mg, Per G Tube, TID minocycline, 100 mg, Oral, BID pantoprazole (ProtoNix) 40 mg in sodium chloride (PF) 0.9 % 10 mL injection, 40 mg, IntraVENous, Nightly sodium chloride 0.9%, 10 mL, IntraCATHeter, q12h sodium chloride, 4 mL, Nebulization, BID stomahesive in petrolatum, , Topical, 3 times per day [2] [3] PRN medications: acetaminophen OR acetaminophen, albumin human, albuterol, dextrose 5 % and sodium chloride 0.45 %, dextrose, dextrose, glucagon (rDNA), glucose, heparin, heparin, heparin, heparin, HYDROmorphone, LORazepam, melatonin, polyethylene glycol (PEG) 3350, promethazine OR promethazine OR promethazine, sodium chloride, sodium chloride, sodium chloride, sodium chloride 0.9%, stomahesive in petrolatum Cosigned by Lynn Powell MD at 06/17/2025 4:04 PM EDT Associated attestation - Lynn Powell MD - 06/17/2025 4:04 PM EDT Notes reviewed and plan discussed with the FULL STACK DEVELOPER. Agree with above note except Any variance is noted below. Lynn Powell MD [facility] [phone] [facility] Hospitalist Progress note [phone]: Please page wa ([phone]) for patient care issues. [phone]: Please page [facility] night Hospitalist for any issues. Subjective: Admit Date: 06/01/2025 PCP: No primary care provider on file. Room#: 222-04/222-04 José Mgiuel Myers is a 75 y.o. female who presents with Anemia Interval History: Weak. Tolerating tube feeds. No vent issues. No cp, sob, cough, n/v, f/c. Discussed with RYNE Hernandez, separately. Diet, tube feeding no tray PEG; Nepro w/CARB Steady; Continuous; No; 40; 40 24HR INTAKE/OUTPUT: Intake/Output Summary (Last 24 hours) at 06/17/2025 0756 Last data filed at 06/16/2025 0852 Gross per 24 hour Intake 60 ml Output -- Net 60 ml LABS: CBC: Recent Labs 06/15/2522406/16/25 0545 06/17/25 0410 WBC 6.1 6.2 7.8 RBC 3.01* 2.87* 3.15* HGB 7.9* 7.6* 8.4* HCT 25.7* 24.7* 26.6* MCV 85.4 86.1 84.4 RDW 17.7* 18.2* 17.8* PLT 233 217 230 BMP: Recent Labs 06/15/2522406/16/25 0545 06/17/25 0410 NA 134* 137 135* K 3.4* 4.4 4.1 CL 97* 100 99 CO2 25 27 24 BUN 31* 20 33* CREATININE 2.80* 1.89* 2.72* GLUCOSE 80* 131* 62* CALCIUM 8.8 8.6* 9.3 ANIONGAP 12 10 12 LIVER PROFILE: Recent Labs 06/15/2506/16/25 0545 06/17/25 0410 AST 26 26 28 ALT 10 12 14 BILITOT 0.7 0.5 0.7 ALKPHOS 129 127 133 PROT 6.4 6.3* 6.8 PT/INR: No results for input(s): "PROTIME", "INR" in the last 72 hours. CARDIAC ENZYMES: No results for input(s): "TROPONINI" in the last 72 hours. Procalcitonin: No results found for: "PROCAL" @RISRSLTSPECIALTY@ Objective: Vitals: BP 151/59 (BP Location: Left arm, Patient Position: Lying) Pulse 85 Temp 36.8 C (98.2 F) (Oral) Resp (!) 27 Ht 5' 5" (1.651 m) Wt 229 lb 0.9 oz (104 kg) SpO2 97% BMI 38.12 kg/m Pulse Ox: SpO2 Av.4 % Min: 91 % Max: 100 % Supplemental O2: 06/17/2025 General appearance: No apparent distress, appears stated age, AAOX3 Oral: Tongue is semi-moist Cardiovascular: S1/S2 heard, RRR Respiratory: Clear to auscultation bilaterally, tracheostomy site red and inflamed Abdomen: Soft, non-tender, non-distended bowel sounds positive Musculoskeletal: Bilateral venous stasis changes Skin: Tunneled line removed, dressing in place, no redness or erythema Medications: Continuous Meds[1] Scheduled Meds[2] Assessment Altered mental status and hallucinations resolved Acute on chronic anemia Chronic bilateral pleural effusions Pneumonia Chronic respiratory failure tracheostomy dependent Concern for tunneled line infection C. difficile infection Hypokalemia Pressure ulcers present on admission ESRD on HD chronic heart failure Severe malnutrition GERD Anxiety Depression Type 2 diabetes Chronic candidiasis Neuropathy Plan Continue present tx, continue IV and PO antibiotics, ID and Pulmonology and Wound Care and Nephrology and Geriatrics following, continue HD, POCT, SS insulin, continue tube feeds, follow up labs, discharge planning, see orders -am labs, replace lytes prn -increase activity Diet Diet, tube feeding no tray PEG; Nepro w/CARB Steady; Continuous; No; 40; 40 DVT Prophylaxis [] Lovenox, [x] Heparin, [] SCDs, [] Ambulation [] Already on Anticoagulation GI Prophylaxis [] PPI, [] H2 Herb, [] Carafate, [] Diet/Tube Feeds Code Status Full Code MDM [] Low, [] Moderate,[x] High Patient's risk as above Anticipated Discharge - Date -06/21 - Location - Skilled Facility - Pending the following -completion of antibiotics and OK with facility Total time spent (which include face to face and non face to face encounters) : 45 minutes Toxic drug monitoring/narrow therapeutic index drug monitoring : # Drug name : SS insulin and heparin # Route administered : subcutaneous and subcutaneous # Method of monitoring : Q6hr BG/daily BMP/hypoglycemia protocol and daily CBC No emergency contact information on file. Advance Directive: Full Code Discharge planning: TBD Robert Jimenez MD Division of Hospitalist Medicine Inpatient Medical Services/[facility] [1] [2] atorvastatin, 40 mg, Per G Tube, Daily busPIRone, 5 mg, Per G Tube, TID carvedilol, 3.125 mg, Per G Tube, BID WC cefepime, 1,000 mg, IntraVENous, q12h chlorhexidine, , Topical, Daily epoetin alpha-epbx, 25 Units/kg, SubCUTAneous, Once per day on Wednesday FLUoxetine, 20 mg, Per G Tube, Daily furosemide, 20 mg, Per G Tube, Daily heparin, 5,000 Units, SubCUTAneous, 2 times per day insulin glargine, 25 Units, SubCUTAneous, BID insulin lispro, 0-6 Units, SubCUTAneous, q6h ipratropium-albuterol, 3 mL, Nebulization, q4h miconazole, , Topical, BID midodrine, 10 mg, Per G Tube, TID minocycline, 100 mg, Oral, BID pantoprazole (ProtoNix) 40 mg in sodium chloride (PF) 0.9 % 10 mL injection, 40 mg, IntraVENous, Nightly sodium chloride 0.9%, 10 mL, IntraCATHeter, q12h sodium chloride, 4 mL, Nebulization, BID stomahesive in petrolatum, , Topical, 3 times per day [facility] Respiratory Care Department Progress Note Spontaneous Awakening Trial Wean Screen SpO2>/=88%: Yes (06/17/25600) FiO2</=50%: Yes (06/17/25600) PEEP </=8cmH2O: Yes (06/17/25600) HR <140 BPM: Yes (06/17/25600) RR </= 35 breaths/min: Yes (06/17/25600) MAP >/= 65mmHg: Yes (06/17/25600) Arterial pH >7.30: Yes (06/17/25600) Safety Screen Spontaneous Breathing Trial (SBT - RT) : SBT Held - Chronic Ventilator Dependent (06/17/25600) Spontaneous Breathing Trial Vent Settings Vent Mode: Assist control (06/17/25445) Mandatory Type: VC+ (06/17/25445) Resp Rate (Set): 14 (06/17/25445) Vt (Set, mL): 450 mL (06/17/25445) FiO2 (%): 30 % (06/17/25445) PEEP/CPAP (cm H2O): 5 cm H20 (06/17/25445) Inspiratory Time (sec): 0.9 sec (06/17/25445) Vitals MAP (mmHg): 86 (06/17/25 0002) Heart Rate: 85 (06/17/25445) Resp: (!) 27 (06/17/25445) SpO2: 97 % (06/17/25445) Suctioning/Secretions Secretion Amount: Moderate (06/17/25445) Secretion Color: White (06/17/25445) Secretion Consistency: Thick (06/17/25445) ABG results No results for input(s): "PHART", "ZPI7UME", "PO2ART", "HTZ5AHH", "SO2ART", "K1GQIYRL" in the last 72 hours. Does this patient meet criteria for termination of mechanical ventilation No - Chronic Vent Dependent Name of physician notified via secure chat or in person : na (NA if patient did not meet criteria) Comments: Thank you for involving Respiratory in the care of this patient, [facility] Nephrology Progress Note Subjective/ 75 y.o. year old female who we are seeing in consultation for ESRD and management of HD. Follows with Dr. Loredo and an outpatient HD schedule M- at [facility]. 06/06: TDC removed for suspicion of infection 06/08: Temp HD catheter placed by Icu followed by dialysis. 06/12: New TDC placed Laying bed, alert and answering questions appropriately BP slightly low during HD yesterday, improved with midodrine Nods head and attempts to mouth words Chronic trach to vent and PEG BP stable, on the low side No LE edema No change in PFSH All data labs/interval notes and overnight issues are reviewed Objective/ Vitals: 06/16/25 0852 06/16/25 0951 06/16/25 0953 06/16/25 1248 BP: BP Location: Patient Position: Pulse: 70 95 (!) 121 Resp: Temp: 36.9 C (98.4 F) TempSrc: Oral SpO2: 100% 91% 100% Weight: Height: 24HR INTAKE/OUTPUT: Intake/Output Summary (Last 24 hours) at 06/16/2025 1251 Last data filed at 06/15/2025 1806 Gross per 24 hour Intake 1736 ml Output -- Net 1736 ml Wt Readings from Last 3 Encounters: 06/11/25 104 kg (229 lb 0.9 oz) Constitutional: Awake, obese HEENT: no pallor/cyanosis or icterus Cardiovascular: S1, S2 without m/r/g Respiratory: CTA, B/l equal air entry trach present Abdomen: +bs, soft, Non tender non distended Ext: No LE edema No CVA tenderness Neurologic Alert and oriented; answers questions Psychiatric Calm and cooperative normal modd and affect Neck: supple, no thyroid enlargement, no JVD elevation Skin: warm, moist, no rashes Tunneled HD catheter RIJ. Medications: Scheduled Meds[1] Continuous Infusions:Continuous Meds[2] PRN Meds:PRN Meds[3] Data/ Recent Labs 06/14/25 0402 06/15/25 0225 06/16/25 0545 WBC 5.6 6.1 6.2 HGB 8.5* 7.9* 7.6* HCT 27.2* 25.7* 24.7* MCV 84.7 85.4 86.1 PLT 222 233 217 Recent Labs 06/14/25 0402 06/15/25 0225 06/16/25 0545 NA 138 134* 137 K 3.5 3.4* 4.4 CL 99 97* 100 CO2 28 25 27 GLUCOSE 100 80* 131* MG 1.9 1.8 -- BUN 19 31* 20 CREATININE 1.93* 2.80* 1.89* Albumin: No components found for: "LABALBU" Calcium: Lab Results Component Value Date CALCIUM 8.6 (L) 06/16/2025 Ionized Calcium: No components found for: "IONCA" Magnesium: Lab Results Component Value Date MG 1.8 06/15/2025 Phosphorus: No results found for: "PHOS" y.o. female with ESRD N18.6 C. Difficile A04.72 Anemia D63.1 Volume overload E87.70 Hyponatremia E87.1 Chronic respiratory failure J96.10 Diabetes E11.22 Dependence on hemodialysis RECOMMENDATIONS: - [facility], follows with Dr. Loredo. Tolerated HD yesterday, 600 L removed. Will maintain MWF schedule while inpatient -Tunneled line removed last week for infection. New TDC placed on 06/12 in IR after blood cultures negative. - Anemia -Transfuse to keep Hgb > 7.0 ESRD hgb goal > 10. Iron studies reviewed, c/w DORIS therapy - Okay for Midodrine 10 mg 1 hour prior to iHD for BP support during fluid removal. - Electrolytes improve with dialysis, continue to monitor trends - Avoid nephrotoxins and IV contrast dye - Dose all meds per GFR < 15 - We will follow closely -ID following for management of antibiotics, patient will need to stay inpatient until 06/21 for management of IV antibiotics - D/w primary and dialysis team [1] atorvastatin, 40 mg, Per G Tube, Daily busPIRone, 5 mg, Per G Tube, TID carvedilol, 3.125 mg, Per G Tube, BID WC cefepime, 1,000 mg, IntraVENous, q12h chlorhexidine, , Topical, Daily epoetin alpha-epbx, 25 Units/kg, SubCUTAneous, Once per day on Wednesday FLUoxetine, 20 mg, Per G Tube, Daily furosemide, 20 mg, Per G Tube, Daily heparin, 5,000 Units, SubCUTAneous, 2 times per day insulin glargine, 25 Units, SubCUTAneous, BID insulin lispro, 0-6 Units, SubCUTAneous, q6h ipratropium-albuterol, 3 mL, Nebulization, q4h miconazole, , Topical, BID midodrine, 10 mg, Per G Tube, TID minocycline, 100 mg, Oral, BID pantoprazole (ProtoNix) 40 mg in sodium chloride (PF) 0.9 % 10 mL injection, 40 mg, IntraVENous, Nightly sodium chloride 0.9%, 10 mL, IntraCATHeter, q12h sodium chloride, 4 mL, Nebulization, BID stomahesive in petrolatum, , Topical, 3 times per day [2] [3] PRN medications: acetaminophen OR acetaminophen, albumin human, albuterol, dextrose 5 % and sodium chloride 0.45 %, dextrose, dextrose, glucagon (rDNA), glucose, heparin, heparin, heparin, heparin, HYDROmorphone, LORazepam, melatonin, polyethylene glycol (PEG) 3350, promethazine OR promethazine OR promethazine, sodium chloride, sodium chloride, sodium chloride, sodium chloride 0.9%, stomahesive in petrolatum Cosigned by Lynn Powell MD at 06/16/2025 1:55 PM EDT Associated attestation - Lynn Powell MD - 06/16/2025 1:55 PM EDT Notes reviewed and plan discussed with the FULL STACK DEVELOPER. Agree with above note except Any variance is noted below. Lynn Powell MD [facility] [phone] [facility] Hospitalist Progress note [phone]: Please page me [phone]) for patient care issues. [phone]: Please page [facility] Hospitalist for any issues. Subjective: Admit Date: 06/01/2025 PCP: No primary care provider on file. Room#: 222-04/222-04 José Miguel Myers is a 75 y.o. female who presents with Anemia Interval History: No cp, sob, cough, n/v, f/c. Tolerating tube feeds. Weak. No new issues overnight. Discussed with RYNE Hernandez, separately. Diet, tube feeding no tray PEG; Nepro w/CARB Steady; Continuous; No; 40; 40 24HR INTAKE/OUTPUT: Intake/Output Summary (Last 24 hours) at 06/16/2025 0758 Last data filed at 06/15/2025 1806 Gross per 24 hour Intake 1736 ml Output -- Net 1736 ml LABS: CBC: Recent Labs 06/14/2540106/15/2522406/16/25 0545 WBC 5.6 6.1 6.2 RBC 3.21* 3.01* 2.87* HGB 8.5* 7.9* 7.6* HCT 27.2* 25.7* 24.7* MCV 84.7 85.4 86.1 RDW 18.0* 17.7* 18.2* PLT 222 233 217 BMP: Recent Labs 06/14/25 0402 06/15/2522406/16/25 0545 NA 138 134* 137 K 3.5 3.4* 4.4 CL 99 97* 100 CO2 28 25 27 BUN 19 31* 20 CREATININE 1.93* 2.80* 1.89* GLUCOSE 100 80* 131* CALCIUM 9.0 8.8 8.6* ANIONGAP 11 12 10 LIVER PROFILE: Recent Labs 06/14/25 0402 06/15/255 06/16/25 0545 AST 27 26 26 ALT 16 10 12 BILITOT 0.6 0.7 0.5 ALKPHOS 135 129 127 PROT 6.7 6.4 6.3* PT/INR: No results for input(s): "PROTIME", "INR" in the last 72 hours. CARDIAC ENZYMES: No results for input(s): "TROPONINI" in the last 72 hours. Procalcitonin: No results found for: "PROCAL" @RISRSLTSPECIALTY@ Objective: Vitals: BP 110/50 (BP Location: Left arm, Patient Position: Lying) Pulse 67 Temp 36.8 C (98.3 F) (Oral) Resp 15 Ht 5' 5" (1.651 m) Wt 229 lb 0.9 oz (104 kg) SpO2 98% BMI 38.12 kg/m Pulse Ox: SpO2 Av.4 % Min: 83 % Max: 100 % Supplemental O2: 06/16/2025 General appearance: No apparent distress, appears stated age, AAOX3 Oral: Tongue is semi-moist Cardiovascular: S1/S2 heard, RRR Respiratory: Clear to auscultation bilaterally, tracheostomy site red and inflamed Abdomen: Soft, non-tender, non-distended bowel sounds positive Musculoskeletal: Bilateral venous stasis changes Skin: Tunneled line removed, dressing in place, no redness or erythema Medications: Continuous Meds[1] Scheduled Meds[2] Assessment Altered mental status and hallucinations resolved Acute on chronic anemia Chronic bilateral pleural effusions Pneumonia Chronic respiratory failure tracheostomy dependent Concern for tunneled line infection C. difficile infection Hypokalemia Pressure ulcers present on admission ESRD on HD chronic heart failure Severe malnutrition GERD Anxiety Depression Type 2 diabetes Chronic candidiasis Neuropathy Plan Continue present tx, continue IV and PO antibiotics, ID and Pulmonology and Wound Care and Nephrology and Geriatrics following, replace K, continue HD, POCT, SS insulin, continue tube feeds, follow up labs, discharge planning, see orders -am labs, replace lytes prn -increase activity Diet Diet, tube feeding no tray PEG; Nepro w/CARB Steady; Continuous; No; 40; 40 DVT Prophylaxis [] Lovenox, [x] Heparin, [] SCDs, [] Ambulation [] Already on Anticoagulation GI Prophylaxis [] PPI, [] H2 Herb, [] Carafate, [] Diet/Tube Feeds Code Status Full Code MDM [] Low, [] Moderate,[x] High Patient's risk as above Anticipated Discharge - Date -06/21 - Location - Skilled Facility - Pending the following -completion of antibiotics and OK with facility Total time spent (which include face to face and non face to face encounters) : 44 minutes Toxic drug monitoring/narrow therapeutic index drug monitoring : # Drug name : SS insulin and heparin # Route administered : subcutaneous and subcutaneous # Method of monitoring : Q6hr BG/daily BMP/hypoglycemia protocol and daily CBC No emergency contact information on file. Advance Directive: Full Code Discharge planning: TBD Robert Jimenez MD Division of Hospitalist Medicine Inpatient Medical Services/[facility] [1] [2] atorvastatin, 40 mg, Per G Tube, Daily busPIRone, 5 mg, Per G Tube, TID carvedilol, 3.125 mg, Per G Tube, BID WC cefepime, 1,000 mg, IntraVENous, q12h chlorhexidine, , Topical, Daily epoetin alpha-epbx, 25 Units/kg, SubCUTAneous, Once per day on Wednesday FLUoxetine, 20 mg, Per G Tube, Daily furosemide, 20 mg, Per G Tube, Daily heparin, 5,000 Units, SubCUTAneous, 2 times per day insulin glargine, 25 Units, SubCUTAneous, BID insulin lispro, 0-6 Units, SubCUTAneous, q6h ipratropium-albuterol, 3 mL, Nebulization, q4h miconazole, , Topical, BID midodrine, 10 mg, Per G Tube, TID minocycline, 100 mg, Oral, BID pantoprazole (ProtoNix) 40 mg in sodium chloride (PF) 0.9 % 10 mL injection, 40 mg, IntraVENous, Nightly sodium chloride 0.9%, 10 mL, IntraCATHeter, q12h sodium chloride, 4 mL, Nebulization, BID stomahesive in petrolatum, , Topical, 3 times per day [facility] Respiratory Care Department Progress Note Spontaneous Awakening Trial Wean Screen SpO2>/=88%: Yes (06/16/25320) FiO2</=50%: Yes (06/16/25320) PEEP </=8cmH2O: Yes (06/16/25320) HR <140 BPM: Yes (06/16/25320) RR </= 35 breaths/min: Yes (06/16/25320) MAP >/= 65mmHg: Yes (06/16/25320) Arterial pH >7.30: Yes (06/16/25320) Safety Screen Spontaneous Breathing Trial (SBT - RT) : SBT Held - Chronic Ventilator Dependent (06/16/25320) Spontaneous Breathing Trial Vent Settings Vent Mode: Assist control (06/16/25320) Mandatory Type: VC+ (06/16/25320) Resp Rate (Set): 14 (06/16/25320) Vt (Set, mL): 450 mL (06/16/25320) FiO2 (%): 30 % (06/16/25320) PEEP/CPAP (cm H2O): 5 cm H20 (06/16/25320) Inspiratory Time (sec): 0.9 sec (06/16/25320) Vitals MAP (mmHg): 69 (06/15/252031) Heart Rate: 67 (06/16/25320) Resp: 15 (06/16/25320) SpO2: 98 % (06/16/25320) Suctioning/Secretions Secretion Amount: Copious (06/16/25320) Secretion Color: Clear (06/16/25320) Secretion Consistency: Thick (06/16/25320) ABG results No results for input(s): "PHART", "IRF0QMS", "PO2ART", "ALN2YHK", "SO2ART", "I8XIWSWR" in the last 72 hours. Does this patient meet criteria for termination of mechanical ventilation No - Chronic Vent Dependent Name of physician notified via secure chat or in person : N/A (NA if patient did not meet criteria) Comments: Thank you for involving Respiratory in the care of this patient, Nutrition Assessment Type and Reason for Visit: Reassess Nutrition Recommendations/Plan: EN remains tolerated at goal: Nepro Carb Steady @40 mL/hr Provides: 1699 kcal, 78g protein, and 698 ml free water (30 kcal, 1.4g protein per kg IBW 57kg) Please obtain weekly candelaria weights for most accurate anthropometric data and calculation of macronutrient and fluid needs RDN to continue to monitor weekly: fluid accumulation, weight, skin integrity, trends in lab values, tolerance of EN, improvement in diarrhea and clinical status, discharge planning. Malnutrition Assessment: Malnutrition Status: Moderate malnutrition Context: Chronic Illness Findings of the 6 clinical characteristics of malnutrition: Energy Intake: No significant decrease in energy intake (EN meeting patinet needs at [facility] and) Weight Loss: Mild weight loss (specify amount and time period) (-6.6% weight loss over six months per EMR) Body Fat Loss: Mild body fat loss Buccal region, Orbital Muscle Mass Loss: Mild muscle mass loss Clavicles (pectoralis & deltoids), Temples (temporalis), Thigh (quadraceps) Fluid Accumulation: Severe Extremities Boom Supervisor Strength: Normal photo mask cleaner strength Nutrition Assessment: 75 year old woman who remains admitted to [facility] ICU (for vent support, being followed by IMS) following routine blood draw showing anemia at [facility]. +2 u PRBC since admit. Nephrology consulted and supporting for ESRD and management on inpatient HD. TDC was removed on 06/06 due to infection, +new TDC placed on 06/12. Continues a MWF HD schedule while admitted, -2000 mL removed and well tolerated on 06/13 (M-F schedule at [facility]). Pulmonology supporting, +trach to vent. ID consulted and supporting for PNA- Pseudomonas aeruginosa, Serratia marcescens, and stenotrophomonas maltophilia; CDAD, and Serratia marcescens of former TDC. 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 Remains admitted to [facility] through 06/21 for IV antibiotics- as facility cannot accept back. Sitting up in bed with HD running at time of re-assessment. EN continues to goal, denies: pain, nausea, GI distress. Estimated Daily Nutrient Needs: Energy Requirements Based On: Kcal/kg Weight Used for Energy Requirements: [place] Weight for Energy Calculation (kg): 57 kg Total Energy Requirements (kcals/day): 5731-9280 (25-30 kcal/kg IBW) Weight Used for Protein Requirements: [place] Weight in Kg Used for Protein Requirements: 57 kg Estimated Total Protein (g/day): 68-97 (1.2-1.7 g protein/kg IBW) Estimated Daily Total Fluid (ml/day): per MD Nutrition Related Findings: A+Ox2, was hallucinating and agitated morning of 06/14. No edema noted. Tyler score=12. +Stage II PU to left heel. EN to goal. Meds: Lipitor, buspar, coreg, Lasix, insulin, PPI. Maxipime and minocycline. Labs: BGL(125->126->161->100->106->100 ->98), Hgb(8.5->7.9). Na+(134), K+(3.4), BUN(31), Creatinine(2.80), Wound Type: Stage II, Pressure Injury (Stage II PU to left heel. Resolved wounds to: forehead, nose, abdominal skin folds, thigh and sacral areas.) Current Nutrition Therapies: Diet, tube feeding no tray PEG; Nepro w/CARB Steady; Continuous; No; 40; 40 Current Oral Intake Average Meal Intake: NPO Average Supplements Intake: NPO Additional Calorie Sources Additional Calorie Sources: on tube feeds Enteral Nutrition Feeding Route: PEG EN Formula: Nepro w/CARBSTEADY EN Schedule: Continuous EN Feeding Regimen: Nepro Carb Steady @40 mL/hr Additives/Modulars: None Water Flushes: 100 mL Q4H Current EN & Flush Order Provides: Nepro Carb Steady @40 mL/hr provides: 1699 kcal, 78g protein, and 698 ml free water (30 kcal, 1.4g protein per kg IBW 57kg) Goal EN & Flush Order Provides: Nepro Carb Steady @40 mL/hr provides: 1699 kcal, 78g protein, and 698 ml free water (30 kcal, 1.4g protein per kg IBW 57kg) Anthropometric Measures: Height: 165.1 cm (5' 5") Current Body Weight: 104 kg (229 lb 0.9 oz) Weight Source: Bed Scale Admission Body Weight: 103 kg (226 lb) (05/25 @ SNF) Usual Body Weight: 103 kg (226 lb) (per EMR--> 242# 11/27/24; 220# (bed) 03/07/25; 209.7# 04/02/25; 226# 05/25/25) % Weight Change (Calculated): 1.4 [place] Body Weight (lbs) (Calculated): 125 lbs [place] Body Weight (Kg) (Calculated): 57 kg % [place] Body Weight (Calculated): 183.2 % BMI (kg/m2) (Calculated): 38.1 Weight Adjustment For: No Adjustment BMI Categories: Obese Class 2 (BMI 35.0 -39.9) Nutrition Diagnosis: Moderate malnutrition, In context of chronic illness related to increase demand for energy/nutrients as evidenced by mild loss of subcutaneous fat, mild muscle loss Altered GI function related to altered GI structure, acute injury/trauma (Chronic trach/PEG; +C-diff) as evidenced by nutrition support - enteral nutrition, diarrhea Nutrition Interventions: Nutrition Education/Counseling: Education not indicated Coordination of Nutrition Care: Continue to monitor while inpatient Plan of Care discussed with: RN Goals: Previous Goal Met: Progressing toward Goal(s) Goals: Meet at least 75% of estimated needs, Tolerate nutrition support at goal rate, by next RD assessment, other (specify) Specify Other Goals: Diarrhea will improve/resolve Nutrition Monitoring and Evaluation: Behavioral-Environmental Outcomes: None Identified Food/Nutrient Intake Outcomes: Enteral Nutrition Intake/Tolerance Physical Signs/Symptoms Outcomes: Biochemical Data, GI Status, Diarrhea, Hemodynamic Status, Weight, Skin, Fluid Status or Edema, Nutrition Focused Physical Findings Discharge Planning: Enteral Nutrition Raquel Brady RDN, LDN, Contact: *[phone] [facility] Hospitalist Progress note [phone]: Please page me ([phone]) for patient care issues. [phone]: Please page [facility] Hospitalist for any issues. Subjective: Admit Date: 06/01/2025 PCP: No primary care provider on file. Room#: 222-04/222-04 José Miguel Myers is a 75 y.o. female who presents with Anemia Interval History: Mental status much improved today. No cp, sob, cough, n/v, f/c. Tolerating tube feeds. Discussed with RYNE Schultz, at bedside. Diet, tube feeding no tray PEG; Nepro w/CARB Steady; Continuous; No; 40; 40 24HR INTAKE/OUTPUT: Intake/Output Summary (Last 24 hours) at 06/15/2025 1301 Last data filed at 06/14/2025 1718 Gross per 24 hour Intake 832 ml Output -- Net 832 ml LABS: CBC: Recent Labs 06/13/25 0433 06/14/25 0402 06/15/25224 WBC 7.2 5.6 6.1 RBC 3.19* 3.21* 3.01* HGB 8.4* 8.5* 7.9* HCT 26.6* 27.2* 25.7* MCV 83.4 84.7 85.4 RDW 17.8* 18.0* 17.7* PLT 235 222 233 BMP: Recent Labs 06/13/2543206/14/2540106/15/25224 NA 134* 138 134* K 3.5 3.5 3.4* CL 97* 99 97* CO2 25 28 25 BUN 39* 19 31* CREATININE 3.37* 1.93* 2.80* GLUCOSE 56* 100 80* CALCIUM 9.3 9.0 8.8 ANIONGAP 12 11 12 LIVER PROFILE: Recent Labs 06/13/2543206/14/2540106/15/25224 AST 22 27 26 ALT 12 16 10 BILITOT 0.8 0.6 0.7 ALKPHOS 127 135 129 PROT 6.8 6.7 6.4 PT/INR: No results for input(s): "PROTIME", "INR" in the last 72 hours. CARDIAC ENZYMES: No results for input(s): "TROPONINI" in the last 72 hours. Procalcitonin: No results found for: "PROCAL" @RISRSLTSPECIALTY@ Objective: Vitals: BP 110/55 Pulse 68 Temp 36.8 C (98.3 F) (Oral) Resp 15 Ht 5' 5" (1.651 m) Wt 229 lb 0.9 oz (104 kg) SpO2 100% BMI 38.12 kg/m Pulse Ox: SpO2 Av % Min: 100 % Max: 100 % Supplemental O2: 06/15/2025 General appearance: No apparent distress, appears stated age, AAOX3 Oral: Tongue is semi-moist Cardiovascular: S1/S2 heard, RRR Respiratory: Clear to auscultation bilaterally, tracheostomy site red and inflamed Abdomen: Soft, non-tender, non-distended bowel sounds positive Musculoskeletal: Bilateral venous stasis changes Skin: Tunneled line removed, dressing in place, no redness or erythema Medications: Continuous Meds[1] Scheduled Meds[2] Assessment Altered mental status and hallucinations Acute on chronic anemia Chronic bilateral pleural effusions Pneumonia Chronic respiratory failure tracheostomy dependent Concern for tunneled line infection C. difficile infection Hypokalemia Pressure ulcers present on admission ESRD on HD chronic heart failure Severe malnutrition GERD Anxiety Depression Type 2 diabetes Chronic candidiasis Neuropathy Plan Continue present tx, continue IV and PO antibiotics, ID and Pulmonology and Wound Care and Nephrology and Geriatrics following, replace K, continue HD, POCT, SS insulin, continue tube feeds, follow up labs, discharge planning, see orders -am labs, replace lytes prn -increase activity Diet Diet, tube feeding no tray PEG; Nepro w/CARB Steady; Continuous; No; 40; 40 DVT Prophylaxis [] Lovenox, [x] Heparin, [] SCDs, [] Ambulation [] Already on Anticoagulation GI Prophylaxis [] PPI, [] H2 Herb, [] Carafate, [] Diet/Tube Feeds Code Status Full Code MDM [] Low, [] Moderate,[x] High Patient's risk as above Anticipated Discharge - Date -06/21 - Location - Skilled Facility - Pending the following -completion of antibiotics and OK with facility Total time spent (which include face to face and non face to face encounters) : 45 minutes Toxic drug monitoring/narrow therapeutic index drug monitoring : # Drug name : SS insulin and heparin # Route administered : subcutaneous and subcutaneous # Method of monitoring : Q6hr BG/daily BMP/hypoglycemia protocol and daily CBC No emergency contact information on file. Advance Directive: Full Code Discharge planning: TBD Robert Jimenez MD Division of Hospitalist Medicine Inpatient Medical Services/[facility] [1] [2] atorvastatin, 40 mg, Per G Tube, Daily busPIRone, 5 mg, Per G Tube, TID carvedilol, 3.125 mg, Per G Tube, BID WC cefepime, 1,000 mg, IntraVENous, q12h chlorhexidine, , Topical, Daily epoetin alpha-epbx, 25 Units/kg, SubCUTAneous, Once per day on Wednesday FLUoxetine, 20 mg, Per G Tube, Daily furosemide, 20 mg, Per G Tube, Daily heparin, 5,000 Units, SubCUTAneous, 2 times per day insulin glargine, 25 Units, SubCUTAneous, BID insulin lispro, 0-6 Units, SubCUTAneous, q6h ipratropium-albuterol, 3 mL, Nebulization, q4h miconazole, , Topical, BID midodrine, 10 mg, Per G Tube, TID minocycline, 100 mg, Oral, BID pantoprazole (ProtoNix) 40 mg in sodium chloride (PF) 0.9 % 10 mL injection, 40 mg, IntraVENous, Nightly sodium chloride 0.9%, 10 mL, IntraCATHeter, q12h sodium chloride, 4 mL, Nebulization, BID stomahesive in petrolatum, , Topical, 3 times per day [facility] Nephrology Progress Note Subjective/ 75 y.o. year old female who we are seeing in consultation for ESRD and management of HD. Follows with Dr. Loredo and an outpatient HD schedule M- at [facility]. 06/06: TDC removed for suspicion of infection 06/08: Temp HD catheter placed by Icu followed by dialysis. 06/12: New TDC placed Laying bed, mentation seemingly improved BP slightly low during HD today, improved with midodrine Nods head and attempts to mouth words Chronic trach to vent and PEG BP stable, on the low side No LE edema No change in PFSH All data labs/interval notes and overnight issues are reviewed Objective/ Vitals: 06/15/25 1140 06/15/25 1145 06/15/25 1200 06/15/25 1204 BP: 120/54 (!) 110/40 Pulse: 68 70 60 60 Resp: 15 Temp: TempSrc: SpO2: 100% 100% 100% 100% Weight: Height: 24HR INTAKE/OUTPUT: Intake/Output Summary (Last 24 hours) at 06/15/2025 1211 Last data filed at 06/14/2025 1718 Gross per 24 hour Intake 832 ml Output -- Net 832 ml Wt Readings from Last 3 Encounters: 06/11/25 104 kg (229 lb 0.9 oz) Constitutional: Awake, obese HEENT: no pallor/cyanosis or icterus Cardiovascular: S1, S2 without m/r/g Respiratory: CTA, B/l equal air entry trach present Abdomen: +bs, soft, Non tender non distended Ext: No LE edema No CVA tenderness Neurologic Alert and oriented; answers questions Psychiatric Calm and cooperative normal modd and affect Neck: supple, no thyroid enlargement, no JVD elevation Skin: warm, moist, no rashes Tunneled HD catheter RIJ. Medications: Scheduled Meds[1] Continuous Infusions:Continuous Meds[2] PRN Meds:PRN Meds[3] Data/ Recent Labs 06/13/2543206/14/2540106/15/25224 WBC 7.2 5.6 6.1 HGB 8.4* 8.5* 7.9* HCT 26.6* 27.2* 25.7* MCV 83.4 84.7 85.4 PLT 235 222 233 Recent Labs 06/13/2543206/14/2540106/15/25224 NA 134* 138 134* K 3.5 3.5 3.4* CL 97* 99 97* CO2 25 28 25 GLUCOSE 56* 100 80* MG 2.0 1.9 1.8 BUN 39* 19 31* CREATININE 3.37* 1.93* 2.80* Albumin: No components found for: "LABALBU" Calcium: Lab Results Component Value Date CALCIUM 8.8 06/15/2025 Ionized Calcium: No components found for: "IONCA" Magnesium: Lab Results Component Value Date MG 1.8 06/15/2025 Phosphorus: No results found for: "PHOS" / y.o. female with ESRD N18.6 C. Difficile A04.72 Anemia D63.1 Volume overload E87.70 Hyponatremia E87.1 Chronic respiratory failure J96.10 Diabetes E11.22 Dependence on hemodialysis RECOMMENDATIONS: - HD [facility], follows with Dr. Loredo. 2 L removed Wednesday. HD today and will plan to maintain MWF schedule while inpatient -Tunneled line removed last week for infection. New TDC placed yesterday in IR after blood cultures negative. - Anemia -Transfuse to keep Hgb > 7.0 ESRD hgb goal > 10. Iron studies reviewed, c/w DORIS therapy - Okay for Midodrine 10 mg 1 hour prior to iHD for BP support during fluid removal. - Electrolytes improve with dialysis, continue to monitor trends - Avoid nephrotoxins and IV contrast dye - Dose all meds per GFR < 15 - We will follow closely -ID following for management of antibiotics, patient will need to stay inpatient until 06/21 for management of IV antibiotics - D/w primary and dialysis team [1] atorvastatin, 40 mg, Per G Tube, Daily busPIRone, 5 mg, Per G Tube, TID carvedilol, 3.125 mg, Per G Tube, BID WC cefepime, 1,000 mg, IntraVENous, q12h chlorhexidine, , Topical, Daily epoetin alpha-epbx, 25 Units/kg, SubCUTAneous, Once per day on Wednesday FLUoxetine, 20 mg, Per G Tube, Daily furosemide, 20 mg, Per G Tube, Daily heparin, 5,000 Units, SubCUTAneous, 2 times per day insulin glargine, 25 Units, SubCUTAneous, BID insulin lispro, 0-6 Units, SubCUTAneous, q6h ipratropium-albuterol, 3 mL, Nebulization, q4h miconazole, , Topical, BID midodrine, 10 mg, Per G Tube, TID minocycline, 100 mg, Oral, BID pantoprazole (ProtoNix) 40 mg in sodium chloride (PF) 0.9 % 10 mL injection, 40 mg, IntraVENous, Nightly sodium chloride 0.9%, 10 mL, IntraCATHeter, q12h sodium chloride, 4 mL, Nebulization, BID stomahesive in petrolatum, , Topical, 3 times per day [2] [3] PRN medications: acetaminophen OR acetaminophen, albumin human, albuterol, dextrose 5 % and sodium chloride 0.45 %, dextrose, dextrose, glucagon (rDNA), glucose, heparin, heparin, heparin, heparin, LORazepam, melatonin, morphine sulfate, polyethylene glycol (PEG) 3350, promethazine OR promethazine OR promethazine, sodium chloride, sodium chloride, sodium chloride, sodium chloride 0.9%, stomahesive in petrolatum Cosigned by Coleman Toney MD at 06/15/2025 3:15 PM EDT Associated attestation - Coleman Toney MD - 06/15/2025 3:15 PM EDT I have reviewed the above assessment and plan with the FULL STACK DEVELOPER. I agree with above note. HD MWF. [facility] Geriatric Medicine Inpatient Consult Service Admission Date: 06/01/2025 Assessment Principal Problem: Anemia Active Problems: Anemia, unspecified type Moderate malnutrition (CMS/HCC) (HCC) Plan Acute Metabolic Encephalopathy --06/15: improving --Etiology likely due to multiple acute/recent illnesses including polymicrobial pneumonia, HD cath infection, c diff, anemia, hospital environment --Consider changing prn morphine to a more renal-friendly prn narcotic --Encourage family visits and sleep hygiene --If agitated, assess for and consider treating for pain Consider scheduling Tylenol due to limited ability to communicate needs --QTc= QTC 552 ms in setting of LBBB --No antipsychotic due to QTc>500; if patient is danger to self/others/treatment consider low dose benzo use Recommend Lorazepam 0.25mg via peg every 8 hours as needed for agitation or anxiety. Monitor for paradoxical agitation or worsening confusion. No adverse effects documented or reported after receiving Lorazepam 06/12. --PRN melatonin at HS --Monitor for constipation/urinary retention - last BM 06/15 --Possible medication contributions: Lorazepam, Morphine, cefepime Depression Anxiety --Continue Fluoxetine 20mg daily --Continue Buspirone 5mg TID --Add Lorazepam for short term use while hospitalized 06/15: stable plan Debility Contributing factors: CHF/heart disease, diabetes, neuropathy, ESRD, multiple acute illnesses --Since March, she has been at [facility] --candelaria lift at baseline -Per her penitentiary facesheet, her Yamil and son Marcell are her emergency contacts -Anticipate return to SNF once medically improved Follow-up: will follow with you Subjective Chief Complaint: anemia Geriatrics consulted for delirium HPI- The patient is new to me but seen by the Geriatric Inpatient Consult team. 75 y.o. year-old female with past medical history of ESRD on hemodialysis, diabetes, trach and peg (January 2025: had CHF exacerbation, required intubation, required PEG/trach), hyperlipidemia, CAD, polyneuropathy, CHF who was admitted to acute care from [facility] care ([facility]) for severe anemia (hgb 6.5). She has been admitted since 06/01. Received 1 unit of PRBC. Being treated for pleural effusion s/p thoracentesis. She is being treated for pneumonia from pseudomonas aeruginosa, serratia marcescens, and stenotrophomonas maltophilia. Her HD cath was infected with serratia marcescens. It was removed on 06/06. She will be on cefepime for a total 2 weeks due to her infections. She is on minocycline for 10 days. Found to have cdiff, and treatment was completed on 06/12. CBC: hgb 7.9 today CMP: sodium 134, K 3.4, BUN 31, Creatinine 2.8, glucose 80 Tsh within normal limits Reviewed NOV, has not received the prn ativan that was ordered yesterday Had received morphine 1 mg three times on 06/12. She received it once overnight (12:08 am on 06/15) Interval History: Nursing is at bedside. She says that patient has not been having any hallucinations today. Confusion seems much better. Patient denies pain or shortness of breath. She is not able to verbalize but can mouth what she wants to say. She is able to tell me she is in the hospital but can't remember which one. She knows it is 2024. Review of Systems Respiratory: Negative for shortness of breath. Gastrointestinal: Negative for abdominal pain. Musculoskeletal: Negative for arthralgias and myalgias. ROS limited due to non-verbal Objective BP 112/63 Pulse 63 Temp 36.8 C (98.3 F) (Oral) Resp 22 Ht 5' 5" (1.651 m) Wt 229 lb 0.9 oz (104 kg) SpO2 100% BMI 38.12 kg/m Intake/Output Summary (Last 24 hours) at 06/15/2025 1128 Last data filed at 06/14/2025 1718 Gross per 24 hour Intake 832 ml Output -- Net 832 ml Wt Readings from Last 3 Encounters: 06/11/25 229 lb 0.9 oz (104 kg) Current Medications[1] Physical Exam Constitutional: General: She is not in acute distress. Comments: Trach HENT: Head: Normocephalic and atraumatic. Right Ear: No decreased hearing noted. Left Ear: No decreased hearing noted. Cardiovascular: Rate and Rhythm: Normal rate and regular rhythm. Heart sounds: No murmur heard. No friction rub. No gallop. Pulmonary: Effort: Pulmonary effort is normal. Breath sounds: Normal breath sounds. No wheezing, rhonchi or rales. Comments: Auscultated anteriorly only - limited exam Abdominal: General: Bowel sounds are normal. Tenderness: There is no abdominal tenderness. There is no guarding or rebound. Comments: Abdomen is mildly firm PEG tube in place Musculoskeletal: Right lower leg: No edema. Left lower leg: No edema. Neurological: Mental Status: She is alert. Comments: Oriented to "hospital" but not which one. Knew the year. No further orientation questions asked Psychiatric: Attention and Perception: Attention normal. Cognition and Memory: Memory is impaired. Labs and Imaging: Recent Results (from the past 24 hours) ECG 12 lead Collection Time: 06/14/25 4:38 PM Result Value Ref Range Heart Rate 63 bpm QRSD Interval 194 ms QT Interval 543 ms QTC Interval 552 ms P [place] 0 degrees QRS [place] -11 degrees T Wave [place] 188 degrees MA Interval 65 ms POCT glucose meter Collection Time: 06/14/25 4:47 PM Result Value Ref Range Glucose 100 70 - 100 mg/dL TSH Collection Time: 06/14/25 5:29 PM Result Value Ref Range THYROID STIMULATING HORMONE 3.23 0.35 - 4.94 uIU/mL POCT glucose meter Collection Time: 06/14/25 9:21 PM Result Value Ref Range Glucose 106 (H) 70 - 100 mg/dL POCT glucose meter Collection Time: 06/15/25 12:13 AM Result Value Ref Range Glucose 100 70 - 100 mg/dL CBC auto differential Collection Time: 06/15/25 2:25 AM Result Value Ref Range Auto WBC 6.1 3.6 - 10.7 10*3/uL RBC 3.01 (L) 3.80 - 5.20 10*6/uL Hemoglobin 7.9 (L) 11.7 - 16.0 g/dL Hematocrit 25.7 (L) 35.0 - 47.0 % MCV 85.4 77.0 - 99.0 fL MCH 26.2 26.0 - 34.0 pg MCHC 30.7 30.5 - 36.0 % RDW 17.7 (H) 11.5 - 15.0 % Platelets 233 140 - 440 10*3/uL MPV 9.7 9.0 - 12.7 fL nRBC 0.0 0.0 - 2.0 /100 WBCs Neutrophils Relative 66.9 38.0 - 82.0 % Lymphocytes Relative 21.3 15.0 - 45.0 % Monocytes Relative 8.6 5.0 - 13.0 % Eosinophils Relative 2.1 0.0 - 6.0 % Basophils Relative 0.8 0.0 - 2.0 % Immature Grans % 0.3 0.0 - 2.0 % Neutrophils Absolute 4.1 1.8 - 7.5 10*3/uL Lymphocytes Absolute 1.3 1.0 - 4.3 10*3/uL Monocytes Absolute 0.5 0.0 - 0.9 10*3/uL Eosinophils Absolute 0.1 0.0 - 0.5 10*3/uL Basophils Absolute 0.1 0.0 - 0.2 10*3/uL Immature Grans Absolute 0.0 <0.1 10*3/uL Comprehensive metabolic panel Collection Time: 06/15/25 2:25 AM Result Value Ref Range SODIUM 134 (L) 136 - 145 mmol/L POTASSIUM 3.4 (L) 3.5 - 5.1 mmol/L CHLORIDE 97 (L) 98 - 107 mmol/L CARBON DIOXIDE 25 23 - 31 mmol/L ANION GAP 12 3 - 13 mmol/L UREA NITROGEN 31 (H) 9 - 23 mg/dL CREATININE 2.80 (H) 0.57 - 1.11 mg/dL GLUCOSE 80 (L) 82 - 115 mg/dL CALCIUM 8.8 8.8 - 10.0 mg/dL AST (SGOT) 26 <34 U/L ALT 10 <30 U/L ALKALINE PHOSPHATASE 129 40 - 150 U/L ALBUMIN 2.3 (L) 3.4 - 4.8 g/dL BILIRUBIN, TOTAL 0.7 <1.2 mg/dL TOTAL PROTEIN 6.4 6.4 - 8.3 g/dL eGFR 16.9 (L) >60.0 mL/min/1.73m*2 Magnesium Collection Time: 06/15/25 2:25 AM Result Value Ref Range MAGNESIUM 1.8 1.6 - 2.6 mg/dL POCT glucose meter Collection Time: 06/15/25 6:16 AM Result Value Ref Range Glucose 98 70 - 100 mg/dL Lab Results Component Value Date TSH 3.23 06/14/2025 Lab Results Component Value Date [id number] 1,032 (H) 06/02/2025 No results found for: "VITD25" [1] Current Facility-Administered Medications: acetaminophen (Tylenol) tablet 650 mg, 650 mg, Oral, q6h PRN, 650 mg at 06/13/252045 OR acetaminophen (Tylenol) suppository 650 mg, 650 mg, Rectal, q6h PRN, Sharyn Amaya MD albumin human 5 % IV solution 25 g, 25 g, IntraVENous, TID PRN, Rad Acosta MD albuterol (2.5 MG/3ML) 0.083% nebulizer solution 2.5 mg, 2.5 mg, Nebulization, q6h PRN, Neelima Hanks APRN - METALLURGIST HELPER atorvastatin (Lipitor) tablet 40 mg, 40 mg, Per G Tube, Daily, Grzegorz Chatterjee MD, 40 mg at 06/15/25 0934 busPIRone (Buspar) tablet 5 mg, 5 mg, Per G Tube, TID, Grzegorz Chatterjee MD, 5 mg at 06/15/25 0934 carvedilol (Coreg) tablet 3.125 mg, 3.125 mg, Per G Tube, BID WC, Raine Etienne MD, 3.125 mg at 06/15/25 0934 cefepime (Maxipime) 1,000 mg in sodium chloride 0.9 % 50 mL IVPB, 1,000 mg, IntraVENous, q12h, Geno Waddell MD, Stopped at 06/15/25 0651 chlorhexidine (Hibiclens) 4 % solution, , Topical, Daily, Anjum Fam MD dextrose 5 % and sodium chloride 0.45 % bolus 500 mL, 500 mL, IntraVENous, TID PRN, Rad Acosta MD dextrose 5 % infusion, 100 mL/hr, IntraVENous, PRN, Sharyn Amaya MD, Stopped at 06/02/25 1757 dextrose 50 % solution 12.5 g, 12.5 g, IntraVENous, PRN, Sharyn Amaya MD, 12.5 g at 06/13/25 0524 epoetin jenn-epbx (Retacrit) injection 2,600 Units, 25 Units/kg, SubCUTAneous, Once per day on Wednesday, RENITA Clifford CNP, 2,600 Units at 06/15/25 0934 FLUoxetine (PROzac) capsule 20 mg, 20 mg, Per G Tube, Daily, Grzegorz Chatterjee MD, 20 mg at 06/15/25 0932 furosemide (Lasix) tablet 20 mg, 20 mg, Per G Tube, Daily, Grzegorz Chatterjee MD, 20 mg at 06/15/25 0934 glucagon (human recombinant) injection 1 mg, 1 mg, IntraMUSCular, PRN, Sharyn Amaya MD glucose oral gel 15 g, 15 g, Oral, PRN, Sharyn Amaya MD heparin injection 1,200-2,000 Units, 1,200-2,000 Units, IntraCATHeter, PRN, RENITA Clifford CNP, 1,400 Units at 06/11/25 1404 heparin injection 1,200-2,000 Units, 1,200-2,000 Units, IntraCATHeter, PRN, RENITA Clifford CNP, 1,400 Units at 06/11/25 1402 heparin injection 1,200-2,000 Units, 1,200-2,000 Units, IntraCATHeter, PRN, Yamil Newby MD heparin injection 1,200-2,000 Units, 1,200-2,000 Units, IntraCATHeter, PRN, Yamil Newby MD heparin injection 5,000 Units, 5,000 Units, SubCUTAneous, 2 times per day, Sharyn Amaya MD, 5,000 Units at 06/15/25 0934 insulin glargine (Lantus) injection 25 Units, 25 Units, SubCUTAneous, BID, Sharyn Amaya MD, 25 Units at 06/15/25 0934 Insulin Lispro (Humalog) injection 0-6 Units, 0-6 Units, SubCUTAneous, q6h, Grzegorz Chatterjee MD, 1 Units at 06/14/25 1202 ipratropium-albuterol (Duo-Neb) 0.5-2.5 mg/3 mL nebulizer solution 3 mL, 3 mL, Nebulization, q4h, Neelima Hanks APRN - RENEE, 3 mL at 06/15/25 0743 LORazepam (Ativan) tablet 0.25 mg, 0.25 mg, Per G Tube, q8h PRN, Diana Zabala APRN - METALLURGIST HELPER melatonin tablet 3 mg, 3 mg, Per G Tube, Nightly PRN, Diana Ezzie GROUNDMAN/LINEMAN - METALLURGIST HELPER miconazole (Micotin) 2 % powder, , Topical, BID, Patrica Weinstein, RENITA - METALLURGIST HELPER, Given at 06/15/25 0935 midodrine (Proamatine) tablet 10 mg, 10 mg, Per G Tube, TID, Grzegorz Chatterjee MD, 10 mg at 06/15/25 0933 minocycline capsule 100 mg, 100 mg, Oral, BID, Kishore Wolff MD, 100 mg at 06/15/25 0934 morphine injection 1 mg, 1 mg, IntraVENous, q4h PRN, Geno Waddell MD, 1 mg at 06/15/25 0008 pantoprazole (ProtoNix) 40 mg in sodium chloride (PF) 0.9 % 10 mL injection, 40 mg, IntraVENous, Nightly, Grzegorz Chatterjee MD, 40 mg at 06/14/252120 polyethylene glycol (PEG) 3350 (Miralax) packet 17 g, 17 g, Oral, Daily PRN, Sharyn Amaya MD promethazine (Phenergan) tablet 12.5 mg, 12.5 mg, Oral, q6h PRN OR promethazine (Phenergan) injection 12.5 mg, 12.5 mg, IntraMUSCular, q6h PRN OR promethazine (Phenergan) suppository 12.5 mg, 12.5 mg, Rectal, q6h PRN, Sharyn Amaya MD sodium chloride 0.9 % infusion, 250 mL/hr, IntraVENous, PRN, Omid Orona MD sodium chloride 0.9 % infusion, 250 mL/hr, IntraVENous, PRN, Geno Waddell MD sodium chloride 0.9 % infusion, 250 mL/hr, IntraVENous, PRN, Tomy Hill MD sodium chloride 0.9% (NS) flush 10 mL, 10 mL, IntraCATHeter, q12h, Anjum Fam MD, 10 mL at 06/15/25 0935 sodium chloride 0.9% (NS) flush 10 mL, 10 mL, IntraCATHeter, PRN, Anjum Fam MD sodium chloride 3 % hypertonic nebulizer solution 4 mL, 4 mL, Nebulization, BID, Neelima Hanks APRN - METALLURGIST HELPER, 4 mL at 06/15/25 0735 stomahesive in petrolatum (ET Mix), , Topical, PRN, RENITA Gtz CNP, Given at 06/08/25 1857 stomahesive in petrolatum (ET Mix), , Topical, 3 times per day, RENITA Gtz CNP, Given at 06/15/25 0632 [facility] Respiratory Care Department Progress Note Spontaneous Awakening Trial Wean Screen SpO2>/=88%: Yes (06/15/25324) FiO2</=50%: Yes (06/15/25324) PEEP </=8cmH2O: Yes (06/15/25324) HR <140 BPM: Yes (06/15/25324) RR </= 35 breaths/min: Yes (06/15/25324) MAP >/= 65mmHg: Yes (06/15/25324) Arterial pH >7.30: Yes (06/15/25324) Safety Screen Spontaneous Breathing Trial (SBT - RT) : SBT Held - Chronic Ventilator Dependent (06/15/25324) Spontaneous Breathing Trial Vent Settings Vent Mode: Assist control (06/15/25324) Mandatory Type: VC+ (06/15/25324) Resp Rate (Set): 14 (06/15/25324) Vt (Set, mL): 450 mL (06/15/25324) FiO2 (%): 30 % (06/15/25324) PEEP/CPAP (cm H2O): 5 cm H20 (06/15/25324) Inspiratory Time (sec): 0.9 sec (06/15/25324) Vitals MAP (mmHg): 73 (06/14/25 1600) Heart Rate: 75 (06/15/25324) Resp: (!) 28 (06/15/25324) SpO2: 100 % (06/15/25324) Suctioning/Secretions Secretion Amount: Scant (06/15/25324) Secretion Color: Clear (06/15/25324) Secretion Consistency: Thin (06/15/25324) ABG results No results for input(s): "PHART", "EPN8ISP", "PO2ART", "LVP8FGP", "SO2ART", "L6WGIVEB" in the last 72 hours. Does this patient meet criteria for termination of mechanical ventilation No - Chronic Vent Dependent Name of physician notified via secure chat or in person : N/A (NA if patient did not meet criteria) Comments: Thank you for involving Respiratory in the care of this patient, [facility] Nephrology Progress Note Subjective/ 75 y.o. year old female who we are seeing in consultation for ESRD and management of HD. Follows with Dr. Loredo and an outpatient HD schedule M- at [facility]. 06/06: TDC removed for suspicion of infection 06/08: Temp HD catheter placed by Icu followed by dialysis. 06/12: New TDC placed Laying bed, seems confused Picked dx off TDC, line appears to still be intact Nods head and attempts to mouth words Chronic trach to vent and PEG BP stable, on the low side No LE edema No change in PFSH All data labs/interval notes and overnight issues are reviewed Objective/ Vitals: 06/14/25 0806 06/14/25 0856 06/14/25 1126 06/14/25 1144 BP: 141/91 120/55 BP Location: Left arm Patient Position: Lying Pulse: 63 67 Resp: 16 Temp: 36.7 C (98.1 F) TempSrc: Oral SpO2: 100% 100% 100% 100% Weight: Height: 24HR INTAKE/OUTPUT: Intake/Output Summary (Last 24 hours) at 06/14/2025 1326 Last data filed at 06/14/2025 0349 Gross per 24 hour Intake 1727 ml Output 22771 ml Net -10304 ml Wt Readings from Last 3 Encounters: 06/11/25 104 kg (229 lb 0.9 oz) Constitutional: Awake, obese HEENT: no pallor/cyanosis or icterus Cardiovascular: S1, S2 without m/r/g Respiratory: CTA, B/l equal air entry trach present Abdomen: +bs, soft, Non tender non distended Ext: No LE edema No CVA tenderness Neurologic Alert and oriented; answers questions Psychiatric Calm and cooperative normal modd and affect Neck: supple, no thyroid enlargement, no JVD elevation Skin: warm, moist, no rashes Tunneled HD catheter RIJ. Medications: Scheduled Meds[1] Continuous Infusions:Continuous Meds[2] PRN Meds:PRN Meds[3] Data/ Recent Labs 06/12/25 0550 06/13/25 0433 06/14/25 0402 WBC 6.9 7.2 5.6 HGB 7.9* 8.4* 8.5* HCT 25.0* 26.6* 27.2* MCV 83.9 83.4 84.7 PLT 224 235 222 Recent Labs 06/12/25 0550 06/13/25 0433 06/14/25 0402 NA 137 134* 138 K 3.7 3.5 3.5 CL 98 97* 99 CO2 27 25 28 GLUCOSE 165* 56* 100 MG -- 2.0 1.9 BUN 26* 39* 19 CREATININE 2.53* 3.37* 1.93* Albumin: No components found for: "LABALBU" Calcium: Lab Results Component Value Date CALCIUM 9.0 06/14/2025 Ionized Calcium: No components found for: "IONCA" Magnesium: Lab Results Component Value Date MG 1.9 06/14/2025 Phosphorus: No results found for: "PHOS" / 75 y.o. female with ESRD N18.6 C. Difficile A04.72 Anemia D63.1 Volume overload E87.70 Hyponatremia E87.1 Chronic respiratory failure J96.10 Diabetes E11.22 Dependence on hemodialysis RECOMMENDATIONS: - HD schedule M- at [facility], follows with Dr. Loredo. 2 L removed yesterday. HD tomorrow and will plan to maintain MWF schedule while inpatient -Tunneled line removed last week for infection. New TDC placed yesterday in IR after blood cultures negative. - Anemia -Transfuse to keep Hgb > 7.0 ESRD hgb goal > 10. Iron studies reviewed, c/w DORIS therapy - Okay for Midodrine 10 mg 1 hour prior to iHD for BP support during fluid removal. - Electrolytes improve with dialysis, continue to monitor trends - Avoid nephrotoxins and IV contrast dye - Dose all meds per GFR < 15 - We will follow closely -ID following for management of antibiotics - Plan d/w patient's RN [1] atorvastatin, 40 mg, Per G Tube, Daily busPIRone, 5 mg, Per G Tube, TID carvedilol, 3.125 mg, Per G Tube, BID WC cefepime, 1,000 mg, IntraVENous, q12h epoetin alpha-epbx, 25 Units/kg, SubCUTAneous, Once per day on Wednesday FLUoxetine, 20 mg, Per G Tube, Daily furosemide, 20 mg, Per G Tube, Daily heparin, 5,000 Units, SubCUTAneous, 2 times per day insulin glargine, 25 Units, SubCUTAneous, BID insulin lispro, 0-6 Units, SubCUTAneous, q6h ipratropium-albuterol, 3 mL, Nebulization, q4h miconazole, , Topical, BID midodrine, 10 mg, Per G Tube, TID minocycline, 100 mg, Oral, BID pantoprazole (ProtoNix) 40 mg in sodium chloride (PF) 0.9 % 10 mL injection, 40 mg, IntraVENous, Nightly sodium chloride, 4 mL, Nebulization, BID stomahesive in petrolatum, , Topical, 3 times per day [2] [3] PRN medications: acetaminophen OR acetaminophen, albumin human, albuterol, dextrose 5 % and sodium chloride 0.45 %, dextrose, dextrose, glucagon (rDNA), glucose, heparin, heparin, heparin, heparin, morphine sulfate, polyethylene glycol (PEG) 3350, promethazine OR promethazine OR promethazine, sodium chloride, sodium chloride, sodium chloride, stomahesive in petrolatum Cosigned by Coleman Toney MD at 06/14/2025 3:54 PM EDT Associated attestation - Coleman Toney MD - 06/14/2025 3:54 PM EDT I have reviewed the above assessment and plan with the FULL STACK DEVELOPER. I agree with above note. DICK MWF. Images from the original note were not included. [facility] Wound Care Progress Note Rosa Myers AGE: 75 y.o. GENDER: female : 1950 Subjective: HISTORY of PRESENT ILLNESS HPI Rosa Myers is a 75 y.o. female who presents for a wound follow up. HPI: Ms. Myers is a 75 y.o. female who presents to the emergency department with chief complaint of abnormal blood counts. [facility] that shows hemoglobin of 6.5. Patient has chronic renal failure, per her nursing notes receives dialysis Wednesday through Wednesday at her facility. Patient has tracheostomy in place for chronic respiratory failure, PEG tube in place. Patient is able to answer questions by nodding her head yes and no but somewhat limited history due to tracheostomy in place. Admitted for anemia and chronic renal failure. She is currently admitted to ICU. Wound Care consulted for multiple wounds - coccyx, groin, nose, feet and left leg. Patient resting in bed. RN at bedside. Photos updated. Some wound resolved. Left heel ulcer stable PAST MEDICAL HISTORY Medical History[1] PAST SURGICAL HISTORY Surgical History[2] FAMILY HISTORY Family History[3] SOCIAL HISTORY Social History[4] ALLERGIES Allergies[5] MEDICATIONS Medications Ordered Prior to Encounter[6] REVIEW OF SYSTEMS Pertinent items are noted in HPI. Objective: BP 156/74 Pulse 67 Temp 36.7 C (98.1 F) (Oral) Resp 15 Ht 5' 5" (1.651 m) Wt 229 lb 0.9 oz (104 kg) SpO2 100% BMI 38.12 kg/m PHYSICAL EXAM General appearance: alert, oriented times 3, and cooperative Skin: warm and dry Pulmonary: NAD, trached on ventilator Abdomen: soft, nontender, and nondistended Extremities: warm and dry Nose - Resolved Forehead - Resolved 06/14/25 Left heel -1.0 x 1.0 x 0.0cm - thin red, dry scab noted, no drainage, jaleesa wound tissue with peeling tissue. 06/14/25 Right abdominal skin fold - Resolved 06/14/25 Sacrum - Resolved 06/14/25 Right medial thigh - Resolved 06/14/25 LABS CBC: Lab Results Component Value Date WBC 5.6 06/14/2025 HGB 8.5 (L) 06/14/2025 HCT 27.2 (L) 06/14/2025 MCV 84.7 06/14/2025 PLT 222 06/14/2025 BMP: Lab Results Component Value Date NA 138 06/14/2025 K 3.5 06/14/2025 CL 99 06/14/2025 CO2 28 06/14/2025 BUN 19 06/14/2025 CREATININE 1.93 (H) 06/14/2025 PT/INR: No results found for: "PROTIME", "INR" Prealbumin: No results found for: "PREALBUMIN" Albumin:No components found for: LABALBU Sed Rate:No results found for: SEDRATE Micro: No components found for: BC Assessment/Plan: Nursing staff to perform dressing change: Forehead: Resolved Nose: Resolved Left heel Stage 2 pressure injury (POA): -cleanse with NS, apply skin barrier wipe, leave PRAVEEN daily and PRN Right/Left abdominal skin fold: Resolved continue for prevention -cleanse with soap and water and dry thoroughly, apply Miconazole powder, leave PRAVEEN BID and PRN Sacral: Resolved continue for prevention - cleanse with soap and water, apply ET mix TID and PRN, leave STAFF HOME THERAPY RN Right medial thigh Resolved continue for prevention - cleanse with soap and water, apply ET mix TID and PRN, leave PRAVEEN -continue ICU bed -Q2hr/PRN turns -glide sheets for T&R -continence checks Q1-2 Hrs/PRN Nutritional support Wound Care to follow Recommend to follow up at [facility] wound care center after hospital discharge. Any questions or concerns please secure chat "[facility] wound/ostomy". I personally obtained the soto and critical portions of the history and physical exam. I reviewed the labs, imaging studies, and electronic medical record. I reviewed the chart documentation and discussed the patient with treatment team members. I have edited the note to reflect my clinical findings and my assessment and plan. Please note, the time of this note does not reflect the time I saw this patient today, but the time of this documentaton. Portions of this note including HPI, ROS, impression/plan, and examination may have been copied forward from admission to today as to provide important historical information essential in contributing to medical decision making. Documentation has been reviewed and edited as necessary to support clinical decision making for today's visit and to reflect my own independent evaluation of this patient. Decision making for today's visit and to reflect my own independent evaluation of this patient. [1] No past medical history on file. [2] No past surgical history on file. [3] No family history on file. [4] Social History Tobacco Use Smoking status: Never Passive exposure: Past Smokeless tobacco: Never [5] No Known Allergies [6] No current facility-administered medications on file prior to encounter. Current Outpatient Medications on File Prior to Encounter Medication Sig Dispense Refill atorvastatin (Lipitor) 40 MG tablet Take 40 mg by mouth daily. Via PEG busPIRone (Buspar) 5 MG tablet Take 5 mg by mouth 3 times daily. carvedilol (Coreg) 12.5 MG tablet Take 12.5 mg by mouth 2 times daily. Hold before dialysis FLUoxetine (PROzac) 20 MG/5ML solution Take 20 mg by mouth daily. Via PEG furosemide (Lasix) 20 MG tablet Take 20 mg by mouth daily. Via PEG, given on wed/Wednesday for weight gain insulin glargine (Lantus) 100 UNIT/ML injection Inject 25 Units under the skin 2 times daily. Insulin Lispro (Humalog) 100 UNIT/ML solution injection Inject 2-12 Units under the skin 3 times daily (with meals). Sliding scale: 150-200 = 2 units, 102-250 = 4 units, 251-300 = 6 units, 301-350 = 8 units, 351-400 = 10 units, 401-450 = 12 units midodrine (Proamatine) 10 MG tablet Take 10 mg by mouth 3 times daily. Via PEG, given M-F 1hr prior to dialysis pantoprazole (ProtoNix) 20 MG EC tablet Take 20 mg by mouth every morning (before breakfast). Do not crush, chew, or split. Petrolatum ointment Apply 1 Application topically 2 times daily as needed (forehead itching). Cosigned by Miguel Barraza DO at 06/19/2025 12:02 PM EDT [facility] Hospitalist Progress note [phone]: Please page me ([phone]) for patient care issues. [phone]: Please page [facility] Hospitalist for any issues. Subjective: Admit Date: 06/01/2025 PCP: No primary care provider on file. Room#: 222-04/222-04 José Miguel Myers is a 75 y.o. female who presents with Anemia Interval History: having episodes of confusion and hallucinations earlier today. No sob, cough, n/v. Tolerating tube feeds. Discussed with RYNE Schultz, separately Diet, tube feeding no tray PEG; Nepro w/CARB Steady; Continuous; No; 40; 40 24HR INTAKE/OUTPUT: Intake/Output Summary (Last 24 hours) at 06/14/2025 1133 Last data filed at 06/14/2025 0349 Gross per 24 hour Intake 1727 ml Output 56702 ml Net -65130 ml LABS: CBC: Recent Labs 06/12/25 0550 06/13/25 0433 06/14/25 0402 WBC 6.9 7.2 5.6 RBC 2.98* 3.19* 3.21* HGB 7.9* 8.4* 8.5* HCT 25.0* 26.6* 27.2* MCV 83.9 83.4 84.7 RDW 18.3* 17.8* 18.0* PLT 224 235 222 BMP: Recent Labs 06/12/25 0550 06/13/25 0433 06/14/25 0402 NA 137 134* 138 K 3.7 3.5 3.5 CL 98 97* 99 CO2 27 25 28 BUN 26* 39* 19 CREATININE 2.53* 3.37* 1.93* GLUCOSE 165* 56* 100 CALCIUM 8.7* 9.3 9.0 ANIONGAP 12 12 11 LIVER PROFILE: Recent Labs 06/12/25 0550 06/13/25 0433 06/14/25 0402 AST 21 22 27 ALT 9 12 16 BILITOT 0.7 0.8 0.6 ALKPHOS 115 127 135 PROT 6.4 6.8 6.7 PT/INR: No results for input(s): "PROTIME", "INR" in the last 72 hours. CARDIAC ENZYMES: No results for input(s): "TROPONINI" in the last 72 hours. Procalcitonin: No results found for: "PROCAL" @RISRSLTSPECIALTY@ Objective: Vitals: BP 141/91 (BP Location: Left arm, Patient Position: Lying) Pulse 63 Temp 36.7 C (98.1 F) (Oral) Resp 20 Ht 5' 5" (1.651 m) Wt 229 lb 0.9 oz (104 kg) SpO2 100% BMI 38.12 kg/m Pulse Ox: SpO2 Av.6 % Min: 83 % Max: 100 % Supplemental O2: 06/14/2025 General appearance: No apparent distress, appears stated age, AAOX3 Oral: Tongue is semi-moist Cardiovascular: S1/S2 heard, RRR Respiratory: Clear to auscultation bilaterally, tracheostomy site red and inflamed Abdomen: Soft, non-tender, non-distended bowel sounds positive Musculoskeletal: Bilateral venous stasis changes Skin: Tunneled line removed, dressing in place, no redness or erythema Medications: Continuous Meds[1] Scheduled Meds[2] Assessment Altered mental status and hallucinations Acute on chronic anemia Chronic bilateral pleural effusions Pneumonia Chronic respiratory failure tracheostomy dependent Concern for tunneled line infection C. difficile infection Hypokalemia Pressure ulcers present on admission ESRD on HD chronic heart failure Severe malnutrition GERD Anxiety Depression Type 2 diabetes Chronic candidiasis Neuropathy Plan Continue present tx, continue IV and PO antibiotics, ID and Pulmonology and Wound Care and Nephrology following, Geriatrics evaluation for delirium evaluation, will need tunneled PICC line, continue HD, POCT, SS insulin, continue tube feeds, follow up labs, discharge planning, see orders -am labs, replace lytes prn -increase activity Diet Diet, tube feeding no tray PEG; Nepro w/CARB Steady; Continuous; No; 40; 40 DVT Prophylaxis [] Lovenox, [x] Heparin, [] SCDs, [] Ambulation [] Already on Anticoagulation GI Prophylaxis [] PPI, [] H2 Herb, [] Carafate, [] Diet/Tube Feeds Code Status Full Code MDM [] Low, [] Moderate,[x] High Patient's risk as above Anticipated Discharge - Date -06/15-06/16 - Location - Skilled Facility - Pending the following -PICC placed, acceptance and when OK with Geriatrics Total time spent (which include face to face and non face to face encounters) : 47 minutes Toxic drug monitoring/narrow therapeutic index drug monitoring : # Drug name : SS insulin and heparin # Route administered : subcutaneous and subcutaneous # Method of monitoring : Q6hr BG/daily BMP/hypoglycemia protocol and daily CBC No emergency contact information on file. Advance Directive: Full Code Discharge planning: TBD Robert Jimenez MD Division of Hospitalist Medicine Inpatient Medical Services/[facility] [1] [2] atorvastatin, 40 mg, Per G Tube, Daily busPIRone, 5 mg, Per G Tube, TID carvedilol, 3.125 mg, Per G Tube, BID WC cefepime, 1,000 mg, IntraVENous, q12h epoetin alpha-epbx, 25 Units/kg, SubCUTAneous, Once per day on Wednesday FLUoxetine, 20 mg, Per G Tube, Daily furosemide, 20 mg, Per G Tube, Daily heparin, 5,000 Units, SubCUTAneous, 2 times per day insulin glargine, 25 Units, SubCUTAneous, BID insulin lispro, 0-6 Units, SubCUTAneous, q6h ipratropium-albuterol, 3 mL, Nebulization, q4h miconazole, , Topical, BID midodrine, 10 mg, Per G Tube, TID minocycline, 100 mg, Oral, BID pantoprazole (ProtoNix) 40 mg in sodium chloride (PF) 0.9 % 10 mL injection, 40 mg, IntraVENous, Nightly sodium chloride, 4 mL, Nebulization, BID stomahesive in petrolatum, , Topical, 3 times per day Images from the original note were not included. [facility] [address] [place], [place] [id number] Patient - Rosa Myers, Age - 75 y.o. - 1950 Room Number - [id number] A Consulting - Robert Jimenez MD Primary Care Physician - No primary care provider on file. Date of Admission - 06/01/2025 10:53 AM Hospital Day - 13 Problem List[1] Chief Complaint: Jose Maria Myers is a 75 y.o. female who pulmonary is following for VDRF Subjective/Interval History: Respiratory status stable on vent. Patient awake sitting up comfortably in bed. Denied shortness of breath. No new overnight concerns. Vent settings: Mode A/C VC+, RR 14, Vt 450, 30% FiO2, PEEP 5 cm H2O A pertinent review of systems was performed and was otherwise non-contributory except as detailed in Subjective section above. Objective: Vitals: BP 141/91 (BP Location: Left arm, Patient Position: Lying) Pulse 63 Temp 36.7 C (98.1 F) (Oral) Resp 20 Ht 5' 5" (1.651 m) Wt 229 lb 0.9 oz (104 kg) SpO2 100% BMI 38.12 kg/m Pulse Ox: SpO2 Av.6 % Min: 83 % Max: 100 % Supplemental O2: 30% FiO2 on Vent. I/O 24HR INTAKE/OUTPUT: Intake/Output Summary (Last 24 hours) at 06/14/2025 1117 Last data filed at 06/14/2025 0349 Gross per 24 hour Intake 1727 ml Output 94200 ml Net -48339 ml Physical Exam:unchanged compared to 06/07 Physical Exam Vitals and nursing note reviewed. Constitutional: General: She is not in acute distress. Comments: Chronically ill appearing Neck: Trachea: Tracheostomy present. Cardiovascular: Rate and Rhythm: Normal rate and regular rhythm. Pulmonary: Effort: Pulmonary effort is normal. No respiratory distress. Breath sounds: Rhonchi present. No wheezing or rales. Comments: Chronic vent dependence Chest: Comments: Right tunneled HD catheter in place Musculoskeletal: Right lower leg: No edema. Left lower leg: No edema. Skin: General: Skin is warm and dry. Coloration: Skin is not jaundiced. Findings: No lesion or rash. Neurological: Mental Status: Mental status is at baseline. Psychiatric: Mood and Affect: Mood normal. Behavior: Behavior normal. Behavior is cooperative. Medications: Allergies[2] Current Medications[3] PRN Meds[4] Labs: CBC: Recent Labs 06/12/25 0550 06/13/25 0433 06/14/25 0402 WBC 6.9 7.2 5.6 HGB 7.9* 8.4* 8.5* HCT 25.0* 26.6* 27.2* PLT 224 235 222 MCV 83.9 83.4 84.7 RDW 18.3* 17.8* 18.0* BMP: Recent Labs 06/12/25 0550 06/13/25 0433 06/14/25 0402 NA 137 134* 138 K 3.7 3.5 3.5 CL 98 97* 99 CO2 27 25 28 BUN 26* 39* 19 CREATININE 2.53* 3.37* 1.93* CALCIUM 8.7* 9.3 9.0 MG -- 2.0 1.9 LFTs: Recent Labs 06/12/25 0550 06/13/25 0433 06/14/25 0402 AST 21 22 27 ALT 9 12 16 PROT 6.4 6.8 6.7 ALBUMIN 2.2* 2.3* 2.3* BILITOT 0.7 0.8 0.6 ALKPHOS 115 127 135 Glucose: Recent Labs 06/12/25 0550 06/12/25 1238 06/13/25 0433 06/13/25 0516 06/13/25 0543 06/13/25 1259 06/13/25 1846 06/13/25 2052 06/14/25 0136 06/14/25 0402 06/14/25 0547 06/14/25 1108 GLUCOSE 165* -- 56* -- -- -- -- -- -- 100 -- -- POCGLU -- < > -- 67* 122* 107* 108* 108* 125* -- 126* 161* < > = values in this interval not displayed. Pleural fluid 06/07/25: Lab Results Component Value Date LDHFL 91 06/07/2025 PROTEINFL 3.9 06/07/2025 FLUIDTYPE Pleural Fluid 06/07/2025 FLUIDTYPE Pleural Fluid 06/07/2025 LDH 213 06/08/2025 PROT 6.7 06/14/2025 ALBUMIN 2.3 (L) 06/14/2025 Microbiology: + C difficile Blood cultures: NGTD Dialysis catheter tip: + Serratia marcescens Sputum culture: + Serratia marcescens, Stenotrophomonas maltophilia & Pseudomonas aeruginosa Imaging/ Testing: CXR 06/08/25: IMPRESSION: Lines, tubes, and devices:Interval placement a right IJ approach central venous catheter with tip projecting over the SVC. Tracheostomy tube again projects over the trachea. Lungs and pleura:Prominence of the central pulmonary vasculature without overt pulmonary edema. Hazy bibasilar opacities likely small pleural effusions with associated atelectasis. Superimposed infectious/inflammatory process is not entirely excluded. No interval pneumothorax. Cardiomediastinal silhouette: Stable enlarged cardiac silhouette.Atherosclerotic calcifications of the aortic arch Other: Degenerative changes of the spine and acromioclavicular joints. Assessment and Plan/Recommendations: Chronic respiratory failure with hypoxia. Ventilator dependence Tracheostomy dependence Hx bilateral pleural effusions, transudate Possible PNA- polymicorbial respiratory tract infections. ESRD with pulmonary edema Anemia + C Diff S/p left thoracentesis with removal of 600 ml dacosta fluid, borderline exudate. Culture NGTD. Recent CXR with small effusions, atelectasis Continue fluid removal via HD. New tunneled HD catheter placed 06/12. Management as per Nephrology (M/W/F) Sputum culture + Serratia, Stenotrophomonas and Pseudomonas. ID recommending 2 weeks of Cefepime through 06/21 and Minocycyline x 10 days. Continue DuoNeb's, Hypertonic saline aerosols Respiratory status stable on vent. Continue home settings. No plans for weaning. Routine trach care & pulmonary hygiene Advance Directive: Full Code Discharge planning: Patient remains stable to discharge back to [facility] from pulmonary standpoint Case discussed with nurse and patient Questions and concerns addressed. [1] Patient Active Problem List Diagnosis Anemia Anemia, unspecified type Moderate malnutrition (CMS/HCC) (HCC) [2] No Known Allergies [3] Current Facility-Administered Medications: acetaminophen (Tylenol) tablet 650 mg, 650 mg, Oral, q6h PRN, 650 mg at 06/13/252045 OR acetaminophen (Tylenol) suppository 650 mg, 650 mg, Rectal, q6h PRN, Sharyn Amaya MD albumin human 5 % IV solution 25 g, 25 g, IntraVENous, TID PRN, Rad Acosta MD albuterol (2.5 MG/3ML) 0.083% nebulizer solution 2.5 mg, 2.5 mg, Nebulization, q6h PRN, RENITA Tyler CNP atorvastatin (Lipitor) tablet 40 mg, 40 mg, Per G Tube, Daily, Grzegorz Chatterjee MD, 40 mg at 06/14/25915 busPIRone (Buspar) tablet 5 mg, 5 mg, Per G Tube, TID, Grzegorz Chatterjee MD, 5 mg at 06/14/25915 carvedilol (Coreg) tablet 3.125 mg, 3.125 mg, Per G Tube, BID WC, Raine Etienne MD, 3.125 mg at 06/14/2518 cefepime (Maxipime) 1,000 mg in sodium chloride 0.9 % 50 mL IVPB, 1,000 mg, IntraVENous, q12h, Geno Waddell MD, Stopped at 06/14/25 0435 dextrose 5 % and sodium chloride 0.45 % bolus 500 mL, 500 mL, IntraVENous, TID PRN, Rad Acosta MD dextrose 5 % infusion, 100 mL/hr, IntraVENous, PRN, Sharyn Amaya MD, Stopped at 06/02/25 1757 dextrose 50 % solution 12.5 g, 12.5 g, IntraVENous, PRN, Sharyn Amaya MD, 12.5 g at 06/13/25 0524 epoetin jenn-epbx (Retacrit) injection 2,600 Units, 25 Units/kg, SubCUTAneous, Once per day on Wednesday, RENITA Clifford CNP, 2,600 Units at 06/13/25 1125 FLUoxetine (PROzac) capsule 20 mg, 20 mg, Per G Tube, Daily, Grzegorz Chatterjee MD, 20 mg at 06/14/25 0918 furosemide (Lasix) tablet 20 mg, 20 mg, Per G Tube, Daily, Grzegorz Chatterjee MD, 20 mg at 06/14/25 0916 glucagon (human recombinant) injection 1 mg, 1 mg, IntraMUSCular, PRN, Sharyn Amaya MD glucose oral gel 15 g, 15 g, Oral, PRN, Sharyn Amaya MD heparin injection 1,200-2,000 Units, 1,200-2,000 Units, IntraCATHeter, PRN, RENITA Clifford CNP, 1,400 Units at 06/11/25 1404 heparin injection 1,200-2,000 Units, 1,200-2,000 Units, IntraCATHeter, PRN, RENITA Clifford CNP, 1,400 Units at 06/11/25 1402 heparin injection 1,200-2,000 Units, 1,200-2,000 Units, IntraCATHeter, PRN, Yamil Newby MD heparin injection 1,200-2,000 Units, 1,200-2,000 Units, IntraCATHeter, PRN, Yamil Newby MD heparin injection 5,000 Units, 5,000 Units, SubCUTAneous, 2 times per day, Sharyn Amaya MD, 5,000 Units at 06/14/25 0916 insulin glargine (Lantus) injection 25 Units, 25 Units, SubCUTAneous, BID, Sharyn Amaya MD, 25 Units at 06/14/25 0918 Insulin Lispro (Humalog) injection 0-6 Units, 0-6 Units, SubCUTAneous, q6h, Grzegorz Chatterjee MD, 1 Units at 06/12/25 1318 ipratropium-albuterol (Duo-Neb) 0.5-2.5 mg/3 mL nebulizer solution 3 mL, 3 mL, Nebulization, q4h, Neelima Hanks APRN - METALLURGIST HELPER, 3 mL at 06/14/25 0815 miconazole (Micotin) 2 % powder, , Topical, BID, Patrica Weinstein APRN - RENEE, Given at 06/14/25917 midodrine (Proamatine) tablet 10 mg, 10 mg, Per G Tube, TID, Grzegorz Chatterjee MD, 10 mg at 06/13/252045 minocycline capsule 100 mg, 100 mg, Oral, BID, Kishore Wolff MD, 100 mg at 06/14/25915 morphine injection 1 mg, 1 mg, IntraVENous, q4h PRN, Geno Waddell MD, 1 mg at 06/12/252215 pantoprazole (ProtoNix) 40 mg in sodium chloride (PF) 0.9 % 10 mL injection, 40 mg, IntraVENous, Nightly, Grzegorz Chatterjee MD, 40 mg at 06/13/252045 polyethylene glycol (PEG) 3350 (Miralax) packet 17 g, 17 g, Oral, Daily PRN, Sharyn Amaya MD promethazine (Phenergan) tablet 12.5 mg, 12.5 mg, Oral, q6h PRN OR promethazine (Phenergan) injection 12.5 mg, 12.5 mg, IntraMUSCular, q6h PRN OR promethazine (Phenergan) suppository 12.5 mg, 12.5 mg, Rectal, q6h PRN, Sharyn Amaya MD sodium chloride 0.9 % infusion, 250 mL/hr, IntraVENous, PRN, Omid Orona MD sodium chloride 0.9 % infusion, 250 mL/hr, IntraVENous, PRN, Geno Waddell MD sodium chloride 0.9 % infusion, 250 mL/hr, IntraVENous, PRN, Tomy Hill MD sodium chloride 3 % hypertonic nebulizer solution 4 mL, 4 mL, Nebulization, BID, RENITA Tyler CNP, 4 mL at 06/14/25 0806 stomahesive in petrolatum (ET Mix), , Topical, PRN, RENITA Gtz CNP, Given at 06/08/25 1857 stomahesive in petrolatum (ET Mix), , Topical, 3 times per day, RENITA Gtz CNP, Given at 06/14/25 0137 [4] PRN medications: acetaminophen OR acetaminophen, albumin human, albuterol, dextrose 5 % and sodium chloride 0.45 %, dextrose, dextrose, glucagon (rDNA), glucose, heparin, heparin, heparin, heparin, morphine sulfate, polyethylene glycol (PEG) 3350, promethazine OR promethazine OR promethazine, sodium chloride, sodium chloride, sodium chloride, stomahesive in petrolatum [facility] Nephrology Progress Note Subjective/ 75 y.o. year old female who we are seeing in consultation for ESRD and management of HD. Follows with Dr. Loredo and an outpatient HD schedule M-F at [facility]. 06/06: TDC removed for suspicion of infection 06/08: Temp HD catheter placed by Icu followed by dialysis. 06/12: New TDC placed Laying bed, alert Nods head and attempts to mouth words Chronic trach to vent and PEG Denies pain at new TDC site BP stable, on the low side No LE edema No change in PFSH All data labs/interval notes and overnight issues are reviewed Objective/ Vitals: 06/13/25 1315 06/13/25 1330 06/13/25 1345 06/13/25 1400 BP: (!) 126/49 114/50 (!) 111/46 105/50 Pulse: 63 93 62 54 Resp: Temp: TempSrc: SpO2: Weight: Height: 24HR INTAKE/OUTPUT: Intake/Output Summary (Last 24 hours) at 06/13/2025 1416 Last data filed at 06/13/2025 1400 Gross per 24 hour Intake 1743 ml Output 9498 ml Net -7755 ml Wt Readings from Last 3 Encounters: 06/11/25 104 kg (229 lb 0.9 oz) Constitutional: Awake, obese HEENT: no pallor/cyanosis or icterus Cardiovascular: S1, S2 without m/r/g Respiratory: CTA, B/l equal air entry trach present Abdomen: +bs, soft, Non tender non distended Ext: No LE edema No CVA tenderness Neurologic Alert and oriented; answers questions Psychiatric Calm and cooperative normal modd and affect Neck: supple, no thyroid enlargement, no JVD elevation Skin: warm, moist, no rashes Tunneled HD catheter RIJ. Medications: Scheduled Meds[1] Continuous Infusions:Continuous Meds[2] PRN Meds:PRN Meds[3] Data/ Recent Labs 06/11/25 0552 06/12/25 0550 06/13/25 0433 WBC 7.4 6.9 7.2 HGB 8.3* 7.9* 8.4* HCT 25.8* 25.0* 26.6* MCV 81.6 83.9 83.4 PLT 235 224 235 Recent Labs 06/11/2552 06/12/25 0550 06/13/25 0433 NA 132* 137 134* K 3.9 3.7 3.5 CL 99 98 97* CO2 22* 27 25 GLUCOSE 149* 165* 56* MG -- -- 2.0 BUN 49* 26* 39* CREATININE 4.10* 2.53* 3.37* Albumin: No components found for: "LABALBU" Calcium: Lab Results Component Value Date CALCIUM 9.3 06/13/2025 Ionized Calcium: No components found for: "IONCA" Magnesium: Lab Results Component Value Date MG 2.0 06/13/2025 Phosphorus: No results found for: "PHOS" Assessment/ 75 y.o. female with ESRD N18.6 C. Difficile A04.72 Anemia D63.1 Volume overload E87.70 Hyponatremia E87.1 Chronic respiratory failure J96.10 Diabetes E11.22 Dependence on hemodialysis RECOMMENDATIONS: - HD schedule M- at [facility], follows with Dr. Loredo. 1.6 L removed Wednesday. HD today and will plan to maintain MWF schedule while inpatient -Tunneled line removed last week for infection. New TDC placed yesterday in IR after blood cultures negative. - Anemia -Transfuse to keep Hgb > 7.0 ESRD hgb goal > 10. Iron studies reviewed, DORIS therapy initiated - Okay for Midodrine 10 mg 1 hour prior to iHD for BP support during fluid removal. - Electrolytes improve with dialysis, continue to monitor trends - Avoid nephrotoxins and IV contrast dye - Dose all meds per GFR < 15 - We will follow closely -ID following for management of antibiotics [1] atorvastatin, 40 mg, Per G Tube, Daily busPIRone, 5 mg, Per G Tube, TID carvedilol, 3.125 mg, Per G Tube, BID WC cefepime, 1,000 mg, IntraVENous, q12h epoetin alpha-epbx, 25 Units/kg, SubCUTAneous, Once per day on Wednesday FLUoxetine, 20 mg, Per G Tube, Daily furosemide, 20 mg, Per G Tube, Daily heparin, 5,000 Units, SubCUTAneous, 2 times per day insulin glargine, 25 Units, SubCUTAneous, BID insulin lispro, 0-6 Units, SubCUTAneous, q6h ipratropium-albuterol, 3 mL, Nebulization, q4h miconazole, , Topical, BID midodrine, 10 mg, Per G Tube, TID minocycline, 100 mg, Oral, BID pantoprazole (ProtoNix) 40 mg in sodium chloride (PF) 0.9 % 10 mL injection, 40 mg, IntraVENous, Nightly sodium chloride, 4 mL, Nebulization, BID stomahesive in petrolatum, , Topical, 3 times per day [2] [3] PRN medications: acetaminophen OR acetaminophen, albumin human, albuterol, dextrose 5 % and sodium chloride 0.45 %, dextrose, dextrose, glucagon (rDNA), glucose, heparin, heparin, heparin, heparin, morphine sulfate, polyethylene glycol (PEG) 3350, promethazine OR promethazine OR promethazine, sodium chloride, sodium chloride, sodium chloride, stomahesive in petrolatum Cosigned by Coleman Toney MD at 06/13/2025 10:46 PM EDT Associated attestation - Cloeman Toney MD - 06/13/2025 10:46 PM EDT I have reviewed the above assessment and plan with the FULL STACK DEVELOPER. I agree with above note. [facility] Hospitalist Progress note [phone]: Please page me ([phone]) for patient care issues. [phone]: Please page [facility] Hospitalist for any issues. Subjective: Admit Date: 06/01/2025 PCP: No primary care provider on file. Room#: 222-04/222-04 José Miguel Myers is a 75 y.o. female who presents with Anemia Interval History: No sob, cough, n/v. Tolerating tube feeds. Discussed with RYNE Agee, separately Diet, tube feeding no tray PEG; Nepro w/CARB Steady; Continuous; No; 40; 40 24HR INTAKE/OUTPUT: Intake/Output Summary (Last 24 hours) at 06/13/2025 1640 Last data filed at 06/13/2025 1536 Gross per 24 hour Intake 2043 ml Output 36712 ml Net -96051 ml LABS: CBC: Recent Labs 06/11/25 0552 06/12/25 0550 06/13/25 0433 WBC 7.4 6.9 7.2 RBC 3.16* 2.98* 3.19* HGB 8.3* 7.9* 8.4* HCT 25.8* 25.0* 26.6* MCV 81.6 83.9 83.4 RDW 18.0* 18.3* 17.8* PLT 235 224 235 BMP: Recent Labs 06/11/25 0552 06/12/25 0550 06/13/25 0433 NA 132* 137 134* K 3.9 3.7 3.5 CL 99 98 97* CO2 22* 27 25 BUN 49* 26* 39* CREATININE 4.10* 2.53* 3.37* GLUCOSE 149* 165* 56* CALCIUM 9.2 8.7* 9.3 ANIONGAP 11 12 12 LIVER PROFILE: Recent Labs 06/11/25 0552 06/12/25 0550 06/13/25 0433 AST 26 21 22 ALT 12 9 12 BILITOT 0.8 0.7 0.8 ALKPHOS 117 115 127 PROT 6.6 6.4 6.8 PT/INR: No results for input(s): "PROTIME", "INR" in the last 72 hours. CARDIAC ENZYMES: No results for input(s): "TROPONINI" in the last 72 hours. Procalcitonin: No results found for: "PROCAL" @RISRSLTSPECIALTY@ Objective: Vitals: BP (!) 115/45 Pulse 62 Temp 36.7 C (98.1 F) (Oral) Resp 20 Ht 5' 5" (1.651 m) Wt 229 lb 0.9 oz (104 kg) SpO2 100% BMI 38.12 kg/m Pulse Ox: SpO2 Av % Min: 91 % Max: 100 % Supplemental O2: 06/13/2025 General appearance: No apparent distress, appears stated age, AAOX3 Oral: Tongue is semi-moist Cardiovascular: S1/S2 heard, RRR Respiratory: Clear to auscultation bilaterally, tracheostomy site red and inflamed Abdomen: Soft, non-tender, non-distended bowel sounds positive Musculoskeletal: Bilateral venous stasis changes Skin: Tunneled line removed, dressing in place, no redness or erythema Medications: Continuous Meds[1] Scheduled Meds[2] Assessment Acute on chronic anemia Chronic bilateral pleural effusions Pneumonia Chronic respiratory failure tracheostomy dependent Concern for tunneled line infection C. difficile infection Hypokalemia Pressure ulcers present on admission ESRD on HD chronic heart failure Severe malnutrition GERD Anxiety Depression Type 2 diabetes Chronic candidiasis Neuropathy Plan Continue present tx, continue antibiotics, ID and Pulmonology and Wound Care and Nephrology following, follow up cultures, determine antibiotic route and length, continue HD, POCT, SS insulin, continue tube feeds, follow up labs, discharge planning, see orders -am labs, replace lytes prn -increase activity Diet Diet, tube feeding no tray PEG; Nepro w/CARB Steady; Continuous; No; 40; 40 DVT Prophylaxis [] Lovenox, [x] Heparin, [] SCDs, [] Ambulation [] Already on Anticoagulation GI Prophylaxis [] PPI, [] H2 Herb, [] Carafate, [] Diet/Tube Feeds Code Status Full Code MDM [] Low, [] Moderate,[x] High Patient's risk as above Anticipated Discharge - Date -06/14-06/16 - Location - Skilled Facility - Pending the following -antibiotic finalization and when OK with consultants Total time spent (which include face to face and non face to face encounters) : 45 minutes Toxic drug monitoring/narrow therapeutic index drug monitoring : # Drug name : SS insulin and heparin # Route administered : subcutaneous and subcutaneous # Method of monitoring : Q6hr BG/daily BMP/hypoglycemia protocol and daily CBC No emergency contact information on file. Advance Directive: Full Code Discharge planning: TBD Robert Jimenez [facility] [1] [2] atorvastatin, 40 mg, Per G Tube, Daily busPIRone, 5 mg, Per G Tube, TID carvedilol, 3.125 mg, Per G Tube, BID WC cefepime, 1,000 mg, IntraVENous, q12h epoetin alpha-epbx, 25 Units/kg, SubCUTAneous, Once per day on Wednesday FLUoxetine, 20 mg, Per G Tube, Daily furosemide, 20 mg, Per G Tube, Daily heparin, 5,000 Units, SubCUTAneous, 2 times per day insulin glargine, 25 Units, SubCUTAneous, BID insulin lispro, 0-6 Units, SubCUTAneous, q6h ipratropium-albuterol, 3 mL, Nebulization, q4h miconazole, , Topical, BID midodrine, 10 mg, Per G Tube, TID minocycline, 100 mg, Oral, BID pantoprazole (ProtoNix) 40 mg in sodium chloride (PF) 0.9 % 10 mL injection, 40 mg, IntraVENous, Nightly sodium chloride, 4 mL, Nebulization, BID stomahesive in petrolatum, , Topical, 3 times per day Images from the original note were not included. [facility] [place] [address] [place] [id number] Patient - Rosa Myers, Age - 75 y.o. - 1950 Room Number - 222-04/222-04 A Consulting - Robert Jimenez MD Primary Care Physician - No [facility] care provider [facility] file[id number] Date of Admission - 06/01/2025 10:53 AM Hospital Day - 12 Problem List[1] Chief Complaint: Jose Maria Myers is a 75 y.o. female who pulmonary is following for VDRF Subjective/Interval History: Patient resting comfortably in bed. Stable on vent with home settings. Per nursing notes patient triggered vent alarms for high expiratory volumes yesterday evening. Patient received dose of morphine and ativan. No respiratory complaints this morning. Secretions improved per RT. Vent settings: Mode A/C VC+, RR 14, Vt 450, 30% FiO2, PEEP 5 cm H2O A pertinent review of systems was performed and was otherwise non-contributory except as detailed in Subjective section above. Objective: Vitals: BP 137/91 Pulse 62 Temp 36.8 C (98.2 F) (Oral) Resp 22 Ht 5' 5" (1.651 m) Wt 229 lb 0.9 oz (104 kg) SpO2 100% BMI 38.12 kg/m Pulse Ox: SpO2 Av.9 % Min: 91 % Max: 100 % Supplemental O2: 30% FiO2 on Vent. I/O 24HR INTAKE/OUTPUT: Intake/Output Summary (Last 24 hours) at 06/13/2025 1109 Last data filed at 06/13/2025 0623 Gross per 24 hour Intake 1743 ml Output 0 ml Net 1743 ml Physical Exam:unchanged compared to 06/07 Physical Exam Vitals and nursing note reviewed. Constitutional: General: She is not in acute distress. Comments: Chronically ill appearing Neck: Trachea: Tracheostomy present. Cardiovascular: Rate and Rhythm: Normal rate and regular rhythm. Pulmonary: Effort: Pulmonary effort is normal. No respiratory distress. Breath sounds: Rhonchi present. No wheezing or rales. Comments: Chronic vent dependence Chest: Comments: Right tunneled HD catheter in place Musculoskeletal: Right lower leg: No edema. Left lower leg: No edema. Skin: General: Skin is warm and dry. Coloration: Skin is not jaundiced. Findings: No lesion or rash. Neurological: Mental Status: Mental status is at baseline. Psychiatric: Mood and Affect: Mood normal. Behavior: Behavior normal. Behavior is cooperative. Medications: Allergies[2] Current Medications[3] PRN Meds[4] Labs: CBC: Recent Labs 06/11/25 0552 06/12/25 0550 06/13/25 0433 WBC 7.4 6.9 7.2 HGB 8.3* 7.9* 8.4* HCT 25.8* 25.0* 26.6* PLT 235 224 235 MCV 81.6 83.9 83.4 RDW 18.0* 18.3* 17.8* BMP: Recent Labs 06/11/25 0552 06/12/25 0550 06/13/25 0433 NA 132* 137 134* K 3.9 3.7 3.5 CL 99 98 97* CO2 22* 27 25 BUN 49* 26* 39* CREATININE 4.10* 2.53* 3.37* CALCIUM 9.2 8.7* 9.3 MG -- -- 2.0 LFTs: Recent Labs 06/11/25 0552 06/12/25 0550 06/13/25 0433 AST 26 21 22 ALT 12 9 12 PROT 6.6 6.4 6.8 ALBUMIN 2.3* 2.2* 2.3* BILITOT 0.8 0.7 0.8 ALKPHOS 117 115 127 Glucose: Recent Labs 06/11/25 0552 06/11/25 0612 06/12/25 0037 06/12/25 0540 06/12/25 0550 06/12/25 1238 06/12/25 1746 06/12/25 2221 06/13/25 0020 06/13/25 0433 06/13/25 0516 06/13/25 0543 GLUCOSE 149* -- -- -- 165* -- -- -- -- 56* -- -- POCGLU -- < > 166* 171* -- 165* 147* 157* 123* -- 67* 122* < > = values in this interval not displayed. Pleural fluid 06/07/25: Lab Results Component Value Date LDHFL 91 06/07/2025 PROTEINFL 3.9 06/07/2025 FLUIDTYPE Pleural Fluid 06/07/2025 FLUIDTYPE Pleural Fluid 06/07/2025 LDH 213 06/08/2025 PROT 6.8 06/13/2025 ALBUMIN 2.3 (L) 06/13/2025 Microbiology: + C difficile Blood cultures: NGTD Dialysis catheter tip: + Serratia marcescens Sputum culture: + Serratia marcescens, Stenotrophomonas maltophilia & Pseudomonas aeruginosa Imaging/ Testing: CXR 06/08/25: IMPRESSION: Lines, tubes, and devices:Interval placement a right IJ approach central venous catheter with tip projecting over the SVC. Tracheostomy tube again projects over the trachea. Lungs and pleura:Prominence of the central pulmonary vasculature without overt pulmonary edema. Hazy bibasilar opacities likely small pleural effusions with associated atelectasis. Superimposed infectious/inflammatory process is not entirely excluded. No interval pneumothorax. Cardiomediastinal silhouette: Stable enlarged cardiac silhouette.Atherosclerotic calcifications of the aortic arch Other: Degenerative changes of the spine and acromioclavicular joints. Assessment and Plan/Recommendations: Chronic respiratory failure with hypoxia. Ventilator dependence Tracheostomy dependence Hx bilateral pleural effusions, transudate Possible PNA- polymicorbial respiratory tract infections. ESRD with pulmonary edema Anemia + C Diff S/p left thoracentesis with removal of 600 ml dacosta fluid, borderline exudate. Culture NGTD. Follow up CXR with small effusions, atelectasis Continue fluid removal via HD. New tunneled HD catheter placed this morning. Management as per Nephrology (M/W/F) Sputum culture + Serratia, Stenotrophomonas and Pseudomonas. ID recommending 2 weeks of Cefepime through 06/21 and Minocycyline x 10 days. Continue DuoNeb's, Hypertonic saline aerosols Respiratory status stable on vent. Continue home settings. No plans for weaning. Routine trach care & pulmonary hygiene Advance Directive: Full Code Discharge planning: Patient remains stable to discharge back to [facility] from pulmonary standpoint Case discussed with nurse and patient Questions and concerns addressed. [1] Patient Active Problem List Diagnosis Anemia Anemia, unspecified type Moderate malnutrition (CMS/HCC) (HCC) [2] No Known Allergies [3] Current Facility-Administered Medications: acetaminophen (Tylenol) tablet 650 mg, 650 mg, Oral, q6h PRN OR acetaminophen (Tylenol) suppository 650 mg, 650 mg, Rectal, q6h PRN, Sharyn Amaya MD albumin human 5 % IV solution 25 g, 25 g, IntraVENous, TID PRN, Rad Acosta MD albuterol (2.5 MG/3ML) 0.083% nebulizer solution 2.5 mg, 2.5 mg, Nebulization, q6h PRN, RENITA Tyler CNP atorvastatin (Lipitor) tablet 40 mg, 40 mg, Per G Tube, Daily, Grzegorz Chatterjee MD, 40 mg at 06/12/25 0950 busPIRone (Buspar) tablet 5 mg, 5 mg, Per G Tube, TID, Grzegorz Chatterjee MD, 5 mg at 06/12/25 2200 carvedilol (Coreg) tablet 3.125 mg, 3.125 mg, Per G Tube, BID WC, Raine Etienne MD, 3.125 mg at 06/12/25 1632 cefepime (Maxipime) 1,000 mg in sodium chloride 0.9 % 50 mL IVPB, 1,000 mg, IntraVENous, q12h, Geno Waddell MD, Stopped at 06/13/25 0555 dextrose 5 % and sodium chloride 0.45 % bolus 500 mL, 500 mL, IntraVENous, TID PRN, Rad Acosta MD dextrose 5 % infusion, 100 mL/hr, IntraVENous, PRN, Sharyn Amaya MD, Stopped at 06/02/25 1757 dextrose 50 % solution 12.5 g, 12.5 g, IntraVENous, PRN, Sharyn Amaya MD, 12.5 g at 06/13/25 0524 epoetin jenn-epbx (Retacrit) injection 2,600 Units, 25 Units/kg, SubCUTAneous, Once per day on Wednesday, RENITA Clifford CNP FLUoxetine (PROzac) capsule 20 mg, 20 mg, Per G Tube, Daily, Grzegorz Chatterjee MD, 20 mg at 06/12/25 0950 furosemide (Lasix) tablet 20 mg, 20 mg, Per G Tube, Daily, Grzegorz Chatterjee MD, 20 mg at 06/12/25 0950 glucagon (human recombinant) injection 1 mg, 1 mg, IntraMUSCular, PRN, Sharyn Amaya MD glucose oral gel 15 g, 15 g, Oral, PRN, Sharyn Amaya MD heparin injection 1,200-2,000 Units, 1,200-2,000 Units, IntraCATHeter, PRN, iM Singh APRN - METALLURGIST HELPER, 1,400 Units at 06/11/25 1404 heparin injection 1,200-2,000 Units, 1,200-2,000 Units, IntraCATHeter, PRN, Mi Singh APRN - METALLURGIST HELPER, 1,400 Units at 06/11/25 1402 heparin injection 1,200-2,000 Units, 1,200-2,000 Units, IntraCATHeter, PRN, Yamil Newby MD heparin injection 1,200-2,000 Units, 1,200-2,000 Units, IntraCATHeter, PRN, Yamil Newby MD heparin injection 5,000 Units, 5,000 Units, SubCUTAneous, 2 times per day, Sharyn Amaya MD, 5,000 Units at 06/12/252158 insulin glargine (Lantus) injection 25 Units, 25 Units, SubCUTAneous, BID, Sharyn Amaya MD, 25 Units at 06/12/252158 Insulin Lispro (Humalog) injection 0-6 Units, 0-6 Units, SubCUTAneous, q6h, Grzegorz Chatterjee MD, 1 Units at 06/12/25 1318 ipratropium-albuterol (Duo-Neb) 0.5-2.5 mg/3 mL nebulizer solution 3 mL, 3 mL, Nebulization, q4h, Neelima Hanks APRN - METALLURGIST HELPER, 3 mL at 06/13/25 0955 miconazole (Micotin) 2 % powder, , Topical, BID, Patrica Weinstein APRN - RENEE, Given at 06/12/25 222 midodrine (Proamatine) tablet 10 mg, 10 mg, Per G Tube, TID, Grzegorz Chatterjee MD, 10 mg at 06/12/25 2200 minocycline capsule 100 mg, 100 mg, Oral, BID, Kishore Wolff MD morphine injection 1 mg, 1 mg, IntraVENous, q4h PRN, Geno Waddell MD, 1 mg at 06/12/25 2216 pantoprazole (ProtoNix) 40 mg in sodium chloride (PF) 0.9 % 10 mL injection, 40 mg, IntraVENous, Nightly, Grzegorz Chatterjee MD, 40 mg at 06/12/25 2200 polyethylene glycol (PEG) 3350 (Miralax) packet 17 g, 17 g, Oral, Daily PRN, Sharyn Amaya MD promethazine (Phenergan) tablet 12.5 mg, 12.5 mg, Oral, q6h PRN OR promethazine (Phenergan) injection 12.5 mg, 12.5 mg, IntraMUSCular, q6h PRN OR promethazine (Phenergan) suppository 12.5 mg, 12.5 mg, Rectal, q6h PRN, Sharyn Amaya MD sodium chloride 0.9 % infusion, 250 mL/hr, IntraVENous, PRN, Omid Orona MD sodium chloride 0.9 % infusion, 250 mL/hr, IntraVENous, PRN, Geno Waddell MD sodium chloride 0.9 % infusion, 250 mL/hr, IntraVENous, PRN, Tomy Hill MD sodium chloride 3 % hypertonic nebulizer solution 4 mL, 4 mL, Nebulization, BID, RENITA Tyler CNP, 4 mL at 06/13/25 1008 stomahesive in petrolatum (ET Mix), , Topical, PRN, RENITA Gtz CNP, Given at 06/08/25 1857 stomahesive in petrolatum (ET Mix), , Topical, 3 times per day, RENITA Gtz CNP, Given at 06/13/25 0525 [4] PRN medications: acetaminophen OR acetaminophen, albumin human, albuterol, dextrose 5 % and sodium chloride 0.45 %, dextrose, dextrose, glucagon (rDNA), glucose, heparin, heparin, heparin, heparin, morphine sulfate, polyethylene glycol (PEG) 3350, promethazine OR promethazine OR promethazine, sodium chloride, sodium chloride, sodium chloride, stomahesive in petrolatum [facility] Respiratory Care Department Progress Note Spontaneous Awakening Trial Wean Screen SpO2>/=88%: Yes (06/13/251013) FiO2</=50%: Yes (06/13/251013) PEEP </=8cmH2O: Yes (06/13/251013) HR <140 BPM: Yes (06/13/251013) RR </= 35 breaths/min: Yes (06/13/251013) MAP >/= 65mmHg: Yes (06/13/251013) Arterial pH >7.30: Yes (06/13/251013) Safety Screen Spontaneous Breathing Trial (SBT - RT) : SBT Held - Chronic Ventilator Dependent (06/13/251013) Spontaneous Breathing Trial Vent Settings Vent Mode: Assist control (06/13/251013) Mandatory Type: VC+ (06/13/251013) Resp Rate (Set): 14 (06/13/251013) Vt (Set, mL): 450 mL (06/13/251013) FiO2 (%): 30 % (06/13/251013) PEEP/CPAP (cm H2O): 5 cm H20 (06/13/251013) Inspiratory Time (sec): 0.9 sec (06/13/251013) Vitals MAP (mmHg): 107 (06/13/252) Heart Rate: 62 (06/13/251013) Resp: 22 (06/13/25423) SpO2: 100 % (06/13/251013) Suctioning/Secretions Secretion Amount: Moderate (06/13/25423) Secretion Color: White, Yellow (06/13/25423) Secretion Consistency: Thick (06/13/25423) ABG results No results for input(s): "PHART", "TQA2SBV", "PO2ART", "LHO4NMT", "SO2ART", "T8FNXUPZ" in the last 72 hours. Does this patient meet criteria for termination of mechanical ventilation No - Chronic Vent Dependent Name of physician notified via secure chat or in person : (NA if patient did not meet criteria) Comments: per neelima Hanks pt. Is vent dependent Thank you for involving Res[facility] in the care of this patient, Images from the original note were not included. [facility] - Infectious Diseases Attending Progress Note Subjective: Follow up for pneumonia due to Pseudomonas aeruginosa, Serratia marcescens, and stenotrophomonas maltophilia, CDAD, infected HD catheter due to Serratia marcescens-s/p removal of cath on 06/06/25 and chronic respiratory failure, ventilator dependence. She was alert, laying on bed, nods head and attempts to mouth words; denied fever, abdominal pain, SOB, she underwent left thoracentesis on 06/07, she appeared debilitated and ill. She was admitted on 06/01/25 with low hemoglobin (6.5), increased tracheal secretion, diarrhea and weakness; she was found to have C diff associated diarrhea; on 06/06/25, she was found to have redness on right chest HD catheter with tenderness and the catheter was removed, blood cxs were obtained on 06/07/25. She has h/o chronic tracheostomy and on vent therapy, PEG tube feeding, ESRD on hemodialysis, hypertension, hyperlipidemia coronary artery disease status post PCI with stent in September 2023, type 2 diabetes mellitus with polyneuropathy, chronic CHF. She was examined; notes, labs, imaging were reviewed; treatment plan was discussed; clinical informations were documented in electronic record. Objective: Vitals: Patient Vitals for the past 24 hrs: BP Temp Temp src Pulse Resp SpO2 06/13/25 0424 -- -- -- 69 22 100 % 06/13/25 0403 -- -- -- 74 -- 100 % 06/13/25 0402 137/91 -- -- -- -- -- 06/13/25 0003 127/96 -- -- 78 -- 98 % 06/12/257 -- -- -- 72 (!) 30 91 % 06/12/252019 -- -- -- 64 17 99 % 06/12/252011 -- -- -- 64 22 100 % 06/12/252002 118/51 36.8 C (98.2 F) Oral 66 24 100 % 06/12/25 1644 -- -- -- 61 -- 96 % 06/12/25 1643 -- -- -- 61 16 94 % 06/12/25 1602 130/51 37.1 C (98.8 F) Oral 61 18 96 % 06/12/25 1202 132/56 36.8 C (98.3 F) Oral 68 20 97 % 06/12/25 0951 (!) 124/45 -- -- 69 -- -- 06/12/25 0935 128/51 -- -- 66 17 96 % 06/12/25 0930 (!) 128/48 -- -- 70 23 95 % 06/12/25 0925 130/56 -- -- 66 21 96 % 06/12/25 0920 (!) 125/49 -- -- 69 22 95 % 06/12/25 0915 126/50 -- -- 70 20 97 % 06/12/25 0910 134/50 -- -- 71 18 97 % 06/12/25 0905 136/55 -- -- 71 18 97 % Physical Exam Vitals and nursing notes reviewed. Constitutional: Appearance: She is obese, debilitated and chronically ill-appearing. HENT: Head: Normocephalic, without obvious abnormality, atraumatic. Neck: Trachea: Tracheostomy present. Comments: on vent Cardiovascular: Rate and Rhythm: Regular rhythm. Tachycardia present. Pulses: Normal pulses. Heart sounds: Normal heart sounds, S1 normal and S2 normal. Pulmonary: Effort: Pulmonary effort is normal. Breath sounds: Diminished breath sounds. Rales present. No wheezing or rhonchi. Comments: On Vent AC/VC Abdominal: Palpations: Abdomen is soft. non-tender, nondistended. Bowel sounds normal. Musculoskeletal: General: Swelling present. Skin: Comments: Multiple pressure wounds on the coccyx, sacrum and lower extremity. Neurological: No focal deficits, cranial nerves grossly intact, sensations intact Psychiatric : Mood and effect normal , alert and oriented times 3. Labs: Recent Labs 06/11/25 0552 06/12/25 0550 06/13/25 0433 NA 132* 137 134* K 3.9 3.7 3.5 CL 99 98 97* CO2 22* 27 25 BUN 49* 26* 39* CREATININE 4.10* 2.53* 3.37* GLUCOSE 149* 165* 56* CALCIUM 9.2 8.7* 9.3 PROT 6.6 6.4 6.8 BILITOT 0.8 0.7 0.8 ALKPHOS 117 115 127 AST 26 21 22 ALT 12 9 12 Recent Labs 06/11/25 0552 06/12/25 0550 06/13/25 0433 WBC 7.4 6.9 7.2 HGB 8.3* 7.9* 8.4* HCT 25.8* 25.0* 26.6* PLT 235 224 235 LYMPHOPCT -- -- 15.5 MONOPCT -- -- 10.1 BASOPCT -- -- 0.8 NEUTROABS -- -- 5.0 Micro: No results for input(s): "COVID19" in the last 72 hours. Collected Updated Procedure Result Status 06/07/2025 1129 06/07/2025 1142 Aerobic and Anaerobic Culture with Stain [[id number]] Body Fluid from Pleural Cavity, Left In process Component Value No component results 06/07/2025 1129 06/09/2025 0748 Culture, Aerobic Bacteria with Gram Stain [[id number]] Body Fluid from Pleural Cavity, Left Preliminary result Component Value Culture No growth at 48 hours P Gram Stain Result Few Polymorphonuclear leukocytes per low power field P No organisms seen P 06/07/2025 1129 06/07/2025 1142 Anaerobic culture [[id number]] Body Fluid from Pleural Cavity, Left In process Component Value No component results 06/07/2025 1025 06/09/2025 1301 Blood culture Site #2 - Suspected Infection [[id number]] Blood, Venous Preliminary result Component Value Blood Culture No growth at 48 hours P 06/07/2025 1014 06/09/2025 1301 Blood culture Site #1 - Suspected Infection [[id number]] Blood, Venous Preliminary result Component Value Blood Culture No growth at 48 hours P 06/06/2025 1732 06/08/2025 1413 Respiratory culture and Stain [[id number]] (Abnormal) Sputum Preliminary result Component Value Respiratory culture Few respiratory dave present. P Moderate Serratia marcescens Abnormal P Moderate Stenotrophomonas maltophilia Abnormal P Moderate Pseudomonas aeruginosa Abnormal P Gram Stain Result Many Polymorphonuclear leukocytes per low power field Abnormal P Rare Epithelial cells per low power field Abnormal P Moderate Gram negative bacilli Abnormal P Few Gram positive bacilli Abnormal P Rare Gram positive cocci Abnormal P 06/06/2025 1732 06/07/2025 1158 Pneumonia PCR Panel [[id number]] (Abnormal) Sputum Final result Component Value Staphylococcus aureus Not Detected Streptococcus agalactiae Not Detected Streptococcus pneumoniae Not Detected Streptococcus pyogenes Not Detected Haemophilus influenzae Not Detected Moraxella catarrhalis Not Detected Acinetobacter baumannii complex Not Detected Enterobacter cloacae complex Not Detected Escherichia coli Not Detected Klebsiella (Enterobacter) aerogenes Not Detected Klebsiella oxytoca Not Detected Klebsiella pneumoniae Not Detected Proteus spp Detected Abnormal Pseudomonas aeruginosa Detected Abnormal Serratia marcescens Detected Abnormal Chlamydia pneumoniae Not Detected Legionella pneumophila Not Detected Mycoplasma pneumoniae Not Detected Adenovirus Not Detected Coronavirus Not Detected Human Metapneumovirus Not Detected Human Rhinovirus/Enterovirus Not Detected Influenza A Not Detected Influenza B Not Detected Parainfluenza virus Not Detected Respiratory Syncytial Virus Not Detected 06/06/2025 1429 06/09/2025 0801 Culture, Cath Tip [[id number]] (Abnormal) Foreign Body from Cannula Final result Component Value Culture >15 CFU Serratia marcescens Abnormal This organism possesses an ampC beta-lactamase. For serious infections outside of the urinary tract, third generation cephalosporins may not be effective, even if test results indicate the organism is susceptible. 06/02/2025173506/02/2025 205 Gastrointestinal PCR Panel [[id number]] Stool from Per Rectum Final result Component Value Campylobacter Not Detected Plesiomonas shigelloides Not Detected Salmonella Not Detected Vibrio species Not Detected Vibrio cholerae Not Detected Yersinia enterocolitica Not Detected Enterotoxigenic E coli (ETEC) Not Detected Shiga toxin-producing E coli (STEC) Not Detected Shigella/Enteroinvasive E coli (EIEC) Not Detected Cryptosporidium Not Detected Cyclospora cayetanensis Not Detected Entamoeba histolytica Not Detected Giardia lamblia Not Detected Adenovirus F 40/41 Not Detected Astrovirus Not Detected Norovirus GI/GII Not Detected Rotavirus A Not Detected Sapovirus Not Detected 06/02/2025173506/02/20251954 C. DIFFICILE by PCR with Reflex to EIA [[id number]] (Abnormal) Stool from Per Rectum Final result Component Value C. difficile toxin PCR Detected Abnormal 06/02/20256 06/02/2025 2208 C. difficile Toxins EIA [[id number]] (Abnormal) Stool from Per Rectum Final result Component Value C difficile Toxins A+B, EIA Positive Abnormal Lines: RIJ HD cath (06/12/25) Radiography/Echo/Other: XR chest 1 view [[id number]] Collected: 06/08/25 1402 Order Status: Completed Updated: 06/08/251404 Narrative: Patient Name: ROSA MYERS : 1950 Exam Date/Time: 06/08/2025 13:40 Procedure: XR CHEST 1 VIEW Ordering Provider: FRANCOIS KELLY Reason For Exam: cvc placement EXAMINATION: CHEST RADIOGRAPH (SINGLE VIEW AP OR PA) Clinical History: cvc placement Comparison: Radiograph 06/06/2025 RESULT: See impression Impression: Lines, tubes, and devices:Interval placement a right IJ approach central venous catheter with tip projecting over the SVC. Tracheostomy tube again projects over the trachea. Lungs and pleura:Prominence of the central pulmonary vasculature without overt pulmonary edema. Hazy bibasilar opacities likely small pleural effusions with associated atelectasis. Superimposed infectious/inflammatory process is not entirely excluded. No interval pneumothorax. Cardiomediastinal silhouette: Stable enlarged cardiac silhouette.Atherosclerotic calcifications of the aortic arch Other: Degenerative changes of the spine and acromioclavicular joints. Report Dictated on Electronically Signed By: Timbo Mojica MD Electronically Signed Date/Time: 06/08/2025 2:04 PM EDT US guided thoracentesis [[id number]] Collected: 06/07/25 1409 Order Status: Completed Updated: 06/07/25 1410 Narrative: Patient Name: ROSA MYERS : 1950 Exam Date/Time: 06/07/2025 11:01 Procedure: US GUIDED THORACENTESIS Ordering Provider: WADDELL CANDICE Reason For Exam: pleural effusion PROCEDURE: Ultrasound-guided left thoracentesis PROCEDURAL PERSONNEL Advanced Practice Provider: Yoana Hayes PA-C Attending physician, Omid Gottlieb M.D., was available in the department if needed. Indication: Pleural effusion Additional clinical history: None Complications: No immediate complications. Impression: Successful ultrasound-guided left thoracentesis with drainage of 600 milliliters of dacosta fluid. PROCEDURE SUMMARY: - Limited thoracic ultrasound - Ultrasound-guided thoracentesis - Additional procedure(s): None PROCEDURE DETAILS: Pre-procedure Consent: Informed consent for the procedure including risks, benefits and alternatives was obtained and time-out was performed prior to the procedure. Preparation: The site was prepared and draped using maximal sterile barrier technique including cutaneous antisepsis. Anesthesia/sedation None Limited thoracic ultrasound Limited thoracic ultrasound was performed using a curved transducer. A safe window for thoracentesis was identified. Moderate to large pleural effusion was seen on the side of aspiration. The contralateral side was not investigated. Thoracentesis Local anesthesia was administered. Ultrasound was used to pick a safe access site. A permanent image was stored. The pleural space was accessed and fluid return confirmed position. The fluid was drained. Catheter placed: 5F Yueh Closure The catheter was removed. A sterile bandage was applied. Post-drainage hemithorax findings: Minimal effusion Additional Details Additional description of procedure: None Equipment details: None Specimens removed: Pleural fluid Estimated blood loss (mL): Less than 10 Report Dictated on Electronically Signed By: Yoana Hayes PA-C Electronically Signed Date/Time: 06/07/2025 2:09 PM EDT XR chest 1 view [[id number]] Collected: 06/06/252039 Order Status: Completed Updated: 06/06/252042 Narrative: Patient Name: ROSA MYERS : 1950 Exam Date/Time: 06/06/2025 19:54 Procedure: XR CHEST 1 VIEW Ordering Provider: WADDELL CANDICE Reason For Exam: increased secretions INDICATION: Increased secretions. Tunneled dialysis catheter removal same day. VIEWS: Portable AP upright chest COMPARISON: 06/01/2025 FINDINGS: A tracheostomy overlies the midline. The trachea is midline. The cardiomediastinal silhouette is mildly enlarged. The lung volumes are low. There is mild thickening of the interstitium. Bilateral layering pleural effusions are present. Impression: 1. Interval increase in bilateral layering pleural effusions. 2. Interval increase in interstitial edema and/or infiltrates. Report Dictated on Electronically Signed By: Cindy Joyner MD Electronically Signed Date/Time: 06/06/2025 8:41 PM EDT IR CVC tunneled catheter removal [[id number]] Collected: 06/06/25 154 Order Status: Completed Updated: 06/06/251546 Narrative: Patient Name: ROSA MYERS : 1950 Exam Date/Time: 06/06/2025 14:01 Procedure: IR CVC TUNNELED CATHETER REMOVAL Ordering Provider: WADDELL CANDICE Reason For Exam: erythema and redness EXAMINATION: Tunneled dialysis catheter removal. EXAM DATE & TIME: 06/06/2025 2:01 PM EDT INDICATION: erythema and redness ADDITIONAL INFORMATION: 75-year-old female with clinical suspicion for line infection presents for removal COMPARISON: None INFORMED CONSENT: Written informed consent was obtained. The procedure, risks, benefits, and alternatives were discussed. All questions were answered. While not present during the procedure, Dr. Fam was immediately available to furnish services throughout the procedure. TIMEOUT: Timeout was conducted documenting correct patient, procedure, site, fire risk, antibiotics and allergies. COMPLICATIONS: None. ESTIMATED BLOOD LOSS: Less than 10 mL. MEDICATIONS: Antibiotics: None. Contrast dose: None. STERILE TECHNIQUE: All elements of maximal sterile technique were applied: cap, mask, sterile gown, proper hand hygiene including sterile gloves, a large sterile sheet, and hospital-approved cutaneous antisepsis at the site (2% chlorhexidine). ANESTHESIA/SEDATION: Local. PROCEDURE/TECHNIQUE: The patient was placed in the supine position on the procedural table. The skin surrounding the right chest tunneled dialysis catheter was prepped and draped in the usual aseptic fashion. Local anesthesia was achieved with 1% lidocaine solution. Using a combination of blunt dissection and gentle traction, the catheter was removed in its entirety. A sterile dressing was applied. The patient tolerated the procedure well without immediate complication and was transferred from the interventional suite in stable condition. FINDINGS: No images were obtained during catheter removal. Impression: Technically successful uncomplicated removal of right chest tunneled dialysis catheter in its entirety. Report Dictated on Electronically Signed By: Anjum Fam MD Electronically Signed Date/Time: 06/06/2025 3:46 PM EDT XR chest 1 view [[id number]] Collected: 06/01/25 1217 Order Status: Completed Updated: 06/01/25 1220 Narrative: Patient Name: ROSA MYERS : 1950 Exam Date/Time: 06/01/2025 11:50 Procedure: XR CHEST 1 VIEW Ordering Provider: ORONA KEVIN Reason For Exam: ABDOMINAL PAIN; dyspnea CHEST X-RAY AP CLINICAL INDICATION: Dyspnea AP radiograph of the chest was obtained. COMPARISON: None FINDINGS: Right-sided tunneled dialysis catheter line with its tip overlying the expected SVC location. The cardiac silhouette is within normal limits. Findings consistent with pulmonary edema/vascular congestion. Bilateral pleural effusions with associated atelectasis/consolidative changes. Thoracic spine degenerative changes. Impression: Findings consistent with pulmonary edema/vascular congestion. Bilateral pleural effusions with associated atelectasis/consolidative changes. Report Dictated on Electronically Signed By: Peter Melvin MD Electronically Signed Date/Time: 06/01/2025 12:19 PM EDT Antimicrobials, Start/End Dates: Cefep 06/07- Fidaxo 06/03- Minocycline 06/13- Impression: Pneumonia due to Pseudomonas aeruginosa, Serratia marcescens, and stenotrophomonas maltophilia. CDAD. Treated. Infected HD catheter due to Serratia marcescens-s/p removal of cath on 06/06/25. Chronic respiratory failure, ventilator dependence. Pleural effusion, s/p thoracentesis on 06/07/25. Cx -neg. Trach and PEG. ESRD, on HD. Plan: Pt presented due to multiple infectious processes, including polymicrobial pneumonia, CDAD, infected HD catheter. Afebrile, hemodynamically ok. Blood and pleural fluid cxs -neg. She completed CDAD treatment on 06/12. She is trached and vent dependent. No leukocytosis. Continue cefepime for a total of 2 weeks, through 06/21/25. Start minocycline for 10 days. Opat in chart. Moderate level complexity medical decision making. Please call with any further question. Total time of 35 minutes on this day of encounter spent on, but not limited to review of tests, medical records , complex history , review of external medical records, paper and electronic, counseling and education (patient, family member, caregiver), ordering medications, tests, and procedures, communication with other health care professions, independent interpretation of tests, care coordination, arrangement of outpatient antimicrobial therapy, post-hospitalization therapy and follow-up, and counseling for risks, benefits, and consideration of use of antimicrobials. [facility] Respiratory Care Department Progress Note Spontaneous Awakening Trial Wean Screen SpO2>/=88%: Yes (06/13/25423) FiO2</=50%: Yes (06/13/25423) PEEP </=8cmH2O: Yes (06/13/25423) HR <140 BPM: Yes (06/13/25423) RR </= 35 breaths/min: Yes (06/13/25423) MAP >/= 65mmHg: Yes (06/13/25423) Arterial pH >7.30: (N/A) (06/13/25423) Safety Screen Spontaneous Breathing Trial (SBT - RT) : Proceed with SBT - No exclusion criteria met (06/13/25423) Spontaneous Breathing Trial Vent Settings Vent Mode: Assist control (06/13/25423) Mandatory Type: VC+ (06/13/25423) Resp Rate (Set): 14 (06/13/25423) Vt (Set, mL): 450 mL (06/13/25423) FiO2 (%): 30 % (06/13/25423) PEEP/CPAP (cm H2O): 5 cm H20 (06/13/25423) Inspiratory Time (sec): 0.9 sec (06/13/25423) Vitals MAP (mmHg): 73 (06/12/252002) Heart Rate: 69 (06/13/25423) Resp: 22 (06/13/25423) SpO2: 100 % (06/13/25423) Suctioning/Secretions Secretion Amount: Moderate (06/13/25423) Secretion Color: White, Yellow (06/13/25423) Secretion Consistency: Thick (06/13/25423) ABG results No results for input(s): "PHART", "RIE3RDL", "PO2ART", "KXV9UPQ", "SO2ART", "W3SLPJAQ" in the last 72 hours. Does this patient meet criteria for termination of mechanical ventilation Yes- Notified physician below Name of physician notified via secure chat or in person : N/A (NA if patient did not meet criteria) Comments: Thank you for involving Respiratory in the care of this patient, [facility] Nephrology Progress Note Subjective/ 75 y.o. year old female who we are seeing in consultation for ESRD and management of HD. Follows with Dr. Loredo and an outpatient HD schedule M- at [facility]. 06/06: TDC removed for suspicion of infection 06/08: Temp HD catheter placed by Icu followed by dialysis. 06/12: New TDC placed Laying bed, alert Nods head and attempts to mouth words Chronic trach to vent and PEG BP stable, on the low side Denies pain No LE edema No change in PFSH All data labs/interval notes and overnight issues are reviewed Objective/ Vitals: 06/12/25 0930 06/12/25 0935 06/12/25 0951 06/12/25 1202 BP: (!) 128/48 128/51 (!) 124/45 132/56 BP Location: Left arm Patient Position: Lying Pulse: 70 66 69 68 Resp: 23 17 20 Temp: 36.8 C (98.3 F) TempSrc: Oral SpO2: 95% 96% 97% Weight: Height: 24HR INTAKE/OUTPUT: Intake/Output Summary (Last 24 hours) at 06/12/2025 1535 Last data filed at 06/12/2025 0628 Gross per 24 hour Intake 1476 ml Output 0 ml Net 1476 ml Wt Readings from Last 3 Encounters: 06/11/25 104 kg (229 lb 0.9 oz) Constitutional: Awake, obese HEENT: no pallor/cyanosis or icterus Cardiovascular: S1, S2 without m/r/g Respiratory: CTA, B/l equal air entry trach present Abdomen: +bs, soft, Non tender non distended Ext: No LE edema No CVA tenderness Neurologic Alert and oriented; answers questions Psychiatric Calm and cooperative normal modd and affect Neck: supple, no thyroid enlargement, no JVD elevation Skin: warm, moist, no rashes Tunneled HD catheter RIJ. Medications: Scheduled Meds[1] Continuous Infusions:Continuous Meds[2] PRN Meds:PRN Meds[3] Data/ Recent Labs 06/10/25 0508 06/10/25 1238 06/11/25 0552 06/12/25 0550 WBC 6.4 -- 7.4 6.9 HGB 6.8* 8.1* 8.3* 7.9* HCT 22.4* 25.8* 25.8* 25.0* MCV 84.5 -- 81.6 83.9 PLT 228 -- 235 224 Recent Labs 06/10/25 0508 06/11/25 0552 06/12/25 0550 NA 134* 132* 137 K 3.9 3.9 3.7 CL 99 99 98 CO2 25 22* 27 GLUCOSE 121* 149* 165* BUN 38* 49* 26* CREATININE 3.44* 4.10* 2.53* Albumin: No components found for: "LABALBU" Calcium: Lab Results Component Value Date CALCIUM 8.7 (L) 06/12/2025 Ionized Calcium: No components found for: "IONCA" Magnesium: No results found for: "MG" Phosphorus: No results found for: "PHOS" / 75 y.o. female with ESRD N18.6 C. Difficile A04.72 Anemia D63.1 Volume overload E87.70 Hyponatremia E87.1 Chronic respiratory failure J96.10 Diabetes E11.22 Dependence on hemodialysis RECOMMENDATIONS: - HD schedule M- at [facility], follows with Dr. Loredo. 1.6 L removed yesterday. Will plan of HD tomorrow and continue with MWF schedule while inpatient -Tunneled line removed last week for infection. New TDC placed today in IR after blood cultures negative. - Anemia -Transfuse to keep Hgb > 7.0 ESRD hgb goal > 10. Iron studies reviewed, will initiate DORIS therapy - Okay for Midodrine 10 mg 1 hour prior to iHD for BP support during fluid removal. - Electrolytes improved with dialysis, continue to monitor trends - Avoid nephrotoxins and IV contrast dye - Dose all meds per GFR < 15 - We will follow closely -ID following for management of antibiotics [1] atorvastatin, 40 mg, Per G Tube, Daily busPIRone, 5 mg, Per G Tube, TID carvedilol, 3.125 mg, Per G Tube, BID WC cefepime, 1,000 mg, IntraVENous, q12h fidaxomicin, 200 mg, Per G Tube, BID FLUoxetine, 20 mg, Per G Tube, Daily furosemide, 20 mg, Per G Tube, Daily heparin, 5,000 Units, SubCUTAneous, 2 times per day insulin glargine, 25 Units, SubCUTAneous, BID insulin lispro, 0-6 Units, SubCUTAneous, q6h ipratropium-albuterol, 3 mL, Nebulization, q4h miconazole, , Topical, BID midodrine, 10 mg, Per G Tube, TID pantoprazole (ProtoNix) 40 mg in sodium chloride (PF) 0.9 % 10 mL injection, 40 mg, IntraVENous, Nightly sodium chloride, 3 mL, Nebulization, BID stomahesive in petrolatum, , Topical, 3 times per day [2] [3] PRN medications: acetaminophen OR acetaminophen, albumin human, albuterol, dextrose 5 % and sodium chloride 0.45 %, dextrose, dextrose, glucagon (rDNA), glucose, heparin, heparin, heparin, heparin, morphine sulfate, polyethylene glycol (PEG) 3350, promethazine OR promethazine OR promethazine, sodium chloride, sodium chloride, sodium chloride, stomahesive in petrolatum [facility] Hospitalist Progress note [phone]: Please page me ([phone]) for patient care issues. [phone]: Please page [facility] Hospitalist for any issues. Subjective: Admit Date: 06/01/2025 PCP: No primary care provider on file. Room#: [id number] José Miguel Myers is a 75 y.o. female who presents with Anemia Interval History: Appears to be doing ok. Comfortable. No sob, cough, n/v. Tolerating tube feeds. Diet, tube feeding no tray PEG; Nepro w/CARB Steady; Continuous; No; 40; 40 24HR INTAKE/OUTPUT: Intake/Output Summary (Last 24 hours) at 06/12/2025 0936 Last data filed at 06/12/2025 0628 Gross per 24 hour Intake 1676 ml Output 0 ml Net 1676 ml LABS: CBC: Recent Labs 06/10/25 0508 06/10/25 1238 06/11/25 0552 06/12/25 0550 WBC 6.4 -- 7.4 6.9 RBC 2.65* -- 3.16* 2.98* HGB 6.8* 8.1* 8.3* 7.9* HCT 22.4* 25.8* 25.8* 25.0* MCV 84.5 -- 81.6 83.9 RDW 19.1* -- 18.0* 18.3* PLT 228 -- 235 224 BMP: Recent Labs 06/10/25 0508 06/11/25 0552 06/12/25 0550 NA 134* 132* 137 K 3.9 3.9 3.7 CL 99 99 98 CO2 25 22* 27 BUN 38* 49* 26* CREATININE 3.44* 4.10* 2.53* GLUCOSE 121* 149* 165* CALCIUM 9.0 9.2 8.7* ANIONGAP 10 11 12 LIVER PROFILE: Recent Labs 06/10/25 0508 06/11/25 0552 06/12/25 0550 AST 25 26 21 ALT 10 12 9 BILITOT 0.5 0.8 0.7 ALKPHOS 112 117 115 PROT 6.4 6.6 6.4 PT/INR: No results for input(s): "PROTIME", "INR" in the last 72 hours. CARDIAC ENZYMES: No results for input(s): "TROPONINI" in the last 72 hours. Procalcitonin: No results found for: "PROCAL" @RISRSLTSPECIALTY@ Objective: Vitals: BP (!) 128/48 Pulse 70 Temp 37.1 C (98.7 F) (Oral) Resp 23 Ht 5' 5" (1.651 m) Wt 229 lb 0.9 oz (104 kg) SpO2 95% BMI 38.12 kg/m Pulse Ox: SpO2 Av.9 % Min: 95 % Max: 100 % Supplemental O2: 06/12/2025 General appearance: No apparent distress, appears stated age, AAOX3 Oral: Tongue is semi-moist Cardiovascular: S1/S2 heard, RRR Respiratory: Clear to auscultation bilaterally, tracheostomy site red and inflamed Abdomen: Soft, non-tender, non-distended bowel sounds positive Musculoskeletal: Bilateral venous stasis changes Skin: Tunneled line removed, dressing in place, no redness or erythema Medications: Continuous Meds[1] Scheduled Meds[2] Assessment Acute on chronic anemia Chronic bilateral pleural effusions Pneumonia Chronic respiratory failure tracheostomy dependent Concern for tunneled line infection C. difficile infection Hypokalemia Pressure ulcers present on admission ESRD on HD chronic heart failure Severe malnutrition GERD Anxiety Depression Type 2 diabetes Chronic candidiasis Neuropathy Plan Continue present tx, continue antibiotics, ID and Pulmonology and Wound Care and Nephrology following, follow up cultures, determine antibiotic route and length, continue HD, follow up labs, discharge planning, see orders -am labs, replace lytes prn -increase activity Diet Diet, tube feeding no tray PEG; Nepro w/CARB Steady; Continuous; No; 40; 40 DVT Prophylaxis [] Lovenox, [x] Heparin, [] SCDs, [] Ambulation [] Already on Anticoagulation GI Prophylaxis [] PPI, [] H2 Herb, [] Carafate, [] Diet/Tube Feeds Code Status Full Code MDM [] Low, [] Moderate,[x] High Patient's risk as above Anticipated Discharge - Date -06/13-06/14 - Location - Skilled Facility - Pending the following -antibiotic finalization and when OK with consultants Total time spent (which include face to face and non face to face encounters) : 45 minutes Toxic drug monitoring/narrow therapeutic index drug monitoring : # Drug name : SS insulin and heparin # Route administered : subcutaneous and subcutaneous # Method of monitoring : Q6hr BG/daily BMP/hypoglycemia protocol and daily CBC No emergency contact information on file. Advance Directive: Full Code Discharge planning: TBD Robert Jimenez MD Division of Hospitalist Medicine Inpatient Medical Services/[facility] [1] [2] atorvastatin, 40 mg, Per G Tube, Daily busPIRone, 5 mg, Per G Tube, TID carvedilol, 3.125 mg, Per G Tube, BID WC cefepime, 1,000 mg, IntraVENous, q12h fidaxomicin, 200 mg, Per G Tube, BID FLUoxetine, 20 mg, Per G Tube, Daily furosemide, 20 mg, Per G Tube, Daily heparin, 5,000 Units, SubCUTAneous, 2 times per day insulin glargine, 25 Units, SubCUTAneous, BID insulin lispro, 0-6 Units, SubCUTAneous, q6h ipratropium-albuterol, 3 mL, Nebulization, q4h miconazole, , Topical, BID midodrine, 10 mg, Per G Tube, TID pantoprazole (ProtoNix) 40 mg in sodium chloride (PF) 0.9 % 10 mL injection, 40 mg, IntraVENous, Nightly sodium chloride, 3 mL, Nebulization, BID stomahesive in petrolatum, , Topical, 3 times per day Images from the original note were not included. [facility] [address] [place] [id number] Patient - Rosa Myers, Age - 75 y.o. - 1950 Room Number - 222-04/222-04 A Consulting - Robert Jimenez MD Primary Care Physician - No primary care provider on file. Date of Admission - 06/01/2025 10:53 AM Hospital Day - 11 Problem List[1] Chief Complaint: Anemia Rosa Myers is a 75 y.o. female who pulmonary is following for VDRF Subjective/Interval History: Patient denied any shortness of breath or chest discomfort this morning. RN at bedside- reports no new overnight concerns. Had new tunneled HD catheter placed this morning. Patient is resting comfortably in bed. Vent settings: Mode A/C VC+, RR 14, Vt 450, 30% FiO2, PEEP 5 cm H2O A pertinent review of systems was performed and was otherwise non-contributory except as detailed in Subjective section above. Objective: Vitals: BP (!) 124/45 Pulse 69 Temp 37.1 C (98.7 F) (Oral) Resp 17 Ht 5' 5" (1.651 m) Wt 229 lb 0.9 oz (104 kg) SpO2 96% BMI 38.12 kg/m Pulse Ox: SpO2 Av.8 % Min: 95 % Max: 100 % Supplemental O2: 30% FiO2 on Vent. I/O 24HR INTAKE/OUTPUT: Intake/Output Summary (Last 24 hours) at 06/12/2025 1007 Last data filed at 06/12/2025 0628 Gross per 24 hour Intake 1676 ml Output 0 ml Net 1676 ml Physical Exam:unchanged compared to 06/07 Physical Exam Vitals and nursing note reviewed. Constitutional: General: She is not in acute distress. Comments: Chronically ill appearing Neck: Trachea: Tracheostomy present. Cardiovascular: Rate and Rhythm: Normal rate and regular rhythm. Pulmonary: Effort: Pulmonary effort is normal. No respiratory distress. Breath sounds: Rhonchi present. No wheezing or rales. Comments: Chronic vent dependence Chest: Comments: Right tunneled HD catheter in place Musculoskeletal: Right lower leg: No edema. Left lower leg: No edema. Skin: General: Skin is warm and dry. Coloration: Skin is not jaundiced. Findings: No lesion or rash. Neurological: Mental Status: Mental status is at baseline. Psychiatric: Mood and Affect: Mood normal. Behavior: Behavior normal. Behavior is cooperative. Medications: Allergies[2] Current Medications[3] PRN Meds[4] Labs: CBC: Recent Labs 06/10/25 0508 06/10/25 1238 06/11/25 0552 06/12/25 0550 WBC 6.4 -- 7.4 6.9 HGB 6.8* 8.1* 8.3* 7.9* HCT 22.4* 25.8* 25.8* 25.0* PLT 228 -- 235 224 MCV 84.5 -- 81.6 83.9 RDW 19.1* -- 18.0* 18.3* BMP: Recent Labs 06/10/25 0508 06/11/25 0552 06/12/25 0550 NA 134* 132* 137 K 3.9 3.9 3.7 CL 99 99 98 CO2 25 22* 27 BUN 38* 49* 26* CREATININE 3.44* 4.10* 2.53* CALCIUM 9.0 9.2 8.7* LFTs: Recent Labs 06/10/25 0508 06/11/25 0552 06/12/25 0550 AST 25 26 21 ALT 10 12 9 PROT 6.4 6.6 6.4 ALBUMIN 2.3* 2.3* 2.2* BILITOT 0.5 0.8 0.7 ALKPHOS 112 117 115 Glucose: Recent Labs 06/10/25 0508 06/10/25 0638 06/10/25 1711 06/10/25 2355 06/11/25 0552 06/11/25 0612 06/11/25 1333 06/11/25 1853 06/11/25 2052 06/12/25 0037 06/12/25 0540 06/12/25 0550 GLUCOSE 121* -- -- -- 149* -- -- -- -- -- -- 165* POCGLU -- < > 157* 164* -- 163* 139* 199* 192* 166* 171* -- < > = values in this interval not displayed. Pleural fluid 06/07/25: Lab Results Component Value Date LDHFL 91 06/07/2025 PROTEINFL 3.9 06/07/2025 FLUIDTYPE Pleural Fluid 06/07/2025 FLUIDTYPE Pleural Fluid 06/07/2025 LDH 213 06/08/2025 PROT 6.4 06/12/2025 ALBUMIN 2.2 (L) 06/12/2025 Microbiology: + C difficile Blood cultures: NGTD Dialysis catheter tip: + Serratia marcescens Sputum culture: + Serratia marcescens, Stenotrophomonas maltophilia & Pseudomonas aeruginosa Imaging/ Testing: CXR 06/08/25: IMPRESSION: Lines, tubes, and devices:Interval placement a right IJ approach central venous catheter with tip projecting over the SVC. Tracheostomy tube again projects over the trachea. Lungs and pleura:Prominence of the central pulmonary vasculature without overt pulmonary edema. Hazy bibasilar opacities likely small pleural effusions with associated atelectasis. Superimposed infectious/inflammatory process is not entirely excluded. No interval pneumothorax. Cardiomediastinal silhouette: Stable enlarged cardiac silhouette.Atherosclerotic calcifications of the aortic arch Other: Degenerative changes of the spine and acromioclavicular joints. Assessment and Plan/Recommendations: Chronic respiratory failure with hypoxia. Ventilator dependence Tracheostomy dependence Hx bilateral pleural effusions, transudate Possible PNA- polymicorbial respiratory tract infections. ESRD with pulmonary edema Anemia + C Diff S/p left thoracentesis with removal of 600 ml dacosta fluid, borderline exudate. Culture NGTD. Follow up CXR with small effusions, atelectasis Continue fluid removal via HD. New tunneled HD catheter placed this morning. Management as per Nephrology Sputum culture + Serratia, Stenotrophomonas and Pseudomonas. Antibiotic management as per ID team. Continue DuoNeb's, Hypertonic saline aerosols Respiratory status stable on vent. Continue home settings. No plans for weaning. Routine trach care & pulmonary hygiene Advance Directive: Full Code Discharge planning: Stable to discharge back to [facility] from pulmonary standpoint Case discussed with nurse and patient Questions and concerns addressed. [1] Patient Active Problem List Diagnosis Anemia Anemia, unspecified type Moderate malnutrition (CMS/HCC) ([facility]) [2] No Known Allergies [3] Current Facility-Administered Medications: acetaminophen (Tylenol) tablet 650 mg, 650 mg, Oral, q6h PRN OR acetaminophen (Tylenol) suppository 650 mg, 650 mg, Rectal, q6h PRN, Sharyn Amaya MD albumin human 5 % IV solution 25 g, 25 g, IntraVENous, TID PRN, Rad Acosta MD albuterol (2.5 MG/3ML) 0.083% nebulizer solution 2.5 mg, 2.5 mg, Nebulization, q6h PRN, RENITA Tyler CNP atorvastatin (Lipitor) tablet 40 mg, 40 mg, Per G Tube, Daily, Grzegorz Chatterjee MD, 40 mg at 06/12/25 0950 busPIRone (Buspar) tablet 5 mg, 5 mg, Per G Tube, TID, Grzegorz Chatterjee MD, 5 mg at 06/12/25 0950 carvedilol (Coreg) tablet 3.125 mg, 3.125 mg, Per G Tube, BID WC, Raine Etienne MD, 3.125 mg at 06/12/25 0951 cefepime (Maxipime) 1,000 mg in sodium chloride 0.9 % 50 mL IVPB, 1,000 mg, IntraVENous, q12h, Geno Waddell MD, Stopped at 06/12/25 0658 dextrose 5 % and sodium chloride 0.45 % bolus 500 mL, 500 mL, IntraVENous, TID PRN, Rad Acosta MD dextrose 5 % infusion, 100 mL/hr, IntraVENous, PRN, Sharyn Amaya MD, Stopped at 06/02/25 1757 dextrose 50 % solution 12.5 g, 12.5 g, IntraVENous, PRN, Sharyn Amaya MD, 12.5 g at 06/10/25 0014 fidaxomicin (Dificid) tablet 200 mg, 200 mg, Per G Tube, BID, Grzegorz Chatterjee MD, 200 mg at 06/12/25 0950 FLUoxetine (PROzac) capsule 20 mg, 20 mg, Per G Tube, Daily, Grzegorz Chatterjee MD, 20 mg at 06/12/25 0950 furosemide (Lasix) tablet 20 mg, 20 mg, Per G Tube, Daily, Grzegorz Chatterjee MD, 20 mg at 06/12/25 0950 glucagon (human recombinant) injection 1 mg, 1 mg, IntraMUSCular, PRN, Sharyn Amaya MD glucose oral gel 15 g, 15 g, Oral, PRN, Sharyn Amaya MD heparin injection 1,200-2,000 Units, 1,200-2,000 Units, IntraCATHeter, PRN, Mi Singh APRN - METALLURGIST HELPER, 1,400 Units at 06/11/25 1404 heparin injection 1,200-2,000 Units, 1,200-2,000 Units, IntraCATHeter, PRN, Mi Singh, GROUNDMAN/LINEMAN - METALLURGIST HELPER, 1,400 Units at 06/11/25 1402 heparin injection 1,200-2,000 Units, 1,200-2,000 Units, IntraCATHeter, PRN, Yamil Newby MD heparin injection 1,200-2,000 Units, 1,200-2,000 Units, IntraCATHeter, PRN, Yamil Newby MD heparin injection 5,000 Units, 5,000 Units, SubCUTAneous, 2 times per day, Sharyn Amaya MD, 5,000 Units at 06/12/25 0950 insulin glargine (Lantus) injection 25 Units, 25 Units, SubCUTAneous, BID, Sharyn Amaya MD, 25 Units at 06/11/25 2048 Insulin Lispro (Humalog) injection 0-6 Units, 0-6 Units, SubCUTAneous, q6h, Grzegorz Chatterjee MD, 1 Units at 06/12/25 0554 ipratropium-albuterol (Duo-Neb) 0.5-2.5 mg/3 mL nebulizer solution 3 mL, 3 mL, Nebulization, q4h, Neelima Hanks, GROUNDMAN/LINEMAN - METALLURGIST HELPER, 3 mL at 06/12/25 0808 miconazole (Micotin) 2 % powder, , Topical, BID, Patrica Weinstein, GROUNDMAN/LINEMAN - METALLURGIST HELPER, 1 Application at 06/12/25 0951 midodrine (Proamatine) tablet 10 mg, 10 mg, Per G Tube, TID, Grzegorz Chatterjee MD, 10 mg at 06/12/25 0950 morphine injection 1 mg, 1 mg, IntraVENous, q4h PRN, Geno Waddell MD, 1 mg at 06/11/25 1448 pantoprazole (ProtoNix) 40 mg in sodium chloride (PF) 0.9 % 10 mL injection, 40 mg, IntraVENous, Nightly, Grzegorz Chatterjee MD, 40 mg at 06/11/25 204 polyethylene glycol (PEG) 3350 (Miralax) packet 17 g, 17 g, Oral, Daily PRN, Sharyn Amaya MD promethazine (Phenergan) tablet 12.5 mg, 12.5 mg, Oral, q6h PRN OR promethazine (Phenergan) injection 12.5 mg, 12.5 mg, IntraMUSCular, q6h PRN OR promethazine (Phenergan) suppository 12.5 mg, 12.5 mg, Rectal, q6h PRN, Sharyn Amaya MD sodium chloride 0.9 % infusion, 250 mL/hr, IntraVENous, PRN, Omid Orona MD sodium chloride 0.9 % infusion, 250 mL/hr, IntraVENous, PRN, Geno Waddell MD sodium chloride 0.9 % infusion, 250 mL/hr, IntraVENous, PRN, Tomy Hill MD sodium chloride 3 % hypertonic nebulizer solution 3 mL, 3 mL, Nebulization, BID, RENITA Tyler CNP, 3 mL at 06/12/25 0809 stomahesive in petrolatum (ET Mix), , Topical, PRN, RENITA Gtz CNP, Given at 06/08/25 1857 stomahesive in petrolatum (ET Mix), , Topical, 3 times per day, RENITA Gtz CNP, Given at 06/12/25 0551 [4] PRN medications: acetaminophen OR acetaminophen, albumin human, albuterol, dextrose 5 % and sodium chloride 0.45 %, dextrose, dextrose, glucagon (rDNA), glucose, heparin, heparin, heparin, heparin, morphine sulfate, polyethylene glycol (PEG) 3350, promethazine OR promethazine OR promethazine, sodium chloride, sodium chloride, sodium chloride, stomahesive in petrolatum [facility] Respiratory Care Department Progress Note Spontaneous Awakening Trial Wean Screen SpO2>/=88%: (P) Yes (06/12/25611) FiO2</=50%: (P) Yes (06/12/25611) PEEP </=8cmH2O: (P) Yes (06/12/25611) HR <140 BPM: (P) Yes (06/12/25611) RR </= 35 breaths/min: (P) Yes (06/12/25611) MAP >/= 65mmHg: (P) Yes (06/12/25611) Arterial pH >7.30: (P) Yes (06/12/25611) Safety Screen Spontaneous Breathing Trial (SBT - RT) : (P) SBT Held - Chronic Ventilator Dependent (06/12/25611) Spontaneous Breathing Trial Vent Settings Vent Mode: Assist control (06/12/25455) Mandatory Type: VC+ (06/12/25455) Resp Rate (Set): 14 (06/12/25455) Vt (Set, mL): 450 mL (06/12/25455) FiO2 (%): 30 % (06/12/25455) PEEP/CPAP (cm H2O): 5 cm H20 (06/12/25455) Inspiratory Time (sec): 0.9 sec (06/12/25455) Vitals MAP (mmHg): 63 (06/11/252044) Heart Rate: 63 (06/12/25455) Resp: 18 (06/11/252044) SpO2: 99 % (06/12/25455) Suctioning/Secretions Secretion Amount: Small (06/12/25455) Secretion Color: Yellow (06/11/25846) Secretion Consistency: Thick (06/11/25846) ABG results No results for input(s): "PHART", "AEI4LOM", "PO2ART", "OWO8MZS", "SO2ART", "X1RBBGGS" in the last 72 hours. Does this patient meet criteria for termination of mechanical ventilation No - Chronic Vent Dependent Name of physician notified via secure chat or in person : NA (NA if patient did not meet criteria) Comments: Thank you for involving Respiratory in the care of this patient, [facility] Nephrology Progress Note Subjective/ 75 y.o. year old female who we are seeing in consultation for ESRD and management of HD. Follows with Dr. Loredo and an outpatient HD schedule M- at [facility]. 06/06: TDC removed for suspicion of infection 06/08: Temp HD catheter placed by Icu followed by dialysis. Laying bed, alert Tolerating HD during exam Nods head and attempts to mouth words Chronic trach to vent and PEG BP stable, on the low side Denies pain No LE edema No change in PFSH All data labs/interval notes and overnight issues are reviewed Objective/ Vitals: 06/11/25 1218 06/11/25 1230 06/11/25 1245 06/11/25 1246 BP: 104/64 (!) 102/49 128/52 BP Location: Patient Position: Pulse: 68 68 66 68 Resp: Temp: TempSrc: SpO2: 99% 99% 100% 100% Weight: Height: 24HR INTAKE/OUTPUT: Intake/Output Summary (Last 24 hours) at 06/11/2025 1258 Last data filed at 06/11/2025 0616 Gross per 24 hour Intake 1677 ml Output -- Net 1677 ml Wt Readings from Last 3 Encounters: 06/11/25 104 kg (229 lb 0.9 oz) Constitutional: Alert, awake, obese HEENT: no pallor/cyanosis or icterus Cardiovascular: S1, S2 without m/r/g Respiratory: CTA, B/l equal air entry trach present Abdomen: +bs, soft, Non tender non distended Ext: No LE edema No CVA tenderness Neurologic Alert and oriented; answers questions Psychiatric Calm and cooperative normal modd and affect Neck: supple, no thyroid enlargement, no JVD elevation Skin: warm, moist, no rashes Temp HD catheter RIJ. Medications: Scheduled Meds[1] Continuous Infusions:Continuous Meds[2] PRN Meds:PRN Meds[3] Data/ Recent Labs 06/09/25 0633 06/09/25 0735 06/10/25 0508 06/10/25 1238 06/11/25 0552 WBC 6.7 -- 6.4 -- 7.4 HGB 6.9* < > 6.8* 8.1* 8.3* HCT 22.0* < > 22.4* 25.8* 25.8* MCV 82.7 -- 84.5 -- 81.6 PLT 230 -- 228 -- 235 < > = values in this interval not displayed. Recent Labs 06/09/25 0541 06/10/25 0508 06/11/25 0552 NA 136 134* 132* K 3.8 3.9 3.9 CL 99 99 99 CO2 26 25 22* GLUCOSE 101 121* 149* BUN 26* 38* 49* CREATININE 2.37* 3.44* 4.10* Albumin: No components found for: "LABALBU" Calcium: Lab Results Component Value Date CALCIUM 9.2 06/11/2025 Ionized Calcium: No components found for: "IONCA" Magnesium: No results found for: "MG" Phosphorus: No results found for: "PHOS" y.o. female with ESRD N18.6 C. Difficile A04.72 Anemia D63.1 Volume overload E87.70 Hyponatremia E87.1 Chronic respiratory failure J96.10 Diabetes E11.22 Dependence on hemodialysis RECOMMENDATIONS: - HD schedule M-F at [facility], follows with Dr. Loredo. Tolerating HD today, will continue with MWF schedule while inpatient -Tunneled line removed last week for infection. Temp HD line placed on 06/08, blood cultures with NGTD over 70 hrs. Spoke with IR and placed order for tunneled HD catheter -ID following for management of antibiotics - Okay for Midodrine 10 mg 1 hour prior to iHD for BP support during fluid removal. - Electrolytes will improve with dialysis today, continue to monitor trends - Anemia -Transfuse to keep Hgb > 7.0 ESRD hgb goal > 10. Check Iron studies. - Avoid nephrotoxins and IV contrast dye - Dose all meds per GFR < 15 - We will follow closely - D/w dialysis team and IR [1] atorvastatin, 40 mg, Per G Tube, Daily busPIRone, 5 mg, Per G Tube, TID carvedilol, 3.125 mg, Per G Tube, BID WC cefepime, 1,000 mg, IntraVENous, q12h chlorhexidine, , Topical, Daily fidaxomicin, 200 mg, Per G Tube, BID FLUoxetine, 20 mg, Per G Tube, Daily furosemide, 20 mg, Per G Tube, Daily heparin, 5,000 Units, SubCUTAneous, 2 times per day insulin glargine, 25 Units, SubCUTAneous, BID insulin lispro, 0-6 Units, SubCUTAneous, q6h ipratropium-albuterol, 3 mL, Nebulization, q4h miconazole, , Topical, BID midodrine, 10 mg, Per G Tube, TID pantoprazole (ProtoNix) 40 mg in sodium chloride (PF) 0.9 % 10 mL injection, 40 mg, IntraVENous, Nightly sodium chloride, 3 mL, Nebulization, BID stomahesive in petrolatum, , Topical, 3 times per day [2] dextrose 5 % and sodium chloride 0.9 %, 75 mL/hr, Last Rate: Stopped (06/10/25 1900) [3] PRN medications: acetaminophen OR acetaminophen, albumin human, albuterol, dextrose 5 % and sodium chloride 0.45 %, dextrose, dextrose, glucagon (rDNA), glucose, heparin, heparin, heparin, heparin, morphine sulfate, polyethylene glycol (PEG) 3350, promethazine OR promethazine OR promethazine, sodium chloride, sodium chloride, sodium chloride, stomahesive in petrolatum Cosigned by Colmean Toney MD at 06/11/2025 8:30 PM EDT Associated attestation - Coleman Toney MD - 06/11/2025 8:30 PM EDT I have reviewed the above assessment and plan with the FULL STACK DEVELOPER. I agree with above note. Needs Temp to tunneled HD catheter conversion. HD today. Nutrition Assessment Type and Reason for Visit: Reassess Nutrition Recommendations/Plan: Modify tube feed to Nepro with goal of 40 ml/hr to provide 1699 kcals, 78g protein, and 698 ml free water (30 kcals, 1.4g protein per kg IBW 57kg). Still meeting pt's anabolic needs for dialysis. +C-diff, diarrhea- on Dificid. Consider addition of Probiotics in to pt's regimen. Monitor pt's tube feed tolerance, weights, labs. RD will follow. Malnutrition Assessment: Malnutrition Status: Moderate malnutrition Context: Chronic Illness Nutrition Assessment: Pt remains in the ICU d/t chronic vent dependency. Tube feed Nepro @ 45ml/hr. Pt continues to have loose stools, +for C-diff. Spoke with RN regarding plan to decrease rate by 5ml/hr which would still meet pt's anabolic needs for dialysis. Pt appeared comfortable laying in bed. Denied any nausea or ab pain to dietitian. Pt was receiving dialysis at bedside during RD visit. Pt had tunneled HD cath removed 06/06 d/t suspected infection. Temp HD cath placed 06/08. Bed scale measured the pt at 103.9kg (229#). No dry weight established per dialysis nurse in the room. 06/08 HD session with 2000 ml net removed. Plan is to go back to [facility]. Estimated Daily Nutrient Needs: Energy Requirements Based On: Kcal/kg Weight Used for Energy Requirements: [place] Weight for Energy Calculation (kg): 57 kg Total Energy Requirements (kcals/day): 0287-4066 (25-30 kcal/kg IBW) Weight Used for Protein Requirements: [place] Weight in Kg Used for Protein Requirements: 57 kg Estimated Total Protein (g/day): 68-97 (1.2-1.7 g protein/kg IBW) Estimated Daily Total Fluid (ml/day): per MD Nutrition Related Findings: non pitting generalized edema, Na 132, K+ 3.9, CO2 22, BUN 49, Cr 4.10, GFR 10.7, Glucose 163, 164, 157, 163, Hgb 8.3, Hct 25.8 Wound Type: (mid buttock pressure injury, right upper proximal leg pressure injury) Current Nutrition Therapies: Enteral Nutrition Feeding Route: PEG EN Formula: Nepro w/CARBSTEADY EN Schedule: Continuous EN Feeding Regimen: Nepro Carb Steady @45 ml/hr Additives/Modulars: None Water Flushes: 100 mL Q4H Current EN & Flush Order Provides: 1911 kcals, 87g protein, and 1385 ml free water (~33.5 kcals, 1.53g protein per kg IBW 57kg) Goal EN & Flush Order Provides: Decrease to 40 ml/hr will provide 1699 kcals, 78g protein, and 698 ml free water (~30 kcals, 1.37g protein per kg IBW 57kg( Anthropometric Measures: Height: 165.1 cm (5' 5") Current Body Weight: 104 kg (229 lb 0.9 oz) Weight Source: Bed Scale Admission Body Weight: 103 kg (226 lb) (noted 05/25 at SN[facility]) Usual Body Weight: 110 kg (242 lb) (per EMR--> 242# 11/27/24; 220# (bed) 03/07/25; 209.7# 04/02/25; 226# 05/25/25) % Weight Change (Calculated): -8.4 [place] Body Weight (lbs) (Calculated): 125 lbs [place] Body Weight (Kg) (Calculated): 57 kg % [place] Body Weight (Calculated): 183.2 % BMI (kg/m2) (Calculated): 38.1 Weight Adjustment For: No Adjustment BMI Categories: Obese Class 2 (BMI 35.0 -39.9) Nutrition Diagnosis: Moderate malnutrition, In context of chronic illness related to increase demand for energy/nutrients as evidenced by mild loss of subcutaneous fat, mild muscle loss Altered GI function related to altered GI structure, acute injury/trauma (Chronic trach/PEG; +C-diff) as evidenced by nutrition support - enteral nutrition, diarrhea Nutrition Interventions: Nutrition Education/Counseling: No recommendation at this time Coordination of Nutrition Care: Continue to monitor while inpatient Plan of Care discussed with: RN, patient, dialysis nurse Goals: Previous Goal Met: Progressing toward Goal(s) Goals: Meet at least 75% of estimated needs, Tolerate nutrition support at goal rate, by next RD assessment, other (specify) Specify Other Goals: Diarrhea will improve/resolve Nutrition Monitoring and Evaluation: Behavioral-Environmental Outcomes: None Identified Food/Nutrient Intake Outcomes: Enteral Nutrition Intake/Tolerance Physical Signs/Symptoms Outcomes: Biochemical Data, Diarrhea, GI Status, Nausea or Vomiting, Fluid Status or Edema, Nutrition Focused Physical Findings, Skin, Weight Discharge Planning: Enteral Nutrition Queta Steve RD Contact: *[phone] or via Secure Chat Images from the original note were not included. [facility] [place] [address] [place], [place] [address] Patient - Rosa Myers, Age - 75 y.o. - 1950 Room Number - 222-04/222-04 A Consulting - Raine Etienne MD Primary Care Physician - No primary care provider on file. Date of Admission - 06/01/2025 10:53 AM Hospital Day - 10 Problem List[1] Chief Complaint: Anemia Rosa Myers is a 75 y.o. female who pulmonary is following for VDRF Subjective/Interval History: Patient resting in bed getting HD this morning. Stable on vent. Denied any shortness of breath or chest pain. Secretions improved per RN WOUND. No new overnight concerns. Vent settings: Mode A/C VC+, RR 14, Vt 450, 30% FiO2, PEEP 5 cm H2O A pertinent review of systems was performed and was otherwise non-contributory except as detailed in Subjective section above. Objective: Vitals: BP (!) 120/40 Pulse 64 Temp 37.1 C (98.7 F) Resp 21 Ht 5' 5" (1.651 m) Wt 230 lb 9.6 oz (105 kg) SpO2 99% BMI 38.37 kg/m Pulse Ox: SpO2 Av.4 % Min: 97 % Max: 100 % Supplemental O2: 30% FiO2 on Vent. I/O 24HR INTAKE/OUTPUT: Intake/Output Summary (Last 24 hours) at 06/11/2025 1148 Last data filed at 06/11/2025 0616 Gross per 24 hour Intake 1677 ml Output -- Net 1677 ml Physical Exam:unchanged compared to 06/07 Physical Exam Vitals and nursing note reviewed. Constitutional: General: She is not in acute distress. Comments: Chronically ill appearing Neck: Trachea: Tracheostomy present. Cardiovascular: Rate and Rhythm: Normal rate and regular rhythm. Pulmonary: Effort: Pulmonary effort is normal. No respiratory distress. Breath sounds: Rales present. No wheezing or rhonchi. Comments: Chronic vent dependence Musculoskeletal: Right lower leg: No edema. Left lower leg: No edema. Skin: General: Skin is warm and dry. Coloration: Skin is not jaundiced. Findings: No lesion or rash. Neurological: Mental Status: Mental status is at baseline. Psychiatric: Mood and Affect: Mood normal. Behavior: Behavior normal. Behavior is cooperative. Medications: Allergies[2] Current Medications[3] PRN Meds[4] Labs: CBC: Recent Labs 06/09/25 0633 06/09/25 0735 06/10/25 0508 06/10/25 1238 06/11/25 0552 WBC 6.7 -- 6.4 -- 7.4 HGB 6.9* < > 6.8* 8.1* 8.3* HCT 22.0* < > 22.4* 25.8* 25.8* PLT 230 -- 228 -- 235 MCV 82.7 -- 84.5 -- 81.6 RDW 19.1* -- 19.1* -- 18.0* < > = values in this interval not displayed. BMP: Recent Labs 06/09/25 0541 06/10/25 0508 06/11/25 0552 NA 136 134* 132* K 3.8 3.9 3.9 CL 99 99 99 CO2 26 25 22* BUN 26* 38* 49* CREATININE 2.37* 3.44* 4.10* CALCIUM 9.1 9.0 9.2 LFTs: Recent Labs 06/09/25 0541 06/10/25 0508 06/11/25 0552 AST 18 25 26 ALT 9 10 12 PROT 6.6 6.4 6.6 ALBUMIN 2.4* 2.3* 2.3* BILITOT 0.5 0.5 0.8 ALKPHOS 117 112 117 Glucose: Recent Labs 06/09/25 0541 06/09/25 0551 06/09/25 2019 06/10/25 0008 06/10/25 0111 06/10/25 0508 06/10/25 0638 06/10/25 1125 06/10/25 1711 06/10/25 2355 06/11/25 0552 06/11/25 0612 GLUCOSE 101 -- -- -- -- 121* -- -- -- -- 149* -- POCGLU -- < > 97 57* 103* -- 117* 163* 157* 164* -- 163* < > = values in this interval not displayed. Pleural fluid 06/07/25: Lab Results Component Value Date LDHFL 91 06/07/2025 PROTEINFL 3.9 06/07/2025 FLUIDTYPE Pleural Fluid 06/07/2025 FLUIDTYPE Pleural Fluid 06/07/2025 LDH 213 06/08/2025 PROT 6.6 06/11/2025 ALBUMIN 2.3 (L) 06/11/2025 Microbiology: + C difficile Blood cultures: NGTD Dialysis catheter tip: + Serratia marcescens Sputum culture: + Serratia marcescens, Stenotrophomonas maltophilia & Pseudomonas aeruginosa Imaging/ Testing: CXR 06/08/25: IMPRESSION: Lines, tubes, and devices:Interval placement a right IJ approach central venous catheter with tip projecting over the SVC. Tracheostomy tube again projects over the trachea. Lungs and pleura:Prominence of the central pulmonary vasculature without overt pulmonary edema. Hazy bibasilar opacities likely small pleural effusions with associated atelectasis. Superimposed infectious/inflammatory process is not entirely excluded. No interval pneumothorax. Cardiomediastinal silhouette: Stable enlarged cardiac silhouette.Atherosclerotic calcifications of the aortic arch Other: Degenerative changes of the spine and acromioclavicular joints. Assessment and Plan/Recommendations: Chronic respiratory failure with hypoxia. Ventilator dependence Tracheostomy dependence Hx bilateral pleural effusions, transudate Possible PNA- polymicorbial respiratory tract infections. ESRD with pulmonary edema Anemia + C Diff S/p left thoracentesis with removal of 600 ml dacosta fluid, borderline exudate. Culture NGTD. Follow up CXR with small effusions, atelectasis Continue fluid removal via HD. Currently has temporary HD catheter as her TDC was removed for suspected infection. Tip culture + Serratia marcescens. Nephrology following. Sputum culture + Serratia, Stenotrophomonas and Pseudomonas. Antibiotic management as per ID team. Continue DuoNeb's, Hypertonic saline aerosols Respiratory status stable on vent. Continue home settings. No plans for weaning. Routine trach care & pulmonary hygiene Advance Directive: Full Code Discharge planning: Anticipate discharge back to [facility] once medically stable Case discussed with nurse and patient Questions and concerns addressed. [1] Patient Active Problem List Diagnosis Anemia Anemia, unspecified type Moderate malnutrition (CMS/HCC) ([facility]) [2] No Known Allergies [3] Current Facility-Administered Medications: acetaminophen (Tylenol) tablet 650 mg, 650 mg, Oral, q6h PRN OR acetaminophen (Tylenol) suppository 650 mg, 650 mg, Rectal, q6h PRN, Sharyn Amaya MD albumin human 5 % IV solution 25 g, 25 g, IntraVENous, TID PRN, Rad Acosta MD albuterol (2.5 MG/3ML) 0.083% nebulizer solution 2.5 mg, 2.5 mg, Nebulization, q6h PRN, Neelima Hanks APRN - RENEE atorvastatin (Lipitor) tablet 40 mg, 40 mg, Per G Tube, Daily, Grzegorz Chatterjee MD, 40 mg at 06/11/25 0846 busPIRone (Buspar) tablet 5 mg, 5 mg, Per G Tube, TID, Grzegorz Chatterjee MD, 5 mg at 06/11/25 0846 carvedilol (Coreg) tablet 3.125 mg, 3.125 mg, Per G Tube, BID WC, Raine Etienne MD, 3.125 mg at 06/11/25 0846 cefepime (Maxipime) 1,000 mg in sodium chloride 0.9 % 50 mL IVPB, 1,000 mg, IntraVENous, q12h, Geno Waddell MD, Stopped at 06/11/25 0615 chlorhexidine (Hibiclens) 4 % solution, , Topical, Daily, Carmela Francois DO, Given at 06/10/25 1559 dextrose 5 % and sodium chloride 0.45 % bolus 500 mL, 500 mL, IntraVENous, TID PRN, Rad Acosta MD dextrose 5 % and sodium chloride 0.9 % infusion, 75 mL/hr, IntraVENous, Continuous, Tomy Hill MD, Stopped at 06/10/25 1900 dextrose 5 % infusion, 100 mL/hr, IntraVENous, PRN, Sharyn Amaya MD, Stopped at 06/02/25 1757 dextrose 50 % solution 12.5 g, 12.5 g, IntraVENous, PRN, Sharyn Amaya MD, 12.5 g at 06/10/25 0014 fidaxomicin (Dificid) tablet 200 mg, 200 mg, Per G Tube, BID, Grzegorz Chatterjee MD, 200 mg at 06/11/25 0846 FLUoxetine (PROzac) capsule 20 mg, 20 mg, Per G Tube, Daily, Grzegorz Chatterjee MD, 20 mg at 06/11/25 0846 furosemide (Lasix) tablet 20 mg, 20 mg, Per G Tube, Daily, Grzegorz Chatterjee MD, 20 mg at 06/11/25 0846 glucagon (human recombinant) injection 1 mg, 1 mg, IntraMUSCular, PRN, Sharyn Amaya MD glucose oral gel 15 g, 15 g, Oral, PRN, Sharyn Amaya MD heparin injection 1,200-2,000 Units, 1,200-2,000 Units, IntraCATHeter, PRN, RENITA Clifford CNP, 1,600 Units at 06/04/25 192 heparin injection 1,200-2,000 Units, 1,200-2,000 Units, IntraCATHeter, PRN, RENITA Clifford CNP, 1,600 Units at 06/04/25 192 heparin injection 1,200-2,000 Units, 1,200-2,000 Units, IntraCATHeter, PRN, Carmela Francois DO, 1,400 Units at 06/08/25 181 heparin injection 1,200-2,000 Units, 1,200-2,000 Units, IntraCATHeter, PRN, Carmela Francois DO, 1,200 Units at 06/08/25 1816 heparin injection 5,000 Units, 5,000 Units, SubCUTAneous, 2 times per day, Sharyn Amaya MD, 5,000 Units at 06/11/25 0847 insulin glargine (Lantus) injection 25 Units, 25 Units, SubCUTAneous, BID, Sharyn Amaya MD, 25 Units at 06/11/25 0847 Insulin Lispro (Humalog) injection 0-6 Units, 0-6 Units, SubCUTAneous, q6h, Grzegorz Chatterjee MD, 1 Units at 06/11/25 0615 ipratropium-albuterol (Duo-Neb) 0.5-2.5 mg/3 mL nebulizer solution 3 mL, 3 mL, Nebulization, q4h, RENITA Tyler CNP, 3 mL at 06/11/25 1139 miconazole (Micotin) 2 % powder, , Topical, BID, RENITA Gtz CNP, 1 Application at 06/11/25 0852 midodrine (Proamatine) tablet 10 mg, 10 mg, Per G Tube, TID, Grzegorz Chatterjee MD, 10 mg at 06/11/25 0846 morphine injection 1 mg, 1 mg, IntraVENous, q4h PRN, Geno Waddell MD, 1 mg at 06/07/25 1415 pantoprazole (ProtoNix) 40 mg in sodium chloride (PF) 0.9 % 10 mL injection, 40 mg, IntraVENous, Nightly, Grzegorz Chatterjee MD, 40 mg at 06/10/252033 polyethylene glycol (PEG) 3350 (Miralax) packet 17 g, 17 g, Oral, Daily PRN, Sharyn Amaya MD promethazine (Phenergan) tablet 12.5 mg, 12.5 mg, Oral, q6h PRN OR promethazine (Phenergan) injection 12.5 mg, 12.5 mg, IntraMUSCular, q6h PRN OR promethazine (Phenergan) suppository 12.5 mg, 12.5 mg, Rectal, q6h PRN, Sharyn Amaya MD sodium chloride 0.9 % infusion, 250 mL/hr, IntraVENous, PRN, Omid Orona MD sodium chloride 0.9 % infusion, 250 mL/hr, IntraVENous, PRN, Geno Waddell MD sodium chloride 0.9 % infusion, 250 mL/hr, IntraVENous, PRN, Tomy Hill MD sodium chloride 3 % hypertonic nebulizer solution 3 mL, 3 mL, Nebulization, BID, RENITA Tyler CNP, 3 mL at 06/11/25 0856 stomahesive in petrolatum (ET Mix), , Topical, PRN, RENITA Gtz CNP, Given at 06/08/25 1857 stomahesive in petrolatum (ET Mix), , Topical, 3 times per day, RENITA Gtz CNP, Given at 06/11/25 0539 [4] PRN medications: acetaminophen OR acetaminophen, albumin human, albuterol, dextrose 5 % and sodium chloride 0.45 %, dextrose, dextrose, glucagon (rDNA), glucose, heparin, heparin, heparin, heparin, morphine sulfate, polyethylene glycol (PEG) 3350, promethazine OR promethazine OR promethazine, sodium chloride, sodium chloride, sodium chloride, stomahesive in petrolatum [facility] Hospitalist Progress note [phone]: Please page wa [phone] for patient care issues. [phone]: Please page [facility] Hospitalist for any issues. Subjective: Admit Date: 06/01/2025 PCP: No primary care provider on file. Room#: 222-04/222-04 José Miguel Myers is a 75 y.o. 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 She was admitted to hospital on ICU floor given Vent status but followed by hospital medicine, pulmonology and nephrology during stay. Size Stamper consulted for management of tube feeding = in which she take Nephro Carb steady tube feeds. During admission she required AC/VC ventilation settings and unable to tolerate weaning to PSV due to volume status, deconditioning, anemia and numerous co-morbidities, During admission, she developed C diff requiring insertion of fecal management system due to current Stage III sacral ulcer which was removed due to intolerance. Currently treated with Dificid Her dialysis port appeared red, removed on 06/06 and cultured. She also developed worsening cough with sputum production, repeat imaging showed bilateral effusions. Underwent thoracentesis, was placed on cefepime Interval History: No overnight issues. Noted to have low blood pressures overnight, per nursing she had 2-3 episodes of loose bowel movements Hemoglobin 7.7, sodium of 129 06/09-patient reports feeling better. Per nursing diarrhea is slowing down. Blood pressures improving Hemoglobin initially was noted to be low at 6.9, repeat hemoglobin came up to 7.3 Sodium improving, creatinine improving 06/10- and son at bedside. Patient responds by nodding her head. Denies any dizziness, chest pain, abdominal pain, nausea Diarrhea improving Blood pressures improving Hemoglobin down to 6.8 today Patient consented for blood, family agreeable 06/11 no new problems. Hemoglobin improving Blood culture negative Diet, tube feeding no tray PEG; Nepro w/CARB Steady; Continuous; Yes; 10; Q 4 Hours; 25; 45 24HR INTAKE/OUTPUT: Intake/Output Summary (Last 24 hours) at 06/11/2025 1038 Last data filed at 06/11/2025 0616 Gross per 24 hour Intake 2019.5 ml Output -- Net 2019.5 ml LABS: CBC: Recent Labs 06/09/25 0633 06/09/25 0735 06/10/25 0508 06/10/25 1238 06/11/25 0552 WBC 6.7 -- 6.4 -- 7.4 RBC 2.66* -- 2.65* -- 3.16* HGB 6.9* < > 6.8* 8.1* 8.3* HCT 22.0* < > 22.4* 25.8* 25.8* MCV 82.7 -- 84.5 -- 81.6 RDW 19.1* -- 19.1* -- 18.0* PLT 230 -- 228 -- 235 < > = values in this interval not displayed. BMP: Recent Labs 06/09/25 0541 06/10/25 0508 06/11/25 0552 NA 136 134* 132* K 3.8 3.9 3.9 CL 99 99 99 CO2 26 25 22* BUN 26* 38* 49* CREATININE 2.37* 3.44* 4.10* GLUCOSE 101 121* 149* CALCIUM 9.1 9.0 9.2 ANIONGAP 11 10 11 LIVER PROFILE: Recent Labs 06/09/25 0541 06/10/25 0508 06/11/25 0552 AST 18 25 26 ALT 9 10 12 BILITOT 0.5 0.5 0.8 ALKPHOS 117 112 117 PROT 6.6 6.4 6.6 PT/INR: No results for input(s): "PROTIME", "INR" in the last 72 hours. CARDIAC ENZYMES: No results for input(s): "TROPONINI" in the last 72 hours. Procalcitonin: No results found for: "PROCAL" @RISRSLTSPECIALTY@ Objective: Vitals: BP 132/60 Pulse 65 Temp 37.1 C (98.7 F) Resp 21 Ht 5' 5" (1.651 m) Wt 230 lb 9.6 oz (105 kg) SpO2 99% BMI 38.37 kg/m Pulse Ox: SpO2 Av.4 % Min: 97 % Max: 100 % Supplemental O2: 06/11/2025 General appearance: No apparent distress, appears stated age, AAOX3 Oral: Tongue is semi-moist Cardiovascular: S1/S2 heard, RRR Respiratory: Clear to auscultation bilaterally, tracheostomy site red and inflamed Abdomen: Soft, non-tender, non-distended bowel sounds positive Musculoskeletal: Bilateral venous stasis changes Skin: Tunneled line removed, dressing in place, no redness or erythema Medications: Continuous Meds[1] Scheduled Meds[2] Assessment Acute on chronic anemia s/p 1 unit of PRBC Chronic bilateral pleural effusions-s/p thoracentesis Pneumonia Chronic respiratory failure tracheostomy dependent Concern for tunneled line infection, removed line on 06/06, line holiday till 06/08 if cultures negative, would need new TDC, if not may need temporary dialysis catheter C. difficile infection on Dificid from 06/03 Hypokalemia Pressure ulcers present on admission Chronic problems ESRD on HD chronic heart failure Severe malnutrition GERD Anxiety Depression Type 2 diabetes with neuropathy Chronic candidiasis Plan Follow-up on cultures from tunneled line catheter, line holiday till 06/08, follow-up on blood cultures negative received temporary dialysis catheter on 06/08 ID following Sputum cultures growing Serratia, stenotrophomonas, Pseudomonas. Tracheal culture also growing Pseudomonas, continue cefepime per ID recommendations Continue Dificid for 10 days per ID Blood pressure improving, continue Coreg, continue midodrine Pulmonary following Nephrology following -am labs, replace lytes prn -increase activity Diet Diet, tube feeding no tray PEG; Nepro w/CARB Steady; Continuous; Yes; 10; Q 4 Hours; 25; 45 DVT Prophylaxis [] Lovenox, [x] Heparin, [] SCDs, [] Ambulation [] Already on Anticoagulation GI Prophylaxis [] PPI, [] H2 Herb, [] Carafate, [] Diet/Tube Feeds Code Status Full Code MDM [] Low, [] Moderate,[x] High Patient's risk as above Anticipated Discharge - Date - - Location - Skilled Facility - Pending the following -clinical improvement, ID recommendations on discharge antibiotics Total time spent (which include face to face and non face to face encounters) : 50 minutes Toxic drug monitoring/narrow therapeutic index drug monitoring : # Drug name : # Route administered : # Method of monitoring : No emergency contact information on file. Advance Directive: Full Code Discharge planning: TBD Raine Etienne MD Division of Hospitalist Medicine Inpatient Medical Services/[facility] [1] dextrose 5 % and sodium chloride 0.9 %, 75 mL/hr, Last Rate: Stopped (06/10/25 1900) [2] atorvastatin, 40 mg, Per G Tube, Daily busPIRone, 5 mg, Per G Tube, TID carvedilol, 3.125 mg, Per G Tube, BID WC cefepime, 1,000 mg, IntraVENous, q12h chlorhexidine, , Topical, Daily fidaxomicin, 200 mg, Per G Tube, BID FLUoxetine, 20 mg, Per G Tube, Daily furosemide, 20 mg, Per G Tube, Daily heparin, 5,000 Units, SubCUTAneous, 2 times per day insulin glargine, 25 Units, SubCUTAneous, BID insulin lispro, 0-6 Units, SubCUTAneous, q6h ipratropium-albuterol, 3 mL, Nebulization, q4h miconazole, , Topical, BID midodrine, 10 mg, Per G Tube, TID pantoprazole (ProtoNix) 40 mg in sodium chloride (PF) 0.9 % 10 mL injection, 40 mg, IntraVENous, Nightly sodium chloride, 3 mL, Nebulization, BID stomahesive in petrolatum, , Topical, 3 times per day [facility] Respiratory Care Department Progress Note Spontaneous Awakening Trial Wean Screen SpO2>/=88%: Yes (06/11/25320) FiO2</=50%: Yes (06/11/25320) PEEP </=8cmH2O: Yes (06/11/25320) HR <140 BPM: Yes (06/11/25320) RR </= 35 breaths/min: Yes (06/11/25320) MAP >/= 65mmHg: Yes (06/11/25320) Arterial pH >7.30: Yes (06/09/25330) Safety Screen Spontaneous Breathing Trial (SBT - RT) : SBT Held - Chronic Ventilator Dependent (06/11/25320) Spontaneous Breathing Trial Vent Settings Vent Mode: Assist control (06/10/252101) Mandatory Type: VC+ (06/10/252101) Resp Rate (Set): 14 (06/09/251520) Vt (Set, mL): 450 mL (06/09/251520) FiO2 (%): 30 % (06/10/252101) PEEP/CPAP (cm H2O): 5 cm H20 (06/09/251520) Inspiratory Time (sec): 0.9 sec (06/09/251520) Vitals MAP (mmHg): 83 (06/10/252101) Heart Rate: 67 (06/10/252101) Resp: 16 (06/10/252101) SpO2: 99 % (06/10/252101) Suctioning/Secretions Secretion Amount: Small (06/10/252049) Secretion Color: Clear, White (06/10/252049) Secretion Consistency: Thick (06/10/251704) ABG results No results for input(s): "PHART", "WDV3ORI", "PO2ART", "ZLQ2CCR", "SO2ART", "K7MVWRNV" in the last 72 hours. Does this patient meet criteria for termination of mechanical ventilation No - Chronic Vent Dependent Comments: Thank you for involving Respiratory in the care of this patient, [facility] Nephrology Progress Note Subjective/ 75 y.o. year old female who we are seeing in consultation for ESRD and management of HD. Follows with Dr. Loerdo and an outpatient HD schedule M- at [facility]. 06/04: last iHD tx, 1.6 L removed 06/06: TDC removed for suspicion of infection 06/08: Temp HD catheter placed by Icu followed by dialysis. Laying bed, alert Nods head and attempts to mouth words Chronic trach to vent and PEG BP stable, on the low side Denies pain No LE edema No change in PFSH All data labs/interval notes and overnight issues are reviewed Objective/ Vitals: 06/10/25 1130 06/10/25 1134 06/10/25 1204 06/10/25 1558 BP: 137/52 141/53 Pulse: 64 62 Resp: 16 14 16 Temp: 36.7 C (98.1 F) TempSrc: SpO2: 99% Weight: Height: 24HR INTAKE/OUTPUT: Intake/Output Summary (Last 24 hours) at 06/10/2025 1632 Last data filed at 06/10/2025 1134 Gross per 24 hour Intake 1697.5 ml Output -- Net 1697.5 ml Wt Readings from Last 3 Encounters: 06/08/25 105 kg (230 lb 9.6 oz) Constitutional: Alert, awake, obese HEENT: no pallor/cyanosis or icterus Cardiovascular: S1, S2 without m/r/g Respiratory: CTA, B/l equal air entry trach present Abdomen: +bs, soft, Non tender non distended Ext: No LE edema No CVA tenderness Neurologic Alert and oriented; answers questions Psychiatric Calm and cooperative normal modd and affect Neck: supple, no thyroid enlargement, no JVD elevation Skin: warm, moist, no rashes Temp HD catheter RIJ. Medications: Scheduled Meds[1] Continuous Infusions:Continuous Meds[2] PRN Meds:PRN Meds[3] Data/ Recent Labs 06/08/25 0115 06/09/25 0633 06/09/25 0735 06/10/25 0508 06/10/25 1238 WBC 6.5 6.7 -- 6.4 -- HGB 7.7* 6.9* 7.3* 6.8* 8.1* HCT 24.6* 22.0* 22.8* 22.4* 25.8* MCV 83.1 82.7 -- 84.5 -- PLT 236 230 -- 228 -- Recent Labs 06/08/25 0115 06/09/25 0541 06/10/25 0508 NA 129* 136 134* K 3.8 3.8 3.9 CL 95* 99 99 CO2 24 26 25 GLUCOSE 150* 101 121* BUN 51* 26* 38* CREATININE 4.25* 2.37* 3.44* Albumin: No components found for: "LABALBU" Calcium: Lab Results Component Value Date CALCIUM 9.0 06/10/2025 Ionized Calcium: No components found for: "IONCA" Magnesium: No results found for: "MG" Phosphorus: No results found for: "PHOS" / y.o. female with ESRD N18.6 C. Difficile A04.72 Anemia D63.1 Volume overload E87.70 Hyponatremia E87.1 Chronic respiratory failure J96.10 Diabetes E11.22 Dependence on hemodialysis RECOMMENDATIONS: - HD schedule M-F at [facility], follows with Dr. Loredo. S/p iHD 06/04 for 1.6L UF. -S/p temp HD catheter placement followed by HD 06/08. Next HD tomorrow. -Tunneled HD catheter removed on Wednesday for suspicion of infection. Catheter and Blood cultures pending. ID following for management of antibiotics - Okay for Midodrine 10 mg 1 hour prior to iHD for BP support during fluid removal. - Electrolytes stable during line holiday, will improve with dialysis today continue to monitor trends - Anemia -Transfuse to keep Hgb > 7.0 ESRD hgb goal > 10. Check Iron studies. - Avoid nephrotoxins and IV contrast dye - Dose all meds per GFR < 15 - We will follow closely - D/w RN at bedside. [1] atorvastatin, 40 mg, Per G Tube, Daily busPIRone, 5 mg, Per G Tube, TID carvedilol, 3.125 mg, Per G Tube, BID WC cefepime, 1,000 mg, IntraVENous, q12h chlorhexidine, , Topical, Daily fidaxomicin, 200 mg, Per G Tube, BID FLUoxetine, 20 mg, Per G Tube, Daily furosemide, 20 mg, Per G Tube, Daily heparin, 5,000 Units, SubCUTAneous, 2 times per day insulin glargine, 25 Units, SubCUTAneous, BID insulin lispro, 0-6 Units, SubCUTAneous, q6h ipratropium-albuterol, 3 mL, Nebulization, q4h miconazole, , Topical, BID midodrine, 10 mg, Per G Tube, TID pantoprazole (ProtoNix) 40 mg in sodium chloride (PF) 0.9 % 10 mL injection, 40 mg, IntraVENous, Nightly sodium chloride, 3 mL, Nebulization, BID stomahesive in petrolatum, , Topical, 3 times per day [2] dextrose 5 % and sodium chloride 0.9 %, 75 mL/hr, Last Rate: 75 mL/hr (06/10/25 0107) [3] PRN medications: acetaminophen OR acetaminophen, albumin human, albuterol, dextrose 5 % and sodium chloride 0.45 %, dextrose, dextrose, glucagon (rDNA), glucose, heparin, heparin, heparin, heparin, morphine sulfate, polyethylene glycol (PEG) 3350, promethazine OR promethazine OR promethazine, sodium chloride, sodium chloride, sodium chloride, stomahesive in petrolatum [facility] Hospitalist Progress note [phone]: Please page wa [phone]) for patient care issues. [phone]: Please page [facility] Hospitalist for any issues. Subjective: Admit Date: 06/01/2025 PCP: No primary care provider on file. Room#: [id number] José Miguel Myers is a 75 y.o. 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 She was admitted to hospital on ICU floor given Vent status but followed by hospital medicine, pulmonology and nephrology during stay. Size Stamper consulted for management of tube feeding = in which she take Nephro Carb steady tube feeds. During admission she required AC/VC ventilation settings and unable to tolerate weaning to PSV due to volume status, deconditioning, anemia and numerous co-morbidities, During admission, she developed C diff requiring insertion of fecal management system due to current Stage III sacral ulcer which was removed due to intolerance. Currently treated with Dificid Her dialysis port appeared red, removed on 06/06 and cultured. She also developed worsening cough with sputum production, repeat imaging showed bilateral effusions. Underwent thoracentesis, was placed on cefepime Interval History: No overnight issues. Noted to have low blood pressures overnight, per nursing she had 2-3 episodes of loose bowel movements Hemoglobin 7.7, sodium of 129 06/09-patient reports feeling better. Per nursing diarrhea is slowing down. Blood pressures improving Hemoglobin initially was noted to be low at 6.9, repeat hemoglobin came up to 7.3 Sodium improving, creatinine improving 06/10- and son at bedside. Patient responds by nodding her head. Denies any dizziness, chest pain, abdominal pain, nausea Diarrhea improving Blood pressures improving Hemoglobin down to 6.8 today Patient consented for blood, family agreeable Diet, tube feeding no tray PEG; Nepro w/CARB Steady; Continuous; Yes; 10; Q 4 Hours; 25; 45 24HR INTAKE/OUTPUT: Intake/Output Summary (Last 24 hours) at 06/10/2025 0941 Last data filed at 06/10/2025 0656 Gross per 24 hour Intake 1755 ml Output -- Net 1755 ml LABS: CBC: Recent Labs 06/08/25 0115 06/09/25 0633 06/09/25 0735 06/10/25 0508 WBC 6.5 6.7 -- 6.4 RBC 2.96* 2.66* -- 2.65* HGB 7.7* 6.9* 7.3* 6.8* HCT 24.6* 22.0* 22.8* 22.4* MCV 83.1 82.7 -- 84.5 RDW 19.2* 19.1* -- 19.1* PLT 236 230 -- 228 BMP: Recent Labs 06/08/25 0115 06/09/25 0541 06/10/25 0508 NA 129* 136 134* K 3.8 3.8 3.9 CL 95* 99 99 CO2 24 26 25 BUN 51* 26* 38* CREATININE 4.25* 2.37* 3.44* GLUCOSE 150* 101 121* CALCIUM 9.1 9.1 9.0 ANIONGAP 10 11 10 LIVER PROFILE: Recent Labs 06/08/25 01106/09/25 0541 06/10/25 0508 AST 16 18 25 ALT 9 9 10 BILITOT 0.5 0.5 0.5 ALKPHOS 118 117 112 PROT 6.5 6.6 6.4 PT/INR: No results for input(s): "PROTIME", "INR" in the last 72 hours. CARDIAC ENZYMES: No results for input(s): "TROPONINI" in the last 72 hours. Procalcitonin: No results found for: "PROCAL" @RISRSLTSPECIALTY@ Objective: Vitals: BP 148/66 Pulse 70 Temp 36.9 C (98.4 F) Resp 18 Ht 5' 5" (1.651 m) Wt 230 lb 9.6 oz (105 kg) SpO2 99% BMI 38.37 kg/m Pulse Ox: SpO2 Av.7 % Min: 96 % Max: 100 % Supplemental O2: 06/10/2025 General appearance: No apparent distress, appears stated age, AAOX3 Oral: Tongue is semi-moist Cardiovascular: S1/S2 heard, RRR Respiratory: Clear to auscultation bilaterally, tracheostomy site red and inflamed Abdomen: Soft, non-tender, non-distended bowel sounds positive Musculoskeletal: Bilateral venous stasis changes Skin: Tunneled line removed, dressing in place, no redness or erythema Medications: Continuous Meds[1] Scheduled Meds[2] Assessment Acute on chronic anemia s/p 1 unit of PRBC Chronic bilateral pleural effusions-s/p thoracentesis Pneumonia Chronic respiratory failure tracheostomy dependent Concern for tunneled line infection, removed line on 06/06, line holiday till 06/08 if cultures negative, would need new TDC, if not may need temporary dialysis catheter C. difficile infection on Dificid from 06/03 Hypokalemia Pressure ulcers present on admission Chronic problems ESRD on HD chronic heart failure Severe malnutrition GERD Anxiety Depression Type 2 diabetes with neuropathy Chronic candidiasis Plan Follow-up on cultures from tunneled line catheter, line holiday till 06/08, follow-up on blood cultures negative at 48 hours, wrist 8 temporary dialysis catheter on 06/08 ID following Sputum cultures growing few gram-positive bacilli, rare gram-positive cocci. Continue cefepime Continue Dificid for 10 days Blood pressure improving this morning, resume Coreg, continue midodrine Pulmonary following Nephrology following -am labs, replace lytes prn -increase activity Diet Diet, tube feeding no tray PEG; Nepro w/CARB Steady; Continuous; Yes; 10; Q 4 Hours; 25; 45 DVT Prophylaxis [] Lovenox, [x] Heparin, [] SCDs, [] Ambulation [] Already on Anticoagulation GI Prophylaxis [] PPI, [] H2 Herb, [] Carafate, [] Diet/Tube Feeds Code Status Full Code MDM [] Low, [] Moderate,[x] High Patient's risk as above Anticipated Discharge - Date - - Location - Skilled Facility - Pending the following -clinical improvement, budget consultant recommendations Total time spent (which include face to face and non face to face encounters) : 52 minutes Toxic drug monitoring/narrow therapeutic index drug monitoring : # Drug name : # Route administered : # Method of monitoring : No emergency contact information on file. Advance Directive: Full Code Discharge planning: TBD Raine Etienne MD Division of Hospitalist Medicine Inpatient Medical Services/[facility] [1] dextrose 5 % and sodium chloride 0.9 %, 75 mL/hr, Last Rate: 75 mL/hr (06/10/25 0107) [2] atorvastatin, 40 mg, Per G Tube, Daily busPIRone, 5 mg, Per G Tube, TID [Held by provider] carvedilol, 3.125 mg, Per G Tube, BID WC cefepime, 1,000 mg, IntraVENous, q12h chlorhexidine, , Topical, Daily fidaxomicin, 200 mg, Per G Tube, BID FLUoxetine, 20 mg, Per G Tube, Daily furosemide, 20 mg, Per G Tube, Daily heparin, 5,000 Units, SubCUTAneous, 2 times per day insulin glargine, 25 Units, SubCUTAneous, BID insulin lispro, 0-6 Units, SubCUTAneous, q6h ipratropium-albuterol, 3 mL, Nebulization, q4h miconazole, , Topical, BID midodrine, 10 mg, Per G Tube, TID pantoprazole (ProtoNix) 40 mg in sodium chloride (PF) 0.9 % 10 mL injection, 40 mg, IntraVENous, Nightly sodium chloride, 3 mL, Nebulization, BID stomahesive in petrolatum, , Topical, 3 times per day I have discussed with the patient ,family the rationale for blood component transfusion; its benefits in treating or preventing fatigue, organ damage, or ; and its risk which includes mild transfusion reactions, rare risk of blood borne infection, or more serious but rare reactions. I have discussed the alternatives to transfusion, including the risk and consequences of not receiving transfusion. The patient had an opportunity to ask questions and had agreed to proceed with transfusion of blood components. DR Etienne [facility] Respiratory Care Department Progress Note Spontaneous Awakening Trial Wean Screen SpO2>/=88%: Yes (06/10/25247) FiO2</=50%: Yes (06/10/25247) PEEP </=8cmH2O: Yes (06/10/25247) HR <140 BPM: Yes (06/10/25247) RR </= 35 breaths/min: Yes (06/10/25247) MAP >/= 65mmHg: Yes (06/10/25247) Arterial pH >7.30: Yes (06/09/25330) Safety Screen Spontaneous Breathing Trial (SBT - RT) : SBT Held - Chronic Ventilator Dependent (06/10/25247) Spontaneous Breathing Trial Vent Settings Vent Mode: Assist control (06/09/252002) Mandatory Type: VC+ (06/09/252002) Resp Rate (Set): 14 (06/09/251520) Vt (Set, mL): 450 mL (06/09/251520) FiO2 (%): 30 % (06/09/252002) PEEP/CPAP (cm H2O): 5 cm H20 (06/09/251520) Inspiratory Time (sec): 0.9 sec (06/09/251520) Vitals MAP (mmHg): 68 (06/09/252002) Heart Rate: 62 (06/09/252002) Resp: 16 (06/09/252002) SpO2: 100 % (06/09/252002) Suctioning/Secretions Secretion Amount: Small (06/09/252002) Secretion Color: Clear, White (06/09/252002) Secretion Consistency: Thick (06/09/25 124) ABG results No results for input(s): "PHART", "OEX1JHR", "PO2ART", "VUX5WIZ", "SO2ART", "X4VUATOG" in the last 72 hours. Does this patient meet criteria for termination of mechanical ventilation No - Chronic Vent Dependent Comments: Thank you for involving Respiratory in the care of this patient, [facility] Nephrology Progress Note Subjective/ 75 y.o. year old female who we are seeing in consultation for ESRD and management of HD. Follows with Dr. Loredo and an outpatient HD schedule M- at [facility]. 06/04: last iHD tx, 1.6 L removed 06/06: TDC removed for suspicion of infection 06/08: Temp HD catheter placed by Icu followed by dialysis. Laying bed, alert Nods head and attempts to mouth words Chronic trach to vent and PEG Still having diarrhea, but not as much BP stable, on the low side Denies pain No LE edema No change in PFSH All data labs/interval notes and overnight issues are reviewed Objective/ Vitals: 06/09/25 1124 06/09/25 1201 06/09/25 1520 06/09/25 1521 BP: 129/50 BP Location: Patient Position: Pulse: 69 59 58 58 Resp: 15 14 Temp: TempSrc: SpO2: 100% 100% 100% 100% Weight: Height: 24HR INTAKE/OUTPUT: Intake/Output Summary (Last 24 hours) at 06/09/2025 1619 Last data filed at 06/09/2025 1200 Gross per 24 hour Intake 2205 ml Output 2500 ml Net -295 ml Wt Readings from Last 3 Encounters: 06/08/25 105 kg (230 lb 9.6 oz) Constitutional: Alert, awake, obese HEENT: no pallor/cyanosis or icterus Cardiovascular: S1, S2 without m/r/g Respiratory: CTA, B/l equal air entry trach present Abdomen: +bs, soft, Non tender non distended Ext: No LE edema No CVA tenderness Neurologic Alert and oriented; answers questions Psychiatric Calm and cooperative normal modd and affect Neck: supple, no thyroid enlargement, no JVD elevation Skin: warm, moist, no rashes Temp HD catheter RIJ. Medications: Scheduled Meds[1] Continuous Infusions:Continuous Meds[2] PRN Meds:PRN Meds[3] Data/ Recent Labs 06/07/2533406/08/2511406/09/25 0633 06/09/25 0735 WBC 7.4 6.5 6.7 -- HGB 7.5* 7.7* 6.9* 7.3* HCT 24.4* 24.6* 22.0* 22.8* MCV 84.4 83.1 82.7 -- PLT 234 236 230 -- Recent Labs 06/07/25 03306/08/25 0115 06/09/25 0541 NA 133* 129* 136 K 3.7 3.8 3.8 CL 96* 95* 99 CO2 26 24 26 GLUCOSE 119* 150* 101 BUN 40* 51* 26* CREATININE 3.68* 4.25* 2.37* Albumin: No components found for: "LABALBU" Calcium: Lab Results Component Value Date CALCIUM 9.06/09/2025 Ionized Calcium: No components found for: "IONCA" Magnesium: No results found for: "MG" Phosphorus: No results found for: "PHOS" Assessment/ 75 y.o. female with ESRD N18.6 C. Difficile A04.72 Anemia D63.1 Volume overload E87.70 Hyponatremia E87.1 Chronic respiratory failure J96.10 Diabetes E11.22 Dependence on hemodialysis RECOMMENDATIONS: - HD schedule M-F at [facility], follows with Dr. Loredo. S/p iHD 06/04 for 1.6L UF. -S/p temp HD catheter placement followed by HD yesterday -Tunneled HD catheter removed on Wednesday for suspicion of infection. Catheter and Blood cultures pending. ID following for management of antibiotics - Okay for Midodrine 10 mg 1 hour prior to iHD for BP support during fluid removal. - Electrolytes stable during line holiday, will improve with dialysis today continue to monitor trends - Anemia -Transfuse to keep Hgb > 7.0 ESRD hgb goal > 10. Check Iron studies. - Avoid nephrotoxins and IV contrast dye - Dose all meds per GFR < 15 - We will follow closely - D/w RN at bedside. [1] atorvastatin, 40 mg, Per G Tube, Daily busPIRone, 5 mg, Per G Tube, TID [Held by provider] carvedilol, 3.125 mg, Per G Tube, BID WC cefepime, 1,000 mg, IntraVENous, q12h chlorhexidine, , Topical, Daily fidaxomicin, 200 mg, Per G Tube, BID FLUoxetine, 20 mg, Per G Tube, Daily furosemide, 20 mg, Per G Tube, Daily heparin, 5,000 Units, SubCUTAneous, 2 times per day insulin glargine, 25 Units, SubCUTAneous, BID insulin lispro, 0-6 Units, SubCUTAneous, q6h ipratropium-albuterol, 3 mL, Nebulization, q4h miconazole, , Topical, BID midodrine, 10 mg, Per G Tube, TID pantoprazole (ProtoNix) 40 mg in sodium chloride (PF) 0.9 % 10 mL injection, 40 mg, IntraVENous, Nightly sodium chloride, 3 mL, Nebulization, BID stomahesive in petrolatum, , Topical, 3 times per day [2] [3] PRN medications: acetaminophen OR acetaminophen, albumin human, albuterol, dextrose 5 % and sodium chloride 0.45 %, dextrose, dextrose, glucagon (rDNA), glucose, heparin, heparin, heparin, heparin, morphine sulfate, polyethylene glycol (PEG) 3350, promethazine OR promethazine OR promethazine, sodium chloride, sodium chloride, stomahesive in petrolatum Images from the original note were not included. [facility] - Infectious Diseases Attending Progress Note Subjective: Follow up for pneumonia due to Pseudomonas aeruginosa, Serratia marcescens, and Proteus spp., CDAD, infected HD catheter due to Serratia marcescens-s/p removal of cath on 06/06/25 and chronic respiratory failure, ventilator dependence. She was alert, laying on bed; denied fever, abdominal pain, SOB, she underwent left thoracentesis on 06/07, she appeared debilitated and ill. She was admitted on 06/01/25 with low hemoglobin (6.5), increased tracheal secretion, diarrhea and weakness; she was found to have C diff associated diarrhea; on 06/06/25, she was found to have redness on right chest HD catheter with tenderness and the catheter was removed, blood cxs were obtained on 06/07/25. She has h/o chronic tracheostomy and on vent therapy, PEG tube feeding, ESRD on hemodialysis, hypertension, hyperlipidemia coronary artery disease status post PCI with stent in September 2023, type 2 diabetes mellitus with polyneuropathy, chronic CHF. She was examined; notes, labs, imaging were reviewed; treatment plan was discussed; clinical informations were documented in electronic record. Objective: Vitals: Patient Vitals for the past 24 hrs: BP Temp Temp src Pulse Resp SpO2 Weight 06/09/25 1201 129/50 -- -- 59 -- 100 % -- 06/09/25 1124 -- -- -- 69 -- 100 % -- 06/09/25 1116 -- -- -- 63 17 100 % -- 06/09/25 0739 (!) 130/46 -- -- 67 -- 99 % -- 06/09/25 0738 -- 36.9 C (98.4 F) Oral 69 -- 99 % -- 06/09/25 0719 -- -- -- 63 -- 99 % -- 06/09/25 0715 -- -- -- 62 18 99 % -- 09/330 -- -- -- 72 19 100 % -- 06/08/254 -- -- -- 72 19 99 % -- 06/08/252021 130/50 37.2 C (99 F) Oral 70 20 100 % -- 06/08/252002 -- -- -- 65 18 100 % -- 06/08/25 1812 104/54 37.1 C (98.8 F) -- 67 18 100 % -- 06/08/25 1804 (!) 106/37 -- -- 61 -- -- -- 06/08/25 1800 (!) 106/37 -- -- 65 -- -- -- 06/08/25 1745 (!) 105/40 -- -- 61 -- -- -- 06/08/25 1733 -- -- -- 62 -- 100 % -- 06/08/25 1730 100/64 -- -- 61 -- -- -- 06/08/25 1715 (!) 102/41 -- -- 62 -- -- -- 06/08/25 1700 132/77 -- -- 62 -- -- -- 06/08/25 1645 (!) 109/40 -- -- 60 -- -- -- 06/08/25 1630 (!) 121/38 -- -- 59 -- -- -- 06/08/25 1615 (!) 124/43 -- -- 57 -- -- -- 06/08/25 1600 (!) 120/47 -- -- 57 20 100 % -- 06/08/25 1545 (!) 124/42 -- -- 58 -- -- -- 06/08/25 1530 (!) 119/42 -- -- 59 -- -- -- 06/08/25 1515 120/56 -- -- 61 -- -- -- 06/08/25 1500 117/59 -- -- 67 -- -- -- 06/08/25 1445 (!) 117/42 -- -- 60 -- -- -- 06/08/25 1430 (!) 124/41 -- -- 59 -- -- -- 06/08/25 1415 (!) 126/48 -- -- 61 -- -- -- 06/08/25 1406 (!) 137/49 -- -- 62 -- -- -- 06/08/25 1404 (!) 121/41 -- -- 63 -- -- -- 06/08/25 1350 132/51 37.3 C (99.1 F) -- 65 20 99 % 105 kg (230 lb 9.6 oz) Physical Exam Vitals and nursing notes reviewed. Constitutional: Appearance: She is obese, debilitated and chronically ill-appearing. HENT: Head: Normocephalic, without obvious abnormality, atraumatic. Neck: Trachea: Tracheostomy present. Comments: on vent Cardiovascular: Rate and Rhythm: Regular rhythm. Tachycardia present. Pulses: Normal pulses. Heart sounds: Normal heart sounds, S1 normal and S2 normal. Pulmonary: Effort: Pulmonary effort is normal. Breath sounds: Diminished breath sounds. Rales present. No wheezing or rhonchi. Comments: On Vent AC/VC Abdominal: Palpations: Abdomen is soft. non-tender, nondistended. Bowel sounds normal. Musculoskeletal: General: Swelling present. Skin: Comments: Multiple pressure wounds on the coccyx, sacrum and lower extremity Neurological: No focal deficits, cranial nerves grossly intact, sensations intact Psychiatric : Mood and effect normal , alert and oriented times 3. Labs: Recent Labs 06/07/2533406/08/2511406/09/25 0541 NA 133* 129* 136 K 3.7 3.8 3.8 CL 96* 95* 99 CO2 26 24 26 BUN 40* 51* 26* CREATININE 3.68* 4.25* 2.37* GLUCOSE 119* 150* 101 CALCIUM 9.4 9.1 9.1 PROT 6.8 6.5 6.6 BILITOT 0.6 0.5 0.5 ALKPHOS 123 118 117 AST 19 16 18 ALT 9 9 9 Recent Labs 06/07/2533406/08/25 0115 06/09/25 0633 06/09/25 0735 WBC 7.4 6.5 6.7 -- HGB 7.5* 7.7* 6.9* 7.3* HCT 24.4* 24.6* 22.0* 22.8* PLT 234 236 230 -- Micro: No results for input(s): "COVID19" in the last 72 hours. Collected Updated Procedure Result Status 06/07/2025 1129 06/07/2025 1142 Aerobic and Anaerobic Culture with Stain [[id number]] Body Fluid from Pleural Cavity, Left In process Component Value No component results 06/07/2025 1129 06/09/2025 0748 Culture, Aerobic Bacteria with Gram Stain [[id number]] Body Fluid from Pleural Cavity, Left Preliminary result Component Value Culture No growth at 48 hours P Gram Stain Result Few Polymorphonuclear leukocytes per low power field P No organisms seen P 06/07/2025 1129 06/07/2025 1142 Anaerobic culture [[id number]] Body Fluid from Pleural Cavity, Left In process Component Value No component results 06/07/2025 1025 06/09/2025 1301 Blood culture Site #2 - Suspected Infection [[id number]] Blood, Venous Preliminary result Component Value Blood Culture No growth at 48 hours P 06/07/2025 1014 06/09/2025 1301 Blood culture Site #1 - Suspected Infection [[id number]] Blood, Venous Preliminary result Component Value Blood Culture No growth at 48 hours P 06/06/2025 1732 06/08/2025 1413 Respiratory culture and Stain [[id number]] (Abnormal) Sputum Preliminary result Component Value Respiratory culture Few respiratory dave present. P Moderate Serratia marcescens Abnormal P Moderate Stenotrophomonas maltophilia Abnormal P Moderate Pseudomonas aeruginosa Abnormal P Gram Stain Result Many Polymorphonuclear leukocytes per low power field Abnormal P Rare Epithelial cells per low power field Abnormal P Moderate Gram negative bacilli Abnormal P Few Gram positive bacilli Abnormal P Rare Gram positive cocci Abnormal P 06/06/2025 1732 06/07/2025 1158 Pneumonia PCR Panel [[id number]] (Abnormal) Sputum Final result Component Value Staphylococcus aureus Not Detected Streptococcus agalactiae Not Detected Streptococcus pneumoniae Not Detected Streptococcus pyogenes Not Detected Haemophilus influenzae Not Detected Moraxella catarrhalis Not Detected Acinetobacter baumannii complex Not Detected Enterobacter cloacae complex Not Detected Escherichia coli Not Detected Klebsiella (Enterobacter) aerogenes Not Detected Klebsiella oxytoca Not Detected Klebsiella pneumoniae Not Detected Proteus spp Detected Abnormal Pseudomonas aeruginosa Detected Abnormal Serratia marcescens Detected Abnormal Chlamydia pneumoniae Not Detected Legionella pneumophila Not Detected Mycoplasma pneumoniae Not Detected Adenovirus Not Detected Coronavirus Not Detected Human Metapneumovirus Not Detected Human Rhinovirus/Enterovirus Not Detected Influenza A Not Detected Influenza B Not Detected Parainfluenza virus Not Detected Respiratory Syncytial Virus Not Detected 06/06/2025 1429 06/09/2025 0801 Culture, Cath Tip [[id number]] (Abnormal) Foreign Body from Cannula Final result Component Value Culture >15 CFU Serratia marcescens Abnormal This organism possesses an ampC beta-lactamase. For serious infections outside of the urinary tract, third generation cephalosporins may not be effective, even if test results indicate the organism is susceptible. 06/02/2025173506/02/20252058 Gastrointestinal PCR Panel [[id number]] Stool from Per Rectum Final result Component Value Campylobacter Not Detected Plesiomonas shigelloides Not Detected Salmonella Not Detected Vibrio species Not Detected Vibrio cholerae Not Detected Yersinia enterocolitica Not Detected Enterotoxigenic E coli (ETEC) Not Detected Shiga toxin-producing E coli (STEC) Not Detected Shigella/Enteroinvasive E coli (EIEC) Not Detected Cryptosporidium Not Detected Cyclospora cayetanensis Not Detected Entamoeba histolytica Not Detected Giardia lamblia Not Detected Adenovirus F 40/41 Not Detected Astrovirus Not Detected Norovirus GI/GII Not Detected Rotavirus A Not Detected Sapovirus Not Detected 06/02/2025 1736 06/02/20251954 C. DIFFICILE by PCR with Reflex to EIA [[id number]] (Abnormal) Stool from Per Rectum Final result Component Value C. difficile toxin PCR Detected Abnormal 06/02/2025 1736 06/02/2025 2208 C. difficile Toxins EIA [[id number]] (Abnormal) Stool from Per Rectum Final result Component Value C difficile Toxins A+B, EIA Positive Abnormal Lines: RIJ HD cath (06/08/25) Radiography/Echo/Other: XR chest 1 view [[id number]] Collected: 06/08/25 140 Order Status: Completed Updated: 06/08/251404 Narrative: Patient Name: ROSA MYERS : 1950 Exam Date/Time: 06/08/2025 13:40 Procedure: XR CHEST 1 VIEW Ordering Provider: FRANCOIS KELLY Reason For Exam: cvc placement EXAMINATION: CHEST RADIOGRAPH (SINGLE VIEW AP OR PA) Clinical History: cvc placement Comparison: Radiograph 06/06/2025 RESULT: See impression Impression: Lines, tubes, and devices:Interval placement a right IJ approach central venous catheter with tip projecting over the SVC. Tracheostomy tube again projects over the trachea. Lungs and pleura:Prominence of the central pulmonary vasculature without overt pulmonary edema. Hazy bibasilar opacities likely small pleural effusions with associated atelectasis. Superimposed infectious/inflammatory process is not entirely excluded. No interval pneumothorax. Cardiomediastinal silhouette: Stable enlarged cardiac silhouette.Atherosclerotic calcifications of the aortic arch Other: Degenerative changes of the spine and acromioclavicular joints. Report Dictated on Electronically Signed By: Timbo Mojica MD Electronically Signed Date/Time: 06/08/2025 2:04 PM EDT US guided thoracentesis [[id number]] Collected: 06/07/25 1409 Order Status: Completed Updated: 06/07/25 1410 Narrative: Patient Name: ROSA MYERS : 1950 Exam Date/Time: 06/07/2025 11:01 Procedure: US GUIDED THORACENTESIS Ordering Provider: WADDELL CANDICE Reason For Exam: pleural effusion PROCEDURE: Ultrasound-guided left thoracentesis PROCEDURAL PERSONNEL Advanced Practice Provider: Yoana Hayes PA-C Attending physician, Omid Gottlieb M.D., was available in the department if needed. Indication: Pleural effusion Additional clinical history: None Complications: No immediate complications. Impression: Successful ultrasound-guided left thoracentesis with drainage of 600 milliliters of dacosta fluid. PROCEDURE SUMMARY: - Limited thoracic ultrasound - Ultrasound-guided thoracentesis - Additional procedure(s): None PROCEDURE DETAILS: Pre-procedure Consent: Informed consent for the procedure including risks, benefits and alternatives was obtained and time-out was performed prior to the procedure. Preparation: The site was prepared and draped using maximal sterile barrier technique including cutaneous antisepsis. Anesthesia/sedation None Limited thoracic ultrasound Limited thoracic ultrasound was performed using a curved transducer. A safe window for thoracentesis was identified. Moderate to large pleural effusion was seen on the side of aspiration. The contralateral side was not investigated. Thoracentesis Local anesthesia was administered. Ultrasound was used to pick a safe access site. A permanent image was stored. The pleural space was accessed and fluid return confirmed position. The fluid was drained. Catheter placed: 5F Yueh Closure The catheter was removed. A sterile bandage was applied. Post-drainage hemithorax findings: Minimal effusion Additional Details Additional description of procedure: None Equipment details: None Specimens removed: Pleural fluid Estimated blood loss (mL): Less than 10 Report Dictated on Electronically Signed By: Yoana Hayes PA-C Electronically Signed Date/Time: 06/07/2025 2:09 PM EDT XR chest 1 view [[id number]] Collected: 06/06/252039 Order Status: Completed Updated: 06/06/252042 Narrative: Patient Name: ROSA MYERS : 1950 Exam Date/Time: 06/06/2025 19:54 Procedure: XR CHEST 1 VIEW Ordering Provider: WADDELL CANDICE Reason For Exam: increased secretions INDICATION: Increased secretions. Tunneled dialysis catheter removal same day. VIEWS: Portable AP upright chest COMPARISON: 06/01/2025 FINDINGS: A tracheostomy overlies the midline. The trachea is midline. The cardiomediastinal silhouette is mildly enlarged. The lung volumes are low. There is mild thickening of the interstitium. Bilateral layering pleural effusions are present. Impression: 1. Interval increase in bilateral layering pleural effusions. 2. Interval increase in interstitial edema and/or infiltrates. Report Dictated on Electronically Signed By: Cindy Joyner MD Electronically Signed Date/Time: 06/06/2025 8:41 PM EDT IR CVC tunneled catheter removal [[id number]] Collected: 06/06/251545 Order Status: Completed Updated: 06/06/251546 Narrative: Patient Name: ROSA MYERS : 1950 Exam Date/Time: 06/06/2025 14:01 Procedure: IR CVC TUNNELED CATHETER REMOVAL Ordering Provider: WADDELL CANDICE Reason For Exam: erythema and redness EXAMINATION: Tunneled dialysis catheter removal. EXAM DATE & TIME: 06/06/2025 2:01 PM EDT INDICATION: erythema and redness ADDITIONAL INFORMATION: 75-year-old female with clinical suspicion for line infection presents for removal COMPARISON: None INFORMED CONSENT: Written informed consent was obtained. The procedure, risks, benefits, and alternatives were discussed. All questions were answered. While not present during the procedure, Dr. Fam was immediately available to furnish services throughout the procedure. TIMEOUT: Timeout was conducted documenting correct patient, procedure, site, fire risk, antibiotics and allergies. COMPLICATIONS: None. ESTIMATED BLOOD LOSS: Less than 10 mL. MEDICATIONS: Antibiotics: None. Contrast dose: None. STERILE TECHNIQUE: All elements of maximal sterile technique were applied: cap, mask, sterile gown, proper hand hygiene including sterile gloves, a large sterile sheet, and hospital-approved cutaneous antisepsis at the site (2% chlorhexidine). ANESTHESIA/SEDATION: Local. PROCEDURE/TECHNIQUE: The patient was placed in the supine position on the procedural table. The skin surrounding the right chest tunneled dialysis catheter was prepped and draped in the usual aseptic fashion. Local anesthesia was achieved with 1% lidocaine solution. Using a combination of blunt dissection and gentle traction, the catheter was removed in its entirety. A sterile dressing was applied. The patient tolerated the procedure well without immediate complication and was transferred from the interventional suite in stable condition. FINDINGS: No images were obtained during catheter removal. Impression: Technically successful uncomplicated removal of right chest tunneled dialysis catheter in its entirety. Report Dictated on Electronically Signed By: Anjum Fam MD Electronically Signed Date/Time: 06/06/2025 3:46 PM EDT XR chest 1 view [[id number]] Collected: 06/01/25 1217 Order Status: Completed Updated: 06/01/25 1220 Narrative: Patient Name: ROSA MYERS : 1950 Exam Date/Time: 06/01/2025 11:50 Procedure: XR CHEST 1 VIEW Ordering Provider: ORONA KEVIN Reason For Exam: ABDOMINAL PAIN; dyspnea CHEST X-RAY AP CLINICAL INDICATION: Dyspnea AP radiograph of the chest was obtained. COMPARISON: None FINDINGS: Right-sided tunneled dialysis catheter line with its tip overlying the expected SVC location. The cardiac silhouette is within normal limits. Findings consistent with pulmonary edema/vascular congestion. Bilateral pleural effusions with associated atelectasis/consolidative changes. Thoracic spine degenerative changes. Impression: Findings consistent with pulmonary edema/vascular congestion. Bilateral pleural effusions with associated atelectasis/consolidative changes. Report Dictated on Electronically Signed By: Peter Melvin MD Electronically Signed Date/Time: 06/01/2025 12:19 PM EDT Antimicrobials, Start/End Dates: Cefep 06/07- Fidaxo 06/03- Impression: Pneumonia due to Pseudomonas aeruginosa, Serratia marcescens, and Proteus spp. CDAD. Infected HD catheter due to Serratia marcescens-s/p removal of cath on 06/06/25. Chronic respiratory failure, ventilator dependence. Pleural effusion, s/p thoracentesis on 06/07/25. Trach and PEG. ESRD, on HD. Plan: Pt presented due to multiple infectious processes, including pneumonia due to Pseudomonas aeruginosa, Serratia marcescens, and Proteus spp. She is trached and vent dependent. She is afebrile, hemodynamically ok. Blood and pleural fluid cxs -neg so far. No leukocytosis. Await sputum cx sensitivity results. Continue cefepime. Continue fidaxomicin for a total of 10 days. High level complexity medical decision making. Will follow. Total time of 50 minutes on this day of encounter spent on, but not limited to review of tests, medical records , complex history , review of external medical records, paper and electronic, counseling and education (patient, family member, caregiver), ordering medications, tests, and procedures, communication with other health care professions, independent interpretation of tests, care coordination, arrangement of outpatient antimicrobial therapy, post-hospitalization therapy and follow-up, and counseling for risks, benefits, and consideration of use of antimicrobials. [facility] Hospitalist Progress note [phone]: Please page me ([phone]) for patient care issues. [phone]: Please page [facility] Hospitalist for any issues. Subjective: Admit Date: 06/01/2025 PCP: No primary care provider on file. Room#: [id number] José Miguel Myers is a 75 y.o. 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 She was admitted to hospital on ICU floor given Vent status but followed by hospital medicine, pulmonology and nephrology during stay. Size Stamper consulted for management of tube feeding = in which she take Nephro Carb steady tube feeds. During admission she required AC/VC ventilation settings and unable to tolerate weaning to PSV due to volume status, deconditioning, anemia and numerous co-morbidities, During admission, she developed C diff requiring insertion of fecal management system due to current Stage III sacral ulcer which was removed due to intolerance. Currently treated with Dificid Her dialysis port appeared red, removed on 06/06 and cultured. She also developed worsening cough with sputum production, repeat imaging showed bilateral effusions. Underwent thoracentesis, was placed on cefepime Interval History: No overnight issues. Noted to have low blood pressures overnight, per nursing she had 2-3 episodes of loose bowel movements Hemoglobin 7.7, sodium of 129 06/09-patient reports feeling better. Per nursing diarrhea is slowing down. Blood pressures improving Hemoglobin initially was noted to be low at 6.9, repeat hemoglobin came up to 7.3 Sodium improving, creatinine improving Diet, tube feeding no tray PEG; Nepro w/CARB Steady; Continuous; Yes; 10; Q 4 Hours; 25; 45 24HR INTAKE/OUTPUT: Intake/Output Summary (Last 24 hours) at 06/09/2025 1337 Last data filed at 06/09/2025 1200 Gross per 24 hour Intake 2305 ml Output 2500 ml Net -195 ml LABS: CBC: Recent Labs 06/07/2533406/08/2511406/09/25 0633 06/09/25 0735 WBC 7.4 6.5 6.7 -- RBC 2.89* 2.96* 2.66* -- HGB 7.5* 7.7* 6.9* 7.3* HCT 24.4* 24.6* 22.0* 22.8* MCV 84.4 83.1 82.7 -- RDW 19.2* 19.2* 19.1* -- PLT 234 236 230 -- BMP: Recent Labs 06/07/2533406/08/2511406/09/25 0541 NA 133* 129* 136 K 3.7 3.8 3.8 CL 96* 95* 99 CO2 26 24 26 BUN 40* 51* 26* CREATININE 3.68* 4.25* 2.37* GLUCOSE 119* 150* 101 CALCIUM 9.4 9.1 9.1 ANIONGAP 11 10 11 LIVER PROFILE: Recent Labs 06/07/2533406/08/25 01106/09/25 0541 AST 19 16 18 ALT 9 9 9 BILITOT 0.6 0.5 0.5 ALKPHOS 123 118 117 PROT 6.8 6.5 6.6 PT/INR: No results for input(s): "PROTIME", "INR" in the last 72 hours. CARDIAC ENZYMES: No results for input(s): "TROPONINI" in the last 72 hours. Procalcitonin: No results found for: "PROCAL" @RISRSLTSPECIALTY@ Objective: Vitals: BP 129/50 Pulse 59 Temp 36.9 C (98.4 F) (Oral) Resp 17 Ht 5' 5" (1.651 m) Wt 230 lb 9.6 oz (105 kg) SpO2 100% BMI 38.37 kg/m Pulse Ox: SpO2 Av.6 % Min: 99 % Max: 100 % Supplemental O2: 06/09/2025 General appearance: No apparent distress, appears stated age, AAOX3 Oral: Tongue is semi-moist Cardiovascular: S1/S2 heard, RRR Respiratory: Clear to auscultation bilaterally, tracheostomy site red and inflamed Abdomen: Soft, non-tender, non-distended bowel sounds positive Musculoskeletal: Bilateral venous stasis changes Skin: Tunneled line removed, dressing in place, no redness or erythema Medications: Continuous Meds[1] Scheduled Meds[2] Assessment Acute on chronic anemia s/p 1 unit of PRBC Chronic bilateral pleural effusions-s/p thoracentesis Pneumonia Chronic respiratory failure tracheostomy dependent Concern for tunneled line infection, removed line on 06/06, line holiday till 06/08 if cultures negative, would need new TDC, if not may need temporary dialysis catheter C. difficile infection on Dificid from 06/03 Hypokalemia Pressure ulcers present on admission Chronic problems ESRD on HD chronic heart failure Severe malnutrition GERD Anxiety Depression Type 2 diabetes with neuropathy Chronic candidiasis Plan Follow-up on cultures from tunneled line catheter, line holiday till 06/08, follow-up on blood cultures negative at 48 hours, wrist 8 temporary dialysis catheter on 06/08 ID following Sputum cultures growing few gram-positive bacilli, rare gram-positive cocci. Continue cefepime Continue Dificid Blood pressure improving this morning, hold Coreg, continue midodrine Follow-up on pleural fluid studies Pulmonary following Nephrology following -am labs, replace lytes prn -increase activity Diet Diet, tube feeding no tray PEG; Nepro w/CARB Steady; Continuous; Yes; 10; Q 4 Hours; 25; 45 DVT Prophylaxis [] Lovenox, [x] Heparin, [] SCDs, [] Ambulation [] Already on Anticoagulation GI Prophylaxis [] PPI, [] H2 Herb, [] Carafate, [] Diet/Tube Feeds Code Status Full Code MDM [] Low, [] Moderate,[x] High Patient's risk as above Anticipated Discharge - Date - - Location - Skilled Facility - Pending the following -clinical improvement, budget consultant recommendations Total time spent (which include face to face and non face to face encounters) : 50 minutes Toxic drug monitoring/narrow therapeutic index drug monitoring : # Drug name : # Route administered : # Method of monitoring : No emergency contact information on file. Advance Directive: Full Code Discharge planning: ALLA Etienne MD Division of Hospitalist Medicine Inpatient Medical Services/[facility] [1] [2] atorvastatin, 40 mg, Per G Tube, Daily busPIRone, 5 mg, Per G Tube, TID [Held by provider] carvedilol, 3.125 mg, Per G Tube, BID WC cefepime, 1,000 mg, IntraVENous, q12h chlorhexidine, , Topical, Daily fidaxomicin, 200 mg, Per G Tube, BID FLUoxetine, 20 mg, Per G Tube, Daily furosemide, 20 mg, Per G Tube, Daily heparin, 5,000 Units, SubCUTAneous, 2 times per day insulin glargine, 25 Units, SubCUTAneous, BID insulin lispro, 0-6 Units, SubCUTAneous, q6h ipratropium-albuterol, 3 mL, Nebulization, q4h miconazole, , Topical, BID midodrine, 10 mg, Per G Tube, TID pantoprazole (ProtoNix) 40 mg in sodium chloride (PF) 0.9 % 10 mL injection, 40 mg, IntraVENous, Nightly sodium chloride, 3 mL, Nebulization, BID stomahesive in petrolatum, , Topical, 3 times per day [facility] Respiratory Care Department Progress Note Spontaneous Awakening Trial Wean Screen SpO2>/=88%: Yes (06/09/25330) FiO2</=50%: Yes (06/09/25330) PEEP </=8cmH2O: Yes (06/09/25330) HR <140 BPM: Yes (06/09/25330) RR </= 35 breaths/min: Yes (06/09/25330) MAP >/= 65mmHg: Yes (06/09/25330) Arterial pH >7.30: Yes (06/09/25330) Safety Screen Spontaneous Breathing Trial (SBT - RT) : SBT Held - Chronic Ventilator Dependent (06/09/25330) Spontaneous Breathing Trial Vent Settings Vent Mode: Assist control (06/09/25738) Mandatory Type: VC+ (06/09/25738) Resp Rate (Set): 14 (06/09/25714) Vt (Set, mL): 450 mL (06/09/25714) FiO2 (%): 30 % (06/09/25738) PEEP/CPAP (cm H2O): 5 cm H20 (06/09/25714) Inspiratory Time (sec): 0.9 sec (06/09/25714) Vitals MAP (mmHg): 72 (06/09/25738) Heart Rate: 67 (06/09/25738) Resp: 18 (06/09/25714) SpO2: 99 % (06/09/25738) Suctioning/Secretions Secretion Amount: Moderate (06/09/25738) Secretion Color: White (06/09/25738) Secretion Consistency: Thick (06/09/25738) ABG results No results for input(s): "PHART", "ZQN0QQJ", "PO2ART", "FEA5OXX", "SO2ART", "Z4GXSCFD" in the last 72 hours. Does this patient meet criteria for termination of mechanical ventilation No - Chronic Vent Dependent Name of physician notified via secure chat or in person : N/A (NA if patient did not meet criteria) Comments: Thank you for involving Respiratory in the care of this patient, Images from the original note were not included. [facility] [address] [place] [id number] Patient - Rosa Myers, Age - 75 y.o. - 1950 Room Number - 222-04/222-04 A Consulting - Raine Etienne MD Primary Care Physician - No primary care provider on file. Date of Admission - 06/01/2025 10:53 AM Hospital Day - 7 Problem List[1] Chief Complaint: Jose Maria Myers is a 75 y.o. female who pulmonary is following for VDRF Subjective/Interval History: Patient awake resting in bed. She denied any chest pain or shortness of breath this morning. Remains stable on vent AC/VC. RN reports some increased secretions and suctioning. A pertinent review of systems was performed and was otherwise non-contributory except as detailed in Subjective section above. Objective: Vitals: BP 119/54 Pulse 60 Temp 36.9 C (98.4 F) (Oral) Resp 20 Ht 5' 5" (1.651 m) Wt 221 lb 12.5 oz (101 kg) SpO2 99% BMI 36.91 kg/m Pulse Ox: SpO2 Av.7 % Min: 99 % Max: 100 % Supplemental O2: 30% FiO2 on Vent. I/O 24HR INTAKE/OUTPUT: Intake/Output Summary (Last 24 hours) at 06/08/2025 1252 Last data filed at 06/08/2025 0751 Gross per 24 hour Intake 3929.67 ml Output 0 ml Net 3929.67 ml Physical Exam:unchanged compared to 06/07 Physical Exam Vitals and nursing note reviewed. Constitutional: General: She is not in acute distress. Comments: Chronically ill appearing Neck: Trachea: Tracheostomy present. Cardiovascular: Rate and Rhythm: Normal rate and regular rhythm. Pulmonary: Effort: Pulmonary effort is normal. No respiratory distress. Breath sounds: Rales present. No wheezing or rhonchi. Comments: On Vent AC/VC Musculoskeletal: Right lower leg: No edema. Left lower leg: No edema. Psychiatric: Mood and Affect: Mood normal. Behavior: Behavior normal. Behavior is cooperative. Medications: Allergies[2] Current Medications[3] PRN Meds[4] Labs: CBC: Recent Labs 06/06/2551306/07/2533406/08/25114 WBC 5.9 7.4 6.5 HGB 7.2* 7.5* 7.7* HCT 24.5* 24.4* 24.6* PLT 197 234 236 MCV 86.3 84.4 83.1 RDW 19.4* 19.2* 19.2* BMP: Recent Labs 06/06/2551306/07/2533406/08/25114 NA 134* 133* 129* K 3.7 3.7 3.8 CL 98 96* 95* CO2 26 26 24 BUN 30* 40* 51* CREATININE 2.79* 3.68* 4.25* CALCIUM 9.0 9.4 9.1 LFTs: Recent Labs 06/06/2551306/07/2533406/08/25 0115 AST 21 19 16 ALT 12 9 9 PROT 6.5 6.8 6.5 ALBUMIN 2.6* 2.7* 2.5* BILITOT 0.5 0.6 0.5 ALKPHOS 113 123 118 Glucose: Recent Labs 06/06/25 0514 06/06/25 0518 06/06/25 1720 06/06/25 2105 06/06/25 2342 06/07/25 0335 06/07/25 0543 06/07/25 1227 06/07/25 1743 06/08/25 0037 06/08/25 0115 06/08/25 0532 GLUCOSE 145* -- -- -- -- 119* -- -- -- -- 150* -- POCGLU -- < > 110* 138* 129* -- 137* 134* 140* 156* -- 166* < > = values in this interval not displayed. Microbiology: + C difficile Sputum culture: polymicorbial Imaging/ Testing: CXR 06/06/25: BL pleural effusions and ? Infiltrates, interpreted by me Assessment and Plan/Recommendations: Chronic respiratory failure with hypoxia. Ventilator dependence Tracheostomy dependence Hx bilateral pleural effusions, transudate Possible PNA- polymicorbial respiratory tract infections. ESRD with pulmonary edema Anemia + C Diff CXR with bilateral effusion and interstitial edema/infiltrates. Most consistent withfluid overload states and borderline xudate. Unable to complete HD yesterday due to possible infected line. Tunneled line removed 06/06 and sent for culture. Needs temporary line placed for HD/ volume management. Nephrology following Continue DuoNeb's and hypertonic saline aerosol ID consulted for antibiotic management. Respiratory status stable on vent. Continue AC/VC. No plans for weaning Routine trach care & pulmonary hygiene Advance Directive: Full Code Discharge planning: Anticipate discharge back to [facility] once medically stable Will not be seen over weekend unless acute changes. Case discussed with nurse and patient Questions and concerns addressed. [1] Patient Active Problem List Diagnosis Anemia Anemia, unspecified type Moderate malnutrition (CMS/HCC) (HCC) [2] No Known Allergies [3] Current Facility-Administered Medications: acetaminophen (Tylenol) tablet 650 mg, 650 mg, Oral, q6h PRN OR acetaminophen (Tylenol) suppository 650 mg, 650 mg, Rectal, q6h PRN, Sharyn Amaya MD albumin human 5 % IV solution 25 g, 25 g, IntraVENous, TID PRN, Rad Acosta MD albuterol (2.5 MG/3ML) 0.083% nebulizer solution 2.5 mg, 2.5 mg, Nebulization, q6h PRN, Neelima Hanks APRN - [employer]ALL[employer]IST HELPER atorvastatin (Lipitor) tablet 40 mg, 40 mg, Per G Tube, Daily, Grzegorz Chatterjee MD, 40 mg at 06/08/25911 busPIRone (Buspar) tablet 5 mg, 5 mg, Per G Tube, TID, Grzegorz Chatterjee MD, 5 mg at 06/08/25911 [Held by provider] carvedilol (Coreg) tablet 3.125 mg, 3.125 mg, Per G Tube, BID WC, Grzegorz Chatterjee MD, 3.125 mg at 06/07/25 1636 cefepime (Maxipime) 1,000 mg in sodium chloride 0.9 % 50 mL IVPB, 1,000 mg, IntraVENous, q12h, Geno Waddell MD, Stopped at 06/08/25 0647 dextrose 5 % and sodium chloride 0.45 % bolus 500 mL, 500 mL, IntraVENous, TID PRN, Rad Acosta MD dextrose 5 % infusion, 100 mL/hr, IntraVENous, PRN, Sharyn Amaya MD, Stopped at 06/02/25 1757 dextrose 50 % solution 12.5 g, 12.5 g, IntraVENous, PRN, Sharyn Amaya MD fidaxomicin (Dificid) tablet 200 mg, 200 mg, Per G Tube, BID, Grzegorz Chatterjee MD, 200 mg at 06/08/25911 FLUoxetine (PROzac) capsule 20 mg, 20 mg, Per G Tube, Daily, Grzegorz Chatterjee MD, 20 mg at 06/08/25911 furosemide (Lasix) tablet 20 mg, 20 mg, Per G Tube, Daily, Grzegorz Chatterjee MD, 20 mg at 06/08/25911 glucagon (human recombinant) injection 1 mg, 1 mg, IntraMUSCular, PRN, Sharyn Amaya MD glucose oral gel 15 g, 15 g, Oral, PRN, Sharyn Amaya MD heparin injection 1,200-2,000 Units, 1,200-2,000 Units, IntraCATHeter, PRN, RENITA Clifford CNP, 1,600 Units at 06/04/251922 heparin injection 1,200-2,000 Units, 1,200-2,000 Units, IntraCATHeter, PRN, RENITA Clifford CNP, 1,600 Units at 06/04/25 192 heparin injection 5,000 Units, 5,000 Units, SubCUTAneous, 2 times per day, Sharyn Amaya MD, 5,000 Units at 06/08/25911 insulin glargine (Lantus) injection 25 Units, 25 Units, SubCUTAneous, BID, Sharyn Amaya MD, 25 Units at 06/08/25911 Insulin Lispro (Humalog) injection 0-6 Units, 0-6 Units, SubCUTAneous, q6h, Grzegorz Chatterjee MD, 1 Units at 06/08/25 0536 ipratropium-albuterol (Duo-Neb) 0.5-2.5 mg/3 mL nebulizer solution 3 mL, 3 mL, Nebulization, q4h, Neelima Hanks APRN - RENEE, 3 mL at 06/08/25 0835 miconazole (Micotin) 2 % powder, , Topical, BID, RENITA Gtz CNP, Given at 06/08/25 09 midodrine (Proamatine) tablet 10 mg, 10 mg, Per G Tube, TID, Grzegorz Chatterjee MD, 10 mg at 06/08/25911 morphine injection 1 mg, 1 mg, IntraVENous, q4h PRN, Geno Waddell MD, 1 mg at 06/07/25 141 pantoprazole (ProtoNix) 40 mg in sodium chloride (PF) 0.9 % 10 mL injection, 40 mg, IntraVENous, Nightly, Grzegorz Chatterjee MD, 40 mg at 06/07/252027 polyethylene glycol (PEG) 3350 (Miralax) packet 17 g, 17 g, Oral, Daily PRN, Sharyn Amaya MD promethazine (Phenergan) tablet 12.5 mg, 12.5 mg, Oral, q6h PRN OR promethazine (Phenergan) injection 12.5 mg, 12.5 mg, IntraMUSCular, q6h PRN OR promethazine (Phenergan) suppository 12.5 mg, 12.5 mg, Rectal, q6h PRN, Sharyn Amaya MD sodium chloride 0.9 % infusion, 250 mL/hr, IntraVENous, PRN, Omid Orona MD sodium chloride 0.9 % infusion, 250 mL/hr, IntraVENous, PRN, Geno Waddell MD sodium chloride 3 % hypertonic nebulizer solution 3 mL, 3 mL, Nebulization, BID, Neelima Hanks APRN - METALLURGIST HELPER, 3 mL at 06/08/25 0834 stomahesive in petrolatum (ET Mix), , Topical, PRN, RENITA Gtz CNP, Given at 06/08/25 0936 stomahesive in petrolatum (ET Mix), , Topical, 3 times per day, RENITA Gtz CNP, Given at 06/08/25 0536 [4] PRN medications: acetaminophen OR acetaminophen, albumin human, albuterol, dextrose 5 % and sodium chloride 0.45 %, dextrose, dextrose, glucagon (rDNA), glucose, heparin, heparin, morphine sulfate, polyethylene glycol (PEG) 3350, promethazine OR promethazine OR promethazine, sodium chloride, sodium chloride, stomahesive in petrolatum [facility] Nephrology Progress Note Subjective/ 75 y.o. year old female who we are seeing in consultation for ESRD and management of HD. Follows with Dr. Loredo and an outpatient HD schedule M-F at [facility]. 06/04: last iHD tx, 1.6 L removed 06/06: TDC removed for suspicion of infection Laying bed, alert Nods head and attempts to mouth words Chronic trach to vent and PEG Still having diarrhea, but not as much BP stable, on the low side Denies pain No LE edema No change in PFSH All data labs/interval notes and overnight issues are reviewed Objective/ Vitals: 06/08/25 0400 06/08/25 0729 06/08/25 0841 06/08/25 0900 BP: (!) 105/37 (!) 120/43 BP Location: Left arm Patient Position: Lying Pulse: 63 66 66 Resp: 15 15 Temp: 36.9 C (98.4 F) TempSrc: Oral SpO2: 100% 99% 99% Weight: Height: 24HR INTAKE/OUTPUT: Intake/Output Summary (Last 24 hours) at 06/08/2025 1237 Last data filed at 06/08/2025 0751 Gross per 24 hour Intake 3929.67 ml Output 0 ml Net 3929.67 ml Wt Readings from Last 3 Encounters: 06/05/25 101 kg (221 lb 12.5 oz) Constitutional: Alert, awake, obese HEENT: no pallor/cyanosis or icterus Cardiovascular: S1, S2 without m/r/g Respiratory: CTA, B/l equal air entry trach present Abdomen: +bs, soft, Non tender non distended Ext: No LE edema No CVA tenderness Neurologic Alert and oriented; answers questions Psychiatric Calm and cooperative normal modd and affect Neck: supple, no thyroid enlargement, no JVD elevation Skin: warm, moist, no rashes TDC R chest Medications: Scheduled Meds[1] Continuous Infusions:Continuous Meds[2] PRN Meds:PRN Meds[3] Data/ Recent Labs 06/06/2551306/07/2533406/08/25 0115 WBC 5.9 7.4 6.5 HGB 7.2* 7.5* 7.7* HCT 24.5* 24.4* 24.6* MCV 86.3 84.4 83.1 PLT 197 234 236 Recent Labs 06/06/2551306/07/25 0335 06/08/25 0115 NA 134* 133* 129* K 3.7 3.7 3.8 CL 98 96* 95* CO2 26 26 24 GLUCOSE 145* 119* 150* BUN 30* 40* 51* CREATININE 2.79* 3.68* 4.25* Albumin: No components found for: "LABALBU" Calcium: Lab Results Component Value Date CALCIUM 9.1 06/08/2025 Ionized Calcium: No components found for: "IONCA" Magnesium: No results found for: "MG" Phosphorus: No results found for: "PHOS" Assessment/ 75 y.o. female with ESRD N18.6 C. Difficile A04.72 Anemia D63.1 Volume overload E87.70 Hyponatremia E87.1 Chronic respiratory failure J96.10 Diabetes E11.22 Dependence on hemodialysis RECOMMENDATIONS: - HD schedule M-F at [facility], follows with Dr. Loredo. S/p iHD 06/04 for 1.6L UF. Temp line ordered today, will be placed by Dr. Georges in ICU, dialysis to follow -Tunneled HD catheter removed on Wednesday for suspicion of infection. Catheter and Blood cultures pending. ID following for management of antibiotics - Okay for Midodrine 10 mg 1 hour prior to iHD for BP support during fluid removal. - Electrolytes stable during line holiday, will improve with dialysis today continue to monitor trends - Anemia -Transfuse to keep Hgb > 7.0 ESRD hgb goal > 10. Will continue anemia algorithm OP with dialysis. IV Fe supplementation and DORIS management with OP tx. - Avoid nephrotoxins and IV contrast dye - Dose all meds per GFR < 15 - We will follow closely - D/w Dr. Georges, patient's RN, IR, and dialysis [1] atorvastatin, 40 mg, Per G Tube, Daily busPIRone, 5 mg, Per G Tube, TID [Held by provider] carvedilol, 3.125 mg, Per G Tube, BID WC cefepime, 1,000 mg, IntraVENous, q12h fidaxomicin, 200 mg, Per G Tube, BID FLUoxetine, 20 mg, Per G Tube, Daily furosemide, 20 mg, Per G Tube, Daily heparin, 5,000 Units, SubCUTAneous, 2 times per day insulin glargine, 25 Units, SubCUTAneous, BID insulin lispro, 0-6 Units, SubCUTAneous, q6h ipratropium-albuterol, 3 mL, Nebulization, q4h miconazole, , Topical, BID midodrine, 10 mg, Per G Tube, TID pantoprazole (ProtoNix) 40 mg in sodium chloride (PF) 0.9 % 10 mL injection, 40 mg, IntraVENous, Nightly sodium chloride, 3 mL, Nebulization, BID stomahesive in petrolatum, , Topical, 3 times per day [2] [3] PRN medications: acetaminophen OR acetaminophen, albumin human, albuterol, dextrose 5 % and sodium chloride 0.45 %, dextrose, dextrose, glucagon (rDNA), glucose, heparin, heparin, morphine sulfate, polyethylene glycol (PEG) 3350, promethazine OR promethazine OR promethazine, sodium chloride, sodium chloride, stomahesive in petrolatum Cosigned by Coleman Toney MD at 06/08/2025 6:11 PM EDT [facility] Hospitalist Progress note [phone]: Please page wa [phone]) for patient care issues. [phone]: Please page [facility] Hospitalist for any issues. Subjective: Admit Date: 06/01/2025 PCP: No primary care provider on file. Room#: [id number] José Miguel Myers is a 75 y.o. 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 She was admitted to hospital on ICU floor given Vent status but followed by hospital medicine, pulmonology and nephrology during stay. Size Stamper consulted for management of tube feeding = in which she take Nephro Carb steady tube feeds. During admission she required AC/VC ventilation settings and unable to tolerate weaning to PSV due to volume status, deconditioning, anemia and numerous co-morbidities, During admission, she developed C diff requiring insertion of fecal management system due to current Stage III sacral ulcer which was removed due to intolerance. Currently treated with Dificid Her dialysis port appeared red, removed on 06/06 and cultured. She also developed worsening cough with sputum production, repeat imaging showed bilateral effusions. Underwent thoracentesis, was placed on cefepime Interval History: No overnight issues. Noted to have low blood pressures overnight, per nursing she had 2-3 episodes of loose bowel movements Hemoglobin 7.7, sodium of 129 Diet, tube feeding no tray PEG; Nepro w/CARB Steady; Continuous; Yes; 10; Q 4 Hours; 25; 45 24HR INTAKE/OUTPUT: Intake/Output Summary (Last 24 hours) at 06/08/2025 1058 Last data filed at 06/08/2025 0751 Gross per 24 hour Intake 3929.67 ml Output 0 ml Net 3929.67 ml LABS: CBC: Recent Labs 06/06/2551306/07/2533406/08/25114 WBC 5.9 7.4 6.5 RBC 2.84* 2.89* 2.96* HGB 7.2* 7.5* 7.7* HCT 24.5* 24.4* 24.6* MCV 86.3 84.4 83.1 RDW 19.4* 19.2* 19.2* PLT 197 234 236 BMP: Recent Labs 06/06/2551306/07/2533406/08/25114 NA 134* 133* 129* K 3.7 3.7 3.8 CL 98 96* 95* CO2 26 26 24 BUN 30* 40* 51* CREATININE 2.79* 3.68* 4.25* GLUCOSE 145* 119* 150* CALCIUM 9.0 9.4 9.1 ANIONGAP 10 11 10 LIVER PROFILE: Recent Labs 06/06/2551306/07/2533406/08/25 011 AST 21 19 16 ALT 12 9 9 BILITOT 0.5 0.6 0.5 ALKPHOS 113 123 118 PROT 6.5 6.8 6.5 PT/INR: No results for input(s): "PROTIME", "INR" in the last 72 hours. CARDIAC ENZYMES: No results for input(s): "TROPONINI" in the last 72 hours. Procalcitonin: No results found for: "PROCAL" @RISRSLTSPECIALTY@ Objective: Vitals: BP (!) 120/43 (BP Location: Left arm, Patient Position: Lying) Pulse 66 Temp 36.9 C (98.4 F) (Oral) Resp 15 Ht 5' 5" (1.651 m) Wt 221 lb 12.5 oz (101 kg) SpO2 99% BMI 36.91 kg/m Pulse Ox: SpO2 Av.8 % Min: 99 % Max: 100 % Supplemental O2: 06/08/2025 General appearance: No apparent distress, appears stated age, AAOX3 Oral: Tongue is semi-moist Cardiovascular: S1/S2 heard, RRR Respiratory: Clear to auscultation bilaterally, tracheostomy site dry and intact Abdomen: Soft, non-tender, non-distended bowel sounds positive Musculoskeletal: Bilateral venous stasis changes Skin: Tunneled line removed, dressing in place, no redness or erythema Medications: Continuous Meds[1] Scheduled Meds[2] Assessment Acute on chronic anemia s/p 1 unit of PRBC Chronic bilateral pleural effusions-s/p thoracentesis Pneumonia Chronic respiratory failure tracheostomy dependent Concern for tunneled line infection, removed line on 06/06, line holiday till 06/08 if cultures negative, would need new TDC, if not may need temporary dialysis catheter C. difficile infection on Dificid from 06/03 Hypokalemia Pressure ulcers present on admission Chronic problems ESRD on HD chronic heart failure Severe malnutrition GERD Anxiety Depression Type 2 diabetes with neuropathy Chronic candidiasis Plan Follow-up on cultures from tunneled line catheter, line holiday till 06/08, follow-up on blood cultures negative at 24 hours, would need temporary dialysis catheter meanwhile-planned for today ID following Sputum cultures growing few gram-positive bacilli, rare gram-positive cocci. Continue cefepime Continue Dificid Blood pressure is running low this morning, hold Coreg, continue midodrine Follow-up on pleural fluid studies Pulmonary following Nephrology following -am labs, replace lytes prn -increase activity Diet Diet, tube feeding no tray PEG; Nepro w/CARB Steady; Continuous; Yes; 10; Q 4 Hours; 25; 45 DVT Prophylaxis [] Lovenox, [x] Heparin, [] SCDs, [] Ambulation [] Already on Anticoagulation GI Prophylaxis [] PPI, [] H2 Herb, [] Carafate, [] Diet/Tube Feeds Code Status Full Code MDM [] Low, [] Moderate,[x] High Patient's risk as above Anticipated Discharge - Date - - Location - Skilled Facility - Pending the following -clinical improvement, budget consultant recommendations Total time spent (which include face to face and non face to face encounters) : 60 minutes Toxic drug monitoring/narrow therapeutic index drug monitoring : # Drug name : # Route administered : # Method of monitoring : No emergency contact information on file. Advance Directive: Full Code Discharge planning: TBD Raine Etienne MD Division of Hospitalist Medicine Inpatient Medical Services/[facility] [1] [2] atorvastatin, 40 mg, Per G Tube, Daily busPIRone, 5 mg, Per G Tube, TID [Held by provider] carvedilol, 3.125 mg, Per G Tube, BID WC cefepime, 1,000 mg, IntraVENous, q12h fidaxomicin, 200 mg, Per G Tube, BID FLUoxetine, 20 mg, Per G Tube, Daily furosemide, 20 mg, Per G Tube, Daily heparin, 5,000 Units, SubCUTAneous, 2 times per day insulin glargine, 25 Units, SubCUTAneous, BID insulin lispro, 0-6 Units, SubCUTAneous, q6h ipratropium-albuterol, 3 mL, Nebulization, q4h miconazole, , Topical, BID midodrine, 10 mg, Per G Tube, TID pantoprazole (ProtoNix) 40 mg in sodium chloride (PF) 0.9 % 10 mL injection, 40 mg, IntraVENous, Nightly sodium chloride, 3 mL, Nebulization, BID stomahesive in petrolatum, , Topical, 3 times per day [facility] Nephrology Progress Note Subjective/ 75 y.o. year old female who we are seeing in consultation for ESRD and management of HD. Follows with Dr. Loredo and an outpatient HD schedule M- at [facility]. S/p iHD 06/04 for 1.6 L removal TDC removed yesterday Sleeping, easily arousable, nods head On trach and PEG. No blood in stool or black stool reported. Diarrhea slightly improved - per bedside RN BP stable Denies pain No LE edema No change in PFSH All data labs/interval notes and overnight issues are reviewed Objective/ Vitals: 06/07/25 0902 06/07/25 1124 06/07/25 1125 06/07/25 1130 BP: 119/61 119/61 BP Location: Patient Position: Pulse: 62 61 61 61 Resp: 20 Temp: TempSrc: SpO2: 100% 100% 100% 100% Weight: Height: 24HR INTAKE/OUTPUT: Intake/Output Summary (Last 24 hours) at 06/07/2025 1232 Last data filed at 06/07/2025 0620 Gross per 24 hour Intake 1414 ml Output 0 ml Net 1414 ml Wt Readings from Last 3 Encounters: 06/05/25 101 kg (221 lb 12.5 oz) Constitutional: Alert, awake, obese HEENT: no pallor/cyanosis or icterus Cardiovascular: S1, S2 without m/r/g Respiratory: CTA, B/l equal air entry trach present Abdomen: +bs, soft, Non tender non distended Ext: No LE edema No CVA tenderness Neurologic Alert and oriented; answers questions Psychiatric Calm and cooperative normal modd and affect Neck: supple, no thyroid enlargement, no JVD elevation Skin: warm, moist, no rashes TDC R chest Medications: Scheduled Meds[1] Continuous Infusions:Continuous Meds[2] PRN Meds:PRN Meds[3] Data/ Recent Labs 06/05/2530506/06/2551306/07/25 0335 WBC 5.7 5.9 7.4 HGB 7.6* 7.2* 7.5* HCT 24.8* 24.5* 24.4* MCV 84.6 86.3 84.4 PLT 234 197 234 Recent Labs 06/05/2530506/06/2551306/07/25 0335 NA 137 134* 133* K 3.9 3.7 3.7 CL 100 98 96* CO2 27 26 26 GLUCOSE 67* 145* 119* BUN 18 30* 40* CREATININE 1.79* 2.79* 3.68* Albumin: No components found for: "LABALBU" Calcium: Lab Results Component Value Date CALCIUM 9.4 06/07/2025 Ionized Calcium: No components found for: "IONCA" Magnesium: No results found for: "MG" Phosphorus: No results found for: "PHOS" Assessment/ 75 y.o. female with ESRD N18.6 C. Difficile A04.72 Anemia D63.1 Volume overload E87.70 Hyponatremia E87.1 Chronic respiratory failure J96.10 Diabetes E11.22 Dependence on hemodialysis RECOMMENDATIONS: - HD schedule M- at [facility], follows with Dr. Loredo. S/p iHD 06/04 for 1.6L UF. -HD catheter taken out yesterday due to infection. Blood cultures drawn today, antibiotics per primary. Temp vs tunneled HD line to be placed tomorrow and dialysis to follow - Okay for Midodrine 10 mg 1 hour prior to iHD for BP support during fluid removal. - Electrolytes stable during line holiday, will improve with dialysis tomorrow, continue to monitor trends - Anemia -Transfuse to keep Hgb > 7.0 ESRD hgb goal > 10. Will continue anemia algorithm OP with dialysis. IV Fe supplementation and DORIS management with OP tx. - Avoid nephrotoxins and IV contrast dye - Dose all meds per GFR < 15 - We will follow closely - D/w Dr. Waddell. D/w RN. [1] atorvastatin, 40 mg, Per G Tube, Daily busPIRone, 5 mg, Per G Tube, TID carvedilol, 3.125 mg, Per G Tube, BID WC cefepime, 1,000 mg, IntraVENous, q12h fidaxomicin, 200 mg, Per G Tube, BID FLUoxetine, 20 mg, Per G Tube, Daily furosemide, 20 mg, Per G Tube, Daily heparin, 5,000 Units, SubCUTAneous, 2 times per day insulin glargine, 25 Units, SubCUTAneous, BID insulin lispro, 0-6 Units, SubCUTAneous, q6h ipratropium-albuterol, 3 mL, Nebulization, q4h miconazole, , Topical, BID midodrine, 10 mg, Per G Tube, TID pantoprazole (ProtoNix) 40 mg in sodium chloride (PF) 0.9 % 10 mL injection, 40 mg, IntraVENous, Nightly sodium chloride, 3 mL, Nebulization, BID stomahesive in petrolatum, , Topical, 3 times per day [2] [3] PRN medications: acetaminophen OR acetaminophen, albumin human, albuterol, dextrose 5 % and sodium chloride 0.45 %, dextrose, dextrose, glucagon (rDNA), glucose, heparin, heparin, morphine sulfate, polyethylene glycol (PEG) 3350, promethazine OR promethazine OR promethazine, sodium chloride, sodium chloride, stomahesive in petrolatum Cosigned by Coleman Toney MD at 06/07/2025 12:58 PM EDT Associated attestation - Coleman Toney MD - 06/07/2025 12:58 PM EDT I have reviewed the above assessment and plan with the FULL STACK DEVELOPER. I agree with above note. HD catheter discontinued yesterday because of concern for tunnel infection. Blood cultures pending. Potential plan for Temp HD catheter tomorrow followed by dialysis. Needs eventual conversion to tunneled HD catheter prior to discharge. D/w IR. D/w primary . Nutrition Assessment Type and Reason for Visit: Reassess Nutrition Recommendations/Plan: Noted EN to goal, suspect Diarrhea r/t Cdiff over enteral nutrition tolerance issues Nepro CarbSteady @ 45 mL/hr to provide: 1912 kcal, 87 g protein, 785 mL free water --> 33.5 kcal and 1.52 g protien/kg IBW Please obtain weekly candelaria weights for most accurate anthropometric data and calculation of macronutrient and fluid needs RDN to continue to monitor weekly: fluid accumulation, weight, skin integrity, trends in lab values, tolerance of EN, improvement in diarrhea and clinical status, discharge planning. Malnutrition Assessment: Malnutrition Status: Moderate malnutrition Context: Chronic Illness Findings of the 6 clinical characteristics of malnutrition: Energy Intake: No significant decrease in energy intake (EN meeting patinet needs at [facility] and) Weight Loss: Mild weight loss (specify amount and time period) (-6.6% weight loss over six months per EMR) Body Fat Loss: Mild body fat loss Buccal region, Orbital Muscle Mass Loss: Mild muscle mass loss Clavicles (pectoralis & deltoids), Temples (temporalis), Thigh (quadraceps) Fluid Accumulation: Severe Extremities Boom Supervisor Strength: Normal photo mask cleaner strength Nutrition Assessment: 75 year old woman who remains admitted to [facility] with anemia from SNF. +1 u pRBC and imaging on arrival showing pulmonary edema and vascular congestion with bilateral pleural effusions. She remains admitted to ICU for vent management, being followed by IMS. Nephrology consulted and supporting for ESRD and management of HD. Last HD session on 06/04 with -1600 mL removed and well tolerated. +CDiff and FMS placed on 06/05 to divert excessive stooling secondary to CDiff, and stage III PU to backside. Removed tunneled HD catheter for infectious concern on 06/06. In terms of nutrition, her EN remains to goal since evening of 05/30. Appears to be tolerating EN well overall, suspect stooling r/t to CDiff infection over enteral nutrition formula- would recommend to remain on Nepro CarbSteady. Sitting up in bed at time of assessment. Denies nausea or GI distress. Requsting to be suctioned, RN made aware Estimated Daily Nutrient Needs: Energy Requirements Based On: Kcal/kg Weight Used for Energy Requirements: [place] Weight for Energy Calculation (kg): 57 kg Total Energy Requirements (kcals/day): 4819-6973 (25-30 kcal/kg IBW) Weight Used for Protein Requirements: [place] Weight in Kg Used for Protein Requirements: 57 kg Estimated Total Protein (g/day): 68-97 (1.2-1.7 g protein/kg IBW) Estimated Daily Total Fluid (ml/day): per MD Nutrition Related Findings: A+OX4. nods and gestures appropriately. +Trach to vent. +Trace BUE edema. Tyler score=12 (Stage III PU and MASD to right thigh. Stage II PU to forehead, nose, and left heel. +fungal abdominal skin folds). +Dificid. +FMS placed on 06/05. EN remains to goal Wound Type: Multiple, Stage III, Stage II, Moisture Associate Skin Damage (Stage III PU and MASD to right thigh. Stage II PU to forehead, nose, and left heel. +fungal abdominal skin folds.) Current Nutrition Therapies: Diet, tube feeding no tray PEG; Nepro w/CARB Steady; Continuous; Yes; 10; Q 4 Hours; 25; 45 Current Oral Intake Average Meal Intake: NPO Average Supplements Intake: NPO Enteral Nutrition Feeding Route: PEG EN Formula: Nepro w/CARBSTEADY EN Schedule: Continuous EN Feeding Regimen: Nepro CarbSteady @ 45 mL/hr Additives/Modulars: None Water Flushes: 100 mL Q4H Current EN & Flush Order Provides: Nepro CarbSteady @ 45 mL/hr provides: 1912 kcal, 87 g protein, 785 mL free water --> 33.5 kcal and 1.52 g protien/kg IBW Goal EN & Flush Order Provides: Nepro CarbSteady @ 45 mL/hr to provide: 1912 kcal, 87 g protein, 785 mL free water --> 33.5 kcal and 1.52 g protien/kg IBW Anthropometric Measures: Height: 165.1 cm (5' 5") Current Body Weight: 101 kg (221 lb 12.5 oz) Weight Source: Bed Scale Admission Body Weight: 103 kg (226 lb) (noted 05/25 at SNF) Usual Body Weight: 110 kg (242 lb) (per EMR--> 242# 11/27/24; 220# (bed) 03/07/25; 209.7# 04/02/25; 226# 05/25/25) % Weight Change (Calculated): -8.4 [place] Body Weight (lbs) (Calculated): 125 lbs [place] Body Weight (Kg) (Calculated): 57 kg % [place] Body Weight (Calculated): 177.4 % BMI (kg/m2) (Calculated): 36.9 Weight Adjustment For: No Adjustment BMI Categories: Obese Class 2 (BMI 35.0 -39.9) Nutrition Diagnosis: Moderate malnutrition, In context of chronic illness related to increase demand for energy/nutrients as evidenced by mild loss of subcutaneous fat, mild muscle loss Altered GI function related to altered GI structure as evidenced by nutrition support - enteral nutrition Nutrition Interventions: Nutrition Education/Counseling: Education not indicated Coordination of Nutrition Care: Continue to monitor while inpatient Plan of Care discussed with: RN and patient Goals: Previous Goal Met: Progressing toward Goal(s) Goals: Tolerate nutrition support at goal rate Nutrition Monitoring and Evaluation: Behavioral-Environmental Outcomes: None Identified Food/Nutrient Intake Outcomes: Enteral Nutrition Intake/Tolerance Physical Signs/Symptoms Outcomes: Biochemical Data, GI Status, Diarrhea, Skin, Weight, Nausea or Vomiting, Hemodynamic Status, Fluid Status or Edema, Nutrition Focused Physical Findings Discharge Planning: Enteral Nutrition Raquel Brady RDN, LDN, Contact: *[phone] Images from the original note were not included. [facility] [place] [address] [place], [place] [id number] Patient - Rosa Myers, Age - 75 y.o. - 1950 Room Number - 222-04/222-04 A Consulting - Geno Waddell MD Primary Care Physician - No [facility] care provider on file. [id number] Date of Admission - 06/01/2025 10:53 AM Hospital Day - 6 Problem List[1] Chief Complaint: Jose Maria Myers is a 75 y.o. female who pulmonary is following for VDRF Subjective/Interval History: Patient awake resting in bed. She denied any chest pain or shortness of breath this morning. Remains stable on vent AC/VC. RN reports less secretions today however patient has requested to be suctioned several times. Secretions white in color. Tunneled HD catheter was removed yesterday as there was concern for infection. A pertinent review of systems was performed and was otherwise non-contributory except as detailed in Subjective section above. Objective: Vitals: BP 119/61 Pulse 61 Temp 36.7 C (98 F) (Oral) Resp 20 Ht 5' 5" (1.651 m) Wt 221 lb 12.5 oz (101 kg) SpO2 100% BMI 36.91 kg/m Pulse Ox: SpO2 Av.6 % Min: 98 % Max: 100 % Supplemental O2: 30% FiO2 on Vent. I/O 24HR INTAKE/OUTPUT: Intake/Output Summary (Last 24 hours) at 06/07/2025 1142 Last data filed at 06/07/2025 0620 Gross per 24 hour Intake 1754 ml Output 0 ml Net 1754 ml Physical Exam: Physical Exam Vitals and nursing note reviewed. Constitutional: General: She is not in acute distress. Comments: Chronically ill appearing Neck: Trachea: Tracheostomy present. Cardiovascular: Rate and Rhythm: Normal rate and regular rhythm. Pulmonary: Effort: Pulmonary effort is normal. No respiratory distress. Breath sounds: Rales present. No wheezing or rhonchi. Comments: On Vent AC/VC Musculoskeletal: Right lower leg: No edema. Left lower leg: No edema. Psychiatric: Mood and Affect: Mood normal. Behavior: Behavior normal. Behavior is cooperative. Medications: Allergies[2] Current Medications[3] PRN Meds[4] Labs: CBC: Recent Labs 06/05/25 0306 06/06/25 0514 06/07/25 0335 WBC 5.7 5.9 7.4 HGB 7.6* 7.2* 7.5* HCT 24.8* 24.5* 24.4* PLT 234 197 234 MCV 84.6 86.3 84.4 RDW 19.4* 19.4* 19.2* BMP: Recent Labs 06/05/25 0306 06/06/25 0514 06/07/25 0335 NA 137 134* 133* K 3.9 3.7 3.7 CL 100 98 96* CO2 27 26 26 BUN 18 30* 40* CREATININE 1.79* 2.79* 3.68* CALCIUM 8.9 9.0 9.4 LFTs: Recent Labs 06/05/25 0306 06/06/25 0514 06/07/25 0335 AST 21 21 19 ALT 13 12 9 PROT 6.7 6.5 6.8 ALBUMIN 2.7* 2.6* 2.7* BILITOT 0.7 0.5 0.6 ALKPHOS 119 113 123 Glucose: Recent Labs 06/05/25 0306 06/05/25 0610 06/05/25 1820 06/06/25 0104 06/06/25 0514 06/06/25 0518 06/06/25 1154 06/06/25 1720 06/06/25 2105 06/06/25 2342 06/07/25 0335 06/07/25 0543 GLUCOSE 67* -- -- -- 145* -- -- -- -- -- 119* -- POCGLU -- < > 138* 145* -- 151* 153* 110* 138* 129* -- 137* < > = values in this interval not displayed. Microbiology: + C difficile Sputum culture: pending Imaging/ Testing: CXR 06/06/25: IMPRESSION: 1. Interval increase in bilateral layering pleural effusions. 2. Interval increase in interstitial edema and/or infiltrates Assessment and Plan/Recommendations: Chronic respiratory failure Ventilator dependence Tracheostomy dependence Hx bilateral pleural effusions, transudate- required thoracentesis in the past ESRD with pulmonary edema Anemia + C Diff CXR with bilateral effusion and interstitial edema/infiltrates. Patient went down for thoracentesis today which was ordered by primary team. Removed 600 ml dacosta fluid. Follow up on pleural fluid studies Unable to complete HD yesterday due to possible infected line. Tunneled line removed 06/06 and sent for culture. May need temporary line placed for HD/ volume management. Nephrology following Noted to require frequent suctioning yesterday with increased secretions. Culture has been sent and patient was started on Cefepime by primary team. RN today reports secretions have improved however patient continues to request frequent suctioning. Continue DuoNeb's and hypertonic saline aerosol ID consulted for antibiotic management. Respiratory status stable on vent. Continue AC/VC. No plans for weaning Routine trach care & pulmonary hygiene Advance Directive: Full Code Discharge planning: Anticipate discharge back to [facility] once medically stable Case discussed with nurse and patient Questions and concerns addressed. [1] Patient Active Problem List Diagnosis Anemia Anemia, unspecified type Moderate malnutrition (CMS/HCC) (HCC) [2] No Known Allergies [3] Current Facility-Administered Medications: acetaminophen (Tylenol) tablet 650 mg, 650 mg, Oral, q6h PRN OR acetaminophen (Tylenol) suppository 650 mg, 650 mg, Rectal, q6h PRN, Sharyn Amaya MD albumin human 5 % IV solution 25 g, 25 g, IntraVENous, TID PRN, Rad Acosta MD albuterol (2.5 MG/3ML) 0.083% nebulizer solution 2.5 mg, 2.5 mg, Nebulization, q6h PRN, RENITA Tyler CNP atorvastatin (Lipitor) tablet 40 mg, 40 mg, Per G Tube, Daily, Grzegorz Chatterjee MD, 40 mg at 06/07/25 0849 busPIRone (Buspar) tablet 5 mg, 5 mg, Per G Tube, TID, Grzegorz Chatterjee MD, 5 mg at 06/07/25 0848 carvedilol (Coreg) tablet 3.125 mg, 3.125 mg, Per G Tube, BID WC, Grzegorz Chatterjee MD, 3.125 mg at 06/07/25 0849 cefepime (Maxipime) 1,000 mg in sodium chloride 0.9 % 50 mL IVPB, 1,000 mg, IntraVENous, q12h, Gneo Waddell MD, Stopped at 06/07/25 0750 dextrose 5 % and sodium chloride 0.45 % bolus 500 mL, 500 mL, IntraVENous, TID PRN, Rad Acosta MD dextrose 5 % infusion, 100 mL/hr, IntraVENous, PRN, Sharyn Amaya MD, Stopped at 06/02/25 1757 dextrose 50 % solution 12.5 g, 12.5 g, IntraVENous, PRN, Sharyn Amaya MD fidaxomicin (Dificid) tablet 200 mg, 200 mg, Per G Tube, BID, Grzegorz Chatterjee MD, 200 mg at 06/07/25 0848 FLUoxetine (PROzac) capsule 20 mg, 20 mg, Per G Tube, Daily, Grzegorz Chatterjee MD, 20 mg at 06/07/25 0849 furosemide (Lasix) tablet 20 mg, 20 mg, Per G Tube, Daily, Grzegorz Chatterjee MD, 20 mg at 06/07/25 0849 glucagon (human recombinant) injection 1 mg, 1 mg, IntraMUSCular, PRN, Sharyn Amaya MD glucose oral gel 15 g, 15 g, Oral, PRN, Sharyn Amaya MD heparin injection 1,200-2,000 Units, 1,200-2,000 Units, IntraCATHeter, PRN, RENITA Clifford CNP, 1,600 Units at 06/04/25 1923 heparin injection 1,200-2,000 Units, 1,200-2,000 Units, IntraCATHeter, PRN, Mi RENITA Singh - METALLURGIST HELPER, 1,600 Units at 06/04/251921 heparin injection 5,000 Units, 5,000 Units, SubCUTAneous, 2 times per day, Sharyn Amaya MD, 5,000 Units at 06/07/25 0849 insulin glargine (Lantus) injection 25 Units, 25 Units, SubCUTAneous, BID, Sharyn Amaya MD, 25 Units at 06/07/25 0849 Insulin Lispro (Humalog) injection 0-6 Units, 0-6 Units, SubCUTAneous, q6h, Grzegorz Chatterjee MD, 1 Units at 06/06/25 1230 ipratropium-albuterol (Duo-Neb) 0.5-2.5 mg/3 mL nebulizer solution 3 mL, 3 mL, Nebulization, q4h, Neelima Hanks APRN - METALLURGIST HELPER, 3 mL at 06/07/25 0858 miconazole (Micotin) 2 % powder, , Topical, BID, Patrica Weinstein APRN - METALLURGIST HELPER, 1 Application at 06/07/25 0850 midodrine (Proamatine) tablet 10 mg, 10 mg, Per G Tube, TID, Grzegorz Chatterjee MD, 10 mg at 06/07/25 0849 morphine injection 1 mg, 1 mg, IntraVENous, q4h PRN, Geno Waddell MD, 1 mg at 06/07/25 09 pantoprazole (ProtoNix) 40 mg in sodium chloride (PF) 0.9 % 10 mL injection, 40 mg, IntraVENous, Nightly, Grzegorz Chatterjee MD, 40 mg at 06/06/252051 polyethylene glycol (PEG) 3350 (Miralax) packet 17 g, 17 g, Oral, Daily PRN, Sharyn Amaya MD promethazine (Phenergan) tablet 12.5 mg, 12.5 mg, Oral, q6h PRN OR promethazine (Phenergan) injection 12.5 mg, 12.5 mg, IntraMUSCular, q6h PRN OR promethazine (Phenergan) suppository 12.5 mg, 12.5 mg, Rectal, q6h PRN, Sharyn Amaya MD sodium chloride 0.9 % infusion, 250 mL/hr, IntraVENous, PRN, Omid Orona MD sodium chloride 0.9 % infusion, 250 mL/hr, IntraVENous, PRN, Geno Waddell MD sodium chloride 3 % hypertonic nebulizer solution 3 mL, 3 mL, Nebulization, BID, RENITA Tyler CNP, 3 mL at 06/07/25 0900 stomahesive in petrolatum (ET Mix), , Topical, PRN, RENITA Gtz CNP stomahesive in petrolatum (ET Mix), , Topical, 3 times per day, RENITA Gtz CNP, Given at 06/07/25 0558 [4] PRN medications: acetaminophen OR acetaminophen, albumin human, albuterol, dextrose 5 % and sodium chloride 0.45 %, dextrose, dextrose, glucagon (rDNA), glucose, heparin, heparin, morphine sulfate, polyethylene glycol (PEG) 3350, promethazine OR promethazine OR promethazine, sodium chloride, sodium chloride, stomahesive in petrolatum Images from the original note were not included. [facility] Wound Care Progress Note Rosa Myers AGE: 75 y.o. GENDER: female : 1950 Subjective: HISTORY of PRESENT ILLNESS HPI Rosa Myers is a 75 y.o. female who presents for a wound follow up. HPI: Ms. Myers is a 75 y.o. female who presents to the emergency department with chief complaint of abnormal blood counts. [facility] that shows hemoglobin of 6.5. Patient has chronic renal failure, per her nursing notes receives dialysis Wednesday through Wednesday at her facility. Patient has tracheostomy in place for chronic respiratory failure, PEG tube in place. Patient is able to answer questions by nodding her head yes and no but somewhat limited history due to tracheostomy in place. Admitted for anemia and chronic renal failure. She is currently admitted to ICU. Wound Care consulted for multiple wounds - coccyx, groin, nose, feet and left leg. Patient resting in bed. Treatment completed. PAST MEDICAL HISTORY Medical History[1] PAST SURGICAL HISTORY Surgical History[2] FAMILY HISTORY Family History[3] SOCIAL HISTORY Social History[4] ALLERGIES Allergies[5] MEDICATIONS Medications Ordered Prior to Encounter[6] REVIEW OF SYSTEMS Pertinent items are noted in HPI. Objective: BP 119/61 Pulse 61 Temp 36.7 C (98 F) (Oral) Resp 20 Ht 5' 5" (1.651 m) Wt 221 lb 12.5 oz (101 kg) SpO2 100% BMI 36.91 kg/m PHYSICAL EXAM General appearance: in no apparent distress, in no respiratory distress and acyanotic, alert, and cooperative Skin: warm and dry Pulmonary: NAD, trached on ventilator Abdomen: soft, nontender, and nondistended Extremities: warm and dry Nose - 1.0 x 0.8 x 0.1cm - thin red dry tissue noted with no drainage, jaleesa wound tissue intact Forehead - 1.0 x 2.0 x 0.1cm - wound bed with thin pink dry eschar, no drainage, jaleesa wound tissue intact. 06/04/25 Left heel -1.0 x 1.0 x 0.0cm - thin red, dry scab noted, no drainage, jaleesa wound tissue with peeling tissue. 06/04/25 Right abdominal skin fold - erosion of tissue noted with superficial pink tissue, no drainage, jaleesa wound tissue fragile/peeling 06/04/25 Sacrum - 1.0 x 1.0 x 0.1cm - pink tissue loss within gluteal cleft region, jaleesa wound tissue fragile and peeling, no drainage noted. 06/04/25 Right medial thigh - 1.0 x 1.5 x 0.1cm - wound bed with large pink tissue and small yellow tissue in a linear pattern, jaleesa wound tissue intact, fragile, scant serosang drainage. 06/04/25 LABS CBC: Lab Results Component Value Date WBC 7.4 06/07/2025 HGB 7.5 (L) 06/07/2025 HCT 24.4 (L) 06/07/2025 MCV 84.4 06/07/2025 PLT 234 06/07/2025 BMP: Lab Results Component Value Date NA 133 (L) 06/07/2025 K 3.7 06/07/2025 CL 96 (L) 06/07/2025 CO2 26 06/07/2025 BUN 40 (H) 06/07/2025 CREATININE 3.68 (H) 06/07/2025 PT/INR: No results found for: "PROTIME", "INR" Prealbumin: No results found for: "PREALBUMIN" Albumin:No components found for: LABALBU Sed Rate:No results found for: SEDRATE Micro: No components found for: BC Assessment/Plan: Nursing staff to perform dressing change: Forehead stage 2 pressure injury: -cleanse with soap and water, pat dry, leave PRAVEEN daily and PRN Nose Stage 2 pressure injury (POA): -cleanse with soap and water, pat dry, leave PRAVEEN daily and PRN Left heel Stage 2 pressure injury (POA): -cleanse with NS, apply skin barrier wipe, leave PRAVEEN daily and PRN Right/Left abdominal skin fold - Fungal: -cleanse with soap and water and dry thoroughly, apply Miconazole powder, leave STAFF HOME THERAPY RN BID and PRN Sacral Stage 3 pressure injury(POA): - cleanse with soap and water, apply ET mix TID and PRN, leave PRAVEEN Sacral MASD d/t friction/fluids: - cleanse with soap and water, apply ET mix TID and PRN, leave PRAVEEN Right medial thigh - stage 3 Pressure injury (POA): - cleanse with soap and water, apply ET mix TID and PRN, leave [employer]AFF [employer] THERAPY RN -continue ICU bed -Q2hr/PRN turns -glide sheets for T&R -continence checks Q1-2 Hrs/PRN Nutritional support Wound Care to follow Recommend to follow up at [facility] wound [facility] center after hospital discharge. Any questions or concerns please secure chat "[facility] wound/ostomy". I personally obtained the soto and critical portions of the history and physical exam. I reviewed the labs, imaging studies, and electronic medical record. I reviewed the chart documentation and discussed the patient with treatment team members. I have edited the note to reflect my clinical findings and my assessment and plan. Please note, the time of this note does not reflect the time I saw this patient today, but the time of this documentaton. Portions of this note including HPI, ROS, impression/plan, and examination may have been copied forward from admission to today as to provide important historical information essential in contributing to medical decision making. Documentation has been reviewed and edited as necessary to support clinical decision making for today's visit and to reflect my own independent evaluation of this patient. Decision making for today's visit and to reflect my own independent evaluation of this patient. [1] No past medical history on file. [2] No past surgical history on file. [3] No family history on file. [4] Social History Tobacco Use Smoking status: Never Passive exposure: Past Smokeless tobacco: Never [5] No Known Allergies [6] No current facility-administered medications on file prior to encounter. Current Outpatient Medications on File Prior to Encounter Medication Sig Dispense Refill atorvastatin (Lipitor) 40 MG tablet Take 40 mg by mouth daily. Via PEG busPIRone (Buspar) 5 MG tablet Take 5 mg by mouth 3 times daily. carvedilol (Coreg) 12.5 MG tablet Take 12.5 mg by mouth 2 times daily. Hold before dialysis FLUoxetine (PROzac) 20 MG/5ML solution Take 20 mg by mouth daily. Via PEG furosemide (Lasix) 20 MG tablet Take 20 mg by mouth daily. Via PEG, given on wed/Wednesday for weight gain insulin glargine (Lantus) 100 UNIT/ML injection Inject 25 Units under the skin 2 times daily. Insulin Lispro (Humalog) 100 UNIT/ML solution injection Inject 2-12 Units under the skin 3 times daily (with meals). Sliding scale: 150-200 = 2 units, 102-250 = 4 units, 251-300 = 6 units, 301-350 = 8 units, 351-400 = 10 units, 401-450 = 12 units midodrine (Proamatine) 10 MG tablet Take 10 mg by mouth 3 times daily. Via PEG, given M-F 1hr prior to dialysis pantoprazole (ProtoNix) 20 MG EC tablet Take 20 mg by mouth every morning (before breakfast). Do not crush, chew, or split. Petrolatum ointment Apply 1 Application topically 2 times daily as needed (forehead itching). Cosigned by Miguel Barraza DO at 06/11/2025 4:05 PM EDT [facility] Progress Note 06/07/2025 Subjective: Admit Date: 06/01/2025 PCP: No primary care provider on file. 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 She was admitted to hospital on ICU floor given Vent status but followed by hospital medicine, pulmonology and nephrology during stay. Size Stamper consulted for management of tube feeding = in which she take Nephro Carb steady tube feeds. During admission she required AC/VC ventilation settings and unable to tolerate weaning to PSV due to volume status, deconditioning, anemia and numerous co-morbidities, During admission, she developed C diff requiring insertion of fecal management system due to current Stage III sacral ulcer which was removed due to intolerance. During admission, her diaysis port appeared red, removed and cultured. Developed increased sputum production repeat imaging showing bilateral effusions - and thoracentesis order for same, she was placed on cefepime when initial findings showing Gram negative bacillus. Interval History: Seen in room, increased shortness of breath - with thickening sputum - repeat cultures showing moderate gram negative bacilli - started on cefepime, and pneumonia pcr sent in. She feels she has increased sputum in her tracheostomy- denies any fever, chills, pain or discomfort. Feels that her diarrhea has slowed down at this time. No headache or other concerns expressed at this time. Discussed care with IR, nephrology - she will lilkely need a temporary dialysis port placed with blood cultures and tip of catheter being cultured prior. ID consulted for same to make sure we are not missing an silent bacteremia. No overnight issues. Case and plan discussed with patient and bedside nurse. All questions answered. Diet, tube feeding no tray PEG; Nepro w/CARB Steady; Continuous; Yes; 10; Q 4 Hours; 25; 45 24HR INTAKE/OUTPUT: Intake/Output Summary (Last 24 hours) at 06/07/2025 0504 Last data filed at 06/06/2025 1721 Gross per 24 hour Intake 1760 ml Output -- Net 1760 ml Past Medical History: Medical History[1] LABS: CBC: Recent Labs 06/05/2530506/06/2551306/07/25 033 WBC 5.7 5.9 7.4 RBC 2.93* 2.84* 2.89* HGB 7.6* 7.2* 7.5* HCT 24.8* 24.5* 24.4* MCV 84.6 86.3 84.4 RDW 19.4* 19.4* 19.2* PLT 234 197 234 BMP: Recent Labs 06/05/2530506/06/2551306/07/25 033 NA 137 134* 133* K 3.9 3.7 3.7 CL 100 98 96* CO2 27 26 26 BUN 18 30* 40* CREATININE 1.79* 2.79* 3.68* GLUCOSE 67* 145* 119* CALCIUM 8.9 9.0 9.4 ANIONGAP 10 10 11 LIVER PROFILE: Recent Labs 06/05/2530506/06/2551306/07/25 033 AST 21 21 19 ALT 13 12 9 BILITOT 0.7 0.5 0.6 ALKPHOS 119 113 123 PROT 6.7 6.5 6.8 PT/INR: No results for input(s): "PROTIME", "INR" in the last 72 hours. CARDIAC ENZYMES: No results for input(s): "TROPONINI" in the last 72 hours. Procalcitonin: No results found for: "PROCAL" COVID-19 PCR: No results for input(s): "COVID19" in the last 72 hours. Objective: Vitals: BP 128/55 (BP Location: Left arm, Patient Position: Lying) Pulse 66 Temp 37.6 C (99.6 F) (Oral) Resp 23 Ht 5' 5" (1.651 m) Wt 221 lb 12.5 oz (101 kg) SpO2 100% BMI 36.91 kg/m Pulse Ox: SpO2 Av.4 % Min: 92 % Max: 100 % Supplemental O2: Physical Exam Vitals and nursing note reviewed. Constitutional: Appearance: She is not ill-appearing. Comments: Chronically ill patient, Non - verbal mouths answers Mouths she feels congested HENT: Mouth/Throat: Mouth: Mucous membranes are dry. Pharynx: Oropharynx is clear. Eyes: Conjunctiva/sclera: Conjunctivae normal. Neck: Comments: Tracheostomy site - dry and intact, no surrounding redness or erythema Cardiovascular: Rate and Rhythm: Normal rate and regular rhythm. Heart sounds: No murmur heard. Pulmonary: Effort: Pulmonary effort is normal. No respiratory distress. Breath sounds: Rales present. No wheezing. Abdominal: General: Bowel sounds are normal. Tenderness: There is no abdominal tenderness. Musculoskeletal: Right lower leg: Edema present. Left lower leg: Edema present. Comments: Patient has bilateral foot braces, bandages apply to heel bilaterally Skin: General: Skin is warm. Capillary Refill: Capillary refill takes less than 2 seconds. Coloration: Skin is pale. Findings: Bruising present. Comments: Tunnel line removed and dressing in place - no further redness or erythema to the area Venous stasis changes to the extremity Neurological: General: No focal deficit present. Mental Status: She is alert and oriented to person, place, and time. Medications: Scheduled PRN Scheduled Meds[2] PRN Meds[3] Continuous Continuous Meds[4] Assessment Data: (CAT1) Reviewed 3 or more notes from different specialty or health system (each=1). (CAT1) Reviewed 3 or more labs/studies ordered by another provider not previously counted (each=1, panels count as 1). (CAT1) Ordered 3 or more new labs and/or studies (each=1, panels count as 1). (LOW: 2x CAT1 or independent historian MOD: 3x CAT1 or 1x CAT3 EXTENSIVE: 3x CAT1 and 1x CAT3) Acute, acute on chronic, unstable/uncontrolled chronic problems/diagnoses: Acute on chronic anemia of chronic disease status post 1 unit of packed red blood cells Monitor Chronic hypoxic respiratory failure with tracheostomy -vent dependent Pulmonology following Morphine for dyspnea discomfort leading to anxiety Tracheostomy dependency Chronic bilateral pleural effusions with history of thoracentesis in the past Repeat CXR 06/06- increase bilteral layering pleual effusions, Gram negaive bacilli - start on cefepime on 06/07 Follow up final cultures of the sputum culture - pneumonia pcr added to sputum Thoracentesis order for left side, may need right side too End-stage renal disease on hemodialysis Follows with Dr. Loredo\\ Pulled tunnel line on 06/06, line vacation until Friday 06/08 - if cultures negative reinsert new tunnel, if not back may need temporary dialysis port Blood cultures ordered as line was purulent in appearance when removed, ID consulted Chronic volume overload Lasix 20 mg per G-tube Heart failure -systolic, unable to find ejection fraction Carvedilol 3.125 mg per G-tube twice daily Lasix 20 mg per G-tube daily Midodrine 10 mg per G-tube 3 times daily, with 10 mg 1 hour before dialysis Severe malnutrition with PEG tube feeds Nephro carb steady feeds during hospitalization, continue feeds per facility Chronic pressure ulcers present on arrival -coccyx, sacrum, groin and nose Diarrhea secondary C. difficile infection Fidaxomicin 06/03- GERD Pantoprazole IV Hypokalemia Replenished Stable chronic problems affecting care, new non-acute diagnoses: Depression Anxiety BuSpar 5 mg per G-tube 3 times daily Fluoxetine 20 mg per G-tube daily Chronic candidiasis Miconazole powder to abdominal skin folds Diabetes mellitus with polyneuropathy Blood sugars before every meal Glargine 25 units subcu twice daily Sliding scale insulin every 6 hours Hypoglycemia protocol Plan As a result of the above findings & factors, the following mgmt was pursued: - 06/05-present, labs reviewed, continue to have diarrhea fecal management system inserted, likely will need to decrease frequency of diarrhea prior to going back to facility, continue fidaxomicin, monitor for volume intake given - chronic fluid overload with excessive loss via diarrhea - may need to balance electrolytes going forward, by the time we rounded - did not tolerate rectal tube and was removed. Ensure good jaleesa care. Not medically stable for discharge at this time. - 06/06- VS, labs reviewed, Over the past 24 hours no - stools documented on records, bump in creatinine - could be attributed to diarrhea. Considered transfusing 1 units, but will defer at this time,.STAT removal and tip of culture sent to lab, plan for line vacation until Wednesday afternoon and then insert - if tip cultures negative - reinsert tunnerl if not will need temporary line. - 06/07 - VS, labs reviewed, CXR showing continual pleural effusion - will discuss obtain thoracentesis with one today and possibly one tomorrow, currently on catheter vacation and awaiting culture of the tip of the dilaysis line, Hgb stable, does have some bump in kidney function - will discuss with nephrology - may need temporary dialysis line while we wait for the tip culture to return, Sputum samples showing gram negative bacilli and gram positive bacilli and cocci - and cefepime restarted - waiting final cultures and pneumonia pcr added to sample for faster ID of organism. Currently not medically stable for transfer back to [facility]. ID consulted for central line being purulent, Also sent in blood cultures to ensure no silent bacteriemia - am labs, replace lytes prn - PT/OT/CM/SW - delirium precautions: increase activity and limit nighttime disturbances - DVT prophylaxis: heparin and encourage ambulation Complexity: End-stage chronic illness posing a constant threat to life (HIGH). Risk: Admission to hospital-level care was considered or occurred (HIGH). Escalation of care to ICU was considered or occurred (HIGH). Advance Directive: Full Code Anticipated Discharge - Date - - Location - [facility] - Pending the following - reinsertio nof line, blood cultures negtive at 48 hours, ID recommendations, Total time spent (which include face to face and non face to face encounters) : 65 minutes Toxic drug monitoring/narrow therapeutic index drug monitoring : # Drug name : Lasix, Heparin # Route administered : oral, Subq # Method of monitoring : monitor for bleeds, electrolyts daily No emergency contact information on file. Geno Waddell MD Division of Hospitalist Medicine Acute [facility] [1] No past medical history on file. [2] atorvastatin, 40 mg, Per G Tube, Daily busPIRone, 5 mg, Per G Tube, TID carvedilol, 3.125 mg, Per G Tube, BID WC fidaxomicin, 200 mg, Per G Tube, BID FLUoxetine, 20 mg, Per G Tube, Daily furosemide, 20 mg, Per G Tube, Daily heparin, 5,000 Units, SubCUTAneous, 2 times per day insulin glargine, 25 Units, SubCUTAneous, BID insulin lispro, 0-6 Units, SubCUTAneous, q6h ipratropium-albuterol, 3 mL, Nebulization, q4h miconazole, , Topical, BID midodrine, 10 mg, Per G Tube, TID pantoprazole (ProtoNix) 40 mg in sodium chloride (PF) 0.9 % 10 mL injection, 40 mg, IntraVENous, Nightly sodium chloride, 3 mL, Nebulization, BID stomahesive in petrolatum, , Topical, 3 times per day [3] PRN medications: acetaminophen OR acetaminophen, albumin human, albuterol, dextrose 5 % and sodium chloride 0.45 %, dextrose, dextrose, glucagon (rDNA), glucose, heparin, heparin, morphine sulfate, polyethylene glycol (PEG) 3350, promethazine OR promethazine OR promethazine, sodium chloride, sodium chloride, stomahesive in petrolatum [4] [facility] Respiratory Care Department Progress Note Spontaneous Awakening Trial Wean Screen SpO2>/=88%: Yes (06/07/25256) FiO2</=50%: Yes (06/07/25256) PEEP </=8cmH2O: Yes (06/07/25256) HR <140 BPM: Yes (06/07/25256) RR </= 35 breaths/min: Yes (06/07/25256) MAP >/= 65mmHg: Yes (06/07/25256) Arterial pH >7.30: Yes (06/07/25256) Safety Screen Spontaneous Breathing Trial (SBT - RT) : SBT Held - Chronic Ventilator Dependent (06/07/25256) Spontaneous Breathing Trial Vent Settings Vent Mode: Assist control (06/06/252041) Mandatory Type: VC+ (06/06/252041) Resp Rate (Set): 14 (06/06/251613) Vt (Set, mL): 450 mL (06/06/251613) FiO2 (%): 30 % (06/06/252041) PEEP/CPAP (cm H2O): 5 cm H20 (06/06/251613) Inspiratory Time (sec): 0.9 sec (06/06/251613) Vitals MAP (mmHg): 76 (06/06/252041) Heart Rate: 62 (06/06/252041) Resp: 18 (06/06/252041) SpO2: 99 % (06/06/252041) Suctioning/Secretions Secretion Amount: Large (06/06/251155) Secretion Color: White (06/06/251155) Secretion Consistency: Thick (06/06/251155) ABG results No results for input(s): "PHART", "MWN3VBI", "PO2ART", "PAC9VRL", "SO2ART", "E2OXPWRL" in the last 72 hours. Does this patient meet criteria for termination of mechanical ventilation No - Chronic Vent Dependent Name of physician notified via secure chat or in person : n/a (NA if patient did not meet criteria) Comments: Thank you for involving Respiratory in the care of this patient, [facility] Nephrology Progress Note Subjective/ 75 y.o. year old female who we are seeing in consultation for ESRD and management of HD. Follows with Dr. Loredo and an outpatient HD schedule M-F at [facility]. S/p iHD 06/04 for 1.6 L removal Sleeping, easily arousable, nods head On trach and PEG. Tunneled dialysis catheter on right chest wall. No blood in stool or black stool reported. Unsure if diarrhea has improved BP stable, on the lower side Denies pain No LE edema No change in PFSH All data labs/interval notes and overnight issues are reviewed Objective/ Vitals: 06/06/25 0330 06/06/25 0803 06/06/25 0833 06/06/25 1217 BP: 122/51 (!) 111/42 Pulse: 57 58 67 64 Resp: 15 14 18 19 Temp: 37.2 C (99 F) TempSrc: Oral SpO2: 100% 100% 100% 100% Weight: Height: 24HR INTAKE/OUTPUT: Intake/Output Summary (Last 24 hours) at 06/06/2025 1316 Last data filed at 06/06/2025 1156 Gross per 24 hour Intake 1723 ml Output -- Net 1723 ml Wt Readings from Last 3 Encounters: 06/05/25 101 kg (221 lb 12.5 oz) Constitutional: Alert, awake, obese HEENT: no pallor/cyanosis or icterus Cardiovascular: S1, S2 without m/r/g Respiratory: CTA, B/l equal air entry trach present Abdomen: +bs, soft, Non tender non distended Ext: No LE edema No CVA tenderness Neurologic Alert and oriented; answers questions Psychiatric Calm and cooperative normal modd and affect Neck: supple, no thyroid enlargement, no JVD elevation Skin: warm, moist, no rashes TDC R chest Medications: Scheduled Meds[1] Continuous Infusions:Continuous Meds[2] PRN Meds:PRN Meds[3] Data/ Recent Labs 06/04/2543106/05/2530506/06/25 0514 WBC 6.2 5.7 5.9 HGB 7.4* 7.6* 7.2* HCT 23.8* 24.8* 24.5* MCV 82.6 84.6 86.3 PLT 247 234 197 Recent Labs 06/04/2543106/05/2530506/06/25 0514 NA 130* 137 134* K 3.4* 3.9 3.7 CL 93* 100 98 CO2 26 27 26 GLUCOSE 147* 67* 145* MG 2.1 -- -- BUN 43* 18 30* CREATININE 3.51* 1.79* 2.79* Albumin: No components found for: "LABALBU" Calcium: Lab Results Component Value Date CALCIUM 9.0 06/06/2025 Ionized Calcium: No components found for: "IONCA" Magnesium: Lab Results Component Value Date MG 2.1 06/04/2025 Phosphorus: No results found for: "PHOS" y.o. female with ESRD N18.6 C. Difficile A04.72 Anemia D63.1 Volume overload E87.70 Hyponatremia E87.1 Chronic respiratory failure J96.10 Diabetes E11.22 Dependence on hemodialysis RECOMMENDATIONS: - HD schedule M-F at [facility], follows with Dr. Loredo. S/p iHD 06/04 for 1.6L UF. -HD catheter to be taken out today as there appears to be tunnel infection at the site. -To get new HD catheter site at a different site tomorrow. HD tomorrow. - Okay for Midodrine 10 mg 1 hour prior to iHD for BP support during fluid removal. - Electrolytes improve with dialysis, continue to monitor trends - Anemia -Transfuse to keep Hgb > 7.0 ESRD hgb goal > 10. Will continue anemia algorithm OP with dialysis. IV Fe supplementation and DORIS management with OP tx. - Avoid nephrotoxins and IV contrast dye - Dose all meds per GFR < 15 - We will follow closely - D/w Dr. Waddell. D/w RN. [1] atorvastatin, 40 mg, Per G Tube, Daily busPIRone, 5 mg, Per G Tube, TID carvedilol, 3.125 mg, Per G Tube, BID WC fidaxomicin, 200 mg, Per G Tube, BID FLUoxetine, 20 mg, Per G Tube, Daily furosemide, 20 mg, Per G Tube, Daily heparin, 5,000 Units, SubCUTAneous, 2 times per day insulin glargine, 25 Units, SubCUTAneous, BID insulin lispro, 0-6 Units, SubCUTAneous, q6h miconazole, , Topical, BID midodrine, 10 mg, Per G Tube, TID pantoprazole (ProtoNix) 40 mg in sodium chloride (PF) 0.9 % 10 mL injection, 40 mg, IntraVENous, Nightly stomahesive in petrolatum, , Topical, 3 times per day [2] [3] PRN medications: acetaminophen OR acetaminophen, albumin human, albuterol, dextrose 5 % and sodium chloride 0.45 %, dextrose, dextrose, glucagon (rDNA), glucose, heparin, heparin, polyethylene glycol (PEG) 3350, promethazine OR promethazine OR promethazine, sodium chloride, sodium chloride, stomahesive in petrolatum Images from the original note were not included. [facility] [place] [address] [place] [id number] Patient - Rosa Myers, Age - 75 y.o. - 1950 Room Number - 222-04/222-04 A Consulting - Geno Waddell MD Primary Care Physician - No primary care provider on file. Date of Admission - 06/01/2025 10:53 AM Hospital Day - 5 Problem List[1] Chief Complaint: Jose Maria Myers is a 75 y.o. female who pulmonary is following for VDRF Subjective/Interval History: Patient resting during rounds. Arouses easily to verbal stimuli. Denied any chest pain or shortness of breath. Hgb 7.2 A pertinent review of systems was performed and was otherwise non-contributory except as detailed in Subjective section above. Objective: Vitals: BP 122/51 Pulse 67 Temp 37.2 C (99 F) (Oral) Resp 18 Ht 5' 5" (1.651 m) Wt 221 lb 12.5 oz (101 kg) SpO2 100% BMI 36.91 kg/m Pulse Ox: SpO2 Av % Min: 100 % Max: 100 % Supplemental O2: I/O 24HR INTAKE/OUTPUT: Intake/Output Summary (Last 24 hours) at 06/06/2025 1156 Last data filed at 06/06/2025 0834 Gross per 24 hour Intake 1652 ml Output -- Net 1652 ml Physical Exam: Physical Exam Vitals and nursing note reviewed. Constitutional: General: She is not in acute distress. Comments: Chronically ill appearing Neck: Trachea: Tracheostomy present. Cardiovascular: Rate and Rhythm: Normal rate and regular rhythm. Pulmonary: Effort: Pulmonary effort is normal. No respiratory distress. Breath sounds: No wheezing, rhonchi or rales. Comments: On Vent AC/VC Musculoskeletal: Right lower leg: No edema. Left lower leg: No edema. Psychiatric: Mood and Affect: Mood normal. Behavior: Behavior normal. Behavior is cooperative. Medications: Allergies[2] Current Medications[3] PRN Meds[4] Labs: CBC: Recent Labs 06/04/25 0432 06/05/25 0306 06/06/25 0514 WBC 6.2 5.7 5.9 HGB 7.4* 7.6* 7.2* HCT 23.8* 24.8* 24.5* PLT 247 234 197 MCV 82.6 84.6 86.3 RDW 19.5* 19.4* 19.4* BMP: Recent Labs 06/04/25 0432 06/05/25 0306 06/06/25 0514 NA 130* 137 134* K 3.4* 3.9 3.7 CL 93* 100 98 CO2 26 27 26 BUN 43* 18 30* CREATININE 3.51* 1.79* 2.79* CALCIUM 9.0 8.9 9.0 MG 2.1 -- -- LFTs: Recent Labs 06/04/25 0432 06/05/25 0306 06/06/25 0514 AST 19 21 21 ALT 11 13 12 PROT 6.5 6.7 6.5 ALBUMIN 2.4* 2.7* 2.6* BILITOT 0.7 0.7 0.5 ALKPHOS 130 119 113 Glucose: Recent Labs 06/04/25 0432 06/04/25 0520 06/04/25 2343 06/05/25 0306 06/05/25 0610 06/05/25 0811 06/05/25 1203 06/05/25 1820 06/06/25 0104 06/06/25 0514 06/06/25 0518 06/06/25 1154 GLUCOSE 147* -- -- 67* -- -- -- -- -- 145* -- -- POCGLU -- < > 105* -- 85 120* 113* 138* 145* -- 151* 153* < > = values in this interval not displayed. Microbiology: + C difficile Imaging/ Testing: CXR 06/01/25: IMPRESSION: Findings consistent with pulmonary edema/vascular congestion. Bilateral pleural effusions with associated atelectasis/consolidative changes. Assessment and Plan/Recommendations: Chronic respiratory failure Ventilator dependence Tracheostomy dependence Hx bilateral pleural effusions, transudate- required thoracentesis in the past ESRD with pulmonary edema Anemia + C Diff Respiratory status stable on vent. Continue AC/VC. No plans for weaning Routine trach care & pulmonary hygiene Albuterol neb's prn HD, fluid removal management as per Nephrology Advance Directive: Full Code Discharge planning: Stable from pulmonary standpoint. Will continue to follow Case discussed with nurse and patient/family. Questions and concerns addressed. [1] Patient Active Problem List Diagnosis Anemia Anemia, unspecified type Moderate malnutrition (CMS/HCC) (HCC) [2] No Known Allergies [3] Current Facility-Administered Medications: acetaminophen (Tylenol) tablet 650 mg, 650 mg, Oral, q6h PRN OR acetaminophen (Tylenol) suppository 650 mg, 650 mg, Rectal, q6h PRN, Sharyn Amaya MD albumin human 5 % IV solution 25 g, 25 g, IntraVENous, TID PRN, Rad Acosta MD atorvastatin (Lipitor) tablet 40 mg, 40 mg, Per G Tube, Daily, Grzegorz Chatterjee MD, 40 mg at 06/06/25 0843 busPIRone (Buspar) tablet 5 mg, 5 mg, Per G Tube, TID, Grzegorz Chatterjee MD, 5 mg at 06/06/25 0844 carvedilol (Coreg) tablet 3.125 mg, 3.125 mg, Per G Tube, BID WC, Grzegorz Chatterjee MD, 3.125 mg at 06/06/25 0845 dextrose 5 % and sodium chloride 0.45 % bolus 500 mL, 500 mL, IntraVENous, TID PRN, Rad Acosta MD dextrose 5 % infusion, 100 mL/hr, IntraVENous, PRN, Sharyn Amaya MD, Stopped at 06/02/25 1757 dextrose 50 % solution 12.5 g, 12.5 g, IntraVENous, PRN, Sharyn Amaya MD fidaxomicin (Dificid) tablet 200 mg, 200 mg, Per G Tube, BID, Grzegorz Chatterjee MD, 200 mg at 09/10/25 0844 FLUoxetine (PROzac) capsule 20 mg, 20 mg, Per G Tube, Daily, Grzegorz Chatterjee MD, 20 mg at 06/06/25847 furosemide (Lasix) tablet 20 mg, 20 mg, Per G Tube, Daily, Gzregorz Chatterjee MD, 20 mg at 06/06/25843 glucagon (human recombinant) injection 1 mg, 1 mg, IntraMUSCular, PRN, Sharyn Amaya MD glucose oral gel 15 g, 15 g, Oral, PRN, Sharyn Amaya MD heparin injection 1,200-2,000 Units, 1,200-2,000 Units, IntraCATHeter, PRN, RENITA Clifford CNP, 1,600 Units at 06/04/251922 heparin injection 1,200-2,000 Units, 1,200-2,000 Units, IntraCATHeter, PRN, RENITA Clifford CNP, 1,600 Units at 06/04/251921 heparin injection 5,000 Units, 5,000 Units, SubCUTAneous, 2 times per day, Sharyn Amaya MD, 5,000 Units at 06/06/25843 insulin glargine (Lantus) injection 25 Units, 25 Units, SubCUTAneous, BID, Sharyn Amaya MD, 25 Units at 06/06/25843 Insulin Lispro (Humalog) injection 0-6 Units, 0-6 Units, SubCUTAneous, q6h, Grzegorz Chatterjee MD, 1 Units at 06/06/25525 miconazole (Micotin) 2 % powder, , Topical, BID, Patrica Weinstein APRN - RENEE, Given at 06/06/25843 midodrine (Proamatine) tablet 10 mg, 10 mg, Per G Tube, TID, Grzegorz Chatterjee MD, 10 mg at 06/06/25843 pantoprazole (ProtoNix) 40 mg in sodium chloride (PF) 0.9 % 10 mL injection, 40 mg, IntraVENous, Nightly, Grzegorz Chatterjee MD, 40 mg at 06/05/252026 polyethylene glycol (PEG) 3350 (Miralax) packet 17 g, 17 g, Oral, Daily PRN, Sharyn Amaya MD promethazine (Phenergan) tablet 12.5 mg, 12.5 mg, Oral, q6h PRN OR promethazine (Phenergan) injection 12.5 mg, 12.5 mg, IntraMUSCular, q6h PRN OR promethazine (Phenergan) suppository 12.5 mg, 12.5 mg, Rectal, q6h PRN, Sharyn Amaya MD sodium chloride 0.9 % infusion, 250 mL/hr, IntraVENous, PRN, Omid Orona MD sodium chloride 0.9 % infusion, 250 mL/hr, IntraVENous, PRN, Geno Waddell MD stomahesive in petrolatum (ET Mix), , Topical, PRN, RENITA Gtz CNP stomahesive in petrolatum (ET Mix), , Topical, 3 times per day, RENITA Gtz CNP, Given at 06/06/25 0520 [4] PRN medications: acetaminophen OR acetaminophen, albumin human, dextrose 5 % and sodium chloride 0.45 %, dextrose, dextrose, glucagon (rDNA), glucose, heparin, heparin, polyethylene glycol (PEG) 3350, promethazine OR promethazine OR promethazine, sodium chloride, sodium chloride, stomahesive in petrolatum Images from the original note were not included. [facility] Wound Care Progress Note Rosa Myers AGE: 75 y.o. GENDER: female : 1950 Subjective: HISTORY of PRESENT ILLNESS HPI Rosa Myers is a 75 y.o. female who presents for a wound consult. HPI: 75 y.o. female who presents to the emergency department with chief complaint of abnormal blood counts. [facility] drawl that shows hemoglobin of 6.5. Patient has chronic renal failure, per her nursing notes receives dialysis Wednesday through Wednesday at her facility. Patient has tracheostomy in place for chronic respiratory failure, PEG tube in place. Patient is able to answer questions by nodding her head yes and no but somewhat limited history due to tracheostomy in place. Admitted for anemia and chronic renal failure. She is currently admitted to ICU. Wound Care consulted for multiple wounds - coccyx, groin, nose, feet and left leg. Patient resting in ICU bed at time of visit with RN at bedside. RN states that she applied ET mix and Miconazole powder today already and her skin is improving. Deneis any further needs. PAST MEDICAL HISTORY Medical History[1] PAST SURGICAL HISTORY Surgical History[2] FAMILY HISTORY Family History[3] SOCIAL HISTORY Social History[4] ALLERGIES Allergies[5] MEDICATIONS Medications Ordered Prior to Encounter[6] REVIEW OF SYSTEMS Pertinent items are noted in HPI. Objective: BP 122/51 Pulse 67 Temp 37.2 C (99 F) (Oral) Resp 18 Ht 5' 5" (1.651 m) Wt 221 lb 12.5 oz (101 kg) SpO2 100% BMI 36.91 kg/m PHYSICAL EXAM General appearance: in no apparent distress, well developed and well nourished, in no respiratory distress and acyanotic, alert, and cooperative Skin: warm and dry Pulmonary: NAD, trached on ventilator Abdomen: soft, nontender, and nondistended Extremities: warm and dry Nose - 1.0 x 0.8 x 0.1cm - thin red dry tissue noted with no drainage, jaleesa wound tissue intact Stable Forehead - 1.0 x 2.0 x 0.1cm - wound bed with thin pink dry eschar, no drainage, jaleesa wound tissue intact. Stable 06/04/25 Left heel -1.0 x 1.0 x 0.0cm - thin red, dry scab noted, no drainage, jaleesa wound tissue with peeling tissue. Stable 06/04/25 Right abdominal skin fold - erosion of tissue noted with superficial pink tissue, no drainage, jaleesa wound tissue fragile/peeling Stable 06/04/25 Sacrum - 1.0 x 1.0 x 0.1cm - pink tissue loss within gluteal cleft region, jaleesa wound tissue fragile and peeling, no drainage noted. Stable 06/04/25 Right medial thigh - 1.0 x 1.5 x 0.1cm - wound bed with large pink tissue and small yellow tissue in a linear pattern, jaleesa wound tissue intact, fragile, scant serosang drainage. Stable 06/04/25 LABS CBC: Lab Results Component Value Date WBC 5.9 06/06/2025 HGB 7.2 (L) 06/06/2025 HCT 24.5 (L) 06/06/2025 MCV 86.3 06/06/2025 PLT 197 06/06/2025 BMP: Lab Results Component Value Date NA 134 (L) 06/06/2025 K 3.7 06/06/2025 CL 98 06/06/2025 CO2 26 06/06/2025 BUN 30 (H) 06/06/2025 CREATININE 2.79 (H) 06/06/2025 PT/INR: No results found for: "PROTIME", "INR" Prealbumin: No results found for: "PREALBUMIN" Albumin:No components found for: LABALBU Sed Rate:No results found for: SEDRATE Micro: No components found for: BC Assessment/Plan: Nursing staff to perform dressing change: Forehead stage 2 pressure injury: Nose Stage 2 pressure injury (POA): -cleanse with soap and water, pat dry, leave PRAVEEN daily and PRN Left heel Stage 2 pressure injury (POA): -cleanse with NS, apply skin barrier wipe, leave STAFF HOME THERAPY RN daily and PRN Right/Left abdominal skin fold - Fungal: -cleanse with soap and water and dry thoroughly, apply Miconazole powder, leave PRAVEEN BID and PRN Sacral Stage 3 pressure injury(POA): Sacral MASD d/t friction/fluids: Right medial thigh - stage 3 Pressure injury (POA): -cleanse with soap and water, apply ET mix TID and PRN, leave PRAVEEN -continue ICU bed -Q2hr/PRN turns -glide sheets for T&R -continence checks Q1-2 Hrs/PRN Nutritional support Wound Care to follow Recommend to follow up at [facility] wound care center after hospital discharge. Any questions or concerns please secure chat "[facility] wound/ostomy". I personally obtained the soto and critical portions of the history and physical exam. I reviewed the labs, imaging studies, and electronic medical record. I reviewed the chart documentation and discussed the patient with treatment team members. I have edited the note to reflect my clinical findings and my assessment and plan. Please note, the time of this note does not reflect the time I saw this patient today, but the time of this documentaton. Portions of this note including HPI, ROS, impression/plan, and examination may have been copied forward from admission to today as to provide important historical information essential in contributing to medical decision making. Documentation has been reviewed and edited as necessary to support clinical decision making for today's visit and to reflect my own independent evaluation of this patient. Decision making for today's visit and to reflect my own independent evaluation of this patient. [1] No past medical history on file. [2] No past surgical history on file. [3] No family history on file. [4] Social History Tobacco Use Smoking status: Never Passive exposure: Past Smokeless tobacco: Never [5] No Known Allergies [6] No current facility-administered medications on file prior to encounter. Current Outpatient Medications on File Prior to Encounter Medication Sig Dispense Refill atorvastatin (Lipitor) 40 MG tablet Take 40 mg by mouth daily. Via PEG busPIRone (Buspar) 5 MG tablet Take 5 mg by mouth 3 times daily. carvedilol (Coreg) 12.5 MG tablet Take 12.5 mg by mouth 2 times daily. Hold before dialysis FLUoxetine (PROzac) 20 MG/5ML solution Take 20 mg by mouth daily. Via PEG furosemide (Lasix) 20 MG tablet Take 20 mg by mouth daily. Via PEG, given on wed/Wednesday for weight gain insulin glargine (Lantus) 100 UNIT/ML injection Inject 25 Units under the skin 2 times daily. Insulin Lispro (Humalog) 100 UNIT/ML solution injection Inject 2-12 Units under the skin 3 times daily (with meals). Sliding scale: 150-200 = 2 units, 102-250 = 4 units, 251-300 = 6 units, 301-350 = 8 units, 351-400 = 10 units, 401-450 = 12 units midodrine (Proamatine) 10 MG tablet Take 10 mg by mouth 3 times daily. Via PEG, given M-F 1hr prior to dialysis pantoprazole (ProtoNix) 20 MG EC tablet Take 20 mg by mouth every morning (before breakfast). Do not crush, chew, or split. Petrolatum ointment Apply 1 Application topically 2 times daily as needed (forehead itching). Cosigned by Miguel Barraza DO at 06/11/2025 4:05 PM EDT Hospitalist Progress Note 06/06/2025 Subjective: Admit Date: 06/01/2025 PCP: No primary care provider on file. 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 She was admitted to hospital on ICU floor given Vent status but followed by hospital medicine, pulmonology and nephrology during stay. Size Stamper consulted for management of tube feeding = in which she take Nephro Carb steady tube feeds. During admission she required AC/VC ventilation settings and unable to tolerate weaning to PSV due to volume status, deconditioning, anemia and numerous co-morbidities, During admission, she developed C diff requiring insertion of fecal management system due to current Stage III sacral ulcer which was removed due to intolerance. Interval History: Over the past 24 hours no - stools documented on records, bump in creatinine - could be attributed to diarrhea. Patient has some redness on her tunnel catheter site - no warmth, and VS and labs unremarkable a decision was made to remove to prevent any infection and discussed with dialysis that we will remove and they will go with IR tomorrow to reinsert a new line. Will continue to monitor - no fever, chills, Call from nursing staff - nursing concern that she is more anxious with increased secretion on suction. CXR ordered and morphine given for increased anxiety related to trach and breathiung No overnight issues. Case and plan discussed with patient and bedside nurse. All questions answered. Diet, tube feeding no tray PEG; Nepro w/CARB Steady; Continuous; Yes; 10; Q 4 Hours; 25; 45 24HR INTAKE/OUTPUT: Intake/Output Summary (Last 24 hours) at 06/06/2025 0711 Last data filed at 06/05/2025 1821 Gross per 24 hour Intake 2425 ml Output 50 ml Net 2375 ml Past Medical History: Medical History[1] LABS: CBC: Recent Labs 06/04/2543106/05/2530506/06/25 0514 WBC 6.2 5.7 5.9 RBC 2.88* 2.93* 2.84* HGB 7.4* 7.6* 7.2* HCT 23.8* 24.8* 24.5* MCV 82.6 84.6 86.3 RDW 19.5* 19.4* 19.4* PLT 247 234 197 BMP: Recent Labs 06/04/2543106/05/2530506/06/25 0514 NA 130* 137 134* K 3.4* 3.9 3.7 CL 93* 100 98 CO2 26 27 26 BUN 43* 18 30* CREATININE 3.51* 1.79* 2.79* GLUCOSE 147* 67* 145* CALCIUM 9.0 8.9 9.0 ANIONGAP 11 10 10 LIVER PROFILE: Recent Labs 06/04/2543106/05/2530506/06/25 0514 AST 19 21 21 ALT 11 13 12 BILITOT 0.7 0.7 0.5 ALKPHOS 130 119 113 PROT 6.5 6.7 6.5 PT/INR: No results for input(s): "PROTIME", "INR" in the last 72 hours. CARDIAC ENZYMES: No results for input(s): "TROPONINI" in the last 72 hours. Procalcitonin: No results found for: "PROCAL" COVID-19 PCR: No results for input(s): "COVID19" in the last 72 hours. Objective: Vitals: BP (!) 111/42 [facility] [facility] 06-21-2025 Nurse Note Order to remove tunneled central venous catheter. Lab values and allergies reviewed. Order verified. Patient placed supine, and dressing removed. Line site prepared with sterile towels and antiseptic spray. Sutures removed. Breathing instructions given. Line removed on exhalation. A 6 ugandan 23 cm tunneled central venous catheter was removed from the patient's left internal jugular vein. Manual pressure was held for 5 minutes. No bleeding or hematoma noted. Sterile occlusive dressing placed. Patient tolerated the procedure well. RN updated. 1.8L removed Tolerated well Patient Name: Rosa Myers Patient : 1950 Acct: [id number] Date of Admission: 06/01/2025 Room/Bed: 222-04/222- A Code Status: Full Code Allergies: Allergies[1] Diagnosis: Problem List[2] Treatment: Hemodialysis 1:1 Priority: Routine Location: ICU Diabetic: Yes NPO: Yes Isolation Precautions: Contact Consent for Treatment Verified: Yes Blood Consent Verified: Not Applicable ICEBOAT: Identify, Consent, Equipment, HepB Status, Orders Complete, Access Verified, Timeliness Second Clinician Verifying: Leola Swartz RN Time out performed prior to access at 0934. Report Received from Primary RN at 0837. Primary RN (First Initial, Last Name, Title): Leola Swartz RN Incapacitated Nurse Education Completed: Yes HBsAg ONLY: Date Drawn: June 02, 2025 Results: Negative HBsAb: Date Drawn: June 02, 2025 Results: Susceptible <10 Order Dialyzer: Nipro Na+ Modeling: Not Applicable Dialysate Temperature (C): 36 Blood Flow Rate (BFR): 350 Dialysate Flow Rate (DFR): 600 Access to be Utilized Access: Tunneled Catheter Location: Subclavian Side: Right Needle gauge: Not Applicable + Bruit/Thrill: Not Applicable First Use X-ray Verified: Not Applicable OK to use line order: Not Applicable Site Assessment: Signs and Symptoms of Infection/Inflammation: None If yes: Not Applicable Dressing: Dry and Intact Site Prep: Medical Aseptic Technique Dressing Changed this Treatment: No If yes, by whom: NA - not changed today Date of Last Dressing Change: June 14, [address]?: Yes Red Alcohol Caps in place?: Yes Gauze Dressing?: No Non-Dialysis Use?: No Comment: Flows: Good If access problem, who was notified: Pre and Post-Assessment Patient Vitals for the past 8 hrs: Level of Consciousness Oriented X Heart Rhythm Respiratory Pattern O2 Device Bilateral Breath Sounds Skin Color Skin Condition/Temp Abdomen Inspection Bowel Sounds (All Quadrants) Edema RUE Edema LUE Edema RLE Edema LLE Edema 06/20/25 0856 -- -- -- -- -- Diminished Pale Dry;Warm Gastrostomy tube;Soft Active -- None None None None 06/20/25 0858 Alert (0) -- Regular Other (Comment) T-Piece Diminished Pale Dry;Warm Gastrostomy tube;Soft Active Other (Comment) -- -- -- -- 06/20/25 1315 Alert (0) x3 Regular Other (Comment) T-Piece Diminished Pale Dry;Warm Gastrostomy tube;Soft Active Other (Comment) -- -- -- -- Labs Lab Results Component Value Date/Time WBC 6.1 06/20/2025 0506 HGB 7.8 (L) 06/20/2025 0506 HCT 25.2 (L) 06/20/2025 0506 PLT 240 06/20/2025 0506 NA 135 (L) 06/20/2025 0506 K 3.9 06/20/2025 0506 CL 97 (L) 06/20/2025 0506 CO2 26 06/20/2025 0506 BUN 35 (H) 06/20/2025 0506 CREATININE 2.85 (H) 06/20/2025 0506 CALCIUM 9.1 06/20/2025 0506 IV Drips and Rate/Dose Continuous Meds[3] Safety - Before each treatment: Dialysis Machine No.: [id number] RO Machine Number: [id number] Dialyzer Lot No.: [id number] Tubing Lot Number: [id number] All Connections Secure: Yes Venous Parameters Set: Yes Arterial Parameters Set: Yes NS Bag: Yes Saline Line Double Clamped: Yes Dialyzer: Nipro Prime Volume (mL): 200 mL RO Machine Number: [id number] RO Machine Log Sheet Completed: Yes Machine Alarm Self Test: Completed, Passed (06/20/25931) Air Foam Detector: Tested, Proper Function, pH Reading Extracorporeal Circuit Tested for Integrity: Yes Machine Conductivity: 13.9 Manual Conductivity: 13.8 Manual Ph: 7.2 Bleach Test (Neg): Yes Bath Temperature: 36 C (96.8 F) Conductivity Meter Serial #: [id number] Machine Functioning Alarm Free? Yes Dialysis Bath: K+ (Potassium): 3 Ca+ (Calcium): 2.5 Na+ (Sodium): 137 HCO3 (Bicarb): 35 Bicarbonate Concentrate Lot No.: [id number] Acid Concentrate Lot No.: [id number] Chlorine Testing - Before each treatment and every 4 hours: Time On: 0932 Time Off: 1305 Treatment Goal: 2L Weight Height: 165.1 cm (5' 5") (06/20/25 1140) Weight: 104 kg (229 lb 0.9 oz) (06/11/25 1200) BMI (Calculated): 38.12 (06/11/25 1200) 1st check: less than 0.1 ppm at: 0904 2nd check: less than 0.1 ppm at: 1138 3rd check: Not Applicable (if greater than 0.1 ppm, then check every 30 minutes from secondary) Access Flows and Pressures Patient Vitals for the past 8 hrs: Blood Flow Rate (mL/min) Ultrafiltration Rate (ml/hr) Arterial Pressure (mmHg) Venous Pressure (mmHg) TMP DFR Access Visible Intra-Hemodialysis Comments 06/20/25 0932 350 mL/min 700 ml/hr -120 mmHg 130 mmHg 120 600 Yes tx started per policy without difficulty, no change in condition noted, LVSD 06/20/25 0945 350 mL/min 700 ml/hr -130 mmHg 140 mmHg 120 600 Yes LVSD, eyes closed, no sign of acute distress 06/20/25 1000 350 mL/min 700 ml/hr -130 mmHg 140 mmHg 120 600 Yes LVSD, eyes closed with no sign of acute distress 06/20/25 1015 350 mL/min 700 ml/hr -130 mmHg 140 mmHg 120 600 Yes LVSD, eyes closed with no sign of acute distress 06/20/25 1030 350 mL/min 700 ml/hr -130 mmHg 140 mmHg 120 600 Yes LVSD, eyes closed, no sign of acute distress 06/20/25 1045 350 mL/min 700 ml/hr -130 mmHg 140 mmHg 120 600 Yes LVSD, no sign of acute distress 06/20/25 1100 350 mL/min 700 ml/hr -130 mmHg 140 mmHg 120 600 Yes LVSD, eyes closed with no sign of acute distress 06/20/25 1115 350 mL/min 700 ml/hr -130 mmHg 140 mmHg 120 600 Yes LVSD, eyes closed with no sign of acute distress 06/20/25 1130 350 mL/min 700 ml/hr -130 mmHg 140 mmHg 110 600 Yes LVSD, eyes closed, no sign of acute distress 06/20/25 1145 350 mL/min 700 ml/hr -130 mmHg 150 mmHg 110 600 Yes LVSD, eyes closed, no sign of acute distress 06/20/25 1200 350 mL/min 700 ml/hr -130 mmHg 140 mmHg 120 600 Yes LVSD, eyes closed no sign of acute distress 06/20/25 1215 325 mL/min 700 ml/hr -120 mmHg 140 mmHg 110 600 Yes LVSD, denies needs, decreased BFR for art pressure alarming 06/20/25 1230 350 mL/min 700 ml/hr -130 mmHg 150 mmHg 110 600 Yes LVSD, denies needs, able to increase BFR 06/20/25 1245 350 mL/min 700 ml/hr -140 mmHg 160 mmHg 110 600 Yes LVSD, no sign of acute distress 06/20/25 1300 350 mL/min 700 ml/hr -130 mmHg 150 mmHg 110 600 Yes LVSD, no sign of acute distress 06/20/25 1305 350 mL/min 700 ml/hr -140 mmHg 150 mmHg 110 600 Yes LVSD, tx completed, blood rinsed back per policy, denies needs Vital Signs Patient Vitals for the past 24 hrs: BP Temp Temp src Pulse Resp SpO2 Height 06/20/25 1315 (!) 117/47 -- -- 63 -- 100 % -- 06/20/25 1305 (!) 110/48 -- -- 61 -- 100 % -- 06/20/25 1302 110/52 -- -- 61 -- 100 % -- 06/20/25 1300 -- -- -- 64 -- (!) 85 % -- 06/20/25 1245 (!) 113/44 -- -- 62 -- 100 % -- 06/20/25 1230 (!) 111/47 -- -- 60 -- 100 % -- 06/20/25 1215 123/56 -- -- 58 -- 100 % -- 06/20/25 1200 143/54 -- -- 61 -- 100 % -- 06/20/25 1145 (!) 112/42 -- -- 59 -- 100 % -- 06/20/25 1140 -- -- -- -- -- -- 1.651 m (5' 5") 06/20/25 1130 (!) 110/44 -- -- 55 -- 100 % -- 06/20/25 1115 124/51 -- -- 52 -- 100 % -- 06/20/25 1100 131/52 -- -- 57 -- 100 % -- 06/20/25 1045 116/56 -- -- 63 -- 100 % -- 06/20/25 1030 (!) 128/48 -- -- 57 -- 100 % -- 06/20/25 1015 (!) 130/48 -- -- 56 -- 100 % -- 06/20/25 1000 131/55 -- -- 59 -- 100 % -- 06/20/25 0945 135/54 -- -- 61 -- 100 % -- 06/20/25 0932 (!) 132/47 -- -- 65 -- 100 % -- 06/20/25 0900 127/56 -- -- 63 -- 100 % -- 06/20/25 0856 90/58 36.4 C (97.6 F) Axillary 69 18 100 % -- 06/20/2555 -- -- -- 65 -- 100 % -- 06/20/2525 -- -- -- 63 18 99 % -- 06/20/25 0329 -- -- -- 65 18 99 % -- 06/19/252314 -- -- -- 66 23 99 % -- 06/19/252013 -- -- -- 61 15 99 % -- 06/19/252012 123/61 36.4 C (97.6 F) Oral 61 16 99 % -- 06/19/25 1711 138/50 -- -- 64 -- -- -- 06/19/25 1446 -- -- -- 64 22 98 % -- Post-Dialysis Arterial Catheter Locking Solution: Heparin (1000units:1ml) Volume (ml): 1.7 Venous Catheter Locking Solution: Heparin (1000units:1ml) Volume (ml): 1.8 Post-Treatment Procedures: Blood returned, Catheter capped, clamped and heparinized x 2 ports Machine Disinfection Process: Exterior Machine Disinfection Rinseback Volume (mL): 200 mL Total Liters Processed (L/min): 69.2 L/min Dialyzer Clearance: Lightly streaked Heparin Amount Administered During Treatment (mL): 0 units Hemodialysis Intake (ml): 400 ml Hemodialysis Output (ml): 2200 ml NET Removed (ml): 1800 ml Tolerated Treatment: Good Interventions Taken: Ultrafiltration goal decreased Patient Response to Treatment: tolerated well Physician Notified: No Patient Disposition: Remain in ICU/ED Charge: $ IP Hemodialysis Charge: Hemodialysis Provider Notification Provider Notification Reason for Communication: Review Case (Pt last recieved dialysis 06/04.. Labs declining. Na 129, Cr 4.25, BUN 51) Provider Name: Sergio Provider Role: Hospitalist Method of Communication: Secure chat Response: Waiting for response Notification Date: 06/08/25 Notification Time: 2118 Provider Role: Hospitalist Method of Communication: Secure chat Response: Waiting for response Notification Time: 2118 Handoff complete and report given to Primary RN at 1319. Primary RN (First Initial, Last Name, Title): Leola Swartz RN Education Person Educated: Patient Knowledge Base: Minimal Barriers to Learning?: Trach with vent support Preferred method of Learning: Hands-on Topic(s): Procedural Teaching Tools: Explanation Response to Education: Verbalized Understanding and Requires Follow-up [1] No Known Allergies [2] Patient Active Problem List Diagnosis Anemia Anemia, unspecified type Moderate malnutrition (CMS/HCC) (HCC) Acute metabolic encephalopathy Anxiety and depression Debility [3] 1L removed Albumin 25g given and Decreased UF goal Tolerated well after albumin and decreased UF Patient Name: Rosa Myers Patient : 1950 Acct: [id number] Date of Admission: 06/01/2025 Room/Bed: 222-/222- A Code Status: Full Code Allergies: Allergies[1] Diagnosis: Problem List[2] Treatment: Hemodialysis 1:1 Priority: Routine Location: ICU Diabetic: Yes NPO: Yes Isolation Precautions: Contact Consent for Treatment Verified: Yes Blood Consent Verified: Not Applicable ICEBOAT: Identify, Consent, Equipment, HepB Status, Orders Complete, Access Verified, Timeliness Second Clinician Verifying: Clyde Mcduffie RN Time out performed prior to access at 0942. Report Received from Primary RN at 0847. Primary RN (First Initial, Last Name, Title): Clyde Jackman Incapacitated Nurse Education Completed: Yes HBsAg ONLY: Date Drawn: June 05, 2025 Results: Negative HBsAb: Date Drawn: June 05, 2025 Results: Susceptible <10 Order Dialyzer: Nipro Na+ Modeling: Not Applicable Dialysate Temperature (C): 36 Blood Flow Rate (BFR): 350 Dialysate Flow Rate (DFR): 600 Access to be Utilized Access: Tunneled Catheter Location: Subclavian Side: Right Needle gauge: Not Applicable + Bruit/Thrill: Not Applicable First Use X-ray Verified: Not Applicable OK to use line order: Not Applicable Site Assessment: Signs and Symptoms of Infection/Inflammation: None If yes: Not Applicable Dressing: Dry and Intact Site Prep: Medical Aseptic Technique Dressing Changed this Treatment: No If yes, by whom: NA - not changed today Date of Last Dressing Change: June 14, [address]?: Yes Red Alcohol Caps in place?: Yes Gauze Dressing?: No Non-Dialysis Use?: No Comment: Flows: Good If access problem, who was notified: Pre and Post-Assessment Patient Vitals for the past 8 hrs: Level of Consciousness Oriented X Heart Rhythm Respiratory Pattern O2 Device Bilateral Breath Sounds Skin Color Skin Condition/Temp Abdomen Inspection Bowel Sounds (All Quadrants) Edema RUE Edema LUE Edema RLE Edema LLE Edema 06/18/25 0837 -- -- -- Other (Comment) -- Clear;Diminished Pale Warm;Dry Gastrostomy tube Active -- None None None None 06/18/25 0914 Alert (0) x4 -- Other (Comment) -- Clear;Diminished Pale Warm;Dry Gastrostomy tube Active Other (Comment) -- -- -- -- 06/18/25 1353 Alert (0) x3 Regular Other (Comment) T-Piece Diminished Pale Warm;Dry Gastrostomy tube Active Other (Comment) -- -- -- -- Labs Lab Results Component Value Date/Time WBC 6.3 06/18/2025646 HGB 7.6 (L) 06/18/2025646 HCT 24.4 (L) 06/18/2025646 PLT 237 06/18/2025646 NA 133 (L) 06/18/2025646 K 4.4 06/18/2025646 CL 98 06/18/2025646 CO2 24 06/18/2025646 BUN 46 (H) 06/18/2025646 CREATININE 3.41 (H) 06/18/2025646 CALCIUM 8.9 06/18/2025646 IV Drips and Rate/Dose Continuous Meds[3] Safety - Before each treatment: Dialysis Machine No.: [id number] RO Machine Number: [id number] Dialyzer Lot No.: [id number] Tubing Lot Number: [id number] [employer] Connections Secure: Yes Venous Parameters Set: Yes Arterial Parameters Set: Yes NS Bag: Yes Saline Line Double Clamped: Yes Dialyzer: Nipro Prime Volume (mL): 200 mL RO Machine Number: [id number] RO Machine Log Sheet Completed: Yes Machine Alarm Self Test: Completed, Passed (06/18/25941) Air Foam Detector: Tested, Proper Function, pH Reading Extracorporeal Circuit Tested for Integrity: Yes Machine Conductivity: 13.9 Manual Conductivity: 14 Manual Ph: 7.2 Bleach Test (Neg): Yes Bath Temperature: 36 C (96.8 F) Conductivity Meter Serial #: [id number] Machine Functioning Alarm Free? Yes Dialysis Bath: K+ (Potassium): 3 Ca+ (Calcium): 2.5 Na+ (Sodium): 137 HCO3 (Bicarb): 35 Bicarbonate Concentrate Lot No.: [id number] Acid Concentrate Lot No.: [id number] Chlorine Testing - Before each treatment and every 4 hours: Time On: 941 Time Off: 1342 Treatment Goal: 2L Weight Height: 165.1 cm (5' 5") (06/15/25 0802) Weight: 104 kg (229 lb 0.9 oz) (06/11/25 1200) BMI (Calculated): 38.12 (06/11/25 1200) 1st check: less than 0.1 ppm at: 0907 2nd check: less than 0.1 ppm at: 1124 3rd check: Not Applicable (if greater than 0.1 ppm, then check every 30 minutes from secondary) Access Flows and Pressures Patient Vitals for the past 8 hrs: Blood Flow Rate (mL/min) Ultrafiltration Rate (ml/hr) Arterial Pressure (mmHg) Venous Pressure (mmHg) TMP DFR Access Visible Intra-Hemodialysis Comments 06/18/25 0942 350 mL/min 350 ml/hr -110 mmHg 130 mmHg 110 600 Yes tx started per policy without difficulty, started with decreased UF goal for BP, no change in condition noted, LVSD 06/18/25 1000 350 mL/min 350 ml/hr -120 mmHg 140 mmHg 110 600 Yes LVSD, watching tv, denies needs 06/18/25 1015 350 mL/min 350 ml/hr -130 mmHg 140 mmHg 110 600 Yes LVSD, eyes closed 06/18/25 1030 350 mL/min 350 ml/hr -130 mmHg 150 mmHg 110 600 Yes LVSD, watching tx, denies needs 06/18/25 1040 -- -- -- -- -- -- -- increased UF goal for albumin being given 06/18/25 1045 350 mL/min 390 ml/hr -130 mmHg 150 mmHg 110 600 Yes LVSD, watching tv, denies needs 06/18/25 1100 350 mL/min 390 ml/hr -130 mmHg 140 mmHg 100 600 Yes LVSD, watching tv 06/18/25 1115 350 mL/min 390 ml/hr -120 mmHg 140 mmHg 110 600 Yes LVSD, eyes closed, no sign of acute distress 06/18/25 1130 350 mL/min 390 ml/hr -120 mmHg 140 mmHg 110 600 Yes LVSD, eyes closed 06/18/25 1145 350 mL/min 390 ml/hr -130 mmHg 150 mmHg 100 600 Yes LVSD, watching tv, denies needs 06/18/25 1200 350 mL/min 390 ml/hr -130 mmHg 140 mmHg 110 600 Yes LVSD, eyes closed 06/18/25 1215 350 mL/min 390 ml/hr -130 mmHg 150 mmHg 110 600 Yes LVSD, watching tv 06/18/25 1230 350 mL/min 390 ml/hr -130 mmHg 150 mmHg 110 600 Yes LVSD, watching tv 06/18/25 1245 350 mL/min 390 ml/hr -130 mmHg 140 mmHg 110 600 Yes LVSD, watching tv, denies needs 06/18/25 1300 350 mL/min 390 ml/hr -130 mmHg 150 mmHg 110 600 Yes LVSD, eyes closed, no sign of acute distress 06/18/25 1315 350 mL/min 390 ml/hr -130 mmHg 150 mmHg 110 600 Yes LVSD, eyes closed, no sign of acute distress 06/18/25 1330 350 mL/min 390 ml/hr -130 mmHg 150 mmHg 110 600 Yes LVSD, watching tv, denies needs 06/18/25 1342 350 mL/min -- -130 mmHg 150 mmHg 110 600 Yes LVSD, tx completed, blood rinsed back per policy, denies needs Vital Signs Patient Vitals for the past 24 hrs: BP Temp Pulse Resp SpO2 06/18/25 1353 (!) 128/46 37 C (98.6 F) 68 21 98 % 06/18/25 1342 (!) 116/44 -- 81 -- -- 06/18/25 1330 (!) 124/43 -- 66 -- -- 06/18/25 1315 121/61 -- 65 -- -- 06/18/25 1300 118/54 -- 71 -- -- 06/18/25 1245 122/52 -- 66 -- -- 06/18/25 1230 106/50 -- 72 21 98 % 06/18/25 1215 130/53 -- 60 -- -- 06/18/25 1200 (!) 129/44 -- 63 -- -- 06/18/25 1145 (!) 122/43 -- 63 -- -- 06/18/25 1130 121/52 -- 63 -- -- 06/18/25 1115 (!) 114/42 -- 63 -- -- 06/18/25 1100 (!) 120/43 -- 80 -- -- 06/18/25 1045 (!) 107/41 -- 76 -- -- 06/18/25 1030 98/50 -- 63 -- -- 06/18/25 1015 115/50 -- 58 -- -- 06/18/25 1000 (!) 109/45 -- 59 -- -- 06/18/25 0942 (!) 113/42 -- 54 -- -- 06/18/2515 (!) 110/41 -- -- -- -- 06/18/25 0914 -- 36.8 C (98.2 F) 56 14 97 % 06/18/25 0824 -- -- -- 21 98 % 06/18/25 0503 -- -- 69 15 96 % 06/18/25 0012 -- -- 65 18 97 % 06/18/25 0002 116/50 -- -- -- -- 06/17/252332 118/65 -- -- -- -- 06/17/252330 (!) 81/58 -- -- -- -- 06/17/252004 -- -- 79 14 98 % Post-Dialysis Arterial Catheter Locking Solution: Heparin (1000units:1ml) Volume (ml): 1.7 Venous Catheter Locking Solution: Heparin (1000units:1ml) Volume (ml): 1.8 Post-Treatment Procedures: Blood returned, Catheter capped, clamped and heparinized x 2 ports Machine Disinfection Process: Exterior Machine Disinfection Rinseback Volume (mL): 200 mL Total Liters Processed (L/min): 79.5 L/min Dialyzer Clearance: Lightly streaked Heparin Amount Administered During Treatment (mL): 0 units Hemodialysis Intake (ml): 500 ml Hemodialysis Output (ml): 1500 ml NET Removed (ml): 1000 ml Tolerated Treatment: Fair Interventions Taken: Ultrafiltration goal decreased, Medication Patient Response to Treatment: stable Physician Notified: No Patient Disposition: Remain in ICU/ED Charge: $ IP Hemodialysis Charge: Hemodialysis Provider Notification Provider Notification Reason for Communication: Review Case (Pt last recieved dialysis 06/04.. Labs declining. Na 129, Cr 4.25, BUN 51) Provider Name: Sergio Provider Role: Hospitalist Method of Communication: Secure chat Response: Waiting for response Notification Date: 06/08/25 Notification Time: 2118 Provider Role: Hospitalist Method of Communication: Secure chat Response: Waiting for response Notification Time: 2118 Handoff complete and report given to Primary RN at 1356. Primary RN (First Initial, Last Name, Title): Clyde Mcduffie RN Education Person Educated: Patient Knowledge Base: Minimal Barriers to Learning?: Trach with vent support Preferred method of Learning: Hands-on Topic(s): Albumin and Procedural Teaching Tools: Explanation Response to Education: Verbalized Understanding and Requires Follow-up [1] No Known Allergies [2] Patient Active Problem List Diagnosis Anemia Anemia, unspecified type Moderate malnutrition (CMS/HCC) (HCC) Acute metabolic encephalopathy Anxiety and depression Debility [3] 614mL removed with tx Tolerated well after UF goal was decreased Patient Name: Rosa Myers Patient : 1950 Acct: [id number] Date of Admission: 06/01/2025 Room/Bed: 222/ A Code Status: Full Code Allergies: Allergies[1] Diagnosis: Problem List[2] Treatment: Hemodialysis 1:1 Priority: Routine Location: ICU Diabetic: Yes NPO: Yes Isolation Precautions: Contact Consent for Treatment Verified: Yes Blood Consent Verified: Not Applicable ICEBOAT: Identify, Consent, Equipment, HepB Status, Orders Complete, Access Verified, Timeliness Second Clinician Verifying: Leola Swartz RN Time out performed prior to access at 0907. Report Received from Primary RN at 0828. Primary RN (First Initial, Last Name, Title): Leola Swartz RN Incapacitated Nurse Education Completed: Yes HBsAg ONLY: Date Drawn: June 05, 2025 Results: Negative HBsAb: Date Drawn: June 05, 2025 Results: Susceptible <10 Order Dialyzer: Nipro Na+ Modeling: Not Applicable Dialysate Temperature (C): 36 Blood Flow Rate (BFR): 350 Dialysate Flow Rate (DFR): 600 Access to be Utilized Access: Tunneled Catheter Location: Subclavian Side: Right Needle gauge: Not Applicable + Bruit/Thrill: Not Applicable First Use X-ray Verified: Yes OK to use line order: Yes Site Assessment: Signs and Symptoms of Infection/Inflammation: None If yes: Not Applicable Dressing: Dry and Intact Site Prep: Medical Aseptic Technique Dressing Changed this Treatment: No If yes, by whom: NA - not changed today Date of Last Dressing Change: June 14, [address]?: Yes Red Alcohol Caps in place?: Yes Gauze Dressing?: No Non-Dialysis Use?: No Comment: Flows: Good If access problem, who was notified: Pre and Post-Assessment Patient Vitals for the past 8 hrs: Level of Consciousness Oriented X Heart Rhythm O2 Device Bilateral Breath Sounds Skin Color Skin Condition/Temp Abdomen Inspection Bowel Sounds (All Quadrants) Generalized Edema 06/15/25 0805 -- -- -- -- Diminished -- -- Soft -- -- 06/15/25 0836 Alert (0) -- Regular T-Piece Diminished Pale;[place] Warm;Dry Soft;Nondistended Active Other (Comment) 06/15/25 1318 Alert (0) x2 Regular T-Piece Diminished Pale;[place] Warm;Dry Soft;Nondistended Active Other (Comment) Labs Lab Results Component Value Date/Time WBC 6.1 06/15/2025224 HGB 7.9 (L) 06/15/2025224 HCT 25.7 (L) 06/15/2025224 PLT 233 06/15/2025224 NA 134 (L) 06/15/2025224 K 3.4 (L) 06/15/2025224 CL 97 (L) 06/15/2025224 CO2 25 06/15/2025224 BUN 31 (H) 06/15/2025224 CREATININE 2.80 (H) 06/15/2025224 CALCIUM 8.8 06/15/2025224 IV Drips and Rate/Dose Continuous Meds[3] Safety - Before each treatment: Dialysis Machine No.: [id number] RO Machine Number: [id number] Dialyzer Lot No.: [id number] Tubing Lot Number: [id number] [employer] Secure: Yes Venous Parameters Set: Yes Arterial Parameters Set: Yes NS Bag: Yes Saline Line Double Clamped: Yes Dialyzer: Nipro Prime Volume (mL): 200 mL RO Machine Number: [id number] RO Machine Log Sheet Completed: Yes Machine Alarm Self Test: Completed, Passed (06/15/25906) Air Foam Detector: Tested, Proper Function, pH Reading Extracorporeal Circuit Tested for Integrity: Yes Machine Conductivity: 13.6 Manual Conductivity: 13.8 Manual Ph: 7.5 Bleach Test (Neg): Yes Bath Temperature: 36 C (96.8 F) Conductivity Meter Serial #: [id number] Machine Functioning Alarm Free? Yes Dialysis Bath: K+ (Potassium): 3 Ca+ (Calcium): 2.5 Na+ (Sodium): 137 HCO3 (Bicarb): 35 Bicarbonate Concentrate Lot No.: [id number] Acid Concentrate Lot No.: [id number] Chlorine Testing - Before each treatment and every 4 hours: Time On: 0907 Time Off: 1307 Treatment Goal: 2L Weight Height: 165.1 cm (5' 5") (06/15/25 0802) Weight: 104 kg (229 lb 0.9 oz) (06/11/25 1200) BMI (Calculated): 38.12 (06/11/25 1200) 1st check: less than 0.1 ppm at: 0845 2nd check: less than 0.1 ppm at: 1111 3rd check: Not Applicable (if greater than 0.1 ppm, then check every 30 minutes from secondary) Access Flows and Pressures Patient Vitals for the past 8 hrs: Blood Flow Rate (mL/min) Arterial Pressure (mmHg) Venous Pressure (mmHg) TMP DFR Access Visible Intra-Hemodialysis Comments 06/15/25 0907 350 mL/min -110 mmHg 120 mmHg 110 600 Yes tx started per policy without difficulty, no change in condition noted, denies needs, LVSD 06/15/25 0915 350 mL/min -120 mmHg 130 mmHg 110 600 Yes LVSD, watching tv, no sign of acute distress 06/15/25 0930 350 mL/min -130 mmHg 140 mmHg 110 600 Yes LVSD, watching tv, no sign of acute distress 06/15/25 0945 350 mL/min -130 mmHg 140 mmHg 110 600 Yes LVSD, watching tv, denies needs 06/15/25 1000 350 mL/min -130 mmHg 140 mmHg 110 600 Yes LVSD, watching tv, no sign of acute distress 06/15/25 1015 350 mL/min -130 mmHg 140 mmHg 110 600 Yes LVSD, eyes closed, no sign of acute distress 06/15/25 1030 350 mL/min -130 mmHg 140 mmHg 110 600 Yes LVSD, watching tv 06/15/25 1045 350 mL/min -130 mmHg 140 mmHg 110 600 Yes LVSD, watching tv, Clyde Singh [employer] at bedside 06/15/25 1100 350 mL/min -130 mmHg 140 mmHg 110 600 Yes LVSD, eyes closed 06/15/25 1115 350 mL/min -130 mmHg 140 mmHg 110 600 Yes LVSD, watching tv, no sign of acute distress 06/15/25 1130 350 mL/min -130 mmHg 140 mmHg 110 600 Yes LVSD, watching tv, denies needs, decreased UF goal 06/15/25 1145 350 mL/min -130 mmHg 140 mmHg 110 600 Yes LVSD, watching tv 06/15/25 1200 350 mL/min -130 mmHg 140 mmHg 100 600 Yes LVSD, watching tv 06/15/25 1215 350 mL/min -130 mmHg 140 mmHg 100 600 Yes LVSD, eyes closed 06/15/25 1218 -- -- -- -- -- -- stopped UF at this time, denied needs 06/15/25 1219 -- -- -- -- -- -- recheck BP 06/15/25 1230 350 mL/min -130 mmHg 140 mmHg 100 600 Yes LVSD, denies needs 06/15/25 1245 350 mL/min -130 mmHg 140 mmHg 100 600 Yes LVSD, no sign of acute distress 06/15/25 1300 350 mL/min -130 mmHg 140 mmHg 100 600 Yes LVSD, watching tv 06/15/25 1307 350 mL/min -130 mmHg 140 mmHg 100 600 Yes LVSD, tx completed, blood rinsed back per policy without difficulty, no sign of acute distress Vital Signs Patient Vitals for the past 24 hrs: BP Temp Temp src Pulse Resp SpO2 Height 06/15/25 1318 (!) 117/43 -- -- 88 -- (!) 83 % -- 06/15/25 1307 110/55 -- -- 65 -- 100 % -- 06/15/25 1300 (!) 118/45 -- -- 62 -- 100 % -- 06/15/25 1245 110/55 -- -- 68 -- 100 % -- 06/15/25 1230 (!) 119/36 -- -- 66 -- 100 % -- 06/15/25 1219 114/50 -- -- 65 -- 100 % -- 06/15/25 1218 (!) 101/35 -- -- 64 -- 100 % -- 06/15/25 1215 -- -- -- 68 -- 100 % -- 06/15/25 1204 (!) 110/40 -- -- 60 -- 100 % -- 06/15/25 1200 -- -- -- 60 -- 100 % -- 06/15/25 1145 120/54 -- -- 70 -- 100 % -- 06/15/25 1140 -- -- -- 68 15 100 % -- 06/15/25 1130 (!) 107/37 -- -- 63 -- 100 % -- 06/15/25 1115 112/63 -- -- 63 -- 100 % -- 06/15/25 1100 115/64 -- -- 61 -- 100 % -- 06/15/25 1045 106/56 -- -- 62 -- 100 % -- 06/15/25 1033 113/63 -- -- 62 -- 100 % -- 06/15/25 1030 -- -- -- 68 -- 100 % -- 06/15/25 1015 123/56 -- -- 61 -- 100 % -- 06/15/25 1000 106/51 -- -- 67 -- 100 % -- 06/15/25 0945 (!) 119/44 -- -- 69 -- 100 % -- 06/15/25 0930 (!) 111/46 -- -- 69 -- 100 % -- 06/15/25 0915 124/58 -- -- 70 -- 100 % -- 06/15/25 0907 104/50 -- -- 70 -- 100 % -- 06/15/25 0836 (!) 110/45 -- -- 78 -- 100 % -- 06/15/25 0805 -- 36.8 C (98.3 F) Oral 74 -- 100 % -- 06/15/25 0802 -- -- -- -- -- -- 1.651 m (5' 5") 06/15/25 0735 -- -- -- 74 22 100 % -- 06/15/25324 -- -- -- 75 (!) 28 100 % -- 06/15/25321 -- -- -- 75 23 100 % -- 06/14/252302 -- -- -- 68 (!) 32 100 % -- 06/14/252257 -- -- -- 68 18 100 % -- 09/18/25 2134 (!) 119/46 -- -- 70 -- 100 % -- 06/14/25 2100 -- -- -- 72 16 100 % -- 06/14/251958 -- -- -- 66 17 100 % -- 06/14/251957 -- -- -- 63 17 100 % -- 06/14/251950 -- -- -- 64 17 100 % -- 06/14/25 1825 -- -- -- 64 -- 100 % -- 06/14/25 1600 (!) 134/48 -- -- -- -- 100 % -- 06/14/25 1551 -- -- -- 67 15 100 % -- 06/14/25 1420 -- -- -- 69 17 100 % -- 06/14/25 1415 156/74 -- -- 69 17 100 % -- 06/14/25 1410 -- -- -- 66 16 100 % -- 06/14/25 1405 -- -- -- 72 25 100 % -- 06/14/25 1400 143/66 -- -- 67 17 100 % -- 06/14/25 1355 -- -- -- 67 17 100 % -- Post-Dialysis Arterial Catheter Locking Solution: Heparin (1000units:1ml) Volume (ml): 1.7 Venous Catheter Locking Solution: Heparin (1000units:1ml) Volume (ml): 1.8 Post-Treatment Procedures: Blood returned, Catheter capped, clamped and heparinized x 2 ports Machine Disinfection Process: Exterior Machine Disinfection Rinseback Volume (mL): 200 mL Total Liters Processed (L/min): 79.2 L/min Dialyzer Clearance: Clear Heparin Amount Administered During Treatment (mL): 0 units Hemodialysis Intake (ml): 400 ml Hemodialysis Output (ml): 1014 ml NET Removed (ml): 614 ml Tolerated Treatment: Good (with decreased UF goal) Interventions Taken: Ultrafiltration goal decreased Patient Response to Treatment: tolerated well Physician Notified: No Patient Disposition: Remain in ICU/ED Charge: $ IP Hemodialysis Charge: Hemodialysis Provider Notification Provider Notification Reason for Communication: Review Case (Pt last recieved dialysis 06/04.. Labs declining. Na 129, Cr 4.25, BUN 51) Provider Name: Sergio Provider Role: Hospitalist Method of Communication: Secure chat Response: Waiting for response Notification Date: 06/08/25 Notification Time: 2118 Provider Role: Hospitalist Method of Communication: Secure chat Response: Waiting for response Notification Time: 2118 Handoff complete and report given to Primary RN at 1319. Primary RN (First Initial, Last Name, Title): Leola Swartz RN Education Person Educated: Patient Knowledge Base: Minimal Barriers to Learning?: trach with vent support Preferred method of Learning: Hands-on Topic(s): Albumin, Procedural, and Medications Teaching Tools: Explanation Response to Education: Verbalized Understanding and Requires Follow-up [1] No Known Allergies [2] Patient Active Problem List Diagnosis Anemia Anemia, unspecified type Moderate malnutrition (CMS/HCC) (HCC) Acute metabolic encephalopathy Anxiety and depression Debility [3] Pt tolerated procedure well. Tunneled central line placed. Transfer pt to ICU. IR Procedures: Rosa is here from ICU for a tunneled central line placement. History, allergies, medications and lab results reviewed. Informed consent has been signed. Pt is on a monitor. Patient ready for the procedure. Patient is getting more confuse, hallucinating and seeing bugs on ceiling. Patient pulled out peripheral IV line, and pulled off HD line dressing. New HD dressing applied and new peripheral IV line place. Patient's gown was pull up and and cover the HD line so patient don't see it. And Kerlix cover patient's peripheral IV. Patient Name: Rosa Myers Patient : 1950 Acct: [id number] Date of Admission: 06/01/2025 Room/Bed: 222-04/222-04 A Code Status: Full Code Allergies: Allergies[1] Diagnosis: Problem List[2] Treatment: Hemodialysis 1:1 Priority: Routine Location: ICU Diabetic: Yes NPO: Yes peg tube Isolation Precautions: Contact Consent for Treatment Verified: Yes Blood Consent Verified: Not Applicable ICEBOAT: Identify, Consent, Equipment, HepB Status, Orders Complete, Access Verified, Timeliness Second Clinician Verifying: Vick Rausch RN Time out performed prior to access at 1123. Report Received from Primary RN at 1100. Primary RN (First Initial, Last Name, Title): Vick Rausch RN Incapacitated Nurse Education Completed: Yes HBsAg ONLY: Date Drawn: June 02, 2025 Results: Negative HBsAb: Date Drawn: June 02, 2025 Results: Susceptible <10 Order Dialyzer: Nipro Na+ Modeling: Not Applicable Dialysate Temperature (C): 36 Blood Flow Rate (BFR): 400 Dialysate Flow Rate (DFR): 600 Access to be Utilized Access: Tunneled Catheter Location: Subclavian Side: Right Needle gauge: Not Applicable + Bruit/Thrill: Not Applicable First Use X-ray Verified: Yes OK to use line order: Yes Site Assessment: Signs and Symptoms of Infection/Inflammation: None If yes: Not Applicable Dressing: Dry and Intact Site Prep: Medical Aseptic Technique Dressing Changed this Treatment: No If yes, by whom: NA - not changed today Date of Last Dressing Change: June 12, [address]?: Yes Red Alcohol Caps in place?: Yes Gauze Dressing?: No Non-Dialysis Use?: No Comment: pt alert and educated on reason for tx Flows: Good and Patent If access problem, who was notified: Pre and Post-Assessment Patient Vitals for the past 8 hrs: Level of Consciousness Oriented X Heart Rhythm Respiratory Pattern O2 Device Bilateral Breath Sounds Skin Color Skin Condition/Temp Abdomen Inspection Bowel Sounds (All Quadrants) Edema Generalized Edema 06/13/25 1111 Alert (0) REJI Regular Other (Comment) T-Piece Diminished [place] Warm;Dry Soft Active Generalized Non-pitting 06/13/25 1115 -- -- -- -- -- -- -- -- -- Active Generalized Non-pitting 06/13/25 1536 Alert (0) REJI Regular -- T-Piece -- [place] Warm;Dry Soft Active Generalized Non-pitting Labs Lab Results Component Value Date/Time WBC 7.2 06/13/2025432 HGB 8.4 (L) 06/13/2025432 HCT 26.6 (L) 06/13/2025432 PLT 235 06/13/2025432 NA 134 (L) 06/13/2025432 K 3.5 06/13/2025432 CL 97 (L) 06/13/2025432 CO2 25 06/13/2025432 BUN 39 (H) 06/13/2025432 CREATININE 3.37 (H) 06/13/2025432 CALCIUM 9.3 06/13/2025432 IV Drips and Rate/Dose Continuous Meds[3] Safety - Before each treatment: Dialysis Machine No.: [id number] RO Machine Number: [id number] Dialyzer Lot No.: [id number] Tubing Lot Number: [id number] All Connections Secure: Yes Venous Parameters Set: Yes Arterial Parameters Set: Yes NS Bag: Yes Saline Line Double Clamped: Yes Dialyzer: Nipro Prime Volume (mL): 200 mL RO Machine Number: [id number] RO Machine Log Sheet Completed: Yes Machine Alarm Self Test: Completed, Passed (1114) (06/13/25 111) Air Foam Detector: Tested, pH Reading, Proper Function Extracorporeal Circuit Tested for Integrity: Yes Machine Conductivity: 13.9 Manual Conductivity: 13.8 Manual Ph: 7.2 Bleach Test (Neg): Yes Bath Temperature: 36 C (96.8 F) Conductivity Meter Serial #: [id number] Machine Functioning Alarm Free? Yes Dialysis Bath: K+ (Potassium): 3 Ca+ (Calcium): 2.5 Na+ (Sodium): 137 HCO3 (Bicarb): 35 Bicarbonate Concentrate Lot No.: [id number] Acid Concentrate Lot No.: [id number] Chlorine Testing - Before each treatment and every 4 hours: Time On: 1125 Time Off: 1525 Treatment Goal: 2 Weight Height: 165.1 cm (5' 5") (06/11/25 1202) Weight: 104 kg (229 lb 0.9 oz) (06/11/25 1200) BMI (Calculated): 38.12 (06/11/25 1200) 1st check: less than 0.1 ppm at: 1105 2nd check: less than 0.1 ppm at: 1400 3rd check: Not Applicable (if greater than 0.1 ppm, then check every 30 minutes from secondary) Access Flows and Pressures Patient Vitals for the past 8 hrs: Blood Flow Rate (mL/min) Ultrafiltration Rate (ml/hr) Arterial Pressure (mmHg) Venous Pressure (mmHg) TMP DFR Access Visible Intra-Hemodialysis Comments 06/13/25 1125 200 mL/min 630 ml/hr -50 mmHg 60 mmHg 80 600 Yes tx initiated, pt alert 06/13/25 1130 400 mL/min 630 ml/hr -130 mmHg 150 mmHg 80 600 Yes bfr increased, nurse staff industrial at bedside for meds 06/13/25 1145 400 mL/min 630 ml/hr -130 mmHg 160 mmHg 80 600 Yes pt alert 06/13/25 1200 400 mL/min 630 ml/hr -150 mmHg 160 mmHg 70 600 Yes pt stable, lines secure 06/13/25 1215 400 mL/min 630 ml/hr -150 mmHg 170 mmHg 70 600 Yes pt stable, lines secure 06/13/25 1230 400 mL/min 630 ml/hr -150 mmHg 160 mmHg 70 600 Yes jug changed, ph and conduct wnl 06/13/25 1245 400 mL/min 630 ml/hr -150 mmHg 160 mmHg 70 600 Yes provider at bedside to speak with patient, pt alert 06/13/25 1300 400 mL/min 630 ml/hr -150 mmHg 170 mmHg 70 600 Yes nurse staff industrial at bedside for routine glucose check 06/13/25 1315 400 mL/min 630 ml/hr -150 mmHg 170 mmHg 70 600 Yes pt stable, lines secure, jugs changed, conduct and ph wnl 06/13/25 1330 400 mL/min 630 ml/hr -150 mmHg 170 mmHg 70 600 Yes pt tolerating tx 06/13/25 1345 400 mL/min 630 ml/hr -160 mmHg 160 mmHg 70 600 Yes pt resting, resps wnl 06/13/25 1400 400 mL/min 630 ml/hr -160 mmHg 160 mmHg 70 600 Yes pt stable, lines secure 06/13/25 1415 400 mL/min 630 ml/hr -160 mmHg 160 mmHg 70 600 Yes pt resting, resps wnl 06/13/25 1430 400 mL/min 630 ml/hr -160 mmHg 170 mmHg 70 600 Yes pt stable, lines secure 06/13/25 1445 400 mL/min 640 ml/hr -160 mmHg 160 mmHg 70 600 Yes pt stable, lines secure 06/13/25 1500 400 mL/min 640 ml/hr -160 mmHg 170 mmHg 70 600 Yes pt resting, resps wnl 06/13/25 1515 400 mL/min 640 ml/hr -160 mmHg 170 mmHg 70 600 Yes pt stable, lines secure 06/13/25 1525 400 mL/min 640 ml/hr -160 mmHg 170 mmHg 70 600 Yes tx complete, blood returned Vital Signs Patient Vitals for the past 24 hrs: BP Temp Temp src Pulse Resp SpO2 06/13/25 1536 (!) 115/45 -- -- 62 -- 100 % 06/13/25 1525 (!) 116/41 -- -- 67 -- -- 06/13/25 1515 (!) 106/43 -- -- 65 -- -- 06/13/25 1500 109/61 -- -- 62 -- -- 06/13/25 1445 (!) 112/47 -- -- 62 -- -- 06/13/25 1430 (!) 106/48 -- -- 68 -- -- 06/13/25 1415 102/50 -- -- 63 -- -- 06/13/25 1400 105/50 -- -- 54 -- -- 06/13/25 1345 (!) 111/46 -- -- 62 -- -- 06/13/25 1330 114/50 -- -- 93 -- -- 06/13/25 1315 (!) 126/49 -- -- 63 -- -- 06/13/25 1300 (!) 120/45 -- -- 62 -- -- 06/13/25 1245 119/52 -- -- 76 -- -- 06/13/25 1232 124/56 -- -- 94 -- 99 % 06/13/25 1230 124/56 -- -- 81 -- -- 06/13/25 1217 (!) 117/42 -- -- 54 -- 100 % 06/13/25 1215 (!) 117/42 -- -- 57 -- -- 06/13/25 1203 (!) 115/44 -- -- 57 -- 100 % 06/13/25 1200 (!) 115/44 -- -- 57 -- -- 06/13/25 1148 (!) 102/43 -- -- 63 -- 100 % 06/13/25 1145 (!) 102/43 -- -- 60 -- 100 % 06/13/25 1132 (!) 118/45 -- -- 61 -- 100 % 06/13/25 1130 (!) 118/45 -- -- 63 -- 100 % 06/13/25 1129 (!) 117/41 -- -- 60 -- 100 % 06/13/25 1125 (!) 117/41 -- -- 68 -- 100 % 06/13/25 1119 (!) 10748 36.7 C (98.1 F) Oral 62 20 99 % 06/13/25 1111 (!) 107/48 -- -- 65 (!) 26 100 % 06/13/25 1058 97/70 -- -- -- -- -- 06/13/25 1014 -- -- -- 62 -- 100 % 06/13/25 1008 -- -- -- -- -- 100 % 06/13/25 0955 -- -- -- -- -- 100 % 06/13/25 0424 -- -- -- 69 22 100 % 06/13/25 0403 -- -- -- 74 -- 100 % 06/13/252 137/91 -- -- -- -- -- 06/13/25 0003 127/96 -- -- 78 -- 98 % 06/12/252236 -- -- -- 72 (!) 30 91 % 06/12/252019 -- -- -- 64 17 99 % 06/12/252011 -- -- -- 64 22 100 % 06/12/252002 118/51 36.8 C (98.2 F) Oral 66 24 100 % 06/12/25 1644 -- -- -- 61 -- 96 % 06/12/25 1643 -- -- -- 61 16 94 % Post-Dialysis Arterial Catheter Locking Solution: Heparin (1000units:1ml) Volume (ml): 1.7 Venous Catheter Locking Solution: Heparin (1000units:1ml) Volume (ml): 1.8 Post-Treatment Procedures: Blood returned, Catheter capped, clamped and heparinized x 2 ports Machine Disinfection Process: Acid/Vinegar Clean, Heat Disinfect, Exterior Machine Disinfection Rinseback Volume (mL): 300 mL Total Liters Processed (L/min): 88.3 L/min Dialyzer Clearance: Lightly streaked Heparin Amount Administered During Treatment (mL): 0 units Hemodialysis Intake (ml): 500 ml Hemodialysis Output (ml): 2500 ml NET Removed (ml): 2000 ml Tolerated Treatment: Good Interventions Taken: Ultrafiltration goal decreased Patient Response to Treatment: stable Physician Notified: No Patient Disposition: Remain in ICU/ED Charge: $ IP Hemodialysis Charge: Hemodialysis Provider Notification Provider Notification Reason for Communication: Review Case (Pt last recieved dialysis 06/04.. Labs declining. Na 129, Cr 4.25, BUN 51) Provider Name: Sergio Provider Role: Hospitalist Method of Communication: Secure chat Response: Waiting for response Notification Date: 06/08/25 Notification Time: 2118 Provider Role: Hospitalist Method of Communication: Secure chat Response: Waiting for response Notification Time: 2118 Handoff complete and report given to Primary RN at 1540. Primary RN (First Initial, Last Name, Title): Vick Garcia RN Education Person Educated: Patient Knowledge Base: REJI Barriers to Learning?: Yes, including vent pt, REJI Preferred method of Learning: Oral Topic(s): Procedural Teaching Tools: Explanation Response to Education: Requires Follow-up [1] No Known Allergies [2] Patient Active Problem List Diagnosis Anemia Anemia, unspecified type Moderate malnutrition (CMS/HCC) (HCC) [3] Wound Care follow up visit for Pressure Injury Prevention. Pt's Tyler score= 14 on 06/12 Pt's pressure points assessed. Pt with trach/vent. Pt's Right heel, Elbows, Occiput and ears all intact. [place] and blanchable tissues noted to right heel. 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 For the above wound assessment and treatment plan, please see Wound/Ostomy FULL STACK DEVELOPER progress notes. Prevention Measures in place, including: [place] sheet with pillows/wedges, Foam heel protector (obtained and applied to right heel), Heels elevated off bed on pillows, Zinc/Moisture Barrier ointment (ET mix also at bedside), Waffle chair cushion (obtain if out of bed). Skin Care precaution order set in place. Will continue to follow pt. Please secure chat for any questions or concerns. Yany Thomason RN 22:36 hr Client observed to be triggering ventilator for high expiratory volumes, patient assessed, morphine given for client's pain and SOB, no wheezing heard. Client also received a breathing treatment as well from respiratory therapy. 22:58 hr Client continued to be tachypnec without desaturations, tracheal suction done with scant secretions observed, on-call hospitalist informed and an order for ativan was received, medication given after. Pt tolerated procedure well. Will transfer back to ns unit. Patient arrived from 222 on vent to [facility], verbal consent was obtained. Patient was placed supine on exam table prepped and draped in sterile fashion. Telemetry monitors placed, vitals monitored. 1.6L removed with tx, UF goal decreased due to BP trending downward Overall tolerated well No s/s of infection with dressing change Patient Name: Rosa Myers Patient : 1950 Acct: [id number] Date of Admission: 06/01/2025 Room/Bed: / A Code Status: Full Code Allergies: Allergies[1] Diagnosis: Problem List[2] Treatment: Hemodialysis 1:1 Priority: Routine Location: ICU Diabetic: Yes NPO: Yes Isolation Precautions: Contact Consent for Treatment Verified: Yes Blood Consent Verified: Not Applicable ICEBOAT: Identify, Consent, Equipment, HepB Status, Orders Complete, Access Verified, Timeliness Second Clinician Verifying: Thalia Amaro RN Time out performed prior to access at 1005. Report Received from Primary RN at 0904. Primary RN (First Initial, Last Name, Title): Thalia Amaro RN Incapacitated Nurse Education Completed: Yes HBsAg ONLY: Date Drawn: June 05, 2025 Results: Negative HBsAb: Date Drawn: June 05, 2025 Results: Susceptible <10 Order Dialyzer: Nipro Na+ Modeling: Not Applicable Dialysate Temperature (C): 36 Blood Flow Rate (BFR): 350 Dialysate Flow Rate (DFR): 600 Access to be Utilized Access: Non-tunneled Catheter Location: Internal Jugular Side: Right Needle gauge: Not Applicable + Bruit/Thrill: Not Applicable First Use X-ray Verified: Not Applicable OK to use line order: Not Applicable Site Assessment: Signs and Symptoms of Infection/Inflammation: None If yes: Not Applicable Dressing: Dry, not intact Site Prep: Medical Aseptic Technique Dressing Changed this Treatment: Yes If yes, by whom: Carl MICHELE Date of Last Dressing Change: June 08, [address]?: Yes Red Alcohol Caps in place?: Yes Gauze Dressing?: No Non-Dialysis Use?: No Comment: Flows: Lines Reversed If access problem, who was notified: Pre and Post-Assessment Patient Vitals for the past 8 hrs: Level of Consciousness Heart Rhythm Respiratory Pattern O2 Device Bilateral Breath Sounds Skin Color Skin Condition/Temp Abdomen Inspection Bowel Sounds (All Quadrants) RUE Edema LUE Edema RLE Edema LLE Edema 06/11/25 0750 -- -- -- -- Rhonchi -- -- -- -- -- -- -- -- 06/11/25 0939 Alert (0) Regular Other (Comment) T-Piece Rhonchi Pale Warm;Dry Soft;Rounded Active None None None None 06/11/25 1417 Alert (0) Regular Other (Comment) T-Piece Rhonchi Pale Warm;Dry Soft;Rounded Active None None None None Labs Lab Results Component Value Date/Time WBC 7.4 06/11/2025551 HGB 8.3 (L) 06/11/2025551 HCT 25.8 (L) 06/11/2025551 PLT 235 06/11/2025551 NA 132 (L) 06/11/2025551 K 3.9 06/11/2025551 CL 99 06/11/2025551 CO2 22 (L) 06/11/2025551 BUN 49 (H) 06/11/2025551 CREATININE 4.10 (H) 06/11/2025551 CALCIUM 9.2 06/11/2025551 IV Drips and Rate/Dose Continuous Meds[3] Safety - Before each treatment: Dialysis Machine No.: [id number] RO Machine Number: [id number] Dialyzer Lot No.: [id number] Tubing Lot Number: [id number] All Connections Secure: Yes Venous Parameters Set: Yes Arterial Parameters Set: Yes NS Bag: Yes Saline Line Double Clamped: Yes Dialyzer: Nipro Prime Volume (mL): 200 mL RO Machine Number: [id number] RO Machine Log Sheet Completed: Yes Machine Alarm Self Test: Completed, Passed (06/11/25 1005) Air Foam Detector: Tested, Proper Function, pH Reading Extracorporeal Circuit Tested for Integrity: Yes Machine Conductivity: 13.8 Manual Conductivity: 13.8 Manual Ph: 7.5 Bleach Test (Neg): Yes Bath Temperature: 36 C (96.8 F) Conductivity Meter Serial #: [id number] Machine Functioning Alarm Free? Yes Dialysis Bath: K+ (Potassium): 3 Ca+ (Calcium): 2.5 Na+ (Sodium): 137 HCO3 (Bicarb): 35 Bicarbonate Concentrate Lot No.: [id number] Acid Concentrate Lot No.: [id number] Chlorine Testing - Before each treatment and every 4 hours: Time On: 1005 Time Off: 1405 Treatment Goal: 2L Weight Height: 165.1 cm (5' 5") (06/11/25 1202) Weight: 104 kg (229 lb 0.9 oz) (06/11/25 1200) BMI (Calculated): 38.12 (06/11/25 1200) 1st check: less than 0.1 ppm at: 0934 2nd check: less than 0.1 ppm at: 1302 3rd check: Not Applicable (if greater than 0.1 ppm, then check every 30 minutes from secondary) Access Flows and Pressures Patient Vitals for the past 8 hrs: Blood Flow Rate (mL/min) Ultrafiltration Rate (ml/hr) Arterial Pressure (mmHg) Venous Pressure (mmHg) TMP DFR Access Visible Intra-Hemodialysis Comments 06/11/25 1005 350 mL/min 610 ml/hr -60 mmHg 180 mmHg 100 600 Yes tx started per policy with lines reversed due to very sluggish art port aspiration, no change in condition noted, LVSD 06/11/25 1015 350 mL/min 610 ml/hr -60 mmHg 150 mmHg 110 600 Yes LVSD, no sign of acute distress 06/11/25 1030 350 mL/min 610 ml/hr -60 mmHg 150 mmHg 110 600 Yes LVSD, watching tv, no sign of acute distress 06/11/25 1045 350 mL/min 610 ml/hr -60 mmHg 120 mmHg 110 600 Yes LVSD, Clyde Singh METALLURGIST HELPER at bedside, no sign of acute distress 06/11/25 1100 350 mL/min 610 ml/hr -60 mmHg 110 mmHg 110 600 Yes LVSD, no sign of acute distredss 06/11/25 1103 -- -- -- -- -- -- -- adjusted BP cuff, rechecking BP 06/11/25 1115 350 mL/min 610 ml/hr -60 mmHg 110 mmHg 110 600 Yes LVSD, denies needs 06/11/25 1118 -- -- -- -- -- -- -- decreased UF goal for BP 06/11/25 1130 350 mL/min 460 ml/hr -60 mmHg 170 mmHg 70 600 Yes LVSD, watching tv, denies needs 06/11/25 1145 350 mL/min 460 ml/hr -60 mmHg 150 mmHg 110 600 Yes LVSD, watching tv, no sign of acute distress 06/11/25 1200 350 mL/min 460 ml/hr -60 mmHg 150 mmHg 110 600 Yes LVSD, no sign of acute distress 06/11/25 1215 350 mL/min 460 ml/hr -60 mmHg 140 mmHg 110 600 Yes LVSD, no sign of acute distress 06/11/25 1230 350 mL/min 460 ml/hr -60 mmHg 130 mmHg 110 600 Yes LVSD, watching tv, denies needs 06/11/25 1245 350 mL/min 460 ml/hr -60 mmHg 140 mmHg 110 600 Yes LVSD, no sign of acute distress 06/11/25 1300 350 mL/min 460 ml/hr -60 mmHg 140 mmHg 110 600 Yes LVSD, no sign of acute distress 06/11/25 1315 350 mL/min 460 ml/hr -60 mmHg 140 mmHg 110 600 Yes LVSD, no sign of acute distress 06/11/25 1330 350 mL/min 460 ml/hr -60 mmHg 120 mmHg 100 600 Yes LVSD, no sign of acute distress 06/11/25 1345 350 mL/min 460 ml/hr -60 mmHg 130 mmHg 110 600 Yes LVSD, no sign of acute distress 06/11/25 1400 350 mL/min 460 ml/hr -60 mmHg 140 mmHg 110 600 Yes LVSD, no sign of acute distress 06/11/25 1405 350 mL/min -- -60 mmHg 150 mmHg 110 600 Yes LVSD, tx completed, blood rinsed back per policy without difficulty, no sign of acute distress Vital Signs Patient Vitals for the past 24 hrs: BP Temp Temp src Pulse Resp SpO2 Height Weight 06/11/25 1417 (!) 122/48 -- -- 69 -- 100 % -- -- 06/11/25 1407 (!) 127/48 -- -- 68 -- 99 % -- -- 06/11/25 1405 -- -- -- 72 -- 99 % -- -- 06/11/25 1400 (!) 128/49 -- -- 71 -- 100 % -- -- 06/11/25 1348 (!) 145/134 -- -- 68 -- 100 % -- -- 06/11/25 1345 -- -- -- 66 -- 99 % -- -- 06/11/25 1332 127/86 -- -- 65 -- 100 % -- -- 06/11/25 1330 -- -- -- 70 -- 100 % -- -- 06/11/25 1318 (!) 121/44 -- -- 68 -- 100 % -- -- 06/11/25 1315 -- -- -- 64 -- 99 % -- -- 06/11/25 1302 124/74 -- -- 66 -- 100 % -- -- 06/11/25 1300 -- -- -- 68 -- 99 % -- -- 06/11/25 1246 128/52 -- -- 68 -- 100 % -- -- 06/11/25 1245 -- -- -- 66 -- 100 % -- -- 06/11/25 1230 (!) 102/49 -- -- 68 -- 99 % -- -- 06/11/25 1218 104/64 -- -- 68 -- 99 % -- -- 06/11/25 1215 -- -- -- 67 -- 99 % -- -- 06/11/25 1202 133/55 -- -- 63 -- 100 % 1.651 m (5' 5") -- 06/11/25 1200 -- -- -- 67 -- 100 % 1.651 m (5' 5") 104 kg (229 lb 0.9 oz) 06/11/25 1145 (!) 120/40 -- -- 64 -- 99 % -- -- 06/11/25 1139 -- -- -- 62 -- 99 % -- -- 06/11/25 1133 103/51 -- -- 62 -- 100 % -- -- 06/11/25 1130 -- -- -- 63 -- 100 % -- -- 06/11/25 1118 101/63 -- -- 63 -- 99 % -- -- 06/11/25 1115 -- -- -- 65 -- 99 % -- -- 06/11/25 1107 130/57 -- -- 63 -- 99 % -- -- 06/11/25 1103 93/57 -- -- 67 -- 100 % -- -- 06/11/25 1100 -- -- -- 68 -- 99 % -- -- 06/11/25 1045 (!) 122/49 -- -- 62 -- 99 % -- -- 06/11/25 1031 132/60 -- -- 65 -- 99 % -- -- 06/11/25 1030 -- -- -- 66 -- 99 % -- -- 06/11/25 1015 150/56 -- -- 67 -- 100 % -- -- 06/11/25 1005 132/59 -- -- 63 -- 99 % -- -- 06/11/25 0939 -- 37.1 C (98.7 F) -- -- -- -- -- -- 06/11/25 0932 148/59 -- -- 65 -- 99 % -- -- 06/11/25 0847 -- -- -- 64 21 100 % -- -- 06/11/25 0846 (!) 138/46 -- -- 64 -- -- -- -- 06/11/25 0802 (!) 138/46 -- -- 65 -- 100 % -- -- 06/11/25 0750 134/50 37 C (98.6 F) Oral 63 20 100 % -- -- 06/11/253 -- -- -- 66 22 97 % -- -- 06/11/251 -- -- -- 76 14 100 % -- -- 06/10/250 -- -- -- 79 25 100 % -- -- 06/10/258 -- -- -- 67 25 100 % -- -- 06/10/252 123/76 37.3 C (99.1 F) Oral 67 16 99 % -- -- 06/10/252052 -- -- -- 69 16 99 % -- -- 06/10/252051 -- -- -- 70 16 100 % -- -- 06/10/25 1601 (!) 145/49 -- -- 79 -- 100 % -- -- 06/10/25 1558 -- -- -- -- 16 -- -- -- Post-Dialysis Arterial Catheter Locking Solution: Heparin (1000units:1ml) Volume (ml): 1.1 Venous Catheter Locking Solution: Heparin (1000units:1ml) Volume (ml): 1.4 Post-Treatment Procedures: Blood returned, Catheter capped, clamped and heparinized x 2 ports Machine Disinfection Process: Exterior Machine Disinfection Rinseback Volume (mL): 200 mL Total Liters Processed (L/min): 79.1 L/min Dialyzer Clearance: Lightly streaked Heparin Amount Administered During Treatment (mL): 0 units Hemodialysis Intake (ml): 400 ml Hemodialysis Output (ml): 2000 ml NET Removed (ml): 1600 ml Tolerated Treatment: Good Interventions Taken: Ultrafiltration goal decreased Patient Response to Treatment: tolerated well Physician Notified: No Patient Disposition: Remain in ICU/ED Charge: $ IP Hemodialysis Charge: Hemodialysis Provider Notification Provider Notification Reason for Communication: Review Case (Pt last recieved dialysis 06/04.. Labs declining. Na 129, Cr 4.25, BUN 51) Provider Name: Sergio Provider Role: Hospitalist Method of Communication: Secure chat Response: Waiting for response Notification Date: 06/08/25 Notification Time: 2118 Provider Role: Hospitalist Method of Communication: Secure chat Response: Waiting for response Notification Time: 2118 Handoff complete and report given to Primary RN at 1422. Primary RN (First Initial, Last Name, Title): Thalia Amaro RN Education Person Educated: Patient Knowledge Base: REJI Barriers to Learning?: Trach Preferred method of Learning: Hands-on Topic(s): Procedural Teaching Tools: Explanation Response to Education: Verbalized Understanding and Requires Follow-up [1] No Known Allergies [2] Patient Active Problem List Diagnosis Anemia Anemia, unspecified type Moderate malnutrition (CMS/HCC) (HCC) [3] dextrose 5 % and sodium chloride 0.9 %, 75 mL/hr, Last Rate: Stopped (06/10/25 1900) Patient tolerated the procedure well. 600ml's of clear gold fluid removed. Fluid left with ICU nurse for labs to be sent. Patient in ICU bed 4 for left thoracentesis. Abigail Valdez PA-C in to speak with the patient regarding procedure, and consent was obtained. Patient's lab values and allergies were reviewed. Patient was placed right side laying on exam table, prepped and draped in sterile fashion. Telemetry monitors were placed. Wound Care consulted for Pressure Injury Prevention. Pt's Tyler score= 13 on 06/07 Pt's pressure points assessed. Pt with trach/vent. Pt's Right heel, Elbows, Occiput and ears all intact. [place] and blanchable tissues noted to right heel. 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 For the above wound assessments and treatment plan, please see Wound/Ostomy FULL STACK DEVELOPER progress notes. Prevention Measures in place, including: [place] sheet with pillows/wedges, Foam heel protector (obtained and applied to right heel), Heels elevated off bed on pillows, Zinc/Moisture Barrier ointment (ET mix also at bedside), Waffle chair cushion (obtain if out of bed). Skin Care precaution order set in place. Dietitian consult in place. PT consult completed, see note from 06/02. D/W nursing staff. Will continue to follow pt. Please secure chat for any questions or concerns. Yany Thomason RN 1.6L removed, Albumin and decreased UF goal for hypotension Patient Name: Rosa Myers Patient : 1950 Acct: [id number] Date of Admission: 06/01/2025 Room/Bed: 222-/222-04 A Code Status: Full Code Allergies: Allergies[1] Diagnosis: Problem List[2] Treatment: Hemodialysis 1:1 Priority: Routine Location: ICU Diabetic: Yes NPO: Yes Isolation Precautions: Contact Consent for Treatment Verified: Yes Blood Consent Verified: Not Applicable ICEBOAT: Identify, Consent, Equipment, HepB Status, Orders Complete, Access Verified, Timeliness Second Clinician Verifying: Mauricio Torres RN Time out performed prior to access at 1523. Report Received from Primary RN at 1450. Primary RN (First Initial, Last Name, Title): Mauricio Torres RN Incapacitated Nurse Education Completed: Yes HBsAg ONLY: Date Drawn: June 02, 2025 Results: Negative HBsAb: Date Drawn: June 02, 2025 Results: Susceptible <10 Order Dialyzer: Nipro Na+ Modeling: Not Applicable Dialysate Temperature (C): 36 Blood Flow Rate (BFR): 350 Dialysate Flow Rate (DFR): 600 Access to be Utilized Access: Tunneled Catheter Location: Subclavian Side: Right Needle gauge: Not Applicable + Bruit/Thrill: Not Applicable First Use X-ray Verified: Not Applicable OK to use line order: Not Applicable Site Assessment: Signs and Symptoms of Infection/Inflammation: Yes, see line below If yes: Redness Dressing: Dry and Intact Site Prep: Medical Aseptic Technique Dressing Changed this Treatment: Yes If yes, by whom: Carl MICHELE Date of Last Dressing Change: June 04, [address]?: Yes Red Alcohol Caps in place?: Yes Gauze Dressing?: No Non-Dialysis Use?: No Comment: Flows: Good If access problem, who was notified: Pre and Post-Assessment Patient Vitals for the past 8 hrs: Skin Color Skin Condition/Temp Generalized Edema 06/04/25 1500 Pale Warm;Dry Non-pitting 06/04/25 1933 Pale Warm;Dry Non-pitting Labs Lab Results Component Value Date/Time WBC 6.2 06/04/2025 0432 HGB 7.4 (L) 06/04/2025 0432 HCT 23.8 (L) 06/04/2025 0432 PLT 247 06/04/2025 0432 NA 130 (L) 06/04/2025 0432 K 3.4 (L) 06/04/2025 0432 CL 93 (L) 06/04/2025 0432 CO2 26 06/04/2025 0432 BUN 43 (H) 06/04/2025 043 CREATININE 3.51 (H) 06/04/2025 043 CALCIUM 9.0 06/04/2025 0432 IV Drips and Rate/Dose Continuous Meds[3] Safety - Before each treatment: Dialysis Machine No.: [id number] RO Machine Number: [id number] Dialyzer Lot No.: [id number] Tubing Lot Number: [id number] All Connections Secure: Yes Venous Parameters Set: Yes Arterial Parameters Set: Yes NS Bag: Yes Saline Line Double Clamped: Yes Dialyzer: Nipro Prime Volume (mL): 200 mL RO Machine Number: [id number] RO Machine Log Sheet Completed: Yes Machine Alarm Self Test: Completed, Passed (06/04/251522) Air Foam Detector: Tested, Proper Function, pH Reading Extracorporeal Circuit Tested for Integrity: Yes Machine Conductivity: 13.9 Manual Conductivity: 13.6 Manual Ph: 7.4 Bleach Test (Neg): Yes Bath Temperature: 36 C (96.8 F) Conductivity Meter Serial #: [id number] Machine Functioning Alarm Free? Yes Dialysis Bath: K+ (Potassium): 4 Ca+ (Calcium): 2.5 Na+ (Sodium): 137 HCO3 (Bicarb): 35 Bicarbonate Concentrate Lot No.: [id number] Acid Concentrate Lot No.: [id number] Chlorine Testing - Before each treatment and every 4 hours: Time On: 152 Time Off: 1922 Treatment Goal: 3L Weight Height: 165.1 cm (5' 5") (06/02/25 0713) 1st check: less than 0.1 ppm at: 1509 2nd check: less than 0.1 ppm at: 1728 3rd check: Not Applicable (if greater than 0.1 ppm, then check every 30 minutes from secondary) Access Flows and Pressures Patient Vitals for the past 8 hrs: Blood Flow Rate (mL/min) Ultrafiltration Rate (ml/hr) Arterial Pressure (mmHg) Venous Pressure (mmHg) TMP DFR Access Visible Intra-Hemodialysis Comments 06/04/25 1523 350 mL/min 870 ml/hr -120 mmHg 110 mmHg 110 600 Yes tx started per policy without difficulty, no change in condition noted, LVSD 06/04/25 1530 350 mL/min 870 ml/hr -130 mmHg 110 mmHg 110 600 Yes no sign of acute distress 06/04/25 1545 350 mL/min 870 ml/hr -150 mmHg 120 mmHg 110 600 Yes denies needs, decreased UF goal 06/04/25 1600 350 mL/min 590 ml/hr -150 mmHg 120 mmHg 110 600 Yes no sign of acute distress, watching tv, LVSD 06/04/25 1615 350 mL/min 590 ml/hr -170 mmHg 120 mmHg 110 600 Yes watching tv, no sign of acute distress 06/04/25 1630 350 mL/min 590 ml/hr -140 mmHg 120 mmHg 110 600 Yes watching tv, no sign of acute distress 06/04/25 1645 350 mL/min 590 ml/hr -140 mmHg 120 mmHg 110 [address], no sign of acute distress, LVSD 06/04/25 1649 -- -- -- -- -- -- -- denies needs, decredased UF goal 06/04/25 1700 350 mL/min 470 ml/hr -160 mmHg 110 mmHg 110 600 Yes eyes closed with no sign of acute distress 06/04/25 1715 350 mL/min 470 ml/hr -150 mmHg 120 mmHg 110 600 Yes watching tv, no sign of acute distress 06/04/25 1723 -- -- -- -- -- -- -- albumin started 06/04/25 1730 350 mL/min 470 ml/hr -140 mmHg 130 mmHg 110 600 Yes getting clean up after being incont of stool 06/04/25 1745 350 mL/min 450 ml/hr -130 mmHg 130 mmHg 110 600 Yes denies needs, LVSD 06/04/25 1800 350 mL/min 450 ml/hr -130 mmHg 130 mmHg 110 600 Yes denies needs, watching tv, LVSD 06/04/25 1815 350 mL/min 450 ml/hr -130 mmHg 130 mmHg 110 600 Yes watching tv, no sign of acute distress, LVSD 06/04/25 1830 350 mL/min 450 ml/hr -130 mmHg 120 mmHg 110 600 Yes eye closed, no sign of acute distress, LVSD, increased UF goal 06/04/25 1845 350 mL/min 450 ml/hr -130 mmHg 130 mmHg 110 600 Yes watching tv, no sign of acute distress, LVSD 06/04/25 1900 350 mL/min 460 ml/hr -130 mmHg 130 mmHg 110 600 Yes watching tv, no sign of acute distress 06/04/25 1915 350 mL/min 450 ml/hr -130 mmHg 130 mmHg 110 600 Yes watching tv, denies needs, no sign of acute distress 06/04/25 1923 350 mL/min -- -130 mmHg 130 mmHg 110 600 Yes tx completed, blood rinsed back per policy, denies needs, no sign of acute distress Vital Signs Patient Vitals for the past 24 hrs: BP Temp Pulse Resp SpO2 06/04/25 1933 135/61 36.7 C (98 F) 62 23 100 % 06/04/25 1923 119/54 -- 60 17 100 % 06/04/25 1915 137/54 -- 69 17 100 % 06/04/25 1900 (!) 140/48 -- 58 18 100 % 06/04/25 1845 (!) 126/47 -- 59 17 100 % 06/04/25 1835 123/96 -- 63 17 100 % 06/04/25 1830 123/63 -- 59 17 100 % 06/04/25 1815 130/61 -- 60 17 100 % 06/04/25 1800 (!) 112/39 -- 57 16 100 % 06/04/25 1745 (!) 114/35 -- 55 17 100 % 06/04/25 1738 (!) 86/51 -- 66 13 100 % 06/04/25 1732 (!) 81/70 -- 61 16 100 % 06/04/25 1730 -- -- 69 22 100 % 06/04/25 1720 (!) 118/35 -- 57 15 100 % 06/04/25 1715 (!) 118/35 -- 59 19 100 % 06/04/25 1700 (!) 146/45 -- 54 17 100 % 06/04/25 1649 (!) 110/38 -- 54 15 100 % 06/04/25 1645 -- -- 56 19 100 % 06/04/25 1632 120/79 -- 55 18 100 % 06/04/25 1630 -- -- 54 14 100 % 06/04/25 1615 127/80 -- 59 18 100 % 06/04/25 1605 122/87 -- 59 20 100 % 06/04/25 1600 122/87 -- 57 19 100 % 06/04/25 1559 -- -- 57 18 100 % 06/04/25 1551 (!) 127/47 -- 58 20 100 % 06/04/25 1545 (!) 71/56 -- 61 (!) 27 100 % 06/04/25 1530 97/60 -- 57 22 100 % 06/04/25 1523 130/51 -- 52 15 100 % 06/04/25 1500 (!) 114/40 36.9 C (98.4 F) 57 17 100 % 06/04/25 1405 90/70 -- 57 15 100 % 06/04/25 1308 -- -- 51 14 100 % 06/04/25 1000 (!) 111/39 -- 56 14 100 % 06/04/25 0857 -- -- 57 16 100 % 06/04/25 0827 (!) 119/49 -- 57 15 100 % 06/04/25 0454 -- -- 61 17 100 % 06/04/25 0401 (!) 112/45 37 C (98.6 F) 59 19 100 % 06/03/25 2357 -- -- 61 14 100 % 06/03/25 2210 -- -- 59 14 100 % 06/03/25 2202 116/55 -- 73 19 100 % 06/03/256 -- -- 60 15 100 % Post-Dialysis Arterial Catheter Locking Solution: Heparin (1000units:1ml) Volume (ml): 1.6 Venous Catheter Locking Solution: Heparin (1000units:1ml) Volume (ml): 1.6 Post-Treatment Procedures: Blood returned, Catheter capped, clamped and heparinized x 2 ports Machine Disinfection Process: Exterior Machine Disinfection Rinseback Volume (mL): 200 mL Total Liters Processed (L/min): 78.8 L/min Dialyzer Clearance: Lightly streaked Heparin Amount Administered During Treatment (mL): 0 units Hemodialysis Intake (ml): 500 ml Hemodialysis Output (ml): 2100 ml NET Removed (ml): 1600 ml Tolerated Treatment: Fair Interventions Taken: Ultrafiltration goal decreased, Medication Patient Response to Treatment: tolerated well with albumin and decreased goal Physician Notified: No Patient Disposition: Remain in ICU/ED Charge: $ IP Hemodialysis Charge: Hemodialysis Provider Notification Provider Notification Reason for Communication: Other (Comment) (Need PRN medication for Hypotension) Provider Name: DR. Acosta Provider Role: Hospitalist Method of Communication: Secure chat Response: Waiting for response Notification Date: 06/01/25 Notification Time: 2118 Provider Role: Hospitalist Method of Communication: Secure chat Response: Waiting for response Notification Time: 2118 Handoff complete and report given to Primary RN at 1939. Primary RN (First Initial, Last Name, Title): Cuca Lynn RN Education Person Educated: Patient Knowledge Base: Minimal Barriers to Learning?: Trach with vent support Preferred method of Learning: Hands-on Topic(s): Procedural Teaching Tools: Explanation Response to Education: Verbalized Understanding and Requires Follow-up [1] No Known Allergies [2] Patient Active Problem List Diagnosis Anemia Anemia, unspecified type Moderate malnutrition (CMS/HCC) (HCC) [3] Patient Name: Rosa Myers Patient : 1950 Acct: [id number] Date of Admission: 06/01/2025 Room/Bed: 222/ A Code Status: Full Code Allergies: Allergies[1] Diagnosis: Problem List[2] Treatment: Hemodialysis 1:1 Priority: STAT Location: ICU Diabetic: Yes NPO: No Isolation Precautions: None Consent for Treatment Verified: Yes Blood Consent Verified: Not Applicable ICEBOAT: Identify, Consent, Equipment, HepB Status, Orders Complete, Access Verified, Timeliness Second Clinician Verifying: Cuca De Jesus RN Time out performed prior to access at 2119. Report Received from Primary RN at 1999. Primary RN (First Initial, Last Name, Title): Cuca De Jesus RN Incapacitated Nurse Education Completed: Cuca Romo RN HBsAg ONLY: Date Drawn: June 01, 2025 Results: Unknown HBsAb: Date Drawn: June 01, 2025 Results: Unknown Order Dialyzer: Nipro Na+ Modeling: Not Applicable Dialysate Temperature (C): 35 Blood Flow Rate (BFR): 450 Dialysate Flow Rate (DFR): 600 Access to be Utilized Access: Non-tunneled Catheter Location: Internal Jugular Side: Right Needle gauge: Not Applicable Site Assessment: Signs and Symptoms of Infection/Inflammation: None If yes: Not Applicable Dressing: Dry and Intact Site Prep: Medical Aseptic Technique Dressing Changed this Treatment: Yes If yes, by whom: NA - not changed today Date of Last Dressing Change: June 01, [address]?: Yes Red Alcohol Caps in place?: Yes Non-Dialysis Use?: No Comment: Flows: Lines Reversed and Good If access problem, who was notified: Pre and Post-Assessment Patient Vitals for the past 8 hrs: Level of Consciousness Bilateral Breath Sounds Skin Color Skin Condition/Temp Abdomen Inspection Bowel Sounds (All Quadrants) Edema Generalized Edema RLE Edema LLE Edema 06/01/25 191 -- Diminished -- -- Soft;Rounded Active Right lower extremity;Left lower extremity -- +1 +1 06/01/252099 Alert (0) -- [place] Warm;Dry Soft -- Generalized -- Non-pitting Non-pitting 06/02/25 0100 -- -- -- -- -- -- -- Non-pitting -- -- Labs Lab Results Component Value Date/Time WBC 5.5 06/01/2025 1113 HGB 7.8 (L) 06/01/2025 1729 HCT 25.2 (L) 06/01/2025 1729 PLT 244 06/01/2025 1113 NA 134 (L) 06/01/2025 1113 K 3.5 06/01/2025 1113 CL 93 (L) 06/01/2025 1113 CO2 30 06/01/2025 1113 BUN 41 (H) 06/01/2025 1113 CREATININE 2.34 (H) 06/01/2025 1113 CALCIUM 9.4 06/01/2025 1113 IV Drips and Rate/Dose Continuous Meds[3] Safety - Before each treatment: Dialysis Machine No.: [id number] Machine Number: [id number] Dialyzer Lot No.: [id number] Tubing Lot Number: [id number] All Connections Secure: Yes Venous Parameters Set: Yes Arterial Parameters Set: Yes NS Bag: Yes Saline Line Double Clamped: Yes Dialyzer: Nipro Prime Volume (mL): 200 mL RO Machine Number: [id number] RO Machine Log Sheet Completed: Yes Machine Alarm Self Test: Completed, Passed (2119) (06/01/252099) Air Foam Detector: Tested, Proper Function Extracorporeal Circuit Tested for Integrity: Yes Machine Conductivity: 13.8 Manual Conductivity: 13.8 Manual Ph: 7.6 Bleach Test (Neg): Yes Bath Temperature: 36 C (96.8 F) Conductivity Meter Serial #: [id number] Machine Functioning Alarm Free? Yes Dialysis Bath: K+ (Potassium): 3 Ca+ (Calcium): 2.5 Na+ (Sodium): 137 HCO3 (Bicarb): 35 Bicarbonate Concentrate Lot No.: [id number] Acid Concentrate Lot No.: [id number] Chlorine Testing - Before each treatment and every 4 hours: Time On: 2128 Time Off: 0100 Treatment Goal: 3.5L 1st check: less than 0.1 ppm at: 2100 2nd check: less than 0.1 ppm at: 2300 3rd check: Not Applicable (if greater than 0.1 ppm, then check every 30 minutes from secondary) Access Flows and Pressures Patient Vitals for the past 8 hrs: Blood Flow Rate (mL/min) Ultrafiltration Rate (ml/hr) Arterial Pressure (mmHg) Venous Pressure (mmHg) TMP DFR Access Visible Intra-Hemodialysis Comments 06/01/252128 200 mL/min 1140 ml/hr -50 mmHg 70 mmHg 120 600 Yes tx initiated, lines secured, call light within reach 06/01/25 2145 350 mL/min 1140 ml/hr -70 mmHg 80 mmHg 120 600 Yes ufr 306 06/01/25 2200 350 mL/min 1140 ml/hr -90 mmHg 90 mmHg 120 600 Yes ufr 580 06/01/25 2215 350 mL/min 1140 ml/hr -110 mmHg 8 mmHg 13 600 Yes ufr 860 06/01/25 2230 350 mL/min 1140 ml/hr -110 mmHg 90 mmHg 120 600 Yes ufr 1141 06/01/25 2245 350 mL/min 1140 ml/hr -110 mmHg 90 mmHg 120 600 Yes ufr 1421 06/01/25 2300 350 mL/min 1140 ml/hr -110 mmHg 90 mmHg 120 600 Yes ufr 1700 06/01/25 2315 350 mL/min 1140 ml/hr -110 mmHg 90 mmHg 120 600 Yes ufr 1988 06/01/25 2330 350 mL/min 1140 ml/hr -90 mmHg 100 mmHg 130 600 Yes ufr 2291 06/01/25 2345 350 mL/min 1140 ml/hr -90 mmHg 100 mmHg 130 600 Yes ufr 2551 06/02/25 0000 350 mL/min 1140 ml/hr -90 mmHg 100 mmHg 130 600 Yes ufr 2838 06/02/25 0015 350 mL/min 1140 ml/hr -90 mmHg 100 mmHg 130 600 Yes ufr 3130 06/02/25 0030 350 mL/min 1140 ml/hr -90 mmHg 100 mmHg 130 600 Yes ufr 3420 06/02/25 0045 350 mL/min 1140 ml/hr -90 mmHg 100 mmHg 130 600 Yes ufr 3906 06/02/25 0100 200 mL/min -- -- -- -- -- Yes tx completed, pt stable, call light within reach Vital Signs Patient Vitals for the past 24 hrs: BP Temp Temp src Pulse Resp SpO2 06/02/25 0100 (!) 90/42 -- -- 61 19 99 % 06/02/25 0045 -- -- -- 68 21 100 % 06/02/25 0030 (!) 90/40 -- -- 69 15 100 % 06/02/25 0015 95/52 -- -- 66 23 100 % 06/02/25 0000 91/79 -- -- 59 15 100 % 06/01/25 2355 -- -- -- 63 18 100 % 06/01/25 2345 (!) 99/43 -- -- 64 16 100 % 06/01/25 2330 101/65 -- -- 64 18 100 % 06/01/25 2315 (!) 99/40 -- -- 63 20 100 % 06/01/25 2300 108/81 -- -- 64 19 100 % 06/01/25 2245 102/60 -- -- 60 16 100 % 06/01/25 2230 123/57 -- -- 61 13 100 % 06/01/25 2215 (!) 121/41 -- -- 63 23 100 % 06/01/25 2200 (!) 115/46 -- -- 64 18 98 % 06/01/25 2145 (!) 114/48 -- -- 61 15 97 % 06/01/25 2129 116/56 -- -- 63 15 100 % 06/01/252099 -- -- -- 62 16 100 % 06/01/252013 -- -- -- 64 21 100 % 06/01/25 1919 144/98 36.7 C (98.1 F) Oral 64 15 100 % 06/01/25 1802 (!) 128/44 -- -- 59 14 100 % 06/01/25 1702 (!) 120/44 -- -- 62 14 100 % 06/01/25 1632 136/74 -- -- 66 21 100 % 06/01/25 1615 136/74 36.6 C (97.9 F) -- 63 17 -- 06/01/25 1506 114/53 36.6 C (97.9 F) -- 65 18 100 % 06/01/25 1434 (!) 129/49 -- -- 70 16 98 % 06/01/25 1431 -- -- -- 68 19 100 % 06/01/25 1353 (!) 125/43 36.4 C (97.6 F) -- 65 16 100 % 06/01/25 1338 131/56 36.5 C (97.7 F) -- 62 16 -- 06/01/25 1116 -- -- -- 65 19 100 % 06/01/25 1055 124/59 36.5 C (97.7 F) Oral 58 16 98 % Post-Dialysis Arterial Catheter Locking Solution: Heparin (1000units:1ml) Volume (ml): 1.6 Venous Catheter Locking Solution: Heparin (1000units:1ml) Volume (ml): 1.6 Post-Treatment Procedures: Catheter capped, clamped and heparinized x 2 ports Machine Disinfection Process: Exterior Machine Disinfection Rinseback Volume (mL): 300 mL Total Liters Processed (L/min): 67.6 L/min Dialyzer Clearance: Lightly streaked Hemodialysis Intake (ml): 500 ml Hemodialysis Output (ml): 4000 ml NET Removed (ml): 3500 ml Tolerated Treatment: Fair Interventions Taken: Medication Patient Response to Treatment: stable Physician Notified: No Patient Disposition: Remain in ICU/ED Charge: $ IP Hemodialysis Charge: Hemodialysis Provider Notification Handoff complete and report given to Primary RN at 010. Primary RN (First Initial, Last Name, Title): Cuca De Jesus RN Education Person Educated: Patient Knowledge Base: Substantial Barriers to Learning?: None Preferred method of Learning: Oral Topic(s): Access Care, Signs and Symptoms of Infection, and Procedural Teaching Tools: Explanation Response to Education: Verbalized Understanding [1] No Known Allergies [2] Patient Active Problem List Diagnosis Anemia Anemia, unspecified type [3] documented in this encounter [facility] 06-21-2025 Miscellaneous Notes Confirmed pickup time of 5pm by transport [facility] [address] KAYLAH OLIVAS at phone number [phone]. Location of facility drop off is to return back to [facility]. Facility notified via [facility], [facility] notified on secure chat. Transport requested 5PM in [facility]. Awaiting time confirmation. Discharge order noted. Anticipate tunneled line removal around 2PM today. Tasked RESPIRATORY CARE PROGRAM DIRECTOR to send discharge paperwork and MAR to [facility]. Tasked RESPIRATORY CARE PROGRAM DIRECTOR to arrange ambulance/ ACLS transport with trach/ vent/ O2 capabilities for return to [facility]. Transport arranged for 5pm. Updated bedside RN. Discharge med list transmitted to RETURN BACK TO [facility] per [facility] request. Care Management Progress Note Short Medical why still here: chronic trach/ vent/ PEG/ hemodialysis. IV antibiotics are complete today. Need to remove tunneled line that was placed for IV antibiotics. Dr Mukkamalla aware. Planned Discharge Disposition: Correction/Residential Care ([facility], no precert needed to return) Barriers/Today we still Wait: Administering IV medications, Procedure (comment) (needs tunneled line removed prior to transfer back to SNF) Length of Stay (Days): 20 GMLOS: 3.9 Care Management Progress Note Short Medical why still here: receiving IV antibiotics through 06/21. SNF unable to accommodate. Planned Discharge Disposition: Correction/Residential Care ([facility], no precert needed to return) Barriers/Today we still Wait: Administering IV medications Length of Stay (Days): 19 GMLOS: 3.9 Care Management Progress Note Short Medical why still here: receiving IV antibiotics through 06/21. SNF unable to accommodate. Planned Discharge Disposition: Correction/Residential Care ([facility], no precert needed to return) Barriers/Today we still Wait: Administering IV medications Length of Stay (Days): 18 GMLOS: 3.9 manager utilization management to follow for discharge planning. Care Management Progress Note Short Medical why still here: receiving IV antibiotics through 06/21. SNF unable to accommodate. Planned Discharge Disposition: [facility] Barriers/Today we still Wait: Administering IV medications Length of Stay (Days): 17 GMLOS: 3.9 manager utilization management to follow for discharge planning. Patient remains stable on chronic vent. Discussed with Marion MICHELE today in ICU, no new overnight concerns. Nursing facility unable to accept patient with tunneled line for IV antibiotics due to staffing. Patient will remain at [facility] through 06/21 to complete Abx course. Patient will not be seen by Pulmonary over the weekend. Please notify ICU attending with any urgent needs. Care Management Progress Note Short Medical why still here: chronic trach/ vent, dialysis, PEG/ tube feeds. Requires IV antibiotics through 06/21. Facility is unable to accept patient with a tunneled line for IV antibiotics due to lack of men's basketball coach on site. IP CONSULT TO WOUND PREVENTION INPATIENT CONSULT TO WOUND CARE PROVIDERS IP CONSULT TO PULMONOLOGY IP CONSULT TO DIETITIAN IP CONSULT TO NEPHROLOGY IP CONSULT TO INFECTIOUS DISEASES IP CONSULT TO GERIATRICS Planned Discharge Disposition: Correction[facility] Barriers/Today we still Wait: Administering IV medications Length of Stay (Days): 14 GMLOS: 3.9 manager utilization management to follow for discharge planning. Interventional Radiology Brief Postprocedure Note Procedure: IR cvc tunneled central line placement Preprocedure Diagnosis: Polymicrobial infection Postprocedure Diagnosis: no change Staff: Staff Role Anjum Fam MD Radiologist Oscar Moore RN Radiology Nurse Sagar Jovel RN Radiology Nurse Dolly Mccabe, RT (R) Commercial Green Retrofit Architect Iliana Salmon PA-C Physician Video Tape Transferrer Description of procedure: left chest tunneled central venous catheter placement Estimated Blood Loss: Minimal Medications Medications (Filter: Administrations occurring from 1440 to 1440 on 06/14/25) As of 06/14/25 1440 None Specimens No specimens collected Findings: patent left internal jugular vein Plan: routine postop care Complications: None Anesthesia: local See detailed result report with images in PACS. The patient tolerated the procedure well without incident or complication and is in stable condition. Anjum Fam MD Interventional Radiology Pager: Care Management Progress Note Short Medical why still here: receiving IV antibiotics. Coordinating plan of care between SNF and ID. SNF states they cannot administer the minocycline IV due to cost and patient will need additional line for administration of cefepime. Updated ID. Planned Discharge Disposition: Correction/Residential Care [facility] Barriers/Today we still Wait: Administering IV medications, Flight Dynamicist recommendations (comment), Post-discharge arrangement completion (comment) Length of Stay (Days): 13 GMLOS: No GMLOS Documented manager utilization management to follow for discharge planning. Faxed OPAT to [facility]. OPAT not received. Emailed OPAT to [email or web address] as requested. Care Management Progress Note Short Medical why still here: chronic trach/ vent/ PEG/ hemodialysis. New tunneled line placed. Plan for hemodialysis today. ID, nephrology, and pulmonology following. Planned Discharge Disposition: Correction/Residential Care ([facility]) Barriers/Today we still Wait: Administering IV medications, Flight Dynamicist recommendations (comment) (awaiting ID plan for antibiotics, awaiting nephrology clearance for discharge) Length of Stay (Days): 12 GMLOS: No GMLOS Documented manager utilization management to follow for discharge planning. Sent updated notes to return back to [facility] via [facility] per [facility] request. Await review and response regarding ability to accept. TCC notified. Care Management Progress Note Short Medical why still here: chronic trach/ vent/ PEG/ hemodialysis. Awaiting new tunneled line for dialysis. On Dificid and IV antibiotics per ID. Nephrology following. Planned Discharge Disposition: Correction/Residential Care ([facility]) Barriers/Today we still Wait: Administering IV medications, Procedure (comment) (awaiting tunneled line placement) Length of Stay (Days): 11 GMLOS: No GMLOS Documented manager utilization management to follow for discharge planning. Care Management Progress Note Short Medical why still here: chronic trach/ vent/ PEG/ hemodialysis. Awaiting new tunneled line for dialysis. On Dificid and IV antibiotics per ID. Nephrology following. Planned Discharge Disposition: Correction/Residential Care ([facility] bedhold, no precert needed. Barriers/Today we still Wait: Administering IV medications, Clinical stability, Symptomatic control Length of Stay (Days): 10 GMLOS: No GMLOS Documented manager utilization management to follow for discharge planning. Care Management Progress Note Short Medical why still here: C.diff pos, chronic trach/peg, pending HD cath change r/t infection. DCP- return to [facility]. Planned Discharge Disposition: Correction/Residential Care Barriers/Today we still Wait: Symptomatic control, Procedure (comment), Clinical stability Length of Stay (Days): 7 GMLOS: No GMLOS Documented Care Management Progress Note Short Medical why still here: ongoing C Diff diarrhea. Hemodialysis MWF. Chronic trach /vent/ PEG. Receiving tube feeds. On IV antibiotics. To have dialysis cath changed out. Planned Discharge Disposition: Correction/Residential Care ([facility]) bedhold, no precert needed to return Barriers/Today we still Wait: Administering IV medications, Clinical stability, Symptomatic control Length of Stay (Days): 6 GMLOS: No GMLOS Documented manager utilization management to follow for discharge planning. This RN traveled to ICU to assist to remove a tunneled hemodialysis catheter placed at an outside hospital due to infection concern. Lab values and allergies reviewed. Order verified. Patient placed supine, and dressing removed. Insertion site appeared to be red and tender with a small amount of pink drainage around the catheter. Line site prepared with sterile towels and antiseptic spray. Sutures removed. Line removed on exhalation. A 14 ugandan 23 cm tunneled hemodialysis catheter was removed from the patient's right internal jugular vein. Manual pressure was held for 5 minutes. No bleeding or hematoma noted. Sterile occlusive dressing placed. A tip culture was collected and left with ICU nurse to send to lab. Patient tolerated the procedure well. Patient instructed to keep dressing intact for 48 hours. Care Management Progress Note Short Medical why still here: ongoing C Diff diarrhea. Hemodialysis MWF. Chronic trach /vent/ PEG. Receiving tube feeds. Hemoglobin 7.2 Planned Discharge Disposition: Correction/Residential Care ([facility]) bedhold, no precert needed Barriers/Today we still Wait: Clinical stability, Symptomatic control Length of Stay (Days): 5 GMLOS: No GMLOS Documented manager utilization management to follow for discharge planning. Care Management Progress Note Short Medical why still here: anemia. PRBC ordered. Hemoglobin was 7.6 most recently. Continues with C Diff diarrhea. Chronic trach/ vent/ PEG/ tube feeds. Planned Discharge Disposition: Correction/Residential Care patient is a bedhold at [facility] Barriers/Today we still Wait: Administering IV medications, Clinical stability, Symptomatic control Length of Stay (Days): 4 GMLOS: No GMLOS Documented manager utilization management to follow for discharge planning. [facility] request. Await review and response regarding ability to accept. TCC notified. Care Management Progress Note Short Medical why still here: anemia. Hemoglobin improved. Receiving hemodialysis. Planned Discharge Disposition: Correction/Residential Care patient is from [facility], [facility] to [facility] for her to return. Awaiting response. Barriers/Today we still Wait: Administering IV medications, Clinical stability, Symptomatic control, Flight Dynamicist recommendations (comment) Length of Stay (Days): 3 GMLOS: No GMLOS Documented manager utilization management to follow for discharge planning. 12:14 PM UPDATE: patient is a medicaid bedhold at [facility] and may return whenever she is medically ready. documented in this encounter [facility] 06-21-2025 Note [facility] 06-21-2025 Hospital course Narrative Discharge Summary Rosa Myers : 1950 ADMIT DATE: 06/01/2025 DISCHARGE DATE: 06/21/2025 PRIMARY CARE PHYSICIAN: No primary care provider on file. VISIT STATUS: Admission CODE STATUS: Full Code DISCHARGE DIAGNOSES: Acute infectious and metabolic encephalopathy-improved Acute on chronic anemia due to renal disease Chronic bilateral pleural effusions-status post ultrasound-guided left thoracentesis with 600 mL removed Pneumonia bilateral and healthcare associated, respiratory culture growing Serratia marcescens, stenotrophomonas sp, Pseudomonas aeruginosa Chronic respiratory failure tracheostomy dependent Hemodialysis line infection removal C. difficile colitis Hypokalemia Pressure ulcers present on admission ESRD on HD chronic heart failure Severe malnutrition GERD Anxiety Depression Type 2 diabetes with peripheral neuropathy Chronic candidiasis Neuropathy Procedures-tunneled dialysis catheter right chest removed on 06/06, insertion of right-sided dual-lumen tunneled dialysis catheter on 06/12, tunneled central line placement on 06/14 and removal on 06/21 (left internal jugular) HOSPITAL COURSE: Patient is a 75-year-old female who is from extended-care facility, [facility], admitted to [facility] on June 01, 2025 with low blood counts and anemia which is acute on chronic her initial hemoglobin was 6.5 and she was given PRBC transfusion She has multiple wounds on the coccyx sacrum and lower extremity present on admission, she is a patient with a tracheostomy tube and on chronic ventilator therapy, also on chronic PEG tube feeding, she recently had C. difficile infection and was treated with fidaxomicin, her hemodialysis catheter has been in infected which was removed on June 06, patient was treated for pneumonia due to multiple organisms Pseudomonas aeruginosa, Serratia marcescens and Proteus species, patient received cefepime and minocycline and finished a course on 06/21, she had temporary central line catheter placed which was removed on 06/21. PEG tube feeding was continued in the hospital, she had dialysis sessions, serum creatinine/BUN 2.06/22 at discharge. She will be discharged to extended-care facility on 06/21, look for discharge medications below. Physical exam: General appearance: No apparent distress, appears stated age, AAOX3, responds slowly to verbal commands, HEENT -forehead lesion Oral: Tongue is semi-moist Cardiovascular: S1/S2 heard, RRR Right internal jugular tunneled dialysis catheter Respiratory: Diminished air entry anteriorly, tracheostomy site is red and inflamed-on admission improved, copious secretions from the tube being suction Abdomen: Soft, non-tender, non-distended bowel sounds positive, PEG tube in place, Musculoskeletal: Bilateral venous stasis changes Bilateral heel protectors SIGNIFICANT DIAGNOSTIC STUDIES: Placement of tunneled dialysis catheter Placement and removal of temporary central line for the administration of antibiotics CONSULTANTS: Nephrology, infectious diseases, wound care, pulmonology, dietitian, geriatrics RECOMMENDED NEXT STEPS: Follow-up with pulmonology, tracheostomy care with frequent suctioning, PEG tube management and dietary advice DISCHARGE MEDICATIONS: Medication List START taking these medications FLUoxetine 20 MG capsule Commonly known as: PROzac 1 capsule (20 mg) by Per G Tube route daily. Replaces: FLUoxetine 20 MG/5ML solution miconazole 2 % powder Commonly known as: Micotin Apply topically 2 times daily for 7 days. minocycline 100 MG capsule Take 1 capsule (100 mg) by mouth 2 times daily for 1 day. CHANGE how you take these medications atorvastatin 40 MG tablet Commonly known as: Lipitor 1 tablet (40 mg) by Per G Tube route Nightly. What changed: how to take this when to take this additional instructions busPIRone 5 MG tablet Commonly known as: Buspar 1 tablet (5 mg) by Per G Tube route 3 times daily. What changed: how to take this carvedilol 3.125 MG tablet Commonly known as: Coreg 1 tablet (3.125 mg) by Per G Tube route 2 times daily (with meals). What changed: medication strength how much to take how to take this when to take this additional instructions furosemide 20 MG tablet Commonly known as: Lasix Take 1 tablet (20 mg) by mouth Twice a Week. Via PEG, given on wed/Wednesday for weight gain What changed: when to take this midodrine 10 MG tablet Commonly known as: Proamatine 1 tablet (10 mg) by Per G Tube route 3 times daily. What changed: how to take this additional instructions CONTINUE taking these medications insulin glargine 100 UNIT/ML injection Commonly known as: Lantus Insulin Lispro 100 UNIT/ML solution injection Commonly known as: Humalog STOP taking these medications FLUoxetine 20 MG/5ML solution Commonly known as: PROzac Replaced by: FLUoxetine 20 MG capsule pantoprazole 20 MG EC tablet Commonly known as: ProtoNix Petrolatum ointment Where to Get Your Medications These medications were sent to [facility] [address] [place] [id number] Hours: Wednesday to Wednesday 10 am to 6 pm atorvastatin 40 MG tablet busPIRone 5 MG tablet carvedilol 3.125 MG tablet FLUoxetine 20 MG capsule furosemide 20 MG tablet miconazole 2 % powder midodrine 10 MG tablet minocycline 100 MG capsule DIET: Diet, tube feeding no tray PEG; Nepro w/CARB Steady; Continuous; No; 40; 40 ACTIVITY: COMPLEXITY OF FOLLOW UP: [] Moderate Complexity: follow up within 7-14 calendar days (63393) [] Severe Complexity: follow up within 7 calendar days (60772) FOLLOW UP TESTING, PENDING RESULTS OR REFERRALS AT TRANSITIONAL CARE VISIT: [] Yes [] No PENDING STUDIES: DISPOSITION: FACILITY/HOME CARE AGENCY NAME: Follow up with [facility] - [address] [address] on INSTRUCTIONS TO MA/SW: Please call patient on day after discharge (must document patient contacted within 2 business days of discharge). FOLLOW UP QUESTIONS FOR MA/SW: 1. Did you get medications filled and taking them as instructed from discharge? 2. Are you following your discharge instructions from your hospital stay? 3. Please confirm patient is scheduled for a follow up appointment within the above time frame. DISCHARGE TIME: 37 Min SIGNED: Sharyn Amaya MD 06/21/2025, 11:09 AM documented in this encounter [facility] 06-14-2025 Hospital Discharg e instructions Sagar Jovel RN - 06/14/2025 2:56 PM EDT Tunneled Central Line Discharge Instructions Your Recovery A central line is an intravenous catheter placed into a vein in your neck that allows medications to be administered to you. Central lines are generally placed if you need to receive medications such as antibiotics over a longer period of time. The doctor has made a puncture site above your collarbone and another small cut on your chest. He then made a small tunnel under your skin between the two cuts and the catheter was pulled through the tunnel. The tip of the catheter was then thread into a vein in your neck and it ends in a vein near your heart. The doctor secured the catheter to your skin using stitches and a bandage was placed on top. This care sheet gives you a general idea about how long it will take for you to recover. However, each person recovers at a different pace. How can you care for yourself at home? Activity - Avoid heavy lifting or strenuous activities for 24-48 hours following your procedure Diet - You may resume your normal diet. - Drink plenty of fluids. Medications - You may resume your home medications the day after the procedure unless otherwise instructed by your doctor. Care of Your Tunneled Central Line - You will have two incision sites following catheter insertion: a small puncture site above your collarbone and another small cut is made on your chest. - The smaller incision will likely have a small amount of skin glue to keep it closed. Do not pick this skin glue off, it will fall off on its own in about a week. - The other incision has been closed with stitches that also help the catheter stay in place. These stitches will be removed when the catheter is taken out. - It is important to keep these areas clean and dry. If you must shower, cover these areas with plastic or saran wrap to keep them completely dry. - Monitor you incision daily for any signs of infection including redness, swelling, increased pain, drainage. If you are concerned about infection or your incisions healing, reach out to your doctor. - Your central line will be secured to your neck with a special dressing to keep it in place. Do not attempt to remove or change this dressing yourself. Dressings are typically changed once a week by a nurse administering your medication. The doctor that ordered the central line to be placed will arrange for these dressing changes. When should you call for help? - For emergent concerns following your procedure please call 911 or go to the nearest emergency room. - For any non-emergent post-procedure questions or concerns, please give us a call between 8am and 5pm. - [facility] Radiology - [phone] - [facility] Radiology - [phone] - For questions after hours, please call [phone] and ask for the on-call Angiography Radiologist. This handout is intended to provide general educational material to assist you in making informed decisions regarding your medical care. Specific questions about your unique medical conditions should be referred to your primary care physician. Marion Swartz RN - 06/21/2025 7:02 AM EDT Images from the original note were not included. Continuity of Care Form Patient Name: Rosa Myers : 1950 Admit date: 06/01/2025 Discharge date: 06/21/2025 Code Status Order: Full Code Advance Directives: N Admitting Physician: Sharyn Amaya MD PCP: No primary care provider on file. Discharging Nurse: Marion Swartz RN Discharging Hospital Unit/Room#: 222-04/222-04 A Discharging Unit Emergency Contact: No emergency contact information on file. Past Surgical History: No past surgical history on file. Immunization History: There is no immunization history on file for this patient. Active Problems: Medical Problems Problem List * (Principal) Anemia Anemia, unspecified type Moderate malnutrition (CMS/HCC) (HCC) (Chronic) Acute metabolic encephalopathy Anxiety and depression Debility Isolation/Infection: Enhanced Contact C. difficile Nurse Assessment: Last Vital Signs: BP 143/54 (BP Location: Right arm, Patient Position: Lying) Pulse 107 Temp 37.1 C (98.8 F) (Axillary) Resp 20 Ht 5' 5" (1.651 m) Wt 229 lb 0.9 oz (104 kg) SpO2 100% BMI 38.12 kg/m Last documented pain score (0-10 scale): Last Weight: Wt Readings from Last 1 Encounters: 06/11/25 229 lb 0.9 oz (104 kg) Mental Status: TERRA Patient Mental Status: alert IV Access: TERAR IV Access: Dialysis Catheter - site: internal jugular right, condition patent and no redness, insertion date: 06/12/2025 Nursing Mobility/ADLs: Walking Total assistance Transfer Total assistance Bathing Total assistance Dressing Total assistance Toileting Total assistance Feeding Total assistance Gear Machinist Total assistance Med Delivery no Wound Care Documentation and Therapy: Elimination: Continence: Bowel: no Bladder: no Urinary Catheter: None Colostomy/Ileostomy/Ileal Conduit: Peg tube Date of Last BM: 06/21/2025 Intake/Output Summary (Last 24 hours) at 06/21/2025 0659 Last data filed at 06/21/2025 0624 Gross per 24 hour Intake 1927 ml Output -- Net 1927 ml I/O last 3 completed shifts: In: 2730 (26.3 mL/kg) [I.V.:200 (1.9 mL/kg); NG/GT:2380; IV Piggyback:150] Out: - (0 mL/kg) Weight: 103.9 kg Safety Concerns: at risk for falls and aspiration risk Impairments/Disabilities: language barrier - Trach Nutrition Therapy: Current Nutrition Therapy: Tube feedings: Nepro with Carb steady @40ml/hr with water flush 100ml every 4 hours. Routes of Feeding: gastrostomy tube Liquids: Daily Fluid Restriction: no Last Modified Barium Swallow with Video (Video Swallowing Test): not done Treatments at the Time of Hospital Discharge: Respiratory Treatments: Oxygen Therapy: Ventilator: Ventilator settings: Vt (Set, mL): 450 mL Resp Rate (Set): 14 FiO2 (%): 30 % PEEP/CPAP (cm H2O): 5 cm H20 Rehab Therapies: nursing and aide Weight Bearing Status/Restrictions: bed rest Other Medical Equipment (for information only, NOT a DME order): none Other Treatments: Patient's personal belongings (please select all that are sent with patient): none RN SIGNATURE: MANAGEMENT/SOCIAL WORK SECTION Inpatient Status Date: Discharging to Facility/ Agency Name: Address: Phone: Fax: Dialysis Facility (if applicable) Name: Address: Dialysis Schedule: Phone: Fax: [employer] Operator signature: {E-signature:10712} PHYSICIAN SECTION Name: Rosa Myers Prognosis: fair Condition at Discharge: stable Rehab Potential (if transferring to Rehab): fair Recommended Labs or Other Treatments After Discharge: Trach care with frequent suctioning, PEG tube care and feeding, wound management, HD per nephrology and follow up, finish cefepime and minocycline - stop date 06/21 evening doses. The individual is being admitted to a nursing facility directly from an [facility] or a unit of a [facility] that is not operated by or licensed by [facility] under section 5119.14 or 5160-3-15.1 5 The individual requires the level of services provided by a nursing facility for the condition for which he or she was treated in the hospital and, Physician Certification: I certify the above information and transfer of Rosa Myers is necessary for the continuing treatment of the diagnosis listed and that she requires long-term facility for less than 30 days. Update Admission H&P: No change in H&P PHYSICIAN SIGNATURE: documented in this encounter [facility] 06-14-2025 Note Pt tolerated procedu re well. Tunneled central line placed. Transfer pt to ICU. [facility] 06-14-2025 Note IR Procedures: Rosa is here from ICU for a tunneled central line placement. History, allergies, medications and lab results reviewed. Informed consent has been signed. Pt is on a monitor. Patient ready for the procedure. [facility] 06-14-2025 Consult note Associated Order (s): IP CONSULT TO GERIATRICS [facility] Geriatric Medicine Inpatient Consult Service Admission Date: 06/01/2025 Admission Status: INPATIENT Chief Complaint: Chief Complaint Patient presents with Other Sent from [facility] for low HGB, [facility]. Pt is trach/vent dependant, A&Ox2-3 per EMS. RT called to the bedside. Pt does daily hemodialysis through R chest wall cath Reason for Appointment Geriatrics consulted for Delirium Assessment & Plan Principal Problem: Anemia Active Problems: Anemia, unspecified type Moderate malnutrition (CMS/HCC) (HCC) Acute Metabolic Encephalopathy --Etiology likely acute illness (anemia, infection), hospital environment --Pulling at lines, hallucinating today. Patient calm at visit. --B12 1,032 check TSH --Encourage family visits and sleep hygiene --If agitated, assess for and consider treating for pain Consider scheduling Tylenol due to limited ability to communicate needs --QTc= check EKG today - QTC 552 ms in setting of LBBB --No antipsychotic due to QTc>500; if patient is danger to self/others/treatment consider low dose benzo use Recommend Lorazepam 0.25mg via peg every 8 hours as needed for agitation or anxiety Monitor for paradoxical agitation or worsening confusion. No adverse effects documented or reported after receiving Lorazepam 06/12. --Start PRN melatonin at HS --Monitor for constipation/urinary retention - last BM 06/12 loose --Possible medication contributions: Lorazepam, Morphine Depression Anxiety --Continue Fluoxetine 20mg daily --Continue Buspirone 5mg TID --Add Lorazepam for short term use while hospitalized Debility --lives at [facility] [facility]candelaria lift at baseline I spent total time of 60 minutes face to face with the patient and/or family discussing the diagnosis and importance of compliance with the treatment plan as well as documenting on the day of the visit. In addition, that total time includes the following: -Reviewing previous notes, -Reviewing labs, -Obtaining and/or reviewing separately obtained history, -Ordering prescription medications, tests and procedures, -Communicating results to the patient/family/caregiver, -Counseling/educating the patient/family/caregiver, -Documenting clinical information in the patients electronic record, and -Performing a medically appropriate exam and/or evaluation Subjective: HPI 75 y.o. year-old female with PMH of ESRD received HD, DM, tracheostomy and vent therapy, Peg tube, HLD, CAD s/p PCI with stent, polyneuropathy, CHF presented to the hospital from [facility] with complaints of anemia, Hgb 6.5. Admitted with acute on chronic anemia. Received 1 unit of PRBC. Treated for pleural effusion s/p thoracentesis. Has possible pneumonia and receiving antibiotics. There was a concern for a dialysis cath infection which was removed. Found to have cdiff and completed treatment on 06/12. Nursing documents today, patient hallucinating, seeing bugs on the ceiling. Pulling at lines. Received Ativan 0.5mg IV 06/12 2304 Receiving Morphine - last given 3 times on 06/12 Recently discharged from [facility], [place] 04/18/25. Discharge med list reviewed. Discharged on Prozac 10mg dialy. Nursing Delirium Screen (Nu-Desc): Nursing Delirium Symptom Checklist Total Score: 0 Conversation with patient: Patient calm, just returned from IR for tunneled cath. She mouths words, not speaking. States she is in [place], month May and year 2024. She shrugs her shoulders when asked if she is sleeping or if she has been seeing anything unusual. Conversation with caregiver: Nurse at [facility]. May have anxiety with frequency of suction. She wants to be suctioned frequently. She does not normally pull at things or get agitated. Advance Care Planning Code Status: Full Code Allergies[1] Current Medications[2] Medical History[3] Surgical History[4] Social History Tobacco Use Smoking status: Never Passive exposure: Past Smokeless tobacco: Never Substance Use Topics Alcohol use: Not on file Social History Social History Narrative Not on file Family History Family History[5] No family status information on file. Review of Systems Unable to perform ROS: Other (Has trach to vent. Shrugs shoulders with questions.) Functional Status Prior to Admission: (I: Independent, A: Assisted, D: Dependent) ADLs I A D Notes Bathing [] [] [x] Dressing [] [] [x] Toileting [] [] [x] Transfers [] [] [x] Feeding [] [] [x] Ambulation [] [] [x] Assistive devices: candelaria lift IADLs I A D Telephone [] [] [x] Transportation [] [] [x] Shopping [] [] [x] Meal prep [] [] [x] Housework [] [] [x] Medications [] [] [x] Finances [] [] [x] Objective: BP 156/74 Pulse 67 Temp 36.7 C (98.1 F) (Oral) Resp 15 Ht 5' 5" (1.651 m) Wt 229 lb 0.9 oz (104 kg) SpO2 100% BMI 38.12 kg/m Intake/Output Summary (Last 24 hours) at 06/14/2025 1712 Last data filed at 06/14/2025 0349 Gross per 24 hour Intake 1427 ml Output -- Net 1427 ml Wt Readings from Last 3 Encounters: 06/11/25 229 lb 0.9 oz (104 kg) Physical Exam Vitals reviewed. Constitutional: General: She is not in acute distress. HENT: Head: Normocephalic and atraumatic. Cardiovascular: Rate and Rhythm: Normal rate and regular rhythm. Pulmonary: Effort: Pulmonary effort is normal. Comments: Trach to Vent Abdominal: General: Bowel sounds are normal. There is no distension. Palpations: Abdomen is soft. Tenderness: There is no abdominal tenderness. Musculoskeletal: Right lower leg: No edema. Left lower leg: No edema. Neurological: Mental Status: She is alert. Comments: Oriented to person, place, month, year. Equal hand grasps moves LE Psychiatric: Attention and Perception: Attention normal. Mood and Affect: Mood normal. Behavior: Behavior is cooperative. Comments: Mouthing words Labs and Imaging: Recent Results (from the past 24 hours) POCT glucose meter Collection Time: 06/13/25 6:46 PM Result Value Ref Range Glucose 108 (H) 70 - 100 mg/dL POCT glucose meter Collection Time: 06/13/25 8:52 PM Result Value Ref Range Glucose 108 (H) 70 - 100 mg/dL POCT glucose meter Collection Time: 06/14/25 1:36 AM Result Value Ref Range Glucose 125 (H) 70 - 100 mg/dL CBC auto differential Collection Time: 06/14/25 4:02 AM Result Value Ref Range Auto WBC 5.6 3.6 - 10.7 10*3/uL RBC 3.21 (L) 3.80 - 5.20 10*6/uL Hemoglobin 8.5 (L) 11.7 - 16.0 g/dL Hematocrit 27.2 (L) 35.0 - 47.0 % MCV 84.7 77.0 - 99.0 fL MCH 26.5 26.0 - 34.0 pg MCHC 31.3 30.5 - 36.0 % RDW 18.0 (H) 11.5 - 15.0 % Platelets 222 140 - 440 10*3/uL MPV 9.8 9.0 - 12.7 fL nRBC 0.0 0.0 - 2.0 /100 WBCs Neutrophils Relative 65.9 38.0 - 82.0 % Lymphocytes Relative 16.8 15.0 - 45.0 % Monocytes Relative 12.1 5.0 - 13.0 % Eosinophils Relative 4.0 0.0 - 6.0 % Basophils Relative 0.7 0.0 - 2.0 % Immature Grans % 0.5 0.0 - 2.0 % Neutrophils Absolute 3.7 1.8 - 7.5 10*3/uL Lymphocytes Absolute 0.9 (L) 1.0 - 4.3 10*3/uL Monocytes Absolute 0.7 0.0 - 0.9 10*3/uL Eosinophils Absolute 0.2 0.0 - 0.5 10*3/uL Basophils Absolute 0.0 0.0 - 0.2 10*3/uL Immature Grans Absolute 0.0 <0.1 10*3/uL Comprehensive metabolic panel Collection Time: 06/14/25 4:02 AM Result Value Ref Range SODIUM 138 136 - 145 mmol/L POTASSIUM 3.5 3.5 - 5.1 mmol/L CHLORIDE 99 98 - 107 mmol/L CARBON DIOXIDE 28 23 - 31 mmol/L ANION GAP 11 3 - 13 mmol/L UREA NITROGEN 19 9 - 23 mg/dL CREATININE 1.93 (H) 0.57 - 1.11 mg/dL GLUCOSE 100 82 - 115 mg/dL CALCIUM 9.0 8.8 - 10.0 mg/dL AST (SGOT) 27 <34 U/L ALT 16 <30 U/L ALKALINE PHOSPHATASE 135 40 - 150 U/L ALBUMIN 2.3 (L) 3.4 - 4.8 g/dL BILIRUBIN, TOTAL 0.6 <1.2 mg/dL TOTAL PROTEIN 6.7 6.4 - 8.3 g/dL eGFR 26.4 (L) >60.0 mL/min/1.73m*2 Magnesium Collection Time: 06/14/25 4:02 AM Result Value Ref Range MAGNESIUM 1.9 1.6 - 2.6 mg/dL POCT glucose meter Collection Time: 06/14/25 5:47 AM Result Value Ref Range Glucose 126 (H) 70 - 100 mg/dL POCT glucose meter Collection Time: 06/14/25 11:08 AM Result Value Ref Range Glucose 161 (H) 70 - 100 mg/dL ECG 12 lead Collection Time: 06/14/25 4:38 PM Result Value Ref Range Heart Rate 63 bpm QRSD Interval 194 ms QT Interval 543 ms QTC Interval 552 ms P [place] 0 degrees QRS [place] -11 degrees T Wave [place] 188 degrees MA Interval 65 ms POCT glucose meter Collection Time: 06/14/25 4:47 PM Result Value Ref Range Glucose 100 70 - 100 mg/dL No results found for: "TSH" No components found for: "B12" No results found for: "VITD25" Reviewed: active problem list, medication list, allergies, social history, notes from last encounter, notes from last several encounters, lab results, imaging Follow-up: will follow with you Diana Zabala, RENITA - RENEE 06/14/25 5:12 PM [1] No Known Allergies [2] Current Facility-Administered Medications: acetaminophen (Tylenol) tablet 650 mg, 650 mg, Oral, q6h PRN, 650 mg at 06/13/252045 OR acetaminophen (Tylenol) suppository 650 mg, 650 mg, Rectal, q6h PRN, Sharyn Amaya MD albumin human 5 % IV solution 25 g, 25 g, IntraVENous, TID PRN, Rad Acosta MD albuterol (2.5 MG/3ML) 0.083% nebulizer solution 2.5 mg, 2.5 mg, Nebulization, q6h PRN, Neelima Hanks APRN - RENEE atorvastatin (Lipitor) tablet 40 mg, 40 mg, Per G Tube, Daily, Grzegorz Chatterjee MD, 40 mg at 06/14/25 0916 busPIRone (Buspar) tablet 5 mg, 5 mg, Per G Tube, TID, Grzegorz Chatterjee MD, 5 mg at 06/14/25 1634 carvedilol (Coreg) tablet 3.125 mg, 3.125 mg, Per G Tube, BID WC, Raine Etienne MD, 3.125 mg at 06/14/25 1634 cefepime (Maxipime) 1,000 mg in sodium chloride 0.9 % 50 mL IVPB, 1,000 mg, IntraVENous, q12h, Geno Waddell MD, Last Rate: 100 mL/hr at 06/14/25 1634, 1,000 mg at 06/14/25 1634 [START ON 06/15/2025] chlorhexidine (Hibiclens) 4 % solution, , Topical, Daily, Anjum Fam MD dextrose 5 % and sodium chloride 0.45 % bolus 500 mL, 500 mL, IntraVENous, TID PRN, Rad Acosta MD dextrose 5 % infusion, 100 mL/hr, IntraVENous, PRN, Sharyn Amaya MD, Stopped at 06/02/25 1757 dextrose 50 % solution 12.5 g, 12.5 g, IntraVENous, PRN, Sharyn Amaya MD, 12.5 g at 06/13/25 0524 epoetin jenn-epbx (Retacrit) injection 2,600 Units, 25 Units/kg, SubCUTAneous, Once per day on Wednesday, Mi Singh APRN - METALLURGIST HELPER, 2,600 Units at 06/13/25 1125 FLUoxetine (PROzac) capsule 20 mg, 20 mg, Per G Tube, Daily, Grzegorz Chatterjee MD, 20 mg at 06/14/25 0918 furosemide (Lasix) tablet 20 mg, 20 mg, Per G Tube, Daily, Grzegorz Chatterjee MD, 20 mg at 06/14/25 0916 glucagon (human recombinant) injection 1 mg, 1 mg, IntraMUSCular, PRN, Sharyn Amaya MD glucose oral gel 15 g, 15 g, Oral, PRN, Sharyn Amaya MD heparin injection 1,200-2,000 Units, 1,200-2,000 Units, IntraCATHeter, PRN, RENITA Clifford CNP, 1,400 Units at 06/11/25 1404 heparin injection 1,200-2,000 Units, 1,200-2,000 Units, IntraCATHeter, PRN, RENITA Clifford CNP, 1,400 Units at 06/11/25 1402 heparin injection 1,200-2,000 Units, 1,200-2,000 Units, IntraCATHeter, PRN, Yamil Newby MD heparin injection 1,200-2,000 Units, 1,200-2,000 Units, IntraCATHeter, PRN, Yamil Newby MD heparin injection 5,000 Units, 5,000 Units, SubCUTAneous, 2 times per day, Sharyn Amaya MD, 5,000 Units at 06/14/25 0916 insulin glargine (Lantus) injection 25 Units, 25 Units, SubCUTAneous, BID, Sharyn Amaya MD, 25 Units at 06/14/25 0918 Insulin Lispro (Humalog) injection 0-6 Units, 0-6 Units, SubCUTAneous, q6h, Grzegorz Chatterjee MD, 1 Units at 06/14/25 1202 ipratropium-albuterol (Duo-Neb) 0.5-2.5 mg/3 mL nebulizer solution 3 mL, 3 mL, Nebulization, q4h, RENITA Tyler CNP, 3 mL at 06/14/25 1551 melatonin tablet 3 mg, 3 mg, Per G Tube, Nightly PRN, RENITA Schwartz CNP miconazole (Micotin) 2 % powder, , Topical, BID, RENITA Gtz CNP, Given at 06/14/25 0918 midodrine (Proamatine) tablet 10 mg, 10 mg, Per G Tube, TID, Grzegorz Chatterjee MD, 10 mg at 06/13/252045 minocycline capsule 100 mg, 100 mg, Oral, BID, Kishore Wolff MD, 100 mg at 06/14/25915 morphine injection 1 mg, 1 mg, IntraVENous, q4h PRN, Geno Waddell MD, 1 mg at 06/12/252215 pantoprazole (ProtoNix) 40 mg in sodium chloride (PF) 0.9 % 10 mL injection, 40 mg, IntraVENous, Nightly, Grzegorz Chatterjee MD, 40 mg at 06/13/252045 polyethylene glycol (PEG) 3350 (Miralax) packet 17 g, 17 g, Oral, Daily PRN, Sharyn Amaya MD promethazine (Phenergan) tablet 12.5 mg, 12.5 mg, Oral, q6h PRN OR promethazine (Phenergan) injection 12.5 mg, 12.5 mg, IntraMUSCular, q6h PRN OR promethazine (Phenergan) suppository 12.5 mg, 12.5 mg, Rectal, q6h PRN, Sharyn Amaya MD sodium chloride 0.9 % infusion, 250 mL/hr, IntraVENous, PRN, Omid Orona MD sodium chloride 0.9 % infusion, 250 mL/hr, IntraVENous, PRN, Geno Waddell MD sodium chloride 0.9 % infusion, 250 mL/hr, IntraVENous, PRN, Tomy Hill MD sodium chloride 0.9% (NS) flush 10 mL, 10 mL, IntraCATHeter, q12h, Anjum Fam MD sodium chloride 0.9% (NS) flush 10 mL, 10 mL, IntraCATHeter, PRN, Anjum Fam MD sodium chloride 3 % hypertonic nebulizer solution 4 mL, 4 mL, Nebulization, BID, RENITA Tyler CNP, 4 mL at 06/14/25 0806 stomahesive in petrolatum (ET Mix), , Topical, PRN, RENITA Gtz METALLURGIST HELPER, Given at 06/08/25 1857 stomahesive in petrolatum (ET Mix), , Topical, 3 times per day, RENITA Gtz CNP, Given at 06/14/25 0137 [3] No past medical history on file. [4] No past surgical history on file. [5] No family history on file. Associated Order(s): IP CONSULT TO INFECTIOUS DISEASES Images from the original note were not included. [facility] - Infectious Diseases Attending Consult Note Reason for Consult: Pneumonia with pleural effusion, CDAD, infected HD catheter-s/p removal on 06/06/25. History of Present Illness: 75 y/o female was admitted on 06/01/25 with low hemoglobin (6.5), increased tracheal secretion, diarrhea and weakness; she was found to have C diff associated diarrhea; on 06/06/25, she was found to have redness on right chest HD catheter with tenderness and the catheter was removed, blood cxs were obtained on 06/07/25. She was seen, found her alert, sitting up on bed; c/o diarrhea but denied abdominal pain, she wanted frequent resp suction, she underwent left thoracentesis on 06/07, she appeared debilitated and ill. She has h/o chronic tracheostomy and on vent therapy, PEG tube feeding, ESRD on hemodialysis, hypertension, hyperlipidemia coronary artery disease status post PCI with stent in September 2023, type 2 diabetes mellitus with polyneuropathy, chronic CHF. She was examined; notes, labs, imaging were reviewed; treatment plan was discussed; clinical informations were documented in electronic record. Past Medical History: Medical History[1] Past Surgical History: Surgical History[2] Current Medications: Current Medications[3] Allergies: Allergies[4] Social History: Social History Socioeconomic History Marital status: Single Spouse name: Not on file Number of children: Not on file Years of education: Not on file Highest education level: Not on file Occupational History Not on file Tobacco Use Smoking status: Never Passive exposure: Past Smokeless tobacco: Never Substance and Sexual Activity Alcohol use: Not on file Drug use: Not on file Sexual activity: Not on file Other Topics Concern Not on file Social History Narrative Not on file Social Drivers of Health Financial Resource Strain: Patient Unable To Answer (03/08/2025) Received from [facility] [place] Overall Financial Resource Strain (CARDIA) Difficulty of Paying Living Expenses: Patient unable to answer Food Insecurity: Patient Unable To Answer (03/08/2025) Received from [facility] Medical Hunger Vital Sign Worried About Running Out of Food in the Last Year: Patient unable to answer Ran Out of Food in the Last Year: Patient unable to answer Transportation Needs: No Transportation Needs (06/01/2025) PRAPARE - Transportation Lack of Transportation (Medical): No Lack of Transportation (Non-Medical): No Physical Activity: Inactive (07/11/2024) Received from [facility] Exercise Vital Sign Days of Exercise per Week: 0 days Minutes of Exercise per Session: 0 min Stress: No Stress Concern Present (04/18/2025) Received from [facility] [place] [facility] Occup[facility] - Occupational Stress Questionnaire Feeling of Stress : Only a little Social Connections: Unknown (03/08/2025) Received from [facility] Medical Social Connection and Isolation Panel [NHANES] Frequency of Communication with Friends and Family: Patient unable to answer Frequency of Social Gatherings with Friends and Family: Patient unable to answer Attends Hinduism Services: Patient unable to answer Active Member of Clubs or Organizations: Patient unable to answer Attends Club or Organization Meetings: Patient unable to answer Marital Status: Intimate Partner Violence: Not At Risk (06/01/2025) Humiliation, Afraid, Rape, and Kick questionnaire Fear of Current or Ex-Partner: No Emotionally Abused: No Physically Abused: No Sexually Abused: No Recent Concern: Intimate Partner Violence - At Risk (03/07/2025) Received from [facility] Medical Domestic Abuse Assessment Do you feel safe in your relationships at home?: Yes Physical Abuse: Denies [facility] Domestic Abuse - Type of Abuse: Not on file [facility] Abuse - Time Frame: Not on file [facility] Domestic Abuse - Signs and Symptoms: Not on file Verbal Abuse: Denies Possible abuse reported to:: Other (Comment) Housing Stability: Low Risk (06/01/2025) Housing Stability Vital Sign Unable to Pay for Housing in the Last Year: No Number of Times Moved in the Last Year: 1 Homeless in the Last Year: No Family History: Family History[5] Review of Systems: Review of Systems Constitutional: Negative for fever. HENT: Negative for ear pain and sinus pain. Eyes: Negative for pain. Respiratory: Increased tracheal secretions, on vent Cardiovascular: Negative for chest pain. Gastrointestinal: Positive for diarrhea. Negative for abdominal pain. Endocrine: Negative for polydipsia. Genitourinary: Negative for dysuria. Musculoskeletal: Negative for arthralgias. Skin: Negative for color change. Neurological: Positive for weakness. Negative for headaches. Psychiatric/Behavioral: Negative for confusion. All other systems reviewed and are negative. Vitals: Patient Vitals for the past 24 hrs: BP Temp Temp src Pulse Resp SpO2 Height 06/07/25 1202 128/92 -- -- 61 -- 100 % -- 06/07/25 1130 119/61 -- -- 61 -- 100 % -- 06/07/25 1125 -- -- -- 61 -- 100 % -- 06/07/25 1124 119/61 -- -- 61 20 100 % -- 06/07/25 0902 -- -- -- 62 -- 100 % -- 06/07/25 0900 -- -- -- 65 -- 98 % -- 06/07/25 0858 -- -- -- 66 -- 99 % -- 06/07/25 0850 (!) 122 36.7 C (98 F) Oral 64 -- 99 % -- 06/07/25 0849 (!) 122/44 -- -- 66 -- -- -- 06/07/25 0839 -- -- -- -- -- -- 1.651 m (5' 5") 06/07/25256 -- -- -- 66 23 100 % -- 06/07/25252 -- -- -- 58 17 100 % -- 06/06/252241 -- -- -- 58 22 100 % -- 06/06/252237 -- -- -- 57 22 99 % -- 06/06/252041 128/55 37.6 C (99.6 F) Oral 62 18 99 % -- 06/06/252038 -- -- -- 72 -- 99 % -- 06/06/252033 -- -- -- 59 17 99 % -- 06/06/252001 (!) 125/48 -- -- 57 -- 100 % -- 06/06/25 1721 (!) 123/45 -- -- 64 -- -- -- 06/06/25 1713 -- -- -- 63 -- 100 % -- 06/06/25 1614 -- -- -- 61 -- 100 % -- 06/06/25 1613 -- -- -- 62 -- 100 % -- 06/06/25 1500 -- 36.8 C (98.2 F) Oral 57 -- 100 % -- 06/06/25 1400 -- -- -- 61 21 100 % -- Physical Exam: Physical Exam Vitals and nursing notes reviewed. Constitutional: Appearance: She is obese, debilitated and ill-appearing. HENT: Head: Normocephalic, without obvious abnormality, atraumatic. Neck: Trachea: Tracheostomy present. Comments: on vent Cardiovascular: Rate and Rhythm: Regular rhythm. Tachycardia present. Pulses: Normal pulses. Heart sounds: Normal heart sounds, S1 normal and S2 normal. Pulmonary: Effort: Pulmonary effort is normal. Breath sounds: Diminished breath sounds. Abdominal: Palpations: Abdomen is soft. non-tender, nondistended. Bowel sounds normal. Musculoskeletal: General: Swelling present. Skin: Comments: Multiple pressure wounds on the coccyx, sacrum and lower extremity Neurological: No focal deficits, cranial nerves grossly intact, sensations intact Psychiatric : Mood and effect normal , alert and oriented times 3. Labs: Recent Labs 06/05/2530506/06/2551306/07/25 0335 NA 137 134* 133* K 3.9 3.7 3.7 CL 100 98 96* CO2 27 26 26 BUN 18 30* 40* CREATININE 1.79* 2.79* 3.68* GLUCOSE 67* 145* 119* CALCIUM 8.9 9.0 9.4 PROT 6.7 6.5 6.8 BILITOT 0.7 0.5 0.6 ALKPHOS 119 113 123 AST 21 21 19 ALT 13 12 9 Recent Labs 06/05/2530506/06/25 0506/07/25 0335 WBC 5.7 5.9 7.4 HGB 7.6* 7.2* 7.5* HCT 24.8* 24.5* 24.4* PLT 234 197 234 Micro: No results for input(s): "COVID19" in the last 72 hours. 06/07/2025 1129 06/07/2025 1142 Aerobic and Anaerobic Culture with Stain [[id number]] Body Fluid from Pleural Cavity, Left In process Component Value No component results 06/07/2025 1129 06/07/2025 1142 Culture, Aerobic Bacteria with Gram Stain [[id number]] Body Fluid from Pleural Cavity, Left In process Component Value No component results 06/07/2025 1129 06/07/2025 1142 Anaerobic culture [[id number]] Body Fluid from Pleural Cavity, Left In process Component Value No component results 06/07/2025 1025 06/07/2025 1034 Blood culture Site #2 - Suspected Infection [[id number]] Blood, Venous In process Component Value No component results 06/07/2025 1014 06/07/2025 1035 Blood culture Site #1 - Suspected Infection [[id number]] Blood, Venous In process Component Value No component results 06/06/2025 1732 06/06/2025 1953 Respiratory culture and Stain [[id number]] (Abnormal) Sputum Preliminary result Component Value Respiratory culture Culture in progress P Gram Stain Result Many Polymorphonuclear leukocytes per low power field Abnormal P Rare Epithelial cells per low power field Abnormal P Moderate Gram negative bacilli Abnormal P Few Gram positive bacilli Abnormal P Rare Gram positive cocci Abnormal P 06/06/2025 1732 06/07/2025 1158 Pneumonia PCR Panel [[id number]] (Abnormal) Sputum Final result Component Value Staphylococcus aureus Not Detected Streptococcus agalactiae Not Detected Streptococcus pneumoniae Not Detected Streptococcus pyogenes Not Detected Haemophilus influenzae Not Detected Moraxella catarrhalis Not Detected Acinetobacter baumannii complex Not Detected Enterobacter cloacae complex Not Detected Escherichia coli Not Detected Klebsiella (Enterobacter) aerogenes Not Detected Klebsiella oxytoca Not Detected Klebsiella pneumoniae Not Detected Proteus spp Detected Abnormal Pseudomonas aeruginosa Detected Abnormal Serratia marcescens Detected Abnormal Chlamydia pneumoniae Not Detected Legionella pneumophila Not Detected Mycoplasma pneumoniae Not Detected Adenovirus Not Detected Coronavirus Not Detected Human Metapneumovirus Not Detected Human Rhinovirus/Enterovirus Not Detected Influenza A Not Detected Influenza B Not Detected Parainfluenza virus Not Detected Respiratory Syncytial Virus Not Detected 06/06/2025 1429 06/06/2025 1434 Culture, Cath Tip [[id number]] Foreign Body from Cannula In process Component Value No component results 06/02/2025 1736 06/02/2025 205 Gastrointestinal PCR Panel [[id number]] Stool from Per Rectum Final result Component Value Campylobacter Not Detected Plesiomonas shigelloides Not Detected Salmonella Not Detected Vibrio species Not Detected Vibrio cholerae Not Detected Yersinia enterocolitica Not Detected Enterotoxigenic E coli (ETEC) Not Detected Shiga toxin-producing E coli (STEC) Not Detected Shigella/Enteroinvasive E coli (EIEC) Not Detected Cryptosporidium Not Detected Cyclospora cayetanensis Not Detected Entamoeba histolytica Not Detected Giardia lamblia Not Detected Adenovirus F 40/41 Not Detected Astrovirus Not Detected Norovirus GI/GII Not Detected Rotavirus A Not Detected Sapovirus Not Detected 06/02/2025 17306/02/20251954 C. DIFFICILE by PCR with Reflex to EIA [[id number]] (Abnormal) Stool from Per Rectum Final result Component Value C. difficile toxin PCR Detected Abnormal 06/02/2025173506/02/2025 220 C. difficile Toxins EIA [[id number]] (Abnormal) Stool from Per Rectum Final result Component Value C difficile Toxins A+B, EIA Positive Abnormal Lines: Rt chest old HD cath site tender. Radiography/Echo/Other: US guided thoracentesis - In process [[id number]] Resulted: 06/07/25 1146 Order Status: Sent Updated: 06/07/251146 This result has not been signed. Information might be incomplete. XR chest 1 view [[id number]] Collected: 06/06/252039 Order Status: Completed Updated: 06/06/252042 Narrative: Patient Name: ROSA MYERS : 1950 Exam Date/Time: 06/06/2025 19:54 Procedure: XR CHEST 1 VIEW Ordering Provider: WADDELL CANDICE Reason For Exam: increased secretions INDICATION: Increased secretions. Tunneled dialysis catheter removal same day. VIEWS: Portable AP upright chest COMPARISON: 06/01/2025 FINDINGS: A tracheostomy overlies the midline. The trachea is midline. The cardiomediastinal silhouette is mildly enlarged. The lung volumes are low. There is mild thickening of the interstitium. Bilateral layering pleural effusions are present. Impression: 1. Interval increase in bilateral layering pleural effusions. 2. Interval increase in interstitial edema and/or infiltrates. Report Dictated on Electronically Signed By: Cindy Joyner MD Electronically Signed Date/Time: 06/06/2025 8:41 PM EDT IR CVC tunneled catheter removal [[id number]] Collected: 06/06/251545 Order Status: Completed Updated: 06/06/251546 Narrative: [facility] 1950 [id number] Exam Date/Time: 06/06/2025 14:01 Procedure: IR CVC TUNNELED CATHETER REMOVAL Ordering Provider: WADDELL CANDICE Reason For Exam: erythema and redness EXAMINATION: Tunneled dialysis catheter removal. EXAM DATE & TIME: 06/06/2025 2:01 PM EDT INDICATION: erythema and redness ADDITIONAL INFORMATION: 75-year-old female with clinical suspicion for line infection presents for removal COMPARISON: None INFORMED CONSENT: Written informed consent was obtained. The procedure, risks, benefits, and alternatives were discussed. All questions were answered. While not present during the procedure, Dr. Fam was immediately available to furnish services throughout the procedure. TIMEOUT: Timeout was conducted documenting correct patient, procedure, site, fire risk, antibiotics and allergies. COMPLICATIONS: None. ESTIMATED BLOOD LOSS: Less than 10 mL. MEDICATIONS: Antibiotics: None. Contrast dose: None. STERILE TECHNIQUE: All elements of maximal sterile technique were applied: cap, mask, sterile gown, proper hand hygiene including sterile gloves, a large sterile sheet, and hospital-approved cutaneous antisepsis at the site (2% chlorhexidine). ANESTHESIA/SEDATION: Local. PROCEDURE/TECHNIQUE: The patient was placed in the supine position on the procedural table. The skin surrounding the right chest tunneled dialysis catheter was prepped and draped in the usual aseptic fashion. Local anesthesia was achieved with 1% lidocaine solution. Using a combination of blunt dissection and gentle traction, the catheter was removed in its entirety. A sterile dressing was applied. The patient tolerated the procedure well without immediate complication and was transferred from the interventional suite in stable condition. FINDINGS: No images were obtained during catheter removal. Impression: Technically successful uncomplicated removal of right chest tunneled dialysis catheter in its entirety. Report Dictated on Electronically Signed By: Anjum Fam MD Electronically Signed Date/Time: 06/06/2025 3:46 PM EDT XR chest 1 view [[id number]] Collected: 06/01/25 1217 Order Status: Completed Updated: 06/01/25 1220 Narrative: [facility] 1950 [id number] Exam Date/Time: 06/01/2025 11:50 Procedure: XR CHEST 1 VIEW Ordering Provider: ORONA KEVIN Reason For Exam: ABDOMINAL PAIN; dyspnea CHEST X-RAY AP CLINICAL INDICATION: Dyspnea AP radiograph of the chest was obtained. COMPARISON: None FINDINGS: Right-sided tunneled dialysis catheter line with its tip overlying the expected SVC location. The cardiac silhouette is within normal limits. Findings consistent with pulmonary edema/vascular congestion. Bilateral pleural effusions with associated atelectasis/consolidative changes. Thoracic spine degenerative changes. Impression: Findings consistent with pulmonary edema/vascular congestion. Bilateral pleural effusions with associated atelectasis/consolidative changes. Report Dictated on Electronically Signed By: ePter Melvin MD Electronically Signed Date/Time: 06/01/2025 12:19 PM EDT Antimicrobials,Start/End Dates: Cefep 06/07- Fidaxo 06/03- Impression: Pneumonia with pleural effusion. CDAD. Infected HD catheter-s/p removal of cath on 06/06/25. Chronic respiratory failure, Ventilator dependence. Trach and PEG. ESRD, on HD. Plan: Pt sick due to multiple infectious processes, including pneumonia due to Pseudomonas aeruginosa, Serratia marcescens, and Proteus spp. She is trached and vent dependent, requiring frequent suctions. Await sputum and pleural fluid cx results. Still having diarrhea. Infected HD cath was removed on 06/06, await blood cx results. She is afebrile, hemodynamically ok. Continue cefepime and fidaxomicin. High level complexity medical decision making. Will follow. Thank you. Total time of 75 minutes on this day of encounter spent on, but not limited to review of tests, medical records , complex history , review of external medical records, paper and electronic, counseling and education (patient, family member, caregiver), ordering medications, tests, and procedures, communication with other health care professions, independent interpretation of tests, care coordination, arrangement of outpatient antimicrobial therapy, post-hospitalization therapy and follow-up, and counseling for risks, benefits, and consideration of use of antimicrobials. [1] No past medical history on file. [2] No past surgical history on file. [3] Current Facility-Administered Medications Medication Dose Route Frequency Provider Last Rate Last Admin acetaminophen (Tylenol) tablet 650 mg 650 mg Oral q6h PRN Sharyn Amaya MD Or acetaminophen (Tylenol) suppository 650 mg 650 mg Rectal q6h PRN Sharyn Amaya MD albumin human 5 % IV solution 25 g 25 g IntraVENous TID PRN Rad Acosta MD albuterol (2.5 MG/3ML) 0.083% nebulizer solution 2.5 mg 2.5 mg Nebulization q6h PRN Neelima Hanks APRN - METALLURGIST HELPER atorvastatin (Lipitor) tablet 40 mg 40 mg Per G Tube Daily Grzegorz Chatterjee MD 40 mg at 06/07/25 0849 busPIRone (Buspar) tablet 5 mg 5 mg Per G Tube TID Grzegorz Chatterjee MD 5 mg at 06/07/25 0848 carvedilol (Coreg) tablet 3.125 mg 3.125 mg Per G Tube BID WC Grzegorz Chatterjee MD 3.125 mg at 06/07/25 0849 cefepime (Maxipime) 1,000 mg in sodium chloride 0.9 % 50 mL IVPB 1,000 mg IntraVENous q12h Geno Waddell MD Stopped at 06/07/25 0750 dextrose 5 % and sodium chloride 0.45 % bolus 500 mL 500 mL IntraVENous TID PRN Rad Acosta MD dextrose 5 % infusion 100 mL/hr IntraVENous PRN Sharyn Amaya MD Stopped at 06/02/25 1757 dextrose 50 % solution 12.5 g 12.5 g IntraVENous PRN Sharyn Amaya MD fidaxomicin (Dificid) tablet 200 mg 200 mg Per G Tube BID Grzegorz Chatterjee MD 200 mg at 06/07/25 0848 FLUoxetine (PROzac) capsule 20 mg 20 mg Per G Tube Daily Grzegorz Chatterjee MD 20 mg at 06/07/25 0849 furosemide (Lasix) tablet 20 mg 20 mg Per G Tube Daily Grzegorz Chatterjee MD 20 mg at 06/07/25 0849 glucagon (human recombinant) injection 1 mg 1 mg IntraMUSCular PRN Sharyn Amaya MD glucose oral gel 15 g 15 g Oral PRN Sharyn Amaya MD heparin injection 1,200-2,000 Units 1,200-2,000 Units IntraCATHeter PRN RENITA Clifford CNP 1,600 Units at 06/04/25 1923 heparin injection 1,200-2,000 Units 1,200-2,000 Units IntraCATHeter PRN RENITA Clifford CNP 1,600 Units at 06/04/25 192 heparin injection 5,000 Units 5,000 Units SubCUTAneous 2 times per day Sharyn Amaya MD 5,000 Units at 06/07/25 0849 insulin glargine (Lantus) injection 25 Units 25 Units SubCUTAneous BID Sharyn Amaya MD 25 Units at 06/07/25 0849 Insulin Lispro (Humalog) injection 0-6 Units 0-6 Units SubCUTAneous q6h Grzegorz Chatterjee MD 1 Units at 06/06/25 1230 ipratropium-albuterol (Duo-Neb) 0.5-2.5 mg/3 mL nebulizer solution 3 mL 3 mL Nebulization q4h RENITA Tyler CNP 3 mL at 06/07/25 1300 miconazole (Micotin) 2 % powder Topical BID RENITA Gtz CNP 1 Application at 06/07/25 0850 midodrine (Proamatine) tablet 10 mg 10 mg Per G Tube TID Grzegorz Chatterjee MD 10 mg at 06/07/25 0849 morphine injection 1 mg 1 mg IntraVENous q4h PRN Geno Waddell MD 1 mg at 06/07/25 0950 pantoprazole (ProtoNix) 40 mg in sodium chloride (PF) 0.9 % 10 mL injection 40 mg IntraVENous Nightly Grzegorz Chatterjee MD 40 mg at 06/06/252051 polyethylene glycol (PEG) 3350 (Miralax) packet 17 g 17 g Oral Daily PRN Sharyn Amaya MD promethazine (Phenergan) tablet 12.5 mg 12.5 mg Oral q6h PRN Sharyn Amaya MD Or promethazine (Phenergan) injection 12.5 mg 12.5 mg IntraMUSCular q6h PRN Sharyn Amaya MD Or promethazine (Phenergan) suppository 12.5 mg 12.5 mg Rectal q6h PRN Sharyn Amaya MD sodium chloride 0.9 % infusion 250 mL/hr IntraVENous PRN Omid Orona MD sodium chloride 0.9 % infusion 250 mL/hr IntraVENous PRN Geno Waddell MD sodium chloride 3 % hypertonic nebulizer solution 3 mL 3 mL Nebulization BID Neelima Hanks APRN - METALLURGIST HELPER 3 mL at 06/07/25 0900 stomahesive in petrolatum (ET Mix) Topical PRN Patrica Weinstein APRN - RENEE stomahesive in petrolatum (ET Mix) Topical 3 times per day Patrica Weinstein APRN - RENEE Given at 06/07/25 0558 [4] No Known Allergies [5] No family history on file. Associated Order(s): INPATIENT CONSULT TO WOUND CARE PROVIDERS Images from the original note were not included. [facility] Wound Care CONSULT Note Rosa Myers AGE: 75 y.o. GENDER: female : 1950 Subjective: HISTORY of PRESENT ILLNESS HPI Rosa Myers is a 75 y.o. female who presents for a wound consult. HPI: 75 y.o. female who presents to the emergency department with chief complaint of abnormal blood counts. [facility] that shows hemoglobin of 6.5. Patient has chronic renal failure, per her nursing notes receives dialysis Wednesday through Wednesday at her facility. Patient has tracheostomy in place for chronic respiratory failure, PEG tube in place. Patient is able to answer questions by nodding her head yes and no but somewhat limited history due to tracheostomy in place. Admitted for anemia and chronic renal failure. She is currently admitted to ICU. Wound Care consulted for multiple wounds - coccyx, groin, nose, feet and left leg. Patient resting in bed at time of visit. RN assisting with turning patient to assess coccyx. PAST MEDICAL HISTORY Medical History[1] PAST SURGICAL HISTORY Surgical History[2] FAMILY HISTORY Family History[3] SOCIAL HISTORY Social History[4] ALLERGIES Allergies[5] MEDICATIONS Medications Ordered Prior to Encounter[6] REVIEW OF SYSTEMS Pertinent items are noted in HPI. Objective: BP 127/80 Pulse 59 Temp 36.9 C (98.4 F) Resp 18 Ht 5' 5" (1.651 m) SpO2 100% PHYSICAL EXAM General appearance: in no apparent distress, well developed and well nourished, in no respiratory distress and acyanotic, alert, and cooperative Skin: warm and dry Nose - 1.0 x 0.8 x 0.1cm - thin red dry tissue noted with no drainage, jaleesa wound tissue intact Forehead - 1.0 x 2.0 x 0.1cm - wound bed with thin pink dry eschar, no drainage, jaleesa wound tissue intact 06/04/25 Pulmonary: NAD, trached Abdomen: soft, nontender, and nondistended Extremities: warm and dry Left heel -1.0 x 1.0 x 0.0cm - thin red, dry scab noted, no drainage, jaleesa wound tissue with peeling tissue 06/04/25 Right abdominal skin fold - erosion of tissue noted with superficial pink tissue, no drainage, jaleesa wound tissue fragile/peeling 06/04/25 Sacrum - 1.0 x 1.0 x 0.1cm - pink tissue loss within gluteal cleft region, jaleesa wound tissue fragile and peeling, no drainage noted 06/04/25 Right medial thigh - 1.0 x 1.5 x 0.1cm - wound bed with large pink tissue and small yellow tissue in a linear pattern, jaleesa wound tissue intact, fragile, scant serosang drainage 06/04/25 LABS CBC: Lab Results Component Value Date WBC 6.2 06/04/2025 HGB 7.4 (L) 06/04/2025 HCT 23.8 (L) 06/04/2025 MCV 82.6 06/04/2025 PLT 247 06/04/2025 BMP: Lab Results Component Value Date NA 130 (L) 06/04/2025 K 3.4 (L) 06/04/2025 CL 93 (L) 06/04/2025 CO2 26 06/04/2025 BUN 43 (H) 06/04/2025 CREATININE 3.51 (H) 06/04/2025 PT/INR: No results found for: "PROTIME", "INR" Prealbumin: No results found for: "PREALBUMIN" Albumin:No components found for: LABALBU Sed Rate:No results found for: SEDRATE Micro: No components found for: BC Assessment/Plan: Nursing staff to perform dressing change: Forehead stage 2 pressure injury: Nose Stage 2 pressure injury (POA): -cleanse with soap and water, pat dry, leave STAFF HOME THERAPY RN daily and PRN Left heel Stage 2 pressure injury (POA): -cleanse with NS, apply skin barrier wipe, leave PRAVEEN daily and PRN Right/Left abdominal skin fold - Fungal: -cleanse with soap and water and dry thoroughly, apply Miconazole powder, leave STAFF HOME THERAPY RN BID and PRN Sacral Stage 3 pressure injury(POA): Sacral MASD d/t friction/fluids: Right medial thigh - stage 3 Pressure injury (POA): -cleanse with soap and water, apply ET mix TID and PRN, leave PRAVEEN -continue ICU bed -Q2hr/PRN turns -glide sheets for T&R -continence checks Q1-2 Hrs/PRN Nutritional support Wound Care to follow Recommend to follow up at [facility] wound [facility] center after hospital discharge. Any questions or concerns please secure chat "[facility] wound/ostomy". Thank you for the consult! I personally obtained the soto and critical portions of the history and physical exam. I reviewed the labs, imaging studies, and electronic medical record. I reviewed the chart documentation and discussed the patient with treatment team members. I have edited the note to reflect my clinical findings and my assessment and plan. Please note, the time of this note does not reflect the time I saw this patient today, but the time of this documentaton. Portions of this note including HPI, ROS, impression/plan, and examination may have been copied forward from admission to today as to provide important historical information essential in contributing to medical decision making. Documentation has been reviewed and edited as necessary to support clinical decision making for today's visit and to reflect my own independent evaluation of this patient. Decision making for today's visit and to reflect my own independent evaluation of this patient. [1] No past medical history on file. [2] No past surgical history on file. [3] No family history on file. [4] Social History Tobacco Use Smoking status: Never Passive exposure: Past Smokeless tobacco: Never [5] No Known Allergies [6] No current facility-administered medications on file prior to encounter. Current Outpatient Medications on File Prior to Encounter Medication Sig Dispense Refill atorvastatin (Lipitor) 40 MG tablet Take 40 mg by mouth daily. Via PEG busPIRone (Buspar) 5 MG tablet Take 5 mg by mouth 3 times daily. carvedilol (Coreg) 12.5 MG tablet Take 12.5 mg by mouth 2 times daily. Hold before dialysis FLUoxetine (PROzac) 20 MG/5ML solution Take 20 mg by mouth daily. Via PEG furosemide (Lasix) 20 MG tablet Take 20 mg by mouth daily. Via PEG, given on wed/Wednesday for weight gain insulin glargine (Lantus) 100 UNIT/ML injection Inject 25 Units under the skin 2 times daily. Insulin Lispro (Humalog) 100 UNIT/ML solution injection Inject 2-12 Units under the skin 3 times daily (with meals). Sliding scale: 150-200 = 2 units, 102-250 = 4 units, 251-300 = 6 units, 301-350 = 8 units, 351-400 = 10 units, 401-450 = 12 units midodrine (Proamatine) 10 MG tablet Take 10 mg by mouth 3 times daily. Via PEG, given M-F 1hr prior to dialysis pantoprazole (ProtoNix) 20 MG EC tablet Take 20 mg by mouth every morning (before breakfast). Do not crush, chew, or split. Petrolatum ointment Apply 1 Application topically 2 times daily as needed (forehead itching). Cosigned by Miguel Barraza DO at 06/11/2025 4:05 PM EDT Associated Order(s): IP CONSULT TO [place] [facility] PULMONARY CONSULTATION NOTE. 06/04/25 CONSULTING PHYSICIAN: Dr Chatterjee. [facility]AS[facility] REFERRAL: [facility] Assessment- Chronic respiratory failure Ventilator dependence Trach dependence. History of BL pleural effusions, transudate requiring thoracentesis in the past. Volume overload, ESRD with pulmoanry edema Anemia Recommendations- Continue AC/VC at current settings. Attempted PSV for 15 minutes, patient became anxious as dyspneic, and RR went to 28 and was placed back on previous settings. Unclear of settings at [facility] but appears to be vent dependent. Weaning likely limited by volume status, deconditioning, anemia and numerous co-morbidities. OK to send back to [facility] from pulmonary standpoint Thank you very much for this consultation, we will follow along closely with you. History of Present Illness This is a 75 y.o. with numerous comorbidities admitted from her extended care facility due to anemia. Patient was found to have a hemoglobin of 6 and was admitted for further workup/evaluation. Patient is a chronic trach to vent. Per patient she is on vent 19/04. Resides at [facility]. Interestingly in review of records in care everywhere, she was supposed to be on vent at night PSV and HELADIO day back when she was at [facility] several months ago. Patient denies acute respiratory complaints. Past Medical History Medical History[1] Past Surgical History Surgical History[2] Allergies Allergies[3] Medications Medication Documentation Review Audit Reviewed by Vashti Kilgore RN (Registered Nurse) on 06/01/25 at 1557 Medication Order Taking? Sig Documenting Provider Last Dose Status atorvastatin (Lipitor) 40 MG tablet [id number] Take 40 mg by mouth daily. Via PEG Historical Provider, Active busPIRone (Buspar) 5 MG tablet [id number] Take 5 mg by mouth 3 times daily. Historical Provider, Active carvedilol (Coreg) 12.5 MG tablet [id number] Take 12.5 mg by mouth 2 times daily. Hold before dialysis Historical Provider, Active FLUoxetine (PROzac) 20 MG/5ML solution [id number] Take 20 mg by mouth daily. Via PEG Mynor Roca MD Active furosemide (Lasix) 20 MG tablet [id number] Take 20 mg by mouth daily. Via PEG, given on wed/Wednesday for weight gain Mynor Roca MD Active insulin glargine (Lantus) 100 UNIT/ML injection [id number] Inject 25 Units under the skin 2 times daily. Mynor Roca MD Active Insulin Lispro (Humalog) 100 UNIT/ML solution injection [id number] Inject 2-12 Units under the skin 3 times daily (with meals). Sliding scale: 150-200 = 2 units, 102-250 = 4 units, 251-300 = 6 units, 301-350 = 8 units, 351-400 = 10 units, 401-450 = 12 units Mynor Roca MD Active midodrine (Proamatine) 10 MG tablet [id number] Take 10 mg by mouth 3 times daily. Via PEG, given M-F 1hr prior to dialysis Mynor Roca MD Active pantoprazole (ProtoNix) 20 MG EC tablet [id number] Take 20 mg by mouth every morning (before breakfast). Do not crush, chew, or split. Mynor Roca MD Active Petrolatum ointment [id number] Apply 1 Application topically 2 times daily as needed (forehead itching). Mynor Roca MD Active Social History Social History Tobacco Use Smoking status: Never Passive exposure: Past Smokeless tobacco: Never Substance Use Topics Alcohol use: Not on file Family History Family History[4] Review of Systems Review of Systems Unable to assess given trach to vent status. Physical Exam Vitals: 06/04/25 0827 06/04/25 0857 06/04/25 1000 06/04/25 1308 BP: (!) 119/49 (!) 111/39 BP Location: Patient Position: Pulse: 57 57 56 51 Resp: 15 16 14 14 Temp: TempSrc: SpO2: 100% 100% 100% 100% Height: General appearance: chronically ill appearing, alert, no converstional dyspnea, obese. Head: Normocephalic, without obvious abnormality, atraumatic Lungs: Diminished on MV Heart: RRR, S1, S2 normal, no murmur, click, rub or gallop Abdomen: soft, non-tender, nondistended. Bowel sounds normal Extremities: extremities normal, atraumatic, no cyanosis, edema Musculoskeletal - No deformities Skin: Skin color, texture, turgor normal. No rashes or lesions Neurological: No focal deficits, cranial nerves grossly intact, sensations intact Psychiatric : Mood and effect normal , alert and oriented times 4 LABS and Studies: Objective: Vital signs: (most recent): Blood pressure (!) 111/39, pulse 51, temperature 37 C (98.6 F), resp. rate 14, height 5' 5" (1.651 m), SpO2 100%. CBC: Recent Labs 06/02/25 0506/03/2541806/04/25431 WBC 5.1 6.1 6.2 HGB 7.4* 7.2* 7.4* HCT 23.7* 23.3* 23.8* PLT 231 229 247 BMP: Recent Labs 06/02/25 0506/03/2541806/04/25431 NA 137 131* 130* K 3.1* 3.3* 3.4* CL 98 95* 93* CO2 28 27 26 BUN 20 31* 43* CREATININE 1.57* 2.39* 3.51* GLUCOSE 94 145* 147* CALCIUM 8.8 8.7* 9.0 MG 2.0 2.0 2.1 HEPATIC: Recent Labs 06/02/25 0506/03/2541806/04/25431 AST 23 27 19 ALT 10 11 11 BILITOT 1.1 0.8 0.7 ALKPHOS 129 130 130 Cultures: None Radiology: chest X-ray (personally reviewed and interpreted by me show) volume overlaod and trach tube in good position PFT's Pulmonary Functions Testing Results: None in EPIC Leyda Chin MD 1:21 PM 06/04/25 Pulmonary and Critical Care Medicine Attending [1] No past medical history on file. [2] No past surgical history on file. [3] No Known Allergies [4] No family history on file. Associated Order(s): IP CONSULT TO DIETITIAN Nutrition Assessment Type and Reason for Visit: Initial, Consult (Tube Feeding) Nutrition Recommendations/Plan: Remains NPO with PEG for primary source of nutrition, ordered EN per MNT protocol: Nepro CarbSteady @ 45 mL/hr goal rate Which will provide: 1912 kcal, 87 g protein, 785 mL free water --> 33.5 kcal and 1.52 g protien/kg IBW Obtain daily actual bed scale weights for most accurate anthropometric data and calculation of macronutrient and fluid needs RDN to continue to monitor weekly: fluid accumulation, weight, skin integrity, trends in lab values, tolerance of EN, clinical status, discharge planning. Malnutrition Assessment: Malnutrition Status: Moderate malnutrition Context: Chronic Illness Findings of the 6 clinical characteristics of malnutrition: Energy Intake: No significant decrease in energy intake (EN meeting patinet needs at [facility] and) Weight Loss: Mild weight loss (specify amount and time period) (-6.6% weight loss over six months per EMR) Body Fat Loss: Mild body fat loss Buccal region, Orbital Muscle Mass Loss: Mild muscle mass loss Clavicles (pectoralis & deltoids), Temples (temporalis), Thigh (quadraceps) Fluid Accumulation: Severe Extremities Boom Supervisor Strength: Normal photo mask cleaner strength Nutrition Assessment: 75 year old woman with PMHx: CHD, HLD, HTN, DMII(A1C=6.5% 12/18/24), ESRD (Wednesday through Wednesday HD at SNF). She was admitted to [facility] with progressive dyspnea, required lasix GTT and GDMT. Required intubation as she did not tolerate NIV support. S/p PEG placement on 02/21 and tracheostomy placement 02/27/2025 as she continued to fail SBTs with tachypnea and low tidal volumes. Seen by nephrology for underlying cardiorenal acute on chronic renal failure. Course was further complicated by C. Difficile (+vancomycin), completed zosyn course for possible UTI. MRSA/MSSA (+) left leg wound. She was transferred to [facility] on 03/07/2025. During stay at [facility] slowly weaning vent support, +Recurrent bilateral pleural effusions. s/p right thoracentesis on 03/21 with -1300 mL removed. s/p left thoracentesis on 03/22 with -600 mL removed. Repeated right thoracentesis on 04/05 with -1175 mL removed. Completed vancomycin for CDiff on 04/01, and started on nystatin through 04/21 for oral candidiasis. She worked with MANAGER PE during admit to [facility] and used the [place] Speaking Valve, remains NPO with all nutrition via PEG (Vital High Protein @ 60 mL/hr rate with Banatrol for loose stooling). She was on a MWF HD schedule and tolerated well. Transferred from [facility] to [facility] on 04/18/25 post HD. She currently presents to [facility] ED from [facility] with anemia noted during blood draw., Hgb(6.5). Significant labs on admit: Hgb(7.1), Hct(23), Na+(134), BUN(41), Creatinine(2.34), C.Ca++(10.84). +1 U PRBC in ED with improvement in Hgb to 7.8. Admitted for workup. Nephrology consulted, patient did not receive HD on 06/01. Underwent iHD on evening of 06/01 with 3500 mL removed and tolerated well. Resting in bed at time of assessment pleasant and interactive. Denies: pain, nausea, GI distress. +EN @ 25mL/hr. NFPE completed with consent Estimated Daily Nutrient Needs: Energy Requirements Based On: Kcal/kg Weight Used for Energy Requirements: [place] Weight for Energy Calculation (kg): 57 kg Total Energy Requirements (kcals/day): 6760-8227 (25-30 kcal/kg IBW) Weight Used for Protein Requirements: [place] Weight in Kg Used for Protein Requirements: 57 kg Estimated Total Protein (g/day): 68-97 (1.2-1.7 g protein/kg IBW) Estimated Daily Total Fluid (ml/day): per MD Nutrition Related Findings: A+Ox4. Nod and shakes head, communicates. +Trach to vent. +nonpitting BLE edema noted. Tyler score=13 with pending wound care consult. +bm. Meds and labs reviewed. Wound Type: Multiple, Wound Consult Pending (+Abrasion to nose and forehead, +dry legs with flaking skin) Current Nutrition Therapies: Diet, tube feeding no tray PEG; Nepro w/CARB Steady; Continuous; Yes; 10; Q 4 Hours; 25; 45 Current Oral Intake Average Meal Intake: NPO Average Supplements Intake: NPO Enteral Nutrition Feeding Route: PEG EN Formula: Nepro w/CARBSTEADY EN Schedule: Continuous EN Feeding Regimen: Nepro CarbSteady @ 45 mL/hr Additives/Modulars: None Water Flushes: 100 mLQ4H Current EN & Flush Order Provides: Nepro CarbSteady @ 25 mL/hr Goal EN & Flush Order Provides: Nepro CarbSteady @ 45 mL/hr to provide: 1912 kcal, 87 g protein, 785 mL free water --> 33.5 kcal and 1.52 g protien/kg IBW Anthropometric Measures: Height: 165.1 cm (5' 5") Current Body Weight: 103 kg (226 lb) Weight Source: Other (Comment) (05/25/25 at [facility]) Admission Body Weight: 103 kg (226 lb) (noted 05/25 at [facility]) Usual Body Weight: 110 kg (242 lb) (per EMR--> 242# 11/27/24; 220# (bed) 03/07/25; 209.7# 04/02/25; 226# 05/25/25) % Weight Change (Calculated): -6.6 [place] Body Weight (lbs) (Calculated): 125 lbs [place] Body Weight (Kg) (Calculated): 57 kg % [place] Body Weight (Calculated): 180.8 % BMI (kg/m2) (Calculated): 37.6 Weight Adjustment For: No Adjustment BMI Categories: Obese Class 2 (BMI 35.0 -39.9) Nutrition Diagnosis: Moderate malnutrition, In context of chronic illness related to increase demand for energy/nutrients as evidenced by mild loss of subcutaneous fat, mild muscle loss Altered GI function related to altered GI structure as evidenced by nutrition support - enteral nutrition Nutrition Interventions: Nutrition Education/Counseling: Education not indicated Coordination of Nutrition Care: Continue to monitor while inpatient Plan of Care discussed with: RN and patient Goals: Previous Goal Met: Progressing toward Goal(s) Goals: Tolerate nutrition support at goal rate Nutrition Monitoring and Evaluation: Behavioral-Environmental Outcomes: None Identified Food/Nutrient Intake Outcomes: Enteral Nutrition Intake/Tolerance Physical Signs/Symptoms Outcomes: Biochemical Data, Nausea or Vomiting, Weight, Nutrition Focused Physical Findings, Skin, Meal Time Behavior, Hemodynamic Status, Fluid Status or Edema Discharge Planning: Enteral Nutrition Raquel Brady RDN, LDN, Contact: *[phone] documented in this encounter [facility] 06-12-2025 Note Pt tolerated procedu re well. Will transfer back to nsg unit. [facility] 06-08-[address] [facility] 06-08-2025 Procedure note Associated Ord er(s): HEMODIALYSIS INPATIENT Patient Name: Rosa Myers Patient : 1950 Acct: [id number] Date of Admission: 06/01/2025 Room/Bed: 222-04/222-04 A Code Status: Full Code Allergies: Allergies[1] Diagnosis: Problem List[2] Treatment: Hemodialysis 1:1 Priority: Routine Location: ICU Diabetic: Yes NPO: Yes Isolation Precautions: Contact Consent for Treatment Verified: Yes Blood Consent Verified: Not Applicable ICEBOAT: Identify, Consent, Equipment, HepB Status, Orders Complete, Access Verified, Timeliness Second Clinician Verifying: Adam Doss RN Time out performed prior to access at 1350. Report Received from Primary RN at 1200. Primary RN (First Initial, Last Name, Title): Adam Doss RN Incapacitated Nurse Education Completed: Yes JEAN MARIE HBsAg ONLY: Date Drawn: June 02, 2025 Results: Negative HBsAb: Date Drawn: June 02, 2025 Results: Susceptible <10 Order Dialyzer: Nipro Na+ Modeling: Not Applicable Dialysate Temperature (C): 36 Blood Flow Rate (BFR): 400 Dialysate Flow Rate (DFR): 600 Access to be Utilized Access: Non-tunneled Catheter Location: Internal Jugular Side: Right Needle gauge: Not Applicable + Bruit/Thrill: Not Applicable First Use X-ray Verified: Yes OK to use line order: Yes Site Assessment: Signs and Symptoms of Infection/Inflammation: None If yes: Not Applicable Dressing: Dry and Intact Site Prep: Medical Aseptic Technique Dressing Changed this Treatment: Yes If yes, by whom: Special Procedures Date of Last Dressing Change: June 08, [address]?: Yes Red Alcohol Caps in place?: Yes Gauze Dressing?: No Non-Dialysis Use?: No Comment: Flows: Lines Reversed and Good If access problem, who was notified: Pre and Post-Assessment Patient Vitals for the past 8 hrs: Level of Consciousness Respiratory Pattern O2 Device Bilateral Breath Sounds Skin Color Skin Condition/Temp Abdomen Inspection Bowel Sounds (All Quadrants) Edema Generalized Edema RUE Edema LUE Edema RLE Edema LLE Edema Pre-Hemodialysis Comments 06/08/25 1215 -- -- -- Clear -- -- Soft;Rounded Active -- -- None None None None -- 06/08/25 1350 Alert (0) Other (Comment) T-Piece Diminished [place];Pale;Red Warm;Dry Soft;Rounded Active Generalized Non-pitting None None None None lines secure, test passed 06/08/25 1601 -- -- -- Clear -- -- Soft;Rounded Active -- -- None None None None -- 06/08/25 1812 Alert (0) Other (Comment) T-Piece Clear [place];Pale;Red Warm;Dry Soft;Rounded Active Generalized Non-pitting None None None None -- Labs Recent Labs 06/08/25114 WBC 6.5 HGB 7.7* HCT 24.6* PLT 236 Lab Results Component Value Date/Time WBC 6.5 06/08/2025114 HGB 7.7 (L) 06/08/2025114 HCT 24.6 (L) 06/08/2025114 PLT 236 06/08/2025114 NA 129 (L) 06/08/2025114 K 3.8 06/08/2025114 CL 95 (L) 06/08/2025114 CO2 24 06/08/2025114 BUN 51 (H) 06/08/2025114 CREATININE 4.25 (H) 06/08/2025114 CALCIUM 9.1 06/08/2025114 Lab Results Component Value Date WBC 6.5 06/08/2025 HGB 7.7 (L) 06/08/2025 HCT 24.6 (L) 06/08/2025 PLT 236 06/08/2025 NA 129 (L) 06/08/2025 K 3.8 06/08/2025 CL 95 (L) 06/08/2025 CO2 24 06/08/2025 BUN 51 (H) 06/08/2025 CREATININE 4.25 (H) 06/08/2025 GLUCOSE 150 (H) 06/08/2025 CALCIUM 9.1 06/08/2025 IV Drips and Rate/Dose Continuous Meds[3] Safety - Before each treatment: Dialysis Machine No.: [id number] Machine Number: [id number] Dialyzer Lot No.: [id number] RO Machine Log Sheet Completed: Yes Machine Alarm Self Test: Completed, Passed (1348) (06/08/25 135) Air Foam Detector: Tested, Proper Function, pH Reading Extracorporeal Circuit Tested for Integrity: Yes Machine Conductivity: 13.8 Manual Conductivity: 13.8 Bicarbonate Concentrate Lot No.: [id number] Acid Concentrate Lot No.: [id number] Manual Ph: 7.2 Bleach Test (Neg): Yes Bath Temperature: 36 C (96.8 F) Tubing Lot Number: [id number] Conductivity Meter Serial #: [id number] All Connections Secure: Yes Arterial Parameters Set: Yes Saline Line Double Clamped: Yes Air Foam Detector: Tested, Proper Function, pH Reading Prime Volume (mL): 200 mL Machine Functioning Alarm Free? Yes Chlorine Testing - Before each treatment and every 4 hours: Time On: 1404 Time Off: 1804 Treatment Goal: 2 Weight Height: 165.1 cm (5' 5") (06/07/25 0839) Weight: 105 kg (230 lb 9.6 oz) (06/08/25 1350) BMI (Calculated): 38.37 (06/08/25 1350) 1st check: less than 0.1 ppm at: 1348 2nd check: less than 0.1 ppm at: 1648 3rd check: Not Applicable (if greater than 0.1 ppm, then check every 30 minutes from secondary) Access Flows and Pressures Patient Vitals for the past 8 hrs: Blood Flow Rate (mL/min) Ultrafiltration Rate (ml/hr) Arterial Pressure (mmHg) Venous Pressure (mmHg) TMP DFR Access Visible Intra-Hemodialysis Comments 06/08/25 1404 250 mL/min 630 ml/hr -10 mmHg 30 mmHg 110 600 Yes TX initiated, lines secure, 06/08/25 1406 400 mL/min 630 ml/hr -50 mmHg 70 mmHg 110 600 Yes BFR increased per policy 06/08/25 1415 400 mL/min 630 ml/hr -50 mmHg 80 mmHg 120 600 Yes BP stable, resting, lines secure, uf 140ml 06/08/25 1430 400 mL/min 630 ml/hr -50 mmHg 80 mmHg 110 600 Yes Stable, resting eyes closed, lines secure, uf 290ml 06/08/25 1445 400 mL/min 630 ml/hr -60 mmHg 90 mmHg 110 600 Yes Acid jug changed ph 7.2, conductivity 13. 8, pt resting, lines secure, uf 470ml 06/08/25 1454 -- -- -- -- -- -- -- Pt suctioned 06/08/25 1500 400 mL/min 630 ml/hr -50 mmHg 90 mmHg 120 600 Yes Pt resting, lines secure, uf 590ml 06/08/25 1515 400 mL/min 630 ml/hr -60 mmHg 100 mmHg 120 600 Yes BP stable, pt resting, lines secure, uf 750ml 06/08/25 1530 400 mL/min 630 ml/hr -60 mmHg 100 mmHg 120 600 Yes Resting eyes closed, lines secure, uf 910ml 06/08/25 1545 400 mL/min 630 ml/hr -60 mmHg 100 mmHg 120 600 Yes stable, resting, lines secure, uf 1090ml 06/08/25 1600 400 mL/min 630 ml/hr -60 mmHg 110 mmHg 120 600 Yes Pt resting, eyes closed, lines secure, uf 1280ml, Bicarb jug changed ph 7.2, conductivity 13. 8 06/08/25 1615 400 mL/min 630 ml/hr -60 mmHg 110 mmHg 110 600 Yes Pt resting, bp stable, uf 1380ml 06/08/25 1630 400 mL/min 630 ml/hr -60 mmHg 110 mmHg 110 600 Yes Lines secure, uf 1530ml 06/08/25 1645 400 mL/min 630 ml/hr -60 mmHg 110 mmHg 110 600 Yes pt alert, watching tv, lines secure, uf 1680ml 06/08/25 1700 400 mL/min 640 ml/hr -150 mmHg 110 mmHg 120 600 Yes stable, lines secure, uf 1850ml 06/08/25 1715 400 mL/min 640 ml/hr -140 mmHg 110 mmHg 120 600 Yes Pt alert, watching tv, lines secure, uf 2000ml 06/08/25 1730 400 mL/min 640 ml/hr -140 mmHg 110 mmHg 120 600 Yes Pt recieving trach care at this time, lines secure, uf 2180ml 06/08/25 1745 400 mL/min 640 ml/hr -140 mmHg 110 mmHg 120 600 Yes Pt alert, watching tv, lines secure, uf 2300ml 06/08/25 1800 400 mL/min 640 ml/hr -140 mmHg 130 mmHg 120 600 Yes Pt alert, watching tv, lines secure, uf 2460,l 06/08/25 1804 -- -- -- -- -- -- -- TX completed Vital Signs 1 No data found. 2 Patient Vitals for the past 24 hrs: BP Temp Temp src Pulse Resp SpO2 Weight 06/08/25 1812 104/54 37.1 C (98.8 F) -- 67 18 100 % -- 06/08/25 1804 (!) 106/37 -- -- 61 -- -- -- 06/08/25 1800 (!) 106/37 -- -- 65 -- -- -- 06/08/25 1745 (!) 105/40 -- -- 61 -- -- -- 06/08/25 1733 -- -- -- 62 -- 100 % -- 06/08/25 1730 100/64 -- -- 61 -- -- -- 06/08/25 1715 (!) 102/41 -- -- 62 -- -- -- 06/08/25 1700 132/77 -- -- 62 -- -- -- 06/08/25 1645 (!) 109/40 -- -- 60 -- -- -- 06/08/25 1630 (!) 121/38 -- -- 59 -- -- -- 06/08/25 1615 (!) 124/43 -- -- 57 -- -- -- 06/08/25 1600 (!) 120/47 -- -- 57 20 100 % -- 06/08/25 1545 (!) 124/42 -- -- 58 -- -- -- 06/08/25 1530 (!) 119/42 -- -- 59 -- -- -- 06/08/25 1515 120/56 -- -- 61 -- -- -- 06/08/25 1500 117/59 -- -- 67 -- -- -- 06/08/25 1445 (!) 117/42 -- -- 60 -- -- -- 06/08/25 1430 (!) 124/41 -- -- 59 -- -- -- 06/08/25 1415 (!) 126/48 -- -- 61 -- -- -- 06/08/25 1406 (!) 137/49 -- -- 62 -- -- -- 06/08/25 1404 (!) 121/41 -- -- 63 -- -- -- 06/08/25 1350 132/51 37.3 C (99.1 F) -- 65 20 99 % 105 kg (230 lb 9.6 oz) 06/08/25 1255 -- -- -- 63 -- 99 % -- 06/08/25 1200 119/54 -- -- 60 20 99 % -- 06/08/25 0900 -- -- -- 66 -- 99 % -- 06/08/25 0841 -- -- -- 66 15 99 % -- 06/08/25 0729 (!) 120/43 36.9 C (98.4 F) Oral 63 15 100 % -- 06/08/25 0400 (!) 105/37 -- -- -- -- -- -- 06/08/25 0342 -- -- -- 55 16 100 % -- 06/07/25 2324 -- -- -- (!) 39 16 100 % -- 06/07/252001 126/76 36.9 C (98.4 F) Oral 62 16 100 % -- 06/07/251951 -- -- -- 60 15 100 % -- 3 Patient Vitals for the past 24 hrs: BP Temp Temp src Pulse Resp SpO2 Weight 06/08/25 1812 104/54 37.1 C (98.8 F) -- 67 18 100 % -- 06/08/25 1804 (!) 106/37 -- -- 61 -- -- -- 06/08/25 1800 (!) 106/37 -- -- 65 -- -- -- 06/08/25 1745 (!) 105/40 -- -- 61 -- -- -- 06/08/25 1733 -- -- -- 62 -- 100 % -- 06/08/25 1730 100/64 -- -- 61 -- -- -- 06/08/25 1715 (!) 102/41 -- -- 62 -- -- -- 06/08/25 1700 132/77 -- -- 62 -- -- -- 06/08/25 1645 (!) 109/40 -- -- 60 -- -- -- 06/08/25 1630 (!) 121/38 -- -- 59 -- -- -- 06/08/25 1615 (!) 124/43 -- -- 57 -- -- -- 06/08/25 1600 (!) 120/47 -- -- 57 20 100 % -- 06/08/25 1545 (!) 124/42 -- -- 58 -- -- -- 06/08/25 1530 (!) 119/42 -- -- 59 -- -- -- 06/08/25 1515 120/56 -- -- 61 -- -- -- 06/08/25 1500 117/59 -- -- 67 -- -- -- 06/08/25 1445 (!) 117/42 -- -- 60 -- -- -- 06/08/25 1430 (!) 124/41 -- -- 59 -- -- -- 06/08/25 1415 (!) 126/48 -- -- 61 -- -- -- 06/08/25 1406 (!) 137/49 -- -- 62 -- -- -- 06/08/25 1404 (!) 121/41 -- -- 63 -- -- -- 06/08/25 1350 132/51 37.3 C (99.1 F) -- 65 20 99 % 105 kg (230 lb 9.6 oz) 06/08/25 1255 -- -- -- 63 -- 99 % -- 06/08/25 1200 119/54 -- -- 60 20 99 % -- 06/08/25 0900 -- -- -- 66 -- 99 % -- 06/08/25 0841 -- -- -- 66 15 99 % -- 06/08/25 0729 (!) 120/43 36.9 C (98.4 F) Oral 63 15 100 % -- 06/08/25 0400 (!) 105/37 -- -- -- -- -- -- 06/08/25 0342 -- -- -- 55 16 100 % -- 06/07/25 2324 -- -- -- (!) 39 16 100 % -- 06/07/252001 126/76 36.9 C (98.4 F) Oral 62 16 100 % -- 06/07/251951 -- -- -- 60 15 100 % -- 4 Vitals: 06/08/25 1745 06/08/25 1800 06/08/25 1804 06/08/251811 BP: (!) 105/40 (!) 106/37 (!) 106/37 104/54 BP Location: Patient Position: Pulse: 61 65 61 67 Resp: 18 Temp: 37.1 C (98.8 F) TempSrc: SpO2: 100% Weight: Height: 5 Patient Vitals for the past 24 hrs: BP Temp Temp src Pulse Resp SpO2 Weight 06/08/25 181 104/54 37.1 C (98.8 F) -- 67 18 100 % -- 06/08/25 1804 (!) 106/37 -- -- 61 -- -- -- 06/08/25 1800 (!) 106/37 -- -- 65 -- -- -- 06/08/25 1745 (!) 105/40 -- -- 61 -- -- -- 06/08/25 1733 -- -- -- 62 -- 100 % -- 06/08/25 1730 100/64 -- -- 61 -- -- -- 06/08/25 1715 (!) 102/41 -- -- 62 -- -- -- 06/08/25 1700 132/77 -- -- 62 -- -- -- 06/08/25 1645 (!) 109/40 -- -- 60 -- -- -- 06/08/25 1630 (!) 121/38 -- -- 59 -- -- -- 06/08/25 1615 (!) 124/43 -- -- 57 -- -- -- 06/08/25 1600 (!) 120/47 -- -- 57 20 100 % -- 06/08/25 1545 (!) 124/42 -- -- 58 -- -- -- 06/08/25 1530 (!) 119/42 -- -- 59 -- -- -- 06/08/25 1515 120/56 -- -- 61 -- -- -- 06/08/25 1500 117/59 -- -- 67 -- -- -- 06/08/25 1445 (!) 117/42 -- -- 60 -- -- -- 06/08/25 1430 (!) 124/41 -- -- 59 -- -- -- 06/08/25 1415 (!) 126/48 -- -- 61 -- -- -- 06/08/25 1406 (!) 137/49 -- -- 62 -- -- -- 06/08/25 1404 (!) 121/41 -- -- 63 -- -- -- 06/08/25 1350 132/51 37.3 C (99.1 F) -- 65 20 99 % 105 kg (230 lb 9.6 oz) 06/08/25 1255 -- -- -- 63 -- 99 % -- 06/08/25 1200 119/54 -- -- 60 20 99 % -- 06/08/25 0900 -- -- -- 66 -- 99 % -- 06/08/25 0841 -- -- -- 66 15 99 % -- 06/08/25 0729 (!) 120/43 36.9 C (98.4 F) Oral 63 15 100 % -- 06/08/25 0400 (!) 105/37 -- -- -- -- -- -- 06/08/25 0342 -- -- -- 55 16 100 % -- 06/07/25 2324 -- -- -- (!) 39 16 100 % -- 06/07/25 2002 126/76 36.9 C (98.4 F) Oral 62 16 100 % -- 06/07/25 1952 -- -- -- 60 15 100 % -- 6 Post-Dialysis Arterial Catheter Locking Solution: Heparin (1000units:1ml) Volume (ml): 1.1 Venous Catheter Locking Solution: Heparin (1000units:1ml) Volume (ml): 1.4 Post-Treatment Procedures: Blood returned, Catheter capped, clamped and heparinized x 2 ports Machine Disinfection Process: Acid/Vinegar Clean, Heat Disinfect, Exterior Machine Disinfection Rinseback Volume (mL): 300 mL Total Liters Processed (L/min): 92.5 L/min Dialyzer Clearance: Moderately streaked Heparin Amount Administered During Treatment (mL): 0 units Hemodialysis Intake (ml): 500 ml Hemodialysis Output (ml): 2500 ml Tolerated Treatment: Good Patient Response to Treatment: tolerated tx well Interventions Taken: Ultrafiltration goal decreased, Medication Physician Notified: No Patient Disposition: Remain in ICU/ED Provider Notification Provider Notification Reason for Communication: Review Case (Pt last recieved dialysis 06/04.. Labs declining. Na 129, Cr 4.25, BUN 51) Provider Name: Sergio Provider Role: Hospitalist Method of Communication: Secure chat Response: Waiting for response Notification Date: 06/08/25 Notification Time: 2118 Provider Role: Hospitalist Method of Communication: Secure chat Response: Waiting for response Notification Time: 2118 Handoff complete and report given to Primary RN at 1815. Primary RN (First Initial, Last Name, Title): Adam Doss RN Education Person Educated: Patient Knowledge Base: REJI trach pt hard to speak Barriers to Learning?: Yes, including Tracheostomy Preferred method of Learning: Oral Topic(s): Access Care, Signs and Symptoms of Infection, Fluid Management, Albumin, Procedural, Medications, Treatment Options, Potassium, Diet, and Transplant Teaching Tools: Explanation Response to Education: Verbalized Understanding [1] No Known Allergies [2] Patient Active Problem List Diagnosis Anemia Anemia, unspecified type Moderate malnutrition (CMS/HCC) (HCC) [3] Associated Order(s): Central Line Insertion Post-Procedure Diagnose(s): Chronic renal failure, unspecified CKD stage Central Line Insertion Date/Time: 06/08/2025 1:57 PM Performed by: Carmela Francois DO Authorized by: Carmela Francois DO Consent: The indications, risks, benefits, alternatives to the procedure were explained to the patient/surrogate decision maker and their questions answered. Consent was obtained to proceed with the procedure. Timeout: Completed immediately prior to the start of the procedure which included verification of the correct patient, correct site and agreement on the procedure to be done. Indication: Extracorporeal therapies. Hemodialysis, or Plasmapheresis Anesthetic: Local anesthetic used: lidocaine without epinephrine Procedure Details: Preparation: skin prepped with chlorhexidine Skin prep agent dried: skin prep agent completely dried prior to procedure Sterile barriers: all five maximum sterile barriers used - cap, mask, sterile gown, sterile gloves, and large sterile sheet Hand hygiene: hand hygiene performed prior to central venous catheter insertion Sterile technique: Sterile technique maintained throughout procedure. Central Line Type: hemodialysis Orientation: right Location details: internal jugular Patient position: flat Catheter type: double lumen Ultrasound guidance: yes Post-Procedure: Post-procedure: line sutured and antimicrobial dressing applied Description/Findings: dark, non-pulsatile blood return obtained from all lumens Estimated blood loss: < 5 mL Complications: No apparent complications Follow-up chest x-ray: completed, line in appropriate position Assistants & Supervision: I personally performed the procedure documented as signed by this procedure note Video Tape Transferrer(s): N/A No supervision required documented in this encounter [facility] 06-08-[address] [facility] 06-07-2025 Note Patient tolerated th e procedure well. 600ml's of clear gold fluid removed. Fluid left with ICU nurse for labs to be sent. [facility] 06-04-2025 Note Return referral plac ed to [facility] via [facility] per [facility] request. Await review and response regarding ability to accept. [facility]CC notified. [facility] 06-01-[address] [facility] 06-01-2025 History and physical note Attending History and Physical Admit Date: 06/01/2025 PCP: No primary care provider on file. CHIEF COMPLAINT: Low blood counts Reason for Admission: Acute on chronic anemia History Obtained From: ED physician and the patient HISTORY OF PRESENT ILLNESS: Rosa is a 75 y.o. 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 She was ordered 1 unit of blood transfusion, nephrology has been consulted Will admit for further evaluation and management. Past Medical History: Medical History[1] Past Surgical History: Surgical History[2] Social History: Social History Socioeconomic History Marital status: Single Spouse name: Not on file Number of children: Not on file Years of education: Not on file Highest education level: Not on file Occupational History Not on file Tobacco Use Smoking status: Not on file Smokeless tobacco: Not on file Substance and Sexual Activity Alcohol use: Not on file Drug use: Not on file Sexual activity: Not on file Other Topics Concern Not on file Social History Narrative Not on file Social Drivers of Health Financial Resource Strain: Not on file Food Insecurity: Not on file Transportation Needs: Not on file Physical Activity: Not on file Stress: Not on file Social Connections: Not on file Intimate Partner Violence: Not on file Housing Stability: Not on file Family History: Family History[3] Medications Prior to Admission: Current Medications[4] Medications Reconciliation: Allergies: Allergies[5] REVIEW OF SYSTEMS: 10 point ROS obtained, as per HPI, otherwise NEG Vitals: BP (!) 125/43 Pulse 65 Temp 36.4 C (97.6 F) Resp 16 SpO2 100% BMI Classification: Pulse Ox: SpO2 Av.3 % Min: 98 % Max: 100 % Supplemental O2: PHYSICAL EXAM: Physical Exam Constitutional: Appearance: She is ill-appearing. HENT: Head: Laceration (nasal abrasion) present. Neck: Trachea: Tracheostomy present. Comments: With vent Cardiovascular: Rate and Rhythm: Regular rhythm. Tachycardia present. Pulses: Normal pulses. Heart sounds: Normal heart sounds, S1 normal and S2 normal. Pulmonary: Effort: Pulmonary effort is normal. Breath sounds: Normal breath sounds. Abdominal: Palpations: Abdomen is soft. Musculoskeletal: General: Swelling present. Skin: Comments: Multiple pressure wounds on the coccyx, sacrum and lower extremity DATA: CBC: Recent Labs 06/01/25 1113 WBC 5.5 RBC 2.80* HGB 7.1* HCT 23.0* MCV 82.1 RDW 20.6* PLT 244 BMP: Recent Labs 06/01/25 1113 NA 134* K 3.5 CL 93* CO2 30 BUN 41* CREATININE 2.34* GLUCOSE 174* CALCIUM 9.4 ANIONGAP 11 LIVER PROFILE: Recent Labs 06/01/25 1113 AST 21 ALT 15 BILITOT 0.5 ALKPHOS 148 PROT 6.5 PT/INR: No results for input(s): "PROTIME", "INR" in the last 72 hours. CARDIAC ENZYMES: No results for input(s): "TROPONINI" in the last 72 hours. Procalcitonin: No results found for: "PROCAL" Urine Culture: No results found for this or any previous visit. COVID-19 PCR: No results for input(s): "COVID19" in the last 72 hours. I reviewed: [x] laboratory results [x] radiographic results At the time of today's encounter. Pt was advised of the results. Data: (LOW: 2x CAT1 or independent historian MOD: 3x CAT1 or 1x CAT3 EXTENSIVE: 3x CAT1 and 1x CAT3) Assessment Discussed management with the ED provider and agree with hospitalization. Acute, acute on chronic, unstable/uncontrolled chronic problems/diagnoses: Acute on chronic anemia Anemia of chronic disease due to end-stage renal disease End-stage renal disease on hemodialysis [address] Loredo Patient of nursing facility Chronic respiratory failure on vent management Type 2 diabetes mellitus with hyperglycemia on insulin and peripheral neuropathy PEG tube feeding Tracheostomy in place Obesity Chronic wounds present on admission-multiple pressure injuries on coccyx, groin, nose Chronic dry skin Stable chronic problems affecting care, new non-acute diagnoses: Plan As a result of the above findings & factors, the following mgmt was pursued: - Admit the patient to medical floor, consulted pulmonology for vent management, dietitian to continue tube feeding, on Nepro at the facility,, wound care management, nephrology for hemodialysis, monitor H&H receiving 1 unit of blood transfusion Tracheal suction - am labs, replace lytes prn - PT/OT/CM/SW - delirium precautions: - DVT prophylaxis: Heparin Complexity: Risk: Advance Directive: No Order Anticipated Discharge - Date -June 02 or - Location [facility] [place] - Pending the following -clinical improvement and H&H stability Total time spent (which include face to face and non face to face encounters) : 76 minutes. Toxic drug monitoring/narrow therapeutic index drug monitoring : # Drug name : # Route administered : # Method of monitoring : No emergency contact information on file. [employer] [employer] Rosa Myers : 1950 Primary Care Physician: No primary care provider on file. The patient and/or family/surrogate voluntarily agreed to participate in ACP services. Patient s cognitive capacity: has capacity Code Status: [_* ] [FULL CODE - Continue all advanced life support: CPR,intubation,invasive procedures] [_] [DNR-CCA - DO NOT do CPR, intubation] [_] [DNR-DIRECTOR MACHINE - Comfort care only] [_] DNR form [was/was not] signed Summary of discussion: The patient health care POA/ surrogate is the following: . [Condition that instigated the ACP on this DOS, relevant PMH, functional status, goals of care, and whom this was discussed with including names and relationship to the patient, and any relevant advance care documentation discussion] I answered all the patient/family questions that I could within the range and scope of the current medical situation. We discussed the medical conditions, risks, benefits, outcomes, and goals of care at this time for the patient's medical issues at hand in the face of the patient's chronic issues and current presentation. Total time spent: 19 minutes were spent discussing the patient's resuscitation status, advance care planning, and end of life care, with patient and/or family/surrogate. Sharyn Amaya MD Division of Hospitalist Medicine [facility] [1] No past medical history on file. [2] No past surgical history on file. [3] No family history on file. [4] Current Facility-Administered Medications: sodium chloride 0.9 % infusion, 250 mL/hr, IntraVENous, PRN, Omid Orona MD Current Outpatient Medications: atorvastatin (Lipitor) 40 MG tablet, Take 40 mg by mouth daily. Via PEG, Disp: , Rfl: busPIRone (Buspar) 5 MG tablet, Take 5 mg by mouth 3 times daily., Disp: , Rfl: carvedilol (Coreg) 12.5 MG tablet, Take 12.5 mg by mouth 2 times daily., Disp: , Rfl: FLUoxetine (PROzac) 20 MG/5ML solution, Take 20 mg by mouth daily. Via PEG, Disp: , Rfl: furosemide (Lasix) 20 MG tablet, Take 20 mg by mouth daily. Via PEG, given on wed/Wednesday for weight gain, Disp: , Rfl: insulin glargine (Lantus) 100 UNIT/ML injection, Inject 25 Units under the skin 2 times daily., Disp: , Rfl: Insulin Lispro (Humalog) 100 UNIT/ML solution injection, Inject 2-12 Units under the skin 3 times daily (with meals). Sliding scale: 150-200 = 2 units, 102-250 = 4 units, 251-300 = 6 units, 301-350 = 8 units, 351-400 = 10 units, 401-450 = 12 units, Disp: , Rfl: midodrine (Proamatine) 10 MG tablet, Take 10 mg by mouth 3 times daily. Via PEG, given M-F 1hr prior to dialysis, Disp: , Rfl: pantoprazole (ProtoNix) 20 MG EC tablet, Take 20 mg by mouth every morning (before breakfast). Do not crush, chew, or split., Disp: , Rfl: [5] No Known Allergies documented in this encounter [facility] 06-01-2025 Emergency department Note EMERGENCY DEPARTMENT ENCOUNTER Pt Name: Rosa Myers Birthdate 1950 Date of evaluation: 06/01/2025 ED Provider: Omid Orona MD CHIEF COMPLAINT Chief Complaint Patient presents with Other Sent from [facility] for low HGB, [facility]. Pt is trach/vent dependant, A&Ox2-3 per EMS. RT called to the bedside. Pt does daily hemodialysis through R chest wall cath HISTORY OF PRESENT ILLNESS (Location/Symptom, Timing/Onset, Context/Setting, Quality, Duration, Modifying Factors, Severity) Note limiting factors. I wore appropriate PPE for the entirety of this encounter. HPI Rosa Myers is a 75 y.o. female who presents to the emergency department with chief complaint of abnormal blood counts. [facility] that shows hemoglobin of 6.5. Patient has chronic renal failure, per her nursing notes receives dialysis Wednesday through Wednesday at her facility. Patient has tracheostomy in place for chronic respiratory failure, PEG tube in place. Patient is able to answer questions by nodding her head yes and no but somewhat limited history due to tracheostomy in place. Patient denies pain. Denies fevers. Denies vomiting. Nursing Notes were reviewed. Limitations to history: Tracheostomy limiting communication Outside historians: EMS REVIEW OF SYSTEMS Review of Systems: Review of systems limited PAST MEDICAL HISTORY Medical History[1] SURGICAL HISTORY Surgical History[2] CURRENT MEDICATIONS Previous Medications ATORVASTATIN (LIPITOR) 40 MG TABLET Take 40 mg by mouth daily. Via PEG BUSPIRONE (BUSPAR) 5 MG TABLET Take 5 mg by mouth 3 times daily. CARVEDILOL (COREG) 12.5 MG TABLET Take 12.5 mg by mouth 2 times daily. FLUOXETINE (PROZAC) 20 MG/5ML SOLUTION Take 20 mg by mouth daily. Via PEG FUROSEMIDE (LASIX) 20 MG TABLET Take 20 mg by mouth daily. Via PEG, given on wed/Wednesday for weight gain INSULIN GLARGINE (LANTUS) 100 UNIT/ML INJECTION Inject 25 Units under the skin 2 times daily. INSULIN LISPRO (HUMALOG) 100 UNIT/ML SOLUTION INJECTION Inject 2-12 Units under the skin 3 times daily (with meals). Sliding scale: 150-200 = 2 units, 102-250 = 4 units, 251-300 = 6 units, 301-350 = 8 units, 351-400 = 10 units, 401-450 = 12 units MIDODRINE (PROAMATINE) 10 MG TABLET Take 10 mg by mouth 3 times daily. Via PEG, given - 1hr prior to dialysis PANTOPRAZOLE (PROTONIX) 20 MG EC TABLET Take 20 mg by mouth every morning (before breakfast). Do not crush, chew, or split. ALLERGIES Patient has no known allergies. FAMILY HISTORY Family History[3] SOCIAL HISTORY Social History[4] SCREENINGS [place] Coma Scale Best Eye Response: Spontaneous Best Verbal Response: Oriented Best Motor Response: Follows commands Anai Coma Scale Score: 15 PHYSICAL EXAM ED Triage Vitals Temp Heart Rate Resp BP 06/01/25 1055 06/01/25 1055 06/01/25 1055 06/01/25 1055 36.5 C (97.7 F) 58 16 124/59 SpO2 Temp Source Heart Rate Source Patient Position 06/01/25 1055 06/01/25 1055 06/01/25 1055 -- 98 % Oral Monitor BP Location FiO2 (%) -- 06/01/25 1116 30 % Physical Exam: Vital signs reviewed in nurse's notes. Patient is nontoxic in appearance. No respiratory distress. Head: Normocephalic, atraumatic Eyes: Pupils are equal, round and reactive to light. EOMI. Conjunctiva clear. Sclera anicteric ENT: Mucous membranes moist. Throat shows no erythema exudates or edema. Tracheostomy site without significant drainage Lungs: Clear to auscultation bilaterally. No wheezing rales or rhonchi. Heart: Regular rate and rhythm. No audible murmur or gallop. Abdomen: Soft, nondistended, nontender. No rebound or guarding. No signs of peritonitis. PEG tube site without tenderness swelling or drainage. Back: No midline tenderness. No flank area tenderness. Extremities: No gross deformity. No obvious tenderness. No obvious joint swelling. No calf tenderness. Negative Homans sign. Good distal pulses in all 4 extremities. Neurologic: Alert and fully oriented. DIAGNOSTIC RESULTS Procedures/EKG: Normal sinus rhythm. Rate of 61. Left bundle branch block. Occasional PACs. No old EKG available for comparison. Today's EKG interpreted by this examiner. EKG was reviewed by myself. [facility] RAD[facility]OLOGY (Per Emergency Physician): Chest x-ray: Vascular congestion. Interpreted by this examiner. Interpretation per the Radiologist below, if available at the time of this note: XR chest 1 view Final Result Findings consistent with pulmonary edema/vascular congestion. Bilateral pleural effusions with associated atelectasis/consolidative changes. Report Dictated on Electronically Signed By: Peter Melvin MD Electronically Signed Date/Time: 06/01/2025 12:19 PM EDT ED BEDSIDE ULTRASOUND: Performed by ED Physician - none LABS: Labs Reviewed CBC WITH AUTO DIFFERENTIAL - Abnormal Result Value Auto WBC 5.5 RBC 2.80 (*) Hemoglobin 7.1 (*) Hematocrit 23.0 (*) MCV 82.1 MCH 25.4 (*) MCHC 30.9 RDW 20.6 (*) Platelets 244 MPV 9.9 nRBC 0.0 Neutrophils Relative 68.9 Lymphocytes Relative 15.7 Monocytes Relative 11.4 Eosinophils Relative 2.9 Basophils Relative 0.7 Immature Grans % 0.4 Neutrophils Absolute 3.8 Lymphocytes Absolute 0.9 (*) Monocytes Absolute 0.6 Eosinophils Absolute 0.2 Basophils Absolute 0.0 Immature Grans Absolute 0.0 BASIC METABOLIC PANEL - Abnormal SODIUM 134 (*) POTASSIUM 3.5 CHLORIDE 93 (*) CARBON DIOXIDE 30 UREA NITROGEN 41 (*) CREATININE 2.34 (*) GLUCOSE 174 (*) CALCIUM 9.4 ANION GAP 11 eGFR 21.0 (*) HEPATIC FUNCTION PANEL - Abnormal BILIRUBIN, TOTAL 0.5 BILIRUBIN, DIRECT 0.2 ALKALINE PHOSPHATASE 148 AST (SGOT) 21 ALT 15 ALBUMIN 2.2 (*) TOTAL PROTEIN 6.5 MAGNESIUM - Normal MAGNESIUM 2.1 Narrative: Higher values can be expected in females during menses. HIGH SENSITIVITY TROPONIN, SERIAL BASELINE - Normal Troponin HS Serial Baseline 12 BLOOD TYPE AND SCREEN GEL ABO Grouping A Antibody Screen NEG Rh Type POS CONFIRMATORY ABO/RH ABO Grouping A Rh Type POS HIGH SENSITIVITY TROPONIN, SERIAL, SECOND TEST HEMOGLOBIN AND HEMATOCRIT, BLOOD PREPARE RBC PRODUCT CODE [id number] Unit Number [id number] Unit ABO A Unit RH POS Crossmatch interpretation COMP Dispense Status Crossmatch Blood Expiration Date Product Blood Type 6200 Unit Volume 300 PRODUCT CODE [id number] Unit Number [id number] Unit ABO A Unit RH POS Crossmatch interpretation COMP Dispense Status Transfused Blood Expiration Date Product Blood Type 6200 Unit Volume 300 Lab studies obtained. Hemoglobin here is 7.1. Creatinine 2.34. No hyperkalemia. Laboratory studies reviewed by this examiner EMERGENCY DEPARTMENT COURSE and DIFFERENTIAL DIAGNOSIS/MDM: Vitals: Vitals: 06/01/25 1055 06/01/25 1116 06/01/25 1338 BP: 124/59 131/56 Pulse: 58 65 62 Resp: 16 19 16 Temp: 36.5 C (97.7 F) 36.5 C (97.7 F) TempSrc: Oral SpO2: 98% 100% Patient has worsening anemia of chronic disease. We do not have any old laboratory studies for comparison. [facility] I contacted her solar electric practitioner from the [facility], Dr. Amaya who also admits here to the hospital. He agrees with plans for admission observation, blood transfusion. I also will contact her nephrology group, the [facility] to arrange for dialysis. Patient is admitted in fair condition The patient presented with chief complaint of low blood count. The differential diagnosis associated with this patient's presentation includes anemia, electro abnormality, worsening renal failure. Our workup consisted of ordering/reviewing: Laboratory studies, EKG, chest x-ray. I discussed their care with Admitting team hospitalist and Flight Dynamic[employer] nephrology. Consideration for escalation of care with: Admission/observation for blood transfusion, monitoring. The patient will be Admitted. Patient is in agreement with this plan. Patient's care was impacted by chronic respiratory failure, chronic renal failure. Medications sodium chloride 0.9 % infusion (has no administration in time range) REVAL: CRITICAL CARE TIME Total Critical Care time was 15 minutes, excluding separately reportable procedures. There was a high probability of clinically significant/life threatening deterioration in the patient's condition which required my urgent intervention. CONSULTS: None PROCEDURES: Unless otherwise noted below, none Procedures Patients symptoms are consistent with sepsis, severe sepsis, or septic shock (If yes use ".sepsiscoremeasure"): no FINAL IMPRESSION 1. Anemia, unspecified type 2. Chronic renal failure, unspecified CKD stage DISPOSITION Observation 06/01/2025 01:13:17 PM PATIENT REFERRED TO: No follow-up provider specified. DISCHARGE MEDICATIONS: New Prescriptions No medications on file (Comment: Please note this report has been produced using speech recognition software and may contain errors related to that system including errors in grammar, punctuation, and spelling, as well as words and phrases that may be inappropriate. If there are any questions or concerns please feel free to contact the dictating provider for clarification.) Omid Orona MD (electronically signed) Emergency Medicine Provider [1] No past medical history on file. [2] No past surgical history on file. [3] No family history on file. [4] Social History Socioeconomic History Marital status: Single Omid Orona MD 06/01/25 1346 documented in this encounter [facility] 04-05-2025 Note ORIGINAL PROCEDURE: ULTRASOUND GUIDED THORACENTESIS CLINICAL STATEMENT: Pleural effusion, shortness of breath LATERALITY: Right FLUID REMOVED: 1175 cc FLUID COLOR: Serous yellow DISPOSITION OF FLUID: Discarded/ Therapeutic CATHETER/NEEDLE: 5 Fr centesis catheter needle The procedure, risks, limitations, and alternatives were discussed. All questions were answered. Written informed consent obtained. Accompanying paperwork was verified for accuracy. Directed history and physical exam performed prior to the procedure. Medication reconciliation was performed by nursing personnel. Procedure was performed using a cap, sterile gloves, a sterile sheet, sterile probe cover and sterile gel, hand hygiene and hospital-approved cutaneous antisepsis. Ultrasound survey demonstrates pleural effusion. 2% lidocaine was administered at the puncture site for local anesthesia. The centesis catheter needle was advanced into the effusion under real-time sonographic guidance. After removal of the needle, the catheter was attached to the waste management system. The catheter was removed once no additional fluid could be removed and a dressing applied. Postprocedure images obtained. COMPLICATIONS: None EBL: None PATIENT CONDITION: Stable, unchanged. IMPRESSION: Successful ultrasound guided thoracentesis This procedure was performed by Yany Saldana PA-C Interpreted by: Angie Bashir MD Preliminary Report By: Yany Saldana PA-C Electronically signed By Angie Bashir MD Dictated Date: 04/05/2025 12:57:55 PM Prelim Date: 04/05/2025 12:58:42 PM Sign Date: 04/05/2025 4:49:07 PM Ordering Provider: [facility] 03-27-2025 Note ORIGINAL PROCEDURE: ULTRASOUND GUIDED left THORACENTESIS FLOWER MACHINE OPERATOR: Cha Yusuf PA-C CLINICAL STATEMENT: Left pleural effusion ANESTHESIA: Local FLUID REMOVED: 600 cc FLUID COLOR: Dark yellow DISPOSITION OF FLUID: Sent to lab CATHETER/NEEDLE: 5 Fr centesis catheter The procedure, risks, limitations, and alternatives were discussed. All questions were answered. Written informed consent was obtained. Accompanying paperwork was verified for accuracy. Directed history and physical exam performed prior to the procedure. Medication reconciliation was performed by nursing personnel. Procedure was performed using a cap, sterile gloves, a large sterile sheet, hand hygiene and hospital-approved cutaneous antisepsis. Ultrasound survey demonstrates a left pleural effusion. 2% lidocaine was administered at the puncture site for local anesthesia. The centesis catheter needle was advanced into the effusion. After removal of the needle, the catheter was attached to vacuum bottles and removed once no additional fluid could be removed. COMPLICATIONS: None EBL: None PATIENT CONDITION: unchanged IMPRESSION: Successful ultrasound guided left thoracentesis. Procedure was performed by Cha Yusuf PA-C. I concur with the contents of this report. Interpreted by: Yamil Mast MD Preliminary Report By: Cha Yusuf PA-C Electronically signed By Yamil Mast MD Dictated Date: 03/22/2025 4:22:33 PM Prelim Date: 03/22/2025 4:23:20 PM Sign Date: 03/27/2025 5:38:19 PM Ordering Provider: JANAE ZARCO Interpreted by: Yamil Mast MD Preliminary Report By: Cha Yusuf PA-C Electronically signed By Yamil Mast MD Dictated Date: 03/22/2025 4:22:33 PM Prelim Date: 03/22/2025 4:23:20 PM Sign Date: 03/27/2025 5:38:19 PM Ordering Provider: JANAE ZARCO [facility] 03-27-2025 Note . MICRO - Microbiology PROCEDURE: Culture Body Fluid with Gram Stain [*1] SOURCE: Pleural Fluid BODY SITE: COLLECTED DATE/TIME: 03/22/2025 09:55 EDT RECEIVED DATE/TIME: 03/22/2025 12:14 EDT START DATE/TIME: 03/22/2025 12:15 EDT FREE TEXT SOURCE: left FINAL REPORTS Final Report [] Verified Date/Time/Personnel: 03/27/2025 13:00 EDT Culture: No Growth at 5 days. PRELIMINARY REPORTS Preliminary Report [] Verified Date/Time/Personnel: 03/22/2025 12:59 EDT Culture has been received in lab and is no growth to date. Routine cultures are held for 5 days. STAINS GS [] Verified Date/Time/Personnel: 03/22/2025 15:12 EDT Sedimented 3+ Polymorphonuclear cells 3+ Mononuclear cells No organisms seen. Performing Locations *1: This test was performed at: [facility], [address] [place] [address], [phone] , [facility] 03-22-2025 Note ORIGINAL PROCEDURE: ULTRASOUND GUIDED right THORACENTESIS FLOWER MACHINE OPERATOR: Cha Yusuf PA-C CLINICAL STATEMENT: Bilateral pleural effusions, right greater than left ANESTHESIA: Local FLUID REMOVED: 1300 cc FLUID COLOR: Yellow serous DISPOSITION OF FLUID: Specimen sent with patient to [facility] CATHETER/NEEDLE: 5 Fr centesis catheter The procedure, risks, limitations, and alternatives were discussed. All questions were answered. Written informed consent was obtained. Accompanying paperwork was verified for accuracy. Directed history and physical exam performed prior to the procedure. Medication reconciliation was performed by nursing personnel. Procedure was performed using a cap, sterile gloves, a large sterile sheet, hand hygiene and hospital-approved cutaneous antisepsis. Ultrasound survey demonstrates a right pleural effusion. 2% lidocaine was administered at the puncture site for local anesthesia. The centesis catheter needle was advanced into the effusion. After removal of the needle, the catheter was attached to vacuum bottles and removed once no additional fluid could be removed. Fluid specimen was sent with the patient back to [facility] for lab if needed. No lab orders were in place at the time of procedure. COMPLICATIONS: None EBL: None PATIENT CONDITION: unchanged IMPRESSION: Successful ultrasound guided right thoracentesis. Procedure was performed by Cha Yusuf PA-C. I concur with the contents of this report. Interpreted by: Yamil Mast MD Preliminary Report By: Cha Yusuf PA-C Electronically signed By Yamil Mast MD Dictated Date: 03/21/2025 1:56:17 PM Prelim Date: 03/21/2025 1:58:45 PM Sign Date: 03/22/2025 8:57:19 AM Ordering Provider: JANAE ZARCO Interpreted by: Yamil Mast MD Preliminary Report By: Cha Yusuf PA-C Electronically signed By Yamil Mast MD Dictated Date: 03/21/2025 1:56:17 PM Prelim Date: 03/21/2025 1:58:45 PM Sign Date: 03/22/2025 8:57:19 AM Ordering Provider: JANAE ZARCO [facility] 03-11-2025 Note . MICRO - Microbiology PROCEDURE: Culture Respiratory with Gram Stain [^1 *1] SOURCE: Tracheal Aspirate BODY SITE: COLLECTED DATE/TIME: 03/08/2025 13:30 EDT RECEIVED DATE/TIME: 03/08/2025 13:58 EDT START DATE/TIME: 03/08/2025 13:58 EDT FREE TEXT SOURCE: FINAL REPORTS Final Report [] Verified Date/Time/Personnel: 03/11/2025 08:14 EDT Light Serratia marcescens Normal respiratory dave present. PRELIMINARY REPORTS Preliminary Report [] Verified Date/Time/Personnel: 03/10/2025 10:45 EDT Light Serratia marcescens TREVOR to follow Normal respiratory dave present. Final report to follow. Preliminary Report [] Verified Date/Time/Personnel: 03/09/2025 11:29 EDT Culture results pending. STAINS GS [] Verified Date/Time/Personnel: 03/08/2025 15:07 EDT 2+ Polymorphonuclear cells 3+ Gram Negative Rods 2+ Gram Positive Rods SUSCEPTIBILITY RESULTS Serratia marcescens Antibiotic TREVOR Dilut TREVOR Inter Amikacin <=16 Susceptible Amoxicillin/ 16/8 Resistant Clavulanate Ampicillin <=8 Resistant Ampicillin/ 8/4 Resistant Sulbactam Aztreonam >16 Resistant Cefazolin >16 Resistant Ceftolozane/ <=2 Susceptible Tazobactam Ceftriaxone 8 Resistant Cefuroxime >16 Resistant Ciprofloxacin <=0.25 Susceptible Ertapenem <=0.5 Susceptible Gentamicin <=2 Susceptible ID Panel Not Not Applicable Applicable Levofloxacin <=0.5 Susceptible Meropenem <=1 Susceptible Minocycline 8 Intermediate Moxifloxacin <=2 Susceptible Piperacillin/ 32 Intermediate Tazobactam Tetracycline >8 Resistant Trimethoprim/ <=0.5/9.5 Susceptible Sulfa MICRO - Microbiology Interpretive Data ^1: Culture Respiratory with Gram Stain Requests for Mycoplasma, Legionella, Fungi, Mycobacteria, Chlamydia, and Viruses require ordering of those individual tests. Performing Locations *1: This test was performed at: [facility], [address] [place] [address], [phone] , [facility] 03-07-2025 Note [facility] 02-21-2025 Note [facility] 02-19-2025 Note [facility] 02-05-2025 History and physi jim note Note Date/Time February 05, 2025 2:41p [facility] Medical Records Department [address] [place] [address] H&P Exam - Hospitalist 02/05/25 1311 MR#: [id number] Acct: [id number] Name: ROSA MYERS Rep #:[id number] : 1950 74 From: Zachery Olvera PCP: Dr. Amado James MD Status:AD M IN Location: ICU ICU02-1 HPI - General General Date of Admission: 02/05/25 Date of Service: 02/05/25 Chief Complaint: Shortness of breath ongoing for 1 week HPI Narrative ROSA MYERS, is a 74 F with multiple comorbidities came to ED progressive worsening of shortness of breath for 1 week. She also has bilateral lower extremity edema looks chronic for 6 months. Patient is very short of breath andcannot give detailed history and was urgently put on the BiPAP. Patient denies chest tightness but to the ED physician she complained of some pain over her left chest, dull aching. Detailed history regarding palpitation, near syncope could not be taken because of shortness of breath. She also has a healing wound on the right leg on the lateral surface with surrounding cellulitis with redness and induration. She is being followed in the wound center by Dr. Erwin last seen in October 2024 and has bilateral fifth metatarsal head excision with history of osteomyelitis in the past in June 2024. No fever. Clinical assessment consistent with CHF exacerbation. Patient had Lasix 40 mg IV in the ED Labs, EKG and chest x-ray to be discussed in assessment and plan. [facility] Medical History Essential hypertension Morbid obesity with BMI of 40.0-44.9, adult Hypothermia Cardiomyopathy Chronic anemia Hypoxia History of diabetes mellitus Acute metabolic encephalopathy due to hypoglycemia History of stroke Chronic kidney disease Altered level of consciousness Non-pressure chronic ulcer of other 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 Chronic kidney disease (CKD) Type 2 diabetes mellitus with hypoglycemia Diabetes mellitus with diabetic polyneuropathy Type 2 diabetes mellitus with foot ulcer Diabetes mellitus with diabetic polyneuropathy Dyspnea Ischemic cardiomyopathy History of CVA (cerebrovascular accident) Atherosclerosis of coronary artery without angina pectoris Type 2 diabetes mellitus Secondary pulmonary arterial hypertension Chronic combined systolic and diastolic CHF (congestive heart failure) Essential hypertension Obesity Chronic kidney disease (CKD) GI bleed (01/2022) Anemia Diabetes mellitus type 2 in obese Hyperlipidemia Home Medications ?Medication ?Instructions ?Recorded ?Last Taken ?Type atorvastatin 40 mg tablet 40 mg PO QHS CHOLESTEROL Unknown History aspirin 81 mg tablet,delayed 81 mg PO DAILY HEART HEAL TH 06/03/22 Unknown History release (Adult Aspirin Regimen) dapagliflozin propanediol 10 mg 10 mg PO DAILY DIABETE S #90 tabs 07/12/24 Unknown Rx tablet (Farxiga) blood sugar diagnostic (Accu-Chek 07/13/24 Unknown Hi story Alvina Plus test strips) fluoxetine 10 mg capsule 10 mg PO DAILY DEPERSSION Unknown History insulin lispro 100 unit/mL 25 unit subcut ACHS DM 06/27 04/19 Unknown History subcutaneous pen (Humalog KwikPen (U-100) Insulin) amlodipine 5 mg tablet 5 mg PO DAILY HEART #0 tabs 07/18/24 Unknown Rx vitamin B complex (Complex B-100 1 tab PO DAILY HEALTH MAINTENENCE 08/19/24 Unknown History tablet,extended release) carvedilol 12.5 mg tablet 12.5 mg PO BIDCM #30 tabs Unknown Rx losartan 50 mg tablet 50 mg PO DAILY #30 tabs 07/29 03/20 Unknown Rx furosemide 40 mg tablet 40 mg PO BID #60 tabs Unknown Rx metolazone 5 mg tablet 5 mg PO DAILY HE 01/30/25 Un known History acetaminophen 325 mg tablet 650 mg PO Q6H PRN Pain 1-1 0 Or 02/05/25 Unknown History Fever >100.7 Allergy/AdvReac Type Severity Reaction Status Date / Time No Known Allergies Allergy Verified 02/05/25 09:50 Family History Father Diabetes Heart disease CAD (coronary artery disease) Mother Heart disease Surgical History History of coronary artery stent placement (09/2013) H/O vein stripping Status post angioplasty with stent Social History household members: family Smoking Status: Former smoker how long ago did patient quit smokin years ago alcohol intake: never substance use type: does not use caffeine: Yes ROS ROS Narrative Complete 12 ROS unobtainable. Review of Systems ROS Unobtainable: other Details: Extreme dyspnea and shortness of breath extreme Vital Signs Vital Signs Vital Signs: 02/05/25 09:46 02/05/25 09:50 02/05/25 09:53 Temperature 98.1 F 98.1 F Temperature Source Oral Oral Pulse Rate 103 H 101 H Respiratory Rate 25 H 29 H Respiratory Effort Short of Breath Labored Blood Pressure 125/64 H 125/64 H Blood Pressure Mean 84 84 Pulse Ox 80 95 Oxygen Delivery Method Room Air Nasal Cannula Nasal Cannula Oxygen Flow Rate (L/min) 4 4 02/05/25 10:18 02/05/25 10:18 02/05/25 10:50 Temperature 97.9 F Temperature Source Oral Pulse Rate 110 H Respiratory Rate 33 H 35 H Respiratory Effort Blood Pressure 101/72 Blood Pressure Mean 81 Pulse Ox 96 97 92 Oxygen Delivery Method Nasal Cannula Nasal Cannula Oxygen Flow Rate (L/min) 4 5 02/05/25 11:20 02/05/25 12:00 02/05/25 13:00 Temperature Temperature Source Pulse Rate 108 H 98 105 H Respiratory Rate 27 H 29 H 33 H Respiratory Effort Blood Pressure 101/72 140/69 H 154/82 H Blood Pressure Mean 81 92 106 Pulse Ox 93 94 96 Oxygen Delivery Method Room Air Nasal Cannula Nasal Cannula Oxygen Flow Rate (L/min) 6 6 02/05/25 13:06 Temperature 97.9 F Temperature Source Pulse Rate 105 H Respiratory Rate 33 H Respiratory Effort Blood Pressure 154/82 H Blood Pressure Mean 106 Pulse Ox 96 Oxygen Delivery Method Oxygen Flow Rate (L/min) Weight Weight: 116 lb 6.4 oz Body Mass Index (BMI) 20.6 Physical Exam Narrative General: Awake, fatigued, tired/lethargic but extremely dyspneic HEENT: Atraumatic, PERRLA, EOMI, Normocephalic. Oral: Oral mucosa dry, deep oropharyngeal structures could not be visualized Neck: Supple, elevated BL JVD, Negative Carotid Bruits Chest wall/Lungs: Air entry severely diminished in all lung kiran. Bilateral coarse crepitation Cardiovascular: Sinus, Normal S1,S2, No M/G/R Abdomen: Bowel Sounds Present, Soft, Non Tender, Non-Distended : No dysuria. No renal angle tenderness. No suprapubic tenderness. Extremities: 3+ bilateral pitting edema, Capillary Refill Less than 3 Seconds Skin: Healing superficial scratch/ulcer over lateral aspect of right leg with surrounding contiguous cellulitis Musculoskeletal: No Tenderness to Palpation of Joints or Extremities. ROM restricted Neurological: Cranial nerves II-XII grossly intact, DTR 2+/4. No acute focal neurological deficit. Psych/Mental Status: Flat affect. Results Lab / Micro Data 02/05/25 09:59 02/05/25 09:59 Labs: Laboratory Results - last 24 hr 02/05/25 09:59: WBC 20.5 H, RBC 3.71 L, Hgb 8.0 L, Hct 27.9 L, MCV 75.2 L, MCH 21.6 L, MCHC 28.7 L, RDW Std Deviation 45.6 H, RDW Coeff of Bulmaro 17.0 H, Plt Count 226, MPV 10.6, Immature Gran % (Auto) 0.600, Neut % (Auto) 89.7 H, Lymph %(Auto) 2.5 L, Hopkins % (Auto) 6.9, Eos % (Auto) 0.0, Baso % (Auto) 0.3, Absolute Neuts (auto) 18.4 H, Absolute Lymphs (auto) 0.51 L, Nucleated RBC % 0, PT 17.1 H, INR 1.4, APTT 31.7, Sodium 135, Potassium 5.5 H, Chloride 100, Carbon Dioxide 15.7 L, Anion Gap 19 H, BUN 58 H, Creatinine 2.32 H, Estim Creat Clear Calc 17.07 L, Est GFR (MDRD) Non-Af 21 L, BUN/Creatinine Ratio 24.9 H, Glucose 259 H,Lactic Acid 2.5 H*, Calcium 9.1 02/05/25 10:47: Troponin T High Sens 218 H*, [place] [address] H 02/05/25 11:20: Urine Color Yellow, Urine Clarity Clear, Urine pH 5.0, Ur Specific [place] 1.025, Urine Protein 30 H, Urine Glucose (UA) 100 H, Urine Ketones Negative, Urine Occult Blood 10 H, Urine Nitrite Negative, Urine Bilirubin Negative, Urine Urobilinogen Normal, Ur Leukocyte Esterase 500 H, Urine RBC 0 SEEN, Urine WBC 10-25 SEEN, Ur Squamous Epith Cells 0 SEEN, Urine Bacteria 0 SEEN, Urine Mucus 0 SEEN Imaging Radiology Impression Chest X-Ray 02/05/25 11:10 IMPRESSION: Cardiomegaly and CHF. Blunting of both costophrenic angles. Reading Location: [id number] Assessment & Plan Assessment/Plan (1) Acute on chronic combined systolic (congestive) and diastolic (congestive) heart failure: (2) Cellulitis of right anterior lower leg: PLAN: Plan This 74-year-old female is being admitted for extreme dyspnea at rest/shortness of breath and bilateral lower extremity edema consistent with acute on chronic heart failure 1. Acute on chronic respiratory failure due to heart failure exacerbation: The patient is being admitted in ICU on BiPAP. ABG stat ordered. Discussed with the ED physician to watch for half an hour if she does not improve will need intubation prior to transfer to ICU. Currently on 6 L of oxygen. Lactic acidosis most likely due to pulmonary edema/hypoxia. Patient does not have signs and symptoms of sepsis. The patient not on home oxygen or NIPPV at home 2. Acute on chronic combined heart failure: BNP about 30,000. Chest x-ray initially reviewed and shows pulmonary edema, cardiomegaly and blunting of both CP angles. Twelve-lead EKG sinus tachycardia, 104 bpm, QRS 168, QTc 531 ms. LBBB. 3. Elevated troponin probably due to increased cardiac demand with suspicion ofpossible non-STEMI: Patient complained of nondescriptive chest pain. Lesion discussed with flake miller [employer] and oats Dr. Cardona. Recommended enoxaparin 1 dose. Troponin 218, 241. Third troponin pending. EKG as described above. Patient has CAD status post stents, on aspirin and statin. Hold carvedilol because of CHF exacerbation/fluid overload and resume once euvolemic. Last echo in February 2024 shows EF 35%, moderately severe segmental systolic dysfunction, stage I diastolic dysfunction. Mitral valve, tricuspid valve reported normal. She had Lasix 40 mg IV in ED. 1 more dose of Lasix 40 mg IV stat, then started on Lasix drip. Heart failure core measures including intake and output, fluid restriction less than 1500 mL, daily weight monitoring, kidneyand electrolytes monitoring. Repeat 2D echo. Legislative Advocate consulted from ED physician ELIDA on CKD stage IV: Patient baseline creatinine runs around 2.0 as in January 2025. Admitting BUN/creatinine 58/2.32 therefore ELIDA on CKD stage IV. Drug Coordinator consulted. Patient has hyperkalemia, 5.5, high anion gap metabolicacidosis, AG 19, bicarb 15. ABG ordered as mentioned above. Kayexalate and hyperkalemia cocktail ordered. Repeat BMP after 4 hours. Hold losartan metolazone. 4. Chronic severe anemia: H&H 8.0/27.9%. MCV 75 RDW elevated 17.0. Possible chronic iron deficiency anemia. Monitor CBC. Iron workup ordered for tomorrow a.m. 5. DM type II: Last A1c 5.2% in July 2024. Accu-Chek before meals and at bedtime with Humalog sliding scale coverage and hypoglycemia protocol. Most recent glucoses elevated, 259 BMP 6. Chronic bilateral fifth metatarsal excision: Superficial ulcer of left lateral leg and contiguous cellulitis: MRSA wound and nasal screen ordered. IV cefazolin given in ED. IV ceftriaxone ordered 7. Past history of CVA: History of remote left lacunar infarct. On aspirin andstatin, continued 8. Morbid obesity: Current weight 116 pounds, BMI 20.6 kg/m?. I think this is wrong/error reading of her weight as her BMI is 43.5 kg/m? in July 2024 and she looks more swollen edematous and heavy weight. 9. Depression and anxiety: On Flexotard continue 10. DVT prophylaxis on therapeutic dose of Lovenox Living will/advanced directive/end of life care: Patient does not have living will or advanced directive. After discussion of benefits/risks procedures involved with full code, DNR CC arrest and DNR CC, the patient opted for full code. Patient does want artificial life support including intubation, tube feed, ventilator and/chest compression, central venous catheter, vasopressor and DC shock if needed Total time spent in [id number] encounter in discussion of advanced directive 17 minutes. Laboratory Results 02/05/25 09:59: WBC 20.5 H, RBC 3.71 L, Hgb 8.0 L, Hct 27.9 L, MCV 75.2 L, MCH 21.6 L, MCHC 28.7 L, RDW Std Deviation 45.6 H, RDW Coeff of Bulmaro 17.0 H, Plt Count 226, MPV 10.6, Immature Gran % (Auto) 0.600, Neut % (Auto) 89.7 H, Lymph %(Auto) 2.5 L, Hopkins % (Auto) 6.9, Eos % (Auto) 0.0, Baso % (Auto) 0.3, Absolute Neuts (auto) 18.4 H, Absolute Lymphs (auto) 0.51 L, Nucleated RBC % 0, PT 17.1 H, INR 1.4, APTT 31.7, Sodium 135, Potassium 5.5 H, Chloride 100, Carbon Dioxide 15.7 L, Anion Gap 19 H, BUN 58 H, Creatinine 2.32 H, Estim Creat Clear Calc 17.07 L, Est GFR (MDRD) Non-Af 21 L, BUN/Creatinine Ratio 24.9 H, Glucose 259 H, Lactic Acid 2.5 H*, Calcium 9.1 02/05/25 10:47: Troponin T High Sens 218 H*, [place] [address] H 02/05/25 11:20: Urine Color Yellow, Urine Clarity Clear, Urine pH 5.0, Ur Specific [place] 1.025, Urine Protein 30 H, Urine Glucose (UA) 100 H, Urine Ketones Negative, Urine Occult Blood 10 H, Urine Nitrite Negative, Urine Bilirubin Negative, Urine Urobilinogen Normal, Ur Leukocyte Esterase 500 H, Urine RBC 0 SEEN, Urine WBC 10-25 SEEN, Ur Squamous Epith Cells 0 SEEN, Urine Bacteria 0 SEEN, Urine Mucus 0 SEEN 02/05/25 13:03: Phosphorus 6.1 H, Magnesium 2.6 H, Troponin T Hi Sens 2 Hr 241 H* Clinical Impression(s) from Imaging Studies Chest X-Ray 02/05/25 11:10 IMPRESSION: Cardiomegaly and CHF. Blunting of both costophrenic angles. Reading Location: [id number] Charges/Coding Visit Charges Inpatient E&M: 21591 Init Hosp L3 Procedures Hospitalists Procedures: 98174 Advncd Care Plan 30 Min 02/05/25 1441 <Electronically signed by Zachery Gomez MD> Cosigner Signature (if applicable): CC: Dr. Amado James MD; Dr. Zachery Gomez MD~ Signed [facility] Work Phone: [phone] 573-251805-12-2025 History and physical note [facility] Medical Records Department [address] [place] [address] H&P Exam - Hospitalist 02/05/25 1311 MR#: [id number] Acct: [id number] Name: ROSA MYERS Rep #:[id number] : 1950 74 From: Zachery Olvera PCP: Dr. Amado James MD Status:AD M IN Location: ICU ICU02-1 HPI - General General Date of Admission: 02/05/25 Date of Service: 02/05/25 Chief Complaint: Shortness of breath ongoing for 1 week HPI Narrative ROSA MYERS, is a 74 F with multiple comorbidities came to ED progressive worsening of shortness ofbreath for 1 week. She also has bilateral lower extremity edema looks chronic for 6 months. Patientis very short of breath andcannot give detailed history and was urgently put on the BiPAP. Patient d enies chest tightness but to the ED physician she complained of some pain over her left chest, dullaching. Detailed history regarding palpitation, near syncope could not be taken because of shortness of breath. She also has a healing wound on the right leg on the lateral surface with surrounding cellulitis with redness and induration. She is being followed in the wound center by Dr. Erwin last seen in October 2024 and has bilateral fifth metatarsal head excision with history of osteomyelitis in the past in June 2024. No fever. Clinical assessment consistent with CHF exacerbation. Patient had Lasix 40 mg IV in the ED Labs, EKG and chest x-ray to be discussed in assessment and plan. [facility] Medical History Essential hypertension Morbid obesity with BMI of 40.0-44.9, adult Hypothermia Cardiomyopathy Chronic anemia Hypoxia History of diabetes mellitus Acute metabolic encephalopathy due to hypoglycemia History of stroke Chronic kidney disease Altered level of consciousness Non-pressure chronic ulcer of other 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 Chronic kidney disease (CKD) Type 2 diabetes mellitus with hypoglycemia Diabetes mellitus with diabetic polyneuropathy Type 2 diabetes mellitus with foot ulcer Diabetes mellitus with diabetic polyneuropathy Dyspnea Ischemic cardiomyopathy History of CVA (cerebrovascular accident) Atherosclerosis of coronary artery without angina pectoris Type 2 diabetes mellitus Secondary pulmonary arterial hypertension Chronic combined systolic and diastolic CHF (congestive heart failure) Essential hypertension Obesity Chronic kidney disease (CKD) GI bleed (01/2022) Anemia Diabetes mellitus type 2 in obese Hyperlipidemia Home Medications ?Medication ?Instructions ?Recorded ?Last Taken ?Type atorvastatin 40 mg tablet 40 mg PO QHS CHOLESTEROL Unknown History aspirin 81 mg tablet,delayed 81 mg PO DAILY HEART HEAL TH 06/03/22 Unknown History release (Adult Aspirin Regimen) dapagliflozin propanediol 10 mg 10 mg PO DAILY DIABETE S #90 tabs 07/12/24 Unknown Rx tablet (Farxiga) blood sugar diagnostic (Accu-Chek 07/13/24 Unknown Hi story Alvina Plus test strips) fluoxetine 10 mg capsule 10 mg PO DAILY DEPERSSION Unknown History insulin lispro 100 unit/mL 25 unit subcut ACHS DM 06/27 04/19 Unknown History subcutaneous pen (Humalog KwikPen (U-100) Insulin) amlodipine 5 mg tablet 5 mg PO DAILY HEART #0 tabs 07/18/24 Unknown Rx vitamin B complex (Complex B-100 1 tab PO DAILY [facility] 08/19/24 Unknown History tablet,extended release) carvedilol 12.5 mg tablet 12.5 mg PO BIDCM #30 tabs Unknown Rx losartan 50 mg tablet 50 mg PO DAILY #30 tabs 07/29 03/20 Unknown Rx furosemide 40 mg tablet 40 mg PO BID #60 tabs Unknown Rx metolazone 5 mg tablet 5 mg PO DAILY HE 01/30/25 Un known History acetaminophen 325 mg tablet 650 mg PO Q6H PRN Pain 1-1 0 Or 02/05/25 Unknown History Fever >100.7 Allergy/AdvReac Type Severity Reaction Status Date / Time No Known Allergies Allergy Verified 02/05/25 09:50 Family History Father Diabetes Heart disease CAD (coronary artery disease) Mother Heart disease Surgical History History of coronary artery stent placement (09/2013) H/O vein stripping Status post angioplasty with stent Social History household members: family Smoking Status: Former smoker how long ago did patient quit smokin years ago alcohol intake: never substance use type: does not use caffeine: Yes ROS ROS Narrative Complete 12 ROS unobtainable. Review of Systems ROS Unobtainable: other Details: Extreme dyspnea and shortness of breath extreme Vital Signs Vital Signs Vital Signs: 02/05/25 09:46 02/05/25 09:50 02/05/25 09:53 Temperature 98.1 F 98.1 F Temperature Source Oral Oral Pulse Rate 103 H 101 H Respiratory Rate 25 H 29 H Respiratory Effort Short of Breath Labored Blood Pressure 125/64 H 125/64 H Blood Pressure Mean 84 84 Pulse Ox 80 95 Oxygen Delivery Method Room Air Nasal Cannula Nasal Cannula Oxygen Flow Rate (L/min) 4 4 02/05/25 10:18 02/05/25 10:18 02/05/25 10:50 Temperature 97.9 F Temperature Source Oral Pulse Rate 110 H Respiratory Rate 33 H 35 H Respiratory Effort Blood Pressure 101/72 Blood Pressure Mean 81 Pulse Ox 96 97 92 Oxygen Delivery Method Nasal Cannula Nasal Cannula Oxygen Flow Rate (L/min) 4 5 02/05/25 11:20 02/05/25 12:00 02/05/25 13:00 Temperature Temperature Source Pulse Rate 108 H 98 105 H Respiratory Rate 27 H 29 H 33 H Respiratory Effort Blood Pressure 101/72 140/69 H 154/82 H Blood Pressure Mean 81 92 106 Pulse Ox 93 94 96 Oxygen Delivery Method Room Air Nasal Cannula Nasal Cannula Oxygen Flow Rate (L/min) 6 6 02/05/25 13:06 Temperature 97.9 F Temperature Source Pulse Rate 105 H Respiratory Rate 33 H Respiratory Effort Blood Pressure 154/82 H Blood Pressure Mean 106 Pulse Ox 96 Oxygen Delivery Method Oxygen Flow Rate (L/min) Weight Weight: 116 lb 6.4 oz Body Mass Index (BMI) 20.6 Physical Exam Narrative General: Awake, fatigued, tired/lethargic but extremely dyspneic HEENT: Atraumatic, PERRLA, EOMI, Normocephalic. Oral: Oral mucosa dry, deep oropharyngeal structures could not be visualized Neck: Supple, elevated BL JVD, Negative Carotid Bruits Chest wall/Lungs: Air entry severely diminished in all lung kiran. Bilateral coarse crepitation Cardiovascular: Sinus, Normal S1,S2, No M/G/R Abdomen: Bowel Sounds Present, Soft, Non Tender, Non-Distended : No dysuria. No renal angle tenderness. No suprapubic tenderness. Extremities: 3+ bilateral pitting edema, Capillary Refill Less than 3 Seconds Skin: Healing superficial scratch/ulcer over lateral aspect of right leg with surrounding contiguous cellulitis Musculoskeletal: No Tenderness to Palpation of Joints or Extremities. ROM restricted Neurological: Cranial nerves II-XII grossly intact, DTR 2+/4. No acute focal neurological deficit. Psych/Mental Status: Flat affect. Results Lab / Micro Data 02/05/25 09:59 02/05/25 09:59 Labs: Laboratory Results - last 24 hr 02/05/25 09:59: WBC 20.5 H, RBC 3.71 L, Hgb 8.0 L, Hct 27.9 L, MCV 75.2 L, MCH 21.6 L, MCHC 28.7 L,RDW Std Deviation 45.6 H, RDW Coeff of Bulmaro 17.0 H, Plt Count 226, MPV 10.6, Immature Gran % (Auto) 0.600, Neut % (Auto) 89.7 H, Lymph %(Auto) 2.5 L, Hopkins % (Auto) 6.9, Eos % (Auto) 0.0, Baso % (Auto)0.3, Absolute Neuts (auto) 18.4 H, Absolute Lymphs (auto) 0.51 L, Nucleated RBC % 0, PT 17.1 H, INR1.4, APTT 31.7, Sodium 135, Potassium 5.5 H, Chloride 100, Carbon Dioxide 15.7 L, Anion Gap 19 H, BUN 58 H, Creatinine 2.32 H, Estim Creat Clear Calc 17.07 L, Est GFR (MDRD) Non-Af 21 L, BUN/Creatinine Ratio 24.9 H, Glucose 259 H,Lactic Acid 2.5 H*, Calcium 9.1 02/05/25 10:47: Troponin T High Sens 218 H*, [place] [address] H 02/05/25 11:20: Urine Color Yellow, Urine Clarity Clear, Urine pH 5.0, Ur Specific [place] 1.025, Urine Protein 30 H, Urine Glucose (UA) 100 H, Urine Ketones Negative, Urine Occult Blood 10 H, Urine Nitrite Negative, Urine Bilirubin Negative, Urine Urobilinogen Normal, Ur Leukocyte Esterase 500 H, U rine RBC 0 SEEN, Urine WBC 10-25 SEEN, Ur Squamous Epith Cells 0 SEEN, Urine Bacteria 0 SEEN, UrineMucus 0 SEEN Imaging Radiology Impression Chest X-Ray 02/05/25 11:10 IMPRESSION: Cardiomegaly and CHF. Blunting of both costophrenic angles. Reading Location: [id number] Assessment & Plan Assessment/Plan (1) Acute on chronic combined systolic (congestive) and diastolic (congestive) heart failure: (2) Cellulitis of right anterior lower leg: PLAN: Plan This 74-year-old female is being admitted for extreme dyspnea at rest/shortness of breath and bilateral lower extremity edema consistent with acute on chronic heart failure 1. Acute on chronic respiratory failure due to heart failure exacerbation: The patient is being admitted in ICU on BiPAP. ABG stat ordered. Discussed with the ED physician to watch for half an hour if she does not improve will need intubation prior to transfer to ICU. Currently on 6 L of oxygen. Lactic acidosis most likely due to pulmonary edema/hypoxia. Patient does not have signs and symptoms of sepsis. The patient not on home oxygen or NIPPV at home 2. Acute on chronic combined heart failure: BNP about 30,000. Chest x-ray initially reviewed and shows pulmonary edema, cardiomegaly and blunting of both CP angles. Twelve-lead EKG sinus tachycardia,104 bpm, QRS 168, QTc 531 ms. LBBB. 3. Elevated troponin probably due to increased cardiac demand with suspicion ofpossible non-STEMI: Patient complained of nondescriptive chest pain. Lesion discussed with flake miller [employer] and o[employer] Dr. Cardona. Recommended enoxaparin 1 dose. Troponin 218, 241. Third troponin pending. EKG as described above. Patient has CAD status post stents, on aspirin and statin. Hold carvedilol because of CHF exacerbation/fluid overload and resume once euvolemic. Last echo in February 2024 shows EF 35%, moderately severe segmental systolic dysfunction, stage I diastolic dysfunction. Mitral valve, tricuspid valve reported normal. She had Lasix 40 mg IV in ED. 1 more dose of Lasix 40 mg IV stat, then started on Lasix drip. Heart failure core measures including intake and output, fluid restriction less than 1500 mL, daily weight monitoring, kidneyand electrolytes monitoring. Repeat 2D echo. Legislative Advocate consulted from ED physician ELIDA on CKD stage IV: Patient baseline creatinine runs around 2.0 as in January 2025. Admitting BUN/creatinine 58/2.32 therefore ELIDA on CKD stage IV. Drug Coordinator consulted. Patient has hyperkalemia, 5.5,high anion gap metabolicacidosis, AG 19, bicarb 15. ABG ordered as mentioned above. Kayexalate and hyperkalemia cocktail ordered. Repeat BMP after 4 hours. Hold losartan metolazone. 4. Chronic severe anemia: H&H 8.0/27.9%. MCV 75 RDW elevated 17.0. Possible chronic iron deficiency anemia. Monitor CBC. Iron workup ordered for tomorrow a.m. 5. DM type II: Last A1c 5.2% in July 2024. Accu-Chek before meals and at bedtime with Humalog sliding scale coverage and hypoglycemia protocol. Most recent glucoses elevated, 259 BMP 6. Chronic bilateral fifth metatarsal excision: Superficial ulcer of left lateral leg and contiguous cellulitis: MRSA wound and nasal screen ordered. IV cefazolin given in ED. IV ceftriaxone ordered 7. Past history of CVA: History of remote left lacunar infarct. On aspirin andstatin, continued 8. Morbid obesity: Current weight 116 pounds, BMI 20.6 kg/m?. I think this is wrong/error reading of her weight as her BMI is 43.5 kg/m? in July 2024 and she looks more swollen edematous and heavy weight. 9. Depression and anxiety: On Flexotard continue 10. DVT prophylaxis on therapeutic dose of Lovenox Living will/advanced directive/end of life care: Patient does not have living will or advanced directive. After discussion of benefits/risks procedures involved with full code, DNR CC arrest and DNR CC, the patient opted for full code. Patient does want artificial life support including intubation, tube feed, ventilator and/chest compression, central venous catheter, vasopressor and DC shock if needed Total time spent in [id number] encounter in discussion of advanced directive 17 minutes. Laboratory Results 02/05/25 09:59: WBC 20.5 H, RBC 3.71 L, Hgb 8.0 L, Hct 27.9 L, MCV 75.2 L, MCH 21.6 L, MCHC 28.7 L,RDW Std Deviation 45.6 H, RDW Coeff of Bulmaro 17.0 H, Plt Count 226, MPV 10.6, Immature Gran % (Auto) 0.600, Neut % (Auto) 89.7 H, Lymph %(Auto) 2.5 L, Hopkins % (Auto) 6.9, Eos % (Auto) 0.0, Baso % (Auto)0.3, Absolute Neuts (auto) 18.4 H, Absolute Lymphs (auto) 0.51 L, Nucleated RBC % 0, PT 17.1 H, INR1.4, APTT 31.7, Sodium 135, Potassium 5.5 H, Chloride 100, Carbon Dioxide 15.7 L, Anion Gap 19 H, BUN 58 H, Creatinine 2.32 H, Estim Creat Clear Calc 17.07 L, Est GFR (MDRD) Non-Af 21 L, BUN/Creatinine Ratio 24.9 H,Glucose 259 H, Lactic Acid 2.5 H*, Calcium 9.1 02/05/25 10:47: Troponin T High Sens 218 H*, [place] [address] H 02/05/25 11:20: Urine Color Yellow, Urine Clarity Clear, Urine pH 5.0, Ur Specific [place] 1.025, Urine Protein 30 H, Urine Glucose (UA) 100 H, Urine Ketones Negative, Urine Occult Blood 10 H, Urine Nitrite Negative, Urine Bilirubin Negative, Urine Urobilinogen Normal, Ur Leukocyte Esterase 500 H, U rine RBC 0 SEEN, Urine WBC 10-25 SEEN, Ur Squamous Epith Cells 0 SEEN, Urine Bacteria 0 SEEN, UrineMucus 0 SEEN 02/05/25 13:03: Phosphorus 6.1 H, Magnesium 2.6 H, Troponin T Hi Sens 2 Hr 241 H* Clinical Impression(s) from Imaging Studies Chest X-Ray 02/05/25 11:10 IMPRESSION: Cardiomegaly and CHF. Blunting of both costophrenic angles. Reading Location: [id number] Charges/Coding Visit Charges Inpatient E&M: 08116 Init Hosp L3 Procedures Hospitalists Procedures: 09565 Advncd Care Plan 30 Min 02/05/25 1441 Cosigner Signature (if applicable): CC: Dr. Amado James MD; Dr. Zachery Gomez MD~ Signed [facility]05-12-2025 Radiology Diagnostic study note [place] [facility] [address] [place] [id number] Chest 1 View (Portable) MR#: [id number] Acct: [id number] Name: ROSA MYERS Rep #: [id number] : 1950 F 74 From: Kelton Daly MD PCP: Dr. Amado James MD Status: RE G ER Study:Chest 1 View (Portable) Date of Exam: 02/05/25 Exam# [id number] Ordering Dr: Eduardo Corona DO PROCEDURE: CHEST 1 VIEW (PORTABLE) 02/05/2025 REASON FOR EXAM: DYSPNEA TECHNIQUE: Frontal view of the chest. COMPARISON: Comparison is made with prior study dated August 19, 2024. FINDINGS: Hardware: EKG electrodes are seen. Heart: Heart size is moderately enlarged. Lungs: Vascular congestion and CHF. Blunting of both costophrenic angles and bibasilar atelectasis. Bones: Degenerative changes are identified within the thoracic spine. Other: RAD/Chest 1 View (Portable) IMPRESSION: Cardiomegaly and CHF. Blunting of both costophrenic angles. Reading Location: [facility] CC: Dr. Eduardo Corona DO; Dr. Amado James MD ~ [place]: Signed [facility]03-25-2025 Telephone encounter Note* Telephone Encounter - Amado James MD - 12/19/2024 2:28 PM EDT Please notify patient that her lab results look good, except her blood count is low again, with a hemoglobin of 7.5. If she is taking aspirin I would like to have her stop that, and would like her totake once daily iron as ordered, and recheck CBC in 2 weeks Amado James MD [facility]03-25-2025 Miscellaneous Notes* Telephone Encounter - Amado James MD - 12/19/2024 2:28 PM EDT Please notify patient that her lab results look good, except her blood count is low again, with a hemoglobin of 7.5. If she is taking aspirin I would like to have her stop that, and would like her totake once daily iron as ordered, and recheck CBC in 2 weeks Amado James MD documented in this encounterAs[facility]03-[facility] Instructions* Patient Instructions* Rufina Soares APRN.CNP - 11/27/2024 2:16 PM EST Get fasting labs and urine testing completed Continue to take all medication as prescribed Monitor sugars at home fasting and meals Work on eating a low carb diet Stay well hydrated Follow up in 3 months or sooner pending test results, documented in this encounterAsht[facility]03-[facility] History of Present illness Narrative* Rufina Soares APRN.CNP - 11/27/2024 2:00 PM EST This is a 74 year old female who presents today with: Patient presents with: Follow Up: 2 month follow up HISTORY OF PRESENT ILLNESS: Rosa Myers is a 74 year old female. Patient presents with: Follow Up: 2 month follow up 2 month follow up. Due for labs DM: Reports overall feeling well. Medication side effects: No. Home sugar checks: 163 today fasting, and lunch 160. Hypoglycemic spells: No. Watching diet: No. Unexpected weight loss: No. Polyuria, polydipsia: No. Vision Changes: No. Foot lesions or numbness or pain: No. Was just released from wound clinic At last OV increased Levemir 30 units at QHS and Humalog 15 units TID with meals. Still taking Farxiga 10 mg daily. CKD, stage 4, following with Nephrology HTN: Taking Losartan 50 mg and Amlodipine 5 mg daily. Not currently checking BP at home. Lipids: Taking Liptor 40 mg at bed. Son present at today's appointment. Prefers to hold off on making medication adjustments. PAST MEDICAL HISTORY: PAST MEDICAL HISTORY Diagnosis Date Allergic rhinitis due to other allergen Essential hypertension, benign Type II or unspecified type diabetes mellitus without mention of complication, uncontrolled PAST SURGICAL HISTORY Procedure Laterality Date CATARACT EXTRACTION HX Right 10/26/2017 EGD W/O [facility] SPEC VARICIES INJ N/A 02/24/2022 LIG/TRNSXJ FLP TUBE ABDL/VAG APPR UNI/BI 1987 Tubal ligation LIGJ DIVJ &/EXCJ VARICOSE VEIN CLUSTER 1 LEG 1995 Varicose Vein Surgery TONSILLECTOMY PRIMARY/SECONDARY <AGE 10 Tonsillectomy ALLERGIES Diana Inhibitors and Neomycin MEDICATIONS Current Outpatient Medications Medication Sig losartan (COZAAR) 50 mg tablet Take 1 tablet by mouth once daily. insulin detemir U-100 (LEVEMIR) 100 unit/mL (3 mL) injection pen Inject 30 Units subcutaneously every morning. insulin lispro (HUMALOG KWIKPEN INSULIN) 100 unit/mL INJECT 15 UNITS SUBCUTANEOUSLY THREE TIMES DAILY WITH MEALS DIRECTED vitamin B complex (COMPLEX B-100 ORAL) Take 100 mg by mouth once daily. dapagliflozin propanediol (FARXIGA) 10 mg tablet Take 1 tablet by mouth daily with breakfast. amLODIPine (NORVASC) 5 mg tablet Take 1 tablet by mouth once daily. blood sugar diagnostic (BLOOD GLUCOSE TEST) test strip Test blood sugar(s) 3 times daily. Dx: 250.02. Insulin: Yes atorvastatin (LIPITOR) 40 mg tablet Take 1 tablet by mouth daily at bedtime. For cholesterol. metOLazone (ZAROXOLYN) 5 mg tablet Take 1 tablet by mouth once daily. clotrimazole-betamethasone (LOTRISONE) cream Apply to affected area two times a day. furosemide (LASIX) 40 mg tablet Take 2 tablets by mouth once daily. FLUoxetine (PROZAC) 10 mg capsule Take 1 capsule by mouth once daily. carvedilol (COREG) 12.5 mg tablet Take 1 tablet by mouth two times a day. blood sugar diagnostic (BLOOD GLUCOSE TEST) test strip Alvina test strips. Test blood sugars once daily as directed. Dx: E11.9. Insulin: Yes Insulin Syringe-Needle U-100 1 mL 29 gauge x 1/2" 1 Each once daily. USE ONE SYRINGE FOR EACH INSULIN DOSE/ 1 PER DAY insulin needles, DISPOSABLE, (PEN NEEDLE) 31 gauge x 5/16" Use 4 times daily to inject insulin Blood-Glucose Meter misc 1 Each once daily. Blood Sugar Diagnostic, Drum (ACCU-CHEK COMPACT TEST) strp Test blood sugar(s) 3 times daily. Dx:E11.9 . Insulin: Yes loratadine (CLARITIN) 10 mg tablet Take 1 tablet by mouth once daily. Cholecalciferol, Vitamin D3, 1,000 unit cap Take 1 capsule by mouth once daily. Insulin [place], Disposable, (RELION PEN NEEDLES) 32 x 5/32 " ndle Use as directed with insulin pen. 250.00. 4 injections/day. On insulin. Blood-Glucose Meter, Drum-type (ACCU-CHEK COMPACT PLUS CARE) kit Use as directed cyanocobalamin (VITAMIN B-12) 1,000 mcg tab Take 1 tablet by mouth once daily. Aspirin 81 mg Tab Take 81 mg by mouth. No current facility-administered medications for this visit. FAMILY HISTORY Problem Relation Age of Onset Diabetes Father Coronary Artery Disease Father Coronary Artery Disease Mother CABG age 80 Cataract Sister Blindness Sister Blindness Other Social History Tobacco Use Smoking status: Former Smokeless tobacco: Never Tobacco comments: Quit 1980s Vaping Use Vaping status: Never Used Substance Use Topics Alcohol use: No Drug use: No REVIEW OF SYSTEMS GENERAL: No weight loss, malaise or fevers/chills HEENT: Negative for frequent or significant headaches, No changes in hearing or vision. NECK: Negative for lumps, goiter, pain and significant neck swelling RESPIRATORY: Negative for cough, hemoptysis, wheezing, dyspnea or shortness of breath CARDIOVASCULAR: Negative for chest pain, leg swelling, orthopnea, or palpitations GI: No nausea, vomiting, or diarrhea/constipation. No hematochezia/melena. No heartburn or reflux symptoms. : No history of dysuria, frequency or incontinence MUSCULOSKELETAL: Negative for joint pain or swelling. SKIN: Negative for lesions, rash, and itching ENDOCRINE: Negative for cold or heat intolerance, polyuria, polydipsia and goiter NEURO: No history of headaches, syncope, paralysis, seizures or tremors MOOD: Negative for depression, anxiety, or suicidal ideation. EXAM: BP 126/80 Pulse 65 Resp 16 Wt 109.8 kg (242 lb) SpO2 96% PHYSICAL EXAM: General Appearance: Well appearing, alert, in no acute distress, well-hydrated, well nourished. Skin: Skin color, texture, turgor normal, no suspicious rashes or lesions. Head: Normocephalic, no masses, lesions, tenderness or abnormalities. Eyes: Anicteric sclera. Extraocular movements are intact. Lungs: Lungs clear to auscultation. No wheezing, rhonchi, rales. Heart: RRR without murmur, gallop, or rubs. No ectopy. Extremities: No deformities, edema, skin discoloration, clubbing or cyanosis. Good capillary refill. Peripheral Pulses: Normal, Capillary refill <2secs, strong peripheral pulses, Pulses palpable. Neurologic: Gait normal. Sensation grossly intact. ASSESSMENT/PLAN: 1. Type 2 diabetes mellitus with chronic kidney disease, with long-term current use of insulin, unspecified CKD stage (HCC) - ICD9: 250.40, 585.9, V58.67, ICD10: E11.22, Z79.4 (primary diagnosis) - Improving control - Continue current medications, denies wanting to make adjustments at this time. - Instructed to monitor sugars at home - Counseled on healthy diet and regular exercise - Discussed need for and benefit of weight loss. BMI 39.66 kg/(m^2) - Instructed to get fasting labs and urine testing completed. 2. Essential hypertension, benign - ICD9: 401.1, ICD10: I10 - Controlled - Continue current medications - Recommend home blood pressure monitoring, to bring results to next visit - Encouraged sodium restriction, DASH or Mediterranean diet - Recommend regular aerobic exercise - Discussed need for and benefit of weight loss. BMI 39.66 kg/(m^2) 3. Hyperlipidemia, unspecified hyperlipidemia type - ICD9: 272.4, ICD10: E78.5 - Control undetermined, due for labs - Continue current medications - Counseled on healthy diet and regular exercise - Discussed need for and benefit of weight loss. BMI 39.66 kg/(m^2) 4. Chronic kidney disease, stage 4 (severe) (HCC) - ICD9: 585.4, ICD10: N18.4 - Get labs completed Follow-up in 3 months or sooner pending test results. Discussed treatment plan and patient voices understanding. Patient's questions answered appropriately. Medications and potential side effects were discussed and patient voices understanding. Rufina Soares APRN.RENEE This note was partially generated using [email or web address] voice recognition system. Note was reviewed for accuracy. There may be minor misspellings or grammar miscues with XDCon voice recognition. documented in this encounterAshtabula [facility]03-[facility]25 NoteHNO ID: [id number] Author: RUFINA SOARES APRN.RENEE Service: ? Author Type: Nurse Practitioner Type: Progress Notes Filed: 11/27/2024 15:43 Note Text: This is a 74 year old female who presents today with: Patient presents with: Follow Up: 2 month follow up HISTORY OF PRESENT ILLNESS: Rosa Myers is a 74 year old female. Patient presents with: Follow Up: 2 month follow up 2 month follow up. Due for labs DM: Reports overall feeling well. Medication side effects: No. Home sugar checks: 163 today fasting, and lunch 160. Hypoglycemic spells: No. Watching diet: No. Unexpected weight loss: No. Polyuria, polydipsia: No. Vision Changes: No. Foot lesions or numbness or pain: No. Was just released from wound clinic At last OV increased Levemir 30 units at QHS and Humalog 15 units TID with meals. Still taking Farxiga 10 mg daily. CKD, stage 4, following with Nephrology HTN: Taking Losartan 50 mg and Amlodipine 5 mg daily. Not currently checking BP at home. Lipids: Taking Liptor 40 mg at bed. Son present at today's appointment. Prefers to hold off on making medication adjustments. PAST MEDICAL HISTORY: PAST MEDICAL HISTORY Diagnosis Date Allergic rhinitis due to other allergen Essential hypertension, benign Type II or unspecified type diabetes mellitus without mention of complication, uncontrolled PAST SURGICAL HISTORY Procedure Laterality Date CATARACT EXTRACTION HX Right 10/26/2017 EGD W/O [facility] SPEC VARICIES INJ N/A 02/24/2022 LIG/TRNSXJ FLP TUBE ABDL/VAG APPR UNI/BI 1987 Tubal ligation LIGJ DIVJ AND/EXCJ VARICOSE VEIN CLUSTER 1 LEG 1995 Varicose Vein Surgery TONSILLECTOMY PRIMARY/SECONDARY Tonsillectomy ALLERGIES Diana Inhibitors and Neomycin MEDICATIONS Current Outpatient Medications Medication Sig losartan (COZAAR) 50 mg tablet Take 1 tablet by mouth once daily. insulin detemir U-100 (LEVEMIR) 100 unit/mL (3 mL) injection pen Inject 30 Units subcutaneously every morning. insulin lispro (HUMALOG KWIKPEN INSULIN) 100 unit/mL INJECT 15 UNITS SUBCUTANEOUSLY THREE TIMES DAILY WITH MEALS DIRECTED vitamin B complex (COMPLEX B-100 ORAL) Take 100 mg by mouth once daily. dapagliflozin propanediol (FARXIGA) 10 mg tablet Take 1 tablet by mouth daily with breakfast. amLODIPine (NORVASC) 5 mg tablet Take 1 tablet by mouth once daily. blood sugar diagnostic (BLOOD GLUCOSE TEST) test strip Test blood sugar(s) 3 times daily. Dx: 250.02. Insulin: Yes atorvastatin (LIPITOR) 40 mg tablet Take 1 tablet by mouth daily at bedtime. For cholesterol. metOLazone (ZAROXOLYN) 5 mg tablet Take 1 tablet by mouth once daily. clotrimazole-betamethasone (LOTRISONE) cream Apply to affected area two times a day. furosemide (LASIX) 40 mg tablet Take 2 tablets by mouth once daily. FLUoxetine (PROZAC) 10 mg capsule Take 1 capsule by mouth once daily. carvedilol (COREG) 12.5 mg tablet Take 1 tablet by mouth two times a day. blood sugar diagnostic (BLOOD GLUCOSE TEST) test strip Alvina test strips. Test blood sugars once daily as directed. Dx: E11.9. Insulin: Yes Insulin Syringe-Needle U-100 1 mL 29 gauge x 1/2" 1 Each once daily. USE ONE SYRINGE FOR EACH INSULIN DOSE/ 1 PER DAY insulin needles, DISPOSABLE, (PEN NEEDLE) 31 gauge x 5/16" Use 4 times daily to inject insulin Blood-Glucose Meter misc 1 Each once daily. Blood Sugar Diagnostic, Drum (ACCU-CHEK COMPACT TEST) strp Test blood sugar(s) 3 times daily. Dx:E11.9 . Insulin: Yes loratadine (CLARITIN) 10 mg tablet Take 1 tablet by mouth once daily. Cholecalciferol, Vitamin D3, 1,000 unit cap Take 1 capsule by mouth once daily. Insulin [place], Disposable, (RELION PEN NEEDLES) 32 x 5/32 " ndle Use as directed with insulin pen. 250.00. 4 injections/day. On insulin. Blood-Glucose Meter, Drum-type (ACCU-CHEK COMPACT PLUS CARE) kit Use as directed cyanocobalamin (VITAMIN B-12) 1,000 mcg tab Take 1 tablet by mouth once daily. Aspirin 81 mg Tab Take 81 mg by mouth. No current facility-administered medications for this visit. FAMILY HISTORY Problem Relation Age of Onset Diabetes Father Coronary Artery Disease Father Coronary Artery Disease Mother CABG age 80 Cataract Sister Blindness Sister Blindness Other Social History Tobacco Use Smoking status: Former Smokeless tobacco: Never Tobacco comments: Quit 1980s Vaping Use Vaping status: Never Used Substance Use Topics Alcohol use: No Drug use: No REVIEW OF SYSTEMS GENERAL: No weight loss, malaise or fevers/chills HEENT: Negative for frequent or significant headaches, No changes in hearing or vision. NECK: Negative for lumps, goiter, pain and significant neck swelling RESPIRATORY: Negative for cough, hemoptysis, wheezing, dyspnea or shortness of breath CARDIOVASCULAR: Negative for chest pain, leg swelling, orthopnea, or palpitations GI: No nausea, vomiting, or diarrhea/constipation. No hematochezia/melena. No heartburn or (more content not included)...[facility]02-18-2025 Telephone encounter Note* Telephone Encounter - Maciel Busby APRN.CNP - 11/14/2024 10:25 AM EST Noted. Okay to continue with the plan. Maciel Busby APRN.CNP [facility]02-18-2025 Miscellaneous Notes* Telephone Encounter - Maciel Busby APRN.CNP - 11/14/2024 10:25 AM EST Noted. Okay to continue with the plan. Maciel Busby APRN.CNP * Telephone Encounter - Judie Paiz RN - 11/14/2024 10:09 AM EST Joseph MICHELE with [facility] calls to let provider know that patient was seen today for eval of SN services. SN will continue to see patient once weekly x 5 weeks for wound care of left outer foot. Patient isgoing to wound center to see Dr. Carranza and they have those treatment orders just needing to extend nursing services to continue monitoring. No call back needed unless provider has questions. Judie Paiz RN documented in this encounterAsht[facility]ula [facility]02-[facility] Telephone encounter Note * Telephone Encounter - Judie Paiz RN - 11/14/2024 10:09 AM EST Joseph MICHELE with [facility] calls to let provider know that patient was seen today for eval of SN services. SN will continue to see patient once weekly x 5 weeks for wound care of left outer foot. Patient isgoing to wound center to see Dr. Carranza and they have those treatment orders just needing to extend nursing services to continue monitoring. No call back needed unless provider has questions. Judie Paiz RN [facility]02-12-2025 Telephone encounter Note* Telephone Encounter - Ave Toney - 11/08/2024 8:45 AM EST Prescription Refill Information The patient has been identified by name and date of : Yes Caregiver verified no other encounters exist for this prescription request: Yes Caregiver confirmed with patient/requestor that no other refills are due, in the near future, with this provider at this time: Yes The last office visit in the department: 09/26/24 Does the patient have a future office visit with this provider/department: Yes Requested Prescriptions Pending Prescriptions Disp Refills losartan (COZAAR) 50 mg tablet 90 tablet Sig: Take 1 tablet by mouth once daily. Ave Toney November 08, 2024 8:45 AM [facility]02-12-2025 Miscellaneous Notes* Telephone Encounter - Ave Toney - 11/08/2024 8:45 AM EST Prescription Refill Information The patient has been identified by name and date of : Yes Caregiver verified no other encounters exist for this prescription request: Yes Caregiver confirmed with patient/requestor that no other refills are due, in the near future, with this provider at this time: Yes The last office visit in the department: 09/26/24 Does the patient have a future office visit with this provider/department: Yes Requested Prescriptions Pending Prescriptions Disp Refills losartan (COZAAR) 50 mg tablet 90 tablet Sig: Take 1 tablet by mouth once daily. 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 October 26, 2024 8:45am Obesity chronic October 26, 2024 8:45am 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 inactive October 26, 2024 8:45am Debility acute November 23, 2024 9:00am Diabetes mellitus with diabetic polyneuropathy acute November 23, 2024 9:00am PAD (peripheral artery disease) acute November 23 025 9:00am Type 2 diabetes mellitus wit h foot ulcer acute November 23 9:00am 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 heart failure) chronic November 23 9:00am Essential hypertension chronic Fe bruary 2024 9:00am Obesity chronic November 23, 2024 9:00am 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 inactive October 9:00am SALGADO (dyspnea on exertion) acute January 29, 2025 3:27pm Atherosclerosis of coronary artery without angina pectoris chronic January 29, 2025 3: 27pm 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 heart failure) chronic January 29, 2025 3: 27pm Essential hypertension chronic Ma y 2024 3:27pm History of coronary artery stent placement September, chronic January 29, 2025 3: 27pm Hyperlipidemia chronic January 29, 2 025 3:27pm Ischemic cardiomyopathy chronic M ay 2024 3:27pm Secondary pulmonary arterial hypertension chronic January 29, 2025 3: 27pm [facility] Work Phone: 1(736) 528-982901-30-2025 Evaluation note* Diagnosis Onset Date Resolution Status Admit Date Debility acute October 26, 2024 8:45am Diabetes mellitus with diabetic polyneuropathy acute October 26, 2024 8:45am PAD (peripheral artery disease) acute October 26 8:45am Type 2 diabetes mellitus wit h foot ulcer acute October 26 8:45am 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 heart failure) chronic October 26 8:45am 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 October 26, 2024 8:45am Obesity chronic October 26, 2024 8:45am 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 inactive October 26, 2024 8:45am Debility acute November 23, 2024 9:00am Diabetes mellitus with diabetic polyneuropathy acute November 23, 2024 9:00am PAD (peripheral artery disease) acute November 23, 2 025 9:00am Type 2 diabetes mellitus wit h foot ulcer acute November 23, 2 025 9:00am 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 heart failure) chronic November 23, 2 025 9:00am Essential hypertension chronic Fe bruary 2024 9:00am Obesity chronic November 23, 2024 9:00am 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 inactive October 9:00am SALGADO (dyspnea on exertion) acute January 29, 2025 3:27pm Atherosclerosis of coronary artery without angina pectoris chronic January 29, 2025 3: 27pm 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 heart failure) chronic January 29, 2025 3: 27pm Essential hypertension chronic Ma y 2024 3:27pm History of coronary artery stent placement September, chronic January 29, 2025 3: 27pm Hyperlipidemia chronic January 29, 2 025 3:27pm Ischemic cardiomyopathy chronic M ay 2024 3:27pm Secondary pulmonary arterial hypertension chronic January 29, 2025 3: 27pm Cellulitis of right anterior lower leg acute February 05, 2025 1 :07pm Acute on chronic combined systolic (congestive) and diastolic (congestive) chronic February 05, 2025 1:07pm [facility] Work Phone: 1(220) 829-710301-30-2025 Evaluation note* Diagnosis Onset Date Resolution Status Admit Date Debility acute October 26, 2024 8:45am Diabetes mellitus with diabetic polyneuropathy acute October 26, 2024 8:45am PAD (peripheral artery disease) acute October 26 8:45am Type 2 diabetes mellitus wit h foot ulcer acute October 26 8:45am 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 heart failure) chronic October 26 8:45am 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 October 26, 2024 8:45am Obesity chronic October 26, 2024 8:45am 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 inactive October 26, 2024 8:45am Debility acute November 23, 2024 9:00am Diabetes mellitus with diabetic polyneuropathy acute November 23, 2024 9:00am PAD (peripheral artery disease) acute November 23, 2 025 9:00am Type 2 diabetes mellitus wit h foot ulcer acute November 23, 2 025 9:00am 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 heart failure) chronic November 23, 2 025 9:00am Essential hypertension chronic Fe bruary 2024 9:00am Obesity chronic November 23, 2024 9:00am 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 inactive October 9:00am SALGADO (dyspnea on exertion) acute January 29, 2025 3:27pm Atherosclerosis of coronary artery without angina pectoris chronic January 29, 2025 3: 27pm 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 heart failure) chronic January 29, 2025 3: 27pm Essential hypertension chronic Ma y 2024 3:27pm History of coronary artery stent placement September, chronic January 29, 2025 3: 27pm Hyperlipidemia chronic January 29, 2 025 3:27pm Ischemic cardiomyopathy chronic M ay 2024 3:27pm Secondary pulmonary arterial hypertension chronic January 29, 2025 3: 27pm Acute respiratory failure with hypoxia and hypercarbia acute February 05, 2025 1:07pm Cellulitis of right anterior lower leg acute February 05, 2025 1 :07pm Elevated troponin acute January 1:07pm Type 2 diabetes mellitus wit h foot ulcer acute February 05, 2025 1 :07pm Urinary tract infection acute M ay 2024 1:07pm Acute on chronic combined systolic (congestive) and diastolic (congestive) chronic February 05, 2025 1:07pm Atherosclerosis of coronary artery without angina pectoris chronic February 05, 2025 1 :07pm Chronic kidney disease (CKD) chronic February 05, 2025 1:07pm Essential hypertension chronic Ma y 2024 1:07pm Hyperlipidemia chronic February 05, 2025 1:07pm Secondary pulmonary arterial hypertension chronic February 05, 2025 1 :07pm ELIDA (acute kidney injury) resolved February 05, 2025 1:07pm [facility] [employer] Work Phone: 1(528) 725-902501-24-2025 Telephone encounter Note* Telephone Encounter - Rajni Jiménez RN - 10/20/2024 12:12 PM EST joseph with [facility] is calling to let pcp that they are re-certifying patient for nursing for help with wound care once weekly for the next 4 weeks. [facility]01-24-[facility]25 Miscellaneous Notes* Telephone Encounter - Rajni Jiménez RN - 10/20/2024 12:12 PM EST joseph with [facility] is calling to let pcp that they are re-certifying patient for nursing for help with wound care once weekly for the next 4 weeks. documented in this encounterAshtabula [facility] Hospital01-10-2025 NoteHNO ID: [id number] Author: JESSICA MCKINNON MA Service: ? Author Type: Digital Strategist Type: Progress Notes Filed: 10/06/2024 10:07 Note Text: POPULATION HEALTH NAVIGATION OUTREACH Action/FYI Patient is on [facility] CURRENT ROSTER Workbench list for below and needs appointment to address: DTaP,Tdap,Td Vaccine(1 - Tdap) Dilated Retinal Exam Advance Directive Discussion Hemoglobin A1C (%) Date Value 08/31/2024 5.5 09/22/2021 7.3 Patient due for: Controlling Blood Pressure Diabetic Eye Exam HBA1C - already order KED- CMP already ordered - needs [facility] MyChart Active: No, offered activation Yes - Declined Spoke to patient. Scheduled 11/[address] Elizabeth in [place] for eye exam. KED (uACR ) pended for PCP review - CMP already pending Declined to scheduled lab at this time as they want to wait to discuss with son. Reminded of them and fasting labs ordered. HCC: Yes HTN Focus Nadeen added to notes for upcoming OV Updated upcoming OV notes Please address due care gaps and HCC gap closure Reason for Outreach Care Gap/HCC or Scheduling Wellness Visits Care Gaps due: Controlling Blood Pressure Diabetic Eye Exam HBA1C KED Patient Contacted: Spoke to patient/parent/or legal guardian Patient identified by name and : Yes Care Gap/HCC/Scheduling Wellness actions taken: Patient scheduled/pended orders: Diabetic Eye Exam 11/27/2024 in [facility] with RUFINA SOARES - 2 mo follow up 12/08/2024 in [facility] with JENNIFER ELIZABETH - Diabetic eye exam Updated appointment note HCC related Navigation Signature: Jessica Mckinnon MA October 06, 2024 9:00 [facility]01-10-2025 History of Present illness Narrative* Jessica Mckinnon MA - 10/06/2024 9:00 AM EST POPULATION HEALTH NAVIGATION OUTREACH Action/FYI Patient is on [place] [facility] Workbench list for below and needs appointment to address: DTaP,Tdap,Td Vaccine(1 - Tdap) Dilated Retinal Exam Advance Directive Discussion Hemoglobin A1C (%) Date Value 08/31/2024 5.5 09/22/2021 7.3 Patient due for: Controlling Blood Pressure Diabetic Eye Exam HBA1C - already order KED- CMP already ordered - needs [facility] Active: No, offered activation Yes - Declined Spoke to patient. Scheduled 11/[address] Elizabeth in [place] for eye exam. KED ([facility] ) pended for PCP review - CMP already pending Declined to scheduled lab at this time as they want to wait to discuss with son. Reminded of them and fasting labs ordered. HCC: Yes HTN Focus Nadeen added to notes for upcoming OV Updated upcoming OV notes Please address due care gaps and HCC gap closure Reason for Outreach Care Gap/HCC or Scheduling Wellness Visits Care Gaps due: Controlling Blood Pressure Diabetic Eye Exam HBA1C KED Patient Contacted: Spoke to patient/parent/or legal guardian Patient identified by name and : Yes Care Gap/HCC/Scheduling Wellness actions taken: Patient scheduled/pended orders: Diabetic Eye Exam 11/27/2024 in [facility] with RUFINA SOARES - 2 mo follow up 12/08/2024 in [facility] with JENNIFER ELIZABETH - Diabetic eye exam Updated appointment note HCC related Navigation Signature: Jessica Mckinnon MA October 06, 2024 9:00 AM documented in this encounterAsht[facility]01-[facility] NotePatient Outreach (NETNAV) ROSA MYERS ([id number]) 1950 F Date Time Provider Department 10/06/24 JESSICA MCKINNON During your visit today, we recorded the following information about you: Jessica Mckinnon MA 10/06/2024 10:07 AM Addendum POPULATION HEALTH NAVIGATION OUTREACH Action/FYI Patient is on [place] [facility] Workbench list for below and needs appointment to address: DTaP,Tdap,Td Vaccine(1 - Tdap) Dilated Retinal Exam Advance Directive Discussion Hemoglobin A1C (%) Date Value 08/31/2024 5.5 09/22/2021 7.3 Patient due for: Controlling Blood Pressure Diabetic Eye Exam HBA1C - already order KED- CMP already ordered - needs [facility] MyChart Active: No, offered activation Yes - Declined Spoke to patient. Scheduled 11/[address] Elizabeth in [place] for eye exam. KED (uACR ) pended for PCP review - CMP already pending Declined to scheduled lab at this time as they want to wait to discuss with son. Reminded of them and fasting labs ordered. HCC: Yes HTN Focus Nadeen added to notes for upcoming OV Updated upcoming OV notes Please address due care gaps and HCC gap closure Reason for Outreach Care Gap/HCC or Scheduling Wellness Visits Care Gaps due: Controlling Blood Pressure Diabetic Eye Exam HBA1C KED Patient Contacted: Spoke to patient/parent/or legal guardian Patient identified by name and : Yes Care Gap/HCC/Scheduling Wellness actions taken: Patient scheduled/pended orders: Diabetic Eye Exam 11/27/2024 in [facility] with RUFINA SOARES - 2 mo follow up 12/08/2024 in [facility] with JENNIFER ELIZABETH - Diabetic eye exam Updated appointment note HCC related Navigation Signature: Jessica Mckinnon MA October 06, 2024 9:00 AM Allergies As of Date: 10/06/2024 Noted Allergy Reaction DIANA INHIBITORS 07/17/2005 NEOMYCIN 07/17/2005 Date Reviewed: 09/26/2024 Reviewed by: Yaz Christy MA - Fully Assessed Reason for Visit: Population Health Navigation Outreach [[id number]] Cmt: Nadeen [facility] - [place] [facility] Primary Visit Diagnosis:Type 2 diabetes mellitus with chronic kidney disease, with long-term current use of insulin, unspecified CKD stage (HCC) [E11.22, Z79.4] Order(s):ALBUMIN/CREATININE RATIO, URINE [SQUACR] Order #: [id number] FUTURE Prescriptions as of 10/09/2024 - insulin detemir U-100 (LEVEMIR) 100 unit/mL (3 mL) injection pen Inject 30 Units subcutaneously every morning. - insulin lispro (HUMALOG KWIKPEN INSULIN) 100 unit/mL INJECT 15 UNITS SUBCUTANEOUSLY THREE TIMES DAILY WITH MEALS DIRECTED - losartan (COZAAR) 50 mg tablet Take 50 mg by mouth once daily. - vitamin B complex (COMPLEX B-100 ORAL) Take 100 mg by mouth once daily. - dapagliflozin propanediol (FARXIGA) 10 mg tablet Take 1 tablet by mouth daily with breakfast. - amLODIPine (NORVASC) 5 mg tablet Take 1 tablet by mouth once daily. - blood sugar diagnostic (BLOOD GLUCOSE TEST) test strip Test blood sugar(s) 3 times daily. Dx: 250.02. Insulin: Yes - atorvastatin (LIPITOR) 40 mg tablet Take 1 tablet by mouth daily at bedtime. For cholesterol. - metOLazone (ZAROXOLYN) 5 mg tablet Take 1 tablet by mouth once daily. - clotrimazole-betamethasone (LOTRISONE) cream Apply to affected area two times a day. - furosemide (LASIX) 40 mg tablet Take 2 tablets by mouth once daily. - FLUoxetine (PROZAC) 10 mg capsule Take 1 capsule by mouth once daily. - carvedilol (COREG) 12.5 mg tablet Take 1 tablet by mouth two times a day. - blood sugar diagnostic (BLOOD GLUCOSE TEST) test strip Alvina test strips. Test blood sugars once daily as directed. Dx: E11.9. Insulin: Yes - Insulin Syringe-Needle U-100 1 mL 29 gauge x 1/2" 1 Each once daily. USE ONE SYRINGE FOR EACH INSULIN DOSE/ 1 PER DAY - insulin needles, DISPOSABLE, (PEN NEEDLE) 31 gauge x 5/16" Use 4 times daily to inject insulin - Blood-Glucose Meter misc 1 Each once daily. - Blood Sugar Diagnostic, Drum (ACCU-CHEK COMPACT TEST) strp Test blood sugar(s) 3 times daily. Dx:E11.9 . Insulin: Yes - loratadine (CLARITIN) 10 mg tablet Take 1 tablet by mouth once daily. - Cholecalciferol, Vitamin D3, 1,000 unit cap Take 1 capsule by mouth once daily. - Insulin Center [place], Disposable, (RELION PEN NEEDLES) 32 x 5/32 " ndle Use as directed with insulin pen. [...] once daily. Problem List As Of Date 10/06/2024 Noted Resolved BENIGN HYPERTENSION [I10] 07/17/2005 Hyperlipidemia [E78.5] 07/17/2005 OSTEOARTHROS NOS-UNSPEC [M19.90] 07/17/2005 Allergic rhinitis [J30.9] 07/17/2005 DIFFUS CYSTIC MAST (more content not included)...[facility] 09-29-2024 Telephone encounter Note* Telephone Encounter - Amado James MD - 09/29/2024 10:52 AM EST Noted; continue with current dose of insulin Amado James MD [facility]01-03-2025 Miscellaneous Notes* Telephone Encounter - Amado James MD - 09/29/2024 10:52 AM EST Noted; continue with current dose of insulin Amado James MD * Telephone Encounter - Elsie Brock LPN - 09/29/2024 10:06 AM EST Joseph from [facility] calling to confirm pt's insulin dosages. Advised her of instructions per Epic. She verbalizes understanding. She wanted to let pcp know that pt's fasting blood sugar this am was 189. Pt checks blood sugar 3 xs /day with meals. Pt reports that her blood sugars yesterday were between 200-260 by dinner time. They will be seeing pt once a week for 2 more weeks until the end of her episode and then they will re evaluate. She advises pt's toes are looking better and pt follws with wound center and Dr Erwin(quality control projectionist). Elsie Brock LPN documented in this encounterAshtabula [facility] Hospital01-03-2025 Telephone encounter Note * Telephone Encounter - Elsie Brock LPN - 09/29/2024 10:06 AM EST Joseph from [facility] calling to confirm pt's insulin dosages. Advised her of instructions per Epic. She verbalizes understanding. She wanted to let pcp know that pt's fasting blood sugar this am was 189. Pt checks blood sugar 3 xs /day with meals. Pt reports that her blood sugars yesterday were between 200-260 by dinner time. They will be seeing pt once a week for 2 more weeks until the end of her episode and then they will re evaluate. She advises pt's toes are looking better and pt follws with wound center and Dr Erwin(quality control projectionist). Elsie Brock LPN [facility]12-31-2024 Instructions* Patient Instructions* Yaz Christy MA - 09/26/2024 9:49 AM EST Increase Insulin - Levemir 30 units once daily and Humalog 15 units 3 x per day with meals. Update office in a couple weeks with readings to adjust if needed. documented in this encounterAshtabula [facility] Hospital12-31-2024 History of Present illness Narrative* Amado James MD - 09/26/2024 9:40 AM EST Chief Complaint Patient presents with: Follow Up: 1 week DM HPI Rosa Myers is a 74 year old female who presents here today for follow up. Pt here today with her son. Pt here for a 1 week follow up on her blood sugars. Her son has been helping her to manage the sugars and her Insulin. Rufina Soares has been working with getting pt & son on adjusting insulin and blood sugar control. Pt & Son were advised to increase Lantus to 20 units at bedtime and increase Humalog to 10 units with meals on 09/10/24 and to follow up with PCP in a week. Pt blood sugarson 09/11/24 were reported to be running 267-285 in AM, 297-350 at lunch, and 274-348 at Supper. Pt is checking BS 2-3 x per day. FBS in the mid 200's. Before lunch and dinner around 275, with occasional reading above 300. Patient states that it does go above 300 if she eats potatoes or sweets. Son and patient report that sugars are overall the same, prior to increasing the Insulin medication. Denies any low blood sugars. Overall reports feeling okay at this time. Pt was previously having low blood sugars and Insulin had to be tapered back. Was hospitalized twice and did have to go to a [facility] and stay, but is now back home. Plans on staying home. Pt was previously prior to Hospitalizations was on Levemir 65 units once daily and Humalog 25 unitsTID. Past medical history, appointments, medications, allergies reviewed. [...] on File Prior to Visit Medication Sig losartan (COZAAR) 50 mg tablet Take 50 mg by mouth once daily. vitamin B complex (COMPLEX B-100 ORAL) Take 100 mg by mouth once daily. dapagliflozin propanediol (FARXIGA) 10 mg tablet Take 1 tablet by mouth daily with breakfast. amLODIPine (NORVASC) 5 mg tablet Take 1 tablet by mouth once daily. blood sugar diagnostic (BLOOD GLUCOSE TEST) test strip Test blood sugar(s) 3 times daily. Dx: 250.02. Insulin: Yes insulin glargine (LANTUS SOLOSTAR U-100 INSULIN) 100 unit/mL (3 mL) Inject 60 Units subcutaneously once daily. (Patient not taking: Reported on 08/28/2024) atorvastatin (LIPITOR) 40 mg tablet Take 1 tablet by mouth daily at bedtime. For cholesterol. metOLazone (ZAROXOLYN) 5 mg tablet Take 1 tablet by mouth once daily. insulin lispro (HUMALOG KWIKPEN INSULIN) 100 unit/mL INJECT 25 UNITS SUBCUTANEOUSLY THREE TIMES DAILY WITH MEALS DIRECTED clotrimazole-betamethasone (LOTRISONE) cream Apply to affected area two times a day. (Patient not taking: Reported on 08/28/2024) furosemide (LASIX) 40 mg tablet Take 2 tablets by mouth once daily. FLUoxetine (PROZAC) 10 mg capsule Take 1 capsule by mouth once daily. carvedilol (COREG) 12.5 mg tablet Take 1 tablet by mouth two times a day. valsartan (DIOVAN) 160 mg tablet Take 1 tablet by mouth once daily. (Patient not taking: Reported on 08/28/2024) blood sugar diagnostic (BLOOD GLUCOSE TEST) test strip Alvina test strips. Test blood sugars once daily as directed. Dx: E11.9. Insulin: Yes Insulin Syringe-Needle U-100 1 mL 29 gauge x 1/2" 1 Each once daily. USE ONE SYRINGE FOR EACH INSULIN DOSE/ 1 PER DAY insulin needles, DISPOSABLE, (PEN NEEDLE) 31 gauge x 5/16" Use 4 times daily to inject insulin Blood-Glucose Meter misc 1 Each once daily. Blood Sugar Diagnostic, Drum (ACCU-CHEK COMPACT TEST) strp Test blood sugar(s) 3 times daily. Dx:E11.9 . Insulin: Yes loratadine (CLARITIN) 10 mg tablet Take 1 tablet by mouth once daily. (Patient not taking: Reportedon 08/28/2024) Cholecalciferol, Vitamin D3, 1,000 unit cap Take 1 capsule by mouth once daily. Insulin Center [place], Disposable, (RELION PEN NEEDLES) 32 x 5/32 " ndle Use as directed with insulin pen. 250.00. 4 injections/day. On insulin. Blood-Glucose Meter, Drum-type (ACCU-CHEK COMPACT PLUS CARE) kit Use as directed cyanocobalamin (VITAMIN B-12) 1,000 mcg tab Take 1 tablet by mouth once daily. (Patient not taking:Reported on 08/28/2024) Aspirin 81 mg Tab Take 81 mg by mouth. No current facility-administered medications on file prior to visit. Social History Social History Tobacco Use Smoking status: Former Smokeless tobacco: Never Tobacco comments: Quit 1980s Vaping Use Vaping status: Never Used Substance Use Topics Alcohol use: No Drug use: No EXAM: BP 108/60 (BP Site: Left Arm, BP Position: Sitting, BP Cuff Size: Regular Adult) Pulse 76 Resp 20 Wt 110.3 kg (243 lb 2.7 oz) General Appearance: Well appearing, alert, in no acute distress, well-hydrated, well nourished and Obese. Using a cane to ambulate into the office today. Skin: Scabs noted in center of forehead and end of nose, due to patient picking. Lungs: Lungs clear to auscultation. No wheezing, rhonchi, rales.. Heart: RRR without murmur, gallop, or rubs. No ectopy. Health Maintenance List DTaP,Tdap,Td Vaccine(1 - Tdap) Never done Dilated Retinal Exam due on 03/11/2019 Advance Directive Discussion due on 09/27/2023 Influenza Vaccine(1) due on 03/26/2025 RSV Vaccine(1 - 1-dose 75+ series) due on 07/11/2025 Shingrix Vaccine(1 of 2) due on 07/11/2025 Covid-19 Vaccine( - season) due on 07/11/2025 Pneumococcal Vaccine: 50+(3 of 3 - PCV20 or PCV21) due on 07/11/2025 HbA1C due on 03/01/2025 Depression Screening due on 04/10/2025 Anxiety Screening due on 04/10/2025 Diabetic Foot Exam due on 07/06/2025 Annual PCP Team Chronic Disease Visit due on 08/28/2025 BP Controlled (<130/80) due on 08/28/2025 LDL Cholesterol due on 08/31/2025 Serum Creatinine due on 08/31/2025 Hemoglobin/Hematocrit due on 08/31/2025 Hepatitis C Screening Completed Bone Density Screening Addressed Mammogram Screening Discontinued Colorectal Cancer Screening Discontinued Data reviewed Appointment on 08/31/2024 Component Date Value Protein, Total 08/31/2024 6.9 Albumin 08/31/2024 3.7 (L) Calcium, Total 08/31/2024 9.4 Bilirubin, Total 08/31/2024 0.4 Alkaline Phosphatase 08/31/2024 76 AST 08/31/2024 11 (L) ALT 08/31/2024 10 Glucose 08/31/2024 271 (H) BUN 08/31/2024 28 (H) Creatinine 08/31/2024 1.79 (H) Sodium 08/31/2024 137 Potassium 08/31/2024 4.4 Chloride 08/31/2024 100 CO2 08/31/2024 22 Anion Gap 08/31/2024 15 Estimated Glomerular Checo* 08/31/2024 29 (L) Cholesterol, Total 08/31/2024 116 Triglyceride 08/31/2024 133 HDL Cholesterol 08/31/2024 35 (L) Non HDL Cholesterol 08/31/2024 81 Fasting Time 08/31/2024 12 VLDL Cholesterol 08/31/2024 27 TC:HDL Ratio 08/31/2024 3.31 LDL Cholesterol 08/31/2024 54 LDL:HDL Ratio 08/31/2024 1.54 Hemoglobin A1C 08/31/2024 5.5 Estimated Average Glucose 08/31/2024 111 WBC 08/31/2024 7.72 RBC 08/31/2024 3.29 (L) Hemoglobin 08/31/2024 8.3 (L) Hematocrit 08/31/2024 28.2 (L) MCV 08/31/2024 85.7 MCH 08/31/2024 25.2 (L) MCHC 08/31/2024 29.4 (L) RDW-CV 08/31/2024 18.2 (H) Platelet Count 08/31/2024 246 MPV 08/31/2024 11.3 Neutrophils % 08/31/2024 74.7 Abs Neut 08/31/2024 5.77 Lymphocytes % 08/31/2024 14.5 Abs Lymph 08/31/2024 1.12 Monocytes % 08/31/2024 7.1 Abs Hopkins 08/31/2024 0.55 Eosinophils % 08/31/2024 2.6 Abs Eosin 08/31/2024 0.20 Basophils % 08/31/2024 0.8 Abs Baso 08/31/2024 0.06 Immature Granulocytes % 08/31/2024 0.3 Abs Immature Gran 08/31/2024 <0.03 NRBC 08/31/2024 0.0 Absolute nRBC 08/31/2024 <0.01 Diff Type 08/31/2024 Auto ASSESSMENT/PLAN: 1. Type 2 diabetes mellitus with chronic kidney disease, with long-term current use of insulin, unspecified CKD stage (HCC) - ICD9: 250.40, 585.9, V58.67, ICD10: E11.22, Z79.4 (primary diagnosis) - Uncontrolled Increase Levemir ot 30 units, humalog to 15 tid Call office with glucose readings in 2 weeks - HEMOGLOBIN A1C - COMPREHENSIVE METABOLIC PANEL - LIPID PANEL BASIC 2. Essential hypertension, benign - ICD9: 401.1, ICD10: I10 - Controlled - Continue current medications - Recommend home blood pressure monitoring, to bring results to next visit - Encouraged sodium restriction, DASH or Mediterranean diet - Recommend regular aerobic exercise - COMPREHENSIVE METABOLIC PANEL - LIPID PANEL BASIC 3. Hyperlipidemia, unspecified hyperlipidemia type - ICD9: 272.4, ICD10: E78.5 - Controlled - COMPREHENSIVE METABOLIC PANEL - LIPID PANEL BASIC 4. Chronic kidney disease, stage 4 (severe) ([facility]) - ICD9: 585.4, ICD10: N18.4 - COMPREHENSIVE METABOLIC PANEL 5. Chronic anemia - ICD9: 285.9, ICD10: D64.9 - COMPLETE BLOOD COUNT AND DIFFERENTIAL 6. Type 2 diabetes mellitus with stage 3b chronic kidney disease, without long- term current use of insulin ([facility]) - ICD9: 250.40, 585.3, ICD10: E11.22, N18.32 - INSULIN LISPRO (U-100) 100 UNIT/ML SUBCUTANEOUS PEN 7. Controlled type 2 diabetes mellitus without complication, with long-term current use of insulin ([facility]) - ICD9: 250.00, V58.67, ICD10: E11.9, Z79.4 - INSULIN LISPRO (U-100) 100 UNIT/ML SUBCUTANEOUS PEN Call office with glucose readings in 2 weeks, may need to increase insulin further Follow up in 2 months I agree with the Chief Complaint, ROS, and Past Histories independently gathered by the clinical cryptologic support specialist and the remaining scribed note accurately describes my personal service to the patient. Medical Decision Making: Problems: Moderate: 2+ stable chronic illnesses and 1+ chronic illnesses with change Data: Unique test(s) ordered: 3+ Risk: Moderate: Drug management Medical Decision Making Level: 4 - Moderate Amado James MD The documentation for this note was completed by Yaz Christy MA acting as scribe for Amado James MD. September 26, 2024 9:32 AM. Yaz Christy MA documented in this encounterAshtabula [facility] Hospital12-31-2024 NoteHNO ID: [id number] Author: AMADO JAMES MD Service: ? Author Type: Physician Type: Progress Notes Filed: 09/26/2024 14:09 Note Text: Chief Complaint Patient presents with: Follow Up: 1 week DM HPI Rosa Myers is a 74 year old female who presents here today for follow up. Pt here today with her son. Pt here for a 1 week follow up on her blood sugars. Her son has been helping her to manage the sugars and her Insulin. Rufina Soares has been working with getting pt AND son on adjusting insulin and blood sugar control. Pt AND Son were advised to increase Lantus to 20 units at bedtime and increase Humalog to 10 units with meals on 09/10/24 and to follow up with PCP in a week. Pt blood sugars on 09/11/24 were reported to be running 267-285 in AM, 297-350 at lunch, and 274-348 at Supper. Pt is checking BS 2-3 x per day. FBS in the mid 200's. Before lunch and dinner around 275, with occasional reading above 300. Patient states that it does go above 300 if she eats potatoes or sweets. Son and patient report that sugars are overall the same, prior to increasing the Insulinmedication. Denies any low blood sugars. Overall reports feeling okay at this time. Pt was previously having low blood sugars and Insulin had to be tapered back. Was hospitalized twice and did have to go to a [facility] and stay, but is now back home. Plans on staying home. Pt was previously prior to Hospitalizations was on Levemir 65 units once daily and Humalog 25 units TID. Past medical history, appointments, medications, allergies reviewed. [...] on File Prior to Visit Medication Sig losartan (COZAAR) 50 mg tablet Take 50 mg by mouth once daily. vitamin B complex (COMPLEX B-100 ORAL) Take 100 mg by mouth once daily. dapagliflozin propanediol (FARXIGA) 10 mg tablet Take 1 tablet by mouth daily with breakfast. amLODIPine (NORVASC) 5 mg tablet Take 1 tablet by mouth once daily. blood sugar diagnostic (BLOOD GLUCOSE TEST) test strip Test blood sugar(s) 3 times daily. Dx: 250.02. Insulin: Yes insulin glargine (LANTUS SOLOSTAR U-100 INSULIN) 100 unit/mL (3 mL) Inject 60 Units subcutaneously once daily. (Patient not taking: Reported on 08/28/2024) atorvastatin (LIPITOR) 40 mg tablet Take 1 tablet by mouth daily at bedtime. For cholesterol. metOLazone (ZAROXOLYN) 5 mg tablet Take 1 tablet by mouth once daily. insulin lispro (HUMALOG KWIKPEN INSULIN) 100 unit/mL INJECT 25 UNITS SUBCUTANEOUSLY THREE TIMES DAILY WITH MEALS DIRECTED clotrimazole-betamethasone (LOTRISONE) cream Apply to affected area two times a day. (Patient not taking: Reported on 08/28/2024) furosemide (LASIX) 40 mg tablet Take 2 tablets by mouth once daily. FLUoxetine (PROZAC) 10 mg capsule Take 1 capsule by mouth once daily. carvedilol (COREG) 12.5 mg tablet Take 1 tablet by mouth two times a day. valsartan (DIOVAN) 160 mg tablet Take 1 tablet by mouth once daily. (Patient not taking: Reported on 08/28/2024) blood sugar diagnostic (BLOOD GLUCOSE TEST) test strip Alvina test strips. Test blood sugars once daily as directed. Dx: E11.9. Insulin: Yes Insulin Syringe-Needle U-100 1 mL 29 gauge x 1/2" 1 Each once daily. USE ONE SYRINGE FOR EACH INSULIN DOSE/ 1 PER DAY insulin needles, DISPOSABLE, (PEN NEEDLE) 31 gauge x 5/16" Use 4 times daily to inject insulin Blood-Glucose Meter misc 1 Each once daily. Blood Sugar Diagnostic, Drum (ACCU-CHEK COMPACT TEST) strp Test blood sugar(s) 3 times daily. Dx:E11.9 . Insulin: Yes loratadine (CLARITIN) 10 mg tablet Take 1 tablet by mouth once daily. (Patient not taking: Reported on 08/28/2024) Cholecalciferol, Vitamin D3, 1,000 unit cap Take 1 capsule by mouth once daily. Insulin Center [place], Disposable, (RELION PEN NEEDLES) 32 x 5/32 " ndle Use as directed with insulin pen. 250.00. 4 injections/day. On insulin. Blood-Glucose Meter, Drum-type (ACCU-CHEK COMPACT PLUS CARE) kit Use as directed cyanocobalamin (VITAMIN B-12) 1,000 mcg tab Take 1 tablet by mouth once daily. (Patie (more content not included)...[facility]12-20-2024 Telephone encounter Note* Telephone Encounter - Maciel Busby APRN.CNP - 09/15/2024 11:22 AM EST Noted. Maciel Busby APRN.CNP [facility]12-20-2024 Miscellaneous Notes* Telephone Encounter - Maciel Busby APRN.CNP - 09/15/2024 11:22 AM EST Noted. Maciel Busby APRN.CNP * Telephone Encounter - Juana Castaneda RN - 09/15/2024 10:40 AM EST Juana calling from [facility] to report plan of care for patient and long-term will continue to visit patient 1 time a week for 2 weeks. Retirement will continue work with patient on woundcare. No call back needed. Juana Castaneda RN documented in this encounterAshtabula General Hospital12-20-2024 Telephone encounter Note * Telephone Encounter - Juana Castaneda RN - 09/15/2024 10:40 AM EST Juana calling from [facility] to report plan of care for patient and long-term will continue to visit patient 1 time a week for 2 weeks. Retirement will continue work with patient on woundcare. No call back needed. Juana Castaneda RN [facility]12-18-2024 Telephone encounter Note* Telephone Encounter - Marguerite Rubio LPN - 09/13/2024 10:58 AM EST Patient son notified of results, verbalizes understanding of instructions. Appt is made in 1 week follow up for DM. Marguerite Rubio LPN [facility]12-18-2024 Miscellaneous Notes* Telephone Encounter - Marguerite Rubio LPN - 09/13/2024 10:58 AM EST Patient son notified of results, verbalizes understanding of instructions. Appt is made in 1 week follow up for DM. Marguerite Rubio LPN * Telephone Encounter - Rufina Soares APRN.METALLURGIST HELPER - 09/13/2024 10:50 AM EST Can you please call the patient's son back and let them know that Levemir and Lantus are both long-acting insulin. She should only being taking one of these. At last office visit instructed to increase the Lantus per algorithm pending what her fasting sugars are. I would recommend increasing Lantus 20 units at bedtime and increase Humalog 10 units with meals. This may need to be adjusted. I would recommend follow-up with PCP in 1 week. Rufina Soares APRN.RENEE Example insulin titration schedule: Start taking 10 units daily of Lantus. Check your blood sugar every morning before eating or drinking anything (fasting blood sugar level). Adjust your insulin every 3 days as follows: If your blood sugar is above 129, INCREASE your insulin by 2 unit. If your blood sugar is 80-129, CONTINUE your current insulin dose. If your blood sugar is less than 80, DECREASE your insulin by 2 unit. Continue this method until you reach your target fasting blood sugar level consistently (80-130) * Telephone Encounter - Kathi Crane LPN - 09/12/2024 2:20 PM EST Son called back and pt is on the following: Lantus 10 units in the evening Levemir 10 units before bed Humalog on a sliding scale. Pt takes her blood sugar and then goes to sliding scale to see how muchto take. Pt does this 3 times a day. Kathi Crane LPN * Telephone Encounter - Marguerite Rubio LPN - 09/11/2024 3:34 PM EST TC to pt. LM to call office, ask for triage nurse to get results. Marguerite Rubio LPN * Telephone Encounter - Rufina Soares APRN.RENEE - 09/11/2024 3:29 PM EST Can you please call the patient's son and ask what dosing insulin are they up to at this time? Has he been titrating up the Lantus? How much Humalog has she been taking with her meals? Rufina Soares APRN.RENEE * Telephone Encounter - Juana Castaneda RN - 09/11/2024 9:25 AM EST Patient's son Marcell calls with patient's blood sugars. Date AM Lunch Supper 09/07 [phone] 09/08 [phone] 09/09 [phone] Juana Castaneda RN documented [facility] this encounter[facility]12[facility] Telephone encounter Note * Telephone Encounter - Rufina Soares APRN.CNP - 09/13/2024 10:50 AM EST Can you please call the patient's son back and let them know that Levemir and Lantus are both long-acting insulin. She should only being taking one of these. At last office visit instructed to increase the Lantus per algorithm pending what her fasting sugars are. I would recommend increasing Lantus 20 units at bedtime and increase Humalog 10 units with meals. This may need to be adjusted. I would recommend follow-up with PCP in 1 week. Rufina Soares APRN.RENEE Example insulin titration schedule: Start taking 10 units daily of Lantus. Check your blood sugar every morning before eating or drinking anything (fasting blood sugar level). Adjust your insulin every 3 days as follows: If your blood sugar is above 129, INCREASE your insulin by 2 unit. If your blood sugar is 80-129, CONTINUE your current insulin dose. If your blood sugar is less than 80, DECREASE your insulin by 2 unit. Continue this method until you reach your target fasting blood sugar level consistently (80-130) [facility]12-17-2024 Telephone encounter Note* Telephone Encounter - Kathi Crane LPN - 09/12/2024 2:20 PM EST Son called back and pt is on the following: Lantus 10 units in the evening Levemir 10 units before bed Humalog on a sliding scale. Pt takes her blood sugar and then goes to sliding scale to see how muchto take. Pt does this 3 times a day. Kathi Crane LPN [facility]12-16-2024 Telephone encounter Note* Telephone Encounter - Marguerite Rubio LPN - 09/11/2024 3:34 PM EST TC to pt. LM to call office, ask for triage nurse to get results. Marguerite Rubio LPN [facility]12-16-2024 Telephone encounter Note* Telephone Encounter - Rufina Soares APRN.METALLURGIST HELPER - 09/11/2024 3:29 PM EST Can you please call the patient's son and ask what dosing insulin are they up to at this time? Has he been titrating up the Lantus? How much Humalog has she been taking with her meals? Rufina Soares APRN.METALLURGIST HELPER [facility]12-16-2024 Telephone encounter Note* Telephone Encounter - Juana Castaneda RN - 09/11/2024 9:25 AM EST Patient's son Marcell calls with patient's blood sugars. Date AM Lunch Supper 09/07 [phone] 09/08 [phone] 09/09 [phone] Juana Castaneda RN [facility]12-13-2024 Telephone encounter Note* Telephone Encounter - Mariza Graham MA - 09/08/2024 1:25 PM EST Isabel notified and voiced understanding. Mariza Graham MA [facility]12-13-2024 Miscellaneous Notes* Telephone Encounter - Mariza Graham MA - 09/08/2024 1:25 PM EST Isabel notified and voiced understanding. Mariza Graham MA * Telephone Encounter - Amado James MD - 09/08/2024 12:00 PM EST OK for one more visit as requested Amado James MD * Telephone Encounter - Rajni Jiménez RN - 09/08/2024 11:05 AM EST Isabel from [facility] is calling requesting an order for 1 more additional visit to see patient next week as patient was to receive paperwork in the mail that she was to go over with patient and she hasnot received it yet. Nurse is hoping that it will arrive by this time next week. please review and advise and contact nurse back with information documented in this encounterAsht[facility]ula [facility]12-13-2024 Telephone encounter Note * Telephone Encounter - Amado James MD - 09/08/2024 12:00 PM EST OK for one more visit as requested Amado James MD [facility]12-13-2024 Telephone encounter Note* Telephone Encounter - Rajni Jiménez RN - 09/08/2024 11:05 AM EST Isabel from [facility] is calling requesting an order for 1 more additional visit to see patient next week as patient was to receive paperwork in the mail that she was to go over with patient and she hasnot received it yet. Nurse is hoping that it will arrive by this time next week. please review and advise and contact nurse back with information [facility]12-09-2024 Telephone encounter Note* Telephone Encounter - Mariza Graham MA - 09/04/2024 3:46 PM EST Isabel notified. Mariza Graham MA [facility]12-09-2024 Miscellaneous Notes* Telephone Encounter - Mariza Graham MA - 09/04/2024 3:46 PM EST Isabel notified. Mariza Graham MA * Telephone Encounter - Amado James MD - 09/04/2024 3:00 PM EST Ok for verbal ok to follow up with patient on 09/08/24 as requested Amado James MD * Telephone Encounter - Angelica Nassar LPN - 09/04/2024 9:57 AM EST Isabel community mental health social worker from [facility] is asking for a verbal ok to follow up with patient on 09/08/24. documented in this encounterAs[facility]12-[facility]-2024 Telephone encounter Note * Telephone Encounter - Amado James MD - 09/04/2024 3:00 PM EST Ok for verbal ok to follow up with patient on 09/08/24 as requested Amado James MD [facility]12-09-2024 Telephone encounter Note* Telephone Encounter - Mariza Graham MA - 09/04/2024 10:34 AM EST Pt son Marcell notified. Mariza Graham MA [facility]12-09-2024 Miscellaneous Notes* Telephone Encounter - Mariza Graham MA - 09/04/2024 10:34 AM EST Pt son Marcell notified. Mariza Graham MA * Telephone Encounter - Marguerite Rubio LPN - 09/01/2024 2:58 PM EST TC to Pt. son Unable to LM due to the mailbox is full. Will try again later. Marguerite Rubio LPN * Telephone Encounter - Rufina Soares APRN.RENEE - 09/01/2024 2:52 PM EST Can you please call the patient's son back and let them know that I would recommend starting back on the Levemir, we can start at 10 units at bedtime. Continue to monitor fasting sugars in the morning. We can titrate this up pending the morning readings that she gets. She can continue with Humalog sliding scale for right now. Please update me in the next 3 to 5 days with readings. Example insulin titration schedule: Start taking 10 units daily of Lantus. Check your blood sugar every morning before eating or drinking anything (fasting blood sugar level). Adjust your insulin every 3 days as follows: If your blood sugar is above 129, INCREASE your insulin by 2 unit. If your blood sugar is 80-129, CONTINUE your current insulin dose. If your blood sugar is less than 80, DECREASE your insulin by 2 unit. Continue this method until you reach your target fasting blood sugar level consistently (80-130) * Telephone Encounter - Marguerite Rubio LPN - 09/01/2024 2:31 PM EST Pt son called with Pt blood sugars from the week. Tu - morning -187 noon- 230 evening - 237 Wed- morning -207 noon - 262 evening - 275 Thur - morning -256 noon - 303 evening -278 Please let Pt and son know if you want changes. Marguerite Rubio LPN documented in this encounterAs[facility]12-[facility]-2024 Telephone encounter Note * Telephone Encounter - Angelica Nassar LPN - 09/04/2024 9:57 AM EST Isabel community mental health social worker from [facility] Home [facility] is asking for a verbal ok to follow up with patient on 09/08/24. [facility]12-06-2024 Telephone encounter Note* Telephone Encounter - Marguerite Rubio LPN - 09/01/2024 2:58 PM EST TC to Pt. son Unable to LM due to the mailbox is full. Will try again later. Marguerite Rubio LPN [facility]12-06-2024 Telephone encounter Note* Telephone Encounter - Rufina Soares APRN.RENEE - 09/01/2024 2:52 PM EST Can you please call the patient's son back and let them know that I would recommend starting back on the Levemir, we can start at 10 units at bedtime. Continue to monitor fasting sugars in the morning. We can titrate this up pending the morning readings that she gets. She can continue with Humalog sliding scale for right now. Please update me in the next 3 to 5 days with readings. Example insulin titration schedule: Start taking 10 units daily of Lantus. Check your blood sugar every morning before eating or drinking anything (fasting blood sugar level). Adjust your insulin every 3 days as follows: If your blood sugar is above 129, INCREASE your insulin by 2 unit. If your blood sugar is 80-129, CONTINUE your current insulin dose. If your blood sugar is less than 80, DECREASE your insulin by 2 unit. Continue this method until you reach your target fasting blood sugar level consistently (80-130) [facility]12-06-2024 Telephone encounter Note* Telephone Encounter - Marguerite Rubio LPN - 09/01/2024 2:31 PM EST Pt son called with Pt blood sugars from the week. Tu - morning -187 noon- 230 evening - 237 Wed- morning -207 noon - 262 evening - 275 Th - morning -256 noon - 303 evening -278 Please let Pt and son know if you want changes. Marguerite Rubio LPN [facility]12-05-2024 Telephone encounter Note* Telephone Encounter - Rufina Soares APRN.CNP - 08/31/2024 7:28 AM EST Noted, thank you Rufina Soares APRN.CNP [facility]12-05-2024 Miscellaneous Notes* Telephone Encounter - Rufina Soares APRN.CNP - 08/31/2024 7:28 AM EST Noted, thank you Rufina Soares APRN.CNP * Telephone Encounter - Aimee French RN - 08/30/2024 1:36 PM EST RICKY Gardner @ [facility] calling with plan of care. OT will see patient 1 x/weekf for one week, 2 x/week for two weeks, and 1x/week for one week for safety and strength training needed for ADLs. If agree, no call back needed. Aimee French RN documented in this encounterAs[facility]12-04-2024 Telephone encounter Note * Telephone Encounter - Aimee French RN - 08/30/2024 1:36 PM EST RICKY Gardner @ [facility] calling with plan of care. OT will see patient 1 x/weekf for one week, 2 x/week for two weeks, and 1x/week for one week for safety and strength training needed for ADLs. If agree, no call back needed. Aimee French RN [facility]12-03-2024 Telephone encounter Note* Telephone Encounter - Amado James MD - 08/29/2024 2:06 PM EST Noted Amado James MD [facility]12-03-2024 Miscellaneous Notes* Telephone Encounter - Amado James MD - 08/29/2024 2:06 PM EST Noted Amado James MD * Telephone Encounter - Juana Castaneda RN - 08/29/2024 10:57 AM EST Rufina STEVENS calling from [facility] to report plan of care for patient and physical therapy will visit patient 1 time a week for 1 week, 2 times a week for 3 weeks and 1 time a week for 1 week. Physical therapy will work with patient on lower extremity strength, transfer and gait training, and balance and endurance. No call back needed unless there are questions Juana Castaneda RN documented in this encounterAs[facility]12-[facility]-2024 Telephone encounter Note * Telephone Encounter - Juana Castaneda RN - 08/29/2024 10:57 AM EST Rufina PT calling from [facility] to report plan of care for patient and physical therapy will visit patient 1 time a week for 1 week, 2 times a week for 3 weeks and 1 time a week for 1 week. Physical therapy will work with patient on lower extremity strength, transfer and gait training, and balance and endurance. No call back needed unless there are questions Juana Castaneda RN [facility]12-02-2024 History of Present illness Narrative* Rufina Soares APRN.METALLURGIST HELPER - 08/28/2024 2:00 PM EST This is a 74 year old female who presents today with: Patient presents with: Follow Up: Hosptial follow up hupoglycemia HISTORY OF PRESENT ILLNESS: Rosa Myers is a 74 year old female. Patient presents with: Follow Up: Hosptial follow up huglycemia HOSPITAL/ER FOLLOW UP: Reason for visit: Altered level of consciousness transported by EMS Which facility: [facility] Date of visit: 08/19/2024-08/22/2024 Diagnosis: Hypoglycemia, hypothermia, chronic anemia, CHF, CKD stage IV Testing done: Blood sugar on ER arrival was 41. Brain CT showed diffuse involutional changes. A remote lacunar infarct in the left internal capsule and brock radiator. Extensive carotid and vertebral calcifications. No intracranial mass, hemorrhage or acute infarct. Chest x-ray shows vascular congestion without desi interstitial edema. Interstitial prominence/infiltrate at the right lung base no consolidation no effusion. Treatment given: A1c was only 5.2, discontinued Lantus in the hospital. Held aspirin in the hospital due to chronic anemia, hemoglobin 7.9. Discussed discontinuing Jardiance if hypoglycemia symptoms continued. Reduced carvedilol 12.5 mg twice daily and losartan 50 mg daily. Current symptoms: Has been feeling well since hospital discharge. Son present at today's appointment. Fasting sugars 200's the past couple of days. Has been holding Lantus at this time per hospital recommendation. Still taking Humalog 25 units TID with meals, however glucose at lunch and dinner yesterday was in the 70s. Therefore she held her insulin. Still taking Farxiga 10 mg daily. History of diabetic ulcers/wounds Follows with cardiology, [facility], . Living with , son lives in [facility] on same property. PAST MEDICAL HISTORY: PAST MEDICAL HISTORY Diagnosis Date Allergic rhinitis due to other allergen Essential hypertension, benign Type II or unspecified type diabetes mellitus without mention of complication, uncontrolled PAST SURGICAL HISTORY Procedure Laterality Date CATARACT EXTRACTION HX Right 10/26/2017 EGD W/O BRSH SPEC VARICIES INJ N/A 02/24/2022 LIG/TRNSXJ FLP TUBE ABDL/VAG APPR UNI/BI 1987 Tubal ligation LIGJ DIVJ &/EXCJ VARICOSE VEIN CLUSTER 1 LEG 1995 Varicose Vein Surgery TONSILLECTOMY PRIMARY/SECONDARY <AGE 10 Tonsillectomy ALLERGIES Diana Inhibitors and Neomycin MEDICATIONS Current Outpatient Medications Medication Sig insulin glargine (LANTUS SOLOSTAR U-100 INSULIN) 100 unit/mL (3 mL) Inject 60 Units subcutaneously once daily. atorvastatin (LIPITOR) 40 mg tablet Take 1 tablet by mouth daily at bedtime. For cholesterol. metOLazone (ZAROXOLYN) 5 mg tablet Take 1 tablet by mouth once daily. insulin lispro (HUMALOG KWIKPEN INSULIN) 100 unit/mL INJECT 25 UNITS SUBCUTANEOUSLY THREE TIMES DAILY WITH MEALS DIRECTED dapagliflozin propanediol (FARXIGA) 10 mg tablet Take 1 tablet by mouth daily with breakfast. clotrimazole-betamethasone (LOTRISONE) cream Apply to affected area two times a day. furosemide (LASIX) 40 mg tablet Take 2 tablets by mouth once daily. FLUoxetine (PROZAC) 10 mg capsule Take 1 capsule by mouth once daily. carvedilol (COREG) 12.5 mg tablet Take 1 tablet by mouth two times a day. valsartan (DIOVAN) 160 mg tablet Take 1 tablet by mouth once daily. blood sugar diagnostic (BLOOD GLUCOSE TEST) test strip Alvina test strips. Test blood sugars once daily as directed. Dx: E11.9. Insulin: Yes Insulin Syringe-Needle U-100 1 mL 29 gauge x 1/2" 1 Each once daily. USE ONE SYRINGE FOR EACH INSULIN DOSE/ 1 PER DAY insulin needles, DISPOSABLE, (PEN NEEDLE) 31 gauge x 5/16" Use 4 times daily to inject insulin [...] 1 capsule by mouth once daily. Insulin [place], Disposable, (RELION PEN NEEDLES) 32 x 5/32 " ndle Use as directed with insulin pen. 250.00. 4 injections/day. On insulin. Blood-Glucose Meter, Drum-type (ACCU-CHEK COMPACT PLUS CARE) kit Use as directed cyanocobalamin (VITAMIN B-12) 1,000 mcg tab Take 1 tablet by mouth once daily. Aspirin 81 mg Tab Take 81 mg by mouth. No current facility-administered medications for this visit. FAMILY HISTORY Problem Relation Age of Onset Diabetes Father Coronary Artery Disease Father Coronary Artery Disease Mother CABG age 80 Cataract Sister Blindness Sister Blindness Other Social History Tobacco Use Smoking status: Former Smokeless tobacco: Never Tobacco comments: Quit 1980s Vaping Use Vaping status: Never Used Substance Use Topics Alcohol use: No Drug use: No REVIEW OF SYSTEMS GENERAL: No weight loss, malaise or fevers/chills HEENT: Negative for frequent or significant headaches, No changes in hearing or vision. NECK: Negative for lumps, goiter, pain and significant neck swelling RESPIRATORY: Negative for cough, hemoptysis, wheezing, dyspnea or shortness of breath CARDIOVASCULAR: Negative for chest pain, leg swelling, orthopnea, or palpitations GI: No nausea, vomiting, or diarrhea/constipation. No hematochezia/melena. No heartburn or reflux symptoms. : No history of dysuria, frequency or incontinence MUSCULOSKELETAL: Negative for joint pain or swelling. SKIN: Negative for lesions, rash, and itching ENDOCRINE: Negative for cold or heat intolerance, polyuria, polydipsia and goiter NEURO: No history of headaches, syncope, paralysis, seizures or tremors MOOD: Negative for depression, anxiety, or suicidal ideation. EXAM: BP 128/60 Pulse 70 Resp 16 Wt 113 kg (249 lb 1.9 oz) SpO2 96% PHYSICAL EXAM: General Appearance: Well appearing, alert, in no acute distress, well-hydrated, well nourished. Skin: Skin color, texture, turgor normal, no suspicious rashes or lesions. Head: Normocephalic, no masses, lesions, tenderness or abnormalities. Eyes: Anicteric sclera. Extraocular movements are intact. . Lungs: Lungs clear to auscultation. No wheezing, rhonchi, rales. Heart: RRR without murmur, gallop, or rubs. No ectopy. Extremities: No deformities, edema, skin discoloration, clubbing or cyanosis. Good capillary refill. Peripheral Pulses: Normal, Capillary refill <2secs, strong peripheral pulses, Pulses palpable. Neurologic: Gait normal. Sensation grossly intact. ASSESSMENT/PLAN: 1. Hospital discharge follow-up - ICD9: V67.59, ICD10: Z09 (primary diagnosis) - Doing well since hospital discharge. 2. Type 2 diabetes mellitus with hypoglycaemia without coma (HCC) - ICD9: 250.80, ICD10: E11.649 - Control undetermined, due for labs, instructed to get fasting labs completed. - Recommend using Sliding scale due to continued low sugars at meal times. Continue to hold Levemirat this time. - Instructed to monitor fasting and mealtime sugars, call the office in the next couple of days with readings. - Continue current medications - Counseled on healthy diet and regular exercise - BLOOD SUGAR DIAGNOSTIC STRIPS 3. CKD (chronic kidney disease) stage 4, GFR 15-29 ml/min (HCC) - ICD9: 585.4, ICD10: N18.4 - eGFR: 32 Due for labs - Counseled on avoiding NSAIDs, adequate hydration - Counseled on low sodium diet - Discussed having a consult with nephrology in the future pending lab results. 4. Chronic anemia - ICD9: 285.9, ICD10: D64.9 - Stable, continue to monitor. 5. Chronic heart failure with preserved ejection fraction (HCC) - ICD9: 428.9, ICD10: I50.32 - Stable, continue to take current medication. - Keep scheduled appointments with Cardiology. Follow-up in 3 months or sooner pending test results. Discussed treatment plan and patient voices understanding. Patient's questions answered appropriately. Medications and potential side effects were discussed and patient voices understanding. Rufina Soares APRN.CNP This note was partially generated using [email or web address] voice recognition system. Note was reviewed for accuracy. There may be minor misspellings or grammar miscues with XDCon voice recognition. documented in this encounterAs[facility]12-[facility]24 NoteHNO ID: [id number] Author: RUFINA SOARES APRN.CNP Service: ? Author Type: Nurse Practitioner Type: Progress Notes Filed: 08/28/2024 16:06 Note Text: This is a 74 year old female who presents today with: Patient presents with: Follow Up: Hosptial follow up hupoglycemia HISTORY OF PRESENT ILLNESS: Rosa Myers is a 74 year old female. Patient presents with: Follow Up: Hosptial follow up hupoglycemia HOSPITAL/ER FOLLOW UP: Reason for visit: Altered level of consciousness transported by EMS Which facility: [facility] Date of visit: 08/19/2024-08/22/2024 Diagnosis: Hypoglycemia, hypothermia, chronic anemia, CHF, CKD stage IV Testing done: Blood sugar on ER arrival was 41. Brain CT showed diffuse involutional changes. A remote lacunar infarct in the left internal capsule and brock radiator. Extensive carotid and vertebral calcifications. No intracranial mass, hemorrhage or acute infarct. Chest x-ray shows vascular congestion without desi interstitial edema. Interstitial prominence/infiltrate at the right lung base no consolidation no effusion. Treatment given: A1c was only 5.2, discontinued Lantus in the hospital. Held aspirin in the hospital due to chronic anemia, hemoglobin 7.9. Discussed discontinuing Jardiance if hypoglycemia symptoms continued. Reduced carvedilol 12.5 mg twice daily and losartan 50 mg daily. Current symptoms: Has been feeling well since hospital discharge. Son present at today's appointment. Fasting sugars 200's the past couple of days. Has been holding Lantus at this time per hospital recommendation. Still taking Humalog 25 units TID with meals, however glucose at lunch and dinner yesterday was in the 70s. Therefore she held her insulin. Still taking Farxiga 10 mg daily. History of diabetic ulcers/wounds Follows with cardiology, [facility], . Living with , son lives in [facility] [place] on same property. PAST MEDICAL HISTORY: PAST MEDICAL HISTORY Diagnosis Date Allergic rhinitis due to other allergen Essential hypertension, benign Type II or unspecified type diabetes mellitus without mention of complication, uncontrolled PAST SURGICAL HISTORY Procedure Laterality Date CATARACT EXTRACTION HX Right 10/26/2017 EGD W/O BRSH SPEC VARICIES INJ N/A 02/24/2022 LIG/TRNSXJ FLP TUBE ABDL/VAG APPR UNI/BI 1987 Tubal ligation LIGJ DIVJ AND/EXCJ VARICOSE VEIN CLUSTER 1 LEG 1995 Varicose Vein Surgery TONSILLECTOMY PRIMARY/SECONDARY Tonsillectomy ALLERGIES Diana Inhibitors and Neomycin MEDICATIONS Current Outpatient Medications Medication Sig insulin glargine (LANTUS SOLOSTAR U-100 INSULIN) 100 unit/mL (3 mL) Inject 60 Units subcutaneously once daily. atorvastatin (LIPITOR) 40 mg tablet Take 1 tablet by mouth daily at bedtime. For cholesterol. metOLazone (ZAROXOLYN) 5 mg tablet Take 1 tablet by mouth once daily. insulin lispro (HUMALOG KWIKPEN INSULIN) 100 unit/mL INJECT 25 UNITS SUBCUTANEOUSLY THREE TIMES DAILY WITH MEALS DIRECTED dapagliflozin propanediol (FARXIGA) 10 mg tablet Take 1 tablet by mouth daily with breakfast. clotrimazole-betamethasone (LOTRISONE) cream Apply to affected area two times a day. furosemide (LASIX) 40 mg tablet Take 2 tablets by mouth once daily. FLUoxetine (PROZAC) 10 mg capsule Take 1 capsule by mouth once daily. carvedilol (COREG) 12.5 mg tablet Take 1 tablet by mouth two times a day. valsartan (DIOVAN) 160 mg tablet Take 1 tablet by mouth once daily. blood sugar diagnostic (BLOOD GLUCOSE TEST) test strip Alvina test strips. Test blood sugars once daily as directed. Dx: E11.9. Insulin: Yes Insulin Syringe-Needle U-100 1 mL 29 gauge x 1/2" 1 Each once daily. USE ONE SYRINGE FOR EACH INSULIN DOSE/ 1 PER DAY insulin needles, DISPOSABLE, (PEN NEEDLE) 31 gauge x 5/16" Use 4 times daily to inject insulin [...] 1 capsule by mouth once daily. Insulin Center [place], Disposable, (RELION PEN NEEDLES) 32 x 5/32 " ndle Use as directed with insulin pen. 250.00. 4 injections/day. On insulin. Blood-Glucose Meter, Drum-type (ACCU-CHEK COMPACT PLUS CARE) kit Use as directed cyanocobalamin (VITAMIN B-12) 1,000 mcg tab Take 1 tablet by mouth once daily. Aspirin 81 mg Tab Take 81 mg by mouth. No current facility-administered medications for this visit. FAMILY HISTORY Problem Relation Age of Onset Diabetes Father Coronary Artery Disease Father Coronary Artery Disease Mother CABG age 80 Cataract Sister Blindness Sister Blindness Other Social History Tobacco Use Smoking status: Former Smoke (more content not included)...[facility]12-02-2024 Instructions* Patient Instructions* Rufina Soares APRN.METALLURGIST HELPER - 08/28/2024 1:54 PM EST Get fasting labs completed, no food 10 hours prior. May have black coffee and water Recommend monitoring sugars at home, fasting in the morning, lunch and dinner. Write these readingsdown and call the office in 3 days. Recommend doing a sliding scale insulin Humalog vs the 25 units with meals for the time being. Continue to eat a low carb diet, increase lean protein, veggies, Watch salt and processed foods in the diet. Stay well hydrated Recommend a probiotic or increase yogurt in diet to help with diarrhea. Follow up in 3 months or sooner pending lab results. Sliding scale. If Blood Glucose (mg/dL) is Less than 100 0 units 101-150 0 units 151-175 2 units 176-200 3 units 201-225 4 units 226-250 5 units 251-275 6 units 276-300 7 units 301-325 8 units 326-350 9 units >350 10 units and Notify Provider documented in this encounterAs[facility]11-29-[facility]24 Telephone encounter Note * Telephone Encounter - Mariza Graham MA - 08/25/2024 2:40 PM EST Detailed message of below left on Joseph's identified and confidential VM. Advised to call office ifany questions. Mariza Graham MA [facility]11-29-2024 Miscellaneous Notes* Telephone Encounter - Mariza Graham MA - 08/25/2024 2:40 PM EST Detailed message of below left on Joseph's identified and confidential VM. Advised to call office ifany questions. Mariza Graham MA * Telephone Encounter - Amado James MD - 08/25/2024 2:01 PM EST Noted; yes, I will follow Amado James MD * Telephone Encounter - Vicki Sawant LPN - 08/25/2024 1:03 PM EST Bailey WONG calling Pt. discharged with DX hypoglycemia. POC is see her 2 x 1 week an 1 day for 2 weeks and reassess. will you follow? documented in this encounterAshtabula [facility]11-29-2024 Telephone encounter Note * Telephone Encounter - Amado James MD - 08/25/2024 2:01 PM EST Noted; yes, I will follow Amado James MD [facility]11-29-[facility] Telephone encounter Note* Telephone Encounter - Vicki Sawant LPN - 08/25/2024 1:03 PM EST Bailey WONG calling Pt. discharged with DX hypoglycemia. POC is see her 2 x 1 week an 1 day for 2 weeks and reassess. will you follow? [facility] Work Phone: 1(205) 228-224611-29-2024 NoteHNO ID: [id number] Author: MARIZA GRAHAM MA Service: ? Author Type: Digital Strategist Type: Progress Notes Filed: 08/25/2024 10:20 Note Text: TRANSITION CARE MANAGEMENT (TCM) INITIAL CONTACT Digital Strategist Outreach Provider Action/FYI: 7 day TCM Pt discharged home on Lasix 40 mg daily, Losartan 50 mg daily, Coreg 12.5 mg BID and Levemir 80 units daily. D/c with Home Health Services Initial contact with patient post discharge, spoke to spouse. Patient identified by name and . TRANSITION CARE MANAGEMENT INITIAL OUTREACH DOCUMENTATION: 08/25/2024 Date of Outreach: Outreach Attempt 1: Contact Made Date of Discharge 08/22/2024 SUMMARY: -Pt discharged from [facility] on 08/22/24. -Admitted for: 1) hypoglycemia with diabetes 2) Hypothermia 3) Hx of diabetes mellitus 4) Acute Metabolic encephalopathy due to hypoglycemia Do you have a hospital follow up appointment with your PCP? Appointment on 08/28/24 with Rufina Soares. Yes. Remind patient of appointment date, time, and location. If not within 14 calendar days of discharge - please reschedule accordingly. MEDICATIONS: Many patients have questions or concerns about their medications once they are home. Were you prescribed any new medications? If yes, what are those medications? Lasix 40 mg daily, Coreg 12.5 mg BID, Losartan 50 mg daily Were you told to hold any medications? No Were any of your medications discontinued? If yes, what are those medications? Lasix 80 mg daily, Levemir insulin 50 units daily, losartan 100 mg daily. Do you have any questions about getting or taking your medications? No Your discharge instructions/After visit Summary (AVS) are important in guiding you through the recovery process. Is there anything I might help you understand? No Do you have all the necessary equipment and supplies at home? Yes Medical records from recent hospitalization: [facility] History of Present illness Narrative* Mariza Graham MA - 08/25/2024 10:09 AM EST TRANSITION CARE MANAGEMENT (TCM) INITIAL CONTACT Digital Strategist Outreach Provider Action/FYI: 7 day TCM Pt discharged home on Lasix 40 mg daily, Losartan 50 mg daily, Coreg 12.5 mg BID and Levemir 80 units daily. D/c with Home Health Services Initial contact with patient post discharge, spoke to spouse. Patient identified by name and . TRANSITION CARE MANAGEMENT INITIAL OUTREACH DOCUMENTATION: 08/25/2024 Date of Outreach: Outreach Attempt 1: Contact Made Date of Discharge 08/22/2024 SUMMARY: -Pt discharged from [facility] on 08/22/24. -Admitted for: 1) hypoglycemia with diabetes 2) Hypothermia 3) Hx of diabetes mellitus 4) Acute Metabolic encephalopathy due to hypoglycemia Do you have a hospital follow up appointment with your PCP? Appointment on 08/28/24 with Rufina Soares. Yes. Remind patient of appointment date, time, and location. If not within 14 calendar days of discharge - please reschedule accordingly. MEDICATIONS: Many patients have questions or concerns about their medications once they are home. Were you prescribed any new medications? If yes, what are those medications? Lasix 40 mg daily, Coreg 12.5 mg BID, Losartan 50 mg daily Were you told to hold any medications? No Were any of your medications discontinued? If yes, what are those medications? Lasix 80 mg daily, Levemir insulin 50 units daily, losartan 100mg daily. Do you have any questions about getting or taking your medications? No Your discharge instructions/After visit Summary (AVS) are important in guiding you through the recovery process. Is there anything I might help you understand? No Do you have all the necessary equipment and supplies at home? Yes Medical records from recent hospitalization: Placed for provider to review documented in this encounterAshtabula [facility]11-29-2024 NotePatient Outreach (FAMPWS) ROSA MYERS ([id number]) 1950 F Date Time Provider Department 08/25/24 MARIZA GRAHAM During your visit today, we recorded the following information about you: Mariza Graham MA 08/25/2024 10:20 AM Signed TRANSITION CARE MANAGEMENT (TCM) INITIAL CONTACT Digital Strategist Outreach Provider Action/FYI: 7 day TCM Pt discharged home on Lasix 40 mg daily, Losartan 50 mg daily, Coreg 12.5 mg BID and Levemir 80 units daily. D/c with Home Health Services Initial contact with patient post discharge, spoke to spouse. Patient identified by name and . TRANSITION CARE MANAGEMENT INITIAL OUTREACH DOCUMENTATION: 08/25/2024 Date of Outreach: Outreach Attempt 1: Contact Made Date of Discharge 08/22/2024 SUMMARY: -Pt discharged from [facility] on 08/22/24. -Admitted for: 1) hypoglycemia with diabetes 2) Hypothermia 3) Hx of diabetes mellitus 4) Acute Metabolic encephalopathy due to hypoglycemia Do you have a hospital follow up appointment with your PCP? Appointment on 08/28/24 with Rufina Soares. Yes. Remind patient of appointment date, time, and location. If not within 14 calendar days of discharge - please reschedule accordingly. MEDICATIONS: Many patients have questions or concerns about their medications once they are home. Were you prescribed any new medications? If yes, what are those medications? Lasix 40 mg daily, Coreg 12.5 mg BID, Losartan 50 mg daily Were you told to hold any medications? No Were any of your medications discontinued? If yes, what are those medications? Lasix 80 mg daily, Levemir insulin 50 units daily, losartan 100 mg daily. Do you have any questions about getting or taking your medications? No Your discharge instructions/After visit Summary (AVS) are important in guiding you through the recovery process. Is there anything I might help you understand? No Do you have all the necessary equipment and supplies at home? Yes Medical records from recent hospitalization: Placed for provider to review Allergies As of Date: 08/25/2024 Noted Allergy Reaction DIANA INHIBITORS 07/17/2005 NEOMYCIN 07/17/2005 Date Reviewed: 07/11/2024 Reviewed by: Yaz Christy MA - Fully Assessed Reason for Visit: Transition Of Care [4074] Prescriptions as of 08/25/2024 - insulin glargine (LANTUS SOLOSTAR U-100 INSULIN) 100 unit/mL (3 mL) Inject 60 Units subcutaneously once daily. - atorvastatin (LIPITOR) 40 mg tablet Take 1 tablet by mouth daily at bedtime. For cholesterol. - metOLazone (ZAROXOLYN) 5 mg tablet Take 1 tablet by mouth [...] by mouth two times a day. - valsartan (DIOVAN) 160 mg tablet Take 1 tablet by mouth once daily. - blood sugar diagnostic (BLOOD GLUCOSE TEST) test strip Alvina test strips. Test blood sugars once daily as directed. Dx: E11.9. Insulin: Yes - Insulin Syringe-Needle U-100 1 mL 29 gauge x 1/2" 1 Each once daily. USE ONE SYRINGE FOR EACH INSULIN DOSE/ 1 PER DAY - insulin needles, DISPOSABLE, (PEN NEEDLE) 31 gauge x 5/16" Use 4 times daily to inject insulin [...] capsule by mouth once daily. - Insulin Center Point, Disposable, (RELION PEN NEEDLES) 32 x 5/32 " ndle Use as directed with insulin pen. [...] once daily. Problem List As Of Date 08/25/2024 Noted Resolved BENIGN HYPERTENSION [I10] 07/17/2005 Hyperlipidemia [E78.5] 07/17/2005 OSTEOARTHROS NOS-UNSPEC [M19.90] 07/17/2005 Allergic rhinitis [J30.9] 07/17/2005 DIFFUS CYSTIC MASTOPATHY [N60.19] 07/17/2005 Type 2 diabetes mellitus with diabetic chronic *04/15/2023 Personal history of transient ischemic attack (*11/15/2013 Morbid o (more content not included)...[facility]11-26-20[facility] Telephone encounter Note* Telephone Encounter - Chuyita Fontana LPN - 08/22/2024 2:28 PM EST Left detailed message on identifiable voicemail. [facility]11-26-2024 Miscellaneous Notes* Telephone Encounter - Chuyita Fontana LPN - 08/22/2024 2:28 PM EST Left detailed message on identifiable voicemail. * Telephone Encounter - Maciel Busby APRN.CNP - 08/22/2024 2:25 PM EST Please let Vinay know that Dr. James is out of the office. His team will follow home health care orders as recommended. Okay to proceed. Maciel Busby APRN.CNP * Telephone Encounter - Hyacinth Greer LPN - 08/22/2024 9:36 AM EST Vinay with [facility] is calling to report that pt is currently in [facility] for hypoglycemia. Pt may get discharged today or tomorrow and possibly with 2L of O2. Pt has orders for long-term, PT, OT, and SW. Vinay is asking for VO from provider that provider will follow pt while in . Hyacinth Greer LPN documented in this encounterAshtabula [facility] Hospital11-26-2024 Telephone encounter Note * Telephone Encounter - Maciel Busby APRN.RENEE - 08/22/2024 2:25 PM EST Please let Vinay know that Dr. James is out of the office. His team will follow home health care orders as recommended. Okay to proceed. Maciel Busby APRN.METALLURGIST HELPER [facility]11-26-2024 Telephone encounter Note* Telephone Encounter - Hyacinth Greer LPN - 08/22/2024 9:36 AM EST Vinay with [facility] is calling to report that pt is currently in [facility] for hypoglycemia. Pt may get discharged today or tomorrow and possibly with 2L of O2. Pt has orders for long-term, PT, OT, and SW. Vinay is asking for VO from provider that provider will follow pt while in . Hyacinth Greer LPN [facility]11-22-2024 Telephone encounter Note* Telephone Encounter - Diana Whittington LPN - 08/18/2024 4:42 PM EST Phoned [facility] order line and left detailed message with notes below from Dr James on voicemail. [facility]11-22-2024 Miscellaneous Notes* Telephone Encounter - Diana Whittignton LPN - 08/18/2024 4:42 PM EST Phoned [employer] [facility] order line and left detailed message with notes below from Dr James on voicemail. * Telephone Encounter - Amado James MD - 08/18/2024 4:39 PM EST I will follow and sign orders as requested Amado James MD * Telephone Encounter - Diana Whittington LPN - 08/18/2024 3:30 PM EST Will from [employer] calling asking if PCP would follow patient and sign orders for PT/OT? Patient was in [facility]. Please advise documented in this encounterAshtabula [facility] Hospital11-22-2024 Telephone encounter Note * Telephone Encounter - Amado James MD - 08/18/2024 4:39 PM EST I will follow and sign orders as requested Amado James MD [facility]11-22-2024 Telephone encounter Note* Telephone Encounter - Diana Whittington LPN - 08/18/2024 3:30 PM EST Will from [employer] calling asking if PCP would follow patient and sign orders for PT/OT? Patient was in [facility]. Please advise [facility]10-17-2024 Telephone encounter Note* Telephone Encounter - Amado James MD - 07/13/2024 4:09 PM EDT Ok for Lantus as ordered Amado James MD [facility]10-17-2024 Miscellaneous Notes* Telephone Encounter - Amado James MD - 07/13/2024 4:09 PM EDT Ok for Lantus as ordered Amado James MD * Telephone Encounter - Laura Palomares LPN - 07/13/2024 3:50 PM EDT Dolly pharmacist from [facility] calling [facility] received script for Levemir for pt this is being discontinued . There are no alternatives coming up but she states most likely Lantus. . New script needssent to [facility] for pt. documented in this encounterAshtabula General Hospital10-17-2024 Telephone encounter Note * Telephone Encounter - Laura Palomares LPN - 07/13/2024 3:50 PM EDT Dolly pharmacist from [facility] received script for Levemir for pt this is being discontinued . There are no alternatives coming up but she states most likely Lantus. . New script needssent to [facility] for pt. [facility]10-16-[facility] Telephone encounter Note* Telephone Encounter - Iain Lees RN - 07/12/2024 10:01 AM EDT Patient reports [facility] tells her her levemir Rx was cancelled. Reports she saw pcp yesterday and he did not mention it to her. Appears in chart, levemir was not cancelled, it is listed as historical med. Patient asking provider to send new Rx to pharmacy. Pended. Last ov: 07-11-24 [facility] Miscellaneous Notes* Telephone Encounter - Iain Lees RN - 07/12/2024 10:01 AM EDT Patient reports [facility] tells her her levemir Rx was cancelled. Reports she saw pcp yesterday and he did not mention it to her. Appears in chart, levemir was not cancelled, it is listed as historical med. Patient asking provider to send new Rx to pharmacy. Pended. Last ov: 07-11-24 documented in this encounterAshtabula General Hospital10-15-2024 Instructions* Patient Instructions* Yaz Christy MA - 07/11/2024 4:30 PM EDT Will not reduce Humalog at present time, if still having low blood sugars update office. Discussed decreasing Humalog to 20 units three x per day. documented in this encounterAshtabula General Hospital10-15-2024 History of Present illness Narrative* Amado James MD - 07/11/2024 4:00 PM EDT Images from the original note were not included. Rosa Myers is a 74 year old female here for a Medicare wellness visit. Mini-Cog test completed at visit in March. Medicare Health Risk Assessment General Health Fair Exercise: Minutes/Day 0 min Exercise: Days/Week 0 days Alcohol: Daily Use Never Alcohol: Drinks/Day Patient does not drink Alcohol: 6 or more drinks Never Feel off balance No (using a cane but doesn't feel off balance) Concerns: Teeth/Dentures Yes (Has two that are broken (2 years), but will not do anything with them.) Concerns: Sexual function No Troubled by feelings None of the above Frequency: Eating healthy diet More than half the days ADLs requiring help Grocery shopping; Cooking; Walking; Handling finances; Driving Safety precautions in home/vehicle No (Admits to not wearing seatbelt) Smoke, vape, chews tobacco No Difficulty hearing No Difficulty seeing Yes Current Providers Specialists: I have reviewed specialist-related care of the patient in the medical record. Current care team: Patient Care Team: Amado James MD as PCP - General Dr. Stallings or FULL STACK DEVELOPER Provider - [facility]/Cardiology. Dr. Erwin - Podiatry/Wound Center. Dr. Peters - Eye Doctor - has not seen in quite some time. Medical/Family history review Reviewed and updated problem list, medical/surgical/family/social history, medications, and allergies. Opioid use review Opioid Medications (last 90 days) No data to display Anxiety/Depression screening Recommendation: no further intervention at this time and continuing current treatment plan Cognitive screening Mini Cog Score: 5 Cognitive screening reviewed and No further action needed (score 3-5). Functional Observation Was the patient's Timed Up & Go test unsteady or >= 12 seconds? No, but very slow to ambulate. Advance Care Planning Patient did not wish or was not able to name a surrogate decision maker or provide an advance care plan Physical Exam Constitutional: Appearance: She is obese. Cardiovascular: Rate and Rhythm: Normal rate and regular rhythm. Pulses: Normal pulses. Heart sounds: Normal heart sounds. No murmur heard. Pulmonary: Effort: Pulmonary effort is normal. No respiratory distress. Breath sounds: Normal breath sounds. No wheezing, rhonchi or rales. Comments: Gets short of breath easily. Musculoskeletal: General: Tenderness present. Right lower leg: Edema present. Left lower leg: Edema present. Comments: Right knee examined Skin: Comments: Scab noted on tip of pt's nose Neurological: General: No focal deficit present. Mental Status: She is alert. Measurements BP 138/82 (BP Site: Left Arm, BP Position: Sitting, BP Cuff Size: Regular Adult) Pulse 76 Resp 20 Wt 124.2 kg (273 lb 13 oz) SpO2 99% Vision Screening: Declines visual acuity screen unable to complete due to not being able to stand long distance. Assessment/Plan Medicare annual wellness visit, subsequent (Z00.00) - Counseled on healthy diet and regular exercise - Fall avoidance information provided - Personalized prevention plan provided - Discussed need for and benefit of weight loss. BMI 44.87 kg/(m^2) Amado James MD Chief Complaint Follow up HPI Rosa Myers is a 74 year old female who presents here today for follow up, in addition to Medicare Wellness. GI/Uro - Denies any stomach or bowel issues. Does urinate frequently, every 2-4 hours day/night. HTN - Denies checking BP at home. No chest pain or dizziness. Does get sob with exertion. Does follow with Cardiology at [facility], has appt tomorrow. On current regimen of Diovan 160 mg once daily and Coreg 12.5 mg bid. Lipid/CAD - Taking Plavix 75 mg once daily, Lipitor 40 mg once daily and ASA 81 mg daily. Follows with [facility]. DM - Checks sugars at home once daily with FBS of 90 this morning. Generally FBS is 130-160. Has been having increased episodes of lows (5) over the past month, seems to correlate with increased use of abx due to her wounds. Is following with Dr. Erwin at [facility] and [facility] for wound on b/l feet. Was seen last , wearing compression wraps to hold wound dressings in place. Pt states they are thinking about doing Hyperbaric Treatment. Currently being treated with Doxycyline 100 mg bid for 3 weeks, has two more days of this. Completed Cipro 500 mg once daily for two weeks. On current regimen of Humalog 25 units TID with meals, Levemir 60-65 units and Farxiga 10 mg once daily. Edema - B/L lower leg edema. At last visit didn't feel the current dosage of Lasix 40 mg was helping, so this was increased to 80 mg daily. Also treated in the last 3 months for cellulitis. Still feels she's retaining fluid, is wearing compression wrap from Wound Care last week. Pt does report urinating a lot. Knee - Right knee pain since x 5 days. Unsure what she did but she she's having increased knee pain. No injury she's aware of. Has had issues with this in the past, it improved. Has taken Aspirin to help with pain. Depression - Was started on low dosage of Prozac 10 mg once daily at last visit. Son had some concern about pt being depressed. Pt reported feeling fine, just has no excitement about things or desireto do anything. Denies noticing any improvement with use of medication. Son feels she just gets tired of going to the Doctors. Derm - Spot on face, previously picked area on forehead. Now spot on the tip of her nose that is scabbed over. HM - Declines Flu, Covid, RSV, Shingles and Pneumonia vaccines. Denies having eye exam done in the past year. Had Foot exam done through [facility], Wound Center. Denies having Adv Dir/Living Will, pt reports son has say. Past medical history, appointments, medications, allergies reviewed. Previous Medical History PAST MEDICAL HISTORY Diagnosis Date Allergic rhinitis due to other allergen Essential hypertension, benign Type II or unspecified type diabetes mellitus without mention of complication, uncontrolled Previous Surgical History PAST SURGICAL HISTORY Procedure Laterality Date CATARACT EXTRACTION HX Right 10/26/2017 EGD W/O [facility] SPEC VARICIES INJ N/A [...] SUBCUTANEOUSLY THREE TIMES DAILY WITH MEALS DIRECTED dapagliflozin propanediol (FARXIGA) 10 mg tablet Take [...] two times a day. insulin detemir U-100 (LEVEMIR U-100 INSULIN) 100 unit/mL injection Inject 70 Units subcutaneously every morning. valsartan (DIOVAN) 160 mg tablet Take 1 tablet by mouth once daily. blood sugar diagnostic (BLOOD GLUCOSE TEST) test strip Alvina test strips. Test blood sugars once daily as directed. Dx: E11.9. Insulin: Yes Insulin Syringe-Needle U-100 1 mL 29 gauge x 1/2" 1 Each once daily. USE ONE SYRINGE FOR EACH INSULIN DOSE/ 1 PER DAY insulin needles, DISPOSABLE, (PEN NEEDLE) 31 gauge x 5/16" Use 4 times daily to inject insulin [...] 1 capsule by mouth once daily. Insulin [place], Disposable, (RELION PEN NEEDLES) 32 x 5/32 " ndle Use as directed with insulin pen. 250.00. 4 injections/day. On insulin. Blood-Glucose Meter, Drum-type (ACCU-CHEK COMPACT PLUS CARE) kit Use as directed cyanocobalamin (VITAMIN B-12) 1,000 mcg tab Take 1 tablet by mouth once daily. insulin detemir U-100 (LEVEMIR) 100 unit/mL (3 mL) injection pen Inject 70 Units subcutaneously daily with breakfast. Pt states taking 65 units Aspirin 81 mg Tab Take 81 mg by mouth. No current facility-administered medications on file prior to visit. Social History Social History Tobacco Use Smoking status: Former Smokeless tobacco: Never Tobacco comments: Quit 1980s Vaping Use Vaping status: Never Used Substance Use Topics Alcohol use: No Drug use: No EXAM: BP 136/80 Pulse 76 Resp 20 Wt 124.2 kg (273 lb 13 oz) SpO2 99% General Appearance: Well appearing, alert, in no acute distress, well-hydrated, well nourished. andMorbidly obese. Lungs: decreased breath sounds. Heart: RRR without murmur, gallop, or rubs. No ectopy. Extremities: taurus edema, legs wrapped. Health Maintenance List BP Controlled (<130/80) Never done DTaP,Tdap,Td Vaccine(1 - Tdap) Never done Dilated Retinal Exam due on 03/11/2019 Advance Directive Discussion due on 09/27/2023 Urine Albumin:Creatinine Ratio due on 01/02/2024 Influenza Vaccine(1) due on 03/26/2025 RSV Vaccine(1 - 1-dose 75+ series) due on 07/11/2025 Shingrix Vaccine(1 of 2) due on 07/11/2025 Covid-19 Vaccine( - season) due on 07/11/2025 Pneumococcal Vaccine: 65+(3 of 3 - PPSV23 or PCV20) due on 07/11/2025 HbA1C due on 10/16/2024 Depression Screening due on 04/10/2025 Anxiety Screening due on 04/10/2025 LDL Cholesterol due on 04/15/2025 Serum Creatinine due on 04/15/2025 Hemoglobin/Hematocrit due on 04/15/2025 Diabetic Foot Exam due on 07/06/2025 Annual PCP Team Chronic Disease Visit due on 07/11/2025 Hepatitis C Screening Completed Bone Density Screening Addressed Mammogram Screening Discontinued Colorectal Cancer Screening Discontinued Data reviewed ASSESSMENT/PLAN: 1. Type 2 diabetes mellitus with chronic kidney disease, with long-term current use of insulin, unspecified CKD stage (HCC) - ICD9: 250.40, 585.9, V58.67, ICD10: E11.22, Z79.4 - Controlled - Continue current medications - Discussed reducing Humalog to 20 units TID due to lows, will hold off on per pt request. 2. Essential hypertension, benign - ICD9: 401.1, ICD10: I10 - Controlled - Continue current medications - Recommend home blood pressure monitoring, to bring results to next visit - Encouraged sodium restriction, DASH or Mediterranean diet - Recommend regular aerobic exercise 3. Hyperlipidemia, unspecified hyperlipidemia type - ICD9: 272.4, ICD10: E78.5 - Stable, check labs in 6 weeks - Continue current medications - Counseled on healthy diet and regular exercise - ATORVASTATIN 40 MG TABLET 4. Chronic kidney disease, stage 4 (severe) (HCC) - ICD9: 585.4, ICD10: N18.4 - cont to monitor 5. Heart failure, unspecified HF chronicity, unspecified heart failure type (HCC) - ICD9: 428.9, ICD10: I50.9 Add Zaroxalyn 6. Bilateral leg edema - ICD9: 782.3, ICD10: R60.0 - Add Zaroxolyn to regimen 7. Diabetic ulcer of right midfoot associated with type 2 diabetes mellitus, unspecified ulcer stage (HCC) - ICD9: 250.80, 707.14, ICD10: E11.621, L97.419 Follow with Wound 8. Other depression - ICD9: 311, ICD10: F32.89 Continue prozac 10 mg daily ; she does not want to increase dose 9. Anemia, unspecified type - ICD9: 285.9, ICD10: D64.9 - Check CBC 10. Morbid obesity with body mass index of 40.0-44.9 in adult (HCC) - ICD9: 278.01, V85.41, ICD10: E66.01, Z68.41 Stable - Behavioral intervention 6 week follow up with labs. I agree with the Chief Complaint, ROS, and Past Histories independently gathered by the clinical cryptologic support specialist and the remaining scribed note accurately describes my personal service to the patient. Medical Decision Making: Problems: Moderate: 2+ stable chronic illnesses and 1+ chronic illnesses with change Data: Unique test(s) ordered: 3+ Risk: Moderate: Drug management Medical Decision Making Level: 4 - Moderate Amado James MD The documentation for this note was completed by Yaz Christy MA acting as scribe for Amado James MD. July 11, 2024 4:40 PM. Yaz Christy MA documented in this encounterAshtabula [facility]10-15-[facility]24 NoteHNO ID: [id number] Author: AMADO JAMES MD Service: ? Author Type: Physician Type: Progress Notes Filed: 07/11/2024 17:18 Note Text: Rosa Myers is a 74 year old female here for a Medicare wellness visit. Mini-Cog test completed at visit in March. Medicare Health Risk Assessment General Health Fair Exercise: Minutes/Day 0 min Exercise: Days/Week 0 days Alcohol: Daily Use Never Alcohol: Drinks/Day Patient does not drink Alcohol: 6 or more drinks Never Feel off balance No (using a cane but doesn't feel off balance) Concerns: Teeth/Dentures Yes (Has two that are broken (2 years), but will not do anything with them.) Concerns: Sexual function No Troubled by feelings None of the above Frequency: Eating healthy diet More than half the days ADLs requiring help Grocery shopping; Cooking; Walking; Handling finances; Driving Safety precautions in home/vehicle No (Admits to not wearing seatbelt) Smoke, vape, chews tobacco No Difficulty hearing No Difficulty seeing Yes Current Providers Specialists: I have reviewed specialist-related care of the patient in the medical record. Current care team: Patient Care Team: Amado James MD as PCP - General Dr. Stallings or FULL STACK DEVELOPER Provider - [facility]/Cardiology. Dr. Erwin - Podiatry/Wound Center. Dr. Peters - Eye Doctor - has not seen in quite some time. Medical/Family history review Reviewed and updated problem list, medical/surgical/family/social history, medications, and allergies. Opioid use review Opioid Medications (last 90 days) No data to display Anxiety/Depression screening Recommendation: no further intervention at this time and continuing current treatment plan Cognitive screening Mini Cog Score: 5 Cognitive screening reviewed and No further action needed (score 3-5). Functional Observation Was the patient's Timed Up AND Go test unsteady or >= 12 seconds? No, but very slow to ambulate. Advance Care Planning Patient did not wish or was not able to name a surrogate decision maker or provide an advance care plan Physical Exam Constitutional: Appearance: She is obese. Cardiovascular: Rate and Rhythm: Normal rate and regular rhythm. Pulses: Normal pulses. Heart sounds: Normal heart sounds. No murmur heard. Pulmonary: Effort: Pulmonary effort is normal. No respiratory distress. Breath sounds: Normal breath sounds. No wheezing, rhonchi or rales. Comments: Gets short of breath easily. Musculoskeletal: General: Tenderness present. Right lower leg: Edema present. Left lower leg: Edema present. Comments: Right knee examined Skin: Comments: Scab noted on tip of pt's nose Neurological: General: No focal deficit present. Mental Status: She is alert. Measurements BP 138/82 (BP Site: Left Arm, BP Position: Sitting, BP Cuff Size: Regular Adult) Pulse 76 Resp 20 Wt 124.2 kg (273 lb 13 oz) SpO2 99% Vision Screening: Declines visual acuity screen unable to complete due to not being able to stand long distance. Assessment/Plan Medicare annual wellness visit, subsequent (Z00.00) - Counseled on healthy diet and regular exercise - Fall avoidance information provided - Personalized prevention plan provided - Discussed need for and benefit of weight loss. BMI 44.87 kg/(m2) Amado James MD Chief Complaint Follow up HPI Rosa Myers is a 74 year old female who presents here today for follow up, in addition to Medicare Wellness. GI/Uro - Denies any stomach or bowel issues. Does urinate frequently, every 2-4 hours day/night. HTN - Denies checking BP at home. No chest pain or dizziness. Does get sob with exertion. Does follow with Cardiology at [facility], has appt tomorrow. On current regimen of Diovan 160 mg once daily and Coreg 12.5 mg bid. Lipid/CAD - Taking Plavix 75 mg once daily, Lipitor 40 mg once daily and ASA 81 mg daily. Follows with [facility]. DM - Checks sugars at home once daily with FBS of 90 this morning. Generally FBS is 130-160. Has been having increased episodes of lows (5) over the past month, seems to correlate with increased use of abx due to her wounds. Is following with Dr. Erwin at [facility] and [facility] for wound on b/l feet. Was seen last , wearing compression wraps to hold wound dressings in place. Pt states they are thinking about doing Hyperbaric Treatment. Currently being treated with Doxycyline 100 mg bid for 3 weeks, has two more days of this. Completed Cipro 500 mg once daily for two weeks. On current regimen of Humalog 25 units TID with meals, Levemir 60-65 units and Farxiga 10 mg once daily. Edema - B/L lower leg edema. At last visit didn't feel the current dosage of Lasix 40 mg was helping, so this was increased to 80 mg daily. Also treated in the last 3 months for cellulitis. Still feels she's retaining fluid, is wearing compression wrap from Wound Care last (more content not included)...[facility]09-20-2024 Telephone encounter Note* Telephone Encounter - Aston Felder RN - 06/16/2024 11:37 AM EDT Patricia [facility] called in and wanted Pts last OV note faxed over. She states the only diagnosis they have is foot ulcer, and she wanted more diagnoses to put down. Faxed last OV note to fax # [phone]. [facility]09-20-20[facility] Miscellaneous Notes* Telephone Encounter - Aston Felder RN - 06/16/2024 11:37 AM EDT Patricia [facility] called in and wanted Pts last OV note faxed over. She states the only diagnosis they have is foot ulcer, and she wanted more diagnoses to put down. Faxed last OV note to fax # [phone]. documented in this encounterAshtabula General Hospital09-10-2024 Telephone encounter Note * Telephone Encounter - Maciel Busby APRN.CNP - 06/06/2024 11:40 AM EDT The following approved medication requests have been transmitted electronically. Requested Prescriptions Pending Prescriptions Disp Refills insulin lispro (HUMALOG KWIKPEN INSULIN) 100 unit/mL 30 Each 3 Sig: INJECT 25 UNITS SUBCUTANEOUSLY THREE TIMES DAILY WITH MEALS DIRECTED Maciel Bsuby APRN.CNP [facility]09-10-2024 Miscellaneous Notes* Telephone Encounter - Maciel Busby APRN.CNP - 06/06/2024 11:40 AM EDT The following approved medication requests have been transmitted electronically. Requested Prescriptions Pending Prescriptions Disp Refills insulin lispro (HUMALOG KWIKPEN INSULIN) 100 unit/mL 30 Each 3 Sig: INJECT 25 UNITS SUBCUTANEOUSLY THREE TIMES DAILY WITH MEALS DIRECTED Maciel Busby APRN.CNP * Telephone Encounter - Pushpa Klein 06/06/2024 10:33 AM EDT Prescription Refill Information The patient has been [...] THREE TIMES DAILY WITH MEALS DIRECTED [facility] June 06, 2024 10:33 AM documented in this encounterAshtabula General Hospital09-10-2024 Telephone encounter Note * Telephone Encounter - Pushpa Klein - 06/06/2024 10:33 AM EDT Prescription Refill Information The patient has been [...] TIMES DAILY WITH MEALS DIRECTED Pushpa Neff [facility] June 06, 2024 10:33 AM [facility]09-06-20[facility] Telephone encounter Note* Telephone Encounter - Aga Castro RN - 06/02/2024 2:31 PM EDT Joseph with [facility] calling and requesting most recent office visit for patient be faxed to them at [phone] for continuity of care for Home Health Nursing services. Faxed as requested. Aga Castro RN [facility]09-06-2024 Miscellaneous Notes* Telephone Encounter - Aga Castro RN - 06/02/2024 2:31 PM EDT Ojseph with [facility] calling and requesting most recent office visit for patient be faxed to them at [phone] for continuity of care for Home Health Nursing services. Faxed as requested. Aga Castro RN documented in this encounterAshtabula General Hospital08-10-2024 History of Present illness Narrative* Amado James MD - 05/06/2024 8:40 AM EDT Chief Complaint Patient presents with: Wound Evaluation: [...] Syringe-Needle U-100 1 mL 29 gauge x 1/2" 1 Each once daily. USE ONE SYRINGE FOR EACH INSULIN DOSE/ 1 PER DAY insulin needles, DISPOSABLE, (PEN NEEDLE) 31 gauge x 5/16" Use 4 times daily to inject insulin [...] 1 capsule by mouth once daily. Insulin [place], Disposable, (RELION PEN NEEDLES) 32 x 5/32 " ndle Use as directed with insulin pen. [...] Foot Exam due on 04/15/2024 Covid-19 Vaccine( season) due on 04/10/2025 Influenza Vaccine(1) due [...] 2 diabetes mellitus, unspecified ulcer stage (HCC) - ICD9: 250.80, 707.14, ICD10: E11.621, L97.419 (primary diagnosis) - New ulcer, with cellulitis - Start Augmentin, refer to Podiatry; family requests [facility], as is treatedthere. - AMOXICILLIN 875 MG-POTASSIUM CLAVULANATE 125 MG TABLET - CONSULT TO PODIATRY 2. Morbid obesity with body mass index of 40.0-44.9 in adult (HCC) - ICD9: 278.01, V85.41, ICD10: E66.01, Z68.41 Stable - Behavioral intervention Follow up prn; will re-evaluate swelling after infection clears I agree with the Chief Complaint, ROS, and Past Histories independently gathered by the clinical cryptologic support specialist and the remaining scribed note accurately describes my personal service to the patient. Medical Decision Making: Problems: Moderate: New problem with uncertain prognosis Risk: Moderate: Drug management Medical Decision Making Level: 4 - Moderate Amado James MD The documentation for this note was completed by Mariza Graham MA acting as scribe for Amado James MD. May 06, 2024 8:46 AM. Mariza Graham MA\\ documented in this encounterAshtabula General Hospital08-10-2024 NoteHNO ID: [id number] Author: AMADO JAMES MD Service: ? Author Type: Physician Type: Progress Notes Filed: 05/06/2024 11:42 Note Text: Chief Complaint Patient presents with: Wound Evaluation: Bottom of right foot x 1 week ROSA Myers is a 74 year old female [...] CATARACT EXTRACTION HX; Right 02/24/2022: EGD W/O [facility] SPEC VARICIES INJ; N/A [...] Syringe-Needle U-100 1 mL 29 gauge x 1/2" 1 Each once daily. USE ONE SYRINGE FOR EACH INSULIN DOSE/ 1 PER DAY insulin needles, DISPOSABLE, (PEN NEEDLE) 31 gauge x 5/16" Use 4 times daily to inject insulin [...] 1 capsule by mouth once daily. Insulin [place], Disposable, (RELION PEN NEEDLES) 32 x 5/32 " ndle Use as directed with insulin pen. [...] Albumin:Creatinine Ratio due o (more content not included)...[facility]08-07-2024 NoteHNO ID: [id number] Author: JESSICA MCKINNON MA Service: ? Author Type: Digital Strategist Type: Progress Notes Filed: 05/03/2024 09:11 Note Text: POPULATION HEALTH NAVIGATION OUTREACH Action/FYI Patient is on [facility] CURRENT [employer]OSTER Workbench list for below and [...] Controlling Blood Pressure Upcoming OV converted per [place] protocol to AWV. Updated notes to address due care gap and HCC gap closure No HCC BP to be addressed at upcoming appointment Reason for Outreach Care Gap/HCC or Scheduling Wellness Visits Care Gaps due: Medicare Annual Wellness Visit Controlling Blood Pressure Patient Contacted: Unable or unnecessary to reach patient: Patient already scheduled Updated appointment notes Navigation Signature: Jessica Mckinnon MA May 03, 2024 9:09 [facility]08-07-2024 History of Present illness Narrative* Jessica Mckinnon MA - 05/03/2024 9:08 AM EDT POPULATION HEALTH NAVIGATION OUTREACH Action/FYI Patient is on [facility] CURRENT [facility] Workbenc list for below and needs appointment to [...] Controlling Blood Pressure Upcoming OV converted per [place] protocol to AWV. Updated notes to address due care gap and HCC gapclosure No HCC BP to be addressed at upcoming appointment Reason for Outreach Care Gap/HCC or Scheduling Wellness Visits Care Gaps due: Medicare Annual Wellness Visit Controlling Blood Pressure Patient Contacted: Unable or unnecessary to reach patient: Patient already scheduled Updated appointment notes Navigation Signature: Jessica Mckinnon MA May 03, 2024 9:09 AM documented in this encounterAshtabula General Hospital08-07-2024 NotePatient Outreach (NETNAV) ROSA MYRES ([id number]) 1950 F Date Time Provider Department 05/03/24 JESSICA MCKINNON NETNAAshwini During your visit today, we recorded the following information about you: Jessica Mkcinnon MA 05/03/2024 9:11 AM Signed POPULATION HEALTH NAVIGATION OUTREACH Action/FYI Patient is on [facility] CURRENT [employer]OST[employer] Workbenc list for below and needs appointment to [...] Controlling Blood Pressure Upcoming OV converted per [place] protocol to AWV. Updated notes to address due care gap and HCC gap closure No HCC BP to be addressed at upcoming appointment Reason for Outreach Care Gap/HCC or Scheduling Wellness Visits Care Gaps due: Medicare Annual Wellness Visit Controlling Blood Pressure Patient Contacted: Unable or unnecessary to reach patient: Patient already scheduled Updated appointment notes Navigation Signature: Jessica Mckinnon MA May 03, 2024 9:09 AM Allergies As of Date: 05/03/2024 Noted Allergy Reaction DIANA INHIBITORS 07/17/2005 NEOMYCIN 07/17/2005 Date Reviewed: 04/10/2024 Reviewed by: Mariza Graham MA - Fully Assessed Reason for Visit: Population Health Navigation Outreach [3910] Cmt: Nadeen Workbench - [facility] Prescriptions as of 05/03/2024 - dapagliflozin [...] Syringe-Needle U-100 1 mL 29 gauge x 1/2" 1 Each once daily. USE ONE SYRINGE FOR EACH INSULIN DOSE/ 1 PER DAY - insulin needles, DISPOSABLE, (PEN NEEDLE) 31 gauge x 5/16" Use 4 times daily to inject insulin [...] capsule by mouth once daily. - Insulin [place], Disposable, (RELION PEN NEEDLES) 32 x 5/32 " ndle Use as directed with insulin pen. 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 Reminder of appt date and time in 3 months. [facility]07-24-2024 Miscellaneous Notes* Telephone Encounter - Diana Whittington LPN - 04/19/2024 9:04 AM EDT Patient returned call and went over results, notes from Dr James with understanding. Reminder of appt date and time in 3 months. * Telephone Encounter - Mariza Graham MA - 04/18/2024 1:18 PM EDT Tried to reach pt at her number and pt son at his number but both lines just ring. Will try to call again later. Mariza Graham MA * Telephone Encounter - Amado James MD - 04/18/2024 11:36 AM EDT Please notify patient that her lab results are stable; stay on the same medications and follow up as planned in 3 months. Amado James MD documented in this encounterAshtabula General Hospital07-23-2024 Telephone encounter Note * Telephone Encounter - Mariza Graham MA - 04/18/2024 1:18 PM EDT Tried to reach pt at her number and pt son at his number but both lines just ring. Will try to call again later. Mariza Graham MA [facility]07-23-2024 Telephone encounter Note* Telephone Encounter - Amado James MD - 04/18/2024 11:36 AM EDT Please notify patient that her lab results are stable; stay on the same medications and follow up as planned in 3 months. Amado James MD [facility]07-15-2024 History of Present illness Narrative* Amado James MD - 04/10/2024 6:00 PM EDT Chief Complaint Patient presents with: Physical HPI [...] taking ASA 81 mg daily. Follows with [facility]; had recent echo showing no change [...] Syringe-Needle U-100 1 mL 29 gauge x 1/2" 1 Each once daily. USE ONE SYRINGE FOR EACH INSULIN DOSE/ 1 PER DAY insulin needles, DISPOSABLE, (PEN NEEDLE) 31 gauge x 5/16" Use 4 times daily to inject insulin [...] 1 capsule by mouth once daily. Insulin [place], Disposable, (RELION PEN NEEDLES) 32 x 5/32 " ndle Use as directed with insulin pen. [...] PPSV23 or PCV20) due on 04/15/2024 Covid-19 Vaccine( - 2022- season) due on 04/10/2025 Annual PCP Team [...] 2. Chronic kidney disease, stage 4 (severe) (HCC) - ICD9: 585.4, ICD10: N18.4 - eGFR: 27 Stable 3. Heart failure, unspecified HF chronicity, unspecified heart failure type (HCC) - ICD9: 428.9, ICD10: I50.9 Follow with cardiology 4. Morbid obesity with body mass index of 40.0-44.9 in adult (HCC) - ICD9: 278.01, V85.41, ICD10: E66.01, Z68.41 5. Type 2 diabetes mellitus with stage 3b chronic kidney disease, without long- term current use of insulin (HCC) - ICD9: [...] Past Histories independently gathered by the clinical cryptologic support specialist and the remaining scribed note accurately describes my personal service to the patient. Medical Decision Making: Problems: Moderate: 1+ chronic illnesses with change and 2+ stable chronic illnesses Data: Unique test(s) ordered: 3+ Risk: Moderate: Drug management Medical Decision Making Level: 4 - Moderate Amado James MD The documentation for this note was completed by Mariza Graham MA acting as scribe for Amado James MD. April 10, 2024 6:09 PM. Mariza Graham MA documented in this encounterAshtabula General Hospital07-15-2024 NoteHNO ID: [id number] Author: AMADO JAMES MD Service: ? Author Type: Physician Type: [...] taking ASA 81 mg daily. Follows with [facility]; had recent echo showing no change [...] Syringe-Needle U-100 1 mL 29 gauge x 1/2" 1 Each once daily. USE ONE SYRINGE FOR EACH INSULIN DOSE/ 1 PER DAY insulin needles, DISPOSABLE, (PEN NEEDLE) 31 gauge x 5/16" Use 4 times daily to inject insulin [...] 1 capsule by mouth once daily. Insulin [place], Disposable, (RELION PEN NEEDLES) 32 x 5/32 " ndle Use as directed with insulin pen. 250.00. 4 injections/day. On insulin. Blood-Glucose Meter, Drum-type (ACCU-CHEK COMPACT PLUS CARE) kit Use as directed cyanocobalamin (VITAMIN B-12) 1,000 mcg tab Take 1 tablet by mouth once daily. Aspirin 81 mg Tab Take 81 mg by mouth. (more content not included)...[facility]07-09-2024 Telephone encounter Note* Telephone Encounter - Maciel Busby APRN.CNP - 04/04/2024 10:49 AM EDT STAMP Please reach out to patient for overdue appointment for chronic disease management with myself. If he/she is no longer following with Dr. James, please remove name from PCP field. Due for Medicare Wellness/Follow up, would need 40 minutes. Maciel Busby APRN.CNP [facility]07-09-2024 Miscellaneous Notes* Telephone Encounter - Maciel Busby APRN.CNP - 04/04/2024 10:49 AM EDT STAMP Please reach out to patient for overdue appointment for chronic disease management with myself. If he/she is no longer following with Dr. James, please remove name from PCP field. Due for Medicare Wellness/Follow up, would need 40 minutes. Maciel Busby APRN.CNP documented in this encounterAshtabula General Hospital06-03-2024 NoteHNO ID: [id number] Author: JESSICA MCKINNON MA Service: ? Author Type: Digital Strategist Type: Progress Notes Filed: 02/28/2024 11:30 Note Text: POPULATION HEALTH NAVIGATION OUTREACH Action/FYI Patient is on [facility] [employer] CURRENT [employer]OST[employer] Workbench list for [...] leave message HCC related Navigation Signature: Jessica Mckinnon MA February 28, 2024 11:27 [facility]06-03-2024 History of Present illness Narrative* Jessica Mckinnon MA - 02/28/2024 11:27 AM EDT POPULATION HEALTH NAVIGATION OUTREACH Action/FYI Patient is on [facility] [employer] CURRENT [employer]OSTER Workbench list for [...] leave message HCC related Navigation Signature: Jessica Mckinnon MA February 28, 2024 11:27 AM documented in this encounterAshtabula General Hospital06-03-2024 NotePatient Outreach (NETNAV) ROSA MYERS ([id number]) 1950 F Date Time Provider Department 02/28/24 JESSICA MCKINNON NETNAV During your visit today, we recorded the following information about you: Jessica Mckinnon MA 02/28/2024 11:30 AM Signed POPULATION HEALTH NAVIGATION OUTREACH Action/I Patient is on [facility] CURRENT ROSTER Workbench list for below and [...] to reach patient: Unable to leave message [facility] related Navigation Signature: Jessica Mckinnon MA February 28, 2024 11:27 AM Allergies As of Date: 02/28/2024 Noted Allergy Reaction DIANA INHIBITORS 07/17/2005 NEOMYCIN 07/17/2005 Date Reviewed: 04/15/2023 Reviewed by: Yaz Christy MA - Fully Assessed Reason for Visit: Population Health Navigation Outreach [3910] Cmt: Nadeen [facility] 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 - AWV, Care gaps, HCC gap closure - [place] PCSA Prescriptions as of 02/28/2024 - carvedilol [...] Syringe-Needle U-100 1 mL 29 gauge x 1/2" 1 Each once daily. USE ONE SYRINGE FOR EACH INSULIN DOSE/ 1 PER DAY - insulin needles, DISPOSABLE, (PEN NEEDLE) 31 gauge x 5/16" Use 4 times daily to inject insulin [...] capsule by mouth once daily. - Insulin Center Point, Disposable, (RELION PEN NEEDLES) 32 x 5/32 " ndle Use as directed with insulin pen. 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 Requested Prescriptions Pending Prescriptions Disp Refills carvedilol (COREG) 12.5 mg tablet 180 tablet 3 Sig: Take 1 tablet by mouth two times a day. Maciel Busby APRN.CNP [facility]05-28-2024 Miscellaneous Notes* Telephone Encounter - Maciel Busby APRN.CNP - 02/22/2024 2:32 PM EDT The following approved medication requests have been transmitted electronically. Requested Prescriptions Pending Prescriptions Disp Refills carvedilol (COREG) 12.5 mg tablet 180 tablet 3 Sig: Take 1 tablet by mouth two times a day. Maciel Busby APRN.CNP * Telephone Encounter - Cindy Corona - 02/22/2024 1:54 PM EDT Patient has been identified by name and date of : Yes, Provider Dr James Date 02-22-24 Time 1:55p Patient phones for refill(s): Requested Prescriptions Pending Prescriptions Disp Refills carvedilol (COREG) 12.5 mg tablet 180 tablet 3 Sig: Take 1 tablet by mouth two times a day. Date of last office visit in primary care: 04/15/2023 Date of next office visit in primary care: Visit date not found Please advise. Thank you. Cindy Heart. documented in this encounterAshtabula [facility]05-28-2024 Telephone encounter Note * Telephone Encounter - Cindy Corona - 02/22/2024 1:54 PM EDT Patient has been identified by name and date of : Yes, Provider Dr James Date 02-22-24 Time 1:55p Patient phones for refill(s): Requested Prescriptions Pending Prescriptions Disp Refills carvedilol (COREG) 12.5 mg tablet 180 tablet 3 Sig: Take 1 tablet by mouth two times a day. Date of last office visit in primary care: 04/15/2023 Date of next office visit in primary care: Visit date not found Please advise. Thank you. Cindy Bull Pss. [facility]04-25-2024 Telephone encounter Note* Telephone Encounter - Yaz Christy MA - 01/20/2024 2:12 PM EDT Call to pt's son and notified him that Rx has been sent in, verbalized understanding. Yaz Christy MA [facility]04-25-2024 Miscellaneous Notes* Telephone Encounter - Yaz Christy MA - 01/20/2024 2:12 PM EDT Call to pt's son and notified him that Rx has been sent in, verbalized understanding. Yaz Christy MA * Telephone Encounter - Amado James MD - 01/20/2024 1:58 PM EDT OK to refill as ordered Amado James MD * Telephone Encounter - Judie Paiz RN - 01/20/2024 11:03 AM EDT Son calls to report that he went to pick Levemir up at pharmacy and it was a vial instead of the pens which patient hasn't difficulty utilizing. Son didn't fill prescription and is asking for provider to send in prescription for pens. Verified with patient. Pended per request. Judie Paiz, RN documented in this encounterAshtabula General Hospital04-25-2024 Telephone encounter Note * Telephone Encounter - Amado James MD - 01/20/2024 1:58 PM EDT OK to refill as ordered Amado James MD [facility]04-25-2024 NoteHNO ID: [id number] Author: CINDY EVANS MA Service: ? Author Type: Digital Strategist Type: Progress Notes Filed: 01/20/2024 11:04 Note Text: POPULATION HEALTH NAVIGATION OUTREACH Action/FYI Letter received and sent to be mailed. Navigation Signature: Cindy Evans Population Health Navigator January 20, 2024 11:03 [facility]04-25-2024 Telephone encounter Note* Telephone Encounter - Judie Paiz RN - 01/20/2024 11:03 AM EDT Son calls to report that he went to pick Levemir up at pharmacy and it was a vial instead of the pens which patient hasn't difficulty utilizing. Son didn't fill prescription and is asking for provider to send in prescription for pens. Verified with patient. Pended per request. Judie Paiz RN [facility]04-23-2024 NoteHNO ID: [id number] Author: JESSICA MCKINNON MA Service: ? Author Type: Digital Strategist Type: Progress Notes Filed: 01/18/2024 10:23 Note Text: POPULATION HEALTH NAVIGATION OUTREACH Action/FYI Patient is on Nadeen [employer] Workbench list for below and needs appointment to address: DTaP,Tdap,Td Vaccine(1 - Tdap) RSV Vaccine(1 - 1-dose 60+ series) Dilated Retinal Exam Covid-19 Vaccine( - season) Advance Directive Discussion Behavioral Health Screening [...] patient: Unable to leave message Letter mailed [facility] related Navigation Signature: Jessica Mckinnon MA January 18, 2024 7:29 [facility]04-23-2024 History of Present illness Narrative* Jessica Mckinnon MA - 01/18/2024 7:28 AM EDT POPULATION HEALTH NAVIGATION OUTREACH Action/I Patient is on Nadeen TIJERINA Roster Workbench list for below and needs appointment to address: DTaP,Tdap,Td Vaccine(1 - Tdap) RSV Vaccine(1 - 1-dose 60+ series) Dilated Retinal Exam Covid-19 Vaccine( - season) Advance Directive Discussion Behavioral Health Screening [...] patient: Unable to leave message Letter mailed [facility] related Navigation Signature: Jessica Mckinnon MA January 18, 2024 7:29 AM documented in this encounterAshtabula General Hospital04-23-2024 NotePatient Outreach (NETNAV) ROSA MYERS ([id number]) 1950 F Date Time Provider Department 01/18/24 MONSKE, JESSICA A NETNAV During your visit today, we recorded the following information about you: Jessica Mckinnon MA 01/18/2024 10:23 AM Addendum POPULATION HEALTH NAVIGATION OUTREACH Action/FYI Patient is on Nadeen [facility] list for below and needs appointment to address: DTaP,Tdap,Td Vaccine(1 - Tdap) RSV Vaccine(1 - 1-dose 60+ series) Dilated Retinal Exam Covid-19 Vaccine(2022-24 season) Advance Directive Discussion Behavioral Health Screening [...] patient: Unable to leave message Letter mailed [facility] related Navigation Signature: Jessica Mckinnon MA January 18, 2024 7:29 AM Cindy Evans MA 01/20/2024 11:04 AM Signed POPULATION HEALTH NAVIGATION OUTREACH Action/FYI Letter received and sent to be mailed. Navigation Signature: Cindy Evans Population Health Navigator January 20, 2024 11:03 AM Allergies As of Date: 01/18/2024 Noted Allergy Reaction DIANA INHIBITORS 07/17/2005 NEOMYCIN 07/17/2005 Date Reviewed: 04/15/2023 Reviewed by: Yaz Christy MA - Fully Assessed Reason for Visit: Population Health Navigation Outreach [3910] Cmt: [facility] - [facility]V, Care gaps, HCC gap closure [...] Syringe-Needle U-100 1 mL 29 gauge x 1/2" 1 Each once daily. USE ONE SYRINGE FOR EACH INSULIN DOSE/ 1 PER DAY - insulin needles, DISPOSABLE, (PEN NEEDLE) 31 gauge x 5/16" Use 4 times daily to inject insulin [...] capsule by mouth once daily. - Insulin Center Point, Disposable, (RELION PEN NEEDLES) 32 x 5/32 " ndle Use as directed with insulin pen. [...] kidney disease, stage 4 (severe) (HCC) *04/15/2023 correction current use of insulin (HCC) [Z79.4] 10/15/2023 Heart failure, unspecified (HCC) [I50.9] 04/15/2023 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*04/15/2023 Letter Text Encoun (more content not included)...[facility]04-18-2024 Miscellaneous Notes* Telephone Encounter - Amado James MD - 01/13/2024 11:53 AM EDT OK to refill as ordered Amado James MD * Telephone Encounter - Anastasia Mcdermott - 01/13/2024 10:17 AM EDT Patient has been identified by name and [...] Thank you. Anastasia Mcdermott. documented in this encounterAshtabula General Hospital03-07-2024 Miscellaneous Notes* Telephone Encounter - Maciel Busby APRN.RENEE - 12/02/2023 12:57 PM EST The following approved medication requests have been [...] DAILY WITH MEALS DIRECTED Maciel Busby APRN.CNP * Telephone Encounter - Pushpa Klein - 12/02/2023 12:39 PM EST Patient has been identified by name and [...] pharmacy. No need to notify patient. Pushpa Heart documented in this encounterAshtabula General Hospital03-01-2024 History of Present illness Narrative* Sandrita Caputo - 11/26/2023 1:21 PM EST Rosa Myesr is identified through a medication adherence outreach initiative based on pharmacy claims data from [employer] (insurer) for Statin medication(s). Patient is reviewed [...] outcome source and status) - left message Sandrita Caputo documented in this encounterAshtabula General Hospital09-25-2023 Miscellaneous Notes* Telephone Encounter - Cha Taveras MA - 06/21/2023 2:29 PM EDT Patient notified of results, verbalizes understanding of instructions. Cha Taveras MA * Telephone Encounter - Maciel Busby APRN.CNP - 06/21/2023 2:18 PM EDT Please let the patient know that we received paperwork from her cardiology office. TSH is mildly elevated at 4. Previous TSH labs from our office have been normal. I added a TSH onto her upcoming blood work in September for her to get so that we can recheck. Maciel Busby APRN.CNP documented in this encounterAshtabula General Hospital09-18-2023 Miscellaneous Notes* Telephone Encounter - Maciel Busby APRN.CNP - 06/14/2023 12:38 PM EDT The following approved medication requests have been transmitted electronically. Requested Prescriptions Pending Prescriptions Disp Refills dapagliflozin propanediol (FARXIGA) 10 mg tablet 90 tablet 3 Sig: Take 1 tablet by mouth daily with breakfast. Maciel Busby APRN.CNP * Telephone Encounter - Cha Taveras MA - 06/14/2023 12:19 PM EDT SUZANNA: 04/15/23 with PCP NOV: 10/19/22-6 month f/u with PCP Last refill: 06/22/22 -historical med update (Dr. Stallings originally prescribed) Cha Taveras MA * Telephone Encounter - Sandrita Weldon - 06/14/2023 10:50 AM EDT Patient has been identified by name and [...] daily with breakfast. Please review and advise. Sandrita Weldon documented in this encounterAshtabula General Hospital07-20-2023 History of Present illness Narrative* Amado James MD - 04/15/2023 3:40 PM EDT Chief Complaint Patient presents with: F/U 3 [...] help. 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 HM - Denies having Adv Dir/Living Will. [...] Syringe-Needle U-100 1 mL 29 gauge x 1/2" 1 Each once daily. USE ONE SYRINGE FOR EACH INSULIN DOSE/ 1 PER DAY insulin needles, DISPOSABLE, (PEN NEEDLE) 31 gauge x 5/16" Use 4 times daily to inject insulin [...] 1 capsule by mouth once daily. Insulin Center Point, Disposable, (RELION PEN NEEDLES) 32 x 5/32 " ndle Use as directed with insulin pen. [...] in no acute distress, well-hydrated, well nourished. andObese. Skin: Lesion mid forehead scabbed. Improved from [...] with stage 3b chronic kidney disease, without long- term current use of insulin (HCC) - ICD9: [...] 4. Chronic kidney disease, stage 4 (severe) (HCC) - ICD9: 585.4, ICD10: N18.4 - Stable [...] mass index of 40.0-44.9 in adult (HCC) - ICD9: 278.01, V85.41, ICD10: E66.01, Z68.41 Stable - Cont watching diet 6 mo f/u with labs. I agree with the Chief Complaint, ROS, and Past Histories independently gathered by the clinical cryptologic support specialist and the remaining scribed note accurately describes my personal service to the patient. Medical Decision Making: Problems: Moderate: 2+ stable chronic illnesses Data: Unique test result(s) reviewed: 3+ Unique test(s) ordered: 3+ Risk: Moderate: Drug management Medical Decision Making Level: 4 - Moderate Amado James MD The documentation for this note was completed by Yaz Christy Ma acting as scribe for Amado James MD. April 15, 2023 3:50 PM. Yaz Christy Ma documented in this encounterAshtabula General Hospital05-01-2023 History of Present illness Narrative* Samia Hollingsworth Population Health Navigator - 01/25/2023 10:33 AM EDT POPULATION HEALTH NAVIGATION OUTREACH Action/FYI Spoke with patient who declines to schedule Colonoscopy, TERESA and mammogram Patient Identified by Name and : YES, via phone Outreach Outcome/Action Spoke to patient / parent / legal guardian: Patient declined Did you use a PCP flex slot to schedule this appointment? N/A Reason for Outreach Care Gap or Scheduling/Wellness visits Payer: Payor: NADEEN [employer] [facility] / Plan: NADEEN MANDEL ACCESS / Product Type: PPO / Care [...] Health Navigator January 25, 2023 10:41 AM Electronically signed by Samia Hollingsworth [facility] Health Navigator at 01/25/2023 10:44 AM EDT documented in this encounterAshtabula General Hospital04-24-2023 Miscellaneous Notes* Telephone Encounter - Mariza Graham Ma - 01/18/2023 11:12 AM EDT Order report for Humalog faxed to [facility], notifying them to fill. Mariza Graham Ma * Telephone Encounter - Sunni Wells - 01/18/2023 10:38 AM EDT Rosa Myers is calling Amado James MD today with concern regarding the RX for Humalog kwedmundopen has not been received at the [facility] pharmacy in [place]. Please send today if possible. Patientstates she did call our office and was advised this RX was already sent to [facility]. Patient notes the pharmacy has checked for this new RX and they state they do not have receipt of this. Patient has been identified by name and birthdate. Duration of symptoms: N/A Person calling: self Call patient at: at home [phone] (home) Was an appointment scheduled: No Closing statement: Results or non-symptom based questions: Thank you for calling [facility], your call will be returned within the next business day. Sunni [facility]dy [facility] documented in this encounterAshtabula [facility] Hospital03-29-2023 History of Present illness Narrative* Aston Duarte (Consumer Lender) - 12/23/2022 5:59 PM EDT Rosa Myers is identified through a medication adherence outreach initiative based on pharmacy claims data from [employer] (insurer) for Non-insulin DM medication(s). Patient is reviewed 12/23/22 due to medication adherence concerns with the following medications (name, strength, sig): Farxiga 10mg, QD. Per reconcile dispense, last fill date and days supply: Filled 12/15/22 for 30 day supply Outcome of review/outreach: (choose outcome source and status) - Filled before Next fill date per reconcile dispense Aston Duarte (Consumer Lender) documented in this encounterAshtabula General Hospital03-20-2023 Miscellaneous Notes* Telephone Encounter - Maciel Busby APRN.CNP - 12/14/2022 10:22 AM EDT The following approved medication requests have been [...] by mouth twice daily. Maciel Busby APRN.CNP * Telephone Encounter - Pushpa Neff Pss - 12/14/2022 8:51 AM EDT Patient has been identified by name and [...] patient. Pushpa Neff Pss documented in this encounterAshtabula General Hospital02-07-2023 Miscellaneous Notes* Telephone Encounter - Yaz Christy Ma - 11/03/2022 3:21 PM EST The following approved medication requests have been transmitted electronically. Requested Prescriptions Signed Prescriptions Disp Refills insulin detemir U-100 (LEVEMIR U-100 INSULIN) 100 unit/mL injection 10 mL 5 Sig: Inject 70 Units subcutaneously every morning. Authorizing Provider: AMADO JAMES Insulin Syringe-Needle U-100 1 mL 29 gauge x 1/2" 50 Each 11 Si Each once daily. USE ONE SYRINGE FOR EACH INSULIN DOSE/ 1 PER DAY Authorizing Provider: AMADO JAMES Ma * Telephone Encounter - Amado James MD - 11/03/2022 2:56 PM EST Levemir vials and insulin syringes ordered Amado James MD * Telephone Encounter - Kathi Crane LPN - 10/30/2022 10:50 AM EST Jacqueline with [employer] called and they are not able to get the Levemir pens because they are making changes on this. Asking if they can give the vials and syringes will be needed also. Please advise the pharmacy with new prescriptions. Kathi Crane LPN documented in this encounterAshtabula General Hospital10-19-2022 Miscellaneous Notes* Telephone Encounter - Amado James MD - 07/15/2022 6:31 PM EDT OK to refill as ordered Amado James MD * Telephone Encounter - Rufina Stuart - 07/15/2022 4:42 PM EDT Patient has been identified by name and date of : Yes Patient phones for refill(s): Requested Prescriptions Pending Prescriptions Disp Refills insulin lispro (HUMALOG KWIKPEN INSULIN) 100 unit/mL 30 Each 3 Sig: INJECT 20 UNITS SUBCUTANEOUSLY THREE TIMES DAILY WITH MEALS DIRECTED insulin needles, DISPOSABLE, (PEN NEEDLE) 31 gauge x 5/16" 150 Each 11 Sig: Use 4 times [...] Thank you. Rufina Stuart documented in this encounterAshtabula General Hospital10-18-2022 Miscellaneous Notes* Telephone Encounter - Maciel Busby APRN.CNP - 07/14/2022 11:55 AM EDT The following approved medication requests have been transmitted electronically. Requested Prescriptions Pending Prescriptions Disp Refills blood sugar diagnostic (BLOOD GLUCOSE TEST) test strip 100 Each 3 Sig: Alvina test strips. Test blood sugars once daily as directed. Dx: E11.9. Insulin: Yes Maciel Busby APRN.CNP * Telephone Encounter - Nata Bear - 07/14/2022 10:35 AM EDT Patient has been identified by name and [...] notify patient. Nata Bear documented in this encounterAshtabula General Hospital10-17-2022 History of Present illness Narrative* Amado James MD - 07/13/2022 3:40 PM EDT Chief Complaint Patient presents with: F/U 3 Month HPI Rosa Myers is a 72 year old female who presents here today for a 3 month follow up. Pt here today for a 3 month follow up. Here today with her son, JONY Faith - Was prescribed Protonix 40 mg bid, [...] urinate all the time and waking up 3-4times to urinate. Asking about taking Aldactone vs [...] 06/03/22. Stress test completed on 06/17/22. On currentregimen of Lasix 40 mg bid and Aldactone [...] needles, DISPOSABLE, (PEN NEEDLE) 31 gauge x 5/16" ndle Use 4 times daily to inject insulin Insulin Center Point, Disposable, (RELION PEN NEEDLES) 32 x 5/32 " ndle Use as directed with insulin pen. [...] in no acute distress, well-hydrated, well nourished. andObese. Lungs: Lungs clear to auscultation. No wheezing, [...] Lymph% 07/06/2022 15.4 Abs Lymph 07/06/2022 1.30 Hopkins% 07/06/2022 9.6 Abs Hopkins 07/06/2022 0.81 Eosin% 07/06/2022 1.7 Abs Eosin 07/06/2022 0.14 Baso% 07/06/2022 1.1 Abs Baso 07/06/2022 0.09 Immature Gran % 07/06/2022 0.4 Abs Immature Gran 07/06/2022 0.03 NRBC 07/06/2022 0.0 Absolute nRBC 07/06/2022 <0.01 Diff Type 07/06/2022 Auto ASSESSMENT/PLAN: 1. Controlled type 2 diabetes mellitus without complication, with long-term current use of insulin ([facility]) - ICD9: 250.00, V58.67, ICD10: E11.9, [...] Past Histories independently gathered by the clinical cryptologic support specialist and the remaining scribed note accurately describes my personal service to the patient. Medical Decision Making: Problems: Moderate: 2+ stable chronic illnesses Data: Unique test result(s) reviewed: 3+ Unique test(s) ordered: 3+ Risk: Moderate: Drug management Medical Decision Making Level: 4 - Moderate Amado James MD The documentation for this note was completed by Yaz Christy Ma acting as scribe for Amado James MD. July 13, 2022 3:36 PM. Yaz Christy Ma documented in this encounterAshtabula General Hospital07-12-2022 Instructions* Patient Instructions* Yaz Christy Ma - 04/07/2022 3:35 PM EDT Anemia - Take Iron once daily, may only need to take for a few months. Gastro - Continue to take Protonix 40 mg once daily. New prescription has been sent into the pharmacy. Skin - Refer to Dermatology to evaluate the area, if not improving. documented in this encounterAshtabula General Hospital07-12-2022 History of Present illness Narrative* Amado James MD - 04/07/2022 3:20 PM EDT Chief Complaint Patient presents with: F/U 6 Month HPI Rosa Myers is a 72 year old female who presents here today for 6 month follow up. Pt here today for her routine 6 month follow up. Pt seen in office on 03/18/22 for a hospital f/u. Pt here today with her gzihxrzc-ki-fpo, Ave. GI - Was prescribed Protonix 40 [...] bleed and continued anemia. Pt today states thatshe is currently not taking Iron as it makes her "just have to take one more pill". She does drink Ensure to help replace [...] 75 mg once daily. HM - Declines DocsInk. Does not have Adv Dir/Living Will. Past [...] needles, DISPOSABLE, (PEN NEEDLE) 31 gauge x 5/16" ndle Use 4 times daily to inject insulin Insulin Center Point, Disposable, (RELION PEN NEEDLES) 32 x 5/32 " ndle Use as directed with insulin pen. [...] in no acute distress, well-hydrated, well nourished. andObese. Skin: Area mid forehead, scabbed in appearance. [...] Lymph% 04/02/2022 10.7 Abs Lymph 04/02/2022 1.17 Hopkins% 04/02/2022 7.3 Abs Hopkins 04/02/2022 0.80 Eosin% 04/02/2022 1.1 Abs Eosin [...] Past Histories independently gathered by the clinical cryptologic support specialist and the remaining scribed note accurately describes my personal service to the patient. Medical Decision Making: Problems: Moderate: 2+ stable chronic illnesses Data: Unique test result(s) reviewed: 3+ Unique test(s) ordered: 3+ Risk: Moderate: Drug management Medical Decision Making Level: 4 - Moderate Amado James MD The documentation for this note was completed by Yaz Christy Ma acting as scribe for Amado James MD. April 07, 2022 3:43 PM. Yaz Christy Ma documented in this encounterAshtabula General Hospital06-20-2022 History of Present illness Narrative* Samia Hollingsworth Population Health Navigator - 03/16/2022 2:37 PM EDT POPULATION HEALTH NAVIGATION OUTREACH Action/FYI Vm left for a return call Due for TERESA, colonoscopy and mammogram Pt identified by name and : NO Outreach Outcome/Action Unable to reach patient: Left message Did you use a PCP flex slot to schedule this appointment? N/A Reason for Outreach Care Gap or Scheduling/Wellness visits Payer: Payor: NADEEN [employer] / Plan: [employer] ACCESS / Product Type: PPO / Care [...] 16, 2022 2:38 PM documented in this encounterAshtabula General Hospital01-04-2022 History of Past illness Narrative* Problem Noted Date Diagnosed Date Resolved Date Stage 3b chronic kidney disease 09/30/2021 10/15/2023 documented as of this encounter (statuses as of 11/26/2023) [facility] History of Past illness Narrative* Problem Noted Date Diagnosed Date Resolved Date Stage 3b chronic kidney disease 09/30/2021 10/15/2023 documented as of this encounter (statuses as of 12/02/2023) [facility] History of Past illness Narrative* Problem Noted Date Diagnosed Date Resolved Date Stage 3b chronic kidney disease 09/30/2021 10/15/2023 documented as of this encounter (statuses as of 01/14/2024) [facility] Evaluation note* Diagnosis Onset Date Resolution Status SALGADO (dyspnea on exertion) ac [place] 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 heart failure) chronic Essential hypertension chron ic History of coronary artery stent placement September, chronic Hyperlipidemia chronic Ischemic cardiomyopathy [facility] Work Phone: Evaluation note* Diagnosis Onset Date Resolution Status ELIDA (acute kidney injury) ac [place] Anemia acute Elevated d-dimer acute GI bleed acute CHF exacerbation chronic [facility] Work Phone: Evaluation note* Diagnosis Encounter for screening mammogram for breast cancer documented in this encounter [facility] note* Diagnosis Onset Date Resolution Status ELIDA (acute kidney injury) re solved CHF exacerbation resolved Elevated d-dimer resolved [facility] Work Phone: evaluation note* Diagnosis Controlled type 2 diabetes mellitus [...] of digestive system documented in this encounter [facility] note* Diagnosis Onset Date Resolution Status ELIDA (acute kidney injury) re solved CHF exacerbation resolved Elevated d-dimer resolved 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 heart failure) chronic Chronic kidney disease (CKD) chronic Essential hypertension chron ic History of coronary artery stent placement September, chronic Hyperlipidemia chronic Ischemic cardiomyopathy [facility] Work Phone: Evaluation note* Diagnosis Controlled type 2 diabetes mellitus [...] of digestive system documented in this encounter [facility] note* Diagnosis Controlled type 2 diabetes mellitus without complication, with long-term current use of insulin (HCC)- Primary [facility]* Diagnosis Controlled type 2 diabetes mellitus without complication, with long-term current use of insulin (HCC) Controlled type 2 diabetes mellitus without complication, without long-term current use of insulin (HCC) [facility]* Diagnosis Type 2 diabetes mellitus with stage 3b chronic kidney disease, without long-term current use of insulin (HCC)- Primary [facility]* Diagnosis Essential hypertension, benign Cerebral infarction, unspecified mechanism (HCC) [facility]* Diagnosis Encounter for screening mammogram for breast cancer [facility] Diagnosis Type 2 diabetes mellitus with [...] (HCC) Morbid obesity [facility] Diagnosis Elevated TSH- Primary Nonspecific abnormal results of thyroid function study [facility] Diagnosis Bilateral leg edema Edema Essential hypertension, benign Type 2 diabetes mellitus with stage 3b chronic kidney disease, without long-term current use of insulin (HCC) Controlled type 2 diabetes mellitus without complication, with long-term current use of insulin (HCC) documented [facility]* Diagnosis Type 2 diabetes mellitus with stage 3b chronic kidney disease, without long-term current use of insulin (HCC) [facility] Diagnosis Controlled type 2 diabetes mellitus without complication, with long-term current use of insulin (HCC) [facility] Diagnosis Essential hypertension, benign [facility] Diagnosis Hyperlipidemia, unspecified hyperlipidemia type- Primary [...] site Other depression [facility] Diagnosis Diabetic ulcer of right midfoot associated with type 2 diabetes mellitus, unspecified ulcer stage (HCC)- Primary Morbid obesity with body mass index of 40.0-44.9 in adult (HCC) Morbid obesity Essential hypertension, benign Type 2 diabetes mellitus with chronic kidney disease, with long-term current use of insulin, unspecified CKD stage ([facility]) [facility] Diagnosis Type 2 diabetes mellitus with stage 3b chronic kidney disease, without long-term current use of insulin ([facility]) Controlled type 2 diabetes mellitus without complication, with long-term current use of insulin ([facility]) [facility] Diagnosis Encounter for annual wellness exam in Medicare patient- Primary Type 2 diabetes mellitus with chronic kidney disease, with long-term current use of insulin, unspecified CKD stage (HCC) Essential hypertension, benign Hyperlipidemia, unspecified hyperlipidemia type Chronic kidney disease, stage 4 (severe) ([facility]) Heart failure, unspecified HF chronicity, unspecified heart failure type (HCC) Bilateral leg edema Edema Diabetic ulcer of right midfoot associated with type 2 diabetes mellitus, unspecified ulcer stage ([facility]) Other depression Anemia, unspecified type Morbid obesity with body mass index of 40.0-44.9 in adult ([facility]) Morbid obesity [facility] Diagnosis Type 2 diabetes mellitus with chronic kidney disease, with long-term current use of insulin, unspecified CKD stage (HCC)- Primary [facility] Diagnosis Hospital discharge follow-up- Primary Other follow-up examination Type 2 diabetes mellitus with hypoglycaemia without coma ([facility]) CKD (chronic kidney disease) stage 4, GFR 15-29 ml/min (HCC) Chronic kidney disease, Stage IV (severe) Chronic anemia Anemia, unspecified Chronic heart failure with preserved ejection fraction ([facility]) [facility] Diagnosis Type 2 diabetes mellitus with chronic kidney disease, with long-term current use of insulin, unspecified CKD stage (HCC)- Primary Essential hypertension, benign Hyperlipidemia, unspecified hyperlipidemia type Chronic kidney disease, stage 4 (severe) (HCC) Chronic anemia Anemia, unspecified Type 2 diabetes mellitus with stage 3b chronic kidney disease, without long-term current use of insulin (HCC) Controlled type 2 diabetes mellitus without complication, with long-term current use of insulin (HCC) documented in this encounter [facility] note* Diagnosis Type 2 diabetes mellitus with chronic kidney disease, with long-term current use of insulin, unspecified CKD stage (HCC)- Primary documented in this encounter [facility] note* Diagnosis Type 2 diabetes mellitus with chronic kidney disease, with long-term current use of insulin, unspecified CKD stage (HCC)- Primary Essential hypertension, benign Hyperlipidemia, unspecified hyperlipidemia type Chronic kidney disease, stage 4 (severe) (HCC) documented in this [facility]* Diagnosis Anemia, unspecified type- Primary documented in this encounter [facility] note* Diagnosis Anemia, unspecified type Chronic renal failure, unspecified CKD stage Pressure injury of sacral region, stage 3 (HCC) Anemia, unspecified type Moderate malnutrition (CMS/HCC) (HCC) Acute metabolic encephalopathy Anxiety and depression Debility Unspecified debility documented in this encounter [facility] note* Diagnosis Dialysis complication, initial encounter- Primary documented in this encounter [facility] note* Diagnosis Dialysis complication, subsequent encounter documented in this encounter [facility] note* Diagnosis Dialysis complication, subsequent encounter documented in this encounter [facility] note* Diagnosis ESRD (end stage renal disease) on dialysis (HCC)- Primary End stage renal disease ESRD (end stage renal disease) on dialysis (HCC) End stage renal disease documented in this encounter [facility] Discharge instructionsAmbulatory Orders* Phase II, Outpatient Cardiac Rehab Location: None Selected [place] [employer] Work Phone: Reason for referral (narrative)* Diagnostic Procedure Only (Routine) - Pending Review Specialty Diagnoses / Procedures Referred By Thuan t Referred To Contact BR IMAGING Diagnoses Encounter for screening mammogram for breast cancer Procedures BUSTER SCREENING SCREENING MAMMOGRAPHY BI 2-VIEW BREAST INC Amado Diaz MD [address] [place] [address] Br Imaging [facility] [place] [address] Referral ID Status Reason Start Date Expiration Date Visits Requested Visits Authorized [id number] Pending Review Auto-Generat ed Referral 03/04/2022 04/03/2023 1 1 [facility] for referral (narrative)* Diagnostic Procedure Only (Routine) - Pending Review Specialty Diagnoses / Procedures Referred By Thuan jama Referred To Contact BR IMAGING Diagnoses Encounter for screening mammogram for breast cancer Procedures BUSTER SCREENING SCREENING MAMMOGRAPHY BI 2-VIEW BREAST INC CAD Amado James MD [address] [place] [address] Br Imaging [address] [place] [address] Referral ID Status Reason Start Date Expiration Date Visits Requested Visits Authorized [id number] Pending Review Auto-Generat ed Referral 02/24/2023 03/25/2024 1 1 [facility] for referral (narrative)No reason for referral [facility] Work Phone: Reason for visit Narrative* Imaging (Emergency) - Closed Specialty Diagnoses / Procedures Referred By Thuan jama Referred To Contact Radiology Diagnoses Dialysis complication, subsequent encounter Procedures IR CVC Tunneled Dialysis Cath Exchange IR CVC tunneled dialysis catheter placement Re Maciel MD [address] [place] [id number] Phone: tel: fax: Referral ID Status Reason Start Date Expiration Date Visits Re quested Visits Authorized [id number] Closed 07/03/2025 07/03/2026 1 1 [facility] Chief Complaint and Reason for Visit Chief Complaint CHF sob Reason for Visit ELIDA (acute kidney in jury) Anemia Elevated d-dimer GI bleed CHF exacerbation Chief Complaint CHF sob Congestive heart failure Congestive heart failure Congestive heart failure Congestive heart failure Congestive heart failure Congestive heart failure Congestive heart failure Reason for Visit ELIDA (acute kidney in jury) Anemia Elevated d-dimer GI bleed CHF exacerbation Chief Complaint CHF sob Congestive heart failure Congestive heart failure Congestive heart failure Congestive heart failure Congestive heart failure Congestive heart failure Congestive heart failure Congestive heart failure LABWORK Reason for Visit ELIDA (acute kidney in jury) CHF exacerbation Elevated d-dimer Chief Complaint CHF sob Congestive heart failure Congestive heart failure Congestive heart failure Congestive heart failure Congestive heart failure Congestive heart failure Congestive heart failure Congestive heart failure LABWORK Congestive heart failure INT LABS Reason for Visit ELIDA (acute kidney in jury) CHF exacerbation Elevated d-dimer Chronic combined systolic and diastolic CHF (congestive heart failure) Chronic kidney disease (CKD) Essential hypertension History of coronary artery stent placement Hyperlipidemia Ischemic cardiomyopathy Chief Complaint CHF Congestive heart failure Congestive heart failure Congestive heart failure Congestive heart failure Congestive heart failure Congestive heart failure LABWORK Congestive heart failure INT LABS CORONARY ARTERY DISEASE CORONARY ARTERY DISEASE Reason for Visit ELIDA (acute kidney in jury) CHF exacerbation Elevated d-dimer Chronic combined systolic and diastolic CHF (congestive heart failure) Chronic kidney disease (CKD) Essential hypertension History of coronary artery stent placement Hyperlipidemia Ischemic cardiomyopathy Chief Complaint 6 M FU Reason for Visit SALGADO (dyspnea on exer tion) Chronic combined systolic and diastolic CHF (congestive heart failure) Essential hypertension History of coronary artery stent placement Hyperlipidemia Ischemic cardiomyopathy Chief Complaint Admit Date HBO CLEARENCE October 26, 2024 8 :45am HBO CLEARENCE November 23, 2024 9:00am 6 M FU January 29, 2025 3:27pm Reason for Visit Admit Date Debility October 26, 2024 8 :45am Diabetes mellitus with diabetic polyneur opathy October 26, 2024 8:45am PAD (peripheral artery disease) October 26, 2024 8:45am Type 2 diabetes mellitus with foot ulcer October 26, 2024 8:45am 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 heart failure) October 26, 2024 8:45am Non-pressure chronic ulcer o f other part of right foot with necrosis of muscle October 26, 2024 8:45am Obesity October 26, 2024 8 :45am 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 October 26, 2024 8:45am Debility November 23, 2024 9:00am Diabetes mellitus with diabetic polyneur opathy November 23, 2024 9:00am PAD (peripheral artery disease) November 23, 2024 9:00am Type 2 diabetes mellitus with foot ulcer November 23, 2024 9:00am 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 heart failure) November 23, 2024 9:00am Essential hypertension November 23 9:00am Obesity November 23, 2024 9:00am 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 November 23, 2024 9:00am SALGADO (dyspnea on exertion) January 29, 2025 3:27pm Atherosclerosis of coronary artery witho ut angina pectoris January 29, 2025 3:27pm 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 heart failure) January 29, 2025 3:27pm Essential hypertension January 29, 2025 3:2 7pm History of coronary artery stent placeme nt January 29, 2025 3:27pm Hyperlipidemia January 29, 2025 3:27pm Ischemic cardiomyopathy January 29, 2025 3: 27pm Secondary pulmonary arterial hypertensio n January 29, 2025 3:27pm Chief Complaint Admit Date HBO CLEARENCE October 26, 2024 8 :45am HBO CLEARENCE November 23, 2024 9:00am 6 M FU January 29, 2025 3:27pm CHF EXA, RIGHT LEG ULCER February 05, 2025 1:07pm CHF EXA, RIGHT LEG ULCER February 05, 2025 1:11pm Reason for Visit Admit Date Debility October 26, 2024 8 :45am Diabetes mellitus with diabetic polyneur opathy October 26, 2024 8:45am PAD (peripheral artery disease) October 26, 2024 8:45am Type 2 diabetes mellitus with foot ulcer October 26, 2024 8:45am 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 heart failure) October 26, 2024 8:45am Non-pressure chronic ulcer o f other part of right foot with necrosis of muscle October 26, 2024 8:45am Obesity October 26, 2024 8 :45am 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 October 26, 2024 8:45am Debility November 23, 2024 9:00am Diabetes mellitus with diabetic polyneur opathy November 23, 2024 9:00am PAD (peripheral artery disease) November 23, 2024 9:00am Type 2 diabetes mellitus with foot ulcer November 23, 2024 9:00am 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 heart failure) November 23, 2024 9:00am Essential hypertension November 23 9:00am Obesity November 23, 2024 9:00am 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 November 23, 2024 9:00am SALGADO (dyspnea on exertion) January 29, 2025 3:27pm Atherosclerosis of coronary artery witho ut angina pectoris January 29, 2025 3:27pm 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 heart failure) January 29, 2025 3:27pm Essential hypertension January 29, 2025 3:2 7pm History of coronary artery stent placeme nt January 29, 2025 3:27pm Hyperlipidemia January 29, 2025 3:27pm Ischemic cardiomyopathy January 29, 2025 3: 27pm Secondary pulmonary arterial hypertensio n January 29, 2025 3:27pm Cellulitis of right anterior lower leg M ay 2024 1:07pm Acute on chronic combined sy stolic (congestive) and diastolic (congestive) February 05, 2025 1:07pm Chief Complaint Admit Date HBO CLEARENCE October 26, 2024 8 :45am HBO CLEARENCE November 23, 2024 9:00am 6 M FU January 29, 2025 3:27pm CHF EXA, RIGHT LEG ULCER February 05, 2025 1:07pm CHF EXA, RIGHT LEG ULCER February 05, 2025 1:11pm CHF EXA, RIGHT LEG ULCER February 05, 2025 5:36pm CHF EXA, RIGHT LEG ULCER February 06, 2025 8:06am CHF EXA, RIGHT LEG ULCER February 06, 2025 8:26am CHF EXA, RIGHT LEG ULCER February 07, 2025 7:42am CHF EXA, RIGHT LEG ULCER February 07, 2025 9:00am CHF EXA, RIGHT LEG ULCER February 08, 2025 8:11am CHF EXA, RIGHT LEG ULCER February 08, 2025 11:33am CHF EXA, RIGHT LEG ULCER February 08, 2025 12:43pm CHF EXA, RIGHT LEG ULCER February 09, 2025 8:25am CHF EXA, RIGHT LEG ULCER February 09, 2025 10:15am CHF EXA, RIGHT LEG ULCER February 09, 2025 12:32pm CHF EXA, RIGHT LEG ULCER February 10, 2025 9:11am CHF EXA, RIGHT LEG ULCER February 10, 2025 9:21am CHF EXA, RIGHT LEG ULCER February 11, 2025 8:59am CHF EXA, RIGHT LEG ULCER February 11, 2025 9:45am CHF EXA, RIGHT LEG ULCER February 12, 2025 7:23am Reason for Visit Admit Date Debility October 26, 2024 8 :45am Diabetes mellitus with diabetic polyneur opathy October 26, 2024 8:45am PAD (peripheral artery disease) October 26, 2024 8:45am Type 2 diabetes mellitus with foot ulcer October 26, 2024 8:45am 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 heart failure) October 26, 2024 8:45am Non-pressure chronic ulcer o f other part of right foot with necrosis of muscle October 26, 2024 8:45am Obesity October 26, 2024 8 :45am 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 October 26, 2024 8:45am Debility November 23, 2024 9:00am Diabetes mellitus with diabetic polyneur opathy November 23, 2024 9:00am PAD (peripheral artery disease) November 23, 2024 9:00am Type 2 diabetes mellitus with foot ulcer November 23, 2024 9:00am 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 heart failure) November 23, 2024 9:00am Essential hypertension November 23 9:00am Obesity November 23, 2024 9:00am 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 November 23, 2024 9:00am SALGADO (dyspnea on exertion) January 29, 2025 3:27pm Atherosclerosis of coronary artery witho ut angina pectoris January 29, 2025 3:27pm 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 heart failure) January 29, 2025 3:27pm Essential hypertension January 29, 2025 3:2 7pm History of coronary artery stent placeme nt January 29, 2025 3:27pm Hyperlipidemia January 29, 2025 3:27pm Ischemic cardiomyopathy January 29, 2025 3: 27pm Secondary pulmonary arterial hypertensio n January 29, 2025 3:27pm Acute respiratory failure with hypoxia a nd hypercarbia February 05, 2025 1:07pm Cellulitis of right anterior lower leg M ay 2024 1:07pm Elevated troponin February 05, 2025 1:07p m Type 2 diabetes mellitus with foot ulcer February 05, 2025 1:07pm Urinary tract infection February 05, 2025 1 :07pm Acute on chronic combined sy stolic (congestive) and diastolic (congestive) February 05, 2025 1:07pm Atherosclerosis of coronary artery witho ut angina pectoris February 05, 2025 1:07pm Chronic kidney disease (CKD) February 05, 2 025 1:07pm Essential hypertension February 05, 2025 1: 07pm Hyperlipidemia February 05, 2025 1:07p m Secondary pulmonary arterial hypertensio n February 05, 2025 1:07pm ELIDA (acute kidney injury) February 05, 2025 1:07pm Family History Relationship Condition Age at Onset Recorded Date/T roman father Diabetes mellitus Unknown Cardiac disease Unknown Coronary artery disease Unknown mother Cardiac disease Unknown Advance Directives Advance Directive Response Recorded Date/ Time Advance Directives No September 28, 2013 10:29am Living Will No February 22, 2022 8 :54am Power of Baby Attendant No February 22, 2022 8:54am Advance Directive Response Recorded Date/ Time Advance Directives No September 28, 2013 10:29am Living Will No February 22, 2022 1 :32pm Power of Baby Attendant No February 22, 2022 1:32pm Advance Directive Response Recorded Date/ Time Living Will No February 22, 2022 1 :32pm Do you have a Healthcare Power of Baby Attendant? No February 22, 2022 1:32pm Living Will No September 27 1:36am Do you have a Healthcare Power of Baby Attendant? No September 27, 2024 1:36am Living Will No October 28 1:57am Do you have a Healthcare Power of Baby Attendant? No October 28, 2024 1:57am Advance Directives No September 28, 2013 10:29am Advance Directive Response Recorded Date/ Time Living Will No February 22, 2022 1 :32pm Do you have a Healthcare Power of Baby Attendant? No February 22, 2022 1:32pm Living Will No September 27 1:36am Do you have a Healthcare Power of Baby Attendant? No September 27, 2024 1:36am Living Will No October 28 1:57am Do you have a Healthcare Power of Baby Attendant? No October 28, 2024 1:57am Do you have a Healthcare Power of Baby Attendant? No February 05, 2025 9:52am Advance Directives No September 28, 2013 10:29am Advance Directive Response Recorded Date/ Time Living Will No February 22, 2022 1 :32pm Do you have a Healthcare Power of Baby Attendant? No February 22, 2022 1:32pm Living Will No September 27 1:36am Do you have a Healthcare Power of Baby Attendant? No September 27, 2024 1:36am Living Will No October 28 1:57am Do you have a Healthcare Power of Baby Attendant? No October 28, 2024 1:57am Do you have a Healthcare Power of Baby Attendant? No February 05, 2025 3:55pm Advance Directives No September 28, 2013 10:29am Date Activated Date Inactivated Comments 06/01/2025 3:30 PM 06/21/2025 8:30 PM Date Activated Date Inactivated Comments 06/01/2025 3:30 PM 06/21/2025 8:30 PM Date Activated Date Inactivated Comments 07/04/2025 6:46 PM Date Activated Date Inactivated Comments 06/01/2025 3:30 PM 06/21/2025 8:30 PM Date Activated Date Inactivated Comments 07/04/2025 6:46 PM 07/06/2025 7:39 PM Date Activated Date Inactivated Comments 06/01/2025 3:30 PM 06/21/2025 8:30 PM Reason for Referral Specialty Diagnoses / Procedures Referred By Thuan jama Referred To Contact Podiatry Diagnoses Diabetic ulcer of right midfoot associated with type 2 diabetes mellitus, unspecified ulcer stage (HCC) Procedures CONSULT TO PODIATRY OFFICE/OUTPATIENT [facility]3] 60 MINUTES Amado James MD [address] [place] [address] Referral ID Status Reason Start Date Expiration Date Visits Requested Visits Authorized [id number] Authorized PCP Requested Referral 05/06/2024 05/06/2025 1 1 Summary Purpose Additional Source Comments Goals (unrecognized section and content) Goals may be documented in a n alternate sectionGoals may be documented in an alternate sectionGoals may be documented in an alternate sectionGoals may be documented in an alternate sectionGoals may be documented in an alternate sectionGoals may be documented in an alternate section Source Comments (unrecognize d section and content) In the event this informatio n is protected by the Federal Confidentiality of Alcohol and Drug Abuse Patient Records regulations: The Federal rules restrict any use of the information to criminally investigate or prosecute any alcohol or drug abuse patient.[facility] the event this information is protected by the Federal Confidentiality of Alcohol and Drug Abuse Patient Records regulations: The Federal rules restrict any use of the information to criminally investigate or prosecute any alcohol or drug abuse patient.[facility] the event this information is protected by the Federal Confidentiality of Alcohol and Drug Abuse Patient Records regulations: The Federal rules restrict any use of the information to criminally investigate or prosecute any alcohol or drug abuse patient.[facility] the event this information is protected by the Federal Confidentiality of Alcohol and Drug Abuse Patient Records regulations: The Federal rules restrict any use of the information to criminally investigate or prosecute any alcohol or drug abuse patient.[facility] the event this information is protected by the Federal Confidentiality of Alcohol and Drug Abuse Patient Records regulations: The Federal rules restrict any use of the information to criminally investigate or prosecute any alcohol or drug abuse patient.[facility] HospitalIn the event this information is protected by the Federal Confidentiality of Alcohol and Drug Abuse Patient Records regulations: The Federal rules restrict any use of the information to criminally investigate or prosecute any alcohol or drug abuse patient.[facility] HospitalIn the event this information is protected by the Federal Confidentiality of Alcohol and Drug Abuse Patient Records regulations: The Federal rules restrict any use of the information to criminally investigate or prosecute any alcohol or drug abuse patient.[facility] HospitalIn the event this information is protected by the Federal Confidentiality of Alcohol and Drug Abuse Patient Records regulations: The Federal rules restrict any use of the information to criminally investigate or prosecute any alcohol or drug abuse patient.[facility] HospitalIn the event this information is protected by the Federal Confidentiality of Alcohol and Drug Abuse Patient Records regulations: The Federal rules restrict any use of the information to criminally investigate or prosecute any alcohol or drug abuse patient.[facility] HospitalIn the event this information is protected by the Federal Confidentiality of Alcohol and Drug Abuse Patient Records regulations: The Federal rules restrict any use of the information to criminally investigate or prosecute any alcohol or drug abuse patient.[facility] HospitalIn the event this information is protected by the Federal Confidentiality of Alcohol and Drug Abuse Patient Records regulations: The Federal rules restrict any use of the information to criminally investigate or prosecute any alcohol or drug abuse patient.[facility] HospitalIn the event this information is protected by the Federal Confidentiality of Alcohol and Drug Abuse Patient Records regulations: The Federal rules restrict any use of the information to criminally investigate or prosecute any alcohol or drug abuse patient.[facility] HospitalIn the event this information is protected by the Federal Confidentiality of Alcohol and Drug Abuse Patient Records regulations: The Federal rules restrict any use of the information to criminally investigate or prosecute any alcohol or drug abuse patient.[facility] HospitalIn the event this information is protected by the Federal Confidentiality of Alcohol and Drug Abuse Patient Records regulations: The Federal rules restrict any use of the information to criminally investigate or prosecute any alcohol or drug abuse patient.[facility] HospitalIn the event this information is protected by the Federal Confidentiality of Alcohol and Drug Abuse Patient Records regulations: The Federal rules restrict any use of the information to criminally investigate or prosecute any alcohol or drug abuse patient.[facility] HospitalIn the event this information is protected by the Federal Confidentiality of Alcohol and Drug Abuse Patient Records regulations: The Federal rules restrict any use of the information to criminally investigate or prosecute any alcohol or drug abuse patient.[facility] HospitalIn the event this information is protected by the Federal Confidentiality of Alcohol and Drug Abuse Patient Records regulations: The Federal rules restrict any use of the information to criminally investigate or prosecute any alcohol or drug abuse patient.[facility] HospitalIn the event this information is protected by the Federal Confidentiality of Alcohol and Drug Abuse Patient Records regulations: The Federal rules restrict any use of the information to criminally investigate or prosecute any alcohol or drug abuse patient.[facility] HospitalIn the event this information is protected by the Federal Confidentiality of Alcohol and Drug Abuse Patient Records regulations: The Federal rules restrict any use of the information to criminally investigate or prosecute any alcohol or drug abuse patient.[facility] HospitalIn the event this information is protected by the Federal Confidentiality of Alcohol and Drug Abuse Patient Records regulations: The Federal rules restrict any use of the information to criminally investigate or prosecute any alcohol or drug abuse patient.[facility] HospitalIn the event this information is protected by the Federal Confidentiality of Alcohol and Drug Abuse Patient Records regulations: The Federal rules restrict any use of the information to criminally investigate or prosecute any alcohol or drug abuse patient.[facility] HospitalIn the event this information is protected by the Federal Confidentiality of Alcohol and Drug Abuse Patient Records regulations: The Federal rules restrict any use of the information to criminally investigate or prosecute any alcohol or drug abuse patient.[facility] HospitalIn the event this information is protected by the Federal Confidentiality of Alcohol and Drug Abuse Patient Records regulations: The Federal rules restrict any use of the information to criminally investigate or prosecute any alcohol or drug abuse patient.[facility] HospitalIn the event this information is protected by the Federal Confidentiality of Alcohol and Drug Abuse Patient Records regulations: The Federal rules restrict any use of the information to criminally investigate or prosecute any alcohol or drug abuse patient.[facility] HospitalIn the event this information is protected by the Federal Confidentiality of Alcohol and Drug Abuse Patient Records regulations: The Federal rules restrict any use of the information to criminally investigate or prosecute any alcohol or drug abuse patient.[facility] HospitalIn the event this information is protected by the Federal Confidentiality of Alcohol and Drug Abuse Patient Records regulations: The Federal rules restrict any use of the information to criminally investigate or prosecute any alcohol or drug abuse patient.[facility] HospitalIn the event this information is protected by the Federal Confidentiality of Alcohol and Drug Abuse Patient Records regulations: The Federal rules restrict any use of the information to criminally investigate or prosecute any alcohol or drug abuse patient.[facility] HospitalIn the event this information is protected by the Federal Confidentiality of Alcohol and Drug Abuse Patient Records regulations: The Federal rules restrict any use of the information to criminally investigate or prosecute any alcohol or drug abuse patient.[facility] HospitalIn the event this information is protected by the Federal Confidentiality of Alcohol and Drug Abuse Patient Records regulations: The Federal rules restrict any use of the information to criminally investigate or prosecute any alcohol or drug abuse patient.[facility] HospitalIn the event this information is protected by the Federal Confidentiality of Alcohol and Drug Abuse Patient Records regulations: The Federal rules restrict any use of the information to criminally investigate or prosecute any alcohol or drug abuse patient.[facility] HospitalIn the event this information is protected by the Federal Confidentiality of Alcohol and Drug Abuse Patient Records regulations: The Federal rules restrict any use of the information to criminally investigate or prosecute any alcohol or drug abuse patient.[facility] HospitalIn the event this information is protected by the Federal Confidentiality of Alcohol and Drug Abuse Patient Records regulations: The Federal rules restrict any use of the information to criminally investigate or prosecute any alcohol or drug abuse patient.[facility] HospitalIn the event this information is protected by the Federal Confidentiality of Alcohol and Drug Abuse Patient Records regulations: The Federal rules restrict any use of the information to criminally investigate or prosecute any alcohol or drug abuse patient.[facility] HospitalIn the event this information is protected by the Federal Confidentiality of Alcohol and Drug Abuse Patient Records regulations: The Federal rules restrict any use of the information to criminally investigate or prosecute any alcohol or drug abuse patient.[facility] HospitalIn the event this information is protected by the Federal Confidentiality of Alcohol and Drug Abuse Patient Records regulations: The Federal rules restrict any use of the information to criminally investigate or prosecute any alcohol or drug abuse patient.[facility] HospitalIn the event this information is protected by the Federal Confidentiality of Alcohol and Drug Abuse Patient Records regulations: The Federal rules restrict any use of the information to criminally investigate or prosecute any alcohol or drug abuse patient.[facility] HospitalIn the event this information is protected by the Federal Confidentiality of Alcohol and Drug Abuse Patient Records regulations: The Federal rules restrict any use of the information to criminally investigate or prosecute any alcohol or drug abuse patient.[facility] HospitalIn the event this information is protected by the Federal Confidentiality of Alcohol and Drug Abuse Patient Records regulations: The Federal rules restrict any use of the information to criminally investigate or prosecute any alcohol or drug abuse patient.[facility] HospitalIn the event this information is protected by the Federal Confidentiality of Alcohol and Drug Abuse Patient Records regulations: The Federal rules restrict any use of the information to criminally investigate or prosecute any alcohol or drug abuse patient.[facility] HospitalIn the event this information is protected by the Federal Confidentiality of Alcohol and Drug Abuse Patient Records regulations: The Federal rules restrict any use of the information to criminally investigate or prosecute any alcohol or drug abuse patient.[facility] HospitalIn the event this information is protected by the Federal Confidentiality of Alcohol and Drug Abuse Patient Records regulations: The Federal rules restrict any use of the information to criminally investigate or prosecute any alcohol or drug abuse patient.[facility] HospitalIn the event this information is protected by the Federal Confidentiality of Alcohol and Drug Abuse Patient Records regulations: The Federal rules restrict any use of the information to criminally investigate or prosecute any alcohol or drug abuse patient.[facility] HospitalIn the event this information is protected by the Federal Confidentiality of Alcohol and Drug Abuse Patient Records regulations: The Federal rules restrict any use of the information to criminally investigate or prosecute any alcohol or drug abuse patient.[facility] HospitalIn the event this information is protected by the Federal Confidentiality of Alcohol and Drug Abuse Patient Records regulations: The Federal rules restrict any use of the information to criminally investigate or prosecute any alcohol or drug abuse patient.[facility] HospitalIn the event this information is protected by the Federal Confidentiality of Alcohol and Drug Abuse Patient Records regulations: The Federal rules restrict any use of the information to criminally investigate or prosecute any alcohol or drug abuse patient.[facility] HospitalIn the event this information is protected by the Federal Confidentiality of Alcohol and Drug Abuse Patient Records regulations: The Federal rules restrict any use of the information to criminally investigate or prosecute any alcohol or drug abuse patient.[facility] HospitalIn the event this information is protected by the Federal Confidentiality of Alcohol and Drug Abuse Patient Records regulations: The Federal rules restrict any use of the information to criminally investigate or prosecute any alcohol or drug abuse patient.[facility] HospitalIn the event this information is protected by the Federal Confidentiality of Alcohol and Drug Abuse Patient Records regulations: The Federal rules restrict any use of the information to criminally investigate or prosecute any alcohol or drug abuse patient.[facility] HospitalIn the event this information is protected by the Federal Confidentiality of Alcohol and Drug Abuse Patient Records regulations: The Federal rules restrict any use of the information to criminally investigate or prosecute any alcohol or drug abuse patient.[facility] HospitalIn the event this information is protected by the Federal Confidentiality of Alcohol and Drug Abuse Patient Records regulations: The Federal rules restrict any use of the information to criminally investigate or prosecute any alcohol or drug abuse patient.[facility] HospitalIn the event this information is protected by the Federal Confidentiality of Alcohol and Drug Abuse Patient Records regulations: The Federal rules restrict any use of the information to criminally investigate or prosecute any alcohol or drug abuse patient.[facility] HospitalIn the event this information is protected by the Federal Confidentiality of Alcohol and Drug Abuse Patient Records regulations: The Federal rules restrict any use of the information to criminally investigate or prosecute any alcohol or drug abuse patient.[facility] HospitalIn the event this information is protected by the Federal Confidentiality of Alcohol and Drug Abuse Patient Records regulations: The Federal rules restrict any use of the information to criminally investigate or prosecute any alcohol or drug abuse patient.[facility] HospitalIn the event this information is protected by the Federal Confidentiality of Alcohol and Drug Abuse Patient Records regulations: The Federal rules restrict any use of the information to criminally investigate or prosecute any alcohol or drug abuse patient.[facility] Care Teams (unrecognized sec tion and content) Wide Load Escort Relationship Specialty Start Date End Date Amado James MD [address] [facility] [address] PCP - General 04/25/09 Wide Load Escort Relationship Specialty Start Date End Date Amado James MD [address] [place] [address], [place] [address] PCP - General 04/25/09 Wide Load Escort Relationship Specialty Start Date End Date Amado James MD [address] [place] [address] [place] [address] PCP - General 04/25/09 Wide Load Escort Relationship Specialty Start Date End Date Amado James MD [address] [place] [address] [place] [address] PCP - General 04/25/09 Wide Load Escort Relationship Specialty Start Date End Date Amado James MD [address] [place] [address] [place] [address] PCP - General 04/25/09 Wide Load Escort Relationship Specialty Start Date End Date Amado James MD [address] [place] [address] [place] [address] PCP - General 04/25/09 Wide Load Escort Relationship Specialty Start Date End Date Amado James MD [address] [place] [address], [place] [address] PCP - General 04/25/09 Wide Load Escort Relationship Specialty Start Date End Date Amado James MD [address] [place] [address], [place] [address] PCP - General 04/25/09 Wide Load Escort Relationship Specialty Start Date End Date Amado James MD [address] [place] [address] PCP - General 04/25/09 Wide Load Escort Relationship Specialty Start Date End Date Amado James MD [address] [place] [address] PCP - General 04/25/09 Wide Load Escort Relationship Specialty Start Date End Date Amado James MD [address] [place] [address] PCP - General 04/25/09 Wide Load Escort Relationship Specialty Start Date End Date Amado James MD [address] [place] [address] PCP - General 04/25/09 Wide Load Escort Relationship Specialty Start Date End Date Amado James MD [address] [place] [address] PCP - General 04/25/09 Team Status: Active Member Role Status Dates Dr. Amado James MD Family Provider Active Dr. Amado James MD Primary Care Provider Active Team Status: Inactive Member Role Status Dates Dr. Amado James MD Primary Care Provider, Referr ing Provider Active Carmela Funk FULL STACK DEVELOPER, FULL STACK DEVELOPER-C Attending Provider Active Team Status: Inactive Member Role Status Dates Dr. Amado James MD Primary Care Provider Active Carmela Funk FULL STACK DEVELOPER, FULL STACK DEVELOPER-C Attending Provider, Referring P andrew Active Wide Load Escort Relationship Specialty Start Date End Date Amado James MD [address] [place] [address] PCP - General 04/25/09 Wide Load Escort Relationship Specialty Start Date End Date Amado James MD [address] [place] [address] PCP - General 04/25/09 Wide Load Escort Relationship Specialty Start Date End Date Amado James MD [address] [place] [address] PCP - General 04/25/09 Wide Load Escort Relationship Specialty Start Date End Date Amado James MD [address] [place] [address] PCP - General 04/25/09 Wide Load Escort Relationship Specialty Start Date End Date Amado James MD [address] [place] [address] PCP - General 04/25/09 Wide Load Escort Relationship Specialty Start Date End Date Amado James MD [address] [place] [address] PCP - General 04/25/09 Wide Load Escort Relationship Specialty Start Date End Date Amado James MD [address] [place] [address] PCP - General 04/25/09 Wide Load Escort Relationship Specialty Start Date End Date Amado James MD [address] [place] [address] PCP - General 04/25/09 Wide Load Escort Relationship Specialty Start Date End Date Amado James MD [address] [place] [address] PCP - General 04/25/09 Wide Load Escort Relationship Specialty Start Date End Date Amado James MD [address] [place] [address] PCP - General 04/25/09 Wide Load Escort Relationship Specialty Start Date End Date Amado James MD [address] [place], [place] [address] PCP - General 04/25/09 Wide Load Escort Relationship Specialty Start Date End Date Amado James MD [address] [place], [place] [address] PCP - General 04/25/09 Wide Load Escort Relationship Specialty Start Date End Date Amado James MD [address] [place] [address] PCP - General 04/25/09 Wide Load Escort Relationship Specialty Start Date End Date Amado James MD [address] [place] [address] PCP - General 04/25/09 Wide Load Escort Relationship Specialty Start Date End Date Amado James MD [address] [place] [address] PCP - General 04/25/09 Wide Load Escort Relationship Specialty Start Date End Date Amado James MD [address] [place] [address] PCP - General 04/25/09 Rufina Soares APRN.CNP [address] [place] [address] Computer Animator [facility] 09/03/24 Wide Load Escort Relationship Specialty Start Date End Date Amado James MD [address] [place] [address] PCP - General 04/25/09 Rufina Soares APRN.METALLURGIST HELPER [address] [facility] [address] [facility] 09/03/24 Wide Load Escort Relationship Specialty Start Date End Date Amado James MD [address] [facility] [place] [address] PCP - General 04/25/09 Rufina Soares APRN.METALLURGIST HELPER [address] [place] [address] [facility] 09/03/24 Maciel Busby APRN.METALLURGIST HELPER [address] [place] [address] [facility] 09/12/24 Wide Load Escort Relationship Specialty Start Date End Date Amado James MD [address] [place] [address] PCP - General 04/25/09 Rufina Soares APRN.METALLURGIST HELPER [address] [place] [address] [facility] 09/03/24 Maciel Busby APRN.METALLURGIST HELPER [address] [facility] [place] [address] [facility] 09/12/24 Wide Load Escort Relationship Specialty Start Date End Date Amado James MD [address] [facility] [place] [address] PCP - General 04/25/09 Rufina Soares APRN.METALLURGIST HELPER [address] [facility] [place] [address] Computer Animator [facility] 09/03/24 Maciel Busby APRN.METALLURGIST HELPER [address] [facility] [place] [address] Computer Animator [facility] 09/12/24 Wide Load Escort Relationship Specialty Start Date End Date Amado James MD [address] [facility] [place] [address] PCP - General 04/25/09 Rufina Soares APRN.METALLURGIST HELPER [address] [facility] [place] [address] Computer Animator [facility] 09/03/24 Maciel Busby APRN.METALLURGIST HELPER [address] [facility] [place] [address] Computer Animator [facility] 09/12/24 Wide Load Escort Relationship Specialty Start Date End Date Amado James MD [address] [facility] [place] [address] PCP - General 04/25/09 Rufina Soares APRN.METALLURGIST HELPER [address] [facility] [place] [address] Computer Animator [facility] 09/03/24 Maciel Busby APRN.METALLURGIST HELPER [address] [facility] [place] [address] Computer Animator [facility] 09/12/24 Wide Load Escort Relationship Specialty Start Date End Date Amado James MD [address] [facility] [place] [address] PCP - General 04/25/09 Rufina Soares, GROUNDMAN/LINEMAN.METALLURGIST HELPER [address] [place] [address] Computer Animator Family [facility] 09/03/24 Maciel Busby, GROUNDMAN/LINEMAN.METALLURGIST HELPER [address] [place] [address] Computer Animator [facility] 09/12/24 Team Status: Active Member Role Status Dates Dr. Amado James MD Primary Care Provider Active Team Status: Inactive Member Role Status Dates Dr. Amado James MD Primary Care Provider Active Start: October 26, 2024 End: October 27, 2024 Dr. Leyda Erwin DPM Attending Provider Active Start: October 26, 2024 End: October 27, 2024 Dr. Leyda Erwin DPM Referring Provider Active Start: October 26, 2024 End: October 27, 2024 Team Status: Inactive Member Role Status Dates Dr. Amado James MD Primary Care Provider Active Start: November 23, 2024 End: November 24, 2024 Dr. Leyda Erwin DPM Attending Provider Active Start: November 23, 2024 End: November 24, 2024 Dr. Leyda Erwin DPM Referring Provider Active Start: November 23, 2024 End: November 24, 2024 Team Status: Inactive Member Role Status Dates Dr. Amado James MD Primary Care Provider Active Start: January 29, 2025 End: January 29, 2025 Dr. Amado James MD Referring Provider Active Start: January 29, 2025 End: January 29, 2025 ORION Curtis Attending Provider Active St art: January 29, 2025 End: January 29, 2025 Team Status: Inactive Member Role Status Dates Dr. Amado James MD Primary Care Provider Active Start: January 29, 2025 End: January 29, 2025 ORION Curtis Attending Provider Active St art: January 29, 2025 End: January 29, 2025 Janusz Demiter , [place] Referring Provider Active St art: January 29, 2025 End: January 29, 2025 Team Status: Active Member Role Status Dates Dr. Amado James MD Primary Care Provider Active Start: February 05, 2025 Dr. Eduardo Corona DO Emergency Provider Active Start: February 05, 2025 Dr. Zachery Gomez MD Admit Provider Active Sta rt: February 05, 2025 Dr. Zachery Gomez MD Attending Provider Active Start: February 05, 2025 Team Status: Active Member Role Status Dates Dr. Amado James MD Primary Care Provider Active Start: February 05, 2025 Dr. Eduardo Corona DO Emergency Provider Active Start: February 05, 2025 Dr. Zachery Gomez MD Admit Provider Active Sta rt: February 05, 2025 Dr. Zachery Gomez MD Attending Provider Active Start: February 05, 2025 Dr. Zachery Gomez MD Other Provider Active Sta rt: February 05, 2025 Team Status: Active Member Role Status Dates Dr. Amado James MD Primary Care Provider Active Start: February 05, 2025 Dr. Eduardo Corona DO Emergency Provider Active Start: February 05, 2025 Dr. Zachery Gomez MD Admit Provider Active Sta rt: February 05, 2025 Dr. Zachery Gomez MD Other Provider Active Sta rt: February 05, 2025 Dr. Leyda Cardona MD Other Provider Active St art: February 05, 2025 Dr. Roosevelt Moss MD Other Provider Active Start: February 05, 2025 Dr. James Whelan MD Other Provider Active Start: February 05, 2025 Dr. Vinayak De Los Santos MD Other Provider Active Start: February 05, 2025 Dr. Yaw Thompson MD Other Provider Active Star t: February 05, 2025 Dr. Jose Pool DO Other Provider Active Start : February 05, 2025 Dr. Oscar Weinstein MD Other Provider Active Sta rt: February 05, 2025 Dr. Noe Salcido MD Other Provider Active St art: February 05, 2025 Dr. Joni Wood MD Other Provider Active S tart: February 05, 2025 Dr. Lizbeth Avery MD Other Provider Active Start: February 05, 2025 Dr. Red Bustamante MD Other Provider Active Start : February 05, 2025 Dr. Enrique Neff MD Other Provider Active Start: February 05, 2025 Dr. Armando Rangel MD Other Provider Active Start : February 05, 2025 Dr. Lina Fernando MD Other Provider Active Star t: February 05, 2025 Dr. Jessa Solorzano MD Other Provider Active Sta rt: February 05, 2025 Dr. Nilsa Hilton MD Other Provider Active Sta rt: February 05, 2025 Dr. Ernesto Tate MD Other Provider Active Star t: February 05, 2025 Dr. Ab Singh MD Other Provider Active St art: February 05, 2025 Dr. Dwight Hines MD Other Provider Active Star t: February 05, 2025 Dr. Thad Cohen DO Other Provider Active St art: February 05, 2025 Dr. Tg Waller MD Other Provider Active Start: February 05, 2025 Dr. Jam De La Rosa MD Other Provider Active St art: February 05, 2025 Dr. Mike Martinez DO Other Provider Active Start: February 05, 2025 Dr. Jeromy Cleary MD Other Provider Active Star t: February 05, 2025 Dr. Anthony Dillard MD Other Provider Active Sta rt: February 05, 2025 Dr. Herbert Cardona MD Attending Provider Active Start: February 05, 2025 Team Status: Active Member Role Status Dates Dr. Amado James MD Primary Care Provider Active Start: February 05, 2025 Dr. Eduardo Corona DO Emergency Provider Active Start: February 05, 2025 Dr. Zachery Gomez MD Admit Provider Active Sta rt: February 05, 2025 Dr. Zachery Gomez MD Other Provider Active Sta rt: February 05, 2025 Dr. Leyda Cardona MD Attending Provider Active Start: February 05, 2025 Dr. Leyda Cardona MD Other Provider Active St art: February 05, 2025 Dr. Roosevelt Moss MD Other Provider Active Start: February 05, 2025 Team Status: Active Member Role Status Dates Dr. Amado James MD Primary Care Provider Active Start: February 06, 2025 Dr. Eduardo Corona DO Emergency Provider Active Start: February 06, 2025 Dr. Zachery Gomez MD Admit Provider Active Sta rt: February 06, 2025 Dr. Zachery Gomez MD Other Provider Active Sta rt: February 06, 2025 Dr. Leyda Cardona MD Attending Provider Active Start: February 06, 2025 Dr. Leyda Cardona MD Other Provider Active St art: February 06, 2025 Dr. Roosevelt Moss MD Other Provider Active Start: February 06, 2025 Team Status: Active Member Role Status Dates Dr. Amado James MD Primary Care Provider Active Start: February 06, 2025 Dr. Eduardo Corona , Emergency Provider Active Start: February 06, 2025 Dr. Zachery Gomez MD Admit Provider Active Sta rt: February 06, 2025 Dr. Zachery Gomez MD Attending Provider Active Start: February 06, 2025 Dr. Zachery Gomez MD Other Provider Active Sta rt: February 06, 2025 Dr. Leyda Cardona MD Other Provider Active St art: February 06, 2025 Dr. Roosevelt Moss MD Other Provider Active Start: February 06, 2025 Team Status: Active Member Role Status Dates Dr. Amado James MD Primary Care Provider Active Start: February 06, 2025 Dr. Harry Stallings MD Attending Provider Active S tart: February 06, 2025 Team Status: Active Member Role Status Dates Dr. Amado James MD Primary Care Provider Active Start: February 07, 2025 Dr. Eduardo Corona DO Emergency Provider Active Start: February 07, 2025 Dr. Zachery Gomez MD Admit Provider Active Sta rt: February 07, 2025 Dr. Zachery Gomez MD Attending Provider Active Start: February 07, 2025 Dr. Zachery Gomez MD Other Provider Active Sta rt: February 07, 2025 Dr. Leyda Cardona MD Other Provider Active St art: February 07, 2025 Dr. Roosevelt Moss MD Other Provider Active Start: February 07, 2025 Team Status: Active Member Role Status Dates Dr. Amado James MD Primary Care Provider Active Start: February 07, 2025 Dr. Eduardo Corona DO Emergency Provider Active Start: February 07, 2025 Dr. Zachery Gomez MD Admit Provider Active Sta rt: February 07, 2025 Dr. Zachery Gomez MD Other Provider Active Sta rt: February 07, 2025 Dr. Leyda Cardona MD Attending Provider Active Start: February 07, 2025 Dr. Leyda Cardona MD Other Provider Active St art: February 07, 2025 Dr. Roosevelt Moss MD Other Provider Active Start: February 07, 2025 Team Status: Active Member Role Status Dates Dr. Amado James MD Primary Care Provider Active Start: February 08, 2025 Dr. Eduardo Corona , Emergency Provider Active Start: February 08, 2025 Dr. Zachery Gomez MD Admit Provider Active Sta rt: February 08, 2025 Dr. Zachery Gomez MD Attending Provider Active Start: February 08, 2025 Dr. Zachery Gomez MD Other Provider Active Sta rt: February 08, 2025 Dr. Leyda Cardona MD Other Provider Active St art: February 08, 2025 Dr. Roosevelt Moss MD Other Provider Active Start: February 08, 2025 Team Status: Active Member Role Status Dates Dr. Amado James MD Primary Care Provider Active Start: February 08, 2025 Dr. Eduardo Corona DO Emergency Provider Active Start: February 08, 2025 Dr. Zachery Gomez MD Admit Provider Active Sta rt: February 08, 2025 Dr. Zachery Gomez MD Other Provider Active Sta rt: February 08, 2025 Dr. Leyda Cardona MD Other Provider Active St art: February 08, 2025 Dr. Roosevelt Moss MD Other Provider Active Start: February 08, 2025 Dr. Jose Pool , Attending Provider Active S tart: February 08, 2025 Team Status: Active Member Role Status Dates Dr. Amado James MD Primary Care Provider Active Start: February 08, 2025 Dr. Eduardo Corona DO Emergency Provider Active Start: February 08, 2025 Dr. Zachery Gomez MD Admit Provider Active Sta rt: February 08, 2025 Dr. Zachery Gomez MD Other Provider Active Sta rt: February 08, 2025 Dr. Leyda Cardona MD Other Provider Active St art: February 08, 2025 Dr. Roosevelt Moss MD Other Provider Active Start: February 08, 2025 Dr. Papito Gilbert MD Attending Provider Activ e Start: February 08, 2025 Team Status: Active Member Role Status Dates Dr. Amado James MD Primary Care Provider Active Start: February 09, 2025 Dr. Eduardo Corona , Emergency Provider Active Start: February 09, 2025 Dr. Zachery Gomez MD Admit Provider Active Sta rt: February 09, 2025 Dr. Zachery Gomez MD Other Provider Active Sta rt: February 09, 2025 Dr. Leyda Cardona MD Other Provider Active St art: February 09, 2025 Dr. Roosevelt Moss MD Other Provider Active Start: February 09, 2025 Dr. James Whelan MD Other Provider Active Start: February 09, 2025 Dr. Vinayak De Los Santos MD Other Provider Active Start: February 09, 2025 Dr. Yaw Thompson MD Other Provider Active Star t: February 09, 2025 Dr. Jose Pool DO Attending Provider Active S tart: February 09, 2025 Dr. Jose Pool DO Other Provider Active Start : February 09, 2025 Dr. Oscar Weinstein MD Other Provider Active Sta rt: February 09, 2025 Dr. Noe Salcido MD Other Provider Active St art: February 09, 2025 Dr. Joni Wood MD Other Provider Active S tart: February 09, 2025 Dr. Lizbeth Avery MD Other Provider Active Start: February 09, 2025 Dr. Red Bustamante MD Other Provider Active Start : February 09, 2025 Dr. Enrique Neff MD Other Provider Active Start: February 09, 2025 Dr. Armando Rangel MD Other Provider Active Start : February 09, 2025 Dr. Lina Fernando MD Other Provider Active Star t: February 09, 2025 Dr. Jessa Solorzano MD Other Provider Active Sta rt: February 09, 2025 Dr. Nisla Hilton MD Other Provider Active Sta rt: February 09, 2025 Dr. Ernesto Tate MD Other Provider Active Star t: February 09, 2025 Dr. Ab Singh MD Other Provider Active St art: February 09, 2025 Dr. Dwight Hines MD Other Provider Active Star t: February 09, 2025 Dr. Thad Cohen DO Other Provider Active St art: February 09, 2025 Dr. Tg Waller MD Other Provider Active Start: February 09, 2025 Dr. Jam De La Rosa MD Other Provider Active St art: February 09, 2025 Dr. Mike Martinez DO Other Provider Active Start: February 09, 2025 Dr. Jeromy Cleary MD Other Provider Active Star t: February 09, 2025 Dr. Anthony Dillard MD Other Provider Active Sta rt: February 09, 2025 Dr. Herbert Cardona MD Other Provider Active Start: February 09, 2025 Team Status: Active Member Role Status Dates Dr. Amado James MD Primary Care Provider Active Start: February 09, 2025 Dr. Eduardo Corona , Emergency Provider Active Start: February 09, 2025 Dr. Zachery Gomez MD Admit Provider Active Sta rt: February 09, 2025 Dr. Zachery Gomez MD Other Provider Active Sta rt: February 09, 2025 Dr. Leyda Cardona MD Other Provider Active St art: February 09, 2025 Dr. Roosevelt Moss MD Other Provider Active Start: February 09, 2025 Dr. James Whelan MD Other Provider Active Start: February 09, 2025 Dr. Vinayak De Los Santos MD Other Provider Active Start: February 09, 2025 Dr. Yaw Thompson MD Other Provider Active Star t: February 09, 2025 Dr. Jose Pool DO Other Provider Active Start : February 09, 2025 Dr. Oscar Weinstein MD Other Provider Active Sta rt: February 09, 2025 Dr. Noe Salcido MD Other Provider Active St art: February 09, 2025 Dr. Joni Wood MD Other Provider Active S tart: February 09, 2025 Dr. Lizbeth Avery MD Other Provider Active Start: February 09, 2025 Dr. Red Bustamante MD Other Provider Active Start : February 09, 2025 Dr. Enrique Neff MD Other Provider Active Start: February 09, 2025 Dr. Armando Rangel MD Other Provider Active Start : February 09, 2025 Dr. Lina Fernando MD Other Provider Active Star t: February 09, 2025 Dr. Jessa Solorzano MD Other Provider Active Sta rt: February 09, 2025 Dr. Nilsa Hilton MD Other Provider Active Sta rt: February 09, 2025 Dr. Ernesto Tate MD Other Provider Active Star t: February 09, 2025 Dr. Ab Singh MD Other Provider Active St art: February 09, 2025 Dr. Dwight Hines MD Other Provider Active Star t: February 09, 2025 Dr. Thad Cohen , DO Other Provider Active St art: February 09, 2025 Dr. Tg Waller MD Other Provider Active Start: February 09, 2025 Dr. Jam De La Rosa MD Other Provider Active St art: February 09, 2025 Dr. Mike Martinez , Other Provider Active Start: February 09, 2025 Dr. Jeromy Cleary MD Other Provider Active Star t: February 09, 2025 Dr. Anthony Dillard MD Other Provider Active Sta rt: February 09, 2025 Dr. Herbert Cardona MD Attending Provider Active Start: February 09, 2025 Dr. Herbert Cardona MD Other Provider Active Start: February 09, 2025 Team Status: Active Member Role Status Dates Dr. Amado James MD Primary Care Provider Active Start: February 09, 2025 Dr. Eduardo Corona , Emergency Provider Active Start: February 09, 2025 Dr. Zachery Gomez MD Admit Provider Active Sta rt: February 09, 2025 Dr. Zachery Gomez MD Other Provider Active Sta rt: February 09, 2025 Dr. Leyda Cardona MD Other Provider Active St art: February 09, 2025 Dr. Roosevelt Moss MD Other Provider Active Start: February 09, 2025 Dr. James Whelan MD Other Provider Active Start: February 09, 2025 Dr. Vinayak De Los Santos MD Other Provider Active Start: February 09, 2025 Dr. Yaw Thompson MD Other Provider Active Star t: February 09, 2025 Dr. Jose Pool , Other Provider Active Start : February 09, 2025 Dr. Oscar Weinstein MD Other Provider Active Sta rt: February 09, 2025 Dr. Noe Salcido MD Other Provider Active St art: February 09, 2025 Dr. Joni Wood MD Other Provider Active S tart: February 09, 2025 Dr. Lizbeth Avery MD Other Provider Active Start: February 09, 2025 Dr. Red Bustamante MD Other Provider Active Start : February 09, 2025 Dr. Enrique Neff MD Other Provider Active Start: February 09, 2025 Dr. Armando Rangel MD Other Provider Active Start : February 09, 2025 Dr. Lina Fernando MD Other Provider Active Star t: February 09, 2025 Dr. Jessa Solorzano MD Other Provider Active Sta rt: February 09, 2025 Dr. Nilsa Hilton MD Other Provider Active Sta rt: February 09, 2025 Dr. Ernesto Tate MD Other Provider Active Star t: February 09, 2025 Dr. Ab Singh MD Other Provider Active St art: February 09, 2025 Dr. Dwight Hines MD Other Provider Active Star t: February 09, 2025 Dr. Thad Cohen , Other Provider Active St art: February 09, 2025 Dr. Tg Waller MD Other Provider Active Start: February 09, 2025 Dr. Jam De La Rosa MD Other Provider Active St art: February 09, 2025 Dr. Mike Martinez DO Other Provider Active Start: February 09, 2025 Dr. Jeromy Cleary MD Other Provider Active Star t: February 09, 2025 Dr. Anthony Dillard MD Other Provider Active Sta rt: February 09, 2025 Dr. Herbert Cardona MD Other Provider Active Start: February 09, 2025 Dr. Harry Stallings MD Attending Provider Active S tart: February 09, 2025 Team Status: Active Member Role Status Dates Dr. Amado James MD Primary Care Provider Active Start: February 10, 2025 Dr. Eduardo Corona , Emergency Provider Active Start: February 10, 2025 Dr. Zachery Gomez MD Admit Provider Active Sta rt: February 10, 2025 Dr. Zachery Gomez MD Other Provider Active Sta rt: February 10, 2025 Dr. Leyda Cardona MD Other Provider Active St art: February 10, 2025 Dr. Roosevelt Moss MD Other Provider Active Start: February 10, 2025 Dr. James Whelan MD Other Provider Active Start: February 10, 2025 Dr. Vinayak De Los Santos MD Other Provider Active Start: February 10, 2025 Dr. Yaw Thompson MD Other Provider Active Star t: February 10, 2025 Dr. Jose Pool , Other Provider Active Start : February 10, 2025 Dr. Oscar Weinstein MD Other Provider Active Sta rt: February 10, 2025 Dr. Noe Salcido MD Other Provider Active St art: February 10, 2025 Dr. Joni Wood MD Other Provider Active S tart: February 10, 2025 Dr. Lizbeth Avery MD Other Provider Active Start: February 10, 2025 Dr. Red Bustamante MD Other Provider Active Start : February 10, 2025 Dr. Enrique Neff MD Other Provider Active Start: February 10, 2025 Dr. Armando Rangel MD Other Provider Active Start : February 10, 2025 Dr. Lina Fernando MD Other Provider Active Star t: February 10, 2025 Dr. Jessa Solorzano MD Other Provider Active Sta rt: February 10, 2025 Dr. Nilsa Hilton MD Other Provider Active Sta rt: February 10, 2025 Dr. Ernesto Tate MD Other Provider Active Star t: February 10, 2025 Dr. Ab Singh MD Other Provider Active St art: February 10, 2025 Dr. Dwight Hines MD Other Provider Active Star t: February 10, 2025 Dr. Thad Cohen , Other Provider Active St art: February 10, 2025 Dr. Tg Waller MD Other Provider Active Start: February 10, 2025 Dr. Jam De La Rosa MD Other Provider Active St art: February 10, 2025 Dr. Mike Martinez , Other Provider Active Start: February 10, 2025 Dr. Jeromy Cleary MD Other Provider Active Star t: February 10, 2025 Dr. Anthony Dillard MD Other Provider Active Sta rt: February 10, 2025 Dr. Herbert Cardona MD Attending Provider Active Start: February 10, 2025 Dr. Herbert Cardona MD Other Provider Active Start: February 10, 2025 Team Status: Active Member Role Status Dates Dr. Amado James MD Primary Care Provider Active Start: February 10, 2025 Dr. Eduardo Corona DO Emergency Provider Active Start: February 10, 2025 Dr. Zachery Gomez MD Admit Provider Active Sta rt: February 10, 2025 Dr. Zachery Gomez MD Other Provider Active Sta rt: February 10, 2025 Dr. Leyda Cardona MD Other Provider Active St art: February 10, 2025 Dr. Roosevelt Moss MD Other Provider Active Start: February 10, 2025 Dr. James Whelan MD Other Provider Active Start: February 10, 2025 Dr. Vinayak De Los Santos MD Other Provider Active Start: February 10, 2025 Dr. Yaw Thompson MD Other Provider Active Star t: February 10, 2025 Dr. Jose Pool DO Other Provider Active Start : February 10, 2025 Dr. Oscar Weinstein MD Other Provider Active Sta rt: February 10, 2025 Dr. Noe Salcido MD Other Provider Active St art: February 10, 2025 Dr. Joni Wood MD Other Provider Active S tart: February 10, 2025 Dr. Lizbeth Avery MD Other Provider Active Start: February 10, 2025 Dr. Red Bustamante MD Other Provider Active Start : February 10, 2025 Dr. Enrique Neff MD Other Provider Active Start: February 10, 2025 Dr. Armando Rangel MD Other Provider Active Start : February 10, 2025 Dr. Lina Fernando MD Other Provider Active Star t: February 10, 2025 Dr. Jessa Solorzano MD Other Provider Active Sta rt: February 10, 2025 Dr. Nilsa Hilton MD Other Provider Active Sta rt: February 10, 2025 Dr. Ernesto Tate MD Other Provider Active Star t: February 10, 2025 Dr. Ab Singh MD Other Provider Active St art: February 10, 2025 Dr. Dwight Hines MD Other Provider Active Star t: February 10, 2025 Dr. Thad Cohen , DO Other Provider Active St art: February 10, 2025 Dr. Tg Waller MD Other Provider Active Start: February 10, 2025 Dr. Jam De La Rosa MD Other Provider Active St art: February 10, 2025 Dr. Mike Martinez , Other Provider Active Start: February 10, 2025 Dr. Jeromy Cleary MD Other Provider Active Star t: February 10, 2025 Dr. Anthony Dillard MD Other Provider Active Sta rt: February 10, 2025 Dr. Herbert Cardona MD Other Provider Active Start: February 10, 2025 Dr. Harry Stallings MD Attending Provider Active S tart: February 10, 2025 Team Status: Active Member Role Status Dates Dr. Amado James MD Primary Care Provider Active Start: February 11, 2025 Dr. Eduardo Corona , Emergency Provider Active Start: February 11, 2025 Dr. Zachery Gomez MD Admit Provider Active Sta rt: February 11, 2025 Dr. Zachery Gomez MD Other Provider Active Sta rt: February 11, 2025 Dr. Leyda Cardona MD Other Provider Active St art: February 11, 2025 Dr. Roosevelt Moss MD Other Provider Active Start: February 11, 2025 Dr. James Whelan MD Other Provider Active Start: February 11, 2025 Dr. Vinayak De Los Santos MD Other Provider Active Start: February 11, 2025 Dr. Yaw Thompson MD Other Provider Active Star t: February 11, 2025 Dr. Jose Pool , Other Provider Active Start : February 11, 2025 Dr. Oscar Weinstein MD Other Provider Active Sta rt: February 11, 2025 Dr. Noe Salcido MD Other Provider Active St art: February 11, 2025 Dr. Joni Wood MD Other Provider Active S tart: February 11, 2025 Dr. Lizbeth Avery MD Other Provider Active Start: February 11, 2025 Dr. Red Bustamante MD Other Provider Active Start : February 11, 2025 Dr. Enrique Neff MD Other Provider Active Start: February 11, 2025 Dr. Armando Rangel MD Other Provider Active Start : February 11, 2025 Dr. Lina eFrnando MD Other Provider Active Star t: February 11, 2025 Dr. Jessa Solorzano MD Other Provider Active Sta rt: February 11, 2025 Dr. Nilsa Hilton MD Other Provider Active Sta rt: February 11, 2025 Dr. Ernesto Tate MD Other Provider Active Star t: February 11, 2025 Dr. Ab Singh MD Other Provider Active St art: February 11, 2025 Dr. Dwight Hines MD Other Provider Active Star t: February 11, 2025 Dr. Thad Cohen DO Other Provider Active St art: February 11, 2025 Dr. Tg Waller MD Other Provider Active Start: February 11, 2025 Dr. Jam De La Rosa MD Other Provider Active St art: February 11, 2025 Dr. Mike Martinez DO Other Provider Active Start: February 11, 2025 Dr. Jeromy Cleary MD Other Provider Active Star t: February 11, 2025 Dr. Anthony Dillard MD Other Provider Active Sta rt: February 11, 2025 Dr. Herbert Cardona MD Attending Provider Active Start: February 11, 2025 Dr. Herbert Cardona MD Other Provider Active Start: February 11, 2025 Team Status: Active Member Role Status Dates Dr. Amado James MD Primary Care Provider Active Start: February 11, 2025 Dr. Eduardo Corona DO Emergency Provider Active Start: February 11, 2025 Dr. Zachery Gomez MD Admit Provider Active Sta rt: February 11, 2025 Dr. Zachery Gomez MD Other Provider Active Sta rt: February 11, 2025 Dr. Leyda Cardona MD Other Provider Active St art: February 11, 2025 Dr. Roosevelt Moss MD Other Provider Active Start: February 11, 2025 Dr. James Whelan MD Other Provider Active Start: February 11, 2025 Dr. Vinayak De Los Santos MD Other Provider Active Start: February 11, 2025 Dr. Yaw Thompson MD Other Provider Active Star t: February 11, 2025 Dr. Jose Pool , Other Provider Active Start : February 11, 2025 Dr. Oscar Weinstein MD Other Provider Active Sta rt: February 11, 2025 Dr. Noe Salcido MD Other Provider Active St art: February 11, 2025 Dr. Joni Wood MD Other Provider Active S tart: February 11, 2025 Dr. Lizbeth Avery MD Other Provider Active Start: February 11, 2025 Dr. Red Bustamante MD Other Provider Active Start : February 11, 2025 Dr. Enrique Neff MD Other Provider Active Start: February 11, 2025 Dr. Armando Rangel MD Other Provider Active Start : February 11, 2025 Dr. Lina Fernando MD Other Provider Active Star t: February 11, 2025 Dr. Jessa Solorazno MD Other Provider Active Sta rt: February 11, 2025 Dr. Nilsa Hilton MD Other Provider Active Sta rt: February 11, 2025 Dr. Ernesto Tate MD Other Provider Active Star t: February 11, 2025 Dr. Ab Singh MD Other Provider Active St art: February 11, 2025 Dr. Dwight Hines MD Other Provider Active Star t: February 11, 2025 Dr. Thad Cohen , Other Provider Active St art: February 11, 2025 Dr. Tg Waller MD Other Provider Active Start: February 11, 2025 Dr. Jam De La Rosa MD Other Provider Active St art: February 11, 2025 Dr. Mike Martinez , Other Provider Active Start: February 11, 2025 Dr. Jeromy Cleary MD Other Provider Active Star t: February 11, 2025 Dr. Anthony Dillard MD Other Provider Active Sta rt: February 11, 2025 Dr. Herbert Cardona MD Other Provider Active Start: February 11, 2025 Dr. Harry Stallings MD Attending Provider Active S tart: February 11, 2025 Team Status: Active Member Role Status Dates Dr. Amado James MD Primary Care Provider Active Start: February 12, 2025 Dr. Eduardo Corona , Emergency Provider Active Start: February 12, 2025 Dr. Zachery Gomez MD Admit Provider Active Sta rt: February 12, 2025 Dr. Zachery Gomez MD Other Provider Active Sta rt: February 12, 2025 Dr. Leyda Cardona MD Other Provider Active St art: February 12, 2025 Dr. Roosevlet Moss MD Other Provider Active Start: February 12, 2025 Dr. James Whelan MD Other Provider Active Start: February 12, 2025 Dr. Vinayak De Los Santos MD Other Provider Active Start: February 12, 2025 Dr. Yaw Thompson MD Other Provider Active Star t: February 12, 2025 Dr. Jose Pool , Other Provider Active Start : February 12, 2025 Dr. Oscar Weinstein MD Other Provider Active Sta rt: February 12, 2025 Dr. Noe Salcido MD Other Provider Active St art: February 12, 2025 Dr. Joni Wood MD Other Provider Active S tart: February 12, 2025 Dr. Lizbeth Avery MD Other Provider Active Start: February 12, 2025 Dr. Red Bustamante MD Other Provider Active Start : February 12, 2025 Dr. Enrique Neff MD Other Provider Active Start: February 12, 2025 Dr. Armando Rangel MD Other Provider Active Start : February 12, 2025 Dr. Lina Fernando MD Other Provider Active Star t: February 12, 2025 Dr. Jessa Solorzano MD Other Provider Active Sta rt: February 12, 2025 Dr. Nilsa Hilton MD Other Provider Active Sta rt: February 12, 2025 Dr. Ernesto Tate MD Other Provider Active Star t: February 12, 2025 Dr. Ab Singh MD Other Provider Active St art: February 12, 2025 Dr. Dwight Hines MD Other Provider Active Star t: February 12, 2025 Dr. Thad Cohen , Other Provider Active St art: February 12, 2025 Dr. Tg Waller MD Other Provider Active Start: February 12, 2025 Dr. Jam De La Rosa MD Other Provider Active St art: February 12, 2025 Dr. Mike Martinez DO Other Provider Active Start: February 12, 2025 Dr. Jeromy Cleary MD Other Provider Active Star t: February 12, 2025 Dr. Anthony Dillard MD Other Provider Active Sta rt: February 12, 2025 Dr. Herbert Cardona MD Other Provider Active Start: February 12, 2025 Dr. Harry Stallings MD Attending Provider Active S tart: February 12, 2025 Wide Load Escort Relationship Specialty Start Date End Date Amado James MD [address] [facility], [place] [id number] PCP - General 04/25/09 Rufina Soares, GROUNDMAN/LINEMAN.METALLURGIST HELPER [address] [facility] [address] [employer] Family Medicine 09/03/24 02/07/25 Maciel Busby, GROUNDMAN/LINEMAN.METALLURGIST HELPER [address] [facility], [place] [address] [employer] Family Medicine 09/12/24 Reason for Visit (unrecogniz ed section and content) Reason Onset Date Comments Population Health Navigation Outreach 03/16/2022 [place] [facility] Reason Comments F/U 6 Month Reason Comments F/U 3 Month Reason Onset Date Comments Refill Request 07/14/2022 Reason Onset Date Comments Refill Request 07/15/2022 Reason Comments Medication Problem Reason Onset Date Comments Refill Request 12/14/2022 Reason Onset Date Comments Allied Health Visit 12/23/2022 Medication A dherence Outreach Reason Onset Date Comments Population Health Navigation Outreach 01/25/2023 [place] [facility] Reason Comments Refill Request Reason Comments Results Reason Onset Date Comments Allied Health Visit 11/26/2023 Medication A dherence Outreach Reason Onset Date Comments Refill Request 12/02/2023 Reason Onset Date Comments Refill Request 01/13/2024 Reason Onset Date Comments Population Health Navigation Outreach 01/18/2024 Nadeen [facility]ber workbench - [facility], Care gaps, HCC gap closure - [place] [facility] Reason Onset Date Comments Refill Request 01/20/2024 Reason Onset Date Comments Refill Request 02/22/2024 Reason Onset Date Comments Population Health Navigation Outreach 02/28/2024 [facility] 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 - [facility], Care gaps, HCC gap closure - [place] [facility] Reason Comments Appointment Reason Comments Physical Reason Onset Date Comments Population Health Navigation Outreach 05/03/2024 [facility] - [facility] Reason Comments Wound Evaluation Bottom of right foot x 1 week Reason Comments Fax Request Reason Comments Opened In Error Reason Onset Date Comments Refill Request 06/06/2024 Reason Comments Fax Last OV Note Reason Comments Medicare Wellness Exam Reason Onset Date Comments Refill Request 07/12/2024 Reason Comments home health calling Reason Comments verbal orders Reason Onset Date Comments Transition Of Care 08/25/2024 Reason Comments Follow Up Hosptial follow up h upoglycemia Reason Comments Physical Therapy Plan of Care Reason Comments OT plan of care Reason Comments Orders Reason Comments Orders HH visit Reason Comments Patient Update Blood Sugars Reason Comments Retirement Continued Plan of Care Reason Comments Follow Up 1 week DM Reason Comments Patient Update Reason Onset Date Comments Population Health Navigation Outreach 10/06/2024 [facility]bench - [facility] Reason Comments Clinical Update re-cert for hh Reason Onset Date Comments Refill Request 11/08/2024 Reason Comments POC update Reason Comments Follow Up 2 month follow up Reason Comments Other Sent from [facility] for low HGB, [facility]. Pt is trach/vent dependant, A&Ox2-3 per EMS. RT called to the bedside. Pt does daily hemodialysis through R chest wall cath Specialty Diagnoses / Procedures Referred By Thuan t Referred To Contact Diagnoses Anemia Anemia, unspecified type Chronic renal failure, unspecified CKD stage Procedures ... Sharyn Amaya MD [address] [facility] [address] [address] Phone: tel: fax: [facility] Intensive Care Unit ICU [address] [place] [address] Phone: tel: Referral ID Status Reason Start Date Expiration Date Visits Re quested Visits Authorized [id number] 1 1 Reason Comments Vascular Access Problem Pt arrives to ED via [facility] from [facility] for a clogged dialysis catheter. Reason Comments Other Patient presents thr ough triage from [facility], staff states that patient needs new dialysis line and needs to have dialysis, last had half a treatment on Wednesday Reason Comments Other Pt here from [facility] to have dialysis catheter replaced. Procedure completed, here for dialysis before transported back. Pt is trach/vent dependent and oriented via mouthing words and nodding head. PEG tube in place Specialty Diagnoses / Procedures Referred By Thuan jama Referred To Contact Diagnoses ESRD (end stage renal disease) on dialysis (HCC) Procedures .. Griffin Peters MD [address] [place] [address] Phone: tel: fax: [facility] Surgical Trauma Neuro Intensive Care Unit ST[facility] ICU [address] [place] [address] Phone: tel: Referral ID Status Reason Start Date Expiration Date Visits Re quested Visits Authorized [id number] 1 1 INFORMATION SOURCE (unrecogn ized section and content) DATE CREATED AUTHOR 12/19/2024 [facility] DATE CREATED AUTHOR AUTHOR'S ORGANIZ ATION 05/10/2025 [facility] DATE CREATED AUTHOR AUTHOR'S ORGANIZ ATION 07/02/2025 [facility] DATE CREATED AUTHOR AUTHOR'S ORGANIZ ATION 07/07/[address] [facility] Scheduled Active and Recently Administ ered Medications (unrecognized section and content) Medication Order 06/19/2025 06/20/2025 06/21/2025 atorvastatin (Lipitor) tablet 40 mg 40 mg, Per G Tube, Daily, First dose (after last modification) on 06/02/25 at 0900 1404 (Given - Provider: Marion Swartz RN) 0903 (Given - Provider: Marion Swartz RN) 08 (Given - Provider: Marion Swartz RN) busPIRone (Buspar) tablet 5 mg 5 mg, Per G Tube, 3 times daily, First dose (after last modification) on 06/02/25 at 0900 0951 (Given - Provider: Marion Swartz RN)1404 (Given - Provider: Marion Swartz RN)2012 (Given - Provider: José De Jesus RN) 0902 (Given - Provider: Marion Swartz RN)1509 (Given - Provider: Marion Swartz RN)2122 (Given - Provider: Bladimir Mazariegos, RN) 0828 (Given - Provider: Marion Swartz RN)1420 (Given - Provider: Marion Swartz RN) carvedilol (Coreg) tablet 3.125 mg 3.125 mg, Per G Tube, 2 times daily with meals, First dose (after last modification) on [place] 06/03/25 at 0800 0951 (Given - Provider: Marion Swartz RN)1711 (Given - Provider: Cha Luna RN) 0902 (Given - Provider: Marion Swartz RN)1642 (Given - Provider: Marion Swartz RN) 0828 (Given - Provider: Marion Swartz RN)1654 (Given - Provider: Marion Swartz RN) cefepime (Maxipime) 1,000 mg in sodium chloride 0.9 % 50 mL IVPB 1,000 mg, IntraVENous, at 100 mL/hr, Administer over 30 Minutes, Every 12 hours, First dose (after last reorder) on [facility] 06/07/25 at 0515, Dosage or interval has been adjusted per [facility] Renal Dosing policy. Mini-Bag Plus bag, Suspected Indication (Select all that apply): Pneumonia (CAP) 0623 (New Bag - Provider: José De Jesus RN)0731 (Stopped - Provider: Marion Swartz RN)1711 (New Bag - Provider: Cha Luna, RYNE)1758 (Stopped - Provider: Marion Swartz RN) 0507 (New Bag - Provider: José De Jesus RN)0540 (Stopped - Provider: José De Jesus, RN)1642 (New Bag - Provider: Marion Swartz RN)1740 (Stopped - Provider: Marion Swartz RN) 0422 (New Bag - Provider: Bladimir Mazariegos, RN)0700 (Stopped - Provider: Marion Swartz RN)1653 (Not Given - Provider: Marion Swartz RN - Reason: Other - Comment: no iv access) chlorhexidine (Hibiclens) 4 % solution Topical, Daily, First dose on Wed06/15/25 at 1400 1405 (Given - Provider: Marion Swartz RN) 1509 (Given - Provider: Marion Swartz RN) 1420 (Given - Provider: Marion Swartz RN) epoetin jenn-epbx (Retacrit) injection 2,600 Units 2,600 Units (25 Units/kg 104 kg), SubCUTAneous, 3 times weekly (Once per day on Wednesday), First dose on Wed06/13/25 at 0900, Indications: ESRD on Dialysis 903 (Given - Provider: Marion Swartz RN) FLUoxetine (PROzac) capsule 20 mg 20 mg, Per G Tube, Daily, First dose (after last modification) on Wed06/02/25 at 0900 0950 (Given - Provider: Marion Swartz RN) 09 (Given - Provider: Marion Swartz RN) 08 (Given - Provider: Marion Swartz RN) furosemide (Lasix) tablet 20 mg 20 mg, Per G Tube, Daily, First dose (after last modification) on Wed06/02/25 at 0900 1711 (Given - Provider: Cha Luna RN) 09 (Given - Provider: Marion Swartz RN) 08 (Given - Provider: Marion Swartz RN) heparin injection 5,000 Units 5,000 Units, SubCUTAneous, Every 12 hours scheduled (2 times per day), First dose on Wed06/01/25 at 2100 0950 (Given - Provider: Marion Swartz RN)2012 (Given - Provider: José De Jesus, RYNE) 901 (Given - Provider: Marion Swartz RN)2121 (Given - Provider: Bladimir Mazariegos, RYNE) 08 (Given - Provider: Marion Swartz RN) insulin glargine (Lantus) injection 25 Units 25 Units, SubCUTAneous, 2 times daily, First dose on Wed06/01/25 at 2100 0823 (Given - Provider: Marion Swartz RN)2012 (Given - Provider: José De Jesus RN) 901 (Given - Provider: Marion Swartz RN)2120 (Given - Provider: Bladimir Mazariegos, RYNE) 08 (Given - Provider: Marion Swartz RN) Insulin Lispro (Humalog) injection 0-6 Units 0-6 Units, SubCUTAneous, Every 6 hours, First dose on Wed06/02/25 at 1230, Low Dose Correction Algorithm Glucose: Dose: LESS than 150 No Insulin 150-199 1 Unit 200-249 2 Units 250-299 3 Units 300-349 4 Units 350-400 5 Units Above 400 6 Units 0004 (Not Given - Provider: José De Jesus RN - Reason: Order parameters not met)0628 (Not Given - Provider: José De Jesus RN - Reason: Order parameters not met)1222 (Not Given - Provider: Marion Swartz RN - Reason: Order parameters not met)1729 (Not Given - Provider: Marion Swartz RN - Reason: Order parameters not met) 0204 (Not Given - Provider: José De Jesus RN - Reason: Other)0623 (Not Given - Provider: José De Jesus RN - Reason: Order parameters not met)1257 (Not Given - Provider: Marion Swartz RN - Reason: Order parameters not met)1642 (Not Given - Provider: Marion Swartz RN - Reason: Order parameters not met)2348 (Not Given - Provider: Bladimir Mazariegos RN - Reason: Order parameters not met) 0624 (Not Given - Provider: Bladimir Mazariegos RN - Reason: Order parameters not met)1140 (Not Given - Provider: Marion Swartz RN - Reason: Order parameters not met)1656 (Not Given - Provider: Marion Swartz RN - Reason: Other) ipratropium-albuterol (Duo-Neb) 0.5-2.5 mg/3 mL nebulizer solution 3 mL (CANCELED) 3 mL, Nebulization, Every 4 hours, First dose on Wed06/06/25 at 1545 0008 (Given - Provider: Divya Barrientos RCP)0432 (Given - Provider: Divya Barrientos RCP)0722 (Given - Provider: Paula Richey RCP)1111 (Given - Provider: Paula Richey RCP)1446 (Given - Provider: Paula Richey RCP)2013 (Given - Provider: Cha Ramon, PRODUCTION MAINTENANCE TECHNICIAN) ipratropium-albuterol (Duo-Neb) 0.5-2.5 mg/3 mL nebulizer solution 3 mL 3 mL, Nebulization, 3 times daily, First dose (after last modification) on Wed06/20/25 at 0800 0825 (Given - Provider: Chuyita Gallegos RCP)1603 (Given - Provider: Chuyita Gallegos RCP)2014 (Given - Provider: Maycol Lucas RCP) 0830 (Given - Provider: Chuyita Gallegos RCP)1252 (Given - Provider: Chuyita Gallegos RCP)2000 (Canceled Entry - Provider: Automatic Discharge Provider - Comment: Automatically canceled at discontinue of medication order) miconazole (Micotin) 2 % powder Topical, 2 times daily, First dose on Wed06/04/25 at 2100, Apply to abdominal skin folds 0952 (Given - Provider: Marion Swartz RN)2012 (Given - Provider: José De Jesus RN) 09 (Given - Provider: Marion Swartz RN)2120 (Given - Provider: Bladimir Mazariegos RN) 08 (Given - Provider: Marino Swartz RN) midodrine (Proamatine) tablet 10 mg 10 mg, Per G Tube, 3 times daily, First dose (after last modification) on Wed06/02/25 at 0900 0951 (Given - Provider: Marion Swartz RN)1404 (Given - Provider: Marion Swartz RN)2012 (Given - Provider: José De Jesus RN) 09 (Given - Provider: Marion Swartz RN)1509 (Given - Provider: Marion Swartz RN)2121 (Given - Provider: Bladimir Mazariegos RN) 08 (Given - Provider: Marion Swartz RN)1420 (Given - Provider: Marion Swartz RN) minocycline capsule 100 mg 100 mg, Oral, 2 times daily, First dose on Wed06/13/25 at 0930, For 10 days, Suspected Indication (Select all that apply): Pneumonia (VAP) 0950 (Given - Provider: Marion Swartz RN)2012 (Given - Provider: José De Jesus RN) 09 (Given - Provider: Marion Swartz RN)2121 (Given - Provider: Bladimir Mazariegos RN) 08 (Given - Provider: Marion Swartz RN) pantoprazole (ProtoNix) 40 mg in sodium chloride (PF) 0.9 % 10 mL injection 40 mg, IntraVENous, Administer over 2 Minutes, Nightly, First dose on Wed06/02/25 at 2100, Give only if unable to tolerate po. 2019 (Given - Provider: José De Jesus, RN) 2121 (Given - Provider: Bladimir Mazariegos, RN) sodium chloride 0.9% (NS) flush 10 mL 10 mL, IntraCATHeter, Every 12 hours, First dose on [place] 06/14/25 at 2100, Administer to each lumen. Line Care. Use 10 mL or larger syringe. 951 (Given - Provider: Marion Swartz RN)2013 (Given - Provider: José De Jesus RN) 902 (Given - Provider: Marion Swartz RN)2135 (Given - Provider: Bladimir Mazariegos, RN) 827 (Given - Provider: Marion Swartz RN) sodium chloride 3 % hypertonic nebulizer solution 4 mL 4 mL, Nebulization, 2 times daily, First dose (after last modification) on Wed06/13/25 at 2100 07 (Given - Provider: Paula Richey RCP)2013 (Given - Provider: Cha Ramon, PRODUCTION MAINTENANCE TECHNICIAN) 08 (Given - Provider: Chuyita Gallegos RCP)2014 (Given - Provider: Maycol Lucas RCP) 08 (Given - Provider: Chuyita Gallegos RCP) stomahesive in petrolatum (ET Mix) Topical, Every 8 hours scheduled (3 times per day), First dose on Wed06/04/25 at 2200, Apply to sacrum and right med thigh 622 (Given - Provider: José De Jesus, RN)140 (Given - Provider: Marion Swartz RN)223 (Given - Provider: José De Jesus RN) 0532 (Given - Provider: José De Jesus RN)163 (Not Given - Provider: Marion Swartz RN - Reason: Other - Comment: already given)2123 (Given - Provider: Bladimir Mazariegos, RN) 06 (Given - Provider: Bladimir Mazariegos, RYNE)142 (Not Given - Provider: Marion Swartz RN - Reason: Other) PRN Medication Order 06/19/2025 06/20/2025 06/21/2025 acetaminophen (Tylenol) suppository 650 mg(Linked Group 1) 650 mg, Rectal, Every 6 hours PRN, fever, For temp greater than 100.4 F (38 C), Starting on Wed06/01/25 at 1530, Administer if oral route cannot be used. Maximum dose of acetaminophen is 4000 mg from all sources in 24 hours. acetaminophen (Tylenol) tablet 650 mg(Linked Group 1) 650 mg, Oral, Every 6 hours PRN, mild pain (1-3), fever, For temp greater than 100.4 F (38 C), Starting on Wed06/01/25 at 1530, Maximum dose of acetaminophen is 4000 mg from all sources in 24 hours. albumin human 5 % IV solution 25 g 25 g, IntraVENous, at 180 mL/hr, 3 times daily PRN, May administer during dialysis as needed, Starting on Wed06/02/25 at 0001, Infusion rate depends on indication and clinical situation. In emergencies, may administer as rapidly as necessary to improve clinical condition. After initial volume replacement: 5%: Do not exceed 2 to 4 mL/minute (120 to 240 mL/hr) in patients with normal plasma volume; 5 to 10 mL/minute (300 to 600 mL/hr) in patients with hypoproteinemia albuterol (2.5 MG/3ML) 0.083% nebulizer solution 2.5 mg 2.5 mg, Nebulization, Every 6 hours PRN, wheezing, shortness of breath, Starting on Wed06/06/25 at 1204, Initiate RT Bronchodilator Protocol? No dextrose 5 % and sodium chloride 0.45 % bolus 500 mL 500 mL, IntraVENous, at 250 mL/hr, Administer over 2 Hours, 3 times daily PRN, hypotension, Starting on Wed06/01/25 at 2217 dextrose 5 % infusion 100 mL/hr, IntraVENous, PRN, Blood sugar less than 70mg/dL, Starting on Wed06/01/25 at 1530, Start infusion following administration of dextrose 50% or glucagon. dextrose 50 % solution 12.5 g 12.5 g, IntraVENous, PRN, low blood sugar, Blood glucose less than 70 mg/dL and patient NOT ALERT or NPO., Starting on Wed06/01/25 at 1530, If patient does not respond within 5 minutes, repeat dose x1. Start D5W at 100 mL/hour until ordering provider can be reached. Repeat blood glucose in 15 minutes. If blood glucose is less than 70 mg/dL, repeat treatment and recheck blood glucose in 15 minutes x2. If using Glucostabilizer, dose as instructed per system. glucagon (human recombinant) injection 1 mg 1 mg, IntraMUSCular, PRN, low blood sugar, Blood glucose less than 70 mg/dL and patient NOT ALERT or NPO and does not have IV access., Starting on Wed06/01/25 at 1530, After administration, attempt intravenous access and start D5W at 100 mL/hr. Repeat blood glucose in 15 minutes x2 and notify provider. glucose oral gel 15 g 15 g, Oral, As needed, low blood sugar, Starting on Wed06/01/25 at 1530, If blood glucose less than 50 mg/dL and patient ALERT and NOT NPO, give 2 tubes glucose gel. If blood glucose less than 70 mg/dL and patient ALERT and NOT NPO, give 1 tube glucose gel. Repeat blood glucose in 15 minutes. If blood glucose is less than 70 mg/dL, repeat treatment and recheck blood glucose in 15 minutes x2 and notify provider. heparin injection 1,200-2,000 Units 1,200-2,000 Units, IntraCATHeter, As needed, For hemodialysis system down vascular catheter, Starting on Wed06/01/25 at 1801, Dialysis, To ARTERIAL lumen. Use when system down. Dose based on lumen volume: 1,200 units = 1.2 mL 1,400 units = 1.4 mL 1,500 units = 1.5 mL 1,600 units = 1.6 mL 1,700 units = 1.7 mL 1,800 units = 1.8 mL 2,000 units = 2 mL 1302 (Given - Provider: Levi Kothari RN) heparin injection 1,200-2,000 Units 1,200-2,000 Units, IntraCATHeter, As needed, For hemodialysis system down vascular catheter, Starting on Wed06/01/25 at 1801, Dialysis, To VENOUS lumen. Use when system down. Dose based on lumen volume: 1,200 units = 1.2 mL 1,400 units = 1.4 mL 1,500 units = 1.5 mL 1,600 units = 1.6 mL 1,700 units = 1.7 mL 1,800 units = 1.8 mL 2,000 units = 2 mL 1301 (Given - Provider: Levi Kothari RN) heparin injection 1,200-2,000 Units 1,200-2,000 Units, IntraCATHeter, As needed, line care, For hemodialysis system down vascular catheter, Starting on Wed06/12/25 at 0919, To ARTERIAL lumen. Use when system down. Dose based on lumen volume: 1,200 units = 1.2 mL 1,400 units = 1.4 mL 1,500 units = 1.5 mL 1,600 units = 1.6 mL 1,700 units = 1.7 mL 1,800 units = 1.8 mL 2,000 units = 2 mL heparin injection 1,200-2,000 Units 1,200-2,000 Units, IntraCATHeter, As needed, line care, For hemodialysis system down vascular catheter, Starting on Wed06/12/25 at 0919, To VENOUS lumen. Use when system down. Dose based on lumen volume: 1,200 units = 1.2 mL 1,400 units = 1.4 mL 1,500 units = 1.5 mL 1,600 units = 1.6 mL 1,700 units = 1.7 mL 1,800 units = 1.8 mL 2,000 units = 2 mL HYDROmorphone (Dilaudid) injection 0.25 mg 0.25 mg, IntraVENous, Every 4 hours PRN, severe pain (7-10), Starting on Wed06/15/25 at 1614, If oral and IV narcotics ordered, use oral first and only use IV if oral is ineffective or cannot take oral. Do Not give oral and IV within 1 hour of each other unless specifically ordered. LORazepam (Ativan) tablet 0.25 mg 0.25 mg, Per G Tube, Every 8 hours PRN, anxiety, Agitation, Starting on Wed06/14/25 at 1713 melatonin tablet 3 mg 3 mg, Per G Tube, Nightly PRN, sleep, Starting on Wed06/14/25 at 1346 polyethylene glycol (PEG) 3350 (Miralax) packet 17 g 17 g, Oral, Daily PRN, constipation, Starting on Wed06/01/25 at 1530, 1st line for treatment of constipation - give scheduled if no bowel movement in past 24 hours. promethazine (Phenergan) injection 12.5 mg(Linked Group 2) 12.5 mg, IntraMUSCular, Every 6 hours PRN, nausea, vomiting, Starting on Wed06/01/25 at 1530, Only to be given as IM injection. promethazine (Phenergan) suppository 12.5 mg(Linked Group 2) 12.5 mg, Rectal, Every 6 hours PRN, nausea, vomiting, Starting on Wed06/01/25 at 1530 promethazine (Phenergan) tablet 12.5 mg(Linked Group 2) 12.5 mg, Oral, Every 6 hours PRN, nausea, vomiting, Starting on Wed06/01/25 at 1530 sodium chloride 0.9 % infusion 250 mL/hr, IntraVENous, Administer over 10 Minutes, As needed, For use in priming line prior to transfusion (prime via gravity) and flush line post transfusion, Starting on Wed06/01/25 at 1311, For 1 dose, For use in priming line prior to transfusion (prime via gravity) and flush line post transfusion ONLY. Discontinue once line has been cleared of remaining blood product. sodium chloride 0.9 % infusion 250 mL/hr, IntraVENous, Administer over 10 Minutes, As needed, For use in priming line prior to transfusion (prime via gravity) and flush line post transfusion, Starting on Wed06/06/25 at 0714, For 1 dose, For use in priming line prior to transfusion (prime via gravity) and flush line post transfusion ONLY. Discontinue once line has been cleared of remaining blood product. sodium chloride 0.9 % infusion 250 mL/hr, IntraVENous, Administer over 10 Minutes, As needed, For use in priming line prior to transfusion (prime via gravity) and flush line post transfusion, Starting on Wed06/10/25 at 0607, For 1 dose, For use in priming line prior to transfusion (prime via gravity) and flush line post transfusion ONLY. Discontinue once line has been cleared of remaining blood product. sodium chloride 0.9% (NS) flush 10 mL 10 mL, IntraCATHeter, PRN, line care, before blood draws, before and after infusion or medication administration, Starting on [place] 06/14/25 at 1420, Use 10 mL or larger syringe. stomahesive in petrolatum (ET Mix) Topical, PRN, dry skin, Starting on 06/04/25 at 1646 1509 (Given - Provider: Marion Swartz RN)2120 (Given - Provider: Bladimir Mazariegos, RN)2122 (Given - Provider: Bladimir Mazariegos RN) 142 (Given - Provider: Marion Swartz RN)142 (Not Given - Provider: Marion Swartz RN - Reason: Other) Linked Groups Order Group 1: acetaminophen (Tylenol) tablet 650 mgJump to med 650 mg, Oral, Every 6 hours PRN, mild pain (1-3), fever, For temp greater than 100.4 F (38 C), Starting on Wed06/01/25 at 1530, Maximum dose of acetaminophen is 4000 mg from all sources in 24 hours. Or acetaminophen (Tylenol) suppository 650 mgJump to med 650 mg, Rectal, Every 6 hours PRN, fever, For temp greater than 100.4 F (38 C), Starting on Wed06/01/25 at 1530, Administer if oral route cannot be used. Maximum dose of acetaminophen is 4000 mg from all sources in 24 hours. Group 2: promethazine (Phenergan) tablet 12.5 mgJump to med 12.5 mg, Oral, Every 6 hours PRN, nausea, vomiting, Starting on Wed06/01/25 at 1530 Or promethazine (Phenergan) injection 12.5 mgJump to med 12.5 mg, IntraMUSCular, Every 6 hours PRN, nausea, vomiting, Starting on Wed06/01/25 at 1530, Only to be given as IM injection. Or promethazine (Phenergan) suppository 12.5 mgJump to med 12.5 mg, Rectal, Every 6 hours PRN, nausea, vomiting, Starting on Wed06/01/25 at 1530 Scheduled Medication Order 07/04/2025 07/05/2025 07/06/2025 albuterol (2.5 MG/3ML) 0.083% nebulizer solution 2.5 mg 2.5 mg, Nebulization, 3 times daily, First dose on Wed07/06/25 at 1130 1254 (Given - Provid er: Pro Weinberg, PRICILA) atorvastatin (Lipitor) tablet 40 mg 40 mg, Per G Tube, Nightly, First dose on Wed07/04/25 at 2100 2211 (Given - Provider: Nilda Moy, RN) 2009 (Given - Provider: Vijaya Villar, RYNE) busPIRone (Buspar) tablet 5 mg 5 mg, Per G Tube, 3 times daily, First dose on Wed07/04/25 at 2100 2211 (Given - Provider: Nilda Moy RN) 0910 (Given - Provider: Neena Kent RN)1539 (Given - Provider: Michael Todd RN)2008 (Given - Provider: Vijaya Villar RN) 0807 (Given - Provider: Darrell Egan, RYNE)1328 (Given - Provider: Darrell Egan, RYNE) carvedilol (Coreg) tablet 3.125 mg 3.125 mg, Per G Tube, 2 times daily with meals, First dose on Wed07/04/25 at 1850 2313 (Not Given - Provider: Cortez Kumar RN - Reason: Contraindicated) 0909 (Given - Provider: Neena Kent RN)1738 (Given - Provider: Michael Todd RN) 0759 (Given - Provider: Darrell Egan RN)1700 (Canceled Entry - Provider: Automatic Discharge Provider - Comment: Automatically canceled at discontinue of medication order) epoetin jenn-epbx (Retacrit) injection 2,600 Units 2,600 Units, IntraVENous, 3 times weekly (Once per day on Wednesday), First dose on Wed07/06/25 at 0900, Indications: ESRD on Dialysis 0946 (Given - Provid er: Carmita Prasad RN) FLUoxetine (PROzac) capsule 20 mg 20 mg, Per G Tube, Daily, First dose on Wed07/05/25 at 0900 0915 (Given - Provider: Neena Kent RN) 0903 (Given - Provider: Darrell Egan RN) insulin glargine (Lantus) injection 25 Units 25 Units, SubCUTAneous, 2 times daily, First dose on Wed07/04/25 at 2100, Do not hold without physician order. 2228 (Given - Provider: Nilda Moy RN) 0956 (Given - Provider: Neena Kent RN - Comment: BS 91)2009 (Given - Provider: Vijaya Villar, RN) 08 (Given - Provider: Darrell Egan RN) Insulin Lispro (Humalog) injection 0-12 Units(Linked Group 1) 0-12 Units, SubCUTAneous, 3 times daily with meals, First dose on Wed07/04/25 at 1850, Medium Dose Correction Algorithm Glucose: Dose: LESS than 150 No Insulin 150-199 2 Units 200-249 4 Units 250-299 6 Units 300-349 8 Units 350-400 10 Units Above 400 12 Units 1908 (Not Given - Provider: Mary Gil RN - Reason: Other - Comment: pt has not received any nutrtition since last blood glucose of 125) 09 (Not Given - Provider: Neena Kent RN - Reason: Order parameters not met - Comment: [phone] (Not Given - Provider: Neena Kent RN - Reason: Order parameters not met - Comment: BS [phone] (Given - Provider: Michael Todd RN - Comment: mbs [phone]) 0804 (Not Given - Provider: Darrell Egan RN - Reason: Order parameters not met)1139 (Not Given - Provider: Darrell Egan RN - Reason: Order parameters not met)1700 (Canceled Entry - Provider: Automatic Discharge Provider - Comment: Automatically canceled at discontinue of medication order) Insulin Lispro (Humalog) injection 0-12 Units(Linked Group 1) 0-12 Units, SubCUTAneous, Nightly, First dose on Wed07/04/25 at 2100, If eating or bolus tube feeding: Medium Dose Correction Algorithm Glucose: Dose: LESS than 150 No Insulin 150-199 2 Units 200-249 4 Units 250-299 6 Units 300-349 8 Units 350-400 10 Units Above 400 12 Units 2226 (Not Given - Provider: Nilda Moy RN - Reason: Order parameters not met - Comment: BGT [id number]) 2003 (Not Given - Provider: Vijaya Villar, RN - Reason: Order parameters not met) miconazole (Micotin) 2 % powder Topical, 2 times daily, First dose on Wed07/05/25 at 0015 0651 (Given - Provider: Cortez Kumar RN)0909 (Given - Provider: Neena Kent RN)2010 (Given - Provider: Vijaya Villar RN) 09 (Not Given - Provider: Darrell Egan RN - Reason: Medication not available) midodrine (Proamatine) tablet 10 mg 10 mg, Per G Tube, 3 times daily, First dose on Wed07/04/25 at 2100 2211 (Given - Provider: Nilda Moy RN) 0926 (Given - Provider: Neena Kent RN)1539 (Given - Provider: Michael Todd, RYNE)2009 (Given - Provider: Vijaya Villar RN) 08 (Given - Provider: Darrell Egan, RYNE)1328 (Given - Provider: Darrell Egan, RYNE) mupirocin (Bactroban) 2 % ointment Topical, 3 times daily, First dose on Wed07/05/25 at 0930 0925 (Not Given - Provider: Neena Kent RN - Reason: Patient/family refused)1530 (Given - Provider: Michael Todd, RYNE)2009 (Given - Provider: Vijaya Villar RN) 08 (Given - Provider: Darrell Egan, RYNE)1328 (Given - Provider: Darrell Egan, RYNE) sodium chloride 0.9% (NS) flush 5-40 mL 5-40 mL, IntraVENous, Every 12 hours, First dose on Wed07/04/25 at 2100, For Line Patency: Peripheral IV = 5 mL; Midline or Central Line = 10 mL/lumen. If following IV push medication, administer flush at same rate as the IV push. Flush volume is determined by type of infusion therapy being given. For non-viscous solutions use: Peripheral IV = 5 mL Midline or Central Line = 10 mL/lumen For viscous solutions (i.e. blood components, parenteral nutrition, contrast media, or after obtaining blood sample) use: Peripheral IV = 10 mL Midline or Central Line = 20 mL/lumen 2134 (Given - Provider: Nilda Moy RN) 09 (Not Given - Provider: Neena Kent RN - Reason: IV Fluids Infusing)2010 (Given - Provider: Vijaya Villar RN) 0807 (Not Given - Provider: Darrell Egan RN - Reason: Other) PRN Medication Order 07/04/2025 07/05/2025 07/06/2025 acetaminophen (Tylenol) suppository 650 mg(Linked Group 2) 650 mg, Rectal, Every 6 hours PRN, mild pain (1-3), fever, For temp greater than 100.4 F (38 C), Starting on Wed07/04/25 at 2056, Administer if oral route cannot be used. Maximum dose of acetaminophen is 4000 mg from all sources in 24 hours. acetaminophen (Tylenol) tablet 650 mg(Linked Group 2) 650 mg, Oral, Every 6 hours PRN, mild pain (1-3), fever, For temp greater than 100.4 F (38 C), Starting on Wed07/04/25 at 2056, Maximum dose of acetaminophen is 4000 mg from all sources in 24 hours. dextrose 5 % infusion 100 mL/hr, IntraVENous, PRN, Blood sugar less than 70mg/dL, Starting on Wed07/04/25 at 1900, Start infusion following administration of dextrose 50% or glucagon. dextrose 50 % solution 12.5 g 12.5 g, IntraVENous, PRN, low blood sugar, Blood glucose less than 70 mg/dL and patient NOT ALERT or NPO., Starting on Wed07/04/25 at 1900, If patient does not respond within 5 minutes, repeat dose x1. Start D5W at 100 mL/hour until ordering provider can be reached. Repeat blood glucose in 15 minutes. If blood glucose is less than 70 mg/dL, repeat treatment and recheck blood glucose in 15 minutes x2. If using Glucostabilizer, dose as instructed per system. glucagon (human recombinant) injection 1 mg 1 mg, IntraMUSCular, PRN, low blood sugar, Blood glucose less than 70 mg/dL and patient NOT ALERT or NPO and does not have IV access., Starting on Wed07/04/25 at 1900, After administration, attempt intravenous access and start D5W at 100 mL/hr. Repeat blood glucose in 15 minutes x2 and notify provider. glucose oral gel 15 g 15 g, Oral, As needed, low blood sugar, Starting on Wed07/04/25 at 1900, If blood glucose less than 50 mg/dL and patient ALERT and NOT NPO, give 2 tubes glucose gel. If blood glucose less than 70 mg/dL and patient ALERT and NOT NPO, give 1 tube glucose gel. Repeat blood glucose in 15 minutes. If blood glucose is less than 70 mg/dL, repeat treatment and recheck blood glucose in 15 minutes x2 and notify provider. heparin injection 2,000 Units 2,000 Units, IntraCATHeter, As needed, line care, Starting on Dalila 07/05/25 at 0326, For ARTERIAL lumen 0815 (Given - Provider: Kendra Suarez RN) 1200 (Given - Provider: Carmita Prasad RN) heparin injection 2,000 Units (CANCELED) 2,000 Units, IntraCATHeter, As needed, line care, Starting on Dalila 07/05/25 at 0328, For VENOUS lumen 0815 (Given - Provider: Kendra Suarez RN) heparin injection 2,100 Units 2,100 Units, IntraCATHeter, As needed, line care, Starting on Wed07/06/25 at 0936, For VENOUS lumen 1200 (Given - Provid er: Carmita Prasad RN) ondansetron (Zofran) injection 4 mg(Linked Group 3) 4 mg, IntraVENous, Every 6 hours PRN, nausea, vomiting, Starting on Wed07/04/25 at 2056, 1st Line. Give IV if patient is unable to take orally. If inadequate response within 60 minutes, proceed to next-line agent or contact provider if no further options ordered. ondansetron ODT (Zofran-ODT) disintegrating tablet 4 mg(Linked Group 3) 4 mg, Oral, Every 8 hours PRN, nausea, vomiting, Starting on Wed07/04/25 at 2056, 1st Line. If inadequate response within 60 minutes, proceed to next-line agent or contact provider if no further options ordered. Patient should allow tablet to dissolve on tongue. Do not remove from blister pack until just before administering. polyethylene glycol (PEG) 3350 (Miralax) packet 17 g 17 g, Oral, Daily PRN, constipation, Starting on Wed07/04/25 at 2056, 1st line for treatment of constipation - give scheduled if no bowel movement in past 24 hours. sodium chloride 0.9 % infusion 5-250 mL/hr, IntraVENous, PRN, if patient receiving piggyback infusions and maintenance fluids are not ordered OR KVO fluids to protect IV site / prevent frequent line interruptions / long duration, Starting on Wed07/04/25 at 2056, For piggyback infusion, administer at same rate as piggyback for a total of 25 mL. Enter 25 mL into dose field and piggyback rate into rate field of order. If piggyback is infusing at a rate less than 100 mL/hr, enter 25 mL into dose field and 100 mL/hr into rate field of order. For KVO fluids, enter rate of 20 mL/hr or less into rate field of order. sodium chloride 0.9% (NS) flush 5-40 mL 5-40 mL, IntraVENous, PRN, line care, After every IV line use, Starting on Wed07/04/25 at 2056, For Line Patency: Peripheral IV = 5 mL; Midline or Central Line = 10 mL/lumen. If following IV push medication, administer flush at same rate as the IV push. Flush volume is determined by type of infusion therapy being given. For non-viscous solutions use: Peripheral IV = 5 mL Midline or Central Line = 10 mL/lumen For viscous solutions (i.e. blood components, parenteral nutrition, contrast media, or after obtaining blood sample) use: Peripheral IV = 10 mL Midline or Central Line = 20 mL/lumen Linked Groups Order Group 1: Insulin Lispro (Humalog) injection 0-12 UnitsJump to med 0-12 Units, SubCUTAneous, 3 times daily with meals, First dose on Wed07/04/25 at 1850, Medium Dose Correction Algorithm Glucose: Dose: LESS than 150 No Insulin 150-199 2 Units 200-249 4 Units 250-299 6 Units 300-349 8 Units 350-400 10 Units Above 400 12 Units And Insulin Lispro (Humalog) injection 0-12 UnitsJump to med 0-12 Units, SubCUTAneous, Nightly, First dose on Wed07/04/25 at 2100, If eating or bolus tube feeding: Medium Dose Correction Algorithm Glucose: Dose: LESS than 150 No Insulin 150-199 2 Units 200-249 4 Units 250-299 6 Units 300-349 8 Units 350- 400 10 Units Above 400 12 Units Group 2: acetaminophen (Tylenol) tablet 650 mgJump to med 650 mg, Oral, Every 6 hours PRN, mild pain (1-3), fever, For temp greater than 100.4 F (38 C), Starting on Wed07/04/25 at 2056, Maximum dose of acetaminophen is 4000 mg from all sources in 24 hours. Or acetaminophen (Tylenol) suppository 650 mgJump to med 650 mg, Rectal, Every 6 hours PRN, mild pain (1-3), fever, For temp greater than 100.4 F (38 C), Starting on Wed07/04/25 at 2056, Administer if oral route cannot be used. Maximum dose of acetaminophen is 4000 mg from all sources in 24 hours. Group 3: ondansetron ODT (Zofran-ODT) disintegrating tablet 4 mgJump to med 4 mg, Oral, Every 8 hours PRN, nausea, vomiting, Starting on Wed07/04/25 at 2056, 1st Line. If inadequate response within 60 minutes, proceed to next-line agent or contact provider if no further options ordered. Patient should allow tablet to dissolve on tongue. Do not remove from blister pack until just before administering. Or ondansetron (Zofran) injection 4 mgJump to med 4 mg, IntraVENous, Every 6 hours PRN, nausea, vomiting, Starting on Wed07/04/25 at 2056, 1st Line. Give IV if patient is unable to take orally. If inadequate response within 60 minutes, proceed to next-line agent or contact provider if no further options ordered. FOR RECORDS PERTAINING TO PATIENTS WHO ARE [...] BE BASED ON THE PRIMARY CLINICAL RECORDS. [employer] [facility]. provides no warranty or guarantee of the accuracy or completeness of information in this document.
[2025-07-16 08:03] LABS: Hematocrit 24.6 % (37-47); Hemoglobin 7.7 g/dL (12.0-15.0); Mean Corp Hgb Conc 31.3 g/dL (32-36); Mean Corpuscular Volume 86.0 fL (81-99); Mean Platelet Vol. 10.1 fl (6.2-12.0); Platelet Count 234 K/mm3 (150-450); RBC Distribution Width CV 17.5 % (11.6-14.6); RBC Distribution Width SD 55.4 fl (35.1-43.9); Red Blood Count 2.86 M/mm3 (4.2-5.4); White Blood Count 7.2 K/mm3 (4.4-11.0)
[2025-07-16 08:26] LABS: Anion Gap 13 (5-15); BUN 82 mg/dL (4-19); BUN/Creat Ratio 21.2 RATIO (10-20); Calcium,Total 10.0 mg/dL (7.6-11.0); Carbon Dioxide 30.7 mmol/L (21.0-32.0); Chloride 89 mmol/L (98-108); Glucose 234 mg/dL (70-99); Potassium 3.8 mmol/L (3.3-5.1)
== END ==
LOC: OLS.SANC 05:00
PROVIDERS: PCP Family Medicine
DX: E11.22 Type 2 diabetes mellitus with diabetic chronic kidney disease (principal); N18.6 End stage renal disease; J96.01 Acute respiratory failure with hypoxia
CPT/HCPCS: 36415; 80048; 85027

== ENCOUNTER → 2025-07-31 08:39 | Outpatient (REF) | payer MEDICARE, MEDICAID, SELFPAY | LOC: OLS.SANC 08:39 | PROVIDERS: PCP Family Medicine | DX: I50.9 Heart failure, unspecified (principal) | CPT/HCPCS: 87070; 87077; 87186; 87205 ==

== ENCOUNTER → 2025-08-01 05:00 | Outpatient (REF) | payer MEDICARE, MEDICAID, SELFPAY ==
--- OUTSIDE RECORDS SUMMARY | 2025-08-01 04:41 | XMS RPT_ITS | CCD ---
Author Organization [facility] Care Team Providers Care Scroll Assembler Name Role Phone Dr. Amado Jmaes Primary Care Provider Dr. Cindy Snyder Emergency Provider Dr. Marva Mckeon Attending Provider [phone] Dr. Amado James Primary Care Provider [phone] Dr. Juancarlos Polanco Attending Provider Dr. Marva [facility]keonit [facility] Other Provider Tono, Dr. Mehta Attending Provider Dr. Zachery Gomez Attending Provider [phone] Zachery Gomez Other Provider [phone] Dr. Harry Stallings Attending Provider Amado James MD Primary Care Provider Dr. Cindy Snyder Referring Provider Dr. Harry Stallings Attending Provider Dr. Zachery Gomez Referring Provider [phone] Zachery Gomez Referring Provider [phone] Dr. Amado James Referring Provider Dr. Amado James Primary Care Provider Dr. Cindy Snyder Emergency Provider Dr. Marva Mckeonit Provider Dr. Marva Mckeon Other Provider Friend, Dr. Mehta Attending Provider Dr. Harry Stallings Other Provider MD Harry Stallings Referring Provider Unavailable Amado James MD Primary Care Provider Amado James MD Primary Care Provider Dr. Amado James Primary Care Provider Dr. Amado James Referring Provider Good AIR AND MISSILE DEFENSE CREWMEMBER, AIR AND MISSILE DEFENSE CREWMEMBERErlindaC Carmela Attending Provider Amado James MD Primary Care Provider Caroline SOCK LINING STITCHER.BELLMANRufina Unavailable Campbell SOCK LINING STITCHER.BELLMAN, Maciel Unavailable AMADO JAMES Primary Care Unavailable AMADO JAMES Referring Unavailable AMADO JAMES Attending Unavailable AMADO JAMES Primary Care Unavailable RUFINA SOARES Attending Unavailable MOSES, AMADO Olvera Primary Care Unavailable AMADO JAMES Referring Unavailable AMADO JAMES Primary Care Unavailable MOSES, AMADO Olvera Primary Care Unavailable MOSES, AMADO Olvera Referring Unavailable MOSES, AMADO Olvera Primary Care Unavailable ELDERSAURABH, AMADO Olvera Attending Unavailable ELDERSAURABH, AMADO Olvera Primary Care Unavailable ELDERSAURABH, AMADO Olvera Attending Unavailable ELDERSAURABH, AMADO Olvera Attending Unavailable MOSES, AMADO Olvera Primary Care Unavailable RUFINA SOARES Attending Unavailable MOSES, AMADO Olvera Primary Care Unavailable Dr. Amado James MD Primary Care Provider Dr. Leyda Erwin DPM Attending Provider Dr. Leyda Erwin DPM Referring Provider Dr. Amado James MD Referring Provider Janusz Arzola Attending Provider Janusz Arzola Referring Provider Dr. Eduardo Corona DO Emergency Provider Jason MOLINA, Dr. Bingham Admit Provider Jason MOLINA, Dr. Bingham Attending Provider Jason MOLINA, Dr. Bingham Other Provider Jason MOLINA, Dr. Bingham Other Provider Brendan MOLINA, Dr. Miller Other Provider Ajay MOLINA, Dr. Albert Other Provider Tip MOLINA, Dr. Ramirez Other Provider Magali MOLINA, Dr. Licea Other Provider Jay MOLINA, Dr. Tidwell Other Provider Yrn CRISTOBAL, Dr. Garcia Other Provider Js MOLINA, Dr. Oscar Soliz Other Provider Loly MOLINA, Dr. Lui Other Provider [phone] Israel MOLINA, Dr. Quinones Other Provider Gena MOLINA, Dr. Nieves Other Provider Dianna MOLINA, Dr. Moon Other Provider [phone] Tawanda MOLINA, Dr. Nunez Other Provider [phone] Juan Carlos MOLINA, Dr. Roberts Other Provider [phone] Abdullahi MOLINA, Dr. Mills Other Provider [phone] Rashad MOLINA, Dr. Germain Other Provider [facility] n[facility] Hilton MD, Dr. Ash Other Provider Lea MOLINA, Dr. Orozco Other Provider Francisco MOLINA, Dr. Berger Other Provider Flora MOLINA, Dr. Quintanilla Other Provider Noel CRISTOBAL, Dr. Oneil Other Provider Christin MOLINA, Dr. Mas Other Provider [phone] Estrella MOLINA, Dr. Polk Other Provider Dr. Mike Martinez DO Other Provider Evin MOLINA, Dr. Pinzon Other Provider Nishant MOLINA, Dr. Cruz Other Provider Brendan MOLINA, Dr. Herbert Avila Attending Provider Jason MOLINA, Dr. Bingham Attending Provider Dr. Leyda Cardona MD Attending Provider Haylie MOLINA, Dr. Mcdonald Attending Provider Yrn CRISTOBAL, Dr. Garcia Attending Provider Ofelia MOLINA, Dr. Cobos Attending Provider Brendan MOLINA, Dr. Herbert Avila Other Provider Caroline SOCK LINING STITCHER.BELLMAN, Rufina Unavailable CHEIKH SOCK LINING STITCHER-BELLMAN, BISHNU Attending Unavailab JAS Worley MD Attending Unavailable EMERY SAGE MD Consulting Unavailjosé miguel PARRA MD, YOLANDA Admitting Unavailable FIDEL MOLINA, YOLANDA Attending Unavailable JAS RAMIREZ MD Attending Unavailable KEKE ZARCO MD, JANAE Attending Unavailable KEKE ZARCO MD, JANAE Attending Unavailable Unavailable Primary Care Provider Unavailabl e Unavailable Primary Care Provider Unavailabl e GERARDO FELDER Attending Unavailable SHARYN AMAYA Admitting Unavailable SHARYN AMAYA Attending Unavailable KISHORE WOLFF Consulting Unavailable DIANA ZABALA Consulting Unavailable GRIFFIN PETERS Admitting Unavailable SANTOS JACOBS Attending Unavailable LYNN POWELL Consulting Unavailable RE MACIEL Referring Unavailable NONE, PCP Referring Unavailable KLEVER RAND Attending Unavailable Zachery Gomez Admitting Unavailable Zachery Gomez Attending Unavailable Zachery Gomez Consulting Unavailable Amado James Primary Care Unavailable Leyda Cardona Consulting Unavailable Herbert Cardona Attending Unavailable Roosevelt Moss Consulting Unavailable James Whelan Consulting Unavailable Magali, Vinayak Consulting Unavailable Yaw Thompson Consulting Unavailable Jose Pool Consulting Unavailable Oscar Weinstein Consulting Unavailable Noe Salcido Consulting Unavailable Israel, Joni Consulting Unavailable Lizbeth Avery Consulting Unavailab le Dianna, Red Consulting Unavailable Neff, Enrique Consulting Unavailable Armando Rangel Consulting Unavailable Lina Fernando Consulting Unavailable AlJessa yanez Consulting Unavailable Hilton, Nilsa Consulting Unavailable Lea, Ernesto Consulting Unavailable Ab Singh Consulting Unavailable Flora, Dwight Consulting Unavailable Dhesi, Thad Consulting Unavailable Christin, Tg Consulting Unavailable Estrella, Jam Consulting Unavailable Mike Martinez Consulting Unavailable Jeromy Cleary Consulting Unavailable Anthony Dillard Consulting Unavailable Leyda Brown Consulting Unavailable Herbert Cardona Consulting Unavailable Aston Chua Attending Unavailable Janusz Reaves Attending Unavailable Janusz Reaves Referring Unavailable Elderbrock, Amado Primary Care Unavailable Jose Pool Attending Unavailable Sharon Hastingsa Radha Referring Unavailable Anjum Small Consulting Unavailabl nery Hastings, Ana Laura Radha Consulting Unavailable Sagar Rendon Consulting Unavailable Harry Stallings Attending Unavailable Sharyn Vaughn Attending Unavail able Elderbrock, Amado Primary Care Unavailable Elderbrock, Amado Primary Care Unavailable Monique SHEPPARD Mahjayer Attending Unavail able Monique SHEPPARD Mahaveer Referring Unavail able Niya SHEPPARD Miguel Referring Unavailable Miguel Naik Attending Unavailable Elderbrock, Amado Primary Care Unavailable Ana Laura Hastingsa Attending Unavailable Tyson Power Attending Unavailable Herbert Cardona Referring Unavailable Elderbrock, Amado Referring Unavailable Janusz Reaves Attending Unavailable Elderbrock, Amado Primary Care Unavailable Tiffany David Attending Unavailable Elderbrock, Amado Primary Care Unavailable Leyda Erwin Referring Unavailable Leyda Erwin Attending Unavailable Elderbrock, Amado Primary Care Unavailable Elderbrock, Amado Primary Care Unavailable Leyda Erwin Referring Unavailable Leyda Erwin Attending Unavailable Elderbrock, Amado Primary Care Unavailable Leyda Erwin Referring Unavailable Leyda Erwin Attending Unavailable Leyda Brown Attending Unavailable Oscar Poole Admitting Unavailable Oscar Poole Attending Unavailable Oscar Poole Consulting Unavailable Elderbrock, Amado Primary Care Unavailable Rupali Kirkpatrick Consulting Unavailable Leyda Brown Referring Unavailable Sagar Rendon Attending Unavailable Rupali Kirkpatrick Attending Unavailable Leyda Erwin Attending Unavailable Elderbrock, Amado Primary Care Unavailable Leyda Erwin Referring Unavailable Venkata, Ana Laura Radha Attending Unavailable Oscar Poole Admitting Unavailable Oscar Poole Consulting Unavailable [facility] Unavailable Rupali Kirkpatrick Consulting Unavailable Jason, Zachery Admitting Unavailable Venkata, Ana Laura Radha Attending Unavailable Leyda Cardona Consulting Unavailable [facility] Unavailable Roosevelt Moss Consulting Unavailable James Whelan Consulting Unavailable Vinayak De [place] Consulting Unavailable Yaw Thompson Consulting Unavailable Jose Pool Consulting Unavailable Oscar Weinstein Consulting Unavailable Noe Salcido Consulting Unavailable Joni Wood Consulting Unavailable Lizbeth Avery Consulting UnavailRed Harris Consulting Unavailable Enrique Neff Consulting Unavailable Armando Rangel Consulting Unavailable Lina Fernando Consulting Unavailable Jessa Solorzano Consulting Unavailable Nilsa Hilton Consulting Unavailable Ernesto Tate Consulting Unavailable Ab Singh Consulting Unavailable Dwight Hines Consulting Unavailable Thad Cohen Consulting Unavailable Tg Waller Consulting Unavailable Jam De La Rosa Consulting Unavailable Mike Martinez Consulting Unavailable Jeromy Cleary Consulting Unavailable Anthony Dillard Consulting Unavailable Jason, Zachery Consulting Unavailable Leyda Brown Consulting Unavailable Herbert Cardona Consulting Unavailable Anjum Small Consulting Unavailabl nery Hastings, Ana Laura Radha Consulting Unavailable Sagar Rendon Consulting Unavailable Sharyn Vaughn Attending Unavail able [facility] Unavailable [facility] Unavailable Leyda Erwin Referring Unavailable Leyda Erwin Attending Unavailable Jason, Zachery Referring Unavailable Papito Gilbert Attending UnavailLeyda Minaya Attending Unavailable Venkata, Ana Laura Radha Attending Unavailable Koram, Ana Laura Radha Consulting Unavailable [facility] Referring Unavailable Lea oLza Attending Unavailable [facility] Unavailable Eduardo Figueroa Attending Unavailable Rupali Kirkpatrick Referring Unavailable [facility] Unavailable Harry Stallings Attending Unavailable [facility] Unavailable Janusz Reaves Attending Unavailable Janusz Reaves Referring Unavailable [facility] Unavailable Allergies Allergy Classification Reported Allergen(s) Allergy Type Date of Onset Reaction(s) Facility (5 sources) Angiotensin-conv erting enzyme inhibitor agent; Translations: [DIANA INHIBITORS] Propensity to adverse reactions 07-17-2005 [facility] Work Phone: (20 sources) Neomycin; Translations: [NEOMYCIN] Drug Allergy 07-17-2005 [facility] Work Phone: (20 sources) Angiotensin-conv erting enzyme inhibitor agent Propensity to adverse reactions 07-17-2005 [facility] Work Phone: Medications Current Medications Medication Drug [...] Comment on above: Take 1 capsule by [facility] once daily. dapagliflozin 10 mg oral tablet (20 sources) Sodium-Glucose Cotransporter 2 Inhibitor Start: 022 End: take 1 tablet by mouth once daily at breakfast dapagliflozin propanediol (FARXIGA) 10 mg tablet Take 1 tablet by mouth daily with breakfast. 90 tablet 3 08/28/2024 Active Comment on above: Take 1 tablet by carlo th daily with breakfast. ferrous sulfate 325 mg oral tablet (1 source) Start: 025 take 1 tablet by mouth once daily ferrous sulfate 325 mg (65 mg iron) tablet Indications: Anemia, unspecified type Take 1 tablet by mouth once daily. 30 tablet 2 12/19/2024 Active furosemide 20 mg oral tablet (20 sources) Loop Diuretic Start: 025 End: 026 take 1 tablet by mouth two times [...] long-term current use of insulin (HCC) Inject 80 Units subcutaneously daily with breakfast. 30 Pen 5 11/13/2021 Active Comment on above: Inject 80 Units subc utaneously daily with breakfast. Inject 70 Units subc utaneously daily with breakfast. Inject 70 Units subc utaneously every morning. Insulin [place], Disposable, (RELION PEN NEEDLES) 32 x 5/32 " ndle (20 sources) Start: 5 Insulin [place], Disposable, (RELION PEN NEEDLES) 32 x 5/32 [...] Take 1 tablet by carlo once daily. losartan potassium 50 mg oral tablet (20 sources) Angiotensin 2 Receptor Herb Start: End: take 1 tablet by [...] 03, 2022 10:30am 20 ml albumin human, alf 250 mg/ml injection (8 sources) Human Serum [...] days. 20 tablet 0 05/06/2024 05/16/2024 Active Anrwf-Adgq-Wfdma-Collag-Mv-M in (Champ (With Collagen)) 7-7-1.5 gram Powder In Packet (3 sources) Start: 07-18-2024 End: 08-19-2024 Nhcfg-Uszu-Qsnnp-Collag-Mv-M in (Champ (With Collagen)) 7-7-1.5 gram Powder [...] 1 tablet by carlo th twice daily. ceFAZolin (Ancef) 1,000 mg in [...] Comment on above: Take 1 tablet by [facility] once daily. docusate sodium 50 mg / sennosides, alf 8.6 mg oral tablet (3 sources) Start: [...] Discontinued 100 mg PO TWICE A DAY July 18, 2024 1:00pm August 20, 2024 [...] Per G Tube, Daily, First dose on Dalila 07/05/25 at 0900 Start: 06-02-2025 End: 06-21-2026 Start: 04-10-2024 take 1 capsule by mo uth once daily FLUoxetine (PROZAC) 10 mg capsule [...] IntraCATHeter, As needed, line care, Starting on 07/06/25 at 0936, For VENOUS lumen Start: 07-05-2025 [...] use of insulin, unspecified CKD stage (HCC) Inject 60 Units subcutaneously once daily. 30 [...] complication, with long-term current use of insulin ([facility]) INJECT 15 UNITS SUBCUTANEOUSLY THREE TIMES [...] disease, without long-term current use of insulin ([facility]) , Controlled type 2 diabetes mellitus without complication, with long-term current use of insulin ([facility]) INJECT 25 UNITS SUBCUTANEOUSLY THREE TIMES DAILY WITH MEALS DIRECTED 30 Each 3 06/06/2024 09/26/2024 Discontinued Start: 02-26-2022 End: 07-15-2022 insulin lispro (HUMALOG KWIK PEN INSULIN) 100 unit/mL Indications: Controlled type 2 diabetes mellitus without complication, with long-term current use of insulin ([facility]) INJECT 20 UNITS SUBCUTANEOUSLY THREE TIMES [...] daily, First dose on Wed07/05/25 at 0015 midodrine hydrochloride 5 mg oral [...] Topical, 3 times daily, First dose on Dalila 07/05/25 at 0930 nystatin 100 unt/mg topical powder [...] by mouth twice daily. polyethylene glycol 3350 [id number] mg powder for oral solution (4 sources) [...] Coronary atherosclerosis; Translations: [Atherosclerotic heart disease of [place] coronary artery without angina pectoris] Onset: 5 Chronic Comment on above: Transferred to [facility] 09/2013 for intervention Deficiency and other anemia [...] source) Postmenopausal bleeding; Translations: [Postmenopausal bleeding] Onset: 5 Chronic Mood disorders (2 sources) Depressive disorder; [...] source) Hypoglycemia, unspecified; Translations: [Hypoglycemia, unspecified] Onset: 4 Chronic Other gastrointestinal disorders (3 sources) History [...] of breath; Translations: [Shortness of breath] Onset: 5 Episodic Other nervous system disorders (3 sources) [...] unspecified] 08-30-2024 Chronic Peripheral and visceral atherosclerosis (9 sources) Peripheral vascular disease, unspecified; Translations: [Peripheral arterial disease] 07-18-2024 Chronic Pleurisy; pneumothorax; pulmonary collapse (3 [...] unspecified whether with hypoxia or hypercapnia] Onset: 5 Chronic Unclassified (1 source) R93.1 - Abnormal findings on diagnostic imaging of heart and coronary circulation Past or Other Problems Problem Classification Problem Date Documented Date Episodic/Chronic Acute and unspecified renal failure (17 sources) Injury of kidney; Translations: [Acute kidney failure, unspecified] Onset: 03-21-2025 Episodic Coronary atherosclerosis and other heart disease (4 sources) Presence of coronary angioplasty implant and graft; Translations: [Percutaneous transluminal coronary angioplasty status] Onset: 09-27-2013 Episodic Other aftercare (20 sources) Long-term current use of insulin; Translations: [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 faculty 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) use of insulin] Onset: 10-15-2023 10-15-2023 Episodic Other aftercare (1 source) adjunct faculty 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) use of insulin; Translations: [Type 2 [...] respiratory abnormalities] Onset: 01-29-2025 06-17-2023 Episodic Other nutritional; endocrine; and metabolic disorders [...] 02-08-2025 Episodic Skin and subcutaneous tissue infections (12 sources) Cellulitis of skin; Translations: [Cellulitis, unspecified] Onset: 03-21-2025 04-10-2024 Episodic Unclassified (2 sources) Pressure injury of sacral region, stage 3 (HCC) 06-21-2025 Urinary tract infections (4 sources) Urinary tract infectious disease; Translations: [Urinary tract infection, site not specified] Onset: 03-21-2025 02-05-2025 Episodic Results Test Name Value Interpretation Reference Range Facility Basic Metabolic Profile (BMP )on 07-16-2025 BUN/CRE 21.2 RATIO High 07-16 [facility] Comment on above: Order Comment: 405.2 Performed By: #### L 500.2500, L100.0500 ####[facility] [address] [place], [address] Calcium [Mass/Vol] 10.0 mg/dL Normal 7.6-11.0 [facility] Comment on above: Order Comment: 405.2 Performed By: #### L 500.2500, L100.0500 ####[facility] [address] [place], [address] Chloride [Moles/Vol] 89 mmol/L Low 98-108 [facility] Comment on above: Order Comment: 405.2 Performed By: #### L 500.2500, L100.0500 ####[facility] [address] [place], [address] CO2 [Moles/Vol] 30.7 mmol/L Normal 21.0-32.0 [facility] Comment on above: Order Comment: 405.2 Performed By: #### L 500.2500, L100.0500 ####[facility] [address] [place], [address] Creatinine [Mass/Vol] 3.85 mg/dL High 0.70-1.20 [facility] Comment on above: Order Comment: 405.2 Performed By: #### L 500.2500, L100.0500 ####[facility] [address] [place], [address] GAP 13 Normal 5-15 [facility] Comment on above: Order Comment: 405.2 Performed By: #### L 500.2500, L100.0500 ####[facility] [address] [place], [address] GFR/1.73 sq M.predicted among non-blacks MDRD (S/P/Bld) [Vol rate/Area] 12 mL/min/{1.73_m2} Low >60 [facility] Comment on above: Order Comment: 405.2 Result Comment: mL/m in/1.73m2 CKD-EPI Creatinine Equation (2020) Performed By: #### L 500.2500, L100.0500 ####[facility] [address] [place], [address] Glucose [Mass/Vol] 234 mg/dL High 70-99 [facility] Comment on above: Order Comment: 405.2 Performed By: #### L 500.2500, L100.0500 ####[facility] [address] [place], [address] Potassium [Moles/Vol] 3.8 mmol/L Normal 3.3-5.1 [facility] Comment on above: Order Comment: 405.2 Performed By: #### L 500.2500, L100.0500 ####[facility] [address] [place], [address] Sodium [Moles/Vol] 133 mmol/L Normal 133-145 [facility] Comment on above: Order Comment: 405.2 Performed By: #### L 500.2500, L100.0500 ####[facility] [address] [place], [address] Urea nitrogen [Mass/Vol] 82 mg/dL High 4-19 [facility] Comment on above: Order Comment: 405.2 Performed By: #### L 500.2500, L100.0500 ####[facility] [address] [place], [address] CBC-Complete Blood Cnt No Di ffon 07-16-2025 Erythrocyte distribution width (RBC) [Ratio] 17.5 % High 11.6-14.6 [facility] Comment on above: Order Comment: 405.2 Performed By: #### L 500.2500, L100.0500 ####[facility] [address] [place], [address] Hematocrit (Bld) [Volume fraction] 24.6 % Low 37-47 [facility] Comment on above: Order Comment: 405.2 Performed By: #### L 500.2500, L100.0500 ####[facility] [address] [place], [address] Hemoglobin (Bld) [Mass/Vol] 7.7 g/dL Low 12.0-15.0 [facility] Comment on above: Order Comment: 405.2 Performed By: #### L 500.2500, L100.0500 ####[facility] [address] [place], [address] MCH (RBC) [Entitic mass] 26.9 pg Low 27.0-32.0 [facility] Comment on above: Order Comment: 405.2 Performed By: #### L 500.2500, L100.0500 ####[facility] [address] [place], [address] MCHC (RBC) [Mass/Vol] 31.3 g/dL Low 32-36 [facility] Comment on above: Order Comment: 405.2 Performed By: #### L 500.2500, L100.0500 ####[facility] [address] [place], [address] MCV (RBC) [Entitic vol] 86.0 fL Normal 81-99 [facility] Comment on above: Order Comment: 405.2 Performed By: #### L 500.2500, L100.0500 ####[facility] [address] [place], [address] Platelet mean volume (Bld) [Entitic vol] 10.1 fL Normal 6.2-12.0 [facility] Comment on above: Order Comment: 405.2 Performed By: #### L 500.2500, L100.0500 ####[facility] [address] [place], [address] Platelets (Bld) [#/Vol] 234 10*3/uL Normal 150-450 [facility] Comment on above: Order Comment: 405.2 Performed By: #### L 500.2500, L100.0500 ####[facility] [address] [place], [address] RBC (Bld) [#/Vol] 2.86 10*6/uL Low 4.2-5.4 [facility] Comment on above: Order Comment: 405.2 Performed By: #### L 500.2500, L100.0500 ####[facility] [address] [place], [address] RDW SD 55.4 fl High 35.1-43.9 [facility] Comment on above: Order Comment: 405.2 Performed By: #### L 500.2500, L100.0500 ####[facility] [address] [place], [address] WBC (Bld) [#/Vol] 7.2 10*3/uL Normal 4.4-11.0 [facility] Comment on above: Order Comment: 405.2 Performed By: #### L 500.2500, L100.0500 ####[facility] [address] [place], [address] [id number] 07-06-2025 [id number] [facility] [id number] [facility] CBC (HEMOGRAM)on 07-06-2025 Erythrocyte distribution width (RBC) [Ratio] 19.4 % High 11.5-15.0 [facility] Comment on above: Performed By: #### L AB294 ####Cardboard Inserter: VASHTI BAILEY ([id number])[facility])[address] [place] [address] Hematocrit (Bld) [Volume fraction] 24.3 % Low 35.0-47.0 [facility] Comment on above: Performed By: #### L AB294 ####Cardboard Inserter: VASHTI BAILEY ([id number])[facility])[address] [place] [address] Hemoglobin (Bld) [Mass/Vol] 7.7 g/dL Low 11.7-16.0 [facility] Comment on above: Performed By: #### L AB294 ####Cardboard Inserter: VASHTI BAILEY ([id number])[facility] [facility] ([facility])[address] [place] [address] MCH (RBC) [Entitic mass] 27.5 pg Normal 26.0-34.0 [facility] Comment on above: Performed By: #### L [id number] ####Cardboard Inserter: VASHTI BAILEY ([phone])[facility])[address] [place] [address] MCHC 31.7 % Normal 30.5-36.0 [facility] Comment on above: Performed By: #### L [id number] ####Cardboard Inserter: VASHTI BAILEY ([phone])[facility] ([facility])[address] [place] [address] MCV (RBC) [Entitic vol] 86.8 fL Normal 77.0-99.0 S [facility] Comment on above: Performed By: #### L [id number] ####Cardboard Inserter: VASHTI BAILEY ([phone])[facility])[address] [place] [address] Platelet mean volume (Bld) [Entitic vol] 10.0 fL Normal 9.0-12.7 [facility] Comment on above: Performed By: #### L [id number] ####Cardboard Inserter: VASHTI BAILEY ([phone])[facility] ([facility])[address] [place] [address] Platelets (Bld) [#/Vol] 190 10*3/uL Normal 140-440 [facility] Comment on above: Performed By: #### L [id number] ####Cardboard Inserter: VASHTI BAILEY ([phone])[facility] ([facility])[address] [place] [address] RBC (Bld) [#/Vol] 2.80 10*6/uL Low 3.80-5.20 [facility] Comment on above: Performed By: #### L [id number] ####Cardboard Inserter: VASHTI BAILEY ([phone])[facility] ([facility])[address] [place] [address] WBC (Bld) [#/Vol] 7.8 10*3/uL Normal 3.6-10.7 [facility] Comment on above: Performed By: #### L [id number] ####Cardboard Inserter: VASHTI BAILEY ([phone])[facility] ([facility])[address] [place] [address] CBC panel Auto (Bld)on 07-06 Erythrocyte distribution width (RBC) [Ratio] 19.4 % High 11.5 - 15.0 % [facility] Hematocrit (Bld) [Volume fraction] 24.3 % Low 35.0 - 47.0 % [facility] Hemoglobin (Bld) [Mass/Vol] 7.7 g/dL Low 11.7 - 16.0 g/dL [facility] Interpretation and review of laboratory results Abnormal [facility] MCH (RBC) [Entitic mass] 27.5 pg 26.0 - 34.0 pg [facility] MCHC (RBC) [Mass/Vol] 31.7 % 30.5 - 36.0 % [facility] MCV (RBC) [Entitic vol] 86.8 fL 77.0 - 99.0 fL [facility] Platelet mean volume (Bld) [Entitic vol] 10 fL 9.0 - 12.7 fL [facility] Platelets (Bld) [#/Vol] 190 10*3/uL 140 - 440 10*3/uL [facility] RBC (Bld) [#/Vol] 2.8 10*6/uL Low 3.80 - 5.2 0 10*6/uL [facility] WBC (Bld) [#/Vol] 7.8 10*3/uL 3.6 - 10.7 10*3/uL [facility] Laboratory - Chemistry and C hemistry - challengeOrdered By: Holly Brown on 07-06-2025 Albumin [Mass/Vol] 2.6 g/dL Low 3.4 - 4.8 g/dL [facility] Anion gap [Moles/Vol] 10 mmol/L 3 - 13 mmol/L [facility] Calcium [Mass/Vol] 9.3 mg/dL 8.8 - 10. 0 mg/dL [facility] Chloride [Moles/Vol] 99 mmol/L 98 - 10 7 mmol/L [facility] CO2 [Moles/Vol] 27 mmol/L 23 - 31 mmol/L [facility] Creatinine [Mass/Vol] 3.36 mg/dL High 0.57 - 1.11 mg/dL [facility] GFR/1.73 sq M.predicted (S/P/Bld) [Vol rate/Area] 13.6 mL/min Low - PINF [facility] Comment on above: Calculation based on the Chronic Kidney Disease Epidemiology Collaboration (CKD-EPI) equation refit without adjustment for race Glucose [Mass/Vol] 89 mg/dL 82 - 115 mg/dL [facility] Phosphate [Mass/Vol] 3.3 mg/dL 2.3 - 4 .7 mg/dL [facility] Potassium [Moles/Vol] 4 mmol/L 3.5 - 5.1 mmol/L [facility] Comment on above: Plasma potassium andrae ues may be up to 0.5 mmol/L lower than serum values. Sodium [Moles/Vol] 136 mmol/L 136 - 145 mmol/L [facility] Urea nitrogen [Mass/Vol] 64 mg/dL High 9 - 23 mg/dL [facility] No Panel InformationOrdered By: Holly Brown on 07-06-2025 Interpretation and review of laboratory results Abnormal [facility] Nursing Noteon 07-06-2025 Nursing Note Normal [facility] Nursing Note Pt is confused at baseline , pt is from a SNF pt has son who cares for her as well. Normal [facility] Nursing Note Normal [facility] Progress Noteon 07-06-2025 Progress Note Normal [facility] Progress Note Normal [facility] RENAL FUNCTION PANELon 07-06 Albumin [Mass/Vol] 2.6 g/dL Low 3.4-4.8 [facility] Comment on above: Performed By: #### L [id number] ####Cardboard Inserter: VASHTI BAILEY ([phone])[facility] ([facility])[address] [place] [address] Anion gap [Moles/Vol] 10 mmol/L Normal 3-13 [facility] Comment on above: Performed By: #### L [id number] ####Cardboard Inserter: VASHTI BAILEY ([phone])[facility] ([facility])[address] [place] [address] Calcium [Mass/Vol] 9.3 mg/dL Normal 8.8-10.0 [facility] Comment on above: Performed By: #### L [id number] ####Cardboard Inserter: VASHTI BAILEY ([phone])[facility] ([facility])[address] [place] [address] [place] Chloride [Moles/Vol] 99 mmol/L Normal 98-107 [facility] Comment on above: Performed By: #### L [id number] ####Cardboard Inserter: VASHTI BAILEY ([phone])[facility] ([facility])[address] [place] [address] [place] CO2 [Moles/Vol] 27 mmol/L Normal 23-31 [facility] Comment on above: Performed By: #### L [id number] ####Cardboard Inserter: VASHTI BAILEY ([phone])[facility] ([facility])[address] [place] [address] Creatinine [Mass/Vol] 3.36 mg/dL High 0.57-1.11 [facility] Comment on above: Performed By: #### L [id number] ####Cardboard Inserter: VASHTI BAILEY ([phone])[facility])[address] [place] [address] [place] GLOMERULAR FILTRATION RATE ML/MIN/1.73 SQ M.PREDICTED 13.6 mL/min/1.73m*2 Low >60.0 [facility] Comment on above: Result Comment: Calc ulation based on the Chronic Kidney Disease Epidemiology Collaboration (CKD-EPI) equation refit without adjustment for race Performed By: #### L [id number] ####Cardboard Inserter: VASHTI BAILEY ([phone])[facility] ([facility])[address] [place] [address] [place] Glucose [Mass/Vol] 89 mg/dL Normal 82-115 [facility] Comment on above: Performed By: #### L [id number] ####Cardboard Inserter: VASHTI BAILEY ([id number])[facility])[address] [place] [address] [place] Phosphate [Mass/Vol] 3.3 mg/dL Normal 2.3-4.7 [facility] Comment on above: Performed By: #### L [id number] ####Cardboard Inserter: VASHTI BAILEY ([id number])[facility])[address] [place] [address] [place] Potassium [Moles/Vol] 4.0 mmol/L Normal 3.5-5.1 [facility] Comment on above: Result Comment: [facility] potassium values may be up to 0.5 mmol/L lower than serum values. Performed By: #### L [id number] ####Cardboard Inserter: VASHTI BAILEY ([phone])[facility] ([facility])[address] [place] [address] [place] Sodium [Moles/Vol] 136 mmol/L Normal 136-145 [facility] Comment on above: Performed By: #### L [id number] ####Cardboard Inserter: VASHTI BAILEY ([phone])[facility])[address] [place] [address] [place] Urea nitrogen [Mass/Vol] 64 mg/dL High 9-23 [facility] Comment on above: Performed By: #### L [id number] ####Cardboard Inserter: VASHTI BAILEY ([phone])[facility] ([facility])[address] [place] [address] XR CHEST 1 VIEWon 07-06-2025 XR CHEST 1 VIEW Normal [facility] XR Chest Single viewon 07-06 Moderate-sized bilateral pleural effusions. Right-sided pleural effusion is increased in size compared to 07/03/2025. Report Dictated on Electronically Signed By: Juancarlos Oneal MD Electronically Signed Date/Time: 07/06/2025 2:50 PM EDT [facility] Patient Name: ROSA MYERS : 1950 Exam [...] tunneled dialysis catheter in unchanged position. OTHER: [facility] Lillian Oneal MD - 07/06/2025 Patient Name: [...] Electronically Signed Date/Time: 07/06/2025 2:50 PM EDT [facility] Radiology Study observation (narrative) [facility] XR Chest Single viewOrdered By: Lillian Oneal on 07-06-2025 [facility] Work Phone: [phone] [id number] Normal [facility] [id number] Normal [facility] C. DIFFICILE BY PCR WITH REF ALYSSA TO EIAon 07-05-2025 C. DIFFICILE BY PCR WITH REFLEX TO EIA Normal [facility] Comment on above: Performed By: #### L [id number], [id number] ####Cardboard Inserter: VASHTI BAILEY ([phone])[facility] ([address] C. difficile toxin A+B tcdA+ tcdB genes PATEL+probe Ql (Stl)Ordered By: Nihtya Carrasquillo on 07-05-2025 C difficile Toxins A+B, EIA Negative Negative [facility] Interpretation and review of laboratory results Normal [facility] Results indicate colonization with C. Difficile. Correlate with clinical data and/or consider other causes for symptoms. Methodology: Enzyme Immunoassay [facility] C. difficile toxin genes PATEL +probe Ql (Stl)on 07-05-2025 C. difficile toxin B tcdB gene PATEL+probe Ql (Stl) Detected Abnormal Not Detected [facility] Interpretation and review of laboratory results Abnormal [facility] This test screens fo r possible C. difficile infection. Additional testing is required and has been ordered by Laboratory. See C. difficile Toxins EIA for final results. Additional charges apply. Methodology: Real-time PCR [facility] CBC W Auto Differential pane l (Bld)on 07-05-2025 Basophils (Bld) [#/Vol] 0.1 10*3/uL 0.0 - 0.2 10*3/uL [facility] Basophils/100 WBC (Bld) 0.7 % 0.0 - 2.0 % [facility] Eosinophils (Bld) [#/Vol] 0.2 10*3/uL 0.0 - 0.5 10*3/uL [facility] Eosinophils/100 WBC (Bld) 3.1 % 0.0 - 6.0 % [facility] Erythrocyte distribution width (RBC) [Ratio] 19.6 % High 11.5 - 15.0 % [facility] Hematocrit (Bld) [Volume fraction] 23.4 % Low 35.0 - 47.0 % [facility] Hemoglobin (Bld) [Mass/Vol] 7.4 g/dL Low 11.7 - 16.0 g/dL [facility] Immature granulocytes (Bld) [#/Vol] 0.1 10*3/uL High NINF - 0.1 10*3/uL [facility] Immature granulocytes/100 WBC (Bld) 0.7 % 0.0 - 2.0 % [facility] Interpretation and review of laboratory results Abnormal [facility] Lymphocytes (Bld) [#/Vol] 0.9 10*3/uL Low 1.0 - 4.3 10*3/uL [facility] Lymphocytes/100 WBC (Bld) 13.7 % Low 15.0 - 45.0 % [facility] MCH (RBC) [Entitic mass] 27.1 pg 26.0 - 34.0 pg [facility] MCHC (RBC) [Mass/Vol] 31.6 % 30.5 - 36.0 % [facility] MCV (RBC) [Entitic vol] 85.7 fL 77.0 - 99.0 fL [facility] Monocytes (Bld) [#/Vol] 0.8 10*3/uL 0.0 - 0.9 10*3/uL [facility] Monocytes/100 WBC (Bld) 11.9 % 5.0 - 13.0 % [facility] Neutrophils (Bld) [#/Vol] 4.7 10*3/uL 1.8 - 7.5 10*3/uL [facility] Neutrophils/100 WBC (Bld) 69.9 % 38.0 - 82.0 % [facility] Nucleated RBC/100 WBC (Bld) [Ratio] 0 % [facility] Platelet mean volume (Bld) [Entitic vol] 10.3 fL 9.0 - 12.7 fL [facility] Platelets (Bld) [#/Vol] 179 10*3/uL 140 - 440 10*3/uL [facility] RBC (Bld) [#/Vol] 2.73 10*6/uL Low 3.80 - 5.2 0 10*6/uL [facility] WBC (Bld) [#/Vol] 6.8 10*3/uL 3.6 - 10.7 10*3/uL [facility] CBC WITH AUTO DIFFERENTIALon 07-05-2025 Basophils (Bld) [#/Vol] 0.1 10*3/uL Normal 0.0-0.2 [facility] Comment on above: Performed By: #### L [id number] ####Cardboard Inserter: VASHTI BAILEY ([phone])[facility])[address] [place] [address] Basophils/100 WBC (Bld) 0.7 % Normal 0.0-2.0 [facility] Comment on above: Performed By: #### L [id number] ####Cardboard Inserter: VASHTI BAILEY ([phone])[facility])[address] [place] [address] Eosinophils (Bld) [#/Vol] 0.2 10*3/uL Normal 0.0-0.5 [facility] Comment on above: Performed By: #### L [id number] ####Cardboard Inserter: VASHTI BAILEY ([phone])[facility])[address] [place] [address] Eosinophils/100 WBC (Bld) 3.1 % Normal 0.0-6.0 [facility] Comment on above: Performed By: #### L [id number] ####Cardboard Inserter: VASHTI BAILEY ([id number])[facility])[address] [place] [address] Erythrocyte distribution width (RBC) [Ratio] 19.6 % High 11.5-15.0 [facility] Comment on above: Performed By: #### L [id number] ####Cardboard Inserter: VASHTI BAILEY ([phone])[facility])[address] [place] [address] Hematocrit (Bld) [Volume fraction] 23.4 % Low 35.0-47.0 [facility] Comment on above: Performed By: #### L [id number] ####Cardboard Inserter: VASHTI BAILEY ([phone])[facility])[address] [place] [address] Hemoglobin (Bld) [Mass/Vol] 7.4 g/dL Low 11.7-16.0 [facility] Comment on above: Performed By: #### L [id number] ####Cardboard Inserter: VASHTI BAILEY ([id number])[facility])[address] [place] [address] IMMATURE GRANS % 0.7 % Normal 0.0-2.0 [facility] Comment on above: Performed By: #### L [id number] ####Cardboard Inserter: VASHTI BAILEY ([phone])[facility])[address] [place] [address] IMMATURE GRANS ABSOLUTE 0.1 10*3/uL High <0.1 [facility] Comment on above: Performed By: #### L [id number] ####Cardboard Inserter: VASHTI BAILEY ([phone])[facility])[address] [place] [address] Lymphocytes (Bld) [#/Vol] 0.9 10*3/uL Low 1.0-4.3 [facility] Comment on above: Performed By: #### L [id number] ####Cardboard Inserter: VASHTI BAILEY ([phone])[facility])[address] [place] [address] Lymphocytes/100 WBC (Bld) 13.7 % Low 15.0-45.0 [facility] Comment on above: Performed By: #### L [id number] ####Cardboard Inserter: VASHTI BAILEY ([id number])[facility] ([facility])[address] [place] [address] MCH (RBC) [Entitic mass] 27.1 pg Normal 26.0-34.0 [facility] Comment on above: Performed By: #### L [id number] ####Cardboard Inserter: VASHTI BAILEY ([id number])[facility])[address] [place] [address] MCHC 31.6 % Normal 30.5-36.0 [facility] Comment on above: Performed By: #### L [id number] ####Cardboard Inserter: VASHTI BAILEY ([phone])[facility])[address] [place] [address] MCV (RBC) [Entitic vol] 85.7 fL Normal 77.0-99.0 [facility] Comment on above: Performed By: #### L [id number] ####Cardboard Inserter: VASHTI BAILEY ([id number])[facility] ([facility])[address] [place] [address] Monocytes (Bld) [#/Vol] 0.8 10*3/uL Normal 0.0-0.9 [facility] Comment on above: Performed By: #### L [id number] ####Cardboard Inserter: VASHTI BAILEY ([id number])[facility] ([facility])[address] [place] [address] Monocytes/100 WBC (Bld) 11.9 % Normal 5.0-13.0 [facility] Comment on above: Performed By: #### L [id number] ####Cardboard Inserter: VASHTI BAILEY ([id number])[facility] ([facility])[address] [place] [address] NEUTROPHILS ABSOLUTE 4.7 10*3/uL Normal 1.8-7.5 [facility] Comment on above: Performed By: #### L [id number] ####Cardboard Inserter: VASHTI BAILEY ([id number])[facility])[address] [place] [address] [place] Neutrophils/100 WBC (Bld) 69.9 % Normal 38.0-82.0 [facility] Comment on above: Performed By: #### L [id number] ####Cardboard Inserter: VASHTI BAILEY ([phone])[facility] ([facility])[address] [place] [address] NRBC 0.0 /100 WBCs Normal 0.0-2.0 [facility] Comment on above: Performed By: #### L [id number] ####Cardboard Inserter: VASHTI BAILEY ([phone])[facility] ([facility])[address] [place] [address] Platelet mean volume (Bld) [Entitic vol] 10.3 fL Normal 9.0-12.7 [facility] Comment on above: Performed By: #### L [id number] ####Cardboard Inserter: VASHTI BAILEY ([id number])[facility] ([facility])[address] [place] [address] [place] Platelets (Bld) [#/Vol] 179 10*3/uL Normal 140-440 [facility] Comment on above: Performed By: #### L [id number] ####Cardboard Inserter: VASHTI BAILEY ([phone])[facility] ([facility])[address] [place] [address] RBC (Bld) [#/Vol] 2.73 10*6/uL Low 3.80-5.20 [facility] Comment on above: Performed By: #### L [id number] ####Cardboard Inserter: VASHTI BAILEY ([id number])[facility] ([facility])[address] [place] [address] [place] WBC (Bld) [#/Vol] 6.8 10*3/uL Normal 3.6-10.7 [facility] Comment on above: Performed By: #### L [id number] ####Cardboard Inserter: VASHTI BAILEY ([phone])[facility] ([facility])[address] [place] [address] [place] COMPREHENSIVE METABOLIC PANE Florentin 07-05-2025 Albumin [Mass/Vol] 2.5 g/dL Low 3.4-4.8 [facility] Comment on above: Performed By: #### L [id number] ####Cardboard Inserter: VASHTI BAILEY ([id number])[facility] ([facility])[address] [place] [address] ALP [Catalytic activity/Vol] 121 U/L Normal 40-150 [facility] Comment on above: Performed By: #### L [id number] ####Cardboard Inserter: VASHTI BAILEY ([id number])[facility] ([facility])[address] [place] [address] ALT [Catalytic activity/Vol] 21 U/L Normal <30 [facility] Comment on above: Performed By: #### L [id number] ####Cardboard Inserter: VASHTI BAILEY ([phone])[facility] ([facility])[address] [place] [address] Anion gap [Moles/Vol] 11 mmol/L Normal 3-13 [facility] Comment on above: Performed By: #### L [id number] ####Cardboard Inserter: VASHTI BAILEY ([phone])[facility] ([facility])[address] [place] [address] AST [Catalytic activity/Vol] 32 U/L Normal <34 [facility] Comment on above: Performed By: #### L [id number] ####Cardboard Inserter: VASHTI BAILEY ([phone])[facility] ([facility])[address] [place] [address] Bilirubin [Mass/Vol] 0.6 mg/dL Normal <1.2 [facility] Comment on above: Performed By: #### L [id number] ####Cardboard Inserter: VASHTI BAILEY ([phone])[facility] ([facility])[address] [place] [address] Calcium [Mass/Vol] 9.7 mg/dL Normal 8.8-10.0 [facility] Comment on above: Performed By: #### L [id number] ####Cardboard Inserter: VASHTI BAILEY ([phone])[facility] ([facility])[address] [place] [address] Chloride [Moles/Vol] 92 mmol/L Low 98-107 [facility] Comment on above: Performed By: #### L [id number] ####Cardboard Inserter: VASHTI BAILEY ([id number])[facility] ([facility])[address] [place] [address] CO2 [Moles/Vol] 29 mmol/L Normal 23-31 [facility] Comment on above: Performed By: #### L [id number] ####Cardboard Inserter: VASHTI BAILEY ([id number])[facility] ([facility])[address] [place] [address] Creatinine [Mass/Vol] 5.26 mg/dL High 0.57-1.11 [facility] Comment on above: Performed By: #### L [id number] ####Cardboard Inserter: VASHTI BAILEY ([phone])[facility] ([facility])[address] [place] [address] GLOMERULAR FILTRATION RATE ML/MIN/1.73 SQ M.PREDICTED 7.9 mL/min/1.73m*2 Low >60.0 [facility] Comment on above: Result Comment: Calc ulation based on the Chronic Kidney Disease Epidemiology Collaboration (CKD-EPI) equation refit without adjustment for race Performed By: #### L [id number] ####Cardboard Inserter: VASHTI BAILEY ([phone])[facility] ([facility])[address] [place] [address] Glucose [Mass/Vol] 97 mg/dL Normal 82-115 [facility] Comment on above: Performed By: #### L [id number] ####Cardboard Inserter: VASHTI BAILEY ([phone])[facility] ([facility])[address] [place] [address] Potassium [Moles/Vol] 4.2 mmol/L Normal 3.5-5.1 [facility] Comment on above: Result Comment: [facility] potassium values may be up to 0.5 mmol/L lower than serum values. Performed By: #### L [id number] ####Cardboard Inserter: VASHTI BAILEY ([id number])[facility])[address] [place] [address] Protein [Mass/Vol] 6.5 g/dL Normal 6.4-8.3 [facility] Comment on above: Performed By: #### L [id number] ####Cardboard Inserter: VASHTI BAILEY ([id number])[facility] ([facility])[address] [place] [address] Sodium [Moles/Vol] 132 mmol/L Low 136-145 [facility] Comment on above: Performed By: #### L [id number] ####Cardboard Inserter: VASHTI BAILEY ([id number])[facility] ([facility])[address] [place] [address] Urea nitrogen [Mass/Vol] 125 mg/dL High 9-23 [facility] Comment on above: Performed By: #### L [id number] ####Cardboard Inserter: VASHTI BAILEY ([id number])[facility] ([facility])[address] [place] [address] Comprehensive metabolic 1998 panelon 07-05-2025 Albumin [Mass/Vol] 2.5 g/dL Low 3.4 - 4.8 g/dL [facility] ALP [Catalytic activity/Vol] 121 U/L 40 - 150 U/L [facility] ALT [Catalytic activity/Vol] [facility] Anion gap [Moles/Vol] 11 mmol/L 3 - 13 mmol/L [facility] AST [Catalytic activity/Vol] 32 U/L NINF - 34 U/L [facility] Bilirubin [Mass/Vol] 0.6 mg/dL NINF - 1.2 mg/dL [facility] Calcium [Mass/Vol] 9.7 mg/dL 8.8 - 10. 0 mg/dL [facility] Chloride [Moles/Vol] 92 mmol/L Low 98 - 10 7 mmol/L [facility] CO2 [Moles/Vol] 29 mmol/L 23 - 31 mmol/L [facility] Creatinine [Mass/Vol] 5.26 mg/dL High 0.57 - 1.11 mg/dL [facility] GFR/1.73 sq M.predicted (S/P/Bld) [Vol rate/Area] 7.9 mL/min Low - PINF [facility] Comment on above: Calculation based on the Chronic Kidney Disease Epidemiology Collaboration (CKD-EPI) equation refit without adjustment for race Glucose [Mass/Vol] 97 mg/dL 82 - 115 mg/dL [facility] Interpretation and review of laboratory results Abnormal [facility] Potassium [Moles/Vol] 4.2 mmol/L 3.5 - 5.1 mmol/L [facility] Comment on above: Plasma potassium andrae ues may be up to 0.5 mmol/L lower than serum values. Protein [Mass/Vol] 6.5 g/dL 6.4 - 8.3 g/dL [facility] Sodium [Moles/Vol] 132 mmol/L Low 136 - 145 mmol/L [facility] Urea nitrogen [Mass/Vol] 125 mg/dL High 9 - 23 mg/dL [facility] Health Consulton 07-05-2025 Consult Normal [facility] Consult Normal [facility] LAB ONLY - C DIFF EIAon LAB ONLY - C DIFF EIA Normal [facility] Comment on above: Performed By: #### L [id number], [id number] ####Cardboard Inserter: VASHTI BAILEY ([phone])[facility] ([facility])[address] [place] [address] Laboratory - Chemistry and C hemistry - challengeon 07-05-2025 Glucose [Mass/Vol] 140 mg/dL High 70 - 100 mg/dL [facility] Glucose [Mass/Vol] 182 mg/dL High 70 - 100 mg/dL [facility] Glucose [Mass/Vol] 131 mg/dL High 70 - 100 mg/dL [facility] Glucose [Mass/Vol] 91 mg/dL 70 - 100 mg/dL [facility] No Panel Informationon 07-05 Interpretation and review of laboratory results Abnormal [facility] Performed by: [address] [address] CLIA ID: [id number] [facility] Interpretation and review of laboratory results Abnormal [facility] Performed by: [address] [address] CLIA ID: [id number] [facility] Interpretation and review of laboratory results Abnormal [facility] Performed by: [address] [address] CLIA ID: [id number] [facility] Interpretation and review of laboratory results Normal [facility] Performed by: [facility], [address] [place] [id number] CLIA ID: [id number] [facility] Nursing Noteon 07-05-2025 Nursing Note Patient bleeding fro m old IV site. Changed patient's gown, linens. Also rolled new pull pad under patient. No kinks in FMS. Normal [facility] Nursing Note Normal [facility] Nursing Note Normal [facility] Progress Noteon 07-05-2025 Progress Note Normal [facility] Progress Note Normal [facility] CBC W Auto Differential pane l (Bld)on 07-04-2025 Basophils (Bld) [#/Vol] 0.1 10*3/uL 0.0 - 0.2 10*3/uL [facility] Basophils/100 WBC (Bld) 0.7 % 0.0 - 2.0 % [facility] Eosinophils (Bld) [#/Vol] 0.2 10*3/uL 0.0 - 0.5 10*3/uL [facility] Eosinophils/100 WBC (Bld) 2.4 % 0.0 - 6.0 % [facility] Erythrocyte distribution width (RBC) [Ratio] 19.6 % High 11.5 - 15.0 % [facility] Hematocrit (Bld) [Volume fraction] 24.7 % Low 35.0 - 47.0 % [facility] Hemoglobin (Bld) [Mass/Vol] 7.9 g/dL Low 11.7 - 16.0 g/dL [facility] Immature granulocytes (Bld) [#/Vol] 0 10*3/uL NINF - 0.1 10*3/uL [facility] Immature granulocytes/100 WBC (Bld) 0.5 % 0.0 - 2.0 % [facility] Interpretation and review of laboratory results Abnormal [facility] Lymphocytes (Bld) [#/Vol] 0.9 10*3/uL Low 1.0 - 4.3 10*3/uL [facility] Lymphocytes/100 WBC (Bld) 12.5 % Low 15.0 - 45.0 % [facility] MCH (RBC) [Entitic mass] 27.1 pg 26.0 - 34.0 pg [facility] MCHC (RBC) [Mass/Vol] 32 % 30.5 - 36.0 % [facility] MCV (RBC) [Entitic vol] 84.6 fL 77.0 - 99.0 fL [facility] Monocytes (Bld) [#/Vol] 0.8 10*3/uL 0.0 - 0.9 10*3/uL [facility] Monocytes/100 WBC (Bld) 10.3 % 5.0 - 13.0 % [facility] Neutrophils (Bld) [#/Vol] 5.4 10*3/uL 1.8 - 7.5 10*3/uL [facility] Neutrophils/100 WBC (Bld) 73.6 % 38.0 - 82.0 % [facility] Nucleated RBC/100 WBC (Bld) [Ratio] 0 % [facility] Platelet mean volume (Bld) [Entitic vol] 10 fL 9.0 - 12.7 fL [facility] Platelets (Bld) [#/Vol] 171 10*3/uL 140 - 440 10*3/uL [facility] RBC (Bld) [#/Vol] 2.92 10*6/uL Low 3.80 - 5.2 0 10*6/uL [facility] WBC (Bld) [#/Vol] 7.4 10*3/uL 3.6 - 10.7 10*3/uL [facility] CBC WITH AUTO DIFFERENTIALon 07-04-2025 Basophils (Bld) [#/Vol] 0.1 10*3/uL Normal 0.0-0.2 [facility] Comment on above: Performed By: #### L [id number] ####Cardboard Inserter: VASHTI BAILEY ([id number])[facility] ([facility])[address] [place] [address] Basophils/100 WBC (Bld) 0.7 % Normal 0.0-2.0 [facility] Comment on above: Performed By: #### L [id number] ####Cardboard Inserter: VASHTI BAILEY ([id number])[facility] ([facility])[address] [place] [address] Eosinophils (Bld) [#/Vol] 0.2 10*3/uL Normal 0.0-0.5 [facility] Comment on above: Performed By: #### L [id number] ####Cardboard Inserter: VASHTI BAILEY ([id number])[facility])[address] [place] [address] Eosinophils/100 WBC (Bld) 2.4 % Normal 0.0-6.0 [facility] Comment on above: Performed By: #### L [id number] ####Cardboard Inserter: VASHTI BAILEY ([phone])[facility])[address] [place] [address] Erythrocyte distribution width (RBC) [Ratio] 19.6 % High 11.5-15.0 [facility] Comment on above: Performed By: #### L [id number] ####Cardboard Inserter: VASHTI BAILEY ([id number])[facility])[address] [place] [address] Hematocrit (Bld) [Volume fraction] 24.7 % Low 35.0-47.0 [facility] Comment on above: Performed By: #### L [id number] ####Cardboard Inserter: VASHTI BAILEY ([id number])[address] Hemoglobin (Bld) [Mass/Vol] 7.9 g/dL Low 11.7-16.0 [facility] Comment on above: Performed By: #### L [id number] ####Cardboard Inserter: VASHTI BAILEY ([id number])[facility])[address] [place] [address] IMMATURE GRANS % 0.5 % Normal 0.0-2.0 [facility] Comment on above: Performed By: #### L [id number] ####Cardboard Inserter: VASHTI BAILEY ([id number])[facility])[address] [place] [address] IMMATURE GRANS ABSOLUTE 0.0 10*3/uL Normal <0.1 [facility] Comment on above: Performed By: #### L [id number] ####Cardboard Inserter: VASHTI BAILEY ([id number])[facility])[address] [place] [address] Lymphocytes (Bld) [#/Vol] 0.9 10*3/uL Low 1.0-4.3 [facility] Comment on above: Performed By: #### L [id number] ####Cardboard Inserter: VASHTI BAILEY ([phone])[facility])[address] [place] [address] Lymphocytes/100 WBC (Bld) 12.5 % Low 15.0-45.0 [facility] Comment on above: Performed By: #### L [id number] ####Cardboard Inserter: VASHTI BAILEY ([phone])[facility])[address] [place] [address] MCH (RBC) [Entitic mass] 27.1 pg Normal 26.0-34.0 [facility] Comment on above: Performed By: #### L [id number] ####Cardboard Inserter: VASHTI BAILEY ([phone])[facility])[address] [place] [address] MCHC 32.0 % Normal 30.5-36.0 [facility] Comment on above: Performed By: #### L [id number] ####Cardboard Inserter: VASHTI BAILEY ([phone])[facility])[address] [place] [address] MCV (RBC) [Entitic vol] 84.6 fL Normal 77.0-99.0 [facility] Comment on above: Performed By: #### L [id number] ####Cardboard Inserter: VASHTI BAILEY ([id number])[facility])[address] [place] [address] Monocytes (Bld) [#/Vol] 0.8 10*3/uL Normal 0.0-0.9 [facility] Comment on above: Performed By: #### L [id number] ####Cardboard Inserter: VASHTI BAILEY ([id number])[facility] [place] [address] Monocytes/100 WBC (Bld) 10.3 % Normal 5.0-13.[address] [facility] Comment on above: Performed By: #### L [id number] ####Cardboard Inserter: VASHTI BAILEY ([id number])[facility] ([facility])[address] [place] [address] NEUTROPHILS ABSOLUTE 5.4 10*3/uL Normal 1.8-7.5 [facility] Comment on above: Performed By: #### L [id number] ####Cardboard Inserter: VASHTI BAILEY ([id number])[facility] ([facility])[address] [place] [address] Neutrophils/100 WBC (Bld) 73.6 % Normal 38.0-82.0 [facility] Comment on above: Performed By: #### L [id number] ####Cardboard Inserter: VASHTI BAILEY ([id number])[facility] ([facility])[address] [place] [address] NRBC 0.0 /100 WBCs Normal 0.0-2.0 [facility] Comment on above: Performed By: #### L [id number] ####Cardboard Inserter: VASHTI BAILEY ([id number])[facility] ([facility])[address] [place] [address] Platelet mean volume (Bld) [Entitic vol] 10.0 fL Normal 9.0-12.7 [facility] Comment on above: Performed By: #### L [id number] ####Cardboard Inserter: VASHTI BAILEY ([id number])[facility] ([facility])[address] [place] [address] [place] Platelets (Bld) [#/Vol] 171 10*3/uL Normal 140-440 [facility] Comment on above: Performed By: #### L [id number] ####Cardboard Inserter: VASHTI BAILEY ([phone])[facility] ([facility])[address] [place] [address] [place] RBC (Bld) [#/Vol] 2.92 10*6/uL Low 3.80-5.20 [facility] Comment on above: Performed By: #### L [id number] ####Cardboard Inserter: VASHTI BAILEY ([id number])[facility])[address] [place] [address] WBC (Bld) [#/Vol] 7.4 10*3/uL Normal 3.6-10.7 [facility] Comment on above: Performed By: #### L [id number] ####Cardboard Inserter: VASHTI BAILEY ([phone])[facility])[address] [place] [address] COMPREHENSIVE METABOLIC PANE Florentin 07-04-2025 Albumin [Mass/Vol] 2.5 g/dL Low 3.4-4.8 [facility] Comment on above: Performed By: #### L [id number], LAB17 ####Cardboard Inserter: VASHTI BAILEY ([id number])[facility] ([facility])[address] [place] [address] ALP [Catalytic activity/Vol] 134 U/L Normal 40-150 [facility] Comment on above: Performed By: #### L [id number], LAB17 ####Cardboard Inserter: VASHTI BAILEY ([id number])[facility])[address] [place] [address] ALT [Catalytic activity/Vol] 36 U/L High <30 [facility] Comment on above: Performed By: #### L [id number], LAB17 ####Cardboard Inserter: VASHTI BAILEY ([id number])[facility])[address] [place] [address] Anion gap [Moles/Vol] 12 mmol/L Normal 3-13 [facility] Comment on above: Performed By: #### L [id number], LAB17 ####Cardboard Inserter: VASHTI BAILEY ([phone])[facility])[address] [place] [address] AST [Catalytic activity/Vol] 40 U/L High <34 [facility] Comment on above: Performed By: #### L [id number], LAB17 ####Cardboard Inserter: VASHTI BAILEY ([id number])[facility] ([facility])[address] [place] [address] Bilirubin [Mass/Vol] 0.6 mg/dL Normal <1.2 [facility] Comment on above: Performed By: #### L [id number], LAB17 ####Cardboard Inserter: VASHTI BAILEY ([id number])[facility] ([facility])[address] [place] [address] Calcium [Mass/Vol] 9.9 mg/dL Normal 8.8-10.0 [facility] Comment on above: Performed By: #### L [id number], LAB17 ####Cardboard Inserter: VASHTI BAILEY ([phone])[facility] ([facility])[address] [place] [address] Chloride [Moles/Vol] 91 mmol/L Low 98-107 [facility] Comment on above: Performed By: #### L [id number], LAB17 ####Cardboard Inserter: VASHTI BAILEY ([id number])[facility] ([facility])[address] [place] [address] CO2 [Moles/Vol] 29 mmol/L Normal 23-31 [facility] Comment on above: Performed By: #### L [id number], LAB17 ####Cardboard Inserter: VASHTI BAILEY ([id number])[facility])[address] [place] [address] Creatinine [Mass/Vol] 4.92 mg/dL High 0.57-1.11 [facility] Comment on above: Performed By: #### L [id number], LAB17 ####Cardboard Inserter: VASHTI BAILEY ([id number])[facility])[address] [place] [address] GLOMERULAR FILTRATION RATE ML/MIN/1.73 SQ M.PREDICTED 8.6 mL/min/1.73m*2 Low >60.0 [facility] Comment on above: Result Comment: Calc ulation based on the Chronic Kidney Disease Epidemiology Collaboration (CKD-EPI) equation refit without adjustment for race Performed By: #### L [id number], LAB17 ####Cardboard Inserter: VASHTI BAILEY ([id number])[facility])[address] [place] [address] Glucose [Mass/Vol] 125 mg/dL High 82-115 [facility] Comment on above: Performed By: #### L [id number], LAB17 ####Cardboard Inserter: VASHTI BAILEY ([id number])[facility])[address] [place] [address] Potassium [Moles/Vol] 4.7 mmol/L Normal 3.5-5.1 [facility] Comment on above: Result Comment: [facility] potassium values may be up to 0.5 mmol/L lower than serum values. Performed By: #### L [id number], LAB17 ####Cardboard Inserter: VASHTI BAILEY ([phone])[facility])[address] [place] [address] Protein [Mass/Vol] 6.7 g/dL Normal 6.4-8.3 [facility] Comment on above: Performed By: #### L [id number], LAB17 ####Cardboard Inserter: VASHTI BAILEY ([id number])[facility])[address] [place] [address] Sodium [Moles/Vol] 132 mmol/L Low 136-145 [facility] Comment on above: Performed By: #### L [id number], LAB17 ####Cardboard Inserter: VASHTI BAILEY ([phone])[facility])[address] [place] [address] [place] Urea nitrogen [Mass/Vol] 106 mg/dL High 9-23 [facility] Comment on above: Performed By: #### L [id number], LAB17 ####Cardboard Inserter: VASHTI BAILEY ([id number])[facility])[address] [place] [address] Comprehensive metabolic 1998 panelon 07-04-2025 Albumin [Mass/Vol] 2.5 g/dL Low 3.4 - 4.8 g/dL [facility] ALP [Catalytic activity/Vol] 134 U/L 40 - 150 U/L [facility] ALT [Catalytic activity/Vol] 36 U/L High NINF - 30 U/L [facility] Anion gap [Moles/Vol] 12 mmol/L 3 - 13 mmol/L [facility] AST [Catalytic activity/Vol] 40 U/L High NINF - 34 U/L [facility] Bilirubin [Mass/Vol] 0.6 mg/dL NINF - 1.2 mg/dL [facility] Calcium [Mass/Vol] 9.9 mg/dL 8.8 - 10. 0 mg/dL [facility] Chloride [Moles/Vol] 91 mmol/L Low 98 - 10 7 mmol/L [facility] CO2 [Moles/Vol] 29 mmol/L 23 - 31 mmol/L [facility] Creatinine [Mass/Vol] 4.92 mg/dL High 0.57 - 1.11 mg/dL [facility] GFR/1.73 sq M.predicted (S/P/Bld) [Vol rate/Area] 8.6 mL/min Low - PINF [facility] Comment on above: Calculation based on the Chronic Kidney Disease Epidemiology Collaboration (CKD-EPI) equation refit without adjustment for race Glucose [Mass/Vol] 125 mg/dL High 82 - 115 mg/dL [facility] Interpretation and review of laboratory results Abnormal [facility] Potassium [Moles/Vol] 4.7 mmol/L 3.5 - 5.1 mmol/L [facility] Comment on above: Plasma potassium andrae ues may be up to 0.5 mmol/L lower than serum values. Protein [Mass/Vol] 6.7 g/dL 6.4 - 8.3 g/dL [facility] Sodium [Moles/Vol] 132 mmol/L Low 136 - 145 mmol/L [facility] Urea nitrogen [Mass/Vol] 106 mg/dL High 9 - 23 mg/dL [facility] ED Nursing Noteon 07-04-2025 ED Nursing Note Report given to RYNE Browning on T2 ICU Normal [facility] ED Nursing Note Patient incontinent of stool. Cleaned and repositioned to her R side with wedges. Normal [facility] ED Nursing Note Kangaroo pump requested as well as PEG nutrition Normal [facility] ED Provider Noteon ED Provider Note Normal [facility] Guidance for exchange of non -tunneled CV [...] Electronically Signed Date/Time: 07/04/2025 3:20 PM EDT [facility] Patient Name: ROSA MYERS : [...] clinical history: None Complications: No immediate complications. [facility] Yamil Newby MD - 07/04/2025 Patient Name: [...] Electronically Signed Date/Time: 07/04/2025 3:20 PM EDT [facility] Radiology Study observation (narrative) [facility] betty Guidance for exchange of non -tunneled CV catheter of ChestOrdered By: Yamil Newby on 07-04-2025 [facility] Work Phone: HBV surface Ab IA Qnon 07-04 Interpretation: <8.0 Non-Reactive 8.0-11.9 Equivocal >= 12.0 Ab Detected Note: If an equivocal result is interpreted, an antibody status is unable to be determined. Collect new specimen if clinically indicated. [facility] HBV surface Ag IA Qlon 07-04 Interpretation and review of laboratory results Normal [facility] HEMOGLOBIN A1Con 07-04-2025 Glucose [Mass/Vol] 114 mg/dL Normal [facility] Comment on above: Result Comment: DORIAN Knight COMMENTS:If not done within the last 3 [id number] values of 5.7-6.4 percent indicate an increased risk for developing diabetes mellitus. HbA1c values greater than or equal to 6.5 percent are diagnostic of diabetes mellitus. For diagnosis of diabetes in individuals without unequivocal hyperglycemia, results should be confirmed by repeat testing. Performed By: #### L AB90 ####Cardboard Inserter: VASHTI BAILEY ([phone])[address] HEMOGLOBIN A1C 5.6 %HbA1C Normal <5.7 [facility] Comment on above: Result Comment: Norm al less than 5.7%Prediabetes 5.7% to 6.4%Diabetes 6.5% or higher--HgbA1C levels may not be accurate in patients who have renal disease, received recent blood transfusions, are anemic, or who have dyshemoglobinemia. Performed By: #### L AB90 ####Cardboard Inserter: VASHTI BAILEY ([phone])[address] HEPATITIS B SURFACE ANTIBODY on 07-04-2025 HEPATITIS B VIRUS SURFACE AB <8.0 Normal [facility] Comment on above: Result Comment: DORIAN R COMMENTS:Interpretation:<8.0 Non-Reactive8.0-11.9 Equivocal>= 12.0 Ab DetectedNote: If an equivocal result is interpreted, an antibody status is unable to be determined. Collect new specimen if clinically indicated. Performed By: #### L [id number], [id number] ####Cardboard Inserter: VASHTI BAILEY ([phone])[facility])[address] [place] [address] HEPATITIS B SURFACE ANTIGENo n 07-04-2025 HEPATITIS B VIRUS SURFACE AG Not detected Normal Not Detected [facility] Comment on above: Performed By: #### L AB472, [id number] ####Cardboard Inserter: VASHTI BAILEY ([id number])[facility])[address] [place] [address] Laboratory - Chemistry and C hemistry - challengeon 07-04-2025 Glucose [Mass/Vol] 137 mg/dL High 70 - 100 mg/dL [facility] Average glucose Estimated from glycated hemoglobin (Bld) [Mass/Vol] 114 mg/dL [facility] Laboratory - Hematology and Cell countson 07-04-2025 HbA1c (Bld) [Mass fraction] 5.6 % [facility] Comment on above: Normal less than 5.7 % Prediabetes 5.7% to 6.4% Diabetes 6.5% or higher --HgbA1C levels may not be accurate in patients who have renal disease, received recent blood transfusions, are anemic, or who have dyshemoglobinemia. Laboratory - Microbiology an d Antimicrobial susceptibilityon 07-04-2025 HBV surface Ab IA Qn mIU/mL [facility] HBV surface Ag IA Ql Not detected Not Detected [facility] NT PRO BNPon 07-04-2025 Natriuretic peptide B (Bld) [Mass/Vol] 01756 pg/mL High <956 [facility] Comment on above: Result Comment: DORIAN [...] values. Performed By: #### L AB106, LAB17 ####Cardboard Inserter: VASHTI BAILEY ([phone])[facility] ([address] Natriuretic peptide B [Mass/ Vol]Ordered By: Kellee Savage on 07-04-2025 Interpretation and review of laboratory results Abnormal [facility] Natriuretic peptide B (Bld) [Mass/Vol] 72638 pg/mL High NINF - 956 pg/mL [facility] In patients with suspected acute HF, NT-proBNP [...] may not correlate well with previous values. [facility] No Panel Informationon 07-04 Interpretation and review of laboratory results Abnormal [facility] Hospital Performed by: [facility], [address] [place] [address] CLIA ID: [id number] [facility] HbA1c values of 5.7-6.4 percent indicate an increased risk for developing diabetes mellitus. HbA1c values greater than or equal to 6.5 percent are diagnostic of diabetes mellitus. For diagnosis of diabetes in individuals without unequivocal hyperglycemia, results should be confirmed by repeat testing. Formerly Named [facility] Nursing Noteon 07-04-2025 Nursing Note Pt transported to ER 37 with RT. POWER MANAGER aware of arrival Normal [facility] Nursing Note Normal [facility] Nursing Note Tunneled hd cath removed. Normal [facility] Nursing Note Normal [facility] Nursing Note Unable to place IV - charge manager notified. Limited History per paperwork brought - updated [employer] Melvi from anesthesia. RT Tamar was at bedside and switched pt from physicians transport vent to [facility] Normal [facility] Progress Noteon 07-04-2025 Progress Note Normal [facility] CBC W Auto Differential pane l (Bld)on 07-03-2025 Basophils (Bld) [#/Vol] 0 10*3/uL 0.0 - 0.2 10*3/uL [facility] Basophils/100 WBC (Bld) 0.4 % 0.0 - 2.0 % [facility] Eosinophils (Bld) [#/Vol] 0.2 10*3/uL 0.0 - 0.5 10*3/uL [facility] Eosinophils/100 WBC (Bld) 2 % 0.0 - 6.0 % [facility] Erythrocyte distribution width (RBC) [Ratio] 19.6 % High 11.5 - 15.0 % [facility] Hematocrit (Bld) [Volume fraction] 25.1 % Low 35.0 - 47.0 % [facility] Hemoglobin (Bld) [Mass/Vol] 8 g/dL Low 11.7 - 16.0 g/dL [facility] Immature granulocytes (Bld) [#/Vol] 0.1 10*3/uL High NINF - 0.1 10*3/uL [facility] Immature granulocytes/100 WBC (Bld) 0.8 % 0.0 - 2.0 % [facility] Interpretation and review of laboratory results Abnormal [facility] Lymphocytes (Bld) [#/Vol] 0.8 10*3/uL Low 1.0 - 4.3 10*3/uL [facility] Lymphocytes/100 WBC (Bld) 11.3 % Low 15.0 - 45.0 % [facility] MCH (RBC) [Entitic mass] 27.2 pg 26.0 - 34.0 pg [facility] MCHC (RBC) [Mass/Vol] 31.9 % 30.5 - 36.0 % [facility] MCV (RBC) [Entitic vol] 85.4 fL 77.0 - 99.0 fL [facility] Monocytes (Bld) [#/Vol] 0.9 10*3/uL 0.0 - 0.9 10*3/uL [facility] Monocytes/100 WBC (Bld) 11.7 % 5.0 - 13.0 % [facility] Neutrophils (Bld) [#/Vol] 5.4 10*3/uL 1.8 - 7.5 10*3/uL [facility] Neutrophils/100 WBC (Bld) 73.8 % 38.0 - 82.0 % [facility] Nucleated RBC/100 WBC (Bld) [Ratio] 0 % [facility] SeeMe Platelet mean volume (Bld) [Entitic vol] 10 fL 9.0 - 12.7 fL [facility] SeeMe Platelets (Bld) [#/Vol] 197 10*3/uL 140 - 440 10*3/uL [facility] RBC (Bld) [#/Vol] 2.94 10*6/uL Low 3.80 - 5.2 0 10*6/uL [facility] WBC (Bld) [#/Vol] 7.3 10*3/uL 3.6 - 10.7 10*3/uL [facility] CBC WITH AUTO DIFFERENTIALon 07-03-2025 Basophils (Bld) [#/Vol] 0.0 10*3/uL Normal 0.0-0.2 [facility] Comment on above: Performed By: #### L [id number] ####Cardboard Inserter: VASHTI BAILEY ([phone])[facility])[address] [place] [address] Basophils/100 WBC (Bld) 0.4 % Normal 0.0-2.0 [facility] Comment on above: Performed By: #### L [id number] ####Cardboard Inserter: VASHTI BAILEY ([phone])[facility])[address] [place] [address] Eosinophils (Bld) [#/Vol] 0.2 10*3/uL Normal 0.0-0.5 [facility] Comment on above: Performed By: #### L [id number] ####Cardboard Inserter: VASHTI BAILEY ([phone])[facility])[address] [place] [address] Eosinophils/100 WBC (Bld) 2.0 % Normal 0.0-6.0 [facility] Comment on above: Performed By: #### L [id number] ####Cardboard Inserter: VASHTI BAILEY ([id number])[facility])[address] [place] [address] Erythrocyte distribution width (RBC) [Ratio] 19.6 % High 11.5-15.0 [facility] Comment on above: Performed By: #### L [id number] ####Cardboard Inserter: VASHTI BAILEY ([id number])[facility])[address] [place] [address] Hematocrit (Bld) [Volume fraction] 25.1 % Low 35.0-47.0 [facility] Comment on above: Performed By: #### L [id number] ####Cardboard Inserter: VASHTI BAILEY ([id number])[facility])[address] [place] [address] Hemoglobin (Bld) [Mass/Vol] 8.0 g/dL Low 11.7-16.0 [facility] Comment on above: Performed By: #### L [id number] ####Cardboard Inserter: VASHTI BAILEY ([phone])[facility])[address] [place] [address] IMMATURE GRANS % 0.8 % Normal 0.0-2.0 [facility] Comment on above: Performed By: #### L [id number] ####Cardboard Inserter: VASHTI BAILEY ([phone])[facility])[address] [place] [address] IMMATURE GRANS ABSOLUTE 0.1 10*3/uL High <0.1 [facility] Comment on above: Performed By: #### L [id number] ####Cardboard Inserter: VASHTI BAILEY ([id number])[facility])[address] [place] [address] Lymphocytes (Bld) [#/Vol] 0.8 10*3/uL Low 1.0-4.3 [facility] Comment on above: Performed By: #### L [id number] ####Cardboard Inserter: VASHTI BAILEY ([phone])[facility])[address] [place] [address] Lymphocytes/100 WBC (Bld) 11.3 % Low 15.0-45.0 [facility] Comment on above: Performed By: #### L [id number] ####Cardboard Inserter: VASHTI BAILEY ([id number])[facility])[address] [place] [address] MCH (RBC) [Entitic mass] 27.2 pg Normal 26.0-34.0 [facility] Comment on above: Performed By: #### L [id number] ####Cardboard Inserter: VASHTI BAILEY ([id number])[facility])[address] [place] [address] MCHC 31.9 % Normal 30.5-36.0 [facility] Comment on above: Performed By: #### L [id number] ####Cardboard Inserter: VASHTI BAILEY ([id number])[facility])[address] [place] [address] MCV (RBC) [Entitic vol] 85.4 fL Normal 77.0-99.0 [facility] Comment on above: Performed By: #### L [id number] ####Cardboard Inserter: VASHTI BAILEY ([id number])[facility])[address] [place] [address] Monocytes (Bld) [#/Vol] 0.9 10*3/uL Normal 0.0-0.9 [facility] Comment on above: Performed By: #### L [id number] ####Cardboard Inserter: VASHTI BAILEY ([phone])[facility])[address] [place] [address] Monocytes/100 WBC (Bld) 11.7 % Normal 5.0-13.0 [facility] Comment on above: Performed By: #### L [id number] ####Cardboard Inserter: VASHTI BAILEY ([id number])[facility])[address] [place] [address] NEUTROPHILS ABSOLUTE 5.4 10*3/uL Normal 1.8-7.5 [facility] Comment on above: Performed By: #### L [id number] ####Cardboard Inserter: VASHTI BAILEY ([id number])[facility])[address] [place] [address] Neutrophils/100 WBC (Bld) 73.8 % Normal 38.0-82.0 [facility] Comment on above: Performed By: #### L [id number] ####Cardboard Inserter: VASHTI [id number])[facility] ([facility])[address] [place] [address] NRBC 0.0 /100 WBCs Normal 0.0-2.0 [facility] Comment on above: Performed By: #### L [id number] ####Cardboard Inserter: VASHTI BAILEY ([id number])[facility])[address] [place] [address] Platelet mean volume (Bld) [Entitic vol] 10.0 fL Normal 9.0-12.7 [facility] Comment on above: Performed By: #### L [id number] ####Cardboard Inserter: VASHTI BAILEY ([id number])[facility])[address] [place] [address] Platelets (Bld) [#/Vol] 197 10*3/uL Normal 140-440 [facility] Comment on above: Performed By: #### L [id number] ####Cardboard Inserter: VASHTI BAILEY ([id number])[facility] ([facility])[address] [place] [address] RBC (Bld) [#/Vol] 2.94 10*6/uL Low 3.80-5.20 [facility] Comment on above: Performed By: #### L [id number] ####Cardboard Inserter: VASHTI BAILEY ([id number])[facility])[address] [place] [address] WBC (Bld) [#/Vol] 7.3 10*3/uL Normal 3.6-10.7 [facility] Comment on above: Performed By: #### L [id number] ####Cardboard Inserter: VASHTI BAILEY ([phone])[facility])[address] [place] [address] COMPREHENSIVE METABOLIC PANE Florentin 07-03-2025 Albumin [Mass/Vol] 2.5 g/dL Low 3.4-4.8 [facility] Comment on above: Performed By: #### L [id number], [id number] ####Cardboard Inserter: VASHTI BAILEY ([id number])[facility] [place] [address] [place] ALP [Catalytic activity/Vol] 135 U/L Normal 40-150 [facility] Comment on above: Performed By: #### L [id number], [id number] ####Cardboard Inserter: VASHTI BAILEY ([id number])[facility] ([facility])[address] [place] [address] [place] ALT [Catalytic activity/Vol] 25 U/L Normal <30 [facility] Comment on above: Performed By: #### L [id number], [id number] ####Cardboard Inserter: VASHTI BAILEY ([id number])[facility] ([facility])[address] [place] [address] Anion gap [Moles/Vol] 12 mmol/L Normal 3-13 [facility] Comment on above: Performed By: #### L [id number], [id number] ####Cardboard Inserter: VASHTI BAILEY ([id number])[facility] ([facility])[address] [place] [address] AST [Catalytic activity/Vol] 39 U/L High <34 [facility] Comment on above: Performed By: #### L [id number], [id number] ####Cardboard Inserter: VASHTI BALIEY ([id number])[facility] ([facility])[address] [place] [address] Bilirubin [Mass/Vol] 0.5 mg/dL Normal <1.2 [facility] Comment on above: Performed By: #### L AB17, [id number] ####Cardboard Inserter: VASHTI BAILEY ([id number])[facility] ([facility])[address] [place] [address] [place] Calcium [Mass/Vol] 10.1 mg/dL High 8.8-10.0 [facility] Comment on above: Performed By: #### L AB17, [id number] ####Cardboard Inserter: VASHTI BAILEY ([id number])[facility] ([facility])[address] [place] [address] [place] Chloride [Moles/Vol] 92 mmol/L Low 98-107 [facility] Comment on above: Performed By: #### L AB17, [id number] ####Cardboard Inserter: VASHTI BAILEY ([phone])[facility])[address] [place] [address] CO2 [Moles/Vol] 30 mmol/L Normal 23-31 [facility] Comment on above: Performed By: #### L AB17, [id number] ####Cardboard Inserter: VASHTI BAILEY ([id number])[facility])[address] [place] [address] Creatinine [Mass/Vol] 4.14 mg/dL High 0.57-1.11 [facility] Comment on above: Performed By: #### L AB17, [id number] ####Cardboard Inserter: VASHTI BAILEY ([phone])[facility])[address] [place] [address] GLOMERULAR FILTRATION RATE ML/MIN/1.73 SQ M.PREDICTED 10.6 mL/min/1.73m*2 Low >60.0 [facility] Comment on above: Result Comment: Calc ulation based on the Chronic Kidney Disease Epidemiology Collaboration (CKD-EPI) equation refit without adjustment for race Performed By: #### L AB17, [id number] ####Cardboard Inserter: VASHTI BAILEY ([id number])[facility])[address] [place] [address] Glucose [Mass/Vol] 118 mg/dL High 82-115 [facility] Comment on above: Performed By: #### L AB17, [id number] ####Cardboard Inserter: VASHTI BAILEY ([id number])[facility])[address] [place] [address] Potassium [Moles/Vol] 3.9 mmol/L Normal 3.5-5.1 [facility] Comment on above: Result Comment: [facility] potassium values may be up to 0.5 mmol/L lower than serum values. Performed By: #### L AB17, [id number] ####Cardboard Inserter: VASHTI BAILEY ([id number])[facility])[address] [place] [address] Protein [Mass/Vol] 6.8 g/dL Normal 6.4-8.3 [facility] Comment on above: Performed By: #### L AB17, [id number] ####Cardboard Inserter: VASHTI BAILEY ([phone])[facility])[address] [place] [address] Sodium [Moles/Vol] 134 mmol/L Low 136-145 [facility] Comment on above: Performed By: #### L AB17, [id number] ####Cardboard Inserter: VASHTI BAILEY ([id number])[facility] ([facility])[address] [place] [address] Urea nitrogen [Mass/Vol] 88 mg/dL High 9-23 [facility] Comment on above: Performed By: #### Perez AB17, [id number] ####Cardboard Inserter: VASHTI BAILEY ([phone])[facility])[address] [place] [address] Comprehensive metabolic 1998 panelon 07-03-2025 Albumin [Mass/Vol] 2.5 g/dL Low 3.4 - 4.8 g/dL [facility] ALP [Catalytic activity/Vol] 135 U/L 40 - 150 U/L [facility] ALT [Catalytic activity/Vol] 25 [facility] Anion gap [Moles/Vol] 12 mmol/L 3 - 13 mmol/L [facility] AST [Catalytic activity/Vol] 39 U/L High NINF - 34 U/L [facility] Bilirubin [Mass/Vol] 0.5 mg/dL NINF - 1.2 mg/dL [facility] Calcium [Mass/Vol] 10.1 mg/dL High 8.8 - 10. 0 mg/dL [facility] Chloride [Moles/Vol] 92 mmol/L Low 98 - 10 7 mmol/L [facility] CO2 [Moles/Vol] 30 mmol/L 23 - 31 mmol/L [facility] Creatinine [Mass/Vol] 4.14 mg/dL High 0.57 - 1.11 mg/dL [facility] GFR/1.73 sq M.predicted (S/P/Bld) [Vol rate/Area] 10.6 mL/min Low - PINF [facility] Comment on above: Calculation based on the Chronic Kidney Disease Epidemiology Collaboration (CKD-EPI) equation refit without adjustment for race Glucose [Mass/Vol] 118 mg/dL High 82 - 115 mg/dL [facility] Interpretation and review of laboratory results Abnormal [facility] Potassium [Moles/Vol] 3.9 mmol/L 3.5 - 5.1 mmol/L [facility] Comment on above: Plasma potassium andrae ues may be up to 0.5 mmol/L lower than serum values. Protein [Mass/Vol] 6.8 g/dL 6.4 - 8.3 g/dL [facility] Sodium [Moles/Vol] 134 mmol/L Low 136 - 145 mmol/L [facility] Urea nitrogen [Mass/Vol] 88 mg/dL High 9 - 23 mg/dL [facility] ECG 12-LEADon 07-03-2025 ECG 12-LEAD IMPRESSION: Sinus rhythm Atrial premature complexes Left bundle branch block No change compared to previous ekg Electronically Signed On 07-03-2025 13:49:02 EDT by Gerardo Felder Normal [facility] ED Provider Noteon ED Provider Note Normal [facility] Laboratory - Chemistry and C hemistry - challengeon 07-03-2025 Magnesium [Mass/Vol] 2.6 mg/dL 1.6 - 2 .6 mg/dL [facility] MAGNESIUMon 07-03-2025 Magnesium [Mass/Vol] 2.6 mg/dL Normal 1.6-2.6 [facility] Comment on above: Result Comment: DORIAN Knight COMMENTS:Higher values can be expected in females during menses. Performed By: #### L AB17, [id number] ####Cardboard Inserter: VASHTI BAILEY ([id number])[facility] ([facility])[address] [place] [address] Magnesium [Mass/Vol]on 07-03 Interpretation and review of laboratory results Normal [facility] Higher values can be expected in females during menses. [facility] SeeMe No Panel Informationon 07-03 [facility] P [place] -1 degrees [facility] CA Interval 175 ms [facility] QRS [place] -15 degrees [facility] QRSD Interval 177 ms [facility]alt [facility] QT Interval 516 ms [facility] QTC Interval 539 ms [facility] T Wave [place] 182 degrees [facility] Sinus rhythm Atrial premature complexes Left bundle branch block No change compared to previous ekg Electronically Signed On 07-03-2025 13:49:02 EDT by Gerardo Ontiveros M D - 07/03/2025 IMPRESSION: Sinus rhythm Atrial premature complexes Left bundle branch block No change compared to previous ekg Electronically Signed On 07-03-2025 13:49:02 EDT by Gerardo Felder [facility] Vital signson 07-03-2025 Heart rate 68 /min bpm [facility] XR Chest Single viewon 07-03 FINDINGS/IMPRESSION: Limitations: [...] Electronically Signed Date/Time: 07/03/2025 2:48 PM EDT [facility]Y [facility] Patient Name: ROSA MYERS : 1950 Exam Date/Time: 07/03/2025 14:28 Procedure: XR CHEST 1 VIEW Ordering Provider: REDD JUSTIN Reason For Exam: dialysis port concerns CHEST - PORTABLE: CLINICAL INDICATION: dialysis port concerns TECHNIQUE: Portable AP COMPARISON: 06/08/2025. [facility] Amaris Slade MD - 07/03/2025 Patient [...] Electronically Signed Date/Time: 07/03/2025 2:48 PM EDT [facility] Radiology Study observation (narrative) [facility] XR Chest Single viewOrdered By: Amaris Slade on 07-03-2025 [facility] Work Phone: CBC W Auto Differential pane l (Bld)on 07-02-2025 Basophils (Bld) [#/Vol] 0.1 10*3/uL 0.0 - 0.2 10*3/uL [facility] Basophils/100 WBC (Bld) 0.7 % 0.0 - 2.0 % [facility] Eosinophils (Bld) [#/Vol] 0.2 10*3/uL 0.0 - 0.5 10*3/uL [facility] Eosinophils/100 WBC (Bld) 2.2 % 0.0 - 6.0 % [facility] Erythrocyte distribution width (RBC) [Ratio] 19.7 % High 11.5 - 15.0 % [facility] Hematocrit (Bld) [Volume fraction] 25.5 % Low 35.0 - 47.0 % [facility] Hemoglobin (Bld) [Mass/Vol] 8.2 g/dL Low 11.7 - 16.0 g/dL [facility] Immature granulocytes (Bld) [#/Vol] 0.1 10*3/uL High NINF - 0.1 10*3/uL [facility] SeeMe Immature granulocytes/100 WBC (Bld) 0.9 % 0.0 - 2.0 % [facility] Interpretation and review of laboratory results Abnormal [facility] Lymphocytes (Bld) [#/Vol] 0.9 10*3/uL Low 1.0 - 4.3 10*3/uL [facility] Lymphocytes/100 WBC (Bld) 12.7 % Low 15.0 - 45.0 % [facility] MCH (RBC) [Entitic mass] 27.3 pg 26.0 - 34.0 pg [facility] MCHC (RBC) [Mass/Vol] 32.2 % 30.5 - 36.0 % [facility] MCV (RBC) [Entitic vol] 85 fL 77.0 - 99.0 fL [facility] Monocytes (Bld) [#/Vol] 0.9 10*3/uL 0.0 - 0.9 10*3/uL [facility] Monocytes/100 WBC (Bld) 12.9 % 5.0 - 13.0 % [facility] Neutrophils (Bld) [#/Vol] 4.8 10*3/uL 1.8 - 7.5 10*3/uL [facility] Neutrophils/100 WBC (Bld) 70.6 % 38.0 - 82.0 % [facility] Nucleated RBC/100 WBC (Bld) [Ratio] 0 % [facility] Platelet mean volume (Bld) [Entitic vol] 10 fL 9.0 - 12.7 fL [facility] Platelets (Bld) [#/Vol] 196 10*3/uL 140 - 440 10*3/uL [facility] RBC (Bld) [#/Vol] 3 10*6/uL Low 3.80 - 5.2 0 10*6/uL [facility] WBC (Bld) [#/Vol] 6.8 10*3/uL 3.6 - 10.7 10*3/uL [facility] CBC WITH AUTO DIFFERENTIALon 07-02-2025 Basophils (Bld) [#/Vol] 0.1 10*3/uL Normal 0.0-0.2 [facility] Comment on above: Performed By: #### L [id number] ####Cardboard Inserter: VASHTI BAILEY ([id number])[facility] ([facility])[address] [place] [address] Basophils/100 WBC (Bld) 0.7 % Normal 0.0-2.[address] [facility] Comment on above: Performed By: #### L [id number] ####Cardboard Inserter: VASHTI BAILEY ([id number])[facility])[address] [place] [address] Eosinophils (Bld) [#/Vol] 0.2 10*3/uL Normal 0.0-0.5 [facility] Comment on above: Performed By: #### L [id number] ####Cardboard Inserter: VASHTI BAILEY ([id number])[facility])[address] [place] [address] Eosinophils/100 WBC (Bld) 2.2 % Normal 0.0-6.0 [facility] Comment on above: Performed By: #### L [id number] ####Cardboard Inserter: VASHTI BAILEY ([id number])[facility] ([facility])[address] [place] [address] Erythrocyte distribution width (RBC) [Ratio] 19.7 % High 11.5-15.0 [facility] Comment on above: Performed By: #### L [id number] ####Cardboard Inserter: VASHTI BAILEY ([id number])[facility])[address] [place] [address] Hematocrit (Bld) [Volume fraction] 25.5 % Low 35.0-47.0 [facility] Comment on above: Performed By: #### L [id number] ####Cardboard Inserter: VASHTI BAILEY ([phone])[facility])[address] [place] [address] Hemoglobin (Bld) [Mass/Vol] 8.2 g/dL Low 11.7-16.0 [facility] Comment on above: Performed By: #### L [id number] ####Cardboard Inserter: VASHTI BAILEY ([phone])[facility])[address] [place] [address] IMMATURE GRANS % 0.9 % Normal 0.0-2.0 [facility] Comment on above: Performed By: #### L [id number] ####Cardboard Inserter: VASHTI BAILEY ([phone])[facility])[address] [place] [address] IMMATURE GRANS ABSOLUTE 0.1 10*3/uL High <0.1 [facility] Comment on above: Performed By: #### L [id number] ####Cardboard Inserter: VASHTI BAILEY ([id number])[facility])[address] [place] [address] Lymphocytes (Bld) [#/Vol] 0.9 10*3/uL Low 1.0-4.3 [facility] Comment on above: Performed By: #### L [id number] ####Cardboard Inserter: VASHTI BAILEY ([id number])[facility])[address] [place] [address] Lymphocytes/100 WBC (Bld) 12.7 % Low 15.0-45.0 [facility] Comment on above: Performed By: #### L [id number] ####Cardboard Inserter: VASHTI BAILEY ([phone])[facility])[address] [place] [address] MCH (RBC) [Entitic mass] 27.3 pg Normal 26.0-34.0 [facility] Comment on above: Performed By: #### L [id number] ####Cardboard Inserter: VASHTI BAILEY ([id number])[facility])[address] [place] [address] MCHC 32.2 % Normal 30.5-36.0 [facility] Comment on above: Performed By: #### L [id number] ####Cardboard Inserter: VASHTI BAILEY ([id number])[facility] [facility])[address] [place] [address] MCV (RBC) [Entitic vol] 85.0 fL Normal 77.0-99.0 [facility] Comment on above: Performed By: #### L [id number] ####Cardboard Inserter: VASHTI BAILEY ([phone])[facility] ([facility])[address] [place] [address] Monocytes (Bld) [#/Vol] 0.9 10*3/uL Normal 0.0-0.9 [facility] Comment on above: Performed By: #### L [id number] ####Cardboard Inserter: VASHTI BAILEY ([phone])[facility] ([facility])[address] [place] [address] Monocytes/100 WBC (Bld) 12.9 % Normal 5.0-13.0 [facility] Comment on above: Performed By: #### L [id number] ####Cardboard Inserter: VASHTI BAILEY ([id number])[facility] ([facility])[address] [place] [address] NEUTROPHILS ABSOLUTE 4.8 10*3/uL Normal 1.8-7.5 [facility] Comment on above: Performed By: #### L [id number] ####Cardboard Inserter: VASHTI BAILEY ([phone])[facility] ([facility])[address] [place] [address] Neutrophils/100 WBC (Bld) 70.6 % Normal 38.0-82.0 [facility] Comment on above: Performed By: #### L [id number] ####Cardboard Inserter: VASHTI BAILEY ([phone])[facility] ([facility])[address] [place] [address] NRBC 0.0 /100 WBCs Normal 0.0-2.0 [facility] Comment on above: Performed By: #### L [id number] ####Cardboard Inserter: VASHTI BAILEY ([id number])[facility] ([facility])[address] [place] [address] Platelet mean volume (Bld) [Entitic vol] 10.0 fL Normal 9.0-12.7 [facility] Comment on above: Performed By: #### L [id number] ####Cardboard Inserter: VASHTI BAILEY ([id number])[facility] ([facility])[address] [place] [address] Platelets (Bld) [#/Vol] 196 10*3/uL Normal 140-440 [facility] Comment on above: Performed By: #### L [id number] ####Cardboard Inserter: VASHTI BAILEY ([id number])[facility] ([facility])[address] [place] [address] RBC (Bld) [#/Vol] 3.00 10*6/uL Low 3.80-5.20 [facility] Comment on above: Performed By: #### L [id number] ####Cardboard Inserter: VASHTI BAILEY ([id number])[facility])[address] [place] [address] WBC (Bld) [#/Vol] 6.8 10*3/uL Normal 3.6-10.7 [facility] Comment on above: Performed By: #### L [id number] ####Cardboard Inserter: VASHTI BAILEY ([id number])[facility] ([facility])[address] [place] [address] COMPREHENSIVE METABOLIC PANE Florentin 07-02-2025 Albumin [Mass/Vol] 2.7 g/dL Low 3.4-4.8 [facility] Comment on above: Performed By: #### L [id number] ####Cardboard Inserter: VASHTI BAILEY ([phone])[facility] ([facility])[address] [place] [address] ALP [Catalytic activity/Vol] 141 U/L Normal 40-150 [facility] Comment on above: Performed By: #### L [id number] ####Cardboard Inserter: VASHTI BAILEY ([id number])[facility])[address] [place] [address] ALT [Catalytic activity/Vol] 26 U/L Normal <30 [facility] Comment on above: Performed By: #### L [id number] ####Cardboard Inserter: VASHTI BAILEY ([id number])[facility])[address] [place] [address] Anion gap [Moles/Vol] 12 mmol/L Normal 3-13 [facility] Comment on above: Performed By: #### L [id number] ####Cardboard Inserter: VASHTI BAILEY ([id number])[facility] ([facility])[address] [place] [address] AST [Catalytic activity/Vol] 33 U/L Normal <34 [facility] Comment on above: Performed By: #### L [id number] ####Cardboard Inserter: VASHTI BAILEY ([id number])[facility] ([facility])[address] [place] [address] Bilirubin [Mass/Vol] 0.6 mg/dL Normal <1.2 [facility] Comment on above: Performed By: #### L [id number] ####Cardboard Inserter: VASHTI BAILEY ([id number])[facility] ([facility])[address] [place] [address] Calcium [Mass/Vol] 10.1 mg/dL High 8.8-10.0 [facility] Comment on above: Performed By: #### L [id number] ####Cardboard Inserter: VASHTI BAILEY ([id number])[facility] ([facility])[address] [place] [address] Chloride [Moles/Vol] 91 mmol/L Low 98-107 [facility] Comment on above: Performed By: #### L [id number] ####Cardboard Inserter: VASHTI BAILEY ([phone])[facility] ([facility])[address] [place] [address] [place] CO2 [Moles/Vol] 30 mmol/L Normal 23-31 [facility] Comment on above: Performed By: #### L [id number] ####Cardboard Inserter: VASHTI BAILEY ([id number])[facility] ([facility])[address] [place] [address] Creatinine [Mass/Vol] 3.38 mg/dL High 0.57-1.11 [facility] Comment on above: Performed By: #### L [id number] ####Cardboard Inserter: VASHTI BAILEY ([id number])[facility])[address] [place] [address] [place] GLOMERULAR FILTRATION RATE ML/MIN/1.73 SQ M.PREDICTED 13.5 mL/min/1.73m*2 Low >60.0 [facility] Comment on above: Result Comment: Calc ulation based on the Chronic Kidney Disease Epidemiology Collaboration (CKD-EPI) equation refit without adjustment for race Performed By: #### L [id number] ####Cardboard Inserter: VASHTI BAILEY ([id number])[facility])[address] [place] [address] Glucose [Mass/Vol] 124 mg/dL High 82-115 [facility] Comment on above: Performed By: #### L AB17 ####Cardboard Inserter: VASHTI BAILEY ([id number])[facility])[address] [place] [address] Potassium [Moles/Vol] 3.8 mmol/L Normal 3.5-5.1 [facility] Comment on above: Result Comment: [facility] potassium values may be up to 0.5 mmol/L lower than serum values. Performed By: #### L [id number] ####Cardboard Inserter: VASHTI BAILEY ([phone])[facility])[address] [place] [address] Protein [Mass/Vol] 6.9 g/dL Normal 6.4-8.3 [facility] Comment on above: Performed By: #### L [id number] ####Cardboard Inserter: VASHTI BAILEY ([id number])[facility])[address] [place] [address] [place] Sodium [Moles/Vol] 133 mmol/L Low 136-145 [facility] Comment on above: Performed By: #### L [id number] ####Cardboard Inserter: VASHTI BAILEY ([id number])[facility])[address] [place] [address] [place] Urea nitrogen [Mass/Vol] 74 mg/dL High 9-23 [facility] Comment on above: Performed By: #### L [id number] ####Cardboard Inserter: VASHTI [id number])[facility] ([facility])[address] [place] [address] Comprehensive metabolic 1998 panelon 07-02-2025 Albumin [Mass/Vol] 2.7 g/dL Low 3.4 - 4.8 g/dL [facility] ALP [Catalytic activity/Vol] 141 U/L 40 - 150 U/L [facility] ALT [Catalytic activity/Vol] 26 U/L NINF - 30 U/L [facility] Anion gap [Moles/Vol] 12 mmol/L 3 - 13 mmol/L [facility] AST [Catalytic activity/Vol] 33 U/L NINF - 34 U/L [facility] Bilirubin [Mass/Vol] 0.6 mg/dL NINF - 1.2 mg/dL [facility] Calcium [Mass/Vol] 10.1 mg/dL High 8.8 - 10. 0 mg/dL [facility] Chloride [Moles/Vol] 91 mmol/L Low 98 - 10 7 mmol/L [facility] CO2 [Moles/Vol] 30 mmol/L 23 - 31 mmol/L [facility] Creatinine [Mass/Vol] 3.38 mg/dL High 0.57 - 1.11 mg/dL [facility] GFR/1.73 sq M.predicted (S/P/Bld) [Vol rate/Area] 13.5 mL/min Low - PINF [facility] Comment on above: Calculation based on the Chronic Kidney Disease Epidemiology Collaboration (CKD-EPI) equation refit without adjustment for race Glucose [Mass/Vol] 124 mg/dL High 82 - 115 mg/dL [facility] Interpretation and review of laboratory results Abnormal [facility] Potassium [Moles/Vol] 3.8 mmol/L 3.5 - 5.1 mmol/L [facility] Comment on above: Plasma potassium andrae ues may be up to 0.5 mmol/L lower than serum values. Protein [Mass/Vol] 6.9 g/dL 6.4 - 8.3 g/dL [facility] Sodium [Moles/Vol] 133 mmol/L Low 136 - 145 mmol/L [facility] Urea nitrogen [Mass/Vol] 74 mg/dL High 9 - 23 mg/dL [facility] ED Nursing Noteon 07-02-2025 ED Nursing Note Discharge discussed with transport at this time. Patient leaves in stable condition. IV removed, gauze and tape placed over insertion site. Normal [facility] ED Nursing Note breeder service technician at bedside - reports no issues flushing and pulling from catheter. Normal [facility] ED Provider Noteon ED Provider Note Normal [facility] Respiratory Cultureon 2024 RESPC Normal [facility] Comment on above: Performed By: #### M 100.2400, M100.1999 ####[facility] [id number] [place], [place], [address] Gram Stainon 06-28-2025 GS 405-2 Acceptable Specimen? Yes (<25 Epithelial cells per/lpf) Gram Stain 4+ Gram positive rods Rare Gram negative rods 2+ White Blood Cells No Epithelial cells [facility] Comment on above: Performed By: #### M 100.2400, M100.1999 ####[facility] [id number] [place], [address] [id number] 06-21-2025 [id number] Fci/SNF - [place] [phone] [id number] Returning to Facility [facility] [phone] [facility] [phone] Transport requested 5PM in Roundtrip. Awaiting time confirmation. [facility] [phone] Discharge med list [facility] per TCC request. [facility] CBC (HEMOGRAM)on 06-21-2025 Erythrocyte distribution width (RBC) [Ratio] 17.9 % High 11.5-15.0 [facility] Comment on above: Performed By: #### L [id number] ####Cardboard Inserter: NATALIE GARCIA ([id number])[facility]ELISSA ([facility])[address] [place] [address] Hematocrit (Bld) [Volume fraction] 23.2 % Low 35.0-47.0 [facility] Comment on above: Performed By: #### L [id number] ####Cardboard Inserter: NATALIE SIMONErlindaTRICIA ([id number])[facility] CAMPUSJosé Miguel REHMANREHOBOTH MCKINLEY CHRISTIAN HEALTH CARE SERVICESLaurel ([facility])[address] Hemoglobin (Bld) [Mass/Vol] 7.2 g/dL Low 11.7-16.0 [facility] Comment on above: Performed By: #### L [id number] ####Cardboard Inserter: NATALIE JOSE ([id number])[facility] CAMPUSJosé Miguel [place] ([facility])[address] MCH (RBC) [Entitic mass] 26.3 pg Normal 26.0-34.0 [facility] Comment on above: Performed By: #### L [id number] ####Cardboard Inserter: NATALIE DENISETRICIA ([id number])[facility] ([facility])[address] MCHC 31.0 % Normal 30.5-36.0 [facility] Comment on above: Performed By: #### L [id number] ####Cardboard Inserter: NATALIE DENISETRICIA ([phone])[facility] ([facility])[address] [place] [address] MCV (RBC) [Entitic vol] 84.7 fL Normal 77.0-99.0 S [facility] Comment on above: Performed By: #### L [id number] ####Cardboard Inserter: NATALIE DENISETRICIA ([id number])[facility] ([facility])[address] Platelet mean volume (Bld) [Entitic vol] 9.9 fL Normal 9.0-12.7 [facility] Comment on above: Performed By: #### L [id number] ####Cardboard Inserter: NATALIE DENISETRICIA ([id number])[facility] ([facility])[address] [place] [address] [place] Platelets (Bld) [#/Vol] 242 10*3/uL Normal 140-440 [facility] Comment on above: Performed By: #### L [id number] ####Cardboard Inserter: NATALIE SIMONErlindaTRICIA ([id number])[facility] ([facility])[address] [place] [address] RBC (Bld) [#/Vol] 2.74 10*6/uL Low 3.80-5.20 [facility] Comment on above: Performed By: #### L [id number] ####Cardboard Inserter: NATALIE CALVERTCER ([id number])[facility] ([facility])[address] [place] [address] WBC (Bld) [#/Vol] 7.0 10*3/uL Normal 3.6-10.7 [facility] Comment on above: Performed By: #### L [id number] ####Cardboard Inserter: NATALIE GARCIA ([id number])[facility] ([facility])[address] [place] [address] CBC panel Auto (Bld)on 06-21 Erythrocyte distribution width (RBC) [Ratio] 17.9 % High 11.5 - 15.0 % [facility] Hematocrit (Bld) [Volume fraction] 23.2 % Low 35.0 - 47.0 % [facility] Hemoglobin (Bld) [Mass/Vol] 7.2 g/dL Low 11.7 - 16.0 g/dL [facility] Interpretation and review of laboratory results Abnormal [facility] MCH (RBC) [Entitic mass] 26.3 pg 26.0 - 34.0 pg [facility] MCHC (RBC) [Mass/Vol] 31 % 30.5 - 36.0 % [facility] MCV (RBC) [Entitic vol] 84.7 fL 77.0 - 99.0 fL [facility] Platelet mean volume (Bld) [Entitic vol] 9.9 fL 9.0 - 12.7 fL [facility] Platelets (Bld) [#/Vol] 242 10*3/uL 140 - 440 10*3/uL [facility] RBC (Bld) [#/Vol] 2.74 10*6/uL Low 3.80 - 5.2 0 10*6/uL [facility] WBC (Bld) [#/Vol] 7 10*3/uL 3.6 - 10.7 10*3/uL [facility] COMPREHENSIVE METABOLIC PANE Florentin 06-21-2025 Albumin [Mass/Vol] 2.2 g/dL Low 3.4-4.8 [facility] Comment on above: Performed By: #### L AB103, LAB17 ####Cardboard Inserter: NATALIE GARCIA ([phone])[facility] CAMPUSA [place] (SBHLAB)[address] ALP [Catalytic activity/Vol] 113 U/L Normal 40-150 [facility] Comment on above: Performed By: #### L AB103, LAB17 ####Cardboard Inserter: NATALIE GARCIA ([id number])[facility] ([facility])[address] ALT [Catalytic activity/Vol] 8 U/L Normal <30 [facility] Comment on above: Performed By: #### L AB103, LAB17 ####Cardboard Inserter: NATALEI GARCIA ([id number])[facility] CAMPUSA [facility] ([facility])[address] Anion gap [Moles/Vol] 10 mmol/L Normal 3-13 [facility] Comment on above: Performed By: #### L ABDelmar, LAB17 ####Cardboard Inserter: NATALIE GARCIA ([id number])[facility] ([facility])[address] AST [Catalytic activity/Vol] 19 U/L Normal <34 [facility] Comment on above: Performed By: #### L AB103, LAB17 ####Cardboard Inserter: NATALIE GARCIA ([id number])[facility] (SB[facility]AB)[address] Bilirubin [Mass/Vol] 0.6 mg/dL Normal <1.2 [facility] Comment on above: Performed By: #### L AB103, LAB17 ####Cardboard Inserter: NATALIE GARCIA ([id number])[facility] CAMPUSA [place] ([facility])[address] Calcium [Mass/Vol] 8.7 mg/dL Low 8.8-10.0 [facility] Comment on above: Performed By: #### L AB103, LAB17 ####Cardboard Inserter: NATALIE GARCIA ([id number])[facility] CAMPUSA [place] ([facility])[address] Chloride [Moles/Vol] 98 mmol/L Normal 98-107 [facility] Comment on above: Performed By: #### L AB103, LAB17 ####Cardboard Inserter: NATALIE GARCIA ([id number])[facility] CAMPUSA [place] ([facility])[address] CO2 [Moles/Vol] 27 mmol/L Normal 23-31 [facility] Comment on above: Performed By: #### L AB103, LAB17 ####Cardboard Inserter: NATALIE GARCIA ([id number])[facility] CAMPUSA [place] ([facility])[address] Creatinine [Mass/Vol] 2.06 mg/dL High 0.57-1.11 [facility] Comment on above: Performed By: #### L AB103, LAB17 ####Cardboard Inserter: NATALIE GARCIA ([id number])[facility] CAMPUSA [place] ([facility]HL[facility])[address] [place] [address] [place] GLOMERULAR FILTRATION RATE ML/MIN/1.73 SQ M.PREDICTED 24.4 mL/min/1.73m*2 Low >60.0 [facility] Comment on above: Result Comment: Calc ulation based on the Chronic Kidney Disease Epidemiology Collaboration (CKD-EPI) equation refit without adjustment for race Performed By: #### L AB103, LAB17 ####Cardboard Inserter: NATALIE GARCIA ([id number])[facility] CAMPUSA [place] ([facility])[address] [place] [address] [place] Glucose [Mass/Vol] 103 mg/dL Normal 82-115 [facility] Comment on above: Performed By: #### L AB103, LAB17 ####Cardboard Inserter: NATALIE GARCIA ([id number])[facility] CAMPUSA TAMARREHOBOTH MCKIN[facility] CHRIST[facility] HEALTH CARE SERVICESN (SBHLAB)[address] Potassium [Moles/Vol] 3.5 mmol/L Normal 3.5-5.1 [facility] Comment on above: Result Comment: [facility] potassium values may be up to 0.5 mmol/L lower than serum values. Performed By: #### L AB103, LAB17 ####Cardboard Inserter: NATALIE GARCIA ([id number])[facility] CAMPUSA [facility] ([facility])[address] Protein [Mass/Vol] 6.4 g/dL Normal 6.4-8.3 [facility] Comment on above: Performed By: #### L AB103, LAB17 ####Cardboard Inserter: NATALIE GARCIA ([id number])[facility] ([facility])[address] Sodium [Moles/Vol] 135 mmol/L Low 136-145 [facility] Comment on above: Performed By: #### L AB103, LAB17 ####Cardboard Inserter: NATALIE GARCIA ([id number])[facility] ([facility])[address] Urea nitrogen [Mass/Vol] 22 mg/dL Normal 9-23 [facility] Comment on above: Performed By: #### L AB103, LAB17 ####Cardboard Inserter: NATALIE GARCIA ([id number])[facility] ([facility])[address] Comprehensive metabolic 1998 panelon 06-21-2025 Albumin [Mass/Vol] 2.2 g/dL Low 3.4 - 4.8 g/dL [facility] ALP [Catalytic activity/Vol] 113 U/L 40 - 150 U/L [facility] ALT [Catalytic activity/Vol] 8 U/L NINF - 30 U/L [facility] Anion gap [Moles/Vol] 10 mmol/L 3 - 13 mmol/L [facility] AST [Catalytic activity/Vol] 19 U/L NINF - 34 U/L [facility] Bilirubin [Mass/Vol] 0.6 mg/dL NINF - 1.2 mg/dL [facility] Calcium [Mass/Vol] 8.7 mg/dL Low 8.8 - 10. 0 mg/dL [facility] Chloride [Moles/Vol] 98 mmol/L 98 - 10 7 mmol/L [facility] CO2 [Moles/Vol] 27 mmol/L 23 - 31 mmol/L [facility] Creatinine [Mass/Vol] 2.06 mg/dL High 0.57 - 1.11 mg/dL [facility] GFR/1.73 sq M.predicted (S/P/Bld) [Vol rate/Area] 24.4 mL/min Low - PINF [facility] Glucose [Mass/Vol] 103 mg/dL 82 - 115 mg/dL [facility] Interpretation and review of laboratory results Abnormal [facility] Potassium [Moles/Vol] 3.5 mmol/L 3.5 - 5.1 mmol/L [facility] Protein [Mass/Vol] 6.4 g/dL 6.4 - 8.3 g/dL [facility] Sodium [Moles/Vol] 135 mmol/L Low 136 - 145 mmol/L [facility] Urea nitrogen [Mass/Vol] 22 mg/dL 9 - 23 mg/dL [facility] Laboratory - Chemistry and C hemistry - challengeon 06-21-2025 Glucose [Mass/Vol] 93 mg/dL 70 - 100 mg/dL [facility] Glucose [Mass/Vol] 85 mg/dL 70 - 100 mg/dL [facility] Glucose [Mass/Vol] 87 mg/dL 70 - 100 mg/dL [facility] Glucose [Mass/Vol] 75 mg/dL 70 - 100 mg/dL [facility] Magnesium [Mass/Vol] 1.9 mg/dL 1.6 - 2 .6 mg/dL [facility] MAGNESIUMon 06-21-2025 Magnesium [Mass/Vol] 1.9 mg/dL Normal 1.6-2.6 [facility] Comment on above: Result Comment: DORIAN Knight COMMENTS:Higher values can be expected in females during menses. Performed By: #### L AB103, LAB17 ####Cardboard Inserter: NATALIE GARCIA ([id number])[facility] ([facility])[address] [place] [address] Magnesium [Mass/Vol]on 06-21 Interpretation and review of laboratory results Normal [facility] No Panel Informationon 06-21 Interpretation and review of laboratory results Normal [facility] Interpretation and review of laboratory results Normal [facility] Interpretation and review of laboratory results Normal [facility] Interpretation and review of laboratory results Normal [facility] Nursing Noteon 06-21-2025 Nursing Note Normal [facility] Progress Noteon 06-21-2025 Progress [facility] Progress Note Normal [facility] RF Guidance for removal of t unneled CV catheteron 06-21-2025 [facility] RADIOLOGY [facility] RADIOLOGY [facility] Radiology Study observation (narrative) [facility] He alth [id number] 06-20-2025 [id number] Normal [facility] CBC W Auto Differential pane l (Bld)on 06-20-2025 Basophils (Bld) [#/Vol] 0.1 10*3/uL 0.0 - 0.2 10*3/uL [facility] Basophils/100 WBC (Bld) 1 % 0.0 - 2.0 % [facility] Eosinophils (Bld) [#/Vol] 0.2 10*3/uL 0.0 - 0.5 10*3/uL [facility] Eosinophils/100 WBC (Bld) 4 % 0.0 - 6.0 % [facility] Erythrocyte distribution width (RBC) [Ratio] 18.5 % High 11.5 - 15.0 % [facility] Hematocrit (Bld) [Volume fraction] 25.2 % Low 35.0 - 47.0 % [facility] Hemoglobin (Bld) [Mass/Vol] 7.8 g/dL Low 11.7 - 16.0 g/dL [facility] Immature granulocytes (Bld) [#/Vol] 0 10*3/uL NINF - 0.1 10*3/uL [facility] Immature granulocytes/100 WBC (Bld) 0.5 % 0.0 - 2.0 % [facility] Interpretation and review of laboratory results Abnormal [facility] Lymphocytes (Bld) [#/Vol] 0.8 10*3/uL Low 1.0 - 4.3 10*3/uL [facility] Lymphocytes/100 WBC (Bld) 13.9 % Low 15.0 - 45.0 % [facility] [facility] MCH (RBC) [Entitic mass] 26.4 pg 26.0 - 34.0 pg [facility] MCHC (RBC) [Mass/Vol] 31 % 30.5 - 36.0 % [facility] MCV (RBC) [Entitic vol] 85.4 fL 77.0 - 99.0 fL [facility] Monocytes (Bld) [#/Vol] 0.7 10*3/uL 0.0 - 0.9 10*3/uL [facility] Monocytes/100 WBC (Bld) 11.6 % 5.0 - 13.0 % [facility] Neutrophils (Bld) [#/Vol] 4.2 10*3/uL 1.8 - 7.5 10*3/uL [facility] Neutrophils/100 WBC (Bld) 69 % 38.0 - 82.0 % [facility] Nucleated RBC/100 WBC (Bld) [Ratio] 0 % [facility] Platelet mean volume (Bld) [Entitic vol] 10 fL 9.0 - 12.7 fL [facility] Platelets (Bld) [#/Vol] 240 10*3/uL 140 - 440 10*3/uL [facility] RBC (Bld) [#/Vol] 2.95 10*6/uL Low 3.80 - 5.2 0 10*6/uL [facility] WBC (Bld) [#/Vol] 6.1 10*3/uL 3.6 - 10.7 10*3/uL [facility] CBC WITH AUTO DIFFERENTIALon 06-20-2025 Basophils (Bld) [#/Vol] 0.1 10*3/uL Normal 0.0-0.2 [facility] Comment on above: Performed By: #### L [id number] ####Cardboard Inserter: NATALIE GARCIA ([id number])[facility] [place] (SBHLAB)[address] Basophils/100 WBC (Bld) 1.0 % Normal 0.0-2.[address] [facility] Comment on above: Performed By: #### L [id number] ####Cardboard Inserter: NATALIE GARCIA ([id number])[facility] [place] (SBHLAB)[address] Eosinophils (Bld) [#/Vol] 0.2 10*3/uL Normal 0.0-0.5 [facility] Comment on above: Performed By: #### L [id number] ####Cardboard Inserter: NATALIE GARCIA ([id number])[facility] [place] (SBHLAB)[address] Eosinophils/100 WBC (Bld) 4.0 % Normal 0.0-6.0 [facility] Comment on above: Performed By: #### L [id number] ####Cardboard Inserter: NATALIE GARCIA ([id number])[facility]AMPUSA [place] (SBHLAB)[address] [place] [address] Erythrocyte distribution width (RBC) [Ratio] 18.5 % High 11.5-15.0 [facility] Comment on above: Performed By: #### L [id number] ####Cardboard Inserter: NATALIE GARCIA ([id number])[facility] [place] (SBHLAB)[address] [place] [address] Hematocrit (Bld) [Volume fraction] 25.2 % Low 35.0-47.0 [facility] Comment on above: Performed By: #### L [id number] ####Cardboard Inserter: NATALIE GARCIA ([id number])[facility]AMPUSA [place] (SBHLAB)[address] [place] [address] Hemoglobin (Bld) [Mass/Vol] 7.8 g/dL Low 11.7-16.0 [facility] Comment on above: Performed By: #### L [id number] ####Cardboard Inserter: NATALIE GARCIA ([id number])[facility] [place] (SBHLAB)[address] IMMATURE GRANS % 0.5 % Normal 0.0-2.0 [facility] Comment on above: Performed By: #### L [id number] ####Cardboard Inserter: NATALIE GARCIA ([id number])[facility] CAMPUSA BARBREHOBOTH MCK[facility] CARE SERVICESN (SBHLAB)[address] IMMATURE GRANS ABSOLUTE 0.0 10*3/uL Normal <0.1 [facility] Comment on above: Performed By: #### L [id number] ####Cardboard Inserter: NATALIE GARCIA ([id number])[facility]AMPUSA [facility] (SBHLAB)[address] Lymphocytes (Bld) [#/Vol] 0.8 10*3/uL Low 1.0-4.3 [facility] Comment on above: Performed By: #### L [id number] ####Cardboard Inserter: NATALIE GARCIA ([id number])[facility]AMPUSA [facility] (SBHLAB)[address] Lymphocytes/100 WBC (Bld) 13.9 % Low 15.0-45.0 [facility] Comment on above: Performed By: #### L [id number] ####Cardboard Inserter: NATALIE GARCIA ([id number])[facility]AMPUSA [facility] (SBHLAB)[address] MCH (RBC) [Entitic mass] 26.4 pg Normal 26.0-34.0 [facility] Comment on above: Performed By: #### L [id number] ####Cardboard Inserter: NATALIE GARCIA ([id number])[facility]AMPUSA BARBREHOB[facility] C[facility] SERVICESN (SBHLAB)[address] MCHC 31.0 % Normal 30.5-36.0 [facility] Comment on above: Performed By: #### L [id number] ####Cardboard Inserter: NATALIE GARCIA ([id number])[facility]AMPUSA [facility] (SBHLAB)[address] MCV (RBC) [Entitic vol] 85.4 fL Normal 77.0-99.0 [facility] Comment on above: Performed By: #### L [id number] ####Cardboard Inserter: NATALIE GARCIA ([id number])[facility] [place] (SBHLAB)[address] Monocytes (Bld) [#/Vol] 0.7 10*3/uL Normal 0.0-0.9 [facility] Comment on above: Performed By: #### L [id number] ####Cardboard Inserter: NATALIE GARCIA ([id number])[facility] [place] (SBHLAB)[address] Monocytes/100 WBC (Bld) 11.6 % Normal 5.0-13.0 [facility] Comment on above: Performed By: #### L [id number] ####Cardboard Inserter: NATALIE GARCIA ([id number])[facility] [place] (SBHLAB)[address] NEUTROPHILS ABSOLUTE 4.2 10*3/uL Normal 1.8-7.5 [facility] Comment on above: Performed By: #### L [id number] ####Cardboard Inserter: NATALIE GARCIA ([id number])[facility] [place] (SBHLAB)[address] Neutrophils/100 WBC (Bld) 69.0 % Normal 38.0-82.0 [facility] Comment on above: Performed By: #### L [id number] ####Cardboard Inserter: NATALIE GARCIA ([id number])[facility] [place] (SBHLAB)[address] NRBC 0.0 /100 WBCs Normal 0.0-2.0 [facility] Comment on above: Performed By: #### L [id number] ####Cardboard Inserter: NATALIE GARCIA ([id number])[facility] [place] (SBHLAB)[address] Platelet mean volume (Bld) [Entitic vol] 10.0 fL Normal 9.0-12.7 [facility] Comment on above: Performed By: #### L [id number] ####Cardboard Inserter: NATALIE GARCIA ([id number])[facility] [place] (SBHLAB)[address] Platelets (Bld) [#/Vol] 240 10*3/uL Normal 140-440 [facility] Comment on above: Performed By: #### L [id number] ####Cardboard Inserter: NATALIE GARCIA ([id number])[facility] [place] (SBHLAB)[address] RBC (Bld) [#/Vol] 2.95 10*6/uL Low 3.80-5.20 [facility] Comment on above: Performed By: #### L [id number] ####Cardboard Inserter: NATALIE GARCIA ([id number])[facility] [place] (SBHLAB)[address] WBC (Bld) [#/Vol] 6.1 10*3/uL Normal 3.6-10.7 [facility] Comment on above: Performed By: #### L [id number] ####Cardboard Inserter: NATALIE GARCIA ([id number])[facility]AMPUSA BARBREHOBOTH MCK[facility] SERVICESN (SBHLAB)[address] COMPREHENSIVE METABOLIC PANE Florentin 06-20-2025 Albumin [Mass/Vol] 2.3 g/dL Low 3.4-4.8 [facility] Comment on above: Performed By: #### L [id number] ####Cardboard Inserter: NATALIE GARCIA ([id number])[facility] [place] (SBHL[facility])[address] ALP [Catalytic activity/Vol] 123 U/L Normal 40-150 [facility] Comment on above: Performed By: #### L [id number] ####Cardboard Inserter: NATALIE GARCIA ([id number])[facility] [place] (SBHLAB)[address] [place] [address] [place] ALT [Catalytic activity/Vol] 9 U/L Normal <30 [facility] Comment on above: Performed By: #### L [id number] ####Cardboard Inserter: NATALIE GARCIA ([id number])[facility] [place] (SBHLAB)[address] Anion gap [Moles/Vol] 12 mmol/L Normal 3-13 [facility] Comment on above: Performed By: #### L [id number] ####Cardboard Inserter: NATALIE GARCIA ([id number])[facility] [place] (SBHLAB)[address] AST [Catalytic activity/Vol] 19 U/L Normal <34 [facility] Comment on above: Performed By: #### L [id number] ####Cardboard Inserter: NATALIE GARCIA ([id number])[facility]AMPUSA [place] (SBHLAB)[address] Bilirubin [Mass/Vol] 0.6 mg/dL Normal <1.2 [facility] Comment on above: Performed By: #### L [id number] ####Cardboard Inserter: NATALIE GARCIA ([id number])[facility] [place] (SBHLAB)[address] Calcium [Mass/Vol] 9.1 mg/dL Normal 8.8-10.0 [facility] Comment on above: Performed By: #### L [id number] ####Cardboard Inserter: NATALIE GARCIA ([id number])[facility] [place] (SBHLAB)[address] [place] [address] [place] Chloride [Moles/Vol] 97 mmol/L Low 98-107 [facility] Comment on above: Performed By: #### L [id number] ####Cardboard Inserter: NATALIE GARCIA ([id number])[facility] [place] (SBHLAB)[address] [place] [address] [place] CO2 [Moles/Vol] 26 mmol/L Normal 23-31 [facility] Comment on above: Performed By: #### L [id number] ####Cardboard Inserter: NATALIE GARCIA ([id number])[facility] Creatinine [Mass/Vol] 2.85 mg/dL High 0.57-1.11 [facility] Comment on above: Performed By: #### L [id number] ####Cardboard Inserter: NATALIE GARCIA ([id number])[facility])[address] GLOMERULAR FILTRATION RATE ML/MIN/1.73 SQ M.PREDICTED 16.5 mL/min/1.73m*2 Low >60.0 [facility] Comment on above: Result Comment: Calc ulation based on the Chronic Kidney Disease Epidemiology Collaboration (CKD-EPI) equation refit without adjustment for race Performed By: #### L [id number] ####Cardboard Inserter: NATALIE GARCIA ([id number])[facility] Glucose [Mass/Vol] 129 mg/dL High 82-115 [facility] Comment on above: Performed By: #### L [id number] ####Cardboard Inserter: NATALIE GARCIA ([id number])[facility] ([facility])[address] [place] [address] Potassium [Moles/Vol] 3.9 mmol/L Normal 3.5-5.1 [facility] Comment on above: Result Comment: [facility] potassium values may be up to 0.5 mmol/L lower than serum values. Performed By: #### L [id number] ####Cardboard Inserter: NATALIE GARCIA ([id number])[facility] ([facility])[address] Protein [Mass/Vol] 6.5 g/dL Normal 6.4-8.3 [facility] Comment on above: Performed By: #### L [id number] ####Cardboard Inserter: NATALIE GARCIA ([id number])[facility] (SBHLAB)[address] Sodium [Moles/Vol] 135 mmol/L Low 136-145 [facility] Comment on above: Performed By: #### L [id number] ####Cardboard Inserter: NATALIE DENISETRICIA ([id number])[facility] CAMPUSJosé Miguel [place] (SBHLAB)[address] Urea nitrogen [Mass/Vol] 35 mg/dL High 9-23 [facility] Comment on above: Performed By: #### L [id number] ####Cardboard Inserter: NATALIE GARCIA ([id number])[facility] TAMARREHOBOTH MCK[facility]ALTH CARE SERVICESLaurel (SBHLAB)[address] Comprehensive metabolic 1998 panelon 06-20-2025 Albumin [Mass/Vol] 2.3 g/dL Low 3.4 - 4.8 g/dL [facility] ALP [Catalytic activity/Vol] 123 U/L 40 - 150 U/L [facility] ALT [Catalytic activity/Vol] 9 U/L NINF - 30 U/L [facility] Anion gap [Moles/Vol] 12 mmol/L 3 - 13 mmol/L [facility] AST [Catalytic activity/Vol] 19 U[facility] U/L [facility] Bilirubin [Mass/Vol] 0.6 mg/dL NINF - 1.2 mg/dL [facility] Calcium [Mass/Vol] 9.1 mg/dL 8.8 - 10. 0 mg/dL [facility] Chloride [Moles/Vol] 97 mmol/L Low 98 - 10 7 mmol/L [facility] CO2 [Moles/Vol] 26 mmol/L 23 - 31 mmol/L [facility] Creatinine [Mass/Vol] 2.85 mg/dL High 0.57 - 1.11 mg/dL [facility] GFR/1.73 sq M.predicted (S/P/Bld) [Vol rate/Area] 16.5 mL/min Low - PINF [facility] Glucose [Mass/Vol] 129 mg/dL High 82 - 115 mg/dL [facility] Interpretation and review of laboratory results Abnormal [facility] Potassium [Moles/Vol] 3.9 mmol/L 3.5 - 5.1 mmol/L [facility] Protein [Mass/Vol] 6.5 g/dL 6.4 - 8.3 g/dL [facility] Sodium [Moles/Vol] 135 mmol/L Low 136 - 145 mmol/L [facility] Urea nitrogen [Mass/Vol] 35 mg/dL High 9 - 23 mg/dL [facility] Laboratory - Chemistry and C hemistry - challengeon 06-20-2025 Glucose [Mass/Vol] 118 mg/dL High 70 - 100 mg/dL [facility] Glucose [Mass/Vol] 108 mg/dL High 70 - 100 mg/dL [facility] Glucose [Mass/Vol] 127 mg/dL High 70 - 100 mg/dL [facility] Glucose [Mass/Vol] 127 mg/dL High 70 - 100 mg/dL [facility] No Panel Informationon 06-20 Interpretation and review of laboratory results Abnormal [facility] Interpretation and review of laboratory results Abnormal Former[facility] Interpretation and review of laboratory results Abnormal [facility] Interpretation and review of laboratory results Abnormal [facility] Nursing Noteon 06-20-2025 Nursing Note Normal [facility] Progress Noteon 06-20-2025 Progress [facility] Progress Note No SBT indicated due to PT vent dependent. Normal [facility] Progress Note Normal [facility] Progress [facility] Normal [facility] Progress [facility] Normal [facility] Progress Note Normal [facility] Progress Note Normal [facility] [id number] 06-19-2025 [id number] Normal [facility] CBC W Auto Differential pane l (Bld)on 06-19-2025 Basophils (Bld) [#/Vol] 0.1 10*3/uL 0.0 - 0.2 10*3/uL [facility] Basophils/100 WBC (Bld) 0.9 % 0.0 - 2.0 % [facility] Eosinophils (Bld) [#/Vol] 0.2 10*3/uL 0.0 - 0.5 10*3/uL [facility] Eosinophils/100 WBC (Bld) 2.2 % 0.0 - 6.0 % [facility] Erythrocyte distribution width (RBC) [Ratio] 18.2 % High 11.5 - 15.0 % [facility] Hematocrit (Bld) [Volume fraction] 25 % Low 35.0 - 47.0 % [facility] Hemoglobin (Bld) [Mass/Vol] 7.8 g/dL Low 11.7 - 16.0 g/dL [facility] Immature granulocytes (Bld) [#/Vol] 0 10*3/uL NINF - 0.1 10*3/uL [facility] Immature granulocytes/100 WBC (Bld) 0.3 % 0.0 - 2.0 % [facility] Interpretation and review of laboratory results Abnormal [facility] Lymphocytes (Bld) [#/Vol] 1 10*3/uL 1.0 - 4.3 10*3/uL [facility] Lymphocytes/100 WBC (Bld) 13.6 % Low 15.0 - 45.0 % [facility] MCH (RBC) [Entitic mass] 26.8 pg 26.0 - 34.0 pg [facility] MCHC (RBC) [Mass/Vol] 31.2 % 30.5 - 36.0 % [facility] MCV (RBC) [Entitic vol] 85.9 fL 77.0 - 99.0 fL [facility] Monocytes (Bld) [#/Vol] 0.8 10*3/uL 0.0 - 0.9 10*3/uL [facility] Monocytes/100 WBC (Bld) 10.2 % 5.0 - 13.0 % [facility] Neutrophils (Bld) [#/Vol] 5.5 10*3/uL 1.8 - 7.5 10*3/uL [facility] Neutrophils/100 WBC (Bld) 72.8 % 38.0 - 82.0 % [facility] Nucleated RBC/100 WBC (Bld) [Ratio] 0 % [facility] Platelet mean volume (Bld) [Entitic vol] 9.9 fL 9.0 - 12.7 fL [facility] Platelets (Bld) [#/Vol] 250 10*3/uL 140 - 440 10*3/uL [facility] RBC (Bld) [#/Vol] 2.91 10*6/uL Low 3.80 - 5.2 0 10*6/uL [facility] WBC (Bld) [#/Vol] 7.6 10*3/uL 3.6 - 10.7 10*3/uL [facility] CBC WITH AUTO DIFFERENTIALon 06-19-2025 Basophils (Bld) [#/Vol] 0.1 10*3/uL Normal 0.0-0.2 [facility] Comment on above: Performed By: #### L [id number] ####Cardboard Inserter: NATALIE GARCIA ([id number])[facility] CAMPUSA BARBREHOBOTH MCKINLEY CHRIST[facility] HEALTH CARE SERVICESN (SBHLAB)[address] Basophils/100 WBC (Bld) 0.9 % Normal 0.0-2.0 [facility] Comment on above: Performed By: #### L [id number] ####Cardboard Inserter: NATALIE GARCIA ([id number])[facility] (SBAB)[address] [place] [address] Eosinophils (Bld) [#/Vol] 0.2 10*3/uL Normal 0.0-0.5 [facility] Comment on above: Performed By: #### L [id number] ####Cardboard Inserter: NATALIE GARCIA ([id number])[facility]AMPUSA [place] (SBAB)[address] Eosinophils/100 WBC (Bld) 2.2 % Normal 0.0-6.0 [facility] Comment on above: Performed By: #### L [id number] ####Cardboard Inserter: NATALIE GARCIA ([id number])[facility]OSPITALLa[facility] (SBAB)[address] Erythrocyte distribution width (RBC) [Ratio] 18.2 % High 11.5-15.0 [facility] Comment on above: Performed By: #### L [id number] ####Cardboard Inserter: NATALIE GARCIA ([id number])[facility] (SBAB)[address] [place] [address] Hematocrit (Bld) [Volume fraction] 25.0 % Low 35.0-47.0 [facility] Comment on above: Performed By: #### L [id number] ####Cardboard Inserter: NATALIE DENISETRICIA ([id number])[facility] CAMPUSJosé Miguel MONTENEGROLaurel (SBHLAB)[address] Hemoglobin (Bld) [Mass/Vol] 7.8 g/dL Low 11.7-16.0 [facility] Comment on above: Performed By: #### L [id number] ####Cardboard Inserter: NATALIE DENISETRICIA ([id number])[facility] CAMPUSJosé Miguel BARBREHOBOTH MCK[facility]LEY CHRI[facility]ALTH CARE SERVICESN (SBHLAB)[address] IMMATURE GRANS % 0.3 % Normal 0.0-2.0 [facility] Comment on above: Performed By: #### L [id number] ####Cardboard Inserter: NATALIE DENISETRICIA ([id number])[facility] CAMPUSJosé Miguel [place] ([facility])[address] IMMATURE GRANS ABSOLUTE 0.0 10*3/uL Normal <0.1 [facility] Comment on above: Performed By: #### L [id number] ####Cardboard Inserter: NATALIE DENISETRICIA ([id number])[facility] CAMPUSJosé Miguel [place] ([facility])[address] Lymphocytes (Bld) [#/Vol] 1.0 10*3/uL Normal 1.0-4.3 [facility] Comment on above: Performed By: #### L [id number] ####Cardboard Inserter: NATALIE GARCIA ([id number])[facility] CAMPUSJosé Miguel [place] (SBAB)[address] [place] [address] [place] Lymphocytes/100 WBC (Bld) 13.6 % Low 15.0-45.0 [facility] Comment on above: Performed By: #### L [id number] ####Cardboard Inserter: NATALIE GARCIA ([id number])[facility] CAMPUSJosé Miguel [facility] (SBAB)[address] MCH (RBC) [Entitic mass] 26.8 pg Normal 26.0-34.0 [facility] Comment on above: Performed By: #### L [id number] ####Cardboard Inserter: NATALIE GARCIA ([id number])[facility] BARBMAGNUSN (SBHLAB)[address] MCHC 31.2 % Normal 30.5-36.0 [facility] Comment on above: Performed By: #### L [id number] ####Cardboard Inserter: NATALIE GARCIA ([id number])[facility] (SBHLAB)[address] MCV (RBC) [Entitic vol] 85.9 fL Normal 77.0-99.0 [facility] Comment on above: Performed By: #### L [id number] ####Cardboard Inserter: NATALIE GARCIA ([id number])[facility] [place] (SBHLAB)[address] [place] [address] Monocytes (Bld) [#/Vol] 0.8 10*3/uL Normal 0.0-0.9 [facility] Comment on above: Performed By: #### L [id number] ####Cardboard Inserter: NATALIE GARCIA ([id number])[facility] (SBHLAB)[address] Monocytes/100 WBC (Bld) 10.2 % Normal 5.0-13.0 [facility] Comment on above: Performed By: #### L [id number] ####Cardboard Inserter: NATALIE GARCIA ([id number])[facility] (SBHLAB)[address] [place] [address] NEUTROPHILS ABSOLUTE 5.5 10*3/uL Normal 1.8-7.5 [facility] Comment on above: Performed By: #### L [id number] ####Cardboard Inserter: NATALIE GARCIA ([id number])[facility] (SBHLAB)[address] Neutrophils/100 WBC (Bld) 72.8 % Normal 38.0-82.0 [facility] Comment on above: Performed By: #### L [id number] ####Cardboard Inserter: NATALIE GARCIA ([id number])[facility] (SBHLAB)[address] NRBC 0.0 /100 WBCs Normal 0.0-2.0 [facility] Comment on above: Performed By: #### L [id number] ####Cardboard Inserter: NATALIE GARCIA ([id number])[facility] CAMPUSA [place] (SBHLAB)[address] Platelet mean volume (Bld) [Entitic vol] 9.9 fL Normal 9.0-12.7 [facility] Comment on above: Performed By: #### L [id number] ####Cardboard Inserter: NATALIE GARCIA ([id number])[facility] CAMPUSA [place] (SBHLAB)[address] Platelets (Bld) [#/Vol] 250 10*3/uL Normal 140-440 [facility] Comment on above: Performed By: #### L [id number] ####Cardboard Inserter: NATALIE DENISETRICIA ([id number])[facility]AMPUSA [place] (SBHLAB)[address] [place] [address] RBC (Bld) [#/Vol] 2.91 10*6/uL Low 3.80-5.20 [facility] Comment on above: Performed By: #### L [id number] ####Cardboard Inserter: NATALIE GARCIA ([id number])[facility]AMPUSA [place] (SBHLAB)[address] WBC (Bld) [#/Vol] 7.6 10*3/uL Normal 3.6-10.7 [facility] Comment on above: Performed By: #### L [id number] ####Cardboard Inserter: NATALIE DENISETRICIA ([id number])[facility] [place] (SB[facility])[address] COMPREHENSIVE METABOLIC PANE Florentin 06-19-2025 Albumin [Mass/Vol] 2.5 g/dL Low 3.4-4.8 [facility] Comment on above: Performed By: #### L [id number] ####Cardboard Inserter: NATALIE DENISETRICIA ([id number])[facility] [place] (SBHLAB)[address] ALP [Catalytic activity/Vol] 129 U/L Normal 40-150 [facility] Comment on above: Performed By: #### L [id number] ####Cardboard Inserter: NATALIE SIMONDANIEL ([id number])[facility] [place] (SB[facility]AB)155 [place] [address] [place] ALT [Catalytic activity/Vol] 10 U/L Normal <30 [facility] Comment on above: Performed By: #### L [id number] ####Cardboard Inserter: NATALIE SIMONDANIEL ([id number])[facility] [place] (SB[facility])[address] Anion gap [Moles/Vol] 9 mmol/L Normal 3-13 [facility] Comment on above: Performed By: #### L [id number] ####Cardboard Inserter: NATALIE DENISETRICIA ([id number])[facility] [place] (SB[facility])[address] AST [Catalytic activity/Vol] 24 U/L Normal <34 [facility] Comment on above: Performed By: #### L [id number] ####Cardboard Inserter: NATALIE DENISETRICIA ([id number])[facility] [place] (SBHLAB)[address] Bilirubin [Mass/Vol] 0.7 mg/dL Normal <1.2 [facility] Comment on above: Performed By: #### L [id number] ####Cardboard Inserter: NATALIE DENISETRICIA ([id number])[facility] [place] (SBHLAB)[address] Calcium [Mass/Vol] 9.1 mg/dL Normal 8.8-10.0 [facility] Comment on above: Performed By: #### L [id number] ####Cardboard Inserter: NATALIE GARCIA ([id number])[facility] [place] (SBHLAB)[address] Chloride [Moles/Vol] 99 mmol/L Normal 98-107 [facility] Comment on above: Performed By: #### L [id number] ####Cardboard Inserter: NATALIE DENISETRICIA ([id number])[facility] CAMPUSJosé Miguel [place] (SBHLAB)[address] CO2 [Moles/Vol] 27 mmol/L Normal 23-31 [facility] Comment on above: Performed By: #### L [id number] ####Cardboard Inserter: NATALIE DENISETRICIA ([id number])[facility] (SBHLAB)[address] Creatinine [Mass/Vol] 2.33 mg/dL High 0.57-1.11 [facility] Comment on above: Performed By: #### L [id number] ####Cardboard Inserter: NATALIE DENISETRICIA ([id number])[facility] CAMPUSJosé Miguel [facility] (SBHLAB)[address] GLOMERULAR FILTRATION RATE ML/MIN/1.73 SQ M.PREDICTED 21.1 mL/min/1.73m*2 Low >60.0 [facility] Comment on above: Result Comment: Calc ulation based on the Chronic Kidney Disease Epidemiology Collaboration (CKD-EPI) equation refit without adjustment for race Performed By: #### L [id number] ####Cardboard Inserter: NATALIE GARCIA ([id number])[facility] CAMPUSJosé Miguel [facility]BREHOB[facility] SERVICESN (SBHLAB)[address] Glucose [Mass/Vol] 126 mg/dL High 82-115 [facility] Comment on above: Performed By: #### L [id number] ####Cardboard Inserter: NATALIE GARCIA ([id number])[facility] (SBHLAB)[address] Potassium [Moles/Vol] 4.0 mmol/L Normal 3.5-5.1 [facility] Comment on above: Result Comment: [facility] potassium values may be up to 0.5 mmol/L lower than serum values. Performed By: #### L [id number] ####Cardboard Inserter: NATALIE GARCIA ([id number])[facility] CAMPUSJosé Miguel [place] (SBHLAB)[address] Protein [Mass/Vol] 6.8 g/dL Normal 6.4-8.3 [facility] Comment on above: Performed By: #### L [id number] ####Cardboard Inserter: NATALIE GARCIA ([id number])[facility] CAMPUSJosé Miguel REHMANREHOB[facility] SERVICESN (SBHLAB)[address] Sodium [Moles/Vol] 135 mmol/L Low 136-145 [facility] Comment on above: Performed By: #### L [id number] ####Cardboard Inserter: NATALIE GARCIA ([id number])[facility] CAMPUSJosé Miguel REHMANREHOB[facility] SERVICESN (SBHLAB)[address] Urea nitrogen [Mass/Vol] 23 mg/dL Normal 9-23 [facility] Comment on above: Performed By: #### L [id number] ####Cardboard Inserter: NATALIE GARCIA ([id number])[facility] CAMPUSJosé Miguel [place] (SBHLAB)[address] Comprehensive metabolic 1998 panelon 06-19-2025 Albumin [Mass/Vol] 2.5 g/dL Low 3.4 - 4.8 g/dL [facility] ALP [Catalytic activity/Vol] 129 U/L 40 - 150 U/L [facility] ALT [Catalytic activity/Vol] 10 U/L NINF - 30 U/L [facility] Anion gap [Moles/Vol] 9 mmol/L 3 - 13 mmol/L [facility] AST [Catalytic activity/Vol] 24 U/L NINF - 34 U/L [facility] Bilirubin [Mass/Vol] 0.7 mg/dL NINF - 1.2 mg/dL [facility] Calcium [Mass/Vol] 9.1 mg/dL 8.8 - 10. 0 mg/dL [facility] Chloride [Moles/Vol] 99 mmol/L 98 - 10 7 mmol/L [facility] CO2 [Moles/Vol] 27 mmol/L 23 - 31 mmol/L [facility] Creatinine [Mass/Vol] 2.33 mg/dL High 0.57 - 1.11 mg/dL [facility] GFR/1.73 sq M.predicted (S/P/Bld) [Vol rate/Area] 21.1 mL/min Low - PINF [facility] Glucose [Mass/Vol] 126 mg/dL High 82 - 115 mg/dL [facility] Interpretation and review of laboratory results Abnormal [facility] Potassium [Moles/Vol] 4 mmol/L 3.5 - 5.1 mmol/L [facility] Protein [Mass/Vol] 6.8 g/dL 6.4 - 8.3 g/dL [facility] Sodium [Moles/Vol] 135 mmol/L Low 136 - 145 mmol/L [facility] Urea nitrogen [Mass/Vol] 23 mg/dL 9 - 23 mg/dL [facility] Laboratory - Chemistry and C hemistry - challengeon 06-19-2025 Glucose [Mass/Vol] 142 mg/dL High 70 - 100 mg/dL [facility] Glucose [Mass/Vol] 126 mg/dL High 70 - 100 mg/dL [facility] Glucose [Mass/Vol] 146 mg/dL High 70 - 100 mg/dL [facility] Glucose [Mass/Vol] 132 mg/dL High 70 - 100 mg/dL [facility] Glucose [Mass/Vol] 125 mg/dL High 70 - 100 mg/dL [facility] No Panel Informationon 06-19 Interpretation and review of laboratory results Abnormal [facility] N[facility] Interpretation and review of laboratory results Abnormal Formerly N[facility] Interpretation and review of laboratory results Abnormal Formerly N[facility] Interpretation and review of laboratory results Abnormal Formerly N[facility] Interpretation and review of laboratory results Abnormal Formerly N[facility] Progress Noteon 06-19-2025 Progress Note [facility] Progress [facility] Normal [facility] Progress Note Normal [facility] Progress Note Normal [facility] Progress Note Normal [facility] Progress Note Normal [facility] [id number] 06-18-2025 [id number] Normal [facility] CBC W Auto Differential pane l (Bld)on 06-18-2025 Basophils (Bld) [#/Vol] 0.1 10*3/uL 0.0 - 0.2 10*3/uL [facility] Basophils/100 WBC (Bld) 1 % 0.0 - 2.0 % [facility] Eosinophils (Bld) [#/Vol] 0.2 10*3/uL 0.0 - 0.5 10*3/uL [facility] Eosinophils/100 WBC (Bld) 3.5 % 0.0 - 6.0 % [facility] Erythrocyte distribution width (RBC) [Ratio] 18.2 % High 11.5 - 15.0 % [facility] Hematocrit (Bld) [Volume fraction] 24.4 % Low 35.0 - 47.0 % [facility] Hemoglobin (Bld) [Mass/Vol] 7.6 g/dL Low 11.7 - 16.0 g/dL [facility] Immature granulocytes (Bld) [#/Vol] 0 10*3/uL NINF - 0.1 10*3/uL [facility] Immature granulocytes/100 WBC (Bld) 0.3 % 0.0 - 2.0 % [facility] Interpretation and review of laboratory results Abnormal [facility] Lymphocytes (Bld) [#/Vol] 0.9 10*3/uL Low 1.0 - 4.3 10*3/uL [facility] Lymphocytes/100 WBC (Bld) 14.9 % Low 15.0 - 45.0 % [facility] MCH (RBC) [Entitic mass] 26.7 pg 26.0 - 34.0 pg [facility] MCHC (RBC) [Mass/Vol] 31.1 % 30.5 - 36.0 % [facility] MCV (RBC) [Entitic vol] 85.6 fL 77.0 - 99.0 fL [facility] Monocytes (Bld) [#/Vol] 0.6 10*3/uL 0.0 - 0.9 10*3/uL [facility] Monocytes/100 WBC (Bld) 9.9 % 5.0 - 13.0 % [facility] Neutrophils (Bld) [#/Vol] 4.4 10*3/uL 1.8 - 7.5 10*3/uL [facility] Neutrophils/100 WBC (Bld) 70.4 % 38.0 - 82.0 % [facility] Nucleated RBC/100 WBC (Bld) [Ratio] 0 % [facility] Platelet mean volume (Bld) [Entitic vol] 10.4 fL 9.0 - 12.7 fL [facility] Platelets (Bld) [#/Vol] 237 10*3/uL 140 - 440 10*3/uL [facility] RBC (Bld) [#/Vol] 2.85 10*6/uL Low 3.80 - 5.2 0 10*6/uL [facility] WBC (Bld) [#/Vol] 6.3 10*3/uL 3.6 - 10.7 10*3/uL [facility] CBC WITH AUTO DIFFERENTIALon 06-18-2025 Basophils (Bld) [#/Vol] 0.1 10*3/uL Normal 0.0-0.2 [facility] Comment on above: Performed By: #### L [id number] ####Cardboard Inserter: NATALIE GARCIA ([id number])[facility] [place] [address] Basophils/100 WBC (Bld) 1.0 % Normal 0.0-2.[address] [facility] Comment on above: Performed By: #### L [id number] ####Cardboard Inserter: NATALIE GARCIA ([id number])[facility] ([facility])[address] [place] [address] Eosinophils (Bld) [#/Vol] 0.2 10*3/uL Normal 0.0-0.5 [facility] Comment on above: Performed By: #### L [id number] ####Cardboard Inserter: NATALIE GARCIA ([id number])[facility] [place] [address] [place] Eosinophils/100 WBC (Bld) 3.5 % Normal 0.0-6.0 [facility] Comment on above: Performed By: #### L [id number] ####Cardboard Inserter: NATALIE GARCIA ([id number])[facility])[address] [place] [address] Erythrocyte distribution width (RBC) [Ratio] 18.2 % High 11.5-15.0 [facility] Comment on above: Performed By: #### L [id number] ####Cardboard Inserter: NATALIE SIMONErlindaTRICIA ([id number])[facility]AMPUSA [facility] [place] [address] Hematocrit (Bld) [Volume fraction] 24.4 % Low 35.0-47.0 [facility] Comment on above: Performed By: #### L [id number] ####Cardboard Inserter: NATALIE SIMONDANIEL ([id number])[facility]AMPUSA [facility] [place] [address] Hemoglobin (Bld) [Mass/Vol] 7.6 g/dL Low 11.7-16.0 [facility] Comment on above: Performed By: #### L [id number] ####Cardboard Inserter: NATALIE DENISETRICIA ([id number])[facility]AMPUSA [facility] ([facility])[address] [place] [address] IMMATURE GRANS % 0.3 % Normal 0.0-2.0 [facility] Comment on above: Performed By: #### L [id number] ####Cardboard Inserter: NATALIE GARCIA ([id number])[facility]AMPUSA [facility] ([facility])[address] [place] [address] IMMATURE GRANS ABSOLUTE 0.0 10*3/uL Normal <0.1 [facility] Comment on above: Performed By: #### L [id number] ####Cardboard Inserter: NATALIE DENISETRICIA ([id number])[facility]AMPUSA [facility] [place] [address] Lymphocytes (Bld) [#/Vol] 0.9 10*3/uL Low 1.0-4.3 [facility] Comment on above: Performed By: #### L [id number] ####Cardboard Inserter: NATALIE DENISETRICIA ([id number])[facility]AMPUSA [facility] [place] [address] Lymphocytes/100 WBC (Bld) 14.9 % Low 15.0-45.0 [facility] Comment on above: Performed By: #### L [id number] ####Cardboard Inserter: NATALIE SIMONErlindaTRICIA ([id number])[facility] CAMPUSJosé Miguel REHMANMAGNUSN (SBHLAB)[address] MCH (RBC) [Entitic mass] 26.7 pg Normal 26.0-34.0 [facility] Comment on above: Performed By: #### L [id number] ####Cardboard Inserter: NATALIE JOSE ([id number])[facility] CAMPUSJosé Miguel [place] (SBHLAB)[address] MCHC 31.1 % Normal 30.5-36.0 [facility] Comment on above: Performed By: #### L [id number] ####Cardboard Inserter: NATALIE JOSE ([id number])[facility]AMPUSJos[facility] Miguel [place] (SBHLAB)[address] [place] [address] MCV (RBC) [Entitic vol] 85.6 fL Normal 77.0-99.0 [facility] Comment on above: Performed By: #### L [id number] ####Cardboard Inserter: NATALIE DENISETRICIA ([id number])[facility]AMPUSJosé Miguel [facility] (SBHL[facility])[address] [place] [address] Monocytes (Bld) [#/Vol] 0.6 10*3/uL Normal 0.0-0.9 [facility] Comment on above: Performed By: #### L [id number] ####Cardboard Inserter: NATALIE GARCIA ([id number])[facility] CAMPUSJosé Miguel [facility] (SBHLAB)[address] Monocytes/100 WBC (Bld) 9.9 % Normal 5.0-13.0 [facility] Comment on above: Performed By: #### L [id number] ####Cardboard Inserter: NATALIE GARCIA ([id number])[facility] CAMPUSJosé Miguel [facility] (SBHLAB)[address] [place] [address] NEUTROPHILS ABSOLUTE 4.4 10*3/uL Normal 1.8-7.5 [facility] Comment on above: Performed By: #### L [id number] ####Cardboard Inserter: NATALIE GARCIA ([id number])[facility]AMPUSA [place] (SBHLAB)[address] Neutrophils/100 WBC (Bld) 70.4 % Normal 38.0-82.0 [facility] Comment on above: Performed By: #### L [id number] ####Cardboard Inserter: NATALIE GARCIA ([id number])[facility]AMP[facility] [place] (SBHLAB)[address] NRBC 0.0 /100 WBCs Normal 0.0-2.0 [facility] Comment on above: Performed By: #### L [id number] ####Cardboard Inserter: NATALIE GARCIA ([id number])[facility]AMP[facility] [place] (SBHLAB)[address] Platelet mean volume (Bld) [Entitic vol] 10.4 fL Normal 9.0-12.7 [facility] Comment on above: Performed By: #### L [id number] ####Cardboard Inserter: NATALIE GARCIA ([id number])[facility]AMP[facility] [place] (SBHLAB)[address] [place] [address] [place] Platelets (Bld) [#/Vol] 237 10*3/uL Normal 140-440 [facility] Comment on above: Performed By: #### L [id number] ####Cardboard Inserter: NATALIE GARCIA ([id number])[facility]AMPUSA [place] (SBHLAB)[address] [place] [address] [place] RBC (Bld) [#/Vol] 2.85 10*6/uL Low 3.80-5.20 [facility] Comment on above: Performed By: #### L [id number] ####Cardboard Inserter: NATALIE GARCIA ([id number])[facility]AMPUSA [place] (SBHLAB)[address] [place] [address] [place] WBC (Bld) [#/Vol] 6.3 10*3/uL Normal 3.6-10.7 [facility] Comment on above: Performed By: #### L [id number] ####Cardboard Inserter: NATALIE GARCIA ([id number])[facility] CAMPUSA [facility]REHOB[facility]N (SBHLAB)[address] COMPREHENSIVE METABOLIC PANE Florentin 06-18-2025 Albumin [Mass/Vol] 2.1 g/dL Low 3.4-4.8 [facility] Comment on above: Performed By: #### L [id number] ####Cardboard Inserter: NATALIE GARCIA ([id number])[facility] CAMPUSA BARBREHOBOTH [facility] SERVICESN (SBHLAB)[address] ALP [Catalytic activity/Vol] 122 U/L Normal 40-150 [facility] Comment on above: Performed By: #### L [id number] ####Cardboard Inserter: NATALIE GARCIA ([id number])[facility] (HLAB)[address] ALT [Catalytic activity/Vol] 13 U/L Normal <30 [facility] Comment on above: Performed By: #### L [id number] ####Cardboard Inserter: NATALIE GARCIA ([id number])[facility] (HLAB)[address] Anion gap [Moles/Vol] 11 mmol/L Normal 3-13 [facility] Comment on above: Performed By: #### L [id number] ####Cardboard Inserter: NATALIE GARCIA ([id number])[facility] (HL[facility])[address] AST [Catalytic activity/Vol] 24 U/L Normal <34 [facility] Comment on above: Performed By: #### L [id number] ####Cardboard Inserter: NATALIE GARCIA ([id number])[facility] (HL[facility])[address] Bilirubin [Mass/Vol] 0.6 mg/dL Normal <1.2 [facility] Comment on above: Performed By: #### L [id number] ####Cardboard Inserter: NATALIE GARCIA ([id number])[facility] [place] (SBHLAB)[address] Calcium [Mass/Vol] 8.9 mg/dL Normal 8.8-10.0 [facility] Comment on above: Performed By: #### L [id number] ####Cardboard Inserter: NATALIE GARCIA ([id number])[facility]AMP[facility] [place] (SBHLAB)[address] Chloride [Moles/Vol] 98 mmol/L Normal 98-107 [facility] Comment on above: Performed By: #### L [id number] ####Cardboard Inserter: NATALIE GARCIA ([id number])[facility] [place] (SBHLAB)[address] CO2 [Moles/Vol] 24 mmol/L Normal 23-31 [facility] Comment on above: Performed By: #### L [id number] ####Cardboard Inserter: NATALIE GARCIA ([id number])[facility] [place] (SBHLAB)[address] Creatinine [Mass/Vol] 3.41 mg/dL High 0.57-1.11 [facility] Comment on above: Performed By: #### L [id number] ####Cardboard Inserter: NATALIE GARCIA ([id number])[facility]AMP[facility] [place] (SBHLAB)[address] GLOMERULAR FILTRATION RATE ML/MIN/1.73 SQ M.PREDICTED 13.3 mL/min/1.73m*2 Low >60.0 [facility] Comment on above: Result Comment: Calc ulation based on the Chronic Kidney Disease Epidemiology Collaboration (CKD-EPI) equation refit without adjustment for race Performed By: #### L [id number] ####Cardboard Inserter: NATALIE GARCIA ([id number])[facility] [place] (SBHLAB)[address] Glucose [Mass/Vol] 119 mg/dL High 82-115 [facility] Comment on above: Performed By: #### L [id number] ####Cardboard Inserter: NATALIE GARCIA ([id number])[facility] (SBHLAB)[address] Potassium [Moles/Vol] 4.4 mmol/L Normal 3.5-5.1 [facility] Comment on above: Result Comment: [facility] potassium values may be up to 0.5 mmol/L lower than serum values. Performed By: #### L [id number] ####Cardboard Inserter: NATALIE GARCIA ([id number])[facility] (SB[facility])[address] Protein [Mass/Vol] 6.2 g/dL Low 6.4-8.3 [facility] Comment on above: Performed By: #### L [id number] ####Cardboard Inserter: NATALIE GARCIA ([id number])[facility] (SBHLAB)[address] [place] [address] Sodium [Moles/Vol] 133 mmol/L Low 136-145 [facility] Comment on above: Performed By: #### L [id number] ####Cardboard Inserter: NATALIE GARCIA ([id number])[facility] (SBHLAB)[address] [place] [address] Urea nitrogen [Mass/Vol] 46 mg/dL High 9-23 [facility] Comment on above: Performed By: #### L [id number] ####Cardboard Inserter: NATALIE GARCIA ([id number])[facility] (SBHL[facility])[address] [place] [address] Comprehensive metabolic 1998 panelon 06-18-2025 Albumin [Mass/Vol] 2.1 g/dL Low 3.4 - 4.8 g/dL [facility] ALP [Catalytic activity/Vol] 122 U/L 40 - 150 U/L [facility] ALT [Catalytic activity/Vol] 13 U/L NINF - 30 U/L [facility] Anion gap [Moles/Vol] 11 mmol/L 3 - 13 mmol/L [facility] AST [Catalytic activity/Vol] 24 U/L NINF - 34 U/L [facility] Bilirubin [Mass/Vol] 0.6 mg/dL NINF - 1.2 mg/dL [facility] Calcium [Mass/Vol] 8.9 mg/dL 8.8 - 10. 0 mg/dL [facility] Chloride [Moles/Vol] 98 mmol/L 98 - 10 7 mmol/L [facility] CO2 [Moles/Vol] 24 mmol/L 23 - 31 mmol/L [facility] Creatinine [Mass/Vol] 3.41 mg/dL High 0.57 - 1.11 mg/dL [facility] GFR/1.73 sq M.predicted (S/P/Bld) [Vol rate/Area] 13.3 mL/min Low - PINF [facility] Glucose [Mass/Vol] 119 mg/dL High 82 - 115 mg/dL [facility] Interpretation and review of laboratory results Abnormal [facility] Potassium [Moles/Vol] 4.4 mmol/L 3.5 - 5.1 mmol/L [facility] Protein [Mass/Vol] 6.2 g/dL Low 6.4 - 8.3 g/dL [facility] Sodium [Moles/Vol] 133 mmol/L Low 136 - 145 mmol/L [facility] Urea nitrogen [Mass/Vol] 46 mg/dL High 9 - 23 mg/dL [facility] Laboratory - Chemistry and C hemistry - challengeon 06-18-2025 Glucose [Mass/Vol] 101 mg/dL High 70 - 100 mg/dL [facility] Glucose [Mass/Vol] 98 mg/dL 70 - 100 mg/dL [facility] Glucose [Mass/Vol] 123 mg/dL High 70 - 100 mg/dL [facility] No Panel Informationon 06-18 Interpretation and review of laboratory results Abnormal Formerly Named [facility] Interpretation and review of laboratory results Normal Formerly Named [facility] Interpretation and review of laboratory results Abnormal Formerly Named [facility] Nursing Noteon 06-18-2025 Nursing Note Normal [facility] Progress Noteon 06-18-2025 Progress Note Normal [facility] Progress Note Normal [facility] Progress Note Normal [facility] Progress Note Normal [facility] Progress Note Normal [facility] CBC W Auto Differential pane l (Bld)on 06-17-2025 Basophils (Bld) [#/Vol] 0.1 10*3/uL 0.0 - 0.2 10*3/uL [facility] Basophils/100 WBC (Bld) 0.8 % 0.0 - 2.0 % [facility] Eosinophils (Bld) [#/Vol] 0.2 10*3/uL 0.0 - 0.5 10*3/uL [facility] Eosinophils/100 WBC (Bld) 1.9 % 0.0 - 6.0 % [facility] Erythrocyte distribution width (RBC) [Ratio] 17.8 % High 11.5 - 15.0 % [facility] Hematocrit (Bld) [Volume fraction] 26.6 % Low 35.0 - 47.0 % [facility] Hem[facility] (Bld) [Mass/Vol] 8.4 g/dL Low 11.7 - 16.0 g/dL [facility] Immature granulocytes (Bld) [#/Vol] 0 10*3/uL NINF - 0.1 10*3/uL [facility] Immature granulocytes/100 WBC (Bld) 0.4 % 0.0 - 2.0 % [facility] Interpretation and review of laboratory results Abnormal [facility] Lymphocytes (Bld) [#/Vol] 1.2 10*3/uL 1.0 - 4.3 10*3/uL [facility] Lymphocytes/100 WBC (Bld) 15.9 % 15.0 - 45.0 % [facility] MCH (RBC) [Entitic mass] 26.7 pg 26.0 - 34.0 pg [facility] MCHC (RBC) [Mass/Vol] 31.6 % 30.5 - 36.0 % [facility] MCV (RBC) [Entitic vol] 84.4 fL 77.0 - 99.0 fL [facility] Monocytes (Bld) [#/Vol] 0.8 10*3/uL 0.0 - 0.9 10*3/uL [facility] Monocytes/100 WBC (Bld) 9.6 % 5.0 - 13.0 % [facility] Neutrophils (Bld) [#/Vol] 5.6 10*3/uL 1.8 - 7.5 10*3/uL [facility] Neutrophils/100 WBC (Bld) 71.4 % 38.0 - 82.0 % [facility] Nucleated RBC/100 WBC (Bld) [Ratio] 0 % [facility] Platelet mean volume (Bld) [Entitic vol] 9.6 fL 9.0 - 12.7 fL [facility] Platelets (Bld) [#/Vol] 230 10*3/uL 140 - 440 10*3/uL [facility] RBC (Bld) [#/Vol] 3.15 10*6/uL Low 3.80 - 5.2 0 10*6/uL [facility] WBC (Bld) [#/Vol] 7.8 10*3/uL 3.6 - 10.7 10*3/uL [facility] [facility] CBC WITH AUTO DIFFERENTIALon 06-17-2025 Basophils (Bld) [#/Vol] 0.1 10*3/uL Normal 0.0-0.2 [facility] Comment on above: Performed By: #### L [id number] ####Cardboard Inserter: NATALIE GARCIA ([id number])[facility] [place] (SBHLAB)[address] Basophils/100 WBC (Bld) 0.8 % Normal 0.0-2.0 [facility] Comment on above: Performed By: #### L [id number] ####Cardboard Inserter: NATALIE GARCIA ([id number])[facility] [place] (SBHLAB)[address] [place] [address] Eosinophils (Bld) [#/Vol] 0.2 10*3/uL Normal 0.0-0.5 [facility] Comment on above: Performed By: #### L [id number] ####Cardboard Inserter: NATALIE GARCIA ([id number])[facility] [place] (SBHLAB)[address] Eosinophils/100 WBC (Bld) 1.9 % Normal 0.0-6.0 [facility] Comment on above: Performed By: #### L [id number] ####Cardboard Inserter: NATALIE GARCIA ([id number])[facility] [place] (SBHLAB)[address] Erythrocyte distribution width (RBC) [Ratio] 17.8 % High 11.5-15.0 [facility] Comment on above: Performed By: #### L [id number] ####Cardboard Inserter: NATALIE GARCIA ([id number])[facility]AMPUSA [facility] (SB[facility])[address] Hematocrit (Bld) [Volume fraction] 26.6 % Low 35.0-47.0 [facility] Comment on above: Performed By: #### L [id number] ####Cardboard Inserter: NATALIE GARCIA ([id number])[facility]USA [place] ([facility] Hemoglobin (Bld) [Mass/Vol] 8.4 g/dL Low 11.7-16.0 [facility] Comment on above: Performed By: #### L [id number] ####Cardboard Inserter: NATALIE GARCIA ([id number])[facility] ([facility])[address] IMMATURE GRANS % 0.4 % Normal 0.0-2.0 [facility] Comment on above: Performed By: #### L [id number] ####Cardboard Inserter: NATALIE GARCIA ([id number])[facility] ([facility])[address] IMMATURE GRANS ABSOLUTE 0.0 10*3/uL Normal <0.1 [facility] Comment on above: Performed By: #### L [id number] ####Cardboard Inserter: NATALIE GARCIA ([id number])[facility] ([facility])[address] Lymphocytes (Bld) [#/Vol] 1.2 10*3/uL Normal 1.0-4.3 [facility] Comment on above: Performed By: #### L [id number] ####Cardboard Inserter: NATALIE GARCIA ([id number])[facility] ([facility])[address] Lymphocytes/100 WBC (Bld) 15.9 % Normal 15.0-45.0 [facility] Comment on above: Performed By: #### L [id number] ####Cardboard Inserter: NATALIE GARCIA ([id number])[facility]USA [place] (SBHLAB)[address] MCH (RBC) [Entitic mass] 26.7 pg Normal 26.0-34.0 [facility] Comment on above: Performed By: #### L [id number] ####Cardboard Inserter: NATALIE GARCIA ([id number])[facility]USA [facility] (SBHLAB)[address] MCHC 31.6 % Normal 30.5-36.0 [facility] Comment on above: Performed By: #### L [id number] ####Cardboard Inserter: NATALIE GARCIA ([id number])[facility]AMPUSA BARBREHOBOTH [facility] SERVICESN (SBHLAB)[address] MCV (RBC) [Entitic vol] 84.4 fL Normal 77.0-99.0 [facility] Comment on above: Performed By: #### L [id number] ####Cardboard Inserter: NATALIE GARCIA ([id number])[facility]AMPUSA BARBREHOB[facility] MCK[facility] SERVICESN (SBHLAB)[address] [place] [address] Monocytes (Bld) [#/Vol] 0.8 10*3/uL Normal 0.0-0.9 [facility] Comment on above: Performed By: #### L [id number] ####Cardboard Inserter: NATALIE GARCIA ([id number])[facility] [place] (SBHLAB)[address] Monocytes/100 WBC (Bld) 9.6 % Normal 5.0-13.0 [facility] Comment on above: Performed By: #### L [id number] ####Cardboard Inserter: NATALIE GARCIA ([id number])[facility]AMPUSA [facility]BREHOB[facility] SERVICESN (SBHLAB)[address] NEUTROPHILS ABSOLUTE 5.6 10*3/uL Normal 1.8-7.5 [facility] Comment on above: Performed By: #### L [id number] ####Cardboard Inserter: NATALIE GARCIA ([id number])[facility]USA [place] (SBHLAB)[address] Neutrophils/100 WBC (Bld) 71.4 % Normal 38.0-82.0 [facility] Comment on above: Performed By: #### L [id number] ####Cardboard Inserter: NATALIE GARCIA ([id number])[facility] [place] (SBHLAB)[address] NRBC 0.0 /100 WBCs Normal 0.0-2.0 [facility] Comment on above: Performed By: #### L [id number] ####Cardboard Inserter: NATALIE GARCIA ([id number])[facility]USA [place] (SBHLAB)[address] Platelet mean volume (Bld) [Entitic vol] 9.6 fL Normal 9.0-12.7 [facility] Comment on above: Performed By: #### L [id number] ####Cardboard Inserter: NATALIE GARCIA ([id number])[facility] [place] (SBHLAB)[address] Platelets (Bld) [#/Vol] 230 10*3/uL Normal 140-440 [facility] Comment on above: Performed By: #### L [id number] ####Cardboard Inserter: NATALIE GARCIA ([id number])[facility]AMPUSA [place] (SBHLAB)[address] [place] [address] [place] RBC (Bld) [#/Vol] 3.15 10*6/uL Low 3.80-5.20 [facility] Comment on above: Performed By: #### L [id number] ####Cardboard Inserter: NATALIE GARCIA ([id number])[facility] [place] (SBHLAB)[address] WBC (Bld) [#/Vol] 7.8 10*3/uL Normal 3.6-10.7 [facility] Comment on above: Performed By: #### L [id number] ####Cardboard Inserter: NATALIE GARCIA ([id number])[facility] CAMPUSA [place] (SBHLAB)[address] COMPREHENSIVE METABOLIC PANE Florentin 06-17-2025 Albumin [Mass/Vol] 2.3 g/dL Low 3.4-4.8 [facility] Comment on above: Performed By: #### L [id number] ####Cardboard Inserter: NATALIE GARCIA ([id number])[facility]USA [place] (SBHLAB)[address] ALP [Catalytic activity/Vol] 133 U/L Normal 40-150 [facility] Comment on above: Performed By: #### L [id number] ####Cardboard Inserter: NATALIE GARCIA ([id number])[facility]AMPUSA BARBREHOB[facility] SERVICESN (SBHLAB)[address] ALT [Catalytic activity/Vol] 14 U/L Normal <30 [facility] Comment on above: Performed By: #### L [id number] ####Cardboard Inserter: NATALIE GARCIA ([id number])[facility]USA [place] (SBHLAB)[address] Anion gap [Moles/Vol] 12 mmol/L Normal 3-13 [facility] Comment on above: Performed By: #### L [id number] ####Cardboard Inserter: NATALIE GARCIA ([id number])[facility]USA [place] (SBHLAB)[address] AST [Catalytic activity/Vol] 28 U/L Normal <34 [facility] Comment on above: Performed By: #### L [id number] ####Cardboard Inserter: NATALIE GARCIA ([id number])[facility] CAMPUSA [facility] (SBHLAB)[address] Bilirubin [Mass/Vol] 0.7 mg/dL Normal <1.2 [facility] Comment on above: Performed By: #### L [id number] ####Cardboard Inserter: NATALIE GARCIA ([id number])[facility]USA [place] (SBHLAB)[address] Calcium [Mass/Vol] 9.3 mg/dL Normal 8.8-10.0 [facility] Comment on above: Performed By: #### L [id number] ####Cardboard Inserter: NATALIE GARCIA ([id number])[facility] [place] (SBHLAB)[address] Chloride [Moles/Vol] 99 mmol/L Normal 98-107 [facility] Comment on above: Performed By: #### L [id number] ####Cardboard Inserter: NATALIE GARCIA ([id number])[facility] [place] (SBHLAB)[address] CO2 [Moles/Vol] 24 mmol/L Normal 23-31 [facility] Comment on above: Performed By: #### L [id number] ####Cardboard Inserter: NATALIE GARCIA ([id number])[facility] [place] (SBHLAB)[address] Creatinine [Mass/Vol] 2.72 mg/dL High 0.57-1.11 [facility] Comment on above: Performed By: #### L [id number] ####Cardboard Inserter: NATALIE GARCIA ([id number])[facility] [place] (SBHLAB)[address] GLOMERULAR FILTRATION RATE ML/MIN/1.73 SQ M.PREDICTED 17.5 mL/min/1.73m*2 Low >60.0 [facility] Comment on above: Result Comment: Calc ulation based on the Chronic Kidney Disease Epidemiology Collaboration (CKD-EPI) equation refit without adjustment for race Performed By: #### L [id number] ####Cardboard Inserter: NATALIE GARCIA ([id number])[facility]USA [place] (SBHLAB)[address] [place] [address] [place] Glucose [Mass/Vol] 62 mg/dL Low 82-115 [facility] Comment on above: Performed By: #### L [id number] ####Cardboard Inserter: NATALIE GARCIA ([id number])[facility] (SBHLAB)[address] Potassium [Moles/Vol] 4.1 mmol/L Normal 3.5-5.1 [facility] Comment on above: Result Comment: [facility] potassium values may be up to 0.5 mmol/L lower than serum values. Performed By: #### L [id number] ####Cardboard Inserter: NATALIE GARCIA ([id number])[facility] ([facility])[address] Protein [Mass/Vol] 6.8 g/dL Normal 6.4-8.3 [facility] Comment on above: Performed By: #### L [id number] ####Cardboard Inserter: NATALIE GARCIA ([id number])[facility] ([facility])[address] Sodium [Moles/Vol] 135 mmol/L Low 136-145 [facility] Comment on above: Performed By: #### L [id number] ####Cardboard Inserter: NATALIE GARCIA ([id number])[facility] ([facility])[address] Urea nitrogen [Mass/Vol] 33 mg/dL High 9-23 [facility] Comment on above: Performed By: #### L [id number] ####Cardboard Inserter: NATALIE GARCIA ([id number])[facility] (HLAB)[address] Comprehensive metabolic 1998 panelon 06-17-2025 Albumin [Mass/Vol] 2.3 g/dL Low 3.4 - 4.8 g/dL [facility] ALP [Catalytic activity/Vol] 133 U/L 40 - 150 U/L [facility] ALT [Catalytic activity/Vol] 14 U/L NINF - 30 U/L [facility] Anion gap [Moles/Vol] 12 mmol/L 3 - 13 mmol/L [facility] AST [Catalytic activity/Vol] 28 U/L NINF - 34 U/L [facility] Bilirubin [Mass/Vol] 0.7 mg/dL NINF - 1.2 mg/dL [facility] Calcium [Mass/Vol] 9.3 mg/dL 8.8 - 10. 0 mg/dL [facility] Chloride [Moles/Vol] 99 mmol/L 98 - 10 7 mmol/L [facility] CO2 [Moles/Vol] 24 mmol/L 23 - 31 mmol/L [facility] Creatinine [Mass/Vol] 2.72 mg/dL High 0.57 - 1.11 mg/dL [facility] GFR/1.73 sq M.predicted (S/P/Bld) [Vol rate/Area] 17.5 mL/min Low - PINF [facility] Glucose [Mass/Vol] 62 mg/dL Low 82 - 115 mg/dL [facility] Interpretation and review of laboratory results Abnormal [facility] Potassium [Moles/Vol] 4.1 mmol/L 3.5 - 5.1 mmol/L [facility] Protein [Mass/Vol] 6.8 g/dL 6.4 - 8.3 g/dL [facility] Sodium [Moles/Vol] 135 mmol/L Low 136 - 145 mmol/L [facility] Urea nitrogen [Mass/Vol] 33 mg/dL High 9 - 23 mg/dL [facility] Laboratory - Chemistry and C hemistry - challengeon 06-17-2025 Glucose [Mass/Vol] 135 mg/dL High 70 - 100 mg/dL [facility] Glucose [Mass/Vol] 118 mg/dL High 70 - 100 mg/dL [facility] Glucose [Mass/Vol] 106 mg/dL High 70 - 100 mg/dL [facility] Glucose [Mass/Vol] 74 mg/dL 70 - 100 mg/dL [facility] No Panel Informationon 06-17 Interpretation and review of laboratory results Abnormal [facility] Interpretation and review of laboratory results Abnormal [facility] Interpretation and review of laboratory results Abnormal [facility] Interpretation and review of laboratory results Normal [facility] Progress Noteon 06-17-2025 [facility] Progress [facility] CBC W Auto Differential pane l (Bld)on 06-16-2025 Basophils (Bld) [#/Vol] 0 10*3/uL 0.0 - 0.2 10*3/uL [facility] Basophils/100 WBC (Bld) 0.6 % 0.0 - 2.0 % [facility] Eosinophils (Bld) [#/Vol] 0.2 10*3/uL 0.0 - 0.5 10*3/uL [facility] Eosinophils/100 WBC (Bld) 2.7 % 0.0 - 6.0 % [facility] Erythrocyte distribution width (RBC) [Ratio] 18.2 % High 11.5 - 15.0 % [facility] Hematocrit (Bld) [Volume fraction] 24.7 % Low 35.0 - 47.0 % [facility] Hemoglobin (Bld) [Mass/Vol] 7.6 g/dL Low 11.7 - 16.0 g/dL [facility] Immature granulocytes (Bld) [#/Vol] 0 10*3/uL NINF - 0.1 10*3/uL [facility] Immature granulocytes/100 WBC (Bld) 0.5 % 0.0 - 2.0 % [facility] Interpretation and review of laboratory results Abnormal [facility] Lymphocytes (Bld) [#/Vol] 1 10*3/uL 1.0 - 4.3 10*3/uL [facility] Lymphocytes/100 WBC (Bld) 16.5 % 15.0 - 45.0 % [facility] MCH (RBC) [Entitic mass] 26.5 pg 26.0 - 34.0 pg [facility] MCHC (RBC) [Mass/Vol] 30.8 % 30.5 - 36.0 % [facility] MCV (RBC) [Entitic vol] 86.1 fL 77.0 - 99.0 fL [facility] Monocytes (Bld) [#/Vol] 0.5 10*3/uL 0.0 - 0.9 10*3/uL [facility] Monocytes/100 WBC (Bld) 7.9 % 5.0 - 13.0 % [facility] Neutrophils (Bld) [#/Vol] 4.5 10*3/uL 1.8 - 7.5 10*3/uL [facility] Neutrophils/100 WBC (Bld) 71.8 % 38.0 - 82.0 % [facility] Nucleated RBC/100 WBC (Bld) [Ratio] 0 % [facility] Platelet mean volume (Bld) [Entitic vol] 9.9 fL 9.0 - 12.7 fL [facility] Platelets (Bld) [#/Vol] 217 10*3/uL 140 - 440 10*3/uL [facility] RBC (Bld) [#/Vol] 2.87 10*6/uL Low 3.80 - 5.2 0 10*6/uL [facility] WBC (Bld) [#/Vol] 6.2 10*3/uL 3.6 - 10.7 10*3/uL [facility] CBC WITH AUTO DIFFERENTIALon 06-16-2025 Basophils (Bld) [#/Vol] 0.0 10*3/uL Normal 0.0-0.2 [facility] Comment on above: Performed By: #### L [id number] ####Cardboard Inserter: NATALIE GARCIA ([id number])[facility] (SBHLAB)[address] Basophils/100 WBC (Bld) 0.6 % Normal 0.0-2.0 [facility] Comment on above: Performed By: #### L [id number] ####Cardboard Inserter: NATALIE GARCIA ([id number])[facility] (SBHLAB)[address] [place] [address] Eosinophils (Bld) [#/Vol] 0.2 10*3/uL Normal 0.0-0.5 [facility] Comment on above: Performed By: #### L [id number] ####Cardboard Inserter: NATALIE GARCIA ([id number])[facility] (SBHLAB)[address] [place] [address] [place] Eosinophils/100 WBC (Bld) 2.7 % Normal 0.0-6.0 [facility] Comment on above: Performed By: #### L [id number] ####Cardboard Inserter: NATALIE GARCIA ([id number])[facility] [place] (SBHLAB)[address] Erythrocyte distribution width (RBC) [Ratio] 18.2 % High 11.5-15.0 [facility] Comment on above: Performed By: #### L [id number] ####Cardboard Inserter: NATALIE GARCIA ([id number])[facility] [place] (SBHLAB)[address] Hematocrit (Bld) [Volume fraction] 24.7 % Low 35.0-47.0 [facility] Comment on above: Performed By: #### L [id number] ####Cardboard Inserter: NATALIE GARCIA ([id number])[facility] [place] (SBHLAB)[address] [place] [address] Hemoglobin (Bld) [Mass/Vol] 7.6 g/dL Low 11.7-16.0 [facility] Comment on above: Performed By: #### L [id number] ####Cardboard Inserter: NATALIE GARCIA ([id number])[facility] [place] (SBHLAB)[address] [place] [address] IMMATURE GRANS % 0.5 % Normal 0.0-2.0 [facility] Comment on above: Performed By: #### L [id number] ####Cardboard Inserter: NATALIE GARCIA ([id number])[facility] CAMPUSA BARBREHOB[facility] SERVICESN (SBHLAB)[address] [place] [address] IMMATURE GRANS ABSOLUTE 0.0 10*3/uL Normal <0.1 [facility] Comment on above: Performed By: #### L [id number] ####Cardboard Inserter: NATALIE GARCIA ([id number])[facility] [place] (SBHLAB)[address] Lymphocytes (Bld) [#/Vol] 1.0 10*3/uL Normal 1.0-4.3 [facility] Comment on above: Performed By: #### L [id number] ####Cardboard Inserter: NATALIE GARCIA ([id number])[facility]BREHOB[facility] SERVICESN (SBHLAB)[address] Lymphocytes/100 WBC (Bld) 16.5 % Normal 15.0-45.0 [facility] Comment on above: Performed By: #### L [id number] ####Cardboard Inserter: NATALIE GARCIA ([id number])[facility]AMPUSA BARBREHOB[facility] SERVICESN (SBHLAB)[address] MCH (RBC) [Entitic mass] 26.5 pg Normal 26.0-34.0 [facility] Comment on above: Performed By: #### L [id number] ####Cardboard Inserter: NATALIE GARCIA ([id number])[facility]AMPUSA BARBREHOB[facility]N (SBHLAB)[address] MCHC 30.8 % Normal 30.5-36.0 [facility] Comment on above: Performed By: #### L [id number] ####Cardboard Inserter: NATALIE GARCIA ([id number])[facility]AMPUSA [facility]BREHOB[facility] SERVICESN (SBHLAB)[address] MCV (RBC) [Entitic vol] 86.1 fL Normal 77.0-99.0 [facility] Comment on above: Performed By: #### L [id number] ####Cardboard Inserter: NATALIE GARCIA ([id number])[facility] E[facility] CAMPUSJosé Miguel BARBREHOBOTH M[facility] SERVICESN (SBHLAB)[address] [place] [address] Monocytes (Bld) [#/Vol] 0.5 10*3/uL Normal 0.0-0.9 [facility] Comment on above: Performed By: #### L [id number] ####Cardboard Inserter: NATALIE GARCIA ([id number])[facility]AMPUSA [place] (SBHLAB)[address] [place] [address] [place] Monocytes/100 WBC (Bld) 7.9 % Normal 5.0-13.0 [facility] Comment on above: Performed By: #### L [id number] ####Cardboard Inserter: NATALIE GARCIA ([id number])[facility] [place] (SBHLAB)[address] NEUTROPHILS ABSOLUTE 4.5 10*3/uL Normal 1.8-7.5 [facility] Comment on above: Performed By: #### L [id number] ####Cardboard Inserter: NATALIE GARCIA ([id number])[facility] [place] (SBHLAB)[address] Neutrophils/100 WBC (Bld) 71.8 % Normal 38.0-82.0 [facility] Comment on above: Performed By: #### L [id number] ####Cardboard Inserter: NATALIE GARCIA ([id number])[facility]USA [place] (SBHLAB)[address] NRBC 0.0 /100 WBCs Normal 0.0-2.0 [facility] Comment on above: Performed By: #### L [id number] ####Cardboard Inserter: NATALIE GARCIA ([id number])[facility]AMPUSA [place] (SBHLAB)[address] Platelet mean volume (Bld) [Entitic vol] 9.9 fL Normal 9.0-12.7 [facility] Comment on above: Performed By: #### L [id number] ####Cardboard Inserter: NATALIE GARCIA ([id number])[facility]AMPUSA [place] (SBHLAB)[address] [place] [address] [place] Platelets (Bld) [#/Vol] 217 10*3/uL Normal 140-440 [facility] Comment on above: Performed By: #### L [id number] ####Cardboard Inserter: NATALIE GARCIA ([id number])[facility] [place] (SBHLAB)[address] [place] [address] [place] RBC (Bld) [#/Vol] 2.87 10*6/uL Low 3.80-5.20 [facility] Comment on above: Performed By: #### L [id number] ####Cardboard Inserter: NATALIE GARCIA ([id number])[facility]USA [place] (SBHLAB)[address] WBC (Bld) [#/Vol] 6.2 10*3/uL Normal 3.6-10.7 [facility] Comment on above: Performed By: #### L [id number] ####Cardboard Inserter: NATALIE GARCIA ([id number])[facility] CAMPUSA BARBMAGNUSN (SBHLAB)[address] COMPREHENSIVE METABOLIC PANE Florentin 06-16-2025 Albumin [Mass/Vol] 2.2 g/dL Low 3.4-4.8 [facility] Comment on above: Performed By: #### L [id number] ####Cardboard Inserter: NATALIE GARCIA ([id number])[facility] [place] (SBHLAB)[address] ALP [Catalytic activity/Vol] 127 U/L Normal 40-150 [facility] Comment on above: Performed By: #### L [id number] ####Cardboard Inserter: NATALIE GARCIA ([id number])[facility] [place] (SBHLAB)[address] ALT [Catalytic activity/Vol] 12 U/L Normal <30 [facility] Comment on above: Performed By: #### L [id number] ####Cardboard Inserter: NATALIE GARCIA ([id number])[facility] CAMPUSA BARBREHOBOTH [facility] SERVICESN (SBHLAB)[address] Anion gap [Moles/Vol] 10 mmol/L Normal 3-13 [facility] Comment on above: Performed By: #### L [id number] ####Cardboard Inserter: NATALIE GARCIA ([id number])[facility] [place] (SBHLAB)[address] AST [Catalytic activity/Vol] 26 U/L Normal <34 [facility] Comment on above: Performed By: #### L AB17 ####Cardboard Inserter: NATALIE GARCIA ([id number])[facility] [place] (SBHLAB)[address] Bilirubin [Mass/Vol] 0.5 mg/dL Normal <1.2 [facility] Comment on above: Performed By: #### L AB17 ####Cardboard Inserter: NATALIE GARCIA ([id number])[facility] [place] (SBHLAB)[address] Calcium [Mass/Vol] 8.6 mg/dL Low 8.8-10.0 [facility] Comment on above: Performed By: #### L AB17 ####Cardboard Inserter: NATALIE GARCIA ([id number])[facility] [place] (SBHLAB)[address] Chloride [Moles/Vol] 100 mmol/L Normal 98-107 [facility] Comment on above: Performed By: #### L AB17 ####Cardboard Inserter: NATALIE GARCIA ([id number])[facility] [place] (SBHLAB)[address] CO2 [Moles/Vol] 27 mmol/L Normal 23-31 [facility] Comment on above: Performed By: #### L AB17 ####Cardboard Inserter: NATALIE GARCIA ([id number])[facility] [place] (SBHLAB)[address] Creatinine [Mass/Vol] 1.89 mg/dL High 0.57-1.11 [facility] Comment on above: Performed By: #### L AB17 ####Cardboard Inserter: NATALIE GARCIA ([id number])[facility] [place] (SBHLAB)[address] [address]RE[address] GLOMERULAR FILTRATION RATE ML/MIN/1.73 SQ M.PREDICTED 27.1 mL/min/1.73m*2 Low >60.0 [facility] Comment on above: Result Comment: Calc ulation based on the Chronic Kidney Disease Epidemiology Collaboration (CKD-EPI) equation refit without adjustment for race Performed By: #### L [id number] ####Cardboard Inserter: NATALIE GARCIA ([id number])[facility] BAR[facility]N (SBHLAB)[address] Glucose [Mass/Vol] 131 mg/dL High 82-115 [facility] Comment on above: Performed By: #### L [id number] ####Cardboard Inserter: NATALIE GARCIA ([id number])[facility] CAMPUSJosé Miguel TORRES (SBHLAB)[address] Potassium [Moles/Vol] 4.4 mmol/L Normal 3.5-5.1 [facility] Comment on above: Result Comment: [facility] potassium values may be up to 0.5 mmol/L lower than serum values. Performed By: #### L [id number] ####Cardboard Inserter: NATALIE GARCIA ([id number])[facility] (SBHLAB)[address] Protein [Mass/Vol] 6.3 g/dL Low 6.4-8.3 [facility] Comment on above: Performed By: #### L [id number] ####Cardboard Inserter: NATALIE GARCIA ([id number])[facility] (SBHLAB)[address] Sodium [Moles/Vol] 137 mmol/L Normal 136-145 [facility] Comment on above: Performed By: #### L [id number] ####Cardboard Inserter: NATALIE GARCIA ([id number])[facility] (SBHLAB)[address] Urea nitrogen [Mass/Vol] 20 mg/dL Normal 9-23 [facility] Comment on above: Performed By: #### L [id number] ####Cardboard Inserter: NATALIE GARCIA ([id number])[facility] (SBHLAB)[address] Comprehensive metabolic 1998 panelon 06-16-2025 Albumin [Mass/Vol] 2.2 g/dL Low 3.4 - 4.8 g/dL [facility] ALP [Catalytic activity/Vol] 127 U/L 40 - 150 U/L [facility] ALT [Catalytic activity/Vol] 12 U/L NINF - 30 U/L [facility] Anion gap [Moles/Vol] 10 mmol/L 3 - 13 mmol/L [facility] AST [Catalytic activity/Vol] 26 U/L NINF - 34 U/L [facility] Bilirubin [Mass/Vol] 0.5 mg/dL NINF - 1.2 mg/dL [facility] Calcium [Mass/Vol] 8.6 mg/dL Low 8.8 - 10. 0 mg/dL [facility] Chloride [Moles/Vol] 100 mmol/L 98 - 10 7 mmol/L [facility] CO2 [Moles/Vol] 27 mmol/L 23 - 31 mmol/L [facility] Creatinine [Mass/Vol] 1.89 mg/dL High 0.57 - 1.11 mg/dL [facility] GFR/1.73 sq M.predicted (S/P/Bld) [Vol rate/Area] 27.1 mL/min Low - PINF [facility] Glucose [Mass/Vol] 131 mg/dL High 82 - 115 mg/dL [facility] Interpretation and review of laboratory results Abnormal [facility] Potassium [Moles/Vol] 4.4 mmol/L 3.5 - 5.1 mmol/L [facility] Protein [Mass/Vol] 6.3 g/dL Low 6.4 - 8.3 g/dL [facility] Sodium [Moles/Vol] 137 mmol/L 136 - 145 mmol/L [facility] Urea nitrogen [Mass/Vol] 20 mg/dL 9 - 23 mg/dL [facility] Laboratory - Chemistry and C hemistry - challengeon 06-16-2025 Glucose [Mass/Vol] 138 mg/dL High 70 - 100 mg/dL [facility] Glucose [Mass/Vol] 134 mg/dL High 70 - 100 mg/dL [facility] Glucose [Mass/Vol] 149 mg/dL High 70 - 100 mg/dL [facility] Glucose [Mass/Vol] 142 mg/dL High 70 - 100 mg/dL [facility] Glucose [Mass/Vol] 141 mg/dL High 70 - 100 mg/dL [facility] No Panel Informationon 06-16 Interpretation and review of laboratory results Abnormal [facility] Interpretation and review of laboratory results Abnormal [facility] Interpretation and review of laboratory results Abnormal [facility] Interpretation and review of laboratory results Abnormal [facility] Interpretation and review of laboratory results Abnormal [facility] Progress Noteon 06-16-2025 Progress Note Normal [facility] Progress Note Normal [facility] Progress Note Normal [facility] [id number] 06-15-2025 [id number] Normal [facility] [id number] Normal [facility] Bacteria identified Anaer cx Nom (Unsp spec)on 06-15-2025 Interpretation and review of laboratory results Normal [facility] CBC W Auto Differential pane l (Bld)on 06-15-2025 Basophils (Bld) [#/Vol] 0.1 10*3/uL 0.0 - 0.2 10*3/uL [facility] Basophils/100 WBC (Bld) 0.8 % 0.0 - 2.0 % [facility] Eosinophils (Bld) [#/Vol] 0.1 10*3/uL 0.0 - 0.5 10*3/uL [facility] Eosinophils/100 WBC (Bld) 2.1 % 0.0 - 6.0 % [facility] Erythrocyte distribution width (RBC) [Ratio] 17.7 % High 11.5 - 15.0 % [facility] Hematocrit (Bld) [Volume fraction] 25.7 % Low 35.0 - 47.0 % [facility] Hemoglobin (Bld) [Mass/Vol] 7.9 g/dL Low 11.7 - 16.0 g/dL [facility] Immature granulocytes (Bld) [#/Vol] 0 10*3/uL NINF - 0.1 10*3/uL [facility] Immature granulocytes/100 WBC (Bld) 0.3 % 0.0 - 2.0 % [facility] Interpretation and review of laboratory results Abnormal [facility] Lymphocytes (Bld) [#/Vol] 1.3 10*3/uL 1.0 - 4.3 10*3/uL [facility] Lymphocytes/100 WBC (Bld) 21.3 % 15.0 - 45.0 % [facility] MCH (RBC) [Entitic mass] 26.2 pg 26.0 - 34.0 pg [facility] MCHC (RBC) [Mass/Vol] 30.7 % 30.5 - 36.0 % [facility] MCV (RBC) [Entitic vol] 85.4 fL 77.0 - 99.0 fL [facility] Monocytes (Bld) [#/Vol] 0.5 10*3/uL 0.0 - 0.9 10*3/uL [facility] Monocytes/100 WBC (Bld) 8.6 % 5.0 - 13.0 % [facility] Neutrophils (Bld) [#/Vol] 4.1 10*3/uL 1.8 - 7.5 10*3/uL [facility] Neutrophils/100 WBC (Bld) 66.9 % 38.0 - 82.0 % [facility] Nucleated RBC/100 WBC (Bld) [Ratio] 0 % [facility] Platelet mean volume (Bld) [Entitic vol] 9.7 fL 9.0 - 12.7 fL [facility] Platelets (Bld) [#/Vol] 233 10*3/uL 140 - 440 10*3/uL [facility] RBC (Bld) [#/Vol] 3.01 10*6/uL Low 3.80 - 5.2 0 10*6/uL [facility] WBC (Bld) [#/Vol] 6.1 10*3/uL 3.6 - 10.7 10*3/uL [facility] CBC WITH AUTO DIFFERENTIALon 06-15-2025 Basophils (Bld) [#/Vol] 0.1 10*3/uL Normal 0.0-0.2 [facility] Comment on above: Performed By: #### L [id number] ####Cardboard Inserter: NATALIE GARCIA ([id number])[facility] (SBAB)[address] [place] [address] Basophils/100 WBC (Bld) 0.8 % Normal 0.0-2.0 [facility] Comment on above: Performed By: #### L [id number] ####Cardboard Inserter: NATALIE GARCIA ([id number])[facility] (SBHLAB)[address] Eosinophils (Bld) [#/Vol] 0.1 10*3/uL Normal 0.0-0.5 [facility] Comment on above: Performed By: #### L [id number] ####Cardboard Inserter: NATALIE DENISETRICIA ([id number])[facility] [place] [address] Eosinophils/100 WBC (Bld) 2.1 % Normal 0.0-6.0 [facility] Comment on above: Performed By: #### L [id number] ####Cardboard Inserter: NATALIE DENISETRICIA ([id number])[facility] ([facility])[address] Erythrocyte distribution width (RBC) [Ratio] 17.7 % High 11.5-15.0 [facility] Comment on above: Performed By: #### L [id number] ####Cardboard Inserter: NATLAIE JOSE ([id number])[facility] ([facility])[address] [place] [address] Hematocrit (Bld) [Volume fraction] 25.7 % Low 35.0-47.0 [facility] Comment on above: Performed By: #### L [id number] ####Cardboard Inserter: NATALIE DENISETRICIA ([id number])[facility] ([facility])[address] [place] [address] Hemoglobin (Bld) [Mass/Vol] 7.9 g/dL Low 11.7-16.0 [facility] Comment on above: Performed By: #### L [id number] ####Cardboard Inserter: NATALIE GARCIA ([id number])[facility] ([facility])[address] [place] [address] IMMATURE GRANS % 0.3 % Normal 0.0-2.0 [facility] Comment on above: Performed By: #### L [id number] ####Cardboard Inserter: NATALIE GARCIA ([id number])[facility] ([facility])[address] [place] [address] IMMATURE GRANS ABSOLUTE 0.0 10*3/uL Normal <0.1 [facility] Comment on above: Performed By: #### L [id number] ####Cardboard Inserter: NATALIEMELODIE GARCIA ([id number])[facility] CAMPUSJosé Miguel REHMANREHOBOTH MCKINLEY CHRISTIAN HEALTH CARE SERVICESN (SBHLAB)[address] Lymphocytes (Bld) [#/Vol] 1.3 10*3/uL Normal 1.0-4.3 [facility] Comment on above: Performed By: #### L [id number] ####Cardboard Inserter: NATALIE JOSE ([id number])[facility] (SBHLAB)[address] Lymphocytes/100 WBC (Bld) 21.3 % Normal 15.0-45.0 [facility] Comment on above: Performed By: #### L [id number] ####Cardboard Inserter: NATALIE GARCIA ([id number])[facility] CAMPUSJosé Miguel GARY (SBHLAB)[address] [place] [address] MCH (RBC) [Entitic mass] 26.2 pg Normal 26.0-34.0 [facility] Comment on above: Performed By: #### L [id number] ####Cardboard Inserter: NATALIE JOSE ([id number])[facility] (SBHLAB)[address] [place] [address] MCHC 30.7 % Normal 30.5-36.0 [facility] Comment on above: Performed By: #### L [id number] ####Cardboard Inserter: NATALIE DENISETRICIA ([id number])[facility] (SBHLAB)[address] [place] [address] MCV (RBC) [Entitic vol] 85.4 fL Normal 77.0-99.0 [facility] Comment on above: Performed By: #### L [id number] ####Cardboard Inserter: NATALIE SIMONErlindaTRICIA ([id number])[facility] (SBHLAB)[address] [place] [address] Monocytes (Bld) [#/Vol] 0.5 10*3/uL Normal 0.0-0.9 [facility] Comment on above: Performed By: #### L [id number] ####Cardboard Inserter: NATALIE GARCIA ([id number])[facility] (SBHLAB)[address] Monocytes/100 WBC (Bld) 8.6 % Normal 5.0-13.[address] [facility] Comment on above: Performed By: #### L [id number] ####Cardboard Inserter: NATALIE GARCIA ([id number])[facility]AMPUSA [place] (SBHLAB)[address] NEUTROPHILS ABSOLUTE 4.1 10*3/uL Normal 1.8-7.5 [facility] Comment on above: Performed By: #### L [id number] ####Cardboard Inserter: NATALIE CALVERTCER ([id number])[facility]AMPUSA [place] (SBHLAB)[address] Neutrophils/100 WBC (Bld) 66.9 % Normal 38.0-82.0 [facility] Comment on above: Performed By: #### L [id number] ####Cardboard Inserter: NATALIE GARCIA ([id number])[facility]AMP[facility] [place] (SBHLAB)[address] NRBC 0.0 /100 WBCs Normal 0.0-2.0 [facility] Comment on above: Performed By: #### L [id number] ####Cardboard Inserter: NATALIE GARCIA ([id number])[facility]AMP[facility] [place] (SBHLAB)[address] Platelet mean volume (Bld) [Entitic vol] 9.7 fL Normal 9.0-12.7 [facility] Comment on above: Performed By: #### L [id number] ####Cardboard Inserter: NATALIE GARCIA ([id number])[facility]AMP[facility] [place] (SBHLAB)[address] Platelets (Bld) [#/Vol] 233 10*3/uL Normal 140-440 [facility] Comment on above: Performed By: #### L [id number] ####Cardboard Inserter: NATALIE CALVERTCER ([id number])[facility]AMP[facility] [place] (SBHLAB)[address] RBC (Bld) [#/Vol] 3.01 10*6/uL Low 3.80-5.20 [facility] Comment on above: Performed By: #### L [id number] ####Cardboard Inserter: NATALIE CALVERTCER ([id number])[facility] CAMPUSA BARBREHOBOTH MCKINLEY CHRISTIAN HEALTH CARE SERVICESN (SBHLAB)[address] WBC (Bld) [#/Vol] 6.1 10*3/uL Normal 3.6-10.7 [facility] Comment on above: Performed By: #### L [id number] ####Cardboard Inserter: NATALIE JOSE ([id number])[facility] (SBHLAB)[address] [place] [address] COMPREHENSIVE METABOLIC PANE Florentin 06-15-2025 Albumin [Mass/Vol] 2.3 g/dL Low 3.4-4.8 [facility] Comment on above: Performed By: #### L [id number], [id number] ####Cardboard Inserter: NATALIE GARCIA ([id number])[facility] CAMPUSA BARBREHOBOTH MCKINLEY CHRIST[facility] HEALTH CARE SERVICESN (SBHLAB)[address] ALP [Catalytic activity/Vol] 129 U/L Normal 40-150 [facility] Comment on above: Performed By: #### L AB17, [id number] ####Cardboard Inserter: NATALIE GARCIA ([id number])[facility] BARBREHOBOTH MCKINLEY CHRI[facility]ALTH CARE SERVICESN (SBHLAB)[address] ALT [Catalytic activity/Vol] 10 U/L Normal <30 [facility] Comment on above: Performed By: #### L AB17, [id number] ####Cardboard Inserter: NATALIE GARCIA ([id number])[facility] (SBHLAB)[address] Anion gap [Moles/Vol] 12 mmol/L Normal 3-13 [facility] Comment on above: Performed By: #### L AB17, [id number] ####Cardboard Inserter: NATALIE JOSE ([id number])[facility] CAMPUSA LANN (SBHLAB)[address] AST [Catalytic activity/Vol] 26 U/L Normal <34 [facility] Comment on above: Performed By: #### L AB17, [id number] ####Cardboard Inserter: NATALIE CALVERTCER ([id number])[facility] CAMPUSA BARBREHOBOTH MCKIN[facility] CHRI[facility] CARE SERVICESN (SBHLAB)[address] Bilirubin [Mass/Vol] 0.7 mg/dL Normal <1.2 [facility] Comment on above: Performed By: #### L AB17, [id number] ####Cardboard Inserter: NATALIE DENISETRICIA ([id number])[facility] CAMPUSJosé Miguel REHMANREHOBOTH MCKINLEY CHRIST[facility] HEALTH CARE SERVICESN (SBHLAB)[address] Calcium [Mass/Vol] 8.8 mg/dL Normal 8.8-10.0 [facility] Comment on above: Performed By: #### L AB17, [id number] ####Cardboard Inserter: NATALIE SIMONDANIEL ([id number])[facility]AMPUSA [place] (SBHLAB)[address] Chloride [Moles/Vol] 97 mmol/L Low 98-107 [facility] Comment on above: Performed By: #### L AB17, [id number] ####Cardboard Inserter: NATALIE GARCIA ([id number])[facility]AMPUSA [place] (SBHLAB)[address] CO2 [Moles/Vol] 25 mmol/L Normal 23-31 [facility] Comment on above: Performed By: #### L AB17, [id number] ####Cardboard Inserter: NATALIE GARCIA ([id number])[facility] BARBREHOBOTH MCK[facility] SERVICESN (SBHLAB)[address] Creatinine [Mass/Vol] 2.80 mg/dL High 0.57-1.11 [facility] Comment on above: Performed By: #### L AB17, [id number] ####Cardboard Inserter: NATALIE GARCIA ([id number])[facility] CAMPUSA BARBREHOBOTH MCK[facility] SERVICESN (SBHLAB)[address] [place] [address] [place] GLOMERULAR FILTRATION RATE ML/MIN/1.73 SQ M.PREDICTED 16.9 mL/min/1.73m*2 Low >60.0 [facility] Comment on above: Result Comment: Calc ulation based on the Chronic Kidney Disease Epidemiology Collaboration (CKD-EPI) equation refit without adjustment for race Performed By: #### L AB17, [id number] ####Cardboard Inserter: NATALIE GARCIA ([id number])[facility] CAMPUSA BARBREHOBOTH MCK[facility] SERVICESN (SBHLAB)[address] Glucose [Mass/Vol] 80 mg/dL Low 82-115 [facility] Comment on above: Performed By: #### L AB17, [id number] ####Cardboard Inserter: NATALIE GARCIA ([id number])[facility] CAMPUSA [facility]BL[facility] (SBHLAB)[address] [place] [address] [place] Potassium [Moles/Vol] 3.4 mmol/L Low 3.5-5.1 [facility] Comment on above: Result Comment: [facility] potassium values may be up to 0.5 mmol/L lower than serum values. Performed By: #### L AB17, [id number] ####Cardboard Inserter: NATALIE GARCIA ([id number])[facility] CAMPUSA BARBREHOBOTH MCK[facility] SERVICESN (SBHLAB)[address] [place] [address] [place] Protein [Mass/Vol] 6.4 g/dL Normal 6.4-8.3 [facility] Comment on above: Performed By: #### L AB17, [id number] ####Cardboard Inserter: NATALIE GARCIA ([id number])[facility] CAMPUSA BARBREHOBOTH MCKIN[facility] SERVICESN (SBHLAB)[address] [place] [address] [place] Sodium [Moles/Vol] 134 mmol/L Low 136-145 [facility] Comment on above: Performed By: #### L AB17, [id number] ####Cardboard Inserter: NATALIE GARCIA ([id number])[facility] CAMPUSA BARBREHOBOTH MCKIN[facility]RI[facility] SERVICESN (SBHLAB)[address] Urea nitrogen [Mass/Vol] 31 mg/dL High 9-23 [facility] Comment on above: Performed By: #### L AB17, [id number] ####Cardboard Inserter: NATALIE GARCIA ([id number])[facility] MELISSA (SBHLAB)[address] Comprehensive metabolic 1998 panelon 06-15-2025 Albumin [Mass/Vol] 2.3 g/dL Low 3.4 - 4.8 g/dL [facility] ALP [Catalytic activity/Vol] 129 U/L 40 - 150 U/L [facility] ALT [Catalytic activity/Vol] 10 U/L NINF - 30 U/L [facility] Anion gap [Moles/Vol] 12 mmol/L 3 - 13 mmol/L [facility] AST [Catalytic activity/Vol] 26 U/L NINF - 34 U/L [facility] Bilirubin [Mass/Vol] 0.7 mg/dL NINF - 1.2 mg/dL [facility] Calcium [Mass/Vol] 8.8 mg/dL 8.8 - 10. 0 mg/dL [facility] Chloride [Moles/Vol] 97 mmol/L Low 98 - 10 7 mmol/L [facility] CO2 [Moles/Vol] 25 mmol/L 23 - 31 mmol/L [facility] Creatinine [Mass/Vol] 2.8 mg/dL High 0.57 - 1.11 mg/dL [facility] GFR/1.73 sq M.predicted (S/P/Bld) [Vol rate/Area] 16.9 mL/min Low - PINF [facility] Glucose [Mass/Vol] 80 mg/dL Low 82 - 115 mg/dL [facility] Interpretation and review of laboratory results Abnormal [facility] Potassium [Moles/Vol] 3.4 mmol/L Low 3.5 - 5.1 mmol/L [facility] Protein [Mass/Vol] 6.4 g/dL 6.4 - 8.3 g/dL [facility] Sodium [Moles/Vol] 134 mmol/L Low 136 - 145 mmol/L [facility] Urea nitrogen [Mass/Vol] 31 mg/dL High 9 - 23 mg/dL [facility] Laboratory - Chemistry and C hemistry - challengeon 06-15-2025 Glucose [Mass/Vol] 143 mg/dL High 70 - 100 mg/dL [facility] Glucose [Mass/Vol] 117 mg/dL High 70 - 100 mg/dL [facility] Glucose [Mass/Vol] 98 mg/dL 70 - 100 mg/dL [facility] Magnesium [Mass/Vol] 1.8 mg/dL 1.6 - 2 .6 mg/dL [facility] Glucose [Mass/Vol] 100 mg/dL 70 - 100 mg/dL [facility] Laboratory - Microbiology an d Antimicrobial susceptibilityon 06-15-2025 Bacteria identified Anaer cx Nom (Unsp spec) No growth at 5 days [facility] MAGNESIUMon 06-15-2025 Magnesium [Mass/Vol] 1.8 mg/dL Normal 1.6-2.6 [facility] Comment on above: Result Comment: DORIAN Knight COMMENTS:Higher values can be expected in females during menses. Performed By: #### L AB17, [id number] ####Cardboard Inserter: NATALIE GARCIA ([id number])[facility] ([facility])[address] [place] [address] Magnesium [Mass/Vol]on 06-15 Interpretation and review of laboratory results Normal [facility] N[facility] No Panel Informationon 06-15 Interpretation and review of laboratory results Abnormal [facility] Interpretation and review of laboratory results Abnormal Formerly N[facility] Interpretation and review of laboratory results Normal [facility] Interpretation and review of laboratory results Normal [facility] Nursing Noteon 06-15-2025 Nursing Note Normal [facility] Progress Noteon 06-15-2025 Progress Note [facility] Progress Note Normal [facility] Progress Note Normal [facility] Progress Note Normal [facility] [id number] 06-14-2025 [id number] Normal [facility] CBC W Auto Differential pane l (Bld)on 06-14-2025 Basophils (Bld) [#/Vol] 0 10*3/uL 0.0 - 0.2 10*3/uL [facility] Basophils/100 WBC (Bld) 0.7 % 0.0 - 2.0 % [facility] Eosinophils (Bld) [#/Vol] 0.2 10*3/uL 0.0 - 0.5 10*3/uL [facility] Eosinophils/100 WBC (Bld) 4 % 0.0 - 6.0 % [facility] Erythrocyte distribution width (RBC) [Ratio] 18 % High 11.5 - 15.0 % [facility] Hematocrit (Bld) [Volume fraction] 27.2 % Low 35.0 - 47.0 % [facility] Hemoglobin (Bld) [Mass/Vol] 8.5 g/dL Low 11.7 - 16.0 g/dL [facility] Immature granulocytes (Bld) [#/Vol] 0 10*3/uL NINF - 0.1 10*3/uL [facility] Immature granulocytes/100 WBC (Bld) 0.5 % 0.0 - 2.0 % [facility] Interpretation and review of laboratory results Abnormal [facility] Lymphocytes (Bld) [#/Vol] 0.9 10*3/uL Low 1.0 - 4.3 10*3/uL [facility] Lymphocytes/100 WBC (Bld) 16.8 % 15.0 - 45.0 % [facility] MCH (RBC) [Entitic mass] 26.5 pg 26.0 - 34.0 pg [facility] MCHC (RBC) [Mass/Vol] 31.3 % 30.5 - 36.0 % [facility] MCV (RBC) [Entitic vol] 84.7 fL 77.0 - 99.0 fL [facility] Monocytes (Bld) [#/Vol] 0.7 10*3/uL 0.0 - 0.9 10*3/uL [facility] Monocytes/100 WBC (Bld) 12.1 % 5.0 - 13.0 % [facility] Neutrophils (Bld) [#/Vol] 3.7 10*3/uL 1.8 - 7.5 10*3/uL [facility] Neutrophils/100 WBC (Bld) 65.9 % 38.0 - 82.0 % [facility] Nucleated RBC/100 WBC (Bld) [Ratio] 0 % [facility] Platelet mean volume (Bld) [Entitic vol] 9.8 fL 9.0 - 12.7 fL [facility] Platelets (Bld) [#/Vol] 222 10*3/uL 140 - 440 10*3/uL [facility] RBC (Bld) [#/Vol] 3.21 10*6/uL Low 3.80 - 5.2 0 10*6/uL [facility] WBC (Bld) [#/Vol] 5.6 10*3/uL 3.6 - 10.7 10*3/uL [facility] CBC WITH AUTO DIFFERENTIALon 06-14-2025 Basophils (Bld) [#/Vol] 0.0 10*3/uL Normal 0.0-0.2 [place] [facility] Comment on above: Performed By: #### L [id number] ####Cardboard Inserter: NATALIE GARCIA ([id number])[facility] CAMPUSA BARBREHOBOTH MCKINLEY CHRIST[facility] HEALTH CARE SERVICESN (SBHLAB)[address] [place] [address] Basophils/100 WBC (Bld) 0.7 % Normal 0.0-2.0 [facility] Comment on above: Performed By: #### L [id number] ####Cardboard Inserter: NATALIE GARCIA ([id number])[facility] CAMPUSA BARBREHOBOTH MCKINLEY CHRISTIAN HEALTH CARE SERVICESN (SBHLAB)[address] [place] [address] Eosinophils (Bld) [#/Vol] 0.2 10*3/uL Normal 0.0-0.5 [facility] Comment on above: Performed By: #### L [id number] ####Cardboard Inserter: NATALIE GARCIA ([id number])[facility] CAMPUSA [place] (SBHLAB)[address] [place] [address] Eosinophils/100 WBC (Bld) 4.0 % Normal 0.0-6.0 [facility] Comment on above: Performed By: #### L [id number] ####Cardboard Inserter: NATALIE GARCIA ([id number])[facility] (SBHLAB)[address] [place] [address] Erythrocyte distribution width (RBC) [Ratio] 18.0 % High 11.5-15.0 [facility] Comment on above: Performed By: #### L [id number] ####Cardboard Inserter: NATALIE GARCIA ([id number])[facility] CAMPUSJosé Miguel GARY (SBAB)[address] Hematocrit (Bld) [Volume fraction] 27.2 % Low 35.0-47.0 [facility] Comment on above: Performed By: #### L [id number] ####Cardboard Inserter: NATALIE DENISETRICIA ([id number])[facility] ([facility])[address] Hemoglobin (Bld) [Mass/Vol] 8.5 g/dL Low 11.7-16.0 [facility] Comment on above: Performed By: #### L [id number] ####Cardboard Inserter: NATALIE GARCIA ([id number])[facility] ([facility])[address] [place] [address] IMMATURE GRANS % 0.5 % Normal 0.0-2.0 [facility] Comment on above: Performed By: #### L [id number] ####Cardboard Inserter: NATALIE DENISETRICIA ([id number])[facility] ([facility])[address] IMMATURE GRANS ABSOLUTE 0.0 10*3/uL Normal <0.1 [facility] Comment on above: Performed By: #### L [id number] ####Cardboard Inserter: NATALIE GARCIA ([id number])[facility] ([facility])[address] Lymphocytes (Bld) [#/Vol] 0.9 10*3/uL Low 1.0-4.3 [facility] Comment on above: Performed By: #### L [id number] ####Cardboard Inserter: NATALIE GARCIA ([id number])[facility] ([facility])[address] Lymphocytes/100 WBC (Bld) 16.8 % Normal 15.0-45.0 [facility] Comment on above: Performed By: #### L [id number] ####Cardboard Inserter: NATALIE GARCIA ([id number])[facility] REHMANELIAS (SBHLAB)[address] MCH (RBC) [Entitic mass] 26.5 pg Normal 26.0-34.0 [facility] Comment on above: Performed By: #### L [id number] ####Cardboard Inserter: NATALIE GARCIA ([id number])[facility] REHMANELIAS (SBHLAB)[address] MCHC 31.3 % Normal 30.5-36.0 [facility] Comment on above: Performed By: #### L [id number] ####Cardboard Inserter: NATALIE GARCIA ([id number])[facility] REHMANELIAS (SBHLAB)[address] MCV (RBC) [Entitic vol] 84.7 fL Normal 77.0-99.0 [facility] Comment on above: Performed By: #### L [id number] ####Cardboard Inserter: NATALIE GARCIA ([id number])[facility] REHMANELIAS (SBHLAB)[address] Monocytes (Bld) [#/Vol] 0.7 10*3/uL Normal 0.0-0.9 [facility] Comment on above: Performed By: #### L [id number] ####Cardboard Inserter: NATALIE GARCIA ([id number])[facility] RE[facility]MANELIAS (SBHLAB)[address] Monocytes/100 WBC (Bld) 12.1 % Normal 5.0-13.0 [facility] Comment on above: Performed By: #### L [id number] ####Cardboard Inserter: NATALIE GARCIA ([id number])[facility] CAMPUSJosé Miguel [place] (SBHLAB)[address] NEUTROPHILS ABSOLUTE 3.7 10*3/uL Normal 1.8-7.5 [facility] Comment on above: Performed By: #### L [id number] ####Cardboard Inserter: NATALIE GARCIA ([id number])[facility] [place] (SBHLAB)[address] Neutrophils/100 WBC (Bld) 65.9 % Normal 38.0-82.0 [facility] Comment on above: Performed By: #### L [id number] ####Cardboard Inserter: NATALIE GARCIA ([id number])[facility] CAMPUSA [place] (SBHLAB)[address] NRBC 0.0 /100 WBCs Normal 0.0-2.0 [facility] Comment on above: Performed By: #### L [id number] ####Cardboard Inserter: NATALIE GARCIA ([id number])[facility] CAMPUSA [place] (SBHLAB)[address] Platelet mean volume (Bld) [Entitic vol] 9.8 fL Normal 9.0-12.7 [facility] Comment on above: Performed By: #### L [id number] ####Cardboard Inserter: NATALIE GARCIA ([id number])[facility] CAMPUSA [place] (SBHLAB)[address] [place] [address] [place] Platelets (Bld) [#/Vol] 222 10*3/uL Normal 140-440 [facility] Comment on above: Performed By: #### L [id number] ####Cardboard Inserter: NATALIE GARCIA ([id number])[facility]AMPUSA [place] (SBHLAB)[address] [place] [address] [place] RBC (Bld) [#/Vol] 3.21 10*6/uL Low 3.80-5.20 [facility] Comment on above: Performed By: #### L [id number] ####Cardboard Inserter: NATALIE GARCIA ([id number])[facility] CAMPUSA [place] (SBHLAB)[address] WBC (Bld) [#/Vol] 5.6 10*3/uL Normal 3.6-10.7 [facility] Comment on above: Performed By: #### L [id number] ####Cardboard Inserter: NATALIE GARCIA ([id number])[facility] CAMPUSA LANN (SBHLAB)[address] COMPREHENSIVE METABOLIC PANE Florentin 06-14-2025 Albumin [Mass/Vol] 2.3 g/dL Low 3.4-4.8 [facility] Comment on above: Performed By: #### L AB17, [id number] ####Cardboard Inserter: NATALIE GARCIA ([id number])[facility] CAMPUSA [place] (SBHLAB)[address] ALP [Catalytic activity/Vol] 135 U/L Normal 40-150 [facility] Comment on above: Performed By: #### L AB17, [id number] ####Cardboard Inserter: NATALIE GARCIA ([id number])[facility] CAMPUSA TAMARREHOBOTH MCK[facility] CH[facility]ST[facility] HEALTH CARE SERVICESN (SBHLAB)[address] ALT [Catalytic activity/Vol] 16 U/L Normal <30 [facility] Comment on above: Performed By: #### L AB17, [id number] ####Cardboard Inserter: NATALIE GARCIA ([id number])[facility] CAMPUSA TAMARREHOBOTH MCK[facility] C[facility] SERVICESN (SBHLAB)[address] Anion gap [Moles/Vol] 11 mmol/L Normal 3-13 [facility] Comment on above: Performed By: #### L AB17, [id number] ####Cardboard Inserter: NATALIE GARCIA ([id number])[facility] CAMPUSA TAMARREHOBOTH MCK[facility] SERVICESN (SBHLAB)[address] AST [Catalytic activity/Vol] 27 U/L Normal <34 [facility] Comment on above: Performed By: #### L AB17, [id number] ####Cardboard Inserter: NATALIE GARCIA ([id number])[facility] CAMPUSA BARBREHOB[facility] M[facility] SERVICESN (SBHLAB)[address] Bilirubin [Mass/Vol] 0.6 mg/dL Normal <1.2 [facility] Comment on above: Performed By: #### L AB17, [id number] ####Cardboard Inserter: NATALIE GARCIA ([id number])[facility] [place] (SBHLAB)[address] Calcium [Mass/Vol] 9.0 mg/dL Normal 8.8-10.0 [facility] Comment on above: Performed By: #### L AB17, [id number] ####Cardboard Inserter: NATALIE GARCIA ([id number])[facility] CAMPUSA [place] (SBHLAB)[address] [place] [address] [place] Chloride [Moles/Vol] 99 mmol/L Normal 98-107 [facility] Comment on above: Performed By: #### L AB17, [id number] ####Cardboard Inserter: NATALIE GARCIA ([id number])[facility]AMPUSA [place] (SBHLAB)[address] CO2 [Moles/Vol] 28 mmol/L Normal 23-31 [facility] Comment on above: Performed By: #### L AB17, [id number] ####Cardboard Inserter: NATALIE GARCIA ([id number])[facility]AMPUSA [place] (SBHLAB)[address] Creatinine [Mass/Vol] 1.93 mg/dL High 0.57-1.11 [facility] Comment on above: Performed By: #### L AB17, [id number] ####Cardboard Inserter: NATALIE GARCIA ([id number])[facility] CAMPUSA [place] (SBHLAB)[address] [place] [address] [place] GLOMERULAR FILTRATION RATE ML/MIN/1.73 SQ M.PREDICTED 26.4 mL/min/1.73m*2 Low >60.0 [facility] Comment on above: Result Comment: Calc ulation based on the Chronic Kidney Disease Epidemiology Collaboration (CKD-EPI) equation refit without adjustment for race Performed By: #### L AB17, [id number] ####Cardboard Inserter: NATALIE GARCIA ([id number])[facility]AMPUSA [place] (SBHLAB)[address] [place] [address] [place] Glucose [Mass/Vol] 100 mg/dL Normal 82-115 [facility] Comment on above: Performed By: #### L AB17, [id number] ####Cardboard Inserter: NATALIE GARCIA ([id number])[facility]AMPUSA [place] (SBHLAB)[address] Potassium [Moles/Vol] 3.5 mmol/L Normal 3.5-5.1 [facility] Comment on above: Result Comment: [facility] potassium values may be up to 0.5 mmol/L lower than serum values. Performed By: #### L AB17, [id number] ####Cardboard Inserter: NATALIE GARCIA ([id number])[facility]AMPUSA [place] (SBHLAB)[address] Protein [Mass/Vol] 6.7 g/dL Normal 6.4-8.3 [facility] Comment on above: Performed By: #### L AB17, [id number] ####Cardboard Inserter: NATALIE GARCIA ([id number])[facility]AMPUSA [place] (SBHLAB)[address] Sodium [Moles/Vol] 138 mmol/L Normal 136-145 [facility] Comment on above: Performed By: #### L AB17, [id number] ####Cardboard Inserter: NATALIE GARCIA ([id number])[facility]AMPUSA [place] (SBHLAB)[address] Urea nitrogen [Mass/Vol] 19 mg/dL Normal 9-23 [facility] Comment on above: Performed By: #### L AB17, [id number] ####Cardboard Inserter: NATALIE GARCIA ([id number])[facility]AMPUSA [place] (SBHLAB)[address] Comprehensive metabolic 1998 panelon 06-14-2025 Albumin [Mass/Vol] 2.3 g/dL Low 3.4 - 4.8 g/dL [facility] ALP [Catalytic activity/Vol] 135 U/L 40 - 150 U/L [facility] ALT [Catalytic activity/Vol] 16 U/L NINF - 30 U/L [facility] Anion gap [Moles/Vol] 11 mmol/L 3 - 13 mmol/L [facility] AST [Catalytic activity/Vol] 27 U/L NINF - 34 U/L [facility] Bilirubin [Mass/Vol] 0.6 mg/dL NINF - 1.2 mg/dL [facility] Calcium [Mass/Vol] 9 mg/dL 8.8 - 10. 0 mg/dL [facility] Chloride [Moles/Vol] 99 mmol/L 98 - 10 7 mmol/L [facility] CO2 [Moles/Vol] 28 mmol/L 23 - 31 mmol/L [facility] Creatinine [Mass/Vol] 1.93 mg/dL High 0.57 - 1.11 mg/dL [facility] GFR/1.73 sq M.predicted (S/P/Bld) [Vol rate/Area] 26.4 mL/min Low - PINF [facility] Glucose [Mass/Vol] 100 mg/dL 82 - 115 mg/dL [facility] Interpretation and review of laboratory results Abnormal [facility] Potassium [Moles/Vol] 3.5 mmol/L 3.5 - 5.1 mmol/L [facility] Protein [Mass/Vol] 6.7 g/dL 6.4 - 8.3 g/dL [facility] Sodium [Moles/Vol] 138 mmol/L 136 - 145 mmol/L [facility] Urea nitrogen [Mass/Vol] 19 mg/dL 9 - 23 mg/dL [facility] Consulton 06-14-2025 Consult Normal [facility] ECG 12-LEADon 06-14-2025 ECG 12-LEAD IMPRESSION: Sinus rhythm Atrial premature complex Left bundle branch block Compared to ECG 06/01/2025 11:15:32 No significant changes Electronically Signed On 06-14-2025 21:31:38 EDT by Grayson Haywood Normal [facility] Laboratory - Chemistry and C hemistry - challengeon 06-14-2025 Glucose [Mass/Vol] 106 mg/dL High 70 - 100 mg/dL [facility] TSH Qn 3.23 m[IU]/L [facility] Glucose [Mass/Vol] 100 mg/dL 70 - 100 mg/dL [facility] Glucose [Mass/Vol] 161 mg/dL High 70 - 100 mg/dL [facility] Glucose [Mass/Vol] 126 mg/dL High 70 - 100 mg/dL [facility] Magnesium [Mass/Vol] 1.9 mg/dL 1.6 - 2 .6 mg/dL [facility] Glucose [Mass/Vol] 125 mg/dL High 70 - 100 mg/dL [facility] MAGNESIUMon 06-14-2025 Magnesium [Mass/Vol] 1.9 mg/dL Normal 1.6-2.6 [facility] Comment on above: Result Comment: DORIAN R COMMENTS:Higher values can be expected in females during menses. Performed By: #### L AB17, [id number] ####Cardboard Inserter: NATALIE GARCIA ([id number])[facility] MELISSA (SBHLAB)[address] [place] [address] Magnesium [Mass/Vol]on 06-14 Interpretation and review of laboratory results Normal Formerly Named [facility] No Panel InformationOrdered By: Grayson Haywood on 06-14-2025 P [place] 0 degrees [facility] [employer] Work Phone: CA Interval 65 ms [facility] Work Phone: QRS [place] -11 degrees [facility] Work Phone: QRSD Interval 194 ms [facility] [employer] Work Phone: QT Interval 543 ms [facility] [employer] Work Phone: QTC Interval 552 ms [facility] Work Phone: T Wave [place] 188 degrees [facility] [employer] Phone: [facility] [employer] Work Phone: No Panel Informationon 06-14 CV EPIPHANY [facility] Interpretation and review of laboratory results Abnormal Formerly Named [facility] Interpretation and review of laboratory results Normal [facility] RADIOLOGY SYSTEM [facility] Radiology Study observation (narrative) [facility] Interpretation and review of laboratory results Abnormal Formerly Named [facility] Interpretation and review of laboratory results Abnormal [facility] Interpretation and review of laboratory results Abnormal [facility] Nursing Noteon 06-14-2025 Nursing Note Normal [facility] Progress Noteon 06-14-2025 Progress Note Normal [facility] Progress Note [facility] THYROID STIMULATING HORMONEo n 06-14-2025 THYROID STIMULATING HORMONE 3.23 uIU/mL Normal 0.35-4.94 [facility] Comment on above: Performed By: #### L [id number] ####Cardboard Inserter: NATALIE GARCIA ([id number])[facility] LANLaurel (SBHLAB)[address] [place] [address] TSH Qnon 06-14-2025 Interpretation and review of laboratory results Normal [facility] Vital signsOrdered By: Angelia Haywood on 06-14-2025 Heart rate 63 /min bpm [facility] Work Phone: [phone] 06-13-2025 [phone] Faxed OPAT to [facility] [employer] [facility] [place]. OPAT not received. Emailed OPAT to [email or web address] as requested. Normal [facility] [id number] Normal [facility] Bacteria identified Aer cx N om (Unsp spec)Ordered By: Rachel Schmitt on 06-13-2025 Gram Stain Result Many Polymorphonuclear leukocytes per low power field [facility] Gram Stain Result No organisms seen [facility] Interpretation and review of laboratory results Abnormal [facility] CBC W Auto Differential pane l (Bld)on 06-13-2025 Basophils (Bld) [#/Vol] 0.1 10*3/uL 0.0 - 0.2 10*3/uL [facility] Basophils/100 WBC (Bld) 0.8 % 0.0 - 2.0 % [facility] Eosinophils (Bld) [#/Vol] 0.2 10*3/uL 0.0 - 0.5 10*3/uL [facility] Eosinophils/100 WBC (Bld) 2.9 % 0.0 - 6.0 % [facility] Erythrocyte distribution width (RBC) [Ratio] 17.8 % High 11.5 - 15.0 % [facility] Hematocrit (Bld) [Volume fraction] 26.6 % Low 35.0 - 47.0 % [facility] Hemoglobin (Bld) [Mass/Vol] 8.4 g/dL Low 11.7 - 16.0 g/dL [facility] Immature granulocytes (Bld) [#/Vol] 0 10*3/uL NINF - 0.1 10*3/uL [facility] Immature granulocytes/100 WBC (Bld) 0.4 % 0.0 - 2.0 % [facility] Interpretation and review of laboratory results Abnormal [facility] Lymphocytes (Bld) [#/Vol] 1.1 10*3/uL 1.0 - 4.3 10*3/uL [facility] Lymphocytes/100 WBC (Bld) 15.5 % 15.0 - 45.0 % [facility] MCH (RBC) [Entitic mass] 26.3 pg 26.0 - 34.0 pg [facility] MCHC (RBC) [Mass/Vol] 31.6 % 30.5 - 36.0 % [facility] MCV (RBC) [Entitic vol] 83.4 fL 77.0 - 99.0 fL [facility] Monocytes (Bld) [#/Vol] 0.7 10*3/uL 0.0 - 0.9 10*3/uL [facility] Monocytes/100 WBC (Bld) 10.1 % 5.0 - 13.0 % [facility] Neutrophils (Bld) [#/Vol] 5 10*3/uL 1.8 - 7.5 10*3/uL [facility] Neutrophils/100 WBC (Bld) 70.3 % 38.0 - 82.0 % [facility] Nucleated RBC/100 WBC (Bld) [Ratio] 0 % [facility] Platelet mean volume (Bld) [Entitic vol] 9.5 fL 9.0 - 12.7 fL [facility] Platelets (Bld) [#/Vol] 235 10*3/uL 140 - 440 10*3/uL [facility] RBC (Bld) [#/Vol] 3.19 10*6/uL Low 3.80 - 5.2 0 10*6/uL [facility] WBC (Bld) [#/Vol] 7.2 10*3/uL 3.6 - 10.7 10*3/uL [facility] CBC WITH AUTO DIFFERENTIALon 06-13-2025 Basophils (Bld) [#/Vol] 0.1 10*3/uL Normal 0.0-0.2 [facility] Comment on above: Performed By: #### L [id number] ####Cardboard Inserter: NATALIE GARCIA ([id number])[facility]AMPUSA [place] (SBHLAB)[address] Basophils/100 WBC (Bld) 0.8 % Normal 0.0-2.0 [facility] Comment on above: Performed By: #### L [id number] ####Cardboard Inserter: NATALIE GARCIA ([id number])[facility] CAMPUSA [facility] (SBHLAB)[address] [place] [address] Eosinophils (Bld) [#/Vol] 0.2 10*3/uL Normal 0.0-0.5 [facility] Comment on above: Performed By: #### L [id number] ####Cardboard Inserter: NATALIE GARCIA ([id number])[facility]AMPUSA [place] (SBHLAB)[address] [place] [address] Eosinophils/100 WBC (Bld) 2.9 % Normal 0.0-6.0 [facility] Comment on above: Performed By: #### L [id number] ####Cardboard Inserter: NATALIE GARCIA ([id number])[facility]AMPUSA [place] (SBHLAB)[address] [place] [address] Erythrocyte distribution width (RBC) [Ratio] 17.8 % High 11.5-15.0 [facility] Comment on above: Performed By: #### L [id number] ####Cardboard Inserter: NATALIE GARCIA ([id number])[facility]AMPUSA [place] (SBHLAB)[address] [place] [address] Hematocrit (Bld) [Volume fraction] 26.6 % Low 35.0-47.0 [facility] Comment on above: Performed By: #### L [id number] ####Cardboard Inserter: NATALIE GARCIA ([id number])[facility] CAMPUSA BARBREHOBOTH MCKINLEY CHRISTIAN [facility]ALTH CARE SERVICESN (SBHLAB)[address] Hemoglobin (Bld) [Mass/Vol] 8.4 g/dL Low 11.7-16.0 [facility] Comment on above: Performed By: #### L [id number] ####Cardboard Inserter: NATALIE GARCIA ([id number])[facility] CAMPUSA BARBREHOBOTH MCKINLEY CHRI[facility] C[facility] SERVICESN (SBHLAB)[address] IMMATURE GRANS % 0.4 % Normal 0.0-2.0 [facility] Comment on above: Performed By: #### L [id number] ####Cardboard Inserter: NATALIE GARCIA ([id number])[facility] (SBHLAB)[address] IMMATURE GRANS ABSOLUTE 0.0 10*3/uL Normal <0.1 [facility] Comment on above: Performed By: #### L [id number] ####Cardboard Inserter: NATALIE GARCIA ([id number])[facility] (SBHLAB)[address] Lymphocytes (Bld) [#/Vol] 1.1 10*3/uL Normal 1.0-4.3 [facility] Comment on above: Performed By: #### L [id number] ####Cardboard Inserter: NATALIE GARCIA ([id number])[facility] (SBHLAB)[address] Lymphocytes/100 WBC (Bld) 15.5 % Normal 15.0-45.0 [facility] Comment on above: Performed By: #### L [id number] ####Cardboard Inserter: NATALIE GARCIA ([id number])[facility] (SBHLAB)[address] MCH (RBC) [Entitic mass] 26.3 pg Normal 26.0-34.0 [facility] Comment on above: Performed By: #### L [id number] ####Cardboard Inserter: NATALIE GARCIA ([id number])[facility] [place] (SBHLAB)[address] MCHC 31.6 % Normal 30.5-36.0 [facility] Comment on above: Performed By: #### L [id number] ####Cardboard Inserter: NATALIE GARCIA ([id number])[facility] [place] (SBHLAB)[address] MCV (RBC) [Entitic vol] 83.4 fL Normal 77.0-99.0 [facility] Comment on above: Performed By: #### L [id number] ####Cardboard Inserter: NATALIE GARCIA ([id number])[facility] [place] (SBHLAB)[address] Monocytes (Bld) [#/Vol] 0.7 10*3/uL Normal 0.0-0.9 [facility] Comment on above: Performed By: #### L [id number] ####Cardboard Inserter: NATALIE GARCIA ([id number])[facility] (SBHLAB)[address] Monocytes/100 WBC (Bld) 10.1 % Normal 5.0-13.0 [facility] Comment on above: Performed By: #### L [id number] ####Cardboard Inserter: NATALIE GARCIA ([id number])[facility] (SBHLAB)[address] NEUTROPHILS ABSOLUTE 5.0 10*3/uL Normal 1.8-7.5 [facility] Comment on above: Performed By: #### L [id number] ####Cardboard Inserter: NATALIE GARCIA ([id number])[facility] (SBHLAB)[address] Neutrophils/100 WBC (Bld) 70.3 % Normal 38.0-82.0 [facility] Comment on above: Performed By: #### L [id number] ####Cardboard Inserter: NATALIE GARCIA ([id number])[facility] (SBHLAB)[address] NRBC 0.0 /100 WBCs Normal 0.0-2.0 [facility] Comment on above: Performed By: #### L [id number] ####Cardboard Inserter: NATALIE GARCIA ([id number])[facility] CAMPUSJosé Miguel MONTENEGRON (SBHLAB)[address] Platelet mean volume (Bld) [Entitic vol] 9.5 fL Normal 9.0-12.7 [facility] Comment on above: Performed By: #### L [id number] ####Cardboard Inserter: NATALIE GARCIA ([id number])[facility] CAMPUSJosé Miguel REHMANREHOBOTH MCKINLEY CHRIST[facility] CARE SERVICESN (SBHLAB)[address] Platelets (Bld) [#/Vol] 235 10*3/uL Normal 140-440 [facility] Comment on above: Performed By: #### L [id number] ####Cardboard Inserter: NATALIE GARCIA ([id number])[facility] CAMPUSJosé Miguel REHMANREHOBOTH MCKINLEY CHRISTIAN HEALTH CARE SERVICESN (SBHLAB)[address] [place], [place] [address] RBC (Bld) [#/Vol] 3.19 10*6/uL Low 3.80-5.20 [facility] Comment on above: Performed By: #### L [id number] ####Cardboard Inserter: NATALIE GARCIA ([id number])[facility] CAMPUSJosé Miguel REHMANREHOBOTH MCKINLEY CHRISTIAN HEALTH CARE SERVICESN (SBHLAB)[address] [place] [address] WBC (Bld) [#/Vol] 7.2 10*3/uL Normal 3.6-10.7 [facility] Comment on above: Performed By: #### L [id number] ####Cardboard Inserter: NATALIE GARCIA ([id number])[facility] CAMPUSJosé Miguel REHMANREHOBOTH MCKINLEY CHRISTIAN HEALTH CARE SERVICESN (SBHLAB)[address] COMPREHENSIVE METABOLIC PANE Florentin 06-13-2025 Albumin [Mass/Vol] 2.3 g/dL Low 3.4-4.8 [facility] Comment on above: Performed By: #### L AB17, [id number] ####Cardboard Inserter: NATALIE GARCIA ([id number])[facility] (SBHLAB)[address] ALP [Catalytic activity/Vol] 127 U/L Normal 40-150 [facility] Comment on above: Performed By: #### L AB17, [id number] ####Cardboard Inserter: NATALIE GARCIA ([id number])[facility] CAMPUSA [place] (SBHLAB)[address] ALT [Catalytic activity/Vol] 12 U/L Normal <30 [facility] Comment on above: Performed By: #### L AB17, [id number] ####Cardboard Inserter: NATALIE GARCIA ([id number])[facility] CAMPUSA [place] (SBHLAB)[address] Anion gap [Moles/Vol] 12 mmol/L Normal 3-13 [facility] Comment on above: Performed By: #### L AB17, [id number] ####Cardboard Inserter: NATALIE GARCIA ([id number])[facility] CAMPUSA [place] (SBHLAB)[address] AST [Catalytic activity/Vol] 22 U/L Normal <34 [facility] Comment on above: Performed By: #### L AB17, [id number] ####Cardboard Inserter: NATALIE GARCIA ([id number])[facility]AMPUSA [place] (SBHLAB)[address] Bilirubin [Mass/Vol] 0.8 mg/dL Normal <1.2 [facility] Comment on above: Performed By: #### L AB17, [id number] ####Cardboard Inserter: NATALIE GARCIA ([id number])[facility] CAMPUSA [place] (SBHLAB)[address] [place] [address] [place] Calcium [Mass/Vol] 9.3 mg/dL Normal 8.8-10.0 [facility] Comment on above: Performed By: #### L AB17, [id number] ####Cardboard Inserter: NATALIE GARCIA ([id number])[facility] CAMPUSA [place] (SBHLAB)[address] [place] [address] [place] Chloride [Moles/Vol] 97 mmol/L Low 98-107 [facility] Comment on above: Performed By: #### L AB17, [id number] ####Cardboard Inserter: NATALIE GARCIA ([id number])[facility] CAMPUSJosé Miguel REHMANLITTLE COLORAD[facility]ICAL [facility] (SBHLAB)[address] CO2 [Moles/Vol] 25 mmol/L Normal 23-31 [facility] Comment on above: Performed By: #### L AB17, [id number] ####Cardboard Inserter: NATALIE GARCIA ([id number])[facility] ([facility])[address] Creatinine [Mass/Vol] 3.37 mg/dL High 0.57-1.11 [facility] Comment on above: Performed By: #### L AB17, [id number] ####Cardboard Inserter: NATALIE GARCIA ([id number])[facility] ([facility])[address] GLOMERULAR FILTRATION RATE ML/MIN/1.73 SQ M.PREDICTED 13.5 mL/min/1.73m*2 Low >60.0 [facility] Comment on above: Result Comment: Calc ulation based on the Chronic Kidney Disease Epidemiology Collaboration (CKD-EPI) equation refit without adjustment for race Performed By: #### L AB17, [id number] ####Cardboard Inserter: NATALIE GARCIA ([id number])[facility] (HLAB)[address] Glucose [Mass/Vol] 56 mg/dL Low 82-115 [facility] Comment on above: Performed By: #### L AB17, [id number] ####Cardboard Inserter: NATALIE GARCIA ([id number])[facility] ([facility])[address] Potassium [Moles/Vol] 3.5 mmol/L Normal 3.5-5.1 [facility] Comment on above: Result Comment: Plas ma potassium values may be up to 0.5 mmol/L lower than serum values. Performed By: #### L AB17, [id number] ####Cardboard Inserter: NATALIE GARCIA ([id number])[facility] CAMPUSA [facility] (SBHLAB)[address] Protein [Mass/Vol] 6.8 g/dL Normal 6.4-8.3 [facility] Comment on above: Performed By: #### L AB17, [id number] ####Cardboard Inserter: NATALIE GARCIA ([id number])[facility] CAMPUSA BARBREHOBOTH MCKINLEY CHRISTIAN HEALTH CARE SERVICESN (SBHLAB)[address] Sodium [Moles/Vol] 134 mmol/L Low 136-145 [facility] Comment on above: Performed By: #### L AB17, [id number] ####Cardboard Inserter: NATALIE GARCIA ([id number])[facility]ITAL[facility] (SBHLAB)[address] Urea nitrogen [Mass/Vol] 39 mg/dL High 9-23 [facility] Comment on above: Performed By: #### L AB17, [id number] ####Cardboard Inserter: NATALIE GARCIA ([id number])[facility]N (SBHLAB)[address] Comprehensive metabolic 1998 panelon 06-13-2025 Albumin [Mass/Vol] 2.3 g/dL Low 3.4 - 4.8 g/dL [facility] ALP [Catalytic activity/Vol] 127 U/L 40 - 150 U/L [facility] ALT [Catalytic activity/Vol] 12 U/L NINF - 30 U/L [facility] Anion gap [Moles/Vol] 12 mmol/L 3 - 13 mmol/L [facility] AST [Catalytic activity/Vol] 22 U/L NINF - 34 U/L [facility] Bilirubin [Mass/Vol] 0.8 mg/dL NINF - 1.2 mg/dL [facility] Calcium [Mass/Vol] 9.3 mg/dL 8.8 - 10. 0 mg/dL [facility] Chloride [Moles/Vol] 97 mmol/L Low 98 - 10 7 mmol/L [facility] CO2 [Moles/Vol] 25 mmol/L 23 - 31 mmol/L [facility] Creatinine [Mass/Vol] 3.37 mg/dL High 0.57 - 1.11 mg/dL [facility] GFR/1.73 sq M.predicted (S/P/Bld) [Vol rate/Area] 13.5 mL/min Low - PINF [facility] Glucose [Mass/Vol] 56 mg/dL Low 82 - 115 mg/dL [facility] Interpretation and review of laboratory results Abnormal [facility] Potassium [Moles/Vol] 3.5 mmol/L 3.5 - 5.1 mmol/L [facility] Protein [Mass/Vol] 6.8 g/dL 6.4 - 8.3 g/dL [facility] Sodium [Moles/Vol] 134 mmol/L Low 136 - 145 mmol/L [facility] Urea nitrogen [Mass/Vol] 39 mg/dL High 9 - 23 mg/dL [facility] Laboratory - Chemistry and C hemistry - challengeon 06-13-2025 Glucose [Mass/Vol] 108 mg/dL High 70 - 100 mg/dL [facility] Glucose [Mass/Vol] 108 mg/dL High 70 - 100 mg/dL [facility] Glucose [Mass/Vol] 107 mg/dL High 70 - 100 mg/dL [facility] Glucose [Mass/Vol] 122 mg/dL High 70 - 100 mg/dL [facility] Magnesium [Mass/Vol] 2 mg/dL 1.6 - 2 .6 mg/dL [facility] Glucose [Mass/Vol] 67 mg/dL Low 70 - 100 mg/dL [facility] Glucose [Mass/Vol] 123 mg/dL High 70 - 100 mg/dL [facility] Laboratory - Microbiology an d Antimicrobial susceptibilityOrdered By: Rachel Schmitt on 06-13-2025 Bacteria identified Aer cx Nom (Unsp spec) Few respiratory dave present. [facility] Bacteria identified Aer cx Nom (Unsp spec) Rare Pseudomonas aeruginosa Abnormal [facility] MAGNESIUMon 06-13-2025 Magnesium [Mass/Vol] 2.0 mg/dL Normal 1.6-2.6 [facility] Comment on above: Result Comment: ORDE R COMMENTS:Higher values can be expected in females during menses. Performed By: #### L AB17, [id number] ####Cardboard Inserter: NATALIE GARCIA ([id number])[facility] CAMPUSJosé Miguel TORRES (SBHLAB)[address] [place] [address] Magnesium [Mass/Vol]on 06-13 Interpretation and review of laboratory results Normal [facility] No Panel Informationon 06-13 Interpretation and review of laboratory results Abnormal [facility] Interpretation and review of laboratory results Abnormal [facility] Interpretation and review of laboratory results Abnormal [facility] Interpretation and review of laboratory results Abnormal [facility] Interpretation and review of laboratory results Abnormal [facility] Interpretation and review of laboratory results Abnormal [facility] Nursing Noteon 06-13-2025 Nursing Note Normal [facility] Nursing Note Normal [facility] Progress Noteon 06-13-2025 Progress [facility] Progress Note Normal [facility] Progress [facility] Progress Note [facility] Progress Note [facility] [id number] 06-12-2025 [id number] Sent updated notes t o return back to [facility] [place] via [employer] per TCC request. Await review and response regarding ability to accept. TCC notified. Normal [facility] [id number] Normal [facility] Bacteria identified Aer cx N om (Lower resp)Ordered By: Uma Mcgarry on 06-12-2025 Gram Stain Result Many Polymorphonuclear leukocytes per low power field Abnormal [facility] Gram Stain Result Rare Epithelial cell s per low power field Abnormal [facility] Gram Stain Result Negative Abnormal [facility] Gram Stain Result Positive Abnormal [facility] Interpretation and review of laboratory results Abnormal [facility] Bacteria identified Anaer cx Nom (Unsp spec)Ordered By: Brooklyn Ramos on 06-12-2025 Interpretation and review of laboratory results Normal [facility] Bacteria identified Cx Nom ( Bld)on 06-12-2025 Interpretation and review of laboratory results Normal [facility] CBC (HEMOGRAM)on 06-12-2025 Erythrocyte distribution width (RBC) [Ratio] 18.3 % High 11.5-15.0 [facility] Comment on above: Performed By: #### L [id number] ####Cardboard Inserter: NATALIE GARCIA ([id number])[facility] CAMPUSJosé Miguel TAMARELIAS (SBHLAB)[address] Hematocrit (Bld) [Volume fraction] 25.0 % Low 35.0-47.0 [facility] Comment on above: Performed By: #### L [id number] ####Cardboard Inserter: NATALIE GARCIA ([id number])[facility] (SBAB)[address] [place] [address] Hemoglobin (Bld) [Mass/Vol] 7.9 g/dL Low 11.7-16.0 [facility] Comment on above: Performed By: #### L [id number] ####Cardboard Inserter: NATALIE GARCIA ([id number])[facility] CAMPUSJosé Miguel [facility] HOSPITALELIAS (SBHLAB)[address] [place] [address] MCH (RBC) [Entitic mass] 26.5 pg Normal 26.0-34.0 [facility] Comment on above: Performed By: #### L [id number] ####Cardboard Inserter: NATALIE GARCIA ([id number])[facility] CAMPUSJosé Miguel [facility]PITALEL[facility] (SBHLAB)[address] [place] [address] MCHC 31.6 % Normal 30.5-36.0 [facility] Comment on above: Performed By: #### L [id number] ####Cardboard Inserter: NATALIE GARCIA ([id number])[facility] CAMPUSJosé Miguel [facility]ITAL[facility] (SBHLAB)[address] [place] [address] MCV (RBC) [Entitic vol] 83.9 fL Normal 77.0-99.[address] [facility] Comment on above: Performed By: #### L [id number] ####Cardboard Inserter: NATALIE GARCIA ([id number])[facility] (SBHLAB)[address] Platelet mean volume (Bld) [Entitic vol] 9.6 fL Normal 9.0-12.7 [facility] Comment on above: Performed By: #### L [id number] ####Cardboard Inserter: NATALIE GARCIA ([id number])[facility] MONTENEGR[facility] (SBHLAB)[address] Platelets (Bld) [#/Vol] 224 10*3/uL Normal 140-440 [facility] Comment on above: Performed By: #### L [id number] ####Cardboard Inserter: NATALIE GARCIA ([id number])[facility] CAMPUSJosé Miguel MONTENEGRON (SBHLAB)[address] RBC (Bld) [#/Vol] 2.98 10*6/uL Low 3.80-5.20 [facility] Comment on above: Performed By: #### L [id number] ####Cardboard Inserter: NATALIE GARCIA ([id number])[facility] CAMPUSJosé Miguel MONTENEGRON (SBHLAB)[address] WBC (Bld) [#/Vol] 6.9 10*3/uL Normal 3.6-10.7 [facility] Comment on above: Performed By: #### L [id number] ####Cardboard Inserter: NATALIE GARCIA ([id number])[facility] CAMPUSJosé Miguel MONTENEGRON (SBHLAB)[address] CBC panel Auto (Bld)on 06-12 Erythrocyte distribution width (RBC) [Ratio] 18.3 % High 11.5 - 15.0 % [facility] Hematocrit (Bld) [Volume fraction] 25 % Low 35.0 - 47.0 % [facility] Hemoglobin (Bld) [Mass/Vol] 7.9 g/dL Low 11.7 - 16.0 g/dL [facility] Interpretation and review of laboratory results Abnormal [facility] MCH (RBC) [Entitic mass] 26.5 pg 26.0 - 34.0 pg [facility] MCHC (RBC) [Mass/Vol] 31.6 % 30.5 - 36.0 % [facility] MCV (RBC) [Entitic vol] 83.9 fL 77.0 - 99.0 fL [facility] Platelet mean volume (Bld) [Entitic vol] 9.6 fL 9.0 - 12.7 fL [facility] Platelets (Bld) [#/Vol] 224 10*3/uL 140 - 440 10*3/uL [facility] RBC (Bld) [#/Vol] 2.98 10*6/uL Low 3.80 - 5.2 0 10*6/uL [facility] WBC (Bld) [#/Vol] 6.9 10*3/uL 3.6 - 10.7 10*3/uL [facility] COMPREHENSIVE METABOLIC PANE Florentin 06-12-2025 Albumin [Mass/Vol] 2.2 g/dL Low 3.4-4.8 [facility] Comment on above: Performed By: #### L AB17 ####Cardboard Inserter: NATALIE GARCIA ([id number])[facility] (SBHLAB)[address] ALP [Catalytic activity/Vol] 115 U/L Normal 40-150 [facility] Comment on above: Performed By: #### L AB17 ####Cardboard Inserter: NATALIE GARCIA ([id number])[facility] (SBHLAB)[address] ALT [Catalytic activity/Vol] 9 U/L Normal <30 [facility] Comment on above: Performed By: #### L AB17 ####Cardboard Inserter: NATALIE GARCIA ([id number])[facility] (SBHLAB)[address] Anion gap [Moles/Vol] 12 mmol/L Normal 3-13 [facility] Comment on above: Performed By: #### L AB17 ####Cardboard Inserter: NATALIE GARCIA ([id number])[facility] (SBHLAB)[address] AST [Catalytic activity/Vol] 21 U/L Normal <34 [facility] Comment on above: Performed By: #### L AB17 ####Cardboard Inserter: NATALIE GARCIA ([id number])[facility] CAMPUSJosé Miguel MONTENEGRON (SBHLAB)[address] Bilirubin [Mass/Vol] 0.7 mg/dL Normal <1.2 [facility] Comment on above: Performed By: #### L AB17 ####Cardboard Inserter: NATALIE GARCIA ([id number])[facility] CAMPUSA BARBMAGNUSN (SBHLAB)[address] Calcium [Mass/Vol] 8.7 mg/dL Low 8.8-10.0 [facility] Comment on above: Performed By: #### L AB17 ####Cardboard Inserter: NATALIE GARCIA ([id number])[facility] CAMPUSJosé Miguel MONTENEGRON (SBHLAB)[address] Chloride [Moles/Vol] 98 mmol/L Normal 98-107 [facility] Comment on above: Performed By: #### L AB17 ####Cardboard Inserter: NATALIE GARCIA ([id number])[facility] CAMPUSA [place] (SBHLAB)[address] CO2 [Moles/Vol] 27 mmol/L Normal 23-31 [facility] Comment on above: Performed By: #### L AB17 ####Cardboard Inserter: NATALIE GARCIA ([id number])[facility] CAMPUSJosé Miguel BARBMAGNUSN (SBHLAB)[address] Creatinine [Mass/Vol] 2.53 mg/dL High 0.57-1.11 [facility] Comment on above: Performed By: #### L AB17 ####Cardboard Inserter: NATALIE GARCIA ([id number])[facility] CAMPUSA [place] (SBHLAB)[address] GLOMERULAR FILTRATION RATE ML/MIN/1.73 SQ M.PREDICTED 19.1 mL/min/1.73m*2 Low >60.0 [facility] Comment on above: Result Comment: Calc ulation based on the Chronic Kidney Disease Epidemiology Collaboration (CKD-EPI) equation refit without adjustment for race Performed By: #### L AB17 ####Cardboard Inserter: NATALIE GARCIA ([id number])[facility] CAMPUSJosé Miguel GARY (SBHLAB)[address] Glucose [Mass/Vol] 165 mg/dL High 82-115 [facility] Comment on above: Performed By: #### L AB17 ####Cardboard Inserter: NATALIE GARCIA ([id number])[facility] CAMPUSJosé Miguel RE[facility]MANLITT[facility] (SBHLAB)[address] Potassium [Moles/Vol] 3.7 mmol/L Normal 3.5-5.1 [facility] Comment on above: Result Comment: [facility] potassium values may be up to 0.5 mmol/L lower than serum values. Performed By: #### L AB17 ####Cardboard Inserter: NATALIE GARCIA ([id number])[facility] CAMPUSA GARY (SBHLAB)[address] Protein [Mass/Vol] 6.4 g/dL Normal 6.4-8.3 [facility] Comment on above: Performed By: #### L AB17 ####Cardboard Inserter: NATALIE GARCIA ([id number])[facility] (SBHLAB)[address] Sodium [Moles/Vol] 137 mmol/L Normal 136-145 [facility] Comment on above: Performed By: #### L AB17 ####Cardboard Inserter: NATALIE GARCIA ([id number])[facility] (SBHLAB)[address] Urea nitrogen [Mass/Vol] 26 mg/dL High 9-23 [facility] Comment on above: Performed By: #### L AB17 ####Cardboard Inserter: NATALIE GARCIA ([id number])[facility] (SBHLAB)[address] Comprehensive metabolic 1998 panelOrdered By: Armando Viramontes on 06-12-2025 Albumin [Mass/Vol] 2.2 g/dL Low 3.4 - 4.8 g/dL [facility] ALP [Catalytic activity/Vol] 115 U/L 40 - 150 U/L [facility] ALT [Catalytic activity/Vol] 9 U/L NINF - 30 U/L [facility] Anion gap [Moles/Vol] 12 mmol/L 3 - 13 mmol/L [facility] AST [Catalytic activity/Vol] 21 U/L NINF - 34 U/L [facility] Bilirubin [Mass/Vol] 0.7 mg/dL NINF - 1.2 mg/dL [facility] Calcium [Mass/Vol] 8.7 mg/dL Low 8.8 - 10. 0 mg/dL [facility] Chloride [Moles/Vol] 98 mmol/L 98 - 10 7 mmol/L [facility] CO2 [Moles/Vol] 27 mmol/L 23 - 31 mmol/L [facility] Creatinine [Mass/Vol] 2.53 mg/dL High 0.57 - 1.11 mg/dL [facility] GFR/1.73 sq M.predicted (S/P/Bld) [Vol rate/Area] 19.1 mL/min Low - PINF [facility] Glucose [Mass/Vol] 165 mg/dL High 82 - 115 mg/dL [facility] Interpretation and review of laboratory results Abnormal [facility] Potassium [Moles/Vol] 3.7 mmol/L 3.5 - 5.1 mmol/L [facility] Protein [Mass/Vol] 6.4 g/dL 6.4 - 8.3 g/dL [facility] Sodium [Moles/Vol] 137 mmol/L 136 - 145 mmol/L [facility] Urea nitrogen [Mass/Vol] 26 mg/dL High 9 - 23 mg/dL [facility] Laboratory - Chemistry and C hemistry - challengeon 06-12-2025 Glucose [Mass/Vol] 157 mg/dL High 70 - 100 mg/dL [facility] Glucose [Mass/Vol] 147 mg/dL High 70 - 100 mg/dL [facility] Glucose [Mass/Vol] 165 mg/dL High 70 - 100 mg/dL [facility] Glucose [Mass/Vol] 171 mg/dL High 70 - 100 mg/dL [facility] Glucose [Mass/Vol] 166 mg/dL High 70 - 100 mg/dL [facility] Laboratory - Microbiology an d Antimicrobial susceptibilityOrdered By: Brooklyn Tobi Ramos on 06-12-2025 Bacteria identified Anaer cx Nom (Unsp spec) No growth at 5 days [facility] Laboratory - Microbiology an d Antimicrobial susceptibilityon 06-12-2025 Bacteria identified Cx Nom (Bld) No growth at 5 days [facility] Laboratory - Microbiology an d Antimicrobial susceptibilityOrdered By: Uma Mcgarry on 06-12-2025 Bacteria identified Aer cx Nom (Lower resp) Few respiratory dave present. [facility] Bacteria identified Aer cx Nom (Lower resp) Moderate Serratia marcescens Abnormal [facility] Bacteria identified Aer cx Nom (Lower resp) Moderate Stenotrophomonas maltophilia Abnormal [facility] Bacteria identified Aer cx Nom (Lower resp) Moderate Pseudomonas aeruginosa Abnormal [facility] No Panel Informationon 06-12 Interpretation and review of laboratory results Abnormal [facility] Interpretation and review of laboratory results Abnormal [facility] Interpretation and review of laboratory results Abnormal [facility] RADIOLOGY SYSTEM [facility] Radiology Study observation (narrative) [facility] Interpretation and review of laboratory results Abnormal [facility] Interpretation and review of laboratory results Abnormal [facility] No Panel InformationOrdered By: Yamil Newby on 06-12-2025 [facility] Work Phone: Nursing Noteon 06-12-2025 Nursing Note Normal [facility] Nursing Note Patient arrived from [address] on vent to trach, verbal consent was obtained. Patient was placed supine on exam table prepped and draped in sterile fashion. Telemetry monitors placed, vitals monitored. Normal [facility] Progress Noteon 06-12-2025 [facility] Progress Note Normal [facility] [id number] 06-11-2025 [id number] Normal [facility] Bacteria identified Aer cx N om (Unsp spec)on 06-11-2025 Gram Stain Result Few Polymorphonuclea r leukocytes per low power field [facility] Gram Stain Result No organisms seen [facility] CBC (HEMOGRAM)on 06-11-2025 Erythrocyte distribution width (RBC) [Ratio] 18.0 % High 11.5-15.0 [facility] Comment on above: Performed By: #### L [id number] ####Cardboard Inserter: NATALIE GARCIA ([id number])ELO[facility] REHMANELIAS (SBHLAB)[address] Hematocrit (Bld) [Volume fraction] 25.8 % Low 35.0-47.0 [facility] Comment on above: Performed By: #### L [id number] ####Cardboard Inserter: NATALIE GARCIA ([id number])[facility] CAMPUSJosé Miguel GARY (SBHLAB)[address] Hemoglobin (Bld) [Mass/Vol] 8.3 g/dL Low 11.7-16.0 [facility] Comment on above: Performed By: #### L [id number] ####Cardboard Inserter: NATALIE GARCIA ([id number])[facility] CAMPUSJosé Miguel [facility] (SBHLAB)[address] MCH (RBC) [Entitic mass] 26.3 pg Normal 26.0-34.0 [facility] Comment on above: Performed By: #### L [id number] ####Cardboard Inserter: NATALIE GARCIA ([id number])[facility] CAMPUSJosé Miguel REHMANREHOB[facility] MCK[facility] C[facility] SERVICESLa[facility] (SBHLAB)[address] MCHC 32.2 % Normal 30.5-36.0 [facility] Comment on above: Performed By: #### L [id number] ####Cardboard Inserter: NATALIE GARCIA ([id number])[facility] CAMPUSJosé Miguel [facility] (SBHLAB)[address] MCV (RBC) [Entitic vol] 81.6 fL Normal 77.0-99.[address] [facility] Comment on above: Performed By: #### L [id number] ####Cardboard Inserter: NATALIE GARCIA ([id number])[facility] CAMPUSJosé Miguel REHMANREH[facility] CARE SERVICESLa[place] (SBHLAB)[address] Platelet mean volume (Bld) [Entitic vol] 9.5 fL Normal 9.0-12.7 [facility] Comment on above: Performed By: #### L [id number] ####Cardboard Inserter: NATALIE GARCIA ([id number])[facility]RES (SBHLAB)[address] Platelets (Bld) [#/Vol] 235 10*3/uL Normal 140-440 [facility] Comment on above: Performed By: #### L [id number] ####Cardboard Inserter: NATALIE GARCIA ([id number])[facility] CAMPUSJosé Miguel [facility] (SBHLAB)[address] RBC (Bld) [#/Vol] 3.16 10*6/uL Low 3.80-5.20 [facility] Comment on above: Performed By: #### L [id number] ####Cardboard Inserter: NATALIE GARCIA ([id number])[facility] CAMPUSJosé Miguel [facility] (SBHLAB)[address] WBC (Bld) [#/Vol] 7.4 10*3/uL Normal 3.6-10.7 [facility] Comment on above: Performed By: #### L [id number] ####Cardboard Inserter: NATALIE DENISETRICIA ([id number])[facility] CAMPUSJosé Miguel [facility] (SBHLAB)[address] [place] [address] CBC panel Auto (Bld)on 06-11 Erythrocyte distribution width (RBC) [Ratio] 18 % High 11.5 - 15.0 % [facility] Hematocrit (Bld) [Volume fraction] 25.8 % Low 35.0 - 47.0 % [facility] Hemoglobin (Bld) [Mass/Vol] 8.3 g/dL Low 11.7 - 16.0 g/dL [facility] Interpretation and review of laboratory results Abnormal [facility] MCH (RBC) [Entitic mass] 26.3 pg 26.0 - 34.0 pg [facility] MCHC (RBC) [Mass/Vol] 32.2 % 30.5 - 36.0 % [facility] MCV (RBC) [Entitic vol] 81.6 fL 77.0 - 99.0 fL [facility] Platelet mean volume (Bld) [Entitic vol] 9.5 fL 9.0 - 12.7 fL [facility] Platelets (Bld) [#/Vol] 235 10*3/uL 140 - 440 10*3/uL [facility] RBC (Bld) [#/Vol] 3.16 10*6/uL Low 3.80 - 5.2 0 10*6/uL [facility] WBC (Bld) [#/Vol] 7.4 10*3/uL 3.6 - 10.7 10*3/uL [facility] COMPREHENSIVE METABOLIC PANE Florentin 06-11-2025 Albumin [Mass/Vol] 2.3 g/dL Low 3.4-4.8 [facility] Comment on above: Performed By: #### L [id number] ####Cardboard Inserter: NATALIE GARCIA ([id number])[facility] ([facility])[address] ALP [Catalytic activity/Vol] 117 U/L Normal 40-150 [facility] Comment on above: Performed By: #### L [id number] ####Cardboard Inserter: NATALIE GARCIA ([id number])[facility] ([facility])[address] ALT [Catalytic activity/Vol] 12 U/L Normal <30 [facility] Comment on above: Performed By: #### L AB17 ####Cardboard Inserter: NATALIE GARCIA ([id number])[facility] ([facility])[address] Anion gap [Moles/Vol] 11 mmol/L Normal 3-13 [facility] Comment on above: Performed By: #### L [id number] ####Cardboard Inserter: NATALIE GARCIA ([id number])[facility] ([facility])[address] AST [Catalytic activity/Vol] 26 U/L Normal <34 [facility] Comment on above: Performed By: #### L AB17 ####Cardboard Inserter: NATALIE GARCIA ([id number])[facility]BMAGNUSN (SBHLAB)[address] Bilirubin [Mass/Vol] 0.8 mg/dL Normal <1.2 [facility] Comment on above: Performed By: #### L AB17 ####Cardboard Inserter: NATALIE DENISETRICIA ([id number])[facility] CAMPUSA [place] (SBHLAB)[address] Calcium [Mass/Vol] 9.2 mg/dL Normal 8.8-10.0 [facility] Comment on above: Performed By: #### L AB17 ####Cardboard Inserter: NATALIE GARCIA ([id number])[facility] CAMPUSA [place] (SBHLAB)[address] Chloride [Moles/Vol] 99 mmol/L Normal 98-107 [facility] Comment on above: Performed By: #### L AB17 ####Cardboard Inserter: NATALIE GARCIA ([id number])[facility] CAMPUSA [place] (SBHLAB)[address] CO2 [Moles/Vol] 22 mmol/L Low 23-31 [facility] Comment on above: Performed By: #### L AB17 ####Cardboard Inserter: NATALIE GARCIA ([id number])[facility] CAMPUSA [place] (SBHLAB)[address] Creatinine [Mass/Vol] 4.10 mg/dL High 0.57-1.11 [facility] Comment on above: Performed By: #### L AB17 ####Cardboard Inserter: NATALIE GARCIA ([id number])[facility] CAMPUSA [place] (SBHLAB)[address] [place] [address] [place] GLOMERULAR FILTRATION RATE ML/MIN/1.73 SQ M.PREDICTED 10.7 mL/min/1.73m*2 Low >60.0 [facility] Comment on above: Result Comment: Calc ulation based on the Chronic Kidney Disease Epidemiology Collaboration (CKD-EPI) equation refit without adjustment for race Performed By: #### L AB17 ####Cardboard Inserter: NATALIE GARCIA ([id number])[facility] CAMPUSJosé Miguel [facility]La[facility] (SBHLAB)[address] Glucose [Mass/Vol] 149 mg/dL High 82-115 [facility] Comment on above: Performed By: #### L AB17 ####Cardboard Inserter: NATALIE GARCIA ([id number])[facility] CAMPUSJosé Miguel [facility] (SBHLAB)[address] Potassium [Moles/Vol] 3.9 mmol/L Normal 3.5-5.1 [facility] Comment on above: Result Comment: [facility] potassium values may be up to 0.5 mmol/L lower than serum values. Performed By: #### L AB17 ####Cardboard Inserter: NATALIE GARCIA ([id number])[facility] (SBHLAB)[address] Protein [Mass/Vol] 6.6 g/dL Normal 6.4-8.3 [facility] Comment on above: Performed By: #### L AB17 ####Cardboard Inserter: NATALIE GARCIA ([id number])[facility] (SBHLAB)[address] Sodium [Moles/Vol] 132 mmol/L Low 136-145 [facility] Comment on above: Performed By: #### L AB17 ####Cardboard Inserter: NATALIE GARCIA ([id number])[facility] (SBHLAB)[address] Urea nitrogen [Mass/Vol] 49 mg/dL High 9-23 [facility] Comment on above: Performed By: #### L AB17 ####Cardboard Inserter: NATALIE GARCIA ([id number])[facility] (SBHLAB)[address] Comprehensive metabolic 1998 panelon 06-11-2025 Albumin [Mass/Vol] 2.3 g/dL Low 3.4 - 4.8 g/dL [facility] ALP [Catalytic activity/Vol] 117 U/L 40 - 150 U/L [facility] ALT [Catalytic activity/Vol] 12 U/L NINF - 30 U/L [facility] Anion gap [Moles/Vol] 11 mmol/L 3 - 13 mmol/L [facility] AST [Catalytic activity/Vol] 26 U/L NINF - 34 U/L [facility] Bilirubin [Mass/Vol] 0.8 mg/dL NINF - 1.2 mg/dL [facility] Calcium [Mass/Vol] 9.2 mg/dL 8.8 - 10. 0 mg/dL [facility] Chloride [Moles/Vol] 99 mmol/L 98 - 10 7 mmol/L [facility] CO2 [Moles/Vol] 22 mmol/L Low 23 - 31 mmol/L [facility] Creatinine [Mass/Vol] 4.1 mg/dL High 0.57 - 1.11 mg/dL [facility] GFR/1.73 sq M.predicted (S/P/Bld) [Vol rate/Area] 10.7 mL/min Low - PINF [facility] Glucose [Mass/Vol] 149 mg/dL High 82 - 115 mg/dL [facility] Interpretation and review of laboratory results Abnormal [facility] Potassium [Moles/Vol] 3.9 mmol/L 3.5 - 5.1 mmol/L [facility] Protein [Mass/Vol] 6.6 g/dL 6.4 - 8.3 g/dL [facility] Sodium [Moles/Vol] 132 mmol/L Low 136 - 145 mmol/L [facility] Urea nitrogen [Mass/Vol] 49 mg/dL High 9 - 23 mg/dL [facility] Laboratory - Chemistry and C hemistry - challengeon 06-11-2025 Glucose [Mass/Vol] 192 mg/dL High 70 - 100 mg/dL [facility] Glucose [Mass/Vol] 199 mg/dL High 70 - 100 mg/dL [facility] Glucose [Mass/Vol] 139 mg/dL High 70 - 100 mg/dL [facility] Glucose [Mass/Vol] 163 mg/dL High 70 - 100 mg/dL [facility] Laboratory - Microbiology an d Antimicrobial susceptibilityon 06-11-2025 Bacteria identified Aer cx Nom (Unsp spec) No growth at 4 days [facility] No Panel Informationon 06-11 Interpretation and review of laboratory results Abnormal Formerly Named [facility] Interpretation and review of laboratory results Abnormal Former[facility] N[facility] Interpretation and review of laboratory results Abnormal Formerly Named [facility] Interpretation and review of laboratory results Abnormal [facility] N[facility] Nursing Noteon 06-11-2025 Nursing Note Normal [facility] Progress Noteon 06-11-2025 Progress Note [facility] Progress Note Normal [facility] Progress Note Normal [facility] Progress Note Normal [facility] BLOOD TYPE AND SCREEN GELon 06-10-2025 ABO GROUPING A Normal [facility] Comment on above: Performed By: #### L [id number] ####Cardboard Inserter: NATALIE GARCIA ([id number])[facility] BLOOD [facility] ([facility])[address] [place] [address] RH TYPE IN BLOOD Positive Normal [facility] Comment on above: Performed By: #### L [id number] ####Cardboard Inserter: NATALIE GARCIA ([id number])[facility] BLOOD [facility] ([facility])[address] [place] [address] Blood type and Crossmatch pa yordy (Bld)on 06-10-2025 ABO group Nom (Bld) A [facility] Blood group antibody screen GEL Ql Negative [facility] D Ag Ql (RBC) Positive [facility] CBC (HEMOGRAM)on 06-10-2025 Erythrocyte distribution width (RBC) [Ratio] 19.1 % High 11.5-15.0 [facility] Comment on above: Performed By: #### L [id number] ####Cardboard Inserter: NATALIE GARCIA ([id number])[facility] ([facility])[address] [place] [address] Hematocrit (Bld) [Volume fraction] 22.4 % Low 35.0-47.0 [facility] Comment on above: Performed By: #### L [id number] ####Cardboard Inserter: NATALIE GARCIA ([id number])[facility] CAMPUSJosé Miguel REHMANREHOB[facility]CK[facility] CARE SERVICESLa[place] (SBHLAB)[address] Hemoglobin (Bld) [Mass/Vol] 6.8 g/dL Critically low 11.7-16.0 [facility] Comment on above: Performed By: #### L [id number] ####Cardboard Inserter: NATALIE GARCIA ([id number])[facility] CAMPUSJosé Miguel REHMANREHOB[facility] MCK[facility]ALTH CARE SERVICESN (SBHLAB)[address] MCH (RBC) [Entitic mass] 25.7 pg Low 26.0-34.0 [facility] Comment on above: Performed By: #### L [id number] ####Cardboard Inserter: NATALIE GARCIA ([id number])[facility] (SBHLAB)[address] MCHC 30.4 % Low 30.5-36.0 [facility] Comment on above: Performed By: #### L [id number] ####Cardboard Inserter: NATALIE GARCIA ([id number])[facility] CAMPUSJosé Miguel [facility] (SBHLAB)[address] MCV (RBC) [Entitic vol] 84.5 fL Normal 77.0-99.0 [facility] Comment on above: Performed By: #### L [id number] ####Cardboard Inserter: NATALIE GARCIA ([id number])[facility] CAMPUSJosé Miguel [facility] (SBHLAB)[address] Platelet mean volume (Bld) [Entitic vol] 9.7 fL Normal 9.0-12.7 [facility] Comment on above: Performed By: #### L [id number] ####Cardboard Inserter: NATALIE GARCIA ([id number])[facility] CAMPUSJosé Miguel [place] (SBHLAB)[address] Platelets (Bld) [#/Vol] 228 10*3/uL Normal 140-440 [facility] Comment on above: Performed By: #### L [id number] ####Cardboard Inserter: NATALIE GARCIA ([id number])[facility] ([facility]AB)[address] RBC (Bld) [#/Vol] 2.65 10*6/uL Low 3.80-5.20 [facility] Comment on above: Performed By: #### L [id number] ####Cardboard Inserter: NATALIE GARCIA ([id number])[facility] (SBHLAB)[address] WBC (Bld) [#/Vol] 6.4 10*3/uL Normal 3.6-10.7 [facility] Comment on above: Performed By: #### L [id number] ####Cardboard Inserter: NATALIE GARCIA ([id number])[facility] (SBHLAB)[address] CBC panel Auto (Bld)on 06-10 Erythrocyte distribution width (RBC) [Ratio] 19.1 % High 11.5 - 15.0 % [facility] Hematocrit (Bld) [Volume fraction] 22.4 % Low 35.0 - 47.0 % [facility] Hemoglobin (Bld) [Mass/Vol] 6.8 g/dL Critically low 11.7 - 16.0 g/dL [facility] Interpretation and review of laboratory results Abnormal [facility] MCH (RBC) [Entitic mass] 25.7 pg Low 26.0 - 34.0 pg [facility] MCHC (RBC) [Mass/Vol] 30.4 % Low 30.5 - 36.0 % [facility] MCV (RBC) [Entitic vol] 84.5 fL 77.0 - 99.0 fL [facility] Platelet mean volume (Bld) [Entitic vol] 9.7 fL 9.0 - 12.7 fL [facility] Platelets (Bld) [#/Vol] 228 10*3/uL 140 - 440 10*3/uL [facility] RBC (Bld) [#/Vol] 2.65 10*6/uL Low 3.80 - 5.2 0 10*6/uL [facility] WBC (Bld) [#/Vol] 6.4 10*3/uL 3.6 - 10.7 10*3/uL [facility] COMPREHENSIVE METABOLIC PANE Florentin 06-10-2025 Albumin [Mass/Vol] 2.3 g/dL Low 3.4-4.8 [facility] Comment on above: Performed By: #### L AB17 ####Cardboard Inserter: NATALIE GARCIA ([id number])[facility]AMPUSA [place] (SBHLAB)[address] ALP [Catalytic activity/Vol] 112 U/L Normal 40-150 [facility] Comment on above: Performed By: #### L AB17 ####Cardboard Inserter: NATALIE GARCIA ([id number])[facility]AMPUSA [place] (SBHLAB)[address] ALT [Catalytic activity/Vol] 10 U/L Normal <30 [facility] Comment on above: Performed By: #### L AB17 ####Cardboard Inserter: NATALIE GARCIA ([id number])[facility]AMPUSA [place] (SBHLAB)[address] Anion gap [Moles/Vol] 10 mmol/L Normal 3-13 [facility] Comment on above: Performed By: #### L AB17 ####Cardboard Inserter: NATALIE GARCIA ([id number])[facility]AMPUSA [place] (SBHLAB)[address] AST [Catalytic activity/Vol] 25 U/L Normal <34 [facility] Comment on above: Performed By: #### L AB17 ####Cardboard Inserter: NATALIE GARCIA ([id number])[facility]AMPUSA [place] (SBHLAB)[address] Bilirubin [Mass/Vol] 0.5 mg/dL Normal <1.2 [facility] Comment on above: Performed By: #### L AB17 ####Cardboard Inserter: NATALIE GARCIA ([id number])[facility]AMPUSA [place] (SBHLAB)[address] Calcium [Mass/Vol] 9.0 mg/dL Normal 8.8-10.0 [facility] Comment on above: Performed By: #### L AB17 ####Cardboard Inserter: NATALIE GARCIA ([id number])[facility] (SBHLAB)[address] Chloride [Moles/Vol] 99 mmol/L Normal 98-107 [facility] Comment on above: Performed By: #### L AB17 ####Cardboard Inserter: NATALIE GARCIA ([id number])[facility]AMPUSA [place] (SBHLAB)[address] CO2 [Moles/Vol] 25 mmol/L Normal 23-31 [facility] Comment on above: Performed By: #### L AB17 ####Cardboard Inserter: NATALIE GARCIA ([id number])[facility] CAMPUSJosé Miguel [facility] (SBHLAB)[address] Creatinine [Mass/Vol] 3.44 mg/dL High 0.57-1.11 [facility] Comment on above: Performed By: #### L AB17 ####Cardboard Inserter: NATALIE GARCIA ([id number])[facility] CAMPUSA [place] (SBHLAB)[address] [place] [address] [place] GLOMERULAR FILTRATION RATE ML/MIN/1.73 SQ M.PREDICTED 13.2 mL/min/1.73m*2 Low >60.0 [facility] Comment on above: Result Comment: Calc ulation based on the Chronic Kidney Disease Epidemiology Collaboration (CKD-EPI) equation refit without adjustment for race Performed By: #### L AB17 ####Cardboard Inserter: NATALIE GARCIA ([id number])[facility]AMP[facility] [place] (SBHLAB)[address] [place] [address] [place] Glucose [Mass/Vol] 121 mg/dL High 82-115 [facility] Comment on above: Performed By: #### L AB17 ####Cardboard Inserter: NATALIE GARCIA ([id number])[facility] CAMPUSA [facility] (SBHLAB)[address] [place] [address] [place] Potassium [Moles/Vol] 3.9 mmol/L Normal 3.5-5.1 [facility] Comment on above: Result Comment: [facility] potassium values may be up to 0.5 mmol/L lower than serum values. Performed By: #### L AB17 ####Cardboard Inserter: NATALIE GARCIA ([id number])[facility]AMPUSA [place] (SBHLAB)[address] Protein [Mass/Vol] 6.4 g/dL Normal 6.4-8.3 [facility] Comment on above: Performed By: #### L AB17 ####Cardboard Inserter: NATALIE GARCIA ([id number])[facility]AMP[facility] [place] (SBHLAB)[address] Sodium [Moles/Vol] 134 mmol/L Low 136-145 [facility] Comment on above: Performed By: #### L AB17 ####Cardboard Inserter: NATALIE GARCIA ([id number])[facility] CAMPUSA [facility] (SB[facility]AB)[address] Urea nitrogen [Mass/Vol] 38 mg/dL High 9-23 [facility] Comment on above: Performed By: #### L AB17 ####Cardboard Inserter: NATALIE GARCIA ([id number])[facility] CAMPUSA [facility] (SB[facility]AB)[address] Comprehensive metabolic 1998 panelon 06-10-2025 Albumin [Mass/Vol] 2.3 g/dL Low 3.4 - 4.8 g/dL [facility] ALP [Catalytic activity/Vol] 112 U/L 40 - 150 U/L [facility] ALT [Catalytic activity/Vol] 10 U/L NINF - 30 U/L [facility] Anion gap [Moles/Vol] 10 mmol/L 3 - 13 mmol/L [facility] AST [Catalytic activity/Vol] 25 U/L NINF - 34 U/L [facility] Bilirubin [Mass/Vol] 0.5 mg/dL NINF - 1.2 mg/dL [facility] Calcium [Mass/Vol] 9 mg/dL 8.8 - 10. 0 mg/dL [facility] Chloride [Moles/Vol] 99 mmol/L 98 - 10 7 mmol/L [facility] CO2 [Moles/Vol] 25 mmol/L 23 - 31 mmol/L [facility] Creatinine [Mass/Vol] 3.44 mg/dL High 0.57 - 1.11 mg/dL [facility] GFR/1.73 sq M.predicted (S/P/Bld) [Vol rate/Area] 13.2 mL/min Low - PINF [facility] Glucose [Mass/Vol] 121 mg/dL High 82 - 115 mg/dL [facility] Interpretation and review of laboratory results Abnormal [facility] Potassium [Moles/Vol] 3.9 mmol/L 3.5 - 5.1 mmol/L [facility] Protein [Mass/Vol] 6.4 g/dL 6.4 - 8.3 g/dL [facility] Sodium [Moles/Vol] 134 mmol/L Low 136 - 145 mmol/L [facility] Urea nitrogen [Mass/Vol] 38 mg/dL High 9 - 23 mg/dL [facility] HEMOGLOBIN AND HEMATOCRIT, B LOODon 06-10-2025 Hematocrit (Bld) [Volume fraction] 25.8 % Low 35.0-47.0 [facility] Comment on above: Order Comment: Recom mend 1 hour post transfusion Performed By: #### L [id number] ####Cardboard Inserter: NATALIE GARCIA ([id number])[facility] ([facility])[address] [place] [address] Hemoglobin (Bld) [Mass/Vol] 8.1 g/dL Low 11.7-16.0 [facility] Comment on above: Order Comment: Recom mend 1 hour post transfusion Performed By: #### L [id number] ####Cardboard Inserter: NATALIE GARCIA ([id number])[facility] ([facility])[address] [place] [address] Hemoglobin (Bld) [Mass/Vol]O rdered By: Marguerite Maxwell on 06-10-2025 Hematocrit (Bld) [Volume fraction] 25.8 % Low 35.0 - 47.0 % [facility] Interpretation and review of laboratory results Abnormal [facility] IRON AND TIBCon 06-10-2025 IRON BINDING CAPACITY 188 ug/dL Low 250-450 [facility] Comment on above: Performed By: #### L [id number] ####Cardboard Inserter: NATALIE GARCIA ([id number])[facility] (SBHLAB)[address] IRON SATURATION 16.5 % Low 20.0-50.0 [facility] Comment on above: Performed By: #### L [id number] ####Cardboard Inserter: NATALIE GARCIA ([id number])[facility] (SBHLAB)[address] IRON, TOTAL 31 ug/dL Low 50-170 [facility] Comment on above: Performed By: #### L [id number] ####Cardboard Inserter: NATALIE DENISETRICIA ([id number])[facility] (SBHLAB)[address] Iron and Iron binding capaci ty panelon 06-10-2025 Interpretation and review of laboratory results Abnormal [facility] Iron [Mass/Vol] 31 ug/dL Low 50 - 170 ug/dL [facility] Iron binding capacity [Mass/Vol] 188 ug/dL Low 250 - 450 ug/dL [facility] Iron saturation [Mass fraction] 16.5 % Low 20.0 - 50.0 % [facility] Laboratory - Chemistry and C hemistry - challengeon 06-10-2025 Glucose [Mass/Vol] 164 mg/dL High 70 - 100 mg/dL [facility] Glucose [Mass/Vol] 157 mg/dL High 70 - 100 mg/dL [facility] Glucose [Mass/Vol] 163 mg/dL High 70 - 100 mg/dL [facility] Glucose [Mass/Vol] 117 mg/dL High 70 - 100 mg/dL [facility] Glucose [Mass/Vol] 103 mg/dL High 70 - 100 mg/dL [facility] Glucose [Mass/Vol] 57 mg/dL Low 70 - 100 mg/dL [facility] Laboratory - Hematology and Cell countsOrdered By: Marguerite Maxwell on 06-10-2025 Hemoglobin (Bld) [Mass/Vol] 8.1 g/dL Low 11.7 - 16.0 g/dL [facility] No Panel Informationon 06-10 Interpretation and review of laboratory results Abnormal [facility]ly Named [facility] Interpretation and review of laboratory results Abnormal [facility] Named [facility] Interpretation and review of laboratory results Abnormal Formerly Named [facility] Blood Expiration Date [id number] S [facility] Crossmatch interpretation COMP [facility] Dispense Status Transfused [facility] lt Product Blood Type 6200 [facility] PRODUCT CODE [id number] [facility] Unit ABO A [facility] Unit Number [id number] [facility] alth Unit RH Positive [facility] Unit Volume 300 mL [facility] Interpretation and review of laboratory results Abnormal Formerly Named [facility] Interpretation and review of laboratory results Abnormal Formerly Named [facility] Interpretation and review of laboratory results Abnormal Formerly Named [facility] Progress Noteon 06-10-2025 Progress Note [facility] Progress [facility] Progress Note Normal [facility] Progress Note Normal [facility] Bacteria identified Cx Nom ( Catheter tip)Ordered By: Alcides Sims on 06-09-2025 Interpretation and review of laboratory results Abnormal [facility] CBC (HEMOGRAM)on 06-09-2025 Erythrocyte distribution width (RBC) [Ratio] 19.1 % High 11.5-15.0 [facility] Comment on above: Performed By: #### L [id number] ####Cardboard Inserter: NATALIE GARCIA ([id number])[facility] ([facility])[address] [place] [address] Hematocrit (Bld) [Volume fraction] 22.0 % Low 35.0-47.0 [facility] Comment on above: Performed By: #### L AB294 ####Cardboard Inserter: NATALIE GARCIA ([id number])[facility] ([facility])[address] [place] [address] Hemoglobin (Bld) [Mass/Vol] 6.9 g/dL Critically low 11.7-16.0 [facility] Comment on above: Performed By: #### L AB294 ####Cardboard Inserter: NATALIE GARCIA ([id number])[facility] REHMANELIAS (SBHLAB)[address] MCH (RBC) [Entitic mass] 25.9 pg Low 26.0-34.0 [facility] Comment on above: Performed By: #### L AB294 ####Cardboard Inserter: NATALIE GARCIA ([id number])ELOINA REHMANELIAS (SBHLAB)[address] MCHC 31.4 % Normal 30.5-36.0 [facility] Comment on above: Performed By: #### L AB294 ####Cardboard Inserter: NATALIE GARCIA ([id number])[facility]AMPUSJos[facility] Miguel MONTENEGROLaurel (SBHLAB)[address] MCV (RBC) [Entitic vol] 82.7 fL Normal 77.0-99.0 S [facility] Comment on above: Performed By: #### L AB294 ####Cardboard Inserter: NATALIE GARCIA ([id number])[facility] CAMPUSJosé Miguel REHMANELIAS (SBHLAB)[address] Platelet mean volume (Bld) [Entitic vol] 9.8 fL Normal 9.0-12.7 [facility] Comment on above: Performed By: #### L AB294 ####Cardboard Inserter: NATALIE GARCIA ([id number])[facility]AMPUSJosé Miguel REHMANMAGNUSN (SBHLAB)[address] [place] [address] [place] Platelets (Bld) [#/Vol] 230 10*3/uL Normal 140-440 [facility] Comment on above: Performed By: #### L AB294 ####Cardboard Inserter: NATALIE GARCIA ([id number])[facility]AMPUSJosé Miguel BARBMAGNUSN (SBHLAB)[address] RBC (Bld) [#/Vol] 2.66 10*6/uL Low 3.80-5.20 [facility] Comment on above: Performed By: #### L AB294 ####Cardboard Inserter: NATALIE GARCIA ([id number])[facility] TAM[facility]IAS (SBHLAB)[address] WBC (Bld) [#/Vol] 6.7 10*3/uL Normal 3.6-10.7 [facility] Comment on above: Performed By: #### L AB294 ####Cardboard Inserter: NATALIE GARCIA ([id number])[facility]ITALLa[facility] (SBHLAB)[address] CBC panel Auto (Bld)on 06-09 Erythrocyte distribution width (RBC) [Ratio] 19.1 % High 11.5 - 15.0 % [facility] Hematocrit (Bld) [Volume fraction] 22 % Low 35.0 - 47.0 % [facility] Hemoglobin (Bld) [Mass/Vol] 6.9 g/dL Critically low 11.7 - 16.0 g/dL [facility] Interpretation and review of laboratory results Abnormal [facility] MCH (RBC) [Entitic mass] 25.9 pg Low 26.0 - 34.0 pg [facility] MCHC (RBC) [Mass/Vol] 31.4 % 30.5 - 36.0 % [facility] MCV (RBC) [Entitic vol] 82.7 fL 77.0 - 99.0 fL [facility] Platelet mean volume (Bld) [Entitic vol] 9.8 fL 9.0 - 12.7 fL [facility] Platelets (Bld) [#/Vol] 230 10*3/uL 140 - 440 10*3/uL [facility] RBC (Bld) [#/Vol] 2.66 10*6/uL Low 3.80 - 5.2 0 10*6/uL [facility] WBC (Bld) [#/Vol] 6.7 10*3/uL 3.6 - 10.7 10*3/uL [facility] COMPREHENSIVE METABOLIC PANE Florentin 06-09-2025 Albumin [Mass/Vol] 2.4 g/dL Low 3.4-4.8 [facility] Comment on above: Performed By: #### L AB17 ####Cardboard Inserter: NATALIE GARCIA ([id number])[facility] (SBHLAB)[address] [place] [address] [place] ALP [Catalytic activity/Vol] 117 U/L Normal 40-150 [facility] Comment on above: Performed By: #### L AB17 ####Cardboard Inserter: NATALIE GARCIA ([id number])[facility] CAMPUSA [place] (SBHLAB)[address] [place] [address] [place] ALT [Catalytic activity/Vol] 9 U/L Normal <30 [facility] Comment on above: Performed By: #### L AB17 ####Cardboard Inserter: NATALIE GARCIA ([id number])[facility] CAMPUSA [place] (SBHLAB)[address] Anion gap [Moles/Vol] 11 mmol/L Normal 3-13 [facility] Comment on above: Performed By: #### L AB17 ####Cardboard Inserter: NATALIE GARCIA ([id number])[facility] CAMPUSA [place] (SBHLAB)[address] AST [Catalytic activity/Vol] 18 U/L Normal <34 [facility] Comment on above: Performed By: #### L AB17 ####Cardboard Inserter: NATALIE GARCIA ([id number])[facility] CAMPUSA [place] (SBHLAB)[address] Bilirubin [Mass/Vol] 0.5 mg/dL Normal <1.2 [facility] Comment on above: Performed By: #### L AB17 ####Cardboard Inserter: NATALIE GARCIA ([id number])[facility] CAMPUSA [place] (SBHLAB)[address] [place] [address] [place] Calcium [Mass/Vol] 9.1 mg/dL Normal 8.8-10.0 [facility] Comment on above: Performed By: #### L AB17 ####Cardboard Inserter: NATALIE GARCIA ([id number])[facility] CAMPUSA BARBREHOBOTH MCKINLEY CHRISTIAN HEALTH CARE SERVICESN (SBHLAB)[address] [place] [address] [place] Chloride [Moles/Vol] 99 mmol/L Normal 98-107 [facility] Comment on above: Performed By: #### L AB17 ####Cardboard Inserter: NATALIE GARCIA ([id number])[facility] CAMPUSJosé Miguel [facility] (SBHLAB)[address] CO2 [Moles/Vol] 26 mmol/L Normal 23-31 [facility] Comment on above: Performed By: #### L AB17 ####Cardboard Inserter: NATALIE GARCIA ([id number])[facility] (SBHLAB)[address] Creatinine [Mass/Vol] 2.37 mg/dL High 0.57-1.11 [facility] Comment on above: Performed By: #### L AB17 ####Cardboard Inserter: NATALIE GARCIA ([id number])[facility] ([facility])[address] GLOMERULAR FILTRATION RATE ML/MIN/1.73 SQ M.PREDICTED 20.6 mL/min/1.73m*2 Low >60.0 [facility] Comment on above: Result Comment: Calc ulation based on the Chronic Kidney Disease Epidemiology Collaboration (CKD-EPI) equation refit without adjustment for race Performed By: #### L AB17 ####Cardboard Inserter: NATALIE GARCIA ([id number])[facility])[address] Glucose [Mass/Vol] 101 mg/dL Normal 82-115 [facility] Comment on above: Performed By: #### L AB17 ####Cardboard Inserter: NATALIE GARCIA ([id number])[facility])[address] [place] [address] [place] Potassium [Moles/Vol] 3.8 mmol/L Normal 3.5-5.1 [facility] Comment on above: Result Comment: [facility] potassium values may be up to 0.5 mmol/L lower than serum values. Performed By: #### L AB17 ####Cardboard Inserter: NATALIE GARCIA ([id number])[facility] (SBHLAB)[address] Protein [Mass/Vol] 6.6 g/dL Normal 6.4-8.3 [facility] Comment on above: Performed By: #### L AB17 ####Cardboard Inserter: NATALIE GARCIA ([id number])[facility]AMPUSJosé Miguel [facility]ORRES (SBHLAB)[address] Sodium [Moles/Vol] 136 mmol/L Normal 136-145 [facility] Comment on above: Performed By: #### L AB17 ####Cardboard Inserter: NATALIE CALVERTCER ([id number])[facility]AMPUSJosé Miguel [facility] (SBHLAB)[address] Urea nitrogen [Mass/Vol] 26 mg/dL High 9-23 [facility] Comment on above: Performed By: #### L AB17 ####Cardboard Inserter: NATALIE GARCIA ([id number])[facility]AMPUSJosé Miguel [place] (SBHLAB)[address] CULTURE ANAEROBICon 06-09-20 25 CULTURE ANAEROBIC Normal [facility] Comment on above: Performed By: #### L AB233 ####Cardboard Inserter: VASHTI BAILEY ([id number])[facility] ([facility])[address] [place] [address] CULTURE, AEROBIC BACTERIA WI TH GRAM STAINon 06-09-2025 CULTURE, AEROBIC BACTERIA WITH GRAM STAIN Normal [facility] Comment on above: Performed By: #### L AB897 ####Cardboard Inserter: VASHTI BAILEY ([id number])[facility] [place] [address] Comprehensive metabolic 1998 panelon 06-09-2025 Albumin [Mass/Vol] 2.4 g/dL Low 3.4 - 4.8 g/dL [facility] ALP [Catalytic activity/Vol] 117 U/L 40 - 150 U/L [facility] ALT [Catalytic activity/Vol] 9 U/L NINF - 30 U/L [facility] Anion gap [Moles/Vol] 11 mmol/L 3 - 13 mmol/L [facility] AST [Catalytic activity/Vol] 18 U/L NINF - 34 U/L [facility] Bilirubin [Mass/Vol] 0.5 mg/dL NINF - 1.2 mg/dL [facility] Calcium [Mass/Vol] 9.1 mg/dL 8.8 - 10. 0 mg/dL [facility] Chloride [Moles/Vol] 99 mmol/L 98 - 10 7 mmol/L [facility] CO2 [Moles/Vol] 26 mmol/L 23 - 31 mmol/L [facility] Creatinine [Mass/Vol] 2.37 mg/dL High 0.57 - 1.11 mg/dL [facility] GFR/1.73 sq M.predicted (S/P/Bld) [Vol rate/Area] 20.6 mL/min Low - PINF [facility] Glucose [Mass/Vol] 101 mg/dL 82 - 115 mg/dL [facility] Interpretation and review of laboratory results Abnormal [facility] Potassium [Moles/Vol] 3.8 mmol/L 3.5 - 5.1 mmol/L [facility] Protein [Mass/Vol] 6.6 g/dL 6.4 - 8.3 g/dL [facility] Sodium [Moles/Vol] 136 mmol/L 136 - 145 mmol/L [facility] Urea nitrogen [Mass/Vol] 26 mg/dL High 9 - 23 mg/dL [facility] HEMOGLOBIN AND HEMATOCRIT, B LOODon 06-09-2025 Hematocrit (Bld) [Volume fraction] 22.8 % Low 35.0-47.0 [facility] Comment on above: Performed By: #### L AB753 ####Cardboard Inserter: NATALIE GARCIA ([id number])[facility] ([facility])[address] [place] [address] Hemoglobin (Bld) [Mass/Vol] 7.3 g/dL Low 11.7-16.0 [facility] Comment on above: Performed By: #### L AB753 ####Cardboard Inserter: NATALIE GARCIA ([id number])[facility] ([facility])[address] [place] [address] Hemoglobin (Bld) [Mass/Vol]o n 06-09-2025 Hematocrit (Bld) [Volume fraction] 22.8 % Low 35.0 - 47.0 % [facility] Interpretation and review of laboratory results Abnormal [facility] Laboratory - Chemistry and C hemistry - challengeon 06-09-2025 Glucose [Mass/Vol] 97 mg/dL 70 - 100 mg/dL [facility] Glucose [Mass/Vol] 94 mg/dL 70 - 100 mg/dL [facility] Glucose [Mass/Vol] 116 mg/dL High 70 - 100 mg/dL [facility] Glucose [Mass/Vol] 111 mg/dL High 70 - 100 mg/dL [facility] Laboratory - Hematology and Cell countson 06-09-2025 Hemoglobin (Bld) [Mass/Vol] 7.3 g/dL Low 11.7 - 16.0 g/dL [facility] Laboratory - Microbiology an d Antimicrobial susceptibilityOrdered By: Alcides Sims on 06-09-2025 Bacteria identified Cx Nom (Catheter tip) >15 CFU Serratia marcescens Abnormal [facility] No Panel Informationon 06-09 Interpretation and review of laboratory results Normal Formerly Named [facility] Interpretation and review of laboratory results Normal Formerly Named [facility] Interpretation and review of laboratory results Abnormal Formerly Named [facility] Interpretation and review of laboratory results Abnormal Formerly Named [facility] Progress Noteon 06-09-2025 Progress Note Normal [facility] Progress Note Normal [facility] Progress Note Normal [facility] Progress Note Normal [facility] [id number] 06-08-2025 [id number] Normal [facility] CBC (HEMOGRAM)on 06-08-2025 Erythrocyte distribution width (RBC) [Ratio] 19.2 % High 11.5-15.0 [facility] Comment on above: Performed By: #### L [id number] ####Cardboard Inserter: NATALIE GARCIA ([id number])[facility] ([facility])[address] [place] [address] Hematocrit (Bld) [Volume fraction] 24.6 % Low 35.0-47.0 [facility] Comment on above: Performed By: #### L AB294 ####Cardboard Inserter: NATALIE GARCIA ([id number])ELOINA MONTENEGROLaurel (SBHLAB)[address] Hemoglobin (Bld) [Mass/Vol] 7.7 g/dL Low 11.7-16.0 [facility] Comment on above: Performed By: #### L AB294 ####Cardboard Inserter: NATALIE GARCIA ([id number])[facility]AMPUSJos[facility] Miguel REHMANELIAS (SBHLAB)[address] MCH (RBC) [Entitic mass] 26.0 pg Normal 26.0-34.0 [facility] Comment on above: Performed By: #### L AB294 ####Cardboard Inserter: NATALIE GARCIA ([id number])[facility]AMPUSJosé Miguel REHMANREHOBOTH MCKINLEY CHRISTIAN HEALTH CARE SERVICESLaurel (SBHLAB)[address] MCHC 31.3 % Normal 30.5-36.0 [facility] Comment on above: Performed By: #### L AB294 ####Cardboard Inserter: NATALIE GARCIA ([id number])[facility]AMPUSJosé Miguel MONTENEGROLaurel (SBHLAB)[address] MCV (RBC) [Entitic vol] 83.1 fL Normal 77.0-99.0 [facility] Comment on above: Performed By: #### L AB294 ####Cardboard Inserter: NATALIE GARCIA ([id number])[facility]USJosé Miguel REHMANREHOBOTH MCKINLEY CHRISTIAN HEALTH CARE SERVICESLaurel (SBHLAB)[address] Platelet mean volume (Bld) [Entitic vol] 9.9 fL Normal 9.0-12.7 [facility] Comment on above: Performed By: #### L AB294 ####Cardboard Inserter: NATALIE GARCIA ([id number])[facility]USJosé Miguel REHMANREHOBOTH MCKINLEY CHRISTIAN HEALTH CARE SERVICESLaurel (SBHLAB)[address] Platelets (Bld) [#/Vol] 236 10*3/uL Normal 140-440 [facility] Comment on above: Performed By: #### L AB294 ####Cardboard Inserter: NATALIE [id number])[facility]AMPUSJosé Miguel [facility] (SBHLAB)[address] RBC (Bld) [#/Vol] 2.96 10*6/uL Low 3.80-5.20 [facility] Comment on above: Performed By: #### L AB294 ####Cardboard Inserter: NATALIE DENISETRICIA ([id number])[facility]AMPUSJosé Miguel [facility]MANLITTLE [facility]AD[facility] (SBHLAB)[address] WBC (Bld) [#/Vol] 6.5 10*3/uL Normal 3.6-10.7 [facility] Comment on above: Performed By: #### L AB294 ####Cardboard Inserter: NATALIE DENISETRICIA ([id number])[facility]AMPUSJosé Miguel [place] (SBHLAB)[address] CBC panel Auto (Bld)on 06-08 Erythrocyte distribution width (RBC) [Ratio] 19.2 % High 11.5 - 15.0 % [facility] Hematocrit (Bld) [Volume fraction] 24.6 % Low 35.0 - 47.0 % [facility] Hemoglobin (Bld) [Mass/Vol] 7.7 g/dL Low 11.7 - 16.0 g/dL [facility] Interpretation and review of laboratory results Abnormal [facility] MCH (RBC) [Entitic mass] 26 pg 26.0 - 34.0 pg [facility] MCHC (RBC) [Mass/Vol] 31.3 % 30.5 - 36.0 % [facility] MCV (RBC) [Entitic vol] 83.1 fL 77.0 - 99.0 fL [facility] Platelet mean volume (Bld) [Entitic vol] 9.9 fL 9.0 - 12.7 fL [facility] Platelets (Bld) [#/Vol] 236 10*3/uL 140 - 440 10*3/uL [facility] RBC (Bld) [#/Vol] 2.96 10*6/uL Low 3.80 - 5.2 0 10*6/uL [facility] WBC (Bld) [#/Vol] 6.5 10*3/uL 3.6 - 10.7 10*3/uL [facility] COMPREHENSIVE METABOLIC PANE Florentin 06-08-2025 Albumin [Mass/Vol] 2.5 g/dL Low 3.4-4.8 [facility] Comment on above: Performed By: #### L AB96, LAB17 ####Cardboard Inserter: NATALIE GARCIA ([id number])[facility]AMPUSA [place] (SBHLAB)[address] ALP [Catalytic activity/Vol] 118 U/L Normal 40-150 [facility] Comment on above: Performed By: #### L AB96, LAB17 ####Cardboard Inserter: NATALIE GARCIA ([id number])[facility] CAMPUSA [facility] (SBHLAB)[address] ALT [Catalytic activity/Vol] 9 U/L Normal <30 [facility] Comment on above: Performed By: #### L AB96, LAB17 ####Cardboard Inserter: NATALIE GARCIA ([id number])[facility]AMPUSA [place] (SBHLAB)[address] Anion gap [Moles/Vol] 10 mmol/L Normal 3-13 [facility] Comment on above: Performed By: #### L AB96, LAB17 ####Cardboard Inserter: NATALIE GARCIA ([id number])[facility]AMPUSA [place] (SBHLAB)[address] AST [Catalytic activity/Vol] 16 U/L Normal <34 [facility] Comment on above: Performed By: #### L AB96, LAB17 ####Cardboard Inserter: NATALIE GARCIA ([id number])[facility]AMPUSA [place] (SBHLAB)[address] Bilirubin [Mass/Vol] 0.5 mg/dL Normal <1.2 [facility] Comment on above: Performed By: #### L AB96, LAB17 ####Cardboard Inserter: NATALIE GARCIA ([id number])[facility] CAMPUSA [facility] (SBHLAB)[address] [place] [address] [place] Calcium [Mass/Vol] 9.1 mg/dL Normal 8.8-10.0 [facility] Comment on above: Performed By: #### L AB96, LAB17 ####Cardboard Inserter: NATALIE GARCIA ([id number])[facility] CAMPUSJosé Miguel [facility] (SBHLAB)[address] Chloride [Moles/Vol] 95 mmol/L Low 98-107 [facility] Comment on above: Performed By: #### L AB96, LAB17 ####Cardboard Inserter: NATALIE GARCIA ([id number])[facility] CAMPUSJosé Miguel GARY (SBHLAB)[address] CO2 [Moles/Vol] 24 mmol/L Normal 23-31 [facility] Comment on above: Performed By: #### L AB96, LAB17 ####Cardboard Inserter: NATALIE GARCIA ([id number])[facility] CAMPUSJosé Miguel GARY (SBHLAB)[address] Creatinine [Mass/Vol] 4.25 mg/dL High 0.57-1.11 [facility] Comment on above: Performed By: #### L AB96, LAB17 ####Cardboard Inserter: NATALIE GARCIA ([id number])[facility] CAMPUSJosé Miguel [facility]MANLITT[facility] (SBHLAB)[address] GLOMERULAR FILTRATION RATE ML/MIN/1.73 SQ M.PREDICTED 10.2 mL/min/1.73m*2 Low >60.0 [facility] Comment on above: Result Comment: Calc ulation based on the Chronic Kidney Disease Epidemiology Collaboration (CKD-EPI) equation refit without adjustment for race Performed By: #### L AB96, LAB17 ####Cardboard Inserter: NATALIE GARCIA ([id number])[facility] CAMPUSJosé Miguel [facility]MANLITT[facility] (SBHLAB)[address] Glucose [Mass/Vol] 150 mg/dL High 82-115 [facility] Comment on above: Performed By: #### L AB96, LAB17 ####Cardboard Inserter: NATALIE GARCIA ([id number])[facility] CAMPUSA TAMARREHOBOTH MCKINLEY CHRISTIAN HEALTH CARE SERVICESN (SBHLAB)[address] Potassium [Moles/Vol] 3.8 mmol/L Normal 3.5-5.1 [facility] Comment on above: Result Comment: [facility] potassium values may be up to 0.5 mmol/L lower than serum values. Performed By: #### L AB96, LAB17 ####Cardboard Inserter: NATALIE GARCIA ([id number])[facility] (SBHLAB)[address] Protein [Mass/Vol] 6.5 g/dL Normal 6.4-8.3 [facility] Comment on above: Performed By: #### L AB96, LAB17 ####Cardboard Inserter: NATALIE GARCIA ([id number])[facility] (SBHLAB)[address] Sodium [Moles/Vol] 129 mmol/L Low 136-145 [facility] Comment on above: Performed By: #### L AB96, LAB17 ####Cardboard Inserter: NATALIE GARCIA ([id number])[facility] (SBHLAB)[address] Urea nitrogen [Mass/Vol] 51 mg/dL High 9-23 [facility] Comment on above: Performed By: #### L AB96, LAB17 ####Cardboard Inserter: NATALIE GARCIA ([id number])[facility] (SBHLAB)[address] Comprehensive metabolic 1998 panelon 06-08-2025 Albumin [Mass/Vol] 2.5 g/dL Low 3.4 - 4.8 g/dL [facility] ALP [Catalytic activity/Vol] 118 U/L 40 - 150 U/L [facility] ALT [Catalytic activity/Vol] 9 U/L NINF - 30 U/L [facility] Anion gap [Moles/Vol] 10 mmol/L 3 - 13 mmol/L [facility] AST [Catalytic activity/Vol] 16 U/L NINF - 34 U/L [facility] Bilirubin [Mass/Vol] 0.5 mg/dL NINF - 1.2 mg/dL [facility] Calcium [Mass/Vol] 9.1 mg/dL 8.8 - 10. 0 mg/dL [facility] Chloride [Moles/Vol] 95 mmol/L Low 98 - 10 7 mmol/L [facility] CO2 [Moles/Vol] 24 mmol/L 23 - 31 mmol/L [facility] Creatinine [Mass/Vol] 4.25 mg/dL High 0.57 - 1.11 mg/dL [facility] GFR/1.73 sq M.predicted (S/P/Bld) [Vol rate/Area] 10.2 mL/min Low - PINF [facility] Glucose [Mass/Vol] 150 mg/dL High 82 - 115 mg/dL [facility] Interpretation and review of laboratory results Abnormal [facility] Potassium [Moles/Vol] 3.8 mmol/L 3.5 - 5.1 mmol/L [facility] [facility] Protein [Mass/Vol] 6.5 g/dL 6.4 - 8.3 g/dL [facility] Sodium [Moles/Vol] 129 mmol/L Low 136 - 145 mmol/L [facility] Urea nitrogen [Mass/Vol] 51 mg/dL High 9 - 23 mg/dL [facility] LACTATE DEHYDROGENASEon 05-28 LDH [Catalytic activity/Vol] 213 U/L Normal 125-220 [facility] Comment on above: Performed By: #### L AB96, [id number] ####Cardboard Inserter: NATALIE GARCIA ([id number])[facility] ([facility])[address] [place] [address] LDH Lactate to pyruvate reac tion [Catalytic activity/Vol]on 06-08-2025 Interpretation and review of laboratory results Normal [facility] Laboratory - Chemistry and C hemistry - challengeon 06-08-2025 Glucose [Mass/Vol] 98 mg/dL 70 - 100 mg/dL [facility] Glucose [Mass/Vol] 131 mg/dL High 70 - 100 mg/dL [facility] Glucose [Mass/Vol] 161 mg/dL High 70 - 100 mg/dL [facility] Glucose [Mass/Vol] 166 mg/dL High 70 - 100 mg/dL [facility] LDH Lactate to pyruvate reaction [Catalytic activity/Vol] 213 U/L 125 - 220 U/L [facility] Glucose [Mass/Vol] 156 mg/dL High 70 - 100 mg/dL [facility] No Panel Informationon 06-08 Interpretation and review of laboratory results Normal [facility] Interpretation and review of laboratory results Abnormal [facility] Interpretation and review of laboratory results Abnormal [facility] Interpretation and review of laboratory results Abnormal [facility] Interpretation and review of laboratory results Abnormal [facility] Progress Noteon 06-08-2025 Progress Note [facility] Progress [facility] X[facility] CHEST 1 VIEWon 06-08-2025 XR CHEST 1 VIEW Normal [facility] XR Chest Single viewon 06-08 [facility] Radiology Study observation (narrative) [facility] XR Chest Single viewOrdered By: Timbo Mojica on 06-08-2025 [facility] Work Phone: [phone] 06-07-2025 [id number] Normal [facility] BLOOD CULTUREon 06-07-2025 Bacteria identified Cx Nom (Bld) Normal [facility] Comment on above: Performed By: #### L [id number] ####Cardboard Inserter: VASHTI BAILEY ([id number])[facility] ([address] Bacteria identified Cx Nom (Bld) Normal [facility] Comment on above: Performed By: #### L [id number] ####Cardboard Inserter: VASHTI BAILEY ([id number])[address] CBC (HEMOGRAM)on 06-07-2025 Erythrocyte distribution width (RBC) [Ratio] 19.2 % High 11.5-15.0 [facility] Comment on above: Performed By: #### L [id number] ####Cardboard Inserter: NATALIE GARCIA ([id number])[facility] ([facility])[address] Hematocrit (Bld) [Volume fraction] 24.4 % Low 35.0-47.0 [facility] Comment on above: Performed By: #### L [id number] ####Cardboard Inserter: NATALIE GARCIA ([id number])[facility] REHMANELIAS (SBHLAB)[address] Hemoglobin (Bld) [Mass/Vol] 7.5 g/dL Low 11.7-16.0 [facility] Comment on above: Performed By: #### L [id number] ####Cardboard Inserter: NATALIE GARCIA ([id number])[facility]AMPUSJos[facility] Miguel [facility] (SBHLAB)[address] [place] [address] MCH (RBC) [Entitic mass] 26.0 pg Normal 26.0-34.0 [facility] Comment on above: Performed By: #### L [id number] ####Cardboard Inserter: NATALIE GARCIA ([id number])[facility] CAMPUSJosé Miguel REHMANEL[facility] (SBHLAB)[address] [place] [address] MCHC 30.7 % Normal 30.5-36.0 [facility] Comment on above: Performed By: #### L [id number] ####Cardboard Inserter: NATALIE GARCIA ([id number])SIMINJosé Miguel REHMANELIAS (SBHLAB)[address] [place] [address] MCV (RBC) [Entitic vol] 84.4 fL Normal 77.0-99.[address] [facility] Comment on above: Performed By: #### L [id number] ####Cardboard Inserter: NATALIE GARCIA ([id number])[facility] CAMPUSJosé Miguel REHMANELIAS (SBHLAB)[address] Platelet mean volume (Bld) [Entitic vol] 9.5 fL Normal 9.0-12.7 [facility] Comment on above: Performed By: #### L [id number] ####Cardboard Inserter: ANTALIE GARCIA ([id number])ELOINA TORRES (SBHLAB)[address] Platelets (Bld) [#/Vol] 234 10*3/uL Normal 140-440 [facility] Comment on above: Performed By: #### L [id number] ####Cardboard Inserter: NATALIE GARCIA ([id number])[facility] CAMPUSJosé Miguel RE[facility]MANLITT[facility] (SBHLAB)[address] RBC (Bld) [#/Vol] 2.89 10*6/uL Low 3.80-5.20 [facility] Comment on above: Performed By: #### L [id number] ####Cardboard Inserter: NATALIE GARCIA ([id number])[facility] CAMPUSJosé Miguel REHMANLITT[facility] (HLAB)[address] [place] [address] WBC (Bld) [#/Vol] 7.4 10*3/uL Normal 3.6-10.7 [facility] Comment on above: Performed By: #### L [id number] ####Cardboard Inserter: NATALIE GARCIA ([id number])[facility] CAMPUSJosé Miguel [facility]MANLITT[facility] (HLAB)[address] [place] [address] CBC panel Auto (Bld)on 06-07 Erythrocyte distribution width (RBC) [Ratio] 19.2 % High 11.5 - 15.0 % [facility] Hematocrit (Bld) [Volume fraction] 24.4 % Low 35.0 - 47.0 % [facility] Hemoglobin (Bld) [Mass/Vol] 7.5 g/dL Low 11.7 - 16.0 g/dL [facility] Interpretation and review of laboratory results Abnormal [facility] MCH (RBC) [Entitic mass] 26 pg 26.0 - 34.0 pg [facility] MCHC (RBC) [Mass/Vol] 30.7 % 30.5 - 36.0 % [facility] MCV (RBC) [Entitic vol] 84.4 fL 77.0 - 99.0 fL [facility] Platelet mean volume (Bld) [Entitic vol] 9.5 fL 9.0 - 12.7 fL [facility] Platelets (Bld) [#/Vol] 234 10*3/uL 140 - 440 10*3/uL [facility] RBC (Bld) [#/Vol] 2.89 10*6/uL Low 3.80 - 5.2 0 10*6/uL [facility] WBC (Bld) [#/Vol] 7.4 10*3/uL 3.6 - 10.7 10*3/uL [facility] COMPREHENSIVE METABOLIC PANE Florentin 06-07-2025 Albumin [Mass/Vol] 2.7 g/dL Low 3.4-4.8 [facility] Comment on above: Performed By: #### L AB17 ####Cardboard Inserter: NATALIE GARCIA ([id number])[facility] CAMPUSA [facility]ERN (SBHLAB)[address] ALP [Catalytic activity/Vol] 123 U/L Normal 40-150 [facility] Comment on above: Performed By: #### L AB17 ####Cardboard Inserter: NATALIE GARCIA ([id number])[facility] (SB[facility])[address] ALT [Catalytic activity/Vol] 9 U/L Normal <30 [facility] Comment on above: Performed By: #### L AB17 ####Cardboard Inserter: NATALIE GARCIA ([id number])[facility] (SBHLAB)[address] Anion gap [Moles/Vol] 11 mmol/L Normal 3-13 [facility] Comment on above: Performed By: #### L AB17 ####Cardboard Inserter: NATALIE GARCIA ([id number])[facility] (SBHL[facility])[address] AST [Catalytic activity/Vol] 19 U/L Normal <34 [facility] Comment on above: Performed By: #### L AB17 ####Cardboard Inserter: NATALIE GARCIA ([id number])[facility] (SBHLAB)[address] Bilirubin [Mass/Vol] 0.6 mg/dL Normal <1.2 [facility] Comment on above: Performed By: #### L AB17 ####Cardboard Inserter: NATALIE GARCIA ([id number])[facility] CAMPUSJosé Miguel REHMANELIAS (SBHLAB)[address] Calcium [Mass/Vol] 9.4 mg/dL Normal 8.8-10.0 [facility] Comment on above: Performed By: #### L AB17 ####Cardboard Inserter: NATALIE GARCIA ([id number])[facility] CAMPUSA [place] (SBHLAB)[address] Chloride [Moles/Vol] 96 mmol/L Low 98-107 [facility] Comment on above: Performed By: #### L AB17 ####Cardboard Inserter: NATALIE GARCIA ([id number])[facility] CAMPUSJosé Miguel BARBMAGNUSN (SBHLAB)[address] CO2 [Moles/Vol] 26 mmol/L Normal 23-31 [facility] Comment on above: Performed By: #### L AB17 ####Cardboard Inserter: NATALIE GARCIA ([id number])[facility] CAMPUSJosé Miguel BARBMAGNUSN (SBHLAB)[address] Creatinine [Mass/Vol] 3.68 mg/dL High 0.57-1.11 [facility] Comment on above: Performed By: #### L AB17 ####Cardboard Inserter: NATALIE GARCIA ([id number])[facility] CAMPUSJosé Miguel REHMANMAGNUSN (SBHLAB)[address] [place] [address] [place] GLOMERULAR FILTRATION RATE ML/MIN/1.73 SQ M.PREDICTED 12.2 mL/min/1.73m*2 Low >60.0 [facility] Comment on above: Result Comment: Calc ulation based on the Chronic Kidney Disease Epidemiology Collaboration (CKD-EPI) equation refit without adjustment for race Performed By: #### L AB17 ####Cardboard Inserter: NATALIE GARCIA ([id number])[facility] CAMPUSJosé Miguel BARBMAGNUSN (SBHLAB)[address] Glucose [Mass/Vol] 119 mg/dL High 82-115 [facility] Comment on above: Performed By: #### L AB17 ####Cardboard Inserter: NATALIE GARCIA ([id number])[facility] (SBHLAB)[address] Potassium [Moles/Vol] 3.7 mmol/L Normal 3.5-5.1 [facility] Comment on above: Result Comment: [facility] potassium values may be up to 0.5 mmol/L lower than serum values. Performed By: #### L AB17 ####Cardboard Inserter: NATALIE GARCIA ([id number])[facility] (SBHLAB)[address] Protein [Mass/Vol] 6.8 g/dL Normal 6.4-8.3 [facility] Comment on above: Performed By: #### L AB17 ####Cardboard Inserter: NATALIE GARCIA ([id number])[facility] (SBHLAB)[address] Sodium [Moles/Vol] 133 mmol/L Low 136-145 [facility] Comment on above: Performed By: #### L AB17 ####Cardboard Inserter: NATALIE DENISETRICIA ([id number])[facility] (SBHLAB)[address] Urea nitrogen [Mass/Vol] 40 mg/dL High 9-23 [facility] Comment on above: Performed By: #### L AB17 ####Cardboard Inserter: NATALIE GARCIA ([id number])[facility] (SBHLAB)[address] [place] [address] [place] CULTURE ANAEROBICon 06-07-20 CULTURE ANAEROBIC Normal [facility] Comment on above: Performed By: #### L [id number] ####Cardboard Inserter: VASHTI BAILEY ([id number])[facility] ([facility])[address] [place] [id number] [place] [address] CULTURE, AEROBIC BACTERIA WI TH GRAM STAINon 06-07-2025 CULTURE, AEROBIC BACTERIA WITH GRAM STAIN Normal [facility] Comment on above: Performed By: #### L AB897 ####Cardboard Inserter: VASHTI BAILEY ([id number])[facility] ([address] Comprehensive metabolic 1998 panelon 06-07-2025 Albumin [Mass/Vol] 2.7 g/dL Low 3.4 - 4.8 g/dL [facility] ALP [Catalytic activity/Vol] 123 U/L 40 - 150 U/L [facility] ALT [Catalytic activity/Vol] 9 U/L NINF - 30 U/L [facility] Anion gap [Moles/Vol] 11 mmol/L 3 - 13 mmol/L [facility] AST [Catalytic activity/Vol] 19 U/L NINF - 34 U/L [facility] Bilirubin [Mass/Vol] 0.6 mg/dL NINF - 1.2 mg/dL [facility] Calcium [Mass/Vol] 9.4 mg/dL 8.8 - 10. 0 mg/dL [facility] Chloride [Moles/Vol] 96 mmol/L Low 98 - 10 7 mmol/L [facility] CO2 [Moles/Vol] 26 mmol/L 23 - 31 mmol/L [facility] Creatinine [Mass/Vol] 3.68 mg/dL High 0.57 - 1.11 mg/dL [facility] GFR/1.73 sq M.predicted (S/P/Bld) [Vol rate/Area] 12.2 mL/min Low - PINF [facility] Glucose [Mass/Vol] 119 mg/dL High 82 - 115 mg/dL [facility] Interpretation and review of laboratory results Abnormal [facility] Potassium [Moles/Vol] 3.7 mmol/L 3.5 - 5.1 mmol/L [facility] Protein [Mass/Vol] 6.8 g/dL 6.4 - 8.3 g/dL [facility] Sodium [Moles/Vol] 133 mmol/L Low 136 - 145 mmol/L [facility] Urea nitrogen [Mass/Vol] 40 mg/dL High 9 - 23 mg/dL [facility] Health Consulton 06-07-2025 Consult Normal [facility] LACTATE DEHYDROGENASE, BODY FLUIDon 06-07-2025 LACTATE DEHYDROGENASE, BODY FLUID BY LAC->PYR 91 U/L Normal [facility] Comment on above: Performed By: #### L [id number], [id number] ####Cardboard Inserter: VASHTI BAILEY ([id number])[facility] ([facility])[address] [place] [address] LaboratoryOrdered By: Benigno Christian on 06-07-2025 Fluid Nom (Body fld) Pleural Fluid S [facility] Laboratoryon 06-07-2025 Fluid Nom (Body fld) Pleural Fluid S [facility] Laboratory - Chemistry and C hemistry - challengeon 06-07-2025 Glucose [Mass/Vol] 140 mg/dL High 70 - 100 mg/dL [facility] Protein (Body fld) [Mass/Vol] 3.9 g/dL [facility] Glucose [Mass/Vol] 134 mg/dL High 70 - 100 mg/dL [facility] Glucose [Mass/Vol] 137 mg/dL High 70 - 100 mg/dL [facility] Laboratory - Chemistry and C hemistry - challengeOrdered By: Benigno Christian on 06-07-2025 LDH (Body fld) [Catalytic activity/Vol] 91 U/L [facility] No Panel Informationon 06-07 Interpretation and review of laboratory results Abnormal [facility] RADIOLOG[facility] Interpretation and review of laboratory results Abnormal [facility] Radiology Study observation (narrative) [facility] Interpretation and review of laboratory results Abnormal [facility] No Panel InformationOrdered By: Benigno Christian on 06-07-2025 [facility] No Panel InformationOrdered By: Yoana Hayes on 06-07-2025 [facility] Work Phone: Nursing Noteon 06-07-2025 Nursing Note Normal [facility] Nursing Note Normal [facility] PROTEIN BODY FLUIDon 025 PROTEIN, BODY FLUID 3.9 g/dL Normal [facility] Comment on above: Performed By: #### L [id number], [id number] ####Cardboard Inserter: VASHTI BAILEY ([id number])[facility] ([facility])[address] [place] [address] TYPE OF BODY FLUID Pleural Fluid Normal [facility] Comment on above: Result Comment: DORIAN Knight COMMENTS:This test was developed and its performance characteristics determined by [employer]. It has not been cleared or approved by the [place] Food and Drug Administration. This test was performed in a CLIA certified laboratory and is intended for clinical purposes.Pleural qgvbm-xs-nmkxj protein ratio of >0.5 is one of Light???s criteria for an exudate. Heart failure associated misclassifications (by Light???s criteria) may be differentiated as transudative effusions by subsequently evaluating a cosxo-eg-hbbhvhc albumin gradient (>1.2 g/dL) and/or a qhayt-ab-htvcs protein gradient (>3.1 g/dL). Performed By: #### L AB188, [id number] ####Cardboard Inserter: VASHTI BAILEY ([id number])[facility] ([facility] Result Comment: DORIAN Knight COMMENTS:This test was developed and its performance characteristics determined by [employer]. It has not been cleared or approved by the [place] Food and Drug Administration. This test was performed in a CLIA certified laboratory and is intended for clinical purposes.Exudates are defined as meeting one of the following criteria: (a) Pleural emmbf-vp-znwye protein ratio of >0.5, (b) pleural vpwcr-zz-zmlvh LDH ratio of >0.6, or (c)a pleural fluid LDH activity that is >2/3 the upper limit of a normal serum LDH activity (Light???s criteria). Progress Noteon 06-07-2025 Progress Note [facility] Progress Note Normal [facility] Progress [facility] Normal [facility] Progress Note Normal [facility] Progress [facility] Normal [facility] Progress Note Normal [facility] Respiratory pathogens DNA an d RNA panel PATEL+non-probe (Lower resp)Ordered By: Nithya Carrasquillo on 06-07-2025 Acinetobacter baumannii complex Not detected Not Detected [facility] Adenovirus Not detected Not Detected [facility] th C. pneumoniae DNA PATEL+non-probe Ql (Lower resp) Not detected Not Detected [facility] Enterobacter cloacae complex Not detected Not Detected [facility] Escherichia coli Not detected Not Detected [facility] FLUAV RNA PATEL+non-probe Ql (Lower resp) Not detected Not Detected [facility] FLUBV RNA PATEL+non-probe Ql (Lower resp) Not detected Not Detected [facility] Haemophilus influenzae Not detected Not Detecte d [facility] Human Metapneumovirus Not detected Not Detected [facility] Human Rhinovirus/Enterovirus Not detected Not Detected [facility] Interpretation and review of laboratory results Abnormal [facility] Klebsiella (Enterobacter) aerogenes Not detected Not Detected [facility] Klebsiella oxytoca Not detected Not Detected [facility] Klebsiella pneumoniae Not detected Not Detected [facility] L. pneumophila DNA PATEL+non-probe Ql (Lower resp) Not detected Not Detected [facility] Moraxella catarrhalis Not detected Not Detected [facility] Mycoplasma pneumoniae Not detected Not Detected [facility] Parainfluenza virus Not detected Not Detected [facility] Proteus spp Detected Abnormal Not Detected [facility] Pseudomonas aeruginosa Detected Abnormal Not Detected [facility] RSV RNA PATEL+probe Ql (Resp) Not detected Not Detected [facility] S. agalactiae DNA PATEL+non-probe Ql (Sput) Not detected Not Detected [facility] alth SARS-CoV-2 (COVID-19) RNA PATEL+non-probe Ql (Nph) Not detected Not Detected [facility] Serratia marcescens Detected Abnormal Not Detected [facility] Staphylococcus aureus Not detected Not Detected [facility] Streptococcus pneumoniae Not detected Not Detected [facility] Streptococcus pyogenes Not detected Not Detecte d [facility] US GUIDED THORACENTESISon US GUIDED THORACENTESIS Normal S [facility] [id number] 06-06-2025 [id number] Normal [facility] BLOOD TYPE AND SCREEN GELon 06-06-2025 ABO GROUPING A Normal [facility] Comment on above: Performed By: #### L [id number] ####Cardboard Inserter: NATALIE GARCIA ([id number])[facility] ([facility])[address] RH TYPE IN BLOOD Positive Normal [facility] Comment on above: Performed By: #### L AB276 ####Cardboard Inserter: NATALIE GARCIA ([id number])[facility] ([facility])[address] [place] [address] CBC (HEMOGRAM)on 06-06-2025 Erythrocyte distribution width (RBC) [Ratio] 19.4 % High 11.5-15.0 [facility] Comment on above: Performed By: #### L [id number] ####Cardboard Inserter: NATALIE GARCIA ([id number])[facility] ([facility])[address] Hematocrit (Bld) [Volume fraction] 24.5 % Low 35.0-47.0 [facility] Comment on above: Performed By: #### L [id number] ####Cardboard Inserter: NATALIE GARCIA ([id number])[facility] ([facility])[address] [place] [address] Hemoglobin (Bld) [Mass/Vol] 7.2 g/dL Low 11.7-16.0 [facility] Comment on above: Performed By: #### L [id number] ####Cardboard Inserter: NATALIE GARCIA ([id number])[facility] ([facility])[address] [place] [address] MCH (RBC) [Entitic mass] 25.4 pg Low 26.0-34.0 [facility] Comment on above: Performed By: #### L [id number] ####Cardboard Inserter: NATALIE GARCIA ([id number])[facility] ([facility])[address] [place] [address] MCHC 29.4 % Low 30.5-36.0 [facility] Comment on above: Performed By: #### L AB294 ####Cardboard Inserter: NATALIE GARCIA ([id number])[facility] ([facility])[address] [place] [address] MCV (RBC) [Entitic vol] 86.3 fL Normal 77.0-99.0 [facility] Comment on above: Performed By: #### L AB294 ####Cardboard Inserter: NATALIE GARCIA ([id number])[facility] ([facility])[address] Platelet mean volume (Bld) [Entitic vol] 10.1 fL Normal 9.0-12.7 [facility] Comment on above: Performed By: #### L AB294 ####Cardboard Inserter: NATALIE GARCIA ([id number])[facility] [place] ([facility])[address] Platelets (Bld) [#/Vol] 197 10*3/uL Normal 140-440 [facility] Comment on above: Performed By: #### L AB294 ####Cardboard Inserter: NATALIE GARCIA ([id number])[facility] [place] ([facility])[address] RBC (Bld) [#/Vol] 2.84 10*6/uL Low 3.80-5.20 [facility] Comment on above: Performed By: #### L AB294 ####Cardboard Inserter: NATALIE GARCIA ([id number])[facility] [place] ([facility])[address] WBC (Bld) [#/Vol] 5.9 10*3/uL Normal 3.6-10.7 [facility] Comment on above: Performed By: #### L [id number] ####Cardboard Inserter: NATALIE GARCIA ([id number])[facility] [place] ([facility])[address] COMPREHENSIVE METABOLIC PANE Florentin 06-06-2025 Albumin [Mass/Vol] 2.6 g/dL Low 3.4-4.8 [facility] Comment on above: Performed By: #### L AB17 ####Cardboard Inserter: NATALIE GARCIA ([id number])[facility] [facility] [place] ([facility] ALP [Catalytic activity/Vol] 113 U/L Normal 40-150 [facility] Comment on above: Performed By: #### L AB17 ####Cardboard Inserter: NATALIE DENISETRICIA ([id number])[facility] [place] (SBHLAB)[address] ALT [Catalytic activity/Vol] 12 U/L Normal <30 [facility] Comment on above: Performed By: #### L AB17 ####Cardboard Inserter: NATALIE DENISETRICIA ([id number])[facility] [place] (SBHLAB)[address] Anion gap [Moles/Vol] 10 mmol/L Normal 3-13 [facility] Comment on above: Performed By: #### L AB17 ####Cardboard Inserter: NATALIE DENISETRICIA ([id number])[facility] [place] ([facility] AST [Catalytic activity/Vol] 21 U/L Normal <34 [facility] Comment on above: Performed By: #### L AB17 ####Cardboard Inserter: NATALIE DENISETRICIA ([id number])[facility] [place] ([facility])[address] Bilirubin [Mass/Vol] 0.5 mg/dL Normal <1.2 [facility] Comment on above: Performed By: #### L AB17 ####Cardboard Inserter: NATALIE DENISETRICIA ([id number])[facility] [place] ([facility])[address] Calcium [Mass/Vol] 9.0 mg/dL Normal 8.8-10.0 [facility] Comment on above: Performed By: #### L AB17 ####Cardboard Inserter: NATALIE SIMONDANIEL ([id number])[facility] [place] (SB[facility])155 [place] [address] [place] Chloride [Moles/Vol] 98 mmol/L Normal 98-107 [facility] Comment on above: Performed By: #### L AB17 ####Cardboard Inserter: NATALIE DENISETRICIA ([id number])[facility] [place] (SB[facility])[address] [place] [address] [place] CO2 [Moles/Vol] 26 mmol/L Normal 23-31 [facility] Comment on above: Performed By: #### L AB17 ####Cardboard Inserter: NATALIE GARCIA ([id number])[facility] (SBHLAB)[address] Creatinine [Mass/Vol] 2.79 mg/dL High 0.57-1.11 [facility] Comment on above: Performed By: #### L AB17 ####Cardboard Inserter: NATALIE GARCIA ([id number])[facility] (SBAB)155 [place] [address] [place] GLOMERULAR FILTRATION RATE ML/MIN/1.73 SQ M.PREDICTED 17.0 mL/min/1.73m*2 Low >60.0 [facility] Comment on above: Result Comment: Calc ulation based on the Chronic Kidney Disease Epidemiology Collaboration (CKD-EPI) equation refit without adjustment for race Performed By: #### L AB17 ####Cardboard Inserter: NATALIE GARCIA ([id number])[facility] (SBHLAB)[address] Glucose [Mass/Vol] 145 mg/dL High 82-115 [facility] Comment on above: Performed By: #### L AB17 ####Cardboard Inserter: NATALIE GARCIA ([id number])[facility] (SBAB)155 [place] [address] [place] Potassium [Moles/Vol] 3.7 mmol/L Normal 3.5-5.1 [facility] Comment on above: Result Comment: [facility] potassium values may be up to 0.5 mmol/L lower than serum values. Performed By: #### L AB17 ####Cardboard Inserter: NATALIE GARCIA ([id number])[facility] (SBAB)[address] Protein [Mass/Vol] 6.5 g/dL Normal 6.4-8.3 [facility] Comment on above: Performed By: #### L AB17 ####Cardboard Inserter: NATALIE DENISETRICIA ([id number])[facility] CAMPUSJosé Miguel [place] (SBHLAB)[address] Sodium [Moles/Vol] 134 mmol/L Low 136-145 [facility] Comment on above: Performed By: #### L AB17 ####Cardboard Inserter: NATALIE JOSE ([id number])[facility]AMPUSJosé Miguel [facility] (SBHLAB)[address] Urea nitrogen [Mass/Vol] 30 mg/dL High 9-23 [facility] Comment on above: Performed By: #### L AB17 ####Cardboard Inserter: NATALIE JOSE ([id number])[facility]AMPUSJosé Miguel [facility] (SBHLAB)[address] CULTURE, CATH TIPon 06-06-20 25 CULTURE, CATH TIP [facility] Comment on above: Performed By: #### L [id number] ####Cardboard Inserter: VASHTI BAILEY ([id number])[facility] ([facility])[address] [place] [address] Laboratory - Chemistry and C hemistry - challengeon 06-06-2025 Glucose [Mass/Vol] 129 mg/dL High 70 - 100 mg/dL [facility] Glucose [Mass/Vol] 138 mg/dL High 70 - 100 mg/dL [facility] No Panel Informationon 06-06 Interpretation and review of laboratory results Abnormal Formerly N[facility] Interpretation and review of laboratory results Abnormal Former[facility] Nursing Noteon 06-06-2025 Nursing Note Normal [facility] PNEUMONIA PCR PANELon 2024 PNEUMONIA PCR PANEL Normal [facility] Comment on above: Performed By: #### L AB900, [id number] ####Cardboard Inserter: VASHTI BAILEY ([id number])[facility] ([facility])[address] [place] [address] Progress Noteon 06-06-2025 Progress Note [facility] Progress [facility] Normal [facility] Progress Note Normal [facility] Progress Note Normal [facility] RESPIRATORY CULTURE AND STAI Non 06-06-2025 RESPIRATORY CULTURE AND STAIN Normal [facility] Comment on above: Performed By: #### L AB900, [id number] ####Cardboard Inserter: VASHTI BAILEY ([id number])[facility] ([facility])[address] [place] [address] XR Chest Single viewon 06-06 [facility] [id number] 06-05-2025 [id number] Normal [facility] CBC (HEMOGRAM)on 06-05-2025 Erythrocyte distribution width (RBC) [Ratio] 19.4 % High 11.5-15.0 [facility] Comment on above: Performed By: #### L [id number] ####Cardboard Inserter: NATALIE GARCIA ([id number])[facility] (SBAB)[address] [place] [address] Hematocrit (Bld) [Volume fraction] 24.8 % Low 35.0-47.0 [facility] Comment on above: Performed By: #### L [id number] ####Cardboard Inserter: NATALIE GARCIA ([id number])[facility] (SBAB)[address] [place] [address] Hemoglobin (Bld) [Mass/Vol] 7.6 g/dL Low 11.7-16.0 [facility] Comment on above: Performed By: #### L [id number] ####Cardboard Inserter: NATALIE GARCIA ([id number])[facility] (SBHLAB)[address] [place] [address] MCH (RBC) [Entitic mass] 25.9 pg Low 26.0-34.0 [facility] Comment on above: Performed By: #### L [id number] ####Cardboard Inserter: NATALIE GARCIA ([id number])[facility] (SBHLAB)[address] [place] [address] MCHC 30.6 % Normal 30.5-36.0 [facility] Comment on above: Performed By: #### L AB294 ####Cardboard Inserter: NATALIE GARCIA ([id number])[facility]MANELI[facility] (SBHLAB)[address] MCV (RBC) [Entitic vol] 84.6 fL Normal 77.0-99.0 [facility] Comment on above: Performed By: #### L AB294 ####Cardboard Inserter: NATALIE GARCIA ([id number])[facility] CAMPUSJosé Miguel REHMANMAGNUSN (SBHLAB)[address] Platelet mean volume (Bld) [Entitic vol] 9.7 fL Normal 9.0-12.7 [facility] Comment on above: Performed By: #### L [id number] ####Cardboard Inserter: NATALIE GARCIA ([id number])[facility]AMPUSJosé Miguel REHMANELI[place] (SBHLAB)[address] Platelets (Bld) [#/Vol] 234 10*3/uL Normal 140-440 [facility] Comment on above: Performed By: #### L AB294 ####Cardboard Inserter: NATALIE GARCIA ([id number])[facility]AMPUSJosé Miguel [place] (SBHLAB)[address] RBC (Bld) [#/Vol] 2.93 10*6/uL Low 3.80-5.20 [facility] Comment on above: Performed By: #### L AB294 ####Cardboard Inserter: NATALIE GARCIA ([id number])[facility]AMPUSJosé Miguel [place] (SBHLAB)[address] WBC (Bld) [#/Vol] 5.7 10*3/uL Normal 3.6-10.7 [facility] Comment on above: Performed By: #### L AB294 ####Cardboard Inserter: NATALIE GARCIA ([id number])[facility]AMPUSJosé Miguel REHMANMAGNUSN (SBHLAB)[address] COMPREHENSIVE METABOLIC PANE Florentin 06-05-2025 Albumin [Mass/Vol] 2.7 g/dL Low 3.4-4.8 [facility] Comment on above: Performed By: #### L AB17 ####Cardboard Inserter: NATALIE GARCIA ([id number])[facility] [place] (SBHLAB)[address] ALP [Catalytic activity/Vol] 119 U/L Normal 40-150 [facility] Comment on above: Performed By: #### L AB17 ####Cardboard Inserter: NATALIE GARCIA ([id number])[facility] [place] ([facility])[address] ALT [Catalytic activity/Vol] 13 U/L Normal <30 [facility] Comment on above: Performed By: #### L AB17 ####Cardboard Inserter: NATALIE GARCIA ([id number])[facility] [place] (HLAB)[address] Anion gap [Moles/Vol] 10 mmol/L Normal 3-13 [facility] Comment on above: Performed By: #### L AB17 ####Cardboard Inserter: NATALIE GARCIA ([id number])[facility] [place] (HLAB)[address] AST [Catalytic activity/Vol] 21 U/L Normal <34 [facility] Comment on above: Performed By: #### L AB17 ####Cardboard Inserter: NATALIE GARCIA ([id number])[facility] [place] (HLAB)[address] Bilirubin [Mass/Vol] 0.7 mg/dL Normal <1.2 [facility] Comment on above: Performed By: #### L AB17 ####Cardboard Inserter: NATALIE GARCIA ([id number])[facility] [place] (HLAB)[address] Calcium [Mass/Vol] 8.9 mg/dL Normal 8.8-10.0 [facility] Comment on above: Performed By: #### L AB17 ####Cardboard Inserter: NATALIE GARCIA ([id number])[facility] [place] (SB[facility])[address] Chloride [Moles/Vol] 100 mmol/L Normal 98-107 [facility] Comment on above: Performed By: #### L AB17 ####Cardboard Inserter: NATALIE DENISETRICIA ([id number])[facility] [place] (SB[facility])[address] CO2 [Moles/Vol] 27 mmol/L Normal 23-31 [facility] Comment on above: Performed By: #### L AB17 ####Cardboard Inserter: NATALIE DENISETRICIA ([id number])[facility] (SBHLAB)[address] Creatinine [Mass/Vol] 1.79 mg/dL High 0.57-1.11 [facility] Comment on above: Performed By: #### L AB17 ####Cardboard Inserter: NATALIE DENISETRICIA ([id number])[facility] CAMPUSA TAMARREHOBOTH MCKIN[facility] SERVICESN (SBHLAB)[address] [place] [address] [place] GLOMERULAR FILTRATION RATE ML/MIN/1.73 SQ M.PREDICTED 28.9 mL/min/1.73m*2 Low >60.0 [facility] Comment on above: Result Comment: Calc ulation based on the Chronic Kidney Disease Epidemiology Collaboration (CKD-EPI) equation refit without adjustment for race Performed By: #### L AB17 ####Cardboard Inserter: NATALIE GARCIA ([id number])[facility]AMPUSJosé Miguel [place] (SBHLAB)155 [place] [address] [place] Glucose [Mass/Vol] 67 mg/dL Low 82-115 [facility] Comment on above: Performed By: #### L AB17 ####Cardboard Inserter: NATALIE GARCIA ([id number])[facility] BARBREHOBOTH MCKINLEY CHRI[facility]ALTH CARE SERVICESN (SBHLAB)[address] [place] [address] [place] Potassium [Moles/Vol] 3.9 mmol/L Normal 3.5-5.1 [facility] Comment on above: Result Comment: Plas dc potassium values may be up to 0.5 mmol/L lower than serum values. Performed By: #### L AB17 ####Cardboard Inserter: NATALIE GARCIA ([id number])[facility] [place] (SB[facility])[address] Protein [Mass/Vol] 6.7 g/dL Normal 6.4-8.3 [facility] Comment on above: Performed By: #### L AB17 ####Cardboard Inserter: NATALIE GARCIA ([id number])[facility] [place] (SB[facility])[address] Sodium [Moles/Vol] 137 mmol/L Normal 136-145 [facility] Comment on above: Performed By: #### L AB17 ####Cardboard Inserter: NATALIE GARCIA ([id number])[facility] [place] (SB[facility])[address] [place] [address] Urea nitrogen [Mass/Vol] 18 mg/dL Normal 9-23 [facility] Comment on above: Performed By: #### L AB17 ####Cardboard Inserter: NATALIE GARCIA ([id number])[facility] CAMPUSA BARBREHOBOTH MCKINLEY CHRI[facility] CARE SERVICESN (SBHLAB)[address] [place] [address] Progress Noteon 06-05-2025 Progress Note Normal [facility] Progress Note Normal [facility] Progress Note Normal [facility] Progress Note Normal [facility] [id number] 06-04-2025 [id number] Normal [facility] CBC (HEMOGRAM)on 06-04-2025 Erythrocyte distribution width (RBC) [Ratio] 19.5 % High 11.5-15.0 [facility] Comment on above: Performed By: #### L [id number] ####Cardboard Inserter: NATALIE GARCIA ([id number])[facility] [place] (SBHLAB)[address] [place] [address] Hematocrit (Bld) [Volume fraction] 23.8 % Low 35.0-47.0 [facility] Comment on above: Performed By: #### L AB294 ####Cardboard Inserter: NATALIE GARCIA ([id number])[facility]AMPUSJosé Miguel REHMANELIAS (SBHLAB)[address] Hemoglobin (Bld) [Mass/Vol] 7.4 g/dL Low 11.7-16.0 [facility] Comment on above: Performed By: #### L AB294 ####Cardboard Inserter: NATALIE GARCIA ([id number])[facility]AMPUSJosé Miguel REHMANELIAS (SBHLAB)[address] MCH (RBC) [Entitic mass] 25.7 pg Low 26.0-34.0 [facility] Comment on above: Performed By: #### L AB294 ####Cardboard Inserter: NATALIE GARCIA ([id number])[facility] CAMPUSJosé Miguel [facility]ENTERLa[facility] ([facility])[address] MCHC 31.1 % Normal 30.5-36.0 [facility] Comment on above: Performed By: #### L AB294 ####Cardboard Inserter: NATALIE GARCIA ([id number])[facility] CAMPUSJosé Miguel [facility]ITALELI[facility] (SBAB)[address] MCV (RBC) [Entitic vol] 82.6 fL Normal 77.0-99.0 [facility] Comment on above: Performed By: #### L AB294 ####Cardboard Inserter: NATALIE GARCIA ([id number])[facility]AMPUSJosé Miguel [facility]ITAL[facility] (SBAB)[address] Platelet mean volume (Bld) [Entitic vol] 9.8 fL Normal 9.0-12.7 [facility] Comment on above: Performed By: #### L [id number] ####Cardboard Inserter: NATALIE GARCIA ([id number])[facility]AMPUSJosé Miguel TAMARELIAS (SBHLAB)[address] Platelets (Bld) [#/Vol] 247 10*3/uL Normal 140-440 [facility] Comment on above: Performed By: #### L AB294 ####Cardboard Inserter: NATALIE GARCIA ([id number])[facility]USA [place] (SBHLAB)[address] RBC (Bld) [#/Vol] 2.88 10*6/uL Low 3.80-5.20 [facility] Comment on above: Performed By: #### L AB294 ####Cardboard Inserter: NATALIE GARCIA ([id number])[facility] [place] (SBHLAB)[address] WBC (Bld) [#/Vol] 6.2 10*3/uL Normal 3.6-10.7 [facility] Comment on above: Performed By: #### L AB294 ####Cardboard Inserter: NATALIE GARCIA ([id number])[facility] [place] ([facility])[address] COMPREHENSIVE METABOLIC PANE Florentin 06-04-2025 Albumin [Mass/Vol] 2.4 g/dL Low 3.4-4.8 [facility] Comment on above: Performed By: #### L AB103, LAB17 ####Cardboard Inserter: NATALIE GARCIA ([id number])[facility] [place] ([facility])[address] ALP [Catalytic activity/Vol] 130 U/L Normal 40-150 [facility] Comment on above: Performed By: #### L AB103, LAB17 ####Cardboard Inserter: NATALIE GARCIA ([id number])[facility] [place] (SB[facility])[address] ALT [Catalytic activity/Vol] 11 U/L Normal <30 [facility] Comment on above: Performed By: #### L AB103, LAB17 ####Cardboard Inserter: NATALIE GARCIA ([id number])[facility] [place] (SBHL[facility])[address] Anion gap [Moles/Vol] 11 mmol/L Normal 3-13 [facility] Comment on above: Performed By: #### L AB103, LAB17 ####Cardboard Inserter: NATALIE GARCIA ([id number])[facility] [place] (SB[facility]AB)[address] AST [Catalytic activity/Vol] 19 U/L Normal <34 [facility] Comment on above: Performed By: #### L AB103, LAB17 ####Cardboard Inserter: NATALIE GARCIA ([id number])[facility] [place] (SBHL[facility])[address] Bilirubin [Mass/Vol] 0.7 mg/dL Normal <1.2 [facility] Comment on above: Performed By: #### L AB103, LAB17 ####Cardboard Inserter: NATALIE DENISETRICIA ([id number])[facility] CAMPUSA [facility] (SBHLAB)[address] Calcium [Mass/Vol] 9.0 mg/dL Normal 8.8-10.0 [facility] Comment on above: Performed By: #### L AB103, LAB17 ####Cardboard Inserter: NATALIE GARCIA ([id number])[facility] [place] (SBHLAB)[address] Chloride [Moles/Vol] 93 mmol/L Low 98-107 [facility] Comment on above: Performed By: #### L AB103, LAB17 ####Cardboard Inserter: NATALIE GARCIA ([id number])[facility]AMP[facility] [place] (SBHLAB)[address] [place] [address] [place] CO2 [Moles/Vol] 26 mmol/L Normal 23-31 [facility] Comment on above: Performed By: #### L AB103, LAB17 ####Cardboard Inserter: NATALIE GARCIA ([id number])[facility]AMPUSA [place] (SBHLAB)[address] Creatinine [Mass/Vol] 3.51 mg/dL High 0.57-1.11 [facility] Comment on above: Performed By: #### L AB103, LAB17 ####Cardboard Inserter: NATALIE GARCIA ([id number])[facility] CAMPUSA BARBREHOBOTH MCK[facility] SERVICESN (SBHLAB)[address] [place] [address] [place] GLOMERULAR FILTRATION RATE ML/MIN/1.73 SQ M.PREDICTED 12.9 mL/min/1.73m*2 Low >60.0 [facility] Comment on above: Result Comment: Calc ulation based on the Chronic Kidney Disease Epidemiology Collaboration (CKD-EPI) equation refit without adjustment for race Performed By: #### L AB103, LAB17 ####Cardboard Inserter: NATALIE GARCIA ([id number])[facility] CAMPUSA BARBREHOBOTH MCK[facility] SERVICESN (SBHLAB)[address] Glucose [Mass/Vol] 147 mg/dL High 82-115 [facility] Comment on above: Performed By: #### L AB103, LAB17 ####Cardboard Inserter: NATALIE GARCIA ([id number])[facility] CAMPUSA BARBREHOBOTH MCK[facility] SERVICESN (SBHLAB)[address] Potassium [Moles/Vol] 3.4 mmol/L Low 3.5-5.1 [facility] Comment on above: Result Comment: [facility] potassium values may be up to 0.5 mmol/L lower than serum values. Performed By: #### L AB103, LAB17 ####Cardboard Inserter: NATALIE GARCIA ([id number])[facility] CAMPUSA BARBREHOBOTH MCK[facility] SERVICESN (SBHLAB)[address] [place] [address] [place] Protein [Mass/Vol] 6.5 g/dL Normal 6.4-8.3 [facility] Comment on above: Performed By: #### L AB103, LAB17 ####Cardboard Inserter: NATALIE GARCIA ([id number])[facility] CAMPUSA BARBREHOBOTH MCK[facility] SERVICESN (SBHLAB)[address] [place] [address] [place] Sodium [Moles/Vol] 130 mmol/L Low 136-145 [facility] Comment on above: Performed By: #### L AB103, LAB17 ####Cardboard Inserter: NATALIE GARCIA ([id number])[facility] CAMPUSJosé Miguel MONTENEGROLaurel (SBHLAB)[address] Urea nitrogen [Mass/Vol] 43 mg/dL High 9-23 [facility] Comment on above: Performed By: #### L AB103, LAB17 ####Cardboard Inserter: NATALIE GARCIA ([id number])[facility] CAMPUSJosé Miguel REHMANREHOBOTH MCKIN[facility] CH[facility]ALTH CARE SERVICESLaurel (SBHLAB)[address] Consulton 06-04-2025 Consult Normal [facility] Consult Normal [facility] MAGNESIUMon 06-04-2025 Magnesium [Mass/Vol] 2.1 mg/dL Normal 1.6-2.6 [facility] Comment on above: Result Comment: DORIAN Knight COMMENTS:Higher values can be expected in females during menses. Performed By: #### L AB103, LAB17 ####Cardboard Inserter: NATALIE GARCIA ([id number])[facility] [place] [address] Nursing Noteon 06-04-2025 Nursing Note Normal [facility] Progress Noteon 06-04-2025 Progress [facility] Progress Note Normal [facility] CBC (HEMOGRAM)on 06-03-2025 Erythrocyte distribution width (RBC) [Ratio] 19.6 % High 11.5-15.0 [facility] Comment on above: Performed By: #### L AB294 ####Cardboard Inserter: NATALIE GARCIA ([id number])[facility] CAMPUSJosé Miguel REHMANELIAS (HLAB)[address] Hematocrit (Bld) [Volume fraction] 23.3 % Low 35.0-47.0 [facility] Comment on above: Performed By: #### L AB294 ####Cardboard Inserter: NATALIE GARCIA ([id number])[facility] CAMPUSJosé Miguel RE[facility]ELIAS (SBHLAB)[address] Hemoglobin (Bld) [Mass/Vol] 7.2 g/dL Low 11.7-16.0 [facility] Comment on above: Performed By: #### L AB294 ####Cardboard Inserter: NATALIE GARCIA ([id number])[facility]AMPUSJosé Miguel REHMANELIAS (SBHLAB)[address] MCH (RBC) [Entitic mass] 25.8 pg Low 26.0-34.0 [facility] Comment on above: Performed By: #### L [id number] ####Cardboard Inserter: NATALIE GARCIA ([id number])[facility] CAMPUSJosé Miguel REHMANREHOBOTH MCKINLEY CHRISTIAN HEALTH CARE SERVICESLaurel (SBHLAB)[address] MCHC 30.9 % Normal 30.5-36.0 [facility] Comment on above: Performed By: #### L [id number] ####Cardboard Inserter: NATALIE CALVERTCER ([id number])[facility] CAMPUSJosé Miguel REHMANREHOBOTH MCKINLEY CHRISTIAN HEALTH CARE SERVICESLaurel (SBHLAB)[address] MCV (RBC) [Entitic vol] 83.5 fL Normal 77.0-99.0 [facility] Comment on above: Performed By: #### L [id number] ####Cardboard Inserter: NATALIE GARCIA ([id number])[facility] CAMPUSJosé Miguel GARY (SBHLAB)[address] Platelet mean volume (Bld) [Entitic vol] 9.7 fL Normal 9.0-12.7 [facility] Comment on above: Performed By: #### L AB294 ####Cardboard Inserter: NATALIE GARCIA ([id number])[facility] (SBHLAB)155 [place] [address] [place] Platelets (Bld) [#/Vol] 229 10*3/uL Normal 140-440 [facility] Comment on above: Performed By: #### L AB294 ####Cardboard Inserter: NATALIE GARCIA ([id number])[facility] (SBHLAB)[address] RBC (Bld) [#/Vol] 2.79 10*6/uL Low 3.80-5.20 [facility] Comment on above: Performed By: #### L AB294 ####Cardboard Inserter: NATALIE DENISETRICIA ([id number])[facility]AMPUSA [place] (SBHLAB)[address] WBC (Bld) [#/Vol] 6.1 10*3/uL Normal 3.6-10.7 [facility] Comment on above: Performed By: #### L AB294 ####Cardboard Inserter: NATALIE GARCIA ([id number])[facility]AMPUSA [place] (SBHLAB)[address] COMPREHENSIVE METABOLIC PANE Florentin 06-03-2025 Albumin [Mass/Vol] 2.4 g/dL Low 3.4-4.8 [facility] Comment on above: Performed By: #### L AB103, LAB17 ####Cardboard Inserter: NATALIE GARCIA ([id number])[facility]AMPUSA [place] (SBHLAB)[address] ALP [Catalytic activity/Vol] 130 U/L Normal 40-150 [facility] Comment on above: Performed By: #### L AB103, LAB17 ####Cardboard Inserter: NATALIE GARCIA ([id number])[facility] CAMPUSA BARBREHOBOTH MCKIN[facility] SERVICESN (SBHLAB)[address] ALT [Catalytic activity/Vol] 11 U/L Normal <30 [facility] Comment on above: Performed By: #### L AB103, LAB17 ####Cardboard Inserter: NATALIE GARCIA ([id number])[facility]AMPUSA [place] (SBHLAB)[address] Anion gap [Moles/Vol] 9 mmol/L Normal 3-13 [facility] Comment on above: Performed By: #### L AB103, LAB17 ####Cardboard Inserter: NATALIE GARCIA ([id number])[facility]AMPUSA [place] (SBHLAB)[address] AST [Catalytic activity/Vol] 27 U/L Normal <34 [facility] Comment on above: Performed By: #### L AB103, LAB17 ####Cardboard Inserter: NATALIE GARCIA ([id number])[facility]AMPUSA [place] (SBHLAB)[address] Bilirubin [Mass/Vol] 0.8 mg/dL Normal <1.2 [facility] Comment on above: Performed By: #### L AB103, LAB17 ####Cardboard Inserter: NATALIE GARCIA ([id number])[facility]AMPUSA [place] (SBHLAB)[address] Calcium [Mass/Vol] 8.7 mg/dL Low 8.8-10.0 [facility] Comment on above: Performed By: #### L AB103, LAB17 ####Cardboard Inserter: NATALIE GARCIA ([id number])[facility]AMPUSA [place] (SBHLAB)[address] Chloride [Moles/Vol] 95 mmol/L Low 98-107 [facility] Comment on above: Performed By: #### L AB103, LAB17 ####Cardboard Inserter: NATALIE GARCIA ([id number])[facility]AMPUSA [place] (SBHLAB)[address] CO2 [Moles/Vol] 27 mmol/L Normal 23-31 [facility] Comment on above: Performed By: #### L AB103, LAB17 ####Cardboard Inserter: NATALIE GARCIA ([id number])[facility]AMPUSA [place] (SBHLAB)[address] Creatinine [Mass/Vol] 2.39 mg/dL High 0.57-1.11 [facility] Comment on above: Performed By: #### L AB103, LAB17 ####Cardboard Inserter: NATALIE GARCIA ([id number])[facility]AMPUSA [place] (SBHLAB)[address] GLOMERULAR FILTRATION RATE ML/MIN/1.73 SQ M.PREDICTED 20.4 mL/min/1.73m*2 Low >60.0 [facility] Comment on above: Result Comment: Calc ulation based on the Chronic Kidney Disease Epidemiology Collaboration (CKD-EPI) equation refit without adjustment for race Performed By: #### L 103, LAB17 ####Cardboard Inserter: NATALIE GARCIA ([id number])[facility]AMPUSA [place] (SBHLAB)[address] Glucose [Mass/Vol] 145 mg/dL High 82-115 [facility] Comment on above: Performed By: #### L AB103, LAB17 ####Cardboard Inserter: NATALIE GARCIA ([id number])[facility] CAMPUSA BARBREHOBOTH MCK[facility] SERVICESN (SBHLAB)[address] Potassium [Moles/Vol] 3.3 mmol/L Low 3.5-5.1 [facility] Comment on above: Result Comment: [facility] potassium values may be up to 0.5 mmol/L lower than serum values. Performed By: #### L MASHA, LAB17 ####Cardboard Inserter: NATALIE GARCIA ([id number])[facility]AMPUSA [place] (SBHLAB)[address] Protein [Mass/Vol] 6.4 g/dL Normal 6.4-8.3 [facility] Comment on above: Performed By: #### L AB103, LAB17 ####Cardboard Inserter: NATALIE GARCIA ([id number])[facility]AMPUSA [place] (SBHLAB)[address] [place] [address] [place] Sodium [Moles/Vol] 131 mmol/L Low 136-145 [facility] Comment on above: Performed By: #### L AB103, LAB17 ####Cardboard Inserter: NATALIE GARCIA ([id number])[facility] CAMPUSA [place] (SBHLAB)[address] [place] [address] [place] Urea nitrogen [Mass/Vol] 31 mg/dL High 9-23 [facility] Comment on above: Performed By: #### L AB103, LAB17 ####Cardboard Inserter: NATALIE GARCIA ([id number])[facility]AMPUSA [place] (SBHLAB)[address] IRON AND TIBCon 06-03-2025 IRON BINDING CAPACITY 184 ug/dL Low 250-450 [facility] Comment on above: Performed By: #### L AB829 ####Cardboard Inserter: NATALIE GARCIA ([id number])[facility] CAMPUSJosé Miguel REHMANREHOBOTH MCKINLEY CHRISTIAN HEALTH CARE SERVICESLaurel (SBHLAB)[address] IRON SATURATION 21.2 % Normal 20.0-50.0 [facility] Comment on above: Performed By: #### L AB829 ####Cardboard Inserter: NATALIE GRACIA ([id number])[facility] (SBHLAB)[address] IRON, TOTAL 39 ug/dL Low 50-170 [facility] Comment on above: Performed By: #### L AB829 ####Cardboard Inserter: NATALIE GARCIA ([id number])[facility] (SBHLAB)[address] MAGNESIUMon 06-03-2025 Magnesium [Mass/Vol] 2.0 mg/dL Normal 1.6-2.6 [facility] Comment on above: Result Comment: DORIAN Knight COMMENTS:Higher values can be expected in females during menses. Performed By: #### L AB103, LAB17 ####Cardboard Inserter: NATALIE GARCIA ([id number])[facility] (SBHLAB)[address] Progress Noteon 06-03-2025 Progress Note Normal [facility] Progress Note Normal [facility] C. DIFFICILE BY PCR WITH REF ALYSSA TO EIAon 06-02-2025 C. DIFFICILE BY PCR WITH REFLEX TO EIA Normal [facility] Comment on above: Performed By: #### L AB257, [id number], [id number] ####Cardboard Inserter: VASHTI BAILEY ([id number])[facility] (SACLAB)[address] [place] [address] CBC (HEMOGRAM)on 06-02-2025 Erythrocyte distribution width (RBC) [Ratio] 19.5 % High 11.5-15.0 [facility] Comment on above: Performed By: #### L AB294 ####Cardboard Inserter: NATALIE DENISETRICIA ([id number])[facility] CAMPUSJosé Miguel REHMANREHOBOTH MCKINLEY CHRISTIAN HEALTH CARE SERVICESLaurel (SBHLAB)[address] Hematocrit (Bld) [Volume fraction] 23.7 % Low 35.0-47.0 [facility] Comment on above: Performed By: #### L AB294 ####Cardboard Inserter: NATALIE DENISETRICIA ([id number])[facility] CAMPUSJosé Miguel REHMANREHOBOTH MCKINLEY CHRISTIAN HEALTH CARE SERVICESLaurel (SBAB)[address] Hemoglobin (Bld) [Mass/Vol] 7.4 g/dL Low 11.7-16.0 [facility] Comment on above: Performed By: #### L AB294 ####Cardboard Inserter: NATALIE DENISETRICIA ([id number])[facility] CAMPUSJosé Miguel RE[facility]MANLITTLE [facility]AD[facility]ICAL [facility] (SBAB)[address] MCH (RBC) [Entitic mass] 26.0 pg Normal 26.0-34.0 [facility] Comment on above: Performed By: #### L AB294 ####Cardboard Inserter: NATALIE DENISETRICIA ([id number])[facility] CAMPUSJosé Miguel GARY ([facility]ITALAB)[address] MCHC 31.2 % Normal 30.5-36.0 [facility] Comment on above: Performed By: #### L AB294 ####Cardboard Inserter: NATALIE GARCIA ([id number])[facility] CAMPUSJosé Miguel REHMANREHOBOTH MCK[facility] HEALTH CARE SERVICESLaurel (SBHLAB)[address] MCV (RBC) [Entitic vol] 83.2 fL Normal 77.0-99.0 [facility] Comment on above: Performed By: #### L AB294 ####Cardboard Inserter: NATALIE DENISETRICIA ([id number])[facility] CAMPUSJosé Miguel GARY (SBAB)[address] Platelet mean volume (Bld) [Entitic vol] 10.0 fL Normal 9.0-12.7 [facility] Comment on above: Performed By: #### L AB294 ####Cardboard Inserter: NATALIE GARCIA ([id number])[facility]AMPUSA [place] (SBHLAB)[address] Platelets (Bld) [#/Vol] 231 10*3/uL Normal 140-440 [facility] Comment on above: Performed By: #### L AB294 ####Cardboard Inserter: NATALIE GARCIA ([id number])[facility]AMPUSA [place] (SBHLAB)[address] RBC (Bld) [#/Vol] 2.85 10*6/uL Low 3.80-5.20 [facility] Comment on above: Performed By: #### L AB294 ####Cardboard Inserter: NATALIE GARCIA ([id number])[facility]AMPUSA [place] (SBHLAB)[address] WBC (Bld) [#/Vol] 5.1 10*3/uL Normal 3.6-10.7 [facility] Comment on above: Performed By: #### L AB294 ####Cardboard Inserter: NATALIE GARCIA ([id number])[facility] CAMPUSJosé Miguel REHMANREHOBOTH MCKIN[facility] CHRI[facility]ALTH CARE SERVICESN (SBHLAB)[address] COMPREHENSIVE METABOLIC PANE Florentin 06-02-2025 Albumin [Mass/Vol] 2.6 g/dL Low 3.4-4.8 [facility] Comment on above: Performed By: #### L AB17, [id number] ####Cardboard Inserter: NATALIE GARCIA ([id number])[facility]AMPUSA [place] (SBHLAB)[address] ALP [Catalytic activity/Vol] 129 U/L Normal 40-150 [facility] Comment on above: Performed By: #### L AB17, [id number] ####Cardboard Inserter: NATALIE GARCIA ([id number])[facility]AMPUSA [place] (SBHLAB)[address] ALT [Catalytic activity/Vol] 10 U/L Normal <30 [facility] Comment on above: Performed By: #### L AB17, [id number] ####Cardboard Inserter: NATALIE GARCIA ([id number])[facility]AMPUSA [place] (SBHLAB)[address] Anion gap [Moles/Vol] 11 mmol/L Normal 3-13 [facility] Comment on above: Performed By: #### L AB17, [id number] ####Cardboard Inserter: NATALIE GARCIA ([id number])[facility] CAMPUSA [facility] (SBHLAB)[address] AST [Catalytic activity/Vol] 23 U/L Normal <34 [facility] Comment on above: Performed By: #### L AB17, [id number] ####Cardboard Inserter: NATALIE GARCIA ([id number])[facility]AMPUSA [place] (SBHLAB)[address] Bilirubin [Mass/Vol] 1.1 mg/dL Normal <1.2 [facility] Comment on above: Performed By: #### L AB17, [id number] ####Cardboard Inserter: NATALIE GARCIA ([id number])[facility] CAMPUSA [facility] (SBHLAB)[address] Calcium [Mass/Vol] 8.8 mg/dL Normal 8.8-10.0 [facility] Comment on above: Performed By: #### L AB17, [id number] ####Cardboard Inserter: NATALIE GARCIA ([id number])[facility]AMPUSA [place] (SBHLAB)[address] [place] [address] [place] Chloride [Moles/Vol] 98 mmol/L Normal 98-107 [facility] Comment on above: Performed By: #### L AB17, [id number] ####Cardboard Inserter: NATALIE GARCIA ([id number])[facility]AMPUSA [place] (SBHLAB)[address] [place] [address] [place] CO2 [Moles/Vol] 28 mmol/L Normal 23-31 [facility] Comment on above: Performed By: #### L AB17, [id number] ####Cardboard Inserter: NATALEI GARCIA ([id number])[facility] CAMPUSJosé Miguel RE[facility]MANLITTLE [facility] (SBHLAB)[address] Creatinine [Mass/Vol] 1.57 mg/dL High 0.57-1.11 [facility] Comment on above: Performed By: #### L AB17, [id number] ####Cardboard Inserter: NATALIE GARCIA ([id number])[facility] CAMPUSJosé Miguel REHMANREHOBOTH MCKINLEY CHRI[facility]ALTH CARE SERVICESN (SBHLAB)[address] GLOMERULAR FILTRATION RATE ML/MIN/1.73 SQ M.PREDICTED 33.8 mL/min/1.73m*2 Low >60.0 [facility] Comment on above: Result Comment: Calc ulation based on the Chronic Kidney Disease Epidemiology Collaboration (CKD-EPI) equation refit without adjustment for race Performed By: #### L AB17, [id number] ####Cardboard Inserter: NATALIE GARCIA ([id number])[facility] CAMPUSJosé Miguel GARY (SBHLAB)[address] Glucose [Mass/Vol] 94 mg/dL Normal 82-115 [facility] Comment on above: Performed By: #### L AB17, [id number] ####Cardboard Inserter: NATALIE GARCIA ([id number])[facility] ([facility])[address] Potassium [Moles/Vol] 3.1 mmol/L Low 3.5-5.1 [facility] Comment on above: Result Comment: [facility] potassium values may be up to 0.5 mmol/L lower than serum values. Performed By: #### L AB17, [id number] ####Cardboard Inserter: NATALIE GARCIA ([id number])[facility] ([facility])[address] Protein [Mass/Vol] 6.5 g/dL Normal 6.4-8.3 [facility] Comment on above: Performed By: #### L AB17, [id number] ####Cardboard Inserter: NATALIE GARCIA ([id number])[facility] CAMPUSJosé Miguel REHMANREHOBOTH MCKINLEY CHRI[facility] HEALTH CARE SERVICESLaurel (SBHLAB)[address] Sodium [Moles/Vol] 137 mmol/L Normal 136-145 [facility] Comment on above: Performed By: #### L AB17, [id number] ####Cardboard Inserter: NATALIE CALVERTCER ([id number])[facility] CAMPUSJosé Miguel GARY (SBHLAB)[address] Urea nitrogen [Mass/Vol] 20 mg/dL Normal 9-23 [facility] Comment on above: Performed By: #### L AB17, [id number] ####Cardboard Inserter: NATALIE DENISETRICIA ([id number])[facility] (SBHLAB)[address] Consulton 06-02-2025 Consult Normal [facility] FERRITINon 06-02-2025 Ferritin [Mass/Vol] 613 ng/mL High 5-204 [facility] Comment on above: Result Comment: DORIAN Knight COMMENTS:Ferritin levels below 10 ng/mL have been reported as indicative of iron deficiency anemia. Performed By: #### L AB69, LAB68, LAB67 ####Cardboard Inserter: NATALIE DENISETRICIA ([id number])[facility] (SBHLAB)[address] FOLATEon 06-02-2025 FOLATE RESULT 12.6 ng/mL Normal 7.0-31.4 [facility] Comment on above: Performed By: #### L AB69, LAB68, LAB67 ####Cardboard Inserter: NATALIE GARCIA ([id number])[facility] (SBHLAB)[address] GASTROINTESTINAL PCR PANELon 06-02-2025 GASTROINTESTINAL PCR PANEL Normal [facility] Comment on above: Performed By: #### L AB257, [id number], [id number] ####Cardboard Inserter: VASHTI BAILEY ([id number])[facility] (SACLAB)[address] [place] [address] HEPATITIS B SURFACE ANTIBODY on 06-02-2025 HEPATITIS B VIRUS SURFACE AB <8.0 Normal [facility] Comment on above: Result Comment: ORDE R COMMENTS:Interpretation:<8.0 Non-Reactive8.0-11.9 Equivocal>= 12.0 Ab DetectedNote: If an equivocal result is interpreted, an antibody status is unable to be determined. Collect new specimen if clinically indicated. Performed By: #### L AB472, [id number] ####Cardboard Inserter: VASHTI BAILEY ([id number])[facility])[address] [place] [address] HEPATITIS B SURFACE ANTIGENo n 06-02-2025 HEPATITIS B VIRUS SURFACE AG Not detected Normal Not Detected [facility] Comment on above: Performed By: #### L AB472, [id number] ####Cardboard Inserter: VASHTI BAILEY ([id number])[facility] ([facility])[address] [place] [address] LAB ONLY - C DIFF EIAon LAB ONLY - C DIFF EIA C DIFFICILE TOXINS A+B, EIA (A) Reference Positive Negative ORDER COMMENTS: (A) C. Difficile infection is likely present. Correlate with other clinical data. Methodology: Enzyme Immunoassay Normal [facility] Comment on above: Performed By: #### L AB257, [id number], [id number] ####Cardboard Inserter: VASHTI BAILEY ([id number])[facility] ([facility])[address] [place] [address] MAGNESIUMon 06-02-2025 Magnesium [Mass/Vol] 2.0 mg/dL Normal 1.6-2.6 [facility] Comment on above: Result Comment: ORDE R COMMENTS:Higher values can be expected in females during menses. Performed By: #### L AB17, [id number] ####Cardboard Inserter: NATALIE GARCIA ([id number])[facility] ([facility])[address] [place] [address] Progress Noteon 06-02-2025 Progress Note [facility] Progress [facility] Progress Note Normal [facility] VITAMIN B12on 06-02-2025 Cobalamin (Vitamin B12) [Mass/Vol] 1032 pg/mL High 213-816 [facility] Comment on above: Performed By: #### L AB69, LAB68, LAB67 ####Cardboard Inserter: NATALIE GARCIA ([id number])[facility]AMP[facility] [place] (SBHLAB)[address] BASIC METABOLIC PANELon Anion gap [Moles/Vol] 11 mmol/L Normal 3-13 [facility] Comment on above: Performed By: #### L AB103, [id number], LAB15, LAB20 ####Cardboard Inserter: NATALIE GARCIA ([id number])[facility] [place] (SBHLAB)[address] Calcium [Mass/Vol] 9.4 mg/dL Normal 8.8-10.0 [facility] Comment on above: Performed By: #### L AB103, [id number], LAB15, LAB20 ####Cardboard Inserter: NATALIE GARCIA ([id number])[facility] [place] (SBHLAB)[address] Chloride [Moles/Vol] 93 mmol/L Low 98-107 [facility] Comment on above: Performed By: #### L AB103, [id number], LAB15, LAB20 ####Cardboard Inserter: NATALIE GARCIA ([id number])[facility]AMP[facility] [place] (SBHLAB)[address] CO2 [Moles/Vol] 30 mmol/L Normal 23-31 [facility] Comment on above: Performed By: #### L AB103, [id number], LAB15, LAB20 ####Cardboard Inserter: NATALIE GARCIA ([id number])[facility] [place] (SBHLAB)[address] Creatinine [Mass/Vol] 2.34 mg/dL High 0.57-1.11 [facility] Comment on above: Performed By: #### Perez AB103, [id number], LAB15, LAB20 ####Cardboard Inserter: NATALIE GARCIA ([id number])[facility] ([facility])[address] GLOMERULAR FILTRATION RATE ML/MIN/1.73 SQ M.PREDICTED 21.0 mL/min/1.73m*2 Low >60.0 [facility] Comment on above: Result Comment: Calc ulation based on the Chronic Kidney Disease Epidemiology Collaboration (CKD-EPI) equation refit without adjustment for race Performed By: #### L AB103, [id number], LAB15, LAB20 ####Cardboard Inserter: NATALIE GARCIA ([id number])[facility] ([facility])[address] Glucose [Mass/Vol] 174 mg/dL High 82-115 [facility] Comment on above: Performed By: #### Perez FLANAGAN, [id number], LAB15, LAB20 ####Cardboard Inserter: NATALIE GARCIA ([id number])[facility] ([facility])[address] Potassium [Moles/Vol] 3.5 mmol/L Normal 3.5-5.1 [facility] Comment on above: Result Comment: [facility] potassium values may be up to 0.5 mmol/L lower than serum values. Performed By: #### L AB103, [id number], LAB15, LAB20 ####Cardboard Inserter: NATALIE GARCIA ([id number])[facility] (HLAB)[address] [place] [address] [place] Sodium [Moles/Vol] 134 mmol/L Low 136-145 [facility] Comment on above: Performed By: #### L AB103, [id number], LAB15, LAB20 ####Cardboard Inserter: NATALIE GARCIA ([id number])[facility] (HLAB)[address] Urea nitrogen [Mass/Vol] 41 mg/dL High 9-23 [facility] Comment on above: Performed By: #### L AB103, [id number], LAB15, LAB20 ####Cardboard Inserter: NATALIE GARCIA ([id number])[facility] ([facility])[address] BLOOD TYPE AND SCREEN GELon 06-01-2025 ABO GROUPING A Normal [facility] Comment on above: Performed By: #### L AB276 ####Cardboard Inserter: NATALIE GARCIA ([id number])[facility] ([facility])[address] RH TYPE IN BLOOD Positive Normal [facility] Comment on above: Performed By: #### L AB276 ####Cardboard Inserter: NATALIE GARCIA ([id number])[facility] ([facility])[address] [place] [address] CBC WITH AUTO DIFFERENTIALon 06-01-2025 Basophils (Bld) [#/Vol] 0.0 10*3/uL Normal 0.0-0.2 [facility] Comment on above: Performed By: #### L [id number] ####Cardboard Inserter: NATALIE GARCIA ([id number])[facility] ([facility])[address] [place] [address] Basophils/100 WBC (Bld) 0.7 % Normal 0.0-2.0 [facility] Comment on above: Performed By: #### L [id number] ####Cardboard Inserter: NATALIE GARCIA ([id number])[facility])[address] Eosinophils (Bld) [#/Vol] 0.2 10*3/uL Normal 0.0-0.5 [facility] Comment on above: Performed By: #### L [id number] ####Cardboard Inserter: NATALIE GARCIA ([id number])[facility])[address] [place] [address] [place] Eosinophils/100 WBC (Bld) 2.9 % Normal 0.0-6.0 [facility] Comment on above: Performed By: #### L [id number] ####Cardboard Inserter: NATALIE GARCIA ([id number])[facility])[address] Erythrocyte distribution width (RBC) [Ratio] 20.6 % High 11.5-15.0 [facility] Comment on above: Performed By: #### L [id number] ####Cardboard Inserter: NATALIE DENISETRICIA ([id number])[facility] Hematocrit (Bld) [Volume fraction] 23.0 % Low 35.0-47.0 [facility] Comment on above: Performed By: #### L [id number] ####Cardboard Inserter: NATALIE DENISETRICIA ([id number])[facility] ([facility])[address] [place] [address] Hemoglobin (Bld) [Mass/Vol] 7.1 g/dL Low 11.7-16.0 [facility] Comment on above: Performed By: #### L [id number] ####Cardboard Inserter: NATALIE DENISETRICIA ([id number])[facility] ([facility])[address] [place] [address] IMMATURE GRANS % 0.4 % Normal 0.0-2.0 [facility] Comment on above: Performed By: #### L [id number] ####Cardboard Inserter: NATALIE GARCIA ([id number])[facility] BARBREHOBOTH MCK[facility] SERVICESN ([facility])[address] IMMATURE GRANS ABSOLUTE 0.0 10*3/uL Normal <0.1 [facility] Comment on above: Performed By: #### L [id number] ####Cardboard Inserter: NATALIE DENISETRICIA ([id number])[facility] CAMPUSA [facility]ERN ([facility])[address] Lymphocytes (Bld) [#/Vol] 0.9 10*3/uL Low 1.0-4.3 [facility] Comment on above: Performed By: #### L [id number] ####Cardboard Inserter: NATALIE GARCIA ([id number])[facility] CAMPUSJosé Miguel MONTENEGROLaurel (SBHLAB)[address] Lymphocytes/100 WBC (Bld) 15.7 % Normal 15.0-45.0 [facility] Comment on above: Performed By: #### L [id number] ####Cardboard Inserter: NATALIE GARCIA ([id number])[facility] CAMPUSJosé Miguel REHMANREHOBOTH MCKINLEY CHRISTIAN HEALTH CARE SERVICESN (SBHLAB)[address] MCH (RBC) [Entitic mass] 25.4 pg Low 26.0-34.0 [facility] Comment on above: Performed By: #### L [id number] ####Cardboard Inserter: NATALIE DENISETRICIA ([id number])[facility] CAMPUSJosé Miguel [facility] CENTERLaurel (SBHLAB)[address] [place] [address] MCHC 30.9 % Normal 30.5-36.0 [facility] Comment on above: Performed By: #### L [id number] ####Cardboard Inserter: NATALIE GARCIA ([id number])[facility] CAMPUSJosé Miguel REHMANREHOBOTH MCKINLEY CHRISTIAN HEALTH CARE SERVICESLaurel (SBHLAB)[address] [place] [address] MCV (RBC) [Entitic vol] 82.1 fL Normal 77.0-99.0 [facility] Comment on above: Performed By: #### L [id number] ####Cardboard Inserter: NATALIE GARCIA ([id number])[facility] CAMPUSJosé Miguel BARBREHOBOTH MCKIN[facility] CH[facility] CARE SERVICESN (SBHLAB)[address] [place] [address] Monocytes (Bld) [#/Vol] 0.6 10*3/uL Normal 0.0-0.9 [facility] Comment on above: Performed By: #### L [id number] ####Cardboard Inserter: NATALIE GARCIA ([id number])[facility] CAMPUSJosé Miguel REHMANREHOBOTH MCKINLEY CHRIST[facility] HEALTH CARE SERVICESLaurel (SBHLAB)[address] [place] [address] Monocytes/100 WBC (Bld) 11.4 % Normal 5.0-13.0 [facility] Comment on above: Performed By: #### L [id number] ####Cardboard Inserter: NATALIE GARCIA ([id number])[facility] CAMPUSA [place] (SBHLAB)[address] NEUTROPHILS ABSOLUTE 3.8 10*3/uL Normal 1.8-7.5 [facility] Comment on above: Performed By: #### L [id number] ####Cardboard Inserter: NATALIE GARCIA ([id number])[facility] CAMPUSA [place] (SBHLAB)[address] Neutrophils/100 WBC (Bld) 68.9 % Normal 38.0-82.0 [facility] Comment on above: Performed By: #### L [id number] ####Cardboard Inserter: NATALIE GARCIA ([id number])[facility] CAMPUSA [facility]ERN ([facility]AB)[address] NRBC 0.0 /100 WBCs Normal 0.0-2.0 [facility] Comment on above: Performed By: #### L [id number] ####Cardboard Inserter: NATALIE GARCIA ([id number])[facility] CAMPUSA [place] (SBHLAB)[address] Platelet mean volume (Bld) [Entitic vol] 9.9 fL Normal 9.0-12.7 [facility] Comment on above: Performed By: #### L [id number] ####Cardboard Inserter: NATALEI GARCIA ([id number])[facility] CAMPUSA [place] ([facility]HLAB)[address] Platelets (Bld) [#/Vol] 244 10*3/uL Normal 140-440 [facility] Comment on above: Performed By: #### L [id number] ####Cardboard Inserter: NATALIE GARCIA ([id number])[facility] CAMPUSA [place] (SBHLAB)[address] RBC (Bld) [#/Vol] 2.80 10*6/uL Low 3.80-5.20 [facility] Comment on above: Performed By: #### L [id number] ####Cardboard Inserter: NATALIE GARCIA ([id number])[facility] (SBHLAB)[address] [place] [address] WBC (Bld) [#/Vol] 5.5 10*3/uL Normal 3.6-10.7 [facility] Comment on above: Performed By: #### L [id number] ####Cardboard Inserter: NATALIE DENISETRICIA ([id number])[facility] (SBHLAB)[address] [place] [address] CBC-Complete Blood Cnt No Di ffon 06-01-2025 Erythrocyte distribution width (RBC) [Ratio] 20.5 % High 11.6-14.6 [facility] Comment on above: Performed By: #### L 100.0500, L100.4500 ####[facility] [address] [place], [address] Hematocrit (Bld) [Volume fraction] 21.6 % Low 37-47 [facility] Comment on above: Performed By: #### L 100.0500, L100.4500 ####[facility] [address] [place], [address] Hemoglobin (Bld) [Mass/Vol] 6.5 g/dL Low 12.0-15.0 [facility] Comment on above: Performed By: #### L 100.0500, L100.4500 ####[facility] [address] [place], [address] MCH (RBC) [Entitic mass] 25.1 pg Low 27.0-32.0 [facility] Comment on above: Performed By: #### L 100.0500, L100.4500 ####[facility] [address] [place], [address] MCHC (RBC) [Mass/Vol] 30.1 g/dL Low 32-36 [facility] Comment on above: Performed By: #### L 100.0500, L100.4500 ####[facility] [address] [place], [address] MCV (RBC) [Entitic vol] 83.4 fL Normal 81-99 [facility] Comment on above: Performed By: #### L 100.0500, L100.4500 ####[facility] [address] [place], [address] Platelet mean volume (Bld) [Entitic vol] 10.1 fL Normal 6.2-12.0 [facility] Comment on above: Performed By: #### L 100.0500, L100.4500 ####[facility] [address] [place], [address] Platelets (Bld) [#/Vol] 215 10*3/uL Normal 150-450 [facility] Comment on above: Performed By: #### L 100.0500, L100.4500 ####[facility] [address] [place], [address] RBC (Bld) [#/Vol] 2.59 10*6/uL Low 4.2-5.4 [facility] Comment on above: Performed By: #### L 100.0500, L100.4500 ####[facility] [address] [place], [address] RDW SD 63.2 fl High 35.1-43.9 [facility] Comment on above: Performed By: #### L 100.0500, L100.4500 ####[facility] [address] [place], [address] WBC (Bld) [#/Vol] 4.9 10*3/uL Normal 4.4-11.0 [facility] Comment on above: Performed By: #### L 100.0500, L100.4500 ####[facility] [address] [place], [address] Consulton 06-01-2025 Consult Normal [facility] Differential Commenton 06-01 SMEAR COMMENT SCANNED Normal [facility] Comment on above: Result Comment: 2+ A NISOCYTOSIS Performed By: #### L 100.0500, L100.4500 ####[facility] [address] [place], [address] ECG 12-LEADon 06-01-2025 ECG 12-LEAD IMPRESSION: Sinus rhythm Atrial premature complexes Left bundle branch block No previous available for comparison Electronically Signed On 06-01-2025 13:44:04 EDT by Omid Orona Normal [facility] ED Provider Noteon ED Provider Note Normal [facility] HEMOGLOBIN AND HEMATOCRIT, B LOODon 06-01-2025 Hematocrit (Bld) [Volume fraction] 25.2 % Low 35.0-47.0 [facility] Comment on above: Order Comment: Recom mend 1 hour post transfusion Performed By: #### L [id number] ####Cardboard Inserter: NATALIE GARCIA ([id number])[facility] CAMPUSJosé Miguel [facility] HOSPITALELIAS (SBHLAB)[address] [place] [address] Hemoglobin (Bld) [Mass/Vol] 7.8 g/dL Low 11.7-16.0 [facility] Comment on above: Order Comment: Recom mend 1 hour post transfusion Performed By: #### L [id number] ####Cardboard Inserter: NATALIE GARCIA ([id number])[facility] CAMPUSJosé Miguel [facility]OSPITALELIAS (SBHLAB)[address] [place] [address] HEPATIC FUNCTION PANELon Albumin [Mass/Vol] 2.2 g/dL Low 3.4-4.8 [facility] Comment on above: Performed By: #### L AB103, [id number], LAB15, LAB20 ####Cardboard Inserter: NATALIE GARCIA ([id number])[facility] CAMPUSJosé Miguel [facility] HOSPITALELIAS ([facility]HLAB)[address] [place] [address] ALP [Catalytic activity/Vol] 148 U/L Normal 40-150 [facility] Comment on above: Performed By: #### L AB103, [id number], LAB15, LAB20 ####Cardboard Inserter: NATALIE DENISETRICIA ([id number])[facility] (SBHLAB)[address] ALT [Catalytic activity/Vol] 15 U/L Normal <30 [facility] Comment on above: Performed By: #### L AB103, [id number], LAB15, LAB20 ####Cardboard Inserter: NATALIE SIMONGRISELTRICIA ([id number])[facility] ([facility]AB)[address] AST [Catalytic activity/Vol] 21 U/L Normal <34 [facility] Comment on above: Performed By: #### L AB103, [id number], LAB15, LAB20 ####Cardboard Inserter: NATALIE GARCIA ([id number])[facility] ([facility]AB)[address] Bilirubin [Mass/Vol] 0.5 mg/dL Normal <1.2 [facility] Comment on above: Performed By: #### L AB103, [id number], LAB15, LAB20 ####Cardboard Inserter: NATALIE GARCIA ([id number])[facility] ([facility])[address] Bilirubin.indirect [Mass/Vol] 0.2 mg/dL Normal <0.5 [facility] Comment on above: Performed By: #### L AB103, [id number], LAB15, LAB20 ####Cardboard Inserter: NATALIE GARCIA ([id number])[facility] ([facility])[address] Protein [Mass/Vol] 6.5 g/dL Normal 6.4-8.3 [facility] Comment on above: Result Comment: Seru m protein values are higher than plasma values. Samples from recumbent persons are lower by up to 0.5 g/dL as compared to ambulatory persons. After 60 years values are lower by up to 0.2 g/dL. Performed By: #### L AB103, [id number], LAB15, LAB20 ####Cardboard Inserter: NATALIE GARCIA ([id number])[facility] ([facility])[address] HIGH SENSITIVITY TROPONIN, S ERIAL BASELINEon 06-01-2025 TROPONIN HS SERIAL BASELINE 12 ng/L Normal <=14 [facility] Comment on above: Result Comment: In i ndividuals presenting with symptoms > 2h, a baseline troponin <= 5 ng/L suggests acutecardiac injury is unlikely and further serial testing is generally not indicated. Performed By: #### L AB103, [id number], LAB15, LAB20 ####Cardboard Inserter: NATALIE GARCIA ([id number])[facility] ([facility])[address] [place] [address] HIGH SENSITIVITY TROPONIN, S ERIAL, SECOND TESTon 06-01-2025 2H TROPONIN HS (SERIAL 2ND TROPONIN) 13 ng/L Normal <=14 [facility] Comment on above: Result Comment: Risi ng or falling troponin delta below 2 ng/L as compared to baseline value suggests thatacute cardiac injury is unlikely. Performed By: #### L [id number] ####Cardboard Inserter: NATALIE GARCIA ([id number])[facility] ([facility])[address] [place] [address] MAGNESIUMon 06-01-2025 Magnesium [Mass/Vol] 2.1 mg/dL Normal 1.6-2.6 [facility] Comment on above: Result Comment: ORDE R COMMENTS:Higher values can be expected in females during menses. Performed By: #### L AB103, [id number], LAB15, LAB20 ####Cardboard Inserter: NATALIE GARCIA ([id number])[facility] ([facility])[address] Nursing Noteon 06-01-2025 Nursing Note Normal [facility] Ova and Parasites 8623on OP Normal [facility] Comment on above: Performed By: #### M 600.5000 ####[facility] [address] [place], [address] .GFRon 04-18-2025 Estimated Glomerular Filtration Rate 12 ml/min/1.73sqm Normal [facility] Comment on above: Result Comment: Stages [...] C BC, GFR, MORPH, RFP, DIFF #### [address] [address] BMPon 04-18-2025 BUN/Creatinine Ratio 13.5 ratio Normal 10.0-22.0 [facility] Comment on above: Performed By: #### C BC, GFR, MORPH, RFP, DIFF #### [address] [address] Calcium [Mass/Vol] 10.0 mg/dL Normal 8.7-10.4 [facility] Comment on above: Performed By: #### C BC, GFR, MORPH, RFP, DIFF #### [address] [address] Chloride [Moles/Vol] 96 mmol/L Low 98-110 [facility] Comment on above: Performed By: #### C BC, GFR, MORPH, RFP, DIFF #### [address] [address] CO2 [Moles/Vol] 30 mmol/L Normal 22-32 [facility] Comment on above: Performed By: #### C BC, GFR, MORPH, RFP, DIFF #### [address] [address] Creatinine [Mass/Vol] 3.64 mg/dL High 0.50-1.20 [facility] Comment on above: Result Comment: Test ing performed on [employer] analyzer using enzymatic creatinine methodology. Performed By: #### C BC, GFR, MORPH, RFP, DIFF #### [address] [address] Electrolyte Balance 11.0 mEq/L Normal 4.0-15.0 [facility] Comment on above: Performed By: #### C BC, GFR, MORPH, RFP, DIFF #### [address] [address] Glucose [Mass/Vol] 147 mg/dL High 82-115 [facility] Comment on above: Performed By: #### C BC, GFR, MORPH, RFP, DIFF #### [address] [address] Potassium [Moles/Vol] 4.4 mmol/L Normal 3.5-5.0 [facility] Comment on above: Performed By: #### C BC, GFR, MORPH, RFP, DIFF #### [address] [address] Sodium [Moles/Vol] 137 mmol/L Normal 136-145 [facility] Comment on above: Performed By: #### C BC, GFR, MORPH, RFP, DIFF #### [address] [address] Urea nitrogen [Mass/Vol] 49.0 mg/dL High 8.0-22.0 [facility] Comment on above: Performed By: #### C BC, GFR, MORPH, RFP, DIFF #### [address] [address] .Auto Diffon 04-16-2025 Basophil, Absolute 0.2 10 3/mcL Normal 0.0-0.3 [facility] Comment on above: Performed By: #### M G, RFP, BMP, GFR #### [address] [address] Basophils/100 WBC (Bld) 2.3 % Normal 0.0-2.5 [facility] Comment on above: Performed By: #### M G, RFP, BMP, GFR #### [address] [address] Eosinophil, Absolute 0.2 10 3/mcL Normal 0.0-0.7 [facility] Comment on above: Performed By: #### M G, RFP, BMP, GFR #### [address] [address] Eosinophils/100 WBC (Bld) 2.1 % Normal 0.0-6.0 [facility] Comment on above: Performed By: #### M G, RFP, BMP, GFR #### [address] [address] Lymphocyte, Absolute 1.3 10 3/mcL Normal 0.9-4.3 [facility] Comment on above: Performed By: #### M G, RFP, BMP, GFR #### [address] [address] Lymphocytes/100 WBC (Bld) 17.1 % Low 20.0-40.0 [facility] Comment on above: Performed By: #### M G, RFP, BMP, GFR #### [address] [address] Monocyte, Absolute 0.8 10 3/mcL Normal 0.1-1.4 [facility] Comment on above: Performed By: #### M G, RFP, BMP, GFR #### [address] [address] Monocytes/100 WBC (Bld) 10.7 % Normal 2.0-13.[address] [facility] Comment on above: Performed By: #### M G, RFP, BMP, GFR #### [address] [address] Neutrophils/100 WBC (Bld) 67.8 % Normal 50.0-75.0 [facility] Comment on above: Performed By: #### M G, RFP, BMP, GFR #### [address] [address] .GFRon 04-16-2025 Estimated Glomerular Filtration Rate 9 ml/min/1.73sqm [facility] Comment on above: Result Comment: [...] #### M G, RFP, BMP, GFR #### [place] [address] .Morphon 04-16-2025 Anisocytosis Ql (Bld) 2+ Normal [facility] Comment on above: Performed By: #### M G, RFP, BMP, GFR #### [place] [address] Microcytosis 2+ [facility] Comment on above: Performed By: #### M G, RFP, BMP, GFR #### [place] [address] Ovalocytes 1+ [facility] Comment on above: Performed By: #### M G, RFP, BMP, GFR #### [place] [address] Platelet Estimate Normal [facility] Comment on above: Performed By: #### M G, RFP, BMP, GFR #### [place] [address] Poik 1+ [facility] Comment on above: Performed By: #### M G, RFP, BMP, GFR #### [place] [address] Polychrom 1+ [facility] Comment on above: Performed By: #### M G, RFP, BMP, GFR #### [place] [address] .NEUABSon 04-16-2025 Neutrophil, Absolute 5.2 10 3/mcL Normal 2.3-8.1 [facility] Comment on above: Performed By: #### Iain Mckeon, RFP, BMP, GFR #### [address] [address] BMPon 04-16-2025 BUN/Creatinine Ratio 16.9 ratio Normal 10.0-22.0 [facility] Comment on above: Performed By: #### Iain Mckeon, RFP, BMP, GFR #### [address] [address] Calcium [Mass/Vol] 9.9 mg/dL Normal 8.7-10.4 [facility] Comment on above: Performed By: #### Iain Mckeon, RFP, BMP, GFR #### [address] [address] Chloride [Moles/Vol] 97 mmol/L Low 98-110 [facility] Comment on above: Performed By: #### Iain Mckeon, RFP, BMP, GFR #### [address] [address] CO2 [Moles/Vol] 29 mmol/L Normal 22-32 [facility] Comment on above: Performed By: #### Iain Mckeon, RFP, BMP, GFR #### [address] [address] Creatinine [Mass/Vol] 4.92 mg/dL High 0.50-1.20 [facility] Comment on above: Result Comment: Test ing performed on [employer] analyzer using enzymatic creatinine methodology. Performed By: #### M G, RFP, BMP, GFR #### [address] [address] Electrolyte Balance 10.0 mEq/L Normal 4.0-15.0 [facility] Comment on above: Performed By: #### M G, RFP, BMP, GFR #### [address] [address] Glucose [Mass/Vol] 154 mg/dL High 82-115 [facility] Comment on above: Performed By: #### Iain G, RFP, BMP, GFR #### [address] [place], [place] [address] Potassium [Moles/Vol] 4.4 mmol/L Normal 3.5-5.0 [facility] Comment on above: Performed By: #### M G, RFP, BMP, GFR #### [facility] [address] [place] [address] Sodium [Moles/Vol] 136 mmol/L Normal 136-145 [facility] Comment on above: Performed By: #### M G, RFP, BMP, GFR #### [address] [address] Urea nitrogen [Mass/Vol] 83.0 mg/dL High 8.0-22.0 [facility] Comment on above: Performed By: #### M G, RFP, BMP, GFR #### [address] [address] CBCon 04-16-2025 Platelet 286 10 3/mcL Normal 150-450 [facility] Comment on above: Performed By: #### M G, RFP, BMP, GFR #### [address] [address] Platelet mean volume (Bld) [Entitic vol] 7.3 fL Normal 6.6-10.5 [facility] Comment on above: Performed By: #### M G, RFP, BMP, GFR #### [address] [address] Erythrocyte distribution width (RBC) [Ratio] 23.8 % High 11.5-15.5 [facility] Comment on above: Performed By: #### M G, RFP, BMP, GFR #### [address] [address] Hematocrit (Bld) [Volume fraction] 28.0 % Low 34.0-46.0 [facility] Comment on above: Performed By: #### M G, RFP, BMP, GFR #### [address] [address] Hgb 8.9 G/dL Low 12.0-16.0 [facility] Comment on above: Performed By: #### M G, RFP, BMP, GFR #### [place] [address] [place] [address] MCH (RBC) [Entitic mass] 23.3 pg Low 27.0-33.0 [facility] Comment on above: Performed By: #### M G, RFP, BMP, GFR #### [facility] [address] [place] [address] MCHC 31.9 G/dL Low 32.0-36.0 [facility] Comment on above: Performed By: #### M G, RFP, BMP, GFR #### [facility] [address] [place] [address] MCV (RBC) [Entitic vol] 73.2 fL Low 80.0-99.[address] [facility] Comment on above: Performed By: #### M G, RFP, BMP, GFR #### [address] [address] RBC 3.83 10 6/mcL Low 4.10-5.30 [facility] Comment on above: Performed By: #### M G, RFP, BMP, GFR #### [address] [address] WBC 7.6 10 3/mcL Normal 4.5-10.8 [facility] Comment on above: Performed By: #### M G, RFP, BMP, GFR #### [address] [address] XR CHEST 1 VIEWon 04-16-2025 XR CHEST [...] Date: 04/16/2025 8:28:15 AM Ordering Provider: ELKE MARQUEZ [facility] MAIN .GFRon 04-13-2025 Estimated Glomerular Filtration Rate 12 ml/min/1.73sqm [facility] MAIN Comment on above: Result Comment: [...] C BC, GFR, MORPH, RFP, DIFF #### [address] [address] .Manual Diffon 04-13-2025 Bands 1.0 % Normal 0.0-5.0 [facility] Comment on above: Performed By: #### C BC, GFR, MORPH, RFP, DIFF #### [address] [address] Basophil %, Manual 0.0 % Normal 0.0-2.5 [facility] Comment on above: Performed By: #### C BC, GFR, MORPH, RFP, DIFF #### [address] [address] Basophil, Abs Manual 0.0 10 3/mcL Normal 0.0-0.3 [facility] MA[facility] Comment on above: Performed By: #### C BC, GFR, MORPH, RFP, DIFF #### [address] [address] Eosinophil %, Manual 1.0 % Normal 0.0-6.0 [facility] MA[facility] Comment on above: Performed By: #### C BC, GFR, MORPH, RFP, DIFF #### [address] [address] Eosinophil, Abs Manual 0.1 10 3/mcL Normal 0.0-0.7 [facility] Comment on above: Performed By: #### C BC, GFR, MORPH, RFP, DIFF #### [address] [address] Lymphocyte %, Manual 8.0 % Low 20.0-40.0 [facility] MA[facility] Comment on above: Performed By: #### C BC, GFR, MORPH, RFP, DIFF #### [address] [address] Lymphocyte, Abs Manual 0.6 10 3/mcL Low 0.9-4.3 [facility] Comment on above: Performed By: #### C BC, GFR, MORPH, RFP, DIFF #### [address] [address] Monocyte %, Manual 9.0 % Normal 2.0-13.0 [facility] Comment on above: Performed By: #### C BC, GFR, MORPH, RFP, DIFF #### [address] [address] Monocyte, Abs Manual 0.7 10 3/mcL Normal 0.1-1.4 [facility] MA[facility] Comment on above: Performed By: #### C BC, GFR, MORPH, RFP, DIFF #### [address] [address] Neutrophil %, Manual 81.0 % High 50.0-75.0 [facility] Comment on above: Performed By: #### C BC, GFR, MORPH, RFP, DIFF #### [address] [address] Neutrophil, Abs Manual 6.3 10 3/mcL Normal 2.3-8.1 [facility] MAIN Comment on above: Performed By: #### C BC, GFR, MORPH, RFP, DIFF #### [address] [address] Nucleated RBC 0.0 /100 W[facility] MAIN Comment on above: Performed By: #### C BC, GFR, MORPH, RFP, DIFF #### [place] [address] .Morphon 04-13-2025 Anisocytosis Ql (Bld) 1+ Normal [facility] MAIN Comment on above: Performed By: #### C BC, GFR, MORPH, RFP, DIFF #### [place] [address] Hypochrom 1+ Normal [facility] MAIN Comment on above: Performed By: #### C BC, GFR, MORPH, RFP, DIFF #### [place] [address] Large Platelets Few [facility] MAIN Comment on above: Performed By: #### C BC, GFR, MORPH, RFP, DIFF #### [place] [address] Microcytosis 1+ [facility] MAIN Comment on above: Performed By: #### C BC, GFR, MORPH, RFP, DIFF #### [place] [address] Ovalocytes 1+ [facility] MAIN Comment on above: Performed By: #### C BC, GFR, MORPH, RFP, DIFF #### [place] [address] Platelet Estimate Normal [facility] MAIN Comment on above: Performed By: #### C BC, GFR, MORPH, RFP, DIFF #### [place] [address] Poik 1+ [facility] MAIN Comment on above: Performed By: #### C BC, GFR, MORPH, RFP, DIFF #### [place] [address] Polychrom 1+ [facility] MAIN Comment on above: Performed By: #### C BC, GFR, MORPH, RFP, DIFF #### [place] [address] Target Cell 1+ [facility] MAIN Comment on above: Performed By: #### C BC, GFR, MORPH, RFP, DIFF #### [address] [address] BMPon 04-13-2025 BUN/Creatinine Ratio 15.1 ratio Normal 10.0-22.0 [facility] MAIN Comment on above: Performed By: #### C BC, GFR, MORPH, RFP, DIFF #### [address] [address] Calcium [Mass/Vol] 9.6 mg/dL Normal 8.7-10.4 [facility] MAIN Comment on above: Performed By: #### C BC, GFR, MORPH, RFP, DIFF #### [address] [address] Chloride [Moles/Vol] 98 mmol/L Normal 98-110 [facility] MAIN Comment on above: Performed By: #### C BC, GFR, MORPH, RFP, DIFF #### [address] [address] CO2 [Moles/Vol] 30 mmol/L Normal 22-32 [facility] MAIN Comment on above: Performed By: #### C BC, GFR, MORPH, RFP, DIFF #### [address] [address] Creatinine [Mass/Vol] 3.78 mg/dL High 0.50-1.20 [facility] MAIN Comment on above: Result Comment: Test ing performed on [employer] analyzer using enzymatic creatinine methodology. Performed By: #### C BC, GFR, MORPH, RFP, DIFF #### [address] [address] Electrolyte Balance 11.0 mEq/L Normal 4.0-15.0 [facility] MAIN Comment on above: Performed By: #### C BC, GFR, MORPH, RFP, DIFF #### [address] [address] Glucose [Mass/Vol] 134 mg/dL High 82-115 [facility] MAIN Comment on above: Performed By: #### C BC, GFR, MORPH, RFP, DIFF #### [address] [address] Potassium [Moles/Vol] 4.0 mmol/L Normal 3.5-5.0 [facility] MAIN Comment on above: Performed By: #### C BC, GFR, MORPH, RFP, DIFF #### [place] [address] Sodium [Moles/Vol] 139 mmol/L Normal 136-145 [facility] MAIN Comment on above: Performed By: #### C BC, GFR, MORPH, RFP, DIFF #### [place] [address] Urea nitrogen [Mass/Vol] 57.0 mg/dL High 8.0-22.0 [facility] MAIN Comment on above: Performed By: #### C BC, GFR, MORPH, RFP, DIFF #### [place] [address] CBCon 04-13-2025 Erythrocyte distribution width (RBC) [Ratio] 24.5 % High 11.5-15.5 [facility] MAIN Comment on above: Performed By: #### C BC, GFR, MORPH, RFP, DIFF #### [place] [address] Hematocrit (Bld) [Volume fraction] 28.8 % Low 34.0-46.0 [facility] MAIN Comment on above: Performed By: #### C BC, GFR, MORPH, RFP, DIFF #### [place] [address] Hgb 9.3 G/dL Low 12.0-16.0 [facility] MAIN Comment on above: Performed By: #### C BC, GFR, MORPH, RFP, DIFF #### [place] [address] MCH (RBC) [Entitic mass] 23.9 pg Low 27.0-33.0 [facility] MAIN Comment on above: Performed By: #### C BC, GFR, MORPH, RFP, DIFF #### [place] [address] MCHC 32.1 G/dL Normal 32.0-36.0 [facility] MAIN Comment on above: Performed By: #### C BC, GFR, MORPH, RFP, DIFF #### [place] [address] MCV (RBC) [Entitic vol] 74.3 fL Low 80.0-99.0 [facility] MAIN Comment on above: Performed By: #### C BC, GFR, MORPH, RFP, DIFF #### [place] [address] Platelet 272 10 3/mcL Normal 150-450 [facility] MAIN Comment on above: Performed By: #### C BC, GFR, MORPH, RFP, DIFF #### [place] [address] Platelet mean volume (Bld) [Entitic vol] 7.6 fL Normal 6.6-10.5 [facility] MAIN Comment on above: Performed By: #### C BC, GFR, MORPH, RFP, DIFF #### [place] [address] RBC 3.87 10 6/mcL Low 4.10-5.30 [facility] MAIN Comment on above: Performed By: #### C BC, GFR, MORPH, RFP, DIFF #### [place] [address] WBC 7.8 10 3/mcL Normal 4.5-10.8 [facility] MAIN Comment on above: Performed By: #### C BC, GFR, MORPH, RFP, DIFF #### [place] [address] HBSABon 04-13-2025 Hep B Surf Ab 3.1 mIU/mL Low >=10.0 [facility] MAIN Comment on above: Result Comment: 0 [...] C BC, GFR, MORPH, RFP, DIFF #### [place] [address] HBSAGon 04-13-2025 Hep B Surf Ag Non-Reactive Normal Non-Reactive [facility] MAIN Comment on above: Performed By: #### C BC, GFR, MORPH, RFP, DIFF #### [address] [address] HBcTon 04-13-2025 Hepatitis B Core Total Non-Reactive Normal Non-Reactiv e [facility] MAIN Comment on above: Performed By: #### M G, RFP, BMP, GFR #### [place] [address] Hepatitis B Core Total Interp See Interp Normal [facility] MAIN Comment on above: Result Comment: Clinical Interpretation: Samples with a value of <0.50 are considered nonreactive for total antibodies to Hepatitis B Core Antigen. Performed By: #### M G, RFP, BMP, GFR #### [place] [address] PHOSon 04-13-2025 Phosphate [Mass/Vol] 3.1 mg/dL Normal 2.4-5.1 [facility] MAIN Comment on above: Performed By: #### C BC, GFR, MORPH, RFP, DIFF #### [place] [address] .GFRon 04-10-2025 Estimated Glomerular Filtration Rate 19 ml/min/1.73sqm Normal [facility] MAIN Comment on above: Result Comment: Stages [...] C BC, GFR, MORPH, RFP, DIFF #### [place] [address] BMPon 04-10-2025 BUN/Creatinine Ratio 11.9 ratio Normal 10.0-22.0 [facility] MAIN Comment on above: Performed By: #### C BC, GFR, MORPH, RFP, DIFF #### [address] [address] Calcium [Mass/Vol] 9.0 mg/dL Normal 8.7-10.4 [facility] MAIN Comment on above: Performed By: #### C BC, GFR, MORPH, RFP, DIFF #### [address] [address] Chloride [Moles/Vol] 98 mmol/L Normal 98-110 [facility] MAIN Comment on above: Performed By: #### C BC, GFR, MORPH, RFP, DIFF #### [address] [address] CO2 [Moles/Vol] 31 mmol/L Normal 22-32 [facility] MAIN Comment on above: Performed By: #### C BC, GFR, MORPH, RFP, DIFF #### [address] [address] Creatinine [Mass/Vol] 2.52 mg/dL High 0.50-1.20 [facility] MAIN Comment on above: Result Comment: Test ing performed on [employer] analyzer using enzymatic creatinine methodology. Performed By: #### C BC, GFR, MORPH, RFP, DIFF #### [address] [address] Electrolyte Balance 9.0 mEq/L Normal 4.0-15.0 [facility] MAIN Comment on above: Performed By: #### C BC, GFR, MORPH, RFP, DIFF #### [address] [address] Glucose [Mass/Vol] 153 mg/dL High 82-115 [facility] MAIN Comment on above: Performed By: #### C BC, GFR, MORPH, RFP, DIFF #### [address] [address] Potassium [Moles/Vol] 4.2 mmol/L Normal 3.5-5.0 [facility] MAIN Comment on above: Performed By: #### C BC, GFR, MORPH, RFP, DIFF #### [address] [address] Sodium [Moles/Vol] 138 mmol/L Normal 136-145 [facility] MAIN Comment on above: Performed By: #### C BC, GFR, MORPH, RFP, DIFF #### [address] [address] Urea nitrogen [Mass/Vol] 30.0 mg/dL High 8.0-22.0 [facility] MAIN Comment on above: Performed By: #### C BC, GFR, MORPH, RFP, DIFF #### [address] [address] TROPHSon 04-10-2025 High Sensitivity Troponin I 17 ng/L Normal 0-34 [facility] MAIN Comment on above: Result Comment: High Sensitive Troponin I Reference Ranges: Female: 0-34 ng/L Male: 0-54 ng/L Testing performed on [email or web address] IM analyzer using direct chemiluminescent technology. Performed By: #### C BC, GFR, MORPH, RFP, DIFF #### [address] [address] .Auto Diffon 04-09-2025 Basophil, Absolute 0.1 10 3/mcL Normal 0.0-0.3 [facility] MAIN Comment on above: Performed By: #### M G, RFP, BMP, GFR #### [address] [address] Basophils/100 WBC (Bld) 0.9 % Normal 0.0-2.[address] [facility] MAIN Comment on above: Performed By: #### M G, RFP, BMP, GFR #### [address] [address] Eosinophil, Absolute 0.2 10 3/mcL Normal 0.0-0.7 [facility] MAIN Comment on above: Performed By: #### M G, RFP, BMP, GFR #### [address] [address] Eosinophils/100 WBC (Bld) 3.2 % Normal 0.0-6.0 [facility] MAIN Comment on above: Performed By: #### M G, RFP, BMP, GFR #### [address] [address] Lymphocyte, Absolute 0.6 10 3/mcL Low 0.9-4.3 [facility] MAIN Comment on above: Performed By: #### M G, RFP, BMP, GFR #### [facility] [address] [place] [address] Lymphocytes/100 WBC (Bld) 11.4 % Low 20.0-40.0 [facility] MAIN Comment on above: Performed By: #### M G, RFP, BMP, GFR #### [facility] [address] [place] [address] Monocyte, Absolute 0.9 10 3/mcL Normal 0.1-1.4 [facility] MAIN Comment on above: Performed By: #### Iain Mckeon, RFP, BMP, GFR #### [address] [address] Monocytes/100 WBC (Bld) 16.2 % High 2.0-13.[address] [facility] MAIN Comment on above: Performed By: #### Iain G, RFP, BMP, GFR #### [address] [address] Neutrophils/100 WBC (Bld) 68.3 % Normal 50.0-75.0 [facility] MAIN Comment on above: Performed By: #### Iain Mckeon, RFP, BMP, GFR #### [address] [address] .GFRon 04-09-2025 Estimated Glomerular Filtration Rate 11 ml/min/1.73sqm Normal [facility] MAIN Comment on above: Result Comment: Stages [...] #### M G, RFP, BMP, GFR #### [place] [address] .Morphon 04-09-2025 Anisocytosis Ql (Bld) 2+ Normal [facility] MAIN Comment on above: Performed By: #### M G, RFP, BMP, GFR #### [place] [address] Microcytosis 1+ Normal [facility] MAIN Comment on above: Performed By: #### M G, RFP, BMP, GFR #### [place] [address] Ovalocytes 1+ Normal [facility] MAIN Comment on above: Performed By: #### M G, RFP, BMP, GFR #### [place] [address] Platelet Estimate Normal [facility] MAIN Comment on above: Performed By: #### M G, RFP, BMP, GFR #### [place] [address] Poik 1+ Normal [facility] MAIN Comment on above: Performed By: #### M G, RFP, BMP, GFR #### [place] [address] .NEUABSon 04-09-2025 Neutrophil, Absolute 3.9 10 3/mcL Normal 2.3-8.1 [facility] MAIN Comment on above: Performed By: #### M G, RFP, BMP, GFR #### [place] [address] CBCon 04-09-2025 Erythrocyte distribution width (RBC) [Ratio] 25.5 % High 11.5-15.5 [facility] MAIN Comment on above: Performed By: #### M G, RFP, BMP, GFR #### [place] [address] Hematocrit (Bld) [Volume fraction] 27.0 % Low 34.0-46.0 [facility] MAIN Comment on above: Performed By: #### M G, RFP, BMP, GFR #### [place] [address] Hgb 8.5 G/dL Low 12.0-16.0 [facility] MAIN Comment on above: Performed By: #### M G, RFP, BMP, GFR #### [place] [address] MCH (RBC) [Entitic mass] 23.7 pg Low 27.0-33.0 [facility] MAIN Comment on above: Performed By: #### M G, RFP, BMP, GFR #### [place] [address] MCHC 31.6 G/dL Low 32.0-36.0 [facility] MAIN Comment on above: Performed By: #### M G, RFP, BMP, GFR #### [place] [address] MCV (RBC) [Entitic vol] 75.1 fL Low 80.0-99.[address] [facility] MAIN Comment on above: Performed By: #### M G, RFP, BMP, GFR #### [place] [address] Platelet 261 10 3/mcL Normal 150-450 [facility] MAIN Comment on above: Performed By: #### M G, RFP, BMP, GFR #### [place] [address] Platelet mean volume (Bld) [Entitic vol] 7.3 fL Normal 6.6-10.5 [facility] MAIN Comment on above: Performed By: #### M G, RFP, BMP, GFR #### [place] [address] RBC 3.60 10 6/mcL Low 4.10-5.30 [facility] MAIN Comment on above: Performed By: #### M G, RFP, BMP, GFR #### [place] [address] WBC 5.7 10 3/mcL Normal 4.5-10.8 [facility] MAIN Comment on above: Performed By: #### M G, RFP, BMP, GFR #### [place] [address] RFPon 04-09-2025 Albumin Level 2.6 G/dL Low 3.2-4.8 [facility] MAIN Comment on above: Performed By: #### M G, RFP, BMP, GFR #### [address] [address] BUN/Creatinine Ratio 15.0 ratio Normal 10.0-22.0 [facility] MAIN Comment on above: Performed By: #### M G, RFP, BMP, GFR #### [address] [address] Calcium [Mass/Vol] 9.3 mg/dL Normal 8.7-10.4 [facility] MAIN Comment on above: Performed By: #### M G, RFP, BMP, GFR #### [address] [address] Chloride [Moles/Vol] 95 mmol/L Low 98-110 [facility] MAIN Comment on above: Performed By: #### M G, RFP, BMP, GFR #### [address] [address] CO2 [Moles/Vol] 28 mmol/L Normal 22-32 [facility] MAIN Comment on above: Performed By: #### M G, RFP, BMP, GFR #### [address] [address] Creatinine [Mass/Vol] 4.07 mg/dL High 0.50-1.20 [facility] MAIN Comment on above: Result Comment: Test ing performed on [employer] analyzer using enzymatic creatinine methodology. Performed By: #### M G, RFP, BMP, GFR #### [address] [address] Electrolyte Balance 15.0 mEq/L Normal 4.0-15.0 [facility] MAIN Comment on above: Performed By: #### M G, RFP, BMP, GFR #### [address] [address] Glucose [Mass/Vol] 155 mg/dL High 82-115 [facility] MAIN Comment on above: Performed By: #### M G, RFP, BMP, GFR #### [address] [address] Phosphate [Mass/Vol] 4.9 mg/dL Normal 2.4-5.1 [facility] MAIN Comment on above: Performed By: #### M G, RFP, BMP, GFR #### [address] [address] Potassium [Moles/Vol] 4.5 mmol/L Normal 3.5-5.0 [facility] MAIN Comment on above: Performed By: #### M G, RFP, BMP, GFR #### [address] [address] Sodium [Moles/Vol] 138 mmol/L Normal 136-145 [facility] MAIN Comment on above: Performed By: #### M G, RFP, BMP, GFR #### [address] [address] Urea nitrogen [Mass/Vol] 61.0 mg/dL High 8.0-22.0 [facility] MAIN Comment on above: Performed By: #### M G, RFP, BMP, GFR #### [address] [address] .Auto Diffon 04-06-2025 Basophil, Absolute 0.0 10 3/mcL Normal 0.0-0.3 [facility] MAIN Comment on above: Performed By: #### C BC, GFR, MORPH, RFP, DIFF #### [address] [address] Basophils/100 WBC (Bld) 0.8 % Normal 0.0-2.[address] [facility] MAIN Comment on above: Performed By: #### C BC, GFR, MORPH, RFP, DIFF #### [address] [address] Eosinophil, Absolute 0.2 10 3/mcL Normal 0.0-0.7 [facility] MAIN Comment on above: Performed By: #### C BC, GFR, MORPH, RFP, DIFF #### [address] [address] Eosinophils/100 WBC (Bld) 3.1 % Normal 0.0-6.0 [facility] MAIN Comment on above: Performed By: #### C BC, GFR, MORPH, RFP, DIFF #### [address] [address] Lymphocyte, Absolute 0.7 10 3/mcL Low 0.9-4.3 [facility] MAIN Comment on above: Performed By: #### C BC, GFR, MORPH, RFP, DIFF #### [address] [address] Lymphocytes/100 WBC (Bld) 13.8 % Low 20.0-40.0 [facility] MAIN Comment on above: Performed By: #### C BC, GFR, MORPH, RFP, DIFF #### [address] [address] Monocyte, Absolute 0.7 10 3/mcL Normal 0.1-1.4 [facility] MAIN Comment on above: Performed By: #### C BC, GFR, MORPH, RFP, DIFF #### [address] [address] Monocytes/100 WBC (Bld) 14.1 % High 2.0-13.[address] [facility] MAIN Comment on above: Performed By: #### C BC, GFR, MORPH, RFP, DIFF #### [address] [address] Neutrophils/100 WBC (Bld) 68.2 % Normal 50.0-75.0 [facility] MAIN Comment on above: Performed By: #### C BC, GFR, MORPH, RFP, DIFF #### [address] [address] .GFRon 04-06-2025 Estimated Glomerular Filtration Rate 15 ml/min/1.73sqm Normal [facility] MAIN Comment on above: Result Comment: Stages [...] C BC, GFR, MORPH, RFP, DIFF #### [place] [address] .Morphon 04-06-2025 Anisocytosis Ql (Bld) 2+ Normal [facility] MAIN Comment on above: Performed By: #### C BC, GFR, MORPH, RFP, DIFF #### [place] [address] Microcytosis 2+ Normal [facility] MAIN Comment on above: Performed By: #### C BC, GFR, MORPH, RFP, DIFF #### [place] [address] Ovalocytes 1+ Normal [facility] MAIN Comment on above: Performed By: #### C BC, GFR, MORPH, RFP, DIFF #### [place] [address] Platelet Estimate Normal [facility] MAIN Comment on above: Performed By: #### C BC, GFR, MORPH, RFP, DIFF #### [place] [address] Poik 1+ Normal [facility] MAIN Comment on above: Performed By: #### C BC, GFR, MORPH, RFP, DIFF #### [place] [address] Polychrom 1+ [facility] MAIN Comment on above: Performed By: #### C BC, GFR, MORPH, RFP, DIFF #### [place] [address] .NEUABSon 04-06-2025 Neutrophil, Absolute 3.6 10 3/mcL Normal 2.3-8.1 [facility] MAIN Comment on above: Performed By: #### C BC, GFR, MORPH, RFP, DIFF #### [place] [address] CBCon 04-06-2025 Erythrocyte distribution width (RBC) [Ratio] 26.5 % High 11.5-15.5 [facility] MAIN Comment on above: Performed By: #### C BC, GFR, MORPH, RFP, DIFF #### [place] [address] Hematocrit (Bld) [Volume fraction] 25.5 % Low 34.0-46.0 [facility] MAIN Comment on above: Performed By: #### C BC, GFR, MORPH, RFP, DIFF #### [place] [address] Hgb 8.0 G/dL Low 12.0-16.0 [facility] MAIN Comment on above: Performed By: #### C BC, GFR, MORPH, RFP, DIFF #### [place] [address] MCH (RBC) [Entitic mass] 23.8 pg Low 27.0-33.0 [facility] MAIN Comment on above: Performed By: #### C BC, GFR, MORPH, RFP, DIFF #### [place] [address] MCHC 31.3 G/dL Low 32.0-36.0 [facility] MAIN Comment on above: Performed By: #### C BC, GFR, MORPH, RFP, DIFF #### [place] [address] MCV (RBC) [Entitic vol] 75.8 fL Low 80.0-99.[address] [facility] MAIN Comment on above: Performed By: #### C BC, GFR, MORPH, RFP, DIFF #### [place] [address] Platelet 218 10 3/mcL Normal 150-450 [facility] MAIN Comment on above: Performed By: #### C BC, GFR, MORPH, RFP, DIFF #### [place] [address] Platelet mean volume (Bld) [Entitic vol] 7.4 fL Normal 6.6-10.5 [facility] MAIN Comment on above: Performed By: #### C BC, GFR, MORPH, RFP, DIFF #### [place] [address] RBC 3.36 10 6/mcL Low 4.10-5.30 [facility] MAIN Comment on above: Performed By: #### C BC, GFR, MORPH, RFP, DIFF #### [place] [address] WBC 5.3 10 3/mcL Normal 4.5-10.8 [facility] MAIN Comment on above: Performed By: #### C BC, GFR, MORPH, RFP, DIFF #### [address] [address] RFPon 04-06-2025 Albumin Level 2.4 G/dL Low 3.2-4.8 [facility] MAIN Comment on above: Performed By: #### C BC, GFR, MORPH, RFP, DIFF #### [place] [address] BUN/Creatinine Ratio 12.8 ratio Normal 10.0-22.0 [facility] MAIN Comment on above: Performed By: #### C BC, GFR, MORPH, RFP, DIFF #### [place] [address] Calcium [Mass/Vol] 9.1 mg/dL Normal 8.7-10.4 [facility] MAIN Comment on above: Performed By: #### C BC, GFR, MORPH, RFP, DIFF #### [place] [address] Chloride [Moles/Vol] 97 mmol/L Low 98-110 [facility] MAIN Comment on above: Performed By: #### C BC, GFR, MORPH, RFP, DIFF #### [place] [address] CO2 [Moles/Vol] 27 mmol/L Normal 22-32 [facility] MAIN Comment on above: Performed By: #### C BC, GFR, MORPH, RFP, DIFF #### [place] [address] Creatinine [Mass/Vol] 3.04 mg/dL High 0.50-1.20 [facility] MAIN Comment on above: Result Comment: Test ing performed on [employer] analyzer using enzymatic creatinine methodology. Performed By: #### C BC, GFR, MORPH, RFP, DIFF #### [place] [id number] Electrolyte Balance 13.0 mEq/L Normal 4.0-15.0 [facility] MAIN Comment on above: Performed By: #### C BC, GFR, MORPH, RFP, DIFF #### [address] [address] Glucose [Mass/Vol] 140 mg/dL High 82-115 [facility] MAIN Comment on above: Performed By: #### C BC, GFR, MORPH, RFP, DIFF #### [address] [address] Phosphate [Mass/Vol] 5.6 mg/dL High 2.4-5.1 [facility] MAIN Comment on above: Performed By: #### C BC, GFR, MORPH, RFP, DIFF #### [address] [address] Potassium [Moles/Vol] 4.3 mmol/L Normal 3.5-5.0 [facility] MAIN Comment on above: Performed By: #### C BC, GFR, MORPH, RFP, DIFF #### [address] [address] Sodium [Moles/Vol] 137 mmol/L Normal 136-145 [facility] MAIN Comment on above: Performed By: #### C BC, GFR, MORPH, RFP, DIFF #### [address] [address] Urea nitrogen [Mass/Vol] 39.0 mg/dL High 8.0-22.0 [facility] MAIN Comment on above: Performed By: #### C BC, GFR, MORPH, RFP, DIFF #### [address] [address] XR CHEST 1 VIEWon 04-05-2025 XR CHEST [...] 04/05/2025 11:06:53 AM Ordering Provider: YANY SALDANA [facility] MAIN .GFRon 04-04-2025 Estimated Glomerular Filtration Rate 14 ml/min/1.73sqm [facility] MAIN Comment on above: Result Comment: [...] C BC, GFR, MORPH, RFP, DIFF #### [address] [address] RFPon 04-04-2025 Albumin Level 2.2 G/dL Low 3.2-4.8 [facility] MAIN Comment on above: Performed By: #### C BC, GFR, MORPH, RFP, DIFF #### [address] [address] BUN/Creatinine Ratio 16.4 ratio Normal 10.0-22.0 [facility] MAIN Comment on above: Performed By: #### C BC, GFR, MORPH, RFP, DIFF #### [address] [address] Calcium [Mass/Vol] 8.8 mg/dL Normal 8.7-10.4 [facility] MAIN Comment on above: Performed By: #### C BC, GFR, MORPH, RFP, DIFF #### [address] [address] Chloride [Moles/Vol] 97 mmol/L Low 98-110 [facility] Comment on above: Performed By: #### C BC, GFR, MORPH, RFP, DIFF #### [address] [address] CO2 [Moles/Vol] 26 mmol/L Normal 22-32 [facility] Comment on above: Performed By: #### C BC, GFR, MORPH, RFP, DIFF #### [address] [address] Creatinine [Mass/Vol] 3.24 mg/dL High 0.50-1.20 [facility] Comment on above: Result Comment: Test ing performed on [employer] analyzer using enzymatic creatinine methodology. Performed By: #### C BC, GFR, MORPH, RFP, DIFF #### [address] [address] Electrolyte Balance 14.0 mEq/L Normal 4.0-15.0 [facility] Comment on above: Performed By: #### C BC, GFR, MORPH, RFP, DIFF #### [address] [address] Glucose [Mass/Vol] 141 mg/dL High 82-115 [facility] Comment on above: Performed By: #### C BC, GFR, MORPH, RFP, DIFF #### [address] [address] Phosphate [Mass/Vol] 6.9 mg/dL High 2.4-5.1 [facility] Comment on above: Performed By: #### C BC, GFR, MORPH, RFP, DIFF #### [address] [address] Potassium [Moles/Vol] 4.9 mmol/L Normal 3.5-5.0 [facility] Comment on above: Performed By: #### C BC, GFR, MORPH, RFP, DIFF #### [address] [address] Sodium [Moles/Vol] 137 mmol/L Normal 136-145 [facility] MAIN Comment on above: Performed By: #### C BC, GFR, MORPH, RFP, DIFF #### [facility] [address] [place] [address] Urea nitrogen [Mass/Vol] 53.0 mg/dL High 8.0-22.0 [facility] MAIN Comment on above: Performed By: #### C BC, GFR, MORPH, RFP, DIFF #### [facility] [address] [place] [address] .Auto Diffon 04-02-2025 Basophil, Absolute 0.1 10 3/mcL Normal 0.0-0.3 [facility] MAIN Comment on above: Performed By: #### G FR, RFP #### [address] [address] Basophils/100 WBC (Bld) 1.0 % Normal 0.0-2.[address] [facility] MAIN Comment on above: Performed By: #### G FR, RFP #### [address] [address] Eosinophil, Absolute 0.2 10 3/mcL Normal 0.0-0.7 [facility] MAIN Comment on above: Performed By: #### G FR, RFP #### [address] [address] Eosinophils/100 WBC (Bld) 3.8 % Normal 0.0-6.0 [facility] MAIN Comment on above: Performed By: #### G FR, RFP #### [facility] [address] [place] [address] Lymphocyte, Absolute 0.8 10 3/mcL Low 0.9-4.3 [facility] MAIN Comment on above: Performed By: #### G FR, RFP #### [place] [id number] [place] [address] Lymphocytes/100 WBC (Bld) 13.5 % Low 20.0-40.0 [facility] MAIN Comment on above: Performed By: #### G FR, RFP #### [facility] [address] [place] [address] Monocyte, Absolute 0.7 10 3/mcL Normal 0.1-1.4 [facility] MAIN Comment on above: Performed By: #### G FR, RFP #### [address] [address] Monocytes/100 WBC (Bld) 11.7 % Normal 2.0-13.[address] [facility] MAIN Comment on above: Performed By: #### G FR, RFP #### [address] [address] Neutrophils/100 WBC (Bld) 70.0 % Normal 50.0-75.0 [facility] MAIN Comment on above: Performed By: #### G FR, RFP #### [address] [address] .GFRon 04-02-2025 Estimated Glomerular Filtration Rate 13 ml/min/1.73sqm [facility] MAIN Comment on above: Result Comment: [...] C BC, GFR, MORPH, RFP, DIFF #### [address] [address] .Morphon 04-02-2025 Anisocytosis Ql (Bld) 2+ Normal [facility] MAIN Comment on above: Performed By: #### G FR, RFP #### [address] [address] Microcytosis 2+ Normal [facility] MAIN Comment on above: Performed By: #### G FR, RFP #### [place] [phone] Ovalocytes 1+ Normal [facility] MAIN Comment on above: Performed By: #### G FR, RFP #### [place] [phone] Platelet Estimate Normal [facility] MAIN Comment on above: Performed By: #### G FR, RFP #### [place] [address] Poik 1+ Normal [facility] MAIN Comment on above: Performed By: #### G FR, RFP #### [place] [address] .NEUABSon 04-02-2025 Neutrophil, Absolute 4.2 10 3/mcL Normal 2.3-8.1 [facility] MAIN Comment on above: Performed By: #### G FR, RFP #### [place] [address] CBCon 04-02-2025 Erythrocyte distribution width (RBC) [Ratio] 27.5 % High 11.5-15.5 [facility] MAIN Comment on above: Performed By: #### G FR, RFP #### [place] [address] Hematocrit (Bld) [Volume fraction] 24.2 % Low 34.0-46.0 [facility] MAIN Comment on above: Performed By: #### G FR, RFP #### [place] [address] Hgb 7.8 G/dL Low 12.0-16.0 [facility] MAIN Comment on above: Performed By: #### G FR, RFP #### [place] [address] MCH (RBC) [Entitic mass] 24.0 pg Low 27.0-33.0 [facility] MAIN Comment on above: Performed By: #### G FR, RFP #### [place] [address] MCHC 32.0 G/dL Normal 32.0-36.0 [facility] MAIN Comment on above: Performed By: #### G FR, RFP #### [place] [address] MCV (RBC) [Entitic vol] 74.9 fL Low 80.0-99.[address] [facility] MAIN Comment on above: Performed By: #### G FR, RFP #### [place] [address] Platelet 242 10 3/mcL Normal 150-450 [facility] MAIN Comment on above: Performed By: #### G FR, RFP #### [address] [address] Platelet mean volume (Bld) [Entitic vol] 7.6 fL Normal 6.6-10.5 [facility] MAIN Comment on above: Performed By: #### G FR, RFP #### [address] [address] RBC 3.23 10 6/mcL Low 4.10-5.30 [facility] MAIN Comment on above: Performed By: #### G FR, RFP #### [address] [address] WBC 6.0 10 3/mcL Normal 4.5-10.8 [facility] MAIN Comment on above: Performed By: #### G FR, RFP #### [place] [phone] RFPon 04-02-2025 Albumin Level 2.4 G/dL Low 3.2-4.8 [facility] MAIN Comment on above: Performed By: #### C BC, GFR, MORPH, RFP, DIFF #### [address] [address] BUN/Creatinine Ratio 16.5 ratio Normal 10.0-22.0 [facility] MAIN Comment on above: Performed By: #### C BC, GFR, MORPH, RFP, DIFF #### [address] [address] Calcium [Mass/Vol] 8.9 mg/dL Normal 8.7-10.4 [facility] MA[facility] Comment on above: Performed By: #### C BC, GFR, MORPH, RFP, DIFF #### [address] [address] Chloride [Moles/Vol] 98 mmol/L Normal 98-110 [facility] MAIN Comment on above: Performed By: #### C BC, GFR, MORPH, RFP, DIFF #### [address] [address] CO2 [Moles/Vol] 25 mmol/L Normal 22-32 [facility] MAIN Comment on above: Performed By: #### C BC, GFR, MORPH, RFP, DIFF #### [address] [address] Creatinine [Mass/Vol] 3.52 mg/dL High 0.50-1.20 [facility] MAIN Comment on above: Result Comment: Test ing performed on [employer] analyzer using enzymatic creatinine methodology. Performed By: #### C BC, GFR, MORPH, RFP, DIFF #### [address] [address] Electrolyte Balance 14.0 mEq/L Normal 4.0-15.0 [facility] MAIN Comment on above: Performed By: #### C BC, GFR, MORPH, RFP, DIFF #### [address] [address] Glucose [Mass/Vol] 105 mg/dL Normal 82-115 [facility] MAIN Comment on above: Performed By: #### C BC, GFR, MORPH, RFP, DIFF #### [address] [address] Phosphate [Mass/Vol] 8.0 mg/dL High 2.4-5.1 [facility] MAIN Comment on above: Performed By: #### C BC, GFR, MORPH, RFP, DIFF #### [address] [address] Potassium [Moles/Vol] 5.7 mmol/L High 3.5-5.0 [facility] MAIN Comment on above: Performed By: #### C BC, GFR, MORPH, RFP, DIFF #### [address] [address] Sodium [Moles/Vol] 137 mmol/L Normal 136-145 [facility] MAIN Comment on above: Performed By: #### C BC, GFR, MORPH, RFP, DIFF #### [address] [address] Urea nitrogen [Mass/Vol] 58.0 mg/dL High 8.0-22.0 [facility] MAIN Comment on above: Performed By: #### C BC, GFR, MORPH, RFP, DIFF #### [address] [address] .Auto Diffon 03-30-2025 Basophil, Absolute 0.1 10 3/mcL Normal 0.0-0.3 [facility] MAIN Comment on above: Performed By: #### M G, RFP, BMP, GFR #### [facility] [address] [place] [address] Basophils/100 WBC (Bld) 1.1 % Normal 0.0-2.[address] [facility] MAIN Comment on above: Performed By: #### M G, RFP, BMP, GFR #### [address] [address] Eosinophil, Absolute 0.2 10 3/mcL Normal 0.0-0.7 [facility] MAIN Comment on above: Performed By: #### M G, RFP, BMP, GFR #### [address] [address] Eosinophils/100 WBC (Bld) 3.2 % Normal 0.0-6.0 [facility] MAIN Comment on above: Performed By: #### M G, RFP, BMP, GFR #### [address] [address] Lymphocyte, Absolute 0.7 10 3/mcL Low 0.9-4.3 [facility] MAIN Comment on above: Performed By: #### M G, RFP, BMP, GFR #### [address] [address] Lymphocytes/100 WBC (Bld) 14.1 % Low 20.0-40.0 [facility] MAIN Comment on above: Performed By: #### M G, RFP, BMP, GFR #### [address] [address] Monocyte, Absolute 0.7 10 3/mcL Normal 0.1-1.4 [facility] MAIN Comment on above: Performed By: #### M G, RFP, BMP, GFR #### [address] [address] Monocytes/100 WBC (Bld) 12.8 % Normal 2.0-13.[address] [facility] MAIN Comment on above: Performed By: #### M G, RFP, BMP, GFR #### [place] [address] Neutrophils/100 WBC (Bld) 68.8 % Normal 50.0-75.0 [facility] MAIN Comment on above: Performed By: #### M G, RFP, BMP, GFR #### [place] [address] .GFRon 03-30-2025 Estimated Glomerular Filtration Rate 16 ml/min/1.73sqm [facility] MAIN Comment on above: Result Comment: [...] #### M G, RFP, BMP, GFR #### [place] [address] .Morphon 03-30-2025 Anisocytosis Ql (Bld) 2+ Normal [facility] MAIN Comment on above: Performed By: #### M G, RFP, BMP, GFR #### [place] [address] Hypochrom 1+ Normal [facility] MAIN Comment on above: Performed By: #### M G, RFP, BMP, GFR #### [place] [address] Microcytosis 2+ Normal [facility] MAIN Comment on above: Performed By: #### M G, RFP, BMP, GFR #### [place] [address] Ovalocytes 1+ [facility] MAIN Comment on above: Performed By: #### M G, RFP, BMP, GFR #### [place] [address] Platelet Estimate Normal Normal [facility] MAIN Comment on above: Performed By: #### M G, RFP, BMP, GFR #### [place] [address] Poik 1+ Normal [facility] MAIN Comment on above: Performed By: #### M G, RFP, BMP, GFR #### [place] [address] .NEUABSon 03-30-2025 Neutrophil, Absolute 3.6 10 3/mcL Normal 2.3-8.1 [facility] MAIN Comment on above: Performed By: #### M G, RFP, BMP, GFR #### [place] [address] CBCon 03-30-2025 Erythrocyte distribution width (RBC) [Ratio] 27.7 % High 11.5-15.5 [facility] MAIN Comment on above: Performed By: #### M G, RFP, BMP, GFR #### [place] [address] Hematocrit (Bld) [Volume fraction] 24.9 % Low 34.0-46.0 [facility] MAIN Comment on above: Performed By: #### M G, RFP, BMP, GFR #### [place] [address] Hgb 7.8 G/dL Low 12.0-16.0 [facility] MAIN Comment on above: Performed By: #### M G, RFP, BMP, GFR #### [place] [address] MCH (RBC) [Entitic mass] 23.4 pg Low 27.0-33.0 [facility] MAIN Comment on above: Performed By: #### M G, RFP, BMP, GFR #### [place] [address] MCHC 31.3 G/dL Low 32.0-36.0 [facility] MAIN Comment on above: Performed By: #### M G, RFP, BMP, GFR #### [place] [address] MCV (RBC) [Entitic vol] 74.8 fL Low 80.0-99.[address] [facility] MAIN Comment on above: Performed By: #### M G, RFP, BMP, GFR #### [address] [address] Platelet 231 10 3/mcL Normal 150-450 [facility] MAIN Comment on above: Performed By: #### M G, RFP, BMP, GFR #### [address] [address] Platelet mean volume (Bld) [Entitic vol] 7.7 fL Normal 6.6-10.5 [facility] MAIN Comment on above: Performed By: #### M G, RFP, BMP, GFR #### [address] [address] RBC 3.33 10 6/mcL Low 4.10-5.30 [facility] MAIN Comment on above: Performed By: #### M G, RFP, BMP, GFR #### [address] [address] WBC 5.2 10 3/mcL Normal 4.5-10.8 [facility] MAIN Comment on above: Performed By: #### M G, RFP, BMP, GFR #### [address] [address] RFPon 03-30-2025 Albumin Level 2.1 G/dL Low 3.2-4.8 [facility] MAIN Comment on above: Performed By: #### M G, RFP, BMP, GFR #### [place] [phone] BUN/Creatinine Ratio 15.6 ratio Normal 10.0-22.0 [facility] MAIN Comment on above: Performed By: #### M G, RFP, BMP, GFR #### [address] [address] Calcium [Mass/Vol] 9.0 mg/dL Normal 8.7-10.4 [facility] MAIN Comment on above: Performed By: #### M G, RFP, BMP, GFR #### [place] [address] Chloride [Moles/Vol] 96 mmol/L Low 98-110 [facility] MAIN Comment on above: Performed By: #### M G, RFP, BMP, GFR #### [address] [address] CO2 [Moles/Vol] 27 mmol/L Normal 22-32 [facility] MAIN Comment on above: Performed By: #### M G, RFP, BMP, GFR #### [address] [address] Creatinine [Mass/Vol] 2.94 mg/dL High 0.50-1.20 [facility] MAIN Comment on above: Result Comment: Test ing performed on [employer] analyzer using enzymatic creatinine methodology. Performed By: #### M G, RFP, BMP, GFR #### [address] [address] Electrolyte Balance 14.0 mEq/L Normal 4.0-15.0 [facility] MAIN Comment on above: Performed By: #### M G, RFP, BMP, GFR #### [address] [address] Glucose [Mass/Vol] 173 mg/dL High 82-115 [facility] MAIN Comment on above: Performed By: #### M G, RFP, BMP, GFR #### [address] [address] Phosphate [Mass/Vol] 7.5 mg/dL High 2.4-5.1 [facility] MAIN Comment on above: Performed By: #### M G, RFP, BMP, GFR #### [address] [address] Potassium [Moles/Vol] 4.6 mmol/L Normal 3.5-5.0 [facility] MAIN Comment on above: Performed By: #### M G, RFP, BMP, GFR #### [address] [address] Sodium [Moles/Vol] 137 mmol/L Normal 136-145 [facility] MAIN Comment on above: Performed By: #### M G, RFP, BMP, GFR #### [address] [address] Urea nitrogen [Mass/Vol] 46.0 mg/dL High 8.0-22.0 [facility] MAIN Comment on above: Performed By: #### M G, RFP, BMP, GFR #### [address] [address] .GFRon 03-28-2025 Estimated Glomerular Filtration Rate 15 ml/min/1.73sqm Normal [facility] MAIN Comment on above: Result Comment: Stages [...] C BC, GFR, MORPH, RFP, DIFF #### [place] [address] RFPon 03-28-2025 Albumin Level 2.2 G/dL Low 3.2-4.8 [facility] MAIN Comment on above: Performed By: #### G FR, RFP #### [place] [phone] BUN/Creatinine Ratio 17.8 ratio Normal 10.0-22.0 [facility] MAIN Comment on above: Performed By: #### G FR, RFP #### [address] [address] Calcium [Mass/Vol] 8.7 mg/dL Normal 8.7-10.4 [facility] MAIN Comment on above: Performed By: #### G FR, RFP #### [address] [address] Chloride [Moles/Vol] 96 mmol/L Low 98-110 [facility] MAIN Comment on above: Performed By: #### G FR, RFP #### [address] [address] CO2 [Moles/Vol] 29 mmol/L Normal 22-32 [facility] MAIN Comment on above: Performed By: #### G FR, RFP #### [address] [address] Creatinine [Mass/Vol] 3.09 mg/dL High 0.50-1.20 [facility] MAIN Comment on above: Result Comment: Test ing performed on [employer] analyzer using enzymatic creatinine methodology. Performed By: #### G FR, RFP #### [address] [address] Electrolyte Balance 10.0 mEq/L Normal 4.0-15.0 [facility] MAIN Comment on above: Performed By: #### G FR, RFP #### [address] [address] Glucose [Mass/Vol] 129 mg/dL High 82-115 [facility] MAIN Comment on above: Performed By: #### G FR, RFP #### [address] [address] Phosphate [Mass/Vol] 7.8 mg/dL High 2.4-5.1 [facility] MAIN Comment on above: Performed By: #### G FR, RFP #### [address] [address] Potassium [Moles/Vol] 4.9 mmol/L Normal 3.5-5.0 [facility] MAIN Comment on above: Performed By: #### G FR, RFP #### [address] [address] Sodium [Moles/Vol] 135 mmol/L Low 136-145 [facility] MAIN Comment on above: Performed By: #### G FR, RFP #### [address] [address] Urea nitrogen [Mass/Vol] 55.0 mg/dL High 8.0-22.0 [facility] MAIN Comment on above: Performed By: #### G FR, RFP #### [address] [address] .GFRon 03-27-2025 Estimated Glomerular Filtration Rate 21 ml/min/1.73sqm Normal [facility] MAIN Comment on above: Result Comment: Stages [...] #### M G, RFP, BMP, GFR #### [address] [address] CMPon 03-27-2025 Albumin Level 2.2 G/dL Low 3.2-4.8 [facility] MAIN Comment on above: Performed By: #### M G, RFP, BMP, GFR #### [place] [address] Albumin/Globulin [Mass ratio] 0.6 {ratio} Low 0.9-1.6 [facility] MAIN Comment on above: Performed By: #### M G, RFP, BMP, GFR #### [address] [address] ALP [Catalytic activity/Vol] 208 U/L High 38-126 [facility] MAIN Comment on above: Performed By: #### M G, RFP, BMP, GFR #### [address] [address] ALT [Catalytic activity/Vol] 14 U/L Normal 10-49 [facility] MAIN Comment on above: Performed By: #### M G, RFP, BMP, GFR #### [address] [address] AST [Catalytic activity/Vol] 19 U/L Normal 8-34 [facility] MAIN Comment on above: Performed By: #### M G, RFP, BMP, GFR #### [place] [phone] Bili Total 0.30 mg/dL Normal 0.20-1.20 [facility] MAIN Comment on above: Result Comment: Use of this assay is not recommended for patients undergoing treatment with eltrombopag due to the potential for falsely elevated results. Performed By: #### M G, RFP, BMP, GFR #### [address] [address] BUN/Creatinine Ratio 19.6 ratio Normal 10.0-22.0 [facility] MAIN Comment on above: Performed By: #### M G, RFP, BMP, GFR #### [address] [address] Calcium [Mass/Vol] 8.4 mg/dL Low 8.7-10.4 [facility] MAIN Comment on above: Performed By: #### M Linda, RFP, BMP, GFR #### [address] [address] Chloride [Moles/Vol] 97 mmol/L Low 98-110 [facility] MAIN Comment on above: Performed By: #### M G, RFP, BMP, GFR #### [address] [address] CO2 [Moles/Vol] 30 mmol/L Normal 22-32 [facility] MAIN Comment on above: Performed By: #### M Linda, RFP, BMP, GFR #### [address] [address] Creatinine [Mass/Vol] 2.35 mg/dL High 0.50-1.20 [facility] MAIN Comment on above: Result Comment: Test ing performed on [employer] analyzer using enzymatic creatinine methodology. Performed By: #### M G, RFP, BMP, GFR #### [address] [address] Electrolyte Balance 8.0 mEq/L Normal 4.0-15.0 [facility] MAIN Comment on above: Performed By: #### M G, RFP, BMP, GFR #### [address] [address] Globulin 3.7 G/dL Normal 2.5-4.2 [facility] MAIN Comment on above: Performed By: #### M G, RFP, BMP, GFR #### [address] [address] Glucose [Mass/Vol] 170 mg/dL High 82-115 [facility] MAIN Comment on above: Performed By: #### M G, RFP, BMP, GFR #### [address] [address] Potassium [Moles/Vol] 4.8 mmol/L Normal 3.5-5.0 [facility] MAIN Comment on above: Performed By: #### M G, RFP, BMP, GFR #### [address] [address] Sodium [Moles/Vol] 135 mmol/L Low 136-145 [facility] MAIN Comment on above: Performed By: #### M G, RFP, BMP, GFR #### [address] [address] Total Protein 5.9 G/dL Normal 5.7-8.2 [facility] MAIN Comment on above: Performed By: #### Iain G, RFP, BMP, GFR #### [address] [address] Urea nitrogen [Mass/Vol] 46.0 mg/dL High 8.0-22.0 [facility] MAIN Comment on above: Performed By: #### Iain G, RFP, BMP, GFR #### [address] [address] MGon 03-27-2025 Magnesium [Mass/Vol] 2.4 mg/dL Normal 1.6-2.4 [facility] MAIN Comment on above: Performed By: #### M G, RFP, BMP, GFR #### [address] [address] .GFRon 03-26-2025 Estimated Glomerular Filtration Rate 14 ml/min/1.73sqm Normal [facility] MAIN Comment on above: Result Comment: Stages [...] C BC, GFR, MORPH, RFP, DIFF #### [place] [address] .Manual Diffon 03-26-2025 Bands 2.0 % Normal 0.0-5.0 [facility] MAIN Comment on above: Performed By: #### C BC, GFR, MORPH, RFP, DIFF #### [place] [address] Basophil %, Manual 1.0 % Normal 0.0-2.5 [facility] MAIN Comment on above: Performed By: #### C BC, GFR, MORPH, RFP, DIFF #### [place] [address] Basophil, Abs Manual 0.1 10 3/mcL Normal 0.0-0.3 [facility] MAIN Comment on above: Performed By: #### C BC, GFR, MORPH, RFP, DIFF #### [place] [address] Eosinophil %, Manual 2.0 % Normal 0.0-6.0 [facility] MAIN Comment on above: Performed By: #### C BC, GFR, MORPH, RFP, DIFF #### [place] [phone] Eosinophil, Abs Manual 0.2 10 3/mcL Normal 0.0-0.7 [facility] MAIN Comment on above: Performed By: #### C BC, GFR, MORPH, RFP, DIFF #### [place] [address] Lymphocyte %, Manual 9.0 % Low 20.0-40.0 [facility] MAIN Comment on above: Performed By: #### C BC, GFR, MORPH, RFP, DIFF #### [place] [address] Lymphocyte, Abs Manual 0.9 10 3/mcL Normal 0.9-4.3 [facility] MAIN Comment on above: Performed By: #### C BC, GFR, MORPH, RFP, DIFF #### [address] [address] Monocyte %, Manual 11.0 % Normal 2.0-13.0 [facility] MAIN Comment on above: Performed By: #### C BC, GFR, MORPH, RFP, DIFF #### [address] [address] Monocyte, Abs Manual 1.1 10 3/mcL Normal 0.1-1.4 [facility] MAIN Comment on above: Performed By: #### C BC, GFR, MORPH, RFP, DIFF #### [place] [address] Neutrophil %, Manual 75.0 % Normal 50.0-75.0 [facility] MAIN Comment on above: Performed By: #### C BC, GFR, MORPH, RFP, DIFF #### [place] [address] Neutrophil, Abs Manual 7.8 10 3/mcL Normal 2.3-8.1 [facility] MAIN Comment on above: Performed By: #### C BC, GFR, MORPH, RFP, DIFF #### [place] [address] Nucleated RBC 0.0 /100 WBC Normal [facility] MAIN Comment on above: Performed By: #### C BC, GFR, MORPH, RFP, DIFF #### [place] [address] .Morphon 03-26-2025 Anisocytosis Ql (Bld) 2+ Normal [facility] MAIN Comment on above: Performed By: #### C BC, GFR, MORPH, RFP, DIFF #### [place] [address] Microcytosis 2+ Normal [facility] MAIN Comment on above: Performed By: #### C BC, GFR, MORPH, RFP, DIFF #### [place] [address] Ovalocytes 1+ Normal [facility] MAIN Comment on above: Performed By: #### C BC, GFR, MORPH, RFP, DIFF #### [place] [address] Platelet Clumps Few Normal [facility] MAIN Comment on above: Performed By: #### C BC, GFR, MORPH, RFP, DIFF #### [place] [id number] Platelet Estimate Normal Normal [facility] MAIN Comment on above: Performed By: #### C BC, GFR, MORPH, RFP, DIFF #### [place] [address] CBCon 03-26-2025 Platelet 194 10 3/mcL Normal 150-450 [facility] MAIN Comment on above: Performed By: #### C BC, GFR, MORPH, RFP, DIFF #### [place] [address] Platelet mean volume (Bld) [Entitic vol] 8.1 fL Normal 6.6-10.5 [facility] MA[facility] Comment on above: Performed By: #### C BC, GFR, MORPH, RFP, DIFF #### [place] [address] WBC 10.1 10 3/mcL Normal 4.5-10.8 [facility] MAIN Comment on above: Performed By: #### C BC, GFR, MORPH, RFP, DIFF #### [place] [address] Erythrocyte distribution width (RBC) [Ratio] 27.8 % High 11.5-15.5 [facility] MAIN Comment on above: Performed By: #### C BC, GFR, MORPH, RFP, DIFF #### [place] [address] Hematocrit (Bld) [Volume fraction] 24.0 % Low 34.0-46.0 [facility] Comment on above: Performed By: #### C BC, GFR, MORPH, RFP, DIFF #### [place] [address] Hgb 8.0 G/dL Low 12.0-16.0 [facility] Comment on above: Performed By: #### C BC, GFR, MORPH, RFP, DIFF #### [place] [address] MCH (RBC) [Entitic mass] 24.2 pg Low 27.0-33.0 [facility] Comment on above: Performed By: #### C BC, GFR, MORPH, RFP, DIFF #### [address] [address] MCHC 33.1 G/dL Normal 32.0-36.0 [facility] Comment on above: Performed By: #### C BC, GFR, MORPH, RFP, DIFF #### [address] [address] MCV (RBC) [Entitic vol] 73.0 fL Low 80.0-99.[address] [facility] Comment on above: Performed By: #### C BC, GFR, MORPH, RFP, DIFF #### [place] [id number] RBC 3.29 10 6/mcL Low 4.10-5.30 [facility] Comment on above: Performed By: #### C BC, GFR, MORPH, RFP, DIFF #### [place] [id number] RFPon 03-26-2025 Albumin Level 2.4 G/dL Low 3.2-4.8 [facility] MAIN Comment on above: Performed By: #### C BC, GFR, MORPH, RFP, DIFF #### [place] [id number] BUN/Creatinine Ratio 19.9 ratio Normal 10.0-22.0 [facility] MAIN Comment on above: Performed By: #### C BC, GFR, MORPH, RFP, DIFF #### [address] [address] Calcium [Mass/Vol] 8.8 mg/dL Normal 8.7-10.4 [facility] MAIN Comment on above: Performed By: #### C BC, GFR, MORPH, RFP, DIFF #### [address] [address] Chloride [Moles/Vol] 94 mmol/L Low 98-110 [facility] MAIN Comment on above: Performed By: #### C BC, GFR, MORPH, RFP, DIFF #### [address] [address] CO2 [Moles/Vol] 23 mmol/L Normal 22-32 [facility] MAIN Comment on above: Performed By: #### C BC, GFR, MORPH, RFP, DIFF #### [address] [address] Creatinine [Mass/Vol] 3.32 mg/dL High 0.50-1.20 [facility] MAIN Comment on above: Result Comment: Test ing performed on [employer] analyzer using enzymatic creatinine methodology. Performed By: #### C BC, GFR, MORPH, RFP, DIFF #### [address] [address] Electrolyte Balance 15.0 mEq/L Normal 4.0-15.0 [facility] Comment on above: Performed By: #### C BC, GFR, MORPH, RFP, DIFF #### [address] [address] Glucose [Mass/Vol] 190 mg/dL High 82-115 [facility] MAIN Comment on above: Performed By: #### C BC, GFR, MORPH, RFP, DIFF #### [address] [address] Phosphate [Mass/Vol] 8.7 mg/dL High 2.4-5.1 [facility] MAIN Comment on above: Performed By: #### C BC, GFR, MORPH, RFP, DIFF #### [address] [address] Potassium [Moles/Vol] 5.5 mmol/L High 3.5-5.0 [facility] MAIN Comment on above: Performed By: #### C BC, GFR, MORPH, RFP, DIFF #### [address] [address] Sodium [Moles/Vol] 132 mmol/L Low 136-145 [facility] MAIN Comment on above: Performed By: #### C BC, GFR, MORPH, RFP, DIFF #### [address] [address] Urea nitrogen [Mass/Vol] 66.0 mg/dL High 8.0-22.0 [facility] MAIN Comment on above: Performed By: #### C BC, GFR, MORPH, RFP, DIFF #### [facility] [address] [place] [address] XR CHEST 1 VIEWon 03-26-2025 XR CHEST [...] 03/26/2025 12:00:03 PM Ordering Provider: BISHNU SALAMANCA [facility] .GFRon 03-25-2025 Estimated Glomerular Filtration Rate 17 ml/min/1.73sqm [facility] Comment on above: Result Comment: Stages of [...] Performed By: #### G FR, RFP #### [address] [address] [facility] BUN/Creatinine Ratio 21.8 ratio Normal 10.0-22.0 [facility] MAIN Comment on above: Performed By: #### G FR, RFP #### [address] [address] Calcium [Mass/Vol] 8.4 mg/dL Low 8.7-10.4 [facility] MAIN Comment on above: Performed By: #### G FR, RFP #### [address] [address] Chloride [Moles/Vol] 96 mmol/L Low 98-110 [facility] MAIN Comment on above: Performed By: #### G FR, RFP #### [address] [address] CO2 [Moles/Vol] 27 mmol/L Normal 22-32 [facility] MAIN Comment on above: Performed By: #### G FR, RFP #### [address] [address] Creatinine [Mass/Vol] 2.85 mg/dL High 0.50-1.20 [facility] MAIN Comment on above: Result Comment: Test ing performed on [employer] analyzer using enzymatic creatinine methodology. Performed By: #### G FR, RFP #### [address] [address] Electrolyte Balance 8.0 mEq/L Normal 4.0-15.0 [facility] MAIN Comment on above: Performed By: #### G FR, RFP #### [address] [address] Glucose [Mass/Vol] 203 mg/dL High 82-115 [facility] MAIN Comment on above: Performed By: #### G FR, RFP #### [address] [address] Potassium [Moles/Vol] 4.8 mmol/L Normal 3.5-5.0 [facility] MAIN Comment on above: Performed By: #### G FR, RFP #### [address] [address] Sodium [Moles/Vol] 131 mmol/L Low 136-145 [facility] MAIN Comment on above: Performed By: #### G FR, RFP #### [address] [address] Urea nitrogen [Mass/Vol] 62.0 mg/dL High 8.0-22.0 [facility] MAIN Comment on above: Performed By: #### G FR, RFP #### [address] [address] .Auto Diffon 03-23-2025 Basophil, Absolute 0.1 10 3/mcL Normal 0.0-0.3 [facility] MAIN Comment on above: Performed By: #### M G, RFP, BMP, GFR #### [address] [address] Basophils/100 WBC (Bld) 1.1 % Normal 0.0-2.[address] [facility] MAIN Comment on above: Performed By: #### M G, RFP, BMP, GFR #### [address] [address] Eosinophil, Absolute 0.1 10 3/mcL Normal 0.0-0.7 [facility] MAIN Comment on above: Performed By: #### M G, RFP, BMP, GFR #### [address] [address] Eosinophils/100 WBC (Bld) 2.0 % Normal 0.0-6.0 [facility] MAIN Comment on above: Performed By: #### M G, RFP, BMP, GFR #### [address] [address] Lymphocyte, Absolute 0.9 10 3/mcL Normal 0.9-4.3 [facility] MAIN Comment on above: Performed By: #### M G, RFP, BMP, GFR #### [address] [address] Lymphocytes/100 WBC (Bld) 14.1 % Low 20.0-40.0 [facility] MAIN Comment on above: Performed By: #### M G, RFP, BMP, GFR #### [facility] [address] [place] [address] Monocyte, Absolute 0.5 10 3/mcL Normal 0.1-1.4 [facility] MAIN Comment on above: Performed By: #### M G, RFP, BMP, GFR #### [facility] [address] [place] [address] Monocytes/100 WBC (Bld) 8.0 % Normal 2.0-13.[address] [facility] MAIN Comment on above: Performed By: #### M G, RFP, BMP, GFR #### [facility] [address] [place] [address] Neutrophils/100 WBC (Bld) 74.8 % Normal 50.0-75.0 [facility] MAIN Comment on above: Performed By: #### M G, RFP, BMP, GFR #### [address] [address] .GFRon 03-23-2025 Estimated Glomerular Filtration Rate 16 ml/min/1.73sqm Normal [facility] MAIN Comment on above: Result Comment: Stages [...] #### M G, RFP, BMP, GFR #### [facility] [address] [place] [address] .NEUABSon 03-23-2025 Neutrophil, Absolute 4.6 10 3/mcL Normal 2.3-8.1 [facility] MAIN Comment on above: Performed By: #### M G, RFP, BMP, GFR #### [facility] [address] [place] [address] BFPRon 03-23-2025 Body Fluid Path Review Normal [facility] MAIN Comment on above: Order [...] C BC, GFR, MORPH, RFP, DIFF #### [place] [id number] CBCon 03-23-2025 Erythrocyte distribution width (RBC) [Ratio] 27.5 % High 11.5-15.5 [facility] MAIN Comment on above: Performed By: #### M G, RFP, BMP, GFR #### [place] [address] Hematocrit (Bld) [Volume fraction] 25.6 % Low 34.0-46.0 [facility] MAIN Comment on above: Performed By: #### M G, RFP, BMP, GFR #### [place] [address] Hgb 8.1 G/dL Low 12.0-16.0 [facility] MAIN Comment on above: Performed By: #### M G, RFP, BMP, GFR #### [place] [address] MCH (RBC) [Entitic mass] 23.0 pg Low 27.0-33.0 [facility] MAIN Comment on above: Performed By: #### M G, RFP, BMP, GFR #### [place] [address] MCHC 31.7 G/dL Low 32.0-36.0 [facility] MAIN Comment on above: Performed By: #### M G, RFP, BMP, GFR #### [place] [address] MCV (RBC) [Entitic vol] 72.5 fL Low 80.0-99.[address] [facility] MAIN Comment on above: Performed By: #### M G, RFP, BMP, GFR #### [place] [address] Platelet 226 10 3/mcL Normal 150-450 [facility] MAIN Comment on above: Performed By: #### M G, RFP, BMP, GFR #### [place] [address] Platelet mean volume (Bld) [Entitic vol] 8.1 fL Normal 6.6-10.5 [facility] MAIN Comment on above: Performed By: #### M G, RFP, BMP, GFR #### [place] [address] RBC 3.54 10 6/mcL Low 4.10-5.30 [facility] MAIN Comment on above: Performed By: #### M G, RFP, BMP, GFR #### [place] [address] WBC 6.1 10 3/mcL Normal 4.5-10.8 [facility] MAIN Comment on above: Performed By: #### M G, RFP, BMP, GFR #### [place] [address] Non-Creping Machine Operator Cytology Reporton Non-Creping Machine Operator Cytology Report . Pathology Reports Accession: Collected Date/Time: Received Date/Time: Pathologist: [id number] 03/22/2025 09:55 EDT 03/22/2025 14:12 EDT CHRISTIANO LIU MD Non-Creping Machine Operator Cytology Report CLINICAL INFORMATION: effusion DIAGNOSTIC CATEGORY: NEGATIVE FOR MALIGNANCY. SPECIMEN: Left pleural fluid GROSS DESCRIPTION: # of Blocks: 1 # of Monolayers: 1 Volume (ml) 600 Color: fresh cloudy orange Verified by Pathology Report verified by [facility] Screened by: HARJIT CA Electronically signed by CHRISTIANO LIU Sign-Out Date: 03/23/2025 10:21 Performing Lab: [address] Pathology Dept Disclaimer If ancillary studies were utilized, the following Laboratory Developed Test (LDT) disclaimer will apply: Under CLIA requirements, [facility] is qualified to perform high complexity testing. For all ancillary stains, positive and negative controls stain appropriately. Performance characteristics of immunohistochemical and chromogenic in-situ hybridization tests have been determined by [facility]. These tests are used for clinical purposes, They should not be regarded as investigational or for research. Normal [facility] MAIN RFPon 03-23-2025 Albumin Level 2.1 G/dL Low 3.2-4.8 [facility] MAIN Comment on above: Performed By: #### M G, RFP, BMP, GFR #### [address] [address] BUN/Creatinine Ratio 22.8 ratio High 10.0-22.0 [facility] MAIN Comment on above: Performed By: #### M G, RFP, BMP, GFR #### [address] [address] Calcium [Mass/Vol] 8.4 mg/dL Low 8.7-10.4 [facility] MAIN Comment on above: Performed By: #### M G, RFP, BMP, GFR #### [address] [address] Chloride [Moles/Vol] 96 mmol/L Low 98-110 [facility] MAIN Comment on above: Performed By: #### M G, RFP, BMP, GFR #### [address] [address] CO2 [Moles/Vol] 24 mmol/L Normal 22-32 [facility] MAIN Comment on above: Performed By: #### M G, RFP, BMP, GFR #### [address] [address] Creatinine [Mass/Vol] 2.89 mg/dL High 0.50-1.20 [facility] MAIN Comment on above: Result Comment: Test ing performed on [employer] analyzer using enzymatic creatinine methodology. Performed By: #### M G, RFP, BMP, GFR #### [address] [address] Electrolyte Balance 9.0 mEq/L Normal 4.0-15.0 [facility] MAIN Comment on above: Performed By: #### M G, RFP, BMP, GFR #### [address] [address] Glucose [Mass/Vol] 146 mg/dL High 82-115 [facility] MAIN Comment on above: Performed By: #### M G, RFP, BMP, GFR #### [address] [address] Phosphate [Mass/Vol] 7.4 mg/dL High 2.4-5.1 [facility] MAIN Comment on above: Performed By: #### M G, RFP, BMP, GFR #### [address] [address] Potassium [Moles/Vol] 4.7 mmol/L Normal 3.5-5.0 [facility] MAIN Comment on above: Performed By: #### M G, RFP, BMP, GFR #### [address] [address] Sodium [Moles/Vol] 129 mmol/L Low 136-145 [facility] MAIN Comment on above: Performed By: #### M G, RFP, BMP, GFR #### [address] [address] Urea nitrogen [Mass/Vol] 66.0 mg/dL High 8.0-22.0 [facility] MAIN Comment on above: Performed By: #### M G, RFP, BMP, GFR #### [address] [address] BFCTon 03-22-2025 Cells Counted BF 100 [facility] MAIN Comment on above: Performed By: #### C BC, GFR, MORPH, RFP, DIFF #### [address] [address] Lymphocytes/100 WBC (Bld) 31 % Normal [facility] MAIN Comment on above: Performed By: #### C BC, GFR, MORPH, RFP, DIFF #### [address] [address] Mesothelial Cell % BF 34 % Normal [facility] MAIN Comment on above: Performed By: #### C BC, GFR, MORPH, RFP, DIFF #### [address] [address] Mononuclear cell % BF 5 % Normal [facility] MAIN Comment on above: Performed By: #### C BC, GFR, MORPH, RFP, DIFF #### [place] [address] Neutrophils/100 WBC (Bld) 30 % Normal [facility] MAIN Comment on above: Performed By: #### C BC, GFR, MORPH, RFP, DIFF #### [place] [address] Body Fluid Source Pleural fluid Normal [facility] MAIN Comment on above: Result Comment: Refe rence ranges have not been established for this body fluid. The test results must be integrated into the clinical context for interpretation. Performed By: #### C BC, GFR, MORPH, RFP, DIFF #### [place] [address] Total Nucleated Cells 820 /mm3 Normal [facility] MAIN Comment on above: Performed By: #### C BC, GFR, MORPH, RFP, DIFF #### [place] [address] GLUBF 03-22-2025 Glucose BF 113.0 mg/dL Normal [facility] MAIN Comment on above: Performed By: #### C BC, GFR, MORPH, RFP, DIFF #### [place] [address] Glucose Body Fluid Spec Type Pleural fluid Normal [facility] MAIN Comment on above: Result Comment: The reference interval(s) and other method performance specifications have not been established for this body fluid. The test result must be integrated into the clinical content for interpretation. Performed By: #### C BC, GFR, MORPH, RFP, DIFF #### [place] [address] LDBF 03-22-2025 LDH BF 71.0 U/L Normal [facility] MAIN Comment on above: Performed By: #### C BC, GFR, MORPH, RFP, DIFF #### [place] [address] LDH Body Fluid Spec Type Pleural fluid Normal [facility] MAIN Comment on above: Result Comment: The reference interval(s) and other method performance specifications have not been established for this body fluid. The test result must be integrated into the clinical content for interpretation. . Performed By: #### C BC, GFR, MORPH, RFP, DIFF #### [place] [address] PHBFon 03-22-2025 pH BF 7.4 Normal [facility] MAIN Comment on above: Performed By: #### G FR, RFP #### [place] [address] pH BF Spec Type Pleural fluid Normal [facility] MAIN Comment on above: Result Comment: LEFT The reference interval(s) and other method performance specifications have not been established for this body fluid. The test result must be integrated into the clinical content for interpretation. Performed By: #### G FR, RFP #### [place] [address] PROBFon 03-22-2025 Protein BF <2.0 Normal [facility] MAIN Comment on above: Performed By: #### C BC, GFR, MORPH, RFP, DIFF #### [place] [address] Protein BF Type Pleural fluid Normal [facility] MAIN Comment on above: Result Comment: The reference interval(s) and other method performance specifications have not been established for this body fluid. The test result must be integrated into the clinical content for interpretation. Performed By: #### C BC, GFR, MORPH, RFP, DIFF #### [place] [address] XR CHEST 1 VIEWon 03-22-2025 XR CHEST [...] 03/22/2025 10:22:24 AM Ordering Provider: CHA YUSUF [facility] MAIN .GFRon 03-21-2025 Estimated Glomerular Filtration Rate 15 ml/min/1.73sqm [facility] MAIN Comment on above: Result Comment: [...] #### M G, RFP, BMP, GFR #### [address] [address] [facility] 03-21-2025 Albumin Level 2.1 G/dL Low 3.2-4.8 [facility] MAIN Comment on above: Performed By: #### M G, RFP, BMP, GFR #### [address] [address] BUN/Creatinine Ratio 26.9 ratio High 10.0-22.0 [facility] MAIN Comment on above: Performed By: #### M G, RFP, BMP, GFR #### [address] [address] Calcium [Mass/Vol] 8.2 mg/dL Low 8.7-10.4 [facility] MAIN Comment on above: Performed By: #### M G, RFP, BMP, GFR #### [address] [address] Chloride [Moles/Vol] 92 mmol/L Low 98-110 [facility] MAIN Comment on above: Performed By: #### M G, RFP, BMP, GFR #### [address] [address] CO2 [Moles/Vol] 21 mmol/L Low 22-32 [facility] MAIN Comment on above: Performed By: #### M G, RFP, BMP, GFR #### [address] [address] Creatinine [Mass/Vol] 3.08 mg/dL High 0.50-1.20 [facility] MAIN Comment on above: Result Comment: Test ing performed on [employer] analyzer using enzymatic creatinine methodology. Performed By: #### M G, RFP, BMP, GFR #### [address] [address] Electrolyte Balance 17.0 mEq/L High 4.0-15.0 [facility] MAIN Comment on above: Performed By: #### M G, RFP, BMP, GFR #### [address] [address] Glucose [Mass/Vol] 201 mg/dL High 82-115 [facility] MAIN Comment on above: Performed By: #### M G, RFP, BMP, GFR #### [address] [address] Phosphate [Mass/Vol] 6.9 mg/dL High 2.4-5.1 [facility] MAIN Comment on above: Performed By: #### M G, RFP, BMP, GFR #### [address] [address] Potassium [Moles/Vol] 5.0 mmol/L Normal 3.5-5.0 [facility] MAIN Comment on above: Performed By: #### M G, RFP, BMP, GFR #### [address] [address] Sodium [Moles/Vol] 130 mmol/L Low 136-145 [facility] MAIN Comment on above: Performed By: #### M G, RFP, BMP, GFR #### [address] [address] Urea nitrogen [Mass/Vol] 83.0 mg/dL High 8.0-22.0 [facility] MAIN Comment on above: Performed By: #### M G, RFP, BMP, GFR #### [address] [address] XR CHEST 1 VIEWon 03-21-2025 XR CHEST [...] 10:34:28 AM Ordering Provider: CHA YUSUF Normal [facility] MAIN .Manual Diffon 03-20-2025 Bands 2.0 % Normal 0.0-5.0 [facility] MAIN Comment on above: Performed By: #### C BC, GFR, MORPH, RFP, DIFF #### [address] [address] Basophil %, Manual 0.0 % Normal 0.0-2.5 [facility] MAIN Comment on above: Performed By: #### C BC, GFR, MORPH, RFP, DIFF #### [address] [address] Basophil, Abs Manual 0.0 10 3/mcL Normal 0.0-0.3 [facility] MAIN Comment on above: Performed By: #### C BC, GFR, MORPH, RFP, DIFF #### [address] [address] Eosinophil %, Manual 3.0 % Normal 0.0-6.0 [facility] MAIN Comment on above: Performed By: #### C BC, GFR, MORPH, RFP, DIFF #### [address] [address] Eosinophil, Abs Manual 0.2 10 3/mcL Normal 0.0-0.7 [facility] MAIN Comment on above: Performed By: #### C BC, GFR, MORPH, RFP, DIFF #### [address] [address] Lymphocyte %, Manual 10.0 % Low 20.0-40.0 [facility] MAIN Comment on above: Performed By: #### C BC, GFR, MORPH, RFP, DIFF #### [address] [address] Lymphocyte, Abs Manual 0.7 10 3/mcL Low 0.9-4.3 [facility] MAIN Comment on above: Performed By: #### C BC, GFR, MORPH, RFP, DIFF #### [address] [address] Monocyte %, Manual 5.0 % Normal 2.0-13.0 [facility] MAIN Comment on above: Performed By: #### C BC, GFR, MORPH, RFP, DIFF #### [address] [address] Monocyte, Abs Manual 0.3 10 3/mcL Normal 0.1-1.4 [facility] MAIN Comment on above: Performed By: #### C BC, GFR, MORPH, RFP, DIFF #### [address] [address] Neutrophil %, Manual 80.0 % High 50.0-75.0 [facility] MAIN Comment on above: Performed By: #### C BC, GFR, MORPH, RFP, DIFF #### [address] [address] Neutrophil, Abs Manual 5.1 10 3/mcL Normal 2.3-8.1 [facility] MAIN Comment on above: Performed By: #### C BC, GFR, MORPH, RFP, DIFF #### [address] [address] Nucleated RBC 0.0 /100 WBC Normal [facility] MAIN Comment on above: Performed By: #### C BC, GFR, MORPH, RFP, DIFF #### [address] [address] .Morphon 03-20-2025 Anisocytosis Ql (Bld) 2+ Normal [facility] MAIN Comment on above: Performed By: #### C BC, GFR, MORPH, RFP, DIFF #### [place] [address] Microcytosis 2+ Normal [facility] MAIN Comment on above: Performed By: #### C BC, GFR, MORPH, RFP, DIFF #### [place] [address] Ovalocytes 2+ Normal [facility] MAIN Comment on above: Performed By: #### C BC, GFR, MORPH, RFP, DIFF #### [place] [address] Platelet Clumps Few Normal [facility] MAIN Comment on above: Performed By: #### C BC, GFR, MORPH, RFP, DIFF #### [place] [address] Platelet Estimate Normal [facility] MAIN Comment on above: Performed By: #### C BC, GFR, MORPH, RFP, DIFF #### [place] [address] Poik 1+ [facility] MAIN Comment on above: Performed By: #### C BC, GFR, MORPH, RFP, DIFF #### [place] [address] Polychrom 1+ [facility] MAIN Comment on above: Performed By: #### C BC, GFR, MORPH, RFP, DIFF #### [place] [address] CBCon 03-20-2025 Platelet 174 10 3/mcL Normal 150-450 [facility] MAIN Comment on above: Order Comment: Speci men clotted. Called Crissy from venipuncture for recollect. 2025 05:24:36 EDT Performed By: #### C BC, GFR, MORPH, RFP, DIFF #### [place] [address] Platelet mean volume (Bld) [Entitic vol] 9.4 fL Normal 6.6-10.5 [facility] MAIN Comment on above: Order Comment: Speci men clotted. Called Crissy from venipuncture for recollect. 2025 05:24:36 EDT Performed By: #### C BC, GFR, MORPH, RFP, DIFF #### [address] [address] .GFRon 2025 Estimated Glomerular Filtration Rate 15 ml/min/1.73sqm Normal [facility] MAIN Comment on above: Result Comment: Stages [...] C BC, GFR, MORPH, RFP, DIFF #### [place] [address] CBCon 2025 Erythrocyte distribution width (RBC) [Ratio] 26.1 % High 11.5-15.5 [facility] MAIN Comment on above: Order Comment: Speci men clotted. Called Crissy from venipuncture for recollect. 2025 05:24:36 EDT Performed By: #### C BC, GFR, MORPH, RFP, DIFF #### [place] [address] Hematocrit (Bld) [Volume fraction] 27.6 % Low 34.0-46.0 [facility] MAIN Comment on above: Order Comment: Speci men clotted. Called Crissy from venipuncture for recollect. 2025 05:24:36 EDT Performed By: #### C BC, GFR, MORPH, RFP, DIFF #### [place] [address] Hgb 8.7 G/dL Low 12.0-16.0 [facility] MAIN Comment on above: Order Comment: Speci men clotted. Called Crissy from venipuncture for recollect. 2025 05:24:36 EDT Performed By: #### C BC, GFR, MORPH, RFP, DIFF #### [address] [address] MCH (RBC) [Entitic mass] 22.4 pg Low 27.0-33.0 [facility] MAIN Comment on above: Order Comment: Speci men clotted. Called Crissy from venipuncture for recollect. 2025 05:24:36 EDT Performed By: #### C BC, GFR, MORPH, RFP, DIFF #### [place] [address] MCHC 31.4 G/dL Low 32.0-36.0 [facility] MAIN Comment on above: Order Comment: Speci men clotted. Called Crissy from venipuncture for recollect. 2025 05:24:36 EDT Performed By: #### C BC, GFR, MORPH, RFP, DIFF #### [place] [address] MCV (RBC) [Entitic vol] 71.3 fL Low 80.0-99.[address] [facility] MAIN Comment on above: Order Comment: Speci men clotted. Called Crissy from venipuncture for recollect. 2025 05:24:36 EDT Performed By: #### C BC, GFR, MORPH, RFP, DIFF #### [place] [address] RBC 3.87 10 6/mcL Low 4.10-5.30 [facility] MAIN Comment on above: Order Comment: Speci men clotted. Called Crissy from venipuncture for recollect. 2025 05:24:36 EDT Performed By: #### C BC, GFR, MORPH, RFP, DIFF #### [place] [id number] WBC 6.4 10 3/mcL Normal 4.5-10.8 [facility] MAIN Comment on above: Order Comment: Speci men clotted. Called Crissy from venipuncture for recollect. 2025 05:24:36 EDT Performed By: #### C BC, GFR, MORPH, RFP, DIFF #### [address] [address] RFPon 2025 Albumin Level 2.2 G/dL Low 3.2-4.8 [facility] MAIN Comment on above: Performed By: #### C BC, GFR, MORPH, RFP, DIFF #### [place] [id number] BUN/Creatinine Ratio 30.0 ratio High 10.0-22.0 [facility] MAIN Comment on above: Performed By: #### C BC, GFR, MORPH, RFP, DIFF #### [address] [address] Calcium [Mass/Vol] 8.3 mg/dL Low 8.7-10.4 [facility] MAIN Comment on above: Performed By: #### C BC, GFR, MORPH, RFP, DIFF #### [place] [address] Chloride [Moles/Vol] 93 mmol/L Low 98-110 [facility] MAIN Comment on above: Performed By: #### C BC, GFR, MORPH, RFP, DIFF #### [place] [address] CO2 [Moles/Vol] 21 mmol/L Low 22-32 [facility] MAIN Comment on above: Performed By: #### C BC, GFR, MORPH, RFP, DIFF #### [address] [address] Creatinine [Mass/Vol] 3.03 mg/dL High 0.50-1.20 [facility] MAIN Comment on above: Result Comment: Test ing performed on [employer] analyzer using enzymatic creatinine methodology. Performed By: #### C BC, GFR, MORPH, RFP, DIFF #### [address] [address] Electrolyte Balance 14.0 mEq/L Normal 4.0-15.0 [facility] MAIN Comment on above: Performed By: #### C BC, GFR, MORPH, RFP, DIFF #### [address] [address] Glucose [Mass/Vol] 185 mg/dL High 82-115 [facility] MAIN Comment on above: Performed By: #### C BC, GFR, MORPH, RFP, DIFF #### [facility] [address] [place] [address] Phosphate [Mass/Vol] 6.6 mg/dL High 2.4-5.1 [facility] MAIN Comment on above: Performed By: #### C BC, GFR, MORPH, RFP, DIFF #### [address] [address] Potassium [Moles/Vol] 4.5 mmol/L Normal 3.5-5.0 [facility] MAIN Comment on above: Performed By: #### C BC, GFR, MORPH, RFP, DIFF #### [address] [address] Sodium [Moles/Vol] 128 mmol/L Low 136-145 [facility] MAIN Comment on above: Performed By: #### C BC, GFR, MORPH, RFP, DIFF #### [address] [address] Urea nitrogen [Mass/Vol] 91.0 mg/dL High 8.0-22.0 [facility] MAIN Comment on above: Performed By: #### C BC, GFR, MORPH, RFP, DIFF #### [address] [address] XR CHEST 1 VIEWon 2025 XR CHEST [...] Interpreted by: Toyin Rogers Preliminary Report By: [place] Rogers Electronically signed By Toyin Rogers Dictated Date: 2025 9:56:46 AM Prelim Date: 2025 9:57:53 AM Sign Date: 2025 9:57:53 AM Ordering Provider: JANAE ZARCO [facility] MAIN .GFRon 03-17-2025 Estimated Glomerular Filtration Rate 31 ml/min/1.73sqm [facility] MAIN Comment on above: Result Comment: [...] #### M G, RFP, BMP, GFR #### [address] [address] BMPon 03-17-2025 BUN/Creatinine Ratio 46.8 ratio High 10.0-22.0 [facility] MAIN Comment on above: Performed By: #### M G, RFP, BMP, GFR #### [address] [address] Calcium [Mass/Vol] 7.7 mg/dL Low 8.7-10.4 [facility] MAIN Comment on above: Performed By: #### M G, RFP, BMP, GFR #### [address] [address] Chloride [Moles/Vol] 102 mmol/L Normal 98-110 [facility] MAIN Comment on above: Performed By: #### M G, RFP, BMP, GFR #### [address] [address] CO2 [Moles/Vol] 26 mmol/L Normal 22-32 [facility] MAIN Comment on above: Performed By: #### M G, RFP, BMP, GFR #### [address] [address] Creatinine [Mass/Vol] 1.71 mg/dL High 0.50-1.20 [facility] MAIN Comment on above: Result Comment: Test ing performed on [employer] analyzer using enzymatic creatinine methodology. Performed By: #### M G, RFP, BMP, GFR #### [address] [address] Electrolyte Balance 9.0 mEq/L Normal 4.0-15.0 [facility] MAIN Comment on above: Performed By: #### M G, RFP, BMP, GFR #### [address] [address] Glucose [Mass/Vol] 231 mg/dL High 82-115 [facility] MAIN Comment on above: Performed By: #### M G, RFP, BMP, GFR #### [place] [id number] Potassium [Moles/Vol] 3.8 mmol/L Normal 3.5-5.0 [facility] MAIN Comment on above: Performed By: #### M G, RFP, BMP, GFR #### [place] [id number] Sodium [Moles/Vol] 137 mmol/L Normal 136-145 [facility] MAIN Comment on above: Performed By: #### M G, RFP, BMP, GFR #### [address] [address] Urea nitrogen [Mass/Vol] 80.0 mg/dL High 8.0-22.0 [facility] MAIN Comment on above: Performed By: #### M G, RFP, BMP, GFR #### [address] [address] HBSABon 03-17-2025 Hep B Surf Ab <3.1 Low >=10.0 [facility] MAIN Comment on above: Result Comment: 0 [...] C BC, GFR, MORPH, RFP, DIFF #### [facility] [address] [place] [address] HBSAGon 03-17-2025 Hep B Surf Ag Non-Reactive Normal Non-Reactive [facility] MAIN Comment on above: Performed By: #### C BC, GFR, MORPH, RFP, DIFF #### [address] [address] .GFRon 03-16-2025 Estimated Glomerular Filtration Rate 27 ml/min/1.73sqm Normal [facility] MAIN Comment on above: Result Comment: Stages [...] #### M G, RFP, BMP, GFR #### [address] [address] RFPon 03-16-2025 Albumin Level 2.4 G/dL Low 3.2-4.8 [facility] MAIN Comment on above: Performed By: #### M G, RFP, BMP, GFR #### [address] [address] BUN/Creatinine Ratio 57.0 ratio High 10.0-22.0 [facility] MAIN Comment on above: Performed By: #### M G, RFP, BMP, GFR #### [address] [address] Calcium [Mass/Vol] 8.7 mg/dL Normal 8.7-10.4 [facility] MAIN Comment on above: Performed By: #### M G, RFP, BMP, GFR #### [address] [address] Chloride [Moles/Vol] 108 mmol/L Normal 98-110 [facility] MAIN Comment on above: Performed By: #### M G, RFP, BMP, GFR #### [address] [address] CO2 [Moles/Vol] 24 mmol/L Normal 22-32 [facility] MAIN Comment on above: Performed By: #### M G, RFP, BMP, GFR #### [address] [address] Creatinine [Mass/Vol] 1.93 mg/dL High 0.50-1.20 [facility] MAIN Comment on above: Result Comment: Test ing performed on [employer] analyzer using enzymatic creatinine methodology. Performed By: #### M G, RFP, BMP, GFR #### [address] [address] Electrolyte Balance 8.0 mEq/L Normal 4.0-15.0 [facility] MAIN Comment on above: Performed By: #### M G, RFP, BMP, GFR #### [address] [address] Glucose [Mass/Vol] 323 mg/dL High 82-115 [facility] MAIN Comment on above: Performed By: #### M G, RFP, BMP, GFR #### [address] [address] Phosphate [Mass/Vol] 5.2 mg/dL High 2.4-5.1 [facility] MAIN Comment on above: Performed By: #### M G, RFP, BMP, GFR #### [address] [address] Potassium [Moles/Vol] 5.0 mmol/L Normal 3.5-5.0 [facility] MAIN Comment on above: Performed By: #### M G, RFP, BMP, GFR #### [address] [address] Sodium [Moles/Vol] 140 mmol/L Normal 136-145 [facility] MAIN Comment on above: Performed By: #### M G, RFP, BMP, GFR #### [address] [address] Urea nitrogen [Mass/Vol] 110.0 mg/dL High 8.0-22.0 [facility] MAIN Comment on above: Performed By: #### M G, RFP, BMP, GFR #### [address] [address] MGon 03-15-2025 Magnesium [Mass/Vol] 2.1 mg/dL Normal 1.6-2.4 [facility] MAIN Comment on above: Performed By: #### C BC, GFR, MORPH, RFP, DIFF #### [address] [address] .Auto Diffon 03-14-2025 Basophil, Absolute 0.1 10 3/mcL Normal 0.0-0.3 [facility] MAIN Comment on above: Performed By: #### M G, RFP, BMP, GFR #### [address] [address] Basophils/100 WBC (Bld) 0.6 % Normal 0.0-2.[address] [facility] MAIN Comment on above: Performed By: #### M G, RFP, BMP, GFR #### [address] [address] Eosinophil, Absolute 0.0 10 3/mcL Normal 0.0-0.7 [facility] MAIN Comment on above: Performed By: #### M G, RFP, BMP, GFR #### [address] [address] Eosinophils/100 WBC (Bld) 0.4 % Normal 0.0-6.0 [facility] MAIN Comment on above: Performed By: #### M G, RFP, BMP, GFR #### [address] [address] Lymphocyte, Absolute 0.3 10 3/mcL Low 0.9-4.3 [facility] MAIN Comment on above: Performed By: #### M G, RFP, BMP, GFR #### [address] [address] Lymphocytes/100 WBC (Bld) 3.7 % Low 20.0-40.0 [facility] MAIN Comment on above: Performed By: #### M G, RFP, BMP, GFR #### [facility] [address] [place] [address] Monocyte, Absolute 0.5 10 3/mcL Normal 0.1-1.4 [facility] MAIN Comment on above: Performed By: #### M G, RFP, BMP, GFR #### [facility] [address] [place] [address] Monocytes/100 WBC (Bld) 5.7 % Normal 2.0-13.[address] [facility] MAIN Comment on above: Performed By: #### M G, RFP, BMP, GFR #### [address] [address] Neutrophils/100 WBC (Bld) 89.6 % High 50.0-75.0 [facility] MAIN Comment on above: Performed By: #### M G, RFP, BMP, GFR #### [address] [address] .GFRon 03-14-2025 Estimated Glomerular Filtration Rate 34 ml/min/1.73sqm Normal [facility] MAIN Comment on above: Result Comment: Stages [...] #### M G, RFP, BMP, GFR #### [facility] [address] [place] [address] .Morphon 03-14-2025 Anisocytosis Ql (Bld) 2+ Normal [facility] MAIN Comment on above: Performed By: #### M G, RFP, BMP, GFR #### [place] [address] Microcytosis 2+ Normal [facility] MAIN Comment on above: Performed By: #### M G, RFP, BMP, GFR #### [place] [address] Ovalocytes 1+ Normal [facility] MAIN Comment on above: Performed By: #### M G, RFP, BMP, GFR #### [place] [address] Platelet Estimate Normal Normal [facility] MAIN Comment on above: Performed By: #### M G, RFP, BMP, GFR #### [place] [address] Poik 1+ Normal [facility] MAIN Comment on above: Performed By: #### M G, RFP, BMP, GFR #### [place] [address] .NEUABSon 03-14-2025 Neutrophil, Absolute 7.4 10 3/mcL Normal 2.3-8.1 [facility] MAIN Comment on above: Performed By: #### M G, RFP, BMP, GFR #### [place] [address] CBCon 03-14-2025 Platelet 200 10 3/mcL Normal 150-450 [facility] MAIN Comment on above: Performed By: #### M G, RFP, BMP, GFR #### [place] [address] Platelet mean volume (Bld) [Entitic vol] 9.5 fL Normal 6.6-10.5 [facility] MAIN Comment on above: Performed By: #### M G, RFP, BMP, GFR #### [place] [address] Erythrocyte distribution width (RBC) [Ratio] 25.5 % High 11.5-15.5 [facility] MAIN Comment on above: Performed By: #### M G, RFP, BMP, GFR #### [place] [address] Hematocrit (Bld) [Volume fraction] 31.7 % Low 34.0-46.0 [facility] MAIN Comment on above: Performed By: #### M G, RFP, BMP, GFR #### [place] [address] Hgb 9.8 G/dL Low 12.0-16.0 [facility] MAIN Comment on above: Performed By: #### M G, RFP, BMP, GFR #### [place] [address] MCH (RBC) [Entitic mass] 22.8 pg Low 27.0-33.0 [facility] MAIN Comment on above: Performed By: #### M G, RFP, BMP, GFR #### [place] [address] MCHC 31.0 G/dL Low 32.0-36.0 [facility] MAIN Comment on above: Performed By: #### M G, RFP, BMP, GFR #### [place] [address] MCV (RBC) [Entitic vol] 73.7 fL Low 80.0-99.[address] [facility] MAIN Comment on above: Performed By: #### M G, RFP, BMP, GFR #### [place] [address] RBC 4.31 10 6/mcL Normal 4.10-5.30 [facility] MAIN Comment on above: Performed By: #### M G, RFP, BMP, GFR #### [place] [address] WBC 8.3 10 3/mcL Normal 4.5-10.8 [facility] MAIN Comment on above: Performed By: #### M G, RFP, BMP, GFR #### [place] [address] RFPon 03-14-2025 Albumin Level 2.5 G/dL Low 3.2-4.8 [facility] MAIN Comment on above: Performed By: #### M G, RFP, BMP, GFR #### [place] [address] BUN/Creatinine Ratio 52.9 ratio High 10.0-22.0 [facility] MAIN Comment on above: Performed By: #### M G, RFP, BMP, GFR #### [address] [address] Calcium [Mass/Vol] 8.5 mg/dL Low 8.7-10.4 [facility] MAIN Comment on above: Performed By: #### M G, RFP, BMP, GFR #### [address] [address] Chloride [Moles/Vol] 113 mmol/L High 98-110 [facility] MAIN Comment on above: Performed By: #### M G, RFP, BMP, GFR #### [address] [address] CO2 [Moles/Vol] 22 mmol/L Normal 22-32 [facility] MAIN Comment on above: Performed By: #### M G, RFP, BMP, GFR #### [address] [address] Creatinine [Mass/Vol] 1.57 mg/dL High 0.50-1.20 [facility] MAIN Comment on above: Result Comment: Test ing performed on [employer] analyzer using enzymatic creatinine methodology. Performed By: #### M G, RFP, BMP, GFR #### [address] [address] Electrolyte Balance 12.0 mEq/L Normal 4.0-15.0 [facility] MAIN Comment on above: Performed By: #### M G, RFP, BMP, GFR #### [address] [address] Glucose [Mass/Vol] 346 mg/dL High 82-115 [facility] MAIN Comment on above: Performed By: #### M G, RFP, BMP, GFR #### [address] [address] Phosphate [Mass/Vol] 2.8 mg/dL Normal 2.4-5.1 [facility] MAIN Comment on above: Performed By: #### M G, RFP, BMP, GFR #### [address] [address] Potassium [Moles/Vol] 4.2 mmol/L Normal 3.5-5.0 [facility] MAIN Comment on above: Performed By: #### M G, RFP, BMP, GFR #### [facility] [address] [place] [address] Sodium [Moles/Vol] 147 mmol/L High 136-145 [facility] MAIN Comment on above: Performed By: #### M G, RFP, BMP, GFR #### [facility] [address] [place] [address] Urea nitrogen [Mass/Vol] 83.0 mg/dL High 8.0-22.0 [facility] MAIN Comment on above: Performed By: #### M G, RFP, BMP, GFR #### [facility] [address] [place] [address] XR CHEST 1 VIEWon 03-14-2025 XR CHEST [...] 03/14/2025 4:20:34 PM Ordering Provider: BISHNU SALAMANCA [facility] MAIN .GFRon 03-13-2025 Estimated Glomerular Filtration Rate 41 ml/min/1.73sqm [facility] MAIN Comment on above: Result Comment: [...] C BC, GFR, MORPH, RFP, DIFF #### [address] [address] BMPon 03-13-2025 BUN/Creatinine Ratio 49.6 ratio High 10.0-22.0 [facility] MAIN Comment on above: Performed By: #### C BC, GFR, MORPH, RFP, DIFF #### [address] [address] Calcium [Mass/Vol] 8.4 mg/dL Low 8.7-10.4 [facility] MAIN Comment on above: Performed By: #### C BC, GFR, MORPH, RFP, DIFF #### [address] [address] Chloride [Moles/Vol] 113 mmol/L High 98-110 [facility] MAIN Comment on above: Performed By: #### C BC, GFR, MORPH, RFP, DIFF #### [address] [address] CO2 [Moles/Vol] 23 mmol/L Normal 22-32 [facility] MAIN Comment on above: Performed By: #### C BC, GFR, MORPH, RFP, DIFF #### [address] [address] Creatinine [Mass/Vol] 1.35 mg/dL High 0.50-1.20 [facility] MAIN Comment on above: Result Comment: Test ing performed on [employer] analyzer using enzymatic creatinine methodology. Performed By: #### C BC, GFR, MORPH, RFP, DIFF #### [address] [address] Electrolyte Balance 11.0 mEq/L Normal 4.0-15.0 [facility] MAIN Comment on above: Performed By: #### C BC, GFR, MORPH, RFP, DIFF #### [address] [address] Glucose [Mass/Vol] 306 mg/dL High 82-115 [facility] MAIN Comment on above: Performed By: #### C BC, GFR, MORPH, RFP, DIFF #### [address] [address] Potassium [Moles/Vol] 3.9 mmol/L Normal 3.5-5.0 [facility] MAIN Comment on above: Performed By: #### C BC, GFR, MORPH, RFP, DIFF #### [address] [address] Sodium [Moles/Vol] 147 mmol/L High 136-145 [facility] MAIN Comment on above: Performed By: #### C BC, GFR, MORPH, RFP, DIFF #### [address] [address] Urea nitrogen [Mass/Vol] 67.0 mg/dL High 8.0-22.0 [facility] MAIN Comment on above: Performed By: #### C BC, GFR, MORPH, RFP, DIFF #### [address] [address] .Auto Diffon 03-12-2025 Basophil, Absolute 0.1 10 3/mcL Normal 0.0-0.3 [facility] MAIN Comment on above: Performed By: #### C BC, GFR, MORPH, RFP, DIFF #### [address] [address] Basophils/100 WBC (Bld) 0.7 % Normal 0.0-2.[address] [facility] MAIN Comment on above: Performed By: #### C BC, GFR, MORPH, RFP, DIFF #### [address] [address] Eosinophil, Absolute 0.2 10 3/mcL Normal 0.0-0.7 [facility] MAIN Comment on above: Performed By: #### C BC, GFR, MORPH, RFP, DIFF #### [address] [address] Eosinophils/100 WBC (Bld) 2.9 % Normal 0.0-6.0 [facility] MAIN Comment on above: Performed By: #### C BC, GFR, MORPH, RFP, DIFF #### [address] [address] Lymphocyte, Absolute 1.0 10 3/mcL Normal 0.9-4.3 [facility] MAIN Comment on above: Performed By: #### C BC, GFR, MORPH, RFP, DIFF #### [facility] [address] [place] [address] Lymphocytes/100 WBC (Bld) 12.1 % Low 20.0-40.0 [facility] MAIN Comment on above: Performed By: #### C BC, GFR, MORPH, RFP, DIFF #### [address] [address] Monocyte, Absolute 1.1 10 3/mcL Normal 0.1-1.4 [facility] MAIN Comment on above: Performed By: #### C BC, GFR, MORPH, RFP, DIFF #### [address] [address] Monocytes/100 WBC (Bld) 14.2 % High 2.0-13.[address] [facility] MAIN Comment on above: Performed By: #### C BC, GFR, MORPH, RFP, DIFF #### [address] [address] Neutrophils/100 WBC (Bld) 70.1 % Normal 50.0-75.0 [facility] MAIN Comment on above: Performed By: #### C BC, GFR, MORPH, RFP, DIFF #### [address] [address] .GFRon 03-12-2025 Estimated Glomerular Filtration Rate 43 ml/min/1.73sqm Normal [facility] MAIN Comment on above: Result Comment: Stages [...] C BC, GFR, MORPH, RFP, DIFF #### [address] [address] .NEUABSon 03-12-2025 Neutrophil, Absolute 5.6 10 3/mcL Normal 2.3-8.1 [facility] MAIN Comment on above: Performed By: #### C BC, GFR, MORPH, RFP, DIFF #### [place] [id number] BMPon 03-12-2025 BUN/Creatinine Ratio 49.6 ratio High 10.0-22.0 [facility] MAIN Comment on above: Performed By: #### C BC, GFR, MORPH, RFP, DIFF #### [place] [address] Calcium [Mass/Vol] 8.2 mg/dL Low 8.7-10.4 [facility] MAIN Comment on above: Performed By: #### C BC, GFR, MORPH, RFP, DIFF #### [place] [address] Chloride [Moles/Vol] 112 mmol/L High 98-110 [facility] MAIN Comment on above: Performed By: #### C BC, GFR, MORPH, RFP, DIFF #### [place] [address] CO2 [Moles/Vol] 21 mmol/L Low 22-32 [facility] MAIN Comment on above: Performed By: #### C BC, GFR, MORPH, RFP, DIFF #### [place] [address] Creatinine [Mass/Vol] 1.29 mg/dL High 0.50-1.20 [facility] MAIN Comment on above: Result Comment: Test ing performed on [employer] analyzer using enzymatic creatinine methodology. Performed By: #### C BC, GFR, MORPH, RFP, DIFF #### [place] [address] Electrolyte Balance 13.0 mEq/L Normal 4.0-15.0 [facility] MAIN Comment on above: Performed By: #### C BC, GFR, MORPH, RFP, DIFF #### [address] [address] Glucose [Mass/Vol] 317 mg/dL High 82-115 [facility] MAIN Comment on above: Performed By: #### C BC, GFR, MORPH, RFP, DIFF #### [address] [address] Potassium [Moles/Vol] 3.9 mmol/L Normal 3.5-5.0 [facility] MAIN Comment on above: Performed By: #### C BC, GFR, MORPH, RFP, DIFF #### [address] [address] Sodium [Moles/Vol] 146 mmol/L High 136-145 [facility] MAIN Comment on above: Performed By: #### C BC, GFR, MORPH, RFP, DIFF #### [place] [id number] Urea nitrogen [Mass/Vol] 64.0 mg/dL High 8.0-22.0 [facility] MAIN Comment on above: Performed By: #### C BC, GFR, MORPH, RFP, DIFF #### [address] [address] CBCon 03-12-2025 Erythrocyte distribution width (RBC) [Ratio] 22.3 % High 11.5-15.5 [facility] MAIN Comment on above: Performed By: #### C BC, GFR, MORPH, RFP, DIFF #### [address] [address] Hematocrit (Bld) [Volume fraction] 31.5 % Low 34.0-46.0 [facility] MAIN Comment on above: Performed By: #### C BC, GFR, MORPH, RFP, DIFF #### [address] [address] Hgb 9.8 G/dL Low 12.0-16.0 [facility] MAIN Comment on above: Performed By: #### C BC, GFR, MORPH, RFP, DIFF #### [address] [address] MCH (RBC) [Entitic mass] 22.5 pg Low 27.0-33.0 [facility] MAIN Comment on above: Performed By: #### C BC, GFR, MORPH, RFP, DIFF #### [address] [address] MCHC 31.1 G/dL Low 32.0-36.0 [facility] MAIN Comment on above: Performed By: #### C BC, GFR, MORPH, RFP, DIFF #### [address] [address] MCV (RBC) [Entitic vol] 72.3 fL Low 80.0-99.[address] [facility] MAIN Comment on above: Performed By: #### C BC, GFR, MORPH, RFP, DIFF #### [address] [address] Platelet 190 10 3/mcL Normal 150-450 [facility] MAIN Comment on above: Performed By: #### C BC, GFR, MORPH, RFP, DIFF #### [address] [address] Platelet mean volume (Bld) [Entitic vol] 9.2 fL Normal 6.6-10.5 [facility] MAIN Comment on above: Performed By: #### C BC, GFR, MORPH, RFP, DIFF #### [address] [address] RBC 4.36 10 6/mcL Normal 4.10-5.30 [facility] MAIN Comment on above: Performed By: #### C BC, GFR, MORPH, RFP, DIFF #### [address] [address] WBC 8.0 10 3/mcL Normal 4.5-10.8 [facility] MAIN Comment on above: Performed By: #### C BC, GFR, MORPH, RFP, DIFF #### [address] [address] XR CHEST 1 VIEWon 03-12-2025 XR CHEST [...] Date: 03/12/2025 9:38:23 AM Ordering Provider: BISHNU SALAMANCA [facility] MAIN .GFRon 03-11-2025 Estimated Glomerular Filtration Rate 43 ml/min/1.73sqm [facility] MAIN Comment on above: Result Comment: [...] #### M G, RFP, BMP, GFR #### [address] [address] BMPon 03-11-2025 BUN/Creatinine Ratio 47.3 ratio High 10.0-22.0 [facility] MAIN Comment on above: Performed By: #### M G, RFP, BMP, GFR #### [address] [address] Calcium [Mass/Vol] 7.8 mg/dL Low 8.7-10.4 [facility] MAIN Comment on above: Performed By: #### M G, RFP, BMP, GFR #### [address] [address] Chloride [Moles/Vol] 110 mmol/L Normal 98-110 [facility] MAIN Comment on above: Performed By: #### M G, RFP, BMP, GFR #### [address] [address] CO2 [Moles/Vol] 23 mmol/L Normal 22-32 [facility] MAIN Comment on above: Performed By: #### M G, RFP, BMP, GFR #### [address] [address] Creatinine [Mass/Vol] 1.29 mg/dL High 0.50-1.20 [facility] Comment on above: Result Comment: Test ing performed on [employer] analyzer using enzymatic creatinine methodology. Performed By: #### M G, RFP, BMP, GFR #### [address] [address] Electrolyte Balance 10.0 mEq/L Normal 4.0-15.0 [facility] Comment on above: Performed By: #### M G, RFP, BMP, GFR #### [address] [address] Glucose [Mass/Vol] 371 mg/dL High 82-115 [facility] Comment on above: Performed By: #### M G, RFP, BMP, GFR #### [address] [address] Potassium [Moles/Vol] 3.4 mmol/L Low 3.5-5.0 [facility] Comment on above: Performed By: #### M G, RFP, BMP, GFR #### [address] [address] Sodium [Moles/Vol] 143 mmol/L Normal 136-145 [facility] Comment on above: Performed By: #### M G, RFP, BMP, GFR #### [address] [address] Urea nitrogen [Mass/Vol] 61.0 mg/dL High 8.0-22.0 [facility] Comment on above: Performed By: #### M G, RFP, BMP, GFR #### [address] [address] MGon 03-11-2025 Magnesium [Mass/Vol] 1.8 mg/dL Normal 1.6-2.4 [facility] Comment on above: Performed By: #### M G, RFP, BMP, GFR #### [address] [address] RFPon 03-11-2025 Albumin Level 2.4 G/dL Low 3.2-4.8 [facility] MA[facility] Comment on above: Performed By: #### M G, RFP, BMP, GFR #### [address] [address] Phosphate [Mass/Vol] 2.4 mg/dL Normal 2.4-5.1 [facility] Comment on above: Performed By: #### M G, RFP, BMP, GFR #### [address] [address] .GFRon 03-10-2025 Estimated Glomerular Filtration Rate 41 ml/min/1.73sqm Normal [facility] Comment on above: Result Comment: Stages [...] Performed By: #### G FR, RFP #### [address] [address] BMPon 03-10-2025 BUN/Creatinine Ratio 45.1 ratio High 10.0-22.0 [facility] Comment on above: Performed By: #### G FR, RFP #### [address] [address] Calcium [Mass/Vol] 8.2 mg/dL Low 8.7-10.4 [facility] Comment on above: Performed By: #### G FR, RFP #### [address] [address] Chloride [Moles/Vol] 114 mmol/L High 98-110 [facility] Comment on above: Performed By: #### G FR, RFP #### [address] [address] CO2 [Moles/Vol] 24 mmol/L Normal 22-32 [facility] Comment on above: Performed By: #### G FR, RFP #### [address] [address] Creatinine [Mass/Vol] 1.33 mg/dL High 0.50-1.20 [facility] Comment on above: Result Comment: Test ing performed on [employer] analyzer using enzymatic creatinine methodology. Performed By: #### G FR, RFP #### [address] [address] Electrolyte Balance 11.0 mEq/L Normal 4.0-15.0 [facility] Comment on above: Performed By: #### G FR, RFP #### [address] [address] Glucose [Mass/Vol] 309 mg/dL High 82-115 [facility] Comment on above: Performed By: #### G FR, RFP #### [address] [address] Potassium [Moles/Vol] 3.2 mmol/L Low 3.5-5.0 [facility] Comment on above: Performed By: #### G FR, RFP #### [address] [address] Sodium [Moles/Vol] 149 mmol/L High 136-145 [facility] Comment on above: Performed By: #### G FR, RFP #### [address] [address] Urea nitrogen [Mass/Vol] 60.0 mg/dL High 8.0-22.0 [facility] Comment on above: Performed By: #### G FR, RFP #### [address] [address] MGon 03-10-2025 Magnesium [Mass/Vol] 1.7 mg/dL Normal 1.6-2.4 [facility] Comment on above: Performed By: #### G FR, RFP #### [address] [address] PHOSon 03-10-2025 Phosphate [Mass/Vol] 1.1 mg/dL Critically abnormal 2.4-5.1 [facility] Comment on above: Order Comment: vrb- called critical Phos to RYNE Slade 03/10/2025 04:02:07 EDT SAS Performed By: #### M G, RFP, BMP, GFR #### [address] [address] .GFRon 03-09-2025 Estimated Glomerular Filtration Rate 42 ml/min/1.73sqm Normal [facility] Comment on above: Result Comment: Stages [...] C BC, GFR, MORPH, RFP, DIFF #### [address] [address] BMPon 03-09-2025 BUN/Creatinine Ratio 37.4 ratio High 10.0-22.0 [facility] Comment on above: Performed By: #### C BC, GFR, MORPH, RFP, DIFF #### [address] [address] Calcium [Mass/Vol] 8.8 mg/dL Normal 8.7-10.4 [facility] Comment on above: Performed By: #### C BC, GFR, MORPH, RFP, DIFF #### [address] [address] Chloride [Moles/Vol] 117 mmol/L High 98-110 [facility] MA[facility] Comment on above: Performed By: #### C BC, GFR, MORPH, RFP, DIFF #### [address] [address] CO2 [Moles/Vol] 28 mmol/L Normal 22-32 [facility] Comment on above: Performed By: #### C BC, GFR, MORPH, RFP, DIFF #### [address] [address] Creatinine [Mass/Vol] 1.31 mg/dL High 0.50-1.20 [facility] Comment on above: Result Comment: Test ing performed on [employer] analyzer using enzymatic creatinine methodology. Performed By: #### C BC, GFR, MORPH, RFP, DIFF #### [place] [address] Electrolyte Balance 8.0 mEq/L Normal 4.0-15.0 [facility] Comment on above: Performed By: #### C BC, GFR, MORPH, RFP, DIFF #### [place] [phone] Glucose [Mass/Vol] 256 mg/dL High 82-115 [facility] MAIN Comment on above: Performed By: #### C BC, GFR, MORPH, RFP, DIFF #### [place] [address] Potassium [Moles/Vol] 3.5 mmol/L Normal 3.5-5.0 [facility] Comment on above: Performed By: #### C BC, GFR, MORPH, RFP, DIFF #### [place] [phone] Sodium [Moles/Vol] 153 mmol/L High 136-145 [facility] Comment on above: Performed By: #### C BC, GFR, MORPH, RFP, DIFF #### [place] [phone] Urea nitrogen [Mass/Vol] 49.0 mg/dL High 8.0-22.0 [facility] Comment on above: Performed By: #### C BC, GFR, MORPH, RFP, DIFF #### [address] [address] .Auto Diffon 03-08-2025 Basophil, Absolute 0.1 10 3/mcL Normal 0.0-0.3 [facility] MA[facility] Comment on above: Performed By: #### C BC, GFR, MORPH, RFP, DIFF #### [address] [address] Basophils/100 WBC (Bld) 0.9 % Normal 0.0-2.[address] [facility] MAIN Comment on above: Performed By: #### C BC, GFR, MORPH, RFP, DIFF #### [address] [address] Eosinophil, Absolute 0.2 10 3/mcL Normal 0.0-0.7 [facility] MAIN Comment on above: Performed By: #### C BC, GFR, MORPH, RFP, DIFF #### [address] [address] Eosinophils/100 WBC (Bld) 2.2 % Normal 0.0-6.0 [facility] Comment on above: Performed By: #### C BC, GFR, MORPH, RFP, DIFF #### [address] [address] Lymphocyte, Absolute 0.7 10 3/mcL Low 0.9-4.3 [facility] Comment on above: Performed By: #### C BC, GFR, MORPH, RFP, DIFF #### [address] [address] Lymphocytes/100 WBC (Bld) 7.3 % Low 20.0-40.0 [facility] Comment on above: Performed By: #### C BC, GFR, MORPH, RFP, DIFF #### [address] [address] Monocyte, Absolute 0.7 10 3/mcL Normal 0.1-1.4 [facility] MA[facility] Comment on above: Performed By: #### C BC, GFR, MORPH, RFP, DIFF #### [address] [address] Monocytes/100 WBC (Bld) 6.7 % Normal 2.0-13.[address] [facility] MA[facility] Comment on above: Performed By: #### C BC, GFR, MORPH, RFP, DIFF #### [address] [address] Neutrophils/100 WBC (Bld) 82.9 % High 50.0-75.0 [facility] Comment on above: Performed By: #### C BC, GFR, MORPH, RFP, DIFF #### [address] [address] .GFRon 03-08-2025 Estimated Glomerular Filtration Rate 40 ml/min/1.73sqm Normal [facility] MA[facility] Comment on above: Result Comment: Stages [...] C BC, GFR, MORPH, RFP, DIFF #### [address] [address] .NEUABSon 03-08-2025 Neutrophil, Absolute 8.4 10 3/mcL High 2.3-8.1 [facility] MA[facility] Comment on above: Performed By: #### C BC, GFR, MORPH, RFP, DIFF #### [place] [address] Basic Metabolic Profile (BMP )on 03-08-2025 BUN Normal 4-19 [facility] Comment on above: Result Comment: Canc elled via OM: Order cancelled - Patient discharged Performed By: #### L 500.2500, L100.0100 ####[facility] [address] [place], [address] BUN/CRE Normal 10-20 [facility] Comment on above: Result Comment: Canc elled via OM: Order cancelled - Patient discharged Performed By: #### L 500.2500, L100.0100 ####[facility] [address] [place], [address] Calcium Normal 7.6-11.0 [facility] Comment on above: Result Comment: Canc elled via OM: Order cancelled - Patient discharged Performed By: #### L 500.2500, L100.0100 ####[facility] [address] [place], [address] CL Normal 98-108 [facility] Comment on above: Result Comment: Canc elled via OM: Order cancelled - Patient discharged Performed By: #### L 500.2500, L100.0100 ####[facility] [address] [place], [address] CO2 Normal 21.0-32.0 [facility] Comment on above: Result Comment: Canc elled via OM: Order cancelled - Patient discharged Performed By: #### L 500.2500, L100.0100 ####[facility] [address] [place], [address] CREAT,SERUM Normal 0.70-1.20 [facility] Comment on above: Result Comment: Canc elled via OM: Order cancelled - Patient discharged Performed By: #### L 500.2500, L100.0100 ####[facility] [address] [place], [address] eGFR Normal >60 [facility] Comment on above: Result Comment: Canc elled via OM: Order cancelled - Patient discharged Performed By: #### L 500.2500, L100.0100 ####[facility] [address] [place], [address] GAP Normal 5-15 [facility] Comment on above: Result Comment: Canc elled via OM: Order cancelled - Patient discharged Performed By: #### L 500.2500, L100.0100 ####[facility] [address] [place], [address] GLU Normal 70-99 [facility] Comment on above: Result Comment: Canc elled via OM: Order cancelled - Patient discharged Performed By: #### L 500.2500, L100.0100 ####[facility] [address] [place], [address] Potassium Normal 3.3-5.1 [facility] Comment on above: Result Comment: Canc elled via OM: Order cancelled - Patient discharged Performed By: #### L 500.2500, L100.0100 ####[facility] [address] [place], [address] Basic Metabolic Profile (BMP) Normal 133-145 [facility] Comment on above: Result Comment: Canc elled via OM: Order cancelled - Patient discharged Performed By: #### L 500.2500, L100.0100 ####[facility] [address] [place], [address] CBCon 03-08-2025 Erythrocyte distribution width (RBC) [Ratio] 22.3 % High 11.5-15.5 [facility] Comment on above: Performed By: #### C BC, GFR, MORPH, RFP, DIFF #### [address] [address] Hematocrit (Bld) [Volume fraction] 31.9 % Low 34.0-46.0 [facility] Comment on above: Performed By: #### C BC, GFR, MORPH, RFP, DIFF #### [address] [address] Hgb 9.9 G/dL Low 12.0-16.0 [facility] Comment on above: Performed By: #### C BC, GFR, MORPH, RFP, DIFF #### [address] [address] MCH (RBC) [Entitic mass] 22.6 pg Low 27.0-33.0 [facility] Comment on above: Performed By: #### C BC, GFR, MORPH, RFP, DIFF #### [address] [address] MCHC 31.1 G/dL Low 32.0-36.0 [facility] Comment on above: Performed By: #### C BC, GFR, MORPH, RFP, DIFF #### [address] [address] MCV (RBC) [Entitic vol] 72.5 fL Low 80.0-99.0 A [facility] Comment on above: Performed By: #### C BC, GFR, MORPH, RFP, DIFF #### [address] [address] Platelet 228 10 3/mcL Normal 150-450 [facility] Comment on above: Performed By: #### C BC, GFR, MORPH, RFP, DIFF #### [address] [address] Platelet mean volume (Bld) [Entitic vol] 8.5 fL Normal 6.6-10.5 [facility] Comment on above: Performed By: #### C BC, GFR, MORPH, RFP, DIFF #### [address] [address] RBC 4.41 10 6/mcL Normal 4.10-5.30 [facility] Comment on above: Performed By: #### C BC, GFR, MORPH, RFP, DIFF #### [address] [address] WBC 10.1 10 3/mcL Normal 4.5-10.8 [facility] Comment on above: Performed By: #### C BC, GFR, MORPH, RFP, DIFF #### [address] [address] CBC W/Diff, Automatedon 02-25 Absolute Neut Normal 2.0-7.7 [facility] Comment on above: Result Comment: Canc elled via OM: Order cancelled - Patient discharged Performed By: #### L 500.2500, L100.0100 ####[facility] [address] [place], [address] HCT Normal 37-47 [facility] Comment on above: Result Comment: Canc elled via OM: Order cancelled - Patient discharged Performed By: #### L 500.2500, L100.0100 ####[facility] [address] [place], [address] HGB Normal 12.0-15.0 [facility] Comment on above: Result Comment: Canc elled via OM: Order cancelled - Patient discharged Performed By: #### L 500.2500, L100.0100 ####[facility] [address] [place], [address] MCH Normal 27.0-32.0 [facility] Comment on above: Result Comment: Canc elled via OM: Order cancelled - Patient discharged Performed By: #### L 500.2500, L100.0100 ####[facility] [address] [place], [address] MCHC Normal 32-36 [facility] Comment on above: Result Comment: Canc elled via OM: Order cancelled - Patient discharged Performed By: #### L 500.2500, L100.0100 ####[facility] [address] [place], [address] MCV Normal 81-99 [facility] Comment on above: Result Comment: Canc elled via OM: Order cancelled - Patient discharged Performed By: #### L 500.2500, L100.0100 ####[facility] [address] [place], [address] NEUT% Normal 47-70 [facility] Comment on above: Result Comment: Canc elled via OM: Order cancelled - Patient discharged Performed By: #### L 500.2500, L100.0100 ####[facility] [address] [place], [address] PLT Normal 150-450 [facility] Comment on above: Result Comment: Canc elled via OM: Order cancelled - Patient discharged Performed By: #### L 500.2500, L100.0100 ####[facility] [address] [place], [address] RBC Normal 4.2-5.4 [facility] Comment on above: Result Comment: Canc elled via OM: Order cancelled - Patient discharged Performed By: #### L 500.2500, L100.0100 ####[facility] [address] [place], [address] RDW CV Normal 11.6-14.6 [facility] Comment on above: Result Comment: Canc elled via OM: Order cancelled - Patient discharged Performed By: #### L 500.2500, L100.0100 ####[facility] [address] [place], [address] RDW SD Normal 35.1-43.9 [facility] Comment on above: Result Comment: Canc elled via OM: Order cancelled - Patient discharged Performed By: #### L 500.2500, L100.0100 ####[facility] [address] [place], [address] WBC Normal 4.4-11.0 [facility] Comment on above: Result Comment: Canc elled via OM: Order cancelled - Patient discharged Performed By: #### L 500.2500, L100.0100 ####[facility] [address] [place], [address] CMPon 03-08-2025 Albumin Level 2.6 G/dL Low 3.2-4.8 [facility] Comment on above: Performed By: #### C BC, GFR, MORPH, RFP, DIFF #### [address] [address] Albumin/Globulin [Mass ratio] 0.7 {ratio} Low 0.9-1.6 [facility] Comment on above: Performed By: #### C BC, GFR, MORPH, RFP, DIFF #### [address] [address] ALP [Catalytic activity/Vol] 57 U/L Normal 38-126 [facility] Comment on above: Performed By: #### C BC, GFR, MORPH, RFP, DIFF #### [address] [address] ALT/SGPT <7 Low 10-49 [facility] Comment on above: Performed By: #### C BC, GFR, MORPH, RFP, DIFF #### [address] [address] AST [Catalytic activity/Vol] 11 U/L Normal 8-34 [facility] Comment on above: Performed By: #### C BC, GFR, MORPH, RFP, DIFF #### [address] [address] Bili Total 0.30 mg/dL Normal 0.20-1.20 [facility] Comment on above: Result Comment: Use of this assay is not recommended for patients undergoing treatment with eltrombopag due to the potential for falsely elevated results. Performed By: #### C BC, GFR, MORPH, RFP, DIFF #### [address] [address] BUN/Creatinine Ratio 34.6 ratio High 10.0-22.0 [facility] Comment on above: Performed By: #### C BC, GFR, MORPH, RFP, DIFF #### [address] [address] Calcium [Mass/Vol] 8.9 mg/dL Normal 8.7-10.4 [facility] Comment on above: Performed By: #### C BC, GFR, MORPH, RFP, DIFF #### [address] [address] Chloride [Moles/Vol] 116 mmol/L High 98-110 [facility] Comment on above: Performed By: #### C BC, GFR, MORPH, RFP, DIFF #### [address] [address] CO2 [Moles/Vol] 25 mmol/L Normal 22-32 [facility] Comment on above: Performed By: #### C BC, GFR, MORPH, RFP, DIFF #### [address] [address] Creatinine [Mass/Vol] 1.36 mg/dL High 0.50-1.20 [facility] Comment on above: Result Comment: Test ing performed on [employer] analyzer using enzymatic creatinine methodology. Performed By: #### C BC, GFR, MORPH, RFP, DIFF #### [address] [address] Electrolyte Balance 13.0 mEq/L Normal 4.0-15.0 [facility] Comment on above: Performed By: #### C BC, GFR, MORPH, RFP, DIFF #### [address] [address] Globulin 3.6 G/dL Normal 2.5-4.2 [facility] Comment on above: Performed By: #### C BC, GFR, MORPH, RFP, DIFF #### [address] [address] Glucose [Mass/Vol] 213 mg/dL High 82-115 [facility] Comment on above: Performed By: #### C BC, GFR, MORPH, RFP, DIFF #### [address] [address] Potassium [Moles/Vol] 3.3 mmol/L Low 3.5-5.0 [facility] Comment on above: Performed By: #### C BC, GFR, MORPH, RFP, DIFF #### [address] [address] Sodium [Moles/Vol] 154 mmol/L High 136-145 [facility] Comment on above: Performed By: #### C BC, GFR, MORPH, RFP, DIFF #### [address] [address] Total Protein 6.2 G/dL Normal 5.7-8.2 [facility] Comment on above: Performed By: #### C BC, GFR, MORPH, RFP, DIFF #### [address] [address] Urea nitrogen [Mass/Vol] 47.0 mg/dL High 8.0-22.0 [facility] Comment on above: Performed By: #### C BC, GFR, MORPH, RFP, DIFF #### [address] [address] XR CHEST 1 VIEWon 03-08-2025 XR CHEST [...] 03/08/2025 7:31:39 AM Ordering Provider: ELKE MARQUEZ [facility] MAIN Basic Metabolic Profile (BMP )on 03-07-2025 BUN/CRE 33.2 RATIO High 10-20 [facility] Comment on above: Performed By: #### L 100.0100, L500.2500 ####[facility] [address] [place], [address] Calcium [Mass/Vol] 9.2 mg/dL Normal 7.6-11.0 [facility] Comment on above: Performed By: #### L 100.0100, L500.2500 ####[facility] [address] [place], [address] Chloride [Moles/Vol] 114 mmol/L High 98-108 [facility] Comment on above: Performed By: #### L 100.0100, L500.2500 ####[facility] [address] [place], [address] CO2 [Moles/Vol] 19.9 mmol/L Low 21.0-32.0 [facility] Comment on above: Performed By: #### L 100.0100, L500.2500 ####[facility] [address] [place], [address] Creatinine [Mass/Vol] 1.46 mg/dL High 0.70-1.20 [facility] Comment on above: Performed By: #### L 100.0100, L500.2500 ####[facility] [address] [place], [address] ECRCL 38.38 ml/min Low 50-250 [facility] Comment on above: Performed By: #### L 100.0100, L500.2500 ####[facility] [address] [place], [address] GAP 16 High 5-15 [facility] Comment on above: Performed By: #### L 100.0100, L500.2500 ####[facility] [address] [place], [address] GFR/1.73 sq M.predicted among non-blacks MDRD (S/P/Bld) [Vol rate/Area] 37 mL/min/{1.73_m2} Low >60 [facility] Comment on above: Result Comment: mL/m in/1.73m2 CKD-EPI Creatinine Equation (2020) Performed By: #### L 100.0100, L500.2500 ####[facility] [address] [place], [address] Glucose [Mass/Vol] 167 mg/dL High 70-99 [facility] Comment on above: Performed By: #### L 100.0100, L500.2500 ####[facility] [address] [place], [address] Potassium [Moles/Vol] 3.3 mmol/L Normal 3.3-5.1 [facility] Comment on above: Performed By: #### L 100.0100, L500.2500 ####[facility] [address] [place], [address] Sodium [Moles/Vol] 150 mmol/L High 133-145 [facility] Comment on above: Performed By: #### L 100.0100, L500.2500 ####[facility] [address] [place], [address] Urea nitrogen [Mass/Vol] 49 mg/dL High 4-19 [facility] Comment on above: Performed By: #### L 100.0100, L500.2500 ####[facility] [address] [place], [address] Bedside Glucoseon 03-07-2024 FINGERSTICK GLU 144 mg/dL High 74-106 [facility] Comment on above: Result Comment: VI GEMENT OF PATIENT CARE PER NURSING PROTOCOL Performed By: #### L 501.080 ####[facility] [address] [place], [address] FINGERSTICK GLU 143 mg/dL High 74-106 [facility] Comment on above: Result Comment: VI GEMENT OF PATIENT CARE PER NURSING PROTOCOL Performed By: #### L 501.080 ####[facility] [address] [place], [address] CBC W/Diff, Automatedon 02-25 Anisocytosis Ql (Bld) 2+ Normal [facility] Comment on above: Performed By: #### L 100.0100, L500.2500 ####[facility] [address] [place], [address] OVALOCYTE 2+ Normal [facility] Comment on above: Performed By: #### L 100.0100, L500.2500 ####[facility] [address] [place], [address] POLYCHROMASIA 1+ Normal [facility] Comment on above: Performed By: #### L 100.0100, L500.2500 ####[facility] [address] [place], [address] SCHISTOCYTES RARE Normal [facility] Comment on above: Performed By: #### L 100.0100, L500.2500 ####[facility] [address] [place], [address] PLT EST ADEQUATE Normal ADEQ [facility] Comment on above: Performed By: #### L 100.0100, L500.2500 ####[facility] [address] [place], [address] SMEAR COMMENT SCANNED Normal [facility] Comment on above: Performed By: #### L 100.0100, L500.2500 ####[facility] [address] [place], [address] Discharge Instructionon 02-25 Discharge Instruction Normal [facility] Basic Metabolic Profile (BMP )on 03-06-2025 BUN/CRE 33.2 RATIO High 10- [facility] Comment on above: Performed By: #### L 500.2500, L100.0100 ####[facility] [address] [place], [address] Calcium [Mass/Vol] 9.3 mg/dL Normal 7.6-11.0 [facility] Comment on above: Performed By: #### L 500.2500, L100.0100 ####[facility] [address] [place], [address] Chloride [Moles/Vol] 108 mmol/L Normal 98-108 [facility] Comment on above: Performed By: #### L 500.2500, L100.0100 ####[facility] [address] [place], [address] CO2 [Moles/Vol] 20.3 mmol/L Low 21.0-32.0 [facility] Comment on above: Performed By: #### L 500.2500, L100.0100 ####[facility] [address] [place], [address] Creatinine [Mass/Vol] 1.54 mg/dL High 0.70-1.20 [facility] Comment on above: Performed By: #### L 500.2500, L100.0100 ####[facility] [address] [place], [address] ECRCL 36.21 ml/min Low 50-250 [facility] Comment on above: Performed By: #### L 500.2500, L100.0100 ####[facility] [address] [place], [address] GAP 15 Normal 5-15 [facility] Comment on above: Performed By: #### L 500.2500, L100.0100 ####[facility] [address] [place], [address] GFR/1.73 sq M.predicted among non-blacks MDRD (S/P/Bld) [Vol rate/Area] 35 mL/min/{1.73_m2} Low >60 [facility] Comment on above: Result Comment: mL/m in/1.73m2 CKD-EPI Creatinine Equation (2020) Performed By: #### L 500.2500, L100.0100 ####[facility] [address] [place], [address] Glucose [Mass/Vol] 199 mg/dL High 70-99 [facility] Comment on above: Performed By: #### L 500.2500, L100.0100 ####[facility] [address] [place], [address] Potassium [Moles/Vol] 3.7 mmol/L Normal 3.3-5.1 [facility] Comment on above: Performed By: #### L 500.2500, L100.0100 ####[facility] [address] [place], [address] Sodium [Moles/Vol] 144 mmol/L Normal 133-145 [facility] Comment on above: Performed By: #### L 500.2500, L100.0100 ####[facility] [address] [place], [address] Urea nitrogen [Mass/Vol] 51 mg/dL High 4-19 [facility] Comment on above: Performed By: #### L 500.2500, L100.0100 ####[facility] [address] [place], [address] Bedside Glucoseon 03-06-2024 FINGERSTICK GLU 150 mg/dL High 74-106 [facility] Comment on above: Result Comment: VI GEMENT OF PATIENT CARE PER NURSING PROTOCOL Performed By: #### L 501.080 ####[facility] [address] [place], [address] FINGERSTICK GLU 155 mg/dL High 74-106 [facility] Comment on above: Result Comment: VI GEMENT OF PATIENT CARE PER NURSING PROTOCOL Performed By: #### L 501.080 ####[facility] [address] [place], [address] FINGERSTICK GLU 158 mg/dL High 74-106 [facility] Comment on above: Result Comment: VI GEMENT OF PATIENT CARE PER NURSING PROTOCOL Performed By: #### L 501.080 ####[facility] [address] [place], [address] FINGERSTICK GLU 175 mg/dL High 74-106 [facility] Comment on above: Result Comment: VI GEMENT OF PATIENT CARE PER NURSING PROTOCOL Performed By: #### L 501.080 ####[facility] [address] [place], [address] FINGERSTICK GLU 187 mg/dL High 74-106 [facility] Comment on above: Result Comment: VI GEMENT OF PATIENT CARE PER NURSING PROTOCOL Performed By: #### L 501.080 ####[facility] [address] [place], [address] CBC W/Diff, Automatedon 02-25 Anisocytosis Ql (Bld) 2+ Normal [facility] Comment on above: Performed By: #### L 500.2500, L100.0100 ####[facility] [address] [place], [address] MICROCYTIC 2+ Normal [facility] Comment on above: Performed By: #### L 500.2500, L100.0100 ####[facility] [address] [place], [address] OVALOCYTE RARE Normal [facility] Comment on above: Performed By: #### L 500.2500, L100.0100 ####[facility] [address] [place], [address] SMEAR COMMENT SCANNED Normal [facility] Comment on above: Performed By: #### L 500.2500, L100.0100 ####[facility] [address] [place], [address] EGD Reporton 03-06-2025 EGD Report Normal [facility] Small Bowel Series Onlyon Small Bowel Series Only Normal [facility] Basic Metabolic Profile (BMP )on 03-05-2025 BUN/CRE 32.6 RATIO High 10-20 [facility] Comment on above: Performed By: #### L 100.0100, L500.2500 ####[facility] [address] [place], [address] Calcium [Mass/Vol] 9.3 mg/dL Normal 7.6-11.0 [facility] Comment on above: Performed By: #### L 100.0100, L500.2500 ####[facility] [address] [place], [address] Chloride [Moles/Vol] 104 mmol/L Normal 98-108 [facility] Comment on above: Performed By: #### L 100.0100, L500.2500 ####[facility] [address] [place], [address] CO2 [Moles/Vol] 18.4 mmol/L Low 21.0-32.0 [facility] Comment on above: Performed By: #### L 100.0100, L500.2500 ####[facility] [address] [place], [address] Creatinine [Mass/Vol] 1.52 mg/dL High 0.70-1.20 [facility] Comment on above: Performed By: #### L 100.0100, L500.2500 ####[facility] [address] [place], [address] ECRCL 36.68 ml/min Low 50-250 [facility] Comment on above: Performed By: #### L 100.0100, L500.2500 ####[facility] [address] [place], [address] GAP 20 High 5-15 [facility] Comment on above: Performed By: #### L 100.0100, L500.2500 ####[facility] [address] [place], [address] GFR/1.73 sq M.predicted among non-blacks MDRD (S/P/Bld) [Vol rate/Area] 35 mL/min/{1.73_m2} Low >60 [facility] Comment on above: Result Comment: mL/m in/1.73m2 CKD-EPI Creatinine Equation (2020) Performed By: #### L 100.0100, L500.2500 ####[facility] [address] [place], [address] Glucose [Mass/Vol] 170 mg/dL High 70-99 [facility] Comment on above: Performed By: #### L 100.0100, L500.2500 ####[facility] [address] [place], [address] Potassium [Moles/Vol] 3.8 mmol/L Normal 3.3-5.1 [facility] Comment on above: Performed By: #### L 100.0100, L500.2500 ####[facility] [address] [place], [address] Sodium [Moles/Vol] 143 mmol/L Normal 133-145 [facility] Comment on above: Performed By: #### L 100.0100, L500.2500 ####[facility] [address] [place], [address] Urea nitrogen [Mass/Vol] 50 mg/dL High 4-19 [facility] Comment on above: Performed By: #### L 100.0100, L500.2500 ####[facility] [address] [place], [address] Bedside Glucoseon 03-05-2025 FINGERSTICK GLU 179 mg/dL High 74-106 [facility] Comment on above: Result Comment: VI GEMENT OF PATIENT CARE PER NURSING PROTOCOL Performed By: #### L 501.080 ####[facility] [address] [place], [address] FINGERSTICK GLU 200 mg/dL High 74-106 [facility] Comment on above: Result Comment: VI GEMENT OF PATIENT CARE PER NURSING PROTOCOL Performed By: #### L 501.080 ####[facility] [address] [place], [address] FINGERSTICK GLU 132 mg/dL High 74-106 [facility] Comment on above: Result Comment: VI GEMENT OF PATIENT CARE PER NURSING PROTOCOL Performed By: #### L 501.080 ####[facility] [address] [place], [address] FINGERSTICK GLU 141 mg/dL High 74-106 [facility] Comment on above: Result Comment: VI GEMENT OF PATIENT CARE PER NURSING PROTOCOL Performed By: #### L 501.080 ####[facility] [address] [place], [address] CBC W/Diff, Automatedon 06-0 Anisocytosis Ql (Bld) 1+ Normal [facility] Comment on above: Performed By: #### L 100.0100, L500.2500 ####[facility] [address] [place], [address] Consultation - OB/GYNon -0 Consultation - MANAGER PIPELINE Normal [facility] Basic Metabolic Profile (BMP )on 03-04-2025 BUN/CRE 28.8 RATIO High 10-20 [facility] Comment on above: Performed By: #### L 500.2500, L100.0100 ####[facility] [address] [place], [address] Calcium [Mass/Vol] 9.2 mg/dL Normal 7.6-11.0 [facility] Comment on above: Performed By: #### L 500.2500, L100.0100 ####[facility] [address] [place], [address] Chloride [Moles/Vol] 103 mmol/L Normal 98-108 [facility] Comment on above: Performed By: #### L 500.2500, L100.0100 ####[facility] [address] [place], [address] CO2 [Moles/Vol] 21.1 mmol/L Normal 21.0-32.0 [facility] Comment on above: Performed By: #### L 500.2500, L100.0100 ####[facility] [address] [place], [address] Creatinine [Mass/Vol] 1.70 mg/dL High 0.70-1.20 [facility] Comment on above: Performed By: #### L 500.2500, L100.0100 ####[facility] [address] [place], [address] ECRCL 33.16 ml/min Low 50-250 [facility] Comment on above: Performed By: #### L 500.2500, L100.0100 ####[facility] [address] [place], [address] GAP 18 High 5-15 [facility] Comment on above: Performed By: #### L 500.2500, L100.0100 ####[facility] [address] [place], [address] GFR/1.73 sq M.predicted among non-blacks MDRD (S/P/Bld) [Vol rate/Area] 31 mL/min/{1.73_m2} Low >60 [facility] Comment on above: Result Comment: mL/m in/1.73m2 CKD-EPI Creatinine Equation (2020) Performed By: #### L 500.2500, L100.0100 ####[facility] [address] [place], [address] Glucose [Mass/Vol] 142 mg/dL High 70-99 [facility] Comment on above: Performed By: #### L 500.2500, L100.0100 ####[facility] [address] [place], [address] Potassium [Moles/Vol] 3.2 mmol/L Low 3.3-5.1 [facility] Comment on above: Performed By: #### L 500.2500, L100.0100 ####[facility] [address] [place], [address] Sodium [Moles/Vol] 142 mmol/L Normal 133-145 [facility] Comment on above: Performed By: #### L 500.2500, L100.0100 ####[facility] [address] [place], [address] Urea nitrogen [Mass/Vol] 49 mg/dL High 4-19 [facility] Comment on above: Performed By: #### L 500.2500, L100.0100 ####[facility] [address] [place], [address] Bedside Glucoseon --2024 FINGERSTICK GLU 143 mg/dL High 74-106 [facility] Comment on above: Result Comment: Dr Shawn padilla FollowedMANAGEMENT OF PATIENT CARE PER NURSING PROTOCOL Performed By: #### L 501.080 ####[facility] [address] [place], [address] FINGERSTICK GLU 158 mg/dL High 74-106 [facility] Comment on above: Result Comment: Insu neo GivenMANAGEMENT OF PATIENT CARE PER NURSING PROTOCOL Performed By: #### L 501.080 ####[facility] [address] [place], [address] FINGERSTICK GLU 141 mg/dL High 74-106 [facility] Comment on above: Result Comment: VI GEMENT OF PATIENT CARE PER NURSING PROTOCOL Performed By: #### L 501.080 ####[facility] [address] [place], [address] CBC W/Diff, Automatedon 06-0 Absolute Lymph 1.12 X10 3/uL Normal 0.83-4.51 [facility] Comment on above: Performed By: #### L 500.2500, L100.0100 ####[facility] [address] [place], [address] Absolute Neut 7.0 X10 3/uL Normal 2.0-7.7 [facility] Comment on above: Performed By: #### L 500.2500, L100.0100 ####[facility] [address] [place], [address] Basophils/100 WBC (Bld) 1.5 % High 0-1 [facility] Comment on above: Performed By: #### L 500.2500, L100.0100 ####[facility] [address] [place], [address] Eosinophils/100 WBC (Bld) 3.5 % Normal 0-5 [facility] Comment on above: Performed By: #### L 500.2500, L100.0100 ####[facility] [address] [place], [address] Erythrocyte distribution width (RBC) [Ratio] 19.7 % High 11.6-14.6 [facility] Comment on above: Performed By: #### L 500.2500, L100.0100 ####[facility] [address] [place], [address] Hematocrit (Bld) [Volume fraction] 31.1 % Low 37-47 [facility] Comment on above: Performed By: #### L 500.2500, L100.0100 ####[facility] [address] [place], [address] Hemoglobin (Bld) [Mass/Vol] 9.2 g/dL Low 12.0-15.0 [facility] Comment on above: Performed By: #### L 500.2500, L100.0100 ####[facility] [address] [place], [address] IG% 0.400 Normal 0.0-0.9 [facility] Comment on above: Result Comment: IG% - Immature Granulocytes (promyelocytes, myelocytes andmetamyelocytes) > 1% indicates that a LEFT SHIFT is Present. Performed By: #### L 500.2500, L100.0100 ####[facility] [address] [place], [address] Lymphocytes/100 WBC (Bld) 11.8 % Low 19-41 [facility] Comment on above: Performed By: #### L 500.2500, L100.0100 ####[facility] [address] [place], [address] MCH (RBC) [Entitic mass] 21.5 pg Low 27.0-32.0 [facility] Comment on above: Performed By: #### L 500.2500, L100.0100 ####[facility] [address] [place], [address] MCHC (RBC) [Mass/Vol] 29.6 g/dL Low 32-36 [facility] Comment on above: Performed By: #### L 500.2500, L100.0100 ####[facility] [address] [place], [address] MCV (RBC) [Entitic vol] 72.8 fL Low 81-99 [facility] Comment on above: Performed By: #### L 500.2500, L100.0100 ####[facility] [address] [place], [address] Monocytes/100 WBC (Bld) 9.2 % Normal 0-10 [facility] Comment on above: Performed By: #### L 500.2500, L100.0100 ####[facility] [address] [place], [address] Neutrophils/100 WBC (Bld) 73.6 % High 47-70 [facility] Comment on above: Performed By: #### L 500.2500, L100.0100 ####[facility] [address] [place], [address] Nucleated RBC (Bld) [#/Vol] 0 10*3/uL Normal 0-5 [facility] Comment on above: Performed By: #### L 500.2500, L100.0100 ####[facility] [address] [place], [address] Platelet mean volume (Bld) [Entitic vol] 9.2 fL Normal 6.2-12.0 [facility] Comment on above: Performed By: #### L 500.2500, L100.0100 ####[facility] [address] [place], [address] Platelets (Bld) [#/Vol] 330 10*3/uL Normal 150-450 [facility] Comment on above: Performed By: #### L 500.2500, L100.0100 ####[facility] [address] [place], [address] RBC (Bld) [#/Vol] 4.27 10*6/uL Normal 4.2-5.4 [facility] Comment on above: Performed By: #### L 500.2500, L100.0100 ####[facility] [address] [place], [address] RDW SD 50.4 fl High 35.1-43.9 [facility] Comment on above: Performed By: #### L 500.2500, L100.0100 ####[facility] [address] [place], [address] WBC (Bld) [#/Vol] 9.5 10*3/uL Normal 4.4-11.0 [facility] Comment on above: Performed By: #### L 500.2500, L100.0100 ####[facility] [address] [place], [address] Fibrinogenon 03-04-2025 FIBRINOGEN 590 mg/dl High 203-444 [facility] Comment on above: Performed By: #### L 300.4700, L300.3900, L300.4310 ####[facility] [address] [place], [address] Partial Thromboplast Timeon 03-04-2025 aPTT Coag (Bld) [Time] 21.7 s Low 24.1-36.2 [facility] Comment on above: Performed By: #### L 300.4700, L300.3900, L300.4310 ####[facility] [address] [place], [address] Prothrombin Time w/INRon INR Coag (PPP) [Relative time] 1.5 {INR} Normal [facility] Comment on above: Performed By: #### L 300.4700, L300.3900, L300.4310 ####[facility] [address] [place], [address] PT Coag (PPP) [Time] 18.7 s High 11.7-14.9 [facility] Comment on above: Performed By: #### L 300.4700, L300.3900, L300.4310 ####[facility] [address] [place], [address] Transvaginal Non-on 03-04-2025 Transvaginal Non- Normal [facility] Basic Metabolic Profile (BMP )on 03-03-2025 BUN/CRE 25.0 RATIO High 10-20 [facility] Comment on above: Performed By: #### L 500.2500, L100.0100 ####[facility] [address] [place], [address] Calcium [Mass/Vol] 9.2 mg/dL Normal 7.6-11.0 [facility] Comment on above: Performed By: #### L 500.2500, L100.0100 ####[facility] [address] [place], [address] Chloride [Moles/Vol] 101 mmol/L Normal 98-108 [facility] Comment on above: Performed By: #### L 500.2500, L100.0100 ####[facility] [address] [place], [address] CO2 [Moles/Vol] 18.1 mmol/L Low 21.0-32.0 [facility] Comment on above: Performed By: #### L 500.2500, L100.0100 ####[facility] [address] [place], [address] Creatinine [Mass/Vol] 1.78 mg/dL High 0.70-1.20 [facility] Comment on above: Performed By: #### L 500.2500, L100.0100 ####[facility] [address] [place], [address] ECRCL 31.67 ml/min Low 50-250 [facility] Comment on above: Performed By: #### L 500.2500, L100.0100 ####[facility] [address] [place], [address] GAP 20 High 5-15 [facility] Comment on above: Performed By: #### L 500.2500, L100.0100 ####[facility] [address] [place], [address] GFR/1.73 sq M.predicted among non-blacks MDRD (S/P/Bld) [Vol rate/Area] 29 mL/min/{1.73_m2} Low >60 [facility] Comment on above: Result Comment: mL/m in/1.73m2 CKD-EPI Creatinine Equation (2020) Performed By: #### L 500.2500, L100.0100 ####[facility] [address] [place], [address] Glucose [Mass/Vol] 159 mg/dL High 70-99 [facility] [facility] Comment on above: Performed By: #### L 500.2500, L100.0100 ####[facility] [address] [place], [address] Potassium [Moles/Vol] 3.3 mmol/L Normal 3.3-5.1 [facility] Comment on above: Performed By: #### L 500.2500, L100.0100 ####[facility] [address] [place], [address] Sodium [Moles/Vol] 140 mmol/L Normal 133-145 [facility] Comment on above: Performed By: #### L 500.2500, L100.0100 ####[facility] [address] [place], [address] Urea nitrogen [Mass/Vol] 45 mg/dL High 4-19 [facility] Comment on above: Performed By: #### L 500.2500, L100.0100 ####[facility] [address] [place], [address] Bedside Glucoseon --2024 FINGERSTICK GLU 162 mg/dL High 74-106 [facility] Comment on above: Result Comment: VI GEMENT OF PATIENT CARE PER NURSING PROTOCOL Performed By: #### L 501.080 ####[facility] [address] [place], [address] FINGERSTICK GLU 165 mg/dL High 74-106 [facility] Comment on above: Result Comment: Dr Shawn padilla FollowedInsulin GivenMANAGEMENT OF PATIENT CARE PER NURSING PROTOCOL Performed By: #### L 501.080 ####[facility] [address] [place], [address] FINGERSTICK GLU 145 mg/dL High 74-106 [facility] Comment on above: Result Comment: VI GEMENT OF PATIENT CARE PER NURSING PROTOCOL Performed By: #### L 501.080 ####[facility] [address] [place], [address] CBC W/Diff, Automatedon 06-0 Absolute Lymph 1.20 X10 3/uL Normal 0.83-4.51 [facility] Comment on above: Performed By: #### L 500.2500, L100.0100 ####[facility] [address] [place], [address] Absolute Neut 7.5 X10 3/uL Normal 2.0-7.7 [facility] Comment on above: Performed By: #### L 500.2500, L100.0100 ####[facility] [address] [place], [address] Basophils/100 WBC (Bld) 1.0 % Normal 0-1 [facility] Comment on above: Performed By: #### L 500.2500, L100.0100 ####[facility] [address] [place], [address] Eosinophils/100 WBC (Bld) 4.1 % Normal 0-5 [facility] Comment on above: Performed By: #### L 500.2500, L100.0100 ####[facility] [address] [place], [address] Erythrocyte distribution width (RBC) [Ratio] 19.5 % High 11.6-14.6 [facility] Comment on above: Performed By: #### L 500.2500, L100.0100 ####[facility] [address] [place], [address] Hematocrit (Bld) [Volume fraction] 30.3 % Low 37-47 [facility] Comment on above: Performed By: #### L 500.2500, L100.0100 ####[facility] [address] [place], [address] Hemoglobin (Bld) [Mass/Vol] 8.9 g/dL Low 12.0-15.0 [facility] Comment on above: Performed By: #### L 500.2500, L100.0100 ####[facility] [address] [place], [address] IG% 0.500 Normal 0.0-0.9 [facility] Comment on above: Result Comment: IG% - Immature Granulocytes (promyelocytes, myelocytes andmetamyelocytes) > 1% indicates that a LEFT SHIFT is Present. Performed By: #### L 500.2500, L100.0100 ####[facility] [address] [place], [address] Lymphocytes/100 WBC (Bld) 11.7 % Low 19-41 [facility] Comment on above: Performed By: #### L 500.2500, L100.0100 ####[facility] [address] [place], [address] MCH (RBC) [Entitic mass] 21.8 pg Low 27.0-32.0 [facility] Comment on above: Performed By: #### L 500.2500, L100.0100 ####[facility] [address] [place], [address] MCHC (RBC) [Mass/Vol] 29.4 g/dL Low 32-36 [facility] Comment on above: Performed By: #### L 500.2500, L100.0100 ####[facility] [address] [place], [address] MCV (RBC) [Entitic vol] 74.3 fL Low 81-99 [facility] Comment on above: Performed By: #### L 500.2500, L100.0100 ####[facility] [address] [place], [address] Monocytes/100 WBC (Bld) 10.0 % Normal 0-10 [facility] Comment on above: Performed By: #### L 500.2500, L100.0100 ####[facility] [address] [place], [address] Neutrophils/100 WBC (Bld) 72.7 % High 47-70 [facility] Comment on above: Performed By: #### L 500.2500, L100.0100 ####[facility] [address] [place], [address] Nucleated RBC (Bld) [#/Vol] 0 10*3/uL Normal 0-5 [facility] Comment on above: Performed By: #### L 500.2500, L100.0100 ####[facility] [address] [place], [address] Platelet mean volume (Bld) [Entitic vol] 9.1 fL Normal 6.2-12.0 [facility] Comment on above: Performed By: #### L 500.2500, L100.0100 ####[facility] [address] [place], [address] Platelets (Bld) [#/Vol] 365 10*3/uL Normal 150-450 [facility] Comment on above: Performed By: #### L 500.2500, L100.0100 ####[facility] [address] [place], [address] RBC (Bld) [#/Vol] 4.08 10*6/uL Low 4.2-5.4 [facility] Comment on above: Performed By: #### L 500.2500, L100.0100 ####[facility] [address] [place], [address] RDW SD 51.2 fl High 35.1-43.9 [facility] Comment on above: Performed By: #### L 500.2500, L100.0100 ####[facility] [address] [place], [address] WBC (Bld) [#/Vol] 10.3 10*3/uL Normal 4.4-11.0 [facility] Comment on above: Performed By: #### L 500.2500, L100.0100 ####[facility] [address] [place], [address] ENTERIC PATHOGEN PANEL STOOL on 03-03-2025 EP PANEL Normal [facility] Comment on above: Performed By: #### M 100.6796, M100.0605, M100.637, M100.6795 ####[facility] [address] [place], [address] HH, Hemoglobin AND Hematocri ton 03-03-2025 Hematocrit (Bld) [Volume fraction] 34.1 % Low 37-47 [facility] Comment on above: Performed By: #### L 100.0600 ####[facility] [address] [place], [address] Hemoglobin (Bld) [Mass/Vol] 10.0 g/dL Low 12.0-15.0 [facility] Comment on above: Performed By: #### L 100.0600 ####[facility] [address] [place], [address] Abdomen/Pel W ORAL Cont Only on 03-02-2025 Abdomen/Pel W ORAL Cont Only Normal [facility] Basic Metabolic Profile (BMP )on 03-02-2025 BUN/CRE 21.3 RATIO High 10-20 [facility] Comment on above: Performed By: #### L 500.2500, L100.0100 ####[facility] [address] [place], [address] Calcium [Mass/Vol] 9.2 mg/dL Normal 7.6-11.0 [facility] Comment on above: Performed By: #### L 500.2500, L100.0100 ####[facility] [address] [place], [address] Chloride [Moles/Vol] 101 mmol/L Normal 98-108 [facility] Comment on above: Performed By: #### L 500.2500, L100.0100 ####[facility] [address] [place], [address] CO2 [Moles/Vol] 15.4 mmol/L Low 21.0-32.0 [facility] Comment on above: Performed By: #### L 500.2500, L100.0100 ####[facility] [address] [place], [address] Creatinine [Mass/Vol] 1.67 mg/dL High 0.70-1.20 [facility] Comment on above: Performed By: #### L 500.2500, L100.0100 ####[facility] [address] [place], [address] ECRCL 33.77 ml/min Low 50-250 [facility] Comment on above: Performed By: #### L 500.2500, L100.0100 ####[facility] [address] [place], [address] GAP 25 High 5-15 [facility] Comment on above: Performed By: #### L 500.2500, L100.0100 ####[facility] [address] [place], [address] GFR/1.73 sq M.predicted among non-blacks MDRD (S/P/Bld) [Vol rate/Area] 32 mL/min/{1.73_m2} Low >60 [facility] Comment on above: Result Comment: mL/m in/1.73m2 CKD-EPI Creatinine Equation (2020) Performed By: #### L 500.2500, L100.0100 ####[facility] [address] [place], [address] Glucose [Mass/Vol] 144 mg/dL High 70-99 [facility] Comment on above: Performed By: #### L 500.2500, L100.0100 ####[facility] [address] [place], [address] Potassium [Moles/Vol] 3.6 mmol/L Normal 3.3-5.1 [facility] Comment on above: Performed By: #### L 500.2500, L100.0100 ####[facility] [address] [place], [address] Sodium [Moles/Vol] 142 mmol/L Normal 133-145 [facility] Comment on above: Performed By: #### L 500.2500, L100.0100 ####[facility] [address] [place], [address] Urea nitrogen [Mass/Vol] 36 mg/dL High 4-19 [facility] Comment on above: Performed By: #### L 500.2500, L100.0100 ####[facility] [address] [place], [address] Bedside Glucoseon 03-02-2025 FINGERSTICK GLU 165 mg/dL High 74-106 [facility] Comment on above: Result Comment: VI GEMENT OF PATIENT CARE PER NURSING PROTOCOL Performed By: #### L 501.080 ####[facility] [address] [place], [address] FINGERSTICK GLU 167 mg/dL High 74-106 [facility] Comment on above: Result Comment: VI GEMENT OF PATIENT CARE PER NURSING PROTOCOL Performed By: #### L 501.080 ####[facility] [address] [place], [address] FINGERSTICK GLU 139 mg/dL High 74-106 [facility] Comment on above: Result Comment: VI GEMENT OF PATIENT CARE PER NURSING PROTOCOL Performed By: #### L 501.080 ####[facility] [address] [place], [address] CBC W/Diff, Automatedon 06-0 Absolute Lymph 1.02 X10 3/uL Normal 0.83-4.51 [facility] Comment on above: Performed By: #### L 500.2500, L100.0100 ####[facility] [address] [place], [address] Absolute Neut 8.8 X10 3/uL High 2.0-7.7 [facility] Comment on above: Performed By: #### L 500.2500, L100.0100 ####[facility] [address] [place], [address] Basophils/100 WBC (Bld) 1.0 % Normal 0-1 [facility] [place] Comment on above: Performed By: #### L 500.2500, L100.0100 ####[facility] [address] [place], [address] Eosinophils/100 WBC (Bld) 1.9 % Normal 0-5 [facility] Comment on above: Performed By: #### L 500.2500, L100.0100 ####[facility] [address] [place], [address] Erythrocyte distribution width (RBC) [Ratio] 19.6 % High 11.6-14.6 [facility] Comment on above: Performed By: #### L 500.2500, L100.0100 ####[facility] [address] [place], [address] Hematocrit (Bld) [Volume fraction] 30.6 % Low 37-47 [facility] Comment on above: Performed By: #### L 500.2500, L100.0100 ####[facility] [address] [place], [address] Hemoglobin (Bld) [Mass/Vol] 8.9 g/dL Low 12.0-15.0 [facility] Comment on above: Performed By: #### L 500.2500, L100.0100 ####[facility] [address] [place], [address] IG% 0.500 Normal 0.0-0.9 [facility] Comment on above: Result Comment: IG% - Immature Granulocytes (promyelocytes, myelocytes andmetamyelocytes) > 1% indicates that a LEFT SHIFT is Present. Performed By: #### L 500.2500, L100.0100 ####[facility] [address] [place], [address] Lymphocytes/100 WBC (Bld) 9.2 % Low 19-41 [facility] Comment on above: Performed By: #### L 500.2500, L100.0100 ####[facility] [address] [place], [address] MCH (RBC) [Entitic mass] 21.6 pg Low 27.0-32.0 [facility] Comment on above: Performed By: #### L 500.2500, L100.0100 ####[facility] [address] [place], [address] MCHC (RBC) [Mass/Vol] 29.1 g/dL Low 32-36 [facility] Comment on above: Performed By: #### L 500.2500, L100.0100 ####[facility] [address] [place], [address] MCV (RBC) [Entitic vol] 74.3 fL Low 81-99 [facility] Comment on above: Performed By: #### L 500.2500, L100.0100 ####[facility] [address] [place], [address] Monocytes/100 WBC (Bld) 8.5 % Normal 0-10 [facility] Comment on above: Performed By: #### L 500.2500, L100.0100 ####[facility] [address] [place], [address] Neutrophils/100 WBC (Bld) 78.9 % High 47-70 [facility] Comment on above: Performed By: #### L 500.2500, L100.0100 ####[facility] [address] [place], [address] Nucleated RBC (Bld) [#/Vol] 0 10*3/uL Normal 0-5 [facility] Comment on above: Performed By: #### L 500.2500, L100.0100 ####[facility] [address] [place], [address] Platelet mean volume (Bld) [Entitic vol] 9.5 fL Normal 6.2-12.0 [facility] Comment on above: Performed By: #### L 500.2500, L100.0100 ####[facility] [address] [place], [address] Platelets (Bld) [#/Vol] 416 10*3/uL Normal 150-450 [facility] Comment on above: Performed By: #### L 500.2500, L100.0100 ####[facility] [address] [place], [address] RBC (Bld) [#/Vol] 4.12 10*6/uL Low 4.2-5.4 [facility] Comment on above: Performed By: #### L 500.2500, L100.0100 ####[facility] [address] [place], [address] RDW SD 52.1 fl High 35.1-43.9 [facility] Comment on above: Performed By: #### L 500.2500, L100.0100 ####[facility] [address] [place], [address] WBC (Bld) [#/Vol] 11.1 10*3/uL High 4.4-11.0 [facility] Comment on above: Performed By: #### L 500.2500, L100.0100 ####[facility] [address] [place], [address] CDIFF (PCR)on 03-02-2025 CDIFF Normal [facility] Comment on above: Performed By: #### M 100.6796, M100.0605, M100.637, M100.6795 ####[facility] [address] [place], [address] Clostridium Diff Toxin/Agon 03-02-2025 CDIFF (EIA) Normal [facility] Comment on above: Performed By: #### M 100.6796, M100.0605, M100.637, M100.6795 ####[facility] [address] [place], [address] Stool Lactoferrin/WBCon 06-0 WBCST Is the patient receiving laxatives? N New/unexplained onset of 3 or more stools in past 24 hrs? Y Normal Reference Range = Negative Fecal WBC Lactoferrin A Positive: Fecal WBC Lactoferrin present A Normal [facility] Comment on above: Performed By: #### M 100.6796, M100.0605, M100.637, M100.6795 ####[facility] [address] [place], [address] Abdomen Single View (Portabl e)on 03-01-2025 Abdomen Single View (Portable) Normal [facility] Basic Metabolic Profile (BMP )on 03-01-2025 BUN/CRE 24.0 RATIO High 10-20 [facility] Comment on above: Performed By: #### L 500.2500, L503.6005 ####[facility] [address] [place], [address] Calcium [Mass/Vol] 8.6 mg/dL Normal 7.6-11.0 [facility] Comment on above: Performed By: #### L 500.2500, L503.6005 ####[facility] [address] [place], [address] Chloride [Moles/Vol] 101 mmol/L Normal 98-108 [facility] Comment on above: Performed By: #### L 500.2500, L503.6005 ####[facility] [address] [place], [address] CO2 [Moles/Vol] 12.3 mmol/L Low 21.0-32.0 [facility] Comment on above: Performed By: #### L 500.2500, L503.6005 ####[facility] [address] [place], [address] Creatinine [Mass/Vol] 2.21 mg/dL High 0.70-1.20 [facility] Comment on above: Performed By: #### L 500.2500, L503.6005 ####[facility] [address] [place], [address] ECRCL 25.59 ml/min Low 50-250 [facility] Comment on above: Performed By: #### L 500.2500, L503.6005 ####[facility] [address] [place], [address] GAP 29 High 5-15 [facility] Comment on above: Performed By: #### L 500.2500, L503.6005 ####[facility] [address] [place], [address] GFR/1.73 sq M.predicted among non-blacks MDRD (S/P/Bld) [Vol rate/Area] 23 mL/min/{1.73_m2} Low >60 [facility] Comment on above: Result Comment: mL/m in/1.73m2 CKD-EPI Creatinine Equation (2020) Performed By: #### L 500.2500, L503.6005 ####[facility] [address] [place], [address] Glucose [Mass/Vol] 160 mg/dL High 70-99 [facility] Comment on above: Performed By: #### L 500.2500, L503.6005 ####[facility] [address] [place], [address] Potassium [Moles/Vol] 3.7 mmol/L Normal 3.3-5.1 [facility] Comment on above: Performed By: #### L 500.2500, L503.6005 ####[facility] [address] [place], [address] Sodium [Moles/Vol] 142 mmol/L Normal 133-145 [facility] Comment on above: Performed By: #### L 500.2500, L503.6005 ####[facility] [address] [place], [address] Urea nitrogen [Mass/Vol] 53 mg/dL High 4-19 [facility] Comment on above: Performed By: #### L 500.2500, L503.6005 ####[facility] [address] [place], [address] BUN/CRE 24.5 RATIO High 10-20 [facility] Comment on above: Performed By: #### L 100.0100, L500.2500 ####[facility] [address] [place], [address] Calcium [Mass/Vol] 8.5 mg/dL Normal 7.6-11.0 [facility] Comment on above: Performed By: #### L 100.0100, L500.2500 ####[facility] [address] [place], [address] Chloride [Moles/Vol] 101 mmol/L Normal 98-108 [facility] Comment on above: Performed By: #### L 100.0100, L500.2500 ####[facility] [address] [place], [address] CO2 [Moles/Vol] 10.8 mmol/L Low 21.0-32.0 [facility] Comment on above: Performed By: #### L 100.0100, L500.2500 ####[facility] [address] [place], [address] Creatinine [Mass/Vol] 2.11 mg/dL High 0.70-1.20 [facility] Comment on above: Performed By: #### L 100.0100, L500.2500 ####[facility] [address] [place], [address] ECRCL 26.80 ml/min Low 50-250 [facility] Comment on above: Performed By: #### L 100.0100, L500.2500 ####[facility] [address] [place], [address] GAP 30 High 5-15 [facility] Comment on above: Performed By: #### L 100.0100, L500.2500 ####[facility] [address] [place], [address] GFR/1.73 sq M.predicted among non-blacks MDRD (S/P/Bld) [Vol rate/Area] 24 mL/min/{1.73_m2} Low >60 [facility] Comment on above: Result Comment: mL/m in/1.73m2 CKD-EPI Creatinine Equation (2020) Performed By: #### L 100.0100, L500.2500 ####[facility] [address] [place], [address] Glucose [Mass/Vol] 165 mg/dL High 70-99 [facility] Comment on above: Performed By: #### L 100.0100, L500.2500 ####[facility] [address] [place], [address] Potassium [Moles/Vol] 3.8 mmol/L Normal 3.3-5.1 [facility] Comment on above: Performed By: #### L 100.0100, L500.2500 ####[facility] [address] [place], [address] Sodium [Moles/Vol] 142 mmol/L Normal 133-145 [facility] Comment on above: Performed By: #### L 100.0100, L500.2500 ####[facility] [address] [place], [address] Urea nitrogen [Mass/Vol] 52 mg/dL High 4-19 [facility] Comment on above: Performed By: #### L 100.0100, L500.2500 ####[facility] [address] [place], [address] Bedside Glucoseon 03-01-2024 FINGERSTICK GLU 154 mg/dL High 74-106 [facility] Comment on above: Result Comment: VI MONTEJO OF PATIENT CARE PER NURSING PROTOCOL Performed By: #### L 501.080 ####[facility] [address] [place], [address] CBC W/Diff, Automatedon Absolute Lymph 1.06 X10 3/uL Normal 0.83-4.51 [facility] Comment on above: Performed By: #### L 100.0100, L500.2500 ####[facility] [address] [place], [address] Absolute Neut 11.1 X10 3/uL High 2.0-7.7 [facility] Comment on above: Performed By: #### L 100.0100, L500.2500 ####[facility] [address] [place], [address] Basophils/100 WBC (Bld) 0.7 % Normal 0-1 [facility] Comment on above: Performed By: #### L 100.0100, L500.2500 ####[facility] [address] [place], [address] Eosinophils/100 WBC (Bld) 0.4 % Normal 0-5 [facility] Comment on above: Performed By: #### L 100.0100, L500.2500 ####[facility] [address] [place], [address] Erythrocyte distribution width (RBC) [Ratio] 19.2 % High 11.6-14.6 [facility] Comment on above: Performed By: #### L 100.0100, L500.2500 ####[facility] [address] [place], [address] Hematocrit (Bld) [Volume fraction] 30.4 % Low 37-47 [facility] Comment on above: Performed By: #### L 100.0100, L500.2500 ####[facility] [address] [place], [address] Hemoglobin (Bld) [Mass/Vol] 8.7 g/dL Low 12.0-15.0 [facility] Comment on above: Performed By: #### L 100.0100, L500.2500 ####[facility] [address] [place], [address] IG% 0.700 Normal 0.0-0.9 [facility] Comment on above: Result Comment: IG% - Immature Granulocytes (promyelocytes, myelocytes andmetamyelocytes) > 1% indicates that a LEFT SHIFT is Present. Performed By: #### L 100.0100, L500.2500 ####[facility] [address] [place], [address] Lymphocytes/100 WBC (Bld) 7.9 % Low 19-41 [facility] Comment on above: Performed By: #### L 100.0100, L500.2500 ####[facility] [address] [place], [address] MCH (RBC) [Entitic mass] 21.8 pg Low 27.0-32.0 [facility] Comment on above: Performed By: #### L 100.0100, L500.2500 ####[facility] [address] [place], [address] MCHC (RBC) [Mass/Vol] 28.6 g/dL Low 32-36 [facility] Comment on above: Performed By: #### L 100.0100, L500.2500 ####[facility] [address] [place], [address] MCV (RBC) [Entitic vol] 76.0 fL Low 81-99 [facility] [place] Comment on above: Performed By: #### L 100.0100, L500.2500 ####[facility] [address] [place], [address] Monocytes/100 WBC (Bld) 6.7 % Normal 0-10 [facility] Comment on above: Performed By: #### L 100.0100, L500.2500 ####[facility] [address] [place], [address] Neutrophils/100 WBC (Bld) 83.6 % High 47-70 [facility] Comment on above: Performed By: #### L 100.0100, L500.2500 ####[facility] [address] [place], [address] Nucleated RBC (Bld) [#/Vol] 0 10*3/uL Normal 0-5 [facility] Comment on above: Performed By: #### L 100.0100, L500.2500 ####[facility] [address] [place], [address] Platelet mean volume (Bld) [Entitic vol] 9.8 fL Normal 6.2-12.0 [facility] Comment on above: Performed By: #### L 100.0100, L500.2500 ####[facility] [address] [place], [address] Platelets (Bld) [#/Vol] 464 10*3/uL High 150-450 [facility] Comment on above: Performed By: #### L 100.0100, L500.2500 ####[facility] [address] [place], [address] RBC (Bld) [#/Vol] 4.00 10*6/uL Low 4.2-5.4 [facility] Comment on above: Performed By: #### L 100.0100, L500.2500 ####[facility] [address] [place], [address] RDW SD 52.8 fl High 35.1-43.9 [facility] Comment on above: Performed By: #### L 100.0100, L500.2500 ####[facility] [address] [place], [address] WBC (Bld) [#/Vol] 13.3 10*3/uL High 4.4-11.0 [facility] Comment on above: Performed By: #### L 100.0100, L500.2500 ####[facility] [address] [place], [address] Lactic Acidon 03-01-2025 Lactate [Moles/Vol] mmol/L Normal 0.0-2.0 [facility] Comment on above: Order Comment: Y Performed By: #### L 500.2500, L503.6005 ####[facility] [address] [place], [address] Basic Metabolic Profile (BMP )on 02-28-2025 BUN/CRE 27.8 RATIO High 10-20 [facility] Comment on above: Performed By: #### L 500.2500, L100.0100 ####[facility] [address] [place], [address] Calcium [Mass/Vol] 8.7 mg/dL Normal 7.6-11.0 [facility] Comment on above: Performed By: #### L 500.2500, L100.0100 ####[facility] [address] [place], [address] Chloride [Moles/Vol] 101 mmol/L Normal 98-108 [facility] Comment on above: Performed By: #### L 500.2500, L100.0100 ####[facility] [address] [place], [address] CO2 [Moles/Vol] 18.2 mmol/L Low 21.0-32.0 [facility] Comment on above: Performed By: #### L 500.2500, L100.0100 ####[facility] [address] [place], [address] Creatinine [Mass/Vol] 1.57 mg/dL High 0.70-1.20 [facility] Comment on above: Performed By: #### L 500.2500, L100.0100 ####[facility] [address] [place], [address] ECRCL 36.63 ml/min Low 50-250 [facility] Comment on above: Performed By: #### L 500.2500, L100.0100 ####[facility] [address] [place], [address] GAP 19 High 5-15 [facility] Comment on above: Performed By: #### L 500.2500, L100.0100 ####[facility] [address] [place], [address] GFR/1.73 sq M.predicted among non-blacks MDRD (S/P/Bld) [Vol rate/Area] 34 mL/min/{1.73_m2} Low >60 [facility] Comment on above: Result Comment: mL/m in/1.73m2 CKD-EPI Creatinine Equation (2020) Performed By: #### L 500.2500, L100.0100 ####[facility] [address] [place], [address] Glucose [Mass/Vol] 91 mg/dL Normal 70-99 [facility] Comment on above: Performed By: #### L 500.2500, L100.0100 ####[facility] [address] [place], [address] Potassium [Moles/Vol] 4.1 mmol/L Normal 3.3-5.1 [facility] Comment on above: Performed By: #### L 500.2500, L100.0100 ####[facility] [address] [place], [address] Sodium [Moles/Vol] 139 mmol/L Normal 133-145 [facility] Comment on above: Performed By: #### L 500.2500, L100.0100 ####[facility] [address] [place], [address] Urea nitrogen [Mass/Vol] 44 mg/dL High 4-19 [facility] Comment on above: Performed By: #### L 500.2500, L100.0100 ####[facility] [address] [place], [address] Bedside Glucoseon 02-28-2025 FINGERSTICK GLU 157 mg/dL High 74-106 [facility] Comment on above: Result Comment: VI GEMENT OF PATIENT CARE PER NURSING PROTOCOL Performed By: #### L 501.080 ####[facility] [address] [place], [address] FINGERSTICK GLU 115 mg/dL High 74-106 [facility] Comment on above: Result Comment: VI GEMENT OF PATIENT CARE PER NURSING PROTOCOL Performed By: #### L 501.080 ####[facility] [address] [place], [address] FINGERSTICK GLU 88 mg/dL Normal 74-106 [facility] Comment on above: Result Comment: VI GEMENT OF PATIENT CARE PER NURSING PROTOCOL Performed By: #### L 501.080 ####[facility] [address] [place], [address] FINGERSTICK GLU 96 mg/dL Normal 74-106 [facility] Comment on above: Result Comment: VI GEMENT OF PATIENT CARE PER NURSING PROTOCOL Performed By: #### L 501.080 ####[facility] [address] [place], [address] Blood Gases by [facility] 025 Base excess Calc (Bld) [Moles/Vol] -8 mmol/L Low -2 to +2 [facility] Comment on above: Order Comment: Resul ts manually entered by BRIAN and verified by EBOLESon 02/28/2025 @ 1538 Performed By: #### L 9000.0800 ####[facility] [address] [place], [address] CO2 [Moles/Vol] 19 mmol/L Normal [facility] Comment on above: Order Comment: Resul ts manually entered by BRIAN and verified by EBOLESon 02/28/2025 @ 1538 Performed By: #### L 9000.0800 ####[facility] [address] [place], [address] SO2 91 Low 95-99 [facility] Comment on above: Order Comment: Resul ts manually entered by BRIAN and verified by EBOLESon 02/28/2025 @ 1538 Performed By: #### L 9000.0800 ####[facility] [address] [place], [address] DANIEL TEST Positive Normal [facility] Comment on above: Order Comment: Resul ts manually entered by BRIAN and verified by EBOLESon 02/28/2025 @ 1538 Performed By: #### L 9000.0800 ####[facility] [address] [place], [address] Blood Gas Type ART Normal [facility] Comment on above: Order Comment: Resul ts manually entered by BRIAN and verified by EBOLESon 02/28/2025 @ 1538 Performed By: #### L 9000.0800 ####[facility] [address] [place], [address] Comment SBT X1 HR Normal [facility] Comment on above: Order Comment: Resul ts manually entered by BRINA and verified by EBOLESon 02/28/2025 @ 1538 Performed By: #### L 9000.0800 ####[facility] [address] [place], [address] FI02 21.0 Normal [facility] Comment on above: Order Comment: Resul ts manually entered by BRIAN and verified by EBOLESon 02/28/2025 @ 1538 Performed By: #### L 9000.0800 ####[facility] [address] [place], [address] HCO3 (Bld) [Moles/Vol] 17.8 mmol/L Low 22-26 [facility] Comment on above: Order Comment: Resul ts manually entered by BRIAN and verified by EBOLESon 02/28/2025 @ 1538 Performed By: #### L 9000.0800 ####[facility] [address] [place], [address] Mode SPONT Normal [facility] Comment on above: Order Comment: Resul ts manually entered by BRIAN and verified by EBOLESon 02/28/2025 @ 1538 Performed By: #### L 9000.0800 ####[facility] [address] [place], [address] pCO2 31.4 mmHg Low 35-45 [facility] Comment on above: Order Comment: Resul ts manually entered by BRIAN and verified by EBOLESon 02/28/2025 @ 1538 Performed By: #### L 9000.0800 ####[facility] [address] [place], [address] PEEP 5 Normal [facility] Comment on above: Order Comment: Resul ts manually entered by BRIAN and verified by EBOLESon 02/28/2025 @ 1538 Performed By: #### L 9000.0800 ####[facility] [address] [place], [address] pH (Bld) 7.36 [pH] Normal 7.35-7.45 [facility] Comment on above: Order Comment: Resul ts manually entered by BRIAN and verified by [employer]BC[employer]-Labson 02/28/2025 @ 1538 Performed By: #### L 9000.0800 ####[facility] [address] [place], [address] PO2 62 mmHG Low 75-100 [facility] Comment on above: Order Comment: Resul ts manually entered by BRIAN and verified by EBOLESon 02/28/2025 @ 1538 Performed By: #### L 9000.0800 ####[facility] [address] [place], [address] PS 5 Normal [facility] Comment on above: Order Comment: Resul ts manually entered by BRIAN and verified by [employer]son 02/28/2025 @ 1538 Performed By: #### L 9000.0800 ####[facility] [address] [place], [address] Results To NISHANT Normal [facility] Comment on above: Order Comment: Resul ts manually entered by BRIAN and verified by [employer]BC[employer]Labson 02/28/2025 @ 1538 Performed By: #### L 9000.0800 ####[facility] [address] [place], [address] SITE R RADIAL Normal [facility] Comment on above: Order Comment: Resul ts manually entered by BRIAN and verified by EBOLESon 02/28/2025 @ 1538 Performed By: #### L 9000.0800 ####[facility] [address] [place], [address] CBC W/Diff, Automatedon 06-0 Absolute Lymph 0.89 X10 3/uL Normal 0.83-4.51 [facility] Comment on above: Performed By: #### L 500.2500, L100.0100 ####[facility] [address] [place], [address] Absolute Neut 6.5 X10 3/uL Normal 2.0-7.7 [facility] Comment on above: Performed By: #### L 500.2500, L100.0100 ####[facility] [address] [place], [address] Basophils/100 WBC (Bld) 1.2 % High 0-1 [facility] [place] Comment on above: Performed By: #### L 500.2500, L100.0100 ####[facility] [address] [place], [address] Eosinophils/100 WBC (Bld) 2.0 % Normal 0-5 [facility] Comment on above: Performed By: #### L 500.2500, L100.0100 ####[facility] [address] [place], [address] Erythrocyte distribution width (RBC) [Ratio] 18.8 % High 11.6-14.6 [facility] Comment on above: Performed By: #### L 500.2500, L100.0100 ####[facility] [address] [place], [address] Hematocrit (Bld) [Volume fraction] 30.1 % Low 37-47 [facility] Comment on above: Performed By: #### L 500.2500, L100.0100 ####[facility] [address] [place], [address] Hemoglobin (Bld) [Mass/Vol] 8.8 g/dL Low 12.0-15.0 [facility] Comment on above: Performed By: #### L 500.2500, L100.0100 ####[facility] [address] [place], [address] IG% 0.500 Normal 0.0-0.9 [facility] Comment on above: Result Comment: IG% - Immature Granulocytes (promyelocytes, myelocytes andmetamyelocytes) > 1% indicates that a LEFT SHIFT is Present. Performed By: #### L 500.2500, L100.0100 ####[facility] [address] [place], [address] Lymphocytes/100 WBC (Bld) 10.5 % Low 19-41 [facility] Comment on above: Performed By: #### L 500.2500, L100.0100 ####[facility] [address] [place], [address] MCH (RBC) [Entitic mass] 21.8 pg Low 27.0-32.0 [facility] Comment on above: Performed By: #### L 500.2500, L100.0100 ####[facility] [address] [place], [address] MCHC (RBC) [Mass/Vol] 29.2 g/dL Low 32-36 [facility] Comment on above: Performed By: #### L 500.2500, L100.0100 ####[facility] [address] [place], [address] MCV (RBC) [Entitic vol] 74.5 fL Low 81-99 [facility] [place] Comment on above: Performed By: #### L 500.2500, L100.0100 ####[facility] [address] [place], [address] Monocytes/100 WBC (Bld) 9.0 % Normal 0-10 [facility] Comment on above: Performed By: #### L 500.2500, L100.0100 ####[facility] [address] [place], [address] Neutrophils/100 WBC (Bld) 76.8 % High 47-70 [facility] Comment on above: Performed By: #### L 500.2500, L100.0100 ####[facility] [address] [place], [address] Nucleated RBC (Bld) [#/Vol] 0 10*3/uL Normal 0-5 [facility] Comment on above: Performed By: #### L 500.2500, L100.0100 ####[facility] [address] [place], [address] Platelet mean volume (Bld) [Entitic vol] 9.6 fL Normal 6.2-12.0 [facility] Comment on above: Performed By: #### L 500.2500, L100.0100 ####[facility] [address] [place], [address] Platelets (Bld) [#/Vol] 399 10*3/uL Normal 150-450 [facility] Comment on above: Performed By: #### L 500.2500, L100.0100 ####[facility] [address] [place], [address] RBC (Bld) [#/Vol] 4.04 10*6/uL Low 4.2-5.4 [facility] Comment on above: Performed By: #### L 500.2500, L100.0100 ####[facility] [address] [place], [address] RDW SD 50.6 fl High 35.1-43.9 [facility] Comment on above: Performed By: #### L 500.2500, L100.0100 ####[facility] [address] [place], [address] WBC (Bld) [#/Vol] 8.5 10*3/uL Normal 4.4-11.0 [facility] Comment on above: Performed By: #### L 500.2500, L100.0100 ####[facility] [address] [place], [address] Basic Metabolic Profile (BMP )on 02-27-2025 BUN/CRE 33.3 RATIO High 10-20 [facility] Comment on above: Performed By: #### L 500.2500, L100.0100 ####[facility] [address] [place], [address] Calcium [Mass/Vol] 9.2 mg/dL Normal 7.6-11.0 [facility] Comment on above: Performed By: #### L 500.2500, L100.0100 ####[facility] [address] [place], [address] Chloride [Moles/Vol] 101 mmol/L Normal 98-108 [facility] Comment on above: Performed By: #### L 500.2500, L100.0100 ####[facility] [address] [place], [address] CO2 [Moles/Vol] 20.1 mmol/L Low 21.0-32.0 [facility] Comment on above: Performed By: #### L 500.2500, L100.0100 ####[facility] [address] [place], [address] Creatinine [Mass/Vol] 1.36 mg/dL High 0.70-1.20 [facility] Comment on above: Performed By: #### L 500.2500, L100.0100 ####[facility] [address] [place], [address] ECRCL 42.51 ml/min Low 50-250 [facility] Comment on above: Performed By: #### L 500.2500, L100.0100 ####[facility] [address] [place], [address] GAP 17 High 5-15 [facility] Comment on above: Performed By: #### L 500.2500, L100.0100 ####[facility] [address] [place], [address] GFR/1.73 sq M.predicted among non-blacks MDRD (S/P/Bld) [Vol rate/Area] 40 mL/min/{1.73_m2} Low >60 [facility] Comment on above: Result Comment: mL/m in/1.73m2 CKD-EPI Creatinine Equation (2020) Performed By: #### L 500.2500, L100.0100 ####[facility] [address] [place], [address] Glucose [Mass/Vol] 106 mg/dL High 70-99 [facility] Comment on above: Performed By: #### L 500.2500, L100.0100 ####[facility] [address] [place], [address] Potassium [Moles/Vol] 3.5 mmol/L Normal 3.3-5.1 [facility] Comment on above: Performed By: #### L 500.2500, L100.0100 ####[facility] [address] [place], [address] Sodium [Moles/Vol] 137 mmol/L Normal 133-145 [facility] Comment on above: Performed By: #### L 500.2500, L100.0100 ####[facility] [address] [place], [address] Urea nitrogen [Mass/Vol] 45 mg/dL High 4-19 [facility] Comment on above: Performed By: #### L 500.2500, L100.0100 ####[facility] [address] [place], [address] Bedside Glucoseon 02-27-2025 FINGERSTICK GLU 92 mg/dL Normal 74-106 [facility] Comment on above: Result Comment: VI MONTEJO OF PATIENT CARE PER NURSING PROTOCOL Performed By: #### L 501.080 ####[facility] [address] [place], [address] FINGERSTICK GLU 77 mg/dL Normal 74-106 [facility] Comment on above: Result Comment: VI GEMENT OF PATIENT CARE PER NURSING PROTOCOL Performed By: #### L 501.080 ####[facility] [address] [place], [address] FINGERSTICK GLU 88 mg/dL Normal 74-106 [facility] Comment on above: Result Comment: VI GEMENT OF PATIENT CARE PER NURSING PROTOCOL Performed By: #### L 501.080 ####[facility] [address] [place], [address] FINGERSTICK GLU 89 mg/dL Normal 74-106 [facility] Comment on above: Result Comment: VI GEMENT OF PATIENT CARE PER NURSING PROTOCOL Performed By: #### L 501.080 ####[facility] [address] [place], [address] FINGERSTICK GLU 86 mg/dL Normal 74-106 [facility] Comment on above: Result Comment: VI GEMENT OF PATIENT CARE PER NURSING PROTOCOL Performed By: #### L 501.080 ####[facility] [address] [place], [address] CBC W/Diff, Automatedon 06-0 3-2025 Absolute Lymph 1.18 X10 3/uL Normal 0.83-4.51 [facility] Comment on above: Performed By: #### L 500.2500, L100.0100 ####[facility] [address] [place], [address] Absolute Neut 4.8 X10 3/uL Normal 2.0-7.7 [facility] Comment on above: Performed By: #### L 500.2500, L100.0100 ####[facility] [address] [place], [address] Basophils/100 WBC (Bld) 1.0 % Normal 0-1 [facility] Comment on above: Performed By: #### L 500.2500, L100.0100 ####[facility] [address] [place], [address] Eosinophils/100 WBC (Bld) 2.5 % Normal 0-5 [facility] Comment on above: Performed By: #### L 500.2500, L100.0100 ####[facility] [address] [place], [address] Erythrocyte distribution width (RBC) [Ratio] 18.7 % High 11.6-14.6 [facility] Comment on above: Performed By: #### L 500.2500, L100.0100 ####[facility] [address] [place], [address] Hematocrit (Bld) [Volume fraction] 29.0 % Low 37-47 [facility] Comment on above: Performed By: #### L 500.2500, L100.0100 ####[facility] [address] [place], [address] Hemoglobin (Bld) [Mass/Vol] 8.6 g/dL Low 12.0-15.0 [facility] Comment on above: Performed By: #### L 500.2500, L100.0100 ####[facility] [address] [place], [address] IG% 0.400 Normal 0.0-0.9 [facility] Comment on above: Result Comment: IG% - Immature Granulocytes (promyelocytes, myelocytes andmetamyelocytes) > 1% indicates that a LEFT SHIFT is Present. Performed By: #### L 500.2500, L100.0100 ####[facility] [address] [place], [address] Lymphocytes/100 WBC (Bld) 17.2 % Low 19-41 [facility] Comment on above: Performed By: #### L 500.2500, L100.0100 ####[facility] [address] [place], [address] MCH (RBC) [Entitic mass] 21.7 pg Low 27.0-32.0 [facility] Comment on above: Performed By: #### L 500.2500, L100.0100 ####[facility] [address] [place], [address] MCHC (RBC) [Mass/Vol] 29.7 g/dL Low 32-36 [facility] Comment on above: Performed By: #### L 500.2500, L100.0100 ####[facility] [address] [place], [address] MCV (RBC) [Entitic vol] 73.2 fL Low 81-99 [facility] Comment on above: Performed By: #### L 500.2500, L100.0100 ####[facility] [address] [place], [address] Monocytes/100 WBC (Bld) 8.3 % Normal 0-10 [facility] Comment on above: Performed By: #### L 500.2500, L100.0100 ####[facility] [address] [place], [address] Neutrophils/100 WBC (Bld) 70.6 % High 47-70 [facility] Comment on above: Performed By: #### L 500.2500, L100.0100 ####[facility] [address] [place], [address] Nucleated RBC (Bld) [#/Vol] 0 10*3/uL Normal 0-5 [facility] Comment on above: Performed By: #### L 500.2500, L100.0100 ####[facility] [address] [place], [address] Platelet mean volume (Bld) [Entitic vol] 9.6 fL Normal 6.2-12.0 [facility] Comment on above: Performed By: #### L 500.2500, L100.0100 ####[facility] [address] [place], [address] Platelets (Bld) [#/Vol] 428 10*3/uL Normal 150-450 [facility] Comment on above: Performed By: #### L 500.2500, L100.0100 ####[facility] [address] [place], [address] RBC (Bld) [#/Vol] 3.96 10*6/uL Low 4.2-5.4 [facility] Comment on above: Performed By: #### L 500.2500, L100.0100 ####[facility] [address] [place], [address] RDW SD 49.3 fl High 35.1-43.9 [facility] Comment on above: Performed By: #### L 500.2500, L100.0100 ####[facility] [address] [place], [address] WBC (Bld) [#/Vol] 6.9 10*3/uL Normal 4.4-11.0 [facility] Comment on above: Performed By: #### L 500.2500, L100.0100 ####[facility] [address] [place], [address] MR/POSTOP.ANEon 02-27-2025 MR/POSTOP.ANE Normal [facility] Operative Reporton Operative Report Normal [facility] Basic Metabolic Profile (BMP )on 02-26-2025 BUN/CRE 38.2 RATIO High 10-20 [facility] Comment on above: Performed By: #### L 500.2500, L100.0100 ####[facility] [address] [place], [address] Calcium [Mass/Vol] 8.8 mg/dL Normal 7.6-11.0 [facility] Comment on above: Performed By: #### L 500.2500, L100.0100 ####[facility] [address] [place], [address] Chloride [Moles/Vol] 101 mmol/L Normal 98-108 [facility] Comment on above: Performed By: #### L 500.2500, L100.0100 ####[facility] [address] [place], [address] CO2 [Moles/Vol] 21.6 mmol/L Normal 21.0-32.0 [facility] Comment on above: Performed By: #### L 500.2500, L100.0100 ####[facility] [address] [place], [address] Creatinine [Mass/Vol] 1.35 mg/dL High 0.70-1.20 [facility] Comment on above: Performed By: #### L 500.2500, L100.0100 ####[facility] [address] [place], [address] ECRCL 43.09 ml/min Low 50-250 [facility] Comment on above: Performed By: #### L 500.2500, L100.0100 ####[facility] [address] [place], [address] GAP 13 Normal 5-15 [facility] Comment on above: Performed By: #### L 500.2500, L100.0100 ####[facility] [address] [place], [address] GFR/1.73 sq M.predicted among non-blacks MDRD (S/P/Bld) [Vol rate/Area] 41 mL/min/{1.73_m2} Low >60 [facility] Comment on above: Result Comment: mL/m in/1.73m2 CKD-EPI Creatinine Equation (2020) Performed By: #### L 500.2500, L100.0100 ####[facility] [address] [place], [address] Glucose [Mass/Vol] 75 mg/dL Normal 70-99 [facility] Comment on above: Performed By: #### L 500.2500, L100.0100 ####[facility] [address] [place], [address] Potassium [Moles/Vol] 3.4 mmol/L Normal 3.3-5.1 [facility] Comment on above: Performed By: #### L 500.2500, L100.0100 ####[facility] [address] [place], [address] Sodium [Moles/Vol] 136 mmol/L Normal 133-145 [facility] Comment on above: Performed By: #### L 500.2500, L100.0100 ####[facility] [address] [place], [address] Urea nitrogen [Mass/Vol] 52 mg/dL High 4-19 [facility] Comment on above: Performed By: #### L 500.2500, L100.0100 ####[facility] [address] [place], [address] Bedside Glucoseon 02-26-2025 FINGERSTICK GLU 94 mg/dL Normal 74-106 [facility] Comment on above: Result Comment: VI GEMENT OF PATIENT CARE PER NURSING PROTOCOL Performed By: #### L 501.080 ####[facility] [address] [place], [address] FINGERSTICK GLU 103 mg/dL Normal 74-106 [facility] Comment on above: Result Comment: VI GEMENT OF PATIENT CARE PER NURSING PROTOCOL Performed By: #### L 501.080 ####[facility] [address] [place], [address] FINGERSTICK GLU 92 mg/dL Normal 74-106 [facility] Comment on above: Result Comment: VI GEMENT OF PATIENT CARE PER NURSING PROTOCOL Performed By: #### L 501.080 ####[facility] [address] [place], [address] FINGERSTICK GLU 130 mg/dL High 74-106 [facility] Comment on above: Result Comment: VI GEMENT OF PATIENT CARE PER NURSING PROTOCOL Performed By: #### L 501.080 ####[facility] [address] [place], [address] FINGERSTICK GLU 59 mg/dL Low 74-106 [facility] Comment on above: Result Comment: VI GEMENT OF PATIENT CARE PER NURSING PROTOCOL Performed By: #### L 501.080 ####[facility] [address] [place], [address] FINGERSTICK GLU 73 mg/dL Low 74-106 [facility] Comment on above: Result Comment: VI GEMENT OF PATIENT CARE PER NURSING PROTOCOL Performed By: #### L 501.080 ####[facility] [address] [place], [address] Blood Gases by [facility] 025 DANIEL TEST Positive Normal [facility] Comment on above: Performed By: #### L 9000.0800 ####[facility] [address] [place], [address] Base excess Calc (Bld) [Moles/Vol] 2 mmol/L Normal -2 to +2 [facility] Comment on above: Performed By: #### L 9000.0800 ####[facility] [address] [place], [address] Blood Gas Type ART Normal [facility] Comment on above: Performed By: #### L 9000.0800 ####[facility] [address] [place], [address] CO2 [Moles/Vol] 26 mmol/L Normal [facility] Comment on above: Performed By: #### L 9000.0800 ####[facility] [address] [place], [address] FI02 25.0 Normal [facility] Comment on above: Performed By: #### L 9000.0800 ####[facility] [address] [place], [address] HCO3 (Bld) [Moles/Vol] 25.0 mmol/L Normal 22-26 [facility] Comment on above: Performed By: #### L 9000.0800 ####[facility] [address] [place], [address] Mode AC Normal [facility] Comment on above: Performed By: #### L 9000.0800 ####[facility] [address] [place], [address] O2 Delivery Dev Adult Vent Normal [facility] Comment on above: Performed By: #### L 9000.0800 ####[facility] [address] [place], [address] pCO2 33.6 mmHg Low 35-45 [facility] Comment on above: Performed By: #### L 9000.0800 ####[facility] [address] [place], [address] pH (Bld) 7.48 [pH] High 7.35-7.45 [facility] Comment on above: Performed By: #### L 9000.0800 ####[facility] [address] [place], [address] PO2 78 mmHG Normal 75-100 [facility] Comment on above: Performed By: #### L 9000.0800 ####[facility] [address] [place], [address] RR 14 Normal [facility] Comment on above: Performed By: #### L 9000.0800 ####[facility] [address] [place], [address] SITE L Radial Normal [facility] Comment on above: Performed By: #### L 9000.0800 ####[facility] [address] [place], [address] SO2 97 Normal 95-99 [facility] Comment on above: Performed By: #### L 9000.0800 ####[facility] [address] [place], [address] Vt 450.0 mL Normal [facility] Comment on above: Performed By: #### L 9000.0800 ####[facility] [address] [place], [address] CBC W/Diff, Automatedon 06-0 2-2024 Absolute Lymph 1.06 X10 3/uL Normal 0.83-4.51 [facility] Comment on above: Performed By: #### L 500.2500, L100.0100 ####[facility] [address] [place], [address] Absolute Neut 5.3 X10 3/uL Normal 2.0-7.7 [facility] Comment on above: Performed By: #### L 500.2500, L100.0100 ####[facility] [address] [place], [address] Basophils/100 WBC (Bld) 0.8 % Normal 0-1 [facility] Comment on above: Performed By: #### L 500.2500, L100.0100 ####[facility] [address] [place], [address] Eosinophils/100 WBC (Bld) 2.4 % Normal 0-5 [facility] Comment on above: Performed By: #### L 500.2500, L100.0100 ####[facility] [address] [place], [address] Erythrocyte distribution width (RBC) [Ratio] 18.7 % High 11.6-14.6 [facility] Comment on above: Performed By: #### L 500.2500, L100.0100 ####[facility] [address] [place], [address] Hematocrit (Bld) [Volume fraction] 27.9 % Low 37-47 [facility] Comment on above: Performed By: #### L 500.2500, L100.0100 ####[facility] [address] [place], [address] Hemoglobin (Bld) [Mass/Vol] 8.2 g/dL Low 12.0-15.0 [facility] Comment on above: Performed By: #### L 500.2500, L100.0100 ####[facility] [address] [place], [address] IG% 0.400 Normal 0.0-0.9 [facility] Comment on above: Result Comment: IG% - Immature Granulocytes (promyelocytes, myelocytes andmetamyelocytes) > 1% indicates that a LEFT SHIFT is Present. Performed By: #### L 500.2500, L100.0100 ####[facility] [address] [place], [address] Lymphocytes/100 WBC (Bld) 14.4 % Low 19-41 [facility] Comment on above: Performed By: #### L 500.2500, L100.0100 ####[facility] [address] [place], [address] MCH (RBC) [Entitic mass] 21.6 pg Low 27.0-32.0 [facility] Comment on above: Performed By: #### L 500.2500, L100.0100 ####[facility] [address] [place], [address] MCHC (RBC) [Mass/Vol] 29.4 g/dL Low 32-36 [facility] Comment on above: Performed By: #### L 500.2500, L100.0100 ####[facility] [address] [place], [address] MCV (RBC) [Entitic vol] 73.4 fL Low 81-99 [facility] Comment on above: Performed By: #### L 500.2500, L100.0100 ####[facility] [address] [place], [address] Monocytes/100 WBC (Bld) 9.5 % Normal 0-10 [facility] Comment on above: Performed By: #### L 500.2500, L100.0100 ####[facility] [address] [place], [address] Neutrophils/100 WBC (Bld) 72.5 % High 47-70 [facility] Comment on above: Performed By: #### L 500.2500, L100.0100 ####[facility] [address] [place], [address] Nucleated RBC (Bld) [#/Vol] 0 10*3/uL Normal 0-5 [facility] Comment on above: Performed By: #### L 500.2500, L100.0100 ####[facility] [address] [place], [address] Platelet mean volume (Bld) [Entitic vol] 9.9 fL Normal 6.2-12.0 [facility] Comment on above: Performed By: #### L 500.2500, L100.0100 ####[facility] [address] [place], [address] Platelets (Bld) [#/Vol] 407 10*3/uL Normal 150-450 [facility] Comment on above: Performed By: #### L 500.2500, L100.0100 ####[facility] [address] [place], [address] RBC (Bld) [#/Vol] 3.80 10*6/uL Low 4.2-5.4 [facility] Comment on above: Performed By: #### L 500.2500, L100.0100 ####[facility] [address] [place], [address] RDW SD 49.4 fl High 35.1-43.9 [facility] Comment on above: Performed By: #### L 500.2500, L100.0100 ####[facility] [address] [place], [address] WBC (Bld) [#/Vol] 7.4 10*3/uL Normal 4.4-11.0 [facility] Comment on above: Performed By: #### L 500.2500, L100.0100 ####[facility] [address] [place], [address] Chest 1 View (Portable)on Chest 1 View (Portable) Normal [facility] [place] Abdomen Single View (Portabl e)on 02-25-2025 Abdomen Single View (Portable) Normal [facility] Basic Metabolic Profile (BMP )on 02-25-2025 BUN/CRE 38.5 RATIO High 10-20 [facility] Comment on above: Performed By: #### L 100.0100, L500.2500, L501.5200 ####[facility] [address] [place], [address] Calcium [Mass/Vol] 8.9 mg/dL Normal 7.6-11.0 [facility] Comment on above: Performed By: #### L 100.0100, L500.2500, L501.5200 ####[facility] [address] [place], [address] Chloride [Moles/Vol] 102 mmol/L Normal 98-108 [facility] Comment on above: Performed By: #### L 100.0100, L500.2500, L501.5200 ####[facility] [address] [place], [address] CO2 [Moles/Vol] 21.0 mmol/L Normal 21.0-32.0 [facility] Comment on above: Performed By: #### L 100.0100, L500.2500, L501.5200 ####[facility] [address] [place], [address] Creatinine [Mass/Vol] 1.51 mg/dL High 0.70-1.20 [facility] Comment on above: Performed By: #### L 100.0100, L500.2500, L501.5200 ####[facility] [address] [place], [address] ECRCL 38.65 ml/min Low 50-250 [facility] Comment on above: Performed By: #### L 100.0100, L500.2500, L501.5200 ####[facility] [address] [place], [address] GAP 14 Normal 5-15 [facility] Comment on above: Performed By: #### L 100.0100, L500.2500, L501.5200 ####[facility] [address] [place], [address] GFR/1.73 sq M.predicted among non-blacks MDRD (S/P/Bld) [Vol rate/Area] 36 mL/min/{1.73_m2} Low >60 [facility] Comment on above: Result Comment: mL/m in/1.73m2 CKD-EPI Creatinine Equation (2020) Performed By: #### L 100.0100, L500.2500, L501.5200 ####[facility] [address] [place], [address] Glucose [Mass/Vol] 119 mg/dL High 70-99 [facility] Comment on above: Performed By: #### L 100.0100, L500.2500, L501.5200 ####[facility] [address] [place], [address] Potassium [Moles/Vol] 3.9 mmol/L Normal 3.3-5.1 [facility] Comment on above: Performed By: #### L 100.0100, L500.2500, L501.5200 ####[facility] [address] [place], [address] Sodium [Moles/Vol] 137 mmol/L Normal 133-145 [facility] Comment on above: Performed By: #### L 100.0100, L500.2500, L501.5200 ####[facility] [address] [place], [address] Urea nitrogen [Mass/Vol] 58 mg/dL High 4-19 [facility] Comment on above: Performed By: #### L 100.0100, L500.2500, L501.5200 ####[facility] [address] [place], [address] Bedside Glucoseon 02-25-2025 FINGERSTICK GLU 77 mg/dL Normal 74-106 [facility] Comment on above: Result Comment: VI GEMENT OF PATIENT CARE PER NURSING PROTOCOL Performed By: #### L 501.080 ####[facility] [address] [place], [address] FINGERSTICK GLU 97 mg/dL Normal 74-106 [facility] Comment on above: Result Comment: VI GEMENT OF PATIENT CARE PER NURSING PROTOCOL Performed By: #### L 501.080 ####[facility] [address] [place], [address] FINGERSTICK GLU 115 mg/dL High 74-106 [facility] Comment on above: Result Comment: VI GEMENT OF PATIENT CARE PER NURSING PROTOCOL Performed By: #### L 501.080 ####[facility] [address] [place], [address] FINGERSTICK GLU 120 mg/dL High 74-106 [facility] Comment on above: Result Comment: VI GEMENT OF PATIENT CARE PER NURSING PROTOCOL Performed By: #### L 501.080 ####[facility] [address] [place], [address] Blood Gases by [facility] 025 Base excess Calc (Bld) [Moles/Vol] 2 mmol/L Normal -2 to +2 [facility] Comment on above: Performed By: #### L 9000.0800 ####[facility] [address] [place], [address] Blood Gas Type ART Normal [facility] Comment on above: Performed By: #### L 9000.0800 ####[facility] [address] [place], [address] CO2 [Moles/Vol] 27 mmol/L Normal [facility] Comment on above: Performed By: #### L 9000.0800 ####[facility] [address] [place], [address] FI02 25.0 Normal [facility] Comment on above: Performed By: #### L 9000.0800 ####[facility] [address] [place], [address] HCO3 (Bld) [Moles/Vol] 25.6 mmol/L Normal 22-26 [facility] Comment on above: Performed By: #### L 9000.0800 ####[facility] [address] [place], [address] Mode AC Normal [facility] Comment on above: Performed By: #### L 9000.0800 ####[facility] [address] [place], [address] O2 Delivery Dev Adult Vent Normal [facility] Comment on above: Performed By: #### L 8999.08 ####[facility] [address] [place], [address] pCO2 32.7 mmHg Low 35-45 [facility] Comment on above: Performed By: #### L 8999.0800 ####[facility] [address] [place], [address] PEEP 5 Normal [facility] Comment on above: Performed By: #### L 8999.0800 ####[facility] [address] [place], [address] pH (Bld) 7.50 [pH] High 7.35-7.45 [facility] Comment on above: Performed By: #### L 8999.0800 ####[facility] [address] [place], [address] PO2 82 mmHG Normal 75-100 [facility] Comment on above: Performed By: #### L 8999.0800 ####[facility] [address] [place], [address] RR 14 Normal [facility] Comment on above: Performed By: #### L 8999.0800 ####[facility] [address] [place], [address] SITE L Brach Normal [facility] Comment on above: Performed By: #### L 0.0800 ####[facility] [address] [place], [address] SO2 97 Normal 95-99 [facility] Comment on above: Performed By: #### L 0.0800 ####[facility] [address] [place], [address] Vt 450.0 mL Normal [facility] Comment on above: Performed By: #### L 9000.0800 ####[facility] [address] [place], [address] CBC W/Diff, Automatedon 06-0 1-2024 Absolute Lymph 0.96 X10 3/uL Normal 0.83-4.51 [facility] Comment on above: Performed By: #### L 100.0100, L500.2500, L501.5200 ####[facility] [address] [place], [address] Absolute Neut 5.2 X10 3/uL Normal 2.0-7.7 [facility] Comment on above: Performed By: #### L 100.0100, L500.2500, L501.5200 ####[facility] [address] [place], [address] Basophils/100 WBC (Bld) 1.0 % Normal 0-1 [facility] Comment on above: Performed By: #### L 100.0100, L500.2500, L501.5200 ####[facility] [address] [place], [address] Eosinophils/100 WBC (Bld) 2.5 % Normal 0-5 [facility] Comment on above: Performed By: #### L 100.0100, L500.2500, L501.5200 ####[facility] [address] [place], [address] Erythrocyte distribution width (RBC) [Ratio] 18.8 % High 11.6-14.6 [facility] Comment on above: Performed By: #### L 100.0100, L500.2500, L501.5200 ####[facility] [address] [place], [address] Hematocrit (Bld) [Volume fraction] 27.1 % Low 37-47 [facility] Comment on above: Performed By: #### L 100.0100, L500.2500, L501.5200 ####[facility] [address] [place], [address] Hemoglobin (Bld) [Mass/Vol] 8.0 g/dL Low 12.0-15.0 [facility] Comment on above: Performed By: #### L 100.0100, L500.2500, L501.5200 ####[facility] [address] [place], [address] IG% 0.300 Normal 0.0-0.9 [facility] Comment on above: Result Comment: IG% - Immature Granulocytes (promyelocytes, myelocytes andmetamyelocytes) > 1% indicates that a LEFT SHIFT is Present. Performed By: #### L 100.0100, L500.2500, L501.5200 ####[facility] [address] [place], [address] Lymphocytes/100 WBC (Bld) 13.5 % Low 19-41 [facility] Comment on above: Performed By: #### L 100.0100, L500.2500, L501.5200 ####[facility] [address] [place], [address] MCH (RBC) [Entitic mass] 21.6 pg Low 27.0-32.0 [facility] Comment on above: Performed By: #### L 100.0100, L500.2500, L501.5200 ####[facility] [address] [place], [address] MCHC (RBC) [Mass/Vol] 29.5 g/dL Low 32-36 [facility] Comment on above: Performed By: #### L 100.0100, L500.2500, L501.5200 ####[facility] [address] [place], [address] MCV (RBC) [Entitic vol] 73.2 fL Low 81-99 [facility] Comment on above: Performed By: #### L 100.0100, L500.2500, L501.5200 ####[facility] [address] [place], [address] Monocytes/100 WBC (Bld) 8.9 % Normal 0-10 [facility] Comment on above: Performed By: #### L 100.0100, L500.2500, L501.5200 ####[facility] [address] [place], [address] Neutrophils/100 WBC (Bld) 73.8 % High 47-70 [facility] Comment on above: Performed By: #### L 100.0100, L500.2500, L501.5200 ####[facility] [address] [place], [address] Nucleated RBC (Bld) [#/Vol] 0 10*3/uL Normal 0-5 [facility] Comment on above: Performed By: #### L 100.0100, L500.2500, L501.5200 ####[facility] [address] [place], [address] Platelet mean volume (Bld) [Entitic vol] 10.6 fL Normal 6.2-12.0 [facility] Comment on above: Performed By: #### L 100.0100, L500.2500, L501.5200 ####[facility] [address] [place], [address] Platelets (Bld) [#/Vol] 397 10*3/uL Normal 150-450 [facility] Comment on above: Performed By: #### L 100.0100, L500.2500, L501.5200 ####[facility] [address] [place], [address] RBC (Bld) [#/Vol] 3.70 10*6/uL Low 4.2-5.4 [facility] Comment on above: Performed By: #### L 100.0100, L500.2500, L501.5200 ####[facility] [address] [place], [address] RDW SD 50.0 fl High 35.1-43.9 [facility] Comment on above: Performed By: #### L 100.0100, L500.2500, L501.5200 ####[facility] [address] [place], [address] WBC (Bld) [#/Vol] 7.1 10*3/uL Normal 4.4-11.0 [facility] Comment on above: Performed By: #### L 100.0100, L500.2500, L501.5200 ####[facility] [address] [place], [address] Magnesiumon 02-25-2025 Magnesium [Mass/Vol] 1.9 mg/dL Normal 1.5-2.2 [facility] Comment on above: Performed By: #### L 100.0100, L500.2500, L501.5200 ####[facility] [address] [place], [address] Phosphoruson 02-25-2025 Phosphate [Mass/Vol] 3.7 mg/dL Normal 2.7-4.5 [facility] Comment on above: Performed By: #### L 501.2300 ####[facility] [address] [place], [address] Basic Metabolic Profile (BMP )on 02-24-2025 BUN/CRE 37.1 RATIO High 10-20 [facility] Comment on above: Performed By: #### L 500.2500, L100.0100 ####[facility] [address] [place], [address] Calcium [Mass/Vol] 8.8 mg/dL Normal 7.6-11.0 [facility] Comment on above: Performed By: #### L 500.2500, L100.0100 ####[facility] [address] [place], [address] Chloride [Moles/Vol] 99 mmol/L Normal 98-108 [facility] Comment on above: Performed By: #### L 500.2500, L100.0100 ####[facility] [address] [place], [address] CO2 [Moles/Vol] 21.0 mmol/L Normal 21.0-32.0 [facility] Comment on above: Performed By: #### L 500.2500, L100.0100 ####[facility] [address] [place], [address] Creatinine [Mass/Vol] 1.67 mg/dL High 0.70-1.20 [facility] Comment on above: Performed By: #### L 500.2500, L100.0100 ####[facility] [address] [place], [address] ECRCL 34.98 ml/min Low 50-250 [facility] Comment on above: Performed By: #### L 500.2500, L100.0100 ####[facility] [address] [place], [address] GAP 14 Normal 5-15 [facility] Comment on above: Performed By: #### L 500.2500, L100.0100 ####[facility] [address] [place], [address] GFR/1.73 sq M.predicted among non-blacks MDRD (S/P/Bld) [Vol rate/Area] 32 mL/min/{1.73_m2} Low >60 [facility] Comment on above: Result Comment: mL/m in/1.73m2 CKD-EPI Creatinine Equation (2020) Performed By: #### L 500.2500, L100.0100 ####[facility] [address] [place], [address] Glucose [Mass/Vol] 109 mg/dL High 70-99 [facility] Comment on above: Performed By: #### L 500.2500, L100.0100 ####[facility] [address] [place], [address] Potassium [Moles/Vol] 3.4 mmol/L Normal 3.3-5.1 [facility] Comment on above: Performed By: #### L 500.2500, L100.0100 ####[facility] [address] [place], [address] Sodium [Moles/Vol] 134 mmol/L Normal 133-145 [facility] Comment on above: Performed By: #### L 500.2500, L100.0100 ####[facility] [address] [place], [address] Urea nitrogen [Mass/Vol] 62 mg/dL High 4-19 [facility] Comment on above: Performed By: #### L 500.2500, L100.0100 ####[facility] [address] [place], [address] Bedside Glucoseon 02-24-2025 FINGERSTICK GLU 119 mg/dL High 74-106 [facility] Comment on above: Result Comment: VI GEMENT OF PATIENT CARE PER NURSING PROTOCOL Performed By: #### L 501.080 ####[facility] [address] [place], [address] FINGERSTICK GLU 99 mg/dL Normal 74-106 [facility] Comment on above: Result Comment: VI GEMENT OF PATIENT CARE PER NURSING PROTOCOL Performed By: #### L 501.080 ####[facility] [address] [place], [address] FINGERSTICK GLU 99 mg/dL Normal 74-106 [facility] Comment on above: Result Comment: VI GEMENT OF PATIENT CARE PER NURSING PROTOCOL Performed By: #### L 501.080 ####[facility] [address] [place], [address] FINGERSTICK GLU 97 mg/dL Normal 74-106 [facility] Comment on above: Result Comment: VI GEMENT OF PATIENT CARE PER NURSING PROTOCOL Performed By: #### L 501.080 ####[facility] [address] [place], [address] FINGERSTICK GLU 112 mg/dL High 74-106 [facility] Comment on above: Result Comment: VI GEMENT OF PATIENT CARE PER NURSING PROTOCOL Performed By: #### L 501.080 ####[facility] [address] [place], [address] FINGERSTICK GLU 162 mg/dL High 74-106 [facility] Comment on above: Result Comment: VI GEMENT OF PATIENT CARE PER NURSING PROTOCOL Performed By: #### L 501.080 ####[facility] [address] [place], [address] FINGERSTICK GLU 61 mg/dL Low 74-106 [facility] Comment on above: Result Comment: VI GEMENT OF PATIENT CARE PER NURSING PROTOCOL Performed By: #### L 501.080 ####[facility] [address] [place], [address] FINGERSTICK GLU 73 mg/dL Low 74-106 [facility] Comment on above: Result Comment: VI GEMENT OF PATIENT CARE PER NURSING PROTOCOL Performed By: #### L 501.080 ####[facility] [address] [place], [address] CBC W/Diff, Automatedon 05-3 Absolute Lymph 0.89 X10 3/uL Normal 0.83-4.51 [facility] Comment on above: Performed By: #### L 500.2500, L100.0100 ####[facility] [address] [place], [address] Absolute Neut 6.8 X10 3/uL Normal 2.0-7.7 [facility] Comment on above: Performed By: #### L 500.2500, L100.0100 ####[facility] [address] [place], [address] Basophils/100 WBC (Bld) 0.7 % Normal 0-1 [facility] Comment on above: Performed By: #### L 500.2500, L100.0100 ####[facility] [address] [place], [address] Eosinophils/100 WBC (Bld) 2.5 % Normal 0-5 [facility] Comment on above: Performed By: #### L 500.2500, L100.0100 ####[facility] [address] [place], [address] Erythrocyte distribution width (RBC) [Ratio] 18.9 % High 11.6-14.6 [facility] Comment on above: Performed By: #### L 500.2500, L100.0100 ####[facility] [address] [place], [address] Hematocrit (Bld) [Volume fraction] 27.9 % Low 37-47 [facility] Comment on above: Performed By: #### L 500.2500, L100.0100 ####[facility] [address] [place], [address] Hemoglobin (Bld) [Mass/Vol] 8.3 g/dL Low 12.0-15.0 [facility] Comment on above: Performed By: #### L 500.2500, L100.0100 ####[facility] [address] [place], [address] IG% 0.500 Normal 0.0-0.9 [facility] Comment on above: Result Comment: IG% - Immature Granulocytes (promyelocytes, myelocytes andmetamyelocytes) > 1% indicates that a LEFT SHIFT is Present. Performed By: #### L 500.2500, L100.0100 ####[facility] [address] [place], [address] Lymphocytes/100 WBC (Bld) 10.2 % Low 19-41 [facility] Comment on above: Performed By: #### L 500.2500, L100.0100 ####[facility] [address] [place], [address] MCH (RBC) [Entitic mass] 21.8 pg Low 27.0-32.0 [facility] Comment on above: Performed By: #### L 500.2500, L100.0100 ####[facility] [address] [place], [address] MCHC (RBC) [Mass/Vol] 29.7 g/dL Low 32-36 [facility] Comment on above: Performed By: #### L 500.2500, L100.0100 ####[facility] [address] [place], [address] MCV (RBC) [Entitic vol] 73.2 fL Low 81-99 [facility] Comment on above: Performed By: #### L 500.2500, L100.0100 ####[facility] [address] [place], [address] Monocytes/100 WBC (Bld) 8.0 % Normal 0-10 [facility] Comment on above: Performed By: #### L 500.2500, L100.0100 ####[facility] [address] [place], [address] Neutrophils/100 WBC (Bld) 78.1 % High 47-70 [facility] Comment on above: Performed By: #### L 500.2500, L100.0100 ####[facility] [address] [place], [address] Nucleated RBC (Bld) [#/Vol] 0 10*3/uL Normal 0-5 [facility] Comment on above: Performed By: #### L 500.2500, L100.0100 ####[facility] [address] [place], [address] Platelet mean volume (Bld) [Entitic vol] 10.0 fL Normal 6.2-12.0 [facility] Comment on above: Performed By: #### L 500.2500, L100.0100 ####[facility] [address] [place], [address] Platelets (Bld) [#/Vol] 402 10*3/uL Normal 150-450 [facility] Comment on above: Performed By: #### L 500.2500, L100.0100 ####[facility] [address] [place], [address] RBC (Bld) [#/Vol] 3.81 10*6/uL Low 4.2-5.4 [facility] Comment on above: Performed By: #### L 500.2500, L100.0100 ####[facility] [address] [place], [address] RDW SD 49.6 fl High 35.1-43.9 [facility] Comment on above: Performed By: #### L 500.2500, L100.0100 ####[facility] [address] [place], [address] WBC (Bld) [#/Vol] 8.7 10*3/uL Normal 4.4-11.0 [facility] Comment on above: Performed By: #### L 500.2500, L100.0100 ####[facility] [address] [place], [address] Basic Metabolic Profile (BMP )on 02-23-2025 BUN/CRE 33.4 RATIO High 10-20 [facility] Comment on above: Performed By: #### L 100.0100, L500.2500 ####[facility] [address] [place], [address] Calcium [Mass/Vol] 8.8 mg/dL Normal 7.6-11.0 [facility] Comment on above: Performed By: #### L 100.0100, L500.2500 ####[facility] [address] [place], [address] Chloride [Moles/Vol] 98 mmol/L Normal 98-108 [facility] Comment on above: Performed By: #### L 100.0100, L500.2500 ####[facility] [facility] [address] [place], [address] CO2 [Moles/Vol] 20.9 mmol/L Low 21.0-32.0 [facility] Comment on above: Performed By: #### L 100.0100, L500.2500 ####[facility] [address] [place], [address] Creatinine [Mass/Vol] 1.86 mg/dL High 0.70-1.20 [facility] Comment on above: Performed By: #### L 100.0100, L500.2500 ####[facility] [address] [place], [address] ECRCL 31.46 ml/min Low 50-250 [facility] Comment on above: Performed By: #### L 100.0100, L500.2500 ####[facility] [address] [place], [address] GAP 12 Normal 5-15 [facility] Comment on above: Performed By: #### L 100.0100, L500.2500 ####[facility] [address] [place], [address] GFR/1.73 sq M.predicted among non-blacks MDRD (S/P/Bld) [Vol rate/Area] 28 mL/min/{1.73_m2} Low >60 [facility] Comment on above: Result Comment: mL/m in/1.73m2 CKD-EPI Creatinine Equation (2020) Performed By: #### L 100.0100, L500.2500 ####[facility] [address] [place], [address] Glucose [Mass/Vol] 47 mg/dL Low 70-99 [facility] Comment on above: Performed By: #### L 100.0100, L500.2500 ####[facility] [address] [place], [address] Potassium [Moles/Vol] 3.3 mmol/L Normal 3.3-5.1 [facility] Comment on above: Performed By: #### L 100.0100, L500.2500 ####[facility] [address] [place], [address] Sodium [Moles/Vol] 130 mmol/L Low 133-145 [facility] Comment on above: Performed By: #### L 100.0100, L500.2500 ####[facility] [address] [place], [address] Urea nitrogen [Mass/Vol] 62 mg/dL High 4-19 [facility] Comment on above: Performed By: #### L 100.0100, L500.2500 ####[facility] [address] [place], [address] Bedside Glucoseon 02-23-2025 FINGERSTICK GLU 88 mg/dL Normal 74-106 [facility] Comment on above: Result Comment: VI MONTEJO OF PATIENT CARE PER NURSING PROTOCOL Performed By: #### L 501.080 ####[facility] [address] [place], [address] FINGERSTICK GLU 73 mg/dL Low 74-106 [facility] Comment on above: Result Comment: VI GEMENT OF PATIENT CARE PER NURSING PROTOCOL Performed By: #### L 501.080 ####[facility] [address] [place], [address] FINGERSTICK GLU 117 mg/dL High 74-106 [facility] Comment on above: Result Comment: VI GEMENT OF PATIENT CARE PER NURSING PROTOCOL Performed By: #### L 501.080 ####[facility] [address] [place], [address] FINGERSTICK GLU 43 mg/dL Invalid Interpretation Code [facility]106 [facility] Comment on above: Result Comment: VI GEMENT OF PATIENT CARE PER NURSING PROTOCOL Performed By: #### L 501.080 ####[facility] [address] [place], [address] FINGERSTICK GLU 99 mg/dL Normal [address] [place] [address] Comment on above: Result Comment: VI GEMENT OF PATIENT CARE PER NURSING PROTOCOL Performed By: #### L 501.080 ####[facility] [address] [place], [address] Blood Gases by [facility] 025 DANIEL TEST Positive Normal [facility] Comment on above: Performed By: #### L 9000.0800 ####[facility] [address] [place], [address] Base excess Calc (Bld) [Moles/Vol] 1 mmol/L Normal -2 to +2 [facility] Comment on above: Performed By: #### L 9000.0800 ####[facility] [address] [place], [address] Blood Gas Type ART Normal [facility] Comment on above: Performed By: #### L 9000.0800 ####[facility] [address] [place], [address] CO2 [Moles/Vol] 25 mmol/L Normal [facility] Comment on above: Performed By: #### L 9000.0800 ####[facility] [address] [place], [address] FI02 25.0 Normal [facility] Comment on above: Performed By: #### L 9000.0800 ####[facility] [address] [place], [address] HCO3 (Bld) [Moles/Vol] 24.3 mmol/L Normal 22-26 [facility] Comment on above: Performed By: #### L 9000.0800 ####[facility] [address] [place], [address] Mode AC Normal [facility] Comment on above: Performed By: #### L 9000.0800 ####[facility] [address] [place], [address] O2 Delivery Dev ET Tube Normal [facility] Comment on above: Performed By: #### L 9000.0800 ####[facility] [address] [place], [address] pCO2 33.8 mmHg Low 35-45 [facility] Comment on above: Performed By: #### L 9000.0800 ####[facility] [address] [place], [address] PEEP 5 Normal [facility] Comment on above: Performed By: #### L 9000.0800 ####[facility] [address] [place], [address] pH (Bld) 7.46 [pH] High 7.35-7.45 [facility] Comment on above: Performed By: #### L 9000.0800 ####[facility] [address] [place], [address] PO2 73 mmHG Low 75-100 [facility] Comment on above: Performed By: #### L 9000.0800 ####[facility] [address] [place], [address] RR 14 Normal [facility] Comment on above: Performed By: #### L 9000.0800 ####[facility] [address] [place], [address] SITE R Radial Normal [facility] Comment on above: Performed By: #### L 9000.0800 ####[facility] [address] [place], [address] SO2 96 Normal 95-99 [facility] Comment on above: Performed By: #### L 9000.0800 ####[facility] [address] [place], [address] Vt 450.0 mL Normal [facility] Comment on above: Performed By: #### L 9000.0800 ####[facility] [address] [place], [address] CBC W/Diff, Automatedon 05-3 0-2025 Absolute Lymph 1.04 X10 3/uL Normal 0.83-4.51 [facility] Comment on above: Performed By: #### L 100.0100, L500.2500 ####[facility] [address] [place], [address] Absolute Neut 7.1 X10 3/uL Normal 2.0-7.7 [facility] Comment on above: Performed By: #### L 100.0100, L500.2500 ####[facility] [address] [place], [address] Basophils/100 WBC (Bld) 0.5 % Normal 0-1 [facility] Comment on above: Performed By: #### L 100.0100, L500.2500 ####[facility] [address] [place], [address] Eosinophils/100 WBC (Bld) 2.0 % Normal 0-5 [facility] Comment on above: Performed By: #### L 100.0100, L500.2500 ####[facility] [address] [place], [address] Erythrocyte distribution width (RBC) [Ratio] 19.4 % High 11.6-14.6 [facility] Comment on above: Performed By: #### L 100.0100, L500.2500 ####[facility] [address] [place], [address] Hematocrit (Bld) [Volume fraction] 27.5 % Low 37-47 [facility] Comment on above: Performed By: #### L 100.0100, L500.2500 ####[facility] [address] [place], [address] Hemoglobin (Bld) [Mass/Vol] 8.2 g/dL Low 12.0-15.0 [facility] Comment on above: Performed By: #### L 100.0100, L500.2500 ####[facility] [address] [place], [address] IG% 0.400 Normal 0.0-0.9 [facility] Comment on above: Result Comment: IG% - Immature Granulocytes (promyelocytes, myelocytes andmetamyelocytes) > 1% indicates that a LEFT SHIFT is Present. Performed By: #### L 100.0100, L500.2500 ####[facility] [address] [place], [address] Lymphocytes/100 WBC (Bld) 11.4 % Low 19-41 [facility] Comment on above: Performed By: #### L 100.0100, L500.2500 ####[facility] [address] [place], [address] MCH (RBC) [Entitic mass] 21.6 pg Low 27.0-32.0 [facility] Comment on above: Performed By: #### L 100.0100, L500.2500 ####[facility] [address] [place], [address] MCHC (RBC) [Mass/Vol] 29.8 g/dL Low 32-36 [facility] Comment on above: Performed By: #### L 100.0100, L500.2500 ####[facility] [address] [place], [address] MCV (RBC) [Entitic vol] 72.6 fL Low 81-99 [facility] Comment on above: Performed By: #### L 100.0100, L500.2500 ####[facility] [address] [place], [address] Monocytes/100 WBC (Bld) 7.3 % Normal 0-10 [facility] Comment on above: Performed By: #### L 100.0100, L500.2500 ####[facility] [address] [place], [address] Neutrophils/100 WBC (Bld) 78.4 % High 47-70 [facility] Comment on above: Performed By: #### L 100.0100, L500.2500 ####[facility] [address] [place], [address] Nucleated RBC (Bld) [#/Vol] 0 10*3/uL Normal 0-5 [facility] Comment on above: Performed By: #### L 100.0100, L500.2500 ####[facility] [address] [place], [address] Platelet mean volume (Bld) [Entitic vol] 10.2 fL Normal 6.2-12.0 [facility] Comment on above: Performed By: #### L 100.0100, L500.2500 ####[facility] [address] [place], [address] Platelets (Bld) [#/Vol] 398 10*3/uL Normal 150-450 [facility] Comment on above: Performed By: #### L 100.0100, L500.2500 ####[facility] [address] [place], [address] RBC (Bld) [#/Vol] 3.79 10*6/uL Low 4.2-5.4 [facility] Comment on above: Performed By: #### L 100.0100, L500.2500 ####[facility] [address] [place], [address] RDW SD 50.0 fl High 35.1-43.9 [facility] Comment on above: Performed By: #### L 100.0100, L500.2500 ####[facility] [address] [place], [address] WBC (Bld) [#/Vol] 9.1 10*3/uL Normal 4.4-11.0 [facility] Comment on above: Performed By: #### L 100.0100, L500.2500 ####[facility] [address] [place], [address] Chest 1 View (Portable)on Chest 1 View (Portable) Normal [facility] [place] Basic Metabolic Profile (BMP )on 02-22-2025 BUN/CRE 32.7 RATIO High 10-20 [facility] Comment on above: Performed By: #### L 500.2500, L100.0100 ####[facility] [address] [place], [address] Calcium [Mass/Vol] 9.0 mg/dL Normal 7.6-11.0 [facility] Comment on above: Performed By: #### L 500.2500, L100.0100 ####[facility] [address] [place], [address] Chloride [Moles/Vol] 99 mmol/L Normal 98-108 [facility] Comment on above: Performed By: #### L 500.2500, L100.0100 ####[facility] [address] [place], [address] CO2 [Moles/Vol] 20.6 mmol/L Low 21.0-32.0 [facility] Comment on above: Performed By: #### L 500.2500, L100.0100 ####[facility] [address] [place], [address] Creatinine [Mass/Vol] 1.84 mg/dL High 0.70-1.20 [facility] Comment on above: Performed By: #### L 500.2500, L100.0100 ####[facility] [address] [place], [address] ECRCL 31.80 ml/min Low 50-250 [facility] Comment on above: Performed By: #### L 500.2500, L100.0100 ####[facility] [address] [place], [address] GAP 14 Normal 5-15 [facility] Comment on above: Performed By: #### L 500.2500, L100.0100 ####[facility] [address] [place], [address] GFR/1.73 sq M.predicted among non-blacks MDRD (S/P/Bld) [Vol rate/Area] 28 mL/min/{1.73_m2} Low >60 [facility] Comment on above: Result Comment: mL/m in/1.73m2 CKD-EPI Creatinine Equation (2020) Performed By: #### L 500.2500, L100.0100 ####[facility] [address] [place], [address] Glucose [Mass/Vol] 118 mg/dL High 70-99 [facility] Comment on above: Performed By: #### L 500.2500, L100.0100 ####[facility] [address] [place], [address] Potassium [Moles/Vol] 3.7 mmol/L Normal 3.3-5.1 [facility] Comment on above: Performed By: #### L 500.2500, L100.0100 ####[facility] [address] [place], [address] Sodium [Moles/Vol] 134 mmol/L Normal 133-145 [facility] Comment on above: Performed By: #### L 500.2500, L100.0100 ####[facility] [address] [place], [address] Urea nitrogen [Mass/Vol] 60 mg/dL High 4-19 [facility] Comment on above: Performed By: #### L 500.2500, L100.0100 ####[facility] [address] [place], [address] Bedside Glucoseon 02-22-2025 FINGERSTICK GLU 62 mg/dL Low 74-106 [facility] Comment on above: Result Comment: VI GEMENT OF PATIENT CARE PER NURSING PROTOCOL Performed By: #### L 501.080 ####[facility] [address] [place], [address] FINGERSTICK GLU 56 mg/dL Low 74-106 [facility] Comment on above: Result Comment: VI GEMENT OF PATIENT CARE PER NURSING PROTOCOL Performed By: #### L 501.080 ####[facility] [address] [place], [address] FINGERSTICK GLU 154 mg/dL High 74-106 [facility] Comment on above: Result Comment: VI GEMENT OF PATIENT CARE PER NURSING PROTOCOL Performed By: #### L 501.080 ####[facility] [address] [place], [address] FINGERSTICK GLU 104 mg/dL Normal 74-106 [facility] Comment on above: Result Comment: VI GEMENT OF PATIENT CARE PER NURSING PROTOCOL Performed By: #### L 501.080 ####[facility] [address] [place], [address] FINGERSTICK GLU 112 mg/dL High 74-106 [facility] Comment on above: Result Comment: VI GEMENT OF PATIENT CARE PER NURSING PROTOCOL Performed By: #### L 501.080 ####[facility] [address] [place], [address] CBC W/Diff, Automatedon 05-2 Absolute Lymph 0.86 X10 3/uL Normal 0.83-4.51 [facility] Comment on above: Performed By: #### L 500.2500, L100.0100 ####[facility] [address] [place], [address] Absolute Neut 7.2 X10 3/uL Normal 2.0-7.7 [facility] Comment on above: Performed By: #### L 500.2500, L100.0100 ####[facility] [address] [place], [address] Basophils/100 WBC (Bld) 0.6 % Normal 0-1 [facility] [place] Comment on above: Performed By: #### L 500.2500, L100.0100 ####[facility] [address] [place], [address] Eosinophils/100 WBC (Bld) 2.0 % Normal 0-5 [facility] Comment on above: Performed By: #### L 500.2500, L100.0100 ####[facility] [address] [place], [address] Erythrocyte distribution width (RBC) [Ratio] 19.8 % High 11.6-14.6 [facility] Comment on above: Performed By: #### L 500.2500, L100.0100 ####[facility] [address] [place], [address] Hematocrit (Bld) [Volume fraction] 29.3 % Low 37-47 [facility] Comment on above: Performed By: #### L 500.2500, L100.0100 ####[facility] [address] [place], [address] Hemoglobin (Bld) [Mass/Vol] 8.7 g/dL Low 12.0-15.0 [facility] Comment on above: Performed By: #### L 500.2500, L100.0100 ####[facility] [address] [place], [address] IG% 0.700 Normal 0.0-0.9 [facility] Comment on above: Result Comment: IG% - Immature Granulocytes (promyelocytes, myelocytes andmetamyelocytes) > 1% indicates that a LEFT SHIFT is Present. Performed By: #### L 500.2500, L100.0100 ####[facility] [address] [place], [address] Lymphocytes/100 WBC (Bld) 9.7 % Low 19-41 [facility] Comment on above: Performed By: #### L 500.2500, L100.0100 ####[facility] [address] [place], [address] MCH (RBC) [Entitic mass] 22.0 pg Low 27.0-32.0 [facility] Comment on above: Performed By: #### L 500.2500, L100.0100 ####[facility] [address] [place], [address] MCHC (RBC) [Mass/Vol] 29.7 g/dL Low 32-36 [facility] Comment on above: Performed By: #### L 500.2500, L100.0100 ####[facility] [address] [place], [address] MCV (RBC) [Entitic vol] 74.2 fL Low 81-99 [facility] Comment on above: Performed By: #### L 500.2500, L100.0100 ####[facility] [address] [place], [address] Monocytes/100 WBC (Bld) 6.4 % Normal 0-10 [facility] Comment on above: Performed By: #### L 500.2500, L100.0100 ####[facility] [address] [place], [address] Neutrophils/100 WBC (Bld) 80.6 % High 47-70 [facility] Comment on above: Performed By: #### L 500.2500, L100.0100 ####[facility] [address] [place], [address] Nucleated RBC (Bld) [#/Vol] 0 10*3/uL Normal 0-5 [facility] Comment on above: Performed By: #### L 500.2500, L100.0100 ####[facility] [address] [place], [address] Platelet mean volume (Bld) [Entitic vol] 10.8 fL Normal 6.2-12.0 [facility] Comment on above: Performed By: #### L 500.2500, L100.0100 ####[facility] [address] [place], [address] Platelets (Bld) [#/Vol] 401 10*3/uL Normal 150-450 [facility] Comment on above: Performed By: #### L 500.2500, L100.0100 ####[facility] [address] [place], [address] RBC (Bld) [#/Vol] 3.95 10*6/uL Low 4.2-5.4 [facility] Comment on above: Performed By: #### L 500.2500, L100.0100 ####[facility] [address] [place], [address] RDW SD 52.0 fl High 35.1-43.9 [facility] Comment on above: Performed By: #### L 500.2500, L100.0100 ####[facility] [address] [place], [address] WBC (Bld) [#/Vol] 8.9 10*3/uL Normal 4.4-11.0 [facility] Comment on above: Performed By: #### L 500.2500, L100.0100 ####[facility] [address] [place], [address] Basic Metabolic Profile (BMP )on 02-21-2025 BUN/CRE 31.0 RATIO High 10-20 [facility] Comment on above: Performed By: #### L 100.0100, L500.2500 ####[facility] [address] [place], [address] Calcium [Mass/Vol] 9.4 mg/dL Normal 7.6-11.0 [facility] Comment on above: Performed By: #### L 100.0100, L500.2500 ####[facility] [address] [place], [address] Chloride [Moles/Vol] 97 mmol/L Low 98-108 [facility] Comment on above: Performed By: #### L 100.0100, L500.2500 ####[facility] [address] [place], [address] CO2 [Moles/Vol] 21.7 mmol/L Normal 21.0-32.0 [facility] Comment on above: Performed By: #### L 100.0100, L500.2500 ####[facility] [address] [place], [address] Creatinine [Mass/Vol] 1.75 mg/dL High 0.70-1.20 [facility] Comment on above: Performed By: #### L 100.0100, L500.2500 ####[facility] [address] [place], [address] ECRCL 33.37 ml/min Low 50-250 [facility] Comment on above: Performed By: #### L 100.0100, L500.2500 ####[facility] [address] [place], [address] GAP 13 Normal 5-15 [facility] Comment on above: Performed By: #### L 100.0100, L500.2500 ####[facility] [address] [place], [address] GFR/1.73 sq M.predicted among non-blacks MDRD (S/P/Bld) [Vol rate/Area] 30 mL/min/{1.73_m2} Low >60 [facility] Comment on above: Result Comment: mL/m in/1.73m2 CKD-EPI Creatinine Equation (2020) Performed By: #### L 100.0100, L500.2500 ####[facility] [address] [place], [address] Glucose [Mass/Vol] 120 mg/dL High 70-99 [facility] Comment on above: Performed By: #### L 100.0100, L500.2500 ####[facility] [address] [place], [address] Potassium [Moles/Vol] 3.7 mmol/L Normal 3.3-5.1 [facility] Comment on above: Performed By: #### L 100.0100, L500.2500 ####[facility] [address] [place], [address] Sodium [Moles/Vol] 132 mmol/L Low 133-145 [facility] Comment on above: Performed By: #### L 100.0100, L500.2500 ####[facility] [address] [place], [address] Urea nitrogen [Mass/Vol] 54 mg/dL High 4-19 [facility] Comment on above: Performed By: #### L 100.0100, L500.2500 ####[facility] [address] [place], [address] Bedside Glucoseon 02-21-2025 FINGERSTICK GLU 114 mg/dL High 74-106 [facility] Comment on above: Result Comment: VI GEMENT OF PATIENT CARE PER NURSING PROTOCOL Performed By: #### L 501.080 ####[facility] [address] [place], [address] FINGERSTICK GLU 162 mg/dL High 74-106 [facility] Comment on above: Result Comment: VI GEMENT OF PATIENT CARE PER NURSING PROTOCOL Performed By: #### L 501.080 ####[facility] [address] [place], [address] FINGERSTICK GLU 51 mg/dL Low 74-106 [facility] Comment on above: Result Comment: VI GEMENT OF PATIENT CARE PER NURSING PROTOCOL Performed By: #### L 501.080 ####[facility] [address] [place], [address] FINGERSTICK GLU 89 mg/dL Normal 74-106 [facility] Comment on above: Result Comment: VI GEMENT OF PATIENT CARE PER NURSING PROTOCOL Performed By: #### L 501.080 ####[facility] [address] [place], [address] FINGERSTICK GLU 73 mg/dL Low 74-106 [facility] Comment on above: Result Comment: VI GEMENT OF PATIENT CARE PER NURSING PROTOCOL Performed By: #### L 501.080 ####[facility] [address] [place], [address] FINGERSTICK GLU 41 mg/dL Invalid Interpretation Code 74-106 [facility] Comment on above: Result Comment: Dr Shawn padilla FollowedMANAGEMENT OF PATIENT CARE PER NURSING PROTOCOL Performed By: #### L 501.080 ####[facility] [address] [place], [address] FINGERSTICK GLU 87 mg/dL Normal 74-106 [facility] Comment on above: Result Comment: VI GEMENT OF PATIENT CARE PER NURSING PROTOCOL Performed By: #### L 501.080 ####[facility] [address] [place], [address] CBC W/Diff, Automatedon 05-2 Absolute Lymph 1.00 X10 3/uL Normal 0.83-4.51 [facility] Comment on above: Performed By: #### L 100.0100, L500.2500 ####[facility] [address] [place], [address] Absolute Neut 7.9 X10 3/uL High 2.0-7.7 [facility] Comment on above: Performed By: #### L 100.0100, L500.2500 ####[facility] [address] [place], [address] Basophils/100 WBC (Bld) 0.7 % Normal 0-1 [facility] Comment on above: Performed By: #### L 100.0100, L500.2500 ####[facility] [address] [place], [address] Eosinophils/100 WBC (Bld) 1.9 % Normal 0-5 [facility] Comment on above: Performed By: #### L 100.0100, L500.2500 ####[facility] [address] [place], [address] Erythrocyte distribution width (RBC) [Ratio] 19.6 % High 11.6-14.6 [facility] Comment on above: Performed By: #### L 100.0100, L500.2500 ####[facility] [address] [place], [address] Hematocrit (Bld) [Volume fraction] 28.2 % Low 37-47 [facility] Comment on above: Performed By: #### L 100.0100, L500.2500 ####[facility] [address] [place], [address] Hemoglobin (Bld) [Mass/Vol] 8.4 g/dL Low 12.0-15.0 [facility] Comment on above: Performed By: #### L 100.0100, L500.2500 ####[facility] [address] [place], [address] IG% 0.500 Normal 0.0-0.9 [facility] Comment on above: Result Comment: IG% - Immature Granulocytes (promyelocytes, myelocytes andmetamyelocytes) > 1% indicates that a LEFT SHIFT is Present. Performed By: #### L 100.0100, L500.2500 ####[facility] [address] [place], [address] Lymphocytes/100 WBC (Bld) 9.9 % Low 19-41 [facility] Comment on above: Performed By: #### L 100.0100, L500.2500 ####[facility] [address] [place], [address] MCH (RBC) [Entitic mass] 22.2 pg Low 27.0-32.0 [facility] Comment on above: Performed By: #### L 100.0100, L500.2500 ####[facility] [address] [place], [address] MCHC (RBC) [Mass/Vol] 29.8 g/dL Low 32-36 [facility] Comment on above: Performed By: #### L 100.0100, L500.2500 ####[facility] [address] [place], [address] MCV (RBC) [Entitic vol] 74.4 fL Low 81-99 [facility] Comment on above: Performed By: #### L 100.0100, L500.2500 ####[facility] [address] [place], [address] Monocytes/100 WBC (Bld) 8.3 % Normal 0-10 [facility] Comment on above: Performed By: #### L 100.0100, L500.2500 ####[facility] [address] [place], [address] Neutrophils/100 WBC (Bld) 78.7 % High 47-70 [facility] Comment on above: Performed By: #### L 100.0100, L500.2500 ####[facility] [address] [place], [address] Nucleated RBC (Bld) [#/Vol] 0 10*3/uL Normal 0-5 [facility] Comment on above: Performed By: #### L 100.0100, L500.2500 ####[facility] [address] [place], [address] Platelet mean volume (Bld) [Entitic vol] 10.1 fL Normal 6.2-12.0 [facility] Comment on above: Performed By: #### L 100.0100, L500.2500 ####[facility] [address] [place], [address] Platelets (Bld) [#/Vol] 392 10*3/uL Normal 150-450 [facility] Comment on above: Performed By: #### L 100.0100, L500.2500 ####[facility] [address] [place], [address] RBC (Bld) [#/Vol] 3.79 10*6/uL Low 4.2-5.4 [facility] Comment on above: Performed By: #### L 100.0100, L500.2500 ####[facility] [address] [place], [address] RDW SD 51.9 fl High 35.1-43.9 [facility] Comment on above: Performed By: #### L 100.0100, L500.2500 ####[facility] [address] [place], [address] WBC (Bld) [#/Vol] 10.1 10*3/uL Normal 4.4-11.0 [facility] Comment on above: Performed By: #### L 100.0100, L500.2500 ####[facility] [address] [place], [address] EGD Reporton 02-21-2025 EGD Report Normal [facility] Basic Metabolic Profile (BMP )on 02-20-2025 BUN/CRE 35.1 RATIO High 10-20 [facility] Comment on above: Performed By: #### L 100.0100, L500.2500 ####[facility] [address] [place], [address] Calcium [Mass/Vol] 9.0 mg/dL Normal 7.6-11.0 [facility] Comment on above: Performed By: #### L 100.0100, L500.2500 ####[facility] [address] [place], [address] Chloride [Moles/Vol] 96 mmol/L Low 98-108 [facility] Comment on above: Performed By: #### L 100.0100, L500.2500 ####[facility] [address] [place], [address] CO2 [Moles/Vol] 19.6 mmol/L Low 21.0-32.0 [facility] Comment on above: Performed By: #### L 100.0100, L500.2500 ####[facility] [address] [place], [address] Creatinine [Mass/Vol] 2.47 mg/dL High 0.70-1.20 [facility] Comment on above: Performed By: #### L 100.0100, L500.2500 ####[facility] [address] [place], [address] ECRCL 23.85 ml/min Low 50-250 [facility] Comment on above: Performed By: #### L 100.0100, L500.2500 ####[facility] [address] [place], [address] GAP 14 Normal 5-15 [facility] Comment on above: Performed By: #### L 100.0100, L500.2500 ####[facility] [address] [place], [address] GFR/1.73 sq M.predicted among non-blacks MDRD (S/P/Bld) [Vol rate/Area] 20 mL/min/{1.73_m2} Low >60 [facility] Comment on above: Result Comment: mL/m in/1.73m2 CKD-EPI Creatinine Equation (2020) Performed By: #### L 100.0100, L500.2500 ####[facility] [address] [place], [address] Glucose [Mass/Vol] 143 mg/dL High 70-99 [facility] Comment on above: Performed By: #### L 100.0100, L500.2500 ####[facility] [address] [place], [address] Potassium [Moles/Vol] 3.8 mmol/L Normal 3.3-5.1 [facility] Comment on above: Performed By: #### L 100.0100, L500.2500 ####[facility] [address] [place], [address] Sodium [Moles/Vol] 129 mmol/L Low 133-145 [facility] Comment on above: Performed By: #### L 100.0100, L500.2500 ####[facility] [address] [place], [address] Urea nitrogen [Mass/Vol] 87 mg/dL High 4-19 [facility] Comment on above: Performed By: #### L 100.0100, L500.2500 ####[facility] [address] [place], [address] Bedside Glucoseon 02-20-2025 FINGERSTICK GLU 129 mg/dL High 74-106 [facility] Comment on above: Result Comment: VI GEMENT OF PATIENT CARE PER NURSING PROTOCOL Performed By: #### L 501.080 ####[facility] [address] [place], [address] FINGERSTICK GLU 138 mg/dL High 74-106 [facility] Comment on above: Result Comment: VI GEMENT OF PATIENT CARE PER NURSING PROTOCOL Performed By: #### L 501.080 ####[facility] [address] [place], [address] FINGERSTICK GLU 140 mg/dL High 74-106 [facility] Comment on above: Result Comment: Dr Shawn padilla FollowedMANAGEMENT OF PATIENT CARE PER NURSING PROTOCOL Performed By: #### L 501.080 ####[facility] [address] [place], [address] FINGERSTICK GLU 111 mg/dL High 74-106 [facility] Comment on above: Result Comment: VI GEMENT OF PATIENT CARE PER NURSING PROTOCOL Performed By: #### L 501.080 ####[facility] [address] [place], [address] FINGERSTICK GLU 142 mg/dL High 74-106 [facility] Comment on above: Result Comment: VI GEMENT OF PATIENT CARE PER NURSING PROTOCOL Performed By: #### L 501.080 ####[facility] [address] [place], [address] FINGERSTICK GLU 208 mg/dL High 74-106 [facility] Comment on above: Result Comment: VI GEMENT OF PATIENT CARE PER NURSING PROTOCOL Performed By: #### L 501.080 ####[facility] [address] [place], [address] CBC W/Diff, Automatedon 05-2 Absolute Lymph 1.04 X10 3/uL Normal 0.83-4.51 [facility] Comment on above: Performed By: #### L 100.0100, L500.2500 ####[facility] [address] [place], [address] Absolute Neut 9.6 X10 3/uL High 2.0-7.7 [facility] Comment on above: Performed By: #### L 100.0100, L500.2500 ####[facility] [address] [place], [address] Basophils/100 WBC (Bld) 0.8 % Normal 0-1 [facility] Comment on above: Performed By: #### L 100.0100, L500.2500 ####[facility] [address] [place], [address] Eosinophils/100 WBC (Bld) 2.0 % Normal 0-5 [facility] Comment on above: Performed By: #### L 100.0100, L500.2500 ####[facility] [address] [place], [address] Erythrocyte distribution width (RBC) [Ratio] 19.6 % High 11.6-14.6 [facility] Comment on above: Performed By: #### L 100.0100, L500.2500 ####[facility] [address] [place], [address] Hematocrit (Bld) [Volume fraction] 28.1 % Low 37-47 [facility] Comment on above: Performed By: #### L 100.0100, L500.2500 ####[facility] [address] [place], [address] Hemoglobin (Bld) [Mass/Vol] 8.3 g/dL Low 12.0-15.0 [facility] Comment on above: Performed By: #### L 100.0100, L500.2500 ####[facility] [address] [place], [address] IG% 0.500 Normal 0.0-0.9 [facility] Comment on above: Result Comment: IG% - Immature Granulocytes (promyelocytes, myelocytes andmetamyelocytes) > 1% indicates that a LEFT SHIFT is Present. Performed By: #### L 100.0100, L500.2500 ####[facility] [address] [place], [address] Lymphocytes/100 WBC (Bld) 8.8 % Low 19-41 [facility] Comment on above: Performed By: #### L 100.0100, L500.2500 ####[facility] [address] [place], [address] MCH (RBC) [Entitic mass] 21.7 pg Low 27.0-32.0 [facility] Comment on above: Performed By: #### L 100.0100, L500.2500 ####[facility] [address] [place], [address] MCHC (RBC) [Mass/Vol] 29.5 g/dL Low 32-36 [facility] Comment on above: Performed By: #### L 100.0100, L500.2500 ####[facility] [address] [place], [address] MCV (RBC) [Entitic vol] 73.4 fL Low 81-99 [facility] Comment on above: Performed By: #### L 100.0100, L500.2500 ####[facility] [address] [place], [address] Monocytes/100 WBC (Bld) 6.6 % Normal 0-10 [facility] Comment on above: Performed By: #### L 100.0100, L500.2500 ####[facility] [address] [place], [address] Neutrophils/100 WBC (Bld) 81.3 % High 47-70 [facility] Comment on above: Performed By: #### L 100.0100, L500.2500 ####[facility] [address] [place], [address] Nucleated RBC (Bld) [#/Vol] 0 10*3/uL Normal 0-5 [facility] Comment on above: Performed By: #### L 100.0100, L500.2500 ####[facility] [address] [place], [address] Platelet mean volume (Bld) [Entitic vol] 10.7 fL Normal 6.2-12.0 [facility] Comment on above: Performed By: #### L 100.0100, L500.2500 ####[facility] [address] [place], [address] Platelets (Bld) [#/Vol] 373 10*3/uL Normal 150-450 [facility] Comment on above: Performed By: #### L 100.0100, L500.2500 ####[facility] [address] [place], [address] RBC (Bld) [#/Vol] 3.83 10*6/uL Low 4.2-5.4 [facility] Comment on above: Performed By: #### L 100.0100, L500.2500 ####[facility] [address] [place], [address] RDW SD 50.8 fl High 35.1-43.9 [facility] Comment on above: Performed By: #### L 100.0100, L500.2500 ####[facility] [address] [place], [address] WBC (Bld) [#/Vol] 11.8 10*3/uL High 4.4-11.0 [facility] Comment on above: Performed By: #### L 100.0100, L500.2500 ####[facility] [address] [place], [address] Basic Metabolic Profile (BMP )on 02-19-2025 BUN/CRE 31.5 RATIO High 10-20 [facility] Comment on above: Performed By: #### L 100.0100, L500.2500 ####[facility] [address] [place], [address] Calcium [Mass/Vol] 9.0 mg/dL Normal 7.6-11.0 [facility] Comment on above: Performed By: #### L 100.0100, L500.2500 ####[facility] [address] [place], [address] Chloride [Moles/Vol] 96 mmol/L Low 98-108 [facility] Comment on above: Performed By: #### L 100.0100, L500.2500 ####[facility] [address] [place], [address] CO2 [Moles/Vol] 20.2 mmol/L Low 21.0-32.0 [facility] Comment on above: Performed By: #### L 100.0100, L500.2500 ####[facility] [address] [place], [address] Creatinine [Mass/Vol] 2.50 mg/dL High 0.70-1.20 [facility] Comment on above: Performed By: #### L 100.0100, L500.2500 ####[facility] [address] [place], [address] ECRCL 23.26 ml/min Low 50-250 [facility] Comment on above: Performed By: #### L 100.0100, L500.2500 ####[facility] [address] [place], [address] GAP 14 Normal 5-15 [facility] Comment on above: Performed By: #### L 100.0100, L500.2500 ####[facility] [address] [place], [address] GFR/1.73 sq M.predicted among non-blacks MDRD (S/P/Bld) [Vol rate/Area] 19 mL/min/{1.73_m2} Low >60 [facility] Comment on above: Result Comment: mL/m in/1.73m2 CKD-EPI Creatinine Equation (2020) Performed By: #### L 100.0100, L500.2500 ####[facility] [address] [place], [address] Glucose [Mass/Vol] 206 mg/dL High 70-99 [facility] Comment on above: Performed By: #### L 100.0100, L500.2500 ####[facility] [address] [place], [address] Potassium [Moles/Vol] 3.9 mmol/L Normal 3.3-5.1 [facility] Comment on above: Performed By: #### L 100.0100, L500.2500 ####[facility] [address] [place], [address] Sodium [Moles/Vol] 130 mmol/L Low 133-145 [facility] Comment on above: Performed By: #### L 100.0100, L500.2500 ####[facility] [address] [place], [address] Urea nitrogen [Mass/Vol] 79 mg/dL High 4-19 [facility] Comment on above: Performed By: #### L 100.0100, L500.2500 ####[facility] [address] [place], [address] Bedside Glucoseon 02-19-2025 FINGERSTICK GLU 151 mg/dL High 74-106 [facility] Comment on above: Result Comment: VI GEMENT OF PATIENT CARE PER NURSING PROTOCOL Performed By: #### L 501.080 ####[facility] [address] [place], [address] FINGERSTICK GLU 150 mg/dL High 74-106 [facility] Comment on above: Result Comment: VI GEMENT OF PATIENT CARE PER NURSING PROTOCOL Performed By: #### L 501.080 ####[facility] [facility] [address] [place], [address] FINGERSTICK GLU 157 mg/dL High 74-106 [facility] Comment on above: Result Comment: Dr Shawn padilla FollowedInsulin GivenMANAGEMENT OF PATIENT CARE PER NURSING PROTOCOL Performed By: #### L 501.080 ####[facility] [address] [place], [address] FINGERSTICK GLU 214 mg/dL High 74-106 [facility] Comment on above: Result Comment: VI GEMENT OF PATIENT CARE PER NURSING PROTOCOL Performed By: #### L 501.080 ####[facility] [address] [place], [address] CBC W/Diff, Automatedon 05-2 Absolute Lymph 1.01 X10 3/uL Normal 0.83-4.51 [facility] Comment on above: Performed By: #### L 100.0100, L500.2500 ####[facility] [address] [place], [address] Absolute Neut 11.5 X10 3/uL High 2.0-7.7 [facility] Comment on above: Performed By: #### L 100.0100, L500.2500 ####[facility] [address] [place], [address] Basophils/100 WBC (Bld) 0.7 % Normal 0-1 [facility] [place] Comment on above: Performed By: #### L 100.0100, L500.2500 ####[facility] [address] [place], [address] Eosinophils/100 WBC (Bld) 1.9 % Normal 0-5 [facility] Comment on above: Performed By: #### L 100.0100, L500.2500 ####[facility] [address] [place], [address] Erythrocyte distribution width (RBC) [Ratio] 19.7 % High 11.6-14.6 [facility] Comment on above: Performed By: #### L 100.0100, L500.2500 ####[facility] [address] [place], [address] Hematocrit (Bld) [Volume fraction] 26.6 % Low 37-47 [facility] Comment on above: Performed By: #### L 100.0100, L500.2500 ####[facility] [address] [place], [address] Hemoglobin (Bld) [Mass/Vol] 7.8 g/dL Low 12.0-15.0 [facility] Comment on above: Performed By: #### L 100.0100, L500.2500 ####[facility] [address] [place], [address] IG% 0.600 Normal 0.0-0.9 [facility] Comment on above: Result Comment: IG% - Immature Granulocytes (promyelocytes, myelocytes andmetamyelocytes) > 1% indicates that a LEFT SHIFT is Present. Performed By: #### L 100.0100, L500.2500 ####[facility] [address] [place], [address] Lymphocytes/100 WBC (Bld) 7.3 % Low 19-41 [facility] Comment on above: Performed By: #### L 100.0100, L500.2500 ####[facility] [address] [place], [address] MCH (RBC) [Entitic mass] 21.9 pg Low 27.0-32.0 [facility] Comment on above: Performed By: #### L 100.0100, L500.2500 ####[facility] [address] [place], [address] MCHC (RBC) [Mass/Vol] 29.3 g/dL Low 32-36 [facility] Comment on above: Performed By: #### L 100.0100, L500.2500 ####[facility] [address] [place], [address] MCV (RBC) [Entitic vol] 74.7 fL Low 81-99 [facility] [place] Comment on above: Performed By: #### L 100.0100, L500.2500 ####[facility] [address] [place], [address] Monocytes/100 WBC (Bld) 6.8 % Normal 0-10 [facility] [place] Comment on above: Performed By: #### L 100.0100, L500.2500 ####[facility] [address] [place], [address] Neutrophils/100 WBC (Bld) 82.7 % High 47-70 [facility] Comment on above: Performed By: #### L 100.0100, L500.2500 ####[facility] [address] [place], [address] Nucleated RBC (Bld) [#/Vol] 0 10*3/uL Normal 0-5 [facility] Comment on above: Performed By: #### L 100.0100, L500.2500 ####[facility] [address] [place], [address] Platelet mean volume (Bld) [Entitic vol] 11.4 fL Normal 6.2-12.0 [facility] Comment on above: Performed By: #### L 100.0100, L500.2500 ####[facility] [address] [place], [address] Platelets (Bld) [#/Vol] 359 10*3/uL Normal 150-450 [facility] Comment on above: Performed By: #### L 100.0100, L500.2500 ####[facility] [address] [place], [address] RBC (Bld) [#/Vol] 3.56 10*6/uL Low 4.2-5.4 [facility] Comment on above: Performed By: #### L 100.0100, L500.2500 ####[facility] [address] [place], [address] RDW SD 52.3 fl High 35.1-43.9 [facility] Comment on above: Performed By: #### L 100.0100, L500.2500 ####[facility] [address] [place], [address] WBC (Bld) [#/Vol] 13.9 10*3/uL High 4.4-11.0 [facility] Comment on above: Performed By: #### L 100.0100, L500.2500 ####[facility] [address] [place], [address] Basic Metabolic Profile (BMP )on 02-18-2025 BUN/CRE 29.3 RATIO High 10-20 [facility] Comment on above: Performed By: #### L 100.0100, L500.2500 ####[facility] [address] [place], [address] Calcium [Mass/Vol] 9.1 mg/dL Normal 7.6-11.0 [facility] Comment on above: Performed By: #### L 100.0100, L500.2500 ####[facility] [address] [place], [address] Chloride [Moles/Vol] 98 mmol/L Normal 98-108 [facility] Comment on above: Performed By: #### L 100.0100, L500.2500 ####[facility] [address] [place], [address] CO2 [Moles/Vol] 21.2 mmol/L Normal 21.0-32.0 [facility] Comment on above: Performed By: #### L 100.0100, L500.2500 ####[facility] [address] [place], [address] Creatinine [Mass/Vol] 2.31 mg/dL High 0.70-1.20 [facility] Comment on above: Performed By: #### L 100.0100, L500.2500 ####[facility] [address] [place], [address] ECRCL 24.85 ml/min Low 50-250 [facility] Comment on above: Performed By: #### L 100.0100, L500.2500 ####[facility] [address] [place], [address] GAP 14 Normal 5-15 [facility] Comment on above: Performed By: #### L 100.0100, L500.2500 ####[facility] [address] [place], [address] GFR/1.73 sq M.predicted among non-blacks MDRD (S/P/Bld) [Vol rate/Area] 21 mL/min/{1.73_m2} Low >60 [facility] Comment on above: Result Comment: mL/m in/1.73m2 CKD-EPI Creatinine Equation (2020) Performed By: #### L 100.0100, L500.2500 ####[facility] [address] [place], [address] Glucose [Mass/Vol] 218 mg/dL High 70-99 [facility] Comment on above: Performed By: #### L 100.0100, L500.2500 ####[facility] [address] [place], [address] Potassium [Moles/Vol] 3.9 mmol/L Normal 3.3-5.1 [facility] Comment on above: Performed By: #### L 100.0100, L500.2500 ####[facility] [address] [place], [address] Sodium [Moles/Vol] 133 mmol/L Normal 133-145 [facility] Comment on above: Performed By: #### L 100.0100, L500.2500 ####[facility] [address] [place], [address] Urea nitrogen [Mass/Vol] 68 mg/dL High 4-19 [facility] Comment on above: Performed By: #### L 100.0100, L500.2500 ####[facility] [address] [place], [address] Bedside Glucoseon 02-18-2025 FINGERSTICK GLU 178 mg/dL High 74-106 [facility] Comment on above: Result Comment: Dr Shawn padilla FollowedMANAGEMENT OF PATIENT CARE PER NURSING PROTOCOL Performed By: #### L 501.080 ####[facility] [address] [place], [address] FINGERSTICK GLU 181 mg/dL High 74-106 [facility] Comment on above: Result Comment: Dr Shawn padilla FollowedMANAGEMENT OF PATIENT CARE PER NURSING PROTOCOL Performed By: #### L 501.080 ####[facility] [address] [place], [address] FINGERSTICK GLU 197 mg/dL High 74-106 [facility] Comment on above: Result Comment: VI GEMENT OF PATIENT CARE PER NURSING PROTOCOL Performed By: #### L 501.080 ####[facility] [address] [place], [address] FINGERSTICK GLU 200 mg/dL High [address] [place] [address] Comment on above: Result Comment: VI GEMENT OF PATIENT CARE PER NURSING PROTOCOL Performed By: #### L 501.080 ####[facility] [address] [place], [address] CBC W/Diff, Automatedon 05-2 Anisocytosis Ql (Bld) 2+ Normal [facility] Comment on above: Performed By: #### L 100.0100, L500.2500 ####[facility] [address] [place], [address] OVALOCYTE 2+ Normal [facility] Comment on above: Performed By: #### L 100.0100, L500.2500 ####[facility] [address] [place], [address] PLT EST ADEQUATE Normal ADEQ [facility] Comment on above: Performed By: #### L 100.0100, L500.2500 ####[facility] [address] [place], [address] SMEAR COMMENT SCANNED Normal [facility] Comment on above: Performed By: #### L 100.0100, L500.2500 ####[facility] [address] [place], [address] Basic Metabolic Profile (BMP )on 02-17-2025 BUN/CRE 34.0 RATIO High 10-20 [facility] Comment on above: Performed By: #### L 100.0100, L500.2500 ####[facility] [address] [place], [address] Calcium [Mass/Vol] 9.5 mg/dL Normal 7.6-11.0 [facility] Comment on above: Performed By: #### L 100.0100, L500.2500 ####[facility] [address] [place], [address] Chloride [Moles/Vol] 97 mmol/L Low 98-108 [facility] Comment on above: Performed By: #### L 100.0100, L500.2500 ####[facility] [address] [place], [address] CO2 [Moles/Vol] 22.8 mmol/L Normal 21.0-32.0 [facility] Comment on above: Performed By: #### L 100.0100, L500.2500 ####[facility] [address] [place], [address] Creatinine [Mass/Vol] 2.35 mg/dL High 0.70-1.20 [facility] Comment on above: Performed By: #### L 100.0100, L500.2500 ####[facility] [address] [place], [address] ECRCL 24.22 ml/min Low 50-250 [facility] Comment on above: Performed By: #### L 100.0100, L500.2500 ####[facility] [address] [place], [address] GAP 15 Normal 5-15 [facility] Comment on above: Performed By: #### L 100.0100, L500.2500 ####[facility] [address] [place], [address] GFR/1.73 sq M.predicted among non-blacks MDRD (S/P/Bld) [Vol rate/Area] 21 mL/min/{1.73_m2} Low >60 [facility] Comment on above: Result Comment: mL/m in/1.73m2 CKD-EPI Creatinine Equation (2020) Performed By: #### L 100.0100, L500.2500 ####[facility] [address] [place], [address] Glucose [Mass/Vol] 256 mg/dL High 70-99 [facility] Comment on above: Performed By: #### L 100.0100, L500.2500 ####[facility] [address] [place], [address] Potassium [Moles/Vol] 3.9 mmol/L Normal 3.3-5.1 [facility] Comment on above: Performed By: #### L 100.0100, L500.2500 ####[facility] [address] [place], [address] Sodium [Moles/Vol] 135 mmol/L Normal 133-145 [facility] Comment on above: Performed By: #### L 100.0100, L500.2500 ####[facility] [address] [place], [address] Urea nitrogen [Mass/Vol] 80 mg/dL High 4-19 [facility] Comment on above: Performed By: #### L 100.0100, L500.2500 ####[facility] [address] [place], [address] Bedside Glucoseon 02-17-2025 FINGERSTICK GLU 169 mg/dL High 74-106 [facility] Comment on above: Result Comment: VI GEMENT OF PATIENT CARE PER NURSING PROTOCOL Performed By: #### L 501.080 ####[facility] [address] [place], [address] FINGERSTICK GLU 150 mg/dL High 74-106 [facility] Comment on above: Result Comment: VI GEMENT OF PATIENT CARE PER NURSING PROTOCOL Performed By: #### L 501.080 ####[facility] [address] [place], [address] FINGERSTICK GLU 221 mg/dL High 74-106 [facility] Comment on above: Result Comment: VI GEMENT OF PATIENT CARE PER NURSING PROTOCOL Performed By: #### L 501.080 ####[facility] [address] [place], [address] FINGERSTICK GLU 240 mg/dL High -106 [facility] Comment on above: Result Comment: VI GEMENT OF PATIENT CARE PER NURSING PROTOCOL Performed By: #### L 501.080 ####[facility] [address] [place], [address] Blood Gases by [facility] 02-17- 025 DANIEL TEST Positive Normal [facility] Comment on above: Performed By: #### L 9000.0800 ####[facility] [address] [place], [address] Base excess Calc (Bld) [Moles/Vol] 4 mmol/L High -2 to +2 [facility] Comment on above: Performed By: #### L 9000.0800 ####[facility] [address] [place], [address] Blood Gas Type ART Normal [facility] Comment on above: Performed By: #### L 9000.0800 ####[facility] [address] [place], [address] CO2 [Moles/Vol] 29 mmol/L Normal [facility] Comment on above: Performed By: #### L 9000.0800 ####[facility] [address] [place], [address] FI02 24.0 Normal [facility] Comment on above: Performed By: #### L 9000.0800 ####[facility] [address] [place], [address] HCO3 (Bld) [Moles/Vol] 27.6 mmol/L High 22-26 [facility] Comment on above: Performed By: #### L 9000.0800 ####[facility] [address] [place], [address] Mode PS Normal [facility] Comment on above: Performed By: #### L 9000.0800 ####[facility] [address] [place], [address] O2 Delivery Dev Adult Vent Normal [facility] Comment on above: Performed By: #### L 9000.0800 ####[facility] [address] [place], [address] pCO2 36.5 mmHg Normal 35-45 [facility] Comment on above: Performed By: #### L 9000.0800 ####[facility] [address] [place], [address] PEEP 5 Normal [facility] Comment on above: Performed By: #### L 9000.0800 ####[facility] [address] [place], [address] pH (Bld) 7.49 [pH] High 7.35-7.45 [facility] Comment on above: Performed By: #### L 9000.0800 ####[facility] [address] [place], [address] PO2 65 mmHG Low 75-100 [facility] Comment on above: Performed By: #### L 9000.0800 ####[facility] [address] [place], [address] SITE R Radial Normal [facility] Comment on above: Performed By: #### L 9000.0800 ####[facility] [address] [place], [address] SO2 94 Low 95-99 [facility] Comment on above: Performed By: #### L 9000.0800 ####[facility] [address] [place], [address] CBC W/Diff, Automatedon 05-2 -2024 Absolute Lymph 1.14 X10 3/uL Normal 0.83-4.51 [facility] Comment on above: Performed By: #### L 100.0100, L500.2500 ####[facility] [address] [place], [address] Absolute Neut 13.0 X10 3/uL High 2.0-7.7 [facility] Comment on above: Performed By: #### L 100.0100, L500.2500 ####[facility] [address] [place], [address] Basophils/100 WBC (Bld) 0.5 % Normal 0-1 [facility] Comment on above: Performed By: #### L 100.0100, L500.2500 ####[facility] [address] [place], [address] Eosinophils/100 WBC (Bld) 1.3 % Normal 0-5 [facility] Comment on above: Performed By: #### L 100.0100, L500.2500 ####[facility] [address] [place], [address] Erythrocyte distribution width (RBC) [Ratio] 19.9 % High 11.6-14.6 [facility] Comment on above: Performed By: #### L 100.0100, L500.2500 ####[facility] [address] [place], [address] Hematocrit (Bld) [Volume fraction] 30.7 % Low 37-47 [facility] Comment on above: Performed By: #### L 100.0100, L500.2500 ####[facility] [address] [place], [address] Hemoglobin (Bld) [Mass/Vol] 9.0 g/dL Low 12.0-15.0 [facility] Comment on above: Performed By: #### L 100.0100, L500.2500 ####[facility] [address] [place], [address] IG% 0.600 Normal 0.0-0.9 [facility] Comment on above: Result Comment: IG% - Immature Granulocytes (promyelocytes, myelocytes andmetamyelocytes) > 1% indicates that a LEFT SHIFT is Present. Performed By: #### L 100.0100, L500.2500 ####[facility] [address] [place], [address] Lymphocytes/100 WBC (Bld) 7.2 % Low 19-41 [facility] Comment on above: Performed By: #### L 100.0100, L500.2500 ####[facility] [address] [place], [address] MCH (RBC) [Entitic mass] 22.0 pg Low 27.0-32.0 [facility] Comment on above: Performed By: #### L 100.0100, L500.2500 ####[facility] [address] [place], [address] MCHC (RBC) [Mass/Vol] 29.3 g/dL Low 32-36 [facility] Comment on above: Performed By: #### L 100.0100, L500.2500 ####[facility] [address] [place], [address] MCV (RBC) [Entitic vol] 74.9 fL Low 81-99 [facility] [place] Comment on above: Performed By: #### L 100.0100, L500.2500 ####[facility] [address] [place], [address] Monocytes/100 WBC (Bld) 8.0 % Normal 0-10 [facility] Comment on above: Performed By: #### L 100.0100, L500.2500 ####[facility] [address] [place], [address] Neutrophils/100 WBC (Bld) 82.4 % High 47-70 [facility] Comment on above: Performed By: #### L 100.0100, L500.2500 ####[facility] [address] [place], [address] Nucleated RBC (Bld) [#/Vol] 0 10*3/uL Normal 0-5 [facility] Comment on above: Performed By: #### L 100.0100, L500.2500 ####[facility] [address] [place], [address] Platelet mean volume (Bld) [Entitic vol] 10.8 fL Normal 6.2-12.0 [facility] Comment on above: Performed By: #### L 100.0100, L500.2500 ####[facility] [address] [place], [address] Platelets (Bld) [#/Vol] 323 10*3/uL Normal 150-450 [facility] Comment on above: Performed By: #### L 100.0100, L500.2500 ####[facility] [address] [place], [address] RBC (Bld) [#/Vol] 4.10 10*6/uL Low 4.2-5.4 [facility] Comment on above: Performed By: #### L 100.0100, L500.2500 ####[facility] [address] [place], [address] RDW SD 51.8 fl High 35.1-43.9 [facility] Comment on above: Performed By: #### L 100.0100, L500.2500 ####[facility] [address] [place], [address] WBC (Bld) [#/Vol] 15.8 10*3/uL High 4.4-11.0 [facility] Comment on above: Performed By: #### L 100.0100, L500.2500 ####[facility] [address] [place], [address] Chest 1 View (Portable)on Chest 1 View (Portable) Normal [facility] [place] Basic Metabolic Profile (BMP )on 02-16-2025 Urea nitrogen [Mass/Vol] 130 mg/dL Invalid Interpretation Code 01-13 [facility] Comment on above: Result Comment: Crit ical Result(s) Called at:02/16/2025-08:32 by: Salvatore to Rufina Mena??Results read back by same. Performed By: #### L 501.5200, L501.2300, L500.2500 ####[facility] [address] [place], [address] Bedside Glucoseon 02-16-2025 FINGERSTICK GLU 224 mg/dL High 74-106 [facility] Comment on above: Result Comment: VI GEMENT OF PATIENT CARE PER NURSING PROTOCOL Performed By: #### L 501.080 ####[facility] [address] [place], [address] FINGERSTICK GLU 200 mg/dL High 74-106 [facility] Comment on above: Result Comment: VI GEMENT OF PATIENT CARE PER NURSING PROTOCOL Performed By: #### L 501.080 ####[facility] [address] [place], [address] FINGERSTICK GLU 143 mg/dL High 74-106 [facility] Comment on above: Result Comment: VI GEMENT OF PATIENT CARE PER NURSING PROTOCOL Performed By: #### L 501.080 ####[facility] [address] [place], [address] FINGERSTICK GLU 103 mg/dL Normal 74-106 [facility] Comment on above: Result Comment: VI GEMENT OF PATIENT CARE PER NURSING PROTOCOL Performed By: #### L 501.080 ####[facility] [address] [place], [address] FINGERSTICK GLU 153 mg/dL High 74-106 [facility] Comment on above: Result Comment: VI GEMENT OF PATIENT CARE PER NURSING PROTOCOL Performed By: #### L 501.080 ####[facility] [address] [place], [address] FINGERSTICK GLU 192 mg/dL High 74-106 [facility] Comment on above: Result Comment: VI GEMENT OF PATIENT CARE PER NURSING PROTOCOL Performed By: #### L 501.080 ####[facility] [address] [place], [address] CBC W/Diff, Automatedon 05-2 -2024 Absolute Lymph 1.18 X10 3/uL Normal 0.83-4.51 [facility] Comment on above: Performed By: #### L 100.0100 ####[facility] [address] [place], [address] Absolute Neut 11.2 X10 3/uL High 2.0-7.7 [facility] Comment on above: Performed By: #### L 100.0100 ####[facility] [address] [place], [address] Basophils/100 WBC (Bld) 0.6 % Normal 0-1 [facility] Comment on above: Performed By: #### L 100.0100 ####[facility] [address] [place], [address] Eosinophils/100 WBC (Bld) 1.7 % Normal 0-5 [facility] Comment on above: Performed By: #### L 100.0100 ####[facility] [address] [place], [address] Erythrocyte distribution width (RBC) [Ratio] 19.5 % High 11.6-14.6 [facility] Comment on above: Performed By: #### L 100.0100 ####[facility] [address] [place], [address] Hematocrit (Bld) [Volume fraction] 28.9 % Low 37-47 [facility] Comment on above: Performed By: #### L 100.0100 ####[facility] [address] [place], [address] Hemoglobin (Bld) [Mass/Vol] 8.7 g/dL Low 12.0-15.0 [facility] Comment on above: Performed By: #### L 100.0100 ####[facility] [address] [place], [address] IG% 0.600 Normal 0.0-0.9 [facility] Comment on above: Result Comment: IG% - Immature Granulocytes (promyelocytes, myelocytes andmetamyelocytes) > 1% indicates that a LEFT SHIFT is Present. Performed By: #### L 100.0100 ####[facility] [address] [place], [address] Lymphocytes/100 WBC (Bld) 8.5 % Low 19-41 [facility] Comment on above: Performed By: #### L 100.0100 ####[facility] [address] [place], [address] MCH (RBC) [Entitic mass] 22.2 pg Low 27.0-32.0 [facility] Comment on above: Performed By: #### L 100.0100 ####[facility] [address] [place], [address] MCHC (RBC) [Mass/Vol] 30.1 g/dL Low 32-36 [facility] Comment on above: Performed By: #### L 100.0100 ####[facility] [address] [place], [address] MCV (RBC) [Entitic vol] 73.7 fL Low 81-99 [facility] Comment on above: Performed By: #### L 100.0100 ####[facility] [address] [place], [address] Monocytes/100 WBC (Bld) 8.4 % Normal 0-10 [facility] Comment on above: Performed By: #### L 100.0100 ####[facility] [address] [place], [address] Neutrophils/100 WBC (Bld) 80.2 % High 47-70 [facility] Comment on above: Performed By: #### L 100.0100 ####[facility] [address] [place], [address] Nucleated RBC (Bld) [#/Vol] 0 10*3/uL Normal 0-5 [facility] Comment on above: Performed By: #### L 100.0100 ####[facility] [address] [place], [address] Platelet mean volume (Bld) [Entitic vol] 11.1 fL Normal 6.2-12.0 [facility] Comment on above: Performed By: #### L 100.0100 ####[facility] [address] [place], [address] Platelets (Bld) [#/Vol] 257 10*3/uL Normal 150-450 [facility] Comment on above: Performed By: #### L 100.0100 ####[facility] [address] [place], [address] RBC (Bld) [#/Vol] 3.92 10*6/uL Low 4.2-5.4 [facility] Comment on above: Performed By: #### L 100.0100 ####[facility] [address] [place], [address] RDW SD 49.7 fl High 35.1-43.9 [facility] Comment on above: Performed By: #### L 100.0100 ####[facility] [address] [place], [address] WBC (Bld) [#/Vol] 13.9 10*3/uL High 4.4-11.0 [facility] Comment on above: Performed By: #### L 100.0100 ####[facility] [address] [place], [address] CPK Total, Creatine Kinaseon 02-16-2025 CPK TOTAL 34 U/L Normal 24-195 [facility] Comment on above: Performed By: #### L 501.3620 ####[facility] [address] [place], [address] Magnesiumon 02-16-2025 Magnesium [Mass/Vol] 2.3 mg/dL High 1.5-2.2 [facility] Comment on above: Performed By: #### L 501.5200, L501.2300, L500.2500 ####[facility] [address] [place], [address] Phosphoruson 02-16-2025 Phosphate [Mass/Vol] 4.7 mg/dL High 2.7-4.5 [facility] Comment on above: Performed By: #### L 501.5200, L501.2300, L500.2500 ####[facility] [address] [place], [address] Basic Metabolic Profile (BMP )on 02-15-2025 BUN/CRE 53.6 RATIO High 10-20 [facility] Comment on above: Performed By: #### L 100.0100, L501.5200, L500.2500 ####[facility] [address] [place], [address] Calcium [Mass/Vol] 8.6 mg/dL Normal 7.6-11.0 [facility] Comment on above: Performed By: #### L 100.0100, L501.5200, L500.2500 ####[facility] [address] [place], [address] Chloride [Moles/Vol] 96 mmol/L Low 98-108 [facility] Comment on above: Performed By: #### L 100.0100, L501.5200, L500.2500 ####[facility] [address] [place], [address] CO2 [Moles/Vol] 26.7 mmol/L Normal 21.0-32.0 [facility] Comment on above: Performed By: #### L 100.0100, L501.5200, L500.2500 ####[facility] [address] [place], [address] Creatinine [Mass/Vol] 2.22 mg/dL High 0.70-1.20 [facility] Comment on above: Performed By: #### L 100.0100, L501.5200, L500.2500 ####[facility] [address] [place], [address] ECRCL 26.18 ml/min Low 50-250 [facility] Comment on above: Performed By: #### L 100.0100, L501.5200, L500.2500 ####[facility] [address] [place], [address] GAP 17 High 5-15 [facility] Comment on above: Performed By: #### L 100.0100, L501.5200, L500.2500 ####[facility] [address] [place], [address] GFR/1.73 sq M.predicted among non-blacks MDRD (S/P/Bld) [Vol rate/Area] 22 mL/min/{1.73_m2} Low >60 [facility] Comment on above: Result Comment: mL/m in/1.73m2 CKD-EPI Creatinine Equation (2020) Performed By: #### L 100.0100, L501.5200, L500.2500 ####[facility] [address] [place], [address] Glucose [Mass/Vol] 237 mg/dL High 70-99 [facility] Comment on above: Performed By: #### L 100.0100, L501.5200, L500.2500 ####[facility] [address] [place], [address] Potassium [Moles/Vol] 3.0 mmol/L Low 3.3-5.1 [facility] Comment on above: Performed By: #### L 100.0100, L501.5200, L500.2500 ####[facility] [address] [place], [address] Sodium [Moles/Vol] 139 mmol/L Normal 133-145 [facility] Comment on above: Performed By: #### L 100.0100, L501.5200, L500.2500 ####[facility] [address] [place], [address] Urea nitrogen [Mass/Vol] 119 mg/dL Invalid Interpretation Code 4-19 [facility] Comment on above: Result Comment: Crit ical Result(s) Called at: 0515 by:??HERMELINDO HAVEN MORTEZA GIVENS Results read back by same. Performed By: #### L 100.0100, L501.5200, L500.2500 ####[facility] [address] [place], [address] Bedside Glucoseon 02-15-2025 FINGERSTICK GLU 220 mg/dL High -106 [facility] Comment on above: Result Comment: VI GEMENT OF PATIENT CARE PER NURSING PROTOCOL Performed By: #### L 501.080 ####[facility] [address] [place], [address] FINGERSTICK GLU 208 mg/dL High [address] [place] [address] Comment on above: Result Comment: VI GEMENT OF PATIENT CARE PER NURSING PROTOCOL Performed By: #### L 501.080 ####[facility] [address] [place], [address] FINGERSTICK GLU 241 mg/dL High [address] [place] [address] Comment on above: Result Comment: VI GEMENT OF PATIENT CARE PER NURSING PROTOCOL Performed By: #### L 501.080 ####[facility] [address] [place], [address] FINGERSTICK GLU 201 mg/dL High [address] [place] [address] Comment on above: Result Comment: VI GEMENT OF PATIENT CARE PER NURSING PROTOCOL Performed By: #### L 501.080 ####[facility] [address] [place], [address] FINGERSTICK GLU 222 mg/dL High -[address] [place] [address] Comment on above: Result Comment: VI GEMENT OF PATIENT CARE PER NURSING PROTOCOL Performed By: #### L 501.080 ####[facility] [address] [place], [address] FINGERSTICK GLU 232 mg/dL High [facility]106 [facility] Comment on above: Result Comment: VI GEMENT OF PATIENT CARE PER NURSING PROTOCOL Performed By: #### L 501.080 ####[facility] [address] [place], [address] Blood Gases by [facility] 025 DANIEL TEST Positive Normal [facility] Comment on above: Performed By: #### L 9000.0800 ####[facility] [address] [place], [address] Base excess Calc (Bld) [Moles/Vol] 10 mmol/L High -2 to +2 [facility] Comment on above: Performed By: #### L 9000.0800 ####[facility] [address] [place], [address] Blood Gas Type ART Normal [facility] Comment on above: Performed By: #### L 9000.0800 ####[facility] [address] [place], [address] CO2 [Moles/Vol] 34 mmol/L Normal [facility] Comment on above: Performed By: #### L 9000.0800 ####[facility] [address] [place], [address] FI02 30.0 [facility] Comment on above: Performed By: #### L 9000.0800 ####[facility] [address] [place], [address] HCO3 (Bld) [Moles/Vol] 32.7 mmol/L High 22-26 [facility] Comment on above: Performed By: #### L 9000.0800 ####[facility] [address] [place], [address] Mode AC Normal [facility] Comment on above: Performed By: #### L 9000.0800 ####[facility] [address] [place], [address] O2 Delivery Dev Adult Vent Normal [facility] Comment on above: Performed By: #### L 9000.0800 ####[facility] [address] [place], [address] pCO2 40.4 mmHg Normal 35-45 [facility] Comment on above: Performed By: #### L 0.0800 ####[facility] [address] [place], [address] PEEP 5 Normal [facility] Comment on above: Performed By: #### L 0.0800 ####[facility] [address] [place], [address] pH (Bld) 7.52 [pH] High 7.35-7.45 [facility] Comment on above: Performed By: #### L 0.0800 ####[facility] [address] [place], [address] PO2 72 mmHG Low 75-100 [facility] Comment on above: Performed By: #### L 9000.0800 ####[facility] [address] [place], [address] RR 14 Normal [facility] Comment on above: Performed By: #### L 0.0800 ####[facility] [address] [place], [address] SITE R Radial Normal [facility] Comment on above: Performed By: #### L 0.0800 ####[facility] [address] [place], [address] SO2 96 Normal 95-99 [facility] Comment on above: Performed By: #### L 8999.0800 ####[facility] [address] [place], [address] Vt 450.0 mL Normal [facility] Comment on above: Performed By: #### L 0.0800 ####[facility] [address] [place], [address] CBC W/Diff, Automatedon 05-2 -2024 Absolute Lymph 0.92 X10 3/uL Normal 0.83-4.51 [facility] Comment on above: Performed By: #### L 100.0100, L501.5200, L500.2500 ####[facility] [address] [place], [address] Absolute Neut 9.8 X10 3/uL High 2.0-7.7 [facility] Comment on above: Performed By: #### L 100.0100, L501.5200, L500.2500 ####[facility] [address] [place], [address] Basophils/100 WBC (Bld) 0.7 % Normal 0-1 [facility] Comment on above: Performed By: #### L 100.0100, L501.5200, L500.2500 ####[facility] [address] [place], [address] Eosinophils/100 WBC (Bld) 1.9 % Normal 0-5 [facility] Comment on above: Performed By: #### L 100.0100, L501.5200, L500.2500 ####[facility] [address] [place], [address] Erythrocyte distribution width (RBC) [Ratio] 19.1 % High 11.6-14.6 [facility] Comment on above: Performed By: #### L 100.0100, L501.5200, L500.2500 ####[facility] [address] [place], [address] Hematocrit (Bld) [Volume fraction] 28.9 % Low 37-47 [facility] Comment on above: Performed By: #### L 100.0100, L501.5200, L500.2500 ####[facility] [address] [place], [address] Hemoglobin (Bld) [Mass/Vol] 8.5 g/dL Low 12.0-15.0 [facility] Comment on above: Performed By: #### L 100.0100, L501.5200, L500.2500 ####[facility] [address] [place], [address] IG% 0.600 Normal 0.0-0.9 [facility] Comment on above: Result Comment: IG% - Immature Granulocytes (promyelocytes, myelocytes andmetamyelocytes) > 1% indicates that a LEFT SHIFT is Present. Performed By: #### L 100.0100, L501.5200, L500.2500 ####[facility] [address] [place], [address] Lymphocytes/100 WBC (Bld) 7.6 % Low 19-41 [facility] Comment on above: Performed By: #### L 100.0100, L501.5200, L500.2500 ####[facility] [address] [place], [address] MCH (RBC) [Entitic mass] 21.7 pg Low 27.0-32.0 [facility] Comment on above: Performed By: #### L 100.0100, L501.5200, L500.2500 ####[facility] [address] [place], [address] MCHC (RBC) [Mass/Vol] 29.4 g/dL Low 32-36 [facility] Comment on above: Performed By: #### L 100.0100, L501.5200, L500.2500 ####[facility] [address] [place], [address] MCV (RBC) [Entitic vol] 73.9 fL Low 81-99 [facility] Comment on above: Performed By: #### L 100.0100, L501.5200, L500.2500 ####[facility] [address] [place], [address] Monocytes/100 WBC (Bld) 8.4 % Normal 0-10 [facility] Comment on above: Performed By: #### L 100.0100, L501.5200, L500.2500 ####[facility] [address] [place], [address] Neutrophils/100 WBC (Bld) 80.8 % High 47-70 [facility] Comment on above: Performed By: #### L 100.0100, L501.5200, L500.2500 ####[facility] [address] [place], [address] Nucleated RBC (Bld) [#/Vol] 0 10*3/uL Normal 0-5 [facility] Comment on above: Performed By: #### L 100.0100, L501.5200, L500.2500 ####[facility] [address] [place], [address] Platelet mean volume (Bld) [Entitic vol] 10.9 fL Normal 6.2-12.0 [facility] Comment on above: Performed By: #### L 100.0100, L501.5200, L500.2500 ####[facility] [address] [place], [address] Platelets (Bld) [#/Vol] 282 10*3/uL Normal 150-450 [facility] Comment on above: Performed By: #### L 100.0100, L501.5200, L500.2500 ####[facility] [address] [place], [address] RBC (Bld) [#/Vol] 3.91 10*6/uL Low 4.2-5.4 [facility] Comment on above: Performed By: #### L 100.0100, L501.5200, L500.2500 ####[facility] [address] [place], [address] RDW SD 47.8 fl High 35.1-43.9 [facility] Comment on above: Performed By: #### L 100.0100, L501.5200, L500.2500 ####[facility] [address] [place], [address] WBC (Bld) [#/Vol] 12.1 10*3/uL High 4.4-11.0 [facility] Comment on above: Performed By: #### L 100.0100, L501.5200, L500.2500 ####[facility] [address] [place], [address] Chest 1 View (Portable)on Chest 1 View (Portable) Normal [facility] Magnesiumon 02-15-2025 Magnesium [Mass/Vol] 2.1 mg/dL Normal 1.5-2.2 [facility] Comment on above: Performed By: #### L 100.0100, L501.5200, L500.2500 ####[facility] [address] [place], [address] Phosphoruson 02-15-2025 Phosphate [Mass/Vol] 4.0 mg/dL Normal 2.7-4.5 [facility] Comment on above: Performed By: #### L 501.2300 ####[facility] [address] [place], [address] Basic Metabolic Profile (BMP )on 02-14-2025 BUN/CRE 52.2 RATIO High 10-20 [facility] Comment on above: Performed By: #### L 500.2500 ####[facility] [address] [place], [address] Calcium [Mass/Vol] 8.5 mg/dL Normal 7.6-11.0 [facility] Comment on above: Performed By: #### L 500.2500 ####[facility] [address] [place], [address] Chloride [Moles/Vol] 93 mmol/L Low 98-108 [facility] Comment on above: Performed By: #### L 500.2500 ####[facility] [address] [place], [address] CO2 [Moles/Vol] 28.9 mmol/L Normal 21.0-32.0 [facility] Comment on above: Performed By: #### L 500.2500 ####[facility] [address] [place], [address] Creatinine [Mass/Vol] 2.49 mg/dL High 0.70-1.20 [facility] Comment on above: Performed By: #### L 500.2500 ####[facility] [address] [place], [address] ECRCL 23.53 ml/min Low 50-250 [facility] Comment on above: Performed By: #### L 500.2500 ####[facility] [address] [place], [address] GAP 17 High 5-15 [facility] Comment on above: Performed By: #### L 500.2500 ####[facility] [address] [place], [address] GFR/1.73 sq M.predicted among non-blacks MDRD (S/P/Bld) [Vol rate/Area] 20 mL/min/{1.73_m2} Low >60 [facility] Comment on above: Result Comment: mL/m in/1.73m2 CKD-EPI Creatinine Equation (2020) Performed By: #### L 500.2500 ####[facility] [address] [place], [address] Glucose [Mass/Vol] 255 mg/dL High 70-99 [facility] Comment on above: Performed By: #### L 500.2500 ####[facility] [address] [place], [address] Potassium [Moles/Vol] 3.3 mmol/L Normal 3.3-5.1 [facility] Comment on above: Result Comment: Hemo lysis present, Results??could be affected.?? Performed By: #### L 500.2500 ####[facility] [address] [place], [address] Sodium [Moles/Vol] 140 mmol/L Normal 133-145 [facility] Comment on above: Performed By: #### L 500.2500 ####[facility] [address] [place], [address] Urea nitrogen [Mass/Vol] 130 mg/dL Invalid Interpretation Code 19 [facility] Comment on above: Result Comment: Crit ical Result(s) Called at: 0646 by: HERMELINDO BURNETT??Results read back by same. Performed By: #### L 500.2500 ####[facility] [address] [place], [address] Bedside Glucoseon 02-14-2025 FINGERSTICK GLU 207 mg/dL High 74-106 [facility] Comment on above: Result Comment: VI GEMENT OF PATIENT CARE PER NURSING PROTOCOL Performed By: #### L 501.080 ####[facility] [address] [place], [address] FINGERSTICK GLU 169 mg/dL High 74-106 [facility] Comment on above: Result Comment: VI GEMENT OF PATIENT CARE PER NURSING PROTOCOL Performed By: #### L 501.080 ####[facility] [address] [place], [address] FINGERSTICK GLU 175 mg/dL High 74-106 [facility] Comment on above: Result Comment: VI GEMENT OF PATIENT CARE PER NURSING PROTOCOL Performed By: #### L 501.080 ####[facility] [address] [place], [address] FINGERSTICK GLU 166 mg/dL High 74-106 [facility] Comment on above: Result Comment: VI GEMENT OF PATIENT CARE PER NURSING PROTOCOL Performed By: #### L 501.080 ####[facility] [address] [place], [address] FINGERSTICK GLU 219 mg/dL High 74-106 [facility] Comment on above: Result Comment: VI GEMENT OF PATIENT CARE PER NURSING PROTOCOL Performed By: #### L 501.080 ####[facility] [address] [place], [address] FINGERSTICK GLU 289 mg/dL High 74-106 [facility] Comment on above: Result Comment: VI GEMENT OF PATIENT CARE PER NURSING PROTOCOL Performed By: #### L 501.080 ####[facility] [address] [place], [address] Blood Gases by [facility] 025 DANIEL TEST Positive Normal [facility] Comment on above: Performed By: #### L 9000.0800 ####[facility] [address] [place], [address] Base excess Calc (Bld) [Moles/Vol] 12 mmol/L High -2 to +2 [facility] Comment on above: Performed By: #### L 9000.0800 ####[facility] [address] [place], [address] Blood Gas Type ART Normal [facility] Comment on above: Performed By: #### L 9000.0800 ####[facility] [address] [place], [address] CO2 [Moles/Vol] 37 mmol/L Normal [facility] Comment on above: Performed By: #### L 9000.0800 ####[facility] [address] [place], [address] FI02 30.0 Normal [facility] Comment on above: Performed By: #### L 8999.0800 ####[facility] [address] [place], [address] HCO3 (Bld) [Moles/Vol] 35.2 mmol/L High 22-26 [facility] Comment on above: Performed By: #### L 0.0800 ####[facility] [address] [place], [address] Mode AC Normal [facility] Comment on above: Performed By: #### L 0.0800 ####[facility] [address] [place], [address] O2 Delivery Dev Adult Vent Normal [facility] Comment on above: Performed By: #### L 0.0800 ####[facility] [address] [place], [address] pCO2 44.3 mmHg Normal 35-45 [facility] Comment on above: Performed By: #### L 9000.0800 ####[facility] [address] [place], [address] PEEP 5 Normal [facility] Comment on above: Performed By: #### L 0.0800 ####[facility] [address] [place], [address] pH (Bld) 7.51 [pH] High 7.35-7.45 [facility] Comment on above: Performed By: #### L 0.0800 ####[facility] [address] [place], [address] PO2 66 mmHG Low 75-100 [facility] Comment on above: Performed By: #### L 0.0800 ####[facility] [address] [place], [address] RR 14 Normal [facility] Comment on above: Performed By: #### L 9000.0800 ####[facility] [address] [place], [address] SITE L Radial Normal [facility] Comment on above: Performed By: #### L 9000.0800 ####[facility] [address] [place], [address] SO2 94 Low 95-99 [facility] Comment on above: Performed By: #### L 9000.0800 ####[facility] [address] [place], [address] Vt 450.0 mL Normal [facility] Comment on above: Performed By: #### L 9000.0800 ####[facility] [address] [place], [address] CBC W/Diff, Automatedon 05-2 Absolute Lymph 1.00 X10 3/uL Normal 0.83-4.51 [facility] Comment on above: Performed By: #### L 100.0100 ####[facility] [address] [place], [address] Absolute Neut 8.8 X10 3/uL High 2.0-7.7 [facility] Comment on above: Performed By: #### L 100.0100 ####[facility] [address] [place], [address] Basophils/100 WBC (Bld) 0.5 % Normal 0-1 [facility] Comment on above: Performed By: #### L 100.0100 ####[facility] [address] [place], [address] Eosinophils/100 WBC (Bld) 1.9 % Normal 0-5 [facility] Comment on above: Performed By: #### L 100.0100 ####[facility] [address] [place], [address] Erythrocyte distribution width (RBC) [Ratio] 18.5 % High 11.6-14.6 [facility] Comment on above: Performed By: #### L 100.0100 ####[facility] [address] [place], [address] Hematocrit (Bld) [Volume fraction] 27.7 % Low 37-47 [facility] Comment on above: Performed By: #### L 100.0100 ####[facility] [address] [place], [address] Hemoglobin (Bld) [Mass/Vol] 8.1 g/dL Low 12.0-15.0 [facility] Comment on above: Performed By: #### L 100.0100 ####[facility] [address] [place], [address] IG% 0.500 Normal 0.0-0.9 [facility] Comment on above: Result Comment: IG% - Immature Granulocytes (promyelocytes, myelocytes andmetamyelocytes) > 1% indicates that a LEFT SHIFT is Present. Performed By: #### L 100.0100 ####[facility] [address] [place], [address] Lymphocytes/100 WBC (Bld) 8.8 % Low 19-41 [facility] Comment on above: Performed By: #### L 100.0100 ####[facility] [address] [place], [address] MCH (RBC) [Entitic mass] 21.3 pg Low 27.0-32.0 [facility] Comment on above: Performed By: #### L 100.0100 ####[facility] [address] [place], [address] MCHC (RBC) [Mass/Vol] 29.2 g/dL Low 32-36 [facility] Comment on above: Performed By: #### L 100.0100 ####[facility] [address] [place], [address] MCV (RBC) [Entitic vol] 72.9 fL Low 81-99 [facility] [place] Comment on above: Performed By: #### L 100.0100 ####[facility] [address] [place], [address] Monocytes/100 WBC (Bld) 10.4 % High 0-10 [facility] Comment on above: Performed By: #### L 100.0100 ####[facility] [address] [place], [address] Neutrophils/100 WBC (Bld) 77.9 % High 47-70 [facility] Comment on above: Performed By: #### L 100.0100 ####[facility] [address] [place], [address] Nucleated RBC (Bld) [#/Vol] 0 10*3/uL Normal 0-5 [facility] Comment on above: Performed By: #### L 100.0100 ####[facility] [address] [place], [address] Platelet mean volume (Bld) [Entitic vol] 10.4 fL Normal 6.2-12.0 [facility] Comment on above: Performed By: #### L 100.0100 ####[facility] [address] [place], [address] Platelets (Bld) [#/Vol] 249 10*3/uL Normal 150-450 [facility] Comment on above: Performed By: #### L 100.0100 ####[facility] [address] [place], [address] RBC (Bld) [#/Vol] 3.80 10*6/uL Low 4.2-5.4 [facility] Comment on above: Performed By: #### L 100.0100 ####[facility] [address] [place], [address] RDW SD 46.8 fl High 35.1-43.9 [facility] Comment on above: Performed By: #### L 100.0100 ####[facility] [address] [place], [address] WBC (Bld) [#/Vol] 11.3 10*3/uL High 4.4-11.0 [facility] Comment on above: Performed By: #### L 100.0100 ####[facility] [address] [place], [address] Chest 1 View (Portable)on Chest 1 View (Portable) Normal [facility] Chest 1 View (Portable) Normal [facility] L3890.6102on 02-14-2025 HEP B Surf Ag Non-Reactive Normal Nonreactive [facility] Comment on above: Order Comment: Reaso n for Exam: may need outpatient dialysis Result Comment: Reac tive: Presumptive evidence of HBV. Repeatedly reactivesamples must be confirmed using a neutralization test([employer] HBsAg Confirmatory Test)Non-Reactive: HBsAg not detected; does not exclude thepossibility of exposure to HBV Performed By: #### L 3890.6102 ####[facility] [address] [place], [address] MR/POSTOP.ANEon 02-14-2025 MR/POSTOP.ANE Normal [facility] Operative Reporton Operative Report Normal [facility] Basic Metabolic Profile (BMP )on 02-13-2025 BUN/CRE 48.4 RATIO High 10-20 [facility] Comment on above: Performed By: #### L 500.2500 ####[facility] [address] [place], [address] Calcium [Mass/Vol] 8.1 mg/dL Normal 7.6-11.0 [facility] Comment on above: Performed By: #### L 500.2500 ####[facility] [address] [place], [address] Chloride [Moles/Vol] 93 mmol/L Low 98-108 [facility] Comment on above: Performed By: #### L 500.2500 ####[facility] [address] [place], [address] CO2 [Moles/Vol] 28.2 mmol/L Normal 21.0-32.0 [facility] Comment on above: Performed By: #### L 500.2500 ####[facility] [address] [place], [address] Creatinine [Mass/Vol] 2.50 mg/dL High 0.70-1.20 [facility] Comment on above: Performed By: #### L 500.2500 ####[facility] [address] [place], [address] ECRCL 23.34 ml/min Low 50-250 [facility] Comment on above: Performed By: #### L 500.2500 ####[facility] [address] [place], [address] GAP 17 High 5-15 [facility] Comment on above: Performed By: #### L 500.2500 ####[facility] [address] [place], [address] GFR/1.73 sq M.predicted among non-blacks MDRD (S/P/Bld) [Vol rate/Area] 19 mL/min/{1.73_m2} Low >60 [facility] Comment on above: Result Comment: mL/m in/1.73m2 CKD-EPI Creatinine Equation (2020) Performed By: #### L 500.2500 ####[facility] [address] [place], [address] Glucose [Mass/Vol] 450 mg/dL High 70-99 [facility] Comment on above: Performed By: #### L 500.2500 ####[facility] [address] [place], [address] Potassium [Moles/Vol] 3.1 mmol/L Low 3.3-5.1 [facility] Comment on above: Performed By: #### L 500.2500 ####[facility] [address] [place], [address] Sodium [Moles/Vol] 138 mmol/L Normal 133-145 [facility] Comment on above: Performed By: #### L 500.2500 ####[facility] [address] [place], [address] Urea nitrogen [Mass/Vol] 121 mg/dL Invalid Interpretation Code 01-13 [facility] Comment on above: Result Comment: Crit ical Result(s) Called at: 0426 by: MINERVA MANTILLA??Results read back by same. Performed By: #### L 500.2500 ####[facility] [address] [place], [address] Bedside Glucoseon 02-13-2025 FINGERSTICK GLU 341 mg/dL High 74-106 [facility] Comment on above: Result Comment: VI GEMENT OF PATIENT CARE PER NURSING PROTOCOL Performed By: #### L 501.080 ####[facility] [address] [place], [address] FINGERSTICK GLU 313 mg/dL High 74-106 [facility] Comment on above: Result Comment: VI GEMENT OF PATIENT CARE PER NURSING PROTOCOL Performed By: #### L 501.080 ####[facility] [address] [place], [address] FINGERSTICK GLU 355 mg/dL High 74-106 [facility] Comment on above: Result Comment: VI GEMENT OF PATIENT CARE PER NURSING PROTOCOL Performed By: #### L 501.080 ####[facility] [address] [place], [address] FINGERSTICK GLU 410 mg/dL High [address] [place] [address] Comment on above: Result Comment: VI GEMENT OF PATIENT CARE PER NURSING PROTOCOL Performed By: #### L 501.080 ####[facility] [address] [place], [address] FINGERSTICK GLU 413 mg/dL High [address] [place] [address] Comment on above: Result Comment: VI GEMENT OF PATIENT CARE PER NURSING PROTOCOL Performed By: #### L 501.080 ####[facility] [address] [place], [address] FINGERSTICK GLU 389 mg/dL High [address] [place] [address] Comment on above: Result Comment: VI GEMENT OF PATIENT CARE PER NURSING PROTOCOL Performed By: #### L 501.080 ####[facility] [address] [place], [address] Blood Gases by [facility] 025 Base excess Calc (Bld) [Moles/Vol] 12 mmol/L [facility] -2 to +2 [facility] Comment on above: Performed By: #### L 9000.0800 ####[facility] [address] [place], [address] Blood Gas Type ART Normal [facility] Comment on above: Performed By: #### L 9000.0800 ####[facility] [address] [place], [address] CO2 [Moles/Vol] 38 mmol/L Normal [facility] Comment on above: Performed By: #### L 9000.0800 ####[facility] [address] [place], [address] FI02 30.0 [facility] Comment on above: Performed By: #### L 9000.0800 ####[facility] [address] [place], [address] HCO3 (Bld) [Moles/Vol] 36.0 mmol/L High 22-26 [facility] Comment on above: Performed By: #### L 8999.08 ####[facility] [address] [place], [address] Mode AC Normal [facility] Comment on above: Performed By: #### L 8999.08 ####[facility] [address] [place], [address] O2 Delivery Dev Adult Vent Normal [facility] Comment on above: Performed By: #### L 8999.08 ####[facility] [address] [place], [address] pCO2 49.2 mmHg High 35-45 [facility] Comment on above: Performed By: #### L 8999.08 ####[facility] [address] [place], [address] PEEP 5 Normal [facility] Comment on above: Performed By: #### L 8999.0800 ####[facility] [address] [place], [address] pH (Bld) 7.47 [pH] High 7.35-7.45 [facility] Comment on above: Performed By: #### L 8999.08 ####[facility] [address] [place], [address] PO2 52 mmHG Low 75-100 [facility] Comment on above: Performed By: #### L 8999.0800 ####[facility] [address] [place], [address] SITE R Radial Normal [facility] Comment on above: Performed By: #### L 8999.0800 ####[facility] [address] [place], [address] SO2 88 Low 95-99 [facility] Comment on above: Performed By: #### L 8999.0800 ####[facility] [address] [place], [address] DANIEL TEST Positive Normal [facility] Comment on above: Performed By: #### L 8999.0800 ####[facility] [address] [place], [address] Base excess Calc (Bld) [Moles/Vol] 11 mmol/L High -2 to +2 [facility] Comment on above: Performed By: #### L 8999.0800 ####[facility] [address] [place], [address] Blood Gas Type ART Normal [facility] Comment on above: Performed By: #### L 8999.0800 ####[facility] [address] [place], [address] CO2 [Moles/Vol] 36 mmol/L Normal [facility] Comment on above: Performed By: #### L 8999.0800 ####[facility] [address] [place], [address] FI02 30.0 Normal [facility] Comment on above: Performed By: #### L 8999.0800 ####[facility] [address] [place], [address] HCO3 (Bld) [Moles/Vol] 34.6 mmol/L High 22-26 [facility] [place] Comment on above: Performed By: #### L 8999.0800 ####[facility] [address] [place], [address] Mode AC Normal [facility] Comment on above: Performed By: #### L 0.0800 ####[facility] [address] [place], [address] O2 Delivery Dev Adult Vent Normal [facility] Comment on above: Performed By: #### L 9000.0800 ####[facility] [address] [place], [address] pCO2 44.5 mmHg Normal 35-45 [facility] Comment on above: Performed By: #### L 9000.0800 ####[facility] [address] [place], [address] PEEP 5 Normal [facility] Comment on above: Performed By: #### L 9000.0800 ####[facility] [address] [place], [address] pH (Bld) 7.50 [pH] High 7.35-7.45 [facility] Comment on above: Performed By: #### L 9000.0800 ####[facility] [address] [place], [address] PO2 60 mmHG Low 75-100 [facility] Comment on above: Performed By: #### L 9000.0800 ####[facility] [address] [place], [address] RR 14 Normal [facility] Comment on above: Performed By: #### L 9000.0800 ####[facility] [address] [place], [address] SITE R Radial Normal [facility] Comment on above: Performed By: #### L 9000.0800 ####[facility] [address] [place], [address] SO2 92 Low 95-99 [facility] Comment on above: Performed By: #### L 9000.0800 ####[facility] [address] [place], [address] Vt 450.0 mL Normal [facility] Comment on above: Performed By: #### L 9000.0800 ####[facility] [address] [place], [place], [address] Chest 1 View (Portable)on Chest 1 View (Portable) Normal [facility] Consultation - Surgicalon Consultation - Surgical Normal [facility] Hemoglobin A1con 02-13-2025 HbA1c (Bld) [Mass fraction] 7.1 % High <=5.6 [facility] Comment on above: Result Comment: Norm al < 5.7 % Prediabetic 5.7 - 6.4 % Diabetic >or= 6.5 % Please note range changes. Performed By: #### L 501.9949 ####[facility] [address] [place], [place], [address] Absolute lymphocyte countOrd ered By: Herbert Cardona on 02-12-2025 Lymphocytes Auto (Unsp spec) [#/Vol] 0.88 10*3/uL 0.83-4.51 [facility] Absolute neutrophil countOrd ered By: Herbert Cardona on 02-12-2025 Neutrophils (Bld) [#/Vol] 8.5 10*3/uL High 2.0-7.7 [facility] Anion gap in Serum or Plasma Ordered By: Zachery Gomez on 02-12-2025 Anion gap [Moles/Vol] 13 mmol/L 5-15 [facility] Assessment of wrist artery p atency prior to arterial punctureOrdered By: Herbert Cardona on 02-12-2025 Arterial patency Wrist artery --pre arterial puncture Positive [facility] Automated lymphocyte count a s percentage of total leukocytesOrdered By: Herbert Cardona on 02-12-2025 Lymphocytes/100 WBC Auto (Unsp spec) 8.1 % Low [facility] BUN/creatinine ratioOrdered By: Zachery Gomez on 02-12-2025 Urea nitrogen/Creatinine [Mass ratio] 46.6 mg/mg High 10- [facility] Basophil percentageOrdered B y: Herbert Cardona on 02-12-2025 Basophils/100 WBC (Bld) 0.6 % 0-1 [facility] [place] Blood base excess determinat ionOrdered By: Herbert Cardona on 02-12-2025 Base excess Calc (BldV) [Moles/Vol] 10 mmol/L High -2-2 [facility] Blood bicarbonate measuremen tOrdered By: Herbert Cardona on 02-12-2025 HCO3 (Bld) [Moles/Vol] 32.3 mmol/L High 22-26 [facility] [place] Carbon dioxide, total [Moles /volume] in Central venous bloodOrdered By: Zachery Gomez on 02-12-2025 CO2 [Moles/Vol] 30.1 mmol/L 21.0-32.0 [facility] Chloride assayOrdered By: Mack Gomez on 02-12-2025 Chloride [Moles/Vol] 94 mmol/L Low 98-108 [facility] Eosinophil percentageOrdered By: Herbert Cardona on 02-12-2025 Eosinophils/100 WBC (Bld) 1.7 % 0-5 [facility] Erythrocyte distribution wid th ratioOrdered By: Herbert Cardona on 02-12-2025 Erythrocyte distribution width (RBC) [Ratio] 17.4 % High 11.6-14.6 [facility] Erythrocyte distribution wid th standard deviationOrdered By: Herbert Cardona on 02-12-2025 Erythrocyte distribution width (RBC) [Ratio] 45.2 fl High 35.1-43.9 [facility] Glomerular filtration rate ( GFR) estimation/1.73 sq m using serum, plasma, or whole bOrdered By: Zachery Gomez on 02-12-2025 GFR/1.73 sq M.predicted among non-blacks MDRD (S/P/Bld) [Vol rate/Area] 21 mL/min/{1.73_m2} Low >60 [facility] Comment on above: mL/min/1.73m2 CKD-EP I Creatinine Equation (2020) [facility] de[facility]dered By: Herbert Cardona on 02-12-2025 Glucose [Mass/Vol] 386 mg/dL High 74-106 [facility] Comment on above: MANAGEMENT OF PATIEN T CARE PER NURSING PROTOCOL Hematocrit Auto (Bld) [Volum e fraction]Ordered By: Herbert Cardona on 02-12-2025 Hematocrit (Bld) [Volume fraction] 27.3 % Low 37-47 [facility] Hemoglobin measurementOrdere d By: Herbert Cardona on 02-12-2025 Hemoglobin (Bld) [Mass/Vol] 8.1 g/dL Low 12.0-15.0 [facility] Immature granulocytes/100 WB C Auto (Bld)Ordered By: Herbert Cardona on 02-12-2025 Immature granulocytes/100 WBC (Bld) 1.200 % High 0.0-0.9 [facility] Comment on above: IG% - Immature Granu locytes (promyelocytes, myelocytes and metamyelocytes) > 1% indicates that a LEFT SHIFT is Present. MCV (mean corpuscular volume ) determinationOrdered By: Herbert Cardona on 02-12-2025 MCV (RBC) [Entitic vol] 72.6 fL Low 81-99 [facility] [place] Mean corpuscular hemoglobin (MCH) determinationOrdered By: Herbert Cardona on 02-12-2025 MCH (RBC) [Entitic mass] 21.5 pg Low 27.0-32.0 [facility] Mean corpuscular hemoglobin concentration (MCHC) determinationOrdered By: Herbert Cardona on 02-12-2025 MCHC (RBC) [Mass/Vol] 29.7 g/dL Low 32-36 [facility] Mean platelet volume determi nationOrdered By: Herbert Cardona on 02-12-2025 Platelet mean volume (Bld) [Entitic vol] 9.8 fL 6.2-12.0 [facility] Measurement, pHOrdered By: Laurel Cardona on 02-12-2025 pH (Unsp spec) 7.56 [pH] High 7.35-7.45 [facility] Monocyte percentageOrdered B y: Herbert Cardona on 02-12-2025 Monocytes/100 WBC (Bld) 10.5 % High 0-10 [facility] Neutrophil percentageOrdered By: Herbert Cardona on 02-12-2025 Neutrophils/100 WBC (Bld) 77.9 % High 47-70 [facility] No Panel InformationOrdered By: Herbert Cardona on 02-12-2025 Bedside Blood Gas PEEP 5 [facility] Blood Gas Respiration Rate 14 [facility] Blood Gas Sample Site R Radial [facility] Blood Gas Specimen Type ART [facility] [place] Blood Gas Tidal Volume 450.0 mL [facility] Blood Gas Vent Mode AC [facility] Oxygen Delivery Device Adult Vent [facility] Nucleated red blood cell per centageOrdered By: Herbert Cardona on 02-12-2025 Nucleated RBC/100 WBC (Bld) [Ratio] 0 % 0-5 [facility] Platelet countOrdered By: Paris Cardona on 02-12-2025 Platelets (Bld) [#/Vol] 246 10*3/uL 150-450 [facility] Potassium measurement (mass/ volume)Ordered By: Zachery Gomez on 02-12-2025 Potassium (Unsp spec) [Mass/Vol] 3.4 mmol/L 3.3-5.1 [facility] RBC Auto (Bld) [#/Vol]Ordere d By: Herbert Cardona on 02-12-2025 RBC (Bld) [#/Vol] 3.76 10*6/uL Low 4.2-5.4 [facility] Serum creatinine measurement (mass/volume)Ordered By: Zachery Gomez on 02-12-2025 Creatinine [Mass/Vol] 2.36 mg/dL High 0.70-1.20 [facility] Serum glucose measurement (m ass/volume)Ordered By: Zachery Gomez on 02-12-2025 Glucose [Mass/Vol] 457 mg/dL High 70-99 [facility] Comment on above: Critical Result(s) C alled at 0610: by: KD COLE. Results read back by same. Serum or plasma calcium kayleigh urement (mass/volume)Ordered By: Zachery Gomez on 02-12-2025 Calcium [Mass/Vol] 8.3 mg/dL 7.6-11.0 [facility] Serum or plasma urea nitroge n measurement (mass/volume)Ordered By: Zachery Gomez on 02-12-2025 Urea nitrogen [Mass/Vol] 110 mg/dL High 4-19 [facility] Comment on above: Critical Result(s) C alled at 0610: by: KD KHAN TO DOUGLAS. Results read back by same. Sodium levelOrdered By: Angelita Gomez on 02-12-2025 Sodium [Moles/Vol] 137 mmol/L 133-145 [facility] Total carbon dioxide measure mentOrdered By: Herbert Cardona on 02-12-2025 CO2 [Moles/Vol] 33 mmol/L [facility] White blood cell (WBC) count Ordered By: Herbert Cardona on 02-12-2025 WBC (Bld) [#/Vol] 10.9 10*3/uL 4.4-11.0 [facility] Gram stainOrdered By: Jose Pool on 02-08-2025 Microscopic observation Gram stain Nom (Unsp spec) [facility] Immature platelet percentage Ordered By: Zachery Gomez on 02-08-2025 Platelets reticulated/100 platelets Auto (Bld) 1.2 % 1.0-7.9 [facility] Comment on above: Low PLT + [...] (Unsp spec) [Mass/Mass] 16 ug/dL Low 50-170 [facility] Lactate dehydrogenase (LDH) measurementOrdered By: Zachery Gomez on 02-08-2025 LDH [Catalytic activity/Vol] 203 U/L 84-246 [facility] Microbial respiratory cultur eOrdered By: Jose Pool on 02-08-2025 Microorganism identified Cx Nom (Unsp spec) or Staphylococcus aureus isolated. [facility] No Panel InformationOrdered By: Zachery Gomez on 02-08-2025 Bld Gas Crit Called To/Read Back By Yes [facility] Blood Gas Notified Time 10:38:53 [facility] [place] Blood Gas Notified Whom YRN [facility] Unsaturated Iron Binding Capacity 283 ug/dL 228-428 [facility] Reticulocyte hemoglobin equi valent (RET-He) measurementOrdered By: Zachery Gomez on 02-08-2025 Hemoglobin (Reticulocytes) [Entitic mass] 16.0 pg Low 30-35 [facility] Reticulocytes Auto (Bld) [#/ Vol]Ordered By: Zachery Gomez on 02-08-2025 Reticulocytes/100 RBC (Bld) 1.81 % High 0.5-1.5 [facility] Serum or plasma ferritin thomas surement (mass/volume)Ordered By: Zachery Gomez on 02-08-2025 Ferritin [Mass/Vol] 63 ng/mL 22-378 [facility] Serum or plasma iron saturat ion measurement (mass fraction)Ordered By: Zachery Gomez on 02-08-2025 Iron saturation [Mass fraction] 5.0 % Low 13-59 [facility] Stool gastrointestinal hemog lobin detection by immunologic methodOrdered By: Zachery Gomez on 02-08-2025 Lower GI hemoglobin IA Ql (Stl) [facility] Calculated very low density lipoprotein (VLDL) cholesterol measurementOrdered By: Zachery Gomez on 02-06-2025 Calculated very low density lipoprotein (VLDL) cholesterol measurement 13 mg/dL 5-40 [facility] LDL calc ser/plasOrdered By: Zachery Gomez on 02-06-2025 Cholesterol in LDL [Mass/Vol] 69 mg/dL [facility] Comment on above: Sfavuwetcf=639-651 m g/dL & Higher Dwep=361 mg/dL or greater Screening total cholesterol/ high density lipoprotein (HDL) cholesterol ratioOrdered By: Zachery Gomez on 02-06-2025 Cholesterol.total/Antonia sterol in HDL [Mass ratio] 3.20 {ratio} [facility] Serum or plasma cholesterol in HDL measurement (mass/volume)Ordered By: Zachery Gomez on 02-06-2025 Cholesterol in HDL [Mass/Vol] 37 mg/dL Low >40 [facility] Comment on above: National Cholesterol Education Program (NCEP) guidelines:<40 mg/dL: Low HDL-cholesterol (major risk factor for CHD)>= 60 mg/dL: High HDL-cholesterol (negative risk factor for CHD)HDL-cholesterol is affected by a number of factors, e.g. smoking, exercise, hormones, sex and age. Serum or plasma cholesterol measurement (mass/volume)Ordered By: Zachery Gomez on 02-06-2025 Cholesterol [Mass/Vol] 119 mg/dL <201 [facility] Comment on above: Cholesterol level, D esirable <200 mg/dLBorderline high cholesterol 200-239 mg/dLHigh cholesterol >=240 mg/dLRecommendations of the NCEP Adult Treatment Panel for the following risk-cutoff thresholds for the [place] population. TSH DL <= 0.005 mIU/L QnOrde red By: Zachery Gomez on 02-06-2025 TSH Qn 3.320 uIU/mL 0.300-4.200 [facility] Triglycerides measurementOrd ered By: Zachery Gomez on 02-06-2025 Triglyceride [Mass/Vol] 65 mg/dL <199 [facility] [place] Comment on above: The drugs N-Acetylcy steine and Metamizole may falsely depress this assay. Normal range: <150 mg/dLBorderline High: 150-199 mg/dLHigh: 200-499 mg/dLVery High: >500 mg/dL Absolute lymphocyte countOrd ered By: ED PROVIDER on 02-05-2025 Lymphocytes Auto (Unsp spec) [#/Vol] 0.51 10*3/uL Low 0.83-4.51 [facility] Absolute neutrophil countOrd ered By: ED PROVIDER on 02-05-2025 Neutrophils (Bld) [#/Vol] 18.4 10*3/uL High 2.0-7.7 [facility] Activated partial thrombopla stin time (aPTT) in platelet poor plasma by coagulation aOrdered By: Eduardo Corona on 02-05-2025 aPTT Coag (PPP) [Time] 31.7 s 24.1-36.2 [facility] Anion gap in Serum or Plasma Ordered By: Eduardo Corona on 02-05-2025 Anion gap [Moles/Vol] 19 mmol/L High 5-15 [facility] Assessment of wrist artery p atency prior to arterial punctureOrdered By: Zachery Gomez on 02-05-2025 Arterial patency Wrist artery --pre arterial puncture Positive [facility] Automated lymphocyte count a s percentage of total leukocytesOrdered By: ED PROVIDER on 02-05-2025 Lymphocytes/100 WBC Auto (Unsp spec) 2.5 % Low 19-41 [facility] BUN/creatinine ratioOrdered By: Eduardo Corona on 02-05-2025 Urea nitrogen/Creatinine [Mass ratio] 24.9 mg/mg High 10-20 [facility] Basophil percentageOrdered B y: ED PROVIDER on 02-05-2025 Basophils/100 WBC (Bld) 0.3 % 0-1 [facility] Bilirubin Test strip Ql (U)O rdered By: Eduardo Corona on 02-05-2025 Bilirubin Ql (U) Negative Negative [facility] Blood base excess determinat ionOrdered By: Zachery Gomez on 02-05-2025 Base excess Calc (BldV) [Moles/Vol] -8 mmol/L Low -2-2 [facility] Blood bicarbonate measuremen tOrdered By: Zachery Gomez on 02-05-2025 HCO3 (Bld) [Moles/Vol] 20.3 mmol/L Low 22-26 [facility] Blood cultureOrdered By: Isabel Corona on 02-05-2025 Bacteria identified Cx Nom (Bld) No growth in 5 days. [facility] Bacteria identified Cx Nom (Bld) No growth in 5 days. [facility] Carbon dioxide, total [Moles /volume] in Central venous bloodOrdered By: Eduardo Corona on 02-05-2025 CO2 [Moles/Vol] 15.7 mmol/L Low 21.0-32.0 [facility] Chloride assayOrdered By: Josh Cornoa on 02-05-2025 Chloride [Moles/Vol] 100 mmol/L 98-108 [facility] Eosinophil percentageOrdered By: ED PROVIDER on 02-05-2025 Eosinophils/100 WBC (Bld) 0.0 % 0-5 [facility] Erythrocyte distribution wid th ratioOrdered By: ED PROVIDER on 02-05-2025 Erythrocyte distribution width (RBC) [Ratio] 17.0 % High 11.6-14.6 [facility] Erythrocyte distribution wid th standard deviationOrdered By: ED PROVIDER on 02-05-2025 Erythrocyte distribution width (RBC) [Ratio] 45.6 fl High 35.1-43.9 [facility] Glomerular filtration rate ( GFR) estimation/1.73 sq m using serum, plasma, or whole bOrdered By: Eduardo Corona on 02-05-2025 GFR/1.73 sq M.predicted among non-blacks MDRD (S/P/Bld) [Vol rate/Area] 21 mL/min/{1.73_m2} Low >60 [facility] Comment on above: mL/min/1.73m2 CKD-EP I Creatinine Equation (2020) Hematocrit Auto (Bld) [Volum e fraction]Ordered By: ED PROVIDER on 02-05-2025 Hematocrit (Bld) [Volume fraction] 27.9 % Low 37-47 [facility] Hemoglobin measurementOrdere d By: ED PROVIDER on 02-05-2025 Hemoglobin (Bld) [Mass/Vol] 8.0 g/dL Low 12.0-15.0 [facility] Immature granulocytes/100 WB C Auto (Bld)Ordered By: ED PROVIDER on 02-05-2025 Immature granulocytes/100 WBC (Bld) 0.600 % 0.0-0.9 [facility] Comment on above: IG% - Immature Granu locytes (promyelocytes, myelocytes and metamyelocytes) > 1% indicates that a LEFT SHIFT is Present. International normalized rat io (INR) calculationOrdered By: Eduardo Corona on 02-05-2025 INR Coag (Bld) [Relative time] 1.4 {INR} [facility] Ketones Test strip Ql (U)Ord ered By: Eduardo Corona on 02-05-2025 Ketones Ql (U) Negative Negative [facility] Lactic acid measurementOrder ed By: Eduardo Corona on 02-05-2025 Lactate [Moles/Vol] 1.8 mmol/L 0.0-2.0 [facility] Lactate [Moles/Vol] 2.5 mmol/L High 0.0-2.0 [facility] Comment on above: Critical Result(s) C alled at: 02/05/2025-12:10 by: Yamil Lepe to Missy Luna Results read back by same. MCV (mean corpuscular volume ) determinationOrdered By: ED PROVIDER on 02-05-2025 MCV (RBC) [Entitic vol] 75.2 fL Low 81-99 [facility] Magnesium measurement (mass/ volume)Ordered By: Zachery Gomez on 02-05-2025 Magnesium (Unsp spec) [Mass/Vol] 2.6 mg/dL High 1.5-2.2 [facility] Mean corpuscular hemoglobin (MCH) determinationOrdered By: ED PROVIDER on 02-05-2025 MCH (RBC) [Entitic mass] 21.6 pg Low 27.0-32.0 [facility] Mean corpuscular hemoglobin concentration (MCHC) determinationOrdered By: ED PROVIDER on 02-05-2025 MCHC (RBC) [Mass/Vol] 28.7 g/dL Low 32-36 [facility] Mean platelet volume determi nationOrdered By: ED PROVIDER on 02-05-2025 Platelet mean volume (Bld) [Entitic vol] 10.6 fL 6.2-12.0 [facility] Measurement, pHOrdered By: Martínez Gomez on 02-05-2025 pH (Unsp spec) 7.21 [pH] Low 7.35-7.45 [facility] Microscopic analysis of urin e for red blood cells (RBC)Ordered By: Eduardo Corona on 02-05-2025 Microscopic analysis of urine for red blood cells (RBC) 0 SEEN /hpf 0-5 [facility] Monocyte percentageOrdered B y: ED PROVIDER on 02-05-2025 Monocytes/100 WBC (Bld) 6.9 % 0-10 [facility] Mucus LM Ql (Urine sed)Order ed By: Eduardo Corona on 02-05-2025 Mucus Ql (Urine sed) 0 SEEN /hpf [facility] Nasal methicillin resistant Staphylococcus aureus (MRSA) DNA detection by PCROrdered By: Zachery Gomez on 02-05-2025 MRSA DNA PATEL+probe Ql (Nose) [facility] Natriuretic peptide.B prohor luke N-Terminal [Mass/volume] in Serum or PlasmaOrdered By: Eduardo Corona on 02-05-2025 Natriuretic peptide.B prohormone N-Terminal [Mass/Vol] 37419 pg/mL High <1800 [facility] Comment on above: Heart Failure Unlike ly: < 300 pg/mLHeart Failure Likely< 50 Years: > 450 pg/mL50-75 Years: > 900 pg/mL>75 Years: > 1800 pg/mL Neutrophil percentageOrdered By: ED PROVIDER on 02-05-2025 Neutrophils/100 WBC (Bld) 89.7 % High 47-70 [facility] Nitrite Test strip Ql (U)Ord ered By: Eduardo Corona on 02-05-2025 Nitrite Ql (U) Negative Negative [facility] No Panel InformationOrdered By: Zachery Gomez on 02-05-2025 Blood Gas Sample Site R Radial [facility] Blood Gas Specimen Type ART [facility] Blood Gas Vent Mode Not entered [facility] Oxygen Delivery Device BiPAP [facility] Nucleated red blood cell per centageOrdered By: ED PROVIDER on 02-05-2025 Nucleated RBC/100 WBC (Bld) [Ratio] 0 % 0-5 [facility] Platelet countOrdered By: ED PROVIDER on 02-05-2025 Platelets (Bld) [#/Vol] 226 10*3/uL 150-450 [facility] Potassium measurement (mass/ volume)Ordered By: Eduardo Corona on 02-05-2025 Potassium (Unsp spec) [Mass/Vol] 5.5 mmol/L High 3.3-5.1 [facility] Comment on above: Hemolysis present, R esults could be affected. Protein Test strip Ql (U)Ord ered By: Eduardo Cornoa on 02-05-2025 Protein Ql (U) 30 mg/dl High Negative [facility] Prothrombin timeOrdered By: Eduardo Corona on 02-05-2025 PT Coag (PPP) [Time] 17.1 s High 11.7-14.9 [facility] RBC Auto (Bld) [#/Vol]Ordere d By: ED PROVIDER on 02-05-2025 RBC (Bld) [#/Vol] 3.71 10*6/uL Low 4.2-5.4 [facility] Serum creatinine measurement (mass/volume)Ordered By: Eduardo Corona on 02-05-2025 Creatinine [Mass/Vol] 2.32 mg/dL High 0.70-1.20 [facility] Serum glucose measurement (m ass/volume)Ordered By: Eduardo Corona on 02-05-2025 Glucose [Mass/Vol] 259 mg/dL High 70-99 [facility] Serum or plasma calcium kayleigh urement (mass/volume)Ordered By: Eduardo Corona on 02-05-2025 Calcium [Mass/Vol] 9.1 mg/dL 7.6-11.0 [facility] Serum or plasma urea nitroge n measurement (mass/volume)Ordered By: Eduardo Corona on 02-05-2025 Urea nitrogen [Mass/Vol] 58 mg/dL High 4-19 [facility] Sodium levelOrdered By: Eduardo Corona on 02-05-2025 Sodium [Moles/Vol] 135 mmol/L 133-145 [facility] Squamous epithelial cells de tection in urine sediment by light microscopyOrdered By: Eduardo Corona on 02-05-2025 Epithelial cells.squamous LM Ql (Urine sed) 0 SEEN /hpf 5-10 [facility] Total carbon dioxide measure mentOrdered By: Zachery Gomez on 02-05-2025 CO2 [Moles/Vol] 22 mmol/L [facility] Troponin T.cardiac [Mass/vol ume] in Serum or Plasma by High sensitivity methodOrdered By: Zachery Gomez on 02-05-2025 Troponin T.cardiac High sensitivity method [Mass/Vol] 270 ng/L High <14 [facility] Comment on above: Critical Result(s) C alled at: 1749 by: JOSEPH MI Results read back by same. Troponin T.cardiac [Mass/vol ume] in Serum or Plasma by High sensitivity methodOrdered By: Eduardo Corona on 02-05-2025 Troponin T.cardiac High sensitivity method [Mass/Vol] 241 ng/L High <14 [facility] Comment on above: Critical Result(s) C alled at 1358: by: KD TELLEZ. Results read back by same. Troponin T.cardiac High sensitivity method [Mass/Vol] 218 ng/L High <14 [facility] Comment on above: Critical Result(s) C alled at 1154: by: KD WALTERS. Results read back by same. Urine clarityOrdered By: Isabel Corona on 02-05-2025 Clarity (U) Clear Clear [facility] Urine color determinationOrd ered By: Eduardo Corona on 02-05-2025 Color (U) Yellow Yellow [facility] Urine cultureOrdered By: Isabel Corona on 02-05-2025 Bacteria identified Cx Nom (U) Presumptive E. coli Abnormal [facility] Urine glucose detectionOrder ed By: Eduardo Corona on 02-05-2025 Glucose Ql (U) 100 mg/dl High Normal [facility] Urine leukocyte esterase det ection by dipstickOrdered By: Eduardo Corona on 02-05-2025 Leukocyte esterase Test strip Ql (U) 500 /ul High Negative [facility] Urine pHOrdered By: Eduardo galeana on 02-05-2025 pH (U) 5.0 [pH] 5.0 - 8.0 [facility] Urine sediment bacteria coun t by microscopy (number/high power field)Ordered By: Eduardo Corona on 02-05-2025 Bacteria LM.HPF (Urine sed) [#/Area] 0 /[HPF] None Seen [facility] Urine specific gravity measu rementOrdered By: Eduardo Corona on 02-05-2025 Specific gravity (U) [Rel density] 1.025 1.002-1.030 [facility] Urine urobilinogen measureme ntOrdered By: Eduardo Corona on 02-05-2025 Urobilinogen Ql (U) Normal mg/dl Normal [facility] White blood cell (WBC) count Ordered By: ED PROVIDER on 02-05-2025 WBC (Bld) [#/Vol] 20.5 10*3/uL High 4.4-11.0 [facility] White blood cell countOrdere d By: Eduardo Corona on 02-05-2025 White blood cell count 10-25 SEEN /hpf 0-5 [facility] Anion gap in Serum or Plasma Ordered By: Janusz Reaves on 01-29-2025 Anion gap [Moles/Vol] 12 mmol/L 5-15 [facility] BUN/creatinine ratioOrdered By: Janusz Reaves on 01-29-2025 Urea nitrogen/Creatinine [Mass ratio] 26.2 mg/mg High 10-20 [facility] Carbon dioxide, total [Moles /volume] in Central venous bloodOrdered By: Janusz Reaves on 01-29-2025 CO2 [Moles/Vol] 22.0 mmol/L 21.0-32.0 [facility] Chloride assayOrdered By: Eve Reaves on 01-29-2025 Chloride [Moles/Vol] 105 mmol/L 98-108 [facility] Glomerular filtration rate ( GFR) estimation/1.73 sq m using serum, plasma, or whole bOrdered By: Janusz Reaves on 01-29-2025 GFR/1.73 sq M.predicted among non-blacks MDRD (S/P/Bld) [Vol rate/Area] 25 mL/min/{1.73_m2} Low >60 [facility] Comment on above: mL/min/1.73m2 CKD-EP I Creatinine Equation (2020) Natriuretic peptide.B prohor luke N-Terminal [Mass/volume] in Serum or PlasmaOrdered By: Janusz Reaves on 01-29-2025 Natriuretic peptide.B prohormone N-Terminal [Mass/Vol] 3923 pg/mL High <1800 [facility] Comment on above: Heart Failure Unlike ly: < 300 pg/mLHeart Failure Likely< 50 Years: > 450 pg/mL50-75 Years: > 900 pg/mL>75 Years: > 1800 pg/mL Potassium measurement (mass/ volume)Ordered By: Janusz Reaves on 01-29-2025 Potassium (Unsp spec) [Mass/Vol] 4.4 mmol/L 3.3-5.1 [facility] Serum creatinine measurement (mass/volume)Ordered By: Janusz Reaves on 01-29-2025 Creatinine [Mass/Vol] 2.00 mg/dL High 0.70-1.20 [facility] Serum glucose measurement (m ass/volume)Ordered By: Janusz Reaves on 01-29-2025 Glucose [Mass/Vol] 139 mg/dL High 70-99 [facility] Serum or plasma calcium kayleigh urement (mass/volume)Ordered By: Janusz Reaves on 01-29-2025 Calcium [Mass/Vol] 9.3 mg/dL 7.6-11.0 [facility] Serum or plasma urea nitroge n measurement (mass/volume)Ordered By: Janusz Reaves on 01-29-2025 Urea nitrogen [Mass/Vol] 52 mg/dL High 4-19 [facility] Sodium levelOrdered By: Jenelle Reaves on 01-29-2025 Sodium [Moles/Vol] 139 mmol/L 133-145 [facility] CBC W Auto Differential pane l (Bld)on 12-18-2024 Basophils (Bld) [#/Vol] 0.07 10*3/uL Normal <0.11 [facility] Comment on above: Order Comment: Speci men Type: BLOOD SPECIMENOrdering Facility: [facility] Address: [address] [place] [address] Performed By: #### 5 7021-8 ####[facility] LABCLIA [id number] [place] [address] [place] Basophils/100 WBC (Bld) 0.9 % Normal [facility] Comment on above: Order Comment: Speci men Type: BLOOD SPECIMENOrdering Facility: [facility] Address: [address] [place] [address] Performed By: #### 5 7021-8 ####[facility] LABCLIA [id number] [place] [address] [place] Differential cell count method Nom (Bld) Auto Normal [facility] Comment on above: Order Comment: Speci men Type: BLOOD SPECIMENOrdering Facility: [facility] Address: [address] [place] [address] Performed By: #### 5 7021-8 ####[facility] LABCLIA [id number] [place] [address] [place] Eosinophils (Bld) [#/Vol] 0.17 10*3/uL Normal <0.46 [facility] Comment on above: Order Comment: Speci men Type: BLOOD SPECIMENOrdering Facility: [facility] Address: [address] [place] [address] Performed By: #### 5 7021-8 ####[facility] LABIA [id number] [place] [address] [place] Eosinophils/100 WBC (Bld) 2.2 % Normal [facility] Comment on above: Order Comment: Speci men Type: BLOOD SPECIMENOrdering Facility: [facility] Address: [address] [place] [address] Performed By: #### 5 7021-8 ####[facility] LABIA [id number] [place] [address] [place] Erythrocyte distribution width (RBC) [Ratio] 18.2 % High 11.5-15.0 [facility] Comment on above: Order Comment: Speci men Type: BLOOD SPECIMENOrdering Facility: [facility] Address: [address] [place] [address] Performed By: #### 5 7021-8 ####[facility] LABIA [id number] [place] [address] [place] Hematocrit (Bld) [Volume fraction] 27.1 % Low 36.0-46.0 [facility] Comment on above: Order Comment: Speci men Type: BLOOD SPECIMENOrdering Facility: [facility] Address: [address] [place] [address] Performed By: #### 5 7021-8 ####[facility] LABIA [id number] [place] [address] [place] Hemoglobin (Bld) [Mass/Vol] 7.5 g/dL Low 11.5-15.5 [facility] Comment on above: Order Comment: Speci men Type: BLOOD SPECIMENOrdering Facility: [facility] Address: [address] [place] [address] Performed By: #### 5 7021-8 ####[facility] LABCLIA [id number] [place] [address] [place] Immature granulocytes (Bld) [#/Vol] 10*3/uL Normal <0.10 [facility] Comment on above: Order Comment: Speci men Type: BLOOD SPECIMENOrdering Facility: [facility] Address: [address] [place] [address] Performed By: #### 5 7021-8 ####[facility] LABCLIA [id number] [facility] [place] [address] [place] Immature granulocytes/100 WBC (Bld) 0.3 % Normal [facility] Comment on above: Order Comment: Speci men Type: BLOOD SPECIMENOrdering Facility: [facility] Address: [address] [place] [address] Performed By: #### 5 7021-8 ####[facility] LABCLIA [id number] [place] [address] [place] Lymphocytes (Bld) [#/Vol] 1.05 10*3/uL Normal 1.00-4.00 [facility] Comment on above: Order Comment: Speci men Type: BLOOD SPECIMENOrdering Facility: [facility] Address: [address] [place] [address] Performed By: #### 5 7021-8 ####[facility] LABCLIA [id number] [place] [address] [place] Lymphocytes/100 WBC (Bld) 13.6 % Normal [facility] Comment on above: Order Comment: Speci men Type: BLOOD SPECIMENOrdering Facility: [facility] Address: [address] [place] [address] Performed By: #### 5 7021-8 ####[facility] LABCLIA [id number] [place] [id number] [place] MCH (RBC) [Entitic mass] 23.6 pg Low 26.0-34.0 [facility] Comment on above: Order Comment: Speci men Type: BLOOD SPECIMENOrdering Facility: [facility] Address: [address] [place] [address] Performed By: #### 5 7021-8 ####[facility] LABCLIA [id number] [place] [address] [place] MCHC (RBC) [Mass/Vol] 27.7 g/dL Low 30.5-36.[address] [facility] Comment on above: Order Comment: Speci men Type: BLOOD SPECIMENOrdering Facility: [facility] Address: [address] [place] [address] Performed By: #### 5 7021-8 ####[facility] LABCLIA [id number] [place] [address] [place] MCV (RBC) [Entitic vol] 85.2 fL Normal 80.0-100.0 [facility] Comment on above: Order Comment: Speci men Type: BLOOD SPECIMENOrdering Facility: [facility] Address: [address] [place] [address] Performed By: #### 5 7021-8 ####[facility] LABCLIA [id number] [place] [address] [place] Monocytes (Bld) [#/Vol] 0.70 10*3/uL Normal <0.87 [facility] Comment on above: Order Comment: Speci men Type: BLOOD SPECIMENOrdering Facility: [facility] Address: [address] [place] [address] Performed By: #### 5 7021-8 ####[facility] LABCLIA [id number] [place] [address] [place] Monocytes/100 WBC (Bld) 9.1 % Normal [facility] Comment on above: Order Comment: Speci men Type: BLOOD SPECIMENOrdering Facility: [facility] Address: [address] [place] [address] Performed By: #### 5 7021-8 ####[facility] LABCLIA [id number] [address] [address] [place] Neutrophils (Bld) [#/Vol] 5.69 10*3/uL Normal 1.45-7.50 [facility] Comment on above: Order Comment: Speci men Type: BLOOD SPECIMENOrdering Facility: [facility] Address: [address] [place] [address] Performed By: #### 5 7021-8 ####[facility] LABCLIA [id number] [place] [address] [place] Neutrophils/100 WBC (Bld) 73.9 % Normal [facility] Comment on above: Order Comment: Speci men Type: BLOOD SPECIMENOrdering Facility: [facility] Address: [address] [place] [address] Performed By: #### 5 7021-8 ####[facility] LABCLIA [id number] [place] [address] [place] Nucleated RBC (Bld) [#/Vol] 10*3/uL Normal <0.01 [facility] Comment on above: Order Comment: Speci men Type: BLOOD SPECIMENOrdering Facility: [facility] Address: [address] [place] [address] Performed By: #### 5 7021-8 ####[facility] LABCLIA [id number] [place] [address] [place] Nucleated RBC/100 WBC (Bld) [Ratio] 0.0 /100 WBC Normal [facility] Comment on above: Order Comment: Speci men Type: BLOOD SPECIMENOrdering Facility: [facility] Address: [address] [place] [address] Performed By: #### 5 7021-8 ####[facility] LABCLIA [id number] [place] [id number] [place] Platelet mean volume (Bld) [Entitic vol] 10.8 fL Normal 9.0-12.7 [facility] Comment on above: Order Comment: Speci men Type: BLOOD SPECIMENOrdering Facility: [facility] Address: [address] [place] [address] Performed By: #### 5 7021-8 ####[facility] LABCLIA [id number] [place] [address] [place] Platelets (Bld) [#/Vol] 297 10*3/uL Normal 150-400 [facility] Comment on above: Order Comment: Speci men Type: BLOOD SPECIMENOrdering Facility: [facility] Address: [address] [place] [address] Performed By: #### 5 7021-8 ####[facility] LABIA [id number] [place] [address] [place] RBC (Bld) [#/Vol] 3.18 10*6/uL Low 3.90-5.20 [facility] Comment on above: Order Comment: Speci men Type: BLOOD SPECIMENOrdering Facility: [facility] Address: [address] [place] [address] Performed By: #### 5 7021-8 ####[facility] LABIA [id number] [place] [address] [place] WBC (Bld) [#/Vol] 7.70 10*3/uL Normal 3.70-11.00 [facility] Comment on above: Order Comment: Speci men Type: BLOOD SPECIMENOrdering Facility: [facility] Address: [address] [place] [address] Performed By: #### 5 7021-8 ####[facility] LABIA [id number] [place] [address] [place] Comprehensive metabolic 2000 panelon 12-18-2024 Albumin [Mass/Vol] 4.1 g/dL Normal 3.9-4.9 [facility] Comment on above: Order Comment: Speci men Type: BLOOD SPECIMENOrdering Facility: [facility] Address: [address] [place] [address] [place] [address] Performed By: #### 2 4331-1, 05945-5 ####[facility] LABCLIA [id number] [facility] [address] [place] [address] [place] ALP [Catalytic activity/Vol] 90 U/L Normal 34-123 [facility] Comment on above: Order Comment: Speci men Type: BLOOD SPECIMENOrdering Facility: [facility] Address: [address] [place] [address] Performed By: #### 2 433-1, ####[facility] LABCLIA [id number] [facility] [address] [place] [address] [place] ALT [Catalytic activity/Vol] 11 U/L Normal 7-38 [facility] Comment on above: Order Comment: Speci men Type: BLOOD SPECIMENOrdering Facility: [facility] Address: [address] [place] [address] Performed By: #### 2 433-, ####[facility] LABCLIA [id number] [facility] [address] [place] [address] [place] Anion gap [Moles/Vol] 12 mmol/L Normal 8-[address] [facility] Comment on above: Order Comment: Speci men Type: BLOOD SPECIMENOrdering Facility: [facility] Address: [address] [place] [address] Performed By: #### 2 433-, ####[facility] LABCLIA [id number] [facility] [address] [place] [address] [place] AST [Catalytic activity/Vol] 14 U/L Normal 13-35 [facility] Comment on above: Order Comment: Speci men Type: BLOOD SPECIMENOrdering Facility: [facility] Address: [address] [place] [address] Performed By: #### 2 4331-1, 42813-2 ####[facility] LABCLIA [id number] [place] [address] [place] Bilirubin [Mass/Vol] 0.4 mg/dL Normal 0.2-1.3 [facility] Comment on above: Order Comment: Speci men Type: BLOOD SPECIMENOrdering Facility: [facility] Address: [address] [place] [address] Performed By: #### 2 4331-1, 55446-7 ####[facility] LABCLIA [id number] [place] [address] [place] Calcium [Mass/Vol] 9.8 mg/dL Normal 8.5-10.2 [facility] Comment on above: Order Comment: Speci men Type: BLOOD SPECIMENOrdering Facility: [facility] Address: [address] [place] [address] Performed By: #### 2 4331-1, ####[facility] LABCLIA [id number] [place] [address] [place] Chloride [Moles/Vol] 109 mmol/L High 98-107 [facility] Comment on above: Order Comment: Speci men Type: BLOOD SPECIMENOrdering Facility: [facility] Address: [address] [place] [address] Performed By: #### 2 4331-1, ####[facility] LABCLIA [id number] [place] [address] [place] CO2 [Moles/Vol] 21 mmol/L Low 22-30 [facility] Comment on above: Order Comment: Speci men Type: BLOOD SPECIMENOrdering Facility: [facility] Address: [address] [place] [address] Performed By: #### 2 4331-1, 99018-2 ####[facility] LABCLIA [id number] [place] [id number] [place] Creatinine [Mass/Vol] 1.95 mg/dL High 0.58-0.[address] [facility] Comment on above: Order Comment: Maxim davies Type: BLOOD SPECIMENOrdering Facility: [facility] Address: [address] [place] [address] Performed By: #### 2 4331-1, 84355-6 ####[facility] LABCLIA [id number] [place] [address] [place] Creatinine and Glomerular filtration rate.predicted panel (S/P/Bld) 26 mL/min/1.73m??? Low >=60 [facility] Comment on above: Order Comment: Maxim davies Type: BLOOD SPECIMENOrdering Facility: [facility] Address: [address] [place] [address] Result Comment: Kathrine mated Glomerular Filtration Rate [...] actual GFR. Performed By: #### 2 4331-1, 77555-7 ####[facility] LABCLIA [id number] [place] [id number] [place] Glucose [Mass/Vol] 132 mg/dL High 74-99 [facility] Comment on above: Order Comment: Maxim davies Type: BLOOD SPECIMENOrdering Facility: [facility] Address: [address] [place] [address] Result Comment: The [place] Diabetes Association (ADA) provides guidance for cutoff [...] Standards of Medical Care in Diabetes 2016, [place] [employer]. Diabetes Care. 2016.39(Suppl 1). Performed By: #### 2 4331-1, 40615-5 ####[facility] LABIA [id number] [address] [address] [place] Potassium [Moles/Vol] 5.2 mmol/L High 3.7-5.[address] [facility] Comment on above: Order Comment: Speci men Type: BLOOD SPECIMENOrdering Facility: [facility] Address: [address] [place], [place] [address] Performed By: #### 2 4331-1, 78085-9 ####[facility] LABIA [id number] [place] [id number] [place] Protein [Mass/Vol] 7.5 g/dL Normal 6.3-8.0 [facility] Comment on above: Order Comment: Speci men Type: BLOOD SPECIMENOrdering Facility: [facility] Address: [address] [place], [place] [address] Performed By: #### 2 4331-, 27934-5 ####[facility] LABIA [id number] [address] [address] [place] Sodium [Moles/Vol] 142 mmol/L Normal 136-144 [facility] Comment on above: Order Comment: Speci men Type: BLOOD SPECIMENOrdering Facility: [facility] Address: [address] [place] [address] Performed By: #### 2 4331-1, 09977-3 ####[facility] LABIA [id number] [address] [address] [place] Urea nitrogen [Mass/Vol] 47 mg/dL High 7-21 [facility] Comment on above: Order Comment: Speci men Type: BLOOD SPECIMENOrdering Facility: [facility] Address: [address] [place] [address] Performed By: #### 2 4331-1, 12456-5 ####[facility] LABIA [id number] [address] [place] HbA1c (Bld)on 12-18-2024 Average glucose Estimated from glycated hemoglobin (Bld) [Mass/Vol] 140 mg/dL Normal [facility] Comment on above: Order Comment: Maxim davies Type: BLOOD SPECIMENOrdering Facility: [facility] Address: [address] [place] [address] Result Comment: eAG: (Estimated average glucose) is a calculated value from HgbA1c and is field marketing representative of the average blood glucose level in the last 2-3 month period. Performed By: #### 5 5454-3 ####[facility] LABIA [id number] [address] HbA1c (Bld) [Mass fraction] 6.5 % High 4.3-5.6 [facility] Comment on above: Order Comment: Maxim davies Type: BLOOD SPECIMENOrdering Facility: [facility] Address: [address] [place] [address] Result Comment: [place] Diabetes Association guidelines indicate that patients with HgbA1c in the range 5.7-6.4% are at increased risk for development of diabetes, and intervention by lifestyle modification may be beneficial. HgbA1c greater or equal to 6.5% is considered diagnostic of diabetes. Performed By: #### 5 5454-3 ####[facility] LABIA [id number] [address] [place] Lipid 1996 panelon 5 Cholesterol [Mass/Vol] 113 mg/dL Normal <200 [facility] Comment on above: Order Comment: Maxim davies Type: BLOOD SPECIMENOrdering Facility: [facility] Address: [address] [place] [address] Result Comment: <200 mg/dL, Desirable 200-239 mg/dL, Borderline high >239 mg/dL, High Performed By: #### 2 4331-1, 51091-7 ####[facility] LABIA [id number] [address] [place] [address] [facility] Cholesterol in HDL [Mass/Vol] 38 mg/dL Low >39 [facility] Comment on above: Order Comment: Maxim keke Type: BLOOD SPECIMENOrdering Facility: [facility] Address: [address] [place] [address] Result Comment: 40-5 9 mg/dL, Acceptable >59 mg/dL, High: Negative risk factor for coronary heart disease <40 mg/dL, Low: Positive risk factor for coronary heart disease Performed By: #### 2 4331-1, 97250-7 ####[facility] LABCLIA [id number] [address], [facility]95 [facility] Cholesterol in LDL [Mass/Vol] 58 mg/dL Normal <100 [facility] Comment on above: Order Comment: Maxim keke Type: BLOOD SPECIMENOrdering Facility: [facility] Address: [address] [place] [address] Result Comment: <100 mg/dL, Optimal 100-129 mg/dL, Near optimal/above optimal 130-159 mg/dL, Borderline high 160-189 mg/dL, High >189 mg/dL, Very high Secondary prevention optimal LDL Cholesterol levels are recommended to be < 70 mg/dL Performed By: #### 2 4331-1, 82846-9 ####[facility] LABCLIA [id number] [address], [facility]95 [facility] Cholesterol in LDL/Cholesterol in HDL [Mass ratio] 1.53 {ratio} Normal <2.54 [facility] Comment on above: Order Comment: Trevoryoandy davies Type: BLOOD SPECIMENOrdering Facility: [facility] Address: [address] [place] [address] Result Comment: Ermias sheffield: 1. National Cholesterol Education Program ATP III Guideline At-A-Glance Quick Desk Reference: National Heart, Lung, and Blood Xenia. National Institutes of Health. 2001: NIH Publication No. 01-3305. 2. An International Atherosclerosis Society position paper: global recommendations for the management of dyslipidemia: executive summary, Atherosclerosis. 2014: 232(2):410-413. Performed By: #### 2 4331-1, ####[facility] LABCLIA [id number] [facility] [address] [place] [address] [place] Cholesterol in VLDL [Mass/Vol] 17 mg/dL Normal <30 [facility] Comment on above: Order Comment: Speci men Type: BLOOD SPECIMENOrdering Facility: [facility] Address: [address] [place] [address] Performed By: #### 2 4331-1, ####[facility] LABCLIA [id number] [facility] [address] [place] [address] [place] Cholesterol non HDL [Mass/Vol] 75 mg/dL Normal <130 [facility] Comment on above: Order Comment: Speci men Type: BLOOD SPECIMENOrdering Facility: [facility] Address: [address] [place] [address] Result Comment: <130 mg/dL, Optimal 130-159 mg/dL, Near optimal/above optimal 160-189 mg/dL, Borderline high 190-219 mg/dL, High >219 mg/dL, Very high Secondary prevention optimal non HDL Cholesterol levels are recommended to be <100 mg/dL Performed By: #### 2 4331-1, ####[facility] LABCLIA [id number] [address] [place] [address] [place] Cholesterol.total/Antonia sterol in HDL [Mass ratio] 2.97 {ratio} Normal <5.10 [facility] Comment on above: Order Comment: Speci men Type: BLOOD SPECIMENOrdering Facility: [facility] Address: [address] [id number] Performed By: #### 2 4331-1, ####[facility] LABCLIA [id number] [address] [place] [address] [place] FASTING TIME 12 hrs Normal [facility] Comment on above: Order Comment: Speci men Type: BLOOD SPECIMENOrdering Facility: [facility] Address: [address] [id number] Performed By: #### 2 4331-1, 75471-9 ####[facility] LABCLIA [id number] [address] STATES OF [facility] Triglyceride [Mass/Vol] 86 mg/dL Normal <150 [facility] Comment on above: Order Comment: Speci men Type: BLOOD SPECIMENOrdering Facility: [facility] Address: [address] [place] [address] Result Comment: <150 mg/dL, Normal 150-199 mg/dL, Borderline high 200-499 mg/dL, High >499 mg/dL, Very high Performed By: #### 2 4331-1, 52307-4 ####[facility] LABCLIA [id number] [address] OF [facility] CNOVon 11-27-2024 [facility] ROSA MY[facility] ([id number]) 1950 F Date Time Provider Department 11/27/24 2:00 PM RUFINA SOARES [facility] During your visit today, we recorded the following information about you: Pulse Respiration Blood pressure Weight 65/minute 16/minute 126/80 109.8 kg Rufina Soares APRN.BELLMAN 11/27/2024 3:43 PM Signed This is a [...] CATARACT EXTRACTION HX Right 10/26/2017 EGD W/O [facility] SPEC VARICIES INJ N/A 02/24/2022 [...] 1 capsule by mouth once daily. Insulin [place], Disposable, (RELION PEN NEEDLES) 32 x 5/32 [...] swelling RESPIR (more content not included)... Normal [facility] MY[facility] ([id number]) 1950 F Date Time Provider Department 11/14/24 AMADO JAMES During your visit today, we recorded the following information about you: Judie Paiz RN 11/14/2024 10:11 AM Signed Joseph MICHELE with [facility] calls to let provider know that [...] call back needed unless provider has questions. RYNE Franco Jesse, APRN.CNP 11/14/2024 10:26 AM Signed Noted. Okay to continue with the plan. Maciel Busby APRN.BELLMAN Allergies As of Date: 11/14/2024 Noted Allergy [...] capsule by mouth once daily. - Insulin [place], Disposable, (RELION PEN NEEDLES) 32 x 5/32 [...] kidney disease, stage 4 (severe) (HCC) *04/15/2023 detention current use of insulin (HCC) [Z79.4] 10/15/2023 Heart failure, unspecified (HCC) [I50.9] 04/15/2023 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*04/15/2023 Encounter Status:Closed by MACIEL BUSBY on 11/14/24 [facility] [place] 10-20-2024 RENE[facility] Telephone (MALISSA) ROSA MYERS ([id number]) 1950 F Date Time Provider Department 10/20/24 AMADO JAMES During your visit today, we recorded the following information about you: Rajni Jiménez, RN 10/20/2024 12:14 PM Signed joseph with [facility] is calling to let pcp that they are re-certifying patient for nursing for help with wound care once weekly for the next 4 weeks. Allergies As of Date: 10/20/2024 Noted Allergy Reaction DIANA INHIBITORS 07/17/2005 NEOMYCIN 07/17/2005 Date Reviewed: 09/26/2024 Reviewed by: Yaz Christy MA - Fully Assessed Reason for Visit: Clinical Update [1175] Cmt: re-cert for Prescriptions as of 10/20/2024 [...] capsule by mouth once daily. - Insulin [place], Disposable, (RELION PEN NEEDLES) 32 x 5/32 [...] kidney disease, stage 4 (severe) (HCC) *04/15/2023 detention current use of insulin ([facility]) [Z79.4] 10/15/2023 Heart failure, unspecified ([facility]) [I50.9] 04/15/2023 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*04/15/2023 Encounter Status:Closed by RAJNI JIMÉNEZ on [facility]/20[facility] ROSA MYERS ([id number]) 1950 F Date Time Provider Department 09/29/24 AMADO JAMES [facility] During your visit today, we recorded the following information about you: Elsie Brock LPN 09/29/2024 10:13 AM Signed Joseph from [facility] calling to confirm pt's insulin dosages. [...] follws with wound center and Dr Erwin (medical reimbursement specialist). IZABEL Yi Mark D, MD 09/29/2024 10:53 [...] capsule by mouth once daily. - Insulin [place], Disposable, (RELION PEN NEEDLES) 32 x 5/32 [...] kidney disease, stage 4 (severe) (HCC) *04/15/2023 detention current use of insulin (HCC) [Z79.4] 10/15/2023 Heart failure, unspecified (HCC) [I50.9] 04/15/2023 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*04/15/2023 Encounter Status:Closed by YAZ CHRISTY on 09/29/24 [facility] CNOVon 09-26-2024 CNOV Office Visit (FAMPWS ) ROSA MYERS ([id number]) 1950 F Date Time Provider Department 09/26/24 9:40 AM AMADO JAMES [facility] During your visit today, we recorded [...] and [facility] have to go [facility] and stay, but is now back home. [...] 1 capsule by mouth once daily. Insulin [place], Disposable, (RELI (more content not included)... Normal [facility] 09-15-2024 [facility] Telephone (ZAINABWS) ROSA MYERS ([id number]) 1950 F Date Time Provider Department 09/15/24 AMADO JAMES [facility] During your visit today, we recorded the following information about you: Juana Castaneda RN 09/15/2024 10:42 AM Signed Juana calling from [facility] to report plan of care for patient and senior living will continue to visit patient 1 time a week for 2 weeks. Long Term will continue work with patient on wound care. No call back needed. RYNE Saldaña Jesse, APRN.CNP 09/15/2024 11:22 AM Signed Noted. Maciel Busby APRN.CNP Allergies As of Date: 09/15/2024 Noted Allergy Reaction DIANA INHIBITORS 07/17/2005 NEOMYCIN 07/17/2005 Date Reviewed: 08/28/2024 Reviewed by: Marguerite Rubio LPN - Fully Assessed Reason for Visit: Long Term Continued Plan of Care [Other] Prescriptions as [...] capsule by mouth once daily. - Insulin [place], Disposable, (RELION PEN NEEDLES) 32 x 5/32 [...] kidney disease, stage 4 (severe) (HCC) *04/15/2023 detention current use of insulin (HCC) [Z79.4] 10/15/2023 Heart failure, unspecified (HCC) [I50.9] 04/15/2023 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*04/15/2023 Encounter Status:Closed by MACIEL BUSBY on 09/15/24 [facility] Tele[facility] (FAMPWS) ROSA MYERS ([id number]) 1950 F Date Time Provider Department 09/11/24 [facility] During your visit today, we recorded the following information about you: Juana Castaneda RN 09/11/2024 9:28 AM Signed Patient's son Marcell calls with patient's blood sugars. Date AM Lunch Supper 09/07 [phone] 09/08 [phone] 09/09 [phone] RYNE Saldaña Ashley, APRN.[facility] 09/11/2024 3:31 PM Signed Can you [...] 3 times a day. IZABEL Parish Ashley, APRN.[facility] 09/13/2024 10:52 AM Signed Can you please [...] with PCP in 1 week. Rufina Soares APRN.BELLMAN Example insulin titration schedule: Start taking 10 [...] capsule by mouth once daily. - Insulin [place], Disposable, (RELION PEN NEEDLES) 32 x 5/32 " ndle Use as directed with insulin pen. 250.00. 4 injections/day. On insulin. - Blood-Glucose Meter, Drum-type (ACCU-CHEK COMPACT PLUS CARE) kit Use as directed (more content not included)... Normal [facility] [place] 09-08-2024 [facility]ENE[facility] Telephone (MALISSA) ROSA MYERS ([id number]) 1950 F Date Time Provider Department 09/08/24 ELDERBROCK, AMADO D COUMWS During your visit today, we recorded the following information about you: Rajni Jiménez RN 09/08/2024 11:07 AM Signed Isabel from [facility] is calling requesting an order for 1 [...] capsule by mouth once daily. - Insulin [place], Disposable, (RELION PEN NEEDLES) 32 x 5/32 [...] 09/30/2021 Chronic kidney disease, stage 4 (severe) (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) [Z79.4] 10/15/2023 Heart failure, unspecified ([facility]) [I50.9] 04/15/2023 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*04/15/2023 Encounter Status:Closed by MARIZA GRAHAM on 09/08/24 Normal [facility] (FAMPWS) ROSA MYERS ([id number]) 1950 F Date Time Provider Department 09/04/24 [facility] During your visit today, we recorded the following information about you: Angelica Nassar LPN 09/04/2024 10:01 AM Signed Isabel oncology social worker from [facility] Home Health is asking for a verbal [...] capsule by mouth once daily. - Insulin [place], Disposable, (RELION PEN NEEDLES) 32 x 5/32 [...] kidney disease, stage 4 (severe) (HCC) *04/15/2023 adjunct faculty for medical terminology current use of insulin (HCC) [Z79.4] 10/15/2023 Heart failure, unspecified (HCC) [I50.9] 04/15/2023 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*04/15/2023 Encounter Status:Closed by MARIZA GRAHAM on 09/04/24 [facility] [place] 09-01-20[facility] ROSA MYERS ([id number]) 1950 F Date Time Provider Department 09/01/24 RUFINA SOARES [facility] During your visit today, we recorded [...] if you want changes. IZABEL Lewis Ashley, APRN.BELLMAN 09/01/2024 2:53 PM Signed Can you please [...] capsule by mouth once daily. - Insulin [place], Disposable, (RELION PEN NEEDLES) 32 x 5/32 [...] 10/15/2023 Anemi (more content not included)... Normal [facility] CBC W Auto Differential pane l (Bld)on 08-31-2024 Basophils (Bld) [#/Vol] 0.06 10*3/uL Normal <0.11 [facility] Comment on above: Order Comment: Speci men Type: BLOOD SPECIMENOrdering Facility: [facility] Address: [address] [place] [address] Performed By: #### 5 7021-8 ####[facility] LABCLIA [id number] [place] [address] [place] Basophils/100 WBC (Bld) 0.8 % Normal [facility] Comment on above: Order Comment: Speci men Type: BLOOD SPECIMENOrdering Facility: [facility] Address: [address] [place] [address] Performed By: #### 5 7021-8 ####[facility] LABCLIA [id number] [place] [address] [place] Differential cell count method Nom (Bld) Auto Normal [facility] Comment on above: Order Comment: Speci men Type: BLOOD SPECIMENOrdering Facility: [facility] Address: [address] [place] [address] Performed By: #### 5 7021-8 ####[facility] LABCLIA [id number] [place] [address] [place] Eosinophils (Bld) [#/Vol] 0.20 10*3/uL Normal <0.46 [facility] Comment on above: Order Comment: Speci men Type: BLOOD SPECIMENOrdering Facility: [facility] Address: [address] [place] [address] Performed By: #### 5 7021-8 ####[facility] LABCLIA [id number] [place] [address] [place] Eosinophils/100 WBC (Bld) 2.6 % Normal [facility] Comment on above: Order Comment: Speci men Type: BLOOD SPECIMENOrdering Facility: [facility] Address: [address] [place] [address] Performed By: #### 5 7021-8 ####[facility] LABCLIA [id number] [place] [address] [place] Erythrocyte distribution width (RBC) [Ratio] 18.2 % High 11.5-15.0 [facility] Comment on above: Order Comment: Speci men Type: BLOOD SPECIMENOrdering Facility: [facility] Address: [address] [place] [address] Performed By: #### 5 7021-8 ####[facility] LABCLIA [id number] [place] [address] [place] Hematocrit (Bld) [Volume fraction] 28.2 % Low 36.0-46.0 [facility] Comment on above: Order Comment: Speci men Type: BLOOD SPECIMENOrdering Facility: [facility] Address: [address] [place] [address] Performed By: #### 5 7021-8 ####[facility] LABCLIA [id number] [place] [address] [place] Hemoglobin (Bld) [Mass/Vol] 8.3 g/dL Low 11.5-15.5 [facility] Comment on above: Order Comment: Speci men Type: BLOOD SPECIMENOrdering Facility: [facility] Address: [address] [place] [address] Performed By: #### 5 7021-8 ####[facility] LABCLIA [id number] [place] [address] [place] Immature granulocytes (Bld) [#/Vol] 10*3/uL Normal <0.10 [facility] Comment on above: Order Comment: Speci men Type: BLOOD SPECIMENOrdering Facility: [facility] Address: [address] [place] [address] Performed By: #### 5 7021-8 ####[facility] LABCLIA [id number] [place] [address] [place] Immature granulocytes/100 WBC (Bld) 0.3 % Normal [facility] Comment on above: Order Comment: Speci men Type: BLOOD SPECIMENOrdering Facility: [facility] Address: [address] [place] [address] Performed By: #### 5 7021-8 ####[facility] LABCLIA [id number] [place] [address] [place] Lymphocytes (Bld) [#/Vol] 1.12 10*3/uL Normal 1.00-4.00 [facility] Comment on above: Order Comment: Speci men Type: BLOOD SPECIMENOrdering Facility: [facility] Address: [address] [place] [address] Performed By: #### 5 7021-8 ####[facility] LABCLIA [id number] [place] [address] [place] Lymphocytes/100 WBC (Bld) 14.5 % Normal [facility] Comment on above: Order Comment: Speci men Type: BLOOD SPECIMENOrdering Facility: [facility] Address: [address] [place] [address] Performed By: #### 5 7021-8 ####[facility] [id number] [place] [address] [place] MCH (RBC) [Entitic mass] 25.2 pg Low 26.0-34.0 [facility] Comment on above: Order Comment: Speci men Type: BLOOD SPECIMENOrdering Facility: [facility] Address: [address] [place] [address] Performed By: #### 5 7021-8 ####[facility] [id number] [place] [address] [place] MCHC (RBC) [Mass/Vol] 29.4 g/dL Low 30.5-36.[address] [facility] Comment on above: Order Comment: Speci men Type: BLOOD SPECIMENOrdering Facility: [facility] Address: [address] [place] [address] Performed By: #### 5 7021-8 ####[facility] [id number] [place] [address] [place] MCV (RBC) [Entitic vol] 85.7 fL Normal 80.0-100.0 [facility] Comment on above: Order Comment: Speci men Type: BLOOD SPECIMENOrdering Facility: [facility] Address: [address] [place] [address] Performed By: #### 5 7021-8 ####[facility] [id number] [place] [address] [place] Monocytes (Bld) [#/Vol] 0.55 10*3/uL Normal <0.87 [facility] Comment on above: Order Comment: Speci men Type: BLOOD SPECIMENOrdering Facility: [facility] Address: [address] [place] [address] Performed By: #### 5 7021-8 ####[facility] LABCLIA [id number] [address] [id number] [place] Monocytes/100 WBC (Bld) 7.1 % Normal [facility] Comment on above: Order Comment: Speci men Type: BLOOD SPECIMENOrdering Facility: [facility] Address: [address] [place] [address] Performed By: #### 5 7021-8 ####[facility] LABCLIA [id number] [place] [address] [place] Neutrophils (Bld) [#/Vol] 5.77 10*3/uL Normal 1.45-7.50 [facility] Comment on above: Order Comment: Speci men Type: BLOOD SPECIMENOrdering Facility: [facility] Address: [address] [place] [address] Performed By: #### 5 7021-8 ####[facility] LABCLIA [id number] [place] [address] [place] Neutrophils/100 WBC (Bld) 74.7 % Normal [facility] Comment on above: Order Comment: Speci men Type: BLOOD SPECIMENOrdering Facility: [facility] Address: [address] [place] [address] Performed By: #### 5 7021-8 ####[facility] LABCLIA [id number] [place] [address] [place] Nucleated RBC (Bld) [#/Vol] 10*3/uL Normal <0.01 [facility] Comment on above: Order Comment: Speci men Type: BLOOD SPECIMENOrdering Facility: [facility] Address: [address] [place] [address] Performed By: #### 5 7021-8 ####[facility] LABCLIA [id number] [place] [address] [place] Nucleated RBC/100 WBC (Bld) [Ratio] 0.0 /100 WBC Normal [facility] Comment on above: Order Comment: Speci men Type: BLOOD SPECIMENOrdering Facility: [facility] Address: [address] [place] [address] Performed By: #### 5 7021-8 ####[facility] LABCLIA [id number] [place] [address] [place] Platelet mean volume (Bld) [Entitic vol] 11.3 fL Normal 9.0-12.7 [facility] Comment on above: Order Comment: Speci men Type: BLOOD SPECIMENOrdering Facility: [facility] Address: [address] [place] [address] Performed By: #### 5 7021-8 ####[facility] LABIA [id number] [place] [address] [place] Platelets (Bld) [#/Vol] 246 10*3/uL Normal 150-400 [facility] Comment on above: Order Comment: Speci men Type: BLOOD SPECIMENOrdering Facility: [facility] Address: [address] [place] [address] Performed By: #### 5 7021-8 ####[facility] LABIA [id number] [place] [address] [place] RBC (Bld) [#/Vol] 3.29 10*6/uL Low 3.90-5.20 [facility] Comment on above: Order Comment: Speci men Type: BLOOD SPECIMENOrdering Facility: [facility] Address: [address] [place] [address] Performed By: #### 5 7021-8 ####[facility] LABIA [id number] [place] [address] [place] WBC (Bld) [#/Vol] 7.72 10*3/uL Normal 3.70-11.00 [facility] Comment on above: Order Comment: Speci men Type: BLOOD SPECIMENOrdering Facility: [facility] Address: [address] [place] [address] Performed By: #### 5 7021-8 ####[facility] LABCLIA [id number] [place] [address] [place] Comprehensive metabolic 2000 panelon 08-31-2024 Albumin [Mass/Vol] 3.7 g/dL Low 3.9-4.9 [facility] Comment on above: Order Comment: Speci men Type: BLOOD SPECIMENOrdering Facility: [facility] Address: [address] [place] [address] Performed By: #### 2 4323-8, 08473-6 ####[facility] LABCLIA [id number] [place] [address] [place] ALP [Catalytic activity/Vol] 76 U/L Normal 34-123 [facility] Comment on above: Order Comment: Speci men Type: BLOOD SPECIMENOrdering Facility: [facility] Address: [address] [place] [address] Performed By: #### 2 4323-8, 87640-0 ####[facility] LABCLIA [id number] [place] [address] [place] ALT [Catalytic activity/Vol] 10 U/L Normal 7-38 [facility] Comment on above: Order Comment: Speci men Type: BLOOD SPECIMENOrdering Facility: [facility] Address: [address] [place] [address] Performed By: #### 2 4323-8, 57638-4 ####[facility] LABCLIA [id number] [place] [id number] [place] Anion gap [Moles/Vol] 15 mmol/L Normal 8-[address] [facility] Comment on above: Order Comment: Speci men Type: BLOOD SPECIMENOrdering Facility: [facility] Address: [address] [place] [address] Performed By: #### 2 4323-8, 86054-8 ####[facility] LABCLIA [id number] [place] [address] [place] AST [Catalytic activity/Vol] 11 U/L Low 13-35 [facility] Comment on above: Order Comment: Speci men Type: BLOOD SPECIMENOrdering Facility: [facility] Address: [address] [place] [address] Performed By: #### 2 4323-8, 43727-1 ####[facility] LABCLIA [id number] [place] [address] [place] Bilirubin [Mass/Vol] 0.4 mg/dL Normal 0.2-1.3 [facility] Comment on above: Order Comment: Speci men Type: BLOOD SPECIMENOrdering Facility: [facility] Address: [address] [place] [address] Performed By: #### 2 4323-8, 54087-0 ####[facility] LABCLIA [id number] [place] [address] [place] Calcium [Mass/Vol] 9.4 mg/dL Normal 8.5-10.2 [facility] Comment on above: Order Comment: Speci men Type: BLOOD SPECIMENOrdering Facility: [facility] Address: [address] [place] [address] Performed By: #### 2 4323-8, 64724-8 ####[facility] LABCLIA [id number] [place] [address] [place] Chloride [Moles/Vol] 100 mmol/L Normal 98-107 [facility] Comment on above: Order Comment: Speci men Type: BLOOD SPECIMENOrdering Facility: [facility] Address: [address] [place] [address] Performed By: #### 2 4323-8, 94682-1 ####[facility] LABCLIA [id number] [place] [address] [place] CO2 [Moles/Vol] 22 mmol/L Normal 22-30 [facility] Comment on above: Order Comment: Speci men Type: BLOOD SPECIMENOrdering Facility: [facility] Address: [address] [place] [address] Performed By: #### 2 4323-8, ####[facility] LABCLIA [id number] [address] [address] [place] Creatinine [Mass/Vol] 1.79 mg/dL High 0.58-0.[address] [facility] Comment on above: Order Comment: Speci men Type: BLOOD SPECIMENOrdering Facility: [facility] Address: [address] [place] [address] Performed By: #### 2 4323-8, ####[facility] LABCLIA [id number] [place] [address] [place] Creatinine and Glomerular filtration rate.predicted panel (S/P/Bld) 29 mL/min/1.73m??? Low >=60 [facility] Comment on above: Order Comment: Speci men Type: BLOOD SPECIMENOrdering Facility: [facility] Address: [address] [place] [address] Result Comment: Kathrine mated Glomerular Filtration Rate [...] actual GFR. Performed By: #### 2 4323-8, ####[facility] LABCLIA [id number] [place] [address] [place] Glucose [Mass/Vol] 271 mg/dL High 74-99 [facility] Comment on above: Order Comment: Speci men Type: BLOOD SPECIMENOrdering Facility: [facility] Address: [address] [place] [address] Result Comment: The [place] Diabetes Association (ADA) provides guidance for cutoff [...] Standards of Medical Care in Diabetes 2016, [place] Diabetes Association. Diabetes Care. 2016.39(Suppl 1). Performed By: #### 2 4323-8, 58773-9 ####[facility] LABCLIA [id number] [place] [address] [place] Potassium [Moles/Vol] 4.4 mmol/L Normal 3.7-5.[address] [facility] Comment on above: Order Comment: Speci men Type: BLOOD SPECIMENOrdering Facility: [facility] Address: [address] [place] [address] Performed By: #### 2 4323-8, 31447-6 ####[facility] LABIA [id number] [place] [address] [place] Protein [Mass/Vol] 6.9 g/dL Normal 6.3-8.0 [facility] Comment on above: Order Comment: Speci men Type: BLOOD SPECIMENOrdering Facility: [facility] Address: [address] [place] [address] Performed By: #### 2 4323-8, 03412-6 ####[facility] LABIA [id number] [place] [address] [place] Sodium [Moles/Vol] 137 mmol/L Normal 136-144 [facility] Comment on above: Order Comment: Speci men Type: BLOOD SPECIMENOrdering Facility: [facility] Address: [address] [place] [address] Performed By: #### 2 4323-8, 54759-8 ####[facility] LABCLIA [id number] [place] [address] [place] Urea nitrogen [Mass/Vol] 28 mg/dL High 7-21 [facility] Comment on above: Order Comment: Maxim davies Type: BLOOD SPECIMENOrdering Facility: [facility] Address: [address] [place] [address] Performed By: #### 2 4323-8, 41213-7 ####[facility] LABIA [id number] [place] [address] [place] HbA1c (Bld)on 08-31-2024 Average glucose Estimated from glycated hemoglobin (Bld) [Mass/Vol] 111 mg/dL Normal [facility] Comment on above: Order Comment: [facility] Type: BLOOD SPECIMENOrdering Facility: [facility] Address: [address] [place] [address] Result Comment: eAG: (Estimated average glucose) is a calculated value from HgbA1c and is field marketing representative of the average blood glucose level in the last 2-3 month period. Performed By: #### 5 5454-3 ####[facility] LABIA [id number] [address] [place] HbA1c (Bld) [Mass fraction] 5.5 % Normal 4.3-5.6 [facility] Comment on above: Order Comment: Maxim [facility] Type: BLOOD SPECIMENOrdering Facility: [facility] Address: [address] [place] [address] Result Comment: [place] Diabetes Association guidelines indicate that patients with HgbA1c in the range 5.7-6.4% are at increased risk for development of diabetes, and intervention by lifestyle modification may be beneficial. HgbA1c greater or equal to 6.5% is considered diagnostic of diabetes. Performed By: #### 5 5454-3 ####[facility] LABIA [id number] [place] [address] [place] Lipid 1996 panelon 4 Cholesterol [Mass/Vol] 116 mg/dL Normal <200 [facility] Comment on above: Order Comment: Speci men Type: BLOOD SPECIMENOrdering Facility: [facility] Address: [address] [place] [address] Result Comment: <200 mg/dL, Desirable 200-239 mg/dL, Borderline high >239 mg/dL, High Performed By: #### 2 4323-8, 41907-8 ####[facility] LABCLIA [id number] [place] [address] [place] Cholesterol in HDL [Mass/Vol] 35 mg/dL Low >39 [facility] Comment on above: Order Comment: Speci men Type: BLOOD SPECIMENOrdering Facility: [facility] Address: [address] [place] [address] Result Comment: 40-5 9 mg/dL, Acceptable >59 mg/dL, High: Negative risk factor for coronary heart disease <40 mg/dL, Low: Positive risk factor for coronary heart disease Performed By: #### 2 4323-8, 03276-4 ####[facility] LABCLIA [id number] [place] [address] [place] Cholesterol in LDL [Mass/Vol] 54 mg/dL Normal <100 [facility] Comment on above: Order Comment: Speci men Type: BLOOD SPECIMENOrdering Facility: [facility] Address: [address] [place] [address] Result Comment: <100 mg/dL, Optimal 100-129 mg/dL, Near optimal/above optimal 130-159 mg/dL, Borderline high 160-189 mg/dL, High >189 mg/dL, Very high Secondary prevention optimal LDL Cholesterol levels are recommended to be < 70 mg/dL Performed By: #### 2 4323-8, 85401-0 ####[facility] LABCLIA [id number] [place] [address] [place] Cholesterol in LDL/Cholesterol in HDL [Mass ratio] 1.54 {ratio} Normal <2.54 [facility] Comment on above: Order Comment: Speci men Type: BLOOD SPECIMENOrdering Facility: [facility] Address: [address] [place] [address] Result Comment: Ermias sheffield: 1. National Cholesterol Education Program ATP III Guideline At-A-Glance Quick Desk Reference: National Heart, Lung, and Blood Xenia. National Institutes of Health. 2001: NIH Publication No. 01-3305. 2. An International Atherosclerosis Society position paper: global recommendations for the management of dyslipidemia: executive summary, Atherosclerosis. 2014: 232(2):410-413. Performed By: #### 2 4323-8, 78683-3 ####[facility] LABCLIA [id number] [place] [address] [place] Cholesterol in VLDL [Mass/Vol] 27 mg/dL Normal <30 [facility] Comment on above: Order Comment: Trevoryoandy davies Type: BLOOD SPECIMENOrdering Facility: [facility] Address: [address] [place] [address] Performed By: #### 2 4323-8, 41190-8 ####[facility] LABCLIA [id number] [place] [address] [place] Cholesterol non HDL [Mass/Vol] 81 mg/dL Normal <130 [facility] Comment on above: Order Comment: Maxim keke Type: BLOOD SPECIMENOrdering Facility: [facility] Address: [address] [place] [address] Result Comment: <130 mg/dL, Optimal 130-159 mg/dL, Near optimal/above optimal 160-189 mg/dL, Borderline high 190-219 mg/dL, High >219 mg/dL, Very high Secondary prevention optimal non HDL Cholesterol levels are recommended to be <100 mg/dL Performed By: #### 2 4323-8, 47417-0 ####[facility] LABCLIA [id number] [place] [address] [place] Cholesterol.total/Antonia sterol in HDL [Mass ratio] 3.31 {ratio} Normal <5.10 [facility] Comment on above: Order Comment: Speci men Type: BLOOD SPECIMENOrdering Facility: [facility] Address: [address] [place] [address] Performed By: #### 2 4323-8, 99776-8 ####[facility] LABCLIA [id number] [place] [address] [place] FASTING TIME 12 hrs Normal [facility] Comment on above: Order Comment: Speci men Type: BLOOD SPECIMENOrdering Facility: [facility] Address: [address] [place] [address] Performed By: #### 2 4323-8, 48025-0 ####[facility] LABCLIA [id number] [place] [address] [place] Triglyceride [Mass/Vol] 133 mg/dL Normal <150 [facility] Comment on above: Order Comment: Speci men Type: BLOOD SPECIMENOrdering Facility: [facility] Address: [address] [place] [address] Result Comment: <150 mg/dL, Normal 150-199 mg/dL, Borderline high 200-499 mg/dL, High >499 mg/dL, Very high Performed By: #### 2 4323-8, 38556-8 ####[facility] LABCLIA [id number] [place] [address] [place] CNPNancie 08-30-2024 CNPN Telephone (FAMWS) ROSA MYERS ([id number]) 1950 F Date Time Provider Department 08/30/24 AMADO JAMES [facility] During your visit today, we recorded the following information about you: Aimee French RN 08/30/2024 1:38 PM Signed RICKY Gardner @ [facility] calling with plan of care. OT will see patient 1 x/weekf for one week, 2 x/week for two weeks, and 1x/week for one week for safety and strength training needed for ADLs. If agree, no call back needed. RYNE Duval Ashley, APRN.RENEE 08/31/2024 7:28 AM Signed Noted, thank you Rufina Soares APRN.BELLMAN Allergies As of Date: 08/30/2024 Noted Allergy [...] capsule by mouth once daily. 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) [Z79.4] 10/15/2023 Heart failure, unspecified (HCC) [I50.9] 04/15/2023 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*04/15/2023 Encounter Status:Closed by RUFINA SOARES on 08/31/24 Normal [facility] CNPNon 08-29-2024 CNPN Telephone (FAMPWS) LOUISROSA Garrett ([id number]) 1950 F Date Time Provider Department 08/29/24 [facility] During your visit today, we recorded the following information about you: Juana Castaneda RN 08/29/2024 11:01 AM Signed Rufina PT calling from [facility] to report plan of care for patient and physical therapy will visit patient 1 time a week for 1 week, 2 times a week for 3 weeks and 1 time a week for 1 week. Physical therapy will work with patient on lower extremity strength, transfer and gait training, and balance and endurance. No call back needed unless there are questions RYNE Sladaña Mark D, MD 08/29/2024 2:06 PM Signed [...] capsule by mouth once daily. - Insulin [place], Disposable, (RELION PEN NEEDLES) 32 x 5/32 [...] kidney disease, stage 4 (severe) (HCC) *04/15/2023 detention current use of insulin (HCC) [Z79.4] 10/15/2023 Heart failure, unspecified (HCC) [I50.9] 04/15/2023 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*04/15/2023 Encounter Status:Closed by AMADO JAMES on 08/29/24 [facility] 08-28-2024 CNOV Office Visit (CLYDEPWS ) ROSA MYERS ([id number]) 1950 F Date Time Provider Department 08/28/24 2:00 PM RUFINA SOARES During your visit today, we recorded the following information about you: Pulse Respiration Blood pressure Weight 70/minute 16/minute 128/60 113 kg Rufina Soares APRN.BELLMAN 08/28/2024 2:08 PM Addendum Get fasting labs [...] 10 units and Notify Provider Rufina Soares APRN.BELLMAN 08/28/2024 4:06 PM Signed This is a 74 year old female who presents today with: Patient presents with: Follow Up: Hosptial follow up hupoglycemia HISTORY OF PRESENT ILLNESS: Rosa Myers is a 74 year old female. Patient presents with: Follow Up[facility]ER FOLLOW UP: Reason for visit: Altered level of consciousness transported by EMS Which facility: [facility] Date of visit: 08/19/2024-08/22/2024 Diagnosis: Hypoglycemia, hypothermia, [...] History of diabetic ulcers/wounds Follows with cardiology, [facility], . Living with , son lives in [facility] on same property. PAST MEDICAL HISTORY: PAST MEDICAL HISTORY Diagnosis Date Allergic rhinitis due to other allergen Essential hypertension, benign Type II or unspecified type diabetes mellitus without mention of complication, uncontrolled PAST SURGICAL HISTORY Procedure Laterality Date CATARACT EXTRACTION HX Right 10/26/2017 EGD W/O [facility] SPEC VARICIES INJ N/A 02/24/2022 [...] NEEDLE) 31 (more content not included)... Normal [facility] 08-25-2024 CNPN Telephone (FAMPWS) ROSA MYERS ([id number]) 1950 F Date Time Provider Department 08/25/24 [facility] During your visit today, we recorded [...] capsule by mouth once daily. - Insulin [place], Disposable, (RELION PEN NEEDLES) 32 x 5/32 [...] kidney disease, stage 4 (severe) (HCC) *04/15/2023 detention current use of insulin (HCC) [Z79.4] 10/15/2023 Heart failure, unspecified (HCC) [I50.9] 04/15/2023 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*04/15/2023 Encounter Status:Closed by MARIZA GRAHAM on 08/25/24 [facility] 08-22-2024 AUDELIA Telephone (HALEY) ROSA MYERS ([id number]) 1950 F Date Time Provider Department 08/22/24 [facility] During your visit today, we recorded the following information about you: Hyacinth Greer LPN 08/22/2024 9:39 AM Vesna Mclean with [facility] is calling to report that pt is currently in [facility] for hypoglycemia. Pt may get discharged today or tomorrow and possibly with 2L of O2. Pt has orders for senior living, PT, OT, and SW. Vinay is asking for VO from provider that provider will follow pt while in . IZABEL Amaral Jesse, APRN.RENEE 08/22/2024 2:26 PM Signed Please let Vinay [...] capsule by mouth once daily. - Insulin [place], Disposable, (RELION PEN NEEDLES) 32 x 5/32 [...] kidney disease, stage 4 (severe) (HCC) *04/15/2023 detention current use of insulin (HCC) [Z79.4] 10/15/2023 Heart failure, unspecified (HCC) [I50.9] 04/15/2023 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*04/15/2023 Encounter Status:Closed by CHUYITA FONTANA on 08/22/24 [facility] 08-18-2024 AUDELIA Telephone ([facility]) ROSA MYERS ([id number]) 1950 F Date Time Provider Department 08/18/24 AMADO JAMES During your visit today, we recorded the following information about you: Diana Whittington LPN 08/18/2024 3:33 PM Signed Will from [facility] calling asking if PCP would follow patient and sign orders for PT/OT? Patient was in [facility]. Please advise Amado James MD 08/18/2024 4:39 PM Signed I will follow and sign orders as requested MD Mackenzie Nava Beth, LPN 08/18/2024 4:43 PM Signed Phoned [facility] order line and left detailed message with [...] capsule by mouth once daily. - Insulin [place], Disposable, (RELION PEN NEEDLES) 32 x 5/32 [...] kidney disease, stage 4 (severe) (HCC) *04/15/2023 detention current use of insulin (HCC) [Z79.4] 10/15/2023 Heart failure, unspecified ([facility]) [I50.9] 04/15/2023 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*04/15/2023 Encounter Status:Closed by DIANA WHITTINGTON on 08/18/24 [facility] 07-13-2024 CNPN Telephone (FAMWS) ROSA MYERS ([id number]) 1950 F Date Time Provider Department 07/13/24 AMADO JAMES [facility] During your visit today, we recorded the following information about you: Laura Palomares LPN 07/13/2024 3:53 PM Signed Dolly pharmacist from [facility] calling states received script for Levemir for pt this is being discontinued . There are no alternatives coming up but she states most likely Lantus. . New script needs sent to [facility] for pt. Amado James MD 07/13/2024 4:09 [...] insulin, unspecified CKD stage (HCC) [E11.22, Z79.4] Order(s):insulin glargine (LANTUS SOLOSTAR U-100 [...] capsule by mouth once daily. - Insulin [place], Disposable, (RELION PEN NEEDLES) 32 x 5/32 [...] kidney disease, stage 4 (severe) (HCC) *04/15/2023 detention current use of insulin (HCC) [Z79.4] 10/15/2023 [...] Encounter Status:Closed by ASTON FELDER on 07/13/24 [facility] 07-11-2024 CNOV Office Visit (FAMPWS ) ROSA MYERS ([id number]) 1950 F Date Time Provider Department 07/11/24 4:00 PM AMADO JAMESPWS During your visit today, we recorded the [...] as PCP - General Dr. Stallings or [employer] Provider - [facility]/Cardiology. Dr. Erwin - Podiatry/Wound Center. [...] with exertion. Does follow with Cardiology at [facility], has appt tomorrow. On current regimen of Diovan 160 mg once daily and Coreg 12.5 mg bid. Lipid/CAD - Taking Plavix 75 mg once daily, Lipitor 40 mg once daily and ASA 81 mg daily. Follows with [facility]. DM - Checks sugars at home once daily with FBS of 90 this morning. Generally FBS is 130-160. Has been having increased episodes of lows (5) over the past month, seems to correlate with increased use of abx due to her wounds. Is following with Dr. Erwin at [facility] and [facility] for wound on b/l feet. [...] daily. E (more content not included)... Normal [facility] (FAMWS) ROSA MYERS ([id number]) 1950 F Date Time Provider Department 06/16/24 AMADO JAMES [facility] During your visit today, we recorded the following information about you: Aston Felder RN 06/16/2024 11:39 AM Signed Patricia [facility] called in and wanted Pts last OV note faxed over. She states the only diagnosis they have is foot ulcer, and she wanted more diagnoses to put down. Faxed last OV note to fax # [phone]. Allergies As of Date: 06/16/2024 Noted Allergy [...] capsule by mouth once daily. - Insulin [place], Disposable, (RELION PEN NEEDLES) 32 x 5/32 [...] kidney disease, stage 4 (severe) (HCC) *04/15/2023 detention current use of insulin (HCC) [Z79.4] 10/15/2023 Heart failure, unspecified (HCC) [I50.9] 04/15/2023 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*04/15/2023 Encounter Status:Closed by ASTON FELDER on 06/16/24 [facility] MY[facility] ([id number]) 1950 F Date Time Provider Department 06/02/24 [facility] During your visit today, we recorded the following information about you: Aga Castro RN 06/02/2024 2:35 PM Signed Joseph with [facility] calling and requesting most recent office visit for patient be faxed to them at [phone] for continuity of care for Home Health [...] capsule by mouth once daily. - Insulin [place], Disposable, (RELION PEN NEEDLES) 32 x 5/32 [...] kidney disease, stage 4 (severe) (HCC) *04/15/2023 adjunct faculty for medical terminology current use of insulin (HCC) [Z79.4] 10/15/2023 Heart failure, unspecified (HCC) [I50.9] 04/15/2023 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*04/15/2023 Encounter Status:Closed by AGA CASTRO on 06/02/24 [facility] 05-06-2024 CNOV Office Visit (CLYDEPWS ) ROSA MYERS ([id number]) 1950 F Date Time Provider Department 05/06/24 [...] CATARACT EXTRACTION HX; Right 02/24/2022: EGD W/O [facility] SPEC VARICIES INJ; N/A 1987: [...] 1 capsule by mouth once daily. Insulin [place], Disposable, (RELION PEN NEEDLES) 32 x 5/32 [...] done Shingrix (more content not included)... Normal [facility] CNPNon 04-18-2024 CNPN Telephone (FAMPWS) ROSA MYERS ([id number]) 1950 F Date Time Provider Department 04/18/24 AMADO JAMES [facility] During your visit today, we recorded [...] capsule by mouth once daily. - Insulin [place], Disposable, (RELION PEN NEEDLES) 32 x 5/32 [...] kidney disease, stage 4 (severe) (HCC) *04/15/2023 detention current use of insulin (HCC) [Z79.4] 10/15/2023 Heart failure, unspecified (HCC) [I50.9] 04/15/2023 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*04/15/2023 Encounter Status:Closed by DIANA WHITTINGTON on 04/19/24 Normal [facility] CBC panel Auto (Bld)on 04-15 Erythrocyte distribution width (RBC) [Ratio] 15.9 % High 11.5-15.0 [facility] Comment on above: Order Comment: Speci men Type: BLOOD SPECIMENOrdering Facility: [facility] Address: [address] [place] [address] Performed By: #### 5 8410-2 ####[facility] LABCLIA [id number] [address] [id number] [address] [place] Hematocrit (Bld) [Volume fraction] 36.0 % Normal 36.0-46.0 [facility] Comment on above: Order Comment: Speci men Type: BLOOD SPECIMENOrdering Facility: [facility] Address: [address] [place] [address] Performed By: #### 5 8410-2 ####[facility] LABCLIA [id number] [place] [address] [place] Hemoglobin (Bld) [Mass/Vol] 10.9 g/dL Low 11.5-15.5 [facility] Comment on above: Order Comment: Speci men Type: BLOOD SPECIMENOrdering Facility: [facility] Address: [address] [place] [address] Performed By: #### 5 8410-2 ####[facility] LABCLIA [id number] [place] [address] [place] MCH (RBC) [Entitic mass] 26.8 pg Normal 26.0-34.0 [facility] Comment on above: Order Comment: Speci men Type: BLOOD SPECIMENOrdering Facility: [facility] Address: [address] [place] [address] Performed By: #### 5 8410-2 ####[facility] LABCLIA [id number] [place] [address] [place] MCHC (RBC) [Mass/Vol] 30.3 g/dL Low 30.5-36.[address] [facility] Comment on above: Order Comment: Speci men Type: BLOOD SPECIMENOrdering Facility: [facility] Address: [address] [place] [address] Performed By: #### 5 8410-2 ####[facility] LABCLIA [id number] [place] [address] [place] MCV (RBC) [Entitic vol] 88.7 fL Normal 80.0-100.0 [facility] Comment on above: Order Comment: Speci men Type: BLOOD SPECIMENOrdering Facility: [facility] Address: [address] [place] [address] Performed By: #### 5 8410-2 ####[facility] LABIA [id number] [place] [address] [place] Nucleated RBC (Bld) [#/Vol] 10*3/uL Normal <0.01 [facility] Comment on above: Order Comment: Speci men Type: BLOOD SPECIMENOrdering Facility: [facility] Address: [address] [place] [address] Performed By: #### 5 8410-2 ####[facility] LABIA [id number] [place] [address] [place] Platelet mean volume (Bld) [Entitic vol] 11.9 fL Normal 9.0-12.7 [facility] Comment on above: Order Comment: Speci men Type: BLOOD SPECIMENOrdering Facility: [facility] Address: [address] [place] [address] Performed By: #### 5 8410-2 ####[facility] LABIA [id number] [place] [address] [place] Platelets (Bld) [#/Vol] 200 10*3/uL Normal 150-400 [facility] Comment on above: Order Comment: Speci men Type: BLOOD SPECIMENOrdering Facility: [facility] Address: [address] [place] [address] Performed By: #### 5 8410-2 ####[facility] LABIA [id number] [place] [address] [place] RBC (Bld) [#/Vol] 4.06 10*6/uL Normal 3.90-5.20 [facility] Comment on above: Order Comment: Speci men Type: BLOOD SPECIMENOrdering Facility: [facility] Address: [address] [place] [address] Performed By: #### 5 8410-2 ####[facility] LABCLIA [id number] [address] [address] [place] WBC (Bld) [#/Vol] 8.10 10*3/uL Normal 3.70-11.00 [facility] Comment on above: Order Comment: Speci men Type: BLOOD SPECIMENOrdering Facility: [facility] Address: [address] [place] [address] Performed By: #### 5 8410-2 ####[facility] LABCLIA [id number] [place] [address] [place] Comprehensive metabolic 2000 panelon 04-15-2024 Albumin [Mass/Vol] 4.1 g/dL Normal 3.9-4.9 [facility] Comment on above: Order Comment: Speci men Type: BLOOD SPECIMENOrdering Facility: [facility] Address: [address] [place] [address] Performed By: #### 2 4323-8, 38482-7 ####[facility] LABIA [id number] [place] [address] [place] ALP [Catalytic activity/Vol] 102 U/L Normal 34-123 [facility] Comment on above: Order Comment: Speci men Type: BLOOD SPECIMENOrdering Facility: [facility] Address: [address] [place] [address] Performed By: #### 2 4323-8, 07240-5 ####[facility] LABCLIA [id number] [place] [id number] [place] ALT [Catalytic activity/Vol] 17 U/L Normal 7-38 [facility] Comment on above: Order Comment: Speci men Type: BLOOD SPECIMENOrdering Facility: [facility] Address: [address] [place] [address] Performed By: #### 2 4323-8, 11876-9 ####[facility] LABCLIA [id number] [place] [address] [place] Anion gap [Moles/Vol] 15 mmol/L Normal 8-[address] [facility] Comment on above: Order Comment: Speci men Type: BLOOD SPECIMENOrdering Facility: [facility] Address: [address] [place] [address] Performed By: #### 2 4323-8, 77542-2 ####[facility] LABCLIA [id number] [place] [address] [place] AST [Catalytic activity/Vol] 17 U/L Normal 13-35 [facility] Comment on above: Order Comment: Speci men Type: BLOOD SPECIMENOrdering Facility: [facility] Address: [address] [place] [address] Performed By: #### 2 4323-8, 99994-5 ####[facility] LABCLIA [id number] [place] [address] [place] Bilirubin [Mass/Vol] 0.6 mg/dL Normal 0.2-1.3 [facility] Comment on above: Order Comment: Speci men Type: BLOOD SPECIMENOrdering Facility: [facility] Address: [address] [place] [address] Performed By: #### 2 4323-8, 31866-3 ####[facility] LABCLIA [id number] [place] [address] [place] Calcium [Mass/Vol] 9.0 mg/dL Normal 8.5-10.2 [facility] Comment on above: Order Comment: Speci men Type: BLOOD SPECIMENOrdering Facility: [facility] Address: [address] [place] [address] Performed By: #### 2 4323-8, 17195-3 ####[facility] LABCLIA [id number] [place] [address] [place] Chloride [Moles/Vol] 104 mmol/L Normal 98-107 [facility] Comment on above: Order Comment: Speci men Type: BLOOD SPECIMENOrdering Facility: [facility] Address: [address] [place] [address] Performed By: #### 2 4323-8, 25564-4 ####[facility] LABCLIA [id number] [place] [address] [place] CO2 [Moles/Vol] 22 mmol/L Normal 22-30 [facility] Comment on above: Order Comment: Speci men Type: BLOOD SPECIMENOrdering Facility: [facility] Address: [address] [place] [address] Performed By: #### 2 4323-8, 13914-0 ####[facility] LABIA [id number] [place] [address] [place] Creatinine [Mass/Vol] 1.66 mg/dL High 0.58-0.[address] [facility] Comment on above: Order Comment: Speci men Type: BLOOD SPECIMENOrdering Facility: [facility] Address: [address] [place] [address] Performed By: #### 2 4323-8, 02115-5 ####[facility] LABIA [id number] [address] [place] Creatinine and Glomerular filtration rate.predicted panel (S/P/Bld) 32 mL/min/1.73m??? Low >=60 [facility] Comment on above: Order Comment: Speci men Type: BLOOD SPECIMENOrdering Facility: [facility] Address: [address] [place] [address] Result Comment: Kathrine mated Glomerular Filtration Rate [...] actual GFR. Performed By: #### 2 4323-8, 25299-1 ####[facility] LABCLIA [id number] [address] [address] [place] Glucose [Mass/Vol] 228 mg/dL High 74-99 [facility] Comment on above: Order Comment: Speci men Type: BLOOD SPECIMENOrdering Facility: [facility] Address: [address] [place] [address] Result Comment: The [place] Diabetes Association (ADA) provides guidance for cutoff [...] Standards of Medical Care in Diabetes 2016, [place] [employer] Association. Diabetes Care. 2016.39(Suppl 1). Performed By: #### 2 4323-8, 56762-6 ####[facility] LABIA [id number] [place] [address] [place] Potassium [Moles/Vol] 4.8 mmol/L Normal 3.7-5.[address] [facility] Comment on above: Order Comment: Speci men Type: BLOOD SPECIMENOrdering Facility: [facility] Address: [address] [place] [address] Performed By: #### 2 4323-8, 32733-1 ####[facility] LABIA [id number] [place] [address] [place] Protein [Mass/Vol] 7.2 g/dL Normal 6.3-8.0 [facility] Comment on above: Order Comment: Speci men Type: BLOOD SPECIMENOrdering Facility: [facility] Address: [address] [place] [address] Performed By: #### 2 4323-8, 08275-3 ####[facility] LABIA [id number] [place] [address] [place] Sodium [Moles/Vol] 141 mmol/L Normal 136-144 [facility] Comment on above: Order Comment: Speci men Type: BLOOD SPECIMENOrdering Facility: [facility] Address: [address] [place] [address] Performed By: #### 2 4323-8, 68413-3 ####[facility] LABIA [id number] [place] [address] [place] Urea nitrogen [Mass/Vol] 37 mg/dL High 7-21 [facility] Comment on above: Order Comment: Speci men Type: BLOOD SPECIMENOrdering Facility: [facility] Address: [address] [place] [address] Performed By: #### 2 4323-8, 26317-2 ####[facility] [id number] [place] [address] [place] HbA1c (Bld)on 04-15-2024 Average glucose Estimated from glycated hemoglobin (Bld) [Mass/Vol] 180 mg/dL Normal [facility] Comment on above: Order Comment: Speci men Type: BLOOD SPECIMENOrdering Facility: [facility] Address: [address] [place] [address] Result Comment: eAG: (Estimated average glucose) is a calculated value from HgbA1c and is field marketing representative of the average blood glucose level in the last 2-3 month period. Performed By: #### 5 5454-3 ####[facility] LABS[facility] [id number] [place] [address] [place] HbA1c (Bld) [Mass fraction] 7.9 % High 4.3-5.6 [facility] Comment on above: Order Comment: Speci men Type: BLOOD SPECIMENOrdering Facility: [facility] Address: [address] [place] [address] Result Comment: [place] Diabetes Association guidelines indicate that patients with HgbA1c in the range 5.7-6.4% are at increased risk for development of diabetes, and intervention by lifestyle modification may be beneficial. HgbA1c greater or equal to 6.5% is considered diagnostic of diabetes. Performed By: #### 5 5454-3 ####[facility] LABCLIA [id number] [place] [address] [place] Lipid 1996 panelon 4 Cholesterol [Mass/Vol] 131 mg/dL Normal <200 [facility] Comment on above: Order Comment: Trevori men Type: BLOOD SPECIMENOrdering Facility: [facility] Address: [address] [place] [address] Result Comment: <200 mg/dL, Desirable 200-239 mg/dL, Borderline high >239 mg/dL, High Performed By: #### 2 4323-8, 79622-4 ####[facility] LABIA [id number] [address] [place] Cholesterol in HDL [Mass/Vol] 34 mg/dL Low >39 [facility] Comment on above: Order Comment: Maxim davies Type: BLOOD SPECIMENOrdering Facility: [facility] Address: [address] [place] [address] Result Comment: 40-5 9 mg/dL, Acceptable >59 mg/dL, High: Negative risk factor for coronary heart disease <40 mg/dL, Low: Positive risk factor for coronary heart disease Performed By: #### 2 4323-8, 50955-8 ####[facility] LABCLIA [id number] [address] [place] Cholesterol in LDL [Mass/Vol] 68 mg/dL Normal <100 [facility] Comment on above: Order Comment: Maxim davies Type: BLOOD SPECIMENOrdering Facility: [facility] Address: [address] [place] [address] Result Comment: <100 mg/dL, Optimal 100-129 mg/dL, Near optimal/above optimal 130-159 mg/dL, Borderline high 160-189 mg/dL, High >189 mg/dL, Very high Secondary prevention optimal LDL Cholesterol levels are recommended to be < 70 mg/dL Performed By: #### 2 4323-8, 27182-1 ####[facility] LABCLIA [id number] [place] [address] [place] Cholesterol in LDL/Cholesterol in HDL [Mass ratio] 2.00 {ratio} Normal <2.54 [facility] Comment on above: Order Comment: Speci men Type: BLOOD SPECIMENOrdering Facility: [facility] Address: [address] [place] [address] Result Comment: Refe rence: 1. National Cholesterol Education Program ATP III Guideline At-A-Glance Quick Desk Reference: National Heart, Lung, and Blood Xenia. National Institutes of Health. 2001: NIH Publication No. 01-3305. 2. An International Atherosclerosis Society position paper: global recommendations for the management of dyslipidemia: executive summary, Atherosclerosis. 2014: 232(2):410-413. Performed By: #### 2 4323-8, 68169-2 ####[facility] LABCLIA [id number] [place] [address] [place] Cholesterol in VLDL [Mass/Vol] 29 mg/dL Normal <30 [facility] Comment on above: Order Comment: Maxim men Type: BLOOD SPECIMENOrdering Facility: [facility] Address: [address] [place] [address] Performed By: #### 2 4323-8, 30085-6 ####[facility] LABIA [id number] [place] [address] [place] Cholesterol non HDL [Mass/Vol] 97 mg/dL Normal <130 [facility] Comment on above: Order Comment: Trevori men Type: BLOOD SPECIMENOrdering Facility: [facility] Address: [address] [place] [address] Result Comment: <130 mg/dL, Optimal 130-159 mg/dL, Near optimal/above optimal 160-189 mg/dL, Borderline high 190-219 mg/dL, High >219 mg/dL, Very high Secondary prevention optimal non HDL Cholesterol levels are recommended to be <100 mg/dL Performed By: #### 2 4323-8, 84395-7 ####[facility] LABCLIA [id number] [address] [place] Cholesterol.total/Antonia sterol in HDL [Mass ratio] 3.85 {ratio} Normal <5.10 [facility] Comment on above: Order Comment: Speci men Type: BLOOD SPECIMENOrdering Facility: [facility] Address: [address] [place] [address] Performed By: #### 2 4323-8, 42241-0 ####[facility] LABIA [id number] [address] FASTING TIME 14 hrs Normal [facility] Comment on above: Order Comment: Speci men Type: BLOOD SPECIMENOrdering Facility: [facility] Address: [address] [place] [address] Performed By: #### 2 4323-8, 59228-9 ####[facility] LABIA [id number] [address] [place] Triglyceride [Mass/Vol] 146 mg/dL Normal <150 [facility] Comment on above: Order Comment: Speci men Type: BLOOD SPECIMENOrdering Facility: [facility] Address: [address] [place] [address] Result Comment: <150 mg/dL, Normal 150-199 mg/dL, Borderline high 200-499 mg/dL, High >499 mg/dL, Very high Performed By: #### 2 4323-8, 53535-7 ####[facility] LABIA [id number] [address] [place] CNOVon 04-10-2024 CNOV Office Visit (FAMPWS ) ROSA MYERS ([id number]) 1950 F Date Time Provider Department 04/10/24 6:00 PM AMADO JAMES During your visit today, we [...] taking ASA 81 mg daily. Follows with [facility]; had recent echo showing no change [...] 1 capsule by mouth once daily. Insulin [place], Disposable, (RELION PEN NEEDLES) 32 x 5/32 " ndle Use a (more content not included)... [facility] ROS[facility] MY[facility] ([id number]) 1950 F Date Time Provider Department 04/04/24 [facility] your visit today, we recorded [...] capsule by mouth once daily. 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) [Z79.4] 10/15/2023 Heart failure, unspecified ([facility]) [I50.9] 04/15/2023 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*04/15/2023 Encounter Status:Closed by CHA TAVERAS on 04/04/24 Normal [facility] Basophil percentageOrdered B y: Caremla Funk on 06-25-2023 Chloride [Moles/Vol] 106 mmol/L 98-107 [facility] Glucose [Mass/Vol] 119 mg/dL 74-106 [facility] Comment on above: Fasting Glucose resu lt from 100 to 125 mg/dL suggests IMPAIRED HOMEOSTASIS per A.D.A. criteria. Potassium [Moles/Vol] 3.7 mmol/L 3.5-5.1 [facility] Sodium [Moles/Vol] 139 mmol/L 136-145 [facility] Laboratory - Chemistry and C hemistry - challengeOrdered By: Carmela Funk on 06-25-2023 CO2 [Moles/Vol] 29.0 mmol/L 21.0-32.0 [facility] Urea nitrogen/Creatinine [Mass ratio] 17.5 mg/mg 10- [facility] No Panel InformationOrdered By: Carmela Funk on 06-25-2023 Estimated GFR (MDRD) Amer 31 mL/min >60 [facility] Comment on above: GFR Calc Estimated GFR (MDRD) Non-Af Amer 26 mL/min >60 [facility] Comment on above: Non- GFR Calc Serum or plasma calcium kayleigh urement (mass/volume)Ordered By: Carmela Funk on 06-25-2023 Calcium [Mass/Vol] 9.0 mg/dL 8.5-10.1 [facility] Serum or plasma creatinine m easurement (mass/volume)Ordered By: Carmela Funk on 06-25-2023 Creatinine [Mass/Vol] 2.00 mg/dL 0.55-1.02 [facility] Comment on above: The validity of the calculated GFR & GFRAA in patients over 70 years has not been determined. Clinical correlation is essential. Serum or plasma urea nitroge n measurement (mass/volume)Ordered By: Carmela Funk on 06-25-2023 Urea nitrogen [Mass/Vol] 35 mg/dL 7-18 [facility] Thin prep Papanicolaou smear with manual screeningOrdered By: Carmela Funk on 06-25-2023 Thin prep Papanicolaou smear with manual screening 4 5-15 [facility] Absolute lymphocyte countOrd ered By: Carmela Funk on 06-17-2023 Lymphocytes Auto (Unsp spec) [#/Vol] 1.21 10*3/uL 0.83-4.51 [facility] Basophil percentageOrdered B y: Carmela Funk on 06-17-2023 Basophils/100 WBC (Bld) 1.1 % 0-1 [facility] Chloride [Moles/Vol] 106 mmol/L 98-107 [facility] Eosinophils/100 WBC (Bld) 1.8 % 0-5 [facility] Glucose [Mass/Vol] 108 mg/dL 74-106 [facility] Comment on above: Fasting Glucose resu lt from 100 to 125 mg/dL suggests IMPAIRED HOMEOSTASIS per A.D.A. criteria. Neutrophils (Bld) [#/Vol] 3.5 10*3/uL 2.0-7.7 [facility] Neutrophils/100 WBC (Bld) 63.6 % 47-70 [facility] Potassium [Moles/Vol] 4.2 mmol/L 3.5-5.1 [facility] Sodium [Moles/Vol] 140 mmol/L 136-145 [facility] WBC (Bld) [#/Vol] 5.5 10*3/uL 4.4-11.0 [facility] Blood erythrocytes count (nu mber/volume)Ordered By: Carmela Funk on 06-17-2023 RBC (Bld) [#/Vol] 3.70 10*6/uL 4.2-5.4 [facility] Blood hemoglobin measurement (mass/volume)Ordered By: Carmela Funk on 06-17-2023 Hemoglobin (Bld) [Mass/Vol] 9.7 g/dL 12.0-15.0 [facility] Blood lymphocytes/100 leukoc ytesOrdered By: Carmela Funk on 06-17-2023 Lymphocytes/100 WBC (Bld) 22.1 % 19-41 [facility] Blood monocytes/100 leukocyt esOrdered By: Carmela Funk on 06-17-2023 Monocytes/100 WBC (Bld) 11.2 % 0-10 [facility] [place] Blood platelet mean volumeOr dered By: Carmela Funk on 06-17-2023 Platelet mean volume (Bld) [Entitic vol] 10.6 fL 6.2-12.0 [facility] Determination of erythrocyte mean corpuscular volume (MCV)Ordered By: Carmela Funk on 06-17-2023 MCV (RBC) [Entitic vol] 86.8 fL 81-99 [facility] Hematocrit Auto (Bld) [Volum e fraction]Ordered By: Carmela Funk on 06-17-2023 Hematocrit (Bld) [Volume fraction] 32.1 % 37-47 [facility] Laboratory - Chemistry and C hemistry - challengeOrdered By: Carmela Fukn on 06-17-2023 CO2 [Moles/Vol] 29.0 mmol/L 21.0-32.0 [facility] Natriuretic peptide B (Bld) [Mass/Vol] 281.8 pg/mL 0-100 [facility] Urea nitrogen/Creatinine [Mass ratio] 14.5 mg/mg 10-20 [facility] Laboratory - Hematology and Cell countsOrdered By: Carmela Funk on 06-17-2023 Erythrocyte distribution width (RBC) [Entitic vol] 49.9 fL 35.1-43.9 [facility] Erythrocyte distribution width (RBC) [Ratio] 15.6 % 11.6-14.6 [facility] Immature granulocytes/100 WBC (Bld) 0.200 % 0.0-0.9 [facility] Comment on above: IG% - Immature Granu locytes (promyelocytes, myelocytes and metamyelocytes) > 1% indicates that a LEFT SHIFT is Present. MCH (RBC) [Entitic mass] 26.2 pg 27.0-32.0 [facility] Nucleated RBC/100 WBC (Bld) [Ratio] 0 % 0-5 [facility] MCHC Auto (RBC) [Mass/Vol]Or dered By: Carmela Funk on 06-17-2023 MCHC (RBC) [Mass/Vol] 30.2 g/dL 32-36 [facility] No Panel InformationOrdered By: Carmela Funk on 06-17-2023 Estimated GFR (MDRD) Amer 34 mL/min >60 [facility] Comment on above: GFR Calc Estimated GFR (MDRD) Non-Af Amer 28 mL/min >60 [facility] Comment on above: Non- GFR Calc Thyroid Stimulating Hormone (TSH) 4.15 uIU/mL 0.358-3.74 [facility] Platelets bldOrdered By: Maco Funk on 06-17-2023 Platelets (Bld) [#/Vol] 280 10*3/uL 150-450 [facility] Serum or plasma calcium kayleigh urement (mass/volume)Ordered By: Carmela Funk on 06-17-2023 Calcium [Mass/Vol] 9.0 mg/dL 8.5-10.1 [facility] Serum or plasma creatinine m easurement (mass/volume)Ordered By: Carmela Funk on 06-17-2023 Creatinine [Mass/Vol] 1.86 mg/dL 0.55-1.02 [facility] Comment on above: The validity of the calculated GFR & GFRAA in patients over 70 years has not been determined. Clinical correlation is essential. Serum or plasma urea nitroge n measurement (mass/volume)Ordered By: Carmela Funk on 06-17-2023 Urea nitrogen [Mass/Vol] 27 mg/dL 7-18 [facility] Thin prep Papanicolaou smear with manual screeningOrdered By: Carmela Funk on 06-17-2023 Thin prep Papanicolaou smear with manual screening 5 5-15 [facility] Absolute lymphocyte counton 06-03-2022 Lymphocytes Auto (Unsp spec) [#/Vol] 1.04 10*3/uL 0.83-4.51 [facility] Work Phone: Basophil percentageon 2021 Basophils/100 WBC (Bld) 0.8 % 0-1 [facility] [place] Work Phone: Chloride [Moles/Vol] 108 mmol/L 98-107 [facility] Work Phone: Eosinophils/100 WBC (Bld) 1.1 % 0-5 [facility] Work Phone: Glucose [Mass/Vol] 217 mg/dL 74-106 [facility] Work Phone: Comment on above: Glucose result great er than or equal to 200 mg/dLsuggests DIABETES MELLITUS per A.D.A. criteria. Neutrophils (Bld) [#/Vol] 6.4 10*3/uL 2.0-7.7 [facility] Work Phone: Neutrophils/100 WBC (Bld) 78.2 % 47-70 [facility] Work Phone: Potassium [Moles/Vol] 5.3 mmol/L 3.5-5.1 [facility] Work Phone: Sodium [Moles/Vol] 136 mmol/L 136-145 [facility] Work Phone: WBC (Bld) [#/Vol] 8.2 10*3/uL 4.4-11.0 [facility] Work Phone: Blood erythrocytes count (nu mber/volume)on 06-03-2022 RBC (Bld) [#/Vol] 3.88 10*6/uL 4.2-5.4 [facility] Work Phone: Blood hemoglobin measurement (mass/volume)on 06-03-2022 Hemoglobin (Bld) [Mass/Vol] 9.7 g/dL 12.0-15.0 [facility] Work Phone: Blood lymphocytes/100 leukoc yteson 06-03-2022 Lymphocytes/100 WBC (Bld) 12.6 % 19-41 [facility] Work Phone: Blood monocytes/100 leukocyt eson 06-03-2022 Monocytes/100 WBC (Bld) 6.9 % 0-10 [facility] [place] Work Phone: Blood platelet mean volumeon 06-03-2022 Platelet mean volume (Bld) [Entitic vol] 10.1 fL 6.2-12.0 [facility] Work Phone: Determination of erythrocyte mean corpuscular volume (MCV)on 06-03-2022 MCV (RBC) [Entitic vol] 81.7 fL 81-99 [facility] [place] Work Phone: Hematocrit Auto (Bld) [Volum e fraction]on 06-03-2022 Hematocrit (Bld) [Volume fraction] 31.7 % 37-47 [facility] Work Phone: Laboratory - Chemistry and C hemistry - challengeon 06-03-2022 CO2 [Moles/Vol] 22.0 mmol/L 21.0-32.0 [facility] Work Phone: [phone] Urea nitrogen/Creatinine [Mass ratio] 19.4 mg/mg 10-20 [facility] Work Phone: Laboratory - Hematology and Cell countson 06-03-2022 Erythrocyte distribution width (RBC) [Entitic vol] 49.9 fL 35.1-43.9 [facility] Work Phone: [phone] Erythrocyte distribution width (RBC) [Ratio] 16.7 % 11.6-14.6 [facility] Work Phone: [phone] Immature granulocytes/100 WBC (Bld) 0.400 % 0.0-0.9 [facility] Work Phone: [phone] Comment on above: IG% - Immature Granu locytes (promyelocytes, myelocytes and metamyelocytes) > 1% indicates that a LEFT SHIFT is Present. MCH (RBC) [Entitic mass] 25.0 pg 27.0-32.0 [facility] Work Phone: Nucleated RBC/100 WBC (Bld) [Ratio] 0 % 0-5 [facility] Work Phone: MCHC Auto (RBC) [Mass/Vol]on 06-03-2022 MCHC (RBC) [Mass/Vol] 30.6 g/dL 32-36 [facility] Work Phone: No Panel Informationon 06-03 Estimated GFR (MDRD) Amer 26 mL/min >60 [facility] Work Phone: Comment on above: GFR Calc Estimated GFR (MDRD) Non-Af Amer 21 mL/min >60 [facility] Work Phone: Comment on above: Non- GFR Calc Platelets bldon 06-03-2022 Platelets (Bld) [#/Vol] 231 10*3/uL 150-450 [facility] Work Phone: Serum or plasma calcium kayleigh urement (mass/volume)on 06-03-2022 Calcium [Mass/Vol] 9.0 mg/dL 8.5-10.1 [facility] Work Phone: Serum or plasma creatinine m easurement (mass/volume)on 06-03-2022 Creatinine [Mass/Vol] 2.37 mg/dL 0.55-1.02 [facility] Work Phone: Comment on above: The validity of the calculated GFR & GFRAA in patients over 70 years has not been determined. Clinical correlation is essential. Serum or plasma urea nitroge n measurement (mass/volume)on 06-03-2022 Urea nitrogen [Mass/Vol] 46 mg/dL 7-18 [facility] Work Phone: Thin prep Papanicolaou smear with manual screeningon 06-03-2022 Thin prep Papanicolaou smear with manual screening 6 5-15 [facility] Work Phone: Basophil percentageon 2021 Chloride [Moles/Vol] 103 mmol/L 98-107 [facility] Work Phone: [phone] Glucose [Mass/Vol] 198 mg/dL 74-106 [facility] Work Phone: [phone] Comment on above: Fasting Glucose resu lt greater than or equal to 126 mg/dL suggests DIABETES MELLITUS per A.D.A. criteria. Potassium [Moles/Vol] 4.5 mmol/L 3.5-5.1 [facility]: [phone] Sodium [Moles/Vol] 139 mmol/L 136-145 [facility] Work Phone: [phone] WBC (Bld) [#/Vol] 6.6 10*3/uL 4.4-11.0 [facility] Work Phone: [phone] Blood erythrocytes count (nu mber/volume)on 03-02-2022 RBC (Bld) [#/Vol] 3.28 10*6/uL 4.2-5.4 [facility] Work Phone: [phone] Blood hemoglobin measurement (mass/volume)on 03-02-2022 Hemoglobin (Bld) [Mass/Vol] 8.2 g/dL 12.0-15.0 [facility] Work Phone: [phone] Blood platelet mean volumeon 03-02-2022 Platelet mean volume (Bld) [Entitic vol] 10.8 fL 6.2-12.0 [facility] Work Phone: [phone] Determination of erythrocyte mean corpuscular volume (MCV)on 03-02-2022 MCV (RBC) [Entitic vol] 85.1 fL 81-99 [facility] [place] Work Phone: [phone] Hematocrit Auto (Bld) [Volum e fraction]on 03-02-2022 Hematocrit (Bld) [Volume fraction] 27.9 % 37-47 [facility] Work Phone: [phone] Laboratory - Chemistry and C hemistry - challengeon 03-02-2022 CO2 [Moles/Vol] 30.0 mmol/L 21.0-32.0 [facility] Work Phone: [phone] Urea nitrogen/Creatinine [Mass ratio] 25.0 mg/mg 10-20 [facility] Work Phone: [phone] Laboratory - Hematology and Cell countson 03-02-2022 Erythrocyte distribution width (RBC) [Entitic vol] 49.0 fL 35.1-43.9 [facility] Work Phone: [phone] Erythrocyte distribution width (RBC) [Ratio] 15.8 % 11.6-14.6 [facility] Work Phone: [phone] MCH (RBC) [Entitic mass] 25.0 pg 27.0-32.0 [facility] Work Phone: MCHC Auto (RBC) [Mass/Vol]on 03-02-2022 MCHC (RBC) [Mass/Vol] 29.4 g/dL 32-36 [facility] Work Phone: No Panel Informationon 03-02 Estimated GFR (MDRD) Amer 35 mL/min >60 [facility] Work Phone: Comment on above: GFR Calc Estimated GFR (MDRD) Non-Af Amer 29 mL/min >60 [facility] Work Phone: Comment on above: Non- GFR Calc Platelets bldon 03-02-2022 Platelets (Bld) [#/Vol] 196 10*3/uL 150-450 [facility] Work Phone: Serum or plasma calcium kayleigh urement (mass/volume)on 03-02-2022 Calcium [Mass/Vol] 8.5 mg/dL 8.5-10.1 [facility] Work Phone: [phone] Serum or plasma creatinine m easurement (mass/volume)on 03-02-2022 Creatinine [Mass/Vol] 1.80 mg/dL 0.55-1.02 [facility] Work Phone: Comment on above: The validity of the calculated GFR & GFRAA in patients over 70 years has not been determined. Clinical correlation is essential. Serum or plasma urea nitroge n measurement (mass/volume)on 03-02-2022 Urea nitrogen [Mass/Vol] 45 mg/dL 7-18 [facility] Work Phone: Thin prep Papanicolaou smear with manual screeningon 03-02-2022 Thin prep Papanicolaou smear with manual screening 6 5-15 [facility] Work [phone] Absolute lymphocyte counton 02-26-2022 Lymphocytes Auto (Unsp spec) [#/Vol] 0.89 10*3/uL 0.83-4.51 [facility] Work Phone: Basophil percentageon 2021 Basophils/100 WBC (Bld) 0.7 % 0-1 [facility] [place] Work Phone: Chloride [Moles/Vol] 103 mmol/L 98-107 [facility] Work Phone: Eosinophils/100 WBC (Bld) 1.8 % 0-5 [facility] Work Phone: Glucose [Mass/Vol] 254 mg/dL 74-106 [facility] Work Phone: Comment on above: Glucose result great er than or equal to 200 mg/dLsuggests DIABETES MELLITUS per A.D.A. criteria. Neutrophils (Bld) [#/Vol] 5.6 10*3/uL 2.0-7.7 [facility] Work Phone: Neutrophils/100 WBC (Bld) 75.1 % 47-70 [facility] Work Phone: Potassium [Moles/Vol] 5.1 mmol/L 3.5-5.1 [facility] Work Phone: Sodium [Moles/Vol] 136 mmol/L 136-145 [facility] Work Phone: WBC (Bld) [#/Vol] 7.4 10*3/uL 4.4-11.0 [facility] Work Phone: Blood erythrocytes count (nu mber/volume)on 02-26-2022 RBC (Bld) [#/Vol] 3.31 10*6/uL 4.2-5.4 [facility] Work Phone: Blood hemoglobin measurement (mass/volume)on 02-26-2022 Hemoglobin (Bld) [Mass/Vol] 8.4 g/dL 12.0-15.0 [facility] Work Phone: [phone] Blood lymphocytes/100 leukoc yteson 02-26-2022 Lymphocytes/100 WBC (Bld) 12.0 % 19-41 [facility] Work Phone: [phone] Blood monocytes/100 leukocyt eson 02-26-2022 Monocytes/100 WBC (Bld) 10.0 % 0-10 [facility] [place] Work Phone: [phone] Blood platelet mean volumeon 02-26-2022 Platelet mean volume (Bld) [Entitic vol] 10.8 fL 6.2-12.0 [facility] Work Phone: [phone] Determination of erythrocyte mean corpuscular volume (MCV)on 02-26-2022 MCV (RBC) [Entitic vol] 85.8 fL 81-99 [facility] [place] Work Phone: [phone] Glucose Glucometer (BldC) [M ass/Vol]on 02-26-2022 Glucose [Mass/Vol] 343 mg/dL 74-106 [facility] Work Phone: Comment on above: MANAGEMENT OF PATIEN T CARE PER NURSING PROTOCOL Hematocrit Auto (Bld) [Volum e fraction]on 02-26-2022 Hematocrit (Bld) [Volume fraction] 28.4 % 37-47 [facility] Work Phone: [phone] Laboratory - Chemistry and C hemistry - challengeon 02-26-2022 CO2 [Moles/Vol] 27.0 mmol/L 21.0-32.0 [facility] Work Phone: [phone] Urea nitrogen/Creatinine [Mass ratio] 23.6 mg/mg 10-20 [facility] Work Phone: [phone] Laboratory - Hematology and Cell countson 02-26-2022 Erythrocyte distribution width (RBC) [Entitic vol] 48.4 fL 35.1-43.9 [facility] Work Phone: Erythrocyte distribution width (RBC) [Ratio] 15.5 % 11.6-14.6 [facility] Work Phone: [phone] Immature granulocytes/100 WBC (Bld) 0.400 % 0.0-0.9 [facility] Work Phone: [phone] Comment on above: IG% - Immature Granu locytes (promyelocytes, myelocytes and metamyelocytes) > 1% indicates that a LEFT SHIFT is Present. MCH (RBC) [Entitic mass] 25.4 pg 27.0-32.0 [facility] Work Phone: [phone] Nucleated RBC/100 WBC (Bld) [Ratio] 0 % 0-5 [facility] Work Phone: [phone] MCHC Auto (RBC) [Mass/Vol]on 02-26-2022 MCHC (RBC) [Mass/Vol] 29.6 g/dL 32-36 [facility] Work Phone: No Panel Informationon 02-26 Estimated Creatinine Clearance Calc 19.35 ml/min [facility] Work Phone: [phone] Estimated GFR (MDRD) Amer 26 mL/min >60 [facility] Work Phone: [phone] Comment on above: GFR Calc Estimated GFR (MDRD) Non-Af Amer 22 mL/min >60 [facility] Work Phone: [phone] Comment on above: Non- GFR Calc Platelets bldon 02-26-2022 Platelets (Bld) [#/Vol] 219 10*3/uL 150-450 [facility] Work Phone: [phone] Serum or plasma calcium kayleigh urement (mass/volume)on 02-26-2022 Calcium [Mass/Vol] 8.5 mg/dL 8.5-10.1 [facility] Work Phone: [phone] Serum or plasma creatinine m easurement (mass/volume)on 02-26-2022 Creatinine [Mass/Vol] 2.33 mg/dL 0.55-1.02 [facility] Work Phone: [phone] Comment on above: The validity of the calculated GFR & GFRAA in patients over 70 years has not been determined. Clinical correlation is essential. Serum or plasma urea nitroge n measurement (mass/volume)on 02-26-2022 Urea nitrogen [Mass/Vol] 55 mg/dL 7-18 [facility] Work Phone: Thin prep Papanicolaou smear with manual screeningon 02-26-2022 Thin prep Papanicolaou smear with manual screening 6 5-15 [facility] Work Phone: [phone] Basophil percentageon 2021 Basophil percentage 4.5 mg/dL 2.5-4.9 [facility] Work Phone: [phone] Laboratory - Chemistry and C hemistry - challengeon 02-25-2022 Magnesium [Mass/Vol] 2.7 mg/dL 1.6-2.6 [facility] Work Phone: [phone] Basophil percentageon 2021 Bilirubin [Mass/Vol] 1.00 mg/dL 0.20-1.00 [facility] Work Phone: [phone] Comment on above: For patients on eltr ombopag therapy, use of Dimension [facility] TBIL is not recommended. Protein [Mass/Vol] 6.1 g/dL 6.4-8.2 [facility] Work Phone: [phone] Laboratory - Chemistry and C hemistry - challengeon 02-24-2022 ALP [Catalytic activity/Vol] 66 U/L 45-117 [facility] Work Phone: [phone] ALT [Catalytic activity/Vol] 15 U/L 13-56 [facility] Work Phone: [phone] Globulin (S) [Mass/Vol] 3.3 g/dL 2.2-4.2 [facility] [place] Work Phone: [phone] Serum or plasma albumin kayleigh urement (mass/volume)on 02-24-2022 Albumin [Mass/Vol] 2.8 g/dL 3.2-5.0 [facility] Work Phone: [phone] Serum or plasma albumin/glob ulin mass ratioon 02-24-2022 Albumin/Globulin [Mass ratio] 0.8 {ratio} 0.9-2.4 [facility] Work Phone: Thin prep Papanicolaou smear with manual screeningon 02-24-2022 Thin prep Papanicolaou smear with manual screening 11 U/L 15-37 [facility] Work Phone: INR in Blood by Coagulation assayon 02-23-2022 INR Coag (Bld) [Relative time] 1.3 {INR} [facility] Work Phone: Laboratory - Coagulationon 0 02-23-2022 PT Coag (PPP) [Time] 16.1 s 11.7-14.9 [facility] Work Phone: Absolute lymphocyte counton 02-22-2022 Lymphocytes Auto (Unsp spec) [#/Vol] 1.12 10*3/uL 0.83-4.51 [facility] Work Phone: Basophil percentageon 2021 Basophils/100 WBC (Bld) 0.7 % 0-1 [facility] [place] Work Phone: Chloride [Moles/Vol] 107 mmol/L 98-107 [facility] Work Phone: Eosinophils/100 WBC (Bld) 1.6 % 0-5 [facility] Work Phone: Glucose [Mass/Vol] 371 mg/dL 74-106 [facility] Work Phone: Comment on above: Glucose result great er than or equal to 200 mg/dLsuggests DIABETES MELLITUS per A.D.A. criteria. Neutrophils (Bld) [#/Vol] 6.4 10*3/uL 2.0-7.7 [facility] Work Phone: Neutrophils/100 WBC (Bld) 75.1 % 47-70 [facility] Work Phone: Potassium [Moles/Vol] 4.7 mmol/L 3.5-5.1 [facility] Work Phone: Sodium [Moles/Vol] 139 mmol/L 136-145 [facility] Work Phone: [phone] WBC (Bld) [#/Vol] 8.5 10*3/uL 4.4-11.0 [facility] Work Phone: [phone] Blood erythrocytes count (nu mber/volume)on 02-22-2022 RBC (Bld) [#/Vol] 3.16 10*6/uL 4.2-5.4 [facility] Work Phone: [phone] Blood hemoglobin measurement (mass/volume)on 02-22-2022 Hemoglobin (Bld) [Mass/Vol] 7.7 g/dL 12.0-15.0 [facility] Work Phone: [phone] Blood lymphocytes/100 leukoc yteson 02-22-2022 Lymphocytes/100 WBC (Bld) 13.2 % 19-41 [facility] Work Phone: [phone] Blood monocytes/100 leukocyt eson 02-22-2022 Monocytes/100 WBC (Bld) 8.6 % 0-10 [facility] [place] Work Phone: [phone] Blood platelet mean volumeon 02-22-2022 Platelet mean volume (Bld) [Entitic vol] 10.5 fL 6.2-12.0 [facility] Work Phone: Determination of erythrocyte mean corpuscular volume (MCV)on 02-22-2022 MCV (RBC) [Entitic vol] 85.4 fL 81-99 [facility] [place] Work Phone: [phone] Hematocrit Auto (Bld) [Volum e fraction]on 02-22-2022 Hematocrit (Bld) [Volume fraction] 27.0 % 37-47 [facility] Work Phone: [phone] Laboratory - Chemistry and C hemistry - challengeon 02-22-2022 CO2 [Moles/Vol] 21.0 mmol/L 21.0-32.0 [facility] Work Phone: Natriuretic peptide B (Bld) [Mass/Vol] 595.4 pg/mL 0-100 [facility] Work Phone: [phone] Urea nitrogen/Creatinine [Mass ratio] 15.5 mg/mg 10-20 [facility] Work Phone: [phone] Laboratory - Hematology and Cell countson 02-22-2022 Erythrocyte distribution width (RBC) [Entitic vol] 46.9 fL 35.1-43.9 [facility] Work Phone: [phone] Erythrocyte distribution width (RBC) [Ratio] 15.2 % 11.6-14.6 [facility] Work Phone: [phone] Immature granulocytes/100 WBC (Bld) 0.800 % 0.0-0.9 [facility] Work Phone: [phone] Comment on above: IG% - Immature Granu locytes (promyelocytes, myelocytes and metamyelocytes) > 1% indicates that a LEFT SHIFT is Present. MCH (RBC) [Entitic mass] 24.4 pg 27.0-32.0 [facility] Work Phone: [phone] Nucleated RBC/100 WBC (Bld) [Ratio] 0 % 0-5 [facility] Work Phone: [phone] Lower GI hemoglobin IA Ql (S tl)on 02-22-2022 Stool Occult Blood (TREVOR) Positive [facility] Work Phone: [phone] MCHC Auto (RBC) [Mass/Vol]on 02-22-2022 MCHC (RBC) [Mass/Vol] 28.5 g/dL 32-36 [facility] Work Phone: [phone] No Panel Informationon 02-22 Troponin I High Sensitivity 64 pg/mL 3.0-54.0 [facility] Work Phone: [phone] Comment on above: Please Note: New Yvrose t Units and Gender Specific Reference Ranges. For more information see Policy Stat Procedure [facility] High Sensitivity Troponin (TNIH) and attachments. SARS-CoV-2 & FLU Antigen (Rapid) [facility] Work Phone: [phone] D-Dimer Quantitative (PE/DVT) 0.83 FEU/ug/m 0.27-0.49 [facility] Work Phone: [phone] Comment on above: D-Dimer ELEVATED (>0 .49): Additional studies and clinicalassessments are indicated to conclude diagnosis of:Deep Vein Thrombosis (DVT) or Pulmonary Embolism (PE)CRITICAL VALUE VERIFIED. CALLED TO LOUIS SANCHEZ02/22/22 0905 Kylie Fernandez.RESULTS READ BACK BY SAME . Estimated Creatinine Clearance Calc 23.24 ml/min [facility] Work Phone: Estimated GFR (MDRD) Amer 32 mL/min >60 [facility] Work Phone: Comment on above: GFR Calc Estimated GFR (MDRD) Non-Af Amer 27 mL/min >60 [facility] Work Phone: Comment on above: Non- GFR Calc Troponin I High Sensitivity 14 pg/mL 3.0-54.0 [facility] Work Phone: Comment on above: Please Note: New Yvrose t Units and Gender Specific Reference Ranges. For more information see Policy Stat Procedure [facility] High Sensitivity Troponin (TNIH) and attachments. Thyroid Stimulating Hormone (TSH) 5.15 uIU/mL 0.358-3.74 [facility] Work Phone: Platelets bldon 02-22-2022 Platelets (Bld) [#/Vol] 319 10*3/uL 150-450 [facility] Work Phone: Serum or plasma calcium kayleigh urement (mass/volume)on 02-22-2022 Calcium [Mass/Vol] 9.0 mg/dL 8.5-10.1 oste r [facility] Work Phone: [phone] Serum or plasma creatinine m easurement (mass/volume)on 02-22-2022 Creatinine [Mass/Vol] 1.94 mg/dL 0.55-1.02 [facility] Work Phone: Comment on above: The validity of the calculated GFR & GFRAA in patients over 70 years has not been determined. Clinical correlation is essential. Serum or plasma urea nitroge n measurement (mass/volume)on 02-22-2022 Urea nitrogen [Mass/Vol] 30 mg/dL 7-18 [facility] Work Phone: [phone] Thin prep Papanicolaou smear with manual screeningon 02-22-2022 Thin prep Papanicolaou smear with manual screening 11 5-15 [facility] Work Phone: Whole blood hemoglobin A1c/t otal hemoglobin ratio (mass fraction)on 02-22-2022 HbA1c (Bld) [Mass fraction] 8.2 % 3.8-5.6 [facility] Work Phone: Comment on above: Normal < 5.7 % Predi abetic 5.7 - 6.4 % Diabetic >or= 6.5 % Please note range changes. Laboratory - Microbiology an d Antimicrobial susceptibility Bacteria identified Cx Nom (Bld) No growth in 5 days. [facility] Work Phone: Lower GI hemoglobin IA Ql (S tl) Stool Occult Blood (TREVOR) Positive [facility] Work Phone: Vital Signs Date Time Vital Sign Value Performing Clinician Facility 07-06-2025 17:27-0400 Diastolic blood pressure 89 mm[Hg] Leyda Lyon DO Work Phone: [facility] 07-06-2025 17:27-0400 SaO2% (BldA) [Mass fraction] 100 % Leyda Lyon [employer] Work Phone: [facility] 07-06-2025 17:27-0400 Systolic blood pressure 116 mm[Hg] Leyda Lyon DO Work Phone: [facility] 07-06-2025 16:26-0400 Heart rate 70 /min Leyda Lyon DO Work Phone: [facility] 07-06-2025 16:26-0400 Respiratory rate 17 /min Leyda Lyon DO Work Phone: [facility] 07-06-2025 12:00-0400 Body temperature 97.59 [degF] Leyda Sonali DO Work Phone: [employer] 07-05-2025 09:00-0400 Body mass index (BMI) [Ratio] 38.67 kg/m2 Leyda Sonali DO Work Phone: [employer] 07-05-2025 09:00-0400 Body weight 105.4 kg Leyda Sonali DO Work Phone: [facility] 07-05-2025 07:04-0400 Body height 165.1 cm Leyda Lyon DO Work Phone: [facility] 07-04-2025 15:05-0400 Diastolic blood pressure 70 mm[Hg] Ach 1 [facility] 07-04-2025 15:05-0400 Heart rate 63 /min Ach 1 [facility] 07-04-2025 15:05-0400 Respiratory rate 16 /min Ach 1 [facility] 07-04-2025 15:05-0400 SaO2% (BldA) [Mass fraction] 100 % Ach 1 [facility] 07-04-2025 15:05-0400 Systolic blood pressure 129 mm[Hg] Ach 1 [facility] 07-03-2025 22:48-0400 Heart rate 76 /min Gerardo Felder MD Work Phone: [facility] 07-03-2025 22:48-0400 Respiratory rate 16 /min Gerardo Felder MD Work Phone: [facility] 07-03-2025 22:48-0400 SaO2% (BldA) [Mass fraction] 100 % Gerardo Felder MD Work Phone: [facility] 07-03-2025 20:34-0400 Diastolic blood pressure 80 mm[Hg] Gerardo Felder MD Work Phone: [facility] 07-03-2025 20:34-0400 Systolic blood pressure 126 mm[Hg] Gerardo Felder MD Work Phone: [facility] 07-03-2025 13:39-0400 Body height 165.1 cm Gerardo Felder MD Work Phone: [facility] 07-03-2025 13:39-0400 Body mass index (BMI) [Ratio] 39.54 kg/m2 Gerardo Felder MD Work Phone: [facility] 07-03-2025 13:39-0400 Body temperature 98.2 [degF] Gerardo Felder MD Work Phone: [facility] 07-03-2025 13:39-0400 Body weight 107.78 kg Gerardo Felder MD Work Phone: [facility] 07-02-2025 19:00-0400 Diastolic blood pressure 53 mm[Hg] Klever Jessicarakola DO Work Phone: [facility] 07-02-2025 19:00-0400 Heart rate 67 /min Klever Jessicarakola DO Work Phone: [facility] 07-02-2025 19:00-0400 Respiratory rate 19 /min Klever Verokola DO Work Phone: [facility] 07-02-2025 19:00-0400 SaO2% (BldA) [Mass fraction] 100 % Klever Verokola DO Work Phone: [facility] 07-02-2025 19:00-0400 Systolic blood pressure 112 mm[Hg] Klever Verokola DO Work Phone: [facility] 07-02-2025 16:29-0400 Body temperature 97.39 [degF] Klever Verokola DO Work Phone: [facility] 06-21-2025 16:49-0400 Diastolic blood pressure 67 mm[Hg] Omid Orona MD Work Phone: [facility] 06-21-2025 16:49-0400 Heart rate 52 /min Omid Orona MD Work Phone: [facility] 06-21-2025 16:49-0400 SaO2% (BldA) [Mass fraction] 100 % Omid Orona MD Work Phone: [facility] 06-21-2025 16:49-0400 Systolic blood pressure 151 mm[Hg] Omid Orona MD Work Phone: [facility] 06-21-2025 12:52-0400 Respiratory rate 20 /min Omid Orona MD Work Phone: [facility] 06-21-2025 08:18-0400 Body temperature 97.81 [degF] Omid Orona MD Work Phone: [facility] 06-20-2025 11:40-0400 Body height 165.1 cm Omid Orona MD Work Phone: [facility] 06-11-2025 12:00-0400 Body mass index (BMI) [Ratio] 38.12 kg/m2 Omid Orona MD Work Phone: [facility] 06-11-2025 12:00-0400 Body weight 103.9 kg Omid Orona MD Work Phone: [facility] 02-12-2025 08:00-0400 Diastolic blood pressure 40 mm[Hg] Dr. Amado James MD Work Phone: 2(389)769-364527 [address] 02-12-2025 08:00-0400 Heart rate 68 /min Dr. Amado James MD Work Phone: 7(852)521-729427 [address] 02-12-2025 08:00-0400 Inhaled oxygen concentration 35 % Dr. Amado James MD Work Phone: 0(361)849-622327 [address] 02-12-2025 08:00-0400 Respiratory rate 14 /min Dr. Amado James MD Work Phone: 2(663)781-434427 [address] 02-12-2025 08:00-0400 SaO2% (BldA) [Mass fraction] 94 % Dr. Amado James MD Work Phone: 3(522)466-274427 [address] 02-12-2025 08:00-0400 Systolic blood pressure 108 mm[Hg] Dr. Amado James MD Work Phone: 8(601)176-438082 [place] [address] 02-12-2025 06:00-0400 Body temperature 97.6 [degF] Dr. Amado James MD Work Phone: 9(069)170-571427 [address] 02-12-2025 05:53-0400 Body mass index (BMI) [Ratio] 39.5 kg/m2 Dr. Amado James MD Work Phone: 1(731)659-889482 [place] [address] 02-12-2025 05:53-0400 Body weight 107.[address] Amaod James MD Work Phone: 8(569)293-424527 [address] 02-11-2025 13:30-0400 Body height 165.[address] Amado James MD Work Phone: 7(353)742-585713 [place] [address] 02-10-2025 21:00-0400 Inhaled oxygen flow rate 35 L/min Dr. Amado James MD Work Phone: 0(608)881-739413 [place] [address] 02-05-2025 15:16-0400 Body temperature 97.1 [degF] Dr. Amado James MD Work Phone: 8(029)568-537213 [place] [address] 02-05-2025 15:16-0400 Diastolic blood pressure 60 mm[Hg] Dr. Amado James MD Work Phone: 7(140)544-516082 [place] [address] 02-05-2025 15:16-0400 Heart rate 91 /min Dr. Amado James MD Work Phone: 9(336)605-814413 [place] [address] 02-05-2025 15:16-0400 Inhaled oxygen concentration 60 % Dr. Amado James MD Work Phone: 1(051)400-383013 [place] [address] 02-05-2025 15:16-0400 Respiratory rate 29 /min Dr. Amado James MD Work Phone: 2(381)150-108113 [place] [address] 02-05-2025 15:16-0400 SaO2% (BldA) [Mass fraction] 100 % Dr. Amado James MD Work Phone: 0(868)741-644913 [place] [address] 02-05-2025 15:16-0400 Systolic blood pressure 141 mm[Hg] Dr. Amado James MD Work Phone: 0(506)905-357582 [place] [address] 02-05-2025 13:36-0400 Inhaled oxygen flow rate 6 L/min Dr. Amado James MD Work Phone: 6(783)665-711882 [place] [address] 02-05-2025 09:46-0400 Body height 160.[address] Amado James MD Work Phone: 1(019)564-245813 [place] [address] 02-05-2025 09:46-0400 Body mass index (BMI) [Ratio] 20.6 kg/m2 Dr. Amado James MD Work Phone: 9(923)048-325613 [place] [address] 02-05-2025 09:46-0400 Body weight 52.[address] Amado James MD Work Phone: 2(010)904-137982 [place] [address] 01-29-2025 07:34-0400 Body mass index (BMI) [Ratio] 42.1 kg/m2 Dr. Amado James MD Work Phone: 2(489)169-156313 [place] [address] 01-29-2025 07:34-0400 Body weight 118.[address] Amado James MD Work Phone: 6(908)213-543913 [place] [address] 01-29-2025 07:34-0400 Diastolic blood pressure 65 mm[Hg] Dr. Amado James MD Work Phone: 0(459)456-929282 [place] [address] 01-29-2025 07:34-0400 Heart rate 68 /min Dr. Amado James MD Work Phone: 8(924)561-172182 [place] [address] 01-29-2025 07:34-0400 Respiratory rate 18 /min Dr. Amado James MD Work Phone: [facility] 01-29-2025 07:34-0400 SaO2% (BldA) [Mass fraction] 94 % Dr. Amado James MD Work Phone: [facility] 01-29-2025 07:34-0400 Systolic blood pressure 124 mm[Hg] Dr. Amado James MD Work Phone: [facility] 11-27-2024 13:54-0500 Body weight 109.77 kg Rufina Soares [employer] Work Phone: [facility] 11-27-2024 13:54-0500 Diastolic blood pressure 80 mm[Hg] Rufina Soares [employer] Work Phone: [facility] 11-27-2024 13:54-0500 Heart rate 65 /min Rufina Soares [employer] Work Phone: [facility] 11-27-2024 13:54-0500 Respiratory rate 16 /min Rufina Kingf [employer] Work Phone: [facility] 11-27-2024 13:54-0500 SaO2% (BldA) [Mass fraction] 96 % Rufina Soares [employer] Work Phone: [facility] 11-27-2024 13:54-0500 Systolic blood pressure 126 mm[Hg] Rufina Soares [employer] Work Phone: [facility] 11-23-2024 08:50-0500 Body mass index (BMI) [Ratio] 42.7 kg/m2 Dr. Amado James MD Work Phone: 7(618)314-648413 [place] [address] 11-23-2024 08:50-0500 Body temperature 97.9 [degF] Dr. Amado James MD Work Phone: 1(935)826-149313 [place] [address] 11-23-2024 08:50-0500 Diastolic blood pressure 66 mm[Hg] Dr. Amado James MD Work Phone: 2(857)302-835513 [place] [address] 11-23-2024 08:50-0500 Heart rate 76 /min Dr. Amado James MD Work Phone: 0(122)804-148413 [place] [address] 11-23-2024 08:50-0500 Respiratory rate 22 /min Dr. Amado James MD Work Phone: 5(703)371-133413 [place] [address] 11-23-2024 08:50-0500 Systolic blood pressure 144 mm[Hg] Dr. Amado James MD Work Phone: 2(129)927-038913 [place] [address] 10-28-2024 00:57-0500 Body weight 120.[address] Amado James MD Work Phone: 9(744)995-935913 [place] [address] 10-26-2024 08:38-0500 Body mass index (BMI) [Ratio] 42.7 kg/m2 Dr. Amado James MD Work Phone: 4(955)959-472613 [place] [address] 10-26-2024 08:38-0500 Body temperature 97.6 [degF] Dr. Amado James MD Work Phone: 2(588)302-211113 [place] [address] 10-26-2024 08:38-0500 Diastolic blood pressure 50 mm[Hg] Dr. Amado James MD Work Phone: [facility] 10-26-2024 08:38-0500 Heart rate 69 /min Dr. Amado James MD Work Phone: [facility] 10-26-2024 08:38-0500 Respiratory rate 22 /min Dr. Amado James MD Work Phone: [facility] 10-26-2024 08:38-0500 Systolic blood pressure 113 mm[Hg] Dr. Amado James MD Work Phone: [facility] 09-27-2024 00:36-0500 Body weight 120.[address] Amado James MD Work Phone: [facility] 09-26-2024 09:30-0500 Body weight 110.3 kg Amado James MD Work Phone: [facility] 09-26-2024 09:30-0500 Diastolic blood pressure 60 mm[Hg] Amado James MD Work Phone: [facility] 09-26-2024 09:30-0500 Heart rate 76 /min Amado James MD Work Phone: [facility] 09-26-2024 09:30-0500 Respiratory rate 20 /min Amado James MD Work Phone: [facility] 09-26-2024 09:30-0500 Systolic blood pressure 108 mm[Hg] Amado James MD Work Phone: [facility] 08-28-2024 13:35-0500 Body weight 113 kg Rufinasharon Larsonhof [employer] Work Phone: [facility] 08-28-2024 13:35-0500 Diastolic blood pressure 60 mm[Hg] Rufina Tannhof [employer] Work Phone: [facility] 08-28-2024 13:35-0500 Heart rate 70 /min Rufinasharon Larsonhof [employer] Work Phone: [facility] 08-28-2024 13:35-0500 Respiratory rate 16 /min Rufina Soares [employer] Work Phone: [facility] 08-28-2024 13:35-0500 SaO2% (BldA) [Mass fraction] 96 % Rufina Caroline [employer] Work Phone: [facility] 08-28-2024 13:35-0500 Systolic blood pressure 128 mm[Hg] Rufina Soares [employer] Work Phone: [facility] 07-11-2024 16:22-0400 Diastolic blood pressure 80 mm[Hg] Amado James MD Work Phone: [facility] 07-11-2024 16:22-0400 Systolic blood pressure 136 mm[Hg] Amado James MD Work Phone: [facility] 07-11-2024 16:16-0400 Body weight 124.2 kg Amado James MD Work Phone: [facility] 07-11-2024 16:16-0400 Heart rate 76 /min Amado James MD Work Phone: [facility] 07-11-2024 16:16-0400 Respiratory rate 20 /min Amado James MD Work Phone: [facility] 07-11-2024 16:16-0400 SaO2% (BldA) [Mass fraction] 99 % Amado James MD Work Phone: [facility] 05-06-2024 08:43-0400 Body weight 119 kg Amado James MD Work Phone: [facility] 05-06-2024 08:43-0400 Diastolic blood pressure 64 mm[Hg] Amado James MD Work Phone: [facility] 05-06-2024 08:43-0400 Heart rate 68 /min Amado James MD Work Phone: [facility] 05-06-2024 08:43-0400 Respiratory rate 16 /min Amado James MD Work Phone: [facility] 05-06-2024 08:43-0400 SaO2% (BldA) [Mass fraction] 99 % Amado James MD Work Phone: [facility] 05-06-2024 08:43-0400 Systolic blood pressure 97 mm[Hg] Amado James MD Work Phone: [facility] 04-10-2024 18:07-0400 Body weight 120.02 kg Amado James MD Work Phone: [facility] 04-10-2024 18:07-0400 Diastolic blood pressure 80 mm[Hg] Amado James MD Work Phone: [facility] 04-10-2024 18:07-0400 Heart rate 74 /min Amado James MD Work Phone: [facility] 04-10-2024 18:07-0400 Respiratory rate 16 /min Amado James MD Work Phone: [facility] 04-10-2024 18:07-0400 Systolic blood pressure 140 mm[Hg] Amado James MD Work Phone: [facility] 06-17-2023 15:24-0400 Body height 165.[address] Amado James Work Phone: [facility] 06-17-2023 15:24-0400 Body mass index (BMI) [Ratio] 41.9 kg/m2 Dr. Amado James Work Phone: [facility] 06-17-2023 15:24-0400 Body weight 114.[address] Amado James Work Phone: [facility] 06-17-2023 15:24-0400 Diastolic blood pressure 69 mm[Hg] Dr. Amado James Work Phone: [facility] 06-17-2023 15:24-0400 Heart rate 71 /min Dr. Amado James Work Phone: [facility] 06-17-2023 15:24-0400 Respiratory rate 22 /min Dr. Amado James Work Phone: [facility] 06-17-2023 15:24-0400 SaO2% (BldA) [Mass fraction] 94 % Dr. Amado James Work Phone: [facility] 06-17-2023 15:24-0400 Systolic blood pressure 161 mm[Hg] Dr. Amado James Work Phone: [facility] 04-15-2023 15:40-0400 Body weight 116.57 kg Amado James MD Work Phone: [facility] 04-15-2023 15:40-0400 Diastolic blood pressure 70 mm[Hg] Amado James MD Work Phone: [facility] 04-15-2023 15:40-0400 Heart rate 70 /min Amado James MD Work Phone: [facility] 04-15-2023 15:40-0400 Respiratory rate 20 /min Amado James MD Work Phone: [facility] 04-15-2023 15:40-0400 Systolic blood pressure 128 mm[Hg] Amado James MD Work Phone: [facility] 07-13-2022 15:42-0400 Body weight 114.31 kg Amado James MD Work Phone: [facility] 07-13-2022 15:42-0400 Diastolic blood pressure 80 mm[Hg] Amado James MD Work Phone: [facility] 07-13-2022 15:42-0400 Heart rate 64 /min Amado James MD Work Phone: [facility] 07-13-2022 15:42-0400 Respiratory rate 20 /min Amado James MD Work Phone: [facility] 07-13-2022 15:42-0400 Systolic blood pressure 124 mm[Hg] Amado James MD Work Phone: [facility] 06-03-2022 10:21-0400 Diastolic blood pressure 47 mm[Hg] Dr. Amado James Work Phone: [facility] Work Phone: 06-03-2022 10:21-0400 Systolic blood pressure 102 mm[Hg] Dr. Amado James Work Phone: [facility] Work Phone: 06-03-2022 09:06-0400 Body height 165.[address] Amado James Work Phone: [facility] Work Phone: 06-03-2022 09:06-0400 Body mass index (BMI) [Ratio] 42.5 kg/m2 Dr. Amado James Work Phone: [facility] Work Phone: 06-03-2022 09:06-0400 Body weight 116.[address] Amado James Work Phone: [facility] Work Phone: 06-03-2022 09:06-0400 Heart rate 68 /min Dr. Amado James Work Phone: [facility] Work Phone: 06-03-2022 09:06-0400 Respiratory rate 18 /min Dr. Amado James Work Phone: [facility] Work Phone: 06-03-2022 09:06-0400 SaO2% (BldA) [Mass fraction] 96 % Dr. Amado James Work Phone: [facility] Work Phone: 04-07-2022 15:22-0400 Body weight 118.39 kg Amado James MD Work Phone: [facility] 04-07-2022 15:22-0400 Diastolic blood pressure 68 mm[Hg] Amado James MD Work Phone: [facility] 04-07-2022 15:22-0400 Heart rate 78 /min Amado James MD Work Phone: [facility] 04-07-2022 15:22-0400 Respiratory rate 20 /min Amado James MD Work Phone: [facility] 04-07-2022 15:22-0400 Systolic blood pressure 126 mm[Hg] Amado James MD Work Phone: [facility] 02-26-2022 15:19-0400 SaO2% (BldA) [Mass fraction] 94 % Dr. Amado James Work Phone: [facility] Work Phone: 02-26-2022 15:18-0400 Inhaled oxygen flow rate 1 L/min Dr. Amado James Work Phone: [facility] Work Phone: 02-26-2022 15:15-0400 Body temperature 97.6 [degF] Dr. Amado James Work Phone: [facility] Work Phone: 02-26-2022 15:15-0400 Diastolic blood pressure 54 mm[Hg] Dr. Amado James Work Phone: [facility] Work Phone: 02-26-2022 15:15-0400 Heart rate 65 /min Dr. Amado James Work Phone: [facility] Work Phone: 02-26-2022 15:15-0400 Respiratory rate 18 /min Dr. Amado James Work Phone: [facility] Work Phone: 02-26-2022 15:15-0400 Systolic blood pressure 113 mm[Hg] Dr. Amado James Work Phone: [facility] Work Phone: 02-26-2022 14:30-0400 Body height 165.[address] Amado James Work Phone: [facility] Work Phone: 02-26-2022 14:30-0400 Body weight 126.[address] Amado James Work Phone: [facility] Work Phone: 02-23-2022 23:05-0400 Inhaled oxygen concentration 30 % Dr. Amado James Work Phone: [facility] Work Phone: 02-23-2022 05:44-0400 Body mass index (BMI) [Ratio] 46.2 kg/m2 Dr. Amado James Work Phone: [facility] Work Phone: 02-22-2022 12:25-0400 Body temperature 97.2 [degF] Dr. Amado James Work Phone: [facility] Work Phone: 02-22-2022 12:25-0400 Diastolic blood pressure 97 mm[Hg] Dr. Amado James Work Phone: [facility] Work Phone: 02-22-2022 12:25-0400 Heart rate 95 /min Dr. Amado James Work Phone: [facility] Work Phone: 02-22-2022 12:25-0400 Respiratory rate 32 /min Dr. Amado James Work Phone: [facility] Work Phone: 02-22-2022 12:25-0400 SaO2% (BldA) [Mass fraction] 96 % Dr. Amado James Work Phone: [facility] Work Phone: 02-22-2022 12:25-0400 Systolic blood pressure 183 mm[Hg] Dr. Amado James Work Phone: [facility] Work Phone: 02-22-2022 08:18-0400 Body height 166.[address] Amado James Work Phone: [facility] Work Phone: 02-22-2022 08:18-0400 Body mass index (BMI) [Ratio] 47 kg/m2 Dr. Amado James Work Phone: [facility] Work Phone: 02-22-2022 08:18-0400 Body weight 130.[address] Amado James Work Phone: [facility] Work Phone: Encounters Encounter Date Encounter Type Care Provider Facility Start: 07-16-2025 ambulatory [facility] Facility:[facility] Start: 07-04-2025 End: 07-06-2025 Evaluation and management of inpatient [facility] Comment on above: ESRD (end stage jeanne l disease) on dialysis (HCC) (Primary Dx) Start: 07-04-2025 End: 07-04-2025 Subsequent hospital visit by physician Bret Ir Exam Room 1 [facility] Special Procedures Comment on above: Dialysis complicatio n, subsequent encounter Start: 07-04-2025 End: 07-04-2025 ambulatory [facility] Start: 07-03-2025 End: 07-03-2025 Emergency department patient visit Gerardo Felder MD Work Phone: [facility] EMERGENCY DEPT Comment on above: Dialysis complicatio n, subsequent encounter Start: 07-02-2025 End: 07-02-2025 Emergency department patient visit Klever Rand DO Work Phone: [facility] EMERGENCY [facility]PT Comment on above: Dialysis complicatio n, initial encounter (Primary Dx) Start: 06-27-2025 ambulatory [facility] OLS Facility:[facility] Start: 06-01-2025 End: 06-21-2025 Evaluation and management of inpatient Omid Orona MD Work Phone: [facility] Intensive Care Unit ICU 2 Start: 06-01-2025 ambulatory Amado James Facilit y:[facility] Start: 04-05-2025 End: 04-05-2025 ambulatory BISHNU MENDEZ Facility:A Start: 03-22-2025 End: 03-26-2025 ambulatory JAS RAMIREZ MD Facility:A Start: 03-22-2025 End: 03-26-2025 ambulatory JAS RAMIREZ MD Facility:A Start: 03-21-2025 End: 03-21-2025 ambulatory JANAE ZARCO MD Facility:A Start: 03-12-2025 [facility] Start: 03-07-2025 End: 04-18-2025 ambulatory EMERY SAGE MD Facility:A Start: 02-12-[address] Amado mccracken MD Work Phone: [facility] Work Phone: Start: 02-12-2025 Non-patient / Non-visit [facility] Start: 02-11-2025 Non-patient / Non-visit [facility] Mcd[facility] Start: 02-10-2025 Non-patient / Non-visit [facility] Start: 02-09-2025 Non-patient / Non-visit [facility] Start: 02-09-2025 Non-patient / Non-visit Dr. Paris Cardona MD -[facility] Work Phone: Start: 02-09-2025 Non-patient / Non-visit Dr. Jose Hull own [facility] Start: 02-08-2025 Non-patient / Non-visit Dr. Milly Gilbert MD [facility] Start: 02-08-2025 Non-patient / Non-visit Dr. Jose Hull own [facility] Start: 02-08-2025 Non-patient / Non-visit Dr. Zachery Gomez MD -[facility] Work Phone: Start: 02-07-2025 Non-patient / Non-visit Dr. Kalyn Cardona MD [facility] Start: 02-06-2025 ambulatory Harry Stallings Facility:[facility] Start: 02-06-2025 Non-patient / Non-visit Dr. Edison MOLINA -[facility] Start: 02-06-2025 Non-patient / Non-visit Dr. Zachery Gomez MD -[facility] Work Phone: Start: 02-05-2025 Non-patient / Non-visit Dr. Kalyn Cardona MD -[facility] Start: 02-05-2025 Non-patient / Non-visit Dr. Zachery Gomez MD -[facility] Work Phone: Start: 02-05-2025 ambulatory Zachery Gomez Facility: [facility] Start: 02-05-2025 End: 03-07-2025 Evaluation and management of inpatient Dr. Zachery Gomez MD -Intensive Care Unit Work Phone: Start: 01-29-2025 End: 01-29-[address] Amado James MD Work Phone: [facility] Work Phone: Start: 01-29-2025 End: 01-29-2025 Patient encounter procedure Janusz Reaves PA -Laboratory Work Phone: Start: 01-29-2025 End: 01-29-2025 Patient encounter procedure Janusz Reaves [place] -[facility] Work Phone: Start: 01-29-2025 End: 01-29-2025 ambulatory Amado James Facility:[facility] Start: 01-29-2025 End: 01-29-2025 ambulatory Janusz Reaves Facility:[facility] Start: 12-19-2024 End: 02-18-2025 Follow-up encounter Amado James MD Work Phone: [facility] Start: 12-18-2024 End: 12-18-2024 ambulatory AMADO JAMES Facility:[facility] Start: 11-27-2024 End: 11-27-2024 Office outpatient visit 25 minutes Rufina Soares APRN.CNP Work Phone: [facility] Comment on above: Type 2 diabetes linda itus with chronic kidney disease, with long-term current use of insulin, unspecified CKD stage (HCC) (Primary Dx); Essential hypertension, benign; Hyperlipidemia, unspecified hyperlipidemia type; Chronic kidney disease, stage 4 (severe) (HCC) Start: 11-27-2024 End: 11-27-2024 ambulatory RUFINA SOARES Facility:[facility] Start: 11-23-2024 End: 11-24-2024 ambulatory Leyda Erwin Facility:[facility] Start: 11-23-2024 End: 11-24-2024 Discharged Recurring Leyda Erwin DPM -Wound Healing [address] [facility] Work Phone: Start: 11-14-2024 End: 11-14-2024 Telephone encounter Amado James MD Work Phone: [facility] [place] Comment on above: POC update Start: 11-08-2024 End: 11-08-2024 Refill Amado James MD Work Phone: [address] [place] [address] Comment on above: Refill Request Start: 10-26-2024 End: 10-27-2024 ambulatory Amado James Facility:[facility] Start: 10-26-2024 End: 10-27-2024 Discharged Recurring Leyda Erwin DPM -Wound Healing [address] [facility] Work Phone: Start: 10-20-2024 End: 10-20-2024 Telephone encounter Amado James MD Work Phone: [facility] [place] Comment on above: Clinical Update (re- cert for hh) Start: 10-06-2024 End: 10-09-2024 ambulatory [facility] [place] Start: 10-06-2024 End: 10-09-2024 Patient encounter procedure Jessica Mckinnon MA [facility] [place] Comment on above: Population Health Na vigation Outreach (Nadeen Avalos [facility]) Start: 09-29-2024 End: 09-29-2024 Telephone encounter Amado James MD Work Phone: [facility] Comment on above: Patient Update Start: 09-26-2024 End: 09-26-2024 ambulatory AMADO JAMES Facility:[facility] Start: 09-26-2024 End: 09-26-2024 Patient encounter procedure Amado James MD Work Phone: [facility] Comment on above: Type 2 [...] Telephone encounter Amado James MD Work Phone: [facility] Comment on above: Long Term Cont inued Plan of Care Start: 09-14-2024 End: 09-26-2024 ambulatory [facility] Facility:[facility] Start: 09-11-2024 End: 09-13-2024 Telephone encounter Amado James MD Work Phone: [facility] [place] Comment on above: Patient Update (Bloo d Sugars) Start: 09-08-2024 End: 09-08-2024 Telephone encounter Amado James MD Work Phone: [facility] [place] Comment on above: Orders (HH visit) Start: 09-04-2024 End: 09-04-2024 Telephone encounter Amado James MD Work Phone: [facility] Comment on above: Orders Start: 09-01-2024 End: 09-04-2024 Telephone encounter Rufina Soares APRN.CNP Work Phone: [facility] Start: 08-31-2024 End: 08-31-2024 ambulatory AMADO JAMES Facility:[facility] Start: 08-30-2024 End: 08-31-2024 Telephone encounter Amado James MD Work Phone: [facility] Comment on above: OT plan of care Start: 08-29-2024 End: 08-29-2024 Telephone encounter Amado James MD Work Phone: [facility] Comment on above: Physical Therapy Kathy n of Care Start: 08-28-2024 End: 08-28-2024 Patient encounter procedure Rufina Soares SOCK LINING STITCHER.BELLMAN Work Phone: [facility] Comment on above: Hospital discharge f ollow-up (Primary Dx); Type 2 diabetes mellitus with hypoglycaemia without coma (HCC); CKD (chronic kidney disease) stage 4, GFR 15-29 ml/min (HCC); Chronic anemia; Chronic heart failure with preserved ejection fraction (HCC) Start: 08-28-2024 End: 08-28-2024 ambulatory RUFINA SOARES Facility:[facility] Start: 08-25-2024 End: 08-25-2024 Patient Outreach Mariza Graham MA [facility] Comment on above: Transition Of Care Start: 08-22-2024 End: 08-22-2024 Telephone encounter Amado James MD Work Phone: [facility] [place] Comment on above: verbal orders Start: 08-21-2024 ambulatory Eduardo Figueroa Facility:[facility] Start: 08-19-2024 ambulatory Oscar Poole Facili ty:[facility] Start: 08-19-2024 End: 08-22-2024 Evaluation and management of inpatient Ana Laura Hastings Facility:[facility] Start: 08-18-2024 End: 08-18-2024 Telephone encounter Amado James MD Work Phone: [facility] [place] Comment on above: home health calling Start: 08-17-2024 End: 08-26-2024 ambulatory Amado James Facility:[facility] Start: 08-16-2024 End: 08-16-2024 ambulatory Miguel SHEPPARD Facility:[facility] Start: 08-11-2024 [facility] Start: 08-04-2024 ambulatory Tiffany SHEPPARD Facili ty:[facility] Start: 07-27-2024 End: 07-27-2024 [facility] Start: 07-13-2024 End: 07-13-2024 Telephone encounter Amado James MD Work Phone: [facility] [place] Comment on above: Medication Problem Start: 07-12-2024 End: 07-12-2024 Refill Amado James MD Work Phone: [facility] [place] Comment on above: Refill Request Start: 07-11-2024 End: 07-11-2024 ambulatory AMADO JAMES Facility:[facility] Start: 07-11-2024 End: 07-11-2024 Patient encounter procedure Amado James MD Work Phone: [facility] [place] Comment on above: Encounter for annual wellness exam in Medicare patient (Primary Dx); Type 2 diabetes mellitus with chronic kidney disease, with long-term current use of insulin, unspecified CKD stage (HCC); Essential hypertension, benign; Hyperlipidemia, unspecified hyperlipidemia type; Chronic kidney disease, stage 4 (severe) ([facility]); Heart failure, unspecified HF chronicity, unspecified heart failure type (HCC); Bilateral leg edema; Diabetic ulcer of right midfoot associated with type 2 diabetes mellitus, unspecified ulcer stage ([facility]); Other depression; Anemia, unspecified type; Morbid obesity with body mass index of 40.0-44.9 in adult ([facility]) Start: 06-16-2024 End: 06-16-2024 Telephone encounter Amado James MD Work Phone: [facility] [place] Comment on above: Fax Last OV Note Start: 06-06-2024 End: 06-06-2024 Refill Amado James MD Work Phone: [facility] [place] Comment on above: Refill Request Start: 06-05-2024 End: 06-05-2024 Telephone encounter Amado James MD Work Phone: [facility] [place] Comment on above: Opened In Error Start: 06-02-2024 End: 06-02-2024 Telephone encounter Amado James MD Work Phone: [facility] [place] Comment on above: Fax Request Start: 05-06-2024 End: 05-06-2024 ambulatory AMADO JAMES Facility:[facility] Start: 05-06-2024 End: 05-06-2024 Patient encounter procedure Amado James MD Work Phone: [facility] Comment on above: 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 2 diabetes mellitus, unspecified ulcer stage (HCC) (Primary Dx); Morbid obesity with body mass index of 40.0-44.9 in adult (HCC); Essential hypertension, benign; Type 2 diabetes mellitus with chronic kidney disease, with long-term current use of insulin, unspecified CKD stage (HCC) Start: 05-03-2024 ambulatory Jessica Mckinnon MA Na v[facility] [place] Start: 05-03-2024 Patient encounter procedure Jessica Mckinnon MA [employer] [facility] Comment on above: Population Health Na vigation Outreach (Nadeen Figueroa [place] [facility]) Start: 04-18-2024 Telephone encounter Amado auguste MD Work Phone: [facility] Comment on above: Results Start: 04-15-2024 End: 04-15-2024 ambulatory AMADO JAMES Facility:[facility] Start: 04-10-2024 End: 04-10-2024 ambulatory AMADO Olvera [facility] Facility:[facility] Start: 04-10-2024 End: 04-10-2024 Patient encounter procedure [facility] Comment on above: Hyperlipidemia, unsp ecified hyperlipidemia [...] Other depression Start: 04-04-2024 Telephone encounter Maciel todd APRN.CNP Work Phone: [facility] [place] Comment on above: Appointment Start: 02-28-2024 ambulatory Jessica Mckinnon MA Na [facility] [place] Start: 02-28-2024 Patient encounter procedure Jessica Mckinnon MA [employer] [facility] [place] Comment on above: Population Health Na vigation Outreach (Nadeen [facility] 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 - AWV, Care gaps, HCC gap closure - [place] [facility]) Start: 02-22-2024 Refill Amado zayas MD Work Phone: Family [facility] [place] Comment on above: Refill Request Start: 01-20-2024 Refill Amado zayas MD Work Phone: Family [facility] [place] Comment on above: Refill Request Start: 01-18-2024 ambulatory Jessica Valdez [facility] [place] Start: 01-18-2024 Patient encounter procedure Jessica Valdez Pratibha TIJERINA [facility] [place] Comment on above: Population Health Na vigation Outreach (Nadeen TIJERINA [employer] workbench - AWV, Care gaps, HCC gap closure - [place] [facility]) Start: 01-13-2024 Refill Amado zayas MD Work Phone: Family [facility] Comment on above: Refill Request Start: 12-02-2023 Refill Amado zayas MD Work Phone: Family [facility] [place] Comment on above: Refill Request Start: 11-26-2023 ambulatory Amado zayas MD Work Phone: [facility] Comment on above: Allied Health Visit (Medication Adherence Outreach ) Start: 06-25-2023 End: 06-25-[address] Amado James Work Phone: [facility] Work Phone: Start: 06-25-2023 End: 06-25-[address] Amado James Work Phone: [facility]-Laboratory Work Phone: Start: 06-21-2023 Telephone encounter Maciel todd APRN.BELLMAN Work Phone: [facility] Comment on above: Results Start: 06-17-2023 End: 06-17-[address] Amado James Work Phone: [facility] Work Phone: Start: 06-17-2023 End: 06-17-[address] Amado James Work Phone: [facility] Work Phone: Start: 06-14-2023 Refill Amado zayas MD Work Phone: Family [facility] [place] Comment on above: Refill Request Start: 04-15-2023 End: 04-15-2023 Patient encounter procedure Amado James MD [facility] Comment on above: 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, without long-term current use of insulin (HCC) (Primary Dx); Essential hypertension, benign; Hyperlipidemia, unspecified hyperlipidemia type; Chronic kidney disease, stage 4 (severe) (HCC); Congestive heart failure, unspecified HF chronicity, unspecified heart failure type (HCC); Bilateral leg edema; H/O: GI bleed; Anemia, unspecified type; Skin lesion; Morbid obesity with body mass index of 40.0-44.9 in adult ([facility]) Start: 02-24-2023 ambulatory Amado zayas MD Work Phone: [facility] [place] Start: 01-25-2023 ambulatory Samia Hickman [employer] Comment on above: Population Health Na vigation Outreach ([place] Care Gap) Start: 01-18-2023 Telephone encounter Amado auguste MD Work Phone: Family [facility] Comment on above: Medication Problem Start: 12-23-2022 ambulatory Amado zayas MD Work Phone: [facility] Comment on above: Allied Health Visit (Medication Adherence Outreach/) Start: 12-14-2022 Refill Amado zayas MD Work Phone: Family [facility] [place] Comment on above: Refill Request Start: 10-30-2022 Telephone encounter Amado auguste MD [facility] Comment on above: Medication Problem Start: 07-15-2022 Refill Amado zayas MD Work Phone: [facility] Comment on above: Refill Request Start: 07-14-2022 Refill Amado zayas MD Work Phone: [facility] Comment on above: Refill Request Start: 07-13-2022 End: 07-13-2022 Patient encounter procedure Amado James MD Work Phone: [facility] Comment on above: Controlled [...] / Non-visit Dr. Breezy James Work Phone: [facility] Start: 06-17-2022 End: 06-17-[address] Amado James Work Phone: [facility] Work Phone: Start: 06-17-2022 End: 06-17-[address] Amado James Work Phone: [facility]-Cardiovascula r Services Start: 06-03-2022 End: 06-03-[address] Amado James Work Phone: [facility] Work Phone: Start: 06-03-2022 End: 06-03-[address] Amado James Work Phone: [facility] Start: 04-07-2022 End: 04-07-2022 Patient encounter procedure Amado James MD Work Phone: [facility] Comment on above: Controlled [...] H/O: GI bleed Start: 03-16-2022 ambulatory Samia Darrick Soriatanmay C [employer] Comment on above: Population Health Na vigation Outreach ([place] Care Gap) Start: 03-04-2022 ambulatory Amado zayas MD Work Phone: [facility] [place] Start: 03-02-2022 End: 03-02-[address] Amado James Work Phone: [facility] Start: 02-26-2022 Non-patient / Non-visit Dr. Breezy James Work Phone: [facility] Inpatient Physicians Start: 02-25-2022 Non-patient / Non-visit Dr. Breezy James Work Phone: [facility] Start: 02-25-2022 Non-patient / Non-visit Dr. Breezy James Work Phone: [facility] Start: 02-24-2022 Non-patient / Non-visit Dr. Breezy James Work Phone: [facility] Start: 02-23-2022 Non-patient / Non-visit Dr. Breezy James Work Phone: [facility] Start: 02-23-2022 Non-patient / Non-visit Dr. Breezy James Work Phone: [facility] Start: 02-22-2022 Non-patient / Non-visit Dr. Breezy James Work Phone: [facility] Start: 02-22-2022 End: 02-26-2022 Evaluation and management of inpatient Dr. Amado James Work Phone: [facility]-Progressive Care Unit Start: 02-22-2022 Non-patient / Non-visit Dr. Breezy James Work Phone: [facility] Procedures Date Procedure Procedure Detail Performing Clinician Start: 07-06-2025 Radiologic exam chest single view Santos Robntire DO Work Phone: Start: 07-06-2025 Blood count complete automated Santos Toney Intleeann DO Work Phone: Start: 07-06-2025 Renal function panel James Emanuel DO Work Phone: Start: 07-05-2025 Glucose quantitative blood xcpt reagent strip Santos Robntire DO Work Phone: Start: 07-05-2025 Glucose quantitative blood xcpt reagent strip Santos Robntire DO Work Phone: Start: 07-05-2025 Glucose quantitative blood xcpt reagent strip Santos Robntire DO Work Phone: Start: 07-05-2025 Iaad ia clostridium difficile toxin Santos Youssefire DO Work Phone: Start: 07-05-2025 Inf agent det nucleic acid clostridium amp probe Santos Youssefire DO Work Phone: Start: 07-05-2025 Glucose quantitative blood xcpt reagent strip Santos Robntire DO Work Phone: Start: 07-05-2025 Comprehensive metabolic panel Peter mcgowan [employer] Work Phone: Start: 07-04-2025 Glucose quantitative blood [...] Phone: Start: 07-03-2025 Comprehensive metabolic panel Armando Garrett Laurel garrick DO Work Phone: Start: 07-03-2025 Ecg routine [...] 06-19-2025 Glucose quantitative blood xcpt reagent strip Sharny Amaya MD Work Phone: Start: 06-19-2025 Glucose [...] Glucose quantitative blood xcpt reagent strip Robert Jimeenz MD Work Phone: Start: 06-15-2025 Glucose quantitative [...] Assay of thyroid stimulating hormone tsh Diana Zabala [employer] Work Phone: Start: 06-14-2025 Ecg routine ecg w/least 12 lds trcg only w/o i&r Diana Zabala [employer] Work Phone: Start: 06-14-2025 IR CVC TUNNELED [...] IR CVC TUNNELED DIALYSIS CATHETER PLACEMENT Mi Packmatthewjackie SOCK LINING STITCHER - BELLMAN Work Phone: Start: 06-12-2025 End: 06-12-2025 Comprehensive metabolic panel Geno Waddell MD Work Phone: Start: 06-12-2025 Glucose quantitative blood xcpt reagent strip Raine Etienne MD Work Phone: Start: 06-11-2025 Glucose quantitative blood xcpt reagent strip Raine Etienne MD Work Phone: Start: 06-11-2025 Glucose quantitative blood xcpt reagent strip Ranie Etienne MD Work Phone: Start: 06-11-2025 Glucose [...] FELDER Comment on above: Performed By: #### [id number] ####Medical Di jennifer: NATALIE GARCIA ([id number])[facility] ([facility])[address] [place] [address] Start: 06-10-2025 Blood typing serologic abo Tomy [...] Work Phone: Start: 06-08-2025 Hemodialysis Mi Singh APRN - [facility] Work Phone: Start: 06-08-2025 Insj non-tunneled central venous cath age 3 yr/> Carmela Francois DO Work Phone: Start: 06-08-2025 Radiologic exam chest single view Carmela Francois DO Work Phone: Start: 06-08-2025 Glucose quantitative [...] prim src gram/giemsa stain bct fungi/cell Neelima Hanks [employer] Work Phone: Start: 06-06-2025 Glucose quantitative blood [...] FELDER Comment on above: Performed By: #### [id number] ####Medical Di jennifer: NATALIE GARCIA ([phone])[facility] ([facility])[address] Start: 06-06-2025 Blood typing serologic abo [...] Hepatitis b surf antibody hbsab Mi alonzo [employer] Work Phone: Start: 06-02-2025 Iaad ia hepatitis b surface antigen Mi Singh [employer]ING [employer] - [employer] Work Phone: Start: 06-02-2025 Glucose quantitative blood [...] FELDER Comment on above: Performed By: #### [id number] ####Medical Di jennifer: NATALIE GARCIA ([phone])[facility] ([facility])[address] Start: 06-01-2025 ABO and Rh group [...] 02-22-2022 SARS-CoV-2 & FLU Antigen (Rapid) Dr. Kamini James Work Phone: Start: 02-22-2022 Plain chest X-ray Dr. Amado James Work Phone: Start: 02-26-2021 Adult depression screening assessment Amado James MD Work Phone: Start: 08-10-2016 Mammography Amado James MD Work Phone: Start: 09-27-2013 History of placement of stent for coronary artery disease History of coronary artery stent placement Janusz SEARS Comment on above: [id number] LAD w/ 3.0 x 24 mm Promus [...] Author Start: 07-06-2026 Creatinine measurement Creatinine Level [facility] Start: 07-06-2026 Potassium measurement Potassium Level [facility] Start: 07-05-2026 Creatinine measurement Creatinine Level [facility] Start: 07-05-2026 Potassium measurement Potassium Level [facility] Start: 07-03-2026 Creatinine measurement Creatinine Level [facility] Start: 07-03-2026 Potassium measurement Potassium Level [facility] Start: 07-02-2026 Creatinine measurement Creatinine Level [facility] Start: 07-02-2026 Potassium measurement Potassium Level [facility] Start: 06-21-2026 Creatinine measurement [facility] Start: 06-21-2026 Potassium measurement [facility] Start: 12-18-2025 Complete blood count Hemoglobin/Hematocrit [facility] Start: 12-18-2025 Creatinine measurement Serum Creatinine [facility] Start: 12-18-2025 Hepatitis B surface antibody level LDL Cholesterol [facility] Start: 11-27-2025 Annual PCP Team Chronic Disease Visit Annual PCP Team Chronic Disease Visit [facility] Start: 09-26-2025 Annual PCP Team Chronic Disease Visit Annual PCP Team Chronic Disease Visit [facility] Start: 09-26-2025 BP Controlled (<130/80) BP Controlled (<130/80) [facility] Start: 08-31-2025 Complete blood count Hemoglobin/Hematocrit [facility] Start: 08-31-2025 Creatinine measurement Serum Creatinine [facility] Start: 08-31-2025 Hepatitis B surface antibody level LDL Cholesterol [facility] Start: 08-28-2025 Annual PCP Team Chronic Disease Visit Annual PCP Team Chronic Disease Visit [facility] Start: 08-28-2025 BP Controlled (<130/80) BP Controlled (<130/80) [facility] Start: 07-11-2025 Annual PCP Team Chronic Disease Visit Annual PCP Team Chronic Disease Visit [facility] Start: 07-11-2025 Covid-19 Vaccine ( season) Covid-19 Vaccine ( season) [facility] Comment on above: Postponed from 05/28/2024 (Declined at t his time) Start: 07-11-2025 Pneumococcal Vaccine: 50+ (3 of 3 - PCV20 or PCV21) Pneumococcal Vaccine: 50+ (3 of 3 - PCV20 or PCV21) [facility] Comment on above: Postponed from 10/25/2019 (Declined at t his time) Start: 07-11-2025 Pneumococcal Vaccine: 65+ (3 of 3 - PPSV23 or PCV20) Pneumococcal Vaccine: 65+ (3 of 3 - PPSV23 or PCV20) [facility] Comment on above: Postponed from 10/25/2015 (Declined at t his time) Start: 07-11-2025 RSV Vaccine (1 - 1-dose 75+ series) RSV Vaccine (1 - 1-dose 75+ series) [facility] Comment on above: Postponed from 2023 (Declined at t his time) Start: 07-11-2025 Shingrix Vaccine (1 of 2) Shingrix Vaccine (1 of 2) [facility] Comment on above: Postponed from 1998 (Declined at t his time) Start: 07-06-2025 Diabetic foot examination Diabetic Foot Exam [facility] Start: 07-04-2025 End: 07-03-2026 IR CVC tunneled dialysis catheter placement IR CVC tunneled dialysis catheter placement Imaging STAT Dialysis complication, subsequent encounter Expected: 07/04/2025 (Approximate), Expires: 07/03/2026 [facility] Work Phone: Comment on above: Expected: 07/04/2025 (Approximate), Expi res: 07/03/2026 Start: 06-20-2025 Hemoglobin A1c measurement HbA1C [facility] Start: 05-28-2025 COVID-19 Vaccine ( season) COVID-19 Vaccine () [facility] Start: 05-28-2025 Influenza vaccination Influenza Vaccine (Season Ended) [facility] Start: 05-28-2025 [facility] Start: 05-06-2025 Annual PCP Team Chronic Disease Visit Annual PCP Team Chronic Disease Visit [facility] Start: 05-06-2025 BP Controlled (<130/80) BP Controlled (<130/80) [facility] Start: 04-15-2025 Complete blood count Hemoglobin/Hematocrit [facility] Start: 04-15-2025 Creatinine measurement Serum Creatinine [facility] Start: 04-15-2025 Hepatitis B surface antibody level LDL Cholesterol [facility] Start: 04-10-2025 Annual PCP Team Chronic Disease Visit Annual PCP Team Chronic Disease Visit [facility] Start: 04-10-2025 Anxiety Screening Anxiety Screening [facility] Start: 04-10-2025 Covid-19 Vaccine ( season) Covid-19 Vaccine ( season) [facility] Comment on above: Postponed from 05/28/2023 (Declined at t his time) Start: 04-10-2025 Depression Screening Depression Screening [facility] Start: 03-26-2025 Influenza vaccination Influenza Vaccine (#1) [facility] Comment on above: Postponed from 05/28/2024 (Declined at t his time) Start: 03-01-2025 Hemoglobin A1c measurement HbA1C [facility] Start: 02-26-2025 End: 02-26-2025 Patient encounter procedure 02/26/2025 3:00 PM EDT Office Visit [facility] [place] [address] [place] [address] Amado James MD [address] [place] [address] 3 month DM follow up [facility] Comment on above: 3 month DM follow up Start: 02-12-2025 Patient referral [facility] Work Phone: Start: 02-11-2025 End: 02-12-2025 [facility] [facility] Start: 02-11-2025 [facility] Start: 02-10-2025 [facility] Start: 02-09-2025 Administration of blood product [facility] Start: 02-08-2025 End: 02-09-2025 [facility] Start: 02-08-2025 Consultation [facility] Start: 02-08-2025 Care planning and problem solving actions [facility] Start: 02-08-2025 Airway suction technique [facility] Start: 02-08-2025 [facility] Start: 02-06-2025 [facility] Start: 02-06-2025 Referral for further care [facility] Start: 02-06-2025 Wound care [facility] Start: 02-06-2025 Thyroid stimulating hormone measurement [facility] Start: 02-05-2025 End: 02-05-2025 Following clinical pathway protocol [facility] Start: 02-05-2025 Consultation for treatment [facility] Start: 02-05-2025 Application of elastic bandage [facility] Start: 02-05-2025 Elevation of affected extremity [facility] Start: 02-05-2025 Notification of physician [facility] Start: 02-05-2025 Patient education [facility] Start: 02-05-2025 Referral to supervisor feed mill [facility] Start: 02-05-2025 Referral to compounding assistant [facility] Start: 02-05-2025 [facility] Start: 02-05-2025 Bacteria identified in Blood by Culture Blood Culture [facility] Start: 02-05-2025 Bacteria identified in Urine by Culture Urine Culture [facility] Start: 02-05-2025 Continuous pulse oximetry [facility] Start: 02-05-2025 Oxygen therapy [facility] Start: 02-05-2025 Incentive spirometry [facility] Start: 02-05-2025 Assessment of risk of venous thromboembolism [facility] Start: 02-05-2025 Insertion of catheter into peripheral vein [facility] Start: 02-05-2025 Measuring intake and output [facility] Start: 02-05-2025 Providing care according to standard [facility] Start: 02-05-2025 Referral to occupational therapist [facility] Start: 02-05-2025 Referral to service [facility] Start: 02-05-2025 Vital signs measurements [facility] Start: 02-05-2025 End: 02-05-2025 [facility] Start: 02-05-2025 Bacterial nucleic acid assay [facility] Start: 02-05-2025 Methicillin resistant Staphylococcus aureus (MRSA) DNA [Presence] in Nose by PATEL with probe detection [facility] Start: 02-05-2025 Verification routine [facility] Start: 02-05-2025 Hospital admission, emergency, from emergency room, medical nature [facility] Start: 02-05-2025 Admission procedure [facility] Start: 02-05-2025 End: 02-05-2025 [facility] Start: 02-05-2025 End: 02-05-2025 [facility] Start: 02-05-2025 Dual pressure spontaneous ventilation support [facility] Start: 02-05-2025 Patient referral to dietitian [facility] Start: 01-02-2025 End: 04-03-2025 CBC panel - Blood by Automated count COMPLETE BLOOD COUNT Lab Routine Anemia, unspecified type Expected: 01/02/2025 (Approximate), Expires: 04/03/2025 [facility] Work Phone: Comment on above: Expected: 01/02/2025 (Approximate), Expi res: 04/03/2025 Start: 01-02-2025 End: 04-03-2025 Iron and Iron binding capacity panel - Serum or Plasma IRON AND TIBC Lab Routine Anemia, unspecified type Expected: 01/02/2025 (Approximate), Expires: 04/03/2025 [facility] Comment on above: Expected: 01/02/2025 (Approximate), Expi res: 04/03/2025 Start: 12-08-2024 End: 12-08-2024 Patient encounter procedure 12/08/2024 2:45 PM EDT Office Visit [facility] [address] [place] [address] Jennifer Elizabeth, OD [address] [place] [address] Diabetic eye exam Ophthalmology Comment on above: Diabetic eye exam Start: 11-27-2024 End: 11-27-2024 Patient encounter procedure 11/27/2024 2:00 PM EST Office Visit [facility] [address] [place] [address] Rufina Soares APRN.BELLMAN [address] [place] [address] 2 mo follow up [facility] Comment on above: 2 mo follow up Start: 11-24-2024 End: 02-23-2025 CBC W Auto Differential panel - Blood COMPLETE BLOOD COUNT AND DIFFERENTIAL Lab Routine Chronic anemia Expected: 11/24/2024 (Approximate), Expires: 02/23/2025 [facility] Comment on above: Expected: 11/24/2024 (Approximate), Expi res: 02/23/2025 Start: 11-24-2024 End: 02-23-2025 Comprehensive metabolic 2000 panel - Serum or Plasma COMPREHENSIVE METABOLIC PANEL Lab Routine Type 2 diabetes mellitus with chronic kidney disease, with long-term current use of insulin, unspecified CKD stage (HCC) Essential hypertension, benign Hyperlipidemia, unspecified hyperlipidemia type Chronic kidney disease, stage 4 (severe) (HCC) Expected: 11/24/2024 (Approximate), Expires: 02/23/2025 [facility] Comment on above: Expected: 11/24/2024 (Approximate), Expi res: 02/23/2025 Start: 11-24-2024 End: 02-23-2025 Hemoglobin A1c in Blood HEMOGLOBIN A1C Lab Routine Type 2 diabetes mellitus with chronic kidney disease, with long-term current use of insulin, unspecified CKD stage (HCC) Expected: 11/24/2024 (Approximate), Expires: 02/23/2025 [facility] Work Phone: Comment on above: Expected: 11/24/2024 (Approximate), Expi res: 02/23/2025 Start: 11-24-2024 End: 02-23-2025 Lipid 1996 panel - Serum or Plasma LIPID PANEL BASIC Lab Routine Type 2 diabetes mellitus with chronic kidney disease, with long-term current use of insulin, unspecified CKD stage (HCC) Essential hypertension, benign Hyperlipidemia, unspecified hyperlipidemia type Expected: 11/24/2024 (Approximate), Expires: 02/23/2025 [facility] Comment on above: Expected: 11/24/2024 (Approximate), Expi res: 02/23/2025 Start: 10-16-2024 Hemoglobin A1c measurement HbA1C [facility] Start: 10-09-2024 Complete blood count Hemoglobin/Hematocrit [facility] Start: 10-09-2024 Creatinine measurement Serum Creatinine [facility] Start: 10-09-2024 Hepatitis B surface antibody level LDL Cholesterol [facility] Start: 10-06-2024 End: 01-05-2025 Microalbumin/Creatinine [Mass Ratio] in Urine ALBUMIN/CREATININE RATIO, URINE Lab Routine Type 2 diabetes mellitus with chronic kidney disease, with long-term current use of insulin, unspecified CKD stage (HCC) Expected: 10/06/2024, Expires: 01/05/2025 [facility] Work Phone: Comment on above: Expected: 10/06/2024, Expires: Start: 09-27-2024 Advance Directive Discussion Advance Directive Discussion [facility] Start: 09-27-2024 Medicare Advantage Annual Wellness Visit Medicare Advantage Annual Wellness Visit [facility] Start: 09-27-2024 [facility] Start: 09-26-2024 End: 09-26-2024 Patient encounter procedure 09/26/2024 9:40 AM EST Office Visit [facility] [address] [place] [address] Amado James MD [address] [place] [address] 1 week DM follow up [facility] Comment on above: 1 week DM follow up Start: 08-28-2024 End: 08-28-2024 Patient encounter procedure 08/28/2024 2:00 PM EST Office Visit [facility] [place] [address] [place] [address] Rufina Soares APRN.BELLMAN [address] [place] [address] follow up [facility] for hypoglycemia [facility] Comment on above: follow up [facility] for hypoglycemia Start: 08-22-2024 End: 11-21-2024 CBC W Auto Differential panel - Blood COMPLETE BLOOD COUNT AND DIFFERENTIAL Lab Routine Anemia, unspecified type Expected: 08/22/2024 (Approximate), Expires: 11/21/2024 [facility] Comment on above: Expected: 08/22/2024 (Approximate), Expi [...] leg edema Expected: 08/22/2024 (Approximate), Expires: 11/21/2024 [facility] Work Phone: Comment on above: Expected: 08/22/2024 (Approximate), Expi res: 11/21/2024 Start: 08-22-2024 End: 11-21-2024 Hemoglobin A1c in Blood HEMOGLOBIN A1C Lab Routine Type 2 diabetes mellitus with chronic kidney disease, with long-term current use of insulin, unspecified CKD stage (HCC) Expected: 08/22/2024 (Approximate), Expires: 11/21/2024 [facility] Comment on above: Expected: 08/22/2024 (Approximate), Expi res: 11/21/2024 Start: 08-22-2024 End: 11-21-2024 Lipid 1996 panel - Serum or Plasma LIPID PANEL BASIC Lab Routine Type 2 diabetes mellitus with chronic kidney disease, with long-term current use of insulin, unspecified CKD stage (HCC) Essential hypertension, benign Hyperlipidemia, unspecified hyperlipidemia type Expected: 08/22/2024 (Approximate), Expires: 11/21/2024 [facility] Comment on above: Expected: 08/22/2024 (Approximate), Expi res: 11/21/2024 Start: 08-21-2024 End: 08-21-2024 Patient encounter procedure 08/21/2024 2:00 PM EST Office Visit [facility] [address] [place] [address] Amado James MD [address] [place] [id number] Discharged from [facility] 08/18/24 - wounds on BL feet [facility] [place] Comment on above: Discharged from [facility] 08/18/24 - wounds on BL feet Start: 08-18-2024 End: 08-18-2024 Patient encounter procedure 08/18/2024 4:20 PM EST Office Visit [facility] [place] [address] [place], [place] [address] Amado James MD [address] [place] [address] 6 week f/u [facility] [place] Comment on above: 6 week f/u Start: 07-11-2024 End: 07-11-2024 Patient encounter procedure [facility] [place] Comment on above: follow up Annual Wellness - fo llow up Start: 05-28-2024 Covid-19 Vaccine ( season) Covid-19 Vaccine () [facility] Start: 05-28-2024 Influenza vaccination [facility] Start: 04-15-2024 3 comp foot exam completed DIABETIC FOOT EXAM [facility] Start: 04-15-2024 ANNUAL PCP TEAM CHRONIC DISEASE VISIT ANNUAL PCP TEAM CHRONIC DISEASE VISIT [facility] Start: 04-15-2024 BP CONTROLLED (<130/80) BP CONTROLLED (<130/80) [facility] Start: 04-15-2024 COLORECTAL CANCER SCREENING COLORECTAL CANCER SCREENING [facility] Comment on above: Postponed from 1993 (Declined at t his time) Start: 04-15-2024 COVID-19 VACCINE (#1) COVID-19 VACCINE (#1) [facility] Comment on above: Postponed from 1948 (Declined at t his time) Start: 04-15-2024 Diabetic foot examination Diabetic Foot Exam [facility] Start: 04-15-2024 Mammography MAMMOGRAM [facility] Comment on above: Postponed from 08/10/2017 (Declined at t his time) Start: 04-15-2024 Pneumococcal Vaccine: 65+ (3 - PPSV23 or PCV20) Pneumococcal Vaccine: 65+ (3 - PPSV23 or PCV20) [facility] Comment on above: Postponed from 10/25/2015 (Declined at t his time) Start: 04-15-2024 Pneumococcal Vaccine: 65+ (3 of 3 - PPSV23 or PCV20) Pneumococcal Vaccine: 65+ (3 of 3 - PPSV23 or PCV20) [facility] Comment on above: Postponed from 10/25/2015 (Declined at t his time) Start: 04-15-2024 PNEUMOCOCCAL: 65+ (3 - PPSV23 or PCV20) PNEUMOCOCCAL: 65+ (3 - PPSV23 or PCV20) [facility] Comment on above: Postponed from 10/25/2015 (Declined at t his time) Start: 04-15-2024 Screening for malignant neoplasm of colon Colorectal Cancer Screening [facility] Comment on above: Postponed from 1993 (Declined at t his time) Start: 04-15-2024 SHINGRIX VACCINE (1 of 2) SHINGRIX VACCINE (1 of 2) [facility] Comment on above: Postponed from 1998 (Declined at t his time) Start: 04-10-2024 End: 04-10-2024 Patient encounter procedure 04/10/2024 6:00 PM EDT Office Visit [facility] [address] [place] [id number] Amado James MD [address] [place] [id number] Medicare Wellness [facility] [place] Comment on above: Medicare Wellness Start: 04-10-2024 End: 07-10-2024 CBC panel - Blood by Automated count COMPLETE BLOOD COUNT Lab Routine Essential hypertension, benign Anemia, unspecified type Expected: 04/10/2024 (Approximate), Expires: 07/10/2024 [facility] Comment on above: Expected: 04/10/2024 (Approximate), Expi res: 07/10/2024 Start: 04-10-2024 End: 07-10-2024 Comprehensive metabolic 2000 panel - Serum or Plasma COMPREHENSIVE METABOLIC PANEL Lab Routine Type 2 diabetes mellitus with stage 3b chronic kidney disease, without long-term current use of insulin (HCC) Hyperlipidemia, unspecified hyperlipidemia type Expected: 04/10/2024 (Approximate), Expires: 07/10/2024 [facility] Work Phone: Comment on above: Expected: 04/10/2024 (Approximate), Expi res: 07/10/2024 Start: 04-10-2024 End: 07-10-2024 Hemoglobin A1c in Blood HEMOGLOBIN A1C Lab Routine Type 2 diabetes mellitus with stage 3b chronic kidney disease, without long-term current use of insulin (HCC) Expected: 04/10/2024 (Approximate), Expires: 07/10/2024 [facility] Comment on above: Expected: 04/10/2024 (Approximate), Expi res: 07/10/2024 Start: 04-10-2024 Hepatitis B surface antibody level LDL CHOLESTEROL [facility] Start: 04-10-2024 End: 07-10-2024 Lipid 1996 panel - Serum or Plasma LIPID PANEL BASIC Lab Routine Type 2 diabetes mellitus with stage 3b chronic kidney disease, without long-term current use of insulin (HCC) Hyperlipidemia, unspecified hyperlipidemia type Expected: 04/10/2024 (Approximate), Expires: 07/10/2024 [facility] Comment on above: Expected: 04/10/2024 (Approximate), Expi res: 07/10/2024 Start: 04-10-2024 SERUM CREATININE SERUM CREATININE [facility] Start: 04-08-2024 Hemoglobin A1c measurement HbA1C [facility] Start: 01-13-2024 ANNUAL PCP TEAM CHRONIC DISEASE VISIT ANNUAL PCP TEAM CHRONIC DISEASE VISIT [facility] Start: 01-13-2024 BP CONTROLLED (<130/80) BP CONTROLLED (<130/80) [facility] Start: 01-02-2024 HEMOGLOBIN/HEMATOCRIT HEMOGLOBIN/HEMATOCRIT [facility] Start: 01-02-2024 Hepatitis B screening Urine Albumin:Creatinine Ratio [facility] Start: 01-02-2024 Hepatitis B surface antibody level LDL CHOLESTEROL [facility] Start: 01-02-2024 SERUM CREATININE SERUM CREATININE [facility] Start: 10-16-2023 End: 12-16-2023 CBC W Auto Differential panel - Blood CBC + DIFF Lab Routine H/O: GI bleed Anemia, unspecified type Expected: 10/16/2023 (Approximate), Expires: 12/16/2023 [facility] Work Phone: Comment on above: Expected: 10/16/2023 (Approximate), Expi res: 12/16/2023 Start: 10-16-2023 End: 12-16-2023 Comprehensive metabolic 2000 panel - Serum or Plasma COMP METABOLIC PANEL Lab Routine Chronic kidney disease, stage 4 (severe) ([facility]) Type 2 diabetes mellitus with stage 3b chronic kidney disease, without long-term current use of insulin (HCC) Hyperlipidemia, unspecified hyperlipidemia type Essential hypertension, benign Expected: 10/16/2023 (Approximate), Expires: 12/16/2023 [facility] Work Phone: Comment on above: Expected: 10/16/2023 (Approximate), Expi res: 12/16/2023 Start: 10-16-2023 End: 12-16-2023 Hemoglobin A1c in Blood HGB A1C Lab Routine Type 2 diabetes mellitus with stage 3b chronic kidney disease, without long-term current use of insulin (HCC) Expected: 10/16/2023 (Approximate), Expires: 12/16/2023 [facility] Work Phone: Comment on above: Expected: 10/16/2023 (Approximate), Expi res: 12/16/2023 Start: 10-16-2023 End: 12-16-2023 Lipid 1996 panel - Serum or Plasma LIPID PANEL BASIC Lab Routine Hyperlipidemia, unspecified hyperlipidemia type Essential hypertension, benign Expected: 10/16/2023 (Approximate), Expires: 12/16/2023 [facility] Work Phone: Comment on above: Expected: 10/16/2023 (Approximate), Expi res: 12/16/2023 Start: 10-16-2023 End: 12-16-2023 Thyrotropin [Units/volume] in Serum or Plasma TSH BLD Lab Routine Elevated TSH Expected: 10/16/2023 (Approximate), Expires: 12/16/2023 [facility] Work Phone: Comment on above: Expected: 10/16/2023 (Approximate), Expi res: 12/16/2023 Start: 10-11-2023 Hemoglobin A1c/Hemoglobin.total in Blood HBA1C [facility] Start: 09-27-2023 Advance Directive Discussion Advance Directive Discussion [facility] Start: 09-27-2023 Behavioral Health Screening Behavioral Health Screening [facility] Start: 09-27-2023 Depression Assessment Depression Assessment [facility] Start: 07-13-2023 ANNUAL PCP TEAM CHRONIC DISEASE VISIT ANNUAL PCP TEAM CHRONIC DISEASE VISIT [facility] Start: 07-06-2023 HEMOGLOBIN/HEMATOCRIT HEMOGLOBIN/HEMATOCRIT [facility] Start: 07-06-2023 Hepatitis B surface antibody level LDL CHOLESTEROL [facility] Start: 07-06-2023 SERUM CREATININE SERUM CREATININE [facility] Start: 05-28-2023 Covid-19 Vaccine () Covid-19 Vaccine () [facility] Start: 05-28-2023 Influenza vaccination [facility] Start: 04-07-2023 Adult depression screening assessment DEPRESSION SCREENING [facility] Start: 04-07-2023 ANNUAL PCP TEAM CHRONIC DISEASE VISIT ANNUAL PCP TEAM CHRONIC DISEASE VISIT [facility] Start: 04-07-2023 BP CONTROLLED (<130/80) BP CONTROLLED (<130/80) [facility] Start: 04-07-2023 COVID-19 VACCINE (#1) COVID-19 VACCINE (#1) [facility] Comment on above: Postponed from 1948 (Declined at t his time) Start: 04-02-2023 Hemoglobin A1c/Hemoglobin.total in Blood HBA1C [facility] Start: 04-02-2023 HEMOGLOBIN/HEMATOCRIT HEMOGLOBIN/HEMATOCRIT [facility] Start: 04-02-2023 Hepatitis B surface antibody level LDL CHOLESTEROL [facility] Start: 04-02-2023 SERUM CREATININE SERUM CREATININE [facility] Start: 03-26-2023 Influenza vaccination INFLUENZA (#1) [facility] Comment on above: Postponed from 05/28/2022 (Declined at t his time) Start: 2023 RSV Immunization for Adults (1 - 1-dose 75+ series) RSV Immunization for Adults (1 - 1-dose 75+ series) [facility] Start: 2023 [facility] Start: 01-11-2023 End: 03-13-2023 ALBUMIN/CREAT RATIO RND UR ALBUMIN/CREAT RATIO RND UR Lab Routine Controlled type 2 diabetes mellitus without complication, with long-term current use of insulin (HCC) Essential hypertension, benign Stage 3b chronic kidney disease (HCC) Expected: 01/11/2023 (Approximate), Expires: 03/13/2023 [facility] Work Phone: Comment on above: Expected: 01/11/2023 (Approximate), Expi res: 03/13/2023 Start: 01-11-2023 End: 03-13-2023 CBC W Auto Differential panel - Blood CBC + DIFF Lab Routine Essential hypertension, benign Stage 3b chronic kidney disease (HCC) Expected: 01/11/2023 (Approximate), Expires: 03/13/2023 [facility] Work Phone: Comment on above: Expected: 01/11/2023 (Approximate), Expi res: 03/13/2023 Start: 01-11-2023 End: 03-13-2023 Comprehensive metabolic 2000 panel - Serum or Plasma COMP METABOLIC PANEL Lab Routine Controlled type 2 diabetes mellitus without complication, with long-term current use of insulin (HCC) Essential hypertension, benign Hyperlipidemia, unspecified hyperlipidemia type Expected: 01/11/2023 (Approximate), Expires: 03/13/2023 [facility] Work Phone: Comment on above: Expected: 01/11/2023 (Approximate), Expi res: 03/13/2023 Start: 01-11-2023 End: 03-13-2023 Hemoglobin A1c in Blood HGB A1C Lab Routine Controlled type 2 diabetes mellitus without complication, with long-term current use of insulin (HCC) Expected: 01/11/2023 (Approximate), Expires: 03/13/2023 [facility] Work Phone: Comment on above: Expected: 01/11/2023 (Approximate), Expi res: 03/13/2023 Start: 01-11-2023 End: 03-13-2023 Lipid 1996 panel - Serum or Plasma LIPID PANEL BASIC Lab Routine Essential hypertension, benign Hyperlipidemia, unspecified hyperlipidemia type Expected: 01/11/2023 (Approximate), Expires: 03/13/2023 [facility] Work Phone: Comment on above: Expected: 01/11/2023 (Approximate), Expi res: 03/13/2023 Start: 10-06-2022 Hemoglobin A1c/Hemoglobin.total in Blood HBA1C [facility] Start: 10-03-2022 Hemoglobin A1c/Hemoglobin.total in Blood HBA1C [facility] Start: 09-30-2022 ANNUAL PCP TEAM CHRONIC DISEASE VISIT ANNUAL PCP TEAM CHRONIC DISEASE VISIT [facility] Start: 09-30-2022 BP CONTROLLED (<130/80) BP CONTROLLED (<130/80) [facility] Start: 09-27-2022 ADVANCE DIRECTIVE DISCUSSION ADVANCE DIRECTIVE DISCUSSION [facility] Start: 09-27-2022 DEPRESSION ASSESSMENT DEPRESSION ASSESSMENT [facility] Start: 09-22-2022 HEMOGLOBIN/HEMATOCRIT HEMOGLOBIN/HEMATOCRIT [facility] Start: 09-22-2022 Hepatitis B surface antibody level LDL CHOLESTEROL [facility] Start: 09-22-2022 SERUM CREATININE SERUM CREATININE [facility] Start: 07-08-2022 End: 09-07-2022 CBC W Auto Differential panel - Blood CBC + DIFF Lab Routine Essential hypertension, benign Stage 3b chronic kidney disease (HCC) Anemia, unspecified type Expected: 07/08/2022, Expires: 09/07/2022 [facility] Work Phone: Comment on above: Expected: 07/08/2022, Expires: Start: 07-08-2022 End: 09-07-2022 Comprehensive metabolic 2000 panel - Serum or Plasma COMP METABOLIC PANEL Lab Routine Controlled type 2 diabetes mellitus without complication, with long-term current use of insulin (HCC) Essential hypertension, benign Hyperlipidemia, unspecified hyperlipidemia type Stage 3b chronic kidney disease (HCC) Expected: 07/08/2022, Expires: 09/07/2022 [facility] Work Phone: Comment on above: Expected: 07/08/2022, Expires: 2 Start: 07-08-2022 End: 09-07-2022 Hemoglobin A1c in Blood HGB A1C Lab Routine Controlled type 2 diabetes mellitus without complication, with long-term current use of insulin (HCC) Expected: 07/08/2022, Expires: 09/07/2022 [facility] Work Phone: Comment on above: Expected: 07/08/2022, Expires: 2 Start: 07-08-2022 End: 09-07-2022 Lipid 1996 panel - Serum or Plasma LIPID PANEL BASIC Lab Routine Essential hypertension, benign Hyperlipidemia, unspecified hyperlipidemia type Expected: 07/08/2022, Expires: 09/07/2022 [facility] Work Phone: Comment on above: Expected: 07/08/2022, Expires: 2 Start: 05-29-2022 3 comp foot exam completed DIABETIC FOOT EXAM [facility] Start: 05-28-2022 Influenza vaccination [facility] Start: 03-23-2022 Hemoglobin A1c/Hemoglobin.total in Blood HBA1C [facility] Start: 02-26-2022 Patient discharge [facility] Work Phone: Start: 02-26-2022 Adult depression screening assessment DEPRESSION SCREENING [facility] Start: 02-25-2022 Referral to service [facility] Work Phone: Start: 02-25-2022 Continuous pulse oximetry [facility] Work Phone: Start: 02-23-2022 Oxygen therapy [facility] Work Phone: Start: 02-22-2022 Catheterization of vein [facility] Work Phone: Start: 02-22-2022 Bacteria identified in Blood by Culture Blood Culture [facility] Work Phone: Start: 02-22-2022 Following clinical pathway protocol [facility] Work Phone: Start: 02-22-2022 Transfusion of blood product [facility] Work Phone: Start: 02-22-2022 Application of intermittent pneumatic compression device [facility] Work Phone: Start: 02-22-2022 Assessment of risk of venous thromboembolism [facility] Work Phone: Start: 02-22-2022 Care regimes management [facility] Work Phone: Start: 02-22-2022 Catheterization of vein [facility] Work Phone: Start: 02-22-2022 Chart related administrative procedure [facility] Work Phone: Start: 02-22-2022 Incentive spirometry [facility] Work Phone: Start: 02-22-2022 Inhalation therapy procedure [facility] Work Phone: Start: 02-22-2022 Insertion of catheter into peripheral vein [facility] Work Phone: Start: 02-22-2022 Measuring intake and output [facility] Work Phone: Start: 02-22-2022 Notification of physician [facility] Work Phone: Start: 02-22-2022 Providing care according to standard [facility] Work Phone: Start: 02-22-2022 Provision of activity privileges [facility] Work Phone: Start: 02-22-2022 Referral to gastroenterology service [facility] Work Phone: Start: 02-22-2022 Referral to occupational therapist [facility] Work Phone: Start: 02-22-2022 Referral to service [facility] Work Phone: Start: 02-22-2022 [facility] Work Phone: Start: 02-22-2022 Admission procedure [facility] Work Phone: Start: 02-22-2022 Administration of blood product [facility] Work Phone: Start: 02-22-2022 Patient referral to dietitian [facility] Work Phone: Start: 09-27-2021 ADVANCE DIRECTIVE DISCUSSION ADVANCE DIRECTIVE DISCUSSION [facility] Start: 10-25-2019 Pneumococcal Vaccine: 50+ Years (3 of 3 - PCV20 or PCV21) Pneumococcal Vaccine: 50+ Years (3 of 3 - PCV20 or PCV21) [facility] Start: 10-25-2019 [facility] Start: 06-03-2019 COLORECTAL CANCER SCREENING COLORECTAL CANCER SCREENING [facility] Start: 06-03-2019 FECAL OCCULT BLOOD FECAL OCCULT BLOOD [facility] Start: 06-03-2019 Screening for malignant neoplasm of colon Fecal Occult Blood [facility] Start: 03-11-2019 Glaucoma screening Dilated Retinal Exam [facility] Start: 03-11-2019 Hepatitis C antibody, confirmatory test DILATED RETINAL EXAM [facility] Start: 08-10-2017 Mammography MAMMOGRAM [facility] Start: 10-25-2015 Pneumococcal Vaccine: 65+ (3 of 3 - PPSV23 or PCV20) Pneumococcal Vaccine: 65+ (3 of 3 - PPSV23 or PCV20) [facility] Start: 10-25-2015 PNEUMOCOCCAL: 65+ (3 - PPSV23 if available, else PCV20) PNEUMOCOCCAL: 65+ (3 - PPSV23 if available, else PCV20) [facility] Start: 10-25-2015 PNEUMOCOCCAL: 65+ (3 - PPSV23 or PCV20) PNEUMOCOCCAL: 65+ (3 - PPSV23 or PCV20) [facility] Start: 12-20-2014 Pneumococcal Vaccine: 50+ Years (3 of 3 - PPSV23, PCV20 or PCV21) Pneumococcal Vaccine: 50+ Years (3 of 3 - PPSV23, PCV20 or PCV21) [facility] Start: 2008 Hepatitis B Vaccine (1 of 3 - Risk 3-dose series) Hepatitis B Vaccine (1 of 3 - Risk 3-dose series) [facility] Start: 2008 RSV Vaccine (1 - 1-dose 60+ series) RSV Vaccine (1 - 1-dose 60+ series) [facility] Start: 1998 SHINGRIX VACCINE (1 of 2) SHINGRIX VACCINE (1 of 2) [facility] Start: 1998 Zoster Vaccines (1 of 2) Zoster Vaccines (1 of 2) [facility] Start: 1998 [facility] Start: 1993 COLOGUARD (FIT-DNA) COLOGUARD (FIT-DNA) [facility] Start: 1993 Colonoscopy COLONOSCOPY [facility] Start: [address] COLONOGRAPHY [facility] Start: 1993 Screening for malignant neoplasm of colon [facility] Start: 1993 SIGMOIDOSCOPY SIGMOIDOSCOPY [facility] Start: 1968 Hepatitis B Vaccines (1 of 3 - Risk Dialysis 4-dose series) Hepatitis B Vaccines (1 of 3 - Risk Dialysis 4-dose series) [facility] Start: 1967 DTaP/Tdap/Td Vaccines (1 - Tdap) DTaP/Tdap/Td Vaccines (1 - Tdap) [facility] Start: 1967 Urine microalbumin profile [facility] Start: 1967 [facility] Start: 1966 BP CONTROLLED (<130/80) BP CONTROLLED (<130/80) [facility] Start: 1966 Hepatitis C screening [facility] Start: 1960 Depression Monitoring Depression Monitoring [facility] Start: 1960 [facility] Start: 1953 COVID-19 VACCINE (#1) COVID-19 VACCINE (#1) [facility] Start: 1948 Echocardiography Echocardiogram [facility] Start: 1948 Screening for osteoporosis [facility] Start: 1948 [facility] Anion gap in Serum o r Plasma [facility] Anion gap in Serum o r Plasma [facility] Anion gap in Serum o r Plasma [facility] Basic metabolic 2008 panel with ionized calcium - Serum or Plasma [facility] BUN/Creatinine ratio [facility] BUN/Creatinine ratio [facility] BUN/Creatinine ratio [facility] Calcium [Mass/volume ] in Serum or Plasma [facility] Calcium [Mass/volume ] in Serum or Plasma [facility] Calcium [Mass/volume ] in Serum or Plasma [facility] Carbon dioxide, tota l [Moles/volume] in Central venous blood [facility] Carbon dioxide, tota l [Moles/volume] in Central venous blood [facility] Carbon dioxide, tota l [Moles/volume] in Central venous blood [facility] Creatinine [Mass/vol ume] in Serum or Plasma [facility] Creatinine [Mass/vol ume] in Serum or Plasma [facility] Creatinine [Mass/vol ume] in Serum or Plasma [facility] Erythrocyte mean corpuscular volume determination [facility] Glucose [Mass/volume ] in Serum or Plasma [facility] Glucose [Mass/volume ] in Serum or Plasma [facility] Glucose [Mass/volume ] in Serum or Plasma [facility] Hematocrit [Volume Fraction] of Blood [facility] Hemoglobin [Mass/vol ume] in Blood [facility] Leukocytes [#/volume ] in Blood [facility] End: 03-25-2024 [facility] SCREENING BUSTER SCREENING Radiology Routine Encounter for screening mammogram for breast cancer 1 Occurrences starting 02/24/2023 until 03/25/2024 [facility] Work Phone: Comment on above: 1 Occurrences starting 02/24/2023 until 03/25/2024 Mean corpuscular hemoglobin concentration determination [facility] Mean corpuscular hemoglobin determination [facility] Measurement of renal function [facility] Measurement of renal function [facility] Measurement of renal function [facility] Neutrophil count [facility] Neutrophil percent differential count [facility] NM Heart Views W str ess and W radionuclide IV [facility] Work Phone: NM Heart Views W str ess and W radionuclide IV [facility] Patient referral [facility] Work Phone: Platelets [#/volume] in Blood [facility] Potassium measurement [facility] Potassium measurement [facility] Potassium measurement [facility] Red blood cell count [facility] Red cell distributio n width determination [facility] End: 04-03-2023 Screening mammography bi 2-view breast inc cad BUSTER SCREENING Radiology Routine Encounter for screening mammogram for breast cancer 1 Occurrences starting 03/04/2022 until 04/03/2023 [facility] Work Phone: Comment on above: 1 Occurrences starting 03/04/2022 until 04/03/2023 Serum chloride measurement [facility] Serum chloride measurement [facility] Serum chloride measurement [facility] Sodium measurement [facility] Sodium measurement [facility] Sodium measurement [facility] Troponin T.cardiac [Mass/volume] in Serum or Plasma by High sensitivity method [facility] Troponin T.cardiac [Mass/volume] in Serum or Plasma by High sensitivity method [facility] Urea nitrogen [Mass/volume] in Serum or Plasma [facility] Urea nitrogen [Mass/volume] in Serum or Plasma [facility] Urea nitrogen [Mass/volume] in Serum or Plasma [facility] Urine culture [facility] Immunizations Immunization Date Immunization Notes Care Provider Fa cility 06-03-2018 influenza virus vacc ine, unspecified formulation Amado James MD Work Phone: [facility] 10-25-2014 pneumococcal conjuga te vaccine, 13 valent Amado James MD Work Phone: [facility] 06-27-[address] Amado James Work Phone: [facility] 07-08-2010 influenza virus vacc ine, unspecified formulation Amado James MD Work Phone: [facility] 07-17-2005 influenza virus vacc ine, unspecified formulation Amado James MD Work Phone: [facility] 07-17-2005 pneumococcal polysaccharide vaccine, 23 valent Amado James MD Work Phone: [facility] 06-27-[address] Kamini James Work Phone: [facility] Work Phone: 06-27-2003 pneumococcal vaccine , unspecified formulation Amado James MD Work Phone: [facility] Payers Date Payer Category Payer Medicare [id number] 2025 Unknown xx 2025 Self-pay [id number] 2024 Medicaid [id number] 2024 Medicaid [id number] 2023 Medicare HMO [id number] 2019 Medicare (Managed Care) NADEEN CASTLE PPO Member Subscriber Plan / Payer (Effective 2019-Present) Name: LouisBernajosé miguel Garrett Relation to Subscriber: Self Name: Louis Bernajosé miguel Garrett Payer ID: [id number] (NAIC) Group ID: [id number] Type: PPO Address: [address] [place] [id number] 2019 Unknown ANTHTONY GANN S AND BLUE SHIELD ANTHEM MEDIBLUE ACCESS [id number] 2019-Present [phone] [address] [place] [address] PPO [id number] 2019 Unknown [id number] 2019 Medicare [id number] Unknown [id number] Unknown [id number] Unknown [id number] Unknown [id number] Unknown [id number] Unknown [id number] Social History Date Type Detail Facility Start: 02-22-2022 End: 06-17-2023 Tobacco smoking status [facility] Unknown if ever smoked [facility] Start: 09-26-2013 None [facility] Start: 09-26-2013 Spouse/ Signif icant Other [facility] Start: 09-26-2013 Non-smoker [facility] Start: 1950 Sex Assigned At Female W [facility] Start: 07-13-2022 End: 02-05-2025 Tobacco smoking status NHIS Ex-smoker [facility] Start: 09-30-2021 End: 11-27-2024 Alcohol intake Current non-drinker of alcohol (finding) [facility] Start: 12-31-2009 End: 07-13-2022 Tobacco Comment Quit 1980s [facility] Start: 1950 Sex Assigned At Not on file C [facility] Start: 02-22-2022 End: 04-07-2022 Exposure to SARS-CoV-2 (event) Not sure [facility] Work Phone: History of tobacco use Current smoker [facility] Start: 07-13-2022 End: 06-01-2025 Tobacco use and exposure Smokeless tobacco non-user [facility] Start: 04-15-2023 End: 07-06-2025 History of Social function [facility] Work Phone: Start: 04-15-2023 End: 07-06-2025 Tobacco use panel [facility] Work Phone: Adult Depression Screening Assessment 2 [facility] Work Phone: How often to you hav e a drink containing alcohol? Never [facility] Start: 06-01-2025 Tobacco smoking status NHIS Never smoked tobacco [facility] History of tobacco use Passive smoker [facility] Within the last year , have you been afraid of your partner or ex-partner? No [facility] Start: 06-01-2025 Sex Female (finding) [facility] NEGATED: Highlighted row Not [facility] Medical Equipment Procedure Code Equipment Code Equipment Origin al Text Equipment Identifier Dates Amputation, foot AXIOFILL,500MG FDA Star t: 07-14-2024 Amputation, foot AXIOFILL,500MG FDA Star t: 07-14-2024 Amputation, foot AXIOFILL,500MG FDA Star t: 07-14-2024 [id number], [id number], [id number], [id number], [id number] Start: 08-10-2016 End: 08-28-2024 Comment on above: [...] Assessment Result Facility 02-12-2025 Functional status Bedrest [facility] Work Phone: 02-26-2022 Functional status Ambulates [facility] Work Phone: 10-25-2014 Are you deaf, or do you have serious difficulty hearing No 10/25/2014 9:39 AM Mariza Rehman MA No [facility] 10-25-2014 Are you blind, or do you have serious difficulty seeing, even when wearing glasses No 10/25/2014 9:39 AM Mariza Rehman MA No [facility] 10-25-2014 Do you have serious difficulty walking or climbing stairs No 10/25/2014 9:39 AM Mariza Rehman MA No [facility] 10-25-2014 Do you have difficul ty dressing or bathing No 10/25/2014 9:39 AM Mariza Rehman MA No [facility] 10-25-2014 Because of a physica l, mental, or emotional condition, do you have difficulty doing errands alone such as visiting a physician's office or shopping No 10/25/2014 9:39 AM Mariza Rehman MA No [facility] Mental Status Date Assessment Result Facility 02-12-2025 Cognitive function Voice/Name;Light Pain [facility] Work Phone: 02-26-2022 Cognitive function Voice/Name [facility] Work Phone: 10-25-2014 Because of a physica l, mental, or emotional condition, do you have serious difficulty concentrating, remembering, or making decisions No 10/25/2014 9:39 AM Mariza Rehman MA No [facility] Clinical Notes 09-27-2013 to 07-06-2025 Darrell Egan RN - 07/06/2025 5:28 PM Stefani Egan RN - 07/06/2025 5:28 PM Stefani Egan RN - 07/06/2025 4:06 PM Joie Prasad RN - 07/06/2025 12:10 PM [facility] - TERRA Note Date & Type Note Facility 07-06-2025 Nurse Note Pt report called to SNF , Pt care transferred to Private EMS Self Contained Behavior Unit Teacher , Vitals and Pertinent medical hx and treatment reviewed. Pt transferred from bed to cot rails x 2. Vent switched from RT vent to EMS teams Vent. Pt left in EMS crews care fro transport back to SNF T [facility] 07-06-2025 Nurse Note Pt report called to SNF , Pt care transferred to Private EMS Self Contained Behavior Unit Teacher , Vitals and Pertinent medical hx and [...] Name: Rosa Myers Patient : 1950 Acct: [id number] Date of Admission: 07/04/2025 Room/Bed: T2-217/T2 A Code Status: Full Code Allergies: Allergies[1] [...] - Before each treatment: Dialysis Machine No.: [id number] Machine Number: [id number] Dialyzer Lot No.: [id number] Tubing Lot Number: [id number] All Connections Secure: Yes Venous Parameters Set: Yes Arterial Parameters Set: Yes NS Bag: Yes Saline Line Double Clamped: Yes Dialyzer: Nipro Prime Volume (mL): 250 mL RO Machine Number: [id number] RO Machine Log Sheet Completed: Yes Machine Alarm Self Test: Completed, Passed (07/06/25819) Air Foam Detector: Tested, Proper Function, pH Reading Extracorporeal Circuit Tested for Integrity: Yes Machine Conductivity: 14.3 Manual Conductivity: 14 Manual Ph: 7.2 Bleach Test (Neg): Yes Bath Temperature: 36 C (96.8 F) Conductivity Meter Serial #: [id number] Machine Functioning Alarm Free? Yes Dialysis Bath: K+ (Potassium): 3 Ca+ (Calcium): 2.5 Na+ (Sodium): 137 HCO3 (Bicarb): 32 Bicarbonate Concentrate Lot No.: [id number] Acid Concentrate Lot No.: [id number] Chlorine Testing - Before each treatment and [...] (mmHg) TMP DFR Access Visible Intra-Hemodialysis Comments 07/06/25 0825 400 mL/min 570 ml/hr -80 mmHg 100 [...] 126/48 -- -- 66 14 100 % 07/06/2530 143/69 -- -- 62 15 100 % 07/06/25 0915 136/50 -- -- 64 18 100 % 07/06/25 0900 141/52 -- -- 66 -- 100 % 07/06/25 0845 (!) 127/40 -- -- 61 -- 100 % 07/06/2530 122/53 -- -- 63 -- 100 % 07/06/2525 (!) 127/46 -- -- 61 14 100 [...] (97.6 F) Temporal 67 19 100 % 07/05/252099 (!) 100/41 -- -- 68 18 100 [...] chat Response: Waiting for response Notification Time: 2099 Handoff complete and report given to Primary [...] Anemia Anemia, unspecified type Moderate malnutrition (CMS/HCC) ([facility]) Acute metabolic encephalopathy Anxiety and depression Debility ESRD (end stage renal disease) on dialysis ([facility]) [3] Patient bleeding from old IV site. Changed patient's gown, linens. Also rolled new pull pad under patient. No kinks in FMS. Patient Name: Rosa Myers Patient : 1950 Acct: [id number] Date of Admission: 07/04/2025 Room/Bed: T2-217/T2-217 A [...] RLE Edema LLE Edema Pre-Hemodialysis Comments 07/05/25 7284 Responds to voice (1) -- Regular Rhonchi [...] extremity +1 Moderate Moderate +1 +1 -- 07/05/25 0815 Alert (0) 4 Regular Clear Ecchymosis Warm [...] - Before each treatment: Dialysis Machine No.: [id number] Machine Number: [id number] Dialyzer Lot No.: [id number] Tubing Lot Number: [id number] All Connections Secure: Yes Venous Parameters Set: Yes Arterial Parameters Set: Yes NS Bag: Yes Saline Line Double Clamped: Yes Dialyzer: Nipro Prime Volume (mL): 200 mL Machine Number: [id number] Machine Log Sheet Completed: Yes Machine Alarm Self Test: Completed, Passed (The machine passed all tests at 0417.) (07/05/25 0434) Air Foam Detector: Tested, Proper Function Extracorporeal Circuit Tested for Integrity: Yes Machine Conductivity: 14.3 Manual Conductivity: 14.4 Manual Ph: 7.2 Bleach Test (Neg): Yes Bath Temperature: 36 C (96.8 F) Conductivity Meter Serial #: [id number] Machine Functioning Alarm Free? Yes Dialysis Bath: K+ (Potassium): 3 Ca+ (Calcium): 2.5 Na+ (Sodium): 137 HCO3 (Bicarb): 32 Chlorine Testing - Before each treatment and every 4 hours: Time On: 0510 Time Off: 0810 Treatment Goal: 1L Weight Height: 165.1 cm (5' 5") (07/05/25 [...] -- 64 15 100 % -- -- 07/05/25744 (!) 86/64 36.3 C (97.3 F) Temporal 65 16 100 % -- -- 07/05/25729 (!) 113/44 -- -- 59 15 100 % -- -- 07/05/25714 104/76 -- -- 62 13 100 % -- -- 07/05/25703 -- -- -- -- -- -- 1.651 m (5' 5") -- 07/05/25699 (!) 124/44 -- -- 63 18 100 % -- -- 07/05/25644 101/64 -- -- 61 (!) 8 100 % -- -- 07/05/25629 105/54 -- -- 61 14 100 % -- -- 07/05/25614 91/68 -- -- 65 17 100 % [...] Anemia Anemia, unspecified type Moderate malnutrition (CMS/HCC) ([facility]) Acute metabolic encephalopathy Anxiety and depression Debility ESRD (end stage renal disease) on dialysis ([facility]) [3] This RN reached out to Dr. [...] and he confirmed. documented in this encounter [facility] 07-06-2025 Nurse Note Pt is confused at baseline , pt is from a SNF pt has son who cares for her as well. [facility] 07-06-2025 History of Presen t illness Narrative Images from the original note were not included. NEPHROLOGY PROGRESS NOTE PATIENT NAME: Rosa Myers ROOM: T2/T2 A SERVICE DATE: 07/06/2025 SERVICE TIME: 3:11 PM LENGTH OF STAY: 2 day(s) REFERRING PHYSICIAN: Santos Jacobs DO PRIMARY CARE PHYSICIAN: No primary care provider on file. OUTPATIENT GAS BOOSTER ENGINEER: [facility] (Dr. Loredo) [...] 126/48 -- -- 66 14 100 % 07/06/2530 143/69 -- -- 62 15 100 % 07/06/25 0915 136/50 -- -- 64 18 100 % 07/06/2500 141/52 -- -- 66 -- 100 % 07/06/25 0845 (!) 127/40 -- -- 61 -- 100 % 07/06/2530 122/53 -- -- 63 -- 100 % 07/06/2525 (!) 127/46 -- -- 61 14 100 [...] (97.6 F) Temporal 67 19 100 % 07/05/252099 (!) 100/41 -- -- 68 18 100 [...] (H) 06/02/2025 Lab Results Component Value Date [id number] 1,032 (H) 06/02/2025 FOLATE 12.6 06/02/2025 Recent [...] HD per Wednesday through Wednesday schedule at [facility], HTN, HLD, CHF, chronic respiratory failure s/p trach/PEG, DM type 2, neuropathy, history of C. difficile colitis, anxiety, depression, morbid obesity who presented with malfunctioning of her RIJ HDTC and was admitted for dialysis following replacement of her tunneled line. Nephrology is following for the provision of inpatient dialysis. Plan ESRD on HD per Wednesday through Wednesday schedule at [facility] - patient typically dialyzes per a Wednesday through Wednesday schedule - will plan to dialyze per a MWF schedule while as an inpatient - s/p 3 hour 30 minute HD treatment today as below: [id number] Na 137 K 3 Ca 2.5 HCO3 [...] Emanuel DO PATIENT NAME: Rosa Myers ROOM: [facility] A DATE: July 06, 2025 TIME: 3:11 PM PAGER: [phone] OFFICE: [phone] [1] albuterol, 2.5 mg, Nebulization, TID atorvastatin, [...] chloride 0.9%, 5-40 mL, IntraVENous, q12h [2] [facility] Respiratory Care Department Progress Note Spontaneous Awakening [...] (07/06/25399) Heart Rate: 63 (07/06/251199) Resp: 18 (07/06/251199) SpO2: 100 % (07/06/251199) Suctioning/Secretions Secretion Amount: Moderate (07/05/251529) Secretion Color: White, Villegas (07/05/251529) Secretion Consistency: Thick (07/05/251529) ABG results No results for input(s): "PHART", "NRO2TJV", "PO2ART", "ZXY1AKF", "SO2ART", "U8KCKATF" in the last 72 hours. Does this [...] Recent Labs 07/03/25 1351 07/04/25 1634 07/05/25 034 WBC 7.3 7.4 6.8 RBC 2.94* 2.92* [...] Full Code Anticipated Discharge - Date - [facility] 07/06 Extended Emergency Contact Information Primary Emergency Contact: Marcell Myers Mobile Relation: Son Box Spring Maker needed? No Santos Jacobs DO Division of Hospitalist Medicine Acute care [facility] [1] Past Medical History: Diagnosis Date Anxiety [...] 3350, sodium chloride, sodium chloride 0.9% [4] [facility] Respiratory Care Department Progress Note Spontaneous Awakening [...] Trial Vent Settings Vent Mode: Assist control (07/05/25 1000) Mandatory Type: VC+ (07/05/25 1000) Resp Rate (Set): 14 (07/04/251554) Vt (Set, mL): 420 mL (07/04/251554) FiO2 (%): 50 % (07/05/25 1000) PEEP/CPAP (cm H2O): 8 cm H20 (07/04/251554) Inspiratory Time (sec): 0.9 sec (07/04/25 155) Vitals MAP (mmHg): 65 (07/05/25 1000) Heart Rate: 66 (07/05/25 1000) Resp: 17 (07/05/25 1000) SpO2: 100 % (07/05/25999) Suctioning/Secretions Secretion Amount: Large (07/05/25744) Secretion Color: White (07/05/25744) Secretion Consistency: Thin (07/05/25744) ABG results No results for input(s): "PHART", "CSZ2WBS", "PO2ART", "ASP9FQW", "SO2ART", "O4QHAJFA" in the last 72 hours. Does this patient meet criteria for termination of mechanical ventilation No - Chronic Vent Dependent Name of physician notified via secure chat or in person : n/a (NA if patient did not meet criteria) Comments: Thank you for involving Respiratory in the care of this patient, [facility] Respiratory Care Department Progress Note Spontaneous Awakening Trial Wean Screen Spontaneous Breathing Trial Vent Settings Vent Mode: Assist control (07/04/251554) Mandatory Type: VC+ (07/04/251554) Resp Rate (Set): 14 (07/04/251554) Vt (Set, mL): 420 mL (07/04/251554) FiO2 (%): 70 % (07/04/25 1606) PEEP/CPAP (cm H2O): 8 cm H20 (07/04/251554) Inspiratory Time (sec): 0.9 sec (07/04/251554) Vitals MAP (mmHg): 80 (07/04/25 1606) Heart Rate: 72 (07/04/25 1606) Resp: 14 (07/04/25 1606) SpO2: 100 % (07/04/25 1606) Suctioning/Secretions Secretion Amount: Small (07/04/25 1555) Secretion Color: White (07/04/25 1555) Secretion Consistency: Thick (07/04/25 155) ABG results No results for input(s): "PHART", "PQG5JVJ", "PO2ART", "FFJ8AAN", "SO2ART", "A3JMKXBT" in the last 72 hours. Does this patient meet criteria for termination of mechanical ventilation No - Chronic Vent Dependent Name of physician notified via secure chat or in person : NA (NA if patient did not meet criteria) Comments: Thank you for involving Respiratory in the care of this patient, documented in this encounter [facility] 07-06-2025 Progress note Formatting of t his note might be different from the original. Case Management Discharge Summary Note Who you talked to: Name: Marcell Myers No answer, left HIPAA compliant . Marcell was aware patient would likely discharge today back to SNF. PLAN: Long Term Facility Facility: [facility], Level of Care: adjunct faculty for medical terminology care, and Transport: Prosper Garcia and Barbara via stretcher 07/06/2025 at 7pm.Trach to vent requested. anticipates no copay for transport as joão has dual MCR and JOON. [facility] 07-06-2025 Miscellaneous Notes Case Management Discharge Summary Note Who you talked to: Name: aMrcell Myers No answer, left HIPAA compliant VM. Faith was aware patient would likely discharge today back to SNF. PLAN: Long Term Facility Facility: [facility], Level of Care: adjunct faculty for medical terminology care, and Transport: Prosper Garcia and Barbara via stretcher 07/06/2025 at 7pm.Trach to vent requested. CM anticipates no copay for transport as joão has dual MCR and JOON. Care Management Progress Note Short Medical why still here: Remains for chronic trach/peg, iHD baseline - 5d/wk, iHD today. Nephrology following/consult. Plan for discharge today s/p iHD run. 07/06/25 Ok to discharge per attending. CM tasked EQUIPMENT PROCESSOR to send discharge orders to SNF via careport. Planned Discharge Disposition: [facility]/Residential Care ([facility]) Barriers/Today we still Wait: Clinical stability, Procedure (comment) Length of Stay (Days): 2 GMLOS: No GMLOS Documented Case management will continue to follow for discharge planning. Care Management Progress Note Short Medical why still here: Remains for chronic trach/peg, iHD baseline - 5d/wk, iHD today. Nephrology following/consult. Planned Discharge Disposition: [facility]/Residential Care ([facility]) Can return when medically ready, will need transportation set up. Barriers/Today we still Wait: Clinical stability, Tool Crib Supervisor recommendations (comment), Symptomatic control Length of Stay (Days): 1 GMLOS: No GMLOS Documented Case management will continue to follow for discharge planning. Care Managment Initial Assessment Date: 07/05/2025 Patient Name: Rosa Myers : 1950 Patient Information Source of Information: Patient, Patient Wire Weaver Helper Name/Contact Information: Marcell العلي [phone] Cognition/Language: Other (Comment) (trach/vent - mouths words) Permission given to speak with patient field marketing representative/caregiver as indicated: Yes Confirmation of Payer with patient/family: Yes Payer Name: : Confirmation of Primary Care Physician: Confirmed (SNF provider) Seen in last 2 years?: Yes Primary Caregiver: Other (Comment) (facility) If assistance needed, confirmed caregiver ready, willing and able to care for patient at discharge: Confirmed with: Living Arrangements Current Residence: Number of Floors Number of Entry Steps: Bed/Bath Levels: Facility: [facility] Facility Name: [facility] Plan to Return: Lives with: Other (Comment) [...] Plan Patient expects to be discharged to: [facility] Discharge Planning Actions: Continue to follow, Long Term Facility referral indicated [place] discussed Patient's Choice Rights and [employer] and Collaborative Relationships Disclosed as Indicated for Post-Acute Care: Yes Interdisciplinary Team Engagement: Social Work Referral for: Additional Information: Initial Assessment: Chart reviewed. IA/HRA completed. CM spoke with patient at bedside. Appropriate PPE worn. Patient trach to vent, mouths words and gestures appropriately. Patient from [facility] bedhold. Has insurance on EHR. PCP at SNF. Patient requested CM to call son Marcell to discuss discharge planning. CM called Marcell (son) [phone] regarding discharge planning. Introduced myself and role. Discussed LTACH vs SNF and LTC facility. Discussed several recent admissions to hospital. Marcell wishes for patient to return to [facility]. CM tasked EQUIPMENT PROCESSOR to send referral via careport. Confirmed patient is LTC bedhold, iHD mon to [place] at facility. Will need transportation to facility. Case management will continue to follow for discharge planning. Return referral placed [facility]. Await review and response regarding ability to accept. TCC notified. documented in this encounter [facility] 07-06-2025 Progress note Formatting of t his note might be different from the original. Care Management Progress Note Short Medical why still here: Remains for chronic trach/peg, iHD baseline - 5d/wk, iHD today. Nephrology following/consult. Plan for discharge today s/p iHD run. 07/06/25 Ok to discharge per attending. CM tasked EQUIPMENT PROCESSOR to send discharge orders to SNF via careport. Planned Discharge Disposition: [facility]ci/Residential Care ([facility]) Barriers/Today we still Wait: Clinical stability, Procedure (comment) Length of Stay (Days): 2 GMLOS: No GMLOS Documented Case management will continue to follow for discharge planning. [facility] 07-06-2025 Nurse Note Patient Name: Rosa Myers Patient : 1950 Acct: [id number] Date of Admission: 07/04/2025 Room/Bed: T2-217/T2-217 A [...] RN (First Initial, Last Name, Title): Thalia Eagn RN Incapacitated Nurse Education Completed: Yes HBsAg [...] - Before each treatment: Dialysis Machine No.: [id number] RO Machine Number: [id number] Dialyzer Lot No.: [id number] Tubing Lot Number: [id number] All Connections Secure: Yes Venous Parameters Set: Yes Arterial Parameters Set: Yes NS Bag: Yes Saline Line Double Clamped: Yes Dialyzer: Nipro Prime Volume (mL): 250 mL RO Machine Number: [id number] RO Machine Log Sheet Completed: Yes Machine Alarm Self Test: Completed, Passed (07/06/25819) Air Foam Detector: Tested, Proper Function, pH Reading Extracorporeal Circuit Tested for Integrity: Yes Machine Conductivity: 14.3 Manual Conductivity: 14 Manual Ph: 7.2 Bleach Test (Neg): Yes Bath Temperature: 36 C (96.8 F) Conductivity Meter Serial #: [id number] Machine Functioning Alarm Free? Yes Dialysis Bath: K+ (Potassium): 3 Ca+ (Calcium): 2.5 Na+ (Sodium): 137 HCO3 (Bicarb): 32 Bicarbonate Concentrate Lot No.: [id number] Acid Concentrate Lot No.: [id number] Chlorine Testing - Before each treatment and every 4 hours: Time On: 0825 Time Off: 1155 Treatment Goal: UF 0-2 L as tolerated for SBP >85 or MAP >60, can bolus 25 g PRN IV albumin x2 doses if needed Weight Height: 165.1 cm (5' 5") (07/05/25 0704) Weight: 105 kg (232 lb 5.8 oz) (07/05/25899) BMI (Calculated): 38.67 (10/09/25 0900) 1st check: less than 0.1 ppm at: 0805 2nd check: less than 0.1 ppm at: 1130 3rd check: Not Applicable (if greater than 0.1 ppm, then check every 30 minutes from secondary) Access Flows and Pressures Patient Vitals for the past 8 hrs: Blood Flow Rate (mL/min) Ultrafiltration Rate (ml/hr) Arterial Pressure (mmHg) Venous Pressure (mmHg) TMP DFR Access Visible Intra-Hemodialysis Comments 07/06/25 0825 400 mL/min 570 ml/hr -80 mmHg 100 [...] 122/53 -- -- 63 -- 100 % 07/06/25824 (!) 127/46 -- -- 61 14 100 [...] -- -- -- 72 22 100 % 07/05/25 2000 (!) 96/32 36.3 C (97.4 F) Temporal [...] chat Response: Waiting for response Notification Time: 2099 Handoff complete and report given to Primary [...] ESRD (end stage renal disease) on dialysis ([facility]) [3] [facility] 07-06-2025 Hospital course Narrative Discharge Summary Hospitalist [...] Complexity: follow up within 7-14 calendar days (74781) [x] Severe Complexity: follow up within 7 calendar days (50707) Follow up Testing, Pending results or Referrals [...] Santos Jacobs DO Division of Hospitalist Medicine [facility] 07/06/2025, 2:54 PM [1] Past Medical History: Diagnosis Date Anxiety Depression Diabetes (HCC) Respiratory failure (HCC) documented in this encounter [facility] 07-06-2025 Note [facility] 07-05-2025 Nurse Note Patient bleeding from old IV site. Changed patient's gown, linens. Also rolled new pull pad under patient. No kinks in FMS. [facility] 07-05-2025 Consult note Associated Order (s): IP [...] 12/18/24), ESRD (Wednesday, Wed, Wednesday- HD at [facility]), PEG placement on 02/21 and tracheostomy placement 02/27/2025 who admits with concern for incomplete HD; did not have dialysis since of last week (6 days). Recently get a new dialysis catheter placed 07/04/25; requires dialysis prior to going back to senior living facility. Patient is nonverbal but able to [...] Steady ordered # 57 mls/hour - cyclic 4598-0219, pro-stat, run 20 hours a day, off during dialysis. Estimated Daily Nutrient Needs: Energy Requirements Based On: Kcal/kg Weight Used for Energy Requirements: [place] Weight for Energy Calculation (kg): 57 kg Total Energy Requirements (kcals/day): 25-30 kcals/kg = 8852-0448 kcals/day Weight Used for Protein Requirements: [place] Weight in Kg Used for Protein Requirements: [...] Carb Steady @ 57 mls/hour (cyclic) - 6843-3413 - run 20 hours, off during dialysis. Prostat listed - no amount listed. Water Flushes: none Current EN & Flush Order Provides: ordered Goal EN & Flush Order Provides: Nepro with Carb Steady @ 57 mls/hour x 20 hours (8188-2088), off during dialysis = 2018 kcals, 92g protein, 829 mls free H20 = 35 kcals/kg + 1.6g protein/kg IBW (57kgs). Anthropometric Measures: Height: 165.1 cm (5' 5") Current Body Weight: 105 kg (231 lb 7.7 oz) Weight Source: Bed Scale [place] Body Weight (lbs) (Calculated): 125 lbs [place] Body Weight (Kg) (Calculated): 57 kg % [place] Body Weight (Calculated): 185.2 % BMI (kg/m2) [...] Planning: Too soon to determine Millicent Mcknight RD,LD[facility] Contact: *[phone] or UNI5 Chat [1] atorvastatin, 40 mg, Per G [...] chloride 0.9%, 5-40 mL, IntraVENous, q12h [2] [facility] 07-05-2025 Consult note Associated Order (s): IP [...] 12/18/24), ESRD (Wednesday, Wed, Wednesday- HD at SNF), PEG placement on 02/21 and tracheostomy placement 02/27/2025 who admits with concern for incomplete HD; did not have dialysis since of last week (6 days). Recently get a new dialysis catheter placed 07/04/25; requires dialysis prior to going back to senior living facility. Patient is nonverbal but able to [...] Steady ordered # 57 mls/hour - cyclic 4878-6046, pro-stat, run 20 hours a day, off during dialysis. Estimated Daily Nutrient Needs: Energy Requirements Based On: Kcal/kg Weight Used for Energy Requirements: [place] Weight for Energy Calculation (kg): 57 kg Total Energy Requirements (kcals/day): 25-30 kcals/kg = 4556-1328 kcals/day Weight Used for Protein Requirements: [place] Weight in Kg Used for Protein Requirements: [...] Carb Steady @ 57 mls/hour (cyclic) - 5437-3638 - run 20 hours, off during dialysis. Prostat listed - no amount listed. Water Flushes: none Current EN & Flush Order Provides: ordered Goal EN & Flush Order Provides: Nepro with Carb Steady @ 57 mls/hour x 20 hours (0557-8501), off during dialysis = 2018 kcals, 92g protein, 829 mls free H20 = 35 kcals/kg + 1.6g protein/kg IBW (57kgs). Anthropometric Measures: Height: 165.1 cm (5' 5") Current Body Weight: 105 kg (231 lb 7.7 oz) Weight Source: Bed Scale [place] Body Weight (lbs) (Calculated): 125 lbs [place] Body Weight (Kg) (Calculated): 57 kg % [place] Body Weight (Calculated): 185.2 % BMI (kg/m2) [...] Planning: Too soon to determine Millicent Mcknight RD,LD,[facility] Contact: *[phone] or [facility] [1] atorvastatin, 40 mg, Per G Tube, [...] CONSULT NOTE PATIENT NAME: Rosa Myers ROOM: T2-217/T2-217 A SERVICE DATE: 07/05/2025 SERVICE TIME: 11:08 AM LENGTH OF STAY: 1 day(s) REFERRING PHYSICIAN: Santos Jacobs DO PRIMARY CARE PHYSICIAN: No primary care provider on file. OUTPATIENT GAS BOOSTER ENGINEER: [facility] (Dr. Loredo) Subjective/HPI Rosa Myers is a 75 y.o. female with PMHx significant for ESRD on HD (per Wednesday through Wednesday schedule at [facility]), HTN, HLD, CHF, chronic respiratory failure (s/p [...] -- 66 17 100 % -- -- 07/05/2509 124/98 -- -- 66 -- -- -- -- 07/05/25899 124/98 -- -- 66 15 100 % -- 105 kg (232 lb 5.8 oz) 07/05/25 0815 (!) 112/45 -- -- 64 18 100 % -- -- 07/05/25 0810 (!) 123/42 -- -- 67 21 100 % -- -- 07/05/25 08 99/87 -- -- 64 15 100 % [...] -- 70 19 100 % -- -- 07/04/252230 (!) 123/45 -- -- 64 17 100 [...] (H) 06/02/2025 Lab Results Component Value Date [id number] 1,032 (H) 06/02/2025 FOLATE 12.6 06/02/2025 Recent [...] HD per Wednesday through Wednesday schedule at [facility], HTN, HLD, CHF, chronic respiratory failure s/p trach/PEG, DM type 2, neuropathy, history of C. difficile colitis, anxiety, depression, morbid obesity who presented with malfunctioning of her [facility] HDTC and was admitted for dialysis following replacement of her tunneled line. Nephrology was consulted for the provision of inpatient dialysis. Plan ESRD on HD per Wednesday through Wednesday schedule at [facility] - patient typically dialyzes per a Wednesday through Wednesday schedule - will plan to dialyze per a [facility] schedule while as an inpatient - will plan for a 3 hour 30 minute HD treatment tomorrow 07/06/25 as below: [id number] Na 137 K 3 Ca 2.5 HCO3 [...] Emanuel DO PATIENT NAME: Rosa Myers ROOM: [facility] A DATE: July 05, 2025 TIME: 11:08 AM PAGER: [phone] OFFICE: [phone] [1] Past Medical History: Diagnosis Date Anxiety Depression Diabetes (HCC) Respiratory failure (HCC) [2] No past surgical history on file. [3] No family history on file. [4] Social History Socioeconomic History Marital status: Single Tobacco Use Smoking status: Never Passive exposure: Past Smokeless tobacco: Never Social Drivers of Health Financial Resource Strain: Patient Unable To Answer (03/08/2025) Received from [facility] Overall Financial Resource Strain (CARDIA) Difficulty of Paying Living Expenses: Patient unable to answer Food Insecurity: Patient Unable To Answer (03/08/2025) Received from [facility] Hunger Vital Sign Worried About Running Out of Food in the Last Year: Patient unable to answer Ran Out of Food in the Last Year: Patient unable to answer Transportation Needs: No Transportation Needs (06/01/2025) PRAPARE - Transportation Lack of Transportation (Medical): No Lack of Transportation (Non-Medical): No Physical Activity: Inactive (07/11/2024) Received from [facility] Exercise Vital Sign Days of Exercise per Week: 0 days Minutes of Exercise per Session: 0 min Stress: No Stress Concern Present (04/18/2025) Received from [facility] of Occupational Health - Occupational Stress Questionnaire Feeling of Stress : Only a little Social Connections: Unknown (03/08/2025) Received from [facility] Medical Social Connection and Isolation Panel [NHANES] Frequency of Communication with Friends and Family: Patient unable to answer Frequency of Social Gatherings with Friends and Family: Patient unable to answer Attends [employer] Services: Patient unable to answer Active Member [...] Violence - At Risk (03/07/2025) Received from [facility] Medical Domestic Abuse Assessment Do you feel [...] IntraVENous, q12h [8] documented in this encounter [facility] 07-05-2025 Progress note Formatting of t his note might be different from the original. Care Management Progress Note Short Medical why still here: Remains for chronic trach/peg, iHD baseline - 5d/wk, iHD today. Nephrology following/consult. Planned Discharge Disposition: [facility]ci/Residential Care ([facility]) Can return when medically ready, will need transportation set up. Barriers/Today we still Wait: Clinical stability, Tool Crib Supervisor recommendations (comment), Symptomatic control Length of Stay (Days): 1 GMLOS: No GMLOS Documented Case management will continue to follow for discharge planning. [facility] 07-05-2025 Progress note Formatting of t his note might be different from the original. Care Managment Initial Assessment Date: 07/05/2025 Patient Name: Rosa Myers : 1950 Patient Information Source of Information: Patient, Patient Wire Weaver Helper Name/Contact Information: Marcell العلي [phone] Cognition/Language: Other (Comment) (trach/vent - mouths words) Permission given to speak with patient field marketing representative/caregiver as indicated: Yes Confirmation of Payer with patient/family: Yes Payer Name: : Confirmation of Primary Care Physician: Confirmed (SNF provider) Seen in last 2 years?: Yes Primary Caregiver: Other (Comment) (facility) If assistance needed, confirmed caregiver ready, willing and able to care for patient at discharge: Confirmed with: Living Arrangements Current Residence: Number of Floors Number of Entry Steps: Bed/Bath Levels: Facility: [facility] Facility Name: [facility] Plan to Return: Lives with: Other (Comment) [...] Plan Patient expects to be discharged to: [facility] Discharge Planning Actions: Continue to follow, Long Term Facility referral indicated [place]: [place] discussed Patient's Choice Rights and [employer] and Collaborative Relationships Disclosed as Indicated for Post-Acute Care: Yes Interdisciplinary Team Engagement: Social Work Referral for: Additional Information: Initial Assessment: Chart reviewed. IA/HRA completed. CM spoke with patient at bedside. Appropriate PPE worn. Patient trach to vent, mouths words and gestures appropriately. Patient from [facility] - [facility] bedhold. Has insurance on EHR. PCP at [facility]. Patient requested CM to call ada Faith to discuss discharge planning. CM called Marcell (son) [phone] regarding discharge planning. Introduced myself and role. Discussed LTACH vs SNF and LTC facility. Discussed several recent admissions to hospital. Marcell wishes for patient to return to [facility]. CM tasked [facility] to send referral via careport. Confirmed patient is LTC bedhold, iHD mon to Wednesday at facility. Will need transportation to facility. Case management will continue to follow for discharge planning. [facility] 07-05-2025 Hospital Discharg e kevin Jacobs DO - 07/05/2025 11:38 AM EDT [...] Emergency Contact: Marcell Myers Mobile Relation: Son Box Spring Maker needed? No Past Surgical History: No past [...] 5.8 oz) Mental Status: {TERRA Patient Mental Status:93120} IV Access: {TERRA IV Access:61644} Nursing Mobility/ADLs: Walking {OBED ADL:::"Independent"} Transfer {OBED ADL:::"Independent"} Bathing {OBED ADL:::"Independent"} Dressing {OBED ADL:::"Independent"} Toileting {OBED ADL:::"Independent"} Feeding {OBED ADL:::"Independent"} Hand I Thermal Cutter {OBED ADL:::"Independent"} Med Delivery {yes/no:80924} Wound Care Documentation and Therapy: Elimination: Continence: Bowel: {yes/no:} Bladder: {yes/no:12085} Urinary Catheter: {TERRA Urinary Catheter:} Colostomy/Ileostomy/Ileal Conduit: {YES / NO:} Date of Last BM: Intake/Output Summary (Last 24 hours) at 07/05/2025 1137 Last data filed at 07/05/2025 0815 Gross per 24 hour Intake 300 ml Output 200 ml Net 100 ml I/O last 3 completed shifts: In: 0 (0 mL/kg) Out: 200 (1.9 mL/kg) [Stool:200] Weight: 105.5 kg Safety Concerns: {TERRA Safety Concerns:38009} Impairments/Disabilities: {TERRA Impairments/Disabilities:44966} Nutrition Therapy: Current Nutrition Therapy: {TERRA Diet List:77192} Routes of Feeding: {routes of feedin} Liquids: {liquid consistency:81735} Daily Fluid Restriction: {daily fluid restriction:91474} Last Modified Barium Swallow with Video (Video Swallowing Test): {done not done:69900} Treatments at the Time of Hospital Discharge: Respiratory Treatments: Oxygen Therapy: {Therapy; copd oxygen:28717} Ventilator: {TERRA Ventilator:58250} Rehab Therapies: {GEN THERAPY DISCIPLINE SCAL:1523536} Weight Bearing Status/Restrictions: {POD WEIGHT BEARIN} Other Medical Equipment (for information only, NOT a DME order): {Assistive Devices DME:02713} Other Treatments: Patient's personal belongings (please select all that are sent with patient): {TERRA Patient Belongings:23688} RN SIGNATURE: {E-signature:95421} CASE MANAGEMENT/SOCIAL WORK SECTION Inpatient Status Date: 07/04/2025 Discharging to Facility/ Agency [place] [facility] [place] [address] Dialysis Facility (if applicable) Name: Address: Dialysis Schedule: Phone: Fax: Sequencing Machine Operator/Esthetician/Skin Therapist signature: ICIAN SECTION Name: Rosa Myers Prognosis: [...] to a nursing facility directly from an [facility] or a unit of a [facility] that is not operated by or licensed by [facility] under section 5119.14 or 5160-3-15.1 5 The individual requires the level of services provided by a nursing facility for the condition for which he or she was treated in the hospital and, Physician Certification: I certify the above information and transfer of Rosa Myers is necessary for the continuing treatment of the diagnosis listed and that she requires senior living facility for greater than 30 days. Update Admission H&P: No change in H&P PHYSICIAN SIGNATURE: documented in this encounter [facility] 07-05-2025 Consult note Associated Order (s): IP CONSULT TO NEPHROLOGY Images from the original note were not included. NEPHROLOGY CONSULT NOTE PATIENT NAME: Rosa Myers ROOM: T2-217/T2-217 A SERVICE DATE: 07/05/2025 SERVICE TIME: 11:08 AM LENGTH OF STAY: 1 day(s) REFERRING PHYSICIAN: Santos Jacobs DO PRIMARY CARE PHYSICIAN: No primary care provider on file. OUTPATIENT GAS BOOSTER ENGINEER: [facility] (Dr. Loredo) Subjective/HPI Rosa Myers is a 75 y.o. female with PMHx significant for ESRD on HD (per Wednesday through Wednesday schedule at [facility]), HTN, HLD, CHF, chronic respiratory failure (s/p [...] -- 66 17 100 % -- -- 07/05/2509 124/98 -- -- 66 -- -- -- [...] -- -- 1.651 m (5' 5") -- 07/05/25699 (!) 124/44 -- -- 63 18 100 % -- -- 07/05/2545 101/64 -- -- 61 (!) 8 100 % -- -- 07/05/25629 105/54 -- -- 61 14 100 % [...] (H) 06/02/2025 Lab Results Component Value Date [id number] 1,032 (H) 06/02/2025 FOLATE 12.6 06/02/2025 Recent [...] HD per Wednesday through Wednesday schedule at [facility], HTN, HLD, CHF, chronic respiratory failure s/p trach/PEG, DM type 2, neuropathy, history of C. difficile colitis, anxiety, depression, morbid obesity who presented with malfunctioning of her [facility] HDTC and was admitted for dialysis following replacement of her tunneled line. Nephrology was consulted for the provision of inpatient dialysis. Plan ESRD on HD per Wednesday through Wednesday schedule at [facility] - patient typically dialyzes per a Wednesday through Wednesday schedule - will plan to dialyze per a [facility] schedule while as an inpatient - will plan for a 3 hour 30 minute HD treatment tomorrow 07/06/25 as below: [id number] Na 137 K 3 Ca 2.5 HCO3 [...] July 05, 2025 TIME: 11:08 AM PAGER: [phone] OFFICE: [phone] [1] Past Medical History: Diagnosis Date Anxiety Depression Diabetes (HCC) Respiratory failure (HCC) [2] No past surgical history on file. [3] No family history on file. [4] Social History Socioeconomic History Marital status: Single Tobacco Use Smoking status: Never Passive exposure: Past Smokeless tobacco: Never Social Drivers of Health Financial Resource Strain: Patient Unable To Answer (03/08/2025) Received from [facility] Overall Financial Resource Strain (CARDIA) Difficulty of Paying Living Expenses: Patient unable to answer Food Insecurity: Patient Unable To Answer (03/08/2025) Received from [facility] Hunger Vital Sign Worried About Running Out of Food in the Last Year: Patient unable to answer Ran Out of Food in the Last Year: Patient unable to answer Transportation Needs: No Transportation Needs (06/01/2025) PRAPARE - Transportation Lack of Transportation (Medical): No Lack of Transportation (Non-Medical): No Physical Activity: Inactive (07/11/2024) Received from [facility] Exercise Vital Sign Days of Exercise per Week: 0 days Minutes of Exercise per Session: 0 min Stress: No Stress Concern Present (04/18/2025) Received from [facility] of Occupational Health - Occupational Stress Questionnaire Feeling of Stress : Only a little Social Connections: Unknown (03/08/2025) Received from [facility] Social Connection and Isolation Panel [NHANES] Frequency of Communication with Friends and Family: Patient unable to answer Frequency of Social Gatherings with Friends and Family: Patient unable to answer Attends Roman Catholic Services: Patient unable to answer Active Member [...] Violence - At Risk (03/07/2025) Received from [facility] Medical Domestic Abuse Assessment Do you feel [...] chloride 0.9%, 5-40 mL, IntraVENous, q12h [8] [facility] 07-05-2025 Note Return referral plac ed to [facility] via [facility] per [facility] request. Await review and response regarding ability to accept. [facility] notified. [facility] 07-05-2025 Progress note Formatting of t his note might be different from the original. Return referral placed to [facility] via [facility] per [facility] request. Await review and response regarding ability to accept. [facility] notified. T [facility] 07-05-2025 Nurse Note Patient Name: Rosa Myers Patient : 1950 Acct: [id number] Date of Admission: 07/04/2025 Room/Bed: T2-217/T2-217 A [...] - Before each treatment: Dialysis Machine No.: [id number] RO Machine Number: [id number] Dialyzer Lot No.: [id number] Tubing Lot Number: [id number] All Connections Secure: Yes Venous Parameters Set: Yes Arterial Parameters Set: Yes NS Bag: Yes Saline Line Double Clamped: Yes Dialyzer: Nipro Prime Volume (mL): 200 mL RO Machine Number: [id number] RO Machine Log Sheet Completed: Yes Machine Alarm Self Test: Completed, Passed (The machine passed all tests at 0417.) (07/05/25 0434) Air Foam Detector: Tested, Proper Function Extracorporeal Circuit Tested for Integrity: Yes Machine Conductivity: 14.3 Manual Conductivity: 14.4 Manual Ph: 7.2 Bleach Test (Neg): Yes Bath Temperature: 36 C (96.8 F) Conductivity Meter Serial #: [id number] Machine Functioning Alarm Free? Yes Dialysis Bath: K+ (Potassium): 3 Ca+ (Calcium): 2.5 Na+ (Sodium): 137 HCO3 (Bicarb): 32 Chlorine Testing - Before each treatment and every 4 hours: Time On: 0510 Time Off: 0810 Treatment Goal: 1L Weight Height: 165.1 cm (5' 5") (07/05/25 0704) Weight: 105 kg (232 lb 5.8 oz) [...] Primary RN at bedside. UF Removed- 1284 07/05/25799 400 mL/min 500 ml/hr -110 mmHg 110 mmHg 80 600 Yes Patient resting, UF Removed- 1406 07/05/25809 0 mL/min 0 ml/hr -- -- -- 0 Yes Treatment completed as ordered and blood returned to patient per policy. UF Removed- 1500 Vital Signs Patient Vitals for the past 24 hrs: BP Temp Temp src Pulse Resp SpO2 Height Weight 07/05/25908 124/98 -- -- 66 -- -- -- -- 07/05/25899 124 -- -- 66 15 100 % -- 105 kg (232 lb 5.8 oz) 07/05/25814 (!) 112/45 -- -- 64 18 100 % -- -- 07/05/25809 (!) 123/42 -- -- 67 21 100 % -- -- 07/05/25799 99/87 -- -- 64 15 100 % -- -- 07/05/25744 (!) 86/64 36.3 C (97.3 F) Temporal 65 16 100 % -- -- 07/05/25729 (!) 113/44 -- -- 59 15 100 % -- -- 07/05/25714 104/76 -- -- 62 13 100 % -- -- 07/05/25703 -- -- -- -- -- -- 1.651 m (5' 5") -- 07/05/25699 (!) 124/44 -- -- 63 18 100 % -- -- 07/05/2545 101/64 -- -- 61 (!) 8 100 % -- -- 07/05/25629 105/54 -- -- 61 14 100 % -- -- 07/05/25614 91/68 -- -- 65 17 100 % -- -- 07/05/2503 -- -- -- 62 -- 100 % -- -- 07/05/25599 (!) 117/48 -- -- 64 13 100 % -- 105 kg (232 lb 9.4 oz) 10/09/25 0545 (!) 111/47 -- -- 63 (!) [...] Anemia Anemia, unspecified type Moderate malnutrition (CMS/HCC) ([facility]) Acute metabolic encephalopathy Anxiety and depression Debility ESRD (end stage renal disease) on dialysis ([facility]) [3] T [facility] 07-05-2025 Nurse Note This RN reached out [...] order to Dr. Powell and he confirmed. [facility] 07-04-2025 Emergency department Note Report given to RYNE Browning on T2 ICU [facility] 07-04-2025 Emergency department Note Report given to RYNE Browning on T2 ICU Patient incontinent of stool. Cleaned and repositioned to her R side with wedges. Kangaroo pump requested as well as PEG nutrition EMERGENCY DEPARTMENT ENCOUNTER Pt Name: Rosa Myers Birthdate 1950 Date of evaluation: 07/04/2025 ED Provider: Re Maciel MD CHIEF COMPLAINT Chief Complaint Patient presents with Other Pt here from residential care facility to have dialysis catheter replaced. [...] need for dialysis. Patient follows up with [facility]. Reach out to Dr. Powell who is network professional today for [employer] and informed him of the patient. He will help arrange dialysis before patient goes back to facility. However unable to get dialysis while in the ED. Will need admission. Admitted to [facility] of the patient get dialysis and afterwards will be appropriate for discharge back to her senior living facility. ED Course as of 07/04/251910Jul 04, 2025 1731 [place]aged [facility] [place]TC] ED Course User Index [...] Patient Unable To Answer (03/08/2025) Received from [facility] Medical Overall Financial Resource Strain (CARDIA) Difficulty of Paying Living Expenses: Patient unable to answer Food Insecurity: Patient Unable To Answer (03/08/2025) Received from [facility] Medical Hunger Vital Sign Worried About Running Out of Food in the Last Year: Patient unable to answer Ran Out of Food in the Last Year: Patient unable to answer Transportation Needs: No Transportation Needs (06/01/2025) PRAPARE - Transportation Lack of Transportation (Medical): No Lack of Transportation (Non-Medical): No Physical Activity: Inactive (07/11/2024) Received from [facility] Exercise Vital Sign Days of Exercise per Week: 0 days Minutes of Exercise per Session: 0 min Stress: No Stress Concern Present (04/18/2025) Received from [facility] of Occupational Health - Occupational Stress Questionnaire Feeling of Stress : Only a little Social Connections: Unknown (03/08/2025) Received from [facility] Medical Social Connection and Isolation Panel [NHANES] Frequency of Communication with Friends and Family: Patient unable to answer Frequency of Social Gatherings with Friends and Family: Patient unable to answer Attends Roman Catholic Services: Patient unable to answer Active Member [...] Violence - At Risk (03/07/2025) Received from [facility] Medical Domestic Abuse Assessment Do you feel [...] 2:58 PM EDT documented in this encounter [facility] 07-04-2025 Emergency department Note Patient incontinent of stool. Cleaned and repositioned to her R side with wedges. [facility] 07-04-2025 Emergency department Note Kangaroo pump requested as well as PEG nutrition [facility] 07-04-2025 History and physical note Attending History and Physical Admit Date: 07/04/2025 PCP: No primary care provider on file. CHIEF COMPLAINT: Dialysis Reason for Admission: Dialysis History Obtained From: patient and chart review HISTORY OF PRESENT ILLNESS: Rosa is a 75 y.o. female with past medical history below who presents with chief complaint listed above. Patient resides in a senior living facility. Recently get a new dialysis catheter placed today. She has not had dialysis since of last week, 6 days. Patient needing dialysis prior to going back to senior living facility. She is prevented, treatment and has [...] Patient Unable To Answer (03/08/2025) Received from [facility] Overall Financial Resource Strain (CARDIA) Difficulty of Paying Living Expenses: Patient unable to answer Food Insecurity: Patient Unable To Answer (03/08/2025) Received from [facility] Medical Hunger Vital Sign Worried About Running Out of Food in the Last Year: Patient unable to answer Ran Out of Food in the Last Year: Patient unable to answer Transportation Needs: No Transportation Needs (06/01/2025) PRAPARE - Transportation Lack of Transportation (Medical): No Lack of Transportation (Non-Medical): No Physical Activity: Inactive (07/11/2024) Received from [facility] Exercise Vital Sign Days of Exercise per Week: 0 days Minutes of Exercise per Session: 0 min Stress: No Stress Concern Present (04/18/2025) Received from [facility] of Occupational Health - Occupational Stress Questionnaire Feeling of Stress : Only a little Social Connections: Unknown (03/08/2025) Received from [facility] Medical Social Connection and Isolation Panel [NHANES] Frequency of Communication with Friends and Family: Patient unable to answer Frequency of Social Gatherings with Friends and Family: Patient unable to answer Attends Roman Catholic Services: Patient unable to answer Active Member [...] Violence - At Risk (03/07/2025) Received from [facility] Medical Domestic Abuse Assessment Do you feel safe in your relationships at home?: Yes Physical Abuse: Denies [facility] Domestic Abuse - Type of Abuse: Not on file [facility] Domestic Abuse - Time Frame: Not on file [facility] Domestic Abuse - Signs and Symptoms: Not [...] Discharge - Date -07/05/2025 - [facility] ([facility] - Pending the following -dialysis Total time spent (which include face to face and non face to face encounters) : 75 minutes. Extended Emergency Contact Information Primary Emergency Contact: Marcell Myers Mobile Relation: Son Box Spring Maker needed? No [employer]ING Rosa Myers : 1950 Primary Care Physician: No primary care provider on file. The patient and/or family/surrogate voluntarily agreed to participate in ACP services. Patient s cognitive capacity: Alert and oriented x 2 Code Status: [X] [FULL CODE - Continue all advanced life support: CPR,intubation,invasive procedures] [_] [DNR-CCA - DO NOT do CPR, intubation] [_] [DNR-BALANCE WHEEL HAND FILER - Comfort care only] [_] DNR form [was/was not] signed Full Code Peter Sullivan APRN - [facility] Division of Hospitalist Medicine [1] Past Medical [...] Peters MD at 07/04/2025 7:08 PM EDT [employer] Work Phone: 07-04-2025 Note [employer] [facility] [employer] [facility] 07-04-2025 History and physical note Attending History and Physical Admit Date: 07/04/2025 PCP: No primary care provider on file. CHIEF COMPLAINT: Dialysis Reason for Admission: Dialysis History Obtained From: patient and chart review HISTORY OF PRESENT ILLNESS: Rosa is a 75 y.o. female with past medical history below who presents with chief complaint listed above. Patient resides in a senior living facility. Recently get a new dialysis catheter placed today. She has not had dialysis since of last week, 6 days. Patient needing dialysis prior to going back to senior living facility. She is prevented, treatment and has [...] No Physical Activity: Inactive (07/11/2024) Received from [facility] Exercise Vital Sign Days of Exercise per Week: 0 days Minutes of Exercise per Session: 0 min Stress: No Stress Concern Present (04/18/2025) Received from [facility] of Occupational Health - Occupational Stress Questionnaire Feeling of Stress : Only a little Social Connections: Unknown (03/08/2025) Received from [facility] Medical Social Connection and Isolation Panel [NHANES] Frequency of Communication with Friends and Family: Patient unable to answer Frequency of Social Gatherings with Friends and Family: Patient unable to answer Attends Roman Catholic Services: Patient unable to answer Active Member [...] Violence - At Risk (03/07/2025) Received from [facility] Medical Domestic Abuse Assessment Do you feel safe in your relationships at home?: Yes Physical Abuse: Denies [facility] Domestic Abuse - Type of Abuse: Not on file [facility] Domestic Abuse - Time Frame: Not on file [facility] Domestic Abuse - Signs and Symptoms: Not [...] Discharge - Date -07/05/2025 - Location - [facility] ([facility]) - Pending the following -dialysis Total time spent (which include face to face and non face to face encounters) : 75 minutes. Extended Emergency Contact Information Primary Emergency Contact: Marcell Myers Mobile Relation: Son Box Spring Maker needed? No [employer]ING Rosa Myers : 1950 Primary Care Physician: No primary care provider on file. The patient and/or family/surrogate voluntarily agreed to participate in ACP services. Patient s cognitive capacity: Alert and oriented x 2 Code Status: [X] [FULL CODE - Continue all advanced life support: CPR,intubation,invasive procedures] [_] [DNR-CCA - DO NOT do CPR, intubation] [_] [DNR-BALANCE WHEEL HAND FILER - Comfort care only] [_] DNR form [was/was not] signed Full Code Peter Sullivan, RENITA - [facility] Division of Hospitalist Medicine [1] Past Medical [...] injection 1,200-2,000 Units, 1,200-2,000 Units, IntraCATHeter, PRN, aYmil Newby MD heparin injection 1,200-2,000 Units, 1,200-2,000 Units, IntraCATHeter, PRN, Yamil Newby MD sodium chloride 0.9 % infusion, 50 mL/hr, IntraVENous, Continuous, Ayush Machuca MD, Last Rate: 50 mL/hr at 07/04/25 1450, 50 mL/hr at 07/04/25 1450 [5] No Known Allergies Cosigned by Griffin Peters MD at 07/04/2025 7:08 PM EDT documented in this encounter [facility] 07-04-2025 Physician Emergency department Note EMERGENCY DEPARTMENT ENCOUNTER Pt Name: Rosa Myers Birthdate 1950 Date of evaluation: 07/04/2025 ED Provider: Re Maciel MD CHIEF COMPLAINT Chief Complaint Patient presents with Other Pt here from residential care facility to have dialysis catheter replaced. [...] Reach out to Dr. Powell who is network professional today for [employer] and informed him of the patient. He will help arrange dialysis before patient goes back to facility. However unable to get dialysis while in the ED. Will need admission. Admitted to [facility] the patient get dialysis and afterwards will be appropriate for discharge back to her senior living facility. ED Course as of 07/04/251910Jul 04, 2025 1731 [place]aged [facility] [place]] ED Course User Index [...] Patient Unable To Answer (03/08/2025) Received from [facility] Overall Financial Resource Strain (CARDIA) Difficulty of Paying Living Expenses: Patient unable to answer Food Insecurity: Patient Unable To Answer (03/08/2025) Received from [facility] Medical Hunger Vital Sign Worried About Running Out of Food in the Last Year: Patient unable to answer Ran Out of Food in the Last Year: Patient unable to answer Transportation Needs: No Transportation Needs (06/01/2025) PRAPARE - Transportation Lack of Transportation (Medical): No Lack of Transportation (Non-Medical): No Physical Activity: Inactive (07/11/2024) Received from [facility] Exercise Vital Sign Days of Exercise per Week: 0 days Minutes of Exercise per Session: 0 min Stress: No Stress Concern Present (04/18/2025) Received from [facility] of Occupational Health - Occupational Stress Questionnaire Feeling of Stress : Only a little Social Connections: Unknown (03/08/2025) Received from [facility] Medical Social Connection and Isolation Panel [NHANES] Frequency of Communication with Friends and Family: Patient unable to answer Frequency of Social Gatherings with Friends and Family: Patient unable to answer Attends Roman Catholic Services: Patient unable to answer Active Member [...] Lyon DO at 07/06/2025 2:58 PM EDT [facility] 07-04-2025 Nurse Note Pt transported to ER 37 with RT. POWER MANAGER aware of arrival [facility] 07-04-2025 Miscellaneous Notes Pt transported to ER 37 with RT. POWER MANAGER aware of arrival Procedure finished per Samantha / [facility] at [facility] has dialysis at hospital ( this was not known or conveyed to us until intra/post procedure). Initially they stated pt to go to [facility] for dialysis when I spoke with physicians transport they refuse this transport trip (per dispatcher Lucia and his adult manager Tomy). Spoke again with Samantha at [facility] and they now want her to go to our ER for emergent dialysis as they state it has been 6 days since last dialysis. Spoke with our ER charge manager Hyacinth and went over this situation and need for ER bed for pt - none available at present time and states she will call back when one available. Pt waiting at this time in holding area spot 2 and IR charge nurse updated Unable to place IV - charge manager notified. Limited History per paperwork brought - updated AIR AND MISSILE DEFENSE CREWMEMBER Melvi from anesthesia. RT Tamar was at bedside and switched pt from physicians transport vent to hers documented in this encounter [facility] 07-04-2025 Note Pt tolerated procedu re well. Tunn hd cath exchanged. Transfer pt to IR recovery. [facility] 07-04-2025 Nurse Note Pt tolerated procedure well. Tunn hd cath exchanged. Transfer pt to IR recovery. [facility] 07-04-2025 Nurse Note Pt tolerated procedure [...] for the procedure. documented in this encounter [facility] 07-04-2025 Nurse Note Procedure finished per Samantha / staff at [facility] pt is not allowed to return to ECF until has dialysis at hospital ( this was not known or conveyed to us until intra/post procedure). Initially they stated pt to go to [facility] for dialysis when I spoke with physicians transport they refuse this transport trip (per dispatcher Lucia and his adult manager Tomy). Spoke again with Samantha at [facility] and they now want her to go to our ER for emergent dialysis as they state it has been 6 days since last dialysis. Spoke with our ER charge manager Hyacinth and went over this situation and need for ER bed for pt - none available at present time and states she will call back when one available. Pt waiting at this time in holding area spot 2 and IR charge nurse updated [facility] 07-04-2025 Nurse Note Tunneled hd cath removed. [facility] 07-04-2025 Nurse Note IR Procedures: Rosa is here from a ECF for a tunneled hd cath exchange . Pt has verbalized understanding of the procedural instructions. Dr. Newby has spoken to pt. History, allergies, medications and lab results reviewed. Informed consent has been signed. Pt is on a monitor. Patient ready for the procedure. [facility] 07-04-2025 Note [facility] 07-04-[address] IV - charge manager notified. Limited History per paperwork brought - updated [employer] CREWMEMBER Melvi from anesthesia. RT Tamar was at bedside and switched pt from physicians transport vent to hers [facility] 07-03-2025 Hospital Discharg e instructions Re Maciel MD - 07/03/2025 5:03 PM EDT IR will do the dialysis port replacement outpatient. Her facility would need to get in contact with one of our coordinators to set up an appointment. Given the situation, they would get her in within the next day or 2. They need to call [phone] and speak with Roxie or Joseph. They can leave a voicemail if they're not in office and they will return the call during business hours. documented in this encounter [facility] 07-03-2025 Emergency department Note EMERGENCY DEPARTMENT ENCOUNTER Pt Name: Rosa Myers Birthdate 1950 Date of evaluation: 07/03/2025 ED Provider: Armando Redd DO CHIEF COMPLAINT Chief Complaint Patient presents with Other [facility], staff states that patient needs new dialysis [...] MDM and disposition. ED Course as of 07/03/25 1703 Tue Jul 03, 2025 1524 Sign out: dialysis access problem. Daily dialysis. Port was checked yesterday and discharged. However when they were doing dialysis today the machine was alarming. Sent back for evaluation of the port itself. Will check with nephrology to see if patient can get a course of dialysis today. [TC] 0511 Dr. Redd talked to nephrology and they state that patient will likely need replacement of the dialysis port. Dr. Redd contacted IR and they will come down to evaluate patient and try to get her scheduled for today for replacement of the dialysis port. [TC] ED Course User Index [TC] Re Maciel MD Diagnoses as of 07/03/25 1703 Dialysis complication, subsequent encounter External records reviewed: [...] Medicine Provider Armando Redd DO Resident 07/03/25 8950 [1] No past medical history on file. [2] No past surgical history on file. [3] No family history on file. [4] Social History Socioeconomic History Marital status: Single Tobacco Use Smoking status: Never Passive exposure: Past Smokeless tobacco: Never Social Drivers of Health Financial Resource Strain: Patient Unable To Answer (03/08/2025) Received from [facility] Medical Overall Financial Resource Strain (CARDIA) Difficulty of Paying Living Expenses: Patient unable to answer Food Insecurity: Patient Unable To Answer (03/08/2025) Received from [facility] Hunger Vital Sign Worried About Running Out of Food in the Last Year: Patient unable to answer Ran Out of Food in the Last Year: Patient unable to answer Transportation Needs: No Transportation Needs (06/01/2025) PRAPARE - Transportation Lack of Transportation (Medical): No Lack of Transportation (Non-Medical): No Physical Activity: Inactive (07/11/2024) Received from [facility] Exercise Vital Sign Days of Exercise per Week: 0 days Minutes of Exercise per Session: 0 min Stress: No Stress Concern Present (04/18/2025) Received from [facility]ational [facility] - Occupational Stress Questionnaire Feeling of Stress : Only a little Social Connections: Unknown (03/08/2025) Received from [facility] Medical Social Connection and Isolation Panel [NHANES] Frequency of Communication with Friends and Family: Patient unable to answer Frequency of Social Gatherings with Friends and Family: Patient unable to answer Attends Roman Catholic Services: Patient unable to answer Active Member [...] discussed the patient's management with other clinicians: Tool Crib Supervisor nephrology and interventional radiology All diagnostic, treatment, [...] dictating provider for clarification.) Gerardo Felder MD [facility] Gerardo Felder MD 07/03/25 1607 documented in this encounter [facility] 07-03-2025 Physician Emergency department Note EMERGENCY DEPARTMENT ENCOUNTER Pt Name: Rosa Myers Birthdate 1950 Date of evaluation: 07/03/2025 ED Provider: Armando Redd DO CHIEF COMPLAINT Chief Complaint Patient presents with Other Patient presents through triage from [facility], staff states that patient needs new dialysis [...] MDM and disposition. ED Course as of 07/03/25 1703 Tue Jul 03, 2025 1524 Sign out: dialysis access problem. Daily dialysis. Port was checked yesterday and discharged. However when they were doing dialysis today the machine was alarming. Sent back for evaluation of the port itself. Will check with nephrology to see if patient can get a course of dialysis today. [TC] 4012 Dr. Redd talked to nephrology and they state that patient will likely need replacement of the dialysis port. Dr. Redd contacted IR and they will come down to evaluate patient and try to get her scheduled for today for replacement of the dialysis port. [TC] ED Course User Index [TC] Re Maciel MD Diagnoses as of 07/03/25 1703 Dialysis complication, subsequent encounter External records reviewed: [...] Medicine Provider Armando Redd DO Resident 07/03/25 5760 [1] No past medical history on file. [2] No past surgical history on file. [3] No family history on file. [4] Social History Socioeconomic History Marital status: Single Tobacco Use Smoking status: Never Passive exposure: Past Smokeless tobacco: Never Social Drivers of Health Financial Resource Strain: Patient Unable To Answer (03/08/2025) Received from [facility] Medical Overall Financial Resource Strain (CARDIA) Difficulty of Paying Living Expenses: Patient unable to answer Food Insecurity: Patient Unable To Answer (03/08/2025) Received from [facility] Medical Hunger Vital Sign Worried About Running Out of Food in the Last Year: Patient unable to answer Ran Out of Food in the Last Year: Patient unable to answer Transportation Needs: No Transportation Needs (06/01/2025) PRAPARE - Transportation Lack of Transportation (Medical): No Lack of Transportation (Non-Medical): No Physical Activity: Inactive (07/11/2024) Received from [facility] Exercise Vital Sign Days of Exercise per Week: 0 days Minutes of Exercise per Session: 0 min Stress: No Stress Concern Present (04/18/2025) Received from [facility] - Occupational Stress Questionnaire Feeling of Stress : Only a little Social Connections: Unknown (03/08/2025) Received from [facility] Medical Social Connection and Isolation Panel [NHANES] Frequency of Communication with Friends and Family: Patient unable to answer Frequency of Social Gatherings with Friends and Family: Patient unable to answer Attends Roman Catholic Services: Patient unable to answer Active Member [...] Felder MD at 07/03/2025 4:04 PM EDT Sobrr Phone: 07-03-2025 Physician Emergency department Note Emergency [...] discussed the patient's management with other clinicians: Tool Crib Supervisor nephrology and interventional radiology All diagnostic, treatment, [...] clarification.) Gerardo Felder MD Acute Care [facility] Gerardo Felder MD 07/03/25 1607 [facility] 07-02-2025 Emergency department Note Discharge discussed with transport at this time. Patient leaves in stable condition. IV removed, gauze and tape placed over insertion site. [facility] 07-02-2025 Emergency department Note Discharge discussed with transport at this time. Patient leaves in stable condition. IV removed, gauze and tape placed over insertion site. breeder service technician at bedside - reports no issues flushing and pulling from catheter. EMERGENCY DEPARTMENT ENCOUNTER Pt Name: Rosa Myers Birthdate 1950 Date of evaluation: 07/02/2025 ED Provider: Re Maciel MD CHIEF COMPLAINT Chief Complaint Patient presents with Vascular Access Problem Pt arrives to ED via [facility] from [facility] for a clogged dialysis catheter. HISTORY OF PRESENT ILLNESS (Location/Symptom, Timing/Onset, Context/Setting, Quality, Duration, Modifying Factors, Severity) Note limiting factors. I wore appropriate PPE for the entirety of this encounter. HPI Rosa Myers is a 75 y.o. who presents to the emergency department for vascular access problem. Patient is coming in from [facility] for clogged dialysis catheter. Was brought [...] Family History[3] SOCIAL HISTORY Social History[4] SCREENINGS [place] Coma Scale Best Eye Response: Spontaneous Best Verbal Response: Oriented Best Motor Response: Follows commands [place] Coma Scale Score: 15 PHYSICAL EXAM ED [...] Patient Unable To Answer (03/08/2025) Received from [facility] Overall Financial Resource Strain (CARDIA) Difficulty of Paying Living Expenses: Patient unable to answer Food Insecurity: Patient Unable To Answer (03/08/2025) Received from [facility] Hunger Vital Sign Worried About Running Out of Food in the Last Year: Patient unable to answer Ran Out of Food in the Last Year: Patient unable to answer Transportation Needs: No Transportation Needs (06/01/2025) PRAPARE - Transportation Lack of Transportation (Medical): No Lack of Transportation (Non-Medical): No Physical Activity: Inactive (07/11/2024) Received from [facility] Exercise Vital Sign Days of Exercise per Week: 0 days Minutes of Exercise per Session: 0 min Stress: No Stress Concern Present (04/18/2025) Received from [facility] - Occupational Stress Questionnaire Feeling of Stress : Only a little Social Connections: Unknown (03/08/2025) Received from [facility] Medical Social Connection and Isolation Panel [NHANES] Frequency of Communication with Friends and Family: Patient unable to answer Frequency of Social Gatherings with Friends and Family: Patient unable to answer Attends Roman Catholic Services: Patient unable to answer Active Member [...] Date of Evaluation: 07/02/2025 ED Supervising Physician: Kelver Rand DO I personally evaluated Rosa Myers [...] was contacted and they did send the bomb technician down to evaluate the line. It [...] for clarification.) Klever Rand DO Acute Care [facility] Klever Rand DO 07/02/251925 documented in this encounter [facility] 07-02-2025 Hospital Discharg e instructions Re Maciel MD - 07/02/2025 5:23 PM EDT Thank you for visiting us at [facility] Emergency Department. You were seen today for CLOGGED DIALYSIS PORT. Our dialysis nurses were able to evaluate the port. The port flushes and draws well. At this time we feel that you are safe to go home. Please follow-up with your primary care provider within the next week. documented in this encounter [facility] 07-02-2025 Emergency department Note breeder service technician at bedside - reports no issues flushing and pulling from catheter. [facility] 07-02-2025 Physician Emergency department Note EMERGENCY DEPARTMENT ENCOUNTER Pt Name: Rosa Myers Birthdate 1950 Date of evaluation: 07/02/2025 ED Provider: Re Maciel MD CHIEF COMPLAINT Chief Complaint Patient presents with Vascular Access Problem Pt arrives to ED via [facility] from [facility] for a clogged dialysis catheter. HISTORY OF PRESENT ILLNESS (Location/Symptom, Timing/Onset, Context/Setting, Quality, Duration, Modifying Factors, Severity) Note limiting factors. I wore appropriate PPE for the entirety of this encounter. HPI Rosa Myers is a 75 y.o. who presents to the emergency department for vascular access problem. Patient is coming in from [facility] for clogged dialysis catheter. Was brought [...] Family History[3] SOCIAL HISTORY Social History[4] SCREENINGS [place] Coma Scale Best Eye Response: Spontaneous Best [...] 1654 HEMOGLOBIN(!): 8.2 Improved from prior [TC] 1654 Discussed with nursing to contact dialysis nurses [...] Patient Unable To Answer (03/08/2025) Received from [facility] Overall Financial Resource Strain (CARDIA) Difficulty of Paying Living Expenses: Patient unable to answer Food Insecurity: Patient Unable To Answer (03/08/2025) Received from [facility] Hunger Vital Sign Worried About Running Out of Food in the Last Year: Patient unable to answer Ran Out of Food in the Last Year: Patient unable to answer Transportation Needs: No Transportation Needs (06/01/2025) PRAPARE - Transportation Lack of Transportation (Medical): No Lack of Transportation (Non-Medical): No Physical Activity: Inactive (07/11/2024) Received from [facility] Exercise Vital Sign Days of Exercise per Week: 0 days Minutes of Exercise per Session: 0 min Stress: No Stress Concern Present (04/18/2025) Received from [facility] - Occupational Stress Questionnaire Feeling of Stress : Only a little Social Connections: Unknown (03/08/2025) Received from [facility] Medical Social Connection and Isolation Panel [NHANES] Frequency of Communication with Friends and Family: Patient unable to answer Frequency of Social Gatherings with Friends and Family: Patient unable to answer Attends Roman Catholic Services: Patient unable to answer Active Member [...] Violence - At Risk (03/07/2025) Received from [facility] Medical Domestic Abuse Assessment Do you feel [...] Rand DO at 07/02/2025 7:23 PM EDT [facility] 07-02-2025 Physician Emergency department Note Emergency Department [...] was contacted and they did send the bomb technician down to evaluate the line. It [...] [employer] Klever Rand DO 07/02/251925 Sobrr Phone: 06-21-2025 History of Presen t illness Narrative [facility] Nephrology Progress Note Subjective/ 75 y.o. year old female who we are seeing in consultation for ESRD and management of HD. Follows with Dr. Loredo and an outpatient HD schedule M- at [facility]. 06/06: TDC removed for suspicion of infection [...] 06/21/2025 Phosphorus: No results found for: "PHOS" / 75 y.o. female with ESRD N18.6 C. Difficile A04.72 Anemia D63.1 Volume overload E87.70 Hyponatremia E87.1 Chronic respiratory failure J96.10 Diabetes E11.22 Dependence on hemodialysis RECOMMENDATIONS: - [facility], follows with Dr. Loredo. Will maintain MWF [...] from the original note were not included. [facility], Pulmonary Medicine [address] [place], [place] [id number] Patient - Rosa Myers, Age - 75 y.o. - 1950 Room Number - [id number] A Consulting - Sharyn Amaya MD Primary Care Physician - No [facility] care provider on file[id number] Date of Admission - 06/01/2025 10:53 AM [...] -- -- 1.9 LFTs: Recent Labs 06/19/25 0606/20/25 0506 06/21/25 0421 AST 24 19 19 ALT 10 9 8 PROT 6.8 6.5 6.4 ALBUMIN 2.5* 2.3* 2.2* BILITOT 0.7 0.6 0.6 ALKPHOS 129 123 113 Glucose: Recent Labs 06/19/25 0629 06/19/25 1110 06/19/25 2016 06/20/25 0506 06/20/25 0622 06/20/25 1133 06/20/25 1623 [...] left thoracentesis with removal of 600 ml adcosta fluid, borderline exudate. Culture NGTD. Cytology not [...] Discharge planning: Stable to discharge back to [facility] from pulmonary standpoint. Case discussed with nurse [...] Nebulization, q6h PRN, Neelima Hanks APRN - BELLMAN atorvastatin (Lipitor) tablet 40 mg, 40 mg, Per G Tube, Daily, Grzegorz Chatterjee MD, 40 mg at 06/21/25 08 busPIRone (Buspar) tablet 5 mg, 5 mg, Per G Tube, TID, Grzegorz Chatterjee MD, 5 mg at 06/21/25 0828 carvedilol (Coreg) tablet 3.125 mg, 3.125 mg, Per G Tube, BID WC, Raine Etienne MD, 3.125 mg at 06/21/25 0828 cefepime (Maxipime) 1,000 mg in sodium chloride [...] RENITA Clifford CNP, 2,600 Units at 06/20/25 09 FLUoxetine (PROzac) capsule 20 mg, 20 mg, Per G Tube, Daily, Grzegorz Chatterjee MD, 20 mg at 06/21/25 08 furosemide (Lasix) tablet 20 mg, 20 mg, Per G Tube, Daily, Grzegorz Chatterjee MD, 20 mg at 06/21/25 0828 glucagon (human recombinant) injection 1 mg, 1 mg, IntraMUSCular, PRN, Sharyn Amaya MD glucose oral gel 15 g, 15 g, Oral, PRN, Sharyn Amaya MD heparin injection 1,200-2,000 Units, 1,200-2,000 Units, IntraCATHeter, PRN, RENITA Clifford CNP, 1,800 Units at 06/20/25 1302 heparin injection 1,200-2,000 Units, 1,200-2,000 Units, IntraCATHeter, PRN, Mi Singh APRN - BELLMAN, 1,700 Units at 06/20/25 1301 heparin injection 1,200-2,000 Units, 1,200-2,000 Units, IntraCATHeter, PRN, Yamil Newby MD heparin injection 1,200-2,000 Units, 1,200-2,000 Units, IntraCATHeter, PRN, Yamil Newby MD heparin injection 5,000 Units, 5,000 Units, SubCUTAneous, 2 times per day, Sharyn Amaya MD, 5,000 Units at 06/21/25 0829 HYDROmorphone (Dilaudid) injection 0.25 mg, 0.25 mg, IntraVENous, q4h PRN, Robert Jimenez MD insulin glargine (Lantus) injection 25 Units, 25 Units, SubCUTAneous, BID, Sharyn Amaya MD, 25 Units at 06/21/25 0829 Insulin Lispro (Humalog) injection 0-6 Units, 0-6 Units, SubCUTAneous, q6h, Grzegorz Chatterjee MD, 1 Units at 06/14/25 1202 ipratropium-albuterol (Duo-Neb) 0.5-2.5 mg/3 mL nebulizer solution 3 mL, 3 mL, Nebulization, TID, Neelima Hanks APRN - RENEE, 3 mL at 06/21/25 0830 LORazepam (Ativan) tablet 0.25 mg, 0.25 mg, Per G Tube, q8h PRN, Diana Zabala APRN - [facility]MAN melatonin tablet 3 mg, 3 mg, Per G Tube, Nightly PRN, Diana EzzieCEASARN - BELLMAN miconazole (Micotin) 2 % powder, , Topical, BID, Patrica Weinstein APRN - RENEE, Given at 06/21/25 0828 midodrine (Proamatine) tablet 10 mg, 10 mg, Per G Tube, TID, Grzegorz Chatterjee MD, 10 mg at 06/21/25 0828 minocycline capsule 100 mg, 100 mg, Oral, BID, Kishore Wolff MD, 100 mg at 06/21/25 0828 pantoprazole (ProtoNix) 40 mg in sodium chloride (PF) 0.9 % 10 mL injection, 40 mg, IntraVENous, Nightly, Grzegorz Chatterjee MD, 40 mg at 06/20/25 2122 polyethylene glycol (PEG) 3350 (Miralax) packet 17 [...] Topical, PRN, RENITA Gtz CNP, Given at 06/20/252122 stomahesive in petrolatum (ET Mix), , Topical, [...] chloride, sodium chloride 0.9%, stomahesive in petrolatum [facility] Respiratory Care Department Progress Note Spontaneous Awakening [...] 100 % (06/21/25538) Suctioning/Secretions Secretion Amount: Scant (06/21/25434) Secretion Color: White (06/20/252347) Secretion Consistency: Thick (06/20/252347) ABG results No results for input(s): "PHART", "TWN8XYR", "PO2ART", "EPX7EAJ", "SO2ART", "N5YWRKGO" in the last 72 hours. Does this patient meet criteria for termination of mechanical ventilation No - Chronic Vent Dependent Name of physician notified via secure chat or in person : na (NA if patient did not meet criteria) Comments: Thank you for involving Respiratory in the care of this patient, Images from the original note were not included. [facility] - Infectious Diseases Attending Progress Note Subjective: [...] -- 65 -- 100 % -- 06/20/25 0825 -- -- -- 63 18 99 % -- 06/20/25 0329 -- -- -- 65 18 99 % -- 06/19/25 2315 -- -- -- 66 23 99 % [...] 1439 Aerobic and Anaerobic Culture with Stain [[id number]] (Abnormal) Wound from Trachea Final result Component Value No component results 06/09/2025 1411 06/13/2025 1002 Culture, Aerobic Bacteria with Gram Stain [[id number]] (Abnormal) Wound from Trachea Final result Component Value Culture Few respiratory dave present. Rare Pseudomonas aeruginosa Abnormal Gram Stain Result Many Polymorphonuclear leukocytes per low power field No organisms seen Collected Updated Procedure Result Status 06/07/2025 1129 06/07/2025 1142 Aerobic and Anaerobic Culture with Stain [[id number]] Body Fluid from Pleural Cavity, Left In process Component Value No component results 06/07/2025 1129 06/09/2025 0748 Culture, Aerobic Bacteria with Gram Stain [[id number]] Body Fluid from Pleural Cavity, Left Preliminary result Component Value Culture No growth at 48 hours P Gram Stain Result Few Polymorphonuclear leukocytes per low power field P No organisms seen P 06/07/2025 1129 06/07/2025 1142 Anaerobic culture [[id number]] Body Fluid from Pleural Cavity, Left In process Component Value No component results 06/07/2025 1025 06/09/2025 1301 Blood culture Site #2 - Suspected Infection [[id number]] Blood, Venous Preliminary result Component Value Blood Culture No growth at 48 hours P 06/07/2025 1014 06/09/2025 1301 Blood culture Site #1 - Suspected Infection [[id number]] Blood, Venous Preliminary result Component Value Blood Culture No growth at 48 hours P 06/06/2025 1732 06/08/2025 1413 Respiratory culture and Stain [[id number]] (Abnormal) Sputum Preliminary result Component Value Respiratory [...] 06/06/2025 1732 06/07/2025 1158 Pneumonia PCR Panel [[id number]] (Abnormal) Sputum Final result Component Value Staphylococcus [...] 06/06/2025 1429 06/09/2025 0801 Culture, Cath Tip [[id number]] (Abnormal) Foreign Body from Cannula Final result Component Value Culture >15 CFU Serratia marcescens Abnormal This organism possesses an ampC beta-lactamase. For serious infections outside of the urinary tract, third generation cephalosporins may not be effective, even if test results indicate the organism is susceptible. 06/02/2025 1736 06/02/2025 205 Gastrointestinal PCR Panel [[id number]] Stool from Per Rectum Final result Component [...] DIFFICILE by PCR with Reflex to EIA [[id number]] (Abnormal) Stool from Per Rectum Final result Component Value C. difficile toxin PCR Detected Abnormal 06/02/2025173506/02/20252207 C. difficile Toxins EIA [[id number]] (Abnormal) Stool from Per Rectum Final result Component Value C difficile Toxins A+B, EIA Positive Abnormal Lines: RIJ HD cath (06/12/25) Radiography/Echo/Other: XR chest 1 view [[id number]] Collected: 06/08/251401 Order Status: Completed Updated: 06/08/251404 [...] 06/08/2025 2:04 PM EDT US guided thoracentesis [[id number]] Collected: 06/07/25 1409 Order Status: Completed Updated: 06/07/251409 Narrative: [facility] MYERS : 1950 [id number] Ex[facility] Date/Time: 06/07/2025 11:01 Procedure: US GUIDED THORACENTESIS Ordering Provider: WADDLEL CANDICE Reason For Exam: pleural effusion PROCEDURE: [...] 2:09 PM EDT XR chest 1 view [[id number]] Collected: 06/06/252039 Order Status: Completed Updated: 06/06/252042 [...] PM EDT IR CVC tunneled catheter removal [[id number]] Collected: 06/06/25 154 Order Status: Completed Updated: [...] 3:46 PM EDT XR chest 1 view [[id number]] Collected: 06/01/25 1217 Order Status: Completed Updated: [...] SBT indicated due to PT vent dependent. [facility] Nephrology Progress Note Subjective/ 75 y.o. year old female who we are seeing in consultation for ESRD and management of HD. Follows with Dr. Loredo and an outpatient HD schedule M-F at [facility]. 06/06: TDC removed for suspicion of infection [...] PRN Meds:PRN Meds[3] Data/ Recent Labs 06/18/25 0606/19/25 0606/20/25 0506 WBC 6.3 7.6 6.1 HGB 7.6* 7.8* 7.8* HCT 24.4* 25.0* 25.2* MCV 85.6 85.9 85.4 PLT 237 250 240 Recent Labs 06/18/25 0606/19/25 0629 06/20/25 0506 NA 133* 135* 135* [...] hemodialysis RECOMMENDATIONS: - HD schedule M-F at [facility], follows with Dr. Loredo. Tolerating HD today [...] Fluid Accumulation: No significant fluid accumulation Extremities Institution Director Strength: Not Performed Nutrition Assessment: Pt continues [...] tomorrow 06/21 then possible dc to facility ([facility] Pt is s/p left thoracentesis 06/07 with 600ml dacosta fluid removed. Estimated Daily Nutrient Needs: Energy Requirements Based On: Kcal/kg Weight Used for Energy Requirements: [place] Weight for Energy Calculation (kg): 57 kg Total Energy Requirements (kcals/day): 3795-2941 kcals (25-30 kcals/kg) Weight Used for Protein Requirements: [place] Weight in Kg Used for Protein Requirements: [...] 226# 05/25/25) % Weight Change (Calculated): 1.4 [place] Body Weight (lbs) (Calculated): 125 lbs [place] Body Weight (Kg) (Calculated): 57 kg % [place] Body Weight (Calculated): 183.2 % BMI (kg/m2) [...] Planning: Enteral Nutrition [address]eta Steve [address] Contact: *[phone] or via Secure Chat Images from the original note were not included. [facility], Pulmonary Medicine [address] [place] [id number] Patient - Rosa Myers, Age - 75 y.o. - 1950 Room Number - [id number] A Consulting - Sharyn Amaya MD Primary Care Physician - No primary care provider on file. N - [phone] [facility] # - [id number] Date of Admission - 06/01/2025 10:53 AM [...] stable from pulmonary standpoint. Discharge back to [facility] once antibiotics completed. Case discussed with [...] Daily, Grzegorz Chatterjee MD, 40 mg at 06/20/2503 busPIRone (Buspar) tablet 5 mg, 5 mg, Per G Tube, TID, Grzegorz Chatterjee MD, 5 mg at 06/20/25901 carvedilol (Coreg) tablet 3.125 mg, 3.125 mg, Per G Tube, BID WC, Raine Etienne MD, 3.125 mg at 06/20/25901 cefepime (Maxipime) 1,000 mg in sodium chloride [...] day on Wednesday, Mi Singh APRN - BELLMAN, 2,600 Units at 06/20/25 09 FLUoxetine (PROzac) capsule 20 mg, 20 mg, Per G Tube, Daily, Grzegorz Chatterjee MD, 20 mg at 06/20/25902 furosemide (Lasix) tablet 20 mg, 20 mg, Per G Tube, Daily, Grzegorz Chatterjee MD, 20 mg at 06/20/25901 glucagon (human recombinant) injection 1 mg, 1 mg, IntraMUSCular, PRN, Sharyn Amaya MD glucose oral gel 15 g, 15 g, Oral, PRN, Sharyn Amaya MD heparin injection 1,200-2,000 Units, 1,200-2,000 Units, IntraCATHeter, PRN, Mi Singh APRN - RENEE, 1,800 Units at 06/18/25 1338 heparin injection 1,200-2,000 Units, 1,200-2,000 Units, IntraCATHeter, PRN, Mi Singh APRN - RENEE, 1,700 Units at 06/18/25 1338 heparin injection [...] Topical, BID, RENITA Gtz CNP, Given at 06/20/25 09 midodrine (Proamatine) tablet 10 mg, 10 mg, Per G Tube, TID, Grzegorz Chatterjee MD, 10 mg at 06/20/25 0903 minocycline capsule 100 mg, 100 mg, Oral, BID, Kishore Wolff MD, 100 mg at 06/20/25 0902 pantoprazole (ProtoNix) 40 mg in sodium chloride (PF) 0.9 % 10 mL injection, 40 mg, IntraVENous, Nightly, Grzegorz Chatterjee MD, 40 mg at 06/19/25 2020 polyethylene glycol (PEG) 3350 (Miralax) packet 17 [...] Mix), , Topical, 3 times per day, REINTA Gtz CNP, Given at 06/20/25 0532 [4] PRN medications: acetaminophen OR acetaminophen, albumin human, albuterol, dextrose 5 % and sodium chloride 0.45 %, dextrose, dextrose, glucagon (rDNA), glucose, heparin, heparin, heparin, heparin, HYDROmorphone, LORazepam, melatonin, polyethylene glycol (PEG) 3350, promethazine OR promethazine OR promethazine, sodium chloride, sodium chloride, sodium chloride, sodium chloride 0.9%, stomahesive in petrolatum Hospitalist Progress Note 06/20/[id number]: Please secure chat me for patient care issues. [phone]: Please secure chat [facility] Hospitalist for any issues. Subjective: Admit [...] Nepro w/CARB Steady; Continuous; No; 40; 40 @[id number]@ 24HR INTAKE/OUTPUT: Intake/Output Summary (Last 24 hours) [...] -June 21 - Location -[facility] [place] - Pending the following -completion of antibiotics Total time spent (which include face to face and non face to face encounters) : 54 minutes Toxic drug monitoring/narrow therapeutic index drug monitoring : # Drug name : # Route administered : # Method of monitoring : No emergency contact information on file. Sharyn Amaya MD Division of Hospitalist Medicine Acute care [facility] PAGER: Epic chat [1] No past medical [...] petrolatum, , Topical, 3 times per day [facility] Respiratory Care Department Progress Note Spontaneous Awakening Trial Wean Screen SpO2>/=88%: Yes (06/20/25328) FiO2</=50%: Yes (06/20/25328) PEEP </=8cmH2O: Yes (06/20/25328) HR <140 BPM: Yes (06/20/25328) RR </= 35 breaths/min: Yes (06/20/25328) MAP >/= 65mmHg: Yes (06/20/25328) Arterial pH >7.30: Yes (06/19/25431) Safety Screen Spontaneous Breathing Trial (SBT - RT) : SBT Held - Chronic Ventilator Dependent (06/20/25328) Spontaneous Breathing Trial Vent Settings Vent Mode: Assist control (06/19/252012) Mandatory Type: VC+ (06/19/252012) Resp Rate (Set): 14 (06/19/251445) Vt (Set, mL): 450 mL (06/19/251445) FiO2 (%): 30 % (06/19/251445) PEEP/CPAP (cm H2O): 5 cm H20 (06/19/251445) Inspiratory Time (sec): 0.9 sec (06/19/251445) Vitals MAP (mmHg): 77 (06/19/252012) Heart Rate: 64 (06/19/25 1711) Resp: 22 (06/19/251445) SpO2: 98 % (06/19/251445) Suctioning/Secretions Secretion Amount: Small (06/19/252014) Secretion Color: Yellow (06/19/25819) Secretion Consistency: Thick (06/19/25819) ABG results No results for input(s): "PHART", "DWD9ZGD", "PO2ART", "AXJ0VLB", "SO2ART", "B4YGTKNX" in the last 72 hours. Does this patient meet criteria for termination of mechanical ventilation No - Chronic Vent Dependent Comments: Thank you for involving Respiratory in the care of this patient, [facility] Respiratory Care Department Progress Note As [...] Respiratory in the care of this patient, [facility] Nephrology Progress Note Subjective/ 75 y.o. year old female who we are seeing in consultation for ESRD and management of HD. Follows with Dr. Loredo and an outpatient HD schedule M- at [facility]. 06/06: TDC removed for suspicion of infection [...] Pulse: 68 63 63 64 Resp: 16 Temp: 36.6 C (97.8 F) TempSrc: Axillary [...] Meds[2] PRN Meds:PRN Meds[3] Data/ Recent Labs 06/17/2540906/18/25 0647 06/19/25 0629 WBC 7.8 6.3 7.6 HGB 8.4* 7.6* 7.8* HCT 26.6* 24.4* 25.0* MCV 84.4 85.6 85.9 PLT 230 237 250 Recent Labs 06/17/2540906/18/25 0647 06/19/25 0629 NA 135* 133* 135* [...] hemodialysis RECOMMENDATIONS: - [facility], follows with Dr. Loredo. 1 L UF [...] from the original note were not included. [facility], Pulmonary Medicine [address] [place], [place] [id number] Patient - Rosa Myers, Age - 75 y.o. - 1950 Room Number - 222-04/222-04 A Consulting - Sharyn Amaya MD Primary Care Physician - No primary care provider on file[id number] Date of Admission - 06/01/2025 10:53 AM Hospital Day - 18 Problem List[1] Chief Complaint: Anemia Rosa Myers [...] stable from pulmonary standpoint. Discharge back to [facility] [place] once antibiotics completed. Case discussed with nurse [...] 2.5 mg, Nebulization, q6h PRN, Neelima Hanks SOCK LINING STITCHER - BELLMAN atorvastatin (Lipitor) tablet 40 mg, 40 mg, [...] day on Wednesday, Mi Singh APRN - BELLMAN, 2,600 Units at 06/18/25 0855 FLUoxetine (PROzac) [...] Units, IntraCATHeter, PRN, Mi Singh APRN - RENEE, 1,800 Units at 06/18/25 1338 heparin injection 1,200-2,000 Units, 1,200-2,000 Units, IntraCATHeter, PRN, Mi Singh APRN - RENEE, 1,700 Units at 06/18/25 1338 heparin injection [...] q4h, RENITA Tyler CNP, 3 mL at 06/19/25 0722 LORazepam (Ativan) tablet 0.25 mg, 0.25 mg, Per G Tube, q8h PRN, RENITA Schwartz CNP melatonin tablet 3 mg, 3 mg, Per G Tube, Nightly PRN, Diana Zabala, SOCK LINING STITCHER - BELLMAN miconazole (Micotin) 2 % powder, , Topical, BID, Patrica Weinstein APRN - BELLMAN, Given at 06/19/25 0952 midodrine (Proamatine) tablet 10 mg, 10 mg, Per G Tube, TID, Grzegorz Chatterjee MD, 10 mg at 06/19/25 0951 minocycline capsule 100 mg, 100 mg, Oral, BID, Kishore Wolff MD, 100 mg at 06/19/25 0950 pantoprazole (ProtoNix) 40 mg in sodium chloride (PF) 0.9 % 10 mL injection, 40 mg, IntraVENous, Nightly, Grzegorz Chatterjee MD, 40 mg at 06/18/252058 polyethylene glycol (PEG) 3350 (Miralax) packet 17 [...] 4 mL, 4 mL, Nebulization, BID, Neelima RENITA Hanks CNP, 4 mL at 06/19/25 0726 stomahesive [...] from the original note were not included. [facility] Wound Care Progress Note Rosa Myers AGE: 75 y.o. GENDER: female : 1950 Subjective: HISTORY of PRESENT ILLNESS HPI Rosa Myers is a 75 y.o. female who presents for a wound follow up. HPI: Ms. Myers is a 75 y.o. female who presents to the emergency department with chief complaint of abnormal blood counts. Patient was sent to us from her shelter for lab drawl that shows hemoglobin of [...] to follow Recommend to follow up at [facility] wound care center after hospital discharge. Any questions or concerns please secure chat "[facility] wound/ostomy". I personally obtained the soto and [...] as needed (forehead itching). Hospitalist Progress Note 06/19/20256998611-7920: Please secure chat me for patient care issues. [phone]: Please secure chat [facility] night Hospitalist for any issues. Subjective: Admit Date: 06/01/2025 PCP: No primary care provider on file. Room#: 222-04/222-04 A Brief History:Rosa Myers is a 75 y.o. female who presents with Anemia She is a patient from [facility], chronic tracheostomy and chronic vent therapy, [...] Nepro w/CARB Steady; Continuous; No; 40; 40 @WUAH1QBQNRU@ 24HR INTAKE/OUTPUT: Intake/Output Summary (Last 24 hours) at 06/19/2025 0954 Last data filed at 06/19/2025 0731 Gross per 24 hour Intake 2138 ml Output -- Net 2138 ml Past Medical History: Medical History[1] LABS: CBC: Recent Labs 06/17/25 04106/18/25 0647 06/19/25 0629 WBC 7.8 6.3 7.6 RBC 3.15* 2.85* 2.91* HGB 8.4* 7.6* 7.8* HCT 26.6* 24.4* 25.0* MCV 84.4 85.6 85.9 RDW 17.8* 18.2* 18.2* PLT 230 237 250 BMP: Recent Labs 09/21/40906/18/25 0647 06/19/25 0629 NA 135* 133* 135* K 4.1 4.4 4.0 CL 99 98 99 CO2 24 24 27 BUN 33* 46* 23 CREATININE 2.72* 3.41* 2.33* GLUCOSE 62* 119* 126* CALCIUM 9.3 8.9 9.1 ANIONGAP 12 11 9 LIVER PROFILE: Recent Labs 06/17/25 0410 06/18/25 0647 06/19/25 [...] Sharyn Amaya MD Division of Hospitalist Medicine Hypert[facility] PAGER: Epic chat [1] No past medical [...] petrolatum, , Topical, 3 times per day [facility] Respiratory Care Department Progress Note Spontaneous Awakening [...] Heart Rate: 68 (06/18/25 1353) Resp: 18 (06/18/252140) SpO2: 97 % (06/18/252140) Suctioning/Secretions Secretion Amount: Small (06/18/252129) Secretion Color: White, Yellow (06/18/251648) Secretion Consistency: Thick (06/18/251648) ABG results No results for input(s): "PHART", "WKT4HNP", "PO2ART", "GNQ5VGP", "SO2ART", "T7BUKBPB" in the last 72 hours. Does this patient meet criteria for termination of mechanical ventilation No - Chronic Vent Dependent Name of physician notified via secure chat or in person : (NA if patient did not meet criteria) Comments: Thank you for involving Respiratory in the care of this patient, Hospitalist Progress Note 06/18/20256997962-1341: Please secure chat me for patient care issues. [phone]: Please secure chat [facility] Hospitalist for any issues. Subjective: Admit Date: 06/01/2025 PCP: No primary care provider on file. Room#: 222-04/222-04 A Brief History:Rosa Myers is a 75 y.o. female who presents with Anemia She is a patient from [facility], chronic tracheostomy and chronic vent therapy, on hemodialysis Consults : Pulmonology Chief Complaint : Currently having a dialysis session, tracheostomy tube being suction Left heel ulcer-wound care following Diet, tube feeding no tray PEG; Nepro w/CARB Steady; Continuous; No; 40; 40 @YLNP1IUVFND@ 24HR INTAKE/OUTPUT: No intake or output data [...] Sharyn Amaya MD Division of Hospitalist Medicine [facility] PAGER: Jeancarlos velasco [1] No past medical history on file. [...] petrolatum, , Topical, 3 times per day [facility] Nephrology Progress Note Subjective/ 75 y.o. year old female who we are seeing in consultation for ESRD and management of HD. Follows with Dr. Loredo and an outpatient HD schedule M- at [facility]. 06/06: TDC removed for suspicion of infection [...] hemodialysis RECOMMENDATIONS: - HD schedule M- at [facility], follows with Dr. Loredo. 600 mL removed [...] the above assessment and plan with the [employer] DEFENSE CREWMEMBER. I agree with above note. HD MWF. [facility] Geriatric Medicine Inpatient Consult Service Admission Date: [...] illnesses --Since March, she has been at [facility] --candelaria lift at baseline -Per her shelter facesheet, her Yamil and son Marcell are her emergency contacts 06/18: Anticipate return to ECF once medically improved OK to discharge to ECF from geriatric perspective once cleared medically Follow-up: prn, please page with any questions/issues Subjective Chief Complaint: Chief Complaint Patient presents with Other Sent from [facility] for low HGB[facility] [...] who was admitted to acute [facility] from [facility] ([facility]) for severe anemia (hgb 6.5). She [...] 3.23 06/14/2025 Lab Results Component Value Date QYQVKNAR19 1,032 (H) 06/02/2025 No results found for: [...] Units, IntraCATHeter, PRN, Mi Singh APRN - BELLMAN, 1,800 Units at 06/15/25 1303 heparin injection 1,200-2,000 Units, 1,200-2,000 Units, IntraCATHeter, PRN, Mi Singh APRN - BELLMAN, 1,700 Units at 06/15/25 1303 heparin injection [...] mL, Nebulization, q4h, Neelima Hanks, RENITA - BELLMAN, 3 mL at 06/18/25 0824 LORazepam (Ativan) tablet 0.25 mg, 0.25 mg, Per G Tube, q8h PRN, Diana Zabala APRN - RENEE melatonin tablet 3 mg, 3 mg, Per G Tube, Nightly PRN, Diana EzjayeRENITA - BELLMAN miconazole (Micotin) 2 % powder, , Topical, BID, RENITA Gtz CNP, Given at 06/18/25 0844 midodrine (Proamatine) tablet 10 mg, 10 mg, Per G Tube, TID, Grzegorz Chatterjee MD, 10 mg at 06/18/25 0844 minocycline capsule 100 mg, 100 mg, Oral, BID, Kishore Wolff MD, 100 mg at 06/18/25 0844 pantoprazole (ProtoNix) 40 mg in sodium chloride [...] mL, 4 mL, Nebulization, BID, RENITA Tyler BELLMAN, 4 mL at 06/18/25 0832 stomahesive in petrolatum (ET Mix), , Topical, PRN, RENITA Gtz CNP, Given at 06/08/25 1857 stomahesive in petrolatum (ET Mix), , Topical, 3 times per day, RENITA Gtz CNP, Given at 06/18/25 0459 Images from the original note were not included. [facility] Wound Care Progress Note Rosa Myers AGE: 75 y.o. GENDER: female : 1950 Subjective: HISTORY of PRESENT ILLNESS HPI Rosa Myers is a 75 y.o. female who presents for a wound follow up. HPI: Ms. Myers is a 75 y.o. female who presents to the emergency department with chief complaint of abnormal blood counts. Patient was sent to us from her shelter for lab drawl that shows hemoglobin of [...] to follow Recommend to follow up at [facility] wound care center after hospital discharge. Any questions or concerns please secure chat "[facility] wound/ostomy". I personally obtained the soto and [...] from the original note were not included. [facility], Pulmonary Medicine [address] [place] [id number] Patient - Rosa Myers, Age - 75 [...] Full Code Discharge planning: Discharge back to [facility] once antibiotics completed. Case discussed with [...] , Raine Etienne MD, 3.125 mg at 06/18/25 0844 cefepime (Maxipime) 1,000 mg in sodium chloride 0.9 % 50 mL IVPB, 1,000 mg, IntraVENous, q12h, Geno Waddell MD, Stopped at 06/18/25 0639 chlorhexidine (Hibiclens) 4 % solution, , Topical, Daily, Anujm Fam MD, Given at 06/17/25 1428 dextrose [...] BID, RENITA Gtz CNP, Given at 06/18/25 0844 midodrine (Proamatine) tablet 10 mg, 10 mg, Per G Tube, TID, Grzegorz Chatterjee MD, 10 mg at 06/18/25 0844 minocycline capsule 100 mg, 100 mg, Oral, BID, Kishore Wolff MD, 100 mg at 06/18/25 0844 pantoprazole (ProtoNix) 40 mg in sodium chloride [...] chloride, sodium chloride 0.9%, stomahesive in petrolatum [facility] Respiratory Care Department Progress Note Spontaneous Awakening [...] ABG results No results for input(s): "PHART", "SZH5AOJ", "PO2ART", "CBA1SBD", "SO2ART", "X9YSVYPA" in the last 72 hours. Does this patient meet criteria for termination of mechanical ventilation No - Chronic Vent Dependent Name of physician notified via secure chat or in person : na (NA if patient did not meet criteria) Comments: Thank you for involving Respiratory in the care of this patient, [facility] Nephrology Progress Note Subjective/ 75 y.o. year old female who we are seeing in consultation for ESRD and management of HD. Follows with Dr. Loredo and an outpatient HD schedule M-F at [facility]. 06/06: TDC removed for suspicion of infection [...] hemodialysis RECOMMENDATIONS: - HD schedule M-F at [facility], follows with Dr. Loredo. Tolerated HD Wednesday [...] Notes reviewed and plan discussed with the [employer] DEFENSE CREWMEMBER. Agree with above note except Any variance is noted below. Lynn Powell MD [facility] [phone] [facility] Hospitalist Progress note [phone]: Please page me ([phone]) for patient care issues. [phone]: Please page [facility] Hospitalist for any issues. Subjective: Admit [...] 12 10 12 LIVER PROFILE: Recent Labs 06/15/2522406/16/25 0545 06/17/25 0410 AST 26 26 28 [...] MD Division of Hospitalist Medicine Inpatient Medical Services/[facility] [1] [2] atorvastatin, 40 mg, Per [...] petrolatum, , Topical, 3 times per day [facility] Respiratory Care Department Progress Note Spontaneous Awakening [...] ABG results No results for input(s): "PHART", "NOC4ZJA", "PO2ART", "FFZ9ZBQ", "SO2ART", "H6KILDFU" in the last 72 hours. Does this patient meet criteria for termination of mechanical ventilation No - Chronic Vent Dependent Name of physician notified via secure chat or in person : na (NA if patient did not meet criteria) Comments: Thank you for involving Respiratory in the care of this patient, [facility] Nephrology Progress Note Subjective/ 75 y.o. year old female who we are seeing in consultation for ESRD and management of HD. Follows with Dr. Loredo and an outpatient HD schedule M- at [facility]. 06/06: TDC removed for suspicion of infection [...] Meds:PRN Meds[3] Data/ Recent Labs 06/14/25 0402 06/15/2522406/16/25 0545 WBC 5.6 6.1 6.2 HGB 8.5* 7.9* 7.6* HCT 27.2* 25.7* 24.7* MCV 84.7 85.4 86.1 PLT 222 233 217 Recent Labs 06/14/25 0402 06/15/25 0225 06/16/25 0545 NA 138 134* 137 K 3.5 3.4* 4.4 CL 99 97* 100 CO2 27 GLUCOSE 100 80* 131* MG 1.9 [...] hemodialysis RECOMMENDATIONS: - HD schedule M-F at [facility], follows with Dr. Loredo. Tolerated HD yesterday, [...] Notes reviewed and plan discussed with the [employer] DEF[employer] CREWMEMBER. Agree with above note except Any variance is noted below. Lynn Powell MD [facility] [phone] [facility] Hospitalist Progress note [phone]: Please page me ([phone]) for patient care issues. [phone]: Please page [facility] Hospitalist for any issues. Subjective: Admit [...] Net 1736 ml LABS: CBC: Recent Labs 06/14/25 04006/15/2522406/16/25 0545 WBC 5.6 6.1 6.2 RBC 3.21* 3.01* 2.87* HGB 8.5* 7.9* 7.6* HCT 27.2* 25.7* 24.7* MCV 84.7 85.4 86.1 RDW 18.0* 17.7* 18.2* PLT 222 233 217 BMP: Recent Labs 06/14/2540106/15/2522406/16/25 0545 NA 138 134* 137 K 3.5 3.4* 4.4 CL 99 97* 100 CO2 28 25 27 BUN 19 31* 20 CREATININE 1.93* 2.80* 1.89* GLUCOSE 100 80* 131* CALCIUM 9.0 8.8 8.6* ANIONGAP 11 12 10 LIVER PROFILE: Recent Labs 06/14/2540106/15/2522406/16/25 0545 AST 27 26 26 ALT 16 [...] MD Division of Hospitalist Medicine Inpatient Medical Services/[facility] [1] [2] atorvastatin, 40 mg, Per G Tube, Daily busPIRone, 5 mg, Per G Tube, TID carvedilol, 3.125 mg, Per G Tube, BID WC cefepime, 1,000 mg, IntraVENous, q12h chlorhexidine, , Topical, Daily epoetin alpha-epbx, 25 Units/kg, SubCUTAneous, Once per day on Dom Wednesday Price FLUoxetine, 20 mg, Per G Tube, Daily [...] petrolatum, , Topical, 3 times per day [facility] Respiratory Care Department Progress Note Spontaneous Awakening [...] ABG results No results for input(s): "PHART", "TXM6BWM", "PO2ART", "GFA0XWJ", "SO2ART", "Y5HLOBQC" in the last 72 hours. Does this [...] (temporalis), Thigh (quadraceps) Fluid Accumulation: Severe Extremities Institution Director Strength: Normal chopper feeder strength Nutrition Assessment: 75 year old woman who remains admitted to [facility] ICU (for vent support, being followed by [facility]) following routine blood draw showing anemia at [facility]. +2 u PRBC since admit. Nephrology consulted and supporting for ESRD and management on inpatient HD. TDC was removed on 06/06 due to infection, +new TDC placed on 06/12. Continues a MWF HD schedule while admitted, -2000 mL removed and well tolerated on 06/13 (M-F schedule at [facility]). Pulmonology supporting, +trach to vent. ID consulted and supporting for PNA- Pseudomonas aeruginosa, Serratia marcescens, and stenotrophomonas maltophilia; CDAD, and Serratia marcescens of former TDC. 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 Remains admitted to [facility] through 06/21 for IV antibiotics- as facility cannot accept back. Sitting up in bed with HD running at time of re-assessment. EN continues to goal, denies: pain, nausea, GI distress. Estimated Daily Nutrient Needs: Energy Requirements Based On: Kcal/kg Weight Used for Energy Requirements: [place] Weight for Energy Calculation (kg): 57 kg Total Energy Requirements (kcals/day): 7141-7656 (25-30 kcal/kg IBW) Weight Used for Protein Requirements: [place] Weight in Kg Used for Protein Requirements: [...] 226# 05/25/25) % Weight Change (Calculated): 1.4 [place] Body Weight (lbs) (Calculated): 125 lbs [place] Body Weight (Kg) (Calculated): 57 kg % [place] Body Weight (Calculated): 183.2 % BMI (kg/m2) [...] Enteral Nutrition Raquel Brady RDN, LDN, Contact: *[phone] [facility] Hospitalist Progress note [phone]: Please page ms ([phone]) for patient care issues. [phone]: Please page [facility] Hospitalist for any issues. Subjective: Admit [...] ml LABS: CBC: Recent Labs 06/13/25 0433 06/14/2540106/15/25 022 WBC 7.2 5.6 6.1 RBC 3.19* 3.21* 3.01* HGB 8.4* 8.5* 7.9* HCT 26.6* 27.2* 25.7* MCV 83.4 84.7 85.4 RDW 17.8* 18.0* 17.7* PLT 235 222 233 BMP: Recent Labs 06/13/25 0433 06/14/25 04006/15/25224 NA 134* 138 134* K 3.5 3.5 3.4* CL 97* 99 97* CO2 BUN 39* 19 31* CREATININE 3.37* 1.93* 2.80* GLUCOSE 56* 100 80* CALCIUM 9.3 9.0 8.8 ANIONGAP 12 11 12 LIVER PROFILE: Recent Labs 06/13/25 0433 06/14/25 0402 06/15/25 0225 AST 22 27 26 ALT 12 16 [...] MD Division of Hospitalist Medicine Inpatient Medical Services/[facility] [1] [2] atorvastatin, 40 mg, Per [...] petrolatum, , Topical, 3 times per day [facility] Nephrology Progress Note Subjective/ 75 y.o. year old female who we are seeing in consultation for ESRD and management of HD. Follows with Dr. Loredo and an outpatient HD schedule M- at [facility]. 06/06: TDC removed for suspicion of infection [...] Meds[2] PRN Meds:PRN Meds[3] Data/ Recent Labs 06/13/25 0433 06/14/25 0402 06/15/25 0225 WBC 7.2 5.6 6.1 HGB 8.4* 8.5* 7.9* HCT 26.6* 27.2* 25.7* MCV 83.4 84.7 85.4 PLT 235 222 233 Recent Labs 06/13/25 0433 06/14/25 0402 06/15/25 0225 NA 134* 138 134* K 3.5 3.5 3.4* CL 97* 99 97* CO2 25 GLUCOSE 56* 100 80* MG 2.0 [...] hemodialysis RECOMMENDATIONS: - HD schedule M-F at [facility], follows with Dr. Loredo. 2 L [...] the above assessment and plan with the [employer] DEF[employer] CREWMEMBER. I agree with above note. HD MWF. [facility] Geriatric Medicine Inpatient Consult Service Admission Date: [...] illnesses --Since March, she has been at [facility] --candelaria lift at baseline -Per her shelter facesheet, her Yamil and son Marcell are [...] who was admitted to acute care from residential care ([facility]) for severe anemia (hgb 6.5). She [...] glucose 80 Tsh within normal limits Reviewed MAR, has not received the prn ativan that [...] 543 ms QTC Interval 552 ms P [place] 0 degrees QRS [place] -11 degrees T Wave [place] 188 degrees CA Interval 65 ms POCT glucose meter Collection [...] 3.23 06/14/2025 Lab Results Component Value Date [id number] 1,032 (H) 06/02/2025 No results found for: [...] 2.5 mg, Nebulization, q6h PRN, Neelima Hanks SOCK LINING STITCHER - BELLMAN atorvastatin (Lipitor) tablet 40 mg, 40 mg, Per G Tube, Daily, Grzegorz Chatterjee MD, 40 mg at 06/15/2534 busPIRone (Buspar) tablet 5 mg, 5 mg, Per G Tube, TID, Grzegorz Chatterjee MD, 5 mg at 06/15/2534 carvedilol (Coreg) tablet 3.125 mg, 3.125 mg, Per G Tube, BID WC, Raine Etienne MD, 3.125 mg at 06/15/2534 cefepime (Maxipime) 1,000 mg in sodium chloride 0.9 % 50 mL IVPB, 1,000 mg, IntraVENous, q12h, Geno Waddell MD, Stopped at 06/15/25 0651 chlorhexidine (Hibiclens) 4 % solution, , Topical, Daily, Anjum Fma MD dextrose 5 % and sodium chloride [...] day on Wednesday, Mi Singh APRN - BELLMAN, 2,600 Units at 06/15/25 0934 FLUoxetine (PROzac) [...] q4h, RENITA Tyler CNP, 3 mL at 06/15/25 0743 LORazepam (Ativan) tablet 0.25 mg, 0.25 mg, Per G Tube, q8h PRN, RENITA Schwartz CNP melatonin tablet 3 mg, 3 mg, Per G Tube, Nightly PRN, RENITA Schwartz CNP miconazole (Micotin) 2 % powder, , Topical, BID, RENITA Gtz CNP, Given at 06/15/25 0935 midodrine (Proamatine) tablet [...] 4 mL, 4 mL, Nebulization, BID, Neelima Hakns, RENITA - BELLMAN, 4 mL at 06/15/25 0735 stomahesive in petrolatum (ET Mix), , Topical, PRN, RENITA Gtz CNP, Given at 06/08/25 1857 stomahesive in petrolatum (ET Mix), , Topical, 3 times per day, RENITA Gtz CNP, Given at 06/15/25 0632 [facility] Respiratory Care Department Progress Note Spontaneous Awakening [...] Secretion Color: Clear (06/15/25324) Secretion Consistency: Thin (09/19/25 0325) ABG results No results for input(s): "PHART", "BIG7HKX", "PO2ART", "NGE3ALG", "SO2ART", "P7LSXWJC" in the last 72 hours. Does this patient meet criteria for termination of mechanical ventilation No - Chronic Vent Dependent Name of physician notified via secure chat or in person : N/A (NA if patient did not meet criteria) Comments: Thank you for involving Respiratory in the care of this patient, [facility] Nephrology Progress Note y.o. year old female who we are seeing in consultation for ESRD and management of HD. Follows with Dr. Loredo and an outpatient HD schedule M- at [facility]. 06/06: TDC removed for suspicion of infection [...] Patient Position: Lying Pulse: 63 67 Resp: 19 20 16 Temp: 36.7 C (98.1 F) TempSrc: Oral SpO2: 100% 100% 100% 100% Weight: Height: 24HR INTAKE/OUTPUT: Intake/Output Summary (Last 24 hours) at 06/14/2025 1326 Last data filed at 06/14/2025 0349 Gross per 24 hour Intake 1727 ml Output 57302 ml Net -39924 ml Wt Readings from Last 3 Encounters: [...] 06/14/2025 Phosphorus: No results found for: "PHOS" Assessment/ 75 y.o. female with ESRD N18.6 C. Difficile A04.72 Anemia D63.1 Volume overload E87.70 Hyponatremia E87.1 Chronic respiratory failure J96.10 Diabetes E11.22 Dependence on hemodialysis RECOMMENDATIONS: - HD schedule M-F at [facility], follows with Dr. Loredo. 2 L removed [...] the above assessment and plan with the [employer] CREWMEMBER. I agree with above note. DICK CORNELIUS. Images from the original note were not included. [facility] Wound Care Progress Note Rosa Myers AGE: 75 y.o. GENDER: female : 1950 Subjective: HISTORY of PRESENT ILLNESS HPI Rosa Myers is a 75 y.o. female who presents for a wound follow up. HPI: Ms. Myers is a 75 y.o. female who presents to the emergency department with chief complaint of abnormal blood counts. 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 Any questions or concerns please secure chat "[facility] wound/ostomy". I personally obtained the soto and [...] Barraza DO at 06/19/2025 12:02 PM EDT [facility] Hospitalist Progress note [phone]: Please page ms ([phone]) for patient care issues. [phone]: Please page [facility] Hospitalist for any issues. Subjective: Admit [...] per 24 hour Intake 1727 ml Output 60322 ml Net -86755 ml LABS: CBC: Recent Labs 06/12/25 0550 [...] MD Division of Hospitalist Medicine Inpatient Medical Services/[facility] [1] [2] atorvastatin, 40 mg, Per [...] from the original note were not included. [facility], Pulmonary Medicine [address] [place] [id number] Patient - Rosa Myers, Age - 75 y.o. - 1950 Room Number - 222-04/222-04 A Consulting - Robert Jimenez MD Primary Care Physician - No primary care provider on file[id number] Date of Admission - 06/01/2025 10:53 AM [...] per 24 hour Intake 1727 ml Output 19429 ml Net -80890 ml Physical Exam:unchanged compared to 06/07 Physical [...] Patient remains stable to discharge back to [facility] from pulmonary standpoint Case discussed with nurse and patient Questions and concerns addressed. [1] Patient Active Problem List Diagnosis Anemia Anemia, unspecified type Moderate malnutrition (CMS/HCC) ([facility]) [2] No Known Allergies [3] Current Facility-Administered Medications: acetaminophen (Tylenol) tablet 650 mg, 650 mg, Oral, q6h PRN, 650 mg at 06/13/252045 OR acetaminophen (Tylenol) suppository 650 mg, 650 mg, Rectal, q6h PRN, Mahaveer Mukkamalla, MD albumin human 5 % IV solution 25 g, 25 g, IntraVENous, TID PRN, Rad Acosta MD albuterol (2.5 MG/3ML) 0.083% nebulizer solution 2.5 mg, 2.5 mg, Nebulization, q6h PRN, Neelima Hanks APRN - BELLMAN atorvastatin (Lipitor) tablet 40 mg, 40 mg, Per G Tube, Daily, Grzegorz Chatterjee MD, 40 mg at 06/14/25 0916 busPIRone (Buspar) tablet 5 mg, 5 mg, Per G Tube, TID, Grzegorz Chatterjee MD, 5 mg at 06/14/25 09 carvedilol (Coreg) tablet 3.125 mg, 3.125 mg, Per G Tube, BID WC, Raine Etienne MD, 3.125 mg at 06/14/25 0918 cefepime (Maxipime) 1,000 mg in sodium chloride [...] day on Wednesday, Mi Singh APRN - BELLMAN, 2,600 Units at 06/13/25 1125 FLUoxetine (PROzac) [...] Units, IntraCATHeter, PRN, Mi Singh APRN - RENEE, 1,400 Units at 06/11/25 1404 heparin injection 1,200-2,000 Units, 1,200-2,000 Units, IntraCATHeter, PRN, Mi Singh APRN - RENEE, 1,400 Units at 06/11/25 1402 heparin injection [...] RENITA Tyler CNP, 3 mL at 06/14/25 0815 miconazole (Micotin) 2 % powder, , Topical, BID, RENITA Gtz CNP, Given at 06/14/25917 midodrine (Proamatine) tablet 10 mg, 10 mg, Per G Tube, TID, Grzegorz Chatterjee MD, 10 mg at 06/13/252045 minocycline capsule 100 mg, 100 mg, Oral, BID, Kishore Wolff MD, 100 mg at 06/14/25 0916 morphine injection 1 mg, 1 mg, IntraVENous, q4h PRN, Geno Waddell MD, 1 mg at 06/12/25 221 pantoprazole (ProtoNix) 40 mg in sodium chloride [...] mL, Nebulization, BID, Neelima Hanks APRN - BELLMAN, 4 mL at 06/14/25 0806 stomahesive in petrolatum (ET Mix), , Topical, PRN, RENITA Gtz BELLMAN, Given at 06/08/25 1857 stomahesive in petrolatum [...] sodium chloride, sodium chloride, stomahesive in petrolatum [facility] Nephrology Progress Note Subjective/ 75 y.o. year old female who we are seeing in consultation for ESRD and management of HD. Follows with Dr. Loredo and an outpatient HD schedule M- at [facility]. 06/06: TDC removed for suspicion of infection [...] 83.4 PLT 235 224 235 Recent Labs 06/11/25 0552 06/12/25 0550 06/13/25 [...] hemodialysis RECOMMENDATIONS: - HD schedule M-F at [facility] [place], follows with Dr. Loredo. 1.6 L removed [...] 06/13/2025 10:46 PM EDT Associated attestation - Coleman Toney MD - 06/13/2025 10:46 PM EDT I have reviewed the above assessment and plan with the [employer]. I agree with above note. [facility] Hospitalist Progress note [phone]: Please page me ([phone]) for patient care issues. [phone]: Please page [facility] Hospitalist for any issues. Subjective: Admit [...] per 24 hour Intake 2043 ml Output 26680 ml Net -82994 ml LABS: CBC: Recent Labs 06/11/25 0552 [...] MD Division of Hospitalist Medicine Inpatient Medical Services/[facility] [1] [2] atorvastatin, 40 mg, Per [...] from the original note were not included. [facility], Pulmonary Medicine [address] [place] [address] Patient - Rosa Myers, Age - 75 [...] Patient remains stable to discharge back to [facility] from pulmonary standpoint Case discussed with nurse and patient Questions and concerns addressed. [1] Patient Active Problem List Diagnosis Anemia Anemia, unspecified type Moderate malnutrition (CMS/HCC) ([facility]) [2] No Known Allergies [3] Current [...] , Raine Etienne MD, 3.125 mg at 06/12/25 [...] mL, Nebulization, q4h, Neelima Hanks APRN - BELLMAN, 3 mL at 06/13/25 09 miconazole (Micotin) 2 % powder, , Topical, BID, Patrica Weinstein APRN - BELLMAN, Given at 06/12/25 222 midodrine (Proamatine) tablet [...] Grzegorz Chatterjee MD, 40 mg at 06/12/25 220 polyethylene glycol (PEG) 3350 (Miralax) packet 17 [...] sodium chloride, sodium chloride, stomahesive in petrolatum [facility] Respiratory Care Department Progress Note Spontaneous Awakening [...] 0.9 sec (06/13/251013) Vitals MAP (mmHg): 107 (06/13/25 0402) Heart Rate: 62 (06/13/251013) Resp: 22 (06/13/25423) SpO2: 100 % (06/13/251013) Suctioning/Secretions Secretion Amount: Moderate (06/13/25423) Secretion Color: White, Yellow (06/13/25423) Secretion Consistency: Thick (06/13/25423) ABG results No results for input(s): "PHART", "ISU7VMJ", "PO2ART", "DUR2YFB", "SO2ART", "M4IKYIFL" in the last 72 hours. Does this [...] from the original note were not included. [facility] - Infectious Diseases Attending Progress Note Subjective: [...] and oriented times 3. Labs: Recent Labs 06/11/2552 06/12/25 0550 06/13/25 0433 [...] 1142 Aerobic and Anaerobic Culture with Stain [[id number]] Body Fluid from Pleural Cavity, Left In process Component Value No component results 06/07/2025 1129 06/09/2025 0748 Culture, Aerobic Bacteria with Gram Stain [[id number]] Body Fluid from Pleural Cavity, Left Preliminary result Component Value Culture No growth at 48 hours P Gram Stain Result Few Polymorphonuclear leukocytes per low power field P No organisms seen P 06/07/2025 1129 06/07/2025 1142 Anaerobic culture [[id number]] Body Fluid from Pleural Cavity, Left In process Component Value No component results 06/07/2025 1025 06/09/2025 1301 Blood culture Site #2 - Suspected Infection [[id number]] Blood, Venous Preliminary result Component Value Blood Culture No growth at 48 hours P 06/07/2025 1014 06/09/2025 1301 Blood culture Site #1 - Suspected Infection [[id number]] Blood, Venous Preliminary result Component Value Blood Culture No growth at 48 hours P 06/06/2025 1732 06/08/2025 1413 Respiratory culture and Stain [[id number]] (Abnormal) Sputum Preliminary result Component Value Respiratory [...] 06/06/2025 1732 06/07/2025 1158 Pneumonia PCR Panel [[id number]] (Abnormal) Sputum Final result Component Value Staphylococcus [...] 06/06/2025 1429 06/09/2025 0801 Culture, Cath Tip [[id number]] (Abnormal) Foreign Body from Cannula Final result Component Value Culture >15 CFU Serratia marcescens Abnormal This organism possesses an ampC beta-lactamase. For serious infections outside of the urinary tract, third generation cephalosporins may not be effective, even if test results indicate the organism is susceptible. 06/02/2025173506/02/20252058 Gastrointestinal PCR Panel [[id number]] Stool from Per Rectum Final result Component [...] DIFFICILE by PCR with Reflex to EIA [[id number]] (Abnormal) Stool from Per Rectum Final result Component Value C. difficile toxin PCR Detected Abnormal 06/02/2025 1736 06/02/2025 2208 C. difficile Toxins EIA [[id number]] (Abnormal) Stool from Per Rectum Final result Component Value C difficile Toxins A+B, EIA Positive Abnormal Lines: RIJ HD cath (06/12/25) Radiography/Echo/Other: XR chest 1 view [[id number]] Collected: 06/08/25 140 Order Status: Completed Updated: [...] 06/08/2025 2:04 PM EDT US guided thoracentesis [[id number]] Collected: 06/07/25 1409 Order Status: Completed Updated: [...] 2:09 PM EDT XR chest 1 view [[id number]] Collected: 06/06/252039 Order Status: Completed Updated: 06/06/252042 [...] PM EDT IR CVC tunneled catheter removal [[id number]] Collected: 06/06/25 1546 Order Status: Completed Updated: 06/06/251546 Narrative: Patient [...] 3:46 PM EDT XR chest 1 view [[id number]] Collected: 06/01/25 1217 Order Status: Completed Updated: [...] benefits, and consideration of use of antimicrobials. [facility] Respiratory Care Department Progress Note Spontaneous Awakening [...] ABG results No results for input(s): "PHART", "MFP8LPB", "PO2ART", "IFU6JSK", "SO2ART", "L2DFTGZP" in the last 72 hours. Does this patient meet criteria for termination of mechanical ventilation Yes- Notified physician below Name of physician notified via secure chat or in person : N/A (NA if patient did not meet criteria) Comments: Thank you for involving Respiratory in the care of this patient, [facility] Nephrology Progress Note Subjective/ 75 y.o. year old female who we are seeing in consultation for ESRD and management of HD. Follows with Dr. Loredo and an outpatient HD schedule M- at [facility]. 06/06: TDC removed for suspicion of infection [...] hemodialysis RECOMMENDATIONS: - HD schedule M-F at [facility], follows with Dr. Loredo. 1.6 L removed [...] sodium chloride, sodium chloride, stomahesive in petrolatum [facility] Hospitalist Progress note [phone]: Please page me ([phone]) for patient care issues. [phone]: Please page [facility] night Hospitalist for any issues. Subjective: [...] MD Division of Hospitalist Medicine Inpatient Medical Services/[facility] [1] [2] atorvastatin, 40 mg, Per [...] from the original note were not included. [facility], Pulmonary Medicine [address] [place] [address] Patient - Rosa Myers, Age - 75 y.o. - 1950 Room Number - 222-04/222-04 A Consulting - Robert Jimenez MD Primary Care Physician - No primary care provider on file. Date of Admission - 06/01/2025 10:53 AM Hospital Day - 11 Problem List[1] Chief Complaint: Jose Maria Myers [...] Discharge planning: Stable to discharge back to [facility] from pulmonary standpoint Case discussed with nurse [...] Units, IntraCATHeter, PRN, Mi Singh APRN - BELLMAN, 1,400 Units at 06/11/25 1404 heparin injection 1,200-2,000 Units, 1,200-2,000 Units, IntraCATHeter, PRN, Mi Singh APRN - BELLMAN, 1,400 Units at 06/11/25 1402 heparin injection 1,200-2,000 Units, 1,200-2,000 Units, IntraCATHeter, PRN, Yamil Newby MD heparin injection 1,200-2,000 Units, 1,200-2,000 Units, IntraCATHeter, PRN, Yamil Newby MD heparin injection 5,000 Units, 5,000 Units, SubCUTAneous, 2 times per day, Sharyn Amaya MD, 5,000 Units at 06/12/25 0950 insulin glargine (Lantus) injection 25 Units, 25 Units, SubCUTAneous, BID, Sharyn Amaya MD, 25 Units at 06/11/252047 Insulin Lispro (Humalog) injection 0-6 Units, 0-6 Units, SubCUTAneous, q6h, Grzegorz Chatterjee MD, 1 Units at 06/12/25 0554 ipratropium-albuterol (Duo-Neb) 0.5-2.5 mg/3 mL nebulizer solution 3 mL, 3 mL, Nebulization, q4h, Neelima Hanks, SOCK LINING STITCHER - BELLMAN, 3 mL at 06/12/25 0808 miconazole (Micotin) 2 % powder, , Topical, BID, Patrica Weinstein APRN - BELLMAN, 1 Application at 06/12/25 0951 midodrine (Proamatine) [...] Nightly, Grzegorz Chatterjee MD, 40 mg at 06/11/258 polyethylene glycol (PEG) 3350 (Miralax) packet 17 [...] sodium chloride, sodium chloride, stomahesive in petrolatum [facility] Respiratory Care Department Progress Note Spontaneous Awakening [...] ABG results No results for input(s): "PHART", "ASP8AEV", "PO2ART", "YFC7IJW", "SO2ART", "M0RUTLXK" in the last 72 hours. Does this patient meet criteria for termination of mechanical ventilation No - Chronic Vent Dependent Name of physician notified via secure chat or in person : NA (NA if patient did not meet criteria) Comments: Thank you for involving Respiratory in the care of this patient, [facility] Nephrology Progress Note Subjective/ 75 y.o. year old female who we are seeing in consultation for ESRD and management of HD. Follows with Dr. Loredo and an outpatient HD schedule M-F at [facility]. 06/06: TDC removed for suspicion of infection [...] hemodialysis RECOMMENDATIONS: - HD schedule M-F at [facility], follows with Dr. Loredo. Tolerating HD today, [...] petrolatum Cosigned by Coleman Toney MD at 06/11/2025 8:30 PM EDT Associated attestation - Coleman Toney MD - 06/11/2025 8:30 PM EDT I have reviewed the above assessment and plan with the [employer]. I agree with above note. Needs Temp [...] removed. Plan is to go back to [facility]. Estimated Daily Nutrient Needs: Energy Requirements Based On: Kcal/kg Weight Used for Energy Requirements: [place] Weight for Energy Calculation (kg): 57 kg Total Energy Requirements (kcals/day): 8792-2176 (25-30 kcal/kg IBW) Weight Used for Protein Requirements: [place] Weight in Kg Used for Protein Requirements: [...] 103 kg (226 lb) (noted 05/25 at [facility]) Usual Body Weight: 110 kg (242 lb) (per EMR--> 242# 11/27/24; 220# (bed) 03/07/25; 209.7# 04/02/25; 226# 05/25/25) % Weight Change (Calculated): -8.4 [place] Body Weight (lbs) (Calculated): 125 lbs [place] Body Weight (Kg) (Calculated): 57 kg % [place] Body Weight (Calculated): 183.2 % BMI (kg/m2) [...] Planning: Enteral Nutrition Queta Steve RD Contact: [phone] or via Secure Chat Images from the original note were not included. [facility], Pulmonary Medicine [address] [place], [place] [id number] Patient - Rsoa Myers, Age - 75 y.o. - 1950 [...] breath or chest pain. Secretions improved per BALE SEWER. No new overnight concerns. Vent settings: Mode [...] Code Discharge planning: Anticipate discharge back to [facility] once medically stable Case discussed with nurse and patient Questions and concerns addressed. [1] Patient Active Problem List Diagnosis Anemia Anemia, unspecified type Moderate malnutrition (CMS/HCC) ([facility]) [2] No Known Allergies [3] Current [...] Units, 1,200-2,000 Units, IntraCATHeter, PRN, Mi Singh, SOCK LINING STITCHER - BELLMAN, 1,600 Units at 06/04/25 1923 heparin injection 1,200-2,000 Units, 1,200-2,000 Units, IntraCATHeter, PRN, Mi Singh, RENITA - BELLMAN, 1,600 Units at 06/04/25 1922 heparin injection 1,200-2,000 Units, 1,200-2,000 Units, IntraCATHeter, PRN, Carmela Francois DO, 1,400 Units at 06/08/25 1816 heparin injection 1,200-2,000 Units, 1,200-2,000 Units, IntraCATHeter, [...] sodium chloride, sodium chloride, stomahesive in petrolatum [facility] Hospitalist Progress note [phone]: Please page me ([phone]) for patient care issues. [phone]: Please page [facility] Hospitalist for any issues. 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 She was admitted to hospital on ICU floor given Vent status but followed by hospital medicine, pulmonology and nephrology during stay. Cryptological Technician consulted for management of tube feeding = [...] MD Division of Hospitalist Medicine Inpatient Medical Services/[facility] [1] dextrose 5 % and sodium [...] petrolatum, , Topical, 3 times per day [facility] Respiratory Care Department Progress Note Spontaneous Awakening [...] ABG results No results for input(s): "PHART", "IEW5XQV", "PO2ART", "VZZ2CGA", "SO2ART", "L2VGNGOF" in the last 72 hours. Does this patient meet criteria for termination of mechanical ventilation No - Chronic Vent Dependent Comments: Thank you for involving Respiratory in the care of this patient, [facility] Nephrology Progress Note Subjective/ 75 y.o. year old female who we are seeing in consultation for ESRD and management of HD. Follows with Dr. Loredo and an outpatient HD schedule M- at [facility]. 06/04: last iHD tx, 1.6 L removed [...] Meds[2] PRN Meds:PRN Meds[3] Data/ Recent Labs 06/08/2511406/09/25 0633 06/09/25 0735 06/10/25 0508 06/10/25 1238 WBC 6.5 6.7 -- 6.4 -- HGB 7.7* 6.9* 7.3* 6.8* 8.1* HCT 24.6* 22.0* 22.8* 22.4* 25.8* MCV 83.1 82.7 -- 84.5 -- PLT 236 230 -- 228 -- Recent Labs 06/08/2511406/09/25 0541 06/10/25 0508 NA 129* 136 134* K 3.8 3.8 3.9 CL 95* 99 99 CO2 25 GLUCOSE 150* 101 121* BUN 51* [...] hemodialysis RECOMMENDATIONS: - HD schedule M-F at [facility], follows with Dr. Loredo. S/p iHD 06/04 [...] sodium chloride, sodium chloride, stomahesive in petrolatum [facility] Hospitalist Progress note [phone]: Please page ms [phone]) for patient care issues. [phone]: Please page [facility] Hospitalist for any issues. Subjective: Admit Date: 06/01/2025 PCP: No primary care provider on file. Room#: 222-04/222-04 A Rosa Myers is a 75 y.o. 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 She was admitted to hospital on ICU floor given Vent status but followed by hospital medicine, pulmonology and nephrology during stay. Cryptological Technician consulted for management of tube feeding = [...] Net 1755 ml LABS: CBC: Recent Labs 06/08/2511406/09/25 0633 06/09/25 0735 06/10/25 0508 WBC 6.5 6.7 -- 6.4 RBC 2.96* 2.66* -- 2.65* HGB 7.7* 6.9* 7.3* 6.8* HCT 24.6* 22.0* 22.8* 22.4* MCV 83.1 82.7 -- 84.5 RDW 19.2* 19.1* -- 19.1* PLT 236 230 -- 228 BMP: Recent Labs 06/08/25 01106/09/25 0541 06/10/25 0508 NA 129* 136 134* [...] Facility - Pending the following -clinical improvement, moving consultant recommendations Total time spent (which include face to face and non face to face encounters) : 52 minutes Toxic drug monitoring/narrow therapeutic index drug monitoring : # Drug name : # Route administered : # Method of monitoring : No emergency contact information on file. Advance Directive: Full Code Discharge planning: TBD Raine Etienne MD Division of Hospitalist Medicine Inpatient Medical Services/[facility] [1] dextrose 5 % and sodium [...] with transfusion of blood components. DR Etienne [facility] Respiratory Care Department Progress Note Spontaneous Awakening [...] Clear, White (06/09/252002) Secretion Consistency: Thick (06/09/25 1243) ABG results No results for input(s): "PHART", "PJU4ACR", "PO2ART", "MGF4EUT", "SO2ART", "F9VEFBGU" in the last 72 hours. Does this patient meet criteria for termination of mechanical ventilation No - Chronic Vent Dependent Comments: Thank you for involving Respiratory in the care of this patient, [facility] Nephrology Progress Note Subjective/ 75 y.o. year old female who we are seeing in consultation for ESRD and management of HD. Follows with Dr. Loredo and an outpatient HD schedule M- at [facility]. 06/04: last iHD tx, 1.6 L removed [...] Meds[2] PRN Meds:PRN Meds[3] Data/ Recent Labs 06/07/255 06/08/25 0115 06/09/25 0633 06/09/25 0735 WBC 7.4 6.5 6.7 -- HGB 7.5* 7.7* 6.9* 7.3* HCT 24.4* 24.6* 22.0* 22.8* MCV 84.4 83.1 82.7 -- PLT 234 236 230 -- Recent Labs 06/07/2533406/08/25 0115 06/09/25 0541 NA 133* 129* 136 K 3.7 3.8 3.8 CL 96* 95* 99 CO2 26 24 26 GLUCOSE 119* 150* 101 BUN 40* 51* 26* CREATININE 3.68* 4.25* 2.37* Albumin: No components found for: "LABALBU" Calcium: Lab Results Component Value Date CALCIUM 9.1 06/09/2025 Ionized Calcium: No components found for: "IONCA" Magnesium: No results found for: "MG" Phosphorus: No results found for: "PHOS" Assessment/ 75 y.o. female with ESRD N18.6 C. Difficile A04.72 Anemia D63.1 Volume overload E87.70 Hyponatremia E87.1 Chronic respiratory failure J96.10 Diabetes E11.22 Dependence on hemodialysis RECOMMENDATIONS: - HD schedule M-F at [facility], follows with Dr. Loredo. S/p iHD 06/04 [...] from the original note were not included. [facility] - Infectious Diseases Attending Progress Note Subjective: [...] -- -- 62 18 99 % -- 06/09/251 -- -- -- 72 19 100 % -- 06/08/252323 -- -- -- 72 19 99 % -- 06/08/252021 130/50 37.2 C (99 F) Oral 70 20 100 % -- 06/08/252002 -- -- -- 65 18 100 % -- 06/08/251811 104/54 37.1 C (98.8 F) -- 67 [...] and oriented times 3. Labs: Recent Labs 06/07/25 0335 06/08/25 0115 06/09/25 0541 NA 133* 129* 136 K 3.7 3.8 3.8 CL 96* 95* 99 CO2 26 24 26 BUN 40* 51* 26* CREATININE 3.68* 4.25* 2.37* GLUCOSE 119* 150* 101 CALCIUM 9.4 9.1 9.1 PROT 6.8 6.5 6.6 BILITOT 0.6 0.5 0.5 ALKPHOS 123 118 117 AST 19 16 18 ALT 9 9 9 Recent Labs 06/07/25 0335 06/08/25 0115 06/09/25 0633 06/09/25 0735 WBC 7.4 6.5 6.7 -- HGB 7.5* 7.7* 6.9* 7.3* HCT 24.4* 24.6* 22.0* 22.8* PLT 234 236 230 -- Micro: No results for input(s): "COVID19" in the last 72 hours. Collected Updated Procedure Result Status 06/07/2025 11206/07/2025 1142 Aerobic and Anaerobic Culture with Stain [[id number]] Body Fluid from Pleural Cavity, Left In process Component Value No component results 06/07/2025 1129 06/09/2025 0748 Culture, Aerobic Bacteria with Gram Stain [[id number]] Body Fluid from Pleural Cavity, Left Preliminary result Component Value Culture No growth at 48 hours P Gram Stain Result Few Polymorphonuclear leukocytes per low power field P No organisms seen P 06/07/2025 1129 06/07/2025 1142 Anaerobic culture [[id number]] Body Fluid from Pleural Cavity, Left In process Component Value No component results 06/07/2025 1025 06/09/2025 1301 Blood culture Site #2 - Suspected Infection [[id number]] Blood, Venous Preliminary result Component Value Blood Culture No growth at 48 hours P 06/07/2025 1014 06/09/2025 1301 Blood culture Site #1 - Suspected Infection [[id number]] Blood, Venous Preliminary result Component Value Blood Culture No growth at 48 hours P 06/06/2025 1732 06/08/2025 1413 Respiratory culture and Stain [[id number]] (Abnormal) Sputum Preliminary result Component Value Respiratory [...] 06/06/2025 1732 06/07/2025 1158 Pneumonia PCR Panel [[id number]] (Abnormal) Sputum Final result Component Value Staphylococcus [...] 06/06/2025 1429 06/09/2025 0801 Culture, Cath Tip [[id number]] (Abnormal) Foreign Body from Cannula Final result Component Value Culture >15 CFU Serratia marcescens Abnormal This organism possesses an ampC beta-lactamase. For serious infections outside of the urinary tract, third generation cephalosporins may not be effective, even if test results indicate the organism is susceptible. 06/02/2025 1736 06/02/2025 205 Gastrointestinal PCR Panel [[id number]] Stool from Per Rectum Final result Component [...] DIFFICILE by PCR with Reflex to EIA [[id number]] (Abnormal) Stool from Per Rectum Final result Component Value C. difficile toxin PCR Detected Abnormal 06/02/2025 1736 06/02/20252207 C. difficile Toxins EIA [[id number]] (Abnormal) Stool from Per Rectum Final result Component Value C difficile Toxins A+B, EIA Positive Abnormal Lines: RIJ HD cath (06/08/25) Radiography/Echo/Other: XR chest 1 view [[id number]] Collected: 06/08/251401 Order Status: Completed Updated: 06/08/251404 [...] 06/08/2025 2:04 PM EDT US guided thoracentesis [[id number]] Collected: 06/07/25 1409 Order Status: Completed Updated: [...] 2:09 PM EDT XR chest 1 view [[id number]] Collected: 06/06/252039 Order Status: Completed Updated: 06/06/252042 [...] PM EDT IR CVC tunneled catheter removal [[id number]] Collected: 06/06/25 1546 Order Status: Completed Updated: 06/06/251546 Narrative: Patient [...] 3:46 PM EDT XR chest 1 view [[id number]] Collected: 06/01/25 121 Order Status: Completed Updated: 06/01/25 1220 Narrative: [facility]: [facility]A MYERS : 1950 [id number] Exam Date/Time: 06/01/2025 11:50 Procedure: XR CHEST [...] benefits, and consideration of use of antimicrobials. [facility] Hospitalist Progress note [phone]: Please page me ([phone]) for patient care issues. [phone]: Please page [facility] Hospitalist for any issues. 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 She was admitted to hospital on ICU floor given Vent status but followed by hospital medicine, pulmonology and nephrology during stay. Cryptological Technician consulted for management of tube feeding = [...] Net -195 ml LABS: CBC: Recent Labs 06/07/25 0335 06/08/25 0115 06/09/25 0633 06/09/25 0735 WBC 7.4 6.5 6.7 -- RBC 2.89* 2.96* 2.66* -- HGB 7.5* 7.7* 6.9* 7.3* HCT 24.4* 24.6* 22.0* 22.8* MCV 84.4 83.1 82.7 -- RDW 19.2* 19.2* 19.1* -- PLT 234 236 230 -- BMP: Recent Labs 06/07/2533406/08/25 0115 06/09/25 0541 NA 133* 129* 136 K 3.7 3.8 3.8 CL 96* 95* 99 CO2 26 24 26 BUN 40* 51* 26* CREATININE 3.68* 4.25* 2.37* GLUCOSE 119* 150* 101 CALCIUM 9.4 9.1 9.1 ANIONGAP 11 10 11 LIVER PROFILE: Recent Labs 06/07/2533406/08/25 0115 06/09/25 0541 AST 19 16 18 ALT 9 [...] Facility - Pending the following -clinical improvement, moving consultant recommendations Total time spent (which include face to face and non face to face encounters) : 50 minutes Toxic drug monitoring/narrow therapeutic index drug monitoring : # Drug name : # Route administered : # Method of monitoring : No emergency contact information on file. Advance Directive: Full Code Discharge planning: TBD Raine Etienne MD Division of Hospitalist Medicine Inpatient Medical Services/[facility] [1] [2] atorvastatin, 40 mg, Per [...] petrolatum, , Topical, 3 times per day [facility] Respiratory Care Department Progress Note Spontaneous Awakening [...] ABG results No results for input(s): "PHART", "MCO8NPS", "PO2ART", "NWB4FYG", "SO2ART", "H0LZGUKL" in the last 72 hours. Does this patient meet criteria for termination of mechanical ventilation No - Chronic Vent Dependent Name of physician notified via secure chat or in person : N/A (NA if patient did not meet criteria) Comments: Thank you for involving Respiratory in the care of this patient, Images from the original note were not included. [facility], Pulmonary Medicine [address] [place] [id number] Patient - Rosa Myers, Age - 75 y.o. - 1950 Room Number - [id number] A Consulting - Raine Etienne MD Primary Care Physician - No primary care provider on file. [id number] Date of Admission - 06/01/2025 10:53 AM Hospital Day - 7 Problem List[1] Chief Complaint: Jose Maria Myers is a 75 y.o. female who pulmonary is following for [facility] Subjective/Interval History: Patient awake resting in bed. [...] Medications[3] PRN Meds[4] Labs: CBC: Recent Labs 06/06/25 0506/07/25 03306/08/25 0115 WBC 5.9 7.4 6.5 HGB 7.2* 7.5* 7.7* HCT 24.5* 24.4* 24.6* PLT 197 234 236 MCV 86.3 84.4 83.1 RDW 19.4* 19.2* 19.2* BMP: Recent Labs 06/06/25 0514 06/07/25 0335 06/08/25 0115 NA 134* 133* 129* K 3.7 3.7 3.8 CL 98 96* 95* CO2 26 26 24 BUN 30* 40* 51* CREATININE 2.79* 3.68* 4.25* CALCIUM 9.0 9.4 9.1 LFTs: Recent Labs 06/06/25 0514 06/07/25 0335 06/08/25 0115 AST 21 19 16 ALT 12 [...] Code Discharge planning: Anticipate discharge back to [facility] once medically stable Will not be seen [...] Nebulization, q6h PRN, Neelima Hanks APRN - [facility] atorvastatin (Lipitor) tablet 40 mg, 40 mg, Per G Tube, Daily, Grzegorz Chatterjee MD, 40 mg at 06/08/25 0912 busPIRone (Buspar) tablet 5 mg, 5 mg, Per G Tube, TID, Grzegorz Chatterjee MD, 5 mg at 06/08/25 0912 [Held by provider] carvedilol (Coreg) tablet 3.125 [...] Units, IntraCATHeter, PRN, Mi Singh APRN - [facility], 1,600 Units at 06/04/251922 heparin injection 1,200-2,000 Units, 1,200-2,000 Units, IntraCATHeter, PRN, Mi Singh APRN - [facility], 1,600 Units at 06/04/251921 heparin injection 5,000 [...] mL, Nebulization, q4h, Neelima Hanks APRN - [facility], 3 mL at 06/08/25 0835 miconazole (Micotin) 2 % powder, , Topical, BID, Patrica Weinstein APRN - [facility], Given at 06/08/25 09 midodrine (Proamatine) tablet [...] BID, RENITA Tyler CNP, 3 mL at 06/08/25 0834 stomahesive in [...] sodium chloride, sodium chloride, stomahesive in petrolatum [facility] Nephrology Progress Note Subjective/ 75 y.o. year old female who we are seeing in consultation for ESRD and management of HD. Follows with Dr. Loredo and an outpatient HD schedule M-F at [facility]. 06/04: last iHD tx, 1.6 L removed [...] Meds[2] PRN Meds:PRN Meds[3] Data/ Recent Labs 06/06/2551306/07/25 0335 06/08/25 0115 WBC 5.9 7.4 6.5 HGB 7.2* [...] hemodialysis RECOMMENDATIONS: - [facility], follows with Dr. Loredo. S/p iHD 06/04 [...] Toney MD at 06/08/2025 6:11 PM EDT [facility] Hospitalist Progress note [phone]: Please page me ([phone]) for patient care issues. [phone]: Please page [facility] Hospitalist for any issues. 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 She was admitted to hospital on ICU floor given Vent status but followed by hospital medicine, pulmonology and nephrology during stay. Cryptological Technician consulted for management of tube feeding = [...] Net 3929.67 ml LABS: CBC: Recent Labs 06/06/25 0506/07/2533406/08/25114 WBC 5.9 7.4 6.5 RBC 2.84* 2.89* [...] 10 11 10 LIVER PROFILE: Recent Labs 06/06/25 0506/07/2533406/08/25114 AST 21 19 16 ALT 12 9 [...] Facility - Pending the following -clinical improvement, moving consultant recommendations Total time spent (which include face to face and non face to face encounters) : 60 minutes Toxic drug monitoring/narrow therapeutic index drug monitoring : # Drug name : # Route administered : # Method of monitoring : No emergency contact information on file. Advance Directive: Full Code Discharge planning: ALLA Etienne MD Division of Hospitalist Medicine Inpatient Medical Services/[facility] [1] [2] atorvastatin, 40 mg, Per [...] petrolatum, , Topical, 3 times per day [facility] Nephrology Progress Note Subjective/ 75 y.o. year old female who we are seeing in consultation for ESRD and management of HD. Follows with Dr. Loredo and an outpatient HD schedule M-F at [facility]. S/p iHD 06/04 for 1.6 L removal [...] Meds[2] PRN Meds:PRN Meds[3] Data/ Recent Labs 06/05/25 03006/06/25 0514 06/07/25 0335 WBC 5.7 5.9 7.4 HGB 7.6* 7.2* 7.5* HCT 24.8* 24.5* 24.4* MCV 84.6 86.3 84.4 PLT 234 197 234 Recent Labs 06/05/2530506/06/25 0514 06/07/25 0335 NA 137 134* 133* [...] hemodialysis RECOMMENDATIONS: - HD [facility]- [facility], follows with Dr. Loredo. S/p iHD 06/04 [...] the above assessment and plan with the [employer] DEFENSE CREWMEMBER. I agree with above note. HD catheter [...] (temporalis), Thigh (quadraceps) Fluid Accumulation: Severe Extremities Institution Director Strength: Normal chopper feeder strength Nutrition Assessment: 75 year old woman who remains admitted to [facility] with anemia from SNF. +1 u pRBC [...] On: Kcal/kg Weight Used for Energy Requirements: [place] Weight for Energy Calculation (kg): 57 kg Total Energy Requirements (kcals/day): 9255-4327 (25-30 kcal/kg IBW) Weight Used for Protein Requirements: [place] Weight in Kg Used for Protein Requirements: [...] 226# 05/25/25) % Weight Change (Calculated): -8.4 [place] Body Weight (lbs) (Calculated): 125 lbs [place] Body Weight (Kg) (Calculated): 57 kg % [place] Body Weight (Calculated): 177.4 % BMI (kg/m2) [...] Discharge Planning: Enteral Nutrition Raquel Brady RDN, ROSANNAN, Contact: *[phone] Images from the original note were not included. [facility], Pulmonary Medicine [address] [place] [address] Patient - Rosa Myers, Age - 75 y.o. - 1950 Room Number - [id number] A Consulting - Geno Waddell MD Primary Care Physician - No primary care provider on file. Date of Admission - 06/01/2025 10:53 AM Hospital Day - 6 Problem List[1] Chief Complaint: Anemia Rosa Myers [...] Code Discharge planning: Anticipate discharge back to [facility] once medically stable Case discussed with nurse and patient Questions and concerns addressed. [1] Patient Active Problem List Diagnosis Anemia Anemia, unspecified type Moderate malnutrition (CMS/HCC) ([facility]) [2] No Known Allergies [3] Current [...] IntraVENous, q12h, Geno Waddell MD, Stopped at 06/07/25 0750 dextrose [...] Units, IntraCATHeter, PRN, Mi Singh APRN - [facility], 1,600 Units at 06/04/251922 heparin injection 1,200-2,000 Units, 1,200-2,000 Units, IntraCATHeter, PRN, Mi Singh APRN - [facility], 1,600 Units at 06/04/25 192 heparin injection [...] q4h, RENITA Tyler CNP, 3 mL at 06/07/25 0858 miconazole (Micotin) 2 % powder, , Topical, BID, RENITA Gtz CNP, 1 Application at 06/07/25 0850 midodrine (Proamatine) tablet 10 mg, 10 mg, Per G Tube, TID, Grzegorz Chatterjee MD, 10 mg at 06/07/25 0849 morphine injection 1 mg, 1 mg, IntraVENous, q4h PRN, Geno Waddell MD, 1 mg at 06/07/25 0950 pantoprazole (ProtoNix) [...] from the original note were not included. [facility] Wound Care Progress Note Rosa Myers AGE: 75 y.o. GENDER: female : 1950 Subjective: HISTORY of PRESENT ILLNESS HPI Rosa Myers is a 75 y.o. female who presents for a wound follow up. HPI: Ms. Myers is a 75 y.o. female who presents to the emergency department with chief complaint of abnormal blood counts. Patient was sent to us from her shelter for lab drawl that shows hemoglobin of [...] with NS, apply skin barrier wipe, leave DINING ROOM HOST/HOSTESS daily and PRN Right/Left abdominal skin fold - Fungal: -cleanse with soap and water and dry thoroughly, apply Miconazole powder, leave PRAVEEN BID and PRN Sacral Stage 3 pressure injury(POA): - cleanse with soap and water, apply ET mix TID and PRN, leave DINING ROOM HOST/HOSTESS Sacral MASD d/t friction/fluids: - cleanse with soap and water, apply ET mix TID and PRN, leave DINING ROOM HOST/HOSTESS Right medial thigh - stage 3 Pressure injury (POA): - cleanse with soap and water, apply ET mix TID and PRN, leave DINING ROOM HOST/HOSTESS -continue ICU bed -Q2hr/PRN turns -glide sheets for T&R -continence checks Q1-2 Hrs/PRN Nutritional support Wound Care to follow Recommend to follow up at [facility] Out[facility] wound care center after hospital discharge. Any questions or concerns please secure chat "[facility] wound/ostomy". 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 She was admitted to hospital on ICU floor given Vent status but followed by hospital medicine, pulmonology and nephrology during stay. Cryptological Technician consulted for management of tube feeding = [...] History: Medical History[1] LABS: CBC: Recent Labs 06/05/25 0306 06/06/25 0514 06/07/25 0335 WBC 5.7 5.9 7.4 RBC 2.93* 2.84* 2.89* HGB 7.6* 7.2* 7.5* HCT 24.8* 24.5* 24.4* MCV 84.6 86.3 84.4 RDW 19.4* 19.4* 19.2* PLT 234 197 234 BMP: Recent Labs 06/05/256 06/06/2551306/07/25334 NA 137 134* 133* K 3.9 3.7 3.7 CL 100 98 96* CO2 27 26 26 BUN 18 30* 40* CREATININE 1.79* 2.79* 3.68* GLUCOSE 67* 145* 119* CALCIUM 8.9 9.0 9.4 ANIONGAP 10 10 11 LIVER PROFILE: Recent Labs 06/05/2530506/06/2551306/07/25334 AST 21 21 19 ALT 13 12 [...] lab, plan for line vacation until Wednesday and then insert - if tip cultures [...] not medically stable for transfer back to [facility]. ID consulted for central line being purulent, [...] Discharge - Date - - Location - [facility] - Pending the following - reinsertio nof [...] Waddell MD Division of Hospitalist Medicine Acute [facility] [1] No past medical history on [...] chloride, sodium chloride, stomahesive in petrolatum [4] [facility] Respiratory Care Department Progress Note Spontaneous Awakening [...] 99 % (06/06/252041) Suctioning/Secretions Secretion Amount: Large (06/06/25 1156) Secretion Color: White (06/06/25 115) Secretion Consistency: Thick (06/06/25 115) ABG results No results for input(s): "PHART", "HLX8RJI", "PO2ART", "DCH1BDB", "SO2ART", "I1WRIDLF" in the last 72 hours. Does this patient meet criteria for termination of mechanical ventilation No - Chronic Vent Dependent Name of physician notified via secure chat or in person : n/a (NA if patient did not meet criteria) Comments: Thank you for involving Respiratory in the care of this patient, [facility] Nephrology Progress Note Subjective/ 75 y.o. year old female who we are seeing in consultation for ESRD and management of HD. Follows with Dr. Loredo and an outpatient HD schedule M-F at [facility]. S/p iHD 06/04 for 1.6 L removal [...] Meds[2] PRN Meds:PRN Meds[3] Data/ Recent Labs 06/04/2543106/05/25 03006/06/25 0514 WBC 6.2 5.7 5.9 HGB 7.4* [...] 06/04/2025 Phosphorus: No results found for: "PHOS" / 75 y.o. female with ESRD N18.6 C. Difficile A04.72 Anemia D63.1 Volume overload E87.70 Hyponatremia E87.1 Chronic respiratory failure J96.10 Diabetes E11.22 Dependence on hemodialysis RECOMMENDATIONS: - HD schedule M- at [facility], follows with Dr. Loredo. S/p iHD 06/04 [...] from the original note were not included. [facility], Pulmonary Medicine [address] [place] [address] Patient - Rosa Myers, Age - 75 y.o. - 1950 Room Number - [id number] A Consulting - Geno Waddell MD Primary Care Physician - No primary care provider on file[id number] Date of Admission - 06/01/2025 10:53 AM Hospital Day - 5 Problem List[1] Chief Complaint: Anemia Rosa Myers [...] BID, Grzegorz Chatterjee MD, 200 mg at 06/06/25 0844 FLUoxetine (PROzac) capsule 20 mg, 20 mg, Per G Tube, Daily, Grzegorz Chatterjee MD, 20 mg at 06/06/25 0848 furosemide (Lasix) tablet 20 mg, 20 mg, Per G Tube, Daily, Grzegorz Chatterjee MD, 20 mg at 06/06/25 0844 glucagon (human recombinant) injection 1 mg, [...] Topical, BID, RENITA Gtz CNP, Given at 06/06/25843 midodrine (Proamatine) tablet 10 [...] from the original note were not included. [facility] Wound Care Progress Note Rosa Myers AGE: 75 y.o. GENDER: female : 1950 Subjective: HISTORY of PRESENT ILLNESS HPI Rosa Myers is a 75 y.o. female who presents for a wound consult. HPI: 75 y.o. female who presents to the emergency department with chief complaint of abnormal blood counts. Patient was sent to us from her shelter for lab drawl that shows hemoglobin of [...] with soap and water, pat dry, leave DINING ROOM HOST/HOSTESS daily and PRN Left heel Stage 2 [...] apply ET mix TID and PRN, leave DINING ROOM HOST/HOSTESS -continue ICU bed -Q2hr/PRN turns -glide sheets for T&R -continence checks Q1-2 Hrs/PRN Nutritional support Wound Care to follow Recommend to follow up at [facility] wound care center after hospital discharge. Any questions or concerns please secure chat "[facility] wound/ostomy". 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 She was admitted to hospital on ICU floor given Vent status but followed by hospital medicine, pulmonology and nephrology during stay. Cryptological Technician consulted for management of tube feeding = [...] History: Medical History[1] LABS: CBC: Recent Labs 06/04/25 0432 06/05/25 0306 06/06/25 0514 WBC 6.2 5.7 5.9 RBC 2.88* 2.93* 2.84* HGB 7.4* 7.6* 7.2* HCT 23.8* 24.8* 24.5* MCV 82.6 84.6 86.3 RDW 19.5* 19.4* 19.4* PLT 247 234 197 BMP: Recent Labs 06/04/252 06/05/25 0306 06/06/25 0514 NA 130* 137 134* K 3.4* 3.9 3.7 CL 93* 100 98 CO2 26 27 26 BUN 43* 18 30* CREATININE 3.51* 1.79* 2.79* GLUCOSE 147* 67* 145* CALCIUM 9.0 8.9 9.0 ANIONGAP 11 10 10 LIVER PROFILE: Recent Labs 06/04/252 06/05/25 0306 06/06/25 0514 AST 19 21 [...] 72 hours. Objective: Vitals: BP (!) 111/42 [facility] 06-21-2025 Nurse Note Order to remove tunneled central venous catheter. Lab values and allergies reviewed. Order verified. Patient placed supine, and dressing removed. Line site prepared with sterile towels and antiseptic spray. Sutures removed. Breathing instructions given. Line removed on exhalation. A 6 greek 23 cm tunneled central venous catheter was removed from the patient's left internal jugular vein. Manual pressure was held for 5 minutes. No bleeding or hematoma noted. Sterile occlusive dressing placed. Patient tolerated the procedure well. RN updated. 1.8L removed Tolerated well Patient Name: Rosa Myers Patient : 1950 Acct: [id number] Date of Admission: 06/01/2025 Room/Bed: / A [...] Results Component Value Date/Time WBC 6.1 06/20/2025 050 HGB 7.8 (L) 06/20/2025 050 HCT 25.2 (L) 06/20/2025 050 PLT 240 06/20/2025 0506 NA 135 (L) 06/20/2025 050 K 3.9 06/20/2025 050 CL 97 (L) 06/20/2025 0506 CO2 26 06/20/2025 050 BUN 35 (H) 06/20/2025505 CREATININE 2.85 (H) 06/20/2025505 CALCIUM 9.1 06/20/2025 050 IV Drips and Rate/Dose Continuous Meds[3] Safety - Before each treatment: Dialysis Machine No.: [id number] RO Machine Number: [id number] Dialyzer Lot No.: [id number] Tubing Lot Number: [id number] [employer] Secure: Yes Venous Parameters Set: Yes Arterial Parameters Set: Yes NS Bag: Yes Saline Line Double Clamped: Yes Dialyzer: Nipro Prime Volume (mL): 200 mL RO Machine Number: [id number] RO Machine Log Sheet Completed: Yes Machine Alarm Self Test: Completed, Passed (06/20/25931) Air Foam Detector: Tested, Proper Function, pH Reading Extracorporeal Circuit Tested for Integrity: Yes Machine Conductivity: 13.9 Manual Conductivity: 13.8 Manual Ph: 7.2 Bleach Test (Neg): Yes Bath Temperature: 36 C (96.8 F) Conductivity Meter Serial #: [id number] Machine Functioning Alarm Free? Yes Dialysis Bath: K+ (Potassium): 3 Ca+ (Calcium): 2.5 Na+ (Sodium): 137 HCO3 (Bicarb): 35 Bicarbonate Concentrate Lot No.: [id number] Acid Concentrate Lot No.: [id number] Chlorine Testing - Before each treatment and every 4 hours: Time On: 931 Time Off: 1305 Treatment Goal: 2L Weight [...] -- 65 -- 100 % -- 06/20/25 0825 -- -- -- 63 18 99 % -- 06/20/25 0329 -- -- -- 65 18 99 % -- 06/19/25 2315 -- -- -- 66 23 99 % [...] Name: Rosa Myers Patient : 1950 Acct: [id number] Date of Admission: 06/01/2025 [facility] A Code Status: Full Code Allergies: Allergies[1] [...] Lab Results Component Value Date/Time WBC 6.3 06/18/2025 0647 HGB 7.6 (L) 06/18/2025 0647 HCT 24.4 (L) 06/18/2025 0647 PLT 237 06/18/2025 0647 NA 133 (L) 06/18/2025 0647 K 4.4 06/18/2025 0647 CL 98 06/18/2025 0647 CO2 24 06/18/2025 0647 BUN 46 (H) 06/18/2025 0647 CREATININE 3.41 (H) 06/18/2025 0647 CALCIUM 8.9 06/18/2025 0647 IV Drips and Rate/Dose Continuous Meds[3] Safety - Before each treatment: Dialysis Machine No.: [id number] RO Machine Number: [id number] Dialyzer Lot No.: [id number] Tubing Lot Number: [id number] [employer] Secure: Yes Venous Parameters Set: Yes Arterial Parameters Set: Yes NS Bag: Yes Saline Line Double Clamped: Yes Dialyzer: Nipro Prime Volume (mL): 200 mL RO Machine Number: [id number] RO Machine Log Sheet Completed: Yes Machine Alarm Self Test: Completed, Passed (06/18/25 09) Air Foam Detector: Tested, Proper Function, pH Reading Extracorporeal Circuit Tested for Integrity: Yes Machine Conductivity: 13.9 Manual Conductivity: 14 Manual Ph: 7.2 Bleach Test (Neg): Yes Bath Temperature: 36 C (96.8 F) Conductivity Meter Serial #: [id number] Machine Functioning Alarm Free? Yes Dialysis Bath: K+ (Potassium): 3 Ca+ (Calcium): 2.5 Na+ (Sodium): 137 HCO3 (Bicarb): 35 Bicarbonate Concentrate Lot No.: [id number] Acid Concentrate Lot No.: [id number] Chlorine Testing - Before each treatment and every 4 hours: Time On: 0942 Time Off: 1342 Treatment Goal: 2L Weight [...] (mmHg) TMP DFR Access Visible Intra-Hemodialysis Comments 06/18/2542 350 mL/min 350 ml/hr -110 mmHg 130 [...] 0942 (!) 113/42 -- 54 -- -- 06/18/25 0915 (!) 110/41 -- -- -- -- 06/18/25 0914 -- 36.8 C (98.2 F) 56 14 97 % 06/18/25 0824 -- -- -- 21 98 % 06/18/25 0503 -- -- 69 15 96 % 06/18/25 0012 -- -- 65 18 97 % 06/18/25 0002 116/50 -- -- -- -- 06/17/25 2333 118/65 -- -- -- -- 06/17/25 2331 (!) 81/58 -- -- -- -- 06/17/252004 [...] Name: Rosa Myers Patient : 1950 Acct: [id number] Date of Admission: 06/01/2025 Room/Bed: 222-04/222-04 A [...] 0836 Alert (0) -- Regular T-Piece Diminished Pale;[place] Warm;Dry Soft;Nondistended Active Other (Comment) 06/15/25 1318 Alert (0) x2 Regular T-Piece Diminished Pale;[place] Warm;Dry Soft;Nondistended Active Other (Comment) Labs Lab [...] - Before each treatment: Dialysis Machine No.: [id number] RO Machine Number: [id number] Dialyzer Lot No.: [id number] Tubing Lot Number: [id number] All Connections Secure: Yes Venous Parameters Set: Yes Arterial Parameters Set: Yes NS Bag: Yes Saline Line Double Clamped: Yes Dialyzer: Nipro Prime Volume (mL): 200 mL RO Machine Number: [id number] RO Machine Log Sheet Completed: Yes Machine Alarm Self Test: Completed, Passed (06/15/25906) Air Foam Detector: Tested, Proper Function, pH Reading Extracorporeal Circuit Tested for Integrity: Yes Machine Conductivity: 13.6 Manual Conductivity: 13.8 Manual Ph: 7.5 Bleach Test (Neg): Yes Bath Temperature: 36 C (96.8 F) Conductivity Meter Serial #: [id number] Machine Functioning Alarm Free? Yes Dialysis Bath: K+ (Potassium): 3 Ca+ (Calcium): 2.5 Na+ (Sodium): 137 HCO3 (Bicarb): 35 Bicarbonate Concentrate Lot No.: [id number] Acid Concentrate Lot No.: [id number] Chlorine Testing - Before each treatment and every 4 hours: Time On: 906 Time Off: 1307 Treatment Goal: 2L Weight [...] 600 Yes LVSD, watching tv, Clyde Singh BELLMAN at bedside 06/15/25 1100 350 mL/min -130 [...] F) Oral 74 -- 100 % -- 06/15/2502 -- -- -- -- -- -- 1.651 m (5' 5") 06/15/25 0735 -- -- -- 74 22 100 % -- 06/15/255 -- -- -- 75 (!) 28 100 % -- 06/15/25321 -- -- -- 75 23 100 % -- 06/14/25 2303 -- -- -- 68 (!) 32 100 % -- 06/14/252257 -- -- -- 68 18 100 % -- 06/14/254 (!) 119/46 -- -- 70 -- 100 % -- 06/14/25 2100 -- -- -- 72 16 100 % -- 06/14/251958 -- -- -- 66 17 100 % -- 06/14/251957 -- -- -- 63 17 100 % -- 06/14/251950 -- -- -- 64 17 100 % -- 06/14/255 -- -- -- 64 -- 100 % [...] Name: Rosa Myers Patient : 1950 Acct: [id number] Date of Admission: 06/01/2025 Room/Bed: 222-04/222-04 A [...] (0) REJI Regular Other (Comment) T-Piece Diminished [place] Warm;Dry Soft Active Generalized Non-pitting 06/13/25 1115 -- -- -- -- -- -- -- -- -- Active Generalized Non-pitting 06/13/25 1536 Alert (0) REJI Regular -- T-Piece -- [place] Warm;Dry Soft Active Generalized Non-pitting Labs Lab Results Component Value Date/Time WBC 7.2 06/13/2025432 HGB 8.4 (L) 06/13/2025 043 HCT 26.6 (L) 06/13/2025 043 PLT 235 06/13/2025432 NA 134 (L) 06/13/2025 043 K 3.5 06/13/2025432 CL 97 (L) 06/13/2025 043 CO2 25 06/13/2025 043 BUN 39 (H) 06/13/2025 043 CREATININE 3.37 (H) 06/13/2025 0433 CALCIUM 9.3 06/13/2025 0433 IV Drips and Rate/Dose Continuous Meds[3] Safety - Before each treatment: Dialysis Machine No.: [id number] RO Machine Number: [id number] Dialyzer Lot No.: [id number] Tubing Lot Number: [id number] All Connections Secure: Yes Venous Parameters Set: Yes Arterial Parameters Set: Yes NS Bag: Yes Saline Line Double Clamped: Yes Dialyzer: Nipro Prime Volume (mL): 200 mL RO Machine Number: [id number] RO Machine Log Sheet Completed: Yes Machine Alarm Self Test: Completed, Passed (1115) (06/13/25 1115) Air Foam Detector: Tested, pH Reading, Proper Function Extracorporeal Circuit Tested for Integrity: Yes Machine Conductivity: 13.9 Manual Conductivity: 13.8 Manual Ph: 7.2 Bleach Test (Neg): Yes Bath Temperature: 36 C (96.8 F) Conductivity Meter Serial #: [id number] Machine Functioning Alarm Free? Yes Dialysis Bath: K+ (Potassium): 3 Ca+ (Calcium): 2.5 Na+ (Sodium): 137 HCO3 (Bicarb): 35 Bicarbonate Concentrate Lot No.: [id number] Acid Concentrate Lot No.: [id number] Chlorine Testing - Before each treatment and [...] 150 mmHg 80 600 Yes bfr increased, medical staff manager at bedside for meds 06/13/25 1145 400 [...] -150 mmHg 170 mmHg 70 600 Yes medical staff manager at bedside for routine glucose check 06/13/25 [...] 68 -- 100 % 06/13/25 1119 (!) 36.7 C (98.1 F) Oral 62 20 99 % 06/13/25 1111 (!) 107 -- -- 65 (!) 26 100 % [...] heel, Elbows, Occiput and ears all intact. [place] and blanchable tissues noted to right heel. Pt currently followed by Wound AIR AND MISSI[employer] DEFENSE CREWMEMBER group for wounds to forehead, nose, left heel, sacrum, right medial thigh, and MASD to sacrum, and fungal dermatitis to abdominal folds. For the above wound assessment and treatment plan, please see Wound/Ostomy AIR [employer]SI[employer] DEFENSE CREWMEMBER progress notes. Prevention Measures in place, including: [place] sheet with pillows/wedges, Foam heel protector (obtained [...] tolerated procedure well. Will transfer back to nsg unit. [facility], verbal consent was obtained. Patient was placed supine on exam table prepped and draped in sterile fashion. Telemetry monitors placed, vitals monitored. 1.6L removed with tx, UF goal decreased due to BP trending downward Overall tolerated well No s/s of infection with dressing change Patient Name: Rosa Myers Patient : 1950 Acct: [id number] Date of Admission: 06/01/2025 Room/Bed: [facility] A Code Status: Full Code Allergies: Allergies[1] [...] 06/11/2025551 HCT 25.8 (L) 06/11/2025551 PLT 235 06/11/202552 NA 132 (L) 06/11/2025551 K 3.9 06/11/2025551 CL 99 06/11/2025551 CO2 22 (L) 06/11/2025551 BUN 49 (H) 06/11/2025551 CREATININE 4.10 (H) 06/11/2025551 CALCIUM 9.2 06/11/2025551 IV Drips and Rate/Dose Continuous Meds[3] Safety - Before each treatment: Dialysis Machine No.: [id number] RO Machine Number: [id number] Dialyzer Lot No.: [id number] Tubing Lot Number: [id number] All Connections Secure: Yes Venous Parameters Set: Yes Arterial Parameters Set: Yes NS Bag: Yes Saline Line Double Clamped: Yes Dialyzer: Nipro Prime Volume (mL): 200 mL RO Machine Number: [id number] RO Machine Log Sheet Completed: Yes Machine Alarm Self Test: Completed, Passed (06/11/25 1005) Air Foam Detector: Tested, Proper Function, pH Reading Extracorporeal Circuit Tested for Integrity: Yes Machine Conductivity: 13.8 Manual Conductivity: 13.8 Manual Ph: 7.5 Bleach Test (Neg): Yes Bath Temperature: 36 C (96.8 F) Conductivity Meter Serial #: [id number] Machine Functioning Alarm Free? Yes Dialysis Bath: K+ (Potassium): 3 Ca+ (Calcium): 2.5 Na+ (Sodium): 137 HCO3 (Bicarb): 35 Bicarbonate Concentrate Lot No.: [id number] Acid Concentrate Lot No.: [id number] Chlorine Testing - Before each treatment and [...] mmHg 110 600 Yes LVSD, Clyde Singh BELLMAN at bedside, no sign of acute distress [...] Oral 63 20 100 % -- -- 06/11/25 0323 -- -- -- 66 22 97 % -- -- 06/11/25 0321 -- -- -- 76 14 100 % -- -- 06/10/25 2320 -- -- -- 79 25 100 % -- -- 06/10/258 -- -- -- 67 25 100 % -- -- 06/10/252101 123/76 37.3 C (99.1 F) Oral 67 [...] heel, Elbows, Occiput and ears all intact. [place] and blanchable tissues noted to right heel. Pt currently followed by Wound [employer] CREW[employer] group for wounds to forehead, nose, left heel, sacrum, right medial thigh, and MASD to sacrum, and fungal dermatitis to abdominal folds. For the above wound assessments and treatment plan, please see Wound/Ostomy [employer] DEFENSE CREWMEMBER progress notes. Prevention Measures in place, including: [place] sheet with pillows/wedges, Foam heel protector (obtained [...] Name: Rosa Myers Patient : 1950 Acct: [id number] Date of Admission: 06/01/2025 Room/Bed: 222-04/222 A Code Status: Full Code Allergies: Allergies[1] [...] Results Component Value Date/Time WBC 6.2 06/04/2025 043 HGB 7.4 (L) 06/04/2025 043 HCT 23.8 (L) 06/04/2025 043 PLT 247 06/04/2025 043 NA 130 (L) 06/04/2025 043 K 3.4 (L) 06/04/2025 043 CL 93 (L) 06/04/2025 043 CO2 26 06/04/2025 043 BUN 43 (H) 06/04/2025 043 CREATININE 3.51 (H) 06/04/2025 043 CALCIUM 9.0 06/04/2025 043 IV Drips and Rate/Dose Continuous Meds[3] Safety - Before each treatment: Dialysis Machine No.: [id number] Machine Number: [id number] Dialyzer Lot No.: [id number] Tubing Lot Number: [id number] All Connections Secure: Yes Venous Parameters Set: Yes Arterial Parameters Set: Yes NS Bag: Yes Saline Line Double Clamped: Yes Dialyzer: Nipro Prime Volume (mL): 200 mL RO Machine Number: [id number] RO Machine Log Sheet Completed: Yes Machine Alarm Self Test: Completed, Passed (06/04/25 152) Air Foam Detector: Tested, Proper Function, pH Reading Extracorporeal Circuit Tested for Integrity: Yes Machine Conductivity: 13.9 Manual Conductivity: 13.6 Manual Ph: 7.4 Bleach Test (Neg): Yes Bath Temperature: 36 C (96.8 F) Conductivity Meter Serial #: [id number] Machine Functioning Alarm Free? Yes Dialysis Bath: K+ (Potassium): 4 Ca+ (Calcium): 2.5 Na+ (Sodium): 137 HCO3 (Bicarb): 35 Bicarbonate Concentrate Lot No.: [id number] Acid Concentrate Lot No.: [id number] Chlorine Testing - Before each treatment and [...] needs, no sign of acute distress 06/04/25 192 350 mL/min -- -130 mmHg 130 mmHg 110 600 Yes tx completed, blood rinsed back per policy, denies needs, no sign of acute distress Vital Signs Patient Vitals for the past 24 hrs: BP Temp Pulse Resp SpO2 06/04/251932 135/61 36.7 C (98 F) 62 23 100 % 06/04/251922 119/54 -- 60 17 100 % 06/04/251914 137/54 -- 69 17 100 % 06/04/25 1900 (!) 140/48 -- 58 18 100 % 06/04/251844 (!) 126/47 -- 59 17 100 % 06/04/251834 123/96 -- 63 17 100 % 06/04/250 123/63 -- 59 17 100 % 06/04/251814 130/61 -- 60 17 100 % 06/04/25 [...] 2357 -- -- 61 14 100 % 09/07/25 2210 -- -- 59 14 100 % 06/03/252201 116/55 -- 73 19 100 % 06/03/252025 -- -- 60 15 100 % Post-Dialysis [...] Name: Rosa Myers Patient : 1950 Acct: [id number] Date of Admission: 06/01/2025 Room/Bed: 222-04/222-04 A [...] Time out performed prior to access at 2120. Report Received from Primary RN at 1999. Primary RN (First Initial, Last Name, Title): Cuca De Jesus RN Incapacitated Nurse Education Completed: Yes, Cuca Todd RN HBsAg ONLY: Date Drawn: June 01, [...] Generalized Edema RLE Edema LLE Edema 06/01/25 1919 -- Diminished -- -- Soft;Rounded Active Right lower extremity;Left lower extremity -- +1 +1 06/01/25 2100 Alert (0) -- [place] Warm;Dry Soft -- Generalized -- Non-pitting Non-pitting [...] - Before each treatment: Dialysis Machine No.: [id number] RO Machine Number: [id number] Dialyzer Lot No.: [id number] Tubing Lot Number: [id number] All Connections Secure: Yes Venous Parameters Set: Yes Arterial Parameters Set: Yes NS Bag: Yes Saline Line Double Clamped: Yes Dialyzer: Nipro Prime Volume (mL): 200 mL RO Machine Number: [id number] RO Machine Log Sheet Completed: Yes Machine Alarm Self Test: Completed, Passed (2119) (06/01/252099) Air Foam Detector: Tested, Proper Function Extracorporeal Circuit Tested for Integrity: Yes Machine Conductivity: 13.8 Manual Conductivity: 13.8 Manual Ph: 7.6 Bleach Test (Neg): Yes Bath Temperature: 36 C (96.8 F) Conductivity Meter Serial #: [id number] Machine Functioning Alarm Free? Yes Dialysis Bath: K+ (Potassium): 3 Ca+ (Calcium): 2.5 Na+ (Sodium): 137 HCO3 (Bicarb): 35 Bicarbonate Concentrate Lot No.: [id number] Acid Concentrate Lot No.: [id number] Chlorine Testing - Before each treatment and every 4 hours: Time On: 2128 Time Off: 99 Treatment Goal: 3.5L 1st check: less than 0.1 ppm at: 2100 2nd check: less than 0.1 ppm at: 230 3rd check: Not Applicable (if greater than 0.1 ppm, then check every 30 minutes from secondary) Access Flows and Pressures Patient Vitals for the past 8 hrs: Blood Flow Rate (mL/min) Ultrafiltration Rate (ml/hr) Arterial Pressure (mmHg) Venous Pressure (mmHg) TMP DFR Access Visible Intra-Hemodialysis Comments 09/05/25 2129 200 mL/min 1140 ml/hr -50 mmHg 70 [...] unspecified type [3] documented in this encounter [facility] 06-21-2025 Miscellaneous Notes Confirmed pickup time of 5pm by transport [facility] at phone number [phone]. Location of facility drop off is to return back to [facility]. Facility notified via [facility], [facility] notified on secure chat. Transport requested 5PM in [facility]. Awaiting time confirmation. Discharge order noted. Anticipate tunneled line removal around 2PM today. Tasked EQUIPMENT PROCESSOR to send discharge paperwork and MAR to [facility]. Tasked EQUIPMENT PROCESSOR to arrange ambulance/ ACLS transport with trach/ vent/ O2 capabilities for return to [facility]. Transport arranged for 5pm. Updated bedside RN. Discharge med list transmitted to RETURN BACK TO [facility] via [facility] per [facility] request. Care Management Progress Note Short Medical why still here: chronic trach/ vent/ PEG/ hemodialysis. IV antibiotics are complete today. Need to remove tunneled line that was placed for IV antibiotics. Dr Amaya aware. Planned Discharge Disposition: [facility]/Residential Care ([facility] bedhold, no precert needed to return) Barriers/Today we still Wait: Administering IV medications, Procedure (comment) (needs tunneled line removed prior to transfer back to [facility]) Length of Stay (Days): 20 GMLOS: 3.9 Care Management Progress Note Short Medical why still here: receiving IV antibiotics through 06/21. SNF unable to accommodate. Planned Discharge Disposition: [facility], [facility] needed to return) Barriers/Today we still Wait: Administering IV medications Length of Stay (Days): 19 GMLOS: 3.9 Care Management Progress Note Short Medical why still here: receiving IV antibiotics through 06/21. SNF unable to accommodate. Planned Discharge Disposition: [facility] Care ([facility], no precert needed to return) Barriers/Today we still Wait: Administering IV medications Length of Stay (Days): 18 GMLOS: 3.9 manager skilled to follow for discharge planning. Care Management Progress Note Short Medical why still here: receiving IV antibiotics through 06/21. SNF unable to accommodate. Planned Discharge Disposition: [facility]/Residential Care ([facility]) Barriers/Today we still Wait: Administering IV medications Length of Stay (Days): 17 GMLOS: 3.9 manager skilled to follow for discharge planning. Patient remains stable on chronic vent. Discussed with Marion MICHELE today in ICU, no new overnight concerns. Nursing facility unable to accept patient with tunneled line for IV antibiotics due to staffing. Patient will remain at [facility] through 06/21 to complete Abx course. Patient will not be seen by Pulmonary over the weekend. Please notify ICU attending with any urgent needs. Care Management Progress Note Short Medical why still here: chronic trach/ vent, dialysis, PEG/ tube feeds. Requires IV antibiotics through 06/21. Facility is unable to accept patient with a tunneled line for IV antibiotics due to lack of tire service supervisor on site. IP CONSULT TO WOUND PREVENTION INPATIENT CONSULT TO WOUND CARE PROVIDERS IP CONSULT TO PULMONOLOGY IP CONSULT TO DIETITIAN IP CONSULT TO NEPHROLOGY IP CONSULT TO INFECTIOUS DISEASES IP CONSULT TO GERIATRICS Planned Discharge Disposition: [facility] Care ([facility]) Barriers/Today we still Wait: Administering IV medications Length of Stay (Days): 14 GMLOS: 3.9 manager skilled to follow for discharge planning. Interventional Radiology Brief Postprocedure Note Procedure: IR cvc tunneled central line placement Preprocedure Diagnosis: Polymicrobial infection Postprocedure Diagnosis: no change Staff: Staff Role Anjum Fam MD Radiologist Oscar Moore, customs brokerage agent Nurse Sagar Jovel RN Radiology Nurse Dolly Mccabe, RT (R) Metal Melter Iliana Salmon PA-C Physician Energy Project Manager Description of procedure: left chest tunneled central [...] of cefepime. Updated ID. Planned Discharge Disposition: [facility]/Residential Care [facility] Barriers/Today we still Wait: Administering IV medications, Tool Crib Supervisor recommendations (comment), Post-discharge arrangement completion (comment) Length of Stay (Days): 13 GMLOS: No GMLOS Documented manager skilled to follow for discharge planning. Faxed OPAT to [facility]. OPAT not received. Emailed OPAT to [email or web address] as requested. Care Management Progress Note Short Medical why still here: chronic trach/ vent/ PEG/ hemodialysis. New tunneled line placed. Plan for hemodialysis today. ID, nephrology, and pulmonology following. Planned Discharge Disposition: [facility]/Residential Care ([facility]) Barriers/Today we still Wait: Administering IV medications, Tool Crib Supervisor recommendations (comment) (awaiting ID plan for antibiotics, awaiting nephrology clearance for discharge) Length of Stay (Days): 12 GMLOS: No GMLOS Documented manager skilled to follow for discharge planning. Sent updated notes to [facility] per [facility] request. Await review and response regarding ability to accept. [facility] notified. Care Management Progress Note Short Medical why still here: chronic trach/ vent/ PEG/ hemodialysis. Awaiting new tunneled line for dialysis. On Dificid and IV antibiotics per ID. Nephrology following. Planned Discharge Disposition: [facility]/Residential Care ([facility]) Barriers/Today we still Wait: Administering IV medications, Procedure (comment) (awaiting tunneled line placement) Length of Stay (Days): 11 GMLOS: No GMLOS Documented manager skilled to follow for discharge planning. Care Management Progress Note Short Medical why still here: chronic trach/ vent/ PEG/ hemodialysis. Awaiting new tunneled line for dialysis. On Dificid and IV antibiotics per ID. Nephrology following. Planned Discharge Disposition: [facility]/Residential Care ([facility]) bedhold, no precert needed. Barriers/Today we still Wait: Administering IV medications, Clinical stability, Symptomatic control Length of Stay (Days): 10 GMLOS: No GMLOS Documented manager skilled to follow for discharge planning. Care Management Progress Note Short Medical why still here: C.diff pos, chronic trach/peg, pending HD cath change r/t infection. DCP- return to [facility]. Planned Discharge Disposition: [facility]/Residential Care Barriers/Today we still Wait: Symptomatic control, Procedure (comment), Clinical stability Length of Stay (Days): 7 GMLOS: No GMLOS Documented Care Management Progress Note Short Medical why still here: ongoing C Diff diarrhea. Hemodialysis MWF. Chronic trach /vent/ PEG. Receiving tube feeds. On IV antibiotics. To have dialysis cath changed out. Planned Discharge Disposition: [facility]/Residential Care ([facility]) bedhold, no precert needed to return Barriers/Today we still Wait: Administering IV medications, Clinical stability, Symptomatic control Length of Stay (Days): 6 GMLOS: No GMLOS Documented manager skilled to follow for discharge planning. This RN [...] removed. Line removed on exhalation. A 14 greek 23 cm tunneled hemodialysis catheter was removed [...] tube feeds. Hemoglobin 7.2 Planned Discharge Disposition: [facility]/Residential Care ([facility]) bedhold, no precert needed Barriers/Today we still Wait: Clinical stability, Symptomatic control Length of Stay (Days): 5 GMLOS: No GMLOS Documented manager skilled to follow for discharge planning. Care Management Progress Note Short Medical why still here: anemia. PRBC ordered. Hemoglobin was 7.6 most recently. Continues with C Diff diarrhea. Chronic trach/ vent/ PEG/ tube feeds. Planned Discharge Disposition: [facility]/Residential Care patient is a bedhold at [facility] Barriers/Today we still Wait: Administering IV medications, Clinical stability, Symptomatic control Length of Stay (Days): 4 GMLOS: No GMLOS Documented manager skilled to follow for discharge planning. Return referral placed to [facility] per [facility] request. Await review and response regarding ability to accept. [facility] notified. Care Management Progress Note Short Medical why still here: anemia. Hemoglobin improved. Receiving hemodialysis. Planned Discharge Disposition: [facility]/Residential Care patient is from [facility], tasked [facility] to send a referral for her to return. Awaiting response. Barriers/Today we still Wait: Administering IV medications, Clinical stability, Symptomatic control, Tool Crib Supervisor recommendations (comment) Length of Stay (Days): 3 GMLOS: No GMLOS Documented manager skilled to follow for discharge planning. 12:14 PM UPDATE: patient is a medicaid bedhold at [facility] and may return whenever she is medically ready. documented in this encounter [facility] 06-21-2025 Note [facility] 06-21-2025 Hospital course Narrative Discharge Summary Rosa [...] 75-year-old female who is from extended-care facility[facility], admitted to [facility] on June 01, 2025 with low blood [...] at discharge. She will be [facility] on 06/21, look for discharge medications below. [...] Your Medications These medications were sent to [facility] [address] [facility] [address] Hours: Wednesday to Wednesday 10 am to [...] Complexity: follow up within 7-14 calendar days (30296) [] Severe Complexity: follow up within 7 calendar days (44803) FOLLOW UP TESTING, PENDING RESULTS OR REFERRALS AT TRANSITIONAL CARE VISIT: [] Yes [] No PENDING STUDIES: DISPOSITION: FACILITY/HOME CARE AGENCY NAME: Follow up with [facility] - [address] [address] on INSTRUCTIONS TO MA/SW: Please [...] 06/21/2025, 11:09 AM documented in this encounter [facility] 06-14-2025 Hospital Discharg e instructions Sagar Jovel [...] a call between 8am and 5pm. - [facility] Radiology - [phone] - [facility] Radiology - [phone] - For questions after hours, please call [phone] and ask for the on-call Angiography Radiologist. [...] TERRA Patient Mental Status: alert IV Access: TERRA IV Access: Dialysis Catheter - site: internal jugular right, condition patent and no redness, insertion date: 06/12/2025 Nursing Mobility/ADLs: Walking Total assistance Transfer Total assistance Bathing Total assistance Dressing Total assistance Toileting Total assistance Feeding Total assistance Hand I Thermal Cutter Total assistance Med Delivery no Wound Care [...] applicable) Name: Address: Dialysis Schedule: Phone: Fax: Sequencing Machine Operator/Esthetician/Skin Therapist signature: {E-signature:[id number]} PHYSICIAN SECTION Name: Rosa Myers Prognosis: fair [...] to a nursing facility directly from an [facility] or a unit of a [facility] that is not operated by or licensed by [facility] under section 5119.14 or 5160-3-15.1 5 The individual requires the level of services provided by a nursing facility for the condition for which he or she was treated in the hospital and, Physician Certification: I certify the above information and transfer of Rosa Myers is necessary for the continuing treatment of the diagnosis listed and that she requires senior living facility for less than 30 days. Update Admission H&P: No change in H&P PHYSICIAN SIGNATURE: documented in this encounter [facility] 06-14-2025 Note Pt tolerated procedu re well. Tunneled central line placed. Transfer pt to ICU. [facility] 06-14-2025 Note IR Procedures: Rosa is here from ICU for a tunneled central line placement. History, allergies, medications and lab results reviewed. Informed consent has been signed. Pt is on a monitor. Patient ready for the procedure. [facility] [facility] 06[facility]2025 Consult note Associated Order (s): IP CONSULT TO GERIATRICS [facility] Geriatric Medicine Inpatient Consult Service Admission Date: 06/01/2025 Admission Status: INPATIENT Chief Complaint: Chief Complaint Patient presents with Other Sent from [facility] for low HGB, [facility] [...] term use while hospitalized Debility --lives at [facility] --candelaria lift at baseline I spent total [...] polyneuropathy, CHF presented to the hospital from [facility] with complaints of anemia, Hgb 6.5. Admitted [...] 3 times on 06/[address] [facility] 04/18/25. Discharge med list reviewed. Discharged on Prozac 10mg dialy. Nursing Delirium Screen (Nu-Desc): Nursing Delirium Symptom Checklist Total Score: 0 Conversation with patient: Patient calm, just returned from IR for tunneled cath. She mouths words, not speaking. States she is in [place], month May and year 2024. She shrugs her shoulders when asked if she is sleeping or if she has been seeing anything unusual. Conversation with caregiver: Nurse at [facility]. May have anxiety with frequency of suction. [...] 543 ms QTC Interval 552 ms P [place] 0 degrees QRS [place] -11 degrees T Wave [place] 188 degrees CA Interval 65 ms POCT glucose meter Collection Time: 06/14/25 4:47 PM Result Value Ref Range Glucose 100 70 - 100 mg/dL No results found for: "TSH" No components found for: "B12" No results found for: "VITD25" Reviewed: active problem list, medication list, allergies, social history, notes from last encounter, notes from last several encounters, lab results, imaging Follow-up: will follow with you Diana Zabala APRN - BELLMAN 06/14/25 5:12 PM [1] No Known Allergies [...] Nebulization, q6h PRN, Neelima Hanks APRN - BELLMAN atorvastatin (Lipitor) tablet 40 mg, 40 mg, [...] Units, 1,200-2,000 Units, IntraCATHeter, PRN, RENITA Clifford BELLMAN, 1,400 Units at 06/11/25 1404 heparin injection 1,200-2,000 Units, 1,200-2,000 Units, IntraCATHeter, PRN, Mi Singh APRN - BELLMAN, 1,400 Units at 06/11/25 1402 heparin injection 1,200-2,000 Units, 1,200-2,000 Units, IntraCATHeter, PRN, Yamil Newby MD heparin injection 1,200-2,000 Units, 1,200-2,000 Units, IntraCATHeter, PRN, Yamil Newby MD heparin injection 5,000 Units, 5,000 Units, SubCUTAneous, 2 times per day, Sharyn Amaya MD, 5,000 Units at 06/14/25 09 insulin glargine (Lantus) injection 25 Units, 25 Units, SubCUTAneous, BID, Sharyn Amaya MD, 25 Units at 06/14/2518 Insulin Lispro (Humalog) injection 0-6 Units, 0-6 Units, SubCUTAneous, q6h, Grzegorz Chatterjee MD, 1 Units at 06/14/25 1202 ipratropium-albuterol (Duo-Neb) 0.5-2.5 mg/3 mL nebulizer solution 3 mL, 3 mL, Nebulization, q4h, Neelima Hanks, SOCK LINING STITCHER - BELLMAN, 3 mL at 06/14/25 1551 melatonin tablet 3 mg, 3 mg, Per G Tube, Nightly PRN, Diana Zabala APRN - BELLMAN miconazole (Micotin) 2 % powder, , Topical, BID, Patrica Weinstein APRN - BELLMAN, Given at 06/14/25917 midodrine (Proamatine) tablet 10 [...] from the original note were not included. [facility] - Infectious Diseases Attending Consult Note Reason [...] Patient Unable To Answer (03/08/2025) Received from [facility] Medical Overall Financial Resource Strain (CARDIA) Difficulty of Paying Living Expenses: Patient unable to answer Food Insecurity: Patient Unable To Answer (03/08/2025) Received from [facility] Medical Hunger Vital Sign Worried About Running Out of Food in the Last Year: Patient unable to answer Ran Out of Food in the Last Year: Patient unable to answer Transportation Needs: No Transportation Needs (06/01/2025) PRAPARE - Transportation Lack of Transportation (Medical): No Lack of Transportation (Non-Medical): No Physical Activity: Inactive (07/11/2024) Received from [facility] Exercise Vital Sign Days of Exercise per Week: 0 days Minutes of Exercise per Session: 0 min Stress: No Stress Concern Present (04/18/2025) Received from [facility]ational [facility] - Occupational Stress Questionnaire Feeling of Stress : Only a little Social Connections: Unknown (03/08/2025) Received from [facility] Medical Social Connection and Isolation Panel [NHANES] Frequency of Communication with Friends and Family: Patient unable to answer Frequency of Social Gatherings with Friends and Family: Patient unable to answer Attends Roman [employer] Services: Patient unable to answer Active Member [...] Violence - At Risk (03/07/2025) Received from [facility] Medical Domestic Abuse Assessment Do you feel safe in your relationships at home?: Yes Physical Abuse: Denies [facility] Domestic Abuse - Type of Abuse: Not on file [facility] Domestic Abuse - Time Frame: Not on file [facility] Domestic Abuse - Signs and Symptoms: Not [...] -- 99 % -- 06/07/25 0850 (!) 122/44 36.7 C (98 F) Oral 64 -- [...] and oriented times 3. Labs: Recent Labs 06/05/25 0306 06/06/25 0514 06/07/25 0335 NA 137 134* 133* K 3.9 3.7 3.7 CL 100 98 96* CO2 27 26 26 BUN 18 30* 40* CREATININE 1.79* 2.79* 3.68* GLUCOSE 67* 145* 119* CALCIUM 8.9 9.0 9.4 PROT 6.7 6.5 6.8 BILITOT 0.7 0.5 0.6 ALKPHOS 119 113 123 AST 21 21 19 ALT 13 12 9 Recent Labs 06/05/25 0306 06/06/25 0514 06/07/25 0335 WBC 5.7 5.9 7.4 HGB 7.6* 7.2* 7.5* HCT 24.8* 24.5* 24.4* PLT 234 197 234 Micro: No results for input(s): "COVID19" in the last 72 hours. 06/07/2025 1129 06/07/2025 1142 Aerobic and Anaerobic Culture with Stain [[id number]] Body Fluid from Pleural Cavity, Left In process Component Value No component results 06/07/2025 1129 06/07/2025 1142 Culture, Aerobic Bacteria with Gram Stain [[id number]] Body Fluid from Pleural Cavity, Left In process Component Value No component results 06/07/2025 1129 06/07/2025 1142 Anaerobic culture [[id number]] Body Fluid from Pleural Cavity, Left In process Component Value No component results 06/07/2025 1025 06/07/2025 1034 Blood culture Site #2 - Suspected Infection [[id number]] Blood, Venous In process Component Value No component results 06/07/2025 1014 06/07/2025 1035 Blood culture Site #1 - Suspected Infection [[id number]] Blood, Venous In process Component Value No component results 06/06/2025 1732 06/06/2025 1953 Respiratory culture and Stain [[id number]] (Abnormal) Sputum Preliminary result Component Value Respiratory culture Culture in progress P Gram Stain Result Many Polymorphonuclear leukocytes per low power field Abnormal P Rare Epithelial cells per low power field Abnormal P Moderate Gram negative bacilli Abnormal P Few Gram positive bacilli Abnormal P Rare Gram positive cocci Abnormal P 06/06/2025 1732 06/07/2025 1158 Pneumonia PCR Panel [[id number]] (Abnormal) Sputum Final result Component Value Staphylococcus [...] 06/06/2025 1429 06/06/2025 1434 Culture, Cath Tip [[id number]] Foreign Body from Cannula In process Component Value No component results 06/02/2025 1736 06/02/2025 205 Gastrointestinal PCR Panel [[id number]] Stool from Per Rectum Final result Component [...] DIFFICILE by PCR with Reflex to EIA [[id number]] (Abnormal) Stool from Per Rectum Final result Component Value C. difficile toxin PCR Detected Abnormal 06/02/2025 1736 06/02/20252207 C. difficile Toxins EIA [[id number]] (Abnormal) Stool from Per Rectum Final result Component Value C difficile Toxins A+B, EIA Positive Abnormal Lines: Rt chest old HD cath site tender. Radiography/Echo/Other: US guided thoracentesis - In process [[id number]] Resulted: 06/07/25 1146 Order Status: Sent Updated: 06/07/25 114 This result has not been signed. Information might be incomplete. XR chest 1 view [[id number]] Collected: 06/06/252039 Order Status: Completed Updated: 06/06/252042 [...] PM EDT IR CVC tunneled catheter removal [[id number]] Collected: 06/06/25 154 Order Status: Completed Updated: [...] 3:46 PM EDT XR chest 1 view [[id number]] Collected: 06/01/25 1217 Order Status: Completed Updated: [...] 2.5 mg 2.5 mg Nebulization q6h PRN RENITA Tlyer CNP atorvastatin (Lipitor) tablet 40 mg 40 mg [...] Units 1,200-2,000 Units IntraCATHeter PRN RENITA Clifford BELLMAN 1,600 Units at 06/04/251921 heparin injection 5,000 Units 5,000 Units SubCUTAneous [...] solution 3 mL 3 mL Nebulization q4h Neelima Hanks APRN - BELLMAN 3 mL at 06/07/25 1300 miconazole (Micotin) [...] solution 3 mL 3 mL Nebulization BID RENITA Tyler CNP 3 mL at 06/07/25 0900 stomahesive in petrolatum (ET Mix) Topical PRN RENITA Gtz CNP stomahesive in petrolatum (ET Mix) Topical 3 times per day RENITA Gtz CNP Given at 06/07/25 0558 [4] No Known Allergies [5] No family history on file. Associated Order(s): INPATIENT CONSULT TO WOUND CARE PROVIDERS Images from the original note were not included. [facility] Wound Care CONSULT Note Rosa Myers AGE: 75 y.o. GENDER: female : 1950 Subjective: HISTORY of PRESENT ILLNESS HPI Rosa Myers is a 75 y.o. female who presents for a wound consult. HPI: 75 y.o. female who presents to the emergency department with chief complaint of abnormal blood counts. Patient was sent to us from her shelter for lab drawl that shows hemoglobin of [...] to follow Recommend to follow up at [facility] Outpatient wound care center after hospital discharge. Any questions or concerns please secure chat "[facility] wound/ostomy". Thank you for the consult! I [...] EDT Associated Order(s): IP CONSULT TO PULMONOLOGY [facility], Pulmonary Medicine PULMONARY CONSULTATION NOTE. 06/04/25 CONSULTING PHYSICIAN: Dr Chatterjee. REASON FOR REFERRAL: [facility] Assessment- Chronic respiratory failure Ventilator dependence Trach dependence. History of BL pleural effusions, transudate requiring thoracentesis in the past. Volume overload, ESRD with pulmoanry edema Anemia Recommendations- Continue AC/VC at current settings. Attempted PSV for 15 minutes, patient became anxious as dyspneic, and RR went to 28 and was placed back on previous settings. Unclear of settings at ECF but appears to be vent dependent. Weaning likely limited by volume status, deconditioning, anemia and numerous co-morbidities. OK to send back to ECF from pulmonary standpoint Thank you very much [...] she is on vent 19/04. [facility] Interestingly in review of records in care everywhere, she was supposed to be on vent at night PSV and HELADIO day back when she was at [facility] several months ago. Patient denies acute respiratory complaints. Past Medical History Medical History[1] Past Surgical History Surgical History[2] Allergies Allergies[3] Medications Medication Documentation Review Audit Reviewed by Vashti Kilgore RN (Registered Nurse) on 06/01/25 at 1557 Medication Order Taking? Sig Documenting Provider Last Dose Status atorvastatin (Lipitor) 40 MG tablet [id number] Take 40 mg by mouth daily. Via PEG Historical Provider, Active busPIRone (Buspar) 5 MG tablet [id number] Take 5 mg by mouth 3 times daily. Historical ProviderMD Active carvedilol (Coreg) 12.5 MG tablet [id number] Take 12.5 mg by mouth 2 times daily. Hold before dialysis Historical ProviderMD Active FLUoxetine (PROzac) 20 MG/5ML solution [id number] Take 20 mg by mouth daily. Via PEG Historical ProviderMD Active furosemide (Lasix) 20 MG tablet [id number] Take 20 mg by mouth daily. Via PEG, given on wed/Wednesday for weight gain Historical Provider, Active insulin glargine (Lantus) 100 UNIT/ML injection [id number] Inject 25 Units under the skin 2 times daily. Historical ProviderMD Active Insulin Lispro (Humalog) 100 UNIT/ML solution injection [id number] Inject 2-12 Units under the skin 3 times daily (with meals). Sliding scale: 150-200 = 2 units, 102-250 = 4 units, 251-300 = 6 units, 301-350 = 8 units, 351-400 = 10 units, 401-450 = 12 units Historical ProviderMD Active midodrine (Proamatine) 10 MG tablet [id number] Take 10 mg by mouth 3 times daily. Via PEG, given M-F 1hr prior to dialysis Historical ProviderMD Active pantoprazole (ProtoNix) 20 MG EC tablet [id number] Take 20 mg by mouth every morning (before breakfast). Do not crush, chew, or split. Historical ProviderMD Active Petrolatum ointment [id number] Apply 1 Application topically 2 times daily as needed (forehead itching). Historical ProviderMD Active Social History Social History Tobacco Use [...] m), SpO2 100%. CBC: Recent Labs 06/02/25 0510 06/03/25 0419 06/04/25 0432 WBC 5.1 6.1 6.2 HGB 7.4* 7.2* 7.4* HCT 23.7* 23.3* 23.8* PLT 231 229 247 BMP: Recent Labs 06/02/25 0510 06/03/25 0419 06/04/25431 NA 137 131* 130* K 3.1* 3.3* 3.4* CL 98 95* 93* CO2 28 27 26 BUN 20 31* 43* CREATININE 1.57* 2.39* 3.51* GLUCOSE 94 145* 147* CALCIUM 8.8 8.7* 9.0 MG 2.0 2.0 2.1 HEPATIC: Recent Labs 06/02/25 0510 06/03/2541806/04/25431 AST 23 27 19 ALT 10 11 11 BILITOT 1.1 0.8 0.7 ALKPHOS 129 130 130 Cultures: None Radiology: chest X-ray (personally reviewed and interpreted by me shahana) volume overlaod and trach tube in good position PFT's Pulmonary Functions Testing Results: None in [facility] Leyda Chin MD 1:21 PM 06/04/25 Pulmonary [...] (temporalis), Thigh (quadraceps) Fluid Accumulation: Severe Extremities Institution Director Strength: Normal chopper feeder strength Nutrition Assessment: 75 year old woman with PMHx: CHD, HLD, HTN, DMII(A1C=6.5% 12/18/24), ESRD (Wednesday through Wednesday HD at [facility]). She was admitted to [facility] with progressive dyspnea, required lasix GTT [...] left leg wound. She was transferred to [facility] on 03/07/2025. During stay at [facility] slowly weaning vent support, +Recurrent bilateral pleural effusions. s/p right thoracentesis on 03/21 with -1300 mL removed. s/p left thoracentesis on 03/22 with -600 mL removed. Repeated right thoracentesis on 04/05 with -1175 mL removed. Completed vancomycin for CDiff on 04/01, and started on nystatin through 04/21 for oral candidiasis. She worked with BOTTLE INSPECTOR during admit to [facility] and used the [place] Fifty Six Speaking Valve, remains NPO with all nutrition via PEG (Vital High Protein @ 60 mL/hr rate with Banatrol for loose stooling). She was on a MWF HD schedule and tolerated well. Transferred from [facility] to [facility] on 04/18/25 post HD. She currently presents to [facility] with anemia noted during blood draw., Hgb(6.5). [...] On: Kcal/kg Weight Used for Energy Requirements: [place] Weight for Energy Calculation (kg): 57 kg Total Energy Requirements (kcals/day): 8566-3720 (25-30 kcal/kg IBW) Weight Used for Protein Requirements: [place] Weight in Kg Used for Protein Requirements: [...] lb) Weight Source: Other (Comment) (05/25/25 at [facility]) Admission Body Weight: 103 kg (226 lb) (noted 05/25 at [facility]) Usual Body Weight: 110 kg (242 lb) (per EMR--> 242# 11/27/24; 220# (bed) 03/07/25; 209.7# 04/02/25; 226# 05/25/25) % Weight Change (Calculated): -6.6 [place] Body Weight (lbs) (Calculated): 125 lbs [place] Body Weight (Kg) (Calculated): 57 kg % [place] Body Weight (Calculated): 180.8 % BMI (kg/m2) [...] Enteral Nutrition Raquel Brady RDN, LDN, Contact: *[phone] documented in this encounter [facility] 06-12-2025 Note Pt tolerated procedu re well. Will transfer back to [facility] unit. [facility] 06-08-2025 Note [facility] 06-08-2025 Procedure note Associated Ord er(s): HEMODIALYSIS INPATIENT Patient Name: Rosa Myers Patient : 1950 Acct: [id number] Date of Admission: 06/01/2025 Room/Bed: A Code Status: Full Code Allergies: Allergies[1] [...] 1350 Alert (0) Other (Comment) T-Piece Diminished [place];Pale;Red Warm;Dry Soft;Rounded Active Generalized Non-pitting None None None None lines secure, test passed 06/08/25 1601 -- -- -- Clear -- -- Soft;Rounded Active -- -- None None None None -- 06/08/25 1812 Alert (0) Other (Comment) T-Piece Clear [place];Pale;Red Warm;Dry Soft;Rounded Active Generalized Non-pitting None None [...] - Before each treatment: Dialysis Machine No.: [id number] RO Machine Number: [id number] Dialyzer Lot No.: [id number] RO Machine Log Sheet Completed: Yes Machine Alarm Self Test: Completed, Passed (3277) (06/08/25 1350) Air Foam Detector: Tested, Proper Function, pH Reading Extracorporeal Circuit Tested for Integrity: Yes Machine Conductivity: 13.8 Manual Conductivity: 13.8 Bicarbonate Concentrate Lot No.: [id number] Acid Concentrate Lot No.: [id number] Manual Ph: 7.2 Bleach Test (Neg): Yes Bath Temperature: 36 C (96.8 F) Tubing Lot Number: [id number] Conductivity Meter Serial #: [id number] All Connections Secure: Yes Arterial Parameters Set: [...] -- 67 18 100 % -- 06/08/25 180 (!) 106/ -- -- 61 -- -- -- 06/08/25 1800 (!) 106/ -- -- 65 -- -- -- 06/08/25 [...] Vitals: 06/08/25 1745 06/08/25 1800 06/08/25 1804 06/08/25 181 BP: (!) 105/40 (!) 106/37 (!) 106/37 [...] documented as signed by this procedure note Energy Project Manager(s): N/A No supervision required documented in this encounter [facility] 06-08-2025 Note [facility] 06-07-2025 Note Patient tolerated th e procedure well. 600ml's of clear gold fluid removed. Fluid left with ICU nurse for labs to be sent. [facility] 06-04-2025 Note Return referral plac ed to [facility] via [facility] per TCC request. Await review and response regarding ability to accept. TCC notified. [facility] 06-01-2025 Note [facility] 06-01-2025 History and physical note Attending History and Physical Admit Date: 06/01/2025 PCP: No primary care provider on file. CHIEF COMPLAINT: Low blood counts Reason for Admission: Acute on chronic anemia History Obtained From: ED physician and the patient HISTORY OF PRESENT ILLNESS: Roas is a 75 y.o. female who is on chronic tracheostomy and vent therapy, PEG tube feeding and hemodialysis, hypertension, hyperlipidemia coronary artery disease status post PCI with stent in September 2023, type 2 diabetes mellitus with polyneuropathy chronic CHF combined admitted for anemia, she is a resident of [facility] [place] and was sent to the ER as [...] -June 02 or - Location [facility] [place] - Pending the following -clinical improvement and [...] - DO NOT do CPR, intubation] [_] [DNR-BALANCE WHEEL HAND FILER - Comfort care only] [_] DNR form [...] Sharyn Amaya MD Division of Hospitalist Medicine [facility] [1] No past medical history on file. [...] No Known Allergies documented in this encounter [facility] 06-01-2025 Emergency department Note EMERGENCY DEPARTMENT ENCOUNTER Pt Name: Rosa Myers Birthdate 1950 Date of evaluation: 06/01/2025 ED Provider: Omid Orona MD CHIEF COMPLAINT Chief Complaint Patient presents with Other Sent from [facility] for low HGB[facility]. [...] Patient was sent to us from her shelter for lab drawl that shows hemoglobin of [...] PEG, given M-F 1hr prior to dialysis PANTOPRAZOLE (PROTONIX) 20 MG EC TABLET Take 20 mg by mouth every morning (before breakfast). Do not crush, chew, or split. ALLERGIES Patient has no known allergies. FAMILY HISTORY Family History[3] SOCIAL HISTORY Social History[4] SCREENINGS [place] Coma Scale Best Eye Response: Spontaneous Best Verbal Response: Oriented Best Motor Response: Follows commands [place] Coma Scale Score: 15 PHYSICAL EXAM ED [...] [facility] (Per Emergency Physician): Chest [...] AND HEMATOCRIT, BLOOD PREPARE RBC PRODUCT CODE [id number] Unit Number [id number] Unit ABO A Unit RH POS Crossmatch interpretation COMP Dispense Status Crossmatch Blood Expiration Date [id number] Product Blood Type 6200 Unit Volume 300 PRODUCT CODE [id number] Unit Number [id number] Unit ABO A Unit RH POS Crossmatch interpretation COMP Dispense Status Transfused Blood Expiration Date [id number] Product Blood Type 6200 Unit Volume 300 [...] Patient was sent to us from her shelter. I contacted her cracking still operator from the shelter, Dr. Amaya who also admits here to the hospital. He agrees with plans for admission observation, blood transfusion. I also will contact her nephrology group, the [facility] to arrange for dialysis. Patient is admitted in fair condition The patient presented with chief complaint of low blood count. The differential diagnosis associated with this patient's presentation includes anemia, electro abnormality, worsening renal failure. Our workup consisted of ordering/reviewing: Laboratory studies, EKG, chest x-ray. I discussed their care with Admitting team hospitalist and Tool Crib Supervisor nephrology. Consideration for escalation of care with: [...] MD 06/01/25 1346 documented in this encounter [facility] 04-05-2025 Note ORIGINAL PROCEDURE: ULTRASOUND GUIDED THORACENTESIS [...] Sign Date: 04/05/2025 4:49:07 PM Ordering Provider: [facility] 03-27-2025 Note ORIGINAL PROCEDURE: ULTRASOUND GUIDED left THORACENTESIS MOCK UP MAKER: Cha Yusuf PA-C CLINICAL STATEMENT: Left pleural [...] 03/27/2025 5:38:19 PM Ordering Provider: JANAE ZARCO [facility] 03-27-2025 Note . MICRO - Microbiology PROCEDURE: [...] Locations *1: This test was performed at: [facility], [address] [place] [address], [facility] , [facility] 03-22-2025 Note ORIGINAL PROCEDURE: ULTRASOUND GUIDED right THORACENTESIS MOCK UP MAKER: Cha Yusuf PA-C CLINICAL STATEMENT: Bilateral pleural effusions, right greater than left ANESTHESIA: Local FLUID REMOVED: 1300 cc FLUID COLOR: Yellow serous DISPOSITION OF FLUID: Specimen sent with patient to [facility] CATHETER/NEEDLE: 5 Fr centesis catheter The procedure, [...] was sent with the patient back to [facility] for lab if needed. No lab orders were in place at the time of procedure. COMPLICATIONS: None EBL: None PATIENT CONDITION: unchanged IMPRESSION: Successful ultrasound guided right thoracentesis. Procedure was performed by Cha Yusuf PA-C. I concur with the contents of this report. Interpreted by: Yamil aMst MD Preliminary Report By: Cha Yusuf PA-C [...] 03/22/2025 8:57:19 AM Ordering Provider: JANAE ZARCO [facility] 03-11-2025 Note . MICRO - Microbiology PROCEDURE: [...] Locations *1: This test was performed at: [facility], [address] [place] [address], [facility] , [facility] 03-07-2025 Note [facility] 02-21-2025 Note [facility] 02-19-2025 Note [facility] 02-05-2025 History and physi jim note Note Date/Time February 05, 2025 2:41p m [facility] Medical Records Department [address] [place] [address] H&P Exam - Hospitalist 02/05/25 1311 MR#: [id number] Acct: [id number] Name: ROSA MYERS Rep #:[id number] : 1950 74 From: Zachery Olvera PCP: [...] to be discussed in assessment and plan. [facility] Medical History Essential hypertension Morbid obesity with [...] (Auto) 89.7 H, Lymph %(Auto) 2.5 L, [place] % (Auto) 6.9, Eos % (Auto) 0.0, [...] Sens 218 H*, [place] [address] H 02/05/25 11:20: Urine Color Yellow, Urine Clarity Clear, Urine pH 5.0, Ur Specific [place] 1.025, Urine Protein 30 H, Urine Glucose [...] Blunting of both costophrenic angles. Reading Location: [facility] Assessment & Plan Assessment/Plan (1) Acute on [...] of nondescriptive chest pain. Lesion discussed with supervisor feed mill Dr. Cardoan. Recommended enoxaparin 1 dose. Troponin 218, 241. [...] monitoring, kidneyand electrolytes monitoring. Repeat 2D echo. Christian Education Director consulted from ED physician ELIDA on CKD stage IV: Patient baseline creatinine runs around 2.0 as in January 2025. Admitting BUN/creatinine 58/2.32 therefore ELIDA on CKD stage IV. Algebraist consulted. Patient has hyperkalemia, 5.5, high anion [...] shock if needed Total time spent in ijjq-ut-uwur encounter in discussion of advanced directive 17 minutes. Laboratory Results 02/05/25 09:59: WBC 20.5 H, RBC 3.71 L, Hgb 8.0 L, Hct 27.9 L, MCV 75.2 L, MCH 21.6 L, MCHC 28.7 L, RDW Std Deviation 45.6 H, RDW Coeff of Bulmaro 17.0 H, Plt Count 226, MPV 10.6, Immature Gran % (Auto) 0.600, Neut % (Auto) 89.7 H, Lymph %(Auto) 2.5 L, [place] % (Auto) 6.9, Eos % (Auto) 0.0, [...] Sens 218 H*, [place] [address] H 02/05/25 11:20: Urine Color Yellow, Urine Clarity Clear, Urine pH 5.0, Ur Specific [place] 1.025, Urine Protein 30 H, Urine Glucose [...] Blunting of both costophrenic angles. Reading Location: [id number] Charges/Coding Visit Charges Inpatient E&M: 53736 Init Hosp L3 Procedures Hospitalists Procedures: 00987 Advncd Care Plan 30 Min 02/05/25 1441 <Electronically signed by Zachery Gomez MD> Cosigner Signature (if applicable): CC: Dr. Amado James MD; Dr. Zachery Gomez MD~ Signed [facility] Work Phone: 1(334) 245-391905-12-2025 History and physical note [facility] Medical Records Department [address] [place] [address] H&P Exam - Hospitalist 02/05/25 1311 MR#: [id number] Acct: [id number] Name: ROSA MYERS Rep #:[id number] : 1950 74 From: Zachery Olvera PCP: [...] to be discussed in assessment and plan. [facility] Medical History Essential hypertension Morbid obesity with [...] (Auto) 89.7 H, Lymph %(Auto) 2.5 L, [place] % (Auto) 6.9, Eos % (Auto) 0.0, [...] Sens 218 H*, [place] [address] H 02/05/25 11:20: Urine Color Yellow, Urine Clarity Clear, Urine pH 5.0, Ur Specific [place] 1.025, Urine Protein 30 H, Urine Glucose [...] Blunting of both costophrenic angles. Reading Location: [facility] Assessment & Plan Assessment/Plan (1) Acute on [...] of nondescriptive chest pain. Lesion discussed with supervisor feed mill Dr. Cardona. Recommended enoxaparin 1 dose. Troponin [...] monitoring, kidneyand electrolytes monitoring. Repeat 2D echo. Christian Education Director consulted from ED physician ELIDA on CKD stage IV: Patient baseline creatinine runs around 2.0 as in January 2025. Admitting BUN/creatinine 58/2.32 therefore ELIDA on CKD stage IV. Algebraist consulted. Patient has hyperkalemia, 5.5,high anion gap [...] shock if needed Total time spent in alot-my-mvup encounter in discussion of advanced directive 17 minutes. Laboratory Results 02/05/25 09:59: WBC 20.5 H, RBC 3.71 L, Hgb 8.0 L, Hct 27.9 L, MCV 75.2 L, MCH 21.6 L, MCHC 28.7 L,RDW Std Deviation 45.6 H, RDW Coeff of Bulmaro 17.0 H, Plt Count 226, MPV 10.6, Immature Gran % (Auto) 0.600, Neut % (Auto) 89.7 H, Lymph %(Auto) 2.5 L, [place] % (Auto) 6.9, Eos % (Auto) 0.0, [...] Sens 218 H*, [place] [address] H 02/05/25 11:20: Urine Color Yellow, Urine Clarity Clear, Urine pH 5.0, Ur Specific [place] 1.025, Urine Protein 30 H, Urine Glucose [...] Blunting of both costophrenic angles. Reading Location: [id number] Charges/Coding Visit Charges Inpatient E&M: 30569 Init Hosp L3 Procedures Hospitalists Procedures: 90015 Advncd Care Plan 30 Min 02/05/25 1441 Cosigner Signature (if applicable): CC: Dr. Amado James MD; Dr. Zachery Gomez MD~ Signed [facility]05-12-2025 Radiology Diagnostic study note [facility] Imaging Services [address] [place] [address] Chest 1 View (Portable) MR#: [id number] Acct: [id number] Name: ROSA MYERS Rep #: [id number] : 1950 F 74 From: Kelton Daly MD PCP: Dr. Amado James MD Status: RE G ER Study:Chest 1 View (Portable) Date of Exam: 02/05/25 Exam# [id number] Ordering Dr: Eduardo Corona DO PROCEDURE: CHEST [...] Blunting of both costophrenic angles. Reading Location: [id number] CC: Dr. Eduardo Corona DO; Dr. Amado James MD ~ Dentistry Professor: Signed [facility]03-25-2025 Telephone encounter Note* Telephone Encounter - [...] CBC in 2 weeks Amado James MD [facility]03-25-2025 Miscellaneous Notes* Telephone Encounter - Amado James [...] weeks Amado James MD documented in this encounterCleveland [id number] Instructions* Patient Instructions* Rufina Soares APRN.CNP - 11/27/2024 2:16 PM EST Get fasting labs and urine testing completed Continue to take all medication as prescribed Monitor sugars at home fasting and meals Work on eating a low carb diet Stay well hydrated Follow up in 3 months or sooner pending test results, documented in this encounterRegency Hospital Company03-03-2025 History of Present illness Narrative* Rufina Soares [...] CATARACT EXTRACTION HX Right 10/26/2017 EGD W/O [facility] SPEC VARICIES INJ N/A 02/24/2022 LIG/TRNSXJ FLP TUBE ABDL/VAG APPR UNI/BI 1987 Tubal ligation LIGJ DIVJ &/EXCJ VARICOSE VEIN CLUSTER 1 LEG 1996 Varicose Vein Surgery TONSILLECTOMY PRIMARY/SECONDARY <AGE 12 [...] 1 capsule by mouth once daily. Insulin [place], Disposable, (RELION PEN NEEDLES) 32 x 5/32 [...] APRN.RENEE This note was partially generated using Onavo voice recognition system. Note was reviewed for accuracy. There may be minor misspellings or grammar miscues with Onavo voice recognition. documented in this encounterRegency Hospital Company03-03-2025 NoteHNO ID: [id number] Author: RUFINA SOARES APRN.CNP Service: ? Author [...] CATARACT EXTRACTION HX Right 10/26/2017 EGD W/O [facility] SPEC VARICIES INJ N/A 02/24/2022 [...] 1 capsule by mouth once daily. Insulin [place], Disposable, (RELION PEN NEEDLES) 32 x 5/32 [...] hematochezia/melena. No heartburn or (more content not included)...[facility]02-18-2025 Telephone encounter Note* Telephone Encounter - Maciel Busby APRN.CNP - 11/14/2024 10:25 AM EST Noted. Okay to continue with the plan. Maciel Busby APRN.CNP [facility]02-18-2025 Miscellaneous Notes* Telephone Encounter - Maciel Busby APRN.CNP - 11/14/2024 10:25 AM EST Noted. Okay to continue with the plan. Maciel Busby APRN.CNP * Telephone Encounter - Judie Paiz RN - 11/14/2024 10:09 AM EST Joseph MICHELE with [facility] calls to let provider know that [...] questions. Judie Paiz RN documented in this encounterRegency Hospital Company02-18-2025 Telephone encounter Note * Telephone Encounter - Judie Paiz RN - 11/14/2024 10:09 AM EST Joseph MICHELE with [facility] calls to let provider know that patient [...] unless provider has questions. Judie Paiz RN [facility]02-12-2025 Telephone encounter Note* Telephone Encounter - Ave [...] Ave Toney November 08, 2024 8:45 AM [facility]02-12-2025 Miscellaneous Notes* Telephone Encounter - Ave Toney [...] 08, 2024 8:45 AM documented in this encounterRegency Hospital Company01-30-2025 Evaluation note* Diagnosis Onset Date Resolution Status [...] PAD (peripheral artery disease) acute November 23, 025 9:00am Type 2 diabetes mellitus wit h foot ulcer acute November 23 025 9:00am 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 heart failure) chronic November 23 025 9:00am Essential hypertension chronic Fe bruary [...] 2025 3: 27pm Hyperlipidemia chronic January 29, 025 3:27pm Ischemic cardiomyopathy chronic M ay 2024 3:27pm Secondary pulmonary arterial hypertension chronic January 29, 2025 3: 27pm [facility] Work Phone: [phone] Evaluation note* Diagnosis Onset Date Resolution Status [...] diastolic (congestive) chronic February 05, 2025 1:07pm [facility] Work Phone: [phone]) [phone] Evaluation note* Diagnosis Onset Date Resolution Status [...] PAD (peripheral artery disease) acute November 23, 025 9:00am Type 2 diabetes mellitus wit h foot ulcer acute November 23, 025 9:00am Chronic combined systolic an d [...] kidney injury) resolved February 05, 2025 1:07pm [place] [employer] Work Phone: [phone] Telephone encounter Note* Telephone Encounter - Rajni Jiménez RN - 10/20/2024 12:12 PM EST joseph with [facility] is calling to let pcp that they are re-certifying patient for nursing for help with wound care once weekly for the next 4 weeks. [facility]01-24-2025 Miscellaneous Notes* Telephone Encounter - Rajni Jiménez RN - 10/20/2024 12:12 PM EST joseph with [facility] is calling to let pcp that they are re-certifying patient for nursing for help with wound care once weekly for the next 4 weeks. documented in this encounterRegency Hospital Company01-10-2025 NoteHNO ID: [id number] Author: JESSICA MCKINNON MA Service: ? Author Type: Distillery Worker Type: Progress Notes Filed: 10/06/2024 10:07 Note Text: POPULATION HEALTH NAVIGATION OUTREACH Action/FYI Patient is on [facility]REEZ[facility] CURRENT ROSTER Workbench list for [...] patient. Scheduled 11/[address] Elizabeth in [place] for eye exam. KED (uACR ) pended for PCP review - CMP already pending Declined to scheduled lab at this time as they want to wait to discuss with son. Reminded of them and fasting labs ordered. HCC: Yes HTN [facility] [place] added to notes for upcoming OV Updated [...] orders: Diabetic Eye Exam 11/27/2024 in [facility] with RUFINA SOARES - 2 mo follow up 12/08/2024 in [facility] with JENNIFER ELIZABETH - Diabetic eye exam Updated appointment note HCC related Navigation Signature: Jessica Mckinnon MA October 06, 2024 9:00 [facility]01-10-2025 History of Present illness Narrative* Jessica Mckinnon MA - 10/06/2024 9:00 AM EST POPULATION HEALTH NAVIGATION OUTREACH Action/I Patient is on [facility] CURRENT ROSTER Workbench list for below [...] patient. Scheduled 11/[address] Elizabeth in [place] for eye exam. KED (uACR ) pended for PCP review - CMP already pending Declined to scheduled lab at this time as they want to wait to discuss with son. Reminded of them and fasting labs ordered. HCC: Yes HTN [facility] [place] added to notes for upcoming OV Updated [...] orders: Diabetic Eye Exam 11/27/2024 in [facility] with RUFINA SOARES - 2 mo follow up 12/08/[address] [facility] with JENNIFER ELIZABETH - Diabetic eye exam Updated appointment note HCC related Navigation Signature: Jessica Mckinnon MA October 06, 2024 9:00 AM documented in this encounterRegency Hospital Company01-10-2025 NotePatient Outreach (NETNAV) ROSA MYERS ([id number]) 1950 F Date Time Provider Department 10/06/24 JESSICA MCKINNON During your visit today, we recorded the following information about you: Jessica Mckinnon MA 10/06/2024 10:07 AM Addendum POPULATION HEALTH NAVIGATION OUTREACH Action/ Patient is on [facility] CURRENT ROSTER Workbench list for [...] patient. Scheduled 11/20[address] Elizabeth in [place] for eye exam. KED (uACR ) pended [...] orders: Diabetic Eye Exam 11/27/2024 in [facility] with RUFINA SOARES - 2 mo follow up 12/08/2024 in [facility] with JENNIFER ELIZABETH - Diabetic eye exam Updated appointment note HCC related Navigation Signature: Jessica Mckinnon MA October 06, 2024 9:00 AM Allergies As of Date: 10/06/2024 Noted Allergy Reaction DIANA INHIBITORS 07/17/2005 NEOMYCIN 07/17/2005 Date Reviewed: 09/26/2024 Reviewed by: Yaz Christy MA - Fully Assessed Reason for Visit: Population Health Navigation Outreach [3910] Cmt: Nadeen Avalos PCS Primary Visit Diagnosis:Type 2 diabetes mellitus with chronic kidney disease, with long-term current use of insulin, unspecified CKD stage (HCC) [E11.22, Z79.4] Order(s):ALBUMIN/CREATININE RATIO, URINE [SQUACR] Order #: [id number] FUTURE Prescriptions as of 10/09/2024 - insulin [...] capsule by mouth once daily. - Insulin [place], Disposable, (RELION PEN NEEDLES) 32 x 5/32 [...] 07/17/2005 DIFFUS CYSTIC MAST (more content not included)...[facility] 09-29-2024 Telephone encounter Note* Telephone Encounter - Amado James MD - 09/29/2024 10:52 AM EST Noted; continue with current dose of insulin Amado James MD [facility]01-03-2025 Miscellaneous Notes* Telephone Encounter - Amado James MD - 09/29/2024 10:52 AM EST Noted; continue with current dose of insulin Amado James MD * Telephone Encounter - Elsie Brock LPN - 09/29/2024 10:06 AM EST Joseph from [facility] calling to confirm pt's insulin dosages. Advised [...] pt follws with wound center and Dr Erwin(medical reimbursement specialist). Elsie Brock LPN documented in this encounterRegency Hospital Company01-03-2025 Telephone encounter Note * Telephone Encounter - Elsie Brock LPN - 09/29/2024 10:06 AM EST Joseph from [facility] calling to confirm pt's insulin dosages. Advised [...] pt follws with wound center and Dr Erwin(medical reimbursement specialist). Elsie Brock LPN [facility]12-31-2024 Instructions* Patient Instructions* Yaz Christy MA - 09/26/2024 9:49 AM EST Increase Insulin - Levemir 30 units once daily and Humalog 15 units 3 x per day with meals. Update office in a couple weeks with readings to adjust if needed. documented in this encounterRegency Hospital Company12-31-2024 History of Present illness Narrative* Amado James [...] and did have to go to a [facility] and stay, but is now back home. [...] 1 capsule by mouth once daily. Insulin [place], Disposable, (RELION PEN NEEDLES) 32 x 5/32 [...] 08/31/2024 1.12 Monocytes % 08/31/2024 7.1 Abs [place] 08/31/2024 0.55 Eosinophils % 08/31/2024 2.6 Abs [...] 4. Chronic kidney disease, stage 4 (severe) ([facility]) - ICD9: 585.4, ICD10: N18.4 - COMPREHENSIVE METABOLIC PANEL 5. Chronic anemia - ICD9: 285.9, ICD10: D64.9 - COMPLETE BLOOD COUNT AND DIFFERENTIAL 6. Type 2 diabetes mellitus with stage 3b chronic kidney disease, without long- term current use of insulin ([facility]) - ICD9: 250.40, 585.3, ICD10: E11.22, N18.32 - INSULIN LISPRO (U-100) 100 UNIT/ML SUBCUTANEOUS PEN 7. Controlled type 2 diabetes mellitus without complication, with long-term current use of insulin ([facility]) - ICD9: 250.00, V58.67, ICD10: E11.9, Z79.4 - INSULIN LISPRO (U-100) 100 UNIT/ML SUBCUTANEOUS PEN Call office with glucose readings in 2 weeks, may need to increase insulin further Follow up in 2 months I agree with the Chief Complaint, ROS, and Past Histories independently gathered by the clinical software support specialist and the remaining scribed note [...] AM. Yaz Christy MA documented in this encounterRegency Hospital Company12-31-2024 NoteHNO ID: [id number] Author: AMADO JAMES MD Service: ? Author [...] and did have to go to a [facility] and stay, but is now back home. [...] 1 capsule by mouth once daily. Insulin [place], Disposable, (RELION PEN NEEDLES) 32 x 5/32 " ndle Use as directed with insulin pen. 250.00. 4 injections/day. On insulin. Blood-Glucose Meter, Drum-type (ACCU-CHEK COMPACT PLUS CARE) kit Use as directed cyanocobalamin (VITAMIN B-12) 1,000 mcg tab Take 1 tablet by mouth once daily. (Patie (more content not included)...[facility]12-20-2024 Telephone encounter Note* Telephone Encounter - Maciel Busby APRN.CNP - 09/15/2024 11:22 AM EST Noted. Maciel Busby APRN.RENEE [facility]12-20-2024 Miscellaneous Notes* Telephone Encounter - Maciel Busby APRN.CNP - 09/15/2024 11:22 AM EST Noted. Maciel Busby APRN.RENEE * Telephone Encounter - Juana Castaneda RN - 09/15/2024 10:40 AM EST Juana calling from [facility] to report plan of care for patient and senior living will continue to visit patient 1 time a week for 2 weeks. Long Term will continue work with patient on woundcare. No call back needed. Juana Castaneda RN documented in this encounterRegency Hospital Company12-20-2024 Telephone encounter Note * Telephone Encounter - Juana Castaneda RN - 09/15/2024 10:40 AM EST Juana calling from [facility] to report plan of care for patient and senior living will continue to visit patient 1 time a week for 2 weeks. Long Term will continue work with patient on woundcare. No call back needed. Juana Castaneda, RN [facility]12-18-2024 Telephone encounter Note* Telephone Encounter - Marguerite Rubio LPN - 09/13/2024 10:58 AM EST Patient son notified of results, verbalizes understanding of instructions. Appt is made in 1 week follow up for DM. Marguerite Rubio LPN [facility]12-18-2024 Miscellaneous Notes* Telephone Encounter - Marguerite Rubio LPN - 09/13/2024 10:58 AM EST Patient son notified of results, verbalizes understanding of instructions. Appt is made in 1 week follow up for DM. Marguerite Rubio LPN * Telephone Encounter - Rufina Soares APRN.CNP [...] LPN * Telephone Encounter - Rufina Soares APRN.CNP - 09/11/2024 3:29 PM EST Can you [...] 348 Juana Castaneda RN documented in this encounterRegency Hospital Company12-18-2024 Telephone encounter Note * Telephone Encounter - [...] target fasting blood sugar level consistently (80-130) [facility]12-17-2024 Telephone encounter Note* Telephone Encounter - Kathi [...] 3 times a day. Kathi Crane LPN [facility]12-16-2024 Telephone encounter Note* Telephone Encounter - Marguerite Rubio LPN - 09/11/2024 3:34 PM EST TC to pt. LM to call office, ask for triage nurse to get results. Marguerite Rubio LPN [facility]12-16-2024 Telephone encounter Note* Telephone Encounter - Rufina Soares APRN.RENEE - 09/11/2024 3:29 PM EST Can you please call the patient's son and ask what dosing insulin are they up to at this time? Has he been titrating up the Lantus? How much Humalog has she been taking with her meals? Rufina Soares APRN.BELLMAN [facility]12-16-2024 Telephone encounter Note* Telephone Encounter - Juana Castaneda RN - 09/11/2024 9:25 AM EST Patient's son Marcell calls with patient's blood sugars. Date AM Lunch Supper 09/07 [phone] 09/08 [phone] 09/09 [phone] Juana Castaneda RN [facility]12-13-2024 Telephone encounter Note* Telephone Encounter - Mariza Graham MA - 09/08/2024 1:25 PM EST Isabel notified and voiced understanding. Mariza Graham MA [facility]12-13-2024 Miscellaneous Notes* Telephone Encounter - Mariza Graham MA - 09/08/2024 1:25 PM EST Isabel notified and voiced understanding. Mariza Graham MA * Telephone Encounter - Amado James MD - 09/08/2024 12:00 PM EST OK for one more visit as requested Amado James MD * Telephone Encounter - Rajni Jiménez RN - 09/08/2024 11:05 AM EST Isabel from [facility] is calling requesting an order for 1 more additional visit to see patient next week as patient was to receive paperwork in the mail that she was to go over with patient and she hasnot received it yet. Nurse is hoping that it will arrive by this time next week. please review and advise and contact nurse back with information documented in this encounterRegency Hospital Company12-13-2024 Telephone encounter Note * Telephone Encounter - Amado James MD - 09/08/2024 12:00 PM EST OK for one more visit as requested Amado James MD [facility]12-13-2024 Telephone encounter Note* Telephone Encounter - Rajni Jiménez RN - 09/08/2024 11:05 AM EST Isabel from [facility] is calling requesting an order for 1 more additional visit to see patient next week as patient was to receive paperwork in the mail that she was to go over with patient and she hasnot received it yet. Nurse is hoping that it will arrive by this time next week. please review and advise and contact nurse back with information [facility]12-09-2024 Telephone encounter Note* Telephone Encounter - Mariza Graham MA - 09/04/2024 3:46 PM EST Isabel notified. Mariza Graham MA [facility]12-09-2024 Miscellaneous Notes* Telephone Encounter - Mariza Graham MA - 09/04/2024 3:46 PM EST Isabel notified. Mariza Graham MA * Telephone Encounter - Amado James MD - 09/04/2024 3:00 PM EST Ok for verbal ok to follow up with patient on 09/08/24 as requested Amado James MD * Telephone Encounter - Angelica Nassar LPN - 09/04/2024 9:57 AM EST Isabel oncology social worker from [facility] Home Health is asking for a verbal ok to follow up with patient on 09/08/24. documented in this encounterRegency Hospital Company12-09-2024 Telephone encounter Note * Telephone Encounter - Amado James MD - 09/04/2024 3:00 PM EST Ok for verbal ok to follow up with patient on 09/08/24 as requested Amado James MD [facility]12-09-2024 Telephone encounter Note* Telephone Encounter - Mariza Graham MA - 09/04/2024 10:34 AM EST Pt son Marcell notified. Mariza Graham MA [facility]12-09-2024 Miscellaneous Notes* Telephone Encounter - Mariza Graham MA - 09/04/2024 10:34 AM EST Pt son Marcell notified. Mariza Graham MA * Telephone Encounter - Marguerite Rubio LPN - 09/01/2024 2:58 PM EST TC to Pt. son Unable to LM due to the mailbox is full. Will try again later. Marguerite Rubio LPN * Telephone Encounter - Rufina Soares APRN.BELLMAN - 09/01/2024 2:52 PM EST Can you [...] changes. Marguerite Rubio LPN documented in this encounterJason Ville [address]-09-2024 Telephone encounter Note * Telephone Encounter - Angelica Nassar LPN - 09/04/2024 9:57 AM EST Isabel oncology social worker from [facility] Home Health is asking for a verbal ok to follow up with patient on 09/08/24. [facility]12-06-2024 Telephone encounter Note* Telephone Encounter - Marguerite Rubio LPN - 09/01/2024 2:58 PM EST TC to Pt. son Unable to LM due to the mailbox is full. Will try again later. Marguerite Rubio LPN [facility]12-06-2024 Telephone encounter Note* Telephone Encounter - Rufina [...] target fasting blood sugar level consistently (80-130) [facility]12-06-2024 Telephone encounter Note* Telephone Encounter - Marguerite Rubio LPN - 09/01/2024 2:31 PM EST Pt son called with Pt blood sugars from the week. Tues - morning -187 noon- 230 evening - 237 Wed- morning -207 noon - 262 evening - 275 Thur - morning -256 noon - 303 evening -278 Please let Pt and son know if you want changes. Marguerite Rubio LPN [facility]12-05-2024 Telephone encounter Note* Telephone Encounter - Rufina Soares APRN.RENEE - 08/31/2024 7:28 AM EST Noted, thank you Rufina Soares APRN.BELLMAN [facility]12-05-2024 Miscellaneous Notes* Telephone Encounter - Rufina Soares APRN.RENEE - 08/31/2024 7:28 AM EST Noted, thank you Rufina Soares APRN.BELLMAN * Telephone Encounter - Aimee French RN - 08/30/2024 1:36 PM EST RICKY Gardner @ [facility] calling with plan of care. OT will see patient 1 x/weekf for one week, 2 x/week for two weeks, and 1x/week for one week for safety and strength training needed for ADLs. If agree, no call back needed. Aimee French RN documented in this encounterRegency Hospital Company12-04-2024 Telephone encounter Note * Telephone Encounter - Aimee French RN - 08/30/2024 1:36 PM EST RICKY Gardner @ [facility] calling with plan of care. OT will see patient 1 x/weekf for one week, 2 x/week for two weeks, and 1x/week for one week for safety and strength training needed for ADLs. If agree, no call back needed. Aimee French RN [facility]12-03-2024 Telephone encounter Note* Telephone Encounter - Amado James MD - 08/29/2024 2:06 PM EST Noted Amado James MD [facility]12-03-2024 Miscellaneous Notes* Telephone Encounter - Amado Jmaes MD - 08/29/2024 2:06 PM EST Noted Amado James MD * Telephone Encounter - Juana Castaneda RN - 08/29/2024 10:57 AM EST Rufina PT calling from [facility] to report plan of care for patient and physical therapy will visit patient 1 time a week for 1 week, 2 times a week for 3 weeks and 1 time a week for 1 week. Physical therapy will work with patient on lower extremity strength, transfer and gait training, and balance and endurance. No call back needed unless there are questions Junaa Castaneda RN documented in this encounterRegency Hospital Company12-03-2024 Telephone encounter Note * Telephone Encounter - Juana Castaneda RN - 08/29/2024 10:57 AM EST Rufina PT calling from [facility] to report plan of care for patient and physical therapy will visit patient 1 time a week for 1 week, 2 times a week for 3 weeks and 1 time a week for 1 week. Physical therapy will work with patient on lower extremity strength, transfer and gait training, and balance and endurance. No call back needed unless there are questions Juaan Castaneda RN [facility]12-02-2024 History of Present illness Narrative* Rufina Soares APRN.BELLMAN - 08/28/2024 2:00 PM EST This is a 74 year old female who presents today with: Patient presents with: Follow Up: Hosptial follow up hupoglycemia HISTORY OF PRESENT ILLNESS: Rosa Myers is a 74 year old female. Patient presents with: Follow Up: Hosptial follow up hupoglycemia HOSPITAL/ER FOLLOW UP: Reason for visit: Altered level of consciousness transported by EMS Which facility: [facility] Date of visit: 08/19/2024-08/22/2024 Diagnosis: Hypoglycemia, hypothermia, [...] History of diabetic ulcers/wounds Follows with cardiology, [facility], . Living with , son lives in [facility] on same property. PAST MEDICAL HISTORY: PAST MEDICAL HISTORY Diagnosis Date Allergic rhinitis due to other allergen Essential hypertension, benign Type II or unspecified type diabetes mellitus without mention of complication, uncontrolled PAST SURGICAL HISTORY Procedure Laterality Date CATARACT EXTRACTION HX Right 10/26/2017 EGD W/O [facility] SPEC VARICIES INJ N/A 02/24/2022 [...] 1 capsule by mouth once daily. Insulin [place], Disposable, (RELION PEN NEEDLES) 32 x 5/32 [...] APRN.RENEE This note was partially generated using Onavo voice recognition system. Note was reviewed for accuracy. There may be minor misspellings or grammar miscues with Onavo voice recognition. documented in this encounterRegency Hospital Company12-02-2024 NoteHNO ID: [id number] Author: RUFINA SOARES APRN.RENEE Service: ? Author [...] of consciousness transported by EMS Which facility: [facility] Date of visit: 08/19/2024-08/22/2024 Diagnosis: Hypoglycemia, hypothermia, [...] History of diabetic ulcers/wounds Follows with cardiology, [facility], . Living with , son lives in [facility] on same property. PAST MEDICAL HISTORY: PAST MEDICAL HISTORY Diagnosis Date Allergic rhinitis due to other allergen Essential hypertension, benign Type II or unspecified type diabetes mellitus without mention of complication, uncontrolled PAST SURGICAL HISTORY Procedure Laterality Date CATARACT EXTRACTION HX Right 10/26/2017 EGD W/O [facility] SPEC VARICIES INJ N/A 02/24/2022 [...] 1 capsule by mouth once daily. Insulin [place], Disposable, (RELION PEN NEEDLES) 32 x 5/32 [...] Smoking status: Former Smoke (more content not included)...[facility]12-02-2024 Instructions* Patient Instructions* Rufina Soares APRN.CNP - 08/28/2024 1:54 PM EST Get fasting [...] units and Notify Provider documented in this encounterRegency Hospital Company11-29-2024 Telephone encounter Note * Telephone Encounter - Mariza Graham MA - 08/25/2024 2:40 PM EST Detailed message of below left on Joseph's identified and confidential VM. Advised to call office ifany questions. Mariza Graham MA [facility]11-29-2024 Miscellaneous Notes* Telephone Encounter - Mariza Graham [...] LPN - 08/25/2024 1:03 PM EST [facility] calling Pt. discharged with DX hypoglycemia. POC is see her 2 x 1 week an 1 day for 2 weeks and reassess. will you follow? documented in this encounterRegency Hospital Company11-29-2024 Telephone encounter Note * Telephone Encounter - Amado James MD - 08/25/2024 2:01 PM EST Noted; yes, I will follow Amado James MD [facility]11-29-2024 Telephone encounter Note* Telephone Encounter - Vicki Sawant LPN - 08/25/2024 1:03 PM EST [facility] calling Pt. discharged with DX hypoglycemia. POC is see her 2 x 1 week an 1 day for 2 weeks and reassess. will you follow? [facility] Work Phone: [phone] NoteHNO ID: [id number] Author: MARIZA GRAHAM MA Service: ? Author Type: Distillery Worker Type: Progress Notes Filed: 08/25/2024 10:20 Note Text: TRANSITION CARE MANAGEMENT (TCM) INITIAL CONTACT Distillery Worker Outreach Provider Action/FYI: 7 day TCM Pt [...] of Discharge 08/22/2024 SUMMARY: -Pt discharged from [facility] on 08/22/24. -Admitted for: 1) hypoglycemia with [...] from recent hospitalization: Placed for provider to review[facility] History of Present illness Narrative* Mariza Graham MA - 08/25/2024 10:09 AM EST TRANSITION CARE MANAGEMENT (TCM) INITIAL CONTACT Distillery Worker Outreach Provider Action/FYI: 7 day TCM Pt [...] of Discharge 08/22/2024 SUMMARY: -Pt discharged from [facility] on 08/22/24. -Admitted for: 1) hypoglycemia with [...] for provider to review documented in this encounterRegency Hospital Company11-29-2024 NotePatient Outreach (CLYDEPMARAL) ROSA MYERS ([id number]) 1950 F Date Time Provider Department 08/25/24 MARIZA GRAHAM During your visit today, we recorded the following information about you: Mariza Graham MA 08/25/2024 10:20 AM Signed TRANSITION CARE MANAGEMENT (TCM) INITIAL CONTACT Distillery Worker Outreach Provider Action/FYI: 7 day TCM Pt [...] of Discharge 08/22/2024 SUMMARY: -Pt discharged from [facility] on 08/22/24. -Admitted for: 1) hypoglycemia with [...] capsule by mouth once daily. - Insulin [place], Disposable, (RELION PEN NEEDLES) 32 x 5/32 [...] attack (*11/15/2013 Morbid o (more content not included)...[facility]11-26-2024 Telephone encounter Note* Telephone Encounter - Chuyita Fontana LPN - 08/22/2024 2:28 PM EST Left detailed message on identifiable voicemail. [facility]11-26-2024 Miscellaneous Notes* Telephone Encounter - Chuyita Fontana LPN - 08/22/2024 2:28 PM EST Left detailed message on identifiable voicemail. * Telephone Encounter - Maciel Busby APRN.CNP - 08/22/2024 2:25 PM EST Please let Vinay know that Dr. James is out of the office. His team will follow home health care orders as recommended. Okay to proceed. Maciel Busby APRN.RENEE * Telephone Encounter - Hyacinth Greer LPN - 08/22/2024 9:36 AM EST Vinay with [facility] is calling to report that pt is currently in [facility] for hypoglycemia. Pt may get discharged today or tomorrow and possibly with 2L of O2. Pt has orders for senior living, PT, OT, and SW. Vinay is asking for VO from provider that provider will follow pt while in . Hyacinth Greer LPN documented in this encounterRegency Hospital Company11-26-2024 Telephone encounter Note * Telephone Encounter - Maciel Busby APRN.CNP - 08/22/2024 2:25 PM EST Please let Vinay know that Dr. James is out of the office. His team will follow home health care orders as recommended. Okay to proceed. Maciel Busby APRN.RENEE [facility]11-26-2024 Telephone encounter Note* Telephone Encounter - Hyacinth Greer LPN - 08/22/2024 9:36 AM EST Vinay with [facility] HH is calling to report that pt is currently in [facility] for hypoglycemia. Pt may get discharged today or tomorrow and possibly with 2L of O2. Pt has orders for senior living, PT, OT, and SW. Vinay is asking for VO from provider that provider will follow pt while in . Hyacinth Greer LPN [facility]11-22-2024 Telephone encounter Note* Telephone Encounter - Diana Whittington LPN - 08/18/2024 4:42 PM EST Phoned [facility] order line and left detailed message with notes below from Dr James on voicemail. [facility]11-22-2024 Miscellaneous Notes* Telephone Encounter - Diana Whittington LPN - 08/18/2024 4:42 PM EST Phoned [facility] order line and left detailed message with notes below from Dr James on voicemail. * Telephone Encounter - Amado James MD - 08/18/2024 4:39 PM EST I will follow and sign orders as requested Amado James MD * Telephone Encounter - Diana Whittington LPN - 08/18/2024 3:30 PM EST Will from [facility] calling asking if PCP would follow patient and sign orders for PT/OT? Patient was in [facility]. Please advise documented in this encounterRegency Hospital Company11-22-2024 Telephone encounter Note * Telephone Encounter - Amado James MD - 08/18/2024 4:39 PM EST I will follow and sign orders as requested Amado James MD [facility]11-22-2024 Telephone encounter Note* Telephone Encounter - Diana Whittington LPN - 08/18/2024 3:30 PM EST Will from [facility] calling asking if PCP would follow patient and sign orders for PT/OT? Patient was in [facility]. Please advise [facility]10-17-2024 Telephone encounter Note* Telephone Encounter - Amado James MD - 07/13/2024 4:09 PM EDT Ok for Lantus as ordered Amado James MD [facility]10-17-2024 Miscellaneous Notes* Telephone Encounter - Amado James MD - 07/13/2024 4:09 PM EDT Ok for Lantus as ordered Amado James MD * Telephone Encounter - Laura Palomares LPN - 07/13/2024 3:50 PM EDT Dolly pharmacist from [facility] received script for Levemir for pt this is being discontinued . There are no alternatives coming up but she states most likely Lantus. . New script needssent to [facility] for pt. documented in this encounterRegency Hospital Company10-17-2024 Telephone encounter Note * Telephone Encounter - Laura Palomares LPN - 07/13/2024 3:50 PM EDT Dolly pharmacist from [facility] received script for Levemir for pt this is being discontinued . There are no alternatives coming up but she states most likely Lantus. . New script needssent to [facility] for pt. [facility]10-16-2024 Telephone encounter Note* Telephone Encounter - Iain Lees RN - 07/12/2024 10:01 AM EDT Patient reports [facility] tells her her levemir Rx was cancelled. Reports she saw pcp yesterday and he did not mention it to her. Appears in chart, levemir was not cancelled, it is listed as historical med. Patient asking provider to send new Rx to pharmacy. Pended. Last ov: 07-11-24 [facility]10-16-2024 Miscellaneous Notes* Telephone Encounter - Iain Lees, RN - 07/12/2024 10:01 AM EDT Patient reports [facility] tells her her levemir Rx was cancelled. Reports she saw pcp yesterday and he did not mention it to her. Appears in chart, levemir was not cancelled, it is listed as historical med. Patient asking provider to send new Rx to pharmacy. Pended. Last ov: 07-11-24 documented in this encounterRegency Hospital Company10-15-2024 Instructions* Patient Instructions* Yaz Christy MA - 07/11/2024 4:30 PM EDT Will not reduce Humalog at present time, if still having low blood sugars update office. Discussed decreasing Humalog to 20 units three x per day. documented in this encounterRegency Hospital Company10-15-2024 History of Present illness Narrative* Amado James [...] as PCP - General Dr. Stallings or [employer] Provider - [facility]/Cardiology. Dr. Erwin - Podiatry/Wound Center. [...] with exertion. Does follow with Cardiology at [facility], has appt tomorrow. On current regimen of Diovan 160 mg once daily and Coreg 12.5 mg bid. Lipid/CAD - Taking Plavix 75 mg once daily, Lipitor 40 mg once daily and ASA 81 mg daily. Follows with [facility]. DM - Checks sugars at home once daily with FBS of 90 this morning. Generally FBS is 130-160. Has been having increased episodes of lows (5) over the past month, seems to correlate with increased use of abx due to her wounds. Is following with Dr. Erwin at [facility] and [facility] Wound Center for wound on b/l feet. [...] past year. Had Foot exam done through [facility], Wound Center. Denies having Adv Dir/Living Will, [...] 1 capsule by mouth once daily. Insulin [place], Disposable, (RELION PEN NEEDLES) 32 x 5/32 [...] Vaccine(1 of 2) due on 07/11/2025 Covid-19 Vaccine(1 - 2023- season) due on 07/11/2025 Pneumococcal Vaccine: 65+(3 [...] current use of insulin, unspecified CKD stage ([facility]) - ICD9: 250.40, 585.9, V58.67, ICD10: E11.22, [...] 4. Chronic kidney disease, stage 4 (severe) ([facility]) - ICD9: 585.4, ICD10: N18.4 - cont to monitor 5. Heart failure, unspecified HF chronicity, unspecified heart failure type ([facility]) - ICD9: 428.9, ICD10: I50.9 Add Zaroxalyn 6. Bilateral leg edema - ICD9: 782.3, ICD10: R60.0 - Add Zaroxolyn to regimen 7. Diabetic ulcer of right midfoot associated with type 2 diabetes mellitus, unspecified ulcer stage ([facility]) - ICD9: 250.80, 707.14, ICD10: E11.621, L97.419 Follow with Wound 8. Other depression - ICD9: 311, ICD10: F32.89 Continue prozac 10 mg daily ; she does not want to increase dose 9. Anemia, unspecified type - ICD9: 285.9, ICD10: D64.9 - Check CBC 10. Morbid obesity with body mass index of 40.0-44.9 in adult ([facility]) - ICD9: 278.01, V85.41, ICD10: E66.01, Z68.41 Stable - Behavioral intervention 6 week follow up with labs. I agree with the Chief Complaint, ROS, and Past Histories independently gathered by the clinical software support specialist and the remaining scribed note [...] PM. Yaz Christy MA documented in this encounterRegency Hospital Company10-15-2024 NoteHNO ID: [id number] Author: AMADO JAMES MD Service: ? Author [...] as PCP - General Dr. Stallings or [employer] Provider - [facility]/Cardiology. Dr. Erwin - Podiatry/Wound Center. [...] with exertion. Does follow with Cardiology at [facility], has appt tomorrow. On current regimen of Diovan 160 mg once daily and Coreg 12.5 mg bid. Lipid/CAD - Taking Plavix 75 mg once daily, Lipitor 40 mg once daily and ASA 81 mg daily. Follows with [facility]. DM - Checks sugars at home once daily with FBS of 90 this morning. Generally FBS is 130-160. Has been having increased episodes of lows (5) over the past month, seems to correlate with increased use of abx due to her wounds. Is following with Dr. Erwin at [facility] and [facility] Wound Center for wound on b/l feet. [...] from Wound Care last (more content not included)...[facility]09-20-2024 Telephone encounter Note* Telephone Encounter - Aston Felder RN - 06/16/2024 11:37 AM EDT Patricia [facility] called in and wanted Pts last OV note faxed over. She states the only diagnosis they have is foot ulcer, and she wanted more diagnoses to put down. Faxed last OV note to fax # [phone]. [facility]09-20-2024 Miscellaneous Notes* Telephone Encounter - Aston Felder RN - 06/16/2024 11:37 AM EDT Patricia [facility] called in and wanted Pts last OV note faxed over. She states the only diagnosis they have is foot ulcer, and she wanted more diagnoses to put down. Faxed last OV note to fax # [phone]. documented in this encounterRegency Hospital Company09-10-2024 Telephone encounter Note * Telephone Encounter - Maciel Busby APRN.CNP - 06/06/2024 11:40 AM EDT The following approved medication requests have been transmitted electronically. Requested Prescriptions Pending Prescriptions Disp Refills insulin lispro (HUMALOG KWIKPEN INSULIN) 100 unit/mL 30 Each 3 Sig: INJECT 25 UNITS SUBCUTANEOUSLY THREE TIMES DAILY WITH MEALS DIRECTED Maciel Busby APRN.CNP [facility]09-10-2024 Miscellaneous Notes* Telephone Encounter - Maciel Busby [...] 06, 2024 10:33 AM documented in this encounterRegency Hospital Company09-10-2024 Telephone encounter Note * Telephone Encounter - [...] TIMES DAILY WITH MEALS DIRECTED Pushpa [facility] June 06, 2024 10:33 AM [facility]09-06-2024 Telephone encounter Note* Telephone Encounter - Aga Castro RN - 06/02/2024 2:31 PM EDT Joseph with [facility] calling and requesting most recent office visit for patient be faxed to them at [phone] for continuity of care for Home Health Nursing services. Faxed as requested. Aga Castro RN [facility]09-06-2024 Miscellaneous Notes* Telephone Encounter - Aga Castro RN - 06/02/2024 2:31 PM EDT Joseph with [facility] calling and requesting most recent office visit for patient be faxed to them at [phone] for continuity of care for Home Health Nursing services. Faxed as requested. Aga Castro RN documented in this encounterRegency Hospital Company08-10-2024 History of Present illness Narrative* Amado James [...] CATARACT EXTRACTION HX; Right 02/24/2022: EGD W/O [facility] SPEC VARICIES INJ; N/A 1987: [...] 1 capsule by mouth once daily. Insulin [place], Disposable, (RELION PEN NEEDLES) 32 x 5/32 [...] type 2 diabetes mellitus, unspecified ulcer stage ([facility]) - ICD9: 250.80, 707.14, ICD10: E11.621, L97.419 (primary diagnosis) - New ulcer, with cellulitis - Start Augmentin, refer to Podiatry; family requests [facility], as is treatedthere. - AMOXICILLIN 875 MG-POTASSIUM CLAVULANATE 125 MG TABLET - CONSULT TO PODIATRY 2. Morbid obesity with body mass index of 40.0-44.9 in adult ([facility]) - ICD9: 278.01, V85.41, ICD10: E66.01, Z68.41 Stable - Behavioral intervention Follow up prn; will re-evaluate swelling after infection clears I agree with the Chief Complaint, ROS, and Past Histories independently gathered by the clinical software support specialist and the remaining scribed note [...] AM. Mariza Graham MA\\ documented in this encounterRegency Hospital Company08-10-2024 NoteHNO ID: [id number] Author: AMADO JAMES MD Service: ? Author [...] 1 capsule by mouth once daily. Insulin [place], Disposable, (RELION PEN NEEDLES) 32 x 5/32 [...] Albumin:Creatinine Ratio due o (more content not included)...[facility]08-07-2024 NoteHNO ID: [id number] Author: JESSICA MCKINNON MA Service: ? Author Type: Distillery Worker Type: Progress Notes Filed: 05/03/2024 09:11 Note Text: POPULATION HEALTH NAVIGATION OUTREACH Action/FYI Patient is on [facility] CURRENT ROSTER Workbench list for [...] Controlling Blood Pressure Upcoming OV converted per [place] protocol to AWV. Updated notes to address [...] Jessica Mckinnon MA May 03, 2024 9:09 [facility]08-07-2024 History of Present illness Narrative* Jessica Mckinnon MA - 05/03/2024 9:08 AM EDT POPULATION HEALTH NAVIGATION OUTREACH Action/FYI Patient is on [facility] CURRENT ROSTER Workbench list for [...] Controlling Blood Pressure Upcoming OV converted per [place] protocol to AWV. Updated notes to address [...] 03, 2024 9:09 AM documented in this encounterRegency Hospital Company08-07-2024 NotePatient Outreach (NETNAV) ROSA MYERS ([id number]) 1950 F Date Time Provider Department 05/03/24 JESSICA MCKINNON During your visit today, we recorded the following information about you: Jessica Mckinnon MA 05/03/2024 9:11 AM Signed POPULATION HEALTH NAVIGATION OUTREACH Action/FYI Patient is on [facility] CURRENT ROSTER Workbenc list for below and [...] Controlling Blood Pressure Upcoming OV converted per [place] protocol to AWV. Updated notes to address [...] Population Health Navigation Outreach [[id number]] C[facility] Prescriptions as of 05/03/2024 [...] capsule by mouth once daily. - Insulin [place], Disposable, (RELION PEN NEEDLES) 32 x 5/32 [...] kidney disease, stage 4 (severe) (HCC) *04/15/2023 detention current use of insulin (HCC) [Z79.4] 10/15/2023 Heart failure, unspecified ([facility]) [I50.9] 04/15/2023 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*04/15/2023 Encounter Status:Closed by JESSICA MCKINNON on 05/03/24[facility]07-[facility] Telephone encounter Note* Telephone Encounter - Diana Whittington LPN - 04/19/2024 9:04 AM EDT Patient returned call and went over results, notes from Dr James with understanding. Reminder of appt date and time in 3 months. [facility]07-24-2024 Miscellaneous Notes* Telephone Encounter - Diana Whittington [...] months. Amado James MD documented in this encounterRegency Hospital Company07-23-2024 Telephone encounter Note * Telephone Encounter - Mariza Graham MA - 04/18/2024 1:18 PM EDT Tried to reach pt at her number and pt son at his number but both lines just ring. Will try to call again later. Mariza Graham MA [facility]07-23-2024 Telephone encounter Note* Telephone Encounter - Amado James MD - 04/18/2024 11:36 AM EDT Please notify patient that her lab results are stable; stay on the same medications and follow up as planned in 3 months. Amado James MD [facility]07-15-2024 History of Present illness Narrative* Amado James [...] taking ASA 81 mg daily. Follows with [facility]; had recent echo showing no change [...] CATARACT EXTRACTION HX Right 10/26/2017 EGD W/O [facility] SPEC VARICIES INJ N/A 02/24/2022 [...] 1 capsule by mouth once daily. Insulin [place], Disposable, (RELION PEN NEEDLES) 32 x 5/32 [...] PPSV23 or PCV20) due on 04/15/2024 Covid-19 Vaccine(2022-24 season) due on 04/10/2025 Annual PCP Team [...] without long- term current use of insulin ([facility]) - ICD9: 250.40, 585.3, ICD10: E11.22, [...] Past Histories independently gathered by the clinical software support specialist and the remaining scribed note [...] PM. Mariza Graham MA documented in this encounterRegency Hospital Company07-15-2024 NoteHNO ID: [id number] Author: AMADO JAMES MD Service: ? Author [...] taking ASA 81 mg daily. Follows with [facility]; had recent echo showing no change [...] CATARACT EXTRACTION HX Right 10/26/2017 EGD W/O [facility] SPEC VARICIES INJ N/A 02/24/2022 [...] 1 capsule by mouth once daily. Insulin [place], Disposable, (RELION PEN NEEDLES) 32 x 5/32 " ndle Use as directed with insulin pen. 250.00. 4 injections/day. On insulin. Blood-Glucose Meter, Drum-type (ACCU-CHEK COMPACT PLUS CARE) kit Use as directed cyanocobalamin (VITAMIN B-12) 1,000 mcg tab Take 1 tablet by mouth once daily. Aspirin 81 mg Tab Take 81 mg by mouth. (more content not included)...[facility]07-09-2024 Telephone encounter Note* Telephone Encounter - Maciel Busby APRN.CNP - 04/04/2024 10:49 AM EDT STAMP Please reach out to patient for overdue appointment for chronic disease management with myself. If he/she is no longer following with Dr. James, please remove name from PCP field. Due for Medicare Wellness/Follow up, would need 40 minutes. Maciel Busby APRN.CNP [facility]07-09-2024 Miscellaneous Notes* Telephone Encounter - Maciel Busby APRN.CNP - 04/04/2024 10:49 AM EDT STAMP Please reach out to patient for overdue appointment for chronic disease management with myself. If he/she is no longer following with Dr. James, please remove name from PCP field. Due for Medicare Wellness/Follow up, would need 40 minutes. Maciel Busby APRN.CNP documented in this encounterRegency Hospital Company06-03-2024 NoteHNO ID: [id number] Author: JESSICA MCKINNON MA Service: ? Author Type: Distillery Worker Type: Progress Notes Filed: 02/28/2024 11:30 Note Text: POPULATION HEALTH NAVIGATION OUTREACH Action/FYI Patient is on [facility] CURRENT ROSTER Workbench list for [...] Jessica Mckinnon MA February 28, 2024 11:27 [facility]06-03-2024 History of Present illness Narrative* Jessica Mckinnon MA - 02/28/2024 11:27 AM EDT POPULATION HEALTH NAVIGATION OUTREACH Action/FYI Patient is on [facility] CURRENT ROSTER Workbench list for [...] 28, 2024 11:27 AM documented in this encounterRegency Hospital Company06-03-2024 NotePatient Outreach (NETNAV) ROSA MYERS ([id number]) 1950 F Date Time Provider Department 02/28/24 JESSICA MCKINNON During your visit today, we recorded the following information about you: Jessica Mckinnon MA 02/28/2024 11:30 AM Signed POPULATION HEALTH NAVIGATION OUTREACH Action/FYI Patient is on [place] [facility] CURRENT ROSTER Workbench list for below and needs appointment to address: DTaP,Tdap,Td Vaccine(1 - Tdap) RSV Vaccine(1 - 1-dose 60+ series) Dilated Retinal Exam Covid-19 Vaccine(2022- season) Advance Directive Discussion Behavioral Health Screening [...] Population Health Navigation Outreach [[id number]] Cmt: Nadeen [facility] 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 - AWV, Care gaps, HCC gap closure - [place] [facility] Prescriptions as of 02/28/2024 - carvedilol [...] capsule by mouth once daily. 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 Requested Prescriptions Pending Prescriptions Disp Refills carvedilol (COREG) 12.5 mg tablet 180 tablet 3 Sig: Take 1 tablet by mouth two times a day. Maciel Busby APRN.CNP [facility]05-28-2024 Miscellaneous Notes* Telephone Encounter - Maciel Busby APRN.CNP - 02/22/2024 2:32 PM EDT The following approved medication requests have been transmitted electronically. Requested Prescriptions Pending Prescriptions Disp Refills carvedilol (COREG) 12.5 mg tablet 180 tablet 3 Sig: Take 1 tablet by mouth two times a day. Maciel Busby APRN.RENEE * Telephone Encounter - Cindy Corona - [...] Thank you. Cindy Heart. documented in this encounterRegency Hospital Company05-28-2024 Telephone encounter Note * Telephone Encounter - [...] found Please advise. Thank you. Cindy Heart. [facility]04-25-2024 Telephone encounter Note* Telephone Encounter - Yaz Christy MA - 01/20/2024 2:12 PM EDT Call to pt's son and notified him that Rx has been sent in, verbalized understanding. Yaz Christy MA [facility]04-25-2024 Miscellaneous Notes* Telephone Encounter - Yaz Christy [...] request. Judie Paiz, RN documented in this encounterRegency Hospital Company04-25-2024 Telephone encounter Note * Telephone Encounter - Amado James MD - 01/20/2024 1:58 PM EDT OK to refill as ordered Amado James MD [facility]04-25-2024 NoteHNO ID: [id number] Author: CINDY EVANS MA Service: ? Author Type: Distillery Worker Type: Progress Notes Filed: 01/20/2024 11:04 Note Text: POPULATION HEALTH NAVIGATION OUTREACH Action/FYI Letter received and sent to be mailed. Navigation Signature: Cindy Bolick, Population Health Navigator January 20, 2024 11:03 [facility]04-25-2024 Telephone encounter Note* Telephone Encounter - [...] patient. Pended per request. Judie Paiz RN [facility]04-23-2024 NoteHNO ID: [id number] Author: JESSICA MCKINNON MA Service: ? Author Type: Distillery Worker Type: Progress Notes Filed: 01/18/2024 10:23 Note [...] Letter mailed HCC related Navigation Signature: Jessica Mckinnon MA January 18, 2024 7:29 [facility]04-23-2024 History of Present illness Narrative* Jessica Mckinnon MA - 01/18/2024 7:28 AM EDT POPULATION HEALTH NAVIGATION OUTREACH Action/FYI [...] Letter mailed HCC related Navigation Signature: Jessica Mckinnon MA January 18, 2024 7:29 AM documented in this encounterRegency Hospital Company04-23-2024 NotePatient Outreach (NETNAV) ROSA MYERS ([id number]) 1950 F Date Time Provider Department 01/18/24 JESSICA MCKINNON NETMILLYV During your visit today, we recorded the following information about you: Jessica Mckinnon MA 01/18/2024 10:23 AM Addendum POPULATION HEALTH NAVIGATION OUTREACH Action/ Patient is on Nade[employer] Workbench list [...] Letter mailed HCC related Navigation Signature: Jessica Mckinnon MA January [...] capsule by mouth once daily. - Insulin [place], Disposable, (RELION PEN NEEDLES) 32 x 5/32 [...] kidney disease, stage 4 (severe) (HCC) *04/15/2023 detention current use of insulin ([facility]) [Z79.4] 10/15/2023 Heart failure, unspecified ([facility]) [I50.9] 04/15/2023 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*04/15/2023 Letter Text Encoun (more content not included)...[facility]04-18-2024 Miscellaneous Notes* Telephone Encounter - Amado James [...] Thank you. Anastasia Mcdermott. documented in this encounterRegency Hospital Company03-07-2024 Miscellaneous Notes* Telephone Encounter - Maciel Busby APRN.CNP - 12/02/2023 12:57 PM EST The following [...] notify patient. Pushpa Heart documented in this encounterRegency Hospital Company03-01-2024 History of Present illness Narrative* Sandrita Caputo - 11/26/2023 1:21 PM EST Rosa Myers is identified through a medication adherence outreach initiative based on pharmacy claims data from [employer] (insurer) for Statin medication(s). Patient is reviewed [...] left message Sandrita Caputo documented in this encounterRegency Hospital Company09-25-2023 Miscellaneous Notes* Telephone Encounter - Cha Taveras [...] recheck. Maciel Busby APRN.CNP documented in this encounterRegency Hospital Company09-18-2023 Miscellaneous Notes* Telephone Encounter - Maciel Busby [...] and advise. Sandrita Weldon documented in this encounterRegency Hospital Company07-20-2023 History of Present illness Narrative* Amado James [...] help. Son states that she's a picker feeder. HM - Denies having Adv Dir/Living Will. [...] 1 capsule by mouth once daily. Insulin [place], Disposable, (RELION PEN NEEDLES) 32 x 5/32 [...] 4. Chronic kidney disease, stage 4 (severe) ([facility]) - ICD9: 585.4, ICD10: N18.4 - [...] body mass index of 40.0-44.9 in adult ([facility]) - ICD9: 278.01, V85.41, ICD10: E66.01, Z68.41 Stable - Cont watching diet 6 mo f/u with labs. I agree with the Chief Complaint, ROS, and Past Histories independently gathered by the clinical software support specialist and the remaining scribed note [...] PM. Yaz Christy Ma documented in this encounterRegency Hospital Company05-01-2023 History of Present illness Narrative* Samia Hollingsworth [...] Care Gap or Scheduling/Wellness visits Payer: Payor: [employer] / Plan: [employer] ACCESS / Product Type: PPO / Care [...] 25, 2023 10:41 AM documented in this encounterRegency Hospital Company04-24-2023 Miscellaneous Notes* Telephone Encounter - Mariza Graham Ma - 01/18/2023 11:12 AM EDT Order report for Humalog faxed to [facility], notifying them to fill. Mariza Graham Ma * Telephone Encounter - Sunni Brody [facility] - 01/18/2023 10:38 AM EDT Rosa Myers is calling Amado James MD today with concern regarding the RX for Tiffany marinelli has not been received at the [facility] pharmacy in [place]. Please send today if possible. Patientstates she did call our office and was advised this RX was already sent to [facility]. Patient notes the pharmacy has checked for this new RX and they state they do not have receipt of this. Patient has been identified by name and birthdate. Duration of symptoms: N/A Person calling: self Call patient at: at home [phone] (home) Was an appointment scheduled: No Closing statement: Results or non-symptom based questions: Thank you for calling [facility], your call will be returned within the next business day. Sunni Brody [facility] documented in this encounterRegency Hospital Company03-29-2023 History of Present illness Narrative* Aston Duarte ([employer]) - 12/23/2022 5:59 PM EDT Rosa Myers is identified through a medication adherence outreach initiative based on pharmacy claims data from [employer] (insurer) for Non-insulin DM medication(s). Patient is reviewed 12/23/22 due to medication adherence concerns with the following medications (name, strength, sig): Farxiga 10mg, QD. Per reconcile dispense, last fill date and days supply: Filled 12/15/22 for 30 day supply Outcome of review/outreach: (choose outcome source and status) - Filled before Next fill date per reconcile dispense Aston Duarte ([employer]) documented in this encounterRegency Hospital Company03-20-2023 Miscellaneous Notes* Telephone Encounter - Maciel Busby [...] patient. Pushpa Neff Pss documented in this encounterRegency Hospital Company02-07-2023 Miscellaneous Notes* Telephone Encounter - Yaz Christy [...] LPN - 10/30/2022 10:50 AM EST Jacqueline Carrero called and they are not able to get the Levemir pens because they are making changes on this. Asking if they can give the vials and syringes will be needed also. Please advise the pharmacy with new prescriptions. Kathi Crane LPN documented in this encounterRegency Hospital Company10-19-2022 Miscellaneous Notes* Telephone Encounter - Amado James MD - 07/15/2022 6:31 PM EDT OK to refill as ordered mAado James MD * Telephone Encounter - Rufina [...] Thank you. Rufina Stuart documented in this encounterRegency Hospital Company10-18-2022 Miscellaneous Notes* Telephone Encounter - Maciel Busby [...] pharmacy. No need to notify patient. Nata eBar documented in this encounterRegency Hospital Company10-17-2022 History of Present illness Narrative* Amado James [...] 4 times daily to inject insulin Insulin [place], Disposable, (RELION PEN NEEDLES) 32 x 5/32 [...] Lymph% 07/06/2022 15.4 Abs Lymph 07/06/2022 1.30 Yuma% 07/06/2022 9.6 Abs Yuma 07/06/2022 0.81 Eosin% 07/06/2022 1.7 Abs Eosin 07/06/2022 0.14 Baso% 07/06/2022 1.1 Abs Baso 07/06/2022 0.09 Immature Gran % 07/06/2022 0.4 Abs Immature Gran 07/06/2022 0.03 NRBC 07/06/2022 0.0 Absolute nRBC 07/06/2022 <0.01 Diff Type 07/06/2022 Auto ASSESSMENT/PLAN: 1. Controlled type 2 diabetes mellitus without complication, with long-term current use of insulin ([facility]) - ICD9: 250.00, V58.67, ICD10: E11.9, [...] - Cont taking daily iron - See DrJuan Friend 9. H/O: GI bleed - ICD9: V12.79, ICD10: Z87.19 - Cont to monitor CBC 6 mo f/u with labs I agree with the Chief Complaint, ROS, and Past Histories independently gathered by the clinical software support specialist and the remaining scribed note [...] PM. Yaz Christy Ma documented in this encounterRegency Hospital Company07-12-2022 Instructions* Patient Instructions* Yaz Christy Ma - 04/07/2022 3:35 PM EDT Anemia - Take Iron once daily, may only need to take for a few months. Gastro - Continue to take Protonix 40 mg once daily. New prescription has been sent into the pharmacy. Skin - Refer to Dermatology to evaluate the area, if not improving. documented in this encounterRegency Hospital Company07-12-2022 History of Present illness Narrative* Amado James [...] hospital f/u. Pt here today with her [id number], Ave. GI - Was prescribed Protonix 40 [...] 75 mg once daily. HM - Declines Package Concierge. Does not have Adv Dir/Living Will. Past medical history, appointments, medications, allergies reviewed. Previous Medical History PAST MEDICAL HISTORY Diagnosis Date Allergic rhinitis due to other allergen Essential hypertension, benign Type II or unspecified type diabetes mellitus without mention of complication, uncontrolled Previous Surgical History PAST SURGICAL HISTORY Procedure Laterality Date CATARACT EXTRACTION HX Right 10/26/2017 EGD W/O [facility] SPEC VARICIES INJ N/A 02/24/2022 [...] 4 times daily to inject insulin Insulin [place], Disposable, (RELION PEN NEEDLES) 32 x 5/32 [...] Lymph% 04/02/2022 10.7 Abs Lymph 04/02/2022 1.17 Yuma% 04/02/2022 7.3 Abs Yuma 04/02/2022 0.80 Eosin% 04/02/2022 1.1 Abs Eosin [...] Past Histories independently gathered by the clinical software support specialist and the remaining scribed note [...] PM. Yaz Christy Ma documented in this encounterRegency Hospital Company06-20-2022 History of Present illness Narrative* Samia Hollingsworth [...] Payer: Payor: [employer] / Plan: AN[employer] ACCESS / Product Type: PPO / [...] 16, 2022 2:38 PM documented in this encounterRegency Hospital Company01-04-2022 History of Past illness Narrative* Problem Noted Date Diagnosed Date Resolved Date Stage 3b chronic kidney disease 09/30/2021 10/15/2023 documented as of this encounter (statuses as of 11/26/2023) [facility]01-04-[facility] History of Past illness Narrative* Problem Noted Date Diagnosed Date Resolved Date Stage 3b chronic kidney disease 09/30/2021 10/15/2023 documented as of this encounter (statuses as of 12/02/2023) [facility]01-04-20[facility] History of Past illness Narrative* Problem Noted Date Diagnosed Date Resolved Date Stage 3b chronic kidney disease 09/30/2021 10/15/2023 documented as of this encounter (statuses as of 01/14/2024) [facility]01-01-2014 Evaluation note* Diagnosis Onset Date Resolution Status SALGADO (dyspnea on exertion) ac osei 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 heart failure) chronic Essential hypertension chron ic History of coronary artery stent placement September, 14 chronic Hyperlipidemia chronic Ischemic cardiomyopathy steward/stewardess smoke room daniel [facility] Work Phone: Evaluation note* Diagnosis Onset Date Resolution Status ELIDA (acute kidney injury) ac osei Anemia acute Elevated d-dimer acute GI bleed acute CHF exacerbation chronic [facility] Work Phone: Evaluation note* Diagnosis Encounter for screening mammogram for breast cancer documented in this encounter [facility]* Diagnosis Onset Date Resolution Status ELIDA (acute kidney injury) re solved CHF exacerbation resolved Elevated d-dimer resolved [facility] Work Phone: Evaluation note* Diagnosis Controlled [...] of digestive system documented in this encounter [facility]* Diagnosis Onset Date Resolution Status ELIDA (acute kidney injury) re solved CHF exacerbation resolved Elevated d-dimer resolved 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 heart failure) chronic Chronic kidney disease (CKD) chronic Essential hypertension chron ic History of coronary artery stent placement September, chronic Hyperlipidemia chronic Ischemic cardiomyopathy steward/stewardess smoke room daniel [facility] Work Phone: Evaluation note* Diagnosis Controlled [...] of digestive system documented in this encounter [facility]* Diagnosis Controlled type 2 diabetes mellitus without complication, with long-term current use of insulin (HCC)- Primary documented in this encounter [facility]* Diagnosis Controlled type 2 diabetes mellitus without complication, with long-term current use of insulin (HCC) Controlled type 2 diabetes mellitus without complication, without long-term current use of insulin (HCC) documented in this encounter [facility]* Diagnosis Type 2 diabetes mellitus with stage 3b chronic kidney disease, without long-term current use of insulin (HCC)- Primary documented in this encounter [facility]* Diagnosis Essential hypertension, benign Cerebral infarction, unspecified mechanism (HCC) documented in this encounter [facility]* Diagnosis Encounter for screening mammogram for breast cancer documented in this encounter [facility] note* Diagnosis Type 2 diabetes mellitus with stage 3b chronic kidney disease, without long-term current use of insulin (HCC)- Primary Essential hypertension, benign Hyperlipidemia, unspecified hyperlipidemia type Chronic kidney disease, stage 4 (severe) ([facility]) Congestive heart failure, unspecified HF chronicity, unspecified heart failure type (HCC) Bilateral leg edema Edema H/O: GI bleed Personal history of other diseases of digestive system Anemia, unspecified type Skin lesion Unspecified disorder of skin and subcutaneous tissue Morbid obesity with body mass index of 40.0-44.9 in adult ([facility]) Morbid obesity documented in this encounter [facility]* Diagnosis Elevated TSH- Primary Nonspecific abnormal results of thyroid function study documented in this encounter [facility]* Diagnosis Bilateral leg edema Edema Essential hypertension, benign Type 2 diabetes mellitus with stage 3b chronic kidney disease, without long-term current use of insulin (HCC) Controlled type 2 diabetes mellitus without complication, with long-term current use of insulin ([facility]) documented in this encounter [facility]* Diagnosis Type 2 diabetes mellitus with stage 3b chronic kidney disease, without long-term current use of insulin ([facility]) documented in this encounter [facility]* Diagnosis Controlled type 2 diabetes mellitus without complication, with long-term current use of insulin ([facility]) documented in this encounter [facility]* Diagnosis Essential hypertension, benign documented in this encounter [facility]* Diagnosis Hyperlipidemia, unspecified hyperlipidemia type- Primary Chronic kidney disease, stage 4 (severe) ([facility]) Heart failure, unspecified HF chronicity, unspecified heart failure type ([facility]) Morbid obesity with body mass index of 40.0-44.9 in adult ([facility]) Morbid obesity Type 2 diabetes mellitus with stage 3b chronic kidney disease, without long-term current use of insulin (HCC) Essential hypertension, benign Anemia, unspecified type Bilateral leg edema Edema Cellulitis of skin Cellulitis and abscess of unspecified site Other depression [facility] Diagnosis Diabetic ulcer of right midfoot associated with type 2 diabetes mellitus, unspecified ulcer stage ([facility])- Primary Morbid obesity with body mass index of 40.0-44.9 in adult ([facility]) Morbid obesity Essential hypertension, benign Type 2 diabetes mellitus with chronic kidney disease, with long-term current use of insulin, unspecified CKD stage ([facility]) [facility]* Diagnosis Type 2 diabetes mellitus with stage 3b chronic kidney disease, without long-term current use of insulin (HCC) Controlled type 2 diabetes mellitus without complication, with long-term current use of insulin (HCC) [facility]* Diagnosis Encounter for annual wellness exam [...] 2 diabetes mellitus, unspecified ulcer stage (HCC) Other depression Anemia, unspecified type Morbid obesity with body mass index of 40.0-44.9 in adult (HCC) Morbid obesity documented in this encounter [facility]* Diagnosis Type 2 diabetes mellitus with chronic kidney disease, with long-term current use of insulin, unspecified CKD stage (HCC)- Primary [facility]* Diagnosis Hospital discharge follow-up- Primary Other follow-up examination Type 2 diabetes mellitus with hypoglycaemia without coma (HCC) CKD (chronic kidney disease) stage 4, GFR 15-29 ml/min (HCC) Chronic kidney disease, Stage IV (severe) Chronic anemia Anemia, unspecified Chronic heart failure with preserved ejection fraction (HCC) [facility]* Diagnosis Type 2 diabetes mellitus with [...] of insulin (HCC) documented in this encounter [facility] note* Diagnosis Type 2 diabetes mellitus with chronic kidney disease, with long-term current use of insulin, unspecified CKD stage (HCC)- Primary documented in this encounter [facility] note* Diagnosis Type 2 diabetes mellitus with chronic kidney disease, with long-term current use of insulin, unspecified CKD stage (HCC)- Primary Essential hypertension, benign Hyperlipidemia, unspecified hyperlipidemia type Chronic kidney disease, stage 4 (severe) (HCC) documented in this encounter [facility] note* Diagnosis Anemia, unspecified type- Primary documented in this encounter [facility] note* Diagnosis Anemia, unspecified type Chronic renal failure, unspecified CKD stage Pressure injury of sacral region, stage 3 (HCC) Anemia, unspecified type Moderate malnutrition (CMS/HCC) (HCC) Acute metabolic encephalopathy Anxiety and depression Debility Unspecified debility documented in this encounter [facility] note* Diagnosis Dialysis complication, initial encounter- Primary documented in this encounter [facility] note* Diagnosis Dialysis complication, subsequent encounter [facility] Diagnosis Dialysis complication, subsequent encounter documented in this encounter [facility] note* Diagnosis ESRD (end stage renal disease) on dialysis (HCC)- Primary End stage renal disease ESRD (end stage renal disease) on dialysis (HCC) End stage renal disease documented in this encounter [facility] Discharge instructionsAmbulatory Orders* Phase II, Outpatient Cardiac Rehab Location: [facility] [employer] Work Phone: Reparw for referral (narrative)* Diagnostic Procedure Only (Routine) - Pending Review Specialty Diagnoses / Procedures Referred By Thuan jama Referred To Contact [facility] Diagnoses Encounter for screening mammogram for breast cancer Procedures BUSTER SCREENING SCREENING MAMMOGRAPHY BI 2-VIEW BREAST INC Amado Diaz MD [address] [place] [address] [facility] [address] [place] [address] Referral ID Status Reason Start Date Expiration Date Visits Requested Visits Authorized [id number] Pending Review Auto-Generat ed Referral 03/04/2022 04/03/2023 1 1 [facility] for referral (narrative)* Diagnostic Procedure Only (Routine) - Pending Review Specialty Diagnoses / Procedures Referred By Thuan jama Referred To Contact [facility] IMAGING Diagnoses Encounter for screening mammogram for breast cancer Procedures BUSTER SCREENING SCREENING MAMMOGRAPHY BI 2-VIEW BREAST INC Amado Diaz MD [address] [place] [address] [facility] [address] [place] [address] Referral ID Status Reason Start Date Expiration Date Visits Requested Visits Authorized [id number] Pending Review Auto-Generat ed Referral 02/24/2023 03/25/2024 1 1 [facility] (narrative)No reason for referral information availableWKing's [facility] [place] Work Phone: Reason for visit Narrative* Imaging (Emergency) - Closed Specialty Diagnoses / Procedures Referred By Thuan t Referred To Contact Radiology Diagnoses Dialysis complication, subsequent encounter Procedures IR CVC Tunneled Dialysis Cath Exchange IR CVC tunneled dialysis catheter placement Re Maciel MD [address] [place] [id number] Phone: tel: fax: Referral ID Status Reason Start Date Expiration Date Visits Re quested Visits Authorized [id number] Closed 07/03/2025 07/03/2026 1 1 [facility] Chief Complaint and Reason for Visit Chief [...] injury) February 05, 2025 1:07pm Family History No Family History Records Found Relationship Condition Age at Onset Recorded Date/T roman father Diabetes mellitus Unknown Cardiac disease Unknown Coronary artery disease Unknown mother Cardiac disease Unknown Advance Directives No Advanced Directives Records Found Advance Directive Response Recorded Date/ Time Advance Directives No September 28, 2013 10:29am Living Will No February 22, 2022 8 :54am Power of Glue Bone Crusher No February 22, 2022 8:54am Advance Directive Response Recorded Date/ Time Advance Directives No September 28, 2013 10:29am Living Will No February 22, 2022 1 :32pm Power of Glue Bone Crusher No February 22, 2022 1:32pm Advance Directive Response Recorded Date/ Time Living Will No February 22, 2022 1 :32pm Do you have a Healthcare Power of Glue Bone Crusher? No February 22, 2022 1:32pm Living Will No September 27 1:36am Do you have a Healthcare Power of Glue Bone Crusher? No September 27, 2024 1:36am Living Will No October 28 1:57am Do you have a Healthcare Power of Glue Bone Crusher? No October 28, 2024 1:57am Advance Directives No September 28, 2013 10:29am Advance Directive Response Recorded Date/ Time Living Will No February 22, 2022 1 :32pm Do you have a Healthcare Power of Glue Bone Crusher? No February 22, 2022 1:32pm Living Will No September 27 1:36am Do you have a Healthcare Power of Glue Bone Crusher? No September 27, 2024 1:36am Living Will No October 28 1:57am Do you have a Healthcare Power of Glue Bone Crusher? No October 28, 2024 1:57am Do you have a Healthcare Power of Glue Bone Crusher? No February 05, 2025 9:52am Advance Directives No September 28, 2013 10:29am Advance Directive Response Recorded Date/ Time Living Will No February 22, 2022 1 :32pm Do you have a Healthcare Power of Glue Bone Crusher? No February 22, 2022 1:32pm Living Will No September 27 1:36am Do you have a Healthcare Power of Glue Bone Crusher? No September 27, 2024 1:36am Living Will No October 28 1:57am Do you have a Healthcare Power of Glue Bone Crusher? No October 28, 2024 1:57am Do you have a Healthcare Power of Glue Bone Crusher? No February 05, 2025 3:55pm Advance Directives [...] stage (HCC) Procedures CONSULT TO PODIATRY OFFICE/OUTPATIENT [facility] 60 MINUTES Amado James MD [address] [place] [address] Referral ID Status Reason Start Date Expiration Date Visits Requested Visits Authorized [id number] Authorized PCP Requested Referral 05/06/2024 05/06/2025 1 [...] or prosecute any alcohol or drug abuse patient.[facility] CompanyIn the event this information is protected by the Federal Confidentiality of Alcohol and Drug Abuse Patient Records regulations: The Federal rules restrict any use of the information to criminally investigate or prosecute any alcohol or drug abuse patient.[facility] CompanyIn the event this information is protected by the Federal Confidentiality of Alcohol and Drug Abuse Patient Records regulations: The Federal rules restrict any use of the information to criminally investigate or prosecute any alcohol or drug abuse patient.[facility] CompanyIn the event this information is protected by the Federal Confidentiality of Alcohol and Drug Abuse Patient Records regulations: The Federal rules restrict any use of the information to criminally investigate or prosecute any alcohol or drug abuse patient.[facility] CompanyIn the event this information is protected by the Federal Confidentiality of Alcohol and Drug Abuse Patient Records regulations: The Federal rules restrict any use of the information to criminally investigate or prosecute any alcohol or drug abuse patient.[facility] CompanyIn the event this information is protected by the Federal Confidentiality of Alcohol and Drug Abuse Patient Records regulations: The Federal rules restrict any use of the information to criminally investigate or prosecute any alcohol or drug abuse patient.[facility] CompanyIn the event this information is protected by the Federal Confidentiality of Alcohol and Drug Abuse Patient Records regulations: The Federal rules restrict any use of the information to criminally investigate or prosecute any alcohol or drug abuse patient.[facility] CompanyIn the event this information is protected by the Federal Confidentiality of Alcohol and Drug Abuse Patient Records regulations: The Federal rules restrict any use of the information to criminally investigate or prosecute any alcohol or drug abuse patient.[facility] CompanyIn the event this information is protected by the Federal Confidentiality of Alcohol and Drug Abuse Patient Records regulations: The Federal rules restrict any use of the information to criminally investigate or prosecute any alcohol or drug abuse patient.[facility] CompanyIn the event this information is protected by the Federal Confidentiality of Alcohol and Drug Abuse Patient Records regulations: The Federal rules restrict any use of the information to criminally investigate or prosecute any alcohol or drug abuse patient.[facility] CompanyIn the event this information is protected by the Federal Confidentiality of Alcohol and Drug Abuse Patient Records regulations: The Federal rules restrict any use of the information to criminally investigate or prosecute any alcohol or drug abuse patient.[facility] CompanyIn the event this information is protected by the Federal Confidentiality of Alcohol and Drug Abuse Patient Records regulations: The Federal rules restrict any use of the information to criminally investigate or prosecute any alcohol or drug abuse patient.[facility] CompanyIn the event this information is protected by the Federal Confidentiality of Alcohol and Drug Abuse Patient Records regulations: The Federal rules restrict any use of the information to criminally investigate or prosecute any alcohol or drug abuse patient.[facility] CompanyIn the event this information is protected by the Federal Confidentiality of Alcohol and Drug Abuse Patient Records regulations: The Federal rules restrict any use of the information to criminally investigate or prosecute any alcohol or drug abuse patient.[facility] CompanyIn the event this information is protected by the Federal Confidentiality of Alcohol and Drug Abuse Patient Records regulations: The Federal rules restrict any use of the information to criminally investigate or prosecute any alcohol or drug abuse patient.[facility] CompanyIn the event this information is protected by the Federal Confidentiality of Alcohol and Drug Abuse Patient Records regulations: The Federal rules restrict any use of the information to criminally investigate or prosecute any alcohol or drug abuse patient.[facility] CompanyIn the event this information is protected by the Federal Confidentiality of Alcohol and Drug Abuse Patient Records regulations: The Federal rules restrict any use of the information to criminally investigate or prosecute any alcohol or drug abuse patient.[facility] CompanyIn the event this information is protected by the Federal Confidentiality of Alcohol and Drug Abuse Patient Records regulations: The Federal rules restrict any use of the information to criminally investigate or prosecute any alcohol or drug abuse patient.[facility] CompanyIn the event this information is protected by the Federal Confidentiality of Alcohol and Drug Abuse Patient Records regulations: The Federal rules restrict any use of the information to criminally investigate or prosecute any alcohol or drug abuse patient.[facility] CompanyIn the event this information is protected by the Federal Confidentiality of Alcohol and Drug Abuse Patient Records regulations: The Federal rules restrict any use of the information to criminally investigate or prosecute any alcohol or drug abuse patient.[facility] CompanyIn the event this information is protected by the Federal Confidentiality of Alcohol and Drug Abuse Patient Records regulations: The Federal rules restrict any use of the information to criminally investigate or prosecute any alcohol or drug abuse patient.[facility] CompanyIn the event this information is protected by the Federal Confidentiality of Alcohol and Drug Abuse Patient Records regulations: The Federal rules restrict any use of the information to criminally investigate or prosecute any alcohol or drug abuse patient.[facility] CompanyIn the event this information is protected by the Federal Confidentiality of Alcohol and Drug Abuse Patient Records regulations: The Federal rules restrict any use of the information to criminally investigate or prosecute any alcohol or drug abuse patient.[facility] CompanyIn the event this information is protected by the Federal Confidentiality of Alcohol and Drug Abuse Patient Records regulations: The Federal rules restrict any use of the information to criminally investigate or prosecute any alcohol or drug abuse patient.[facility] CompanyIn the event this information is protected by the Federal Confidentiality of Alcohol and Drug Abuse Patient Records regulations: The Federal rules restrict any use of the information to criminally investigate or prosecute any alcohol or drug abuse patient.[facility] CompanyIn the event this information is protected by the Federal Confidentiality of Alcohol and Drug Abuse Patient Records regulations: The Federal rules restrict any use of the information to criminally investigate or prosecute any alcohol or drug abuse patient.[facility] CompanyIn the event this information is protected by the Federal Confidentiality of Alcohol and Drug Abuse Patient Records regulations: The Federal rules restrict any use of the information to criminally investigate or prosecute any alcohol or drug abuse patient.[facility] CompanyIn the event this information is protected by the Federal Confidentiality of Alcohol and Drug Abuse Patient Records regulations: The Federal rules restrict any use of the information to criminally investigate or prosecute any alcohol or drug abuse patient.[facility] CompanyIn the event this information is protected by the Federal Confidentiality of Alcohol and Drug Abuse Patient Records regulations: The Federal rules restrict any use of the information to criminally investigate or prosecute any alcohol or drug abuse patient.[facility] CompanyIn the event this information is protected by the Federal Confidentiality of Alcohol and Drug Abuse Patient Records regulations: The Federal rules restrict any use of the information to criminally investigate or prosecute any alcohol or drug abuse patient.[facility] CompanyIn the event this information is protected by the Federal Confidentiality of Alcohol and Drug Abuse Patient Records regulations: The Federal rules restrict any use of the information to criminally investigate or prosecute any alcohol or drug abuse patient.[facility] CompanyIn the event this information is protected by the Federal Confidentiality of Alcohol and Drug Abuse Patient Records regulations: The Federal rules restrict any use of the information to criminally investigate or prosecute any alcohol or drug abuse patient.[facility] CompanyIn the event this information is protected by the Federal Confidentiality of Alcohol and Drug Abuse Patient Records regulations: The Federal rules restrict any use of the information to criminally investigate or prosecute any alcohol or drug abuse patient.[facility] CompanyIn the event this information is protected by the Federal Confidentiality of Alcohol and Drug Abuse Patient Records regulations: The Federal rules restrict any use of the information to criminally investigate or prosecute any alcohol or drug abuse patient.[facility] CompanyIn the event this information is protected by the Federal Confidentiality of Alcohol and Drug Abuse Patient Records regulations: The Federal rules restrict any use of the information to criminally investigate or prosecute any alcohol or drug abuse patient.[facility] CompanyIn the event this information is protected by the Federal Confidentiality of Alcohol and Drug Abuse Patient Records regulations: The Federal rules restrict any use of the information to criminally investigate or prosecute any alcohol or drug abuse patient.[facility] CompanyIn the event this information is protected by the Federal Confidentiality of Alcohol and Drug Abuse Patient Records regulations: The Federal rules restrict any use of the information to criminally investigate or prosecute any alcohol or drug abuse patient.[facility] CompanyIn the event this information is protected by the Federal Confidentiality of Alcohol and Drug Abuse Patient Records regulations: The Federal rules restrict any use of the information to criminally investigate or prosecute any alcohol or drug abuse patient.[facility] CompanyIn the event this information is protected by the Federal Confidentiality of Alcohol and Drug Abuse Patient Records regulations: The Federal rules restrict any use of the information to criminally investigate or prosecute any alcohol or drug abuse patient.[facility] CompanyIn the event this information is protected by the Federal Confidentiality of Alcohol and Drug Abuse Patient Records regulations: The Federal rules restrict any use of the information to criminally investigate or prosecute any alcohol or drug abuse patient.[facility] CompanyIn the event this information is protected by the Federal Confidentiality of Alcohol and Drug Abuse Patient Records regulations: The Federal rules restrict any use of the information to criminally investigate or prosecute any alcohol or drug abuse patient.[facility] CompanyIn the event this information is protected by the Federal Confidentiality of Alcohol and Drug Abuse Patient Records regulations: The Federal rules restrict any use of the information to criminally investigate or prosecute any alcohol or drug abuse patient.[facility] CompanyIn the event this information is protected by the Federal Confidentiality of Alcohol and Drug Abuse Patient Records regulations: The Federal rules restrict any use of the information to criminally investigate or prosecute any alcohol or drug abuse patient.[facility] CompanyIn the event this information is protected by the Federal Confidentiality of Alcohol and Drug Abuse Patient Records regulations: The Federal rules restrict any use of the information to criminally investigate or prosecute any alcohol or drug abuse patient.[facility] CompanyIn the event this information is protected by the Federal Confidentiality of Alcohol and Drug Abuse Patient Records regulations: The Federal rules restrict any use of the information to criminally investigate or prosecute any alcohol or drug abuse patient.[facility] CompanyIn the event this information is protected by the Federal Confidentiality of Alcohol and Drug Abuse Patient Records regulations: The Federal rules restrict any use of the information to criminally investigate or prosecute any alcohol or drug abuse patient.[facility] CompanyIn the event this information is protected by the Federal Confidentiality of Alcohol and Drug Abuse Patient Records regulations: The Federal rules restrict any use of the information to criminally investigate or prosecute any alcohol or drug abuse patient.[facility] CompanyIn the event this information is protected by the Federal Confidentiality of Alcohol and Drug Abuse Patient Records regulations: The Federal rules restrict any use of the information to criminally investigate or prosecute any alcohol or drug abuse patient.[facility] CompanyIn the event this information is protected by the Federal Confidentiality of Alcohol and Drug Abuse Patient Records regulations: The Federal rules restrict any use of the information to criminally investigate or prosecute any alcohol or drug abuse patient.[facility] CompanyIn the event this information is protected by the Federal Confidentiality of Alcohol and Drug Abuse Patient Records regulations: The Federal rules restrict any use of the information to criminally investigate or prosecute any alcohol or drug abuse patient.[facility] CompanyIn the event this information is protected by the Federal Confidentiality of Alcohol and Drug Abuse Patient Records regulations: The Federal rules restrict any use of the information to criminally investigate or prosecute any alcohol or drug abuse patient.[facility] CompanyIn the event this information is protected by the Federal Confidentiality of Alcohol and Drug Abuse Patient Records regulations: The Federal rules restrict any use of the information to criminally investigate or prosecute any alcohol or drug abuse patient.[facility] CompanyIn the event this information is protected by the Federal Confidentiality of Alcohol and Drug Abuse Patient Records regulations: The Federal rules restrict any use of the information to criminally investigate or prosecute any alcohol or drug abuse patient.[facility] CompanyIn the event this information is protected by the Federal Confidentiality of Alcohol and Drug Abuse Patient Records regulations: The Federal rules restrict any use of the information to criminally investigate or prosecute any alcohol or drug abuse patient.[facility] Care Teams (unrecognized sec tion and content) Scroll Assembler Relationship Specialty Start Date End Date Amado James MD [address] [place], [place] [id number] PCP - General 04/25/09 Scroll Assembler Relationship Specialty Start Date End Date Amado James MD [address] [place] [address] PCP - General 04/25/09 Scroll Assembler Relationship Specialty Start Date End Date Amado James MD [address] [facility] [place] [address] PCP - General 04/25/09 Scroll Assembler Relationship Specialty [place] [address] [place] [address], [place] [address] PCP - General 04/25/09 Scroll Assembler Relationship Specialty Start Date End Date Amado James MD [address] [place] [address], [place] [address] PCP - General 04/25/09 Scroll Assembler Relationship Specialty Start Date End Date Amado James MD [address] [place] [address], [place] [address] PCP - General 04/25/09 Scroll Assembler Relationship Specialty Start Date End Date Amado James MD [address] [place] [address], [place] [address] PCP - General 04/25/09 Scroll Assembler Relationship Specialty Start Date End Date Amado James MD [address] [place] [address], [place] [address] PCP - General 04/25/09 Scroll Assembler Relationship Specialty Start Date End Date Amado James MD [facility] [place] [address] PCP - General 04/25/09 Scroll Assembler Relationship Specialty Start Date End Date Amado James MD [address] [place] [address], [place] [address] PCP - General 04/25/09 Scroll Assembler Relationship Specialty Start Date End Date Amado James MD [address] [place] [address], [place] [address] PCP - General 04/25/09 Scroll Assembler Relationship Specialty Start Date End Date Amado James MD [address] [place] [address] PCP - General 04/25/09 Scroll Assembler Relationship Specialty Start Date End Date Amado James MD [address] [place] [address] PCP - General 04/25/09 Team Status: Active Member Role Status Dates Dr. Amado James MD Family Provider Active Dr. Amado James MD Primary Care Provider Active Team Status: Inactive Member Role Status Dates Dr. Amado James MD Primary Care Provider, Referr ing Provider Active Carmela Funk AIR AND MISSILE DEFENSE CREWMEMBER, AIR AND MISSILE DEFENSE CREWMEMBER-C Attending Provider Active Team Status: Inactive Member Role Status Dates Dr. Amado James MD Primary Care Provider Active Carmela Funk AIR AND MISSILE DEFENSE CREWMEMBER, AIR AND MISSILE DEFENSE CREWMEMBER-C Attending Provider, Referring P andrew Active Scroll Assembler Relationship Specialty Start Date End Date Amado James MD [address] [place] [address] PCP - General 04/25/09 Scroll Assembler Relationship Specialty Start Date End Date Amado James MD [address] [place] [address] PCP - General 04/25/09 Scroll Assembler Relationship Specialty Start Date End Date Amado James MD [address] [place] [address] PCP - General 04/25/09 Scroll Assembler Relationship Specialty Start Date End Date Amado James MD [address] [place] [address] PCP - General 04/25/09 Scroll Assembler Relationship Specialty Start Date End Date Amado James MD [address] [place] [address] PCP - General 04/25/09 Scroll Assembler Relationship Specialty Start Date End Date Amado James MD [address] [place] [address] PCP - General 04/25/09 Scroll Assembler Relationship Specialty Start Date End Date Amado James MD [address] [place] [address] PCP - General 04/25/09 Scroll Assembler Relationship Specialty Start Date End Date Amado James MD [address] [place] [address] PCP - General 04/25/09 Scroll Assembler Relationship Specialty Start Date End Date Amado James MD [address] [place] [address] PCP - General 04/25/09 Scroll Assembler Relationship Specialty Start Date End Date Amado James MD [address] [place] [address] PCP - General 04/25/09 Scroll Assembler Relationship Specialty Start Date End Date Amado James MD [address] [place] [address] PCP - General 04/25/09 Scroll Assembler Relationship Specialty Start Date End Date Amado James MD [address] [place] [address] PCP - General 04/25/09 Scroll Assembler Relationship Specialty Start Date End Date Amado James MD [address] [place] [address] PCP - General 04/25/09 Scroll Assembler Relationship Specialty Start Date End Date Amado James MD [address] [place] [address] PCP - General 04/25/09 Scroll Assembler Relationship Specialty Start Date End Date Amado James MD [address] [place] [address] PCP - General 04/25/09 Scroll Assembler Relationship Specialty Start Date End Date Amado James MD [address] [place] [address] PCP - General 04/25/09 Rufina Soares SOCK LINING STITCHER.BELLMAN [address] [place] [address] Weigh And Charge Worker Family Medicine 09/03/24 Scroll Assembler Relationship Specialty Start Date End Date Amado James MD [address] [place] [address] PCP - General 04/25/09 Rufina Soares APRN.BELLMAN [address] [place] [address] Weigh And Charge Worker Family Medicine 09/03/24 Scroll Assembler Relationship Specialty Start Date End Date Amado James MD [address] [place] [address] PCP - General 04/25/09 Rufina Soares APRN.BELLMAN [address] [facility] [place] [address] Weigh And Charge Worker Family Medicine 09/03/24 Maciel Busby APRN.BELLMAN [address] [facility] [place] [address] Weigh And Charge Worker Family Medicine 09/12/24 Scroll Assembler Relationship Specialty Start Date End Date Amado James MD [address] [facility] [place] [address] PCP - General 04/25/09 Rufina Soares APRN.BELLMAN [address] [facility] [place] [address] Weigh And Charge Worker Family Medicine 09/03/24 Maciel Busby APRN.BELLMAN [address] [facility] [place] [address] Weigh And Charge Worker [facility] Medicine 09/12/24 Scroll Assembler Relationship Specialty Start Date End Date Amado James MD [address] [facility] [place] [address] PCP - General 04/25/09 Rufina Soares APRN.BELLMAN [address] [facility] [place] [address] Weigh And Charge Worker Family Medicine 09/03/24 Maciel Busby APRN.BELLMAN [address] [facility] [place] [address] Weigh And Charge Worker Family Medicine 09/12/24 Scroll Assembler Relationship Specialty Start Date End Date Amado James MD [address] [place] [address] PCP - General 04/25/09 Rufina Soares APRN.BELLMAN [address] [place] [address] Weigh And Charge Worker Family Medicine 09/03/24 Maciel Busby APRN.BELLMAN [address] [place] [address] Weigh And Charge Worker Family Medicine 09/12/24 Scroll Assembler Relationship Specialty Start Date End Date Amado James MD [address] [place] [address] PCP - General 04/25/09 Rufina Soares APRN.BELLMAN [address] [place] [address] Weigh And Charge Worker Family Medicine 09/03/24 Maciel Busby APRN.BELLMAN [address] [place] [address] [facility] Scroll Assembler Relationship Specialty Start Date End Date Amado James MD [address] [place] [address] PCP - General 04/25/09 Rufina Soares APRN.BELLMAN [address] [place] [address] Weigh And Charge Worker Family Medicine 09/03/24 Maciel Busby APRN.BELLMAN [address] [place] [address] Weigh And Charge Worker Family [facility] 09/12/24 Team Status: Active Member Role Status Dates Dr. Amado James MD Primary Care Provider Active Team Status: Inactive Member Role Status Dates Dr. Amado James MD Primary Care Provider Active Start: October 26, 2024 End: October 27, 2024 Dr. Leyda Eriwn DPM Attending Provider Active Start: October 26, [...] 2025 End: January 29, 2025 ORION Curtis Referring Provider Active St art: January 29, [...] Active Member Role Status Dates Dr. Amado Jamse MD Primary Care Provider Active Start: February [...] Start: February 05, 2025 Dr. Eduardo Corona , Emergency Provider Active Start: February 05, 2025 [...] t: February 05, 2025 Dr. Thad Cohen , DO Other Provider Active St art: February 05, 2025 Dr. Tg Waller MD Other Provider Active Start: February 05, 2025 Dr. Jam De La Rosa MD Other Provider Active St art: February 05, 2025 Dr. Mike Martinez , Other Provider Active Start: February 05, 2025 [...] Start: February 05, 2025 Dr. Eduardo Corona , Emergency Provider Active Start: February 05, 2025 [...] February 06, 2025 Dr. Eduardo Corona , DO Emergency Provider Active Start: February 06, 2025 Dr. Zachery Gomez MD Admit Provider Active Sta rt: February 06, 2025 Dr. Zachery Gomez MD Other Provider Active Sta rt: February 06, 2025 Dr. Leyda Cardona MD Attending Provider Active Start: February 06, 2025 Dr. Leyad Cardona MD Other Provider Active St art: February 06, 2025 Dr. Roosevelt Moss MD Other Provider Active Start: February 06, 2025 Team Status: Active Member Role Status Dates Dr. Amado James MD Primary Care Provider Active Start: February 06, 2025 Dr. Eduardo Corona , DO Emergency Provider Active Start: February 06, [...] Start: February 07, 2025 Dr. Eduardo Corona , Emergency Provider Active Start: February 07, 2025 [...] Start: February 08, 2025 Dr. Jose Pool DO Attending Provider Active S tart: February 08, [...] Start: February 09, 2025 Dr. Eduardo Corona DO Emergency Provider Active Start: February 09, 2025 [...] February 09, 2025 Dr. Jose Pool , Attending Provider Active S tart: February 09, 2025 Dr. Jose Pool , DO Other Provider Active Start : February [...] Start: February 09, 2025 Dr. Eduardo Corona DO Emergency Provider Active Start: February 09, 2025 [...] art: February 10, 2025 Dr. Mike Martinez DO Other Provider Active Start: February 10, 2025 [...] t: February 11, 2025 Dr. Jose Pool DO Other Provider Active Start : February 11, [...] Start: February 12, 2025 Dr. Eduardo Corona DO Emergency Provider Active Start: February 12, 2025 Dr. Zachery Gomez MD Admit Provider Active Sta rt: February 12, 2025 Dr. Zachery Gomez MD Other Provider Active Sta rt: February 12, 2025 Dr. Leyda Cardona MD Other Provider Active St art: February 12, 2025 Dr. Roosevelt Moss MD Other Provider [...] t: February 12, 2025 Dr. Thad Cohen DO Other Provider Active St art: February 12, [...] Provider Active S tart: February 12, 2025 Scroll Assembler Relationship Specialty Start Date End Date Amado James MD [address] [facility] [place] [address] PCP - General 04/25/09 Rufina Soares, RENITA.BELLMAN [address] [place] [address] Weigh And Charge Worker Family Medicine 09/03/24 02/07/25 Maciel Busby, SOCK LINING STITCHER.BELLMAN [address] [place], [place] [id number] Weigh And Charge Worker Family Medicine 09/12/24 Reason for Visit (unrecogniz ed section and content) Reason Onset Date Comments Population Health Navigation Outreach 03/16/2022 [place] Care Gap Reason Comments F/U 6 Month Reason Comments F/U 3 Month Reason Onset Date Comments Refill Request 07/14/2022 Reason Onset Date Comments Refill Request 07/15/2022 Reason Comments Medication Problem Reason Onset Date Comments Refill Request 12/14/2022 Reason Onset Date Comments Allied Health Visit 12/23/2022 Medication A dherence Outreach Reason Onset Date Comments Population Health Navigation Outreach 01/25/2023 [place] Care Gap Reason Comments Refill Request Reason Comments Results Reason Onset Date Comments Allied Health Visit 11/26/2023 Medication A dherence Outreach Reason Onset Date Comments Refill Request 12/02/2023 Reason Onset Date Comments Refill Request 01/13/2024 Reason Onset Date Comments Population Health Navigation Outreach 01/18/2024 Nadeen TIJERINA Roster workbench - AWV, Care gaps, HCC gap closure - [place] [facility] Reason Onset Date Comments Refill Request 01/20/2024 Reason Onset Date Comments Refill Request 02/22/2024 Reason Onset Date Comments Population Health Navigation Outreach 02/28/2024 Nadeen [facility] 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 - AWV, Care gaps, HCC gap closure - [place] [facility]SA Reason Comments Appointment Reason Comments Physical [...] Comments Patient Update Blood Sugars Reason Comments Long Term Continued Plan of Care Reason Comments Follow Up 1 week DM Reason Comments Patient Update Reason Onset Date Comments Population Health Navigation Outreach 10/06/2024 Nadeen Currieaprilwendy Erlinda [place] PCSA Reason Comments Clinical Update re-cert for hh Reason Onset Date Comments Refill Request 11/08/2024 Reason Comments POC update Reason Comments Follow Up 2 month follow up Reason Comments Other Sent from [facility] for low HGB[facility]. Pt is trach/vent dependant, A&Ox2-3 per EMS. RT called to the bedside. Pt does daily hemodialysis through R chest wall cath Specialty Diagnoses / Procedures Referred By Thuan jama Referred To Contact Diagnoses Anemia Anemia, unspecified type Chronic renal failure, unspecified CKD stage Procedures ... Sharyn Amaya MD [address] [facility] [address] [address] Phone: tel: fax: [facility] Intensive Care Unit ICU [address] [place] [phone] Phone: tel: Referral ID Status Reason Start Date Expiration Date Visits Re quested Visits Authorized [id number] 1 1 Reason Comments Vascular Access Problem Pt arrives to ED via [facility] from [facility] for a clogged dialysis catheter. Reason Comments Other Patient presents thr ough triage from [facility], staff states that patient needs new dialysis line and needs to have dialysis, last had half a treatment on Wednesday Reason Comments Other Pt [facility] to have dialysis catheter replaced. Procedure completed, here for dialysis before transported back. Pt is trach/vent dependent and oriented via mouthing words and nodding head. PEG tube in place Specialty Diagnoses / Procedures Referred By Thuan jama Referred To Contact Diagnoses ESRD (end stage renal disease) on dialysis (HCC) Procedures .. Griffin Peters MD [address] [place] [address] Phone: tel: fax: [facility] Surgical Trauma Neuro Intensive Care Unit STN ICU T[address] [place] [address] Phone: tel: Referral ID Status Reason Start Date Expiration Date Visits Re quested Visits Authorized [id number] 1 1 INFORMATION SOURCE (unrecogn ized section and content) DATE CREATED AUTHOR 12/19/2024 [facility] DATE CREATED AUTHOR AUTHOR'S ORGANIZ ATION 05/10/2025 [facility] DATE CREATED AUTHOR AUTHOR'S ORGANIZ ATION 07/07/2025 [facility] DATE CREATED AUTHOR AUTHOR'S ORGANIZ ATION 07/27/2025 [facility] Scheduled Active and Recently Administ ered Medications (unrecognized section and content) Medication Order 06/19/2025 06/20/2025 06/21/2025 atorvastatin (Lipitor) tablet 40 mg 40 mg, Per G Tube, Daily, First dose (after last modification) on 06/02/25 at 0900 1404 (Given - Provider: Marion Swartz RN) 0903 (Given - Provider: Marion Swartz RN) 0828 (Given - Provider: Marion Swartz RN) busPIRone (Buspar) tablet 5 mg 5 mg, Per G Tube, 3 times daily, First dose (after last modification) on 06/02/25 at 0900 0951 (Given - Provider: Marion Swartz RN)1404 (Given - Provider: Marion Swartz RN)2012 (Given - Provider: José De Jesus, RYNE) 09 (Given - Provider: Marion Swartz RN)1509 (Given - Provider: Marion Swartz, RN)212 (Given - Provider: Bladimir Mazariegos RN) 0828 (Given - Provider: Marion Swartz RN)1420 (Given - Provider: Marion Swartz RN) carvedilol (Coreg) tablet 3.125 mg 3.125 mg, Per G Tube, 2 times daily with meals, First dose (after last modification) on 06/03/25 at 0800 0951 (Given - Provider: Marion Swartz RN)1711 (Given - Provider: Cha Luna, RN) 0902 (Given - Provider: Marion Swartz RN)1642 (Given - Provider: Marion Swartz RN) 0828 (Given - Provider: Marion Swartz RN)1654 (Given - Provider: Marion Swartz RN) cefepime (Maxipime) 1,000 mg in sodium chloride 0.9 % 50 mL IVPB 1,000 mg, IntraVENous, at 100 mL/hr, Administer over 30 Minutes, Every 12 hours, First dose (after last reorder) on Dalila 06/07/25 at 0515, Dosage or interval has been adjusted per [employer] Renal Dosing policy. Mini-Bag Plus bag, Suspected Indication (Select all that apply): Pneumonia (CAP) 0623 (New Bag - Provider: José De Jesus RN)0731 (Stopped - Provider: Marion Swartz RN)1711 (New Bag - Provider: Cha Luna RN)1758 (Stopped - Provider: Marion Swartz RN) 0507 (New Bag - Provider: José De Jesus, RN)0540 (Stopped - Provider: José De Jesus RN)1642 (New Bag - Provider: Marion Swartz RN)1740 (Stopped - Provider: Marion Swartz RN) 0422 (New Bag - Provider: Bladimir Mazariegos RN)0700 (Stopped - Provider: Marion Swartz RN)1653 [...] RN) 901 (Given - Provider: Marion Swartz RN)2121 [...] Jesus RN - Reason: Order parameters not met)06 (Not Given - Provider: Joés De Jesus RN - Reason: Order parameters [...] Richey RCP)1446 (Given - Provider: Paula Richey RCP)2012 (Given - Provider: Cha Ramon, REFRACTORY REPAIRER) ipratropium-albuterol (Duo-Neb) 0.5-2.5 mg/3 mL nebulizer solution 3 mL 3 mL, Nebulization, 3 times daily, First dose (after last modification) on Wed06/20/25 at 0800 0825 (Given - Provider: Chuyita Gallegos RCP)1603 (Given - Provider: Chuyita Gallegos RCP)2015 (Given - Provider: Maycol Lucas RCP) 0830 (Given - Provider: Chuyita Gallegos RCP)1252 (Given - Provider: Chuyita Gallegos RCP)1999 (Canceled Entry - Provider: Automatic Discharge Provider - Comment: Automatically canceled at discontinue of medication order) miconazole (Micotin) 2 % powder Topical, 2 times daily, First dose on 06/04/25 at 2100, Apply to abdominal skin folds 0952 (Given - Provider: Marion Swartz RN)2012 (Given - Provider: José De Jesus RN) 902 (Given - Provider: Marion Swartz RN)2120 (Given - Provider: Bladimir Mazariegos, RN) 08 (Given - Provider: Marion Swartz RN) midodrine (Proamatine) tablet 10 mg 10 mg, Per G Tube, 3 times daily, First dose (after last modification) on 06/02/25 at 0900 0951 (Given - Provider: Marion Swartz RN)1404 (Given - Provider: Marion Swartz RN)2012 (Given - Provider: José De Jesus RN) 902 (Given - Provider: Marion Swartz RN)1509 (Given - Provider: Marion Swartz RN)2121 (Given - Provider: Bladimir Mazariegos, RYNE) 08 (Given - Provider: Marion Swartz RN)142 (Given - Provider: Marion Swartz RN) minocycline [...] over 2 Minutes, Nightly, First dose on 06/02/25 at 2100, Give only if unable to tolerate po. 2019 (Given - Provider: José De Jesus RN) 2121 (Given - Provider: Bladimir Mazariegos, RYNE) sodium chloride 0.9% (NS) flush 10 mL 10 mL, IntraCATHeter, Every 12 hours, First dose on Dalila 06/14/25 at 2100, Administer to each lumen. Line Care. Use 10 mL or larger syringe. 0952 (Given - Provider: Marion Swartz RN)2013 (Given - Provider: José De Jesus RN) 902 (Given - Provider: Marion Swartz RN)2135 (Given - Provider: Bladimir Mazariegos RN) 827 (Given - Provider: Marion Swartz RN) sodium chloride 3 % hypertonic nebulizer solution 4 mL 4 mL, Nebulization, 2 times daily, First dose (after last modification) on Wed06/13/25 at 2100 0726 (Given - Provider: Paula Richey RCP)2013 (Given - Provider: Cha Ramon, REFRACTORY REPAIRER) 827 (Given - Provider: Chyuita Gallegos RCP)2014 (Given - Provider: Maycol Lucas RCP) 830 (Given - Provider: Chuyita Gallegos RCP) stomahesive in petrolatum (ET Mix) Topical, Every 8 hours scheduled (3 times per day), First dose on Wed06/04/25 at 2200, Apply to sacrum and right med thigh 0623 (Given - Provider: José De Jesus RN)1404 (Given - Provider: Marion Swartz RN)2235 (Given - Provider: José De Jesus RN) 0532 (Given - Provider: José De Jesus RN)1632 (Not Given - Provider: Marion Swartz RN - Reason: Other - Comment: already given)2124 (Given - Provider: Bladimir Mazariegos, RYNE) 0623 (Given - Provider: Bladimir Mazariegos, RYNE)1421 (Not Given - Provider: Marion Swartz RN [...] Swartz RN)2120 (Given - Provider: Bladimir Mazariegos, RYNE)2122 (Given - Provider: Bladimir Mazariegos RN) 142 [...] 2100 2211 (Given - Provider: Nilda Moy, RNYE) 2009 (Given - Provider: Vijaya Villar, RYNE) busPIRone (Buspar) tablet 5 mg 5 mg, Per G Tube, 3 times daily, First dose on Wed07/04/25 at 2100 2211 (Given - Provider: Nilda Moy, RYNE) 0910 (Given - Provider: Neena Kent RN)1539 (Given - Provider: Michael Todd RN)2008 (Given - Provider: Vijaya Villar, RYNE) 0807 (Given - Provider: Darrell Egan, RYNE)1328 (Given - Provider: Darrell Egan, RN) carvedilol (Coreg) tablet 3.125 mg 3.125 mg, Per G Tube, 2 times daily with meals, First dose on Wed07/04/25 at 1850 2313 (Not Given - Provider: Cortez Kumar RN - Reason: Contraindicated) 0909 (Given - Provider: Neena Kent RN)1738 (Given - Provider: Michael Todd RN) 0759 (Given - Provider: Darrell Egan, RYNE)1700 (Canceled Entry - Provider: Automatic Discharge Provider - Comment: Automatically canceled at discontinue of medication order) epoetin jenn-epbx (Retacrit) injection 2,600 Units 2,600 Units, IntraVENous, 3 times weekly (Once per day on Wednesday), First dose on Wed07/06/25 at 0900, Indications: ESRD on Dialysis 945 (Given - Provid er: Carmita Prasad RN) FLUoxetine (PROzac) capsule 20 mg 20 mg, Per G Tube, Daily, First dose on Wed07/05/25 at 0900 0915 (Given - Provider: Neena Kent RN) 0903 (Given - Provider: Darrell Egan, RYNE) insulin glargine (Lantus) injection 25 Units 25 Units, SubCUTAneous, 2 times daily, First dose on Wed07/04/25 at 2100, Do not hold without physician order. 2228 (Given - Provider: Nilda Moy RN) 0956 (Given - Provider: Neena Kent RN - Comment: BS 91)2009 (Given - Provider: Vijaya Villar, RYNE) 0803 (Given - Provider: Darrell Egan, RYNE) Insulin Lispro (Humalog) injection 0-12 Units(Linked Group [...] nutrtition since last blood glucose of 125) 0905 (Not Given - Provider: Neena Kent RN [...] 137) 2003 (Not Given - Provider: Vijaya Villar RN - Reason: Order parameters not met) miconazole (Micotin) 2 % powder Topical, 2 times daily, First dose on Wed07/05/25 at 0015 0651 (Given - Provider: Cortez Kumar RN)0909 (Given - Provider: Neena Kent RN)2010 (Given - Provider: Vijaya Villar, RYNE) 09 (Not Given - Provider: Darrell Egan RN - Reason: Medication not available) midodrine (Proamatine) tablet 10 mg 10 mg, Per G Tube, 3 times daily, First dose on Wed07/04/25 at 2100 2211 (Given - Provider: Nilda Moy RN) 0926 (Given - Provider: Neena Kent, RYNE)1539 (Given - Provider: Michael Todd RN)2009 (Given - Provider: Vijaya Villar RN) 08 (Given - Provider: Darrell Egan, RYNE)1328 (Given - Provider: Darrell Egan, RYNE) mupirocin (Bactroban) 2 % ointment Topical, 3 times daily, First dose on Dalila 07/05/25 at 0930 0925 (Not Given - Provider: Neena Kent RN - Reason: Patient/family refused)1530 (Given - Provider: Michael Todd RN)2009 (Given - Provider: Vijaya Villar RN) 08 [...] 2134 (Given - Provider: Nilda Moy RN) 0905 (Not Given - Provider: Neena Kent RN [...] F (38 C), Starting on Wed07/04/25 at 2057, Administer if oral route cannot be used. Maximum dose of acetaminophen is 4000 mg from all sources in 24 hours. acetaminophen (Tylenol) tablet 650 mg(Linked Group 2) 650 mg, Oral, Every 6 hours PRN, mild pain (1-3), fever, For temp greater than 100.4 F (38 C), Starting on Wed07/04/25 at 2057, Maximum dose of acetaminophen is 4000 mg [...] IntraCATHeter, As needed, line care, Starting on Wed07/05/25 at 0326, For ARTERIAL lumen 0815 (Given [...] BE BASED ON THE PRIMARY CLINICAL RECORDS. [employer] [facility]. provides no warranty or guarantee of the accuracy or completeness of information in this document.
[2025-08-01 08:36] LABS: Hematocrit 21.1 % (37-47); Hemoglobin 6.8 g/dL (12.0-15.0); Mean Corp Hgb Conc 32.2 g/dL (32-36); Mean Corpuscular Volume 85.8 fL (81-99); Mean Platelet Vol. 10.6 fl (6.2-12.0); Platelet Count 238 K/mm3 (150-450); RBC Distribution Width CV 16.6 % (11.6-14.6); RBC Distribution Width SD 52.2 fl (35.1-43.9); Red Blood Count 2.46 M/mm3 (4.2-5.4); White Blood Count 10.4 K/mm3 (4.4-11.0)
[2025-08-01 08:48] LABS: Anion Gap 11 (5-15); BUN 66 mg/dL (4-19); BUN/Creat Ratio 27.3 RATIO (10-20); Calcium,Total 9.7 mg/dL (7.6-11.0); Carbon Dioxide 31.7 mmol/L (21.0-32.0); Chloride 90 mmol/L (98-108); Glucose 199 mg/dL (70-99); Potassium 3.7 mmol/L (3.3-5.1)
== END ==
LOC: OLS.SANC 05:00
PROVIDERS: PCP Family Medicine; Visit Provider Internal Medicine
DX: N18.6 End stage renal disease (principal); J96.01 Acute respiratory failure with hypoxia
CPT/HCPCS: 36415; 80048; 85027

== ENCOUNTER → 2025-08-03 | Outpatient (REF) | payer MEDICARE, MEDICAID, SELFPAY ==
--- OUTSIDE RECORDS SUMMARY | 2025-08-03 04:35 | XMS RPT_ITS | CCD ---
Author Organization [facility] Care Team Providers Care [employer] Crm Developer Name Role Phone Dr. Amado James Primary Care Provider Dr. Cindy Snyder Emergency Provider [phone] Dr. Marva Mckeon Attending Provider [phone] Dr. Amado James Primary Care Provider [phone] Dr. Juancarlos Polanco Attending Provider Dr. Marva Mckeonit Provider [facility] Network[facility]. Durham Other Provider Tono, Dr. Mehta Attending Provider Dr. Zachery Gomez Attending Provider [phone] Zachery Gomez Other Provider [phone] Dr. Harry Stallings Attending Provider Amado James MD Primary Care Provider Dr. Cindy Snyder Referring Provider Dr. Harry Stallings Attending Provider Dr. Zachery Gomez Referring Provider [phone] Zachery Gomez Referring Provider Dr. Amado James Referring Provider Dr. Amado James Primary Care Provider [phone] Dr. Cindy Snyder Emergency Provider Dr. Marva Mckeonit Provider Dr. Marva Mckeon Other Provider Friend, Dr. Mehta Attending Provider Dr. Harry Stallings Other Provider MD Harry Stallings Referring Provider Unavailable Amado James MD Primary Care Provider Amado James MD Primary Care Provider Dr. Amado James Primary Care Provider Dr. Amado James Referring Provider Good LOOP TACKER, LOOP TACKERErlindaC Carmela Attending Provider Amado James MD Primary Care Provider Caroline PROPERTY MANAGEMENT COORDINATOR.BMW SERVICE TECHNICIANRufina Unavailable Campbell PROPERTY MANAGEMENT COORDINATOR.BMW SERVICE TECHNICIAN, Maciel Unavailable AMADO JAMES Primary Care Unavailable [...] Loly MOLINA, Dr. Liu Other Provider [phone] Israel MOLINA, Dr. Quinones Other Provider Gena MOLINA, Dr. Nieves Other Provider Dianna MOLINA, Dr. Moon Other Provider [phone] Tawanda MOLINA, Dr. Nunez Other Provider [phone] Juan Carlos MOLINA, Dr. Roberts Other Provider [phone] Abdullahi MOLINA, Dr. Mills Other Provider [phone] Rashad MOLINA, Dr. Germain Other [facility] Hilton MD, Dr. Ash Other Provider Lea MOLINA, Dr. Orozco Other Provider Francisco MOLINA, Dr. Berger Other Provider Flora MOLINA, Dr. Quintanilla Other Provider Noel CRISTOBAL, Dr. Oneil Other Provider Christin OMLINA, Dr. Mas Other Provider [phone] Estrella [...] MOLINA, Dr. Herbert Avila Other Provider Caroline PROPERTY MANAGEMENT COORDINATOR.BMW SERVICE TECHNICIAN, Rufina Unavailable CHEIKH PROPERTY MANAGEMENT COORDINATOR-BMW SERVICE TECHNICIAN, BISHNU Attending Unavailab AJS Worley MD Attending Unavailable EMERY SAGE MD [...] RAND Attending Unavailable Zachery Gomez Admitting Unavailable Leyda Cardona Consulting Unavailable Ana Laura Hastings Attending Unavailable Amado James Primary Care Unavailable Roosevelt Moss Consulting Unavailable James Whelan Consulting Unavailable Vinayak De [place] Consulting Unavailable Yaw Thopmson Consulting Unavailable Jose Pool Consulting Unavailable Oscar Weinstein Consulting Unavailable Noe Salcido Consulting Unavailable Joni Wood Consulting Unavailable Lizbeth Avery Consulting Unavailab le Dand, Red Consulting Unavailable Neff, Enrique Consulting Unavailable Suhail Rangelin Consulting Unavailable Abdullahi, Lina Consulting Unavailable Aljundi, Lamia Consulting Unavailable Hilton, Nilsa Consulting Unavailable Lea, Ernesto Consulting Unavailable Irukulla, Ab Consulting Unavailable Flora, Dwight Consulting Unavailable Dhesi, Thad Consulting Unavailable Waller, Sujoy Consulting Unavailable [place], Soley[place] Consulting Unavailable Fernstrom, Mike Consulting Unavailable Evin, Jeromy Consulting Unavailable Anthony Dillard Consulting Unavailable Jason, Zachery Consulting Unavailable Leyda Brown Consulting Unavailable Herbert Cardona Consulting Unavailable Anjum Small Consulting Unavailabl Ana Laura Ring Consulting Unavailable Sagar Rendon Consulting Unavailable Oscar Poole Admitting Unavailable Oscar Poole Consulting Unavailable Ana Laura Hastings Attending Unavailable [facility] Unavailable Rupali Kirkpatrick Consulting Unavailable [facility] Unavailable Leyda Erwin Attending Unavailable Leyda Erwin Referring Unavailable Leyda Erwin Attending Unavailable [facility] Unavailable Leyda Erwin Referring Unavailable Zachery Gomez Admitting Unavailable Leyda Cardona Consulting Unavailable [facility] Unavailable Aston Nagy Attending Unavailable AjayRoosevelt peterson Consulting Unavailable James Whelan Consulting Unavailable Vinayak De [place] Consulting Unavailable Yaw Thompson Consulting Unavailable Jose Pool Consulting Unavailable Oscar Weinstein Consulting Unavailable Noe Salcido Consulting Unavailable Israel, Joni Consulting Unavailable Lizbeth Avery Consulting Unavailab le Dand, Red Consulting Unavailable Neff, Enrique Consulting Unavailable Juan Carlos Armando Consulting Unavailable Abdullahi, Lina Consulting Unavailable Aljundi, Lamia Consulting Unavailable Hilton, Nilsa Consulting Unavailable Lea, Ernesto Consulting Unavailable Irukulla, Ab Consulting Unavailable Flora, Dwight Consulting Unavailable Dhesi, Thad Consulting Unavailable Waller, Sujoy Consulting Unavailable [place], [place] Consulting Unavailable Fernstrom, Mike Consulting Unavailable Evin, Jeromy Consulting Unavailable Anthony Dillard Consulting Unavailable Jason Zachery Consulting Unavailable Leyda Brown Consulting Unavailable Herbert Cardona Consulting Unavailable Herbert Cardona Attending Unavailable Ana Laura Hastings Attending Unavailable Anjum Small Consulting Unavailabl e Koram, Ana Laura Radha Consulting Unavailable Oscar Poole Consulting Unavailable Oscar Poole Admitting Unavailable Rupali Kirkpatrick Attending Unavailable Elderbrock, Amado Primary Care Unavailable Rupali Kirkpatrick Consulting Unavailable Ann Reavesr Attending Unavailable Elderbrock, Amado Primary Care Unavailable Elderbrock, Amado Referring Unavailable Sagar Rendon Consulting Unavailable Koram, Ana Laura Radha Referring Unavailable Tono, Tyson Attending Unavailable Jose Pool Attending Unavailable ArmeniterJanusz Attending Unavailable Demiter, Janusz Referring Unavailable Elderbrock, Amado Primary Care Unavailable Miguel Naik Attending Unavailable Miguel Naik Referring Unavailable Elderbrock, Amado Primary Care Unavailable Elderbrock, Amado Primary Care Unavailable MukkSharyn Powell Attending Unavail able Elderbrock, Amado Primary Care Unavailable Renékkvenkatesh SHEPPARD, Sharyn Attending Unavail able Zachery Gomez Referring Unavailable Zachery Gomez Attending Unavailable Leyda Cardona Attending Unavailable Sagar Rendon Attending Unavailable Herbert Cardona Referring Unavailable Koram, Ana Laura Radha Attending Unavailable Koram, Ana Laura Radha Consulting Unavailable Elderbrock, Amado Primary Care Unavailable Leyda Erwin Referring Unavailable Leyda Erwin Attending Unavailable Ann Reavesr Attending Unavailable Demiter, Janusz Referring Unavailable Elderbrock, Amado Primary Care Unavailable Elderbrock, Amado Primary Care Unavailable Leyda Erwin Attending Unavailable Leyda Erwin Referring Unavailable MukkSharyn Powell Attending Unavail able Elderbrock, Amado Primary Care Unavailable Sharyn Vaughn Referring Unavail able Oscar Poole Attending Unavailable Tiffany David Attending Unavailable Elderbrock, Amado Primary Care Unavailable Lea Loza Attending Unavailable Elderbrock, Amado Primary Care Unavailable Elderbrock, Amado Referring Unavailable Eduardo Figueroa Attending Unavailable Rupali Kirkpatrick Referring Unavailable Elderbrock, Amado Primary Care Unavailable Harry Stallings Attending Unavailable Elderbrock, Amado Primary Care Unavailable Leyda Brown Referring Unavailable Leyda Brown Attending Unavailable Harry Stallings Attending Unavailable Papito Gilbert Attending Unavailabl e Elderbrock, Amado Primary Care Unavailable Sharyn Vaughn Attending Unavail able Alexis Servin Attending Unavailable Elderbrock, Amado Primary Care Unavailable Allergies Allergy Classification Reported Allergen(s) Allergy Type Date of Onset Reaction(s) Facility (5 sources) Angiotensin-conv erting enzyme inhibitor agent; Translations: [DIANA INHIBITORS] Propensity to adverse reactions 07-17-2005 [facility] Work Phone: (20 sources) Neomycin; Translations: [NEOMYCIN] Drug Allergy 07-17-2005 [facility] Work Phone: (20 sources) Angiotensin-conv erting enzyme inhibitor agent Propensity to adverse reactions 07-17-2005 [facility] Work Phone: Medications Current Medications [...] Comment on above: Take 1 capsule by [facility] once daily. dapagliflozin 10 mg oral tablet (20 sources) Sodium-Glucose Cotransporter 2 Inhibitor Start: 022 End: 024 take 1 tablet by mouth once daily [...] 70 Units subc utaneously every morning. Insulin [place], Disposable, (RELION PEN NEEDLES) 32 x 5/32 " ndle (20 sources) Start: 5 Insulin [place], Disposable, (RELION PEN NEEDLES) 32 x 5/32 [...] 03, 2022 10:30am 20 ml albumin human, halfway 250 mg/ml injection (8 sources) Human Serum [...] Discontinued 3 ML INHALATION EVERY 4 HOURS February 26, 2022 12:00am June 03, 2022 [...] days. 20 tablet 0 05/06/2024 05/16/2024 Active Zcbxz-Ewmx-Dpekx-Collag-Mv-M in (Champ (With Collagen)) 7-7-1.5 gram Powder In Packet (3 sources) Start: 07-18-2024 End: 08-19-2024 Rfkfy-Yxra-Agcpg-Collag-Mv-M in (Champ (With Collagen)) 7-7-1.5 gram Powder [...] Take 1 tablet by carlo once daily. docusate sodium 50 mg / sennosides, halfway 8.6 mg oral tablet (3 sources) Start: [...] 06-21-2026 Start: 04-10-2024 take 1 capsule by [facility] once daily FLUoxetine (PROZAC) 10 mg capsule [...] IM ONE TIME as needed for Hypoglycemia 0 February 26, 2022 12:00am June 03, [...] complication, with long-term current use of insulin (FORMERLY [facility]) INJECT 15 UNITS SUBCUTANEOUSLY THREE TIMES DAILY [...] disease, without long-term current use of insulin (FORMER[facility]) , Controlled type 2 diabetes mellitus without complication, with long-term current use of insulin (FORMER[facility]) INJECT 25 UNITS SUBCUTANEOUSLY THREE TIMES DAILY WITH MEALS DIRECTED 30 Each 3 06/06/2024 09/26/2024 Discontinued Start: 02-26-2022 End: 07-15-2022 insulin lispro (HUMALOG KWIK PEN INSULIN) 100 unit/mL Indications: Controlled type 2 diabetes mellitus without complication, with long-term current use of insulin (FORMER[facility]) INJECT 20 UNITS SUBCUTANEOUSLY THREE TIMES DAILY [...] Tube, 3 times daily, First dose on 07/04/25 at 2100 Start: 06-21-2025 End: 07-21-2025 midodrine [...] Comment on above: Take 1 tablet by [facility] once daily. Take 40 mg by mouth twice daily. polyethylene glycol 3350 86123 mg powder for oral solution (4 sources) [...] 1 tablet by carlo th once daily. (2 sources) End: 06-21-2025 (4 [...] Coronary atherosclerosis; Translations: [Atherosclerotic heart disease of [place] coronary artery without angina pectoris] Onset: 5 Chronic Comment on above: Transferred to [facility] 09/2013 for intervention Deficiency and other anemia [...] sources) Long-term current use of insulin; Translations: [termination clerk (current) use of insulin] Onset: 10-15-2023 10-15-2023 Episodic Other aftercare (1 source) termination clerk (current) use of insulin; Translations: [Type 2 [...] Range Facility Basic Metabolic Profile (BMP )on 08-01-2025 BUN/CRE 27.3 RATIO High 10-20 [facility] Comment on above: Order Comment: 405-2 Performed By: #### L 500.2500, L100.0500 ####[facility] [address] [place], [address] Calcium [Mass/Vol] 9.7 mg/dL Normal 7.6-11.0 [facility] Comment on above: Order Comment: 405-2 Performed By: #### L 500.2500, L100.0500 ####[facility] [address] [place], [address] Chloride [Moles/Vol] 90 mmol/L Low 98-108 [facility] Comment on above: Order Comment: 405-2 Performed By: #### L 500.2500, L100.0500 ####[facility] [address] [place], [address] CO2 [Moles/Vol] 31.7 mmol/L Normal 21.0-32.0 [facility] Comment on above: Order Comment: 405-2 Performed By: #### L 500.2500, L100.0500 ####[facility] [address] [place], [address] Creatinine [Mass/Vol] 2.40 mg/dL High 0.70-1.20 [facility] Comment on above: Order Comment: 405-2 Performed By: #### L 500.2500, L100.0500 ####[facility] [address] [place], [address] GAP 11 Normal 5-15 [facility] Comment on above: Order Comment: 405-2 Performed By: #### L 500.2500, L100.0500 ####[facility] [address] [place], [address] GFR/1.73 sq M.predicted among non-blacks MDRD (S/P/Bld) [Vol rate/Area] 20 mL/min/{1.73_m2} Low >60 [facility] Comment on above: Order Comment: 405-2 Result Comment: mL/m in/1.73m2 CKD-EPI Creatinine Equation (2020) Performed By: #### L 500.2500, L100.0500 ####[facility] [address] [place], [address] Glucose [Mass/Vol] 199 mg/dL High 70-99 [facility] Comment on above: Order Comment: 405-2 Performed By: #### L 500.2500, L100.0500 ####[facility] [address] [place], [address] Potassium [Moles/Vol] 3.7 mmol/L Normal 3.3-5.1 [facility] Comment on above: Order Comment: 405-2 Performed By: #### L 500.2500, L100.0500 ####[facility] [address] [place], [address] Sodium [Moles/Vol] 133 mmol/L Normal 133-145 [facility] Comment on above: Order Comment: 405-2 Performed By: #### L 500.2500, L100.0500 ####[facility] [address] [place], [address] Urea nitrogen [Mass/Vol] 66 mg/dL High 4-19 [facility] Comment on above: Order Comment: 405-2 Performed By: #### L 500.2500, L100.0500 ####[facility] [address] [place], [address] CBC-Complete Blood Cnt No Di ffon 08-01-2025 Erythrocyte distribution width (RBC) [Ratio] 16.6 % High 11.6-14.6 [facility] Comment on above: Order Comment: 405-2 Performed By: #### L 500.2500, L100.0500 ####[facility] [address] [place], [address] Hematocrit (Bld) [Volume fraction] 21.1 % Low 37-47 [facility] Comment on above: Order Comment: 405-2 Performed By: #### L 500.2500, L100.0500 ####[facility] [address] [place], [address] Hemoglobin (Bld) [Mass/Vol] 6.8 g/dL Low 12.0-15.0 [facility] Comment on above: Order Comment: 405-2 Performed By: #### L 500.2500, L100.0500 ####[facility] [address] [place], [address] MCH (RBC) [Entitic mass] 27.6 pg Normal 27.0-32.0 [facility] Comment on above: Order Comment: 405-2 Performed By: #### L 500.2500, L100.0500 ####[facility] [address] [place], [address] MCHC (RBC) [Mass/Vol] 32.2 g/dL Normal 32-36 [facility] Comment on above: Order Comment: 405-2 Performed By: #### L 500.2500, L100.0500 ####[facility] [address] [place], [address] MCV (RBC) [Entitic vol] 85.8 fL Normal 81-99 [facility] Comment on above: Order Comment: 405-2 Performed By: #### L 500.2500, L100.0500 ####[facility] [address] [place], [address] Platelet mean volume (Bld) [Entitic vol] 10.6 fL Normal 6.2-12.0 [facility] Comment on above: Order Comment: 405-2 Performed By: #### L 500.2500, L100.0500 ####[facility] [address] [place], [address] Platelets (Bld) [#/Vol] 238 10*3/uL Normal 150-450 [facility] Comment on above: Order Comment: 405-2 Performed By: #### L 500.2500, L100.0500 ####[facility] [address] [place], [address] RBC (Bld) [#/Vol] 2.46 10*6/uL Low 4.2-5.4 [facility] Comment on above: Order Comment: 405-2 Performed By: #### L 500.2500, L100.0500 ####[facility] [address] [place], [address] RDW SD 52.2 fl High 35.1-43.9 [facility] Comment on above: Order Comment: 405-2 Performed By: #### L 500.2500, L100.0500 ####[facility] [address] [place], [address] WBC (Bld) [#/Vol] 10.4 10*3/uL Normal 4.4-11.0 [facility] Comment on above: Order Comment: 405-2 Performed By: #### L 500.2500, L100.0500 ####[facility] [address] [place], [address] Basic Metabolic Profile (BMP )on 07-16-2025 BUN/CRE 21.2 RATIO High -20 [facility] Comment on above: Order Comment: 405.2 Performed By: #### L 500.2500, L100.0500 ####[facility] [address] [place], [address] Calcium [Mass/Vol] 10.0 mg/dL Normal 7.6-11.0 [facility] Comment on above: Order Comment: 405.2 Performed By: #### L 500.2500, L100.0500 ####[facility] [address] [place], [address] Chloride [Moles/Vol] 89 mmol/L Low 98-108 [facility] Comment on above: Order Comment: 405.2 Performed By: #### L 500.2500, L100.0500 ####[facility] [address] [place], [address] CO2 [Moles/Vol] 30.7 mmol/L Normal 21.0-32.0 [facility] Comment on above: Order Comment: 405.2 Performed By: #### L 500.2500, L100.0500 ####[facility] [address] [place], [address] Creatinine [Mass/Vol] 3.85 mg/dL High 0.70-1.20 [facility] Comment on above: Order Comment: 405.2 Performed By: #### L 500.2500, L100.0500 ####[facility] [address] [place], [address] GAP 13 Normal 5-15 [facility] Comment on above: Order Comment: 405.2 Performed By: #### L 500.2500, L100.0500 ####[facility] [address] [place], [address] GFR/1.73 sq M.predicted among non-blacks MDRD (S/P/Bld) [Vol rate/Area] 12 mL/min/{1.73_m2} Low >60 [facility] Comment on above: Order Comment: 405.2 Result Comment: mL/m in/1.73m2 CKD-EPI Creatinine Equation (2020) Performed By: #### L 500.2500, L100.0500 ####[facility] [address] [place], [address] Glucose [Mass/Vol] 234 mg/dL High 70-99 [facility] Comment on above: Order Comment: 405.2 Performed By: #### L 500.2500, L100.0500 ####[facility] [address] [place], [address] Potassium [Moles/Vol] 3.8 mmol/L Normal 3.3-5.1 [facility] Comment on above: Order Comment: 405.2 Performed By: #### L 500.2500, L100.0500 ####[facility] [address] [place], [address] Sodium [Moles/Vol] 133 mmol/L Normal 133-145 [facility] Comment on above: Order Comment: 405.2 Performed By: #### L 500.2500, L100.0500 ####[facility] [address] [place], [address] Urea nitrogen [Mass/Vol] 82 mg/dL High 4-19 [facility] Comment on above: Order Comment: 405.2 Performed By: #### L 500.2500, L100.0500 ####[facility] [address] [place], [address] CBC-Complete Blood Cnt No Di ffon 07-16-2025 Erythrocyte distribution width (RBC) [Ratio] 17.5 % High 11.6-14.6 [facility] Comment on above: Order Comment: 405.2 Performed By: #### L 500.2500, L100.0500 ####[facility] [address] [place], [address] Hematocrit (Bld) [Volume fraction] 24.6 % Low 37-47 [facility] Comment on above: Order Comment: 405.2 Performed By: #### L 500.2500, L100.0500 ####[facility] [address], [address] Hemoglobin (Bld) [Mass/Vol] 7.7 g/dL Low 12.0-15.0 [facility] Comment on above: Order Comment: 405.2 Performed By: #### L 500.2500, L100.0500 ####[facility] [address], [address] MCH (RBC) [Entitic mass] 26.9 pg Low 27.0-32.0 [facility] Comment on above: Order Comment: 405.2 Performed By: #### L 500.2500, L100.0500 ####[facility] [address] [place], [address] MCHC (RBC) [Mass/Vol] 31.3 g/dL Low 32-36 [facility] Comment on above: Order Comment: 405.2 Performed By: #### L 500.2500, L100.0500 ####[facility] [address] [place], [address] MCV (RBC) [Entitic vol] 86.0 fL Normal 81-99 [facility] Comment on above: Order Comment: 405.2 Performed By: #### L 500.2500, L100.0500 ####[facility] [address] [place], [address] Platelet mean volume (Bld) [Entitic vol] 10.1 fL Normal 6.2-12.0 [facility] Comment on above: Order Comment: 405.2 Performed By: #### L 500.2500, L100.0500 ####[facility] [address] [place], [address] Platelets (Bld) [#/Vol] 234 10*3/uL Normal 150-450 [facility] Comment on above: Order Comment: 405.2 Performed By: #### L 500.2500, L100.0500 ####[facility] [address] [place], [address] RBC (Bld) [#/Vol] 2.86 10*6/uL Low 4.2-5.4 [facility] Comment on above: Order Comment: 405.2 Performed By: #### L 500.2500, L100.0500 ####[facility] [address] [place], [address] RDW SD 55.4 fl High 35.1-43.9 [facility] Comment on above: Order Comment: 405.2 Performed By: #### L 500.2500, L100.0500 ####[facility] [address] [place], [address] WBC (Bld) [#/Vol] 7.2 10*3/uL Normal 4.4-11.0 [facility] Comment on above: Order Comment: 405.2 Performed By: #### L 500.2500, L100.0500 ####[facility] [address] [place], [address] [id number] 07-06-2025 [id number] Normal [facility] [id number] Normal [facility] CBC (HEMOGRAM)on 07-06-2025 Erythrocyte distribution width (RBC) [Ratio] 19.4 % High 11.5-15.0 [facility] Comment on above: Performed By: #### L AB294 ####Pharmacy Informatics Manager: VASHTI BAILEY ([id number])[facility] ([address] Hematocrit (Bld) [Volume fraction] 24.3 % Low 35.0-47.0 [facility] Comment on above: Performed By: #### L AB294 ####Pharmacy Informatics Manager: VASHTI BAILEY ([id number])[facility] ([facility])[address] [place] [address] Hemoglobin (Bld) [Mass/Vol] 7.7 g/dL Low 11.7-16.0 [facility] Comment on above: Performed By: #### L AB294 ####Pharmacy Informatics Manager: VASHTI BAILEY ([id number])[facility])[address] [place] [address] MCH (RBC) [Entitic mass] 27.5 pg Normal 26.0-34.0 [facility] Comment on above: Performed By: #### L AB294 ####Pharmacy Informatics Manager: VASHTI BAILEY ([id number])[facility])[address] [place] [address] MCHC 31.7 % Normal 30.5-36.0 [facility] Comment on above: Performed By: #### L AB294 ####Pharmacy Informatics Manager: VASHTI BAILEY ([id number])[facility] ([facility])[address] [place] [address] MCV (RBC) [Entitic vol] 86.8 fL Normal 77.0-99.0 [facility] Comment on above: Performed By: #### L AB294 ####Pharmacy Informatics Manager: VASHTI BAILEY ([id number])[facility])[address] [place] [address] Platelet mean volume (Bld) [Entitic vol] 10.0 fL Normal 9.0-12.7 [facility] Comment on above: Performed By: #### L AB294 ####Pharmacy Informatics Manager: VASHTI BAILEY ([id number])[facility])[address] [place] [address] Platelets (Bld) [#/Vol] 190 10*3/uL Normal 140-440 [facility] Comment on above: Performed By: #### L AB294 ####Pharmacy Informatics Manager: VASHTI BAIELY ([id number])[facility] ([facility])[address] [place] [address] RBC (Bld) [#/Vol] 2.80 10*6/uL Low 3.80-5.20 [facility] Comment on above: Performed By: #### L AB294 ####Pharmacy Informatics Manager: VASHTI BAILEY ([id number])[facility] SYSTEM ([facility])[address] [place] [address] WBC (Bld) [#/Vol] 7.8 10*3/uL Normal 3.6-10.7 [facility] Comment on above: Performed By: #### L [id number] ####Pharmacy Informatics Manager: VASHTI BAILEY ([phone])[facility])[address] [place] [address] CBC panel Auto (Bld)on 07-06 Erythrocyte distribution width (RBC) [Ratio] 19.4 % High 11.5 - 15.0 % [facility] Hematocrit (Bld) [Volume fraction] 24.3 % Low 35.0 - 47.0 % [facility] Hemoglobin (Bld) [Mass/Vol] 7.7 g/dL Low 11.7 - 16.0 g/dL [facility] Interpretation and review of laboratory results Abnormal [facility] MCH (RBC) [Entitic mass] 27.5 pg 26.0 - 34.0 pg [facility] MCHC (RBC) [Mass/Vol] 31.7 % 30.5 - 36.0 % [facility] MCV (RBC) [Entitic vol] 86.8 fL 77.0 - 99.0 fL [facility] Platelet mean volume (Bld) [Entitic vol] 10 fL 9.0 - 12.7 fL [facility] Platelets (Bld) [#/Vol] 190 10*3/uL 140 - 440 10*3/uL [facility] RBC (Bld) [#/Vol] 2.8 10*6/uL Low 3.80 - 5.2 0 10*6/uL [facility] WBC (Bld) [#/Vol] 7.8 10*3/uL 3.6 - 10.7 10*3/uL [facility] Laboratory - Chemistry and C hemistry - challengeOrdered By: Holly Brown on 07-06-2025 Albumin [Mass/Vol] 2.6 g/dL Low 3.4 - 4.8 g/dL [facility] Anion gap [Moles/Vol] 10 mmol/L 3 - 13 mmol/L [facility] Calcium [Mass/Vol] 9.3 mg/dL 8.8 - 10. 0 mg/dL [facility] Chloride [Moles/Vol] 99 mmol/L 98 - 10 7 mmol/L [facility] CO2 [Moles/Vol] 27 mmol/L 23 - 31 mmol/L [facility] Creatinine [Mass/Vol] 3.36 mg/dL High 0.57 - 1.11 mg/dL [facility] GFR/1.73 sq M.predicted (S/P/Bld) [Vol rate/Area] 13.6 mL/min Low - PINF [facility] Comment on above: Calculation based on the Chronic Kidney Disease Epidemiology Collaboration (CKD-EPI) equation refit without adjustment for race Glucose [Mass/Vol] 89 mg/dL 82 - 115 mg/dL [facility] Phosphate [Mass/Vol] 3.3 mg/dL 2.3 - 4 .7 mg/dL [facility] Potassium [Moles/Vol] 4 mmol/L 3.5 - 5.1 mmol/L [facility] Comment on above: Plasma potassium andrae ues may be up to 0.5 mmol/L lower than serum values. Sodium [Moles/Vol] 136 mmol/L 136 - 145 mmol/L [facility] Urea nitrogen [Mass/Vol] 64 mg/dL High 9 - 23 mg/dL [facility] No Panel InformationOrdered By: Holly Brown on 07-06-2025 Interpretation and review of laboratory results Abnormal [facility] Nursing Noteon 07-06-2025 Nursing Note Normal [facility] Nursing Note Pt is confused at baseline , pt is from a SNF pt has son who cares for her as well. Normal [facility] Nursing Note Normal [facility] Progress Noteon 07-06-2025 Progress Note Normal [facility] Progress Note Normal [facility] RENAL FUNCTION PANELon 07-06 Albumin [Mass/Vol] 2.6 g/dL Low 3.4-4.8 [facility] Comment on above: Performed By: #### L [id number] ####Pharmacy Informatics Manager: VASHTI BAILEY ([phone])[facility] ([facility])[address] [place] [address] Anion gap [Moles/Vol] 10 mmol/L Normal 3-13 [facility] Comment on above: Performed By: #### L [id number] ####Pharmacy Informatics Manager: VASHTI BAILEY ([phone])[facility] ([facility])[address] [place] [address] Calcium [Mass/Vol] 9.3 mg/dL Normal 8.8-10.0 [facility] Comment on above: Performed By: #### L [id number] ####Pharmacy Informatics Manager: VASHTI BAILEY ([phone])[facility] ([facility])[address] [place] [address] Chloride [Moles/Vol] 99 mmol/L Normal 98-107 [facility] Comment on above: Performed By: #### L [id number] ####Pharmacy Informatics Manager: VASHTI BAILEY ([phone])[facility] [place] [address] CO2 [Moles/Vol] 27 mmol/L Normal 23-31 [facility] Comment on above: Performed By: #### L [id number] ####Pharmacy Informatics Manager: VASHTI BAILEY ([phone])[facility] ([facility])[address] [place] [address] Creatinine [Mass/Vol] 3.36 mg/dL High 0.57-1.11 [facility] Comment on above: Performed By: #### L [id number] ####Pharmacy Informatics Manager: VASHTI BAILEY ([phone])[facility] ([facility])[address] [place] [address] [place] GLOMERULAR FILTRATION RATE ML/MIN/1.73 SQ M.PREDICTED 13.6 mL/min/1.73m*2 Low >60.0 [facility] Comment on above: Result Comment: Calc ulation based on the Chronic Kidney Disease Epidemiology Collaboration (CKD-EPI) equation refit without adjustment for race Performed By: #### L [id number] ####Pharmacy Informatics Manager: VASHTI BAILEY ([phone])[facility] ([facility])[address] [place] [address] [place] Glucose [Mass/Vol] 89 mg/dL Normal 82-115 [facility] Comment on above: Performed By: #### L [id number] ####Pharmacy Informatics Manager: VASHTI BAILEY ([phone])[facility] ([facility])[address] [place] [address] [place] Phosphate [Mass/Vol] 3.3 mg/dL Normal 2.3-4.7 [facility] Comment on above: Performed By: #### L [id number] ####Pharmacy Informatics Manager: VASHTI BAILEY ([phone])[facility] ([facility])[address] [place] [address] Potassium [Moles/Vol] 4.0 mmol/L Normal 3.5-5.1 [facility] Comment on above: Result Comment: [facility] potassium values may be up to 0.5 mmol/L lower than serum values. Performed By: #### L [id number] ####Pharmacy Informatics Manager: VASHTI BAILEY ([phone])[facility] ([facility])[address] [place] [address] [place] Sodium [Moles/Vol] 136 mmol/L Normal 136-145 [facility] Comment on above: Performed By: #### L [id number] ####Pharmacy Informatics Manager: VASHTI BAILEY ([phone])[facility] ([facility])[address] [place] [address] [place] Urea nitrogen [Mass/Vol] 64 mg/dL High 9-23 [facility] Comment on above: Performed By: #### L [id number] ####Pharmacy Informatics Manager: VASHTI BAILEY ([phone])[facility] ([facility])[address] [place] [address] [place] XR CHEST 1 VIEWon 07-06-2025 XR CHEST 1 VIEW Normal [facility] XR Chest Single viewon 07-06 Moderate-sized bilateral pleural effusions. Right-sided pleural effusion is increased in size compared to 07/03/2025. Report Dictated on Electronically Signed By: Juancarlos Oneal MD Electronically Signed Date/Time: 07/06/2025 2:50 PM EDT [facility] Patient Name: ROSA MYERS : [...] tunneled dialysis catheter in unchanged position. OTHER: [facility] Lillian Oneal MD - 07/06/2025 [...] Electronically Signed Date/Time: 07/06/2025 2:50 PM EDT [facility] Radiology Study observation (narrative) [facility]th XR Chest Single viewOrdered By: Lillian Nicolasaguanaco on 07-06-2025 [facility] Work Phone: [phone] [id number] Normal [facility] [id number] Normal [facility] C. DIFFICILE BY PCR WITH REF ALYSSA TO EIAon 07-05-2025 C. DIFFICILE BY PCR WITH REFLEX TO EIA Normal [facility] Comment on above: Performed By: #### L [id number], [id number] ####Pharmacy Informatics Manager: VASHTI BAILEY ([phone])[facility] ([facility])[address] [place] [address] C. difficile toxin A+B tcdA+ tcdB genes PATEL+probe Ql (Stl)Ordered By: Nithya Carrasquillo on 07-05-2025 C difficile Toxins A+B, EIA Negative Negative [facility] Interpretation and review of laboratory results Normal [facility] Results indicate colonization with C. Difficile. Correlate with clinical data and/or consider other causes for symptoms. Methodology: Enzyme Immunoassay [facility] C. difficile toxin genes PATEL +probe Ql (Stl)on 07-05-2025 C. difficile toxin B tcdB gene PATEL+probe Ql (Stl) Detected Abnormal Not Detected [facility] Interpretation and review of laboratory results Abnormal [facility] This test screens fo r possible C. difficile infection. Additional testing is required and has been ordered by Laboratory. See C. difficile Toxins EIA for final results. Additional charges apply. Methodology: Real-time PCR [facility] CBC W Auto Differential pane l (Bld)on 07-05-2025 Basophils (Bld) [#/Vol] 0.1 10*3/uL 0.0 - 0.2 10*3/uL [facility] Basophils/100 WBC (Bld) 0.7 % 0.0 - 2.0 % [facility] Eosinophils (Bld) [#/Vol] 0.2 10*3/uL 0.0 - 0.5 10*3/uL [facility] Eosinophils/100 WBC (Bld) 3.1 % 0.0 - 6.0 % [facility] Erythrocyte distribution width (RBC) [Ratio] 19.6 % High 11.5 - 15.0 % [facility] Hematocrit (Bld) [Volume fraction] 23.4 % Low 35.0 - 47.0 % [facility] Hemoglobin (Bld) [Mass/Vol] 7.4 g/dL Low 11.7 - 16.0 g/dL [facility] Immature granulocytes (Bld) [#/Vol] 0.1 10*3/uL High NINF - 0.1 10*3/uL [facility] Immature granulocytes/100 WBC (Bld) 0.7 % 0.0 - 2.0 % [facility] Interpretation and review of laboratory results Abnormal [facility] Lymphocytes (Bld) [#/Vol] 0.9 10*3/uL Low 1.0 - 4.3 10*3/uL [facility] Lymphocytes/100 WBC (Bld) 13.7 % Low 15.0 - 45.0 % [facility] MCH (RBC) [Entitic mass] 27.1 pg 26.0 - 34.0 pg [facility] MCHC (RBC) [Mass/Vol] 31.6 % 30.5 - 36.0 % [facility] MCV (RBC) [Entitic vol] 85.7 fL 77.0 - 99.0 fL [facility] Monocytes (Bld) [#/Vol] 0.8 10*3/uL 0.0 - 0.9 10*3/uL [facility] Monocytes/100 WBC (Bld) 11.9 % 5.0 - 13.0 % [facility] Neutrophils (Bld) [#/Vol] 4.7 10*3/uL 1.8 - 7.5 10*3/uL [facility] Neutrophils/100 WBC (Bld) 69.9 % 38.0 - 82.0 % [facility] Nucleated RBC/100 WBC (Bld) [Ratio] 0 % [facility] [employer] Platelet mean volume (Bld) [Entitic vol] 10.3 fL 9.0 - 12.7 fL [facility] Platelets (Bld) [#/Vol] 179 10*3/uL 140 - 440 10*3/uL [facility] RBC (Bld) [#/Vol] 2.73 10*6/uL Low 3.80 - 5.2 0 10*6/uL [facility] WBC (Bld) [#/Vol] 6.8 10*3/uL 3.6 - 10.7 10*3/uL [facility] CBC WITH AUTO DIFFERENTIALon 07-05-2025 Basophils (Bld) [#/Vol] 0.1 10*3/uL Normal 0.0-0.2 [facility] Comment on above: Performed By: #### L [id number] ####Pharmacy Informatics Manager: VASHTI BAILEY ([phone])[facility] ([facility])[address] [place] [address] Basophils/100 WBC (Bld) 0.7 % Normal 0.0-2.0 [facility] Comment on above: Performed By: #### L [id number] ####Pharmacy Informatics Manager: VASHTI BAILEY ([phone])[facility])[address] [place] [address] Eosinophils (Bld) [#/Vol] 0.2 10*3/uL Normal 0.0-0.5 [facility] Comment on above: Performed By: #### L [id number] ####Pharmacy Informatics Manager: VASHTI BAILEY ([phone])[facility] ([facility])[address] [place] [address] Eosinophils/100 WBC (Bld) 3.1 % Normal 0.0-6.0 [facility] Comment on above: Performed By: #### L [id number] ####Pharmacy Informatics Manager: VASHTI BAILEY ([phone])[facility])[address] [place] [address] Erythrocyte distribution width (RBC) [Ratio] 19.6 % High 11.5-15.0 [facility] Comment on above: Performed By: #### L [id number] ####Pharmacy Informatics Manager: VASHTI BAILEY ([phone])[facility] ([facility])[address] [place] [address] Hematocrit (Bld) [Volume fraction] 23.4 % Low 35.0-47.0 [facility] Comment on above: Performed By: #### L [id number] ####Pharmacy Informatics Manager: VASHTI BAILEY ([phone])[facility])[address] [place] [address] Hemoglobin (Bld) [Mass/Vol] 7.4 g/dL Low 11.7-16.0 [facility] Comment on above: Performed By: #### L [id number] ####Pharmacy Informatics Manager: VASHTI BAILEY ([phone])[facility])[address] [place] [address] IMMATURE GRANS % 0.7 % Normal 0.0-2.0 [facility] Comment on above: Performed By: #### L [id number] ####Pharmacy Informatics Manager: VASHTI BAILEY ([phone])[address] IMMATURE GRANS ABSOLUTE 0.1 10*3/uL High <0.1 [facility] Comment on above: Performed By: #### L [id number] ####Pharmacy Informatics Manager: VASHTI BAILEY ([phone])[address] Lymphocytes (Bld) [#/Vol] 0.9 10*3/uL Low 1.0-4.3 [facility] Comment on above: Performed By: #### L [id number] ####Pharmacy Informatics Manager: VASHTI BAILEY ([phone])[address] Lymphocytes/100 WBC (Bld) 13.7 % Low 15.0-45.0 [facility] Comment on above: Performed By: #### L [id number] ####Pharmacy Informatics Manager: VASHTI BAILEY ([phone])[address] MCH (RBC) [Entitic mass] 27.1 pg Normal 26.0-34.0 [facility] Comment on above: Performed By: #### L [id number] ####Pharmacy Informatics Manager: VASHTI BAILEY ([phone])[facility])[address] [place] [address] MCHC 31.6 % Normal 30.5-36.0 [facility] Comment on above: Performed By: #### L [id number] ####Pharmacy Informatics Manager: VASHTI BAILEY ([phone])[facility] ([facility])[address] [place] [address] MCV (RBC) [Entitic vol] 85.7 fL Normal 77.0-99.0 [facility] Comment on above: Performed By: #### L [id number] ####Pharmacy Informatics Manager: VASHTI BAILEY ([phone])[facility] ([facility])[address] [place] [address] Monocytes (Bld) [#/Vol] 0.8 10*3/uL Normal 0.0-0.9 [facility] Comment on above: Performed By: #### L [id number] ####Pharmacy Informatics Manager: VASHTI BAILEY ([phone])[facility] ([facility])[address] [place] [address] Monocytes/100 WBC (Bld) 11.9 % Normal 5.0-13.0 [facility] Comment on above: Performed By: #### L [id number] ####Pharmacy Informatics Manager: VASHTI BAILEY ([phone])[facility] ([facility])[address] [place] [address] NEUTROPHILS ABSOLUTE 4.7 10*3/uL Normal 1.8-7.5 [facility] Comment on above: Performed By: #### L [id number] ####Pharmacy Informatics Manager: VASHTI BAILEY ([phone])[facility] ([facility])[address] [place] [address] Neutrophils/100 WBC (Bld) 69.9 % Normal 38.0-82.0 [facility] Comment on above: Performed By: #### L [id number] ####Pharmacy Informatics Manager: VASHTI BAILEY ([phone])[facility] ([facility])[address] [place] [address] NRBC 0.0 /100 WBCs Normal 0.0-2.0 [facility] Comment on above: Performed By: #### L [id number] ####Pharmacy Informatics Manager: VASHTI BAILEY ([phone])[facility] ([facility])[address] [place] [address] Platelet mean volume (Bld) [Entitic vol] 10.3 fL Normal 9.0-12.7 [facility] Comment on above: Performed By: #### L [id number] ####Pharmacy Informatics Manager: VASHTI BAILEY ([phone])[facility])[address] [place] [address] Platelets (Bld) [#/Vol] 179 10*3/uL Normal 140-440 [facility] Comment on above: Performed By: #### L [id number] ####Pharmacy Informatics Manager: VASHTI BAILEY ([phone])[facility])[address] [place] [address] RBC (Bld) [#/Vol] 2.73 10*6/uL Low 3.80-5.20 [facility] Comment on above: Performed By: #### L [id number] ####Pharmacy Informatics Manager: VASHTI BAILEY ([phone])[facility] ([facility])[address] [place] [address] WBC (Bld) [#/Vol] 6.8 10*3/uL Normal 3.6-10.7 [facility] Comment on above: Performed By: #### L [id number] ####Pharmacy Informatics Manager: VASHTI BAILEY ([phone])[facility])[address] [place] [address] COMPREHENSIVE METABOLIC PANE Florentin 07-05-2025 Albumin [Mass/Vol] 2.5 g/dL Low 3.4-4.8 [facility] Comment on above: Performed By: #### L [id number] ####Pharmacy Informatics Manager: VASHTI BALIEY ([phone])[facility])[address] [place] [address] ALP [Catalytic activity/Vol] 121 U/L Normal 40-150 [facility] Comment on above: Performed By: #### L [id number] ####Pharmacy Informatics Manager: VASHTI BAILEY ([phone])[facility])[address] [place] [address] ALT [Catalytic activity/Vol] 21 U/L Normal <30 [facility] Comment on above: Performed By: #### L [id number] ####Pharmacy Informatics Manager: VASHTI BAILEY ([phone])[facility] ([facility])[address] [place] [address] Anion gap [Moles/Vol] 11 mmol/L Normal 3-13 [facility] Comment on above: Performed By: #### L [id number] ####Pharmacy Informatics Manager: VASHTI BAILEY ([phone])[facility] ([facility])[address] [place] [address] AST [Catalytic activity/Vol] 32 U/L Normal <34 [facility] Comment on above: Performed By: #### L [id number] ####Pharmacy Informatics Manager: VASHTI BAILEY ([phone])[facility] ([facility])[address] [place] [address] Bilirubin [Mass/Vol] 0.6 mg/dL Normal <1.2 [facility] Comment on above: Performed By: #### L [id number] ####Pharmacy Informatics Manager: VASHTI BAILEY ([phone])[facility] ([facility])[address] [place] [address] Calcium [Mass/Vol] 9.7 mg/dL Normal 8.8-10.0 [facility] Comment on above: Performed By: #### L [id number] ####Pharmacy Informatics Manager: VASHTI BIALEY ([phone])[facility] ([facility])[address] [place] [address] Chloride [Moles/Vol] 92 mmol/L Low 98-107 [facility] Comment on above: Performed By: #### L [id number] ####Pharmacy Informatics Manager: VASHTI BAILEY ([phone])[facility])[address] [place] [address] CO2 [Moles/Vol] 29 mmol/L Normal 23-31 [facility] Comment on above: Performed By: #### L [id number] ####Pharmacy Informatics Manager: VASHTI BAILEY ([phone])[facility] [place] [address] [place] Creatinine [Mass/Vol] 5.26 mg/dL High 0.57-1.11 [facility] Comment on above: Performed By: #### L [id number] ####Pharmacy Informatics Manager: VASHTI BAILEY ([phone])[facility] ([facility])[address] [place] [address] [place] GLOMERULAR FILTRATION RATE ML/MIN/1.73 SQ M.PREDICTED 7.9 mL/min/1.73m*2 Low >60.0 [facility] Comment on above: Result Comment: Calc ulation based on the Chronic Kidney Disease Epidemiology Collaboration (CKD-EPI) equation refit without adjustment for race Performed By: #### L [id number] ####Pharmacy Informatics Manager: VASHTI BAILEY ([phone])[facility] ([facility])[address] [place] [address] Glucose [Mass/Vol] 97 mg/dL Normal 82-115 [facility] Comment on above: Performed By: #### L [id number] ####Pharmacy Informatics Manager: VASHTI BAILEY ([phone])[facility])[address] [place] [address] Potassium [Moles/Vol] 4.2 mmol/L Normal 3.5-5.1 [facility] Comment on above: Result Comment: [facility] potassium values may be up to 0.5 mmol/L lower than serum values. Performed By: #### L [id number] ####Pharmacy Informatics Manager: VASHTI BAILEY ([phone])[facility] ([facility])[address] [place] [address] [place] Protein [Mass/Vol] 6.5 g/dL Normal 6.4-8.3 [facility] Comment on above: Performed By: #### L [id number] ####Pharmacy Informatics Manager: VASHTI BAILEY ([phone])[facility])[address] [place] [address] [place] Sodium [Moles/Vol] 132 mmol/L Low 136-145 [facility] Comment on above: Performed By: #### L [id number] ####Pharmacy Informatics Manager: VASHTI BAILEY ([phone])[facility] [place] [address] Urea nitrogen [Mass/Vol] 125 mg/dL High 9-23 [facility] Comment on above: Performed By: #### L [id number] ####Pharmacy Informatics Manager: VASHTI BAILEY ([phone])[facility] ([facility])[address] [place] [address] Comprehensive metabolic 1998 panelon 07-05-2025 Albumin [Mass/Vol] 2.5 g/dL Low 3.4 - 4.8 g/dL [facility] ALP [Catalytic activity/Vol] 121 U/L 40 - 150 U/L [facility] ALT [Catalytic activity/Vol] 21 U/L NINF - 30 U/L [facility] Anion gap [Moles/Vol] 11 mmol/L 3 - 13 mmol/L [facility] AST [Catalytic activity/Vol] 32 [facility] Bilirubin [Mass/Vol] 0.6 mg/dL NINF - 1.2 mg/dL [facility] Calcium [Mass/Vol] 9.7 mg/dL 8.8 - 10. 0 mg/dL [facility] Chloride [Moles/Vol] 92 mmol/L Low 98 - 10 7 mmol/L [facility] CO2 [Moles/Vol] 29 mmol/L 23 - 31 mmol/L [facility] Creatinine [Mass/Vol] 5.26 mg/dL High 0.57 - 1.11 mg/dL [facility] GFR/1.73 sq M.predicted (S/P/Bld) [Vol rate/Area] 7.9 mL/min Low - PINF [facility] Comment on above: Calculation based on the Chronic Kidney Disease Epidemiology Collaboration (CKD-EPI) equation refit without adjustment for race Glucose [Mass/Vol] 97 mg/dL 82 - 115 mg/dL [facility] Interpretation and review of laboratory results Abnormal [facility] Potassium [Moles/Vol] 4.2 mmol/L 3.5 - 5.1 mmol/L [facility] Comment on above: Plasma potassium andrae ues may be up to 0.5 mmol/L lower than serum values. Protein [Mass/Vol] 6.5 g/dL 6.4 - 8.3 g/dL [facility] Sodium [Moles/Vol] 132 mmol/L Low 136 - 145 mmol/L [facility] Urea nitrogen [Mass/Vol] 125 mg/dL High 9 - 23 mg/dL [facility] Consulton 07-05-2025 Consult Normal [facility] Consult Normal [facility] LAB ONLY - C DIFF EIAon LAB ONLY - C DIFF EIA Normal [facility] Comment on above: Performed By: #### L [id number], [id number] ####Pharmacy Informatics Manager: VASHTI BAILEY ([phone])[facility] (SAC[facility])[address] [place] [address] Laboratory - Chemistry and C hemistry - challengeon 07-05-2025 Glucose [Mass/Vol] 140 mg/dL High 70 - 100 mg/dL [facility] Glucose [Mass/Vol] 182 mg/dL High 70 - 100 mg/dL [facility] Glucose [Mass/Vol] 131 mg/dL High 70 - 100 mg/dL [facility] Glucose [Mass/Vol] 91 mg/dL 70 - 100 mg/dL [facility] No Panel Informationon 07-05 Interpretation and review of laboratory results Abnormal [facility] Performed by: [place] [address] CLIA ID: [id number] [facility] Interpretation and review of laboratory results Abnormal [facility] Performed by: [place] [address] CLIA ID: [id number] [facility] Interpretation and review of laboratory results Abnormal [facility] Performed by: [address] [address] CLIA ID: [id number] [facility] Interpretation and review of laboratory results Normal [facility] Performed by: [address] [address] CLIA ID: [id number] [facility] Nursing Noteon 07-05-2025 Nursing Note Patient bleeding fro m old IV site. Changed patient's gown, linens. Also rolled new pull pad under patient. No kinks in FMS. Normal [facility] Nursing Note Normal [facility] Nursing Note Normal [facility] [employer] Progress Noteon 07-05-2025 Progress Note Normal [facility] [employer] Progress Note Normal [facility] [employer] CBC W Auto Differential pane l (Bld)on 07-04-2025 Basophils (Bld) [#/Vol] 0.1 10*3/uL 0.0 - 0.2 10*3/uL [facility] Basophils/100 WBC (Bld) 0.7 % 0.0 - 2.0 % [facility] Eosinophils (Bld) [#/Vol] 0.2 10*3/uL 0.0 - 0.5 10*3/uL [facility] Eosinophils/100 WBC (Bld) 2.4 % 0.0 - 6.0 % [facility] Erythrocyte distribution width (RBC) [Ratio] 19.6 % High 11.5 - 15.0 % [facility] Hematocrit (Bld) [Volume fraction] 24.7 % Low 35.0 - 47.0 % [facility] Hemoglobin (Bld) [Mass/Vol] 7.9 g/dL Low 11.7 - 16.0 g/dL [facility] Immature granulocytes (Bld) [#/Vol] 0 10*3/uL NINF - 0.1 10*3/uL [facility] Immature granulocytes/100 WBC (Bld) 0.5 % 0.0 - 2.0 % [facility] Interpretation and review of laboratory results Abnormal [facility] Lymphocytes (Bld) [#/Vol] 0.9 10*3/uL Low 1.0 - 4.3 10*3/uL [facility] Lymphocytes/100 WBC (Bld) 12.5 % Low 15.0 - 45.0 % [facility] MCH (RBC) [Entitic mass] 27.1 pg 26.0 - 34.0 pg [facility] MCHC (RBC) [Mass/Vol] 32 % 30.5 - 36.0 % [facility] MCV (RBC) [Entitic vol] 84.6 fL 77.0 - 99.0 fL [facility] Monocytes (Bld) [#/Vol] 0.8 10*3/uL 0.0 - 0.9 10*3/uL [facility] Monocytes/100 WBC (Bld) 10.3 % 5.0 - 13.0 % [facility] Neutrophils (Bld) [#/Vol] 5.4 10*3/uL 1.8 - 7.5 10*3/uL [facility] Neutrophils/100 WBC (Bld) 73.6 % 38.0 - 82.0 % [facility] Nucleated RBC/100 WBC (Bld) [Ratio] 0 % [facility] Platelet mean volume (Bld) [Entitic vol] 10 fL 9.0 - 12.7 fL [facility] Platelets (Bld) [#/Vol] 171 10*3/uL 140 - 440 10*3/uL [facility] RBC (Bld) [#/Vol] 2.92 10*6/uL Low 3.80 - 5.2 0 10*6/uL [facility] WBC (Bld) [#/Vol] 7.4 10*3/uL 3.6 - 10.7 10*3/uL [facility] CBC WITH AUTO DIFFERENTIALon 07-04-2025 Basophils (Bld) [#/Vol] 0.1 10*3/uL Normal 0.0-0.2 [facility] Comment on above: Performed By: #### L [id number] ####Pharmacy Informatics Manager: VASHTI BAILEY ([phone])[facility])[address] [place] [address] Basophils/100 WBC (Bld) 0.7 % Normal 0.0-2.0 [facility] Comment on above: Performed By: #### L [id number] ####Pharmacy Informatics Manager: VASHTI BAILEY ([phone])[facility])[address] [place] [address] Eosinophils (Bld) [#/Vol] 0.2 10*3/uL Normal 0.0-0.5 [facility] Comment on above: Performed By: #### L [id number] ####Pharmacy Informatics Manager: VASHTI BAILEY ([phone])[facility])[address] [place] [address] [place] Eosinophils/100 WBC (Bld) 2.4 % Normal 0.0-6.0 [facility] Comment on above: Performed By: #### L [id number] ####Pharmacy Informatics Manager: VASHTI BAILEY ([phone])[facility])[address] [place] [address] Erythrocyte distribution width (RBC) [Ratio] 19.6 % High 11.5-15.0 [facility] Comment on above: Performed By: #### L [id number] ####Pharmacy Informatics Manager: VASHTI BAILEY ([phone])[facility])[address] [place] [address] Hematocrit (Bld) [Volume fraction] 24.7 % Low 35.0-47.0 [facility] Comment on above: Performed By: #### L [id number] ####Pharmacy Informatics Manager: VASHTI BAILEY ([phone])[facility])[address] [place] [address] Hemoglobin (Bld) [Mass/Vol] 7.9 g/dL Low 11.7-16.0 [facility] Comment on above: Performed By: #### L [id number] ####Pharmacy Informatics Manager: VASHTI BAILEY ([phone])[facility] ([facility])[address] [place] [address] IMMATURE GRANS % 0.5 % Normal 0.0-2.0 [facility] Comment on above: Performed By: #### L [id number] ####Pharmacy Informatics Manager: VASHTI BAILEY ([phone])[facility])[address] [place] [address] IMMATURE GRANS ABSOLUTE 0.0 10*3/uL Normal <0.1 [facility] Comment on above: Performed By: #### L [id number] ####Pharmacy Informatics Manager: VASHTI BAILEY ([phone])[facility])[address] [place] [address] Lymphocytes (Bld) [#/Vol] 0.9 10*3/uL Low 1.0-4.3 [facility] Comment on above: Performed By: #### L [id number] ####Pharmacy Informatics Manager: VASHTI BAILEY ([phone])[facility])[address] [place] [address] Lymphocytes/100 WBC (Bld) 12.5 % Low 15.0-45.0 [facility] Comment on above: Performed By: #### L [id number] ####Pharmacy Informatics Manager: VASHTI BAILEY ([phone])[facility])[address] [place] [address] MCH (RBC) [Entitic mass] 27.1 pg Normal 26.0-34.0 [facility] Comment on above: Performed By: #### L [id number] ####Pharmacy Informatics Manager: VASHTI BAILEY ([phone])[facility])[address] [place] [address] MCHC 32.0 % Normal 30.5-36.0 [facility] Comment on above: Performed By: #### L [id number] ####Pharmacy Informatics Manager: VASHTI BAILEY ([phone])[facility])[address] [place] [address] MCV (RBC) [Entitic vol] 84.6 fL Normal 77.0-99.0 [facility] Comment on above: Performed By: #### L [id number] ####Pharmacy Informatics Manager: VASHTI BAILEY ([phone])[facility])[address] [place] [address] Monocytes (Bld) [#/Vol] 0.8 10*3/uL Normal 0.0-0.9 [facility] Comment on above: Performed By: #### L [id number] ####Pharmacy Informatics Manager: VASHTI BAILEY ([phone])[facility])[address] [place] [address] Monocytes/100 WBC (Bld) 10.3 % Normal 5.0-13.0 [facility] Comment on above: Performed By: #### L [id number] ####Pharmacy Informatics Manager: VASHTI BAILEY ([phone])[facility])[address] [place] [address] NEUTROPHILS ABSOLUTE 5.4 10*3/uL Normal 1.8-7.5 [facility] Comment on above: Performed By: #### L [id number] ####Pharmacy Informatics Manager: VASHTI BAILEY ([phone])[facility] ([facility])[address] [place] [address] Neutrophils/100 WBC (Bld) 73.6 % Normal 38.0-82.0 [facility] Comment on above: Performed By: #### L [id number] ####Pharmacy Informatics Manager: VASHTI BAILEY ([phone])[facility] ([facility])[address] [place] [address] NRBC 0.0 /100 WBCs Normal 0.0-2.0 [facility] Comment on above: Performed By: #### L [id number] ####Pharmacy Informatics Manager: VASHTI BAILEY ([phone])[facility] ([facility])[address] [place] [address] Platelet mean volume (Bld) [Entitic vol] 10.0 fL Normal 9.0-12.7 [facility] Comment on above: Performed By: #### L [id number] ####Pharmacy Informatics Manager: VASHTI BAILEY ([phone])[facility] ([facility])[address] [place] [address] Platelets (Bld) [#/Vol] 171 10*3/uL Normal 140-440 [facility] Comment on above: Performed By: #### L [id number] ####Pharmacy Informatics Manager: VASHTI BAILEY ([phone])[facility] ([facility])[address] [place] [address] RBC (Bld) [#/Vol] 2.92 10*6/uL Low 3.80-5.20 [facility] Comment on above: Performed By: #### L [id number] ####Pharmacy Informatics Manager: VASHTI BAILEY ([phone])[facility] ([facility])[address] [place] [address] WBC (Bld) [#/Vol] 7.4 10*3/uL Normal 3.6-10.7 [facility] Comment on above: Performed By: #### L [id number] ####Pharmacy Informatics Manager: VASHTI BAILEY ([phone])[facility] [place] [address] COMPREHENSIVE METABOLIC PANE Florentin 07-04-2025 Albumin [Mass/Vol] 2.5 g/dL Low 3.4-4.8 [facility] Comment on above: Performed By: #### L [id number], LAB17 ####Pharmacy Informatics Manager: VASHTI BAILEY ([phone])[facility] [place] [address] ALP [Catalytic activity/Vol] 134 U/L Normal 40-150 [facility] Comment on above: Performed By: #### L [id number], LAB17 ####Pharmacy Informatics Manager: VASHTI BAILEY ([phone])[facility] ([facility])[address] [place] [address] ALT [Catalytic activity/Vol] 36 U/L High <30 [facility] Comment on above: Performed By: #### L [id number], LAB17 ####Pharmacy Informatics Manager: VASHTI BAILEY ([phone])[facility] [place] [address] Anion gap [Moles/Vol] 12 mmol/L Normal 3-13 [facility] Comment on above: Performed By: #### L [id number], LAB17 ####Pharmacy Informatics Manager: VASHTI BAILEY ([phone])[facility] ([facility])[address] [place] [address] AST [Catalytic activity/Vol] 40 U/L High <34 [facility] Comment on above: Performed By: #### L [id number], LAB17 ####Pharmacy Informatics Manager: VASHTI BAILEY ([phone])[facility] ([facility])[address] [place] [address] Bilirubin [Mass/Vol] 0.6 mg/dL Normal <1.2 [facility] Comment on above: Performed By: #### L [id number], LAB17 ####Pharmacy Informatics Manager: VASHTI BAILEY ([phone])[facility] ([facility])[address] [place] [address] Calcium [Mass/Vol] 9.9 mg/dL Normal 8.8-10.0 [facility] Comment on above: Performed By: #### L [id number], LAB17 ####Pharmacy Informatics Manager: VASHTI BAILEY ([phone])[facility] ([facility])[address] [place] [address] Chloride [Moles/Vol] 91 mmol/L Low 98-107 [facility] Comment on above: Performed By: #### L [id number], LAB17 ####Pharmacy Informatics Manager: VASHTI BAILEY ([phone])[facility] ([facility])[address] [place] [address] CO2 [Moles/Vol] 29 mmol/L Normal 23-31 [facility] Comment on above: Performed By: #### L [id number], LAB17 ####Pharmacy Informatics Manager: VASHTI BAILEY ([phone])[facility] ([facility])[address] [place] [address] Creatinine [Mass/Vol] 4.92 mg/dL High 0.57-1.11 [facility] Comment on above: Performed By: #### L [id number], LAB17 ####Pharmacy Informatics Manager: VASHTI BAILEY ([phone])[facility])[address] [place] [address] GLOMERULAR FILTRATION RATE ML/MIN/1.73 SQ M.PREDICTED 8.6 mL/min/1.73m*2 Low >60.0 [facility] Comment on above: Result Comment: Calc ulation based on the Chronic Kidney Disease Epidemiology Collaboration (CKD-EPI) equation refit without adjustment for race Performed By: #### L [id number], LAB17 ####Pharmacy Informatics Manager: VASHTI BAILEY ([phone])[facility] ([facility])[address] [place] [address] Glucose [Mass/Vol] 125 mg/dL High 82-115 [facility] Comment on above: Performed By: #### L [id number], LAB17 ####Pharmacy Informatics Manager: VASHTI [phone])[facility])[address] [place] [address] Potassium [Moles/Vol] 4.7 mmol/L Normal 3.5-5.1 [facility] Comment on above: Result Comment: [facility] potassium values may be up to 0.5 mmol/L lower than serum values. Performed By: #### L [id number], LAB17 ####Pharmacy Informatics Manager: VASHTI BAILEY ([phone])[facility] ([facility])[address] [place] [address] Protein [Mass/Vol] 6.7 g/dL Normal 6.4-8.3 [facility] Comment on above: Performed By: #### L [id number], LAB17 ####Pharmacy Informatics Manager: VASHTI BAILEY ([phone])[facility] ([facility])[address] [place] [address] Sodium [Moles/Vol] 132 mmol/L Low 136-145 [facility] Comment on above: Performed By: #### L [id number], LAB17 ####Pharmacy Informatics Manager: VASHTI BAILEY ([phone])[facility] ([facility])[address] [place] [address] Urea nitrogen [Mass/Vol] 106 mg/dL High 9-23 [facility] Comment on above: Performed By: #### L [id number], LAB17 ####Pharmacy Informatics Manager: VASHTI BAILEY ([phone])[facility] ([facility])[address] [place] [address] Comprehensive metabolic 1998 panelon 07-04-2025 Albumin [Mass/Vol] 2.5 g/dL Low 3.4 - 4.8 g/dL [facility] ALP [Catalytic activity/Vol] 134 U/L 40 - 150 U/L [facility] ALT [Catalytic activity/Vol] 36 U/L High NINF - 30 U/L [facility] Anion gap [Moles/Vol] 12 mmol/L 3 - 13 mmol/L [facility] AST [Catalytic activity/Vol] 40 U/L High NINF - 34 U/L [facility] Bilirubin [Mass/Vol] 0.6 mg/dL NINF - 1.2 mg/dL [facility] Calcium [Mass/Vol] 9.9 mg/dL 8.8 - 10. 0 mg/dL [facility] Chloride [Moles/Vol] 91 mmol/L Low 98 - 10 7 mmol/L [facility] CO2 [Moles/Vol] 29 mmol/L 23 - 31 mmol/L [facility] Creatinine [Mass/Vol] 4.92 mg/dL High 0.57 - 1.11 mg/dL [facility] GFR/1.73 sq M.predicted (S/P/Bld) [Vol rate/Area] 8.6 mL/min Low - PINF [facility] Comment on above: Calculation based on the Chronic Kidney Disease Epidemiology Collaboration (CKD-EPI) equation refit without adjustment for race Glucose [Mass/Vol] 125 mg/dL High 82 - 115 mg/dL [facility] Interpretation and review of laboratory results Abnormal [facility] Potassium [Moles/Vol] 4.7 mmol/L 3.5 - 5.1 mmol/L [facility] Comment on above: Plasma potassium andrae ues may be up to 0.5 mmol/L lower than serum values. Protein [Mass/Vol] 6.7 g/dL 6.4 - 8.3 g/dL [facility] Sodium [Moles/Vol] 132 mmol/L Low 136 - 145 mmol/L [facility] Urea nitrogen [Mass/Vol] 106 mg/dL High 9 - 23 mg/dL [facility] ED Nursing Noteon 07-04-2025 ED Nursing Note Report given to RYNE Browning on T2 ICU Normal [facility] ED Nursing Note Patient incontinent of stool. Cleaned and repositioned to her R side with wedges. Normal [facility] ED Nursing Note Kangaroo pump requested as well as PEG nutrition Normal [facility] ED Provider Noteon ED Provider Note Normal [facility] Guidance for exchange of non -tunneled CV [...] DR Electronically Signed Date/Time: 07/04/2025 3:20 PM [facility] Patient Name: ROSA MYERS : [...] clinical history: None Complications: No immediate complications. [facility] Yamil Newby MD - 07/04/2025 Patient [...] Electronically Signed Date/Time: 07/04/2025 3:20 PM EDT [facility] Radiology Study observation (narrative) [facility] betty Guidance for exchange of non -tunneled CV catheter of ChestOrdered By: Yamil Newby on 07-04-2025 [facility] Work Phone: HBV surface Ab IA Qnon 07-04 Interpretation: <8.0 Non-Reactive 8.0-11.9 Equivocal >= 12.0 Ab Detected Note: If an equivocal result is interpreted, an antibody status is unable to be determined. Collect new specimen if clinically indicated. [facility] HBV surface Ag IA Qlon 07-04 Interpretation and review of laboratory results Normal [facility] HEMOGLOBIN A1Con 07-04-2025 Glucose [Mass/Vol] 114 mg/dL Normal [facility] Comment on above: Result Comment: DORIAN Knight COMMENTS:If not done within the last 3 [id number] values of 5.7-6.4 percent indicate an increased risk for developing diabetes mellitus. HbA1c values greater than or equal to 6.5 percent are diagnostic of diabetes mellitus. For diagnosis of diabetes in individuals without unequivocal hyperglycemia, results should be confirmed by repeat testing. Performed By: #### L AB90 ####Pharmacy Informatics Manager: VASHTI BAILEY ([phone])[facility] ([address] HEMOGLOBIN A1C 5.6 %HbA1C Normal <5.7 [facility] Comment on above: Result Comment: Norm al less than 5.7%Prediabetes 5.7% to 6.4%Diabetes 6.5% or higher--HgbA1C levels may not be accurate in patients who have renal disease, received recent blood transfusions, are anemic, or who have dyshemoglobinemia. Performed By: #### L AB90 ####Pharmacy Informatics Manager: VASHTI BAILEY ([phone])[facility] ([facility])[address] [place] [address] HEPATITIS B SURFACE ANTIBODY on 07-04-2025 HEPATITIS B VIRUS SURFACE AB <8.0 Normal [facility] Comment on above: Result Comment: ORDE R COMMENTS:Interpretation:<8.0 Non-Reactive8.0-11.9 Equivocal>= 12.0 Ab DetectedNote: If an equivocal result is interpreted, an antibody status is unable to be determined. Collect new specimen if clinically indicated. Performed By: #### L [id number], [id number] ####Pharmacy Informatics Manager: VASHTI BAILEY ([phone])[facility] ([facility])[address] [place] [address] HEPATITIS B SURFACE ANTIGENo n 07-04-2025 HEPATITIS B VIRUS SURFACE AG Not detected Normal Not Detected [facility] Comment on above: Performed By: #### L [id number], [id number] ####Pharmacy Informatics Manager: VASHTI BAILEY ([phone])[facility] ([facility])[address] [place] [address] Laboratory - Chemistry and C hemistry - challengeon 07-04-2025 Glucose [Mass/Vol] 137 mg/dL High 70 - 100 mg/dL [facility] Average glucose Estimated from glycated hemoglobin (Bld) [Mass/Vol] 114 mg/dL [facility] Laboratory - Hematology and Cell countson 07-04-2025 HbA1c (Bld) [Mass fraction] 5.6 % [facility] Comment on above: Normal less than 5.7 % Prediabetes 5.7% to 6.4% Diabetes 6.5% or higher --HgbA1C levels may not be accurate in patients who have renal disease, received recent blood transfusions, are anemic, or who have dyshemoglobinemia. Laboratory - Microbiology an d Antimicrobial susceptibilityon 07-04-2025 HBV surface Ab IA Qn mIU/mL [facility] HBV surface Ag IA Ql Not detected Not Detected [facility] NT PRO BNPon 07-04-2025 Natriuretic peptide B (Bld) [Mass/Vol] 07067 pg/mL High <956 [facility] [employer] Comment on above: Result Comment: DORIAN Knight [...] values. Performed By: #### L AB106, LAB17 ####Pharmacy Informatics Manager: VASHTI BAILEY ([phone])[address] Natriuretic peptide B [Mass/ Vol]Ordered By: Kellee Savage on 07-04-2025 Interpretation and review of laboratory results Abnormal [facility] Natriuretic peptide B (Bld) [Mass/Vol] 30052 pg/mL High NINF - 956 pg/mL [facility] In patients with suspected acute HF, [...] may not correlate well with previous values. [facility] No Panel Informationon 07-04 Interpretation and review of laboratory results Abnormal [facility] Performed by: [facility], [address] [place] [address], [facility] [address] CLIA ID: [id number] [facility] HbA1c values of 5.7-6.4 percent indicate an increased risk for developing diabetes mellitus. HbA1c values greater than or equal to 6.5 percent are diagnostic of diabetes mellitus. For diagnosis of diabetes in individuals without unequivocal hyperglycemia, results should be confirmed by repeat testing. [facility] Nursing Noteon 07-04-2025 Nursing Note Pt transported to ER 37 with RT. 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 Normal [facility] Nursing Note Normal [facility] Nursing Note Unable to place IV - charge master analyst notified. Limited History per paperwork brought - updated LOOP TACKER Melvi from anesthesia. RT Tamar was at bedside and switched pt from physicians transport vent to [facility] Normal [facility] Progress Noteon 07-04-2025 Progress Note Normal [facility] CBC W Auto Differential pane l (Bld)on 07-03-2025 Basophils (Bld) [#/Vol] 0 10*3/uL 0.0 - 0.2 10*3/uL [facility] Basophils/100 WBC (Bld) 0.4 % 0.0 - 2.0 % [facility] Eosinophils (Bld) [#/Vol] 0.2 10*3/uL 0.0 - 0.5 10*3/uL [facility] Eosinophils/100 WBC (Bld) 2 % 0.0 - 6.0 % [facility] Erythrocyte distribution width (RBC) [Ratio] 19.6 % High 11.5 - 15.0 % [facility] Hematocrit (Bld) [Volume fraction] 25.1 % Low 35.0 - 47.0 % [facility] Hemoglobin (Bld) [Mass/Vol] 8 g/dL Low 11.7 - 16.0 g/dL [facility] Immature granulocytes (Bld) [#/Vol] 0.1 10*3/uL High NINF - 0.1 10*3/uL [facility] Immature granulocytes/100 WBC (Bld) 0.8 % 0.0 - 2.0 % [facility] Interpretation and review of laboratory results Abnormal [facility] Lymphocytes (Bld) [#/Vol] 0.8 10*3/uL Low 1.0 - 4.3 10*3/uL [facility] Lymphocytes/100 WBC (Bld) 11.3 % Low 15.0 - 45.0 % [facility] [facility] MCH (RBC) [Entitic mass] 27.2 pg 26.0 - 34.0 pg [facility] MCHC (RBC) [Mass/Vol] 31.9 % 30.5 - 36.0 % [facility] MCV (RBC) [Entitic vol] 85.4 fL 77.0 - 99.0 fL [facility] Monocytes (Bld) [#/Vol] 0.9 10*3/uL 0.0 - 0.9 10*3/uL [facility] Monocytes/100 WBC (Bld) 11.7 % 5.0 - 13.0 % [facility] Neutrophils (Bld) [#/Vol] 5.4 10*3/uL 1.8 - 7.5 10*3/uL [facility] Neutrophils/100 WBC (Bld) 73.8 % 38.0 - 82.0 % [facility] Nucleated RBC/100 WBC (Bld) [Ratio] 0 % [facility] Platelet mean volume (Bld) [Entitic vol] 10 fL 9.0 - 12.7 fL [facility] Platelets (Bld) [#/Vol] 197 10*3/uL 140 - 440 10*3/uL [facility] RBC (Bld) [#/Vol] 2.94 10*6/uL Low 3.80 - 5.2 0 10*6/uL [facility] WBC (Bld) [#/Vol] 7.3 10*3/uL 3.6 - 10.7 10*3/uL [facility] CBC WITH AUTO DIFFERENTIALon 07-03-2025 Basophils (Bld) [#/Vol] 0.0 10*3/uL Normal 0.0-0.2 [facility] Comment on above: Performed By: #### L [id number] ####Pharmacy Informatics Manager: VASHTI BAILEY ([phone])[facility])[address] [place] [address] Basophils/100 WBC (Bld) 0.4 % Normal 0.0-2.0 [facility] Comment on above: Performed By: #### L [id number] ####Pharmacy Informatics Manager: VASHTI BAILEY ([phone])[facility])[address] [place] [address] Eosinophils (Bld) [#/Vol] 0.2 10*3/uL Normal 0.0-0.5 [facility] Comment on above: Performed By: #### L [id number] ####Pharmacy Informatics Manager: VASHTI BAILEY ([phone])[facility])[address] [place] [address] Eosinophils/100 WBC (Bld) 2.0 % Normal 0.0-6.0 [facility] Comment on above: Performed By: #### L [id number] ####Pharmacy Informatics Manager: VASHTI BAILEY ([phone])[facility])[address] [place] [address] Erythrocyte distribution width (RBC) [Ratio] 19.6 % High 11.5-15.0 [facility] Comment on above: Performed By: #### L [id number] ####Pharmacy Informatics Manager: VASHTI BAILEY ([phone])[facility])[address] [place] [address] Hematocrit (Bld) [Volume fraction] 25.1 % Low 35.0-47.0 [facility] Comment on above: Performed By: #### L [id number] ####Pharmacy Informatics Manager: VASHTI BAILEY ([phone])[facility])[address] [place] [address] Hemoglobin (Bld) [Mass/Vol] 8.0 g/dL Low 11.7-16.0 [facility] Comment on above: Performed By: #### L [id number] ####Pharmacy Informatics Manager: VASHTI BAILEY ([phone])[facility])[address] [place] [address] IMMATURE GRANS % 0.8 % Normal 0.0-2.0 [facility] Comment on above: Performed By: #### L [id number] ####Pharmacy Informatics Manager: VASHTI BAILEY ([phone])[facility])[address] [place] [address] IMMATURE GRANS ABSOLUTE 0.1 10*3/uL High <0.1 [facility] Comment on above: Performed By: #### L [id number] ####Pharmacy Informatics Manager: VASHTI BAILEY ([phone])[facility])[address] [place] [address] Lymphocytes (Bld) [#/Vol] 0.8 10*3/uL Low 1.0-4.3 [facility] Comment on above: Performed By: #### L [id number] ####Pharmacy Informatics Manager: VASHTI BAILEY ([phone])[facility])[address] [place] [address] Lymphocytes/100 WBC (Bld) 11.3 % Low 15.0-45.0 [facility] Comment on above: Performed By: #### L [id number] ####Pharmacy Informatics Manager: VASHTI BAILEY ([phone])[facility])[address] [place] [address] MCH (RBC) [Entitic mass] 27.2 pg Normal 26.0-34.0 [facility] Comment on above: Performed By: #### L [id number] ####Pharmacy Informatics Manager: VASHTI BAILEY ([phone])[facility])[address] [place] [address] MCHC 31.9 % Normal 30.5-36.0 [facility] Comment on above: Performed By: #### L [id number] ####Pharmacy Informatics Manager: VASHTI BAILEY ([phone])[facility])[address] [place] [address] MCV (RBC) [Entitic vol] 85.4 fL Normal 77.0-99.0 [facility] Comment on above: Performed By: #### L [id number] ####Pharmacy Informatics Manager: VASHTI BAILEY ([phone])[facility])[address] [place] [address] Monocytes (Bld) [#/Vol] 0.9 10*3/uL Normal 0.0-0.9 [facility] Comment on above: Performed By: #### L [id number] ####Pharmacy Informatics Manager: VASHTI BAILEY ([phone])[facility] ([facility])[address] [place] [address] Monocytes/100 WBC (Bld) 11.7 % Normal 5.0-13.0 [facility] Comment on above: Performed By: #### L [id number] ####Pharmacy Informatics Manager: VASHTI BAILEY ([phone])[facility] ([facility])[address] [place] [address] NEUTROPHILS ABSOLUTE 5.4 10*3/uL Normal 1.8-7.5 [facility] Comment on above: Performed By: #### L [id number] ####Pharmacy Informatics Manager: VASHTI BAILEY ([phone])[facility] ([facility])[address] [place] [address] Neutrophils/100 WBC (Bld) 73.8 % Normal 38.0-82.0 [facility] Comment on above: Performed By: #### L [id number] ####Pharmacy Informatics Manager: VASHTI BAILEY ([phone])[facility] ([facility])[address] [place] [address] NRBC 0.0 /100 WBCs Normal 0.0-2.0 [facility] Comment on above: Performed By: #### L [id number] ####Pharmacy Informatics Manager: VASHTI BAILEY ([phone])[facility] ([facility])[address] [place] [address] Platelet mean volume (Bld) [Entitic vol] 10.0 fL Normal 9.0-12.7 [facility] Comment on above: Performed By: #### L [id number] ####Pharmacy Informatics Manager: VASHTI BAILEY ([phone])[facility] ([facility])[address] [place] [address] Platelets (Bld) [#/Vol] 197 10*3/uL Normal 140-440 [facility] Comment on above: Performed By: #### L [id number] ####Pharmacy Informatics Manager: VASHTI BAILEY ([phone])[facility] ([facility])[address] [place] [address] RBC (Bld) [#/Vol] 2.94 10*6/uL Low 3.80-5.20 [facility] Comment on above: Performed By: #### L [id number] ####Pharmacy Informatics Manager: VASHTI BAILEY ([phone])[facility])[address] [place] [address] WBC (Bld) [#/Vol] 7.3 10*3/uL Normal 3.6-10.7 [facility] Comment on above: Performed By: #### L [id number] ####Pharmacy Informatics Manager: VASHTI BAILEY ([phone])[facility])[address] [place] [address] COMPREHENSIVE METABOLIC PANE Florentin 07-03-2025 Albumin [Mass/Vol] 2.5 g/dL Low 3.4-4.8 [facility] Comment on above: Performed By: #### L [id number], [id number] ####Pharmacy Informatics Manager: VASHTI BAILEY ([phone])[facility] ([facility])[address] [place] [address] ALP [Catalytic activity/Vol] 135 U/L Normal 40-150 [facility] Comment on above: Performed By: #### L [id number], [id number] ####Pharmacy Informatics Manager: VASHTI BAILEY ([phone])[facility])[address] [place] [address] ALT [Catalytic activity/Vol] 25 U/L Normal <30 [facility] Comment on above: Performed By: #### L [id number], [id number] ####Pharmacy Informatics Manager: VASHTI BAILEY ([phone])[facility] [place] [address] Anion gap [Moles/Vol] 12 mmol/L Normal 3-13 [facility] Comment on above: Performed By: #### L AB17, [id number] ####Pharmacy Informatics Manager: VASHTI BAILEY ([phone])[facility] [place] [address] AST [Catalytic activity/Vol] 39 U/L High <34 [facility] Comment on above: Performed By: #### L [id number], [id number] ####Pharmacy Informatics Manager: VASHTI BAILEY ([phone])[facility] ([facility])[address] [place] [address] Bilirubin [Mass/Vol] 0.5 mg/dL Normal <1.2 [facility] Comment on above: Performed By: #### L [id number], [id number] ####Pharmacy Informatics Manager: VASHTI BAILEY ([phone])[facility] [place] [address] Calcium [Mass/Vol] 10.1 mg/dL High 8.8-10.0 [facility] Comment on above: Performed By: #### L [id number], [id number] ####Pharmacy Informatics Manager: VASHTI BAILEY ([phone])[facility])[address] [place] [address] [place] Chloride [Moles/Vol] 92 mmol/L Low 98-107 [facility] Comment on above: Performed By: #### L AB17, [id number] ####Pharmacy Informatics Manager: VASHTI BAILEY ([phone])[facility] ([facility])[address] [place] [address] [place] CO2 [Moles/Vol] 30 mmol/L Normal 23-31 [facility] Comment on above: Performed By: #### L AB17, [id number] ####Pharmacy Informatics Manager: VASHTI BAILEY ([phone])[facility] [place] [address] [place] Creatinine [Mass/Vol] 4.14 mg/dL High 0.57-1.11 [facility] Comment on above: Performed By: #### L AB17, [id number] ####Pharmacy Informatics Manager: VASHTI BAILEY ([phone])[facility])[address] [place] [address] GLOMERULAR FILTRATION RATE ML/MIN/1.73 SQ M.PREDICTED 10.6 mL/min/1.73m*2 Low >60.0 [facility] Comment on above: Result Comment: Calc ulation based on the Chronic Kidney Disease Epidemiology Collaboration (CKD-EPI) equation refit without adjustment for race Performed By: #### L 17, [id number] ####Pharmacy Informatics Manager: VASHTI BAILEY ([phone])[facility])[address] [place] [address] Glucose [Mass/Vol] 118 mg/dL High 82-115 [facility] Comment on above: Performed By: #### Perez GARCIA17, [id number] ####Pharmacy Informatics Manager: VASHTI BAILEY ([phone])[facility])[address] [place] [address] Potassium [Moles/Vol] 3.9 mmol/L Normal 3.5-5.1 [facility] Comment on above: Result Comment: [facility] potassium values may be up to 0.5 mmol/L lower than serum values. Performed By: #### L 17, [id number] ####Pharmacy Informatics Manager: VASHTI BAILEY ([phone])[facility])[address] [place] [address] Protein [Mass/Vol] 6.8 g/dL Normal 6.4-8.3 [facility] Comment on above: Performed By: #### L AB17, [id number] ####Pharmacy Informatics Manager: VASHTI BAILEY ([phone])[facility])[address] [place] [address] Sodium [Moles/Vol] 134 mmol/L Low 136-145 [facility] Comment on above: Performed By: #### L AB17, [id number] ####Pharmacy Informatics Manager: VASHTI [phone])[facility] ([facility])[address] [place] [address] Urea nitrogen [Mass/Vol] 88 mg/dL High 9-23 [facility] Comment on above: Performed By: #### L AB17, [id number] ####Pharmacy Informatics Manager: VASHTI BAILEY ([phone])[facility] ([facility])[address] [place] [address] Comprehensive metabolic 1998 panelon 07-03-2025 Albumin [Mass/Vol] 2.5 g/dL Low 3.4 - 4.8 g/dL [facility] ALP [Catalytic activity/Vol] 135 U/L 40 - 150 U/L [facility] ALT [Catalytic activity/Vol] 25 U/L NINF - 30 U/L [facility] Anion gap [Moles/Vol] 12 mmol/L 3 - 13 mmol/L [facility] AST [Catalytic activity/Vol] 39 U/L High NINF - 34 U/L [facility] Bilirubin [Mass/Vol] 0.5 mg/dL NINF - 1.2 mg/dL [facility] Calcium [Mass/Vol] 10.1 mg/dL High 8.8 - 10. 0 mg/dL [facility] Chloride [Moles/Vol] 92 mmol/L Low 98 - 10 7 mmol/L [facility] CO2 [Moles/Vol] 30 mmol/L 23 - 31 mmol/L [facility] Creatinine [Mass/Vol] 4.14 mg/dL High 0.57 - 1.11 mg/dL [facility] GFR/1.73 sq M.predicted (S/P/Bld) [Vol rate/Area] 10.6 mL/min Low - PINF [facility] Comment on above: Calculation based on the Chronic Kidney Disease Epidemiology Collaboration (CKD-EPI) equation refit without adjustment for race Glucose [Mass/Vol] 118 mg/dL High 82 - 115 mg/dL [facility] Interpretation and review of laboratory results Abnormal [facility] Potassium [Moles/Vol] 3.9 mmol/L 3.5 - 5.1 mmol/L [facility] Comment on above: Plasma potassium andrae ues may be up to 0.5 mmol/L lower than serum values. Protein [Mass/Vol] 6.8 g/dL 6.4 - 8.3 g/dL [facility] Sodium [Moles/Vol] 134 mmol/L Low 136 - 145 mmol/L [facility] Urea nitrogen [Mass/Vol] 88 mg/dL High 9 - 23 mg/dL [facility] ECG 12-LEADon 07-03-2025 ECG 12-LEAD IMPRESSION: Sinus rhythm Atrial premature complexes Left bundle branch block No change compared to previous ekg Electronically Signed On 07-03-2025 13:49:02 EDT by Gerardo Felder Normal [facility] ED Provider Noteon ED Provider Note Normal [facility] Laboratory - Chemistry and C hemistry - challengeon 07-03-2025 Magnesium [Mass/Vol] 2.6 mg/dL 1.6 - 2 .6 mg/dL [facility] MAGNESIUMon 07-03-2025 Magnesium [Mass/Vol] 2.6 mg/dL Normal 1.6-2.6 [facility] Comment on above: Result Comment: DORIAN Knight COMMENTS:Higher values can be expected in females during menses. Performed By: #### L AB17, [id number] ####Pharmacy Informatics Manager: VASHTI BAILEY ([phone])[facility] ([address] Magnesium [Mass/Vol]on 07-03 Interpretation and review of laboratory results Normal [facility] Higher values can be expected in females during menses. [facility] No Panel Informationon 07-03 [facility] P [place] -1 degrees [facility] [place] Interval 175 ms [facility] QRS [place] -15 degrees [facility] QRSD Interval 177 ms [facility] QT Interval 516 ms [facility] QTC Interval 539 ms [facility] T [place] 182 degrees [facility] Sinus rhythm Atrial premature complexes Left bundle branch block No change compared to previous ekg Electronically Signed On 07-03-2025 13:49:02 EDT by Gerardo Felder CV Gerardo Greenberg M D - 07/03/2025 IMPRESSION: Sinus rhythm Atrial premature complexes Left bundle branch block No change compared to previous ekg Electronically Signed On 07-03-2025 13:49:02 EDT by Gerardo Felder [facility] Vital signson 07-03-2025 Heart rate 68 /min bpm [facility] XR Chest Single viewon 07-03 FINDINGS/IMPRESSION: [...] Electronically Signed Date/Time: 07/03/2025 2:48 PM EDT [facility] Patient Name: ROSA MYERS : 1950 Exam Date/Time: 07/03/2025 14:28 Procedure: XR CHEST 1 VIEW Ordering Provider: REDD JUSTIN Reason For Exam: dialysis port concerns CHEST - PORTABLE: CLINICAL INDICATION: dialysis port concerns TECHNIQUE: Portable AP COMPARISON: 06/08/2025. [facility] Amaris Slade MD - 07/03/2025 [...] Electronically Signed Date/Time: 07/03/2025 2:48 PM EDT [facility] [employer] Radiology Study observation (narrative) [facility] XR Chest Single viewOrdered By: Amaris Slade on 07-03-2025 [facility] [employer] Work Phone: CBC W Auto Differential pane l (Bld)on 07-02-2025 Basophils (Bld) [#/Vol] 0.1 10*3/uL 0.0 - 0.2 10*3/uL [facility] Basophils/100 WBC (Bld) 0.7 % 0.0 - 2.0 % [facility] [employer] [facility] Eosinophils (Bld) [#/Vol] 0.2 10*3/uL 0.0 - 0.5 10*3/uL [facility] Eosinophils/100 WBC (Bld) 2.2 % 0.0 - 6.0 % [facility] Erythrocyte distribution width (RBC) [Ratio] 19.7 % High 11.5 - 15.0 % [facility] Hematocrit (Bld) [Volume fraction] 25.5 % Low 35.0 - 47.0 % [facility] Hemoglobin (Bld) [Mass/Vol] 8.2 g/dL Low 11.7 - 16.0 g/dL [facility] Immature granulocytes (Bld) [#/Vol] 0.1 10*3/uL High NINF - 0.1 10*3/uL [facility] Immature granulocytes/100 WBC (Bld) 0.9 % 0.0 - 2.0 % [facility] Interpretation and review of laboratory results Abnormal [facility] Lymphocytes (Bld) [#/Vol] 0.9 10*3/uL Low 1.0 - 4.3 10*3/uL [facility] [employer] Lymphocytes/100 WBC (Bld) 12.7 % Low 15.0 - 45.0 % [facility] [facility] MCH (RBC) [Entitic mass] 27.3 pg 26.0 - 34.0 pg [facility] MCHC (RBC) [Mass/Vol] 32.2 % 30.5 - 36.0 % [facility] MCV (RBC) [Entitic vol] 85 fL 77.0 - 99.0 fL [facility] Monocytes (Bld) [#/Vol] 0.9 10*3/uL 0.0 - 0.9 10*3/uL [facility] Monocytes/100 WBC (Bld) 12.9 % 5.0 - 13.0 % [facility] Neutrophils (Bld) [#/Vol] 4.8 10*3/uL 1.8 - 7.5 10*3/uL [facility] Neutrophils/100 WBC (Bld) 70.6 % 38.0 - 82.0 % [facility] Nucleated RBC/100 WBC (Bld) [Ratio] 0 % [facility] Platelet mean volume (Bld) [Entitic vol] 10 fL 9.0 - 12.7 fL [facility] Platelets (Bld) [#/Vol] 196 10*3/uL 140 - 440 10*3/uL [facility] RBC (Bld) [#/Vol] 3 10*6/uL Low 3.80 - 5.2 0 10*6/uL [facility] WBC (Bld) [#/Vol] 6.8 10*3/uL 3.6 - 10.7 10*3/uL [facility] CBC WITH AUTO DIFFERENTIALon 07-02-2025 Basophils (Bld) [#/Vol] 0.1 10*3/uL Normal 0.0-0.2 [facility] Comment on above: Performed By: #### L [id number] ####Pharmacy Informatics Manager: VASHTI BAILEY ([phone])[facility])[address] [place] [address] Basophils/100 WBC (Bld) 0.7 % Normal 0.0-2.0 [facility] Comment on above: Performed By: #### L [id number] ####Pharmacy Informatics Manager: VASHTI BAILEY ([phone])[facility] ([facility])[address] [place] [address] Eosinophils (Bld) [#/Vol] 0.2 10*3/uL Normal 0.0-0.5 [facility] Comment on above: Performed By: #### L [id number] ####Pharmacy Informatics Manager: VASHTI BAILEY ([phone])[address] Eosinophils/100 WBC (Bld) 2.2 % Normal 0.0-6.0 [facility] Comment on above: Performed By: #### L [id number] ####Pharmacy Informatics Manager: VASHTI BAILEY ([phone])[facility])[address] [place] [address] Erythrocyte distribution width (RBC) [Ratio] 19.7 % High 11.5-15.0 [facility] Comment on above: Performed By: #### L [id number] ####Pharmacy Informatics Manager: VASHTI BAILEY ([phone])[address] Hematocrit (Bld) [Volume fraction] 25.5 % Low 35.0-47.0 [facility] Comment on above: Performed By: #### L [id number] ####Pharmacy Informatics Manager: VASHTI BAILEY ([phone])[address] Hemoglobin (Bld) [Mass/Vol] 8.2 g/dL Low 11.7-16.0 [facility] Comment on above: Performed By: #### L [id number] ####Pharmacy Informatics Manager: VASHTI BAILEY ([phone])[address] IMMATURE GRANS % 0.9 % Normal 0.0-2.0 [facility] Comment on above: Performed By: #### L [id number] ####Pharmacy Informatics Manager: VASHTI BAILEY ([phone])[address] IMMATURE GRANS ABSOLUTE 0.1 10*3/uL High <0.1 [facility] Comment on above: Performed By: #### L [id number] ####Pharmacy Informatics Manager: VASHTI BAILEY ([phone])[facility])[address] [place] [address] Lymphocytes (Bld) [#/Vol] 0.9 10*3/uL Low 1.0-4.3 [facility] Comment on above: Performed By: #### L [id number] ####Pharmacy Informatics Manager: VASHTI BAILEY ([phone])[facility])[address] [place] [address] Lymphocytes/100 WBC (Bld) 12.7 % Low 15.0-45.0 [facility] Comment on above: Performed By: #### L [id number] ####Pharmacy Informatics Manager: VASHTI BAILEY ([phone])[facility])[address] [place] [address] MCH (RBC) [Entitic mass] 27.3 pg Normal 26.0-34.0 [facility] Comment on above: Performed By: #### L [id number] ####Pharmacy Informatics Manager: VASHTI BAILEY ([phone])[facility])[address] [place] [address] MCHC 32.2 % Normal 30.5-36.0 [facility] Comment on above: Performed By: #### L [id number] ####Pharmacy Informatics Manager: VASHTI BAILEY ([phone])[facility])[address] [place] [address] MCV (RBC) [Entitic vol] 85.0 fL Normal 77.0-99.0 [facility] Comment on above: Performed By: #### L [id number] ####Pharmacy Informatics Manager: VASHTI BAILEY ([phone])[facility])[address] [place] [address] Monocytes (Bld) [#/Vol] 0.9 10*3/uL Normal 0.0-0.9 [facility] Comment on above: Performed By: #### L [id number] ####Pharmacy Informatics Manager: VASHTI BAILEY ([phone])[facility])[address] [place] [address] [place] Monocytes/100 WBC (Bld) 12.9 % Normal 5.0-13.0 [facility] Comment on above: Performed By: #### L [id number] ####Pharmacy Informatics Manager: VASHTI BAILEY ([phone])[facility] ([facility])[address] [place] [address] NEUTROPHILS ABSOLUTE 4.8 10*3/uL Normal 1.8-7.5 [facility] Comment on above: Performed By: #### L [id number] ####Pharmacy Informatics Manager: VASHTI BAILEY ([phone])[facility] ([facility])[address] [place] [address] Neutrophils/100 WBC (Bld) 70.6 % Normal 38.0-82.0 [facility] Comment on above: Performed By: #### L [id number] ####Pharmacy Informatics Manager: VASHTI BAILEY ([phone])[facility] ([facility])[address] [place] [address] NRBC 0.0 /100 WBCs Normal 0.0-2.0 [facility] Comment on above: Performed By: #### L [id number] ####Pharmacy Informatics Manager: VASHTI BAILEY ([phone])[facility] ([facility])[address] [place] [address] Platelet mean volume (Bld) [Entitic vol] 10.0 fL Normal 9.0-12.7 [facility] Comment on above: Performed By: #### L [id number] ####Pharmacy Informatics Manager: VASHTI BAILEY ([phone])[facility] ([facility])[address] [place] [address] Platelets (Bld) [#/Vol] 196 10*3/uL Normal 140-440 [facility] Comment on above: Performed By: #### L [id number] ####Pharmacy Informatics Manager: VASHTI BAILEY ([phone])[facility] ([facility])[address] [place] [address] RBC (Bld) [#/Vol] 3.00 10*6/uL Low 3.80-5.20 [facility] Comment on above: Performed By: #### L [id number] ####Pharmacy Informatics Manager: VASHTI BAILEY ([phone])[facility])[address] [place] [address] WBC (Bld) [#/Vol] 6.8 10*3/uL Normal 3.6-10.7 [facility] Comment on above: Performed By: #### L [id number] ####Pharmacy Informatics Manager: VASHTI BAILEY ([phone])[facility])[address] [place] [address] COMPREHENSIVE METABOLIC PANE Florentin 07-02-2025 Albumin [Mass/Vol] 2.7 g/dL Low 3.4-4.8 [facility] Comment on above: Performed By: #### L [id number] ####Pharmacy Informatics Manager: VASHTI BAILEY ([phone])[facility])[address] [place] [address] ALP [Catalytic activity/Vol] 141 U/L Normal 40-150 [facility] Comment on above: Performed By: #### L [id number] ####Pharmacy Informatics Manager: VASHTI BAILEY ([phone])[facility])[address] [place] [address] ALT [Catalytic activity/Vol] 26 U/L Normal <30 [facility] Comment on above: Performed By: #### L [id number] ####Pharmacy Informatics Manager: VASHTI BAILEY ([phone])[facility])[address] [place] [address] Anion gap [Moles/Vol] 12 mmol/L Normal 3-13 [facility] Comment on above: Performed By: #### L [id number] ####Pharmacy Informatics Manager: VASHTI BAILEY ([phone])[facility])[address] [place] [address] AST [Catalytic activity/Vol] 33 U/L Normal <34 [facility] Comment on above: Performed By: #### L AB17 ####Pharmacy Informatics Manager: VASHTI BAILEY ([phone])[facility] [place] [address] Bilirubin [Mass/Vol] 0.6 mg/dL Normal <1.2 [facility] Comment on above: Performed By: #### L [id number] ####Pharmacy Informatics Manager: VASHTI BAILEY ([phone])[facility] [place] [address] Calcium [Mass/Vol] 10.1 mg/dL High 8.8-10.0 [facility] Comment on above: Performed By: #### L [id number] ####Pharmacy Informatics Manager: VASHTI BAILEY ([phone])[facility] [place] [address] Chloride [Moles/Vol] 91 mmol/L Low 98-107 [facility] Comment on above: Performed By: #### L [id number] ####Pharmacy Informatics Manager: VASHTI BAILEY ([phone])[facility] [place] [address] CO2 [Moles/Vol] 30 mmol/L Normal 23-31 [facility] Comment on above: Performed By: #### L [id number] ####Pharmacy Informatics Manager: VASHTI BAILEY ([phone])[facility] [place] [address] Creatinine [Mass/Vol] 3.38 mg/dL High 0.57-1.11 [facility] Comment on above: Performed By: #### L [id number] ####Pharmacy Informatics Manager: VASHTI BAILEY ([phone])[facility] ([facility])[address] [place] [address] GLOMERULAR FILTRATION RATE ML/MIN/1.73 SQ M.PREDICTED 13.5 mL/min/1.73m*2 Low >60.0 [facility] Comment on above: Result Comment: Calc ulation based on the Chronic Kidney Disease Epidemiology Collaboration (CKD-EPI) equation refit without adjustment for race Performed By: #### L [id number] ####Pharmacy Informatics Manager: VASHTI BAILEY ([phone])[facility] ([facility])[address] [place] [address] Glucose [Mass/Vol] 124 mg/dL High 82-115 [facility] Comment on above: Performed By: #### L [id number] ####Pharmacy Informatics Manager: VASHTI BAILEY ([phone])[facility])[address] [place] [address] Potassium [Moles/Vol] 3.8 mmol/L Normal 3.5-5.1 [facility] Comment on above: Result Comment: [facility] potassium values may be up to 0.5 mmol/L lower than serum values. Performed By: #### L [id number] ####Pharmacy Informatics Manager: VASHTI BAILEY ([phone])[facility])[address] [place] [address] Protein [Mass/Vol] 6.9 g/dL Normal 6.4-8.3 [facility] Comment on above: Performed By: #### L [id number] ####Pharmacy Informatics Manager: VASHTI BAILEY ([phone])[facility] ([facility])[address] [place] [address] Sodium [Moles/Vol] 133 mmol/L Low 136-145 [facility] Comment on above: Performed By: #### L [id number] ####Pharmacy Informatics Manager: VASHTI BAILEY ([phone])[facility])[address] [place] [address] Urea nitrogen [Mass/Vol] 74 mg/dL High 9-23 [facility] Comment on above: Performed By: #### L [id number] ####Pharmacy Informatics Manager: VASHTI BAILEY ([phone])[facility])[address] [place] [address] Comprehensive metabolic 1998 panelon 07-02-2025 Albumin [Mass/Vol] 2.7 g/dL Low 3.4 - 4.8 g/dL [facility] ALP [Catalytic activity/Vol] 141 U/L 40 - 150 U/L [facility] ALT [Catalytic activity/Vol] 26 U/L NINF - 30 U/L [facility] Anion gap [Moles/Vol] 12 mmol/L 3 - 13 mmol/L [facility] AST [Catalytic activity/Vol] 33 U/L NINF - 34 U/L [facility] Bilirubin [Mass/Vol] 0.6 mg/dL NINF - 1.2 mg/dL [facility] Calcium [Mass/Vol] 10.1 mg/dL High 8.8 - 10. 0 mg/dL [facility] Chloride [Moles/Vol] 91 mmol/L Low 98 - 10 7 mmol/L [facility] CO2 [Moles/Vol] 30 mmol/L 23 - 31 mmol/L [facility] Creatinine [Mass/Vol] 3.38 mg/dL High 0.57 - 1.11 mg/dL [facility] GFR/1.73 sq M.predicted (S/P/Bld) [Vol rate/Area] 13.5 mL/min Low - PINF [facility] Comment on above: Calculation based on the Chronic Kidney Disease Epidemiology Collaboration (CKD-EPI) equation refit without adjustment for race Glucose [Mass/Vol] 124 mg/dL High 82 - 115 mg/dL [facility] Interpretation and review of laboratory results Abnormal [facility] Potassium [Moles/Vol] 3.8 mmol/L 3.5 - 5.1 mmol/L [facility] Comment on above: Plasma potassium andrae ues may be up to 0.5 mmol/L lower than serum values. Protein [Mass/Vol] 6.9 g/dL 6.4 - 8.3 g/dL [facility] Sodium [Moles/Vol] 133 mmol/L Low 136 - 145 mmol/L [facility] Urea nitrogen [Mass/Vol] 74 mg/dL High 9 - 23 mg/dL [facility] ED Nursing Noteon 07-02-2025 ED Nursing Note Discharge discussed with transport at this time. Patient leaves in stable condition. IV removed, gauze and tape placed over insertion site. 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 Normal [facility] ED Provider Noteon ED Provider Note Normal [facility] Respiratory Cultureon 2024 RESPC Normal [facility] Comment on above: Performed By: #### M 100.2400, M100.1999 ####[facility] [id number] [place], [address] Gram Stainon 06-28-2025 GS [id number] Acceptable Specimen? Yes (<25 Epithelial cells per/lpf) Gram Stain 4+ Gram positive rods Rare Gram negative rods 2+ White Blood Cells No Epithelial cells Normal [facility] Comment on above: Performed By: #### M 100.2400, M100.2000 ####[facility] [id number] [place], [address] [id number] 06-21-2025 [id number] [facility] [address] [facility] [id number] [id number] Returning to Facility Normal [facility] [id number] [facility] [id number] Transport requested 5PM in [facility]. Awaiting time confirmation. [facility] [id number] Discharge med list transmitted to [facility] via [facility] per TCC request. [facility] CBC (HEMOGRAM)on 06-21-2025 Erythrocyte distribution width (RBC) [Ratio] 17.9 % High 11.5-15.0 [facility] Comment on above: Performed By: #### L [id number] ####Pharmacy Informatics Manager: NATALIE GARCIA ([phone])[facility] ([facility])[address] [place] [address] Hematocrit (Bld) [Volume fraction] 23.2 % Low 35.0-47.0 [facility] Comment on above: Performed By: #### L [id number] ####Pharmacy Informatics Manager: NATALIE GARCIA ([phone])[facility] ([facility])[address] [place] [address] Hemoglobin (Bld) [Mass/Vol] 7.2 g/dL Low 11.7-16.0 [facility] Comment on above: Performed By: #### L [id number] ####Pharmacy Informatics Manager: NATALIE GARCIA ([phone])[facility] ([facility])[address] MCH (RBC) [Entitic mass] 26.3 pg Normal 26.0-34.0 [facility] Comment on above: Performed By: #### L [id number] ####Pharmacy Informatics Manager: NATALIE GARCIA ([phone])[facility] ([facility])[address] MCHC 31.0 % Normal 30.5-36.0 [facility] Comment on above: Performed By: #### L [id number] ####Pharmacy Informatics Manager: NATALIE GARCIA ([phone])[facility] MONTENEGROLaurel ([facility])[address] MCV (RBC) [Entitic vol] 84.7 fL Normal 77.0-99.0 [facility] Comment on above: Performed By: #### L [id number] ####Pharmacy Informatics Manager: NATALIE GARCIA ([phone])[facility] REHMANMAGNUSN ([facility])[address] Platelet mean volume (Bld) [Entitic vol] 9.9 fL Normal 9.0-12.7 [facility] Comment on above: Performed By: #### L [id number] ####Pharmacy Informatics Manager: NATALIE GARCIA ([phone])[facility] REHMANMAGNUSN ([facility])[address] [place] [address] [place] Platelets (Bld) [#/Vol] 242 10*3/uL Normal 140-440 [facility] Comment on above: Performed By: #### L [id number] ####Pharmacy Informatics Manager: NATALIE GARCIA ([id number])[facility] BARBMAGNUSN ([facility])[address] RBC (Bld) [#/Vol] 2.74 10*6/uL Low 3.80-5.20 [facility] Comment on above: Performed By: #### L [id number] ####Pharmacy Informatics Manager: NATALIE GARCIA ([phone])[facility] TAMARELIAS ([facility])[address] WBC (Bld) [#/Vol] 7.0 10*3/uL Normal 3.6-10.7 [facility] Comment on above: Performed By: #### L [id number] ####Pharmacy Informatics Manager: NATALIE GARCIA ([phone])[facility]ITAL[facility]ENTEREL[facility] ([facility])[address] CBC panel Auto (Bld)on 06-21 Erythrocyte distribution width (RBC) [Ratio] 17.9 % High 11.5 - 15.0 % [facility] Hematocrit (Bld) [Volume fraction] 23.2 % Low 35.0 - 47.0 % [facility] Hemoglobin (Bld) [Mass/Vol] 7.2 g/dL Low 11.7 - 16.0 g/dL [facility] Interpretation and review of laboratory results Abnormal [facility] MCH (RBC) [Entitic mass] 26.3 pg 26.0 - 34.0 pg [facility] MCHC (RBC) [Mass/Vol] 31 % 30.5 - 36.0 % [facility] MCV (RBC) [Entitic vol] 84.7 fL 77.0 - 99.0 fL [facility] Platelet mean volume (Bld) [Entitic vol] 9.9 fL 9.0 - 12.7 fL [facility] Platelets (Bld) [#/Vol] 242 10*3/uL 140 - 440 10*3/uL [facility] RBC (Bld) [#/Vol] 2.74 10*6/uL Low 3.80 - 5.2 0 10*6/uL [facility] WBC (Bld) [#/Vol] 7 10*3/uL 3.6 - 10.7 10*3/uL [facility] COMPREHENSIVE METABOLIC PANE Florentin 06-21-2025 Albumin [Mass/Vol] 2.2 g/dL Low 3.4-4.8 [facility] Comment on above: Performed By: #### L AB103, LAB17 ####Pharmacy Informatics Manager: NATALIE GARCIA ([phone])[facility] ([facility])[address] [place] [address] [place] ALP [Catalytic activity/Vol] 113 U/L Normal 40-150 [facility] Comment on above: Performed By: #### L AB103, LAB17 ####Pharmacy Informatics Manager: NATALIE GARCIA ([phone])[facility] [place] ([facility])[address] [place] [address] [place] ALT [Catalytic activity/Vol] 8 U/L Normal <30 [facility] Comment on above: Performed By: #### L AB103, LAB17 ####Pharmacy Informatics Manager: NATALIE GARCIA ([phone])[facility] [place] ([facility])[address] Anion gap [Moles/Vol] 10 mmol/L Normal 3-13 [facility] Comment on above: Performed By: #### L AB103, LAB17 ####Pharmacy Informatics Manager: NATALIE GARCIA ([phone])[facility] [place] ([facility])[address] AST [Catalytic activity/Vol] 19 U/L Normal <34 [facility] Comment on above: Performed By: #### L AB103, LAB17 ####Pharmacy Informatics Manager: NATALIE GARCIA ([phone])[facility] [place] ([facility])[address] Bilirubin [Mass/Vol] 0.6 mg/dL Normal <1.2 [facility] Comment on above: Performed By: #### L AB103, LAB17 ####Pharmacy Informatics Manager: NATALIE GARCIA ([phone])[facility] [place] ([facility])[address] [place] [address] [place] Calcium [Mass/Vol] 8.7 mg/dL Low 8.8-10.0 [facility] Comment on above: Performed By: #### L AB103, LAB17 ####Pharmacy Informatics Manager: NATALIE GARCIA ([phone])[facility] [place] ([facility])[address] [place] [address] [place] Chloride [Moles/Vol] 98 mmol/L Normal 98-107 [facility] Comment on above: Performed By: #### L AB103, LAB17 ####Pharmacy Informatics Manager: NATALIE DENISETRICIA ([phone])[facility] ([facility])[address] CO2 [Moles/Vol] 27 mmol/L Normal 23-31 [facility] Comment on above: Performed By: #### L AB103, LAB17 ####Pharmacy Informatics Manager: NATALIE GARCIA ([phone])[facility] ([facility])[address] Creatinine [Mass/Vol] 2.06 mg/dL High 0.57-1.11 [facility] Comment on above: Performed By: #### L AB103, LAB17 ####Pharmacy Informatics Manager: NATALIE GARCIA ([phone])[facility] ([facility])[address] GLOMERULAR FILTRATION RATE ML/MIN/1.73 SQ M.PREDICTED 24.4 mL/min/1.73m*2 Low >60.0 [facility] Comment on above: Result Comment: Calc ulation based on the Chronic Kidney Disease Epidemiology Collaboration (CKD-EPI) equation refit without adjustment for race Performed By: #### L AB103, LAB17 ####Pharmacy Informatics Manager: NATALIE GARCIA ([phone])[facility] ([facility])[address] Glucose [Mass/Vol] 103 mg/dL Normal 82-115 [facility] Comment on above: Performed By: #### L AB103, LAB17 ####Pharmacy Informatics Manager: NATALIE GARCIA ([phone])[facility] ([facility])[address] Potassium [Moles/Vol] 3.5 mmol/L Normal 3.5-5.1 [facility] Comment on above: Result Comment: [facility] potassium values may be up to 0.5 mmol/L lower than serum values. Performed By: #### L AB103, LAB17 ####Pharmacy Informatics Manager: NATALIE CALVERTCER ([phone])[facility] [place] ([facility])[address] Protein [Mass/Vol] 6.4 g/dL Normal 6.4-8.3 [facility] Comment on above: Performed By: #### L AB103, LAB17 ####Pharmacy Informatics Manager: NATALIE GARCIA ([phone])[facility] ([facility])[address] Sodium [Moles/Vol] 135 mmol/L Low 136-145 [facility] Comment on above: Performed By: #### L AB103, LAB17 ####Pharmacy Informatics Manager: NATALIE GARCIA ([phone])[facility] ([facility])[address] Urea nitrogen [Mass/Vol] 22 mg/dL Normal 9-23 [facility] Comment on above: Performed By: #### L AB103, LAB17 ####Pharmacy Informatics Manager: NATALIE GARCIA ([phone])[facility] ([facility])[address] Comprehensive metabolic 1998 panelon 06-21-2025 Albumin [Mass/Vol] 2.2 g/dL Low 3.4 - 4.8 g/dL [facility] ALP [Catalytic activity/Vol] 113 U/L 40 - 150 U/L [facility] ALT [Catalytic activity/Vol] 8 U/L NINF - 30 U/L [facility] Anion gap [Moles/Vol] 10 mmol/L 3 - 13 mmol/L [facility] AST [Catalytic activity/Vol] 19 U/L NINF - 34 U/L [facility] Bilirubin [Mass/Vol] 0.6 mg/dL NINF - 1.2 mg/dL [facility] Calcium [Mass/Vol] 8.7 mg/dL Low 8.8 - 10. 0 mg/dL [facility] Chloride [Moles/Vol] 98 mmol/L 98 - 10 7 mmol/L [facility] CO2 [Moles/Vol] 27 mmol/L 23 - 31 mmol/L [facility] Creatinine [Mass/Vol] 2.06 mg/dL High 0.57 - 1.11 mg/dL [facility] GFR/1.73 sq M.predicted (S/P/Bld) [Vol rate/Area] 24.4 mL/min Low - PINF [facility] Glucose [Mass/Vol] 103 mg/dL 82 - 115 mg/dL [facility] Interpretation and review of laboratory results Abnormal [facility] Potassium [Moles/Vol] 3.5 mmol/L 3.5 - 5.1 mmol/L [facility] Protein [Mass/Vol] 6.4 g/dL 6.4 - 8.3 g/dL [facility] Sodium [Moles/Vol] 135 mmol/L Low 136 - 145 mmol/L [facility] Urea nitrogen [Mass/Vol] 22 mg/dL 9 - 23 mg/dL [facility] Laboratory - Chemistry and C hemistry - challengeon 06-21-2025 Glucose [Mass/Vol] 93 mg/dL 70 - 100 mg/dL [facility] Glucose [Mass/Vol] 85 mg/dL 70 - 100 mg/dL [facility] Glucose [Mass/Vol] 87 mg/dL 70 - 100 mg/dL [facility] Glucose [Mass/Vol] 75 mg/dL 70 - 100 mg/dL [facility] Magnesium [Mass/Vol] 1.9 mg/dL 1.6 - 2 .6 mg/dL [facility] MAGNESIUMon 06-21-2025 Magnesium [Mass/Vol] 1.9 mg/dL Normal 1.6-2.6 [facility] Comment on above: Result Comment: DORIAN Knight COMMENTS:Higher values can be expected in females during menses. Performed By: #### L AB103, LAB17 ####Pharmacy Informatics Manager: NATALIE GARCIA ([phone])[facility] ([facility])[address] [place] [address] Magnesium [Mass/Vol]on 06-21 Interpretation and review of laboratory results Normal [facility] No Panel Informationon 06-21 Interpretation and review of laboratory results Normal [facility] Interpretation and review of laboratory results Normal [facility] Interpretation and review of laboratory results Normal [facility] Interpretation and review of laboratory results Normal [facility] Nursing Noteon 06-21-2025 Nursing Note Normal [facility] Progress Noteon 06-21-2025 Progress Note Normal [facility] [place] [employer] Progress Note Normal [facility] [employer] RF Guidance for removal of t unneled CV catheteron 06-21-2025 [facility] Radiology Study observation (narrative) [facility] [id number] 06-20-2025 [id number] Normal [facility] CBC W Auto Differential pane l (Bld)on 06-20-2025 Basophils (Bld) [#/Vol] 0.1 10*3/uL 0.0 - 0.2 10*3/uL [facility] Basophils/100 WBC (Bld) 1 % 0.0 - 2.0 % [facility] Eosinophils (Bld) [#/Vol] 0.2 10*3/uL 0.0 - 0.5 10*3/uL [facility] Eosinophils/100 WBC (Bld) 4 % 0.0 - 6.0 % [facility] Erythrocyte distribution width (RBC) [Ratio] 18.5 % High 11.5 - 15.0 % [facility] Hematocrit (Bld) [Volume fraction] 25.2 % Low 35.0 - 47.0 % [facility] Hemoglobin (Bld) [Mass/Vol] 7.8 g/dL Low 11.7 - 16.0 g/dL [facility] Immature granulocytes (Bld) [#/Vol] 0 10*3/uL NINF - 0.1 10*3/uL [facility] Immature granulocytes/100 WBC (Bld) 0.5 % 0.0 - 2.0 % [facility] Interpretation and review of laboratory results Abnormal [facility] Lymphocytes (Bld) [#/Vol] 0.8 10*3/uL Low 1.0 - 4.3 10*3/uL [facility] Lymphocytes/100 WBC (Bld) 13.9 % Low 15.0 - 45.0 % [facility] MCH (RBC) [Entitic mass] 26.4 pg 26.0 - 34.0 pg [facility] MCHC (RBC) [Mass/Vol] 31 % 30.5 - 36.0 % [facility] MCV (RBC) [Entitic vol] 85.4 fL 77.0 - 99.0 fL [facility] Monocytes (Bld) [#/Vol] 0.7 10*3/uL 0.0 - 0.9 10*3/uL [facility] Monocytes/100 WBC (Bld) 11.6 % 5.0 - 13.0 % [facility] Neutrophils (Bld) [#/Vol] 4.2 10*3/uL 1.8 - 7.5 10*3/uL [facility] Neutrophils/100 WBC (Bld) 69 % 38.0 - 82.0 % [facility] Nucleated RBC/100 WBC (Bld) [Ratio] 0 % [facility] Platelet mean volume (Bld) [Entitic vol] 10 fL 9.0 - 12.7 fL [facility] Platelets (Bld) [#/Vol] 240 10*3/uL 140 - 440 10*3/uL [facility] RBC (Bld) [#/Vol] 2.95 10*6/uL Low 3.80 - 5.2 0 10*6/uL [facility] WBC (Bld) [#/Vol] 6.1 10*3/uL 3.6 - 10.7 10*3/uL [facility] CBC WITH AUTO DIFFERENTIALon 06-20-2025 Basophils (Bld) [#/Vol] 0.1 10*3/uL Normal 0.0-0.2 [facility] Comment on above: Performed By: #### L [id number] ####Pharmacy Informatics Manager: NATALIE GARCIA ([phone])[facility] ([facility])[address] Basophils/100 WBC (Bld) 1.0 % Normal 0.0-2.0 [facility] Comment on above: Performed By: #### L [id number] ####Pharmacy Informatics Manager: NATALIE GARCIA ([phone])[facility] ([facility])[address] Eosinophils (Bld) [#/Vol] 0.2 10*3/uL Normal 0.0-0.5 [facility] Comment on above: Performed By: #### L [id number] ####Pharmacy Informatics Manager: NATALIE DENISETRICIA ([phone])[facility] ([facility])[address] [place] [address] Eosinophils/100 WBC (Bld) 4.0 % Normal 0.0-6.0 [facility] Comment on above: Performed By: #### L [id number] ####Pharmacy Informatics Manager: NATALIE DENISETRICIA ([phone])[facility] ([facility])[address] Erythrocyte distribution width (RBC) [Ratio] 18.5 % High 11.5-15.0 [facility] Comment on above: Performed By: #### L [id number] ####Pharmacy Informatics Manager: NATALIE JOSE ([phone])[facility] ([facility])[address] [place] [address] Hematocrit (Bld) [Volume fraction] 25.2 % Low 35.0-47.0 [facility] Comment on above: Performed By: #### L [id number] ####Pharmacy Informatics Manager: NATALIE GARCIA ([phone])[facility] ([facility])[address] [place] [address] Hemoglobin (Bld) [Mass/Vol] 7.8 g/dL Low 11.7-16.0 [facility] Comment on above: Performed By: #### L [id number] ####Pharmacy Informatics Manager: NATALIE GARCIA ([phone])[facility] ([facility])[address] [place] [address] IMMATURE GRANS % 0.5 % Normal 0.0-2.0 [facility] Comment on above: Performed By: #### L [id number] ####Pharmacy Informatics Manager: NATALIE GARCIA ([phone])[facility] ([facility])[address] [place] [address] IMMATURE GRANS ABSOLUTE 0.0 10*3/uL Normal <0.1 [facility] Comment on above: Performed By: #### L [id number] ####Pharmacy Informatics Manager: NATALIE SIMONErlindaTRICIA ([phone])[facility]ITAL[facility] Miguel [facility]PITALLaurel (SBHLAB)[address] Lymphocytes (Bld) [#/Vol] 0.8 10*3/uL Low 1.0-4.3 [facility] Comment on above: Performed By: #### L [id number] ####Pharmacy Informatics Manager: NATALIE JOSE ([phone])[facility] (SBHLAB)[address] Lymphocytes/100 WBC (Bld) 13.9 % Low 15.0-45.0 [facility] Comment on above: Performed By: #### L [id number] ####Pharmacy Informatics Manager: NATALIE JOSE ([phone])[facility]OSPITALJosé Miguel DOWAGIAC (SBHLAB)[address] [place] [address] MCH (RBC) [Entitic mass] 26.4 pg Normal 26.0-34.0 [facility] Comment on above: Performed By: #### L [id number] ####Pharmacy Informatics Manager: NATALIE SIMONErlindaTRICIA ([phone])[facility] (SBHLAB)[address] [place] [address] MCHC 31.0 % Normal 30.5-36.0 [facility] Comment on above: Performed By: #### L [id number] ####Pharmacy Informatics Manager: NATALIE GARCIA ([phone])[facility] (SBHLAB)[address] [place] [address] MCV (RBC) [Entitic vol] 85.4 fL Normal 77.0-99.0 S [facility] Comment on above: Performed By: #### L [id number] ####Pharmacy Informatics Manager: NATALIE GARCIA ([phone])[facility] (SB[facility])[address] [place] [address] Monocytes (Bld) [#/Vol] 0.7 10*3/uL Normal 0.0-0.9 [facility] Comment on above: Performed By: #### L [id number] ####Pharmacy Informatics Manager: NATALIE GARCIA ([phone])[facility] (SBHLAB)[address] Monocytes/100 WBC (Bld) 11.6 % Normal 5.0-13.0 [facility] Comment on above: Performed By: #### L [id number] ####Pharmacy Informatics Manager: NATALIE GARCIA ([phone])[facility]A [place] (SBHLAB)[address] NEUTROPHILS ABSOLUTE 4.2 10*3/uL Normal 1.8-7.5 [facility] Comment on above: Performed By: #### L [id number] ####Pharmacy Informatics Manager: NATALIE GARCIA ([phone])[facility]A [place] (SBHLAB)[address] Neutrophils/100 WBC (Bld) 69.0 % Normal 38.0-82.0 [facility] Comment on above: Performed By: #### L [id number] ####Pharmacy Informatics Manager: NATALIE GARCIA ([phone])[facility]A [place] (SBHLAB)[address] NRBC 0.0 /100 WBCs Normal 0.0-2.0 [facility] Comment on above: Performed By: #### L [id number] ####Pharmacy Informatics Manager: NATALIE GARCIA ([phone])[facility]A [place] (SBHLAB)[address] Platelet mean volume (Bld) [Entitic vol] 10.0 fL Normal 9.0-12.7 [facility] Comment on above: Performed By: #### L [id number] ####Pharmacy Informatics Manager: NATALIE GARCIA ([phone])[facility]A [place] (SBHLAB)[address] Platelets (Bld) [#/Vol] 240 10*3/uL Normal 140-440 [facility] Comment on above: Performed By: #### L [id number] ####Pharmacy Informatics Manager: NATALIE CALVERTCER ([phone])[facility]ITALA [facility]ITALN (SBHLAB)[address] RBC (Bld) [#/Vol] 2.95 10*6/uL Low 3.80-5.20 [facility] Comment on above: Performed By: #### L [id number] ####Pharmacy Informatics Manager: NATALIE CALVERTCER ([phone])[facility]ITALA [facility]ITALN (SBHLAB)[address] WBC (Bld) [#/Vol] 6.1 10*3/uL Normal 3.6-10.7 [facility] Comment on above: Performed By: #### L [id number] ####Pharmacy Informatics Manager: NATALIE DENISETRICIA ([phone])[facility] (SBHLAB)[address] [place] [address] COMPREHENSIVE METABOLIC PANE Florentin 06-20-2025 Albumin [Mass/Vol] 2.3 g/dL Low 3.4-4.8 [facility] Comment on above: Performed By: #### L [id number] ####Pharmacy Informatics Manager: NATALIE GARCIA ([phone])[facility]ITALA [facility] (SBHLAB)[address] ALP [Catalytic activity/Vol] 123 U/L Normal 40-150 [facility] Comment on above: Performed By: #### L [id number] ####Pharmacy Informatics Manager: NATALIE GARCIA ([phone])[facility] (SBHLAB)[address] ALT [Catalytic activity/Vol] 9 U/L Normal <30 [facility] Comment on above: Performed By: #### L [id number] ####Pharmacy Informatics Manager: NATALIE GARCIA ([phone])[facility] (SBHLAB)[address] [place] [address] Anion gap [Moles/Vol] 12 mmol/L Normal 3-13 [facility] Comment on above: Performed By: #### L [id number] ####Pharmacy Informatics Manager: NATALIE GARCIA ([phone])[facility] (SBHLAB)[address] AST [Catalytic activity/Vol] 19 U/L Normal <34 [facility] Comment on above: Performed By: #### L [id number] ####Pharmacy Informatics Manager: NATALIE GARCIA ([phone])[facility]A [place] (SBHLAB)[address] Bilirubin [Mass/Vol] 0.6 mg/dL Normal <1.2 [facility] Comment on above: Performed By: #### L [id number] ####Pharmacy Informatics Manager: NATALIE GARCIA ([id number])[facility] [place] (SBHLAB)[address] Calcium [Mass/Vol] 9.1 mg/dL Normal 8.8-10.0 [facility] Comment on above: Performed By: #### L [id number] ####Pharmacy Informatics Manager: NATALIE GARCIA ([id number])[facility] [place] (SBHLAB)[address] Chloride [Moles/Vol] 97 mmol/L Low 98-107 [facility] Comment on above: Performed By: #### L [id number] ####Pharmacy Informatics Manager: NATALIE GARCIA ([phone])[facility] [place] (SBHLAB)[address] CO2 [Moles/Vol] 26 mmol/L Normal 23-31 [facility] Comment on above: Performed By: #### L [id number] ####Pharmacy Informatics Manager: NATALIE GARCIA ([phone])[facility] [place] (SBHLAB)[address] [place] [address] [place] Creatinine [Mass/Vol] 2.85 mg/dL High 0.57-1.11 [facility] Comment on above: Performed By: #### L [id number] ####Pharmacy Informatics Manager: NATALIE GARCIA ([phone])[facility]A [place] (SBHLAB)[address] GLOMERULAR FILTRATION RATE ML/MIN/1.73 SQ M.PREDICTED 16.5 mL/min/1.73m*2 Low >60.0 [facility] Comment on above: Result Comment: Calc ulation based on the Chronic Kidney Disease Epidemiology Collaboration (CKD-EPI) equation refit without adjustment for race Performed By: #### L [id number] ####Pharmacy Informatics Manager: NATALIE GARCIA ([id number])[facility] (HLAB)[address] Glucose [Mass/Vol] 129 mg/dL High 82-115 [facility] Comment on above: Performed By: #### L [id number] ####Pharmacy Informatics Manager: NATALIE GARCIA ([phone])[facility] ([facility])[address] [place] [address] Potassium [Moles/Vol] 3.9 mmol/L Normal 3.5-5.1 [facility] Comment on above: Result Comment: [facility] potassium values may be up to 0.5 mmol/L lower than serum values. Performed By: #### L [id number] ####Pharmacy Informatics Manager: NATALIE GARCIA ([phone])[facility] ([facility])[address] [place] [address] Protein [Mass/Vol] 6.5 g/dL Normal 6.4-8.3 [facility] Comment on above: Performed By: #### L [id number] ####Pharmacy Informatics Manager: NATALIE GARCIA ([phone])[facility] ([facility])[address] [place] [address] [place] Sodium [Moles/Vol] 135 mmol/L Low 136-145 [facility] Comment on above: Performed By: #### L [id number] ####Pharmacy Informatics Manager: NATALIE GARCIA ([phone])[facility] ([facility])[address] [place] [address] Urea nitrogen [Mass/Vol] 35 mg/dL High 9-23 [facility] Comment on above: Performed By: #### L [id number] ####Pharmacy Informatics Manager: NATALIE GARCIA ([phone])[facility] MELISSA (SBHLAB)[address] [place] [address] Comprehensive metabolic 1998 panelon 06-20-2025 Albumin [Mass/Vol] 2.3 g/dL Low 3.4 - 4.8 g/dL [facility] ALP [Catalytic activity/Vol] 123 U/L 40 - 150 U/L [facility] ALT [Catalytic activity/Vol] 9 U/L NINF - 30 U/L [facility] Anion gap [Moles/Vol] 12 mmol/L 3 - 13 mmol/L [facility] AST [Catalytic activity/Vol] 19 U/L NINF - 34 U/L [facility] Bilirubin [Mass/Vol] 0.6 mg/dL NINF - 1.2 mg/dL [facility] Calcium [Mass/Vol] 9.1 mg/dL 8.8 - 10. 0 mg/dL [facility] Chloride [Moles/Vol] 97 mmol/L Low 98 - 10 7 mmol/L [facility] CO2 [Moles/Vol] 26 mmol/L 23 - 31 mmol/L [facility] Creatinine [Mass/Vol] 2.85 mg/dL High 0.57 - 1.11 mg/dL [facility] GFR/1.73 sq M.predicted (S/P/Bld) [Vol rate/Area] 16.5 mL/min Low - PINF [facility] Glucose [Mass/Vol] 129 mg/dL High 82 - 115 mg/dL [facility] Interpretation and review of laboratory results Abnormal [facility] Potassium [Moles/Vol] 3.9 mmol/L 3.5 - 5.1 mmol/L [facility] Protein [Mass/Vol] 6.5 g/dL 6.4 - 8.3 g/dL [facility] Sodium [Moles/Vol] 135 mmol/L Low 136 - 145 mmol/L [facility] Urea nitrogen [Mass/Vol] 35 mg/dL High 9 - 23 mg/dL [facility] Laboratory - Chemistry and C hemistry - challengeon 06-20-2025 Glucose [Mass/Vol] 118 mg/dL High 70 - 100 mg/dL [facility] Glucose [Mass/Vol] 108 mg/dL High 70 - 100 mg/dL [facility] Glucose [Mass/Vol] 127 mg/dL High 70 - 100 mg/dL [facility] Glucose [Mass/Vol] 127 mg/dL High 70 - 100 mg/dL [facility] No Panel Informationon 06-20 Interpretation and review of laboratory results Abnormal [facility] Interpretation and review of laboratory results Abnormal [facility] Interpretation and review of laboratory results Abnormal [facility] Interpretation and review of laboratory results Abnormal [facility] Nursing Noteon 06-20-2025 Nursing Note Normal [facility] Progress Noteon 06-20-2025 Progress Note Normal [facility] Progress Note No SBT indicated due to PT vent dependent. Normal [facility] Progress Note Normal [facility] Progress Note Normal [facility] Normal [facility] Progress Note Normal [facility] [id number] 06-19-2025 [id number] Normal [facility] CBC W Auto Differential pane l (Bld)on 06-19-2025 Basophils (Bld) [#/Vol] 0.1 10*3/uL 0.0 - 0.2 10*3/uL [facility] Basophils/100 WBC (Bld) 0.9 % 0.0 - 2.0 % [facility] Eosinophils (Bld) [#/Vol] 0.2 10*3/uL 0.0 - 0.5 10*3/uL [facility] Eosinophils/100 WBC (Bld) 2.2 % 0.0 - 6.0 % [facility] Erythrocyte distribution width (RBC) [Ratio] 18.2 % High 11.5 - 15.0 % [facility] Hematocrit (Bld) [Volume fraction] 25 % Low 35.0 - 47.0 % [facility] Hemoglobin (Bld) [Mass/Vol] 7.8 g/dL Low 11.7 - 16.0 g/dL [facility] Immature granulocytes (Bld) [#/Vol] 0 10*3/uL NINF - 0.1 10*3/uL [facility] Immature granulocytes/100 WBC (Bld) 0.3 % 0.0 - 2.0 % [facility] Interpretation and review of laboratory results Abnormal [facility] Lymphocytes (Bld) [#/Vol] 1 10*3/uL 1.0 - 4.3 10*3/uL [facility] Lymphocytes/100 WBC (Bld) 13.6 % Low 15.0 - 45.0 % [facility] MCH (RBC) [Entitic mass] 26.8 pg 26.0 - 34.0 pg [facility] MCHC (RBC) [Mass/Vol] 31.2 % 30.5 - 36.0 % [facility] MCV (RBC) [Entitic vol] 85.9 fL 77.0 - 99.0 fL [facility] Monocytes (Bld) [#/Vol] 0.8 10*3/uL 0.0 - 0.9 10*3/uL [facility] Monocytes/100 WBC (Bld) 10.2 % 5.0 - 13.0 % [facility] Neutrophils (Bld) [#/Vol] 5.5 10*3/uL 1.8 - 7.5 10*3/uL [facility] [employer] [facility] Neutrophils/100 WBC (Bld) 72.8 % 38.0 - 82.0 % [facility] Nucleated RBC/100 WBC (Bld) [Ratio] 0 % [facility] Platelet mean volume (Bld) [Entitic vol] 9.9 fL 9.0 - 12.7 fL [facility] Platelets (Bld) [#/Vol] 250 10*3/uL 140 - 440 10*3/uL [facility] RBC (Bld) [#/Vol] 2.91 10*6/uL Low 3.80 - 5.2 0 10*6/uL [facility] [employer] WBC (Bld) [#/Vol] 7.6 10*3/uL 3.6 - 10.7 10*3/uL [facility] CBC WITH AUTO DIFFERENTIALon 06-19-2025 Basophils (Bld) [#/Vol] 0.1 10*3/uL Normal 0.0-0.2 [facility] Comment on above: Performed By: #### L [id number] ####Pharmacy Informatics Manager: NATALIE GARCIA ([phone])[facility] (SBAB)[address] [place] [address] Basophils/100 WBC (Bld) 0.9 % Normal 0.0-2.0 S [facility] Comment on above: Performed By: #### L [id number] ####Pharmacy Informatics Manager: NATALIE GARCIA ([phone])[facility]A [facility]ITALLa[facility] (SBHLAB)[address] Eosinophils (Bld) [#/Vol] 0.2 10*3/uL Normal 0.0-0.5 [facility] Comment on above: Performed By: #### L [id number] ####Pharmacy Informatics Manager: NATALIE GARCIA ([phone])[facility] (SBAB)[address] Eosinophils/100 WBC (Bld) 2.2 % Normal 0.0-6.0 [facility] Comment on above: Performed By: #### L [id number] ####Pharmacy Informatics Manager: NATALIE GARCIA ([phone])[facility] ([facility])[address] [place] [address] Erythrocyte distribution width (RBC) [Ratio] 18.2 % High 11.5-15.0 [facility] Comment on above: Performed By: #### L [id number] ####Pharmacy Informatics Manager: NATALIE GARCIA ([phone])[facility] ([facility])[address] [place] [address] Hematocrit (Bld) [Volume fraction] 25.0 % Low 35.0-47.0 [facility] Comment on above: Performed By: #### L [id number] ####Pharmacy Informatics Manager: NATALIE GARCIA ([phone])[facility] (SBAB)[address] [place] [address] Hemoglobin (Bld) [Mass/Vol] 7.8 g/dL Low 11.7-16.0 [facility] Comment on above: Performed By: #### L [id number] ####Pharmacy Informatics Manager: NATALIE GARCIA ([phone])[facility] (SBAB)[address] IMMATURE GRANS % 0.3 % Normal 0.0-2.0 [facility] Comment on above: Performed By: #### L [id number] ####Pharmacy Informatics Manager: NATALIE DENISETRICIA ([phone])[facility] (SBAB)[address] IMMATURE GRANS ABSOLUTE 0.0 10*3/uL Normal <0.1 [facility] Comment on above: Performed By: #### L [id number] ####Pharmacy Informatics Manager: NATALIE GARCIA ([phone])[facility] (SBAB)[address] Lymphocytes (Bld) [#/Vol] 1.0 10*3/uL Normal 1.0-4.3 [facility] Comment on above: Performed By: #### L [id number] ####Pharmacy Informatics Manager: NATALIE DENISETRICIA ([phone])[facility] ([facility])[address] [place] [address] Lymphocytes/100 WBC (Bld) 13.6 % Low 15.0-45.0 [facility] Comment on above: Performed By: #### L [id number] ####Pharmacy Informatics Manager: NATALIE GARCIA ([phone])[facility] ([facility])[address] [place] [address] MCH (RBC) [Entitic mass] 26.8 pg Normal 26.0-34.0 [facility] Comment on above: Performed By: #### L [id number] ####Pharmacy Informatics Manager: NATALIE DENISETRICIA ([phone])[facility] ([facility])[address] [place] [address] MCHC 31.2 % Normal 30.5-36.0 [facility] Comment on above: Performed By: #### L [id number] ####Pharmacy Informatics Manager: NATALIE GARCIA ([phone])[facility] ([facility])[address] [place] [address] MCV (RBC) [Entitic vol] 85.9 fL Normal 77.0-99.0 [facility] Comment on above: Performed By: #### L [id number] ####Pharmacy Informatics Manager: NATALIE GARCIA ([phone])[facility] [place] (SBHLAB)[address] Monocytes (Bld) [#/Vol] 0.8 10*3/uL Normal 0.0-0.9 [facility] Comment on above: Performed By: #### L [id number] ####Pharmacy Informatics Manager: NATALIE GARCIA ([id number])[facility] [place] (SBHLAB)[address] Monocytes/100 WBC (Bld) 10.2 % Normal 5.0-13.0 S [facility] Comment on above: Performed By: #### L [id number] ####Pharmacy Informatics Manager: NATALIE GARCIA ([phone])[facility] [place] (SBHLAB)[address] NEUTROPHILS ABSOLUTE 5.5 10*3/uL Normal 1.8-7.5 [facility] Comment on above: Performed By: #### L [id number] ####Pharmacy Informatics Manager: NATALIE GARCIA ([phone])[facility] [place] (SBHLAB)[address] Neutrophils/100 WBC (Bld) 72.8 % Normal 38.0-82.0 [facility] Comment on above: Performed By: #### L [id number] ####Pharmacy Informatics Manager: NATALIE GARCIA ([phone])[facility] [place] (SBHLAB)[address] NRBC 0.0 /100 WBCs Normal 0.0-2.0 [facility] Comment on above: Performed By: #### L [id number] ####Pharmacy Informatics Manager: NATALIE GARCIA ([phone])[facility] [place] (SBHLAB)[address] Platelet mean volume (Bld) [Entitic vol] 9.9 fL Normal 9.0-12.7 [facility] Comment on above: Performed By: #### L [id number] ####Pharmacy Informatics Manager: NATALIE GARCIA ([phone])[facility] (SBHLAB)[address] Platelets (Bld) [#/Vol] 250 10*3/uL Normal 140-440 [facility] Comment on above: Performed By: #### L [id number] ####Pharmacy Informatics Manager: NATALIE GARCIA ([phone])[facility] (SBHLAB)[address] RBC (Bld) [#/Vol] 2.91 10*6/uL Low 3.80-5.20 [facility] Comment on above: Performed By: #### L [id number] ####Pharmacy Informatics Manager: NATALIE GARCIA ([phone])[facility] (SB[facility]AB)[address] WBC (Bld) [#/Vol] 7.6 10*3/uL Normal 3.6-10.7 [facility] Comment on above: Performed By: #### L [id number] ####Pharmacy Informatics Manager: NATALIE GARCIA ([phone])[facility] (SBHLAB)[address] COMPREHENSIVE METABOLIC PANE Florentin 06-19-2025 Albumin [Mass/Vol] 2.5 g/dL Low 3.4-4.8 [facility] Comment on above: Performed By: #### L [id number] ####Pharmacy Informatics Manager: NATALIE GARCIA ([id number])[facility] (SBHLAB)[address] ALP [Catalytic activity/Vol] 129 U/L Normal 40-150 [facility] Comment on above: Performed By: #### L [id number] ####Pharmacy Informatics Manager: NATALIE GARCIA ([phone])[facility] (SBHLAB)[address] ALT [Catalytic activity/Vol] 10 U/L Normal <30 [facility] Comment on above: Performed By: #### L [id number] ####Pharmacy Informatics Manager: NATALIE GARCIA ([phone])[facility] (SBHLAB)[address] Anion gap [Moles/Vol] 9 mmol/L Normal 3-13 [facility] Comment on above: Performed By: #### L [id number] ####Pharmacy Informatics Manager: NATALIE GARCIA ([phone])[facility] (SBHLAB)[address] AST [Catalytic activity/Vol] 24 U/L Normal <34 [facility] Comment on above: Performed By: #### L [id number] ####Pharmacy Informatics Manager: NATALIE GARCIA ([phone])[facility] ([facility] Bilirubin [Mass/Vol] 0.7 mg/dL Normal <1.2 [facility] Comment on above: Performed By: #### L [id number] ####Pharmacy Informatics Manager: NATALIE GARCIA ([phone])[facility] (HLAB)[address] Calcium [Mass/Vol] 9.1 mg/dL Normal 8.8-10.0 [facility] Comment on above: Performed By: #### L [id number] ####Pharmacy Informatics Manager: NATALIE GARCIA ([id number])[facility] (HLAB)[address] Chloride [Moles/Vol] 99 mmol/L Normal 98-107 [facility] Comment on above: Performed By: #### L [id number] ####Pharmacy Informatics Manager: NATALIE GARCIA ([phone])[facility] (HLAB)[address] [place] [address] [place] CO2 [Moles/Vol] 27 mmol/L Normal 23-31 [facility] Comment on above: Performed By: #### L [id number] ####Pharmacy Informatics Manager: NATALIE GARCIA ([phone])[facility]ITALJosé Miguel [facility] (SBHLAB)[address] Creatinine [Mass/Vol] 2.33 mg/dL High 0.57-1.11 [facility] Comment on above: Performed By: #### L [id number] ####Pharmacy Informatics Manager: NATALIE GARCIA ([id number])[facility] [place] (SBHLAB)[address] [place] [address] [place] GLOMERULAR FILTRATION RATE ML/MIN/1.73 SQ M.PREDICTED 21.1 mL/min/1.73m*2 Low >60.0 [facility] Comment on above: Result Comment: Calc ulation based on the Chronic Kidney Disease Epidemiology Collaboration (CKD-EPI) equation refit without adjustment for race Performed By: #### L [id number] ####Pharmacy Informatics Manager: NATALIE GARCIA ([phone])[facility]NUSN (SBHLAB)[address] Glucose [Mass/Vol] 126 mg/dL High 82-115 [facility] Comment on above: Performed By: #### L [id number] ####Pharmacy Informatics Manager: NATALIE GARCIA ([phone])[facility] (HLAB)[address] Potassium [Moles/Vol] 4.0 mmol/L Normal 3.5-5.1 [facility] Comment on above: Result Comment: [facility] potassium values may be up to 0.5 mmol/L lower than serum values. Performed By: #### L [id number] ####Pharmacy Informatics Manager: NATALIE GARCIA ([phone])[facility] BAR[facility]AGNUSN (SBHLAB)[address] [place] [address] [place] Protein [Mass/Vol] 6.8 g/dL Normal 6.4-8.3 [facility] Comment on above: Performed By: #### L [id number] ####Pharmacy Informatics Manager: NATALIE GARCIA ([phone])[facility] (SBHLAB)[address] [place] [address] [place] Sodium [Moles/Vol] 135 mmol/L Low 136-145 [facility] Comment on above: Performed By: #### L [id number] ####Pharmacy Informatics Manager: NATALIE GARCIA ([id number])[facility] (SBHLAB)[address] Urea nitrogen [Mass/Vol] 23 mg/dL Normal - [facility] Comment on above: Performed By: #### L [id number] ####Pharmacy Informatics Manager: NATALIE DENISETRICIA ([phone])[facility] ([facility])[address] Comprehensive metabolic 1998 panelon 06-19-2025 Albumin [Mass/Vol] 2.5 g/dL Low 3.4 - 4.8 g/dL [facility] ALP [Catalytic activity/Vol] 129 U/L 40 - 150 U/L [facility] ALT [Catalytic activity/Vol] 10 U/L NINF - 30 U/L [facility] Anion gap [Moles/Vol] 9 mmol/L 3 - 13 mmol/L [facility] AST [Catalytic activity/Vol] 24 U/L NINF - 34 U/L [facility] Bilirubin [Mass/Vol] 0.7 mg/dL NINF - 1.2 mg/dL [facility] Calcium [Mass/Vol] 9.1 mg/dL 8.8 - 10. 0 mg/dL [facility] Chloride [Moles/Vol] 99 mmol/L 98 - 10 7 mmol/L [facility] CO2 [Moles/Vol] 27 mmol/L 23 - 31 mmol/L [facility] Creatinine [Mass/Vol] 2.33 mg/dL High 0.57 - 1.11 mg/dL [facility] GFR/1.73 sq M.predicted (S/P/Bld) [Vol rate/Area] 21.1 mL/min Low - PINF [facility] Glucose [Mass/Vol] 126 mg/dL High 82 - 115 mg/dL [facility] Interpretation and review of laboratory results Abnormal [facility] Potassium [Moles/Vol] 4 mmol/L 3.5 - 5.1 mmol/L [facility] Protein [Mass/Vol] 6.8 g/dL 6.4 - 8.3 g/dL [facility] Sodium [Moles/Vol] 135 mmol/L Low 136 - 145 mmol/L [facility] Urea nitrogen [Mass/Vol] 23 mg/dL 9 - 23 mg/dL [facility] Laboratory - Chemistry and C hemistry - challengeon 06-19-2025 Glucose [Mass/Vol] 142 mg/dL High 70 - 100 mg/dL [facility] Glucose [Mass/Vol] 126 mg/dL High 70 - 100 mg/dL [facility] Glucose [Mass/Vol] 146 mg/dL High 70 - 100 mg/dL [facility] Glucose [Mass/Vol] 132 mg/dL High 70 - 100 mg/dL [facility] Glucose [Mass/Vol] 125 mg/dL High 70 - 100 mg/dL [facility] No Panel Informationon 06-19 Interpretation and review of laboratory results Abnormal [facility] Interpretation and review of laboratory results Abnormal [facility] Interpretation and review of laboratory results Abnormal [facility] Interpretation and review of laboratory results Abnormal [facility] Interpretation and review of laboratory results Abnormal [facility] Progress Noteon 06-19-2025 Progress Note [facility] Progress Note [facility] Progress Note [facility] Progress Note Normal [facility] Progress Note Normal [facility] [id number] 06-18-2025 [id number] Normal [facility] CBC W Auto Differential pane l (Bld)on 06-18-2025 Basophils (Bld) [#/Vol] 0.1 10*3/uL 0.0 - 0.2 10*3/uL [facility] Basophils/100 WBC (Bld) 1 % 0.0 - 2.0 % [facility] Eosinophils (Bld) [#/Vol] 0.2 10*3/uL 0.0 - 0.5 10*3/uL [facility] Eosinophils/100 WBC (Bld) 3.5 % 0.0 - 6.0 % [facility] Erythrocyte distribution width (RBC) [Ratio] 18.2 % High 11.5 - 15.0 % [facility] Hematocrit (Bld) [Volume fraction] 24.4 % Low 35.0 - 47.0 % [facility] Hemoglobin (Bld) [Mass/Vol] 7.6 g/dL Low 11.7 - 16.0 g/dL [facility] [employer] Immature granulocytes (Bld) [#/Vol] 0 10*3/uL NINF - 0.1 10*3/uL [facility] Immature granulocytes/100 WBC (Bld) 0.3 % 0.0 - 2.0 % [facility] Interpretation and review of laboratory results Abnormal [facility] Lymphocytes (Bld) [#/Vol] 0.9 10*3/uL Low 1.0 - 4.3 10*3/uL [facility] Lymphocytes/100 WBC (Bld) 14.9 % Low 15.0 - 45.0 % [facility] MCH (RBC) [Entitic mass] 26.7 pg 26.0 - 34.0 pg [facility] MCHC (RBC) [Mass/Vol] 31.1 % 30.5 - 36.0 % [facility] MCV (RBC) [Entitic vol] 85.6 fL 77.0 - 99.0 fL [facility] Monocytes (Bld) [#/Vol] 0.6 10*3/uL 0.0 - 0.9 10*3/uL [facility] Monocytes/100 WBC (Bld) 9.9 % 5.0 - 13.0 % [facility] Neutrophils (Bld) [#/Vol] 4.4 10*3/uL 1.8 - 7.5 10*3/uL [facility] Neutrophils/100 WBC (Bld) 70.4 % 38.0 - 82.0 % [facility] Nucleated RBC/100 WBC (Bld) [Ratio] 0 % [facility] Platelet mean volume (Bld) [Entitic vol] 10.4 fL 9.0 - 12.7 fL [facility] Platelets (Bld) [#/Vol] 237 10*3/uL 140 - 440 10*3/uL [facility] RBC (Bld) [#/Vol] 2.85 10*6/uL Low 3.80 - 5.2 0 10*6/uL [facility] WBC (Bld) [#/Vol] 6.3 10*3/uL 3.6 - 10.7 10*3/uL [facility] CBC WITH AUTO DIFFERENTIALon 06-18-2025 Basophils (Bld) [#/Vol] 0.1 10*3/uL Normal 0.0-0.2 [facility] Comment on above: Performed By: #### L [id number] ####Pharmacy Informatics Manager: NATALIE GARCIA ([phone])[facility] (SBHLAB)[address] Basophils/100 WBC (Bld) 1.0 % Normal 0.0-2.0 [facility] Comment on above: Performed By: #### L [id number] ####Pharmacy Informatics Manager: NATALIE GARCIA ([phone])[facility] (SBHLAB)[address] Eosinophils (Bld) [#/Vol] 0.2 10*3/uL Normal 0.0-0.5 [facility] Comment on above: Performed By: #### L [id number] ####Pharmacy Informatics Manager: NATALIE GARCIA ([phone])[facility] (SB[facility])[address] Eosinophils/100 WBC (Bld) 3.5 % Normal 0.0-6.0 [facility] Comment on above: Performed By: #### L [id number] ####Pharmacy Informatics Manager: NATALIE GARCIA ([phone])[facility] (SBHLAB)[address] Erythrocyte distribution width (RBC) [Ratio] 18.2 % High 11.5-15.0 [facility] Comment on above: Performed By: #### L [id number] ####Pharmacy Informatics Manager: NATALIE GARCIA ([phone])[facility] (SBHLAB)[address] Hematocrit (Bld) [Volume fraction] 24.4 % Low 35.0-47.0 [facility] Comment on above: Performed By: #### L [id number] ####Pharmacy Informatics Manager: NATALIE GARCIA ([id number])[facility] (SB[facility])[address] Hemoglobin (Bld) [Mass/Vol] 7.6 g/dL Low 11.7-16.0 [facility] Comment on above: Performed By: #### L [id number] ####Pharmacy Informatics Manager: NATALIE GARCIA ([phone])[facility] ([facility])[address] IMMATURE GRANS % 0.3 % Normal 0.0-2.0 [facility] Comment on above: Performed By: #### L [id number] ####Pharmacy Informatics Manager: NATALIE GARCIA ([phone])[facility] ([facility] [place] [address] IMMATURE GRANS ABSOLUTE 0.0 10*3/uL Normal <0.1 [facility] Comment on above: Performed By: #### L [id number] ####Pharmacy Informatics Manager: NATALIE GARCIA ([phone])[facility] ([facility])[address] Lymphocytes (Bld) [#/Vol] 0.9 10*3/uL Low 1.0-4.3 [facility] Comment on above: Performed By: #### L [id number] ####Pharmacy Informatics Manager: NATALIE GARCIA ([phone])[facility] (SB[facility])[address] [place] [address] Lymphocytes/100 WBC (Bld) 14.9 % Low 15.0-45.0 [facility] Comment on above: Performed By: #### L [id number] ####Pharmacy Informatics Manager: NATALIE GARCIA ([phone])[facility] ([facility])[address] MCH (RBC) [Entitic mass] 26.7 pg Normal 26.0-34.0 [facility] Comment on above: Performed By: #### L [id number] ####Pharmacy Informatics Manager: NATALIE GARCIA ([phone])[facility] ([facility])[address] MCHC 31.1 % Normal 30.5-36.0 [facility] Comment on above: Performed By: #### L [id number] ####Pharmacy Informatics Manager: NATALIE DENISETRICIA ([phone])[facility] ([facility])[address] MCV (RBC) [Entitic vol] 85.6 fL Normal 77.0-99.0 [facility] Comment on above: Performed By: #### L [id number] ####Pharmacy Informatics Manager: NATALIE GARCIA ([phone])[facility] ([facility])[address] Monocytes (Bld) [#/Vol] 0.6 10*3/uL Normal 0.0-0.9 [facility] Comment on above: Performed By: #### L [id number] ####Pharmacy Informatics Manager: NATALIE DENISETRICIA ([phone])[facility] [place] ([facility])[address] Monocytes/100 WBC (Bld) 9.9 % Normal 5.0-13.0 [facility] Comment on above: Performed By: #### L [id number] ####Pharmacy Informatics Manager: NATALIE DENISETRICIA ([phone])[facility] ([facility])[address] NEUTROPHILS ABSOLUTE 4.4 10*3/uL Normal 1.8-7.5 [facility] Comment on above: Performed By: #### L [id number] ####Pharmacy Informatics Manager: NATAILE GARCIA ([phone])[facility] [place] ([facility])[address] Neutrophils/100 WBC (Bld) 70.4 % Normal 38.0-82.0 [facility] Comment on above: Performed By: #### L [id number] ####Pharmacy Informatics Manager: NATALIE GARCIA ([phone])[facility] [place] ([facility])[address] NRBC 0.0 /100 WBCs Normal 0.0-2.0 [facility] Comment on above: Performed By: #### L [id number] ####Pharmacy Informatics Manager: NATALIE GARCIA ([phone])[facility] ([facility])[address] Platelet mean volume (Bld) [Entitic vol] 10.4 fL Normal 9.0-12.7 [facility] Comment on above: Performed By: #### L [id number] ####Pharmacy Informatics Manager: NATALIE GARCIA ([phone])[facility] [place] ([facility])[address] Platelets (Bld) [#/Vol] 237 10*3/uL Normal 140-440 [facility] Comment on above: Performed By: #### L [id number] ####Pharmacy Informatics Manager: NATALIE GARCIA ([phone])[facility] [place] ([facility])[address] RBC (Bld) [#/Vol] 2.85 10*6/uL Low 3.80-5.20 [facility] Comment on above: Performed By: #### L [id number] ####Pharmacy Informatics Manager: NATALIE GARCIA ([phone])[facility] [place] ([facility])[address] WBC (Bld) [#/Vol] 6.3 10*3/uL Normal 3.6-10.7 [facility] Comment on above: Performed By: #### L [id number] ####Pharmacy Informatics Manager: NATALIE GARCIA ([phone])[facility] [place] ([facility])[address] COMPREHENSIVE METABOLIC PANE Florentin 06-18-2025 Albumin [Mass/Vol] 2.1 g/dL Low 3.4-4.8 [facility] Comment on above: Performed By: #### L [id number] ####Pharmacy Informatics Manager: NATALIE GARCIA ([phone])[facility] ([facility])[address] ALP [Catalytic activity/Vol] 122 U/L Normal 40-150 [facility] Comment on above: Performed By: #### L [id number] ####Pharmacy Informatics Manager: NATALIE GARCIA ([phone])[facility] [place] ([facility])[address] ALT [Catalytic activity/Vol] 13 U/L Normal <30 [facility] Comment on above: Performed By: #### L [id number] ####Pharmacy Informatics Manager: NATALIE GARCIA ([phone])[facility] [place] ([facility])[address] Anion gap [Moles/Vol] 11 mmol/L Normal 3-13 [facility] Comment on above: Performed By: #### L [id number] ####Pharmacy Informatics Manager: NATALIE GARCIA ([id number])[facility] [place] ([facility])[address] AST [Catalytic activity/Vol] 24 U/L Normal <34 [facility] Comment on above: Performed By: #### L [id number] ####Pharmacy Informatics Manager: NATALIE GARCIA ([phone])[facility] [place] ([facility])[address] Bilirubin [Mass/Vol] 0.6 mg/dL Normal <1.2 [facility] Comment on above: Performed By: #### L [id number] ####Pharmacy Informatics Manager: NATALIE GARCIA ([phone])[facility] [place] ([facility])[address] Calcium [Mass/Vol] 8.9 mg/dL Normal 8.8-10.0 [facility] Comment on above: Performed By: #### L [id number] ####Pharmacy Informatics Manager: NATALIE GARCIA ([phone])[facility] [place] ([facility])[address] [place] [address] [place] Chloride [Moles/Vol] 98 mmol/L Normal 98-107 [facility] Comment on above: Performed By: #### L [id number] ####Pharmacy Informatics Manager: NATALIE GARCIA ([phone])[facility] ([facility])[address] CO2 [Moles/Vol] 24 mmol/L Normal 23-31 [facility] Comment on above: Performed By: #### L [id number] ####Pharmacy Informatics Manager: NATALIE GARCIA ([phone])[facility] ([facility])[address] Creatinine [Mass/Vol] 3.41 mg/dL High 0.57-1.11 [facility] Comment on above: Performed By: #### L [id number] ####Pharmacy Informatics Manager: NATALIE GARCIA ([phone])[facility] (HLAB)[address] [place] [address] [place] GLOMERULAR FILTRATION RATE ML/MIN/1.73 SQ M.PREDICTED 13.3 mL/min/1.73m*2 Low >60.0 [facility] Comment on above: Result Comment: Calc ulation based on the Chronic Kidney Disease Epidemiology Collaboration (CKD-EPI) equation refit without adjustment for race Performed By: #### L [id number] ####Pharmacy Informatics Manager: NATALIE GARCIA ([phone])[facility] (HLAB)[address] [place] [address] [place] Glucose [Mass/Vol] 119 mg/dL High 82-115 [facility] Comment on above: Performed By: #### L [id number] ####Pharmacy Informatics Manager: NATALIE GARCIA ([phone])[facility] ([facility])[address] [place] [address] [place] Potassium [Moles/Vol] 4.4 mmol/L Normal 3.5-5.1 [facility] Comment on above: Result Comment: [facility] potassium values may be up to 0.5 mmol/L lower than serum values. Performed By: #### L [id number] ####Pharmacy Informatics Manager: NATALIE GARCIA ([phone])[facility] ([facility])[address] Protein [Mass/Vol] 6.2 g/dL Low 6.4-8.3 [facility] Comment on above: Performed By: #### L [id number] ####Pharmacy Informatics Manager: NATALIE GARCIA ([phone])[facility] ([facility])[address] Sodium [Moles/Vol] 133 mmol/L Low 136-145 [facility] Comment on above: Performed By: #### L [id number] ####Pharmacy Informatics Manager: NATALIE GARCIA ([phone])[facility] ([facility])[address] Urea nitrogen [Mass/Vol] 46 mg/dL High 9-23 [facility] Comment on above: Performed By: #### L [id number] ####Pharmacy Informatics Manager: NATALIE GARCIA ([phone])[facility] ([facility])[address] Comprehensive metabolic 1998 panelon 06-18-2025 Albumin [Mass/Vol] 2.1 g/dL Low 3.4 - 4.8 g/dL [facility] ALP [Catalytic activity/Vol] 122 U/L 40 - 150 U/L [facility] ALT [Catalytic activity/Vol] 13 U/L NINF - 30 U/L [facility] Anion gap [Moles/Vol] 11 mmol/L 3 - 13 mmol/L [facility] AST [Catalytic activity/Vol] 24 U/L NINF - 34 U/L [facility] Bilirubin [Mass/Vol] 0.6 mg/dL NINF - 1.2 mg/dL [facility] Calcium [Mass/Vol] 8.9 mg/dL 8.8 - 10. 0 mg/dL [facility] Chloride [Moles/Vol] 98 mmol/L 98 - 10 7 mmol/L [facility] CO2 [Moles/Vol] 24 mmol/L 23 - 31 mmol/L [facility] Creatinine [Mass/Vol] 3.41 mg/dL High 0.57 - 1.11 mg/dL [facility] GFR/1.73 sq M.predicted (S/P/Bld) [Vol rate/Area] 13.3 mL/min Low - PINF [facility] Glucose [Mass/Vol] 119 mg/dL High 82 - 115 mg/dL [facility] Interpretation and review of laboratory results Abnormal [facility] Potassium [Moles/Vol] 4.4 mmol/L 3.5 - 5.1 mmol/L [facility] Protein [Mass/Vol] 6.2 g/dL Low 6.4 - 8.3 g/dL [facility] Sodium [Moles/Vol] 133 mmol/L Low 136 - 145 mmol/L [facility] Urea nitrogen [Mass/Vol] 46 mg/dL High 9 - 23 mg/dL [facility] Laboratory - Chemistry and C hemistry - challengeon 06-18-2025 Glucose [Mass/Vol] 101 mg/dL High 70 - 100 mg/dL [facility] Glucose [Mass/Vol] 98 mg/dL 70 - 100 mg/dL [facility] Glucose [Mass/Vol] 123 mg/dL High 70 - 100 mg/dL [facility] No Panel Informationon 06-18 Interpretation and review of laboratory results Abnormal [facility] Interpretation and review of laboratory results Normal [facility] Interpretation and review of laboratory results Abnormal [facility] Nursing Noteon 06-18-2025 Nursing Note Normal [facility] Progress Noteon 06-18-2025 Progress Note [facility] Progress [facility] Progress Note Normal [facility] Progress Note Normal [facility] Progress Note [facility] CBC W Auto Differential pane l (Bld)on 06-17-2025 Basophils (Bld) [#/Vol] 0.1 10*3/uL 0.0 - 0.2 10*3/uL [facility] Basophils/100 WBC (Bld) 0.8 % 0.0 - 2.0 % [facility] Eosinophils (Bld) [#/Vol] 0.2 10*3/uL 0.0 - 0.5 10*3/uL [facility] Eosinophils/100 WBC (Bld) 1.9 % 0.0 - 6.0 % [facility] Erythrocyte distribution width (RBC) [Ratio] 17.8 % High 11.5 - 15.0 % [facility] Hematocrit (Bld) [Volume fraction] 26.6 % Low 35.0 - 47.0 % [facility] Hemoglobin (Bld) [Mass/Vol] 8.4 g/dL Low 11.7 - 16.0 g/dL [facility] Immature granulocytes (Bld) [#/Vol] 0 10*3/uL NINF - 0.1 10*3/uL [facility] Immature granulocytes/100 WBC (Bld) 0.4 % 0.0 - 2.0 % [facility] Interpretation and review of laboratory results Abnormal [facility] Lymphocytes (Bld) [#/Vol] 1.2 10*3/uL 1.0 - 4.3 10*3/uL [facility] Lymphocytes/100 WBC (Bld) 15.9 % 15.0 - 45.0 % [facility] MCH (RBC) [Entitic mass] 26.7 pg 26.0 - 34.0 pg [facility] MCHC (RBC) [Mass/Vol] 31.6 % 30.5 - 36.0 % [facility] MCV (RBC) [Entitic vol] 84.4 fL 77.0 - 99.0 fL [facility] Monocytes (Bld) [#/Vol] 0.8 10*3/uL 0.0 - 0.9 10*3/uL [facility] Monocytes/100 WBC (Bld) 9.6 % 5.0 - 13.0 % [facility] Neutrophils (Bld) [#/Vol] 5.6 10*3/uL 1.8 - 7.5 10*3/uL [facility] Neutrophils/100 WBC (Bld) 71.4 % 38.0 - 82.0 % [facility] Nucleated RBC/100 WBC (Bld) [Ratio] 0 % [facility] Platelet mean volume (Bld) [Entitic vol] 9.6 fL 9.0 - 12.7 fL [facility] Platelets (Bld) [#/Vol] 230 10*3/uL 140 - 440 10*3/uL [facility] RBC (Bld) [#/Vol] 3.15 10*6/uL Low 3.80 - 5.2 0 10*6/uL [facility] WBC (Bld) [#/Vol] 7.8 10*3/uL 3.6 - 10.7 10*3/uL [facility] CBC WITH AUTO DIFFERENTIALon 06-17-2025 Basophils (Bld) [#/Vol] 0.1 10*3/uL Normal 0.0-0.2 [facility] Comment on above: Performed By: #### L [id number] ####Pharmacy Informatics Manager: NATALIE GARCIA ([phone])[facility] [place] ([facility])[address] Basophils/100 WBC (Bld) 0.8 % Normal 0.0-2.0 [facility] Comment on above: Performed By: #### L [id number] ####Pharmacy Informatics Manager: NATALIE GARCIA ([phone])[facility] (SB[facility])[address] [place] [address] Eosinophils (Bld) [#/Vol] 0.2 10*3/uL Normal 0.0-0.5 [facility] Comment on above: Performed By: #### L [id number] ####Pharmacy Informatics Manager: NATALIE GARCIA ([phone])[facility] (SB[facility])[address] [place] [address] Eosinophils/100 WBC (Bld) 1.9 % Normal 0.0-6.0 [facility] Comment on above: Performed By: #### L [id number] ####Pharmacy Informatics Manager: NATALIE GARCIA ([phone])[facility] (SB[facility])[address] [place] [address] Erythrocyte distribution width (RBC) [Ratio] 17.8 % High 11.5-15.0 [facility] Comment on above: Performed By: #### L [id number] ####Pharmacy Informatics Manager: NATALIE GARCIA ([phone])[facility] ([facility])[address] [place] [address] Hematocrit (Bld) [Volume fraction] 26.6 % Low 35.0-47.0 [facility] Comment on above: Performed By: #### L [id number] ####Pharmacy Informatics Manager: NATALIE CALVERTCER ([phone])[facility] (SB[facility])[address] Hemoglobin (Bld) [Mass/Vol] 8.4 g/dL Low 11.7-16.0 [facility] Comment on above: Performed By: #### L [id number] ####Pharmacy Informatics Manager: NATALIE GARCIA ([phone])[facility] (SB[facility])[address] IMMATURE GRANS % 0.4 % Normal 0.0-2.0 [facility] Comment on above: Performed By: #### L [id number] ####Pharmacy Informatics Manager: NATALIE DENISETRICIA ([phone])[facility] ([facility])[address] [place] [address] IMMATURE GRANS ABSOLUTE 0.0 10*3/uL Normal <0.1 [facility] Comment on above: Performed By: #### L [id number] ####Pharmacy Informatics Manager: NATALIE GARCIA ([phone])[facility] ([facility])[address] Lymphocytes (Bld) [#/Vol] 1.2 10*3/uL Normal 1.0-4.3 [facility] Comment on above: Performed By: #### L [id number] ####Pharmacy Informatics Manager: NATALIE GARCIA ([phone])[facility] ([facility])[address] Lymphocytes/100 WBC (Bld) 15.9 % Normal 15.0-45.0 [facility] Comment on above: Performed By: #### L [id number] ####Pharmacy Informatics Manager: NATALIE GARCIA ([phone])[facility] (SBAB)[address] MCH (RBC) [Entitic mass] 26.7 pg Normal 26.0-34.0 [facility] Comment on above: Performed By: #### L [id number] ####Pharmacy Informatics Manager: NATALIE GARCIA ([phone])[facility] (SB[facility])[address] MCHC 31.6 % Normal 30.5-36.0 [facility] Comment on above: Performed By: #### L [id number] ####Pharmacy Informatics Manager: NATALIE DENISETRICIA ([phone])[facility] [place] (SB[facility]AB)[address] MCV (RBC) [Entitic vol] 84.4 fL Normal 77.0-99.0 [facility] Comment on above: Performed By: #### L [id number] ####Pharmacy Informatics Manager: NATALIE DENISETRICIA ([phone])[facility] ([facility])[address] Monocytes (Bld) [#/Vol] 0.8 10*3/uL Normal 0.0-0.9 [facility] Comment on above: Performed By: #### L [id number] ####Pharmacy Informatics Manager: NATALIE DENISETRICIA ([phone])[facility] [place] (SB[facility])[address] Monocytes/100 WBC (Bld) 9.6 % Normal 5.0-13.0 [facility] Comment on above: Performed By: #### L [id number] ####Pharmacy Informatics Manager: NATALIE GARCIA ([phone])[facility] (SB[facility])[address] NEUTROPHILS ABSOLUTE 5.6 10*3/uL Normal 1.8-7.5 [facility] Comment on above: Performed By: #### L [id number] ####Pharmacy Informatics Manager: NATALIE GARCIA ([phone])[facility] [place] ([facility])[address] Neutrophils/100 WBC (Bld) 71.4 % Normal 38.0-82.0 [facility] Comment on above: Performed By: #### L [id number] ####Pharmacy Informatics Manager: NATALIE GARCIA ([phone])[facility] ([facility])[address] NRBC 0.0 /100 WBCs Normal 0.0-2.0 [facility] Comment on above: Performed By: #### L [id number] ####Pharmacy Informatics Manager: NATALIE JOSE ([phone])[facility] (SB[facility]AB)[address] Platelet mean volume (Bld) [Entitic vol] 9.6 fL Normal 9.0-12.7 [facility] Comment on above: Performed By: #### L [id number] ####Pharmacy Informatics Manager: NATALIE JOSE ([phone])[facility] (SBHLAB)[address] Platelets (Bld) [#/Vol] 230 10*3/uL Normal 140-440 [facility] Comment on above: Performed By: #### L [id number] ####Pharmacy Informatics Manager: NATALIE JOSE ([phone])[facility] (SBHLAB)[address] RBC (Bld) [#/Vol] 3.15 10*6/uL Low 3.80-5.20 [facility] Comment on above: Performed By: #### L [id number] ####Pharmacy Informatics Manager: NATALIE DENISETRICIA ([phone])[facility] (SB[facility])[address] WBC (Bld) [#/Vol] 7.8 10*3/uL Normal 3.6-10.7 [facility] Comment on above: Performed By: #### L [id number] ####Pharmacy Informatics Manager: NATALIE DENISETRICIA ([phone])[facility] Miguel [facility] ([facility] COMPREHENSIVE METABOLIC PANE Florentin 06-17-2025 Albumin [Mass/Vol] 2.3 g/dL Low 3.4-4.8 [facility] Comment on above: Performed By: #### L [id number] ####Pharmacy Informatics Manager: NATALIE DENISETRICIA ([phone])[facility] [place] (SBHLAB)[address] ALP [Catalytic activity/Vol] 133 U/L Normal 40-150 [facility] Comment on above: Performed By: #### L [id number] ####Pharmacy Informatics Manager: NATALIE GARCIA ([phone])[facility] [place] (SB[facility])[address] ALT [Catalytic activity/Vol] 14 U/L Normal <30 [facility] Comment on above: Performed By: #### L [id number] ####Pharmacy Informatics Manager: NATALIE SIMONDANIEL ([phone])[facility] [place] (SB[facility])[address] Anion gap [Moles/Vol] 12 mmol/L Normal 3-13 [facility] Comment on above: Performed By: #### L [id number] ####Pharmacy Informatics Manager: NATALIE DENISETRICIA ([phone])[facility] [place] (SB[facility])[address] AST [Catalytic activity/Vol] 28 U/L Normal <34 [facility] Comment on above: Performed By: #### L [id number] ####Pharmacy Informatics Manager: NATALIE DENISETRICIA ([phone])[facility] [place] (SB[facility])[address] Bilirubin [Mass/Vol] 0.7 mg/dL Normal <1.2 [facility] Comment on above: Performed By: #### L [id number] ####Pharmacy Informatics Manager: NATALIE DENISETRICIA ([phone])[facility] [place] (SB[facility])[address] Calcium [Mass/Vol] 9.3 mg/dL Normal 8.8-10.0 [facility] Comment on above: Performed By: #### L [id number] ####Pharmacy Informatics Manager: NATALEI GARCIA ([phone])[facility] [place] (SB[facility])[address] Chloride [Moles/Vol] 99 mmol/L Normal 98-107 [facility] Comment on above: Performed By: #### L [id number] ####Pharmacy Informatics Manager: NATALIE GARCIA ([phone])[facility] [place] (SBHLAB)[address] CO2 [Moles/Vol] 24 mmol/L Normal 23-31 [facility] Comment on above: Performed By: #### L [id number] ####Pharmacy Informatics Manager: NATALIE GARCIA ([phone])[facility] (SBHLAB)[address] Creatinine [Mass/Vol] 2.72 mg/dL High 0.57-1.11 [facility] Comment on above: Performed By: #### L [id number] ####Pharmacy Informatics Manager: NATALIE GARCIA ([phone])[facility] (SBHLAB)[address] [place] [address] GLOMERULAR FILTRATION RATE ML/MIN/1.73 SQ M.PREDICTED 17.5 mL/min/1.73m*2 Low >60.0 [facility] Comment on above: Result Comment: Calc ulation based on the Chronic Kidney Disease Epidemiology Collaboration (CKD-EPI) equation refit without adjustment for race Performed By: #### L [id number] ####Pharmacy Informatics Manager: NATALIE GARCIA ([phone])[facility] (SBHLAB)[address] [place] [address] Glucose [Mass/Vol] 62 mg/dL Low 82-115 [facility] Comment on above: Performed By: #### L [id number] ####Pharmacy Informatics Manager: NATALIE GARCIA ([phone])[facility] (HLAB)[address] Potassium [Moles/Vol] 4.1 mmol/L Normal 3.5-5.1 [facility] Comment on above: Result Comment: [facility] potassium values may be up to 0.5 mmol/L lower than serum values. Performed By: #### L [id number] ####Pharmacy Informatics Manager: NATALIE GARCIA ([phone])[facility] [place] (SBHLAB)[address] Protein [Mass/Vol] 6.8 g/dL Normal 6.4-8.3 [facility] Comment on above: Performed By: #### L [id number] ####Pharmacy Informatics Manager: NATALIE JOSE ([phone])[facility] [place] (SB[facility]AB)[address] Sodium [Moles/Vol] 135 mmol/L Low 136-145 [facility] Comment on above: Performed By: #### L [id number] ####Pharmacy Informatics Manager: NATALIE JOSE ([phone])[facility] [place] (SBHLAB)[address] Urea nitrogen [Mass/Vol] 33 mg/dL High 9-23 [facility] Comment on above: Performed By: #### L [id number] ####Pharmacy Informatics Manager: NATALIE GARCIA ([phone])[facility] [place] (SBHLAB)[address] Comprehensive metabolic 1998 panelon 06-17-2025 Albumin [Mass/Vol] 2.3 g/dL Low 3.4 - 4.8 g/dL [facility] ALP [Catalytic activity/Vol] 133 U/L 40 - 150 U/L [facility] ALT [Catalytic activity/Vol] 14 U/L NINF - 30 U/L [facility] Anion gap [Moles/Vol] 12 mmol/L 3 - 13 mmol/L [facility] AST [Catalytic activity/Vol] 28 U/L NINF - 34 U/L [facility] Bilirubin [Mass/Vol] 0.7 mg/dL NINF - 1.2 mg/dL [facility] Calcium [Mass/Vol] 9.3 mg/dL 8.8 - 10. 0 mg/dL [facility] Chloride [Moles/Vol] 99 mmol/L 98 - 10 7 mmol/L [facility] CO2 [Moles/Vol] 24 mmol/L 23 - 31 mmol/L [facility] Creatinine [Mass/Vol] 2.72 mg/dL High 0.57 - 1.11 mg/dL [facility] GFR/1.73 sq M.predicted (S/P/Bld) [Vol rate/Area] 17.5 mL/min Low - PINF [facility] Glucose [Mass/Vol] 62 mg/dL Low 82 - 115 mg/dL [facility] Interpretation and review of laboratory results Abnormal [facility] Potassium [Moles/Vol] 4.1 mmol/L 3.5 - 5.1 mmol/L [facility] Protein [Mass/Vol] 6.8 g/dL 6.4 - 8.3 g/dL [facility] Sodium [Moles/Vol] 135 mmol/L Low 136 - 145 mmol/L [facility] Urea nitrogen [Mass/Vol] 33 mg/dL High 9 - 23 mg/dL [facility] - Chemistry and C hemistry - challengeon 06-17-2025 Glucose [Mass/Vol] 135 mg/dL High 70 - 100 mg/dL [facility] Glucose [Mass/Vol] 118 mg/dL High 70 - 100 mg/dL [facility] Glucose [Mass/Vol] 106 mg/dL High 70 - 100 mg/dL [facility] Glucose [Mass/Vol] 74 mg/dL 70 - 100 mg/dL [facility] No Panel Informationon 06-17 Interpretation and review of laboratory results Abnormal [facility] Interpretation and review of laboratory results Abnormal [facility] Interpretation and review of laboratory results Abnormal [facility] Interpretation and review of laboratory results Normal [facility] Progress Noteon 06-17-2025 [facility] [employer] Progress Note [facility] [employer] Progress Note [facility] [employer] CBC W Auto Differential pane l (Bld)on 06-16-2025 Basophils (Bld) [#/Vol] 0 10*3/uL 0.0 - 0.2 10*3/uL [facility] Basophils/100 WBC (Bld) 0.6 % 0.0 - 2.0 % [facility] Eosinophils (Bld) [#/Vol] 0.2 10*3/uL 0.0 - 0.5 10*3/uL [facility] Eosinophils/100 WBC (Bld) 2.7 % 0.0 - 6.0 % [facility] Erythrocyte distribution width (RBC) [Ratio] 18.2 % High 11.5 - 15.0 % [facility] Hematocrit (Bld) [Volume fraction] 24.7 % Low 35.0 - 47.0 % [facility] Hemoglobin (Bld) [Mass/Vol] 7.6 g/dL Low 11.7 - 16.0 g/dL [facility] Immature granulocytes (Bld) [#/Vol] 0 10*3/uL NINF - 0.1 10*3/uL [facility] Immature granulocytes/100 WBC (Bld) 0.5 % 0.0 - 2.0 % [facility] Interpretation and review of laboratory results Abnormal [facility] Lymphocytes (Bld) [#/Vol] 1 10*3/uL 1.0 - 4.3 10*3/uL [facility] Lymphocytes/100 WBC (Bld) 16.5 % 15.0 - 45.0 % [facility] MCH (RBC) [Entitic mass] 26.5 pg 26.0 - 34.0 pg [facility] MCHC (RBC) [Mass/Vol] 30.8 % 30.5 - 36.0 % [facility] MCV (RBC) [Entitic vol] 86.1 fL 77.0 - 99.0 fL [facility] Monocytes (Bld) [#/Vol] 0.5 10*3/uL 0.0 - 0.9 10*3/uL [facility] Monocytes/100 WBC (Bld) 7.9 % 5.0 - 13.0 % [facility] Neutrophils (Bld) [#/Vol] 4.5 10*3/uL 1.8 - 7.5 10*3/uL [facility] Neutrophils/100 WBC (Bld) 71.8 % 38.0 - 82.0 % [facility] Nucleated RBC/100 WBC (Bld) [Ratio] 0 % [facility] Platelet mean volume (Bld) [Entitic vol] 9.9 fL 9.0 - 12.7 fL [facility] Platelets (Bld) [#/Vol] 217 10*3/uL 140 - 440 10*3/uL [facility] RBC (Bld) [#/Vol] 2.87 10*6/uL Low 3.80 - 5.2 0 10*6/uL [facility] WBC (Bld) [#/Vol] 6.2 10*3/uL 3.6 - 10.7 10*3/uL [facility] CBC WITH AUTO DIFFERENTIALon 06-16-2025 Basophils (Bld) [#/Vol] 0.0 10*3/uL Normal 0.0-0.2 [facility] Comment on above: Performed By: #### L [id number] ####Pharmacy Informatics Manager: NATALIE GARCIA ([phone])[facility] (SBHLAB)[address] Basophils/100 WBC (Bld) 0.6 % Normal 0.0-2.0 [facility] Comment on above: Performed By: #### L [id number] ####Pharmacy Informatics Manager: NATALIE GARCIA ([phone])[facility] ([facility] [place] [address] Eosinophils (Bld) [#/Vol] 0.2 10*3/uL Normal 0.0-0.5 [facility] Comment on above: Performed By: #### L [id number] ####Pharmacy Informatics Manager: NATALIE GARCIA ([id number])[facility] ([facility])[address] [place] [address] Eosinophils/100 WBC (Bld) 2.7 % Normal 0.0-6.0 [facility] Comment on above: Performed By: #### L [id number] ####Pharmacy Informatics Manager: NATALIE GARCIA ([id number])[facility] ([facility])[address] [place] [address] Erythrocyte distribution width (RBC) [Ratio] 18.2 % High 11.5-15.0 [facility] Comment on above: Performed By: #### L [id number] ####Pharmacy Informatics Manager: NATALIE GARCIA ([phone])[facility] ([facility])[address] [place] [address] Hematocrit (Bld) [Volume fraction] 24.7 % Low 35.0-47.0 [facility] Comment on above: Performed By: #### L [id number] ####Pharmacy Informatics Manager: NATALIE GARCIA ([phone])[facility] ([facility])[address] Hemoglobin (Bld) [Mass/Vol] 7.6 g/dL Low 11.7-16.0 [facility] Comment on above: Performed By: #### L [id number] ####Pharmacy Informatics Manager: NATALIE GARCIA ([phone])[facility] ([facility] IMMATURE GRANS % 0.5 % Normal 0.0-2.0 [facility] Comment on above: Performed By: #### L [id number] ####Pharmacy Informatics Manager: NATALIE GARCIA ([phone])[facility] ([facility])[address] [place] [address] IMMATURE GRANS ABSOLUTE 0.0 10*3/uL Normal <0.1 [facility] Comment on above: Performed By: #### L [id number] ####Pharmacy Informatics Manager: NATALIE GARCIA ([phone])[facility] ([facility])[address] [place] [address] Lymphocytes (Bld) [#/Vol] 1.0 10*3/uL Normal 1.0-4.3 [facility] Comment on above: Performed By: #### L [id number] ####Pharmacy Informatics Manager: NATALIE GARCIA ([phone])[facility] ([facility])[address] Lymphocytes/100 WBC (Bld) 16.5 % Normal 15.0-45.0 [facility] Comment on above: Performed By: #### L [id number] ####Pharmacy Informatics Manager: NATALIE GARCIA ([phone])[facility] ([facility])[address] [place] [address] MCH (RBC) [Entitic mass] 26.5 pg Normal 26.0-34.0 [facility] Comment on above: Performed By: #### L [id number] ####Pharmacy Informatics Manager: NATALIE DENISETRICIA ([phone])[facility] [place] (SBHLAB)[address] MCHC 30.8 % Normal 30.5-36.0 [facility] Comment on above: Performed By: #### L [id number] ####Pharmacy Informatics Manager: NATALIE DENISETRICIA ([phone])[facility] [place] (SBHLAB)[address] MCV (RBC) [Entitic vol] 86.1 fL Normal 77.0-99.0 [facility] Comment on above: Performed By: #### L [id number] ####Pharmacy Informatics Manager: NATALIE JOSE ([phone])[facility] [place] (SBHLAB)[address] [place] [address] Monocytes (Bld) [#/Vol] 0.5 10*3/uL Normal 0.0-0.9 [facility] Comment on above: Performed By: #### L [id number] ####Pharmacy Informatics Manager: NATALIE DENISETRICIA ([phone])[facility] [place] (SBHLAB)[address] Monocytes/100 WBC (Bld) 7.9 % Normal 5.0-13.0 [facility] Comment on above: Performed By: #### L [id number] ####Pharmacy Informatics Manager: NATALIE DENISETRICIA ([id number])[facility] [place] (SBHLAB)[address] NEUTROPHILS ABSOLUTE 4.5 10*3/uL Normal 1.8-7.5 [facility] Comment on above: Performed By: #### L [id number] ####Pharmacy Informatics Manager: NATALIE DENISETRICIA ([id number])[facility] [place] (SBHLAB)[address] Neutrophils/100 WBC (Bld) 71.8 % Normal 38.0-82.0 [facility] Comment on above: Performed By: #### L [id number] ####Pharmacy Informatics Manager: NATALIE JOSE ([phone])[facility] [place] (SBHLAB)[address] NRBC 0.0 /100 WBCs Normal 0.0-2.0 [facility] Comment on above: Performed By: #### L [id number] ####Pharmacy Informatics Manager: NATALIE JOSE ([phone])[facility] [place] (SBHLAB)[address] Platelet mean volume (Bld) [Entitic vol] 9.9 fL Normal 9.0-12.7 [facility] Comment on above: Performed By: #### L [id number] ####Pharmacy Informatics Manager: NATALIEMELODIE GARCIA ([phone])[facility] [place] (SBHLAB)[address] Platelets (Bld) [#/Vol] 217 10*3/uL Normal 140-440 [facility] Comment on above: Performed By: #### L [id number] ####Pharmacy Informatics Manager: NATALIE JOSE ([phone])[facility] (SBHLAB)[address] RBC (Bld) [#/Vol] 2.87 10*6/uL Low 3.80-5.20 [facility] Comment on above: Performed By: #### L [id number] ####Pharmacy Informatics Manager: NATALIE SIMONDANIEL ([phone])[facility] [place] (SBHLAB)[address] WBC (Bld) [#/Vol] 6.2 10*3/uL Normal 3.6-10.7 [facility] Comment on above: Performed By: #### L [id number] ####Pharmacy Informatics Manager: NATALEI SIMONDANIEL ([phone])[facility] [place] (SBHLAB)[address] COMPREHENSIVE METABOLIC PANE Florentin 06-16-2025 Albumin [Mass/Vol] 2.2 g/dL Low 3.4-4.8 [facility] Comment on above: Performed By: #### L [id number] ####Pharmacy Informatics Manager: NATALIE GARCIA ([phone])[facility] [place] (SBHLAB)[address] ALP [Catalytic activity/Vol] 127 U/L Normal 40-150 [facility] Comment on above: Performed By: #### L [id number] ####Pharmacy Informatics Manager: NATALIE GARCIA ([phone])[facility] (SBHLAB)[address] ALT [Catalytic activity/Vol] 12 U/L Normal <30 [facility] Comment on above: Performed By: #### L [id number] ####Pharmacy Informatics Manager: NATALIE GARCIA ([phone])[facility] [place] (HLAB)[address] Anion gap [Moles/Vol] 10 mmol/L Normal 3-13 [facility] Comment on above: Performed By: #### L [id number] ####Pharmacy Informatics Manager: NATALIE GARCIA ([phone])[facility] (SBHLAB)[address] AST [Catalytic activity/Vol] 26 U/L Normal <34 [facility] Comment on above: Performed By: #### L [id number] ####Pharmacy Informatics Manager: NATALIE GARCIA ([phone])[facility] (HLAB)[address] Bilirubin [Mass/Vol] 0.5 mg/dL Normal <1.2 [facility] Comment on above: Performed By: #### L [id number] ####Pharmacy Informatics Manager: NATALIE GARCIA ([phone])[facility] (HLAB)[address] Calcium [Mass/Vol] 8.6 mg/dL Low 8.8-10.0 [facility] Comment on above: Performed By: #### L [id number] ####Pharmacy Informatics Manager: NATALIE GARCIA ([phone])[facility] [place] (SBHLAB)[address] Chloride [Moles/Vol] 100 mmol/L Normal 98-107 [facility] Comment on above: Performed By: #### L [id number] ####Pharmacy Informatics Manager: NATALIE SIMONDANIEL ([phone])[facility] (SBHLAB)[address] CO2 [Moles/Vol] 27 mmol/L Normal 23-31 [facility] Comment on above: Performed By: #### L [id number] ####Pharmacy Informatics Manager: NATALIE SIMONDANIEL ([id number])[facility] ([facility])[address] Creatinine [Mass/Vol] 1.89 mg/dL High 0.57-1.11 [facility] Comment on above: Performed By: #### L [id number] ####Pharmacy Informatics Manager: NATALIE DENISETRICIA ([phone])[facility] (HLAB)[address] GLOMERULAR FILTRATION RATE ML/MIN/1.73 SQ M.PREDICTED 27.1 mL/min/1.73m*2 Low >60.0 [facility] Comment on above: Result Comment: Calc ulation based on the Chronic Kidney Disease Epidemiology Collaboration (CKD-EPI) equation refit without adjustment for race Performed By: #### L [id number] ####Pharmacy Informatics Manager: NATALIE DENISETRICIA ([id number])[facility] ([facility])[address] Glucose [Mass/Vol] 131 mg/dL High 82-115 [facility] Comment on above: Performed By: #### L [id number] ####Pharmacy Informatics Manager: NATALIE GARCIA ([phone])[facility] (HLAB)[address] Potassium [Moles/Vol] 4.4 mmol/L Normal 3.5-5.1 [facility] Comment on above: Result Comment: [facility] potassium values may be up to 0.5 mmol/L lower than serum values. Performed By: #### L [id number] ####Pharmacy Informatics Manager: NATALIE JOSE ([phone])[facility] (SBHLAB)[address] Protein [Mass/Vol] 6.3 g/dL Low 6.4-8.3 [facility] Comment on above: Performed By: #### L [id number] ####Pharmacy Informatics Manager: NATALIE JOSE ([id number])[facility] [place] (SBHLAB)[address] Sodium [Moles/Vol] 137 mmol/L Normal 136-145 [facility] Comment on above: Performed By: #### L [id number] ####Pharmacy Informatics Manager: NATALIE JOSE ([phone])[facility] (SBHLAB)[address] Urea nitrogen [Mass/Vol] 20 mg/dL Normal 9-23 [facility] Comment on above: Performed By: #### L [id number] ####Pharmacy Informatics Manager: NATALIE JOSE ([phone])[facility] (SBHLAB)[address] Comprehensive metabolic 1998 panelon 06-16-2025 Albumin [Mass/Vol] 2.2 g/dL Low 3.4 - 4.8 g/dL [facility] ALP [Catalytic activity/Vol] 127 U/L 40 - 150 U/L [facility] ALT [Catalytic activity/Vol] 12 U/L NINF - 30 U/L [facility] Anion gap [Moles/Vol] 10 mmol/L 3 - 13 mmol/L [facility] AST [Catalytic activity/Vol] 26 U/L NINF - 34 U/L [facility] Bilirubin [Mass/Vol] 0.5 mg/dL NINF - 1.2 mg/dL [facility] Calcium [Mass/Vol] 8.6 mg/dL Low 8.8 - 10. 0 mg/dL [facility] Chloride [Moles/Vol] 100 mmol/L 98 - 10 7 mmol/L [facility] CO2 [Moles/Vol] 27 mmol/L 23 - 31 mmol/L [facility] Creatinine [Mass/Vol] 1.89 mg/dL High 0.57 - 1.11 mg/dL [facility] GFR/1.73 sq M.predicted (S/P/Bld) [Vol rate/Area] 27.1 mL/min Low - PINF [facility] Glucose [Mass/Vol] 131 mg/dL High 82 - 115 mg/dL [facility] Interpretation and review of laboratory results Abnormal [facility] Potassium [Moles/Vol] 4.4 mmol/L 3.5 - 5.1 mmol/L [facility] Protein [Mass/Vol] 6.3 g/dL Low 6.4 - 8.3 g/dL [facility] Sodium [Moles/Vol] 137 mmol/L 136 - 145 mmol/L [facility] Urea nitrogen [Mass/Vol] 20 mg/dL 9 - 23 mg/dL [facility] Laboratory - Chemistry and C hemistry - challengeon 06-16-2025 Glucose [Mass/Vol] 138 mg/dL High 70 - 100 mg/dL [facility] Glucose [Mass/Vol] 134 mg/dL High 70 - 100 mg/dL [facility] Glucose [Mass/Vol] 149 mg/dL High 70 - 100 mg/dL [facility] Glucose [Mass/Vol] 142 mg/dL High 70 - 100 mg/dL [facility] Glucose [Mass/Vol] 141 mg/dL High 70 - 100 mg/dL [facility] No Panel Informationon 06-16 Interpretation and review of laboratory results Abnormal [facility] Interpretation and review of laboratory results Abnormal [facility] Interpretation and review of laboratory results Abnormal [facility] Interpretation and review of laboratory results Abnormal [facility] Interpretation and review of laboratory results Abnormal [facility] Progress Noteon 06-16-2025 Progress Note [facility] [employer] Progress Note [facility] [employer] Progress Note [facility] [employer] [id number] 06-15-2025 [id number] Normal [facility] [id number] Normal [facility] Bacteria identified Anaer cx Nom (Unsp spec)on 06-15-2025 Interpretation and review of laboratory results Normal [facility] CBC W Auto Differential pane l (Bld)on 06-15-2025 Basophils (Bld) [#/Vol] 0.1 10*3/uL 0.0 - 0.2 10*3/uL [facility] Basophils/100 WBC (Bld) 0.8 % 0.0 - 2.0 % [facility] Eosinophils (Bld) [#/Vol] 0.1 10*3/uL 0.0 - 0.5 10*3/uL [facility] Eosinophils/100 WBC (Bld) 2.1 % 0.0 - 6.0 % [facility] Erythrocyte distribution width (RBC) [Ratio] 17.7 % High 11.5 - 15.0 % [facility] Hematocrit (Bld) [Volume fraction] 25.7 % Low 35.0 - 47.0 % [facility] Hemoglobin (Bld) [Mass/Vol] 7.9 g/dL Low 11.7 - 16.0 g/dL [facility] Immature granulocytes (Bld) [#/Vol] 0 10*3/uL NINF - 0.1 10*3/uL [facility] Immature granulocytes/100 WBC (Bld) 0.3 % 0.0 - 2.0 % [facility] Interpretation and review of laboratory results Abnormal [facility] Lymphocytes (Bld) [#/Vol] 1.3 10*3/uL 1.0 - 4.3 10*3/uL [facility] Lymphocytes/100 WBC (Bld) 21.3 % 15.0 - 45.0 % [facility] MCH (RBC) [Entitic mass] 26.2 pg 26.0 - 34.0 pg [facility] MCHC (RBC) [Mass/Vol] 30.7 % 30.5 - 36.0 % [facility] MCV (RBC) [Entitic vol] 85.4 fL 77.0 - 99.0 fL [facility] Monocytes (Bld) [#/Vol] 0.5 10*3/uL 0.0 - 0.9 10*3/uL [facility] Monocytes/100 WBC (Bld) 8.6 % 5.0 - 13.0 % [facility] Neutrophils (Bld) [#/Vol] 4.1 10*3/uL 1.8 - 7.5 10*3/uL [facility] Neutrophils/100 WBC (Bld) 66.9 % 38.0 - 82.0 % [facility] Nucleated RBC/100 WBC (Bld) [Ratio] 0 % [facility] Platelet mean volume (Bld) [Entitic vol] 9.7 fL 9.0 - 12.7 fL [facility] Platelets (Bld) [#/Vol] 233 10*3/uL 140 - 440 10*3/uL [facility] RBC (Bld) [#/Vol] 3.01 10*6/uL Low 3.80 - 5.2 0 10*6/uL [facility] WBC (Bld) [#/Vol] 6.1 10*3/uL 3.6 - 10.7 10*3/uL [facility] CBC WITH AUTO DIFFERENTIALon 06-15-2025 Basophils (Bld) [#/Vol] 0.1 10*3/uL Normal 0.0-0.2 [facility] Comment on above: Performed By: #### L [id number] ####Pharmacy Informatics Manager: NATALIE GARCIA ([phone])[facility] ([facility])[address] [place] [address] Basophils/100 WBC (Bld) 0.8 % Normal 0.0-2.0 S [facility] Comment on above: Performed By: #### L [id number] ####Pharmacy Informatics Manager: NATALIE GARCIA ([phone])[facility] ([facility])[address] [place] [address] Eosinophils (Bld) [#/Vol] 0.1 10*3/uL Normal 0.0-0.5 [facility] Comment on above: Performed By: #### L [id number] ####Pharmacy Informatics Manager: NATALIE GARCIA ([phone])[facility] [place] (SB[facility])[address] [place] [address] [place] Eosinophils/100 WBC (Bld) 2.1 % Normal 0.0-6.0 [facility] Comment on above: Performed By: #### L [id number] ####Pharmacy Informatics Manager: NATALIE GARCIA ([phone])[facility] ([facility])[address] Erythrocyte distribution width (RBC) [Ratio] 17.7 % High 11.5-15.0 [facility] Comment on above: Performed By: #### L [id number] ####Pharmacy Informatics Manager: NATALIE DENISETRICIA ([id number])[facility] [place] (SB[facility])[address] Hematocrit (Bld) [Volume fraction] 25.7 % Low 35.0-47.0 [facility] Comment on above: Performed By: #### L [id number] ####Pharmacy Informatics Manager: NATALIE DENISETRICIA ([id number])[facility] [place] (SB[facility])[address] Hemoglobin (Bld) [Mass/Vol] 7.9 g/dL Low 11.7-16.0 [facility] Comment on above: Performed By: #### L [id number] ####Pharmacy Informatics Manager: NATALIE GARCIA ([phone])[facility] [place] (SB[facility])[address] IMMATURE GRANS % 0.3 % Normal 0.0-2.0 [facility] Comment on above: Performed By: #### L [id number] ####Pharmacy Informatics Manager: NATALIE DENISETRICIA ([id number])[facility] [place] ([facility])[address] IMMATURE GRANS ABSOLUTE 0.0 10*3/uL Normal <0.1 [facility] Comment on above: Performed By: #### L [id number] ####Pharmacy Informatics Manager: NATALIE GARCIA ([phone])[facility] [place] (SB[facility])[address] [place] [address] [place] Lymphocytes (Bld) [#/Vol] 1.3 10*3/uL Normal 1.0-4.3 [facility] Comment on above: Performed By: #### L [id number] ####Pharmacy Informatics Manager: NATALIE GARCIA ([phone])[facility] ([facility])[address] Lymphocytes/100 WBC (Bld) 21.3 % Normal 15.0-45.0 [facility] Comment on above: Performed By: #### L [id number] ####Pharmacy Informatics Manager: NATALIE GARCIA ([phone])[facility] [place] (SBHLAB)[address] MCH (RBC) [Entitic mass] 26.2 pg Normal 26.0-34.0 [facility] Comment on above: Performed By: #### L [id number] ####Pharmacy Informatics Manager: NATALIE GARCIA ([phone])[facility] [place] ([facility])[address] MCHC 30.7 % Normal 30.5-36.0 [facility] Comment on above: Performed By: #### L [id number] ####Pharmacy Informatics Manager: NATALIE GARCIA ([phone])[facility] [place] ([facility])[address] MCV (RBC) [Entitic vol] 85.4 fL Normal 77.0-99.0 [facility] Comment on above: Performed By: #### L [id number] ####Pharmacy Informatics Manager: NATALIE GARCIA ([phone])[facility] [place] ([facility])[address] [place] [address] Monocytes (Bld) [#/Vol] 0.5 10*3/uL Normal 0.0-0.9 [facility] Comment on above: Performed By: #### L [id number] ####Pharmacy Informatics Manager: NATALIE GARCIA ([phone])[facility] [place] ([facility])[address] Monocytes/100 WBC (Bld) 8.6 % Normal 5.0-13.0 [facility] Comment on above: Performed By: #### L [id number] ####Pharmacy Informatics Manager: NATALIE GARCIA ([phone])[facility] [place] ([facility])[address] NEUTROPHILS ABSOLUTE 4.1 10*3/uL Normal 1.8-7.5 [facility] Comment on above: Performed By: #### L [id number] ####Pharmacy Informatics Manager: NATALIE GARCIA ([id number])[facility] [place] ([facility])[address] Neutrophils/100 WBC (Bld) 66.9 % Normal 38.0-82.0 [facility] Comment on above: Performed By: #### L [id number] ####Pharmacy Informatics Manager: NATALIE GARCIA ([phone])[facility] [place] ([facility])[address] NRBC 0.0 /100 WBCs Normal 0.0-2.0 [facility] Comment on above: Performed By: #### L [id number] ####Pharmacy Informatics Manager: NATALIE GARCIA ([phone])[facility] [place] ([facility])[address] Platelet mean volume (Bld) [Entitic vol] 9.7 fL Normal 9.0-12.7 [facility] Comment on above: Performed By: #### L [id number] ####Pharmacy Informatics Manager: NATALIE GARCIA ([id number])[facility] [place] ([facility])[address] Platelets (Bld) [#/Vol] 233 10*3/uL Normal 140-440 [facility] Comment on above: Performed By: #### L [id number] ####Pharmacy Informatics Manager: NATALIE GARCIA ([phone])[facility] [place] ([facility])[address] RBC (Bld) [#/Vol] 3.01 10*6/uL Low 3.80-5.20 [facility] Comment on above: Performed By: #### L [id number] ####Pharmacy Informatics Manager: NATALIE GARCIA ([phone])[facility] [place] ([facility])[address] WBC (Bld) [#/Vol] 6.1 10*3/uL Normal 3.6-10.7 [facility] Comment on above: Performed By: #### L [id number] ####Pharmacy Informatics Manager: NATALIE GARCIA ([phone])[facility] [place] (SBHLAB)[address] COMPREHENSIVE METABOLIC PANE Florentin 06-15-2025 Albumin [Mass/Vol] 2.3 g/dL Low 3.4-4.8 [facility] Comment on above: Performed By: #### L AB17, [id number] ####Pharmacy Informatics Manager: NATALIE GARCIA ([phone])[facility] [place] ([facility])[address] ALP [Catalytic activity/Vol] 129 U/L Normal 40-150 [facility] Comment on above: Performed By: #### L AB17, [id number] ####Pharmacy Informatics Manager: NATALIE GARCIA ([id number])[facility] [place] ([facility])[address] ALT [Catalytic activity/Vol] 10 U/L Normal <30 [facility] Comment on above: Performed By: #### L AB17, [id number] ####Pharmacy Informatics Manager: NATALIE GARCIA ([phone])[facility] [place] ([facility])[address] Anion gap [Moles/Vol] 12 mmol/L Normal 3-13 [facility] Comment on above: Performed By: #### L AB17, [id number] ####Pharmacy Informatics Manager: NATALIE GARCIA ([id number])[facility] [place] ([facility])[address] AST [Catalytic activity/Vol] 26 U/L Normal <34 [facility] Comment on above: Performed By: #### L AB17, [id number] ####Pharmacy Informatics Manager: NATALIE GARCIA ([phone])[facility] [place] ([facility])[address] Bilirubin [Mass/Vol] 0.7 mg/dL Normal <1.2 [facility] Comment on above: Performed By: #### L AB17, [id number] ####Pharmacy Informatics Manager: NATALIE GARCIA ([phone])[facility]ITAL[facility] (SBHLAB)[address] Calcium [Mass/Vol] 8.8 mg/dL Normal 8.8-10.0 [facility] Comment on above: Performed By: #### L AB17, [id number] ####Pharmacy Informatics Manager: NATALIE GARCIA ([id number])[facility] ([facility])[address] Chloride [Moles/Vol] 97 mmol/L Low 98-107 [facility] Comment on above: Performed By: #### L AB17, [id number] ####Pharmacy Informatics Manager: NATALIE GARCIA ([phone])[facility] (SB[facility]AB)[address] CO2 [Moles/Vol] 25 mmol/L Normal 23-31 [facility] Comment on above: Performed By: #### L AB17, [id number] ####Pharmacy Informatics Manager: NATALIE GARCIA ([phone])[facility] ([facility])[address] Creatinine [Mass/Vol] 2.80 mg/dL High 0.57-1.11 [facility] Comment on above: Performed By: #### L AB17, [id number] ####Pharmacy Informatics Manager: NATALIE GARCIA ([phone])[facility] (SBHLAB)[address] [place] [address] [place] GLOMERULAR FILTRATION RATE ML/MIN/1.73 SQ M.PREDICTED 16.9 mL/min/1.73m*2 Low >60.0 [facility] Comment on above: Result Comment: Calc ulation based on the Chronic Kidney Disease Epidemiology Collaboration (CKD-EPI) equation refit without adjustment for race Performed By: #### L AB17, [id number] ####Pharmacy Informatics Manager: NATALIE [phone])[facility] (SBHLAB)[address] Glucose [Mass/Vol] 80 mg/dL Low 82-115 [facility] Comment on above: Performed By: #### L AB17, [id number] ####Pharmacy Informatics Manager: NATALIE GARCIA ([id number])[facility] [place] (SBHLAB)[address] Potassium [Moles/Vol] 3.4 mmol/L Low 3.5-5.1 [facility] Comment on above: Result Comment: [facility] potassium values may be up to 0.5 mmol/L lower than serum values. Performed By: #### L AB17, [id number] ####Pharmacy Informatics Manager: NATALIE GARCIA ([phone])[facility] [place] (SBHLAB)[address] Protein [Mass/Vol] 6.4 g/dL Normal 6.4-8.3 [facility] Comment on above: Performed By: #### L AB17, [id number] ####Pharmacy Informatics Manager: NATALIE GARCIA ([id number])[facility]ITAL[facility] (SBHLAB)[address] Sodium [Moles/Vol] 134 mmol/L Low 136-145 [facility] Comment on above: Performed By: #### L AB17, [id number] ####Pharmacy Informatics Manager: NATALIE GARCIA ([phone])[facility]ITAL[facility] (SBHLAB)[address] Urea nitrogen [Mass/Vol] 31 mg/dL High 9-23 [facility] Comment on above: Performed By: #### L AB17, [id number] ####Pharmacy Informatics Manager: NATALIE GARCIA ([phone])[facility]ITAL[facility] (SB[facility]AB)[address] Comprehensive metabolic 1998 panelon 06-15-2025 Albumin [Mass/Vol] 2.3 g/dL Low 3.4 - 4.8 g/dL [facility] ALP [Catalytic activity/Vol] 129 U/L 40 - 150 U/L [facility] ALT [Catalytic activity/Vol] 10 U/L NINF - 30 U/L [facility] Anion gap [Moles/Vol] 12 mmol/L 3 - 13 mmol/L [facility] AST [Catalytic activity/Vol] 26 U/L NINF - 34 U/L [facility] Bilirubin [Mass/Vol] 0.7 mg/dL NINF - 1.2 mg/dL [facility] Calcium [Mass/Vol] 8.8 mg/dL 8.8 - 10. 0 mg/dL [facility] Chloride [Moles/Vol] 97 mmol/L Low 98 - 10 7 mmol/L [facility] CO2 [Moles/Vol] 25 mmol/L 23 - 31 mmol/L [facility] Creatinine [Mass/Vol] 2.8 mg/dL High 0.57 - 1.11 mg/dL [facility] GFR/1.73 sq M.predicted (S/P/Bld) [Vol rate/Area] 16.9 mL/min Low - PINF [facility] Glucose [Mass/Vol] 80 mg/dL Low 82 - 115 mg/dL [facility] Interpretation and review of laboratory results Abnormal [facility] Potassium [Moles/Vol] 3.4 mmol/L Low 3.5 - 5.1 mmol/L [facility] Protein [Mass/Vol] 6.4 g/dL 6.4 - 8.3 g/dL [facility] Sodium [Moles/Vol] 134 mmol/L Low 136 - 145 mmol/L [facility] Urea nitrogen [Mass/Vol] 31 mg/dL High 9 - 23 mg/dL [facility] Laboratory - Chemistry and C hemistry - challengeon 06-15-2025 Glucose [Mass/Vol] 143 mg/dL High 70 - 100 mg/dL [facility] Glucose [Mass/Vol] 117 mg/dL High 70 - 100 mg/dL [facility] Glucose [Mass/Vol] 98 mg/dL 70 - 100 mg/dL [facility] Magnesium [Mass/Vol] 1.8 mg/dL 1.6 - 2 .6 mg/dL [facility] Glucose [Mass/Vol] 100 mg/dL 70 - 100 mg/dL [facility] Laboratory - Microbiology an d Antimicrobial susceptibilityon 06-15-2025 Bacteria identified Anaer cx Nom (Unsp spec) No growth at 5 days [facility] MAGNESIUMon 06-15-2025 Magnesium [Mass/Vol] 1.8 mg/dL Normal 1.6-2.6 [facility] Comment on above: Result Comment: DORIAN Knight COMMENTS:Higher values can be expected in females during menses. Performed By: #### L AB17, [id number] ####Pharmacy Informatics Manager: NATALIE GARCIA ([phone])[facility] [place] (SBAB)[address] [place] [address] Magnesium [Mass/Vol]on 06-15 Interpretation and review of laboratory results Normal [facility] No Panel Informationon 06-15 Interpretation and review of laboratory results Abnormal [facility] Interpretation and review of laboratory results Abnormal [facility] Interpretation and review of laboratory results Normal [facility] Interpretation and review of laboratory results Normal [facility] Nursing Noteon 06-15-2025 Nursing Note Normal [facility] Progress Noteon 06-15-2025 Progress Note [facility] Progress Note Normal [facility] Progress Note Normal [facility] [id number] 06-14-2025 [id number] Normal [facility] CBC W Auto Differential pane l (Bld)on 06-14-2025 Basophils (Bld) [#/Vol] 0 10*3/uL 0.0 - 0.2 10*3/uL [facility] Basophils/100 WBC (Bld) 0.7 % 0.0 - 2.0 % [facility] Eosinophils (Bld) [#/Vol] 0.2 10*3/uL 0.0 - 0.5 10*3/uL [facility] Eosinophils/100 WBC (Bld) 4 % 0.0 - 6.0 % [facility] Erythrocyte distribution width (RBC) [Ratio] 18 % High 11.5 - 15.0 % [facility] Hematocrit (Bld) [Volume fraction] 27.2 % Low 35.0 - 47.0 % [facility] Hemoglobin (Bld) [Mass/Vol] 8.5 g/dL Low 11.7 - 16.0 g/dL [facility] Immature granulocytes (Bld) [#/Vol] 0 10*3/uL NINF - 0.1 10*3/uL [facility] Immature granulocytes/100 WBC (Bld) 0.5 % 0.0 - 2.0 % [facility] Interpretation and review of laboratory results Abnormal [facility] Lymphocytes (Bld) [#/Vol] 0.9 10*3/uL Low 1.0 - 4.3 10*3/uL [facility] Lymphocytes/100 WBC (Bld) 16.8 % 15.0 - 45.0 % [facility] MCH (RBC) [Entitic mass] 26.5 pg 26.0 - 34.0 pg [facility] MCHC (RBC) [Mass/Vol] 31.3 % 30.5 - 36.0 % [facility] MCV (RBC) [Entitic vol] 84.7 fL 77.0 - 99.0 fL [facility] Monocytes (Bld) [#/Vol] 0.7 10*3/uL 0.0 - 0.9 10*3/uL [facility] Monocytes/100 WBC (Bld) 12.1 % 5.0 - 13.0 % [facility] Neutrophils (Bld) [#/Vol] 3.7 10*3/uL 1.8 - 7.5 10*3/uL [facility] Neutrophils/100 WBC (Bld) 65.9 % 38.0 - 82.0 % [facility] Nucleated RBC/100 WBC (Bld) [Ratio] 0 % [facility] Platelet mean volume (Bld) [Entitic vol] 9.8 fL 9.0 - 12.7 fL [facility] Platelets (Bld) [#/Vol] 222 10*3/uL 140 - 440 10*3/uL [facility] RBC (Bld) [#/Vol] 3.21 10*6/uL Low 3.80 - 5.2 0 10*6/uL [facility] WBC (Bld) [#/Vol] 5.6 10*3/uL 3.6 - 10.7 10*3/uL [facility] CBC WITH AUTO DIFFERENTIALon 06-14-2025 Basophils (Bld) [#/Vol] 0.0 10*3/uL Normal 0.0-0.2 [facility] Comment on above: Performed By: #### L [id number] ####Pharmacy Informatics Manager: NATALIE GARCIA ([phone])[facility] [place] (SBHLAB)[address] Basophils/100 WBC (Bld) 0.7 % Normal 0.0-2.0 [facility] Comment on above: Performed By: #### L [id number] ####Pharmacy Informatics Manager: NATALIE DENISETRICIA ([phone])[facility] [place] (SBHLAB)[address] Eosinophils (Bld) [#/Vol] 0.2 10*3/uL Normal 0.0-0.5 [facility] Comment on above: Performed By: #### L [id number] ####Pharmacy Informatics Manager: NATALIE GARCIA ([phone])[facility] [place] (SBHLAB)[address] Eosinophils/100 WBC (Bld) 4.0 % Normal 0.0-6.0 [facility] Comment on above: Performed By: #### L [id number] ####Pharmacy Informatics Manager: NATALIE GARCIA ([phone])[facility] [place] (SBHLAB)[address] Erythrocyte distribution width (RBC) [Ratio] 18.0 % High 11.5-15.0 [facility] Comment on above: Performed By: #### L [id number] ####Pharmacy Informatics Manager: NATALIE GARCIA ([phone])[facility] [place] (SBHLAB)[address] Hematocrit (Bld) [Volume fraction] 27.2 % Low 35.0-47.0 [facility] Comment on above: Performed By: #### L [id number] ####Pharmacy Informatics Manager: NATALIE GARCIA ([phone])[facility] [place] ([facility])[address] Hemoglobin (Bld) [Mass/Vol] 8.5 g/dL Low 11.7-16.0 [facility] Comment on above: Performed By: #### L [id number] ####Pharmacy Informatics Manager: NATALIE GARCIA ([phone])[facility] [place] ([facility])[address] IMMATURE GRANS % 0.5 % Normal 0.0-2.0 [facility] Comment on above: Performed By: #### L [id number] ####Pharmacy Informatics Manager: NATALIE GARCIA ([phone])[facility] (SBAB)[address] IMMATURE GRANS ABSOLUTE 0.0 10*3/uL Normal <0.1 [facility] Comment on above: Performed By: #### L [id number] ####Pharmacy Informatics Manager: NATALIE GARCIA ([phone])[facility] (SBAB)[address] Lymphocytes (Bld) [#/Vol] 0.9 10*3/uL Low 1.0-4.3 [facility] Comment on above: Performed By: #### L [id number] ####Pharmacy Informatics Manager: NATALIE GARCIA ([phone])[facility] (SBAB)[address] [place] [address] Lymphocytes/100 WBC (Bld) 16.8 % Normal 15.0-45.0 [facility] Comment on above: Performed By: #### L [id number] ####Pharmacy Informatics Manager: NATALIE GARCIA ([phone])[facility] [place] ([facility])[address] MCH (RBC) [Entitic mass] 26.5 pg Normal 26.0-34.0 [facility] Comment on above: Performed By: #### L [id number] ####Pharmacy Informatics Manager: NATALIE GARCIA ([phone])[facility] (SB[facility])[address] MCHC 31.3 % Normal 30.5-36.0 [facility] Comment on above: Performed By: #### L [id number] ####Pharmacy Informatics Manager: NATALIE GARCIA ([phone])[facility] [place] (SBHLAB)[address] MCV (RBC) [Entitic vol] 84.7 fL Normal 77.0-99.0 [facility] Comment on above: Performed By: #### L [id number] ####Pharmacy Informatics Manager: NATALIE DENISETRICIA ([phone])[facility] [place] (SBHLAB)[address] Monocytes (Bld) [#/Vol] 0.7 10*3/uL Normal 0.0-0.9 [facility] Comment on above: Performed By: #### L [id number] ####Pharmacy Informatics Manager: NATALIE DENISETRICIA ([id number])[facility] [place] ([facility])[address] Monocytes/100 WBC (Bld) 12.1 % Normal 5.0-13.0 [facility] Comment on above: Performed By: #### L [id number] ####Pharmacy Informatics Manager: NATALIE DENISETRICIA ([phone])[facility] [place] ([facility])[address] NEUTROPHILS ABSOLUTE 3.7 10*3/uL Normal 1.8-7.5 [facility] Comment on above: Performed By: #### L [id number] ####Pharmacy Informatics Manager: NATALIE DENISETRICIA ([phone])[facility] [place] ([facility])[address] Neutrophils/100 WBC (Bld) 65.9 % Normal 38.0-82.0 [facility] Comment on above: Performed By: #### L [id number] ####Pharmacy Informatics Manager: NATALIE DENISETRICIA ([id number])[facility] [place] ([facility])[address] NRBC 0.0 /100 WBCs Normal 0.0-2.0 [facility] Comment on above: Performed By: #### L [id number] ####Pharmacy Informatics Manager: NATALIE GARCIA ([phone])[facility] [place] ([facility])[address] Platelet mean volume (Bld) [Entitic vol] 9.8 fL Normal 9.0-12.7 [facility] Comment on above: Performed By: #### L [id number] ####Pharmacy Informatics Manager: NATALIE GARCIA ([id number])[facility] [place] ([facility])[address] Platelets (Bld) [#/Vol] 222 10*3/uL Normal 140-440 [facility] Comment on above: Performed By: #### L [id number] ####Pharmacy Informatics Manager: NATALIE GARCIA ([phone])[facility] [place] ([facility])[address] RBC (Bld) [#/Vol] 3.21 10*6/uL Low 3.80-5.20 [facility] Comment on above: Performed By: #### L [id number] ####Pharmacy Informatics Manager: NATALIE GARCIA ([phone])[facility] [place] ([facility])[address] WBC (Bld) [#/Vol] 5.6 10*3/uL Normal 3.6-10.7 [facility] Comment on above: Performed By: #### L [id number] ####Pharmacy Informatics Manager: NATALIE GARCIA ([phone])[facility] [place] ([facility])[address] COMPREHENSIVE METABOLIC PANE Florentin 06-14-2025 Albumin [Mass/Vol] 2.3 g/dL Low 3.4-4.8 [facility] Comment on above: Performed By: #### L AB17, [id number] ####Pharmacy Informatics Manager: NATALIE GARCIA ([id number])[facility] [place] ([facility])[address] ALP [Catalytic activity/Vol] 135 U/L Normal 40-150 [facility] Comment on above: Performed By: #### L AB17, [id number] ####Pharmacy Informatics Manager: NATALIE GARCIA ([phone])[facility] [place] ([facility])[address] ALT [Catalytic activity/Vol] 16 U/L Normal <30 [facility] Comment on above: Performed By: #### L AB17, [id number] ####Pharmacy Informatics Manager: NATALIE GARCIA ([phone])[facility] [place] ([facility])[address] Anion gap [Moles/Vol] 11 mmol/L Normal 3-13 [facility] Comment on above: Performed By: #### L AB17, [id number] ####Pharmacy Informatics Manager: NATALIE GARCIA ([phone])[facility] [place] ([facility])[address] AST [Catalytic activity/Vol] 27 U/L Normal <34 [facility] Comment on above: Performed By: #### L AB17, [id number] ####Pharmacy Informatics Manager: NATALIE GARCIA ([phone])[facility] [place] ([facility])[address] Bilirubin [Mass/Vol] 0.6 mg/dL Normal <1.2 [facility] Comment on above: Performed By: #### L AB17, [id number] ####Pharmacy Informatics Manager: NATALIE GARCIA ([phone])[facility] [place] ([facility])[address] Calcium [Mass/Vol] 9.0 mg/dL Normal 8.8-10.0 [facility] Comment on above: Performed By: #### L AB17, [id number] ####Pharmacy Informatics Manager: NATALIE GARCIA ([id number])[facility] [place] ([facility])155 [place] [address] [place] Chloride [Moles/Vol] 99 mmol/L Normal 98-107 [facility] Comment on above: Performed By: #### L AB17, [id number] ####Pharmacy Informatics Manager: NATALIE GARCIA ([id number])[facility] (SBHLAB)[address] CO2 [Moles/Vol] 28 mmol/L Normal 23-31 [facility] Comment on above: Performed By: #### L AB17, [id number] ####Pharmacy Informatics Manager: NATALIE GARCIA ([phone])[facility] ([facility])[address] Creatinine [Mass/Vol] 1.93 mg/dL High 0.57-1.11 [facility] Comment on above: Performed By: #### L AB17, [id number] ####Pharmacy Informatics Manager: NATALIE GARCIA ([phone])[facility] ([facility])[address] GLOMERULAR FILTRATION RATE ML/MIN/1.73 SQ M.PREDICTED 26.4 mL/min/1.73m*2 Low >60.0 [facility] Comment on above: Result Comment: Calc ulation based on the Chronic Kidney Disease Epidemiology Collaboration (CKD-EPI) equation refit without adjustment for race Performed By: #### L AB17, [id number] ####Pharmacy Informatics Manager: NATALIE GARCIA ([id number])[facility] (SBHLAB)[address] Glucose [Mass/Vol] 100 mg/dL Normal 82-115 [facility] Comment on above: Performed By: #### L AB17, [id number] ####Pharmacy Informatics Manager: NATALIE GARCIA ([id number])[facility] (SBHLAB)155 [place] [address] [place] Potassium [Moles/Vol] 3.5 mmol/L Normal 3.5-5.1 [facility] Comment on above: Result Comment: [facility] potassium values may be up to 0.5 mmol/L lower than serum values. Performed By: #### L AB17, [id number] ####Pharmacy Informatics Manager: NATALIE GARCIA ([phone])[facility] (SBHLAB)[address] Protein [Mass/Vol] 6.7 g/dL Normal 6.4-8.3 [facility] Comment on above: Performed By: #### L AB17, [id number] ####Pharmacy Informatics Manager: NATALIE GARCIA ([phone])[facility] (SBHLAB)[address] Sodium [Moles/Vol] 138 mmol/L Normal 136-145 [facility] Comment on above: Performed By: #### L AB17, [id number] ####Pharmacy Informatics Manager: NATALIE GARCIA ([phone])[facility] (SBHLAB)[address] Urea nitrogen [Mass/Vol] 19 mg/dL Normal 9-23 [facility] Comment on above: Performed By: #### L AB17, [id number] ####Pharmacy Informatics Manager: NATALIE GARCIA ([id number])[facility] (SBHLAB)[address] Comprehensive metabolic 1998 panelon 06-14-2025 Albumin [Mass/Vol] 2.3 g/dL Low 3.4 - 4.8 g/dL [facility] ALP [Catalytic activity/Vol] 135 U/L 40 - 150 U/L [facility] ALT [Catalytic activity/Vol] 16 U/L NINF - 30 U/L [facility] Anion gap [Moles/Vol] 11 mmol/L 3 - 13 mmol/L [facility] AST [Catalytic activity/Vol] 27 U/L NINF - 34 U/L [facility] Bilirubin [Mass/Vol] 0.6 mg/dL NINF - 1.2 mg/dL [facility] Calcium [Mass/Vol] 9 mg/dL 8.8 - 10. 0 mg/dL [facility] Chloride [Moles/Vol] 99 mmol/L 98 - 10 7 mmol/L [facility] CO2 [Moles/Vol] 28 mmol/L 23 - 31 mmol/L [facility] Creatinine [Mass/Vol] 1.93 mg/dL High 0.57 - 1.11 mg/dL [facility] GFR/1.73 sq M.predicted (S/P/Bld) [Vol rate/Area] 26.4 mL/min Low - PINF [facility] Glucose [Mass/Vol] 100 mg/dL 82 - 115 mg/dL [facility] Interpretation and review of laboratory results Abnormal [facility] Potassium [Moles/Vol] 3.5 mmol/L 3.5 - 5.1 mmol/L [facility] Protein [Mass/Vol] 6.7 g/dL 6.4 - 8.3 g/dL [facility] Sodium [Moles/Vol] 138 mmol/L 136 - 145 mmol/L [facility] Urea nitrogen [Mass/Vol] 19 mg/dL 9 - 23 mg/dL [facility] Consulton 06-14-2025 Consult Normal [facility] ECG 12-LEADon 06-14-2025 ECG 12-LEAD IMPRESSION: Sinus rhythm Atrial premature complex Left bundle branch block Compared to ECG 06/01/2025 11:15:32 No significant changes Electronically Signed On 06-14-2025 21:31:38 EDT by Grayson Haywood Normal [facility] Laboratory - Chemistry and C hemistry - challengeon 06-14-2025 Glucose [Mass/Vol] 106 mg/dL High 70 - 100 mg/dL [facility] TSH Qn 3.23 m[IU]/L [facility] Glucose [Mass/Vol] 100 mg/dL 70 - 100 mg/dL [facility] Glucose [Mass/Vol] 161 mg/dL High 70 - 100 mg/dL [facility] Glucose [Mass/Vol] 126 mg/dL High 70 - 100 mg/dL [facility] Magnesium [Mass/Vol] 1.9 mg/dL 1.6 - 2 .6 mg/dL [facility] Glucose [Mass/Vol] 125 mg/dL High 70 - 100 mg/dL [facility] MAGNESIUMon 06-14-2025 Magnesium [Mass/Vol] 1.9 mg/dL Normal 1.6-2.6 [facility] Comment on above: Result Comment: ORDE R COMMENTS:Higher values can be expected in females during menses. Performed By: #### L AB17, [id number] ####Pharmacy Informatics Manager: NATALIE GARCIA ([phone])[facility] (SBHLAB)[address] Magnesium [Mass/Vol]on 06-14 Interpretation and review of laboratory results Normal [facility] No Panel InformationOrdered By: Grayson Haywood on 06-14-2025 [place] 0 degrees [facility] [employer] Work Phone: [phone] [place] Interval 65 ms [facility] Work Phone: QRS [place] -11 degrees [facility] [employer] Work Phone: QRSD Interval 194 ms [facility] [employer] Work Phone: QT Interval 543 ms [facility] Work Phone: QTC Interval 552 ms [facility] Work Phone: T [place] 188 degrees [facility] [employer] Work Phone: [phone] [facility] [employer] Work Phone: [phone] No Panel Informationon 06-14 CV EPIPHANY [facility] Interpretation and review of laboratory results Abnormal [facility] Interpretation and review of laboratory results Normal [facility] RADIOLOGY SYSTEM [facility] Radiology Study observation (narrative) [facility] Interpretation and review of laboratory results Abnormal [facility] Interpretation and review of laboratory results Abnormal [facility] Interpretation and review of laboratory results Abnormal [facility] Nursing Noteon 06-14-2025 Nursing Note Normal [facility] Progress Noteon 06-14-2025 Progress Note [facility] Progress Note Normal [facility] Progress Note Normal [facility] Progress Note Normal [facility] Progress Note Normal [facility] THYROID STIMULATING HORMONEo n 06-14-2025 THYROID STIMULATING HORMONE 3.23 uIU/mL Normal 0.35-4.94 [facility] Comment on above: Performed By: #### L [id number] ####Pharmacy Informatics Manager: NATALIE GARCIA ([id number])[facility]ITAL[facility]ONTENEGROLaurel (SBHLAB)[address] TSH Qnon 06-14-2025 Interpretation and review of laboratory results Normal [facility] Vital signsOrdered By: Angelia Haywood on 06-14-2025 Heart rate 63 /min bpm [facility] Work Phone: [phone] 06-13-2025 [phone] Faxed OPAT to [facility] [place] [facility] [place]. OPAT not received. Emailed OPAT to [email or web address] as requested. Normal [facility] [id number] Normal [facility] Bacteria identified Aer cx N om (Unsp spec)Ordered By: Rachel Read on 06-13-2025 Gram Stain Result Many Polymorphonuclear leukocytes per low power field [facility] Gram Stain Result No organisms seen [facility] Interpretation and review of laboratory results Abnormal [facility] CBC W Auto Differential pane l (Bld)on 06-13-2025 Basophils (Bld) [#/Vol] 0.1 10*3/uL 0.0 - 0.2 10*3/uL [facility] Basophils/100 WBC (Bld) 0.8 % 0.0 - 2.0 % [facility] Eosinophils (Bld) [#/Vol] 0.2 10*3/uL 0.0 - 0.5 10*3/uL [facility] Eosinophils/100 WBC (Bld) 2.9 % 0.0 - 6.0 % [facility] Erythrocyte distribution width (RBC) [Ratio] 17.8 % High 11.5 - 15.0 % [facility] Hematocrit (Bld) [Volume fraction] 26.6 % Low 35.0 - 47.0 % [facility] Hemoglobin (Bld) [Mass/Vol] 8.4 g/dL Low 11.7 - 16.0 g/dL [facility] Immature granulocytes (Bld) [#/Vol] 0 10*3/uL NINF - 0.1 10*3/uL [facility] Immature granulocytes/100 WBC (Bld) 0.4 % 0.0 - 2.0 % [facility] Interpretation and review of laboratory results Abnormal [facility] Lymphocytes (Bld) [#/Vol] 1.1 10*3/uL 1.0 - 4.3 10*3/uL [facility] Lymphocytes/100 WBC (Bld) 15.5 % 15.0 - 45.0 % [facility] MCH (RBC) [Entitic mass] 26.3 pg 26.0 - 34.0 pg [facility] MCHC (RBC) [Mass/Vol] 31.6 % 30.5 - 36.0 % [facility] MCV (RBC) [Entitic vol] 83.4 fL 77.0 - 99.0 fL [facility] Monocytes (Bld) [#/Vol] 0.7 10*3/uL 0.0 - 0.9 10*3/uL [facility] Monocytes/100 WBC (Bld) 10.1 % 5.0 - 13.0 % [facility] Neutrophils (Bld) [#/Vol] 5 10*3/uL 1.8 - 7.5 10*3/uL [facility] Neutrophils/100 WBC (Bld) 70.3 % 38.0 - 82.0 % [facility] Nucleated RBC/100 WBC (Bld) [Ratio] 0 % [facility] Platelet mean volume (Bld) [Entitic vol] 9.5 fL 9.0 - 12.7 fL [facility] Platelets (Bld) [#/Vol] 235 10*3/uL 140 - 440 10*3/uL [facility] RBC (Bld) [#/Vol] 3.19 10*6/uL Low 3.80 - 5.2 0 10*6/uL [facility] WBC (Bld) [#/Vol] 7.2 10*3/uL 3.6 - 10.7 10*3/uL [facility] CBC WITH AUTO DIFFERENTIALon 06-13-2025 Basophils (Bld) [#/Vol] 0.1 10*3/uL Normal 0.0-0.2 [facility] Comment on above: Performed By: #### L [id number] ####Pharmacy Informatics Manager: NATALIE GARCIA ([phone])[facility] (SBAB)[address] [place] [address] Basophils/100 WBC (Bld) 0.8 % Normal 0.0-2.0 [facility] Comment on above: Performed By: #### L [id number] ####Pharmacy Informatics Manager: NATALIE GARCIA ([id number])[facility] [place] (SBHLAB)[address] Eosinophils (Bld) [#/Vol] 0.2 10*3/uL Normal 0.0-0.5 [facility] Comment on above: Performed By: #### L [id number] ####Pharmacy Informatics Manager: NATALIE GARCIA ([phone])[facility] [place] (SBHLAB)[address] Eosinophils/100 WBC (Bld) 2.9 % Normal 0.0-6.0 [facility] Comment on above: Performed By: #### L [id number] ####Pharmacy Informatics Manager: NATALIE GARCIA ([id number])[facility] ([facility] Erythrocyte distribution width (RBC) [Ratio] 17.8 % High 11.5-15.0 [facility] Comment on above: Performed By: #### L [id number] ####Pharmacy Informatics Manager: NATALIE GARCIA ([phone])[facility] Hematocrit (Bld) [Volume fraction] 26.6 % Low 35.0-47.0 [facility] Comment on above: Performed By: #### L [id number] ####Pharmacy Informatics Manager: NATALIE GARCIA ([phone])[facility] [place] (SBHLAB)[address] [place] [address] Hemoglobin (Bld) [Mass/Vol] 8.4 g/dL Low 11.7-16.0 [facility] Comment on above: Performed By: #### L [id number] ####Pharmacy Informatics Manager: NATALIE GARCIA ([phone])[facility] (SBHLAB)[address] IMMATURE GRANS % 0.4 % Normal 0.0-2.0 [facility] Comment on above: Performed By: #### L [id number] ####Pharmacy Informatics Manager: NATALIE GARCIA ([id number])[facility] (SBHLAB)[address] [place] [address] IMMATURE GRANS ABSOLUTE 0.0 10*3/uL Normal <0.1 [facility] Comment on above: Performed By: #### L [id number] ####Pharmacy Informatics Manager: NATALIE GARCIA ([phone])[facility] (SBHLAB)[address] [place] [address] Lymphocytes (Bld) [#/Vol] 1.1 10*3/uL Normal 1.0-4.3 [facility] Comment on above: Performed By: #### L [id number] ####Pharmacy Informatics Manager: NATALIE GARCIA ([id number])[facility] ([facility])[address] [place] [address] Lymphocytes/100 WBC (Bld) 15.5 % Normal 15.0-45.0 [facility] Comment on above: Performed By: #### L [id number] ####Pharmacy Informatics Manager: NATALIE GARCIA ([id number])[facility] ([facility])[address] [place] [address] MCH (RBC) [Entitic mass] 26.3 pg Normal 26.0-34.0 [facility] Comment on above: Performed By: #### L [id number] ####Pharmacy Informatics Manager: NATALIE GARCIA ([phone])[facility] (SBHLAB)[address] [place] [address] MCHC 31.6 % Normal 30.5-36.0 [facility] Comment on above: Performed By: #### L [id number] ####Pharmacy Informatics Manager: NATALIE GARCIA ([id number])[facility] (SBHLAB)[address] [place] [address] MCV (RBC) [Entitic vol] 83.4 fL Normal 77.0-99.0 [facility] Comment on above: Performed By: #### L [id number] ####Pharmacy Informatics Manager: NATALIE GARCIA ([phone])[facility] [place] (SBHLAB)[address] Monocytes (Bld) [#/Vol] 0.7 10*3/uL Normal 0.0-0.9 [facility] Comment on above: Performed By: #### L [id number] ####Pharmacy Informatics Manager: NATALIE GARCIA ([phone])[facility] [place] (SB[facility]AB)[address] Monocytes/100 WBC (Bld) 10.1 % Normal 5.0-13.0 [facility] Comment on above: Performed By: #### L [id number] ####Pharmacy Informatics Manager: NATALIE DENISETRICIA ([id number])[facility] [place] (SBHLAB)[address] NEUTROPHILS ABSOLUTE 5.0 10*3/uL Normal 1.8-7.5 [facility] Comment on above: Performed By: #### L [id number] ####Pharmacy Informatics Manager: NATALIE GARCIA ([id number])[facility] [place] (SB[facility])[address] Neutrophils/100 WBC (Bld) 70.3 % Normal 38.0-82.0 [facility] Comment on above: Performed By: #### L [id number] ####Pharmacy Informatics Manager: NATALIE GARCIA ([id number])[facility] [place] (SB[facility]AB)[address] NRBC 0.0 /100 WBCs Normal 0.0-2.0 [facility] Comment on above: Performed By: #### L [id number] ####Pharmacy Informatics Manager: NATALIE GARCIA ([id number])[facility] [place] (SBHLAB)[address] [place] [address] Platelet mean volume (Bld) [Entitic vol] 9.5 fL Normal 9.0-12.7 [facility] Comment on above: Performed By: #### L [id number] ####Pharmacy Informatics Manager: NATALIE GARCIA ([id number])[facility] [place] (SBHLAB)[address] Platelets (Bld) [#/Vol] 235 10*3/uL Normal 140-440 [facility] Comment on above: Performed By: #### L [id number] ####Pharmacy Informatics Manager: NATALIE GARCIA ([phone])[facility] [place] (SB[facility]AB)[address] RBC (Bld) [#/Vol] 3.19 10*6/uL Low 3.80-5.20 [facility] Comment on above: Performed By: #### L [id number] ####Pharmacy Informatics Manager: NATALIE GARCIA ([phone])[facility] [place] (SBHLAB)[address] WBC (Bld) [#/Vol] 7.2 10*3/uL Normal 3.6-10.7 [facility] Comment on above: Performed By: #### L [id number] ####Pharmacy Informatics Manager: NATALIE GARCIA ([phone])[facility] [place] (SBHLAB)[address] COMPREHENSIVE METABOLIC PANE Florentin 06-13-2025 Albumin [Mass/Vol] 2.3 g/dL Low 3.4-4.8 [facility] Comment on above: Performed By: #### L AB17, [id number] ####Pharmacy Informatics Manager: NATALIE GARCIA ([phone])[facility] [place] (SB[facility])[address] ALP [Catalytic activity/Vol] 127 U/L Normal 40-150 [facility] Comment on above: Performed By: #### L AB17, [id number] ####Pharmacy Informatics Manager: NATALIE GARCIA ([id number])[facility] [place] (SB[facility])[address] ALT [Catalytic activity/Vol] 12 U/L Normal <30 [facility] Comment on above: Performed By: #### L AB17, [id number] ####Pharmacy Informatics Manager: NATALIE GARCIA ([phone])[facility] (SBHLAB)[address] Anion gap [Moles/Vol] 12 mmol/L Normal 3-13 [facility] Comment on above: Performed By: #### L AB17, [id number] ####Pharmacy Informatics Manager: NATALIE GARCIA ([id number])[facility] (SBHLAB)[address] AST [Catalytic activity/Vol] 22 U/L Normal <34 [facility] Comment on above: Performed By: #### L AB17, [id number] ####Pharmacy Informatics Manager: NATALIE DENISETRICIA ([id number])[facility] (SBHLAB)[address] Bilirubin [Mass/Vol] 0.8 mg/dL Normal <1.2 [facility] Comment on above: Performed By: #### L AB17, [id number] ####Pharmacy Informatics Manager: NATALIE GARCIA ([phone])[facility] (HLAB)[address] Calcium [Mass/Vol] 9.3 mg/dL Normal 8.8-10.0 [facility] Comment on above: Performed By: #### L AB17, [id number] ####Pharmacy Informatics Manager: NATALIE GARCIA ([id number])[facility] ([facility])[address] Chloride [Moles/Vol] 97 mmol/L Low 98-107 [facility] Comment on above: Performed By: #### L AB17, [id number] ####Pharmacy Informatics Manager: NATALIE GARCIA ([phone])[facility] (SBHLAB)[address] CO2 [Moles/Vol] 25 mmol/L Normal 23-31 [facility] Comment on above: Performed By: #### L AB17, [id number] ####Pharmacy Informatics Manager: NATALIE GARCIA ([id number])[facility]ITAL[facility] (SBHLAB)[address] Creatinine [Mass/Vol] 3.37 mg/dL High 0.57-1.11 [facility] Comment on above: Performed By: #### L AB17, [id number] ####Pharmacy Informatics Manager: NATALIE GARCIA ([id number])[facility] (SBHLAB)[address] GLOMERULAR FILTRATION RATE ML/MIN/1.73 SQ M.PREDICTED 13.5 mL/min/1.73m*2 Low >60.0 [facility] Comment on above: Result Comment: Calc ulation based on the Chronic Kidney Disease Epidemiology Collaboration (CKD-EPI) equation refit without adjustment for race Performed By: #### L AB17, [id number] ####Pharmacy Informatics Manager: NATALIE GARCIA ([id number])[facility] (SBHLAB)[address] Glucose [Mass/Vol] 56 mg/dL Low 82-115 [facility] Comment on above: Performed By: #### L AB17, [id number] ####Pharmacy Informatics Manager: NATALIE GARCIA ([id number])[facility] ([facility])[address] Potassium [Moles/Vol] 3.5 mmol/L Normal 3.5-5.1 [facility] Comment on above: Result Comment: [facility] potassium values may be up to 0.5 mmol/L lower than serum values. Performed By: #### L AB17, [id number] ####Pharmacy Informatics Manager: NATALIE GARCIA ([id number])[facility] ([facility])[address] Protein [Mass/Vol] 6.8 g/dL Normal 6.4-8.3 [facility] Comment on above: Performed By: #### L AB17, [id number] ####Pharmacy Informatics Manager: NATALIE GARCIA ([id number])[facility] (SBHLAB)[address] Sodium [Moles/Vol] 134 mmol/L Low 136-145 [facility] Comment on above: Performed By: #### L AB17, [id number] ####Pharmacy Informatics Manager: NATALIE GARCIA ([id number])[facility] [place] (SBHLAB)[address] Urea nitrogen [Mass/Vol] 39 mg/dL High 9-23 [facility] Comment on above: Performed By: #### L AB17, [id number] ####Pharmacy Informatics Manager: NATALIE GARCIA ([id number])[facility] [place] (SBHLAB)[address] Comprehensive metabolic 1998 panelon 06-13-2025 Albumin [Mass/Vol] 2.3 g/dL Low 3.4 - 4.8 g/dL [facility] ALP [Catalytic activity/Vol] 127 U/L 40 - 150 U/L [facility] ALT [Catalytic activity/Vol] 12 U/L NINF - 30 U/L [facility] Anion gap [Moles/Vol] 12 mmol/L 3 - 13 mmol/L [facility] AST [Catalytic activity/Vol] 22 U/L NINF - 34 U/L [facility] Bilirubin [Mass/Vol] 0.8 mg/dL [facility] mg/dL [facility] Calcium [Mass/Vol] 9.3 mg/dL 8.8 - 10. 0 mg/dL [facility] Chloride [Moles/Vol] 97 mmol/L Low 98 - 10 7 mmol/L [facility] CO2 [Moles/Vol] 25 mmol/L 23 - 31 mmol/L [facility] Creatinine [Mass/Vol] 3.37 mg/dL High 0.57 - 1.11 mg/dL [facility] GFR/1.73 sq M.predicted (S/P/Bld) [Vol rate/Area] 13.5 mL/min Low - PINF [facility] Glucose [Mass/Vol] 56 mg/dL Low 82 - 115 mg/dL [facility] Interpretation and review of laboratory results Abnormal [facility] Potassium [Moles/Vol] 3.5 mmol/L 3.5 - 5.1 mmol/L [facility] Protein [Mass/Vol] 6.8 g/dL 6.4 - 8.3 g/dL [facility] Sodium [Moles/Vol] 134 mmol/L Low 136 - 145 mmol/L [facility] Urea nitrogen [Mass/Vol] 39 mg/dL High 9 - 23 mg/dL [facility] Laboratory - Chemistry and C hemistry - challengeon 06-13-2025 Glucose [Mass/Vol] 108 mg/dL High 70 - 100 mg/dL [facility] Glucose [Mass/Vol] 108 mg/dL High 70 - 100 mg/dL [facility] Glucose [Mass/Vol] 107 mg/dL High 70 - 100 mg/dL [facility] Glucose [Mass/Vol] 122 mg/dL High 70 - 100 mg/dL [facility] Magnesium [Mass/Vol] 2 mg/dL 1.6 - 2 .6 mg/dL [facility] Glucose [Mass/Vol] 67 mg/dL Low 70 - 100 mg/dL [facility] Glucose [Mass/Vol] 123 mg/dL High 70 - 100 mg/dL [facility] Laboratory - Microbiology an d Antimicrobial susceptibilityOrdered By: Rachel Schmitt on 06-13-2025 Bacteria identified Aer cx Nom (Unsp spec) Few respiratory dave present. [facility] Bacteria identified Aer cx Nom (Unsp spec) Rare Pseudomonas aeruginosa Abnormal [facility] MAGNESIUMon 06-13-2025 Magnesium [Mass/Vol] 2.0 mg/dL Normal 1.6-2.6 [facility] Comment on above: Result Comment: DORIAN Knight COMMENTS:Higher values can be expected in females during menses. Performed By: #### L AB17, [id number] ####Pharmacy Informatics Manager: NATALIE GARCIA ([id number])[facility] ([facility] [place] [address] Magnesium [Mass/Vol]on 06-13 Interpretation and review of laboratory results Normal [facility] No Panel Informationon 06-13 Interpretation and review of laboratory results Abnormal [facility] Interpretation and review of laboratory results Abnormal [facility] Interpretation and review of laboratory results Abnormal [facility] Interpretation and review of laboratory results Abnormal [facility] Interpretation and review of laboratory results Abnormal [facility] Interpretation and review of laboratory results Abnormal [facility] Nursing Noteon 06-13-2025 Nursing Note Normal [facility] Nursing Note Normal [facility] Progress Noteon 06-13-2025 Progress Note Normal [facility] [employer] Progress Note Normal [facility] [facility] [facility] Progress Note Normal [facility] [facility] [facility] [employer] [facility] Progress Note Normal [facility] [employer] Progress Note Normal [facility] [employer] [id number] 06-12-2025 [id number] Sent updated notes t o [facility] [employer] per TCC request. Await review and response regarding ability to accept. TCC notified. Normal [facility] [id number] Normal [facility] Bacteria identified Aer cx N om (Lower resp)Ordered By: Uma Mcgarry on 06-12-2025 Gram Stain Result Many Polymorphonuclear leukocytes per low power field Abnormal [facility] Gram Stain Result Rare Epithelial cell s per low power field Abnormal [facility] Gram Stain Result Negative Abnormal [facility] Gram Stain Result Positive Abnormal [facility] ealth Interpretation and review of laboratory results Abnormal [facility] Bacteria identified Anaer cx Nom (Unsp spec)Ordered By: Brooklyn Ramos on 06-12-2025 Interpretation and review of laboratory results Normal [facility] Bacteria identified Cx Nom ( Bld)on 06-12-2025 Interpretation and review of laboratory results Normal [facility] CBC (HEMOGRAM)on 06-12-2025 Erythrocyte distribution width (RBC) [Ratio] 18.3 % High 11.5-15.0 [facility] Comment on above: Performed By: #### L [id number] ####Pharmacy Informatics Manager: NATALIE GARCIA ([id number])[facility] MELISSA (SBAB)[address] [place] [address] Hematocrit (Bld) [Volume fraction] 25.0 % Low 35.0-47.0 [facility] Comment on above: Performed By: #### L [id number] ####Pharmacy Informatics Manager: NATALIE GARCIA ([id number])[facility] (SBAB)[address] Hemoglobin (Bld) [Mass/Vol] 7.9 g/dL Low 11.7-16.0 [facility] Comment on above: Performed By: #### L [id number] ####Pharmacy Informatics Manager: NATALIE GARCIA ([id number])[facility] REHMANELIAS (SBAB)[address] MCH (RBC) [Entitic mass] 26.5 pg Normal 26.0-34.0 [facility] Comment on above: Performed By: #### L [id number] ####Pharmacy Informatics Manager: NATALIE GARCIA ([id number])[facility]ITALJos[facility] Miguel [facility]ENTER[facility] ([facility])[address] MCHC 31.6 % Normal 30.5-36.0 [facility] Comment on above: Performed By: #### L [id number] ####Pharmacy Informatics Manager: NATALIE GARCIA ([id number])[facility] REHMANELI[facility] ([facility])[address] MCV (RBC) [Entitic vol] 83.9 fL Normal 77.0-99.0 [facility] Comment on above: Performed By: #### L [id number] ####Pharmacy Informatics Manager: NATALIE GARCIA ([id number])[facility] TAMARELIAS ([facility])[address] Platelet mean volume (Bld) [Entitic vol] 9.6 fL Normal 9.0-12.7 [facility] Comment on above: Performed By: #### L [id number] ####Pharmacy Informatics Manager: NATALIE GARCIA ([id number])[facility]AMARELI[facility] ([facility])[address] Platelets (Bld) [#/Vol] 224 10*3/uL Normal 140-440 [facility] Comment on above: Performed By: #### L [id number] ####Pharmacy Informatics Manager: NATALIE DENISETRICIA ([phone])[facility] (SBHLAB)[address] [place] [address] RBC (Bld) [#/Vol] 2.98 10*6/uL Low 3.80-5.20 [facility] Comment on above: Performed By: #### L [id number] ####Pharmacy Informatics Manager: NATALIE GARCIA ([id number])[facility] (SBHLAB)[address] [place] [address] WBC (Bld) [#/Vol] 6.9 10*3/uL Normal 3.6-10.7 [facility] Comment on above: Performed By: #### L [id number] ####Pharmacy Informatics Manager: NATALIE DENISETRICIA ([phone])[facility] ([facility])[address] [place] [address] CBC panel Auto (Bld)on 06-12 Erythrocyte distribution width (RBC) [Ratio] 18.3 % High 11.5 - 15.0 % [facility] Hematocrit (Bld) [Volume fraction] 25 % Low 35.0 - 47.0 % [facility] Hemoglobin (Bld) [Mass/Vol] 7.9 g/dL Low 11.7 - 16.0 g/dL [facility] Interpretation and review of laboratory results Abnormal [facility] MCH (RBC) [Entitic mass] 26.5 pg 26.0 - 34.0 pg [facility] MCHC (RBC) [Mass/Vol] 31.6 % 30.5 - 36.0 % [facility] MCV (RBC) [Entitic vol] 83.9 fL 77.0 - 99.0 fL [facility] [employer] Platelet mean volume (Bld) [Entitic vol] 9.6 fL 9.0 - 12.7 fL [facility] Platelets (Bld) [#/Vol] 224 10*3/uL 140 - 440 10*3/uL [facility] RBC (Bld) [#/Vol] 2.98 10*6/uL Low 3.80 - 5.2 0 10*6/uL [facility] WBC (Bld) [#/Vol] 6.9 10*3/uL 3.6 - 10.7 10*3/uL [facility] COMPREHENSIVE METABOLIC PANE Florentin 06-12-2025 Albumin [Mass/Vol] 2.2 g/dL Low 3.4-4.8 [facility] Comment on above: Performed By: #### L AB17 ####Pharmacy Informatics Manager: NATALIE GARCIA ([id number])[facility] [place] (SBHLAB)[address] ALP [Catalytic activity/Vol] 115 U/L Normal 40-150 [facility] Comment on above: Performed By: #### L AB17 ####Pharmacy Informatics Manager: NATALIE GARCIA ([phone])[facility] [place] (SBHLAB)[address] ALT [Catalytic activity/Vol] 9 U/L Normal <30 [facility] Comment on above: Performed By: #### L AB17 ####Pharmacy Informatics Manager: NATALIE GARCIA ([id number])[facility] [place] (SBHLAB)[address] Anion gap [Moles/Vol] 12 mmol/L Normal 3-13 [facility] Comment on above: Performed By: #### L AB17 ####Pharmacy Informatics Manager: NATALIE GARCIA ([id number])[facility] [place] (SBHLAB)[address] AST [Catalytic activity/Vol] 21 U/L Normal <34 [facility] Comment on above: Performed By: #### L AB17 ####Pharmacy Informatics Manager: NATALIE GARCIA ([id number])[facility] [place] (SBHLAB)[address] Bilirubin [Mass/Vol] 0.7 mg/dL Normal <1.2 [facility] Comment on above: Performed By: #### L AB17 ####Pharmacy Informatics Manager: NATALIE GARCIA ([id number])[facility] [place] (SBHLAB)[address] Calcium [Mass/Vol] 8.7 mg/dL Low 8.8-10.0 [facility] Comment on above: Performed By: #### L AB17 ####Pharmacy Informatics Manager: NATALIE GARCIA ([id number])[facility]ITALJos[facility] [place] (SBHLAB)[address] Chloride [Moles/Vol] 98 mmol/L Normal 98-107 [facility] Comment on above: Performed By: #### L AB17 ####Pharmacy Informatics Manager: NATALIE GARCIA ([id number])[facility]ITALA [facility] (SBHLAB)[address] CO2 [Moles/Vol] 27 mmol/L Normal 23-31 [facility] Comment on above: Performed By: #### L AB17 ####Pharmacy Informatics Manager: NATALIE GARCIA ([id number])[facility] ([facility])[address] Creatinine [Mass/Vol] 2.53 mg/dL High 0.57-1.11 [facility] Comment on above: Performed By: #### L AB17 ####Pharmacy Informatics Manager: NATALIE GARCIA ([id number])[facility])[address] GLOMERULAR FILTRATION RATE ML/MIN/1.73 SQ M.PREDICTED 19.1 mL/min/1.73m*2 Low >60.0 [facility] Comment on above: Result Comment: Calc ulation based on the Chronic Kidney Disease Epidemiology Collaboration (CKD-EPI) equation refit without adjustment for race Performed By: #### L AB17 ####Pharmacy Informatics Manager: NATALIE GARCIA ([id number])[facility]A [facility] (HLAB)[address] Glucose [Mass/Vol] 165 mg/dL High 82-115 [facility] Comment on above: Performed By: #### L AB17 ####Pharmacy Informatics Manager: NATALIE GARCIA ([phone])[facility] [place] (SBHLAB)[address] Potassium [Moles/Vol] 3.7 mmol/L Normal 3.5-5.1 [facility] Comment on above: Result Comment: [facility] potassium values may be up to 0.5 mmol/L lower than serum values. Performed By: #### L AB17 ####Pharmacy Informatics Manager: NATALIE GARCIA ([phone])[facility] [place] (SBHLAB)[address] Protein [Mass/Vol] 6.4 g/dL Normal 6.4-8.3 [facility] Comment on above: Performed By: #### L AB17 ####Pharmacy Informatics Manager: NATALIE GARCIA ([id number])[facility]A [facility] (SBHLAB)[address] Sodium [Moles/Vol] 137 mmol/L Normal 136-145 [facility] Comment on above: Performed By: #### L AB17 ####Pharmacy Informatics Manager: NATALIE GARCIA ([id number])[facility]A [facility] (SBHLAB)[address] Urea nitrogen [Mass/Vol] 26 mg/dL High 9-23 [facility] Comment on above: Performed By: #### L AB17 ####Pharmacy Informatics Manager: NATALIE GARCIA ([id number])[facility] ([facility])[address] Comprehensive metabolic 1998 panelOrdered By: Armando Viramontes on 06-12-2025 Albumin [Mass/Vol] 2.2 g/dL Low 3.4 - 4.8 g/dL [facility] ALP [Catalytic activity/Vol] 115 U/L 40 - 150 U/L [facility] ALT [Catalytic activity/Vol] 9 U/L NINF - 30 U/L [facility] Anion gap [Moles/Vol] 12 mmol/L 3 - 13 mmol/L [facility] AST [Catalytic activity/Vol] 21 U/L NINF - 34 U/L [facility] Bilirubin [Mass/Vol] 0.7 mg/dL NINF - 1.2 mg/dL [facility] Calcium [Mass/Vol] 8.7 mg/dL Low 8.8 - 10. 0 mg/dL [facility] Chloride [Moles/Vol] 98 mmol/L 98 - 10 7 mmol/L [facility] CO2 [Moles/Vol] 27 mmol/L 23 - 31 mmol/L [facility] Creatinine [Mass/Vol] 2.53 mg/dL High 0.57 - 1.11 mg/dL [facility] GFR/1.73 sq M.predicted (S/P/Bld) [Vol rate/Area] 19.1 mL/min Low - PINF [facility] Glucose [Mass/Vol] 165 mg/dL High 82 - 115 mg/dL [facility] Interpretation and review of laboratory results Abnormal [facility] Potassium [Moles/Vol] 3.7 mmol/L 3.5 - 5.1 mmol/L [facility] Protein [Mass/Vol] 6.4 g/dL 6.4 - 8.3 g/dL [facility] Sodium [Moles/Vol] 137 mmol/L 136 - 145 mmol/L [facility] Urea nitrogen [Mass/Vol] 26 mg/dL High 9 - 23 mg/dL [facility] Laboratory - Chemistry and C hemistry - challengeon 06-12-2025 Glucose [Mass/Vol] 157 mg/dL High 70 - 100 mg/dL [facility] Glucose [Mass/Vol] 147 mg/dL High 70 - 100 mg/dL [facility] Glucose [Mass/Vol] 165 mg/dL High 70 - 100 mg/dL [facility] Glucose [Mass/Vol] 171 mg/dL High 70 - 100 mg/dL [facility] Glucose [Mass/Vol] 166 mg/dL High 70 - 100 mg/dL [facility] Laboratory - Microbiology an d Antimicrobial susceptibilityOrdered By: Brooklyn Ramos on 06-12-2025 Bacteria identified Anaer cx Nom (Unsp spec) No growth at 5 days [facility] Laboratory - Microbiology an d Antimicrobial susceptibilityon 06-12-2025 Bacteria identified Cx Nom (Bld) No growth at 5 days [facility] Laboratory - Microbiology an d Antimicrobial susceptibilityOrdered By: Uma Mcgarry on 06-12-2025 Bacteria identified Aer cx Nom (Lower resp) Few respiratory dave present. [facility] Bacteria identified Aer cx Nom (Lower resp) Moderate Serratia marcescens Abnormal [facility] Bacteria identified Aer cx Nom (Lower resp) Moderate Stenotrophomonas maltophilia Abnormal [facility] Bacteria identified Aer cx Nom (Lower resp) Moderate Pseudomonas aeruginosa Abnormal [facility] No Panel Informationon 06-12 Interpretation and review of laboratory results Abnormal [facility] Interpretation and review of laboratory results Abnormal [facility] Interpretation and review of laboratory results Abnormal [facility] RADIOLOGY SYSTEM [facility] Radiology Study observation (narrative) [facility] Interpretation and review of laboratory results Abnormal [facility] Interpretation and review of laboratory results Abnormal [facility] No Panel InformationOrdered By: Yamil Newby on 06-12-2025 [facility] Work Phone: Nursing Noteon 06-12-2025 Nursing Note Normal [facility] Nursing Note Patient arrived from 222 on vent to trach, verbal consent was obtained. Patient was placed supine on exam table prepped and draped in sterile fashion. Telemetry monitors placed, vitals monitored. Normal [facility] Progress Noteon 06-12-2025 [facility] [employer] Progress Note [facility] [employer] [facility] [employer] Progress Note Normal [facility] [employer] [id number] 06-11-2025 [id number] Normal [facility] Bacteria identified Aer cx N om (Unsp spec)on 06-11-2025 Gram Stain Result Few Polymorphonuclea r leukocytes per low power field [facility] Gram Stain Result No organisms seen [facility] CBC (HEMOGRAM)on 06-11-2025 Erythrocyte distribution width (RBC) [Ratio] 18.0 % High 11.5-15.0 [facility] Comment on above: Performed By: #### L [id number] ####Pharmacy Informatics Manager: NATALIE GARCIA ([id number])[facility] ([facility] [place] [address] Hematocrit (Bld) [Volume fraction] 25.8 % Low 35.0-47.0 [facility] Comment on above: Performed By: #### L [id number] ####Pharmacy Informatics Manager: NATALIE GARCIA ([id number])[place] REHMANELIAS (SBHLAB)[address] Hemoglobin (Bld) [Mass/Vol] 8.3 g/dL Low 11.7-16.0 [facility] Comment on above: Performed By: #### L [id number] ####Pharmacy Informatics Manager: NATALIE GARCIA ([id number])[facility]ITAL[facility] (SBHLAB)[address] MCH (RBC) [Entitic mass] 26.3 pg Normal 26.0-34.0 [facility] Comment on above: Performed By: #### L [id number] ####Pharmacy Informatics Manager: NATALIE GARCIA ([phone])[facility]ITALJosé Miguel REHMANSANTA [facility] INDI[facility]OSPITALLaurel (SBHLAB)[address] MCHC 32.2 % Normal 30.5-36.0 [facility] Comment on above: Performed By: #### L [id number] ####Pharmacy Informatics Manager: NATALIE GARCIA ([id number])[facility]ITALJosé Miguel REHMANSANTA FE INDI[facility] HOSPITALLaurel (SBHLAB)[address] MCV (RBC) [Entitic vol] 81.6 fL Normal 77.0-99.0 [facility] Comment on above: Performed By: #### L [id number] ####Pharmacy Informatics Manager: NATALIE GARCIA ([id number])[facility]ITALJos[facility] RHEMANELI[facility] (SBHLAB)[address] Platelet mean volume (Bld) [Entitic vol] 9.5 fL Normal 9.0-12.7 [facility] Comment on above: Performed By: #### L [id number] ####Pharmacy Informatics Manager: NATALIE GARCIA ([id number])[facility]ITALJosé Miguel REHMANSANTA FE INDI[facility]OSPITALLaurel (SBHLAB)[address] Platelets (Bld) [#/Vol] 235 10*3/uL Normal 140-440 [facility] Comment on above: Performed By: #### L [id number] ####Pharmacy Informatics Manager: NATALIE GARCIA ([id number])[facility]ITALJos[facility] Miguel [facility] (SBHLAB)[address] RBC (Bld) [#/Vol] 3.16 10*6/uL Low 3.80-5.20 [facility] Comment on above: Performed By: #### L [id number] ####Pharmacy Informatics Manager: NATALIE GARCIA ([id number])[facility]PITALJosé Miguel [facility]ON[facility] (SBHLAB)[address] WBC (Bld) [#/Vol] 7.4 10*3/uL Normal 3.6-10.7 [facility] Comment on above: Performed By: #### L [id number] ####Pharmacy Informatics Manager: NATALIE GARCIA ([id number])[facility]ITALJos[facility] (SBHLAB)[address] [place] [address] CBC panel Auto (Bld)on 06-11 Erythrocyte distribution width (RBC) [Ratio] 18 % High 11.5 - 15.0 % [facility] [employer] Hematocrit (Bld) [Volume fraction] 25.8 % Low 35.0 - 47.0 % [facility] Hemoglobin (Bld) [Mass/Vol] 8.3 g/dL Low 11.7 - 16.0 g/dL [facility] Interpretation and review of laboratory results Abnormal [facility] MCH (RBC) [Entitic mass] 26.3 pg 26.0 - 34.0 pg [facility] MCHC (RBC) [Mass/Vol] 32.2 % 30.5 - 36.0 % [facility] [employer] MCV (RBC) [Entitic vol] 81.6 fL 77.0 - 99.0 fL [facility] [employer] Platelet mean volume (Bld) [Entitic vol] 9.5 fL 9.0 - 12.7 fL [facility] [employer] Platelets (Bld) [#/Vol] 235 10*3/uL 140 - 440 10*3/uL [facility] [employer] RBC (Bld) [#/Vol] 3.16 10*6/uL Low 3.80 - 5.2 0 10*6/uL [facility] WBC (Bld) [#/Vol] 7.4 10*3/uL 3.6 - 10.7 10*3/uL [facility] COMPREHENSIVE METABOLIC PANE Florentin 06-11-2025 Albumin [Mass/Vol] 2.3 g/dL Low 3.4-4.8 [facility] Comment on above: Performed By: #### L AB17 ####Pharmacy Informatics Manager: NATALIE GARCIA ([id number])[facility] [place] (SBHLAB)[address] ALP [Catalytic activity/Vol] 117 U/L Normal 40-150 [facility] Comment on above: Performed By: #### L AB17 ####Pharmacy Informatics Manager: NATALIE GARCIA ([phone])[facility]ITALA [facility] (SBHLAB)[address] ALT [Catalytic activity/Vol] 12 U/L Normal <30 [facility] Comment on above: Performed By: #### L AB17 ####Pharmacy Informatics Manager: NATALIE GARCIA ([id number])[facility]ITALA BARBSANTA FE INDI[facility] HOSPITALN (SBHLAB)[address] Anion gap [Moles/Vol] 11 mmol/L Normal 3-13 [facility] Comment on above: Performed By: #### L AB17 ####Pharmacy Informatics Manager: NATALIE GARCIA ([id number])[facility] [place] (SBHLAB)[address] AST [Catalytic activity/Vol] 26 U/L Normal <34 [facility] Comment on above: Performed By: #### L AB17 ####Pharmacy Informatics Manager: NATALIE GARCIA ([id number])[facility] [place] (SBHLAB)[address] Bilirubin [Mass/Vol] 0.8 mg/dL Normal <1.2 [facility] Comment on above: Performed By: #### L AB17 ####Pharmacy Informatics Manager: NATALIE GARCIA ([phone])[facility] ([facility])[address] Calcium [Mass/Vol] 9.2 mg/dL Normal 8.8-10.0 [facility] Comment on above: Performed By: #### L AB17 ####Pharmacy Informatics Manager: NATALIE GARCIA ([id number])[facility]ITAL[facility] REHMANELIAS (SBHLAB)[address] Chloride [Moles/Vol] 99 mmol/L Normal 98-107 [facility] Comment on above: Performed By: #### L AB17 ####Pharmacy Informatics Manager: NATALIE GARCIA ([id number])[facility]ITALJos[facility] Miguel [place] (SBHLAB)[address] CO2 [Moles/Vol] 22 mmol/L Low 23-31 [facility] Comment on above: Performed By: #### L AB17 ####Pharmacy Informatics Manager: NATALIE GARCIA ([id number])[facility]ITALJos[facility] Miguel REHMANELI[facility] (SBHLAB)[address] Creatinine [Mass/Vol] 4.10 mg/dL High 0.57-1.11 [facility] Comment on above: Performed By: #### L AB17 ####Pharmacy Informatics Manager: NATALIE GARCIA ([id number])[facility]ITALJos[facility] REHMANEL[facility] (HLAB)[address] GLOMERULAR FILTRATION RATE ML/MIN/1.73 SQ M.PREDICTED 10.7 mL/min/1.73m*2 Low >60.0 [facility] Comment on above: Result Comment: Calc ulation based on the Chronic Kidney Disease Epidemiology Collaboration (CKD-EPI) equation refit without adjustment for race Performed By: #### L AB17 ####Pharmacy Informatics Manager: NATALIE GARCIA ([id number])[facility]ITALJosé Miguel [facility]BMAGNUSN (SBHLAB)[address] [place] [address] [place] Glucose [Mass/Vol] 149 mg/dL High 82-115 [facility] Comment on above: Performed By: #### L AB17 ####Pharmacy Informatics Manager: NATALIE GARCIA ([id number])[facility]ITALJos[facility] Miguel BARBMAGNUSN (SBHLAB)[address] [place] [address] [place] Potassium [Moles/Vol] 3.9 mmol/L Normal 3.5-5.1 [facility] Comment on above: Result Comment: [facility] potassium values may be up to 0.5 mmol/L lower than serum values. Performed By: #### L AB17 ####Pharmacy Informatics Manager: NATALIE GARCIA ([id number])[facility] ([facility])[address] Protein [Mass/Vol] 6.6 g/dL Normal 6.4-8.3 [facility] Comment on above: Performed By: #### L AB17 ####Pharmacy Informatics Manager: NATALIE GARCIA ([id number])[facility]A [facility] (SBHLAB)[address] Sodium [Moles/Vol] 132 mmol/L Low 136-145 [facility] Comment on above: Performed By: #### L AB17 ####Pharmacy Informatics Manager: NATALIE GARCIA ([id number])[facility] ([facility])[address] Urea nitrogen [Mass/Vol] 49 mg/dL High 9-23 [facility] Comment on above: Performed By: #### L AB17 ####Pharmacy Informatics Manager: NATALIE GARCIA ([id number])[facility] ([facility])[address] Comprehensive metabolic 1998 panelon 06-11-2025 Albumin [Mass/Vol] 2.3 g/dL Low 3.4 - 4.8 g/dL [facility] ALP [Catalytic activity/Vol] 117 U/L 40 - 150 U/L [facility] ALT [Catalytic activity/Vol] 12 U/L NINF - 30 U/L [facility] Anion gap [Moles/Vol] 11 mmol/L 3 - 13 mmol/L [facility] AST [Catalytic activity/Vol] 26 U/L NINF - 34 U/L [facility] Bilirubin [Mass/Vol] 0.8 mg/dL NINF - 1.2 mg/dL [facility] Calcium [Mass/Vol] 9.2 mg/dL 8.8 - 10. 0 mg/dL [facility] Chloride [Moles/Vol] 99 mmol/L 98 - 10 7 mmol/L [facility] CO2 [Moles/Vol] 22 mmol/L Low 23 - 31 mmol/L [facility] Creatinine [Mass/Vol] 4.1 mg/dL High 0.57 - 1.11 mg/dL [facility] GFR/1.73 sq M.predicted (S/P/Bld) [Vol rate/Area] 10.7 mL/min Low - PINF [facility] Glucose [Mass/Vol] 149 mg/dL High 82 - 115 mg/dL [facility] Interpretation and review of laboratory results Abnormal [facility] Potassium [Moles/Vol] 3.9 mmol/L 3.5 - 5.1 mmol/L [facility] Protein [Mass/Vol] 6.6 g/dL 6.4 - 8.3 g/dL [facility] Sodium [Moles/Vol] 132 mmol/L Low 136 - 145 mmol/L [facility] Urea nitrogen [Mass/Vol] 49 mg/dL High 9 - 23 mg/dL [facility] Laboratory - Chemistry and C hemistry - challengeon 06-11-2025 Glucose [Mass/Vol] 192 mg/dL High 70 - 100 mg/dL [facility] Glucose [Mass/Vol] 199 mg/dL High 70 - 100 mg/dL [facility] Glucose [Mass/Vol] 139 mg/dL High 70 - 100 mg/dL [facility] Glucose [Mass/Vol] 163 mg/dL High 70 - 100 mg/dL [facility] Laboratory - Microbiology an d Antimicrobial susceptibilityon 06-11-2025 Bacteria identified Aer cx Nom (Unsp spec) No growth at 4 days [facility] No Panel Informationon 06-11 Interpretation and review of laboratory results Abnormal [facility] Interpretation and review of laboratory results Abnormal [facility] Interpretation and review of laboratory results Abnormal [facility] Interpretation and review of laboratory results Abnormal [facility] Nursing Noteon 06-11-2025 Nursing Note Normal [facility] Progress Noteon 06-11-2025 Progress [facility] Progress [facility] Progress [facility] Normal [facility] Progress Note Normal [facility] SHS BLOOD TYPE AND SCREEN GELon 06-10-2025 ABO GROUPING A Normal [facility] Comment on above: Performed By: #### L [id number] ####Pharmacy Informatics Manager: NATALIE GARCIA ([phone])[facility] ([facility])[address] RH TYPE IN BLOOD Positive Normal [facility] Comment on above: Performed By: #### L AB276 ####Pharmacy Informatics Manager: NATALIE GARCIA ([phone])[facility] ([facility])[address] Blood type and Crossmatch pa yordy (Bld)on 06-10-2025 ABO group Nom (Bld) A [facility] Blood group antibody screen GEL Ql Negative [facility] D Ag Ql (RBC) Positive [facility] CBC (HEMOGRAM)on 06-10-2025 Erythrocyte distribution width (RBC) [Ratio] 19.1 % High 11.5-15.0 [facility] Comment on above: Performed By: #### L [id number] ####Pharmacy Informatics Manager: NATALIE GARCIA ([phone])[facility] ([facility])[address] [place] [address] Hematocrit (Bld) [Volume fraction] 22.4 % Low 35.0-47.0 [facility] Comment on above: Performed By: #### L AB294 ####Pharmacy Informatics Manager: NATALIE GARCIA ([phone])[facility] ([facility])[address] Hemoglobin (Bld) [Mass/Vol] 6.8 g/dL Critically low 11.7-16.0 [facility] Comment on above: Performed By: #### L [id number] ####Pharmacy Informatics Manager: NATALIE GARCIA ([phone])[facility] ([facility])[address] MCH (RBC) [Entitic mass] 25.7 pg Low 26.0-34.0 [facility] Comment on above: Performed By: #### L AB294 ####Pharmacy Informatics Manager: NATALIE GARCIA ([phone])[facility] ([facility])[address] MCHC 30.4 % Low 30.5-36.0 [facility] Comment on above: Performed By: #### L AB294 ####Pharmacy Informatics Manager: NATALIE GARCIA ([phone])[facility] ([facility])[address] MCV (RBC) [Entitic vol] 84.5 fL Normal 77.0-99.0 [facility] Comment on above: Performed By: #### L [id number] ####Pharmacy Informatics Manager: NATALIE GARCIA ([phone])[facility]ITAL[facility]SANT[facility] INDI[facility] HOSPITALLaurel ([facility])[address] Platelet mean volume (Bld) [Entitic vol] 9.7 fL Normal 9.0-12.7 [facility] Comment on above: Performed By: #### L AB294 ####Pharmacy Informatics Manager: NATALIE GARCIA ([phone])[facility] ([facility])[address] Platelets (Bld) [#/Vol] 228 10*3/uL Normal 140-440 [facility] Comment on above: Performed By: #### L AB294 ####Pharmacy Informatics Manager: NATALIE GARCIA ([phone])[facility]ITAL[facility] [place] ([facility])[address] RBC (Bld) [#/Vol] 2.65 10*6/uL Low 3.80-5.20 [facility] Comment on above: Performed By: #### L AB294 ####Pharmacy Informatics Manager: NATALIE GARCIA ([phone])[facility]ITAL[facility]ITALN ([facility])[address] [place] [address] [place] WBC (Bld) [#/Vol] 6.4 10*3/uL Normal 3.6-10.7 [facility] Comment on above: Performed By: #### L AB294 ####Pharmacy Informatics Manager: NATALIE GARCIA ([phone])[facility] ([facility])[address] CBC panel Auto (Bld)on 06-10 Erythrocyte distribution width (RBC) [Ratio] 19.1 % High 11.5 - 15.0 % [facility] Hematocrit (Bld) [Volume fraction] 22.4 % Low 35.0 - 47.0 % [facility] Hemoglobin (Bld) [Mass/Vol] 6.8 g/dL Critically low 11.7 - 16.0 g/dL [facility] Interpretation and review of laboratory results Abnormal [facility] MCH (RBC) [Entitic mass] 25.7 pg Low 26.0 - 34.0 pg [facility] MCHC (RBC) [Mass/Vol] 30.4 % Low 30.5 - 36.0 % [facility] MCV (RBC) [Entitic vol] 84.5 fL 77.0 - 99.0 fL [facility] Platelet mean volume (Bld) [Entitic vol] 9.7 fL 9.0 - 12.7 fL [facility] Platelets (Bld) [#/Vol] 228 10*3/uL 140 - 440 10*3/uL [facility] RBC (Bld) [#/Vol] 2.65 10*6/uL Low 3.80 - 5.2 0 10*6/uL [facility] WBC (Bld) [#/Vol] 6.4 10*3/uL 3.6 - 10.7 10*3/uL [facility] COMPREHENSIVE METABOLIC PANE Florentin 06-10-2025 Albumin [Mass/Vol] 2.3 g/dL Low 3.4-4.8 [facility] Comment on above: Performed By: #### L AB17 ####Pharmacy Informatics Manager: NATALIE GARCIA ([phone])[facility] ([facility])[address] ALP [Catalytic activity/Vol] 112 U/L Normal 40-150 [facility] Comment on above: Performed By: #### L AB17 ####Pharmacy Informatics Manager: NATALIE GARCIA ([phone])[facility] ([facility])[address] ALT [Catalytic activity/Vol] 10 U/L Normal <30 [facility] Comment on above: Performed By: #### L AB17 ####Pharmacy Informatics Manager: NATALIE DENISETRICIA ([phone])[facility] ([facility])[address] Anion gap [Moles/Vol] 10 mmol/L Normal 3-13 [facility] Comment on above: Performed By: #### L AB17 ####Pharmacy Informatics Manager: NATALIE DENISETRICIA ([phone])[facility] [place] ([facility])[address] AST [Catalytic activity/Vol] 25 U/L Normal <34 [facility] Comment on above: Performed By: #### L AB17 ####Pharmacy Informatics Manager: NATALIE DENISETRICIA ([phone])[facility] ([facility])[address] Bilirubin [Mass/Vol] 0.5 mg/dL Normal <1.2 [facility] Comment on above: Performed By: #### L AB17 ####Pharmacy Informatics Manager: NATALIE DENISETRICIA ([phone])[facility] ([facility])[address] Calcium [Mass/Vol] 9.0 mg/dL Normal 8.8-10.0 [facility] Comment on above: Performed By: #### L AB17 ####Pharmacy Informatics Manager: NATALIE DENISETRICIA ([phone])[facility] [place] ([facility])[address] [place] [address] [place] Chloride [Moles/Vol] 99 mmol/L Normal 98-107 [facility] Comment on above: Performed By: #### L AB17 ####Pharmacy Informatics Manager: NATALIE GARCIA ([phone])[facility] ([facility])[address] CO2 [Moles/Vol] 25 mmol/L Normal 23-31 [facility] Comment on above: Performed By: #### L AB17 ####Pharmacy Informatics Manager: NATALIE GARCIA ([phone])[facility]ITALJos[facility] Miguel [facility] ([facility])[address] Creatinine [Mass/Vol] 3.44 mg/dL High 0.57-1.11 [facility] Comment on above: Performed By: #### L AB17 ####Pharmacy Informatics Manager: NATALIE GARCIA ([phone])[facility] ([facility])[address] GLOMERULAR FILTRATION RATE ML/MIN/1.73 SQ M.PREDICTED 13.2 mL/min/1.73m*2 Low >60.0 [facility] Comment on above: Result Comment: Calc ulation based on the Chronic Kidney Disease Epidemiology Collaboration (CKD-EPI) equation refit without adjustment for race Performed By: #### L AB17 ####Pharmacy Informatics Manager: NATALIE AGRCIA ([phone])[facility] ([facility])[address] Glucose [Mass/Vol] 121 mg/dL High 82-115 [facility] Comment on above: Performed By: #### L AB17 ####Pharmacy Informatics Manager: NATALIE GARCIA ([phone])[facility] ([facility])[address] Potassium [Moles/Vol] 3.9 mmol/L Normal 3.5-5.1 [facility] Comment on above: Result Comment: [facility] potassium values may be up to 0.5 mmol/L lower than serum values. Performed By: #### L AB17 ####Pharmacy Informatics Manager: NATALIE GARCIA ([id number])[facility] ([facility])[address] Protein [Mass/Vol] 6.4 g/dL Normal 6.4-8.3 [facility] Comment on above: Performed By: #### L AB17 ####Pharmacy Informatics Manager: NATALIEMELODIE GARCIA ([phone])[facility]ITAL[facility] ([facility])[address] Sodium [Moles/Vol] 134 mmol/L Low 136-145 [facility] Comment on above: Performed By: #### L AB17 ####Pharmacy Informatics Manager: NATALIE JOSE ([phone])[facility]ITALJos[facility] Miguel [facility]MANSANT[facility]OSPITALN ([facility])[address] Urea nitrogen [Mass/Vol] 38 mg/dL High 9-23 [facility] Comment on above: Performed By: #### L AB17 ####Pharmacy Informatics Manager: NATALIE GARCIA ([phone])[facility] ([facility])[address] Comprehensive metabolic 1998 panelon 06-10-2025 Albumin [Mass/Vol] 2.3 g/dL Low 3.4 - 4.8 g/dL [facility] ALP [Catalytic activity/Vol] 112 U/L 40 - 150 U/L [facility] ALT [Catalytic activity/Vol] 10 U/L NINF - 30 U/L [facility] Anion gap [Moles/Vol] 10 mmol/L 3 - 13 mmol/L [facility] AST [Catalytic activity/Vol] 25 U[facility]/L [facility] Bilirubin [Mass/Vol] 0.5 mg/dL NINF - 1.2 mg/dL [facility] Calcium [Mass/Vol] 9 mg/dL 8.8 - 10. 0 mg/dL [facility] Chloride [Moles/Vol] 99 mmol/L 98 - 10 7 mmol/L [facility] CO2 [Moles/Vol] 25 mmol/L 23 - 31 mmol/L [facility] Creatinine [Mass/Vol] 3.44 mg/dL High 0.57 - 1.11 mg/dL [facility] GFR/1.73 sq M.predicted (S/P/Bld) [Vol rate/Area] 13.2 mL/min Low - PINF [facility] Glucose [Mass/Vol] 121 mg/dL High 82 - 115 mg/dL [facility] Interpretation and review of laboratory results Abnormal [facility] Potassium [Moles/Vol] 3.9 mmol/L 3.5 - 5.1 mmol/L [facility] Protein [Mass/Vol] 6.4 g/dL 6.4 - 8.3 g/dL [facility] Sodium [Moles/Vol] 134 mmol/L Low 136 - 145 mmol/L [facility] Urea nitrogen [Mass/Vol] 38 mg/dL High 9 - 23 mg/dL [facility] HEMOGLOBIN AND HEMATOCRIT, B LOODon 06-10-2025 Hematocrit (Bld) [Volume fraction] 25.8 % Low 35.0-47.0 [facility] Comment on above: Order Comment: Recom mend 1 hour post transfusion Performed By: #### L [id number] ####Pharmacy Informatics Manager: NATALIE GARCIA ([phone])[facility]ITAL[facility] Miguel [facility] ([facility])[address] [place] [address] Hemoglobin (Bld) [Mass/Vol] 8.1 g/dL Low 11.7-16.0 [facility] Comment on above: Order Comment: Recom mend 1 hour post transfusion Performed By: #### L AB753 ####Pharmacy Informatics Manager: NATALIE GARCIA ([phone])[facility]ITAL[facility] [place] [address] Hemoglobin (Bld) [Mass/Vol]O rdered By: Marguerite Maxwell on 06-10-2025 Hematocrit (Bld) [Volume fraction] 25.8 % Low 35.0 - 47.0 % [facility] Interpretation and review of laboratory results Abnormal [facility] IRON AND TIBCon 06-10-2025 IRON BINDING CAPACITY 188 ug/dL Low 250-450 [facility] Comment on above: Performed By: #### L [id number] ####Pharmacy Informatics Manager: NATALIE GARCIA ([phone])[facility]ITAL[facility] ([facility])[address] [place] [address] IRON SATURATION 16.5 % Low 20.0-50.0 [facility] Comment on above: Performed By: #### L [id number] ####Pharmacy Informatics Manager: NATALIE GARCIA ([phone])[facility]ITAL[facility] ([facility])[address] IRON, TOTAL 31 ug/dL Low 50-170 [facility] Comment on above: Performed By: #### L [id number] ####Pharmacy Informatics Manager: NATALIE GARCIA ([phone])[facility]ITAL[facility] ([facility])[address] Iron and Iron binding capaci ty panelon 06-10-2025 Interpretation and review of laboratory results Abnormal [facility] Iron [Mass/Vol] 31 ug/dL Low 50 - 170 ug/dL [facility] Iron binding capacity [Mass/Vol] 188 ug/dL Low 250 - 450 ug/dL [facility] Iron saturation [Mass fraction] 16.5 % Low 20.0 - 50.0 % [facility] Laboratory - Chemistry and C hemistry - challengeon 06-10-2025 Glucose [Mass/Vol] 164 mg/dL High 70 - 100 mg/dL [facility] Glucose [Mass/Vol] 157 mg/dL High 70 - 100 mg/dL [facility] Glucose [Mass/Vol] 163 mg/dL High 70 - 100 mg/dL [facility] Glucose [Mass/Vol] 117 mg/dL High 70 - 100 mg/dL [facility] Glucose [Mass/Vol] 103 mg/dL High 70 - 100 mg/dL [facility] Glucose [Mass/Vol] 57 mg/dL Low 70 - 100 mg/dL [facility] Laboratory - Hematology and Cell countsOrdered By: Marguerite Maxwell on 06-10-2025 Hemoglobin (Bld) [Mass/Vol] 8.1 g/dL Low 11.7 - 16.0 g/dL [facility] No Panel Informationon 06-10 Interpretation and review of laboratory results Abnormal [facility] Interpretation and review of laboratory results Abnormal [facility] Interpretation and review of laboratory results Abnormal [facility] Blood Expiration Date [id number] [facility] Crossmatch interpretation COMP [facility] Dispense Status Transfused [facility] Product Blood Type 6200 [facility] PRODUCT CODE [id number] [facility] ABO A [facility] Number [id number] [facility] RH Positive [facility] Unit Volume 300 mL [facility] Interpretation and review of laboratory results Abnormal [facility] Interpretation and review of laboratory results Abnormal [facility] Interpretation and review of laboratory results Abnormal [facility] Progress Noteon 06-10-2025 [facility] Progress [facility] Bacteria identified Cx Nom ( Catheter tip)Ordered By: Alcides Sims on 06-09-2025 Interpretation and review of laboratory results Abnormal [facility] CBC (HEMOGRAM)on 06-09-2025 Erythrocyte distribution width (RBC) [Ratio] 19.1 % High 11.5-15.0 [facility] Comment on above: Performed By: #### L [id number] ####Pharmacy Informatics Manager: NATALIE GARCIA ([phone])[facility] ([facility])[address] [place] [address] Hematocrit (Bld) [Volume fraction] 22.0 % Low 35.0-47.0 [facility] Comment on above: Performed By: #### L [id number] ####Pharmacy Informatics Manager: NATALIE GARCIA ([phone])[facility] ([facility])[address] [place] [address] Hemoglobin (Bld) [Mass/Vol] 6.9 g/dL Critically low 11.7-16.0 [facility] Comment on above: Performed By: #### L AB294 ####Pharmacy Informatics Manager: NATALIE GARCIA ([phone])[facility] ([facility])[address] [place] [address] MCH (RBC) [Entitic mass] 25.9 pg Low 26.0-34.0 [facility] Comment on above: Performed By: #### L AB294 ####Pharmacy Informatics Manager: NATALIE GARCIA ([phone])[facility] ([facility])[address] [place] [address] MCHC 31.4 % Normal 30.5-36.0 [facility] Comment on above: Performed By: #### L AB294 ####Pharmacy Informatics Manager: NATALIE GARCIA ([phone])[facility] ([facility])[address] MCV (RBC) [Entitic vol] 82.7 fL Normal 77.0-99.0 [facility] Comment on above: Performed By: #### L [id number] ####Pharmacy Informatics Manager: NATALIE GARCIA ([phone])[facility] ([facility])[address] Platelet mean volume (Bld) [Entitic vol] 9.8 fL Normal 9.0-12.7 [facility] Comment on above: Performed By: #### L AB294 ####Pharmacy Informatics Manager: NATALIE GARCIA ([id number])[facility]ITALJosé Miguel [facility]MANSANT[facility]ITALN ([facility])[address] Platelets (Bld) [#/Vol] 230 10*3/uL Normal 140-440 [facility] Comment on above: Performed By: #### L AB294 ####Pharmacy Informatics Manager: NATALIE GARCIA ([phone])[facility]ITALJos[facility] ([facility])[address] RBC (Bld) [#/Vol] 2.66 10*6/uL Low 3.80-5.20 [facility] Comment on above: Performed By: #### L AB294 ####Pharmacy Informatics Manager: NATALIE GARCIA ([phone])[facility]ITALJosé Miguel [facility]PITALN ([facility])[address] [place] [address] [place] WBC (Bld) [#/Vol] 6.7 10*3/uL Normal 3.6-10.7 [facility] Comment on above: Performed By: #### L AB294 ####Pharmacy Informatics Manager: NATALIE GARCIA ([phone])[facility]ITAL[facility] ([facility])[address] CBC panel Auto (Bld)on 06-09 Erythrocyte distribution width (RBC) [Ratio] 19.1 % High 11.5 - 15.0 % [facility] Hematocrit (Bld) [Volume fraction] 22 % Low 35.0 - 47.0 % [facility] Hemoglobin (Bld) [Mass/Vol] 6.9 g/dL Critically low 11.7 - 16.0 g/dL [facility] Interpretation and review of laboratory results Abnormal [facility] MCH (RBC) [Entitic mass] 25.9 pg Low 26.0 - 34.0 pg [facility] MCHC (RBC) [Mass/Vol] 31.4 % 30.5 - 36.0 % [facility] MCV (RBC) [Entitic vol] 82.7 fL 77.0 - 99.0 fL [facility] Platelet mean volume (Bld) [Entitic vol] 9.8 fL 9.0 - 12.7 fL [facility] Platelets (Bld) [#/Vol] 230 10*3/uL 140 - 440 10*3/uL [facility] RBC (Bld) [#/Vol] 2.66 10*6/uL Low 3.80 - 5.2 0 10*6/uL [facility] WBC (Bld) [#/Vol] 6.7 10*3/uL 3.6 - 10.7 10*3/uL [facility] COMPREHENSIVE METABOLIC PANE Florentin 06-09-2025 Albumin [Mass/Vol] 2.4 g/dL Low 3.4-4.8 [facility] Comment on above: Performed By: #### L AB17 ####Pharmacy Informatics Manager: NATALIE GARCIA ([phone])[facility] ([facility])[address] [place] [address] ALP [Catalytic activity/Vol] 117 U/L Normal 40-150 [facility] Comment on above: Performed By: #### L AB17 ####Pharmacy Informatics Manager: NATALIE GARCIA ([phone])[facility] ([facility] ALT [Catalytic activity/Vol] 9 U/L Normal <30 [facility] Comment on above: Performed By: #### L AB17 ####Pharmacy Informatics Manager: NATALIE GARCIA ([phone])[facility] [place] ([facility])[address] Anion gap [Moles/Vol] 11 mmol/L Normal 3-13 [facility] Comment on above: Performed By: #### L AB17 ####Pharmacy Informatics Manager: NATALIE GARCIA ([phone])[facility] [place] ([facility])[address] AST [Catalytic activity/Vol] 18 U/L Normal <34 [facility] Comment on above: Performed By: #### L AB17 ####Pharmacy Informatics Manager: NATALIE GARCIA ([phone])[facility] [place] ([facility])[address] Bilirubin [Mass/Vol] 0.5 mg/dL Normal <1.2 [facility] Comment on above: Performed By: #### L AB17 ####Pharmacy Informatics Manager: NATALIE GARCIA ([phone])[facility] [place] ([facility])[address] Calcium [Mass/Vol] 9.1 mg/dL Normal 8.8-10.0 [facility] Comment on above: Performed By: #### L AB17 ####Pharmacy Informatics Manager: NATALIE GARCIA ([phone])[facility] [place] ([facility])[address] [place] [address] [place] Chloride [Moles/Vol] 99 mmol/L Normal 98-107 [facility] Comment on above: Performed By: #### L AB17 ####Pharmacy Informatics Manager: NATALIE GARCIA ([phone])[facility] [place] ([facility])[address] [place] [address] [place] CO2 [Moles/Vol] 26 mmol/L Normal 23-31 [facility] Comment on above: Performed By: #### L AB17 ####Pharmacy Informatics Manager: NATALIE GARCIA ([phone])[facility] [place] ([facility])[address] Creatinine [Mass/Vol] 2.37 mg/dL High 0.57-1.11 [facility] Comment on above: Performed By: #### L AB17 ####Pharmacy Informatics Manager: NATALIE GARCIA ([phone])[facility] ([facility] GLOMERULAR FILTRATION RATE ML/MIN/1.73 SQ M.PREDICTED 20.6 mL/min/1.73m*2 Low >60.0 [facility] Comment on above: Result Comment: Calc ulation based on the Chronic Kidney Disease Epidemiology Collaboration (CKD-EPI) equation refit without adjustment for race Performed By: #### L AB17 ####Pharmacy Informatics Manager: NATALIE GARCIA ([phone])[facility] ([facility])[address] Glucose [Mass/Vol] 101 mg/dL Normal 82-115 [facility] Comment on above: Performed By: #### L AB17 ####Pharmacy Informatics Manager: NATALIE GARCIA ([phone])[facility] ([facility] Potassium [Moles/Vol] 3.8 mmol/L Normal 3.5-5.1 [facility] Comment on above: Result Comment: [facility] potassium values may be up to 0.5 mmol/L lower than serum values. Performed By: #### L AB17 ####Pharmacy Informatics Manager: NATALIE GARCIA ([phone])[facility] ([facility] Protein [Mass/Vol] 6.6 g/dL Normal 6.4-8.3 [facility] Comment on above: Performed By: #### L AB17 ####Pharmacy Informatics Manager: NATALIE GARCAI ([phone])[facility] ([facility])[address] Sodium [Moles/Vol] 136 mmol/L Normal 136-145 [facility] Comment on above: Performed By: #### L AB17 ####Pharmacy Informatics Manager: NATALIE GARCIA ([id number])[facility] ([facility])[address] Urea nitrogen [Mass/Vol] 26 mg/dL High 9-23 [facility] Comment on above: Performed By: #### L AB17 ####Pharmacy Informatics Manager: NATALIE GARCIA ([phone])[facility] ([facility])[address] CULTURE ANAEROBICon 06-09-20 CULTURE ANAEROBIC Normal [facility] [employer] Comment on above: Performed By: #### L [id number] ####Pharmacy Informatics Manager: VASHTI BAILEY ([id number])[facility] ([facility])[address] [place] [address] CULTURE, AEROBIC BACTERIA WI TH GRAM STAINon 06-09-2025 CULTURE, AEROBIC BACTERIA WITH GRAM STAIN Normal [facility] Comment on above: Performed By: #### L AB897 ####Pharmacy Informatics Manager: VASHTI BAILEY ([phone])[facility] ([facility])[address] [place] [address] Comprehensive metabolic 1998 panelon 06-09-2025 Albumin [Mass/Vol] 2.4 g/dL Low 3.4 - 4.8 g/dL [facility] ALP [Catalytic activity/Vol] 117 U/L 40 - 150 U/L [facility] ALT [Catalytic activity/Vol] 9 U/L NINF - 30 U/L [facility] Anion gap [Moles/Vol] 11 mmol/L 3 - 13 mmol/L [facility] AST [Catalytic activity/Vol] 18 U/L NINF - 34 U/L [facility] Bilirubin [Mass/Vol] 0.5 mg/dL NINF - 1.2 mg/dL [facility] Calcium [Mass/Vol] 9.1 mg/dL 8.8 - 10. 0 mg/dL [facility] Chloride [Moles/Vol] 99 mmol/L 98 - 10 7 mmol/L [facility] CO2 [Moles/Vol] 26 mmol/L 23 - 31 mmol/L [facility] Creatinine [Mass/Vol] 2.37 mg/dL High 0.57 - 1.11 mg/dL [facility] GFR/1.73 sq M.predicted (S/P/Bld) [Vol rate/Area] 20.6 mL/min Low - PINF [facility] Glucose [Mass/Vol] 101 mg/dL 82 - 115 mg/dL [facility] Interpretation and review of laboratory results Abnormal [facility] Potassium [Moles/Vol] 3.8 mmol/L 3.5 - 5.1 mmol/L [facility] Protein [Mass/Vol] 6.6 g/dL 6.4 - 8.3 g/dL [facility] Sodium [Moles/Vol] 136 mmol/L 136 - 145 mmol/L [facility] Urea nitrogen [Mass/Vol] 26 mg/dL High 9 - 23 mg/dL [facility] HEMOGLOBIN AND HEMATOCRIT, B LOODon 06-09-2025 Hematocrit (Bld) [Volume fraction] 22.8 % Low 35.0-47.0 [facility] Comment on above: Performed By: #### L [id number] ####Pharmacy Informatics Manager: NATALIE GARCIA ([phone])[facility] ([facility])[address] [place] [address] Hemoglobin (Bld) [Mass/Vol] 7.3 g/dL Low 11.7-16.0 [facility] Comment on above: Performed By: #### L AB753 ####Pharmacy Informatics Manager: NATALIE GARCIA ([phone])[facility] ([facility])[address] [place] [address] Hemoglobin (Bld) [Mass/Vol]o n 06-09-2025 Hematocrit (Bld) [Volume fraction] 22.8 % Low 35.0 - 47.0 % [facility] Interpretation and review of laboratory results Abnormal [facility] Laboratory - Chemistry and C hemistry - challengeon 06-09-2025 Glucose [Mass/Vol] 97 mg/dL 70 - 100 mg/dL [facility] Glucose [Mass/Vol] 94 mg/dL 70 - 100 mg/dL [facility] Glucose [Mass/Vol] 116 mg/dL High 70 - 100 mg/dL [facility] Glucose [Mass/Vol] 111 mg/dL High 70 - 100 mg/dL [facility] Laboratory - Hematology and Cell countson 06-09-2025 Hemoglobin (Bld) [Mass/Vol] 7.3 g/dL Low 11.7 - 16.0 g/dL [facility] Laboratory - Microbiology an d Antimicrobial susceptibilityOrdered By: Alcides Sims on 06-09-2025 Bacteria identified Cx Nom (Catheter tip) >15 CFU Serratia marcescens Abnormal [facility] No Panel Informationon 06-09 Interpretation and review of laboratory results Normal [facility] Interpretation and review of laboratory results Normal [facility] Interpretation and review of laboratory results Abnormal [facility] Interpretation and review of laboratory results Abnormal [facility] Progress Noteon 06-09-2025 Progress Note [facility] [employer] Progress Note Normal [facility] Progress Note [facility] [employer] Progress [facility] [id number] 06-08-2025 [id number] Normal [facility] CBC (HEMOGRAM)on 06-08-2025 Erythrocyte distribution width (RBC) [Ratio] 19.2 % High 11.5-15.0 [facility] Comment on above: Performed By: #### L [id number] ####Pharmacy Informatics Manager: NATALIE GARCIA ([phone])[facility] ([facility])[address] [place] [address] Hematocrit (Bld) [Volume fraction] 24.6 % Low 35.0-47.0 [facility] Comment on above: Performed By: #### L AB294 ####Pharmacy Informatics Manager: NATALIE GARCIA ([phone])[facility] ([facility])[address] [place] [address] Hemoglobin (Bld) [Mass/Vol] 7.7 g/dL Low 11.7-16.0 [facility] Comment on above: Performed By: #### L [id number] ####Pharmacy Informatics Manager: NATALIE GARCIA ([phone])[facility] ([facility])[address] [place] [address] MCH (RBC) [Entitic mass] 26.0 pg Normal 26.0-34.0 [facility] Comment on above: Performed By: #### L AB294 ####Pharmacy Informatics Manager: NATALIE GARCIA ([phone])[facility] [place] ([facility])[address] MCHC 31.3 % Normal 30.5-36.0 [facility] Comment on above: Performed By: #### L [id number] ####Pharmacy Informatics Manager: NATALIE GARCIA ([phone])[facility] [place] ([facility])[address] MCV (RBC) [Entitic vol] 83.1 fL Normal 77.0-99.0 [facility] Comment on above: Performed By: #### L AB294 ####Pharmacy Informatics Manager: NATALIE GARCIA ([phone])[facility] [place] ([facility])[address] Platelet mean volume (Bld) [Entitic vol] 9.9 fL Normal 9.0-12.7 [facility] Comment on above: Performed By: #### L [id number] ####Pharmacy Informatics Manager: NATALIE GARCIA ([phone])[facility] [place] ([facility])[address] Platelets (Bld) [#/Vol] 236 10*3/uL Normal 140-440 [facility] Comment on above: Performed By: #### L [id number] ####Pharmacy Informatics Manager: NATALIE GARCIA ([phone])[facility] [place] ([facility])[address] [place] [address] [place] RBC (Bld) [#/Vol] 2.96 10*6/uL Low 3.80-5.20 [facility] Comment on above: Performed By: #### L AB294 ####Pharmacy Informatics Manager: NATALIE GARCIA ([phone])[facility] [place] ([facility])[address] [place] [address] [place] WBC (Bld) [#/Vol] 6.5 10*3/uL Normal 3.6-10.7 [facility] Comment on above: Performed By: #### L [id number] ####Pharmacy Informatics Manager: NATALIE GARCIA ([id number])[facility] ([facility])[address] CBC panel Auto (Bld)on 06-08 Erythrocyte distribution width (RBC) [Ratio] 19.2 % High 11.5 - 15.0 % [facility] Hematocrit (Bld) [Volume fraction] 24.6 % Low 35.0 - 47.0 % [facility] Hemoglobin (Bld) [Mass/Vol] 7.7 g/dL Low 11.7 - 16.0 g/dL [facility] Interpretation and review of laboratory results Abnormal [facility] MCH (RBC) [Entitic mass] 26 pg 26.0 - 34.0 pg [facility] MCHC (RBC) [Mass/Vol] 31.3 % 30.5 - 36.0 % [facility] MCV (RBC) [Entitic vol] 83.1 fL 77.0 - 99.0 fL [facility] Platelet mean volume (Bld) [Entitic vol] 9.9 fL 9.0 - 12.7 fL [facility] Platelets (Bld) [#/Vol] 236 10*3/uL 140 - 440 10*3/uL [facility] RBC (Bld) [#/Vol] 2.96 10*6/uL Low 3.80 - 5.2 0 10*6/uL [facility] WBC (Bld) [#/Vol] 6.5 10*3/uL 3.6 - 10.7 10*3/uL [facility] COMPREHENSIVE METABOLIC PANE Florentin 06-08-2025 Albumin [Mass/Vol] 2.5 g/dL Low 3.4-4.8 [facility] Comment on above: Performed By: #### L AB96, LAB17 ####Pharmacy Informatics Manager: NATALIE GARCIA ([id number])[facility] ([facility])[address] ALP [Catalytic activity/Vol] 118 U/L Normal 40-150 [facility] Comment on above: Performed By: #### L AB96, LAB17 ####Pharmacy Informatics Manager: NATALIE GARCIA ([phone])[facility] [place] ([facility])[address] ALT [Catalytic activity/Vol] 9 U/L Normal <30 [facility] Comment on above: Performed By: #### L AB96, LAB17 ####Pharmacy Informatics Manager: NATALIE GARCIA ([phone])[facility] [place] ([facility])[address] Anion gap [Moles/Vol] 10 mmol/L Normal 3-13 [facility] Comment on above: Performed By: #### L AB96, LAB17 ####Pharmacy Informatics Manager: NATALIE GARCIA ([id number])[facility] [place] ([facility])[address] AST [Catalytic activity/Vol] 16 U/L Normal <34 [facility] Comment on above: Performed By: #### L AB96, LAB17 ####Pharmacy Informatics Manager: NATALIE GARCIA ([phone])[facility] [place] ([facility])[address] Bilirubin [Mass/Vol] 0.5 mg/dL Normal <1.2 [facility] Comment on above: Performed By: #### L AB96, LAB17 ####Pharmacy Informatics Manager: NATALIE GARCIA ([phone])[facility] [place] ([facility])[address] Calcium [Mass/Vol] 9.1 mg/dL Normal 8.8-10.0 [facility] Comment on above: Performed By: #### L AB96, LAB17 ####Pharmacy Informatics Manager: NATALIE GARCIA ([phone])[facility] [place] ([facility])[address] Chloride [Moles/Vol] 95 mmol/L Low 98-107 [facility] Comment on above: Performed By: #### L AB96, LAB17 ####Pharmacy Informatics Manager: NATALIE GARCIA ([phone])[facility] [place] ([facility])[address] CO2 [Moles/Vol] 24 mmol/L Normal 23-31 [facility] Comment on above: Performed By: #### L AB96, LAB17 ####Pharmacy Informatics Manager: NATALIE DENISETRICIA ([phone])[facility] ([facility])[address] Creatinine [Mass/Vol] 4.25 mg/dL High 0.57-1.11 [facility] Comment on above: Performed By: #### L AB96, LAB17 ####Pharmacy Informatics Manager: NATALIE DENISETRICIA ([phone])[facility] ([facility])[address] GLOMERULAR FILTRATION RATE ML/MIN/1.73 SQ M.PREDICTED 10.2 mL/min/1.73m*2 Low >60.0 [facility] Comment on above: Result Comment: Calc ulation based on the Chronic Kidney Disease Epidemiology Collaboration (CKD-EPI) equation refit without adjustment for race Performed By: #### L AB96, LAB17 ####Pharmacy Informatics Manager: NATALIE GARCIA ([phone])[facility] ([facility])[address] Glucose [Mass/Vol] 150 mg/dL High 82-115 [facility] Comment on above: Performed By: #### L AB96, LAB17 ####Pharmacy Informatics Manager: NATALIE DENISETRICIA ([phone])[facility] ([facility])[address] [place] [address] [place] Potassium [Moles/Vol] 3.8 mmol/L Normal 3.5-5.1 [facility] Comment on above: Result Comment: [facility] potassium values may be up to 0.5 mmol/L lower than serum values. Performed By: #### L AB96, LAB17 ####Pharmacy Informatics Manager: NATALIE GARCIA ([phone])[facility] ([facility])[address] Protein [Mass/Vol] 6.5 g/dL Normal 6.4-8.3 [facility] Comment on above: Performed By: #### L AB96, LAB17 ####Pharmacy Informatics Manager: NATALIE SIMONErlindaTRICIA ([phone])[facility] [place] ([facility])[address] Sodium [Moles/Vol] 129 mmol/L Low 136-145 [facility] Comment on above: Performed By: #### L AB96, LAB17 ####Pharmacy Informatics Manager: NATALIE SIMONDANIEL ([phone])[facility] [place] ([facility])[address] Urea nitrogen [Mass/Vol] 51 mg/dL High 9-23 [facility] Comment on above: Performed By: #### L AB96, LAB17 ####Pharmacy Informatics Manager: NATALIE DENISETRICIA ([id number])[facility] ([facility])[address] Comprehensive metabolic 1998 panelon 06-08-2025 Albumin [Mass/Vol] 2.5 g/dL Low 3.4 - 4.8 g/dL [facility] ALP [Catalytic activity/Vol] 118 U/L 40 - 150 U/L [facility] ALT [Catalytic activity/Vol] 9 U/L NINF - 30 U/L [facility] Anion gap [Moles/Vol] 10 mmol/L 3 - 13 mmol/L [facility] AST [Catalytic activity/Vol] 16 U/L NINF - 34 U/L [facility] Bilirubin [Mass/Vol] 0.5 mg/dL NINF - 1.2 mg/dL [facility] Calcium [Mass/Vol] 9.1 mg/dL 8.8 - 10. 0 mg/dL [facility] Chloride [Moles/Vol] 95 mmol/L Low 98 - 10 7 mmol/L [facility] CO2 [Moles/Vol] 24 mmol/L 23 - 31 mmol/L [facility] Creatinine [Mass/Vol] 4.25 mg/dL High 0.57 - 1.11 mg/dL [facility] GFR/1.73 sq M.predicted (S/P/Bld) [Vol rate/Area] 10.2 mL/min Low - PINF [facility] Glucose [Mass/Vol] 150 mg/dL High 82 - 115 mg/dL [facility] Interpretation and review of laboratory results Abnormal [facility] Potassium [Moles/Vol] 3.8 mmol/L 3.5 - 5.1 mmol/L [facility] Protein [Mass/Vol] 6.5 g/dL 6.4 - 8.3 g/dL [facility] Sodium [Moles/Vol] 129 mmol/L Low 136 - 145 mmol/L [facility] Urea nitrogen [Mass/Vol] 51 mg/dL High 9 - 23 mg/dL [facility] LACTATE DEHYDROGENASEon 05-28 LDH [Catalytic activity/Vol] 213 U/L Normal 125-220 [facility] Comment on above: Performed By: #### L AB96, LAB17 ####Pharmacy Informatics Manager: NATALIE GARCIA ([phone])[facility] ([facility])[address] [place] [address] LDH Lactate to pyruvate reac tion [Catalytic activity/Vol]on 06-08-2025 Interpretation and review of laboratory results Normal [facility] Laboratory - Chemistry and C hemistry - challengeon 06-08-2025 Glucose [Mass/Vol] 98 mg/dL 70 - 100 mg/dL [facility] Glucose [Mass/Vol] 131 mg/dL High 70 - 100 mg/dL [facility] Glucose [Mass/Vol] 161 mg/dL High 70 - 100 mg/dL [facility] Glucose [Mass/Vol] 166 mg/dL High 70 - 100 mg/dL [facility] LDH Lactate to pyruvate reaction [Catalytic activity/Vol] 213 U/L 125 - 220 U/L [facility] Glucose [Mass/Vol] 156 mg/dL High 70 - 100 mg/dL [facility] No Panel Informationon 06-08 Interpretation and review of laboratory results Normal [facility] Interpretation and review of laboratory results Abnormal [facility] Interpretation and review of laboratory results Abnormal [facility] Interpretation and review of laboratory results Abnormal [facility] Interpretation and review of laboratory results Abnormal [facility] Progress Noteon 06-08-2025 Progress Note Normal [facility] Progress Note Normal [facility] Progress Note Normal [facility] XR CHEST 1 VIEWon 06-08-2025 XR CHEST 1 VIEW Normal [facility] XR Chest Single viewon 06-08 [facility] Radiology Study observation (narrative) Eloina hernández XR Chest Single viewOrdered By: Timbo Mojica on 06-08-2025 [facility] Work Phone: [phone] 06-07-2025 [id number] Normal [facility] BLOOD CULTUREon 06-07-2025 Bacteria identified Cx Nom (Bld) Normal [facility] Comment on above: Performed By: #### L [id number] ####Pharmacy Informatics Manager: VASHTI BAILEY ([phone])[facility] ([facility])[address] [place] [address] Bacteria identified Cx Nom (Bld) Normal [facility] Comment on above: Performed By: #### L AB462 ####Pharmacy Informatics Manager: VASHTI BAILEY ([id number])[facility] ([facility])[address] [place] [address] CBC (HEMOGRAM)on 06-07-2025 Erythrocyte distribution width (RBC) [Ratio] 19.2 % High 11.5-15.0 [facility] Comment on above: Performed By: #### L [id number] ####Pharmacy Informatics Manager: NATALIE GARCIA ([phone])[facility] ([facility])[address] [place] [address] Hematocrit (Bld) [Volume fraction] 24.4 % Low 35.0-47.0 [facility] Comment on above: Performed By: #### L AB294 ####Pharmacy Informatics Manager: NATALIE GARCIA ([phone])[facility] [place] [address] [place] Hemoglobin (Bld) [Mass/Vol] 7.5 g/dL Low 11.7-16.0 [facility] Comment on above: Performed By: #### L AB294 ####Pharmacy Informatics Manager: NATALIE GARCIA ([phone])[facility] ([facility])[address] MCH (RBC) [Entitic mass] 26.0 pg Normal 26.0-34.0 [facility] Comment on above: Performed By: #### L AB294 ####Pharmacy Informatics Manager: NATALIE GARCIA ([phone])[facility] ([facility])[address] MCHC 30.7 % Normal 30.5-36.0 [facility] Comment on above: Performed By: #### L AB294 ####Pharmacy Informatics Manager: NATALIE GARCIA ([phone])[facility] ([facility])[address] [place] [address] MCV (RBC) [Entitic vol] 84.4 fL Normal 77.0-99.0 [facility] Comment on above: Performed By: #### L AB294 ####Pharmacy Informatics Manager: NATALIE GARCIA ([phone])[facility] ([facility])[address] Platelet mean volume (Bld) [Entitic vol] 9.5 fL Normal 9.0-12.7 [facility] Comment on above: Performed By: #### L AB294 ####Pharmacy Informatics Manager: NATALIE GARCIA ([phone])[facility] ([facility])[address] Platelets (Bld) [#/Vol] 234 10*3/uL Normal 140-440 [facility] Comment on above: Performed By: #### L AB294 ####Pharmacy Informatics Manager: NATALIE GARCIA ([phone])[facility]MAN[facility] ([facility])[address] RBC (Bld) [#/Vol] 2.89 10*6/uL Low 3.80-5.20 [facility] Comment on above: Performed By: #### L AB294 ####Pharmacy Informatics Manager: NATALIE GARCIA ([phone])[facility] ([facility])[address] [place] [address] WBC (Bld) [#/Vol] 7.4 10*3/uL Normal 3.6-10.7 [facility] Comment on above: Performed By: #### L [id number] ####Pharmacy Informatics Manager: NATALIE GARCIA ([phone])[facility] ([facility])[address] [place] [address] CBC panel Auto (Bld)on 06-07 Erythrocyte distribution width (RBC) [Ratio] 19.2 % High 11.5 - 15.0 % [facility] Hematocrit (Bld) [Volume fraction] 24.4 % Low 35.0 - 47.0 % [facility] Hemoglobin (Bld) [Mass/Vol] 7.5 g/dL Low 11.7 - 16.0 g/dL [facility] Interpretation and review of laboratory results Abnormal [facility] MCH (RBC) [Entitic mass] 26 pg 26.0 - 34.0 pg [facility] MCHC (RBC) [Mass/Vol] 30.7 % 30.5 - 36.0 % [facility] MCV (RBC) [Entitic vol] 84.4 fL 77.0 - 99.0 fL [facility] Platelet mean volume (Bld) [Entitic vol] 9.5 fL 9.0 - 12.7 fL [facility] Platelets (Bld) [#/Vol] 234 10*3/uL 140 - 440 10*3/uL [facility] RBC (Bld) [#/Vol] 2.89 10*6/uL Low 3.80 - 5.2 0 10*6/uL [facility] WBC (Bld) [#/Vol] 7.4 10*3/uL 3.6 - 10.7 10*3/uL [facility] COMPREHENSIVE METABOLIC PANE Florentin 06-07-2025 Albumin [Mass/Vol] 2.7 g/dL Low 3.4-4.8 [facility] Comment on above: Performed By: #### L AB17 ####Pharmacy Informatics Manager: NATALIE CALVERTCER ([phone])[facility] [place] ([facility])[address] ALP [Catalytic activity/Vol] 123 U/L Normal 40-150 [facility] Comment on above: Performed By: #### L AB17 ####Pharmacy Informatics Manager: NATALIE SIMONDANIEL ([phone])[facility] [place] ([facility])[address] ALT [Catalytic activity/Vol] 9 U/L Normal <30 [facility] Comment on above: Performed By: #### L AB17 ####Pharmacy Informatics Manager: NATALIE DENISETRICIA ([phone])[facility] [place] ([facility])[address] Anion gap [Moles/Vol] 11 mmol/L Normal 3-13 [facility] Comment on above: Performed By: #### L AB17 ####Pharmacy Informatics Manager: NATALIE DENISETRICIA ([phone])[facility] [place] ([facility])[address] AST [Catalytic activity/Vol] 19 U/L Normal <34 [facility] Comment on above: Performed By: #### L AB17 ####Pharmacy Informatics Manager: NATALIE DENISETRICIA ([id number])[facility] [place] ([facility])[address] Bilirubin [Mass/Vol] 0.6 mg/dL Normal <1.2 [facility] Comment on above: Performed By: #### L AB17 ####Pharmacy Informatics Manager: NATALIE DENISETRICIA ([phone])[facility] [place] ([facility])[address] Calcium [Mass/Vol] 9.4 mg/dL Normal 8.8-10.0 [facility] Comment on above: Performed By: #### L AB17 ####Pharmacy Informatics Manager: NATALIE GARCIA ([phone])[facility] [place] ([facility])[address] Chloride [Moles/Vol] 96 mmol/L Low 98-107 [facility] Comment on above: Performed By: #### L AB17 ####Pharmacy Informatics Manager: NATALIE DENISETRICIA ([phone])[facility]ITAL[facility]BSANT[facility]ITALN ([facility])[address] CO2 [Moles/Vol] 26 mmol/L Normal 23-31 [facility] Comment on above: Performed By: #### L AB17 ####Pharmacy Informatics Manager: NATALIE DENISETRICIA ([phone])[facility] ([facility])[address] Creatinine [Mass/Vol] 3.68 mg/dL High 0.57-1.11 [facility] Comment on above: Performed By: #### L AB17 ####Pharmacy Informatics Manager: NATALIE DENISETRICIA ([phone])[facility]BS[facility]ITAL[facility] ([facility])[address] GLOMERULAR FILTRATION RATE ML/MIN/1.73 SQ M.PREDICTED 12.2 mL/min/1.73m*2 Low >60.0 [facility] Comment on above: Result Comment: Calc ulation based on the Chronic Kidney Disease Epidemiology Collaboration (CKD-EPI) equation refit without adjustment for race Performed By: #### L AB17 ####Pharmacy Informatics Manager: NATALIE GARCIA ([id number])[facility]BS[facility] ([facility])[address] Glucose [Mass/Vol] 119 mg/dL High 82-115 [facility] Comment on above: Performed By: #### L AB17 ####Pharmacy Informatics Manager: NATALIE GARCIA ([phone])[facility] (HLAB)[address] Potassium [Moles/Vol] 3.7 mmol/L Normal 3.5-5.1 [facility] Comment on above: Result Comment: [facility] potassium values may be up to 0.5 mmol/L lower than serum values. Performed By: #### L AB17 ####Pharmacy Informatics Manager: NATALIEMELODIE SIMONErlindaTRICIA ([phone])[facility] ([facility])[address] Protein [Mass/Vol] 6.8 g/dL Normal 6.4-8.3 [facility] Comment on above: Performed By: #### L AB17 ####Pharmacy Informatics Manager: NATALIE GARCIA ([phone])[facility] [place] ([facility])[address] Sodium [Moles/Vol] 133 mmol/L Low 136-145 [facility] Comment on above: Performed By: #### L AB17 ####Pharmacy Informatics Manager: NATALIE GARCIA ([id number])[facility] ([facility])[address] Urea nitrogen [Mass/Vol] 40 mg/dL High 9-23 [facility] Comment on above: Performed By: #### L AB17 ####Pharmacy Informatics Manager: NATALIE GARCIA ([phone])[facility] ([facility])[address] CULTURE ANAEROBICon 06-07-20 25 CULTURE ANAEROBIC Normal [facility] Comment on above: Performed By: #### L AB233 ####Pharmacy Informatics Manager: VASHTI BAILEY ([phone])[facility] ([facility])[address] [place] [address] CULTURE, AEROBIC BACTERIA WI TH GRAM STAINon 06-07-2025 CULTURE, AEROBIC BACTERIA WITH GRAM STAIN Normal [facility] Comment on above: Performed By: #### L AB897 ####Pharmacy Informatics Manager: VASHTI BAILEY ([id number])[facility] ([facility])[address] [place] [address] Comprehensive metabolic 1998 panelon 06-07-2025 Albumin [Mass/Vol] 2.7 g/dL Low 3.4 - 4.8 g/dL [facility] ALP [Catalytic activity/Vol] 123 U/L 40 - 150 U/L [facility] ALT [Catalytic activity/Vol] 9 U/L NINF - 30 U/L [facility] Anion gap [Moles/Vol] 11 mmol/L 3 - 13 mmol/L [facility] AST [Catalytic activity/Vol] 19 U/L NINF - 34 U/L [facility] Bilirubin [Mass/Vol] 0.6 mg/dL NINF - 1.2 mg/dL [facility] Calcium [Mass/Vol] 9.4 mg/dL 8.8 - 10. 0 mg/dL [facility] [facility] Chlor[facility] [Moles/Vol] 96 mmol/L Low 98 - 10 7 mmol/L [facility] CO2 [Moles/Vol] 26 mmol/L 23 - 31 mmol/L [facility] Creatinine [Mass/Vol] 3.68 mg/dL High 0.57 - 1.11 mg/dL [facility] GFR/1.73 sq M.predicted (S/P/Bld) [Vol rate/Area] 12.2 mL/min Low - PINF [facility] Glucose [Mass/Vol] 119 mg/dL High 82 - 115 mg/dL [facility] Interpretation and review of laboratory results Abnormal [facility] Potassium [Moles/Vol] 3.7 mmol/L 3.5 - 5.1 mmol/L [facility] Protein [Mass/Vol] 6.8 g/dL 6.4 - 8.3 g/dL [facility] Sodium [Moles/Vol] 133 mmol/L Low 136 - 145 mmol/L [facility] Urea nitrogen [Mass/Vol] 40 mg/dL High 9 - 23 mg/dL [facility] Consulton 06-07-2025 Consult Normal [facility] LACTATE DEHYDROGENASE, BODY FLUIDon 06-07-2025 LACTATE DEHYDROGENASE, BODY FLUID BY LAC->PYR 91 U/L Normal [facility] Comment on above: Performed By: #### L [id number], [id number] ####Pharmacy Informatics Manager: VASHTI BAILEY ([id number])[facility] ([address] LaboratoryOrdered By: Benigno Christian on 06-07-2025 Fluid Nom (Body fld) Pleural Fluid S [facility] Laboratoryon 06-07-2025 Fluid Nom (Body fld) Pleural Fluid S [facility] Laboratory - Chemistry and C hemistry - challengeon 06-07-2025 Glucose [Mass/Vol] 140 mg/dL High 70 - 100 mg/dL [facility] Protein (Body fld) [Mass/Vol] 3.9 g/dL [facility] Glucose [Mass/Vol] 134 mg/dL High 70 - 100 mg/dL [facility] Glucose [Mass/Vol] 137 mg/dL High 70 - 100 mg/dL [facility] Laboratory - Chemistry and C hemistry - challengeOrdered By: Benigno Christian on 06-07-2025 LDH (Body fld) [Catalytic activity/Vol] 91 U/L [facility] No Panel Informationon 06-07 Interpretation and review of laboratory results Abnormal [facility] RADIOLOGY SYSTEM [facility] Interpretation and review of laboratory results Abnormal [facility] Radiology Study observation (narrative) [facility] Interpretation and review of laboratory results Abnormal [facility] No Panel InformationOrdered By: Benigno Christian on 06-07-2025 [facility] No Panel InformationOrdered By: Yoana Hayes on 06-07-2025 [facility] Work Phone: Nursing Noteon 06-07-2025 Nursing Note Normal [facility] Nursing Note Normal [facility] PROTEIN BODY FLUIDon 025 PROTEIN, BODY FLUID 3.9 g/dL Normal [facility] Comment on above: Performed By: #### L [id number], [id number] ####Pharmacy Informatics Manager: VASHTI BAILEY ([id number])[address] TYPE OF BODY FLUID Pleural Fluid Normal [facility] Comment on above: Result Comment: DORIAN Knight COMMENTS:This test was developed and its performance characteristics determined by [employer]. It has not been cleared or approved by the US Food and Drug Administration. This test was performed in a CLIA certified laboratory and is intended for clinical purposes.Pleural uljcz-zk-avhmu protein ratio of >0.5 is one of Light???s criteria for an exudate. Heart failure associated misclassifications (by Light???s criteria) may be differentiated as transudative effusions by subsequently evaluating a xjmyw-zq-dyobdiz albumin gradient (>1.2 g/dL) and/or a rsivy-ns-rqhwu protein gradient (>3.1 g/dL). Performed By: #### L [id number], [id number] ####Pharmacy Informatics Manager: VASHTI BAILEY ([id number])[facility] ([facility])[address] [place] [address] Result Comment: DORIAN Knight COMMENTS:This test was developed and its performance characteristics determined by [facility]. It has not been cleared or approved by the US Food and Drug Administration. This test was performed in a CLIA certified laboratory and is intended for clinical purposes.Exudates are defined as meeting one of the following criteria: (a) Pleural nkyqv-ym-cedtm protein ratio of >0.5, (b) pleural odwft-yk-yaopf LDH ratio of >0.6, or (c)a pleural fluid LDH activity that is >2/3 the upper limit of a normal serum LDH activity (Light???s criteria). Progress Noteon 06-07-2025 Progress Note [facility] Progress Note Normal [facility] Progress Note Normal [facility] Progress Note Normal [facility] Progress Note Normal [facility] Progress [facility] Respiratory pathogens DNA an d RNA panel PATEL+non-probe (Lower resp)Ordered By: Nithya Carrasquillo on 06-07-2025 Acinetobacter baumannii complex Not detected Not Detected [facility] Adenovirus Not detected Not Detected [facility] th C. pneumoniae DNA PATEL+non-probe Ql (Lower resp) Not detected Not Detected [facility] Enterobacter cloacae complex Not detected Not Detected [facility] Escherichia coli Not detected Not Detected [facility] FLUAV RNA PATEL+non-probe Ql (Lower resp) Not detected Not Detected [facility] FLUBV RNA PATEL+non-probe Ql (Lower resp) Not detected Not Detected [facility] Haemophilus influenzae Not detected Not Detecte d [facility] Human Metapneumovirus Not detected Not Detected [facility] Human Rhinovirus/Enterovirus Not detected Not Detected [facility] Interpretation and review of laboratory results Abnormal [facility] Klebsiella (Enterobacter) aerogenes Not detected Not Detected [facility] Klebsiella oxytoca Not detected Not Detected [facility] Klebsiella pneumoniae Not detected Not Detected [facility] L. pneumophila DNA PATEL+non-probe Ql (Lower resp) Not detected Not Detected [facility] Moraxella catarrhalis Not detected Not Detected [facility] Mycoplasma pneumoniae Not detected Not Detected [facility] Parainfluenza virus Not detected Not Detected S [facility] Proteus spp Detected Abnormal Not Detected [facility] Pseudomonas aeruginosa Detected Abnormal Not Detected [facility] RSV RNA PATEL+probe Ql (Resp) Not detected Not Detected [facility] S. agalactiae DNA PATEL+non-probe Ql (Sput) Not detected Not Detected [facility]th SARS-CoV-2 (COVID-19) RNA PATEL+non-probe Ql (Nph) Not detected Not Detected [facility] Serratia marcescens Detected Abnormal Not Detected [facility] Staphylococcus aureus Not detected Not Detected [facility] Streptococcus pneumoniae Not detected Not Detected [facility] Streptococcus pyogenes Not detected Not Detecte d [facility] US GUIDED THORACENTESISon US GUIDED THORACENTESIS Normal S [facility] [id number] 06-06-2025 [id number] Normal [facility] BLOOD TYPE AND SCREEN GELon 06-06-2025 ABO GROUPING A Normal [facility] Comment on above: Performed By: #### L [id number] ####Pharmacy Informatics Manager: NATALIE GARCIA ([id number])[facility] ([facility])[address] [place] [address] RH TYPE IN BLOOD Positive Normal [facility] Comment on above: Performed By: #### L [id number] ####Pharmacy Informatics Manager: NATALIE GARCIA ([id number])[facility] ([facility])[address] [place] [address] CBC (HEMOGRAM)on 06-06-2025 Erythrocyte distribution width (RBC) [Ratio] 19.4 % High 11.5-15.0 [facility] Comment on above: Performed By: #### L [id number] ####Pharmacy Informatics Manager: NATALIE GARCIA ([id number])[facility] ([facility])[address] [place] [address] Hematocrit (Bld) [Volume fraction] 24.5 % Low 35.0-47.0 [facility] Comment on above: Performed By: #### L [id number] ####Pharmacy Informatics Manager: NATALIE GARCIA ([id number])[facility] ([facility])[address] Hemoglobin (Bld) [Mass/Vol] 7.2 g/dL Low 11.7-16.0 [facility] Comment on above: Performed By: #### L [id number] ####Pharmacy Informatics Manager: NATALIE GARCIA ([phone])[facility] ([facility])[address] MCH (RBC) [Entitic mass] 25.4 pg Low 26.0-34.0 [facility] Comment on above: Performed By: #### L [id number] ####Pharmacy Informatics Manager: NATALIE GARCIA ([phone])[facility]ITAL[facility] ([facility])[address] MCHC 29.4 % Low 30.5-36.0 [facility] Comment on above: Performed By: #### L [id number] ####Pharmacy Informatics Manager: NATALIE GARCIA ([id number])[facility] ([facility])[address] MCV (RBC) [Entitic vol] 86.3 fL Normal 77.0-99.0 S [facility] Comment on above: Performed By: #### L [id number] ####Pharmacy Informatics Manager: NATALIE GARCIA ([id number])[facility] ([facility])[address] Platelet mean volume (Bld) [Entitic vol] 10.1 fL Normal 9.0-12.7 [facility] Comment on above: Performed By: #### L [id number] ####Pharmacy Informatics Manager: NATALIE GARCIA ([id number])[facility]ITAL[facility]MANSANTA [facility] INDI[facility] HOSPITALLaurel (SB[facility])[address] Platelets (Bld) [#/Vol] 197 10*3/uL Normal 140-440 [facility] Comment on above: Performed By: #### L [id number] ####Pharmacy Informatics Manager: NATALIE GARCIA ([id number])[facility]ITALA [facility]ARSANTA [facility]ITALN (SB[facility])[address] RBC (Bld) [#/Vol] 2.84 10*6/uL Low 3.80-5.20 [facility] Comment on above: Performed By: #### L [id number] ####Pharmacy Informatics Manager: NATALIE GARCIA ([id number])[facility]A [facility] ([facility])[address] WBC (Bld) [#/Vol] 5.9 10*3/uL Normal 3.6-10.7 [facility] Comment on above: Performed By: #### L [id number] ####Pharmacy Informatics Manager: NATALIE GARCIA ([id number])[facility] ([facility])[address] COMPREHENSIVE METABOLIC PANE Florentin 06-06-2025 Albumin [Mass/Vol] 2.6 g/dL Low 3.4-4.8 [facility] Comment on above: Performed By: #### L AB17 ####Pharmacy Informatics Manager: NATALIE GARCIA ([id number])[facility]ITAL[facility]MANSANT[facility]ITAL[facility] ([facility])[address] ALP [Catalytic activity/Vol] 113 U/L Normal 40-150 [facility] Comment on above: Performed By: #### L AB17 ####Pharmacy Informatics Manager: NATALIE GARCIA ([id number])[facility] ([facility])[address] ALT [Catalytic activity/Vol] 12 U/L Normal <30 [facility] Comment on above: Performed By: #### L AB17 ####Pharmacy Informatics Manager: NATALIE GARCIA ([phone])[facility] ([facility])[address] Anion gap [Moles/Vol] 10 mmol/L Normal 3-13 [facility] Comment on above: Performed By: #### L AB17 ####Pharmacy Informatics Manager: NATALIE GARCIA ([id number])[facility] [place] ([facility])[address] AST [Catalytic activity/Vol] 21 U/L Normal <34 [facility] Comment on above: Performed By: #### L AB17 ####Pharmacy Informatics Manager: NATALIE GARCIA ([id number])[facility]A [facility]BSANT[facility]ITALN ([facility])[address] Bilirubin [Mass/Vol] 0.5 mg/dL Normal <1.2 [facility] Comment on above: Performed By: #### L AB17 ####Pharmacy Informatics Manager: NATALIE GARCIA ([phone])[facility]A [facility]BSANT[facility]ITALN ([facility])[address] Calcium [Mass/Vol] 9.0 mg/dL Normal 8.8-10.0 [facility] Comment on above: Performed By: #### L AB17 ####Pharmacy Informatics Manager: NATALIE GARCIA ([phone])[facility] [place] ([facility])[address] Chloride [Moles/Vol] 98 mmol/L Normal 98-107 [facility] Comment on above: Performed By: #### L AB17 ####Pharmacy Informatics Manager: NATALIE GARCIA ([phone])[facility] [place] ([facility])[address] CO2 [Moles/Vol] 26 mmol/L Normal 23-31 [facility] Comment on above: Performed By: #### L AB17 ####Pharmacy Informatics Manager: NATALIE GARCIA ([id number])[facility] [place] ([facility])[address] Creatinine [Mass/Vol] 2.79 mg/dL High 0.57-1.11 [facility] Comment on above: Performed By: #### L AB17 ####Pharmacy Informatics Manager: NATALIE GARCIA ([phone])[facility] ([facility])[address] [place] [address] [place] GLOMERULAR FILTRATION RATE ML/MIN/1.73 SQ M.PREDICTED 17.0 mL/min/1.73m*2 Low >60.0 [facility] Comment on above: Result Comment: Calc ulation based on the Chronic Kidney Disease Epidemiology Collaboration (CKD-EPI) equation refit without adjustment for race Performed By: #### L AB17 ####Pharmacy Informatics Manager: NATALIE GARCIA ([phone])[facility] ([facility])[address] [place] [address] [place] Glucose [Mass/Vol] 145 mg/dL High 82-115 [facility] Comment on above: Performed By: #### L AB17 ####Pharmacy Informatics Manager: NATALIE GARCIA ([id number])[facility] (HLAB)[address] Potassium [Moles/Vol] 3.7 mmol/L Normal 3.5-5.1 [facility] Comment on above: Result Comment: [facility] potassium values may be up to 0.5 mmol/L lower than serum values. Performed By: #### L AB17 ####Pharmacy Informatics Manager: NATALIE GARCIA ([id number])[facility] (HLAB)[address] Protein [Mass/Vol] 6.5 g/dL Normal 6.4-8.3 [facility] Comment on above: Performed By: #### L AB17 ####Pharmacy Informatics Manager: NATALIE GARCIA ([phone])[facility] ([facility])[address] [place] [address] [place] Sodium [Moles/Vol] 134 mmol/L Low 136-145 [facility] Comment on above: Performed By: #### L AB17 ####Pharmacy Informatics Manager: NATALIE GARCIA ([id number])[facility] ([facility])[address] [place] [address] [place] Urea nitrogen [Mass/Vol] 30 mg/dL High 9-23 [facility] Comment on above: Performed By: #### L AB17 ####Pharmacy Informatics Manager: NATALIE GARCIA ([id number])[facility] TAM[facility]ELI[facility] ([facility])[address] [place] [address] CULTURE, CATH TIPon 06-06-20 25 CULTURE, CATH TIP [facility] Comment on above: Performed By: #### L [id number] ####Pharmacy Informatics Manager: VASHTI BAILEY ([id number])[facility] ([facility])[address] [place] [address] Laboratory - Chemistry and C hemistry - challengeon 06-06-2025 Glucose [Mass/Vol] 129 mg/dL High 70 - 100 mg/dL [facility] Glucose [Mass/Vol] 138 mg/dL High 70 - 100 mg/dL [facility] No Panel Informationon 06-06 Interpretation and review of laboratory results Abnormal [facility] Interpretation and review of laboratory results Abnormal [facility] Nursing Noteon 06-06-2025 Nursing Note Normal [facility] PNEUMONIA PCR PANELon 2024 PNEUMONIA PCR PANEL Normal [facility] Comment on above: Performed By: #### L [id number], [id number] ####Pharmacy Informatics Manager: VASHTI BAILEY ([id number])[facility] ([facility])[address] [place] [address] Progress Noteon 06-06-2025 Progress Note Normal [facility] Progress Note Normal [facility] Progress Note Normal [facility] Progress Note Normal [facility] Progress Note Normal [facility] RESPIRATORY CULTURE AND STAI Non 06-06-2025 RESPIRATORY CULTURE AND STAIN Normal [facility] Comment on above: Performed By: #### L AB900, [id number] ####Pharmacy Informatics Manager: VASHTI BAILEY ([id number])[facility] ([facility] [place] [address] XR Chest Single viewon 06-06 [facility] [id number] 06-05-2025 [id number] Normal [facility] CBC (HEMOGRAM)on 06-05-2025 Erythrocyte distribution width (RBC) [Ratio] 19.4 % High 11.5-15.0 [facility] Comment on above: Performed By: #### L [id number] ####Pharmacy Informatics Manager: NATALIE GARCIA ([id number])[facility] ([facility])[address] [place] [address] Hematocrit (Bld) [Volume fraction] 24.8 % Low 35.0-47.0 [facility] Comment on above: Performed By: #### L [id number] ####Pharmacy Informatics Manager: NATALIE GARCIA ([phone])[facility] ([facility])[address] [place] [address] Hemoglobin (Bld) [Mass/Vol] 7.6 g/dL Low 11.7-16.0 [facility] Comment on above: Performed By: #### L [id number] ####Pharmacy Informatics Manager: NATALIE GARCIA ([phone])[facility] ([facility])[address] [place] [address] MCH (RBC) [Entitic mass] 25.9 pg Low 26.0-34.0 [facility] Comment on above: Performed By: #### L [id number] ####Pharmacy Informatics Manager: NATALIE GARCIA ([id number])[facility] ([facility])[address] [place] [address] MCHC 30.6 % Normal 30.5-36.0 [facility] Comment on above: Performed By: #### L [id number] ####Pharmacy Informatics Manager: NATALIE GARCIA ([phone])[facility] ([facility])[address] [place] [address] MCV (RBC) [Entitic vol] 84.6 fL Normal 77.0-99.0 [facility] Comment on above: Performed By: #### L [id number] ####Pharmacy Informatics Manager: NATALIE GARCIA ([phone])[facility] (SB[facility])[address] Platelet mean volume (Bld) [Entitic vol] 9.7 fL Normal 9.0-12.7 [facility] Comment on above: Performed By: #### L [id number] ####Pharmacy Informatics Manager: NATALIE GARCIA ([id number])[facility] ([facility])[address] Platelets (Bld) [#/Vol] 234 10*3/uL Normal 140-440 [facility] Comment on above: Performed By: #### L [id number] ####Pharmacy Informatics Manager: NATALIE GARCIA ([id number])[facility] ([facility])[address] RBC (Bld) [#/Vol] 2.93 10*6/uL Low 3.80-5.20 [facility] Comment on above: Performed By: #### L [id number] ####Pharmacy Informatics Manager: NATALIE GARCIA ([phone])[facility] ([facility])[address] WBC (Bld) [#/Vol] 5.7 10*3/uL Normal 3.6-10.7 [facility] Comment on above: Performed By: #### L [id number] ####Pharmacy Informatics Manager: NATALIE GARCIA ([id number])[facility]ITAL[facility]MANSANTA [facility] INDI[facility] HOSPITALLaurel (SBHLAB)[address] COMPREHENSIVE METABOLIC PANE Florentin 06-05-2025 Albumin [Mass/Vol] 2.7 g/dL Low 3.4-4.8 [facility] Comment on above: Performed By: #### L AB17 ####Pharmacy Informatics Manager: NATALIE GARCIA ([id number])[facility]ITAL[facility] REHMANSANTA FE INDIAN HOSPITALN (SB[facility])[address] ALP [Catalytic activity/Vol] 119 U/L Normal 40-150 [facility] Comment on above: Performed By: #### L AB17 ####Pharmacy Informatics Manager: NATALIE GARCIA ([id number])[facility] [place] ([facility])[address] [place] [address] [place] ALT [Catalytic activity/Vol] 13 U/L Normal <30 [facility] Comment on above: Performed By: #### L AB17 ####Pharmacy Informatics Manager: NATALIE GARCIA ([id number])[facility] [place] ([facility])[address] Anion gap [Moles/Vol] 10 mmol/L Normal 3-13 [facility] Comment on above: Performed By: #### L AB17 ####Pharmacy Informatics Manager: NATALIE GARCIA ([id number])[facility] [place] ([facility])[address] AST [Catalytic activity/Vol] 21 U/L Normal <34 [facility] Comment on above: Performed By: #### L AB17 ####Pharmacy Informatics Manager: NATALIE GARCIA ([id number])[facility] [place] ([facility])[address] Bilirubin [Mass/Vol] 0.7 mg/dL Normal <1.2 [facility] Comment on above: Performed By: #### L AB17 ####Pharmacy Informatics Manager: NATALIE GARCIA ([phone])[facility] [place] ([facility])[address] Calcium [Mass/Vol] 8.9 mg/dL Normal 8.8-10.0 [facility] Comment on above: Performed By: #### L AB17 ####Pharmacy Informatics Manager: NATALIE GARCIA ([phone])[facility] [place] ([facility])[address] [place] [address] [place] Chloride [Moles/Vol] 100 mmol/L Normal 98-107 [facility] Comment on above: Performed By: #### L AB17 ####Pharmacy Informatics Manager: NATALIE GARCIA ([phone])[facility] [place] ([facility])[address] [place] [address] [place] CO2 [Moles/Vol] 27 mmol/L Normal 23-31 [facility] Comment on above: Performed By: #### L AB17 ####Pharmacy Informatics Manager: NATALIE GARCIA ([phone])[facility]ITALJos[facility] Miguel [facility] (SBHLAB)[address] Creatinine [Mass/Vol] 1.79 mg/dL High 0.57-1.11 [facility] Comment on above: Performed By: #### L AB17 ####Pharmacy Informatics Manager: NATALIE GARCIA ([id number])[facility] ([facility])[address] GLOMERULAR FILTRATION RATE ML/MIN/1.73 SQ M.PREDICTED 28.9 mL/min/1.73m*2 Low >60.0 [facility] Comment on above: Result Comment: Calc ulation based on the Chronic Kidney Disease Epidemiology Collaboration (CKD-EPI) equation refit without adjustment for race Performed By: #### L AB17 ####Pharmacy Informatics Manager: NATALIE GARCIA ([id number])[facility] ([facility])[address] Glucose [Mass/Vol] 67 mg/dL Low 82-115 [facility] Comment on above: Performed By: #### L AB17 ####Pharmacy Informatics Manager: NATALIE GARCIA ([id number])[facility] ([facility])[address] [place] [address] Potassium [Moles/Vol] 3.9 mmol/L Normal 3.5-5.1 [facility] Comment on above: Result Comment: [facility] potassium values may be up to 0.5 mmol/L lower than serum values. Performed By: #### L AB17 ####Pharmacy Informatics Manager: NATALIE GARCIA ([id number])[facility] ([facility])[address] Protein [Mass/Vol] 6.7 g/dL Normal 6.4-8.3 [facility] Comment on above: Performed By: #### L AB17 ####Pharmacy Informatics Manager: NATALIE GARCIA ([phone])[facility] [place] ([facility])[address] Sodium [Moles/Vol] 137 mmol/L Normal 136-145 [facility] Comment on above: Performed By: #### L AB17 ####Pharmacy Informatics Manager: NATALIE GARCIA ([id number])[facility] [place] ([facility])[address] Urea nitrogen [Mass/Vol] 18 mg/dL Normal 9-23 [facility] Comment on above: Performed By: #### L AB17 ####Pharmacy Informatics Manager: NATALIE SIMONDANIEL ([phone])[facility] [place] ([facility])[address] Progress Noteon 06-05-2025 Progress Note [facility] Progress [facility] Progress Note Normal [facility] Progress Note Normal [facility] [id number] 06-04-2025 [id number] Normal [facility] CBC (HEMOGRAM)on 06-04-2025 Erythrocyte distribution width (RBC) [Ratio] 19.5 % High 11.5-15.0 [facility] Comment on above: Performed By: #### L [id number] ####Pharmacy Informatics Manager: NATALIE GARCIA ([id number])[facility] [place] (SBHLAB)[address] Hematocrit (Bld) [Volume fraction] 23.8 % Low 35.0-47.0 [facility] Comment on above: Performed By: #### L AB294 ####Pharmacy Informatics Manager: NATALIE GARCIA ([phone])[facility] [place] (SBHLAB)[address] Hemoglobin (Bld) [Mass/Vol] 7.4 g/dL Low 11.7-16.0 [facility] Comment on above: Performed By: #### L AB294 ####Pharmacy Informatics Manager: NATALIE GARCIA ([phone])[facility] [place] (SB[facility]AB)[address] MCH (RBC) [Entitic mass] 25.7 pg Low 26.0-34.0 [facility] Comment on above: Performed By: #### L AB294 ####Pharmacy Informatics Manager: NATALIE GARCIA ([phone])ELOINA MONTENEGROLaurel (SBHLAB)[address] MCHC 31.1 % Normal 30.5-36.0 [facility] Comment on above: Performed By: #### L AB294 ####Pharmacy Informatics Manager: NATALIE GARCIA ([phone])[facility] [place] (SBHLAB)[address] MCV (RBC) [Entitic vol] 82.6 fL Normal 77.0-99.0 [facility] Comment on above: Performed By: #### L AB294 ####Pharmacy Informatics Manager: NATALIE GARCIA ([phone])[facility] [place] (SBHLAB)[address] Platelet mean volume (Bld) [Entitic vol] 9.8 fL Normal 9.0-12.7 [facility] Comment on above: Performed By: #### L AB294 ####Pharmacy Informatics Manager: NATALIE GARCIA ([phone])[facility] [place] (SBHLAB)[address] Platelets (Bld) [#/Vol] 247 10*3/uL Normal 140-440 [facility] Comment on above: Performed By: #### L [id number] ####Pharmacy Informatics Manager: NATALIE GARCIA ([phone])[facility] [place] (SBHLAB)155 [place] [address] [place] RBC (Bld) [#/Vol] 2.88 10*6/uL Low 3.80-5.20 [facility] Comment on above: Performed By: #### L AB294 ####Pharmacy Informatics Manager: NATALIE GARCIA ([phone])[facility] [place] (SBHLAB)[address] WBC (Bld) [#/Vol] 6.2 10*3/uL Normal 3.6-10.7 [facility] Comment on above: Performed By: #### L AB294 ####Pharmacy Informatics Manager: NATALIE GARCIA ([phone])[place] (SBHLAB)[address] COMPREHENSIVE METABOLIC PANE Florentin 06-04-2025 Albumin [Mass/Vol] 2.4 g/dL Low 3.4-4.8 [facility] Comment on above: Performed By: #### L AB103, LAB17 ####Pharmacy Informatics Manager: NATALIE GARCIA ([phone])[facility] [place] (SBHLAB)[address] ALP [Catalytic activity/Vol] 130 U/L Normal 40-150 [facility] Comment on above: Performed By: #### L AB103, LAB17 ####Pharmacy Informatics Manager: NATALIE GARCIA ([phone])[facility] [place] (SBHLAB)[address] ALT [Catalytic activity/Vol] 11 U/L Normal <30 [facility] Comment on above: Performed By: #### L AB103, LAB17 ####Pharmacy Informatics Manager: NATALIE GARCIA ([phone])[facility] [place] (SBHLAB)[address] Anion gap [Moles/Vol] 11 mmol/L Normal 3-13 [facility] Comment on above: Performed By: #### L AB103, LAB17 ####Pharmacy Informatics Manager: NATALIE GARCIA ([phone])[facility] [place] (SB[facility]AB)[address] AST [Catalytic activity/Vol] 19 U/L Normal <34 [facility] Comment on above: Performed By: #### L AB103, LAB17 ####Pharmacy Informatics Manager: NATALIE GARCIA ([phone])[facility] [place] (SB[facility])[address] Bilirubin [Mass/Vol] 0.7 mg/dL Normal <1.2 [facility] Comment on above: Performed By: #### L AB103, LAB17 ####Pharmacy Informatics Manager: NATALIE GARCIA ([phone])[facility] [place] (SBHLAB)[address] Calcium [Mass/Vol] 9.0 mg/dL Normal 8.8-10.0 [facility] Comment on above: Performed By: #### L AB103, LAB17 ####Pharmacy Informatics Manager: NATALIE GARCIA ([phone])[facility] [place] (SBHLAB)[address] Chloride [Moles/Vol] 93 mmol/L Low 98-107 [facility] Comment on above: Performed By: #### L AB103, LAB17 ####Pharmacy Informatics Manager: NATALIE GARCIA ([phone])[facility] [place] (SBHLAB)[address] CO2 [Moles/Vol] 26 mmol/L Normal 23-31 [facility] Comment on above: Performed By: #### L AB103, LAB17 ####Pharmacy Informatics Manager: NATALIE GARCIA ([phone])[facility] [place] (SBHLAB)[address] Creatinine [Mass/Vol] 3.51 mg/dL High 0.57-1.11 [facility] Comment on above: Performed By: #### L AB103, LAB17 ####Pharmacy Informatics Manager: NATALIE GARCIA ([phone])[facility] [place] (SBHLAB)155 [place] [address] [place] GLOMERULAR FILTRATION RATE ML/MIN/1.73 SQ M.PREDICTED 12.9 mL/min/1.73m*2 Low >60.0 [facility] Comment on above: Result Comment: Calc ulation based on the Chronic Kidney Disease Epidemiology Collaboration (CKD-EPI) equation refit without adjustment for race Performed By: #### L AB103, LAB17 ####Pharmacy Informatics Manager: NATALIE GARCIA ([phone])SIMINA [place]ARMAGNUSN (SBHLAB)[address] Glucose [Mass/Vol] 147 mg/dL High 82-115 [facility] Comment on above: Performed By: #### L AB103, LAB17 ####Pharmacy Informatics Manager: NATALIE GARCIA ([phone])[facility] [place] (SBHLAB)[address] Potassium [Moles/Vol] 3.4 mmol/L Low 3.5-5.1 [facility] Comment on above: Result Comment: [facility] potassium values may be up to 0.5 mmol/L lower than serum values. Performed By: #### L AB103, LAB17 ####Pharmacy Informatics Manager: NATALIE GARCIA ([phone])[facility] [place] (SBHLAB)[address] Protein [Mass/Vol] 6.5 g/dL Normal 6.4-8.3 [facility] Comment on above: Performed By: #### L AB103, LAB17 ####Pharmacy Informatics Manager: NATALIE GARCIA ([phone])[facility] [place] (SBHLAB)[address] Sodium [Moles/Vol] 130 mmol/L Low 136-145 [facility] Comment on above: Performed By: #### L AB103, LAB17 ####Pharmacy Informatics Manager: NATALIE GARCIA ([phone])[facility] [place] (SBHLAB)155 [place] [address] [place] Urea nitrogen [Mass/Vol] 43 mg/dL High 9-23 [facility] Comment on above: Performed By: #### L AB103, LAB17 ####Pharmacy Informatics Manager: NATALIE GARCIA ([phone])[facility] [place] (SBHLAB)155 [place] [address] [place] Consulton 06-04-2025 Consult Normal [facility] Consult Normal [facility] MAGNESIUMon 06-04-2025 Magnesium [Mass/Vol] 2.1 mg/dL Normal 1.6-2.6 [facility] Comment on above: Result Comment: DORIAN R COMMENTS:Higher values can be expected in females during menses. Performed By: #### L AB103, LAB17 ####Pharmacy Informatics Manager: NATALIE GARCIA ([phone])[facility]EL[facility] ([facility] Nursing Noteon 06-04-2025 Nursing Note Normal [facility] Progress Noteon 06-04-2025 Progress Note Normal [facility] [place] [employer] CBC (HEMOGRAM)on 06-03-2025 Erythrocyte distribution width (RBC) [Ratio] 19.6 % High 11.5-15.0 [facility] Comment on above: Performed By: #### L AB294 ####Pharmacy Informatics Manager: NATALIE GARCIA ([id number])[facility] (SBAB)[address] Hematocrit (Bld) [Volume fraction] 23.3 % Low 35.0-47.0 [facility] Comment on above: Performed By: #### L AB294 ####Pharmacy Informatics Manager: NATALIE GARCIA ([id number])[facility]ITALJosé Miguel [facility] ([facility])[address] [place] [address] Hemoglobin (Bld) [Mass/Vol] 7.2 g/dL Low 11.7-16.0 [facility] Comment on above: Performed By: #### L AB294 ####Pharmacy Informatics Manager: NATALIE GARCIA ([phone])[facility]ITAL[facility] (SBAB)[address] [place] [address] MCH (RBC) [Entitic mass] 25.8 pg Low 26.0-34.0 [facility] Comment on above: Performed By: #### L AB294 ####Pharmacy Informatics Manager: NATALIE GARCIA ([id number])[facility] ([facility])[address] MCHC 30.9 % Normal 30.5-36.0 [facility] Comment on above: Performed By: #### L AB294 ####Pharmacy Informatics Manager: NATALIE GARCIA ([id number])[facility] [place] (SBHLAB)[address] MCV (RBC) [Entitic vol] 83.5 fL Normal 77.0-99.0 [facility] Comment on above: Performed By: #### L AB294 ####Pharmacy Informatics Manager: NATALIE GARCIA ([id number])[facility] [place] (SBHLAB)[address] Platelet mean volume (Bld) [Entitic vol] 9.7 fL Normal 9.0-12.7 [facility] Comment on above: Performed By: #### L AB294 ####Pharmacy Informatics Manager: NATALIE GARCIA ([id number])[facility] [place] (SB[facility])[address] Platelets (Bld) [#/Vol] 229 10*3/uL Normal 140-440 [facility] Comment on above: Performed By: #### L AB294 ####Pharmacy Informatics Manager: NATALIE GARCIA ([id number])[facility] [place] (SBHLAB)[address] RBC (Bld) [#/Vol] 2.79 10*6/uL Low 3.80-5.20 [facility] Comment on above: Performed By: #### L AB294 ####Pharmacy Informatics Manager: NATALIE GARCIA ([phone])[facility] [place] (SBHLAB)155 [place] [address] [place] WBC (Bld) [#/Vol] 6.1 10*3/uL Normal 3.6-10.7 [facility] Comment on above: Performed By: #### L AB294 ####Pharmacy Informatics Manager: NATALIE GARCIA ([phone])[facility] [place] (SB[facility]AB)[address] COMPREHENSIVE METABOLIC PANE Florentin 06-03-2025 Albumin [Mass/Vol] 2.4 g/dL Low 3.4-4.8 [facility] Comment on above: Performed By: #### L AB103, LAB17 ####Pharmacy Informatics Manager: NATALIE GARCIA ([phone])[facility] [place] (SBHLAB)[address] ALP [Catalytic activity/Vol] 130 U/L Normal 40-150 [facility] Comment on above: Performed By: #### L AB103, LAB17 ####Pharmacy Informatics Manager: NATALIE GARCIA ([phone])[facility] (SBHLAB)[address] ALT [Catalytic activity/Vol] 11 U/L Normal <30 [facility] Comment on above: Performed By: #### L AB103, LAB17 ####Pharmacy Informatics Manager: NATALIE GARCIA ([phone])[facility] (SBHLAB)[address] Anion gap [Moles/Vol] 9 mmol/L Normal 3-13 [facility] Comment on above: Performed By: #### L AB103, LAB17 ####Pharmacy Informatics Manager: NATALIE GARCIA ([phone])[facility]ARSANT[facility]N (SBHLAB)[address] AST [Catalytic activity/Vol] 27 U/L Normal <34 [facility] Comment on above: Performed By: #### L AB103, LAB17 ####Pharmacy Informatics Manager: NATALIE GARCIA ([phone])[facility] (SBHLAB)[address] Bilirubin [Mass/Vol] 0.8 mg/dL Normal <1.2 [facility] Comment on above: Performed By: #### L AB103, LAB17 ####Pharmacy Informatics Manager: NATALIE GARCIA ([phone])[facility] (SBHLAB)[address] Calcium [Mass/Vol] 8.7 mg/dL Low 8.8-10.0 [facility] Comment on above: Performed By: #### L 103, LAB17 ####Pharmacy Informatics Manager: NATALIE GARCIA ([id number])[facility] (SBHLAB)[address] Chloride [Moles/Vol] 95 mmol/L Low 98-107 [facility] Comment on above: Performed By: #### L AB103, LAB17 ####Pharmacy Informatics Manager: NATALIE GARCIA ([id number])[facility] (SBHLAB)[address] CO2 [Moles/Vol] 27 mmol/L Normal 23-31 [facility] Comment on above: Performed By: #### L MASHA, LAB17 ####Pharmacy Informatics Manager: NATALIE GARCIA ([phone])[facility] (SBHLAB)[address] Creatinine [Mass/Vol] 2.39 mg/dL High 0.57-1.11 [facility] Comment on above: Performed By: #### L MASHA, LAB17 ####Pharmacy Informatics Manager: NATALIE GACRIA ([id number])[facility] (HLAB)[address] GLOMERULAR FILTRATION RATE ML/MIN/1.73 SQ M.PREDICTED 20.4 mL/min/1.73m*2 Low >60.0 [facility] Comment on above: Result Comment: Calc ulation based on the Chronic Kidney Disease Epidemiology Collaboration (CKD-EPI) equation refit without adjustment for race Performed By: #### L AB103, LAB17 ####Pharmacy Informatics Manager: NATALIE GARCIA ([phone])[facility] (HLAB)[address] Glucose [Mass/Vol] 145 mg/dL High 82-115 [facility] Comment on above: Performed By: #### L AB103, LAB17 ####Pharmacy Informatics Manager: NATALIE GARCIA ([id number])[facility] [place] (SBHLAB)[address] Potassium [Moles/Vol] 3.3 mmol/L Low 3.5-5.1 [facility] Comment on above: Result Comment: [facility] potassium values may be up to 0.5 mmol/L lower than serum values. Performed By: #### L AB103, LAB17 ####Pharmacy Informatics Manager: NATALIE GARCIA ([phone])[facility] [place] (SB[facility])[address] Protein [Mass/Vol] 6.4 g/dL Normal 6.4-8.3 [facility] Comment on above: Performed By: #### L AB103, LAB17 ####Pharmacy Informatics Manager: NATALIE GARCIA ([id number])[facility] (SB[facility]AB)[address] Sodium [Moles/Vol] 131 mmol/L Low 136-145 [facility] Comment on above: Performed By: #### L AB103, LAB17 ####Pharmacy Informatics Manager: NATALIE GARCIA ([id number])[facility] (SBHLAB)[address] Urea nitrogen [Mass/Vol] 31 mg/dL High 9-23 [facility] Comment on above: Performed By: #### L AB103, LAB17 ####Pharmacy Informatics Manager: NATALIE GARCIA ([id number])[facility] (SBHLAB)[address] IRON AND TIBCon 06-03-2025 IRON BINDING CAPACITY 184 ug/dL Low 250-450 [facility] Comment on above: Performed By: #### L AB829 ####Pharmacy Informatics Manager: NATALIE GARCIA ([phone])[facility] (SBHLAB)[address] IRON SATURATION 21.2 % Normal 20.0-50.0 [facility] Comment on above: Performed By: #### L AB829 ####Pharmacy Informatics Manager: NATALIE GARCIA ([phone])[facility] (SBHLAB)[address] [place] [address] IRON, TOTAL 39 ug/dL Low 50-170 [facility] Comment on above: Performed By: #### L AB829 ####Pharmacy Informatics Manager: NATALIE GARCIA ([phone])[facility] (SBAB)[address] [place] [address] MAGNESIUMon 06-03-2025 Magnesium [Mass/Vol] 2.0 mg/dL Normal 1.6-2.6 [facility] Comment on above: Result Comment: DORIAN R COMMENTS:Higher values can be expected in females during menses. Performed By: #### L AB103, LAB17 ####Pharmacy Informatics Manager: NATALIE GARCIA ([phone])[facility] ([facility])[address] [place] [address] Progress Noteon 06-03-2025 Progress Note Normal [facility] Progress Note Normal [facility] C. DIFFICILE BY PCR WITH REF ALYSSA TO EIAon 06-02-2025 C. DIFFICILE BY PCR WITH REFLEX TO EIA Normal [facility] Comment on above: Performed By: #### L AB257, [id number], [id number] ####Pharmacy Informatics Manager: VASHTI BAILEY ([phone])[facility] ([address] CBC (HEMOGRAM)on 06-02-2025 Erythrocyte distribution width (RBC) [Ratio] 19.5 % High 11.5-15.0 [facility] Comment on above: Performed By: #### L AB294 ####Pharmacy Informatics Manager: NATALIE GARCIA ([phone])[facility] ([facility])[address] [place] [address] Hematocrit (Bld) [Volume fraction] 23.7 % Low 35.0-47.0 [facility] Comment on above: Performed By: #### L AB294 ####Pharmacy Informatics Manager: NATALIE GARCIA ([id number])[facility] (SBHLAB)[address] Hemoglobin (Bld) [Mass/Vol] 7.4 g/dL Low 11.7-16.0 [facility] Comment on above: Performed By: #### L AB294 ####Pharmacy Informatics Manager: NATALIE GARCIA ([id number])[facility] (SBHLAB)[address] MCH (RBC) [Entitic mass] 26.0 pg Normal 26.0-34.0 [facility] Comment on above: Performed By: #### L AB294 ####Pharmacy Informatics Manager: NATALIE GARCIA ([phone])[facility] (SBHLAB)[address] MCHC 31.2 % Normal 30.5-36.0 [facility] Comment on above: Performed By: #### L AB294 ####Pharmacy Informatics Manager: NATALIE GARCIA ([id number])[facility] (SBHLAB)[address] MCV (RBC) [Entitic vol] 83.2 fL Normal 77.0-99.0 [facility] Comment on above: Performed By: #### L AB294 ####Pharmacy Informatics Manager: NATALIE GARCIA ([phone])[facility] (SBHLAB)[address] Platelet mean volume (Bld) [Entitic vol] 10.0 fL Normal 9.0-12.7 [facility] Comment on above: Performed By: #### L AB294 ####Pharmacy Informatics Manager: NATALIE GARCIA ([phone])[facility] (SBHLAB)[address] Platelets (Bld) [#/Vol] 231 10*3/uL Normal 140-440 [facility] Comment on above: Performed By: #### L AB294 ####Pharmacy Informatics Manager: NATALIE GARCIA ([id number])[facility] (SB[facility]AB)[address] RBC (Bld) [#/Vol] 2.85 10*6/uL Low 3.80-5.20 [facility] Comment on above: Performed By: #### L AB294 ####Pharmacy Informatics Manager: NATALIE GARCIA ([id number])[facility] (SBHLAB)[address] WBC (Bld) [#/Vol] 5.1 10*3/uL Normal 3.6-10.7 [facility] Comment on above: Performed By: #### L AB294 ####Pharmacy Informatics Manager: NATALIE GARCIA ([phone])[facility] (SBHLAB)[address] COMPREHENSIVE METABOLIC PANE Florentin 06-02-2025 Albumin [Mass/Vol] 2.6 g/dL Low 3.4-4.8 [facility] Comment on above: Performed By: #### L AB17, [id number] ####Pharmacy Informatics Manager: NATALIE GARCIA ([phone])[facility] (SBHLAB)[address] ALP [Catalytic activity/Vol] 129 U/L Normal 40-150 [facility] Comment on above: Performed By: #### L AB17, [id number] ####Pharmacy Informatics Manager: NATALIE GARCIA ([phone])[facility] (SBHLAB)[address] ALT [Catalytic activity/Vol] 10 U/L Normal <30 [facility] Comment on above: Performed By: #### L AB17, [id number] ####Pharmacy Informatics Manager: NATALIE GARCIA ([id number])[facility] (SBHLAB)[address] Anion gap [Moles/Vol] 11 mmol/L Normal 3-13 [facility] Comment on above: Performed By: #### L AB17, [id number] ####Pharmacy Informatics Manager: NATALIE GARCIA ([id number])[facility] [place] (SBHLAB)[address] AST [Catalytic activity/Vol] 23 U/L Normal <34 [facility] Comment on above: Performed By: #### L AB17, [id number] ####Pharmacy Informatics Manager: NATALIE GARCIA ([phone])[facility] [place] (SB[facility])[address] Bilirubin [Mass/Vol] 1.1 mg/dL Normal <1.2 [facility] Comment on above: Performed By: #### L AB17, [id number] ####Pharmacy Informatics Manager: NATALIE GARCIA ([phone])[facility] [place] (SB[facility]AB)[address] Calcium [Mass/Vol] 8.8 mg/dL Normal 8.8-10.0 [facility] Comment on above: Performed By: #### L AB17, [id number] ####Pharmacy Informatics Manager: NATALIE GARCIA ([id number])[facility] [place] (SBHLAB)[address] [place] [address] [place] Chloride [Moles/Vol] 98 mmol/L Normal 98-107 [facility] Comment on above: Performed By: #### L AB17, [id number] ####Pharmacy Informatics Manager: NATALIE GARCIA ([phone])[facility] [place] (SBHLAB)[address] [place] [address] [place] CO2 [Moles/Vol] 28 mmol/L Normal 23-31 [facility] Comment on above: Performed By: #### L AB17, [id number] ####Pharmacy Informatics Manager: NATALIE GARCIA ([phone])[facility] [place] (SBHLAB)[address] [place] [address] [place] Creatinine [Mass/Vol] 1.57 mg/dL High 0.57-1.11 [facility] Comment on above: Performed By: #### L AB17, [id number] ####Pharmacy Informatics Manager: NATALIE GARCIA ([id number])[facility] [place] (SBHLAB)[address] GLOMERULAR FILTRATION RATE ML/MIN/1.73 SQ M.PREDICTED 33.8 mL/min/1.73m*2 Low >60.0 [facility] Comment on above: Result Comment: Calc ulation based on the Chronic Kidney Disease Epidemiology Collaboration (CKD-EPI) equation refit without adjustment for race Performed By: #### L AB17, [id number] ####Pharmacy Informatics Manager: NATALIE GARCIA ([phone])[facility] (SBHLAB)[address] Glucose [Mass/Vol] 94 mg/dL Normal 82-115 [facility] Comment on above: Performed By: #### L AB17, [id number] ####Pharmacy Informatics Manager: NATALIE GARICA ([phone])[facility] (SBHLAB)[address] Potassium [Moles/Vol] 3.1 mmol/L Low 3.5-5.1 [facility] Comment on above: Result Comment: [facility] potassium values may be up to 0.5 mmol/L lower than serum values. Performed By: #### L AB17, [id number] ####Pharmacy Informatics Manager: NATALIE GARCIA ([phone])[facility] (HLAB)[address] Protein [Mass/Vol] 6.5 g/dL Normal 6.4-8.3 [facility] Comment on above: Performed By: #### L AB17, [id number] ####Pharmacy Informatics Manager: NATALIE GARCIA ([phone])[facility] (SBHLAB)[address] [place] [address] [place] Sodium [Moles/Vol] 137 mmol/L Normal 136-145 [facility] Comment on above: Performed By: #### L AB17, [id number] ####Pharmacy Informatics Manager: NATALIE GARCIA ([id number])[facility] (SBHLAB)[address] [place] [address] [place] Urea nitrogen [Mass/Vol] 20 mg/dL Normal 9-23 [facility] Comment on above: Performed By: #### L AB17, [id number] ####Pharmacy Informatics Manager: NATALIE GARCIA ([phone])[facility] ([facility])[address] [place] [address] Consulton 06-02-2025 Consult Normal [facility] FERRITINon 06-02-2025 Ferritin [Mass/Vol] 613 ng/mL High 5-204 [facility] Comment on above: Result Comment: DORIAN R COMMENTS:Ferritin levels below 10 ng/mL have been reported as indicative of iron deficiency anemia. Performed By: #### L AB69, LAB68, LAB67 ####Pharmacy Informatics Manager: NATALIE GARCIA ([phone])[facility] ([facility])[address] [place] [address] FOLATEon 06-02-2025 FOLATE RESULT 12.6 ng/mL Normal 7.0-31.4 [facility] Comment on above: Performed By: #### L AB69, LAB68, LAB67 ####Pharmacy Informatics Manager: NATALIE GARCIA ([phone])[facility] ([facility])[address] [place] [address] GASTROINTESTINAL PCR PANELon 06-02-2025 GASTROINTESTINAL PCR PANEL Normal [facility] Comment on above: Performed By: #### L [id number], [id number], [id number] ####Pharmacy Informatics Manager: VASHTI BAILEY ([phone])[facility] ([facility])[address] [place] [address] HEPATITIS B SURFACE ANTIBODY on 06-02-2025 HEPATITIS B VIRUS SURFACE AB <8.0 Normal [facility] Comment on above: Result Comment: ORDE R COMMENTS:Interpretation:<8.0 Non-Reactive8.0-11.9 Equivocal>= 12.0 Ab DetectedNote: If an equivocal result is interpreted, an antibody status is unable to be determined. Collect new specimen if clinically indicated. Performed By: #### L AB472, [id number] ####Pharmacy Informatics Manager: VASHTI BAILEY ([phone])[facility] ([facility])[address] [place] [address] HEPATITIS B SURFACE ANTIGENo n 06-02-2025 HEPATITIS B VIRUS SURFACE AG Not detected Normal Not Detected [facility] Comment on above: Performed By: #### L AB472, [id number] ####Pharmacy Informatics Manager: VASHTI BAILEY ([phone])[facility] [place] [address] LAB ONLY - C DIFF EIAon LAB ONLY - C DIFF EIA C DIFFICILE TOXINS A+B, EIA (A) Reference Positive Negative ORDER COMMENTS: (A) C. Difficile infection is likely present. Correlate with other clinical data. Methodology: Enzyme Immunoassay Normal [facility] Comment on above: Performed By: #### L AB257, [id number], [id number] ####Pharmacy Informatics Manager: VASHTI BAILEY ([phone])[facility] ([facility])[address] [place] [address] MAGNESIUMon 06-02-2025 Magnesium [Mass/Vol] 2.0 mg/dL Normal 1.6-2.6 [facility] Comment on above: Result Comment: ORDE R COMMENTS:Higher values can be expected in females during menses. Performed By: #### L AB17, [id number] ####Pharmacy Informatics Manager: NATALIE GARCIA ([phone])[facility] ([facility])[address] [place] [address] Progress Noteon 06-02-2025 Progress Note Normal [facility] Progress [facility] Normal [facility] Progress Note Normal [facility] Progress Note Normal [facility] VITAMIN B12on 06-02-2025 Cobalamin (Vitamin B12) [Mass/Vol] 1032 pg/mL High 213-816 [facility] Comment on above: Performed By: #### L AB69, LAB68, LAB67 ####Pharmacy Informatics Manager: NATALIE GARCIA ([phone])[facility] ([facility])[address] [place] [address] BASIC METABOLIC PANELon Anion gap [Moles/Vol] 11 mmol/L Normal 3-13 [facility] Comment on above: Performed By: #### L AB103, [id number], LAB15, LAB20 ####Pharmacy Informatics Manager: NATALIE GARCIA ([phone])[facility] ([facility])[address] Calcium [Mass/Vol] 9.4 mg/dL Normal 8.8-10.0 [facility] Comment on above: Performed By: #### L AB103, [id number], LAB15, LAB20 ####Pharmacy Informatics Manager: NATALIE GARCIA ([phone])[facility] [place] ([facility])[address] Chloride [Moles/Vol] 93 mmol/L Low 98-107 [facility] Comment on above: Performed By: #### L AB103, [id number], LAB15, LAB20 ####Pharmacy Informatics Manager: NATALIE GARCIA ([phone])[facility] [place] ([facility])[address] CO2 [Moles/Vol] 30 mmol/L Normal 23-31 [facility] Comment on above: Performed By: #### L AB103, [id number], LAB15, LAB20 ####Pharmacy Informatics Manager: NATALIE GARCIA ([phone])[facility] [place] ([facility])[address] Creatinine [Mass/Vol] 2.34 mg/dL High 0.57-1.11 [facility] Comment on above: Performed By: #### L AB103, [id number], LAB15, LAB20 ####Pharmacy Informatics Manager: NATALIE GARCIA ([id number])[facility] [place] ([facility])[address] [place] [address] [place] GLOMERULAR FILTRATION RATE ML/MIN/1.73 SQ M.PREDICTED 21.0 mL/min/1.73m*2 Low >60.0 [facility] Comment on above: Result Comment: Calc ulation based on the Chronic Kidney Disease Epidemiology Collaboration (CKD-EPI) equation refit without adjustment for race Performed By: #### L AB103, [id number], LAB15, LAB20 ####Pharmacy Informatics Manager: NATALIE GARCIA ([phone])[facility] ([facility])[address] Glucose [Mass/Vol] 174 mg/dL High 82-115 [facility] Comment on above: Performed By: #### L AB103, [id number], LAB15, LAB20 ####Pharmacy Informatics Manager: NATALIE GARCIA ([phone])[facility] ([facility])[address] Potassium [Moles/Vol] 3.5 mmol/L Normal 3.5-5.1 [facility] Comment on above: Result Comment: [facility] potassium values may be up to 0.5 mmol/L lower than serum values. Performed By: #### L AB103, [id number], LAB15, LAB20 ####Pharmacy Informatics Manager: NATALIE GARCIA ([phone])[facility] ([facility])[address] Sodium [Moles/Vol] 134 mmol/L Low 136-145 [facility] Comment on above: Performed By: #### L AB103, [id number], LAB15, LAB20 ####Pharmacy Informatics Manager: NATALIE GARCIA ([phone])[facility] Urea nitrogen [Mass/Vol] 41 mg/dL High 9-23 [facility] Comment on above: Performed By: #### L AB103, [id number], LAB15, LAB20 ####Pharmacy Informatics Manager: NATALIE GARCIA ([phone])[facility] BLOOD TYPE AND SCREEN GELon 06-01-2025 ABO GROUPING A Normal [facility] Comment on above: Performed By: #### L AB276 ####Pharmacy Informatics Manager: NTAALIE GARCIA ([id number])[facility] ([facility])[address] RH TYPE IN BLOOD Positive Normal [facility] Comment on above: Performed By: #### L AB276 ####Pharmacy Informatics Manager: NATALIE GARCIA ([phone])[facility] ([facility])[address] CBC WITH AUTO DIFFERENTIALon 06-01-2025 Basophils (Bld) [#/Vol] 0.0 10*3/uL Normal 0.0-0.2 [facility] Comment on above: Performed By: #### L [id number] ####Pharmacy Informatics Manager: NATALIE GARCIA ([phone])[facility] ([facility])[address] Basophils/100 WBC (Bld) 0.7 % Normal 0.0-2.0 [facility] Comment on above: Performed By: #### L [id number] ####Pharmacy Informatics Manager: NATALIE GARCIA ([phone])[facility] ([facility])[address] Eosinophils (Bld) [#/Vol] 0.2 10*3/uL Normal 0.0-0.5 [facility] Comment on above: Performed By: #### L [id number] ####Pharmacy Informatics Manager: NATALIE GARCIA ([phone])[facility] ([facility])[address] [place] [address] Eosinophils/100 WBC (Bld) 2.9 % Normal 0.0-6.0 [facility] Comment on above: Performed By: #### L [id number] ####Pharmacy Informatics Manager: NATALIE GARCIA ([phone])[facility] ([facility])[address] [place] [address] Erythrocyte distribution width (RBC) [Ratio] 20.6 % High 11.5-15.0 [facility] Comment on above: Performed By: #### L [id number] ####Pharmacy Informatics Manager: NATALIE GARCIA ([id number])[facility] ([facility])[address] Hematocrit (Bld) [Volume fraction] 23.0 % Low 35.0-47.0 [facility] Comment on above: Performed By: #### L [id number] ####Pharmacy Informatics Manager: NATALIE GARCIA ([phone])[facility] [place] ([facility])[address] Hemoglobin (Bld) [Mass/Vol] 7.1 g/dL Low 11.7-16.0 [facility] Comment on above: Performed By: #### L [id number] ####Pharmacy Informatics Manager: NATALIE GARCIA ([phone])[facility])[address] IMMATURE GRANS % 0.4 % Normal 0.0-2.0 [facility] Comment on above: Performed By: #### L [id number] ####Pharmacy Informatics Manager: NATALIE GARCIA ([phone])[facility] ([facility])[address] IMMATURE GRANS ABSOLUTE 0.0 10*3/uL Normal <0.1 [facility] Comment on above: Performed By: #### L [id number] ####Pharmacy Informatics Manager: NATALIE GARCIA ([phone])[facility] ([facility])[address] [place] [address] Lymphocytes (Bld) [#/Vol] 0.9 10*3/uL Low 1.0-4.3 [facility] Comment on above: Performed By: #### L [id number] ####Pharmacy Informatics Manager: NATALIE GARCIA ([phone])[facility] ([facility])[address] [place] [address] [place] Lymphocytes/100 WBC (Bld) 15.7 % Normal 15.0-45.0 [facility] Comment on above: Performed By: #### L [id number] ####Pharmacy Informatics Manager: NATALIE GARCIA ([phone])[facility] ([facility])[address] MCH (RBC) [Entitic mass] 25.4 pg Low 26.0-34.0 [facility] Comment on above: Performed By: #### L [id number] ####Pharmacy Informatics Manager: NATALIE GARCIA ([phone])[facility] ([facility])[address] MCHC 30.9 % Normal 30.5-36.0 [facility] Comment on above: Performed By: #### L [id number] ####Pharmacy Informatics Manager: NATALIE GARCIA ([phone])[facility] [place] ([facility])[address] MCV (RBC) [Entitic vol] 82.1 fL Normal 77.0-99.0 [facility] Comment on above: Performed By: #### L [id number] ####Pharmacy Informatics Manager: NATALIE GARCIA ([phone])[facility] [place] ([facility])[address] Monocytes (Bld) [#/Vol] 0.6 10*3/uL Normal 0.0-0.9 [facility] Comment on above: Performed By: #### L [id number] ####Pharmacy Informatics Manager: NATALIE GARCIA ([phone])[facility] ([facility])[address] Monocytes/100 WBC (Bld) 11.4 % Normal 5.0-13.0 [facility] Comment on above: Performed By: #### L [id number] ####Pharmacy Informatics Manager: NATALIE GARCIA ([phone])[facility] [place] ([facility])[address] NEUTROPHILS ABSOLUTE 3.8 10*3/uL Normal 1.8-7.5 [facility] Comment on above: Performed By: #### L [id number] ####Pharmacy Informatics Manager: NATALIE GARCIA ([phone])[facility] ([facility])[address] Neutrophils/100 WBC (Bld) 68.9 % Normal 38.0-82.0 [facility] Comment on above: Performed By: #### L [id number] ####Pharmacy Informatics Manager: NATALIE GARCIA ([phone])[facility] ([facility])[address] NRBC 0.0 /100 WBCs Normal 0.0-2.0 [facility] Comment on above: Performed By: #### L [id number] ####Pharmacy Informatics Manager: NATALIE GARCIA ([phone])[facility] ([facility])[address] Platelet mean volume (Bld) [Entitic vol] 9.9 fL Normal 9.0-12.7 [facility] Comment on above: Performed By: #### L [id number] ####Pharmacy Informatics Manager: NATALIE GARCIA ([id number])[facility]ITAL[facility] ([facility])[address] Platelets (Bld) [#/Vol] 244 10*3/uL Normal 140-440 [facility] Comment on above: Performed By: #### L [id number] ####Pharmacy Informatics Manager: NATALIE GARCIA ([phone])[facility] ([facility])[address] [place] [address] [place] RBC (Bld) [#/Vol] 2.80 10*6/uL Low 3.80-5.20 [facility] Comment on above: Performed By: #### L [id number] ####Pharmacy Informatics Manager: NATALIE GARCIA ([phone])[facility]ITAL[facility] ([facility])[address] [place] [address] [place] WBC (Bld) [#/Vol] 5.5 10*3/uL Normal 3.6-10.7 [facility] Comment on above: Performed By: #### L [id number] ####Pharmacy Informatics Manager: NATALIE GARCIA ([phone])[facility] ([facility])[address] CBC-Complete Blood Cnt No Di ffon 06-01-2025 Erythrocyte distribution width (RBC) [Ratio] 20.5 % High 11.6-14.6 [facility] Comment on above: Performed By: #### L 100.0500, L100.4500 ####[facility] [address] [place], [address] Hematocrit (Bld) [Volume fraction] 21.6 % Low 37-47 [facility] Comment on above: Performed By: #### L 100.0500, L100.4500 ####[facility] [address] [place], [address] Hemoglobin (Bld) [Mass/Vol] 6.5 g/dL Low 12.0-15.0 [facility] Comment on above: Performed By: #### L 100.0500, L100.4500 ####[facility] [address] [place], [address] MCH (RBC) [Entitic mass] 25.1 pg Low 27.0-32.0 [facility] Comment on above: Performed By: #### L 100.0500, L100.4500 ####[facility] [address] [place], [address] MCHC (RBC) [Mass/Vol] 30.1 g/dL Low 32-36 [facility] Comment on above: Performed By: #### L 100.0500, L100.4500 ####[facility] [address] [place], [address] MCV (RBC) [Entitic vol] 83.4 fL Normal 81-99 [facility] Comment on above: Performed By: #### L 100.0500, L100.4500 ####[facility] [address] [place], [address] Platelet mean volume (Bld) [Entitic vol] 10.1 fL Normal 6.2-12.0 [facility] Comment on above: Performed By: #### L 100.0500, L100.4500 ####[facility] [address] [place], [address] Platelets (Bld) [#/Vol] 215 10*3/uL Normal 150-450 [facility] Comment on above: Performed By: #### L 100.0500, L100.4500 ####[facility] [address] [place], [address] RBC (Bld) [#/Vol] 2.59 10*6/uL Low 4.2-5.4 [facility] Comment on above: Performed By: #### L 100.0500, L100.4500 ####[facility] [address] [place], [address] RDW SD 63.2 fl High 35.1-43.9 [facility] Comment on above: Performed By: #### L 100.0500, L100.4500 ####[facility] [address] [place], [address] WBC (Bld) [#/Vol] 4.9 10*3/uL Normal 4.4-11.0 [facility] Comment on above: Performed By: #### L 100.0500, L100.4500 ####[facility] [address] [place], [address] Consulton 06-01-2025 Consult Normal [facility] Differential Commenton 06-01 SMEAR COMMENT SCANNED Normal [facility] Comment on above: Result Comment: 2+ A NISOCYTOSIS Performed By: #### L 100.0500, L100.4500 ####[facility] [address] [place], [address] ECG 12-LEADon 06-01-2025 ECG 12-LEAD IMPRESSION: Sinus rhythm Atrial premature complexes Left bundle branch block No previous available for comparison Electronically Signed On 06-01-2025 13:44:04 EDT by Omid Orona Normal [facility] ED Provider Noteon ED Provider Note Normal [facility] HEMOGLOBIN AND HEMATOCRIT, B LOODon 06-01-2025 Hematocrit (Bld) [Volume fraction] 25.2 % Low 35.0-47.0 [facility] Comment on above: Order Comment: Recom mend 1 hour post transfusion Performed By: #### L [id number] ####Pharmacy Informatics Manager: NATALIE GARCIA ([phone])[facility] [place] ([facility])[address] [place] [address] Hemoglobin (Bld) [Mass/Vol] 7.8 g/dL Low 11.7-16.0 [facility] Comment on above: Order Comment: Recom mend 1 hour post transfusion Performed By: #### L AB753 ####Pharmacy Informatics Manager: NATALIE GARCIA ([phone])[facility] ([facility])[address] [place] [address] HEPATIC FUNCTION PANELon Albumin [Mass/Vol] 2.2 g/dL Low 3.4-4.8 [facility] Comment on above: Performed By: #### L AB103, [id number], LAB15, LAB20 ####Pharmacy Informatics Manager: NATALIE GARCIA ([id number])[facility] ([facility])[address] ALP [Catalytic activity/Vol] 148 U/L Normal 40-150 [facility] Comment on above: Performed By: #### L AB103, [id number], LAB15, LAB20 ####Pharmacy Informatics Manager: NATALIE GARCIA ([id number])[facility] [place] ([facility])[address] [place] [address] ALT [Catalytic activity/Vol] 15 U/L Normal <30 [facility] Comment on above: Performed By: #### L AB103, [id number], LAB15, LAB20 ####Pharmacy Informatics Manager: NATALIE SIMONDANIEL ([phone])[facility] ([facility])[address] AST [Catalytic activity/Vol] 21 U/L Normal <34 [facility] Comment on above: Performed By: #### L AB103, [id number], LAB15, LAB20 ####Pharmacy Informatics Manager: NATALIE SIMONDANIEL ([phone])[facility] ([facility])[address] Bilirubin [Mass/Vol] 0.5 mg/dL Normal <1.2 [facility] Comment on above: Performed By: #### L AB103, [id number], LAB15, LAB20 ####Pharmacy Informatics Manager: NATALIE SIMONDANIEL ([phone])[facility] ([facility])[address] [place] [address] Bilirubin.indirect [Mass/Vol] 0.2 mg/dL Normal <0.5 [facility] Comment on above: Performed By: #### L AB103, [id number], LAB15, LAB20 ####Pharmacy Informatics Manager: NATALIE SIMONDANIEL ([phone])[facility] ([facility])[address] [place] [address] Protein [Mass/Vol] 6.5 g/dL Normal 6.4-8.3 [facility] Comment on above: Result Comment: Seru m protein values are higher than plasma values. Samples from recumbent persons are lower by up to 0.5 g/dL as compared to ambulatory persons. After 60 years values are lower by up to 0.2 g/dL. Performed By: #### L AB103, [id number], LAB15, LAB20 ####Pharmacy Informatics Manager: NATALIE SIMONDANIEL ([phone])[facility] ([facility] [place] [address] HIGH SENSITIVITY TROPONIN, S ERIAL BASELINEon 06-01-2025 TROPONIN HS SERIAL BASELINE 12 ng/L Normal <=14 [facility] Comment on above: Result Comment: In i ndividuals presenting with symptoms > 2h, a baseline troponin <= 5 ng/L suggests acutecardiac injury is unlikely and further serial testing is generally not indicated. Performed By: #### L AB103, [id number], LAB15, LAB20 ####Pharmacy Informatics Manager: NATALIE GARCIA ([phone])[facility] ([facility] HIGH SENSITIVITY TROPONIN, S ERIAL, SECOND TESTon 06-01-2025 2H TROPONIN HS (SERIAL 2ND TROPONIN) 13 ng/L Normal <=14 [facility] Comment on above: Result Comment: Risi ng or falling troponin delta below 2 ng/L as compared to baseline value suggests thatacute cardiac injury is unlikely. Performed By: #### L [id number] ####Pharmacy Informatics Manager: NATALIE GARCIA ([phone])[facility] ([facility])[address] [place] [address] MAGNESIUMon 06-01-2025 Magnesium [Mass/Vol] 2.1 mg/dL Normal 1.6-2.6 [facility] Comment on above: Result Comment: ORDE R COMMENTS:Higher values can be expected in females during menses. Performed By: #### L AB103, [id number], LAB15, LAB20 ####Pharmacy Informatics Manager: NATALIE GARCIA ([phone])[facility] ([facility])[address] [place] [address] Nursing Noteon 06-01-2025 Nursing Note Normal [facility] Ova and Parasites 8623on OP Normal [facility] Comment on above: Performed By: #### M 600.5000 ####[facility] [address] [place], [address] .GFRon 04-18-2025 Estimated Glomerular Filtration Rate 12 ml/min/1.73sqm [facility] Comment on above: Result Comment: Stages [...] C BC, GFR, MORPH, RFP, DIFF #### [address] [address] [facility] 04-18-2025 BUN/Creatinine Ratio 13.5 ratio Normal 10.0-22.0 [facility] Comment on above: Performed By: #### C BC, GFR, MORPH, RFP, DIFF #### [address] [address] Calcium [Mass/Vol] 10.0 mg/dL Normal 8.7-10.4 [facility] Comment on above: Performed By: #### C BC, GFR, MORPH, RFP, DIFF #### [address] [address] Chloride [Moles/Vol] 96 mmol/L Low 98-110 [facility] Comment on above: Performed By: #### C BC, GFR, MORPH, RFP, DIFF #### [address] [address] CO2 [Moles/Vol] 30 mmol/L Normal 22-32 [facility] Comment on above: Performed By: #### C BC, GFR, MORPH, RFP, DIFF #### [address] [address] Creatinine [Mass/Vol] 3.64 mg/dL High 0.50-1.20 [facility] Comment on above: Result Comment: Test ing performed on [employer] analyzer using enzymatic creatinine methodology. Performed By: #### C BC, GFR, MORPH, RFP, DIFF #### [address] [address] Electrolyte Balance 11.0 mEq/L Normal 4.0-15.0 [facility] Comment on above: Performed By: #### C BC, GFR, MORPH, RFP, DIFF #### [address] [address] Glucose [Mass/Vol] 147 mg/dL High 82-115 [facility] Comment on above: Performed By: #### C BC, GFR, MORPH, RFP, DIFF #### [address] [address] Potassium [Moles/Vol] 4.4 mmol/L Normal 3.5-5.0 [facility] Comment on above: Performed By: #### C BC, GFR, MORPH, RFP, DIFF #### [address] [address] Sodium [Moles/Vol] 137 mmol/L Normal 136-145 [facility] Comment on above: Performed By: #### C BC, GFR, MORPH, RFP, DIFF #### [address] [address] Urea nitrogen [Mass/Vol] 49.0 mg/dL High 8.0-22.0 [facility] Comment on above: Performed By: #### C BC, GFR, MORPH, RFP, DIFF #### [address] [address] .Auto Diffon 04-16-2025 Basophil, Absolute 0.2 10 3/mcL Normal 0.0-0.3 [facility] Comment on above: Performed By: #### M G, RFP, BMP, GFR #### [address] [address] Basophils/100 WBC (Bld) 2.3 % Normal 0.0-2.5 [facility] Comment on above: Performed By: #### M G, RFP, BMP, GFR #### [address] [address] Eosinophil, Absolute 0.2 10 3/mcL Normal 0.0-0.7 [facility] MAIN Comment on above: Performed By: #### M G, RFP, BMP, GFR #### [address] [address] Eosinophils/100 WBC (Bld) 2.1 % Normal 0.0-6.0 [facility] Comment on above: Performed By: #### M G, RFP, BMP, GFR #### [facility] [address] [place] [address] Lymphocyte, Absolute 1.3 10 3/mcL Normal 0.9-4.3 [facility] Comment on above: Performed By: #### M G, RFP, BMP, GFR #### [facility] [address] [place] [address] Lymphocytes/100 WBC (Bld) 17.1 % Low 20.0-40.0 [facility] Comment on above: Performed By: #### M G, RFP, BMP, GFR #### [facility] [address] [place] [address] Monocyte, Absolute 0.8 10 3/mcL Normal 0.1-1.4 [facility] Comment on above: Performed By: #### M G, RFP, BMP, GFR #### [address] [address] Monocytes/100 WBC (Bld) 10.7 % Normal 2.0-13.0 [facility] MA[facility] Comment on above: Performed By: #### M G, RFP, BMP, GFR #### [address] [address] Neutrophils/100 WBC (Bld) 67.8 % Normal 50.0-75.0 [facility] Comment on above: Performed By: #### M G, RFP, BMP, GFR #### [address] [address] .GFRon 04-16-2025 Estimated Glomerular Filtration Rate 9 ml/min/1.73sqm Normal [facility] MA[facility] Comment on above: Result Comment: [...] #### M G, RFP, BMP, GFR #### [place] [address] .Morphon 04-16-2025 Anisocytosis Ql (Bld) 2+ Normal [facility] MAIN Comment on above: Performed By: #### M G, RFP, BMP, GFR #### [place] [address] Microcytosis 2+ Normal [facility] MA[facility] Comment on above: Performed By: #### M G, RFP, BMP, GFR #### [place] [address] Ovalocytes 1+ [facility] MAIN Comment on above: Performed By: #### M G, RFP, BMP, GFR #### [place] [address] Platelet Estimate Normal [facility] MAIN Comment on above: Performed By: #### M G, RFP, BMP, GFR #### [place] [address] Poik 1+ [facility] MAIN Comment on above: Performed By: #### M G, RFP, BMP, GFR #### [place] [address] Polychrom 1+ [facility] MAIN Comment on above: Performed By: #### M G, RFP, BMP, GFR #### [place] [address] .NEUABSon 04-16-2025 Neutrophil, Absolute 5.2 10 3/mcL Normal 2.3-8.1 [facility] MAIN Comment on above: Performed By: #### M G, RFP, BMP, GFR #### [place] [address] BMPon 04-16-2025 BUN/Creatinine Ratio 16.9 ratio Normal 10.0-22.0 [facility] MAIN Comment on above: Performed By: #### M G, RFP, BMP, GFR #### [place] [address] Calcium [Mass/Vol] 9.9 mg/dL Normal 8.7-10.4 [facility] MAIN Comment on above: Performed By: #### Iain Mckeon, RFP, BMP, GFR #### [address] [id number] Chloride [Moles/Vol] 97 mmol/L Low 98-110 [facility] MAIN Comment on above: Performed By: #### Iain Mckeon, RFP, BMP, GFR #### [address] [address] CO2 [Moles/Vol] 29 mmol/L Normal 22-32 [facility] MAIN Comment on above: Performed By: #### Iain Mckeon, RFP, BMP, GFR #### [address] [address] Creatinine [Mass/Vol] 4.92 mg/dL High 0.50-1.20 [facility] MAIN Comment on above: Result Comment: Test ing performed on [employer] analyzer using enzymatic creatinine methodology. Performed By: #### Iain Mckeon, RFP, BMP, GFR #### [address] [address] Electrolyte Balance 10.0 mEq/L Normal 4.0-15.0 [facility] Comment on above: Performed By: #### Iain Mckeon, RFP, BMP, GFR #### [address] [address] Glucose [Mass/Vol] 154 mg/dL High 82-115 [facility] Comment on above: Performed By: #### Iain Mckeon, RFP, BMP, GFR #### [address] [address] Potassium [Moles/Vol] 4.4 mmol/L Normal 3.5-5.0 [facility] Comment on above: Performed By: #### Iain Mckeon, RFP, BMP, GFR #### [address] [address] Sodium [Moles/Vol] 136 mmol/L Normal 136-145 [facility] Comment on above: Performed By: #### Iain Mckeon, RFP, BMP, GFR #### [place] [id number] Urea nitrogen [Mass/Vol] 83.0 mg/dL High 8.0-22.0 [facility] Comment on above: Performed By: #### M G, RFP, BMP, GFR #### [address] [address] CBCon 04-16-2025 Platelet 286 10 3/mcL Normal 150-450 [facility] Comment on above: Performed By: #### M G, RFP, BMP, GFR #### [place] [address] Platelet mean volume (Bld) [Entitic vol] 7.3 fL Normal 6.6-10.5 [facility] Comment on above: Performed By: #### M G, RFP, BMP, GFR #### [place] [address] Erythrocyte distribution width (RBC) [Ratio] 23.8 % High 11.5-15.5 [facility] Comment on above: Performed By: #### M G, RFP, BMP, GFR #### [place] [address] Hematocrit (Bld) [Volume fraction] 28.0 % Low 34.0-46.0 [facility] Comment on above: Performed By: #### M G, RFP, BMP, GFR #### [place] [address] Hgb 8.9 G/dL Low 12.0-16.0 [facility] Comment on above: Performed By: #### M G, RFP, BMP, GFR #### [address] [address] MCH (RBC) [Entitic mass] 23.3 pg Low 27.0-33.0 [facility] Comment on above: Performed By: #### M G, RFP, BMP, GFR #### [place] [id number] MCHC 31.9 G/dL Low 32.0-36.0 [facility] Comment on above: Performed By: #### M G, RFP, BMP, GFR #### [address] [address] MCV (RBC) [Entitic vol] 73.2 fL Low 80.0-99.0 [facility] Comment on above: Performed By: #### M G, RFP, BMP, GFR #### [address] [address] RBC 3.83 10 6/mcL Low 4.10-5.30 [facility] Comment on above: Performed By: #### M G, RFP, BMP, GFR #### [place] [id number] [address] [place] [address] WBC 7.6 10 3/mcL Normal 4.5-10.8 [facility] Comment on above: Performed By: #### M G, RFP, BMP, GFR #### [address] [address] XR CHEST 1 VIEWon 04-16-2025 XR CHEST [...] 04/16/2025 8:28:15 AM Ordering Provider: ELKE MARQUEZ [facility] .GFRon 04-13-2025 Estimated Glomerular Filtration Rate 12 ml/min/1.73sqm [facility] Comment on above: Result Comment: Stages [...] C BC, GFR, MORPH, RFP, DIFF #### [place] [address] .Manual Diffon 04-13-2025 Bands 1.0 % Normal 0.0-5.0 [facility] Comment on above: Performed By: #### C BC, GFR, MORPH, RFP, DIFF #### [place] [address] Basophil %, Manual 0.0 % Normal 0.0-2.5 [facility] Comment on above: Performed By: #### C BC, GFR, MORPH, RFP, DIFF #### [place] [address] Basophil, Abs Manual 0.0 10 3/mcL Normal 0.0-0.3 [facility] Comment on above: Performed By: #### C BC, GFR, MORPH, RFP, DIFF #### [place] [address] Eosinophil %, Manual 1.0 % Normal 0.0-6.0 [facility] Comment on above: Performed By: #### C BC, GFR, MORPH, RFP, DIFF #### [place] [address] Eosinophil, Abs Manual 0.1 10 3/mcL Normal 0.0-0.7 [facility] Comment on above: Performed By: #### C BC, GFR, MORPH, RFP, DIFF #### [place] [address] Lymphocyte %, Manual 8.0 % Low 20.0-40.0 [facility] Comment on above: Performed By: #### C BC, GFR, MORPH, RFP, DIFF #### [address] [address] Lymphocyte, Abs Manual 0.6 10 3/mcL Low 0.9-4.3 [facility] Comment on above: Performed By: #### C BC, GFR, MORPH, RFP, DIFF #### [place] [address] Monocyte %, Manual 9.0 % Normal 2.0-13.0 [facility] Comment on above: Performed By: #### C BC, GFR, MORPH, RFP, DIFF #### [place] [address] Monocyte, Abs Manual 0.7 10 3/mcL Normal 0.1-1.4 [facility] Comment on above: Performed By: #### C BC, GFR, MORPH, RFP, DIFF #### [place] [address] Neutrophil %, Manual 81.0 % High 50.0-75.0 [facility] Comment on above: Performed By: #### C BC, GFR, MORPH, RFP, DIFF #### [place] [id number] Neutrophil, Abs Manual 6.3 10 3/mcL Normal 2.3-8.1 [facility] Comment on above: Performed By: #### C BC, GFR, MORPH, RFP, DIFF #### [place] [address] Nucleated RBC 0.0 /100 WBC Normal [facility] Comment on above: Performed By: #### C BC, GFR, MORPH, RFP, DIFF #### [place] [address] .Morphon 04-13-2025 Anisocytosis Ql (Bld) 1+ Normal [facility] Comment on above: Performed By: #### C BC, GFR, MORPH, RFP, DIFF #### [place] [address] Hypochrom 1+ Normal [facility] Comment on above: Performed By: #### C BC, GFR, MORPH, RFP, DIFF #### [place] [address] Large Platelets Few Normal [facility] Comment on above: Performed By: #### C BC, GFR, MORPH, RFP, DIFF #### [place] [address] Microcytosis 1+ Normal [facility] Comment on above: Performed By: #### C BC, GFR, MORPH, RFP, DIFF #### [place] [address] Ovalocytes 1+ [facility] Comment on above: Performed By: #### C BC, GFR, MORPH, RFP, DIFF #### [place] [address] Platelet Estimate Normal [facility] Comment on above: Performed By: #### C BC, GFR, MORPH, RFP, DIFF #### [place] [address] Poik 1+ [facility] Comment on above: Performed By: #### C BC, GFR, MORPH, RFP, DIFF #### [place] [address] Polychrom 1+ [facility] Comment on above: Performed By: #### C BC, GFR, MORPH, RFP, DIFF #### [place] [address] Target Cell 1+ [facility] Comment on above: Performed By: #### C BC, GFR, MORPH, RFP, DIFF #### [place] [address] BMPon 04-13-2025 BUN/Creatinine Ratio 15.1 ratio Normal 10.0-22.0 [facility] Comment on above: Performed By: #### C BC, GFR, MORPH, RFP, DIFF #### [place] [address] Calcium [Mass/Vol] 9.6 mg/dL Normal 8.7-10.4 [facility] Comment on above: Performed By: #### C BC, GFR, MORPH, RFP, DIFF #### [address] [address] Chloride [Moles/Vol] 98 mmol/L Normal 98-110 [facility] Comment on above: Performed By: #### C BC, GFR, MORPH, RFP, DIFF #### [address] [address] CO2 [Moles/Vol] 30 mmol/L Normal 22-32 [facility] Comment on above: Performed By: #### C BC, GFR, MORPH, RFP, DIFF #### [address] [address] Creatinine [Mass/Vol] 3.78 mg/dL High 0.50-1.20 [facility] Comment on above: Result Comment: Test ing performed on [employer] analyzer using enzymatic creatinine methodology. Performed By: #### C BC, GFR, MORPH, RFP, DIFF #### [address] [address] Electrolyte Balance 11.0 mEq/L Normal 4.0-15.0 [facility] Comment on above: Performed By: #### C BC, GFR, MORPH, RFP, DIFF #### [address] [address] Glucose [Mass/Vol] 134 mg/dL High 82-115 [facility] Comment on above: Performed By: #### C BC, GFR, MORPH, RFP, DIFF #### [address] [address] Potassium [Moles/Vol] 4.0 mmol/L Normal 3.5-5.0 [facility] Comment on above: Performed By: #### C BC, GFR, MORPH, RFP, DIFF #### [address] [address] Sodium [Moles/Vol] 139 mmol/L Normal 136-145 [facility] Comment on above: Performed By: #### C BC, GFR, MORPH, RFP, DIFF #### [address] [address] Urea nitrogen [Mass/Vol] 57.0 mg/dL High 8.0-22.0 [facility] Comment on above: Performed By: #### C BC, GFR, MORPH, RFP, DIFF #### [place] [address] CBCon 04-13-2025 Erythrocyte distribution width (RBC) [Ratio] 24.5 % High 11.5-15.5 [facility] Comment on above: Performed By: #### C BC, GFR, MORPH, RFP, DIFF #### [place] [address] Hematocrit (Bld) [Volume fraction] 28.8 % Low 34.0-46.0 [facility] Comment on above: Performed By: #### C BC, GFR, MORPH, RFP, DIFF #### [place] [address] Hgb 9.3 G/dL Low 12.0-16.0 [facility] Comment on above: Performed By: #### C BC, GFR, MORPH, RFP, DIFF #### [place] [address] MCH (RBC) [Entitic mass] 23.9 pg Low 27.0-33.0 [facility] Comment on above: Performed By: #### C BC, GFR, MORPH, RFP, DIFF #### [place] [address] MCHC 32.1 G/dL Normal 32.0-36.0 [facility] Comment on above: Performed By: #### C BC, GFR, MORPH, RFP, DIFF #### [place] [address] MCV (RBC) [Entitic vol] 74.3 fL Low 80.0-99.0 [facility] Comment on above: Performed By: #### C BC, GFR, MORPH, RFP, DIFF #### [place] [address] Platelet 272 10 3/mcL Normal 150-450 [facility] Comment on above: Performed By: #### C BC, GFR, MORPH, RFP, DIFF #### [place] [address] Platelet mean volume (Bld) [Entitic vol] 7.6 fL Normal 6.6-10.5 [facility] Comment on above: Performed By: #### C BC, GFR, MORPH, RFP, DIFF #### [place] [address] RBC 3.87 10 6/mcL Low 4.10-5.30 [facility] Comment on above: Performed By: #### C BC, GFR, MORPH, RFP, DIFF #### [place] [address] WBC 7.8 10 3/mcL Normal 4.5-10.8 [facility] Comment on above: Performed By: #### C BC, GFR, MORPH, RFP, DIFF #### [place] [address] HBSABon 04-13-2025 Hep B Surf Ab 3.1 mIU/mL Low >=10.0 [facility] Comment on above: Result Comment: [...] C BC, GFR, MORPH, RFP, DIFF #### [place] [address] HBSAGon 04-13-2025 Hep B Surf Ag Non-Reactive Normal Non-Reactive [facility] Comment on above: Performed By: #### C BC, GFR, MORPH, RFP, DIFF #### [place] [id number] HBcTon 04-13-2025 Hepatitis B Core Total Non-Reactive Normal Non-Reactiv e [facility] Comment on above: Performed By: #### M G, RFP, BMP, GFR #### [place] [address] Hepatitis B Core Total Interp See Interp Normal [facility] Comment on above: Result Comment: Clinical Interpretation: Samples with a value of <0.50 are considered nonreactive for total antibodies to Hepatitis B Core Antigen. Performed By: #### M G, RFP, BMP, GFR #### [address] [address] PHOSon 04-13-2025 Phosphate [Mass/Vol] 3.1 mg/dL Normal 2.4-5.1 [facility] Comment on above: Performed By: #### C BC, GFR, MORPH, RFP, DIFF #### [address] [address] .GFRon 04-10-2025 Estimated Glomerular Filtration Rate 19 ml/min/1.73sqm Normal [facility] Comment on above: Result Comment: [...] C BC, GFR, MORPH, RFP, DIFF #### [address] [address] BMPon 04-10-2025 BUN/Creatinine Ratio 11.9 ratio Normal 10.0-22.0 [facility] Comment on above: Performed By: #### C BC, GFR, MORPH, RFP, DIFF #### [address] [address] Calcium [Mass/Vol] 9.0 mg/dL Normal 8.7-10.4 [facility] Comment on above: Performed By: #### C BC, GFR, MORPH, RFP, DIFF #### [address] [address] Chloride [Moles/Vol] 98 mmol/L Normal 98-110 [facility] Comment on above: Performed By: #### C BC, GFR, MORPH, RFP, DIFF #### [address] [address] CO2 [Moles/Vol] 31 mmol/L Normal 22-32 [facility] Comment on above: Performed By: #### C BC, GFR, MORPH, RFP, DIFF #### [address] [address] Creatinine [Mass/Vol] 2.52 mg/dL High 0.50-1.20 [facility] Comment on above: Result Comment: Test ing performed on [employer] analyzer using enzymatic creatinine methodology. Performed By: #### C BC, GFR, MORPH, RFP, DIFF #### [address] [address] Electrolyte Balance 9.0 mEq/L Normal 4.0-15.0 [facility] Comment on above: Performed By: #### C BC, GFR, MORPH, RFP, DIFF #### [address] [address] Glucose [Mass/Vol] 153 mg/dL High 82-115 [facility] Comment on above: Performed By: #### C BC, GFR, MORPH, RFP, DIFF #### [address] [address] Potassium [Moles/Vol] 4.2 mmol/L Normal 3.5-5.0 [facility] Comment on above: Performed By: #### C BC, GFR, MORPH, RFP, DIFF #### [address] [address] Sodium [Moles/Vol] 138 mmol/L Normal 136-145 [facility] Comment on above: Performed By: #### C BC, GFR, MORPH, RFP, DIFF #### [address] [address] Urea nitrogen [Mass/Vol] 30.0 mg/dL High 8.0-22.0 [facility] Comment on above: Performed By: #### C BC, GFR, MORPH, RFP, DIFF #### [address] [address] TROPHSon 04-10-2025 High Sensitivity Troponin I 17 ng/L Normal 0-34 [facility] Comment on above: Result Comment: High Sensitive Troponin I Reference Ranges: Female: 0-34 ng/L Male: 0-54 ng/L Testing performed on [email or web address] IM analyzer using direct chemiluminescent technology. Performed By: #### C BC, GFR, MORPH, RFP, DIFF #### [place] [address] .Auto Diffon 04-09-2025 Basophil, Absolute 0.1 10 3/mcL Normal 0.0-0.3 [facility] Comment on above: Performed By: #### M G, RFP, BMP, GFR #### [place] [address] Basophils/100 WBC (Bld) 0.9 % Normal 0.0-2.5 [facility] Comment on above: Performed By: #### M G, RFP, BMP, GFR #### [place] [address] Eosinophil, Absolute 0.2 10 3/mcL Normal 0.0-0.7 [facility] Comment on above: Performed By: #### M G, RFP, BMP, GFR #### [place] [address] Eosinophils/100 WBC (Bld) 3.2 % Normal 0.0-6.0 [facility] Comment on above: Performed By: #### M G, RFP, BMP, GFR #### [place] [address] Lymphocyte, Absolute 0.6 10 3/mcL Low 0.9-4.3 [facility] Comment on above: Performed By: #### M G, RFP, BMP, GFR #### [place] [phone] Lymphocytes/100 WBC (Bld) 11.4 % Low 20.0-40.0 [facility] Comment on above: Performed By: #### M G, RFP, BMP, GFR #### [place] [address] Monocyte, Absolute 0.9 10 3/mcL Normal 0.1-1.4 [facility] Comment on above: Performed By: #### M G, RFP, BMP, GFR #### [address] [address] Monocytes/100 WBC (Bld) 16.2 % High 2.0-13.0 [facility] Comment on above: Performed By: #### M G, RFP, BMP, GFR #### [address] [address] Neutrophils/100 WBC (Bld) 68.3 % Normal 50.0-75.0 [facility] Comment on above: Performed By: #### M G, RFP, BMP, GFR #### [address] [address] .GFRon 04-09-2025 Estimated Glomerular Filtration Rate 11 ml/min/1.73sqm Normal [facility] Comment on above: Result Comment: [...] #### M G, RFP, BMP, GFR #### [address] [address] .Morphon 04-09-2025 Anisocytosis Ql (Bld) 2+ Normal [facility] Comment on above: Performed By: #### M G, RFP, BMP, GFR #### [address] [address] Microcytosis 1+ Normal [facility] Comment on above: Performed By: #### M G, RFP, BMP, GFR #### [address] [address] Ovalocytes 1+ Normal [facility] Comment on above: Performed By: #### M G, RFP, BMP, GFR #### [place] [address] Platelet Estimate Normal Normal [facility] Comment on above: Performed By: #### M G, RFP, BMP, GFR #### [place] [address] Poik 1+ Normal [facility] Comment on above: Performed By: #### M G, RFP, BMP, GFR #### [place] [address] .NEUABSon 04-09-2025 Neutrophil, Absolute 3.9 10 3/mcL Normal 2.3-8.1 [facility] Comment on above: Performed By: #### M G, RFP, BMP, GFR #### [place] [address] CBCon 04-09-2025 Erythrocyte distribution width (RBC) [Ratio] 25.5 % High 11.5-15.5 [facility] Comment on above: Performed By: #### M G, RFP, BMP, GFR #### [place] [address] Hematocrit (Bld) [Volume fraction] 27.0 % Low 34.0-46.0 [facility] Comment on above: Performed By: #### M G, RFP, BMP, GFR #### [place] [address] Hgb 8.5 G/dL Low 12.0-16.0 [facility] Comment on above: Performed By: #### M G, RFP, BMP, GFR #### [place] [address] MCH (RBC) [Entitic mass] 23.7 pg Low 27.0-33.0 [facility] Comment on above: Performed By: #### M G, RFP, BMP, GFR #### [place] [address] MCHC 31.6 G/dL Low 32.0-36.0 [facility] Comment on above: Performed By: #### M G, RFP, BMP, GFR #### [address] [address] MCV (RBC) [Entitic vol] 75.1 fL Low 80.0-99.0 [facility] Comment on above: Performed By: #### M G, RFP, BMP, GFR #### [address] [address] Platelet 261 10 3/mcL Normal 150-450 [facility] Comment on above: Performed By: #### M G, RFP, BMP, GFR #### [address] [address] Platelet mean volume (Bld) [Entitic vol] 7.3 fL Normal 6.6-10.5 [facility] Comment on above: Performed By: #### M G, RFP, BMP, GFR #### [place] [address] RBC 3.60 10 6/mcL Low 4.10-5.30 [facility] Comment on above: Performed By: #### M G, RFP, BMP, GFR #### [address] [address] WBC 5.7 10 3/mcL Normal 4.5-10.8 [facility] Comment on above: Performed By: #### M G, RFP, BMP, GFR #### [address] [address] RFPon 04-09-2025 Albumin Level 2.6 G/dL Low 3.2-4.8 [facility] Comment on above: Performed By: #### M G, RFP, BMP, GFR #### [address] [address] BUN/Creatinine Ratio 15.0 ratio Normal 10.0-22.0 [facility] Comment on above: Performed By: #### M G, RFP, BMP, GFR #### [address] [address] Calcium [Mass/Vol] 9.3 mg/dL Normal 8.7-10.4 [facility] Comment on above: Performed By: #### M G, RFP, BMP, GFR #### [address] [address] Chloride [Moles/Vol] 95 mmol/L Low 98-110 [facility] Comment on above: Performed By: #### M G, RFP, BMP, GFR #### [address] [address] CO2 [Moles/Vol] 28 mmol/L Normal 22-32 [facility] Comment on above: Performed By: #### M G, RFP, BMP, GFR #### [address] [address] Creatinine [Mass/Vol] 4.07 mg/dL High 0.50-1.20 [facility] Comment on above: Result Comment: Test ing performed on [employer] analyzer using enzymatic creatinine methodology. Performed By: #### M G, RFP, BMP, GFR #### [address] [address] Electrolyte Balance 15.0 mEq/L Normal 4.0-15.0 [facility] Comment on above: Performed By: #### M G, RFP, BMP, GFR #### [address] [address] Glucose [Mass/Vol] 155 mg/dL High 82-115 [facility] Comment on above: Performed By: #### M G, RFP, BMP, GFR #### [address] [address] Phosphate [Mass/Vol] 4.9 mg/dL Normal 2.4-5.1 [facility] Comment on above: Performed By: #### M G, RFP, BMP, GFR #### [address] [address] Potassium [Moles/Vol] 4.5 mmol/L Normal 3.5-5.0 [facility] Comment on above: Performed By: #### M G, RFP, BMP, GFR #### [address] [address] Sodium [Moles/Vol] 138 mmol/L Normal 136-145 [facility] Comment on above: Performed By: #### M G, RFP, BMP, GFR #### [address] [address] Urea nitrogen [Mass/Vol] 61.0 mg/dL High 8.0-22.0 [facility] Comment on above: Performed By: #### M G, RFP, BMP, GFR #### [address] [address] .Auto Diffon 04-06-2025 Basophil, Absolute 0.0 10 3/mcL Normal 0.0-0.3 [facility] Comment on above: Performed By: #### C BC, GFR, MORPH, RFP, DIFF #### [address] [address] Basophils/100 WBC (Bld) 0.8 % Normal 0.0-2.5 [facility] Comment on above: Performed By: #### C BC, GFR, MORPH, RFP, DIFF #### [place] [id number] Eosinophil, Absolute 0.2 10 3/mcL Normal 0.0-0.7 [facility] Comment on above: Performed By: #### C BC, GFR, MORPH, RFP, DIFF #### [address] [address] Eosinophils/100 WBC (Bld) 3.1 % Normal 0.0-6.0 [facility] Comment on above: Performed By: #### C BC, GFR, MORPH, RFP, DIFF #### [address] [address] Lymphocyte, Absolute 0.7 10 3/mcL Low 0.9-4.3 [facility] Comment on above: Performed By: #### C BC, GFR, MORPH, RFP, DIFF #### [address] [address] Lymphocytes/100 WBC (Bld) 13.8 % Low 20.0-40.0 [facility] Comment on above: Performed By: #### C BC, GFR, MORPH, RFP, DIFF #### [address] [address] Monocyte, Absolute 0.7 10 3/mcL Normal 0.1-1.4 [facility] Comment on above: Performed By: #### C BC, GFR, MORPH, RFP, DIFF #### [address] [address] Monocytes/100 WBC (Bld) 14.1 % High 2.0-13.0 [facility] Comment on above: Performed By: #### C BC, GFR, MORPH, RFP, DIFF #### [address] [address] Neutrophils/100 WBC (Bld) 68.2 % Normal 50.0-75.0 [facility] Comment on above: Performed By: #### C BC, GFR, MORPH, RFP, DIFF #### [address] [address] .GFRon 04-06-2025 Estimated Glomerular Filtration Rate 15 ml/min/1.73sqm Normal [facility] Comment on above: Result Comment: [...] C BC, GFR, MORPH, RFP, DIFF #### [address] [address] .Morphon 04-06-2025 Anisocytosis Ql (Bld) 2+ Normal [facility] Comment on above: Performed By: #### C BC, GFR, MORPH, RFP, DIFF #### [address] [address] Microcytosis 2+ Normal [facility] Comment on above: Performed By: #### C BC, GFR, MORPH, RFP, DIFF #### [place] [address] Ovalocytes 1+ Normal [facility] Comment on above: Performed By: #### C BC, GFR, MORPH, RFP, DIFF #### [place] [address] Platelet Estimate Normal Normal [facility] Comment on above: Performed By: #### C BC, GFR, MORPH, RFP, DIFF #### [place] [address] Poik 1+ Normal [facility] Comment on above: Performed By: #### C BC, GFR, MORPH, RFP, DIFF #### [place] [address] Polychrom 1+ Normal [facility] Comment on above: Performed By: #### C BC, GFR, MORPH, RFP, DIFF #### [place] [address] .NEUABSon 04-06-2025 Neutrophil, Absolute 3.6 10 3/mcL Normal 2.3-8.1 [facility] Comment on above: Performed By: #### C BC, GFR, MORPH, RFP, DIFF #### [place] [address] CBCon 04-06-2025 Erythrocyte distribution width (RBC) [Ratio] 26.5 % High 11.5-15.5 [facility] Comment on above: Performed By: #### C BC, GFR, MORPH, RFP, DIFF #### [place] [address] Hematocrit (Bld) [Volume fraction] 25.5 % Low 34.0-46.0 [facility] Comment on above: Performed By: #### C BC, GFR, MORPH, RFP, DIFF #### [place] [address] Hgb 8.0 G/dL Low 12.0-16.0 [facility] Comment on above: Performed By: #### C BC, GFR, MORPH, RFP, DIFF #### [place] [address] MCH (RBC) [Entitic mass] 23.8 pg Low 27.0-33.0 [facility] Comment on above: Performed By: #### C BC, GFR, MORPH, RFP, DIFF #### [place] [address] MCHC 31.3 G/dL Low 32.0-36.0 [facility] Comment on above: Performed By: #### C BC, GFR, MORPH, RFP, DIFF #### [place] [address] MCV (RBC) [Entitic vol] 75.8 fL Low 80.0-99.0 [facility] Comment on above: Performed By: #### C BC, GFR, MORPH, RFP, DIFF #### [place] [address] Platelet 218 10 3/mcL Normal 150-450 [facility] Comment on above: Performed By: #### C BC, GFR, MORPH, RFP, DIFF #### [place] [address] Platelet mean volume (Bld) [Entitic vol] 7.4 fL Normal 6.6-10.5 [facility] Comment on above: Performed By: #### C BC, GFR, MORPH, RFP, DIFF #### [place] [address] RBC 3.36 10 6/mcL Low 4.10-5.30 [facility] Comment on above: Performed By: #### C BC, GFR, MORPH, RFP, DIFF #### [place] [address] WBC 5.3 10 3/mcL Normal 4.5-10.8 [facility] Comment on above: Performed By: #### C BC, GFR, MORPH, RFP, DIFF #### [place] [address] RFPon 04-06-2025 Albumin Level 2.4 G/dL Low 3.2-4.8 [facility] Comment on above: Performed By: #### C BC, GFR, MORPH, RFP, DIFF #### [place] [address] BUN/Creatinine Ratio 12.8 ratio Normal 10.0-22.0 [facility] Comment on above: Performed By: #### C BC, GFR, MORPH, RFP, DIFF #### [address] [address] Calcium [Mass/Vol] 9.1 mg/dL Normal 8.7-10.4 [facility] Comment on above: Performed By: #### C BC, GFR, MORPH, RFP, DIFF #### [address] [address] Chloride [Moles/Vol] 97 mmol/L Low 98-110 [facility] Comment on above: Performed By: #### C BC, GFR, MORPH, RFP, DIFF #### [address] [address] CO2 [Moles/Vol] 27 mmol/L Normal 22-32 [facility] Comment on above: Performed By: #### C BC, GFR, MORPH, RFP, DIFF #### [address] [address] Creatinine [Mass/Vol] 3.04 mg/dL High 0.50-1.20 [facility] Comment on above: Result Comment: Test ing performed on [employer] analyzer using enzymatic creatinine methodology. Performed By: #### C BC, GFR, MORPH, RFP, DIFF #### [address] [address] Electrolyte Balance 13.0 mEq/L Normal 4.0-15.0 [facility] Comment on above: Performed By: #### C BC, GFR, MORPH, RFP, DIFF #### [address] [address] Glucose [Mass/Vol] 140 mg/dL High 82-115 [facility] Comment on above: Performed By: #### C BC, GFR, MORPH, RFP, DIFF #### [address] [address] Phosphate [Mass/Vol] 5.6 mg/dL High 2.4-5.1 [facility] Comment on above: Performed By: #### C BC, GFR, MORPH, RFP, DIFF #### [address], [place] [address] Potassium [Moles/Vol] 4.3 mmol/L Normal 3.5-5.0 [facility] Comment on above: Performed By: #### C BC, GFR, MORPH, RFP, DIFF #### [facility] [address] [place] [address] Sodium [Moles/Vol] 137 mmol/L Normal 136-145 [facility] Comment on above: Performed By: #### C BC, GFR, MORPH, RFP, DIFF #### [facility] [address] [place] [address] Urea nitrogen [Mass/Vol] 39.0 mg/dL High 8.0-22.0 [facility] Comment on above: Performed By: #### C BC, GFR, MORPH, RFP, DIFF #### [address] [address] XR CHEST 1 VIEWon 04-05-2025 XR CHEST [...] 04/05/2025 11:06:53 AM Ordering Provider: YANY SALDANA Normal [facility] .GFRon 04-04-2025 Estimated Glomerular Filtration Rate 14 ml/min/1.73sqm Normal [facility] Comment on above: Result Comment: [...] C BC, GFR, MORPH, RFP, DIFF #### [address] [address] RFPon 04-04-2025 Albumin Level 2.2 G/dL Low 3.2-4.8 [facility] Comment on above: Performed By: #### C BC, GFR, MORPH, RFP, DIFF #### [address] [address] BUN/Creatinine Ratio 16.4 ratio Normal 10.0-22.0 [facility] Comment on above: Performed By: #### C BC, GFR, MORPH, RFP, DIFF #### [address] [address] Calcium [Mass/Vol] 8.8 mg/dL Normal 8.7-10.4 [facility] Comment on above: Performed By: #### C BC, GFR, MORPH, RFP, DIFF #### [address] [address] Chloride [Moles/Vol] 97 mmol/L Low 98-110 [facility] Comment on above: Performed By: #### C BC, GFR, MORPH, RFP, DIFF #### [address] [address] CO2 [Moles/Vol] 26 mmol/L Normal 22-32 [facility] Comment on above: Performed By: #### C BC, GFR, MORPH, RFP, DIFF #### [address] [address] Creatinine [Mass/Vol] 3.24 mg/dL High 0.50-1.20 [facility] Comment on above: Result Comment: Test ing performed on [employer] analyzer using enzymatic creatinine methodology. Performed By: #### C BC, GFR, MORPH, RFP, DIFF #### [address] [address] Electrolyte Balance 14.0 mEq/L Normal 4.0-15.0 [facility] Comment on above: Performed By: #### C BC, GFR, MORPH, RFP, DIFF #### [place] [phone] Glucose [Mass/Vol] 141 mg/dL High 82-115 [facility] Comment on above: Performed By: #### C BC, GFR, MORPH, RFP, DIFF #### [place] [address] Phosphate [Mass/Vol] 6.9 mg/dL High 2.4-5.1 [facility] Comment on above: Performed By: #### C BC, GFR, MORPH, RFP, DIFF #### [place] [address] Potassium [Moles/Vol] 4.9 mmol/L Normal 3.5-5.0 [facility] Comment on above: Performed By: #### C BC, GFR, MORPH, RFP, DIFF #### [place] [address] Sodium [Moles/Vol] 137 mmol/L Normal 136-145 [facility] Comment on above: Performed By: #### C BC, GFR, MORPH, RFP, DIFF #### [address] [address] Urea nitrogen [Mass/Vol] 53.0 mg/dL High 8.0-22.0 [facility] Comment on above: Performed By: #### C BC, GFR, MORPH, RFP, DIFF #### [address] [address] .Auto Diffon 04-02-2025 Basophil, Absolute 0.1 10 3/mcL Normal 0.0-0.3 [facility] Comment on above: Performed By: #### G FR, RFP #### [facility] [address] [place] [address] Basophils/100 WBC (Bld) 1.0 % Normal 0.0-2.5 [facility] Comment on above: Performed By: #### G FR, RFP #### [facility] [address] [place] [address] Eosinophil, Absolute 0.2 10 3/mcL Normal 0.0-0.7 [facility] Comment on above: Performed By: #### G FR, RFP #### [facility] [address] [place] [address] Eosinophils/100 WBC (Bld) 3.8 % Normal 0.0-6.0 [facility] Comment on above: Performed By: #### G FR, RFP #### [address] [address] Lymphocyte, Absolute 0.8 10 3/mcL Low 0.9-4.3 [facility] Comment on above: Performed By: #### G FR, RFP #### [address] [address] Lymphocytes/100 WBC (Bld) 13.5 % Low 20.0-40.0 [facility] Comment on above: Performed By: #### G FR, RFP #### [address] [address] Monocyte, Absolute 0.7 10 3/mcL Normal 0.1-1.4 [facility] Comment on above: Performed By: #### G FR, RFP #### [address] [address] Monocytes/100 WBC (Bld) 11.7 % Normal 2.0-13.0 [facility] Comment on above: Performed By: #### G FR, RFP #### [address] [address] Neutrophils/100 WBC (Bld) 70.0 % Normal 50.0-75.0 [facility] Comment on above: Performed By: #### G FR, RFP #### [address] [address] .GFRon 04-02-2025 Estimated Glomerular Filtration Rate 13 ml/min/1.73sqm [facility] Comment on above: Result Comment: Stages [...] C BC, GFR, MORPH, RFP, DIFF #### [place] [address] .Morphon 04-02-2025 Anisocytosis Ql (Bld) 2+ Normal [facility] Comment on above: Performed By: #### G FR, RFP #### [place] [address] Microcytosis 2+ Normal [facility] Comment on above: Performed By: #### G FR, RFP #### [place] [address] Ovalocytes 1+ [facility] Comment on above: Performed By: #### G FR, RFP #### [place] [address] Platelet Estimate Normal [facility] Comment on above: Performed By: #### G FR, RFP #### [place] [address] Poik 1+ [facility] Comment on above: Performed By: #### G FR, RFP #### [place] [address] .NEUABSon 04-02-2025 Neutrophil, Absolute 4.2 10 3/mcL Normal 2.3-8.1 [facility] Comment on above: Performed By: #### G FR, RFP #### [address] [address] CBCon 04-02-2025 Erythrocyte distribution width (RBC) [Ratio] 27.5 % High 11.5-15.5 [facility] Comment on above: Performed By: #### G FR, RFP #### [place] [phone] Hematocrit (Bld) [Volume fraction] 24.2 % Low 34.0-46.0 [facility] Comment on above: Performed By: #### G FR, RFP #### [place] [address] Hgb 7.8 G/dL Low 12.0-16.0 [facility] Comment on above: Performed By: #### Linda FR, RFP #### [place] [address] MCH (RBC) [Entitic mass] 24.0 pg Low 27.0-33.0 [facility] Comment on above: Performed By: #### Linda FR, RFP #### [place] [address] MCHC 32.0 G/dL Normal 32.0-36.0 [facility] Comment on above: Performed By: #### Linda FR, RFP #### [place] [address] MCV (RBC) [Entitic vol] 74.9 fL Low 80.0-99.0 [facility] Comment on above: Performed By: #### G FR, RFP #### [place] [address] Platelet 242 10 3/mcL Normal 150-450 [facility] Comment on above: Performed By: #### G FR, RFP #### [place] [phone] Platelet mean volume (Bld) [Entitic vol] 7.6 fL Normal 6.6-10.5 [facility] Comment on above: Performed By: #### G FR, RFP #### [place] [phone] RBC 3.23 10 6/mcL Low 4.10-5.30 [facility] Comment on above: Performed By: #### G FR, RFP #### [address] [address] WBC 6.0 10 3/mcL Normal 4.5-10.8 [facility] Comment on above: Performed By: #### G FR, RFP #### [address] [address] RFPon 04-02-2025 Albumin Level 2.4 G/dL Low 3.2-4.8 [facility] Comment on above: Performed By: #### C BC, GFR, MORPH, RFP, DIFF #### [address] [address] BUN/Creatinine Ratio 16.5 ratio Normal 10.0-22.0 [facility] Comment on above: Performed By: #### C BC, GFR, MORPH, RFP, DIFF #### [address] [address] Calcium [Mass/Vol] 8.9 mg/dL Normal 8.7-10.4 [facility] Comment on above: Performed By: #### C BC, GFR, MORPH, RFP, DIFF #### [address] [address] Chloride [Moles/Vol] 98 mmol/L Normal 98-110 [facility] Comment on above: Performed By: #### C BC, GFR, MORPH, RFP, DIFF #### [address] [address] CO2 [Moles/Vol] 25 mmol/L Normal 22-32 [facility] Comment on above: Performed By: #### C BC, GFR, MORPH, RFP, DIFF #### [address] [address] Creatinine [Mass/Vol] 3.52 mg/dL High 0.50-1.20 [facility] Comment on above: Result Comment: Test ing performed on [employer] analyzer using enzymatic creatinine methodology. Performed By: #### C BC, GFR, MORPH, RFP, DIFF #### [address] [address] Electrolyte Balance 14.0 mEq/L Normal 4.0-15.0 [facility] Comment on above: Performed By: #### C BC, GFR, MORPH, RFP, DIFF #### [address] [address] Glucose [Mass/Vol] 105 mg/dL Normal 82-115 [facility] Comment on above: Performed By: #### C BC, GFR, MORPH, RFP, DIFF #### [address] [address] Phosphate [Mass/Vol] 8.0 mg/dL High 2.4-5.1 [facility] Comment on above: Performed By: #### C BC, GFR, MORPH, RFP, DIFF #### [address] [address] Potassium [Moles/Vol] 5.7 mmol/L High 3.5-5.0 [facility] Comment on above: Performed By: #### C BC, GFR, MORPH, RFP, DIFF #### [address] [address] Sodium [Moles/Vol] 137 mmol/L Normal 136-145 [facility] Comment on above: Performed By: #### C BC, GFR, MORPH, RFP, DIFF #### [address] [address] Urea nitrogen [Mass/Vol] 58.0 mg/dL High 8.0-22.0 [facility] Comment on above: Performed By: #### C BC, GFR, MORPH, RFP, DIFF #### [address] [address] .Auto Diffon 03-30-2025 Basophil, Absolute 0.1 10 3/mcL Normal 0.0-0.3 [facility] Comment on above: Performed By: #### M G, RFP, BMP, GFR #### [address] [address] Basophils/100 WBC (Bld) 1.1 % Normal 0.0-2.5 [facility] Comment on above: Performed By: #### M G, RFP, BMP, GFR #### [address] [address] Eosinophil, Absolute 0.2 10 3/mcL Normal 0.0-0.7 [facility] Comment on above: Performed By: #### M G, RFP, BMP, GFR #### [facility] [address] [place] [address] Eosinophils/100 WBC (Bld) 3.2 % Normal 0.0-6.0 [facility] Comment on above: Performed By: #### M G, RFP, BMP, GFR #### [facility] [address] [place] [address] Lymphocyte, Absolute 0.7 10 3/mcL Low 0.9-4.3 [facility] Comment on above: Performed By: #### Iain G, RFP, BMP, GFR #### [address] [address] Lymphocytes/100 WBC (Bld) 14.1 % Low 20.0-40.0 [facility] Comment on above: Performed By: #### Iain G, RFP, BMP, GFR #### [address] [address] Monocyte, Absolute 0.7 10 3/mcL Normal 0.1-1.4 [facility] Comment on above: Performed By: #### M G, RFP, BMP, GFR #### [address] [address] Monocytes/100 WBC (Bld) 12.8 % Normal 2.0-13.0 [facility] Comment on above: Performed By: #### M G, RFP, BMP, GFR #### [address] [address] Neutrophils/100 WBC (Bld) 68.8 % Normal 50.0-75.0 [facility] Comment on above: Performed By: #### M G, RFP, BMP, GFR #### [address] [address] .GFRon 03-30-2025 Estimated Glomerular Filtration Rate 16 ml/min/1.73sqm Normal [facility] Comment on above: Result Comment: [...] #### M G, RFP, BMP, GFR #### [place] [address] .Morphon 03-30-2025 Anisocytosis Ql (Bld) 2+ Normal [facility] Comment on above: Performed By: #### M G, RFP, BMP, GFR #### [place] [address] Hypochrom 1+ Normal [facility] Comment on above: Performed By: #### M G, RFP, BMP, GFR #### [place] [address] Microcytosis 2+ Normal [facility] Comment on above: Performed By: #### M G, RFP, BMP, GFR #### [place] [address] Ovalocytes 1+ [facility]IN Comment on above: Performed By: #### M G, RFP, BMP, GFR #### [place] [address] Platelet Estimate Normal [facility]IN Comment on above: Performed By: #### M G, RFP, BMP, GFR #### [place] [address] Poik 1+ [facility]IN Comment on above: Performed By: #### M G, RFP, BMP, GFR #### [place] [address] .NEUABSon 03-30-2025 Neutrophil, Absolute 3.6 10 3/mcL Normal 2.3-8.1 [facility] Comment on above: Performed By: #### M G, RFP, BMP, GFR #### [place] [address] CBCon 03-30-2025 Erythrocyte distribution width (RBC) [Ratio] 27.7 % High 11.5-15.5 [facility] Comment on above: Performed By: #### M G, RFP, BMP, GFR #### [place] [address] Hematocrit (Bld) [Volume fraction] 24.9 % Low 34.0-46.0 [facility] Comment on above: Performed By: #### M G, RFP, BMP, GFR #### [place] [address] Hgb 7.8 G/dL Low 12.0-16.0 [facility] Comment on above: Performed By: #### M G, RFP, BMP, GFR #### [place] [address] MCH (RBC) [Entitic mass] 23.4 pg Low 27.0-33.0 [facility] Comment on above: Performed By: #### M G, RFP, BMP, GFR #### [place] [address] MCHC 31.3 G/dL Low 32.0-36.0 [facility] Comment on above: Performed By: #### M G, RFP, BMP, GFR #### [place] [address] MCV (RBC) [Entitic vol] 74.8 fL Low 80.0-99.0 [facility] Comment on above: Performed By: #### M G, RFP, BMP, GFR #### [place] [address] Platelet 231 10 3/mcL Normal 150-450 [facility] Comment on above: Performed By: #### M G, RFP, BMP, GFR #### [place] [address] Platelet mean volume (Bld) [Entitic vol] 7.7 fL Normal 6.6-10.5 [facility] Comment on above: Performed By: #### M G, RFP, BMP, GFR #### [address] [address] RBC 3.33 10 6/mcL Low 4.10-5.30 [facility] Comment on above: Performed By: #### M G, RFP, BMP, GFR #### [address] [address] WBC 5.2 10 3/mcL Normal 4.5-10.8 [facility] Comment on above: Performed By: #### M G, RFP, BMP, GFR #### [address] [address] RFPon 03-30-2025 Albumin Level 2.1 G/dL Low 3.2-4.8 [facility] Comment on above: Performed By: #### M G, RFP, BMP, GFR #### [address] [address] BUN/Creatinine Ratio 15.6 ratio Normal 10.0-22.0 [facility] Comment on above: Performed By: #### M G, RFP, BMP, GFR #### [address] [address] Calcium [Mass/Vol] 9.0 mg/dL Normal 8.7-10.4 [facility] Comment on above: Performed By: #### M G, RFP, BMP, GFR #### [address] [address] Chloride [Moles/Vol] 96 mmol/L Low 98-110 [facility] Comment on above: Performed By: #### M G, RFP, BMP, GFR #### [address] [address] CO2 [Moles/Vol] 27 mmol/L Normal 22-32 [facility] Comment on above: Performed By: #### M G, RFP, BMP, GFR #### [address] [address] Creatinine [Mass/Vol] 2.94 mg/dL High 0.50-1.20 [facility] Comment on above: Result Comment: Test ing performed on [employer] analyzer using enzymatic creatinine methodology. Performed By: #### M G, RFP, BMP, GFR #### [address] [address] Electrolyte Balance 14.0 mEq/L Normal 4.0-15.0 [facility] Comment on above: Performed By: #### M G, RFP, BMP, GFR #### [address] [address] Glucose [Mass/Vol] 173 mg/dL High 82-115 [facility] Comment on above: Performed By: #### M G, RFP, BMP, GFR #### [address] [address] Phosphate [Mass/Vol] 7.5 mg/dL High 2.4-5.1 [facility] Comment on above: Performed By: #### M G, RFP, BMP, GFR #### [address] [address] Potassium [Moles/Vol] 4.6 mmol/L Normal 3.5-5.0 [facility] Comment on above: Performed By: #### M G, RFP, BMP, GFR #### [address] [address] Sodium [Moles/Vol] 137 mmol/L Normal 136-145 [facility] Comment on above: Performed By: #### M G, RFP, BMP, GFR #### [address] [address] Urea nitrogen [Mass/Vol] 46.0 mg/dL High 8.0-22.0 [facility] Comment on above: Performed By: #### M G, RFP, BMP, GFR #### [address] [address] .GFRon 03-28-2025 Estimated Glomerular Filtration Rate 15 ml/min/1.73sqm Normal [facility] Comment on above: Result Comment: [...] C BC, GFR, MORPH, RFP, DIFF #### [address] [address] RFPon 03-28-2025 Albumin Level 2.2 G/dL Low 3.2-4.8 [facility] Comment on above: Performed By: #### G FR, RFP #### [address] [address] BUN/Creatinine Ratio 17.8 ratio Normal 10.0-22.0 [facility] Comment on above: Performed By: #### G FR, RFP #### [address] [address] Calcium [Mass/Vol] 8.7 mg/dL Normal 8.7-10.4 [facility] Comment on above: Performed By: #### G FR, RFP #### [address] [address] Chloride [Moles/Vol] 96 mmol/L Low 98-110 [facility] Comment on above: Performed By: #### G FR, RFP #### [address] [address] CO2 [Moles/Vol] 29 mmol/L Normal 22-32 [facility] Comment on above: Performed By: #### G FR, RFP #### [address] [address] Creatinine [Mass/Vol] 3.09 mg/dL High 0.50-1.20 [facility] Comment on above: Result Comment: Test ing performed on [employer] analyzer using enzymatic creatinine methodology. Performed By: #### G FR, RFP #### [address] [address] Electrolyte Balance 10.0 mEq/L Normal 4.0-15.0 [facility] Comment on above: Performed By: #### G FR, RFP #### [facility] [address] [place] [address] Glucose [Mass/Vol] 129 mg/dL High 82-115 [facility] Comment on above: Performed By: #### G FR, RFP #### [facility] [address] [place] [address] Phosphate [Mass/Vol] 7.8 mg/dL High 2.4-5.1 [facility] Comment on above: Performed By: #### G FR, RFP #### [facility] [address] [place] [address] Potassium [Moles/Vol] 4.9 mmol/L Normal 3.5-5.0 [facility] Comment on above: Performed By: #### G FR, RFP #### [address] [address] Sodium [Moles/Vol] 135 mmol/L Low 136-145 [facility] Comment on above: Performed By: #### G FR, RFP #### [address] [address] Urea nitrogen [Mass/Vol] 55.0 mg/dL High 8.0-22.0 [facility] Comment on above: Performed By: #### G FR, RFP #### [address] [address] .GFRon 03-27-2025 Estimated Glomerular Filtration Rate 21 ml/min/1.73sqm Normal [facility] Comment on above: Result Comment: [...] #### M G, RFP, BMP, GFR #### [place] [id number] CMPon 03-27-2025 Albumin Level 2.2 G/dL Low 3.2-4.8 [facility] Comment on above: Performed By: #### M G, RFP, BMP, GFR #### [place] [address] Albumin/Globulin [Mass ratio] 0.6 {ratio} Low 0.9-1.6 [facility] Comment on above: Performed By: #### M G, RFP, BMP, GFR #### [place] [address] ALP [Catalytic activity/Vol] 208 U/L High 38-126 [facility] Comment on above: Performed By: #### M G, RFP, BMP, GFR #### [place] [address] ALT [Catalytic activity/Vol] 14 U/L Normal 10-49 [facility] Comment on above: Performed By: #### M G, RFP, BMP, GFR #### [place] [address] AST [Catalytic activity/Vol] 19 U/L Normal 8-34 [facility] Comment on above: Performed By: #### M G, RFP, BMP, GFR #### [place] [address] Bili Total 0.30 mg/dL Normal 0.20-1.20 [facility] Comment on above: Result Comment: Use of this assay is not recommended for patients undergoing treatment with eltrombopag due to the potential for falsely elevated results. Performed By: #### M G, RFP, BMP, GFR #### [place] [address] BUN/Creatinine Ratio 19.6 ratio Normal 10.0-22.0 [facility] Comment on above: Performed By: #### M G, RFP, BMP, GFR #### [place] [address] Calcium [Mass/Vol] 8.4 mg/dL Low 8.7-10.4 [facility] Comment on above: Performed By: #### M G, RFP, BMP, GFR #### [address] [address] Chloride [Moles/Vol] 97 mmol/L Low 98-110 [facility] Comment on above: Performed By: #### M G, RFP, BMP, GFR #### [address] [address] CO2 [Moles/Vol] 30 mmol/L Normal 22-32 [facility] Comment on above: Performed By: #### M G, RFP, BMP, GFR #### [address] [address] Creatinine [Mass/Vol] 2.35 mg/dL High 0.50-1.20 [facility] Comment on above: Result Comment: Test ing performed on [employer] analyzer using enzymatic creatinine methodology. Performed By: #### M G, RFP, BMP, GFR #### [place] [id number] Electrolyte Balance 8.0 mEq/L Normal 4.0-15.0 [facility] Comment on above: Performed By: #### M G, RFP, BMP, GFR #### [address] [address] Globulin 3.7 G/dL Normal 2.5-4.2 [facility] Comment on above: Performed By: #### M G, RFP, BMP, GFR #### [address] [address] Glucose [Mass/Vol] 170 mg/dL High 82-115 [facility] Comment on above: Performed By: #### M G, RFP, BMP, GFR #### [address] [address] Potassium [Moles/Vol] 4.8 mmol/L Normal 3.5-5.0 [facility] Comment on above: Performed By: #### M G, RFP, BMP, GFR #### [place] [id number] Sodium [Moles/Vol] 135 mmol/L Low 136-145 [facility] Comment on above: Performed By: #### M G, RFP, BMP, GFR #### [address] [id number] Total Protein 5.9 G/dL Normal 5.7-8.2 [facility] Comment on above: Performed By: #### M G, RFP, BMP, GFR #### [address] [address] Urea nitrogen [Mass/Vol] 46.0 mg/dL High 8.0-22.0 [facility] Comment on above: Performed By: #### M G, RFP, BMP, GFR #### [place] [id number] MGon 03-27-2025 Magnesium [Mass/Vol] 2.4 mg/dL Normal 1.6-2.4 [facility] Comment on above: Performed By: #### M G, RFP, BMP, GFR #### [address] [id number] .GFRon 03-26-2025 Estimated Glomerular Filtration Rate 14 ml/min/1.73sqm Normal [facility] Comment on above: Result Comment: [...] C BC, GFR, MORPH, RFP, DIFF #### [address] [id number] .Manual Diffon 03-26-2025 Bands 2.0 % Normal 0.0-5.0 [facility] Comment on above: Performed By: #### C BC, GFR, MORPH, RFP, DIFF #### [address] [address] Basophil %, Manual 1.0 % Normal 0.0-2.5 [facility] Comment on above: Performed By: #### C BC, GFR, MORPH, RFP, DIFF #### [address] [address] Basophil, Abs Manual 0.1 10 3/mcL Normal 0.0-0.3 [facility] MAIN Comment on above: Performed By: #### C BC, GFR, MORPH, RFP, DIFF #### [address] [address] Eosinophil %, Manual 2.0 % Normal 0.0-6.0 [facility] MAIN Comment on above: Performed By: #### C BC, GFR, MORPH, RFP, DIFF #### [address] [address] Eosinophil, Abs Manual 0.2 10 3/mcL Normal 0.0-0.7 [facility] MAIN Comment on above: Performed By: #### C BC, GFR, MORPH, RFP, DIFF #### [address] [address] Lymphocyte %, Manual 9.0 % Low 20.0-40.0 [facility] MAIN Comment on above: Performed By: #### C BC, GFR, MORPH, RFP, DIFF #### [address] [address] Lymphocyte, Abs Manual 0.9 10 3/mcL Normal 0.9-4.3 [facility] MAIN Comment on above: Performed By: #### C BC, GFR, MORPH, RFP, DIFF #### [address] [address] Monocyte %, Manual 11.0 % Normal 2.0-13.0 [facility] MAIN Comment on above: Performed By: #### C BC, GFR, MORPH, RFP, DIFF #### [address] [address] Monocyte, Abs Manual 1.1 10 3/mcL Normal 0.1-1.4 [facility] MAIN Comment on above: Performed By: #### C BC, GFR, MORPH, RFP, DIFF #### [place] [address] Neutrophil %, Manual 75.0 % Normal 50.0-75.0 [facility] MAIN Comment on above: Performed By: #### C BC, GFR, MORPH, RFP, DIFF #### [place] [address] Neutrophil, Abs Manual 7.8 10 3/mcL Normal 2.3-8.1 [facility] MAIN Comment on above: Performed By: #### C BC, GFR, MORPH, RFP, DIFF #### [place] [address] Nucleated RBC 0.0 /100 WBC Normal [facility] MAIN Comment on above: Performed By: #### C BC, GFR, MORPH, RFP, DIFF #### [place] [address] .Morphon 03-26-2025 Anisocytosis Ql (Bld) 2+ Normal [facility] MAIN Comment on above: Performed By: #### C BC, GFR, MORPH, RFP, DIFF #### [place] [address] Microcytosis 2+ Normal [facility] MAIN Comment on above: Performed By: #### C BC, GFR, MORPH, RFP, DIFF #### [place] [address] Ovalocytes 1+ Normal [facility] MAIN Comment on above: Performed By: #### C BC, GFR, MORPH, RFP, DIFF #### [place] [address] Platelet Clumps Few Normal [facility] MAIN Comment on above: Performed By: #### C BC, GFR, MORPH, RFP, DIFF #### [place] [address] Platelet Estimate Normal [facility] MAIN Comment on above: Performed By: #### C BC, GFR, MORPH, RFP, DIFF #### [place] [address] CBCon 03-26-2025 Platelet 194 10 3/mcL Normal 150-450 [facility] MAIN Comment on above: Performed By: #### C BC, GFR, MORPH, RFP, DIFF #### [place] [address] Platelet mean volume (Bld) [Entitic vol] 8.1 fL Normal 6.6-10.5 [facility] MAIN Comment on above: Performed By: #### C BC, GFR, MORPH, RFP, DIFF #### [place] [address] WBC 10.1 10 3/mcL Normal 4.5-10.8 [facility] MAIN Comment on above: Performed By: #### C BC, GFR, MORPH, RFP, DIFF #### [place] [address] Erythrocyte distribution width (RBC) [Ratio] 27.8 % High 11.5-15.5 [facility] MAIN Comment on above: Performed By: #### C BC, GFR, MORPH, RFP, DIFF #### [place] [address] Hematocrit (Bld) [Volume fraction] 24.0 % Low 34.0-46.0 [facility] MAIN Comment on above: Performed By: #### C BC, GFR, MORPH, RFP, DIFF #### [place] [address] Hgb 8.0 G/dL Low 12.0-16.0 [facility] MAIN Comment on above: Performed By: #### C BC, GFR, MORPH, RFP, DIFF #### [place] [address] MCH (RBC) [Entitic mass] 24.2 pg Low 27.0-33.0 [facility] MAIN Comment on above: Performed By: #### C BC, GFR, MORPH, RFP, DIFF #### [place] [address] MCHC 33.1 G/dL Normal 32.0-36.0 [facility] MAIN Comment on above: Performed By: #### C BC, GFR, MORPH, RFP, DIFF #### [place] [address] MCV (RBC) [Entitic vol] 73.0 fL Low 80.0-99.0 [facility] MAIN Comment on above: Performed By: #### C BC, GFR, MORPH, RFP, DIFF #### [address] [address] RBC 3.29 10 6/mcL Low 4.10-5.30 [facility] MAIN Comment on above: Performed By: #### C BC, GFR, MORPH, RFP, DIFF #### [place] [phone] RFPon 03-26-2025 Albumin Level 2.4 G/dL Low 3.2-4.8 [facility] MAIN Comment on above: Performed By: #### C BC, GFR, MORPH, RFP, DIFF #### [place] [address] BUN/Creatinine Ratio 19.9 ratio Normal 10.0-22.0 [facility] MAIN Comment on above: Performed By: #### C BC, GFR, MORPH, RFP, DIFF #### [place] [phone] Calcium [Mass/Vol] 8.8 mg/dL Normal 8.7-10.4 [facility] MAIN Comment on above: Performed By: #### C BC, GFR, MORPH, RFP, DIFF #### [address] [address] Chloride [Moles/Vol] 94 mmol/L Low 98-110 [facility] MAIN Comment on above: Performed By: #### C BC, GFR, MORPH, RFP, DIFF #### [address] [address] CO2 [Moles/Vol] 23 mmol/L Normal 22-32 [facility] MAIN Comment on above: Performed By: #### C BC, GFR, MORPH, RFP, DIFF #### [place] [phone] Creatinine [Mass/Vol] 3.32 mg/dL High 0.50-1.20 [facility] MAIN Comment on above: Result Comment: Test ing performed on [employer] analyzer using enzymatic creatinine methodology. Performed By: #### C BC, GFR, MORPH, RFP, DIFF #### [address] [address] Electrolyte Balance 15.0 mEq/L Normal 4.0-15.0 [facility] MAIN Comment on above: Performed By: #### C BC, GFR, MORPH, RFP, DIFF #### [address] [address] Glucose [Mass/Vol] 190 mg/dL High 82-115 [facility] MAIN Comment on above: Performed By: #### C BC, GFR, MORPH, RFP, DIFF #### [address] [address] Phosphate [Mass/Vol] 8.7 mg/dL High 2.4-5.1 [facility] MAIN Comment on above: Performed By: #### C BC, GFR, MORPH, RFP, DIFF #### [address] [address] Potassium [Moles/Vol] 5.5 mmol/L High 3.5-5.0 [facility] MAIN Comment on above: Performed By: #### C BC, GFR, MORPH, RFP, DIFF #### [address] [address] Sodium [Moles/Vol] 132 mmol/L Low 136-145 [facility] MAIN Comment on above: Performed By: #### C BC, GFR, MORPH, RFP, DIFF #### [address] [address] Urea nitrogen [Mass/Vol] 66.0 mg/dL High 8.0-22.0 [facility] MAIN Comment on above: Performed By: #### C BC, GFR, MORPH, RFP, DIFF #### [address] [address] XR CHEST 1 VIEWon 03-26-2025 XR CHEST [...] 03/26/2025 12:00:03 PM Ordering Provider: BISHNU SALAMANCA [facility] MAIN .GFRon 03-25-2025 Estimated Glomerular Filtration Rate 17 ml/min/1.73sqm [facility] MAIN Comment on above: Result Comment: Stages [...] Performed By: #### G , RFP #### [address] [address] [facility] BUN/Creatinine Ratio 21.8 ratio Normal 10.0-22.0 [facility] MAIN Comment on above: Performed By: #### G , RFP #### [address] [address] Calcium [Mass/Vol] 8.4 mg/dL Low 8.7-10.4 [facility] MAIN Comment on above: Performed By: #### G FR, RFP #### [address] [address] Chloride [Moles/Vol] 96 mmol/L Low 98-110 [facility] MAIN Comment on above: Performed By: #### G FR, RFP #### [address] [address] CO2 [Moles/Vol] 27 mmol/L Normal 22-32 [facility] MAIN Comment on above: Performed By: #### G FR, RFP #### [address] [address] Creatinine [Mass/Vol] 2.85 mg/dL High 0.50-1.20 [facility] MAIN Comment on above: Result Comment: Test ing performed on [employer] analyzer using enzymatic creatinine methodology. Performed By: #### G FR, RFP #### [address] [address] Electrolyte Balance 8.0 mEq/L Normal 4.0-15.0 [facility] MAIN Comment on above: Performed By: #### G FR, RFP #### [address] [address] Glucose [Mass/Vol] 203 mg/dL High 82-115 [facility] MAIN Comment on above: Performed By: #### G FR, RFP #### [address] [address] Potassium [Moles/Vol] 4.8 mmol/L Normal 3.5-5.0 [facility] MAIN Comment on above: Performed By: #### G FR, RFP #### [address] [address] Sodium [Moles/Vol] 131 mmol/L Low 136-145 [facility] MAIN Comment on above: Performed By: #### G FR, RFP #### [address] [address] Urea nitrogen [Mass/Vol] 62.0 mg/dL High 8.0-22.0 [facility] MAIN Comment on above: Performed By: #### G FR, RFP #### [address] [address] .Auto Diffon 03-23-2025 Basophil, Absolute 0.1 10 3/mcL Normal 0.0-0.3 [facility] MAIN Comment on above: Performed By: #### M G, RFP, BMP, GFR #### [facility] [address] [place] [address] Basophils/100 WBC (Bld) 1.1 % Normal 0.0-2.5 [facility] MAIN Comment on above: Performed By: #### M G, RFP, BMP, GFR #### [address] [address] Eosinophil, Absolute 0.1 10 3/mcL Normal 0.0-0.7 [facility] MAIN Comment on above: Performed By: #### M G, RFP, BMP, GFR #### [address] [address] Eosinophils/100 WBC (Bld) 2.0 % Normal 0.0-6.0 [facility] MAIN Comment on above: Performed By: #### M G, RFP, BMP, GFR #### [address] [address] Lymphocyte, Absolute 0.9 10 3/mcL Normal 0.9-4.3 [facility] MAIN Comment on above: Performed By: #### M G, RFP, BMP, GFR #### [address] [address] Lymphocytes/100 WBC (Bld) 14.1 % Low 20.0-40.0 [facility] MAIN Comment on above: Performed By: #### M G, RFP, BMP, GFR #### [address] [address] Monocyte, Absolute 0.5 10 3/mcL Normal 0.1-1.4 [facility] MAIN Comment on above: Performed By: #### M G, RFP, BMP, GFR #### [address] [address] Monocytes/100 WBC (Bld) 8.0 % Normal 2.0-13.0 [facility] MAIN Comment on above: Performed By: #### M G, RFP, BMP, GFR #### [address] [address] Neutrophils/100 WBC (Bld) 74.8 % Normal 50.0-75.0 [facility] MAIN Comment on above: Performed By: #### M G, RFP, BMP, GFR #### [address] [address] .GFRon 03-23-2025 Estimated Glomerular Filtration Rate 16 ml/min/1.73sqm Normal [facility] MAIN Comment on above: Result Comment: [...] #### M G, RFP, BMP, GFR #### [address] [address] .NEUABSon 03-23-2025 Neutrophil, Absolute 4.6 10 3/mcL Normal 2.3-8.1 [facility] MAIN Comment on above: Performed By: #### M G, RFP, BMP, GFR #### [address] [address] BFPRon 03-23-2025 Body Fluid Path Review Normal [facility] MAIN Comment on above: Order Comment: Added [...] C BC, GFR, MORPH, RFP, DIFF #### [address] [address] CBCon 03-23-2025 Erythrocyte distribution width (RBC) [Ratio] 27.5 % High 11.5-15.5 [facility] MAIN Comment on above: Performed By: #### M G, RFP, BMP, GFR #### [place] [address] Hematocrit (Bld) [Volume fraction] 25.6 % Low 34.0-46.0 [facility] MAIN Comment on above: Performed By: #### M G, RFP, BMP, GFR #### [place] [address] Hgb 8.1 G/dL Low 12.0-16.0 [facility] MAIN Comment on above: Performed By: #### M G, RFP, BMP, GFR #### [place] [address] MCH (RBC) [Entitic mass] 23.0 pg Low 27.0-33.0 [facility] MAIN Comment on above: Performed By: #### M G, RFP, BMP, GFR #### [place] [address] MCHC 31.7 G/dL Low 32.0-36.0 [facility] MAIN Comment on above: Performed By: #### M G, RFP, BMP, GFR #### [place] [address] MCV (RBC) [Entitic vol] 72.5 fL Low 80.0-99.0 [facility] MAIN Comment on above: Performed By: #### M G, RFP, BMP, GFR #### [place] [address] Platelet 226 10 3/mcL Normal 150-450 [facility] MAIN Comment on above: Performed By: #### M G, RFP, BMP, GFR #### [place] [phone] Platelet mean volume (Bld) [Entitic vol] 8.1 fL Normal 6.6-10.5 [facility] MAIN Comment on above: Performed By: #### M G, RFP, BMP, GFR #### [place] [address] RBC 3.54 10 6/mcL Low 4.10-5.30 [facility] MAIN Comment on above: Performed By: #### M G, RFP, BMP, GFR #### [place] [address] WBC 6.1 10 3/mcL Normal 4.5-10.8 [facility] MAIN Comment on above: Performed By: #### M G, RFP, BMP, GFR #### [place] [address] Non-Adoption Social Worker Cytology Reporton Non-Adoption Social Worker Cytology Report . Pathology Reports Accession: Collected Date/Time: Received Date/Time: Pathologist: [id number] 03/22/2025 09:55 EDT 03/22/2025 14:12 EDT CHRISTIANO LIU MD Non-Adoption Social Worker Cytology Report CLINICAL INFORMATION: effusion DIAGNOSTIC CATEGORY: NEGATIVE FOR MALIGNANCY. SPECIMEN: Left pleural fluid GROSS DESCRIPTION: # of Blocks: 1 # of Monolayers: 1 Volume (ml) 600 Color: fresh cloudy orange Verified by Pathology Report verified by [facility] Screened by: HARJIT [place] Electronically signed by CHRISTIANO LIU Sign-Out Date: 03/23/2025 10:21 Performing Lab: [address] Pathology Dept Disclaimer If ancillary studies were utilized, the following Laboratory Developed Test (LDT) disclaimer will apply: Under CLIA requirements, [facility] is qualified to perform high complexity testing. For all ancillary stains, positive and negative controls stain appropriately. Performance characteristics of immunohistochemical and chromogenic in-situ hybridization tests have been determined by [facility]. These tests are used for clinical purposes, They should not be regarded as investigational or for research. Normal [facility] MAIN RFPon 03-23-2025 Albumin Level 2.1 G/dL Low 3.2-4.8 [facility] MAIN Comment on above: Performed By: #### M G, RFP, BMP, GFR #### [place] [address] BUN/Creatinine Ratio 22.8 ratio High 10.0-22.0 [facility] MAIN Comment on above: Performed By: #### M G, RFP, BMP, GFR #### [address] [address] Calcium [Mass/Vol] 8.4 mg/dL Low 8.7-10.4 [facility] MAIN Comment on above: Performed By: #### M G, RFP, BMP, GFR #### [address] [address] Chloride [Moles/Vol] 96 mmol/L Low 98-110 [facility] MAIN Comment on above: Performed By: #### M G, RFP, BMP, GFR #### [address] [address] CO2 [Moles/Vol] 24 mmol/L Normal 22-32 [facility] MAIN Comment on above: Performed By: #### M G, RFP, BMP, GFR #### [address] [address] Creatinine [Mass/Vol] 2.89 mg/dL High 0.50-1.20 [facility] MAIN Comment on above: Result Comment: Test ing performed on [employer] analyzer using enzymatic creatinine methodology. Performed By: #### M G, RFP, BMP, GFR #### [address] [address] Electrolyte Balance 9.0 mEq/L Normal 4.0-15.0 [facility] MAIN Comment on above: Performed By: #### M G, RFP, BMP, GFR #### [address] [address] Glucose [Mass/Vol] 146 mg/dL High 82-115 [facility] MAIN Comment on above: Performed By: #### M G, RFP, BMP, GFR #### [address] [address] Phosphate [Mass/Vol] 7.4 mg/dL High 2.4-5.1 [facility] MAIN Comment on above: Performed By: #### M G, RFP, BMP, GFR #### [address] [address] Potassium [Moles/Vol] 4.7 mmol/L Normal 3.5-5.0 [facility] MAIN Comment on above: Performed By: #### M G, RFP, BMP, GFR #### [address] [address] Sodium [Moles/Vol] 129 mmol/L Low 136-145 [facility] MAIN Comment on above: Performed By: #### M G, RFP, BMP, GFR #### [address] [address] Urea nitrogen [Mass/Vol] 66.0 mg/dL High 8.0-22.0 [facility] MAIN Comment on above: Performed By: #### M G, RFP, BMP, GFR #### [address] [address] BFCTon 03-22-2025 Cells Counted BF 100 [facility] MAIN Comment on above: Performed By: #### C BC, GFR, MORPH, RFP, DIFF #### [address] [address] Lymphocytes/100 WBC (Bld) 31 % [facility] MAIN Comment on above: Performed By: #### C BC, GFR, MORPH, RFP, DIFF #### [address] [address] Mesothelial Cell % BF 34 % Normal [facility] MAIN Comment on above: Performed By: #### C BC, GFR, MORPH, RFP, DIFF #### [address] [address] Mononuclear cell % BF 5 % Normal [facility] MAIN Comment on above: Performed By: #### C BC, GFR, MORPH, RFP, DIFF #### [place] [phone] Neutrophils/100 WBC (Bld) 30 % [facility] MAIN Comment on above: Performed By: #### C BC, GFR, MORPH, RFP, DIFF #### [address] [address] Body Fluid Source Pleural fluid [facility] MAIN Comment on above: Result Comment: Refe rence ranges have not been established for this body fluid. The test results must be integrated into the clinical context for interpretation. Performed By: #### C BC, GFR, MORPH, RFP, DIFF #### [place] [address] Total Nucleated Cells 820 /mm3 Normal [facility] MAIN Comment on above: Performed By: #### C BC, GFR, MORPH, RFP, DIFF #### [place] [address] GLUBFon 03-22-2025 Glucose BF 113.0 mg/dL Normal [facility] MAIN Comment on above: Performed By: #### C BC, GFR, MORPH, RFP, DIFF #### [place] [address] Glucose Body Fluid Spec Type Pleural fluid Normal [facility] MAIN Comment on above: Result Comment: The reference interval(s) and other method performance specifications have not been established for this body fluid. The test result must be integrated into the clinical content for interpretation. Performed By: #### C BC, GFR, MORPH, RFP, DIFF #### [place] [address] LDBF 03-22-2025 LDH BF 71.0 U/L Normal [facility] MAIN Comment on above: Performed By: #### C BC, GFR, MORPH, RFP, DIFF #### [place] [address] LDH Body Fluid Spec Type Pleural fluid Normal [facility] MAIN Comment on above: Result Comment: The reference interval(s) and other method performance specifications have not been established for this body fluid. The test result must be integrated into the clinical content for interpretation. . Performed By: #### C BC, GFR, MORPH, RFP, DIFF #### [place] [address] PHBFon 03-22-2025 pH BF 7.4 Normal [facility] MAIN Comment on above: Performed By: #### G FR, RFP #### [place] [address] pH BF Spec Type Pleural fluid Normal [facility] MAIN Comment on above: Result Comment: LEFT The reference interval(s) and other method performance specifications have not been established for this body fluid. The test result must be integrated into the clinical content for interpretation. Performed By: #### G FR, RFP #### [address] [address] PROBFon 03-22-2025 Protein BF <2.0 [facility] MAIN Comment on above: Performed By: #### C BC, GFR, MORPH, RFP, DIFF #### [address] [address] Protein BF Type Pleural fluid [facility] MAIN Comment on above: Result Comment: The reference interval(s) and other method performance specifications have not been established for this body fluid. The test result must be integrated into the clinical content for interpretation. Performed By: #### C BC, GFR, MORPH, RFP, DIFF #### [address] [address] XR CHEST 1 VIEWon 03-22-2025 XR CHEST [...] 03/22/2025 10:22:24 AM Ordering Provider: CHA YUSUF [facility] MAIN .GFRon 03-21-2025 Estimated Glomerular Filtration Rate 15 ml/min/1.73sqm [facility] MAIN Comment on above: Result Comment: Stages [...] #### M G, RFP, BMP, GFR #### [address] [address] RFPon 03-21-2025 Albumin Level 2.1 G/dL Low 3.2-4.8 [facility] MAIN Comment on above: Performed By: #### M G, RFP, BMP, GFR #### [address] [address] BUN/Creatinine Ratio 26.9 ratio High 10.0-22.0 [facility] MAIN Comment on above: Performed By: #### M G, RFP, BMP, GFR #### [address] [address] Calcium [Mass/Vol] 8.2 mg/dL Low 8.7-10.4 [facility] MAIN Comment on above: Performed By: #### M G, RFP, BMP, GFR #### [address] [address] Chloride [Moles/Vol] 92 mmol/L Low 98-110 [facility] MAIN Comment on above: Performed By: #### M G, RFP, BMP, GFR #### [address] [address] CO2 [Moles/Vol] 21 mmol/L Low 22-32 [facility] MAIN Comment on above: Performed By: #### M G, RFP, BMP, GFR #### [address] [address] Creatinine [Mass/Vol] 3.08 mg/dL High 0.50-1.20 [facility] MAIN Comment on above: Result Comment: Test ing performed on [employer] analyzer using enzymatic creatinine methodology. Performed By: #### M G, RFP, BMP, GFR #### [address] [address] Electrolyte Balance 17.0 mEq/L High 4.0-15.0 [facility] MAIN Comment on above: Performed By: #### M G, RFP, BMP, GFR #### [address] [address] Glucose [Mass/Vol] 201 mg/dL High 82-115 [facility] MAIN Comment on above: Performed By: #### M G, RFP, BMP, GFR #### [address] [address] Phosphate [Mass/Vol] 6.9 mg/dL High 2.4-5.1 [facility] MAIN Comment on above: Performed By: #### M G, RFP, BMP, GFR #### [address] [address] Potassium [Moles/Vol] 5.0 mmol/L Normal 3.5-5.0 [facility] MAIN Comment on above: Performed By: #### M G, RFP, BMP, GFR #### [address] [address] Sodium [Moles/Vol] 130 mmol/L Low 136-145 [facility] MAIN Comment on above: Performed By: #### M G, RFP, BMP, GFR #### [address] [address] Urea nitrogen [Mass/Vol] 83.0 mg/dL High 8.0-22.0 [facility] MAIN Comment on above: Performed By: #### M G, RFP, BMP, GFR #### [address] [address] XR CHEST 1 VIEWon 03-21-2025 XR CHEST [...] 03/21/2025 10:34:28 AM Ordering Provider: CHA YUSUF [facility] MAIN .Manual Diffon 03-20-2025 Bands 2.0 % Normal 0.0-5.0 [facility] MAIN Comment on above: Performed By: #### C BC, GFR, MORPH, RFP, DIFF #### [address] [address] Basophil %, Manual 0.0 % Normal 0.0-2.5 [facility] MAIN Comment on above: Performed By: #### C BC, GFR, MORPH, RFP, DIFF #### [address] [address] Basophil, Abs Manual 0.0 10 3/mcL Normal 0.0-0.3 [facility] MAIN Comment on above: Performed By: #### C BC, GFR, MORPH, RFP, DIFF #### [address] [address] Eosinophil %, Manual 3.0 % Normal 0.0-6.0 [facility] MAIN Comment on above: Performed By: #### C BC, GFR, MORPH, RFP, DIFF #### [address] [address] Eosinophil, Abs Manual 0.2 10 3/mcL Normal 0.0-0.7 [facility] MAIN Comment on above: Performed By: #### C BC, GFR, MORPH, RFP, DIFF #### [address] [address] Lymphocyte %, Manual 10.0 % Low 20.0-40.0 [facility] MAIN Comment on above: Performed By: #### C BC, GFR, MORPH, RFP, DIFF #### [address] [address] Lymphocyte, Abs Manual 0.7 10 3/mcL Low 0.9-4.3 [facility] MAIN Comment on above: Performed By: #### C BC, GFR, MORPH, RFP, DIFF #### [address] [address] Monocyte %, Manual 5.0 % Normal 2.0-13.0 [facility] MAIN Comment on above: Performed By: #### C BC, GFR, MORPH, RFP, DIFF #### [place] [id number] Monocyte, Abs Manual 0.3 10 3/mcL Normal 0.1-1.4 [facility] MAIN Comment on above: Performed By: #### C BC, GFR, MORPH, RFP, DIFF #### [place] [address] Neutrophil %, Manual 80.0 % High 50.0-75.0 [facility] MAIN Comment on above: Performed By: #### C BC, GFR, MORPH, RFP, DIFF #### [address] [address] Neutrophil, Abs Manual 5.1 10 3/mcL Normal 2.3-8.1 [facility] MAIN Comment on above: Performed By: #### C BC, GFR, MORPH, RFP, DIFF #### [address] [address] Nucleated RBC 0.0 /100 WBC Normal [facility] Comment on above: Performed By: #### C BC, GFR, MORPH, RFP, DIFF #### [address] [address] .Morphon 03-20-2025 Anisocytosis Ql (Bld) 2+ Normal [facility] Comment on above: Performed By: #### C BC, GFR, MORPH, RFP, DIFF #### [address] [address] Microcytosis 2+ Normal [facility] Comment on above: Performed By: #### C BC, GFR, MORPH, RFP, DIFF #### [place] [address] Ovalocytes 2+ [facility] Comment on above: Performed By: #### C BC, GFR, MORPH, RFP, DIFF #### [place] [address] Platelet Clumps Few Normal [facility] MAIN Comment on above: Performed By: #### C BC, GFR, MORPH, RFP, DIFF #### [place] [address] Platelet Estimate Normal [facility] MAIN Comment on above: Performed By: #### C BC, GFR, MORPH, RFP, DIFF #### [place] [address] Poik 1+ [facility] MAIN Comment on above: Performed By: #### C BC, GFR, MORPH, RFP, DIFF #### [place] [address] Polychrom 1+ [facility] MAIN Comment on above: Performed By: #### C BC, GFR, MORPH, RFP, DIFF #### [place] [address] CBCon 03-20-2025 Platelet 174 10 3/mcL Normal 150-450 [facility] MAIN Comment on above: Order Comment: Speci men clotted. Called Crissy from venipuncture for recollect. 2025 05:24:36 EDT Performed By: #### C BC, GFR, MORPH, RFP, DIFF #### [place] [address] Platelet mean volume (Bld) [Entitic vol] 9.4 fL Normal 6.6-10.5 [facility] MAIN Comment on above: Order Comment: Speci men clotted. Called Crissy from venipuncture for recollect. 2025 05:24:36 EDT Performed By: #### C BC, GFR, MORPH, RFP, DIFF #### [place] [address] .GFRon 2025 Estimated Glomerular Filtration Rate 15 ml/min/1.73sqm [facility] MAIN Comment on above: Result Comment: Stages [...] C BC, GFR, MORPH, RFP, DIFF #### [address] [address] CBCon 2025 Erythrocyte distribution width (RBC) [Ratio] 26.1 % High 11.5-15.5 [facility] MAIN Comment on above: Order Comment: Speci men clotted. Called Crissy from venipuncture for recollect. 2025 05:24:36 EDT Performed By: #### C BC, GFR, MORPH, RFP, DIFF #### [place] [address] Hematocrit (Bld) [Volume fraction] 27.6 % Low 34.0-46.0 [facility] MAIN Comment on above: Order Comment: Speci men clotted. Called Crissy from venipuncture for recollect. 2025 05:24:36 EDT Performed By: #### C BC, GFR, MORPH, RFP, DIFF #### [place] [id number] Hgb 8.7 G/dL Low 12.0-16.0 [facility] MAIN Comment on above: Order Comment: Speci men clotted. Called Crissy from venipuncture for recollect. 2025 05:24:36 EDT Performed By: #### C BC, GFR, MORPH, RFP, DIFF #### [place] [phone] MCH (RBC) [Entitic mass] 22.4 pg Low 27.0-33.0 [facility] MAIN Comment on above: Order Comment: Speci men clotted. Called Crissy from venipuncture for recollect. 2025 05:24:36 EDT Performed By: #### C BC, GFR, MORPH, RFP, DIFF #### [place] [address] MCHC 31.4 G/dL Low 32.0-36.0 [facility] MAIN Comment on above: Order Comment: Speci men clotted. Called Crissy from venipuncture for recollect. 2025 05:24:36 EDT Performed By: #### C BC, GFR, MORPH, RFP, DIFF #### [address] [address] MCV (RBC) [Entitic vol] 71.3 fL Low 80.0-99.0 [facility] MAIN Comment on above: Order Comment: Speci men clotted. Called Crissy from venipuncture for recollect. 2025 05:24:36 EDT Performed By: #### C BC, GFR, MORPH, RFP, DIFF #### [place] [address] RBC 3.87 10 6/mcL Low 4.10-5.30 [facility] MAIN Comment on above: Order Comment: Speci men clotted. Called Crissy from venipuncture for recollect. 2025 05:24:36 EDT Performed By: #### C BC, GFR, MORPH, RFP, DIFF #### [place] [address] WBC 6.4 10 3/mcL Normal 4.5-10.8 [facility] MAIN Comment on above: Order Comment: Speci men clotted. Called Crissy from venipuncture for recollect. 2025 05:24:36 EDT Performed By: #### C BC, GFR, MORPH, RFP, DIFF #### [place] [address] RFPon 2025 Albumin Level 2.2 G/dL Low 3.2-4.8 [facility] MAIN Comment on above: Performed By: #### C BC, GFR, MORPH, RFP, DIFF #### [place] [address] BUN/Creatinine Ratio 30.0 ratio High 10.0-22.0 [facility] MAIN Comment on above: Performed By: #### C BC, GFR, MORPH, RFP, DIFF #### [place] [address] Calcium [Mass/Vol] 8.3 mg/dL Low 8.7-10.4 [facility] MAIN Comment on above: Performed By: #### C BC, GFR, MORPH, RFP, DIFF #### [place] [address] Chloride [Moles/Vol] 93 mmol/L Low 98-110 [facility] MAIN Comment on above: Performed By: #### C BC, GFR, MORPH, RFP, DIFF #### [place] [address] CO2 [Moles/Vol] 21 mmol/L Low 22-32 [facility] MAIN Comment on above: Performed By: #### C BC, GFR, MORPH, RFP, DIFF #### [place] [address] Creatinine [Mass/Vol] 3.03 mg/dL High 0.50-1.20 [facility] MAIN Comment on above: Result Comment: Test ing performed on [employer] analyzer using enzymatic creatinine methodology. Performed By: #### C BC, GFR, MORPH, RFP, DIFF #### [place] [address] Electrolyte Balance 14.0 mEq/L Normal 4.0-15.0 [facility] MAIN Comment on above: Performed By: #### C BC, GFR, MORPH, RFP, DIFF #### [place] [phone] Glucose [Mass/Vol] 185 mg/dL High 82-115 [facility] MAIN Comment on above: Performed By: #### C BC, GFR, MORPH, RFP, DIFF #### [place] [phone] Phosphate [Mass/Vol] 6.6 mg/dL High 2.4-5.1 [facility] MAIN Comment on above: Performed By: #### C BC, GFR, MORPH, RFP, DIFF #### [facility] [address] [place] [address] Potassium [Moles/Vol] 4.5 mmol/L Normal 3.5-5.0 [facility] MAIN Comment on above: Performed By: #### C BC, GFR, MORPH, RFP, DIFF #### [facility] [address] [place] [address] Sodium [Moles/Vol] 128 mmol/L Low 136-145 [facility] MAIN Comment on above: Performed By: #### C BC, GFR, MORPH, RFP, DIFF #### [facility] [address] [place] [address] Urea nitrogen [Mass/Vol] 91.0 mg/dL High 8.0-22.0 [facility] MAIN Comment on above: Performed By: #### C BC, GFR, MORPH, RFP, DIFF #### [address] [address] XR CHEST 1 VIEWon 2025 XR CHEST [...] 2025 9:57:53 AM Ordering Provider: JANAE ZARCO [facility] MAIN .GFRon 03-17-2025 Estimated Glomerular Filtration Rate 31 ml/min/1.73sqm [facility] MAIN Comment on above: Result Comment: Stages [...] #### M G, RFP, BMP, GFR #### [address] [address] BMPon 03-17-2025 BUN/Creatinine Ratio 46.8 ratio High 10.0-22.0 [facility] MAIN Comment on above: Performed By: #### M G, RFP, BMP, GFR #### [address] [address] Calcium [Mass/Vol] 7.7 mg/dL Low 8.7-10.4 [facility] MAIN Comment on above: Performed By: #### M G, RFP, BMP, GFR #### [address] [address] Chloride [Moles/Vol] 102 mmol/L Normal 98-110 [facility] MAIN Comment on above: Performed By: #### M G, RFP, BMP, GFR #### [address] [address] CO2 [Moles/Vol] 26 mmol/L Normal 22-32 [facility] MAIN Comment on above: Performed By: #### M G, RFP, BMP, GFR #### [address] [address] Creatinine [Mass/Vol] 1.71 mg/dL High 0.50-1.20 [facility] MAIN Comment on above: Result Comment: Test ing performed on [employer] analyzer using enzymatic creatinine methodology. Performed By: #### M G, RFP, BMP, GFR #### [address] [address] Electrolyte Balance 9.0 mEq/L Normal 4.0-15.0 [facility] MAIN Comment on above: Performed By: #### M G, RFP, BMP, GFR #### [address] [address] Glucose [Mass/Vol] 231 mg/dL High 82-115 [facility] MAIN Comment on above: Performed By: #### M G, RFP, BMP, GFR #### [address] [address] Potassium [Moles/Vol] 3.8 mmol/L Normal 3.5-5.0 [facility] MAIN Comment on above: Performed By: #### M G, RFP, BMP, GFR #### [address] [address] Sodium [Moles/Vol] 137 mmol/L Normal 136-145 [facility] MAIN Comment on above: Performed By: #### M G, RFP, BMP, GFR #### [address] [address] Urea nitrogen [Mass/Vol] 80.0 mg/dL High 8.0-22.0 [facility] MAIN Comment on above: Performed By: #### M G, RFP, BMP, GFR #### [address] [address] HBSABon 03-17-2025 Hep B Surf Ab <3.1 Low >=10.0 [facility] MAIN Comment on above: Result Comment: [...] C BC, GFR, MORPH, RFP, DIFF #### [address] [address] HBSAGon 03-17-2025 Hep B Surf Ag Non-Reactive Normal Non-Reactive [facility] MAIN Comment on above: Performed By: #### C BC, GFR, MORPH, RFP, DIFF #### [address] [address] .GFRon 03-16-2025 Estimated Glomerular Filtration Rate 27 ml/min/1.73sqm Normal [facility] MAIN Comment on above: Result Comment: [...] #### M G, RFP, BMP, GFR #### [address] [address] RFPon 03-16-2025 Albumin Level 2.4 G/dL Low 3.2-4.8 [facility] MAIN Comment on above: Performed By: #### M G, RFP, BMP, GFR #### [address] [address] BUN/Creatinine Ratio 57.0 ratio High 10.0-22.0 [facility] MAIN Comment on above: Performed By: #### M G, RFP, BMP, GFR #### [address] [address] Calcium [Mass/Vol] 8.7 mg/dL Normal 8.7-10.4 [facility] MAIN Comment on above: Performed By: #### M G, RFP, BMP, GFR #### [address] [address] Chloride [Moles/Vol] 108 mmol/L Normal 98-110 [facility] MAIN Comment on above: Performed By: #### M G, RFP, BMP, GFR #### [address] [address] CO2 [Moles/Vol] 24 mmol/L Normal 22-32 [facility] MAIN Comment on above: Performed By: #### M G, RFP, BMP, GFR #### [address] [address] Creatinine [Mass/Vol] 1.93 mg/dL High 0.50-1.20 [facility] MAIN Comment on above: Result Comment: Test ing performed on [employer] analyzer using enzymatic creatinine methodology. Performed By: #### M G, RFP, BMP, GFR #### [address] [address] Electrolyte Balance 8.0 mEq/L Normal 4.0-15.0 [facility] MAIN Comment on above: Performed By: #### M G, RFP, BMP, GFR #### [address] [address] Glucose [Mass/Vol] 323 mg/dL High 82-115 [facility] MAIN Comment on above: Performed By: #### M G, RFP, BMP, GFR #### [address] [address] Phosphate [Mass/Vol] 5.2 mg/dL High 2.4-5.1 [facility] MAIN Comment on above: Performed By: #### M G, RFP, BMP, GFR #### [address] [address] Potassium [Moles/Vol] 5.0 mmol/L Normal 3.5-5.0 [facility] MAIN Comment on above: Performed By: #### M G, RFP, BMP, GFR #### [address] [address] Sodium [Moles/Vol] 140 mmol/L Normal 136-145 [facility] MAIN Comment on above: Performed By: #### M G, RFP, BMP, GFR #### [address] [address] Urea nitrogen [Mass/Vol] 110.0 mg/dL High 8.0-22.0 [facility] MAIN Comment on above: Performed By: #### M G, RFP, BMP, GFR #### [address] [address] MGon 03-15-2025 Magnesium [Mass/Vol] 2.1 mg/dL Normal 1.6-2.4 [facility] MAIN Comment on above: Performed By: #### C BC, GFR, MORPH, RFP, DIFF #### [address] [address] .Auto Diffon 03-14-2025 Basophil, Absolute 0.1 10 3/mcL Normal 0.0-0.3 [facility] MAIN Comment on above: Performed By: #### M G, RFP, BMP, GFR #### [address] [address] Basophils/100 WBC (Bld) 0.6 % Normal 0.0-2.5 [facility] MAIN Comment on above: Performed By: #### M G, RFP, BMP, GFR #### [address] [address] Eosinophil, Absolute 0.0 10 3/mcL Normal 0.0-0.7 [facility] MAIN Comment on above: Performed By: #### M G, RFP, BMP, GFR #### [address] [address] Eosinophils/100 WBC (Bld) 0.4 % Normal 0.0-6.0 [facility] MAIN Comment on above: Performed By: #### M G, RFP, BMP, GFR #### [address] [address] Lymphocyte, Absolute 0.3 10 3/mcL Low 0.9-4.3 [facility] MAIN Comment on above: Performed By: #### M G, RFP, BMP, GFR #### [address] [address] Lymphocytes/100 WBC (Bld) 3.7 % Low 20.0-40.0 [facility] MAIN Comment on above: Performed By: #### M G, RFP, BMP, GFR #### [address] [address] Monocyte, Absolute 0.5 10 3/mcL Normal 0.1-1.4 [facility] MAIN Comment on above: Performed By: #### M G, RFP, BMP, GFR #### [address] [address] Monocytes/100 WBC (Bld) 5.7 % Normal 2.0-13.0 [facility] MAIN Comment on above: Performed By: #### M G, RFP, BMP, GFR #### [place] [address] Neutrophils/100 WBC (Bld) 89.6 % High 50.0-75.0 [facility] MAIN Comment on above: Performed By: #### M G, RFP, BMP, GFR #### [place] [address] .GFRon 03-14-2025 Estimated Glomerular Filtration Rate 34 ml/min/1.73sqm [facility] MAIN Comment on above: Result Comment: Stages [...] #### M G, RFP, BMP, GFR #### [address] [address] .Morphon 03-14-2025 Anisocytosis Ql (Bld) 2+ Normal [facility] MAIN Comment on above: Performed By: #### M G, RFP, BMP, GFR #### [place] [address] Microcytosis 2+ [facility] MAIN Comment on above: Performed By: #### M G, RFP, BMP, GFR #### [place] [address] Ovalocytes 1+ [facility] MAIN Comment on above: Performed By: #### M G, RFP, BMP, GFR #### [place] [address] Platelet Estimate Normal [facility] MAIN Comment on above: Performed By: #### M G, RFP, BMP, GFR #### [place] [address] Poik 1+ Normal [facility] MAIN Comment on above: Performed By: #### M G, RFP, BMP, GFR #### [place] [address] .NEUABSon 03-14-2025 Neutrophil, Absolute 7.4 10 3/mcL Normal 2.3-8.1 [facility] MAIN Comment on above: Performed By: #### M G, RFP, BMP, GFR #### [place] [address] CBCon 03-14-2025 Platelet 200 10 3/mcL Normal 150-450 [facility] MAIN Comment on above: Performed By: #### M G, RFP, BMP, GFR #### [place] [address] Platelet mean volume (Bld) [Entitic vol] 9.5 fL Normal 6.6-10.5 [facility] MAIN Comment on above: Performed By: #### M G, RFP, BMP, GFR #### [place] [address] Erythrocyte distribution width (RBC) [Ratio] 25.5 % High 11.5-15.5 [facility] MAIN Comment on above: Performed By: #### M G, RFP, BMP, GFR #### [place] [address] Hematocrit (Bld) [Volume fraction] 31.7 % Low 34.0-46.0 [facility] MAIN Comment on above: Performed By: #### M G, RFP, BMP, GFR #### [place] [address] Hgb 9.8 G/dL Low 12.0-16.0 [facility] MAIN Comment on above: Performed By: #### M G, RFP, BMP, GFR #### [place] [address] MCH (RBC) [Entitic mass] 22.8 pg Low 27.0-33.0 [facility] MAIN Comment on above: Performed By: #### M G, RFP, BMP, GFR #### [address] [address] MCHC 31.0 G/dL Low 32.0-36.0 [facility] MAIN Comment on above: Performed By: #### M G, RFP, BMP, GFR #### [address] [address] MCV (RBC) [Entitic vol] 73.7 fL Low 80.0-99.0 [facility] MAIN Comment on above: Performed By: #### M G, RFP, BMP, GFR #### [address] [address] RBC 4.31 10 6/mcL Normal 4.10-5.30 [facility] MAIN Comment on above: Performed By: #### M G, RFP, BMP, GFR #### [address] [address] WBC 8.3 10 3/mcL Normal 4.5-10.8 [facility] MAIN Comment on above: Performed By: #### M G, RFP, BMP, GFR #### [address] [address] RFPon 03-14-2025 Albumin Level 2.5 G/dL Low 3.2-4.8 [facility] MAIN Comment on above: Performed By: #### M G, RFP, BMP, GFR #### [address] [address] BUN/Creatinine Ratio 52.9 ratio High 10.0-22.0 [facility] MAIN Comment on above: Performed By: #### M G, RFP, BMP, GFR #### [address] [address] Calcium [Mass/Vol] 8.5 mg/dL Low 8.7-10.4 [facility] MAIN Comment on above: Performed By: #### M G, RFP, BMP, GFR #### [address] [address] Chloride [Moles/Vol] 113 mmol/L High 98-110 [facility] MAIN Comment on above: Performed By: #### M G, RFP, BMP, GFR #### [address] [address] CO2 [Moles/Vol] 22 mmol/L Normal 22-32 [facility] MAIN Comment on above: Performed By: #### M G, RFP, BMP, GFR #### [address] [address] Creatinine [Mass/Vol] 1.57 mg/dL High 0.50-1.20 [facility] MAIN Comment on above: Result Comment: Test ing performed on [employer] analyzer using enzymatic creatinine methodology. Performed By: #### M G, RFP, BMP, GFR #### [address] [address] Electrolyte Balance 12.0 mEq/L Normal 4.0-15.0 [facility] MAIN Comment on above: Performed By: #### M G, RFP, BMP, GFR #### [address] [address] Glucose [Mass/Vol] 346 mg/dL High 82-115 [facility] MAIN Comment on above: Performed By: #### M G, RFP, BMP, GFR #### [address] [address] Phosphate [Mass/Vol] 2.8 mg/dL Normal 2.4-5.1 [facility] MAIN Comment on above: Performed By: #### M G, RFP, BMP, GFR #### [address] [address] Potassium [Moles/Vol] 4.2 mmol/L Normal 3.5-5.0 [facility] MAIN Comment on above: Performed By: #### M G, RFP, BMP, GFR #### [address] [address] Sodium [Moles/Vol] 147 mmol/L High 136-145 [facility] MAIN Comment on above: Performed By: #### M G, RFP, BMP, GFR #### [address] [address] Urea nitrogen [Mass/Vol] 83.0 mg/dL High 8.0-22.0 [facility] MAIN Comment on above: Performed By: #### M G, RFP, BMP, GFR #### [address] [address] XR CHEST 1 VIEWon 03-14-2025 XR CHEST [...] 03/14/2025 4:20:34 PM Ordering Provider: BISHNU SALAMANCA [facility] MAIN .GFRon 03-13-2025 Estimated Glomerular Filtration Rate 41 ml/min/1.73sqm [facility] MAIN Comment on above: Result Comment: Stages [...] C BC, GFR, MORPH, RFP, DIFF #### [address] [address] BMPon 03-13-2025 BUN/Creatinine Ratio 49.6 ratio High 10.0-22.0 [facility] MAIN Comment on above: Performed By: #### C BC, GFR, MORPH, RFP, DIFF #### [address] [address] Calcium [Mass/Vol] 8.4 mg/dL Low 8.7-10.4 [facility] MAIN Comment on above: Performed By: #### C BC, GFR, MORPH, RFP, DIFF #### [address] [address] Chloride [Moles/Vol] 113 mmol/L High 98-110 [facility] MAIN Comment on above: Performed By: #### C BC, GFR, MORPH, RFP, DIFF #### [address] [address] CO2 [Moles/Vol] 23 mmol/L Normal 22-32 [facility] MAIN Comment on above: Performed By: #### C BC, GFR, MORPH, RFP, DIFF #### [address] [address] Creatinine [Mass/Vol] 1.35 mg/dL High 0.50-1.20 [facility] MAIN Comment on above: Result Comment: Test ing performed on [employer] analyzer using enzymatic creatinine methodology. Performed By: #### C BC, GFR, MORPH, RFP, DIFF #### [address] [address] Electrolyte Balance 11.0 mEq/L Normal 4.0-15.0 [facility] MAIN Comment on above: Performed By: #### C BC, GFR, MORPH, RFP, DIFF #### [address] [address] Glucose [Mass/Vol] 306 mg/dL High 82-115 [facility] MAIN Comment on above: Performed By: #### C BC, GFR, MORPH, RFP, DIFF #### [address] [address] Potassium [Moles/Vol] 3.9 mmol/L Normal 3.5-5.0 [facility] MAIN Comment on above: Performed By: #### C BC, GFR, MORPH, RFP, DIFF #### [address] [address] Sodium [Moles/Vol] 147 mmol/L High 136-145 [facility] MAIN Comment on above: Performed By: #### C BC, GFR, MORPH, RFP, DIFF #### [address] [address] Urea nitrogen [Mass/Vol] 67.0 mg/dL High 8.0-22.0 [facility] MAIN Comment on above: Performed By: #### C BC, GFR, MORPH, RFP, DIFF #### [address] [address] .Auto Diffon 03-12-2025 Basophil, Absolute 0.1 10 3/mcL Normal 0.0-0.3 [facility] MAIN Comment on above: Performed By: #### C BC, GFR, MORPH, RFP, DIFF #### [address] [address] Basophils/100 WBC (Bld) 0.7 % Normal 0.0-2.5 [facility] MAIN Comment on above: Performed By: #### C BC, GFR, MORPH, RFP, DIFF #### [place] [address] Eosinophil, Absolute 0.2 10 3/mcL Normal 0.0-0.7 [facility] MAIN Comment on above: Performed By: #### C BC, GFR, MORPH, RFP, DIFF #### [address] [address] Eosinophils/100 WBC (Bld) 2.9 % Normal 0.0-6.0 [facility] MAIN Comment on above: Performed By: #### C BC, GFR, MORPH, RFP, DIFF #### [address] [address] Lymphocyte, Absolute 1.0 10 3/mcL Normal 0.9-4.3 [facility] MAIN Comment on above: Performed By: #### C BC, GFR, MORPH, RFP, DIFF #### [address] [address] Lymphocytes/100 WBC (Bld) 12.1 % Low 20.0-40.0 [facility] MAIN Comment on above: Performed By: #### C BC, GFR, MORPH, RFP, DIFF #### [address] [address] Monocyte, Absolute 1.1 10 3/mcL Normal 0.1-1.4 [facility] MAIN Comment on above: Performed By: #### C BC, GFR, MORPH, RFP, DIFF #### [facility] [address] [place] [address] Monocytes/100 WBC (Bld) 14.2 % High 2.0-13.0 [facility] MAIN Comment on above: Performed By: #### C BC, GFR, MORPH, RFP, DIFF #### [facility] [address] [place] [address] Neutrophils/100 WBC (Bld) 70.1 % Normal 50.0-75.0 [facility] MAIN Comment on above: Performed By: #### C BC, GFR, MORPH, RFP, DIFF #### [address] [address] .GFRon 03-12-2025 Estimated Glomerular Filtration Rate 43 ml/min/1.73sqm Normal [facility] MAIN Comment on above: Result Comment: [...] C BC, GFR, MORPH, RFP, DIFF #### [address] [address] .NEUABSon 03-12-2025 Neutrophil, Absolute 5.6 10 3/mcL Normal 2.3-8.1 [facility] MAIN Comment on above: Performed By: #### C BC, GFR, MORPH, RFP, DIFF #### [facility] [address] [place] [address] BMPon 03-12-2025 BUN/Creatinine Ratio 49.6 ratio High 10.0-22.0 [facility] MAIN Comment on above: Performed By: #### C BC, GFR, MORPH, RFP, DIFF #### [address] [address] Calcium [Mass/Vol] 8.2 mg/dL Low 8.7-10.4 [facility] MAIN Comment on above: Performed By: #### C BC, GFR, MORPH, RFP, DIFF #### [address] [address] Chloride [Moles/Vol] 112 mmol/L High 98-110 [facility] MAIN Comment on above: Performed By: #### C BC, GFR, MORPH, RFP, DIFF #### [address] [address] CO2 [Moles/Vol] 21 mmol/L Low 22-32 [facility] MAIN Comment on above: Performed By: #### C BC, GFR, MORPH, RFP, DIFF #### [address] [address] Creatinine [Mass/Vol] 1.29 mg/dL High 0.50-1.20 [facility] MAIN Comment on above: Result Comment: Test ing performed on [employer] analyzer using enzymatic creatinine methodology. Performed By: #### C BC, GFR, MORPH, RFP, DIFF #### [address] [address] Electrolyte Balance 13.0 mEq/L Normal 4.0-15.0 [facility] MAIN Comment on above: Performed By: #### C BC, GFR, MORPH, RFP, DIFF #### [address] [address] Glucose [Mass/Vol] 317 mg/dL High 82-115 [facility] MAIN Comment on above: Performed By: #### C BC, GFR, MORPH, RFP, DIFF #### [address] [address] Potassium [Moles/Vol] 3.9 mmol/L Normal 3.5-5.0 [facility] Comment on above: Performed By: #### C BC, GFR, MORPH, RFP, DIFF #### [address] [address] Sodium [Moles/Vol] 146 mmol/L High 136-145 [facility] Comment on above: Performed By: #### C BC, GFR, MORPH, RFP, DIFF #### [place] [address] Urea nitrogen [Mass/Vol] 64.0 mg/dL High 8.0-22.0 [facility] Comment on above: Performed By: #### C BC, GFR, MORPH, RFP, DIFF #### [place] [address] CBCon 03-12-2025 Erythrocyte distribution width (RBC) [Ratio] 22.3 % High 11.5-15.5 [facility] Comment on above: Performed By: #### C BC, GFR, MORPH, RFP, DIFF #### [place] [address] Hematocrit (Bld) [Volume fraction] 31.5 % Low 34.0-46.0 [facility] Comment on above: Performed By: #### C BC, GFR, MORPH, RFP, DIFF #### [place] [address] Hgb 9.8 G/dL Low 12.0-16.0 [facility] Comment on above: Performed By: #### C BC, GFR, MORPH, RFP, DIFF #### [place] [address] MCH (RBC) [Entitic mass] 22.5 pg Low 27.0-33.0 [facility] Comment on above: Performed By: #### C BC, GFR, MORPH, RFP, DIFF #### [place] [address] MCHC 31.1 G/dL Low 32.0-36.0 [facility] Comment on above: Performed By: #### C BC, GFR, MORPH, RFP, DIFF #### [place] [address] MCV (RBC) [Entitic vol] 72.3 fL Low 80.0-99.0 [facility] MAIN Comment on above: Performed By: #### C BC, GFR, MORPH, RFP, DIFF #### [facility] [address] [place] [address] Platelet 190 10 3/mcL Normal 150-450 [facility]IN Comment on above: Performed By: #### C BC, GFR, MORPH, RFP, DIFF #### [facility] [address] [place] [address] Platelet mean volume (Bld) [Entitic vol] 9.2 fL Normal 6.6-10.5 [facility]IN Comment on above: Performed By: #### C BC, GFR, MORPH, RFP, DIFF #### [facility] [address] [place] [address] RBC 4.36 10 6/mcL Normal 4.10-5.30 [facility] Comment on above: Performed By: #### C BC, GFR, MORPH, RFP, DIFF #### [address] [address] WBC 8.0 10 3/mcL Normal 4.5-10.8 [facility] Comment on above: Performed By: #### C BC, GFR, MORPH, RFP, DIFF #### [address] [address] XR CHEST 1 VIEWon 03-12-2025 XR CHEST [...] 03/12/2025 9:38:23 AM Ordering Provider: BISHNU Vera [facility] .GFRon 03-11-2025 Estimated Glomerular Filtration Rate 43 ml/min/1.73sqm [facility] MAIN Comment on above: Result Comment: Stages [...] #### M G, RFP, BMP, GFR #### [address] [address] BMPon 03-11-2025 BUN/Creatinine Ratio 47.3 ratio High 10.0-22.0 [facility] MAIN Comment on above: Performed By: #### M G, RFP, BMP, GFR #### [address] [address] Calcium [Mass/Vol] 7.8 mg/dL Low 8.7-10.4 [facility] MAIN Comment on above: Performed By: #### M G, RFP, BMP, GFR #### [address] [address] Chloride [Moles/Vol] 110 mmol/L Normal 98-110 [facility] MAIN Comment on above: Performed By: #### M G, RFP, BMP, GFR #### [address] [address] CO2 [Moles/Vol] 23 mmol/L Normal 22-32 [facility] MAIN Comment on above: Performed By: #### M G, RFP, BMP, GFR #### [address] [address] Creatinine [Mass/Vol] 1.29 mg/dL High 0.50-1.20 [facility] MAIN Comment on above: Result Comment: Test ing performed on [employer] analyzer using enzymatic creatinine methodology. Performed By: #### M G, RFP, BMP, GFR #### [address] [address] Electrolyte Balance 10.0 mEq/L Normal 4.0-15.0 [facility] MAIN Comment on above: Performed By: #### M G, RFP, BMP, GFR #### [address] [address] Glucose [Mass/Vol] 371 mg/dL High 82-115 [facility] Comment on above: Performed By: #### M G, RFP, BMP, GFR #### [address] [address] Potassium [Moles/Vol] 3.4 mmol/L Low 3.5-5.0 [facility] MAIN Comment on above: Performed By: #### M G, RFP, BMP, GFR #### [address] [address] Sodium [Moles/Vol] 143 mmol/L Normal 136-145 [facility] Comment on above: Performed By: #### M G, RFP, BMP, GFR #### [address] [address] Urea nitrogen [Mass/Vol] 61.0 mg/dL High 8.0-22.0 [facility] Comment on above: Performed By: #### M G, RFP, BMP, GFR #### [address] [address] MGon 03-11-2025 Magnesium [Mass/Vol] 1.8 mg/dL Normal 1.6-2.4 [facility] MA[facility] Comment on above: Performed By: #### M G, RFP, BMP, GFR #### [address] [address] RFPon 03-11-2025 Albumin Level 2.4 G/dL Low 3.2-4.8 [facility] MA[facility] Comment on above: Performed By: #### M G, RFP, BMP, GFR #### [address] [address] Phosphate [Mass/Vol] 2.4 mg/dL Normal 2.4-5.1 [facility] MA[facility] Comment on above: Performed By: #### M G, RFP, BMP, GFR #### [address] [address] .GFRon 03-10-2025 Estimated Glomerular Filtration Rate 41 ml/min/1.73sqm Normal [facility] MA[facility] Comment on above: Result Comment: [...] Performed By: #### G FR, RFP #### [address] [address] [facility] 03-10-2025 BUN/Creatinine Ratio 45.1 ratio High 10.0-22.0 [facility] MA[facility] Comment on above: Performed By: #### G FR, RFP #### [address] [address] Calcium [Mass/Vol] 8.2 mg/dL Low 8.7-10.4 [facility] Comment on above: Performed By: #### G FR, RFP #### [address] [address] Chloride [Moles/Vol] 114 mmol/L High 98-110 [facility] MA[facility] Comment on above: Performed By: #### G FR, RFP #### [address] [address] CO2 [Moles/Vol] 24 mmol/L Normal 22-32 [facility] Comment on above: Performed By: #### G FR, RFP #### [address] [address] Creatinine [Mass/Vol] 1.33 mg/dL High 0.50-1.20 [facility] Comment on above: Result Comment: Test ing performed on [employer] analyzer using enzymatic creatinine methodology. Performed By: #### G FR, RFP #### [address] [address] Electrolyte Balance 11.0 mEq/L Normal 4.0-15.0 [facility] MAIN Comment on above: Performed By: #### G FR, RFP #### [address] [address] Glucose [Mass/Vol] 309 mg/dL High 82-115 [facility] Comment on above: Performed By: #### Linda FR, RFP #### [address] [address] Potassium [Moles/Vol] 3.2 mmol/L Low 3.5-5.0 [facility] Comment on above: Performed By: #### Linda FR, RFP #### [address] [address] Sodium [Moles/Vol] 149 mmol/L High 136-145 [facility] Comment on above: Performed By: #### Linda FR, RFP #### [address] [address] Urea nitrogen [Mass/Vol] 60.0 mg/dL High 8.0-22.0 [facility] MA[facility] Comment on above: Performed By: #### Linda FR, RFP #### [address] [address] MGon 03-10-2025 Magnesium [Mass/Vol] 1.7 mg/dL Normal 1.6-2.4 [facility] MA[facility] Comment on above: Performed By: #### Linda FR, RFP #### [place] [phone] PHOSon 03-10-2025 Phosphate [Mass/Vol] 1.1 mg/dL Critically abnormal 2.4-5.1 [facility] MAIN Comment on above: Order Comment: vrb- called critical Phos to RYNE Slade 03/10/2025 04:02:07 EDT SAS Performed By: #### Iain G, RFP, BMP, GFR #### [address] [address] .GFRon 03-09-2025 Estimated Glomerular Filtration Rate 42 ml/min/1.73sqm Normal [facility] MAIN Comment on above: Result Comment: [...] C BC, GFR, MORPH, RFP, DIFF #### [address] [address] [facility] 03-09-2025 BUN/Creatinine Ratio 37.4 ratio High 10.0-22.0 [facility] Comment on above: Performed By: #### C BC, GFR, MORPH, RFP, DIFF #### [address] [address] Calcium [Mass/Vol] 8.8 mg/dL Normal 8.7-10.4 [facility] Comment on above: Performed By: #### C BC, GFR, MORPH, RFP, DIFF #### [address] [address] Chloride [Moles/Vol] 117 mmol/L High 98-110 [facility] MA[facility] Comment on above: Performed By: #### C BC, GFR, MORPH, RFP, DIFF #### [address] [address] CO2 [Moles/Vol] 28 mmol/L Normal 22-32 [facility] MA[facility] Comment on above: Performed By: #### C BC, GFR, MORPH, RFP, DIFF #### [address] [address] Creatinine [Mass/Vol] 1.31 mg/dL High 0.50-1.20 [facility] MAIN Comment on above: Result Comment: Test ing performed on [employer] analyzer using enzymatic creatinine methodology. Performed By: #### C BC, GFR, MORPH, RFP, DIFF #### [address] [address] Electrolyte Balance 8.0 mEq/L Normal 4.0-15.0 [facility] MAIN Comment on above: Performed By: #### C BC, GFR, MORPH, RFP, DIFF #### [address] [address] Glucose [Mass/Vol] 256 mg/dL High 82-115 [facility] MA[facility] Comment on above: Performed By: #### C BC, GFR, MORPH, RFP, DIFF #### [address] [address] Potassium [Moles/Vol] 3.5 mmol/L Normal 3.5-5.0 [facility] MA[facility] Comment on above: Performed By: #### C BC, GFR, MORPH, RFP, DIFF #### [address] [address] Sodium [Moles/Vol] 153 mmol/L High 136-145 [facility] Comment on above: Performed By: #### C BC, GFR, MORPH, RFP, DIFF #### [place] [address] Urea nitrogen [Mass/Vol] 49.0 mg/dL High 8.0-22.0 [facility] MAIN Comment on above: Performed By: #### C BC, GFR, MORPH, RFP, DIFF #### [address] [address] .Auto Diffon 03-08-2025 Basophil, Absolute 0.1 10 3/mcL Normal 0.0-0.3 [facility] MAIN Comment on above: Performed By: #### C BC, GFR, MORPH, RFP, DIFF #### [address] [address] Basophils/100 WBC (Bld) 0.9 % Normal 0.0-2.5 [facility] MAIN Comment on above: Performed By: #### C BC, GFR, MORPH, RFP, DIFF #### [address] [address] Eosinophil, Absolute 0.2 10 3/mcL Normal 0.0-0.7 [facility] MAIN Comment on above: Performed By: #### C BC, GFR, MORPH, RFP, DIFF #### [address] [address] Eosinophils/100 WBC (Bld) 2.2 % Normal 0.0-6.0 [facility] MAIN Comment on above: Performed By: #### C BC, GFR, MORPH, RFP, DIFF #### [facility] [address] [place] [address] Lymphocyte, Absolute 0.7 10 3/mcL Low 0.9-4.3 [facility] MAIN Comment on above: Performed By: #### C BC, GFR, MORPH, RFP, DIFF #### [address] [address] Lymphocytes/100 WBC (Bld) 7.3 % Low 20.0-40.0 [facility] MAIN Comment on above: Performed By: #### C BC, GFR, MORPH, RFP, DIFF #### [address] [address] Monocyte, Absolute 0.7 10 3/mcL Normal 0.1-1.4 [facility] MAIN Comment on above: Performed By: #### C BC, GFR, MORPH, RFP, DIFF #### [address] [address] Monocytes/100 WBC (Bld) 6.7 % Normal 2.0-13.0 [facility] MAIN Comment on above: Performed By: #### C BC, GFR, MORPH, RFP, DIFF #### [address] [address] Neutrophils/100 WBC (Bld) 82.9 % High 50.0-75.0 [facility] MAIN Comment on above: Performed By: #### C BC, GFR, MORPH, RFP, DIFF #### [address] [address] .GFRon 03-08-2025 Estimated Glomerular Filtration Rate 40 ml/min/1.73sqm [facility] MAIN Comment on above: Result Comment: Stages [...] C BC, GFR, MORPH, RFP, DIFF #### [facility] [address] [place] [address] .NEUABSon 03-08-2025 Neutrophil, Absolute 8.4 10 3/mcL High 2.3-8.1 [facility] MAIN Comment on above: Performed By: #### C BC, GFR, MORPH, RFP, DIFF #### [facility] [address] [place] [address] Basic Metabolic Profile (BMP )on 03-08-2025 BUN Normal 4-19 [facility] Comment on above: Result Comment: Canc elled via OM: Order cancelled - Patient discharged Performed By: #### L 500.2500, L100.0100 ####[facility] [address] [place], [address] BUN/CRE Normal 10-20 [facility] Comment on above: Result Comment: Canc elled via OM: Order cancelled - Patient discharged Performed By: #### L 500.2500, L100.0100 ####[facility] [address] [place], [address] Calcium Normal 7.6-11.0 [facility] Comment on above: Result Comment: Canc elled via OM: Order cancelled - Patient discharged Performed By: #### L 500.2500, L100.0100 ####[facility] [address] [place], [address] CL Normal 98-108 [facility] Comment on above: Result Comment: Canc elled via OM: Order cancelled - Patient discharged Performed By: #### L 500.2500, L100.0100 ####[facility] [address] [place], [address] CO2 Normal 21.0-32.0 [facility] Comment on above: Result Comment: Canc elled via OM: Order cancelled - Patient discharged Performed By: #### L 500.2500, L100.0100 ####[facility] [address] [place], [address] CREAT,SERUM Normal 0.70-1.20 [facility] Comment on above: Result Comment: Canc elled via OM: Order cancelled - Patient discharged Performed By: #### L 500.2500, L100.0100 ####[facility] [address] [place], [address] eGFR Normal >60 [facility] Comment on above: Result Comment: Canc elled via OM: Order cancelled - Patient discharged Performed By: #### L 500.2500, L100.0100 ####[facility] [address] [place], [address] GAP Normal 5-15 [facility] Comment on above: Result Comment: Canc elled via OM: Order cancelled - Patient discharged Performed By: #### L 500.2500, L100.0100 ####[facility] [address] [place], [address] GLU Normal 70-99 [facility] Comment on above: Result Comment: Canc elled via OM: Order cancelled - Patient discharged Performed By: #### L 500.2500, L100.0100 ####[facility] [address] [place], [address] Potassium Normal 3.3-5.1 [facility] Comment on above: Result Comment: Canc elled via OM: Order cancelled - Patient discharged Performed By: #### L 500.2500, L100.0100 ####[facility] [address] [place], [address] Basic Metabolic Profile (BMP) Normal 133-145 [facility] Comment on above: Result Comment: Canc elled via OM: Order cancelled - Patient discharged Performed By: #### L 500.2500, L100.0100 ####[facility] [address] [place], [address] CBCon 03-08-2025 Erythrocyte distribution width (RBC) [Ratio] 22.3 % High 11.5-15.5 [facility] MAIN Comment on above: Performed By: #### C BC, GFR, MORPH, RFP, DIFF #### [address] [address] Hematocrit (Bld) [Volume fraction] 31.9 % Low 34.0-46.0 [facility] MAIN Comment on above: Performed By: #### C BC, GFR, MORPH, RFP, DIFF #### [address] [address] Hgb 9.9 G/dL Low 12.0-16.0 [facility] MAIN Comment on above: Performed By: #### C BC, GFR, MORPH, RFP, DIFF #### [address] [address] MCH (RBC) [Entitic mass] 22.6 pg Low 27.0-33.0 [facility] MAIN Comment on above: Performed By: #### C BC, GFR, MORPH, RFP, DIFF #### [address] [address] MCHC 31.1 G/dL Low 32.0-36.0 [facility] MAIN Comment on above: Performed By: #### C BC, GFR, MORPH, RFP, DIFF #### [address] [address] MCV (RBC) [Entitic vol] 72.5 fL Low 80.0-99.0 [facility] MAIN Comment on above: Performed By: #### C BC, GFR, MORPH, RFP, DIFF #### [address] [address] Platelet 228 10 3/mcL Normal 150-450 [facility] MAIN Comment on above: Performed By: #### C BC, GFR, MORPH, RFP, DIFF #### [address] [place] [address] Platelet mean volume (Bld) [Entitic vol] 8.5 fL Normal 6.6-10.5 [facility] MAIN Comment on above: Performed By: #### C BC, GFR, MORPH, RFP, DIFF #### [facility] [address] [place] [address] RBC 4.41 10 6/mcL Normal 4.10-5.30 [facility] Comment on above: Performed By: #### C BC, GFR, MORPH, RFP, DIFF #### [facility] [address] [place] [address] WBC 10.1 10 3/mcL Normal 4.5-10.8 [facility] MA[facility] Comment on above: Performed By: #### C BC, GFR, MORPH, RFP, DIFF #### [address] [address] CBC W/Diff, Automatedon 02-25 Absolute Neut Normal 2.0-7.7 [facility] Comment on above: Result Comment: Canc elled via OM: Order cancelled - Patient discharged Performed By: #### L 500.2500, L100.0100 ####[facility] [address] [facility] [address] HCT Normal 37-47 [facility] Comment on above: Result Comment: Canc elled via OM: Order cancelled - Patient discharged Performed By: #### L 500.2500, L100.0100 ####[facility] [address] [facility] [address] HGB Normal 12.0-15.0 [facility] Comment on above: Result Comment: Canc elled via OM: Order cancelled - Patient discharged Performed By: #### L 500.2500, L100.0100 ####[facility] [address] [facility] [address] MCH Normal 27.0-32.0 [facility] Comment on above: Result Comment: Canc elled via OM: Order cancelled - Patient discharged Performed By: #### L 500.2500, L100.0100 ####[facility] [address] [place], [address] MCHC Normal 32-36 [facility] Comment on above: Result Comment: Canc elled via OM: Order cancelled - Patient discharged Performed By: #### L 500.2500, L100.0100 ####[facility] [address] [place], [address] MCV Normal 81-99 [facility] Comment on above: Result Comment: Canc elled via OM: Order cancelled - Patient discharged Performed By: #### L 500.2500, L100.0100 ####[facility] [address] [place], [address] NEUT% Normal 47-70 [facility] Comment on above: Result Comment: Canc elled via OM: Order cancelled - Patient discharged Performed By: #### L 500.2500, L100.0100 ####[facility] [address] [place], [address] PLT Normal 150-450 [facility] Comment on above: Result Comment: Canc elled via OM: Order cancelled - Patient discharged Performed By: #### L 500.2500, L100.0100 ####[facility] [address] [place], [address] RBC Normal 4.2-5.4 [facility] Comment on above: Result Comment: Canc elled via OM: Order cancelled - Patient discharged Performed By: #### L 500.2500, L100.0100 ####[facility] [address] [place], [address] RDW CV Normal 11.6-14.6 [facility] Comment on above: Result Comment: Canc elled via OM: Order cancelled - Patient discharged Performed By: #### L 500.2500, L100.0100 ####[facility] [address] [place], [address] RDW SD Normal 35.1-43.9 [facility] Comment on above: Result Comment: Canc elled via OM: Order cancelled - Patient discharged Performed By: #### L 500.2500, L100.0100 ####[facility] [address] [place], [address] WBC Normal 4.4-11.0 [facility] Comment on above: Result Comment: Canc elled via OM: Order cancelled - Patient discharged Performed By: #### L 500.2500, L100.0100 ####[facility] [address] [place], [address] CMPon 03-08-2025 Albumin Level 2.6 G/dL Low 3.2-4.8 [facility] Comment on above: Performed By: #### C BC, GFR, MORPH, RFP, DIFF #### [address] [address] Albumin/Globulin [Mass ratio] 0.7 {ratio} Low 0.9-1.6 [facility] Comment on above: Performed By: #### C BC, GFR, MORPH, RFP, DIFF #### [address] [address] ALP [Catalytic activity/Vol] 57 U/L Normal 38-126 [facility] Comment on above: Performed By: #### C BC, GFR, MORPH, RFP, DIFF #### [address] [address] ALT/SGPT <7 Low 10-49 [facility] Comment on above: Performed By: #### C BC, GFR, MORPH, RFP, DIFF #### [address] [address] AST [Catalytic activity/Vol] 11 U/L Normal 8-34 [facility] Comment on above: Performed By: #### C BC, GFR, MORPH, RFP, DIFF #### [address] [address] Bili Total 0.30 mg/dL Normal 0.20-1.20 [facility] Comment on above: Result Comment: Use of this assay is not recommended for patients undergoing treatment with eltrombopag due to the potential for falsely elevated results. Performed By: #### C BC, GFR, MORPH, RFP, DIFF #### [address] [address] BUN/Creatinine Ratio 34.6 ratio High 10.0-22.0 [facility] Comment on above: Performed By: #### C BC, GFR, MORPH, RFP, DIFF #### [address] [address] Calcium [Mass/Vol] 8.9 mg/dL Normal 8.7-10.4 [facility] Comment on above: Performed By: #### C BC, GFR, MORPH, RFP, DIFF #### [address] [address] Chloride [Moles/Vol] 116 mmol/L High 98-110 [facility] Comment on above: Performed By: #### C BC, GFR, MORPH, RFP, DIFF #### [address] [address] CO2 [Moles/Vol] 25 mmol/L Normal 22-32 [facility] Comment on above: Performed By: #### C BC, GFR, MORPH, RFP, DIFF #### [address] [address] Creatinine [Mass/Vol] 1.36 mg/dL High 0.50-1.20 [facility] Comment on above: Result Comment: Test ing performed on [employer] analyzer using enzymatic creatinine methodology. Performed By: #### C BC, GFR, MORPH, RFP, DIFF #### [address] [address] Electrolyte Balance 13.0 mEq/L Normal 4.0-15.0 [facility] Comment on above: Performed By: #### C BC, GFR, MORPH, RFP, DIFF #### [address] [address] Globulin 3.6 G/dL Normal 2.5-4.2 [facility] Comment on above: Performed By: #### C BC, GFR, MORPH, RFP, DIFF #### [address] [address] Glucose [Mass/Vol] 213 mg/dL High 82-115 [facility] Comment on above: Performed By: #### C BC, GFR, MORPH, RFP, DIFF #### [address] [address] Potassium [Moles/Vol] 3.3 mmol/L Low 3.5-5.0 [facility] Comment on above: Performed By: #### C BC, GFR, MORPH, RFP, DIFF #### [address] [address] Sodium [Moles/Vol] 154 mmol/L High 136-145 [facility] Comment on above: Performed By: #### C BC, GFR, MORPH, RFP, DIFF #### [address] [address] Total Protein 6.2 G/dL Normal 5.7-8.2 [facility] Comment on above: Performed By: #### C BC, GFR, MORPH, RFP, DIFF #### [address] [address] Urea nitrogen [Mass/Vol] 47.0 mg/dL High 8.0-22.0 [facility] Comment on above: Performed By: #### C BC, GFR, MORPH, RFP, DIFF #### [address] [address] XR CHEST 1 VIEWon 03-08-2025 XR CHEST [...] 03/08/2025 7:31:39 AM Ordering Provider: ELKE MARQUEZ [facility] MAIN Basic Metabolic Profile (BMP )on 03-07-2025 BUN/CRE 33.2 RATIO High 10-20 [facility] Comment on above: Performed By: #### L 100.0100, L500.2500 ####[facility] [address] [place], [address] Calcium [Mass/Vol] 9.2 mg/dL Normal 7.6-11.0 [facility] Comment on above: Performed By: #### L 100.0100, L500.2500 ####[facility] [address] [place], [address] Chloride [Moles/Vol] 114 mmol/L High 98-108 [facility] Comment on above: Performed By: #### L 100.0100, L500.2500 ####[facility] [address] [place], [address] CO2 [Moles/Vol] 19.9 mmol/L Low 21.0-32.0 [facility] Comment on above: Performed By: #### L 100.0100, L500.2500 ####[facility] [address] [place], [address] Creatinine [Mass/Vol] 1.46 mg/dL High 0.70-1.20 [facility] Comment on above: Performed By: #### L 100.0100, L500.2500 ####[facility] [address] [place], [address] ECRCL 38.38 ml/min Low 50-250 [facility] Comment on above: Performed By: #### L 100.0100, L500.2500 ####[facility] [address] [place], [address] GAP 16 High 5-15 [facility] Comment on above: Performed By: #### L 100.0100, L500.2500 ####[facility] [address] [place], [address] GFR/1.73 sq M.predicted among non-blacks MDRD (S/P/Bld) [Vol rate/Area] 37 mL/min/{1.73_m2} Low >60 [facility] Comment on above: Result Comment: mL/m in/1.73m2 CKD-EPI Creatinine Equation (2020) Performed By: #### L 100.0100, L500.2500 ####[facility] [address] [place], [address] Glucose [Mass/Vol] 167 mg/dL High 70-99 [facility] Comment on above: Performed By: #### L 100.0100, L500.2500 ####[facility] [address] [place], [address] Potassium [Moles/Vol] 3.3 mmol/L Normal 3.3-5.1 [facility] Comment on above: Performed By: #### L 100.0100, L500.2500 ####[facility] [address] [place], [address] Sodium [Moles/Vol] 150 mmol/L High 133-145 [facility] Comment on above: Performed By: #### L 100.0100, L500.2500 ####[facility] [address] [place], [address] Urea nitrogen [Mass/Vol] 49 mg/dL High 4-19 [facility] Comment on above: Performed By: #### L 100.0100, L500.2500 ####[facility] [address] [place], [address] Bedside Glucoseon 03-07-2025 [place] GLU 144 mg/dL High 74-106 [facility] Comment on above: Result Comment: VI MONTEJO OF PATIENT CARE PER NURSING PROTOCOL Performed By: #### L 501.080 ####[facility] [address] [place], [address] FINGERSTICK GLU 143 mg/dL High 74-106 [facility] Comment on above: Result Comment: VI MONTEJO OF PATIENT CARE PER NURSING PROTOCOL Performed By: #### L 501.080 ####[facility] [address] [place], [address] CBC W/Diff, Automatedon 06- Anisocytosis Ql (Bld) 2+ Normal [facility] Comment on above: Performed By: #### L 100.0100, L500.2500 ####[facility] [address] [place], [address] OVALOCYTE 2+ Normal [facility] Comment on above: Performed By: #### L 100.0100, L500.2500 ####[facility] [address] [place], [address] POLYCHROMASIA 1+ Normal [facility] Comment on above: Performed By: #### L 100.0100, L500.2500 ####[facility] [address] [place], [address] SCHISTOCYTES RARE Normal [facility] Comment on above: Performed By: #### L 100.0100, L500.2500 ####[facility] [address] [place], [address] PLT EST ADEQUATE Normal ADEQ [facility] Comment on above: Performed By: #### L 100.0100, L500.2500 ####[facility] [address] [place], [address] SMEAR COMMENT SCANNED Normal [facility] Comment on above: Performed By: #### L 100.0100, L500.2500 ####[facility] [address] [place], [address] Discharge Instructionon 02-25 Discharge Instruction Normal [facility] Basic Metabolic Profile (BMP )on 03-06-2025 BUN/CRE 33.2 RATIO High 10-20 [facility] Comment on above: Performed By: #### L 500.2500, L100.0100 ####[facility] [address] [place], [address] Calcium [Mass/Vol] 9.3 mg/dL Normal 7.6-11.0 [facility] Comment on above: Performed By: #### L 500.2500, L100.0100 ####[facility] [address] [place], [address] Chloride [Moles/Vol] 108 mmol/L Normal 98-108 [facility] Comment on above: Performed By: #### L 500.2500, L100.0100 ####[facility] [address] [place], [address] CO2 [Moles/Vol] 20.3 mmol/L Low 21.0-32.0 [facility] Comment on above: Performed By: #### L 500.2500, L100.0100 ####[facility] [address] [place], [address] Creatinine [Mass/Vol] 1.54 mg/dL High 0.70-1.20 [facility] Comment on above: Performed By: #### L 500.2500, L100.0100 ####[facility] [address] [place], [address] ECRCL 36.21 ml/min Low 50-250 [facility] Comment on above: Performed By: #### L 500.2500, L100.0100 ####[facility] [address] [place], [address] GAP 15 Normal 5-15 [facility] Comment on above: Performed By: #### L 500.2500, L100.0100 ####[facility] [address] [place], [address] GFR/1.73 sq M.predicted among non-blacks MDRD (S/P/Bld) [Vol rate/Area] 35 mL/min/{1.73_m2} Low >60 [facility] Comment on above: Result Comment: mL/m in/1.73m2 CKD-EPI Creatinine Equation (2020) Performed By: #### L 500.2500, L100.0100 ####[facility] [address] [place], [address] Glucose [Mass/Vol] 199 mg/dL High 70-99 [facility] Comment on above: Performed By: #### L 500.2500, L100.0100 ####[facility] [address] [place], [address] Potassium [Moles/Vol] 3.7 mmol/L Normal 3.3-5.1 [facility] Comment on above: Performed By: #### L 500.2500, L100.0100 ####[facility] [address] [place], [address] Sodium [Moles/Vol] 144 mmol/L Normal 133-145 [facility] Comment on above: Performed By: #### L 500.2500, L100.0100 ####[facility] [address] [place], [address] Urea nitrogen [Mass/Vol] 51 mg/dL High 4-19 [facility] Comment on above: Performed By: #### L 500.2500, L100.0100 ####[facility] [address] [place], [address] Bedside Glucoseon 03-06-2025 FINGERSTICK GLU 150 mg/dL High 74-106 [facility] Comment on above: Result Comment: VI MONTEJO OF PATIENT CARE PER NURSING PROTOCOL Performed By: #### L 501.080 ####[facility] [address] [place], [address] FINGERSTICK GLU 155 mg/dL High [facility] Comment on above: Result Comment: VI GEMENT OF PATIENT CARE PER NURSING PROTOCOL Performed By: #### L 501.080 ####[facility] [address] [place], [address] FINGERSTICK GLU 158 mg/dL High [address] [place] [address] Comment on above: Result Comment: VI GEMENT OF PATIENT CARE PER NURSING PROTOCOL Performed By: #### L 501.080 ####[facility] [address] [place], [address] FINGERSTICK GLU 175 mg/dL High [address] [place] [address] Comment on above: Result Comment: VI GEMENT OF PATIENT CARE PER NURSING PROTOCOL Performed By: #### L 501.080 ####[facility] [address] [place], [address] FINGERSTICK GLU 187 mg/dL High [address] [place] [address] Comment on above: Result Comment: VI GEMENT OF PATIENT CARE PER NURSING PROTOCOL Performed By: #### L 501.080 ####[facility] [address] [place], [address] CBC W/Diff, Automatedon 06-1 Anisocytosis Ql (Bld) 2+ Normal [facility] Comment on above: Performed By: #### L 500.2500, L100.0100 ####[facility] [address] [place], [address] MICROCYTIC 2+ Normal [facility] Comment on above: Performed By: #### L 500.2500, L100.0100 ####[facility] [address] [place], [address] OVALOCYTE RARE Normal [facility] Comment on above: Performed By: #### L 500.2500, L100.0100 ####[facility] [address], [address] SMEAR COMMENT SCANNED Normal [facility] Comment on above: Performed By: #### L 500.2500, L100.0100 ####[facility] [address] [place], [address] EGD Reporton 03-06-2025 EGD Report Normal [facility] Small Bowel Series Onlyon Small Bowel Series Only Normal [facility] Basic Metabolic Profile (BMP )on 03-05-2025 BUN/CRE 32.6 RATIO High 10-20 [facility] Comment on above: Performed By: #### L 100.0100, L500.2500 ####[facility] [address] [place], [address] Calcium [Mass/Vol] 9.3 mg/dL Normal 7.6-11.0 [facility] Comment on above: Performed By: #### L 100.0100, L500.2500 ####[facility] [address] [place], [address] Chloride [Moles/Vol] 104 mmol/L Normal 98-108 [facility] Comment on above: Performed By: #### L 100.0100, L500.2500 ####[facility] [address] [place], [address] CO2 [Moles/Vol] 18.4 mmol/L Low 21.0-32.0 [facility] Comment on above: Performed By: #### L 100.0100, L500.2500 ####[facility] [address] [place], [address] Creatinine [Mass/Vol] 1.52 mg/dL High 0.70-1.20 [facility] Comment on above: Performed By: #### L 100.0100, L500.2500 ####[facility] [address] [place], [address] ECRCL 36.68 ml/min Low 50-250 [facility] Comment on above: Performed By: #### L 100.0100, L500.2500 ####[facility] [address], [address] GAP 20 High 5-15 [facility] Comment on above: Performed By: #### L 100.0100, L500.2500 ####[facility] [address] [place], [address] GFR/1.73 sq M.predicted among non-blacks MDRD (S/P/Bld) [Vol rate/Area] 35 mL/min/{1.73_m2} Low >60 [facility] Comment on above: Result Comment: mL/m in/1.73m2 CKD-EPI Creatinine Equation (2020) Performed By: #### L 100.0100, L500.2500 ####[facility] [address] [place], [address] Glucose [Mass/Vol] 170 mg/dL High 70-99 [facility] Comment on above: Performed By: #### L 100.0100, L500.2500 ####[facility] [address] [place], [address] Potassium [Moles/Vol] 3.8 mmol/L Normal 3.3-5.1 [facility] Comment on above: Performed By: #### L 100.0100, L500.2500 ####[facility] [address] [place], [address] Sodium [Moles/Vol] 143 mmol/L Normal 133-145 [facility] Comment on above: Performed By: #### L 100.0100, L500.2500 ####[facility] [address], [address] Urea nitrogen [Mass/Vol] 50 mg/dL High 4-19 [facility] Comment on above: Performed By: #### L 100.0100, L500.2500 ####[facility] [address] [place], [address] Bedside Glucoseon 03-05-2025 FINGERSTICK GLU 179 mg/dL High 74-106 [facility] Comment on above: Result Comment: VI GEMENT OF PATIENT CARE PER NURSING PROTOCOL Performed By: #### L 501.080 ####[facility] [address] [place], [address] FINGERSTICK GLU 200 mg/dL High 74-106 [facility] Comment on above: Result Comment: VI GEMENT OF PATIENT CARE PER NURSING PROTOCOL Performed By: #### L 501.080 ####[facility] [address] [place], [address] FINGERSTICK GLU 132 mg/dL High 74-106 [facility] Comment on above: Result Comment: VI GEMENT OF PATIENT CARE PER NURSING PROTOCOL Performed By: #### L 501.080 ####[facility] [address] [place], [address] FINGERSTICK GLU 141 mg/dL High 74-106 [facility] Comment on above: Result Comment: VI GEMENT OF PATIENT CARE PER NURSING PROTOCOL Performed By: #### L 501.080 ####[facility] [address] [place], [address] CBC W/Diff, Automatedon Anisocytosis Ql (Bld) 1+ Normal [facility] Comment on above: Performed By: #### L 100.0100, L500.2500 ####[facility] [address] 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, [address] Calcium [Mass/Vol] 9.2 mg/dL Normal 7.6-11.0 [facility] Comment on above: Performed By: #### L 500.2500, L100.0100 ####[facility] [address] [place], [address] Chloride [Moles/Vol] 103 mmol/L Normal 98-108 [facility] Comment on above: Performed By: #### L 500.2500, L100.0100 ####[facility] [address] [place], [address] CO2 [Moles/Vol] 21.1 mmol/L Normal 21.0-32.0 [facility] Comment on above: Performed By: #### L 500.2500, L100.0100 ####[facility] [address] [place], [address] Creatinine [Mass/Vol] 1.70 mg/dL High 0.70-1.20 [facility] Comment on above: Performed By: #### L 500.2500, L100.0100 ####[facility] [address] [place], [address] ECRCL 33.16 ml/min Low 50-250 [facility] Comment on above: Performed By: #### L 500.2500, L100.0100 ####[facility] [address] [place], [address] GAP 18 High 5-15 [facility] Comment on above: Performed By: #### L 500.2500, L100.0100 ####[facility] [address] [place], [address] GFR/1.73 sq M.predicted among non-blacks MDRD (S/P/Bld) [Vol rate/Area] 31 mL/min/{1.73_m2} Low >60 [facility] Comment on above: Result Comment: mL/m in/1.73m2 CKD-EPI Creatinine Equation (2020) Performed By: #### L 500.2500, L100.0100 ####[facility] [address] [place], [address] Glucose [Mass/Vol] 142 mg/dL High 70-99 [facility] Comment on above: Performed By: #### L 500.2500, L100.0100 ####[facility] [address] [place], [address] Potassium [Moles/Vol] 3.2 mmol/L Low 3.3-5.1 [facility] Comment on above: Performed By: #### L 500.2500, L100.0100 ####[facility] [address] [place], [address] Sodium [Moles/Vol] 142 mmol/L Normal 133-145 [facility] Comment on above: Performed By: #### L 500.2500, L100.0100 ####[facility] [address] [place], [address] Urea nitrogen [Mass/Vol] 49 mg/dL High 4-19 [facility] Comment on above: Performed By: #### L 500.2500, L100.0100 ####[facility] [address] [place], [address] Bedside Glucoseon 03-04-2025 FINGERSTICK GLU 143 mg/dL High 74-106 [facility] Comment on above: Result Comment: Dr Shawn padilla FollowedMANAGEMENT OF PATIENT CARE PER NURSING PROTOCOL Performed By: #### L 501.080 ####[facility] [address] [place], [address] FINGERSTICK GLU 158 mg/dL High 74-106 [facility] Comment on above: Result Comment: Insu neo GivenMANAGEMENT OF PATIENT CARE PER NURSING PROTOCOL Performed By: #### L 501.080 ####[facility] [address] [place], [address] FINGERSTICK GLU 141 mg/dL High 74-106 [facility] Comment on above: Result Comment: VI GEMENT OF PATIENT CARE PER NURSING PROTOCOL Performed By: #### L 501.080 ####[facility] [address] [place], [address] CBC W/Diff, Automatedon 06-0 8-2024 Absolute Lymph 1.12 X10 3/uL Normal 0.83-4.51 [facility] Comment on above: Performed By: #### L 500.2500, L100.0100 ####[facility] [address] [place], [address] Absolute Neut 7.0 X10 3/uL Normal 2.0-7.7 [facility] Comment on above: Performed By: #### L 500.2500, L100.0100 ####[facility] [address] [place], [address] Basophils/100 WBC (Bld) 1.5 % High 0-1 [facility] Comment on above: Performed By: #### L 500.2500, L100.0100 ####[facility] [address] [place], [address] Eosinophils/100 WBC (Bld) 3.5 % Normal 0-5 [facility] Comment on above: Performed By: #### L 500.2500, L100.0100 ####[facility] [address] [place], [address] Erythrocyte distribution width (RBC) [Ratio] 19.7 % High 11.6-14.6 [facility] Comment on above: Performed By: #### L 500.2500, L100.0100 ####[facility] [address] [place], [address] Hematocrit (Bld) [Volume fraction] 31.1 % Low 37-47 [facility] Comment on above: Performed By: #### L 500.2500, L100.0100 ####[facility] [address] [place], [address] Hemoglobin (Bld) [Mass/Vol] 9.2 g/dL Low 12.0-15.0 [facility] Comment on above: Performed By: #### L 500.2500, L100.0100 ####[facility] [address] [place], [address] IG% 0.400 Normal 0.0-0.9 [facility] Comment on above: Result Comment: IG% - Immature Granulocytes (promyelocytes, myelocytes andmetamyelocytes) > 1% indicates that a LEFT SHIFT is Present. Performed By: #### L 500.2500, L100.0100 ####[facility] [address] [place], [address] Lymphocytes/100 WBC (Bld) 11.8 % Low 19-41 [facility] Comment on above: Performed By: #### L 500.2500, L100.0100 ####[facility] [address] [place], [address] MCH (RBC) [Entitic mass] 21.5 pg Low 27.0-32.0 [facility] Comment on above: Performed By: #### L 500.2500, L100.0100 ####[facility] [address] [place], [address] MCHC (RBC) [Mass/Vol] 29.6 g/dL Low 32-36 [facility] Comment on above: Performed By: #### L 500.2500, L100.0100 ####[facility] [address] [place], [address] MCV (RBC) [Entitic vol] 72.8 fL Low 81-99 [facility] Comment on above: Performed By: #### L 500.2500, L100.0100 ####[facility] [address] [place], [address] Monocytes/100 WBC (Bld) 9.2 % Normal 0-10 [facility] Comment on above: Performed By: #### L 500.2500, L100.0100 ####[facility] [address] [place], [address] Neutrophils/100 WBC (Bld) 73.6 % High 47-70 [facility] Comment on above: Performed By: #### L 500.2500, L100.0100 ####[facility] [address] [place], [address] Nucleated RBC (Bld) [#/Vol] 0 10*3/uL Normal 0-5 [facility] Comment on above: Performed By: #### L 500.2500, L100.0100 ####[facility] [address] [place], [address] Platelet mean volume (Bld) [Entitic vol] 9.2 fL Normal 6.2-12.0 [facility] Comment on above: Performed By: #### L 500.2500, L100.0100 ####[facility] [address] [place], [address] Platelets (Bld) [#/Vol] 330 10*3/uL Normal 150-450 [facility] Comment on above: Performed By: #### L 500.2500, L100.0100 ####[facility] [address] [place], [address] RBC (Bld) [#/Vol] 4.27 10*6/uL Normal 4.2-5.4 [facility] Comment on above: Performed By: #### L 500.2500, L100.0100 ####[facility] [address] [place], [address] RDW SD 50.4 fl High 35.1-43.9 [facility] Comment on above: Performed By: #### L 500.2500, L100.0100 ####[facility] [address] [place], [address] WBC (Bld) [#/Vol] 9.5 10*3/uL Normal 4.4-11.0 [facility] Comment on above: Performed By: #### L 500.2500, L100.0100 ####[facility] [address] [place], [address] Fibrinogenon 03-04-2025 FIBRINOGEN 590 mg/dl High 203-444 [facility] Comment on above: Performed By: #### L 300.4700, L300.3900, L300.4310 ####[facility] [address] [place], [address] Partial Thromboplast Timeon 03-04-2025 aPTT Coag (Bld) [Time] 21.7 s Low 24.1-36.2 [facility] Comment on above: Performed By: #### L 300.4700, L300.3900, L300.4310 ####[facility] [address] [place], [address] Prothrombin Time w/INRon INR Coag (PPP) [Relative time] 1.5 {INR} Normal [facility] Comment on above: Performed By: #### L 300.4700, L300.3900, L300.4310 ####[facility] [address] [place], [address] PT Coag (PPP) [Time] 18.7 s High 11.7-14.9 [facility] Comment on above: Performed By: #### L 300.4700, L300.3900, L300.4310 ####[facility] [address] [place], [address] Transvaginal Non-on 03-04-2025 Transvaginal Non- Normal [facility] Basic Metabolic Profile (BMP )on 03-03-2025 BUN/CRE 25.0 RATIO High 10-20 [facility] Comment on above: Performed By: #### L 500.2500, L100.0100 ####[facility] [address] [place], [address] Calcium [Mass/Vol] 9.2 mg/dL Normal 7.6-11.0 [facility] Comment on above: Performed By: #### L 500.2500, L100.0100 ####[facility] [address] [place], [address] Chloride [Moles/Vol] 101 mmol/L Normal 98-108 [facility] Comment on above: Performed By: #### L 500.2500, L100.0100 ####[facility] [address] [place], [address] CO2 [Moles/Vol] 18.1 mmol/L Low 21.0-32.0 [facility] Comment on above: Performed By: #### L 500.2500, L100.0100 ####[facility] [address] [place], [address] Creatinine [Mass/Vol] 1.78 mg/dL High 0.70-1.20 [facility] Comment on above: Performed By: #### L 500.2500, L100.0100 ####[facility] [address] [place], [address] ECRCL 31.67 ml/min Low 50-250 [facility] Comment on above: Performed By: #### L 500.2500, L100.0100 ####[facility] [address] [place], [address] GAP 20 High 5-15 [facility] Comment on above: Performed By: #### L 500.2500, L100.0100 ####[facility] [address] [place], [address] GFR/1.73 sq M.predicted among non-blacks MDRD (S/P/Bld) [Vol rate/Area] 29 mL/min/{1.73_m2} Low >60 [facility] Comment on above: Result Comment: mL/m in/1.73m2 CKD-EPI Creatinine Equation (2020) Performed By: #### L 500.2500, L100.0100 ####[facility] [address] [place], [address] Glucose [Mass/Vol] 159 mg/dL High 70-99 [facility] Comment on above: Performed By: #### L 500.2500, L100.0100 ####[facility] [address] [place], [address] Potassium [Moles/Vol] 3.3 mmol/L Normal 3.3-5.1 [facility] Comment on above: Performed By: #### L 500.2500, L100.0100 ####[facility] [address] [place], [address] Sodium [Moles/Vol] 140 mmol/L Normal 133-145 [facility] Comment on above: Performed By: #### L 500.2500, L100.0100 ####[facility] [address] [place], [address] Urea nitrogen [Mass/Vol] 45 mg/dL High 4-19 [facility] Comment on above: Performed By: #### L 500.2500, L100.0100 ####[facility] [address] [place], [address] Bedside Glucoseon 06--2024 FINGERSTICK GLU 162 mg/dL High 74-106 [facility] Comment on above: Result Comment: VI GEMENT OF PATIENT CARE PER NURSING PROTOCOL Performed By: #### L 501.080 ####[facility] [address] [place], [address] FINGERSTICK GLU 165 mg/dL High 74-106 [facility] Comment on above: Result Comment: Dr Shawn padilla FollowedInsulin GivenMANAGEMENT OF PATIENT CARE PER NURSING PROTOCOL Performed By: #### L 501.080 ####[facility] [address] [place], [address] FINGERSTICK GLU 145 mg/dL High 74-106 [facility] Comment on above: Result Comment: VI GEMZOEY OF PATIENT CARE PER NURSING PROTOCOL Performed By: #### L 501.080 ####[facility] [address] [place], [address] CBC W/Diff, Automatedon 06-0 7-2024 Absolute Lymph 1.20 X10 3/uL Normal 0.83-4.51 [facility] Comment on above: Performed By: #### L 500.2500, L100.0100 ####[facility] [address] [place], [address] Absolute Neut 7.5 X10 3/uL Normal 2.0-7.7 [facility] Comment on above: Performed By: #### L 500.2500, L100.0100 ####[facility] [address] [place], [address] Basophils/100 WBC (Bld) 1.0 % Normal 0-1 [facility] Comment on above: Performed By: #### L 500.2500, L100.0100 ####[facility] [address] [place], [address] Eosinophils/100 WBC (Bld) 4.1 % Normal 0-5 [facility] Comment on above: Performed By: #### L 500.2500, L100.0100 ####[facility] [address] [place], [address] Erythrocyte distribution width (RBC) [Ratio] 19.5 % High 11.6-14.6 [facility] Comment on above: Performed By: #### L 500.2500, L100.0100 ####[facility] [address] [place], [address] Hematocrit (Bld) [Volume fraction] 30.3 % Low 37-47 [facility] Comment on above: Performed By: #### L 500.2500, L100.0100 ####[facility] [address] [place], [address] Hemoglobin (Bld) [Mass/Vol] 8.9 g/dL Low 12.0-15.0 [facility] Comment on above: Performed By: #### L 500.2500, L100.0100 ####[facility] [address] [place], [address] IG% 0.500 Normal 0.0-0.9 [facility] Comment on above: Result Comment: IG% - Immature Granulocytes (promyelocytes, myelocytes andmetamyelocytes) > 1% indicates that a LEFT SHIFT is Present. Performed By: #### L 500.2500, L100.0100 ####[facility] [address] [place], [address] Lymphocytes/100 WBC (Bld) 11.7 % Low 19-41 [facility] Comment on above: Performed By: #### L 500.2500, L100.0100 ####[facility] [address] [place], [address] MCH (RBC) [Entitic mass] 21.8 pg Low 27.0-32.0 [facility] Comment on above: Performed By: #### L 500.2500, L100.0100 ####[facility] [address] [place], [address] MCHC (RBC) [Mass/Vol] 29.4 g/dL Low 32-36 [facility] Comment on above: Performed By: #### L 500.2500, L100.0100 ####[facility] [address] [place], [address] MCV (RBC) [Entitic vol] 74.3 fL Low 81-99 [facility] Comment on above: Performed By: #### L 500.2500, L100.0100 ####[facility] [address] [place], [address] Monocytes/100 WBC (Bld) 10.0 % Normal 0-10 [facility] Comment on above: Performed By: #### L 500.2500, L100.0100 ####[facility] [address] [place], [address] Neutrophils/100 WBC (Bld) 72.7 % High 47-70 [facility] Comment on above: Performed By: #### L 500.2500, L100.0100 ####[facility] [address] [place], [address] Nucleated RBC (Bld) [#/Vol] 0 10*3/uL Normal 0-5 [facility] Comment on above: Performed By: #### L 500.2500, L100.0100 ####[facility] [address] [place], [address] Platelet mean volume (Bld) [Entitic vol] 9.1 fL Normal 6.2-12.0 [facility] Comment on above: Performed By: #### L 500.2500, L100.0100 ####[facility] [address], [address] Platelets (Bld) [#/Vol] 365 10*3/uL Normal 150-450 [facility] Comment on above: Performed By: #### L 500.2500, L100.0100 ####[facility] [address] [place], [address] RBC (Bld) [#/Vol] 4.08 10*6/uL Low 4.2-5.4 [facility] Comment on above: Performed By: #### L 500.2500, L100.0100 ####[facility] [address] [place], [address] RDW SD 51.2 fl High 35.1-43.9 [facility] Comment on above: Performed By: #### L 500.2500, L100.0100 ####[facility] [address] [place], [address] WBC (Bld) [#/Vol] 10.3 10*3/uL Normal 4.4-11.0 [facility] Comment on above: Performed By: #### L 500.2500, L100.0100 ####[facility] [address] [place], [address] ENTERIC PATHOGEN PANEL STOOL on 03-03-2025 EP PANEL Normal [facility] Comment on above: Performed By: #### M 100.6796, M100.0605, M100.637, M100.6795 ####[facility] [address] [place], [address] HH, Hemoglobin AND Hematocri ton 03-03-2025 Hematocrit (Bld) [Volume fraction] 34.1 % Low 37-47 [facility] Comment on above: Performed By: #### L 100.0600 ####[facility] [address] [place], [address] Hemoglobin (Bld) [Mass/Vol] 10.0 g/dL Low 12.0-15.0 [facility] Comment on above: Performed By: #### L 100.0600 ####[facility] [address] [place], [address] Abdomen/Pel W ORAL Cont Only on 03-02-2025 Abdomen/Pel W ORAL Cont Only Normal [facility] Basic Metabolic Profile (BMP )on 03-02-2025 BUN/CRE 21.3 RATIO High 10-20 [facility] Comment on above: Performed By: #### L 500.2500, L100.0100 ####[facility] [address] [place], [address] Calcium [Mass/Vol] 9.2 mg/dL Normal 7.6-11.0 [facility] Comment on above: Performed By: #### L 500.2500, L100.0100 ####[facility] [address] [place], [address] Chloride [Moles/Vol] 101 mmol/L Normal 98-108 [facility] Comment on above: Performed By: #### L 500.2500, L100.0100 ####[facility] [address] [place], [address] CO2 [Moles/Vol] 15.4 mmol/L Low 21.0-32.0 [facility] Comment on above: Performed By: #### L 500.2500, L100.0100 ####[facility] [address], [address] Creatinine [Mass/Vol] 1.67 mg/dL High 0.70-1.20 [facility] Comment on above: Performed By: #### L 500.2500, L100.0100 ####[facility] [address] [place], [address] ECRCL 33.77 ml/min Low 50-250 [facility] Comment on above: Performed By: #### L 500.2500, L100.0100 ####[facility] [address] [place], [address] GAP 25 High 5-15 [facility] Comment on above: Performed By: #### L 500.2500, L100.0100 ####[facility] [address] [place], [address] GFR/1.73 sq M.predicted among non-blacks MDRD (S/P/Bld) [Vol rate/Area] 32 mL/min/{1.73_m2} Low >60 [facility] Comment on above: Result Comment: mL/m in/1.73m2 CKD-EPI Creatinine Equation (2020) Performed By: #### L 500.2500, L100.0100 ####[facility] [address] [place], [address] Glucose [Mass/Vol] 144 mg/dL High 70-99 [facility] Comment on above: Performed By: #### L 500.2500, L100.0100 ####[facility] [address] [place], [address] Potassium [Moles/Vol] 3.6 mmol/L Normal 3.3-5.1 [facility] Comment on above: Performed By: #### L 500.2500, L100.0100 ####[facility] [address] [place], [address] Sodium [Moles/Vol] 142 mmol/L Normal 133-145 [facility] Comment on above: Performed By: #### L 500.2500, L100.0100 ####[facility] [address] [place], [address] Urea nitrogen [Mass/Vol] 36 mg/dL High 4-19 [facility] Comment on above: Performed By: #### L 500.2500, L100.0100 ####[facility] [address] [place], [address] Bedside Glucoseon 03-02-2025 FINGERSTICK GLU 165 mg/dL High 74-106 [facility] Comment on above: Result Comment: VI GEMENT OF PATIENT CARE PER NURSING PROTOCOL Performed By: #### L 501.080 ####[facility] [address] [place], [address] FINGERSTICK GLU 167 mg/dL High 74-106 [facility] Comment on above: Result Comment: VI GEMENT OF PATIENT CARE PER NURSING PROTOCOL Performed By: #### L 501.080 ####[facility] [address] [place], [address] FINGERSTICK GLU 139 mg/dL High 74-106 [facility] Comment on above: Result Comment: VI GEMENT OF PATIENT CARE PER NURSING PROTOCOL Performed By: #### L 501.080 ####[facility] [address] [place], [address] CBC W/Diff, Automatedon 06- Absolute Lymph 1.02 X10 3/uL Normal 0.83-4.51 [facility] Comment on above: Performed By: #### L 500.2500, L100.0100 ####[facility] [address] [place], [address] Absolute Neut 8.8 X10 3/uL High 2.0-7.7 [facility] Comment on above: Performed By: #### L 500.2500, L100.0100 ####[facility] [address] [place], [address] Basophils/100 WBC (Bld) 1.0 % Normal 0-1 [facility] Comment on above: Performed By: #### L 500.2500, L100.0100 ####[facility] [address] [place], [address] Eosinophils/100 WBC (Bld) 1.9 % Normal 0-5 [facility] Comment on above: Performed By: #### L 500.2500, L100.0100 ####[facility] [address] [place], [address] Erythrocyte distribution width (RBC) [Ratio] 19.6 % High 11.6-14.6 [facility] Comment on above: Performed By: #### L 500.2500, L100.0100 ####[facility] [address] [place], [address] Hematocrit (Bld) [Volume fraction] 30.6 % Low 37-47 [facility] Comment on above: Performed By: #### L 500.2500, L100.0100 ####[facility] [address] [place], [address] Hemoglobin (Bld) [Mass/Vol] 8.9 g/dL Low 12.0-15.0 [facility] Comment on above: Performed By: #### L 500.2500, L100.0100 ####[facility] [address] [place], [address] IG% 0.500 Normal 0.0-0.9 [facility] Comment on above: Result Comment: IG% - Immature Granulocytes (promyelocytes, myelocytes andmetamyelocytes) > 1% indicates that a LEFT SHIFT is Present. Performed By: #### L 500.2500, L100.0100 ####[facility] [address] [place], [address] Lymphocytes/100 WBC (Bld) 9.2 % Low 19-41 [facility] Comment on above: Performed By: #### L 500.2500, L100.0100 ####[facility] [address] [place], [address] MCH (RBC) [Entitic mass] 21.6 pg Low 27.0-32.0 [facility] Comment on above: Performed By: #### L 500.2500, L100.0100 ####[facility] [address] [place], [address] MCHC (RBC) [Mass/Vol] 29.1 g/dL Low 32-36 [facility] Comment on above: Performed By: #### L 500.2500, L100.0100 ####[facility] [address] [place], [address] MCV (RBC) [Entitic vol] 74.3 fL Low 81-99 [facility] Comment on above: Performed By: #### L 500.2500, L100.0100 ####[facility] [address] [place], [address] Monocytes/100 WBC (Bld) 8.5 % Normal 0-10 [facility] Comment on above: Performed By: #### L 500.2500, L100.0100 ####[facility] [address] [place], [address] Neutrophils/100 WBC (Bld) 78.9 % High 47-70 [facility] Comment on above: Performed By: #### L 500.2500, L100.0100 ####[facility] [address] [place], [address] Nucleated RBC (Bld) [#/Vol] 0 10*3/uL Normal 0-5 [facility] Comment on above: Performed By: #### L 500.2500, L100.0100 ####[facility] [address] [place], [address] Platelet mean volume (Bld) [Entitic vol] 9.5 fL Normal 6.2-12.0 [facility] Comment on above: Performed By: #### L 500.2500, L100.0100 ####[facility] [address] [place], [address] Platelets (Bld) [#/Vol] 416 10*3/uL Normal 150-450 [facility] Comment on above: Performed By: #### L 500.2500, L100.0100 ####[facility] [address] [place], [address] RBC (Bld) [#/Vol] 4.12 10*6/uL Low 4.2-5.4 [facility] Comment on above: Performed By: #### L 500.2500, L100.0100 ####[facility] [address] [place], [address] RDW SD 52.1 fl High 35.1-43.9 [facility] Comment on above: Performed By: #### L 500.2500, L100.0100 ####[facility] [address] [place], [address] WBC (Bld) [#/Vol] 11.1 10*3/uL High 4.4-11.0 [facility] Comment on above: Performed By: #### L 500.2500, L100.0100 ####[facility] [address] [place], [address] CDIFF (PCR)on 03-02-2025 CDIFF Normal [facility] Comment on above: Performed By: #### M 100.6796, M100.0605, M100.637, M100.6795 ####[facility] [address] [place], [address] Clostridium Diff Toxin/Agon 03-02-2025 CDIFF (EIA) Normal [facility] Comment on above: Performed By: #### M 100.6796, M100.0605, M100.637, M100.6795 ####[facility] [address] [place], [address] Stool Lactoferrin/WBCon 06-0 WBCST Is the patient receiving laxatives? N New/unexplained onset of 3 or more stools in past 24 hrs? Y Normal Reference Range = Negative Fecal WBC Lactoferrin A Positive: Fecal WBC Lactoferrin present A Normal [facility] Comment on above: Performed By: #### M 100.6796, M100.0605, M100.637, M100.6712 ####[facility] [address] [place], [address] Abdomen Single View (Portabl e)on 03-01-2025 Abdomen Single View (Portable) Normal [facility] Basic Metabolic Profile (BMP )on 03-01-2025 BUN/CRE 24.0 RATIO High 10-20 [facility] Comment on above: Performed By: #### L 500.2500, L503.6005 ####[facility] [address] [place], [address] Calcium [Mass/Vol] 8.6 mg/dL Normal 7.6-11.0 [facility] Comment on above: Performed By: #### L 500.2500, L503.6005 ####[facility] [address] [place], [address] Chloride [Moles/Vol] 101 mmol/L Normal 98-108 [facility] Comment on above: Performed By: #### L 500.2500, L503.6005 ####[facility] [address] [place], [address] CO2 [Moles/Vol] 12.3 mmol/L Low 21.0-32.0 [facility] Comment on above: Performed By: #### L 500.2500, L503.6005 ####[facility] [address] [place], [address] Creatinine [Mass/Vol] 2.21 mg/dL High 0.70-1.20 [facility] Comment on above: Performed By: #### L 500.2500, L503.6005 ####[facility] [address] [place], [address] ECRCL 25.59 ml/min Low 50-250 [facility] Comment on above: Performed By: #### L 500.2500, L503.6005 ####[facility] [address] [place], [address] GAP 29 High 5-15 [facility] Comment on above: Performed By: #### L 500.2500, L503.6005 ####[facility] [address] [place], [address] GFR/1.73 sq M.predicted among non-blacks MDRD (S/P/Bld) [Vol rate/Area] 23 mL/min/{1.73_m2} Low >60 [facility] Comment on above: Result Comment: mL/m in/1.73m2 CKD-EPI Creatinine Equation (2020) Performed By: #### L 500.2500, L503.6005 ####[facility] [address] [place], [address] Glucose [Mass/Vol] 160 mg/dL High 70-99 [facility] Comment on above: Performed By: #### L 500.2500, L503.6005 ####[facility] [address] [place], [address] Potassium [Moles/Vol] 3.7 mmol/L Normal 3.3-5.1 [facility] Comment on above: Performed By: #### L 500.2500, L503.6005 ####[facility] [address] [place], [address] Sodium [Moles/Vol] 142 mmol/L Normal 133-145 [facility] Comment on above: Performed By: #### L 500.2500, L503.6005 ####[facility] [address] [place], [address] Urea nitrogen [Mass/Vol] 53 mg/dL High 4-19 [facility] Comment on above: Performed By: #### L 500.2500, L503.6005 ####[facility] [address] [place], [address] BUN/CRE 24.5 RATIO High 10-20 [facility] Comment on above: Performed By: #### L 100.0100, L500.2500 ####[facility] [address] [place], [address] Calcium [Mass/Vol] 8.5 mg/dL Normal 7.6-11.0 [facility] Comment on above: Performed By: #### L 100.0100, L500.2500 ####[facility] [address] [place], [address] Chloride [Moles/Vol] 101 mmol/L Normal 98-108 [facility] Comment on above: Performed By: #### L 100.0100, L500.2500 ####[facility] [address] [place], [address] CO2 [Moles/Vol] 10.8 mmol/L Low 21.0-32.0 [facility] Comment on above: Performed By: #### L 100.0100, L500.2500 ####[facility] [address] [place], [address] Creatinine [Mass/Vol] 2.11 mg/dL High 0.70-1.20 [facility] Comment on above: Performed By: #### L 100.0100, L500.2500 ####[facility] [address] [place], [address] ECRCL 26.80 ml/min Low 50-250 [facility] Comment on above: Performed By: #### L 100.0100, L500.2500 ####[facility] [address] [place], [address] GAP 30 High 5-15 [facility] Comment on above: Performed By: #### L 100.0100, L500.2500 ####[facility] [address] [place], [address] GFR/1.73 sq M.predicted among non-blacks MDRD (S/P/Bld) [Vol rate/Area] 24 mL/min/{1.73_m2} Low >60 [facility] Comment on above: Result Comment: mL/m in/1.73m2 CKD-EPI Creatinine Equation (2020) Performed By: #### L 100.0100, L500.2500 ####[facility] [address] [place], [address] Glucose [Mass/Vol] 165 mg/dL High 70-99 [facility] Comment on above: Performed By: #### L 100.0100, L500.2500 ####[facility] [address] [place], [address] Potassium [Moles/Vol] 3.8 mmol/L Normal 3.3-5.1 [facility] Comment on above: Performed By: #### L 100.0100, L500.2500 ####[facility] [address] [place], [address] Sodium [Moles/Vol] 142 mmol/L Normal 133-145 [facility] Comment on above: Performed By: #### L 100.0100, L500.2500 ####[facility] [address] [place], [address] Urea nitrogen [Mass/Vol] 52 mg/dL High 4-19 [facility] Comment on above: Performed By: #### L 100.0100, L500.2500 ####[facility] [address] [place], [address] Bedside Glucoseon 03-01-2025 FINGERSTICK GLU 154 mg/dL High 74-106 [facility] Comment on above: Result Comment: VI MONTEJO OF PATIENT CARE PER NURSING PROTOCOL Performed By: #### L 501.080 ####[facility] [address] [place], [address] CBC W/Diff, Automatedon 06-0 5-2025 Absolute Lymph 1.06 X10 3/uL Normal 0.83-4.51 [facility] Comment on above: Performed By: #### L 100.0100, L500.2500 ####[facility] [address] [place], [address] Absolute Neut 11.1 X10 3/uL High 2.0-7.7 [facility] Comment on above: Performed By: #### L 100.0100, L500.2500 ####[facility] [address] [place], [address] Basophils/100 WBC (Bld) 0.7 % Normal 0-1 [facility] Comment on above: Performed By: #### L 100.0100, L500.2500 ####[facility] [address] [place], [address] Eosinophils/100 WBC (Bld) 0.4 % Normal 0-5 [facility] Comment on above: Performed By: #### L 100.0100, L500.2500 ####[facility] [address] [place], [address] Erythrocyte distribution width (RBC) [Ratio] 19.2 % High 11.6-14.6 [facility] Comment on above: Performed By: #### L 100.0100, L500.2500 ####[facility] [address] [place], [address] Hematocrit (Bld) [Volume fraction] 30.4 % Low 37-47 [facility] Comment on above: Performed By: #### L 100.0100, L500.2500 ####[facility] [address] [place], [address] Hemoglobin (Bld) [Mass/Vol] 8.7 g/dL Low 12.0-15.0 [facility] Comment on above: Performed By: #### L 100.0100, L500.2500 ####[facility] [address] [place], [address] IG% 0.700 Normal 0.0-0.9 [facility] Comment on above: Result Comment: IG% - Immature Granulocytes (promyelocytes, myelocytes andmetamyelocytes) > 1% indicates that a LEFT SHIFT is Present. Performed By: #### L 100.0100, L500.2500 ####[facility] [address] [place], [address] Lymphocytes/100 WBC (Bld) 7.9 % Low 19-41 [facility] Comment on above: Performed By: #### L 100.0100, L500.2500 ####[facility] [address] [place], [address] MCH (RBC) [Entitic mass] 21.8 pg Low 27.0-32.0 [facility] Comment on above: Performed By: #### L 100.0100, L500.2500 ####[facility] [address] [place], [address] MCHC (RBC) [Mass/Vol] 28.6 g/dL Low 32-36 [facility] Comment on above: Performed By: #### L 100.0100, L500.2500 ####[facility] [address] [place], [address] MCV (RBC) [Entitic vol] 76.0 fL Low 81-99 [facility] Comment on above: Performed By: #### L 100.0100, L500.2500 ####[facility] [address] [place], [address] Monocytes/100 WBC (Bld) 6.7 % Normal 0-10 [facility] Comment on above: Performed By: #### L 100.0100, L500.2500 ####[facility] [address] [place], [address] Neutrophils/100 WBC (Bld) 83.6 % High 47-70 [facility] Comment on above: Performed By: #### L 100.0100, L500.2500 ####[facility] [address] [place], [address] Nucleated RBC (Bld) [#/Vol] 0 10*3/uL Normal 0-5 [facility] Comment on above: Performed By: #### L 100.0100, L500.2500 ####[facility] [address] [place], [address] Platelet mean volume (Bld) [Entitic vol] 9.8 fL Normal 6.2-12.0 [facility] Comment on above: Performed By: #### L 100.0100, L500.2500 ####[facility] [address] [place], [address] Platelets (Bld) [#/Vol] 464 10*3/uL High 150-450 [facility] Comment on above: Performed By: #### L 100.0100, L500.2500 ####[facility] [address] [place], [address] RBC (Bld) [#/Vol] 4.00 10*6/uL Low 4.2-5.4 [facility] Comment on above: Performed By: #### L 100.0100, L500.2500 ####[facility] [address] [place], [address] RDW SD 52.8 fl High 35.1-43.9 [facility] Comment on above: Performed By: #### L 100.0100, L500.2500 ####[facility] [address] [place], [address] WBC (Bld) [#/Vol] 13.3 10*3/uL High 4.4-11.0 [facility] Comment on above: Performed By: #### L 100.0100, L500.2500 ####[facility] [address] [place], [address] Lactic Acidon 03-01-2025 Lactate [Moles/Vol] mmol/L Normal 0.0-2.0 [facility] Comment on above: Order Comment: Y Performed By: #### L 500.2500, L503.6005 ####[facility] [address] [place], [address] Basic Metabolic Profile (BMP )on 02-28-2025 BUN/CRE 27.8 RATIO High 10-20 [facility] Comment on above: Performed By: #### L 500.2500, L100.0100 ####[facility] [address] [place], [address] Calcium [Mass/Vol] 8.7 mg/dL Normal 7.6-11.0 [facility] Comment on above: Performed By: #### L 500.2500, L100.0100 ####[facility] [address] [place], [address] Chloride [Moles/Vol] 101 mmol/L Normal 98-108 [facility] Comment on above: Performed By: #### L 500.2500, L100.0100 ####[facility] [address] [place], [address] CO2 [Moles/Vol] 18.2 mmol/L Low 21.0-32.0 [facility] Comment on above: Performed By: #### L 500.2500, L100.0100 ####[facility] [address] [place], [address] Creatinine [Mass/Vol] 1.57 mg/dL High 0.70-1.20 [facility] Comment on above: Performed By: #### L 500.2500, L100.0100 ####[facility] [address] [place], [address] ECRCL 36.63 ml/min Low 50-250 [facility] Comment on above: Performed By: #### L 500.2500, L100.0100 ####[facility] [address] [place], [address] GAP 19 High 5-15 [facility] Comment on above: Performed By: #### L 500.2500, L100.0100 ####[facility] [address] [place], [address] GFR/1.73 sq M.predicted among non-blacks MDRD (S/P/Bld) [Vol rate/Area] 34 mL/min/{1.73_m2} Low >60 [facility] Comment on above: Result Comment: mL/m in/1.73m2 CKD-EPI Creatinine Equation (2020) Performed By: #### L 500.2500, L100.0100 ####[facility] [address] [place], [address] Glucose [Mass/Vol] 91 mg/dL Normal 70-99 [facility] Comment on above: Performed By: #### L 500.2500, L100.0100 ####[facility] [address] [place], [address] Potassium [Moles/Vol] 4.1 mmol/L Normal 3.3-5.1 [facility] Comment on above: Performed By: #### L 500.2500, L100.0100 ####[facility] [address] [place], [address] Sodium [Moles/Vol] 139 mmol/L Normal 133-145 [facility] Comment on above: Performed By: #### L 500.2500, L100.0100 ####[facility] [address] [place], [address] Urea nitrogen [Mass/Vol] 44 mg/dL High 4-19 [facility] Comment on above: Performed By: #### L 500.2500, L100.0100 ####[facility] [address] [place], [address] Bedside Glucoseon 02-28-2025 FINGERSTICK GLU 157 mg/dL High 74-106 [facility] Comment on above: Result Comment: VI GEMENT OF PATIENT CARE PER NURSING PROTOCOL Performed By: #### L 501.080 ####[facility] [address] [place], [address] FINGERSTICK GLU 115 mg/dL High 74-106 [facility] Comment on above: Result Comment: VI GEMENT OF PATIENT CARE PER NURSING PROTOCOL Performed By: #### L 501.080 ####[facility] [address] [place], [address] FINGERSTICK GLU 88 mg/dL Normal 74-106 [facility] Comment on above: Result Comment: VI GEMENT OF PATIENT CARE PER NURSING PROTOCOL Performed By: #### L 501.080 ####[facility] [address] [place], [address] FINGERSTICK GLU 96 mg/dL Normal 74-106 [facility] Comment on above: Result Comment: VI GEMENT OF PATIENT CARE PER NURSING PROTOCOL Performed By: #### L 501.080 ####[facility] [address] [place], [address] [facility] by [facility] 025 Base excess Calc (Bld) [Moles/Vol] -8 mmol/L Low -2 to +2 [facility] Comment on above: Order Comment: Resul ts manually entered by BRIAN and verified by Elton 02/28/2025 @ 1538 Performed By: #### L 9000.0800 ####[facility] [address] [place], [address] CO2 [Moles/Vol] 19 mmol/L Normal [facility] Comment on above: Order Comment: Resul ts manually entered by BRIAN and verified by EBOLESon 02/28/2025 @ 1538 Performed By: #### L 9000.0800 ####[facility] [address] [place], [address] SO2 91 Low 95-99 [facility] Comment on above: Order Comment: Resul ts manually entered by BRIAN and verified by EBOLESon 02/28/2025 @ 1538 Performed By: #### L 9000.0800 ####[facility] [address] [place], [address] DANIEL TEST Positive Normal [facility] Comment on above: Order Comment: Resul ts manually entered by BRIAN and verified by EBOLESon 02/28/2025 @ 1538 Performed By: #### L 9000.0800 ####[facility] [address] [place], [address] Blood Gas Type ART Normal [facility] Comment on above: Order Comment: Resul ts manually entered by BRIAN and verified by EBOLESon 02/28/2025 @ 1538 Performed By: #### L 9000.0800 ####[facility] [address] [place], [address] Comment SBT X1 HR Normal [facility] Comment on above: Order Comment: Resul ts manually entered by BRIAN and verified by EBOLESon 02/28/2025 @ 1538 Performed By: #### L 9000.0800 ####[facility] [address] [place], [address] FI02 21.0 Normal [facility] Comment on above: Order Comment: Resul ts manually entered by BRIAN and verified by EBOLESon 02/28/2025 @ 1538 Performed By: #### L 9000.0800 ####[facility] [address] [place], [address] HCO3 (Bld) [Moles/Vol] 17.8 mmol/L Low 22-26 [facility] Comment on above: Order Comment: Resul ts manually entered by BRIAN and verified by EBPush Computingon 02/28/2025 @ 1538 Performed By: #### L 9000.0800 ####[facility] [address] [place], [address] Mode SPONT Normal [facility] Comment on above: Order Comment: Resul ts manually entered by BRIAN and verified by EBOLESon 02/28/2025 @ 1538 Performed By: #### L 9000.0800 ####[facility] [address] [place], [address] pCO2 31.4 mmHg Low 35-45 [facility] Comment on above: Order Comment: Resul ts manually entered by BRIAN and verified by EBOLESon 02/28/2025 @ 1538 Performed By: #### L 9000.0800 ####[facility] [address] [place], [address] PEEP 5 Normal [facility] Comment on above: Order Comment: Resul ts manually entered by BRIAN and verified by EBOLESon 02/28/2025 @ 1538 Performed By: #### L 9000.0800 ####[facility] [address] [place], [address] pH (Bld) 7.36 [pH] Normal 7.35-7.45 [facility] Comment on above: Order Comment: Resul ts manually entered by Mimosa SystemsADIA and verified by EBOLESon 02/28/2025 @ 1538 Performed By: #### L 9000.0800 ####[facility] [address] [place], [address] PO2 62 mmHG Low 75-100 [facility] Comment on above: Order Comment: Resul ts manually entered by BRIAN and verified by EBPush Computingon 02/28/2025 @ 1538 Performed By: #### L 9000.0800 ####[facility] [address] [place], [address] PS 5 Normal [facility] Comment on above: Order Comment: Resul ts manually entered by BRIAN and verified by EBOLESon 02/28/2025 @ 1538 Performed By: #### L 9000.0800 ####[facility] [address] [place], [address] Results To NISHANT Normal [facility] Comment on above: Order Comment: Resul ts manually entered by BRIAN and verified by EBPush Computingon 02/28/2025 @ 1538 Performed By: #### L 9000.0800 ####[facility] [address] [place], [address] SITE R RADIAL Normal [facility] Comment on above: Order Comment: Resul ts manually entered by BRIAN and verified by EBPush [employer]on 02/28/2025 @ 1538 Performed By: #### L 9000.0800 ####[facility] [address] [place], [address] CBC W/Diff, Automatedon 06-0 Absolute Lymph 0.89 X10 3/uL Normal 0.83-4.51 [facility] Comment on above: Performed By: #### L 500.2500, L100.0100 ####[facility] [address] [place], [address] Absolute Neut 6.5 X10 3/uL Normal 2.0-7.7 [facility] Comment on above: Performed By: #### L 500.2500, L100.0100 ####[facility] [address] [place], [address] Basophils/100 WBC (Bld) 1.2 % High 0-1 [facility] Comment on above: Performed By: #### L 500.2500, L100.0100 ####[facility] [address] [place], [address] Eosinophils/100 WBC (Bld) 2.0 % Normal 0-5 [facility] Comment on above: Performed By: #### L 500.2500, L100.0100 ####[facility] [address] [place], [address] Erythrocyte distribution width (RBC) [Ratio] 18.8 % High 11.6-14.6 [facility] Comment on above: Performed By: #### L 500.2500, L100.0100 ####[facility] [address] [place], [address] Hematocrit (Bld) [Volume fraction] 30.1 % Low 37-47 [facility] Comment on above: Performed By: #### L 500.2500, L100.0100 ####[facility] [address] [place], [address] Hemoglobin (Bld) [Mass/Vol] 8.8 g/dL Low 12.0-15.0 [facility] Comment on above: Performed By: #### L 500.2500, L100.0100 ####[facility] [address] [place], [address] IG% 0.500 Normal 0.0-0.9 [facility] Comment on above: Result Comment: IG% - Immature Granulocytes (promyelocytes, myelocytes andmetamyelocytes) > 1% indicates that a LEFT SHIFT is Present. Performed By: #### L 500.2500, L100.0100 ####[facility] [address] [place], [address] Lymphocytes/100 WBC (Bld) 10.5 % Low 19-41 [facility] Comment on above: Performed By: #### L 500.2500, L100.0100 ####[facility] [address] [place], [address] MCH (RBC) [Entitic mass] 21.8 pg Low 27.0-32.0 [facility] Comment on above: Performed By: #### L 500.2500, L100.0100 ####[facility] [address] [place], [address] MCHC (RBC) [Mass/Vol] 29.2 g/dL Low 32-36 [facility] Comment on above: Performed By: #### L 500.2500, L100.0100 ####[facility] [address] [place], [address] MCV (RBC) [Entitic vol] 74.5 fL Low 81-99 [facility] Comment on above: Performed By: #### L 500.2500, L100.0100 ####[facility] [address] [place], [address] Monocytes/100 WBC (Bld) 9.0 % Normal 0-10 [facility] Comment on above: Performed By: #### L 500.2500, L100.0100 ####[facility] [address] [place], [address] Neutrophils/100 WBC (Bld) 76.8 % High 47-70 [facility] Comment on above: Performed By: #### L 500.2500, L100.0100 ####[facility] [address] [place], [address] Nucleated RBC (Bld) [#/Vol] 0 10*3/uL Normal 0-5 [facility] Comment on above: Performed By: #### L 500.2500, L100.0100 ####[facility] [address] [place], [address] Platelet mean volume (Bld) [Entitic vol] 9.6 fL Normal 6.2-12.0 [facility] Comment on above: Performed By: #### L 500.2500, L100.0100 ####[facility] [address] [place], [address] Platelets (Bld) [#/Vol] 399 10*3/uL Normal 150-450 [facility] Comment on above: Performed By: #### L 500.2500, L100.0100 ####[facility] [address] [place], [address] RBC (Bld) [#/Vol] 4.04 10*6/uL Low 4.2-5.4 [facility] Comment on above: Performed By: #### L 500.2500, L100.0100 ####[facility] [address] [place], [address] RDW SD 50.6 fl High 35.1-43.9 [facility] Comment on above: Performed By: #### L 500.2500, L100.0100 ####[facility] [address] [place], [address] WBC (Bld) [#/Vol] 8.5 10*3/uL Normal 4.4-11.0 [facility] Comment on above: Performed By: #### L 500.2500, L100.0100 ####[facility] [address] [place], [address] Basic Metabolic Profile (BMP )on 02-27-2025 BUN/CRE 33.3 RATIO High 10-20 [facility] Comment on above: Performed By: #### L 500.2500, L100.0100 ####[facility] [address] [place], [address] Calcium [Mass/Vol] 9.2 mg/dL Normal 7.6-11.0 [facility] Comment on above: Performed By: #### L 500.2500, L100.0100 ####[facility] [address] [place], [address] Chloride [Moles/Vol] 101 mmol/L Normal 98-108 [facility] Comment on above: Performed By: #### L 500.2500, L100.0100 ####[facility] [address] [place], [address] CO2 [Moles/Vol] 20.1 mmol/L Low 21.0-32.0 [facility] Comment on above: Performed By: #### L 500.2500, L100.0100 ####[facility] [address] [place], [address] Creatinine [Mass/Vol] 1.36 mg/dL High 0.70-1.20 [facility] Comment on above: Performed By: #### L 500.2500, L100.0100 ####[facility] [address] [place], [address] ECRCL 42.51 ml/min Low 50-250 [facility] Comment on above: Performed By: #### L 500.2500, L100.0100 ####[facility] [address] [place], [address] GAP 17 High 5-15 [facility] Comment on above: Performed By: #### L 500.2500, L100.0100 ####[facility] [address] [place], [address] GFR/1.73 sq M.predicted among non-blacks MDRD (S/P/Bld) [Vol rate/Area] 40 mL/min/{1.73_m2} Low >60 [facility] Comment on above: Result Comment: mL/m in/1.73m2 CKD-EPI Creatinine Equation (2020) Performed By: #### L 500.2500, L100.0100 ####[facility] [address] [place], [address] Glucose [Mass/Vol] 106 mg/dL High 70-99 [facility] Comment on above: Performed By: #### L 500.2500, L100.0100 ####[facility] [address] [place], [address] Potassium [Moles/Vol] 3.5 mmol/L Normal 3.3-5.1 [facility] Comment on above: Performed By: #### L 500.2500, L100.0100 ####[facility] [address] [place], [address] Sodium [Moles/Vol] 137 mmol/L Normal 133-145 [facility] Comment on above: Performed By: #### L 500.2500, L100.0100 ####[facility] [address] [place], [address] Urea nitrogen [Mass/Vol] 45 mg/dL High 4-19 [facility] Comment on above: Performed By: #### L 500.2500, L100.0100 ####[facility] [address] [place], [address] Bedside Glucoseon 02-27-2025 FINGERSTICK GLU 92 mg/dL Normal 74-106 [facility] Comment on above: Result Comment: VI GEMENT OF PATIENT CARE PER NURSING PROTOCOL Performed By: #### L 501.080 ####[facility] [address] [place], [address] FINGERSTICK GLU 77 mg/dL Normal 74-106 [facility] Comment on above: Result Comment: VI GEMENT OF PATIENT CARE PER NURSING PROTOCOL Performed By: #### L 501.080 ####[facility] [address] [place], [address] FINGERSTICK GLU 88 mg/dL Normal 74-106 [facility] Comment on above: Result Comment: VI GEMENT OF PATIENT CARE PER NURSING PROTOCOL Performed By: #### L 501.080 ####[facility] [address] [place], [address] FINGERSTICK GLU 89 mg/dL Normal 74-106 [facility] Comment on above: Result Comment: VI GEMENT OF PATIENT CARE PER NURSING PROTOCOL Performed By: #### L 501.080 ####[facility] [address] [place], [address] FINGERSTICK GLU 86 mg/dL Normal 74-106 [facility] Comment on above: Result Comment: VI GEMENT OF PATIENT CARE PER NURSING PROTOCOL Performed By: #### L 501.080 ####[facility] [address] [place], [address] CBC W/Diff, Automatedon 06-0 3-2024 Absolute Lymph 1.18 X10 3/uL Normal 0.83-4.51 [facility] Comment on above: Performed By: #### L 500.2500, L100.0100 ####[facility] [address] [place], [address] Absolute Neut 4.8 X10 3/uL Normal 2.0-7.7 [facility] Comment on above: Performed By: #### L 500.2500, L100.0100 ####[facility] [address] [place], [address] Basophils/100 WBC (Bld) 1.0 % Normal 0-1 [facility] Comment on above: Performed By: #### L 500.2500, L100.0100 ####[facility] [address] [place], [address] Eosinophils/100 WBC (Bld) 2.5 % Normal 0-5 [facility] Comment on above: Performed By: #### L 500.2500, L100.0100 ####[facility] [address] [place], [address] Erythrocyte distribution width (RBC) [Ratio] 18.7 % High 11.6-14.6 [facility] Comment on above: Performed By: #### L 500.2500, L100.0100 ####[facility] [address] [place], [address] Hematocrit (Bld) [Volume fraction] 29.0 % Low 37-47 [facility] Comment on above: Performed By: #### L 500.2500, L100.0100 ####[facility] [address] [place], [address] Hemoglobin (Bld) [Mass/Vol] 8.6 g/dL Low 12.0-15.0 [facility] Comment on above: Performed By: #### L 500.2500, L100.0100 ####[facility] [address] [place], [address] IG% 0.400 Normal 0.0-0.9 [facility] Comment on above: Result Comment: IG% - Immature Granulocytes (promyelocytes, myelocytes andmetamyelocytes) > 1% indicates that a LEFT SHIFT is Present. Performed By: #### L 500.2500, L100.0100 ####[facility] [address] [place], [address] Lymphocytes/100 WBC (Bld) 17.2 % Low 19-41 [facility] Comment on above: Performed By: #### L 500.2500, L100.0100 ####[facility] [address] [place], [address] MCH (RBC) [Entitic mass] 21.7 pg Low 27.0-32.0 [facility] Comment on above: Performed By: #### L 500.2500, L100.0100 ####[facility] [address] [place], [address] MCHC (RBC) [Mass/Vol] 29.7 g/dL Low 32-36 [facility] Comment on above: Performed By: #### L 500.2500, L100.0100 ####[facility] [address] [place], [address] MCV (RBC) [Entitic vol] 73.2 fL Low 81-99 [facility] Comment on above: Performed By: #### L 500.2500, L100.0100 ####[facility] [address] [place], [address] Monocytes/100 WBC (Bld) 8.3 % Normal 0-10 [facility] Comment on above: Performed By: #### L 500.2500, L100.0100 ####[facility] [address], [address] Neutrophils/100 WBC (Bld) 70.6 % High 47-70 [facility] Comment on above: Performed By: #### L 500.2500, L100.0100 ####[facility] [address] [place], [address] Nucleated RBC (Bld) [#/Vol] 0 10*3/uL Normal 0-5 [facility] Comment on above: Performed By: #### L 500.2500, L100.0100 ####[facility] [address] [place], [address] Platelet mean volume (Bld) [Entitic vol] 9.6 fL Normal 6.2-12.0 [facility] Comment on above: Performed By: #### L 500.2500, L100.0100 ####[facility] [address] [place], [address] Platelets (Bld) [#/Vol] 428 10*3/uL Normal 150-450 [facility] Comment on above: Performed By: #### L 500.2500, L100.0100 ####[facility] [address] [place], [address] RBC (Bld) [#/Vol] 3.96 10*6/uL Low 4.2-5.4 [facility] Comment on above: Performed By: #### L 500.2500, L100.0100 ####[facility] [address] [place], [address] RDW SD 49.3 fl High 35.1-43.9 [facility] Comment on above: Performed By: #### L 500.2500, L100.0100 ####[facility] [address] [place], [address] WBC (Bld) [#/Vol] 6.9 10*3/uL Normal 4.4-11.0 [facility] Comment on above: Performed By: #### L 500.2500, L100.0100 ####[facility] [address] [place], [address] MR/POSTOP.ANEon 02-27-2025 MR/POSTOP.ANE Normal [facility] Operative Reporton Operative Report Normal [facility] Basic Metabolic Profile (BMP )on 02-26-2025 BUN/CRE 38.2 RATIO High 10-20 [facility] Comment on above: Performed By: #### L 500.2500, L100.0100 ####[facility] [address] [place], [address] Calcium [Mass/Vol] 8.8 mg/dL Normal 7.6-11.0 [facility] Comment on above: Performed By: #### L 500.2500, L100.0100 ####[facility] [address] [place], [address] Chloride [Moles/Vol] 101 mmol/L Normal 98-108 [facility] Comment on above: Performed By: #### L 500.2500, L100.0100 ####[facility] [address] [place], [address] CO2 [Moles/Vol] 21.6 mmol/L Normal 21.0-32.0 [facility] Comment on above: Performed By: #### L 500.2500, L100.0100 ####[facility] [address] [place], [address] Creatinine [Mass/Vol] 1.35 mg/dL High 0.70-1.20 [facility] Comment on above: Performed By: #### L 500.2500, L100.0100 ####[facility] [address] [place], [address] ECRCL 43.09 ml/min Low 50-250 [facility] Comment on above: Performed By: #### L 500.2500, L100.0100 ####[facility] [address] [place], [address] GAP 13 Normal 5-15 [facility] Comment on above: Performed By: #### L 500.2500, L100.0100 ####[facility] [address] [place], [address] GFR/1.73 sq M.predicted among non-blacks MDRD (S/P/Bld) [Vol rate/Area] 41 mL/min/{1.73_m2} Low >60 [facility] Comment on above: Result Comment: mL/m in/1.73m2 CKD-EPI Creatinine Equation (2020) Performed By: #### L 500.2500, L100.0100 ####[facility] [address] [place], [address] Glucose [Mass/Vol] 75 mg/dL Normal 70-99 [facility] Comment on above: Performed By: #### L 500.2500, L100.0100 ####[facility] [address] [place], [address] Potassium [Moles/Vol] 3.4 mmol/L Normal 3.3-5.1 [facility] Comment on above: Performed By: #### L 500.2500, L100.0100 ####[facility] [address] [place], [address] Sodium [Moles/Vol] 136 mmol/L Normal 133-145 [facility] Comment on above: Performed By: #### L 500.2500, L100.0100 ####[facility] [address] [place], [address] Urea nitrogen [Mass/Vol] 52 mg/dL High 4-19 [facility] Comment on above: Performed By: #### L 500.2500, L100.0100 ####[facility] [address] [place], [address] Bedside Glucoseon 02-26-2025 FINGERSTICK GLU 94 mg/dL Normal 74-106 [facility] Comment on above: Result Comment: VI GEMENT OF PATIENT CARE PER NURSING PROTOCOL Performed By: #### L 501.080 ####[facility] [address] [place], [address] FINGERSTICK GLU 103 mg/dL Normal 74-106 [facility] Comment on above: Result Comment: VI GEMENT OF PATIENT CARE PER NURSING PROTOCOL Performed By: #### L 501.080 ####[facility] [address] [place], [address] FINGERSTICK GLU 92 mg/dL Normal 74-106 [facility] Comment on above: Result Comment: VI GEMENT OF PATIENT CARE PER NURSING PROTOCOL Performed By: #### L 501.080 ####[facility] [address] [place], [address] FINGERSTICK GLU 130 mg/dL High 74-106 [facility] Comment on above: Result Comment: VI GEMENT OF PATIENT CARE PER NURSING PROTOCOL Performed By: #### L 501.080 ####[facility] [address] [place], [address] FINGERSTICK GLU 59 mg/dL Low 74-106 [facility] Comment on above: Result Comment: VI GEMENT OF PATIENT CARE PER NURSING PROTOCOL Performed By: #### L 501.080 ####[facility] [address] [place], [address] FINGERSTICK GLU 73 mg/dL Low 74-106 [facility] Comment on above: Result Comment: VI GEMENT OF PATIENT CARE PER NURSING PROTOCOL Performed By: #### L 501.080 ####[facility] [address] [place], [address] Blood Gases by [facility] 025 DANIEL TEST Positive Normal [facility] Comment on above: Performed By: #### L 9000.0800 ####[facility] [address] [place], [address] Base excess Calc (Bld) [Moles/Vol] 2 mmol/L Normal -2 to +2 [facility] Comment on above: Performed By: #### L 9000.0800 ####[facility] [address] [place], [address] Blood Gas Type ART Normal [facility] Comment on above: Performed By: #### L 9000.0800 ####[facility] [address] [place], [address] CO2 [Moles/Vol] 26 mmol/L Normal [facility] Comment on above: Performed By: #### L 9000.0800 ####[facility] [address] [place], [address] FI02 25.0 Normal [facility] Comment on above: Performed By: #### L 9000.0800 ####[facility] [address] [place], [address] HCO3 (Bld) [Moles/Vol] 25.0 mmol/L Normal 22-26 [facility] Comment on above: Performed By: #### L 9000.0800 ####[facility] [address] [place], [address] Mode AC Normal [facility] Comment on above: Performed By: #### L 9000.0800 ####[facility] [address] [place], [address] O2 Delivery Dev Adult Vent Normal [facility] Comment on above: Performed By: #### L 9000.0800 ####[facility] [address] [place], [address] pCO2 33.6 mmHg Low 35-45 [facility] Comment on above: Performed By: #### L 9000.0800 ####[facility] [address] [place], [address] pH (Bld) 7.48 [pH] High 7.35-7.45 [facility] Comment on above: Performed By: #### L 9000.0800 ####[facility] [address] [place], [address] PO2 78 mmHG Normal 75-100 [facility] Comment on above: Performed By: #### L 9000.0800 ####[facility] [address] [place], [address] RR 14 Normal [facility] Comment on above: Performed By: #### L 9000.0800 ####[facility] [address] [place], [address] SITE L Radial Normal [facility] Comment on above: Performed By: #### L 9000.0800 ####[facility] [address] [place], [address] SO2 97 Normal 95-99 [facility] Comment on above: Performed By: #### L 9000.0800 ####[facility] [address] [place], [address] Vt 450.0 mL Normal [facility] Comment on above: Performed By: #### L 9000.0800 ####[facility] [address] [place], [address] CBC W/Diff, Automatedon 06-0 2-2025 Absolute Lymph 1.06 X10 3/uL Normal 0.83-4.51 [facility] Comment on above: Performed By: #### L 500.2500, L100.0100 ####[facility] [address] [place], [address] Absolute Neut 5.3 X10 3/uL Normal 2.0-7.7 [facility] Comment on above: Performed By: #### L 500.2500, L100.0100 ####[facility] [address] [place], [address] Basophils/100 WBC (Bld) 0.8 % Normal 0-1 [facility] Comment on above: Performed By: #### L 500.2500, L100.0100 ####[facility] [address] [place], [address] Eosinophils/100 WBC (Bld) 2.4 % Normal 0-5 [facility] Comment on above: Performed By: #### L 500.2500, L100.0100 ####[facility] [address] [place], [address] Erythrocyte distribution width (RBC) [Ratio] 18.7 % High 11.6-14.6 [facility] Comment on above: Performed By: #### L 500.2500, L100.0100 ####[facility] [address] [place], [address] Hematocrit (Bld) [Volume fraction] 27.9 % Low 37-47 [facility] Comment on above: Performed By: #### L 500.2500, L100.0100 ####[facility] [address] [place], [address] Hemoglobin (Bld) [Mass/Vol] 8.2 g/dL Low 12.0-15.0 [facility] Comment on above: Performed By: #### L 500.2500, L100.0100 ####[facility] [address] [place], [address] IG% 0.400 Normal 0.0-0.9 [facility] Comment on above: Result Comment: IG% - Immature Granulocytes (promyelocytes, myelocytes andmetamyelocytes) > 1% indicates that a LEFT SHIFT is Present. Performed By: #### L 500.2500, L100.0100 ####[facility] [address] [place], [address] Lymphocytes/100 WBC (Bld) 14.4 % Low 19-41 [facility] Comment on above: Performed By: #### L 500.2500, L100.0100 ####[facility] [address] [place], [address] MCH (RBC) [Entitic mass] 21.6 pg Low 27.0-32.0 [facility] Comment on above: Performed By: #### L 500.2500, L100.0100 ####[facility] [address] [place], [address] MCHC (RBC) [Mass/Vol] 29.4 g/dL Low 32-36 [facility] Comment on above: Performed By: #### L 500.2500, L100.0100 ####[facility] [address] [place], [address] MCV (RBC) [Entitic vol] 73.4 fL Low 81-99 [facility] Comment on above: Performed By: #### L 500.2500, L100.0100 ####[facility] [address] [place], [address] Monocytes/100 WBC (Bld) 9.5 % Normal 0-10 [facility] Comment on above: Performed By: #### L 500.2500, L100.0100 ####[facility] [address] [place], [address] Neutrophils/100 WBC (Bld) 72.5 % High 47-70 [facility] Comment on above: Performed By: #### L 500.2500, L100.0100 ####[facility] [address] [place], [address] Nucleated RBC (Bld) [#/Vol] 0 10*3/uL Normal 0-5 [facility] Comment on above: Performed By: #### L 500.2500, L100.0100 ####[facility] [address] [place], [address] Platelet mean volume (Bld) [Entitic vol] 9.9 fL Normal 6.2-12.0 [facility] Comment on above: Performed By: #### L 500.2500, L100.0100 ####[facility] [address] [place], [address] Platelets (Bld) [#/Vol] 407 10*3/uL Normal 150-450 [facility] Comment on above: Performed By: #### L 500.2500, L100.0100 ####[facility] [address] [place], [address] RBC (Bld) [#/Vol] 3.80 10*6/uL Low 4.2-5.4 [facility] Comment on above: Performed By: #### L 500.2500, L100.0100 ####[facility] [address] [place], [address] RDW SD 49.4 fl High 35.1-43.9 [facility] Comment on above: Performed By: #### L 500.2500, L100.0100 ####[facility] [address] [place], [address] WBC (Bld) [#/Vol] 7.4 10*3/uL Normal 4.4-11.0 [facility] Comment on above: Performed By: #### L 500.2500, L100.0100 ####[facility] [address] [place], [address] Chest 1 View (Portable)on Chest 1 View (Portable) Normal [facility] Abdomen Single View (Portabl e)on 02-25-2025 Abdomen Single View (Portable) Normal [facility] Basic Metabolic Profile (BMP )on 02-25-2025 BUN/CRE 38.5 RATIO High 10-20 [facility] Comment on above: Performed By: #### L 501.5200, L100.0100, L500.2500 ####[facility] [address] [place], [address] Calcium [Mass/Vol] 8.9 mg/dL Normal 7.6-11.0 [facility] Comment on above: Performed By: #### L 501.5200, L100.0100, L500.2500 ####[facility] [address] [place], [address] Chloride [Moles/Vol] 102 mmol/L Normal 98-108 [facility] Comment on above: Performed By: #### L 501.5200, L100.0100, L500.2500 ####[facility] [address] [place], [address] CO2 [Moles/Vol] 21.0 mmol/L Normal 21.0-32.0 [facility] Comment on above: Performed By: #### L 501.5200, L100.0100, L500.2500 ####[facility] [address] [place], [address] Creatinine [Mass/Vol] 1.51 mg/dL High 0.70-1.20 [facility] Comment on above: Performed By: #### L 501.5200, L100.0100, L500.2500 ####[facility] [address] [place], [address] ECRCL 38.65 ml/min Low 50-250 [facility] Comment on above: Performed By: #### L 501.5200, L100.0100, L500.2500 ####[facility] [address] [place], [address] GAP 14 Normal 5-15 [facility] Comment on above: Performed By: #### L 501.5200, L100.0100, L500.2500 ####[facility] [address] [place], [address] GFR/1.73 sq M.predicted among non-blacks MDRD (S/P/Bld) [Vol rate/Area] 36 mL/min/{1.73_m2} Low >60 [facility] Comment on above: Result Comment: mL/m in/1.73m2 CKD-EPI Creatinine Equation (2020) Performed By: #### L 501.5200, L100.0100, L500.2500 ####[facility] [address] [place], [address] Glucose [Mass/Vol] 119 mg/dL High 70-99 [facility] Comment on above: Performed By: #### L 501.5200, L100.0100, L500.2500 ####[facility] [address] [place], [address] Potassium [Moles/Vol] 3.9 mmol/L Normal 3.3-5.1 [facility] Comment on above: Performed By: #### L 501.5200, L100.0100, L500.2500 ####[facility] [address] [place], [address] Sodium [Moles/Vol] 137 mmol/L Normal 133-145 [facility] Comment on above: Performed By: #### L 501.5200, L100.0100, L500.2500 ####[facility] [address] [place], [address] Urea nitrogen [Mass/Vol] 58 mg/dL High 4-19 [facility] Comment on above: Performed By: #### L 501.5200, L100.0100, L500.2500 ####[facility] [address] [place], [address] Bedside Glucoseon 02-25-2025 FINGERSTICK GLU 77 mg/dL Normal 74-106 [facility] Comment on above: Result Comment: VI GEMENT OF PATIENT CARE PER NURSING PROTOCOL Performed By: #### L 501.080 ####[facility] [address] [place], [address] FINGERSTICK GLU 97 mg/dL Normal 74-106 [facility] Comment on above: Result Comment: VI GEMENT OF PATIENT CARE PER NURSING PROTOCOL Performed By: #### L 501.080 ####[facility] [address] [place], [address] FINGERSTICK GLU 115 mg/dL High 74-106 [facility] Comment on above: Result Comment: VI GEMENT OF PATIENT CARE PER NURSING PROTOCOL Performed By: #### L 501.080 ####[facility] [address] [place], [address] FINGERSTICK GLU 120 mg/dL High 74-106 [facility] Comment on above: Result Comment: VI GEMENT OF PATIENT CARE PER NURSING PROTOCOL Performed By: #### L 501.080 ####[facility] [address] [place], [address] Blood Gases by [facility] 025 Base excess Calc (Bld) [Moles/Vol] 2 mmol/L Normal -2 to +2 [facility] Comment on above: Performed By: #### L 9000.0800 ####[facility] [address] [place], [address] Blood Gas Type ART Normal [facility] Comment on above: Performed By: #### L 9000.0800 ####[facility] [address] [place], [address] CO2 [Moles/Vol] 27 mmol/L Normal [facility] Comment on above: Performed By: #### L 9000.0800 ####[facility] [address] [place], [address] FI02 25.0 Normal [facility] Comment on above: Performed By: #### L 9000.0800 ####[facility] [address] [place], [address] HCO3 (Bld) [Moles/Vol] 25.6 mmol/L Normal 22-26 [facility] Comment on above: Performed By: #### L 9000.0800 ####[facility] [address] [place], [address] Mode AC Normal [facility] Comment on above: Performed By: #### L 9000.0800 ####[facility] [address] [place], [address] O2 Delivery Dev Adult Vent Normal [facility] Comment on above: Performed By: #### L 9000.0800 ####[facility] [address] [place], [address] pCO2 32.7 mmHg Low 35-45 [facility] Comment on above: Performed By: #### L 9000.0800 ####[facility] [address] [place], [address] PEEP 5 Normal [facility] Comment on above: Performed By: #### L 9000.0800 ####[facility] [address] [place], [address] pH (Bld) 7.50 [pH] High 7.35-7.45 [facility] Comment on above: Performed By: #### L 9000.0800 ####[facility] [address] [place], [address] PO2 82 mmHG Normal 75-100 [facility] Comment on above: Performed By: #### L 9000.0800 ####[facility] [address] [place], [address] RR 14 Normal [facility] Comment on above: Performed By: #### L 9000.0800 ####[facility] [address] [place], [address] SITE L Brach Normal [facility] Comment on above: Performed By: #### L 9000.0800 ####[facility] [address] [place], [address] SO2 97 Normal 95-99 [facility] Comment on above: Performed By: #### L 9000.0800 ####[facility] [address] [place], [address] Vt 450.0 mL Normal [facility] Comment on above: Performed By: #### L 9000.0800 ####[facility] [address] [place], [address] CBC W/Diff, Automatedon 06-0 -2024 Absolute Lymph 0.96 X10 3/uL Normal 0.83-4.51 [facility] Comment on above: Performed By: #### L 501.5200, L100.0100, L500.2500 ####[facility] [address] [place], [address] Absolute Neut 5.2 X10 3/uL Normal 2.0-7.7 [facility] Comment on above: Performed By: #### L 501.5200, L100.0100, L500.2500 ####[facility] [address] [place], [address] Basophils/100 WBC (Bld) 1.0 % Normal 0-1 [facility] Comment on above: Performed By: #### L 501.5200, L100.0100, L500.2500 ####[facility] [address] [place], [address] Eosinophils/100 WBC (Bld) 2.5 % Normal 0-5 [facility] Comment on above: Performed By: #### L 501.5200, L100.0100, L500.2500 ####[facility] [address] [place], [address] Erythrocyte distribution width (RBC) [Ratio] 18.8 % High 11.6-14.6 [facility] Comment on above: Performed By: #### L 501.5200, L100.0100, L500.2500 ####[facility] [address] [place], [address] Hematocrit (Bld) [Volume fraction] 27.1 % Low 37-47 [facility] Comment on above: Performed By: #### L 501.5200, L100.0100, L500.2500 ####[facility] [address] [place], [address] Hemoglobin (Bld) [Mass/Vol] 8.0 g/dL Low 12.0-15.0 [facility] Comment on above: Performed By: #### L 501.5200, L100.0100, L500.2500 ####[facility] [address] [place], [address] IG% 0.300 Normal 0.0-0.9 [facility] Comment on above: Result Comment: IG% - Immature Granulocytes (promyelocytes, myelocytes andmetamyelocytes) > 1% indicates that a LEFT SHIFT is Present. Performed By: #### L 501.5200, L100.0100, L500.2500 ####[facility] [address] [place], [address] Lymphocytes/100 WBC (Bld) 13.5 % Low 19-41 [facility] Comment on above: Performed By: #### L 501.5200, L100.0100, L500.2500 ####[facility] [address] [place], [address] MCH (RBC) [Entitic mass] 21.6 pg Low 27.0-32.0 [facility] Comment on above: Performed By: #### L 501.5200, L100.0100, L500.2500 ####[facility] [address] [place], [address] MCHC (RBC) [Mass/Vol] 29.5 g/dL Low 32-36 [facility] Comment on above: Performed By: #### L 501.5200, L100.0100, L500.2500 ####[facility] [address] [place], [address] MCV (RBC) [Entitic vol] 73.2 fL Low 81-99 [facility] Comment on above: Performed By: #### L 501.5200, L100.0100, L500.2500 ####[facility] [address] [place], [address] Monocytes/100 WBC (Bld) 8.9 % Normal 0-10 [facility] Comment on above: Performed By: #### L 501.5200, L100.0100, L500.2500 ####[facility] [address] [place], [address] Neutrophils/100 WBC (Bld) 73.8 % High 47-70 [facility] Comment on above: Performed By: #### L 501.5200, L100.0100, L500.2500 ####[facility] [address] [place], [address] Nucleated RBC (Bld) [#/Vol] 0 10*3/uL Normal 0-5 [facility] Comment on above: Performed By: #### L 501.5200, L100.0100, L500.2500 ####[facility] [address] [place], [address] Platelet mean volume (Bld) [Entitic vol] 10.6 fL Normal 6.2-12.0 [facility] Comment on above: Performed By: #### L 501.5200, L100.0100, L500.2500 ####[facility] [address] [place], [address] Platelets (Bld) [#/Vol] 397 10*3/uL Normal 150-450 [facility] Comment on above: Performed By: #### L 501.5200, L100.0100, L500.2500 ####[facility] [address] [place], [address] RBC (Bld) [#/Vol] 3.70 10*6/uL Low 4.2-5.4 [facility] Comment on above: Performed By: #### L 501.5200, L100.0100, L500.2500 ####[facility] [address] [place], [address] RDW SD 50.0 fl High 35.1-43.9 [facility] Comment on above: Performed By: #### L 501.5200, L100.0100, L500.2500 ####[facility] [address] [place], [address] WBC (Bld) [#/Vol] 7.1 10*3/uL Normal 4.4-11.0 [facility] Comment on above: Performed By: #### L 501.5200, L100.0100, L500.2500 ####[facility] [address] [place], [address] Magnesiumon 02-25-2025 Magnesium [Mass/Vol] 1.9 mg/dL Normal 1.5-2.2 [facility] Comment on above: Performed By: #### L 501.5200, L100.0100, L500.2500 ####[facility] [address] [place], [address] Phosphoruson 02-25-2025 Phosphate [Mass/Vol] 3.7 mg/dL Normal 2.7-4.5 [facility] Comment on above: Performed By: #### L 501.2300 ####[facility] [address] [place], [address] Basic Metabolic Profile (BMP )on 02-24-2025 BUN/CRE 37.1 RATIO High 10-20 [facility] Comment on above: Performed By: #### L 500.2500, L100.0100 ####[facility] [address] [place], [address] Calcium [Mass/Vol] 8.8 mg/dL Normal 7.6-11.0 [facility] Comment on above: Performed By: #### L 500.2500, L100.0100 ####[facility] [address] [place], [address] Chloride [Moles/Vol] 99 mmol/L Normal 98-108 [facility] Comment on above: Performed By: #### L 500.2500, L100.0100 ####[facility] [address] [place], [address] CO2 [Moles/Vol] 21.0 mmol/L Normal 21.0-32.0 [facility] Comment on above: Performed By: #### L 500.2500, L100.0100 ####[facility] [address] [place], [address] Creatinine [Mass/Vol] 1.67 mg/dL High 0.70-1.20 [facility] Comment on above: Performed By: #### L 500.2500, L100.0100 ####[facility] [address] [place], [address] ECRCL 34.98 ml/min Low 50-250 [facility] Comment on above: Performed By: #### L 500.2500, L100.0100 ####[facility] [address] [place], [address] GAP 14 Normal 5-15 [facility] Comment on above: Performed By: #### L 500.2500, L100.0100 ####[facility] [address] [place], [address] GFR/1.73 sq M.predicted among non-blacks MDRD (S/P/Bld) [Vol rate/Area] 32 mL/min/{1.73_m2} Low >60 [facility] Comment on above: Result Comment: mL/m in/1.73m2 CKD-EPI Creatinine Equation (2020) Performed By: #### L 500.2500, L100.0100 ####[facility] [address] [place], [address] Glucose [Mass/Vol] 109 mg/dL High 70-99 [facility] Comment on above: Performed By: #### L 500.2500, L100.0100 ####[facility] [address] [place], [address] Potassium [Moles/Vol] 3.4 mmol/L Normal 3.3-5.1 [facility] Comment on above: Performed By: #### L 500.2500, L100.0100 ####[facility] [address] [place], [address] Sodium [Moles/Vol] 134 mmol/L Normal 133-145 [facility] Comment on above: Performed By: #### L 500.2500, L100.0100 ####[facility] [address] [place], [address] Urea nitrogen [Mass/Vol] 62 mg/dL High 4-19 [facility] Comment on above: Performed By: #### L 500.2500, L100.0100 ####[facility] [address] [place], [address] Bedside Glucoseon 02-24-2025 FINGERSTICK GLU 119 mg/dL High 74-106 [facility] Comment on above: Result Comment: VI GEMENT OF PATIENT CARE PER NURSING PROTOCOL Performed By: #### L 501.080 ####[facility] [address] [place], [address] FINGERSTICK GLU 99 mg/dL Normal 74-106 [facility] Comment on above: Result Comment: IV GEMENT OF PATIENT CARE PER NURSING PROTOCOL Performed By: #### L 501.080 ####[facility] [address] [place], [address] FINGERSTICK GLU 99 mg/dL Normal 74-106 [facility] Comment on above: Result Comment: VI GEMENT OF PATIENT CARE PER NURSING PROTOCOL Performed By: #### L 501.080 ####[facility] [address] [place], [address] FINGERSTICK GLU 97 mg/dL Normal 74-106 [facility] Comment on above: Result Comment: VI GEMENT OF PATIENT CARE PER NURSING PROTOCOL Performed By: #### L 501.080 ####[facility] [address] [place], [address] FINGERSTICK GLU 112 mg/dL High 74-106 [facility] Comment on above: Result Comment: VI GEMENT OF PATIENT CARE PER NURSING PROTOCOL Performed By: #### L 501.080 ####[facility] [address] [place], [address] FINGERSTICK GLU 162 mg/dL High 74-106 [facility] Comment on above: Result Comment: VI GEMENT OF PATIENT CARE PER NURSING PROTOCOL Performed By: #### L 501.080 ####[facility] [address] [place], [address] FINGERSTICK GLU 61 mg/dL Low 74-106 [facility] Comment on above: Result Comment: VI GEMENT OF PATIENT CARE PER NURSING PROTOCOL Performed By: #### L 501.080 ####[facility] [address] [place], [address] FINGERSTICK GLU 73 mg/dL Low 74-106 [facility] Comment on above: Result Comment: VI GEMENT OF PATIENT CARE PER NURSING PROTOCOL Performed By: #### L 501.080 ####[facility] [address] [place], [address] CBC W/Diff, Automatedon 05-3 -2024 Absolute Lymph 0.89 X10 3/uL Normal 0.83-4.51 [facility] Comment on above: Performed By: #### L 500.2500, L100.0100 ####[facility] [address] [place], [address] Absolute Neut 6.8 X10 3/uL Normal 2.0-7.7 [facility] Comment on above: Performed By: #### L 500.2500, L100.0100 ####[facility] [address] [place], [address] Basophils/100 WBC (Bld) 0.7 % Normal 0-1 [facility] Comment on above: Performed By: #### L 500.2500, L100.0100 ####[facility] [address] [place], [address] Eosinophils/100 WBC (Bld) 2.5 % Normal 0-5 [facility] Comment on above: Performed By: #### L 500.2500, L100.0100 ####[facility] [address] [place], [address] Erythrocyte distribution width (RBC) [Ratio] 18.9 % High 11.6-14.6 [facility] Comment on above: Performed By: #### L 500.2500, L100.0100 ####[facility] [address] [place], [address] Hematocrit (Bld) [Volume fraction] 27.9 % Low 37-47 [facility] Comment on above: Performed By: #### L 500.2500, L100.0100 ####[facility] [address] [place], [address] Hemoglobin (Bld) [Mass/Vol] 8.3 g/dL Low 12.0-15.0 [facility] Comment on above: Performed By: #### L 500.2500, L100.0100 ####[facility] [address] [place], [address] IG% 0.500 Normal 0.0-0.9 [facility] Comment on above: Result Comment: IG% - Immature Granulocytes (promyelocytes, myelocytes andmetamyelocytes) > 1% indicates that a LEFT SHIFT is Present. Performed By: #### L 500.2500, L100.0100 ####[facility] [address] [place], [address] Lymphocytes/100 WBC (Bld) 10.2 % Low 19-41 [facility] Comment on above: Performed By: #### L 500.2500, L100.0100 ####[facility] [address] [place], [address] MCH (RBC) [Entitic mass] 21.8 pg Low 27.0-32.0 [facility] Comment on above: Performed By: #### L 500.2500, L100.0100 ####[facility] [address] [place], [address] MCHC (RBC) [Mass/Vol] 29.7 g/dL Low 32-36 [facility] Comment on above: Performed By: #### L 500.2500, L100.0100 ####[facility] [address] [place], [address] MCV (RBC) [Entitic vol] 73.2 fL Low 81-99 [facility] Comment on above: Performed By: #### L 500.2500, L100.0100 ####[facility] [address] [place], [address] Monocytes/100 WBC (Bld) 8.0 % Normal 0-10 [facility] Comment on above: Performed By: #### L 500.2500, L100.0100 ####[facility] [address] [place], [address] Neutrophils/100 WBC (Bld) 78.1 % High 47-70 [facility] Comment on above: Performed By: #### L 500.2500, L100.0100 ####[facility] [address] [place], [address] Nucleated RBC (Bld) [#/Vol] 0 10*3/uL Normal 0-5 [facility] Comment on above: Performed By: #### L 500.2500, L100.0100 ####[facility] [address] [place], [address] Platelet mean volume (Bld) [Entitic vol] 10.0 fL Normal 6.2-12.0 [facility] Comment on above: Performed By: #### L 500.2500, L100.0100 ####[facility] [address] [place], [address] Platelets (Bld) [#/Vol] 402 10*3/uL Normal 150-450 [facility] Comment on above: Performed By: #### L 500.2500, L100.0100 ####[facility] [address] [place], [address] RBC (Bld) [#/Vol] 3.81 10*6/uL Low 4.2-5.4 [facility] Comment on above: Performed By: #### L 500.2500, L100.0100 ####[facility] [address] [place], [address] RDW SD 49.6 fl High 35.1-43.9 [facility] Comment on above: Performed By: #### L 500.2500, L100.0100 ####[facility] [address] [place], [address] WBC (Bld) [#/Vol] 8.7 10*3/uL Normal 4.4-11.0 [facility] Comment on above: Performed By: #### L 500.2500, L100.0100 ####[facility] [address] [place], [address] Basic Metabolic Profile (BMP )on 02-23-2025 BUN/CRE 33.4 RATIO High 10-20 [facility] Comment on above: Performed By: #### L 100.0100, L500.2500 ####[facility] [address] [place], [address] Calcium [Mass/Vol] 8.8 mg/dL Normal 7.6-11.0 [facility] Comment on above: Performed By: #### L 100.0100, L500.2500 ####[facility] [address] [place], [address] Chloride [Moles/Vol] 98 mmol/L Normal 98-108 [facility] Comment on above: Performed By: #### L 100.0100, L500.2500 ####[facility] [address] [place], [address] CO2 [Moles/Vol] 20.9 mmol/L Low 21.0-32.0 [facility] Comment on above: Performed By: #### L 100.0100, L500.2500 ####[facility] [address] [place], [address] Creatinine [Mass/Vol] 1.86 mg/dL High 0.70-1.20 [facility] Comment on above: Performed By: #### L 100.0100, L500.2500 ####[facility] [address] [place], [address] ECRCL 31.46 ml/min Low 50-250 [facility] Comment on above: Performed By: #### L 100.0100, L500.2500 ####[facility] [address] [place], [address] GAP 12 Normal 5-15 [facility] Comment on above: Performed By: #### L 100.0100, L500.2500 ####[facility] [address] [place], [address] GFR/1.73 sq M.predicted among non-blacks MDRD (S/P/Bld) [Vol rate/Area] 28 mL/min/{1.73_m2} Low >60 [facility] Comment on above: Result Comment: mL/m in/1.73m2 CKD-EPI Creatinine Equation (2020) Performed By: #### L 100.0100, L500.2500 ####[facility] [address] [place], [address] Glucose [Mass/Vol] 47 mg/dL Low 70-99 [facility] Comment on above: Performed By: #### L 100.0100, L500.2500 ####[facility] [address] [place], [address] Potassium [Moles/Vol] 3.3 mmol/L Normal 3.3-5.1 [facility] Comment on above: Performed By: #### L 100.0100, L500.2500 ####[facility] [address] [place], [address] Sodium [Moles/Vol] 130 mmol/L Low 133-145 [facility] Comment on above: Performed By: #### L 100.0100, L500.2500 ####[facility] [address] [place], [address] Urea nitrogen [Mass/Vol] 62 mg/dL High 4-19 [facility] Comment on above: Performed By: #### L 100.0100, L500.2500 ####[facility] [address] [place], [address] Bedside Glucoseon 02-23-2025 FINGERSTICK GLU 88 mg/dL Normal 74-106 [facility] Comment on above: Result Comment: VI GEMENT OF PATIENT CARE PER NURSING PROTOCOL Performed By: #### L 501.080 ####[facility] [address] [place], [address] FINGERSTICK GLU 73 mg/dL Low 74-106 [facility] Comment on above: Result Comment: VI GEMENT OF PATIENT CARE PER NURSING PROTOCOL Performed By: #### L 501.080 ####[facility] [address] [place], [address] FINGERSTICK GLU 117 mg/dL High 74-106 [facility] Comment on above: Result Comment: VI GEMENT OF PATIENT CARE PER NURSING PROTOCOL Performed By: #### L 501.080 ####[facility] [address] [place], [address] FINGERSTICK GLU 43 mg/dL Invalid Interpretation Code 74-106 [facility] Comment on above: Result Comment: VI GEMENT OF PATIENT CARE PER NURSING PROTOCOL Performed By: #### L 501.080 ####[facility] [address] [place], [address] FINGERSTICK GLU 99 mg/dL Normal 74-106 [facility] Comment on above: Result Comment: VI GEMENT OF PATIENT CARE PER NURSING PROTOCOL Performed By: #### L 501.080 ####[facility] [address] [place], [address] Blood Gases by [facility] 025 DANIEL TEST Positive Normal [facility] Comment on above: Performed By: #### L 9000.0800 ####[facility] [address] [place], [address] Base excess Calc (Bld) [Moles/Vol] 1 mmol/L Normal -2 to +2 [facility] Comment on above: Performed By: #### L 9000.0800 ####[facility] [address] [place], [address] Blood Gas Type ART Normal [facility] Comment on above: Performed By: #### L 9000.0800 ####[facility] [address] [place], [address] CO2 [Moles/Vol] 25 mmol/L Normal [facility] Comment on above: Performed By: #### L 9000.0800 ####[facility] [address] [place], [address] FI02 25.0 Normal [facility] Comment on above: Performed By: #### L 9000.0800 ####[facility] [address] [place], [address] HCO3 (Bld) [Moles/Vol] 24.3 mmol/L Normal 22-26 [facility] Comment on above: Performed By: #### L 9000.0800 ####[facility] [address] [place], [address] Mode AC Normal [facility] Comment on above: Performed By: #### L 9000.0800 ####[facility] [address] [place], [address] O2 Delivery Dev ET Tube Normal [facility] Comment on above: Performed By: #### L 9000.0800 ####[facility] [address] [place], [address] pCO2 33.8 mmHg Low 35-45 [facility] Comment on above: Performed By: #### L 9000.0800 ####[facility] [address] [place], [address] PEEP 5 Normal [facility] Comment on above: Performed By: #### L 9000.0800 ####[facility] [address] [place], [address] pH (Bld) 7.46 [pH] High 7.35-7.45 [facility] Comment on above: Performed By: #### L 9000.0800 ####[facility] [address] [place], [address] PO2 73 mmHG Low 75-100 [facility] Comment on above: Performed By: #### L 9000.0800 ####[facility] [address] [place], [address] RR 14 Normal [facility] Comment on above: Performed By: #### L 9000.0800 ####[facility] [address] [place], [address] SITE R Radial Normal [facility] Comment on above: Performed By: #### L 9000.0800 ####[facility] [address] [place], [address] SO2 96 Normal 95-99 [facility] Comment on above: Performed By: #### L 9000.0800 ####[facility] [address] [place], [address] Vt 450.0 mL Normal [facility] Comment on above: Performed By: #### L 9000.0800 ####[facility] [address] [place], [address] CBC W/Diff, Automatedon 05-3 0-2025 Absolute Lymph 1.04 X10 3/uL Normal 0.83-4.51 [facility] Comment on above: Performed By: #### L 100.0100, L500.2500 ####[facility] [address] [place], [address] Absolute Neut 7.1 X10 3/uL Normal 2.0-7.7 [facility] Comment on above: Performed By: #### L 100.0100, L500.2500 ####[facility] [address] [place], [address] Basophils/100 WBC (Bld) 0.5 % Normal 0-1 [facility] Comment on above: Performed By: #### L 100.0100, L500.2500 ####[facility] [address] [place], [address] Eosinophils/100 WBC (Bld) 2.0 % Normal 0-5 [facility] Comment on above: Performed By: #### L 100.0100, L500.2500 ####[facility] [address] [place], [address] Erythrocyte distribution width (RBC) [Ratio] 19.4 % High 11.6-14.6 [facility] Comment on above: Performed By: #### L 100.0100, L500.2500 ####[facility] [address] [place], [address] Hematocrit (Bld) [Volume fraction] 27.5 % Low 37-47 [facility] Comment on above: Performed By: #### L 100.0100, L500.2500 ####[facility] [address] [place], [address] Hemoglobin (Bld) [Mass/Vol] 8.2 g/dL Low 12.0-15.0 [facility] Comment on above: Performed By: #### L 100.0100, L500.2500 ####[facility] [address] [place], [address] IG% 0.400 Normal 0.0-0.9 [facility] Comment on above: Result Comment: IG% - Immature Granulocytes (promyelocytes, myelocytes andmetamyelocytes) > 1% indicates that a LEFT SHIFT is Present. Performed By: #### L 100.0100, L500.2500 ####[facility] [address] [place], [address] Lymphocytes/100 WBC (Bld) 11.4 % Low 19-41 [facility] Comment on above: Performed By: #### L 100.0100, L500.2500 ####[facility] [address] [place], [address] MCH (RBC) [Entitic mass] 21.6 pg Low 27.0-32.0 [facility] Comment on above: Performed By: #### L 100.0100, L500.2500 ####[facility] [address] [place], [address] MCHC (RBC) [Mass/Vol] 29.8 g/dL Low 32-36 [facility] Comment on above: Performed By: #### L 100.0100, L500.2500 ####[facility] [address] [place], [address] MCV (RBC) [Entitic vol] 72.6 fL Low 81-99 [facility] Comment on above: Performed By: #### L 100.0100, L500.2500 ####[facility] [address] [place], [address] Monocytes/100 WBC (Bld) 7.3 % Normal 0-10 [facility] Comment on above: Performed By: #### L 100.0100, L500.2500 ####[facility] [address] [place], [address] Neutrophils/100 WBC (Bld) 78.4 % High 47-70 [facility] Comment on above: Performed By: #### L 100.0100, L500.2500 ####[facility] [address] [place], [address] Nucleated RBC (Bld) [#/Vol] 0 10*3/uL Normal 0-5 [facility] Comment on above: Performed By: #### L 100.0100, L500.2500 ####[facility] [address] [place], [address] Platelet mean volume (Bld) [Entitic vol] 10.2 fL Normal 6.2-12.0 [facility] Comment on above: Performed By: #### L 100.0100, L500.2500 ####[facility] [address] [place], [address] Platelets (Bld) [#/Vol] 398 10*3/uL Normal 150-450 [facility] Comment on above: Performed By: #### L 100.0100, L500.2500 ####[facility] [address] [place], [address] RBC (Bld) [#/Vol] 3.79 10*6/uL Low 4.2-5.4 [facility] Comment on above: Performed By: #### L 100.0100, L500.2500 ####[facility] [address] [place], [address] RDW SD 50.0 fl High 35.1-43.9 [facility] Comment on above: Performed By: #### L 100.0100, L500.2500 ####[facility] [address] [place], [address] WBC (Bld) [#/Vol] 9.1 10*3/uL Normal 4.4-11.0 [facility] Comment on above: Performed By: #### L 100.0100, L500.2500 ####[facility] [address] [place], [address] Chest 1 View (Portable)on Chest 1 View (Portable) Normal [facility] Basic Metabolic Profile (BMP )on 02-22-2025 BUN/CRE 32.7 RATIO High 10-20 [facility] Comment on above: Performed By: #### L 500.2500, L100.0100 ####[facility] [address] [place], [address] Calcium [Mass/Vol] 9.0 mg/dL Normal 7.6-11.0 [facility] Comment on above: Performed By: #### L 500.2500, L100.0100 ####[facility] [address] [place], [address] Chloride [Moles/Vol] 99 mmol/L Normal 98-108 [facility] Comment on above: Performed By: #### L 500.2500, L100.0100 ####[facility] [address] [place], [address] CO2 [Moles/Vol] 20.6 mmol/L Low 21.0-32.0 [facility] Comment on above: Performed By: #### L 500.2500, L100.0100 ####[facility] [address] [place], [address] Creatinine [Mass/Vol] 1.84 mg/dL High 0.70-1.20 [facility] Comment on above: Performed By: #### L 500.2500, L100.0100 ####[facility] [address] [place], [address] ECRCL 31.80 ml/min Low 50-250 [facility] Comment on above: Performed By: #### L 500.2500, L100.0100 ####[facility] [address] [place], [address] GAP 14 Normal 5-15 [facility] Comment on above: Performed By: #### L 500.2500, L100.0100 ####[facility] [address] [place], [address] GFR/1.73 sq M.predicted among non-blacks MDRD (S/P/Bld) [Vol rate/Area] 28 mL/min/{1.73_m2} Low >60 [facility] Comment on above: Result Comment: mL/m in/1.73m2 CKD-EPI Creatinine Equation (2020) Performed By: #### L 500.2500, L100.0100 ####[facility] [address] [place], [address] Glucose [Mass/Vol] 118 mg/dL High 70-99 [facility] Comment on above: Performed By: #### L 500.2500, L100.0100 ####[facility] [address] [place], [address] Potassium [Moles/Vol] 3.7 mmol/L Normal 3.3-5.1 [facility] Comment on above: Performed By: #### L 500.2500, L100.0100 ####[facility] [address] [place], [address] Sodium [Moles/Vol] 134 mmol/L Normal 133-145 [facility] Comment on above: Performed By: #### L 500.2500, L100.0100 ####[facility] [address] [place], [address] Urea nitrogen [Mass/Vol] 60 mg/dL High 4-19 [facility] Comment on above: Performed By: #### L 500.2500, L100.0100 ####[facility] [address] [place], [address] Bedside Glucoseon 02-22-2025 FINGERSTICK GLU 62 mg/dL Low 74-106 [facility] Comment on above: Result Comment: VI GEMENT OF PATIENT CARE PER NURSING PROTOCOL Performed By: #### L 501.080 ####[facility] [address] [place], [address] FINGERSTICK GLU 56 mg/dL Low 74-106 [facility] Comment on above: Result Comment: VI GEMENT OF PATIENT CARE PER NURSING PROTOCOL Performed By: #### L 501.080 ####[facility] [address] [place], [address] FINGERSTICK GLU 154 mg/dL High 74-106 [facility] Comment on above: Result Comment: VI GEMENT OF PATIENT CARE PER NURSING PROTOCOL Performed By: #### L 501.080 ####[facility] [address] [place], [address] FINGERSTICK GLU 104 mg/dL Normal 74-106 [facility] Comment on above: Result Comment: VI GEMENT OF PATIENT CARE PER NURSING PROTOCOL Performed By: #### L 501.080 ####[facility] [address] [place], [address] FINGERSTICK GLU 112 mg/dL High 74-106 [facility] Comment on above: Result Comment: VI MONTEJO OF PATIENT CARE PER NURSING PROTOCOL Performed By: #### L 501.080 ####[facility] [address] [place], [address] CBC W/Diff, Automatedon 05-2 Absolute Lymph 0.86 X10 3/uL Normal 0.83-4.51 [facility] Comment on above: Performed By: #### L 500.2500, L100.0100 ####[facility] [address] [place], [address] Absolute Neut 7.2 X10 3/uL Normal 2.0-7.7 [facility] Comment on above: Performed By: #### L 500.2500, L100.0100 ####[facility] [address] [place], [address] Basophils/100 WBC (Bld) 0.6 % Normal 0-1 [facility] Comment on above: Performed By: #### L 500.2500, L100.0100 ####[facility] [address] [place], [address] Eosinophils/100 WBC (Bld) 2.0 % Normal 0-5 [facility] Comment on above: Performed By: #### L 500.2500, L100.0100 ####[facility] [address] [place], [address] Erythrocyte distribution width (RBC) [Ratio] 19.8 % High 11.6-14.6 [facility] Comment on above: Performed By: #### L 500.2500, L100.0100 ####[facility] [address] [place], [address] Hematocrit (Bld) [Volume fraction] 29.3 % Low 37-47 [facility] Comment on above: Performed By: #### L 500.2500, L100.0100 ####[facility] [address] [place], [address] Hemoglobin (Bld) [Mass/Vol] 8.7 g/dL Low 12.0-15.0 [facility] Comment on above: Performed By: #### L 500.2500, L100.0100 ####[facility] [address] [place], [address] IG% 0.700 Normal 0.0-0.9 [facility] Comment on above: Result Comment: IG% - Immature Granulocytes (promyelocytes, myelocytes andmetamyelocytes) > 1% indicates that a LEFT SHIFT is Present. Performed By: #### L 500.2500, L100.0100 ####[facility] [address] [place], [address] Lymphocytes/100 WBC (Bld) 9.7 % Low 19-41 [facility] Comment on above: Performed By: #### L 500.2500, L100.0100 ####[facility] [address] [place], [address] MCH (RBC) [Entitic mass] 22.0 pg Low 27.0-32.0 [facility] Comment on above: Performed By: #### L 500.2500, L100.0100 ####[facility] [address] [place], [address] MCHC (RBC) [Mass/Vol] 29.7 g/dL Low 32-36 [facility] Comment on above: Performed By: #### L 500.2500, L100.0100 ####[facility] [address] [place], [address] MCV (RBC) [Entitic vol] 74.2 fL Low 81-99 [facility] Comment on above: Performed By: #### L 500.2500, L100.0100 ####[facility] [address] [place], [address] Monocytes/100 WBC (Bld) 6.4 % Normal 0-10 [facility] Comment on above: Performed By: #### L 500.2500, L100.0100 ####[facility] [address] [place], [address] Neutrophils/100 WBC (Bld) 80.6 % High 47-70 [facility] Comment on above: Performed By: #### L 500.2500, L100.0100 ####[facility] [address] [place], [address] Nucleated RBC (Bld) [#/Vol] 0 10*3/uL Normal 0-5 [facility] Comment on above: Performed By: #### L 500.2500, L100.0100 ####[facility] [address] [place], [address] Platelet mean volume (Bld) [Entitic vol] 10.8 fL Normal 6.2-12.0 [facility] Comment on above: Performed By: #### L 500.2500, L100.0100 ####[facility] [address] [place], [address] Platelets (Bld) [#/Vol] 401 10*3/uL Normal 150-450 [facility] Comment on above: Performed By: #### L 500.2500, L100.0100 ####[facility] [address] [place], [address] RBC (Bld) [#/Vol] 3.95 10*6/uL Low 4.2-5.4 [facility] Comment on above: Performed By: #### L 500.2500, L100.0100 ####[facility] [address] [place], [address] RDW SD 52.0 fl High 35.1-43.9 [facility] Comment on above: Performed By: #### L 500.2500, L100.0100 ####[facility] [address] [place], [address] WBC (Bld) [#/Vol] 8.9 10*3/uL Normal 4.4-11.0 [facility] Comment on above: Performed By: #### L 500.2500, L100.0100 ####[facility] [address] [place], [address] Basic Metabolic Profile (BMP )on 02-21-2025 BUN/CRE 31.0 RATIO High 10-20 [facility] Comment on above: Performed By: #### L 100.0100, L500.2500 ####[facility] [address] [place], [address] Calcium [Mass/Vol] 9.4 mg/dL Normal 7.6-11.0 [facility] Comment on above: Performed By: #### L 100.0100, L500.2500 ####[facility] [address] [place], [address] Chloride [Moles/Vol] 97 mmol/L Low 98-108 [facility] Comment on above: Performed By: #### L 100.0100, L500.2500 ####[facility] [address] [place], [address] CO2 [Moles/Vol] 21.7 mmol/L Normal 21.0-32.0 [facility] Comment on above: Performed By: #### L 100.0100, L500.2500 ####[facility] [address] [place], [address] Creatinine [Mass/Vol] 1.75 mg/dL High 0.70-1.20 [facility] Comment on above: Performed By: #### L 100.0100, L500.2500 ####[facility] [address] [place], [address] ECRCL 33.37 ml/min Low 50-250 [facility] Comment on above: Performed By: #### L 100.0100, L500.2500 ####[facility] [address] [place], [address] GAP 13 Normal 5-15 [facility] Comment on above: Performed By: #### L 100.0100, L500.2500 ####[facility] [address] [place], [address] GFR/1.73 sq M.predicted among non-blacks MDRD (S/P/Bld) [Vol rate/Area] 30 mL/min/{1.73_m2} Low >60 [facility] Comment on above: Result Comment: mL/m in/1.73m2 CKD-EPI Creatinine Equation (2020) Performed By: #### L 100.0100, L500.2500 ####[facility] [address] [place], [address] Glucose [Mass/Vol] 120 mg/dL High 70-99 [facility] Comment on above: Performed By: #### L 100.0100, L500.2500 ####[facility] [address] [place], [address] Potassium [Moles/Vol] 3.7 mmol/L Normal 3.3-5.1 [facility] Comment on above: Performed By: #### L 100.0100, L500.2500 ####[facility] [address] [place], [address] Sodium [Moles/Vol] 132 mmol/L Low 133-145 [facility] Comment on above: Performed By: #### L 100.0100, L500.2500 ####[facility] [address] [place], [address] Urea nitrogen [Mass/Vol] 54 mg/dL High 4-19 [facility] Comment on above: Performed By: #### L 100.0100, L500.2500 ####[facility] [address] [place], [address] Bedside Glucoseon 02-21-2025 FINGERSTICK GLU 114 mg/dL High 74-106 [facility] Comment on above: Result Comment: VI GEMENT OF PATIENT CARE PER NURSING PROTOCOL Performed By: #### L 501.080 ####[facility] [address] [place], [address] FINGERSTICK GLU 162 mg/dL High 74-106 [facility] Comment on above: Result Comment: VI GEMENT OF PATIENT CARE PER NURSING PROTOCOL Performed By: #### L 501.080 ####[facility] [address] [place], [address] FINGERSTICK GLU 51 mg/dL Low 74-106 [facility] Comment on above: Result Comment: VI GEMENT OF PATIENT CARE PER NURSING PROTOCOL Performed By: #### L 501.080 ####[facility] [address] [place], [address] FINGERSTICK GLU 89 mg/dL Normal 74-106 [facility] Comment on above: Result Comment: VI GEMENT OF PATIENT CARE PER NURSING PROTOCOL Performed By: #### L 501.080 ####[facility] [address] [place], [address] FINGERSTICK GLU 73 mg/dL Low 74-106 [facility] Comment on above: Result Comment: VI GEMENT OF PATIENT CARE PER NURSING PROTOCOL Performed By: #### L 501.080 ####[facility] [address] [place], [address] FINGERSTICK GLU 41 mg/dL Invalid Interpretation Code 74-106 [facility] Comment on above: Result Comment: Dr Shawn padilla FollowedMANAGEMENT OF PATIENT CARE PER NURSING PROTOCOL Performed By: #### L 501.080 ####[facility] [address] [place], [address] FINGERSTICK GLU 87 mg/dL Normal 74-106 [facility] Comment on above: Result Comment: VI MONTEJO OF PATIENT CARE PER NURSING PROTOCOL Performed By: #### L 501.080 ####[facility] [address] [place], [address] CBC W/Diff, Automatedon 05-2 Absolute Lymph 1.00 X10 3/uL Normal 0.83-4.51 [facility] Comment on above: Performed By: #### L 100.0100, L500.2500 ####[facility] [address] [place], [address] Absolute Neut 7.9 X10 3/uL High 2.0-7.7 [facility] Comment on above: Performed By: #### L 100.0100, L500.2500 ####[facility] [address] [place], [address] Basophils/100 WBC (Bld) 0.7 % Normal 0-1 [facility] Comment on above: Performed By: #### L 100.0100, L500.2500 ####[facility] [address] [place], [address] Eosinophils/100 WBC (Bld) 1.9 % Normal 0-5 [facility] Comment on above: Performed By: #### L 100.0100, L500.2500 ####[facility] [address] [place], [address] Erythrocyte distribution width (RBC) [Ratio] 19.6 % High 11.6-14.6 [facility] Comment on above: Performed By: #### L 100.0100, L500.2500 ####[facility] [address] [place], [address] Hematocrit (Bld) [Volume fraction] 28.2 % Low 37-47 [facility] Comment on above: Performed By: #### L 100.0100, L500.2500 ####[facility] [address] [place], [address] Hemoglobin (Bld) [Mass/Vol] 8.4 g/dL Low 12.0-15.0 [facility] Comment on above: Performed By: #### L 100.0100, L500.2500 ####[facility] [address] [place], [address] IG% 0.500 Normal 0.0-0.9 [facility] Comment on above: Result Comment: IG% - Immature Granulocytes (promyelocytes, myelocytes andmetamyelocytes) > 1% indicates that a LEFT SHIFT is Present. Performed By: #### L 100.0100, L500.2500 ####[facility] [address] [place], [address] Lymphocytes/100 WBC (Bld) 9.9 % Low 19-41 [facility] Comment on above: Performed By: #### L 100.0100, L500.2500 ####[facility] [address] [place], [address] MCH (RBC) [Entitic mass] 22.2 pg Low 27.0-32.0 [facility] Comment on above: Performed By: #### L 100.0100, L500.2500 ####[facility] [address] [place], [address] MCHC (RBC) [Mass/Vol] 29.8 g/dL Low 32-36 [facility] Comment on above: Performed By: #### L 100.0100, L500.2500 ####[facility] [address] [place], [address] MCV (RBC) [Entitic vol] 74.4 fL Low 81-99 [facility] Comment on above: Performed By: #### L 100.0100, L500.2500 ####[facility] [address] [place], [address] Monocytes/100 WBC (Bld) 8.3 % Normal 0-10 [facility] Comment on above: Performed By: #### L 100.0100, L500.2500 ####[facility] [address] [place], [address] Neutrophils/100 WBC (Bld) 78.7 % High 47-70 [facility] Comment on above: Performed By: #### L 100.0100, L500.2500 ####[facility] [address] [place], [address] Nucleated RBC (Bld) [#/Vol] 0 10*3/uL Normal 0-5 [facility] Comment on above: Performed By: #### L 100.0100, L500.2500 ####[facility] [address] [place], [address] Platelet mean volume (Bld) [Entitic vol] 10.1 fL Normal 6.2-12.0 [facility] Comment on above: Performed By: #### L 100.0100, L500.2500 ####[facility] [address] [place], [address] Platelets (Bld) [#/Vol] 392 10*3/uL Normal 150-450 [facility] Comment on above: Performed By: #### L 100.0100, L500.2500 ####[facility] [address] [place], [address] RBC (Bld) [#/Vol] 3.79 10*6/uL Low 4.2-5.4 [facility] Comment on above: Performed By: #### L 100.0100, L500.2500 ####[facility] [address], [address] RDW SD 51.9 fl High 35.1-43.9 [facility] Comment on above: Performed By: #### L 100.0100, L500.2500 ####[facility] [address] [place], [address] WBC (Bld) [#/Vol] 10.1 10*3/uL Normal 4.4-11.0 [facility] Comment on above: Performed By: #### L 100.0100, L500.2500 ####[facility] [address] [place], [address] EGD Reporton 02-21-2025 EGD Report Normal [facility] Basic Metabolic Profile (BMP )on 02-20-2025 BUN/CRE 35.1 RATIO High 10-20 [facility] Comment on above: Performed By: #### L 100.0100, L500.2500 ####[facility] [address] [place], [address] Calcium [Mass/Vol] 9.0 mg/dL Normal 7.6-11.0 [facility] Comment on above: Performed By: #### L 100.0100, L500.2500 ####[facility] [address] [place], [address] Chloride [Moles/Vol] 96 mmol/L Low 98-108 [facility] Comment on above: Performed By: #### L 100.0100, L500.2500 ####[facility] [address] [place], [address] CO2 [Moles/Vol] 19.6 mmol/L Low 21.0-32.0 [facility] Comment on above: Performed By: #### L 100.0100, L500.2500 ####[facility] [address] [place], [address] Creatinine [Mass/Vol] 2.47 mg/dL High 0.70-1.20 [facility] Comment on above: Performed By: #### L 100.0100, L500.2500 ####[facility] [address] [place], [address] ECRCL 23.85 ml/min Low 50-250 [facility] Comment on above: Performed By: #### L 100.0100, L500.2500 ####[facility] [address] [place], [address] GAP 14 Normal 5-15 [facility] Comment on above: Performed By: #### L 100.0100, L500.2500 ####[facility] [address] [place], [address] GFR/1.73 sq M.predicted among non-blacks MDRD (S/P/Bld) [Vol rate/Area] 20 mL/min/{1.73_m2} Low >60 [facility] Comment on above: Result Comment: mL/m in/1.73m2 CKD-EPI Creatinine Equation (2020) Performed By: #### L 100.0100, L500.2500 ####[facility] [address] [place], [address] Glucose [Mass/Vol] 143 mg/dL High 70-99 [facility] Comment on above: Performed By: #### L 100.0100, L500.2500 ####[facility] [address] [place], [address] Potassium [Moles/Vol] 3.8 mmol/L Normal 3.3-5.1 [facility] Comment on above: Performed By: #### L 100.0100, L500.2500 ####[facility] [address] [place], [address] Sodium [Moles/Vol] 129 mmol/L Low 133-145 [facility] Comment on above: Performed By: #### L 100.0100, L500.2500 ####[facility] [address] [place], [address] Urea nitrogen [Mass/Vol] 87 mg/dL High 4-19 [facility] Comment on above: Performed By: #### L 100.0100, L500.2500 ####[facility] [address] [place], [address] Bedside Glucoseon 02-20-2025 FINGERSTICK GLU 129 mg/dL High 74-106 [facility] Comment on above: Result Comment: VI GEMENT OF PATIENT CARE PER NURSING PROTOCOL Performed By: #### L 501.080 ####[facility] [address] [place], [address] FINGERSTICK GLU 138 mg/dL High 74-106 [facility] Comment on above: Result Comment: VI GEMENT OF PATIENT CARE PER NURSING PROTOCOL Performed By: #### L 501.080 ####[facility] [address] [place], [address] FINGERSTICK GLU 140 mg/dL High 74-106 [facility] Comment on above: Result Comment: Dr Shawn padilla FollowedMANAGEMENT OF PATIENT CARE PER NURSING PROTOCOL Performed By: #### L 501.080 ####[facility] [address] [place], [address] FINGERSTICK GLU 111 mg/dL High 74-106 [facility] Comment on above: Result Comment: VI GEMENT OF PATIENT CARE PER NURSING PROTOCOL Performed By: #### L 501.080 ####[facility] [address] [place], [address] FINGERSTICK GLU 142 mg/dL High 74-106 [facility] Comment on above: Result Comment: VI GEMENT OF PATIENT CARE PER NURSING PROTOCOL Performed By: #### L 501.080 ####[facility] [address] [place], [address] FINGERSTICK GLU 208 mg/dL High 74-106 [facility] Comment on above: Result Comment: VI GEMENT OF PATIENT CARE PER NURSING PROTOCOL Performed By: #### L 501.080 ####[facility] [address] [place], [address] CBC W/Diff, Automatedon 05-2 Absolute Lymph 1.04 X10 3/uL Normal 0.83-4.51 [facility] Comment on above: Performed By: #### L 100.0100, L500.2500 ####[facility] [address] [place], [address] Absolute Neut 9.6 X10 3/uL High 2.0-7.7 [facility] Comment on above: Performed By: #### L 100.0100, L500.2500 ####[facility] [address] [place], [address] Basophils/100 WBC (Bld) 0.8 % Normal 0-1 [facility] Comment on above: Performed By: #### L 100.0100, L500.2500 ####[facility] [address] [place], [address] Eosinophils/100 WBC (Bld) 2.0 % Normal 0-5 [facility] Comment on above: Performed By: #### L 100.0100, L500.2500 ####[facility] [address] [place], [address] Erythrocyte distribution width (RBC) [Ratio] 19.6 % High 11.6-14.6 [facility] Comment on above: Performed By: #### L 100.0100, L500.2500 ####[facility] [address] [place], [address] Hematocrit (Bld) [Volume fraction] 28.1 % Low 37-47 [facility] Comment on above: Performed By: #### L 100.0100, L500.2500 ####[facility] [address] [place], [address] Hemoglobin (Bld) [Mass/Vol] 8.3 g/dL Low 12.0-15.0 [facility] Comment on above: Performed By: #### L 100.0100, L500.2500 ####[facility] [address] [place], [address] IG% 0.500 Normal 0.0-0.9 [facility] Comment on above: Result Comment: IG% - Immature Granulocytes (promyelocytes, myelocytes andmetamyelocytes) > 1% indicates that a LEFT SHIFT is Present. Performed By: #### L 100.0100, L500.2500 ####[facility] [address] [place], [address] Lymphocytes/100 WBC (Bld) 8.8 % Low 19-41 [facility] Comment on above: Performed By: #### L 100.0100, L500.2500 ####[facility] [address] [place], [address] MCH (RBC) [Entitic mass] 21.7 pg Low 27.0-32.0 [facility] Comment on above: Performed By: #### L 100.0100, L500.2500 ####[facility] [address] [place], [address] MCHC (RBC) [Mass/Vol] 29.5 g/dL Low 32-36 [facility] Comment on above: Performed By: #### L 100.0100, L500.2500 ####[facility] [address] [place], [address] MCV (RBC) [Entitic vol] 73.4 fL Low 81-99 [facility] Comment on above: Performed By: #### L 100.0100, L500.2500 ####[facility] [address] [place], [address] Monocytes/100 WBC (Bld) 6.6 % Normal 0-10 [facility] Comment on above: Performed By: #### L 100.0100, L500.2500 ####[facility] [address] [place], [address] Neutrophils/100 WBC (Bld) 81.3 % High 47-70 [facility] Comment on above: Performed By: #### L 100.0100, L500.2500 ####[facility] [address] [place], [address] Nucleated RBC (Bld) [#/Vol] 0 10*3/uL Normal 0-5 [facility] Comment on above: Performed By: #### L 100.0100, L500.2500 ####[facility] [address] [place], [address] Platelet mean volume (Bld) [Entitic vol] 10.7 fL Normal 6.2-12.0 [facility] Comment on above: Performed By: #### L 100.0100, L500.2500 ####[facility] [address] [place], [address] Platelets (Bld) [#/Vol] 373 10*3/uL Normal 150-450 [facility] Comment on above: Performed By: #### L 100.0100, L500.2500 ####[facility] [address] [place], [address] RBC (Bld) [#/Vol] 3.83 10*6/uL Low 4.2-5.4 [facility] Comment on above: Performed By: #### L 100.0100, L500.2500 ####[facility] [address] [place], [address] RDW SD 50.8 fl High 35.1-43.9 [facility] Comment on above: Performed By: #### L 100.0100, L500.2500 ####[facility] [address] [place], [address] WBC (Bld) [#/Vol] 11.8 10*3/uL High 4.4-11.0 [facility] Comment on above: Performed By: #### L 100.0100, L500.2500 ####[facility] [address] [place], [address] Basic Metabolic Profile (BMP )on 02-19-2025 BUN/CRE 31.5 RATIO High 10-20 [facility] Comment on above: Performed By: #### L 100.0100, L500.2500 ####[facility] [address] [place], [address] Calcium [Mass/Vol] 9.0 mg/dL Normal 7.6-11.0 [facility] Comment on above: Performed By: #### L 100.0100, L500.2500 ####[facility] [address] [place], [address] Chloride [Moles/Vol] 96 mmol/L Low 98-108 [facility] Comment on above: Performed By: #### L 100.0100, L500.2500 ####[facility] [address] [place], [address] CO2 [Moles/Vol] 20.2 mmol/L Low 21.0-32.0 [facility] Comment on above: Performed By: #### L 100.0100, L500.2500 ####[facility] [address] [place], [address] Creatinine [Mass/Vol] 2.50 mg/dL High 0.70-1.20 [facility] Comment on above: Performed By: #### L 100.0100, L500.2500 ####[facility] [address] [place], [address] ECRCL 23.26 ml/min Low 50-250 [facility] Comment on above: Performed By: #### L 100.0100, L500.2500 ####[facility] [address] [place], [address] GAP 14 Normal 5-15 [facility] Comment on above: Performed By: #### L 100.0100, L500.2500 ####[facility] [address] [place], [address] GFR/1.73 sq M.predicted among non-blacks MDRD (S/P/Bld) [Vol rate/Area] 19 mL/min/{1.73_m2} Low >60 [facility] Comment on above: Result Comment: mL/m in/1.73m2 CKD-EPI Creatinine Equation (2020) Performed By: #### L 100.0100, L500.2500 ####[facility] [address] [place], [address] Glucose [Mass/Vol] 206 mg/dL High 70-99 [facility] Comment on above: Performed By: #### L 100.0100, L500.2500 ####[facility] [address] [place], [address] Potassium [Moles/Vol] 3.9 mmol/L Normal 3.3-5.1 [facility] Comment on above: Performed By: #### L 100.0100, L500.2500 ####[facility] [address] [place], [address] Sodium [Moles/Vol] 130 mmol/L Low 133-145 [facility] Comment on above: Performed By: #### L 100.0100, L500.2500 ####[facility] [address] [place], [address] Urea nitrogen [Mass/Vol] 79 mg/dL High 4-19 [facility] Comment on above: Performed By: #### L 100.0100, L500.2500 ####[facility] [address] [place], [address] Bedside Glucoseon 02-19-2025 FINGERSTICK GLU 151 mg/dL High [address] [place] [address] Comment on above: Result Comment: VI GEMENT OF PATIENT CARE PER NURSING PROTOCOL Performed By: #### L 501.080 ####[facility] [address] [place], [address] FINGERSTICK GLU 150 mg/dL High 74-106 [facility] Comment on above: Result Comment: VI GEMENT OF PATIENT CARE PER NURSING PROTOCOL Performed By: #### L 501.080 ####[facility] [address] [place], [address] FINGERSTICK GLU 157 mg/dL High [address] [place] [address] Comment on above: Result Comment: Dr Shawn padilla FollowedInsulin GivenMANAGEMENT OF PATIENT CARE PER NURSING PROTOCOL Performed By: #### L 501.080 ####[facility] [address] [place], [address] FINGERSTICK GLU 214 mg/dL High [address] [place] [address] Comment on above: Result Comment: VI GEMENT OF PATIENT CARE PER NURSING PROTOCOL Performed By: #### L 501.080 ####[facility] [address] [place], [address] CBC W/Diff, Automatedon 01-26 Absolute Lymph 1.01 X10 3/uL Normal 0.83-4.51 [facility] Comment on above: Performed By: #### L 100.0100, L500.2500 ####[facility] [address] [place], [address] Absolute Neut 11.5 X10 3/uL High 2.0-7.7 [facility] Comment on above: Performed By: #### L 100.0100, L500.2500 ####[facility] [address] [place], [address] Basophils/100 WBC (Bld) 0.7 % Normal 0-1 [facility] Comment on above: Performed By: #### L 100.0100, L500.2500 ####[facility] [address] [place], [address] Eosinophils/100 WBC (Bld) 1.9 % Normal 0-5 [facility] Comment on above: Performed By: #### L 100.0100, L500.2500 ####[facility] [address] [place], [address] Erythrocyte distribution width (RBC) [Ratio] 19.7 % High 11.6-14.6 [facility] Comment on above: Performed By: #### L 100.0100, L500.2500 ####[facility] [address] [place], [address] Hematocrit (Bld) [Volume fraction] 26.6 % Low 37-47 [facility] Comment on above: Performed By: #### L 100.0100, L500.2500 ####[facility] [address] [place], [address] Hemoglobin (Bld) [Mass/Vol] 7.8 g/dL Low 12.0-15.0 [facility] Comment on above: Performed By: #### L 100.0100, L500.2500 ####[facility] [address] [place], [address] IG% 0.600 Normal 0.0-0.9 [facility] Comment on above: Result Comment: IG% - Immature Granulocytes (promyelocytes, myelocytes andmetamyelocytes) > 1% indicates that a LEFT SHIFT is Present. Performed By: #### L 100.0100, L500.2500 ####[facility] [address] [place], [address] Lymphocytes/100 WBC (Bld) 7.3 % Low 19-41 [facility] Comment on above: Performed By: #### L 100.0100, L500.2500 ####[facility] [address] [place], [address] MCH (RBC) [Entitic mass] 21.9 pg Low 27.0-32.0 [facility] Comment on above: Performed By: #### L 100.0100, L500.2500 ####[facility] [address] [place], [address] MCHC (RBC) [Mass/Vol] 29.3 g/dL Low 32-36 [facility] Comment on above: Performed By: #### L 100.0100, L500.2500 ####[facility] [address] [place], [address] MCV (RBC) [Entitic vol] 74.7 fL Low 81-99 [facility] Comment on above: Performed By: #### L 100.0100, L500.2500 ####[facility] [address] [place], [address] Monocytes/100 WBC (Bld) 6.8 % Normal 0-10 [facility] Comment on above: Performed By: #### L 100.0100, L500.2500 ####[facility] [address] [place], [address] Neutrophils/100 WBC (Bld) 82.7 % High 47-70 [facility] Comment on above: Performed By: #### L 100.0100, L500.2500 ####[facility] [address] [place], [address] Nucleated RBC (Bld) [#/Vol] 0 10*3/uL Normal 0-5 [facility] Comment on above: Performed By: #### L 100.0100, L500.2500 ####[facility] [address] [place], [address] Platelet mean volume (Bld) [Entitic vol] 11.4 fL Normal 6.2-12.0 [facility] Comment on above: Performed By: #### L 100.0100, L500.2500 ####[facility] [address] [place], [address] Platelets (Bld) [#/Vol] 359 10*3/uL Normal 150-450 [facility] Comment on above: Performed By: #### L 100.0100, L500.2500 ####[facility] [address] [place], [address] RBC (Bld) [#/Vol] 3.56 10*6/uL Low 4.2-5.4 [facility] Comment on above: Performed By: #### L 100.0100, L500.2500 ####[facility] [address] [place], [address] RDW SD 52.3 fl High 35.1-43.9 [facility] Comment on above: Performed By: #### L 100.0100, L500.2500 ####[facility] [address] [place], [address] WBC (Bld) [#/Vol] 13.9 10*3/uL High 4.4-11.0 [facility] Comment on above: Performed By: #### L 100.0100, L500.2500 ####[facility] [address] [place], [address] Basic Metabolic Profile (BMP )on 02-18-2024 BUN/CRE 29.3 RATIO High 10-20 [facility] Comment on above: Performed By: #### L 100.0100, L500.2500 ####[facility] [address] [place], [address] Calcium [Mass/Vol] 9.1 mg/dL Normal 7.6-11.0 [facility] Comment on above: Performed By: #### L 100.0100, L500.2500 ####[facility] [address] [place], [address] Chloride [Moles/Vol] 98 mmol/L Normal 98-108 [facility] Comment on above: Performed By: #### L 100.0100, L500.2500 ####[facility] [address] [place], [address] CO2 [Moles/Vol] 21.2 mmol/L Normal 21.0-32.0 [facility] Comment on above: Performed By: #### L 100.0100, L500.2500 ####[facility] [address] [place], [address] Creatinine [Mass/Vol] 2.31 mg/dL High 0.70-1.20 [facility] Comment on above: Performed By: #### L 100.0100, L500.2500 ####[facility] [address] [place], [address] ECRCL 24.85 ml/min Low 50-250 [facility] Comment on above: Performed By: #### L 100.0100, L500.2500 ####[facility] [address] [place], [address] GAP 14 Normal 5-15 [facility] Comment on above: Performed By: #### L 100.0100, L500.2500 ####[facility] [address] [place], [address] GFR/1.73 sq M.predicted among non-blacks MDRD (S/P/Bld) [Vol rate/Area] 21 mL/min/{1.73_m2} Low >60 [facility] Comment on above: Result Comment: mL/m in/1.73m2 CKD-EPI Creatinine Equation (2020) Performed By: #### L 100.0100, L500.2500 ####[facility] [address] [place], [address] Glucose [Mass/Vol] 218 mg/dL High 70-99 [facility] Comment on above: Performed By: #### L 100.0100, L500.2500 ####[facility] [address] [place], [address] Potassium [Moles/Vol] 3.9 mmol/L Normal 3.3-5.1 [facility] Comment on above: Performed By: #### L 100.0100, L500.2500 ####[facility] [address] [place], [address] Sodium [Moles/Vol] 133 mmol/L Normal 133-145 [facility] Comment on above: Performed By: #### L 100.0100, L500.2500 ####[facility] [address] [place], [address] Urea nitrogen [Mass/Vol] 68 mg/dL High 4-19 [facility] Comment on above: Performed By: #### L 100.0100, L500.2500 ####[facility] [address] [place], [address] Bedside Glucoseon 02-18-2025 FINGERSTICK GLU 178 mg/dL High 74-106 [facility] Comment on above: Result Comment: Dr Shawn padilla FollowedMANAGEMENT OF PATIENT CARE PER NURSING PROTOCOL Performed By: #### L 501.080 ####[facility] [address] [place], [address] FINGERSTICK GLU 181 mg/dL High 74-106 [facility] Comment on above: Result Comment: Dr Shawn padilla FollowedMANAGEMENT OF PATIENT CARE PER NURSING PROTOCOL Performed By: #### L 501.080 ####[facility] [address] [place], [address] FINGERSTICK GLU 197 mg/dL High 74-106 [facility] Comment on above: Result Comment: VI GEMENT OF PATIENT CARE PER NURSING PROTOCOL Performed By: #### L 501.080 ####[facility] [address] [place], [address] FINGERSTICK GLU 200 mg/dL High 74-106 [facility] Comment on above: Result Comment: VI GEMENT OF PATIENT CARE PER NURSING PROTOCOL Performed By: #### L 501.080 ####[facility] [address] [place], [address] CBC W/Diff, Automatedon 01-26 Anisocytosis Ql (Bld) 2+ Normal [facility] Comment on above: Performed By: #### L 100.0100, L500.2500 ####[facility] [address] [place], [address] OVALOCYTE 2+ Normal [facility] Comment on above: Performed By: #### L 100.0100, L500.2500 ####[facility] [address] [place], [address] PLT EST ADEQUATE Normal ADEQ [facility] Comment on above: Performed By: #### L 100.0100, L500.2500 ####[facility] [address] [place], [address] SMEAR COMMENT SCANNED Normal [facility] Comment on above: Performed By: #### L 100.0100, L500.2500 ####[facility] [address] [place], [address] Basic Metabolic Profile (BMP )on 02-17-2025 BUN/CRE 34.0 RATIO High 10-20 [facility] Comment on above: Performed By: #### L 100.0100, L500.2500 ####[facility] [address] [place], [address] Calcium [Mass/Vol] 9.5 mg/dL Normal 7.6-11.0 [facility] Comment on above: Performed By: #### L 100.0100, L500.2500 ####[facility] [address] [place], [address] Chloride [Moles/Vol] 97 mmol/L Low 98-108 [facility] Comment on above: Performed By: #### L 100.0100, L500.2500 ####[facility] [address] [place], [address] CO2 [Moles/Vol] 22.8 mmol/L Normal 21.0-32.0 [facility] Comment on above: Performed By: #### L 100.0100, L500.2500 ####[facility] [address] [place], [address] Creatinine [Mass/Vol] 2.35 mg/dL High 0.70-1.20 [facility] Comment on above: Performed By: #### L 100.0100, L500.2500 ####[facility] [address] [place], [address] ECRCL 24.22 ml/min Low 50-250 [facility] Comment on above: Performed By: #### L 100.0100, L500.2500 ####[facility] [address] [place], [address] GAP 15 Normal 5-15 [facility] Comment on above: Performed By: #### L 100.0100, L500.2500 ####[facility] [address] [place], [address] GFR/1.73 sq M.predicted among non-blacks MDRD (S/P/Bld) [Vol rate/Area] 21 mL/min/{1.73_m2} Low >60 [facility] Comment on above: Result Comment: mL/m in/1.73m2 CKD-EPI Creatinine Equation (2021) Performed By: #### L 100.0100, L500.2500 ####[facility] [address] [place], [address] Glucose [Mass/Vol] 256 mg/dL High 70-99 [facility] Comment on above: Performed By: #### L 100.0100, L500.2500 ####[facility] [address] [place], [address] Potassium [Moles/Vol] 3.9 mmol/L Normal 3.3-5.1 [facility] Comment on above: Performed By: #### L 100.0100, L500.2500 ####[facility] [address] [place], [address] Sodium [Moles/Vol] 135 mmol/L Normal 133-145 [facility] Comment on above: Performed By: #### L 100.0100, L500.2500 ####[facility] [address] [place], [address] Urea nitrogen [Mass/Vol] 80 mg/dL High 4-19 [facility] Comment on above: Performed By: #### L 100.0100, L500.2500 ####[facility] [address] [place], [address] Bedside Glucoseon 02-17-2025 FINGERSTICK GLU 169 mg/dL High 74-106 [facility] Comment on above: Result Comment: VI GEMENT OF PATIENT CARE PER NURSING PROTOCOL Performed By: #### L 501.080 ####[facility] [address] [place], [address] FINGERSTICK GLU 150 mg/dL High 74-106 [facility] Comment on above: Result Comment: VI GEMENT OF PATIENT CARE PER NURSING PROTOCOL Performed By: #### L 501.080 ####[facility] [address] [place], [address] FINGERSTICK GLU 221 mg/dL High 74-106 [facility] Comment on above: Result Comment: VI GEMENT OF PATIENT CARE PER NURSING PROTOCOL Performed By: #### L 501.080 ####[facility] [address] [place], [address] FINGERSTICK GLU 240 mg/dL High 74-106 [facility] Comment on above: Result Comment: VI GEMENT OF PATIENT CARE PER NURSING PROTOCOL Performed By: #### L 501.080 ####[facility] [address] [place], [address] Blood Gases by [facility] 025 DANIEL TEST Positive Normal [facility] Comment on above: Performed By: #### L 9000.0800 ####[facility] [address] [place], [address] Base excess Calc (Bld) [Moles/Vol] 4 mmol/L High -2 to +2 [facility] Comment on above: Performed By: #### L 9000.0800 ####[facility] [address] [place], [address] Blood Gas Type ART Normal [facility] Comment on above: Performed By: #### L 9000.0800 ####[facility] [address] [place], [address] CO2 [Moles/Vol] 29 mmol/L Normal [facility] Comment on above: Performed By: #### L 9000.0800 ####[facility] [address] [place], [address] FI02 24.0 Normal [facility] Comment on above: Performed By: #### L 9000.0800 ####[facility] [address] [place], [address] HCO3 (Bld) [Moles/Vol] 27.6 mmol/L High 22-26 [facility] Comment on above: Performed By: #### L 8999.0800 ####[facility] [address] [place], [address] Mode PS Normal [facility] Comment on above: Performed By: #### L 8999.08 ####[facility] [address] [place], [address] O2 Delivery Dev Adult Vent Normal [facility] Comment on above: Performed By: #### L 8999.08 ####[facility] [address] [place], [address] pCO2 36.5 mmHg Normal 35-45 [facility] Comment on above: Performed By: #### L 8999.08 ####[facility] [address] [place], [address] PEEP 5 Normal [facility] Comment on above: Performed By: #### L 8999.08 ####[facility] [address] [place], [address] pH (Bld) 7.49 [pH] High 7.35-7.45 [facility] Comment on above: Performed By: #### L 8999.08 ####[facility] [address] [place], [address] PO2 65 mmHG Low 75-100 [facility] Comment on above: Performed By: #### L 8999.08 ####[facility] [address] [place], [address] SITE R Radial Normal [facility] Comment on above: Performed By: #### L 8999.08 ####[facility] [address] [place], [address] SO2 94 Low 95-99 [facility] Comment on above: Performed By: #### L 8999.0800 ####[facility] [address] [place], [address] CBC W/Diff, Automatedon 05-2 -2024 Absolute Lymph 1.14 X10 3/uL Normal 0.83-4.51 [facility] Comment on above: Performed By: #### L 100.0100, L500.2500 ####[facility] [address] [place], [address] Absolute Neut 13.0 X10 3/uL High 2.0-7.7 [facility] Comment on above: Performed By: #### L 100.0100, L500.2500 ####[facility] [address] [place], [address] Basophils/100 WBC (Bld) 0.5 % Normal 0-1 [facility] Comment on above: Performed By: #### L 100.0100, L500.2500 ####[facility] [address] [place], [address] Eosinophils/100 WBC (Bld) 1.3 % Normal 0-5 [facility] Comment on above: Performed By: #### L 100.0100, L500.2500 ####[facility] [address] [place], [address] Erythrocyte distribution width (RBC) [Ratio] 19.9 % High 11.6-14.6 [facility] Comment on above: Performed By: #### L 100.0100, L500.2500 ####[facility] [address] [place], [address] Hematocrit (Bld) [Volume fraction] 30.7 % Low 37-47 [facility] Comment on above: Performed By: #### L 100.0100, L500.2500 ####[facility] [address] [place], [address] Hemoglobin (Bld) [Mass/Vol] 9.0 g/dL Low 12.0-15.0 [facility] Comment on above: Performed By: #### L 100.0100, L500.2500 ####[facility] [address] [place], [address] IG% 0.600 Normal 0.0-0.9 [facility] Comment on above: Result Comment: IG% - Immature Granulocytes (promyelocytes, myelocytes andmetamyelocytes) > 1% indicates that a LEFT SHIFT is Present. Performed By: #### L 100.0100, L500.2500 ####[facility] [address] [place], [address] Lymphocytes/100 WBC (Bld) 7.2 % Low 19-41 [facility] Comment on above: Performed By: #### L 100.0100, L500.2500 ####[facility] [address] [place], [address] MCH (RBC) [Entitic mass] 22.0 pg Low 27.0-32.0 [facility] Comment on above: Performed By: #### L 100.0100, L500.2500 ####[facility] [address] [place], [address] MCHC (RBC) [Mass/Vol] 29.3 g/dL Low 32-36 [facility] Comment on above: Performed By: #### L 100.0100, L500.2500 ####[facility] [address] [place], [address] MCV (RBC) [Entitic vol] 74.9 fL Low 81-99 [facility] Comment on above: Performed By: #### L 100.0100, L500.2500 ####[facility] [address] [place], [address] Monocytes/100 WBC (Bld) 8.0 % Normal 0-10 [facility] Comment on above: Performed By: #### L 100.0100, L500.2500 ####[facility] [address] [place], [address] Neutrophils/100 WBC (Bld) 82.4 % High 47-70 [facility] Comment on above: Performed By: #### L 100.0100, L500.2500 ####[facility] [address] [place], [address] Nucleated RBC (Bld) [#/Vol] 0 10*3/uL Normal 0-5 [facility] Comment on above: Performed By: #### L 100.0100, L500.2500 ####[facility] [address] [place], [address] Platelet mean volume (Bld) [Entitic vol] 10.8 fL Normal 6.2-12.0 [facility] Comment on above: Performed By: #### L 100.0100, L500.2500 ####[facility] [address] [place], [address] Platelets (Bld) [#/Vol] 323 10*3/uL Normal 150-450 [facility] Comment on above: Performed By: #### L 100.0100, L500.2500 ####[facility] [address] [place], [address] RBC (Bld) [#/Vol] 4.10 10*6/uL Low 4.2-5.4 [facility] Comment on above: Performed By: #### L 100.0100, L500.2500 ####[facility] [address] [place], [address] RDW SD 51.8 fl High 35.1-43.9 [facility] Comment on above: Performed By: #### L 100.0100, L500.2500 ####[facility] [address] [place], [address] WBC (Bld) [#/Vol] 15.8 10*3/uL High 4.4-11.0 [facility] Comment on above: Performed By: #### L 100.0100, L500.2500 ####[facility] [address] [place], [address] Chest 1 View (Portable)on Chest 1 View (Portable) Normal [facility] Basic Metabolic Profile (BMP )on 02-16-2025 Urea nitrogen [Mass/Vol] 130 mg/dL Invalid Interpretation Code 01-13 [facility] Comment on above: Result Comment: Crit ical Result(s) Called at:02/16/2025-08:32 by: Salvatore to Rufina Mena??Results read back by same. Performed By: #### L 501.5200, L501.2300, L500.2500 ####[facility] [address] [place], [address] Bedside Glucoseon 02-16-2025 FINGERSTICK GLU 224 mg/dL High 74-106 [facility] Comment on above: Result Comment: VI GEMENT OF PATIENT CARE PER NURSING PROTOCOL Performed By: #### L 501.080 ####[facility] [address] [place], [address] FINGERSTICK GLU 200 mg/dL High 74-106 [facility] Comment on above: Result Comment: VI GEMENT OF PATIENT CARE PER NURSING PROTOCOL Performed By: #### L 501.080 ####[facility] [address] [place], [address] FINGERSTICK GLU 143 mg/dL High 74-106 [facility] Comment on above: Result Comment: VI GEMENT OF PATIENT CARE PER NURSING PROTOCOL Performed By: #### L 501.080 ####[facility] [address] [place], [address] FINGERSTICK GLU 103 mg/dL Normal 74-106 [facility] Comment on above: Result Comment: VI GEMENT OF PATIENT CARE PER NURSING PROTOCOL Performed By: #### L 501.080 ####[facility] [address] [place], [address] FINGERSTICK GLU 153 mg/dL High 74-106 [facility] Comment on above: Result Comment: VI GEMENT OF PATIENT CARE PER NURSING PROTOCOL Performed By: #### L 501.080 ####[facility] [address] [place], [address] FINGERSTICK GLU 192 mg/dL High 74-106 [facility] Comment on above: Result Comment: VI GEMENT OF PATIENT CARE PER NURSING PROTOCOL Performed By: #### L 501.080 ####[facility] [address] [place], [address] CBC W/Diff, Automatedon 05-2 3-2024 Absolute Lymph 1.18 X10 3/uL Normal 0.83-4.51 [facility] Comment on above: Performed By: #### L 100.0100 ####[facility] [address] [place], [address] Absolute Neut 11.2 X10 3/uL High 2.0-7.7 [facility] Comment on above: Performed By: #### L 100.0100 ####[facility] [address] [place], [address] Basophils/100 WBC (Bld) 0.6 % Normal 0-1 [facility] Comment on above: Performed By: #### L 100.0100 ####[facility] [address] [place], [address] Eosinophils/100 WBC (Bld) 1.7 % Normal 0-5 [facility] Comment on above: Performed By: #### L 100.0100 ####[facility] [address] [place], [address] Erythrocyte distribution width (RBC) [Ratio] 19.5 % High 11.6-14.6 [facility] Comment on above: Performed By: #### L 100.0100 ####[facility] [address] [place], [address] Hematocrit (Bld) [Volume fraction] 28.9 % Low 37-47 [facility] Comment on above: Performed By: #### L 100.0100 ####[facility] [address] [place], [address] Hemoglobin (Bld) [Mass/Vol] 8.7 g/dL Low 12.0-15.0 [facility] Comment on above: Performed By: #### L 100.0100 ####[facility] [address] [place], [address] IG% 0.600 Normal 0.0-0.9 [facility] Comment on above: Result Comment: IG% - Immature Granulocytes (promyelocytes, myelocytes andmetamyelocytes) > 1% indicates that a LEFT SHIFT is Present. Performed By: #### L 100.0100 ####[facility] [address] [place], [address] Lymphocytes/100 WBC (Bld) 8.5 % Low 19-41 [facility] Comment on above: Performed By: #### L 100.0100 ####[facility] [address] [place], [address] MCH (RBC) [Entitic mass] 22.2 pg Low 27.0-32.0 [facility] Comment on above: Performed By: #### L 100.0100 ####[facility] [address] [place], [address] MCHC (RBC) [Mass/Vol] 30.1 g/dL Low 32-36 [facility] Comment on above: Performed By: #### L 100.0100 ####[facility] [address] [place], [address] MCV (RBC) [Entitic vol] 73.7 fL Low 81-99 [facility] Comment on above: Performed By: #### L 100.0100 ####[facility] [address] [place], [address] Monocytes/100 WBC (Bld) 8.4 % Normal 0-10 [facility] Comment on above: Performed By: #### L 100.0100 ####[facility] [address] [place], [address] Neutrophils/100 WBC (Bld) 80.2 % High 47-70 [facility] Comment on above: Performed By: #### L 100.0100 ####[facility] [address] [place], [address] Nucleated RBC (Bld) [#/Vol] 0 10*3/uL Normal 0-5 [facility] Comment on above: Performed By: #### L 100.0100 ####[facility] [address] [place], [address] Platelet mean volume (Bld) [Entitic vol] 11.1 fL Normal 6.2-12.0 [facility] Comment on above: Performed By: #### L 100.0100 ####[facility] [address] [place], [address] Platelets (Bld) [#/Vol] 257 10*3/uL Normal 150-450 [facility] Comment on above: Performed By: #### L 100.0100 ####[facility] [address] [place], [address] RBC (Bld) [#/Vol] 3.92 10*6/uL Low 4.2-5.4 [facility] Comment on above: Performed By: #### L 100.0100 ####[facility] [address] [place], [address] RDW SD 49.7 fl High 35.1-43.9 [facility] Comment on above: Performed By: #### L 100.0100 ####[facility] [address] [place], [address] WBC (Bld) [#/Vol] 13.9 10*3/uL High 4.4-11.0 [facility] Comment on above: Performed By: #### L 100.0100 ####[facility] [address] [place], [address] CPK Total, Creatine Kinaseon 02-16-2025 CPK TOTAL 34 U/L Normal 24-195 [facility] Comment on above: Performed By: #### L 501.3620 ####[facility] [address] [place], [address] Magnesiumon 02-16-2025 Magnesium [Mass/Vol] 2.3 mg/dL High 1.5-2.2 [facility] Comment on above: Performed By: #### L 501.5200, L501.2300, L500.2500 ####[facility] [address] [place], [address] Phosphoruson 02-16-2025 Phosphate [Mass/Vol] 4.7 mg/dL High 2.7-4.5 [facility] Comment on above: Performed By: #### L 501.5200, L501.2300, L500.2500 ####[facility] [address] [place], [address] Basic Metabolic Profile (BMP )on 02-15-2025 BUN/CRE 53.6 RATIO High 10-20 [facility] Comment on above: Performed By: #### L 100.0100, L501.5200, L500.2500 ####[facility] [address] [place], [address] Calcium [Mass/Vol] 8.6 mg/dL Normal 7.6-11.0 [facility] Comment on above: Performed By: #### L 100.0100, L501.5200, L500.2500 ####[facility] [address] [place], [address] Chloride [Moles/Vol] 96 mmol/L Low 98-108 [facility] Comment on above: Performed By: #### L 100.0100, L501.5200, L500.2500 ####[facility] [address] [place], [address] CO2 [Moles/Vol] 26.7 mmol/L Normal 21.0-32.0 [facility] Comment on above: Performed By: #### L 100.0100, L501.5200, L500.2500 ####[facility] [address] [place], [address] Creatinine [Mass/Vol] 2.22 mg/dL High 0.70-1.20 [facility] Comment on above: Performed By: #### L 100.0100, L501.5200, L500.2500 ####[facility] [address] [place], [address] ECRCL 26.18 ml/min Low 50-250 [facility] Comment on above: Performed By: #### L 100.0100, L501.5200, L500.2500 ####[facility] [address] [place], [address] GAP 17 High 5-15 [facility] Comment on above: Performed By: #### L 100.0100, L501.5200, L500.2500 ####[facility] [address] [place], [address] GFR/1.73 sq M.predicted among non-blacks MDRD (S/P/Bld) [Vol rate/Area] 22 mL/min/{1.73_m2} Low >60 [facility] Comment on above: Result Comment: mL/m in/1.73m2 CKD-EPI Creatinine Equation (2020) Performed By: #### L 100.0100, L501.5200, L500.2500 ####[facility] [address] [place], [address] Glucose [Mass/Vol] 237 mg/dL High 70-99 [facility] Comment on above: Performed By: #### L 100.0100, L501.5200, L500.2500 ####[facility] [address] [place], [address] Potassium [Moles/Vol] 3.0 mmol/L Low 3.3-5.1 [facility] Comment on above: Performed By: #### L 100.0100, L501.5200, L500.2500 ####[facility] [address] [place], [address] Sodium [Moles/Vol] 139 mmol/L Normal 133-145 [facility] Comment on above: Performed By: #### L 100.0100, L501.5200, L500.2500 ####[facility] [address] [place], [address] Urea nitrogen [Mass/Vol] 119 mg/dL Invalid Interpretation Code 4-19 [facility] Comment on above: Result Comment: Crit ical Result(s) Called at: 0515 by:??HERMELINDO HAVEN TO CHON Results read back by same. Performed By: #### L 100.0100, L501.5200, L500.2500 ####[facility] [address] [place], [address] Bedside Glucoseon 02-15-2025 FINGERSTICK GLU 220 mg/dL High 74-106 [facility] Comment on above: Result Comment: VI MONTEJO OF PATIENT CARE PER NURSING PROTOCOL Performed By: #### L 501.080 ####[facility] [address] [place], [address] FINGERSTICK GLU 208 mg/dL High 74-106 [facility] Comment on above: Result Comment: VI GEMENT OF PATIENT CARE PER NURSING PROTOCOL Performed By: #### L 501.080 ####[facility] [address] [place], [address] FINGERSTICK GLU 241 mg/dL High [address] [facility] Comment on above: Result Comment: VI GEMENT OF PATIENT CARE PER NURSING PROTOCOL Performed By: #### L 501.080 ####[facility] [address] [place], [address] FINGERSTICK GLU 201 mg/dL High [address] [place] [address] Comment on above: Result Comment: VI GEMENT OF PATIENT CARE PER NURSING PROTOCOL Performed By: #### L 501.080 ####[facility] [address] [place], [address] FINGERSTICK GLU 222 mg/dL High [facility] Comment on above: Result Comment: VI GEMENT OF PATIENT CARE PER NURSING PROTOCOL Performed By: #### L 501.080 ####[facility] [address] [place], [address] FINGERSTICK GLU 232 mg/dL High [address] [place] [address] Comment on above: Result Comment: VI GEMENT OF PATIENT CARE PER NURSING PROTOCOL Performed By: #### L 501.080 ####[facility] [address] [place], [address] Blood Gases by [facility] 025 DANIEL TEST Positive Normal [facility] Comment on above: Performed By: #### L 9000.0800 ####[facility] [address] [place], [address] Base excess Calc (Bld) [Moles/Vol] 10 mmol/L High -2 to +2 [facility] Comment on above: Performed By: #### L 9000.0800 ####[facility] [address] [place], [address] Blood Gas Type ART Normal [facility] Comment on above: Performed By: #### L 9000.0800 ####[facility] [address] [place], [address] CO2 [Moles/Vol] 34 mmol/L Normal [facility] Comment on above: Performed By: #### L 9000.0800 ####[facility] [address] [place], [address] FI02 30.0 Normal [facility] Comment on above: Performed By: #### L 9000.0800 ####[facility] [address] [place], [address] HCO3 (Bld) [Moles/Vol] 32.7 mmol/L High 22-26 [facility] Comment on above: Performed By: #### L 9000.0800 ####[facility] [address] [place], [address] Mode AC Normal [facility] Comment on above: Performed By: #### L 9000.0800 ####[facility] [address] [place], [address] O2 Delivery Dev Adult Vent Normal [facility] Comment on above: Performed By: #### L 9000.0800 ####[facility] [address] [place], [address] pCO2 40.4 mmHg Normal 35-45 [facility] Comment on above: Performed By: #### L 9000.0800 ####[facility] [address] [place], [address] PEEP 5 Normal [facility] Comment on above: Performed By: #### L 9000.0800 ####[place] [facility] [address] [place], [address] pH (Bld) 7.52 [pH] High 7.35-7.45 [facility] Comment on above: Performed By: #### L 9000.0800 ####[facility] [address] [place], [address] PO2 72 mmHG Low 75-100 [facility] Comment on above: Performed By: #### L 9000.0800 ####[facility] [address] [place], [address] RR 14 Normal [facility] Comment on above: Performed By: #### L 9000.0800 ####[facility] [address] [place], [address] SITE R Radial Normal [facility] Comment on above: Performed By: #### L 0.0800 ####[facility] [address] [place], [address] SO2 96 Normal 95-99 [facility] Comment on above: Performed By: #### L 9000.0800 ####[facility] [address] [place], [address] Vt 450.0 mL Normal [facility] Comment on above: Performed By: #### L 9000.0800 ####[facility] [address] [place], [address] CBC W/Diff, Automatedon 05-2 -2024 Absolute Lymph 0.92 X10 3/uL Normal 0.83-4.51 [facility] Comment on above: Performed By: #### L 100.0100, L501.5200, L500.2500 ####[facility] [address] [place], [address] Absolute Neut 9.8 X10 3/uL High 2.0-7.7 [facility] Comment on above: Performed By: #### L 100.0100, L501.5200, L500.2500 ####[facility] [address] [place], [address] Basophils/100 WBC (Bld) 0.7 % Normal 0-1 [facility] Comment on above: Performed By: #### L 100.0100, L501.5200, L500.2500 ####[facility] [address] [place], [address] Eosinophils/100 WBC (Bld) 1.9 % Normal 0-5 [facility] Comment on above: Performed By: #### L 100.0100, L501.5200, L500.2500 ####[facility] [address] [place], [address] Erythrocyte distribution width (RBC) [Ratio] 19.1 % High 11.6-14.6 [facility] Comment on above: Performed By: #### L 100.0100, L501.5200, L500.2500 ####[facility] [address] [place], [address] Hematocrit (Bld) [Volume fraction] 28.9 % Low 37-47 [facility] Comment on above: Performed By: #### L 100.0100, L501.5200, L500.2500 ####[facility] [address] [place], [address] Hemoglobin (Bld) [Mass/Vol] 8.5 g/dL Low 12.0-15.0 [facility] Comment on above: Performed By: #### L 100.0100, L501.5200, L500.2500 ####[facility] [address] [place], [address] IG% 0.600 Normal 0.0-0.9 [facility] Comment on above: Result Comment: IG% - Immature Granulocytes (promyelocytes, myelocytes andmetamyelocytes) > 1% indicates that a LEFT SHIFT is Present. Performed By: #### L 100.0100, L501.5200, L500.2500 ####[facility] [address] [place], [address] Lymphocytes/100 WBC (Bld) 7.6 % Low 19-41 [facility] Comment on above: Performed By: #### L 100.0100, L501.5200, L500.2500 ####[facility] [address] [place], [address] MCH (RBC) [Entitic mass] 21.7 pg Low 27.0-32.0 [facility] Comment on above: Performed By: #### L 100.0100, L501.5200, L500.2500 ####[facility] [address] [place], [address] MCHC (RBC) [Mass/Vol] 29.4 g/dL Low 32-36 [facility] Comment on above: Performed By: #### L 100.0100, L501.5200, L500.2500 ####[facility] [address] [place], [address] MCV (RBC) [Entitic vol] 73.9 fL Low 81-99 [facility] Comment on above: Performed By: #### L 100.0100, L501.5200, L500.2500 ####[facility] [address] [place], [address] Monocytes/100 WBC (Bld) 8.4 % Normal 0-10 [facility] Comment on above: Performed By: #### L 100.0100, L501.5200, L500.2500 ####[facility] [address] [place], [address] Neutrophils/100 WBC (Bld) 80.8 % High 47-70 [facility] Comment on above: Performed By: #### L 100.0100, L501.5200, L500.2500 ####[facility] [address] [place], [address] Nucleated RBC (Bld) [#/Vol] 0 10*3/uL Normal 0-5 [facility] Comment on above: Performed By: #### L 100.0100, L501.5200, L500.2500 ####[facility] [address] [place], [address] Platelet mean volume (Bld) [Entitic vol] 10.9 fL Normal 6.2-12.0 [facility] Comment on above: Performed By: #### L 100.0100, L501.5200, L500.2500 ####[facility] [address] [place], [address] Platelets (Bld) [#/Vol] 282 10*3/uL Normal 150-450 [facility] Comment on above: Performed By: #### L 100.0100, L501.5200, L500.2500 ####[facility] [address] [place], [address] RBC (Bld) [#/Vol] 3.91 10*6/uL Low 4.2-5.4 [facility] Comment on above: Performed By: #### L 100.0100, L501.5200, L500.2500 ####[facility] [address] [place], [address] RDW SD 47.8 fl High 35.1-43.9 [facility] Comment on above: Performed By: #### L 100.0100, L501.5200, L500.2500 ####[facility] [address] [place], [address] WBC (Bld) [#/Vol] 12.1 10*3/uL High 4.4-11.0 [facility] Comment on above: Performed By: #### L 100.0100, L501.5200, L500.2500 ####[facility] [address] [place], [address] Chest 1 View (Portable)on Chest 1 View (Portable) Normal [facility] Magnesiumon 02-15-2025 Magnesium [Mass/Vol] 2.1 mg/dL Normal 1.5-2.2 [facility] Comment on above: Performed By: #### L 100.0100, L501.5200, L500.2500 ####[facility] [address] [place], [address] Phosphoruson 02-15-2025 Phosphate [Mass/Vol] 4.0 mg/dL Normal 2.7-4.5 [facility] Comment on above: Performed By: #### L 501.2300 ####[facility] [address] [place], [address] Basic Metabolic Profile (BMP )on 02-14-2025 BUN/CRE 52.2 RATIO High 10-20 [facility] Comment on above: Performed By: #### L 500.2500 ####[facility] [address] [place], [address] Calcium [Mass/Vol] 8.5 mg/dL Normal 7.6-11.0 [facility] Comment on above: Performed By: #### L 500.2500 ####[facility] [address] [place], [address] Chloride [Moles/Vol] 93 mmol/L Low 98-108 [facility] Comment on above: Performed By: #### L 500.2500 ####[facility] [address] [place], [address] CO2 [Moles/Vol] 28.9 mmol/L Normal 21.0-32.0 [facility] Comment on above: Performed By: #### L 500.2500 ####[facility] [address] [place], [address] Creatinine [Mass/Vol] 2.49 mg/dL High 0.70-1.20 [facility] Comment on above: Performed By: #### L 500.2500 ####[facility] [address] [place], [address] ECRCL 23.53 ml/min Low 50-250 [facility] Comment on above: Performed By: #### L 500.2500 ####[facility] [address] [place], [address] GAP 17 High 5-15 [facility] Comment on above: Performed By: #### L 500.2500 ####[facility] [address] [place], [address] GFR/1.73 sq M.predicted among non-blacks MDRD (S/P/Bld) [Vol rate/Area] 20 mL/min/{1.73_m2} Low >60 [facility] Comment on above: Result Comment: mL/m in/1.73m2 CKD-EPI Creatinine Equation (2020) Performed By: #### L 500.2500 ####[facility] [address] [place], [address] Glucose [Mass/Vol] 255 mg/dL High 70-99 [facility] Comment on above: Performed By: #### L 500.2500 ####[facility] [address] [place], [address] Potassium [Moles/Vol] 3.3 mmol/L Normal 3.3-5.1 [facility] Comment on above: Result Comment: Hemo lysis present, Results??could be affected.?? Performed By: #### L 500.2500 ####[facility] [address] [place], [address] Sodium [Moles/Vol] 140 mmol/L Normal 133-145 [facility] Comment on above: Performed By: #### L 500.2500 ####[facility] [address] [place], [address] Urea nitrogen [Mass/Vol] 130 mg/dL Invalid Interpretation Code 01-13 [facility] Comment on above: Result Comment: Crit ical Result(s) Called at: 0646 by: HERMELINDO BURNETT??Results read back by same. Performed By: #### L 500.2500 ####[facility] [address] [place], [address] Bedside Glucoseon 02-14-2025 FINGERSTICK GLU 207 mg/dL High [facility] Comment on above: Result Comment: VI GEMENT OF PATIENT CARE PER NURSING PROTOCOL Performed By: #### L 501.080 ####[facility] [address] [place], [address] FINGERSTICK GLU 169 mg/dL High -106 [facility] Comment on above: Result Comment: VI GEMENT OF PATIENT CARE PER NURSING PROTOCOL Performed By: #### L 501.080 ####[facility] [address] [place], [address] FINGERSTICK GLU 175 mg/dL High [facility] Comment on above: Result Comment: VI GEMENT OF PATIENT CARE PER NURSING PROTOCOL Performed By: #### L 501.080 ####[facility] [address] [place], [address] FINGERSTICK GLU 166 mg/dL High -106 [facility] Comment on above: Result Comment: VI GEMENT OF PATIENT CARE PER NURSING PROTOCOL Performed By: #### L 501.080 ####[facility] [address] [place], [address] FINGERSTICK GLU 219 mg/dL High 74-106 [facility] Comment on above: Result Comment: VI GEMENT OF PATIENT CARE PER NURSING PROTOCOL Performed By: #### L 501.080 ####[facility] [address] [place], [address] FINGERSTICK GLU 289 mg/dL High 74-106 [facility] Comment on above: Result Comment: VI GEMENT OF PATIENT CARE PER NURSING PROTOCOL Performed By: #### L 501.080 ####[facility] [address] [place], [address] Blood Gases by [facility] 025 DANIEL TEST Positive Normal [facility] Comment on above: Performed By: #### L 9000.0800 ####[facility] [address] [place], [address] Base excess Calc (Bld) [Moles/Vol] 12 mmol/L High -2 to +2 [facility] Comment on above: Performed By: #### L 9000.0800 ####[facility] [address] [place], [address] Blood Gas Type ART Normal [facility] Comment on above: Performed By: #### L 9000.0800 ####[facility] [address] [place], [address] CO2 [Moles/Vol] 37 mmol/L Normal [facility] Comment on above: Performed By: #### L 9000.0800 ####[facility] [address] [place], [address] FI02 30.0 Normal [facility] Comment on above: Performed By: #### L 9000.0800 ####[facility] [address] [place], [address] HCO3 (Bld) [Moles/Vol] 35.2 mmol/L High 22-26 [facility] Comment on above: Performed By: #### L 0.0800 ####[facility] [address] [place], [address] Mode AC Normal [facility] Comment on above: Performed By: #### L 9000.0800 ####[facility] [address] [place], [address] O2 Delivery Dev Adult Vent Normal [facility] Comment on above: Performed By: #### L 9000.0800 ####[facility] [address] [place], [address] pCO2 44.3 mmHg Normal 35-45 [facility] Comment on above: Performed By: #### L 9000.0800 ####[facility] [address] [place], [address] PEEP 5 Normal [facility] Comment on above: Performed By: #### L 9000.0800 ####[facility] [address] [place], [address] pH (Bld) 7.51 [pH] High 7.35-7.45 [facility] Comment on above: Performed By: #### L 9000.0800 ####[facility] [address] [place], [address] PO2 66 mmHG Low 75-100 [facility] Comment on above: Performed By: #### L 9000.0800 ####[facility] [address] [place], [address] RR 14 Normal [facility] Comment on above: Performed By: #### L 9000.0800 ####[facility] [address] [place], [address] SITE L Radial Normal [facility] Comment on above: Performed By: #### L 9000.0800 ####[facility] [address] [place], [address] SO2 94 Low 95-99 [facility] Comment on above: Performed By: #### L 9000.0800 ####[facility] [address] [place], [address] Vt 450.0 mL Normal [facility] Comment on above: Performed By: #### L 9000.0800 ####[facility] [address] [place], [address] CBC W/Diff, Automatedon 05-2 -2024 Absolute Lymph 1.00 X10 3/uL Normal 0.83-4.51 [facility] Comment on above: Performed By: #### L 100.0100 ####[facility] [address] [place], [address] Absolute Neut 8.8 X10 3/uL High 2.0-7.7 [facility] Comment on above: Performed By: #### L 100.0100 ####[facility] [address] [place], [address] Basophils/100 WBC (Bld) 0.5 % Normal 0-1 [facility] Comment on above: Performed By: #### L 100.0100 ####[facility] [address] [place], [address] Eosinophils/100 WBC (Bld) 1.9 % Normal 0-5 [facility] Comment on above: Performed By: #### L 100.0100 ####[facility] [address] [place], [address] Erythrocyte distribution width (RBC) [Ratio] 18.5 % High 11.6-14.6 [facility] Comment on above: Performed By: #### L 100.0100 ####[facility] [address] [place], [address] Hematocrit (Bld) [Volume fraction] 27.7 % Low 37-47 [facility] Comment on above: Performed By: #### L 100.0100 ####[facility] [address] [place], [address] Hemoglobin (Bld) [Mass/Vol] 8.1 g/dL Low 12.0-15.0 [facility] Comment on above: Performed By: #### L 100.0100 ####[facility] [address] [place], [address] IG% 0.500 Normal 0.0-0.9 [facility] Comment on above: Result Comment: IG% - Immature Granulocytes (promyelocytes, myelocytes andmetamyelocytes) > 1% indicates that a LEFT SHIFT is Present. Performed By: #### L 100.0100 ####[facility] [address] [place], [address] Lymphocytes/100 WBC (Bld) 8.8 % Low 19-41 [facility] Comment on above: Performed By: #### L 100.0100 ####[facility] [address] [place], [address] MCH (RBC) [Entitic mass] 21.3 pg Low 27.0-32.0 [facility] Comment on above: Performed By: #### L 100.0100 ####[facility] [address] [place], [address] MCHC (RBC) [Mass/Vol] 29.2 g/dL Low 32-36 [facility] Comment on above: Performed By: #### L 100.0100 ####[facility] [address] [place], [address] MCV (RBC) [Entitic vol] 72.9 fL Low 81-99 [facility] Comment on above: Performed By: #### L 100.0100 ####[facility] [address] [place], [address] Monocytes/100 WBC (Bld) 10.4 % High 0-10 [facility] Comment on above: Performed By: #### L 100.0100 ####[facility] [address] [place], [address] Neutrophils/100 WBC (Bld) 77.9 % High 47-70 [facility] Comment on above: Performed By: #### L 100.0100 ####[facility] [address] [place], [address] Nucleated RBC (Bld) [#/Vol] 0 10*3/uL Normal 0-5 [facility] Comment on above: Performed By: #### L 100.0100 ####[facility] [address] [place], [address] Platelet mean volume (Bld) [Entitic vol] 10.4 fL Normal 6.2-12.0 [facility] Comment on above: Performed By: #### L 100.0100 ####[facility] [address] [place], [address] Platelets (Bld) [#/Vol] 249 10*3/uL Normal 150-450 [facility] Comment on above: Performed By: #### L 100.0100 ####[facility] [address] [place], [address] RBC (Bld) [#/Vol] 3.80 10*6/uL Low 4.2-5.4 [facility] Comment on above: Performed By: #### L 100.0100 ####[facility] [address] [place], [address] RDW SD 46.8 fl High 35.1-43.9 [facility] Comment on above: Performed By: #### L 100.0100 ####[facility] [address] [place], [address] WBC (Bld) [#/Vol] 11.3 10*3/uL High 4.4-11.0 [facility] Comment on above: Performed By: #### L 100.0100 ####[facility] [address] [place], [address] Chest 1 View (Portable)on Chest 1 View (Portable) Normal [facility] Chest 1 View (Portable) Normal [facility] L3890.6102on 02-14-2025 HEP B Surf Ag Non-Reactive Normal Nonreactive [facility] Comment on above: Order Comment: Reaso n for Exam: may need outpatient dialysis Result Comment: Reac tive: Presumptive evidence of HBV. Repeatedly reactivesamples must be confirmed using a neutralization test([employer] HBsAg Confirmatory Test)Non-Reactive: HBsAg not detected; does not exclude thepossibility of exposure to HBV Performed By: #### L 3890.6102 ####[facility] [address] [place], [address] MR/POSTOP.ANEon 02-14-2025 MR/POSTOP.ANE Normal [facility] Operative Reporton Operative Report Normal [facility] Bedside Glucoseon 02-13-2025 FINGERSTICK GLU 341 mg/dL High 74-106 [facility] Comment on above: Result Comment: VI GEMENT OF PATIENT CARE PER NURSING PROTOCOL Performed By: #### L 501.080 ####[facility] [address] [place], [address] FINGERSTICK GLU 313 mg/dL High 74-106 [facility] Comment on above: Result Comment: VI GEMENT OF PATIENT CARE PER NURSING PROTOCOL Performed By: #### L 501.080 ####[facility] [address] [place], [address] FINGERSTICK GLU 355 mg/dL High 74-106 [facility] Comment on above: Result Comment: VI GEMENT OF PATIENT CARE PER NURSING PROTOCOL Performed By: #### L 501.080 ####[facility] [address] [place], [address] FINGERSTICK GLU 410 mg/dL High 74-106 [facility] Comment on above: Result Comment: VI GEMENT OF PATIENT CARE PER NURSING PROTOCOL Performed By: #### L 501.080 ####[facility] [address] [place], [address] FINGERSTICK GLU 413 mg/dL High 74-106 [facility] Comment on above: Result Comment: VI GEMENT OF PATIENT CARE PER NURSING PROTOCOL Performed By: #### L 501.080 ####[facility] [address] [place], [address] Blood Gases by [facility] 025 Base excess Calc (Bld) [Moles/Vol] 12 mmol/L High -2 to +2 [facility] Comment on above: Performed By: #### L 9000.0800 ####[facility] [address] [place], [address] Blood Gas Type ART Normal [facility] Comment on above: Performed By: #### L 9000.0800 ####[facility] [address] [place], [address] CO2 [Moles/Vol] 38 mmol/L Normal [facility] Comment on above: Performed By: #### L 9000.0800 ####[facility] [address] [place], [address] FI02 30.0 Normal [facility] Comment on above: Performed By: #### L 9000.0800 ####[facility] [address] [place], [address] HCO3 (Bld) [Moles/Vol] 36.0 mmol/L High 22-26 [facility] Comment on above: Performed By: #### L 9000.0800 ####[facility] [address] [place], [address] Mode AC Normal [facility] Comment on above: Performed By: #### L 9000.0800 ####[facility] [address] [place], [address] O2 Delivery Dev Adult Vent Normal [facility] Comment on above: Performed By: #### L 9000.0800 ####[facility] [address] [place], [address] pCO2 49.2 mmHg High 35-45 [facility] Comment on above: Performed By: #### L 9000.0800 ####[facility] [address] [place], [address] PEEP 5 Normal [facility] Comment on above: Performed By: #### L 9000.0800 ####[facility] [address] [place], [address] pH (Bld) 7.47 [pH] High 7.35-7.45 [facility] Comment on above: Performed By: #### L 9000.0800 ####[facility] [address] [place], [address] PO2 52 mmHG Low 75-100 [facility] Comment on above: Performed By: #### L 9000.0800 ####[facility] [address] [place], [address] SITE R Radial Normal [facility] Comment on above: Performed By: #### L 9000.0800 ####[facility] [address] [place], [address] SO2 88 Low 95-99 [facility] Comment on above: Performed By: #### L 9000.0800 ####[facility] [address] [place], [address] DANIEL TEST Positive Normal [facility] Comment on above: Performed By: #### L 9000.0800 ####[facility] [address] [place], [address] Blood Gas Type ART Normal [facility] Comment on above: Performed By: #### L 9000.0800 ####[facility] [address] [place], [address] CO2 [Moles/Vol] 36 mmol/L Normal [facility] Comment on above: Performed By: #### L 0.0800 ####[facility] [address] [place], [address] HCO3 (Bld) [Moles/Vol] 34.6 mmol/L High 22-26 [facility] Comment on above: Performed By: #### L 9000.0800 ####[facility] [address] [place], [address] Mode AC Normal [facility] Comment on above: Performed By: #### L 0.0800 ####[facility] [address] [place], [address] O2 Delivery Dev Adult Vent Normal [facility] Comment on above: Performed By: #### L 0.0800 ####[facility] [address] [place], [address] pH (Bld) 7.50 [pH] High 7.35-7.45 [facility] Comment on above: Performed By: #### L 0.0800 ####[facility] [address] [place], [address] SITE R Radial Normal [facility] Comment on above: Performed By: #### L 9000.0800 ####[facility] [address] [place], [address] Consultation - Surgicalon Consultation - Surgical Normal [facility] Hemoglobin A1con 02-13-2025 HbA1c (Bld) [Mass fraction] 7.1 % High <=5.6 [facility] Comment on above: Result Comment: Norm al < 5.7 % Prediabetic 5.7 - 6.4 % Diabetic >or= 6.5 % Please note range changes. Performed By: #### L 501.3694 ####[facility] [address] [place], [place], [address] Absolute lymphocyte countOrd ered By: Herbert Cardona on 02-12-2025 Lymphocytes Auto (Unsp spec) [#/Vol] 0.88 10*3/uL 0.83-4.51 [facility] Absolute neutrophil countOrd ered By: Herbert Cardona on 02-12-2025 Neutrophils (Bld) [#/Vol] 8.5 10*3/uL High 2.0-7.7 [facility] Anion gap in Serum or Plasma Ordered By: Zachery Gomez on 02-12-2025 Anion gap [Moles/Vol] 13 mmol/L 5-15 [facility] Assessment of wrist artery p atency prior to arterial punctureOrdered By: Herbert Cardona on 02-12-2025 Arterial patency Wrist artery --pre arterial puncture Positive [facility] Automated lymphocyte count a s percentage of total leukocytesOrdered By: Herbert Cardona on 02-12-2025 Lymphocytes/100 WBC Auto (Unsp spec) 8.1 % Low 19-41 [facility] BUN/creatinine ratioOrdered By: Zachery Gomez on 02-12-2025 Urea nitrogen/Creatinine [Mass ratio] 46.6 mg/mg High 10-20 [facility] Basophil percentageOrdered B y: Herbert Cardona on 02-12-2025 Basophils/100 WBC (Bld) 0.6 % 0-1 [facility] Blood base excess determinat ionOrdered By: Herbert Cardona on 02-12-2025 Base excess Calc (BldV) [Moles/Vol] 10 mmol/L High -2-2 [facility] Blood bicarbonate measuremen tOrdered By: Herbert Cardona on 02-12-2025 HCO3 (Bld) [Moles/Vol] 32.3 mmol/L High 22-26 [facility] Carbon dioxide, total [Moles /volume] in Central venous bloodOrdered By: Zachery Gomez on 02-12-2025 CO2 [Moles/Vol] 30.1 mmol/L 21.0-32.0 [facility] Chloride assayOrdered By: Mack Gomez on 02-12-2025 Chloride [Moles/Vol] 94 mmol/L Low 98-108 [facility] Eosinophil percentageOrdered By: Herbert Cardona on 02-12-2025 Eosinophils/100 WBC (Bld) 1.7 % 0-5 [facility] Erythrocyte distribution wid th ratioOrdered By: Herbert Cardona on 02-12-2025 Erythrocyte distribution width (RBC) [Ratio] 17.4 % High 11.6-14.6 [facility] Erythrocyte distribution wid th standard deviationOrdered By: Herbert Cardona on 02-12-2025 Erythrocyte distribution width (RBC) [Ratio] 45.2 fl High 35.1-43.9 [facility] Glomerular filtration rate ( GFR) estimation/1.73 sq m using serum, plasma, or whole bOrdered By: Zachery Gomez on 02-12-2025 GFR/1.73 sq M.predicted among non-blacks MDRD (S/P/Bld) [Vol rate/Area] 21 mL/min/{1.73_m2} Low >60 [facility] Comment on above: mL/min/1.73m2 CKD-EP I Creatinine Equation (2020) Glucose measurement at bedsi deOrdered By: Herbert Cardona on 02-12-2025 Glucose [Mass/Vol] 386 mg/dL High 74-106 [facility] Comment on above: MANAGEMENT OF PATIEN T CARE PER NURSING PROTOCOL Hematocrit Auto (Bld) [Volum e fraction]Ordered By: Herbert Cardona on 02-12-2025 Hematocrit (Bld) [Volume fraction] 27.3 % Low 37-47 [facility] Hemoglobin measurementOrdere d By: Herbert Cardona on 02-12-2025 Hemoglobin (Bld) [Mass/Vol] 8.1 g/dL Low 12.0-15.0 [facility] Immature granulocytes/100 WB C Auto (Bld)Ordered By: Herbert Cardona on 02-12-2025 Immature granulocytes/100 WBC (Bld) 1.200 % High 0.0-0.9 [facility] Comment on above: IG% - Immature Granu locytes (promyelocytes, myelocytes and metamyelocytes) > 1% indicates that a LEFT SHIFT is Present. MCV (mean corpuscular volume ) determinationOrdered By: Herbert Cardona on 02-12-2025 MCV (RBC) [Entitic vol] 72.6 fL Low 81-99 [facility] Mean corpuscular hemoglobin (MCH) determinationOrdered By: Herbert Cardona on 02-12-2025 MCH (RBC) [Entitic mass] 21.5 pg Low 27.0-32.0 [facility] Mean corpuscular hemoglobin concentration (MCHC) determinationOrdered By: Herbert Cardona on 02-12-2025 MCHC (RBC) [Mass/Vol] 29.7 g/dL Low 32-36 [facility] Mean platelet volume determi nationOrdered By: Herbert Cardona on 02-12-2025 Platelet mean volume (Bld) [Entitic vol] 9.8 fL 6.2-12.0 [facility] Measurement, pHOrdered By: Laurel Cardona on 02-12-2025 pH (Unsp spec) 7.56 [pH] High 7.35-7.45 [facility] Monocyte percentageOrdered B y: Herbert Cardona on 02-12-2025 Monocytes/100 WBC (Bld) 10.5 % High 0-10 [facility] Neutrophil percentageOrdered By: Herbert Cardona on 02-12-2025 Neutrophils/100 WBC (Bld) 77.9 % High 47-70 [facility] No Panel InformationOrdered By: Herbert Cardona on 02-12-2025 Bedside Blood Gas PEEP 5 [facility] Blood Gas Respiration Rate 14 [facility] Blood Gas Sample Site R Radial [facility] Blood Gas Specimen Type ART [facility] Blood Gas Tidal Volume 450.0 mL [facility] Blood Gas Vent Mode AC [facility] Oxygen Delivery Device Adult Vent [facility] Nucleated red blood cell per centageOrdered By: Herbert Cardona on 02-12-2025 Nucleated RBC/100 WBC (Bld) [Ratio] 0 % 0-5 [facility] Platelet countOrdered By: Paris Cardona on 02-12-2025 Platelets (Bld) [#/Vol] 246 10*3/uL 150-450 [facility] Potassium measurement (mass/ volume)Ordered By: Zachery Gomez on 02-12-2025 Potassium (Unsp spec) [Mass/Vol] 3.4 mmol/L 3.3-5.1 [facility] RBC Auto (Bld) [#/Vol]Ordere d By: Herbert Cardona on 02-12-2025 RBC (Bld) [#/Vol] 3.76 10*6/uL Low 4.2-5.4 [facility] Serum creatinine measurement (mass/volume)Ordered By: Zachery Gomez on 02-12-2025 Creatinine [Mass/Vol] 2.36 mg/dL High 0.70-1.20 [facility] Serum glucose measurement (m ass/volume)Ordered By: Zachery Gomez on 02-12-2025 Glucose [Mass/Vol] 457 mg/dL High 70-99 [facility] Comment on above: Critical Result(s) C alled at 0610: by: KD COLE. Results read back by raymond. Serum or plasma calcium kayleigh urement (mass/volume)Ordered By: Zachery Gomez on 02-12-2025 Calcium [Mass/Vol] 8.3 mg/dL 7.6-11.0 [facility] Serum or plasma urea nitroge n measurement (mass/volume)Ordered By: Zachery Gomez on 02-12-2025 Urea nitrogen [Mass/Vol] 110 mg/dL High -19 [facility] Comment on above: Critical Result(s) C alled at 0610: by: KD COLE. Results read back by raymond. Sodium levelOrdered By: Angelita Gomez on 02-12-2025 Sodium [Moles/Vol] 137 mmol/L 133-145 [facility] Total carbon dioxide measure mentOrdered By: Herbert Cardona on 02-12-2025 CO2 [Moles/Vol] 33 mmol/L [facility] White blood cell (WBC) count Ordered By: Herbret Cardona on 02-12-2025 WBC (Bld) [#/Vol] 10.9 10*3/uL 4.4-11.0 [facility] Gram stainOrdered By: Jose Pool on 02-08-2025 Microscopic observation Gram stain Nom (Unsp spec) [facility] Immature platelet percentage Ordered By: Zachery Gomez on 02-08-2025 Platelets reticulated/100 platelets Auto (Bld) 1.2 % 1.0-7.9 [facility] Comment on above: Low PLT + [...] (Unsp spec) [Mass/Mass] 16 ug/dL Low 50-170 [facility] Lactate dehydrogenase (LDH) measurementOrdered By: Zachery Gomez on 02-08-2025 LDH [Catalytic activity/Vol] 203 U/L 84-246 [facility] Microbial respiratory cultur eOrdered By: Jose Pool on 02-08-2025 Microorganism identified Cx Nom (Unsp spec) or Staphylococcus aureus isolated. [facility] No Panel InformationOrdered By: Zachery Gomez on 02-08-2025 Bld Gas Crit Called To/Read Back By Yes [facility] Blood Gas Notified Time 10:38:53 [facility] Blood Gas Notified Agustin POOL [facility] Unsaturated Iron Binding Capacity 283 ug/dL 228-428 [facility] Reticulocyte hemoglobin equi valent (RET-He) measurementOrdered By: Zachery Gomez on 02-08-2025 Hemoglobin (Reticulocytes) [Entitic mass] 16.0 pg Low 30-35 [facility] Reticulocytes Auto (Bld) [#/ Vol]Ordered By: Zachery Gomez on 02-08-2025 Reticulocytes/100 RBC (Bld) 1.81 % High 0.5-1.5 [facility] Serum or plasma ferritin thomas surement (mass/volume)Ordered By: Zachery Gomez on 02-08-2025 Ferritin [Mass/Vol] 63 ng/mL 22-378 [facility] Serum or plasma iron saturat ion measurement (mass fraction)Ordered By: Zachery Gomez on 02-08-2025 Iron saturation [Mass fraction] 5.0 % Low 13-59 [facility] Stool gastrointestinal hemog lobin detection by immunologic methodOrdered By: Zachery Gomez on 02-08-2025 Lower GI hemoglobin IA Ql (Stl) [facility] Calculated very low density lipoprotein (VLDL) cholesterol measurementOrdered By: Zachery Gomez on 02-06-2025 Calculated very low density lipoprotein (VLDL) cholesterol measurement 13 mg/dL 5-40 [facility] LDL calc ser/plasOrdered By: Zachery Gomez on 02-06-2025 Cholesterol in LDL [Mass/Vol] 69 mg/dL [facility] Comment on above: Jqlxpnigmf=210-140 m g/dL & Higher Fpuz=708 mg/dL or greater Screening total cholesterol/ high density lipoprotein (HDL) cholesterol ratioOrdered By: Zachery Gomez on 02-06-2025 Cholesterol.total/Antonia sterol in HDL [Mass ratio] 3.20 {ratio} [facility] Serum or plasma cholesterol in HDL measurement (mass/volume)Ordered By: Zachery Gomez on 02-06-2025 Cholesterol in HDL [Mass/Vol] 37 mg/dL Low >40 [facility] Comment on above: National Cholesterol Education Program (NCEP) guidelines:<40 mg/dL: Low HDL-cholesterol (major risk factor for CHD)>= 60 mg/dL: High HDL-cholesterol (negative risk factor for CHD)HDL-cholesterol is affected by a number of factors, e.g. smoking, exercise, hormones, sex and age. Serum or plasma cholesterol measurement (mass/volume)Ordered By: Zachery Gomez on 02-06-2025 Cholesterol [Mass/Vol] 119 mg/dL <201 [facility] Comment on above: Cholesterol level, D esirable <200 mg/dLBorderline high cholesterol 200-239 mg/dLHigh cholesterol >=240 mg/dLRecommendations of the NCEP Adult Treatment Panel for the following risk-cutoff thresholds for the [place] population. TSH DL <= 0.005 mIU/L QnOrde red By: Zachery Gomez on 02-06-2025 TSH Qn 3.320 uIU/mL 0.300-4.200 [facility] Triglycerides measurementOrd ered By: Zachery Gomez on 02-06-2025 Triglyceride [Mass/Vol] 65 mg/dL <199 [facility] Comment on above: The drugs N-Acetylcy steine and Metamizole may falsely depress this assay. Normal range: <150 mg/dLBorderline High: 150-199 mg/dLHigh: 200-499 mg/dLVery High: >500 mg/dL Absolute lymphocyte countOrd ered By: ED PROVIDER on 02-05-2025 Lymphocytes Auto (Unsp spec) [#/Vol] 0.51 10*3/uL Low 0.83-4.51 [facility] Absolute neutrophil countOrd ered By: ED PROVIDER on 02-05-2025 Neutrophils (Bld) [#/Vol] 18.4 10*3/uL High 2.0-7.7 [facility] Activated partial thrombopla stin time (aPTT) in platelet poor plasma by coagulation aOrdered By: Eduardo Corona on 02-05-2025 aPTT Coag (PPP) [Time] 31.7 s 24.1-36.2 [facility] Anion gap in Serum or Plasma Ordered By: Eduardo Corona on 02-05-2025 Anion gap [Moles/Vol] 19 mmol/L High 5-15 [facility] Assessment of wrist artery p atency prior to arterial punctureOrdered By: Zachery Gomez on 02-05-2025 Arterial patency Wrist artery --pre arterial puncture Positive [facility] Automated lymphocyte count a s percentage of total leukocytesOrdered By: ED PROVIDER on 02-05-2025 Lymphocytes/100 WBC Auto (Unsp spec) 2.5 % Low 19-41 [facility] BUN/creatinine ratioOrdered By: Eduardo Corona on 02-05-2025 Urea nitrogen/Creatinine [Mass ratio] 24.9 mg/mg High 10-20 [facility] Basophil percentageOrdered B y: ED PROVIDER on 02-05-2025 Basophils/100 WBC (Bld) 0.3 % 0-1 [facility] Bilirubin Test strip Ql (U)O rdered By: Eduardo Corona on 02-05-2025 Bilirubin Ql (U) Negative Negative [facility] Blood base excess determinat ionOrdered By: Zachery Gomez on 02-05-2025 Base excess Calc (BldV) [Moles/Vol] -8 mmol/L Low -2-2 [facility] Blood bicarbonate measuremen tOrdered By: Zachery Gomez on 02-05-2025 HCO3 (Bld) [Moles/Vol] 20.3 mmol/L Low 22-26 [facility] Blood cultureOrdered By: Isabel Corona on 02-05-2025 Bacteria identified Cx Nom (Bld) No growth in 5 days. [facility] Bacteria identified Cx Nom (Bld) No growth in 5 days. [facility] Carbon dioxide, total [Moles /volume] in Central venous bloodOrdered By: Eduardo Corona on 02-05-2025 CO2 [Moles/Vol] 15.7 mmol/L Low 21.0-32.0 [facility] Chloride assayOrdered By: Josh Corona on 02-05-2025 Chloride [Moles/Vol] 100 mmol/L 98-108 [facility] Eosinophil percentageOrdered By: ED PROVIDER on 02-05-2025 Eosinophils/100 WBC (Bld) 0.0 % 0-5 [facility] Erythrocyte distribution wid th ratioOrdered By: ED PROVIDER on 02-05-2025 Erythrocyte distribution width (RBC) [Ratio] 17.0 % High 11.6-14.6 [facility] Erythrocyte distribution wid th standard deviationOrdered By: ED PROVIDER on 02-05-2025 Erythrocyte distribution width (RBC) [Ratio] 45.6 fl High 35.1-43.9 [facility] Glomerular filtration rate ( GFR) estimation/1.73 sq m using serum, plasma, or whole bOrdered By: Eduardo Corona on 02-05-2025 GFR/1.73 sq M.predicted among non-blacks MDRD (S/P/Bld) [Vol rate/Area] 21 mL/min/{1.73_m2} Low >60 [facility] Comment on above: mL/min/1.73m2 CKD-EP I Creatinine Equation (2020) Hematocrit Auto (Bld) [Volum e fraction]Ordered By: ED PROVIDER on 02-05-2025 Hematocrit (Bld) [Volume fraction] 27.9 % Low 37-47 [facility] Hemoglobin measurementOrdere d By: ED PROVIDER on 02-05-2025 Hemoglobin (Bld) [Mass/Vol] 8.0 g/dL Low 12.0-15.0 [facility] Immature granulocytes/100 WB C Auto (Bld)Ordered By: ED PROVIDER on 02-05-2025 Immature granulocytes/100 WBC (Bld) 0.600 % 0.0-0.9 [facility] Comment on above: IG% - Immature Granu locytes (promyelocytes, myelocytes and metamyelocytes) > 1% indicates that a LEFT SHIFT is Present. International normalized rat io (INR) calculationOrdered By: Eduardo Corona on 02-05-2025 INR Coag (Bld) [Relative time] 1.4 {INR} [facility] Ketones Test strip Ql (U)Ord ered By: Eduardo Corona on 02-05-2025 Ketones Ql (U) Negative Negative [facility] Lactic acid measurementOrder ed By: Eduardo Corona on 02-05-2025 Lactate [Moles/Vol] 1.8 mmol/L 0.0-2.0 [facility] Lactate [Moles/Vol] 2.5 mmol/L High 0.0-2.0 [facility] Comment on above: Critical Result(s) C alled at: 02/05/2025-12:10 by: Yamil Lepe to Missy Luna Results read back by same. MCV (mean corpuscular volume ) determinationOrdered By: ED PROVIDER on 02-05-2025 MCV (RBC) [Entitic vol] 75.2 fL Low 81-99 [facility] Magnesium measurement (mass/ volume)Ordered By: Zachery Gomez on 02-05-2025 Magnesium (Unsp spec) [Mass/Vol] 2.6 mg/dL High 1.5-2.2 [facility] Mean corpuscular hemoglobin (MCH) determinationOrdered By: ED PROVIDER on 02-05-2025 MCH (RBC) [Entitic mass] 21.6 pg Low 27.0-32.0 [facility] Mean corpuscular hemoglobin concentration (MCHC) determinationOrdered By: ED PROVIDER on 02-05-2025 MCHC (RBC) [Mass/Vol] 28.7 g/dL Low 32-36 [facility] Mean platelet volume determi nationOrdered By: ED PROVIDER on 02-05-2025 Platelet mean volume (Bld) [Entitic vol] 10.6 fL 6.2-12.0 [facility] Measurement, pHOrdered By: Martínez Gomez on 02-05-2025 pH (Unsp spec) 7.21 [pH] Low 7.35-7.45 [facility] Microscopic analysis of urin e for red blood cells (RBC)Ordered By: Eduardo Corona on 02-05-2025 Microscopic analysis of urine for red blood cells (RBC) 0 SEEN /hpf 0-5 [facility] Monocyte percentageOrdered B y: ED PROVIDER on 02-05-2025 Monocytes/100 WBC (Bld) 6.9 % 0-10 [facility] Mucus LM Ql (Urine sed)Order ed By: Eduardo Corona on 02-05-2025 Mucus Ql (Urine sed) 0 SEEN /hpf [facility] Nasal methicillin resistant Staphylococcus aureus (MRSA) DNA detection by PCROrdered By: Zachery Gomez on 02-05-2025 MRSA DNA PATEL+probe Ql (Nose) [facility] Natriuretic peptide.B prohor luke N-Terminal [Mass/volume] in Serum or PlasmaOrdered By: Eduardo Corona on 02-05-2025 Natriuretic peptide.B prohormone N-Terminal [Mass/Vol] 49047 pg/mL High <1800 [facility] Comment on above: Heart Failure Unlike ly: < 300 pg/mLHeart Failure Likely< 50 Years: > 450 pg/mL50-75 Years: > 900 pg/mL>75 Years: > 1800 pg/mL Neutrophil percentageOrdered By: ED PROVIDER on 02-05-2025 Neutrophils/100 WBC (Bld) 89.7 % High 47-70 [facility] Nitrite Test strip Ql (U)Ord ered By: Eduardo Corona on 02-05-2025 Nitrite Ql (U) Negative Negative [facility] No Panel InformationOrdered By: Zachery Gomez on 02-05-2025 Blood Gas Sample Site R Radial [facility] Blood Gas Specimen Type ART [facility] Blood Gas Vent Mode Not entered [facility] Oxygen Delivery Device BiPAP [facility] Nucleated red blood cell per centageOrdered By: ED PROVIDER on 02-05-2025 Nucleated RBC/100 WBC (Bld) [Ratio] 0 % 0-5 [facility] Platelet countOrdered By: ED PROVIDER on 02-05-2025 Platelets (Bld) [#/Vol] 226 10*3/uL 150-450 [facility] Potassium measurement (mass/ volume)Ordered By: Eduardo Corona on 02-05-2025 Potassium (Unsp spec) [Mass/Vol] 5.5 mmol/L High 3.3-5.1 [facility] Comment on above: Hemolysis present, R esults could be affected. Protein Test strip Ql (U)Ord ered By: Eduardo Corona on 02-05-2025 Protein Ql (U) 30 mg/dl High Negative [facility] Prothrombin timeOrdered By: Eduardo Corona on 02-05-2025 PT Coag (PPP) [Time] 17.1 s High 11.7-14.9 [facility] RBC Auto (Bld) [#/Vol]Ordere d By: ED PROVIDER on 02-05-2025 RBC (Bld) [#/Vol] 3.71 10*6/uL Low 4.2-5.4 [facility] Serum creatinine measurement (mass/volume)Ordered By: Eduardo Corona on 02-05-2025 Creatinine [Mass/Vol] 2.32 mg/dL High 0.70-1.20 [facility] Serum glucose measurement (m ass/volume)Ordered By: Eduardo Corona on 02-05-2025 Glucose [Mass/Vol] 259 mg/dL High 70-99 [facility] Serum or plasma calcium kayleigh urement (mass/volume)Ordered By: Eduardo Corona on 02-05-2025 Calcium [Mass/Vol] 9.1 mg/dL 7.6-11.0 [facility] Serum or plasma urea nitroge n measurement (mass/volume)Ordered By: Eduardo Corona on 02-05-2025 Urea nitrogen [Mass/Vol] 58 mg/dL High 4-19 [facility] Sodium levelOrdered By: Eduardo Corona on 02-05-2025 Sodium [Moles/Vol] 135 mmol/L 133-145 [facility] Squamous epithelial cells de tection in urine sediment by light microscopyOrdered By: Eduardo Corona on 02-05-2025 Epithelial cells.squamous LM Ql (Urine sed) 0 SEEN /hpf 5-10 [facility] Total carbon dioxide measure mentOrdered By: Zachery Gomez on 02-05-2025 CO2 [Moles/Vol] 22 mmol/L [facility] Troponin T.cardiac [Mass/vol ume] in Serum or Plasma by High sensitivity methodOrdered By: Zachery Gomez on 02-05-2025 Troponin T.cardiac High sensitivity method [Mass/Vol] 270 ng/L High <14 [facility] Comment on above: Critical Result(s) C alled at: 1749 by: JOSEPH MCKEON TO OPAL MI Results read back by same. Troponin T.cardiac [Mass/vol ume] in Serum or Plasma by High sensitivity methodOrdered By: Eduardo Corona on 02-05-2025 Troponin T.cardiac High sensitivity method [Mass/Vol] 241 ng/L High <14 [facility] Comment on above: Critical Result(s) C alled at 1358: by: KD TELLEZ. Results read back by same. Troponin T.cardiac High sensitivity method [Mass/Vol] 218 ng/L High <14 [facility] Comment on above: Critical Result(s) C alled at 1154: by: KD KHAN TO SELENA. Results read back by same. Urine clarityOrdered By: Isabel Corona on 02-05-2025 Clarity (U) Clear Clear [facility] Urine color determinationOrd ered By: Eduardo Corona on 02-05-2025 Color (U) Yellow Yellow [facility] Urine cultureOrdered By: Isabel Corona on 02-05-2025 Bacteria identified Cx Nom (U) Presumptive E. coli Abnormal [facility] Urine glucose detectionOrder ed By: Eduardo Corona on 02-05-2025 Glucose Ql (U) 100 mg/dl High Normal [facility] Urine leukocyte esterase det ection by dipstickOrdered By: Eduardo Corona on 02-05-2025 Leukocyte esterase Test strip Ql (U) 500 /ul High Negative [facility] Urine pHOrdered By: Eduardo galeana on 02-05-2025 pH (U) 5.0 [pH] 5.0 - 8.0 [facility] Urine sediment bacteria coun t by microscopy (number/high power field)Ordered By: Eduardo Corona on 02-05-2025 Bacteria LM.HPF (Urine sed) [#/Area] 0 /[HPF] None Seen [facility] Urine specific gravity measu rementOrdered By: Eduardo Corona on 02-05-2025 Specific gravity (U) [Rel density] 1.025 1.002-1.030 [facility] Urine urobilinogen measureme ntOrdered By: Eduardo Corona on 02-05-2025 Urobilinogen Ql (U) Normal mg/dl Normal [facility] White blood cell (WBC) count Ordered By: ED PROVIDER on 02-05-2025 WBC (Bld) [#/Vol] 20.5 10*3/uL High 4.4-11.0 [facility] White blood cell countOrdere d By: Eduardo Corona on 02-05-2025 White blood cell count 10-25 SEEN /hpf 0-5 [facility] Anion gap in Serum or Plasma Ordered By: Janusz Reaves on 01-29-2025 Anion gap [Moles/Vol] 12 mmol/L 5-15 [facility] BUN/creatinine ratioOrdered By: Janusz Reaves on 01-29-2025 Urea nitrogen/Creatinine [Mass ratio] 26.2 mg/mg High 10-20 [facility] Carbon dioxide, total [Moles /volume] in Central venous bloodOrdered By: Janusz Reaves on 01-29-2025 CO2 [Moles/Vol] 22.0 mmol/L 21.0-32.0 [facility] Chloride assayOrdered By: Eve Reaves on 01-29-2025 Chloride [Moles/Vol] 105 mmol/L 98-108 [facility] Glomerular filtration rate ( GFR) estimation/1.73 sq m using serum, plasma, or whole bOrdered By: Janusz Reaves on 01-29-2025 GFR/1.73 sq M.predicted among non-blacks MDRD (S/P/Bld) [Vol rate/Area] 25 mL/min/{1.73_m2} Low >60 [facility] Comment on above: mL/min/1.73m2 CKD-EP I Creatinine Equation (2020) Natriuretic peptide.B prohor luke N-Terminal [Mass/volume] in Serum or PlasmaOrdered By: Janusz Reaves on 01-29-2025 Natriuretic peptide.B prohormone N-Terminal [Mass/Vol] 3923 pg/mL High <1800 [facility] Comment on above: Heart Failure Unlike ly: < 300 pg/mLHeart Failure Likely< 50 Years: > 450 pg/mL50-75 Years: > 900 pg/mL>75 Years: > 1800 pg/mL Potassium measurement (mass/ volume)Ordered By: Janusz Reaves on 01-29-2025 Potassium (Unsp spec) [Mass/Vol] 4.4 mmol/L 3.3-5.1 [facility] Serum creatinine measurement (mass/volume)Ordered By: Janusz Reaves on 01-29-2025 Creatinine [Mass/Vol] 2.00 mg/dL High 0.70-1.20 [facility] Serum glucose measurement (m ass/volume)Ordered By: Janusz Reaves on 01-29-2025 Glucose [Mass/Vol] 139 mg/dL High 70-99 [facility] Serum or plasma calcium kayleigh urement (mass/volume)Ordered By: Janusz Reaves on 01-29-2025 Calcium [Mass/Vol] 9.3 mg/dL 7.6-11.0 [facility] Serum or plasma urea nitroge n measurement (mass/volume)Ordered By: Janusz Reaves on 01-29-2025 Urea nitrogen [Mass/Vol] 52 mg/dL High 4-19 [facility] Sodium levelOrdered By: Jenelle Reaves on 01-29-2025 Sodium [Moles/Vol] 139 mmol/L 133-145 [facility] CBC W Auto Differential pane l (Bld)on 12-18-2024 Basophils (Bld) [#/Vol] 0.07 10*3/uL Normal <0.11 [facility] Comment on above: Order Comment: Speci men Type: BLOOD SPECIMENOrdering Facility: [facility] Address: [address] [place] [address] Performed By: #### 5 7021-8 ####[facility]CL[facility] [id number] [place] [address] [place] Basophils/100 WBC (Bld) 0.9 % Normal [facility] Comment on above: Order Comment: Speci men Type: BLOOD SPECIMENOrdering Facility: [facility] Address: [address] [place] [address] Performed By: #### 5 7021-8 ####[facility] [id number] [place] [address] [place] Differential cell count method Nom (Bld) Auto Normal [facility] Comment on above: Order Comment: Speci men Type: BLOOD SPECIMENOrdering Facility: [facility] Address: [address] [place] [address] Performed By: #### 5 7021-8 ####[facility] [id number] [place] [address] [place] Eosinophils (Bld) [#/Vol] 0.17 10*3/uL Normal <0.46 [facility] Comment on above: Order Comment: Speci men Type: BLOOD SPECIMENOrdering Facility: [facility] Address: [address] [place] [address] Performed By: #### 5 7021-8 ####[facility] [id number] [place] [address] [place] Eosinophils/100 WBC (Bld) 2.2 % Normal [facility] Comment on above: Order Comment: Speci men Type: BLOOD SPECIMENOrdering Facility: [facility] Address: [address] [place] [address] Performed By: #### 5 7021-8 ####[facility] [id number] [place] [address] [place] Erythrocyte distribution width (RBC) [Ratio] 18.2 % High 11.5-15.0 [facility] Comment on above: Order Comment: Speci men Type: BLOOD SPECIMENOrdering Facility: [facility] Address: [address] [place] [address] Performed By: #### 5 7021-8 ####[facility] [id number] [place] [address] [place] Hematocrit (Bld) [Volume fraction] 27.1 % Low 36.0-46.0 [facility] Comment on above: Order Comment: Speci men Type: BLOOD SPECIMENOrdering Facility: [facility] Address: [address] [place] [address] Performed By: #### 5 7021-8 ####[facility] [id number] [place] [address] [place] Hemoglobin (Bld) [Mass/Vol] 7.5 g/dL Low 11.5-15.5 [facility] Comment on above: Order Comment: Speci men Type: BLOOD SPECIMENOrdering Facility: [facility] Address: [address] [place] [address] Performed By: #### 5 7021-8 ####[facility] [id number] [place] [address] [place] Immature granulocytes (Bld) [#/Vol] 10*3/uL Normal <0.10 [facility] Comment on above: Order Comment: Speci men Type: BLOOD SPECIMENOrdering Facility: [facility] Address: [address] [place] [address] Performed By: #### 5 7021-8 ####[facility] [id number] [place] [address] [place] Immature granulocytes/100 WBC (Bld) 0.3 % Normal [facility] Comment on above: Order Comment: Speci men Type: BLOOD SPECIMENOrdering Facility: [facility] Address: [address] [place] [address] Performed By: #### 5 7021-8 ####[facility] [id number] [place] [address] [place] Lymphocytes (Bld) [#/Vol] 1.05 10*3/uL Normal 1.00-4.00 [facility] Comment on above: Order Comment: Speci men Type: BLOOD SPECIMENOrdering Facility: [facility] Address: [address] [place] [address] Performed By: #### 5 7021-8 ####[facility]IA [id number] [place] [address] [place] Lymphocytes/100 WBC (Bld) 13.6 % Normal [facility] Comment on above: Order Comment: Speci men Type: BLOOD SPECIMENOrdering Facility: [facility] Address: [address] [place] [address] Performed By: #### 5 7021-8 ####[facility] [id number] [place] [address] [place] MCH (RBC) [Entitic mass] 23.6 pg Low 26.0-34.0 [facility] Comment on above: Order Comment: Speci men Type: BLOOD SPECIMENOrdering Facility: [facility] Address: [address] [place] [address] Performed By: #### 5 7021-8 ####[facility] [id number] [place] [address] [place] MCHC (RBC) [Mass/Vol] 27.7 g/dL Low 30.5-36.0 [facility] Comment on above: Order Comment: Speci men Type: BLOOD SPECIMENOrdering Facility: [facility] Address: [address] [place] [address] Performed By: #### 5 7021-8 ####[facility] [id number] [place] [address] [place] MCV (RBC) [Entitic vol] 85.2 fL Normal 80.0-100.0 [facility] Comment on above: Order Comment: Speci men Type: BLOOD SPECIMENOrdering Facility: [facility] Address: [address] [place] [address] Performed By: #### 5 7021-8 ####[facility] [id number] [place] [address] [place] Monocytes (Bld) [#/Vol] 0.70 10*3/uL Normal <0.87 [facility] Comment on above: Order Comment: Speci men Type: BLOOD SPECIMENOrdering Facility: [facility] Address: [address] [place] [address] Performed By: #### 5 7021-8 ####[facility]IA [id number] [place] [address] [place] Monocytes/100 WBC (Bld) 9.1 % Normal [facility] Comment on above: Order Comment: Speci men Type: BLOOD SPECIMENOrdering Facility: [facility] Address: [address] [place] [address] Performed By: #### 5 7021-8 ####[facility] [id number] [place] [address] [place] Neutrophils (Bld) [#/Vol] 5.69 10*3/uL Normal 1.45-7.50 [facility] Comment on above: Order Comment: Speci men Type: BLOOD SPECIMENOrdering Facility: [facility] Address: [address] [place] [address] Performed By: #### 5 7021-8 ####[facility] [id number] [place] [address] [place] Neutrophils/100 WBC (Bld) 73.9 % Normal [facility] Comment on above: Order Comment: Speci men Type: BLOOD SPECIMENOrdering Facility: [facility] Address: [address] [place] [address] Performed By: #### 5 7021-8 ####[facility]CL[facility] [id number] [place] [address] [place] Nucleated RBC (Bld) [#/Vol] 10*3/uL Normal <0.01 [facility] Comment on above: Order Comment: Speci men Type: BLOOD SPECIMENOrdering Facility: [facility] Address: [address] [place] [address] Performed By: #### 5 7021-8 ####[facility] [id number] [place] [address] [place] Nucleated RBC/100 WBC (Bld) [Ratio] 0.0 /100 WBC Normal [facility] Comment on above: Order Comment: Speci men Type: BLOOD SPECIMENOrdering Facility: [facility] Address: [address] [place] [address] Performed By: #### 5 7021-8 ####[facility] [id number] [place] [address] [place] Platelet mean volume (Bld) [Entitic vol] 10.8 fL Normal 9.0-12.7 [facility] Comment on above: Order Comment: Speci men Type: BLOOD SPECIMENOrdering Facility: [facility] Address: [address] [place] [address] Performed By: #### 5 7021-8 ####[facility] [id number] [place] [address] [place] Platelets (Bld) [#/Vol] 297 10*3/uL Normal 150-400 [facility] Comment on above: Order Comment: Speci men Type: BLOOD SPECIMENOrdering Facility: [facility] Address: [address] [place] [address] Performed By: #### 5 7021-8 ####[facility]CL[facility] [id number] [address] [address] [place] RBC (Bld) [#/Vol] 3.18 10*6/uL Low 3.90-5.20 [facility] Comment on above: Order Comment: Speci men Type: BLOOD SPECIMENOrdering Facility: [facility] Address: [address] [place] [address] Performed By: #### 5 7021-8 ####[facility] [id number] [place] [address] [place] WBC (Bld) [#/Vol] 7.70 10*3/uL Normal 3.70-11.00 [facility] Comment on above: Order Comment: Speci men Type: BLOOD SPECIMENOrdering Facility: [facility] Address: [address] [place] [address] Performed By: #### 5 7021-8 ####[facility] [id number] [address] [address] [place] Comprehensive metabolic 2000 panelon 12-18-2024 Albumin [Mass/Vol] 4.1 g/dL Normal 3.9-4.9 [facility] Comment on above: Order Comment: Speci men Type: BLOOD SPECIMENOrdering Facility: [facility] Address: [address] [place] [address] Performed By: #### 2 4331-1, 63760-5 ####[facility] [id number] [address] [address] [place] ALP [Catalytic activity/Vol] 90 U/L Normal 34-123 [facility] Comment on above: Order Comment: Speci men Type: BLOOD SPECIMENOrdering Facility: [facility] Address: [address] [place] [address] Performed By: #### 2 4331-1, 59162-9 ####[facility]CLIA [id number] [address] [address] [place] ALT [Catalytic activity/Vol] 11 U/L Normal 7-38 [facility] Comment on above: Order Comment: Speci men Type: BLOOD SPECIMENOrdering Facility: [facility] Address: [address] [place], [place] [address] Performed By: #### 2 4331-1, 46340-2 ####[facility] LABCLIA [id number] [place] [id number] [place] Anion gap [Moles/Vol] 12 mmol/L Normal 8-15 [facility] Comment on above: Order Comment: Speci men Type: BLOOD SPECIMENOrdering Facility: [facility] Address: [address] [place], [place] [address] Performed By: #### 2 4331-, 05581-7 ####[facility] [id number] [place] [address] [place] AST [Catalytic activity/Vol] 14 U/L Normal 13-35 [facility] Comment on above: Order Comment: Speci men Type: BLOOD SPECIMENOrdering Facility: [facility] Address: [address] [place], [place] [address] Performed By: #### 2 4331-, 33327-8 ####[facility]CL[facility] [id number] [address] [address] [place] Bilirubin [Mass/Vol] 0.4 mg/dL Normal 0.2-1.3 [facility] Comment on above: Order Comment: Speci men Type: BLOOD SPECIMENOrdering Facility: [facility] Address: [address] [place], [place] [address] Performed By: #### 2 4331-1, 23123-1 ####[facility]CL[facility] [id number] [facility] [address] [place] [address] [place] Calcium [Mass/Vol] 9.8 mg/dL Normal 8.5-10.2 [facility] Comment on above: Order Comment: Speci men Type: BLOOD SPECIMENOrdering Facility: [facility] Address: [address] [place], [place] [address] Performed By: #### 2 4331-1, ####[facility] [id number] [facility] [address] [place] [address] [place] Chloride [Moles/Vol] 109 mmol/L High 98-107 [facility] Comment on above: Order Comment: Speci men Type: BLOOD SPECIMENOrdering Facility: [facility] Address: [address] [place] [address] Performed By: #### 2 4331-, ####[facility] [id number] [facility] [address] [place] [address] [place] CO2 [Moles/Vol] 21 mmol/L Low 22-30 [facility] Comment on above: Order Comment: Speci men Type: BLOOD SPECIMENOrdering Facility: [facility] Address: [address] [place], [place] [address] Performed By: #### 2 4331-, ####[facility] [id number] [place] [facility] CENTERK [address] [place] [address] [place] Creatinine [Mass/Vol] 1.95 mg/dL High 0.58-0.96 [facility] Comment on above: Order Comment: Speci men Type: BLOOD SPECIMENOrdering Facility: [facility] Address: [address] [place], [place] [address] Performed By: #### 2 4331-1, ####[facility] [id number] [facility] [address] [address] [place] Creatinine and Glomerular filtration rate.predicted panel (S/P/Bld) 26 mL/min/1.73m??? Low >=60 [facility] Comment on above: Order Comment: Maxim davies Type: BLOOD SPECIMENOrdering Facility: [facility] Address: [address] [place] [address] Result Comment: Kathrine mated Glomerular Filtration Rate [...] actual GFR. Performed By: #### 2 4331-1, 85417-8 ####[facility]CLIA [id number] [place] [address] [place] Glucose [Mass/Vol] 132 mg/dL High 74-99 [facility] Comment on above: Order Comment: Maxim davies Type: BLOOD SPECIMENOrdering Facility: [facility] Address: [address] [place] [address] Result Comment: The [place] Diabetes Association (ADA) provides guidance for cutoff [...] Standards of Medical Care in Diabetes 2016, [place] [employer]. Diabetes Care. 2016.39(Suppl 1). Performed By: #### 2 4331-1, 01427-1 ####[facility] [id number] [place] [address] [place] Potassium [Moles/Vol] 5.2 mmol/L High 3.7-5.1 [facility] Comment on above: Order Comment: Speci men Type: BLOOD SPECIMENOrdering Facility: [facility] Address: [address] [place], [place] [address] Performed By: #### 2 4331-1, ####[facility] [id number] [facility] [address] [place] [address] [place] Protein [Mass/Vol] 7.5 g/dL Normal 6.3-8.0 [facility] Comment on above: Order Comment: Speci men Type: BLOOD SPECIMENOrdering Facility: [facility] Address: [address] [place], [place] [address] Performed By: #### 2 4331-1, ####[facility] [id number] [address] [address] [place] Sodium [Moles/Vol] 142 mmol/L Normal 136-144 [facility] Comment on above: Order Comment: Speci men Type: BLOOD SPECIMENOrdering Facility: [facility] Address: [address] [place], [place] [address] Performed By: #### 2 4331-1, ####[facility] [id number] [address] [address] [place] Urea nitrogen [Mass/Vol] 47 mg/dL High 7-21 [facility] Comment on above: Order Comment: Speci men Type: BLOOD SPECIMENOrdering Facility: [facility] Address: [address] [place], [place] [address] Performed By: #### 2 4331-1, ####[facility] [id number] [facility] [address] [address] [place] HbA1c (Bld)on 12-18-2024 Average glucose Estimated from glycated hemoglobin (Bld) [Mass/Vol] 140 mg/dL Normal [facility] Comment on above: Order Comment: Speci men Type: BLOOD SPECIMENOrdering Facility: [facility] Address: [address] [place] [address] Result Comment: eAG: (Estimated average glucose) is a calculated value from HgbA1c and is veterans employment representative of the average blood glucose level in the last 2-3 month period. Performed By: #### 5 5454-3 ####[facility] [id number] [address] [address] [place] HbA1c (Bld) [Mass fraction] 6.5 % High 4.3-5.6 [facility] Comment on above: Order Comment: Speci men Type: BLOOD SPECIMENOrdering Facility: [facility] Address: [address] [place] [address] Result Comment: Amer [place] Diabetes Association guidelines indicate that patients with HgbA1c in the range 5.7-6.4% are at increased risk for development of diabetes, and intervention by lifestyle modification may be beneficial. HgbA1c greater or equal to 6.5% is considered diagnostic of diabetes. Performed By: #### 5 5454-3 ####[facility] [id number] [place] [address] [place] Lipid 1996 panelon 5 Cholesterol [Mass/Vol] 113 mg/dL Normal <200 [facility] Comment on above: Order Comment: Speci men Type: BLOOD SPECIMENOrdering Facility: [facility] Address: [address] [place] [address] Result Comment: <200 mg/dL, Desirable 200-239 mg/dL, Borderline high >239 mg/dL, High Performed By: #### 2 4331-1, 72596-8 ####[facility] [id number] [place] [address] [place] Cholesterol in HDL [Mass/Vol] 38 mg/dL Low >39 [facility] Comment on above: Order Comment: Speci men Type: BLOOD SPECIMENOrdering Facility: [facility] Address: [address] [place] [address] Result Comment: 40-5 9 mg/dL, Acceptable >59 mg/dL, High: Negative risk factor for coronary heart disease <40 mg/dL, Low: Positive risk factor for coronary heart disease Performed By: #### 2 4331-1, 04723-6 ####[facility]CL[facility] [id number] [address] STATES OF [facility] Cholesterol in LDL [Mass/Vol] 58 mg/dL Normal <100 [facility] Comment on above: Order Comment: Trevori men Type: BLOOD SPECIMENOrdering Facility: [facility] Address: [address] [place] [address] Result Comment: <100 mg/dL, Optimal 100-129 mg/dL, Near optimal/above optimal 130-159 mg/dL, Borderline high 160-189 mg/dL, High >189 mg/dL, Very high Secondary prevention optimal LDL Cholesterol levels are recommended to be < 70 mg/dL Performed By: #### 2 4331-1, 46117-3 ####[facility] [id number] [address] Cholesterol in LDL/Cholesterol in HDL [Mass ratio] 1.53 {ratio} Normal <2.54 [facility] Comment on above: Order Comment: Maxim men Type: BLOOD SPECIMENOrdering Facility: [facility] Address: [address] [place] [address] Result Comment: Refe rence: 1. National Cholesterol Education Program ATP III Guideline At-A-Glance Quick Desk Reference: National Heart, Lung, and Blood [place]. National Institutes of Health. 2001: NIH Publication No. 01-3305. 2. An International Atherosclerosis Society position paper: global recommendations for the management of dyslipidemia: executive summary, Atherosclerosis. 2014: 232(2):410-413. Performed By: #### 2 4331-1, 28644-0 ####[facility] [id number] [address] [place] Cholesterol in VLDL [Mass/Vol] 17 mg/dL Normal <30 [facility] Comment on above: Order Comment: Maxim men Type: BLOOD SPECIMENOrdering Facility: [facility] Address: [address] [place] [address] Performed By: #### 2 4331-1, ####[facility]CL[facility] [id number] [address] [address] [place] Cholesterol non HDL [Mass/Vol] 75 mg/dL Normal <130 [facility] Comment on above: Order Comment: Speci men Type: BLOOD SPECIMENOrdering Facility: [facility] Address: [address] [place] [address] Result Comment: <130 mg/dL, Optimal 130-159 mg/dL, Near optimal/above optimal 160-189 mg/dL, Borderline high 190-219 mg/dL, High >219 mg/dL, Very high Secondary prevention optimal non HDL Cholesterol levels are recommended to be <100 mg/dL Performed By: #### 2 4331-1, ####[facility] [id number] [address] [address] [place] Cholesterol.total/Antonia sterol in HDL [Mass ratio] 2.97 {ratio} Normal <5.10 [facility] Comment on above: Order Comment: Speci men Type: BLOOD SPECIMENOrdering Facility: [facility] Address: [address] [place] [address] Performed By: #### 2 4331-1, ####[facility] [id number] [address] [address] [place] FASTING TIME 12 hrs Normal [facility] Comment on above: Order Comment: Speci men Type: BLOOD SPECIMENOrdering Facility: [facility] Address: [address] [place] [address] Performed By: #### 2 4331-1, ####[facility] [id number] [address] [address] [place] Triglyceride [Mass/Vol] 86 mg/dL Normal <150 [facility] Comment on above: Order Comment: Speci men Type: BLOOD SPECIMENOrdering Facility: [facility] Address: [address] [place] [address] Result Comment: <150 mg/dL, Normal 150-199 mg/dL, Borderline high 200-499 mg/dL, High >499 mg/dL, Very high Performed By: #### 2 4331-1, 36128-4 ####[facility]CL[facility] [id number] ASHELY JETER [address] OF [facility] CNOVon 11-27-2024 CNOV Office Visit (FAMPWS ) ROSA MYERS ([id number]) 1950 F Date Time Provider Department 11/27/24 2:00 PM RUFINA SOARES [facility] During your visit today, we recorded the following information about you: Pulse Respiration Blood pressure Weight 65/minute 16/minute 126/80 109.8 kg Rufina Soares APRN.[employer] SERVICE TECHNICIAN 11/27/2024 3:43 PM Signed This is a [...] CATARACT EXTRACTION HX Right 10/26/2017 EGD W/O [facility] SPEC VARICIES INJ N/A 02/24/2022 LIG/TRNSXJ FLP [...] 1 capsule by mouth once daily. Insulin [place], Disposable, (RELION PEN NEEDLES) 32 x 5/32 [...] swelling RESPIR (more content not included)... Normal [facility] 11-14-2024 [facility] Telephone (ZAINABWS) ROSA MYERS ([id number]) 1950 F Date Time Provider Department 11/14/24 AMADO JAMES During your visit today, we recorded the following information about you: Judie Paiz RN 11/14/2024 10:11 AM Signed Joseph MICHELE with [facility] calls to let provider know that [...] provider has questions. Judie Paiz, Maciel Badillo APRN.CNP 11/14/2024 10:26 AM Signed Noted. Okay to continue with the plan. Maciel Busby APRN.CNP Allergies As of Date: 11/14/2024 Noted Allergy [...] capsule by mouth once daily. - Insulin [place], Disposable, (RELION PEN NEEDLES) 32 x 5/32 [...] kidney disease, stage 4 (severe) (HCC) *04/15/2023 halfway current use of insulin (HCC) [Z79.4] 10/15/2023 Heart failure, unspecified (HCC) [I50.9] 04/15/2023 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*04/15/2023 Encounter Status:Closed by MACIEL BUSBY on 11/14/24 [facility] CNPNancie 10-20-2024 CNPN Telephone (COUMWS) ROSA MYERS ([id number]) 1950 F Date Time Provider Department 10/20/24 AMADO JAMES COUMWS During your visit today, we recorded the following information about you: Rajni Jiménez, RN 10/20/2024 12:14 PM Signed joseph with [facility] is calling to let pcp that they are re-certifying patient for nursing for help with wound care once weekly for the next 4 weeks. Allergies As of Date: 10/20/2024 Noted Allergy Reaction DIANA INHIBITORS 07/17/2005 NEOMYCIN 07/17/2005 Date Reviewed: 09/26/2024 Reviewed by: Yaz Christy MA - Fully Assessed Reason for Visit: Clinical Update [1735] Cmt: re-cert for Prescriptions as of 10/20/2024 [...] capsule by mouth once daily. - Insulin [place], Disposable, (RELION PEN NEEDLES) 32 x 5/32 [...] kidney disease, stage 4 (severe) (HCC) *04/15/2023 termination clerk current use of insulin (HCC) [Z79.4] 10/15/2023 Heart failure, unspecified (HCC) [I50.9] 04/15/2023 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*04/15/2023 Encounter Status:Closed by RAJNI JIMÉNEZ on 10/20/24 [facility] 09-29-2024 CNPN Telephone (FAMYINKA) ROSA MYERS ([id number]) 1950 F Date Time Provider Department 09/29/24 [facility]AMES [facility] During your visit today, we recorded the following information about you: Elsie Brock LPN 09/29/2024 10:13 AM Signed Joseph from [facility] calling to confirm pt's insulin dosages. Advised her of instructions per Ku6. She verbalizes understanding. She wanted to let [...] follws with wound center and Dr Erwin (organ fixer). IZABEL Yi Mark D, MD 09/29/2024 10:53 [...] capsule by mouth once daily. - Insulin [place], Disposable, (RELION PEN NEEDLES) 32 x 5/32 [...] kidney disease, stage 4 (severe) (HCC) *04/15/2023 halfway current use of insulin (HCC) [Z79.4] 10/15/2023 Heart failure, unspecified (HCC) [I50.9] 04/15/2023 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*04/15/2023 Encounter Status:Closed by YAZ CHRISTY on 09/29/24 [facility] CNOVon 09-26-2024 CNOV Office Visit (FAMPWS ) ROSA MYERS ([id number]) 1950 F Date Time Provider Department 09/26/24 9:40 AM AMADO JAMES During your visit today, [...] and did have to go to a Group Home and stay, but is now back home. [...] 1 capsule by mouth once daily. Insulin Dec[place], Disposable, (RELI (more content not included)... Normal [facility] 09-15-2024 [facility] ([id number]) 1950 F Date Time Provider Department 09/15/24 AMADO JAMES [facility] During your visit today, we recorded the following information about you: Juana Castaneda RN 09/15/2024 10:42 AM Signed Juana calling from [facility] to report plan of care for patient and longterm will continue to visit patient 1 time a week for 2 weeks. Jail will continue work with patient on wound care. No call back needed. RYNE Saldaña Jesse, APRN.[facility] 09/15/2024 11:22 AM Signed Noted. Maciel Busby APRN.[facility] Allergies As of Date: 09/15/2024 Noted Allergy Reaction DIANA INHIBITORS 07/17/2005 NEOMYCIN 07/17/2005 Date Reviewed: 08/28/2024 Reviewed by: Marguerite Rubio LPN - Fully Assessed Reason for Visit: Jail Continued Plan of Care [Other] Prescriptions as [...] capsule by mouth once daily. - Insulin Dec[place], Disposable, (RELION PEN NEEDLES) 32 x 5/32 [...] kidney disease, stage 4 (severe) (HCC) *04/15/2023 halfway current use of insulin (HCC) [Z79.4] 10/15/2023 Heart failure, unspecified (HCC) [I50.9] 04/15/2023 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*04/15/2023 Encounter Status:Closed by MACIEL BUSBY on 09/15/24 [facility] [place] 09-11-2024 [facility] Telephone (FAMPWS) ROSA MYERS ([id number]) 1950 F Date Time Provider Department 09/11/24 AMADO JAMES During your visit today, we recorded the following information about you: Juana Castaneda RN 09/11/2024 9:28 AM Signed Patient's son Marcell calls with patient's blood sugars. Date AM Lunch Supper 09/07 [phone] 09/08 [phone] 09/09 [phone] RYNE aSldaña Ashley, APRN.CNP 09/11/2024 3:31 PM Signed Can you please call the patient's son and ask what dosing insulin are they up to at this time? Has he been titrating up the Lantus? How much Humalog has she been taking with her meals? ERIN Pearl Barbara, LPN 09/11/2024 3:34 PM Signed TC to [...] 3 times a day. IZABEL Parish Ashley, APRN.CNP 09/13/2024 10:52 AM Signed Can you please [...] capsule by mouth once daily. - Insulin [place], Disposable, (RELION PEN NEEDLES) 32 x 5/32 " ndle Use as directed with insulin pen. 250.00. 4 injections/day. On insulin. - Blood-Glucose Meter, Drum-type (ACCU-CHEK COMPACT PLUS CARE) kit Use as directed (more content not included)... Normal [facility] 09-08-2024 [facility] Telephone (MALISSA) ROSA MYERS ([id number]) 1950 F Date Time Provider Department 09/08/24 AMADO JAMES During your visit today, we recorded the following information about you: Rajni Jiménez, RYNE 09/08/2024 11:07 AM Vesna Hall from [facility] is calling requesting an order [...] capsule by mouth once daily. - Insulin [place], Disposable, (RELION PEN NEEDLES) 32 x 5/32 [...] 09/30/2021 Chronic kidney disease, stage 4 (severe) ([facility]) *04/15/2023 halfway current use of insulin ([facility]) [Z79.4] 10/15/2023 Heart failure, unspecified (HCC) [I50.9] 04/15/2023 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*04/15/2023 Encounter Status:Closed by MARIZA GRAHAM on 09/08/24 [facility] Telephone (FAMPWS) ROSA MYERS ([id number]) 1950 F Date Time Provider Department 09/04/24 [facility] your visit today, we recorded the following information about you: Angelica Nassar LPN 09/04/2024 10:01 AM Signed Isabel licensed social worker from [facility] Health is asking for a verbal [...] capsule by mouth once daily. - Insulin [place], Disposable, (RELION PEN NEEDLES) 32 x 5/32 [...] kidney disease, stage 4 (severe) (HCC) *04/15/2023 halfway current use of insulin (HCC) [Z79.4] 10/15/2023 Heart failure, unspecified (HCC) [I50.9] 04/15/2023 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*04/15/2023 Encounter Status:Closed by MARIZA GRAHAM on 09/04/24 [facility] 09-01-2024 [facility] Tele[facility] (FAMWS) ROSA MYERS ([id number]) 1950 F Date Time Provider Department 09/01/24 RUFINA SOARES [facility] During your visit today, we recorded the following information about you: Marguerite Rubio LPN 09/01/2024 2:36 PM Signed Pt son called with Pt blood sugars from the week. - morning -187 noon- 230 evening - 237 Wed- morning -207 noon - 262 evening - 275 Thur - morning -256 noon - 303 evening -278 Please let Pt and son know if you want changes. IZABEL Lewis Ashley, APRN.RENEE 09/01/2024 2:53 PM Signed Can you please [...] capsule by mouth once daily. - Insulin [place], Disposable, (RELION PEN NEEDLES) 32 x 5/32 [...] 10/15/2023 Anemi (more content not included)... Normal [facility] CBC W Auto Differential pane l (Bld)on 08-31-2024 Basophils (Bld) [#/Vol] 0.06 10*3/uL Normal <0.11 [facility] Comment on above: Order Comment: Speci men Type: BLOOD SPECIMENOrdering Facility: [facility] Address: [address] [place] [address] Performed By: #### 5 7021-8 ####[facility]CL[facility] [id number] [place] [address] [place] Basophils/100 WBC (Bld) 0.8 % Normal C [facility] Comment on above: Order Comment: Speci men Type: BLOOD SPECIMENOrdering Facility: [facility] Address: [address] [place] [address] Performed By: #### 5 7021-8 ####[facility]CL[facility] [id number] [place] [address] [place] Differential cell count method Nom (Bld) Auto Normal [facility] Comment on above: Order Comment: Speci men Type: BLOOD SPECIMENOrdering Facility: [facility] Address: [address] [place] [address] Performed By: #### 5 7021-8 ####[facility]CL[facility] [id number] [place] [address] [place] Eosinophils (Bld) [#/Vol] 0.20 10*3/uL Normal <0.46 [facility] Comment on above: Order Comment: Speci men Type: BLOOD SPECIMENOrdering Facility: [facility] Address: [address] [place] [address] Performed By: #### 5 7021-8 ####[facility] [id number] [place] [address] [place] Eosinophils/100 WBC (Bld) 2.6 % Normal [facility] Comment on above: Order Comment: Speci men Type: BLOOD SPECIMENOrdering Facility: [facility] Address: [address] [place] [address] Performed By: #### 5 7021-8 ####[facility] [id number] [place] [address] [place] Erythrocyte distribution width (RBC) [Ratio] 18.2 % High 11.5-15.0 [facility] Comment on above: Order Comment: Speci men Type: BLOOD SPECIMENOrdering Facility: [facility] Address: [address] [place] [address] Performed By: #### 5 7021-8 ####[facility] [id number] [place] [address] [place] Hematocrit (Bld) [Volume fraction] 28.2 % Low 36.0-46.0 [facility] Comment on above: Order Comment: Speci men Type: BLOOD SPECIMENOrdering Facility: [facility] Address: [address] [place] [address] Performed By: #### 5 7021-8 ####[facility] [id number] [place] [address] [place] Hemoglobin (Bld) [Mass/Vol] 8.3 g/dL Low 11.5-15.5 [facility] Comment on above: Order Comment: Speci men Type: BLOOD SPECIMENOrdering Facility: [facility] Address: [address] [place] [address] Performed By: #### 5 7021-8 ####[facility]CL[facility] [id number] [place] [address] [place] Immature granulocytes (Bld) [#/Vol] 10*3/uL Normal <0.10 [facility] Comment on above: Order Comment: Speci men Type: BLOOD SPECIMENOrdering Facility: [facility] Address: [address] [place] [address] Performed By: #### 5 7021-8 ####[facility] [id number] [place] [address] [place] Immature granulocytes/100 WBC (Bld) 0.3 % Normal [facility] Comment on above: Order Comment: Speci men Type: BLOOD SPECIMENOrdering Facility: [facility] Address: [address] [place] [address] Performed By: #### 5 7021-8 ####[facility] [id number] [place] [address] [place] Lymphocytes (Bld) [#/Vol] 1.12 10*3/uL Normal 1.00-4.00 [facility] Comment on above: Order Comment: Speci men Type: BLOOD SPECIMENOrdering Facility: [facility] Address: [address] [place] [address] Performed By: #### 5 7021-8 ####[facility]IA [id number] [place] [address] [place] Lymphocytes/100 WBC (Bld) 14.5 % Normal [facility] Comment on above: Order Comment: Speci men Type: BLOOD SPECIMENOrdering Facility: [facility] Address: [address] [place] [address] Performed By: #### 5 7021-8 ####[facility] [id number] [place] [address] [place] MCH (RBC) [Entitic mass] 25.2 pg Low 26.0-34.0 [facility] Comment on above: Order Comment: Speci men Type: BLOOD SPECIMENOrdering Facility: [facility] Address: [address] [place] [address] Performed By: #### 5 7021-8 ####[facility] [id number] [place] [address] [place] MCHC (RBC) [Mass/Vol] 29.4 g/dL Low 30.5-36.0 [facility] Comment on above: Order Comment: Speci men Type: BLOOD SPECIMENOrdering Facility: [facility] Address: [address] [place] [address] Performed By: #### 5 7021-8 ####[facility]IA [id number] [place] [address] [place] MCV (RBC) [Entitic vol] 85.7 fL Normal 80.0-100.0 [facility] Comment on above: Order Comment: Speci men Type: BLOOD SPECIMENOrdering Facility: [facility] Address: [address] [place] [address] Performed By: #### 5 7021-8 ####[facility]IA [id number] [place] [address] [place] Monocytes (Bld) [#/Vol] 0.55 10*3/uL Normal <0.87 [facility] Comment on above: Order Comment: Speci men Type: BLOOD SPECIMENOrdering Facility: [facility] Address: [address] [place] [address] Performed By: #### 5 7021-8 ####[facility] [id number] [place] [address] [place] Monocytes/100 WBC (Bld) 7.1 % Normal [facility] Comment on above: Order Comment: Speci men Type: BLOOD SPECIMENOrdering Facility: [facility] Address: [address] [place] [address] Performed By: #### 5 7021-8 ####[facility] [id number] [place] [address] [place] Neutrophils (Bld) [#/Vol] 5.77 10*3/uL Normal 1.45-7.50 [facility] Comment on above: Order Comment: Speci men Type: BLOOD SPECIMENOrdering Facility: [facility] Address: [address] [place] [address] Performed By: #### 5 7021-8 ####[facility] [id number] [place] [address] [place] Neutrophils/100 WBC (Bld) 74.7 % Normal [facility] Comment on above: Order Comment: Speci men Type: BLOOD SPECIMENOrdering Facility: [facility] Address: [address] [place] [address] Performed By: #### 5 7021-8 ####[facility] [id number] [place] [address] [place] Nucleated RBC (Bld) [#/Vol] 10*3/uL Normal <0.01 [facility] Comment on above: Order Comment: Speci men Type: BLOOD SPECIMENOrdering Facility: [facility] Address: [address] [place] [address] Performed By: #### 5 7021-8 ####[facility] [id number] [place] [address] [place] Nucleated RBC/100 WBC (Bld) [Ratio] 0.0 /100 WBC Normal [facility] Comment on above: Order Comment: Speci men Type: BLOOD SPECIMENOrdering Facility: [facility] Address: [address] [place] [address] Performed By: #### 5 7021-8 ####[facility] [id number] [place] [address] [place] Platelet mean volume (Bld) [Entitic vol] 11.3 fL Normal 9.0-12.7 [facility] Comment on above: Order Comment: Speci men Type: BLOOD SPECIMENOrdering Facility: [facility] Address: [address] [place] [address] Performed By: #### 5 7021-8 ####[facility] [id number] [place] [address] [place] Platelets (Bld) [#/Vol] 246 10*3/uL Normal 150-400 [facility] Comment on above: Order Comment: Speci men Type: BLOOD SPECIMENOrdering Facility: [facility] Address: [address] [place] [address] Performed By: #### 5 7021-8 ####[facility] [id number] [place] [address] [place] RBC (Bld) [#/Vol] 3.29 10*6/uL Low 3.90-5.20 [facility] Comment on above: Order Comment: Speci men Type: BLOOD SPECIMENOrdering Facility: [facility] Address: [address] [place] [address] Performed By: #### 5 7021-8 ####[facility] [id number] [place] [address] [place] WBC (Bld) [#/Vol] 7.72 10*3/uL Normal 3.70-11.00 [facility] Comment on above: Order Comment: Speci men Type: BLOOD SPECIMENOrdering Facility: [facility] Address: [address] [place] [address] Performed By: #### 5 7021-8 ####[facility] [id number] [place] [address] [place] Comprehensive metabolic 2000 panelon 08-31-2024 Albumin [Mass/Vol] 3.7 g/dL Low 3.9-4.9 [facility] Comment on above: Order Comment: Speci men Type: BLOOD SPECIMENOrdering Facility: [facility] Address: [address] [place] [address] Performed By: #### 2 4323-8, 40036-1 ####[facility] [id number] [place] [id number] [place] ALP [Catalytic activity/Vol] 76 U/L Normal 34-123 [facility] Comment on above: Order Comment: Speci men Type: BLOOD SPECIMENOrdering Facility: [facility] Address: [address] [place], [place] [address] Performed By: #### 2 4323-8, 63836-8 ####[facility] [id number] [place] [address] [place] ALT [Catalytic activity/Vol] 10 U/L Normal 7-38 [facility] Comment on above: Order Comment: Speci men Type: BLOOD SPECIMENOrdering Facility: [facility] Address: [address] [place], [place] [address] Performed By: #### 2 4323-8, 76532-3 ####[facility] [id number] [place] [address] [place] Anion gap [Moles/Vol] 15 mmol/L Normal 8-15 [facility] Comment on above: Order Comment: Speci men Type: BLOOD SPECIMENOrdering Facility: [facility] Address: [address] [place], [place] [address] Performed By: #### 2 4323-8, 45124-4 ####[facility]IA [id number] [place] [address] [place] AST [Catalytic activity/Vol] 11 U/L Low 13-35 [facility] Comment on above: Order Comment: Speci men Type: BLOOD SPECIMENOrdering Facility: [facility] Address: [address] [place], [place] [address] Performed By: #### 2 4323-8, 81349-6 ####[facility] [id number] [place] [address] [place] Bilirubin [Mass/Vol] 0.4 mg/dL Normal 0.2-1.3 [facility] Comment on above: Order Comment: Speci men Type: BLOOD SPECIMENOrdering Facility: [facility] Address: [address] [place] [address] Performed By: #### 2 4323-8, 69164-8 ####[facility] [id number] [place] [address] [place] Calcium [Mass/Vol] 9.4 mg/dL Normal 8.5-10.2 [facility] Comment on above: Order Comment: Speci men Type: BLOOD SPECIMENOrdering Facility: [facility] Address: [address] [place] [address] Performed By: #### 2 4323-8, 74659-0 ####[facility]IA [id number] [place] [address] [place] Chloride [Moles/Vol] 100 mmol/L Normal 98-107 [facility] Comment on above: Order Comment: Speci men Type: BLOOD SPECIMENOrdering Facility: [facility] Address: [address] [place] [address] Performed By: #### 2 4323-8, 34514-3 ####[facility] [id number] [place] [address] [place] CO2 [Moles/Vol] 22 mmol/L Normal 22-30 [facility] Comment on above: Order Comment: Speci men Type: BLOOD SPECIMENOrdering Facility: [facility] Address: [address] [place] [address] Performed By: #### 2 4323-8, 03364-4 ####[facility]IA [id number] [place] [address] [place] Creatinine [Mass/Vol] 1.79 mg/dL High 0.58-0.96 [facility] Comment on above: Order Comment: Maxim davies Type: BLOOD SPECIMENOrdering Facility: [facility] Address: [address] [place] [address] Performed By: #### 2 4323-8, 71988-7 ####[facility] [id number] [place] [address] [place] Creatinine and Glomerular filtration rate.predicted panel (S/P/Bld) 29 mL/min/1.73m??? Low >=60 [facility] Comment on above: Order Comment: Maxim davies Type: BLOOD SPECIMENOrdering Facility: [facility] Address: [address] [place] [address] Result Comment: Kathrine mated Glomerular Filtration Rate [...] actual GFR. Performed By: #### 2 4323-8, 88235-9 ####[facility] [id number] [place] [address] [place] Glucose [Mass/Vol] 271 mg/dL High 74-99 [facility] Comment on above: Order Comment: Maxim davies Type: BLOOD SPECIMENOrdering Facility: [facility] Address: [address] [place] [address] Result Comment: The [place] Diabetes Association (ADA) provides guidance for cutoff [...] Standards of Medical Care in Diabetes 2016, [place] [employer]. Diabetes Care. 2016.39(Suppl 1). Performed By: #### 2 4323-8, 52269-7 ####[facility] [id number] [address] [address] [place] Potassium [Moles/Vol] 4.4 mmol/L Normal 3.7-5.1 [facility] Comment on above: Order Comment: Speci men Type: BLOOD SPECIMENOrdering Facility: [facility] Address: [address] [place] [address] Performed By: #### 2 4323-8, 96783-1 ####[facility]IA [id number] [place] [address] [place] Protein [Mass/Vol] 6.9 g/dL Normal 6.3-8.0 [facility] Comment on above: Order Comment: Speci men Type: BLOOD SPECIMENOrdering Facility: [facility] Address: [address] [place] [address] Performed By: #### 2 4323-8, ####[facility]IA [id number] [place] [address] [place] Sodium [Moles/Vol] 137 mmol/L Normal 136-144 [facility] Comment on above: Order Comment: Speci men Type: BLOOD SPECIMENOrdering Facility: [facility] Address: [address] [address] Performed By: #### 2 4323-8, 70821-0 ####[facility] LABIA [id number] [place] [address] [place] Urea nitrogen [Mass/Vol] 28 mg/dL High 7-21 [facility] Comment on above: Order Comment: Speci men Type: BLOOD SPECIMENOrdering Facility: [facility] Address: [address] [address] Performed By: #### 2 4323-8, 92504-4 ####[facility]IA [id number] [address] HbA1c (Bld)on 08-31-2024 Average glucose Estimated from glycated hemoglobin (Bld) [Mass/Vol] 111 mg/dL Normal [facility] Comment on above: Order Comment: Maxim davies Type: BLOOD SPECIMENOrdering Facility: [facility] Address: [address] [place] [address] Result Comment: eAG: (Estimated average glucose) is a calculated value from HgbA1c and is veterans employment representative of the average blood glucose level in the last 2-3 month period. Performed By: #### 5 5454-3 ####[facility] [id number] [address] HbA1c (Bld) [Mass fraction] 5.5 % Normal 4.3-5.6 [facility] Comment on above: Order Comment: Maxim davies Type: BLOOD SPECIMENOrdering Facility: [facility] Address: [address] [place] [address] Result Comment: [place] Diabetes Association guidelines indicate that patients with HgbA1c in the range 5.7-6.4% are at increased risk for development of diabetes, and intervention by lifestyle modification may be beneficial. HgbA1c greater or equal to 6.5% is considered diagnostic of diabetes. Performed By: #### 5 5454-3 ####[facility]IA [id number] [address] OF [facility] Lipid 1996 panelon 4 Cholesterol [Mass/Vol] 116 mg/dL Normal <200 [facility] Comment on above: Order Comment: Maxim davies Type: BLOOD SPECIMENOrdering Facility: [facility] Address: [address] [place] [address] Result Comment: <200 mg/dL, Desirable 200-239 mg/dL, Borderline high >239 mg/dL, High Performed By: #### 2 4323-8, 72289-4 ####[facility] [id number] [address] OF [facility] Cholesterol in HDL [Mass/Vol] 35 mg/dL Low >39 [facility] Comment on above: Order Comment: Maxim davies Type: BLOOD SPECIMENOrdering Facility: [facility] Address: [address] [place] [address] Result Comment: 40-5 9 mg/dL, Acceptable >59 mg/dL, High: Negative risk factor for coronary heart disease <40 mg/dL, Low: Positive risk factor for coronary heart disease Performed By: #### 2 4323-8, 13931-7 ####[facility] [id number] [address] Cholesterol in LDL [Mass/Vol] 54 mg/dL Normal <100 [facility] Comment on above: Order Comment: Maxim davies Type: BLOOD SPECIMENOrdering Facility: [facility] Address: [address] [place] [address] Result Comment: <100 mg/dL, Optimal 100-129 mg/dL, Near optimal/above optimal 130-159 mg/dL, Borderline high 160-189 mg/dL, High >189 mg/dL, Very high Secondary prevention optimal LDL Cholesterol levels are recommended to be < 70 mg/dL Performed By: #### 2 4323-8, 22366-3 ####[facility] [id number] [address] OF [facility] Cholesterol in LDL/Cholesterol in HDL [Mass ratio] 1.54 {ratio} Normal <2.54 [facility] Comment on above: Order Comment: Trevoryoandy davies Type: BLOOD SPECIMENOrdering Facility: [facility] Address: [address] [place] [address] Result Comment: Ermias sheffield: 1. National Cholesterol Education Program ATP III Guideline At-A-Glance Quick Desk Reference: National Heart, Lung, and Blood [place]. National Institutes of Health. 2001: NIH Publication No. 01-3305. 2. An International Atherosclerosis Society position paper: global recommendations for the management of dyslipidemia: executive summary, Atherosclerosis. 2014: 232(2):410-413. Performed By: #### 2 4323-8, 82222-2 ####[facility] [id number] [address] [address] [place] Cholesterol in VLDL [Mass/Vol] 27 mg/dL Normal <30 [facility] Comment on above: Order Comment: Speci men Type: BLOOD SPECIMENOrdering Facility: [facility] Address: [address] [place] [address] Performed By: #### 2 4323-8, 15912-5 ####[facility] [id number] [place] [address] [place] Cholesterol non HDL [Mass/Vol] 81 mg/dL Normal <130 [facility] Comment on above: Order Comment: Speci men Type: BLOOD SPECIMENOrdering Facility: [facility] Address: [address] [place] [address] Result Comment: <130 mg/dL, Optimal 130-159 mg/dL, Near optimal/above optimal 160-189 mg/dL, Borderline high 190-219 mg/dL, High >219 mg/dL, Very high Secondary prevention optimal non HDL Cholesterol levels are recommended to be <100 mg/dL Performed By: #### 2 4323-8, 51313-1 ####[facility] [id number] [place] [address] [place] Cholesterol.total/Antonia sterol in HDL [Mass ratio] 3.31 {ratio} Normal <5.10 [facility] Comment on above: Order Comment: Speci men Type: BLOOD SPECIMENOrdering Facility: [facility] Address: [address] [place] [address] Performed By: #### 2 4323-8, ####[facility] [id number] [place] [address] [place] FASTING TIME 12 hrs Normal [facility] Comment on above: Order Comment: Speci men Type: BLOOD SPECIMENOrdering Facility: [facility] Address: [address] [place] [address] Performed By: #### 2 4323-8, 92637-9 ####[facility] [id number] [place] [address] [place] Triglyceride [Mass/Vol] 133 mg/dL Normal <150 [facility] Comment on above: Order Comment: Speci men Type: BLOOD SPECIMENOrdering Facility: [facility] Address: [address] [place] [address] Result Comment: <150 mg/dL, Normal 150-199 mg/dL, Borderline high 200-499 mg/dL, High >499 mg/dL, Very high Performed By: #### 2 4323-8, 71694-1 ####[facility] [id number] [address] OF [facility] [place] 08-30-2024 [facility] ROSA MYERS ([id number]) 1950 F Date Time Provider Department 08/30/24 [facility] During your visit today, we recorded the following information about you: Aimee French RN 08/30/2024 1:38 PM Signed RICKY Gardner @ [facility] calling with plan of care. OT will see patient 1 x/weekf for one week, 2 x/week for two weeks, and 1x/week for one week for safety and strength training needed for ADLs. If agree, no call back needed. RYNE Duval Ashley, APRN.BMW SERVICE TECHNICIAN 08/31/2024 7:28 AM Signed Noted, thank you Rufina Tannhof, PROPERTY MANAGEMENT COORDINATOR.BMW SERVICE TECHNICIAN Allergies As of Date: 08/30/2024 Noted Allergy [...] capsule by mouth once daily. - Insulin [place], Disposable, (RELION PEN NEEDLES) 32 x 5/32 [...] kidney disease, stage 4 (severe) (HCC) *04/15/2023 termination clerk current use of insulin (HCC) [Z79.4] 10/15/2023 Heart failure, unspecified (HCC) [I50.9] 04/15/2023 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*04/15/2023 Encounter Status:Closed by RUFINA SOARES on 08/31/24 [facility] [place] 08-29-2024 RENE[place] Telephone ([facility]) ROSA MYERS ([id number]) 1950 F Date Time Provider Department 08/29/24 AMADO JAMES During your visit today, we recorded the following information about you: Juana Castaneda RN 08/29/2024 11:01 AM Signed Rufina PT calling from [facility] to report plan of care [...] capsule by mouth once daily. - Insulin [place], Disposable, (RELION PEN NEEDLES) 32 x 5/32 [...] kidney disease, stage 4 (severe) (HCC) *04/15/2023 halfway current use of insulin (HCC) [Z79.4] 10/15/2023 Heart failure, unspecified (HCC) [I50.9] 04/15/2023 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*04/15/2023 Encounter Status:Closed by AMADO JAMES on 08/29/24 [facility] 08-28-2024 [facility] ROSA MYERS ([id number]) 1950 Date Time Provider Department 08/28/24 2:00 PM [facility] During your visit today, we recorded [...] 10 units and Notify Provider Rufina Soares APRN.CNP 08/28/2024 4:06 PM Signed This is a 74 year old female who presents today with: Patient presents with: Follow Up: Hosptial follow up hupoglycemia HISTORY OF PRESENT ILLNESS: Rosa Myers is a 74 year old female. Patient presents with: Follow Up: Hosptial follow up hupoglycemia HOSPITAL/ER FOLLOW UP: Reason for visit: Altered level of consciousness transported by EMS Which facility: [facility] Date of visit: 08/19/2024-08/22/2024 Diagnosis: Hypoglycemia, hypothermia, [...] History of diabetic ulcers/wounds Follows with cardiology, [facility], . Living with , son lives in [facility] on same property. PAST MEDICAL HISTORY: PAST MEDICAL HISTORY Diagnosis Date Allergic rhinitis due to other allergen Essential hypertension, benign Type II or unspecified type diabetes mellitus without mention of complication, uncontrolled PAST SURGICAL HISTORY Procedure Laterality Date CATARACT EXTRACTION HX Right 10/26/2017 EGD W/O [facility] SPEC VARICIES INJ N/A 02/24/2022 LIG/TRNSXJ FLP [...] NEEDLE) 31 (more content not included)... Normal [facility] [place] 08-25-2024 [place] Telephone ([facility]) ROSA MYERS ([id number]) 1950 F Date Time Provider Department 08/25/24 AMADO JAMES [facility] During your visit today, we recorded the following information about you: Vicki Sawant IZABEL 08/25/2024 1:06 PM Signed Bailey WONG calling [...] capsule by mouth once daily. - Insulin [place], Disposable, (RELION PEN NEEDLES) 32 x 5/32 [...] kidney disease, stage 4 (severe) (HCC) *04/15/2023 termination clerk current use of insulin ([facility]) [Z79.4] 10/15/2023 Heart failure, unspecified ([facility]) [I50.9] 04/15/2023 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*04/15/2023 Encounter Status:Closed by MARIZA GRAHAM on [facility]/25/[facility] Telephone ([facility]) ROSA MYERS ([id number]) 1950 F Date Time Provider Department 08/22/24 [facility] During your visit today, we recorded the following information about you: Hyacinth Greer LPN 08/22/2024 9:39 AM Signed Vinay with [facility] is calling to report that pt is currently in [facility] for hypoglycemia. Pt may get discharged today or tomorrow and possibly with 2L of O2. Pt has orders for longterm, PT, OT, and SW. Vinay is asking [...] capsule by mouth once daily. - Insulin [place], Disposable, (RELION PEN NEEDLES) 32 x 5/32 [...] kidney disease, stage 4 (severe) (HCC) *04/15/2023 termination clerk current use of insulin (HCC) [Z79.4] 10/15/2023 Heart failure, unspecified (HCC) [I50.9] 04/15/2023 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*04/15/2023 Encounter Status:Closed by CHUYITA FONTANA on 08/22/24 [facility] ROSA MYERS ([id number]) 1950 F Date Time Provider Department 08/18/24 AMADO JAMES [facility] During your visit today, we recorded the following information about you: Diana Whittington LPN 08/18/2024 3:33 PM Signed Will from [email or web address] [place] [employer] calling asking if PCP would follow patient and sign orders for PT/OT? Patient was in [facility]. Please advise Amado James MD 08/18/2024 4:39 PM Signed I will follow and sign orders as requested MD Mackenzie Nava Beth, LPN 08/18/2024 4:43 PM Signed Phoned [facility] order line and [...] capsule by mouth once daily. - Insulin [place], Disposable, (RELION PEN NEEDLES) 32 x 5/32 [...] kidney disease, stage 4 (severe) (HCC) *04/15/2023 halfway current use of insulin (HCC) [Z79.4] 10/15/2023 Heart failure, unspecified (HCC) [I50.9] 04/15/2023 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*04/15/2023 Encounter Status:Closed by DIANA WHITTINGTON on 08/18/24 [facility] 07-13-2024 [facility] ROAS MYERS ([id number]) 1950 F Date Time Provider Department 07/13/24 [facility] During your visit today, we recorded the following information about you: Laura Palomares, IZABEL 07/13/2024 3:53 PM Signed Dolly pharmacist from [employer] calling states received script for Levemir for pt this is being discontinued . There are no alternatives coming up but she states most likely Lantus. . New script needs sent to [facility] for pt. Amado James MD 07/13/2024 4:09 [...] capsule by mouth once daily. - Insulin [place], Disposable, (RELION PEN NEEDLES) 32 x 5/32 [...] kidney disease, stage 4 (severe) (HCC) *04/15/2023 halfway current use of insulin (HCC) [Z79.4] 10/15/2023 [...] CNOV Office Visit ([facility] ) ROSA MYERS ([id number]) 1950 F Date Time Provider Department 07/11/24 [...] as PCP - General Dr. Stallings or LOOP TACKER Provider - [facility]/Cardiology. Dr. Erwin - Podiatry/Wound Center. [...] with exertion. Does follow with Cardiology at [facility] [facility]t [facility]. On current regimen of Diovan 160 mg once daily and Coreg 12.5 mg bid. Lipid/CAD - Taking Plavix 75 mg once daily, Lipitor 40 mg once daily and ASA 81 mg daily. Follows with [facility]. DM - Checks sugars at home once daily with FBS of 90 this morning. Generally FBS is 130-160. Has been having increased episodes of lows (5) over the past month, seems to correlate with increased use of abx due to her wounds. Is following with Dr. Erwin at [facility] for wound on b/l feet. [...] daily. E (more content not included)... Normal [facility] 06-16-2024 [facility] ROS[facility] MYERS ([id number]) 1950 F Date Time Provider Department 06/16/24 [facility] During your visit today, we recorded the following information about you: Aston Felder RN 06/16/2024 11:39 AM Signed Patricia [facility] called in and wanted Pts last OV note faxed over. She states the only diagnosis they have is foot ulcer, and she wanted more diagnoses to put down. Faxed last OV note to fax # [phone]. Allergies As of Date: 06/16/2024 Noted Allergy [...] capsule by mouth once daily. - Insulin [place], Disposable, (RELION PEN NEEDLES) 32 x 5/32 [...] kidney disease, stage 4 (severe) (HCC) *04/15/2023 termination clerk current use of insulin (HCC) [Z79.4] 10/15/2023 Heart failure, unspecified (HCC) [I50.9] 04/15/2023 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*04/15/2023 Encounter Status:Closed by ASTON FELDER [facility] ROS[facility] MY[facility] ([id number]) 1950 F Date Time Provider Department 06/02/24 [facility] During your visit today, we recorded the following information about you: Aga Castro RN 06/02/2024 2:35 PM Signed Joseph with [facility] calling and requesting most recent office visit for patient be faxed to them at [phone] for continuity of care for Home Health [...] capsule by mouth once daily. - Insulin [place], Disposable, (RELION PEN NEEDLES) 32 x 5/32 [...] kidney disease, stage 4 (severe) (HCC) *04/15/2023 halfway current use of insulin (HCC) [Z79.4] 10/15/2023 Heart failure, unspecified (HCC) [I50.9] 04/15/2023 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*04/15/2023 Encounter Status:Closed by AGA CASTRO on 06/02/24 [facility] SHAINAOValen 05-06-2024 CNOV Office Visit ([facility] ) ROSA MYERS ([id number]) 1950 F Date Time Provider Department 05/06/24 [...] 1 capsule by mouth once daily. Insulin [place], Disposable, (RELION PEN NEEDLES) 32 x 5/32 [...] done Shingrix (more content not included)... Normal [facility] 04-18-2024 [facility] Telephone ([facility]) ROSA MYERS ([id number]) 1950 F Date Time Provider Department 04/18/24 [facility] During your visit today, we recorded [...] capsule by mouth once daily. - Insulin [place], Disposable, (RELION PEN NEEDLES) 32 x 5/32 [...] kidney disease, stage 4 (severe) (HCC) *04/15/2023 halfway current use of insulin (HCC) [Z79.4] 10/15/2023 Heart failure, unspecified (HCC) [I50.9] 04/15/2023 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*04/15/2023 Encounter Status:Closed by DIANA WHITTINGTON on 04/19/24 Normal [facility] CBC panel Auto (Bld)on 04-15 Erythrocyte distribution width (RBC) [Ratio] 15.9 % High 11.5-15.0 [facility] Comment on above: Order Comment: Speci men Type: BLOOD SPECIMENOrdering Facility: [facility] Address: [address] [place] [address] Performed By: #### 5 8410-2 ####[facility] LABCL[facility] [id number] [place] [address] [place] Hematocrit (Bld) [Volume fraction] 36.0 % Normal 36.0-46.0 [facility] Comment on above: Order Comment: Speci men Type: BLOOD SPECIMENOrdering Facility: [facility] Address: [address] [place] [address] Performed By: #### 5 8410-2 ####[facility] [id number] [place] [address] [place] Hemoglobin (Bld) [Mass/Vol] 10.9 g/dL Low 11.5-15.5 [facility] Comment on above: Order Comment: Speci men Type: BLOOD SPECIMENOrdering Facility: [facility] Address: [address] [place] [address] Performed By: #### 5 8410-2 ####[facility] LABIA [id number] [place] [address] [place] MCH (RBC) [Entitic mass] 26.8 pg Normal 26.0-34.0 [facility] Comment on above: Order Comment: Speci men Type: BLOOD SPECIMENOrdering Facility: [facility] Address: [address] [place] [address] Performed By: #### 5 8410-2 ####[facility] LABIA [id number] [place] [address] [place] MCHC (RBC) [Mass/Vol] 30.3 g/dL Low 30.5-36.0 [facility] Comment on above: Order Comment: Speci men Type: BLOOD SPECIMENOrdering Facility: [facility] Address: [address] [place] [address] Performed By: #### 5 8410-2 ####[facility]IA [id number] [place] [address] [place] MCV (RBC) [Entitic vol] 88.7 fL Normal 80.0-100.0 [facility] Comment on above: Order Comment: Speci men Type: BLOOD SPECIMENOrdering Facility: [facility] Address: [address] [place] [address] Performed By: #### 5 8410-2 ####[facility]IA [id number] [place] [address] [place] Nucleated RBC (Bld) [#/Vol] 10*3/uL Normal <0.01 [facility] Comment on above: Order Comment: Speci men Type: BLOOD SPECIMENOrdering Facility: [facility] Address: [address] [place] [address] Performed By: #### 5 8410-2 ####[facility] [id number] [place] [address] [place] Platelet mean volume (Bld) [Entitic vol] 11.9 fL Normal 9.0-12.7 [facility] Comment on above: Order Comment: Speci men Type: BLOOD SPECIMENOrdering Facility: [facility] Address: [address] [place] [address] Performed By: #### 5 8410-2 ####[facility]IA [id number] [place] [address] [place] Platelets (Bld) [#/Vol] 200 10*3/uL Normal 150-400 [facility] Comment on above: Order Comment: Speci men Type: BLOOD SPECIMENOrdering Facility: [facility] Address: [address] [place] [address] Performed By: #### 5 8410-2 ####[facility]IA [id number] [place] [address] [place] RBC (Bld) [#/Vol] 4.06 10*6/uL Normal 3.90-5.20 [facility] Comment on above: Order Comment: Speci men Type: BLOOD SPECIMENOrdering Facility: [facility] Address: [address] [place] [address] Performed By: #### 5 8410-2 ####[facility]IA [id number] [place] [address] [place] WBC (Bld) [#/Vol] 8.10 10*3/uL Normal 3.70-11.00 [facility] Comment on above: Order Comment: Speci men Type: BLOOD SPECIMENOrdering Facility: [facility] Address: [address] [place] [address] Performed By: #### 5 8410-2 ####[facility]CL[facility] [id number] [place] [address] [place] Comprehensive metabolic 2000 panelon 04-15-2024 Albumin [Mass/Vol] 4.1 g/dL Normal 3.9-4.9 [facility] Comment on above: Order Comment: Speci men Type: BLOOD SPECIMENOrdering Facility: [facility] Address: [address] [place] [address] Performed By: #### 2 4323-8, 66537-8 ####[facility]CL[facility] [id number] [place] [address] [place] ALP [Catalytic activity/Vol] 102 U/L Normal 34-123 [facility] Comment on above: Order Comment: Speci men Type: BLOOD SPECIMENOrdering Facility: [facility] Address: [address] [place] [address] Performed By: #### 2 4323-8, 56282-1 ####[facility]CL[facility] [id number] [place] [address] [place] ALT [Catalytic activity/Vol] 17 U/L Normal 7-38 [facility] Comment on above: Order Comment: Speci men Type: BLOOD SPECIMENOrdering Facility: [facility] Address: [address] [place] [address] Performed By: #### 2 4323-8, 32875-1 ####[facility] LABCLIA [id number] [place] [id number] [place] Anion gap [Moles/Vol] 15 mmol/L Normal 8-15 [facility] Comment on above: Order Comment: Speci men Type: BLOOD SPECIMENOrdering Facility: [facility] Address: [address] [place] [address] Performed By: #### 2 4323-8, 70437-8 ####[facility]CL[facility] [id number] [place] [address] [place] AST [Catalytic activity/Vol] 17 U/L Normal 13-35 [facility] Comment on above: Order Comment: Speci men Type: BLOOD SPECIMENOrdering Facility: [facility] Address: [address] [place] [address] Performed By: #### 2 4323-8, 07831-9 ####[facility]CL[facility] [id number] [place] [address] [place] Bilirubin [Mass/Vol] 0.6 mg/dL Normal 0.2-1.3 [facility] Comment on above: Order Comment: Speci men Type: BLOOD SPECIMENOrdering Facility: [facility] Address: [address] [place] [address] Performed By: #### 2 4323-8, 81936-2 ####[facility]IA [id number] [place] [address] [place] Calcium [Mass/Vol] 9.0 mg/dL Normal 8.5-10.2 [facility] Comment on above: Order Comment: Speci men Type: BLOOD SPECIMENOrdering Facility: [facility] Address: [address] [place] [address] Performed By: #### 2 4323-8, 29536-0 ####[facility]IA [id number] [place] [address] [place] Chloride [Moles/Vol] 104 mmol/L Normal 98-107 [facility] Comment on above: Order Comment: Speci men Type: BLOOD SPECIMENOrdering Facility: [facility] Address: [address] [place] [address] Performed By: #### 2 4323-8, 90202-2 ####[facility]CL[facility] [id number] [place] [address] [place] CO2 [Moles/Vol] 22 mmol/L Normal 22-30 [facility] Comment on above: Order Comment: Speci men Type: BLOOD SPECIMENOrdering Facility: [facility] Address: [address] [place] [address] Performed By: #### 2 4323-8, ####[facility]CL[facility] [id number] [address] [address] [place] Creatinine [Mass/Vol] 1.66 mg/dL High 0.58-0.96 [facility] Comment on above: Order Comment: Speci men Type: BLOOD SPECIMENOrdering Facility: [facility] Address: [address] [place] [address] Performed By: #### 2 4323-8, ####[facility]CL[facility] [id number] [place] [address] [place] Creatinine and Glomerular filtration rate.predicted panel (S/P/Bld) 32 mL/min/1.73m??? Low >=60 [facility] Comment on above: Order Comment: Speci men Type: BLOOD SPECIMENOrdering Facility: [facility] Address: [address] [place] [address] Result Comment: Kathrine mated Glomerular Filtration Rate [...] actual GFR. Performed By: #### 2 4323-8, ####[facility]CL[facility] [id number] [place] [id number] [place] Glucose [Mass/Vol] 228 mg/dL High 74-99 [facility] Comment on above: Order Comment: Speci men Type: BLOOD SPECIMENOrdering Facility: [facility] Address: [address] [place] [address] Result Comment: The [place] Diabetes Association (ADA) provides guidance for cutoff [...] Standards of Medical Care in Diabetes 2016, [place] [employer]. Diabetes Care. 2016.39(Suppl 1). Performed By: #### 2 4323-8, 07692-1 ####[facility] [id number] [place] [address] [place] Potassium [Moles/Vol] 4.8 mmol/L Normal 3.7-5.1 [facility] Comment on above: Order Comment: Speci men Type: BLOOD SPECIMENOrdering Facility: [facility] Address: [address] [place] [address] Performed By: #### 2 4323-8, 36434-9 ####[facility] [id number] [place] [address] [place] Protein [Mass/Vol] 7.2 g/dL Normal 6.3-8.0 [facility] Comment on above: Order Comment: Speci men Type: BLOOD SPECIMENOrdering Facility: [facility] Address: [address] [place] [address] Performed By: #### 2 4323-8, 36221-7 ####[facility] [id number] [place] [address] [place] Sodium [Moles/Vol] 141 mmol/L Normal 136-144 [facility] Comment on above: Order Comment: Speci men Type: BLOOD SPECIMENOrdering Facility: [facility] Address: [address] [place] [address] Performed By: #### 2 4323-8, 05701-8 ####[facility]CL[facility] [id number] [place] [address] [place] Urea nitrogen [Mass/Vol] 37 mg/dL High 7- [facility] Comment on above: Order Comment: Speci men Type: BLOOD SPECIMENOrdering Facility: [facility] Address: [address] [place] [address] Performed By: #### 2 4323-8, 82677-3 ####[facility]CL[facility] [id number] [place] [address] [place] HbA1c (Bld)on 04-15-2024 Average glucose Estimated from glycated hemoglobin (Bld) [Mass/Vol] 180 mg/dL Normal [facility] Comment on above: Order Comment: [facility] Type: BLOOD SPECIMENOrdering Facility: [facility] Address: [address] [place] [address] Result Comment: eAG: (Estimated average glucose) is a calculated value from HgbA1c and is veterans employment representative of the average blood glucose level in the last 2-3 month period. Performed By: #### 5 5454-3 ####[facility] [id number] [place] [address] [place] HbA1c (Bld) [Mass fraction] 7.9 % High 4.3-5.6 [facility] Comment on above: Order Comment: Speci men Type: BLOOD SPECIMENOrdering Facility: [facility] Address: [address] [place] [address] Result Comment: [place] Diabetes Association guidelines indicate that patients with HgbA1c in the range 5.7-6.4% are at increased risk for development of diabetes, and intervention by lifestyle modification may be beneficial. HgbA1c greater or equal to 6.5% is considered diagnostic of diabetes. Performed By: #### 5 5454-3 ####[facility] [id number] [place] [address] [place] Lipid 1996 panelon 4 Cholesterol [Mass/Vol] 131 mg/dL Normal <200 [facility] Comment on above: Order Comment: Speci men Type: BLOOD SPECIMENOrdering Facility: [facility] Address: [address] [place] [address] Result Comment: <200 mg/dL, Desirable 200-239 mg/dL, Borderline high >239 mg/dL, High Performed By: #### 2 4323-8, 38448-1 ####[facility]CL[facility] [id number] [address] Cholesterol in HDL [Mass/Vol] 34 mg/dL Low >39 [facility] Comment on above: Order Comment: Speci men Type: BLOOD SPECIMENOrdering Facility: [facility] Address: [address] [place] [address] Result Comment: 40-5 9 mg/dL, Acceptable >59 mg/dL, High: Negative risk factor for coronary heart disease <40 mg/dL, Low: Positive risk factor for coronary heart disease Performed By: #### 2 4323-8, 06052-9 ####[facility] [id number] [address] [place] [facility] Cholesterol in LDL [Mass/Vol] 68 mg/dL Normal <100 [facility] Comment on above: Order Comment: Speci men Type: BLOOD SPECIMENOrdering Facility: [facility] Address: [address] [place] [address] Result Comment: <100 mg/dL, Optimal 100-129 mg/dL, Near optimal/above optimal 130-159 mg/dL, Borderline high 160-189 mg/dL, High >189 mg/dL, Very high Secondary prevention optimal LDL Cholesterol levels are recommended to be < 70 mg/dL Performed By: #### 2 4323-8, 23566-9 ####[facility]CL[facility] [id number] [place] [id number] [place] Cholesterol in LDL/Cholesterol in HDL [Mass ratio] 2.00 {ratio} Normal <2.54 [facility] Comment on above: Order Comment: Maxim davies Type: BLOOD SPECIMENOrdering Facility: [facility] Address: [address] [place] [address] Result Comment: Ermias sheffield: 1. National Cholesterol Education Program ATP III Guideline At-A-Glance Quick Desk Reference: National Heart, Lung, and Blood [place]. National Institutes of Health. 2001: NIH Publication No. 01-3305. 2. An International Atherosclerosis Society position paper: global recommendations for the management of dyslipidemia: executive summary, Atherosclerosis. 2014: 232(2):410-413. Performed By: #### 2 4323-8, 99182-1 ####[facility] [id number] [place] [address] [place] Cholesterol in VLDL [Mass/Vol] 29 mg/dL Normal <30 [facility] Comment on above: Order Comment: Maxim davies Type: BLOOD SPECIMENOrdering Facility: [facility] Address: [address] [place] [address] Performed By: #### 2 4323-8, 21759-1 ####[facility] [id number] [place] [address] [place] Cholesterol non HDL [Mass/Vol] 97 mg/dL Normal <130 [facility] Comment on above: Order Comment: Maxim davies Type: BLOOD SPECIMENOrdering Facility: [facility] Address: [address] [place] [address] Result Comment: <130 mg/dL, Optimal 130-159 mg/dL, Near optimal/above optimal 160-189 mg/dL, Borderline high 190-219 mg/dL, High >219 mg/dL, Very high Secondary prevention optimal non HDL Cholesterol levels are recommended to be <100 mg/dL Performed By: #### 2 4323-8, 59804-7 ####[facility] [id number] [place] [address] [place] Cholesterol.total/Antonia sterol in HDL [Mass ratio] 3.85 {ratio} Normal <5.10 [facility] Comment on above: Order Comment: Speci men Type: BLOOD SPECIMENOrdering Facility: [facility] Address: [address] [place] [address] Performed By: #### 2 4323-8, 69795-7 ####[facility]CL[facility] [id number] [place] [address] [place] FASTING TIME 14 hrs Normal [facility] Comment on above: Order Comment: Speci men Type: BLOOD SPECIMENOrdering Facility: [facility] Address: [address] [place] [address] Performed By: #### 2 4323-8, 16729-9 ####[facility] [id number] [place] [address] [place] Triglyceride [Mass/Vol] 146 mg/dL Normal <150 [facility] Comment on above: Order Comment: Speci men Type: BLOOD SPECIMENOrdering Facility: [facility] Address: [address] [place] [address] Result Comment: <150 mg/dL, Normal 150-199 mg/dL, Borderline high 200-499 mg/dL, High >499 mg/dL, Very high Performed By: #### 2 4323-8, 11888-9 ####[facility] [id number] [place] [address] [place] CNOVon 04-10-2024 CNOV Office Visit (FAMPWS ) ROSA MYERS ([id number]) 1950 F Date Time Provider Department 04/10/24 6:00 PM [facility] During your visit today, we recorded the [...] taking ASA 81 mg daily. Follows with [facility]; had recent echo showing no change [...] 1 capsule by mouth once daily. Insulin [place], Disposable, (RELION PEN NEEDLES) 32 x 5/32 " ndle Use a (more content not included)... Normal [facility] CNPNon 04-04-2024 [facility] ([facility]) PALMAASADJosé Miguel Garrett ([id number]) 1950 F Date Time Provider Department 04/04/24 [facility] During your visit today, we recorded the following information about you: Maciel Busby APRN.CNP 04/04/2024 10:49 AM Signed STAMP Please reach out to patient for overdue appointment for chronic disease management with myself. If he/she is no longer following with Dr. James, please remove name from PCP field. Due for Medicare Wellness/Follow up, would need 40 minutes. Maciel Busby APRN.[facility] Allergies As of Date: 04/04/2024 Noted Allergy [...] capsule by mouth once daily. - Insulin [place], Disposable, (RELION PEN NEEDLES) 32 x 5/32 [...] kidney disease, stage 4 (severe) (HCC) *04/15/2023 halfway current use of insulin ([facility]) [Z79.4] 10/15/2023 Heart failure, unspecified ([facility]) [I50.9] 04/15/2023 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*04/15/2023 Encounter Status:Closed by [facility] 04/04/24 [facility] Basophil percentageOrdered B y: Carmela Funk on 06-25-2023 Chloride [Moles/Vol] 106 mmol/L 98-107 [facility] Glucose [Mass/Vol] 119 mg/dL 74-106 [facility] Comment on above: Fasting Glucose resu lt from 100 to 125 mg/dL suggests IMPAIRED HOMEOSTASIS per A.D.A. criteria. Potassium [Moles/Vol] 3.7 mmol/L 3.5-5.1 [facility] Sodium [Moles/Vol] 139 mmol/L 136-145 [facility] Laboratory - Chemistry and C hemistry - challengeOrdered By: Carmela Funk on 06-25-2023 CO2 [Moles/Vol] 29.0 mmol/L 21.0-32.0 [facility] Urea nitrogen/Creatinine [Mass ratio] 17.5 mg/mg 10-20 [facility] No Panel InformationOrdered By: Carmela Funk on 06-25-2023 Estimated GFR (MDRD) Amer 31 mL/min >60 [facility] Comment on above: GFR Calc Estimated GFR (MDRD) Non-Af Amer 26 mL/min >60 [facility] Comment on above: Non- GFR Calc Serum or plasma calcium kayleigh urement (mass/volume)Ordered By: Carmela Funk on 06-25-2023 Calcium [Mass/Vol] 9.0 mg/dL 8.5-10.1 [facility] Serum or plasma creatinine m easurement (mass/volume)Ordered By: Carmela Funk on 06-25-2023 Creatinine [Mass/Vol] 2.00 mg/dL 0.55-1.02 [facility] Comment on above: The validity of the calculated GFR & GFRAA in patients over 70 years has not been determined. Clinical correlation is essential. Serum or plasma urea nitroge n measurement (mass/volume)Ordered By: Carmela Funk on 06-25-2023 Urea nitrogen [Mass/Vol] 35 mg/dL 7-18 [facility] Thin prep Papanicolaou smear with manual screeningOrdered By: Carmela Funk on 06-25-2023 Thin prep Papanicolaou smear with manual screening 4 5-15 [facility] Absolute lymphocyte countOrd ered By: Carmela Funk on 06-17-2023 Lymphocytes Auto (Unsp spec) [#/Vol] 1.21 10*3/uL 0.83-4.51 [facility] Basophil percentageOrdered B y: Carmela Funk on 06-17-2023 Basophils/100 WBC (Bld) 1.1 % 0-1 [facility] Chloride [Moles/Vol] 106 mmol/L 98-107 [facility] Eosinophils/100 WBC (Bld) 1.8 % 0-5 [facility] Glucose [Mass/Vol] 108 mg/dL 74-106 [facility] Comment on above: Fasting Glucose resu lt from 100 to 125 mg/dL suggests IMPAIRED HOMEOSTASIS per A.D.A. criteria. Neutrophils (Bld) [#/Vol] 3.5 10*3/uL 2.0-7.7 [facility] Neutrophils/100 WBC (Bld) 63.6 % 47-70 [facility] Potassium [Moles/Vol] 4.2 mmol/L 3.5-5.1 [facility] Sodium [Moles/Vol] 140 mmol/L 136-145 [facility] WBC (Bld) [#/Vol] 5.5 10*3/uL 4.4-11.0 [facility] Blood erythrocytes count (nu mber/volume)Ordered By: Carmela Funk on 06-17-2023 RBC (Bld) [#/Vol] 3.70 10*6/uL 4.2-5.4 [facility] Blood hemoglobin measurement (mass/volume)Ordered By: Carmela Funk on 06-17-2023 Hemoglobin (Bld) [Mass/Vol] 9.7 g/dL 12.0-15.0 [facility] Blood lymphocytes/100 leukoc ytesOrdered By: Carmela Funk on 06-17-2023 Lymphocytes/100 WBC (Bld) 22.1 % 19-41 [facility] Blood monocytes/100 leukocyt esOrdered By: Carmela Funk on 06-17-2023 Monocytes/100 WBC (Bld) 11.2 % 0-10 [facility] Blood platelet mean volumeOr dered By: Carmela Funk on 06-17-2023 Platelet mean volume (Bld) [Entitic vol] 10.6 fL 6.2-12.0 [facility] Determination of erythrocyte mean corpuscular volume (MCV)Ordered By: Carmela Funk on 06-17-2023 MCV (RBC) [Entitic vol] 86.8 fL 81-99 [facility] Hematocrit Auto (Bld) [Volum e fraction]Ordered By: Carmela Funk on 06-17-2023 Hematocrit (Bld) [Volume fraction] 32.1 % 37-47 [facility] Laboratory - Chemistry and C hemistry - challengeOrdered By: Carmela Funk on 06-17-2023 CO2 [Moles/Vol] 29.0 mmol/L 21.0-32.0 [facility] Natriuretic peptide B (Bld) [Mass/Vol] 281.8 pg/mL 0-100 [facility] Urea nitrogen/Creatinine [Mass ratio] 14.5 mg/mg 10-20 [facility] Laboratory - Hematology and Cell countsOrdered By: Carmela Funk on 06-17-2023 Erythrocyte distribution width (RBC) [Entitic vol] 49.9 fL 35.1-43.9 [facility] Erythrocyte distribution width (RBC) [Ratio] 15.6 % 11.6-14.6 [facility] Immature granulocytes/100 WBC (Bld) 0.200 % 0.0-0.9 [facility] Comment on above: IG% - Immature Granu locytes (promyelocytes, myelocytes and metamyelocytes) > 1% indicates that a LEFT SHIFT is Present. MCH (RBC) [Entitic mass] 26.2 pg 27.0-32.0 [facility] Nucleated RBC/100 WBC (Bld) [Ratio] 0 % 0-5 [facility] MCHC Auto (RBC) [Mass/Vol]Or dered By: Carmela Funk on 06-17-2023 MCHC (RBC) [Mass/Vol] 30.2 g/dL 32-36 [facility] No Panel InformationOrdered By: Carmela Funk on 06-17-2023 Estimated GFR (MDRD) Amer 34 mL/min >60 [facility] Comment on above: GFR Calc Estimated GFR (MDRD) Non-Af Amer 28 mL/min >60 [facility] Comment on above: Non- GFR Calc Thyroid Stimulating Hormone (TSH) 4.15 uIU/mL 0.358-3.74 [facility] Platelets bldOrdered By: Maco Funk on 06-17-2023 Platelets (Bld) [#/Vol] 280 10*3/uL 150-450 [facility] Serum or plasma calcium kayleigh urement (mass/volume)Ordered By: Carmela Funk on 06-17-2023 Calcium [Mass/Vol] 9.0 mg/dL 8.5-10.1 [facility] Serum or plasma creatinine m easurement (mass/volume)Ordered By: Carmela Funk on 06-17-2023 Creatinine [Mass/Vol] 1.86 mg/dL 0.55-1.02 [facility] Comment on above: The validity of the calculated GFR & GFRAA in patients over 70 years has not been determined. Clinical correlation is essential. Serum or plasma urea nitroge n measurement (mass/volume)Ordered By: Carmela Funk on 06-17-2023 Urea nitrogen [Mass/Vol] 27 mg/dL 7-18 [facility] Thin prep Papanicolaou smear with manual screeningOrdered By: Carmela Funk on 06-17-2023 Thin prep Papanicolaou smear with manual screening 5 5-15 [facility] Absolute lymphocyte counton 06-03-2022 Lymphocytes Auto (Unsp spec) [#/Vol] 1.04 10*3/uL 0.83-4.51 [facility] Work Phone: Basophil percentageon 2021 Basophils/100 WBC (Bld) 0.8 % 0-1 [facility] Work Phone: Chloride [Moles/Vol] 108 mmol/L 98-107 [facility] Work Phone: Eosinophils/100 WBC (Bld) 1.1 % 0-5 [facility] Work Phone: Glucose [Mass/Vol] 217 mg/dL 74-106 [facility] Work Phone: Comment on above: Glucose result great er than or equal to 200 mg/dLsuggests DIABETES MELLITUS per A.D.A. criteria. Neutrophils (Bld) [#/Vol] 6.4 10*3/uL 2.0-7.7 [facility] Work Phone: Neutrophils/100 WBC (Bld) 78.2 % 47-70 [facility] Work Phone: Potassium [Moles/Vol] 5.3 mmol/L 3.5-5.1 [facility] Work Phone: Sodium [Moles/Vol] 136 mmol/L 136-145 [facility] Work Phone: WBC (Bld) [#/Vol] 8.2 10*3/uL 4.4-11.0 [facility] Work Phone: Blood erythrocytes count (nu mber/volume)on 06-03-2022 RBC (Bld) [#/Vol] 3.88 10*6/uL 4.2-5.[address] [facility] Work [facility]: Blood hemoglobin measurement (mass/volume)on 06-03-2022 Hemoglobin (Bld) [Mass/Vol] 9.7 g/dL 12.0-15.0 [facility] Work Phone: Blood lymphocytes/100 leukoc yteson 06-03-2022 Lymphocytes/100 WBC (Bld) 12.6 % 19-41 [facility] Work Phone: Blood monocytes/100 leukocyt eson 06-03-2022 Monocytes/100 WBC (Bld) 6.9 % 0-10 [facility] Work Phone: [phone] Blood platelet mean volumeon 06-03-2022 Platelet mean volume (Bld) [Entitic vol] 10.1 fL 6.2-12.0 [facility] Work Phone: [phone] Determination of erythrocyte mean corpuscular volume (MCV)on 06-03-2022 MCV (RBC) [Entitic vol] 81.7 fL 81-99 [facility] Work Phone: [phone] Hematocrit Auto (Bld) [Volum e fraction]on 06-03-2022 Hematocrit (Bld) [Volume fraction] 31.7 % 37-47 [facility] Work Phone: [phone] Laboratory - Chemistry and C hemistry - challengeon 06-03-2022 CO2 [Moles/Vol] 22.0 mmol/L 21.0-32.0 [facility] Work Phone: [phone] Urea nitrogen/Creatinine [Mass ratio] 19.4 mg/mg 10-20 [facility] Work Phone: [phone] Laboratory - Hematology and Cell countson 06-03-2022 Erythrocyte distribution width (RBC) [Entitic vol] 49.9 fL 35.1-43.9 [facility] Work Phone: [phone] Erythrocyte distribution width (RBC) [Ratio] 16.7 % 11.6-14.6 [facility] Work Phone: [phone] Immature granulocytes/100 WBC (Bld) 0.400 % 0.0-0.9 [facility] Work Phone: [phone] Comment on above: IG% - Immature Granu locytes (promyelocytes, myelocytes and metamyelocytes) > 1% indicates that a LEFT SHIFT is Present. MCH (RBC) [Entitic mass] 25.0 pg 27.0-32.0 [facility] Work Phone: [phone] Nucleated RBC/100 WBC (Bld) [Ratio] 0 % 0-5 [facility] Work Phone: [phone] MCHC Auto (RBC) [Mass/Vol]on 06-03-2022 MCHC (RBC) [Mass/Vol] 30.6 g/dL 32-36 [facility]: No Panel Informationon 06-03 Estimated GFR (MDRD) Amer 26 mL/min >60 [facility] Work Phone: Comment on above: GFR Calc Estimated GFR (MDRD) Non-Af Amer 21 mL/min >60 [facility] Work Phone: Comment on above: Non- GFR Calc Platelets bldon 06-03-2022 Platelets (Bld) [#/Vol] 231 10*3/uL 150-450 [facility] Work Phone: Serum or plasma calcium kayleigh urement (mass/volume)on 06-03-2022 Calcium [Mass/Vol] 9.0 mg/dL 8.5-10.1 [facility] Work Phone: Serum or plasma creatinine m easurement (mass/volume)on 06-03-2022 Creatinine [Mass/Vol] 2.37 mg/dL 0.55-1.02 [facility] Work Phone: Comment on above: The validity of the calculated GFR & GFRAA in patients over 70 years has not been determined. Clinical correlation is essential. Serum or plasma urea nitroge n measurement (mass/volume)on 06-03-2022 Urea nitrogen [Mass/Vol] 46 mg/dL 7-18 [facility] Work Phone: Thin prep Papanicolaou smear with manual screeningon 06-03-2022 Thin prep Papanicolaou smear with manual screening 6 5-15 [facility] Work Phone: Basophil percentageon 2021 Chloride [Moles/Vol] 103 mmol/L 98-107 [facility] Work Phone: Glucose [Mass/Vol] 198 mg/dL 74-106 [facility] Work Phone: Comment on above: Fasting Glucose resu lt greater than or equal to 126 mg/dL suggests DIABETES MELLITUS per A.D.A. criteria. Potassium [Moles/Vol] 4.5 mmol/L 3.5-5.1 [facility] Work Phone: Sodium [Moles/Vol] 139 mmol/L 136-145 [facility] Work Phone: [phone] WBC (Bld) [#/Vol] 6.6 10*3/uL 4.4-11.0 [facility] Work Phone: Blood erythrocytes count (nu mber/volume)on 03-02-2022 RBC (Bld) [#/Vol] 3.28 10*6/uL 4.2-5.[address] [facility] [facility] Work Phone: Blood hemoglobin measurement (mass/volume)on 03-02-2022 Hemoglobin (Bld) [Mass/Vol] 8.2 g/dL 12.0-15.0 [facility] Work Phone: [phone] Blood platelet mean volumeon 03-02-2022 Platelet mean volume (Bld) [Entitic vol] 10.8 fL 6.2-12.0 [facility] Work Phone: Determination of erythrocyte mean corpuscular volume (MCV)on 03-02-2022 MCV (RBC) [Entitic vol] 85.1 fL 81-99 [facility] Work Phone: Hematocrit Auto (Bld) [Volum e fraction]on 03-02-2022 Hematocrit (Bld) [Volume fraction] 27.9 % 37-47 [facility] Work Phone: Laboratory - Chemistry and C hemistry - challengeon 03-02-2022 CO2 [Moles/Vol] 30.0 mmol/L 21.0-32.0 [facility] Work Phone: Urea nitrogen/Creatinine [Mass ratio] 25.0 mg/mg 10-20 [facility] Work Phone: [phone] Laboratory - Hematology and Cell countson 03-02-2022 Erythrocyte distribution width (RBC) [Entitic vol] 49.0 fL 35.1-43.9 [facility] Work Phone: [phone] Erythrocyte distribution width (RBC) [Ratio] 15.8 % 11.6-14.6 [facility] Work Phone: MCH (RBC) [Entitic mass] 25.0 pg 27.0-32.0 [facility] Work Phone: MCHC Auto (RBC) [Mass/Vol]on 03-02-2022 MCHC (RBC) [Mass/Vol] 29.4 g/dL 32-36 [facility] Work Phone: No Panel Informationon 03-02 Estimated GFR (MDRD) Amer 35 mL/min >60 [facility] Work Phone: Comment on above: GFR Calc Estimated GFR (MDRD) Non-Af Amer 29 mL/min >60 [facility] Work Phone: Comment on above: Non- GFR Calc Platelets bldon 03-02-2022 Platelets (Bld) [#/Vol] 196 10*3/uL 150-450 [facility] Work Phone: Serum or plasma calcium kayleigh urement (mass/volume)on 03-02-2022 Calcium [Mass/Vol] 8.5 mg/dL 8.5-10.1 [facility] Work Phone: Serum or plasma creatinine m easurement (mass/volume)on 03-02-2022 Creatinine [Mass/Vol] 1.80 mg/dL 0.55-1.02 [facility] Work Phone: Comment on above: The validity of the calculated GFR & GFRAA in patients over 70 years has not been determined. Clinical correlation is essential. Serum or plasma urea nitroge n measurement (mass/volume)on 03-02-2022 Urea nitrogen [Mass/Vol] 45 mg/dL 7-18 [facility] Work Phone: Thin prep Papanicolaou smear with manual screeningon 03-02-2022 Thin prep Papanicolaou smear with manual screening 6 5-15 [facility] Work Phone: Absolute lymphocyte counton 02-26-2022 Lymphocytes Auto (Unsp spec) [#/Vol] 0.89 10*3/uL 0.83-4.51 [facility] Work Phone: Basophil percentageon 2021 Basophils/100 WBC (Bld) 0.7 % 0-1 [facility] Work Phone: Chloride [Moles/Vol] 103 mmol/L 98-107 [facility] Work Phone: Eosinophils/100 WBC (Bld) 1.8 % 0-5 [facility] Work Phone: Glucose [Mass/Vol] 254 mg/dL 74-106 [facility] Work Phone: Comment on above: Glucose result great er than or equal to 200 mg/dLsuggests DIABETES MELLITUS per A.D.A. criteria. Neutrophils (Bld) [#/Vol] 5.6 10*3/uL 2.0-7.7 [facility] Work Phone: Neutrophils/100 WBC (Bld) 75.1 % 47-70 [facility] Work Phone: Potassium [Moles/Vol] 5.1 mmol/L 3.5-5.1 [facility] Work Phone: Sodium [Moles/Vol] 136 mmol/L 136-145 [facility] Work Phone: WBC (Bld) [#/Vol] 7.4 10*3/uL 4.4-11.0 [facility] Work Phone: Blood erythrocytes count (nu mber/volume)on 02-26-2022 RBC (Bld) [#/Vol] 3.31 10*6/uL 4.2-5.4 [facility] Work Phone: Blood hemoglobin measurement (mass/volume)on 02-26-2022 Hemoglobin (Bld) [Mass/Vol] 8.4 g/dL 12.0-15.0 [facility] Work Phone: Blood lymphocytes/100 leukoc yteson 02-26-2022 Lymphocytes/100 WBC (Bld) 12.0 % 19-41 [facility] Work Phone: Blood monocytes/100 leukocyt eson 02-26-2022 Monocytes/100 WBC (Bld) 10.0 % 0-10 [facility] Work Phone: [phone] Blood platelet mean volumeon 02-26-2022 Platelet mean volume (Bld) [Entitic vol] 10.8 fL 6.2-12.0 [facility] Work Phone: [phone] Determination of erythrocyte mean corpuscular volume (MCV)on 02-26-2022 MCV (RBC) [Entitic vol] 85.8 fL 81-99 [facility] Work Phone: [phone] Glucose Glucometer (BldC) [M ass/Vol]on 02-26-2022 Glucose [Mass/Vol] 343 mg/dL 74-106 [facility] Work Phone: [phone] Comment on above: MANAGEMENT OF PATIEN T CARE PER NURSING PROTOCOL Hematocrit Auto (Bld) [Volum e fraction]on 02-26-2022 Hematocrit (Bld) [Volume fraction] 28.4 % 37-47 [facility] Work Phone: Laboratory - Chemistry and C hemistry - challengeon 02-26-2022 CO2 [Moles/Vol] 27.0 mmol/L 21.0-32.0 [facility] Work Phone: [phone] Urea nitrogen/Creatinine [Mass ratio] 23.6 mg/mg 10-20 [facility] Work Phone: [phone] Laboratory - Hematology and Cell countson 02-26-2022 Erythrocyte distribution width (RBC) [Entitic vol] 48.4 fL 35.1-43.9 [facility] Work Phone: [phone] Erythrocyte distribution width (RBC) [Ratio] 15.5 % 11.6-14.6 [facility] Work Phone: [phone] Immature granulocytes/100 WBC (Bld) 0.400 % 0.0-0.9 [facility] Work Phone: [phone] Comment on above: IG% - Immature Granu locytes (promyelocytes, myelocytes and metamyelocytes) > 1% indicates that a LEFT SHIFT is Present. MCH (RBC) [Entitic mass] 25.4 pg 27.0-32.0 [facility] Work Phone: Nucleated RBC/100 WBC (Bld) [Ratio] 0 % 0-5 [facility] Work Phone: MCHC Auto (RBC) [Mass/Vol]on 02-26-2022 MCHC (RBC) [Mass/Vol] 29.6 g/dL 32-36 [facility] Work Phone: No Panel Informationon 02-26 Estimated Creatinine Clearance Calc 19.35 ml/min [facility] Work Phone: [phone] Estimated GFR (MDRD) Amer 26 mL/min >60 [facility] Work Phone: Comment on above: GFR Calc Estimated GFR (MDRD) Non-Af Amer 22 mL/min >60 [facility] Work Phone: Comment on above: Non- GFR Calc Platelets bldon 02-26-2022 Platelets (Bld) [#/Vol] 219 10*3/uL 150-450 [facility] Work Phone: Serum or plasma calcium kayleigh urement (mass/volume)on 02-26-2022 Calcium [Mass/Vol] 8.5 mg/dL 8.5-10.1 [facility] Work Phone: [phone] Serum or plasma creatinine m easurement (mass/volume)on 02-26-2022 Creatinine [Mass/Vol] 2.33 mg/dL 0.55-1.02 [facility] Work Phone: Comment on above: The validity of the calculated GFR & GFRAA in patients over 70 years has not been determined. Clinical correlation is essential. Serum or plasma urea nitroge n measurement (mass/volume)on 02-26-2022 Urea nitrogen [Mass/Vol] 55 mg/dL 7-18 [facility] Work Phone: Thin prep Papanicolaou smear with manual screeningon 02-26-2022 Thin prep Papanicolaou smear with manual screening 6 5-15 [facility] Work Phone: Basophil percentageon 2021 Basophil percentage 4.5 mg/dL 2.5-4.9 [facility] Work Phone: [phone] Laboratory - Chemistry and C hemistry - challengeon 02-25-2022 Magnesium [Mass/Vol] 2.7 mg/dL 1.6-2.6 [facility] Work Phone: [phone] Basophil percentageon 2021 Bilirubin [Mass/Vol] 1.00 mg/dL 0.20-1.00 [facility] Work Phone: Comment on above: For patients on eltr ombopag therapy, use of Dimension Correll TBIL is not recommended. Protein [Mass/Vol] 6.1 g/dL 6.4-8.2 [facility] Work Phone: Laboratory - Chemistry and C hemistry - challengeon 02-24-2022 ALP [Catalytic activity/Vol] 66 U/L 45-117 [facility] Work Phone: [phone] ALT [Catalytic activity/Vol] 15 U/L 13-56 [facility] Work Phone: [phone] Globulin (S) [Mass/Vol] 3.3 g/dL 2.2-4.2 [facility] Work Phone: [phone] Serum or plasma albumin kayleigh urement (mass/volume)on 02-24-2022 Albumin [Mass/Vol] 2.8 g/dL 3.2-5.0 [facility] Work Phone: Serum or plasma albumin/glob ulin mass ratioon 02-24-2022 Albumin/Globulin [Mass ratio] 0.8 {ratio} 0.9-2.4 [facility] Work Phone: [phone] Thin prep Papanicolaou smear with manual screeningon 02-24-2022 Thin prep Papanicolaou smear with manual screening 11 U/L 15-37 [facility] Work Phone: [phone] INR in Blood by Coagulation assayon 02-23-2022 INR Coag (Bld) [Relative time] 1.3 {INR} [facility] Work Phone: Laboratory - Coagulationon 0 02-23-2022 PT Coag (PPP) [Time] 16.1 s 11.7-14.9 [facility] Work Phone: Absolute lymphocyte counton 02-22-2022 Lymphocytes Auto (Unsp spec) [#/Vol] 1.12 10*3/uL 0.83-4.51 [facility] Work Phone: Basophil percentageon 2021 Basophils/100 WBC (Bld) 0.7 % 0-1 [facility] Work Phone: Chloride [Moles/Vol] 107 mmol/L 98-107 [facility] Work Phone: Eosinophils/100 WBC (Bld) 1.6 % 0-5 [facility] Work Phone: Glucose [Mass/Vol] 371 mg/dL 74-106 [facility] Work Phone: Comment on above: Glucose result great er than or equal to 200 mg/dLsuggests DIABETES MELLITUS per A.D.A. criteria. Neutrophils (Bld) [#/Vol] 6.4 10*3/uL 2.0-7.7 [facility] Work Phone: Neutrophils/100 WBC (Bld) 75.1 % 47-70 [facility] Work Phone: Potassium [Moles/Vol] 4.7 mmol/L 3.5-5.1 [facility] Work Phone: Sodium [Moles/Vol] 139 mmol/L 136-145 [facility] Work Phone: WBC (Bld) [#/Vol] 8.5 10*3/uL 4.4-11.0 [facility] Work Phone: Blood erythrocytes count (nu mber/volume)on 02-22-2022 RBC (Bld) [#/Vol] 3.16 10*6/uL 4.2-5.4 [facility] Work Phone: Blood hemoglobin measurement (mass/volume)on 02-22-2022 Hemoglobin (Bld) [Mass/Vol] 7.7 g/dL 12.0-15.0 [facility] Work Phone: Blood lymphocytes/100 leukoc yteson 02-22-2022 Lymphocytes/100 WBC (Bld) 13.2 % 19-41 [facility] Work Phone: [phone] Blood monocytes/100 leukocyt eson 02-22-2022 Monocytes/100 WBC (Bld) 8.6 % 0-10 [facility] Work Phone: Blood platelet mean volumeon 02-22-2022 Platelet mean volume (Bld) [Entitic vol] 10.5 fL 6.2-12.0 [facility] Work Phone: Determination of erythrocyte mean corpuscular volume (MCV)on 02-22-2022 MCV (RBC) [Entitic vol] 85.4 fL 81-99 [facility] Work Phone: Hematocrit Auto (Bld) [Volum e fraction]on 02-22-2022 Hematocrit (Bld) [Volume fraction] 27.0 % 37-47 [facility] Work Phone: Laboratory - Chemistry and C hemistry - challengeon 02-22-2022 CO2 [Moles/Vol] 21.0 mmol/L 21.0-32.0 [facility] Work Phone: Natriuretic peptide B (Bld) [Mass/Vol] 595.4 pg/mL 0-100 [facility] Work Phone: Urea nitrogen/Creatinine [Mass ratio] 15.5 mg/mg 10-20 [facility] Work Phone: Laboratory - Hematology and Cell countson 02-22-2022 Erythrocyte distribution width (RBC) [Entitic vol] 46.9 fL 35.1-43.9 [facility] Work Phone: [phone] Erythrocyte distribution width (RBC) [Ratio] 15.2 % 11.6-14.6 [facility] Work Phone: [phone] Immature granulocytes/100 WBC (Bld) 0.800 % 0.0-0.9 [facility] Work Phone: [phone] Comment on above: IG% - Immature Granu locytes (promyelocytes, myelocytes and metamyelocytes) > 1% indicates that a LEFT SHIFT is Present. MCH (RBC) [Entitic mass] 24.4 pg 27.0-32.0 [facility] Work Phone: Nucleated RBC/100 WBC (Bld) [Ratio] 0 % 0-5 [facility] Work Phone: [phone] Lower GI hemoglobin IA Ql (S tl)on 02-22-2022 Stool Occult Blood (TREVOR) Positive [facility] Work Phone: [phone] MCHC Auto (RBC) [Mass/Vol]on 02-22-2022 MCHC (RBC) [Mass/Vol] 28.5 g/dL 32-36 [facility] Work Phone: No Panel Informationon 02-22 Troponin I High Sensitivity 64 pg/mL 3.0-54.0 [facility] Work Phone: Comment on above: Please Note: New Yvrose t Units and Gender Specific Reference Ranges. For more information see Policy Stat Procedure Correll High Sensitivity Troponin (TNIH) and attachments. SARS-CoV-2 & FLU Antigen (Rapid) [facility] Work Phone: D-Dimer Quantitative (PE/DVT) 0.83 FEU/ug/m 0.27-0.49 [facility] Work Phone: Comment on above: D-Dimer ELEVATED (>0 .49): Additional studies and clinicalassessments are indicated to conclude diagnosis of:Deep Vein Thrombosis (DVT) or Pulmonary Embolism (PE)CRITICAL VALUE VERIFIED. CALLED TO PALMA SANHCEZ02/22/22 0905 Kylie Fernandez.RESULTS READ BACK BY SAME . Estimated Creatinine Clearance Calc 23.24 ml/min [facility] Work Phone: Estimated GFR (MDRD) Amer 32 mL/min >60 [facility] Work Phone: Comment on above: GFR Calc Estimated GFR (MDRD) Non-Af Amer 27 mL/min >60 [facility] Work Phone: Comment on above: Non- GFR Calc Troponin I High Sensitivity 14 pg/mL 3.0-54.0 [facility] Work Phone: Comment on above: Please Note: New Yvrose t Units and Gender Specific Reference Ranges. For more information see Policy Stat Procedure Correll High Sensitivity Troponin (TNIH) and attachments. Thyroid Stimulating Hormone (TSH) 5.15 uIU/mL 0.358-3.74 [facility] Work Phone: Platelets bldon 02-22-2022 Platelets (Bld) [#/Vol] 319 10*3/uL 150-450 [facility] Work Phone: Serum or plasma calcium kayleihg urement (mass/volume)on 02-22-2022 Calcium [Mass/Vol] 9.0 mg/dL 8.5-10.1 [facility] Work Phone: Serum or plasma creatinine m easurement (mass/volume)on 02-22-2022 Creatinine [Mass/Vol] 1.94 mg/dL 0.55-1.02 [facility] Work Phone: Comment on above: The validity of the calculated GFR & GFRAA in patients over 70 years has not been determined. Clinical correlation is essential. Serum or plasma urea nitroge n measurement (mass/volume)on 02-22-2022 Urea nitrogen [Mass/Vol] 30 mg/dL 7-18 [facility] Work Phone: [phone] Thin prep Papanicolaou smear with manual screeningon 02-22-2022 Thin prep Papanicolaou smear with manual screening 11 5-15 [facility] Work Phone: [phone] Whole blood hemoglobin A1c/t otal hemoglobin ratio (mass fraction)on 02-22-2022 HbA1c (Bld) [Mass fraction] 8.2 % 3.8-5.6 [facility] Work Phone: Comment on above: Normal < 5.7 % Predi abetic 5.7 - 6.4 % Diabetic >or= 6.5 % Please note range changes. Laboratory - Microbiology an d Antimicrobial susceptibility Bacteria identified Cx Nom (Bld) No growth in 5 days. [facility] Work Phone: Lower GI hemoglobin IA Ql (S tl) Stool Occult Blood (TREVOR) Positive [facility] Work Phone: Vital Signs Date Time Vital Sign Value Performing Clinician Facility 07-06-2025 17:27-0400 Diastolic blood pressure 89 mm[Hg] Leyda Lyon DO Work Phone: [facility] [employer] 07-06-2025 17:27-0400 SaO2% (BldA) [Mass fraction] 100 % Leyda Lyon DO Work Phone: [facility] [employer] 07-06-2025 17:27-0400 Systolic blood pressure 116 mm[Hg] Leyda Lyon DO Work Phone: [facility] [employer] 07-06-2025 16:26-0400 Heart rate 70 /min Leyda Lyon DO Work Phone: [facility] [employer] 07-06-2025 16:26-0400 Respiratory rate 17 /min Leyda Lyon DO Work Phone: [facility] [employer] 07-06-2025 12:00-0400 Body temperature 97.59 [degF] Leyda Lyon DO Work Phone: [facility] [employer] 07-05-2025 09:00-0400 Body mass index (BMI) [Ratio] 38.67 kg/m2 Leyda Lyon DO Work Phone: [facility] [employer] 07-05-2025 09:00-0400 Body weight 105.4 kg Leyda Lyon DO Work Phone: [facility] [employer] 07-05-2025 07:04-0400 Body height 165.1 cm Leyda Lyon DO Work Phone: [facility] [employer] 07-04-2025 15:05-0400 Diastolic blood pressure 70 mm[Hg] Ach 1 [facility] [employer] 07-04-2025 15:05-0400 Heart rate 63 /min Ach 1 [facility] [employer] 07-04-2025 15:05-0400 Respiratory rate 16 /min Ach 1 [facility] [employer] 07-04-2025 15:05-0400 SaO2% (BldA) [Mass fraction] 100 % Ach 1 [facility] [employer] 07-04-2025 15:05-0400 Systolic blood pressure 129 mm[Hg] Ach 1 [facility] [employer] 07-03-2025 22:48-0400 Heart rate 76 /min Gerardo Felder MD Work Phone: [facility] [employer] 07-03-2025 22:48-0400 Respiratory rate 16 /min Gerardo Felder MD Work Phone: [facility] [employer] 07-03-2025 22:48-0400 SaO2% (BldA) [Mass fraction] 100 % Gerardo Felder MD Work Phone: [facility] [employer] 07-03-2025 20:34-0400 Diastolic blood pressure 80 mm[Hg] Gerardo Felder MD Work Phone: [facility] [employer] 07-03-2025 20:34-0400 Systolic blood pressure 126 mm[Hg] Gerardo Felder MD Work Phone: [facility] [employer] 07-03-2025 13:39-0400 Body height 165.1 cm Gerardo Felder MD Work Phone: [facility] [employer] 07-03-2025 13:39-0400 Body mass index (BMI) [Ratio] 39.54 kg/m2 Gerardo Felder MD Work Phone: [facility] 07-03-2025 13:39-0400 Body temperature 98.2 [degF] Gerardo Felder MD Work Phone: [facility] [employer] 07-03-2025 13:39-0400 Body weight 107.78 kg Gerardo Felder MD Work Phone: [facility] [employer] 07-02-2025 19:00-0400 Diastolic blood pressure 53 mm[Hg] Klever Verokola DO Work Phone: [facility] [employer] 07-02-2025 19:00-0400 Heart rate 67 /min Klever Mudrakola DO Work Phone: [facility] Development 07-02-2025 19:00-0400 Respiratory rate 19 /min Klever Verokola DO Work Phone: [employer] 07-02-2025 19:00-0400 SaO2% (BldA) [Mass fraction] 100 % Klever Verokola DO Work Phone: [facility] [employer] 07-02-2025 19:00-0400 Systolic blood pressure 112 mm[Hg] Klever Verokola DO Work Phone: [facility] [employer] 07-02-2025 16:29-0400 Body temperature 97.39 [degF] Klever Ramosla DO Work Phone: [facility] [employer] 06-21-2025 16:49-0400 Diastolic blood pressure 67 mm[Hg] Omid Orona MD Work Phone: [facility] [employer] 06-21-2025 16:49-0400 Heart rate 52 /min Omid Orona MD Work Phone: [facility] [employer] 06-21-2025 16:49-0400 SaO2% (BldA) [Mass fraction] 100 % Omid Orona MD Work Phone: [facility] [employer] 06-21-2025 16:49-0400 Systolic blood pressure 151 mm[Hg] Omid Orona MD Work Phone: [facility] [employer] 06-21-2025 12:52-0400 Respiratory rate 20 /min Omid Orona MD Work Phone: [facility] [employer] 06-21-2025 08:18-0400 Body temperature 97.81 [degF] Omid Orona MD Work Phone: [employer] 06-20-2025 11:40-0400 Body height 165.1 cm Omid Orona MD Work Phone: [facility] [employer] 06-11-2025 12:00-0400 Body mass index (BMI) [Ratio] 38.12 kg/m2 Omid Orona MD Work Phone: [facility] [employer] 06-11-2025 12:00-0400 Body weight 103.9 kg Omid Orona MD Work Phone: [facility] 02-12-2025 08:00-0400 Diastolic blood pressure 40 mm[Hg] Dr. Amado James MD Work Phone: 3(368)480-667695 [place] [address] 02-12-2025 08:00-0400 Heart rate 68 /min Dr. Amado James MD Work Phone: 3(115)315-282195 [place] [address] 02-12-2025 08:00-0400 Inhaled oxygen concentration 35 % Dr. Amado James MD Work Phone: 9(875)749-368995 [place] [address] 02-12-2025 08:00-0400 Respiratory rate 14 /min Dr. Amado James MD Work Phone: 7(394)475-532595 [place] [address] 02-12-2025 08:00-0400 SaO2% (BldA) [Mass fraction] 94 % Dr. Amado James MD Work Phone: 9(143)695-123295 [place] [address] 02-12-2025 08:00-0400 Systolic blood pressure 108 mm[Hg] Dr. Amado James MD Work Phone: 6(565)863-912295 [place] [address] 02-12-2025 06:00-0400 Body temperature 97.6 [degF] Dr. Amado James MD Work Phone: 6(099)613-915095 [place] [address] 02-12-2025 05:53-0400 Body mass index (BMI) [Ratio] 39.5 kg/m2 Dr. Amado James MD Work Phone: 7(031)295-984495 [place] [address] 02-12-2025 05:53-0400 Body weight 107.[address] Amado James MD Work Phone: 4(395)194-422295 [place] [address] 02-11-2025 13:30-0400 Body height 165.[address] Amado James MD Work Phone: 3(696)646-479595 [place] [address] 02-10-2025 21:00-0400 Inhaled oxygen flow rate 35 L/min Dr. Amado James MD Work Phone: 6(513)247-856395 [place] [address] 02-05-2025 15:16-0400 Body temperature 97.1 [degF] Dr. Amado James MD Work Phone: 1(917)594-952495 [place] [address] 02-05-2025 15:16-0400 Diastolic blood pressure 60 mm[Hg] Dr. Amado James MD Work Phone: 2(270)864-470495 [place] [address] 02-05-2025 15:16-0400 Heart rate 91 /min Dr. Amado James MD Work Phone: 1(194)022-335095 [place] [address] 02-05-2025 15:16-0400 Inhaled oxygen concentration 60 % Dr. Amado James MD Work Phone: 9(449)529-971795 [place] [address] 02-05-2025 15:16-0400 Respiratory rate 29 /min Dr. Amado James MD Work Phone: 2(721)542-778295 [place] [address] 02-05-2025 15:16-0400 SaO2% (BldA) [Mass fraction] 100 % Dr. Amado James MD Work Phone: 2(240)457-009895 [place] [address] 02-05-2025 15:16-0400 Systolic blood pressure 141 mm[Hg] Dr. Amado James MD Work Phone: 0(574)903-797495 [place] [address] 02-05-2025 13:36-0400 Inhaled oxygen flow rate 6 L/min Dr. Amado James MD Work Phone: 9(674)645-898595 [place] [address] 02-05-2025 09:46-0400 Body height 160.[address] Amado James MD Work Phone: 6(205)249-226095 [place] [address] 02-05-2025 09:46-0400 Body mass index (BMI) [Ratio] 20.6 kg/m2 Dr. Amado James MD Work Phone: 0(774)266-361495 [place] [address] 02-05-2025 09:46-0400 Body weight 52.[address] Amado James MD Work Phone: 2(207)039-392295 [place] [address] 01-29-2025 07:34-0400 Body mass index (BMI) [Ratio] 42.1 kg/m2 Dr. Amado James MD Work Phone: 9(700)148-691495 [place] [address] 01-29-2025 07:34-0400 Body weight 118.[address] Amado James MD Work Phone: [facility] 01-29-2025 07:34-0400 Diastolic blood pressure 65 mm[Hg] Dr. Amado James MD Work Phone: [facility] 01-29-2025 07:34-0400 Heart rate 68 /min Dr. Amado James MD Work Phone: [facility] 01-29-2025 07:34-0400 Respiratory rate 18 /min Dr. Amado James MD Work Phone: [facility] 01-29-2025 07:34-0400 SaO2% (BldA) [Mass fraction] 94 % Dr. Amado James MD Work Phone: [facility] 01-29-2025 07:34-0400 Systolic blood pressure 124 mm[Hg] Dr. Amado James MD Work Phone: [facility] 11-27-2024 13:54-0500 Body weight 109.77 kg Rufinasharon Kingf PROPERTY MANAGEMENT COORDINATOR.BMW SERVICE TECHNICIAN Work Phone: [facility] 11-27-2024 13:54-0500 Diastolic blood pressure 80 mm[Hg] Rufina Larsonhof PROPERTY MANAGEMENT COORDINATOR.BMW SERVICE TECHNICIAN Work Phone: [facility] 11-27-2024 13:54-0500 Heart rate 65 /min Rufina Larsonhof PROPERTY MANAGEMENT COORDINATOR.BMW SERVICE TECHNICIAN Work Phone: [facility] 11-27-2024 13:54-0500 Respiratory rate 16 /min Rufina Marshahof PROPERTY MANAGEMENT COORDINATOR.BMW SERVICE TECHNICIAN Work Phone: [facility] 11-27-2024 13:54-0500 SaO2% (BldA) [Mass fraction] 96 % Rufinasharon Larsonhof PROPERTY MANAGEMENT COORDINATOR.BMW SERVICE TECHNICIAN Work Phone: [facility] 11-27-2024 13:54-0500 Systolic blood pressure 126 mm[Hg] Rufina Tannhof PROPERTY MANAGEMENT COORDINATOR.BMW SERVICE TECHNICIAN Work Phone: [facility] 11-23-2024 08:50-0500 Body mass index (BMI) [Ratio] 42.7 kg/m2 Dr. Amado James MD Work Phone: 7(516)080-237695 [place] [address] 11-23-2024 08:50-0500 Body temperature 97.9 [degF] Dr. Amado James MD Work Phone: 7(964)616-153695 [place] [address] 11-23-2024 08:50-0500 Diastolic blood pressure 66 mm[Hg] Dr. Amado James MD Work Phone: 3(802)523-936295 [place] [address] 11-23-2024 08:50-0500 Heart rate 76 /min Dr. Amado James MD Work Phone: 9(266)000-961895 [place] [address] 11-23-2024 08:50-0500 Respiratory rate 22 /min Dr. Amado James MD Work Phone: 6(908)819-372795 [place] [address] 11-23-2024 08:50-0500 Systolic blood pressure 144 mm[Hg] Dr. Amado James MD Work Phone: 5(529)479-650595 [place] [address] 10-28-2024 00:57-0500 Body weight 120.[address] Amado James MD Work Phone: 4(995)767-426395 [place] [address] 10-26-2024 08:38-0500 Body mass index (BMI) [Ratio] 42.7 kg/m2 Dr. Amado James MD Work Phone: 8(741)398-744595 [place] [address] 10-26-2024 08:38-0500 Body temperature 97.6 [degF] Dr. Amado James MD Work Phone: 6(449)194-845995 [place] [address] 10-26-2024 08:38-0500 Diastolic blood pressure 50 mm[Hg] Dr. Amado James MD Work Phone: 6(426)304-066095 [place] [address] 10-26-2024 08:38-0500 Heart rate 69 /min Dr. Amado James MD Work Phone: 6(301)401-240095 [place] [address] 10-26-2024 08:38-0500 Respiratory rate 22 /min Dr. Amado James MD Work Phone: 2(314)777-558195 [place] [address] 10-26-2024 08:38-0500 Systolic blood pressure 113 mm[Hg] Dr. Amado James MD Work Phone: [facility] 09-27-2024 00:36-0500 Body weight 120.[address] Amado James MD Work Phone: [facility] 09-26-2024 09:30-0500 Body weight 110.3 kg Amado James MD Work Phone: [facility] 09-26-2024 09:30-0500 Diastolic blood pressure 60 mm[Hg] Amado James MD Work Phone: [facility] 09-26-2024 09:30-0500 Heart rate 76 /min Amado James MD Work Phone: [facility] 09-26-2024 09:30-0500 Respiratory rate 20 /min Amado James MD Work Phone: [facility] 09-26-2024 09:30-0500 Systolic blood pressure 108 mm[Hg] Amado James MD Work Phone: [facility] 08-28-2024 13:35-0500 Body weight 113 kg Rufinasharon Larsonhof PROPERTY MANAGEMENT COORDINATOR.BMW SERVICE TECHNICIAN Work Phone: [facility] 08-28-2024 13:35-0500 Diastolic blood pressure 60 mm[Hg] Rufina Tannhof PROPERTY MANAGEMENT COORDINATOR.BMW SERVICE TECHNICIAN Work Phone: [facility] 08-28-2024 13:35-0500 Heart rate 70 /min Rufina Tannhof PROPERTY MANAGEMENT COORDINATOR.BMW SERVICE TECHNICIAN Work Phone: [facility] 08-28-2024 13:35-0500 Respiratory rate 16 /min Rufina Tannhof PROPERTY MANAGEMENT COORDINATOR.BMW SERVICE TECHNICIAN Work Phone: [facility] 08-28-2024 13:35-0500 SaO2% (BldA) [Mass fraction] 96 % Rufina Tannhof PROPERTY MANAGEMENT COORDINATOR.BMW SERVICE TECHNICIAN Work Phone: [facility] 08-28-2024 13:35-0500 Systolic blood pressure 128 mm[Hg] Rufina Soares APRN.CNP Work Phone: [facility] 07-11-2024 16:22-0400 Diastolic blood pressure 80 mm[Hg] Amado James MD Work Phone: [facility] 07-11-2024 16:22-0400 Systolic blood pressure 136 mm[Hg] Amado James MD Work Phone: [facility] 07-11-2024 16:16-0400 Body weight 124.2 kg Amado James MD Work Phone: [facility] 07-11-2024 16:16-0400 Heart rate 76 /min Amado James MD Work Phone: [facility] 07-11-2024 16:16-0400 Respiratory rate 20 /min Amado James MD Work Phone: [facility] 07-11-2024 16:16-0400 SaO2% (BldA) [Mass fraction] 99 % Amado James MD Work Phone: [facility] 05-06-2024 08:43-0400 Body weight 119 kg Amado James MD Work Phone: [facility] 05-06-2024 08:43-0400 Diastolic blood pressure 64 mm[Hg] Amado James MD Work Phone: [facility] 05-06-2024 08:43-0400 Heart rate 68 /min Amado James MD Work Phone: [facility] 05-06-2024 08:43-0400 Respiratory rate 16 /min Amado James MD Work Phone: [facility] 05-06-2024 08:43-0400 SaO2% (BldA) [Mass fraction] 99 % Amado James MD Work Phone: [facility] 05-06-2024 08:43-0400 Systolic blood pressure 97 mm[Hg] Amado James MD Work Phone: [facility] 04-10-2024 18:07-0400 Body weight 120.02 kg Amado James MD Work Phone: [facility] 04-10-2024 18:07-0400 Diastolic blood pressure 80 mm[Hg] Amado James MD Work Phone: [facility] 04-10-2024 18:07-0400 Heart rate 74 /min Amado James MD Work Phone: [facility] 04-10-2024 18:07-0400 Respiratory rate 16 /min Amado James MD Work Phone: [facility] 04-10-2024 18:07-0400 Systolic blood pressure 140 mm[Hg] Amado James MD Work Phone: [facility] 06-17-2023 15:24-0400 Body height 165.[address] Amado James Work Phone: [facility] 06-17-2023 15:24-0400 Body mass index (BMI) [Ratio] 41.9 kg/m2 Dr. Amado James Work Phone: [facility] 06-17-2023 15:24-0400 Body weight 114.[address] Amado James Work Phone: [facility] 06-17-2023 15:24-0400 Diastolic blood pressure 69 mm[Hg] Dr. Amado James Work Phone: [facility] 06-17-2023 15:24-0400 Heart rate 71 /min Dr. Amado James Work Phone: [facility] 06-17-2023 15:24-0400 Respiratory rate 22 /min Dr. Amado James Work Phone: [facility] 06-17-2023 15:24-0400 SaO2% (BldA) [Mass fraction] 94 % Dr. Amado James Work Phone: [facility] 06-17-2023 15:24-0400 Systolic blood pressure 161 mm[Hg] Dr. Amado James Work Phone: [facility] 04-15-2023 15:40-0400 Body weight 116.57 kg Amado James MD Work Phone: [facility] 04-15-2023 15:40-0400 Diastolic blood pressure 70 mm[Hg] Amado James MD Work Phone: [facility] 04-15-2023 15:40-0400 Heart rate 70 /min Amado James MD Work Phone: [facility] 04-15-2023 15:40-0400 Respiratory rate 20 /min Amado James MD Work Phone: [facility] 04-15-2023 15:40-0400 Systolic blood pressure 128 mm[Hg] Amado James MD Work Phone: [facility] 07-13-2022 15:42-0400 Body weight 114.31 kg Amado James MD Work Phone: [facility] 07-13-2022 15:42-0400 Diastolic blood pressure 80 mm[Hg] Amado James MD Work Phone: [facility] 07-13-2022 15:42-0400 Heart rate 64 /min Amado James MD Work Phone: [facility] 07-13-2022 15:42-0400 Respiratory rate 20 /min Amado James MD Work Phone: [facility] 07-13-2022 15:42-0400 Systolic blood pressure 124 mm[Hg] Amado James MD Work Phone: [facility] 06-03-2022 10:21-0400 Diastolic blood pressure 47 mm[Hg] Dr. Amado James Work Phone: [facility] Work Phone: 06-03-2022 10:21-0400 Systolic blood pressure 102 mm[Hg] Dr. Amado James Work Phone: [facility] Work Phone: 06-03-2022 09:06-0400 Body height 165.[address] Amado James Work Phone: [facility] Work Phone: 06-03-2022 09:06-0400 Body mass index (BMI) [Ratio] 42.5 kg/m2 Dr. Amado James Work Phone: [facility] Work Phone: 06-03-2022 09:06-0400 Body weight 116.[address] Amado James Work Phone: [facility] Work Phone: 06-03-2022 09:06-0400 Heart rate 68 /min Dr. Amado James Work Phone: [facility] Work Phone: 06-03-2022 09:06-0400 Respiratory rate 18 /min Dr. Amado James Work Phone: [facility] Work Phone: 06-03-2022 09:06-0400 SaO2% (BldA) [Mass fraction] 96 % Dr. Amado James Work Phone: [facility] Work Phone: 04-07-2022 15:22-0400 Body weight 118.39 kg Amado James MD Work Phone: [facility] 04-07-2022 15:22-0400 Diastolic blood pressure 68 mm[Hg] Amado James MD Work Phone: [facility] 04-07-2022 15:22-0400 Heart rate 78 /min Amado James MD Work Phone: [facility] 04-07-2022 15:22-0400 Respiratory rate 20 /min Amado James MD Work Phone: [facility] 04-07-2022 15:22-0400 Systolic blood pressure 126 mm[Hg] Amado James MD Work Phone: [facility] 02-26-2022 15:19-0400 SaO2% (BldA) [Mass fraction] 94 % Dr. Amado James Work Phone: [facility] Work Phone: 02-26-2022 15:18-0400 Inhaled oxygen flow rate 1 L/min Dr. Amado James Work Phone: [facility] Work Phone: 02-26-2022 15:15-0400 Body temperature 97.6 [degF] Dr. Amado James Work Phone: [facility] Work Phone: 02-26-2022 15:15-0400 Diastolic blood pressure 54 mm[Hg] Dr. Amado James Work Phone: [facility] Work Phone: 02-26-2022 15:15-0400 Heart rate 65 /min Dr. Amado James Work Phone: [facility] Work Phone: 02-26-2022 15:15-0400 Respiratory rate 18 /min Dr. Amado James Work Phone: [facility] Work Phone: 02-26-2022 15:15-0400 Systolic blood pressure 113 mm[Hg] Dr. Amado James Work Phone: [facility] Work Phone: 02-26-2022 14:30-0400 Body height 165.[address] Amado James Work Phone: [facility] Work Phone: 02-26-2022 14:30-0400 Body weight 126.[address] Amado James Work Phone: [facility] Work Phone: 02-23-2022 23:05-0400 Inhaled oxygen concentration 30 % Dr. Amado James Work Phone: [facility] Work Phone: 02-23-2022 05:44-0400 Body mass index (BMI) [Ratio] 46.2 kg/m2 Dr. Amado James Work Phone: [facility] Work Phone: 02-22-2022 12:25-0400 Body temperature 97.2 [degF] Dr. Amado James Work Phone: [facility] Work Phone: 02-22-2022 12:25-0400 Diastolic blood pressure 97 mm[Hg] Dr. Amado James Work Phone: [facility] Work Phone: 02-22-2022 12:25-0400 Heart rate 95 /min Dr. Amado James Work Phone: [facility] Work Phone: 02-22-2022 12:25-0400 Respiratory rate 32 /min Dr. Amado James Work Phone: [facility] Work Phone: 02-22-2022 12:25-0400 SaO2% (BldA) [Mass fraction] 96 % Dr. Amado James Work Phone: [facility] Work Phone: 02-22-2022 12:25-0400 Systolic blood pressure 183 mm[Hg] Dr. Amado James Work Phone: [facility] Work Phone: 02-22-2022 08:18-0400 Body height 166.[address] Amado James Work Phone: [facility] Work Phone: 02-22-2022 08:18-0400 Body mass index (BMI) [Ratio] 47 kg/m2 Dr. Amado James Work Phone: [facility] Work Phone: 02-22-2022 08:18-0400 Body weight 130.[address] Amado James Work Phone: [facility] Work Phone: Encounters Encounter Date Encounter Type Care Provider Facility Start: 08-01-2025 ambulatory Alexis SHEPPARD Faci lity:[facility] Start: 07-31-2025 ambulatory Amado James Facilit y:[facility] Start: 07-16-2025 ambulatory Amado James Facilit y:[facility] Start: 07-04-2025 End: 07-06-2025 Evaluation and management of inpatient [facility] Comment on above: ESRD (end stage jeanne l disease) on dialysis (HCC) (Primary Dx) Start: 07-04-2025 End: 07-04-2025 Subsequent hospital visit by physician Bret Ir Exam Room 1 [facility] Special Procedures Comment on above: Dialysis complicatio n, subsequent encounter Start: 07-04-2025 End: 07-04-2025 ambulatory [facility] Start: 07-03-2025 End: 07-03-2025 Emergency department patient visit Gerardo Felder MD Work Phone: [facility] EMERGENCY DEPT Comment on above: Dialysis complicatio n, subsequent encounter Start: 07-02-2025 End: 07-02-2025 Emergency department patient visit Klever Giorgi CRISTOBAL Work Phone: [facility] EMERGENCY [facility]PT Comment on above: Dialysis complicatio n, initial encounter (Primary Dx) Start: 06-27-2025 ambulatory Amado James Facilit y:[facility] Start: 06-01-2025 End: 06-21-2025 Evaluation and management of inpatient Omid Orona MD Work Phone: [facility] Intensive Care Unit ICU 2 Start: 06-01-2025 ambulatory Sharyn SHEPPARD Facility:[facility] Start: 04-05-2025 End: 04-05-2025 ambulatory BISHNU MENDEZ Facility:A Start: 03-22-2025 End: 03-26-2025 ambulatory JAS RAMIREZ MD Facility:A Start: 03-22-2025 End: 03-26-2025 ambulatory JAS RAMIREZ MD Facility:A Start: 03-21-2025 End: 03-21-2025 ambulatory JANAE ZARCO MD Facility:[facility] Start: 03-12-2025 ambulatory Janusz Reaves Facility :[facility] Start: 03-07-2025 End: 04-18-2025 ambulatory EMERY SAGE MD Facility:A Start: 02-12-[address] Amado mccracken MD Work Phone: [facility] Work Phone: Start: 02-12-2025 Non-patient / Non-visit [facility]cd[facility] Start: 02-11-2025 Non-patient / Non-visit [facility]cd[facility] Start: 02-10-2025 Non-patient / Non-visit Dr. Mcdonald [facility] Start: 02-09-2025 Non-patient / Non-visit Dr. Mcdonald [facility] Start: 02-09-2025 Non-patient / Non-visit Dr. Paris Cardona MD -[facility] Work Phone: Start: 02-09-2025 Non-patient / Non-visit Dr. Jose Hull [facility] Start: 02-08-2025 Non-patient / Non-visit Dr. Milly Gilbert MD [facility] Start: 02-08-2025 Non-patient / Non-visit Dr. Jose Hull [facility] Start: 02-08-2025 Non-patient / Non-visit Dr. Zachery Gomez MD -[facility] Work Phone: Start: 02-07-2025 Non-patient / Non-visit Dr. Kalyn Cardona MD [facility] Start: 02-06-2025 ambulatory Harry Stallings Facility:[facility] Start: 02-06-2025 Non-patient / Non-visit Dr. Mcdonald [facility] Start: 02-06-2025 Non-patient / Non-visit Dr. Zachery Gomez MD -[facility] Work Phone: Start: 02-05-2025 Non-patient / Non-visit Dr. Kalyn Cardona MD -[facility] Start: 02-05-2025 Non-patient / Non-visit Dr. Zachery Gomez MD -[facility] Work Phone: Start: 02-05-2025 ambulatory Zachery Gomez [facility] [facility] Start: 02-05-2025 End: 03-07-2025 Evaluation and management of inpatient Dr. Zachery Gomez MD -Intensive Care Unit Work Phone: Start: 01-29-2025 End: 01-29-[address] Amaod James MD Work Phone: [facility] Work Phone: Start: 01-29-2025 End: 01-29-2025 Patient encounter procedure Janusz Reaves PA -Laboratory Work Phone: Start: 01-29-2025 End: 01-29-2025 Patient encounter procedure Janusz Armeniter CT -[facility] Work Phone: Start: 01-29-2025 End: 01-29-2025 ambulatory Janusz Armeniter [facility] Start: 01-29-2025 End: 01-29-2025 ambulatory Janusz Dembarb Facility:[facility] Start: 12-19-2024 End: 02-18-2025 Follow-up encounter Amado James MD Work Phone: [facility] Start: 12-18-2024 End: 12-18-2024 ambulatory AMADO JAMES Facility:[facility] Start: 11-27-2024 End: 11-27-2024 Office outpatient visit 25 minutes Rufina Soares APRN.CNP Work Phone: [facility] Comment on above: Type 2 diabetes linda itus with chronic kidney disease, with long-term current use of insulin, unspecified CKD stage (HCC) (Primary Dx); Essential hypertension, benign; Hyperlipidemia, unspecified hyperlipidemia type; Chronic kidney disease, stage 4 (severe) (HCC) Start: 11-27-2024 End: 11-27-2024 ambulatory RUFINA SOARES Facility:[facility] Start: 11-23-2024 End: 11-24-2024 ambulatory Amado [facility] Facility:[facility] Start: 11-23-2024 End: 11-24-2024 Discharged Recurring Leyda Erwin DPM -[facility] [address] Work Phone: Start: 11-14-2024 End: 11-14-2024 Telephone encounter Amado James MD Work Phone: [facility] Comment on above: POC update Start: 11-08-2024 End: 11-08-2024 Refill Amado James MD Work Phone: [address] [place] [address] Comment on above: Refill Request Start: 10-26-2024 End: 10-27-2024 ambulatory Amado [facility] Facility:[facility] Start: 10-26-2024 End: 10-27-2024 Discharged Recurring Leyda Erwin DPM -[facility] [address] Work Phone: Start: 10-20-2024 End: 10-20-2024 Telephone encounter Amado James MD Work Phone: [facility] Comment on above: Clinical Update (re- cert for hh) Start: 10-06-2024 End: 10-09-2024 ambulatory Jessica Mckinnon [facility] Start: 10-06-2024 End: 10-09-2024 Patient encounter procedure Jessica Mckinnon MA [facility] Comment on above: Population Health Na vigation Outreach (Nadeen Figu[facility]a [facility]) Start: 09-29-2024 End: 09-29-2024 Telephone encounter Amado James MD Work Phone: [facility] Comment on above: Patient Update Start: 09-26-2024 End: 09-26-2024 ambulatory AMADO JAMES Facility:[facility] Start: 09-26-2024 End: 09-26-2024 Patient encounter procedure Amado James MD Work Phone: [facility] Comment on above: Type 2 diabetes [...] James MD Work Phone: [facility] Comment on above: Jail Cont inued Plan of Care Start: 09-14-2024 End: 09-26-2024 ambulatory [facility] Facility:[facility] Start: 09-11-2024 End: 09-13-2024 Telephone encounter Amado James MD Work Phone: [facility] Comment on above: Patient Update (Bloo d Sugars) Start: 09-08-2024 End: 09-08-2024 Telephone encounter Amado James MD Work Phone: [facility] Comment on above: Orders (HH visit) Start: 09-04-2024 End: 09-04-2024 Telephone encounter Amado James MD Work Phone: [facility] Comment on above: Orders Start: 09-01-2024 End: 09-04-2024 Telephone encounter Rufina Soares APRN.CNP Work Phone: [facility] Start: 08-31-2024 End: 08-31-2024 ambulatory AMADO JAMES Facility:[facility] Start: 08-30-2024 End: 08-31-2024 Telephone encounter Amado James MD Work Phone: [facility] Comment on above: OT plan of care Start: 08-29-2024 End: 08-29-2024 Telephone encounter Amado James MD Work Phone: [facility] Comment on above: Physical Therapy Kathy n of Care Start: 08-28-2024 End: 08-28-2024 Patient encounter procedure Rufina Soares PROPERTY MANAGEMENT COORDINATORJuanBMW SERVICE TECHNICIAN Work Phone: [facility] Comment on above: Hospital discharge f ollow-up (Primary Dx); Type 2 diabetes mellitus with hypoglycaemia without coma (HCC); CKD (chronic kidney disease) stage 4, GFR 15-29 ml/min (HCC); Chronic anemia; Chronic heart failure with preserved ejection fraction (HCC) Start: 08-28-2024 End: 08-28-2024 ambulatory RUFINA SOARES Facility:[facility] Start: 08-25-2024 End: 08-25-2024 Patient Outreach Mariza Graham MA [facility] Comment on above: Transition Of Care Start: 08-22-2024 End: 08-22-2024 Telephone encounter Amado James MD Work Phone: [facility] Comment on above: verbal orders Start: 08-21-2024 ambulatory Eduardo Henry Facility[facility] Start: 08-19-2024 ambulatory Oscar martha Rahul Facili ty:[facility] Start: 08-19-2024 End: 08-22-2024 Evaluation and management of inpatient Oscar Poole Facility:[facility] Start: 08-18-2024 End: 08-18-2024 Telephone encounter Amado James MD Work Phone: [facility] Comment on above: home health calling Start: 08-17-2024 End: 08-26-2024 ambulatory Amado James Facility:[facility] Start: 08-16-2024 End: 08-16-2024 ambulatory Miguel SHEPPARD Facility:[facility] Start: 08-11-2024 ambulatory Lea Loza Facility:[facility] Start: 08-04-2024 ambulatory Tiffany SHEPPARD Facili ty:[facility] Start: 07-13-2024 End: 07-13-2024 Telephone encounter Amado James MD Work Phone: [facility] [place] Comment on above: Medication Problem Start: 07-12-2024 End: 07-12-2024 Refill Amado James MD Work Phone: [facility] Comment on above: Refill Request Start: 07-11-2024 End: 07-11-2024 ambulatory AMADO JAMES Facility:[facility] Start: 07-11-2024 End: 07-11-2024 Patient [...] body mass index of 40.0-44.9 in adult (FORMERLY [facility]) Start: 06-16-2024 End: 06-16-2024 Telephone encounter Amado James MD Work Phone: [facility] Comment on above: Fax Last OV Note Start: 06-06-2024 End: 06-06-2024 Refill Amado James MD Work Phone: [facility] Comment on above: Refill Request Start: 06-05-2024 End: 06-05-2024 Telephone encounter Amado James MD Work Phone: [facility] [place] Comment on above: Opened In Error Start: 06-02-2024 End: 06-02-2024 Telephone encounter Amado James MD Work Phone: [facility] Comment on above: Fax Request Start: 05-06-2024 End: 05-06-2024 ambulatory AMADO JAMES Facility:[facility] Start: 05-06-2024 End: 05-06-2024 Patient encounter procedure [...] current use of insulin, unspecified CKD stage ([facility]ERLY [facility]) Start: 05-03-2024 ambulatory Jessica Mckinnon MA [facility] [place] Start: 05-03-2024 Patient encounter procedure Jessica Mckinnon MA [employer] [facility] [place] Comment on above: Population Health Na vigation Outreach ([place]ade[facility] [employer]benc - [place] [facility]) Start: 04-18-2024 Telephone encounter Amado auguste MD Work Phone: [facility] [place] Comment on above: Results Start: 04-15-2024 End: 04-15-2024 ambulatory AMADO JAMES Facility:[facility] Start: 04-10-2024 End: 04-10-2024 ambulatory AMADO JAMES Facility:[facility] Start: 04-10-2024 End: 04-10-2024 Patient encounter procedure Amado James MD Work Phone: [facility] Comment on above: Hyperlipidemia, unsp ecified hyperlipidemia type (Primary Dx); Chronic kidney disease, stage 4 (severe) (FORM[facility]LY [facility]); Heart failure, unspecified HF chronicity, unspecified heart failure type ([facility]LY [facility]); Morbid obesity with body mass index of 40.0-44.9 in adult (FORM[facility]LY [facility]); Type 2 diabetes mellitus with stage 3b chronic kidney disease, without long-term current use of insulin ([facility]); Essential hypertension, benign; Anemia, unspecified type; Bilateral leg edema; Cellulitis of skin; Other depression Start: 04-04-2024 Telephone encounter Maciel todd APRN.CNP Work Phone: [facility] [place] Comment on above: Appointment Start: 02-28-2024 ambulatory Jessica Mckinnon MA [facility] [place] Start: 02-28-2024 Patient encounter procedure Jessica Mckinnon MA [employer] [facility] [place] Comment on above: Population Health Na vigation Outreach ([facility] 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 - AWV, Care gaps, HCC gap closure - [place] [facility]) Start: 02-22-2024 Refill Amado zayas MD Work Phone: [facility] Comment on above: Refill Request Start: 01-20-2024 Refill Amado zayas MD Work Phone: [facility] Comment on above: Refill Request Start: 01-18-2024 ambulatory Jessica Mckinnon BREEZY [facility] [place] Start: 01-18-2024 Patient encounter procedure Jessica José Miguel Mckinnon MA [facility] Comment on above: Population Health Na vigation Outreach (Nadeen TIJERINA Roster workbench - AWV, Care gaps, HCC gap closure - [place] [facility]) Start: 01-13-2024 Refill Amado zayas MD Work Phone: [facility] Comment on above: Refill Request Start: 12-02-2023 Refill Amado zayas MD Work Phone: [facility] Comment on above: Refill Request Start: 11-26-2023 ambulatory Amado zayas MD Work Phone: [facility] Comment on above: Allied Health Visit (Medication Adherence Outreach ) Start: 06-25-2023 End: 06-25-[address] Amado James Work Phone: [facility] Work Phone: Start: 06-25-2023 End: 06-25-[address] Amado James Work Phone: [facility] Work Phone: Start: 06-21-2023 Telephone encounter Maciel todd APRN.BMW SERVICE TECHNICIAN Work Phone: [facility] Comment on above: Results Start: 06-17-2023 End: 06-17-[address] Amado James Work Phone: [facility] Work Phone: Start: 06-17-2023 End: 06-17-[address] Amado James Work Phone: [facility] Work Phone: Start: 06-14-2023 Refill Amado zayas MD Work Phone: [facility] [place] Comment on above: Refill Request Start: 04-15-2023 End: 04-15-2023 Patient encounter procedure Amado James MD Work Phone: [facility] [place] Comment on above: 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, without long-term current use of insulin (HCC) (Primary Dx); Essential hypertension, benign; Hyperlipidemia, unspecified hyperlipidemia type; Chronic kidney disease, stage 4 (severe) ([facility]LY [facility]); Congestive heart failure, unspecified HF chronicity, unspecified heart failure type ([facility]); Bilateral leg edema; H/O: GI bleed; Anemia, unspecified type; Skin lesion; Morbid obesity with body mass index of 40.0-44.9 in adult (FORM[facility]LY [facility]) Start: 02-24-2023 ambulatory Amado zayas MD Work Phone: [facility] [place] Start: 01-25-2023 ambulatory Samia [place] [employer] Comment on above: Population Health Na vigation Outreach ([place] Care Gap) Start: 01-18-2023 Telephone encounter Amado auguste MD Work Phone: [facility] Comment on above: Medication Problem Start: 12-23-2022 [...] encounter procedure Amado James MD Work Phone: [facility] Comment on above: Controlled type 2 di [...] / Non-visit Dr. Breezy James Work Phone: [facility] Start: 06-17-2022 End: 06-17-[address] Amado James Work Phone: [facility] Work Phone: Start: 06-17-2022 End: 06-17-[address] Amado James Work Phone: [facility] Start: 06-03-2022 End: 06-03-[address] Amado James Work Phone: [facility] Work Phone: Start: 06-03-2022 End: 06-03-[address] Amado James Work Phone: [facility] Start: 04-07-2022 End: 04-07-2022 Patient encounter procedure Amado James MD Work Phone: [facility] Comment on above: Controlled type 2 di abetes mellitus without complication, with long-term current use of insulin (HCC) (Primary Dx); Essential hypertension, benign; Stage 3b chronic kidney disease (HCC); Hyperlipidemia, unspecified hyperlipidemia type; Congestive heart failure, unspecified HF chronicity, unspecified heart failure type (HCC); Bilateral leg edema; SOB (shortness of breath); Anemia, unspecified type; H/O: GI bleed Start: 03-16-2022 ambulatory Samia Darrick [place] [employer] Comment on above: Population Health Na vigation Outreach ([place] Care Gap) Start: 03-04-2022 ambulatory Amado zayas MD Work Phone: [facility] [place] Start: 03-02-2022 End: 03-02-[address] [facility] Start: 02-26-2022 Non-patient / Non-visit Dr. Breezy James Work Phone: [facility] Start: 02-25-2022 Non-patient / Non-visit Dr. Breezy James Work Phone: [facility] Start: 02-25-2022 Non-patient / Non-visit Dr. Breezy James Work Phone: [facility] Start: 02-24-2022 Non-patient / Non-visit Dr. Breezy James Work Phone: [facility] Start: 02-23-2022 Non-patient / Non-visit Dr. Breezy James Work Phone: [facility] Start: 02-23-2022 Non-patient / Non-visit Dr. Breezy James Work Phone: [facility] Start: 02-22-2022 Non-patient / Non-visit Dr. Breezy James Work Phone: [facility] Start: 02-22-2022 End: 02-26-2022 Evaluation and management of inpatient Dr. Amado James Work Phone: [facility] Start: 02-22-2022 Non-patient / Non-visit Dr. Breezy James Work Phone: [facility] Procedures Date Procedure Procedure Detail Performing Clinician Start: 07-06-2025 Radiologic exam chest single view Santos Jacobs DO Work Phone: Start: 07-06-2025 Blood count complete automated Santos Dalton DO Work Phone: Start: 07-06-2025 Renal function [...] det nucleic acid clostridium amp probe Santos Jacobs DO Work Phone: Start: 07-05-2025 Glucose quantitative blood xcpt reagent strip Santos Jacobs DO Work Phone: Start: 07-05-2025 Comprehensive metabolic panel Peter mcgowan PROPERTY MANAGEMENT COORDINATOR - [employer] SERVICE TECHNICIAN Work Phone: Start: 07-04-2025 Glucose quantitative blood [...] Phone: Start: 07-03-2025 Comprehensive metabolic panel Armando Tami Laurel garrick DO Work Phone: Start: 07-03-2025 Ecg routine ecg w/least 12 lds trcg only w/o i&r Armando S Redd DO Work Phone: Start: 07-02-2025 Comprehensive [...] Assay of thyroid stimulating hormone tsh Diana Eduarde PROPERTY MANAGEMENT COORDINATOR - [employer] SERVICE TECHNICIAN Work Phone: Start: 06-14-2025 Ecg routine ecg w/least 12 lds trcg only w/o i&r Diana Ezzie PROPERTY MANAGEMENT COORDINATOR - [employer] SERVICE TECHNICIAN Work Phone: Start: 06-14-2025 IR CVC TUNNELED CENTRAL LINE PLACEMENT Robert Jimenez MD Work Phone: Start: 06-14-2025 Glucose quantitative blood xcpt reagent strip Robert Jimenez MD Work Phone: Start: 06-14-2025 Glucose quantitative blood xcpt reagent strip Robert Jimenez MD Work Phone: Start: 06-14-2025 Comprehensive metabolic panel eGno Waddell MD Work Phone: Start: 06-14-2025 Glucose [...] CVC TUNNELED DIALYSIS CATHETER PLACEMENT Mi Singh PROPERTY MANAGEMENT COORDINATOR - [employer] SERVICE TECHNICIAN Work Phone: Start: 06-12-2025 End: 06-12-2025 Comprehensive [...] FELDER Comment on above: Performed By: #### [id number] ####Medical Di jennifer: NATALIE GARCIA ([id number])[facility] [place] [address] Start: 06-10-2025 Blood typing serologic abo Tomy [...] Work Phone: Start: 06-08-2025 Hemodialysis Mi Singh PROPERTY MANAGEMENT COORDINATOR - [facility] Work Phone: Start: 06-08-2025 Insj non-tunneled central [...] src gram/giemsa stain bct fungi/cell Neelima Hanks PROPERTY MANAGEMENT COORDINATOR - [employer] SERVICE TECHNICIAN Work Phone: Start: 06-06-2025 Glucose quantitative blood [...] FELDER Comment on above: Performed By: #### [id number] ####Medical Di jennifer: NATALIE GARCIA ([id number])[facility])[address] Start: 06-06-2025 Blood typing serologic abo [...] 06-02-2025 Hepatitis b surf antibody hbsab Mi Atkinson clinton PROPERTY MANAGEMENT COORDINATOR - [employer] SERVICE TECHNICIAN Work Phone: Start: 06-02-2025 Iaad ia hepatitis b surface antigen Mi Packrosita PROPERTY MANAGEMENT COORDINATOR - [employer] SERVICE TECHNICIAN Work Phone: Start: 06-02-2025 Glucose quantitative blood [...] FELDER Comment on above: Performed By: #### [id number] ####Medical Di jennifer: NATALIE GARCIA ([phone])[facility] Start: 06-01-2025 ABO and Rh group [...] stent placement Janusz SEARS Comment on above: DPR-ACP-Nmoa LAD w/ 3.0 x 24 mm Promus [...] Author Start: 07-06-2026 Creatinine measurement Creatinine Level [facility] [employer] Start: 07-06-2026 Potassium measurement Potassium Level [facility] Start: 07-05-2026 Creatinine measurement Creatinine Level [facility] Start: 07-05-2026 Potassium measurement Potassium Level [facility] Start: 07-03-2026 Creatinine measurement Creatinine Level [facility] Start: 07-03-2026 Potassium measurement Potassium Level [facility] Start: 07-02-2026 Creatinine measurement Creatinine Level [facility] Start: 07-02-2026 Potassium measurement Potassium Level [facility] Start: 06-21-2026 Creatinine measurement [facility] Start: 06-21-2026 Potassium measurement [facility] Start: 12-18-2025 Complete blood count Hemoglobin/Hematocrit [facility] Start: 12-18-2025 Creatinine measurement Serum Creatinine [facility] Start: 12-18-2025 Hepatitis B surface antibody level LDL Cholesterol [facility] Start: 11-27-2025 Annual PCP Team Chronic Disease Visit Annual PCP Team Chronic Disease Visit [facility] Start: 09-26-2025 Annual PCP Team Chronic Disease Visit Annual PCP Team Chronic Disease Visit [facility] Start: 09-26-2025 BP Controlled (<130/80) BP Controlled (<130/80) [facility] Start: 08-31-2025 Complete blood count Hemoglobin/Hematocrit [facility] Start: 08-31-2025 Creatinine measurement Serum Creatinine [facility] Start: 08-31-2025 Hepatitis B surface antibody level LDL Cholesterol [facility] Start: 08-28-2025 Annual PCP Team Chronic Disease Visit Annual PCP Team Chronic Disease Visit [facility] Start: 08-28-2025 BP Controlled (<130/80) BP Controlled (<130/80) [facility] Start: 07-11-2025 Annual PCP Team Chronic Disease Visit Annual PCP Team Chronic Disease Visit [facility] Start: 07-11-2025 Covid-19 Vaccine ( season) Covid-19 Vaccine ( season) [facility] Comment on above: Postponed from 05/28/2024 (Declined at t his time) Start: 07-11-2025 Pneumococcal Vaccine: 50+ (3 of 3 - PCV20 or PCV21) Pneumococcal Vaccine: 50+ (3 of 3 - PCV20 or PCV21) [facility] Comment on above: Postponed from 10/25/2019 (Declined at t his time) Start: 07-11-2025 Pneumococcal Vaccine: 65+ (3 of 3 - PPSV23 or PCV20) Pneumococcal Vaccine: 65+ (3 of 3 - PPSV23 or PCV20) [facility] Comment on above: Postponed from 10/25/2015 (Declined at t his time) Start: 07-11-2025 RSV Vaccine (1 - 1-dose 75+ series) RSV Vaccine (1 - 1-dose 75+ series) [facility] Comment on above: Postponed from 2023 (Declined at t his time) Start: 07-11-2025 Shingrix Vaccine (1 of 2) Shingrix Vaccine (1 of 2) [facility] Comment on above: Postponed from 1998 (Declined at t his time) Start: 07-06-2025 Diabetic foot examination Diabetic Foot Exam [facility] Start: 07-04-2025 End: 07-03-2026 IR CVC tunneled dialysis catheter placement IR CVC tunneled dialysis catheter placement Imaging STAT Dialysis complication, subsequent encounter Expected: 07/04/2025 (Approximate), Expires: 07/03/2026 [facility] Work Phone: Comment on above: Expected: 07/04/2025 (Approximate), Expi res: 07/03/2026 Start: 06-20-2025 Hemoglobin A1c measurement HbA1C [facility] Start: 05-28-2025 COVID-19 Vaccine ( season) COVID-19 Vaccine ( season) [facility] Start: 05-28-2025 Influenza vaccination Influenza Vaccine (Season Ended) [facility] Start: 05-28-2025 [facility] Start: 05-06-2025 Annual PCP Team Chronic Disease Visit Annual PCP Team Chronic Disease Visit [facility] Start: 05-06-2025 BP Controlled (<130/80) BP Controlled (<130/80) [facility] Start: 04-15-2025 Complete blood count Hemoglobin/Hematocrit [facility] Start: 04-15-2025 Creatinine measurement Serum Creatinine [facility] Start: 04-15-2025 Hepatitis B surface antibody level LDL Cholesterol [facility] Start: 04-10-2025 Annual PCP Team Chronic Disease Visit Annual PCP Team Chronic Disease Visit [facility] Start: 04-10-2025 Anxiety Screening Anxiety Screening [facility] Start: 04-10-2025 Covid-19 Vaccine ( season) Covid-19 Vaccine () [facility] Comment on above: Postponed from 05/28/2023 (Declined at t his time) Start: 04-10-2025 Depression Screening Depression Screening [facility] Start: 03-26-2025 Influenza vaccination [facility] Comment on above: Postponed from 05/28/2024 (Declined at t his time) Start: 03-01-2025 Hemoglobin A1c measurement HbA1C [facility] Start: 02-26-2025 End: 02-26-2025 Patient encounter procedure 02/26/2025 3:00 PM EDT Office Visit [facility] [address] [place] [id number] Amado James MD [address] [place] [address] 3 month DM follow up [facility] Comment on above: 3 month DM follow up Start: 02-12-2025 Patient referral [facility] [employer] [facility] Work Phone: Start: 02-11-2025 End: 02-12-2025 [facility] Start: 02-11-2025 [facility] Start: 02-10-2025 [facility] Start: 02-09-2025 Administration of blood product [facility] Start: 02-08-2025 End: 02-09-2025 [facility] Start: 02-08-2025 Consultation [facility] Start: 02-08-2025 Care planning and problem solving actions [facility] Start: 02-08-2025 Airway suction technique [facility] Start: 02-08-2025 [facility] Start: 02-06-2025 [facility] Start: 02-06-2025 Referral for further care [facility] Start: 02-06-2025 Wound care [facility] Start: 02-06-2025 Thyroid stimulating hormone measurement [facility] Start: 02-05-2025 End: 02-05-2025 Following clinical pathway protocol [facility] Start: 02-05-2025 Consultation for treatment [facility] Start: 02-05-2025 Application of elastic bandage [facility] Start: 02-05-2025 Elevation of affected extremity [facility] Start: 02-05-2025 Notification of physician [facility] Start: 02-05-2025 Patient education [facility] Start: 02-05-2025 Referral to cancer registry coordinator [facility] Start: 02-05-2025 Referral to office clerk [facility] Start: 02-05-2025 [facility] Start: 02-05-2025 Bacteria identified in Blood by Culture Blood Culture [facility] Start: 02-05-2025 Bacteria identified in Urine by Culture Urine Culture [facility] Start: 02-05-2025 Continuous pulse oximetry [facility] Start: 02-05-2025 Oxygen therapy [facility] Start: 02-05-2025 Incentive spirometry [facility] Start: 02-05-2025 Assessment of risk of venous thromboembolism [facility] Start: 02-05-2025 Insertion of catheter into peripheral vein [facility] Start: 02-05-2025 Measuring intake and output [facility] Start: 02-05-2025 Providing care according to standard [facility] Start: 02-05-2025 Referral to occupational therapist [facility] Start: 02-05-2025 Referral to service [facility] Start: 02-05-2025 Vital signs measurements [facility] Start: 02-05-2025 End: 02-05-2025 [facility] Start: 02-05-2025 Bacterial nucleic acid assay [facility] Start: 02-05-2025 Methicillin resistant Staphylococcus aureus (MRSA) DNA [Presence] in Nose by PATEL with probe detection [facility] Start: 02-05-2025 Verification routine [facility] Start: 02-05-2025 Hospital admission, emergency, from emergency room, medical nature [facility] Start: 02-05-2025 Admission procedure [facility] Start: 02-05-2025 End: 02-05-2025 [facility] Start: 02-05-2025 End: 02-05-2025 [facility] Start: 02-05-2025 Dual pressure spontaneous ventilation support [facility] Start: 02-05-2025 Patient referral to dietitian [facility] Start: 01-02-2025 End: 04-03-2025 CBC panel - Blood by Automated count COMPLETE BLOOD COUNT Lab Routine Anemia, unspecified type Expected: 01/02/2025 (Approximate), Expires: 04/03/2025 [facility] Work Phone: Comment on above: Expected: 01/02/2025 (Approximate), Expi res: 04/03/2025 Start: 01-02-2025 End: 04-03-2025 Iron and Iron binding capacity panel - Serum or Plasma IRON AND TIBC Lab Routine Anemia, unspecified type Expected: 01/02/2025 (Approximate), Expires: 04/03/2025 [facility] Comment on above: Expected: 01/02/2025 (Approximate), Expi res: 04/03/2025 Start: 12-08-2024 End: 12-08-2024 Patient encounter procedure 12/08/2024 2:45 PM EDT Office Visit [facility] [address] [place] [address] Jennifer Elizabeth, OD [address] [place] [address] Diabetic eye exam Ophthalmology Comment on above: Diabetic eye exam Start: 11-27-2024 End: 11-27-2024 Patient encounter procedure 11/27/2024 2:00 PM EST Office Visit [facility] [address] [place] [address] Rufina Soares APRN.BMW SERVICE TECHNICIAN [address] [place] [address] 2 mo follow up [facility] [place] Comment on above: 2 mo follow up Start: 11-24-2024 End: 02-23-2025 CBC W Auto Differential panel - Blood COMPLETE BLOOD COUNT AND DIFFERENTIAL Lab Routine Chronic anemia Expected: 11/24/2024 (Approximate), Expires: 02/23/2025 [facility] Comment on above: Expected: 11/24/2024 (Approximate), Expi res: 02/23/2025 Start: 11-24-2024 End: 02-23-2025 Comprehensive metabolic 2000 panel - Serum or Plasma COMPREHENSIVE METABOLIC PANEL Lab Routine Type 2 diabetes mellitus with chronic kidney disease, with long-term current use of insulin, unspecified CKD stage (HCC) Essential hypertension, benign Hyperlipidemia, unspecified hyperlipidemia type Chronic kidney disease, stage 4 (severe) (HCC) Expected: 11/24/2024 (Approximate), Expires: 02/23/2025 [facility] Comment on above: Expected: 11/24/2024 (Approximate), Expi res: 02/23/2025 Start: 11-24-2024 End: 02-23-2025 Hemoglobin A1c in Blood HEMOGLOBIN A1C Lab Routine Type 2 diabetes mellitus with chronic kidney disease, with long-term current use of insulin, unspecified CKD stage (HCC) Expected: 11/24/2024 (Approximate), Expires: 02/23/2025 [facility] Work Phone: Comment on above: Expected: 11/24/2024 (Approximate), Expi res: 02/23/2025 Start: 11-24-2024 End: 02-23-2025 Lipid 1996 panel - Serum or Plasma LIPID PANEL BASIC Lab Routine Type 2 diabetes mellitus with chronic kidney disease, with long-term current use of insulin, unspecified CKD stage (HCC) Essential hypertension, benign Hyperlipidemia, unspecified hyperlipidemia type Expected: 11/24/2024 (Approximate), Expires: 02/23/2025 [facility] Comment on above: Expected: 11/24/2024 (Approximate), Expi res: 02/23/2025 Start: 10-16-2024 Hemoglobin A1c measurement HbA1C [facility] Start: 10-09-2024 Complete blood count Hemoglobin/Hematocrit [facility] Start: 10-09-2024 Creatinine measurement Serum Creatinine [facility] Start: 10-09-2024 Hepatitis B surface antibody level LDL Cholesterol [facility] Start: 10-06-2024 End: 01-05-2025 Microalbumin/Creatinine [Mass Ratio] in Urine ALBUMIN/CREATININE RATIO, URINE Lab Routine Type 2 diabetes mellitus with chronic kidney disease, with long-term current use of insulin, unspecified CKD stage (HCC) Expected: 10/06/2024, Expires: 01/05/2025 [facility] Work Phone: Comment on above: Expected: 10/06/2024, Expires: Start: 09-27-2024 Advance Directive Discussion Advance Directive Discussion [facility] Start: 09-27-2024 Medicare Advantage Annual Wellness Visit Medicare Advantage Annual Wellness Visit [facility] Start: 09-27-2024 [facility] Start: 09-26-2024 End: 09-26-2024 Patient encounter procedure 09/26/2024 9:40 AM EST Office Visit [facility] [place] [address] [place] [address] Amado James MD [address] [place] [id number] 1 week DM follow up [facility] [place] Comment on above: 1 week DM follow up Start: 08-28-2024 End: 08-28-2024 Patient encounter procedure 08/28/2024 2:00 PM EST Office Visit [facility] [place] [address] [place] [address] Rufina Soares APRN.BMW SERVICE TECHNICIAN [address] [place] [address] follow up [facility] for hypoglycemia [facility] [place] Comment on above: follow up [facility] for hypoglycemia Start: 08-22-2024 End: 11-21-2024 CBC W Auto Differential panel - Blood COMPLETE BLOOD COUNT AND DIFFERENTIAL Lab Routine Anemia, unspecified type Expected: 08/22/2024 (Approximate), Expires: 11/21/2024 [facility] Comment on above: Expected: 08/22/2024 (Approximate), Expi [...] leg edema Expected: 08/22/2024 (Approximate), Expires: 11/21/2024 [facility] Work Phone: Comment on above: Expected: 08/22/2024 (Approximate), Expi res: 11/21/2024 Start: 08-22-2024 End: 11-21-2024 Hemoglobin A1c in Blood HEMOGLOBIN A1C Lab Routine Type 2 diabetes mellitus with chronic kidney disease, with long-term current use of insulin, unspecified CKD stage (HCC) Expected: 08/22/2024 (Approximate), Expires: 11/21/2024 [facility] Comment on above: Expected: 08/22/2024 (Approximate), Expi res: 11/21/2024 Start: 08-22-2024 End: 11-21-2024 Lipid 1996 panel - Serum or Plasma LIPID PANEL BASIC Lab Routine Type 2 diabetes mellitus with chronic kidney disease, with long-term current use of insulin, unspecified CKD stage (HCC) Essential hypertension, benign Hyperlipidemia, unspecified hyperlipidemia type Expected: 08/22/2024 (Approximate), Expires: 11/21/2024 [facility] Comment on above: Expected: 08/22/2024 (Approximate), Expi res: 11/21/2024 Start: 08-21-2024 End: 08-21-2024 Patient encounter procedure 08/21/2024 2:00 PM EST Office Visit [facility] [address] [place] [address] Amado James MD [address] [facility] [address] Discharged from [facility] 08/18/24 - wounds on BL feet [facility] [place] Comment on above: Discharged from [facility] 08/18/24 - wounds on BL feet Start: 08-18-2024 End: 08-18-2024 Patient encounter procedure 08/18/2024 4:20 PM EST Office Visit [facility] [place] [address] [place] [address] Amado James MD [address] [facility] [address] 6 week f/u [facility] [place] Comment on above: 6 week f/u Start: 07-11-2024 End: 07-11-2024 Patient encounter procedure [facility] [place] Comment on above: follow up Annual Wellness - fo llow up Start: 05-28-2024 Covid-19 Vaccine ( season) Covid-19 Vaccine ( season) [facility] Start: 05-28-2024 Influenza vaccination [facility] Start: 04-15-2024 3 comp foot exam completed DIABETIC FOOT EXAM [facility] Start: 04-15-2024 ANNUAL PCP TEAM CHRONIC DISEASE VISIT ANNUAL PCP TEAM CHRONIC DISEASE VISIT [facility] Start: 04-15-2024 BP CONTROLLED (<130/80) BP CONTROLLED (<130/80) [facility] Start: 04-15-2024 COLORECTAL CANCER SCREENING COLORECTAL CANCER SCREENING [facility] Comment on above: Postponed from 1993 (Declined at t his time) Start: 04-15-2024 COVID-19 VACCINE (#1) COVID-19 VACCINE (#1) [facility] Comment on above: Postponed from 1948 (Declined at t his time) Start: 04-15-2024 Diabetic foot examination Diabetic Foot Exam [facility] Start: 04-15-2024 Mammography MAMMOGRAM [facility] Comment on above: Postponed from 08/10/2017 (Declined at t his time) Start: 04-15-2024 Pneumococcal Vaccine: 65+ (3 - PPSV23 or PCV20) Pneumococcal Vaccine: 65+ (3 - PPSV23 or PCV20) [facility] Comment on above: Postponed from 10/25/2015 (Declined at t his time) Start: 04-15-2024 Pneumococcal Vaccine: 65+ (3 of 3 - PPSV23 or PCV20) Pneumococcal Vaccine: 65+ (3 of 3 - PPSV23 or PCV20) [facility] Comment on above: Postponed from 10/25/2015 (Declined at t his time) Start: 04-15-2024 PNEUMOCOCCAL: 65+ (3 - PPSV23 or PCV20) PNEUMOCOCCAL: 65+ (3 - PPSV23 or PCV20) [facility] Comment on above: Postponed from 10/25/2015 (Declined at t his time) Start: 04-15-2024 Screening for malignant neoplasm of colon Colorectal Cancer Screening [facility] Comment on above: Postponed from 1993 (Declined at t his time) Start: 04-15-2024 SHINGRIX VACCINE (1 of 2) SHINGRIX VACCINE (1 of 2) [facility] Comment on above: Postponed from 1998 (Declined at t his time) Start: 04-10-2024 End: 04-10-2024 Patient encounter procedure 04/10/2024 6:00 PM EDT Office Visit [facility] [place] [address] [place] [address] Amado James MD [address] [place] [id number] Medicare Wellness [facility] [place] Comment on above: Medicare Wellness Start: 04-10-2024 End: 07-10-2024 CBC panel - Blood by Automated count COMPLETE BLOOD COUNT Lab Routine Essential hypertension, benign Anemia, unspecified type Expected: 04/10/2024 (Approximate), Expires: 07/10/2024 [facility] Comment on above: Expected: 04/10/2024 (Approximate), Expi res: 07/10/2024 Start: 04-10-2024 End: 07-10-2024 Comprehensive metabolic 2000 panel - Serum or Plasma COMPREHENSIVE METABOLIC PANEL Lab Routine Type 2 diabetes mellitus with stage 3b chronic kidney disease, without long-term current use of insulin (HCC) Hyperlipidemia, unspecified hyperlipidemia type Expected: 04/10/2024 (Approximate), Expires: 07/10/2024 [facility] Work Phone: Comment on above: Expected: 04/10/2024 (Approximate), Expi res: 07/10/2024 Start: 04-10-2024 End: 07-10-2024 Hemoglobin A1c in Blood HEMOGLOBIN A1C Lab Routine Type 2 diabetes mellitus with stage 3b chronic kidney disease, without long-term current use of insulin (HCC) Expected: 04/10/2024 (Approximate), Expires: 07/10/2024 [facility] Comment on above: Expected: 04/10/2024 (Approximate), Expi res: 07/10/2024 Start: 04-10-2024 Hepatitis B surface antibody level LDL CHOLESTEROL [facility] Start: 04-10-2024 End: 07-10-2024 Lipid 1996 panel - Serum or Plasma LIPID PANEL BASIC Lab Routine Type 2 diabetes mellitus with stage 3b chronic kidney disease, without long-term current use of insulin (HCC) Hyperlipidemia, unspecified hyperlipidemia type Expected: 04/10/2024 (Approximate), Expires: 07/10/2024 [facility] Comment on above: Expected: 04/10/2024 (Approximate), Expi res: 07/10/2024 Start: 04-10-2024 SERUM CREATININE SERUM CREATININE [facility] Start: 04-08-2024 Hemoglobin A1c measurement HbA1C [facility] Start: 01-13-2024 ANNUAL PCP TEAM CHRONIC DISEASE VISIT ANNUAL PCP TEAM CHRONIC DISEASE VISIT [facility] Start: 01-13-2024 BP CONTROLLED (<130/80) BP CONTROLLED (<130/80) [facility] Start: 01-02-2024 HEMOGLOBIN/HEMATOCRIT HEMOGLOBIN/HEMATOCRIT [facility] Start: 01-02-2024 Hepatitis B screening Urine Albumin:Creatinine Ratio [facility] Start: 01-02-2024 Hepatitis B surface antibody level LDL CHOLESTEROL [facility] Start: 01-02-2024 SERUM CREATININE SERUM CREATININE [facility] Start: 10-16-2023 End: 12-16-2023 CBC W Auto Differential panel - Blood CBC + DIFF Lab Routine H/O: GI bleed Anemia, unspecified type Expected: 10/16/2023 (Approximate), Expires: 12/16/2023 [facility] Work Phone: Comment on above: Expected: 10/16/2023 (Approximate), Expi res: 12/16/2023 Start: 10-16-2023 End: 12-16-2023 Comprehensive metabolic 2000 panel - Serum or Plasma COMP METABOLIC PANEL Lab Routine Chronic kidney disease, stage 4 (severe) ([facility]) Type 2 diabetes mellitus with stage 3b chronic kidney disease, without long-term current use of insulin ([facility]) Hyperlipidemia, unspecified hyperlipidemia type Essential hypertension, benign Expected: 10/16/2023 (Approximate), Expires: 12/16/2023 [facility] Work Phone: Comment on above: Expected: 10/16/2023 (Approximate), Expi res: 12/16/2023 Start: 10-16-2023 End: 12-16-2023 Hemoglobin A1c in Blood HGB A1C Lab Routine Type 2 diabetes mellitus with stage 3b chronic kidney disease, without long-term current use of insulin ([facility]) Expected: 10/16/2023 (Approximate), Expires: 12/16/2023 [facility] Work Phone: Comment on above: Expected: 10/16/2023 (Approximate), Expi res: 12/16/2023 Start: 10-16-2023 End: 12-16-2023 Lipid 1996 panel - Serum or Plasma LIPID PANEL BASIC Lab Routine Hyperlipidemia, unspecified hyperlipidemia type Essential hypertension, benign Expected: 10/16/2023 (Approximate), Expires: 12/16/2023 [facility] Work Phone: Comment on above: Expected: 10/16/2023 (Approximate), Expi res: 12/16/2023 Start: 10-16-2023 End: 12-16-2023 Thyrotropin [Units/volume] in Serum or Plasma TSH BLD Lab Routine Elevated TSH Expected: 10/16/2023 (Approximate), Expires: 12/16/2023 [facility] Work Phone: Comment on above: Expected: 10/16/2023 (Approximate), Expi res: 12/16/2023 Start: 10-11-2023 Hemoglobin A1c/Hemoglobin.total in Blood HBA1C [facility] Start: 09-27-2023 Advance Directive Discussion Advance Directive Discussion [facility] Start: 09-27-2023 Behavioral Health Screening Behavioral Health Screening [facility] Start: 09-27-2023 Depression Assessment Depression Assessment [facility] Start: 07-13-2023 ANNUAL PCP TEAM CHRONIC DISEASE VISIT ANNUAL PCP TEAM CHRONIC DISEASE VISIT [facility] Start: 07-06-2023 HEMOGLOBIN/HEMATOCRIT HEMOGLOBIN/HEMATOCRIT [facility] Start: 07-06-2023 Hepatitis B surface antibody level LDL CHOLESTEROL [facility] Start: 07-06-2023 SERUM CREATININE SERUM CREATININE [facility] Start: 05-28-2023 Covid-19 Vaccine () Covid-19 Vaccine () [facility] Start: 05-28-2023 Influenza vaccination [facility] Start: 04-07-2023 Adult depression screening assessment DEPRESSION SCREENING [facility] Start: 04-07-2023 ANNUAL PCP TEAM CHRONIC DISEASE VISIT ANNUAL PCP TEAM CHRONIC DISEASE VISIT [facility] Start: 04-07-2023 BP CONTROLLED (<130/80) BP CONTROLLED (<130/80) [facility] Start: 04-07-2023 COVID-19 VACCINE (#1) COVID-19 VACCINE (#1) [facility] Comment on above: Postponed from 1948 (Declined at t his time) Start: 04-02-2023 Hemoglobin A1c/Hemoglobin.total in Blood HBA1C [facility] Start: 04-02-2023 HEMOGLOBIN/HEMATOCRIT HEMOGLOBIN/HEMATOCRIT [facility] Start: 04-02-2023 Hepatitis B surface antibody level LDL CHOLESTEROL [facility] Start: 04-02-2023 SERUM CREATININE SERUM CREATININE [facility] Start: 03-26-2023 Influenza vaccination INFLUENZA (#1) [facility] Comment on above: Postponed from 05/28/2022 (Declined at t his time) Start: 2023 RSV Immunization for Adults (1 - 1-dose 75+ series) RSV Immunization for Adults (1 - 1-dose 75+ series) [facility] Start: 2023 [facility] Start: 01-11-2023 End: 03-13-2023 ALBUMIN/CREAT RATIO RND UR ALBUMIN/CREAT RATIO RND UR Lab Routine Controlled type 2 diabetes mellitus without complication, with long-term current use of insulin (HCC) Essential hypertension, benign Stage 3b chronic kidney disease (HCC) Expected: 01/11/2023 (Approximate), Expires: 03/13/2023 [facility] Work Phone: Comment on above: Expected: 01/11/2023 (Approximate), Expi res: 03/13/2023 Start: 01-11-2023 End: 03-13-2023 CBC W Auto Differential panel - Blood CBC + DIFF Lab Routine Essential hypertension, benign Stage 3b chronic kidney disease (HCC) Expected: 01/11/2023 (Approximate), Expires: 03/13/2023 [facility] Work Phone: Comment on above: Expected: 01/11/2023 (Approximate), Expi res: 03/13/2023 Start: 01-11-2023 End: 03-13-2023 Comprehensive metabolic 2000 panel - Serum or Plasma COMP METABOLIC PANEL Lab Routine Controlled type 2 diabetes mellitus without complication, with long-term current use of insulin (HCC) Essential hypertension, benign Hyperlipidemia, unspecified hyperlipidemia type Expected: 01/11/2023 (Approximate), Expires: 03/13/2023 [facility] Work Phone: Comment on above: Expected: 01/11/2023 (Approximate), Expi res: 03/13/2023 Start: 01-11-2023 End: 03-13-2023 Hemoglobin A1c in Blood HGB A1C Lab Routine Controlled type 2 diabetes mellitus without complication, with long-term current use of insulin (HCC) Expected: 01/11/2023 (Approximate), Expires: 03/13/2023 [facility] Work Phone: Comment on above: Expected: 01/11/2023 (Approximate), Expi res: 03/13/2023 Start: 01-11-2023 End: 03-13-2023 Lipid 1996 panel - Serum or Plasma LIPID PANEL BASIC Lab Routine Essential hypertension, benign Hyperlipidemia, unspecified hyperlipidemia type Expected: 01/11/2023 (Approximate), Expires: 03/13/2023 [facility] Work Phone: Comment on above: Expected: 01/11/2023 (Approximate), Expi res: 03/13/2023 Start: 10-06-2022 Hemoglobin A1c/Hemoglobin.total in Blood HBA1C [facility] Start: 10-03-2022 Hemoglobin A1c/Hemoglobin.total in Blood HBA1C [facility] Start: 09-30-2022 ANNUAL PCP TEAM CHRONIC DISEASE VISIT ANNUAL PCP TEAM CHRONIC DISEASE VISIT [facility] Start: 09-30-2022 BP CONTROLLED (<130/80) BP CONTROLLED (<130/80) [facility] Start: 09-27-2022 ADVANCE DIRECTIVE DISCUSSION ADVANCE DIRECTIVE DISCUSSION [facility] Start: 09-27-2022 DEPRESSION ASSESSMENT DEPRESSION ASSESSMENT [facility] Start: 09-22-2022 HEMOGLOBIN/HEMATOCRIT HEMOGLOBIN/HEMATOCRIT [facility] Start: 09-22-2022 Hepatitis B surface antibody level LDL CHOLESTEROL [facility] Start: 09-22-2022 SERUM CREATININE SERUM CREATININE [facility] Start: 07-08-2022 End: 09-07-2022 CBC W Auto Differential panel - Blood CBC + DIFF Lab Routine Essential hypertension, benign Stage 3b chronic kidney disease (HCC) Anemia, unspecified type Expected: 07/08/2022, Expires: 09/07/2022 [facility] Work Phone: Comment on above: Expected: 07/08/2022, Expires: 2 Start: 07-08-2022 End: 09-07-2022 Comprehensive metabolic 2000 panel - Serum or Plasma COMP METABOLIC PANEL Lab Routine Controlled type 2 diabetes mellitus without complication, with long-term current use of insulin (HCC) Essential hypertension, benign Hyperlipidemia, unspecified hyperlipidemia type Stage 3b chronic kidney disease (HCC) Expected: 07/08/2022, Expires: 09/07/2022 [facility] Work Phone: Comment on above: Expected: 07/08/2022, Expires: 2 Start: 07-08-2022 End: 09-07-2022 Hemoglobin A1c in Blood HGB A1C Lab Routine Controlled type 2 diabetes mellitus without complication, with long-term current use of insulin (HCC) Expected: 07/08/2022, Expires: 09/07/2022 [facility] Work Phone: Comment on above: Expected: 07/08/2022, Expires: 2 Start: 07-08-2022 End: 09-07-2022 Lipid 1996 panel - Serum or Plasma LIPID PANEL BASIC Lab Routine Essential hypertension, benign Hyperlipidemia, unspecified hyperlipidemia type Expected: 07/08/2022, Expires: 09/07/2022 [facility] Work Phone: Comment on above: Expected: 07/08/2022, Expires: 2 Start: 05-29-2022 3 comp foot exam completed DIABETIC FOOT EXAM [facility] Start: 05-28-2022 Influenza vaccination [facility] Start: 03-23-2022 Hemoglobin A1c/Hemoglobin.total in Blood HBA1C [facility] Start: 02-26-2022 Patient discharge [facility] Work Phone: Start: 02-26-2022 Adult depression screening assessment DEPRESSION SCREENING [facility] Start: 02-25-2022 Referral to service [facility] Work Phone: Start: 02-25-2022 Continuous pulse oximetry [facility] Work Phone: Start: 02-23-2022 Oxygen therapy [facility] Work Phone: Start: 02-22-2022 Catheterization of vein [facility] Work Phone: Start: 02-22-2022 Bacteria identified in Blood by Culture Blood Culture [facility] Work Phone: Start: 02-22-2022 Following clinical pathway protocol [facility] Work Phone: Start: 02-22-2022 Transfusion of blood product [facility] Work Phone: Start: 02-22-2022 Application of intermittent pneumatic compression device [facility] Work Phone: Start: 02-22-2022 Assessment of risk of venous thromboembolism [facility] Work Phone: Start: 02-22-2022 Care regimes management [facility] Work Phone: Start: 02-22-2022 Catheterization of vein [facility] Work Phone: Start: 02-22-2022 Chart related administrative procedure [facility] Work Phone: Start: 02-22-2022 Incentive spirometry [facility] Work Phone: Start: 02-22-2022 Inhalation therapy procedure [facility] Work Phone: Start: 02-22-2022 Insertion of catheter into peripheral vein [facility] Work Phone: Start: 02-22-2022 Measuring intake and output [facility] Work Phone: Start: 02-22-2022 Notification of physician [facility] Work Phone: Start: 02-22-2022 Providing care according to standard [facility] Work Phone: Start: 02-22-2022 Provision of activity privileges [facility] Work Phone: Start: 02-22-2022 Referral to gastroenterology service [facility] Work Phone: Start: 02-22-2022 Referral to occupational therapist [facility] Work Phone: Start: 02-22-2022 Referral to service [facility] Work Phone: Start: 02-22-2022 [facility] Work Phone: Start: 02-22-2022 Admission procedure [facility] Work Phone: Start: 02-22-2022 Administration of blood product [facility] Work Phone: Start: 02-22-2022 Patient referral to dietitian [facility] Work Phone: Start: 09-27-2021 ADVANCE DIRECTIVE DISCUSSION ADVANCE DIRECTIVE DISCUSSION [facility] Start: 10-25-2019 Pneumococcal Vaccine: 50+ Years (3 of 3 - PCV20 or PCV21) Pneumococcal Vaccine: 50+ Years (3 of 3 - PCV20 or PCV21) [facility] Start: 10-25-2019 [facility] Start: 06-03-2019 COLORECTAL CANCER SCREENING COLORECTAL CANCER SCREENING [facility] Start: 06-03-2019 FECAL OCCULT BLOOD FECAL OCCULT BLOOD [facility] Start: 06-03-2019 Screening for malignant neoplasm of colon Fecal Occult Blood [facility] Start: 03-11-2019 Glaucoma screening Dilated Retinal Exam [facility] Start: 03-11-2019 Hepatitis C antibody, confirmatory test DILATED RETINAL EXAM [facility] Start: 08-10-2017 Mammography MAMMOGRAM [facility] Start: 10-25-2015 Pneumococcal Vaccine: 65+ (3 of 3 - PPSV23 or PCV20) Pneumococcal Vaccine: 65+ (3 of 3 - PPSV23 or PCV20) [facility] Start: 10-25-2015 PNEUMOCOCCAL: 65+ (3 - PPSV23 if available, else PCV20) PNEUMOCOCCAL: 65+ (3 - PPSV23 if available, else PCV20) [facility] Start: 10-25-2015 PNEUMOCOCCAL: 65+ (3 - PPSV23 or PCV20) PNEUMOCOCCAL: 65+ (3 - PPSV23 or PCV20) [facility] Start: 12-20-2014 Pneumococcal Vaccine: 50+ Years (3 of 3 - PPSV23, PCV20 or PCV21) Pneumococcal Vaccine: 50+ Years (3 of 3 - PPSV23, PCV20 or PCV21) [facility] Start: 2008 Hepatitis B Vaccine (1 of 3 - Risk 3-dose series) Hepatitis B Vaccine (1 of 3 - Risk 3-dose series) [facility] Start: 2008 RSV Vaccine (1 - 1-dose 60+ series) RSV Vaccine (1 - 1-dose 60+ series) [facility] Start: 1998 SHINGRIX VACCINE (1 of 2) SHINGRIX VACCINE (1 of 2) [facility] Start: 1998 Zoster Vaccines (1 of 2) Zoster Vaccines (1 of 2) [facility] Start: 1998 [facility] Start: 1993 COLOGUARD (FIT-DNA) COLOGUARD (FIT-DNA) [facility] Start: 1993 Colonoscopy COLONOSCOPY [facility] Start: [address] COLONOGRAPHY [facility] Start: 1993 Screening for malignant neoplasm of colon [facility] Start: 1993 SIGMOIDOSCOPY SIGMOIDOSCOPY [facility] Start: 1968 Hepatitis B Vaccines (1 of 3 - Risk Dialysis 4-dose series) Hepatitis B Vaccines (1 of 3 - Risk Dialysis 4-dose series) [facility] Start: 1967 DTaP/Tdap/Td Vaccines (1 - Tdap) DTaP/Tdap/Td Vaccines (1 - Tdap) [facility] Start: 1967 Urine microalbumin profile [facility] Start: 1967 [facility] Start: 1966 BP CONTROLLED (<130/80) BP CONTROLLED (<130/80) [facility] Start: 1966 Hepatitis C screening [facility] Start: 1960 Depression Monitoring Depression Monitoring [facility] Start: 1960 [facility] Start: 1953 COVID-19 VACCINE (#1) COVID-19 VACCINE (#1) [facility] Start: 1948 Echocardiography Echocardiogram [facility] Start: 1948 Screening for osteoporosis [facility] Start: 1948 [facility] Anion gap in Serum o r Plasma [facility] Anion gap in Serum o r Plasma [facility] Anion gap in Serum o r Plasma [facility] Basic metabolic 2008 panel with ionized calcium - Serum or Plasma [facility] BUN/Creatinine ratio [facility] BUN/Creatinine ratio [facility] BUN/Creatinine ratio [facility] Calcium [Mass/volume ] in Serum or Plasma [facility] Calcium [Mass/volume ] in Serum or Plasma [facility] Calcium [Mass/volume ] in Serum or Plasma [facility] Carbon dioxide, tota l [Moles/volume] in Central venous blood [facility] Carbon dioxide, tota l [Moles/volume] in Central venous blood [facility] Carbon dioxide, tota l [Moles/volume] in Central venous blood [facility] Creatinine [Mass/vol ume] in Serum or Plasma [facility] Creatinine [Mass/vol ume] in Serum or Plasma [facility] Creatinine [Mass/vol ume] in Serum or Plasma [facility] Erythrocyte mean corpuscular volume determination [facility] Glucose [Mass/volume ] in Serum or Plasma [facility] Glucose [Mass/volume ] in Serum or Plasma [facility] Glucose [Mass/volume ] in Serum or Plasma [facility] Hematocrit [Volume Fraction] of Blood [facility] Hemoglobin [Mass/vol ume] in Blood [facility] Leukocytes [#/volume ] in Blood [facility] End: 03-25-2024 [facility] SCRE[facility] Radiology Routine Encounter for screening mammogram for breast cancer 1 Occurrences starting 02/24/2023 until 03/25/2024 [facility] Work Phone: Comment on above: 1 Occurrences starting 02/24/2023 until 03/25/2024 Mean corpuscular hemoglobin concentration determination [facility] Mean corpuscular hemoglobin determination [facility] Measurement of renal function [facility] Measurement of renal function [facility] Measurement of renal function [facility] Neutrophil count [facility] Neutrophil percent differential count [facility] NM Heart Views W str ess and W radionuclide IV [facility] Work Phone: NM Heart Views W str ess and W radionuclide IV [facility] Patient referral [facility] Work Phone: Platelets [#/volume] in Blood [facility] Potassium measurement [facility] Potassium measurement [facility] Potassium measurement [facility] Red blood cell count [facility] Red cell distributio n width determination [facility] End: 04-03-2023 Screening mammography bi 2-view breast inc cad [facility] SCREEN[facility] Radiology Routine Encounter for screening mammogram for breast cancer 1 Occurrences starting 03/04/2022 until 04/03/2023 [facility] [employer] Work Phone: Comment on above: 1 Occurrences starting 03/04/2022 until 04/03/2023 Serum chloride measurement [facility] Serum chloride measurement [facility] Serum chloride measurement [facility] Sodium measurement [facility] Sodium measurement [facility] Sodium measurement [facility] Troponin T.cardiac [Mass/volume] in Serum or Plasma by High sensitivity method [facility] Troponin T.cardiac [Mass/volume] in Serum or Plasma by High sensitivity method [facility] Urea nitrogen [Mass/volume] in Serum or Plasma [facility] Urea nitrogen [Mass/volume] in Serum or Plasma [facility] Urea nitrogen [Mass/volume] in Serum or Plasma [facility] Urine culture [facility] Immunizations Immunization Date Immunization Notes Care Provider Fa cility 06-03-2018 influenza virus vacc ine, unspecified formulation Amado James MD Work Phone: [facility] 10-25-2014 pneumococcal conjuga te vaccine, 13 valent Amado James MD Work Phone: [facility] 06-27-[address] Amado James Work Phone: [facility] 07-08-2010 influenza virus vacc ine, unspecified formulation Amado James MD Work Phone: [facility] 07-17-2005 influenza virus vacc ine, unspecified formulation Amado James MD Work Phone: [facility] 07-17-2005 pneumococcal polysaccharide vaccine, 23 valent Amado James MD Work Phone: [facility] 06-27-[address] Kamini James Work Phone: [facility] Work Phone: 06-27-2003 pneumococcal vaccine , unspecified formulation Amado James MD Work Phone: [facility] Payers Date Payer Category Payer Medicare [id number] 2025 Unknown xx 2025 Self-pay [id number] 2024 Medicaid [id number] 2024 Medicaid [id number] 2023 Medicare HMO [id number] 2019 Medicare (Managed Care) [employer] PPO Member Subscriber Plan / Payer (Effective 2019-Present) Name: Rosa Myers Relation to Subscriber: Self Name: Rosa Myers Payer ID: [id number] ([facility]) Group ID: [id number] Type: PPO Address: [address] [place] [id number] 2019 Unknown ANTHEM SYDNEY CROS S AND BLUE SHIELD ANTHEM MEDIBLUE ACCESS [id number] 2019-Present [phone] [address] [place] [address] PPO [id number] 2019 Unknown [id number] 2019 Medicare [id number] Unknown [id number] Unknown [id number] Unknown [id number]. Unknown [id number] Unknown [id number]. Unknown [id number] Social History Date Type Detail Facility Start: 02-22-2022 End: 06-17-2023 Tobacco smoking status DEIS Unknown if ever smoked [facility] Start: 09-26-2013 None [facility] Start: 09-26-2013 Spouse/ Signif icant Other [facility] Start: 09-26-2013 Non-smoker [facility] Start: 1950 Sex Assigned At Female W [facility] Start: 07-13-2022 End: 02-05-2025 Tobacco smoking status NHIS Ex-smoker [facility] Start: 09-30-2021 End: 11-27-2024 Alcohol intake Current non-drinker of alcohol (finding) [facility] Start: 12-31-2009 End: 07-13-2022 Tobacco Comment Quit 1980s [facility] Start: 1950 Sex Assigned At Not on file [facility] Start: 02-22-2022 End: 04-07-2022 Exposure to SARS-CoV-2 (event) Not sure [facility] Work Phone: History of tobacco use Current smoker [facility] Start: 07-13-2022 End: 06-01-2025 Tobacco use and exposure Smokeless tobacco non-user [facility] Start: 04-15-2023 End: 07-06-2025 History of Social function [facility] Work Phone: Start: 04-15-2023 End: 07-06-2025 Tobacco use panel [facility] Work Phone: Adult Depression Screening Assessment 2 [facility] Work Phone: How often to you hav e a drink containing alcohol? Never [facility] Start: 06-01-2025 Tobacco smoking status NHIS Never smoked tobacco [facility] History of tobacco use Passive smoker [facility] Within the last year , have you been afraid of your partner or ex-partner? No [facility] Start: 06-01-2025 Sex Female (finding) [facility] NEGATED: Highlighted row Not [facility] Medical Equipment Procedure Code Equipment Code Equipment Origin al Text Equipment Identifier Dates Amputation, foot AXIOFILL,500MG FDA Star t: 07-14-2024 Amputation, foot AXIOFILL,500MG FDA Star t: 07-14-2024 Amputation, foot AXIOFILL,500MG FDA Star t: 07-14-2024 [id number], [id number], [id number], [id number], [id number] Start: 08-10-2016 End: 08-28-2024 Comment on above: [...] Assessment Result Facility 02-12-2025 Functional status Bedrest [facility] Work Phone: 02-26-2022 Functional status Ambulates [facility] Work Phone: 10-25-2014 Are you deaf, or do you have serious difficulty hearing No 10/25/2014 9:39 AM Mariza Rehman MA No [facility] 10-25-2014 Are you blind, or do you have serious difficulty seeing, even when wearing glasses No 10/25/2014 9:39 AM Mariza Rehman MA No [facility] 10-25-2014 Do you have serious difficulty walking or climbing stairs No 10/25/2014 9:39 AM Mariza Rehman MA No [facility] 10-25-2014 Do you have difficul ty dressing or bathing No 10/25/2014 9:39 AM Mariza Rehman MA No [facility] 10-25-2014 Because of a physica l, mental, or emotional condition, do you have difficulty doing errands alone such as visiting a physician's office or shopping No 10/25/2014 9:39 AM Mariza Rehman MA No [facility] Mental Status Date Assessment Result Facility 02-12-2025 Cognitive function Voice/Name;Light Pain [facility] Work Phone: 02-26-2022 Cognitive function Voice/Name [facility] Work Phone: 10-25-2014 Because of a physica l, mental, or emotional condition, do you have serious difficulty concentrating, remembering, or making decisions No 10/25/2014 9:39 AM Mariza Rehman MA No [facility] Clinical Notes 09-27-2013 to 07-06-2025 Darrell Egan RN - 07/06/2025 5:28 PM Stefani Egan RN - 07/06/2025 5:28 PM Stefani Egan RN - 07/06/2025 4:06 PM Joie Prasad RN - 07/06/2025 12:10 PM EDTDischarge Instr - TERRA Note Date & Type Note Facility 07-06-2025 Nurse Note Pt report called to SNF , Pt care transferred to Private EMS Product Applications Engineer , Vitals and Pertinent medical hx and treatment reviewed. Pt transferred from bed to cot rails x 2. Vent switched from RT vent to EMS teams Vent. Pt left in EMS crews care fro transport back to SNF [facility] 07-06-2025 Nurse Note Pt report called to SNF , Pt care transferred to Private EMS Product Applications Engineer , Vitals and Pertinent medical hx and [...] Name: Rosa Myers Patient : 1950 Acct: [id number] Date of Admission: 07/04/2025 Room/Bed: T2-217/T2-217 A [...] - Before each treatment: Dialysis Machine No.: [id number] Machine Number: [id number] Dialyzer Lot No.: [id number] Tubing Lot Number: [id number] All Connections Secure: Yes Venous Parameters Set: Yes Arterial Parameters Set: Yes NS Bag: Yes Saline Line Double Clamped: Yes Dialyzer: Nipro Prime Volume (mL): 250 mL RO Machine Number: [id number] RO Machine Log Sheet Completed: Yes Machine Alarm Self Test: Completed, Passed (07/06/25819) Air Foam Detector: Tested, Proper Function, pH Reading Extracorporeal Circuit Tested for Integrity: Yes Machine Conductivity: 14.3 Manual Conductivity: 14 Manual Ph: 7.2 Bleach Test (Neg): Yes Bath Temperature: 36 C (96.8 F) Conductivity Meter Serial #: [id number] Machine Functioning Alarm Free? Yes Dialysis Bath: K+ (Potassium): 3 Ca+ (Calcium): 2.5 Na+ (Sodium): 137 HCO3 (Bicarb): 32 Bicarbonate Concentrate Lot No.: [id number] Acid Concentrate Lot No.: [id number] Chlorine Testing - Before each treatment and [...] (97.5 F) -- 58 14 100 % 07/06/2512 -- -- -- 67 (!) 10 100 [...] ESRD (end stage renal disease) on dialysis ([facility]) [3] Patient bleeding from old IV site. Changed patient's gown, linens. Also rolled new pull pad under patient. No kinks in FMS. Patient Name: Rosa Myers Patient : 1950 Acct: [id number] Date of Admission: 07/04/2025 Room/Bed: T2-217/T2 A [...] - Before each treatment: Dialysis Machine No.: [id number] RO Machine Number: [id number] Dialyzer Lot No.: [id number] Tubing Lot Number: [id number] All Connections Secure: Yes Venous Parameters Set: Yes Arterial Parameters Set: Yes NS Bag: Yes Saline Line Double Clamped: Yes Dialyzer: Nipro Prime Volume (mL): 200 mL RO Machine Number: [id number] RO Machine Log Sheet Completed: Yes Machine Alarm Self Test: Completed, Passed (The machine passed all tests at 0417.) (07/05/254) Air Foam Detector: Tested, Proper Function Extracorporeal Circuit Tested for Integrity: Yes Machine Conductivity: 14.3 Manual Conductivity: 14.4 Manual Ph: 7.2 Bleach Test (Neg): Yes Bath Temperature: 36 C (96.8 F) Conductivity Meter Serial #: [id number] Machine Functioning Alarm Free? Yes Dialysis Bath: K+ (Potassium): 3 Ca+ (Calcium): 2.5 Na+ (Sodium): 137 HCO3 (Bicarb): 32 Chlorine Testing - Before each treatment and every 4 hours: Time On: 05 Time Off: 809 Treatment Goal: 1L Weight [...] Primary RN at bedside. UF Removed- 1284 10/09/25 0800 400 mL/min 500 ml/hr -110 mmHg [...] -- 65 17 100 % -- -- 07/05/25602 -- -- -- 62 -- 100 % -- -- 07/05/25599 (!) 117/48 -- -- 64 13 100 % -- 105 kg (232 lb 9.4 oz) 07/05/2545 (!) 111/47 -- -- 63 (!) 5 100 % -- -- 10/09/25 0530 109/52 -- -- 62 (!) 6 [...] Anemia Anemia, unspecified type Moderate malnutrition (CMS/HCC) ([facility]) Acute metabolic encephalopathy Anxiety and depression Debility ESRD (end stage renal disease) on dialysis ([facility]) [3] This RN reached out to Dr. [...] and he confirmed. documented in this encounter [facility] 07-06-2025 Nurse Note Pt is confused at baseline , pt is from a SNF pt has son who cares for her as well. [facility] 07-06-2025 History of Presen t illness Narrative Images from the original note were not included. NEPHROLOGY PROGRESS NOTE PATIENT NAME: Rosa Myers ROOM: T2-217/T2-217 A SERVICE DATE: 07/06/2025 SERVICE TIME: 3:11 PM LENGTH OF STAY: 2 day(s) REFERRING PHYSICIAN: Santos Jacobs DO PRIMARY CARE PHYSICIAN: No primary care provider on file. OUTPATIENT ADMINISTRATIVE SUPPORT ASSISTANT: [facility] (Dr. Loredo) Subjective/HPI [...] 127/46 -- -- 61 14 100 % 07/06/2520 (!) 126/44 36.4 C (97.5 F) -- 58 14 100 % 07/06/2512 -- -- -- 67 (!) 10 100 % 07/06/25699 -- -- -- 62 -- -- 07/06/25404 -- -- -- 65 18 100 % 07/06/250 146/55 37.1 C (98.8 F) Temporal 62 [...] 07/03/25 108 kg (237 lb 9.6 oz) 09/15/25 104 kg (229 lb 0.9 oz) General: [...] (H) 06/02/2025 Lab Results Component Value Date [id number] 1,032 (H) 06/02/2025 FOLATE 12.6 06/02/2025 Recent [...] HD per Wednesday through Wednesday schedule at [facility], HTN, HLD, CHF, chronic respiratory failure s/p trach/PEG, DM type 2, neuropathy, history of C. difficile colitis, anxiety, depression, morbid obesity who presented with malfunctioning of her RIJ HDTC and was admitted for dialysis following replacement of her tunneled line. Nephrology is following for the provision of inpatient dialysis. Plan ESRD on HD per Wednesday through Wednesday schedule at [facility] - patient typically dialyzes per a Wednesday through Wednesday schedule - will plan to dialyze per a [facility] schedule while as an inpatient - s/p 3 hour 30 minute HD treatment today as below: [id number] Na 137 K 3 Ca 2.5 HCO3 [...] Rosa Myers ROOM: T2/ A DATE: July 06, 2025 TIME: 3:11 PM PAGER: [phone] OFFICE: [phone] [1] albuterol, 2.5 mg, Nebulization, TID atorvastatin, [...] chloride 0.9%, 5-40 mL, IntraVENous, q12h [2] [facility] Respiratory Care Department Progress Note Spontaneous [...] 420 mL (07/04/251554) FiO2 (%): 50 % (10/10/25 0400) PEEP/CPAP (cm H2O): 8 cm H20 (07/04/25 1555) Inspiratory Time (sec): 0.9 sec (07/04/25 1555) Vitals MAP (mmHg): 80 (07/06/25 0400) Heart Rate: 63 (07/06/25 1200) Resp: 18 (07/06/25 1200) SpO2: 100 % (07/06/25 1200) Suctioning/Secretions Secretion Amount: Moderate (07/05/25 153) Secretion Color: White, Villegas (07/05/25 153) Secretion Consistency: Thick (07/05/25 153) ABG results No results for input(s): "PHART", "EEQ7BRJ", "PO2ART", "UNW5XRF", "SO2ART", "A1XTKHIY" in the last 72 hours. Does this [...] Full Code Anticipated Discharge - Date - [facility] 07/06 Extended Emergency Contact Information Primary Emergency Contact: Marcell Myers Mobile Relation: Son Bearingizer needed? No Santos Jacobs DO Division of Hospitalist Medicine [employer] [1] Past Medical History: Diagnosis Date Anxiety [...] 3350, sodium chloride, sodium chloride 0.9% [4] [facility] Respiratory Care Department Progress Note Spontaneous [...] Resp: 17 (07/05/25 1000) SpO2: 100 % (07/05/25 1000) Suctioning/Secretions Secretion Amount: Large (07/05/25 0745) Secretion Color: White (07/05/25 0745) Secretion Consistency: Thin (07/05/25 0745) ABG results No results for input(s): "PHART", "IXM8TZA", "PO2ART", "SWQ9ISO", "SO2ART", "W2RTOTFT" in the last 72 hours. Does this patient meet criteria for termination of mechanical ventilation No - Chronic Vent Dependent Name of physician notified via secure chat or in person : n/a (NA if patient did not meet criteria) Comments: Thank you for involving Respiratory in the care of this patient, [facility] Respiratory Care Department Progress Note Spontaneous Awakening Trial Wean Screen Spontaneous Breathing Trial Vent Settings Vent Mode: Assist control (07/04/251554) Mandatory Type: VC+ (07/04/251554) Resp Rate (Set): 14 (07/04/251554) Vt (Set, mL): 420 mL (07/04/251554) FiO2 (%): 70 % (07/04/25 160) PEEP/CPAP (cm H2O): 8 cm H20 (07/04/251554) Inspiratory Time (sec): 0.9 sec (07/04/25 155) Vitals MAP (mmHg): 80 (07/04/25 1606) Heart Rate: 72 (07/04/25 160) Resp: 14 (07/04/25 160) SpO2: 100 % (07/04/25 1606) Suctioning/Secretions Secretion Amount: Small (07/04/25 1555) Secretion Color: White (07/04/25 1555) Secretion Consistency: Thick (07/04/25 2209) ABG results No results for input(s): "PHART", "NDS3USZ", "PO2ART", "GRA7CDW", "SO2ART", "S1NYWCWW" in the last 72 hours. Does this patient meet criteria for termination of mechanical ventilation No - Chronic Vent Dependent Name of physician notified via secure chat or in person : NA (NA if patient did not meet criteria) Comments: Thank you for involving Respiratory in the care of this patient, documented in this encounter [facility] 07-06-2025 Progress note Formatting of t his note might be different from the original. Case Management Discharge Summary Note Who you talked to: Name: Marcell Myers No answer, left HIPAA compliant VM. Marcell was aware patient would likely discharge today back to SNF. PLAN: [facility], Level of Care: termination clerk care, and Transport: Prosper Garcia and Barbara via stretcher 07/06/2025 at 7pm.Trach to vent requested. CM anticipates no copay for transport as mihaelatent has dual MCR and JOON. [facility] 07-06-2025 Miscellaneous Notes Case Management Discharge Summary Note Who you talked to: Name: Marcell Myers No answer, left HIPAA compliant VM. Marcell was aware patient would likely discharge today back to SNF. PLAN: Jail Facility [facility], Level of Care: termination clerk care, and Transport: Prospertl Garcia and Barbara via stretcher 07/06/2025 at 7pm.Trach to vent requested. CM anticipates no copay for transport as joão has dual MCR and JOON. Care Management Progress Note Short Medical why still here: Remains for chronic trach/peg, iHD baseline - 5d/wk, iHD today. Nephrology following/consult. Plan for discharge today s/p iHD run. 07/06/25 Ok to discharge per attending. CM tasked APARTMENT HOTEL MANAGER [facility]. [facility]charge Disposition: Group Home/Residential Care ([facility]) Barriers/Today we still Wait: Clinical stability, Procedure (comment) Length of Stay (Days): 2 GMLOS: No GMLOS Documented Case management will continue to follow for discharge planning. Care Management Progress Note Short Medical why still here: Remains for chronic trach/peg, iHD baseline - 5d/wk, iHD today. Nephrology following/consult. Planned Discharge Disposition: Group Home/Residential Care ([facility]) Can return when medically ready, will need transportation set up. Barriers/Today we still Wait: Clinical stability, Diesel Dragline Operator recommendations (comment), Symptomatic control Length of Stay (Days): 1 GMLOS: No GMLOS Documented Case management will continue to follow for discharge planning. Care Managment Initial Assessment Date: 07/05/2025 Patient Name: Rosa Myers : 1950 Patient Information Source of Information: Patient, Patient Clip Riveter Name/Contact Information: Marcell Myers Son [phone] Cognition/Language: Other (Comment) (trach/vent - mouths words) Permission given to speak with patient veterans employment representative/caregiver as indicated: Yes Confirmation of Payer with patient/family: Yes Payer Name: [place]: Confirmation of Primary Care Physician: Confirmed (SNF provider) Seen in last 2 years?: Yes Primary Caregiver: Other (Comment) (facility) If assistance needed, confirmed caregiver ready, willing and able to care for patient at discharge: Confirmed with: Living Arrangements Current Residence: Number of Floors Number of Entry Steps: Bed/Bath Levels: Facility: Group Home/Residental Care Facility Name: [facility] Plan to Return: Lives with: Other [...] Plan Patient expects to be discharged to: [facility] Discharge Planning Actions: Continue to follow, Jail Facility referral indicated [place] of choice: [place] of choice discussed Patient's Choice Rights and [employer] and Collaborative Relationships Disclosed as Indicated for Post-Acute Care: Yes Interdisciplinary Team Engagement: Social Work Referral for: Additional Information: Initial Assessment: Chart reviewed. IA/HRA completed. CM spoke with patient at bedside. Appropriate PPE worn. Patient trach to vent, mouths words and gestures appropriately. Patient from [facility] - LTC bedhold. Has insurance on EHR. PCP at [facility]. Patient requested CM to call son Marcell to discuss discharge planning. CM called Marcell (son) [phone] regarding discharge planning. Introduced myself and role. Discussed LTACH vs SNF and LTC facility. Discussed several recent admissions to hospital. Marcell wishes for patient to return to [facility]. CM tasked APARTMENT HOTEL MANAGER to send referral via careport. Confirmed patient is LTC bedhold, iHD mon to [facility] at facility. Will need transportation to facility. Case management will continue to follow for discharge planning. Return referral placed to [facility] via Careport per TCC request. Await review and response regarding ability to accept. TCC notified. documented in this encounter [facility] 07-06-2025 Progress note Formatting of t his note might be different from the original. Care Management Progress Note Short Medical why still here: Remains for chronic trach/peg, iHD baseline - 5d/wk, iHD today. Nephrology following/consult. Plan for discharge today s/p iHD run. 07/06/25 Ok to discharge per attending. CM tasked APARTMENT HOTEL MANAGER to send discharge orders to SNF via careport. Planned Discharge Disposition: Group Home/Residential Care ([facility]) Barriers/Today we still Wait: Clinical stability, Procedure (comment) Length of Stay (Days): 2 GMLOS: No GMLOS Documented Case management will continue to follow for discharge planning. [facility] 07-06-2025 Nurse Note Patient Name: Rosa Myers Patient : 1950 Acct: [id number] Date of Admission: 07/04/2025 Room/Bed: T2-217/T2-217 A [...] Date/Time WBC 7.8 07/06/2025804 HGB 7.7 (L) 07/06/2025 08 HCT 24.3 (L) 07/06/2025 08 PLT 190 07/06/2025 08 NA 136 07/06/20258 K 4.0 07/06/2025447 CL 99 07/06/20258 CO2 27 07/06/2025447 BUN 64 (H) 07/06/2025447 CREATININE 3.36 (H) 07/06/2025447 CALCIUM 9.3 07/06/2025447 PHOS 3.3 07/06/2025447 IV Drips and Rate/Dose Continuous Meds[3] Safety - Before each treatment: Dialysis Machine No.: [id number] RO Machine Number: [id number] Dialyzer Lot No.: [id number] Tubing Lot Number: [id number] All Connections Secure: Yes Venous Parameters Set: Yes Arterial Parameters Set: Yes NS Bag: Yes Saline Line Double Clamped: Yes Dialyzer: Nipro Prime Volume (mL): 250 mL RO Machine Number: [id number] RO Machine Log Sheet Completed: Yes Machine Alarm Self Test: Completed, Passed (07/06/25819) Air Foam Detector: Tested, Proper Function, pH Reading Extracorporeal Circuit Tested for Integrity: Yes Machine Conductivity: 14.3 Manual Conductivity: 14 Manual Ph: 7.2 Bleach Test (Neg): Yes Bath Temperature: 36 C (96.8 F) Conductivity Meter Serial #: [id number] Machine Functioning Alarm Free? Yes Dialysis Bath: K+ (Potassium): 3 Ca+ (Calcium): 2.5 Na+ (Sodium): 137 HCO3 (Bicarb): 32 Bicarbonate Concentrate Lot No.: [id number] Acid Concentrate Lot No.: [id number] Chlorine Testing - Before each treatment and [...] ESRD (end stage renal disease) on dialysis ([facility]) [3] T [facility] 07-06-2025 Hospital course Narrative Discharge Summary [...] normal. LABS: Recent Labs 07/04/25 1634 07/05/25 34007/06/25 0448 NA 132* 132* 136 K 4.7 [...] Complexity: follow up within 7-14 calendar days (80667) [x] Severe Complexity: follow up within 7 calendar days (40864) Follow up Testing, Pending results or Referrals [...] Santos Jacobs DO Division of Hospitalist Medicine [facility] 07/06/2025, 2:54 PM [1] Past Medical History: Diagnosis Date Anxiety Depression Diabetes (HCC) Respiratory failure (HCC) documented in this encounter [facility] 07-06-2025 Note [facility] Nurse Note Patient bleeding from old IV site. Changed patient's gown, linens. Also rolled new pull pad under patient. No kinks in FMS. [facility] 07-05-2025 Consult note Associated Order (s): [...] 12/18/24), ESRD (Wednesday, Wed, Wednesday- HD at [facility]), PEG placement on 02/21 and tracheostomy placement 02/27/2025 who admits with concern for incomplete HD; did not have dialysis since of last week (6 days). Recently get a new dialysis catheter placed 07/04/25; requires dialysis prior to going back to longterm facility. Patient is nonverbal but able to [...] Steady ordered # 57 mls/hour - cyclic 4172-2501, pro-stat, run 20 hours a day, off during dialysis. Estimated Daily Nutrient Needs: Energy Requirements Based On: Kcal/kg Weight Used for Energy Requirements: [place] Weight for Energy Calculation (kg): 57 kg Total Energy Requirements (kcals/day): 25-30 kcals/kg = 5856-1114 kcals/day Weight Used for Protein Requirements: [place] Weight in Kg Used for Protein Requirements: [...] Carb Steady @ 57 mls/hour (cyclic) - 4731-7709 - run 20 hours, off during dialysis. Prostat listed - no amount listed. Water Flushes: none Current EN & Flush Order Provides: ordered Goal EN & Flush Order Provides: Nepro with Carb Steady @ 57 mls/hour x 20 hours (3162-5849), off during dialysis = 2018 kcals, 92g protein, 829 mls free H20 = 35 kcals/kg + 1.6g protein/kg IBW (57kgs). Anthropometric Measures: Height: 165.1 cm (5' 5") Current Body Weight: 105 kg (231 lb 7.7 oz) Weight Source: Bed Scale [place] Body Weight (lbs) (Calculated): 125 lbs [place] Body Weight (Kg) (Calculated): 57 kg % [place] Body Weight (Calculated): 185.2 % BMI (kg/m2) [...] Planning: Too soon to determine Millicent Mcknight RD,LD,[place] Contact: *[phone] or [facility] Chat [1] atorvastatin, 40 mg, Per [...] chloride 0.9%, 5-40 mL, IntraVENous, q12h [2] [facility] 07-05-2025 Consult note Associated Order (s): [...] 12/18/24), ESRD (Wednesday, Wed, Wednesday- HD at [facility]), PEG placement on 02/21 and tracheostomy placement 02/27/2025 who admits with concern for incomplete HD; did not have dialysis since of last week (6 days). Recently get a new dialysis catheter placed 07/04/25; requires dialysis prior to going back to longterm facility. Patient is nonverbal but able to [...] Steady ordered # 57 mls/hour - cyclic 5422-6803, pro-stat, run 20 hours a day, off during dialysis. Estimated Daily Nutrient Needs: Energy Requirements Based On: Kcal/kg Weight Used for Energy Requirements: [place] Weight for Energy Calculation (kg): 57 kg Total Energy Requirements (kcals/day): 25-30 kcals/kg = 6668-2540 kcals/day Weight Used for Protein Requirements: [place] Weight in Kg Used for Protein Requirements: [...] Carb Steady @ 57 mls/hour (cyclic) - 1934-5121 - run 20 hours, off during dialysis. Prostat listed - no amount listed. Water Flushes: none Current EN & Flush Order Provides: ordered Goal EN & Flush Order Provides: Nepro with Carb Steady @ 57 mls/hour x 20 hours (1022-1026), off during dialysis = 2018 kcals, 92g protein, 829 mls free H20 = 35 kcals/kg + 1.6g protein/kg IBW (57kgs). Anthropometric Measures: Height: 165.1 cm (5' 5") Current Body Weight: 105 kg (231 lb 7.7 oz) Weight Source: Bed Scale [place] Body Weight (lbs) (Calculated): 125 lbs [place] Body Weight (Kg) (Calculated): 57 kg % [place] Body Weight (Calculated): 185.2 % BMI (kg/m2) [...] Planning: Too soon to determine Millicent Mcknight RD,LD,[place] Contact: *[phone] or Epic Dom [1] atorvastatin, 40 mg, Per G [...] No primary care provider on file. OUTPATIENT ADMINISTRATIVE SUPPORT ASSISTANT: [facility] (Dr. Loredo) Subjective/HPI Rosa Myers is a 75 y.o. female with PMHx significant for ESRD on HD (per Wednesday through Wednesday schedule at [facility]), HTN, HLD, CHF, chronic respiratory failure [...] -- 62 13 100 % -- -- 07/05/2504 -- -- -- -- -- -- 1.651 m (5' 5") -- 07/05/25699 (!) 124/44 -- -- 63 18 100 % -- -- 07/05/2545 101/64 -- -- 61 (!) 8 100 % -- -- 07/05/25629 105/54 -- -- 61 14 100 % -- -- 07/05/2515 91/68 -- -- 65 17 100 % -- -- 07/05/2503 -- -- -- 62 -- 100 % -- -- 10/09/25 0600 (!) 117/48 -- -- 64 13 [...] -- 71 13 100 % -- -- 07/04/252305 -- -- -- 65 20 100 % [...] (H) 06/02/2025 Lab Results Component Value Date [id number] 1,032 (H) 06/02/2025 FOLATE 12.6 06/02/2025 Recent [...] HD per Wednesday through Wednesday schedule at [facility], HTN, HLD, CHF, chronic respiratory failure s/p trach/PEG, DM type 2, neuropathy, history of C. difficile colitis, anxiety, depression, morbid obesity who presented with malfunctioning of her RIJ HDTC and was admitted for dialysis following replacement of her tunneled line. Nephrology was consulted for the provision of inpatient dialysis. Plan ESRD on HD per Wednesday through Wednesday schedule at [facility] - patient typically dialyzes per a Wednesday through Wednesday schedule - will plan to dialyze per a MWF schedule while as an inpatient - will plan for a 3 hour 30 minute HD treatment tomorrow 07/06/25 as below: [id number] Na 137 K 3 Ca 2.5 HCO3 [...] Emanuel DO PATIENT NAME: Rosa Myers [facility] A DATE: July 05, 2025 TIME: 11:08 AM PAGER: [phone] OFFICE: [phone] [1] Past Medical History: Diagnosis Date Anxiety Depression Diabetes (HCC) Respiratory failure (HCC) [2] No past surgical history on file. [3] No family history on file. [4] Social History Socioeconomic History Marital status: Single Tobacco Use Smoking status: Never Passive exposure: Past Smokeless tobacco: Never Social Drivers of Health Financial Resource Strain: Patient Unable To Answer (03/08/2025) Received from [facility] Overall Financial Resource Strain (CARDIA) Difficulty of Paying Living Expenses: Patient unable to answer Food Insecurity: Patient Unable To Answer (03/08/2025) Received from [facility] Hunger Vital Sign Worried About Running Out of Food in the Last Year: Patient unable to answer Ran Out of Food in the Last Year: Patient unable to answer Transportation Needs: No Transportation Needs (06/01/2025) PRAPARE - Transportation Lack of Transportation (Medical): No Lack of Transportation (Non-Medical): No Physical Activity: Inactive (07/11/2024) Received from [facility] Exercise Vital Sign Days of Exercise per Week: 0 days Minutes of Exercise per Session: 0 min Stress: No Stress Concern Present (04/18/2025) Received from [facility] [place] of Occupational Health - Occupational Stress Questionnaire Feeling of Stress : Only a little Social Connections: Unknown (03/08/2025) Received from [facility] Social Connection and Isolation Panel [NHANES] Frequency of Communication with Friends and Family: Patient unable to answer Frequency of Social Gatherings with Friends and Family: Patient unable to answer Attends Latter-Day Services: Patient unable to answer Active Member [...] IntraVENous, q12h [8] documented in this encounter [facility] 07-05-2025 Progress note Formatting of t his note might be different from the original. Care Management Progress Note Short Medical why still here: Remains for chronic trach/peg, iHD baseline - 5d/wk, iHD today. Nephrology following/consult. Planned Discharge Disposition: Group Home/Residential Care ([facility]) Can return when medically ready, will need transportation set up. Barriers/Today we still Wait: Clinical stability, Diesel Dragline Operator recommendations (comment), Symptomatic control Length of Stay (Days): 1 GMLOS: No GMLOS Documented Case management will continue to follow for discharge planning. [facility] 07-05-2025 Progress note Formatting of t his note might be different from the original. Care Managment Initial Assessment Date: 07/05/2025 Patient Name: Rosa Myers : 1950 Patient Information Source of Information: Patient, Patient Clip Riveter Name/Contact Information: Marcell العلي [phone] Cognition/Language: Other (Comment) (trach/vent - mouths words) Permission given to speak with patient veterans employment representative/caregiver as indicated: Yes Confirmation of Payer with patient/family: Yes Payer Name: [place]: Confirmation of Primary Care Physician: Confirmed (SNF provider) Seen in last 2 years?: Yes Primary Caregiver: Other (Comment) (facility) If assistance needed, confirmed caregiver ready, willing and able to care for patient at discharge: Confirmed with: Living Arrangements Current Residence: Number of Floors Number of Entry Steps: Bed/Bath Levels: Facility: Group Home/Residental Care Facility Name: [facility] Plan to Return: Lives with: Other [...] Plan Patient expects to be discharged to: [facility] Discharge Planning Actions: Continue to follow, Jail Facility referral indicated [place] of choice: [place] of choice discussed Patient's Choice Rights and [employer] and Collaborative Relationships Disclosed as Indicated for Post-Acute Care: Yes Interdisciplinary Team Engagement: Social Work Referral for: Additional Information: Initial Assessment: Chart reviewed. IA/HRA completed. CM spoke with patient at bedside. Appropriate PPE worn. Patient trach to vent, mouths words and gestures appropriately. Patient from [facility] - LTC bedhold. Has insurance on EHR. PCP at [facility]. Patient requested CM to call ada Faith to discuss discharge planning. CM called Marcell (son) [phone] regarding discharge planning. Introduced myself and role. Discussed LTACH vs SNF and LTC facility. Discussed several recent admissions to hospital. Marcell wishes for patient to return to [facility]. CM tasked APARTMENT HOTEL MANAGER to send referral via careport. Confirmed patient is LTC bedhold, iHD mon to [facility] at facility. Will need transportation to facility. Case management will continue to follow for discharge planning. [facility] 07-05-2025 Hospital Discharg e instructions Santos Jacobs, DO - 07/05/2025 11:38 AM EDT Images from the original note were not included. Continuity of Care Form Patient Name: Rosa Myers : 1950 Admit date: 07/04/2025 Discharge date: Code Status Order: Full Code Advance Directives: N Admitting Physician: Griffin Peters MD PCP: No primary care provider on file. Discharging Nurse: Discharging Hospital Unit/Room#: T2-217/T2217 A Discharging Unit Phone Number: Emergency Contact: Extended Emergency Contact Information Primary Emergency Contact: Marcell Myers Mobile Relation: Son Bearingizer needed? No Past Surgical History: No past [...] 5.8 oz) Mental Status: {TERRA Patient Mental Status:84872} IV Access: {TERRA IV Access:25925} Nursing Mobility/ADLs: Walking {OBED ADL:::"Independent"} Transfer {OBED ADL:::"Independent"} Bathing {OBED ADL:::"Independent"} Dressing {OBED ADL:::"Independent"} Toileting {OBED ADL:::"Independent"} Feeding {OBED ADL:::"Independent"} Yard Labor Supervisor {OBED ADL:36751::"Independent"} Med Delivery {yes/no:23338} Wound Care Documentation and Therapy: Elimination: Continence: Bowel: {yes/no:72887} Bladder: {yes/no:68418} Urinary Catheter: {TERRA Urinary Catheter:50140} Colostomy/Ileostomy/Ileal Conduit: {YES / NO:} Date of Last BM: Intake/Output Summary (Last 24 hours) at 07/05/2025 1137 Last data filed at 07/05/2025 0815 Gross per 24 hour Intake 300 ml Output 200 ml Net 100 ml I/O last 3 completed shifts: In: 0 (0 mL/kg) Out: 200 (1.9 mL/kg) [Stool:200] Weight: 105.5 kg Safety Concerns: {TERRA Safety Concerns:20957} Impairments/Disabilities: {TERRA Impairments/Disabilities:28247} Nutrition Therapy: Current Nutrition Therapy: {TERRA Diet List:23136} Routes of Feeding: {routes of feedin} Liquids: {liquid consistency:21059} Daily Fluid Restriction: {daily fluid restriction:44081} Last Modified Barium Swallow with Video (Video Swallowing Test): {done not done:53820} Treatments at the Time of Hospital Discharge: Respiratory Treatments: Oxygen Therapy: {Therapy; copd oxygen:38434} Ventilator: {TERRA Ventilator:89769} Rehab Therapies: {GEN THERAPY DISCIPLINE SCAL:1240614} Weight Bearing Status/Restrictions: {POD WEIGHT BEARIN} Other Medical Equipment (for information only, NOT a DME order): {Assistive Devices DME:31241} Other Treatments: Patient's personal belongings (please select all that are sent with patient): {TERRA Patient Belongings:60470} RN SIGNATURE: {E-signature:02553} CASE MANAGEMENT/SOCIAL WORK SECTION Inpatient Status Date: 07/04/2025 Discharging to Facility/ Agency [place] [address] Dialysis Facility (if applicable) Name: Address: Dialysis Schedule: Phone: Fax: Superintendent Police/Asphalt Dauber signature: ICIAN SECTION Name: Rosa Myers Prognosis: [...] to a nursing facility directly from an [facility] or a unit of a [facility] that is not operated by or licensed by [facility] under section 5119.14 or 5160-3-15.1 5 The individual requires the level of services provided by a nursing facility for the condition for which he or she was treated in the hospital and, Physician Certification: I certify the above information and transfer of Rosa Myers is necessary for the continuing treatment of the diagnosis listed and that she requires longterm facility for greater than 30 days. Update Admission H&P: No change in H&P PHYSICIAN SIGNATURE: documented in this encounter [facility] 07-05-2025 Consult note Associated Order (s): IP CONSULT TO NEPHROLOGY Images from the original note were not included. NEPHROLOGY CONSULT NOTE PATIENT NAME: Rosa Myers [facility]: T2217/[facility] A SERVICE DATE: 07/05/2025 SERVICE TIME: 11:08 AM LENGTH OF STAY: 1 day(s) REFERRING PHYSICIAN: Santos Jacobs DO PRIMARY CARE PHYSICIAN: No primary care provider on file. OUTPATIENT ADMINISTRATIVE SUPPORT ASSISTANT: [facility] (Dr. Loredo) Subjective/HPI Rosa Myers is a 75 y.o. female with PMHx significant for ESRD on HD (per Wednesday through Wednesday schedule at [facility]), HTN, HLD, CHF, chronic respiratory failure [...] -- 62 13 100 % -- -- 07/05/2504 -- -- -- -- -- -- 1.651 [...] (H) 06/02/2025 Lab Results Component Value Date [id number] 1,032 (H) 06/02/2025 FOLATE 12.6 06/02/2025 Recent [...] HD per Wednesday through Wednesday schedule at [facility], HTN, HLD, CHF, chronic respiratory failure s/p trach/PEG, DM type 2, neuropathy, history of C. difficile colitis, anxiety, depression, morbid obesity who presented with malfunctioning of her [place] HDTC and was admitted for dialysis following replacement of her tunneled line. Nephrology was consulted for the provision of inpatient dialysis. Plan ESRD on HD per Wednesday through Wednesday schedule at [facility] - patient typically dialyzes per a Wednesday through Wednesday schedule - will plan to dialyze per a [facility] schedule while as an inpatient - will plan for a 3 hour 30 minute HD treatment tomorrow 07/06/25 as below: [id number] Na 137 K 3 Ca 2.5 HCO3 [...] Emanuel DO PATIENT NAME: Rosa Myers ROOM: [facility]/T2 A DATE: July 05, 2025 TIME: 11:08 AM PAGER: [phone] OFFICE: [phone] [1] Past Medical History: Diagnosis Date Anxiety Depression Diabetes (HCC) Respiratory failure (HCC) [2] No past surgical history on file. [3] No family history on file. [4] Social History Socioeconomic History Marital status: Single Tobacco Use Smoking status: Never Passive exposure: Past Smokeless tobacco: Never Social Drivers of Health Financial Resource Strain: Patient Unable To Answer (03/08/2025) Received from [facility] Overall Financial Resource Strain (CARDIA) Difficulty of Paying Living Expenses: Patient unable to answer Food Insecurity: Patient Unable To Answer (03/08/2025) Received from [facility] Hunger Vital Sign Worried About Running Out of Food in the Last Year: Patient unable to answer Ran Out of Food in the Last Year: Patient unable to answer Transportation Needs: No Transportation Needs (06/01/2025) PRAPARE - Transportation Lack of Transportation (Medical): No Lack of Transportation (Non-Medical): No Physical Activity: Inactive (07/11/2024) Received from [facility] Exercise Vital Sign Days of Exercise per Week: 0 days Minutes of Exercise per Session: 0 min Stress: No Stress Concern Present (04/18/2025) Received from [facility] [place] of Occupational Health - Occupational Stress Questionnaire Feeling of Stress : Only a little Social Connections: Unknown (03/08/2025) Received from [facility] Social Connection and Isolation Panel [NHANES] Frequency of Communication with Friends and Family: Patient unable to answer Frequency of Social Gatherings with Friends and Family: Patient unable to answer Attends Latter-Day Services: Patient unable to answer Active Member [...] chloride 0.9%, 5-40 mL, IntraVENous, q12h [8] [facility] 07-05-2025 Note Return referral plac ed to [facility] via Careport per TCC request. Await review and response regarding ability to accept. TCC notified. [facility] 07-05-2025 Progress note Formatting of t his note might be different from the original. Return referral placed to [facility] via Careport per TCC request. Await review and response regarding ability to accept. TCC notified. [facility] 07-05-2025 Nurse Note Patient Name: Rosa Myers Patient : 1950 Acct: [id number] Date of Admission: 07/04/2025 Room/Bed: T2-217/T2-217 A [...] Lab Results Component Value Date/Time WBC 6.8 07/05/2025 0341 HGB 7.4 (L) 07/05/2025340 HCT 23.4 (L) 07/05/2025340 PLT 179 07/05/2025340 NA 132 (L) 07/05/2025340 K 4.2 07/05/2025340 CL 92 (L) 07/05/2025340 CO2 29 07/05/2025340 BUN 125 (H) 07/05/2025340 CREATININE 5.26 (H) 07/05/2025340 CALCIUM 9.7 07/05/2025340 IV Drips and Rate/Dose Continuous Meds[3] Safety - Before each treatment: Dialysis Machine No.: [id number] RO Machine Number: [id number] Dialyzer Lot No.: [id number] Tubing Lot Number: [id number] All Connections Secure: Yes Venous Parameters Set: Yes Arterial Parameters Set: Yes NS Bag: Yes Saline Line Double Clamped: Yes Dialyzer: Nipro Prime Volume (mL): 200 mL RO Machine Number: [id number] RO Machine Log Sheet Completed: Yes Machine Alarm Self Test: Completed, Passed (The machine passed all tests at 0417.) (07/05/25433) Air Foam Detector: Tested, Proper Function Extracorporeal Circuit Tested for Integrity: Yes Machine Conductivity: 14.3 Manual Conductivity: 14.4 Manual Ph: 7.2 Bleach Test (Neg): Yes Bath Temperature: 36 C (96.8 F) Conductivity Meter Serial #: [id number] Machine Functioning Alarm Free? Yes Dialysis Bath: K+ (Potassium): 3 Ca+ (Calcium): 2.5 Na+ (Sodium): 137 HCO3 (Bicarb): 32 Chlorine Testing - Before each treatment and every 4 hours: Time On: 0510 Time Off: 08 Treatment Goal: 1L Weight Height: 165.1 cm [...] -- 65 17 100 % -- -- 07/05/25602 -- -- -- 62 -- 100 % -- -- 07/05/25599 (!) 117/48 -- -- 64 13 100 % -- 105 kg (232 lb 9.4 oz) 07/05/25544 (!) 111/47 -- -- 63 (!) 5 100 % -- -- 07/05/25529 109/52 -- -- 62 (!) 6 100 % -- -- 07/05/25514 110/51 -- -- 63 (!) 10 100 % -- -- 10/09/25 0510 105/51 -- -- 61 (!) 8 [...] Anemia Anemia, unspecified type Moderate malnutrition (CMS/HCC) ([facility]) Acute metabolic encephalopathy Anxiety and depression Debility ESRD (end stage renal disease) on dialysis ([facility]) [3] T [facility] 07-05-2025 Nurse Note This RN reached [...] order to Dr. Powell and he confirmed. [facility] 07-04-2025 Emergency department Note Report given to RYNE Browning on T2 ICU T [facility] 07-04-2025 Emergency department Note Report given to RYNE Browning on T2 ICU Patient incontinent of stool. Cleaned and repositioned to her R side with wedges. Kangaroo pump requested as well as PEG nutrition EMERGENCY DEPARTMENT ENCOUNTER Pt Name: Rosa Myers Birthdate 1950 Date of evaluation: 07/04/2025 ED Provider: Re Maciel MD CHIEF COMPLAINT Chief Complaint Patient presents with Other Pt here from [facility] to have dialysis catheter replaced. [...] Reach out to Dr. Powell who is restrictive preparation operator today for [employer] and informed him of the patient. He will help arrange dialysis before patient goes back to facility. However unable to get dialysis while in the ED. Will need admission. Admitted to [facility] of the patient get dialysis and afterwards will be appropriate for discharge back to her longterm facility. ED Course as of 07/04/251910Jul 04, 2025 1731 Messaged [facility] [place] [TC] ED Course User Index [TC] Re Maciel MD Diagnoses as of 07/04/251910 ESRD (end stage renal disease) on dialysis (FORMERLY [facility]) ED Medications managed: Medications atorvastatin (Lipitor) tablet [...] ESRD (end stage renal disease) on dialysis (FORMERLY [facility]) DISPOSITION Admit 07/04/2025 05:51:48 PM PATIENT REFERRED [...] Patient Unable To Answer (03/08/2025) Received from [facility] Overall Financial Resource Strain (CARDIA) Difficulty of Paying Living Expenses: Patient unable to answer Food Insecurity: Patient Unable To Answer (03/08/2025) Received from [facility] Hunger Vital Sign Worried About Running Out of Food in the Last Year: Patient unable to answer Ran Out of Food in the Last Year: Patient unable to answer Transportation Needs: No Transportation Needs (06/01/2025) PRAPARE - Transportation Lack of Transportation (Medical): No Lack of Transportation (Non-Medical): No Physical Activity: Inactive (07/11/2024) Received from [facility] Exercise Vital Sign Days of Exercise per Week: 0 days Minutes of Exercise per Session: 0 min Stress: No Stress Concern Present (04/18/2025) Received from [facility] of Occupational Health - Occupational Stress Questionnaire Feeling of Stress : Only a little Social Connections: Unknown (03/08/2025) Received from [facility] Medical Social Connection and Isolation Panel [NHANES] Frequency of Communication with Friends and Family: Patient unable to answer Frequency of Social Gatherings with Friends and Family: Patient unable to answer Attends Latter-Day Services: Patient unable to answer Active Member [...] Violence - At Risk (03/07/2025) Received from [facility] Domestic Abuse Assessment Do you feel [...] 2:58 PM EDT documented in this encounter [facility] 07-04-2025 Emergency department Note Patient incontinent of stool. Cleaned and repositioned to her R side with wedges. [facility] 07-04-2025 Emergency department Note Kangaroo pump requested as well as PEG nutrition [facility] 07-04-2025 History and physical note Attending History and Physical Admit Date: 07/04/2025 PCP: No primary care provider on file. CHIEF COMPLAINT: Dialysis Reason for Admission: Dialysis History Obtained From: patient and chart review HISTORY OF PRESENT ILLNESS: Rosa is a 75 y.o. female with past medical history below who presents with chief complaint listed above. Patient resides in a longterm facility. Recently get a new dialysis catheter placed today. She has not had dialysis since of last week, 6 days. Patient needing dialysis prior to going back to longterm facility. She is prevented, treatment and has [...] Patient Unable To Answer (03/08/2025) Received from [facility] Overall Financial Resource Strain (CARDIA) Difficulty of Paying Living Expenses: Patient unable to answer Food Insecurity: Patient Unable To Answer (03/08/2025) Received from [facility] Medical Hunger Vital Sign Worried About Running Out of Food in the Last Year: Patient unable to answer Ran Out of Food in the Last Year: Patient unable to answer Transportation Needs: No Transportation Needs (06/01/2025) PRAPARE - Transportation Lack of Transportation (Medical): No Lack of Transportation (Non-Medical): No Physical Activity: Inactive (07/11/2024) Received from [facility] Exercise Vital Sign Days of Exercise per Week: 0 days Minutes of Exercise per Session: 0 min Stress: No Stress Concern Present (04/18/2025) Received from [facility] Occupational Health - Occupational Stress Questionnaire Feeling of Stress : Only a little Social Connections: Unknown (03/08/2025) Received from [facility] Medical Social Connection and Isolation Panel [NHANES] Frequency of Communication with Friends and Family: Patient unable to answer Frequency of Social Gatherings with Friends and Family: Patient unable to answer Attends Latter-Day Services: Patient unable to answer Active Member [...] Violence - At Risk (03/07/2025) Received from [facility] Domestic Abuse Assessment Do you feel safe in your relationships at home?: Yes Physical Abuse: Denies [facility] Domestic Abuse - Type of Abuse: Not on file [facility] Domestic Abuse - Time Frame: Not on file [facility] Domestic Abuse - Signs and Symptoms: Not [...] Discharge - Date -07/05/2025 - Location - [facility] (Non-Skilled) - Pending the following -dialysis Total time spent (which include face to face and non face to face encounters) : 75 minutes. Extended Emergency Contact Information Primary Emergency Contact: Marcell Myers Mobile Relation: Son Bearingizer needed? No [employer]ANNING Rosa Myers : 1950 Primary Care Physician: No primary care provider on file. The patient and/or family/surrogate voluntarily agreed to participate in ACP services. Patient s cognitive capacity: Alert and oriented x 2 Code Status: [X] [FULL CODE - Continue all advanced life support: CPR,intubation,invasive procedures] [_] [DNR-CCA - DO NOT do CPR, intubation] [_] [DNR-COMMUNICATIONS EQUIPMENT OPERATOR - Comfort care only] [_] DNR form [was/was not] signed Full Code Peter Sullivan APRN - [facility] Division of Hospitalist Medicine [1] Past Medical [...] Peters MD at 07/04/2025 7:08 PM EDT [facility] [employer] Work Phone: 07-04-2025 Note [facility] 07-04-2025 History and physical note Attending History and Physical Admit Date: 07/04/2025 PCP: No primary care provider on file. CHIEF COMPLAINT: Dialysis Reason for Admission: Dialysis History Obtained From: patient and chart review HISTORY OF PRESENT ILLNESS: Rosa is a 75 y.o. female with past medical history below who presents with chief complaint listed above. Patient resides in a longterm facility. Recently get a new dialysis catheter placed today. She has not had dialysis since of last week, 6 days. Patient needing dialysis prior to going back to longterm facility. She is prevented, treatment and has [...] Patient Unable To Answer (03/08/2025) Received from [facility] Overall Financial Resource Strain (CARDIA) Difficulty of Paying Living Expenses: Patient unable to answer Food Insecurity: Patient Unable To Answer (03/08/2025) Received from [facility] Medical Hunger Vital Sign Worried About Running Out of Food in the Last Year: Patient unable to answer Ran Out of Food in the Last Year: Patient unable to answer Transportation Needs: No Transportation Needs (06/01/2025) PRAPARE - Transportation Lack of Transportation (Medical): No Lack of Transportation (Non-Medical): No Physical Activity: Inactive (07/11/2024) Received from [facility] Exercise Vital Sign Days of Exercise per Week: 0 days Minutes of Exercise per Session: 0 min Stress: No Stress Concern Present (04/18/2025) Received from [facility] Medical [facility] of Occupational Health - Occupational Stress Questionnaire Feeling of Stress : Only a little Social Connections: Unknown (03/08/2025) Received from [facility] Social Connection and Isolation Panel [NHANES] Frequency of Communication with Friends and Family: Patient unable to answer Frequency of Social Gatherings with Friends and Family: Patient unable to answer Attends Latter-Day Services: Patient unable to answer Active Member [...] Violence - At Risk (03/07/2025) Received from [facility] Domestic Abuse Assessment Do you feel safe in your relationships at home?: Yes Physical Abuse: Denies [facility] Domestic Abuse - Type of Abuse: Not on file [facility] Domestic Abuse - Time Frame: Not on file [facility] Domestic Abuse - Signs and Symptoms: [...] Discharge - Date -07/05/2025 - Location - [facility] (Non-Skilled) - Pending the following -dialysis Total time spent (which include face to face and non face to face encounters) : 75 minutes. Extended Emergency Contact Information Primary Emergency Contact: Marcell Myers Mobile Relation: Son Bearingizer needed? No [employer]ED CARE [employer]ANNING Rosa Myers : 1950 Primary Care Physician: No primary care provider on file. The patient and/or family/surrogate voluntarily agreed to participate in ACP services. Patient s cognitive capacity: Alert and oriented x 2 Code Status: [X] [FULL CODE - Continue all advanced life support: CPR,intubation,invasive procedures] [_] [DNR-CCA - DO NOT do CPR, intubation] [_] [DNR-COMMUNICATIONS EQUIPMENT OPERATOR - Comfort care only] [_] DNR form [was/was not] signed Full Code Peter Sullivan APRN - [facility] Division of Hospitalist Medicine [1] Past Medical [...] 7:08 PM EDT documented in this encounter [facility] 07-04-2025 Physician Emergency department Note EMERGENCY DEPARTMENT ENCOUNTER Pt Name: Rosa Myers Birthdate 1950 Date of evaluation: 07/04/2025 ED Provider: Re Maciel MD CHIEF COMPLAINT Chief Complaint Patient presents with Other Pt here from [facility] facility to have dialysis catheter replaced. Procedure [...] Reach out to Dr. Powell who is restrictive preparation operator today for [employer] and informed him of the patient. He will help arrange dialysis before patient goes back to facility. However unable to get dialysis while in the ED. Will need admission. Admitted to [facility] of the patient get dialysis and afterwards will be appropriate for discharge back to her longterm facility. ED Course as of 07/04/251910Jul 04, 2025 1731 Messaged [employer] for admission [TC] ED Course User Index [...] Patient Unable To Answer (03/08/2025) Received from [facility] Overall Financial Resource Strain (CARDIA) Difficulty of Paying Living Expenses: Patient unable to answer Food Insecurity: Patient Unable To Answer (03/08/2025) Received from [facility] Hunger Vital Sign Worried About Running Out of Food in the Last Year: Patient unable to answer Ran Out of Food in the Last Year: Patient unable to answer Transportation Needs: No Transportation Needs (06/01/2025) PRAPARE - Transportation Lack of Transportation (Medical): No Lack of Transportation (Non-Medical): No Physical Activity: Inactive (07/11/2024) Received from [facility] Exercise Vital Sign Days of Exercise per Week: 0 days Minutes of Exercise per Session: 0 min Stress: No Stress Concern Present (04/18/2025) Received from [facility] - Occupational Stress Questionnaire Feeling of Stress : Only a little Social Connections: Unknown (03/08/2025) Received from [facility] Social Connection and Isolation Panel [NHANES] Frequency of Communication with Friends and Family: Patient unable to answer Frequency of Social Gatherings with Friends and Family: Patient unable to answer Attends Latter-Day Services: Patient unable to answer Active Member [...] Lyon DO at 07/06/2025 2:58 PM EDT [facility] 07-04-2025 Nurse Note Pt transported to ER 37 with RT. LICENSED INVESTMENT SALES ASSISTANT aware of arrival [facility] 07-04-2025 Miscellaneous Notes Pt transported to ER 37 with RT. LICENSED INVESTMENT SALES ASSISTANT aware of arrival Procedure finished per Samantha / [facility] pt is not allowed to return to ECF until has dialysis at hospital ( this was not known or conveyed to us until intra/post procedure). Initially they stated pt to go to [facility] for dialysis when I spoke with physicians transport they refuse this transport trip (per dispatcher Lucia and his retail manager Tomy). Spoke again with Samantha at [facility] and they now want her to go to our ER for emergent dialysis as they state it has been 6 days since last dialysis. Spoke with our ER charge master analyst Krista and went over this situation and need for ER bed for pt - none available at present time and states she will call back when one available. Pt waiting at this time in holding area spot 2 and IR charge nurse updated Unable to place IV - charge master analyst notified. Limited History per paperwork brought - updated LOOP TACKER Melvi from anesthesia. RT Tamar was at bedside and switched pt from physicians transport vent to hers documented in this encounter [facility] 07-04-2025 Note Pt tolerated procedu re well. Tunn hd cath exchanged. Transfer pt to IR recovery. [facility] 07-04-2025 Nurse Note Pt tolerated procedure well. Tunn hd cath exchanged. Transfer pt to IR recovery. [facility] 07-04-2025 Nurse Note Pt tolerated procedure [...] for the procedure. documented in this encounter [facility] 07-04-2025 Nurse Note Procedure finished per Samantha / staff at [facility] pt is not allowed to return to ECF until has dialysis at hospital ( this was not known or conveyed to us until intra/post procedure). Initially they stated pt to go to [facility] for dialysis when I spoke with [facility] transport they refuse this transport trip (per dispatcher Lucia and his retail manager Tomy). Spoke again with Samantha at [facility] and they now want her to go to our ER for emergent dialysis as they state it has been 6 days since last dialysis. Spoke with our ER charge master analyst Hyacinth and went over this situation and need for ER bed for pt - none available at present time and states she will call back when one available. Pt waiting at this time in holding area spot 2 and IR charge nurse updated [facility] 07-04-2025 Nurse Note Tunneled hd cath removed. [facility] 07-04-2025 Nurse Note IR Procedures: Rosa is here from a ECF for a tunneled hd cath exchange . Pt has verbalized understanding of the procedural instructions. Dr. Newby has spoken to pt. History, allergies, medications and lab results reviewed. Informed consent has been signed. Pt is on a monitor. Patient ready for the procedure. [facility] 07-04-2025 Note [facility] 07-04-[address] IV - charge master analyst notified. Limited History per paperwork brought - updated LOOP TACKER Melvi from anesthesia. RT Tamar was at bedside and switched pt from physicians transport vent to hers [facility] 07-03-2025 Hospital Discharg e instructions Re Maciel MD - 07/03/2025 5:03 PM EDT IR will do the dialysis port replacement outpatient. Her facility would need to get in contact with one of our coordinators to set up an appointment. Given the situation, they would get her in within the next day or 2. They need to call [phone] and speak with Roxie or Joseph. They can leave a voicemail if they're not in office and they will return the call during business hours. documented in this encounter [facility] 07-03-2025 Emergency department Note EMERGENCY DEPARTMENT ENCOUNTER Pt Name: Rosa Myers Birthdate 1950 Date of evaluation: 07/03/2025 ED Provider: Armando Redd DO CHIEF COMPLAINT Chief Complaint Patient presents with Other Patient presents through triage from [facility], staff states that patient needs new [...] get a course of dialysis today. [TC] 5070 Dr. Redd talked to nephrology and they [...] Medicine Provider Armando Redd DO Resident 07/03/25 3455 [1] No past medical history on file. [2] No past surgical history on file. [3] No family history on file. [4] Social History Socioeconomic History Marital status: Single Tobacco Use Smoking status: Never Passive exposure: Past Smokeless tobacco: Never Social Drivers of Health Financial Resource Strain: Patient Unable To Answer (03/08/2025) Received from [facility] Overall Financial Resource Strain (CARDIA) Difficulty of Paying Living Expenses: Patient unable to answer Food Insecurity: Patient Unable To Answer (03/08/2025) Received from [facility] Hunger Vital Sign Worried About Running Out of Food in the Last Year: Patient unable to answer Ran Out of Food in the Last Year: Patient unable to answer Transportation Needs: No Transportation Needs (06/01/2025) PRAPARE - Transportation Lack of Transportation (Medical): No Lack of Transportation (Non-Medical): No Physical Activity: Inactive (07/11/2024) Received from [facility] Exercise Vital Sign Days of Exercise per Week: 0 days Minutes of Exercise per Session: 0 min Stress: No Stress Concern Present (04/18/2025) Received from [facility] - Occupational Stress Questionnaire Feeling of Stress : Only a little Social Connections: Unknown (03/08/2025) Received from [facility] Medical Social Connection and Isolation Panel [NHANES] Frequency of Communication with Friends and Family: Patient unable to answer Frequency of Social Gatherings with Friends and Family: Patient unable to answer Attends Latter-Day Services: Patient unable to answer Active Member [...] in the Last Year: No Cosigned by Gearrdo Felder MD at 07/03/2025 4:04 PM EDT [...] discussed the patient's management with other clinicians: Diesel Dragline Operator nephrology and interventional radiology All diagnostic, treatment, [...] for clarification.) Gerardo Felder MD Acute Care [facility] Gerardo Felder MD 07/03/25 1607 documented in this encounter [facility] 07-03-2025 Physician Emergency department Note EMERGENCY DEPARTMENT ENCOUNTER Pt Name: Rosa Myers Birthdate 1950 Date of evaluation: 07/03/2025 ED Provider: Armando Redd DO CHIEF COMPLAINT Chief Complaint Patient presents with Other Patient presents through triage from [facility], staff states that patient needs new [...] get a course of dialysis today. [TC] 4520 Dr. Redd talked to nephrology and they [...] Medicine Provider Armando Redd DO Resident 07/03/25 8951 [1] No past medical history on file. [2] No past surgical history on file. [3] No family history on file. [4] Social History Socioeconomic History Marital status: Single Tobacco Use Smoking status: Never Passive exposure: Past Smokeless tobacco: Never Social Drivers of Health Financial Resource Strain: Patient Unable To Answer (03/08/2025) Received from [facility] Overall Financial Resource Strain (CARDIA) Difficulty of Paying Living Expenses: Patient unable to answer Food Insecurity: Patient Unable To Answer (03/08/2025) Received from [facility] Hunger Vital Sign Worried About Running Out of Food in the Last Year: Patient unable to answer Ran Out of Food in the Last Year: Patient unable to answer Transportation Needs: No Transportation Needs (06/01/2025) PRAPARE - Transportation Lack of Transportation (Medical): No Lack of Transportation (Non-Medical): No Physical Activity: Inactive (07/11/2024) Received from [facility] Exercise Vital Sign Days of Exercise per Week: 0 days Minutes of Exercise per Session: 0 min Stress: No Stress Concern Present (04/18/2025) Received from [facility] - Occupational Stress Questionnaire Feeling of Stress : Only a little Social Connections: Unknown (03/08/2025) Received from [facility] Social Connection and Isolation Panel [NHANES] Frequency of Communication with Friends and Family: Patient unable to answer Frequency of Social Gatherings with Friends and Family: Patient unable to answer Attends Latter-Day Services: Patient unable to answer Active Member [...] Felder MD at 07/03/2025 4:04 PM EDT [email or web address] Phone: 07-03-2025 Physician Emergency department Note Emergency [...] discussed the patient's management with other clinicians: Diesel Dragline Operator nephrology and interventional radiology All diagnostic, treatment, [...] dictating provider for clarification.) Gerardo Felder MD [facility] Gerardo Felder MD 07/03/25 1607 [facility] 07-02-2025 Emergency department Note Discharge discussed with transport at this time. Patient leaves in stable condition. IV removed, gauze and tape placed over insertion site. [facility] 07-02-2025 Emergency department Note Discharge discussed with transport at this time. Patient leaves in stable condition. IV removed, gauze and tape placed over insertion site. apparatus engineering technologist at bedside - reports no issues flushing and pulling from catheter. EMERGENCY DEPARTMENT ENCOUNTER Pt Name: Rosa Myers Birthdate 1950 Date of evaluation: 07/02/2025 ED Provider: Re Maciel MD CHIEF COMPLAINT Chief Complaint Patient presents with Vascular Access Problem Pt arrives to ED via [facility] from [facility] for a clogged dialysis catheter. HISTORY OF PRESENT ILLNESS (Location/Symptom, Timing/Onset, Context/Setting, Quality, Duration, Modifying Factors, Severity) Note limiting factors. I wore appropriate PPE for the entirety of this encounter. HPI Rosa Myers is a 75 y.o. who presents to the emergency department for vascular access problem. Patient is coming in from [facility] for clogged dialysis catheter. Was brought in [...] Response: Oriented Best Motor Response: Follows commands [place] Coma Scale Score: 15 PHYSICAL EXAM ED [...] Patient Unable To Answer (03/08/2025) Received from [facility] Overall Financial Resource Strain (CARDIA) Difficulty of Paying Living Expenses: Patient unable to answer Food Insecurity: Patient Unable To Answer (03/08/2025) Received from [facility] Hunger Vital Sign Worried About Running Out of Food in the Last Year: Patient unable to answer Ran Out of Food in the Last Year: Patient unable to answer Transportation Needs: No Transportation Needs (06/01/2025) PRAPARE - Transportation Lack of Transportation (Medical): No Lack of Transportation (Non-Medical): No Physical Activity: Inactive (07/11/2024) [facility] [facility] Exercise Vital Sign Days of Exercise per Week: 0 days Minutes of Exercise per Session: 0 min Stress: No Stress Concern Present (04/18/2025) Received from [facility] of Occupational Health - Occupational Stress Questionnaire Feeling of Stress : Only a little Social Connections: Unknown (03/08/2025) Received from [facility] Medical Social Connection and Isolation Panel [NHANES] Frequency of Communication with Friends and Family: Patient unable to answer Frequency of Social Gatherings with Friends and Family: Patient unable to answer Attends Latter-Day Services: Patient unable to answer Active Member [...] Violence - At Risk (03/07/2025) Received from [facility] Medical Domestic Abuse Assessment Do you feel [...] 07/02/2025 7:23 PM EDT Emergency Department Encounter [facility] EMERGENCY DEPT Patient: Rosa Myers : 1950 [...] was contacted and they did send the technician support engineer down to evaluate the line. It was [...] Rand DO 07/02/251925 documented in this encounter [facility] 07-02-2025 Hospital Discharg e instructions Re Maciel MD - 07/02/2025 5:23 PM EDT Thank you for visiting us at [facility] Emergency Department. You were seen today for CLOGGED DIALYSIS PORT. Our dialysis nurses were able to evaluate the port. The port flushes and draws well. At this time we feel that you are safe to go home. Please follow-up with your primary care provider within the next week. documented in this encounter [facility] 07-02-2025 Emergency department Note apparatus engineering technologist at bedside - reports no issues flushing and pulling from catheter. [facility] 07-02-2025 Physician Emergency department Note EMERGENCY DEPARTMENT ENCOUNTER Pt Name: Rosa Myers Birthdate 1950 Date of evaluation: 07/02/2025 ED Provider: Re Maciel MD CHIEF COMPLAINT Chief Complaint Patient presents with Vascular Access Problem Pt arrives to ED via [facility] from [facility] for a clogged dialysis catheter. HISTORY OF PRESENT ILLNESS (Location/Symptom, Timing/Onset, Context/Setting, Quality, Duration, Modifying Factors, Severity) Note limiting factors. I wore appropriate PPE for the entirety of this encounter. HPI Rosa Myers is a 75 y.o. who presents to the emergency department for vascular access problem. Patient is coming in from [facility] for clogged dialysis catheter. Was brought in [...] Response: Oriented Best Motor Response: Follows commands [place] Coma Scale Score: 15 PHYSICAL EXAM ED [...] Patient Unable To Answer (03/08/2025) Received from [facility] Medical Overall Financial Resource Strain (CARDIA) Difficulty of Paying Living Expenses: Patient unable to answer Food Insecurity: Patient Unable To Answer (03/08/2025) Received from [facility] Medical Hunger Vital Sign Worried About Running Out of Food in the Last Year: Patient unable to answer Ran Out of Food in the Last Year: Patient unable to answer Transportation Needs: No Transportation Needs (06/01/2025) PRAPARE - Transportation Lack of Transportation (Medical): No Lack of Transportation (Non-Medical): No Physical Activity: Inactive (07/11/2024) Received from [facility] Exercise Vital Sign Days of Exercise per Week: 0 days Minutes of Exercise per Session: 0 min Stress: No Stress Concern Present (04/18/2025) Received from [facility] of Occupational Health - Occupational Stress Questionnaire Feeling of Stress : Only a little Social Connections: Unknown (03/08/2025) Received from [facility] Medical Social Connection and Isolation Panel [NHANES] Frequency of Communication with Friends and Family: Patient unable to answer Frequency of Social Gatherings with Friends and Family: Patient unable to answer Attends Latter-Day Services: Patient unable to answer Active Member [...] Violence - At Risk (03/07/2025) Received from [facility] Medical Domestic Abuse Assessment Do you feel [...] Last Year: No Re Maciel MD Resident 10/06/25 1813 Cosigned by Klever Rand DO at 07/02/2025 7:23 PM EDT [facility] 07-02-2025 Physician Emergency department Note Emergency Department Encounter [facility] EMERGENCY DEPT Patient: Rosa Myers : 1950 [...] was contacted and they did send the technician support engineer down to evaluate the line. It was [...] [employer] Klever Rand DO 07/02/251925 [email or web address] Phone: 06-21-2025 History of Presen t illness Narrative [facility] Nephrology Progress Note Subjective/ 75 y.o. year old female who we are seeing in consultation for ESRD and management of HD. Follows with Dr. Loredo and an outpatient HD schedule M- at [facility]. 06/06: TDC removed for suspicion of [...] hemodialysis RECOMMENDATIONS: - HD schedule M-F at [facility] [place], follows with Dr. Loredo. Will maintain MWF [...] from the original note were not included. [facility], Pulmonary Medicine [address] [place] [id number] Patient - Rosa Myers, Age - 75 y.o. - 1950 Room Number - 222-04/222-04 A Consulting - Sharyn Amaya MD Primary Care Physician - [facility] file[id number] Date of Admission - 06/01/2025 10:53 AM Hospital Day - 20 Problem List[1] Chief Complaint: Anemia Rosa Myers [...] 18.2* 18.5* 17.9* BMP: Recent Labs 06/19/25 0629 06/20/25 0506 06/21/25 [...] Discharge planning: Stable to discharge back to [facility] from pulmonary standpoint. Case discussed with [...] Raine Etienne MD, 3.125 mg at 06/21/25 08 cefepime (Maxipime) 1,000 mg in sodium chloride [...] day on Wednesday, Mi Singh APRN - [employer] SERVICE TECHNICIAN, 2,600 Units at 06/20/25 0904 FLUoxetine (PROzac) [...] Units, IntraCATHeter, PRN, Mi Singh APRN - [employer] SERVICE TECHNICIAN, 1,800 Units at 06/20/25 1302 heparin injection 1,200-2,000 Units, 1,200-2,000 Units, IntraCATHeter, PRN, Mi Singh APRN - [employer] SERVICE TECHNICIAN, 1,700 Units at 06/20/25 1301 heparin injection [...] 3 mL, 3 mL, Nebulization, TID, Neelima Hanks, RENITA - [employer] SERVICE TECHNICIAN, 3 mL at 06/21/25 0830 LORazepam (Ativan) tablet 0.25 mg, 0.25 mg, Per G Tube, q8h PRN, RENITA Schwartz CNP melatonin tablet 3 mg, 3 mg, Per G Tube, Nightly PRN, RENITA Schwartz CNP miconazole (Micotin) 2 % powder, , Topical, BID, RENITA Gtz CNP, Given at 06/21/25 0828 midodrine (Proamatine) tablet 10 mg, 10 mg, Per G Tube, TID, Grzegorz Chatterjee MD, 10 mg at 06/21/2528 minocycline capsule 100 mg, 100 mg, Oral, [...] Topical, PRN, RENITA Gtz CNP, Given at 06/20/253 stomahesive in petrolatum (ET Mix), , Topical, [...] chloride, sodium chloride 0.9%, stomahesive in petrolatum [facility] Respiratory Care Department Progress Note Spontaneous [...] Amount: Scant (06/21/25 0435) Secretion Color: White (06/20/252347) Secretion Consistency: Thick (06/20/252347) ABG results No results for input(s): "PHART", "CML6XVG", "PO2ART", "YMQ1UYC", "SO2ART", "K9OLGKKA" in the last 72 hours. Does this patient meet criteria for termination of mechanical ventilation No - Chronic Vent Dependent Name of physician notified via secure chat or in person : na (NA if patient did not meet criteria) Comments: Thank you for involving Respiratory in the care of this patient, Images from the original note were not included. [facility] - Infectious Diseases Attending Progress Note [...] 1439 Aerobic and Anaerobic Culture with Stain [[id number]] (Abnormal) Wound from Trachea Final result Component Value No component results 06/09/2025 1411 06/13/2025 1002 Culture, Aerobic Bacteria with Gram Stain [[id number]] (Abnormal) Wound from Trachea Final result Component Value Culture Few respiratory dave present. Rare Pseudomonas aeruginosa Abnormal Gram Stain Result Many Polymorphonuclear leukocytes per low power field No organisms seen Collected Updated Procedure Result Status 06/07/2025 1129 06/07/2025 1142 Aerobic and Anaerobic Culture with Stain [[id number]] Body Fluid from Pleural Cavity, Left In process Component Value No component results 06/07/2025 1129 06/09/2025 0748 Culture, Aerobic Bacteria with Gram Stain [[id number]] Body Fluid from Pleural Cavity, Left Preliminary result Component Value Culture No growth at 48 hours P Gram Stain Result Few Polymorphonuclear leukocytes per low power field P No organisms seen P 06/07/2025 1129 06/07/2025 1142 Anaerobic culture [[id number]] Body Fluid from Pleural Cavity, Left In process Component Value No component results 06/07/2025 1025 06/09/2025 1301 Blood culture Site #2 - Suspected Infection [[id number]] Blood, Venous Preliminary result Component Value Blood Culture No growth at 48 hours P 06/07/2025 1014 06/09/2025 1301 Blood culture Site #1 - Suspected Infection [[id number]] Blood, Venous Preliminary result Component Value Blood Culture No growth at 48 hours P 06/06/2025 1732 06/08/2025 1413 Respiratory culture and Stain [[id number]] (Abnormal) Sputum Preliminary result Component Value Respiratory [...] 06/06/2025 1732 06/07/2025 1158 Pneumonia PCR Panel [[id number]] (Abnormal) Sputum Final result Component Value Staphylococcus [...] 06/06/2025 1429 06/09/2025 0801 Culture, Cath Tip [[id number]] (Abnormal) Foreign Body from Cannula Final result Component Value Culture >15 CFU Serratia marcescens Abnormal This organism possesses an ampC beta-lactamase. For serious infections outside of the urinary tract, third generation cephalosporins may not be effective, even if test results indicate the organism is susceptible. 06/02/2025173506/02/2025 205 Gastrointestinal PCR Panel [[id number]] Stool from Per Rectum Final result Component [...] DIFFICILE by PCR with Reflex to EIA [[id number]] (Abnormal) Stool from Per Rectum Final result Component Value C. difficile toxin PCR Detected Abnormal 06/02/2025 1736 06/02/2025 220 C. difficile Toxins EIA [[id number]] (Abnormal) Stool from Per Rectum Final result Component Value C difficile Toxins A+B, EIA Positive Abnormal Lines: RIJ HD cath (06/12/25) Radiography/Echo/Other: XR chest 1 view [[id number]] Collected: 06/08/25 140 Order Status: Completed Updated: [...] 06/08/2025 2:04 PM EDT US guided thoracentesis [[id number]] Collected: 06/07/25 140 Order Status: Completed Updated: 06/07/25 1410 Narrative: [...] 2:09 PM EDT XR chest 1 view [[id number]] Collected: 06/06/252039 Order Status: Completed Updated: 06/06/252042 [...] PM EDT IR CVC tunneled catheter removal [[id number]] Collected: 06/06/251545 Order Status: Completed Updated: 06/06/251546 [...] 3:46 PM EDT XR chest 1 view [[id number]] Collected: 06/01/25 1217 Order Status: Completed Updated: 06/01/25 1220 Narrative: [facility] 1950 [id number] Ex[facility] Date/Time: 06/01/2025 11:50 Procedure: XR CHEST [...] EDT Antimicrobials, Start/End Dates: Cefep 06/07- Fidaxo 06/03-16 Minocycline 9/17- Impression: Pneumonia due to Pseudomonas aeruginosa, Serratia [...] SBT indicated due to PT vent dependent. [facility] Nephrology Progress Note Subjective/ 75 y.o. year old female who we are seeing in consultation for ESRD and management of HD. Follows with Dr. Loredo and an outpatient HD schedule M- at [facility]. 06/06: TDC removed for suspicion of [...] hemodialysis RECOMMENDATIONS: - HD schedule M-F at [facility] [place], follows with Dr. Loredo. Tolerating HD today [...] Fluid Accumulation: No significant fluid accumulation Extremities Well Tester Strength: Not Performed Nutrition Assessment: Pt continues [...] tomorrow 06/21 then possible dc to facility ([facility]). Pt is s/p left thoracentesis 06/07 with 600ml dacosta fluid removed. Estimated Daily Nutrient Needs: Energy Requirements Based On: Kcal/kg Weight Used for Energy Requirements: [place] Weight for Energy Calculation (kg): 57 kg Total Energy Requirements (kcals/day): 3134-5712 kcals (25-30 kcals/kg) Weight Used for Protein Requirements: [place] Weight in Kg Used for Protein Requirements: [...] 226# 05/25/25) % Weight Change (Calculated): 1.4 [place] Body Weight (lbs) (Calculated): 125 lbs [place] Body Weight (Kg) (Calculated): 57 kg % [place] Body Weight (Calculated): 183.2 % BMI (kg/m2) [...] Planning: Enteral Nutrition Queta Steve RD Contact: *[phone] or via Secure Chat Images from the original note were not included. [facility], Pulmonary Medicine [address] [place], [place] [id number] Patient - Rosa Myers, Age - 75 [...] stable from pulmonary standpoint. Discharge back to [facility] once antibiotics completed. Case discussed with [...] , Raine Etienne MD, 3.125 mg at 06/20/25 0902 cefepime (Maxipime) 1,000 mg in sodium chloride [...] % infusion, 100 mL/hr, IntraVENous, PRN, Sharyn mAaya MD, Stopped at 06/02/25 1757 dextrose 50 [...] Grzegorz Chatterjee MD, 20 mg at 06/20/25 09 glucagon (human recombinant) injection 1 mg, 1 [...] Sharyn Amaya MD, 5,000 Units at 06/20/25 09 HYDROmorphone (Dilaudid) injection 0.25 mg, 0.25 mg, IntraVENous, q4h PRN, Robert Jimenez MD insulin glargine (Lantus) injection 25 Units, 25 Units, SubCUTAneous, BID, Sharyn Amaya MD, 25 Units at 06/20/25901 Insulin Lispro (Humalog) injection 0-6 Units, 0-6 Units, SubCUTAneous, q6h, Grzegorz Chatterjee MD, 1 Units at 06/14/25 120 ipratropium-albuterol (Duo-Neb) 0.5-2.5 mg/3 mL nebulizer solution 3 mL, 3 mL, Nebulization, TID, RENITA Tyler CNP, 3 mL at 06/20/25824 LORazepam (Ativan) tablet 0.25 mg, 0.25 mg, [...] mL, Nebulization, BID, Neelima Hanks APRN - [employer] SERVICE TECHNICIAN, 4 mL at 06/20/25 0828 stomahesive in [...] stomahesive in petrolatum Hospitalist Progress Note 06/20/[phone]: Please secure chat me for patient care issues. [phone]: Please secure chat [facility] Hospitalist for any issues. Subjective: Admit Date: 06/01/2025 PCP: No primary care provider on file. Room#: 222-04/222-04 A Brief History: Rosa Myers is a 75 y.o. female who presents with Anemia She is a patient from [facility], chronic tracheostomy and chronic [...] Nepro w/CARB Steady; Continuous; No; 40; 40 @KEYJ8ZTQZVK@ 24HR INTAKE/OUTPUT: Intake/Output Summary (Last 24 hours) [...] 0647 06/19/25 0629 06/20/25 0506 AST 24 19 ALT 13 10 9 BILITOT [...] -June 21 - Location -[facility] [place] - Pending the following -completion of antibiotics Total time spent (which include face to face and non face to face encounters) : 54 minutes Toxic drug monitoring/narrow therapeutic index drug monitoring : # Drug name : # Route administered : # Method of monitoring : No emergency contact information on file. Sharyn Amaya MD Division of Hospitalist Medicine [employer] [facility] PAGER: Epic chat [1] No past medical [...] petrolatum, , Topical, 3 times per day [facility] Respiratory Care Department Progress Note Spontaneous [...] ABG results No results for input(s): "PHART", "AZW8POS", "PO2ART", "WST1YUF", "SO2ART", "L6WEVHZH" in the last 72 hours. Does this patient meet criteria for termination of mechanical ventilation No - Chronic Vent Dependent Comments: Thank you for involving Respiratory in the care of this patient, [facility] Respiratory Care Department Progress Note As [...] Respiratory in the care of this patient, [facility] Nephrology Progress Note Subjective/ 75 y.o. year old female who we are seeing in consultation for ESRD and management of HD. Follows with Dr. Loredo and an outpatient HD schedule M- at [facility]. 06/06: TDC removed for suspicion of [...] 63 63 64 Resp: 16 15 15 Temp: 36.6 C (97.8 F) TempSrc: Axillary [...] Calcium: Lab Results Component Value Date CALCIUM 9.06/19/2025 Ionized Calcium: No components found for: "IONCA" Magnesium: No results found for: "MG" Phosphorus: No results found for: "PHOS" Assessment/ 75 y.o. female with ESRD N18.6 C. Difficile A04.72 Anemia D63.1 Volume overload E87.70 Hyponatremia E87.1 Chronic respiratory failure J96.10 Diabetes E11.22 Dependence on hemodialysis RECOMMENDATIONS: - HD schedule M- at [facility] [place], follows with Dr. Loredo. 1 L UF [...] from the original note were not included. [facility], Pulmonary Medicine [address] [place] [address] Patient - Rosa Myers, Age - 75 y.o. - 1950 Room Number - 222-04/222-04 A Consulting - Sharyn Amaya MD Primary Care Physician - No primary care provider [facility] file[id number] Date of Admission - 06/01/2025 10:53 AM [...] stable from pulmonary standpoint. Discharge back to [facility] once antibiotics completed. Case discussed with [...] day on Wednesday, Mi Singh APRN - [employer] SERVICE TECHNICIAN, 2,600 Units at 06/18/25 0855 FLUoxetine (PROzac) [...] Units, IntraCATHeter, PRN, Mi Singh, RENITA - [employer] SERVICE TECHNICIAN, 1,700 Units at 06/18/25 1338 heparin injection [...] from the original note were not included. [facility] Wound Care Progress Note Rosa Myers AGE: 75 y.o. GENDER: female : 1950 Subjective: HISTORY of PRESENT ILLNESS HPI Rosa Myers is a 75 y.o. female who presents for a wound follow up. HPI: Ms. Myers is a 75 y.o. female who presents to the emergency department with chief complaint of abnormal blood counts. Patient was sent to us from her snf for lab drawl that shows hemoglobin of [...] with NS, apply skin barrier wipe, leave SHREDDER PICKER daily and PRN -continue ICU bed -Q2hr/PRN turns -glide sheets for T&R -continence checks Q1-2 Hrs/PRN Nutritional support Wound Care to follow Recommend to follow up at [facility] wound [facility] after hospital discharge. Any questions or concerns please secure chat "[facility] wound/ostomy". I personally obtained the [...] as needed (forehead itching). Hospitalist Progress Note 06/19/[phone]: Please secure chat me for patient care issues. [phone]: Please secure chat [facility] Hospitalist for any issues. Subjective: Admit Date: 06/01/2025 PCP: No primary care provider on file. Room#: 222-04/222-04 A Brief History:Rosa Myers is a 75 y.o. female who presents with Anemia She is a patient from [facility], chronic tracheostomy and chronic [...] Nepro w/CARB Steady; Continuous; No; 40; 40 @SFAI6MJQPJE@ 24HR INTAKE/OUTPUT: Intake/Output Summary (Last 24 hours) at 06/19/2025 0954 Last data filed at 06/19/2025 0731 Gross per 24 hour Intake 2138 ml Output -- Net 2138 ml Past Medical History: Medical History[1] LABS: CBC: Recent Labs 06/17/25 0410 06/18/25 0647 06/19/25 0629 WBC 7.8 6.3 7.6 RBC 3.15* 2.85* 2.91* HGB 8.4* 7.6* 7.8* HCT 26.6* 24.4* 25.0* MCV 84.4 85.6 85.9 RDW 17.8* 18.2* 18.2* PLT 230 237 250 BMP: Recent Labs 06/17/25 0410 06/18/25 0647 [...] Sharyn Amaya MD Division of Hospitalist Medicine [employer] [facility] PAGER: Epic chat [1] No past medical [...] petrolatum, , Topical, 3 times per day [facility] Respiratory Care Department Progress Note Spontaneous [...] ABG results No results for input(s): "PHART", "RWP5BEY", "PO2ART", "NKQ6DCP", "SO2ART", "C5DPRIUE" in the last 72 hours. Does this patient meet criteria for termination of mechanical ventilation No - Chronic Vent Dependent Name of physician notified via secure chat or in person : (NA if patient did not meet criteria) Comments: Thank you for involving Respiratory in the care of this patient, Hospitalist Progress Note 06/18/2025 [phone]: Please secure chat me for patient care issues. [phone]: Please secure chat [facility] Hospitalist for any issues. Subjective: Admit [...] Nepro w/CARB Steady; Continuous; No; 40; 40 @PJVU5BDDTBK@ 24HR INTAKE/OUTPUT: No intake or output data [...] MD Division of Hospitalist Medicine [employer] PAGER: Epic chat [1] No past medical [...] petrolatum, , Topical, 3 times per day [facility] Nephrology Progress Note Subjective/ 75 y.o. year old female who we are seeing in consultation for ESRD and management of HD. Follows with Dr. Loredo and an outpatient HD schedule M- at [facility]. 06/06: TDC removed for suspicion of [...] hemodialysis RECOMMENDATIONS: - HD schedule M- at [facility] [place], follows with Dr. Loredo. 600 mL removed [...] the above assessment and plan with the LOOP TACKER. I agree with above note. HD MWF. [facility] Geriatric Medicine Inpatient Consult Service [...] illnesses --Since March, she has been at [facility] --candelaria lift at baseline -Per her snf facesmaddie, her Yamil and son Marcell are her emergency contacts 06/18: Anticipate return to ECF once medically improved OK to discharge to ECF from geriatric perspective once cleared medically Follow-up: prn, please page with any questions/issues Subjective Chief Complaint: Chief Complaint Patient presents with Other Sent from [facility] for low HGB, arrived via [...] who was admitted to acute care from [facility] long term [facility] care ([facility]) for severe anemia (hgb 6.5). She [...] 3.23 06/14/2025 Lab Results Component Value Date [id number] 1,032 (H) 06/02/2025 No results found for: "VITD25" Reviewed: allergies, previous encounters, active problem lists, medications, and labs [1] Current Facility-Administered Medications: acetaminophen (Tylenol) tablet 650 mg, 650 mg, Oral, q6h PRN, 650 mg at 06/13/256 OR acetaminophen (Tylenol) suppository 650 mg, 650 mg, Rectal, q6h PRN, Sharyn Amaya MD albumin human 5 % IV solution 25 g, 25 g, IntraVENous, TID PRN, Rad Acosta MD albuterol (2.5 MG/3ML) 0.083% nebulizer solution 2.5 mg, 2.5 mg, Nebulization, q6h PRN, Neelima Hanks, PROPERTY MANAGEMENT COORDINATOR - [employer] SERVICE TECHNICIAN atorvastatin (Lipitor) tablet 40 mg, 40 mg, [...] SubCUTAneous, Once per day on Wednesday, Mi Singh, PROPERTY MANAGEMENT COORDINATOR - [employer] SERVICE TECHNICIAN, 2,600 Units at 06/18/25 0855 FLUoxetine (PROzac) [...] Tube, q8h PRN, Diana Zabala APRN - [employer] SERVICE TECHNICIAN melatonin tablet 3 mg, 3 mg, Per G Tube, Nightly PRN, Diana NetoeCEASARN - [employer] SERVICE TECHNICIAN miconazole (Micotin) 2 % powder, , Topical, BID, Patrica Weinstein, RENITA - RENEE, Given at 06/18/25 0844 midodrine (Proamatine) tablet [...] % infusion, 250 mL/hr, IntraVENous, PRN, Geno aWddell MD sodium chloride 0.9 % infusion, 250 [...] from the original note were not included. [facility] Wound Care Progress Note Rosa Myers AGE: 75 y.o. GENDER: female : 1950 Subjective: HISTORY of PRESENT ILLNESS HPI Rosa Myers is a 75 y.o. female who presents for a wound follow up. HPI: Ms. Myers is a 75 y.o. female who presents to the emergency department with chief complaint of abnormal blood counts. Patient was sent to us from her snf for lab drawl that shows hemoglobin of [...] with NS, apply skin barrier wipe, leave SHREDDER PICKER daily and PRN -continue ICU bed -Q2hr/PRN turns -glide sheets for T&R -continence checks Q1-2 Hrs/PRN Nutritional support Wound Care to follow Recommend to follow up at [facility] wound care center after hospital discharge. Any questions or concerns please secure chat "[facility] wound/ostomy". I personally obtained the [...] from the original note were not included. [facility], Pulmonary Medicine [address] [place] [id number] Patient - Rosa Myers, Age - 75 [...] 0545 06/16/25 0620 06/16/25 1301 06/16/25 1720 06/16/25202806/17/25 0410 06/17/25 0638 06/17/25 1222 06/17/25 1730 [...] Full Code Discharge planning: Discharge back to [facility] once antibiotics completed. Case discussed with [...] RENITA Clifford CNP, 2,600 Units at 06/18/25 08 FLUoxetine (PROzac) capsule 20 mg, 20 mg, [...] mL, Nebulization, q4h, Neelima Hanks, RENITA - [employer] SERVICE TECHNICIAN, 3 mL at 06/18/25 0824 LORazepam (Ativan) tablet 0.25 mg, 0.25 mg, Per G Tube, q8h PRN, Diana Zabala APRN - [employer] SERVICE TECHNICIAN melatonin tablet 3 mg, 3 mg, Per G Tube, Nightly PRN, Diana EzjayeRENITA - [employer] SERVICE TECHNICIAN miconazole (Micotin) 2 % powder, , Topical, BID, Patrica Weinstein APRN - [employer] SERVICE TECHNICIAN, Given at 06/18/25 0844 midodrine (Proamatine) tablet [...] chloride, sodium chloride 0.9%, stomahesive in petrolatum [facility] Respiratory Care Department Progress Note Spontaneous [...] ABG results No results for input(s): "PHART", "MUV7IRZ", "PO2ART", "RES8EPI", "SO2ART", "B2YNTWKO" in the last 72 hours. Does this patient meet criteria for termination of mechanical ventilation No - Chronic Vent Dependent Name of physician notified via secure chat or in person : na (NA if patient did not meet criteria) Comments: Thank you for involving Respiratory in the care of this patient, [facility] Nephrology Progress Note Subjective/ 75 y.o. year old female who we are seeing in consultation for ESRD and management of HD. Follows with Dr. Loredo and an outpatient HD schedule M- at [facility]. 06/06: TDC removed for suspicion of [...] hemodialysis RECOMMENDATIONS: - HD schedule M-F at [facility], follows with Dr. Loredo. Tolerated HD [...] Notes reviewed and plan discussed with the LOOP TACKER. Agree with above note except Any variance is noted below. Lynn Powell MD [facility] [phone] [facility] Hospitalist Progress note [phone]: Please page me [phone]) for patient care issues. [phone]: Please page [facility] Hospitalist for any issues. Subjective: Admit [...] MD Division of Hospitalist Medicine Inpatient Medical Services/[facility] [1] [2] atorvastatin, 40 mg, Per G [...] petrolatum, , Topical, 3 times per day [facility] Respiratory Care Department Progress Note Spontaneous [...] ABG results No results for input(s): "PHART", "AZV2LBE", "PO2ART", "XKA3WSO", "SO2ART", "L2JGULNI" in the last 72 hours. Does this patient meet criteria for termination of mechanical ventilation No - Chronic Vent Dependent Name of physician notified via secure chat or in person : na (NA if patient did not meet criteria) Comments: Thank you for involving Respiratory in the care of this patient, [facility] Nephrology Progress Note Subjective/ 75 y.o. year old female who we are seeing in consultation for ESRD and management of HD. Follows with Dr. Loredo and an outpatient HD schedule M- at [facility]. 06/06: TDC removed for suspicion of [...] hemodialysis RECOMMENDATIONS: - HD schedule M-F at [facility] [place], follows with Dr. Loredo. Tolerated HD yesterday, [...] Notes reviewed and plan discussed with the LOOP TACKER. Agree with above note except Any variance is noted below. Lynn Powell MD [facility] [place] [phone] [facility] Hospitalist Progress note [phone]: Please page me [phone]) for patient care issues. [phone]: Please page [facility] Hospitalist for any issues. Subjective: Admit [...] 1736 ml LABS: CBC: Recent Labs 06/14/25 0402 06/15/25 0225 06/16/25 0545 WBC 5.6 6.1 6.2 RBC 3.21* [...] 10 LIVER PROFILE: Recent Labs 06/14/25 0402 06/15/2522406/16/25 0545 AST 27 26 26 ALT 16 [...] MD Division of Hospitalist Medicine Inpatient Medical Services/[facility] [1] [2] atorvastatin, 40 mg, Per G [...] petrolatum, , Topical, 3 times per day [facility] Respiratory Care Department Progress Note Spontaneous [...] Secretion Amount: Copious (06/16/25320) Secretion Color: Clear (09/20/25 0321) Secretion Consistency: Thick (06/16/25 0321) ABG results No results for input(s): "PHART", "YAT7BSZ", "PO2ART", "FEA6GJW", "SO2ART", "F1LVLANR" in the last 72 hours. Does this [...] (temporalis), Thigh (quadraceps) Fluid Accumulation: Severe Extremities Well Tester Strength: Normal office sweeper strength Nutrition Assessment: 75 year old woman who remains admitted to [facility] ICU (for vent support, being followed by IMS) following routine blood draw showing anemia at [facility]. +2 u PRBC since admit. Nephrology consulted and supporting for ESRD and management on inpatient HD. TDC was removed on 06/06 due to infection, +new TDC placed on 06/12. Continues a MWF HD schedule while admitted, -2000 mL removed and well tolerated on 06/13 (M-F schedule at [facility]). Pulmonology supporting, +trach to vent. ID consulted and supporting for PNA- Pseudomonas aeruginosa, Serratia marcescens, and stenotrophomonas maltophilia; CDAD, and Serratia marcescens of former TDC. 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 Remains admitted to H through 06/21 for IV antibiotics- as facility cannot accept back. Sitting up in bed with HD running at time of re-assessment. EN continues to goal, denies: pain, nausea, GI distress. Estimated Daily Nutrient Needs: Energy Requirements Based On: Kcal/kg Weight Used for Energy Requirements: [place] Weight for Energy Calculation (kg): 57 kg Total Energy Requirements (kcals/day): 1333-0628 (25-30 kcal/kg IBW) Weight Used for Protein Requirements: [place] Weight in Kg Used for Protein Requirements: [...] 226# 05/25/25) % Weight Change (Calculated): 1.4 [place] Body Weight (lbs) (Calculated): 125 lbs [place] Body Weight (Kg) (Calculated): 57 kg % [place] Body Weight (Calculated): 183.2 % BMI (kg/m2) [...] Physical Findings Discharge Planning: Enteral Nutrition Raquel M Basic, RDN, LDN, Contact: *[phone] [facility] Hospitalist Progress note [phone]: Please page me ([phone]) for patient care issues. [phone]: Please page [facility] Hospitalist for any issues. Subjective: Admit [...] Net 832 ml LABS: CBC: Recent Labs 06/13/2543206/14/2540106/15/25224 WBC 7.2 5.6 6.1 RBC 3.19* 3.21* [...] 12 11 12 LIVER PROFILE: Recent Labs 06/13/253 06/14/2540106/15/25224 AST 22 27 26 ALT 12 16 [...] MD Division of Hospitalist Medicine Inpatient Medical Services/[facility] [1] [2] atorvastatin, 40 mg, Per G [...] petrolatum, , Topical, 3 times per day [facility] Nephrology Progress Note Subjective/ 75 y.o. year old female who we are seeing in consultation for ESRD and management of HD. Follows with Dr. Loredo and an outpatient HD schedule M-F at [facility]. 06/06: TDC removed for suspicion of [...] 3.5 3.4* CL 97* 99 97* CO2 GLUCOSE 56* 100 80* MG 2.0 1.9 [...] hemodialysis RECOMMENDATIONS: - HD schedule M-F at [facility], follows with Dr. Loredo. 2 L [...] the above assessment and plan with the LOOP TACKER. I agree with above note. HD MWF. [facility] Geriatric Medicine Inpatient Consult Service [...] illnesses --Since March, she has been at [facility] --candelaria lift at baseline -Per her snf facesheet, her Yamil and son Marcell are [...] who was admitted to acute care from director long term care care ([facility]) for severe anemia (hgb 6.5). She [...] 543 ms QTC Interval 552 ms P [place] 0 degrees QRS [place] -11 degrees T [place] 188 degrees [place] Interval 65 ms POCT glucose meter Collection [...] 3.23 06/14/2025 Lab Results Component Value Date [id number] 1,032 (H) 06/02/2025 No results found for: [...] Nebulization, q6h PRN, Neelima Hanks APRN - [employer] SERVICE TECHNICIAN atorvastatin (Lipitor) tablet 40 mg, 40 mg, Per G Tube, Daily, Grzegorz Chatterjee MD, 40 mg at 06/15/25933 busPIRone (Buspar) tablet 5 mg, 5 mg, Per G Tube, TID, Grzegorz Chatterjee MD, 5 mg at 06/15/25933 carvedilol (Coreg) tablet 3.125 mg, 3.125 mg, Per G Tube, BID WC, Raine Etienne MD, 3.125 mg at 06/15/25933 cefepime (Maxipime) 1,000 mg in sodium chloride [...] Singh APRN - RENEE, 2,600 Units at 06/15/25933 FLUoxetine (PROzac) capsule 20 mg, 20 mg, Per G Tube, Daily, Grzegorz Chatterjee MD, 20 mg at 06/15/25 0932 furosemide (Lasix) tablet 20 mg, 20 mg, Per G Tube, Daily, Grzegorz Chatterjee MD, 20 mg at 06/15/25933 glucagon (human recombinant) injection 1 mg, 1 mg, IntraMUSCular, PRN, Sharyn Amaya MD glucose oral gel 15 g, 15 g, Oral, PRN, Sharyn Amaya MD heparin injection 1,200-2,000 Units, 1,200-2,000 Units, IntraCATHeter, PRN, Mi Singh, RENITA - [employer] SERVICE TECHNICIAN, 1,400 Units at 06/11/25 1404 heparin injection 1,200-2,000 Units, 1,200-2,000 Units, IntraCATHeter, PRN, Mi Bravobavny, PROPERTY MANAGEMENT COORDINATOR - [employer] SERVICE TECHNICIAN, 1,400 Units at 06/11/25 1402 heparin injection [...] mL, Nebulization, BID, Neelima Hanks APRN - [employer] SERVICE TECHNICIAN, 4 mL at 06/15/25 0735 stomahesive in petrolatum (ET Mix), , Topical, PRN, RENITA Gtz CNP, Given at 06/08/25 1857 stomahesive in petrolatum (ET Mix), , Topical, 3 times per day, RENITA Gtz CNP, Given at 06/15/25 0632 [facility] Respiratory Care Department Progress Note Spontaneous [...] ABG results No results for input(s): "PHART", "KUY9QQJ", "PO2ART", "VEH7GTI", "SO2ART", "Y4FPZLQU" in the last 72 hours. Does this patient meet criteria for termination of mechanical ventilation No - Chronic Vent Dependent Name of physician notified via secure chat or in person : N/A (NA if patient did not meet criteria) Comments: Thank you for involving Respiratory in the care of this patient, [facility] Nephrology Progress Note Subjective/ 75 y.o. year old female who we are seeing in consultation for ESRD and management of HD. Follows with Dr. Loredo and an outpatient HD schedule M- at [facility]. 06/06: TDC removed for suspicion of [...] per 24 hour Intake 1727 ml Output 43418 ml Net -38278 ml Wt Readings from Last 3 Encounters: [...] hemodialysis RECOMMENDATIONS: - [facility], follows with Dr. Loredo. 2 L removed [...] the above assessment and plan with the LOOP TACKER. I agree with above note. DICK MWF. Images from the original note were not included. [facility] Wound Care Progress Note Rosa Myers AGE: 75 y.o. GENDER: female : 1950 Subjective: HISTORY of PRESENT ILLNESS HPI Rosa Myers is a 75 y.o. female who presents for a wound follow up. HPI: Ms. Myers is a 75 y.o. female who presents to the emergency department with chief complaint of abnormal blood counts. Patient was sent to us from her snf for lab drawl that shows hemoglobin of [...] to follow Recommend to follow up at [facility] wound [facility] after hospital discharge. Any questions or concerns please secure chat "[facility] wound/ostomy". I personally obtained the [...] Barraza DO at 06/19/2025 12:02 PM EDT [facility] Hospitalist Progress note [phone]: Please page me ([phone]) for patient care issues. [phone]: Please page [facility] Hospitalist for any issues. Subjective: Admit [...] per 24 hour Intake 1727 ml Output 46050 ml Net -68968 ml LABS: CBC: Recent Labs 06/12/25 0550 [...] MD Division of Hospitalist Medicine Inpatient Medical Services/[facility] [1] [2] atorvastatin, 40 mg, Per G [...] from the original note were not included. [facility], Pulmonary Medicine [address] [place] [address] Patient - Rosa Myers, Age - 75 y.o. - 1950 Room Number - [id number] A Consulting - Robert Jimenez MD Primary Care Physician - No primary care provider on file. Date of Admission - 06/01/2025 10:53 AM Hospital Day - 13 Problem List[1] Chief Complaint: Anemia Rsoa Myers is a 75 y.o. female who [...] per 24 hour Intake 1727 ml Output 87314 ml Net -07497 ml Physical Exam:unchanged compared to 06/07 Physical [...] Patient remains stable to discharge back to [facility] from pulmonary standpoint Case discussed with nurse and patient Questions and concerns addressed. [1] Patient Active Problem List Diagnosis Anemia Anemia, unspecified type Moderate malnutrition (CMS/HCC) ([facility]) [2] No Known Allergies [3] Current Facility-Administered [...] WC, Raine Etienne MD, 3.125 mg at 06/14/25917 cefepime (Maxipime) 1,000 mg in sodium chloride [...] Daily, Grzegorz Chatterjee MD, 20 mg at 06/14/25917 furosemide (Lasix) tablet 20 mg, 20 mg, Per G Tube, Daily, Grzegorz Chatterjee MD, 20 mg at 06/14/25915 glucagon (human recombinant) injection 1 mg, 1 mg, IntraMUSCular, PRN, Sharyn Amaya MD glucose oral gel 15 g, 15 g, Oral, PRN, Sharyn Amaya MD heparin injection 1,200-2,000 Units, 1,200-2,000 Units, IntraCATHeter, PRN, RENITA Clifford CNP, 1,400 Units at 06/11/25 1404 heparin injection 1,200-2,000 Units, 1,200-2,000 Units, IntraCATHeter, PRN, Mi RENITA Singh CNP, 1,400 Units at 06/11/25 1402 heparin [...] mL, Nebulization, q4h, Neelima Hanks APRN - [employer] SERVICE TECHNICIAN, 3 mL at 06/14/25 08 miconazole (Micotin) 2 % powder, , Topical, BID, Patrica Weinstein APRN - [employer] SERVICE TECHNICIAN, Given at 06/14/25917 midodrine (Proamatine) tablet 10 [...] sodium chloride, sodium chloride, stomahesive in petrolatum [facility] Nephrology Progress Note Subjective/ 75 y.o. year old female who we are seeing in consultation for ESRD and management of HD. Follows with Dr. Loredo and an outpatient HD schedule M-F at [facility]. 06/06: TDC removed for suspicion of [...] 235 Recent Labs 06/11/25 0552 06/12/25 0550 09/17/25 0433 NA 132* 137 134* K 3.9 [...] 06/13/2025 Phosphorus: No results found for: "PHOS" / y.o. female with ESRD N18.6 C. Difficile A04.72 Anemia D63.1 Volume overload E87.70 Hyponatremia E87.1 Chronic respiratory failure J96.10 Diabetes E11.22 Dependence on hemodialysis RECOMMENDATIONS: - HD schedule M-F at [facility], follows with Dr. Loredo. 1.6 L [...] the above assessment and plan with the LOOP TACKER. I agree with above note. [facility] Hospitalist Progress note [phone]: Please page me ([phone]) for patient care issues. [phone]: Please page [facility] Hospitalist for any issues. Subjective: Admit [...] per 24 hour Intake 2043 ml Output 22331 ml Net -21554 ml LABS: CBC: Recent Labs 06/11/25 0552 06/12/25 0550 06/13/25 043 WBC 7.4 6.9 7.2 RBC 3.16* 2.98* 3.19* HGB 8.3* 7.9* 8.4* HCT 25.8* 25.0* 26.6* MCV 81.6 83.9 83.4 RDW 18.0* 18.3* 17.8* PLT 235 224 235 BMP: Recent Labs 06/11/25 0552 06/12/25 0550 06/13/25 043 NA 132* 137 134* K 3.9 3.7 3.5 CL 99 98 97* CO2 22* 27 25 BUN 49* 26* 39* CREATININE 4.10* 2.53* 3.37* GLUCOSE 149* 165* 56* CALCIUM 9.2 8.7* 9.3 ANIONGAP 11 12 12 LIVER PROFILE: Recent Labs 06/11/2552 06/12/25 0550 06/13/25 043 AST 26 21 22 ALT 12 9 [...] MD Division of Hospitalist Medicine Inpatient Medical Services/[facility] [1] [2] atorvastatin, 40 mg, Per G [...] from the original note were not included. [facility], Pulmonary Medicine [address] [place] [address] Patient - Rosa Myers, Age - 75 [...] Recent Labs 06/11/25 0552 06/12/25 0550 06/13/25 043 NA 132* 137 134* K 3.9 3.7 [...] Patient remains stable to discharge back to [facility] from pulmonary standpoint Case discussed with nurse and patient Questions and concerns addressed. [1] Patient Active Problem List Diagnosis Anemia Anemia, unspecified type Moderate malnutrition (CMS/HCC) ([facility]) [2] No Known Allergies [3] Current Facility-Administered [...] Nebulization, q6h PRN, Neelima Hanks APRN - [employer] SERVICE TECHNICIAN atorvastatin (Lipitor) tablet 40 mg, 40 mg, [...] BID, Sharyn Amaya MD, 25 Units at 09/16/25 2159 Insulin Lispro (Humalog) injection 0-6 Units, 0-6 Units, SubCUTAneous, q6h, Grzegorz Chatterjee MD, 1 Units at 06/12/25 1318 ipratropium-albuterol (Duo-Neb) 0.5-2.5 mg/3 mL nebulizer solution 3 mL, 3 mL, Nebulization, q4h, Neelima Hanks, PROPERTY MANAGEMENT COORDINATOR - [employer] SERVICE TECHNICIAN, 3 mL at 06/13/25 0955 miconazole (Micotin) 2 % powder, , Topical, BID, Patrica Weinstein, PROPERTY MANAGEMENT COORDINATOR - [employer] SERVICE TECHNICIAN, Given at 06/12/25 2222 midodrine (Proamatine) tablet 10 mg, 10 mg, [...] sodium chloride, sodium chloride, stomahesive in petrolatum [facility] Respiratory Care Department Progress Note Spontaneous [...] 450 mL (06/13/251013) FiO2 (%): 30 % (09/17/25 1014) PEEP/CPAP (cm H2O): 5 cm H20 (06/13/25 1014) Inspiratory Time (sec): 0.9 sec (06/13/25 101) Vitals MAP (mmHg): 107 (06/13/25 0402) Heart Rate: 62 (06/13/25 1014) Resp: 22 (06/13/25 0424) SpO2: 100 % (06/13/25 101) Suctioning/Secretions Secretion Amount: Moderate (06/13/25423) Secretion Color: White, Yellow (06/13/25 042) Secretion Consistency: Thick (06/13/25423) ABG results No results for input(s): "PHART", "BRY6PUT", "PO2ART", "BWN1KXB", "SO2ART", "H4XMJBLA" in the last 72 hours. Does this [...] from the original note were not included. [facility] - Infectious Diseases Attending Progress Note [...] -- -- -- 69 22 100 % 06/13/253 -- -- -- 74 -- 100 % [...] 1142 Aerobic and Anaerobic Culture with Stain [[id number]] Body Fluid from Pleural Cavity, Left In process Component Value No component results 06/07/2025 1129 06/09/2025 0748 Culture, Aerobic Bacteria with Gram Stain [[id number]] Body Fluid from Pleural Cavity, Left Preliminary result Component Value Culture No growth at 48 hours P Gram Stain Result Few Polymorphonuclear leukocytes per low power field P No organisms seen P 06/07/2025 1129 06/07/2025 1142 Anaerobic culture [[id number]] Body Fluid from Pleural Cavity, Left In process Component Value No component results 06/07/2025 1025 06/09/2025 1301 Blood culture Site #2 - Suspected Infection [[id number]] Blood, Venous Preliminary result Component Value Blood Culture No growth at 48 hours P 06/07/2025 1014 06/09/2025 1301 Blood culture Site #1 - Suspected Infection [[id number]] Blood, Venous Preliminary result Component Value Blood Culture No growth at 48 hours P 06/06/2025 1732 06/08/2025 1413 Respiratory culture and Stain [[id number]] (Abnormal) Sputum Preliminary result Component Value Respiratory [...] 06/06/2025 1732 06/07/2025 1158 Pneumonia PCR Panel [[id number]] (Abnormal) Sputum Final result Component Value Staphylococcus [...] 06/06/2025 1429 06/09/2025 0801 Culture, Cath Tip [[id number]] (Abnormal) Foreign Body from Cannula Final result Component Value Culture >15 CFU Serratia marcescens Abnormal This organism possesses an ampC beta-lactamase. For serious infections outside of the urinary tract, third generation cephalosporins may not be effective, even if test results indicate the organism is susceptible. 06/02/2025173506/02/20252058 Gastrointestinal PCR Panel [[id number]] Stool from Per Rectum Final result Component [...] DIFFICILE by PCR with Reflex to EIA [[id number]] (Abnormal) Stool from Per Rectum Final result Component Value C. difficile toxin PCR Detected Abnormal 06/02/2025173506/02/20252207 C. difficile Toxins EIA [[id number]] (Abnormal) Stool from Per Rectum Final result Component Value C difficile Toxins A+B, EIA Positive Abnormal Lines: RIJ HD cath (06/12/25) Radiography/Echo/Other: XR chest 1 view [[id number]] Collected: 06/08/251401 Order Status: Completed Updated: 06/08/251404 [...] 06/08/2025 2:04 PM EDT US guided thoracentesis [[id number]] Collected: 06/07/25 1409 Order Status: Completed Updated: 06/07/25 1410 Narrative: Patient Name: ROSA MYESR : 1950 Exam Date/Time: 06/07/2025 11:01 Procedure: [...] 2:09 PM EDT XR chest 1 view [[id number]] Collected: 06/06/252039 Order Status: Completed Updated: 06/06/252042 [...] PM EDT IR CVC tunneled catheter removal [[id number]] Collected: 06/06/25 1546 Order Status: Completed Updated: [...] 3:46 PM EDT XR chest 1 view [[id number]] Collected: 06/01/25 1217 Order Status: Completed Updated: [...] benefits, and consideration of use of antimicrobials. [facility] Respiratory Care Department Progress Note Spontaneous Awakening Trial Wean Screen SpO2>/=88%: Yes (09/423) FiO2</=50%: Yes (06/13/25423) PEEP </=8cmH2O: Yes (06/13/25423) [...] ABG results No results for input(s): "PHART", "TNT6UNH", "PO2ART", "SAM4PKQ", "SO2ART", "S4RMWRQK" in the last 72 hours. Does this patient meet criteria for termination of mechanical ventilation Yes- Notified physician below Name of physician notified via secure chat or in person : N/A (NA if patient did not meet criteria) Comments: Thank you for involving Respiratory in the care of this patient, [facility] Nephrology Progress Note Subjective/ 75 y.o. year old female who we are seeing in consultation for ESRD and management of HD. Follows with Dr. Loredo and an outpatient HD schedule M-F at [facility]. 06/06: TDC removed for suspicion of [...] hemodialysis RECOMMENDATIONS: - HD schedule M-F at [facility] [place], follows with Dr. Loredo. 1.6 L removed [...] sodium chloride, sodium chloride, stomahesive in petrolatum [facility] Hospitalist Progress note [phone]: Please page ny ([phone]) for patient care issues. [phone]: Please page [facility] Hospitalist for any issues. Subjective: Admit [...] MD Division of Hospitalist Medicine Inpatient Medical Services/[facility] [1] [2] atorvastatin, 40 mg, Per G [...] from the original note were not included. [facility], Pulmonary Medicine [address] [place] [address] Patient - Rosa Myers, Age - 75 y.o. - 1950 Room Number - [id number] A Consulting - Robert Jimenez MD Primary Care Physician - [id number] Date of Admission - 06/01/2025 10:53 AM [...] Discharge planning: Stable to discharge back to [facility] from pulmonary standpoint Case discussed with [...] Units, IntraCATHeter, PRN, Mi Singh APRN - [employer] SERVICE TECHNICIAN, 1,400 Units at 06/11/25 1404 heparin injection 1,200-2,000 Units, 1,200-2,000 Units, IntraCATHeter, PRN, Mi Singh APRN - [employer] SERVICE TECHNICIAN, 1,400 Units at 06/11/25 1402 heparin injection [...] q4h, RENITA Tyler CNP, 3 mL at 06/12/25 0808 miconazole (Micotin) 2 % powder, , Topical, BID, RENITA Gtz CNP, 1 Application at 06/12/25 0951 midodrine (Proamatine) [...] Nightly, Grzegorz Chatterjee MD, 40 mg at 06/11/252047 polyethylene glycol (PEG) 3350 (Miralax) packet 17 [...] Topical, PRN, RENITA Gtz CNP, Given at 06/08/257 stomahesive in petrolatum (ET Mix), , Topical, 3 times per day, RENITA Gtz CNP, Given at 06/12/25 0559 [4] PRN medications: acetaminophen OR acetaminophen, albumin human, albuterol, dextrose 5 % and sodium chloride 0.45 %, dextrose, dextrose, glucagon (rDNA), glucose, heparin, heparin, heparin, heparin, morphine sulfate, polyethylene glycol (PEG) 3350, promethazine OR promethazine OR promethazine, sodium chloride, sodium chloride, sodium chloride, stomahesive in petrolatum [facility] Respiratory Care Department Progress Note Spontaneous [...] ABG results No results for input(s): "PHART", "HPH0YMZ", "PO2ART", "HZY7SPK", "SO2ART", "T5QOVCVN" in the last 72 hours. Does this patient meet criteria for termination of mechanical ventilation No - Chronic Vent Dependent Name of physician notified via secure chat or in person : NA (NA if patient did not meet criteria) Comments: Thank you for involving Respiratory in the care of this patient, [facility] Nephrology Progress Note Subjective/ 75 y.o. year old female who we are seeing in consultation for ESRD and management of HD. Follows with Dr. Loredo and an outpatient HD schedule M- at [facility]. 06/06: TDC removed for suspicion of [...] hemodialysis RECOMMENDATIONS: - HD schedule M- at [facility], follows with Dr. Loredo. Tolerating HD [...] 0.9 %, 75 mL/hr, Last Rate: Stopped (06/10/250) [3] PRN medications: acetaminophen OR acetaminophen, albumin [...] the above assessment and plan with the LOOP TACKER. I agree with above note. Needs Temp [...] removed. Plan is to go back to [facility] [place]. Estimated Daily Nutrient Needs: Energy Requirements Based On: Kcal/kg Weight Used for Energy Requirements: [place] Weight for Energy Calculation (kg): 57 kg Total Energy Requirements (kcals/day): 2688-5105 (25-30 kcal/kg IBW) Weight Used for Protein Requirements: [place] Weight in Kg Used for Protein Requirements: [...] 226# 05/25/25) % Weight Change (Calculated): -8.4 [place] Body Weight (lbs) (Calculated): 125 lbs [place] Body Weight (Kg) (Calculated): 57 kg % [place] Body Weight (Calculated): 183.2 % BMI (kg/m2) [...] Planning: Enteral Nutrition Queta Steve RD Contact: [phone] or via Secure Chat Images from the original note were not included. [facility], Pulmonary Medicine [address] [place] [address] Patient - Rosa Myers, Age - 75 [...] breath or chest pain. Secretions improved per ELECTRICAL PROSPECTING OBSERVER. No new overnight concerns. Vent settings: Mode [...] 0541 06/10/25 0508 06/11/25 0552 AST 18 26 ALT 9 10 12 PROT 6.6 [...] Code Discharge planning: Anticipate discharge back to [facility] once medically stable Case discussed with nurse and patient Questions and concerns addressed. [1] Patient Active Problem List Diagnosis Anemia Anemia, unspecified type Moderate malnutrition (CMS/HCC) (FORMERLY [facility]) [2] No Known Allergies [3] Current Facility-Administered [...] Grzegorz Chatterjee MD, 20 mg at 06/11/25 08 furosemide (Lasix) tablet 20 mg, 20 mg, Per G Tube, Daily, Grzegorz Chatterjee MD, 20 mg at 06/11/2546 glucagon (human recombinant) injection 1 mg, 1 mg, IntraMUSCular, PRN, Sharyn Amaya MD glucose oral gel 15 g, 15 g, Oral, PRN, Sharyn Amaya MD heparin injection 1,200-2,000 Units, 1,200-2,000 Units, IntraCATHeter, PRN, Mi Singh APRN - [employer] SERVICE TECHNICIAN, 1,600 Units at 06/04/25 192 heparin injection 1,200-2,000 Units, 1,200-2,000 Units, IntraCATHeter, PRN, Mi Singh APRN - [employer] SERVICE TECHNICIAN, 1,600 Units at 06/04/25 1922 heparin injection 1,200-2,000 Units, 1,200-2,000 Units, IntraCATHeter, PRN, Carmela Francois DO, 1,400 Units at 06/08/25 181 heparin injection 1,200-2,000 Units, 1,200-2,000 Units, IntraCATHeter, PRN, Carmela Francois DO, 1,200 Units at 06/08/25 181 heparin injection 5,000 Units, 5,000 Units, SubCUTAneous, [...] mL, 3 mL, Nebulization, q4h, Neelima Hanks, PROPERTY MANAGEMENT COORDINATOR - [employer] SERVICE TECHNICIAN, 3 mL at 06/11/25 1139 miconazole (Micotin) 2 % powder, , Topical, BID, Patrica Weinstein, RENITA - [employer] SERVICE TECHNICIAN, 1 Application at 06/11/25 0852 midodrine (Proamatine) [...] sodium chloride, sodium chloride, stomahesive in petrolatum [facility] Hospitalist Progress note [phone]: Please page me ([phone]) for patient care issues. [phone]: Please page [facility] Hospitalist for any issues. 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 She was admitted to hospital on ICU floor given Vent status but followed by hospital medicine, pulmonology and nephrology during stay. Saturation Equipment Operator consulted for management of tube feeding = [...] MD Division of Hospitalist Medicine Inpatient Medical Services/[facility] [1] dextrose 5 % and sodium chloride [...] petrolatum, , Topical, 3 times per day [facility] Respiratory Care Department Progress Note Spontaneous [...] ABG results No results for input(s): "PHART", "DIT1ZPS", "PO2ART", "LFT7OUO", "SO2ART", "[id number]" in the last 72 hours. Does this patient meet criteria for termination of mechanical ventilation No - Chronic Vent Dependent Comments: Thank you for involving Respiratory in the care of this patient, [facility] Nephrology Progress Note Subjective/ 75 y.o. year old female who we are seeing in consultation for ESRD and management of HD. Follows with Dr. Loredo and an outpatient HD schedule M- at [facility]. 06/04: last iHD tx, 1.6 L [...] hemodialysis RECOMMENDATIONS: - HD schedule M-F at [facility] [place], follows with Dr. Loredo. S/p iHD 06/04 [...] sodium chloride, sodium chloride, stomahesive in petrolatum [facility] Hospitalist Progress note [phone]: Please page me [phone]) for patient care issues. [phone]: Please page [facility] night Hospitalist for any issues. 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 She was admitted to hospital on ICU floor given Vent status but followed by hospital medicine, pulmonology and nephrology during stay. Saturation Equipment Operator consulted for management of tube feeding = [...] Intake/Output Summary (Last 24 hours) at 06/10/2025 09 Last data filed at 06/10/2025 0656 Gross per 24 hour Intake 1755 ml Output -- Net 1755 ml LABS: CBC: Recent Labs 06/08/25 01106/09/25 0633 06/09/25 0735 06/10/25 0508 WBC 6.5 6.7 -- 6.4 RBC 2.96* 2.66* -- 2.65* HGB 7.7* 6.9* 7.3* 6.8* HCT 24.6* 22.0* 22.8* 22.4* MCV 83.1 82.7 -- 84.5 RDW 19.2* 19.1* -- 19.1* PLT 236 230 -- 228 BMP: Recent Labs 06/08/2511406/09/25 0541 06/10/25 0508 NA [...] Facility - Pending the following -clinical improvement, home care consultant recommendations Total time spent (which include face to face and non face to face encounters) : 52 minutes Toxic drug monitoring/narrow therapeutic index drug monitoring : # Drug name : # Route administered : # Method of monitoring : No emergency contact information on file. Advance Directive: Full Code Discharge planning: TBD Raine Etienne MD Division of Hospitalist Medicine Inpatient Medical Services/[facility] [1] dextrose 5 % and sodium chloride [...] with transfusion of blood components. DR Etienne [facility] Respiratory Care Department Progress Note Spontaneous [...] ABG results No results for input(s): "PHART", "KGI6WET", "PO2ART", "BAE3KSK", "SO2ART", "T5XYATDH" in the last 72 hours. Does this patient meet criteria for termination of mechanical ventilation No - Chronic Vent Dependent Comments: Thank you for involving Respiratory in the care of this patient, [facility] Nephrology Progress Note Subjective/ 75 y.o. year old female who we are seeing in consultation for ESRD and management of HD. Follows with Dr. Loredo and an outpatient HD schedule M- at [facility]. 06/04: last iHD tx, 1.6 L [...] Meds[2] PRN Meds:PRN Meds[3] Data/ Recent Labs 06/07/25 0335 06/08/25 0115 06/09/25 0633 06/09/25 0735 WBC 7.4 6.5 6.7 -- HGB 7.5* 7.7* 6.9* 7.3* HCT 24.4* 24.6* 22.0* 22.8* MCV 84.4 83.1 82.7 -- PLT 234 236 230 -- Recent Labs 06/07/25 0335 06/08/25 0115 06/09/25 [...] hemodialysis RECOMMENDATIONS: - HD schedule M- at [facility], follows with Dr. Loredo. S/p iHD [...] from the original note were not included. [facility] - Infectious Diseases Attending [...] F) Oral 69 -- 99 % -- 06/09/2519 -- -- -- 63 -- 99 % -- 06/09/2515 -- -- -- 62 18 99 % -- 06/09/251 -- -- -- 72 19 100 % -- 06/08/252323 -- -- -- 72 19 99 % -- 06/08/252021 130/50 37.2 C (99 F) Oral 70 20 100 % -- 06/08/252002 -- -- -- 65 18 100 % -- 06/08/251811 104/54 37.1 C (98.8 F) -- 67 18 100 % -- 06/08/25 180 (!) 106/37 -- -- 61 -- -- -- 06/08/25 1800 (!) 106/37 -- -- 65 -- -- -- 06/08/25 1745 (!) 105/40 -- -- 61 -- -- -- 06/08/25 1733 -- -- -- 62 -- 100 % -- 06/08/25 173 100/64 -- -- 61 -- -- -- [...] 18 ALT 9 9 9 Recent Labs 06/07/2533406/08/2511406/09/25 0633 06/09/25 0735 WBC 7.4 6.5 6.7 -- HGB 7.5* 7.7* 6.9* 7.3* HCT 24.4* 24.6* 22.0* 22.8* PLT 234 236 230 -- Micro: No results for input(s): "COVID19" in the last 72 hours. Collected Updated Procedure Result Status 06/07/2025 1129 06/07/2025 1142 Aerobic and Anaerobic Culture with Stain [[id number]] Body Fluid from Pleural Cavity, Left In process Component Value No component results 06/07/2025 1129 06/09/2025 0748 Culture, Aerobic Bacteria with Gram Stain [[id number]] Body Fluid from Pleural Cavity, Left Preliminary result Component Value Culture No growth at 48 hours P Gram Stain Result Few Polymorphonuclear leukocytes per low power field P No organisms seen P 06/07/2025 1129 06/07/2025 1142 Anaerobic culture [[id number]] Body Fluid from Pleural Cavity, Left In process Component Value No component results 06/07/2025 1025 06/09/2025 1301 Blood culture Site #2 - Suspected Infection [[id number]] Blood, Venous Preliminary result Component Value Blood Culture No growth at 48 hours P 06/07/2025 1014 06/09/2025 1301 Blood culture Site #1 - Suspected Infection [[id number]] Blood, Venous Preliminary result Component Value Blood Culture No growth at 48 hours P 06/06/2025 1732 06/08/2025 1413 Respiratory culture and Stain [[id number]] (Abnormal) Sputum Preliminary result Component Value Respiratory [...] 06/06/2025 1732 06/07/2025 1158 Pneumonia PCR Panel [[id number]] (Abnormal) Sputum Final result Component Value Staphylococcus [...] 06/06/2025 1429 06/09/2025 0801 Culture, Cath Tip [[id number]] (Abnormal) Foreign Body from Cannula Final result Component Value Culture >15 CFU Serratia marcescens Abnormal This organism possesses an ampC beta-lactamase. For serious infections outside of the urinary tract, third generation cephalosporins may not be effective, even if test results indicate the organism is susceptible. 06/02/2025173506/02/2025 2059 Gastrointestinal PCR Panel [[id number]] Stool from Per Rectum Final result Component [...] Detected Giardia lamblia Not Detected Adenovirus F 40 Not Detected Astrovirus Not Detected Norovirus GI/GII Not Detected Rotavirus A Not Detected Sapovirus Not Detected 06/02/2025173506/02/20251954 C. DIFFICILE by PCR with Reflex to EIA [[id number]] (Abnormal) Stool from Per Rectum Final result Component Value C. difficile toxin PCR Detected Abnormal 06/02/2025 1736 06/02/20252207 C. difficile Toxins EIA [[id number]] (Abnormal) Stool from Per Rectum Final result Component Value C difficile Toxins A+B, EIA Positive Abnormal Lines: RIJ HD cath (06/08/25) Radiography/Echo/Other: XR chest 1 view [[id number]] Collected: 06/08/251401 Order Status: Completed Updated: 06/08/251404 [...] 06/08/2025 2:04 PM EDT US guided thoracentesis [[id number]] Collected: 06/07/25 140 Order Status: Completed Updated: 06/07/251409 Narrative: Patient [...] 2:09 PM EDT XR chest 1 view [[id number]] Collected: 06/06/252039 Order Status: Completed Updated: 06/06/252042 [...] PM EDT IR CVC tunneled catheter removal [[id number]] Collected: 06/06/25 1546 Order Status: Completed Updated: [...] 3:46 PM EDT XR chest 1 view [[id number]] Collected: 06/01/25 1217 Order Status: Completed Updated: [...] benefits, and consideration of use of antimicrobials. [facility] Hospitalist Progress note [phone]: Please page me ([phone]) for patient care issues. [phone]: Please page [facility] Hospitalist for any issues. 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 She was admitted to hospital on ICU floor given Vent status but followed by hospital medicine, pulmonology and nephrology during stay. Saturation Equipment Operator consulted for management of tube feeding = [...] ml LABS: CBC: Recent Labs 06/07/25 0335 06/08/255 06/09/25 0633 06/09/25 0735 WBC 7.4 6.5 6.7 -- RBC 2.89* 2.96* 2.66* -- HGB 7.5* 7.7* 6.9* 7.3* HCT 24.4* 24.6* 22.0* 22.8* MCV 84.4 83.1 82.7 -- RDW 19.2* 19.2* 19.1* -- PLT 234 236 230 -- BMP: Recent Labs 06/07/25 0335 06/08/25 0115 06/09/25 0541 NA 133* 129* 136 K 3.7 3.8 3.8 CL 96* 95* 99 CO2 26 24 26 BUN 40* 51* 26* CREATININE 3.68* 4.25* 2.37* GLUCOSE 119* 150* 101 CALCIUM 9.4 9.1 9.1 ANIONGAP 11 10 11 LIVER PROFILE: Recent Labs 06/07/25 0335 06/08/25 0115 06/09/25 0541 AST 19 16 18 [...] Facility - Pending the following -clinical improvement, home care consultant recommendations Total time spent (which include face to face and non face to face encounters) : 50 minutes Toxic drug monitoring/narrow therapeutic index drug monitoring : # Drug name : # Route administered : # Method of monitoring : No emergency contact information on file. Advance Directive: Full Code Discharge planning: TBD Raine Etienne MD Division of Hospitalist Medicine Inpatient Medical Services/[facility] [1] [2] atorvastatin, 40 mg, Per G [...] petrolatum, , Topical, 3 times per day [facility] Respiratory Care Department Progress Note Spontaneous [...] ABG results No results for input(s): "PHART", "KSH8RIZ", "PO2ART", "CNT9KHI", "SO2ART", "W6AFEAEV" in the last 72 hours. Does this patient meet criteria for termination of mechanical ventilation No - Chronic Vent Dependent Name of physician notified via secure chat or in person : N/A (NA if patient did not meet criteria) Comments: Thank you for involving Respiratory in the care of this patient, Images from the original note were not included. [facility], Pulmonary Medicine [address] [place], [place] [id number] Patient - Rosa Myers, Age - 75 y.o. - 1950 Room Number - 222-04/222-04 A Consulting - Raine Etienne MD Primary Care Physician - [facility] file[id number] Date of Admission - 06/01/2025 10:53 AM [...] PRN Meds[4] Labs: CBC: Recent Labs 06/06/25 0514 06/07/25 0335 06/08/25 0115 WBC 5.9 7.4 6.5 [...] Code Discharge planning: Anticipate discharge back to [facility] once medically stable Will not be [...] mg, 2.5 mg, Nebulization, q6h PRN, Neelima Hanks, PROPERTY MANAGEMENT COORDINATOR - [employer] SERVICE TECHNICIAN atorvastatin (Lipitor) tablet 40 mg, 40 mg, Per G Tube, Daily, Grzegorz Chatterjee MD, 40 mg at 06/08/25911 busPIRone (Buspar) tablet 5 mg, 5 mg, Per G Tube, TID, Grzegorz Chatterjee MD, 5 mg at 06/08/25 09 [Held by provider] carvedilol (Coreg) tablet 3.125 [...] Units, IntraCATHeter, PRN, Mi Singh APRN - [employer] SERVICE TECHNICIAN, 1,600 Units at 06/04/251922 heparin injection 1,200-2,000 Units, 1,200-2,000 Units, IntraCATHeter, PRN, Mi Singh APRN - [employer] SERVICE TECHNICIAN, 1,600 Units at 06/04/251921 heparin injection 5,000 [...] q4h, RENITA Tyler CNP, 3 mL at 06/08/25 0835 miconazole (Micotin) 2 % powder, , Topical, BID, RENITA Gtz CNP, Given at 06/08/25 0924 midodrine (Proamatine) tablet 10 mg, 10 mg, Per G Tube, TID, Grzegorz Chatterjee MD, 10 mg at 06/08/25 0912 morphine injection 1 mg, 1 mg, IntraVENous, [...] sodium chloride, sodium chloride, stomahesive in petrolatum [facility] Nephrology Progress Note / 75 y.o. year old female who we are seeing in consultation for ESRD and management of HD. Follows with Dr. Loredo and an outpatient HD schedule M- at [facility]. 06/04: last iHD tx, 1.6 L [...] 83.1 PLT 197 234 236 Recent Labs 06/06/2551306/07/255 06/08/25 0115 NA 134* 133* 129* K [...] hemodialysis RECOMMENDATIONS: - HD schedule M- at [facility] [place], follows with Dr. Loredo. S/p iHD 06/04 [...] Toney MD at 06/08/2025 6:11 PM EDT [facility] Hospitalist Progress note [phone]: Please page me ([phone]) for patient care issues. [phone]: Please page [facility] Hospitalist for any issues. 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 She was admitted to hospital on ICU floor given Vent status but followed by hospital medicine, pulmonology and nephrology during stay. Saturation Equipment Operator consulted for management of tube feeding = [...] 3929.67 ml LABS: CBC: Recent Labs 06/06/25 0514 06/07/25 0335 06/08/25 0115 WBC 5.9 7.4 6.5 RBC 2.84* 2.89* 2.96* HGB 7.2* 7.5* 7.7* HCT 24.5* 24.4* 24.6* MCV 86.3 84.4 83.1 RDW 19.4* 19.2* 19.2* PLT 197 234 236 BMP: Recent Labs 06/06/25 0506/07/2533406/08/25114 NA 134* 133* 129* K 3.7 3.7 3.8 CL 98 96* 95* CO2 26 26 24 BUN 30* 40* 51* CREATININE 2.79* 3.68* 4.25* GLUCOSE 145* 119* 150* CALCIUM 9.0 9.4 9.1 ANIONGAP 10 11 10 LIVER PROFILE: Recent Labs 06/06/2551306/07/2533406/08/25114 AST 21 19 16 ALT 12 9 [...] Facility - Pending the following -clinical improvement, home care consultant recommendations Total time spent (which include face to face and non face to face encounters) : 60 minutes Toxic drug monitoring/narrow therapeutic index drug monitoring : # Drug name : # Route administered : # Method of monitoring : No emergency contact information on file. Advance Directive: Full Code Discharge planning: TBD Raine Etienne MD Division of Hospitalist Medicine Inpatient Medical Services/[facility] [1] [2] atorvastatin, 40 mg, Per G [...] petrolatum, , Topical, 3 times per day [facility] Nephrology Progress Note Subjective/ 75 y.o. year old female who we are seeing in consultation for ESRD and management of HD. Follows with Dr. Loredo and an outpatient HD schedule M- at [facility]. S/p iHD 06/04 for 1.6 L [...] Meds[2] PRN Meds:PRN Meds[3] Data/ Recent Labs 06/05/2530506/06/25 0514 06/07/25 0335 WBC 5.7 5.9 7.4 [...] hemodialysis RECOMMENDATIONS: - [facility] with Dr. Loredo. S/p iHD 06/04 [...] the above assessment and plan with the LOOP TACKER. I agree with above note. HD catheter [...] (temporalis), Thigh (quadraceps) Fluid Accumulation: Severe Extremities Well Tester Strength: Normal office sweeper strength Nutrition Assessment: 75 year old woman who remains admitted to [facility] with anemia from SNF. +1 [...] On: Kcal/kg Weight Used for Energy Requirements: [place] Weight for Energy Calculation (kg): 57 kg Total Energy Requirements (kcals/day): 9542-8963 (25-30 kcal/kg IBW) Weight Used for Protein Requirements: [place] Weight in Kg Used for Protein Requirements: [...] 226# 05/25/25) % Weight Change (Calculated): -8.4 [place] Body Weight (lbs) (Calculated): 125 lbs [place] Body Weight (Kg) (Calculated): 57 kg % [place] Body Weight (Calculated): 177.4 % BMI (kg/m2) [...] Enteral Nutrition Raquel Brady RDN, LDN, Contact: *[phone] Images from the original note were not included. [facility], Pulmonary Medicine [address] [place] [id number] Patient - Rosa Myers, Age - 75 y.o. - 1950 Room Number - 222-04/222-04 A Consulting - Geno Waddell MD Primary Care Physician - No primary care provider on file. [facility] # - [id number] Date of Admission - 06/01/2025 10:53 AM [...] Code Discharge planning: Anticipate discharge back to [facility] once medically stable Case discussed with nurse and patient Questions and concerns addressed. [1] Patient Active Problem List Diagnosis Anemia Anemia, unspecified type Moderate malnutrition (CMS/HCC) (FORMERLY [facility]) [2] No Known Allergies [3] Current Facility-Administered [...] RENITA Clifford CNP, 1,600 Units at 06/04/25 1922 heparin injection 5,000 Units, 5,000 Units, SubCUTAneous, [...] 10 mL injection, 40 mg, IntraVENous, Nightly, Grzeogrz Chatterjee MD, 40 mg at 06/06/252051 polyethylene [...] from the original note were not included. [facility] Wound Care Progress Note Rosa Myers AGE: 75 y.o. GENDER: female : 1950 Subjective: HISTORY of PRESENT ILLNESS HPI Rosa Myers is a 75 y.o. female who presents for a wound follow up. HPI: Ms. Myers is a 75 y.o. female who presents to the emergency department with chief complaint of abnormal blood counts. Patient was sent to us from her snf for lab drawl that shows hemoglobin of [...] with NS, apply skin barrier wipe, leave SHREDDER PICKER daily and PRN Right/Left abdominal skin fold - Fungal: -cleanse with soap and water and dry thoroughly, apply Miconazole powder, leave SHREDDER PICKER BID and PRN Sacral Stage 3 pressure injury(POA): - cleanse with soap and water, apply ET mix TID and PRN, leave SHREDDER PICKER Sacral MASD d/t friction/fluids: - cleanse with soap and water, apply ET mix TID and PRN, leave PRAVEEN Right medial thigh - stage 3 Pressure injury (POA): - cleanse with soap and water, apply ET mix TID and PRN, leave SHREDDER PICKER -continue ICU bed -Q2hr/PRN turns -glide sheets for T&R -continence checks Q1-2 Hrs/PRN Nutritional support Wound Care to follow Recommend to follow up at [facility] after hospital discharge. Any questions or concerns please secure chat "[facility] wound/ostomy". I personally obtained the [...] Barraza DO at 06/11/2025 4:05 PM EDT [facility] Hospitalist Progress Note 06/07/2025 Subjective: Admit Date: 06/01/2025 PCP: No primary care provider on file. 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 She was admitted to hospital on ICU floor given Vent status but followed by hospital medicine, pulmonology and nephrology during stay. Saturation Equipment Operator consulted for management of tube feeding = [...] care with IR, nephrology - she will [place] need a temporary dialysis port placed with [...] PLT 234 197 234 BMP: Recent Labs 06/05/25 0306 06/06/25 0514 06/07/25 0335 NA 137 134* 133* K 3.9 3.7 3.7 CL 100 98 96* CO2 27 26 26 BUN 18 30* 40* CREATININE 1.79* 2.79* 3.68* GLUCOSE 67* 145* 119* CALCIUM 8.9 9.0 9.4 ANIONGAP 10 10 11 LIVER PROFILE: Recent Labs 06/05/25 0306 06/06/25 0514 06/07/25 [...] not medically stable for transfer back to [facility]. ID consulted for central line being [...] Discharge - Date - - Location - [facility] - Pending the following - [...] Geno Waddell MD Division of Hospitalist Medicine [facility] [1] No past medical history on [...] chloride, sodium chloride, stomahesive in petrolatum [4] [facility] Respiratory Care Department Progress Note Spontaneous [...] ABG results No results for input(s): "PHART", "WOJ9CDI", "PO2ART", "VTI9XQE", "SO2ART", "D8HVERRR" in the last 72 hours. Does this patient meet criteria for termination of mechanical ventilation No - Chronic Vent Dependent Name of physician notified via secure chat or in person : n/a (NA if patient did not meet criteria) Comments: Thank you for involving Respiratory in the care of this patient, [facility] Nephrology Progress Note Subjective/ 75 y.o. year old female who we are seeing in consultation for ESRD and management of HD. Follow[facility] with Dr. Loredo [facility] [facility] S/p iHD 06/04 for 1.6 L [...] hemodialysis RECOMMENDATIONS: - HD schedule M-F at [facility] [place], follows with Dr. Loredo. S/p iHD 06/04 [...] from the original note were not included. [facility] [place] [address] [place] [id number] Patient - Rosa Myers, Age - 75 y.o. - 1950 Room Number - 222-04/[id number] A Consulting - Geno Waddell MD Primary Care Physician - No [facility] provider [facility] file[id number] Date of Admission - 06/01/2025 10:53 AM [...] Medications[3] PRN Meds[4] Labs: CBC: Recent Labs 06/04/2543106/05/2530506/06/25 0514 WBC 6.2 5.7 5.9 HGB 7.4* 7.6* 7.2* HCT 23.8* 24.8* 24.5* PLT 247 234 197 MCV 82.6 84.6 86.3 RDW 19.5* 19.4* 19.4* BMP: Recent Labs 06/04/2543106/05/2530506/06/25 0514 NA 130* [...] Units, IntraCATHeter, PRN, Mi Singh APRN - [employer] SERVICE TECHNICIAN, 1,600 Units at 06/04/251922 heparin injection 1,200-2,000 Units, 1,200-2,000 Units, IntraCATHeter, PRN, Mi Singh APRN - [employer] SERVICE TECHNICIAN, 1,600 Units at 06/04/251921 heparin injection 5,000 Units, 5,000 Units, SubCUTAneous, 2 times per day, Sharyn Amaya MD, 5,000 Units at 06/06/25843 insulin glargine (Lantus) injection 25 Units, 25 Units, SubCUTAneous, BID, Sharyn Amaya MD, 25 Units at 06/06/25843 Insulin Lispro (Humalog) injection 0-6 Units, 0-6 Units, SubCUTAneous, q6h, Grzegorz Cahtterjee MD, 1 Units at 06/06/25525 miconazole (Micotin) [...] from the original note were not included. [facility] Wound Care Progress Note Rosa Myers AGE: 75 y.o. GENDER: female : 1950 Subjective: HISTORY of PRESENT ILLNESS HPI Rosa Myers is a 75 y.o. female who presents for a wound consult. HPI: 75 y.o. female who presents to the emergency department with chief complaint of abnormal blood counts. Patient was sent to us from her snf for lab drawl that shows hemoglobin of [...] with soap and water, pat dry, leave SHREDDER PICKER daily and PRN Left heel Stage 2 pressure injury (POA): -cleanse with NS, apply skin barrier wipe, leave PRAVEEN daily and PRN Right/Left abdominal skin fold - Fungal: -cleanse with soap and water and dry thoroughly, apply Miconazole powder, leave SHREDDER PICKER BID and PRN Sacral Stage 3 pressure injury(POA): Sacral MASD d/t friction/fluids: Right medial thigh - stage 3 Pressure injury (POA): -cleanse with soap and water, apply ET mix TID and PRN, leave PRAVEEN -continue ICU bed -Q2hr/PRN turns -glide sheets for T&R -continence checks Q1-2 Hrs/PRN Nutritional support Wound Care to follow Recommend to follow up at [facility] after hospital discharge. Any questions or concerns please secure chat "[facility] wound/ostomy". 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 She was admitted to hospital on ICU floor given Vent status but followed by hospital medicine, pulmonology and nephrology during stay. Saturation Equipment Operator consulted for management of tube feeding = [...] LABS: CBC: Recent Labs 06/04/25 0432 06/05/25 03006/06/25 0514 WBC 6.2 5.7 5.9 RBC 2.88* 2.93* 2.84* HGB 7.4* 7.6* 7.2* HCT 23.8* 24.8* 24.5* MCV 82.6 84.6 86.3 RDW 19.5* 19.4* 19.4* PLT 247 234 197 BMP: Recent Labs 06/04/25 04306/05/25 03006/06/25 0514 NA 130* 137 134* K 3.4* 3.9 3.7 CL 93* 100 98 CO2 26 27 26 BUN 43* 18 30* CREATININE 3.51* 1.79* 2.79* GLUCOSE 147* 67* 145* CALCIUM 9.0 8.9 9.0 ANIONGAP 11 10 10 LIVER PROFILE: Recent Labs 06/04/25 0432 06/05/25 0306 06/06/25 [...] Objective: Vitals: BP (!) 111/42 [facility] 06-21-2025 Nurse Note Order to remove tunneled central venous catheter. Lab values and allergies reviewed. Order verified. Patient placed supine, and dressing removed. Line site prepared with sterile towels and antiseptic spray. Sutures removed. Breathing instructions given. Line removed on exhalation. A 6 salvadorean 23 cm tunneled central venous catheter was removed from the patient's left internal jugular vein. Manual pressure was held for 5 minutes. No bleeding or hematoma noted. Sterile occlusive dressing placed. Patient tolerated the procedure well. RN updated. 1.8L removed Tolerated well Patient Name: Rosa Myers Patient : 1950 Acct: [id number] Date of Admission: 06/01/2025 Room/Bed: [id number] A Code Status: Full Code Allergies: Allergies[1] [...] - Before each treatment: Dialysis Machine No.: [id number] RO Machine Number: [id number] Dialyzer Lot No.: [id number] Tubing Lot Number: [id number] All Connections Secure: Yes Venous Parameters Set: Yes Arterial Parameters Set: Yes NS Bag: Yes Saline Line Double Clamped: Yes Dialyzer: Nipro Prime Volume (mL): 200 mL RO Machine Number: [id number] RO Machine Log Sheet Completed: Yes Machine Alarm Self Test: Completed, Passed (06/20/25931) Air Foam Detector: Tested, Proper Function, pH Reading Extracorporeal Circuit Tested for Integrity: Yes Machine Conductivity: 13.9 Manual Conductivity: 13.8 Manual Ph: 7.2 Bleach Test (Neg): Yes Bath Temperature: 36 C (96.8 F) Conductivity Meter Serial #: [id number] Machine Functioning Alarm Free? Yes Dialysis Bath: K+ (Potassium): 3 Ca+ (Calcium): 2.5 Na+ (Sodium): 137 HCO3 (Bicarb): 35 Bicarbonate Concentrate Lot No.: [id number] Acid Concentrate Lot No.: [id number] Chlorine Testing - Before each treatment and every 4 hours: Time On: 32 Time Off: 1305 Treatment Goal: 2L Weight [...] Name: Rosa Myers Patient : 1950 Acct: [id number] Date of Admission: 06/01/2025 Room[facility]: [facility] A Code Status: Full Code Allergies: Allergies[1] [...] - Before each treatment: Dialysis Machine No.: [id number] RO Machine Number: [id number] Dialyzer Lot No.: [id number] Tubing Lot Number: [id number] All Connections Secure: Yes Venous Parameters Set: Yes Arterial Parameters Set: Yes NS Bag: Yes Saline Line Double Clamped: Yes Dialyzer: Nipro Prime Volume (mL): 200 mL RO Machine Number: [id number] RO Machine Log Sheet Completed: Yes Machine Alarm Self Test: Completed, Passed (06/18/25 0942) Air Foam Detector: Tested, Proper Function, pH Reading Extracorporeal Circuit Tested for Integrity: Yes Machine Conductivity: 13.9 Manual Conductivity: 14 Manual Ph: 7.2 Bleach Test (Neg): Yes Bath Temperature: 36 C (96.8 F) Conductivity Meter Serial #: [id number] Machine Functioning Alarm Free? Yes Dialysis Bath: K+ (Potassium): 3 Ca+ (Calcium): 2.5 Na+ (Sodium): 137 HCO3 (Bicarb): 35 Bicarbonate Concentrate Lot No.: [id number] Acid Concentrate Lot No.: [id number] Chlorine Testing - Before each treatment and [...] 2333 118/65 -- -- -- -- 06/17/25 233 (!) 81/58 -- -- -- -- 06/17/252004 [...] Name: Rosa Myers Patient : 1950 Acct: [id number] Date of Admission: 06/01/2025 Room/Bed: A Code [...] 0836 Alert (0) -- Regular T-Piece Diminished Pale;[place] Warm;Dry Soft;Nondistended Active Other (Comment) 06/15/25 1318 Alert (0) x2 Regular T-Piece Diminished Pale;[place] Warm;Dry Soft;Nondistended Active Other (Comment) Labs Lab [...] - Before each treatment: Dialysis Machine No.: [id number] RO Machine Number: [id number] Dialyzer Lot No.: [id number] Tubing Lot Number: [id number] All Connections Secure: Yes Venous Parameters Set: Yes Arterial Parameters Set: Yes NS Bag: Yes Saline Line Double Clamped: Yes Dialyzer: Nipro Prime Volume (mL): 200 mL RO Machine Number: [id number] RO Machine Log Sheet Completed: Yes Machine Alarm Self Test: Completed, Passed (06/15/25906) Air Foam Detector: Tested, Proper Function, pH Reading Extracorporeal Circuit Tested for Integrity: Yes Machine Conductivity: 13.6 Manual Conductivity: 13.8 Manual Ph: 7.5 Bleach Test (Neg): Yes Bath Temperature: 36 C (96.8 F) Conductivity Meter Serial #: [id number] Machine Functioning Alarm Free? Yes Dialysis Bath: K+ (Potassium): 3 Ca+ (Calcium): 2.5 Na+ (Sodium): 137 HCO3 (Bicarb): 35 Bicarbonate Concentrate Lot No.: [id number] Acid Concentrate Lot No.: [id number] Chlorine Testing - Before each treatment and [...] (mmHg) TMP DFR Access Visible Intra-Hemodialysis Comments 06/15/25906 350 mL/min -110 mmHg 120 mmHg 110 [...] 600 Yes LVSD, watching tv, Clyde Singh [employer] SERVICE TECHNICIAN at bedside 06/15/25 1100 350 mL/min -130 [...] -- -- -- 1.651 m (5' 5") 06/15/2535 -- -- -- 74 22 100 % -- 06/15/255 -- -- -- 75 (!) 28 100 % -- 06/15/25321 -- -- -- 75 23 100 % -- 06/14/252302 -- -- -- 68 (!) 32 100 % -- 06/14/252257 -- -- -- 68 18 100 % -- 06/14/252133 (!) 119/46 -- -- 70 -- 100 [...] Name: Rosa Myers Patient : 1950 Acct: [id number] Date of Admission: 06/01/2025 Room/Bed: 222-04/222-04 A [...] (0) REJI Regular Other (Comment) T-Piece Diminished [place] Warm;Dry Soft Active Generalized Non-pitting 06/13/25 1115 -- -- -- -- -- -- -- -- -- Active Generalized Non-pitting 06/13/25 1536 Alert (0) REJI Regular -- T-Piece -- [place] Warm;Dry Soft Active Generalized Non-pitting Labs Lab Results Component Value Date/Time WBC 7.2 06/13/2025 0433 HGB 8.4 (L) 06/13/2025 0433 HCT 26.6 (L) 06/13/2025 0433 PLT 235 06/13/2025 0433 NA 134 (L) 06/13/2025 0433 K 3.5 06/13/2025 0433 CL 97 (L) 06/13/2025 0433 CO2 25 06/13/2025 0433 BUN 39 (H) 06/13/2025 043 CREATININE 3.37 (H) 06/13/2025 0433 CALCIUM 9.3 06/13/2025 0433 IV Drips and Rate/Dose Continuous Meds[3] Safety - Before each treatment: Dialysis Machine No.: [id number] RO Machine Number: [id number] Dialyzer Lot No.: [id number] Tubing Lot Number: [id number] All Connections Secure: Yes Venous Parameters Set: Yes Arterial Parameters Set: Yes NS Bag: Yes Saline Line Double Clamped: Yes Dialyzer: Nipro Prime Volume (mL): 200 mL RO Machine Number: [id number] RO Machine Log Sheet Completed: Yes Machine Alarm Self Test: Completed, Passed (1115) (06/13/25 111) Air Foam Detector: Tested, pH Reading, Proper Function Extracorporeal Circuit Tested for Integrity: Yes Machine Conductivity: 13.9 Manual Conductivity: 13.8 Manual Ph: 7.2 Bleach Test (Neg): Yes Bath Temperature: 36 C (96.8 F) Conductivity Meter Serial #: [id number] Machine Functioning Alarm Free? Yes Dialysis Bath: K+ (Potassium): 3 Ca+ (Calcium): 2.5 Na+ (Sodium): 137 HCO3 (Bicarb): 35 Bicarbonate Concentrate Lot No.: [id number] Acid Concentrate Lot No.: [id number] Chlorine Testing - Before each treatment and [...] 150 mmHg 80 600 Yes bfr increased, staff development coordinator at bedside for meds 06/13/25 1145 400 [...] -150 mmHg 170 mmHg 70 600 Yes staff development coordinator at bedside for routine glucose check 06/13/25 [...] 68 -- 100 % 06/13/25 1119 (!) 107/48 36.7 C (98.1 F) Oral 62 20 [...] heel, Elbows, Occiput and ears all intact. [place] and blanchable tissues noted to right heel. Pt currently followed by Wound LOOP TACKER group for wounds to forehead, nose, left heel, sacrum, right medial thigh, and MASD to sacrum, and fungal dermatitis to abdominal folds. For the above wound assessment and treatment plan, please see Wound/Ostomy LOOP TACKER progress notes. Prevention Measures in place, including: Willis sheet with pillows/wedges, Foam heel protector (obtained [...] Patient arrived from 222 on vent to [facility], verbal consent was obtained. Patient was placed supine on exam table prepped and draped in sterile fashion. Telemetry monitors placed, vitals monitored. 1.6L removed with tx, UF goal decreased due to BP trending downward Overall tolerated well No s/s of infection with dressing change Patient Name: Rosa Myers Patient : 1950 Acct: [id number] Date of Admission: 06/01/2025 Room/Bed: [facility]/222-04 A Code Status: Full Code Allergies: Allergies[1] [...] Lab Results Component Value Date/Time WBC 7.4 06/11/2025 0552 HGB 8.3 (L) 06/11/2025 0552 HCT 25.8 (L) 06/11/2025 0552 PLT 235 06/11/2025 0552 NA 132 (L) 06/11/2025 0552 K 3.9 06/11/2025 0552 CL 99 06/11/2025 0552 CO2 22 (L) 06/11/2025 0552 BUN 49 (H) 06/11/2025 0552 CREATININE 4.10 (H) 06/11/2025 0552 CALCIUM 9.2 06/11/2025 0552 IV Drips and Rate/Dose Continuous Meds[3] Safety - Before each treatment: Dialysis Machine No.: [id number] RO Machine Number: [id number] Dialyzer Lot No.: [id number] Tubing Lot Number: [id number] All Connections Secure: Yes Venous Parameters Set: Yes Arterial Parameters Set: Yes NS Bag: Yes Saline Line Double Clamped: Yes Dialyzer: Nipro Prime Volume (mL): 200 mL RO Machine Number: [id number] RO Machine Log Sheet Completed: Yes Machine Alarm Self Test: Completed, Passed (06/11/25 1005) Air Foam Detector: Tested, Proper Function, pH Reading Extracorporeal Circuit Tested for Integrity: Yes Machine Conductivity: 13.8 Manual Conductivity: 13.8 Manual Ph: 7.5 Bleach Test (Neg): Yes Bath Temperature: 36 C (96.8 F) Conductivity Meter Serial #: [id number] Machine Functioning Alarm Free? Yes Dialysis Bath: K+ (Potassium): 3 Ca+ (Calcium): 2.5 Na+ (Sodium): 137 HCO3 (Bicarb): 35 Bicarbonate Concentrate Lot No.: [id number] Acid Concentrate Lot No.: [id number] Chlorine Testing - Before each treatment and [...] mmHg 110 600 Yes LVSD, Clyde Singh [employer] SERVICE TECHNICIAN at bedside, no sign of acute distress [...] Oral 63 20 100 % -- -- 06/11/25322 -- -- -- 66 22 97 % -- -- 06/11/25320 -- -- -- 76 14 100 % [...] heel, Elbows, Occiput and ears all intact. [place] and blanchable tissues noted to right heel. Pt currently followed by Wound LOOP TACKER group for wounds to forehead, nose, left heel, sacrum, right medial thigh, and MASD to sacrum, and fungal dermatitis to abdominal folds. For the above wound assessments and treatment plan, please see Wound/Ostomy LOOP TACKER progress notes. Prevention Measures in place, including: Willis sheet with pillows/wedges, Foam heel protector (obtained [...] Name: Rosa Myers Patient : 1950 Acct: [id number] Date of Admission: 06/01/2025 Room/Bed: 222-/222-04 A [...] Lab Results Component Value Date/Time WBC 6.2 06/04/2025431 HGB 7.4 (L) 06/04/2025431 HCT 23.8 (L) 06/04/2025431 PLT 247 06/04/2025431 NA 130 (L) 06/04/2025431 K 3.4 (L) 06/04/2025431 CL 93 (L) 06/04/2025431 CO2 26 06/04/2025431 BUN 43 (H) 06/04/2025431 CREATININE 3.51 (H) 06/04/2025431 CALCIUM 9.0 06/04/2025431 IV Drips and Rate/Dose Continuous Meds[3] Safety - Before each treatment: Dialysis Machine No.: [id number] RO Machine Number: [id number] Dialyzer Lot No.: [id number] Tubing Lot Number: [id number] All Connections Secure: Yes Venous Parameters Set: Yes Arterial Parameters Set: Yes NS Bag: Yes Saline Line Double Clamped: Yes Dialyzer: Nipro Prime Volume (mL): 200 mL RO Machine Number: [id number] RO Machine Log Sheet Completed: Yes Machine Alarm Self Test: Completed, Passed (06/04/251522) Air Foam Detector: Tested, Proper Function, pH Reading Extracorporeal Circuit Tested for Integrity: Yes Machine Conductivity: 13.9 Manual Conductivity: 13.6 Manual Ph: 7.4 Bleach Test (Neg): Yes Bath Temperature: 36 C (96.8 F) Conductivity Meter Serial #: [id number] Machine Functioning Alarm Free? Yes Dialysis Bath: K+ (Potassium): 4 Ca+ (Calcium): 2.5 Na+ (Sodium): 137 HCO3 (Bicarb): 35 Bicarbonate Concentrate Lot No.: [id number] Acid Concentrate Lot No.: [id number] Chlorine Testing - Before each treatment and every 4 hours: Time On: 1522 Time Off: 1922 Treatment Goal: 3L Weight [...] 06/04/251922 119/54 -- 60 17 100 % 06/04/25 [...] 2202 116/55 -- 73 19 100 % 06/03/252025 [...] Name: Rosa Myers Patient : 1950 Acct: [id number] Date of Admission: 06/01/2025 Room/Bed: 222/ A [...] +1 +1 06/01/25 2100 Alert (0) -- [place] Warm;Dry Soft -- Generalized -- Non-pitting Non-pitting [...] - Before each treatment: Dialysis Machine No.: [id number] RO Machine Number: [id number] Dialyzer Lot No.: [id number] Tubing Lot Number: [id number] All Connections Secure: Yes Venous Parameters Set: Yes Arterial Parameters Set: Yes NS Bag: Yes Saline Line Double Clamped: Yes Dialyzer: Nipro Prime Volume (mL): 200 mL RO Machine Number: [id number] RO Machine Log Sheet Completed: Yes Machine Alarm Self Test: Completed, Passed (2119) (06/01/252099) Air Foam Detector: Tested, Proper Function Extracorporeal Circuit Tested for Integrity: Yes Machine Conductivity: 13.8 Manual Conductivity: 13.8 Manual Ph: 7.6 Bleach Test (Neg): Yes Bath Temperature: 36 C (96.8 F) Conductivity Meter Serial #: [id number] Machine Functioning Alarm Free? Yes Dialysis Bath: K+ (Potassium): 3 Ca+ (Calcium): 2.5 Na+ (Sodium): 137 HCO3 (Bicarb): 35 Bicarbonate Concentrate Lot No.: [id number] Acid Concentrate Lot No.: [id number] Chlorine Testing - Before each treatment and every 4 hours: Time On: 2128 Time Off: 0 Treatment Goal: 3.5L 1st check: less than [...] initiated, lines secured, call light within reach 06/01/252144 350 mL/min 1140 ml/hr -70 mmHg 80 [...] 114/48 -- -- 61 15 97 % 06/01/252128 116/56 -- -- 63 15 100 % [...] unspecified type [3] documented in this encounter [facility] 06-21-2025 Miscellaneous Notes Confirmed pickup time of 5pm by transport [email or web address] at phone number [phone]. Location of facility drop off is to return back to [facility]. Facility notified via [facility] notified on secure chat. Transport requested 5PM in [facility]. Awaiting time confirmation. Discharge order noted. Anticipate tunneled line removal around 2PM today. Tasked APARTMENT HOTEL MANAGER to send discharge paperwork and MAR to [facility]. Tasked APARTMENT HOTEL MANAGER to arrange ambulance/ ACLS transport with trach/ vent/ O2 capabilities for return to [facility]. Transport arranged for 5pm. Updated bedside RN. Discharge med list transmitted to RETURN BACK TO [facility] via [facility]port per TCC request. Care Management Progress Note Short Medical why still here: chronic trach/ vent/ PEG/ hemodialysis. IV antibiotics are complete today. Need to remove tunneled line that was placed for IV antibiotics. Dr Amaya aware. Planned Discharge Disposition: Group Home/Residential Care ([facility], no precert needed to return) Barriers/Today we still Wait: Administering IV medications, Procedure (comment) (needs tunneled line removed prior to transfer back to [facility]) Length of Stay (Days): 20 GMLOS: 3.9 Care Management Progress Note Short Medical why still here: receiving IV antibiotics through 06/21. SNF unable to accommodate. Planned Discharge Disposition: Group Home/Residential Care ([facility], no precert needed to return) Barriers/Today we still Wait: Administering IV medications Length of Stay (Days): 19 GMLOS: 3.9 Care Management Progress Note Short Medical why still here: receiving IV antibiotics through 06/21. SNF unable to accommodate. Planned Discharge Disposition: Group Home/Residential Care ([facility], no precert needed to return) Barriers/Today we still Wait: Administering IV medications Length of Stay (Days): 18 GMLOS: 3.9 distillery manager to follow for discharge planning. Care Management Progress Note Short Medical why still here: receiving IV antibiotics through 06/21. SNF unable to accommodate. Planned Discharge Disposition: Group Home/Residential Care ([facility]) Barriers/Today we still Wait: Administering IV medications Length of Stay (Days): 17 GMLOS: 3.9 distillery manager to follow for discharge planning. Patient remains stable on chronic vent. Discussed with Marion MICHELE today in ICU, no new overnight concerns. Nursing facility unable to accept patient with tunneled line for IV antibiotics due to staffing. Patient will remain at [facility] through 06/21 to complete Abx [...] for IV antibiotics due to lack of ambulatory services representative on site. IP CONSULT TO WOUND PREVENTION INPATIENT CONSULT TO WOUND CARE PROVIDERS IP CONSULT TO PULMONOLOGY IP CONSULT TO DIETITIAN IP CONSULT TO NEPHROLOGY IP CONSULT TO INFECTIOUS DISEASES IP CONSULT TO GERIATRICS Planned Discharge Disposition: Group Home/Residential Care ([facility]) Barriers/Today we still Wait: Administering IV medications Length of Stay (Days): 14 GMLOS: 3.9 distillery manager to follow for discharge planning. Interventional Radiology Brief Postprocedure Note Procedure: IR cvc tunneled central line placement Preprocedure Diagnosis: Polymicrobial infection Postprocedure Diagnosis: no change Staff: Staff Role Anjum Fam MD Radiologist Oscar Moore, network director Nurse Sagar Jovel RN Radiology Nurse Dolly Mccabe, RT (R) [employer] Reader Iliana Salmon PA-C Physician Esl Professor Description of procedure: left chest tunneled central [...] of cefepime. Updated ID. Planned Discharge Disposition: Group Home/Residential Care [facility] Barriers/Today we still Wait: Administering IV medications, Diesel Dragline Operator recommendations (comment), Post-discharge arrangement completion (comment) Length of Stay (Days): 13 GMLOS: No GMLOS Documented distillery manager to follow for discharge planning. Faxed OPAT to [facility]. OPAT not received. Emailed OPAT to [email or web address] as requested. Care Management Progress Note Short Medical why still here: chronic trach/ vent/ PEG/ hemodialysis. New tunneled line placed. Plan for hemodialysis today. ID, nephrology, and pulmonology following. Planned Discharge Disposition: Group Home/Residential Care ([facility]) Barriers/Today we still Wait: Administering IV medications, Diesel Dragline Operator recommendations (comment) (awaiting ID plan for antibiotics, awaiting nephrology clearance for discharge) Length of Stay (Days): 12 GMLOS: No GMLOS Documented distillery manager to follow for discharge planning. Sent updated notes to return back to [facility] via [facility]port per TCC request. Await review and response regarding ability to accept. TCC notified. Care Management Progress Note Short Medical why still here: chronic trach/ vent/ PEG/ hemodialysis. Awaiting new tunneled line for dialysis. On Dificid and IV antibiotics per ID. Nephrology following. Planned Discharge Disposition: Group Home/Residential Care ([facility]) Barriers/Today we still Wait: Administering IV medications, Procedure (comment) (awaiting tunneled line placement) Length of Stay (Days): 11 GMLOS: No GMLOS Documented distillery manager to follow for discharge planning. Care Management Progress Note Short Medical why still here: chronic trach/ vent/ PEG/ hemodialysis. Awaiting new tunneled line for dialysis. On Dificid and IV antibiotics per ID. Nephrology following. Planned Discharge Disposition: Group Home/Residential Care ([facility]) bedhold, no precert needed. Barriers/Today we still Wait: Administering IV medications, Clinical stability, Symptomatic control Length of Stay (Days): 10 GMLOS: No GMLOS Documented distillery manager to follow for discharge planning. Care Management Progress Note Short Medical why still here: C.diff pos, chronic trach/peg, pending HD cath change r/t infection. DCP- return to [facility]. Planned Discharge Disposition: Group Home/Residential Care Barriers/Today we still Wait: Symptomatic control, Procedure (comment), Clinical stability Length of Stay (Days): 7 GMLOS: No GMLOS Documented Care Management Progress Note Short Medical why still here: ongoing C Diff diarrhea. Hemodialysis MWF. Chronic trach /vent/ PEG. Receiving tube feeds. On IV antibiotics. To have dialysis cath changed out. Planned Discharge Disposition: Group Home/Residential Care ([facility]) bedhold, no precert needed to return Barriers/Today we still Wait: Administering IV medications, Clinical stability, Symptomatic control Length of Stay (Days): 6 GMLOS: No GMLOS Documented distillery manager to follow for discharge planning. This RN [...] removed. Line removed on exhalation. A 14 salvadorean 23 cm tunneled hemodialysis catheter was removed [...] tube feeds. Hemoglobin 7.2 Planned Discharge Disposition: Group Home/Residential Care ([facility]) bedhold, no precert needed Barriers/Today we still Wait: Clinical stability, Symptomatic control Length of Stay (Days): 5 GMLOS: No GMLOS Documented distillery manager to follow for discharge planning. Care Management Progress Note Short Medical why still here: anemia. PRBC ordered. Hemoglobin was 7.6 most recently. Continues with C Diff diarrhea. Chronic trach/ vent/ PEG/ tube feeds. Planned Discharge Disposition: Group Home/Residential Care patient is a bedhold at [facility] Barriers/Today we still Wait: Administering IV medications, Clinical stability, Symptomatic control Length of Stay (Days): 4 GMLOS: No GMLOS Documented distillery manager to follow for discharge planning. Return referral placed to [facility] via [facility] per [facility] request. Await review and response regarding ability to accept. TCC notified. Care Management Progress Note Short Medical why still here: anemia. Hemoglobin improved. Receiving hemodialysis. Planned Discharge Disposition: Group Home/Residential Care patient is from [facility], tasked APARTMENT HOTEL MANAGER to send a referral for her to return. Awaiting response. Barriers/Today we still Wait: Administering IV medications, Clinical stability, Symptomatic control, Diesel Dragline Operator recommendations (comment) Length of Stay (Days): 3 GMLOS: No GMLOS Documented distillery manager to follow for discharge planning. 12:14 PM UPDATE: patient is a medicaid bedhold at [facility] and may return whenever she is medically ready. documented in this encounter [facility] 06-21-2025 Note [facility] 06-21-2025 Hospital course Narrative Discharge Summary [...] a 75-year-old female who is from extended-care [facility] [place], admitted to [facility] on June 01, 2025 with [...] at discharge. She will be discharged to [facility] on 06/21, look for discharge medications [...] Your Medications These medications were sent to [facility] [address] [place] [id number] Hours: Wednesday to Wednesday 10 am to [...] Complexity: follow up within 7-14 calendar days ([id number]) [] Severe Complexity: follow up within 7 calendar days (99738) FOLLOW UP TESTING, PENDING RESULTS OR REFERRALS AT TRANSITIONAL CARE VISIT: [] Yes [] No PENDING STUDIES: DISPOSITION: FACILITY/HOME CARE AGENCY NAME: Follow up with [facility] Wound Care & Hyperbaric Oxygen Therapy [address] [address] on INSTRUCTIONS TO MA/SW: Please [...] 06/21/2025, 11:09 AM documented in this encounter [facility] 06-14-2025 Hospital Discharg e kevin Jovel RN - 06/14/2025 2:56 PM EDT [...] a call between 8am and 5pm. - [facility] Radiology - [phone] [place] [address] Radiology - [phone] - For questions after hours, please call [phone] and ask for the on-call Angiography Radiologist. [...] assistance Toileting Total assistance Feeding Total assistance Yard Labor Supervisor Total assistance Med Delivery no Wound Care [...] applicable) Name: Address: Dialysis Schedule: Phone: Fax: Superintendent Police/Asphalt Dauber signature: {E-signature:[id number]} PHYSICIAN SECTION Name: Rosa Myers Prognosis: fair [...] to a nursing facility directly from an [facility] or a unit of a hospital that is not operated by or licensed by [facility] under section 5119.14 or 5160-3-15.1 5 The individual requires the level of services provided by a nursing facility for the condition for which he or she was treated in the hospital and, Physician Certification: I certify the above information and transfer of Rosa Myers is necessary for the continuing treatment of the diagnosis listed and that she requires longterm facility for less than 30 days. Update Admission H&P: No change in H&P PHYSICIAN SIGNATURE: documented in this encounter [facility] 06-14-2025 Note Pt tolerated procedu re well. Tunneled central line placed. Transfer pt to ICU. [facility] 06-14-2025 Note IR Procedures: Rosa is here from ICU for a tunneled central line placement. History, allergies, medications and lab results reviewed. Informed consent has been signed. Pt is on a monitor. Patient ready for the procedure. [facility] 06-14-2025 Consult note Associated Order (s): IP CONSULT TO GERIATRICS [facility] Geriatric Medicine Inpatient Consult Service Admission Date: 06/01/2025 Admission Status: INPATIENT Chief Complaint: Chief Complaint Patient presents with Other Sent from [facility] for low HGB, arrived via [...] term use while hospitalized Debility --lives at [facility] --candelaria lift at baseline I spent [...] polyneuropathy, CHF presented to the hospital from [facility] with complaints of anemia, Hgb [...] 3 times on 06/12 Recently discharged from [facility] 04/18/25. Discharge med list reviewed. Discharged on Prozac 10mg dialy. Nursing Delirium Screen (Nu-Desc): Nursing Delirium Symptom Checklist Total Score: 0 Conversation with patient: Patient calm, just returned from IR for tunneled cath. She mouths words, not speaking. States she is in [place], month May and year 2024. She shrugs her shoulders when asked if she is sleeping or if she has been seeing anything unusual. Conversation with caregiver: Nurse at [facility] [place]. May have anxiety with frequency of suction. [...] 543 ms QTC Interval 552 ms P Mills 0 degrees QRS Mills -11 degrees T [place] 188 degrees [place] Interval 65 ms POCT glucose meter Collection Time: 06/14/25 4:47 PM Result Value Ref Range Glucose 100 70 - 100 mg/dL No results found for: "TSH" No components found for: "B12" No results found for: "VITD25" Reviewed: active problem list, medication list, allergies, social history, notes from last encounter, notes from last several encounters, lab results, imaging Follow-up: will follow with you Diana Kasey Zabala, PROPERTY MANAGEMENT COORDINATOR - [employer] SERVICE TECHNICIAN 06/14/25 5:12 PM [1] No Known Allergies [...] mg, 2.5 mg, Nebulization, q6h PRN, Neelima Hanks, PROPERTY MANAGEMENT COORDINATOR - [employer] SERVICE TECHNICIAN atorvastatin (Lipitor) tablet 40 mg, 40 mg, [...] Units, IntraCATHeter, PRN, Mi Singh APRN - [employer] SERVICE TECHNICIAN, 1,400 Units at 06/11/25 1404 heparin injection 1,200-2,000 Units, 1,200-2,000 Units, IntraCATHeter, PRN, Mi Singh APRN - [employer] SERVICE TECHNICIAN, 1,400 Units at 06/11/25 1402 heparin injection 1,200-2,000 Units, 1,200-2,000 Units, IntraCATHeter, PRN, Yamil Newby MD heparin injection 1,200-2,000 Units, 1,200-2,000 Units, IntraCATHeter, PRN, Yamil Newby MD heparin injection 5,000 Units, 5,000 Units, SubCUTAneous, 2 times per day, Sharyn Amaya MD, 5,000 Units at 06/14/25915 insulin glargine (Lantus) injection 25 Units, 25 Units, SubCUTAneous, BID, Sharyn Amaya MD, 25 Units at 06/14/25917 Insulin Lispro (Humalog) injection 0-6 Units, 0-6 [...] from the original note were not included. [facility] - Infectious Diseases Attending Consult Note [...] Patient Unable To Answer (03/08/2025) Received from [facility] Overall Financial Resource Strain (CARDIA) Difficulty of Paying Living Expenses: Patient unable to answer Food Insecurity: Patient Unable To Answer (03/08/2025) Received from [facility] Hunger Vital Sign Worried About Running Out of Food in the Last Year: Patient unable to answer Ran Out of Food in the Last Year: Patient unable to answer Transportation Needs: No Transportation Needs (06/01/2025) PRAPARE - Transportation Lack of Transportation (Medical): No Lack of Transportation (Non-Medical): No Physical Activity: Inactive (07/11/2024) Received from [facility] Exercise Vital Sign Days of Exercise per Week: 0 days Minutes of Exercise per Session: 0 min Stress: No Stress Concern Present (04/18/2025) Received from [facility] Occupational [facility] - Occupational Stress Questionnaire Feeling of Stress : Only a little Social Connections: Unknown (03/08/2025) Received from [facility] Social Connection and Isolation Panel [NHANES] Frequency of Communication with Friends and Family: Patient unable to answer Frequency of Social Gatherings with Friends and Family: Patient unable to answer Attends Latter-Day Services: Patient unable to answer Active Member [...] relationships at home?: Yes Physical Abuse: Denies [facility] Domestic Abuse - Type of Abuse: Not on file [facility] Domestic Abuse - Time Frame: Not on file [facility] Domestic Abuse - Signs and Symptoms: [...] -- -- -- 1.651 m (5' 5") 06/07/25 0257 -- -- -- 66 23 100 % -- 06/07/25 0253 -- -- -- 58 17 100 % [...] 1142 Aerobic and Anaerobic Culture with Stain [[id number]] Body Fluid from Pleural Cavity, Left In process Component Value No component results 06/07/2025 1129 06/07/2025 1142 Culture, Aerobic Bacteria with Gram Stain [[id number]] Body Fluid from Pleural Cavity, Left In process Component Value No component results 06/07/2025 1129 06/07/2025 1142 Anaerobic culture [[id number]] Body Fluid from Pleural Cavity, Left In process Component Value No component results 06/07/2025 1025 06/07/2025 1034 Blood culture Site #2 - Suspected Infection [[id number]] Blood, Venous In process Component Value No component results 06/07/2025 1014 06/07/2025 1035 Blood culture Site #1 - Suspected Infection [[id number]] Blood, Venous In process Component Value No component results 06/06/2025 1732 06/06/2025 1953 Respiratory culture and Stain [[id number]] (Abnormal) Sputum Preliminary result Component Value Respiratory culture Culture in progress P Gram Stain Result Many Polymorphonuclear leukocytes per low power field Abnormal P Rare Epithelial cells per low power field Abnormal P Moderate Gram negative bacilli Abnormal P Few Gram positive bacilli Abnormal P Rare Gram positive cocci Abnormal P 06/06/2025 1732 06/07/2025 1158 Pneumonia PCR Panel [[id number]] (Abnormal) Sputum Final result Component Value Staphylococcus [...] 06/06/2025 1429 06/06/2025 1434 Culture, Cath Tip [[id number]] Foreign Body from Cannula In process Component Value No component results 06/02/2025 17306/02/2025 205 Gastrointestinal PCR Panel [[id number]] Stool from Per Rectum Final result Component [...] DIFFICILE by PCR with Reflex to EIA [[id number]] (Abnormal) Stool from Per Rectum Final result Component Value C. difficile toxin PCR Detected Abnormal 06/02/2025 1736 06/02/2025 2208 C. difficile Toxins EIA [[id number]] (Abnormal) Stool from Per Rectum Final result Component Value C difficile Toxins A+B, EIA Positive Abnormal Lines: Rt chest old HD cath site tender. Radiography/Echo/Other: US guided thoracentesis - In process [[id number]] Resulted: 06/07/25 1146 Order Status: Sent Updated: 06/07/251146 This result has not been signed. Information might be incomplete. XR chest 1 view [[id number]] Collected: 06/06/252039 Order Status: Completed Updated: 06/06/252042 [...] PM EDT IR CVC tunneled catheter removal [[id number]] Collected: 06/06/25 154 Order Status: Completed Updated: [...] 3:46 PM EDT XR chest 1 view [[id number]] Collected: 06/01/25 1217 Order Status: Completed Updated: [...] mg 2.5 mg Nebulization q6h PRN Neelima Hanks, PROPERTY MANAGEMENT COORDINATOR - [employer] SERVICE TECHNICIAN atorvastatin (Lipitor) tablet 40 mg 40 mg [...] injection 1 mg 1 mg IntraMUSCular PRN hSaryn Amaya MD glucose oral gel 15 g 15 g Oral PRN Sharyn Amaya MD heparin injection 1,200-2,000 Units 1,200-2,000 Units IntraCATHeter PRN RENITA Clifford CNP 1,600 Units at 06/04/25 192 heparin injection 1,200-2,000 Units 1,200-2,000 Units IntraCATHeter PRN RENITA Clifford CNP 1,600 Units at 06/04/251921 heparin injection 5,000 [...] Nightly Grzegorz Chatterjee MD 40 mg at 06/06/25 205 polyethylene glycol (PEG) 3350 (Miralax) packet [...] in petrolatum (ET Mix) Topical PRN Patrica A. Weinstein, PROPERTY MANAGEMENT COORDINATOR - [employer] SERVICE TECHNICIAN stomahesive in petrolatum (ET Mix) Topical 3 times per day Patrica Weinstein APRN - [employer] SERVICE TECHNICIAN Given at 06/07/25 0558 [4] No Known Allergies [5] No family history on file. Associated Order(s): INPATIENT CONSULT TO WOUND CARE PROVIDERS Images from the original note were not included. [facility] Wound Care CONSULT Note Rosa Myers AGE: 75 y.o. GENDER: female : 1950 Subjective: HISTORY of PRESENT ILLNESS HPI Rosa Myers is a 75 y.o. female who presents for a wound consult. HPI: 75 y.o. female who presents to the emergency department with chief complaint of abnormal blood counts. Patient was sent to us from her snf for lab drawl that shows hemoglobin of [...] with soap and water, pat dry, leave SHREDDER PICKER daily and PRN Left heel Stage 2 pressure injury (POA): -cleanse with NS, apply skin barrier wipe, leave SHREDDER PICKER daily and PRN Right/Left abdominal skin fold - Fungal: -cleanse with soap and water and dry thoroughly, apply Miconazole powder, leave SHREDDER PICKER BID and PRN Sacral Stage 3 pressure injury(POA): Sacral MASD d/t friction/fluids: Right medial thigh - stage 3 Pressure injury (POA): -cleanse with soap and water, apply ET mix TID and PRN, leave PRAVEEN -continue ICU bed -Q2hr/PRN turns -glide sheets for T&R -continence checks Q1-2 Hrs/PRN Nutritional support Wound Care to follow Recommend to follow up at [facility] after hospital discharge. Any questions or concerns please secure chat "[facility] wound/ostomy". Thank you for the [...] EDT Associated Order(s): IP CONSULT TO PULMONOLOGY [facility], Pulmonary Medicine PULMONARY CONSULTATION NOTE. 06/04/25 CONSULTING PHYSICIAN: Dr Chatterjee. REASON FOR REFERRAL: [facility] Assessment- Chronic respiratory failure Ventilator dependence Trach dependence. History of BL pleural effusions, transudate requiring thoracentesis in the past. Volume overload, ESRD with pulmoanry edema Anemia Recommendations- Continue AC/VC at current settings. Attempted PSV for 15 minutes, patient became anxious as dyspneic, and RR went to 28 and was placed back on previous settings. Unclear of settings at [facility] but appears to be vent dependent. Weaning likely limited by volume status, deconditioning, anemia and numerous co-morbidities. OK to send back to [facility] from pulmonary standpoint Thank you [...] she is on vent 19/04. Resides at [facility]. Interestingly in review of records in care everywhere, she was supposed to be on vent at night PSV and HEALDIO day back when she was at [facility] several months ago. Patient denies acute respiratory complaints. Past Medical History Medical History[1] Past Surgical History Surgical History[2] Allergies Allergies[3] Medications Medication Documentation Review Audit Reviewed by Vashti Kilgore RN (Registered Nurse) on 06/01/25 at 1557 Medication Order Taking? Sig Documenting Provider Last Dose Status atorvastatin (Lipitor) 40 MG tablet [id number] Take 40 mg by mouth daily. Via PEG Historical ProviderMD Active busPIRone (Buspar) 5 MG tablet [id number] Take 5 mg by mouth 3 times daily. Historical ProviderMD Active carvedilol (Coreg) 12.5 MG tablet [id number] Take 12.5 mg by mouth 2 times daily. Hold before dialysis Historical ProviderMD Active FLUoxetine (PROzac) 20 MG/5ML solution [id number] Take 20 mg by mouth daily. Via PEG Historical ProviderMD Active furosemide (Lasix) 20 MG tablet [id number] Take 20 mg by mouth daily. Via PEG, given on wed/Wednesday for weight gain Historical ProviderMD Active insulin glargine (Lantus) 100 UNIT/ML injection [id number] Inject 25 Units under the skin 2 times daily. Historical ProviderMD Active Insulin Lispro (Humalog) 100 UNIT/ML solution injection [id number] Inject 2-12 Units under the skin 3 times daily (with meals). Sliding scale: 150-200 = 2 units, 102-250 = 4 units, 251-300 = 6 units, 301-350 = 8 units, 351-400 = 10 units, 401-450 = 12 units Historical ProviderMD Active midodrine (Proamatine) 10 MG tablet [id number] Take 10 mg by mouth 3 times daily. Via PEG, given M-F 1hr prior to dialysis Historical ProviderMD Active pantoprazole (ProtoNix) 20 MG EC tablet [id number] Take 20 mg by mouth every morning (before breakfast). Do not crush, chew, or split. Historical Provider, Active Petrolatum ointment [id number] Apply 1 Application topically 2 times daily as needed (forehead itching). Historical Provider, Active Social History Social History Tobacco Use [...] 100%. CBC: Recent Labs 06/02/25 0510 06/03/25 04106/04/25 0432 WBC 5.1 6.1 6.2 HGB 7.4* 7.2* 7.4* HCT 23.7* 23.3* 23.8* PLT 231 229 247 BMP: Recent Labs 06/02/25 0510 06/03/259 06/04/25 0432 NA 137 131* 130* K 3.1* 3.3* 3.4* CL 98 95* 93* CO2 28 27 26 BUN 20 31* 43* CREATININE 1.57* 2.39* 3.51* GLUCOSE 94 145* 147* CALCIUM 8.8 8.7* 9.0 MG 2.0 2.0 2.1 HEPATIC: Recent Labs 06/02/25 0510 06/03/25 0419 06/04/25 0432 AST 23 27 19 ALT 10 11 [...] (temporalis), Thigh (quadraceps) Fluid Accumulation: Severe Extremities Well Tester Strength: Normal office sweeper strength Nutrition Assessment: 75 year old woman with PMHx: CHD, HLD, HTN, DMII(A1C=6.5% 12/18/24), ESRD (Wednesday through Wednesday HD at [facility]). She was admitted to [facility] with progressive dyspnea, required lasix GTT [...] left leg wound. She was transferred to [facility] on 03/07/2025. During stay at [facility] slowly weaning vent support, +Recurrent bilateral pleural effusions. s/p right thoracentesis on 03/21 with -1300 mL removed. s/p left thoracentesis on 03/22 with -600 mL removed. Repeated right thoracentesis on 04/05 with -1175 mL removed. Completed vancomycin for CDiff on 04/01, and started on nystatin through 04/21 for oral candidiasis. She worked with COUNTER SUPERVISOR during admit to [facility] and used the Passy Gruver Speaking Valve, remains NPO with all nutrition via PEG (Vital High Protein @ 60 mL/hr rate with Banatrol for loose stooling). She was on a MWF HD schedule and tolerated well. Transferred from [facility] to [facility] on 04/18/25 post HD. She currently presents to [facility] ED from [facility] [place] with anemia noted during blood draw., Hgb(6.5). [...] On: Kcal/kg Weight Used for Energy Requirements: [place] Weight for Energy Calculation (kg): 57 kg Total Energy Requirements (kcals/day): 4863-3939 (25-30 kcal/kg IBW) Weight Used for Protein Requirements: [place] Weight in Kg Used for Protein Requirements: [...] lb) Weight Source: Other (Comment) (05/25/25 at [facility]) Admission Body Weight: 103 kg (226 lb) (noted 05/25 at [facility]) Usual Body Weight: 110 kg (242 lb) (per EMR--> 242# 11/27/24; 220# (bed) 03/07/25; 209.7# 04/02/25; 226# 05/25/25) % Weight Change (Calculated): -6.6 [place] Body Weight (lbs) (Calculated): 125 lbs [place] Body Weight (Kg) (Calculated): 57 kg % [place] Body Weight (Calculated): 180.8 % BMI (kg/m2) [...] Enteral Nutrition Raquel Brady RDN, LDN, Contact: *[phone] documented in this encounter [facility] 06-12-2025 Note Pt tolerated procedu re well. Will transfer back to nsg unit. [facility] 06-08-2025 Note [facility] 06-08-2025 Procedure note Associated Ord er(s): HEMODIALYSIS INPATIENT Patient Name: Rosa Myers Patient : 1950 Acct: [id number] Date of Admission: 06/01/2025 Room/Bed: 222222[facility] A Code Status: Full Code Allergies: Allergies[1] [...] 1350 Alert (0) Other (Comment) T-Piece Diminished [place];Pale;Red Warm;Dry Soft;Rounded Active Generalized Non-pitting None None None None lines secure, test passed 06/08/25 1601 -- -- -- Clear -- -- Soft;Rounded Active -- -- None None None None -- 06/08/25 1812 Alert (0) Other (Comment) T-Piece Clear [place];Pale;Red Warm;Dry Soft;Rounded Active Generalized Non-pitting None None None None -- Labs Recent Labs 06/08/25114 WBC 6.5 HGB 7.7* HCT 24.6* PLT 236 Lab Results Component Value Date/Time WBC 6.5 06/08/2025114 HGB 7.7 (L) 06/08/2025114 HCT 24.6 (L) 06/08/2025114 PLT 236 06/08/2025114 NA 129 (L) 06/08/2025 011 K 3.8 06/08/2025114 CL 95 (L) 06/08/2025114 [...] - Before each treatment: Dialysis Machine No.: [id number] RO Machine Number: [id number] Dialyzer Lot No.: [id number] RO Machine Log Sheet Completed: Yes Machine Alarm Self Test: Completed, Passed (1348) (06/08/25 1350) Air Foam Detector: Tested, Proper Function, pH Reading Extracorporeal Circuit Tested for Integrity: Yes Machine Conductivity: 13.8 Manual Conductivity: 13.8 Bicarbonate Concentrate Lot No.: [id number] Acid Concentrate Lot No.: [id number] Manual Ph: 7.2 Bleach Test (Neg): Yes Bath Temperature: 36 C (96.8 F) Tubing Lot Number: [id number] Conductivity Meter Serial #: [id number] All Connections Secure: Yes Arterial Parameters Set: [...] watching tv, lines secure, uf 2460,l 06/08/25 180 -- -- -- -- -- -- -- [...] 4 Vitals: 06/08/25 1745 06/08/25 1800 06/08/25 18006/08/251811 BP: (!) 105/40 (!) 106/37 (!) 106/37 104/54 BP Location: Patient Position: Pulse: 61 65 61 67 Resp: 18 Temp: 37.1 C (98.8 F) TempSrc: SpO2: 100% Weight: Height: 5 Patient Vitals for the past 24 hrs: BP Temp Temp src Pulse Resp SpO2 Weight 06/08/25 1812 104/54 37.1 C (98.8 F) -- 67 18 100 % -- 06/08/25 180 (!) 106/37 -- -- 61 -- -- [...] documented as signed by this procedure note Esl Professor(s): N/A No supervision required documented in this encounter [facility] 06-08-2025 Note [facility] 06-07-2025 Note Patient tolerated th e procedure well. 600ml's of clear gold fluid removed. Fluid left with ICU nurse for labs to be sent. [facility] 06-04-2025 Note Return referral plac ed to [facility] via [facility] per [facility] request. Await review and response regarding ability to accept. TCC notified. [facility] 06-01-2025 Note [facility] 06-01-2025 History and physical note Attending [...] for anemia, she is a resident of [facility] [place] and was sent to the ER as [...] -June 02 or - Location [facility] [place] - Pending the following -clinical improvement and [...] - DO NOT do CPR, intubation] [_] [DNR-COMMUNICATIONS EQUIPMENT OPERATOR - Comfort care only] [_] DNR form [...] Sharyn Amaya MD Division of Hospitalist Medicine [facility] [1] No past medical history on [...] No Known Allergies documented in this encounter [facility] 06-01-2025 Emergency department Note EMERGENCY DEPARTMENT ENCOUNTER Pt Name: Rosa Myers Birthdate 1950 Date of evaluation: 06/01/2025 ED Provider: Omid Orona MD CHIEF COMPLAINT Chief Complaint Patient presents with Other Sent from [facility] for low HGB, arrived via [...] Patient was sent to us from her snf for lab drawl that shows hemoglobin of [...] Family History[3] SOCIAL HISTORY Social History[4] SCREENINGS [place] Coma Scale Best Eye Response: Spontaneous Best Verbal Response: Oriented Best Motor Response: Follows commands [place] Coma Scale Score: 15 PHYSICAL EXAM ED [...] Physician EKG interpretation can be found in [facility] RADIOLOGY (Per Emergency Physician): Chest x-ray: Vascular [...] AND HEMATOCRIT, BLOOD PREPARE RBC PRODUCT CODE [id number] Unit Number [id number] Unit ABO A Unit RH POS Crossmatch interpretation COMP Dispense Status Crossmatch Blood Expiration Date [id number] Product Blood Type 6200 Unit Volume 300 PRODUCT CODE [id number] Unit Number [id number] Unit ABO A Unit RH POS Crossmatch interpretation COMP Dispense Status Transfused Blood Expiration Date [id number] Product Blood Type 6200 Unit Volume 300 [...] Patient was sent to us from her snf. I contacted her home improvement contractor from the snf, Dr. Amaya who also admits here to the hospital. He agrees with plans for admission observation, blood transfusion. I also will contact her nephrology group, the [facility] to arrange for dialysis. Patient is admitted in fair condition The patient presented with chief complaint of low blood count. The differential diagnosis associated with this patient's presentation includes anemia, electro abnormality, worsening renal failure. Our workup consisted of ordering/reviewing: Laboratory studies, EKG, chest x-ray. I discussed their care with Admitting team hospitalist and Diesel Dragline Operator nephrology. Consideration for escalation of care with: [...] MD 06/01/25 1346 documented in this encounter [facility] 04-05-2025 Note ORIGINAL PROCEDURE: ULTRASOUND GUIDED [...] Sign Date: 04/05/2025 4:49:07 PM Ordering Provider: BISHNU SALAMANCA [facility] 03-27-2025 Note ORIGINAL PROCEDURE: ULTRASOUND GUIDED left THORACENTESIS HEBREW TEACHER: Cha Yusuf PA-C CLINICAL STATEMENT: Left pleural [...] 03/27/2025 5:38:19 PM Ordering Provider: JANAE ZARCO [facility] 03-27-2025 Note . MICRO - Microbiology [...] Locations *1: This test was performed at: [address], [address] [place] [address] 03-22-2025 Note ORIGINAL PROCEDURE: ULTRASOUND GUIDED right THORACENTESIS HEBREW TEACHER: Cha Yusuf PA-C CLINICAL STATEMENT: Bilateral pleural effusions, right greater than left ANESTHESIA: Local FLUID REMOVED: 1300 cc FLUID COLOR: Yellow serous DISPOSITION OF FLUID: Specimen sent with patient to [facility] CATHETER/NEEDLE: 5 Fr centesis catheter The procedure, [...] was sent with the patient back to [facility] for lab if needed. No lab orders [...] Sign Date: 03/22/2025 8:57:19 AM Ordering Provider: JANAEJAMES DAVIES [facility] 03-11-2025 Note . MICRO - Microbiology PROCEDURE: [...] Locations *1: This test was performed at: [facility], [address] [place] [address], [address] , [facility] 03-07-2025 Note [facility] 02-21-2025 Note [facility] 02-19-2025 Note [facility] 02-05-2025 History and physi jim note Note Date/Time February 05, 2025 2:41p m [facility] Medical Records Department [address] [place] [address] H&P Exam - Hospitalist 02/05/25 1311 MR#: [id number] Acct: [id number] Name: ORSA MYERS Rep #:[id number] : 1950 74 From: Zachery Olvera PCP: [...] to be discussed in assessment and plan. [facility] Medical History Essential hypertension Morbid obesity [...] (Auto) 89.7 H, Lymph %(Auto) 2.5 L, Furnas % (Auto) 6.9, Eos % (Auto) 0.0, [...] Sens 218 H*, [place] [address] H 02/05/25 11:20: Urine Color Yellow, Urine Clarity Clear, Urine pH 5.0, Ur Specific Kempton 1.025, Urine Protein 30 H, Urine Glucose [...] Blunting of both costophrenic angles. Reading Location: [id number] Assessment & Plan Assessment/Plan (1) Acute on [...] of nondescriptive chest pain. Lesion discussed with cancer registry coordinator Dr. Cardona. Recommended enoxaparin 1 dose. Troponin [...] monitoring, kidneyand electrolytes monitoring. Repeat 2D echo. Pet Counselor consulted from ED physician ELIDA on CKD stage IV: Patient baseline creatinine runs around 2.0 as in January 2025. Admitting BUN/creatinine 58/2.32 therefore ELIDA on CKD stage IV. Regional Property Manager consulted. Patient has hyperkalemia, 5.5, high anion [...] shock if needed Total time spent in cxrq-si-iekz encounter in discussion of advanced directive 17 minutes. Laboratory Results 02/05/25 09:59: WBC 20.5 H, RBC 3.71 L, Hgb 8.0 L, Hct 27.9 L, MCV 75.2 L, MCH 21.6 L, MCHC 28.7 L, RDW Std Deviation 45.6 H, RDW Coeff of Bulmaro 17.0 H, Plt Count 226, MPV 10.6, Immature Gran % (Auto) 0.600, Neut % (Auto) 89.7 H, Lymph %(Auto) 2.5 L, Furnas % (Auto) 6.9, Eos % (Auto) 0.0, [...] Sens 218 H*, [place] [address] H 02/05/25 11:20: Urine Color Yellow, Urine Clarity Clear, Urine pH 5.0, Ur Specific Kempton 1.025, Urine Protein 30 H, Urine Glucose [...] Blunting of both costophrenic angles. Reading Location: [id number] Charges/Coding Visit Charges Inpatient E&M: 41292 Init Hosp L3 Procedures Hospitalists Procedures: 73007 Advncd Care Plan 30 Min 02/05/25 1441 <Electronically signed by Zachery Gomez MD> Cosigner Signature (if applicable): CC: Dr. Amado James MD; Dr. Zachery Gomez MD~ Signed [facility] Work Phone: 1(925) 623-621705-12-2025 History and physical note [facility] Medical Records Department [address] [place] [address] H&P Exam - Hospitalist 02/05/25 1311 MR#: [id number] Acct: [id number] Name: ROSA MYERS Rep #:[id number] : 1950 74 From: Zachery Olvera PCP: [...] to be discussed in assessment and plan. [facility] Medical History Essential hypertension Morbid obesity [...] (Auto) 89.7 H, Lymph %(Auto) 2.5 L, Furnas % (Auto) 6.9, Eos % (Auto) 0.0, [...] Sens 218 H*, [place] [address] H 02/05/25 11:20: Urine Color Yellow, Urine Clarity Clear, Urine pH 5.0, Ur Specific Kempton 1.025, Urine Protein 30 H, Urine Glucose [...] Blunting of both costophrenic angles. Reading Location: [id number] Assessment & Plan Assessment/Plan (1) Acute on [...] of nondescriptive chest pain. Lesion discussed with cancer registry coordinator Dr. Cardona. Recommended enoxaparin 1 dose. Troponin [...] monitoring, kidneyand electrolytes monitoring. Repeat 2D echo. Pet Counselor consulted from ED physician ELIDA on CKD stage IV: Patient baseline creatinine runs around 2.0 as in January 2025. Admitting BUN/creatinine 58/2.32 therefore ELIDA on CKD stage IV. Regional Property Manager consulted. Patient has hyperkalemia, 5.5,high anion gap [...] shock if needed Total time spent in xkse-os-ared encounter in discussion of advanced directive 17 minutes. Laboratory Results 02/05/25 09:59: WBC 20.5 H, RBC 3.71 L, Hgb 8.0 L, Hct 27.9 L, MCV 75.2 L, MCH 21.6 L, MCHC 28.7 L,RDW Std Deviation 45.6 H, RDW Coeff of Bulmaro 17.0 H, Plt Count 226, MPV 10.6, Immature Gran % (Auto) 0.600, Neut % (Auto) 89.7 H, Lymph %(Auto) 2.5 L, Furnas % (Auto) 6.9, Eos % (Auto) 0.0, [...] Sens 218 H*, [place] [address] H 02/05/25 11:20: Urine Color Yellow, Urine Clarity Clear, Urine pH 5.0, Ur Specific Kempton 1.025, Urine Protein 30 H, Urine Glucose [...] Blunting of both costophrenic angles. Reading Location: [id number] Charges/Coding Visit Charges Inpatient E&M: 98024 Init Hosp L3 Procedures Hospitalists Procedures: 99525 Advncd Care Plan 30 Min 02/05/25 1441 Cosigner Signature (if applicable): CC: Dr. Amado James MD; Dr. Zachery Gomez MD~ Signed [facility]05-12-2025 Radiology Diagnostic study note [facility] Imaging Services [address] [place], [place] [address] Chest 1 View (Portable) MR#: [id number] Acct: [id number] Name: ROSA MYERS Rep #: [id number] : 1950 F 74 From: Kelton Daly MD PCP: Dr. Amado James MD Status: RE G ER Study:Chest 1 View (Portable) Date of Exam: 02/05/25 Exam# [id number] Ordering Dr: Eduardo Corona DO PROCEDURE: CHEST [...] Blunting of both costophrenic angles. Reading Location: [id number] CC: Dr. Eduardo Corona, DO; Dr. Amado James MD ~ Electronic Science Teacher: Signed [facility]03-25-2025 Telephone encounter Note* Telephone Encounter - [...] CBC in 2 weeks Amado James MD [facility]03-25-2025 Miscellaneous Notes* Telephone Encounter - Amado James [...] weeks Amado James MD documented in this encounterKet[facility]03-03-2025 Instructions* Patient Instructions* Rufina Soares APRN.RENEE - 11/27/2024 2:16 PM EST Get fasting labs and urine testing completed Continue to take all medication as prescribed Monitor sugars at home fasting and meals Work on eating a low carb diet Stay well hydrated Follow up in 3 months or sooner pending test results, documented in this encounterKet[facility]03-03-2025 History of Present illness Narrative* Rufina Soares APRN.RENEE - 11/27/2024 2:00 PM EST This is [...] last OV increased Levemir 30 units at HS and Humalog 15 units TID with meals. [...] CATARACT EXTRACTION HX Right 10/26/2017 EGD W/O [facility] SPEC VARICIES INJ N/A 02/24/2022 LIG/TRNSXJ FLP [...] 1 capsule by mouth once daily. Insulin [place], Disposable, (RELION PEN NEEDLES) 32 x 5/32 [...] APRN.CNP This note was partially generated using Chimerix voice recognition system. Note was reviewed for accuracy. There may be minor misspellings or grammar miscues with Chimerix voice recognition. documented in this encounterKettering [facility]03-03-2025 NoteHNO ID: [id number] Author: RUFINA SOARES APRN.CNP Service: ? Author [...] 1 capsule by mouth once daily. Insulin [place], Disposable, (RELION PEN NEEDLES) 32 x 5/32 [...] hematochezia/melena. No heartburn or (more content not included)...[facility]02-18-2025 Telephone encounter Note* Telephone Encounter - Maciel Busby APRN.CNP - 11/14/2024 10:25 AM EST Noted. Okay to continue with the plan. Maciel Busby APRN.CNP [facility]02-18-2025 Miscellaneous Notes* Telephone Encounter - Maciel Busby APRN.CNP - 11/14/2024 10:25 AM EST Noted. Okay to continue with the plan. Maciel Busby APRN.CNP * Telephone Encounter - Judie Paiz RN - 11/14/2024 10:09 AM EST Joseph RN with [facility] calls to let provider know [...] questions. Judie Paiz RN documented in this encounterKettering [facility]02-18-2025 Telephone encounter Note * Telephone Encounter - Judie Paiz RN - 11/14/2024 10:09 AM EST Joseph RN with [facility] calls to let provider know [...] needed unless provider has questions. Judie Paiz, RN [facility]02-12-2025 Telephone encounter Note* Telephone Encounter - Ave [...] Ave Toney November 08, 2024 8:45 AM [facility]02-12-2025 Miscellaneous Notes* Telephone Encounter - Ave Toney [...] 08, 2024 8:45 AM documented in this encounterKettering [facility]01-30-2025 Evaluation note* Diagnosis Onset Date Resolution Status [...] hypertension chronic January 29, 2025 3: 27pm [facility] Work Phone: 1(430) 832-198201-30-2025 Evaluation note* Diagnosis Onset Date Resolution Status [...] CHF (congestive heart failure) chronic November 23, 025 9:00am Essential hypertension chronic Fe bruary [...] diastolic (congestive) chronic February 05, 2025 1:07pm [facility] Work Phone: 1(123) 799-835001-30-2025 Evaluation note* Diagnosis Onset Date Resolution Status [...] kidney injury) resolved February 05, 2025 1:07pm [facility] Work Phone: [phone] Telephone encounter Note* Telephone Encounter - Rajni Jiménez RN - 10/20/2024 12:12 PM EST joseph with [facility] is calling to let pcp that they are re-certifying patient for nursing for help with wound care once weekly for the next 4 weeks. [facility]01-24-2025 Miscellaneous Notes* Telephone Encounter - Rajni Jiménez RN - 10/20/2024 12:12 PM EST joseph with [facility] is calling to let pcp that they are re-certifying patient for nursing for help with wound care once weekly for the next 4 weeks. documented in this encounterKettering [facility]01-10-2025 NoteHNO ID: [id number] Author: JESSICA MCKINNON MA Service: ? Author Type: Title One Reading Teacher Type: Progress Notes Filed: 10/06/2024 10:07 Note Text: POPULATION HEALTH NAVIGATION OUTREACH Action/FYI Patient is on [facility] CURRENT ROSTER Workbench list for [...] patient. Scheduled 11/[address] Elizabeth in [place] for eye exam. KED (uACR ) pended [...] scheduled/pended orders: Diabetic [facility] RU[facility]AR[facility] - Carolyne mo follow up 12/08/2024 in [facility] with JENNIFER ELIZABETH - Diabetic eye exam Updated appointment note HCC related Navigation Signature: Jessica Mckinnon MA October 06, 2024 9:00 [facility]01-10-2025 History of Present illness Narrative* Jessica Mckinnon MA - 10/06/2024 9:00 AM EST POPULATION HEALTH NAVIGATION OUTREACH Action/FYI Patient is on [facility] CURRENT [facility]OST[facility] Workbench list for [...] patient. Scheduled 11/[address] Elizabeth in [place] for eye exam. KED (uACR ) pended [...] scheduled/pended orders: Diabetic Eye Ex[facility]AN[facility]OF, RUFINA - 2 mo follow up 12/08/2024 in [facility] with JENNIFER ELIZABETH - Diabetic eye exam Updated appointment note HCC related Navigation Signature: Jessica Mckinnon MA October 06, 2024 9:00 AM documented in this encounterKettering [facility]01-10-2025 NotePatient Outreach (NETNAV) ROSA MYERS ([id number]) 1950 F Date Time Provider Department 10/06/24 JESSICA MCKINNON NETSAGAR During your visit today, we recorded the following information about you: Jessica Mckinnon MA 10/06/2024 10:07 AM Addendum POPULATION HEALTH NAVIGATION OUTREACH Action/I Patient is on [facility] CURRENT [facility] Workbench list for below and needs appointment to address: DTaP,Tdap,Td Vaccine(1 - Tdap) Dilated Retinal Exam Advance Directive Discussion Hemoglobin A1C (%) Date Value 08/31/2024 5.5 09/22/2021 7.3 Patient due for: Controlling Blood Pressure Diabetic Eye Exam HBA1C - already order KED- CMP already ordered - needs [facility] Active: No, offered activation Yes - Declined Spoke to patient. Scheduled 11/[address] Elizabeth in [place] for eye exam. KED ([facility] ) pended for PCP review - CMP [...] orders: Diabetic Eye Exam 11/27/2024 in [facility] with RUFINA SOARES - 2 mo follow up 12/08/2024 in [facility] with JENNIFER ELIZABETH - Diabetic eye exam Updated appointment note HCC related Navigation Signature: Jessica Mckinnon MA October 06, 2024 9:00 AM Allergies As of Date: 10/06/2024 Noted Allergy Reaction DIANA INHIBITORS 07/17/2005 NEOMYCIN 07/17/2005 Date Reviewed: 09/26/2024 Reviewed by: Yaz Christy MA - Fully Assessed Reason for Visit: Population Health Navigation Outreach [3910] Cmt: Nadeen Figuero[facility] Primary Visit Diagnosis:Type 2 diabetes mellitus with chronic kidney disease, with long-term current use of insulin, unspecified CKD stage (HCC) [E11.22, Z79.4] Order(s):ALBUMIN/CREATININE RATIO, URINE [SQUACR] Order #: [id number] FUTURE Prescriptions as of 10/09/2024 - insulin [...] capsule by mouth once daily. - Insulin [place], Disposable, (RELION PEN NEEDLES) 32 x 5/32 [...] 07/17/2005 DIFFUS CYSTIC MAST (more content not included)...[facility] 09-29-2024 Telephone encounter Note* Telephone Encounter - Amado James MD - 09/29/2024 10:52 AM EST Noted; continue with current dose of insulin Amado James MD [facility]01-03-2025 Miscellaneous Notes* Telephone Encounter - Amado James MD - 09/29/2024 10:52 AM EST Noted; continue with current dose of insulin Amado James MD * Telephone Encounter - Elsie Brock LPN - 09/29/2024 10:06 AM EST Joseph from [facility] calling to confirm pt's insulin dosages. Advised [...] pt follws with wound center and Dr Erwin(organ fixer). Elsie Brock LPN documented in this encounterKettering [facility]01-03-2025 Telephone encounter Note * Telephone Encounter - Elsie Brock LPN - 09/29/2024 10:06 AM EST Joseph from [facility] calling to confirm pt's insulin dosages. Advised [...] pt follws with wound center and Dr Erwin(organ fixer). Elsie Brock LPN [facility]12-31-2024 Instructions* Patient Instructions* Yaz Christy MA - 09/26/2024 9:49 AM EST Increase Insulin - Levemir 30 units once daily and Humalog 15 units 3 x per day with meals. Update office in a couple weeks with readings to adjust if needed. documented in this encounterKettering Health [facility] Center12-31-2024 History of Present illness Narrative* Amado James [...] and did have to go to a Group Home and stay, but is now back home. [...] CATARACT EXTRACTION HX Right 10/26/2017 EGD W/O [facility] SPEC VARICIES INJ N/A 02/24/2022 LIG/TRNSXJ FLP [...] 1 capsule by mouth once daily. Insulin [place], Disposable, (RELION PEN NEEDLES) 32 x 5/32 [...] 08/31/2024 1.12 Monocytes % 08/31/2024 7.1 Abs Furnas 08/31/2024 0.55 Eosinophils % 08/31/2024 2.6 Abs [...] (HCC) - ICD9: 585.4, ICD10: N18.4 - COMPREHENSIVE [...] complication, with long-term current use of insulin ([facility]) - ICD9: 250.00, V58.67, ICD10: E11.9, Z79.4 - INSULIN LISPRO (U-100) 100 UNIT/ML SUBCUTANEOUS PEN Call office with glucose readings in 2 weeks, may need to increase insulin further Follow up in 2 months I agree with the Chief Complaint, ROS, and Past Histories independently gathered by the clinical marketing support manager and the remaining scribed note accurately describes [...] AM. Yaz Christy MA documented in this encounterKettering Health [facility] Center12-31-2024 NoteHNO ID: [id number] Author: AMADO JAMES MD Service: ? Author [...] and did have to go to a Group Home and stay, but is now back home. [...] CATARACT EXTRACTION HX Right 10/26/2017 EGD W/O [facility] SPEC VARICIES INJ N/A 02/24/2022 LIG/TRNSXJ FLP [...] 1 capsule by mouth once daily. Insulin [place], Disposable, (RELION PEN NEEDLES) 32 x 5/32 " ndle Use as directed with insulin pen. 250.00. 4 injections/day. On insulin. Blood-Glucose Meter, Drum-type (ACCU-CHEK COMPACT PLUS CARE) kit Use as directed cyanocobalamin (VITAMIN B-12) 1,000 mcg tab Take 1 tablet by mouth once daily. (Patie (more content not included)...[facility]12-20-2024 Telephone encounter Note* Telephone Encounter - Maciel Busby APRN.CNP - 09/15/2024 11:22 AM EST Noted. Maciel Busby APRN.RENEE [facility]12-20-2024 Miscellaneous Notes* Telephone Encounter - Maciel Busby APRN.CNP - 09/15/2024 11:22 AM EST Noted. Maciel Busby APRN.CNP * Telephone Encounter - Juana Castaneda RN - 09/15/2024 10:40 AM EST Juana calling from [facility] to report plan of care for patient and longterm will continue to visit patient 1 time a week for 2 weeks. Jail will continue work with patient on woundcare. No call back needed. Juana Castaneda RN documented in this encounterKettering Health [facility] Center12-20-2024 Telephone encounter Note * Telephone Encounter - Juana Castaneda RN - 09/15/2024 10:40 AM EST Juana calling from [facility] to report plan of care for patient and longterm will continue to visit patient 1 time a week for 2 weeks. Jail will continue work with patient on woundcare. No call back needed. Juana Castaneda RN [facility]12-18-2024 Telephone encounter Note* Telephone Encounter - Marguerite Rubio LPN - 09/13/2024 10:58 AM EST Patient son notified of results, verbalizes understanding of instructions. Appt is made in 1 week follow up for DM. Marguerite Rubio LPN [facility]12-18-2024 Miscellaneous Notes* Telephone Encounter - Marguerite Rubio LPN - 09/13/2024 10:58 AM EST Patient son notified of results, verbalizes understanding of instructions. Appt is made in 1 week follow up for DM. Marguerite Rubio LPN * Telephone Encounter - Rufina Soares APRN.RENEE - 09/13/2024 10:50 AM EST Can you [...] been taking with her meals? Rufina Soares APRN.BMW SERVICE TECHNICIAN * Telephone Encounter - Juana Castaneda RN - 09/11/2024 9:25 AM EST Patient's son Marcell calls with patient's blood sugars. Date AM Lunch Supper 09/07 [phone] 09/08 [phone] 09/09 [phone] Juana Castaneda RN documented in this encounterKettering [facility]12-18-2024 Telephone encounter Note * Telephone Encounter - Rufina Soares APRN.BMW SERVICE TECHNICIAN - 09/13/2024 10:50 AM EST Can you [...] with PCP in 1 week. Rufina Soares APRN.BMW SERVICE TECHNICIAN Example insulin titration schedule: Start taking 10 [...] target fasting blood sugar level consistently (80-130) [facility]12-17-2024 Telephone encounter Note* Telephone Encounter - [...] 3 times a day. Kathi Crane LPN [facility]12-16-2024 Telephone encounter Note* Telephone Encounter - Marguerite Rubio LPN - 09/11/2024 3:34 PM EST TC to pt. LM to call office, ask for triage nurse to get results. Marguerite Rubio LPN [facility]12-16-2024 Telephone encounter Note* Telephone Encounter - Rufina Soares APRN.CNP - 09/11/2024 3:29 PM EST Can you please call the patient's son and ask what dosing insulin are they up to at this time? Has he been titrating up the Lantus? How much Humalog has she been taking with her meals? Rufina Soares APRN.BMW SERVICE TECHNICIAN [facility]12-16-2024 Telephone encounter Note* Telephone Encounter - Juana Castaneda RN - 09/11/2024 9:25 AM EST Patient's son Marcell calls with patient's blood sugars. Date AM Lunch Supper 09/07 [phone] 09/08 [phone] 09/09 [phone] Juana Castaneda RN [facility]12-13-2024 Telephone encounter Note* Telephone Encounter - Mariza Graham MA - 09/08/2024 1:25 PM EST Isabel notified and voiced understanding. Mariza Graham MA [facility]12-13-2024 Miscellaneous Notes* Telephone Encounter - Mariza Graham MA - 09/08/2024 1:25 PM EST Isabel notified and voiced understanding. Mariza Graham MA * Telephone Encounter - Amado James MD - 09/08/2024 12:00 PM EST OK for one more visit as requested Amado James MD * Telephone Encounter - Rajni Jiménez RN - 09/08/2024 11:05 AM EST Isabel from [facility] is calling requesting an order [...] nurse back with information documented in this encounterKettering [facility]12-13-2024 Telephone encounter Note * Telephone Encounter - Amado James MD - 09/08/2024 12:00 PM EST OK for one more visit as requested Amado James MD [facility]12-13-2024 Telephone encounter Note* Telephone Encounter - Rajni Jiménez RN - 09/08/2024 11:05 AM EST Isabel from [facility] is calling requesting an order for 1 more additional visit to see patient next week as patient was to receive paperwork in the mail that she was to go over with patient and she hasnot received it yet. Nurse is hoping that it will arrive by this time next week. please review and advise and contact nurse back with information [facility]12-09-2024 Telephone encounter Note* Telephone Encounter - Mariza Graham MA - 09/04/2024 3:46 PM EST Isabel notified. Mariza Graham MA [facility]12-09-2024 Miscellaneous Notes* Telephone Encounter - Mariza Graham MA - 09/04/2024 3:46 PM EST Isabel notified. Mariza Graham MA * Telephone Encounter - Amado James MD - 09/04/2024 3:00 PM EST Ok for verbal ok to follow up with patient on 09/08/24 as requested Amado James MD * Telephone Encounter - Angelica Nassar LPN - 09/04/2024 9:57 AM EST Isabel licensed social worker from [facility] is asking for a verbal ok to follow up with patient on 09/08/24. documented in this encounterK[facility]12-09-2024 Telephone encounter Note * Telephone Encounter - Amado James MD - 09/04/2024 3:00 PM EST Ok for verbal ok to follow up with patient on 09/08/24 as requested Amado James MD [facility]12-09-2024 Telephone encounter Note* Telephone Encounter - Mariza Graham MA - 09/04/2024 10:34 AM EST Pt son Marcell notified. Mariza Graham MA [facility]12-09-2024 Miscellaneous Notes* Telephone Encounter - Mariza Graham [...] with Pt blood sugars from the week. - morning -187 noon- 230 evening - 237 Wed- morning -207 noon - 262 evening - 275 Thur - morning -256 noon - 303 evening -278 Please let Pt and son know if you want changes. Marguerite Rubio LPN documented in this encounterKet[facility]12-09-2024 Telephone encounter Note * Telephone Encounter - Angelica Nassar LPN - 09/04/2024 9:57 AM EST Isabel licensed social worker from [facility] is asking for a verbal ok to follow up with patient on 09/08/24. [facility]12-06-2024 Telephone encounter Note* Telephone Encounter - Marguerite Rubio LPN - 09/01/2024 2:58 PM EST TC to Pt. son Unable to LM due to the mailbox is full. Will try again later. Marguerite Rubio LPN [facility]12-06-2024 Telephone encounter Note* Telephone Encounter - [...] target fasting blood sugar level consistently (80-130) [facility]12-06-2024 Telephone encounter Note* Telephone Encounter - Marguerite Ruibo LPN - 09/01/2024 2:31 PM EST Pt son called with Pt blood sugars from the week. Tu - morning -187 noon- 230 evening - 237 Wed- morning -207 noon - 262 evening - 275 Thur - morning -256 noon - 303 evening -278 Please let Pt and son know if you want changes. Marguerite Rubio LPN [facility]12-05-2024 Telephone encounter Note* Telephone Encounter - Rufina Soares APRN.BMW SERVICE TECHNICIAN - 08/31/2024 7:28 AM EST Noted, thank you Rufina Soares APRN.BMW SERVICE TECHNICIAN [facility]12-05-2024 Miscellaneous Notes* Telephone Encounter - Rufina Soraes APRN.RENEE - 08/31/2024 7:28 AM EST Noted, thank you Rufina Soares APRN.BMW SERVICE TECHNICIAN * Telephone Encounter - Aimee French RN - 08/30/2024 1:36 PM EST RICKY Gardner @ [facility] calling with plan of care. OT will see patient 1 x/weekf for one week, 2 x/week for two weeks, and 1x/week for one week for safety and strength training needed for ADLs. If agree, no call back needed. Aimee French RN documented in this encounterKettering Health [facility]12-04-2024 Telephone encounter Note * Telephone Encounter - Aimee French RN - 08/30/2024 1:36 PM EST RICKY Gardner @ [facility] calling with plan of care. OT will see patient 1 x/weekf for one week, 2 x/week for two weeks, and 1x/week for one week for safety and strength training needed for ADLs. If agree, no call back needed. Aimee French RN [facility]12-03-2024 Telephone encounter Note* Telephone Encounter - Amado James MD - 08/29/2024 2:06 PM EST Noted Amado James MD [facility]12-03-2024 Miscellaneous Notes* Telephone Encounter - Amado James MD - 08/29/2024 2:06 PM EST Noted Amado James MD * Telephone Encounter - Juana Castaneda RN - 08/29/2024 10:57 AM EST Rufina PT calling from [facility] to report plan of care [...] back needed unless there are questions Juana Castaenda RN documented in this encounterKettering [facility]12-03-2024 Telephone encounter Note * Telephone Encounter - Juana Castaneda RN - 08/29/2024 10:57 AM EST Rufina PT calling from [facility] to report plan of care [...] unless there are questions Juana Castaneda RN [facility]12-02-2024 History of Present illness Narrative* Rufina Soares APRN.RENEE - 08/28/2024 2:00 PM EST This is a 74 year old female who presents today with: Patient presents with: Follow Up: Hosptial follow up hupoglycemia HISTORY OF PRESENT ILLNESS: Rosa Myers is a 74 year old female. Patient presents with: Follow Up: Hosptial follow up hupoglycemia HOSPITAL/ER FOLLOW UP: Reason for visit: Altered level of consciousness transported by EMS Which facility: [facility] Date of visit: 08/19/2024-08/22/2024 Diagnosis: Hypoglycemia, hypothermia, [...] History of diabetic ulcers/wounds Follows with cardiology, [facility], . Living with , son lives in [facility] on same property. PAST MEDICAL HISTORY: PAST MEDICAL HISTORY Diagnosis Date Allergic rhinitis due to other allergen Essential hypertension, benign Type II or unspecified type diabetes mellitus without mention of complication, uncontrolled PAST SURGICAL HISTORY Procedure Laterality Date CATARACT EXTRACTION HX Right 10/26/2017 EGD W/O [facility] SPEC VARICIES INJ N/A 02/24/2022 LIG/TRNSXJ FLP [...] 1 capsule by mouth once daily. Insulin [place], Disposable, (RELION PEN NEEDLES) 32 x 5/32 [...] APRN.CNP This note was partially generated using Chimerix voice recognition system. Note was reviewed for accuracy. There may be minor misspellings or grammar miscues with Chimerix voice recognition. documented in this encounterKettering [facility] Center12-02-2024 NoteHNO ID: [id number] Author: RUFINA SOARES APRN.CNP Service: ? Author [...] of consciousness transported by EMS Which facility: [facility] Date of visit: 08/19/2024-08/22/2024 Diagnosis: Hypoglycemia, hypothermia, [...] History of diabetic ulcers/wounds Follows with cardiology, [facility], . Living with , son lives in [facility] on same property. PAST MEDICAL HISTORY: PAST MEDICAL HISTORY Diagnosis Date Allergic rhinitis due to other allergen Essential hypertension, benign Type II or unspecified type diabetes mellitus without mention of complication, uncontrolled PAST SURGICAL HISTORY Procedure Laterality Date CATARACT EXTRACTION HX Right 10/26/2017 EGD W/O [facility] SPEC VARICIES INJ N/A 02/24/2022 LIG/TRNSXJ FLP [...] 1 capsule by mouth once daily. Insulin [place], Disposable, (RELION PEN NEEDLES) 32 x 5/32 [...] Smoking status: Former Smoke (more content not included)...[facility]12-02-2024 Instructions* Patient Instructions* Rufina Soares APRN.CNP [...] units and Notify Provider documented in this encounterKet[facility]11-29-2024 Telephone encounter Note * Telephone Encounter - Mariza Graham MA - 08/25/2024 2:40 PM EST Detailed message of below left on Joseph's identified and confidential VM. Advised to call office ifany questions. Mariza Graham MA [facility]11-29-2024 Miscellaneous Notes* Telephone Encounter - Mariza Graham MA - 08/25/2024 2:40 PM EST Detailed message of below left on Joseph'tami identified and confidential VM. Advised to call [...] reassess. will you follow? documented in this encounterKettering [facility] Center11-29-2024 Telephone encounter Note * Telephone Encounter - Amado James MD - 08/25/2024 2:01 PM EST Noted; yes, I will follow Amado James MD [facility]11-29-2024 Telephone encounter Note* Telephone Encounter - Vicki Sawant LPN - 08/25/2024 1:03 PM EST Bailey WONG calling Pt. discharged with DX hypoglycemia. POC is see her 2 x 1 week an 1 day for 2 weeks and reassess. will you follow? [facility] Work Phone: [phone] NoteHNO ID: [id number] Author: MARIZA GRAHAM MA Service: ? Author Type: Title One Reading Teacher Type: Progress Notes Filed: 08/25/2024 10:20 Note Text: TRANSITION CARE MANAGEMENT (TCM) INITIAL CONTACT Title One Reading Teacher Outreach Provider Action/FYI: 7 day TCM Pt [...] of Discharge 08/22/2024 SUMMARY: -Pt discharged from [facility] on 08/22/24. -Admitted for: 1) hypoglycemia with [...] from recent hospitalization: [facility] History of Present illness Narrative* Mariza Graham MA - 08/25/2024 10:09 AM EST TRANSITION CARE MANAGEMENT (TCM) INITIAL CONTACT Title One Reading Teacher Outreach Provider Action/FYI: 7 day TCM Pt [...] of Discharge 08/22/2024 SUMMARY: -Pt discharged from [facility] on 08/22/24. -Admitted for: 1) hypoglycemia with [...] for provider to review documented in this encounterKettering [facility] Center11-29-2024 NotePatient Outreach (CLYDEPWS) ROSA MYERS ([id number]) 1950 F Date Time Provider Department 08/25/24 MARIZA GRAHAM During your visit today, we recorded the following information about you: Mariza Graham MA 08/25/2024 10:20 AM Signed TRANSITION CARE MANAGEMENT (TCM) INITIAL CONTACT Title One Reading Teacher Outreach Provider Action/FYI: 7 day TCM Pt [...] of Discharge 08/22/2024 SUMMARY: -Pt discharged from [facility] on 08/22/24. -Admitted for: 1) hypoglycemia with [...] capsule by mouth once daily. - Insulin [place]atur, Disposable, (RELION PEN NEEDLES) 32 x 5/32 [...] attack (*11/15/2013 Morbid o (more content not included)...[facility]11-26-2024 Telephone encounter Note* Telephone Encounter - Chuyita Fontana LPN - 08/22/2024 2:28 PM EST Left detailed message on identifiable voicemail. [facility]11-26-2024 Miscellaneous Notes* Telephone Encounter - Chuyita Fontana [...] - 08/22/2024 9:36 AM EST Vinay with [facility] is calling to report that pt is currently in [facility] for hypoglycemia. Pt may get discharged today or tomorrow and possibly with 2L of O2. Pt has orders for longterm, PT, OT, and SW. Vinay is asking for VO from provider that provider will follow pt while in . Hyacinth Greer LPN documented in this encounterKettering [facility]11-26-2024 Telephone encounter Note * Telephone Encounter - Maciel Busby APRN.CNP - 08/22/2024 2:25 PM EST Please let Vinay know that Dr. James is out of the office. His team will follow home health care orders as recommended. Okay to proceed. Maciel Busby APRN.BMW SERVICE TECHNICIAN [facility]11-26-2024 Telephone encounter Note* Telephone Encounter - Hyacinth Greer LPN - 08/22/2024 9:36 AM EST Vinay with [facility] is calling to report that pt is currently in [facility] for hypoglycemia. Pt may get discharged today or tomorrow and possibly with 2L of O2. Pt has orders for longterm, PT, OT, and SW. Vinay is asking for VO from provider that provider will follow pt while in . Hyacinth Greer LPN [facility]11-22-2024 Telephone encounter Note* Telephone Encounter - Diana Whittington LPN - 08/18/2024 4:42 PM EST Phoned [email or web address] [facility] order line and left detailed message with notes below from Dr James on voicemail. [facility]11-22-2024 Miscellaneous Notes* Telephone Encounter - Diana Whittington LPN - 08/18/2024 4:42 PM EST Phoned [email or web address] [facility] order line and left detailed message with notes below from Dr James on voicemail. * Telephone Encounter - Amado James MD - 08/18/2024 4:39 PM EST I will follow and sign orders as requested Amado James MD * Telephone Encounter - Diana Whittington LPN - 08/18/2024 3:30 PM EST Will from [employer] calling asking if PCP would follow patient and sign orders for PT/OT? Patient was in [facility]. Please advise documented in this encounterKettering [facility]11-22-2024 Telephone encounter Note * Telephone Encounter - Amado James MD - 08/18/2024 4:39 PM EST I will follow and sign orders as requested Amado James MD [facility]11-22-2024 Telephone encounter Note* Telephone Encounter - Diana Whittington LPN - 08/18/2024 3:30 PM EST Will from [employer] asking if PCP would follow patient and sign orders for PT/OT? Patient was in [facility]. Please advise [facility]10-17-2024 Telephone encounter Note* Telephone Encounter - Amado James MD - 07/13/2024 4:09 PM EDT Ok for Lantus as ordered Amado James MD [facility]10-17-2024 Miscellaneous Notes* Telephone Encounter - Amado James MD - 07/13/2024 4:09 PM EDT Ok for Lantus as ordered Amado James MD * Telephone Encounter - Laura Palomares LPN - 07/13/2024 3:50 PM EDT Dolly pharmacist from [facility] received script for Levemir for pt this is being discontinued . There are no alternatives coming up but she states most likely Lantus. . New script needssent to [facility] for pt. documented in this encounterKettering [facility] Center10-17-2024 Telephone encounter Note * Telephone Encounter - Laura Palomares LPN - 07/13/2024 3:50 PM EDT Dolly pharmacist from [employer] calling states received script for Levemir for pt this is being discontinued . There are no alternatives coming up but she states most likely Lantus. . New script needssent to [facility] for pt. [facility]10-16-[facility]24 Telephone encounter Note* Telephone Encounter - Iain Lees RN - 07/12/2024 10:01 AM EDT Patient reports [facility] tells her her levemir Rx was cancelled. Reports she saw pcp yesterday and he did not mention it to her. Appears in chart, levemir was not cancelled, it is listed as historical med. Patient asking provider to send new Rx to pharmacy. Pended. Last ov: 07-11-24 [facility]10-16-[facility]24 Miscellaneous Notes* Telephone Encounter - Iain Lees RN - 07/12/2024 10:01 AM EDT Patient reports [facility] tells her her levemir Rx was cancelled. Reports she saw pcp yesterday and he did not mention it to her. Appears in chart, levemir was not cancelled, it is listed as historical med. Patient asking provider to send new Rx to pharmacy. Pended. Last ov: 07-11-24 documented in this encounterKettering [facility] Center10-15-2024 Instructions* Patient Instructions* Yaz Christy MA - 07/11/2024 4:30 PM EDT Will not reduce Humalog at present time, if still having low blood sugars update office. Discussed decreasing Humalog to 20 units three x per day. documented in this encounterKettering Health [facility] Center10-15-2024 History of Present illness Narrative* Amado James [...] as PCP - General Dr. Stallings or LOOP TACKER Provider - [facility]/Cardiology. Dr. Erwin - Podiatry/Wound Center. [...] with exertion. Does follow with Cardiology at [facility], has appt tomorrow. On current regimen of Diovan 160 mg once daily and Coreg 12.5 mg bid. Lipid/CAD - Taking Plavix 75 mg once daily, Lipitor 40 mg once daily and ASA 81 mg daily. Follows with [facility]. DM - Checks sugars at home once daily with FBS of 90 this morning. Generally FBS is 130-160. Has been having increased episodes of lows (5) over the past month, seems to correlate with increased use of abx due to her wounds. Is following with Dr. Erwin at [facility] and [facility] for wound on b/l feet. [...] past year. Had Foot exam done through [facility], Wound Center. Denies having Adv Dir/Living Will, [...] CATARACT EXTRACTION HX Right 10/26/2017 EGD W/O [facility] SPEC VARICIES INJ N/A 02/24/2022 LIG/TRNSXJ FLP [...] 1 capsule by mouth once daily. Insulin [place], Disposable, (RELION PEN NEEDLES) 32 x 5/32 [...] 4. Chronic kidney disease, stage 4 (severe) ([facility]) - ICD9: 585.4, ICD10: N18.4 - cont to monitor 5. Heart failure, unspecified HF chronicity, unspecified heart failure type ([facility]) - ICD9: 428.9, ICD10: I50.9 Add Zaroxalyn [...] body mass index of 40.0-44.9 in adult ([facility]) - ICD9: 278.01, V85.41, ICD10: E66.01, Z68.41 Stable - Behavioral intervention 6 week follow up with labs. I agree with the Chief Complaint, ROS, and Past Histories independently gathered by the clinical marketing support manager and the remaining scribed note accurately describes [...] PM. Yaz Christy MA documented in this encounterKettering Health [facility] Center10-15-2024 NoteHNO ID: [id number] Author: AMADO JAMES MD Service: ? Author Type: Physician Type: Progress Notes Filed: 07/11/2024 17:18 Note Text: Rosa yMers is a 74 year old female here [...] as PCP - General Dr. Stallings or LOOP TACKER Provider - [facility]/Cardiology. Dr. Erwin - Podiatry/Wound Center. [...] with exertion. Does follow with Cardiology at [facility], has appt tomorrow. On current regimen of Diovan 160 mg once daily and Coreg 12.5 mg bid. Lipid/CAD - Taking Plavix 75 mg once daily, Lipitor 40 mg once daily and ASA 81 mg daily. Follows with [facility]. DM - Checks sugars at home once daily with FBS of 90 this morning. Generally FBS is 130-160. Has been having increased episodes of lows (5) over the past month, seems to correlate with increased use of abx due to her wounds. Is following with Dr. Erwin at [facility] and [facility] for wound on b/l feet. [...] from Wound Care last (more content not included)...[facility]09-20-2024 Telephone encounter Note* Telephone Encounter - Aston Felder RN - 06/16/2024 11:37 AM EDT Patricia [facility] called in and wanted Pts last OV note faxed over. She states the only diagnosis they have is foot ulcer, and she wanted more diagnoses to put down. Faxed last OV note to fax # [phone]. [facility]09-20-2024 Miscellaneous Notes* Telephone Encounter - Aston Felder RN - 06/16/2024 11:37 AM EDT Patricia [facility] called in and wanted Pts last OV note faxed over. She states the only diagnosis they have is foot ulcer, and she wanted more diagnoses to put down. Faxed last OV note to fax # [phone]. documented in this encounterKettering [facility]09-10-2024 Telephone encounter Note * Telephone Encounter - Maciel Busby APRN.CNP - 06/06/2024 11:40 AM EDT The following approved medication requests have been transmitted electronically. Requested Prescriptions Pending Prescriptions Disp Refills insulin lispro (HUMALOG KWIKPEN INSULIN) 100 unit/mL 30 Each 3 Sig: INJECT 25 UNITS SUBCUTANEOUSLY THREE TIMES DAILY WITH MEALS DIRECTED Maciel Busby APRN.CNP [facility]09-10-2024 Miscellaneous Notes* Telephone Encounter - Maciel Busby [...] 06, 2024 10:33 AM documented in this encounterKettering [facility] Center09-10-2024 Telephone encounter Note * Telephone Encounter - [...] [facility] June 06, 2024 10:33 AM [facility]09-06-2024 Telephone encounter Note* Telephone Encounter - Aga Castro RN - 06/02/2024 2:31 PM EDT Joseph with [facility] calling and requesting most recent office visit for patient be faxed to them at [phone] for continuity of care for Home Health Nursing services. Faxed as requested. Aga Castro RN [facility]09-06-2024 Miscellaneous Notes* Telephone Encounter - Aga Castro RN - 06/02/2024 2:31 PM EDT Joseph with [facility] calling and requesting most recent office visit for patient be faxed to them at [phone] for continuity of care for Home Health Nursing services. Faxed as requested. Aga Castro RN documented in this encounterKettering Health [facility] Center08-10-2024 History of Present illness Narrative* Amado James [...] CATARACT EXTRACTION HX; Right 02/24/2022: EGD W/O [facility] SPEC VARICIES INJ; N/A 1987: LIG/TRNSXJ FLP [...] 1 capsule by mouth once daily. Insulin [place], Disposable, (RELION PEN NEEDLES) 32 x 5/32 [...] Start Augmentin, refer to Podiatry; family requests [facility], as is treatedthere. - [...] Past Histories independently gathered by the clinical marketing support manager and the remaining scribed note accurately describes [...] AM. Mariza Graham MA\\ documented in this encounterKettering Health [facility]al [facility] Center08-10-2024 NoteHNO ID: [id number] Author: AMADO JAMES MD Service: ? Author [...] EGD W/O [facility] SPEC VARICIES INJ; N/A 1988: LIG/TRNSXJ FLP TUBE ABDL/VAG APPR UNI/BI Comment: [...] 1 capsule by mouth once daily. Insulin [place], Disposable, (RELION PEN NEEDLES) 32 x 5/32 [...] Albumin:Creatinine Ratio due o (more content not included)...[facility]08-07-2024 NoteHNO ID: [id number] Author: JESSICA MCKINNON MA Service: ? Author Type: Title One Reading Teacher Type: Progress Notes Filed: 05/03/2024 09:11 Note Text: POPULATION HEALTH NAVIGATION OUTREACH Action/FYI Patient is on [facility] CURRENT ROSTER Workbench list for below [...] Controlling Blood Pressure Upcoming OV converted per Bradley protocol to AWV. Updated notes to address due care gap and HCC gap closure No HCC BP to be addressed at upcoming appointment Reason for Outreach Care Gap/HCC or Scheduling Wellness Visits Care Gaps due: Medicare Annual Wellness Visit Controlling Blood Pressure Patient Contacted: Unable or unnecessary to reach patient: Patient already scheduled Updated appointment notes Navigation Signature: Jessica Mckinonn MA May 03, 2024 9:09 [facility]08-07-2024 History of Present illness Narrative* Jessica Mckinnon MA - 05/03/2024 9:08 AM EDT POPULATION HEALTH NAVIGATION OUTREACH Action/FYI Patient is on [facility] CURRENT ROSTER Workbench list for below [...] Controlling Blood Pressure Upcoming OV converted per Bradley protocol to AWV. Updated notes to address [...] 03, 2024 9:09 AM documented in this encounterKettering Health Behavioral Medical Center08-07-2024 NotePatient Outreach (NETNAV) ROSA MYERS ([id number]) 1950 F Date Time Provider Department 05/03/24 JESSICA MCKINNON During your visit today, we recorded the following information about you: Jessica Mckinnon MA 05/03/2024 9:11 AM Signed POPULATION HEALTH NAVIGATION OUTREACH Action/FYI Patient is on [facility] CURRENT ROSTER Workbench list for below [...] Controlling Blood Pressure Upcoming OV converted per Nadeen protocol to AWV. Updated notes to address [...] Population Health Navigation Outreach [[id number]] Cmt: Nadeen Figueroa - Bailey PCSA Prescriptions as of 05/03/2024 [...] capsule by mouth once daily. - Insulin [place], Disposable, (RELION PEN NEEDLES) 32 x 5/32 [...] kidney disease, stage 4 (severe) (HCC) *04/15/2023 termination clerk current use of insulin (HCC) [Z79.4] 10/15/2023 Heart failure, unspecified (HCC) [I50.9] 04/15/2023 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*04/15/2023 Encounter Status:Closed by JESSICA MCKINNON on 05/03/24[facility]07-[facility] Telephone encounter Note* Telephone Encounter - Diana Whittington LPN - 04/19/2024 9:04 AM EDT Patient returned call and went over results, notes from Dr James with understanding. Reminder of appt date and time in 3 months. [facility]07-24-[facility] Miscellaneous Notes* Telephone Encounter - Diana Whittington [...] months. Amado James MD documented in this encounterKettering Health Behavioral [facility] Center07-23-2024 Telephone encounter Note * Telephone Encounter - Mariza Graham MA - 04/18/2024 1:18 PM EDT Tried to reach pt at her number and pt son at his number but both lines just ring. Will try to call again later. Mariza Graham MA [facility]07-23-2024 Telephone encounter Note* Telephone Encounter - Amado James MD - 04/18/2024 11:36 AM EDT Please notify patient that her lab results are stable; stay on the same medications and follow up as planned in 3 months. Amado James MD [facility]07-15-2024 History of Present illness Narrative* Amado James [...] taking ASA 81 mg daily. Follows with [place] [facility]; had recent echo showing no change [...] 02/24/2022 LIG/TRNSXJ FLP TUBE ABDL/VAG APPR UNI/BI 1988 Tubal ligation LIGJ DIVJ &/EXCJ VARICOSE VEIN [...] 1 capsule by mouth once daily. Insulin [place], Disposable, (RELION PEN NEEDLES) 32 x 5/32 [...] 2. Chronic kidney disease, stage 4 (severe) ([facility]) - ICD9: 585.4, ICD10: N18.4 - eGFR: 27 Stable 3. Heart failure, unspecified HF chronicity, unspecified heart failure type ([facility]) - ICD9: 428.9, ICD10: I50.9 Follow with cardiology 4. Morbid obesity with body mass index of 40.0-44.9 in adult ([facility]) - ICD9: 278.01, V85.41, ICD10: E66.01, Z68.41 5. Type 2 diabetes mellitus with stage 3b chronic kidney disease, without long- term current use of insulin ([facility]) - ICD9: 250.40, 585.3, ICD10: E11.22, N18.32 [...] Past Histories independently gathered by the clinical marketing support manager and the remaining scribed note accurately describes [...] PM. Mariza Graham MA documented in this encounterKet[facility]07-15-2024 NoteHNO ID: [id number] Author: AMADO JAMES MD Service: ? Author [...] taking ASA 81 mg daily. Follows with [place] [facility]; had recent echo showing no change [...] 1 capsule by mouth once daily. Insulin [place], Disposable, (RELION PEN NEEDLES) 32 x 5/32 " ndle Use as directed with insulin pen. 250.00. 4 injections/day. On insulin. Blood-Glucose Meter, Drum-type (ACCU-CHEK COMPACT PLUS CARE) kit Use as directed cyanocobalamin (VITAMIN B-12) 1,000 mcg tab Take 1 tablet by mouth once daily. Aspirin 81 mg Tab Take 81 mg by mouth. (more content not included)...[facility]07-09-2024 Telephone encounter Note* Telephone Encounter - Maciel Busby APRN.CNP - 04/04/2024 10:49 AM EDT STAMP Please reach out to patient for overdue appointment for chronic disease management with myself. If he/she is no longer following with Dr. James, please remove name from PCP field. Due for Medicare Wellness/Follow up, would need 40 minutes. Maciel Busby APRN.CNP [facility]07-09-2024 Miscellaneous Notes* Telephone Encounter - Maciel Busby APRN.CNP - 04/04/2024 10:49 AM EDT STAMP Please reach out to patient for overdue appointment for chronic disease management with myself. If he/she is no longer following with Dr. James, please remove name from PCP field. Due for Medicare Wellness/Follow up, would need 40 minutes. Maciel Busby APRN.CNP documented in this encounterKettering Health [facility]06-03-2024 NoteHNO ID: [id number] Author: JESSICA MCKINNON MA Service: ? Author Type: Title One Reading Teacher Type: Progress Notes Filed: 02/28/2024 11:30 Note Text: POPULATION HEALTH NAVIGATION OUTREACH Action/FYI Patient is on [facility] CURRENT ROSTER Workbench list for [...] Jessica Mckinnon MA February 28, 2024 11:27 [facility]06-03-2024 History of Present illness Narrative* Jessica Mckinnon MA - 02/28/2024 11:27 AM EDT POPULATION HEALTH NAVIGATION OUTREACH Action/FYI Patient is on [facility] CURRENT ROSTER Workbench list for below [...] 28, 2024 11:27 AM documented in this encounterKettering Health [facility]06-03-2024 NotePatient Outreach (NETNAV) ROSA MYERS ([id number]) 1950 F Date Time Provider Department 02/28/24 JESSICA MCKINNON During your visit today, we recorded the following information about you: Jessica Mckinnon MA 02/28/2024 11:30 AM Signed POPULATION HEALTH NAVIGATION OUTREACH Action/FYI Patient is on [facility] CURRENT ROSTER Workbenc list for below and [...] Visit: Population Health Navigation Outreach [3910] Cmt: [facility] 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 - AWV, Care [...] capsule by mouth once daily. - Insulin [place], Disposable, (RELION PEN NEEDLES) 32 x 5/32 [...] kidney disease, stage 4 (severe) (HCC) *04/15/2023 termination clerk current use of insulin (HCC) [Z79.4] 10/15/2023 Heart failure, unspecified (HCC) [I50.9] 04/15/2023 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*04/15/2023 Encounter Status:Closed by JESSICA MCKINNON on 02/28/24[facility]05-28-20[facility] Telephone encounter Note* Telephone Encounter - Maciel Busby APRN.CNP - 02/22/2024 2:32 PM EDT The following approved medication requests have been transmitted electronically. Requested Prescriptions Pending Prescriptions Disp Refills carvedilol (COREG) 12.5 mg tablet 180 tablet 3 Sig: Take 1 tablet by mouth two times a day. Maciel Busby APRN.CNP [facility]05-28-2024 Miscellaneous Notes* Telephone Encounter - Maciel Busby [...] Thank you. Cindy Heart. documented in this encounterKettering Health [facility] Center05-28-2024 Telephone encounter Note * Telephone Encounter - [...] found Please advise. Thank you. Cindy Heart. [facility]04-25-2024 Telephone encounter Note* Telephone Encounter - Yaz Christy MA - 01/20/2024 2:12 PM EDT Call to pt's son and notified him that Rx has been sent in, verbalized understanding. Yaz Christy MA [facility]04-25-2024 Miscellaneous Notes* Telephone Encounter - Yaz Christy [...] patient. Pended per request. Judie Paiz RN documented in this encounterKettering Health [facility] Center04-25-2024 Telephone encounter Note * Telephone Encounter - Amado James MD - 01/20/2024 1:58 PM EDT OK to refill as ordered Amado James MD [facility]04-25-2024 NoteHNO ID: [id number] Author: CINDY EVANS MA Service: ? Author Type: Title One Reading Teacher Type: Progress Notes Filed: 01/20/2024 11:04 Note Text: POPULATION HEALTH NAVIGATION OUTREACH Action/FYI Letter received and sent to be mailed. Navigation Signature: Cindy Evans Population Health Navigator January 20, 2024 11:03 [facility]04-25-2024 Telephone encounter Note* Telephone Encounter - Judie [...] patient. Pended per request. Judie Paiz, RN [facility]04-23-2024 NoteHNO ID: [id number] Author: JESSICA MCKINNON MA Service: ? Author Type: Title One Reading Teacher Type: Progress Notes Filed: 01/18/2024 10:23 Note [...] Jessica Mckinnon MA January 18, 2024 7:29 [facility]04-23-2024 History of Present illness Narrative* Jessica Mckinnon [...] 18, 2024 7:29 AM documented in this encounterKettering Health [facility] Center04-23-2024 NotePatient Outreach (NETNAV) ROSA MYERS ([id number]) 1950 F Date Time Provider Department 01/18/24 JESSICA MKCINNON NETNAV During your visit today, we recorded the following information about you: Jessica Mckinnon MA 01/18/2024 10:23 AM Addendum POPULATION HEALTH NAVIGATION OUTREACH Action/ Patient is on [employer] Workbench [...] capsule by mouth once daily. - Insulin [place], Disposable, (RELION PEN NEEDLES) 32 x 5/32 [...] kidney disease, stage 4 (severe) (HCC) *04/15/2023 halfway current use of insulin (HCC) [Z79.4] 10/15/2023 Heart failure, unspecified (HCC) [I50.9] 04/15/2023 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*04/15/2023 Letter Text Encoun (more content not included)...[facility]04-18-2024 Miscellaneous Notes* Telephone Encounter - Amado [...] Thank you. Anastasia Mcdermott. documented in this encounterKet[facility]03-07-2024 Miscellaneous Notes* Telephone Encounter - Maciel Busby [...] patient. Pushpa Neff Pss documented in this encounterKettering Health Behavioral Medical Center03-01-2024 History of Present illness Narrative* Sandrita Caputo - 11/26/2023 1:21 PM EST Rosa Myers is identified through a medication adherence outreach initiative based on pharmacy claims data from [employer] (insurer) for Statin medication(s). Patient is reviewed [...] left message Sandrita Caputo documented in this encounterKettering Health [facility] Center09-25-2023 Miscellaneous Notes* Telephone Encounter - Cha Taveras [...] recheck. Maciel Busby APRN.CNP documented in this encounterKettering Health Behavioral Medical Center09-18-2023 Miscellaneous Notes* Telephone Encounter - Maciel Busby [...] and advise. Sandrita Weldon documented in this encounterKettering Health Behavioral Medical Center07-20-2023 History of Present illness Narrative* Amado James [...] to help. 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 HM - Denies having Adv Dir/Living [...] 1 capsule by mouth once daily. Insulin [place], Disposable, (RELION PEN NEEDLES) 32 x 5/32 [...] Past Histories independently gathered by the clinical marketing support manager and the remaining scribed note accurately describes [...] PM. Yaz Christy Ma documented in this encounterKettering Health [facility]05-01-2023 History of Present illness Narrative* Samia Lear Population Health Navigator - 01/25/2023 10:33 AM [...] Gap or Scheduling/Wellness visits Payer: Payor: [employer] / Plan: [employer] ACCESS / Product Type: PPO / Care [...] 25, 2023 10:41 AM documented in this encounterKettering Health [facility] Center04-24-2023 Miscellaneous Notes* Telephone Encounter - Mariza Graham Ma - 01/18/2023 11:12 AM EDT Order report for Humalog faxed to [facility], notifying them to fill. Mariza Graham Ma * Telephone Encounter - Sunni Brody [facility] - 01/18/2023 10:38 AM EDT Rosa Myers is calling Amado James MD today with concern regarding the RX for Humalog isis has not been received at the [facility] pharmacy in [place]. Please send today if possible. Patientstates she did call our office and was advised this RX was already sent to [facility]. Patient notes the pharmacy has checked for this new RX and they state they do not have receipt of this. Patient has been identified by name and birthdate. Duration of symptoms: N/A Person calling: self Call patient at: at home [phone] (home) Was an appointment scheduled: No Closing statement: Results or non-symptom based questions: Thank you for calling [facility], your call will be returned within the next business day. Sunni Kampylese documented in this encounterKettering Health [facility]03-29-2023 History of Present illness Narrative* Aston Duarte ([facility]) - 12/23/2022 5:59 PM EDT Rosa Myers is identified through a medication adherence outreach initiative based on pharmacy claims data from [employer] (insurer) for Non-insulin DM medication(s). Patient is reviewed 12/23/22 due to medication adherence concerns with the following medications (name, strength, sig): Farxiga 10mg, QD. Per reconcile dispense, last fill date and days supply: Filled 12/15/22 for 30 day supply Outcome of review/outreach: (choose outcome source and status) - Filled before Next fill date per reconcile dispense Aston Duarte ([facility]) documented in this encounterKet[facility]03-20-2023 Miscellaneous Notes* Telephone Encounter - Maciel Busby [...] patient. Pushpa Neff Pss documented in this encounterKettering Health Behavioral Medical Center02-07-2023 Miscellaneous Notes* Telephone Encounter - Yaz hCristy Ma - 11/03/2022 3:21 PM EST The [...] prescriptions. Kathi Crane LPN documented in this encounterKettering Health [facility] Center10-19-2022 Miscellaneous Notes* Telephone Encounter - Amado James [...] Thank you. Rufina Stuart documented in this encounterKettering Health Behavior[facility] Medical Center10-18-2022 Miscellaneous Notes* Telephone Encounter - Maciel Busby APRN.BMW SERVICE TECHNICIAN - 07/14/2022 11:55 AM EDT The following [...] notify patient. Nata Bear documented in this encounterKettering Health Behavioral Medical Center10-17-2022 History of Present illness Narrative* Amado James [...] CATARACT EXTRACTION HX Right 10/26/2017 EGD W/O [facility] SPEC VARICIES INJ N/A 02/24/2022 LIG/TRNSXJ FLP [...] 4 times daily to inject insulin Insulin [place], Disposable, (RELION PEN NEEDLES) 32 x 5/32 [...] Lymph% 07/06/2022 15.4 Abs Lymph 07/06/2022 1.30 Furnas% 07/06/2022 9.6 Abs Furnas 07/06/2022 0.81 Eosin% 07/06/2022 1.7 Abs Eosin [...] Past Histories independently gathered by the clinical marketing support manager and the remaining scribed note accurately describes [...] PM. Yaz Christy Ma documented in this encounterKettering Health [facility] Center07-12-2022 Instructions* Patient Instructions* Yaz Christy Ma - 04/07/2022 3:35 PM EDT Anemia - Take Iron once daily, may only need to take for a few months. Gastro - Continue to take Protonix 40 mg once daily. New prescription has been sent into the pharmacy. Skin - Refer to Dermatology to evaluate the area, if not improving. documented in this encounterKettering [facility] Center07-12-2022 History of Present illness Narrative* Amado James [...] hospital f/u. Pt here today with her [id number], Ave. GI - Was prescribed Protonix 40 [...] 75 mg once daily. HM - Declines Stitch.es. Does not have Adv Dir/Living Will. Past [...] 4 times daily to inject insulin Insulin [place], Disposable, (RELION PEN NEEDLES) 32 x 5/32 [...] Lymph% 04/02/2022 10.7 Abs Lymph 04/02/2022 1.17 Furnas% 04/02/2022 7.3 Abs Furnas 04/02/2022 0.80 Eosin% 04/02/2022 1.1 Abs Eosin [...] Past Histories independently gathered by the clinical marketing support manager and the remaining scribed note accurately describes [...] PM. Yaz Christy Ma documented in this encounterKettering Health Behavior[facility] Center06-20-2022 History of Present illness Narrative* Samia Hollingsworth [...] Gap or Scheduling/Wellness visits Payer: Payor: [employer] / Plan: ANTHTON[employer] ACCESS / Product [...] 16, 2022 2:38 PM documented in this encounterKettering Health [facility] Center01-04-2022 History of Past illness Narrative* Problem Noted Date Diagnosed Date Resolved Date Stage 3b chronic kidney disease 09/30/2021 10/15/2023 documented as of this encounter (statuses as of 11/26/2023) [facility]01-04-2022 History of Past illness Narrative* Problem Noted Date Diagnosed Date Resolved Date Stage 3b chronic kidney disease 09/30/2021 10/15/2023 documented as of this encounter (statuses as of 12/02/2023) [facility]01-04-2022 History of Past illness Narrative* Problem Noted Date Diagnosed Date Resolved Date Stage 3b chronic kidney disease 09/30/2021 10/15/2023 documented as of this encounter (statuses as of 01/14/2024) [facility]01-01-2014 Evaluation note* Diagnosis Onset Date Resolution Status SALGADO (dyspnea on exertion) ac osei 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 heart failure) chronic Essential hypertension chron ic History of coronary artery stent placement September, chronic Hyperlipidemia chronic Ischemic cardiomyopathy take up operator daniel [facility] Work Phone: Evaluation note* Diagnosis Onset Date Resolution Status ELIDA (acute kidney injury) ac osei Anemia acute Elevated d-dimer acute GI bleed acute CHF exacerbation chronic [facility] Work Phone: Evaluation note* Diagnosis Encounter for screening mammogram for breast cancer documented [facility] this encounter [facility]* Diagnosis Onset Date Resolution Status ELIDA (acute kidney injury) re solved CHF exacerbation resolved Elevated d-dimer resolved [facility] Work Phone: Evaluation note* Diagnosis Controlled [...] of digestive system documented in this encounter [facility]* Diagnosis Onset Date Resolution Status ELIDA (acute kidney injury) re solved CHF exacerbation resolved Elevated d-dimer resolved 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 heart failure) chronic Chronic kidney disease (CKD) chronic Essential hypertension chron ic History of coronary artery stent placement September, chronic Hyperlipidemia chronic Ischemic cardiomyopathy [facility] Work Phone: Evaluation note* Diagnosis Controlled type [...] of digestive system [facility] Diagnosis Controlled type 2 diabetes mellitus without complication, with long-term current use of insulin (HCC)- Primary [facility]* Diagnosis Controlled type 2 diabetes mellitus without complication, with long-term current use of insulin (HCC) Controlled type 2 diabetes mellitus without complication, without long-term current use of insulin (HCC) [facility]* Diagnosis Type 2 diabetes mellitus with stage 3b chronic kidney disease, without long-term current use of insulin (HCC)- Primary [facility]* Diagnosis Essential hypertension, benign Cerebral infarction, unspecified mechanism (HCC) [facility]* Diagnosis Encounter for screening mammogram for breast cancer documented [facility]* Diagnosis Type 2 diabetes [...] body mass index of 40.0-44.9 in adult ([facility]) Morbid obesity documented in this encounter [facility]* Diagnosis Elevated TSH- Primary Nonspecific abnormal results of thyroid function study documented [facility]* Diagnosis Bilateral leg edema Edema Essential hypertension, benign Type 2 diabetes mellitus with stage 3b chronic kidney disease, without long-term current use of insulin (HCC) Controlled type 2 diabetes mellitus without complication, with long-term current use of insulin ([facility]) [facility]* Diagnosis Type 2 diabetes mellitus with stage 3b chronic kidney disease, without long-term current use of insulin ([facility]) documented in this encounter [facility]* Diagnosis Controlled type 2 diabetes mellitus without complication, with long-term current use of insulin ([facility]) documented in this encounter [facility]* Diagnosis Essential hypertension, benign documented in this encounter [facility]* Diagnosis Hyperlipidemia, unspecified hyperlipidemia type- Primary Chronic kidney disease, stage 4 (severe) ([facility]) Heart failure, unspecified HF chronicity, unspecified heart failure type (HCC) Morbid obesity with body mass index of 40.0-44.9 in adult ([facility]) Morbid obesity Type 2 diabetes mellitus with stage 3b chronic kidney disease, without long-term current use of insulin (HCC) Essential hypertension, benign Anemia, unspecified type Bilateral leg edema Edema Cellulitis of skin Cellulitis and abscess of unspecified site Other depression documented in this encounter [facility]* Diagnosis Diabetic ulcer of right midfoot associated with type 2 diabetes mellitus, unspecified ulcer stage (HCC)- Primary Morbid obesity with body mass index of 40.0-44.9 in adult (HCC) Morbid obesity Essential hypertension, benign Type 2 diabetes mellitus with chronic kidney disease, with long-term current use of insulin, unspecified CKD stage (HCC) documented in this encounter [facility]* Diagnosis Type 2 diabetes mellitus with stage 3b chronic kidney disease, without long-term current use of insulin (HCC) Controlled type 2 diabetes mellitus without complication, with long-term current use of insulin ([facility]) [facility]* Diagnosis Encounter for annual wellness [...] body mass index of 40.0-44.9 in adult ([facility]) Morbid obesity documented in this encounter [facility] note* Diagnosis Type 2 diabetes mellitus with chronic kidney disease, with long-term current use of insulin, unspecified CKD stage (HCC)- Primary documented in this encounter [facility] note* Diagnosis Hospital discharge follow-up- Primary Other follow-up examination Type 2 diabetes mellitus with hypoglycaemia without coma ([facility]) CKD (chronic kidney disease) stage 4, GFR 15-29 ml/min ([facility]) Chronic kidney disease, Stage IV (severe) Chronic anemia Anemia, unspecified Chronic heart failure with preserved ejection fraction ([facility]) documented in this encounter [facility] note* Diagnosis Type 2 diabetes mellitus with chronic kidney disease, with long-term current use of insulin, unspecified CKD stage (HCC)- Primary Essential hypertension, benign Hyperlipidemia, unspecified hyperlipidemia type Chronic kidney disease, stage 4 (severe) ([facility]) Chronic anemia Anemia, unspecified Type 2 diabetes mellitus with stage 3b chronic kidney disease, without long-term current use of insulin (HCC) Controlled type 2 diabetes mellitus without complication, with long-term current use of insulin ([facility]) documented in this encounter [facility] note* Diagnosis Type 2 diabetes mellitus with chronic kidney disease, with long-term current use of insulin, unspecified CKD stage (HCC)- Primary documented in this encounter [facility] note* Diagnosis Type 2 diabetes mellitus with chronic kidney disease, with long-term current use of insulin, unspecified CKD stage (HCC)- Primary Essential hypertension, benign Hyperlipidemia, unspecified hyperlipidemia type Chronic kidney disease, stage 4 (severe) (HCC) documented in this encounter [facility] note* Diagnosis Anemia, unspecified type- Primary documented in this encounter [facility] note* Diagnosis Anemia, unspecified type Chronic renal failure, unspecified CKD stage Pressure injury of sacral region, stage 3 (HCC) Anemia, unspecified type Moderate malnutrition (CMS/HCC) (HCC) Acute metabolic encephalopathy Anxiety and depression Debility Unspecified debility [facility] complication, initial encounter- Primary [facility] Diagnosis Dialysis complication, subsequent encounter [facility]* Diagnosis Dialysis complication, subsequent encounter [facility]* Diagnosis ESRD (end stage renal disease) on dialysis (HCC)- Primary End stage renal disease ESRD (end stage renal disease) on dialysis (HCC) End stage renal disease [facility] Dis[facility] instructionsAmbulatory Orders* Phase II, Outpatient Cardiac Rehab Location: None Selected [employer] Work Phone: [employer] for referral (narrative)* Diagnostic Procedure Only (Routine) - Pending Review Specialty Diagnoses / Procedures Referred By Thuan jama Referred To Contact [facility] Diagnoses Encounter for screening mammogram for breast cancer Procedures BUSTER SCREENING SCREENING MAMMOGRAPHY BI 2-VIEW BREAST INC Amado Diaz MD [address] [place] [address] [facility] [address] [place] [address] Referral ID Status Reason Start Date Expiration Date Visits Requested Visits Authorized [id number] Pending Review Auto-Generat ed Referral 03/04/2022 04/03/2023 1 1 T [facility] for referral (narrative)* Diagnostic Procedure Only (Routine) - Pending Review Specialty Diagnoses / Procedures Referred By Thuan jama Referred To Contact [facility] Diagnoses Encounter for screening mammogram for breast cancer Procedures BUSTER SCREENING SCREENING MAMMOGRAPHY BI 2-VIEW BREAST INC Amado Diaz MD [address] [place] [address] [facility] [address] [place] [address] Referral ID Status Reason Start Date Expiration Date Visits Requested Visits Authorized [id number] Pending Review Auto-Generat ed Referral 02/24/2023 03/25/2024 1 1 [facility] for referral (narrative)No reason for referral information availableWK[facility] Work Phone: Reason for visit Narrative* Imaging (Emergency) - Closed Specialty Diagnoses / Procedures Referred By Thuan jama Referred To Contact Radiology Diagnoses Dialysis complication, subsequent encounter Procedures IR CVC Tunneled Dialysis Cath Exchange IR CVC tunneled dialysis catheter placement Re Maciel MD [facility] [place] [address] Phone: tel: fax: Referral ID Status Reason Start Date Expiration Date Visits Re quested Visits Authorized [id number] Closed 07/03/2025 07/03/2026 1 1 [facility] Chief Complaint and Reason for Visit [...] February 22, 2022 8 :54am Power of Position Classification Manager No May 29th, 2022 8:54am Advance Directive Response Recorded Date/ Time Advance Directives No September 28, 2013 10:29am Living Will No February 22, 2022 1 :32pm Power of Position Classification Manager No February 22, 2022 1:32pm Advance Directive Response Recorded Date/ Time Living Will No February 22, 2022 1 :32pm Do you have a Healthcare Power of Position Classification Manager? No February 22, 2022 1:32pm Living Will No September 27 1:36am Do you have a Healthcare Power of Position Classification Manager? No September 27, 2024 1:36am Living Will No October 28 1:57am Do you have a Healthcare Power of Position Classification Manager? No October 28, 2024 1:57am Advance Directives No September 28, 2013 10:29am Advance Directive Response Recorded Date/ Time Living Will No February 22, 2022 1 :32pm Do you have a Healthcare Power of Position Classification Manager? No February 22, 2022 1:32pm Living Will No September 27 1:36am Do you have a Healthcare Power of Position Classification Manager? No September 27, 2024 1:36am Living Will No October 28 1:57am Do you have a Healthcare Power of Position Classification Manager? No October 28, 2024 1:57am Do you have a Healthcare Power of Position Classification Manager? No February 05, 2025 9:52am Advance Directives No September 28, 2013 10:29am Advance Directive Response Recorded Date/ Time Living Will No February 22, 2022 1 :32pm Do you have a Healthcare Power of Position Classification Manager? No February 22, 2022 1:32pm Living Will No September 27 1:36am Do you have a Healthcare Power of Position Classification Manager? No September 27, 2024 1:36am Living Will No October 28 1:57am Do you have a Healthcare Power of Position Classification Manager? No October 28, 2024 1:57am Do you have a Healthcare Power of Position Classification Manager? No February 05, 2025 3:55pm Advance Directives [...] Referral Specialty Diagnoses / Procedures Referred By Contac t Referred To Contact Podiatry Diagnoses Diabetic ulcer of right midfoot associated with type 2 diabetes mellitus, unspecified ulcer stage (HCC) Procedures CONSULT TO PODIATRY OFFICE/OUTPATIENT [facility] 60 MINUTES Amado James MD [address] [place] [address] Referral ID Status Reason Start Date Expiration Date Visits Requested Visits Authorized [id number] Authorized PCP Requested Referral 05/06/2024 05/06/2025 1 [...] or prosecute any alcohol or drug abuse patient.[facility] CenterIn the event this information is protected by the Federal Confidentiality of Alcohol and Drug Abuse Patient Records regulations: The Federal rules restrict any use of the information to criminally investigate or prosecute any alcohol or drug abuse patient.[facility] CenterIn the event this information is protected by the Federal Confidentiality of Alcohol and Drug Abuse Patient Records regulations: The Federal rules restrict any use of the information to criminally investigate or prosecute any alcohol or drug abuse patient.[facility] CenterIn the event this information is protected by the Federal Confidentiality of Alcohol and Drug Abuse Patient Records regulations: The Federal rules restrict any use of the information to criminally investigate or prosecute any alcohol or drug abuse patient.[facility] CenterIn the event this information is protected by the Federal Confidentiality of Alcohol and Drug Abuse Patient Records regulations: The Federal rules restrict any use of the information to criminally investigate or prosecute any alcohol or drug abuse patient.[facility] CenterIn the event this information is protected by the Federal Confidentiality of Alcohol and Drug Abuse Patient Records regulations: The Federal rules restrict any use of the information to criminally investigate or prosecute any alcohol or drug abuse patient.[facility] CenterIn the event this information is protected by the Federal Confidentiality of Alcohol and Drug Abuse Patient Records regulations: The Federal rules restrict any use of the information to criminally investigate or prosecute any alcohol or drug abuse patient.[facility] CenterIn the event this information is protected by the Federal Confidentiality of Alcohol and Drug Abuse Patient Records regulations: The Federal rules restrict any use of the information to criminally investigate or prosecute any alcohol or drug abuse patient.[facility] CenterIn the event this information is protected by the Federal Confidentiality of Alcohol and Drug Abuse Patient Records regulations: The Federal rules restrict any use of the information to criminally investigate or prosecute any alcohol or drug abuse patient.[facility] CenterIn the event this information is protected by the Federal Confidentiality of Alcohol and Drug Abuse Patient Records regulations: The Federal rules restrict any use of the information to criminally investigate or prosecute any alcohol or drug abuse patient.[facility] CenterIn the event this information is protected by the Federal Confidentiality of Alcohol and Drug Abuse Patient Records regulations: The Federal rules restrict any use of the information to criminally investigate or prosecute any alcohol or drug abuse patient.[facility] CenterIn the event this information is protected by the Federal Confidentiality of Alcohol and Drug Abuse Patient Records regulations: The Federal rules restrict any use of the information to criminally investigate or prosecute any alcohol or drug abuse patient.[facility] CenterIn the event this information is protected by the Federal Confidentiality of Alcohol and Drug Abuse Patient Records regulations: The Federal rules restrict any use of the information to criminally investigate or prosecute any alcohol or drug abuse patient.[facility] CenterIn the event this information is protected by the Federal Confidentiality of Alcohol and Drug Abuse Patient Records regulations: The Federal rules restrict any use of the information to criminally investigate or prosecute any alcohol or drug abuse patient.[facility] CenterIn the event this information is protected by the Federal Confidentiality of Alcohol and Drug Abuse Patient Records regulations: The Federal rules restrict any use of the information to criminally investigate or prosecute any alcohol or drug abuse patient.[facility] CenterIn the event this information is protected by the Federal Confidentiality of Alcohol and Drug Abuse Patient Records regulations: The Federal rules restrict any use of the information to criminally investigate or prosecute any alcohol or drug abuse patient.[facility] CenterIn the event this information is protected by the Federal Confidentiality of Alcohol and Drug Abuse Patient Records regulations: The Federal rules restrict any use of the information to criminally investigate or prosecute any alcohol or drug abuse patient.[facility]In the event this information is protected by the Federal Confidentiality of Alcohol and Drug Abuse Patient Records regulations: The Federal rules restrict any use of the information to criminally investigate or prosecute any alcohol or drug abuse patient.[facility] CenterIn the event this information is protected by the Federal Confidentiality of Alcohol and Drug Abuse Patient Records regulations: The Federal rules restrict any use of the information to criminally investigate or prosecute any alcohol or drug abuse patient.[facility] CenterIn the event this information is protected by the Federal Confidentiality of Alcohol and Drug Abuse Patient Records regulations: The Federal rules restrict any use of the information to criminally investigate or prosecute any alcohol or drug abuse patient.[facility] CenterIn the event this information is protected by the Federal Confidentiality of Alcohol and Drug Abuse Patient Records regulations: The Federal rules restrict any use of the information to criminally investigate or prosecute any alcohol or drug abuse patient.[facility] CenterIn the event this information is protected by the Federal Confidentiality of Alcohol and Drug Abuse Patient Records regulations: The Federal rules restrict any use of the information to criminally investigate or prosecute any alcohol or drug abuse patient.[facility] CenterIn the event this information is protected by the Federal Confidentiality of Alcohol and Drug Abuse Patient Records regulations: The Federal rules restrict any use of the information to criminally investigate or prosecute any alcohol or drug abuse patient.[facility] CenterIn the event this information is protected by the Federal Confidentiality of Alcohol and Drug Abuse Patient Records regulations: The Federal rules restrict any use of the information to criminally investigate or prosecute any alcohol or drug abuse patient.[facility] CenterIn the event this information is protected by the Federal Confidentiality of Alcohol and Drug Abuse Patient Records regulations: The Federal rules restrict any use of the information to criminally investigate or prosecute any alcohol or drug abuse patient.[facility] CenterIn the event this information is protected by the Federal Confidentiality of Alcohol and Drug Abuse Patient Records regulations: The Federal rules restrict any use of the information to criminally investigate or prosecute any alcohol or drug abuse patient.[facility] CenterIn the event this information is protected by the Federal Confidentiality of Alcohol and Drug Abuse Patient Records regulations: The Federal rules restrict any use of the information to criminally investigate or prosecute any alcohol or drug abuse patient.[facility] CenterIn the event this information is protected by the Federal Confidentiality of Alcohol and Drug Abuse Patient Records regulations: The Federal rules restrict any use of the information to criminally investigate or prosecute any alcohol or drug abuse patient.[facility] CenterIn the event this information is protected by the Federal Confidentiality of Alcohol and Drug Abuse Patient Records regulations: The Federal rules restrict any use of the information to criminally investigate or prosecute any alcohol or drug abuse patient.[facility] CenterIn the event this information is protected by the Federal Confidentiality of Alcohol and Drug Abuse Patient Records regulations: The Federal rules restrict any use of the information to criminally investigate or prosecute any alcohol or drug abuse patient.[facility] CenterIn the event this information is protected by the Federal Confidentiality of Alcohol and Drug Abuse Patient Records regulations: The Federal rules restrict any use of the information to criminally investigate or prosecute any alcohol or drug abuse patient.[facility] CenterIn the event this information is protected by the Federal Confidentiality of Alcohol and Drug Abuse Patient Records regulations: The Federal rules restrict any use of the information to criminally investigate or prosecute any alcohol or drug abuse patient.[facility] CenterIn the event this information is protected by the Federal Confidentiality of Alcohol and Drug Abuse Patient Records regulations: The Federal rules restrict any use of the information to criminally investigate or prosecute any alcohol or drug abuse patient.[facility] CenterIn the event this information is protected by the Federal Confidentiality of Alcohol and Drug Abuse Patient Records regulations: The Federal rules restrict any use of the information to criminally investigate or prosecute any alcohol or drug abuse patient.[facility] CenterIn the event this information is protected by the Federal Confidentiality of Alcohol and Drug Abuse Patient Records regulations: The Federal rules restrict any use of the information to criminally investigate or prosecute any alcohol or drug abuse patient.[facility] CenterIn the event this information is protected by the Federal Confidentiality of Alcohol and Drug Abuse Patient Records regulations: The Federal rules restrict any use of the information to criminally investigate or prosecute any alcohol or drug abuse patient.[facility] CenterIn the event this information is protected by the Federal Confidentiality of Alcohol and Drug Abuse Patient Records regulations: The Federal rules restrict any use of the information to criminally investigate or prosecute any alcohol or drug abuse patient.[facility] CenterIn the event this information is protected by the Federal Confidentiality of Alcohol and Drug Abuse Patient Records regulations: The Federal rules restrict any use of the information to criminally investigate or prosecute any alcohol or drug abuse patient.[facility] CenterIn the event this information is protected by the Federal Confidentiality of Alcohol and Drug Abuse Patient Records regulations: The Federal rules restrict any use of the information to criminally investigate or prosecute any alcohol or drug abuse patient.[facility] CenterIn the event this information is protected by the Federal Confidentiality of Alcohol and Drug Abuse Patient Records regulations: The Federal rules restrict any use of the information to criminally investigate or prosecute any alcohol or drug abuse patient.[facility] CenterIn the event this information is protected by the Federal Confidentiality of Alcohol and Drug Abuse Patient Records regulations: The Federal rules restrict any use of the information to criminally investigate or prosecute any alcohol or drug abuse patient.[facility] CenterIn the event this information is protected by the Federal Confidentiality of Alcohol and Drug Abuse Patient Records regulations: The Federal rules restrict any use of the information to criminally investigate or prosecute any alcohol or drug abuse patient.[facility] CenterIn the event this information is protected by the Federal Confidentiality of Alcohol and Drug Abuse Patient Records regulations: The Federal rules restrict any use of the information to criminally investigate or prosecute any alcohol or drug abuse patient.[facility] CenterIn the event this information is protected by the Federal Confidentiality of Alcohol and Drug Abuse Patient Records regulations: The Federal rules restrict any use of the information to criminally investigate or prosecute any alcohol or drug abuse patient.[facility] CenterIn the event this information is protected by the Federal Confidentiality of Alcohol and Drug Abuse Patient Records regulations: The Federal rules restrict any use of the information to criminally investigate or prosecute any alcohol or drug abuse patient.[facility] CenterIn the event this information is protected by the Federal Confidentiality of Alcohol and Drug Abuse Patient Records regulations: The Federal rules restrict any use of the information to criminally investigate or prosecute any alcohol or drug abuse patient.[facility] CenterIn the event this information is protected by the Federal Confidentiality of Alcohol and Drug Abuse Patient Records regulations: The Federal rules restrict any use of the information to criminally investigate or prosecute any alcohol or drug abuse patient.[facility] CenterIn the event this information is protected by the Federal Confidentiality of Alcohol and Drug Abuse Patient Records regulations: The Federal rules restrict any use of the information to criminally investigate or prosecute any alcohol or drug abuse patient.[facility] CenterIn the event this information is protected by the Federal Confidentiality of Alcohol and Drug Abuse Patient Records regulations: The Federal rules restrict any use of the information to criminally investigate or prosecute any alcohol or drug abuse patient.[facility] CenterIn the event this information is protected by the Federal Confidentiality of Alcohol and Drug Abuse Patient Records regulations: The Federal rules restrict any use of the information to criminally investigate or prosecute any alcohol or drug abuse patient.[facility] CenterIn the event this information is protected by the Federal Confidentiality of Alcohol and Drug Abuse Patient Records regulations: The Federal rules restrict any use of the information to criminally investigate or prosecute any alcohol or drug abuse patient.[facility] CenterIn the event this information is protected by the Federal Confidentiality of Alcohol and Drug Abuse Patient Records regulations: The Federal rules restrict any use of the information to criminally investigate or prosecute any alcohol or drug abuse patient.[facility] CenterIn the event this information is protected by the [facility] Confidentiality of Alcohol and Drug Abuse Patient Records regulations: The Federal rules restrict any use of the information to criminally investigate or prosecute any alcohol or drug abuse patient.[facility] CenterIn the event this information is protected by the Federal Confidentiality of Alcohol and Drug Abuse Patient Records regulations: The Federal rules restrict any use of the information to criminally investigate or prosecute any alcohol or drug abuse patient.[facility] Care Teams (unrecognized sec tion and content) [employer] Relationship Specialty Start Date End Date Amado James MD [address], [place] [address] PCP - General 04/25/09 [employer] Relationship Specialty Start Date End Date Amado James MD [address] [place] [address] PCP - General 04/25/09 [employer] Relationship Specialty Start Date End Date Amado James MD [address] [place] [address] PCP - General 04/25/09 [employer] Developer Relationship Specialty Start Date End Date Amado James MD [address] [place] [address] PCP - General 04/25/09 [employer] Developer Relationship Specialty Start Date End Date Amado James MD [address] [place] [address] PCP - General 04/25/09 [employer] Relationship Specialty Start Date End Date Amado James MD [address] [place] [address] PCP - General 04/25/09 [employer] Developer Relationship Specialty Start Date End Date Amado James MD [address] [place] [address] PCP - General 04/25/09 [employer] Developer Relationship Specialty Start Date End Date Amado James MD [address] [place] [address] PCP - General 04/25/09 [employer] Developer Relationship Specialty Start Date End Date Amado James MD [address] [place] [address] PCP - General 04/25/09 [employer] Developer Relationship Specialty Start Date End Date Amado James MD [address] [place] [address] PCP - General 04/25/09 [employer] Developer Relationship Specialty Start Date End Date Amado James MD [address] [place] [address] PCP - General 04/25/09 [employer] Developer Relationship Specialty Start Date End Date Amado James MD [address] [place] [address] PCP - General 04/25/09 [employer] Relationship Specialty Start Date End Date Amado James MD [address] [place] [address] PCP - General 04/25/09 Team Status: Active Member Role Status Dates Dr. Amado James MD Family Provider Active Dr. Amado James MD Primary Care Provider Active Team Status: Inactive Member Role Status Dates Dr. Amado James MD Primary Care Provider, Referr ing Provider Active Carmela Funk LOOP TACKER, LOOP TACKER-C Attending Provider Active Team Status: Inactive Member Role Status Dates Dr. Amado James MD Primary Care Provider Active Carmela Funk LOOP TACKER, LOOP TACKER-C Attending Provider, Referring P andrew Active [employer] Relationship Specialty Start Date End Date Amado James MD [address] [place] [address] PCP - General 04/25/09 [employer] Developer Relationship Specialty Start Date End Date Amado James MD [address] [place] [address] PCP - General 04/25/09 [employer] Developer Relationship Specialty Start Date End Date Amado James MD [address] [place] [address] PCP - General 04/25/09 [employer] Developer Relationship Specialty Start Date End Date Amado James MD [address] [place] [address] PCP - General 04/25/09 [employer] Developer Relationship Specialty Start Date End Date Amado James MD [address] [place] [address] PCP - General 04/25/09 [employer] Developer Relationship Specialty Start Date End Date Amado James MD [address] [place] [address] PCP - General 04/25/09 [employer] Developer Relationship Specialty Start Date End Date Amado James MD [address] [place] [address] PCP - General 04/25/09 [employer] Developer Relationship Specialty Start Date End Date Amado James MD [address] [place] [address] PCP - General 04/25/09 [employer] Developer Relationship Specialty Start Date End Date Amado James MD [address] [place] [address] PCP - General 04/25/09 [employer] Developer Relationship Specialty Start Date End Date Amado James MD [address] [place] [address] PCP - General 04/25/09 [employer] Developer Relationship Specialty Start Date End Date Amado James MD [address] [place] [address] PCP - General 04/25/09 [employer] Developer Relationship Specialty Start Date End Date Amado James MD [address] [place] [address] PCP - General 04/25/09 [employer] Developer Relationship Specialty Start Date End Date Amado James MD [address] [place] [address] PCP - General 04/25/09 [employer] C[employer] Developer Relationship Specialty Start Date End Date Amado James MD [address] [place] [address] PCP - General 04/25/09 [employer] C[employer] Developer Relationship Specialty Start Date End Date Amado James MD [address] [place] [address] PCP - General 04/25/09 [employer] C[employer] Developer Relationship Specialty Start Date End Date Amado James MD [address] [place] [address] PCP - General 04/25/09 Rufina Soares APRN.BMW SERVICE TECHNICIAN [address] [place] [address] [facility] 09/03/24 [employer] Developer Relationship Specialty Start Date End Date Amado James MD [address] [place] [address] PCP - General 04/25/09 Rufina Soares, RENITA.BMW SERVICE TECHNICIAN [address] [place] [address] [facility] 09/03/24 [employer] Developer Relationship Specialty Start Date End Date Amado James MD [address] [place] [address] PCP - General 04/25/09 Rufina Soares PROPERTY MANAGEMENT COORDINATOR.BMW SERVICE TECHNICIAN [address] [place] [address] [facility] 09/03/24 Maciel Busby PROPERTY MANAGEMENT COORDINATOR.BMW SERVICE TECHNICIAN [address] [place] [address] [facility] 09/12/24 [employer] Developer Relationship Specialty Start Date End Date Amado James MD [address] [place] [address] PCP - General 04/25/09 Rufina Soares APRN.BMW SERVICE TECHNICIAN [address] [place] [address] [facility] 09/03/24 Maciel Busby APRN.BMW SERVICE TECHNICIAN [address] [place] [address] [facility] [employer] C[employer] Developer Relationship Specialty Start Date End Date Amado James MD [address] [place] [address] PCP - General 04/25/09 Rufina Soares APRN.BMW SERVICE TECHNICIAN [address] [place] [address] [facility] 09/03/24 Maciel Busby APRN.BMW SERVICE TECHNICIAN [address] [place] [address] [facility] [employer] C[employer] Developer Relationship Specialty Start Date End Date Amado James MD [address] [place] [address] PCP - General 04/25/09 Rufina Soares APRN.BMW SERVICE TECHNICIAN [address] [place] [address] [facility] 09/[facility]/24 Maciel Busby APRN.BMW SERVICE TECHNICIAN [address] [place] [address] [facility] 09/12/24 [employer] C[employer] Developer Relationship Specialty Start Date End Date Amado James MD [address] [place] [address] PCP - General 04/25/09 Rufina Soares APRN.BMW SERVICE TECHNICIAN [address] [place] [address] [facility] 09/03/24 Maciel Busby APRN.BMW SERVICE TECHNICIAN [address] [place] [address] [facility] 09/12/24 [employer] Developer Relationship Specialty Start Date End Date Amado James MD [address] [place] [address] PCP - General 04/25/09 Rufina Soares PROPERTY MANAGEMENT COORDINATOR.BMW SERVICE TECHNICIAN [address] [place] [address] [facility] 09/03/24 Maciel Busby PROPERTY MANAGEMENT COORDINATOR.BMW SERVICE TECHNICIAN [address] [place] [address] [facility] 09/12/24 Team Status: Active Member Role Status [...] 29, 2025 End: January 29, 2025 ORION Crutis Attending Provider Active St art: January 29, [...] February 05, 2025 Dr. Eduardo Corona , DO Emergency Provider Active Start: February 05, [...] t: February 05, 2025 Dr. Jose Pool , Other Provider Active Start : February 05, [...] February 05, 2025 Dr. Thad Cohen , Other Provider Active St art: February 05, [...] Provider Active Start: February 07, 2025 Dr. Edaurdo Corona , Emergency Provider Active Start: February [...] February 08, 2025 Dr. Eduardo Corona , DO Emergency Provider Active Start: February 08, 2025 Dr. Zachery Gomez MD Admit Provider Active Sta rt: February 08, 2025 Dr. Zachery Gomez MD Other Provider Active Sta rt: February 08, 2025 Dr. Leyda Cardona MD Other Provider Active St art: February 08, 2025 Dr. Roosevelt Moss MD Other Provider Active Start: February 08, 2025 Dr. Jose Pool , DO Attending Provider Active S tart: February [...] 09, 2025 Dr. Jose Pool , DO Attending Provider Active S tart: February [...] Sta rt: February 09, 2025 Dr. Zachery Goemz MD Other Provider Active Sta rt: February [...] t: February 10, 2025 Dr. Thad Cohen DO Other Provider [...] Active Start: February 10, 2025 Dr. Eduardo Coroan DO Emergency Provider Active Start: February 10, [...] Active Start : February 10, 2025 Dr. Oscra Weinstein MD Other Provider Active Sta rt: [...] t: February 10, 2025 Dr. Thad Cohen DO Other Provider [...] Active Star t: February 12, 2025 Dr. Joes Pool , Other Provider Active Start : [...] Provider Active S tart: February 12, 2025 [employer] C[employer] Developer Relationship Specialty Start Date End Date Amado James MD [address] [place] [address] PCP - General 04/25/09 Rufina Soares APRN.BMW SERVICE TECHNICIAN [address] [place] [address] [employer] [facility] 09/03/24 02/07/25 Maciel Busby APRN.BMW SERVICE TECHNICIAN [address] [facility] [address] [employer] 09/12/24 Reason for Visit (unrecogniz ed section and content) Reason Onset Date Comments Population Health Navigation Outreach 03/16/2022 [facility] Reason Comments F/U 6 Month Reason Comments F/U 3 Month Reason Onset Date Comments Refill Request 07/14/2022 Reason Onset Date Comments Refill Request 07/15/2022 Reason Comments Medication Problem Reason Onset Date Comments Refill Request 12/14/2022 Reason Onset Date Comments Allied Health Visit 12/23/2022 Medication A dherence Outreach Reason Onset Date Comments Population Health Navigation Outreach 01/25/2023 [facility] Care Gap Reason Comments Refill Request Reason Comments Results Reason Onset Date Comments Allied Health Visit 11/26/2023 Medication A dherence Outreach Reason Onset Date Comments Refill Request 12/02/2023 Reason Onset Date Comments Refill Request 01/13/2024 Reason Onset Date Comments Population Health Navigation Outreach 01/18/2024 [place] [facility], Care gaps, HCC gap closure - [place] [facility] Reason Onset Date Comments Refill Request 01/20/2024 Reason Onset Date Comments Refill Request 02/22/2024 Reason Onset Date Comments [facility] Navigation Outreach 02/28/2024 [place] [facility] 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 - AWV, Care gaps, HCC gap closure - [place] [facility] Reason Comments Appointment Reason Comments Physical Reason Onset Date Comments Population Health Navigation Outreach 05/03/2024 [place] [facility] - [place] [facility] Reason Comments Wound Evaluation Bottom of [...] Comments Patient Update Blood Sugars Reason Comments Jail Continued Plan of Care Reason Comments Follow Up 1 week DM Reason Comments Patient Update Reason Onset Date Comments Population Health Navigation Outreach 10/06/2024 [place] CARTER Reason Comments Clinical Update re-cert for hh Reason Onset Date Comments Refill Request 11/08/2024 Reason Comments POC update Reason Comments Follow Up 2 month follow up Reason Comments Other Sent from [facility] for low HGB[facility]. Pt is trach/vent dependant, A&Ox2-3 per EMS. RT called to the bedside. Pt does daily hemodialysis through R chest wall cath Specialty Diagnoses / Procedures Referred By Contnadia t Referred To Contact Diagnoses Anemia Anemia, unspecified type Chronic renal failure, unspecified CKD stage Procedures ... Sharyn Amaya MD [address] [address] Phone: tel: fax: [facility] Intensive Care Unit ICU [address] [place] [address] Phone: tel: Referral ID Status Reason Start Date Expiration Date Visits Re quested Visits Authorized [id number] Reason Comments Vascular Access Problem Pt arrives to ED via [facility] from [facility] for a clogged dialysis catheter. Reason Comments Other Patient presents thr ough triage from [facility], staff states that patient needs new dialysis line and needs to have dialysis, last had half a treatment on Wednesday Reason Comments Other Pt here from [facility] to have dialysis catheter replaced. Procedure completed, here for dialysis before transported back. Pt is trach/vent dependent and oriented via mouthing words and nodding head. PEG tube in place Specialty Diagnoses / Procedures Referred By Contac t Referred To Contact Diagnoses ESRD (end stage renal disease) on dialysis (HCC) Procedures .. Griffin Peters MD [address] [place] [address] Phone: tel: fax: [facility] Surgical Trauma Neuro Intensive Care Unit STN ICU T[address] [place] [address] Phone: tel: Referral ID Status Reason Start Date Expiration Date Visits Re quested Visits Authorized [id number] 1 1 INFORMATION SOURCE (unrecogn ized section and content) DATE CREATED AUTHOR 12/19/2024 [facility] DATE CREATED AUTHOR AUTHOR'S ORGANIZ ATION 05/10/2025 [facility] DATE CREATED AUTHOR AUTHOR'S ORGANIZ ATION 07/07/2025 [facility] DATE CREATED AUTHOR AUTHOR'S ORGANIZ ATION 08/01/2025 [facility] Scheduled Active and Recently Administ ered [...] Marion Swartz RN)2122 (Given - Provider: Bladimir Mazariegos RN) 0828 [...] Cha Luna RN)1758 (Stopped - Provider: Marion Swratz RN) 0507 (New Bag - Provider: José [...] Wed06/13/25 at 0900, Indications: ESRD on Dialysis 09 (Given - Provider: Marion Swartz RN) FLUoxetine (PROzac) capsule 20 mg 20 mg, Per G Tube, Daily, First dose (after last modification) on Wed06/02/25 at 0900 0950 (Given - Provider: Marion Swartz RN) 0903 (Given - Provider: Marion Swartz RN) 0828 (Given - Provider: Marion Swartz RN) furosemide (Lasix) tablet 20 mg 20 mg, Per G Tube, Daily, First dose (after last modification) on 06/02/25 at 0900 1711 (Given - Provider: Cha Luna RN) 901 (Given - Provider: Marion Swartz RN) 08 (Given - Provider: Marion Swartz RN) heparin injection 5,000 Units 5,000 Units, SubCUTAneous, Every 12 hours scheduled (2 times per day), First dose on Wed06/01/25 at 2100 0950 (Given - Provider: Marion Swartz RN)2012 (Given - Provider: José De Jesus RN) 901 (Given - Provider: Marion Swartz RN)2121 (Given - Provider: Bladimir Mazariegos, RN) 828 (Given - Provider: Marion Swartz RN) insulin glargine (Lantus) injection 25 Units 25 Units, SubCUTAneous, 2 times daily, First dose on Wed06/01/25 at 2100 0823 (Given - Provider: Marion Swartz RN)2012 (Given - Provider: José De Jesus RN) 901 (Given - Provider: Marion Swartz RN)2120 (Given - Provider: Bladimir Mazariegos, RYNE) 828 (Given - Provider: Marion Swartz RN) Insulin Lispro (Humalog) injection 0-6 Units 0-6 Units, SubCUTAneous, Every 6 hours, First dose on 06/02/25 at 1230, Low Dose Correction Algorithm Glucose: [...] Paula Richey RCP)2012 (Given - Provider: Cha Ramon RRT) ipratropium-albuterol (Duo-Neb) 0.5-2.5 mg/3 mL nebulizer solution [...] (Given - Provider: José De Jesus RN) 0903 (Given - Provider: Marion Swartz RN)212 (Given - Provider: Bladimir Mazariegos RN) 08 (Given - Provider: Marion Swartz RN) midodrine (Proamatine) tablet 10 mg 10 mg, Per G Tube, 3 times daily, First dose (after last modification) on 06/02/25 at 0900 0951 (Given - Provider: Marion Swartz RN)1404 (Given - Provider: Marion Swartz RN)2012 (Given - Provider: José De Jesus RN) 902 (Given - Provider: Marion Swartz RN)150 (Given - Provider: Marion Swartz RN)2121 (Given - Provider: Bladimir Mazariegos, RYNE) 827 (Given - Provider: Marion Swartz RN)142 (Given [...] RN)2121 (Given - Provider: Bladimir Mazariegos RN) 827 (Given - Provider: Marion Swartz RN) pantoprazole (ProtoNix) 40 mg in sodium chloride (PF) 0.9 % 10 mL injection 40 mg, IntraVENous, Administer over 2 Minutes, Nightly, First dose on 06/02/25 at 2100, Give only if unable to tolerate po. 2019 (Given - Provider: José De Jesus RN) 2121 (Given - Provider: Bladimir Mazariegos RN) sodium chloride 0.9% (NS) flush 10 mL 10 mL, IntraCATHeter, Every 12 hours, First dose on Dalila 06/14/25 at 2100, Administer to each lumen. Line Care. Use 10 mL or larger syringe. 52 (Given - Provider: Marion Swartz RN)2013 (Given - Provider: José De Jesus RN) 902 (Given - Provider: Marion Swartz RN)2135 (Given - Provider: Bladimir Mazariegos, RYNE) 827 (Given - Provider: Marion Swartz RN) sodium chloride 3 % hypertonic nebulizer solution 4 mL 4 mL, Nebulization, 2 times daily, First dose (after last modification) on Wed06/13/25 at 2100 0726 (Given - Provider: Paula Richey RCP)2013 (Given - Provider: Cha Ramon, LENS GAUGER) 08 (Given - Provider: Chuyita Gallegos RCP)2014 (Given - Provider: VIRIDIANA ValenciaP) 08 (Given - Provider: Chuyita Gallegos RCP) stomahesive in petrolatum (ET Mix) Topical, Every 8 hours scheduled (3 times per day), First dose on Wed06/04/25 at 2200, Apply to sacrum and right med thigh 0623 (Given - Provider: José De Jesus, RN)1404 (Given - Provider: Marion Swartz RN)2235 [...] Mix) Topical, PRN, dry skin, Starting on Wed06/04/25 at 1646 1509 (Given - Provider: Marion Swartz RN)2120 (Given - Provider: Bladimir Mazariegos RN)2122 (Given - Provider: Bladimir Mazariegos RN) 1420 (Given - Provider: Marion Swartz RN)1421 (Not Given - Provider: Marion Swartz RN [...] 2211 (Given - Provider: Nilda Moy RN) 2009 (Given - Provider: Vijaya Villar, [...] Neena Kent RN)1738 (Given - Provider: Michael Todd, RYNE) 0759 (Given - Provider: Darrell Egan, RYNE)1700 [...] 2100, Do not hold without physician order. 222 (Given - Provider: Nilda Moy, RYNE) 0956 (Given - Provider: Neena Kent RN - Comment: BS 91)2009 (Given - Provider: Vijaya Villar RN) 08 (Given - Provider: Darrell Egan, RYNE) Insulin [...] Cortez Kumar RN)0909 (Given - Provider: Neena Kent, RYNE)2010 (Given - Provider: Vijaya Villar RN) 09 (Not Given - Provider: Darrell Egan RN - Reason: Medication not available) midodrine (Proamatine) tablet 10 mg 10 mg, Per G Tube, 3 times daily, First dose on Wed07/04/25 at 2100 2211 (Given - Provider: Nilda Moy RN) 0926 (Given - Provider: Neena Kent, RYNE)1539 (Given - Provider: Michael Todd, RN)2009 (Given - Provider: Vijaya Villar RN) 0806 (Given - Provider: Darrell Egan, RYNE)1328 (Given - Provider: Darrell Egan, RYNE) mupirocin (Bactroban) 2 % ointment Topical, 3 times daily, First dose on Wed07/05/25 at 0930 0925 (Not Given - Provider: Neena Kent RN - Reason: Patient/family refused)1530 (Given - Provider: Michael Todd RN)2009 (Given - Provider: Vijaya Villar RN) 0807 (Given - Provider: Darrell Egan, RYNE)1328 (Given - Provider: Darrell Egan, RN) sodium chloride 0.9% (NS) flush 5-40 mL [...] ARTERIAL lumen 0815 (Given - Provider: Kendra Suarez, RYNE) 1200 (Given - Provider: Carmita Prasad, RN) heparin injection 2,000 Units (CANCELED) 2,000 Units, IntraCATHeter, As needed, line care, Starting on Wed07/05/25 at 0328, For VENOUS lumen 0815 (Given - Provider: Kendra Suarez, RYNE) heparin injection 2,100 Units 2,100 Units, IntraCATHeter, [...] PRN, nausea, vomiting, Starting on Wed07/04/25 at 205, 1st Line. Give IV if patient is [...] BE BASED ON THE PRIMARY CLINICAL RECORDS. [facility]. provides no warranty or guarantee of the accuracy or completeness of information in this document.
[2025-08-03 07:13] LABS: Hematocrit 21.4 % (37-47); Hemoglobin 6.7 g/dL (12.0-15.0); Immature Granulocytes Count 0.100 X10^3/uL (0.0-0.0); Mean Corp Hgb Conc 31.3 g/dL (32-36); Mean Corpuscular Volume 87.7 fL (81-99); Mean Platelet Vol. 10.3 fl (6.2-12.0); NRBC Flagged by Analyzer 0 % (0-5); Platelet Count 246 K/mm3 (150-450); RBC Distribution Width CV 17.1 % (11.6-14.6); RBC Distribution Width SD 53.7 fl (35.1-43.9); Red Blood Count 2.44 M/mm3 (4.2-5.4); White Blood Count 9.4 K/mm3 (4.4-11.0)
== END ==
LOC: OLS.SANC 05:00
PROVIDERS: PCP Family Medicine; Visit Provider Internal Medicine
DX: E11.9 Type 2 diabetes mellitus without complications (principal)
CPT/HCPCS: 36415; 85025

== ENCOUNTER → 2025-08-07 04:00 | Outpatient (REF) | payer MEDICARE, MEDICAID, SELFPAY ==
--- OUTSIDE RECORDS SUMMARY | 2025-08-07 04:25 | XMS RPT_ITS | CCD ---
Author Organization [facility] Care Team Providers Care Diorama Model Maker Name Role Phone Dr. Amado James Primary Care Provider Dr. Cindy Snyder Emergency Provider Dr. Marva Mckeon Attending Provider [phone] Dr. Amado James Primary Care Provider [phone] Dr. Juancarlos Polanco Attending Provider Dr. Marva [facility]onit [facility] Other Provider Tono, Dr. Mehta Attending Provider Dr. Zachery Gomez Attending Provider [phone] Zachery Gomez Other Provider [phone] Dr. Harry Stallings Attending Provider Amado James MD Primary Care Provider Dr. Cindy Snyder Referring Provider [phone] Dr. Harry Stallings Attending Provider Dr. Zacehry Gomez Referring Provider [phone] Zachery Gomez Referring Provider [phone] Dr. Amado James Referring Provider Dr. Amado [...] Provider Dr. Amado James Referring Provider Good ENGRAVER COPPERPLATE, ENGRAVER COPPERPLATEErlindaC Carmela Attending Provider Amado James MD Primary Care Provider Caroline PLANT PROTECTION OFFICER.SIGNAL INTELLIGENCE ANALYSTRufina Unavailable Campbell PLANT PROTECTION OFFICER.SIGNAL INTELLIGENCE ANALYST, Maciel Unavailable AMADO JAMES Primary Care Unavailable [...] Unavailable ELDERSAURABH, AMADO Olvera Primary Care Unavailable ELDERSAURAHB, AMADO Olvera Attending Unavailable ELDERSAURABH, AMADO Olvera [...] Js MOLINA, Dr. Oscar Soliz Other Provider [phone] Loly MOLINA, Dr. Liu Other Provider [phone] Israel MOLINA, Dr. Quinones Other Provider Gena MOLINA, Dr. Nieves Other Provider Dianna MOLINA, Dr. Moon Other Provider [phone] Tawanda MOLINA, Dr. Nunez Other Provider [phone] Juan Carlos MOLINA, Dr. Roberts Other Provider [phone] Abdullahi MOLINA, Dr. Mills Other Provider [phone] Rashad MOLINA, Dr. Germain Other Provider [facility]ery Hilton MD, Dr. Ash Other Provider [phone] Lea MOLINA, Dr. Orozco Other Provider Francisco MOLINA, Dr. Berger Other Provider Flora MOLINA, Dr. Quintanilla Other Provider Noel CRISTOBAL, Dr. Oneil Other Provider [phone] Christin MOLINA, Dr. Mas Other Provider [phone] Estrella MOLINA, Dr. Polk Other Provider Dr. Mike Martinez DO Other Provider Evin MOLINA, Dr. Pinzon Other Provider Nishant MOLINA, Dr. Cruz Other Provider [phone] Brendan MOLINA, Dr. Herbert Avila Attending Provider Jason MOLINA, Dr. Bingham Attending Provider Dr. Leyda Cardona MD Attending Provider Haylie MOLINA, Dr. Mcdonald Attending Provider Yrn CRISTOBAL, Dr. Garcia Attending Provider Ofelia MOLINA, Dr. Cobos Attending Provider Brendan MOLINA, Dr. Herbert Avila Other Provider Caroline PLANT PROTECTION OFFICER.SIGNAL INTELLIGENCE ANALYST, Rufina Unavailable CHEIKH PLANT PROTECTION OFFICER-SIGNAL INTELLIGENCE ANALYST, BISHNU Attending Unavailab JAS Worley MD Attending [...] PCP Referring Unavailable KLEVER RAND Attending Unavailable Oscar Poole Admitting Unavailable Oscar Poole Consulting Unavailable Ana Laura Hastings Attending Unavailable Amado James Primary Care Unavailable Rupali Kirkpatrick Consulting Unavailable Amado James Primary Care Unavailable Leyda Erwin Attending Unavailable Leyda Erwin Referring Unavailable Zachery Gomez [...] Singh Consulting Unavailable Flora, Dwight Consulting Unavailable Dheted, Thad Consulting Unavailable Tg Waller Consulting Unavailable Jam De La Rosa Consulting Unavailable Mike Martinez Consulting Unavailable Jeromy Cleary Consulting Unavailable Anthony Dillard Consulting Unavailable Zachery Gomez Consulting Unavailable Herbert Cardona Consulting Unavailable Janusz Reaves Attending Unavailable Janusz Reaves Referring Unavailable Elderbrock, Amado Primary Care Unavailable Sagar Rendon Attending Unavailable Leyda Brown Consulting Unavailable Anjum Small Consulting Unavailabl e Herbam, Ana Laura Radha Consulting Unavailable Sagar Rendon Consulting Unavailable Koram, Ana Laura Radha Referring Unavailable Jose Pool Attending Unavailable Janusz Reaves Attending Unavailable Elderbrock, Amado Primary Care Unavailable Elderbrock, Amado Referring Unavailable Oscar Poole Attending Unavailable Oscar Poole Admitting Unavailable Oscar Poole Consulting Unavailable Elderbrock, Amado Primary Care Unavailable Rupali Kirkpatrick Consulting Unavailable Harry Stallings Attending Unavailable Leyda Brown Attending Unavailable Janusz Reaves Attending Unavailable Janusz Reaves Referring Unavailable Elderbrock, Amado Primary Care Unavailable Mukkamalla Sharyn SHEPPARD Attending Unavail able Elderbrock, Amado Primary Care Unavailable Mukkamalla OLS, Mahaveer Referring Unavail able Elderbrock, Amado Primary Care Unavailable Renékkmarvalla Sharyn SHEPPARD Attending Unavail able Elderbrock, Amado Primary Care Unavailable Gueraa Sharyn SHEPPARD Attending Unavail able Alexis Servin Attending Unavailable Elderbrock, Amado Primary Care Unavailable Papito Gilbert Attending Unavailabl e Jason, Zachery Referring Unavailable Koram, Ana Laura Radha Attending Unavailable Jason, Zachery Attending Unavailable Leyda Cardona Attending Unavailable Tyson Power Attending Unavailable Rupali Kirkpatrick Attending Unavailable Ana Laura Hastings Attending Unavailable Koram, Ana Laura Radha Consulting Unavailable Herbert Cardona Referring Unavailable [facility], Amado Primary Care Unavailable Leyda Erwin Referring Unavailable Leyda Erwin Attending Unavailable Leyda Erwin Attending Unavailable Elderstanley, Amado Primary Care Unavailable Leyda Erwin Referring Unavailable [facility], Amado Primary Care Unavailable Leyda Erwin Attending Unavailable Leyda Erwin Referring Unavailable [facility], Amado Primary Care Unavailable Sharyn Vaughn Attending Unavail able Leyda Brown Referring Unavailable Miguel Naik Attending Unavailable Miguel Naik Referring Unavailable [facility], Aamdo Primary Care Unavailable Aston Chua Attending Unavailable Lea Loza Attending Unavailable [facility], Amado Primary Care Unavailable Elderstanley, Amado Referring Unavailable Harry Stallings Attending Unavailable Elderstanley, Amado Primary Care Unavailable Eduardo Figueroa Attending Unavailable Elderstanley, Amado Primary Care Unavailable Rupali Kirkpatrick Referring Unavailable Alexis Servin Attending Unavailable [facility], Amado Primary Care Unavailable Jason, Zachery Admitting Unavailable Leyda Cardona Consulting Unavailable Venkata, Ana Laura Radha Attending Unavailable [facility], Amado Primary Care Unavailable Ajay, Jayaprakas Consulting [...] Ab Consulting Unavailable Flora, Dwight Consulting Unavailable Bhavya Cohenkhdeep Consulting Unavailable Tg Waller Consulting Unavailable Jam De La Rosa Consulting Unavailable Mike Martinez Consulting Unavailable Jeromy Cleary Consulting Unavailable Anthony Dillard Consulting Unavailable Jason, Zachery Consulting Unavailable Leyda Brown Consulting Unavailable Herbert Cardona Consulting Unavailable Anjum Small Consulting Unavailabl nery Hastings, Ana Laura Radha Consulting Unavailable Weeman, Sagar Consulting Unavailable Allergies Allergy Classification Reported Allergen(s) Allergy Type Date of Onset Reaction(s) Facility (5 sources) Angiotensin-conv erting enzyme inhibitor agent; Translations: [DIANA INHIBITORS] Propensity to adverse reactions 07-17-2005 [facility] Work Phone: (20 sources) Neomycin; Translations: [NEOMYCIN] Drug Allergy 07-17-2005 [facility] Work Phone: (20 sources) Angiotensin-conv erting enzyme inhibitor agent Propensity to adverse reactions 07-17-2005 [facility] Work Phone: Medications Current Medications [...] Comment on above: Take 1 capsule by [facility] once daily. dapagliflozin 10 mg oral [...] Twice a Week. Via PEG, given on for weight gain 8 tablet 11 06/21/2025 [...] 70 Units subc utaneously every morning. Insulin [place], Disposable, (RELION PEN NEEDLES) 32 x 5/32 " ndle (20 sources) Start: 5 Insulin [place], Disposable, (RELION PEN NEEDLES) 32 x 5/32 [...] 03, 2022 10:30am 20 ml albumin human, penitentiary 250 mg/ml injection (8 sources) Human Serum [...] days. 20 tablet 0 05/06/2024 05/16/2024 Active Ohqba-Uucf-Dlggv-Collag-Mv-M in (Champ (With Collagen)) 7-7-1.5 gram Powder In Packet (3 sources) Start: 07-18-2024 End: 08-19-2024 Kuilt-Yqbd-Umfsw-Collag-Mv-M in (Champ (With Collagen)) 7-7-1.5 gram Powder [...] daily. docusate sodium 50 mg / sennosides, penitentiary 8.6 mg oral tablet (3 sources) Start: [...] 06-21-2026 Start: 04-10-2024 take 1 capsule by [facility] once daily FLUoxetine (PROZAC) 10 mg capsule [...] Soln Discontinued 1 MG IM ONE TIME 0 February 26, 2022 12:00am June 03, [...] with long-term current use of insulin ([facility]) INJECT 15 UNITS SUBCUTANEOUSLY THREE TIMES DAILY [...] without long-term current use of insulin ([facility]) , Controlled type 2 diabetes mellitus without complication, with long-term current use of insulin ([facility]) INJECT 25 UNITS SUBCUTANEOUSLY THREE TIMES DAILY WITH MEALS DIRECTED 30 Each 3 06/06/2024 09/26/2024 Discontinued Start: 02-26-2022 End: 07-15-2022 insulin lispro (HUMALOG KWIK PEN INSULIN) 100 unit/mL Indications: Controlled type 2 diabetes mellitus without complication, with long-term current use of insulin ([facility]) INJECT 20 UNITS SUBCUTANEOUSLY THREE TIMES DAILY [...] above: Take 1 tablet by [facility] once daily. Take 40 mg by mouth twice daily. polyethylene glycol 3350 63034 mg powder for oral solution (4 sources) [...] Coronary atherosclerosis; Translations: [Atherosclerotic heart disease of [place] coronary artery without angina pectoris] Onset: 5 Chronic Comment on above: Transferred to [facility] 09/2013 for intervention Deficiency and other anemia [...] sources) Long-term current use of insulin; Translations: [long-term (current) use of insulin] Onset: 10-15-2023 10-15-2023 Episodic Other aftercare (1 source) long-term (current) use of insulin; Translations: [Type 2 [...] Test Name Value Interpretation Reference Range Facility Respiratory Cultureon 2024 RESPC Normal [facility] Comment on above: Performed By: #### M 100.2400, M100.2000 ####[facility] [address] [place], [address] CBC W/Diff, Automatedon Absolute Lymph 1.11 X10 3/uL Normal 0.83-4.51 [facility] Comment on above: Order Comment: 405-2 Performed By: #### L 100.0100 ####[facility] [address] [place], [address] Absolute Neut 6.9 X10 3/uL Normal 2.0-7.7 [facility] Comment on above: Order Comment: 405-2 Performed By: #### L 100.0100 ####[facility] [address] [place], [address] Basophils/100 WBC (Bld) 0.7 % Normal 0-1 [facility] Comment on above: Order Comment: 405-2 Performed By: #### L 100.0100 ####[facility] [address] [place], [address] Eosinophils/100 WBC (Bld) 2.7 % Normal 0-5 [facility] Comment on above: Order Comment: 405-2 Performed By: #### L 100.0100 ####[facility] [address] [place], [address] Erythrocyte distribution width (RBC) [Ratio] 17.1 % High 11.6-14.6 [facility] Comment on above: Order Comment: 405-2 Performed By: #### L 100.0100 ####[facility] [address] [place], [address] Hematocrit (Bld) [Volume fraction] 21.4 % Low 37-47 [facility] Comment on above: Order Comment: 405-2 Performed By: #### L 100.0100 ####[facility] [address] [place], [address] Hemoglobin (Bld) [Mass/Vol] 6.7 g/dL Low 12.0-15.0 [facility] Comment on above: Order Comment: 405-2 Performed By: #### L 100.0100 ####[facility] [address] [place], [address] IG% 1.100 High 0.0-0.9 [facility] Comment on above: Order Comment: 405-2 Result Comment: IG% - Immature Granulocytes (promyelocytes, myelocytes andmetamyelocytes) > 1% indicates that a LEFT SHIFT is Present. Performed By: #### L 100.0100 ####[facility] [address] [place], [address] Lymphocytes/100 WBC (Bld) 11.8 % Low 19-41 [facility] Comment on above: Order Comment: 405-2 Performed By: #### L 100.0100 ####[facility] [address] [place], [address] MCH (RBC) [Entitic mass] 27.5 pg Normal 27.0-32.0 [facility] Comment on above: Order Comment: 405-2 Performed By: #### L 100.0100 ####[facility] [address] [place], [address] MCHC (RBC) [Mass/Vol] 31.3 g/dL Low 32-36 [facility] Comment on above: Order Comment: 405-2 Performed By: #### L 100.0100 ####[facility] [address] [place], [address] MCV (RBC) [Entitic vol] 87.7 fL Normal 81-99 [facility] Comment on above: Order Comment: 405-2 Performed By: #### L 100.0100 ####[facility] [address] [place], [address] Monocytes/100 WBC (Bld) 10.2 % High 0-10 [facility] Comment on above: Order Comment: 405-2 Performed By: #### L 100.0100 ####[facility] [address] [place], [address] Neutrophils/100 WBC (Bld) 73.5 % High 47-70 [facility] Comment on above: Order Comment: 405-2 Performed By: #### L 100.0100 ####[facility] [address] [place], [address] Nucleated RBC (Bld) [#/Vol] 0 10*3/uL Normal 0-5 [facility] Comment on above: Order Comment: 405-2 Performed By: #### L 100.0100 ####[facility] [address] [place], [address] Platelet mean volume (Bld) [Entitic vol] 10.3 fL Normal 6.2-12.0 [facility] Comment on above: Order Comment: 405-2 Performed By: #### L 100.0100 ####[facility] [address] [place], [address] Platelets (Bld) [#/Vol] 246 10*3/uL Normal 150-450 [facility] Comment on above: Order Comment: 405-2 Performed By: #### L 100.0100 ####[facility] [address] [place], [address] RBC (Bld) [#/Vol] 2.44 10*6/uL Low 4.2-5.[address] [facility] Comment on above: Order Comment: 405-2 Performed By: #### L 100.0100 ####[facility] [address] [place], [address] RDW SD 53.7 fl High 35.1-43.9 [facility] Comment on above: Order Comment: 405-2 Performed By: #### L 100.0100 ####[facility] [address] [place], [address] WBC (Bld) [#/Vol] 9.4 10*3/uL Normal 4.4-11.[address] [facility] Comment on above: Order Comment: 405-2 Performed By: #### L 100.0100 ####[facility] [address] [place], [address] Basic Metabolic Profile (BMP )on 08-01-2025 BUN/CRE 27.3 RATIO High 10-20 [facility] Comment on above: Order Comment: 405-2 Performed By: #### L 500.2500, L100.0500 ####[facility] [address] [place], [address] Calcium [Mass/Vol] 9.7 mg/dL Normal 7.6-11.[address] [facility] Comment on above: Order Comment: 405-2 Performed By: #### L 500.2500, L100.0500 ####[facility] [address] [place], [address] Chloride [Moles/Vol] 90 mmol/L Low 98-108 [facility] Comment on above: Order Comment: 405-2 Performed By: #### L 500.2500, L100.0500 ####[facility] [address] [place], [address] CO2 [Moles/Vol] 31.7 mmol/L Normal 21.0-32.0 [facility] Comment on above: Order Comment: 405-2 Performed By: #### L 500.2500, L100.0500 ####[facility] [address] [place], [address] Creatinine [Mass/Vol] 2.40 mg/dL High 0.70-1.20 [facility] Comment on above: Order Comment: 405-2 Performed By: #### L 500.2500, L100.0500 ####[facility] [address] [place], [address] GAP 11 Normal 5-15 [facility] Comment on above: Order Comment: 405-2 Performed By: #### L 500.2500, L100.0500 ####[facility] [address] [place], [address] GFR/1.73 sq M.predicted among non-blacks MDRD (S/P/Bld) [Vol rate/Area] 20 mL/min/{1.73_m2} Low >60 [facility] Comment on above: Order Comment: 405-2 Result Comment: mL/m in/1.73m2 CKD-EPI Creatinine Equation (2020) Performed By: #### L 500.2500, L100.0500 ####[facility] [address] [place], [address] Glucose [Mass/Vol] 199 mg/dL High 70-[address] [facility] Comment on above: Order Comment: 405-2 Performed By: #### L 500.2500, L100.0500 ####[facility] [address] [place], [address] Potassium [Moles/Vol] 3.7 mmol/L Normal 3.3-5.1 [facility] Comment on above: Order Comment: 405-2 Performed By: #### L 500.2500, L100.0500 ####[facility] [address] [place], [address] Sodium [Moles/Vol] 133 mmol/L Normal 133-[address] [facility] Comment on above: Order Comment: 405-2 Performed By: #### L 500.2500, L100.0500 ####[facility] [address] [place], [address] Urea nitrogen [Mass/Vol] 66 mg/dL High 4-19 [facility] Comment on above: Order Comment: 405-2 Performed By: #### L 500.2500, L100.0500 ####[facility] [address] [place], [address] CBC-Complete Blood Cnt No Di ffon 08-01-2025 Erythrocyte distribution width (RBC) [Ratio] 16.6 % High 11.6-14.6 [facility] Comment on above: Order Comment: 405-2 Performed By: #### L 500.2500, L100.0500 ####[facility] [address] [place], [address] Hematocrit (Bld) [Volume fraction] 21.1 % Low 37-47 [facility] Comment on above: Order Comment: 405-2 Performed By: #### L 500.2500, L100.0500 ####[facility] [address] [place], [address] Hemoglobin (Bld) [Mass/Vol] 6.8 g/dL Low 12.0-15.0 [facility] Comment on above: Order Comment: 405-2 Performed By: #### L 500.2500, L100.0500 ####[facility] [address] [place], [address] MCH (RBC) [Entitic mass] 27.6 pg Normal 27.0-32.0 [facility] Comment on above: Order Comment: 405-2 Performed By: #### L 500.2500, L100.0500 ####[facility] [address] [place], [address] MCHC (RBC) [Mass/Vol] 32.2 g/dL Normal 32-36 [facility] Comment on above: Order Comment: 405-2 Performed By: #### L 500.2500, L100.0500 ####[facility] [address] [place], [address] MCV (RBC) [Entitic vol] 85.8 fL Normal 81-99 [facility] Comment on above: Order Comment: 405-2 Performed By: #### L 500.2500, L100.0500 ####[facility] [address] [place], [address] Platelet mean volume (Bld) [Entitic vol] 10.6 fL Normal 6.2-12.0 [facility] Comment on above: Order Comment: 405-2 Performed By: #### L 500.2500, L100.0500 ####[facility] [address] [place], [address] Platelets (Bld) [#/Vol] 238 10*3/uL Normal 150-450 [facility] Comment on above: Order Comment: 405-2 Performed By: #### L 500.2500, L100.0500 ####[facility] [address] [place], [address] RBC (Bld) [#/Vol] 2.46 10*6/uL Low 4.2-5.[address] [facility] Comment on above: Order Comment: 405-2 Performed By: #### L 500.2500, L100.0500 ####[facility] [address] [place], [address] RDW SD 52.2 fl High 35.1-43.9 [facility] Comment on above: Order Comment: 405-2 Performed By: #### L 500.2500, L100.0500 ####[facility] [address] [place], [address] WBC (Bld) [#/Vol] 10.4 10*3/uL Normal 4.4-11.[address] [facility] Comment on above: Order Comment: 405-2 Performed By: #### L 500.2500, L100.0500 ####[facility] [address] [place], [address] Basic Metabolic Profile (BMP )on 07-16-2024 BUN/CRE 21.2 RATIO High 07-16 [facility] Comment on above: Order Comment: 405.2 Performed By: #### L 500.2500, L100.0500 ####[facility] [address] [place], [address] Calcium [Mass/Vol] 10.0 mg/dL Normal 7.6-11.[address] [facility] Comment on above: Order Comment: 405.2 Performed By: #### L 500.2500, L100.0500 ####[facility] [address] [place], [address] Chloride [Moles/Vol] 89 mmol/L Low 98-108 [facility] Comment on above: Order Comment: 405.2 Performed By: #### L 500.2500, L100.0500 ####[facility] [address] [place], [address] CO2 [Moles/Vol] 30.7 mmol/L Normal 21.0-32.0 [facility] Comment on above: Order Comment: 405.2 Performed By: #### L 500.2500, L100.0500 ####[facility] [address] [place], [address] Creatinine [Mass/Vol] 3.85 mg/dL High 0.70-1.20 [facility] Comment on above: Order Comment: 405.2 Performed By: #### L 500.2500, L100.0500 ####[facility] [address] [place], [address] GAP 13 Normal 5-15 [facility] Comment on above: Order Comment: 405.2 Performed By: #### L 500.2500, L100.0500 ####[facility] [address] [place], [address] GFR/1.73 sq M.predicted among non-blacks MDRD (S/P/Bld) [Vol rate/Area] 12 mL/min/{1.73_m2} Low >60 [facility] Comment on above: Order Comment: 405.2 Result Comment: mL/m in/1.73m2 CKD-EPI Creatinine Equation (2020) Performed By: #### L 500.2500, L100.0500 ####[facility] [address] [place], [address] Glucose [Mass/Vol] 234 mg/dL High 70-[address] [facility] Comment on above: Order Comment: 405.2 Performed By: #### L 500.2500, L100.0500 ####[facility] [address] [place], [address] Potassium [Moles/Vol] 3.8 mmol/L Normal 3.3-5.1 [facility] Comment on above: Order Comment: 405.2 Performed By: #### L 500.2500, L100.0500 ####[facility] [address] [place], [address] Sodium [Moles/Vol] 133 mmol/L Normal 133-[address] [facility] Comment on above: Order Comment: 405.2 Performed By: #### L 500.2500, L100.0500 ####[facility] [address] [place], [address] Urea nitrogen [Mass/Vol] 82 mg/dL High 4-19 [facility] Comment on above: Order Comment: 405.2 Performed By: #### L 500.2500, L100.0500 ####[facility] [address] [place], [address] CBC-Complete Blood Cnt No Di ffon 07-16-2025 Erythrocyte distribution width (RBC) [Ratio] 17.5 % High 11.6-14.6 [facility] Comment on above: Order Comment: 405.2 Performed By: #### L 500.2500, L100.0500 ####[facility] [address] [place], [address] Hematocrit (Bld) [Volume fraction] 24.6 % Low 37-47 [facility] Comment on above: Order Comment: 405.2 Performed By: #### L 500.2500, L100.0500 ####[facility] [address] [place], [address] Hemoglobin (Bld) [Mass/Vol] 7.7 g/dL Low 12.0-15.0 [facility] Comment on above: Order Comment: 405.2 Performed By: #### L 500.2500, L100.0500 ####[facility] [facility] [address] [place], [address] MCH (RBC) [Entitic mass] 26.9 pg Low 27.0-32.0 [facility] Comment on above: Order Comment: 405.2 Performed By: #### L 500.2500, L100.0500 ####[facility] [address] [place], [address] MCHC (RBC) [Mass/Vol] 31.3 g/dL Low 32-36 [facility] Comment on above: Order Comment: 405.2 Performed By: #### L 500.2500, L100.0500 ####[facility] [address] [place], [address] MCV (RBC) [Entitic vol] 86.0 fL Normal 81-99 [facility] Comment on above: Order Comment: 405.2 Performed By: #### L 500.2500, L100.0500 ####[facility] [address] [place], [address] Platelet mean volume (Bld) [Entitic vol] 10.1 fL Normal 6.2-12.0 [facility] Comment on above: Order Comment: 405.2 Performed By: #### L 500.2500, L100.0500 ####[facility] [address] [place], [address] Platelets (Bld) [#/Vol] 234 10*3/uL Normal 150-450 [facility] Comment on above: Order Comment: 405.2 Performed By: #### L 500.2500, L100.0500 ####[facility] [address] [place], [address] RBC (Bld) [#/Vol] 2.86 10*6/uL Low 4.2-5.[address] [facility] Comment on above: Order Comment: 405.2 Performed By: #### L 500.2500, L100.0500 ####[facility] [address] [place], [address] RDW SD 55.4 fl High 35.1-43.9 [facility] Comment on above: Order Comment: 405.2 Performed By: #### L 500.2500, L100.0500 ####[facility] [address] [place], [address] WBC (Bld) [#/Vol] 7.2 10*3/uL Normal 4.4-11.[address] [facility] Comment on above: Order Comment: 405.2 Performed By: #### L 500.2500, L100.0500 ####[facility] [address] [place], [address] [id number] 07-06-2025 [id number] Normal [facility] [id number] Normal [facility] CBC (HEMOGRAM)on 07-06-2025 Erythrocyte distribution width (RBC) [Ratio] 19.4 % High 11.5-15.0 [facility] Comment on above: Performed By: #### L [id number] ####[employer]: VASHTI BAILEY ([id number])[facility])[address] [place] [address] Hematocrit (Bld) [Volume fraction] 24.3 % Low 35.0-47.0 [facility] Comment on above: Performed By: #### L [id number] ####[employer] Layer: VASHTI BAILEY ([id number])[facility])[address] [place] [address] Hemoglobin (Bld) [Mass/Vol] 7.7 g/dL Low 11.7-16.0 [facility] Comment on above: Performed By: #### L [id number] ####[employer] Layer: VASHTI BAILEY ([id number])[facility])[address] [place] [address] MCH (RBC) [Entitic mass] 27.5 pg Normal 26.0-34.0 [facility] Comment on above: Performed By: #### L [id number] ####V[employer] Stock Layer: VASHTI BAILEY ([id number])[facility])[address] [place] [address] MCHC 31.7 % Normal 30.5-36.0 [facility] Comment on above: Performed By: #### L [id number] ####[employer] Layer: VASHTI BAILEY ([id number])[facility])[address] [place] [address] MCV (RBC) [Entitic vol] 86.8 fL Normal 77.0-99.0 [facility] Comment on above: Performed By: #### L [id number] ####[employer] Stock Layer: VASHTI BAILEY ([id number])[facility])[address] [place] [address] Platelet mean volume (Bld) [Entitic vol] 10.0 fL Normal 9.0-12.7 [facility] Comment on above: Performed By: #### L [id number] ####V[employer]er Stock Layer: VASHTI BAILEY ([id number])[facility] [place] [address] Platelets (Bld) [#/Vol] 190 10*3/uL Normal 140-440 [facility] Comment on above: Performed By: #### L [id number] ####V[employer] Stock Layer: VASHTI BAILEY ([id number])[facility])[address] [place] [address] RBC (Bld) [#/Vol] 2.80 10*6/uL Low 3.80-5.20 [facility] Comment on above: Performed By: #### L [id number] ####[employer] Layer: VASHTI BAILEY ([id number])[facility])[address] [place] [address] WBC (Bld) [#/Vol] 7.8 10*3/uL Normal 3.6-10.7 [facility] Comment on above: Performed By: #### L [id number] ####[employer] Layer: VASHTI BAILEY ([id number])[facility] [place] [address] CBC panel Auto (Bld)on 07-06 Erythrocyte distribution width (RBC) [Ratio] 19.4 % High 11.5 - 15.0 % [facility] Hematocrit (Bld) [Volume fraction] 24.3 % Low 35.0 - 47.0 % [facility] Hemoglobin (Bld) [Mass/Vol] 7.7 g/dL Low 11.7 - 16.0 g/dL [facility] Interpretation and review of laboratory results Abnormal [facility] MCH (RBC) [Entitic mass] 27.5 pg 26.0 - 34.0 pg [facility] MCHC (RBC) [Mass/Vol] 31.7 % 30.5 - 36.0 % [facility] MCV (RBC) [Entitic vol] 86.8 fL 77.0 - 99.0 fL [facility] Platelet mean volume (Bld) [Entitic vol] 10 fL 9.0 - 12.7 fL [facility] Platelets (Bld) [#/Vol] 190 10*3/uL 140 - 440 10*3/uL [facility] RBC (Bld) [#/Vol] 2.8 10*6/uL Low 3.80 - 5.2 0 10*6/uL [facility] WBC (Bld) [#/Vol] 7.8 10*3/uL 3.6 - 10.7 10*3/uL [facility] Laboratory - Chemistry and C hemistry - challengeOrdered By: Holly Brown on 07-06-2025 Albumin [Mass/Vol] 2.6 g/dL Low 3.4 - 4.8 g/dL [facility] Anion gap [Moles/Vol] 10 mmol/L 3 - 13 mmol/L [facility] Calcium [Mass/Vol] 9.3 mg/dL 8.8 - 10. 0 mg/dL [facility] Chloride [Moles/Vol] 99 mmol/L 98 - 10 7 mmol/L [facility] CO2 [Moles/Vol] 27 mmol/L 23 - 31 mmol/L [facility] Creatinine [Mass/Vol] 3.36 mg/dL High 0.57 - 1.11 mg/dL [facility] GFR/1.73 sq M.predicted (S/P/Bld) [Vol rate/Area] 13.6 mL/min Low - PINF [facility] Comment on above: Calculation based on the Chronic Kidney Disease Epidemiology Collaboration (CKD-EPI) equation refit without adjustment for race Glucose [Mass/Vol] 89 mg/dL 82 - 115 mg/dL [facility] Phosphate [Mass/Vol] 3.3 mg/dL 2.3 - 4 .7 mg/dL [facility] Potassium [Moles/Vol] 4 mmol/L 3.5 - 5.1 mmol/L [facility] Comment on above: Plasma potassium andrae ues may be up to 0.5 mmol/L lower than serum values. Sodium [Moles/Vol] 136 mmol/L 136 - 145 mmol/L [facility] Urea nitrogen [Mass/Vol] 64 mg/dL High 9 - 23 mg/dL [facility] No Panel InformationOrdered By: Holly Brown on 07-06-2025 Interpretation and review of laboratory results Abnormal [facility] Nursing Noteon 07-06-2025 Nursing Note Normal [facility] Nursing Note Pt is confused at baseline , pt is from a SNF pt has son who cares for her as well. Normal [facility] Nursing Note Normal [facility] Progress Noteon 07-06-2025 Progress Note Normal [facility] Progress Note Normal [facility] RENAL FUNCTION PANELon 07-06 Albumin [Mass/Vol] 2.6 g/dL Low 3.4-4.8 [facility] Comment on above: Performed By: #### L [id number] ####[employer] Layer: VASHTI BAILEY ([id number])[facility] [place] [address] Anion gap [Moles/Vol] 10 mmol/L Normal 3-13 [facility] Comment on above: Performed By: #### L [id number] ####[employer] Stock Layer: VASHTI BAILEY ([id number])[facility])[address] [place] [address] Calcium [Mass/Vol] 9.3 mg/dL Normal 8.8-10.0 [facility] Comment on above: Performed By: #### L [id number] ####[employer] Stock Layer: VASHTI BAILEY ([id number])[facility])[address] [place] [address] [place] Chloride [Moles/Vol] 99 mmol/L Normal 98-107 [facility] Comment on above: Performed By: #### L [id number] ####V[employer] Stock Layer: VASHTI BAILEY ([id number])[facility])[address] [place] [address] [place] CO2 [Moles/Vol] 27 mmol/L Normal 23-[address] [facility] Comment on above: Performed By: #### L [id number] ####V[employer] Stock Layer: VASHTI BAILEY ([id number])[facility] [place] [address] [place] Creatinine [Mass/Vol] 3.36 mg/dL High 0.57-1.11 [facility] Comment on above: Performed By: #### L [id number] ####[employer] Layer: VASHTI BAILEY ([id number])[facility])[address] [place] [address] GLOMERULAR FILTRATION RATE ML/MIN/1.73 SQ M.PREDICTED 13.6 mL/min/1.73m*2 Low >60.0 [facility] Comment on above: Result Comment: Calc ulation based on the Chronic Kidney Disease Epidemiology Collaboration (CKD-EPI) equation refit without adjustment for race Performed By: #### L [id number] ####V[employer] Layer: VASHTI BAILEY ([id number])[facility])[address] [place] [address] Glucose [Mass/Vol] 89 mg/dL Normal 82-115 [facility] Comment on above: Performed By: #### L [id number] ####V[employer] Stock Layer: VASHTI BAILEY ([id number])[facility])[address] [place] [address] Phosphate [Mass/Vol] 3.3 mg/dL Normal 2.3-4.7 [facility] Comment on above: Performed By: #### L [id number] ####V[employer] Stock Layer: VASHTI BAILEY ([id number])[facility])[address] [place] [address] Potassium [Moles/Vol] 4.0 mmol/L Normal 3.5-5.1 [facility] Comment on above: Result Comment: [facility] potassium values may be up to 0.5 mmol/L lower than serum values. Performed By: #### L [id number] ####[employer] Layer: VASHTI BAILEY ([id number])[facility])[address] [place] [address] [place] Sodium [Moles/Vol] 136 mmol/L Normal 136-145 [facility] Comment on above: Performed By: #### L [id number] ####V[employer]er Stock Layer: VASHTI BAILEY ([id number])[facility])[address] [place] [address] [place] Urea nitrogen [Mass/Vol] 64 mg/dL High 06-19 [facility] Comment on above: Performed By: #### L [id number] ####[employer] Stock Layer: VASHTI BAILEY ([id number])[facility] ([facility])[address] [place] [address] XR CHEST 1 VIEWon 07-06-2025 XR CHEST 1 VIEW Normal [facility] XR Chest Single viewon 07-06 Moderate-sized bilateral pleural effusions. Right-sided pleural effusion is increased in size compared to 07/03/2025. Report Dictated on Electronically Signed By: Juancarlos Oneal MD Electronically Signed Date/Time: 07/06/2025 2:50 PM EDT [facility] Patient Name: ROSA MYERS : 1950 [...] tunneled dialysis catheter in unchanged position. OTHER: [facility] Lillian Oneal MD - 07/06/2025 [...] Electronically Signed Date/Time: 07/06/2025 2:50 PM EDT [facility] Radiology Study observation (narrative) [facility] alth XR Chest Single viewOrdered By: Lillian Oneal on 07-06-2025 [facility] Work Phone: [phone] 07-05-2025 [id number] Normal [facility] [id number] Normal [facility] C. DIFFICILE BY PCR WITH REF ALYSSA TO EIAon 07-05-2025 C. DIFFICILE BY PCR WITH REFLEX TO EIA Normal [facility] Comment on above: Performed By: #### L [id number], [id number] ####[employer] Layer: VASHTI BAILEY ([id number])[address] C. difficile toxin A+B tcdA+ tcdB genes PATEL+probe Ql (Stl)Ordered By: Nithya Carrasquillo on 07-05-2025 C difficile Toxins A+B, EIA Negative Negative [facility] Interpretation and review of laboratory results Normal [facility] Results indicate colonization with C. Difficile. Correlate with clinical data and/or consider other causes for symptoms. Methodology: Enzyme Immunoassay [facility] C. difficile toxin genes PATEL +probe Ql (Stl)on 07-05-2025 C. difficile toxin B tcdB gene PATEL+probe Ql (Stl) Detected Abnormal Not Detected [facility] Interpretation and review of laboratory results Abnormal [facility] This test screens fo r possible C. difficile infection. Additional testing is required and has been ordered by Laboratory. See C. difficile Toxins EIA for final results. Additional charges apply. Methodology: Real-time PCR [facility] CBC W Auto Differential pane l (Bld)on 07-05-2025 Basophils (Bld) [#/Vol] 0.1 10*3/uL 0.0 - 0.2 10*3/uL [facility] Basophils/100 WBC (Bld) 0.7 % 0.0 - 2.0 % [facility] Eosinophils (Bld) [#/Vol] 0.2 10*3/uL 0.0 - 0.5 10*3/uL [facility] Eosinophils/100 WBC (Bld) 3.1 % 0.0 - 6.0 % [facility] Erythrocyte distribution width (RBC) [Ratio] 19.6 % High 11.5 - 15.0 % [facility] Hematocrit (Bld) [Volume fraction] 23.4 % Low 35.0 - 47.0 % [facility] Hemoglobin (Bld) [Mass/Vol] 7.4 g/dL Low 11.7 - 16.0 g/dL [facility] Immature granulocytes (Bld) [#/Vol] 0.1 10*3/uL High NINF - 0.1 10*3/uL [facility] Immature granulocytes/100 WBC (Bld) 0.7 % 0.0 - 2.0 % [facility] Interpretation and review of laboratory results Abnormal [facility] Lymphocytes (Bld) [#/Vol] 0.9 10*3/uL Low 1.0 - 4.3 10*3/uL [facility] Lymphocytes/100 WBC (Bld) 13.7 % Low 15.0 - 45.0 % [facility] MCH (RBC) [Entitic mass] 27.1 pg 26.0 - 34.0 pg [facility] MCHC (RBC) [Mass/Vol] 31.6 % 30.5 - 36.0 % [facility] MCV (RBC) [Entitic vol] 85.7 fL 77.0 - 99.0 fL [facility] Monocytes (Bld) [#/Vol] 0.8 10*3/uL 0.0 - 0.9 10*3/uL [facility] Monocytes/100 WBC (Bld) 11.9 % 5.0 - 13.0 % [facility] Neutrophils (Bld) [#/Vol] 4.7 10*3/uL 1.8 - 7.5 10*3/uL [facility] Neutrophils/100 WBC (Bld) 69.9 % 38.0 - 82.0 % [facility] Nucleated RBC/100 WBC (Bld) [Ratio] 0 % [facility] Platelet mean volume (Bld) [Entitic vol] 10.3 fL 9.0 - 12.7 fL [facility] Platelets (Bld) [#/Vol] 179 10*3/uL 140 - 440 10*3/uL [facility] RBC (Bld) [#/Vol] 2.73 10*6/uL Low 3.80 - 5.2 0 10*6/uL [facility] WBC (Bld) [#/Vol] 6.8 10*3/uL 3.6 - 10.7 10*3/uL [facility] CBC WITH AUTO DIFFERENTIALon 07-05-2025 Basophils (Bld) [#/Vol] 0.1 10*3/uL Normal 0.0-0.2 [facility] Comment on above: Performed By: #### L [id number] ####[employer] Layer: VASHTI BAILEY ([id number])[facility])[address] [place] [address] Basophils/100 WBC (Bld) 0.7 % Normal 0.0-2.0 [facility] Comment on above: Performed By: #### L [id number] ####[employer] Layer: VASHTI BAILEY ([id number])[facility])[address] [place] [address] Eosinophils (Bld) [#/Vol] 0.2 10*3/uL Normal 0.0-0.5 [facility] Comment on above: Performed By: #### L [id number] ####[employer] Layer: VASHTI BAILEY ([id number])[facility])[address] [place] [address] Eosinophils/100 WBC (Bld) 3.1 % Normal 0.0-6.0 [facility] Comment on above: Performed By: #### L [id number] ####[employer] Layer: VASHTI BAILEY ([id number])[facility])[address] [place] [address] Erythrocyte distribution width (RBC) [Ratio] 19.6 % High 11.5-15.0 [facility] Comment on above: Performed By: #### L [id number] ####[employer] Layer: VASHTI BAILEY ([id number])[address] Hematocrit (Bld) [Volume fraction] 23.4 % Low 35.0-47.0 [facility] Comment on above: Performed By: #### L [id number] ####[employer] Layer: VASHTI BAILEY ([id number])[facility])[address] [place] [address] Hemoglobin (Bld) [Mass/Vol] 7.4 g/dL Low 11.7-16.0 [facility] Comment on above: Performed By: #### L [id number] ####[employer] Layer: VASHTI BAILEY ([id number])[address] IMMATURE GRANS % 0.7 % Normal 0.0-2.0 [facility] Comment on above: Performed By: #### L [id number] ####[employer] Layer: VASHTI BAILEY ([id number])[address] IMMATURE GRANS ABSOLUTE 0.1 10*3/uL High <0.1 [facility] Comment on above: Performed By: #### L [id number] ####[employer] Layer: VASHTI BAILEY ([id number])[facility])[address] [place] [address] Lymphocytes (Bld) [#/Vol] 0.9 10*3/uL Low 1.0-4.3 [facility] Comment on above: Performed By: #### L [id number] ####[employer] Layer: VASHTI BAILEY ([id number])[address] Lymphocytes/100 WBC (Bld) 13.7 % Low 15.0-45.0 [facility] Comment on above: Performed By: #### L [id number] ####V[employer] Stock Layer: VASHTI BAILEY ([id number])[facility])[address] [place] [address] MCH (RBC) [Entitic mass] 27.1 pg Normal 26.0-34.0 [facility] Comment on above: Performed By: #### L [id number] ####V[employer] Stock Layer: VASHTI BAILEY ([id number])[facility])[address] [place] [address] MCHC 31.6 % Normal 30.5-36.0 [facility] Comment on above: Performed By: #### L [id number] ####V[employer] Stock Layer: VASHTI BAILEY ([id number])[facility])[address] [place] [address] MCV (RBC) [Entitic vol] 85.7 fL Normal 77.0-99.0 [facility] Comment on above: Performed By: #### L [id number] ####V[employer] Stock Layer: VASHTI BAILEY ([id number])[facility])[address] [place] [address] Monocytes (Bld) [#/Vol] 0.8 10*3/uL Normal 0.0-0.9 [facility] Comment on above: Performed By: #### L [id number] ####[employer] Stock Layer: VASHTI BAILEY ([id number])[facility])[address] [place] [address] Monocytes/100 WBC (Bld) 11.9 % Normal 5.0-13.0 [facility] Comment on above: Performed By: #### L [id number] ####V[employer] Stock Layer: VASHTI BAILEY ([id number])[facility])[address] [place] [address] NEUTROPHILS ABSOLUTE 4.7 10*3/uL Normal 1.8-7.5 [facility] Comment on above: Performed By: #### L [id number] ####V[employer]er Stock Layer: VASHTI BAILEY ([id number])[facility])[address] [place] [address] Neutrophils/100 WBC (Bld) 69.9 % Normal 38.0-82.0 [facility] Comment on above: Performed By: #### L [id number] ####[employer] Stock Layer: VASHTI BAILEY ([id number])[facility] [place] [address] NRBC 0.0 /100 WBCs Normal 0.0-2.0 [facility] Comment on above: Performed By: #### L [id number] ####V[employer] Stock Layer: VASHTI BAILEY ([id number])[facility])[address] [place] [address] Platelet mean volume (Bld) [Entitic vol] 10.3 fL Normal 9.0-12.7 [facility] Comment on above: Performed By: #### L [id number] ####V[employer]er Stock Layer: VASHTI BAILEY ([id number])[facility])[address] [place] [address] Platelets (Bld) [#/Vol] 179 10*3/uL Normal 140-440 [facility] Comment on above: Performed By: #### L [id number] ####V[employer] Stock Layer: VASHTI BAILEY ([id number])[facility])[address] [place] [address] RBC (Bld) [#/Vol] 2.73 10*6/uL Low 3.80-5.20 [facility] Comment on above: Performed By: #### L [id number] ####[employer] Layer: VASHTI BAILEY ([id number])[facility])[address] [place] [address] WBC (Bld) [#/Vol] 6.8 10*3/uL Normal 3.6-10.7 [facility] Comment on above: Performed By: #### L [id number] ####[employer] Stock Layer: VASHTI BAILEY ([id number])[facility])[address] [place] [address] COMPREHENSIVE METABOLIC PANE Florentin 07-05-2025 Albumin [Mass/Vol] 2.5 g/dL Low 3.4-4.8 [facility] Comment on above: Performed By: #### L [id number] ####[employer] Layer: VASHTI BAILEY ([id number])[facility])[address] [place] [address] ALP [Catalytic activity/Vol] 121 U/L Normal 40-150 [facility] Comment on above: Performed By: #### L [id number] ####[employer] Layer: VASHTI BAILEY ([id number])[facility])[address] [place] [address] ALT [Catalytic activity/Vol] 21 U/L Normal <30 [facility] Comment on above: Performed By: #### L [id number] ####[employer] Layer: VASHTI BAILEY ([id number])[facility])[address] [place] [address] Anion gap [Moles/Vol] 11 mmol/L Normal 3-13 [facility] Comment on above: Performed By: #### L [id number] ####[employer] Layer: VASHTI BAILEY ([id number])[facility] [place] [address] AST [Catalytic activity/Vol] 32 U/L Normal <34 [facility] Comment on above: Performed By: #### L [id number] ####[employer] Layer: VASHTI BAILEY ([id number])[facility])[address] [place] [address] Bilirubin [Mass/Vol] 0.6 mg/dL Normal <1.2 [facility] Comment on above: Performed By: #### L [id number] ####[employer] Layer: VASHTI BAILEY ([id number])[facility])[address] [place] [address] Calcium [Mass/Vol] 9.7 mg/dL Normal 8.8-10.0 [facility] Comment on above: Performed By: #### L [id number] ####[employer] Layer: VASHTI BAILEY ([id number])[facility])[address] [place] [address] Chloride [Moles/Vol] 92 mmol/L Low 98-107 [facility] Comment on above: Performed By: #### L [id number] ####[employer] Layer: VASHTI BAILEY ([id number])[facility])[address] [place] [address] CO2 [Moles/Vol] 29 mmol/L Normal 23-[address] [facility] Comment on above: Performed By: #### L [id number] ####[employer] Layer: VASHTI BAILEY ([id number])[facility])[address] [place] [address] Creatinine [Mass/Vol] 5.26 mg/dL High 0.57-1.11 [facility] Comment on above: Performed By: #### L [id number] ####[employer] Layer: VASHTI BAILEY ([id number])[facility])[address] [place] [address] GLOMERULAR FILTRATION RATE ML/MIN/1.73 SQ M.PREDICTED 7.9 mL/min/1.73m*2 Low >60.0 [facility] Comment on above: Result Comment: Calc ulation based on the Chronic Kidney Disease Epidemiology Collaboration (CKD-EPI) equation refit without adjustment for race Performed By: #### L [id number] ####[employer]: VASHTI BAILEY ([id number])[facility])[address] [place] [address] Glucose [Mass/Vol] 97 mg/dL Normal 82-115 [facility] Comment on above: Performed By: #### L [id number] ####[employer]: VASHTI BAILEY ([id number])[facility])[address] [place] [address] Potassium [Moles/Vol] 4.2 mmol/L Normal 3.5-5.1 [facility] Comment on above: Result Comment: [facility] potassium values may be up to 0.5 mmol/L lower than serum values. Performed By: #### L [id number] ####[employer]: VASHTI BAILEY ([id number])[facility] [place] [address] Protein [Mass/Vol] 6.5 g/dL Normal 6.4-8.3 [facility] Comment on above: Performed By: #### L [id number] ####[employer]: VASHTI BAILEY ([id number])[facility])[address] [place] [address] Sodium [Moles/Vol] 132 mmol/L Low 136-145 [facility] Comment on above: Performed By: #### L [id number] ####Veneer Stock Layer: VASHTI BAILEY ([id number])[facility] [place] [address] Urea nitrogen [Mass/Vol] 125 mg/dL High 9-23 [facility] Comment on above: Performed By: #### L [id number] ####Veneer Stock Layer: VASHTI BAILEY ([id number])[facility] [place] [address] Comprehensive metabolic 1998 panelon 07-05-2025 Albumin [Mass/Vol] 2.5 g/dL Low 3.4 - 4.8 g/dL [facility] ALP [Catalytic activity/Vol] 121 U/L 40 - 150 U/L [facility] ALT [Catalytic activity/Vol] 21 U/L NINF - 30 U/L [facility] Anion gap [Moles/Vol] 11 mmol/L 3 - 13 mmol/L [facility] AST [Catalytic activity/Vol] 32 U/L NINF - 34 U/L [facility] Bilirubin [Mass/Vol] 0.6 mg/dL NINF - 1.2 mg/dL [facility] Calcium [Mass/Vol] 9.7 mg/dL 8.8 - 10. 0 mg/dL [facility] Chloride [Moles/Vol] 92 mmol/L Low 98 - 10 7 mmol/L [facility] CO2 [Moles/Vol] 29 mmol/L 23 - 31 mmol/L [facility] Creatinine [Mass/Vol] 5.26 mg/dL High 0.57 - 1.11 mg/dL [facility] GFR/1.73 sq M.predicted (S/P/Bld) [Vol rate/Area] 7.9 mL/min Low - PINF [facility] Comment on above: Calculation based on the Chronic Kidney Disease Epidemiology Collaboration (CKD-EPI) equation refit without adjustment for race Glucose [Mass/Vol] 97 mg/dL 82 - 115 mg/dL [facility] Interpretation and review of laboratory results Abnormal [facility] Potassium [Moles/Vol] 4.2 mmol/L 3.5 - 5.1 mmol/L [facility] Comment on above: Plasma potassium andrae ues may be up to 0.5 mmol/L lower than serum values. Protein [Mass/Vol] 6.5 g/dL 6.4 - 8.3 g/dL [facility] Sodium [Moles/Vol] 132 mmol/L Low 136 - 145 mmol/L [facility] Urea nitrogen [Mass/Vol] 125 mg/dL High 9 - 23 mg/dL [facility] Health Consulton 07-05-2025 Consult Normal [facility] Consult Normal [facility] LAB ONLY - C DIFF EIAon LAB ONLY - C DIFF EIA Normal [facility] Comment on above: Performed By: #### L [id number], [id number] ####Veneer Stock Layer: VASHTI BAILEY ([id number])[facility] ([facility])[address] [place] [address] Laboratory - Chemistry and C hemistry - challengeon 07-05-2025 Glucose [Mass/Vol] 140 mg/dL High 70 - 100 mg/dL [facility] Glucose [Mass/Vol] 182 mg/dL High 70 - 100 mg/dL [facility] Glucose [Mass/Vol] 131 mg/dL High 70 - 100 mg/dL [facility] Glucose [Mass/Vol] 91 mg/dL 70 - 100 mg/dL [facility] No Panel Informationon 07-05 Interpretation and review of laboratory results Abnormal [facility] Performed by: [place] [id number] CLIA ID: [id number] [facility] Interpretation and review of laboratory results Abnormal [facility] Performed by: [address] [address] CLIA ID: [id number] [facility] Interpretation and review of laboratory results Abnormal [facility] Performed by: [facility], [address] [place] [id number] CLIA ID: [id number] [facility] Interpretation and review of laboratory results Normal [facility] Performed by: [facility], [address] [facility], [facility] [address] CLIA ID: [id number] [facility] Nursing Noteon 07-05-2025 Nursing Note Patient bleeding fro m old IV site. Changed patient's gown, linens. Also rolled new pull pad under patient. No kinks in FMS. Normal [facility] Nursing Note Normal [facility] Nursing Note Normal [facility] Progress Noteon 07-05-2025 Progress [facility] Progress Note Normal [facility] CBC W Auto Differential pane l (Bld)on 07-04-2025 Basophils (Bld) [#/Vol] 0.1 10*3/uL 0.0 - 0.2 10*3/uL [facility] Basophils/100 WBC (Bld) 0.7 % 0.0 - 2.0 % [facility] Eosinophils (Bld) [#/Vol] 0.2 10*3/uL 0.0 - 0.5 10*3/uL [facility] Eosinophils/100 WBC (Bld) 2.4 % 0.0 - 6.0 % [facility] Erythrocyte distribution width (RBC) [Ratio] 19.6 % High 11.5 - 15.0 % [facility] Hematocrit (Bld) [Volume fraction] 24.7 % Low 35.0 - 47.0 % [facility] Hemoglobin (Bld) [Mass/Vol] 7.9 g/dL Low 11.7 - 16.0 g/dL [facility] Immature granulocytes (Bld) [#/Vol] 0 10*3/uL NINF - 0.1 10*3/uL [facility] Immature granulocytes/100 WBC (Bld) 0.5 % 0.0 - 2.0 % [facility] Interpretation and review of laboratory results Abnormal [facility] Lymphocytes (Bld) [#/Vol] 0.9 10*3/uL Low 1.0 - 4.3 10*3/uL [facility] Lymphocytes/100 WBC (Bld) 12.5 % Low 15.0 - 45.0 % [facility] MCH (RBC) [Entitic mass] 27.1 pg 26.0 - 34.0 pg [facility] MCHC (RBC) [Mass/Vol] 32 % 30.5 - 36.0 % [facility] MCV (RBC) [Entitic vol] 84.6 fL 77.0 - 99.0 fL [facility] Monocytes (Bld) [#/Vol] 0.8 10*3/uL 0.0 - 0.9 10*3/uL [facility] Monocytes/100 WBC (Bld) 10.3 % 5.0 - 13.0 % [facility] Neutrophils (Bld) [#/Vol] 5.4 10*3/uL 1.8 - 7.5 10*3/uL [facility] Neutrophils/100 WBC (Bld) 73.6 % 38.0 - 82.0 % [facility] Nucleated RBC/100 WBC (Bld) [Ratio] 0 % [facility] Platelet mean volume (Bld) [Entitic vol] 10 fL 9.0 - 12.7 fL [facility] Platelets (Bld) [#/Vol] 171 10*3/uL 140 - 440 10*3/uL [facility] RBC (Bld) [#/Vol] 2.92 10*6/uL Low 3.80 - 5.2 0 10*6/uL [facility] WBC (Bld) [#/Vol] 7.4 10*3/uL 3.6 - 10.7 10*3/uL [facility] CBC WITH AUTO DIFFERENTIALon 07-04-2025 Basophils (Bld) [#/Vol] 0.1 10*3/uL Normal 0.0-0.2 [facility] Comment on above: Performed By: #### L [id number] ####Veneer Stock Layer: VASHTI BAILEY ([id number])[facility] ([address] Basophils/100 WBC (Bld) 0.7 % Normal 0.0-2.0 [facility] Comment on above: Performed By: #### L [id number] ####Veneer Stock Layer: VASHTI BAILEY ([id number])[facility] [address] Eosinophils (Bld) [#/Vol] 0.2 10*3/uL Normal 0.0-0.5 [facility] Comment on above: Performed By: #### L [id number] ####Veneer Stock Layer: VASHTI BAILEY ([id number])[facility])[address] [place] [address] Eosinophils/100 WBC (Bld) 2.4 % Normal 0.0-6.0 [facility] Comment on above: Performed By: #### L [id number] ####Veneer Stock Layer: VASHTI BAILEY ([id number])[address] Erythrocyte distribution width (RBC) [Ratio] 19.6 % High 11.5-15.0 [facility] Comment on above: Performed By: #### L [id number] ####Veneer Stock Layer: VASHTI BAILEY ([id number])[facility])[address] [place] [address] Hematocrit (Bld) [Volume fraction] 24.7 % Low 35.0-47.0 [facility] Comment on above: Performed By: #### L [id number] ####Veneer Stock Layer: VASHTI BAILEY ([id number])[address] Hemoglobin (Bld) [Mass/Vol] 7.9 g/dL Low 11.7-16.0 [facility] Comment on above: Performed By: #### L [id number] ####Veneer Stock Layer: VASHTI BAILEY ([id number])[facility])[address] [place] [address] IMMATURE GRANS % 0.5 % Normal 0.0-2.0 [facility] Comment on above: Performed By: #### L [id number] ####Veneer Stock Layer: VASHTI BAILEY ([id number])[address] IMMATURE GRANS ABSOLUTE 0.0 10*3/uL Normal <0.1 [facility] Comment on above: Performed By: #### L [id number] ####Veneer Stock Layer: VASHTI BAILEY ([id number])[facility])[address] [place] [address] Lymphocytes (Bld) [#/Vol] 0.9 10*3/uL Low 1.0-4.3 [facility] Comment on above: Performed By: #### L [id number] ####Veneer Stock Layer: VASHTI BAILEY ([id number])[facility])[address] [place] [address] Lymphocytes/100 WBC (Bld) 12.5 % Low 15.0-45.0 [facility] Comment on above: Performed By: #### L [id number] ####Veneer Stock Layer: VASHTI BAILEY ([id number])[facility])[address] [place] [address] MCH (RBC) [Entitic mass] 27.1 pg Normal 26.0-34.0 [facility] Comment on above: Performed By: #### L [id number] ####Veneer Stock Layer: VASHTI BAILEY ([id number])[facility])[address] [place] [address] MCHC 32.0 % Normal 30.5-36.0 [facility] Comment on above: Performed By: #### L [id number] ####Veneer Stock Layer: VASHTI BAILEY ([id number])[facility])[address] [place] [address] MCV (RBC) [Entitic vol] 84.6 fL Normal 77.0-99.0 [facility] Comment on above: Performed By: #### L [id number] ####Veneer Stock Layer: VASHTI BAILEY ([id number])[facility])[address] [place] [address] Monocytes (Bld) [#/Vol] 0.8 10*3/uL Normal 0.0-0.9 [facility] Comment on above: Performed By: #### L [id number] ####Veneer Stock Layer: VASHTI BAILEY ([id number])[facility] [place] [address] [place] Monocytes/100 WBC (Bld) 10.3 % Normal 5.0-13.0 [facility] Comment on above: Performed By: #### L [id number] ####Veneer Stock Layer: VASHTI BAILEY ([id number])[facility])[address] [place] [address] NEUTROPHILS ABSOLUTE 5.4 10*3/uL Normal 1.8-7.5 [facility] Comment on above: Performed By: #### L [id number] ####Veneer Stock Layer: VASHTI BAILEY ([id number])[facility])[address] [place] [address] Neutrophils/100 WBC (Bld) 73.6 % Normal 38.0-82.0 [facility] Comment on above: Performed By: #### L [id number] ####Veneer Stock Layer: VASHTI BAILEY ([id number])[facility])[address] [place] [address] NRBC 0.0 /100 WBCs Normal 0.0-2.0 [facility] Comment on above: Performed By: #### L [id number] ####Veneer Stock Layer: VASHTI BAILEY ([id number])[facility])[address] [place] [address] Platelet mean volume (Bld) [Entitic vol] 10.0 fL Normal 9.0-12.7 [facility] Comment on above: Performed By: #### L [id number] ####Veneer Stock Layer: VASHTI BAILEY ([id number])[facility] ([facility])[address] [place] [address] [place] Platelets (Bld) [#/Vol] 171 10*3/uL Normal 140-440 [facility] Comment on above: Performed By: #### L [id number] ####Veneer Stock Layer: VASHTI BAILEY ([id number])[facility])[address] [place] [address] RBC (Bld) [#/Vol] 2.92 10*6/uL Low 3.80-5.20 [facility] Comment on above: Performed By: #### L [id number] ####Veneer Stock Layer: VASHTI BAILEY ([id number])[facility])[address] [place] [address] WBC (Bld) [#/Vol] 7.4 10*3/uL Normal 3.6-10.7 [facility] Comment on above: Performed By: #### L [id number] ####Veneer Stock Layer: VASHTI BAILEY ([id number])[facility])[address] [place] [address] COMPREHENSIVE METABOLIC PANE Florentin 07-04-2025 Albumin [Mass/Vol] 2.5 g/dL Low 3.4-4.8 [facility] Comment on above: Performed By: #### L [id number], [id number] ####Veneer Stock Layer: VASHTI BAILEY ([id number])[facility])[address] [place] [address] ALP [Catalytic activity/Vol] 134 U/L Normal 40-150 [facility] Comment on above: Performed By: #### L [id number], [id number] ####Veneer Stock Layer: VASHTI BAILEY ([id number])[facility])[address] [place] [address] ALT [Catalytic activity/Vol] 36 U/L High <30 [facility] Comment on above: Performed By: #### L [id number], [id number] ####Veneer Stock Layer: VASHTI BAILEY ([id number])[facility])[address] [place] [address] Anion gap [Moles/Vol] 12 mmol/L Normal 3-13 [facility] Comment on above: Performed By: #### L [id number], LAB17 ####Veneer Stock Layer: VASHTI BAILEY ([id number])[facility])[address] [place] [address] AST [Catalytic activity/Vol] 40 U/L High <34 [facility] Comment on above: Performed By: #### L [id number], LAB17 ####Veneer Stock Layer: VASHTI BAILEY ([id number])[facility])[address] [place] [address] Bilirubin [Mass/Vol] 0.6 mg/dL Normal <1.2 [facility] Comment on above: Performed By: #### L [id number], LAB17 ####Veneer Stock Layer: VASHTI BAILEY ([id number])[facility])[address] [place] [address] Calcium [Mass/Vol] 9.9 mg/dL Normal 8.8-10.0 [facility] Comment on above: Performed By: #### L [id number], LAB17 ####Veneer Stock Layer: VASHTI BAILEY ([id number])[facility])[address] [place] [address] Chloride [Moles/Vol] 91 mmol/L Low 98-107 [facility] Comment on above: Performed By: #### L [id number], LAB17 ####Veneer Stock Layer: VASHTI BAILEY ([id number])[facility])[address] [place] [address] CO2 [Moles/Vol] 29 mmol/L Normal 23-31 [facility] Comment on above: Performed By: #### L [id number], LAB17 ####Veneer Stock Layer: VASHTI BAILEY ([id number])[facility])[address] [place] [address] Creatinine [Mass/Vol] 4.92 mg/dL High 0.57-1.11 [facility] Comment on above: Performed By: #### L [id number], LAB17 ####Veneer Stock Layer: VASHTI BAILEY ([id number])[facility])[address] [place] [address] GLOMERULAR FILTRATION RATE ML/MIN/1.73 SQ M.PREDICTED 8.6 mL/min/1.73m*2 Low >60.0 [facility] Comment on above: Result Comment: Calc ulation based on the Chronic Kidney Disease Epidemiology Collaboration (CKD-EPI) equation refit without adjustment for race Performed By: #### L MARC, [id number] ####Veneer Stock Layer: VASHTI BAILEY ([id number])[facility])[address] [place] [address] Glucose [Mass/Vol] 125 mg/dL High 82-115 [facility] Comment on above: Performed By: #### L [id number], LAB17 ####Veneer Stock Layer: VASHTI BAILEY ([id number])[facility])[address] [place] [address] Potassium [Moles/Vol] 4.7 mmol/L Normal 3.5-5.1 [facility] Comment on above: Result Comment: [facility] potassium values may be up to 0.5 mmol/L lower than serum values. Performed By: #### L MARC, LAB17 ####Veneer Stock Layer: VASHTI BAILEY ([id number])[facility])[address] [place] [address] Protein [Mass/Vol] 6.7 g/dL Normal 6.4-8.3 [facility] Comment on above: Performed By: #### L 106, LAB17 ####Veneer Stock Layer: VASHTI BAILEY ([id number])[facility])[address] [place] [address] Sodium [Moles/Vol] 132 mmol/L Low 136-145 [facility] Comment on above: Performed By: #### L [id number], [id number] ####Veneer Stock Layer: VASHTI BAILEY ([id number])[facility])[address] [place] [address] [place] Urea nitrogen [Mass/Vol] 106 mg/dL High 9-23 [facility] Comment on above: Performed By: #### L [id number], [id number] ####Veneer Stock Layer: VASHTI BAILEY ([id number])[facility])[address] [place] [address] Comprehensive metabolic 1998 panelon 07-04-2025 Albumin [Mass/Vol] 2.5 g/dL Low 3.4 - 4.8 g/dL [facility] ALP [Catalytic activity/Vol] 134 U/L 40 - 150 U/L [facility] ALT [Catalytic activity/Vol] 36 U/L High NINF - 30 U/L [facility] Anion gap [Moles/Vol] 12 mmol/L 3 - 13 mmol/L [facility] AST [Catalytic activity/Vol] 40 U/L High NINF - 34 U/L [facility] Bilirubin [Mass/Vol] 0.6 mg/dL NINF - 1.2 mg/dL [facility] Calcium [Mass/Vol] 9.9 mg/dL 8.8 - 10. 0 mg/dL [facility] Chloride [Moles/Vol] 91 mmol/L Low 98 - 10 7 mmol/L [facility] CO2 [Moles/Vol] 29 mmol/L 23 - 31 mmol/L [facility] Creatinine [Mass/Vol] 4.92 mg/dL High 0.57 - 1.11 mg/dL [facility] GFR/1.73 sq M.predicted (S/P/Bld) [Vol rate/Area] 8.6 mL/min Low - PINF [facility] Comment on above: Calculation based on the Chronic Kidney Disease Epidemiology Collaboration (CKD-EPI) equation refit without adjustment for race Glucose [Mass/Vol] 125 mg/dL High 82 - 115 mg/dL [facility] Interpretation and review of laboratory results Abnormal [facility] Potassium [Moles/Vol] 4.7 mmol/L 3.5 - 5.1 mmol/L [facility] Comment on above: Plasma potassium andrae ues may be up to 0.5 mmol/L lower than serum values. Protein [Mass/Vol] 6.7 g/dL 6.4 - 8.3 g/dL [facility] Sodium [Moles/Vol] 132 mmol/L Low 136 - 145 mmol/L [facility] Urea nitrogen [Mass/Vol] 106 mg/dL High 9 - 23 mg/dL [facility] ED Nursing Noteon 07-04-2025 ED Nursing Note Report given to RYNE Browning on T2 ICU Normal [facility] ED Nursing Note Patient incontinent of stool. Cleaned and repositioned to her R side with wedges. Normal [facility] ED Nursing Note Kangaroo pump requested as well as PEG nutrition Normal [facility] ED Provider Noteon ED Provider Note Normal [facility] Guidance for exchange of non -tunneled [...] Electronically Signed Date/Time: 07/04/2025 3:20 PM EDT [facility] Patient Name: ROSA MYERS : 1950 [...] clinical history: None Complications: No immediate complications. [facility] Yamil Newby MD - 07/04/2025 [...] Electronically Signed Date/Time: 07/04/2025 3:20 PM EDT [facility] Radiology Study observation (narrative) [facility] betty Guidance for exchange of non -tunneled CV catheter of ChestOrdered By: Yamil Newby on 07-04-2025 [facility] Work Phone: HBV surface Ab IA Qnon 07-04 Interpretation: <8.0 Non-Reactive 8.0-11.9 Equivocal >= 12.0 Ab Detected Note: If an equivocal result is interpreted, an antibody status is unable to be determined. Collect new specimen if clinically indicated. [facility] HBV surface Ag IA Qlon 07-04 Interpretation and review of laboratory results Normal [facility] HEMOGLOBIN A1Con 07-04-2025 Glucose [Mass/Vol] 114 mg/dL Normal [facility] Comment on above: Result Comment: DORIAN Knight COMMENTS:If not done within the last 3 [id number] values of 5.7-6.4 percent indicate an increased risk for developing diabetes mellitus. HbA1c values greater than or equal to 6.5 percent are diagnostic of diabetes mellitus. For diagnosis of diabetes in individuals without unequivocal hyperglycemia, results should be confirmed by repeat testing. Performed By: #### L [id number] ####[employer]er [employer] Layer: VASHTI BAILEY ([id number])[facility])[address] [place] [address] HEMOGLOBIN A1C 5.6 %HbA1C Normal <5.7 [facility] Comment on above: Result Comment: Norm al less than 5.7%Prediabetes 5.7% to 6.4%Diabetes 6.5% or higher--HgbA1C levels may not be accurate in patients who have renal disease, received recent blood transfusions, are anemic, or who have dyshemoglobinemia. Performed By: #### L [id number] ####Veneer Stock Layer: VASHTI BAILEY ([id number])[facility])[address] [place] [address] HEPATITIS B SURFACE ANTIBODY on 07-04-2025 HEPATITIS B VIRUS SURFACE AB <8.0 Normal [facility] Comment on above: Result Comment: DORIAN Knight COMMENTS:Interpretation:<8.0 Non-Reactive8.0-11.9 Equivocal>= 12.0 Ab DetectedNote: If an equivocal result is interpreted, an antibody status is unable to be determined. Collect new specimen if clinically indicated. Performed By: #### L [id number], [id number] ####[employer]eneer Stock Layer: VASHTI BAILEY ([id number])[facility] [employer] [facility] [employer] [place] [address] HEPATITIS B SURFACE ANTIGENo n 07-04-2025 HEPATITIS B VIRUS SURFACE AG Not detected Normal Not Detected [facility] Comment on above: Performed By: #### L [id number], [id number] ####Veneer Stock Layer: VASHTI BAILEY ([id number])[facility])[address] [place] [address] Laboratory - Chemistry and C hemistry - challengeon 07-04-2025 Glucose [Mass/Vol] 137 mg/dL High 70 - 100 mg/dL [facility] Average glucose Estimated from glycated hemoglobin (Bld) [Mass/Vol] 114 mg/dL [facility] Laboratory - Hematology and Cell countson 07-04-2025 HbA1c (Bld) [Mass fraction] 5.6 % [facility] Comment on above: Normal less than 5.7 % Prediabetes 5.7% to 6.4% Diabetes 6.5% or higher --HgbA1C levels may not be accurate in patients who have renal disease, received recent blood transfusions, are anemic, or who have dyshemoglobinemia. Laboratory - Microbiology an d Antimicrobial susceptibilityon 07-04-2025 HBV surface Ab IA Qn mIU/mL [facility] HBV surface Ag IA Ql Not detected Not Detected [facility] NT PRO BNPon 07-04-2025 Natriuretic peptide B (Bld) [Mass/Vol] 37023 pg/mL High <956 [facility] Comment on above: Result [...] values. Performed By: #### L [id number], LAB17 ####Veneer Stock Layer: VASHTI BAILEY ([id number])[facility] [place] [address] Natriuretic peptide B [Mass/ Vol]Ordered By: Kellee Savage on 07-04-2025 Interpretation and review of laboratory results Abnormal [facility] Natriuretic peptide B (Bld) [Mass/Vol] 76947 pg/mL High [facility] - 956 pg/mL [facility] In patients with suspected acute HF, [...] may not correlate well with previous values. [facility] No Panel Informationon 07-04 Interpretation and review of laboratory results Abnormal [facility] Performed by: [facility], [address] [place] [address] CLIA ID: [id number] [facility] HbA1c values of 5.7-6.4 percent indicate an increased risk for developing diabetes mellitus. HbA1c values greater than or equal to 6.5 percent are diagnostic of diabetes mellitus. For diagnosis of diabetes in individuals without unequivocal hyperglycemia, results should be confirmed by repeat testing. [facility] Nursing Noteon 07-04-2025 Nursing Note Pt transported to ER 37 with RT. PLANNING MANAGEMENT IT SPECIALIST aware of arrival Normal [facility] Nursing Note Normal [facility] Nursing Note Tunneled hd cath removed. Normal [facility] Nursing Note Normal [facility] Nursing Note Unable to place IV - charge weigher notified. 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 RT Tamar was at bedside and switched pt from physicians transport vent to [facility] Normal [facility] Progress Noteon 07-04-2025 Progress Note Normal [facility] CBC W Auto Differential pane l (Bld)on 07-03-2025 Basophils (Bld) [#/Vol] 0 10*3/uL 0.0 - 0.2 10*3/uL [facility] Basophils/100 WBC (Bld) 0.4 % 0.0 - 2.0 % [facility] Eosinophils (Bld) [#/Vol] 0.2 10*3/uL 0.0 - 0.5 10*3/uL [facility] Eosinophils/100 WBC (Bld) 2 % 0.0 - 6.0 % [facility] Erythrocyte distribution width (RBC) [Ratio] 19.6 % High 11.5 - 15.0 % [facility] Hematocrit (Bld) [Volume fraction] 25.1 % Low 35.0 - 47.0 % [facility] Hemoglobin (Bld) [Mass/Vol] 8 g/dL Low 11.7 - 16.0 g/dL [facility] Immature granulocytes (Bld) [#/Vol] 0.1 10*3/uL High NINF - 0.1 10*3/uL [facility] Immature granulocytes/100 WBC (Bld) 0.8 % 0.0 - 2.0 % [facility] Interpretation and review of laboratory results Abnormal [facility] Lymphocytes (Bld) [#/Vol] 0.8 10*3/uL Low 1.0 - 4.3 10*3/uL [facility] Lymphocytes/100 WBC (Bld) 11.3 % Low 15.0 - 45.0 % [facility] MCH (RBC) [Entitic mass] 27.2 pg 26.0 - 34.0 pg [facility] MCHC (RBC) [Mass/Vol] 31.9 % 30.5 - 36.0 % [facility] MCV (RBC) [Entitic vol] 85.4 fL 77.0 - 99.0 fL [facility] Monocytes (Bld) [#/Vol] 0.9 10*3/uL 0.0 - 0.9 10*3/uL [facility] Monocytes/100 WBC (Bld) 11.7 % 5.0 - 13.0 % [facility] Neutrophils (Bld) [#/Vol] 5.4 10*3/uL 1.8 - 7.5 10*3/uL [facility] Neutrophils/100 WBC (Bld) 73.8 % 38.0 - 82.0 % [facility] Nucleated RBC/100 WBC (Bld) [Ratio] 0 % [facility] Platelet mean volume (Bld) [Entitic vol] 10 fL 9.0 - 12.7 fL [facility] Platelets (Bld) [#/Vol] 197 10*3/uL 140 - 440 10*3/uL [facility] RBC (Bld) [#/Vol] 2.94 10*6/uL Low 3.80 - 5.2 0 10*6/uL [facility] WBC (Bld) [#/Vol] 7.3 10*3/uL 3.6 - 10.7 10*3/uL [facility] CBC WITH AUTO DIFFERENTIALon 07-03-2025 Basophils (Bld) [#/Vol] 0.0 10*3/uL Normal 0.0-0.2 [facility] Comment on above: Performed By: #### L [id number] ####[employer]er Stock Layer: VASHTI BAILEY ([id number])[facility] [place] [address] Basophils/100 WBC (Bld) 0.4 % Normal 0.0-2.0 S [facility] Comment on above: Performed By: #### L [id number] ####[employer]er Stock Layer: VASHTI BAILEY ([id number])[facility])[address] [place] [address] [place] Eosinophils (Bld) [#/Vol] 0.2 10*3/uL Normal 0.0-0.5 [facility] Comment on above: Performed By: #### L [id number] ####[employer] Stock Layer: VASHTI BAILEY ([id number])[facility])[address] [place] [address] [place] Eosinophils/100 WBC (Bld) 2.0 % Normal 0.0-6.0 [facility] Comment on above: Performed By: #### L [id number] ####V[employer]er Stock Layer: VASHTI BAILEY ([id number])[facility])[address] [place] [address] [place] Erythrocyte distribution width (RBC) [Ratio] 19.6 % High 11.5-15.0 [facility] Comment on above: Performed By: #### L [id number] ####[employer] Stock Layer: VASHTI [id number])[facility])[address] [place] [address] Hematocrit (Bld) [Volume fraction] 25.1 % Low 35.0-47.0 [facility] Comment on above: Performed By: #### L [id number] ####V[employer]er Stock Layer: VASHTI BAILEY ([id number])[facility])[address] [place] [address] Hemoglobin (Bld) [Mass/Vol] 8.0 g/dL Low 11.7-16.0 [facility] Comment on above: Performed By: #### L [id number] ####V[employer]er Stock Layer: VASHTI BAILEY ([id number])[facility])[address] [place] [address] IMMATURE GRANS % 0.8 % Normal 0.0-2.0 [facility] Comment on above: Performed By: #### L [id number] ####V[employer]er Stock Layer: VASHTI BAILEY ([id number])[facility])[address] [place] [address] IMMATURE GRANS ABSOLUTE 0.1 10*3/uL High <0.1 [facility] Comment on above: Performed By: #### L [id number] ####V[employer]er Stock Layer: VASHTI BAILEY ([id number])[facility])[address] [place] [address] Lymphocytes (Bld) [#/Vol] 0.8 10*3/uL Low 1.0-4.3 [facility] Comment on above: Performed By: #### L [id number] ####V[employer]er Stock Layer: VASHTI BAILEY ([id number])[facility])[address] [place] [address] Lymphocytes/100 WBC (Bld) 11.3 % Low 15.0-45.0 [facility] Comment on above: Performed By: #### L [id number] ####V[employer]er Stock Layer: VASHTI BAILEY ([id number])[facility])[address] [place] [address] MCH (RBC) [Entitic mass] 27.2 pg Normal 26.0-34.0 [facility] Comment on above: Performed By: #### L [id number] ####Veneer Stock Layer: VASHTI BAILEY ([id number])[facility])[address] [place] [address] MCHC 31.9 % Normal 30.5-36.0 [facility] Comment on above: Performed By: #### L [id number] ####V[employer]er Stock Layer: VASHTI BAILEY ([id number])[facility])[address] [place] [address] MCV (RBC) [Entitic vol] 85.4 fL Normal 77.0-99.0 [facility] Comment on above: Performed By: #### L [id number] ####V[employer]er Stock Layer: VASHTI BAILEY ([id number])[facility])[address] [place] [address] Monocytes (Bld) [#/Vol] 0.9 10*3/uL Normal 0.0-0.9 [facility] Comment on above: Performed By: #### L [id number] ####Veneer Stock Layer: VASHTI BAILEY ([id number])[facility])[address] [place] [address] Monocytes/100 WBC (Bld) 11.7 % Normal 5.0-13.0 [facility] Comment on above: Performed By: #### L [id number] ####V[employer]er Stock Layer: VASHTI BAILEY ([id number])[facility])[address] [place] [address] NEUTROPHILS ABSOLUTE 5.4 10*3/uL Normal 1.8-7.5 [facility] Comment on above: Performed By: #### L [id number] ####Veneer Stock Layer: VASHTI BAILEY ([id number])[address] Neutrophils/100 WBC (Bld) 73.8 % Normal 38.0-82.0 [facility] Comment on above: Performed By: #### L [id number] ####V[employer]er Stock Layer: VASHTI BAILEY ([id number])[facility])[address] [place] [address] NRBC 0.0 /100 WBCs Normal 0.0-2.0 [facility] Comment on above: Performed By: #### L [id number] ####V[employer]er Stock Layer: VASHTI BAILEY ([id number])[facility])[address] [place] [address] Platelet mean volume (Bld) [Entitic vol] 10.0 fL Normal 9.0-12.7 [facility] Comment on above: Performed By: #### L [id number] ####V[employer]er Stock Layer: VASHTI BAILEY ([id number])[facility])[address] [place] [address] Platelets (Bld) [#/Vol] 197 10*3/uL Normal 140-440 [facility] Comment on above: Performed By: #### L [id number] ####V[employer]er Stock Layer: VASHTI BAILEY ([id number])[facility])[address] [place] [address] RBC (Bld) [#/Vol] 2.94 10*6/uL Low 3.80-5.20 [facility] Comment on above: Performed By: #### L [id number] ####V[employer] Stock Layer: VASHTI BAILEY ([id number])[facility])[address] [place] [address] WBC (Bld) [#/Vol] 7.3 10*3/uL Normal 3.6-10.7 [facility] Comment on above: Performed By: #### L [id number] ####V[employer]er Stock Layer: VASHTI BAILEY ([id number])[facility])[address] [place] [address] COMPREHENSIVE METABOLIC PANE Florentin 07-03-2025 Albumin [Mass/Vol] 2.5 g/dL Low 3.4-4.8 [facility] Comment on above: Performed By: #### L [id number], [id number] ####[employer] Stock Layer: VASHTI BAILEY ([id number])[facility] [place] [address] [place] ALP [Catalytic activity/Vol] 135 U/L Normal 40-150 [facility] Comment on above: Performed By: #### L [id number], [id number] ####[employer] Stock Layer: VASHTI BAILEY ([id number])[facility] [place] [address] [place] ALT [Catalytic activity/Vol] 25 U/L Normal <30 [facility] Comment on above: Performed By: #### L [id number], [id number] ####V[employer]er Stock Layer: VASHTI BAILEY ([id number])[facility])[address] [place] [address] Anion gap [Moles/Vol] 12 mmol/L Normal 3-13 [facility] Comment on above: Performed By: #### L [id number], [id number] ####[employer] Stock Layer: VASHTI BAILEY ([id number])[facility] [place] [address] AST [Catalytic activity/Vol] 39 U/L High <34 [facility] Comment on above: Performed By: #### L [id number], [id number] ####V[employer]er Stock Layer: VASHTI BAILEY ([id number])[facility])[address] [place] [address] Bilirubin [Mass/Vol] 0.5 mg/dL Normal <1.2 [facility] Comment on above: Performed By: #### L [id number], [id number] ####V[employer]er Stock Layer: VASHTI BAILEY ([id number])[facility])[address] [place] [address] [place] Calcium [Mass/Vol] 10.1 mg/dL High 8.8-10.0 [facility] Comment on above: Performed By: #### L [id number], [id number] ####V[employer]er Stock Layer: VASHTI BAILEY ([id number])[facility])[address] [place] [address] [place] Chloride [Moles/Vol] 92 mmol/L Low 98-107 [facility] Comment on above: Performed By: #### L [id number], [id number] ####Veneer Stock Layer: VASHTI BAILEY ([id number])[facility])[address] [place] [address] CO2 [Moles/Vol] 30 mmol/L Normal 23-[address] [facility] Comment on above: Performed By: #### L [id number], [id number] ####V[employer]er Stock Layer: VASHTI BAILEY ([id number])[facility])[address] [place] [address] Creatinine [Mass/Vol] 4.14 mg/dL High 0.57-1.11 [facility] Comment on above: Performed By: #### L [id number], [id number] ####V[employer]er Stock Layer: VASHTI BAILEY ([id number])[facility])[address] [place] [address] GLOMERULAR FILTRATION RATE ML/MIN/1.73 SQ M.PREDICTED 10.6 mL/min/1.73m*2 Low >60.0 [facility] Comment on above: Result Comment: Calc ulation based on the Chronic Kidney Disease Epidemiology Collaboration (CKD-EPI) equation refit without adjustment for race Performed By: #### L [id number], [id number] ####Veneer Stock Layer: VASHTI BAILEY ([id number])[facility])[address] [place] [address] Glucose [Mass/Vol] 118 mg/dL High 82-115 [facility] Comment on above: Performed By: #### L [id number], [id number] ####Veneer Stock Layer: VASHTI BAILEY ([id number])[facility])[address] [place] [address] [place] Potassium [Moles/Vol] 3.9 mmol/L Normal 3.5-5.1 [facility] Comment on above: Result Comment: [facility] potassium values may be up to 0.5 mmol/L lower than serum values. Performed By: #### L [id number], [id number] ####Veneer Stock Layer: VASHTI BAILEY ([id number])[facility] [place] [address] Protein [Mass/Vol] 6.8 g/dL Normal 6.4-8.3 [facility] Comment on above: Performed By: #### L [id number], [id number] ####V[employer]er Stock Layer: VASHTI BAILEY ([id number])[facility])[address] [place] [address] Sodium [Moles/Vol] 134 mmol/L Low 136-145 [facility] Comment on above: Performed By: #### L [id number], [id number] ####V[employer]er Stock Layer: VASHTI BAILEY ([id number])[facility])[address] [place] [address] Urea nitrogen [Mass/Vol] 88 mg/dL High 9-23 [facility] Comment on above: Performed By: #### L [id number], [id number] ####V[employer]er Stock Layer: VASHTI BAILEY ([id number])[facility])[address] [place] [address] Comprehensive metabolic 1998 panelon 07-03-2025 Albumin [Mass/Vol] 2.5 g/dL Low 3.4 - 4.8 g/dL [facility] ALP [Catalytic activity/Vol] 135 U/L 40 - 150 U/L [facility] ALT [Catalytic activity/Vol] 25 U/L NINF - 30 U/L [facility] Anion gap [Moles/Vol] 12 mmol/L 3 - 13 mmol/L [facility] AST [Catalytic activity/Vol] 39 U/L High NINF - 34 U/L [facility] Bilirubin [Mass/Vol] 0.5 mg/dL NINF - 1.2 mg/dL [facility] Calcium [Mass/Vol] 10.1 mg/dL High 8.8 - 10. 0 mg/dL [facility] Chloride [Moles/Vol] 92 mmol/L Low 98 - 10 7 mmol/L [facility] CO2 [Moles/Vol] 30 mmol/L 23 - 31 mmol/L [facility] Creatinine [Mass/Vol] 4.14 mg/dL High 0.57 - 1.11 mg/dL [facility] GFR/1.73 sq M.predicted (S/P/Bld) [Vol rate/Area] 10.6 mL/min Low - PINF [facility] Comment on above: Calculation based on the Chronic Kidney Disease Epidemiology Collaboration (CKD-EPI) equation refit without adjustment for race Glucose [Mass/Vol] 118 mg/dL High 82 - 115 mg/dL [facility] Interpretation and review of laboratory results Abnormal [facility] Potassium [Moles/Vol] 3.9 mmol/L 3.5 - 5.1 mmol/L [facility] Comment on above: Plasma potassium andrae ues may be up to 0.5 mmol/L lower than serum values. Protein [Mass/Vol] 6.8 g/dL 6.4 - 8.3 g/dL [facility] Sodium [Moles/Vol] 134 mmol/L Low 136 - 145 mmol/L [facility] Urea nitrogen [Mass/Vol] 88 mg/dL High 9 - 23 mg/dL [facility] ECG 12-LEADon 07-03-2025 ECG 12-LEAD IMPRESSION: Sinus rhythm Atrial premature complexes Left bundle branch block No change compared to previous ekg Electronically Signed On 07-03-2025 13:49:02 EDT by Gerardo Felder Normal [facility] ED Provider Noteon ED Provider Note Normal [facility] Laboratory - Chemistry and C hemistry - challengeon 07-03-2025 Magnesium [Mass/Vol] 2.6 mg/dL 1.6 - 2 .6 mg/dL [facility] MAGNESIUMon 07-03-2025 Magnesium [Mass/Vol] 2.6 mg/dL Normal 1.6-2.6 [facility] Comment on above: Result Comment: DORIAN Knight COMMENTS:Higher values can be expected in females during menses. Performed By: #### L [id number], [id number] ####Veneer Stock Layer: VASHTI BAILEY ([id number])[facility] ([address] Magnesium [Mass/Vol]on 07-03 Interpretation and review of laboratory results Normal [facility] Higher values can be expected in females during menses. [facility] No Panel Informationon 07-03 [facility] P [place] -1 degrees [facility] UT Interval 175 ms [facility] QRS [place] -15 degrees [facility] QRSD Interval 177 ms [facility] QT Interval 516 ms [facility] QTC Interval 539 ms [facility] T Wave [place] 182 degrees [facility] Sinus rhythm Atrial premature complexes Left bundle branch block No change compared to previous ekg Electronically Signed On 07-03-2025 13:49:02 EDT by Gerardo Felder Gerardo Greenberg M D - 07/03/2025 IMPRESSION: Sinus rhythm Atrial premature complexes Left bundle branch block No change compared to previous ekg Electronically Signed On 07-03-2025 13:49:02 EDT by Gerardo Alexandrechana [facility] Vital signson 07-03-2025 Heart rate 68 /min bpm [facility] XR Chest Single viewon 07-03 FINDINGS/IMPRESSION: [...] Electronically Signed Date/Time: 07/03/2025 2:48 PM EDT [facility] Patient Name: ROSA MYERS : 1950 Exam Date/Time: 07/03/2025 14:28 Procedure: XR CHEST 1 VIEW Ordering Provider: REDD JUSTIN Reason For Exam: dialysis port concerns CHEST - PORTABLE: CLINICAL INDICATION: dialysis port concerns TECHNIQUE: Portable AP COMPARISON: 06/08/2025. [facility] Amaris Slade MD - 07/03/2025 Patient [...] Electronically Signed Date/Time: 07/03/2025 2:48 PM EDT [facility] SCVNGR Radiology Study observation (narrative) [facility] XR Chest Single viewOrdered By: Amaris Slade on 07-03-2025 [facility] Work Phone: CBC W Auto Differential pane l (Bld)on 07-02-2025 Basophils (Bld) [#/Vol] 0.1 10*3/uL 0.0 - 0.2 10*3/uL [facility] Basophils/100 WBC (Bld) 0.7 % 0.0 - 2.0 % [facility] Eosinophils (Bld) [#/Vol] 0.2 10*3/uL 0.0 - 0.5 10*3/uL [facility] Eosinophils/100 WBC (Bld) 2.2 % 0.0 - 6.0 % [facility] Erythrocyte distribution width (RBC) [Ratio] 19.7 % High 11.5 - 15.0 % [facility] Hematocrit (Bld) [Volume fraction] 25.5 % Low 35.0 - 47.0 % [facility] Hemoglobin (Bld) [Mass/Vol] 8.2 g/dL Low 11.7 - 16.0 g/dL [facility] Immature granulocytes (Bld) [#/Vol] 0.1 10*3/uL High NINF - 0.1 10*3/uL [facility] Immature granulocytes/100 WBC (Bld) 0.9 % 0.0 - 2.0 % [facility] Interpretation and review of laboratory results Abnormal [facility] Lymphocytes (Bld) [#/Vol] 0.9 10*3/uL Low 1.0 - 4.3 10*3/uL [facility] Lymphocytes/100 WBC (Bld) 12.7 % Low 15.0 - 45.0 % [facility] MCH (RBC) [Entitic mass] 27.3 pg 26.0 - 34.0 pg [facility] MCHC (RBC) [Mass/Vol] 32.2 % 30.5 - 36.0 % [facility] MCV (RBC) [Entitic vol] 85 fL 77.0 - 99.0 fL [facility] Monocytes (Bld) [#/Vol] 0.9 10*3/uL 0.0 - 0.9 10*3/uL [facility] Monocytes/100 WBC (Bld) 12.9 % 5.0 - 13.0 % [facility] Neutrophils (Bld) [#/Vol] 4.8 10*3/uL 1.8 - 7.5 10*3/uL [facility] Neutrophils/100 WBC (Bld) 70.6 % 38.0 - 82.0 % [facility] Nucleated RBC/100 WBC (Bld) [Ratio] 0 % [facility] Platelet mean volume (Bld) [Entitic vol] 10 fL 9.0 - 12.7 fL [facility] Platelets (Bld) [#/Vol] 196 10*3/uL 140 - 440 10*3/uL [facility] RBC (Bld) [#/Vol] 3 10*6/uL Low 3.80 - 5.2 0 10*6/uL [facility] WBC (Bld) [#/Vol] 6.8 10*3/uL 3.6 - 10.7 10*3/uL [facility] CBC WITH AUTO DIFFERENTIALon 07-02-2025 Basophils (Bld) [#/Vol] 0.1 10*3/uL Normal 0.0-0.2 [facility] Comment on above: Performed By: #### L [id number] ####[employer]er [employer] Layer: VASHTI BAILEY ([id number])[facility])[address] [place] [address] Basophils/100 WBC (Bld) 0.7 % Normal 0.0-2.0 [facility] Comment on above: Performed By: #### L [id number] ####V[employer]er Stock Layer: VASHTI BAILEY ([id number])[facility])[address] [place] [address] Eosinophils (Bld) [#/Vol] 0.2 10*3/uL Normal 0.0-0.5 [facility] Comment on above: Performed By: #### L [id number] ####V[employer]er Stock Layer: VASHTI BAILEY ([id number])[facility])[address] [place] [address] Eosinophils/100 WBC (Bld) 2.2 % Normal 0.0-6.0 [facility] Comment on above: Performed By: #### L [id number] ####V[employer]er Stock Layer: VASHTI BAILEY ([id number])[facility])[address] [place] [address] Erythrocyte distribution width (RBC) [Ratio] 19.7 % High 11.5-15.0 [facility] Comment on above: Performed By: #### L [id number] ####V[employer]er Stock Layer: VASHTI BAILEY ([id number])[facility])[address] [place] [address] Hematocrit (Bld) [Volume fraction] 25.5 % Low 35.0-47.0 [facility] Comment on above: Performed By: #### L [id number] ####V[employer]er Stock Layer: VASHTI BAILEY ([id number])[facility])[address] [place] [address] Hemoglobin (Bld) [Mass/Vol] 8.2 g/dL Low 11.7-16.0 [facility] Comment on above: Performed By: #### L [id number] ####V[employer]er Stock Layer: VASHTI BAILEY ([id number])[facility])[address] [place] [address] IMMATURE GRANS % 0.9 % Normal 0.0-2.0 [facility] Comment on above: Performed By: #### L [id number] ####V[employer]er Stock Layer: VASHTI BAILEY ([id number])[facility])[address] [place] [address] IMMATURE GRANS ABSOLUTE 0.1 10*3/uL High <0.1 [facility] Comment on above: Performed By: #### L [id number] ####[employer] Layer: VASHTI BAILEY ([id number])[facility])[address] [place] [address] Lymphocytes (Bld) [#/Vol] 0.9 10*3/uL Low 1.0-4.3 [facility] Comment on above: Performed By: #### L [id number] ####[employer] Layer: VASHTI BAILEY ([id number])[facility])[address] [place] [address] Lymphocytes/100 WBC (Bld) 12.7 % Low 15.0-45.0 [facility] Comment on above: Performed By: #### L [id number] ####V[employer]er Stock Layer: VASHTI BAILEY ([id number])[facility])[address] [place] [address] MCH (RBC) [Entitic mass] 27.3 pg Normal 26.0-34.0 [facility] Comment on above: Performed By: #### L [id number] ####[employer] Stock Layer: VASHTI BAILEY ([id number])[facility])[address] [place] [address] MCHC 32.2 % Normal 30.5-36.0 [facility] Comment on above: Performed By: #### L [id number] ####V[employer]er Stock Layer: VASHTI BAILEY ([id number])[facility])[address] [place] [address] MCV (RBC) [Entitic vol] 85.0 fL Normal 77.0-99.0 [facility] Comment on above: Performed By: #### L [id number] ####[employer]er Stock Layer: VASHTI BAILEY ([id number])[facility])[address] [place] [address] Monocytes (Bld) [#/Vol] 0.9 10*3/uL Normal 0.0-0.9 [facility] Comment on above: Performed By: #### L [id number] ####[employer]er [employer] Layer: VASHTI BAIELY ([id number])[facility] [place] [address] Monocytes/100 WBC (Bld) 12.9 % Normal 5.0-13.0 [facility] Comment on above: Performed By: #### L [id number] ####V[employer] Stock Layer: VASHTI BAILEY ([id number])[facility])[address] [place] [address] NEUTROPHILS ABSOLUTE 4.8 10*3/uL Normal 1.8-7.5 [facility] Comment on above: Performed By: #### L [id number] ####V[employer] Stock Layer: VASHTI BAILEY ([id number])[facility] [place] [address] Neutrophils/100 WBC (Bld) 70.6 % Normal 38.0-82.0 [facility] Comment on above: Performed By: #### L [id number] ####V[employer] Stock Layer: VASHTI BAILEY ([id number])[facility])[address] [place] [address] NRBC 0.0 /100 WBCs Normal 0.0-2.0 [facility] Comment on above: Performed By: #### L [id number] ####V[employer]er Stock Layer: VASHTI BAILEY ([id number])[facility])[address] [place] [address] Platelet mean volume (Bld) [Entitic vol] 10.0 fL Normal 9.0-12.7 [facility] Comment on above: Performed By: #### L [id number] ####V[employer]er Stock Layer: VASHTI BAILEY ([id number])[facility] [place] [address] Platelets (Bld) [#/Vol] 196 10*3/uL Normal 140-440 [facility] Comment on above: Performed By: #### L [id number] ####V[employer] Layer: VASHTI BAILEY ([id number])[facility] [place] [address] RBC (Bld) [#/Vol] 3.00 10*6/uL Low 3.80-5.20 [facility] Comment on above: Performed By: #### L [id number] ####V[employer]er Stock Layer: VASHTI BAILEY ([id number])[facility])[address] [place] [address] WBC (Bld) [#/Vol] 6.8 10*3/uL Normal 3.6-10.7 [facility] Comment on above: Performed By: #### L [id number] ####[employer] Layer: VASHTI BAILEY ([id number])[facility] [place] [address] COMPREHENSIVE METABOLIC PANE Florentin 07-02-2025 Albumin [Mass/Vol] 2.7 g/dL Low 3.4-4.8 [facility] Comment on above: Performed By: #### L [id number] ####Veneer Stock Layer: VASHTI BAILEY ([id number])[facility] [place] [address] ALP [Catalytic activity/Vol] 141 U/L Normal 40-150 [facility] Comment on above: Performed By: #### L [id number] ####Veneer Stock Layer: VASHTI BAILEY ([id number])[facility])[address] [place] [address] ALT [Catalytic activity/Vol] 26 U/L Normal <30 [facility] Comment on above: Performed By: #### L [id number] ####Veneer Stock Layer: VASHTI BIALEY ([id number])[facility])[address] [place] [address] Anion gap [Moles/Vol] 12 mmol/L Normal 3-13 [facility] Comment on above: Performed By: #### L [id number] ####Veneer Stock Layer: VASHTI BAILEY ([id number])[facility] [place] [address] AST [Catalytic activity/Vol] 33 U/L Normal <34 [facility] Comment on above: Performed By: #### L [id number] ####Veneer Stock Layer: VASHTI BAILEY ([id number])[facility] [place] [address] Bilirubin [Mass/Vol] 0.6 mg/dL Normal <1.2 [facility] Comment on above: Performed By: #### L [id number] ####Veneer Stock Layer: VASHTI BAILEY ([id number])[facility] [place] [address] Calcium [Mass/Vol] 10.1 mg/dL High 8.8-10.0 [facility] Comment on above: Performed By: #### L [id number] ####Veneer Stock Layer: VASHTI BAILEY ([id number])[facility] [place] [address] Chloride [Moles/Vol] 91 mmol/L Low 98-107 [facility] Comment on above: Performed By: #### L [id number] ####Veneer Stock Layer: VASHTI BAILEY ([id number])[facility] [place] [address] CO2 [Moles/Vol] 30 mmol/L Normal 23-31 [facility] Comment on above: Performed By: #### L [id number] ####Veneer Stock Layer: VASHTI BAILEY ([id number])[facility] [place] [address] Creatinine [Mass/Vol] 3.38 mg/dL High 0.57-1.11 [facility] Comment on above: Performed By: #### L [id number] ####Veneer Stock Layer: VASHTI BAILEY ([id number])[facility])[address] [place] [address] [place] GLOMERULAR FILTRATION RATE ML/MIN/1.73 SQ M.PREDICTED 13.5 mL/min/1.73m*2 Low >60.0 [facility] Comment on above: Result Comment: Calc ulation based on the Chronic Kidney Disease Epidemiology Collaboration (CKD-EPI) equation refit without adjustment for race Performed By: #### L [id number] ####Veneer Stock Layer: VASHTI BAILEY ([id number])[facility] [place] [address] [place] Glucose [Mass/Vol] 124 mg/dL High 82-115 [facility] Comment on above: Performed By: #### L [id number] ####Veneer Stock Layer: VASHTI BAILEY ([id number])[facility])[address] [place] [address] Potassium [Moles/Vol] 3.8 mmol/L Normal 3.5-5.1 [facility] Comment on above: Result Comment: [facility] potassium values may be up to 0.5 mmol/L lower than serum values. Performed By: #### L [id number] ####Veneer Stock Layer: VASHTI BAILEY ([id number])[facility])[address] [place] [address] [place] Protein [Mass/Vol] 6.9 g/dL Normal 6.4-8.3 [facility] Comment on above: Performed By: #### L [id number] ####Veneer Stock Layer: VASHTI BAILEY ([id number])[facility])[address] [place] [address] [place] Sodium [Moles/Vol] 133 mmol/L Low 136-145 [facility] Comment on above: Performed By: #### L [id number] ####Veneer Stock Layer: VASHTI BAILEY ([id number])[facility])[address] [place] [address] [place] Urea nitrogen [Mass/Vol] 74 mg/dL High 9-23 [facility] Comment on above: Performed By: #### L [id number] ####Veneer Stock Layer: VASHTI BAILEY ([id number])[facility] ([facility] Comprehensive metabolic 1998 panelon 07-02-2025 Albumin [Mass/Vol] 2.7 g/dL Low 3.4 - 4.8 g/dL [facility] ALP [Catalytic activity/Vol] 141 U/L 40 - 150 U/L [facility] ALT [Catalytic activity/Vol] 26 U/L NINF - 30 U/L [facility] Anion gap [Moles/Vol] 12 mmol/L 3 - 13 mmol/L [facility] AST [Catalytic activity/Vol] 33 U/L NINF - 34 U/L [facility] Bilirubin [Mass/Vol] 0.6 mg/dL NINF - 1.2 mg/dL [facility] Calcium [Mass/Vol] 10.1 mg/dL High 8.8 - 10. 0 mg/dL [facility] Chloride [Moles/Vol] 91 mmol/L Low 98 - 10 7 mmol/L [facility] CO2 [Moles/Vol] 30 mmol/L 23 - 31 mmol/L [facility] Creatinine [Mass/Vol] 3.38 mg/dL High 0.57 - 1.11 mg/dL [facility] GFR/1.73 sq M.predicted (S/P/Bld) [Vol rate/Area] 13.5 mL/min Low - PINF [facility] Comment on above: Calculation based on the Chronic Kidney Disease Epidemiology Collaboration (CKD-EPI) equation refit without adjustment for race Glucose [Mass/Vol] 124 mg/dL High 82 - 115 mg/dL [facility] Interpretation and review of laboratory results Abnormal [facility] Potassium [Moles/Vol] 3.8 mmol/L 3.5 - 5.1 mmol/L [facility] Comment on above: Plasma potassium andrae ues may be up to 0.5 mmol/L lower than serum values. Protein [Mass/Vol] 6.9 g/dL 6.4 - 8.3 g/dL [facility] Sodium [Moles/Vol] 133 mmol/L Low 136 - 145 mmol/L [facility] Urea nitrogen [Mass/Vol] 74 mg/dL High 9 - 23 mg/dL [facility] ED Nursing Noteon 07-02-2025 ED Nursing Note Discharge discussed with transport at this time. Patient leaves in stable condition. IV removed, gauze and tape placed over insertion site. Normal [facility] ED Nursing Note remote broadcast technician at bedside - reports no issues flushing and pulling from catheter. Normal [facility] ED Provider Noteon ED Provider Note Normal [facility] Respiratory Cultureon 2024 RESPC Normal [facility] Comment on above: Performed By: #### M 100.2400, M100.1999 ####[facility] [id number] [place], [address] Gram Stainon 06-28-2025 GS 405-2 Acceptable Specimen? Yes (<25 Epithelial cells per/lpf) Gram Stain 4+ Gram positive rods Rare Gram negative rods 2+ White Blood Cells No Epithelial cells [facility] Comment on above: Performed By: #### M 100.2400, M1.1999 ####[facility] [id number] [place], [address] [id number] 06-21-2025 [id number] Usp/SNF - [place] [phone] Returning to Facility [facility] [phone] [facility] [phone] Transport requested 5PM in [facility]. Awaiting time confirmation. [facility] [phone] Discharge med list [facility] per TCC request. [facility] CBC (HEMOGRAM)on 06-21-2025 Erythrocyte distribution width (RBC) [Ratio] 17.9 % High 11.5-15.0 [facility] Comment on above: Performed By: #### L [id number] ####Veneer Stock Layer: NATALIE GARCIA ([id number])[facility] MELISSA (SBHLAB)[address] Hematocrit (Bld) [Volume fraction] 23.2 % Low 35.0-47.0 [facility] Comment on above: Performed By: #### L [id number] ####Veneer Stock Layer: NATALIE GARCIA ([id number])[facility] [place] (SBHL[facility])[address] Hemoglobin (Bld) [Mass/Vol] 7.2 g/dL Low 11.7-16.0 [facility] Comment on above: Performed By: #### L [id number] ####Veneer Stock Layer: NATALIE GARCIA ([id number])[facility]BNEW [facility] (SBHLAB)[address] MCH (RBC) [Entitic mass] 26.3 pg Normal 26.0-34.0 [facility] Comment on above: Performed By: #### L [id number] ####Veneer Stock Layer: NATALIE GARCIA ([id number])[facility]ENTERJos[facility] Miguel BARBNEW MEXICO [facility]N (SBHLAB)[address] MCHC 31.0 % Normal 30.5-36.0 [facility] Comment on above: Performed By: #### L [id number] ####Veneer Stock Layer: NATALIE GARCIA ([id number])[facility] BARBMAGNUSN (SBHLAB)[address] MCV (RBC) [Entitic vol] 84.7 fL Normal 77.0-99.0 [facility] Comment on above: Performed By: #### L [id number] ####Veneer Stock Layer: NATALIE GARCIA ([id number])[facility]BNEW [facility] (SBHLAB)[address] Platelet mean volume (Bld) [Entitic vol] 9.9 fL Normal 9.0-12.7 [facility] Comment on above: Performed By: #### L [id number] ####Veneer Stock Layer: NATALIE GARCIA ([id number])[facility]BNEW [facility] (SBHLAB)[address] Platelets (Bld) [#/Vol] 242 10*3/uL Normal 140-440 [facility] Comment on above: Performed By: #### L [id number] ####Veneer Stock Layer: NATALIE GARCIA ([id number])[facility] (SBHLAB)[address] RBC (Bld) [#/Vol] 2.74 10*6/uL Low 3.80-5.20 [facility] Comment on above: Performed By: #### L [id number] ####Veneer Stock Layer: NATALIE GARCIA ([id number])[facility] (SBAB)[address] WBC (Bld) [#/Vol] 7.0 10*3/uL Normal 3.6-10.7 [facility] Comment on above: Performed By: #### L [id number] ####Veneer Stock Layer: NATALIE GARCIA ([id number])[facility] (SBHLAB)[address] [place] [address] CBC panel Auto (Bld)on 06-21 Erythrocyte distribution width (RBC) [Ratio] 17.9 % High 11.5 - 15.0 % [facility] Hematocrit (Bld) [Volume fraction] 23.2 % Low 35.0 - 47.0 % [facility] Hemoglobin (Bld) [Mass/Vol] 7.2 g/dL Low 11.7 - 16.0 g/dL [facility] Interpretation and review of laboratory results Abnormal [facility] MCH (RBC) [Entitic mass] 26.3 pg 26.0 - 34.0 pg [facility] MCHC (RBC) [Mass/Vol] 31 % 30.5 - 36.0 % [facility] MCV (RBC) [Entitic vol] 84.7 fL 77.0 - 99.0 fL [facility] Platelet mean volume (Bld) [Entitic vol] 9.9 fL 9.0 - 12.7 fL [facility] Platelets (Bld) [#/Vol] 242 10*3/uL 140 - 440 10*3/uL [facility] RBC (Bld) [#/Vol] 2.74 10*6/uL Low 3.80 - 5.2 0 10*6/uL [facility] WBC (Bld) [#/Vol] 7 10*3/uL 3.6 - 10.7 10*3/uL [facility] COMPREHENSIVE METABOLIC PANE Florentin 06-21-2025 Albumin [Mass/Vol] 2.2 g/dL Low 3.4-4.8 [facility] Comment on above: Performed By: #### L [id number], LAB17 ####Veneer Stock Layer: NATALIE GARCIA ([id number])[facility] [place] (SBHLAB)[address] ALP [Catalytic activity/Vol] 113 U/L Normal 40-150 [facility] Comment on above: Performed By: #### L AB103, LAB17 ####Veneer Stock Layer: NATALIE GARCIA ([id number])[facility] (SBHLAB)[address] ALT [Catalytic activity/Vol] 8 U/L Normal <30 [facility] Comment on above: Performed By: #### L [id number], LAB17 ####Veneer Stock Layer: NATALIE GARCIA ([id number])[facility] [place] (SBHLAB)[address] Anion gap [Moles/Vol] 10 mmol/L Normal 3-13 [facility] Comment on above: Performed By: #### L AB103, LAB17 ####Veneer Stock Layer: NATALIE GARCIA ([id number])[facility] [place] (SBHLAB)[address] AST [Catalytic activity/Vol] 19 U/L Normal <34 [facility] Comment on above: Performed By: #### L [id number], LAB17 ####Veneer Stock Layer: NATALIE GARCIA ([id number])[facility] [place] (SBHLAB)[address] Bilirubin [Mass/Vol] 0.6 mg/dL Normal <1.2 [facility] Comment on above: Performed By: #### L [id number], LAB17 ####Veneer Stock Layer: NATALIE GARCIA ([id number])[facility]ENTERJos[facility] Miguel REHMANELIAS (SBHLAB)[address] Calcium [Mass/Vol] 8.7 mg/dL Low 8.8-10.0 [facility] Comment on above: Performed By: #### L AB103, LAB17 ####Veneer Stock Layer: NATALIE GARCIA ([id number])[facility] BARBMAGNUSN (SBHLAB)[address] Chloride [Moles/Vol] 98 mmol/L Normal 98-107 [facility] Comment on above: Performed By: #### L AB103, LAB17 ####Veneer Stock Layer: NATALIE GARCIA ([id number])[facility]ENTERJos[facility] Miguel REHMNAMAGNUSN (SBHLAB)[address] CO2 [Moles/Vol] 27 mmol/L Normal 23-[address] [facility] Comment on above: Performed By: #### L [id number], LAB17 ####Veneer Stock Layer: NATALIE GARCIA ([id number])[facility] TAMARMAGNUSN (SBHLAB)[address] Creatinine [Mass/Vol] 2.06 mg/dL High 0.57-1.11 [facility] Comment on above: Performed By: #### L AB103, LAB17 ####Veneer Stock Layer: NATALIE GARCIA ([id number])[facility] BARBMAGNUSN (SBHLAB)[address] GLOMERULAR FILTRATION RATE ML/MIN/1.73 SQ M.PREDICTED 24.4 mL/min/1.73m*2 Low >60.0 [facility] Comment on above: Result Comment: Calc ulation based on the Chronic Kidney Disease Epidemiology Collaboration (CKD-EPI) equation refit without adjustment for race Performed By: #### L [id number], LAB17 ####Veneer Stock Layer: NATALIE GARCIA ([id number])[facility]ENTER[facility] Miguel TAMARMAGNUSN (SBHLAB)[address] Glucose [Mass/Vol] 103 mg/dL Normal 82-115 [facility] Comment on above: Performed By: #### L [id number], LAB17 ####Veneer Stock Layer: NATALIE GARCIA ([id number])[facility] (SBHLAB)[address] Potassium [Moles/Vol] 3.5 mmol/L Normal 3.5-5.1 [facility] Comment on above: Result Comment: [facility] potassium values may be up to 0.5 mmol/L lower than serum values. Performed By: #### L AB103, LAB17 ####Veneer Stock Layer: NATALIE GARCIA ([id number])[facility] (SBHLAB)[address] Protein [Mass/Vol] 6.4 g/dL Normal 6.4-8.3 [facility] Comment on above: Performed By: #### L [id number], LAB17 ####Veneer Stock Layer: NATALIE GARCIA ([id number])[facility] ([facility])[address] Sodium [Moles/Vol] 135 mmol/L Low 136-145 [facility] Comment on above: Performed By: #### L [id number], LAB17 ####Veneer Stock Layer: NATALIE GARCIA ([id number])[facility] (SBHLAB)[address] Urea nitrogen [Mass/Vol] 22 mg/dL Normal 9-23 [facility] Comment on above: Performed By: #### L [id number], LAB17 ####Veneer Stock Layer: NATALIE GARCIA ([id number])[facility] (SBHLAB)[address] Comprehensive metabolic 1998 panelon 06-21-2025 Albumin [Mass/Vol] 2.2 g/dL Low 3.4 - 4.8 g/dL [facility] ALP [Catalytic activity/Vol] 113 U/L 40 - 150 U/L [facility] ALT [Catalytic activity/Vol] 8 U/L NINF - 30 U/L [facility] Anion gap [Moles/Vol] 10 mmol/L 3 - 13 mmol/L [facility] AST [Catalytic activity/Vol] 19 U/L NINF - 34 U/L [facility] Bilirubin [Mass/Vol] 0.6 mg/dL NINF - 1.2 mg/dL [facility] Calcium [Mass/Vol] 8.7 mg/dL Low 8.8 - 10. 0 mg/dL [facility] Chloride [Moles/Vol] 98 mmol/L 98 - 10 7 mmol/L [facility] CO2 [Moles/Vol] 27 mmol/L 23 - 31 mmol/L [facility] Creatinine [Mass/Vol] 2.06 mg/dL High 0.57 - 1.11 mg/dL [facility] GFR/1.73 sq M.predicted (S/P/Bld) [Vol rate/Area] 24.4 mL/min Low - PINF [facility] Glucose [Mass/Vol] 103 mg/dL 82 - 115 mg/dL [facility] Interpretation and review of laboratory results Abnormal [facility] Potassium [Moles/Vol] 3.5 mmol/L 3.5 - 5.1 mmol/L [facility] Protein [Mass/Vol] 6.4 g/dL 6.4 - 8.3 g/dL [facility] Sodium [Moles/Vol] 135 mmol/L Low 136 - 145 mmol/L [facility] Urea nitrogen [Mass/Vol] 22 mg/dL 9 - 23 mg/dL [facility] Laboratory - Chemistry and C hemistry - challengeon 06-21-2025 Glucose [Mass/Vol] 93 mg/dL 70 - 100 mg/dL [facility] Glucose [Mass/Vol] 85 mg/dL 70 - 100 mg/dL [facility] Glucose [Mass/Vol] 87 mg/dL 70 - 100 mg/dL [facility] Glucose [Mass/Vol] 75 mg/dL 70 - 100 mg/dL [facility] Magnesium [Mass/Vol] 1.9 mg/dL 1.6 - 2 .6 mg/dL [facility] MAGNESIUMon 06-21-2025 Magnesium [Mass/Vol] 1.9 mg/dL Normal 1.6-2.6 [facility] Comment on above: Result Comment: DORIAN Knight COMMENTS:Higher values can be expected in females during menses. Performed By: #### L [id number], LAB17 ####Veneer Stock Layer: NATALIE GARCIA ([id number])[facility]ENTER[facility] (SBAB)[address] [place] [address] Magnesium [Mass/Vol]on 06-21 Interpretation and review of laboratory results Normal [facility] No Panel Informationon 06-21 Interpretation and review of laboratory results Normal [facility] Interpretation and review of laboratory results Normal [facility] Interpretation and review of laboratory results Normal [facility] Interpretation and review of laboratory results Normal [facility] Nursing Noteon 06-21-2025 Nursing Note Normal [facility] Progress Noteon 06-21-2025 Progress [facility] RF Guidance for removal of t unneled CV catheteron 06-21-2025 [facility] RADIOLOGY [facility] RADIOLOGY [facility] Radiology Study observation (narrative) [facility] He alth [id number] 06-20-2025 [id number] Normal [facility] CBC W Auto Differential pane l (Bld)on 06-20-2025 Basophils (Bld) [#/Vol] 0.1 10*3/uL 0.0 - 0.2 10*3/uL [facility] Basophils/100 WBC (Bld) 1 % 0.0 - 2.0 % [facility] Eosinophils (Bld) [#/Vol] 0.2 10*3/uL 0.0 - 0.5 10*3/uL [facility] Eosinophils/100 WBC (Bld) 4 % 0.0 - 6.0 % [facility] Erythrocyte distribution width (RBC) [Ratio] 18.5 % High 11.5 - 15.0 % [facility] Hematocrit (Bld) [Volume fraction] 25.2 % Low 35.0 - 47.0 % [facility] Hemoglobin (Bld) [Mass/Vol] 7.8 g/dL Low 11.7 - 16.0 g/dL [facility] Immature granulocytes (Bld) [#/Vol] 0 10*3/uL NINF - 0.1 10*3/uL [facility] Immature granulocytes/100 WBC (Bld) 0.5 % 0.0 - 2.0 % [facility] Interpretation and review of laboratory results Abnormal [facility] Lymphocytes (Bld) [#/Vol] 0.8 10*3/uL Low 1.0 - 4.3 10*3/uL [facility] Lymphocytes/100 WBC (Bld) 13.9 % Low 15.0 - 45.0 % [facility] MCH (RBC) [Entitic mass] 26.4 pg 26.0 - 34.0 pg [facility] MCHC (RBC) [Mass/Vol] 31 % 30.5 - 36.0 % [facility] MCV (RBC) [Entitic vol] 85.4 fL 77.0 - 99.0 fL [facility] Monocytes (Bld) [#/Vol] 0.7 10*3/uL 0.0 - 0.9 10*3/uL [facility] Monocytes/100 WBC (Bld) 11.6 % 5.0 - 13.0 % [facility] Neutrophils (Bld) [#/Vol] 4.2 10*3/uL 1.8 - 7.5 10*3/uL [facility] Neutrophils/100 WBC (Bld) 69 % 38.0 - 82.0 % [facility] Nucleated RBC/100 WBC (Bld) [Ratio] 0 % [facility] Platelet mean volume (Bld) [Entitic vol] 10 fL 9.0 - 12.7 fL [facility] Platelets (Bld) [#/Vol] 240 10*3/uL 140 - 440 10*3/uL [facility] RBC (Bld) [#/Vol] 2.95 10*6/uL Low 3.80 - 5.2 0 10*6/uL [facility] WBC (Bld) [#/Vol] 6.1 10*3/uL 3.6 - 10.7 10*3/uL [facility] CBC WITH AUTO DIFFERENTIALon 06-20-2025 Basophils (Bld) [#/Vol] 0.1 10*3/uL Normal 0.0-0.2 [facility] Comment on above: Performed By: #### L [id number] ####Veneer Stock Layer: NATALIE GARCIA ([id number])[facility] [place] (SBHLAB)[address] Basophils/100 WBC (Bld) 1.0 % Normal 0.0-2.0 [facility] Comment on above: Performed By: #### L [id number] ####Veneer Stock Layer: NATALIE GARCIA ([id number])[facility] [place] (SBHLAB)[address] Eosinophils (Bld) [#/Vol] 0.2 10*3/uL Normal 0.0-0.5 [facility] Comment on above: Performed By: #### L [id number] ####Veneer Stock Layer: NATALIE GARCIA ([id number])[facility] [place] (SBHLAB)[address] Eosinophils/100 WBC (Bld) 4.0 % Normal 0.0-6.0 [facility] Comment on above: Performed By: #### L [id number] ####Veneer Stock Layer: NATALIE GARCIA ([id number])[facility] [place] (SBHLAB)[address] Erythrocyte distribution width (RBC) [Ratio] 18.5 % High 11.5-15.0 [facility] Comment on above: Performed By: #### L [id number] ####Veneer Stock Layer: NATALIE GARCIA ([id number])[facility] [place] (SBHLAB)[address] Hematocrit (Bld) [Volume fraction] 25.2 % Low 35.0-47.0 [facility] Comment on above: Performed By: #### L [id number] ####Veneer Stock Layer: NATALIE GARCIA ([id number])[facility] [place] (SBHLAB)[address] Hemoglobin (Bld) [Mass/Vol] 7.8 g/dL Low 11.7-16.0 [facility] Comment on above: Performed By: #### L [id number] ####Veneer Stock Layer: NATALIE GARCIA ([id number])[facility] (SBHLAB)[address] IMMATURE GRANS % 0.5 % Normal 0.0-2.0 [facility] Comment on above: Performed By: #### L [id number] ####Veneer Stock Layer: NATALIE GARCIA ([id number])[facility] [place] (SBHLAB)[address] IMMATURE GRANS ABSOLUTE 0.0 10*3/uL Normal <0.1 [facility] Comment on above: Performed By: #### L [id number] ####Veneer Stock Layer: NATALIE GARCIA ([id number])[facility] [place] (SBHLAB)[address] Lymphocytes (Bld) [#/Vol] 0.8 10*3/uL Low 1.0-4.3 [facility] Comment on above: Performed By: #### L [id number] ####Veneer Stock Layer: NATALIE GARCIA ([id number])[facility] [place] (SBHLAB)[address] Lymphocytes/100 WBC (Bld) 13.9 % Low 15.0-45.0 [facility] Comment on above: Performed By: #### L [id number] ####Veneer Stock Layer: NATALIE GARCIA ([id number])[facility] [place] ([facility])[address] MCH (RBC) [Entitic mass] 26.4 pg Normal 26.0-34.0 [facility] Comment on above: Performed By: #### L [id number] ####[employer] Layer: NATALIE GARCIA ([id number])[facility] [place] ([facility])[address] MCHC 31.0 % Normal 30.5-36.0 [facility] Comment on above: Performed By: #### L [id number] ####[employer] Layer: NATALIE GARCIA ([id number])[facility] [place] (SBHLAB)[address] MCV (RBC) [Entitic vol] 85.4 fL Normal 77.0-99.0 [facility] Comment on above: Performed By: #### L [id number] ####[employer] Layer: NATALIE GARCIA ([id number])[facility] [place] (SBHLAB)[address] Monocytes (Bld) [#/Vol] 0.7 10*3/uL Normal 0.0-0.9 [facility] Comment on above: Performed By: #### L [id number] ####[employer] Layer: NATALIE GARCIA ([id number])[facility] [place] ([facility])[address] Monocytes/100 WBC (Bld) 11.6 % Normal 5.0-13.0 [facility] Comment on above: Performed By: #### L [id number] ####Veneer Stock Layer: NATALIE GARCIA ([id number])[facility] [place] (SBHLAB)[address] NEUTROPHILS ABSOLUTE 4.2 10*3/uL Normal 1.8-7.5 [facility] Comment on above: Performed By: #### L [id number] ####Veneer Stock Layer: NATALIE GARCIA ([id number])[facility] [place] (SBHLAB)[address] Neutrophils/100 WBC (Bld) 69.0 % Normal 38.0-82.0 [facility] Comment on above: Performed By: #### L [id number] ####Veneer Stock Layer: NATALIE GARCIA ([id number])[facility] [place] (SBHLAB)[address] [place] [address] [place] NRBC 0.0 /100 WBCs Normal 0.0-2.0 [facility] Comment on above: Performed By: #### L [id number] ####Veneer Stock Layer: NATALIE GARCIA ([id number])[facility] [place] (SBHLAB)[address] Platelet mean volume (Bld) [Entitic vol] 10.0 fL Normal 9.0-12.7 [facility] Comment on above: Performed By: #### L [id number] ####Veneer Stock Layer: NATALIE GARCIA ([id number])[place] (SBHLAB)[address] Platelets (Bld) [#/Vol] 240 10*3/uL Normal 140-440 [facility] Comment on above: Performed By: #### L [id number] ####Veneer Stock Layer: NATALIE GARCIA ([id number])[facility]ENTER[facility] [place] (SBHLAB)[address] RBC (Bld) [#/Vol] 2.95 10*6/uL Low 3.80-5.20 [facility] Comment on above: Performed By: #### L [id number] ####Veneer Stock Layer: NATALIE GARCIA ([id number])[facility] [place] (SBHLAB)[address] WBC (Bld) [#/Vol] 6.1 10*3/uL Normal 3.6-10.7 [facility] Comment on above: Performed By: #### L [id number] ####Veneer Stock Layer: NATALIE GARCIA ([id number])[facility]ENTER[facility] Miguel [place] (SBHLAB)[address] COMPREHENSIVE METABOLIC PANE Florentin 06-20-2025 Albumin [Mass/Vol] 2.3 g/dL Low 3.4-4.8 [facility] Comment on above: Performed By: #### L [id number] ####Veneer Stock Layer: NATALIE GARCIA ([id number])[facility] [place] (SBHLAB)[address] ALP [Catalytic activity/Vol] 123 U/L Normal 40-150 [facility] Comment on above: Performed By: #### L [id number] ####Veneer Stock Layer: NATALIE GARCIA ([id number])[facility] [place] (SBHLAB)[address] ALT [Catalytic activity/Vol] 9 U/L Normal <30 [facility] Comment on above: Performed By: #### L [id number] ####Veneer Stock Layer: NATALIE GARCIA ([id number])[facility] [place] (SBHLAB)[address] Anion gap [Moles/Vol] 12 mmol/L Normal 3-13 [facility] Comment on above: Performed By: #### L [id number] ####Veneer Stock Layer: NATALIE GARCIA ([id number])[facility] [place] (SBHLAB)[address] AST [Catalytic activity/Vol] 19 U/L Normal <34 [facility] Comment on above: Performed By: #### L [id number] ####Veneer Stock Layer: NATALIE GARCIA ([id number])[facility] [place] (SBHLAB)[address] Bilirubin [Mass/Vol] 0.6 mg/dL Normal <1.2 [facility] Comment on above: Performed By: #### L [id number] ####Veneer Stock Layer: NATALIE GARCIA ([id number])[facility] [place] (SBHLAB)[address] Calcium [Mass/Vol] 9.1 mg/dL Normal 8.8-10.0 [facility] Comment on above: Performed By: #### L [id number] ####Veneer Stock Layer: NATALIE GARCIA ([id number])[facility] [place] (SBHLAB)[address] [place] [address] [place] Chloride [Moles/Vol] 97 mmol/L Low 98-107 [facility] Comment on above: Performed By: #### L [id number] ####Veneer Stock Layer: NATALIE GARCIA ([id number])[facility] [place] (SBHLAB)[address] [place] [address] [place] CO2 [Moles/Vol] 26 mmol/L Normal 23-[address] [facility] Comment on above: Performed By: #### L [id number] ####Veneer Stock Layer: NATALIE GARCIA ([id number])[facility] (SBHLAB)[address] Creatinine [Mass/Vol] 2.85 mg/dL High 0.57-1.11 [facility] Comment on above: Performed By: #### L [id number] ####Veneer Stock Layer: NATALIE GARCIA ([id number])[facility] GLOMERULAR FILTRATION RATE ML/MIN/1.73 SQ M.PREDICTED 16.5 mL/min/1.73m*2 Low >60.0 [facility] Comment on above: Result Comment: Calc ulation based on the Chronic Kidney Disease Epidemiology Collaboration (CKD-EPI) equation refit without adjustment for race Performed By: #### L [id number] ####Veneer Stock Layer: NATALIE GARCIA ([id number])[facility])[address] Glucose [Mass/Vol] 129 mg/dL High 82-115 [facility] Comment on above: Performed By: #### L [id number] ####Veneer Stock Layer: NATALIE GARCIA ([id number])[facility] ([facility])[address] [place] [address] Potassium [Moles/Vol] 3.9 mmol/L Normal 3.5-5.1 [facility] Comment on above: Result Comment: [facility] potassium values may be up to 0.5 mmol/L lower than serum values. Performed By: #### L [id number] ####Veneer Stock Layer: NATALIE GARCIA ([id number])[facility] ([facility])[address] Protein [Mass/Vol] 6.5 g/dL Normal 6.4-8.3 [facility] Comment on above: Performed By: #### L [id number] ####Veneer Stock Layer: NATALIE GARCIA ([id number])[facility]ENTER[facility] Miguel [place] (SBHLAB)[address] Sodium [Moles/Vol] 135 mmol/L Low 136-145 [facility] Comment on above: Performed By: #### L [id number] ####Veneer Stock Layer: NATALIE GARCIA ([id number])[facility] [place]IS[place] (SBHLAB)[address] Urea nitrogen [Mass/Vol] 35 mg/dL High 9-23 [facility] Comment on above: Performed By: #### L [id number] ####Veneer Stock Layer: NATALIE GARCIA ([id number])[facility]ENTER[facility] [place] (SBHLAB)[address] Comprehensive metabolic 1998 panelon 06-20-2025 Albumin [Mass/Vol] 2.3 g/dL Low 3.4 - 4.8 g/dL [facility] ALP [Catalytic activity/Vol] 123 U/L 40 - 150 U/L [facility] ALT [Catalytic activity/Vol] 9 U/L NINF - 30 U/L [facility] Anion gap [Moles/Vol] 12 mmol/L 3 - 13 mmol/L [facility] AST [Catalytic activity/Vol] 19 U/L NINF - 34 U/L [facility] Bilirubin [Mass/Vol] 0.6 mg/dL [facility] mg/dL [facility] Calcium [Mass/Vol] 9.1 mg/dL 8.8 - 10. 0 mg/dL [facility] Chloride [Moles/Vol] 97 mmol/L Low 98 - 10 7 mmol/L [facility] CO2 [Moles/Vol] 26 mmol/L 23 - 31 mmol/L [facility] Creatinine [Mass/Vol] 2.85 mg/dL High 0.57 - 1.11 mg/dL [facility] GFR/1.73 sq M.predicted (S/P/Bld) [Vol rate/Area] 16.5 mL/min Low - PINF [facility] Glucose [Mass/Vol] 129 mg/dL High 82 - 115 mg/dL [facility] Interpretation and review of laboratory results Abnormal [facility] Potassium [Moles/Vol] 3.9 mmol/L 3.5 - 5.1 mmol/L [facility] Protein [Mass/Vol] 6.5 g/dL 6.4 - 8.3 g/dL [facility] Sodium [Moles/Vol] 135 mmol/L Low 136 - 145 mmol/L [facility] Urea nitrogen [Mass/Vol] 35 mg/dL High 9 - 23 mg/dL [facility] Laboratory - Chemistry and C hemistry - challengeon 06-20-2025 Glucose [Mass/Vol] 118 mg/dL High 70 - 100 mg/dL [facility] Glucose [Mass/Vol] 108 mg/dL High 70 - 100 mg/dL [facility] Glucose [Mass/Vol] 127 mg/dL High 70 - 100 mg/dL [facility] Glucose [Mass/Vol] 127 mg/dL High 70 - 100 mg/dL [facility] No Panel Informationon 06-20 Interpretation and review of laboratory results Abnormal [facility] Interpretation and review of laboratory results Abnormal [facility] Interpretation and review of laboratory results Abnormal [facility] Interpretation and review of laboratory results Abnormal [facility] Nursing Noteon 06-20-2025 Nursing Note Normal [facility] Progress Noteon 06-20-2025 [facility] No SBT indicated due to PT vent dependent. Normal [facility] Progress Note Normal [facility] Progress Note [facility] Progress Note Normal [facility] Progress [facility] Normal [facility] Progress [facility] Normal [facility] [id number] 06-19-2025 [id number] Normal [facility] CBC W Auto Differential pane l (Bld)on 06-19-2025 Basophils (Bld) [#/Vol] 0.1 10*3/uL 0.0 - 0.2 10*3/uL [facility] Basophils/100 WBC (Bld) 0.9 % 0.0 - 2.0 % [facility] Eosinophils (Bld) [#/Vol] 0.2 10*3/uL 0.0 - 0.5 10*3/uL [facility] Eosinophils/100 WBC (Bld) 2.2 % 0.0 - 6.0 % [facility] SCVNGR Erythrocyte distribution width (RBC) [Ratio] 18.2 % High 11.5 - 15.0 % [facility] SCVNGR Hematocrit (Bld) [Volume fraction] 25 % Low 35.0 - 47.0 % [facility] Hemoglobin (Bld) [Mass/Vol] 7.8 g/dL Low 11.7 - 16.0 g/dL [facility] SCVNGR Immature granulocytes (Bld) [#/Vol] 0 10*3/uL NINF - 0.1 10*3/uL [facility] SCVNGR Immature granulocytes/100 WBC (Bld) 0.3 % 0.0 - 2.0 % [facility] Interpretation and review of laboratory results Abnormal [facility] SCVNGR Lymphocytes (Bld) [#/Vol] 1 10*3/uL 1.0 - 4.3 10*3/uL [facility] Lymphocytes/100 WBC (Bld) 13.6 % Low 15.0 - 45.0 % [facility] MCH (RBC) [Entitic mass] 26.8 pg 26.0 - 34.0 pg [facility] MCHC (RBC) [Mass/Vol] 31.2 % 30.5 - 36.0 % [facility] MCV (RBC) [Entitic vol] 85.9 fL 77.0 - 99.0 fL [facility] SCVNGR Monocytes (Bld) [#/Vol] 0.8 10*3/uL 0.0 - 0.9 10*3/uL [facility] Health Monocytes/100 WBC (Bld) 10.2 % 5.0 - 13.0 % [facility] Neutrophils (Bld) [#/Vol] 5.5 10*3/uL 1.8 - 7.5 10*3/uL [facility] Neutrophils/100 WBC (Bld) 72.8 % 38.0 - 82.0 % [facility] Nucleated RBC/100 WBC (Bld) [Ratio] 0 % [facility] SCVNGR Platelet mean volume (Bld) [Entitic vol] 9.9 fL 9.0 - 12.7 fL [facility] SCVNGR Platelets (Bld) [#/Vol] 250 10*3/uL 140 - 440 10*3/uL [facility] RBC (Bld) [#/Vol] 2.91 10*6/uL Low 3.80 - 5.2 0 10*6/uL [facility] WBC (Bld) [#/Vol] 7.6 10*3/uL 3.6 - 10.7 10*3/uL [facility] CBC WITH AUTO DIFFERENTIALon 06-19-2025 Basophils (Bld) [#/Vol] 0.1 10*3/uL Normal 0.0-0.2 [facility] Comment on above: Performed By: #### L [id number] ####Veneer Stock Layer: NATALIE GARCIA ([id number])[facility] [place] (SBHLAB)[address] Basophils/100 WBC (Bld) 0.9 % Normal 0.0-2.0 S [facility] Comment on above: Performed By: #### L [id number] ####Veneer Stock Layer: NATALIE GARCIA ([id number])[facility] ([facility])[address] [place] [address] Eosinophils (Bld) [#/Vol] 0.2 10*3/uL Normal 0.0-0.5 [facility] Comment on above: Performed By: #### L [id number] ####Veneer Stock Layer: NATALIE GARCIA ([id number])[facility] [place] (SBAB)[address] [place] [address] Eosinophils/100 WBC (Bld) 2.2 % Normal 0.0-6.0 [facility] Comment on above: Performed By: #### L [id number] ####Veneer Stock Layer: NATALIE GARCIA ([id number])[facility] (SB[facility])[address] [place] [address] Erythrocyte distribution width (RBC) [Ratio] 18.2 % High 11.5-15.0 [facility] Comment on above: Performed By: #### L [id number] ####Veneer Stock Layer: NATALIE GARCIA ([id number])[facility] (SBAB)[address] [place] [address] Hematocrit (Bld) [Volume fraction] 25.0 % Low 35.0-47.0 [facility] Comment on above: Performed By: #### L [id number] ####Veneer Stock Layer: NATALIE GARCIA ([id number])[facility] (SBHLAB)[address] Hemoglobin (Bld) [Mass/Vol] 7.8 g/dL Low 11.7-16.0 [facility] Comment on above: Performed By: #### L [id number] ####Veneer Stock Layer: NATALIE GARCIA ([id number])[facility] (SBHLAB)[address] IMMATURE GRANS % 0.3 % Normal 0.0-2.0 [facility] Comment on above: Performed By: #### L [id number] ####Veneer Stock Layer: NATALIE GARCIA ([id number])[facility] IMMATURE GRANS ABSOLUTE 0.0 10*3/uL Normal <0.1 [facility] Comment on above: Performed By: #### L [id number] ####Veneer Stock Layer: NATALIE GARCIA ([id number])[facility] ([facility])[address] Lymphocytes (Bld) [#/Vol] 1.0 10*3/uL Normal 1.0-4.3 [facility] Comment on above: Performed By: #### L [id number] ####Veneer Stock Layer: NATALIE GARCIA ([id number])[facility] ([facility])[address] Lymphocytes/100 WBC (Bld) 13.6 % Low 15.0-45.0 [facility] Comment on above: Performed By: #### L [id number] ####Veneer Stock Layer: NATALIE GARCIA ([id number])[facility] (SBAB)[address] MCH (RBC) [Entitic mass] 26.8 pg Normal 26.0-34.0 [facility] Comment on above: Performed By: #### L [id number] ####Veneer Stock Layer: NATALIE DENISETRICIA ([id number])[facility] [place] (SBHLAB)[address] MCHC 31.2 % Normal 30.5-36.0 [facility] Comment on above: Performed By: #### L [id number] ####Veneer Stock Layer: NATALIE SIMONDANIEL ([id number])[facility] [place] (SBHLAB)[address] MCV (RBC) [Entitic vol] 85.9 fL Normal 77.0-99.0 [facility] Comment on above: Performed By: #### L [id number] ####Veneer Stock Layer: NATALIE SIMONDANIEL ([id number])[facility] [place] (SBHLAB)[address] [place] [address] Monocytes (Bld) [#/Vol] 0.8 10*3/uL Normal 0.0-0.9 [facility] Comment on above: Performed By: #### L [id number] ####Veneer Stock Layer: NATALIE DENISETRICIA ([id number])[facility] [place] (SBHLAB)[address] Monocytes/100 WBC (Bld) 10.2 % Normal 5.0-13.0 [facility] Comment on above: Performed By: #### L [id number] ####Veneer Stock Layer: NATALIE GARCIA ([id number])[facility] [place] (SBHLAB)[address] NEUTROPHILS ABSOLUTE 5.5 10*3/uL Normal 1.8-7.5 [facility] Comment on above: Performed By: #### L [id number] ####Veneer Stock Layer: NATALIE DENISETRICIA ([id number])[facility] [place] (SBHLAB)[address] Neutrophils/100 WBC (Bld) 72.8 % Normal 38.0-82.0 [facility] Comment on above: Performed By: #### L [id number] ####Veneer Stock Layer: NATALIE DENISETRICAI ([id number])[facility]ENTERJosé Miguel [facility]NEW [facility] (SBHLAB)[address] NRBC 0.0 /100 WBCs Normal 0.0-2.0 [facility] Comment on above: Performed By: #### L [id number] ####Veneer Stock Layer: NATALIE JOSE ([id number])[facility] (SBHLAB)[address] Platelet mean volume (Bld) [Entitic vol] 9.9 fL Normal 9.0-12.7 [facility] Comment on above: Performed By: #### L [id number] ####Veneer Stock Layer: NATALIE SIMONDANIEL ([id number])[facility] (SBHLAB)[address] Platelets (Bld) [#/Vol] 250 10*3/uL Normal 140-440 [facility] Comment on above: Performed By: #### L [id number] ####Veneer Stock Layer: NATALIE DENISETRICIA ([id number])[facility] ([facility])[address] RBC (Bld) [#/Vol] 2.91 10*6/uL Low 3.80-5.20 [facility] Comment on above: Performed By: #### L [id number] ####Veneer Stock Layer: NATALIE GARCIA ([id number])[facility] (SB[facility]AB)[address] WBC (Bld) [#/Vol] 7.6 10*3/uL Normal 3.6-10.7 [facility] Comment on above: Performed By: #### L [id number] ####Veneer Stock Layer: NATALIE GARCIA ([id number])[facility] (SBHLAB)[address] COMPREHENSIVE METABOLIC PANE Florentin 06-19-2025 Albumin [Mass/Vol] 2.5 g/dL Low 3.4-4.8 [facility] Comment on above: Performed By: #### L [id number] ####Veneer Stock Layer: NATALIE GARCIA ([id number])[facility] [place] (SBHLAB)[address] ALP [Catalytic activity/Vol] 129 U/L Normal 40-150 [facility] Comment on above: Performed By: #### L [id number] ####Veneer Stock Layer: NATALIE GARCIA ([id number])[facility] [place] (SBHLAB)[address] ALT [Catalytic activity/Vol] 10 U/L Normal <30 [facility] Comment on above: Performed By: #### L [id number] ####Veneer Stock Layer: NATALIE GARCIA ([id number])[facility] [place] (SBHLAB)[address] Anion gap [Moles/Vol] 9 mmol/L Normal 3-13 [facility] Comment on above: Performed By: #### L [id number] ####Veneer Stock Layer: NATALIE GARCAI ([id number])[facility] (SBHLAB)[address] AST [Catalytic activity/Vol] 24 U/L Normal <34 [facility] Comment on above: Performed By: #### L [id number] ####Veneer Stock Layer: NATALIE GARICA ([id number])[facility] [place] (SBHLAB)[address] Bilirubin [Mass/Vol] 0.7 mg/dL Normal <1.2 [facility] Comment on above: Performed By: #### L [id number] ####Veneer Stock Layer: NATALIE GARCIA ([id number])[facility] [place] (SBHLAB)[address] Calcium [Mass/Vol] 9.1 mg/dL Normal 8.8-10.0 [facility] Comment on above: Performed By: #### L [id number] ####Veneer Stock Layer: NATALIE GARCIA ([id number])[facility] [place] (SBHLAB)[address] Chloride [Moles/Vol] 99 mmol/L Normal 98-107 [facility] Comment on above: Performed By: #### L [id number] ####Veneer Stock Layer: NATALIE GARCIA ([id number])[facility]ENTERJos[facility] Miguel [place] (SBHLAB)[address] CO2 [Moles/Vol] 27 mmol/L Normal 23-[address] [facility] Comment on above: Performed By: #### L [id number] ####Veneer Stock Layer: NATALIE GARCIA ([id number])[facility] (SBHLAB)[address] Creatinine [Mass/Vol] 2.33 mg/dL High 0.57-1.11 [facility] Comment on above: Performed By: #### L [id number] ####Veneer Stock Layer: NATALIE GARCIA ([id number])[facility] (SBHLAB)[address] GLOMERULAR FILTRATION RATE ML/MIN/1.73 SQ M.PREDICTED 21.1 mL/min/1.73m*2 Low >60.0 [facility] Comment on above: Result Comment: Calc ulation based on the Chronic Kidney Disease Epidemiology Collaboration (CKD-EPI) equation refit without adjustment for race Performed By: #### L [id number] ####Veneer Stock Layer: NATALIE GARCIA ([id number])[facility] (SBHLAB)[address] Glucose [Mass/Vol] 126 mg/dL High 82-115 [facility] Comment on above: Performed By: #### L [id number] ####Veneer Stock Layer: NATALIE GARCIA ([id number])[facility] (SBHLAB)[address] Potassium [Moles/Vol] 4.0 mmol/L Normal 3.5-5.1 [facility] Comment on above: Result Comment: [facility] potassium values may be up to 0.5 mmol/L lower than serum values. Performed By: #### L [id number] ####Veneer Stock Layer: NATALIE JOSE ([id number])[facility]ENTERJosé Miguel [place] (SBHLAB)[address] Protein [Mass/Vol] 6.8 g/dL Normal 6.4-8.3 [facility] Comment on above: Performed By: #### L [id number] ####Veneer Stock Layer: NATALIE SIMONDANIEL ([id number])[facility]ENTER[facility] [place] (SBHLAB)[address] Sodium [Moles/Vol] 135 mmol/L Low 136-145 [facility] Comment on above: Performed By: #### L [id number] ####Veneer Stock Layer: NATALIE SIMONDANIEL ([id number])[facility]ENTERJosé Miguel [place] (SBHLAB)[address] [place] [address] Urea nitrogen [Mass/Vol] 23 mg/dL Normal 9-23 [facility] Comment on above: Performed By: #### L [id number] ####Veneer Stock Layer: NATALIE JOSE ([id number])[facility]ENTERJosé Miguel [facility] (SB[facility])[address] Comprehensive metabolic 1998 panelon 06-19-2025 Albumin [Mass/Vol] 2.5 g/dL Low 3.4 - 4.8 g/dL [facility] ALP [Catalytic activity/Vol] 129 U/L 40 - 150 U/L [facility] ALT [Catalytic activity/Vol] 10 U/L NINF - 30 U/L [facility] Anion gap [Moles/Vol] 9 mmol/L 3 - 13 mmol/L [facility] AST [Catalytic activity/Vol] 24 U/L NINF - 34 U/L [facility] Bilirubin [Mass/Vol] 0.7 mg/dL NINF - 1.2 mg/dL [facility] Calcium [Mass/Vol] 9.1 mg/dL 8.8 - 10. 0 mg/dL [facility] Chloride [Moles/Vol] 99 mmol/L 98 - 10 7 mmol/L [facility] CO2 [Moles/Vol] 27 mmol/L 23 - 31 mmol/L [facility] Creatinine [Mass/Vol] 2.33 mg/dL High 0.57 - 1.11 mg/dL [facility] GFR/1.73 sq M.predicted (S/P/Bld) [Vol rate/Area] 21.1 mL/min Low - PINF [facility] Glucose [Mass/Vol] 126 mg/dL High 82 - 115 mg/dL [facility] Interpretation and review of laboratory results Abnormal [facility] Potassium [Moles/Vol] 4 mmol/L 3.5 - 5.1 mmol/L [facility] Protein [Mass/Vol] 6.8 g/dL 6.4 - 8.3 g/dL [facility] Sodium [Moles/Vol] 135 mmol/L Low 136 - 145 mmol/L [facility] Urea nitrogen [Mass/Vol] 23 mg/dL 9 - 23 mg/dL [facility] Laboratory - Chemistry and C hemistry - challengeon 06-19-2025 Glucose [Mass/Vol] 142 mg/dL High 70 - 100 mg/dL [facility] Glucose [Mass/Vol] 126 mg/dL High 70 - 100 mg/dL [facility] Glucose [Mass/Vol] 146 mg/dL High 70 - 100 mg/dL [facility] Glucose [Mass/Vol] 132 mg/dL High 70 - 100 mg/dL [facility] Glucose [Mass/Vol] 125 mg/dL High 70 - 100 mg/dL [facility] No Panel Informationon 06-19 Interpretation and review of laboratory results Abnormal [facility] Interpretation and review of laboratory results Abnormal [facility] Interpretation and review of laboratory results Abnormal [facility] Interpretation and review of laboratory results Abnormal [facility] Interpretation and review of laboratory results Abnormal [facility] Progress Noteon 06-19-2025 Progress Note Normal [facility] Progress [facility] Normal [facility] Progress Note Normal [facility] Progress Note Normal [facility] Progress Note Normal [facility] Progress Note Normal [facility] [id number] 06-18-2025 [id number] Normal [facility] CBC W Auto Differential pane l (Bld)on 06-18-2025 Basophils (Bld) [#/Vol] 0.1 10*3/uL 0.0 - 0.2 10*3/uL [facility] Basophils/100 WBC (Bld) 1 % 0.0 - 2.0 % [facility] Eosinophils (Bld) [#/Vol] 0.2 10*3/uL 0.0 - 0.5 10*3/uL [facility] Eosinophils/100 WBC (Bld) 3.5 % 0.0 - 6.0 % [facility] Erythrocyte distribution width (RBC) [Ratio] 18.2 % High 11.5 - 15.0 % [facility] Hematocrit (Bld) [Volume fraction] 24.4 % Low 35.0 - 47.0 % [facility] Hemoglobin (Bld) [Mass/Vol] 7.6 g/dL Low 11.7 - 16.0 g/dL [facility] Immature granulocytes (Bld) [#/Vol] 0 10*3/uL NINF - 0.1 10*3/uL [facility] Immature granulocytes/100 WBC (Bld) 0.3 % 0.0 - 2.0 % [facility] Interpretation and review of laboratory results Abnormal [facility] Lymphocytes (Bld) [#/Vol] 0.9 10*3/uL Low 1.0 - 4.3 10*3/uL [facility] Lymphocytes/100 WBC (Bld) 14.9 % Low 15.0 - 45.0 % [facility] MCH (RBC) [Entitic mass] 26.7 pg 26.0 - 34.0 pg [facility] MCHC (RBC) [Mass/Vol] 31.1 % 30.5 - 36.0 % [facility] MCV (RBC) [Entitic vol] 85.6 fL 77.0 - 99.0 fL [facility] Monocytes (Bld) [#/Vol] 0.6 10*3/uL 0.0 - 0.9 10*3/uL [facility] Monocytes/100 WBC (Bld) 9.9 % 5.0 - 13.0 % [facility] Neutrophils (Bld) [#/Vol] 4.4 10*3/uL 1.8 - 7.5 10*3/uL [facility] Neutrophils/100 WBC (Bld) 70.4 % 38.0 - 82.0 % [facility] Nucleated RBC/100 WBC (Bld) [Ratio] 0 % [facility] Platelet mean volume (Bld) [Entitic vol] 10.4 fL 9.0 - 12.7 fL [facility] Platelets (Bld) [#/Vol] 237 10*3/uL 140 - 440 10*3/uL [facility] RBC (Bld) [#/Vol] 2.85 10*6/uL Low 3.80 - 5.2 0 10*6/uL [facility] WBC (Bld) [#/Vol] 6.3 10*3/uL 3.6 - 10.7 10*3/uL [facility] CBC WITH AUTO DIFFERENTIALon 06-18-2025 Basophils (Bld) [#/Vol] 0.1 10*3/uL Normal 0.0-0.2 [facility] Comment on above: Performed By: #### L [id number] ####[employer]er Stock Layer: NATLAIE GARCIA ([id number])[facility] [place] (SBAB)[address] [place] [address] Basophils/100 WBC (Bld) 1.0 % Normal 0.0-2.0 [facility] Comment on above: Performed By: #### L [id number] ####[employer] Stock Layer: NATALIE GARCIA ([id number])[facility] ([facility] [place] [address] Eosinophils (Bld) [#/Vol] 0.2 10*3/uL Normal 0.0-0.5 [facility] Comment on above: Performed By: #### L [id number] ####V[employer] Stock Layer: NATALIE GARCIA ([id number])[facility] [place] (SBHLAB)[address] [place] [address] Eosinophils/100 WBC (Bld) 3.5 % Normal 0.0-6.0 [facility] Comment on above: Performed By: #### L [id number] ####Veneer Stock Layer: NATALIE GARCIA ([id number])[facility] BARBNEW MEX[facility]N (SBHLAB)[address] [place] [address] Erythrocyte distribution width (RBC) [Ratio] 18.2 % High 11.5-15.0 [facility] Comment on above: Performed By: #### L [id number] ####[employer] Stock Layer: NATALIE DENISETRICIA ([id number])[facility] [place] (SBHLAB)[address] Hematocrit (Bld) [Volume fraction] 24.4 % Low 35.0-47.0 [facility] Comment on above: Performed By: #### L [id number] ####[employer] Stock Layer: NATALIE DENISETRICIA ([id number])[facility] [place] (SBHLAB)[address] Hemoglobin (Bld) [Mass/Vol] 7.6 g/dL Low 11.7-16.0 [facility] Comment on above: Performed By: #### L [id number] ####V[employer]er Stock Layer: NATALIE DENISETRICIA ([id number])[facility]BNEW M[facility]N ([facility])[address] IMMATURE GRANS % 0.3 % Normal 0.0-2.0 [facility] Comment on above: Performed By: #### L [id number] ####Veneer Stock Layer: NATALIE DENISETRICIA ([id number])[facility]BNEW [facility]N ([facility])[address] IMMATURE GRANS ABSOLUTE 0.0 10*3/uL Normal <0.1 [facility] Comment on above: Performed By: #### L [id number] ####V[employer]er Stock Layer: NATALIE GARCIA ([id number])[facility] [place] (SBHLAB)[address] [place] [address] Lymphocytes (Bld) [#/Vol] 0.9 10*3/uL Low 1.0-4.3 [facility] Comment on above: Performed By: #### L [id number] ####Veneer Stock Layer: NATALIE GARCIA ([id number])[facility]BNEW M[facility]N (SBHLAB)[address] [place] [address] [place] Lymphocytes/100 WBC (Bld) 14.9 % Low 15.0-45.0 [facility] Comment on above: Performed By: #### L [id number] ####Veneer Stock Layer: NATALIE GARCIA ([id number])[place]N (SBHLAB)[address] MCH (RBC) [Entitic mass] 26.7 pg Normal 26.0-34.0 [facility] Comment on above: Performed By: #### L [id number] ####Veneer Stock Layer: NATALIE GARCIA ([id number])[facility] [place] (SBHLAB)[address] [place] [address] MCHC 31.1 % Normal 30.5-36.0 [facility] Comment on above: Performed By: #### L [id number] ####Veneer Stock Layer: NATALIE GARCIA ([id number])[facility]ENTERJosé Miguel [place] (SBHLAB)[address] [place] [address] MCV (RBC) [Entitic vol] 85.6 fL Normal 77.0-99.0 S [facility] Comment on above: Performed By: #### L [id number] ####Veneer Stock Layer: NATALIE GARCIA ([id number])[facility]ENTERJosé Miguel [place] (SBHLAB)[address] [place] [address] Monocytes (Bld) [#/Vol] 0.6 10*3/uL Normal 0.0-0.9 [facility] Comment on above: Performed By: #### L [id number] ####Veneer Stock Layer: NATALIE GARCIA ([id number])[facility] [place] (SBHLAB)[address] [place] [address] Monocytes/100 WBC (Bld) 9.9 % Normal 5.0-13.0 [facility] Comment on above: Performed By: #### L [id number] ####Veneer Stock Layer: NATALIE GARCIA ([id number])[facility] BARBNEW MEX[facility]N (SBHLAB)[address] [place] [address] NEUTROPHILS ABSOLUTE 4.4 10*3/uL Normal 1.8-7.5 [facility] Comment on above: Performed By: #### L [id number] ####Veneer Stock Layer: NATALIE GARCIA ([id number])[facility] [place] (SBHLAB)[address] Neutrophils/100 WBC (Bld) 70.4 % Normal 38.0-82.0 [facility] Comment on above: Performed By: #### L [id number] ####Veneer Stock Layer: NATALIE GARCIA ([id number])[facility] [place] (SBHLAB)[address] NRBC 0.0 /100 WBCs Normal 0.0-2.0 [facility] Comment on above: Performed By: #### L [id number] ####Veneer Stock Layer: NATALIE GARCIA ([id number])[facility] (SBHLAB)[address] [place] [address] Platelet mean volume (Bld) [Entitic vol] 10.4 fL Normal 9.0-12.7 [facility] Comment on above: Performed By: #### L [id number] ####Veneer Stock Layer: NATALIE GARCIA ([id number])[facility] (SBHLAB)[address] Platelets (Bld) [#/Vol] 237 10*3/uL Normal 140-440 [facility] Comment on above: Performed By: #### L [id number] ####Veneer Stock Layer: NATALIE GARCIA ([id number])[facility] [place] (SBHLAB)[address] [place] [address] [place] RBC (Bld) [#/Vol] 2.85 10*6/uL Low 3.80-5.20 [facility] Comment on above: Performed By: #### L [id number] ####Veneer Stock Layer: NATALIE GARCIA ([id number])[facility]A TAMARNEW MEXICO [facility]ASN (SBHLAB)[address] [place] [address] [place] WBC (Bld) [#/Vol] 6.3 10*3/uL Normal 3.6-10.7 [facility] Comment on above: Performed By: #### L [id number] ####Veneer Stock Layer: NATALIE GARCIA ([id number])[facility]A TAMARNEW MEXICO BEHAVIOR[facility] HE[facility] INSTITUTE AT L[facility] VEGASLaurel (SBHLAB)[address] COMPREHENSIVE METABOLIC PANE Florentin 06-18-2025 Albumin [Mass/Vol] 2.1 g/dL Low 3.4-4.8 [facility] Comment on above: Performed By: #### L [id number] ####V[employer]er Stock Layer: NATALIE GARCIA ([id number])[facility] (SBHLAB)[address] ALP [Catalytic activity/Vol] 122 U/L Normal 40-150 [facility] Comment on above: Performed By: #### L [id number] ####Veneer Stock Layer: NATALIE GARCIA ([id number])[facility] (SBHLAB)[address] ALT [Catalytic activity/Vol] 13 U/L Normal <30 [facility] Comment on above: Performed By: #### L [id number] ####V[employer]er Stock Layer: NATALIE GARCIA ([id number])[facility] [place] (HLAB)[address] [place] [address] Anion gap [Moles/Vol] 11 mmol/L Normal 3-13 [facility] Comment on above: Performed By: #### L [id number] ####Veneer Stock Layer: NATALIE GARCIA ([id number])[facility] (SBHLAB)[address] [place] [address] AST [Catalytic activity/Vol] 24 U/L Normal <34 [facility] Comment on above: Performed By: #### L [id number] ####Veneer Stock Layer: NATALIE GARCIA ([id number])[facility] (SBHLAB)[address] [place] [address] Bilirubin [Mass/Vol] 0.6 mg/dL Normal <1.2 [facility] Comment on above: Performed By: #### L [id number] ####Veneer Stock Layer: NATALIE GARCIA ([id number])[facility] [place] (SBHLAB)[address] Calcium [Mass/Vol] 8.9 mg/dL Normal 8.8-10.0 [facility] Comment on above: Performed By: #### L [id number] ####Veneer Stock Layer: NATALIE GARCIA ([id number])[facility] [place] (SBHLAB)[address] Chloride [Moles/Vol] 98 mmol/L Normal 98-107 [facility] Comment on above: Performed By: #### L [id number] ####Veneer Stock Layer: NATALIE GARCIA ([id number])[facility] [place] (SBHLAB)[address] CO2 [Moles/Vol] 24 mmol/L Normal 23-[address] [facility] Comment on above: Performed By: #### L [id number] ####Veneer Stock Layer: NATALIE GARCIA ([id number])[facility] [place] (SBHLAB)[address] Creatinine [Mass/Vol] 3.41 mg/dL High 0.57-1.11 [facility] Comment on above: Performed By: #### L [id number] ####Veneer Stock Layer: NATALIE GARCIA ([id number])[facility] [place] (SBHLAB)[address] [place] [address] [place] GLOMERULAR FILTRATION RATE ML/MIN/1.73 SQ M.PREDICTED 13.3 mL/min/1.73m*2 Low >60.0 [facility] Comment on above: Result Comment: Calc ulation based on the Chronic Kidney Disease Epidemiology Collaboration (CKD-EPI) equation refit without adjustment for race Performed By: #### L [id number] ####Veneer Stock Layer: NATALIE GARCIA ([id number])[facility] [place] (SBHLAB)[address] [place] [address] [place] Glucose [Mass/Vol] 119 mg/dL High 82-115 [facility] Comment on above: Performed By: #### L [id number] ####Veneer Stock Layer: NATALIE GARCIA ([id number])[facility] [place] (SBHLAB)[address] Potassium [Moles/Vol] 4.4 mmol/L Normal 3.5-5.1 [facility] Comment on above: Result Comment: [facility] potassium values may be up to 0.5 mmol/L lower than serum values. Performed By: #### L [id number] ####Veneer Stock Layer: NATALIE GARCIA ([id number])[facility] [place] (SBHLAB)[address] Protein [Mass/Vol] 6.2 g/dL Low 6.4-8.3 [facility] Comment on above: Performed By: #### L [id number] ####Veneer Stock Layer: NATALIE GARCIA ([id number])[facility] (SBHLAB)[address] Sodium [Moles/Vol] 133 mmol/L Low 136-145 [facility] Comment on above: Performed By: #### L [id number] ####Veneer Stock Layer: NATALIE GARCIA ([id number])[facility] [place] (SBHLAB)[address] Urea nitrogen [Mass/Vol] 46 mg/dL High 9-23 [facility] Comment on above: Performed By: #### L [id number] ####Veneer Stock Layer: NATALIE GARCIA ([id number])[facility] (SBHLAB)[address] Comprehensive metabolic 1998 panelon 06-18-2025 Albumin [Mass/Vol] 2.1 g/dL Low 3.4 - 4.8 g/dL [facility] ALP [Catalytic activity/Vol] 122 U/L 40 - 150 U/L [facility] ALT [Catalytic activity/Vol] 13 U/L NINF - 30 U/L [facility] Anion gap [Moles/Vol] 11 mmol/L 3 - 13 mmol/L [facility] AST [Catalytic activity/Vol] 24 U/L NINF - 34 U/L [facility] Bilirubin [Mass/Vol] 0.6 mg/dL NINF - 1.2 mg/dL [facility] Calcium [Mass/Vol] 8.9 mg/dL 8.8 - 10. 0 mg/dL [facility] Chloride [Moles/Vol] 98 mmol/L 98 - 10 7 mmol/L [facility] CO2 [Moles/Vol] 24 mmol/L 23 - 31 mmol/L [facility] Creatinine [Mass/Vol] 3.41 mg/dL High 0.57 - 1.11 mg/dL [facility] GFR/1.73 sq M.predicted (S/P/Bld) [Vol rate/Area] 13.3 mL/min Low - PINF [facility] Glucose [Mass/Vol] 119 mg/dL High 82 - 115 mg/dL [facility] Interpretation and review of laboratory results Abnormal [facility] Potassium [Moles/Vol] 4.4 mmol/L 3.5 - 5.1 mmol/L [facility] Protein [Mass/Vol] 6.2 g/dL Low 6.4 - 8.3 g/dL [facility] Sodium [Moles/Vol] 133 mmol/L Low 136 - 145 mmol/L [facility] Urea nitrogen [Mass/Vol] 46 mg/dL High 9 - 23 mg/dL [facility] Laboratory - Chemistry and C hemistry - challengeon 06-18-2025 Glucose [Mass/Vol] 101 mg/dL High 70 - 100 mg/dL [facility] Glucose [Mass/Vol] 98 mg/dL 70 - 100 mg/dL [facility] Glucose [Mass/Vol] 123 mg/dL High 70 - 100 mg/dL [facility] No Panel Informationon 06-18 Interpretation and review of laboratory results Abnormal [facility] Interpretation and review of laboratory results Normal [facility] Interpretation and review of laboratory results Abnormal [facility] Nursing Noteon 06-18-2025 Nursing Note Normal [facility] Progress Noteon 06-18-2025 Progress [facility] Progress [facility] Progress [facility] Progress Note Normal [facility] CBC W Auto Differential pane l (Bld)on 06-17-2025 Basophils (Bld) [#/Vol] 0.1 10*3/uL 0.0 - 0.2 10*3/uL [facility] Basophils/100 WBC (Bld) 0.8 % 0.0 - 2.0 % [facility] Eosinophils (Bld) [#/Vol] 0.2 10*3/uL 0.0 - 0.5 10*3/uL [facility] Eosinophils/100 WBC (Bld) 1.9 % 0.0 - 6.0 % [facility] Erythrocyte distribution width (RBC) [Ratio] 17.8 % High 11.5 - 15.0 % [facility] Hematocrit (Bld) [Volume fraction] 26.6 % Low 35.0 - 47.0 % [facility] Hemoglobin (Bld) [Mass/Vol] 8.4 g/dL Low 11.7 - 16.0 g/dL [facility] Immature granulocytes (Bld) [#/Vol] 0 10*3/uL NINF - 0.1 10*3/uL [facility] Immature granulocytes/100 WBC (Bld) 0.4 % 0.0 - 2.0 % [facility] Interpretation and review of laboratory results Abnormal [facility] Lymphocytes (Bld) [#/Vol] 1.2 10*3/uL 1.0 - 4.3 10*3/uL [facility] Lymphocytes/100 WBC (Bld) 15.9 % 15.0 - 45.0 % [facility] MCH (RBC) [Entitic mass] 26.7 pg 26.0 - 34.0 pg [facility] MCHC (RBC) [Mass/Vol] 31.6 % 30.5 - 36.0 % [facility] MCV (RBC) [Entitic vol] 84.4 fL 77.0 - 99.0 fL [facility] Monocytes (Bld) [#/Vol] 0.8 10*3/uL 0.0 - 0.9 10*3/uL [facility] Monocytes/100 WBC (Bld) 9.6 % 5.0 - 13.0 % [facility] Neutrophils (Bld) [#/Vol] 5.6 10*3/uL 1.8 - 7.5 10*3/uL [facility] Neutrophils/100 WBC (Bld) 71.4 % 38.0 - 82.0 % [facility] Nucleated RBC/100 WBC (Bld) [Ratio] 0 % [facility] Platelet mean volume (Bld) [Entitic vol] 9.6 fL 9.0 - 12.7 fL [facility] Platelets (Bld) [#/Vol] 230 10*3/uL 140 - 440 10*3/uL [facility] RBC (Bld) [#/Vol] 3.15 10*6/uL Low 3.80 - 5.2 0 10*6/uL [facility] WBC (Bld) [#/Vol] 7.8 10*3/uL 3.6 - 10.7 10*3/uL [facility] CBC WITH AUTO DIFFERENTIALon 06-17-2025 Basophils (Bld) [#/Vol] 0.1 10*3/uL Normal 0.0-0.2 [facility] Comment on above: Performed By: #### L [id number] ####Veneer Stock Layer: NATALIE GARCIA ([id number])[facility]ENTER[facility] (SBHLAB)[address] Basophils/100 WBC (Bld) 0.8 % Normal 0.0-2.0 [facility] Comment on above: Performed By: #### L [id number] ####Veneer Stock Layer: NATALIE GARCIA ([id number])[facility] (SBHLAB)[address] Eosinophils (Bld) [#/Vol] 0.2 10*3/uL Normal 0.0-0.5 [facility] Comment on above: Performed By: #### L [id number] ####V[employer]er Stock Layer: NATALIE GARCIA ([id number])[facility] [place] (SBHLAB)[address] [place] [address] [place] Eosinophils/100 WBC (Bld) 1.9 % Normal 0.0-6.0 [facility] Comment on above: Performed By: #### L [id number] ####Veneer Stock Layer: NATALIE GARCIA ([id number])[facility] [place] (SBHLAB)[address] Erythrocyte distribution width (RBC) [Ratio] 17.8 % High 11.5-15.0 [facility] Comment on above: Performed By: #### L [id number] ####Veneer Stock Layer: NATALIE GARCIA ([id number])[facility]A BARBNEW MEXICO [facility]ASN (SBHLAB)[address] Hematocrit (Bld) [Volume fraction] 26.6 % Low 35.0-47.0 [facility] Comment on above: Performed By: #### L [id number] ####Veneer Stock Layer: NATALIE GARCIA ([id number])[facility] (SBHLAB)[address] Hemoglobin (Bld) [Mass/Vol] 8.4 g/dL Low 11.7-16.0 [facility] Comment on above: Performed By: #### L [id number] ####Veneer Stock Layer: NATALIE GARCIA ([id number])[facility] BARBNEW MEXICO [facility]N (SBHLAB)[address] IMMATURE GRANS % 0.4 % Normal 0.0-2.0 [facility] Comment on above: Performed By: #### L [id number] ####Veneer Stock Layer: NATALIE GARCIA ([id number])[facility] (SB[facility]AB)[address] IMMATURE GRANS ABSOLUTE 0.0 10*3/uL Normal <0.1 [facility] Comment on above: Performed By: #### L [id number] ####Veneer Stock Layer: NATALIE GARCIA ([id number])[facility] [place] (SBHLAB)[address] [place] [address] [place] Lymphocytes (Bld) [#/Vol] 1.2 10*3/uL Normal 1.0-4.3 [facility] Comment on above: Performed By: #### L [id number] ####Veneer Stock Layer: NATALIE GARCIA ([id number])[facility] (SBHLAB)[address] Lymphocytes/100 WBC (Bld) 15.9 % Normal 15.0-45.0 [facility] Comment on above: Performed By: #### L [id number] ####Veneer Stock Layer: NATALIE GARCIA ([id number])[place]OINA MONTENEGR[place] (SBHLAB)[address] MCH (RBC) [Entitic mass] 26.7 pg Normal 26.0-34.0 [facility] Comment on above: Performed By: #### L [id number] ####Veneer Stock Layer: NATALIE GARCIA ([id number])[facility] CENTERJosé Miguel REHMANNEW MEXICO [facility] L[facility]N (SBHLAB)[address] MCHC 31.6 % Normal 30.5-36.0 [facility] Comment on above: Performed By: #### L [id number] ####Veneer Stock Layer: NATALIE GARCIA ([id number])[facility]ENTERJosé Miguel REHMANNEW MEXICO BE[facility] AT L[facility]ASN (SBHLAB)[address] MCV (RBC) [Entitic vol] 84.4 fL Normal 77.0-99.0 [facility] Comment on above: Performed By: #### L [id number] ####Veneer Stock Layer: NATALIE GARCIA ([id number])[facility] CENTERJosé Miguel BARBNEW MEXICO BEHAVIORAL HE[facility] INSTITUTE AT L[facility] VEGASN (SBHLAB)[address] [place] [address] Monocytes (Bld) [#/Vol] 0.8 10*3/uL Normal 0.0-0.9 [facility] Comment on above: Performed By: #### L [id number] ####V[employer]er Stock Layer: NATALIE GARCIA ([id number])[facility] CENTERJosé Miguel [place] (SBHLAB)[address] [place] [address] [place] Monocytes/100 WBC (Bld) 9.6 % Normal 5.0-13.0 [facility] Comment on above: Performed By: #### L [id number] ####Veneer Stock Layer: NATALIE GARCIA ([id number])[facility]A BARBNEW MEXICO [facility]N (SBHLAB)[address] NEUTROPHILS ABSOLUTE 5.6 10*3/uL Normal 1.8-7.5 [facility] Comment on above: Performed By: #### L [id number] ####V[employer]er Stock Layer: NATALIE GARCIA ([id number])[facility] [place] (SBHLAB)[address] Neutrophils/100 WBC (Bld) 71.4 % Normal 38.0-82.0 [facility] Comment on above: Performed By: #### L [id number] ####V[employer]er Stock Layer: NATALIE GARCIA ([id number])[facility] [place] (SBHLAB)[address] NRBC 0.0 /100 WBCs Normal 0.0-2.0 [facility] Comment on above: Performed By: #### L [id number] ####V[employer]er Stock Layer: NATALIE GARCIA ([id number])[facility] [place] (SBHLAB)[address] Platelet mean volume (Bld) [Entitic vol] 9.6 fL Normal 9.0-12.7 [facility] Comment on above: Performed By: #### L [id number] ####[employer]er [employer] Layer: NATALIE GARCIA ([id number])[facility] [place] (SBHLAB)[address] Platelets (Bld) [#/Vol] 230 10*3/uL Normal 140-440 [facility] Comment on above: Performed By: #### L [id number] ####[employer] Layer: NATALIE GARCIA ([id number])[facility] [place] (SBHLAB)[address] [place] [address] [place] RBC (Bld) [#/Vol] 3.15 10*6/uL Low 3.80-5.20 [facility] Comment on above: Performed By: #### L [id number] ####[employer] Layer: NATALIE GARCIA ([id number])[facility] [place] (SB[facility])[address] WBC (Bld) [#/Vol] 7.8 10*3/uL Normal 3.6-10.7 [facility] Comment on above: Performed By: #### L [id number] ####[employer]: NATALIE GARCIA ([id number])[facility] [place] ([facility])[address] COMPREHENSIVE METABOLIC PANE Florentin 06-17-2025 Albumin [Mass/Vol] 2.3 g/dL Low 3.4-4.8 [facility] Comment on above: Performed By: #### L [id number] ####[employer]: NATALIE GARCIA ([id number])[facility] [place] ([facility])[address] ALP [Catalytic activity/Vol] 133 U/L Normal 40-150 [facility] Comment on above: Performed By: #### L [id number] ####[employer]: NATALIE GARCIA ([id number])[facility] [place] ([facility])[address] ALT [Catalytic activity/Vol] 14 U/L Normal <30 [facility] Comment on above: Performed By: #### L [id number] ####[employer]: NATALIE GARCIA ([id number])[facility] [place] ([facility])[address] Anion gap [Moles/Vol] 12 mmol/L Normal 3-13 [facility] Comment on above: Performed By: #### L [id number] ####[employer]: NATALIE GARCIA ([id number])[facility] [place] ([facility])[address] AST [Catalytic activity/Vol] 28 U/L Normal <34 [facility] Comment on above: Performed By: #### L [id number] ####[employer]: NATALIE GARCIA ([id number])[facility] [place] ([facility])[address] Bilirubin [Mass/Vol] 0.7 mg/dL Normal <1.2 [facility] Comment on above: Performed By: #### L [id number] ####[employer]: NATALIE GARCIA ([id number])[facility] [place] ([facility])[address] Calcium [Mass/Vol] 9.3 mg/dL Normal 8.8-10.0 [facility] Comment on above: Performed By: #### L [id number] ####[employer]: NATALIE GARCIA ([id number])[facility] [place] ([facility])[address] Chloride [Moles/Vol] 99 mmol/L Normal 98-107 [facility] Comment on above: Performed By: #### L [id number] ####[employer]: NATALIE GARCIA ([id number])[facility] [place] ([facility])[address] [address]RE[address] CO2 [Moles/Vol] 24 mmol/L Normal 23-[address] [facility] Comment on above: Performed By: #### L [id number] ####Veneer Stock Layer: NATALIE GARCIA ([id number])[facility] [place] (SBHLAB)[address] Creatinine [Mass/Vol] 2.72 mg/dL High 0.57-1.11 [facility] Comment on above: Performed By: #### L [id number] ####Veneer Stock Layer: NATALIE GARCIA ([id number])[facility] [place] (SBHLAB)[address] GLOMERULAR FILTRATION RATE ML/MIN/1.73 SQ M.PREDICTED 17.5 mL/min/1.73m*2 Low >60.0 [facility] Comment on above: Result Comment: Calc ulation based on the Chronic Kidney Disease Epidemiology Collaboration (CKD-EPI) equation refit without adjustment for race Performed By: #### L [id number] ####Veneer Stock Layer: NATALIE GARCIA ([id number])[facility] [place] (SBHLAB)[address] Glucose [Mass/Vol] 62 mg/dL Low 82-115 [facility] Comment on above: Performed By: #### L [id number] ####Veneer Stock Layer: NATALIE GARCIA ([id number])[facility] (SBHLAB)[address] Potassium [Moles/Vol] 4.1 mmol/L Normal 3.5-5.1 [facility] Comment on above: Result Comment: [facility] potassium values may be up to 0.5 mmol/L lower than serum values. Performed By: #### L [id number] ####Veneer Stock Layer: NATALIE GARCIA ([id number])[facility] ([facility])[address] Protein [Mass/Vol] 6.8 g/dL Normal 6.4-8.3 [facility] Comment on above: Performed By: #### L [id number] ####Veneer Stock Layer: NATALIE GARCIA ([id number])[facility] Sodium [Moles/Vol] 135 mmol/L Low 136-145 [facility] Comment on above: Performed By: #### L [id number] ####Veneer Stock Layer: NATALIE GARCIA ([id number])[facility] ([facility] [place] [address] Urea nitrogen [Mass/Vol] 33 mg/dL High 9-23 [facility] Comment on above: Performed By: #### L [id number] ####Veneer Stock Layer: NATALIE GARCIA ([id number])[facility] (HLAB)[address] Comprehensive metabolic 1998 panelon 06-17-2025 Albumin [Mass/Vol] 2.3 g/dL Low 3.4 - 4.8 g/dL [facility] ALP [Catalytic activity/Vol] 133 U/L 40 - 150 U/L [facility] ALT [Catalytic activity/Vol] 14 U/L NINF - 30 U/L [facility] Anion gap [Moles/Vol] 12 mmol/L 3 - 13 mmol/L [facility] AST [Catalytic activity/Vol] 28 U/L NINF - 34 U/L [facility] Bilirubin [Mass/Vol] 0.7 mg/dL NINF - 1.2 mg/dL [facility] Calcium [Mass/Vol] 9.3 mg/dL 8.8 - 10. 0 mg/dL [facility] Chloride [Moles/Vol] 99 mmol/L 98 - 10 7 mmol/L [facility] CO2 [Moles/Vol] 24 mmol/L 23 - 31 mmol/L [facility] Creatinine [Mass/Vol] 2.72 mg/dL High 0.57 - 1.11 mg/dL [facility] GFR/1.73 sq M.predicted (S/P/Bld) [Vol rate/Area] 17.5 mL/min Low - PINF [facility] Glucose [Mass/Vol] 62 mg/dL Low 82 - 115 mg/dL [facility] Interpretation and review of laboratory results Abnormal [facility] Potassium [Moles/Vol] 4.1 mmol/L 3.5 - 5.1 mmol/L [facility] Protein [Mass/Vol] 6.8 g/dL 6.4 - 8.3 g/dL [facility] Sodium [Moles/Vol] 135 mmol/L Low 136 - 145 mmol/L [facility] Urea nitrogen [Mass/Vol] 33 mg/dL High 9 - 23 mg/dL [facility] Laboratory - Chemistry and C hemistry - challengeon 06-17-2025 Glucose [Mass/Vol] 135 mg/dL High 70 - 100 mg/dL [facility] Glucose [Mass/Vol] 118 mg/dL High 70 - 100 mg/dL [facility] Glucose [Mass/Vol] 106 mg/dL High 70 - 100 mg/dL [facility] Glucose [Mass/Vol] 74 mg/dL 70 - 100 mg/dL [facility] No Panel Informationon 06-17 Interpretation and review of laboratory results Abnormal [facility] Interpretation and review of laboratory results Abnormal [facility] Interpretation and review of laboratory results Abnormal [facility] Interpretation and review of laboratory results Normal [facility] Progress Noteon 06-17-2025 Progress Note Normal [facility] Progress Note Normal [facility] Progress Note Normal [facility] CBC W Auto Differential pane l (Bld)on 06-16-2025 Basophils (Bld) [#/Vol] 0 10*3/uL 0.0 - 0.2 10*3/uL [facility] Basophils/100 WBC (Bld) 0.6 % 0.0 - 2.0 % [facility] Eosinophils (Bld) [#/Vol] 0.2 10*3/uL 0.0 - 0.5 10*3/uL [facility] Eosinophils/100 WBC (Bld) 2.7 % 0.0 - 6.0 % [facility] Erythrocyte distribution width (RBC) [Ratio] 18.2 % High 11.5 - 15.0 % [facility] Hematocrit (Bld) [Volume fraction] 24.7 % Low 35.0 - 47.0 % [facility] Hemoglobin (Bld) [Mass/Vol] 7.6 g/dL Low 11.7 - 16.0 g/dL [facility] SCVNGR Immature granulocytes (Bld) [#/Vol] 0 10*3/uL NINF - 0.1 10*3/uL [facility] Immature granulocytes/100 WBC (Bld) 0.5 % 0.0 - 2.0 % [facility] Interpretation and review of laboratory results Abnormal [facility] Lymphocytes (Bld) [#/Vol] 1 10*3/uL 1.0 - 4.3 10*3/uL [facility] Lymphocytes/100 WBC (Bld) 16.5 % 15.0 - 45.0 % [facility] MCH (RBC) [Entitic mass] 26.5 pg 26.0 - 34.0 pg [facility] MCHC (RBC) [Mass/Vol] 30.8 % 30.5 - 36.0 % [facility] MCV (RBC) [Entitic vol] 86.1 fL 77.0 - 99.0 fL [facility] Monocytes (Bld) [#/Vol] 0.5 10*3/uL 0.0 - 0.9 10*3/uL [facility] Monocytes/100 WBC (Bld) 7.9 % 5.0 - 13.0 % [facility] SCVNGR Neutrophils (Bld) [#/Vol] 4.5 10*3/uL 1.8 - 7.5 10*3/uL [facility] Neutrophils/100 WBC (Bld) 71.8 % 38.0 - 82.0 % [facility] Nucleated RBC/100 WBC (Bld) [Ratio] 0 % [facility] Platelet mean volume (Bld) [Entitic vol] 9.9 fL 9.0 - 12.7 fL [facility] Platelets (Bld) [#/Vol] 217 10*3/uL 140 - 440 10*3/uL [facility] RBC (Bld) [#/Vol] 2.87 10*6/uL Low 3.80 - 5.2 0 10*6/uL [facility] WBC (Bld) [#/Vol] 6.2 10*3/uL 3.6 - 10.7 10*3/uL [facility] CBC WITH AUTO DIFFERENTIALon 06-16-2025 Basophils (Bld) [#/Vol] 0.0 10*3/uL Normal 0.0-0.2 [facility] Comment on above: Performed By: #### L [id number] ####Veneer Stock Layer: NATALIE GARCIA ([id number])[facility] (SBAB)[address] Basophils/100 WBC (Bld) 0.6 % Normal 0.0-2.0 [facility] Comment on above: Performed By: #### L [id number] ####Veneer Stock Layer: NATALIE GARCIA ([id number])[facility] (SBAB)[address] [place] [address] [place] Eosinophils (Bld) [#/Vol] 0.2 10*3/uL Normal 0.0-0.5 [facility] Comment on above: Performed By: #### L [id number] ####Veneer Stock Layer: NATALIE GARCIA ([id number])[facility] (SBHLAB)[address] [place] [address] [place] Eosinophils/100 WBC (Bld) 2.7 % Normal 0.0-6.0 [facility] Comment on above: Performed By: #### L [id number] ####Veneer Stock Layer: NATALIE [id number])[facility] (SBAB)[address] Erythrocyte distribution width (RBC) [Ratio] 18.2 % High 11.5-15.0 [facility] Comment on above: Performed By: #### L [id number] ####Veneer Stock Layer: NATALIE GARCIA ([id number])[facility] Hematocrit (Bld) [Volume fraction] 24.7 % Low 35.0-47.0 [facility] Comment on above: Performed By: #### L [id number] ####Veneer Stock Layer: NATALIE GARCIA ([id number])[facility] ([facility])[address] [place] [address] Hemoglobin (Bld) [Mass/Vol] 7.6 g/dL Low 11.7-16.0 [facility] Comment on above: Performed By: #### L [id number] ####Veneer Stock Layer: NATALIE GARCIA ([id number])[facility] ([facility])[address] [place] [address] IMMATURE GRANS % 0.5 % Normal 0.0-2.0 [facility] Comment on above: Performed By: #### L [id number] ####Veneer Stock Layer: NATALIE GARCIA ([id number])[facility] ([facility])[address] [place] [address] IMMATURE GRANS ABSOLUTE 0.0 10*3/uL Normal <0.1 [facility] Comment on above: Performed By: #### L [id number] ####Veneer Stock Layer: NATALIE GARCIA ([id number])[facility] ([facility])[address] [place] [address] Lymphocytes (Bld) [#/Vol] 1.0 10*3/uL Normal 1.0-4.3 [facility] Comment on above: Performed By: #### L [id number] ####Veneer Stock Layer: NATALIE GARCIA ([id number])[facility] [place] (SBHLAB)[address] Lymphocytes/100 WBC (Bld) 16.5 % Normal 15.0-45.0 [facility] Comment on above: Performed By: #### L [id number] ####Veneer Stock Layer: NATALIE GARCIA ([id number])[facility] (SBHLAB)[address] MCH (RBC) [Entitic mass] 26.5 pg Normal 26.0-34.0 [facility] Comment on above: Performed By: #### L [id number] ####Veneer Stock Layer: NATALIE GARCIA ([id number])[facility] (SBHLAB)[address] [place] [address] MCHC 30.8 % Normal 30.5-36.0 [facility] Comment on above: Performed By: #### L [id number] ####Veneer Stock Layer: NATALIE GARCIA ([id number])[facility] (SBHLAB)[address] [place] [address] MCV (RBC) [Entitic vol] 86.1 fL Normal 77.0-99.0 [facility] Comment on above: Performed By: #### L [id number] ####Veneer Stock Layer: NATALIE GARCIA ([id number])[facility]ENTERJosé Miguel BARBNEW MEX[facility]ASLa[facility] (SBHLAB)[address] [place] [address] Monocytes (Bld) [#/Vol] 0.5 10*3/uL Normal 0.0-0.9 [facility] Comment on above: Performed By: #### L [id number] ####Veneer Stock Layer: NATALIE GARCIA ([id number])[facility] (SBHLAB)[address] Monocytes/100 WBC (Bld) 7.9 % Normal 5.0-13.0 [facility] Comment on above: Performed By: #### L [id number] ####Veneer Stock Layer: NATALIE GARCIA ([id number])[facility] [place] (SBHLAB)[address] NEUTROPHILS ABSOLUTE 4.5 10*3/uL Normal 1.8-7.5 [facility] Comment on above: Performed By: #### L [id number] ####Veneer Stock Layer: NATALIE GARCIA ([id number])[facility] [place] (SBHLAB)[address] Neutrophils/100 WBC (Bld) 71.8 % Normal 38.0-82.0 [facility] Comment on above: Performed By: #### L [id number] ####Veneer Stock Layer: NATALIE GARCIA ([id number])[facility] [place] (SBHLAB)[address] NRBC 0.0 /100 WBCs Normal 0.0-2.0 [facility] Comment on above: Performed By: #### L [id number] ####Veneer Stock Layer: NATALIE GARCIA ([id number])[facility] [place] (SBHLAB)[address] Platelet mean volume (Bld) [Entitic vol] 9.9 fL Normal 9.0-12.7 [facility] Comment on above: Performed By: #### L [id number] ####Veneer Stock Layer: NATALIE GARCIA ([id number])[facility] [place] (SBHLAB)[address] [place] [address] [place] Platelets (Bld) [#/Vol] 217 10*3/uL Normal 140-440 [facility] Comment on above: Performed By: #### L [id number] ####Veneer Stock Layer: NATALIE GARCIA ([id number])[facility] [place] (SBHLAB)[address] [place] [address] [place] RBC (Bld) [#/Vol] 2.87 10*6/uL Low 3.80-5.20 [facility] Comment on above: Performed By: #### L [id number] ####Veneer Stock Layer: NATALIE GARCIA ([id number])[facility] [place] (SBHLAB)[address] WBC (Bld) [#/Vol] 6.2 10*3/uL Normal 3.6-10.7 [facility] Comment on above: Performed By: #### L [id number] ####Veneer Stock Layer: NATALIE GARCIA ([id number])[facility] [place] (SBHLAB)[address] COMPREHENSIVE METABOLIC PANE Florentin 06-16-2025 Albumin [Mass/Vol] 2.2 g/dL Low 3.4-4.8 [facility] Comment on above: Performed By: #### L [id number] ####Veneer Stock Layer: NATALIE GARCIA ([id number])[facility] [place] (SBHLAB)[address] ALP [Catalytic activity/Vol] 127 U/L Normal 40-150 [facility] Comment on above: Performed By: #### L [id number] ####Veneer Stock Layer: NATALIE GARCIA ([id number])[facility] [place] (SBHLAB)[address] ALT [Catalytic activity/Vol] 12 U/L Normal <30 [facility] Comment on above: Performed By: #### L [id number] ####Veneer Stock Layer: NATALIE GARCIA ([id number])[facility] [place] (SBHLAB)[address] Anion gap [Moles/Vol] 10 mmol/L Normal 3-13 [facility] Comment on above: Performed By: #### L [id number] ####Veneer Stock Layer: NATALIE GARCIA ([id number])[facility] [place] (SBHLAB)[address] AST [Catalytic activity/Vol] 26 U/L Normal <34 [facility] Comment on above: Performed By: #### L [id number] ####Veneer Stock Layer: NATALIE GARCIA ([id number])[facility] [place] (SBHLAB)[address] Bilirubin [Mass/Vol] 0.5 mg/dL Normal <1.2 [facility] Comment on above: Performed By: #### L [id number] ####Veneer Stock Layer: NATALIE GARCIA ([id number])[facility]ENTERJos[facility] Miguel [place] (SBHLAB)[address] Calcium [Mass/Vol] 8.6 mg/dL Low 8.8-10.0 [facility] Comment on above: Performed By: #### L [id number] ####Veneer Stock Layer: NATALIE GARCIA ([id number])[facility]NEW [facility] (SBHLAB)[address] Chloride [Moles/Vol] 100 mmol/L Normal 98-107 [facility] Comment on above: Performed By: #### L [id number] ####Veneer Stock Layer: NATALIE GARCIA ([id number])[facility] [place] (SBHLAB)[address] CO2 [Moles/Vol] 27 mmol/L Normal 23-[address] [facility] Comment on above: Performed By: #### L [id number] ####Veneer Stock Layer: NATALIE GARCIA ([id number])[facility] (SBHLAB)[address] Creatinine [Mass/Vol] 1.89 mg/dL High 0.57-1.11 [facility] Comment on above: Performed By: #### L [id number] ####Veneer Stock Layer: NATALIE GARCIA ([id number])[facility]BNEW [facility] (SBHLAB)[address] [place] [address] [place] GLOMERULAR FILTRATION RATE ML/MIN/1.73 SQ M.PREDICTED 27.1 mL/min/1.73m*2 Low >60.0 [facility] Comment on above: Result Comment: Calc ulation based on the Chronic Kidney Disease Epidemiology Collaboration (CKD-EPI) equation refit without adjustment for race Performed By: #### L [id number] ####Veneer Stock Layer: NATALIE GARCIA ([id number])[facility]ENTERJosé Miguel [place] (SBHLAB)[address] Glucose [Mass/Vol] 131 mg/dL High 82-115 [facility] Comment on above: Performed By: #### L [id number] ####Veneer Stock Layer: NATALIE GARCIA ([id number])[facility]ENTERJosé Miguel [place] (SBHLAB)[address] Potassium [Moles/Vol] 4.4 mmol/L Normal 3.5-5.1 [facility] Comment on above: Result Comment: [facility] potassium values may be up to 0.5 mmol/L lower than serum values. Performed By: #### L [id number] ####Veneer Stock Layer: NATALIE GARCIA ([id number])[facility]ENTERJosé Miguel [place] (SBHLAB)[address] Protein [Mass/Vol] 6.3 g/dL Low 6.4-8.3 [facility] Comment on above: Performed By: #### L [id number] ####Veneer Stock Layer: NATALIE GARCIA ([id number])[facility] (SBHLAB)[address] Sodium [Moles/Vol] 137 mmol/L Normal 136-145 [facility] Comment on above: Performed By: #### L [id number] ####Veneer Stock Layer: NATALIE GARCIA ([id number])[facility] ([facility])[address] Urea nitrogen [Mass/Vol] 20 mg/dL Normal 9-23 [facility] Comment on above: Performed By: #### L [id number] ####Veneer Stock Layer: NATALIE GARCIA ([id number])[facility] (SBHLAB)[address] Comprehensive metabolic 1998 panelon 06-16-2025 Albumin [Mass/Vol] 2.2 g/dL Low 3.4 - 4.8 g/dL [facility] ALP [Catalytic activity/Vol] 127 U/L 40 - 150 U/L [facility] ALT [Catalytic activity/Vol] 12 U/L [facility] - 30 U/L [facility] Anion gap [Moles/Vol] 10 mmol/L 3 - 13 mmol/L [facility] AST [Catalytic activity/Vol] 26 U/L NINF - 34 U/L [facility] Bilirubin [Mass/Vol] 0.5 mg/dL NINF - 1.2 mg/dL [facility] Calcium [Mass/Vol] 8.6 mg/dL Low 8.8 - 10. 0 mg/dL [facility] Chloride [Moles/Vol] 100 mmol/L 98 - 10 7 mmol/L [facility] CO2 [Moles/Vol] 27 mmol/L 23 - 31 mmol/L [facility] Creatinine [Mass/Vol] 1.89 mg/dL High 0.57 - 1.11 mg/dL [facility] GFR/1.73 sq M.predicted (S/P/Bld) [Vol rate/Area] 27.1 mL/min Low - PINF [facility] Glucose [Mass/Vol] 131 mg/dL High 82 - 115 mg/dL [facility] Interpretation and review of laboratory results Abnormal [facility] Potassium [Moles/Vol] 4.4 mmol/L 3.5 - 5.1 mmol/L [facility] Protein [Mass/Vol] 6.3 g/dL Low 6.4 - 8.3 g/dL [facility] Sodium [Moles/Vol] 137 mmol/L 136 - 145 mmol/L [facility] Urea nitrogen [Mass/Vol] 20 mg/dL 9 - 23 mg/dL [facility] Laboratory - Chemistry and C hemistry - challengeon 06-16-2025 Glucose [Mass/Vol] 138 mg/dL High 70 - 100 mg/dL [facility] Glucose [Mass/Vol] 134 mg/dL High 70 - 100 mg/dL [facility] Glucose [Mass/Vol] 149 mg/dL High 70 - 100 mg/dL [facility] Glucose [Mass/Vol] 142 mg/dL High 70 - 100 mg/dL [facility] Glucose [Mass/Vol] 141 mg/dL High 70 - 100 mg/dL [facility] No Panel Informationon 06-16 Interpretation and review of laboratory results Abnormal [facility] Interpretation and review of laboratory results Abnormal [facility] Interpretation and review of laboratory results Abnormal [facility] Interpretation and review of laboratory results Abnormal [facility] Interpretation and review of laboratory results Abnormal [facility] Progress Noteon 06-16-2025 Progress [facility] Progress Note Normal [facility] Progress Note Normal [facility] [id number] 06-15-2025 [id number] Normal [facility] [phone] Normal [facility] Bacteria identified Anaer cx Nom (Unsp spec)on 06-15-2025 Interpretation and review of laboratory results Normal [facility] CBC W Auto Differential pane l (Bld)on 06-15-2025 Basophils (Bld) [#/Vol] 0.1 10*3/uL 0.0 - 0.2 10*3/uL [facility] Basophils/100 WBC (Bld) 0.8 % 0.0 - 2.0 % [facility] Eosinophils (Bld) [#/Vol] 0.1 10*3/uL 0.0 - 0.5 10*3/uL [facility] Eosinophils/100 WBC (Bld) 2.1 % 0.0 - 6.0 % [facility] Erythrocyte distribution width (RBC) [Ratio] 17.7 % High 11.5 - 15.0 % [facility] Hematocrit (Bld) [Volume fraction] 25.7 % Low 35.0 - 47.0 % [facility] Hemoglobin (Bld) [Mass/Vol] 7.9 g/dL Low 11.7 - 16.0 g/dL [facility] Immature granulocytes (Bld) [#/Vol] 0 10*3/uL NINF - 0.1 10*3/uL [facility] Immature granulocytes/100 WBC (Bld) 0.3 % 0.0 - 2.0 % [facility] Interpretation and review of laboratory results Abnormal [facility] Lymphocytes (Bld) [#/Vol] 1.3 10*3/uL 1.0 - 4.3 10*3/uL [facility] Lymphocytes/100 WBC (Bld) 21.3 % 15.0 - 45.0 % [facility] MCH (RBC) [Entitic mass] 26.2 pg 26.0 - 34.0 pg [facility] MCHC (RBC) [Mass/Vol] 30.7 % 30.5 - 36.0 % [facility] MCV (RBC) [Entitic vol] 85.4 fL 77.0 - 99.0 fL [facility] Monocytes (Bld) [#/Vol] 0.5 10*3/uL 0.0 - 0.9 10*3/uL [facility] Monocytes/100 WBC (Bld) 8.6 % 5.0 - 13.0 % [facility] Neutrophils (Bld) [#/Vol] 4.1 10*3/uL 1.8 - 7.5 10*3/uL [facility] Neutrophils/100 WBC (Bld) 66.9 % 38.0 - 82.0 % [facility] Nucleated RBC/100 WBC (Bld) [Ratio] 0 % [facility] Platelet mean volume (Bld) [Entitic vol] 9.7 fL 9.0 - 12.7 fL [facility] Platelets (Bld) [#/Vol] 233 10*3/uL 140 - 440 10*3/uL [facility] RBC (Bld) [#/Vol] 3.01 10*6/uL Low 3.80 - 5.2 0 10*6/uL [facility] WBC (Bld) [#/Vol] 6.1 10*3/uL 3.6 - 10.7 10*3/uL [facility] CBC WITH AUTO DIFFERENTIALon 06-15-2025 Basophils (Bld) [#/Vol] 0.1 10*3/uL Normal 0.0-0.2 [facility] Comment on above: Performed By: #### L [id number] ####[employer]er Stock Layer: NATALIE GARCIA ([id number])[facility] (SBHLAB)[address] Basophils/100 WBC (Bld) 0.8 % Normal 0.0-2.0 [facility] Comment on above: Performed By: #### L [id number] ####[employer]er Stock Layer: NATALIE GARCIA ([id number])[facility] (SBHLAB)[address] Eosinophils (Bld) [#/Vol] 0.1 10*3/uL Normal 0.0-0.5 [facility] Comment on above: Performed By: #### L [id number] ####Veneer Stock Layer: NATALIE GARCIA ([id number])[facility] [place] [facility] [place] [address] Eosinophils/100 WBC (Bld) 2.1 % Normal 0.0-6.0 [facility] Comment on above: Performed By: #### L [id number] ####[employer]er Stock Layer: NATALIE GARCIA ([id number])[facility] ([facility])[address] [place] [address] Erythrocyte distribution width (RBC) [Ratio] 17.7 % High 11.5-15.0 [facility] Comment on above: Performed By: #### L [id number] ####[employer]: NATALIE GARCIA ([id number])[facility] ([facility])[address] [place] [address] Hematocrit (Bld) [Volume fraction] 25.7 % Low 35.0-47.0 [facility] Comment on above: Performed By: #### L [id number] ####[employer] Layer: NATALIE GARCIA ([id number])[facility] ([facility])[address] [place] [address] Hemoglobin (Bld) [Mass/Vol] 7.9 g/dL Low 11.7-16.0 [facility] Comment on above: Performed By: #### L [id number] ####[employer] Stock Layer: NATALIE GARCIA ([id number])[facility] ([facility] [place] [address] IMMATURE GRANS % 0.3 % Normal 0.0-2.0 [facility] Comment on above: Performed By: #### L [id number] ####[employer] Layer: NATALIE GARCIA ([id number])[facility] ([facility])[address] [place] [address] IMMATURE GRANS ABSOLUTE 0.0 10*3/uL Normal <0.1 [facility] Comment on above: Performed By: #### L [id number] ####[employer] Layer: NATALIE GARCIA ([id number])[facility]ENTERJos[facility] Miguel REHMANELIAS (SBHLAB)[address] Lymphocytes (Bld) [#/Vol] 1.3 10*3/uL Normal 1.0-4.3 [facility] Comment on above: Performed By: #### L [id number] ####Veneer Stock Layer: NATALIE GARCIA ([id number])[facility]ENTERA BARBNEW MEXICO [facility] L[facility] VE[facility]ASN (SBHLAB)[address] Lymphocytes/100 WBC (Bld) 21.3 % Normal 15.0-45.0 [facility] Comment on above: Performed By: #### L [id number] ####Veneer Stock Layer: NATALIE GARCIA ([id number])[facility]ITALL[facility] (SBHLAB)[address] [place] [address] MCH (RBC) [Entitic mass] 26.2 pg Normal 26.0-34.0 [facility] Comment on above: Performed By: #### L [id number] ####Veneer Stock Layer: NATALIE GARCIA ([id number])[facility] CENTERJosé Miguel [facility]IT[facility] (SBHLAB)[address] MCHC 30.7 % Normal 30.5-36.0 [facility] Comment on above: Performed By: #### L [id number] ####Veneer Stock Layer: NATALIE GARCIA ([id number])[facility] CENTERJosé Miguel BARBNEW MEX[facility] L[facility] VE[facility]ASN (SBHLAB)[address] MCV (RBC) [Entitic vol] 85.4 fL Normal 77.0-99.0 [facility] Comment on above: Performed By: #### L [id number] ####Veneer Stock Layer: NATALIE GARCIA ([id number])[facility] CENTERJosé Miguel BARBNEW MEX[facility] AT L[facility]ASN (SBHLAB)[address] Monocytes (Bld) [#/Vol] 0.5 10*3/uL Normal 0.0-0.9 [facility] Comment on above: Performed By: #### L [id number] ####Veneer Stock Layer: NATALIE GARCIA ([id number])[facility] [place] (SBHLAB)[address] Monocytes/100 WBC (Bld) 8.6 % Normal 5.0-13.0 [facility] Comment on above: Performed By: #### L [id number] ####Veneer Stock Layer: NATALIE GARCIA ([id number])[facility]ENTERA [place] (SBHLAB)[address] NEUTROPHILS ABSOLUTE 4.1 10*3/uL Normal 1.8-7.5 [facility] Comment on above: Performed By: #### L [id number] ####Veneer Stock Layer: NATALIE GARCIA ([id number])[facility]ENTERA [place] (SBHLAB)[address] Neutrophils/100 WBC (Bld) 66.9 % Normal 38.0-82.0 [facility] Comment on above: Performed By: #### L [id number] ####Veneer Stock Layer: NATALIE GARCIA ([id number])[facility]ENTERA [place] (SBHLAB)[address] NRBC 0.0 /100 WBCs Normal 0.0-2.0 [facility] Comment on above: Performed By: #### L [id number] ####Veneer Stock Layer: NATALIE GARCIA ([id number])[facility]A [place] (SBHLAB)[address] Platelet mean volume (Bld) [Entitic vol] 9.7 fL Normal 9.0-12.7 [facility] Comment on above: Performed By: #### L [id number] ####Veneer Stock Layer: NATALIE GARCIA ([id number])[facility]ENTERA [place] (SBHLAB)[address] Platelets (Bld) [#/Vol] 233 10*3/uL Normal 140-440 [facility] Comment on above: Performed By: #### L [id number] ####Veneer Stock Layer: NATALIE GARCIA ([id number])[facility]A [place] (SBHLAB)[address] RBC (Bld) [#/Vol] 3.01 10*6/uL Low 3.80-5.20 [facility] Comment on above: Performed By: #### L [id number] ####Veneer Stock Layer: NATALIE GARCIA ([id number])[facility]ENTERA [place] (SBHLAB)[address] WBC (Bld) [#/Vol] 6.1 10*3/uL Normal 3.6-10.7 [facility] Comment on above: Performed By: #### L [id number] ####Veneer Stock Layer: NATALIE GARCIA ([id number])[facility]A [place] (SBHLAB)[address] COMPREHENSIVE METABOLIC PANE Florentin 06-15-2025 Albumin [Mass/Vol] 2.3 g/dL Low 3.4-4.8 [facility] Comment on above: Performed By: #### L [id number], [id number] ####Veneer Stock Layer: NATALIE GARCIA ([id number])[facility]ENTERA [place] (SBHLAB)[address] ALP [Catalytic activity/Vol] 129 U/L Normal 40-150 [facility] Comment on above: Performed By: #### L [id number], [id number] ####Veneer Stock Layer: NATALIE GARCIA ([id number])[facility]ENTERA [place] (SBHLAB)[address] ALT [Catalytic activity/Vol] 10 U/L Normal <30 [facility] Comment on above: Performed By: #### L [id number], [id number] ####Veneer Stock Layer: NATALIE GARCIA ([id number])[facility]ENTERA [place] (SBHLAB)[address] Anion gap [Moles/Vol] 12 mmol/L Normal 3-13 [facility] Comment on above: Performed By: #### L [id number], [id number] ####Veneer Stock Layer: NATALIE GARCIA ([id number])[facility]ENTERA [place] (SBHLAB)[address] AST [Catalytic activity/Vol] 26 U/L Normal <34 [facility] Comment on above: Performed By: #### L [id number], [id number] ####Veneer Stock Layer: NATALIE GARCIA ([id number])[facility]ENTERA [place] (SBHLAB)[address] Bilirubin [Mass/Vol] 0.7 mg/dL Normal <1.2 [facility] Comment on above: Performed By: #### L [id number], [id number] ####Veneer Stock Layer: NATALIE DENISETRICIA ([id number])[facility]ENTERA [facility] (SBHLAB)[address] Calcium [Mass/Vol] 8.8 mg/dL Normal 8.8-10.0 [facility] Comment on above: Performed By: #### L [id number], [id number] ####Veneer Stock Layer: NATALIE GARCIA ([id number])[facility]A [place] (SBHLAB)[address] Chloride [Moles/Vol] 97 mmol/L Low 98-107 [facility] Comment on above: Performed By: #### L [id number], [id number] ####Veneer Stock Layer: NATALIE GARCIA ([id number])[facility]ENTERA [place] (SBHLAB)[address] CO2 [Moles/Vol] 25 mmol/L Normal 23-[address] [facility] Comment on above: Performed By: #### L [id number], [id number] ####Veneer Stock Layer: NATALIE GARCIA ([id number])[facility]A [place] (SBHLAB)[address] Creatinine [Mass/Vol] 2.80 mg/dL High 0.57-1.11 [facility] Comment on above: Performed By: #### L [id number], [id number] ####Veneer Stock Layer: NATALIE GARCIA ([id number])[facility]ENTERA BARBNEW MEXICO [facility] INSTITUTE AT L[facility] VEGASN (SBHLAB)[address] [place] [address] [place] GLOMERULAR FILTRATION RATE ML/MIN/1.73 SQ M.PREDICTED 16.9 mL/min/1.73m*2 Low >60.0 [facility] Comment on above: Result Comment: Calc ulation based on the Chronic Kidney Disease Epidemiology Collaboration (CKD-EPI) equation refit without adjustment for race Performed By: #### L [id number], [id number] ####Veneer Stock Layer: NATALIE GARCIA ([id number])[facility]ENTERA BARBNEW MEXICO [facility] AT L[facility] VE[facility]ASN (SBHLAB)[address] Glucose [Mass/Vol] 80 mg/dL Low 82-115 [facility] Comment on above: Performed By: #### L [id number], [id number] ####Veneer Stock Layer: NATALIE GARCIA ([id number])[facility]ENTERA [facility]BCH[facility] (SBHLAB)[address] Potassium [Moles/Vol] 3.4 mmol/L Low 3.5-5.1 [facility] Comment on above: Result Comment: [facility] potassium values may be up to 0.5 mmol/L lower than serum values. Performed By: #### L [id number], [id number] ####Veneer Stock Layer: NATALIE GARCIA ([id number])[facility]A BARBNEW MEX[facility]N (SBHLAB)[address] Protein [Mass/Vol] 6.4 g/dL Normal 6.4-8.3 [facility] Comment on above: Performed By: #### L [id number], [id number] ####Veneer Stock Layer: NATALIE GARCIA ([id number])[facility] BARBNEW MEXICO BEHAV[facility] HEALTH INSTITUTE AT L[facility] VEGASN (SBHLAB)[address] Sodium [Moles/Vol] 134 mmol/L Low 136-145 [facility] Comment on above: Performed By: #### L [id number], [id number] ####Veneer Stock Layer: NATALIE GARCIA ([id number])[facility] CENTERJosé Miguel [place] (SBHLAB)[address] Urea nitrogen [Mass/Vol] 31 mg/dL High 9-23 [facility] Comment on above: Performed By: #### L [id number], [id number] ####Veneer Stock Layer: NATALIE GARCIA ([id number])[facility] MELISSA (SBHLAB)[address] Comprehensive metabolic 1998 panelon 06-15-2025 Albumin [Mass/Vol] 2.3 g/dL Low 3.4 - 4.8 g/dL [facility] ALP [Catalytic activity/Vol] 129 U/L 40 - 150 U/L [facility] ALT [Catalytic activity/Vol] 10 U/L NINF - 30 U/L [facility] Anion gap [Moles/Vol] 12 mmol/L 3 - 13 mmol/L [facility] AST [Catalytic activity/Vol] 26 U/L [facility] U/L [facility] Bilirubin [Mass/Vol] 0.7 mg/dL NINF - 1.2 mg/dL [facility] Calcium [Mass/Vol] 8.8 mg/dL 8.8 - 10. 0 mg/dL [facility] Chloride [Moles/Vol] 97 mmol/L Low 98 - 10 7 mmol/L [facility] CO2 [Moles/Vol] 25 mmol/L 23 - 31 mmol/L [facility] Creatinine [Mass/Vol] 2.8 mg/dL High 0.57 - 1.11 mg/dL [facility] GFR/1.73 sq M.predicted (S/P/Bld) [Vol rate/Area] 16.9 mL/min Low - PINF [facility] Glucose [Mass/Vol] 80 mg/dL Low 82 - 115 mg/dL [facility] Interpretation and review of laboratory results Abnormal [facility] Potassium [Moles/Vol] 3.4 mmol/L Low 3.5 - 5.1 mmol/L [facility] Protein [Mass/Vol] 6.4 g/dL 6.4 - 8.3 g/dL [facility] Sodium [Moles/Vol] 134 mmol/L Low 136 - 145 mmol/L [facility] Urea nitrogen [Mass/Vol] 31 mg/dL High 9 - 23 mg/dL [facility] Laboratory - Chemistry and C hemistry - challengeon 06-15-2025 Glucose [Mass/Vol] 143 mg/dL High 70 - 100 mg/dL [facility] Glucose [Mass/Vol] 117 mg/dL High 70 - 100 mg/dL [facility] Glucose [Mass/Vol] 98 mg/dL 70 - 100 mg/dL [facility] Magnesium [Mass/Vol] 1.8 mg/dL 1.6 - 2 .6 mg/dL [facility] Glucose [Mass/Vol] 100 mg/dL 70 - 100 mg/dL [facility] Laboratory - Microbiology an d Antimicrobial susceptibilityon 06-15-2025 Bacteria identified Anaer cx Nom (Unsp spec) No growth at 5 days [facility] MAGNESIUMon 06-15-2025 Magnesium [Mass/Vol] 1.8 mg/dL Normal 1.6-2.6 [facility] Comment on above: Result Comment: DORIAN Knight COMMENTS:Higher values can be expected in females during menses. Performed By: #### L AB17, [id number] ####Veneer Stock Layer: NATALIE GARCIA ([id number])[facility] ([facility])[address] [place] [address] Magnesium [Mass/Vol]on 06-15 Interpretation and review of laboratory results Normal [facility] No Panel Informationon 06-15 Interpretation and review of laboratory results Abnormal [facility] Interpretation and review of laboratory results Abnormal [facility] Interpretation and review of laboratory results Normal [facility] Interpretation and review of laboratory results Normal [facility] Nursing Noteon 06-15-2025 Nursing Note Normal [facility] Progress Noteon 06-15-2025 Progress [facility] Progress Note Normal [facility] Progress [facility] Progress Note Normal [facility] [id number] 06-14-2025 [id number] Normal [facility] CBC W Auto Differential pane l (Bld)on 06-14-2025 Basophils (Bld) [#/Vol] 0 10*3/uL 0.0 - 0.2 10*3/uL [facility] Basophils/100 WBC (Bld) 0.7 % 0.0 - 2.0 % [facility] Eosinophils (Bld) [#/Vol] 0.2 10*3/uL 0.0 - 0.5 10*3/uL [facility] Eosinophils/100 WBC (Bld) 4 % 0.0 - 6.0 % [facility] Erythrocyte distribution width (RBC) [Ratio] 18 % High 11.5 - 15.0 % [facility] Hematocrit (Bld) [Volume fraction] 27.2 % Low 35.0 - 47.0 % [facility] Hemoglobin (Bld) [Mass/Vol] 8.5 g/dL Low 11.7 - 16.0 g/dL [facility] Immature granulocytes (Bld) [#/Vol] 0 10*3/uL NINF - 0.1 10*3/uL [facility] Immature granulocytes/100 WBC (Bld) 0.5 % 0.0 - 2.0 % [facility] Interpretation and review of laboratory results Abnormal [facility] Lymphocytes (Bld) [#/Vol] 0.9 10*3/uL Low 1.0 - 4.3 10*3/uL [facility] Lymphocytes/100 WBC (Bld) 16.8 % 15.0 - 45.0 % [facility] MCH (RBC) [Entitic mass] 26.5 pg 26.0 - 34.0 pg [facility] MCHC (RBC) [Mass/Vol] 31.3 % 30.5 - 36.0 % [facility] MCV (RBC) [Entitic vol] 84.7 fL 77.0 - 99.0 fL [facility] Monocytes (Bld) [#/Vol] 0.7 10*3/uL 0.0 - 0.9 10*3/uL [facility] Monocytes/100 WBC (Bld) 12.1 % 5.0 - 13.0 % [facility] Neutrophils (Bld) [#/Vol] 3.7 10*3/uL 1.8 - 7.5 10*3/uL [facility] Neutrophils/100 WBC (Bld) 65.9 % 38.0 - 82.0 % [facility] Nucleated RBC/100 WBC (Bld) [Ratio] 0 % [facility] Platelet mean volume (Bld) [Entitic vol] 9.8 fL 9.0 - 12.7 fL [facility] Platelets (Bld) [#/Vol] 222 10*3/uL 140 - 440 10*3/uL [facility] RBC (Bld) [#/Vol] 3.21 10*6/uL Low 3.80 - 5.2 0 10*6/uL [facility] WBC (Bld) [#/Vol] 5.6 10*3/uL 3.6 - 10.7 10*3/uL [facility] CBC WITH AUTO DIFFERENTIALon 06-14-2025 Basophils (Bld) [#/Vol] 0.0 10*3/uL Normal 0.0-0.2 [facility] Comment on above: Performed By: #### L [id number] ####Veneer Stock Layer: NATALIE GARCIA ([id number])[facility] (SBAB)[address] [place] [address] Basophils/100 WBC (Bld) 0.7 % Normal 0.0-2.0 [facility] Comment on above: Performed By: #### L [id number] ####Veneer Stock Layer: NATALIE GARCIA ([id number])[facility] (SBAB)[address] [place] [address] Eosinophils (Bld) [#/Vol] 0.2 10*3/uL Normal 0.0-0.5 [facility] Comment on above: Performed By: #### L [id number] ####Veneer Stock Layer: NATALIE GARCIA ([id number])[facility] (SBAB)[address] Eosinophils/100 WBC (Bld) 4.0 % Normal 0.0-6.0 [facility] Comment on above: Performed By: #### L [id number] ####Veneer Stock Layer: NATALIE GARCIA ([id number])[facility] (SBAB)[address] Erythrocyte distribution width (RBC) [Ratio] 18.0 % High 11.5-15.0 [facility] Comment on above: Performed By: #### L [id number] ####Veneer Stock Layer: NATALIE SIMONErlindaTRICIA ([id number])[facility] [place] (SBHLAB)[address] Hematocrit (Bld) [Volume fraction] 27.2 % Low 35.0-47.0 [facility] Comment on above: Performed By: #### L [id number] ####Veneer Stock Layer: NATALIE JOSE ([id number])[facility]A [place] (SBHLAB)[address] Hemoglobin (Bld) [Mass/Vol] 8.5 g/dL Low 11.7-16.0 [facility] Comment on above: Performed By: #### L [id number] ####Veneer Stock Layer: NATALIE JOSE ([id number])[facility]A [place] (SBAB)[address] [place] [address] IMMATURE GRANS % 0.5 % Normal 0.0-2.0 [facility] Comment on above: Performed By: #### L [id number] ####Veneer Stock Layer: NATALIE SIMONErlindaTRICIA ([id number])[facility] [place] (SBAB)[address] [place] [address] IMMATURE GRANS ABSOLUTE 0.0 10*3/uL Normal <0.1 [facility] Comment on above: Performed By: #### L [id number] ####Veneer Stock Layer: NATALIE DENISETRICIA ([id number])[facility]A [place] (SBHLAB)[address] Lymphocytes (Bld) [#/Vol] 0.9 10*3/uL Low 1.0-4.3 [facility] Comment on above: Performed By: #### L [id number] ####Veneer Stock Layer: NATALIE DENISETRICIA ([id number])[facility] [place] (SBHLAB)[address] Lymphocytes/100 WBC (Bld) 16.8 % Normal 15.0-45.0 [facility] Comment on above: Performed By: #### L [id number] ####Veneer Stock Layer: NATALIE SIMONErlindaTRICIA ([id number])[facility] BARBM[place]NUSN (SBHLAB)[address] MCH (RBC) [Entitic mass] 26.5 pg Normal 26.0-34.0 [facility] Comment on above: Performed By: #### L [id number] ####Veneer Stock Layer: NATALIE JOSE ([id number])[facility]A BARBNEW MEX[facility]N (SBHLAB)[address] MCHC 31.3 % Normal 30.5-36.0 [facility] Comment on above: Performed By: #### L [id number] ####Veneer Stock Layer: NATALIE JOSE ([id number])[facility] CENTERJosé Miguel [place] (SBHLAB)[address] [place] [address] MCV (RBC) [Entitic vol] 84.7 fL Normal 77.0-99.0 [facility] Comment on above: Performed By: #### L [id number] ####Veneer Stock Layer: NATALIE DENISETRICIA ([id number])[facility] CENTERJosé Miguel BARBMAGNUSN (SBHLAB)[address] Monocytes (Bld) [#/Vol] 0.7 10*3/uL Normal 0.0-0.9 [facility] Comment on above: Performed By: #### L [id number] ####Veneer Stock Layer: NATALIE DENISETRICIA ([id number])[facility] CENTERJosé Miguel [place] (SBHLAB)[address] Monocytes/100 WBC (Bld) 12.1 % Normal 5.0-13.0 [facility] Comment on above: Performed By: #### L [id number] ####Veneer Stock Layer: NATALIE GARCIA ([id number])[facility]A [place] (SBHLAB)[address] NEUTROPHILS ABSOLUTE 3.7 10*3/uL Normal 1.8-7.5 [facility] Comment on above: Performed By: #### L [id number] ####Veneer Stock Layer: NATALIE SIMONErlindaTRICIA ([id number])[facility] [place] (SBHLAB)[address] Neutrophils/100 WBC (Bld) 65.9 % Normal 38.0-82.0 [facility] Comment on above: Performed By: #### L [id number] ####Veneer Stock Layer: NATALIE SIMONDANIEL ([id number])[facility]ENTERA BARBNEW MEXICO [facility]N (SBHLAB)[address] NRBC 0.0 /100 WBCs Normal 0.0-2.0 [facility] Comment on above: Performed By: #### L [id number] ####Veneer Stock Layer: NATALIE JOSE ([id number])[facility]ENTERA [facility] (SBHLAB)[address] Platelet mean volume (Bld) [Entitic vol] 9.8 fL Normal 9.0-12.7 [facility] Comment on above: Performed By: #### L [id number] ####Veneer Stock Layer: NATALIE SIMONDANIEL ([id number])[facility]A [facility] (SBHLAB)[address] Platelets (Bld) [#/Vol] 222 10*3/uL Normal 140-440 [facility] Comment on above: Performed By: #### L [id number] ####Veneer Stock Layer: NATALIE GARCIA ([id number])[facility] (SB[facility]AB)[address] RBC (Bld) [#/Vol] 3.21 10*6/uL Low 3.80-5.20 [facility] Comment on above: Performed By: #### L [id number] ####Veneer Stock Layer: NATALIE DENISETRICIA ([id number])[facility]A [facility] (SBHLAB)[address] WBC (Bld) [#/Vol] 5.6 10*3/uL Normal 3.6-10.7 [facility] Comment on above: Performed By: #### L [id number] ####Veneer Stock Layer: NATALIE DENISETRICIA ([id number])[facility] [place] (SBHLAB)[address] COMPREHENSIVE METABOLIC PANE Florentin 06-14-2025 Albumin [Mass/Vol] 2.3 g/dL Low 3.4-4.8 [facility] Comment on above: Performed By: #### L [id number], [id number] ####Veneer Stock Layer: NATALIE GARCIA ([id number])[facility]A [place] (SBHLAB)[address] ALP [Catalytic activity/Vol] 135 U/L Normal 40-150 [facility] Comment on above: Performed By: #### L [id number], [id number] ####Veneer Stock Layer: NATALIE GARCIA ([id number])[facility]ENTERA [facility]ARNEW MEXICO [facility] (SBHLAB)[address] ALT [Catalytic activity/Vol] 16 U/L Normal <30 [facility] Comment on above: Performed By: #### L [id number], [id number] ####Veneer Stock Layer: NATALIE GARCIA ([id number])[facility]A [facility] (SBHLAB)[address] Anion gap [Moles/Vol] 11 mmol/L Normal 3-13 [facility] Comment on above: Performed By: #### L [id number], [id number] ####Veneer Stock Layer: NATALIE GARCIA ([id number])[facility]A [facility]ARNEW MEX[facility] (SBHLAB)[address] AST [Catalytic activity/Vol] 27 U/L Normal <34 [facility] Comment on above: Performed By: #### L [id number], [id number] ####Veneer Stock Layer: NATALIE GARCIA ([id number])[facility]A [facility]NEW M[facility] (SBHLAB)[address] Bilirubin [Mass/Vol] 0.6 mg/dL Normal <1.2 [facility] Comment on above: Performed By: #### L AB17, [id number] ####Veneer Stock Layer: NATALIE GARCIA ([id number])[facility] CENTERJosé Miguel [place]GR[place] (SBHLAB)[address] Calcium [Mass/Vol] 9.0 mg/dL Normal 8.8-10.0 [facility] Comment on above: Performed By: #### L AB17, [id number] ####Veneer Stock Layer: NATALIE GARCIA ([id number])[facility]ENTERA [place] (SBHLAB)[address] Chloride [Moles/Vol] 99 mmol/L Normal 98-107 [facility] Comment on above: Performed By: #### L [id number], [id number] ####Veneer Stock Layer: NATALIE GARCIA ([id number])[facility] CENTERJosé Miguel [place] (SBHLAB)[address] CO2 [Moles/Vol] 28 mmol/L Normal 23-[address] [facility] Comment on above: Performed By: #### L AB17, [id number] ####Veneer Stock Layer: NATALIE GARCIA ([id number])[facility] CENTERJosé Miguel [place] (SBHLAB)[address] Creatinine [Mass/Vol] 1.93 mg/dL High 0.57-1.11 [facility] Comment on above: Performed By: #### L AB17, [id number] ####Veneer Stock Layer: NATALIE GARCIA ([id number])[facility] CENTERJosé Miguel REHMANMAGNUSN (SBHLAB)[address] [place] [address] [place] GLOMERULAR FILTRATION RATE ML/MIN/1.73 SQ M.PREDICTED 26.4 mL/min/1.73m*2 Low >60.0 [facility] Comment on above: Result Comment: Calc ulation based on the Chronic Kidney Disease Epidemiology Collaboration (CKD-EPI) equation refit without adjustment for race Performed By: #### L AB17, [id number] ####Veneer Stock Layer: NATALIE GARCIA ([id number])[facility] TAMARM[facility]N (SBHLAB)[address] [place] [address] [place] Glucose [Mass/Vol] 100 mg/dL Normal 82-115 [facility] Comment on above: Performed By: #### L AB17, [id number] ####[employer]: NATALIE GARCIA ([id number])[facility] (SBHLAB)[address] Potassium [Moles/Vol] 3.5 mmol/L Normal 3.5-5.1 [facility] Comment on above: Result Comment: [facility] potassium values may be up to 0.5 mmol/L lower than serum values. Performed By: #### L AB17, [id number] ####[employer]: NATALIE GARCIA ([id number])[facility] ([facility] Protein [Mass/Vol] 6.7 g/dL Normal 6.4-8.3 [facility] Comment on above: Performed By: #### L AB17, [id number] ####[employer]: NATALIE GARCIA ([id number])[facility] (SB[facility]AB)[address] Sodium [Moles/Vol] 138 mmol/L Normal 136-145 [facility] Comment on above: Performed By: #### L AB17, [id number] ####[employer]: NATALIE GARCIA ([id number])[facility] ([facility])[address] Urea nitrogen [Mass/Vol] 19 mg/dL Normal 9-23 [facility] Comment on above: Performed By: #### L AB17, [id number] ####[employer]: NATALIE GARCIA ([id number])[facility] ([facility])[address] Comprehensive metabolic 1998 panelon 06-14-2025 Albumin [Mass/Vol] 2.3 g/dL Low 3.4 - 4.8 g/dL [facility] ALP [Catalytic activity/Vol] 135 U/L 40 - 150 U/L [facility] ALT [Catalytic activity/Vol] 16 U/L NINF - 30 U/L [facility] Anion gap [Moles/Vol] 11 mmol/L 3 - 13 mmol/L [facility] AST [Catalytic activity/Vol] 27 U/L NINF - 34 U/L [facility] Bilirubin [Mass/Vol] 0.6 mg/dL NINF - 1.2 mg/dL [facility] Calcium [Mass/Vol] 9 mg/dL 8.8 - 10. 0 mg/dL [facility] Chloride [Moles/Vol] 99 mmol/L 98 - 10 7 mmol/L [facility] CO2 [Moles/Vol] 28 mmol/L 23 - 31 mmol/L [facility] Creatinine [Mass/Vol] 1.93 mg/dL High 0.57 - 1.11 mg/dL [facility] GFR/1.73 sq M.predicted (S/P/Bld) [Vol rate/Area] 26.4 mL/min Low - PINF [facility] Glucose [Mass/Vol] 100 mg/dL 82 - 115 mg/dL [facility] Interpretation and review of laboratory results Abnormal [facility] Potassium [Moles/Vol] 3.5 mmol/L 3.5 - 5.1 mmol/L [facility] Protein [Mass/Vol] 6.7 g/dL 6.4 - 8.3 g/dL [facility] Sodium [Moles/Vol] 138 mmol/L 136 - 145 mmol/L [facility] Urea nitrogen [Mass/Vol] 19 mg/dL 9 - 23 mg/dL [facility] Consulton 06-14-2025 Consult Normal [facility] ECG 12-LEADon 06-14-2025 ECG 12-LEAD IMPRESSION: Sinus rhythm Atrial premature complex Left bundle branch block Compared to ECG 06/01/2025 11:15:32 No significant changes Electronically Signed On 06-14-2025 21:31:38 EDT by Grayson Haywood Normal [facility] Laboratory - Chemistry and C hemistry - challengeon 06-14-2025 Glucose [Mass/Vol] 106 mg/dL High 70 - 100 mg/dL [facility] TSH Qn 3.23 m[IU]/L [facility] Glucose [Mass/Vol] 100 mg/dL 70 - 100 mg/dL [facility] Glucose [Mass/Vol] 161 mg/dL High 70 - 100 mg/dL [facility] Glucose [Mass/Vol] 126 mg/dL High 70 - 100 mg/dL [facility] Magnesium [Mass/Vol] 1.9 mg/dL 1.6 - 2 .6 mg/dL [facility] Glucose [Mass/Vol] 125 mg/dL High 70 - 100 mg/dL [facility] MAGNESIUMon 06-14-2025 Magnesium [Mass/Vol] 1.9 mg/dL Normal 1.6-2.6 [facility] Comment on above: Result Comment: ORDE R COMMENTS:Higher values can be expected in females during menses. Performed By: #### L [id number], [id number] ####Veneer Stock Layer: NATALIE GARCIA ([id number])[facility] (SB[facility])[address] [place] [address] Magnesium [Mass/Vol]on 06-14 Interpretation and review of laboratory results Normal [facility] No Panel InformationOrdered By: Grayson Haywood on 06-14-2025 P [place] 0 degrees [facility] Work Phone: UT Interval 65 ms [facility] Work Phone: QRS [place] -11 degrees [facility] Work Phone: QRSD Interval 194 ms [facility] h Work Phone: QT Interval 543 ms [facility] Work Phone: QTC Interval 552 ms [facility] Work Phone: T Wave [place] 188 degrees [facility] SCVNGR Work Phone: [facility] Work Phone: No Panel Informationon 06-14 CV EPIPHANY [facility] Interpretation and review of laboratory results Abnormal [facility] Interpretation and review of laboratory results Normal [facility] RADIOLOGY SYSTEM [facility] Radiology Study observation (narrative) [facility] Interpretation and review of laboratory results Abnormal [facility] Interpretation and review of laboratory results Abnormal [facility] Interpretation and review of laboratory results Abnormal [facility] Nursing Noteon 06-14-2025 Nursing Note Normal [facility] Progress Noteon 06-14-2025 Progress Note [facility] Progress [facility] Progress Note Normal [facility] Progress Note [facility] THYROID STIMULATING HORMONEo n 06-14-2025 THYROID STIMULATING HORMONE 3.23 uIU/mL Normal 0.35-4.94 [facility] Comment on above: Performed By: #### L [id number] ####Veneer Stock Layer: NATALIE GARCIA ([id number])[facility] MELISSA (SBHLAB)[address] [place] [address] TSH Qnon 06-14-2025 Interpretation and review of laboratory results Normal [facility] Vital signsOrdered By: Angelia Haywood on 06-14-2025 Heart rate 63 /min bpm [facility] Work Phone: [phone] 06-13-2025 [phone] Faxed OPAT to [facility]. OPAT not received. Emailed OPAT to [email or web address] as requested. Normal [facility] [phone] Normal [facility] Bacteria identified Aer cx N om (Unsp spec)Ordered By: Rachel Schmitt on 06-13-2025 Gram Stain Result Many Polymorphonuclear leukocytes per low power field [facility] Gram Stain Result No organisms seen [facility] Interpretation and review of laboratory results Abnormal [facility] CBC W Auto Differential pane l (Bld)on 06-13-2025 Basophils (Bld) [#/Vol] 0.1 10*3/uL 0.0 - 0.2 10*3/uL [facility] Basophils/100 WBC (Bld) 0.8 % 0.0 - 2.0 % [facility] Eosinophils (Bld) [#/Vol] 0.2 10*3/uL 0.0 - 0.5 10*3/uL [facility] Eosinophils/100 WBC (Bld) 2.9 % 0.0 - 6.0 % [facility] Erythrocyte distribution width (RBC) [Ratio] 17.8 % High 11.5 - 15.0 % [facility] Hematocrit (Bld) [Volume fraction] 26.6 % Low 35.0 - 47.0 % [facility] Hemoglobin (Bld) [Mass/Vol] 8.4 g/dL Low 11.7 - 16.0 g/dL [facility] Immature granulocytes (Bld) [#/Vol] 0 10*3/uL NINF - 0.1 10*3/uL [facility] Immature granulocytes/100 WBC (Bld) 0.4 % 0.0 - 2.0 % [facility] Interpretation and review of laboratory results Abnormal [facility] Lymphocytes (Bld) [#/Vol] 1.1 10*3/uL 1.0 - 4.3 10*3/uL [facility] Lymphocytes/100 WBC (Bld) 15.5 % 15.0 - 45.0 % [facility] MCH (RBC) [Entitic mass] 26.3 pg 26.0 - 34.0 pg [facility] MCHC (RBC) [Mass/Vol] 31.6 % 30.5 - 36.0 % [facility] MCV (RBC) [Entitic vol] 83.4 fL 77.0 - 99.0 fL [facility] Monocytes (Bld) [#/Vol] 0.7 10*3/uL 0.0 - 0.9 10*3/uL [facility] Monocytes/100 WBC (Bld) 10.1 % 5.0 - 13.0 % [facility] Neutrophils (Bld) [#/Vol] 5 10*3/uL 1.8 - 7.5 10*3/uL [facility] Neutrophils/100 WBC (Bld) 70.3 % 38.0 - 82.0 % [facility] Nucleated RBC/100 WBC (Bld) [Ratio] 0 % [facility] Platelet mean volume (Bld) [Entitic vol] 9.5 fL 9.0 - 12.7 fL [facility] Platelets (Bld) [#/Vol] 235 10*3/uL 140 - 440 10*3/uL [facility] RBC (Bld) [#/Vol] 3.19 10*6/uL Low 3.80 - 5.2 0 10*6/uL [facility] WBC (Bld) [#/Vol] 7.2 10*3/uL 3.6 - 10.7 10*3/uL [facility] CBC WITH AUTO DIFFERENTIALon 06-13-2025 Basophils (Bld) [#/Vol] 0.1 10*3/uL Normal 0.0-0.2 [facility] Comment on above: Performed By: #### L [id number] ####Veneer Stock Layer: NATALIE GARCIA ([id number])[facility] [place] (SBHLAB)[address] Basophils/100 WBC (Bld) 0.8 % Normal 0.0-2.0 [facility] Comment on above: Performed By: #### L [id number] ####Veneer Stock Layer: NATALIE GARCIA ([id number])[facility] ([facility])[address] [place] [address] Eosinophils (Bld) [#/Vol] 0.2 10*3/uL Normal 0.0-0.5 [facility] Comment on above: Performed By: #### L [id number] ####Veneer Stock Layer: NATALIE GARCIA ([id number])[facility] (SBHLAB)[address] [place] [address] Eosinophils/100 WBC (Bld) 2.9 % Normal 0.0-6.0 [facility] Comment on above: Performed By: #### L [id number] ####Veneer Stock Layer: NATALIE GARCIA ([id number])[facility] (SBHLAB)[address] [place] [address] Erythrocyte distribution width (RBC) [Ratio] 17.8 % High 11.5-15.0 [facility] Comment on above: Performed By: #### L [id number] ####Veneer Stock Layer: NATALIE GARCIA ([id number])[facility] (SBAB)[address] [place] [address] Hematocrit (Bld) [Volume fraction] 26.6 % Low 35.0-47.0 [facility] Comment on above: Performed By: #### L [id number] ####Veneer Stock Layer: NATALIE DENISETRICIA ([id number])[facility] CENTERJosé Miguel REHMANNEW MEXICO BEHAVIOR[facility] HEALTH INSTITUTE AT LAS VEGASLaurel (SBHLAB)[address] Hemoglobin (Bld) [Mass/Vol] 8.4 g/dL Low 11.7-16.0 [facility] Comment on above: Performed By: #### L [id number] ####Veneer Stock Layer: NATALIE GARCIA ([id number])[facility]ENTERJosé Miguel BARBNEW MEXICO BEHAVIORAL HEALTH INSTITUTE AT LAS VEGASN (SBHLAB)[address] IMMATURE GRANS % 0.4 % Normal 0.0-2.0 [facility] Comment on above: Performed By: #### L [id number] ####Veneer Stock Layer: NATALIE DENISETRICIA ([id number])[facility] ([facility])[address] IMMATURE GRANS ABSOLUTE 0.0 10*3/uL Normal <0.1 [facility] Comment on above: Performed By: #### L [id number] ####Veneer Stock Layer: NATALIE DENISETRICIA ([id number])[facility]ENTERJosé Miguel [place] ([facility])[address] Lymphocytes (Bld) [#/Vol] 1.1 10*3/uL Normal 1.0-4.3 [facility] Comment on above: Performed By: #### L [id number] ####Veneer Stock Layer: NATALIE GARCIA ([id number])[facility]ENTERJosé Miguel [place] ([facility])[address] Lymphocytes/100 WBC (Bld) 15.5 % Normal 15.0-45.0 [facility] Comment on above: Performed By: #### L [id number] ####Veneer Stock Layer: NATALIE GARCIA ([id number])[facility] (SBAB)[address] MCH (RBC) [Entitic mass] 26.3 pg Normal 26.0-34.0 [facility] Comment on above: Performed By: #### L [id number] ####Veneer Stock Layer: NATALIE GARCIA ([id number])SIMINA BARBMAGNUSN (SBHLAB)[address] MCHC 31.6 % Normal 30.5-36.0 [facility] Comment on above: Performed By: #### L [id number] ####Veneer Stock Layer: NATALIE GARCIA ([id number])[facility] [place] (SBHLAB)[address] MCV (RBC) [Entitic vol] 83.4 fL Normal 77.0-99.0 [facility] Comment on above: Performed By: #### L [id number] ####Veneer Stock Layer: NATALIE GARCIA ([id number])[facility] [place] (SBHLAB)[address] [place] [address] Monocytes (Bld) [#/Vol] 0.7 10*3/uL Normal 0.0-0.9 [facility] Comment on above: Performed By: #### L [id number] ####Veneer Stock Layer: NATALIE GARCIA ([id number])[facility] [place] (SBHLAB)[address] Monocytes/100 WBC (Bld) 10.1 % Normal 5.0-13.0 [facility] Comment on above: Performed By: #### L [id number] ####Veneer Stock Layer: NATALIE GARCIA ([id number])[facility] [place] (SBHLAB)[address] NEUTROPHILS ABSOLUTE 5.0 10*3/uL Normal 1.8-7.5 [facility] Comment on above: Performed By: #### L [id number] ####Veneer Stock Layer: NATALIE GARCIA ([id number])[facility] [place] (SBHLAB)[address] Neutrophils/100 WBC (Bld) 70.3 % Normal 38.0-82.0 [facility] Comment on above: Performed By: #### L [id number] ####Veneer Stock Layer: NATALIE GARCIA ([id number])[facility] [place] (SBHLAB)[address] NRBC 0.0 /100 WBCs Normal 0.0-2.0 [facility] Comment on above: Performed By: #### L [id number] ####Veneer Stock Layer: NATALIE SIMONDANIEL ([id number])[facility] [place] (SBHLAB)[address] Platelet mean volume (Bld) [Entitic vol] 9.5 fL Normal 9.0-12.7 [facility] Comment on above: Performed By: #### L [id number] ####Veneer Stock Layer: NATALIE JOSE ([id number])[facility] [place] (SBHLAB)[address] Platelets (Bld) [#/Vol] 235 10*3/uL Normal 140-440 [facility] Comment on above: Performed By: #### L [id number] ####Veneer Stock Layer: NATALIE JOSE ([id number])[facility] [place] (SBHLAB)[address] RBC (Bld) [#/Vol] 3.19 10*6/uL Low 3.80-5.20 [facility] Comment on above: Performed By: #### L [id number] ####Veneer Stock Layer: NATALIE SIMONDANIEL ([id number])[facility] [place] (SBHLAB)[address] WBC (Bld) [#/Vol] 7.2 10*3/uL Normal 3.6-10.7 [facility] Comment on above: Performed By: #### L [id number] ####Veneer Stock Layer: NATALIE SIMONDANIEL ([id number])[facility] [place] (SBHLAB)[address] COMPREHENSIVE METABOLIC PANE Florentin 06-13-2025 Albumin [Mass/Vol] 2.3 g/dL Low 3.4-4.8 [facility] Comment on above: Performed By: #### L [id number], [id number] ####Veneer Stock Layer: NATALIE GARCIA ([id number])[facility] [place] (SBHLAB)[address] ALP [Catalytic activity/Vol] 127 U/L Normal 40-150 [facility] Comment on above: Performed By: #### L [id number], [id number] ####Veneer Stock Layer: NATALIE GARCIA ([id number])[facility]ENTERA BARBNEW MEXICO BEHAVIORAL HEALTH INSTITUTE AT LAS VEGASN (SBHLAB)[address] ALT [Catalytic activity/Vol] 12 U/L Normal <30 [facility] Comment on above: Performed By: #### L [id number], [id number] ####Veneer Stock Layer: ANTALIE GARCIA ([id number])[facility]A [facility] (SBHLAB)[address] Anion gap [Moles/Vol] 12 mmol/L Normal 3-13 [facility] Comment on above: Performed By: #### L [id number], [id number] ####Veneer Stock Layer: NATALIE GARCIA ([id number])[facility]A [facility] (SBHLAB)[address] AST [Catalytic activity/Vol] 22 U/L Normal <34 [facility] Comment on above: Performed By: #### L [id number], [id number] ####Veneer Stock Layer: NATALIE GARCIA ([id number])[facility]A [facility] (SBHLAB)[address] [place] [address] [place] Bilirubin [Mass/Vol] 0.8 mg/dL Normal <1.2 [facility] Comment on above: Performed By: #### L [id number], [id number] ####Veneer Stock Layer: NATALIE GARCIA ([id number])[facility] [place] (SBHLAB)[address] Calcium [Mass/Vol] 9.3 mg/dL Normal 8.8-10.0 [facility] Comment on above: Performed By: #### L [id number], [id number] ####Veneer Stock Layer: NATALIE GARCIA ([id number])[facility] [place] (SBHLAB)[address] Chloride [Moles/Vol] 97 mmol/L Low 98-107 [facility] Comment on above: Performed By: #### L [id number], [id number] ####Veneer Stock Layer: NATALIE GARCIA ([id number])[facility] [place] (SBHLAB)[address] CO2 [Moles/Vol] 25 mmol/L Normal 23-[address] [facility] Comment on above: Performed By: #### L [id number], [id number] ####Veneer Stock Layer: NATALIE GARCIA ([id number])[facility] CENTERJosé Miguel [place] (SBHLAB)[address] Creatinine [Mass/Vol] 3.37 mg/dL High 0.57-1.11 [facility] Comment on above: Performed By: #### L AB17, [id number] ####Veneer Stock Layer: NATALIE GARCIA ([id number])[facility]ENTERJosé Miguel [place] (SBHLAB)[address] GLOMERULAR FILTRATION RATE ML/MIN/1.73 SQ M.PREDICTED 13.5 mL/min/1.73m*2 Low >60.0 [facility] Comment on above: Result Comment: Calc ulation based on the Chronic Kidney Disease Epidemiology Collaboration (CKD-EPI) equation refit without adjustment for race Performed By: #### L [id number], [id number] ####Veneer Stock Layer: NATALIE GARCIA ([id number])[facility]ENTERJosé Miguel [place] (SBHLAB)[address] Glucose [Mass/Vol] 56 mg/dL Low 82-115 [facility] Comment on above: Performed By: #### L [id number], [id number] ####Veneer Stock Layer: NATALIE GARCIA ([id number])[facility]ENTERJosé Miguel RE[facility]MANNEW MEXICO BE[facility] AT L[facility] VE[facility]ASN (SBHLAB)[address] Potassium [Moles/Vol] 3.5 mmol/L Normal 3.5-5.1 [facility] Comment on above: Result Comment: Plas ok potassium values may be up to 0.5 mmol/L lower than serum values. Performed By: #### L AB17, [id number] ####Veneer Stock Layer: NATALIE SIMONDANIEL ([id number])[facility]ENTERA [facility] (SBHLAB)[address] Protein [Mass/Vol] 6.8 g/dL Normal 6.4-8.3 [facility] Comment on above: Performed By: #### L [id number], [id number] ####Veneer Stock Layer: NATALIE SIMONDANIEL ([id number])[facility] [place] (SBHLAB)[address] Sodium [Moles/Vol] 134 mmol/L Low 136-145 [facility] Comment on above: Performed By: #### L [id number], [id number] ####Veneer Stock Layer: NATALIE SIMONDANIEL ([id number])[facility]A [facility] (SBHLAB)[address] Urea nitrogen [Mass/Vol] 39 mg/dL High 9-23 [facility] Comment on above: Performed By: #### L [id number], [id number] ####Veneer Stock Layer: NATALIE SIMONDANIEL ([id number])[facility] (SB[facility]AB)[address] Comprehensive metabolic 1998 panelon 06-13-2025 Albumin [Mass/Vol] 2.3 g/dL Low 3.4 - 4.8 g/dL [facility] ALP [Catalytic activity/Vol] 127 U/L 40 - 150 U/L [facility] ALT [Catalytic activity/Vol] 12 U/L NINF - 30 U/L [facility] Anion gap [Moles/Vol] 12 mmol/L 3 - 13 mmol/L [facility] AST [Catalytic activity/Vol] 22 U/L NINF - 34 U/L [facility] Bilirubin [Mass/Vol] 0.8 mg/dL NINF - 1.2 mg/dL [facility] Calcium [Mass/Vol] 9.3 mg/dL 8.8 - 10. 0 mg/dL [facility] Chloride [Moles/Vol] 97 mmol/L Low 98 - 10 7 mmol/L [facility] CO2 [Moles/Vol] 25 mmol/L 23 - 31 mmol/L [facility] Creatinine [Mass/Vol] 3.37 mg/dL High 0.57 - 1.11 mg/dL [facility] GFR/1.73 sq M.predicted (S/P/Bld) [Vol rate/Area] 13.5 mL/min Low - PINF [facility] Glucose [Mass/Vol] 56 mg/dL Low 82 - 115 mg/dL [facility] Interpretation and review of laboratory results Abnormal [facility] Potassium [Moles/Vol] 3.5 mmol/L 3.5 - 5.1 mmol/L [facility] Protein [Mass/Vol] 6.8 g/dL 6.4 - 8.3 g/dL [facility] Sodium [Moles/Vol] 134 mmol/L Low 136 - 145 mmol/L [facility] Urea nitrogen [Mass/Vol] 39 mg/dL High 9 - 23 mg/dL [facility] Laboratory - Chemistry and C hemistry - challengeon 06-13-2025 Glucose [Mass/Vol] 108 mg/dL High 70 - 100 mg/dL [facility] Glucose [Mass/Vol] 108 mg/dL High 70 - 100 mg/dL [facility] Glucose [Mass/Vol] 107 mg/dL High 70 - 100 mg/dL [facility] Glucose [Mass/Vol] 122 mg/dL High 70 - 100 mg/dL [facility] Magnesium [Mass/Vol] 2 mg/dL 1.6 - 2 .6 mg/dL [facility] Glucose [Mass/Vol] 67 mg/dL Low 70 - 100 mg/dL [facility] Glucose [Mass/Vol] 123 mg/dL High 70 - 100 mg/dL [facility] Laboratory - Microbiology an d Antimicrobial susceptibilityOrdered By: Rachel Schmitt on 06-13-2025 Bacteria identified Aer cx Nom (Unsp spec) Few respiratory dave present. [facility] Bacteria identified Aer cx Nom (Unsp spec) Rare Pseudomonas aeruginosa Abnormal [facility] MAGNESIUMon 06-13-2025 Magnesium [Mass/Vol] 2.0 mg/dL Normal 1.6-2.6 [facility] Comment on above: Result Comment: ORDE R COMMENTS:Higher values can be expected in females during menses. Performed By: #### L AB17, [id number] ####Veneer Stock Layer: NATALIE GARCIA ([id number])[facility] MELISSA ([facility])[address] [place] [address] Magnesium [Mass/Vol]on 06-13 Interpretation and review of [...] Hospital Nursing Noteon 06-13-2025 Nursing Note Normal [facility] Nursing Note Normal [facility] Progress Noteon 06-13-2025 Progress Note [facility] Progress Note Normal [facility] Progress Note [facility] Progress Note Normal [facility] Progress Note [facility] [id number] 06-12-2025 [id number] Sent updated notes t o return back to [facility] [place] via [employer] per TCC request. Await review and response regarding ability to accept. TCC notified. Normal [facility] [phone] Normal [facility] Bacteria identified Aer cx N om (Lower resp)Ordered By: Uma Mcgarry on 06-12-2025 Gram Stain Result Many Polymorphonuclear leukocytes per low power field Abnormal [facility] Gram Stain Result Rare Epithelial cell s per low power field Abnormal [facility] Gram Stain Result Negative Abnormal [facility] ealth Gram Stain Result Positive Abnormal [facility] ealth Interpretation and review of laboratory results Abnormal [facility] Bacteria identified Anaer cx Nom (Unsp spec)Ordered By: Brooklyn Ramos on 06-12-2025 Interpretation and review of laboratory results Normal [facility] Bacteria identified Cx Nom ( Bld)on 06-12-2025 Interpretation and review of laboratory results Normal [facility] CBC (HEMOGRAM)on 06-12-2025 Erythrocyte distribution width (RBC) [Ratio] 18.3 % High 11.5-15.0 [facility] Comment on above: Performed By: #### L [id number] ####Veneer Stock Layer: NATALIE GARCIA ([id number])[facility]ALLa[facility] (SBAB)[address] [place] [address] Hematocrit (Bld) [Volume fraction] 25.0 % Low 35.0-47.0 [facility] Comment on above: Performed By: #### L [id number] ####Veneer Stock Layer: NATALIE GARCIA ([id number])[facility] ([facility])[address] [place] [address] Hemoglobin (Bld) [Mass/Vol] 7.9 g/dL Low 11.7-16.0 [facility] Comment on above: Performed By: #### L [id number] ####Veneer Stock Layer: NATALIE GARCIA ([id number])[facility] ([facility])[address] [place] [address] MCH (RBC) [Entitic mass] 26.5 pg Normal 26.0-34.0 [facility] Comment on above: Performed By: #### L [id number] ####Veneer Stock Layer: NATALIE GARCIA ([id number])[facility] ([facility])[address] [place] [address] MCHC 31.6 % Normal 30.5-36.0 [facility] Comment on above: Performed By: #### L [id number] ####Veneer Stock Layer: NATALIE GARCIA ([id number])[facility] ([facility])[address] [place] [address] MCV (RBC) [Entitic vol] 83.9 fL Normal 77.0-99.0 [facility] Comment on above: Performed By: #### L [id number] ####Veneer Stock Layer: NATALIE GARCIA ([id number])[facility]ENTERJosé Miguel [place] (SBHLAB)[address] Platelet mean volume (Bld) [Entitic vol] 9.6 fL Normal 9.0-12.7 [facility] Comment on above: Performed By: #### L [id number] ####Veneer Stock Layer: NATALIE JOSE ([id number])[facility] CENTERJosé Miguel REHMANNEW MEXICO BEHAVIORAL HEALTH INSTITUTE AT L[facility] VEGASN (SBHLAB)[address] Platelets (Bld) [#/Vol] 224 10*3/uL Normal 140-440 [facility] Comment on above: Performed By: #### L [id number] ####Veneer Stock Layer: NATALIE DENISETRICIA ([id number])[facility] (SBHLAB)[address] RBC (Bld) [#/Vol] 2.98 10*6/uL Low 3.80-5.20 [facility] Comment on above: Performed By: #### L [id number] ####Veneer Stock Layer: NATALIE DENISETRICIA ([id number])[facility] (SBHLAB)[address] [place] [address] WBC (Bld) [#/Vol] 6.9 10*3/uL Normal 3.6-10.7 [facility] Comment on above: Performed By: #### L [id number] ####Veneer Stock Layer: NATALIE GARCIA ([id number])[facility] (SBHLAB)[address] CBC panel Auto (Bld)on 06-12 Erythrocyte distribution width (RBC) [Ratio] 18.3 % High 11.5 - 15.0 % [facility] Hematocrit (Bld) [Volume fraction] 25 % Low 35.0 - 47.0 % [facility] Hemoglobin (Bld) [Mass/Vol] 7.9 g/dL Low 11.7 - 16.0 g/dL [facility] Interpretation and review of laboratory results Abnormal [facility] MCH (RBC) [Entitic mass] 26.5 pg 26.0 - 34.0 pg [facility] MCHC (RBC) [Mass/Vol] 31.6 % 30.5 - 36.0 % [facility] MCV (RBC) [Entitic vol] 83.9 fL 77.0 - 99.0 fL [facility] Platelet mean volume (Bld) [Entitic vol] 9.6 fL 9.0 - 12.7 fL [facility] Platelets (Bld) [#/Vol] 224 10*3/uL 140 - 440 10*3/uL [facility] RBC (Bld) [#/Vol] 2.98 10*6/uL Low 3.80 - 5.2 0 10*6/uL [facility] WBC (Bld) [#/Vol] 6.9 10*3/uL 3.6 - 10.7 10*3/uL [facility] COMPREHENSIVE METABOLIC PANE Florentin 06-12-2025 Albumin [Mass/Vol] 2.2 g/dL Low 3.4-4.8 [facility] Comment on above: Performed By: #### L [id number] ####Veneer Stock Layer: NATALIE GARCIA ([id number])[facility] ([facility])[address] [place] [address] ALP [Catalytic activity/Vol] 115 U/L Normal 40-150 [facility] Comment on above: Performed By: #### L [id number] ####Veneer Stock Layer: NATALIE GARCIA ([id number])[facility] ([facility])[address] ALT [Catalytic activity/Vol] 9 U/L Normal <30 [facility] Comment on above: Performed By: #### L [id number] ####Veneer Stock Layer: NATALIE GARCIA ([id number])[facility] ([facility] Anion gap [Moles/Vol] 12 mmol/L Normal 3-13 [facility] Comment on above: Performed By: #### L [id number] ####Veneer Stock Layer: NATALIE GARCIA ([id number])[facility] AST [Catalytic activity/Vol] 21 U/L Normal <34 [facility] Comment on above: Performed By: #### L [id number] ####Veneer Stock Layer: NATALIE GARCIA ([id number])[facility] (SBHLAB)[address] Bilirubin [Mass/Vol] 0.7 mg/dL Normal <1.2 [facility] Comment on above: Performed By: #### L [id number] ####Veneer Stock Layer: NATALIE GARCIA ([id number])[facility] [place] (SBHLAB)[address] Calcium [Mass/Vol] 8.7 mg/dL Low 8.8-10.0 [facility] Comment on above: Performed By: #### L [id number] ####Veneer Stock Layer: NATALIE GARCIA ([id number])[facility] MONTENEGROLaurel (SBHLAB)[address] Chloride [Moles/Vol] 98 mmol/L Normal 98-107 [facility] Comment on above: Performed By: #### L [id number] ####Veneer Stock Layer: NATALIE GARCIA ([id number])[facility]ENTERJos[facility]MANNEW [facility]EXICO [facility] (SBHLAB)[address] CO2 [Moles/Vol] 27 mmol/L Normal 23-[address] [facility] Comment on above: Performed By: #### L [id number] ####Veneer Stock Layer: NATALIE GARCIA ([id number])[facility]ENTERJos[facility] Miguel BARBNEW MEXICO BE[facility] AT L[facility] VEGASN (SBHLAB)[address] Creatinine [Mass/Vol] 2.53 mg/dL High 0.57-1.11 [facility] Comment on above: Performed By: #### L [id number] ####Veneer Stock Layer: NATALIE GARCIA ([id number])[facility]ENTERJos[facility] Miguel REHMANNEW MEXICO BEH[facility] HE[facility] INSTITUTE AT L[facility] VEGASLaurel (SBHLAB)[address] GLOMERULAR FILTRATION RATE ML/MIN/1.73 SQ M.PREDICTED 19.1 mL/min/1.73m*2 Low >60.0 [facility] Comment on above: Result Comment: Calc ulation based on the Chronic Kidney Disease Epidemiology Collaboration (CKD-EPI) equation refit without adjustment for race Performed By: #### L [id number] ####Veneer Stock Layer: NATALIE GARCIA ([id number])[facility] BARBELIAS (SBHLAB)[address] Glucose [Mass/Vol] 165 mg/dL High 82-115 [facility] Comment on above: Performed By: #### L [id number] ####Veneer Stock Layer: NATALIE GARCIA ([id number])[facility]ENTERA [facility]ALLa[facility] (SBHLAB)[address] Potassium [Moles/Vol] 3.7 mmol/L Normal 3.5-5.1 [facility] Comment on above: Result Comment: [facility] potassium values may be up to 0.5 mmol/L lower than serum values. Performed By: #### L [id number] ####Veneer Stock Layer: NATALIE GARCIA ([id number])[facility]ENTERA BARBNEW MEXICO [facility] IN[facility] AT L[facility] VE[facility]ASN (SBHLAB)[address] Protein [Mass/Vol] 6.4 g/dL Normal 6.4-8.3 [facility] Comment on above: Performed By: #### L [id number] ####Veneer Stock Layer: NATALIE GARCIA ([id number])[facility]BCHANDLER [facility] (SBHLAB)[address] Sodium [Moles/Vol] 137 mmol/L Normal 136-145 [facility] Comment on above: Performed By: #### L [id number] ####Veneer Stock Layer: NATALIE GARCIA ([id number])[facility] BARBNEW MEXICO BEHAVIOR[facility] INSTITUTE AT L[facility] VEGASN (SBHLAB)[address] [place] [address] [place] Urea nitrogen [Mass/Vol] 26 mg/dL High 9-23 [facility] Comment on above: Performed By: #### L [id number] ####Veneer Stock Layer: NATALIE GARCIA ([id number])[facility] ([facility])[address] Comprehensive metabolic 1998 panelOrdered By: Armando Viramontes on 06-12-2025 Albumin [Mass/Vol] 2.2 g/dL Low 3.4 - 4.8 g/dL [facility] ALP [Catalytic activity/Vol] 115 U/L 40 - 150 U/L [facility] ALT [Catalytic activity/Vol] 9 U/L NINF - 30 U/L [facility] Anion gap [Moles/Vol] 12 mmol/L 3 - 13 mmol/L [facility] AST [Catalytic activity/Vol] 21 U/L NINF - 34 U/L [facility] Bilirubin [Mass/Vol] 0.7 mg/dL NINF - 1.2 mg/dL [facility] Calcium [Mass/Vol] 8.7 mg/dL Low 8.8 - 10. 0 mg/dL [facility] Chloride [Moles/Vol] 98 mmol/L 98 - 10 7 mmol/L [facility] CO2 [Moles/Vol] 27 mmol/L 23 - 31 mmol/L [facility] Creatinine [Mass/Vol] 2.53 mg/dL High 0.57 - 1.11 mg/dL [facility] GFR/1.73 sq M.predicted (S/P/Bld) [Vol rate/Area] 19.1 mL/min Low - PINF [facility] Glucose [Mass/Vol] 165 mg/dL High 82 - 115 mg/dL [facility] Interpretation and review of laboratory results Abnormal [facility] Potassium [Moles/Vol] 3.7 mmol/L 3.5 - 5.1 mmol/L [facility] Protein [Mass/Vol] 6.4 g/dL 6.4 - 8.3 g/dL [facility] Sodium [Moles/Vol] 137 mmol/L 136 - 145 mmol/L [facility] Urea nitrogen [Mass/Vol] 26 mg/dL High 9 - 23 mg/dL [facility] Laboratory - Chemistry and C hemistry - challengeon 06-12-2025 Glucose [Mass/Vol] 157 mg/dL High 70 - 100 mg/dL [facility] Glucose [Mass/Vol] 147 mg/dL High 70 - 100 mg/dL [facility] Glucose [Mass/Vol] 165 mg/dL High 70 - 100 mg/dL [facility] Glucose [Mass/Vol] 171 mg/dL High 70 - 100 mg/dL [facility] Glucose [Mass/Vol] 166 mg/dL High 70 - 100 mg/dL [facility] Laboratory - Microbiology an d Antimicrobial susceptibilityOrdered By: Brooklyn Ramos on 06-12-2025 Bacteria identified Anaer cx Nom (Unsp spec) No growth at 5 days [facility] Laboratory - Microbiology an d Antimicrobial susceptibilityon 06-12-2025 Bacteria identified Cx Nom (Bld) No growth at 5 days [facility] Laboratory - Microbiology an d Antimicrobial susceptibilityOrdered By: Uma Mcgarry on 06-12-2025 Bacteria identified Aer cx Nom (Lower resp) Few respiratory dave present. [facility] Bacteria identified Aer cx Nom (Lower resp) Moderate Serratia marcescens Abnormal [facility] Bacteria identified Aer cx Nom (Lower resp) Moderate Stenotrophomonas maltophilia Abnormal [facility] Bacteria identified Aer cx Nom (Lower resp) Moderate Pseudomonas aeruginosa Abnormal [facility] No Panel Informationon 06-12 Interpretation and review of laboratory results Abnormal [facility] Interpretation and review of laboratory results Abnormal [facility] Interpretation and review of laboratory results Abnormal [facility] RADIOLOGY SYSTEM [facility] Radiology Study observation (narrative) [facility] Interpretation and review of laboratory results Abnormal [facility] Interpretation and review of laboratory results Abnormal [facility] No Panel InformationOrdered By: Yamil Newby on 06-12-2025 [facility] Work Phone: Nursing Noteon 06-12-2025 Nursing Note Normal [facility] Nursing Note Patient arrived from [facility] on vent to [facility], verbal consent was obtained. Patient was placed supine on exam table prepped and draped in sterile fashion. Telemetry monitors placed, vitals monitored. Normal [facility] Progress Noteon 06-12-2025 [facility] Progress [facility] Progress [facility] Progress Note [facility] [id number] 06-11-2025 [id number] Normal [facility] Bacteria identified Aer cx N om (Unsp spec)on 06-11-2025 Gram Stain Result Few Polymorphonuclea r leukocytes per low power field [facility] Gram Stain Result No organisms seen [facility] CBC (HEMOGRAM)on 06-11-2025 Erythrocyte distribution width (RBC) [Ratio] 18.0 % High 11.5-15.0 [facility] Comment on above: Performed By: #### L [id number] ####Veneer Stock Layer: NATALIE GARCIA ([id number])[facility]ENTERJos[facility] REHMANELIAS (SBHLAB)[address] Hematocrit (Bld) [Volume fraction] 25.8 % Low 35.0-47.0 [facility] Comment on above: Performed By: #### L [id number] ####Veneer Stock Layer: NATALIE GARCIA ([id number])[facility] (SBHLAB)[address] Hemoglobin (Bld) [Mass/Vol] 8.3 g/dL Low 11.7-16.0 [facility] Comment on above: Performed By: #### L [id number] ####Veneer Stock Layer: NATALIE GARCIA ([id number])[facility]ENTERJos[facility] Miguel [facility]ELIAS (SBHLAB)[address] MCH (RBC) [Entitic mass] 26.3 pg Normal 26.0-34.0 [facility] Comment on above: Performed By: #### L [id number] ####Veneer Stock Layer: NATALIE GARCIA ([id number])[facility]ENTERJosé Miguel [facility] (SBHLAB)[address] MCHC 32.2 % Normal 30.5-36.0 [facility] Comment on above: Performed By: #### L [id number] ####Veneer Stock Layer: NATALIE GARCIA ([id number])[facility]ENTERJos[facility] Miguel [facility]ELIAS (SBHLAB)[address] MCV (RBC) [Entitic vol] 81.6 fL Normal 77.0-99.0 [facility] Comment on above: Performed By: #### L [id number] ####Veneer Stock Layer: NATALIE GARCIA ([id number])[facility]ENTERJos[facility] Miguel [facility]ELIAS (SBHLAB)[address] Platelet mean volume (Bld) [Entitic vol] 9.5 fL Normal 9.0-12.7 [facility] Comment on above: Performed By: #### L [id number] ####Veneer Stock Layer: NATALIE GARCIA ([id number])[facility]ENTERJosé Miguel REHMANNEW MEXICO BEH[facility] HE[facility] INSTITUTE AT L[facility] VEGASLaurel (SBHLAB)[address] Platelets (Bld) [#/Vol] 235 10*3/uL Normal 140-440 [facility] Comment on above: Performed By: #### L [id number] ####Veneer Stock Layer: NATALIE GARCIA ([id number])[facility] (SBHLAB)[address] RBC (Bld) [#/Vol] 3.16 10*6/uL Low 3.80-5.20 [facility] Comment on above: Performed By: #### L [id number] ####Veneer Stock Layer: NATALIE GARCIA ([id number])[facility]ENTERJosé Miguel [facility] (SBHLAB)[address] WBC (Bld) [#/Vol] 7.4 10*3/uL Normal 3.6-10.7 [facility] Comment on above: Performed By: #### L [id number] ####Veneer Stock Layer: NATALIE GARCIA ([id number])[facility] (SBHLAB)[address] CBC panel Auto (Bld)on 06-11 Erythrocyte distribution width (RBC) [Ratio] 18 % High 11.5 - 15.0 % [facility] Hematocrit (Bld) [Volume fraction] 25.8 % Low 35.0 - 47.0 % [facility] Hemoglobin (Bld) [Mass/Vol] 8.3 g/dL Low 11.7 - 16.0 g/dL [facility] Interpretation and review of laboratory results Abnormal [facility] MCH (RBC) [Entitic mass] 26.3 pg 26.0 - 34.0 pg [facility] MCHC (RBC) [Mass/Vol] 32.2 % 30.5 - 36.0 % [facility] MCV (RBC) [Entitic vol] 81.6 fL 77.0 - 99.0 fL [facility] Platelet mean volume (Bld) [Entitic vol] 9.5 fL 9.0 - 12.7 fL [facility] Platelets (Bld) [#/Vol] 235 10*3/uL 140 - 440 10*3/uL [facility] RBC (Bld) [#/Vol] 3.16 10*6/uL Low 3.80 - 5.2 0 10*6/uL [facility] WBC (Bld) [#/Vol] 7.4 10*3/uL 3.6 - 10.7 10*3/uL [facility] COMPREHENSIVE METABOLIC PANE Florentin 06-11-2025 Albumin [Mass/Vol] 2.3 g/dL Low 3.4-4.8 [facility] Comment on above: Performed By: #### L [id number] ####Veneer Stock Layer: NATALIE GARCIA ([id number])[facility] (SBHLAB)[address] ALP [Catalytic activity/Vol] 117 U/L Normal 40-150 [facility] Comment on above: Performed By: #### L [id number] ####Veneer Stock Layer: NATALIE GARCIA ([id number])[facility] (SBHLAB)[address] ALT [Catalytic activity/Vol] 12 U/L Normal <30 [facility] Comment on above: Performed By: #### L [id number] ####Veneer Stock Layer: NATALIE GARCIA ([id number])[facility] (SBHLAB)[address] Anion gap [Moles/Vol] 11 mmol/L Normal 3-13 [facility] Comment on above: Performed By: #### L [id number] ####Veneer Stock Layer: NATALIE GARCIA ([id number])[facility] (SBHLAB)[address] AST [Catalytic activity/Vol] 26 U/L Normal <34 [facility] Comment on above: Performed By: #### L [id number] ####Veneer Stock Layer: NATALIE GARCIA ([id number])[facility] [place] (SBHLAB)[address] Bilirubin [Mass/Vol] 0.8 mg/dL Normal <1.2 [facility] Comment on above: Performed By: #### L [id number] ####Veneer Stock Layer: NATALIE GARCIA ([id number])[facility]ENTERA [place] (SBHLAB)[address] Calcium [Mass/Vol] 9.2 mg/dL Normal 8.8-10.0 [facility] Comment on above: Performed By: #### L [id number] ####Veneer Stock Layer: NATALIE GARCIA ([id number])[facility]ENTERA BARBMAGNUSN (SBHLAB)[address] Chloride [Moles/Vol] 99 mmol/L Normal 98-107 [facility] Comment on above: Performed By: #### L [id number] ####Veneer Stock Layer: NATALIE GARCIA ([id number])[facility] [place] (SBHLAB)[address] CO2 [Moles/Vol] 22 mmol/L Low 23-[address] [facility] Comment on above: Performed By: #### L [id number] ####Veneer Stock Layer: NATALIE GARCIA ([id number])[facility]A [place] (SBHLAB)[address] Creatinine [Mass/Vol] 4.10 mg/dL High 0.57-1.11 [facility] Comment on above: Performed By: #### L [id number] ####Veneer Stock Layer: NATALIE GARCIA ([id number])[facility]A [place] (SBHLAB)[address] GLOMERULAR FILTRATION RATE ML/MIN/1.73 SQ M.PREDICTED 10.7 mL/min/1.73m*2 Low >60.0 [facility] Comment on above: Result Comment: Calc ulation based on the Chronic Kidney Disease Epidemiology Collaboration (CKD-EPI) equation refit without adjustment for race Performed By: #### L [id number] ####Veneer Stock Layer: NATALIE GARCIA ([id number])[facility]ENTERJosé Miguel REHMANELIAS (SBHLAB)[address] Glucose [Mass/Vol] 149 mg/dL High 82-115 [facility] Comment on above: Performed By: #### L [id number] ####Veneer Stock Layer: NATALIE GARCIA ([id number])[facility]ENTERA [facility]BCHANDLER [facility] (SBHLAB)[address] Potassium [Moles/Vol] 3.9 mmol/L Normal 3.5-5.1 [facility] Comment on above: Result Comment: [facility] potassium values may be up to 0.5 mmol/L lower than serum values. Performed By: #### L [id number] ####Veneer Stock Layer: NATALIE GARCIA ([id number])[facility] (SBHLAB)[address] Protein [Mass/Vol] 6.6 g/dL Normal 6.4-8.3 [facility] Comment on above: Performed By: #### L [id number] ####Veneer Stock Layer: NATALIE GARCIA ([id number])[facility] (HLAB)[address] Sodium [Moles/Vol] 132 mmol/L Low 136-145 [facility] Comment on above: Performed By: #### L [id number] ####Veneer Stock Layer: NATALIE GARCIA ([id number])[facility] (SBHLAB)[address] [place] [address] [place] Urea nitrogen [Mass/Vol] 49 mg/dL High 9-23 [facility] Comment on above: Performed By: #### L [id number] ####Veneer Stock Layer: NATALIE GARCIA ([id number])[facility] (SBHLAB)[address] Comprehensive metabolic 1998 panelon 06-11-2025 Albumin [Mass/Vol] 2.3 g/dL Low 3.4 - 4.8 g/dL [facility] ALP [Catalytic activity/Vol] 117 U/L 40 - 150 U/L [facility] ALT [Catalytic activity/Vol] 12 U/L NINF - 30 U/L [facility] Anion gap [Moles/Vol] 11 mmol/L 3 - 13 mmol/L [facility] AST [Catalytic activity/Vol] 26 U/L NINF - 34 U/L [facility] Bilirubin [Mass/Vol] 0.8 mg/dL NINF - 1.2 mg/dL [facility] Calcium [Mass/Vol] 9.2 mg/dL 8.8 - 10. 0 mg/dL [facility] Chloride [Moles/Vol] 99 mmol/L 98 - 10 7 mmol/L [facility] CO2 [Moles/Vol] 22 mmol/L Low 23 - 31 mmol/L [facility] Creatinine [Mass/Vol] 4.1 mg/dL High 0.57 - 1.11 mg/dL [facility] GFR/1.73 sq M.predicted (S/P/Bld) [Vol rate/Area] 10.7 mL/min Low - PINF [facility] Glucose [Mass/Vol] 149 mg/dL High 82 - 115 mg/dL [facility] Interpretation and review of laboratory results Abnormal [facility] Potassium [Moles/Vol] 3.9 mmol/L 3.5 - 5.1 mmol/L [facility] Protein [Mass/Vol] 6.6 g/dL 6.4 - 8.3 g/dL [facility] Sodium [Moles/Vol] 132 mmol/L Low 136 - 145 mmol/L [facility] Urea nitrogen [Mass/Vol] 49 mg/dL High 9 - 23 mg/dL [facility] Laboratory - Chemistry and C hemistry - challengeon 06-11-2025 Glucose [Mass/Vol] 192 mg/dL High 70 - 100 mg/dL [facility] Glucose [Mass/Vol] 199 mg/dL High 70 - 100 mg/dL [facility] Glucose [Mass/Vol] 139 mg/dL High 70 - 100 mg/dL [facility] Glucose [Mass/Vol] 163 mg/dL High 70 - 100 mg/dL [facility] Laboratory - Microbiology an d Antimicrobial susceptibilityon 06-11-2025 Bacteria identified Aer cx Nom (Unsp spec) No growth at 4 days [facility] No Panel Informationon 06-11 Interpretation and review of laboratory results Abnormal [facility] Interpretation and review of laboratory results Abnormal [facility] Interpretation and review of laboratory results Abnormal [facility] Interpretation and review of laboratory results Abnormal [facility] Nursing Noteon 06-11-2025 Nursing Note Normal [facility] Progress Noteon 06-11-2025 Progress [facility] Progress Note Normal [facility] BLOOD TYPE AND SCREEN GELon 06-10-2025 ABO GROUPING A Normal [facility] Comment on above: Performed By: #### L [id number] ####Veneer Stock Layer: NATALIE GARCIA ([id number])[facility] BLOOD BANK ([facility])[address] [place] [address] RH TYPE IN BLOOD Positive Normal [facility] Comment on above: Performed By: #### L [id number] ####Veneer Stock Layer: NATALIE GARCIA ([id number])[facility] BLOOD [facility] ([facility])[address] [place] [address] Blood type and Crossmatch pa yordy (Bld)on 06-10-2025 ABO group Nom (Bld) A [facility] Blood group antibody screen GEL Ql Negative [facility] D Ag Ql (RBC) Positive [facility] CBC (HEMOGRAM)on 06-10-2025 Erythrocyte distribution width (RBC) [Ratio] 19.1 % High 11.5-15.0 [facility] Comment on above: Performed By: #### L [id number] ####Veneer Stock Layer: NATALIE GARCIA ([id number])[facility] ([facility])[address] Hematocrit (Bld) [Volume fraction] 22.4 % Low 35.0-47.0 [facility] Comment on above: Performed By: #### L [id number] ####Veneer Stock Layer: NATALIE GARCIA ([id number])ELOINA REHMANELIAS (SBHLAB)[address] Hemoglobin (Bld) [Mass/Vol] 6.8 g/dL Critically low 11.7-16.0 [facility] Comment on above: Performed By: #### L [id number] ####Veneer Stock Layer: NATALIE GARCIA ([id number])[facility]MANELI[facility] (SBHLAB)[address] MCH (RBC) [Entitic mass] 25.7 pg Low 26.0-34.0 [facility] Comment on above: Performed By: #### L [id number] ####Veneer Stock Layer: NATALIE GARCIA ([id number])[facility]ENTERJos[facility] Miguel MONTENEGROLaurel (SBAB)[address] MCHC 30.4 % Low 30.5-36.0 [facility] Comment on above: Performed By: #### L [id number] ####Veneer Stock Layer: NATALIE GARCIA ([id number])[facility]ENTERJos[facility] REHMANELIAS (SBHLAB)[address] MCV (RBC) [Entitic vol] 84.5 fL Normal 77.0-99.0 [facility] Comment on above: Performed By: #### L [id number] ####Veneer Stock Layer: NATALIE GARCIA ([id number])[facility]ENTERJos[facility] REHMANELIAS (SBHLAB)[address] Platelet mean volume (Bld) [Entitic vol] 9.7 fL Normal 9.0-12.7 [facility] Comment on above: Performed By: #### L [id number] ####Veneer Stock Layer: NATALIE GARCIA ([id number])[facility]ENTERJos[facility] REHMANELIAS (SBHLAB)[address] Platelets (Bld) [#/Vol] 228 10*3/uL Normal 140-440 [facility] Comment on above: Performed By: #### L [id number] ####Veneer Stock Layer: NATALIE GARCIA ([id number])[facility]ENTERJosé Miguel REHMANNEW MEXICO BEHAVIORAL HEALTH INSTITUTE AT LAS VEGASLaurel (SBHLAB)[address] RBC (Bld) [#/Vol] 2.65 10*6/uL Low 3.80-5.20 [facility] Comment on above: Performed By: #### L [id number] ####Veneer Stock Layer: NATALIE GARCIA ([id number])[facility]ENTERJosé Miguel [facility]CHANDLER [facility] (SBHLAB)[address] WBC (Bld) [#/Vol] 6.4 10*3/uL Normal 3.6-10.7 [facility] Comment on above: Performed By: #### L [id number] ####Veneer Stock Layer: NATALIE GARCIA ([id number])[facility]ARCHANDL[facility] (SBHLAB)[address] [place] [address] CBC panel Auto (Bld)on 06-10 Erythrocyte distribution width (RBC) [Ratio] 19.1 % High 11.5 - 15.0 % [facility] SCVNGR Hematocrit (Bld) [Volume fraction] 22.4 % Low 35.0 - 47.0 % [facility] Hemoglobin (Bld) [Mass/Vol] 6.8 g/dL Critically low 11.7 - 16.0 g/dL [facility] Interpretation and review of laboratory results Abnormal [facility] MCH (RBC) [Entitic mass] 25.7 pg Low 26.0 - 34.0 pg [facility] MCHC (RBC) [Mass/Vol] 30.4 % Low 30.5 - 36.0 % [facility] MCV (RBC) [Entitic vol] 84.5 fL 77.0 - 99.0 fL [facility] SCVNGR Platelet mean volume (Bld) [Entitic vol] 9.7 fL 9.0 - 12.7 fL [facility] SCVNGR Platelets (Bld) [#/Vol] 228 10*3/uL 140 - 440 10*3/uL [facility] RBC (Bld) [#/Vol] 2.65 10*6/uL Low 3.80 - 5.2 0 10*6/uL [facility] WBC (Bld) [#/Vol] 6.4 10*3/uL 3.6 - 10.7 10*3/uL [facility] COMPREHENSIVE METABOLIC PANE Florentin 06-10-2025 Albumin [Mass/Vol] 2.3 g/dL Low 3.4-4.8 [facility] Comment on above: Performed By: #### L [id number] ####Veneer Stock Layer: NATALIE GARCIA ([id number])[facility] [place] (SBHLAB)[address] ALP [Catalytic activity/Vol] 112 U/L Normal 40-150 [facility] Comment on above: Performed By: #### L [id number] ####Veneer Stock Layer: NATALIE GARCIA ([id number])[facility] [place] (SBHLAB)[address] ALT [Catalytic activity/Vol] 10 U/L Normal <30 [facility] Comment on above: Performed By: #### L [id number] ####Veneer Stock Layer: NATALIE GARCIA ([id number])[facility] [place] (SBHLAB)[address] Anion gap [Moles/Vol] 10 mmol/L Normal 3-13 [facility] Comment on above: Performed By: #### L [id number] ####Veneer Stock Layer: NATALIE GARCIA ([id number])[facility] [place] (SBHLAB)[address] AST [Catalytic activity/Vol] 25 U/L Normal <34 [facility] Comment on above: Performed By: #### L [id number] ####Veneer Stock Layer: NATALIE GARCIA ([id number])[facility] [place] (SBHLAB)[address] [place] [address] [place] Bilirubin [Mass/Vol] 0.5 mg/dL Normal <1.2 [facility] Comment on above: Performed By: #### L [id number] ####Veneer Stock Layer: NATALIE GARCIA ([id number])[facility] [place] (SBHLAB)[address] Calcium [Mass/Vol] 9.0 mg/dL Normal 8.8-10.0 [facility] Comment on above: Performed By: #### L [id number] ####Veneer Stock Layer: NATALIE GARCIA ([id number])[facility]ENTER[facility] Miguel REHMANELI[place] (SBHLAB)[address] Chloride [Moles/Vol] 99 mmol/L Normal 98-107 [facility] Comment on above: Performed By: #### L [id number] ####Veneer Stock Layer: NATALIE GARCIA ([id number])[facility]ENTERJosé Miguel [facility]BNEW [facility]ASN (SBHLAB)[address] CO2 [Moles/Vol] 25 mmol/L Normal 23-[address] [facility] Comment on above: Performed By: #### L [id number] ####Veneer Stock Layer: NATALIE GARCIA ([id number])[facility] ([facility] Creatinine [Mass/Vol] 3.44 mg/dL High 0.57-1.11 [facility] Comment on above: Performed By: #### L [id number] ####Veneer Stock Layer: NATALIE GARCIA ([id number])[facility]ENTER[facility] [place] ([facility])[address] GLOMERULAR FILTRATION RATE ML/MIN/1.73 SQ M.PREDICTED 13.2 mL/min/1.73m*2 Low >60.0 [facility] Comment on above: Result Comment: Calc ulation based on the Chronic Kidney Disease Epidemiology Collaboration (CKD-EPI) equation refit without adjustment for race Performed By: #### L [id number] ####Veneer Stock Layer: NATALIE GARCIA ([id number])[facility]ENTERJosé Miguel [place] (SBHLAB)[address] [place] [address] [place] Glucose [Mass/Vol] 121 mg/dL High 82-115 [facility] Comment on above: Performed By: #### L [id number] ####Veneer Stock Layer: NATALIE GARCIA ([id number])[facility]ENTERJosé Miguel [facility] ([facility])[address] [place] [address] [place] Potassium [Moles/Vol] 3.9 mmol/L Normal 3.5-5.1 [facility] Comment on above: Result Comment: [facility] potassium values may be up to 0.5 mmol/L lower than serum values. Performed By: #### L [id number] ####Veneer Stock Layer: NATALIE GARCIA ([id number])[facility] (SBHLAB)[address] Protein [Mass/Vol] 6.4 g/dL Normal 6.4-8.3 [facility] Comment on above: Performed By: #### L [id number] ####Veneer Stock Layer: NATALIE GARCIA ([id number])[facility] [place] (SBHLAB)[address] Sodium [Moles/Vol] 134 mmol/L Low 136-145 [facility] Comment on above: Performed By: #### L [id number] ####Veneer Stock Layer: NATALIE GARCIA ([id number])[facility] [place] (SBHLAB)[address] Urea nitrogen [Mass/Vol] 38 mg/dL High 9-23 [facility] Comment on above: Performed By: #### L [id number] ####Veneer Stock Layer: NATALIE GARCIA ([id number])[facility] (SBHLAB)[address] Comprehensive metabolic 1998 panelon 06-10-2025 Albumin [Mass/Vol] 2.3 g/dL Low 3.4 - 4.8 g/dL [facility] ALP [Catalytic activity/Vol] 112 U/L 40 - 150 U/L [facility] ALT [Catalytic activity/Vol] 10 U/L NINF - 30 U/L [facility] Anion gap [Moles/Vol] 10 mmol/L 3 - 13 mmol/L [facility] AST [Catalytic activity/Vol] 25 U/L NINF - 34 U/L [facility] Bilirubin [Mass/Vol] 0.5 mg/dL NINF - 1.2 mg/dL [facility] Calcium [Mass/Vol] 9 mg/dL 8.8 - 10. 0 mg/dL [facility] Chloride [Moles/Vol] 99 mmol/L 98 - 10 7 mmol/L [facility] CO2 [Moles/Vol] 25 mmol/L 23 - 31 mmol/L [facility] Creatinine [Mass/Vol] 3.44 mg/dL High 0.57 - 1.11 mg/dL [facility] GFR/1.73 sq M.predicted (S/P/Bld) [Vol rate/Area] 13.2 mL/min Low - PINF [facility] Glucose [Mass/Vol] 121 mg/dL High 82 - 115 mg/dL [facility] Interpretation and review of laboratory results Abnormal [facility] Potassium [Moles/Vol] 3.9 mmol/L 3.5 - 5.1 mmol/L [facility] Protein [Mass/Vol] 6.4 g/dL 6.4 - 8.3 g/dL [facility] Sodium [Moles/Vol] 134 mmol/L Low 136 - 145 mmol/L [facility] Urea nitrogen [Mass/Vol] 38 mg/dL High 9 - 23 mg/dL [facility] HEMOGLOBIN AND HEMATOCRIT, B LOODon 06-10-2025 Hematocrit (Bld) [Volume fraction] 25.8 % Low 35.0-47.0 [facility] Comment on above: Order Comment: Recom mend 1 hour post transfusion Performed By: #### L [id number] ####Veneer Stock Layer: NATALIE GARCIA ([id number])[facility] TAMARELIAS ([facility])[address] [place] [address] Hemoglobin (Bld) [Mass/Vol] 8.1 g/dL Low 11.7-16.0 [facility] Comment on above: Order Comment: Recom mend 1 hour post transfusion Performed By: #### L [id number] ####Veneer Stock Layer: NATALIE GARCIA ([id number])[facility] HOSPITALELIAS ([facility])[address] [place] [address] Hemoglobin (Bld) [Mass/Vol]O rdered By: Marguerite Maxwell on 06-10-2025 Hematocrit (Bld) [Volume fraction] 25.8 % Low 35.0 - 47.0 % [facility] Interpretation and review of laboratory results Abnormal [facility] IRON AND TIBCon 06-10-2025 IRON BINDING CAPACITY 188 ug/dL Low 250-450 [facility] Comment on above: Performed By: #### L [id number] ####Veneer Stock Layer: NATALIE GARCIA ([id number])[facility] (SBHLAB)[address] IRON SATURATION 16.5 % Low 20.0-50.[address] [facility] Comment on above: Performed By: #### L [id number] ####Veneer Stock Layer: NATALIE GARCIA ([id number])[facility] (SBHLAB)[address] IRON, TOTAL 31 ug/dL Low 50-170 [facility] Comment on above: Performed By: #### L [id number] ####Veneer Stock Layer: NATALIE GARCIA ([id number])[facility] (SBHLAB)[address] Iron and Iron binding capaci ty panelon 06-10-2025 Interpretation and review of laboratory results Abnormal [facility] Iron [Mass/Vol] 31 ug/dL Low 50 - 170 ug/dL [facility] Iron binding capacity [Mass/Vol] 188 ug/dL Low 250 - 450 ug/dL [facility] Iron saturation [Mass fraction] 16.5 % Low 20.0 - 50.0 % [facility] Laboratory - Chemistry and C hemistry - challengeon 06-10-2025 Glucose [Mass/Vol] 164 mg/dL High 70 - 100 mg/dL [facility] Glucose [Mass/Vol] 157 mg/dL High 70 - 100 mg/dL [facility] Glucose [Mass/Vol] 163 mg/dL High 70 - 100 mg/dL [facility] Glucose [Mass/Vol] 117 mg/dL High 70 - 100 mg/dL [facility] Glucose [Mass/Vol] 103 mg/dL High 70 - 100 mg/dL [facility] Glucose [Mass/Vol] 57 mg/dL Low 70 - 100 mg/dL [facility] Laboratory - Hematology and Cell countsOrdered By: Marguerite Maxwell on 06-10-2025 Hemoglobin (Bld) [Mass/Vol] 8.1 g/dL Low 11.7 - 16.0 g/dL [facility] No Panel Informationon 06-10 Interpretation and review of laboratory results Abnormal [facility] Interpretation and review of laboratory results Abnormal [facility] Interpretation and review of laboratory results Abnormal [facility] Blood Expiration Date [id number] [facility] Crossmatch interpretation COMP [facility] Dispense Status Transfused [facility] Blood Type 6200 [facility] PRODUCT CODE [id number] [facility] Health Unit ABO A [facility] Unit Number [id number] [facility] alth Unit RH Positive [facility] Unit Volume 300 mL [facility] Interpretation and review of laboratory results Abnormal [facility] Interpretation and review of laboratory results Abnormal [facility] Interpretation and review of laboratory results Abnormal [facility] Progress Noteon 06-10-2025 Progress Note [facility] Progress [facility] Normal [facility] Progress Note [facility] Progress [facility] Bacteria identified Cx Nom ( Catheter tip)Ordered By: Alcides Sims on 06-09-2025 Interpretation and review of laboratory results Abnormal [facility] CBC (HEMOGRAM)on 06-09-2025 Erythrocyte distribution width (RBC) [Ratio] 19.1 % High 11.5-15.0 [facility] Comment on above: Performed By: #### L [id number] ####Veneer Stock Layer: NATALIE GARCIA ([id number])[facility] ([facility])[address] [place] [address] Hematocrit (Bld) [Volume fraction] 22.0 % Low 35.0-47.0 [facility] Comment on above: Performed By: #### L [id number] ####Veneer Stock Layer: NATALIE GARCIA ([id number])[facility] ([facility])[address] [place] [address] Hemoglobin (Bld) [Mass/Vol] 6.9 g/dL Critically low 11.7-16.0 [facility] Comment on above: Performed By: #### L [id number] ####Veneer Stock Layer: NATALIE SIMONErlindaTRICIA ([id number])[facility]ENTERJos[facility] REHMANELIAS (SBHLAB)[address] MCH (RBC) [Entitic mass] 25.9 pg Low 26.0-34.0 [facility] Comment on above: Performed By: #### L [id number] ####Veneer Stock Layer: NATALIE DENISETRICIA ([id number])[facility]ENTERJosé Miguel REHMANNEW MEXICO BEHAVIORAL HEALTH INSTITUTE AT LAS VEGASLaurel (SBHLAB)[address] MCHC 31.4 % Normal 30.5-36.0 [facility] Comment on above: Performed By: #### L [id number] ####Veneer Stock Layer: NATALIE JOSE ([id number])[facility]ENTERJosé Miguel REHMANNEW MEXICO BEHAVIORAL HEALTH INSTITUTE AT LAS VEGASLaurel (SBHLAB)[address] [place] [address] MCV (RBC) [Entitic vol] 82.7 fL Normal 77.0-99.0 S [facility] Comment on above: Performed By: #### L [id number] ####Veneer Stock Layer: NATALIE DENISETRICIA ([id number])[facility]ENTERJosé Miguel [facility] (SBHLAB)[address] Platelet mean volume (Bld) [Entitic vol] 9.8 fL Normal 9.0-12.7 [facility] Comment on above: Performed By: #### L [id number] ####Veneer Stock Layer: NATALIE GARCIA ([id number])[facility]ENTERJosé Miguel [facility] (SBHLAB)[address] Platelets (Bld) [#/Vol] 230 10*3/uL Normal 140-440 [facility] Comment on above: Performed By: #### L [id number] ####Veneer Stock Layer: NATALIE DENISETRICIA ([id number])[facility] (SBHLAB)[address] RBC (Bld) [#/Vol] 2.66 10*6/uL Low 3.80-5.20 [facility] Comment on above: Performed By: #### L [id number] ####Veneer Stock Layer: NATALIE GARCIA ([id number])[facility] (SBHLAB)[address] WBC (Bld) [#/Vol] 6.7 10*3/uL Normal 3.6-10.7 [facility] Comment on above: Performed By: #### L [id number] ####Veneer Stock Layer: NATALIE GARCIA ([id number])[facility] (SBHLAB)[address] CBC panel Auto (Bld)on 06-09 Erythrocyte distribution width (RBC) [Ratio] 19.1 % High 11.5 - 15.0 % [facility] Hematocrit (Bld) [Volume fraction] 22 % Low 35.0 - 47.0 % [facility] Hemoglobin (Bld) [Mass/Vol] 6.9 g/dL Critically low 11.7 - 16.0 g/dL [facility] Interpretation and review of laboratory results Abnormal [facility] MCH (RBC) [Entitic mass] 25.9 pg Low 26.0 - 34.0 pg [facility] MCHC (RBC) [Mass/Vol] 31.4 % 30.5 - 36.0 % [facility] MCV (RBC) [Entitic vol] 82.7 fL 77.0 - 99.0 fL [facility] Platelet mean volume (Bld) [Entitic vol] 9.8 fL 9.0 - 12.7 fL [facility] Platelets (Bld) [#/Vol] 230 10*3/uL 140 - 440 10*3/uL [facility] RBC (Bld) [#/Vol] 2.66 10*6/uL Low 3.80 - 5.2 0 10*6/uL [facility] WBC (Bld) [#/Vol] 6.7 10*3/uL 3.6 - 10.7 10*3/uL [facility] COMPREHENSIVE METABOLIC PANE Florentin 06-09-2025 Albumin [Mass/Vol] 2.4 g/dL Low 3.4-4.8 [facility] Comment on above: Performed By: #### L [id number] ####Veneer Stock Layer: NATALIE GARCIA ([id number])[facility] [place] (SBHLAB)[address] ALP [Catalytic activity/Vol] 117 U/L Normal 40-150 [facility] Comment on above: Performed By: #### L [id number] ####Veneer Stock Layer: NATALIE DENISETRICIA ([id number])[facility] [place] (SBHLAB)[address] [place] [address] [place] ALT [Catalytic activity/Vol] 9 U/L Normal <30 [facility] Comment on above: Performed By: #### L AB17 ####Veneer Stock Layer: NATALIE SIMONDANIEL ([id number])[facility] [place] (SBHLAB)[address] Anion gap [Moles/Vol] 11 mmol/L Normal 3-13 [facility] Comment on above: Performed By: #### L AB17 ####Veneer Stock Layer: NATALIE DENISETRICIA ([id number])[facility] [place] (SBHLAB)[address] AST [Catalytic activity/Vol] 18 U/L Normal <34 [facility] Comment on above: Performed By: #### L AB17 ####Veneer Stock Layer: NATALIE GARCIA ([id number])[facility] [place] (SBHLAB)[address] Bilirubin [Mass/Vol] 0.5 mg/dL Normal <1.2 [facility] Comment on above: Performed By: #### L AB17 ####Veneer Stock Layer: NATALIE GARCIA ([id number])[facility] [place] (SBHLAB)[address] [place] [address] [place] Calcium [Mass/Vol] 9.1 mg/dL Normal 8.8-10.0 [facility] Comment on above: Performed By: #### L AB17 ####Veneer Stock Layer: NATALIE GARCIA ([id number])[facility] [place] (SBHLAB)[address] [place] [address] [place] Chloride [Moles/Vol] 99 mmol/L Normal 98-107 [facility] Comment on above: Performed By: #### L AB17 ####Veneer Stock Layer: NATALIE GARCIA ([id number])[facility]ARCHAND[facility] (SBHLAB)[address] CO2 [Moles/Vol] 26 mmol/L Normal 23-[address] [facility] Comment on above: Performed By: #### L AB17 ####Veneer Stock Layer: NATALIE GARCIA ([id number])[facility] (SBHLAB)[address] Creatinine [Mass/Vol] 2.37 mg/dL High 0.57-1.11 [facility] Comment on above: Performed By: #### L AB17 ####Veneer Stock Layer: NATALIE GARCIA ([id number])[facility] (SBHLAB)[address] GLOMERULAR FILTRATION RATE ML/MIN/1.73 SQ M.PREDICTED 20.6 mL/min/1.73m*2 Low >60.0 [facility] Comment on above: Result Comment: Calc ulation based on the Chronic Kidney Disease Epidemiology Collaboration (CKD-EPI) equation refit without adjustment for race Performed By: #### L AB17 ####Veneer Stock Layer: NATALIE GARCIA ([id number])[facility] (SBHLAB)[address] Glucose [Mass/Vol] 101 mg/dL Normal 82-115 [facility] Comment on above: Performed By: #### L AB17 ####Veneer Stock Layer: NATALIE GARCIA ([id number])[facility] (HLAB)[address] [place] [address] [place] Potassium [Moles/Vol] 3.8 mmol/L Normal 3.5-5.1 [facility] Comment on above: Result Comment: [facility] potassium values may be up to 0.5 mmol/L lower than serum values. Performed By: #### L AB17 ####Veneer Stock Layer: NATALIE GARCIA ([id number])[facility]ENTERJosé Miguel [place] (SBHLAB)[address] Protein [Mass/Vol] 6.6 g/dL Normal 6.4-8.3 [facility] Comment on above: Performed By: #### L AB17 ####Veneer Stock Layer: NATALIE GARCIA ([id number])[facility]ENTERJos[facility] Miguel [place] (SBHLAB)[address] Sodium [Moles/Vol] 136 mmol/L Normal 136-145 [facility] Comment on above: Performed By: #### L AB17 ####Veneer Stock Layer: NATALIE GARCIA ([id number])[facility]ENTERJos[facility] Miguel [place] (SBHLAB)[address] Urea nitrogen [Mass/Vol] 26 mg/dL High 9-23 [facility] Comment on above: Performed By: #### L AB17 ####Veneer Stock Layer: NATALIE GARCIA ([id number])[facility]ENTERJosé Miguel [place] (SBHLAB)[address] CULTURE ANAEROBICon 06-09-20 25 CULTURE ANAEROBIC Normal [facility] Comment on above: Performed By: #### L [id number] ####Veneer Stock Layer: VASHTI BAILEY ([id number])[facility] (SACLAB)[address] [place] [address] CULTURE, AEROBIC BACTERIA WI TH GRAM STAINon 06-09-2025 CULTURE, AEROBIC BACTERIA WITH GRAM STAIN Normal [facility] Comment on above: Performed By: #### L [id number] ####Veneer Stock Layer: VASHTI BAILEY ([id number])[facility] ([facility])[address] [place] [address] Comprehensive metabolic 1998 panelon 06-09-2025 Albumin [Mass/Vol] 2.4 g/dL Low 3.4 - 4.8 g/dL [facility] ALP [Catalytic activity/Vol] 117 U/L 40 - 150 U/L [facility] ALT [Catalytic activity/Vol] 9 U/L NINF - 30 U/L [facility] Anion gap [Moles/Vol] 11 mmol/L 3 - 13 mmol/L [facility] AST [Catalytic activity/Vol] 18 U/L NINF - 34 U/L [facility] Bilirubin [Mass/Vol] 0.5 mg/dL NINF - 1.2 mg/dL [facility] Calcium [Mass/Vol] 9.1 mg/dL 8.8 - 10. 0 mg/dL [facility] Chloride [Moles/Vol] 99 mmol/L 98 - 10 7 mmol/L [facility] CO2 [Moles/Vol] 26 mmol/L 23 - 31 mmol/L [facility] Creatinine [Mass/Vol] 2.37 mg/dL High 0.57 - 1.11 mg/dL [facility] GFR/1.73 sq M.predicted (S/P/Bld) [Vol rate/Area] 20.6 mL/min Low - PINF [facility] Glucose [Mass/Vol] 101 mg/dL 82 - 115 mg/dL [facility] Interpretation and review of laboratory results Abnormal [facility] Potassium [Moles/Vol] 3.8 mmol/L 3.5 - 5.1 mmol/L [facility] Protein [Mass/Vol] 6.6 g/dL 6.4 - 8.3 g/dL [facility] Sodium [Moles/Vol] 136 mmol/L 136 - 145 mmol/L [facility] Urea nitrogen [Mass/Vol] 26 mg/dL High 9 - 23 mg/dL [facility] HEMOGLOBIN AND HEMATOCRIT, B LOODon 06-09-2025 Hematocrit (Bld) [Volume fraction] 22.8 % Low 35.0-47.0 [facility] Comment on above: Performed By: #### L [id number] ####Veneer Stock Layer: NATALIE GARCIA ([id number])[facility] (SBHLAB)[address] Hemoglobin (Bld) [Mass/Vol] 7.3 g/dL Low 11.7-16.0 [facility] Comment on above: Performed By: #### L [id number] ####Veneer Stock Layer: NATALIE GARCIA ([id number])[facility] (SBHLAB)[address] Hemoglobin (Bld) [Mass/Vol]o n 06-09-2025 Hematocrit (Bld) [Volume fraction] 22.8 % Low 35.0 - 47.0 % [facility] Interpretation and review of laboratory results Abnormal [facility] Laboratory - Chemistry and C hemistry - challengeon 06-09-2025 Glucose [Mass/Vol] 97 mg/dL 70 - 100 mg/dL [facility] Glucose [Mass/Vol] 94 mg/dL 70 - 100 mg/dL [facility] Glucose [Mass/Vol] 116 mg/dL High 70 - 100 mg/dL [facility] Glucose [Mass/Vol] 111 mg/dL High 70 - 100 mg/dL [facility] Laboratory - Hematology and Cell countson 06-09-2025 Hemoglobin (Bld) [Mass/Vol] 7.3 g/dL Low 11.7 - 16.0 g/dL [facility] Laboratory - Microbiology an d Antimicrobial susceptibilityOrdered By: Alcides Sims on 06-09-2025 Bacteria identified Cx Nom (Catheter tip) >15 CFU Serratia marcescens Abnormal [facility] No Panel Informationon 06-09 Interpretation and review of laboratory results Normal [facility] Interpretation and review of laboratory results Normal [facility] Interpretation and review of laboratory results Abnormal [facility] Interpretation and review of laboratory results Abnormal [facility] Progress Noteon 06-09-2025 Progress Note Normal [facility] Progress Note Normal [facility] Progress Note [facility] Progress Note Normal [facility] [id number] 06-08-2025 [id number] Normal [facility] CBC (HEMOGRAM)on 06-08-2025 Erythrocyte distribution width (RBC) [Ratio] 19.2 % High 11.5-15.0 [facility] Comment on above: Performed By: #### L [id number] ####Veneer Stock Layer: NATALIE GARCIA ([id number])[facility] ([facility])[address] [place] [address] Hematocrit (Bld) [Volume fraction] 24.6 % Low 35.0-47.0 [facility] Comment on above: Performed By: #### L [id number] ####Veneer Stock Layer: NATALIE GARCIA ([id number])[facility]ENTERJos[facility] REHMANELIAS (SBHLAB)[address] Hemoglobin (Bld) [Mass/Vol] 7.7 g/dL Low 11.7-16.0 [facility] Comment on above: Performed By: #### L [id number] ####Veneer Stock Layer: NATALIE GARCIA ([id number])[facility]ENTERJosé Miguel REHMANNEW MEXICO BEHAVIORAL HEALTH INSTITUTE AT LAS VEGASLaurel (SBHLAB)[address] MCH (RBC) [Entitic mass] 26.0 pg Normal 26.0-34.0 [facility] Comment on above: Performed By: #### L [id number] ####Veneer Stock Layer: NATALIE GARCIA ([id number])[facility] CENTERJosé Miguel REHMANNEW MEXICO BEHAVIORAL HEALTH INSTITUTE AT LAS VEGASLaurel (SBHLAB)[address] MCHC 31.3 % Normal 30.5-36.0 [facility] Comment on above: Performed By: #### L [id number] ####Veneer Stock Layer: NATALIE GARCIA ([id number])[facility] CENTERJosé Miguel [place] (SBHLAB)[address] MCV (RBC) [Entitic vol] 83.1 fL Normal 77.0-99.0 S [facility] Comment on above: Performed By: #### L [id number] ####Veneer Stock Layer: NATALIE GARCIA ([id number])[facility] (SBHLAB)[address] Platelet mean volume (Bld) [Entitic vol] 9.9 fL Normal 9.0-12.7 [facility] Comment on above: Performed By: #### L [id number] ####Veneer Stock Layer: NATALIE GARCIA ([id number])[facility] (SBHLAB)[address] Platelets (Bld) [#/Vol] 236 10*3/uL Normal 140-440 [facility] Comment on above: Performed By: #### L [id number] ####Veneer Stock Layer: NATALIE GARCIA ([id number])[facility] CENTERJosé Miguel REHMANNEW MEXICO BEHAVIORAL HEALTH INSTITUTE AT LAS VEGASLaurel (SBHLAB)[address] [place] [address] RBC (Bld) [#/Vol] 2.96 10*6/uL Low 3.80-5.20 [facility] Comment on above: Performed By: #### L [id number] ####Veneer Stock Layer: NATALIE GARCIA ([id number])[facility] (SBHLAB)[address] [place] [address] WBC (Bld) [#/Vol] 6.5 10*3/uL Normal 3.6-10.7 [facility] Comment on above: Performed By: #### L [id number] ####Veneer Stock Layer: NATALIE GARCIA ([id number])[facility] (SBHLAB)[address] [place] [address] CBC panel Auto (Bld)on 06-08 Erythrocyte distribution width (RBC) [Ratio] 19.2 % High 11.5 - 15.0 % [facility] Hematocrit (Bld) [Volume fraction] 24.6 % Low 35.0 - 47.0 % [facility] Hemoglobin (Bld) [Mass/Vol] 7.7 g/dL Low 11.7 - 16.0 g/dL [facility] Interpretation and review of laboratory results Abnormal [facility] MCH (RBC) [Entitic mass] 26 pg 26.0 - 34.0 pg [facility] MCHC (RBC) [Mass/Vol] 31.3 % 30.5 - 36.0 % [facility] MCV (RBC) [Entitic vol] 83.1 fL 77.0 - 99.0 fL [facility] SCVNGR Platelet mean volume (Bld) [Entitic vol] 9.9 fL 9.0 - 12.7 fL [facility] SCVNGR Platelets (Bld) [#/Vol] 236 10*3/uL 140 - 440 10*3/uL [facility] RBC (Bld) [#/Vol] 2.96 10*6/uL Low 3.80 - 5.2 0 10*6/uL [facility] WBC (Bld) [#/Vol] 6.5 10*3/uL 3.6 - 10.7 10*3/uL [facility] COMPREHENSIVE METABOLIC PANE Florentin 06-08-2025 Albumin [Mass/Vol] 2.5 g/dL Low 3.4-4.8 [facility] Comment on above: Performed By: #### L AB96, [id number] ####Veneer Stock Layer: NATALIE GARCIA ([id number])[facility] CENTERA [place] (SBHLAB)[address] ALP [Catalytic activity/Vol] 118 U/L Normal 40-150 [facility] Comment on above: Performed By: #### L AB96, LAB17 ####Veneer Stock Layer: NATALIE GARCIA ([id number])[facility] CENTERA [place] (SBHLAB)[address] ALT [Catalytic activity/Vol] 9 U/L Normal <30 [facility] Comment on above: Performed By: #### L AB96, LAB17 ####Veneer Stock Layer: NATALIE GARCIA ([id number])[facility] CENTERA [place] (SBHLAB)[address] Anion gap [Moles/Vol] 10 mmol/L Normal 3-13 [facility] Comment on above: Performed By: #### L AB96, LAB17 ####Veneer Stock Layer: NATALIE GARCIA ([id number])[facility] CENTERA [place] (SBHLAB)[address] AST [Catalytic activity/Vol] 16 U/L Normal <34 [facility] Comment on above: Performed By: #### L AB96, LAB17 ####Veneer Stock Layer: NATALIE GARCIA ([id number])[facility] CENTERA [place] (SBHLAB)[address] Bilirubin [Mass/Vol] 0.5 mg/dL Normal <1.2 [facility] Comment on above: Performed By: #### L AB96, LAB17 ####Veneer Stock Layer: NATALIE GARCIA ([id number])[facility] CENTERA [place] (SBHLAB)[address] Calcium [Mass/Vol] 9.1 mg/dL Normal 8.8-10.0 [facility] Comment on above: Performed By: #### L AB96, LAB17 ####Veneer Stock Layer: NATALIE GARCIA ([id number])[facility] CENTERJosé Miguel TORRES (SBHLAB)[address] [place] [address] [place] Chloride [Moles/Vol] 95 mmol/L Low 98-107 [facility] Comment on above: Performed By: #### L AB96, LAB17 ####Veneer Stock Layer: NATALIE GARCIA ([id number])[facility] (SBHLAB)[address] CO2 [Moles/Vol] 24 mmol/L Normal 23-[address] [facility] Comment on above: Performed By: #### L AB96, LAB17 ####Veneer Stock Layer: NATALIE GARCIA ([id number])[facility] (SBHLAB)[address] Creatinine [Mass/Vol] 4.25 mg/dL High 0.57-1.11 [facility] Comment on above: Performed By: #### L AB96, LAB17 ####Veneer Stock Layer: NATALIE GARCIA ([id number])[facility] (SBHLAB)[address] [place] [address] [place] GLOMERULAR FILTRATION RATE ML/MIN/1.73 SQ M.PREDICTED 10.2 mL/min/1.73m*2 Low >60.0 [facility] Comment on above: Result Comment: Calc ulation based on the Chronic Kidney Disease Epidemiology Collaboration (CKD-EPI) equation refit without adjustment for race Performed By: #### L AB96, LAB17 ####Veneer Stock Layer: NATALIE GARCIA ([id number])[facility] (SBHLAB)[address] [place] [address] [place] Glucose [Mass/Vol] 150 mg/dL High 82-115 [facility] Comment on above: Performed By: #### L AB96, LAB17 ####Veneer Stock Layer: NATALIE GARCIA ([id number])[facility] (SBHLAB)[address] Potassium [Moles/Vol] 3.8 mmol/L Normal 3.5-5.1 [facility] Comment on above: Result Comment: [facility] potassium values may be up to 0.5 mmol/L lower than serum values. Performed By: #### L AB96, LAB17 ####Veneer Stock Layer: NATALIE GARCIA ([id number])[facility] (SBHLAB)[address] Protein [Mass/Vol] 6.5 g/dL Normal 6.4-8.3 [facility] Comment on above: Performed By: #### L AB96, LAB17 ####Veneer Stock Layer: NATALIE GARCIA ([id number])[facility] (SBHLAB)[address] Sodium [Moles/Vol] 129 mmol/L Low 136-145 [facility] Comment on above: Performed By: #### L AB96, LAB17 ####Veneer Stock Layer: NATALIE GARCIA ([id number])[facility] (SBHLAB)[address] Urea nitrogen [Mass/Vol] 51 mg/dL High 9-23 [facility] Comment on above: Performed By: #### L AB96, LAB17 ####Veneer Stock Layer: NATALIE GARCIA ([id number])[facility] (SBHLAB)[address] Comprehensive metabolic 1998 panelon 06-08-2025 Albumin [Mass/Vol] 2.5 g/dL Low 3.4 - 4.8 g/dL [facility] ALP [Catalytic activity/Vol] 118 U/L 40 - 150 U/L [facility] ALT [Catalytic activity/Vol] 9 U/L NINF - 30 U/L [facility] Anion gap [Moles/Vol] 10 mmol/L 3 - 13 mmol/L [facility] AST [Catalytic activity/Vol] 16 U/L NINF - 34 U/L [facility] Bilirubin [Mass/Vol] 0.5 mg/dL NINF - 1.2 mg/dL [facility] Calcium [Mass/Vol] 9.1 mg/dL 8.8 - 10. 0 mg/dL [facility] Chloride [Moles/Vol] 95 mmol/L Low 98 - 10 7 mmol/L [facility] CO2 [Moles/Vol] 24 mmol/L 23 - 31 mmol/L [facility] Creatinine [Mass/Vol] 4.25 mg/dL High 0.57 - 1.11 mg/dL [facility] GFR/1.73 sq M.predicted (S/P/Bld) [Vol rate/Area] 10.2 mL/min Low - PINF [facility] Glucose [Mass/Vol] 150 mg/dL High 82 - 115 mg/dL [facility] Interpretation and review of laboratory results Abnormal [facility] Potassium [Moles/Vol] 3.8 mmol/L 3.5 - 5.1 mmol/L [facility] Protein [Mass/Vol] 6.5 g/dL 6.4 - 8.3 g/dL [facility] Sodium [Moles/Vol] 129 mmol/L Low 136 - 145 mmol/L [facility] Urea nitrogen [Mass/Vol] 51 mg/dL High 9 - 23 mg/dL [facility] LACTATE DEHYDROGENASEon 05-28 LDH [Catalytic activity/Vol] 213 U/L Normal 125-220 [facility] Comment on above: Performed By: #### L AB96, LAB17 ####Veneer Stock Layer: NATALIE GARCIA ([id number])[facility] ([facility])[address] [place] [address] LDH Lactate to pyruvate reac tion [Catalytic activity/Vol]on 06-08-2025 Interpretation and review of laboratory results Normal [facility] Laboratory - Chemistry and C hemistry - challengeon 06-08-2025 Glucose [Mass/Vol] 98 mg/dL 70 - 100 mg/dL [facility] Glucose [Mass/Vol] 131 mg/dL High 70 - 100 mg/dL [facility] Glucose [Mass/Vol] 161 mg/dL High 70 - 100 mg/dL [facility] Glucose [Mass/Vol] 166 mg/dL High 70 - 100 mg/dL [facility] LDH Lactate to pyruvate reaction [Catalytic activity/Vol] 213 U/L 125 - 220 U/L [facility] Glucose [Mass/Vol] 156 mg/dL High 70 - 100 mg/dL [facility] No Panel Informationon 06-08 Interpretation and review of laboratory results Normal [facility] Interpretation and review of laboratory results Abnormal [facility] Interpretation and review of laboratory results Abnormal [facility] Interpretation and review of laboratory results Abnormal [facility] Interpretation and review of laboratory results Abnormal [facility] Progress Noteon 06-08-2025 Progress [facility] XR CHEST 1 VIEWon 06-08-2025 XR CHEST 1 VIEW Normal [facility] XR Chest Single viewon 06-08 [facility] Radiology Study observation (narrative) [facility] XR Chest Single viewOrdered By: Timbo Mojica on 06-08-2025 [facility] Work Phone: [phone] 06-07-2025 [id number] Normal [facility] BLOOD CULTUREon 06-07-2025 Bacteria identified Cx Nom (Bld) Normal [facility] Comment on above: Performed By: #### L [id number] ####Veneer Stock Layer: VASHTI BAILEY ([id number])[address] Bacteria identified Cx Nom (Bld) Normal [facility] Comment on above: Performed By: #### L [id number] ####Veneer Stock Layer: VASHTI BAILEY ([id number])[address] CBC (HEMOGRAM)on 06-07-2025 Erythrocyte distribution width (RBC) [Ratio] 19.2 % High 11.5-15.0 [facility] Comment on above: Performed By: #### L [id number] ####Veneer Stock Layer: NATALIE GARCIA ([id number])ELOINA REHMANELIAS (SBHLAB)[address] Hematocrit (Bld) [Volume fraction] 24.4 % Low 35.0-47.0 [facility] Comment on above: Performed By: #### L [id number] ####Veneer Stock Layer: NATALIE GARCIA ([id number])[facility] CENTERJosé Miguel REHMANNEW MEXICO BEHAVIORAL HEALTH INSTITUTE AT LAS VEGASLaurel (SBHLAB)[address] Hemoglobin (Bld) [Mass/Vol] 7.5 g/dL Low 11.7-16.0 [facility] Comment on above: Performed By: #### L [id number] ####Veneer Stock Layer: NATALIE GARCIA ([id number])[facility] CENTERJosé Miguel REHMANNEW MEXICO BE[facility] INSTITUTE AT L[facility] VEGASLaurel (SBHLAB)[address] MCH (RBC) [Entitic mass] 26.0 pg Normal 26.0-34.0 [facility] Comment on above: Performed By: #### L [id number] ####Veneer Stock Layer: NATALIE GARCIA ([id number])[facility] CENTERJosé Miguel REHMANNEW MEXICO BE[facility] HEALTH INSTITUTE AT L[facility] VEGASLaurel (SBHLAB)[address] MCHC 30.7 % Normal 30.5-36.0 [facility] Comment on above: Performed By: #### L [id number] ####Veneer Stock Layer: NATALIE GARCIA ([id number])[facility] CENTERJosé Miguel REHMANELIAS (SBHLAB)[address] MCV (RBC) [Entitic vol] 84.4 fL Normal 77.0-99.0 [facility] Comment on above: Performed By: #### L [id number] ####Veneer Stock Layer: NATALIE GARCIA ([id number])[facility] CENTERJosé Miguel REHMANELIAS (SBHLAB)[address] Platelet mean volume (Bld) [Entitic vol] 9.5 fL Normal 9.0-12.7 [facility] Comment on above: Performed By: #### L [id number] ####Veneer Stock Layer: NATALIE [id number])[facility] CENTERJosé Miguel TORRES (SBHLAB)[address] Platelets (Bld) [#/Vol] 234 10*3/uL Normal 140-440 [facility] Comment on above: Performed By: #### L [id number] ####Veneer Stock Layer: NATALIE GARCIA ([id number])[facility] CENTERJosé Miguel [facility]MANCH[facility] (SBHLAB)[address] RBC (Bld) [#/Vol] 2.89 10*6/uL Low 3.80-5.20 [facility] Comment on above: Performed By: #### L [id number] ####Veneer Stock Layer: NATALIE GARCIA ([id number])[facility] CENTERJosé Miguel [facility]MANCHANDLER [facility] ([facility])[address] [place] [address] WBC (Bld) [#/Vol] 7.4 10*3/uL Normal 3.6-10.7 [facility] Comment on above: Performed By: #### L [id number] ####Veneer Stock Layer: NATALIE GARCIA ([id number])[facility] CENTERJosé Miguel RE[facility]MANCHANDLER [facility] ([facility])[address] [place] [address] CBC panel Auto (Bld)on 06-07 Erythrocyte distribution width (RBC) [Ratio] 19.2 % High 11.5 - 15.0 % [facility] Hematocrit (Bld) [Volume fraction] 24.4 % Low 35.0 - 47.0 % [facility] Hemoglobin (Bld) [Mass/Vol] 7.5 g/dL Low 11.7 - 16.0 g/dL [facility] Interpretation and review of laboratory results Abnormal [facility] MCH (RBC) [Entitic mass] 26 pg 26.0 - 34.0 pg [facility] MCHC (RBC) [Mass/Vol] 30.7 % 30.5 - 36.0 % [facility] MCV (RBC) [Entitic vol] 84.4 fL 77.0 - 99.0 fL [facility] Platelet mean volume (Bld) [Entitic vol] 9.5 fL 9.0 - 12.7 fL [facility] Platelets (Bld) [#/Vol] 234 10*3/uL 140 - 440 10*3/uL [facility] RBC (Bld) [#/Vol] 2.89 10*6/uL Low 3.80 - 5.2 0 10*6/uL [facility] WBC (Bld) [#/Vol] 7.4 10*3/uL 3.6 - 10.7 10*3/uL [facility] COMPREHENSIVE METABOLIC PANE Florentin 06-07-2025 Albumin [Mass/Vol] 2.7 g/dL Low 3.4-4.8 [facility] Comment on above: Performed By: #### L [id number] ####Veneer Stock Layer: NATALIE GARCIA ([id number])[facility] CENTERA [facility] (SBHLAB)[address] ALP [Catalytic activity/Vol] 123 U/L Normal 40-150 [facility] Comment on above: Performed By: #### L AB17 ####Veneer Stock Layer: NATALIE GARCIA ([id number])[facility]ENTERA [facility] (SBHLAB)[address] ALT [Catalytic activity/Vol] 9 U/L Normal <30 [facility] Comment on above: Performed By: #### L AB17 ####Veneer Stock Layer: NATALIE GARCIA ([id number])[facility]ENTERA [facility] (SBHLAB)[address] Anion gap [Moles/Vol] 11 mmol/L Normal 3-13 [facility] Comment on above: Performed By: #### L AB17 ####Veneer Stock Layer: NATALIE GARCIA ([id number])[facility] CENTERA BARBNEW MEXICO BEH[facility]IOR[facility] HE[facility] INSTITUTE AT L[facility] VEGASN (SBHLAB)[address] AST [Catalytic activity/Vol] 19 U/L Normal <34 [facility] Comment on above: Performed By: #### L AB17 ####Veneer Stock Layer: NATALIE GARCIA ([id number])[facility]ITAL[facility] (SBHLAB)[address] Bilirubin [Mass/Vol] 0.6 mg/dL Normal <1.2 [facility] Comment on above: Performed By: #### L AB17 ####Veneer Stock Layer: NATALIE GARCIA ([id number])[facility] CENTERA [place]ELI[place] (SBHLAB)[address] Calcium [Mass/Vol] 9.4 mg/dL Normal 8.8-10.0 [facility] Comment on above: Performed By: #### L AB17 ####Veneer Stock Layer: NATALIE GARCIA ([id number])[facility]ENTERA [place] (SBHLAB)[address] Chloride [Moles/Vol] 96 mmol/L Low 98-107 [facility] Comment on above: Performed By: #### L AB17 ####Veneer Stock Layer: NATALIE GARCIA ([id number])[facility]ENTERA [place] (SBHLAB)[address] CO2 [Moles/Vol] 26 mmol/L Normal 23-[address] [facility] Comment on above: Performed By: #### L AB17 ####Veneer Stock Layer: NATALIE GARCIA ([id number])[facility]ENTERA [place] (SBHLAB)[address] Creatinine [Mass/Vol] 3.68 mg/dL High 0.57-1.11 [facility] Comment on above: Performed By: #### L AB17 ####Veneer Stock Layer: NATALIE GARCIA ([id number])[facility] CENTERA [place] (SBHLAB)[address] GLOMERULAR FILTRATION RATE ML/MIN/1.73 SQ M.PREDICTED 12.2 mL/min/1.73m*2 Low >60.0 [facility] Comment on above: Result Comment: Calc ulation based on the Chronic Kidney Disease Epidemiology Collaboration (CKD-EPI) equation refit without adjustment for race Performed By: #### L AB17 ####Veneer Stock Layer: NATALIE GARCIA ([id number])[facility] CENTERA BARBMAGNUSN (SBHLAB)[address] [place] [address] [place] Glucose [Mass/Vol] 119 mg/dL High 82-115 [facility] Comment on above: Performed By: #### L AB17 ####Veneer Stock Layer: NATALIE GARCIA ([id number])[facility] (SBHLAB)[address] Potassium [Moles/Vol] 3.7 mmol/L Normal 3.5-5.1 [facility] Comment on above: Result Comment: [facility] potassium values may be up to 0.5 mmol/L lower than serum values. Performed By: #### L AB17 ####Veneer Stock Layer: NATALIE GARCIA ([id number])[facility] (SBHLAB)[address] Protein [Mass/Vol] 6.8 g/dL Normal 6.4-8.3 [facility] Comment on above: Performed By: #### L AB17 ####Veneer Stock Layer: NATALIE GARCIA ([id number])[facility] (SBHLAB)[address] [place] [address] [place] Sodium [Moles/Vol] 133 mmol/L Low 136-145 [facility] Comment on above: Performed By: #### L AB17 ####Veneer Stock Layer: NATALIE GARCIA ([id number])[facility] (SBHLAB)[address] Urea nitrogen [Mass/Vol] 40 mg/dL High 9-23 [facility] Comment on above: Performed By: #### L AB17 ####Veneer Stock Layer: NATALIE GARCIA ([id number])[facility] (SBHLAB)[address] [place] [address] [place] CULTURE ANAEROBICon 06-07-20 CULTURE ANAEROBIC Normal [facility] Comment on above: Performed By: #### L [id number] ####Veneer Stock Layer: VASHTI BAILEY ([id number])[facility] (SACLAB)[address] [place] [address] [place] CULTURE, AEROBIC BACTERIA WI TH GRAM STAINon 06-07-2025 CULTURE, AEROBIC BACTERIA WITH GRAM STAIN Normal [facility] Comment on above: Performed By: #### L [id number] ####Veneer Stock Layer: VASHTI BAILEY ([id number])[facility] ([address] Comprehensive metabolic 1998 panelon 06-07-2025 Albumin [Mass/Vol] 2.7 g/dL Low 3.4 - 4.8 g/dL [facility] ALP [Catalytic activity/Vol] 123 U/L 40 - 150 U/L [facility] ALT [Catalytic activity/Vol] 9 U/L NINF - 30 U/L [facility] Anion gap [Moles/Vol] 11 mmol/L 3 - 13 mmol/L [facility] AST [Catalytic activity/Vol] 19 U/L NINF - 34 U/L [facility] Bilirubin [Mass/Vol] 0.6 mg/dL NINF - 1.2 mg/dL [facility] Calcium [Mass/Vol] 9.4 mg/dL 8.8 - 10. 0 mg/dL [facility] Chloride [Moles/Vol] 96 mmol/L Low 98 - 10 7 mmol/L [facility] CO2 [Moles/Vol] 26 mmol/L 23 - 31 mmol/L [facility] Creatinine [Mass/Vol] 3.68 mg/dL High 0.57 - 1.11 mg/dL [facility] GFR/1.73 sq M.predicted (S/P/Bld) [Vol rate/Area] 12.2 mL/min Low - PINF [facility] Glucose [Mass/Vol] 119 mg/dL High 82 - 115 mg/dL [facility] Interpretation and review of laboratory results Abnormal [facility] Potassium [Moles/Vol] 3.7 mmol/L 3.5 - 5.1 mmol/L [facility] Protein [Mass/Vol] 6.8 g/dL 6.4 - 8.3 g/dL [facility] Sodium [Moles/Vol] 133 mmol/L Low 136 - 145 mmol/L [facility] Urea nitrogen [Mass/Vol] 40 mg/dL High 9 - 23 mg/dL [facility] Health Consulton 06-07-2025 Consult Normal [facility] LACTATE DEHYDROGENASE, BODY FLUIDon 06-07-2025 LACTATE DEHYDROGENASE, BODY FLUID BY LAC->PYR 91 U/L Normal [facility] Comment on above: Performed By: #### L [id number], [id number] ####Veneer Stock Layer: VASHTI BAILEY ([id number])[facility] (SAC[facility])[address] [place] [address] LaboratoryOrdered By: Benigno Christian on 06-07-2025 Fluid Nom (Body fld) Pleural Fluid S [facility] Laboratoryon 06-07-2025 Fluid Nom (Body fld) Pleural Fluid S [facility] Laboratory - Chemistry and C hemistry - challengeon 06-07-2025 Glucose [Mass/Vol] 140 mg/dL High 70 - 100 mg/dL [facility] Protein (Body fld) [Mass/Vol] 3.9 g/dL [facility] Glucose [Mass/Vol] 134 mg/dL High 70 - 100 mg/dL [facility] Glucose [Mass/Vol] 137 mg/dL High 70 - 100 mg/dL [facility] Laboratory - Chemistry and C hemistry - challengeOrdered By: Benigno Christian on 06-07-2025 LDH (Body fld) [Catalytic activity/Vol] 91 U/L [facility] No Panel Informationon 06-07 Interpretation and review of laboratory results Abnormal [facility] Interpretation and review of laboratory results Abnormal [facility] Radiology Study observation (narrative) [facility] Interpretation and review of laboratory results Abnormal [facility] No Panel InformationOrdered By: Benigno Christian on 06-07-2025 [facility] No Panel InformationOrdered By: Yoana Hayes on 06-07-2025 [facility] Work Phone: Nursing Noteon 06-07-2025 Nursing Note Normal [facility] Nursing Note Normal [facility] PROTEIN BODY FLUIDon 025 PROTEIN, BODY FLUID 3.9 g/dL Normal [facility] Comment on above: Performed By: #### L [id number], [id number] ####Veneer Stock Layer: VASHTI BAILEY ([id number])[facility] ([facility])[address] [place] [address] TYPE OF BODY FLUID Pleural Fluid Normal [facility] Comment on above: Result Comment: DORIAN Knight COMMENTS:This test was developed and its performance characteristics determined by [facility]. It has not been cleared or approved by the US Food and Drug Administration. This test was performed in a CLIA certified laboratory and is intended for clinical purposes.Pleural ijsnf-tu-lyezg protein ratio of >0.5 is one of Light???s criteria for an exudate. Heart failure associated misclassifications (by Light???s criteria) may be differentiated as transudative effusions by subsequently evaluating a geqtz-zy-wkltzev albumin gradient (>1.2 g/dL) and/or a igktl-kp-xvrvp protein gradient (>3.1 g/dL). Performed By: #### L [id number], [id number] ####Veneer Stock Layer: VASHTI BAILEY ([id number])[facility] ([facility])[address] [place] [address] Result Comment: DORIAN Knight COMMENTS:This test was developed and its performance characteristics determined by [facility]. It has not been cleared or approved by the [place] Food and Drug Administration. This test was performed in a CLIA certified laboratory and is intended for clinical purposes.Exudates are defined as meeting one of the following criteria: (a) Pleural nbyhe-ba-sanfv protein ratio of >0.5, (b) pleural ycetz-nw-ypgha LDH ratio of >0.6, or (c)a pleural fluid LDH activity that is >2/3 the upper limit of a normal serum LDH activity (Light???s criteria). Progress Noteon 06-07-2025 Progress Note [facility] Progress [facility] Normal [facility] Progress [facility] Normal [facility] Progress Note Normal [facility] Progress [facility] Normal [facility] Progress [facility] Normal [facility] Respiratory pathogens DNA an d RNA panel PATEL+non-probe (Lower resp)Ordered By: Nithya Carrasquillo on 06-07-2025 Acinetobacter baumannii complex Not detected Not Detected [facility] Adenovirus Not detected Not Detected [facility] th C. pneumoniae DNA PATEL+non-probe Ql (Lower resp) Not detected Not Detected [facility] Enterobacter cloacae complex Not detected Not Detected [facility] Escherichia coli Not detected Not Detected [facility] FLUAV RNA PATEL+non-probe Ql (Lower resp) Not detected Not Detected [facility] FLUBV RNA PATEL+non-probe Ql (Lower resp) Not detected Not Detected [facility] Haemophilus influenzae Not detected Not Detecte d [facility] Human Metapneumovirus Not detected Not Detected [facility] Human Rhinovirus/Enterovirus Not detected Not [facility]ed [facility] Interpretation and review of laboratory results Abnormal [facility] Klebsiella (Enterobacter) aerogenes Not detected Not Detected [facility] Klebsiella oxytoca Not detected Not Detected [facility] Klebsiella pneumoniae Not detected Not Detected [facility] L. pneumophila DNA PATEL+non-probe Ql (Lower resp) Not detected Not Detected [facility] Moraxella catarrhalis Not detected Not Detected [facility] Mycoplasma pneumoniae Not detected Not Detected [facility] Parainfluenza virus Not detected Not Detected [facility] Proteus spp Detected Abnormal Not Detected [facility] Pseudomonas aeruginosa Detected Abnormal Not Detected [facility] RSV RNA PATEL+probe Ql (Resp) Not detected Not Detected [facility] S. agalactiae DNA PATEL+non-probe Ql (Sput) Not detected Not Detected [facility] alth SARS-CoV-2 (COVID-19) RNA PATEL+non-probe Ql (Nph) Not detected Not Detected [facility] Serratia marcescens Detected Abnormal Not Detected [facility] Staphylococcus aureus Not detected Not Detected [facility] Streptococcus pneumoniae Not detected Not Detected [facility] Streptococcus pyogenes Not detected Not Detecte d [facility] US GUIDED THORACENTESISon US GUIDED THORACENTESIS Normal S [facility] [id number] 06-06-2025 [id number] Normal [facility] BLOOD TYPE AND SCREEN GELon 06-06-2025 ABO GROUPING A Normal [facility] Comment on above: Performed By: #### L [id number] ####Veneer Stock Layer: NATALIE GARCIA ([id number])[facility] BLOOD B[facility] ([facility])[address] RH TYPE IN BLOOD Positive Normal [facility] Comment on above: Performed By: #### L [id number] ####Veneer Stock Layer: NATALIE GARCIA ([id number])[facility] BLOOD BANK (SB)[address] [place] [address] CBC (HEMOGRAM)on 06-06-2025 Erythrocyte distribution width (RBC) [Ratio] 19.4 % High 11.5-15.0 [facility] Comment on above: Performed By: #### L [id number] ####Veneer Stock Layer: NATALIE GARCIA ([id number])[facility] ([facility] [place] [address] Hematocrit (Bld) [Volume fraction] 24.5 % Low 35.0-47.0 [facility] Comment on above: Performed By: #### L [id number] ####Veneer Stock Layer: NATALIE GARCIA ([id number])[facility] ([facility])[address] [place] [address] Hemoglobin (Bld) [Mass/Vol] 7.2 g/dL Low 11.7-16.0 [facility] Comment on above: Performed By: #### L [id number] ####Veneer Stock Layer: NATALIE GARCIA ([id number])[facility] ([facility])[address] [place] [address] MCH (RBC) [Entitic mass] 25.4 pg Low 26.0-34.0 [facility] Comment on above: Performed By: #### L [id number] ####Veneer Stock Layer: NATALIE GARCIA ([id number])[facility] ([facility])[address] [place] [address] MCHC 29.4 % Low 30.5-36.0 [facility] Comment on above: Performed By: #### L [id number] ####Veneer Stock Layer: NATALIE GARCIA ([id number])[facility] ([facility])[address] [place] [address] MCV (RBC) [Entitic vol] 86.3 fL Normal 77.0-99.0 [facility] Comment on above: Performed By: #### L [id number] ####Veneer Stock Layer: NATALIE SIMONErlindaTRICIA ([id number])ELOINA MONTENEGROLaurel (SBHLAB)[address] Platelet mean volume (Bld) [Entitic vol] 10.1 fL Normal 9.0-12.7 [facility] Comment on above: Performed By: #### L [id number] ####Veneer Stock Layer: NATALIE JOSE ([id number])[facility] (SBHLAB)[address] Platelets (Bld) [#/Vol] 197 10*3/uL Normal 140-440 [facility] Comment on above: Performed By: #### L [id number] ####Veneer Stock Layer: NATALIE JOSE ([id number])[facility] [place] (SBHLAB)[address] RBC (Bld) [#/Vol] 2.84 10*6/uL Low 3.80-5.20 [facility] Comment on above: Performed By: #### L [id number] ####Veneer Stock Layer: NATALIE JOSE ([id number])[facility] [place] (SBHLAB)[address] WBC (Bld) [#/Vol] 5.9 10*3/uL Normal 3.6-10.7 [facility] Comment on above: Performed By: #### L [id number] ####Veneer Stock Layer: NATALIE DENISETRICIA ([id number])[facility] [place] (SBHLAB)[address] COMPREHENSIVE METABOLIC PANE Florentin 06-06-2025 Albumin [Mass/Vol] 2.6 g/dL Low 3.4-4.8 [facility] Comment on above: Performed By: #### L [id number] ####Veneer Stock Layer: NATALIE JOSE ([id number])[facility] [place] (SBHLAB)[address] ALP [Catalytic activity/Vol] 113 U/L Normal 40-150 [facility] Comment on above: Performed By: #### L AB17 ####Veneer Stock Layer: NATALIE DENISETRICIA ([id number])[facility] (SBHLAB)[address] ALT [Catalytic activity/Vol] 12 U/L Normal <30 [facility] Comment on above: Performed By: #### L AB17 ####Veneer Stock Layer: NATALIE DENISETRICIA ([id number])[facility] (SBHLAB)[address] Anion gap [Moles/Vol] 10 mmol/L Normal 3-13 [facility] Comment on above: Performed By: #### L AB17 ####Veneer Stock Layer: NATALIE DENISETRICIA ([id number])[facility] [place] (SBHLAB)[address] AST [Catalytic activity/Vol] 21 U/L Normal <34 [facility] Comment on above: Performed By: #### L AB17 ####Veneer Stock Layer: NATALIE DENISETRICIA ([id number])[facility] (SBHLAB)[address] Bilirubin [Mass/Vol] 0.5 mg/dL Normal <1.2 [facility] Comment on above: Performed By: #### L AB17 ####Veneer Stock Layer: NATALIE DENISETRICIA ([id number])[facility] (SBHLAB)[address] Calcium [Mass/Vol] 9.0 mg/dL Normal 8.8-10.0 [facility] Comment on above: Performed By: #### L AB17 ####Veneer Stock Layer: NATALIE DENISETRICIA ([id number])[facility] (SBHLAB)[address] [place] [address] [place] Chloride [Moles/Vol] 98 mmol/L Normal 98-107 [facility] Comment on above: Performed By: #### L AB17 ####Veneer Stock Layer: NATALIE GARCIA ([id number])[facility] (SBHLAB)[address] CO2 [Moles/Vol] 26 mmol/L Normal 23-[address] [facility] Comment on above: Performed By: #### L AB17 ####Veneer Stock Layer: NATALIE GARCIA ([id number])[facility]ENTER[facility] [place] (SBHLAB)[address] Creatinine [Mass/Vol] 2.79 mg/dL High 0.57-1.11 [facility] Comment on above: Performed By: #### L AB17 ####Veneer Stock Layer: NATALIE GARCIA ([id number])[facility] [place] (SBHLAB)[address] GLOMERULAR FILTRATION RATE ML/MIN/1.73 SQ M.PREDICTED 17.0 mL/min/1.73m*2 Low >60.0 [facility] Comment on above: Result Comment: Calc ulation based on the Chronic Kidney Disease Epidemiology Collaboration (CKD-EPI) equation refit without adjustment for race Performed By: #### L AB17 ####Veneer Stock Layer: NATALIE GARCIA ([id number])[facility] [place] (SBHLAB)[address] Glucose [Mass/Vol] 145 mg/dL High 82-115 [facility] Comment on above: Performed By: #### L AB17 ####Veneer Stock Layer: NATALIE GARCIA ([id number])[facility] BARBNEW MEXICO BEHAVIORAL HEALTH INSTITUTE AT L[facility] VEGASN (SBHLAB)[address] Potassium [Moles/Vol] 3.7 mmol/L Normal 3.5-5.1 [facility] Comment on above: Result Comment: [facility] potassium values may be up to 0.5 mmol/L lower than serum values. Performed By: #### L AB17 ####Veneer Stock Layer: NATALIE GARCIA ([id number])[facility] [place] (SBHLAB)[address] Protein [Mass/Vol] 6.5 g/dL Normal 6.4-8.3 [facility] Comment on above: Performed By: #### L AB17 ####Veneer Stock Layer: NATALIE JOSE ([id number])[facility]ENTERJosé Miguel REHMANNEW MEXICO BEHAVIORAL HEALTH INSTITUTE AT LAS VEGASLaurel (SBHLAB)[address] Sodium [Moles/Vol] 134 mmol/L Low 136-145 [facility] Comment on above: Performed By: #### L AB17 ####Veneer Stock Layer: NATALIE SIMONDANIEL ([id number])[facility]ENTERJosé Miguel [facility]CH[facility] (SBHLAB)[address] Urea nitrogen [Mass/Vol] 30 mg/dL High 9-23 [facility] Comment on above: Performed By: #### L AB17 ####Veneer Stock Layer: NATALIE JOSE ([id number])[facility]ENTERJosé Miguel REHMANNEW MEXICO BEHAVIOR[facility] HE[facility] INSTITUTE AT LAS VEGASLaurel (SBHLAB)[address] CULTURE, CATH TIPon 06-06-20 25 CULTURE, CATH TIP Normal [facility] Comment on above: Performed By: #### L [id number] ####Veneer Stock Layer: VASHTI BAILEY ([id number])[facility] [place] [address] Laboratory - Chemistry and C hemistry - challengeon 06-06-2025 Glucose [Mass/Vol] 129 mg/dL High 70 - 100 mg/dL [facility] Glucose [Mass/Vol] 138 mg/dL High 70 - 100 mg/dL [facility] No Panel Informationon 06-06 Interpretation and review of laboratory results Abnormal [facility] Interpretation and review of laboratory results Abnormal [facility] Nursing Noteon 06-06-2025 Nursing Note Normal [facility] PNEUMONIA PCR PANELon 2024 PNEUMONIA PCR PANEL Normal [facility] Comment on above: Performed By: #### L [id number], [id number] ####Veneer Stock Layer: VASHTI BAILEY ([id number])[facility] ([facility])[address] [place] [address] Progress Noteon 06-06-2025 Progress Note Normal [facility] Progress Note Normal [facility] Progress Note Normal [facility] Progress Note Normal [facility] Progress [facility] RESPIRATORY CULTURE AND STAI Non 06-06-2025 RESPIRATORY CULTURE AND STAIN Normal [facility] Comment on above: Performed By: #### L [id number], [id number] ####Veneer Stock Layer: VASHTI BAILEY ([id number])[facility] ([facility])[address] [place] [address] XR Chest Single viewon 06-06 [facility] RADIOLOGY SYSTEM [facility] [id number] 06-05-2025 [id number] Normal [facility] CBC (HEMOGRAM)on 06-05-2025 Erythrocyte distribution width (RBC) [Ratio] 19.4 % High 11.5-15.0 [facility] Comment on above: Performed By: #### L [id number] ####Veneer Stock Layer: NATALIE GARCIA ([id number])[facility] ([facility])[address] [place] [address] Hematocrit (Bld) [Volume fraction] 24.8 % Low 35.0-47.0 [facility] Comment on above: Performed By: #### L [id number] ####Veneer Stock Layer: NATALIE GARCIA ([id number])[facility] ([facility])[address] [place] [address] Hemoglobin (Bld) [Mass/Vol] 7.6 g/dL Low 11.7-16.0 [facility] Comment on above: Performed By: #### L [id number] ####Veneer Stock Layer: NATALIE GARCIA ([id number])[facility] (SBAB)[address] [place] [address] MCH (RBC) [Entitic mass] 25.9 pg Low 26.0-34.0 [facility] Comment on above: Performed By: #### L [id number] ####Veneer Stock Layer: NATALIE GARCIA ([id number])[facility] (SBAB)[address] [place] [address] MCHC 30.6 % Normal 30.5-36.0 [facility] Comment on above: Performed By: #### L [id number] ####Veneer Stock Layer: NATALIE GARCIA ([id number])ELOINA REHMANELIAS (SBHLAB)[address] MCV (RBC) [Entitic vol] 84.6 fL Normal 77.0-99.0 [facility] Comment on above: Performed By: #### L [id number] ####Veneer Stock Layer: NATALIE GARCIA ([id number])[facility]ENTERA TAMARMAGNUSN (SBHLAB)[address] Platelet mean volume (Bld) [Entitic vol] 9.7 fL Normal 9.0-12.7 [facility] Comment on above: Performed By: #### L [id number] ####Veneer Stock Layer: NATALIE GARCIA ([id number])[facility]ENTERJosé Miguel REHMANMAGNUSN (SBHLAB)[address] Platelets (Bld) [#/Vol] 234 10*3/uL Normal 140-440 [facility] Comment on above: Performed By: #### L [id number] ####Veneer Stock Layer: NATALIE GARCIA ([id number])[facility]ENTERJosé Miguel REHMANNEW MEXICO BEHAVIORAL HEALTH INSTITUTE AT L[facility] VEGASN (SBHLAB)[address] RBC (Bld) [#/Vol] 2.93 10*6/uL Low 3.80-5.20 [facility] Comment on above: Performed By: #### L [id number] ####Veneer Stock Layer: NATALIE GARCIA ([id number])[facility]ENTERJosé Miguel BARBMAGNUSN (SBHLAB)[address] [place] [address] [place] WBC (Bld) [#/Vol] 5.7 10*3/uL Normal 3.6-10.7 [facility] Comment on above: Performed By: #### L [id number] ####Veneer Stock Layer: NATALIE GARCIA ([id number])[facility]ENTERJosé Miguel REHMANMAGNUSN (SBHLAB)[address] COMPREHENSIVE METABOLIC PANE Florentin 06-05-2025 Albumin [Mass/Vol] 2.7 g/dL Low 3.4-4.8 [facility] Comment on above: Performed By: #### L AB17 ####Veneer Stock Layer: NATALIE GARCIA ([id number])[facility] [place] (SBHLAB)[address] ALP [Catalytic activity/Vol] 119 U/L Normal 40-150 [facility] Comment on above: Performed By: #### L AB17 ####Veneer Stock Layer: NATALIE GARCIA ([id number])[facility] [place] (SBHLAB)[address] ALT [Catalytic activity/Vol] 13 U/L Normal <30 [facility] Comment on above: Performed By: #### L AB17 ####Veneer Stock Layer: NATALIE GARCIA ([id number])[facility] [place] (SBHLAB)[address] Anion gap [Moles/Vol] 10 mmol/L Normal 3-13 [facility] Comment on above: Performed By: #### L AB17 ####Veneer Stock Layer: NATALIE GARCIA ([id number])[facility]A [facility] (SBHLAB)[address] AST [Catalytic activity/Vol] 21 U/L Normal <34 [facility] Comment on above: Performed By: #### L AB17 ####Veneer Stock Layer: NATALIE GARCIA ([id number])[facility] [place] (SBHLAB)[address] Bilirubin [Mass/Vol] 0.7 mg/dL Normal <1.2 [facility] Comment on above: Performed By: #### L AB17 ####Veneer Stock Layer: NATALIE GARCIA ([id number])[facility] [place] (SBHLAB)[address] Calcium [Mass/Vol] 8.9 mg/dL Normal 8.8-10.0 [facility] Comment on above: Performed By: #### L AB17 ####Veneer Stock Layer: NATALIE GARCIA ([id number])ELOINA BARBMAGNUSN (SBHLAB)[address] Chloride [Moles/Vol] 100 mmol/L Normal 98-107 [facility] Comment on above: Performed By: #### L AB17 ####Veneer Stock Layer: NATALIE GARCIA ([id number])[facility] [place] (SBHLAB)[address] CO2 [Moles/Vol] 27 mmol/L Normal 23-[address] [facility] Comment on above: Performed By: #### L AB17 ####Veneer Stock Layer: NATALIE GARCIA ([id number])[facility] [place] (SBHLAB)[address] Creatinine [Mass/Vol] 1.79 mg/dL High 0.57-1.11 [facility] Comment on above: Performed By: #### L AB17 ####Veneer Stock Layer: NATALIE GARCIA ([id number])[facility] [place] (SBHLAB)[address] GLOMERULAR FILTRATION RATE ML/MIN/1.73 SQ M.PREDICTED 28.9 mL/min/1.73m*2 Low >60.0 [facility] Comment on above: Result Comment: Calc ulation based on the Chronic Kidney Disease Epidemiology Collaboration (CKD-EPI) equation refit without adjustment for race Performed By: #### L AB17 ####Veneer Stock Layer: NATALIE GARCIA ([id number])[facility] [place] (SBHLAB)[address] [place] [address] [place] Glucose [Mass/Vol] 67 mg/dL Low 82-115 [facility] Comment on above: Performed By: #### L AB17 ####Veneer Stock Layer: NATALIE GARCIA ([id number])[facility] [place] (SBHLAB)[address] [place] [address] [place] Potassium [Moles/Vol] 3.9 mmol/L Normal 3.5-5.1 [facility] Comment on above: Result Comment: [facility] potassium values may be up to 0.5 mmol/L lower than serum values. Performed By: #### L AB17 ####Veneer Stock Layer: NATALIE GARCIA ([id number])[facility] [place] (SBHLAB)[address] Protein [Mass/Vol] 6.7 g/dL Normal 6.4-8.3 [facility] Comment on above: Performed By: #### L AB17 ####Veneer Stock Layer: NATALIE GARCIA ([id number])[facility] [place] (SBHLAB)[address] Sodium [Moles/Vol] 137 mmol/L Normal 136-145 [facility] Comment on above: Performed By: #### L AB17 ####Veneer Stock Layer: NATALIE GARCIA ([id number])[facility]A BARBNEW MEXICO BE[facility] HE[facility] IN[facility] AT L[facility] VEGASN (SBHLAB)[address] [place] [address] Urea nitrogen [Mass/Vol] 18 mg/dL Normal 9-23 [facility] Comment on above: Performed By: #### L AB17 ####Veneer Stock Layer: NATALIE GARCIA ([id number])[facility]A BARBNEW MEXICO BE[facility]AV[facility] INSTITUTE AT L[facility] VEGASN (SBHLAB)[address] [place] [address] Progress Noteon 06-05-2025 Progress Note Normal [facility] Progress Note Normal [facility] Progress Note Normal [facility] Progress Note Normal [facility] [id number] 06-04-2025 [id number] Normal [facility] CBC (HEMOGRAM)on 06-04-2025 Erythrocyte distribution width (RBC) [Ratio] 19.5 % High 11.5-15.0 [facility] Comment on above: Performed By: #### L [id number] ####Veneer Stock Layer: NATALIE GARCIA ([id number])[facility]A BARBNEW MEXICO [facility] IN[facility] AT L[facility] VE[facility]ASN (SBHLAB)[address] [place] [address] Hematocrit (Bld) [Volume fraction] 23.8 % Low 35.0-47.0 [facility] Comment on above: Performed By: #### L [id number] ####Veneer Stock Layer: NATALIE GARCIA ([id number])[facility]ENTERJosé Miguel REHMANELIAS (SBHLAB)[address] Hemoglobin (Bld) [Mass/Vol] 7.4 g/dL Low 11.7-16.0 [facility] Comment on above: Performed By: #### L [id number] ####Veneer Stock Layer: NATALIE GARCIA ([id number])[facility]ENTERJosé Miguel REHMANELIAS (SBAB)[address] MCH (RBC) [Entitic mass] 25.7 pg Low 26.0-34.0 [facility] Comment on above: Performed By: #### L [id number] ####Veneer Stock Layer: NATALIE GARCIA ([id number])[facility] ([facility])[address] [place] [address] MCHC 31.1 % Normal 30.5-36.0 [facility] Comment on above: Performed By: #### L [id number] ####Veneer Stock Layer: NATALIE GARCIA ([id number])[facility]ENTERJosé Miguel [facility] ([facility])[address] [place] [address] MCV (RBC) [Entitic vol] 82.6 fL Normal 77.0-99.0 [facility] Comment on above: Performed By: #### L [id number] ####Veneer Stock Layer: NATALIE GARCIA ([id number])[facility]ENTERJosé Miguel [facility]ELIAS (SBAB)[address] [place] [address] Platelet mean volume (Bld) [Entitic vol] 9.8 fL Normal 9.0-12.7 [facility] Comment on above: Performed By: #### L [id number] ####Veneer Stock Layer: NATALIE GARCIA ([id number])[facility] (SBAB)[address] Platelets (Bld) [#/Vol] 247 10*3/uL Normal 140-440 [facility] Comment on above: Performed By: #### L [id number] ####Veneer Stock Layer: NATALIE GARCIA ([id number])[facility] [place] (SBHLAB)[address] RBC (Bld) [#/Vol] 2.88 10*6/uL Low 3.80-5.20 [facility] Comment on above: Performed By: #### L [id number] ####Veneer Stock Layer: NATALIE GARCIA ([id number])[facility] [place] (SBHLAB)[address] WBC (Bld) [#/Vol] 6.2 10*3/uL Normal 3.6-10.7 [facility] Comment on above: Performed By: #### L [id number] ####Veneer Stock Layer: NATALIE GARCIA ([id number])[facility]ENTERJosé Miguel REHMANERTON (SBHLAB)[address] COMPREHENSIVE METABOLIC PANE Florentin 06-04-2025 Albumin [Mass/Vol] 2.4 g/dL Low 3.4-4.8 [facility] Comment on above: Performed By: #### L AB103, LAB17 ####Veneer Stock Layer: NATALIE GARCIA ([id number])[facility] [place] (SBHLAB)[address] ALP [Catalytic activity/Vol] 130 U/L Normal 40-150 [facility] Comment on above: Performed By: #### L AB103, LAB17 ####Veneer Stock Layer: NATALIE GARCIA ([id number])[facility] [place] (SBHLAB)[address] ALT [Catalytic activity/Vol] 11 U/L Normal <30 [facility] Comment on above: Performed By: #### L AB103, LAB17 ####Veneer Stock Layer: NATALIE GARCIA ([id number])[facility] [place] (SBHLAB)[address] Anion gap [Moles/Vol] 11 mmol/L Normal 3-13 [facility] Comment on above: Performed By: #### L AB103, LAB17 ####Veneer Stock Layer: NATALIE GARCIA ([id number])[facility] [place] (SBHLAB)[address] AST [Catalytic activity/Vol] 19 U/L Normal <34 [facility] Comment on above: Performed By: #### L AB103, LAB17 ####Veneer Stock Layer: NATALIE GARCIA ([id number])[facility] [place] (SBHLAB)[address] Bilirubin [Mass/Vol] 0.7 mg/dL Normal <1.2 [facility] Comment on above: Performed By: #### L AB103, LAB17 ####Veneer Stock Layer: NATALIE GARCIA ([id number])[facility] [place] (SBHLAB)[address] Calcium [Mass/Vol] 9.0 mg/dL Normal 8.8-10.0 [facility] Comment on above: Performed By: #### L AB103, LAB17 ####Veneer Stock Layer: NATALIE GARCIA ([id number])[facility] [place] (SBHLAB)[address] Chloride [Moles/Vol] 93 mmol/L Low 98-107 [facility] Comment on above: Performed By: #### L AB103, LAB17 ####Veneer Stock Layer: NATALIE GARCIA ([id number])[facility] [place] (SBHLAB)[address] [place] [address] [place] CO2 [Moles/Vol] 26 mmol/L Normal 23-31 [facility] Comment on above: Performed By: #### L AB103, LAB17 ####Veneer Stock Layer: NATALIE GARCIA ([id number])[facility] [place] (SBHLAB)[address] [place] [address] [place] Creatinine [Mass/Vol] 3.51 mg/dL High 0.57-1.11 [facility] Comment on above: Performed By: #### L AB103, LAB17 ####Veneer Stock Layer: NATALIE GARCIA ([id number])[facility] (HLAB)[address] GLOMERULAR FILTRATION RATE ML/MIN/1.73 SQ M.PREDICTED 12.9 mL/min/1.73m*2 Low >60.0 [facility] Comment on above: Result Comment: Calc ulation based on the Chronic Kidney Disease Epidemiology Collaboration (CKD-EPI) equation refit without adjustment for race Performed By: #### L AB103, LAB17 ####Veneer Stock Layer: NATALIE GARCIA ([id number])[facility] Glucose [Mass/Vol] 147 mg/dL High 82-115 [facility] Comment on above: Performed By: #### L AB103, LAB17 ####Veneer Stock Layer: NATALIE GARCIA ([id number])[facility] ([facility])[address] [place] [address] Potassium [Moles/Vol] 3.4 mmol/L Low 3.5-5.1 [facility] Comment on above: Result Comment: [facility] potassium values may be up to 0.5 mmol/L lower than serum values. Performed By: #### L AB103, LAB17 ####Veneer Stock Layer: NATALIE GARCIA ([id number])[facility] (SBHLAB)[address] Protein [Mass/Vol] 6.5 g/dL Normal 6.4-8.3 [facility] Comment on above: Performed By: #### L AB103, LAB17 ####Veneer Stock Layer: NATALIE GARCIA ([id number])[facility] (HLAB)[address] Sodium [Moles/Vol] 130 mmol/L Low 136-145 [facility] Comment on above: Performed By: #### L AB103, LAB17 ####Veneer Stock Layer: NATALIE [id number])[facility] [place] (SBHLAB)[address] Urea nitrogen [Mass/Vol] 43 mg/dL High 9-23 [facility] Comment on above: Performed By: #### L AB103, LAB17 ####Veneer Stock Layer: NATALIE GARCIA ([id number])[facility] [place] (SBHLAB)[address] Consulton 06-04-2025 Consult Normal [facility] Consult Normal [facility] MAGNESIUMon 06-04-2025 Magnesium [Mass/Vol] 2.1 mg/dL Normal 1.6-2.6 [facility] Comment on above: Result Comment: DORIAN Knight COMMENTS:Higher values can be expected in females during menses. Performed By: #### L AB103, LAB17 ####Veneer Stock Layer: NATALIE GARCIA ([id number])[facility] (SBHLAB)[address] Nursing Noteon 06-04-2025 Nursing Note Normal [facility] Progress Noteon 06-04-2025 [facility] Progress [facility] Progress Note Normal [facility] CBC (HEMOGRAM)on 06-03-2025 Erythrocyte distribution width (RBC) [Ratio] 19.6 % High 11.5-15.0 [facility] Comment on above: Performed By: #### L AB294 ####Veneer Stock Layer: NATALIE GARCIA ([id number])[facility]ENTER[facility] [place] (SBHLAB)[address] Hematocrit (Bld) [Volume fraction] 23.3 % Low 35.0-47.0 [facility] Comment on above: Performed By: #### L AB294 ####Veneer Stock Layer: NATALIE GARCIA ([id number])[facility] [place] (SBHLAB)[address] Hemoglobin (Bld) [Mass/Vol] 7.2 g/dL Low 11.7-16.0 [facility] Comment on above: Performed By: #### L AB294 ####Veneer Stock Layer: NATALIE GARCIA ([id number])[facility]ENTER[facility] [place] (SBHLAB)[address] MCH (RBC) [Entitic mass] 25.8 pg Low 26.0-34.0 [facility] Comment on above: Performed By: #### L AB294 ####Veneer Stock Layer: NATALIE GARCIA ([id number])[facility]ENTER[facility] [place] (SBHLAB)[address] MCHC 30.9 % Normal 30.5-36.0 [facility] Comment on above: Performed By: #### L AB294 ####Veneer Stock Layer: NATALIE GARCIA ([id number])[facility]ENTERJosé Miguel REHMANNEW MEXICO BEHAVIOR[facility] HE[facility] INSTITUTE AT L[facility] VEGASLaurel (SBHLAB)[address] [place] [address] MCV (RBC) [Entitic vol] 83.5 fL Normal 77.0-99.0 [facility] Comment on above: Performed By: #### L AB294 ####Veneer Stock Layer: NATALIE GARCIA ([id number])[facility]ENTER[facility] [place] (SBHLAB)[address] Platelet mean volume (Bld) [Entitic vol] 9.7 fL Normal 9.0-12.7 [facility] Comment on above: Performed By: #### L AB294 ####Veneer Stock Layer: NATALIE GARCIA ([id number])[facility]ENTER[facility] [place] (SBHLAB)[address] [place] [address] Platelets (Bld) [#/Vol] 229 10*3/uL Normal 140-440 [facility] Comment on above: Performed By: #### L AB294 ####Veneer Stock Layer: NATALIE GARCIA ([id number])[facility]ENTERJosé Miguel REHMANNEW MEXICO BEHAVIORAL [facility] INSTITUTE AT L[facility] VEGASLaurel (SBHLAB)[address] RBC (Bld) [#/Vol] 2.79 10*6/uL Low 3.80-5.20 [facility] Comment on above: Performed By: #### L AB294 ####Veneer Stock Layer: NATALIE GARCIA ([id number])[facility] [place] (SBHLAB)[address] WBC (Bld) [#/Vol] 6.1 10*3/uL Normal 3.6-10.7 [facility] Comment on above: Performed By: #### L AB294 ####Veneer Stock Layer: NATALIE GARCIA ([id number])[facility] [place] (SBHLAB)[address] COMPREHENSIVE METABOLIC PANE Florentin 06-03-2025 Albumin [Mass/Vol] 2.4 g/dL Low 3.4-4.8 [facility] Comment on above: Performed By: #### L AB103, LAB17 ####Veneer Stock Layer: NATALIE GARICA ([id number])[facility] [place] (SBHLAB)[address] ALP [Catalytic activity/Vol] 130 U/L Normal 40-150 [facility] Comment on above: Performed By: #### L AB103, LAB17 ####Veneer Stock Layer: NATALIE GARCIA ([id number])[facility] [place] (SBHLAB)[address] ALT [Catalytic activity/Vol] 11 U/L Normal <30 [facility] Comment on above: Performed By: #### L AB103, LAB17 ####Veneer Stock Layer: NATALIE GARCIA ([id number])[facility] [place] (SBHLAB)[address] Anion gap [Moles/Vol] 9 mmol/L Normal 3-13 [facility] Comment on above: Performed By: #### L AB103, LAB17 ####Veneer Stock Layer: NATALIE GARCIA ([id number])[facility] [place] (SBHLAB)[address] AST [Catalytic activity/Vol] 27 U/L Normal <34 [facility] Comment on above: Performed By: #### L AB103, LAB17 ####Veneer Stock Layer: NATALIE GARCIA ([id number])[facility] [place] (SBHLAB)[address] Bilirubin [Mass/Vol] 0.8 mg/dL Normal <1.2 [facility] Comment on above: Performed By: #### L AB103, LAB17 ####Veneer Stock Layer: NATALIE GARCIA ([id number])[facility] [place] (SBHLAB)[address] Calcium [Mass/Vol] 8.7 mg/dL Low 8.8-10.0 [facility] Comment on above: Performed By: #### L AB103, LAB17 ####Veneer Stock Layer: NATALIE GARCIA ([id number])[facility] [place] (SBHLAB)[address] Chloride [Moles/Vol] 95 mmol/L Low 98-107 [facility] Comment on above: Performed By: #### L AB103, LAB17 ####Veneer Stock Layer: NATALIE GARCIA ([id number])[facility] [place] (SBHLAB)[address] CO2 [Moles/Vol] 27 mmol/L Normal 23-[address] [facility] Comment on above: Performed By: #### L AB103, LAB17 ####Veneer Stock Layer: NATALIE GARCIA ([id number])[facility] [place] (SBHLAB)[address] Creatinine [Mass/Vol] 2.39 mg/dL High 0.57-1.11 [facility] Comment on above: Performed By: #### L AB103, LAB17 ####Veneer Stock Layer: NATALIE GARCIA ([id number])[facility] [place] (SBHLAB)[address] GLOMERULAR FILTRATION RATE ML/MIN/1.73 SQ M.PREDICTED 20.4 mL/min/1.73m*2 Low >60.0 [facility] Comment on above: Result Comment: Calc ulation based on the Chronic Kidney Disease Epidemiology Collaboration (CKD-EPI) equation refit without adjustment for race Performed By: #### L AB103, LAB17 ####Veneer Stock Layer: NATALIE GARCIA ([id number])SIMINA [place] (SBHLAB)[address] Glucose [Mass/Vol] 145 mg/dL High 82-115 [facility] Comment on above: Performed By: #### L AB103, LAB17 ####Veneer Stock Layer: NATALIE GARCIA ([id number])[facility] [place] (SBHLAB)[address] [place] [address] [place] Potassium [Moles/Vol] 3.3 mmol/L Low 3.5-5.1 [facility] Comment on above: Result Comment: [facility] potassium values may be up to 0.5 mmol/L lower than serum values. Performed By: #### L AB103, LAB17 ####Veneer Stock Layer: NATALIE GARCIA ([id number])[facility] [place] (SBHLAB)[address] Protein [Mass/Vol] 6.4 g/dL Normal 6.4-8.3 [facility] Comment on above: Performed By: #### L AB103, LAB17 ####Veneer Stock Layer: NATALIE GARCIA ([id number])[facility] [place] (SBHLAB)[address] [place] [address] [place] Sodium [Moles/Vol] 131 mmol/L Low 136-145 [facility] Comment on above: Performed By: #### L AB103, LAB17 ####Veneer Stock Layer: NATALIE GARCIA ([id number])[facility] [place] (SBHLAB)[address] [place] [address] [place] Urea nitrogen [Mass/Vol] 31 mg/dL High 9-23 [facility] Comment on above: Performed By: #### L AB103, LAB17 ####Veneer Stock Layer: NATALIE GARCIA ([id number])[facility]ENTERJos[facility] Miguel [place] (SBHLAB)[address] IRON AND TIBCon 06-03-2025 IRON BINDING CAPACITY 184 ug/dL Low 250-450 [facility] Comment on above: Performed By: #### L AB829 ####Veneer Stock Layer: NATALIE GARCIA ([id number])[facility] (SBHLAB)[address] IRON SATURATION 21.2 % Normal 20.0-50.[address] [facility] Comment on above: Performed By: #### L AB829 ####Veneer Stock Layer: NATALIE GARCIA ([id number])[facility] (SBHLAB)[address] IRON, TOTAL 39 ug/dL Low 50-170 [facility] Comment on above: Performed By: #### L AB829 ####Veneer Stock Layer: NATALIE GARCIA ([id number])[facility] (SBHLAB)[address] MAGNESIUMon 06-03-2025 Magnesium [Mass/Vol] 2.0 mg/dL Normal 1.6-2.6 [facility] Comment on above: Result Comment: DORIAN Knight COMMENTS:Higher values can be expected in females during menses. Performed By: #### L AB103, LAB17 ####Veneer Stock Layer: NATALIE GARCIA ([id number])[facility] (SBHLAB)[address] Progress Noteon 06-03-2025 Progress Note Normal [facility] Progress Note Normal [facility] C. DIFFICILE BY PCR WITH REF ALYSSA TO EIAon 06-02-2025 C. DIFFICILE BY PCR WITH REFLEX TO EIA Normal [facility] Comment on above: Performed By: #### L AB257, [id number], [id number] ####Veneer Stock Layer: VASHTI BAILEY ([id number])[facility] (SACLAB)[address] [place] [address] CBC (HEMOGRAM)on 06-02-2025 Erythrocyte distribution width (RBC) [Ratio] 19.5 % High 11.5-15.0 [facility] Comment on above: Performed By: #### L AB294 ####Veneer Stock Layer: NATALIE GARCIA ([id number])ELOINA REHMANELIAS (SBHLAB)[address] Hematocrit (Bld) [Volume fraction] 23.7 % Low 35.0-47.0 [facility] Comment on above: Performed By: #### L AB294 ####Veneer Stock Layer: NATALIE GARCIA ([id number])[facility]ENTERJosé Miguel [facility] (SBHLAB)[address] Hemoglobin (Bld) [Mass/Vol] 7.4 g/dL Low 11.7-16.0 [facility] Comment on above: Performed By: #### L AB294 ####Veneer Stock Layer: NATALIE GARCIA ([id number])[facility]ENTERJosé Miguel RE[facility]MANNEW MEXICO [facility] IN[facility] AT L[facility] VEGASLaurel (SBHLAB)[address] MCH (RBC) [Entitic mass] 26.0 pg Normal 26.0-34.0 [facility] Comment on above: Performed By: #### L AB294 ####Veneer Stock Layer: NATALIE GARCIA ([id number])[facility]ENTERJosé Miguel RE[facility]MANNEW MEXICO [facility] AT L[facility] VEGASLaurel (SBAB)[address] [place] [address] MCHC 31.2 % Normal 30.5-36.0 [facility] Comment on above: Performed By: #### L AB294 ####Veneer Stock Layer: NATALIE GARCIA ([id number])[facility]ENTERJosé Miguel REHMANNEW MEXICO BE[facility] AT L[facility] VEGASLaurel (SBHLAB)[address] MCV (RBC) [Entitic vol] 83.2 fL Normal 77.0-99.0 [facility] Comment on above: Performed By: #### L AB294 ####Veneer Stock Layer: NATALIE GARCIA ([id number])[facility]ENTERJosé Miguel REHMANNEW MEXICO BE[facility] IN[facility] AT L[facility] VEGASLaurel (SBHLAB)[address] Platelet mean volume (Bld) [Entitic vol] 10.0 fL Normal 9.0-12.7 [facility] Comment on above: Performed By: #### L AB294 ####Veneer Stock Layer: NATALIE GARCIA ([id number])SIMINA TAMARELIAS (SBHLAB)[address] Platelets (Bld) [#/Vol] 231 10*3/uL Normal 140-440 [facility] Comment on above: Performed By: #### L AB294 ####Veneer Stock Layer: NATALIE GARCIA ([id number])[facility] [place]ARMAGNUSN (SBHLAB)[address] RBC (Bld) [#/Vol] 2.85 10*6/uL Low 3.80-5.20 [facility] Comment on above: Performed By: #### L AB294 ####Veneer Stock Layer: NATALIE GARCIA ([id number])[facility] [place] (SBHLAB)[address] WBC (Bld) [#/Vol] 5.1 10*3/uL Normal 3.6-10.7 [facility] Comment on above: Performed By: #### L AB294 ####Veneer Stock Layer: NATALIE GARCIA ([id number])[facility]ENTERJosé Miguel REHMANMAGNUSN (SBHLAB)[address] COMPREHENSIVE METABOLIC PANE Florentin 06-02-2025 Albumin [Mass/Vol] 2.6 g/dL Low 3.4-4.8 [facility] Comment on above: Performed By: #### L AB17, [id number] ####Veneer Stock Layer: NATALIE GARCIA ([id number])[facility] [place] (SBHLAB)[address] ALP [Catalytic activity/Vol] 129 U/L Normal 40-150 [facility] Comment on above: Performed By: #### L AB17, [id number] ####Veneer Stock Layer: NATALIE GARCIA ([id number])[facility] [place] (SBHLAB)[address] ALT [Catalytic activity/Vol] 10 U/L Normal <30 [facility] Comment on above: Performed By: #### L AB17, [id number] ####Veneer Stock Layer: NATALIE GARCIA ([id number])SIMINA LANN (SBHLAB)[address] Anion gap [Moles/Vol] 11 mmol/L Normal 3-13 [facility] Comment on above: Performed By: #### L AB17, [id number] ####Veneer Stock Layer: NATALIE GARCIA ([id number])[facility] [place] (SBHLAB)[address] AST [Catalytic activity/Vol] 23 U/L Normal <34 [facility] Comment on above: Performed By: #### L AB17, [id number] ####Veneer Stock Layer: NATALIE GARCIA ([id number])[facility] [place] (SBHLAB)[address] Bilirubin [Mass/Vol] 1.1 mg/dL Normal <1.2 [facility] Comment on above: Performed By: #### L AB17, [id number] ####Veneer Stock Layer: NATALIE GARCIA ([id number])[facility] [place] (SBHLAB)[address] Calcium [Mass/Vol] 8.8 mg/dL Normal 8.8-10.0 [facility] Comment on above: Performed By: #### L AB17, [id number] ####Veneer Stock Layer: NATALIE GARCIA ([id number])[facility] [place] (SBHLAB)[address] [place] [address] [place] Chloride [Moles/Vol] 98 mmol/L Normal 98-107 [facility] Comment on above: Performed By: #### L AB17, [id number] ####Veneer Stock Layer: NATALIE GARCIA ([id number])[facility] [place] (SBHLAB)[address] [place] [address] [place] CO2 [Moles/Vol] 28 mmol/L Normal 23-[address] [facility] Comment on above: Performed By: #### L AB17, [id number] ####Veneer Stock Layer: NATALIE GARCIA ([id number])[facility] CENTERJosé Miguel [place] (SBHLAB)[address] Creatinine [Mass/Vol] 1.57 mg/dL High 0.57-1.11 [facility] Comment on above: Performed By: #### L AB17, [id number] ####Veneer Stock Layer: NATALIE GARCAI ([id number])[facility]ENTERJosé Miguel [place] (SBHLAB)[address] GLOMERULAR FILTRATION RATE ML/MIN/1.73 SQ M.PREDICTED 33.8 mL/min/1.73m*2 Low >60.0 [facility] Comment on above: Result Comment: Calc ulation based on the Chronic Kidney Disease Epidemiology Collaboration (CKD-EPI) equation refit without adjustment for race Performed By: #### L AB17, [id number] ####Veneer Stock Layer: NATALIE GARCIA ([id number])[facility]ENTERJosé Miguel [place] (SBHLAB)[address] Glucose [Mass/Vol] 94 mg/dL Normal 82-115 [facility] Comment on above: Performed By: #### L AB17, [id number] ####Veneer Stock Layer: NATALIE GARCIA ([id number])[facility] [place] (SBHLAB)[address] [place] [address] [place] Potassium [Moles/Vol] 3.1 mmol/L Low 3.5-5.1 [facility] Comment on above: Result Comment: [facility] potassium values may be up to 0.5 mmol/L lower than serum values. Performed By: #### L AB17, [id number] ####Veneer Stock Layer: NATALIE GARCIA ([id number])[facility] [place] (SBHLAB)[address] Protein [Mass/Vol] 6.5 g/dL Normal 6.4-8.3 [facility] Comment on above: Performed By: #### L AB17, [id number] ####Veneer Stock Layer: NATALIE SIMONErlindaTRICIA ([id number])[facility] (SBHLAB)[address] Sodium [Moles/Vol] 137 mmol/L Normal 136-145 [facility] Comment on above: Performed By: #### L AB17, [id number] ####Veneer Stock Layer: NATALIE SIMONErlindaTRICIA ([id number])[facility] (SBHLAB)[address] Urea nitrogen [Mass/Vol] 20 mg/dL Normal 9-23 [facility] Comment on above: Performed By: #### L AB17, [id number] ####Veneer Stock Layer: NATALIE SIMONDANIEL ([id number])[facility] (SBHLAB)[address] Consulton 06-02-2025 Consult Normal [facility] FERRITINon 06-02-2025 Ferritin [Mass/Vol] 613 ng/mL High 5-204 [facility] Comment on above: Result Comment: DORIAN Knight COMMENTS:Ferritin levels below 10 ng/mL have been reported as indicative of iron deficiency anemia. Performed By: #### L AB69, LAB68, LAB67 ####Veneer Stock Layer: NATALIE SIMONDANIEL ([id number])[facility] (SBHLAB)[address] FOLATEon 06-02-2025 FOLATE RESULT 12.6 ng/mL Normal 7.0-31.4 [facility] Comment on above: Performed By: #### L AB69, LAB68, LAB67 ####Veneer Stock Layer: NATALIE GARCIA ([id number])[facility] (SBHLAB)[address] GASTROINTESTINAL PCR PANELon 06-02-2025 GASTROINTESTINAL PCR PANEL Normal [facility] Comment on above: Performed By: #### L AB257, [id number], [id number] ####Veneer Stock Layer: VASHTI BAILEY ([id number])[facility] (SACLAB)[address] [place] [address] HEPATITIS B SURFACE ANTIBODY on 06-02-2025 HEPATITIS B VIRUS SURFACE AB <8.0 Normal [facility] Comment on above: Result Comment: ORDE R COMMENTS:Interpretation:<8.0 Non-Reactive8.0-11.9 Equivocal>= 12.0 Ab DetectedNote: If an equivocal result is interpreted, an antibody status is unable to be determined. Collect new specimen if clinically indicated. Performed By: #### L AB472, [id number] ####Veneer Stock Layer: VASHTI BAILEY ([id number])[facility] ([facility])[address] [place] [address] HEPATITIS B SURFACE ANTIGENo n 06-02-2025 HEPATITIS B VIRUS SURFACE AG Not detected Normal Not Detected [facility] Comment on above: Performed By: #### L AB472, [id number] ####Veneer Stock Layer: VASHTI BAILEY ([id number])[facility] ([facility])[address] [place] [address] LAB ONLY - C DIFF EIAon LAB ONLY - C DIFF EIA C DIFFICILE TOXINS A+B, EIA (A) Reference Positive Negative ORDER COMMENTS: (A) C. Difficile infection is likely present. Correlate with other clinical data. Methodology: Enzyme Immunoassay Normal [facility] Comment on above: Performed By: #### L AB257, [id number], [id number] ####Veneer Stock Layer: VASHTI BAILEY ([id number])[facility] ([facility])[address] [place] [address] MAGNESIUMon 06-02-2025 Magnesium [Mass/Vol] 2.0 mg/dL Normal 1.6-2.6 [facility] Comment on above: Result Comment: ORDE R COMMENTS:Higher values can be expected in females during menses. Performed By: #### L AB17, [id number] ####Veneer Stock Layer: NATALIE GARCIA ([id number])[facility] (SBHLAB)[address] [place] [address] Progress Noteon 06-02-2025 Progress [facility] Progress Note Normal [facility] Progress Note Normal [facility] VITAMIN B12on 06-02-2025 Cobalamin (Vitamin B12) [Mass/Vol] 1032 pg/mL High 213-816 [facility] Comment on above: Performed By: #### L AB69, LAB68, LAB67 ####Veneer Stock Layer: NATALIE GARCIA ([id number])[facility] [place] (SBHLAB)[address] BASIC METABOLIC PANELon Anion gap [Moles/Vol] 11 mmol/L Normal 3-13 [facility] Comment on above: Performed By: #### L AB103, [id number], LAB15, LAB20 ####Veneer Stock Layer: NATALIE GARCIA ([id number])[facility] [place] (SBHLAB)[address] Calcium [Mass/Vol] 9.4 mg/dL Normal 8.8-10.0 [facility] Comment on above: Performed By: #### L AB103, [id number], LAB15, LAB20 ####Veneer Stock Layer: NATALIE GARCIA ([id number])[facility] [place] (SBHLAB)[address] Chloride [Moles/Vol] 93 mmol/L Low 98-107 [facility] Comment on above: Performed By: #### L AB103, [id number], LAB15, LAB20 ####Veneer Stock Layer: NATALIE GARCIA ([id number])[facility] [place] (SBHLAB)[address] [place] [address] [place] CO2 [Moles/Vol] 30 mmol/L Normal 23-[address] [facility] Comment on above: Performed By: #### L AB103, [id number], LAB15, LAB20 ####Veneer Stock Layer: NATALIE GARCIA ([id number])[facility]BNEW [facility] (SBHLAB)[address] [place] [address] [place] Creatinine [Mass/Vol] 2.34 mg/dL High 0.57-1.11 [facility] Comment on above: Performed By: #### L AB103, [id number], LAB15, LAB20 ####[employer] Layer: NATALIE GARCIA ([id number])[facility] (SBHLAB)[address] GLOMERULAR FILTRATION RATE ML/MIN/1.73 SQ M.PREDICTED 21.0 mL/min/1.73m*2 Low >60.0 [facility] Comment on above: Result Comment: Calc ulation based on the Chronic Kidney Disease Epidemiology Collaboration (CKD-EPI) equation refit without adjustment for race Performed By: #### L 103, [id number], LAB15, LAB20 ####[employer]: NATALIE GARCIA ([id number])[facility] (SBHLAB)[address] Glucose [Mass/Vol] 174 mg/dL High 82-115 [facility] Comment on above: Performed By: #### Perez GARCIA103, [id number], LAB15, LAB20 ####[employer]: NATALIE GARCIA ([id number])[facility] (SBHLAB)[address] [place] [address] [place] Potassium [Moles/Vol] 3.5 mmol/L Normal 3.5-5.1 [facility] Comment on above: Result Comment: [facility] potassium values may be up to 0.5 mmol/L lower than serum values. Performed By: #### Perez [id number], [id number], LAB15, LAB20 ####Veneer Stock Layer: NATALIE GARCIA ([id number])[facility] (SBHLAB)[address] [place] [address] [place] Sodium [Moles/Vol] 134 mmol/L Low 136-145 [facility] Comment on above: Performed By: #### L AB103, [id number], LAB15, LAB20 ####[employer]eneer Stock Layer: NATALIE GARCIA ([id number])[facility] (SBHLAB)[address] [place] [address] [place] Urea nitrogen [Mass/Vol] 41 mg/dL High 9-23 [facility] Comment on above: Performed By: #### L AB103, [id number], LAB15, LAB20 ####Veneer Stock Layer: NATALIE GARCIA ([id number])[facility] ([facility])[address] BLOOD TYPE AND SCREEN GELon 06-01-2025 ABO GROUPING A Normal [facility] Comment on above: Performed By: #### L [id number] ####Veneer Stock Layer: NATALIE GARCIA ([id number])[facility] BLOOD BANK ([facility])[address] RH TYPE IN BLOOD Positive Normal [facility] Comment on above: Performed By: #### L [id number] ####Veneer Stock Layer: NATALIE GARCIA ([id number])[facility] B[facility]OD [facility] ([facility])[address] CBC WITH AUTO DIFFERENTIALon 06-01-2025 Basophils (Bld) [#/Vol] 0.0 10*3/uL Normal 0.0-0.2 [facility] Comment on above: Performed By: #### L [id number] ####[employer] Stock Layer: NATALIE GARCIA ([id number])[facility] ([facility])[address] [place] [address] Basophils/100 WBC (Bld) 0.7 % Normal 0.0-2.0 [facility] Comment on above: Performed By: #### L [id number] ####[employer] Stock Layer: NATALIE GARCIA ([id number])[facility] Eosinophils (Bld) [#/Vol] 0.2 10*3/uL Normal 0.0-0.5 [facility] Comment on above: Performed By: #### L [id number] ####Veneer Stock Layer: NATALIE GARCIA ([id number])[facility] [place] [address] [place] Eosinophils/100 WBC (Bld) 2.9 % Normal 0.0-6.0 [facility] Comment on above: Performed By: #### L [id number] ####Veneer Stock Layer: NATALIE DENISETRICIA ([id number])[facility] (SBHLAB)[address] Erythrocyte distribution width (RBC) [Ratio] 20.6 % High 11.5-15.0 [facility] Comment on above: Performed By: #### L [id number] ####Veneer Stock Layer: NATALIE SIMONDANIEL ([id number])[facility])[address] Hematocrit (Bld) [Volume fraction] 23.0 % Low 35.0-47.0 [facility] Comment on above: Performed By: #### L [id number] ####[employer] Stock Layer: NATALIE DENISETRICIA ([id number])[facility] (SBAB)[address] Hemoglobin (Bld) [Mass/Vol] 7.1 g/dL Low 11.7-16.0 [facility] Comment on above: Performed By: #### L [id number] ####V[employer] Stock Layer: NATALIE GARCIA ([id number])[facility] (SBAB)[address] [place] [address] IMMATURE GRANS % 0.4 % Normal 0.0-2.0 [facility] Comment on above: Performed By: #### L [id number] ####V[employer]er Stock Layer: NATALIE DENISETRICIA ([id number])[facility] (SB[facility])[address] IMMATURE GRANS ABSOLUTE 0.0 10*3/uL Normal <0.1 [facility] Comment on above: Performed By: #### L [id number] ####Veneer Stock Layer: NATALIE GARCIA ([id number])[facility] (SBHLAB)[address] Lymphocytes (Bld) [#/Vol] 0.9 10*3/uL Low 1.0-4.3 [facility] Comment on above: Performed By: #### L [id number] ####Veneer Stock Layer: NATALIE SIMONErlindaTRICIA ([id number])[facility] (SBHLAB)[address] Lymphocytes/100 WBC (Bld) 15.7 % Normal 15.0-45.0 [facility] Comment on above: Performed By: #### L [id number] ####Veneer Stock Layer: NATALIE JOSE ([id number])[facility] [place] (SBHLAB)[address] MCH (RBC) [Entitic mass] 25.4 pg Low 26.0-34.0 [facility] Comment on above: Performed By: #### L [id number] ####Veneer Stock Layer: NATALIE SIMONDANIEL ([id number])[facility] [place] (SBHLAB)[address] MCHC 30.9 % Normal 30.5-36.0 [facility] Comment on above: Performed By: #### L [id number] ####Veneer Stock Layer: NATALIE DENISETRICIA ([id number])[facility] [place] (SBHLAB)[address] MCV (RBC) [Entitic vol] 82.1 fL Normal 77.0-99.0 [facility] Comment on above: Performed By: #### L [id number] ####Veneer Stock Layer: NATALIE DENISETRICIA ([id number])[facility] [place] (SBHLAB)[address] Monocytes (Bld) [#/Vol] 0.6 10*3/uL Normal 0.0-0.9 [facility] Comment on above: Performed By: #### L [id number] ####Veneer Stock Layer: NATALIE DENISETRICIA ([id number])[facility] [place] (SBHLAB)[address] [place] [address] [place] Monocytes/100 WBC (Bld) 11.4 % Normal 5.0-13.0 [facility] Comment on above: Performed By: #### L [id number] ####Veneer Stock Layer: NATALIE GARCIA ([id number])[facility] [place] (SB[facility]AB)[address] NEUTROPHILS ABSOLUTE 3.8 10*3/uL Normal 1.8-7.5 [facility] Comment on above: Performed By: #### L [id number] ####Veneer Stock Layer: NATALIE GARCIA ([id number])[facility] [place] (SB[facility]AB)[address] Neutrophils/100 WBC (Bld) 68.9 % Normal 38.0-82.0 [facility] Comment on above: Performed By: #### L [id number] ####Veneer Stock Layer: NATALIE GARCIA ([id number])[facility] [place] (SB[facility]AB)[address] NRBC 0.0 /100 WBCs Normal 0.0-2.0 [facility] Comment on above: Performed By: #### L [id number] ####Veneer Stock Layer: NATALIE GARCIA ([id number])[facility] [place] (SB[facility]AB)[address] Platelet mean volume (Bld) [Entitic vol] 9.9 fL Normal 9.0-12.7 [facility] Comment on above: Performed By: #### L [id number] ####Veneer Stock Layer: NATALIE GARCIA ([id number])[facility] [place] (SBHLAB)[address] [place] [address] [place] Platelets (Bld) [#/Vol] 244 10*3/uL Normal 140-440 [facility] Comment on above: Performed By: #### L [id number] ####Veneer Stock Layer: NATALIE GARCIA ([id number])[facility] [place] (SB[facility]AB)[address] RBC (Bld) [#/Vol] 2.80 10*6/uL Low 3.80-5.20 [facility] Comment on above: Performed By: #### L [id number] ####Veneer Stock Layer: NATALIE GARCIA ([id number])[facility] (SBHLAB)[address] WBC (Bld) [#/Vol] 5.5 10*3/uL Normal 3.6-10.7 [facility] Comment on above: Performed By: #### L [id number] ####Veneer Stock Layer: NATALIE GARCIA ([id number])[facility] (SBHLAB)[address] CBC-Complete Blood Cnt No Di ffon 06-01-2025 Erythrocyte distribution width (RBC) [Ratio] 20.5 % High 11.6-14.6 [facility] Comment on above: Performed By: #### L 100.0500, L100.4500 ####[facility] [address] [place], [address] Hematocrit (Bld) [Volume fraction] 21.6 % Low 37-47 [facility] Comment on above: Performed By: #### L 100.0500, L100.4500 ####[facility] [address] [place], [address] Hemoglobin (Bld) [Mass/Vol] 6.5 g/dL Low 12.0-15.0 [facility] Comment on above: Performed By: #### L 100.0500, L100.4500 ####[facility] [address] [place], [address] MCH (RBC) [Entitic mass] 25.1 pg Low 27.0-32.0 [facility] Comment on above: Performed By: #### L 100.0500, L100.4500 ####[facility] [address] [place], [address] MCHC (RBC) [Mass/Vol] 30.1 g/dL Low 32-36 [facility] Comment on above: Performed By: #### L 100.0500, L100.4500 ####[facility] [address] [place], [address] MCV (RBC) [Entitic vol] 83.4 fL Normal 81-99 [facility] Comment on above: Performed By: #### L 100.0500, L100.4500 ####[facility] [address] [place], [address] Platelet mean volume (Bld) [Entitic vol] 10.1 fL Normal 6.2-12.0 [facility] Comment on above: Performed By: #### L 100.0500, L100.4500 ####[facility] [address] [place], [address] Platelets (Bld) [#/Vol] 215 10*3/uL Normal 150-450 [facility] Comment on above: Performed By: #### L 100.0500, L100.4500 ####[facility] [address] [place], [address] RBC (Bld) [#/Vol] 2.59 10*6/uL Low 4.2-5.[address] [facility] Comment on above: Performed By: #### L 100.0500, L100.4500 ####[facility] [address] [place], [address] RDW SD 63.2 fl High 35.1-43.9 [facility] Comment on above: Performed By: #### L 100.0500, L100.4500 ####[facility] [address] [place], [address] WBC (Bld) [#/Vol] 4.9 10*3/uL Normal 4.4-11.[address] [facility] Comment on above: Performed By: #### L 100.0500, L100.4500 ####[facility] [address] [place], [address] Consulton 06-01-2025 Consult Normal [facility] Differential Commenton 06-01 SMEAR COMMENT SCANNED Normal [facility] Comment on above: Result Comment: 2+ A NISOCYTOSIS Performed By: #### L 100.0500, L100.4500 ####[facility] [address] [place], [address] ECG 12-LEADon 06-01-2025 ECG 12-LEAD IMPRESSION: Sinus rhythm Atrial premature complexes Left bundle branch block No previous available for comparison Electronically Signed On 06-01-2025 13:44:04 EDT by Omid Orona [facility] ED Provider Noteon ED Provider Note Normal [facility] HEMOGLOBIN AND HEMATOCRIT, B LOODon 06-01-2025 Hematocrit (Bld) [Volume fraction] 25.2 % Low 35.0-47.0 [facility] Comment on above: Order Comment: Recom mend 1 hour post transfusion Performed By: #### L [id number] ####Veneer Stock Layer: NATALIE GARCIA ([id number])[facility] (SBHLAB)[address] [place] [address] Hemoglobin (Bld) [Mass/Vol] 7.8 g/dL Low 11.7-16.0 [facility] Comment on above: Order Comment: Recom mend 1 hour post transfusion Performed By: #### L [id number] ####Veneer Stock Layer: NATALIE GARCIA ([id number])[facility] (SBHLAB)[address] [place] [address] HEPATIC FUNCTION PANELon Albumin [Mass/Vol] 2.2 g/dL Low 3.4-4.8 [facility] Comment on above: Performed By: #### L AB103, [id number], LAB15, LAB20 ####Veneer Stock Layer: NATALIE GARCIA ([id number])[facility] (SBHLAB)[address] ALP [Catalytic activity/Vol] 148 U/L Normal 40-150 [facility] Comment on above: Performed By: #### L AB103, [id number], LAB15, LAB20 ####Veneer Stock Layer: NATALIE DENISETRICIA ([id number])[facility] ([facility])[address] ALT [Catalytic activity/Vol] 15 U/L Normal <30 [facility] Comment on above: Performed By: #### L AB103, [id number], LAB15, LAB20 ####Veneer Stock Layer: NATALIE GARCIA ([id number])[facility] (SBHLAB)[address] AST [Catalytic activity/Vol] 21 U/L Normal <34 [facility] Comment on above: Performed By: #### L AB103, [id number], LAB15, LAB20 ####Veneer Stock Layer: NATALIE GARCIA ([id number])[facility] (SBHLAB)[address] [place] [address] [place] Bilirubin [Mass/Vol] 0.5 mg/dL Normal <1.2 [facility] Comment on above: Performed By: #### L AB103, [id number], LAB15, LAB20 ####Veneer Stock Layer: NATALIE DENISETRICIA ([id number])[facility] (SBHLAB)[address] Bilirubin.indirect [Mass/Vol] 0.2 mg/dL Normal <0.5 [facility] Comment on above: Performed By: #### L AB103, [id number], LAB15, LAB20 ####Veneer Stock Layer: NATALIE GARCIA ([id number])[facility] (SBHLAB)[address] [place] [address] [place] Protein [Mass/Vol] 6.5 g/dL Normal 6.4-8.3 [facility] Comment on above: Result Comment: Seru m protein values are higher than plasma values. Samples from recumbent persons are lower by up to 0.5 g/dL as compared to ambulatory persons. After 60 years values are lower by up to 0.2 g/dL. Performed By: #### L AB103, [id number], LAB15, LAB20 ####Veneer Stock Layer: NATALIE GARCIA ([id number])[facility] ([facility])[address] HIGH SENSITIVITY TROPONIN, S ERIAL BASELINEon 06-01-2025 TROPONIN HS SERIAL BASELINE 12 ng/L Normal <=14 [facility] Comment on above: Result Comment: In i ndividuals presenting with symptoms > 2h, a baseline troponin <= 5 ng/L suggests acutecardiac injury is unlikely and further serial testing is generally not indicated. Performed By: #### L AB103, [id number], LAB15, LAB20 ####Veneer Stock Layer: NATALIE GARCIA ([id number])[facility] ([facility])[address] [place] [address] HIGH SENSITIVITY TROPONIN, S ERIAL, SECOND TESTon 06-01-2025 2H TROPONIN HS (SERIAL 2ND TROPONIN) 13 ng/L Normal <=14 [facility] Comment on above: Result Comment: Risi ng or falling troponin delta below 2 ng/L as compared to baseline value suggests thatacute cardiac injury is unlikely. Performed By: #### L [id number] ####Veneer Stock Layer: NATALIE GARCIA ([id number])[facility] ([facility])[address] [place] [address] MAGNESIUMon 06-01-2025 Magnesium [Mass/Vol] 2.1 mg/dL Normal 1.6-2.6 [facility] Comment on above: Result Comment: ORDE R COMMENTS:Higher values can be expected in females during menses. Performed By: #### L AB103, [id number], LAB15, LAB20 ####Veneer Stock Layer: NATALIE GARCIA ([id number])[facility] ([facility])[address] Nursing Noteon 06-01-2025 Nursing Note Normal [facility] Ova and Parasites 8623on OP Normal [facility] Comment on above: Performed By: #### M 600.5000 ####[facility] [address] [place], [address] .GFRon 04-18-2025 Estimated Glomerular Filtration Rate 12 ml/min/1.73sqm Normal [facility] Comment on above: Result Comment: [...] C BC, GFR, MORPH, RFP, DIFF #### [address] [address] BMPon 04-18-2025 BUN/Creatinine Ratio 13.5 ratio Normal 10.0-22.0 [facility] Comment on above: Performed By: #### C BC, GFR, MORPH, RFP, DIFF #### [address] [address] Calcium [Mass/Vol] 10.0 mg/dL Normal 8.7-10.4 [facility] Comment on above: Performed By: #### C BC, GFR, MORPH, RFP, DIFF #### [address] [address] Chloride [Moles/Vol] 96 mmol/L Low 98-110 [facility] Comment on above: Performed By: #### C BC, GFR, MORPH, RFP, DIFF #### [address] [address] CO2 [Moles/Vol] 30 mmol/L Normal 22-32 [facility] Comment on above: Performed By: #### C BC, GFR, MORPH, RFP, DIFF #### [address] [address] Creatinine [Mass/Vol] 3.64 mg/dL High 0.50-1.20 [facility] Comment on above: Result Comment: Test ing performed on [employer] analyzer using enzymatic creatinine methodology. Performed By: #### C BC, GFR, MORPH, RFP, DIFF #### [place] [id number] Electrolyte Balance 11.0 mEq/L Normal 4.0-15.0 [facility] Comment on above: Performed By: #### C BC, GFR, MORPH, RFP, DIFF #### [place] [id number] Glucose [Mass/Vol] 147 mg/dL High 82-115 [facility] Comment on above: Performed By: #### C BC, GFR, MORPH, RFP, DIFF #### [place] [address] Potassium [Moles/Vol] 4.4 mmol/L Normal 3.5-5.0 [facility] Comment on above: Performed By: #### C BC, GFR, MORPH, RFP, DIFF #### [place] [id number] Sodium [Moles/Vol] 137 mmol/L Normal 136-145 [facility] Comment on above: Performed By: #### C BC, GFR, MORPH, RFP, DIFF #### [place] [id number] Urea nitrogen [Mass/Vol] 49.0 mg/dL High 8.0-22.0 [facility] Comment on above: Performed By: #### C BC, GFR, MORPH, RFP, DIFF #### [address] [address] .Auto Diffon 04-16-2025 Basophil, Absolute 0.2 10 3/mcL Normal 0.0-0.3 [facility] Comment on above: Performed By: #### M G, RFP, BMP, GFR #### [address] [address] Basophils/100 WBC (Bld) 2.3 % Normal 0.0-2.5 [facility] Comment on above: Performed By: #### M G, RFP, BMP, GFR #### [address] [address] Eosinophil, Absolute 0.2 10 3/mcL Normal 0.0-0.7 [facility] Comment on above: Performed By: #### M G, RFP, BMP, GFR #### [address] [address] Eosinophils/100 WBC (Bld) 2.1 % Normal 0.0-6.0 [facility] Comment on above: Performed By: #### M G, RFP, BMP, GFR #### [address] [address] Lymphocyte, Absolute 1.3 10 3/mcL Normal 0.9-4.3 [facility] Comment on above: Performed By: #### M G, RFP, BMP, GFR #### [address] [address] Lymphocytes/100 WBC (Bld) 17.1 % Low 20.0-40.0 [facility] Comment on above: Performed By: #### M G, RFP, BMP, GFR #### [address] [address] Monocyte, Absolute 0.8 10 3/mcL Normal 0.1-1.4 [facility] Comment on above: Performed By: #### M G, RFP, BMP, GFR #### [address] [address] Monocytes/100 WBC (Bld) 10.7 % Normal 2.0-13.0 [facility] Comment on above: Performed By: #### M G, RFP, BMP, GFR #### [address] [address] Neutrophils/100 WBC (Bld) 67.8 % Normal 50.0-75.0 [facility] Comment on above: Performed By: #### M G, RFP, BMP, GFR #### [address] [address] .GFRon 04-16-2025 Estimated Glomerular Filtration Rate 9 ml/min/1.73sqm [facility] Comment on above: Result Comment: Stages [...] #### M G, RFP, BMP, GFR #### [place] [address] .Morphon 04-16-2025 Anisocytosis Ql (Bld) 2+ Normal [facility] Comment on above: Performed By: #### M G, RFP, BMP, GFR #### [place] [address] Microcytosis 2+ [facility] Comment on above: Performed By: #### M G, RFP, BMP, GFR #### [place] [address] Ovalocytes 1+ [facility] Comment on above: Performed By: #### M G, RFP, BMP, GFR #### [place] [address] Platelet Estimate Normal [facility] Comment on above: Performed By: #### M G, RFP, BMP, GFR #### [place] [address] Poik 1+ [facility] Comment on above: Performed By: #### M G, RFP, BMP, GFR #### [place] [address] Polychrom 1+ [facility] Comment on above: Performed By: #### M G, RFP, BMP, GFR #### [address] [address] .NEUABSon 04-16-2025 Neutrophil, Absolute 5.2 10 3/mcL Normal 2.3-8.1 [facility] Comment on above: Performed By: #### M G, RFP, BMP, GFR #### [address] [address] BMPon 04-16-2025 BUN/Creatinine Ratio 16.9 ratio Normal 10.0-22.0 [facility] Comment on above: Performed By: #### M G, RFP, BMP, GFR #### [address] [address] Calcium [Mass/Vol] 9.9 mg/dL Normal 8.7-10.4 [facility] Comment on above: Performed By: #### Iain G, RFP, BMP, GFR #### [place] [address] Chloride [Moles/Vol] 97 mmol/L Low 98-110 [facility] Comment on above: Performed By: #### M G, RFP, BMP, GFR #### [address] [address] CO2 [Moles/Vol] 29 mmol/L Normal 22-32 [facility] Comment on above: Performed By: #### M G, RFP, BMP, GFR #### [address] [address] Creatinine [Mass/Vol] 4.92 mg/dL High 0.50-1.20 [facility] Comment on above: Result Comment: Test ing performed on [employer] analyzer using enzymatic creatinine methodology. Performed By: #### M G, RFP, BMP, GFR #### [address] [address] Electrolyte Balance 10.0 mEq/L Normal 4.0-15.0 [facility] Comment on above: Performed By: #### M G, RFP, BMP, GFR #### [address] [address] Glucose [Mass/Vol] 154 mg/dL High 82-115 [facility] Comment on above: Performed By: #### M G, RFP, BMP, GFR #### [address] [address] Potassium [Moles/Vol] 4.4 mmol/L Normal 3.5-5.0 [facility] Comment on above: Performed By: #### M G, RFP, BMP, GFR #### [address] [address] Sodium [Moles/Vol] 136 mmol/L Normal 136-145 [facility] Comment on above: Performed By: #### M G, RFP, BMP, GFR #### [address] [address] Urea nitrogen [Mass/Vol] 83.0 mg/dL High 8.0-22.0 [facility] Comment on above: Performed By: #### M G, RFP, BMP, GFR #### [address] [address] CBCon 04-16-2025 Platelet 286 10 3/mcL Normal 150-450 [facility] Comment on above: Performed By: #### M G, RFP, BMP, GFR #### [address] [address] Platelet mean volume (Bld) [Entitic vol] 7.3 fL Normal 6.6-10.5 [facility] Comment on above: Performed By: #### M G, RFP, BMP, GFR #### [address] [address] Erythrocyte distribution width (RBC) [Ratio] 23.8 % High 11.5-15.5 [facility] Comment on above: Performed By: #### M G, RFP, BMP, GFR #### [address] [address] Hematocrit (Bld) [Volume fraction] 28.0 % Low 34.0-46.0 [facility] Comment on above: Performed By: #### M G, RFP, BMP, GFR #### [address] [address] Hgb 8.9 G/dL Low 12.0-16.0 [facility] Comment on above: Performed By: #### M G, RFP, BMP, GFR #### [address] [address] MCH (RBC) [Entitic mass] 23.3 pg Low 27.0-33.0 [facility] Comment on above: Performed By: #### M G, RFP, BMP, GFR #### [address] [address] MCHC 31.9 G/dL Low 32.0-36.0 [facility] Comment on above: Performed By: #### M G, RFP, BMP, GFR #### [address] [address] MCV (RBC) [Entitic vol] 73.2 fL Low 80.0-99.0 [facility] Comment on above: Performed By: #### M G, RFP, BMP, GFR #### [address] [address] RBC 3.83 10 6/mcL Low 4.10-5.30 [facility] Comment on above: Performed By: #### M G, RFP, BMP, GFR #### [address] [address] WBC 7.6 10 3/mcL Normal 4.5-10.8 [facility] Comment on above: Performed By: #### M G, RFP, BMP, GFR #### [address] [address] XR CHEST 1 VIEWon 04-16-2025 XR CHEST [...] 04/16/2025 8:28:15 AM Ordering Provider: ELKE MARQUEZ [facility] .GFRon 04-13-2025 Estimated Glomerular Filtration Rate 12 ml/min/1.73sqm [facility] Comment on above: Result Comment: Stages [...] C BC, GFR, MORPH, RFP, DIFF #### [address] [address] .Manual Diffon 04-13-2025 Bands 1.0 % Normal 0.0-5.0 [facility] Comment on above: Performed By: #### C BC, GFR, MORPH, RFP, DIFF #### [address] [address] Basophil %, Manual 0.0 % Normal 0.0-2.5 [facility] Comment on above: Performed By: #### C BC, GFR, MORPH, RFP, DIFF #### [address] [address] Basophil, Abs Manual 0.0 10 3/mcL Normal 0.0-0.3 [facility] Comment on above: Performed By: #### C BC, GFR, MORPH, RFP, DIFF #### [place] [id number] [address] [place] [id number] Eosinophil %, Manual 1.0 % Normal 0.0-6.0 [facility] Comment on above: Performed By: #### C BC, GFR, MORPH, RFP, DIFF #### [facility] [address] [place] [address] Eosinophil, Abs Manual 0.1 10 3/mcL Normal 0.0-0.7 [facility] Comment on above: Performed By: #### C BC, GFR, MORPH, RFP, DIFF #### [facility] [address] [place] [address] Lymphocyte %, Manual 8.0 % Low 20.0-40.0 [facility] Comment on above: Performed By: #### C BC, GFR, MORPH, RFP, DIFF #### [address] [address] Lymphocyte, Abs Manual 0.6 10 3/mcL Low 0.9-4.3 [facility] Comment on above: Performed By: #### C BC, GFR, MORPH, RFP, DIFF #### [address] [address] Monocyte %, Manual 9.0 % Normal 2.0-13.0 [facility] Comment on above: Performed By: #### C BC, GFR, MORPH, RFP, DIFF #### [address] [address] Monocyte, Abs Manual 0.7 10 3/mcL Normal 0.1-1.4 [facility] Comment on above: Performed By: #### C BC, GFR, MORPH, RFP, DIFF #### [address] [address] Neutrophil %, Manual 81.0 % High 50.0-75.0 [facility] Comment on above: Performed By: #### C BC, GFR, MORPH, RFP, DIFF #### [place] [id number] [place] [address] Neutrophil, Abs Manual 6.3 10 3/mcL Normal 2.3-8.1 [facility] Comment on above: Performed By: #### C BC, GFR, MORPH, RFP, DIFF #### [place] [address] Nucleated RBC 0.0 /100 WBC [facility]IN Comment on above: Performed By: #### C BC, GFR, MORPH, RFP, DIFF #### [place] [address] .Morphon 04-13-2025 Anisocytosis Ql (Bld) 1+ Normal [facility] Comment on above: Performed By: #### C BC, GFR, MORPH, RFP, DIFF #### [place] [address] Hypochrom 1+ [facility] Comment on above: Performed By: #### C BC, GFR, MORPH, RFP, DIFF #### [place] [address] Large Platelets Few [facility] Comment on above: Performed By: #### C BC, GFR, MORPH, RFP, DIFF #### [place] [address] Microcytosis 1+ [facility] Comment on above: Performed By: #### C BC, GFR, MORPH, RFP, DIFF #### [place] [address] Ovalocytes 1+ [facility] Comment on above: Performed By: #### C BC, GFR, MORPH, RFP, DIFF #### [place] [address] Platelet Estimate Normal [facility] Comment on above: Performed By: #### C BC, GFR, MORPH, RFP, DIFF #### [place] [address] Poik 1+ [facility] Comment on above: Performed By: #### C BC, GFR, MORPH, RFP, DIFF #### [place] [address] Polychrom 1+ [facility] Comment on above: Performed By: #### C BC, GFR, MORPH, RFP, DIFF #### [place] [address] Target Cell 1+ [facility] Comment on above: Performed By: #### C BC, GFR, MORPH, RFP, DIFF #### [address] [address] BMPon 04-13-2025 BUN/Creatinine Ratio 15.1 ratio Normal 10.0-22.0 [facility] Comment on above: Performed By: #### C BC, GFR, MORPH, RFP, DIFF #### [address] [address] Calcium [Mass/Vol] 9.6 mg/dL Normal 8.7-10.4 [facility] Comment on above: Performed By: #### C BC, GFR, MORPH, RFP, DIFF #### [address] [address] Chloride [Moles/Vol] 98 mmol/L Normal 98-110 [facility] Comment on above: Performed By: #### C BC, GFR, MORPH, RFP, DIFF #### [place] [phone] CO2 [Moles/Vol] 30 mmol/L Normal 22-32 [facility] Comment on above: Performed By: #### C BC, GFR, MORPH, RFP, DIFF #### [address] [address] Creatinine [Mass/Vol] 3.78 mg/dL High 0.50-1.20 [facility] Comment on above: Result Comment: Test ing performed on [employer] analyzer using enzymatic creatinine methodology. Performed By: #### C BC, GFR, MORPH, RFP, DIFF #### [address] [address] Electrolyte Balance 11.0 mEq/L Normal 4.0-15.0 [facility] Comment on above: Performed By: #### C BC, GFR, MORPH, RFP, DIFF #### [address] [address] Glucose [Mass/Vol] 134 mg/dL High 82-115 [facility] Comment on above: Performed By: #### C BC, GFR, MORPH, RFP, DIFF #### [place] [phone] Potassium [Moles/Vol] 4.0 mmol/L Normal 3.5-5.0 [facility] Comment on above: Performed By: #### C BC, GFR, MORPH, RFP, DIFF #### [place] [phone] Sodium [Moles/Vol] 139 mmol/L Normal 136-145 [facility] Comment on above: Performed By: #### C BC, GFR, MORPH, RFP, DIFF #### [place] [address] Urea nitrogen [Mass/Vol] 57.0 mg/dL High 8.0-22.0 [facility] Comment on above: Performed By: #### C BC, GFR, MORPH, RFP, DIFF #### [place] [address] CBCon 04-13-2025 Erythrocyte distribution width (RBC) [Ratio] 24.5 % High 11.5-15.5 [facility] Comment on above: Performed By: #### C BC, GFR, MORPH, RFP, DIFF #### [place] [address] Hematocrit (Bld) [Volume fraction] 28.8 % Low 34.0-46.0 [facility] Comment on above: Performed By: #### C BC, GFR, MORPH, RFP, DIFF #### [place] [address] Hgb 9.3 G/dL Low 12.0-16.0 [facility] Comment on above: Performed By: #### C BC, GFR, MORPH, RFP, DIFF #### [place] [address] MCH (RBC) [Entitic mass] 23.9 pg Low 27.0-33.0 [facility] Comment on above: Performed By: #### C BC, GFR, MORPH, RFP, DIFF #### [place] [phone] MCHC 32.1 G/dL Normal 32.0-36.0 [facility] Comment on above: Performed By: #### C BC, GFR, MORPH, RFP, DIFF #### [place] [address] MCV (RBC) [Entitic vol] 74.3 fL Low 80.0-99.0 [facility] Comment on above: Performed By: #### C BC, GFR, MORPH, RFP, DIFF #### [place] [address] Platelet 272 10 3/mcL Normal 150-450 [facility] Comment on above: Performed By: #### C BC, GFR, MORPH, RFP, DIFF #### [place] [address] Platelet mean volume (Bld) [Entitic vol] 7.6 fL Normal 6.6-10.5 [facility] Comment on above: Performed By: #### C BC, GFR, MORPH, RFP, DIFF #### [place] [address] RBC 3.87 10 6/mcL Low 4.10-5.30 [facility] Comment on above: Performed By: #### C BC, GFR, MORPH, RFP, DIFF #### [place] [address] WBC 7.8 10 3/mcL Normal 4.5-10.8 [facility] Comment on above: Performed By: #### C BC, GFR, MORPH, RFP, DIFF #### [place] [address] HBSABon 04-13-2025 Hep B Surf Ab 3.1 mIU/mL Low >=10.0 [facility] Comment on above: Result Comment: [...] C BC, GFR, MORPH, RFP, DIFF #### [place] [address] HBSAGon 04-13-2025 Hep B Surf Ag Non-Reactive Normal Non-Reactive [facility] Comment on above: Performed By: #### C BC, GFR, MORPH, RFP, DIFF #### [place] [phone] HBcTon 04-13-2025 Hepatitis B Core Total Non-Reactive Normal Non-Reactiv e [facility] Comment on above: Performed By: #### M G, RFP, BMP, GFR #### [place] [address] Hepatitis B Core Total Interp See Interp [facility] Comment on above: Result Comment: Clinical Interpretation: Samples with a value of <0.50 are considered nonreactive for total antibodies to Hepatitis B Core Antigen. Performed By: #### M G, RFP, BMP, GFR #### [place] [address] PHOSon 04-13-2025 Phosphate [Mass/Vol] 3.1 mg/dL Normal 2.4-5.1 [facility] Comment on above: Performed By: #### C BC, GFR, MORPH, RFP, DIFF #### [place] [address] .GFRon 04-10-2025 Estimated Glomerular Filtration Rate 19 ml/min/1.73sqm Normal [facility] Comment on above: Result Comment: [...] C BC, GFR, MORPH, RFP, DIFF #### [place] [address] BMPon 04-10-2025 BUN/Creatinine Ratio 11.9 ratio Normal 10.0-22.0 [facility] Comment on above: Performed By: #### C BC, GFR, MORPH, RFP, DIFF #### [address] [address] Calcium [Mass/Vol] 9.0 mg/dL Normal 8.7-10.4 [facility] Comment on above: Performed By: #### C BC, GFR, MORPH, RFP, DIFF #### [address] [address] Chloride [Moles/Vol] 98 mmol/L Normal 98-110 [facility] Comment on above: Performed By: #### C BC, GFR, MORPH, RFP, DIFF #### [address] [address] CO2 [Moles/Vol] 31 mmol/L Normal 22-32 [facility] Comment on above: Performed By: #### C BC, GFR, MORPH, RFP, DIFF #### [address] [address] Creatinine [Mass/Vol] 2.52 mg/dL High 0.50-1.20 [facility] Comment on above: Result Comment: Test ing performed on [employer] analyzer using enzymatic creatinine methodology. Performed By: #### C BC, GFR, MORPH, RFP, DIFF #### [address] [address] Electrolyte Balance 9.0 mEq/L Normal 4.0-15.0 [facility] Comment on above: Performed By: #### C BC, GFR, MORPH, RFP, DIFF #### [address] [address] Glucose [Mass/Vol] 153 mg/dL High 82-115 [facility] Comment on above: Performed By: #### C BC, GFR, MORPH, RFP, DIFF #### [address] [address] Potassium [Moles/Vol] 4.2 mmol/L Normal 3.5-5.0 [facility] Comment on above: Performed By: #### C BC, GFR, MORPH, RFP, DIFF #### [address] [address] Sodium [Moles/Vol] 138 mmol/L Normal 136-145 [facility] Comment on above: Performed By: #### C BC, GFR, MORPH, RFP, DIFF #### [address] [address] Urea nitrogen [Mass/Vol] 30.0 mg/dL High 8.0-22.0 [facility] Comment on above: Performed By: #### C BC, GFR, MORPH, RFP, DIFF #### [address] [address] TROPHSon 04-10-2025 High Sensitivity Troponin I 17 ng/L Normal 0-34 [facility] Comment on above: Result Comment: High Sensitive Troponin I Reference Ranges: Female: 0-34 ng/L Male: 0-54 ng/L Testing performed on [employer] IM analyzer using direct chemiluminescent technology. Performed By: #### C BC, GFR, MORPH, RFP, DIFF #### [place] [address] .Auto Diffon 04-09-2025 Basophil, Absolute 0.1 10 3/mcL Normal 0.0-0.3 [facility] Comment on above: Performed By: #### M G, RFP, BMP, GFR #### [address] [address] Basophils/100 WBC (Bld) 0.9 % Normal 0.0-2.5 [facility] Comment on above: Performed By: #### M G, RFP, BMP, GFR #### [address] [address] Eosinophil, Absolute 0.2 10 3/mcL Normal 0.0-0.7 [facility] Comment on above: Performed By: #### M G, RFP, BMP, GFR #### [address] [address] Eosinophils/100 WBC (Bld) 3.2 % Normal 0.0-6.0 [facility] Comment on above: Performed By: #### M G, RFP, BMP, GFR #### [facility] [address] [place] [address] Lymphocyte, Absolute 0.6 10 3/mcL Low 0.9-4.3 [facility] Comment on above: Performed By: #### M G, RFP, BMP, GFR #### [facility] [address] [place] [address] Lymphocytes/100 WBC (Bld) 11.4 % Low 20.0-40.0 [facility] Comment on above: Performed By: #### M G, RFP, BMP, GFR #### [facility] [address] [place] [address] Monocyte, Absolute 0.9 10 3/mcL Normal 0.1-1.4 [facility] Comment on above: Performed By: #### M G, RFP, BMP, GFR #### [facility] [address] [place] [address] Monocytes/100 WBC (Bld) 16.2 % High 2.0-13.0 [facility] Comment on above: Performed By: #### M G, RFP, BMP, GFR #### [facility] [address] [place] [address] Neutrophils/100 WBC (Bld) 68.3 % Normal 50.0-75.0 [facility] Comment on above: Performed By: #### M G, RFP, BMP, GFR #### [facility] [address] [place] [address] .GFRon 04-09-2025 Estimated Glomerular Filtration Rate 11 ml/min/1.73sqm Normal [facility] Comment on above: Result Comment: [...] #### M G, RFP, BMP, GFR #### [place] [address] .Morphon 04-09-2025 Anisocytosis Ql (Bld) 2+ Normal [facility] Comment on above: Performed By: #### M G, RFP, BMP, GFR #### [place] [address] Microcytosis 1+ Normal [facility] Comment on above: Performed By: #### M G, RFP, BMP, GFR #### [place] [address] Ovalocytes 1+ Normal [facility] Comment on above: Performed By: #### M G, RFP, BMP, GFR #### [place] [address] Platelet Estimate Normal [facility] Comment on above: Performed By: #### M G, RFP, BMP, GFR #### [place] [address] Poik 1+ Normal [facility] Comment on above: Performed By: #### M G, RFP, BMP, GFR #### [place] [address] .NEUABSon 04-09-2025 Neutrophil, Absolute 3.9 10 3/mcL Normal 2.3-8.1 [facility] Comment on above: Performed By: #### M G, RFP, BMP, GFR #### [place] [address] CBCon 04-09-2025 Erythrocyte distribution width (RBC) [Ratio] 25.5 % High 11.5-15.5 [facility] Comment on above: Performed By: #### M G, RFP, BMP, GFR #### [place] [address] Hematocrit (Bld) [Volume fraction] 27.0 % Low 34.0-46.0 [facility] Comment on above: Performed By: #### M G, RFP, BMP, GFR #### [place] [address] Hgb 8.5 G/dL Low 12.0-16.0 [facility] Comment on above: Performed By: #### M G, RFP, BMP, GFR #### [place] [address] MCH (RBC) [Entitic mass] 23.7 pg Low 27.0-33.0 [facility] Comment on above: Performed By: #### M G, RFP, BMP, GFR #### [place] [address] MCHC 31.6 G/dL Low 32.0-36.0 [facility] Comment on above: Performed By: #### M G, RFP, BMP, GFR #### [place] [address] MCV (RBC) [Entitic vol] 75.1 fL Low 80.0-99.0 [facility] Comment on above: Performed By: #### M G, RFP, BMP, GFR #### [place] [address] Platelet 261 10 3/mcL Normal 150-450 [facility] Comment on above: Performed By: #### M G, RFP, BMP, GFR #### [place] [address] Platelet mean volume (Bld) [Entitic vol] 7.3 fL Normal 6.6-10.5 [facility] Comment on above: Performed By: #### M G, RFP, BMP, GFR #### [place] [address] RBC 3.60 10 6/mcL Low 4.10-5.30 [facility] Comment on above: Performed By: #### M G, RFP, BMP, GFR #### [place] [address] WBC 5.7 10 3/mcL Normal 4.5-10.8 [facility] Comment on above: Performed By: #### M G, RFP, BMP, GFR #### [place] [address] RFPon 04-09-2025 Albumin Level 2.6 G/dL Low 3.2-4.8 [facility] Comment on above: Performed By: #### M G, RFP, BMP, GFR #### [address] [address] BUN/Creatinine Ratio 15.0 ratio Normal 10.0-22.0 [facility] Comment on above: Performed By: #### M G, RFP, BMP, GFR #### [address] [address] Calcium [Mass/Vol] 9.3 mg/dL Normal 8.7-10.4 [facility] Comment on above: Performed By: #### M G, RFP, BMP, GFR #### [address] [address] Chloride [Moles/Vol] 95 mmol/L Low 98-110 [facility] Comment on above: Performed By: #### M G, RFP, BMP, GFR #### [address] [address] CO2 [Moles/Vol] 28 mmol/L Normal 22-32 [facility] Comment on above: Performed By: #### M G, RFP, BMP, GFR #### [address] [address] Creatinine [Mass/Vol] 4.07 mg/dL High 0.50-1.20 [facility] Comment on above: Result Comment: Test ing performed on [employer] analyzer using enzymatic creatinine methodology. Performed By: #### M G, RFP, BMP, GFR #### [address] [address] Electrolyte Balance 15.0 mEq/L Normal 4.0-15.0 [facility] Comment on above: Performed By: #### M G, RFP, BMP, GFR #### [address] [address] Glucose [Mass/Vol] 155 mg/dL High 82-115 [facility] Comment on above: Performed By: #### M G, RFP, BMP, GFR #### [address] [address] Phosphate [Mass/Vol] 4.9 mg/dL Normal 2.4-5.1 [facility] Comment on above: Performed By: #### M G, RFP, BMP, GFR #### [address] [address] Potassium [Moles/Vol] 4.5 mmol/L Normal 3.5-5.0 [facility] Comment on above: Performed By: #### M G, RFP, BMP, GFR #### [address] [address] Sodium [Moles/Vol] 138 mmol/L Normal 136-145 [facility] Comment on above: Performed By: #### M G, RFP, BMP, GFR #### [address] [address] Urea nitrogen [Mass/Vol] 61.0 mg/dL High 8.0-22.0 [facility] Comment on above: Performed By: #### M G, RFP, BMP, GFR #### [address] [address] .Auto Diffon 04-06-2025 Basophil, Absolute 0.0 10 3/mcL Normal 0.0-0.3 [facility] Comment on above: Performed By: #### C BC, GFR, MORPH, RFP, DIFF #### [address] [address] Basophils/100 WBC (Bld) 0.8 % Normal 0.0-2.5 [facility] Comment on above: Performed By: #### C BC, GFR, MORPH, RFP, DIFF #### [address] [address] Eosinophil, Absolute 0.2 10 3/mcL Normal 0.0-0.7 [facility] Comment on above: Performed By: #### C BC, GFR, MORPH, RFP, DIFF #### [address] [address] Eosinophils/100 WBC (Bld) 3.1 % Normal 0.0-6.0 [facility] Comment on above: Performed By: #### C BC, GFR, MORPH, RFP, DIFF #### [address] [address] Lymphocyte, Absolute 0.7 10 3/mcL Low 0.9-4.3 [facility] Comment on above: Performed By: #### C BC, GFR, MORPH, RFP, DIFF #### [facility] [address] [place] [address] Lymphocytes/100 WBC (Bld) 13.8 % Low 20.0-40.0 [facility] Comment on above: Performed By: #### C BC, GFR, MORPH, RFP, DIFF #### [facility] [address] [place] [address] Monocyte, Absolute 0.7 10 3/mcL Normal 0.1-1.4 [facility] Comment on above: Performed By: #### C BC, GFR, MORPH, RFP, DIFF #### [address] [address] Monocytes/100 WBC (Bld) 14.1 % High 2.0-13.0 [facility] Comment on above: Performed By: #### C BC, GFR, MORPH, RFP, DIFF #### [address] [address] Neutrophils/100 WBC (Bld) 68.2 % Normal 50.0-75.0 [facility] Comment on above: Performed By: #### C BC, GFR, MORPH, RFP, DIFF #### [address] [address] .GFRon 04-06-2025 Estimated Glomerular Filtration Rate 15 ml/min/1.73sqm Normal [facility] Comment on above: Result Comment: [...] C BC, GFR, MORPH, RFP, DIFF #### [place] [address] .Morphon 04-06-2025 Anisocytosis Ql (Bld) 2+ Normal [facility] Comment on above: Performed By: #### C BC, GFR, MORPH, RFP, DIFF #### [place] [address] Microcytosis 2+ Normal [facility] Comment on above: Performed By: #### C BC, GFR, MORPH, RFP, DIFF #### [place] [address] Ovalocytes 1+ Normal [facility] Comment on above: Performed By: #### C BC, GFR, MORPH, RFP, DIFF #### [place] [address] Platelet Estimate Normal [facility] Comment on above: Performed By: #### C BC, GFR, MORPH, RFP, DIFF #### [place] [address] Poik 1+ Normal [facility] Comment on above: Performed By: #### C BC, GFR, MORPH, RFP, DIFF #### [place] [address] Polychrom 1+ Normal [facility] Comment on above: Performed By: #### C BC, GFR, MORPH, RFP, DIFF #### [place] [address] .NEUABSon 04-06-2025 Neutrophil, Absolute 3.6 10 3/mcL Normal 2.3-8.1 [facility] Comment on above: Performed By: #### C BC, GFR, MORPH, RFP, DIFF #### [place] [address] CBCon 04-06-2025 Erythrocyte distribution width (RBC) [Ratio] 26.5 % High 11.5-15.5 [facility] Comment on above: Performed By: #### C BC, GFR, MORPH, RFP, DIFF #### [facility] [address] [place], [place] [address] Hematocrit (Bld) [Volume fraction] 25.5 % Low 34.0-46.0 [facility] Comment on above: Performed By: #### C BC, GFR, MORPH, RFP, DIFF #### [place] [address] Hgb 8.0 G/dL Low 12.0-16.0 [facility] Comment on above: Performed By: #### C BC, GFR, MORPH, RFP, DIFF #### [place] [address] MCH (RBC) [Entitic mass] 23.8 pg Low 27.0-33.0 [facility] Comment on above: Performed By: #### C BC, GFR, MORPH, RFP, DIFF #### [place] [address] MCHC 31.3 G/dL Low 32.0-36.0 [facility] Comment on above: Performed By: #### C BC, GFR, MORPH, RFP, DIFF #### [place] [address] MCV (RBC) [Entitic vol] 75.8 fL Low 80.0-99.0 [facility] Comment on above: Performed By: #### C BC, GFR, MORPH, RFP, DIFF #### [place] [address] Platelet 218 10 3/mcL Normal 150-450 [facility] Comment on above: Performed By: #### C BC, GFR, MORPH, RFP, DIFF #### [place] [address] Platelet mean volume (Bld) [Entitic vol] 7.4 fL Normal 6.6-10.5 [facility] Comment on above: Performed By: #### C BC, GFR, MORPH, RFP, DIFF #### [place] [address] RBC 3.36 10 6/mcL Low 4.10-5.30 [facility] Comment on above: Performed By: #### C BC, GFR, MORPH, RFP, DIFF #### [place] [address] WBC 5.3 10 3/mcL Normal 4.5-10.8 [facility] Comment on above: Performed By: #### C BC, GFR, MORPH, RFP, DIFF #### [address] [address] RFPon 04-06-2025 Albumin Level 2.4 G/dL Low 3.2-4.8 [facility] Comment on above: Performed By: #### C BC, GFR, MORPH, RFP, DIFF #### [place] [id number] BUN/Creatinine Ratio 12.8 ratio Normal 10.0-22.0 [facility] Comment on above: Performed By: #### C BC, GFR, MORPH, RFP, DIFF #### [address] [address] Calcium [Mass/Vol] 9.1 mg/dL Normal 8.7-10.4 [facility] Comment on above: Performed By: #### C BC, GFR, MORPH, RFP, DIFF #### [place] [address] Chloride [Moles/Vol] 97 mmol/L Low 98-110 [facility] Comment on above: Performed By: #### C BC, GFR, MORPH, RFP, DIFF #### [place] [id number] CO2 [Moles/Vol] 27 mmol/L Normal 22-32 [facility] Comment on above: Performed By: #### C BC, GFR, MORPH, RFP, DIFF #### [address] [address] Creatinine [Mass/Vol] 3.04 mg/dL High 0.50-1.20 [facility] Comment on above: Result Comment: Test ing performed on [employer] analyzer using enzymatic creatinine methodology. Performed By: #### C BC, GFR, MORPH, RFP, DIFF #### [address] [address] Electrolyte Balance 13.0 mEq/L Normal 4.0-15.0 [facility] Comment on above: Performed By: #### C BC, GFR, MORPH, RFP, DIFF #### [address] [address] Glucose [Mass/Vol] 140 mg/dL High 82-115 [facility] Comment on above: Performed By: #### C BC, GFR, MORPH, RFP, DIFF #### [address] [address] Phosphate [Mass/Vol] 5.6 mg/dL High 2.4-5.1 [facility] Comment on above: Performed By: #### C BC, GFR, MORPH, RFP, DIFF #### [address] [address] Potassium [Moles/Vol] 4.3 mmol/L Normal 3.5-5.0 [facility] Comment on above: Performed By: #### C BC, GFR, MORPH, RFP, DIFF #### [address] [address] Sodium [Moles/Vol] 137 mmol/L Normal 136-145 [facility] Comment on above: Performed By: #### C BC, GFR, MORPH, RFP, DIFF #### [address] [address] Urea nitrogen [Mass/Vol] 39.0 mg/dL High 8.0-22.0 [facility] Comment on above: Performed By: #### C BC, GFR, MORPH, RFP, DIFF #### [address] [address] XR CHEST 1 VIEWon 04-05-2025 XR CHEST [...] 04/05/2025 11:06:53 AM Ordering Provider: YANY SALDANA [facility] [place] [facility] .GFRon 04-04-2025 Estimated Glomerular Filtration Rate 14 ml/min/1.73sqm [facility] [place] [facility] Comment on above: Result Comment: Stages [...] C BC, GFR, MORPH, RFP, DIFF #### [address] [address] RFPon 04-04-2025 Albumin Level 2.2 G/dL Low 3.2-4.8 [facility] Comment on above: Performed By: #### C BC, GFR, MORPH, RFP, DIFF #### [address] [address] BUN/Creatinine Ratio 16.4 ratio Normal 10.0-22.0 [facility] Comment on above: Performed By: #### C BC, GFR, MORPH, RFP, DIFF #### [address] [address] Calcium [Mass/Vol] 8.8 mg/dL Normal 8.7-10.4 [facility] Comment on above: Performed By: #### C BC, GFR, MORPH, RFP, DIFF #### [address] [address] Chloride [Moles/Vol] 97 mmol/L Low 98-110 [facility] Comment on above: Performed By: #### C BC, GFR, MORPH, RFP, DIFF #### [address] [address] CO2 [Moles/Vol] 26 mmol/L Normal 22-32 [facility] Comment on above: Performed By: #### C BC, GFR, MORPH, RFP, DIFF #### [address] [address] Creatinine [Mass/Vol] 3.24 mg/dL High 0.50-1.20 [facility] Comment on above: Result Comment: Test ing performed on [employer] analyzer using enzymatic creatinine methodology. Performed By: #### C BC, GFR, MORPH, RFP, DIFF #### [address] [address] Electrolyte Balance 14.0 mEq/L Normal 4.0-15.0 [facility] Comment on above: Performed By: #### C BC, GFR, MORPH, RFP, DIFF #### [address] [address] Glucose [Mass/Vol] 141 mg/dL High 82-115 [facility] Comment on above: Performed By: #### C BC, GFR, MORPH, RFP, DIFF #### [address] [address] Phosphate [Mass/Vol] 6.9 mg/dL High 2.4-5.1 [facility] Comment on above: Performed By: #### C BC, GFR, MORPH, RFP, DIFF #### [address] [address] Potassium [Moles/Vol] 4.9 mmol/L Normal 3.5-5.0 [facility] Comment on above: Performed By: #### C BC, GFR, MORPH, RFP, DIFF #### [address] [address] Sodium [Moles/Vol] 137 mmol/L Normal 136-145 [facility] Comment on above: Performed By: #### C BC, GFR, MORPH, RFP, DIFF #### [address] [address] Urea nitrogen [Mass/Vol] 53.0 mg/dL High 8.0-22.0 [facility] Comment on above: Performed By: #### C BC, GFR, MORPH, RFP, DIFF #### [address] [address] .Auto Diffon 04-02-2025 Basophil, Absolute 0.1 10 3/mcL Normal 0.0-0.3 [facility] Comment on above: Performed By: #### G FR, RFP #### [address] [address] Basophils/100 WBC (Bld) 1.0 % Normal 0.0-2.5 [facility] Comment on above: Performed By: #### G FR, RFP #### [address] [address] Eosinophil, Absolute 0.2 10 3/mcL Normal 0.0-0.7 [facility] Comment on above: Performed By: #### G FR, RFP #### [address] [address] Eosinophils/100 WBC (Bld) 3.8 % Normal 0.0-6.0 [facility] Comment on above: Performed By: #### G FR, RFP #### [address] [address] Lymphocyte, Absolute 0.8 10 3/mcL Low 0.9-4.3 [facility] Comment on above: Performed By: #### G FR, RFP #### [address] [address] Lymphocytes/100 WBC (Bld) 13.5 % Low 20.0-40.0 [facility] Comment on above: Performed By: #### G FR, RFP #### [address] [address] Monocyte, Absolute 0.7 10 3/mcL Normal 0.1-1.4 [facility] Comment on above: Performed By: #### G FR, RFP #### [address] [address] Monocytes/100 WBC (Bld) 11.7 % Normal 2.0-13.0 [facility] Comment on above: Performed By: #### G FR, RFP #### [address] [address] Neutrophils/100 WBC (Bld) 70.0 % Normal 50.0-75.0 [facility] Comment on above: Performed By: #### G FR, RFP #### [address] [address] .GFRon 04-02-2025 Estimated Glomerular Filtration Rate 13 ml/min/1.73sqm [facility] [place] [facility] Comment on above: Result Comment: Stages [...] C BC, GFR, MORPH, RFP, DIFF #### [address] [address] .Morphon 04-02-2025 Anisocytosis Ql (Bld) 2+ Normal [facility] Comment on above: Performed By: #### G FR, RFP #### [address] [address] Microcytosis 2+ Normal [facility] Comment on above: Performed By: #### G FR, RFP #### [address] [address] Ovalocytes 1+ Normal [facility] Comment on above: Performed By: #### G FR, RFP #### [address] [address] Platelet Estimate Normal Normal [facility] Comment on above: Performed By: #### G FR, RFP #### [place] [address] Poik 1+ Normal [facility] Comment on above: Performed By: #### G FR, RFP #### [place] [address] .NEUABSon 04-02-2025 Neutrophil, Absolute 4.2 10 3/mcL Normal 2.3-8.1 [facility] Comment on above: Performed By: #### G FR, RFP #### [place] [address] CBCon 04-02-2025 Erythrocyte distribution width (RBC) [Ratio] 27.5 % High 11.5-15.5 [facility] Comment on above: Performed By: #### G FR, RFP #### [place] [address] Hematocrit (Bld) [Volume fraction] 24.2 % Low 34.0-46.0 [facility] Comment on above: Performed By: #### G FR, RFP #### [place] [address] Hgb 7.8 G/dL Low 12.0-16.0 [facility] Comment on above: Performed By: #### G FR, RFP #### [place] [address] MCH (RBC) [Entitic mass] 24.0 pg Low 27.0-33.0 [facility] Comment on above: Performed By: #### G FR, RFP #### [place] [address] MCHC 32.0 G/dL Normal 32.0-36.0 [facility] Comment on above: Performed By: #### G FR, RFP #### [place] [address] MCV (RBC) [Entitic vol] 74.9 fL Low 80.0-99.0 [facility] Comment on above: Performed By: #### G FR, RFP #### [address] [address] Platelet 242 10 3/mcL Normal 150-450 [facility] Comment on above: Performed By: #### G FR, RFP #### [address] [address] Platelet mean volume (Bld) [Entitic vol] 7.6 fL Normal 6.6-10.5 [facility] Comment on above: Performed By: #### G FR, RFP #### [address] [address] RBC 3.23 10 6/mcL Low 4.10-5.30 [facility] Comment on above: Performed By: #### G FR, RFP #### [place] [id number] WBC 6.0 10 3/mcL Normal 4.5-10.8 [facility] Comment on above: Performed By: #### G FR, RFP #### [address] [address] RFPon 04-02-2025 Albumin Level 2.4 G/dL Low 3.2-4.8 [facility] Comment on above: Performed By: #### C BC, GFR, MORPH, RFP, DIFF #### [address] [address] BUN/Creatinine Ratio 16.5 ratio Normal 10.0-22.0 [facility] Comment on above: Performed By: #### C BC, GFR, MORPH, RFP, DIFF #### [address] [address] Calcium [Mass/Vol] 8.9 mg/dL Normal 8.7-10.4 [facility] Comment on above: Performed By: #### C BC, GFR, MORPH, RFP, DIFF #### [address] [address] Chloride [Moles/Vol] 98 mmol/L Normal 98-110 [facility] Comment on above: Performed By: #### C BC, GFR, MORPH, RFP, DIFF #### [address] [address] CO2 [Moles/Vol] 25 mmol/L Normal 22-32 [facility] Comment on above: Performed By: #### C BC, GFR, MORPH, RFP, DIFF #### [address] [address] Creatinine [Mass/Vol] 3.52 mg/dL High 0.50-1.20 [facility] Comment on above: Result Comment: Test ing performed on [employer] analyzer using enzymatic creatinine methodology. Performed By: #### C BC, GFR, MORPH, RFP, DIFF #### [address] [address] Electrolyte Balance 14.0 mEq/L Normal 4.0-15.0 [facility] Comment on above: Performed By: #### C BC, GFR, MORPH, RFP, DIFF #### [address] [address] Glucose [Mass/Vol] 105 mg/dL Normal 82-115 [facility] Comment on above: Performed By: #### C BC, GFR, MORPH, RFP, DIFF #### [address] [address] Phosphate [Mass/Vol] 8.0 mg/dL High 2.4-5.1 [facility] Comment on above: Performed By: #### C BC, GFR, MORPH, RFP, DIFF #### [address] [address] Potassium [Moles/Vol] 5.7 mmol/L High 3.5-5.0 [facility] Comment on above: Performed By: #### C BC, GFR, MORPH, RFP, DIFF #### [address] [address] Sodium [Moles/Vol] 137 mmol/L Normal 136-145 [facility] Comment on above: Performed By: #### C BC, GFR, MORPH, RFP, DIFF #### [address] [address] Urea nitrogen [Mass/Vol] 58.0 mg/dL High 8.0-22.0 [facility] Comment on above: Performed By: #### C BC, GFR, MORPH, RFP, DIFF #### [address] [address] .Auto Diffon 03-30-2025 Basophil, Absolute 0.1 10 3/mcL Normal 0.0-0.3 [facility] Comment on above: Performed By: #### M G, RFP, BMP, GFR #### [address] [address] Basophils/100 WBC (Bld) 1.1 % Normal 0.0-2.5 [facility] Comment on above: Performed By: #### M G, RFP, BMP, GFR #### [address] [address] Eosinophil, Absolute 0.2 10 3/mcL Normal 0.0-0.7 [facility] Comment on above: Performed By: #### M G, RFP, BMP, GFR #### [address] [address] Eosinophils/100 WBC (Bld) 3.2 % Normal 0.0-6.0 [facility] Comment on above: Performed By: #### M G, RFP, BMP, GFR #### [address] [address] Lymphocyte, Absolute 0.7 10 3/mcL Low 0.9-4.3 [facility] Comment on above: Performed By: #### M G, RFP, BMP, GFR #### [address] [address] Lymphocytes/100 WBC (Bld) 14.1 % Low 20.0-40.0 [facility] Comment on above: Performed By: #### M G, RFP, BMP, GFR #### [address] [address] Monocyte, Absolute 0.7 10 3/mcL Normal 0.1-1.4 [facility] Comment on above: Performed By: #### M G, RFP, BMP, GFR #### [address] [address] Monocytes/100 WBC (Bld) 12.8 % Normal 2.0-13.0 [facility] Comment on above: Performed By: #### M G, RFP, BMP, GFR #### [address] [address] Neutrophils/100 WBC (Bld) 68.8 % Normal 50.0-75.0 [facility] Comment on above: Performed By: #### M G, RFP, BMP, GFR #### [address] [address] .GFRon 03-30-2025 Estimated Glomerular Filtration Rate 16 ml/min/1.73sqm [facility] [place] [facility]IN Comment on above: Result Comment: Stages [...] #### M G, RFP, BMP, GFR #### [place] [address] .Morphon 03-30-2025 Anisocytosis Ql (Bld) 2+ Normal [facility] Comment on above: Performed By: #### M G, RFP, BMP, GFR #### [place] [address] Hypochrom 1+ Normal [facility] Comment on above: Performed By: #### M G, RFP, BMP, GFR #### [place] [address] Microcytosis 2+ Normal [facility] Comment on above: Performed By: #### M G, RFP, BMP, GFR #### [place] [address] Ovalocytes 1+ [facility] [place] [facility]IN Comment on above: Performed By: #### M G, RFP, BMP, GFR #### [address] [address] Platelet Estimate Normal Normal [facility] Comment on above: Performed By: #### M G, RFP, BMP, GFR #### [place] [address] Poik 1+ Normal [facility] Comment on above: Performed By: #### M G, RFP, BMP, GFR #### [place] [address] .NEUABSon 03-30-2025 Neutrophil, Absolute 3.6 10 3/mcL Normal 2.3-8.1 [facility] Comment on above: Performed By: #### M G, RFP, BMP, GFR #### [place] [address] CBCon 03-30-2025 Erythrocyte distribution width (RBC) [Ratio] 27.7 % High 11.5-15.5 [facility] Comment on above: Performed By: #### M G, RFP, BMP, GFR #### [place] [address] Hematocrit (Bld) [Volume fraction] 24.9 % Low 34.0-46.0 [facility] Comment on above: Performed By: #### M G, RFP, BMP, GFR #### [place] [address] Hgb 7.8 G/dL Low 12.0-16.0 [facility] Comment on above: Performed By: #### M G, RFP, BMP, GFR #### [place] [address] MCH (RBC) [Entitic mass] 23.4 pg Low 27.0-33.0 [facility] Comment on above: Performed By: #### M G, RFP, BMP, GFR #### [place] [address] MCHC 31.3 G/dL Low 32.0-36.0 [facility] Comment on above: Performed By: #### M G, RFP, BMP, GFR #### [place] [address] MCV (RBC) [Entitic vol] 74.8 fL Low 80.0-99.0 [facility] Comment on above: Performed By: #### M G, RFP, BMP, GFR #### [address] [address] Platelet 231 10 3/mcL Normal 150-450 [facility] Comment on above: Performed By: #### M G, RFP, BMP, GFR #### [place] [address] Platelet mean volume (Bld) [Entitic vol] 7.7 fL Normal 6.6-10.5 [facility] Comment on above: Performed By: #### M G, RFP, BMP, GFR #### [place] [address] RBC 3.33 10 6/mcL Low 4.10-5.30 [facility] Comment on above: Performed By: #### M G, RFP, BMP, GFR #### [place] [id number] WBC 5.2 10 3/mcL Normal 4.5-10.8 [facility] Comment on above: Performed By: #### M G, RFP, BMP, GFR #### [place] [address] RFPon 03-30-2025 Albumin Level 2.1 G/dL Low 3.2-4.8 [facility] Comment on above: Performed By: #### M G, RFP, BMP, GFR #### [place] [address] BUN/Creatinine Ratio 15.6 ratio Normal 10.0-22.0 [facility] Comment on above: Performed By: #### M G, RFP, BMP, GFR #### [place] [address] Calcium [Mass/Vol] 9.0 mg/dL Normal 8.7-10.4 [facility] Comment on above: Performed By: #### M G, RFP, BMP, GFR #### [place] [address] Chloride [Moles/Vol] 96 mmol/L Low 98-110 [facility] Comment on above: Performed By: #### M G, RFP, BMP, GFR #### [address] [address] CO2 [Moles/Vol] 27 mmol/L Normal 22-32 [facility] Comment on above: Performed By: #### M G, RFP, BMP, GFR #### [address] [address] Creatinine [Mass/Vol] 2.94 mg/dL High 0.50-1.20 [facility] Comment on above: Result Comment: Test ing performed on [employer] analyzer using enzymatic creatinine methodology. Performed By: #### M G, RFP, BMP, GFR #### [address] [address] Electrolyte Balance 14.0 mEq/L Normal 4.0-15.0 [facility] Comment on above: Performed By: #### M G, RFP, BMP, GFR #### [address] [address] Glucose [Mass/Vol] 173 mg/dL High 82-115 [facility] Comment on above: Performed By: #### M G, RFP, BMP, GFR #### [address] [address] Phosphate [Mass/Vol] 7.5 mg/dL High 2.4-5.1 [facility] Comment on above: Performed By: #### M G, RFP, BMP, GFR #### [address] [address] Potassium [Moles/Vol] 4.6 mmol/L Normal 3.5-5.0 [facility] Comment on above: Performed By: #### M G, RFP, BMP, GFR #### [address] [address] Sodium [Moles/Vol] 137 mmol/L Normal 136-145 [facility] Comment on above: Performed By: #### M G, RFP, BMP, GFR #### [address] [address] Urea nitrogen [Mass/Vol] 46.0 mg/dL High 8.0-22.0 [facility] Comment on above: Performed By: #### M G, RFP, BMP, GFR #### [address] [address] .GFRon 03-28-2025 Estimated Glomerular Filtration Rate 15 ml/min/1.73sqm Normal [facility] Comment on above: Result Comment: [...] C BC, GFR, MORPH, RFP, DIFF #### [address] [address] RFPon 03-28-2025 Albumin Level 2.2 G/dL Low 3.2-4.8 [facility] Comment on above: Performed By: #### G FR, RFP #### [address] [address] BUN/Creatinine Ratio 17.8 ratio Normal 10.0-22.0 [facility] Comment on above: Performed By: #### G FR, RFP #### [address] [address] Calcium [Mass/Vol] 8.7 mg/dL Normal 8.7-10.4 [facility] Comment on above: Performed By: #### G FR, RFP #### [address] [address] Chloride [Moles/Vol] 96 mmol/L Low 98-110 [facility] Comment on above: Performed By: #### G FR, RFP #### [address] [address] CO2 [Moles/Vol] 29 mmol/L Normal 22-32 [facility] Comment on above: Performed By: #### G FR, RFP #### [address] [address] Creatinine [Mass/Vol] 3.09 mg/dL High 0.50-1.20 [facility] Comment on above: Result Comment: Test ing performed on [employer] analyzer using enzymatic creatinine methodology. Performed By: #### G FR, RFP #### [address] [address] Electrolyte Balance 10.0 mEq/L Normal 4.0-15.0 [facility] Comment on above: Performed By: #### G FR, RFP #### [address] [address] Glucose [Mass/Vol] 129 mg/dL High 82-115 [facility] Comment on above: Performed By: #### G FR, RFP #### [address] [address] Phosphate [Mass/Vol] 7.8 mg/dL High 2.4-5.1 [facility] Comment on above: Performed By: #### G FR, RFP #### [address] [address] Potassium [Moles/Vol] 4.9 mmol/L Normal 3.5-5.0 [facility] Comment on above: Performed By: #### G FR, RFP #### [address] [address] Sodium [Moles/Vol] 135 mmol/L Low 136-145 [facility] Comment on above: Performed By: #### G FR, RFP #### [address] [address] Urea nitrogen [Mass/Vol] 55.0 mg/dL High 8.0-22.0 [facility] Comment on above: Performed By: #### G FR, RFP #### [address] [address] .GFRon 03-27-2025 Estimated Glomerular Filtration Rate 21 ml/min/1.73sqm Normal [facility] Comment on above: Result Comment: [...] #### M G, RFP, BMP, GFR #### [place] [id number] CMPon 03-27-2025 Albumin Level 2.2 G/dL Low 3.2-4.8 [facility] Comment on above: Performed By: #### M G, RFP, BMP, GFR #### [place] [address] Albumin/Globulin [Mass ratio] 0.6 {ratio} Low 0.9-1.6 [facility] Comment on above: Performed By: #### M G, RFP, BMP, GFR #### [address] [address] ALP [Catalytic activity/Vol] 208 U/L High 38-126 [facility] Comment on above: Performed By: #### M G, RFP, BMP, GFR #### [place] [phone] ALT [Catalytic activity/Vol] 14 U/L Normal 10-49 [facility] Comment on above: Performed By: #### M G, RFP, BMP, GFR #### [address] [address] AST [Catalytic activity/Vol] 19 U/L Normal 8-34 [facility] Comment on above: Performed By: #### M G, RFP, BMP, GFR #### [place] [id number] Bili Total 0.30 mg/dL Normal 0.20-1.20 [facility] Comment on above: Result Comment: Use of this assay is not recommended for patients undergoing treatment with eltrombopag due to the potential for falsely elevated results. Performed By: #### M Linda, RFP, BMP, GFR #### [address] [address] BUN/Creatinine Ratio 19.6 ratio Normal 10.0-22.0 [facility] Comment on above: Performed By: #### M G, RFP, BMP, GFR #### [address] [address] Calcium [Mass/Vol] 8.4 mg/dL Low 8.7-10.4 [facility] Comment on above: Performed By: #### Iain Mckeon, RFP, BMP, GFR #### [address] [address] Chloride [Moles/Vol] 97 mmol/L Low 98-110 [facility] Comment on above: Performed By: #### Iain Mckeon, RFP, BMP, GFR #### [address] [address] CO2 [Moles/Vol] 30 mmol/L Normal 22-32 [facility] Comment on above: Performed By: #### Iain Mckeon, RFP, BMP, GFR #### [address] [address] Creatinine [Mass/Vol] 2.35 mg/dL High 0.50-1.20 [facility] Comment on above: Result Comment: Test ing performed on [employer] analyzer using enzymatic creatinine methodology. Performed By: #### M G, RFP, BMP, GFR #### [address] [address] Electrolyte Balance 8.0 mEq/L Normal 4.0-15.0 [facility] Comment on above: Performed By: #### M G, RFP, BMP, GFR #### [address] [address] Globulin 3.7 G/dL Normal 2.5-4.2 [facility] Comment on above: Performed By: #### M G, RFP, BMP, GFR #### [address] [address] Glucose [Mass/Vol] 170 mg/dL High 82-115 [facility] Comment on above: Performed By: #### Iain Mckeon, RFP, BMP, GFR #### [address] [address] Potassium [Moles/Vol] 4.8 mmol/L Normal 3.5-5.0 [facility] Comment on above: Performed By: #### Iain Mckeon, RFP, BMP, GFR #### [address] [address] Sodium [Moles/Vol] 135 mmol/L Low 136-145 [facility] Comment on above: Performed By: #### Iain Mckeon, RFP, BMP, GFR #### [address] [address] Total Protein 5.9 G/dL Normal 5.7-8.2 [facility] Comment on above: Performed By: #### Iain Mckeon, RFP, BMP, GFR #### [address] [address] Urea nitrogen [Mass/Vol] 46.0 mg/dL High 8.0-22.0 [facility] Comment on above: Performed By: #### Iain Mckeon, RFP, BMP, GFR #### [address] [address] MGon 03-27-2025 Magnesium [Mass/Vol] 2.4 mg/dL Normal 1.6-2.4 [facility] Comment on above: Performed By: #### Iain Mckeon, RFP, BMP, GFR #### [address] [address] .GFRon 03-26-2025 Estimated Glomerular Filtration Rate 14 ml/min/1.73sqm Normal [facility] Comment on above: Result Comment: [...] C BC, GFR, MORPH, RFP, DIFF #### [place] [address] .Manual Diffon 03-26-2025 Bands 2.0 % Normal 0.0-5.0 [facility] Comment on above: Performed By: #### C BC, GFR, MORPH, RFP, DIFF #### [place] [address] Basophil %, Manual 1.0 % Normal 0.0-2.5 [facility] Comment on above: Performed By: #### C BC, GFR, MORPH, RFP, DIFF #### [place] [address] Basophil, Abs Manual 0.1 10 3/mcL Normal 0.0-0.3 [facility] Comment on above: Performed By: #### C BC, GFR, MORPH, RFP, DIFF #### [place] [address] Eosinophil %, Manual 2.0 % Normal 0.0-6.0 [facility] Comment on above: Performed By: #### C BC, GFR, MORPH, RFP, DIFF #### [place] [address] Eosinophil, Abs Manual 0.2 10 3/mcL Normal 0.0-0.7 [facility] Comment on above: Performed By: #### C BC, GFR, MORPH, RFP, DIFF #### [place] [address] Lymphocyte %, Manual 9.0 % Low 20.0-40.0 [facility] Comment on above: Performed By: #### C BC, GFR, MORPH, RFP, DIFF #### [place] [address] Lymphocyte, Abs Manual 0.9 10 3/mcL Normal 0.9-4.3 [facility] Comment on above: Performed By: #### C BC, GFR, MORPH, RFP, DIFF #### [place] [address] Monocyte %, Manual 11.0 % Normal 2.0-13.0 [facility] Comment on above: Performed By: #### C BC, GFR, MORPH, RFP, DIFF #### [place] [address] Monocyte, Abs Manual 1.1 10 3/mcL Normal 0.1-1.4 [facility] Comment on above: Performed By: #### C BC, GFR, MORPH, RFP, DIFF #### [place] [address] Neutrophil %, Manual 75.0 % Normal 50.0-75.0 [facility] Comment on above: Performed By: #### C BC, GFR, MORPH, RFP, DIFF #### [place] [address] Neutrophil, Abs Manual 7.8 10 3/mcL Normal 2.3-8.1 [facility] Comment on above: Performed By: #### C BC, GFR, MORPH, RFP, DIFF #### [place] [address] Nucleated RBC 0.0 /100 WBC Normal [facility] Comment on above: Performed By: #### C BC, GFR, MORPH, RFP, DIFF #### [place] [address] .[place]orph[place] 03-26-2025 Anisocytosis Ql (Bld) 2+ Normal [facility] Comment on above: Performed By: #### C BC, GFR, MORPH, RFP, DIFF #### [place] [address] Microcytosis 2+ Normal [facility] Comment on above: Performed By: #### C BC, GFR, MORPH, RFP, DIFF #### [place] [address] Ovalocytes 1+ Normal [facility] Comment on above: Performed By: #### C BC, GFR, MORPH, RFP, DIFF #### [address] [address] Platelet Clumps Few Normal [facility] Comment on above: Performed By: #### C BC, GFR, MORPH, RFP, DIFF #### [place] [id number] Platelet Estimate Normal Normal [facility] Comment on above: Performed By: #### C BC, GFR, MORPH, RFP, DIFF #### [place] [id number] CBCon 03-26-2025 Platelet 194 10 3/mcL Normal 150-450 [facility] Comment on above: Performed By: #### C BC, GFR, MORPH, RFP, DIFF #### [place] [id number] Platelet mean volume (Bld) [Entitic vol] 8.1 fL Normal 6.6-10.5 [facility] Comment on above: Performed By: #### C BC, GFR, MORPH, RFP, DIFF #### [place] [id number] WBC 10.1 10 3/mcL Normal 4.5-10.8 [facility] Comment on above: Performed By: #### C BC, GFR, MORPH, RFP, DIFF #### [place] [address] Erythrocyte distribution width (RBC) [Ratio] 27.8 % High 11.5-15.5 [facility] Comment on above: Performed By: #### C BC, GFR, MORPH, RFP, DIFF #### [place] [address] Hematocrit (Bld) [Volume fraction] 24.0 % Low 34.0-46.0 [facility] Comment on above: Performed By: #### C BC, GFR, MORPH, RFP, DIFF #### [place] [address] Hgb 8.0 G/dL Low 12.0-16.0 [facility] Comment on above: Performed By: #### C BC, GFR, MORPH, RFP, DIFF #### [place] [id number] MCH (RBC) [Entitic mass] 24.2 pg Low 27.0-33.0 [facility] Comment on above: Performed By: #### C BC, GFR, MORPH, RFP, DIFF #### [address] [address] MCHC 33.1 G/dL Normal 32.0-36.0 [facility] Comment on above: Performed By: #### C BC, GFR, MORPH, RFP, DIFF #### [place] [id number] MCV (RBC) [Entitic vol] 73.0 fL Low 80.0-99.0 [facility] Comment on above: Performed By: #### C BC, GFR, MORPH, RFP, DIFF #### [place] [address] RBC 3.29 10 6/mcL Low 4.10-5.30 [facility] Comment on above: Performed By: #### C BC, GFR, MORPH, RFP, DIFF #### [place] [address] RFPon 03-26-2025 Albumin Level 2.4 G/dL Low 3.2-4.8 [facility] Comment on above: Performed By: #### C BC, GFR, MORPH, RFP, DIFF #### [place] [address] BUN/Creatinine Ratio 19.9 ratio Normal 10.0-22.0 [facility] Comment on above: Performed By: #### C BC, GFR, MORPH, RFP, DIFF #### [place] [id number] Calcium [Mass/Vol] 8.8 mg/dL Normal 8.7-10.4 [facility] Comment on above: Performed By: #### C BC, GFR, MORPH, RFP, DIFF #### [place] [id number] Chloride [Moles/Vol] 94 mmol/L Low 98-110 [facility] Comment on above: Performed By: #### C BC, GFR, MORPH, RFP, DIFF #### [place] [id number] CO2 [Moles/Vol] 23 mmol/L Normal 22-32 [facility] Comment on above: Performed By: #### C BC, GFR, MORPH, RFP, DIFF #### [address] [address] Creatinine [Mass/Vol] 3.32 mg/dL High 0.50-1.20 [facility] Comment on above: Result Comment: Test ing performed on [employer] analyzer using enzymatic creatinine methodology. Performed By: #### C BC, GFR, MORPH, RFP, DIFF #### [address] [address] Electrolyte Balance 15.0 mEq/L Normal 4.0-15.0 [facility] Comment on above: Performed By: #### C BC, GFR, MORPH, RFP, DIFF #### [address] [address] Glucose [Mass/Vol] 190 mg/dL High 82-115 [facility] Comment on above: Performed By: #### C BC, GFR, MORPH, RFP, DIFF #### [address] [address] Phosphate [Mass/Vol] 8.7 mg/dL High 2.4-5.1 [facility] Comment on above: Performed By: #### C BC, GFR, MORPH, RFP, DIFF #### [address] [address] Potassium [Moles/Vol] 5.5 mmol/L High 3.5-5.0 [facility] Comment on above: Performed By: #### C BC, GFR, MORPH, RFP, DIFF #### [address] [address] Sodium [Moles/Vol] 132 mmol/L Low 136-145 [facility] Comment on above: Performed By: #### C BC, GFR, MORPH, RFP, DIFF #### [address] [address] Urea nitrogen [Mass/Vol] 66.0 mg/dL High 8.0-22.0 [facility] Comment on above: Performed By: #### C BC, GFR, MORPH, RFP, DIFF #### [place] [address] XR CHEST 1 VIEWon 03-26-2025 XR CHEST [...] 03/26/2025 12:00:03 PM Ordering Provider: BISHNU SALAMANCA [facility] .GFRon 03-25-2025 Estimated Glomerular Filtration Rate 17 ml/min/1.73sqm [facility] [place] [facility] Comment on above: Result Comment: Stages [...] Performed By: #### G FR, RFP #### [address] [address] [facility] 03-25-2025 BUN/Creatinine Ratio 21.8 ratio Normal 10.0-22.0 [facility] Comment on above: Performed By: #### G FR, RFP #### [address] [address] Calcium [Mass/Vol] 8.4 mg/dL Low 8.7-10.4 [facility] Comment on above: Performed By: #### G FR, RFP #### [address] [address] Chloride [Moles/Vol] 96 mmol/L Low 98-110 [facility] Comment on above: Performed By: #### G FR, RFP #### [address] [address] CO2 [Moles/Vol] 27 mmol/L Normal 22-32 [facility] Comment on above: Performed By: #### G FR, RFP #### [address] [address] Creatinine [Mass/Vol] 2.85 mg/dL High 0.50-1.20 [facility] Comment on above: Result Comment: Test ing performed on [employer] analyzer using enzymatic creatinine methodology. Performed By: #### G FR, RFP #### [address] [address] Electrolyte Balance 8.0 mEq/L Normal 4.0-15.0 [facility] Comment on above: Performed By: #### G FR, RFP #### [address] [address] Glucose [Mass/Vol] 203 mg/dL High 82-115 [facility] Comment on above: Performed By: #### G FR, RFP #### [address] [address] Potassium [Moles/Vol] 4.8 mmol/L Normal 3.5-5.0 [facility] Comment on above: Performed By: #### G FR, RFP #### [address] [address] Sodium [Moles/Vol] 131 mmol/L Low 136-145 [facility] Comment on above: Performed By: #### G FR, RFP #### [address] [address] Urea nitrogen [Mass/Vol] 62.0 mg/dL High 8.0-22.0 [facility] Comment on above: Performed By: #### G FR, RFP #### [address] [address] .Auto Diffon 03-23-2025 Basophil, Absolute 0.1 10 3/mcL Normal 0.0-0.3 [facility] Comment on above: Performed By: #### M G, RFP, BMP, GFR #### [address] [address] Basophils/100 WBC (Bld) 1.1 % Normal 0.0-2.5 [facility] Comment on above: Performed By: #### M G, RFP, BMP, GFR #### [address] [address] Eosinophil, Absolute 0.1 10 3/mcL Normal 0.0-0.7 [facility] Comment on above: Performed By: #### M G, RFP, BMP, GFR #### [address] [address] Eosinophils/100 WBC (Bld) 2.0 % Normal 0.0-6.0 [facility] Comment on above: Performed By: #### M G, RFP, BMP, GFR #### [address] [address] Lymphocyte, Absolute 0.9 10 3/mcL Normal 0.9-4.3 [facility] Comment on above: Performed By: #### M G, RFP, BMP, GFR #### [address] [address] Lymphocytes/100 WBC (Bld) 14.1 % Low 20.0-40.0 [facility] Comment on above: Performed By: #### M G, RFP, BMP, GFR #### [address] [address] Monocyte, Absolute 0.5 10 3/mcL Normal 0.1-1.4 [facility] Comment on above: Performed By: #### M G, RFP, BMP, GFR #### [address] [address] Monocytes/100 WBC (Bld) 8.0 % Normal 2.0-13.0 [facility] Comment on above: Performed By: #### M G, RFP, BMP, GFR #### [address] [address] Neutrophils/100 WBC (Bld) 74.8 % Normal 50.0-75.0 [facility] Comment on above: Performed By: #### M G, RFP, BMP, GFR #### [address] [address] .GFRon 03-23-2025 Estimated Glomerular Filtration Rate 16 ml/min/1.73sqm Normal [facility] Comment on above: Result Comment: [...] #### M G, RFP, BMP, GFR #### [address] [address] .NEUABSon 03-23-2025 Neutrophil, Absolute 4.6 10 3/mcL Normal 2.3-8.1 [facility] Comment on above: Performed By: #### M G, RFP, BMP, GFR #### [address] [address] BFPRon 03-23-2025 Body Fluid Path Review Normal [facility] Comment on above: Order Comment: Added [...] C BC, GFR, MORPH, RFP, DIFF #### [place] [address] CBCon 03-23-2025 Erythrocyte distribution width (RBC) [Ratio] 27.5 % High 11.5-15.5 [facility] Comment on above: Performed By: #### M G, RFP, BMP, GFR #### [place] [address] Hematocrit (Bld) [Volume fraction] 25.6 % Low 34.0-46.0 [facility] Comment on above: Performed By: #### M G, RFP, BMP, GFR #### [place] [address] Hgb 8.1 G/dL Low 12.0-16.0 [facility] Comment on above: Performed By: #### M G, RFP, BMP, GFR #### [place] [address] MCH (RBC) [Entitic mass] 23.0 pg Low 27.0-33.0 [facility] Comment on above: Performed By: #### M G, RFP, BMP, GFR #### [place] [address] MCHC 31.7 G/dL Low 32.0-36.0 [facility] Comment on above: Performed By: #### M G, RFP, BMP, GFR #### [place] [address] MCV (RBC) [Entitic vol] 72.5 fL Low 80.0-99.0 [facility] Comment on above: Performed By: #### M G, RFP, BMP, GFR #### [place] [id number] Platelet 226 10 3/mcL Normal 150-450 [facility] Comment on above: Performed By: #### M G, RFP, BMP, GFR #### [address] [address] Platelet mean volume (Bld) [Entitic vol] 8.1 fL Normal 6.6-10.5 [facility] Comment on above: Performed By: #### M G, RFP, BMP, GFR #### [place] [address] RBC 3.54 10 6/mcL Low 4.10-5.30 [facility] Comment on above: Performed By: #### M G, RFP, BMP, GFR #### [place] [id number] WBC 6.1 10 3/mcL Normal 4.5-10.8 [facility] Comment on above: Performed By: #### M G, RFP, BMP, GFR #### [place] [id number] Non-Back Shoe Worker Cytology Reporton Non-Back Shoe Worker Cytology Report . Pathology Reports Accession: Collected Date/Time: Received Date/Time: Pathologist: [id number] 03/22/2025 09:55 EDT 03/22/2025 14:12 EDT CHRISTIANO LIU MD Non-Back Shoe Worker Cytology Report CLINICAL INFORMATION: effusion DIAGNOSTIC CATEGORY: NEGATIVE FOR MALIGNANCY. SPECIMEN: Left pleural fluid GROSS DESCRIPTION: # of Blocks: 1 # of Monolayers: 1 Volume (ml) 600 Color: fresh cloudy orange Verified by Pathology Report verified by [facility] Screened by: HARJIT UT Electronically signed by CHRISTIANO LIU Sign-Out Date: 03/23/2025 10:21 Performing Lab: [address] Pathology Dept Disclaimer If ancillary studies were utilized, the following Laboratory Developed Test (LDT) disclaimer will apply: Under CLIA requirements, [facility] Laboratory is qualified to perform high complexity testing. For all ancillary stains, positive and negative controls stain appropriately. Performance characteristics of immunohistochemical and chromogenic in-situ hybridization tests have been determined by [facility]. These tests are used for clinical purposes, They should not be regarded as investigational or for research. Normal [facility] RFPon 03-23-2025 Albumin Level 2.1 G/dL Low 3.2-4.8 [facility] Comment on above: Performed By: #### M G, RFP, BMP, GFR #### [address] [address] BUN/Creatinine Ratio 22.8 ratio High 10.0-22.0 [facility] Comment on above: Performed By: #### M G, RFP, BMP, GFR #### [address] [address] Calcium [Mass/Vol] 8.4 mg/dL Low 8.7-10.4 [facility] Comment on above: Performed By: #### M G, RFP, BMP, GFR #### [address] [address] Chloride [Moles/Vol] 96 mmol/L Low 98-110 [facility] Comment on above: Performed By: #### M G, RFP, BMP, GFR #### [address] [address] CO2 [Moles/Vol] 24 mmol/L Normal 22-32 [facility] Comment on above: Performed By: #### M G, RFP, BMP, GFR #### [address] [address] Creatinine [Mass/Vol] 2.89 mg/dL High 0.50-1.20 [facility] Comment on above: Result Comment: Test ing performed on [employer] analyzer using enzymatic creatinine methodology. Performed By: #### M G, RFP, BMP, GFR #### [address] [address] Electrolyte Balance 9.0 mEq/L Normal 4.0-15.0 [facility] Comment on above: Performed By: #### M G, RFP, BMP, GFR #### [address] [address] Glucose [Mass/Vol] 146 mg/dL High 82-115 [facility] Comment on above: Performed By: #### M G, RFP, BMP, GFR #### [address] [address] Phosphate [Mass/Vol] 7.4 mg/dL High 2.4-5.1 [facility] Comment on above: Performed By: #### M G, RFP, BMP, GFR #### [address] [address] Potassium [Moles/Vol] 4.7 mmol/L Normal 3.5-5.0 [facility] Comment on above: Performed By: #### M G, RFP, BMP, GFR #### [address] [address] Sodium [Moles/Vol] 129 mmol/L Low 136-145 [facility] Comment on above: Performed By: #### M G, RFP, BMP, GFR #### [address] [address] Urea nitrogen [Mass/Vol] 66.0 mg/dL High 8.0-22.0 [facility] Comment on above: Performed By: #### M G, RFP, BMP, GFR #### [address] [address] BFCTon 03-22-2025 Cells Counted BF 100 [facility] [place] [facility]IN Comment on above: Performed By: #### C BC, GFR, MORPH, RFP, DIFF #### [address] [address] Lymphocytes/100 WBC (Bld) 31 % Normal [facility] Comment on above: Performed By: #### C BC, GFR, MORPH, RFP, DIFF #### [address] [address] Mesothelial Cell % BF 34 % Normal [facility] Comment on above: Performed By: #### C BC, GFR, MORPH, RFP, DIFF #### [address] [address] Mononuclear cell % BF 5 % Normal [facility] Comment on above: Performed By: #### C BC, GFR, MORPH, RFP, DIFF #### [place] [address] Neutrophils/100 WBC (Bld) 30 % Normal [facility] Comment on above: Performed By: #### C BC, GFR, MORPH, RFP, DIFF #### [address] [address] Body Fluid Source Pleural fluid Normal [facility] Comment on above: Result Comment: Refe rence ranges have not been established for this body fluid. The test results must be integrated into the clinical context for interpretation. Performed By: #### C BC, GFR, MORPH, RFP, DIFF #### [place] [address] Total Nucleated Cells 820 /mm3 Normal [facility] Comment on above: Performed By: #### C BC, GFR, MORPH, RFP, DIFF #### [place] [address] [facility] Glucose BF 113.0 mg/dL Normal [facility] Comment on above: Performed By: #### C BC, GFR, MORPH, RFP, DIFF #### [place] [address] Glucose Body Fluid Spec Type Pleural fluid Normal [facility] Comment on above: Result Comment: The reference interval(s) and other method performance specifications have not been established for this body fluid. The test result must be integrated into the clinical content for interpretation. Performed By: #### C BC, GFR, MORPH, RFP, DIFF #### [place] [address] [facility]-2025 LDH BF 71.0 U/L Normal [facility] Comment on above: Performed By: #### C BC, GFR, MORPH, RFP, DIFF #### [place] [address] LDH Body Fluid Spec Type Pleural fluid Normal [facility] Comment on above: Result Comment: The reference interval(s) and other method performance specifications have not been established for this body fluid. The test result must be integrated into the clinical content for interpretation. . Performed By: #### C BC, GFR, MORPH, RFP, DIFF #### [place] [address] PHBFon 03-22-2025 pH BF 7.4 Normal [facility] Comment on above: Performed By: #### G FR, RFP #### [place] [address] pH BF Spec Type Pleural fluid Normal [facility] Comment on above: Result Comment: LEFT The reference interval(s) and other method performance specifications have not been established for this body fluid. The test result must be integrated into the clinical content for interpretation. Performed By: #### G FR, RFP #### [place] [address] PROBFon 03-22-2025 Protein BF <2.0 Normal [facility] Comment on above: Performed By: #### C BC, GFR, MORPH, RFP, DIFF #### [place] [address] Protein BF Type Pleural fluid Normal [facility] Comment on above: Result Comment: The reference interval(s) and other method performance specifications have not been established for this body fluid. The test result must be integrated into the clinical content for interpretation. Performed By: #### C BC, GFR, MORPH, RFP, DIFF #### [place] [address] XR CHEST 1 VIEWon 03-22-2025 XR CHEST [...] 03/22/2025 10:22:24 AM Ordering Provider: CHA YUSUF [facility] [place] [facility] .GFRon 03-21-2025 Estimated Glomerular Filtration Rate 15 ml/min/1.73sqm [facility] [place] [facility] Comment on above: Result Comment: Stages [...] #### M G, RFP, BMP, GFR #### [address] [address] RFPon 03-21-2025 Albumin Level 2.1 G/dL Low 3.2-4.8 [facility] Comment on above: Performed By: #### M G, RFP, BMP, GFR #### [address] [address] BUN/Creatinine Ratio 26.9 ratio High 10.0-22.0 [facility] Comment on above: Performed By: #### M G, RFP, BMP, GFR #### [address] [address] Calcium [Mass/Vol] 8.2 mg/dL Low 8.7-10.4 [facility] Comment on above: Performed By: #### M G, RFP, BMP, GFR #### [address] [address] Chloride [Moles/Vol] 92 mmol/L Low 98-110 [facility] Comment on above: Performed By: #### M G, RFP, BMP, GFR #### [address] [address] CO2 [Moles/Vol] 21 mmol/L Low 22-32 [facility] Comment on above: Performed By: #### M G, RFP, BMP, GFR #### [address] [address] Creatinine [Mass/Vol] 3.08 mg/dL High 0.50-1.20 [facility] Comment on above: Result Comment: Test ing performed on [employer] analyzer using enzymatic creatinine methodology. Performed By: #### M G, RFP, BMP, GFR #### [address] [address] Electrolyte Balance 17.0 mEq/L High 4.0-15.0 [facility] Comment on above: Performed By: #### M G, RFP, BMP, GFR #### [address] [address] Glucose [Mass/Vol] 201 mg/dL High 82-115 [facility] Comment on above: Performed By: #### M G, RFP, BMP, GFR #### [address] [address] Phosphate [Mass/Vol] 6.9 mg/dL High 2.4-5.1 [facility] Comment on above: Performed By: #### M G, RFP, BMP, GFR #### [address] [address] Potassium [Moles/Vol] 5.0 mmol/L Normal 3.5-5.0 [facility] Comment on above: Performed By: #### M G, RFP, BMP, GFR #### [address] [address] Sodium [Moles/Vol] 130 mmol/L Low 136-145 [facility] Comment on above: Performed By: #### M G, RFP, BMP, GFR #### [address] [address] Urea nitrogen [Mass/Vol] 83.0 mg/dL High 8.0-22.0 [facility] Comment on above: Performed By: #### M G, RFP, BMP, GFR #### [address] [address] XR CHEST 1 VIEWon 03-21-2025 XR CHEST [...] 10:34:28 AM Ordering Provider: CHA YUSUF Normal [facility] .Manual Diffon 03-20-2025 Bands 2.0 % Normal 0.0-5.0 [facility] Comment on above: Performed By: #### C BC, GFR, MORPH, RFP, DIFF #### [address] [address] Basophil %, Manual 0.0 % Normal 0.0-2.5 [facility] Comment on above: Performed By: #### C BC, GFR, MORPH, RFP, DIFF #### [address] [address] Basophil, Abs Manual 0.0 10 3/mcL Normal 0.0-0.3 [facility] Comment on above: Performed By: #### C BC, GFR, MORPH, RFP, DIFF #### [address] [address] Eosinophil %, Manual 3.0 % Normal 0.0-6.0 [facility] Comment on above: Performed By: #### C BC, GFR, MORPH, RFP, DIFF #### [address] [address] Eosinophil, Abs Manual 0.2 10 3/mcL Normal 0.0-0.7 [facility] Comment on above: Performed By: #### C BC, GFR, MORPH, RFP, DIFF #### [address] [address] Lymphocyte %, Manual 10.0 % Low 20.0-40.0 [facility] Comment on above: Performed By: #### C BC, GFR, MORPH, RFP, DIFF #### [address] [address] Lymphocyte, Abs Manual 0.7 10 3/mcL Low 0.9-4.3 [facility] Comment on above: Performed By: #### C BC, GFR, MORPH, RFP, DIFF #### [address] [address] Monocyte %, Manual 5.0 % Normal 2.0-13.0 [facility] Comment on above: Performed By: #### C BC, GFR, MORPH, RFP, DIFF #### [address] [address] Monocyte, Abs Manual 0.3 10 3/mcL Normal 0.1-1.4 [facility] Comment on above: Performed By: #### C BC, GFR, MORPH, RFP, DIFF #### [address] [address] Neutrophil %, Manual 80.0 % High 50.0-75.0 [facility] Comment on above: Performed By: #### C BC, GFR, MORPH, RFP, DIFF #### [address] [address] Neutrophil, Abs Manual 5.1 10 3/mcL Normal 2.3-8.1 [facility] Comment on above: Performed By: #### C BC, GFR, MORPH, RFP, DIFF #### [address] [address] Nucleated RBC 0.0 /100 WBC Normal [facility] Comment on above: Performed By: #### C BC, GFR, MORPH, RFP, DIFF #### [address] [address] .Morphon 03-20-2025 Anisocytosis Ql (Bld) 2+ Normal [facility] Comment on above: Performed By: #### C BC, GFR, MORPH, RFP, DIFF #### [place] [address] Microcytosis 2+ Normal [facility] Comment on above: Performed By: #### C BC, GFR, MORPH, RFP, DIFF #### [place] [address] Ovalocytes 2+ [facility] [place] [facility] Comment on above: Performed By: #### C BC, GFR, MORPH, RFP, DIFF #### [place] [address] Platelet Clumps Few Normal [facility] Comment on above: Performed By: #### C BC, GFR, MORPH, RFP, DIFF #### [place] [address] Platelet Estimate Normal [facility] [place] [facility] Comment on above: Performed By: #### C BC, GFR, MORPH, RFP, DIFF #### [place] [address] Poik 1+ [facility] Comment on above: Performed By: #### C BC, GFR, MORPH, RFP, DIFF #### [place] [address] Polychrom 1+ [facility] Comment on above: Performed By: #### C BC, GFR, MORPH, RFP, DIFF #### [place] [address] CBCon 03-20-2025 Platelet 174 10 3/mcL Normal 150-450 [facility] Comment on above: Order Comment: Speci men clotted. Called Crissy from venipuncture for recollect. 2025 05:24:36 EDT Performed By: #### C BC, GFR, MORPH, RFP, DIFF #### [place] [address] Platelet mean volume (Bld) [Entitic vol] 9.4 fL Normal 6.6-10.5 [facility] Comment on above: Order Comment: Speci men clotted. Called Crissy from venipuncture for recollect. 2025 05:24:36 EDT Performed By: #### C BC, GFR, MORPH, RFP, DIFF #### [address] [address] .GFRon 2025 Estimated Glomerular Filtration Rate 15 ml/min/1.73sqm Normal [facility] Comment on above: Result Comment: [...] C BC, GFR, MORPH, RFP, DIFF #### [place] [address] CBCon 2025 Erythrocyte distribution width (RBC) [Ratio] 26.1 % High 11.5-15.5 [facility] Comment on above: Order Comment: Speci men clotted. Called Crissy from venipuncture for recollect. 2025 05:24:36 EDT Performed By: #### C BC, GFR, MORPH, RFP, DIFF #### [place] [address] Hematocrit (Bld) [Volume fraction] 27.6 % Low 34.0-46.0 [facility] Comment on above: Order Comment: Speci men clotted. Called Crissy from venipuncture for recollect. 2025 05:24:36 EDT Performed By: #### C BC, GFR, MORPH, RFP, DIFF #### [place] [address] Hgb 8.7 G/dL Low 12.0-16.0 [facility] Comment on above: Order Comment: Speci men clotted. Called Crissy from venipuncture for recollect. 2025 05:24:36 EDT Performed By: #### C BC, GFR, MORPH, RFP, DIFF #### [place] [address] MCH (RBC) [Entitic mass] 22.4 pg Low 27.0-33.0 [facility] Comment on above: Order Comment: Speci men clotted. Called Crissy from venipuncture for recollect. 2025 05:24:36 EDT Performed By: #### C BC, GFR, MORPH, RFP, DIFF #### [place] [address] MCHC 31.4 G/dL Low 32.0-36.0 [facility] Comment on above: Order Comment: Speci men clotted. Called Crissy from venipuncture for recollect. 2025 05:24:36 EDT Performed By: #### C BC, GFR, MORPH, RFP, DIFF #### [place] [address] MCV (RBC) [Entitic vol] 71.3 fL Low 80.0-99.0 [facility] Comment on above: Order Comment: Speci men clotted. Called Crissy from venipuncture for recollect. 2025 05:24:36 EDT Performed By: #### C BC, GFR, MORPH, RFP, DIFF #### [place] [address] RBC 3.87 10 6/mcL Low 4.10-5.30 [facility] Comment on above: Order Comment: Speci men clotted. Called Crissy from venipuncture for recollect. 2025 05:24:36 EDT Performed By: #### C BC, GFR, MORPH, RFP, DIFF #### [place] [address] WBC 6.4 10 3/mcL Normal 4.5-10.8 [facility] Comment on above: Order Comment: Speci men clotted. Called Crissy from venipuncture for recollect. 2025 05:24:36 EDT Performed By: #### C BC, GFR, MORPH, RFP, DIFF #### [address] [address] RFPon 2025 Albumin Level 2.2 G/dL Low 3.2-4.8 [facility] Comment on above: Performed By: #### C BC, GFR, MORPH, RFP, DIFF #### [address] [address] BUN/Creatinine Ratio 30.0 ratio High 10.0-22.0 [facility] Comment on above: Performed By: #### C BC, GFR, MORPH, RFP, DIFF #### [address] [address] Calcium [Mass/Vol] 8.3 mg/dL Low 8.7-10.4 [facility] Comment on above: Performed By: #### C BC, GFR, MORPH, RFP, DIFF #### [address] [address] Chloride [Moles/Vol] 93 mmol/L Low 98-110 [facility] Comment on above: Performed By: #### C BC, GFR, MORPH, RFP, DIFF #### [address] [address] CO2 [Moles/Vol] 21 mmol/L Low 22-32 [facility] Comment on above: Performed By: #### C BC, GFR, MORPH, RFP, DIFF #### [address] [address] Creatinine [Mass/Vol] 3.03 mg/dL High 0.50-1.20 [facility] Comment on above: Result Comment: Test ing performed on [employer] analyzer using enzymatic creatinine methodology. Performed By: #### C BC, GFR, MORPH, RFP, DIFF #### [address] [address] Electrolyte Balance 14.0 mEq/L Normal 4.0-15.0 [facility] Comment on above: Performed By: #### C BC, GFR, MORPH, RFP, DIFF #### [address] [address] Glucose [Mass/Vol] 185 mg/dL High 82-115 [facility] Comment on above: Performed By: #### C BC, GFR, MORPH, RFP, DIFF #### [address] [address] Phosphate [Mass/Vol] 6.6 mg/dL High 2.4-5.1 [facility] Comment on above: Performed By: #### C BC, GFR, MORPH, RFP, DIFF #### [address] [address] Potassium [Moles/Vol] 4.5 mmol/L Normal 3.5-5.0 [facility] Comment on above: Performed By: #### C BC, GFR, MORPH, RFP, DIFF #### [address] [address] Sodium [Moles/Vol] 128 mmol/L Low 136-145 [facility] Comment on above: Performed By: #### C BC, GFR, MORPH, RFP, DIFF #### [address] [address] Urea nitrogen [Mass/Vol] 91.0 mg/dL High 8.0-22.0 [facility] Comment on above: Performed By: #### C BC, GFR, MORPH, RFP, DIFF #### [address] [address] XR CHEST 1 VIEWon 2025 XR CHEST [...] 2025 9:57:53 AM Ordering Provider: JANAE ZARCO [facility] .GFRon 03-17-2025 Estimated Glomerular Filtration Rate 31 ml/min/1.73sqm [facility] Comment on above: Result Comment: Stages [...] #### M G, RFP, BMP, GFR #### [address] [address] BMPon 03-17-2025 BUN/Creatinine Ratio 46.8 ratio High 10.0-22.0 [facility] Comment on above: Performed By: #### M G, RFP, BMP, GFR #### [address] [address] Calcium [Mass/Vol] 7.7 mg/dL Low 8.7-10.4 [facility] Comment on above: Performed By: #### M G, RFP, BMP, GFR #### [address] [address] Chloride [Moles/Vol] 102 mmol/L Normal 98-110 [facility] Comment on above: Performed By: #### M G, RFP, BMP, GFR #### [address] [address] CO2 [Moles/Vol] 26 mmol/L Normal 22-32 [facility] Comment on above: Performed By: #### M G, RFP, BMP, GFR #### [address] [address] Creatinine [Mass/Vol] 1.71 mg/dL High 0.50-1.20 [facility] Comment on above: Result Comment: Test ing performed on [employer] analyzer using enzymatic creatinine methodology. Performed By: #### M G, RFP, BMP, GFR #### [address] [address] Electrolyte Balance 9.0 mEq/L Normal 4.0-15.0 [facility] Comment on above: Performed By: #### M G, RFP, BMP, GFR #### [place] [id number] Glucose [Mass/Vol] 231 mg/dL High 82-115 [facility] Comment on above: Performed By: #### M G, RFP, BMP, GFR #### [place] [id number] Potassium [Moles/Vol] 3.8 mmol/L Normal 3.5-5.0 [facility] Comment on above: Performed By: #### M G, RFP, BMP, GFR #### [place] [id number] Sodium [Moles/Vol] 137 mmol/L Normal 136-145 [facility] Comment on above: Performed By: #### M G, RFP, BMP, GFR #### [place] [phone] Urea nitrogen [Mass/Vol] 80.0 mg/dL High 8.0-22.0 [facility] Comment on above: Performed By: #### M G, RFP, BMP, GFR #### [place] [id number] HBSABon 03-17-2025 Hep B Surf Ab <3.1 Low >=10.0 [facility] Comment on above: Result Comment: [...] C BC, GFR, MORPH, RFP, DIFF #### [address] [address] HBSAGon 03-17-2025 Hep B Surf Ag Non-Reactive Normal Non-Reactive [facility] Comment on above: Performed By: #### C BC, GFR, MORPH, RFP, DIFF #### [address] [address] .GFRon 03-16-2025 Estimated Glomerular Filtration Rate 27 ml/min/1.73sqm Normal [facility] Comment on above: Result Comment: [...] #### M G, RFP, BMP, GFR #### [place] [address] RFPon 03-16-2025 Albumin Level 2.4 G/dL Low 3.2-4.8 [facility] Comment on above: Performed By: #### M G, RFP, BMP, GFR #### [address] [address] BUN/Creatinine Ratio 57.0 ratio High 10.0-22.0 [facility] Comment on above: Performed By: #### M G, RFP, BMP, GFR #### [address] [address] Calcium [Mass/Vol] 8.7 mg/dL Normal 8.7-10.4 [facility] Comment on above: Performed By: #### M G, RFP, BMP, GFR #### [address] [address] Chloride [Moles/Vol] 108 mmol/L Normal 98-110 [facility] Comment on above: Performed By: #### M G, RFP, BMP, GFR #### [address] [address] CO2 [Moles/Vol] 24 mmol/L Normal 22-32 [facility] Comment on above: Performed By: #### M G, RFP, BMP, GFR #### [address] [address] Creatinine [Mass/Vol] 1.93 mg/dL High 0.50-1.20 [facility] Comment on above: Result Comment: Test ing performed on [employer] analyzer using enzymatic creatinine methodology. Performed By: #### M G, RFP, BMP, GFR #### [address] [address] Electrolyte Balance 8.0 mEq/L Normal 4.0-15.0 [facility] Comment on above: Performed By: #### M G, RFP, BMP, GFR #### [address] [address] Glucose [Mass/Vol] 323 mg/dL High 82-115 [facility] Comment on above: Performed By: #### M G, RFP, BMP, GFR #### [address] [address] Phosphate [Mass/Vol] 5.2 mg/dL High 2.4-5.1 [facility] Comment on above: Performed By: #### M G, RFP, BMP, GFR #### [address] [address] Potassium [Moles/Vol] 5.0 mmol/L Normal 3.5-5.0 [facility] Comment on above: Performed By: #### M G, RFP, BMP, GFR #### [address] [address] Sodium [Moles/Vol] 140 mmol/L Normal 136-145 [facility] Comment on above: Performed By: #### M G, RFP, BMP, GFR #### [address] [address] Urea nitrogen [Mass/Vol] 110.0 mg/dL High 8.0-22.0 [facility] Comment on above: Performed By: #### M G, RFP, BMP, GFR #### [address] [address] MGon 03-15-2025 Magnesium [Mass/Vol] 2.1 mg/dL Normal 1.6-2.4 [facility] Comment on above: Performed By: #### C BC, GFR, MORPH, RFP, DIFF #### [address] [address] .Auto Diffon 03-14-2025 Basophil, Absolute 0.1 10 3/mcL Normal 0.0-0.3 [facility] Comment on above: Performed By: #### M G, RFP, BMP, GFR #### [address] [address] Basophils/100 WBC (Bld) 0.6 % Normal 0.0-2.5 [facility] Comment on above: Performed By: #### M G, RFP, BMP, GFR #### [address] [address] Eosinophil, Absolute 0.0 10 3/mcL Normal 0.0-0.7 [facility] Comment on above: Performed By: #### M G, RFP, BMP, GFR #### [address] [address] Eosinophils/100 WBC (Bld) 0.4 % Normal 0.0-6.0 [facility] Comment on above: Performed By: #### M G, RFP, BMP, GFR #### [address] [address] Lymphocyte, Absolute 0.3 10 3/mcL Low 0.9-4.3 [facility] Comment on above: Performed By: #### M G, RFP, BMP, GFR #### [address] [place], [place] [address] Lymphocytes/100 WBC (Bld) 3.7 % Low 20.0-40.0 [facility] Comment on above: Performed By: #### M G, RFP, BMP, GFR #### [facility] [address] [place] [address] Monocyte, Absolute 0.5 10 3/mcL Normal 0.1-1.4 [facility] Comment on above: Performed By: #### M G, RFP, BMP, GFR #### [address] [address] Monocytes/100 WBC (Bld) 5.7 % Normal 2.0-13.0 [facility] Comment on above: Performed By: #### M G, RFP, BMP, GFR #### [address] [address] Neutrophils/100 WBC (Bld) 89.6 % High 50.0-75.0 [facility] Comment on above: Performed By: #### M G, RFP, BMP, GFR #### [address] [address] .GFRon 03-14-2025 Estimated Glomerular Filtration Rate 34 ml/min/1.73sqm Normal [facility] Comment on above: Result Comment: [...] #### M G, RFP, BMP, GFR #### [facility] [address] [place] [address] .Morphon 03-14-2025 Anisocytosis Ql (Bld) 2+ Normal [facility] Comment on above: Performed By: #### M G, RFP, BMP, GFR #### [place] [address] Microcytosis 2+ Normal [facility] Comment on above: Performed By: #### M G, RFP, BMP, GFR #### [place] [address] Ovalocytes 1+ Normal [facility] Comment on above: Performed By: #### M G, RFP, BMP, GFR #### [place] [address] Platelet Estimate Normal Normal [facility] Comment on above: Performed By: #### M G, RFP, BMP, GFR #### [place] [address] Poik 1+ Normal [facility] Comment on above: Performed By: #### M G, RFP, BMP, GFR #### [place] [address] .NEUABSon 03-14-2025 Neutrophil, Absolute 7.4 10 3/mcL Normal 2.3-8.1 [facility] Comment on above: Performed By: #### M G, RFP, BMP, GFR #### [place] [address] CBCon 03-14-2025 Platelet 200 10 3/mcL Normal 150-450 [facility] Comment on above: Performed By: #### M G, RFP, BMP, GFR #### [place] [address] Platelet mean volume (Bld) [Entitic vol] 9.5 fL Normal 6.6-10.5 [facility] Comment on above: Performed By: #### M G, RFP, BMP, GFR #### [place] [address] Erythrocyte distribution width (RBC) [Ratio] 25.5 % High 11.5-15.5 [facility] Comment on above: Performed By: #### M G, RFP, BMP, GFR #### [place] [address] Hematocrit (Bld) [Volume fraction] 31.7 % Low 34.0-46.0 [facility] Comment on above: Performed By: #### M G, RFP, BMP, GFR #### [place] [address] Hgb 9.8 G/dL Low 12.0-16.0 [facility] Comment on above: Performed By: #### M G, RFP, BMP, GFR #### [place] [address] MCH (RBC) [Entitic mass] 22.8 pg Low 27.0-33.0 [facility] Comment on above: Performed By: #### M G, RFP, BMP, GFR #### [place] [address] MCHC 31.0 G/dL Low 32.0-36.0 [facility] Comment on above: Performed By: #### M G, RFP, BMP, GFR #### [place] [address] MCV (RBC) [Entitic vol] 73.7 fL Low 80.0-99.0 [facility] Comment on above: Performed By: #### M G, RFP, BMP, GFR #### [place] [address] RBC 4.31 10 6/mcL Normal 4.10-5.30 [facility] Comment on above: Performed By: #### M G, RFP, BMP, GFR #### [place] [address] WBC 8.3 10 3/mcL Normal 4.5-10.8 [facility] Comment on above: Performed By: #### M G, RFP, BMP, GFR #### [place] [address] RFPon 03-14-2025 Albumin Level 2.5 G/dL Low 3.2-4.8 [facility] Comment on above: Performed By: #### M G, RFP, BMP, GFR #### [place] [address] BUN/Creatinine Ratio 52.9 ratio High 10.0-22.0 [facility] Comment on above: Performed By: #### M G, RFP, BMP, GFR #### [address] [address] Calcium [Mass/Vol] 8.5 mg/dL Low 8.7-10.4 [facility] Comment on above: Performed By: #### M G, RFP, BMP, GFR #### [address] [address] Chloride [Moles/Vol] 113 mmol/L High 98-110 [facility] Comment on above: Performed By: #### M G, RFP, BMP, GFR #### [address] [address] CO2 [Moles/Vol] 22 mmol/L Normal 22-32 [facility] Comment on above: Performed By: #### M G, RFP, BMP, GFR #### [address] [address] Creatinine [Mass/Vol] 1.57 mg/dL High 0.50-1.20 [facility] Comment on above: Result Comment: Test ing performed on [employer] analyzer using enzymatic creatinine methodology. Performed By: #### M G, RFP, BMP, GFR #### [address] [address] Electrolyte Balance 12.0 mEq/L Normal 4.0-15.0 [facility] Comment on above: Performed By: #### M G, RFP, BMP, GFR #### [address] [address] Glucose [Mass/Vol] 346 mg/dL High 82-115 [facility] Comment on above: Performed By: #### M G, RFP, BMP, GFR #### [address] [address] Phosphate [Mass/Vol] 2.8 mg/dL Normal 2.4-5.1 [facility] Comment on above: Performed By: #### M G, RFP, BMP, GFR #### [address] [address] Potassium [Moles/Vol] 4.2 mmol/L Normal 3.5-5.0 [facility] Comment on above: Performed By: #### M G, RFP, BMP, GFR #### [facility] [address] [place] [address] Sodium [Moles/Vol] 147 mmol/L High 136-145 [facility] Comment on above: Performed By: #### M G, RFP, BMP, GFR #### [facility] [address] [place] [address] Urea nitrogen [Mass/Vol] 83.0 mg/dL High 8.0-22.0 [facility] Comment on above: Performed By: #### M G, RFP, BMP, GFR #### [facility] [address] [place] [address] XR CHEST 1 VIEWon 03-14-2025 XR CHEST [...] 03/14/2025 4:20:34 PM Ordering Provider: BISHNU SALAMANCA [facility] .GFRon 03-13-2025 Estimated Glomerular Filtration Rate 41 ml/min/1.73sqm [facility] Comment on above: Result Comment: Stages [...] C BC, GFR, MORPH, RFP, DIFF #### [address] [address] BMPon 03-13-2025 BUN/Creatinine Ratio 49.6 ratio High 10.0-22.0 [facility] Comment on above: Performed By: #### C BC, GFR, MORPH, RFP, DIFF #### [address] [address] Calcium [Mass/Vol] 8.4 mg/dL Low 8.7-10.4 [facility] Comment on above: Performed By: #### C BC, GFR, MORPH, RFP, DIFF #### [address] [address] Chloride [Moles/Vol] 113 mmol/L High 98-110 [facility] Comment on above: Performed By: #### C BC, GFR, MORPH, RFP, DIFF #### [address] [address] CO2 [Moles/Vol] 23 mmol/L Normal 22-32 [facility] Comment on above: Performed By: #### C BC, GFR, MORPH, RFP, DIFF #### [address] [address] Creatinine [Mass/Vol] 1.35 mg/dL High 0.50-1.20 [facility] Comment on above: Result Comment: Test ing performed on [employer] analyzer using enzymatic creatinine methodology. Performed By: #### C BC, GFR, MORPH, RFP, DIFF #### [address] [address] Electrolyte Balance 11.0 mEq/L Normal 4.0-15.0 [facility] Comment on above: Performed By: #### C BC, GFR, MORPH, RFP, DIFF #### [address] [address] Glucose [Mass/Vol] 306 mg/dL High 82-115 [facility] Comment on above: Performed By: #### C BC, GFR, MORPH, RFP, DIFF #### [address] [address] Potassium [Moles/Vol] 3.9 mmol/L Normal 3.5-5.0 [facility] Comment on above: Performed By: #### C BC, GFR, MORPH, RFP, DIFF #### [address] [address] Sodium [Moles/Vol] 147 mmol/L High 136-145 [facility] Comment on above: Performed By: #### C BC, GFR, MORPH, RFP, DIFF #### [address] [address] Urea nitrogen [Mass/Vol] 67.0 mg/dL High 8.0-22.0 [facility] Comment on above: Performed By: #### C BC, GFR, MORPH, RFP, DIFF #### [address] [address] .Auto Diffon 03-12-2025 Basophil, Absolute 0.1 10 3/mcL Normal 0.0-0.3 [facility] Comment on above: Performed By: #### C BC, GFR, MORPH, RFP, DIFF #### [address] [address] Basophils/100 WBC (Bld) 0.7 % Normal 0.0-2.5 [facility] Comment on above: Performed By: #### C BC, GFR, MORPH, RFP, DIFF #### [address] [address] Eosinophil, Absolute 0.2 10 3/mcL Normal 0.0-0.7 [facility] Comment on above: Performed By: #### C BC, GFR, MORPH, RFP, DIFF #### [address] [address] Eosinophils/100 WBC (Bld) 2.9 % Normal 0.0-6.0 [facility] Comment on above: Performed By: #### C BC, GFR, MORPH, RFP, DIFF #### [place] [id number] [place] [address] Lymphocyte, Absolute 1.0 10 3/mcL Normal 0.9-4.3 [facility] Comment on above: Performed By: #### C BC, GFR, MORPH, RFP, DIFF #### [facility] [address] [place] [address] Lymphocytes/100 WBC (Bld) 12.1 % Low 20.0-40.0 [facility] Comment on above: Performed By: #### C BC, GFR, MORPH, RFP, DIFF #### [address] [address] Monocyte, Absolute 1.1 10 3/mcL Normal 0.1-1.4 [facility] Comment on above: Performed By: #### C BC, GFR, MORPH, RFP, DIFF #### [address] [address] Monocytes/100 WBC (Bld) 14.2 % High 2.0-13.0 [facility] Comment on above: Performed By: #### C BC, GFR, MORPH, RFP, DIFF #### [address] [address] Neutrophils/100 WBC (Bld) 70.1 % Normal 50.0-75.0 [facility] Comment on above: Performed By: #### C BC, GFR, MORPH, RFP, DIFF #### [address] [address] .GFRon 03-12-2025 Estimated Glomerular Filtration Rate 43 ml/min/1.73sqm Normal [facility] Comment on above: Result Comment: [...] the eGFR calculation was updated to the 2021 CKD-EPI creatinine equation without a race factor to calculate the eGFR results. Performed By: #### C BC, GFR, MORPH, RFP, DIFF #### [place] [address] .NEUABSon 03-12-2025 Neutrophil, Absolute 5.6 10 3/mcL Normal 2.3-8.1 [facility] Comment on above: Performed By: #### C BC, GFR, MORPH, RFP, DIFF #### [place] [id number] BMPon 03-12-2025 BUN/Creatinine Ratio 49.6 ratio High 10.0-22.0 [facility] Comment on above: Performed By: #### C BC, GFR, MORPH, RFP, DIFF #### [place] [address] Calcium [Mass/Vol] 8.2 mg/dL Low 8.7-10.4 [facility] Comment on above: Performed By: #### C BC, GFR, MORPH, RFP, DIFF #### [place] [address] Chloride [Moles/Vol] 112 mmol/L High 98-110 [facility] Comment on above: Performed By: #### C BC, GFR, MORPH, RFP, DIFF #### [place] [address] CO2 [Moles/Vol] 21 mmol/L Low 22-32 [facility] Comment on above: Performed By: #### C BC, GFR, MORPH, RFP, DIFF #### [place] [address] Creatinine [Mass/Vol] 1.29 mg/dL High 0.50-1.20 [facility] Comment on above: Result Comment: Test ing performed on [employer] analyzer using enzymatic creatinine methodology. Performed By: #### C BC, GFR, MORPH, RFP, DIFF #### [place] [address] Electrolyte Balance 13.0 mEq/L Normal 4.0-15.0 [facility] Comment on above: Performed By: #### C BC, GFR, MORPH, RFP, DIFF #### [address] [address] Glucose [Mass/Vol] 317 mg/dL High 82-115 [facility] Comment on above: Performed By: #### C BC, GFR, MORPH, RFP, DIFF #### [address] [address] Potassium [Moles/Vol] 3.9 mmol/L Normal 3.5-5.0 [facility] Comment on above: Performed By: #### C BC, GFR, MORPH, RFP, DIFF #### [address] [address] Sodium [Moles/Vol] 146 mmol/L High 136-145 [facility] Comment on above: Performed By: #### C BC, GFR, MORPH, RFP, DIFF #### [address] [address] Urea nitrogen [Mass/Vol] 64.0 mg/dL High 8.0-22.0 [facility] Comment on above: Performed By: #### C BC, GFR, MORPH, RFP, DIFF #### [address] [address] CBCon 03-12-2025 Erythrocyte distribution width (RBC) [Ratio] 22.3 % High 11.5-15.5 [facility] Comment on above: Performed By: #### C BC, GFR, MORPH, RFP, DIFF #### [address] [address] Hematocrit (Bld) [Volume fraction] 31.5 % Low 34.0-46.0 [facility] Comment on above: Performed By: #### C BC, GFR, MORPH, RFP, DIFF #### [address] [address] Hgb 9.8 G/dL Low 12.0-16.0 [facility] Comment on above: Performed By: #### C BC, GFR, MORPH, RFP, DIFF #### [address] [address] MCH (RBC) [Entitic mass] 22.5 pg Low 27.0-33.0 [facility] Comment on above: Performed By: #### C BC, GFR, MORPH, RFP, DIFF #### [address] [address] MCHC 31.1 G/dL Low 32.0-36.0 [facility] Comment on above: Performed By: #### C BC, GFR, MORPH, RFP, DIFF #### [address] [address] MCV (RBC) [Entitic vol] 72.3 fL Low 80.0-99.0 [facility] Comment on above: Performed By: #### C BC, GFR, MORPH, RFP, DIFF #### [place] [id number] Platelet 190 10 3/mcL Normal 150-450 [facility] Comment on above: Performed By: #### C BC, GFR, MORPH, RFP, DIFF #### [place] [address] Platelet mean volume (Bld) [Entitic vol] 9.2 fL Normal 6.6-10.5 [facility] Comment on above: Performed By: #### C BC, GFR, MORPH, RFP, DIFF #### [place] [address] RBC 4.36 10 6/mcL Normal 4.10-5.30 [facility] Comment on above: Performed By: #### C BC, GFR, MORPH, RFP, DIFF #### [place] [id number] WBC 8.0 10 3/mcL Normal 4.5-10.8 [facility] Comment on above: Performed By: #### C BC, GFR, MORPH, RFP, DIFF #### [address] [address] XR CHEST 1 VIEWon 03-12-2025 XR CHEST [...] 03/12/2025 9:38:23 AM Ordering Provider: BISHNU SALAMANCA [facility] .GFRon 03-11-2025 Estimated Glomerular Filtration Rate 43 ml/min/1.73sqm [facility] [place] [facility] Comment on above: Result Comment: Stages [...] #### M G, RFP, BMP, GFR #### [address] [address] BMPon 03-11-2025 BUN/Creatinine Ratio 47.3 ratio High 10.0-22.0 [facility] Comment on above: Performed By: #### M G, RFP, BMP, GFR #### [address] [address] Calcium [Mass/Vol] 7.8 mg/dL Low 8.7-10.4 [facility] Comment on above: Performed By: #### M G, RFP, BMP, GFR #### [address] [address] Chloride [Moles/Vol] 110 mmol/L Normal 98-110 [facility] Comment on above: Performed By: #### M G, RFP, BMP, GFR #### [address] [address] CO2 [Moles/Vol] 23 mmol/L Normal 22-32 [facility] Comment on above: Performed By: #### M G, RFP, BMP, GFR #### [address] [address] Creatinine [Mass/Vol] 1.29 mg/dL High 0.50-1.20 [facility] Comment on above: Result Comment: Test ing performed on [employer] analyzer using enzymatic creatinine methodology. Performed By: #### M G, RFP, BMP, GFR #### [address] [address] Electrolyte Balance 10.0 mEq/L Normal 4.0-15.0 [facility] Comment on above: Performed By: #### M G, RFP, BMP, GFR #### [address] [address] Glucose [Mass/Vol] 371 mg/dL High 82-115 [facility] Comment on above: Performed By: #### M G, RFP, BMP, GFR #### [address] [address] Potassium [Moles/Vol] 3.4 mmol/L Low 3.5-5.0 [facility] Comment on above: Performed By: #### M G, RFP, BMP, GFR #### [address] [address] Sodium [Moles/Vol] 143 mmol/L Normal 136-145 [facility] Comment on above: Performed By: #### M G, RFP, BMP, GFR #### [address] [address] Urea nitrogen [Mass/Vol] 61.0 mg/dL High 8.0-22.0 [facility] Comment on above: Performed By: #### M G, RFP, BMP, GFR #### [address] [address] MGon 03-11-2025 Magnesium [Mass/Vol] 1.8 mg/dL Normal 1.6-2.4 [facility] Comment on above: Performed By: #### M G, RFP, BMP, GFR #### [address] [address] RFPon 03-11-2025 Albumin Level 2.4 G/dL Low 3.2-4.8 [facility] Comment on above: Performed By: #### M G, RFP, BMP, GFR #### [address] [address] Phosphate [Mass/Vol] 2.4 mg/dL Normal 2.4-5.1 [facility] Comment on above: Performed By: #### M G, RFP, BMP, GFR #### [address] [address] .GFRon 03-10-2025 Estimated Glomerular Filtration Rate 41 ml/min/1.73sqm Normal [facility] Comment on above: Result Comment: [...] calculate the eGFR results. Performed By: #### Linda FR, RFP #### [address] [address] BMPon 03-10-2025 BUN/Creatinine Ratio 45.1 ratio High 10.0-22.0 [facility] Comment on above: Performed By: #### G FR, RFP #### [address] [address] Calcium [Mass/Vol] 8.2 mg/dL Low 8.7-10.4 [facility] Comment on above: Performed By: #### G FR, RFP #### [address] [address] Chloride [Moles/Vol] 114 mmol/L High 98-110 [facility] Comment on above: Performed By: #### G FR, RFP #### [address] [address] CO2 [Moles/Vol] 24 mmol/L Normal 22-32 [facility] Comment on above: Performed By: #### G FR, RFP #### [address] [address] Creatinine [Mass/Vol] 1.33 mg/dL High 0.50-1.20 [facility] Comment on above: Result Comment: Test ing performed on [employer] analyzer using enzymatic creatinine methodology. Performed By: #### G FR, RFP #### [address] [address] Electrolyte Balance 11.0 mEq/L Normal 4.0-15.0 [facility] Comment on above: Performed By: #### G FR, RFP #### [address] [address] Glucose [Mass/Vol] 309 mg/dL High 82-115 [facility] Comment on above: Performed By: #### G FR, RFP #### [address] [address] Potassium [Moles/Vol] 3.2 mmol/L Low 3.5-5.0 [facility] Comment on above: Performed By: #### G FR, RFP #### [address] [address] Sodium [Moles/Vol] 149 mmol/L High 136-145 [facility] Comment on above: Performed By: #### G FR, RFP #### [address] [address] Urea nitrogen [Mass/Vol] 60.0 mg/dL High 8.0-22.0 [facility] Comment on above: Performed By: #### G FR, RFP #### [address] [address] MGon 03-10-2025 Magnesium [Mass/Vol] 1.7 mg/dL Normal 1.6-2.4 [facility] Comment on above: Performed By: #### G FR, RFP #### [address] [address] PHOSon 03-10-2025 Phosphate [Mass/Vol] 1.1 mg/dL Critically abnormal 2.4-5.1 [facility] Comment on above: Order Comment: vrb- called critical Phos to RN Tamar Blankenshipjamison 03/10/2025 04:02:07 EDT SAS Performed By: #### M G, RFP, BMP, GFR #### [facility] [address] [place] [address] .GFRon 03-09-2025 Estimated Glomerular Filtration Rate 42 ml/min/1.73sqm Normal [facility] Comment on above: Result Comment: [...] C BC, GFR, MORPH, RFP, DIFF #### [address] [address] BMPon 03-09-2025 BUN/Creatinine Ratio 37.4 ratio High 10.0-22.0 [facility] Comment on above: Performed By: #### C BC, GFR, MORPH, RFP, DIFF #### [address] [address] Calcium [Mass/Vol] 8.8 mg/dL Normal 8.7-10.4 [facility] Comment on above: Performed By: #### C BC, GFR, MORPH, RFP, DIFF #### [address] [address] Chloride [Moles/Vol] 117 mmol/L High 98-110 [facility] Comment on above: Performed By: #### C BC, GFR, MORPH, RFP, DIFF #### [address] [address] CO2 [Moles/Vol] 28 mmol/L Normal 22-32 [facility] Comment on above: Performed By: #### C BC, GFR, MORPH, RFP, DIFF #### [address] [address] Creatinine [Mass/Vol] 1.31 mg/dL High 0.50-1.20 [facility] Comment on above: Result Comment: Test ing performed on [employer] analyzer using enzymatic creatinine methodology. Performed By: #### C BC, GFR, MORPH, RFP, DIFF #### [place] [address] Electrolyte Balance 8.0 mEq/L Normal 4.0-15.0 [facility] Comment on above: Performed By: #### C BC, GFR, MORPH, RFP, DIFF #### [place] [address] Glucose [Mass/Vol] 256 mg/dL High 82-115 [facility] Comment on above: Performed By: #### C BC, GFR, MORPH, RFP, DIFF #### [place] [address] Potassium [Moles/Vol] 3.5 mmol/L Normal 3.5-5.0 [facility] Comment on above: Performed By: #### C BC, GFR, MORPH, RFP, DIFF #### [place] [address] Sodium [Moles/Vol] 153 mmol/L High 136-145 [facility] Comment on above: Performed By: #### C BC, GFR, MORPH, RFP, DIFF #### [place] [address] Urea nitrogen [Mass/Vol] 49.0 mg/dL High 8.0-22.0 [facility] Comment on above: Performed By: #### C BC, GFR, MORPH, RFP, DIFF #### [address] [address] .Auto Diffon 03-08-2025 Basophil, Absolute 0.1 10 3/mcL Normal 0.0-0.3 [facility] Comment on above: Performed By: #### C BC, GFR, MORPH, RFP, DIFF #### [address] [address] Basophils/100 WBC (Bld) 0.9 % Normal 0.0-2.5 [facility] Comment on above: Performed By: #### C BC, GFR, MORPH, RFP, DIFF #### [address] [address] Eosinophil, Absolute 0.2 10 3/mcL Normal 0.0-0.7 [facility] Comment on above: Performed By: #### C BC, GFR, MORPH, RFP, DIFF #### [address] [address] Eosinophils/100 WBC (Bld) 2.2 % Normal 0.0-6.0 [facility] Comment on above: Performed By: #### C BC, GFR, MORPH, RFP, DIFF #### [address] [address] Lymphocyte, Absolute 0.7 10 3/mcL Low 0.9-4.3 [facility] Comment on above: Performed By: #### C BC, GFR, MORPH, RFP, DIFF #### [address] [address] Lymphocytes/100 WBC (Bld) 7.3 % Low 20.0-40.0 [facility] Comment on above: Performed By: #### C BC, GFR, MORPH, RFP, DIFF #### [address] [address] Monocyte, Absolute 0.7 10 3/mcL Normal 0.1-1.4 [facility] Comment on above: Performed By: #### C BC, GFR, MORPH, RFP, DIFF #### [address] [address] Monocytes/100 WBC (Bld) 6.7 % Normal 2.0-13.0 [facility] Comment on above: Performed By: #### C BC, GFR, MORPH, RFP, DIFF #### [address] [address] Neutrophils/100 WBC (Bld) 82.9 % High 50.0-75.0 [facility] Comment on above: Performed By: #### C BC, GFR, MORPH, RFP, DIFF #### [address] [address] .GFRon 03-08-2025 Estimated Glomerular Filtration Rate 40 ml/min/1.73sqm Normal [facility] Comment on above: Result Comment: [...] C BC, GFR, MORPH, RFP, DIFF #### [address] [address] .NEUABSon 03-08-2025 Neutrophil, Absolute 8.4 10 3/mcL High 2.3-8.1 [facility] Comment on above: Performed By: #### C BC, GFR, MORPH, RFP, DIFF #### [address] [address] Basic Metabolic Profile (BMP )on 03-08-2025 BUN Normal 4-19 [facility] Comment on above: Result Comment: Canc elled via OM: Order cancelled - Patient discharged Performed By: #### L 500.2500, L100.0100 ####[facility] [address] [place], [address] BUN/CRE Normal 10-20 [facility] Comment on above: Result Comment: Canc elled via OM: Order cancelled - Patient discharged Performed By: #### L 500.2500, L100.0100 ####[facility] [address] [place], [address] Calcium Normal 7.6-11.0 [facility] Comment on above: Result Comment: Canc elled via OM: Order cancelled - Patient discharged Performed By: #### L 500.2500, L100.0100 ####[facility] [address] [place], [address] CL Normal 98-108 [facility] Comment on above: Result Comment: Canc elled via OM: Order cancelled - Patient discharged Performed By: #### L 500.2500, L100.0100 ####[facility] [address] [place], [address] CO2 Normal 21.0-32.0 [facility] Comment on above: Result Comment: Canc elled via OM: Order cancelled - Patient discharged Performed By: #### L 500.2500, L100.0100 ####[facility] [address] [place], [address] CREAT,SERUM Normal 0.70-1.20 [facility] Comment on above: Result Comment: Canc elled via OM: Order cancelled - Patient discharged Performed By: #### L 500.2500, L100.0100 ####[facility] [address] [place], [address] eGFR Normal >60 [facility] Comment on above: Result Comment: Canc elled via OM: Order cancelled - Patient discharged Performed By: #### L 500.2500, L100.0100 ####[facility] [address] [place], [address] GAP Normal 5-15 [facility] Comment on above: Result Comment: Canc elled via OM: Order cancelled - Patient discharged Performed By: #### L 500.2500, L100.0100 ####[facility] [address] [place], [address] GLU Normal 70-99 [facility] Comment on above: Result Comment: Canc elled via OM: Order cancelled - Patient discharged Performed By: #### L 500.2500, L100.0100 ####[facility] [address] [place], [address] Potassium Normal 3.3-5.1 [facility] Comment on above: Result Comment: Canc elled via OM: Order cancelled - Patient discharged Performed By: #### L 500.2500, L100.0100 ####[facility] [address] [place], [address] Basic Metabolic Profile (BMP) Normal 133-145 [facility] Comment on above: Result Comment: Canc elled via OM: Order cancelled - Patient discharged Performed By: #### L 500.2500, L100.0100 ####[facility] [address] [place], [address] CBCon 03-08-2025 Erythrocyte distribution width (RBC) [Ratio] 22.3 % High 11.5-15.5 [facility] Comment on above: Performed By: #### C BC, GFR, MORPH, RFP, DIFF #### [facility] [address] [place] [address] Hematocrit (Bld) [Volume fraction] 31.9 % Low 34.0-46.0 [facility] Comment on above: Performed By: #### C BC, GFR, MORPH, RFP, DIFF #### [facility] [address] [place] [address] Hgb 9.9 G/dL Low 12.0-16.0 [facility] Comment on above: Performed By: #### C BC, GFR, MORPH, RFP, DIFF #### [facility] [address] [place] [address] MCH (RBC) [Entitic mass] 22.6 pg Low 27.0-33.0 [facility] Comment on above: Performed By: #### C BC, GFR, MORPH, RFP, DIFF #### [address] [address] MCHC 31.1 G/dL Low 32.0-36.0 [facility] Comment on above: Performed By: #### C BC, GFR, MORPH, RFP, DIFF #### [address] [address] MCV (RBC) [Entitic vol] 72.5 fL Low 80.0-99.0 [facility] Comment on above: Performed By: #### C BC, GFR, MORPH, RFP, DIFF #### [address] [address] Platelet 228 10 3/mcL Normal 150-450 [facility] Comment on above: Performed By: #### C BC, GFR, MORPH, RFP, DIFF #### [address] [address] Platelet mean volume (Bld) [Entitic vol] 8.5 fL Normal 6.6-10.5 [facility] Comment on above: Performed By: #### C BC, GFR, MORPH, RFP, DIFF #### [address] [address] RBC 4.41 10 6/mcL Normal 4.10-5.30 [facility] Comment on above: Performed By: #### C BC, GFR, MORPH, RFP, DIFF #### [address] [address] WBC 10.1 10 3/mcL Normal 4.5-10.8 [facility] Comment on above: Performed By: #### C BC, GFR, MORPH, RFP, DIFF #### [address] [address] CBC W/Diff, Automatedon 02-25 Absolute Neut Normal 2.0-7.7 [facility] Comment on above: Result Comment: Canc elled via OM: Order cancelled - Patient discharged Performed By: #### L 500.2500, L100.0100 ####[facility] [address] [place], [address] HCT Normal 37-47 [facility] Comment on above: Result Comment: Canc elled via OM: Order cancelled - Patient discharged Performed By: #### L 500.2500, L100.0100 ####[facility] [address] [place], [address] HGB Normal 12.0-15.0 [facility] Comment on above: Result Comment: Canc elled via OM: Order cancelled - Patient discharged Performed By: #### L 500.2500, L100.0100 ####[facility] [address] [place], [address] MCH Normal 27.0-32.0 [facility] Comment on above: Result Comment: Canc elled via OM: Order cancelled - Patient discharged Performed By: #### L 500.2500, L100.0100 ####[facility] [address] [place], [address] MCHC Normal 32-36 [facility] Comment on above: Result Comment: Canc elled via OM: Order cancelled - Patient discharged Performed By: #### L 500.2500, L100.0100 ####[facility] [address] [place], [address] MCV Normal 81-99 [facility] Comment on above: Result Comment: Canc elled via OM: Order cancelled - Patient discharged Performed By: #### L 500.2500, L100.0100 ####[facility] [address] [place], [address] NEUT% Normal 47-70 [facility] Comment on above: Result Comment: Canc elled via OM: Order cancelled - Patient discharged Performed By: #### L 500.2500, L100.0100 ####[facility] [address] [place], [address] PLT Normal 150-450 [facility] Comment on above: Result Comment: Canc elled via OM: Order cancelled - Patient discharged Performed By: #### L 500.2500, L100.0100 ####[facility] [address] [place], [address] RBC Normal 4.2-5.4 [facility] Comment on above: Result Comment: Canc elled via OM: Order cancelled - Patient discharged Performed By: #### L 500.2500, L100.0100 ####[facility] [address] [place], [address] RDW CV Normal 11.6-14.6 [facility] Comment on above: Result Comment: Canc elled via OM: Order cancelled - Patient discharged Performed By: #### L 500.2500, L100.0100 ####[facility] [address] [place], [address] RDW SD Normal 35.1-43.9 [facility] Comment on above: Result Comment: Canc elled via OM: Order cancelled - Patient discharged Performed By: #### L 500.2500, L100.0100 ####[facility] [address] [place], [address] WBC Normal 4.4-11.0 [facility] Comment on above: Result Comment: Canc elled via OM: Order cancelled - Patient discharged Performed By: #### L 500.2500, L100.0100 ####[facility] [address] [place], [address] CMPon 03-08-2025 Albumin Level 2.6 G/dL Low 3.2-4.8 [facility] Comment on above: Performed By: #### C BC, GFR, MORPH, RFP, DIFF #### [address] [address] Albumin/Globulin [Mass ratio] 0.7 {ratio} Low 0.9-1.6 [facility] Comment on above: Performed By: #### C BC, GFR, MORPH, RFP, DIFF #### [address] [address] ALP [Catalytic activity/Vol] 57 U/L Normal 38-126 [facility] Comment on above: Performed By: #### C BC, GFR, MORPH, RFP, DIFF #### [address] [address] ALT/SGPT <7 Low 10-49 [facility] Comment on above: Performed By: #### C BC, GFR, MORPH, RFP, DIFF #### [place] [id number] AST [Catalytic activity/Vol] 11 U/L Normal 8-34 [facility] Comment on above: Performed By: #### C BC, GFR, MORPH, RFP, DIFF #### [place] [id number] Bili Total 0.30 mg/dL Normal 0.20-1.20 [facility] Comment on above: Result Comment: Use of this assay is not recommended for patients undergoing treatment with eltrombopag due to the potential for falsely elevated results. Performed By: #### C BC, GFR, MORPH, RFP, DIFF #### [place] [address] BUN/Creatinine Ratio 34.6 ratio High 10.0-22.0 [facility] Comment on above: Performed By: #### C BC, GFR, MORPH, RFP, DIFF #### [address] [address] Calcium [Mass/Vol] 8.9 mg/dL Normal 8.7-10.4 [facility] Comment on above: Performed By: #### C BC, GFR, MORPH, RFP, DIFF #### [address] [address] Chloride [Moles/Vol] 116 mmol/L High 98-110 [facility] Comment on above: Performed By: #### C BC, GFR, MORPH, RFP, DIFF #### [address] [address] CO2 [Moles/Vol] 25 mmol/L Normal 22-32 [facility] Comment on above: Performed By: #### C BC, GFR, MORPH, RFP, DIFF #### [address] [address] Creatinine [Mass/Vol] 1.36 mg/dL High 0.50-1.20 [facility] Comment on above: Result Comment: Test ing performed on [employer] analyzer using enzymatic creatinine methodology. Performed By: #### C BC, GFR, MORPH, RFP, DIFF #### [address] [address] Electrolyte Balance 13.0 mEq/L Normal 4.0-15.0 [facility] Comment on above: Performed By: #### C BC, GFR, MORPH, RFP, DIFF #### [address] [address] Globulin 3.6 G/dL Normal 2.5-4.2 [facility] Comment on above: Performed By: #### C BC, GFR, MORPH, RFP, DIFF #### [address] [address] Glucose [Mass/Vol] 213 mg/dL High 82-115 [facility] Comment on above: Performed By: #### C BC, GFR, MORPH, RFP, DIFF #### [address] [address] Potassium [Moles/Vol] 3.3 mmol/L Low 3.5-5.0 [facility] Comment on above: Performed By: #### C BC, GFR, MORPH, RFP, DIFF #### [address] [address] Sodium [Moles/Vol] 154 mmol/L High 136-145 [facility] Comment on above: Performed By: #### C BC, GFR, MORPH, RFP, DIFF #### [address] [address] Total Protein 6.2 G/dL Normal 5.7-8.2 [facility] Comment on above: Performed By: #### C BC, GFR, MORPH, RFP, DIFF #### [address] [address] Urea nitrogen [Mass/Vol] 47.0 mg/dL High 8.0-22.0 [facility] Comment on above: Performed By: #### C BC, GFR, MORPH, RFP, DIFF #### [address] [address] XR CHEST 1 VIEWon 03-08-2025 XR CHEST [...] 03/08/2025 7:31:39 AM Ordering Provider: ELKE MARQUEZ [facility] Basic Metabolic Profile (BMP )on 03-07-2025 BUN/CRE 33.2 RATIO High 10-20 [facility] Comment on above: Performed By: #### L 100.0100, L500.2500 ####[facility] [address] [place], [address] Calcium [Mass/Vol] 9.2 mg/dL Normal 7.6-11.[address] [facility] Comment on above: Performed By: #### L 100.0100, L500.2500 ####[facility] [address] [place], [address] Chloride [Moles/Vol] 114 mmol/L High 98-108 [facility] Comment on above: Performed By: #### L 100.0100, L500.2500 ####[facility] [address] [place], [address] CO2 [Moles/Vol] 19.9 mmol/L Low 21.0-32.0 [facility] Comment on above: Performed By: #### L 100.0100, L500.2500 ####[facility] [address] [place], [address] Creatinine [Mass/Vol] 1.46 mg/dL High 0.70-1.20 [facility] Comment on above: Performed By: #### L 100.0100, L500.2500 ####[facility] [address] [place], [address] ECRCL 38.38 ml/min Low 50-250 [facility] Comment on above: Performed By: #### L 100.0100, L500.2500 ####[facility] [address] [place], [address] GAP 16 High 5-15 [facility] Comment on above: Performed By: #### L 100.0100, L500.2500 ####[facility] [address] [place], [address] GFR/1.73 sq M.predicted among non-blacks MDRD (S/P/Bld) [Vol rate/Area] 37 mL/min/{1.73_m2} Low >60 [facility] Comment on above: Result Comment: mL/m in/1.73m2 CKD-EPI Creatinine Equation (2020) Performed By: #### L 100.0100, L500.2500 ####[facility] [address] [place], [address] Glucose [Mass/Vol] 167 mg/dL High 70-[address] [facility] Comment on above: Performed By: #### L 100.0100, L500.2500 ####[facility] [address] [place], [address] Potassium [Moles/Vol] 3.3 mmol/L Normal 3.3-5.1 [facility] Comment on above: Performed By: #### L 100.0100, L500.2500 ####[facility] [address] [place], [address] Sodium [Moles/Vol] 150 mmol/L High 133-[address] [facility] Comment on above: Performed By: #### L 100.0100, L500.2500 ####[facility] [address] [place], [address] Urea nitrogen [Mass/Vol] 49 mg/dL High 4-19 [facility] Comment on above: Performed By: #### L 100.0100, L500.2500 ####[facility] [address] [place], [address] Bedside Glucoseon 03-07-2024 FINGERSTICK GLU 144 mg/dL High 74-106 [facility] Comment on above: Result Comment: VI GEMENT OF PATIENT CARE PER NURSING PROTOCOL Performed By: #### L 501.080 ####[facility] [address] [place], [address] FINGERSTICK GLU 143 mg/dL High 74-106 [facility] Comment on above: Result Comment: VI GEMENT OF PATIENT CARE PER NURSING PROTOCOL Performed By: #### L 501.080 ####[facility] [address] [place], [address] CBC W/Diff, Automatedon 02-25 Anisocytosis Ql (Bld) 2+ Normal [facility] Comment on above: Performed By: #### L 100.0100, L500.2500 ####[facility] [address] [place], [address] OVALOCYTE 2+ Normal [facility] Comment on above: Performed By: #### L 100.0100, L500.2500 ####[facility] [address] [place], [address] POLYCHROMASIA 1+ Normal [facility] Comment on above: Performed By: #### L 100.0100, L500.2500 ####[facility] [address] [place], [address] SCHISTOCYTES RARE Normal [facility] Comment on above: Performed By: #### L 100.0100, L500.2500 ####[facility] [address] [place], [address] PLT EST ADEQUATE Normal ADEQ [facility] Comment on above: Performed By: #### L 100.0100, L500.2500 ####[facility] [address] [place], [address] SMEAR COMMENT SCANNED Normal [facility] Comment on above: Performed By: #### L 100.0100, L500.2500 ####[facility] [address] [place], [address] Discharge Instructionon 02-25 Discharge Instruction Normal [facility] Basic Metabolic Profile (BMP )on 03-06-2025 BUN/CRE 33.2 RATIO High 10-20 [facility] Comment on above: Performed By: #### L 500.2500, L100.0100 ####[facility] [address] [place], [address] Calcium [Mass/Vol] 9.3 mg/dL Normal 7.6-11.[address] [facility] Comment on above: Performed By: #### L 500.2500, L100.0100 ####[facility] [address] [place], [address] Chloride [Moles/Vol] 108 mmol/L Normal 98-108 [facility] Comment on above: Performed By: #### L 500.2500, L100.0100 ####[facility] [address] [place], [address] CO2 [Moles/Vol] 20.3 mmol/L Low 21.0-32.0 [facility] Comment on above: Performed By: #### L 500.2500, L100.0100 ####[facility] [address] [place], [address] Creatinine [Mass/Vol] 1.54 mg/dL High 0.70-1.20 [facility] Comment on above: Performed By: #### L 500.2500, L100.0100 ####[facility] [address] [place], [address] ECRCL 36.21 ml/min Low 50-250 [facility] Comment on above: Performed By: #### L 500.2500, L100.0100 ####[facility] [address] [place], [address] GAP 15 Normal 5-15 [facility] Comment on above: Performed By: #### L 500.2500, L100.0100 ####[facility] [address] [place], [address] GFR/1.73 sq M.predicted among non-blacks MDRD (S/P/Bld) [Vol rate/Area] 35 mL/min/{1.73_m2} Low >60 [facility] Comment on above: Result Comment: mL/m in/1.73m2 CKD-EPI Creatinine Equation (2020) Performed By: #### L 500.2500, L100.0100 ####[facility] [address] [place], [address] Glucose [Mass/Vol] 199 mg/dL High 70-[address] [facility] Comment on above: Performed By: #### L 500.2500, L100.0100 ####[facility] [address] [place], [address] Potassium [Moles/Vol] 3.7 mmol/L Normal 3.3-5.1 [facility] Comment on above: Performed By: #### L 500.2500, L100.0100 ####[facility] [address] [place], [address] Sodium [Moles/Vol] 144 mmol/L Normal 133-[address] [facility] Comment on above: Performed By: #### L 500.2500, L100.0100 ####[facility] [address] [place], [address] Urea nitrogen [Mass/Vol] 51 mg/dL High 4-19 [facility] Comment on above: Performed By: #### L 500.2500, L100.0100 ####[facility] [address] [place], [address] Bedside Glucoseon 03-06-2025 FINGERSTICK GLU 150 mg/dL High 74-106 [facility] Comment on above: Result Comment: VI GEMENT OF PATIENT CARE PER NURSING PROTOCOL Performed By: #### L 501.080 ####[facility] [address] [place], [address] FINGERSTICK GLU 155 mg/dL High 74-106 [facility] Comment on above: Result Comment: VI GEMENT OF PATIENT CARE PER NURSING PROTOCOL Performed By: #### L 501.080 ####[facility] [address] [place], [address] FINGERSTICK GLU 158 mg/dL High 74-106 [facility] Comment on above: Result Comment: VI GEMENT OF PATIENT CARE PER NURSING PROTOCOL Performed By: #### L 501.080 ####[facility] [address] [place], [address] FINGERSTICK GLU 175 mg/dL High 74-106 [facility] Comment on above: Result Comment: VI GEMENT OF PATIENT CARE PER NURSING PROTOCOL Performed By: #### L 501.080 ####[facility] [address] [place], [address] FINGERSTICK GLU 187 mg/dL High 74-106 [facility] Comment on above: Result Comment: VI GEMENT OF PATIENT CARE PER NURSING PROTOCOL Performed By: #### L 501.080 ####[facility] [address] [place], [address] CBC W/Diff, Automatedon 06- Anisocytosis Ql (Bld) 2+ Normal [facility] Comment on above: Performed By: #### L 500.2500, L100.0100 ####[facility] [address] [place], [address] MICROCYTIC 2+ Normal [facility] Comment on above: Performed By: #### L 500.2500, L100.0100 ####[facility] [address] [place], [address] OVALOCYTE RARE Normal [facility] Comment on above: Performed By: #### L 500.2500, L100.0100 ####[facility] [address] [place], [address] SMEAR COMMENT SCANNED Normal [facility] Comment on above: Performed By: #### L 500.2500, L100.0100 ####[facility] [address] [place], [address] EGD Reporton 03-06-2025 EGD Report Normal [facility] Small Bowel Series Onlyon Small Bowel Series Only Normal [facility] Basic Metabolic Profile (BMP )on 03-05-2025 BUN/CRE 32.6 RATIO High 10-20 [facility] Comment on above: Performed By: #### L 100.0100, L500.2500 ####[facility] [address] [place], [address] Calcium [Mass/Vol] 9.3 mg/dL Normal 7.6-11.[address] [facility] Comment on above: Performed By: #### L 100.0100, L500.2500 ####[facility] [address] [place], [address] Chloride [Moles/Vol] 104 mmol/L Normal 98-108 [facility] Comment on above: Performed By: #### L 100.0100, L500.2500 ####[facility] [address] [place], [address] CO2 [Moles/Vol] 18.4 mmol/L Low 21.0-32.0 [facility] Comment on above: Performed By: #### L 100.0100, L500.2500 ####[facility] [address] [place], [address] Creatinine [Mass/Vol] 1.52 mg/dL High 0.70-1.20 [facility] Comment on above: Performed By: #### L 100.0100, L500.2500 ####[facility] [address] [place], [address] ECRCL 36.68 ml/min Low 50-250 [facility] Comment on above: Performed By: #### L 100.0100, L500.2500 ####[facility] [address] [place], [address] GAP 20 High 5-15 [facility] Comment on above: Performed By: #### L 100.0100, L500.2500 ####[facility] [address] [place], [address] GFR/1.73 sq M.predicted among non-blacks MDRD (S/P/Bld) [Vol rate/Area] 35 mL/min/{1.73_m2} Low >60 [facility] Comment on above: Result Comment: mL/m in/1.73m2 CKD-EPI Creatinine Equation (2020) Performed By: #### L 100.0100, L500.2500 ####[facility] [address] [place], [address] Glucose [Mass/Vol] 170 mg/dL High 70-[address] [facility] Comment on above: Performed By: #### L 100.0100, L500.2500 ####[facility] [address] [place], [address] Potassium [Moles/Vol] 3.8 mmol/L Normal 3.3-5.1 [facility] Comment on above: Performed By: #### L 100.0100, L500.2500 ####[facility] [address] [place], [address] Sodium [Moles/Vol] 143 mmol/L Normal 133-[address] [facility] Comment on above: Performed By: #### L 100.0100, L500.2500 ####[facility] [address] [place], [address] Urea nitrogen [Mass/Vol] 50 mg/dL High 4-19 [facility] Comment on above: Performed By: #### L 100.0100, L500.2500 ####[facility] [address] [place], [address] Bedside Glucoseon 03-05-2025 FINGERSTICK GLU 179 mg/dL High 74-106 [facility] Comment on above: Result Comment: VI GEMENT OF PATIENT CARE PER NURSING PROTOCOL Performed By: #### L 501.080 ####[facility] [address] [place], [address] FINGERSTICK GLU 200 mg/dL High 74-106 [facility] Comment on above: Result Comment: VI GEMENT OF PATIENT CARE PER NURSING PROTOCOL Performed By: #### L 501.080 ####[facility] [address] [place], [address] FINGERSTICK GLU 132 mg/dL High 74-106 [facility] Comment on above: Result Comment: VI GEMENT OF PATIENT CARE PER NURSING PROTOCOL Performed By: #### L 501.080 ####[facility] [address] [place], [address] FINGERSTICK GLU 141 mg/dL High 74-106 [facility] Comment on above: Result Comment: VI GEMENT OF PATIENT CARE PER NURSING PROTOCOL Performed By: #### L 501.080 ####[facility] [address] [place], [address] CBC W/Diff, Automatedon Anisocytosis Ql (Bld) 1+ Normal [facility] Comment on above: Performed By: #### L 100.0100, L500.2500 ####[facility] [address] [place], [address] Consultation - OB/GYNon Consultation - TALENT ACQUISITION ASSOCIATE Normal [facility] Basic Metabolic Profile (BMP )on 03-04-2025 BUN/CRE 28.8 RATIO High 10-20 [facility] Comment on above: Performed By: #### L 500.2500, L100.0100 ####[facility] [address] [place], [address] Calcium [Mass/Vol] 9.2 mg/dL Normal 7.6-11.[address] [facility] Comment on above: Performed By: #### L 500.2500, L100.0100 ####[facility] [address] [place], [address] Chloride [Moles/Vol] 103 mmol/L Normal 98-108 [facility] Comment on above: Performed By: #### L 500.2500, L100.0100 ####[facility] [address] [place], [address] CO2 [Moles/Vol] 21.1 mmol/L Normal 21.0-32.0 [facility] Comment on above: Performed By: #### L 500.2500, L100.0100 ####[facility] [address] [place], [address] Creatinine [Mass/Vol] 1.70 mg/dL High 0.70-1.20 [facility] Comment on above: Performed By: #### L 500.2500, L100.0100 ####[facility] [address] [place], [address] ECRCL 33.16 ml/min Low 50-250 [facility] Comment on above: Performed By: #### L 500.2500, L100.0100 ####[facility] [address] [place], [address] GAP 18 High 5-15 [facility] Comment on above: Performed By: #### L 500.2500, L100.0100 ####[facility] [address] [place], [address] GFR/1.73 sq M.predicted among non-blacks MDRD (S/P/Bld) [Vol rate/Area] 31 mL/min/{1.73_m2} Low >60 [facility] Comment on above: Result Comment: mL/m in/1.73m2 CKD-EPI Creatinine Equation (2020) Performed By: #### L 500.2500, L100.0100 ####[facility] [address] [place], [address] Glucose [Mass/Vol] 142 mg/dL High 70-[address] [facility] Comment on above: Performed By: #### L 500.2500, L100.0100 ####[facility] [address] [place], [address] Potassium [Moles/Vol] 3.2 mmol/L Low 3.3-5.1 [facility] Comment on above: Performed By: #### L 500.2500, L100.0100 ####[facility] [address] [place], [address] Sodium [Moles/Vol] 142 mmol/L Normal 133-[address] [facility] Comment on above: Performed By: #### L 500.2500, L100.0100 ####[facility] [address] [place], [address] Urea nitrogen [Mass/Vol] 49 mg/dL High 4-19 [facility] Comment on above: Performed By: #### L 500.2500, L100.0100 ####[facility] [address] [place], [address] Bedside Glucoseon 03-04-2025 FINGERSTICK GLU 143 mg/dL High 74-106 [facility] Comment on above: Result Comment: Dr Shawn padilla FollowedMANAGEMENT OF PATIENT CARE PER NURSING PROTOCOL Performed By: #### L 501.080 ####[facility] [address] [place], [address] FINGERSTICK GLU 158 mg/dL High 74-106 [facility] Comment on above: Result Comment: Insu neo GivenMANAGEMENT OF PATIENT CARE PER NURSING PROTOCOL Performed By: #### L 501.080 ####[facility] [address] [place], [address] FINGERSTICK GLU 141 mg/dL High 74-106 [facility] Comment on above: Result Comment: VI GEMENT OF PATIENT CARE PER NURSING PROTOCOL Performed By: #### L 501.080 ####[facility] [address] [place], [address] CBC W/Diff, Automatedon 06-0 Absolute Lymph 1.12 X10 3/uL Normal 0.83-4.51 [facility] Comment on above: Performed By: #### L 500.2500, L100.0100 ####[facility] [address] [place], [address] Absolute Neut 7.0 X10 3/uL Normal 2.0-7.7 [facility] Comment on above: Performed By: #### L 500.2500, L100.0100 ####[facility] [address] [place], [address] Basophils/100 WBC (Bld) 1.5 % High 0-1 [facility] Comment on above: Performed By: #### L 500.2500, L100.0100 ####[facility] [address] [place], [address] Eosinophils/100 WBC (Bld) 3.5 % Normal 0-5 [facility] Comment on above: Performed By: #### L 500.2500, L100.0100 ####[facility] [address] [place], [address] Erythrocyte distribution width (RBC) [Ratio] 19.7 % High 11.6-14.6 [facility] Comment on above: Performed By: #### L 500.2500, L100.0100 ####[facility] [address] [place], [address] Hematocrit (Bld) [Volume fraction] 31.1 % Low 37-47 [facility] Comment on above: Performed By: #### L 500.2500, L100.0100 ####[facility] [address] [place], [address] Hemoglobin (Bld) [Mass/Vol] 9.2 g/dL Low 12.0-15.0 [facility] Comment on above: Performed By: #### L 500.2500, L100.0100 ####[facility] [address] [place], [address] IG% 0.400 Normal 0.0-0.9 [facility] Comment on above: Result Comment: IG% - Immature Granulocytes (promyelocytes, myelocytes andmetamyelocytes) > 1% indicates that a LEFT SHIFT is Present. Performed By: #### L 500.2500, L100.0100 ####[facility] [address] [place], [address] Lymphocytes/100 WBC (Bld) 11.8 % Low 19-41 [facility] Comment on above: Performed By: #### L 500.2500, L100.0100 ####[facility] [address] [place], [address] MCH (RBC) [Entitic mass] 21.5 pg Low 27.0-32.0 [facility] Comment on above: Performed By: #### L 500.2500, L100.0100 ####[facility] [address] [place], [address] MCHC (RBC) [Mass/Vol] 29.6 g/dL Low 32-36 [facility] Comment on above: Performed By: #### L 500.2500, L100.0100 ####[facility] [address] [place], [address] MCV (RBC) [Entitic vol] 72.8 fL Low 81-99 [facility] Comment on above: Performed By: #### L 500.2500, L100.0100 ####[facility] [address] [place], [address] Monocytes/100 WBC (Bld) 9.2 % Normal 0-10 [facility] Comment on above: Performed By: #### L 500.2500, L100.0100 ####[facility] [address] [place], [address] Neutrophils/100 WBC (Bld) 73.6 % High 47-70 [facility] Comment on above: Performed By: #### L 500.2500, L100.0100 ####[facility] [address] [place], [address] Nucleated RBC (Bld) [#/Vol] 0 10*3/uL Normal 0-5 [facility] Comment on above: Performed By: #### L 500.2500, L100.0100 ####[facility] [address] [place], [address] Platelet mean volume (Bld) [Entitic vol] 9.2 fL Normal 6.2-12.0 [facility] Comment on above: Performed By: #### L 500.2500, L100.0100 ####[facility] [address] [place], [address] Platelets (Bld) [#/Vol] 330 10*3/uL Normal 150-450 [facility] Comment on above: Performed By: #### L 500.2500, L100.0100 ####[facility] [address] [place], [address] RBC (Bld) [#/Vol] 4.27 10*6/uL Normal 4.2-5.[address] [facility] Comment on above: Performed By: #### L 500.2500, L100.0100 ####[facility] [address] [place], [address] RDW SD 50.4 fl High 35.1-43.9 [facility] Comment on above: Performed By: #### L 500.2500, L100.0100 ####[facility] [address] [place], [address] WBC (Bld) [#/Vol] 9.5 10*3/uL Normal 4.4-11.[address] [facility] Comment on above: Performed By: #### L 500.2500, L100.0100 ####[facility] [address] [place], [address] Fibrinogenon 03-04-2025 FIBRINOGEN 590 mg/dl High 203-444 [facility] Comment on above: Performed By: #### L 300.4700, L300.3900, L300.4310 ####[facility] [address] [place], [address] Partial Thromboplast Timeon 03-04-2025 aPTT Coag (Bld) [Time] 21.7 s Low 24.1-36.2 [facility] Comment on above: Performed By: #### L 300.4700, L300.3900, L300.4310 ####[facility] [address] [place], [address] Prothrombin Time w/INRon INR Coag (PPP) [Relative time] 1.5 {INR} Normal [facility] Comment on above: Performed By: #### L 300.4700, L300.3900, L300.4310 ####[facility] [address] [place], [address] PT Coag (PPP) [Time] 18.7 s High 11.7-14.9 [facility] Comment on above: Performed By: #### L 300.4700, L300.3900, L300.4310 ####[facility] [address] [place], [address] Transvaginal Non-on 03-04-2025 Transvaginal Non- Normal [facility] Basic Metabolic Profile (BMP )on 03-03-2025 BUN/CRE 25.0 RATIO High 10-20 [facility] Comment on above: Performed By: #### L 500.2500, L100.0100 ####[facility] [address] [place], [address] Calcium [Mass/Vol] 9.2 mg/dL Normal 7.6-11.[address] [facility] Comment on above: Performed By: #### L 500.2500, L100.0100 ####[facility] [address] [place], [address] Chloride [Moles/Vol] 101 mmol/L Normal 98-108 [facility] Comment on above: Performed By: #### L 500.2500, L100.0100 ####[facility] [address] [place], [address] CO2 [Moles/Vol] 18.1 mmol/L Low 21.0-32.0 [facility] Comment on above: Performed By: #### L 500.2500, L100.0100 ####[facility] [address] [place], [address] Creatinine [Mass/Vol] 1.78 mg/dL High 0.70-1.20 [facility] Comment on above: Performed By: #### L 500.2500, L100.0100 ####[facility] [address] [place], [address] ECRCL 31.67 ml/min Low 50-250 [facility] Comment on above: Performed By: #### L 500.2500, L100.0100 ####[facility] [address] [place], [address] GAP 20 High 5-15 [facility] Comment on above: Performed By: #### L 500.2500, L100.0100 ####[facility] [address] [place], [address] GFR/1.73 sq M.predicted among non-blacks MDRD (S/P/Bld) [Vol rate/Area] 29 mL/min/{1.73_m2} Low >60 [facility] Comment on above: Result Comment: mL/m in/1.73m2 CKD-EPI Creatinine Equation (2020) Performed By: #### L 500.2500, L100.0100 ####[facility] [address] [place], [address] Glucose [Mass/Vol] 159 mg/dL High 70-[address] [facility] Comment on above: Performed By: #### L 500.2500, L100.0100 ####[facility] [address] [place], [address] Potassium [Moles/Vol] 3.3 mmol/L Normal 3.3-5.1 [facility] Comment on above: Performed By: #### L 500.2500, L100.0100 ####[facility] [address] [place], [address] Sodium [Moles/Vol] 140 mmol/L Normal 133-[address] [facility] Comment on above: Performed By: #### L 500.2500, L100.0100 ####[facility] [address] [place], [address] Urea nitrogen [Mass/Vol] 45 mg/dL High 4-19 [facility] Comment on above: Performed By: #### L 500.2500, L100.0100 ####[facility] [address] [place], [address] Bedside Glucoseon 03-03-2025 FINGERSTICK GLU 162 mg/dL High 74-106 [facility] Comment on above: Result Comment: VI GEMENT OF PATIENT CARE PER NURSING PROTOCOL Performed By: #### L 501.080 ####[facility] [address] [place], [address] FINGERSTICK GLU 165 mg/dL High 74-106 [facility] Comment on above: Result Comment: Dr Shawn padilla FollowedInsulin GivenMANAGEMENT OF PATIENT CARE PER NURSING PROTOCOL Performed By: #### L 501.080 ####[facility] [address] [place], [address] FINGERSTICK GLU 145 mg/dL High 74-106 [facility] Comment on above: Result Comment: VI GEMENT OF PATIENT CARE PER NURSING PROTOCOL Performed By: #### L 501.080 ####[facility] [address] [place], [address] CBC W/Diff, Automatedon 06-0 Absolute Lymph 1.20 X10 3/uL Normal 0.83-4.51 [facility] Comment on above: Performed By: #### L 500.2500, L100.0100 ####[facility] [address] [place], [address] Absolute Neut 7.5 X10 3/uL Normal 2.0-7.7 [facility] Comment on above: Performed By: #### L 500.2500, L100.0100 ####[facility] [address] [place], [address] Basophils/100 WBC (Bld) 1.0 % Normal 0-1 [facility] Comment on above: Performed By: #### L 500.2500, L100.0100 ####[facility] [address] [place], [address] Eosinophils/100 WBC (Bld) 4.1 % Normal 0-5 [facility] Comment on above: Performed By: #### L 500.2500, L100.0100 ####[facility] [address] [place], [address] Erythrocyte distribution width (RBC) [Ratio] 19.5 % High 11.6-14.6 [facility] Comment on above: Performed By: #### L 500.2500, L100.0100 ####[facility] [address] [place], [address] Hematocrit (Bld) [Volume fraction] 30.3 % Low 37-47 [facility] Comment on above: Performed By: #### L 500.2500, L100.0100 ####[facility] [address] [place], [address] Hemoglobin (Bld) [Mass/Vol] 8.9 g/dL Low 12.0-15.0 [facility] Comment on above: Performed By: #### L 500.2500, L100.0100 ####[facility] [address] [place], [address] IG% 0.500 Normal 0.0-0.9 [facility] Comment on above: Result Comment: IG% - Immature Granulocytes (promyelocytes, myelocytes andmetamyelocytes) > 1% indicates that a LEFT SHIFT is Present. Performed By: #### L 500.2500, L100.0100 ####[facility] [address] [place], [address] Lymphocytes/100 WBC (Bld) 11.7 % Low 19-41 [facility] Comment on above: Performed By: #### L 500.2500, L100.0100 ####[facility] [address] [place], [address] MCH (RBC) [Entitic mass] 21.8 pg Low 27.0-32.0 [facility] Comment on above: Performed By: #### L 500.2500, L100.0100 ####[facility] [address] [place], [address] MCHC (RBC) [Mass/Vol] 29.4 g/dL Low 32-36 [facility] Comment on above: Performed By: #### L 500.2500, L100.0100 ####[facility] [address] [place], [address] MCV (RBC) [Entitic vol] 74.3 fL Low 81-99 [facility] Comment on above: Performed By: #### L 500.2500, L100.0100 ####[facility] [address] [place], [address] Monocytes/100 WBC (Bld) 10.0 % Normal 0-10 [facility] Comment on above: Performed By: #### L 500.2500, L100.0100 ####[facility] [address] [place], [address] Neutrophils/100 WBC (Bld) 72.7 % High 47-70 [facility] Comment on above: Performed By: #### L 500.2500, L100.0100 ####[facility] [address] [place], [address] Nucleated RBC (Bld) [#/Vol] 0 10*3/uL Normal 0-5 [facility] Comment on above: Performed By: #### L 500.2500, L100.0100 ####[facility] [address] [place], [address] Platelet mean volume (Bld) [Entitic vol] 9.1 fL Normal 6.2-12.0 [facility] Comment on above: Performed By: #### L 500.2500, L100.0100 ####[facility] [address] [place], [address] Platelets (Bld) [#/Vol] 365 10*3/uL Normal 150-450 [facility] Comment on above: Performed By: #### L 500.2500, L100.0100 ####[facility] [address] [place], [address] RBC (Bld) [#/Vol] 4.08 10*6/uL Low 4.2-5.[address] [facility] Comment on above: Performed By: #### L 500.2500, L100.0100 ####[facility] [address] [place], [address] RDW SD 51.2 fl High 35.1-43.9 [facility] Comment on above: Performed By: #### L 500.2500, L100.0100 ####[facility] [address] [place], [address] WBC (Bld) [#/Vol] 10.3 10*3/uL Normal 4.4-11.[address] [facility] Comment on above: Performed By: #### L 500.2500, L100.0100 ####[facility] [address] [place], [address] ENTERIC PATHOGEN PANEL STOOL on 03-03-2025 EP PANEL Normal [facility] Comment on above: Performed By: #### M 100.0605, M100.6796, M100.637, M100.6795 ####[facility] [address] [place], [address] HH, Hemoglobin AND Hematocri ton 03-03-2025 Hematocrit (Bld) [Volume fraction] 34.1 % Low 37-47 [facility] Comment on above: Performed By: #### L 100.0600 ####[facility] [address] [place], [address] Hemoglobin (Bld) [Mass/Vol] 10.0 g/dL Low 12.0-15.0 [facility] Comment on above: Performed By: #### L 100.0600 ####[facility] [address] [place], [address] Abdomen/Pel W ORAL Cont Only on 03-02-2025 Abdomen/Pel W ORAL Cont Only Normal [facility] Basic Metabolic Profile (BMP )on 03-02-2025 BUN/CRE 21.3 RATIO High 10-20 [facility] Comment on above: Performed By: #### L 500.2500, L100.0100 ####[facility] [address] [place], [address] Calcium [Mass/Vol] 9.2 mg/dL Normal 7.6-11.[address] [facility] Comment on above: Performed By: #### L 500.2500, L100.0100 ####[facility] [address] [place], [address] Chloride [Moles/Vol] 101 mmol/L Normal 98-108 [facility] Comment on above: Performed By: #### L 500.2500, L100.0100 ####[facility] [address] [place], [address] CO2 [Moles/Vol] 15.4 mmol/L Low 21.0-32.0 [facility] Comment on above: Performed By: #### L 500.2500, L100.0100 ####[facility] [address] [place], [address] Creatinine [Mass/Vol] 1.67 mg/dL High 0.70-1.20 [facility] Comment on above: Performed By: #### L 500.2500, L100.0100 ####[facility] [address] [place], [address] ECRCL 33.77 ml/min Low 50-250 [facility] Comment on above: Performed By: #### L 500.2500, L100.0100 ####[facility] [address] [place], [address] GAP 25 High 5-15 [facility] Comment on above: Performed By: #### L 500.2500, L100.0100 ####[facility] [address] [place], [address] GFR/1.73 sq M.predicted among non-blacks MDRD (S/P/Bld) [Vol rate/Area] 32 mL/min/{1.73_m2} Low >60 [facility] Comment on above: Result Comment: mL/m in/1.73m2 CKD-EPI Creatinine Equation (2020) Performed By: #### L 500.2500, L100.0100 ####[facility] [address] [place], [address] Glucose [Mass/Vol] 144 mg/dL High 70-[address] [facility] Comment on above: Performed By: #### L 500.2500, L100.0100 ####[facility] [address] [place], [address] Potassium [Moles/Vol] 3.6 mmol/L Normal 3.3-5.1 [facility] Comment on above: Performed By: #### L 500.2500, L100.0100 ####[facility] [address] [place], [address] Sodium [Moles/Vol] 142 mmol/L Normal 133-[address] [facility] Comment on above: Performed By: #### L 500.2500, L100.0100 ####[facility] [address] [place], [address] Urea nitrogen [Mass/Vol] 36 mg/dL High 4-19 [facility] Comment on above: Performed By: #### L 500.2500, L100.0100 ####[facility] [address] [place], [address] Bedside Glucoseon - FINGERSTICK GLU 165 mg/dL High 74-106 [facility] Comment on above: Result Comment: VI GEMENT OF PATIENT CARE PER NURSING PROTOCOL Performed By: #### L 501.080 ####[facility] [address] [place], [address] FINGERSTICK GLU 167 mg/dL High 74-106 [facility] Comment on above: Result Comment: VI GEMENT OF PATIENT CARE PER NURSING PROTOCOL Performed By: #### L 501.080 ####[facility] [address] [place], [address] FINGERSTICK GLU 139 mg/dL High 74-106 [facility] Comment on above: Result Comment: VI GEMENT OF PATIENT CARE PER NURSING PROTOCOL Performed By: #### L 501.080 ####[facility] [address] [place], [address] CBC W/Diff, Automatedon 06-0 Absolute Lymph 1.02 X10 3/uL Normal 0.83-4.51 [facility] Comment on above: Performed By: #### L 500.2500, L100.0100 ####[facility] [address] [place], [address] Absolute Neut 8.8 X10 3/uL High 2.0-7.7 [facility] Comment on above: Performed By: #### L 500.2500, L100.0100 ####[facility] [address] [place], [address] Basophils/100 WBC (Bld) 1.0 % Normal 0-1 [facility] Comment on above: Performed By: #### L 500.2500, L100.0100 ####[facility] [address] [place], [address] Eosinophils/100 WBC (Bld) 1.9 % Normal 0-5 [facility] Comment on above: Performed By: #### L 500.2500, L100.0100 ####[facility] [address] [place], [address] Erythrocyte distribution width (RBC) [Ratio] 19.6 % High 11.6-14.6 [facility] Comment on above: Performed By: #### L 500.2500, L100.0100 ####[facility] [address] [place], [address] Hematocrit (Bld) [Volume fraction] 30.6 % Low 37-47 [facility] Comment on above: Performed By: #### L 500.2500, L100.0100 ####[facility] [address] [place], [address] Hemoglobin (Bld) [Mass/Vol] 8.9 g/dL Low 12.0-15.0 [facility] Comment on above: Performed By: #### L 500.2500, L100.0100 ####[facility] [address] [place], [address] IG% 0.500 Normal 0.0-0.9 [facility] Comment on above: Result Comment: IG% - Immature Granulocytes (promyelocytes, myelocytes andmetamyelocytes) > 1% indicates that a LEFT SHIFT is Present. Performed By: #### L 500.2500, L100.0100 ####[facility] [address] [place], [address] Lymphocytes/100 WBC (Bld) 9.2 % Low 19-41 [facility] Comment on above: Performed By: #### L 500.2500, L100.0100 ####[facility] [address] [place], [address] MCH (RBC) [Entitic mass] 21.6 pg Low 27.0-32.0 [facility] Comment on above: Performed By: #### L 500.2500, L100.0100 ####[facility] [address] [place], [address] MCHC (RBC) [Mass/Vol] 29.1 g/dL Low 32-36 [facility] Comment on above: Performed By: #### L 500.2500, L100.0100 ####[facility] [address] [place], [address] MCV (RBC) [Entitic vol] 74.3 fL Low 81-99 [facility] Comment on above: Performed By: #### L 500.2500, L100.0100 ####[facility] [address] [place], [address] Monocytes/100 WBC (Bld) 8.5 % Normal 0-10 [facility] Comment on above: Performed By: #### L 500.2500, L100.0100 ####[facility] [address] [place], [address] Neutrophils/100 WBC (Bld) 78.9 % High 47-70 [facility] Comment on above: Performed By: #### L 500.2500, L100.0100 ####[facility] [address] [place], [address] Nucleated RBC (Bld) [#/Vol] 0 10*3/uL Normal 0-5 [facility] Comment on above: Performed By: #### L 500.2500, L100.0100 ####[facility] [address] [place], [address] Platelet mean volume (Bld) [Entitic vol] 9.5 fL Normal 6.2-12.0 [facility] Comment on above: Performed By: #### L 500.2500, L100.0100 ####[facility] [address] [place], [address] Platelets (Bld) [#/Vol] 416 10*3/uL Normal 150-450 [facility] Comment on above: Performed By: #### L 500.2500, L100.0100 ####[facility] [address] [place], [address] RBC (Bld) [#/Vol] 4.12 10*6/uL Low 4.2-5.[address] [facility] Comment on above: Performed By: #### L 500.2500, L100.0100 ####[facility] [address] [place], [address] RDW SD 52.1 fl High 35.1-43.9 [facility] Comment on above: Performed By: #### L 500.2500, L100.0100 ####[facility] [address] [place], [address] WBC (Bld) [#/Vol] 11.1 10*3/uL High 4.4-11.[address] [facility] Comment on above: Performed By: #### L 500.2500, L100.0100 ####[facility] [address] [place], [address] CDIFF (PCR)on 03-02-2025 CDIFF Normal [facility] Comment on above: Performed By: #### M 100.0605, M100.6796, M100.637, M100.6795 ####[facility] [address] [place], [address] Clostridium Diff Toxin/Agon 03-02-2025 CDIFF (EIA) Normal [facility] Comment on above: Performed By: #### M 100.0605, M100.6796, M100.637, M100.6795 ####[facility] [address] [place], [address] Stool Lactoferrin/WBCon 06-0 WBCST Is the patient receiving laxatives? N New/unexplained onset of 3 or more stools in past 24 hrs? Y Normal Reference Range = Negative Fecal WBC Lactoferrin A Positive: Fecal WBC Lactoferrin present A Normal [facility] Comment on above: Performed By: #### M 100.0605, M100.6796, M100.637, M100.6795 ####[facility] [address] [place], [address] Abdomen Single View (Portabl e)on 03-01-2025 Abdomen Single View (Portable) Normal [facility] Basic Metabolic Profile (BMP )on 03-01-2025 BUN/CRE 24.0 RATIO High 10-20 [facility] Comment on above: Performed By: #### L 500.2500, L503.6005 ####[facility] [address] [place], [address] Calcium [Mass/Vol] 8.6 mg/dL Normal 7.6-11.[address] [facility] Comment on above: Performed By: #### L 500.2500, L503.6005 ####[facility] [address] [place], [address] Chloride [Moles/Vol] 101 mmol/L Normal 98-108 [facility] Comment on above: Performed By: #### L 500.2500, L503.6005 ####[facility] [address] [place], [address] CO2 [Moles/Vol] 12.3 mmol/L Low 21.0-32.0 [facility] Comment on above: Performed By: #### L 500.2500, L503.6005 ####[facility] [address] [place], [address] Creatinine [Mass/Vol] 2.21 mg/dL High 0.70-1.20 [facility] Comment on above: Performed By: #### L 500.2500, L503.6005 ####[facility] [address] [place], [address] ECRCL 25.59 ml/min Low 50-250 [facility] Comment on above: Performed By: #### L 500.2500, L503.6005 ####[facility] [address] [place], [address] GAP 29 High 5-15 [facility] Comment on above: Performed By: #### L 500.2500, L503.6005 ####[facility] [address] [place], [address] GFR/1.73 sq M.predicted among non-blacks MDRD (S/P/Bld) [Vol rate/Area] 23 mL/min/{1.73_m2} Low >60 [facility] Comment on above: Result Comment: mL/m in/1.73m2 CKD-EPI Creatinine Equation (2020) Performed By: #### L 500.2500, L503.6005 ####[facility] [address] [place], [address] Glucose [Mass/Vol] 160 mg/dL High 70-[address] [facility] Comment on above: Performed By: #### L 500.2500, L503.6005 ####[facility] [address] [place], [address] Potassium [Moles/Vol] 3.7 mmol/L Normal 3.3-5.1 [facility] Comment on above: Performed By: #### L 500.2500, L503.6005 ####[facility] [address] [place], [address] Sodium [Moles/Vol] 142 mmol/L Normal 133-[address] [facility] Comment on above: Performed By: #### L 500.2500, L503.6005 ####[facility] [address] [place], [address] Urea nitrogen [Mass/Vol] 53 mg/dL High 4-19 [facility] Comment on above: Performed By: #### L 500.2500, L503.6005 ####[facility] [address] [place], [address] BUN/CRE 24.5 RATIO High 10-20 [facility] Comment on above: Performed By: #### L 100.0100, L500.2500 ####[facility] [address] [place], [address] Calcium [Mass/Vol] 8.5 mg/dL Normal 7.6-11.[address] [facility] Comment on above: Performed By: #### L 100.0100, L500.2500 ####[facility] [address] [place], [address] Chloride [Moles/Vol] 101 mmol/L Normal 98-108 [facility] Comment on above: Performed By: #### L 100.0100, L500.2500 ####[facility] [address] [place], [address] CO2 [Moles/Vol] 10.8 mmol/L Low 21.0-32.0 [facility] Comment on above: Performed By: #### L 100.0100, L500.2500 ####[facility] [address] [place], [address] Creatinine [Mass/Vol] 2.11 mg/dL High 0.70-1.20 [facility] Comment on above: Performed By: #### L 100.0100, L500.2500 ####[facility] [address] [place], [address] ECRCL 26.80 ml/min Low 50-250 [facility] Comment on above: Performed By: #### L 100.0100, L500.2500 ####[facility] [address] [place], [address] GAP 30 High 5-15 [facility] Comment on above: Performed By: #### L 100.0100, L500.2500 ####[facility] [address] [place], [address] GFR/1.73 sq M.predicted among non-blacks MDRD (S/P/Bld) [Vol rate/Area] 24 mL/min/{1.73_m2} Low >60 [facility] Comment on above: Result Comment: mL/m in/1.73m2 CKD-EPI Creatinine Equation (2020) Performed By: #### L 100.0100, L500.2500 ####[facility] [address] [place], [address] Glucose [Mass/Vol] 165 mg/dL High 70-[address] [facility] Comment on above: Performed By: #### L 100.0100, L500.2500 ####[facility] [address] [place], [address] Potassium [Moles/Vol] 3.8 mmol/L Normal 3.3-5.1 [facility] Comment on above: Performed By: #### L 100.0100, L500.2500 ####[facility] [address] [place], [address] Sodium [Moles/Vol] 142 mmol/L Normal 133-[address] [facility] Comment on above: Performed By: #### L 100.0100, L500.2500 ####[facility] [address] [place], [address] Urea nitrogen [Mass/Vol] 52 mg/dL High 4-19 [facility] Comment on above: Performed By: #### L 100.0100, L500.2500 ####[facility] [address] [place], [address] Bedside Glucoseon 03-01-2024 FINGERSTICK GLU 154 mg/dL High 74-106 [facility] Comment on above: Result Comment: VI MONTEJO OF PATIENT CARE PER NURSING PROTOCOL Performed By: #### L 501.080 ####[facility] [address] [place], [address] CBC W/Diff, Automatedon 06-0 -2024 Absolute Lymph 1.06 X10 3/uL Normal 0.83-4.51 [facility] Comment on above: Performed By: #### L 100.0100, L500.2500 ####[facility] [address] [place], [address] Absolute Neut 11.1 X10 3/uL High 2.0-7.7 [facility] Comment on above: Performed By: #### L 100.0100, L500.2500 ####[facility] [address] [place], [address] Basophils/100 WBC (Bld) 0.7 % Normal 0-1 [facility] Comment on above: Performed By: #### L 100.0100, L500.2500 ####[facility] [address] [place], [address] Eosinophils/100 WBC (Bld) 0.4 % Normal 0-5 [facility] Comment on above: Performed By: #### L 100.0100, L500.2500 ####[facility] [address] [place], [address] Erythrocyte distribution width (RBC) [Ratio] 19.2 % High 11.6-14.6 [facility] Comment on above: Performed By: #### L 100.0100, L500.2500 ####[facility] [address] [place], [address] Hematocrit (Bld) [Volume fraction] 30.4 % Low 37-47 [facility] Comment on above: Performed By: #### L 100.0100, L500.2500 ####[facility] [address] [place], [address] Hemoglobin (Bld) [Mass/Vol] 8.7 g/dL Low 12.0-15.0 [facility] Comment on above: Performed By: #### L 100.0100, L500.2500 ####[facility] [address] [place], [address] IG% 0.700 Normal 0.0-0.9 [facility] Comment on above: Result Comment: IG% - Immature Granulocytes (promyelocytes, myelocytes andmetamyelocytes) > 1% indicates that a LEFT SHIFT is Present. Performed By: #### L 100.0100, L500.2500 ####[facility] [address] [place], [address] Lymphocytes/100 WBC (Bld) 7.9 % Low 19-41 [facility] Comment on above: Performed By: #### L 100.0100, L500.2500 ####[facility] [address] [place], [address] MCH (RBC) [Entitic mass] 21.8 pg Low 27.0-32.0 [facility] Comment on above: Performed By: #### L 100.0100, L500.2500 ####[facility] [address] [place], [address] MCHC (RBC) [Mass/Vol] 28.6 g/dL Low 32-36 [facility] Comment on above: Performed By: #### L 100.0100, L500.2500 ####[facility] [address] [place], [address] MCV (RBC) [Entitic vol] 76.0 fL Low 81-99 [facility] Comment on above: Performed By: #### L 100.0100, L500.2500 ####[facility] [address] [place], [address] Monocytes/100 WBC (Bld) 6.7 % Normal 0-10 [facility] Comment on above: Performed By: #### L 100.0100, L500.2500 ####[facility] [address] [place], [address] Neutrophils/100 WBC (Bld) 83.6 % High 47-70 [facility] Comment on above: Performed By: #### L 100.0100, L500.2500 ####[facility] [address] [place], [address] Nucleated RBC (Bld) [#/Vol] 0 10*3/uL Normal 0-5 [facility] Comment on above: Performed By: #### L 100.0100, L500.2500 ####[facility] [address] [place], [address] Platelet mean volume (Bld) [Entitic vol] 9.8 fL Normal 6.2-12.0 [facility] Comment on above: Performed By: #### L 100.0100, L500.2500 ####[facility] [address] [place], [address] Platelets (Bld) [#/Vol] 464 10*3/uL High 150-450 [facility] Comment on above: Performed By: #### L 100.0100, L500.2500 ####[facility] [address] [place], [address] RBC (Bld) [#/Vol] 4.00 10*6/uL Low 4.2-5.[address] [facility] Comment on above: Performed By: #### L 100.0100, L500.2500 ####[facility] [address] [place], [address] RDW SD 52.8 fl High 35.1-43.9 [facility] Comment on above: Performed By: #### L 100.0100, L500.2500 ####[facility] [address] [place], [address] WBC (Bld) [#/Vol] 13.3 10*3/uL High 4.4-11.[address] [facility] Comment on above: Performed By: #### L 100.0100, L500.2500 ####[facility] [address] [place], [address] Lactic Acidon 03-01-2025 Lactate [Moles/Vol] mmol/L Normal 0.0-2.[address] [facility] Comment on above: Order Comment: Y Performed By: #### L 500.2500, L503.6005 ####[facility] [address] [place], [address] Basic Metabolic Profile (BMP )on 02-28-2025 BUN/CRE 27.8 RATIO High 10-20 [facility] Comment on above: Performed By: #### L 500.2500, L100.0100 ####[facility] [address] [place], [address] Calcium [Mass/Vol] 8.7 mg/dL Normal 7.6-11.[address] [facility] Comment on above: Performed By: #### L 500.2500, L100.0100 ####[facility] [address] [place], [address] Chloride [Moles/Vol] 101 mmol/L Normal 98-108 [facility] Comment on above: Performed By: #### L 500.2500, L100.0100 ####[facility] [address] [place], [address] CO2 [Moles/Vol] 18.2 mmol/L Low 21.0-32.0 [facility] Comment on above: Performed By: #### L 500.2500, L100.0100 ####[facility] [address] [place], [address] Creatinine [Mass/Vol] 1.57 mg/dL High 0.70-1.20 [facility] Comment on above: Performed By: #### L 500.2500, L100.0100 ####[facility] [address] [place], [address] ECRCL 36.63 ml/min Low 50-250 [facility] Comment on above: Performed By: #### L 500.2500, L100.0100 ####[facility] [address] [place], [address] GAP 19 High 5-15 [facility] Comment on above: Performed By: #### L 500.2500, L100.0100 ####[facility] [address] [place], [address] GFR/1.73 sq M.predicted among non-blacks MDRD (S/P/Bld) [Vol rate/Area] 34 mL/min/{1.73_m2} Low >60 [facility] Comment on above: Result Comment: mL/m in/1.73m2 CKD-EPI Creatinine Equation (2020) Performed By: #### L 500.2500, L100.0100 ####[facility] [address] [place], [address] Glucose [Mass/Vol] 91 mg/dL Normal 70-[address] [facility] Comment on above: Performed By: #### L 500.2500, L100.0100 ####[facility] [address] [place], [address] Potassium [Moles/Vol] 4.1 mmol/L Normal 3.3-5.1 [facility] Comment on above: Performed By: #### L 500.2500, L100.0100 ####[facility] [address] [place], [address] Sodium [Moles/Vol] 139 mmol/L Normal 133-[address] [facility] Comment on above: Performed By: #### L 500.2500, L100.0100 ####[facility] [address] [place], [address] Urea nitrogen [Mass/Vol] 44 mg/dL High 4-19 [facility] Comment on above: Performed By: #### L 500.2500, L100.0100 ####[facility] [address] [place], [address] Bedside Glucoseon 02-28-2025 FINGERSTICK GLU 157 mg/dL High 74-106 [facility] Comment on above: Result Comment: VI GEMENT OF PATIENT CARE PER NURSING PROTOCOL Performed By: #### L 501.080 ####[facility] [address] [place], [address] FINGERSTICK GLU 115 mg/dL High 74-106 [facility] Comment on above: Result Comment: VI GEMENT OF PATIENT CARE PER NURSING PROTOCOL Performed By: #### L 501.080 ####[facility] [address] [place], [address] FINGERSTICK GLU 88 mg/dL Normal 74-106 [facility] Comment on above: Result Comment: VI GEMENT OF PATIENT CARE PER NURSING PROTOCOL Performed By: #### L 501.080 ####[facility] [address] [place], [address] FINGERSTICK GLU 96 mg/dL Normal 74-106 [facility] Comment on above: Result Comment: VI GEMENT OF PATIENT CARE PER NURSING PROTOCOL Performed By: #### L 501.080 ####[facility] [address] [place], [address] Blood Gases by [facility] 025 Base excess Calc (Bld) [Moles/Vol] -8 mmol/L Low -2 to +2 [facility] Comment on above: Order Comment: Resul ts manually entered by BRIAN and verified by EBOLESon 02/28/2025 @ 1538 Performed By: #### L 9000.0800 ####[facility] [address] [place], [address] CO2 [Moles/Vol] 19 mmol/L Normal [facility] Comment on above: Order Comment: Resul ts manually entered by BRIAN and verified by EBOLESon 02/28/2025 @ 1538 Performed By: #### L 9000.0800 ####[facility] [address] [place], [address] SO2 91 Low 95-99 [facility] Comment on above: Order Comment: Resul ts manually entered by BRIAN and verified by EBOLESon 02/28/2025 @ 1538 Performed By: #### L 9000.0800 ####[facility] [address] [place], [address] DANIEL TEST Positive Normal [facility] Comment on above: Order Comment: Resul ts manually entered by BRIAN and verified by EBOLESon 02/28/2025 @ 1538 Performed By: #### L 9000.0800 ####[facility] [address] [place], [address] Blood Gas Type ART Normal [facility] Comment on above: Order Comment: Resul ts manually entered by BRIAN and verified by EBOLESon 02/28/2025 @ 1538 Performed By: #### L 9000.0800 ####[facility] [address] [place], [address] Comment SBT X1 HR Normal [facility] Comment on above: Order Comment: Resul ts manually entered by BRIAN and verified by EBOLESon 02/28/2025 @ 1538 Performed By: #### L 9000.0800 ####[facility] [address] [place], [address] FI02 21.0 Normal [facility] Comment on above: Order Comment: Resul ts manually entered by BRIAN and verified by EBOLESon 02/28/2025 @ 1538 Performed By: #### L 9000.0800 ####[facility] [address] [place], [address] HCO3 (Bld) [Moles/Vol] 17.8 mmol/L Low 22-26 [facility] Comment on above: Order Comment: Resul ts manually entered by BRIAN and verified by EBOLESon 02/28/2025 @ 1538 Performed By: #### L 9000.0800 ####[facility] [address] [place], [address] Mode SPONT Normal [facility] Comment on above: Order Comment: Resul ts manually entered by BRIAN and verified by EBOLESon 02/28/2025 @ 1538 Performed By: #### L 9000.0800 ####[facility] [address] [place], [address] pCO2 31.4 mmHg Low 35-45 [facility] Comment on above: Order Comment: Resul ts manually entered by BRIAN and verified by EBOLESon 02/28/2025 @ 1538 Performed By: #### L 9000.0800 ####[facility] [address] [place], [address] PEEP 5 Normal [facility] Comment on above: Order Comment: Resul ts manually entered by BRIAN and verified by EBOLESon 02/28/2025 @ 1538 Performed By: #### L 9000.0800 ####[facility] [address] [place], [address] pH (Bld) 7.36 [pH] Normal 7.35-7.45 [facility] Comment on above: Order Comment: Resul ts manually entered by BRIAN and verified by EBOLESon 02/28/2025 @ 1538 Performed By: #### L 9000.0800 ####[facility] [address] [place], [address] PO2 62 mmHG Low 75-100 [facility] Comment on above: Order Comment: Resul ts manually entered by BRIAN and verified by EBOLESon 02/28/2025 @ 1538 Performed By: #### L 9000.0800 ####[facility] [address] [place], [address] PS 5 Normal [facility] Comment on above: Order Comment: Resul ts manually entered by BRIAN and verified by EBOLESon 02/28/2025 @ 1538 Performed By: #### L 9000.0800 ####[facility] [address] [place], [address] Results To [facility] Comment on above: Order Comment: Resul ts manually entered by BRIAN and verified by EBOLESon 02/28/2025 @ 1538 Performed By: #### L 9000.0800 ####[facility] [address] [place], [address] SITE R RADIAL Normal [facility] Comment on above: Order Comment: Resul ts manually entered by BIRAN and verified by EBOLESon 02/28/2025 @ 1538 Performed By: #### L 9000.0800 ####[facility] [address] [place], [address] CBC W/Diff, Automatedon 06-0 Absolute Lymph 0.89 X10 3/uL Normal 0.83-4.51 [facility] Comment on above: Performed By: #### L 500.2500, L100.0100 ####[facility] [address] [place], [address] Absolute Neut 6.5 X10 3/uL Normal 2.0-7.7 [facility] Comment on above: Performed By: #### L 500.2500, L100.0100 ####[facility] [address] [place], [address] Basophils/100 WBC (Bld) 1.2 % High 0-1 [facility] Comment on above: Performed By: #### L 500.2500, L100.0100 ####[facility] [address] [place], [address] Eosinophils/100 WBC (Bld) 2.0 % Normal 0-5 [facility] Comment on above: Performed By: #### L 500.2500, L100.0100 ####[facility] [address] [place], [address] Erythrocyte distribution width (RBC) [Ratio] 18.8 % High 11.6-14.6 [facility] Comment on above: Performed By: #### L 500.2500, L100.0100 ####[facility] [address] [place], [address] Hematocrit (Bld) [Volume fraction] 30.1 % Low 37-47 [facility] Comment on above: Performed By: #### L 500.2500, L100.0100 ####[facility] [address] [place], [address] Hemoglobin (Bld) [Mass/Vol] 8.8 g/dL Low 12.0-15.0 [facility] Comment on above: Performed By: #### L 500.2500, L100.0100 ####[facility] [address] [place], [address] IG% 0.500 Normal 0.0-0.9 [facility] Comment on above: Result Comment: IG% - Immature Granulocytes (promyelocytes, myelocytes andmetamyelocytes) > 1% indicates that a LEFT SHIFT is Present. Performed By: #### L 500.2500, L100.0100 ####[facility] [address] [place], [address] Lymphocytes/100 WBC (Bld) 10.5 % Low 19-41 [facility] Comment on above: Performed By: #### L 500.2500, L100.0100 ####[facility] [address] [place], [address] MCH (RBC) [Entitic mass] 21.8 pg Low 27.0-32.0 [facility] Comment on above: Performed By: #### L 500.2500, L100.0100 ####[facility] [address] [place], [address] MCHC (RBC) [Mass/Vol] 29.2 g/dL Low 32-36 [facility] Comment on above: Performed By: #### L 500.2500, L100.0100 ####[facility] [address] [place], [address] MCV (RBC) [Entitic vol] 74.5 fL Low 81-99 [facility] Comment on above: Performed By: #### L 500.2500, L100.0100 ####[facility] [address] [place], [address] Monocytes/100 WBC (Bld) 9.0 % Normal 0-10 [facility] Comment on above: Performed By: #### L 500.2500, L100.0100 ####[facility] [address] [place], [address] Neutrophils/100 WBC (Bld) 76.8 % High 47-70 [facility] Comment on above: Performed By: #### L 500.2500, L100.0100 ####[facility] [address] [place], [address] Nucleated RBC (Bld) [#/Vol] 0 10*3/uL Normal 0-5 [facility] Comment on above: Performed By: #### L 500.2500, L100.0100 ####[facility] [address] [place], [address] Platelet mean volume (Bld) [Entitic vol] 9.6 fL Normal 6.2-12.0 [facility] Comment on above: Performed By: #### L 500.2500, L100.0100 ####[facility] [address] [place], [address] Platelets (Bld) [#/Vol] 399 10*3/uL Normal 150-450 [facility] Comment on above: Performed By: #### L 500.2500, L100.0100 ####[facility] [address] [place], [address] RBC (Bld) [#/Vol] 4.04 10*6/uL Low 4.2-5.[address] [facility] Comment on above: Performed By: #### L 500.2500, L100.0100 ####[facility] [address] [place], [address] RDW SD 50.6 fl High 35.1-43.9 [facility] Comment on above: Performed By: #### L 500.2500, L100.0100 ####[facility] [address] [place], [address] WBC (Bld) [#/Vol] 8.5 10*3/uL Normal 4.4-11.[address] [facility] Comment on above: Performed By: #### L 500.2500, L100.0100 ####[facility] [address] [place], [address] Basic Metabolic Profile (BMP )on 02-27-2025 BUN/CRE 33.3 RATIO High 10-20 [facility] Comment on above: Performed By: #### L 500.2500, L100.0100 ####[facility] [address] [place], [address] Calcium [Mass/Vol] 9.2 mg/dL Normal 7.6-11.[address] [facility] Comment on above: Performed By: #### L 500.2500, L100.0100 ####[facility] [address] [place], [address] Chloride [Moles/Vol] 101 mmol/L Normal 98-108 [facility] Comment on above: Performed By: #### L 500.2500, L100.0100 ####[facility] [address] [place], [address] CO2 [Moles/Vol] 20.1 mmol/L Low 21.0-32.0 [facility] Comment on above: Performed By: #### L 500.2500, L100.0100 ####[facility] [address] [place], [address] Creatinine [Mass/Vol] 1.36 mg/dL High 0.70-1.20 [facility] Comment on above: Performed By: #### L 500.2500, L100.0100 ####[facility] [address] [place], [address] ECRCL 42.51 ml/min Low 50-250 [facility] Comment on above: Performed By: #### L 500.2500, L100.0100 ####[facility] [address] [place], [address] GAP 17 High 5-15 [facility] Comment on above: Performed By: #### L 500.2500, L100.0100 ####[facility] [address] [place], [address] GFR/1.73 sq M.predicted among non-blacks MDRD (S/P/Bld) [Vol rate/Area] 40 mL/min/{1.73_m2} Low >60 [facility] Comment on above: Result Comment: mL/m in/1.73m2 CKD-EPI Creatinine Equation (2020) Performed By: #### L 500.2500, L100.0100 ####[facility] [address] [place], [address] Glucose [Mass/Vol] 106 mg/dL High 70-[address] [facility] Comment on above: Performed By: #### L 500.2500, L100.0100 ####[facility] [address] [place], [address] Potassium [Moles/Vol] 3.5 mmol/L Normal 3.3-5.1 [facility] Comment on above: Performed By: #### L 500.2500, L100.0100 ####[facility] [address] [place], [address] Sodium [Moles/Vol] 137 mmol/L Normal 133-[address] [facility] Comment on above: Performed By: #### L 500.2500, L100.0100 ####[facility] [address] [place], [address] Urea nitrogen [Mass/Vol] 45 mg/dL High 4-19 [facility] Comment on above: Performed By: #### L 500.2500, L100.0100 ####[facility] [address] [place], [address] Bedside Glucoseon 02-27-2025 FINGERSTICK GLU 92 mg/dL Normal 74-106 [facility] Comment on above: Result Comment: VI CHICOENT OF PATIENT CARE PER NURSING PROTOCOL Performed By: #### L 501.080 ####[facility] [address] [place], [address] FINGERSTICK GLU 77 mg/dL Normal 74-106 [facility] Comment on above: Result Comment: VI GEMENT OF PATIENT CARE PER NURSING PROTOCOL Performed By: #### L 501.080 ####[facility] [address] [place], [address] FINGERSTICK GLU 88 mg/dL Normal 74-106 [facility] Comment on above: Result Comment: VI GEMENT OF PATIENT CARE PER NURSING PROTOCOL Performed By: #### L 501.080 ####[facility] [address] [place], [address] FINGERSTICK GLU 89 mg/dL Normal 74-106 [facility] Comment on above: Result Comment: VI GEMENT OF PATIENT CARE PER NURSING PROTOCOL Performed By: #### L 501.080 ####[facility] [address] [place], [address] FINGERSTICK GLU 86 mg/dL Normal 74-106 [facility] Comment on above: Result Comment: VI GEMENT OF PATIENT CARE PER NURSING PROTOCOL Performed By: #### L 501.080 ####[facility] [address] [place], [address] CBC W/Diff, Automatedon 06-0 3-2024 Absolute Lymph 1.18 X10 3/uL Normal 0.83-4.51 [facility] Comment on above: Performed By: #### L 500.2500, L100.0100 ####[facility] [address] [place], [address] Absolute Neut 4.8 X10 3/uL Normal 2.0-7.7 [facility] Comment on above: Performed By: #### L 500.2500, L100.0100 ####[facility] [address] [place], [address] Basophils/100 WBC (Bld) 1.0 % Normal 0-1 [facility] Comment on above: Performed By: #### L 500.2500, L100.0100 ####[facility] [address] [place], [address] Eosinophils/100 WBC (Bld) 2.5 % Normal 0-5 [facility] Comment on above: Performed By: #### L 500.2500, L100.0100 ####[facility] [address] [place], [address] Erythrocyte distribution width (RBC) [Ratio] 18.7 % High 11.6-14.6 [facility] Comment on above: Performed By: #### L 500.2500, L100.0100 ####[facility] [address] [place], [address] Hematocrit (Bld) [Volume fraction] 29.0 % Low 37-47 [facility] Comment on above: Performed By: #### L 500.2500, L100.0100 ####[facility] [address] [place], [address] Hemoglobin (Bld) [Mass/Vol] 8.6 g/dL Low 12.0-15.0 [facility] Comment on above: Performed By: #### L 500.2500, L100.0100 ####[facility] [address] [place], [address] IG% 0.400 Normal 0.0-0.9 [facility] Comment on above: Result Comment: IG% - Immature Granulocytes (promyelocytes, myelocytes andmetamyelocytes) > 1% indicates that a LEFT SHIFT is Present. Performed By: #### L 500.2500, L100.0100 ####[facility] [address] [place], [address] Lymphocytes/100 WBC (Bld) 17.2 % Low 19-41 [facility] Comment on above: Performed By: #### L 500.2500, L100.0100 ####[facility] [address] [place], [address] MCH (RBC) [Entitic mass] 21.7 pg Low 27.0-32.0 [facility] Comment on above: Performed By: #### L 500.2500, L100.0100 ####[facility] [address] [place], [address] MCHC (RBC) [Mass/Vol] 29.7 g/dL Low 32-36 [facility] Comment on above: Performed By: #### L 500.2500, L100.0100 ####[facility] [address] [place], [address] MCV (RBC) [Entitic vol] 73.2 fL Low 81-99 [facility] Comment on above: Performed By: #### L 500.2500, L100.0100 ####[facility] [address] [place], [address] Monocytes/100 WBC (Bld) 8.3 % Normal 0-10 [facility] Comment on above: Performed By: #### L 500.2500, L100.0100 ####[facility] [address] [place], [address] Neutrophils/100 WBC (Bld) 70.6 % High 47-70 [facility] Comment on above: Performed By: #### L 500.2500, L100.0100 ####[facility] [address] [place], [address] Nucleated RBC (Bld) [#/Vol] 0 10*3/uL Normal 0-5 [facility] Comment on above: Performed By: #### L 500.2500, L100.0100 ####[facility] [address] [place], [address] Platelet mean volume (Bld) [Entitic vol] 9.6 fL Normal 6.2-12.0 [facility] Comment on above: Performed By: #### L 500.2500, L100.0100 ####[facility] [address] [place], [address] Platelets (Bld) [#/Vol] 428 10*3/uL Normal 150-450 [facility] Comment on above: Performed By: #### L 500.2500, L100.0100 ####[facility] [address] [place], [address] RBC (Bld) [#/Vol] 3.96 10*6/uL Low 4.2-5.[address] [facility] Comment on above: Performed By: #### L 500.2500, L100.0100 ####[facility] [address] [place], [address] RDW SD 49.3 fl High 35.1-43.9 [facility] Comment on above: Performed By: #### L 500.2500, L100.0100 ####[facility] [address] [place], [address] WBC (Bld) [#/Vol] 6.9 10*3/uL Normal 4.4-11.[address] [facility] Comment on above: Performed By: #### L 500.2500, L100.0100 ####[facility] [address] [place], [address] MR/POSTOP.ANEon 02-27-2025 MR/POSTOP.ANE Normal [facility] Operative Reporton Operative Report Normal [facility] Basic Metabolic Profile (BMP )on 02-26-2025 BUN/CRE 38.2 RATIO High 10-20 [facility] Comment on above: Performed By: #### L 500.2500, L100.0100 ####[facility] [address] [place], [address] Calcium [Mass/Vol] 8.8 mg/dL Normal 7.6-11.[address] [facility] Comment on above: Performed By: #### L 500.2500, L100.0100 ####[facility] [address] [place], [address] Chloride [Moles/Vol] 101 mmol/L Normal 98-108 [facility] Comment on above: Performed By: #### L 500.2500, L100.0100 ####[facility] [address] [place], [address] CO2 [Moles/Vol] 21.6 mmol/L Normal 21.0-32.0 [facility] Comment on above: Performed By: #### L 500.2500, L100.0100 ####[facility] [address] [place], [address] Creatinine [Mass/Vol] 1.35 mg/dL High 0.70-1.20 [facility] Comment on above: Performed By: #### L 500.2500, L100.0100 ####[facility] [address] [place], [address] ECRCL 43.09 ml/min Low 50-250 [facility] Comment on above: Performed By: #### L 500.2500, L100.0100 ####[facility] [address] [place], [address] GAP 13 Normal 5-15 [facility] Comment on above: Performed By: #### L 500.2500, L100.0100 ####[facility] [address] [place], [address] GFR/1.73 sq M.predicted among non-blacks MDRD (S/P/Bld) [Vol rate/Area] 41 mL/min/{1.73_m2} Low >60 [facility] Comment on above: Result Comment: mL/m in/1.73m2 CKD-EPI Creatinine Equation (2020) Performed By: #### L 500.2500, L100.0100 ####[facility] [address] [place], [address] Glucose [Mass/Vol] 75 mg/dL Normal 70-[address] [facility] Comment on above: Performed By: #### L 500.2500, L100.0100 ####[facility] [address] [place], [address] Potassium [Moles/Vol] 3.4 mmol/L Normal 3.3-5.1 [facility] Comment on above: Performed By: #### L 500.2500, L100.0100 ####[facility] [address] [place], [address] Sodium [Moles/Vol] 136 mmol/L Normal 133-[address] [facility] Comment on above: Performed By: #### L 500.2500, L100.0100 ####[facility] [address] [place], [address] Urea nitrogen [Mass/Vol] 52 mg/dL High 4-19 [facility] Comment on above: Performed By: #### L 500.2500, L100.0100 ####[facility] [address] [place], [address] Bedside Glucoseon 02-26-2025 FINGERSTICK GLU 94 mg/dL Normal 74-106 [facility] Comment on above: Result Comment: VI GEMENT OF PATIENT CARE PER NURSING PROTOCOL Performed By: #### L 501.080 ####[facility] [address] [place], [address] FINGERSTICK GLU 103 mg/dL Normal 74-106 [facility] Comment on above: Result Comment: VI GEMENT OF PATIENT CARE PER NURSING PROTOCOL Performed By: #### L 501.080 ####[facility] [address] [place], [address] FINGERSTICK GLU 92 mg/dL Normal 74-106 [facility] Comment on above: Result Comment: VI GEMENT OF PATIENT CARE PER NURSING PROTOCOL Performed By: #### L 501.080 ####[facility] [address] [place], [address] FINGERSTICK GLU 130 mg/dL High 74-106 [facility] Comment on above: Result Comment: VI GEMENT OF PATIENT CARE PER NURSING PROTOCOL Performed By: #### L 501.080 ####[facility] [address] [place], [address] FINGERSTICK GLU 59 mg/dL Low 74-106 [facility] Comment on above: Result Comment: VI GEMENT OF PATIENT CARE PER NURSING PROTOCOL Performed By: #### L 501.080 ####[facility] [address] [place], [address] FINGERSTICK GLU 73 mg/dL Low 74-106 [facility] Comment on above: Result Comment: VI GEMENT OF PATIENT CARE PER NURSING PROTOCOL Performed By: #### L 501.080 ####[facility] [address] [place], [address] Blood Gases by [facility] 025 DANIEL TEST Positive Normal [facility] Comment on above: Performed By: #### L 9000.0800 ####[facility] [address] [place], [address] Base excess Calc (Bld) [Moles/Vol] 2 mmol/L Normal -2 to +2 [facility] Comment on above: Performed By: #### L 9000.0800 ####[facility] [address] [place], [address] Blood Gas Type ART Normal [facility] Comment on above: Performed By: #### L 9000.0800 ####[facility] [address] [place], [address] CO2 [Moles/Vol] 26 mmol/L Normal [facility] Comment on above: Performed By: #### L 9000.0800 ####[facility] [address] [place], [address] FI02 25.0 Normal [facility] Comment on above: Performed By: #### L 9000.0800 ####[facility] [address] [place], [address] HCO3 (Bld) [Moles/Vol] 25.0 mmol/L Normal 22-26 [facility] Comment on above: Performed By: #### L 9000.0800 ####[facility] [address] [place], [address] Mode AC Normal [facility] Comment on above: Performed By: #### L 9000.0800 ####[facility] [address] [place], [address] O2 Delivery Dev Adult Vent Normal [facility] Comment on above: Performed By: #### L 9000.0800 ####[facility] [address] [place], [address] pCO2 33.6 mmHg Low 35-45 [facility] Comment on above: Performed By: #### L 9000.0800 ####[facility] [address] [place], [address] pH (Bld) 7.48 [pH] High 7.35-7.45 [facility] Comment on above: Performed By: #### L 9000.0800 ####[facility] [address] [place], [address] PO2 78 mmHG Normal 75-100 [facility] Comment on above: Performed By: #### L 9000.0800 ####[facility] [address] [place], [address] RR 14 Normal [facility] Comment on above: Performed By: #### L 9000.0800 ####[facility] [address] [place], [address] SITE L Radial Normal [facility] Comment on above: Performed By: #### L 9000.0800 ####[facility] [address] [place], [address] SO2 97 Normal 95-99 [facility] Comment on above: Performed By: #### L 9000.0800 ####[facility] [address] [place], [address] Vt 450.0 mL Normal [facility] Comment on above: Performed By: #### L 9000.0800 ####[facility] [address] [place], [address] CBC W/Diff, Automatedon 06-0 2-2025 Absolute Lymph 1.06 X10 3/uL Normal 0.83-4.51 [facility] Comment on above: Performed By: #### L 500.2500, L100.0100 ####[facility] [address] [place], [address] Absolute Neut 5.3 X10 3/uL Normal 2.0-7.7 [facility] Comment on above: Performed By: #### L 500.2500, L100.0100 ####[facility] [address] [place], [address] Basophils/100 WBC (Bld) 0.8 % Normal 0-1 [facility] Comment on above: Performed By: #### L 500.2500, L100.0100 ####[facility] [address] [place], [address] Eosinophils/100 WBC (Bld) 2.4 % Normal 0-5 [facility] Comment on above: Performed By: #### L 500.2500, L100.0100 ####[facility] [address] [place], [address] Erythrocyte distribution width (RBC) [Ratio] 18.7 % High 11.6-14.6 [facility] Comment on above: Performed By: #### L 500.2500, L100.0100 ####[facility] [address] [place], [address] Hematocrit (Bld) [Volume fraction] 27.9 % Low 37-47 [facility] Comment on above: Performed By: #### L 500.2500, L100.0100 ####[facility] [address] [place], [address] Hemoglobin (Bld) [Mass/Vol] 8.2 g/dL Low 12.0-15.0 [facility] Comment on above: Performed By: #### L 500.2500, L100.0100 ####[facility] [address] [place], [address] IG% 0.400 Normal 0.0-0.9 [facility] Comment on above: Result Comment: IG% - Immature Granulocytes (promyelocytes, myelocytes andmetamyelocytes) > 1% indicates that a LEFT SHIFT is Present. Performed By: #### L 500.2500, L100.0100 ####[facility] [address] [place], [address] Lymphocytes/100 WBC (Bld) 14.4 % Low 19-41 [facility] Comment on above: Performed By: #### L 500.2500, L100.0100 ####[facility] [address] [place], [address] MCH (RBC) [Entitic mass] 21.6 pg Low 27.0-32.0 [facility] Comment on above: Performed By: #### L 500.2500, L100.0100 ####[facility] [address] [place], [address] MCHC (RBC) [Mass/Vol] 29.4 g/dL Low 32-36 [facility] Comment on above: Performed By: #### L 500.2500, L100.0100 ####[facility] [address] [place], [address] MCV (RBC) [Entitic vol] 73.4 fL Low 81-99 [facility] Comment on above: Performed By: #### L 500.2500, L100.0100 ####[facility] [address] [place], [address] Monocytes/100 WBC (Bld) 9.5 % Normal 0-10 [facility] Comment on above: Performed By: #### L 500.2500, L100.0100 ####[facility] [address] [place], [address] Neutrophils/100 WBC (Bld) 72.5 % High 47-70 [facility] Comment on above: Performed By: #### L 500.2500, L100.0100 ####[facility] [address] [place], [address] Nucleated RBC (Bld) [#/Vol] 0 10*3/uL Normal 0-5 [facility] Comment on above: Performed By: #### L 500.2500, L100.0100 ####[facility] [address] [place], [address] Platelet mean volume (Bld) [Entitic vol] 9.9 fL Normal 6.2-12.0 [facility] Comment on above: Performed By: #### L 500.2500, L100.0100 ####[facility] [address] [place], [address] Platelets (Bld) [#/Vol] 407 10*3/uL Normal 150-450 [facility] Comment on above: Performed By: #### L 500.2500, L100.0100 ####[facility] [address] [place], [address] RBC (Bld) [#/Vol] 3.80 10*6/uL Low 4.2-5.[address] [facility] Comment on above: Performed By: #### L 500.2500, L100.0100 ####[facility] [address] [place], [address] RDW SD 49.4 fl High 35.1-43.9 [facility] Comment on above: Performed By: #### L 500.2500, L100.0100 ####[facility] [address] [place], [address] WBC (Bld) [#/Vol] 7.4 10*3/uL Normal 4.4-11.[address] [facility] Comment on above: Performed By: #### L 500.2500, L100.0100 ####[facility] [address] [place], [address] Chest 1 View (Portable)on Chest 1 View (Portable) Normal [facility] Abdomen Single View (Portabl e)on 02-25-2025 Abdomen Single View (Portable) Normal [facility] Basic Metabolic Profile (BMP )on 02-25-2025 BUN/CRE 38.5 RATIO High 10-20 [facility] Comment on above: Performed By: #### L 501.5200, L100.0100, L500.2500 ####[facility] [address] [place], [address] Calcium [Mass/Vol] 8.9 mg/dL Normal 7.6-11.[address] [facility] Comment on above: Performed By: #### L 501.5200, L100.0100, L500.2500 ####[facility] [address] [place], [address] Chloride [Moles/Vol] 102 mmol/L Normal 98-108 [facility] Comment on above: Performed By: #### L 501.5200, L100.0100, L500.2500 ####[facility] [address] [place], [address] CO2 [Moles/Vol] 21.0 mmol/L Normal 21.0-32.0 [facility] Comment on above: Performed By: #### L 501.5200, L100.0100, L500.2500 ####[facility] [address] [place], [address] Creatinine [Mass/Vol] 1.51 mg/dL High 0.70-1.20 [facility] Comment on above: Performed By: #### L 501.5200, L100.0100, L500.2500 ####[facility] [address] [place], [address] ECRCL 38.65 ml/min Low 50-250 [facility] Comment on above: Performed By: #### L 501.5200, L100.0100, L500.2500 ####[facility] [address] [place], [address] GAP 14 Normal 5-15 [facility] Comment on above: Performed By: #### L 501.5200, L100.0100, L500.2500 ####[facility] [address] [place], [address] GFR/1.73 sq M.predicted among non-blacks MDRD (S/P/Bld) [Vol rate/Area] 36 mL/min/{1.73_m2} Low >60 [facility] Comment on above: Result Comment: mL/m in/1.73m2 CKD-EPI Creatinine Equation (2020) Performed By: #### L 501.5200, L100.0100, L500.2500 ####[facility] [address] [place], [address] Glucose [Mass/Vol] 119 mg/dL High 70-[address] [facility] Comment on above: Performed By: #### L 501.5200, L100.0100, L500.2500 ####[facility] [address] [place], [address] Potassium [Moles/Vol] 3.9 mmol/L Normal 3.3-5.1 [facility] Comment on above: Performed By: #### L 501.5200, L100.0100, L500.2500 ####[facility] [address] [place], [address] Sodium [Moles/Vol] 137 mmol/L Normal 133-[address] [facility] Comment on above: Performed By: #### L 501.5200, L100.0100, L500.2500 ####[facility] [address] [place], [address] Urea nitrogen [Mass/Vol] 58 mg/dL High 4-19 [facility] Comment on above: Performed By: #### L 501.5200, L100.0100, L500.2500 ####[facility] [address] [place], [address] Bedside Glucoseon 02-25-2025 FINGERSTICK GLU 77 mg/dL Normal 74-106 [facility] Comment on above: Result Comment: VI GEMENT OF PATIENT CARE PER NURSING PROTOCOL Performed By: #### L 501.080 ####[facility] [address] [place], [address] FINGERSTICK GLU 97 mg/dL Normal 74-106 [facility] Comment on above: Result Comment: VI GEMENT OF PATIENT CARE PER NURSING PROTOCOL Performed By: #### L 501.080 ####[facility] [address] [place], [address] FINGERSTICK GLU 115 mg/dL High 74-106 [facility] Comment on above: Result Comment: VI GEMENT OF PATIENT CARE PER NURSING PROTOCOL Performed By: #### L 501.080 ####[facility] [address] [place], [address] FINGERSTICK GLU 120 mg/dL High 74-106 [facility] Comment on above: Result Comment: VI GEMENT OF PATIENT CARE PER NURSING PROTOCOL Performed By: #### L 501.080 ####[facility] [address] [place], [address] Blood Gases by [facility] 025 Base excess Calc (Bld) [Moles/Vol] 2 mmol/L Normal -2 to +2 [facility] Comment on above: Performed By: #### L 9000.0800 ####[facility] [address] [place], [address] Blood Gas Type ART Normal [facility] Comment on above: Performed By: #### L 9000.0800 ####[facility] [address] [place], [address] CO2 [Moles/Vol] 27 mmol/L Normal [facility] Comment on above: Performed By: #### L 9000.0800 ####[facility] [address] [place], [address] FI02 25.0 Normal [facility] Comment on above: Performed By: #### L 9000.0800 ####[facility] [address] [place], [address] HCO3 (Bld) [Moles/Vol] 25.6 mmol/L Normal 22-26 [facility] Comment on above: Performed By: #### L 9000.0800 ####[facility] [address] [place], [address] Mode AC Normal [facility] Comment on above: Performed By: #### L 9000.0800 ####[facility] [address] [place], [address] O2 Delivery Dev Adult Vent Normal [facility] Comment on above: Performed By: #### L 0.08 ####[facility] [address] [place], [address] pCO2 32.7 mmHg Low 35-45 [facility] Comment on above: Performed By: #### L 0.0800 ####[facility] [address] [place], [address] PEEP 5 Normal [facility] Comment on above: Performed By: #### L 0.0800 ####[facility] [address] [place], [address] pH (Bld) 7.50 [pH] High 7.35-7.45 [facility] Comment on above: Performed By: #### L 8999.0800 ####[facility] [address] [place], [address] PO2 82 mmHG Normal 75-100 [facility] Comment on above: Performed By: #### L 0.0800 ####[facility] [address] [place], [address] RR 14 Normal [facility] Comment on above: Performed By: #### L 8999.0800 ####[facility] [address] [place], [address] SITE L Brach Normal [facility] Comment on above: Performed By: #### L 8999.0800 ####[facility] [address] [place], [address] SO2 97 Normal 95-99 [facility] Comment on above: Performed By: #### L 0.0800 ####[facility] [address] [place], [address] Vt 450.0 mL Normal [facility] Comment on above: Performed By: #### L 9000.0800 ####[facility] [address] [place], [address] CBC W/Diff, Automatedon 06-0 1-2025 Absolute Lymph 0.96 X10 3/uL Normal 0.83-4.51 [facility] Comment on above: Performed By: #### L 501.5200, L100.0100, L500.2500 ####[facility] [address] [place], [address] Absolute Neut 5.2 X10 3/uL Normal 2.0-7.7 [facility] Comment on above: Performed By: #### L 501.5200, L100.0100, L500.2500 ####[facility] [address] [place], [address] Basophils/100 WBC (Bld) 1.0 % Normal 0-1 [facility] Comment on above: Performed By: #### L 501.5200, L100.0100, L500.2500 ####[facility] [address] [place], [address] Eosinophils/100 WBC (Bld) 2.5 % Normal 0-5 [facility] Comment on above: Performed By: #### L 501.5200, L100.0100, L500.2500 ####[facility] [address] [place], [address] Erythrocyte distribution width (RBC) [Ratio] 18.8 % High 11.6-14.6 [facility] Comment on above: Performed By: #### L 501.5200, L100.0100, L500.2500 ####[facility] [address] [place], [address] Hematocrit (Bld) [Volume fraction] 27.1 % Low 37-47 [facility] Comment on above: Performed By: #### L 501.5200, L100.0100, L500.2500 ####[facility] [address] [place], [address] Hemoglobin (Bld) [Mass/Vol] 8.0 g/dL Low 12.0-15.0 [facility] Comment on above: Performed By: #### L 501.5200, L100.0100, L500.2500 ####[facility] [address] [place], [address] IG% 0.300 Normal 0.0-0.9 [facility] Comment on above: Result Comment: IG% - Immature Granulocytes (promyelocytes, myelocytes andmetamyelocytes) > 1% indicates that a LEFT SHIFT is Present. Performed By: #### L 501.5200, L100.0100, L500.2500 ####[facility] [address] [place], [address] Lymphocytes/100 WBC (Bld) 13.5 % Low 19-41 [facility] Comment on above: Performed By: #### L 501.5200, L100.0100, L500.2500 ####[facility] [address] [place], [address] MCH (RBC) [Entitic mass] 21.6 pg Low 27.0-32.0 [facility] Comment on above: Performed By: #### L 501.5200, L100.0100, L500.2500 ####[facility] [address] [place], [address] MCHC (RBC) [Mass/Vol] 29.5 g/dL Low 32-36 [facility] Comment on above: Performed By: #### L 501.5200, L100.0100, L500.2500 ####[facility] [address] [place], [address] MCV (RBC) [Entitic vol] 73.2 fL Low 81-99 [facility] Comment on above: Performed By: #### L 501.5200, L100.0100, L500.2500 ####[facility] [address] [place], [address] Monocytes/100 WBC (Bld) 8.9 % Normal 0-10 [facility] Comment on above: Performed By: #### L 501.5200, L100.0100, L500.2500 ####[facility] [address] [place], [address] Neutrophils/100 WBC (Bld) 73.8 % High 47-70 [facility] Comment on above: Performed By: #### L 501.5200, L100.0100, L500.2500 ####[facility] [address] [place], [address] Nucleated RBC (Bld) [#/Vol] 0 10*3/uL Normal 0-5 [facility] Comment on above: Performed By: #### L 501.5200, L100.0100, L500.2500 ####[facility] [address] [place], [address] Platelet mean volume (Bld) [Entitic vol] 10.6 fL Normal 6.2-12.0 [facility] Comment on above: Performed By: #### L 501.5200, L100.0100, L500.2500 ####[facility] [address] [place], [address] Platelets (Bld) [#/Vol] 397 10*3/uL Normal 150-450 [facility] Comment on above: Performed By: #### L 501.5200, L100.0100, L500.2500 ####[facility] [address] [place], [address] RBC (Bld) [#/Vol] 3.70 10*6/uL Low 4.2-5.[address] [facility] Comment on above: Performed By: #### L 501.5200, L100.0100, L500.2500 ####[facility] [address] [place], [address] RDW SD 50.0 fl High 35.1-43.9 [facility] Comment on above: Performed By: #### L 501.5200, L100.0100, L500.2500 ####[facility] [address] [place], [address] WBC (Bld) [#/Vol] 7.1 10*3/uL Normal 4.4-11.[address] [facility] Comment on above: Performed By: #### L 501.5200, L100.0100, L500.2500 ####[facility] [address] [place], [address] Magnesiumon 02-25-2025 Magnesium [Mass/Vol] 1.9 mg/dL Normal 1.5-2.2 [facility] Comment on above: Performed By: #### L 501.5200, L100.0100, L500.2500 ####[facility] [address] [place], [address] Phosphoruson 02-25-2025 Phosphate [Mass/Vol] 3.7 mg/dL Normal 2.7-4.5 [facility] Comment on above: Performed By: #### L 501.2300 ####[facility] [address] [place], [address] Basic Metabolic Profile (BMP )on 02-24-2025 BUN/CRE 37.1 RATIO High 10-20 [facility] Comment on above: Performed By: #### L 500.2500, L100.0100 ####[facility] [address] [place], [address] Calcium [Mass/Vol] 8.8 mg/dL Normal 7.6-11.[address] [facility] Comment on above: Performed By: #### L 500.2500, L100.0100 ####[facility] [address] [place], [address] Chloride [Moles/Vol] 99 mmol/L Normal 98-108 [facility] Comment on above: Performed By: #### L 500.2500, L100.0100 ####[facility] [address] [place], [address] CO2 [Moles/Vol] 21.0 mmol/L Normal 21.0-32.0 [facility] Comment on above: Performed By: #### L 500.2500, L100.0100 ####[facility] [address] [place], [address] Creatinine [Mass/Vol] 1.67 mg/dL High 0.70-1.20 [facility] Comment on above: Performed By: #### L 500.2500, L100.0100 ####[facility] [address] [place], [address] ECRCL 34.98 ml/min Low 50-250 [facility] Comment on above: Performed By: #### L 500.2500, L100.0100 ####[facility] [address] [place], [address] GAP 14 Normal 5-15 [facility] Comment on above: Performed By: #### L 500.2500, L100.0100 ####[facility] [address] [place], [address] GFR/1.73 sq M.predicted among non-blacks MDRD (S/P/Bld) [Vol rate/Area] 32 mL/min/{1.73_m2} Low >60 [facility] Comment on above: Result Comment: mL/m in/1.73m2 CKD-EPI Creatinine Equation (2020) Performed By: #### L 500.2500, L100.0100 ####[facility] [address] [place], [address] Glucose [Mass/Vol] 109 mg/dL High 70-[address] [facility] Comment on above: Performed By: #### L 500.2500, L100.0100 ####[facility] [address] [place], [address] Potassium [Moles/Vol] 3.4 mmol/L Normal 3.3-5.1 [facility] Comment on above: Performed By: #### L 500.2500, L100.0100 ####[facility] [address] [place], [address] Sodium [Moles/Vol] 134 mmol/L Normal 133-[address] [facility] Comment on above: Performed By: #### L 500.2500, L100.0100 ####[facility] [address] [place], [address] Urea nitrogen [Mass/Vol] 62 mg/dL High 4-19 [facility] Comment on above: Performed By: #### L 500.2500, L100.0100 ####[facility] [address] [place], [address] Bedside Glucoseon 02-24-2025 FINGERSTICK GLU 119 mg/dL High 74-106 [facility] Comment on above: Result Comment: VI GEMENT OF PATIENT CARE PER NURSING PROTOCOL Performed By: #### L 501.080 ####[facility] [address] [place], [address] FINGERSTICK GLU 99 mg/dL Normal 74-106 [facility] Comment on above: Result Comment: VI GEMENT OF PATIENT CARE PER NURSING PROTOCOL Performed By: #### L 501.080 ####[facility] [address] [place], [address] FINGERSTICK GLU 99 mg/dL Normal 74-106 [facility] Comment on above: Result Comment: VI GEMENT OF PATIENT CARE PER NURSING PROTOCOL Performed By: #### L 501.080 ####[facility] [address] [place], [address] FINGERSTICK GLU 97 mg/dL Normal 74-106 [facility] Comment on above: Result Comment: VI GEMENT OF PATIENT CARE PER NURSING PROTOCOL Performed By: #### L 501.080 ####[facility] [address] [place], [address] FINGERSTICK GLU 112 mg/dL High 74-106 [facility] Comment on above: Result Comment: VI GEMENT OF PATIENT CARE PER NURSING PROTOCOL Performed By: #### L 501.080 ####[facility] [address] [place], [address] FINGERSTICK GLU 162 mg/dL High 74-106 [facility] Comment on above: Result Comment: VI GEMENT OF PATIENT CARE PER NURSING PROTOCOL Performed By: #### L 501.080 ####[facility] [address] [place], [address] FINGERSTICK GLU 61 mg/dL Low 74-106 [facility] Comment on above: Result Comment: VI GEMENT OF PATIENT CARE PER NURSING PROTOCOL Performed By: #### L 501.080 ####[facility] [address] [place], [address] FINGERSTICK GLU 73 mg/dL Low 74-106 [facility] Comment on above: Result Comment: VI GEMENT OF PATIENT CARE PER NURSING PROTOCOL Performed By: #### L 501.080 ####[facility] [address] [place], [address] CBC W/Diff, Automatedon 05-3 Absolute Lymph 0.89 X10 3/uL Normal 0.83-4.51 [facility] Comment on above: Performed By: #### L 500.2500, L100.0100 ####[facility] [address] [place], [address] Absolute Neut 6.8 X10 3/uL Normal 2.0-7.7 [facility] Comment on above: Performed By: #### L 500.2500, L100.0100 ####[facility] [address] [place], [address] Basophils/100 WBC (Bld) 0.7 % Normal 0-1 [facility] Comment on above: Performed By: #### L 500.2500, L100.0100 ####[facility] [address] [place], [address] Eosinophils/100 WBC (Bld) 2.5 % Normal 0-5 [facility] Comment on above: Performed By: #### L 500.2500, L100.0100 ####[facility] [address] [place], [address] Erythrocyte distribution width (RBC) [Ratio] 18.9 % High 11.6-14.6 [facility] Comment on above: Performed By: #### L 500.2500, L100.0100 ####[facility] [address] [place], [address] Hematocrit (Bld) [Volume fraction] 27.9 % Low 37-47 [facility] Comment on above: Performed By: #### L 500.2500, L100.0100 ####[facility] [address] [place], [address] Hemoglobin (Bld) [Mass/Vol] 8.3 g/dL Low 12.0-15.0 [facility] Comment on above: Performed By: #### L 500.2500, L100.0100 ####[facility] [address] [place], [address] IG% 0.500 Normal 0.0-0.9 [facility] Comment on above: Result Comment: IG% - Immature Granulocytes (promyelocytes, myelocytes andmetamyelocytes) > 1% indicates that a LEFT SHIFT is Present. Performed By: #### L 500.2500, L100.0100 ####[facility] [address] [place], [address] Lymphocytes/100 WBC (Bld) 10.2 % Low 19-41 [facility] Comment on above: Performed By: #### L 500.2500, L100.0100 ####[facility] [address] [place], [address] MCH (RBC) [Entitic mass] 21.8 pg Low 27.0-32.0 [facility] Comment on above: Performed By: #### L 500.2500, L100.0100 ####[facility] [address] [place], [address] MCHC (RBC) [Mass/Vol] 29.7 g/dL Low 32-36 [facility] Comment on above: Performed By: #### L 500.2500, L100.0100 ####[facility] [address] [place], [address] MCV (RBC) [Entitic vol] 73.2 fL Low 81-99 [facility] Comment on above: Performed By: #### L 500.2500, L100.0100 ####[facility] [address] [place], [address] Monocytes/100 WBC (Bld) 8.0 % Normal 0-10 [facility] Comment on above: Performed By: #### L 500.2500, L100.0100 ####[facility] [address] [place], [address] Neutrophils/100 WBC (Bld) 78.1 % High 47-70 [facility] Comment on above: Performed By: #### L 500.2500, L100.0100 ####[facility] [address] [place], [address] Nucleated RBC (Bld) [#/Vol] 0 10*3/uL Normal 0-5 [facility] Comment on above: Performed By: #### L 500.2500, L100.0100 ####[facility] [address] [place], [address] Platelet mean volume (Bld) [Entitic vol] 10.0 fL Normal 6.2-12.0 [facility] Comment on above: Performed By: #### L 500.2500, L100.0100 ####[facility] [address] [place], [address] Platelets (Bld) [#/Vol] 402 10*3/uL Normal 150-450 [facility] Comment on above: Performed By: #### L 500.2500, L100.0100 ####[facility] [address] [place], [address] RBC (Bld) [#/Vol] 3.81 10*6/uL Low 4.2-5.[address] [facility] Comment on above: Performed By: #### L 500.2500, L100.0100 ####[facility] [address] [place], [address] RDW SD 49.6 fl High 35.1-43.9 [facility] Comment on above: Performed By: #### L 500.2500, L100.0100 ####[facility] [address] [place], [address] WBC (Bld) [#/Vol] 8.7 10*3/uL Normal 4.4-11.[address] [facility] Comment on above: Performed By: #### L 500.2500, L100.0100 ####[facility] [address] [place], [address] Basic Metabolic Profile (BMP )on 02-23-2025 BUN/CRE 33.4 RATIO High 10-20 [facility] Comment on above: Performed By: #### L 100.0100, L500.2500 ####[facility] [address] [place], [address] Calcium [Mass/Vol] 8.8 mg/dL Normal 7.6-11.[address] [facility] Comment on above: Performed By: #### L 100.0100, L500.2500 ####[facility] [address] [place], [address] Chloride [Moles/Vol] 98 mmol/L Normal 98-108 [facility] Comment on above: Performed By: #### L 100.0100, L500.2500 ####[facility] [address] [place], [address] CO2 [Moles/Vol] 20.9 mmol/L Low 21.0-32.0 [facility] Comment on above: Performed By: #### L 100.0100, L500.2500 ####[facility] [address] [place], [address] Creatinine [Mass/Vol] 1.86 mg/dL High 0.70-1.20 [facility] Comment on above: Performed By: #### L 100.0100, L500.2500 ####[facility] [address] [place], [address] ECRCL 31.46 ml/min Low 50-250 [facility] Comment on above: Performed By: #### L 100.0100, L500.2500 ####[facility] [address] [place], [address] GAP 12 Normal 5-15 [facility] Comment on above: Performed By: #### L 100.0100, L500.2500 ####[facility] [address] [place], [address] GFR/1.73 sq M.predicted among non-blacks MDRD (S/P/Bld) [Vol rate/Area] 28 mL/min/{1.73_m2} Low >60 [facility] Comment on above: Result Comment: mL/m in/1.73m2 CKD-EPI Creatinine Equation (2020) Performed By: #### L 100.0100, L500.2500 ####[facility] [address] [place], [address] Glucose [Mass/Vol] 47 mg/dL Low 70-[address] [facility] Comment on above: Performed By: #### L 100.0100, L500.2500 ####[facility] [address] [place], [address] Potassium [Moles/Vol] 3.3 mmol/L Normal 3.3-5.1 [facility] Comment on above: Performed By: #### L 100.0100, L500.2500 ####[facility] [address] [place], [address] Sodium [Moles/Vol] 130 mmol/L Low 133-[address] [facility] Comment on above: Performed By: #### L 100.0100, L500.2500 ####[facility] [address] [place], [address] Urea nitrogen [Mass/Vol] 62 mg/dL High 4-19 [facility] Comment on above: Performed By: #### L 100.0100, L500.2500 ####[facility] [address] [place], [address] Bedside Glucoseon 02-23-2025 FINGERSTICK GLU 88 mg/dL Normal 74-106 [facility] Comment on above: Result Comment: VI MONTEJO OF PATIENT CARE PER NURSING PROTOCOL Performed By: #### L 501.080 ####[facility] [address] [place], [address] FINGERSTICK GLU 73 mg/dL Low 74-106 [facility] Comment on above: Result Comment: VI GEMENT OF PATIENT CARE PER NURSING PROTOCOL Performed By: #### L 501.080 ####[facility] [address] [place], [address] FINGERSTICK GLU 117 mg/dL High 74-106 [facility] Comment on above: Result Comment: VI GEMENT OF PATIENT CARE PER NURSING PROTOCOL Performed By: #### L 501.080 ####[facility] [address] [place], [address] FINGERSTICK GLU 43 mg/dL Invalid Interpretation Code 74-106 [facility] Comment on above: Result Comment: VI GEMENT OF PATIENT CARE PER NURSING PROTOCOL Performed By: #### L 501.080 ####[facility] [address] [place], [address] FINGERSTICK GLU 99 mg/dL Normal 74-106 [facility] Comment on above: Result Comment: VI GEMENT OF PATIENT CARE PER NURSING PROTOCOL Performed By: #### L 501.080 ####[facility] [address] [place], [address] Blood Gases by [facility] 025 DANIEL TEST Positive Normal [facility] Comment on above: Performed By: #### L 9000.0800 ####[facility] [address] [place], [address] Base excess Calc (Bld) [Moles/Vol] 1 mmol/L Normal -2 to +2 [facility] Comment on above: Performed By: #### L 9000.0800 ####[facility] [address] [place], [address] Blood Gas Type ART Normal [facility] Comment on above: Performed By: #### L 9000.0800 ####[facility] [address] [place], [address] CO2 [Moles/Vol] 25 mmol/L Normal [facility] Comment on above: Performed By: #### L 9000.0800 ####[facility] [address] [place], [address] FI02 25.0 Normal [facility] Comment on above: Performed By: #### L 8999.0800 ####[facility] [address] [place], [address] HCO3 (Bld) [Moles/Vol] 24.3 mmol/L Normal 22-26 [facility] Comment on above: Performed By: #### L 0.08 ####[facility] [address] [place], [address] Mode AC Normal [facility] Comment on above: Performed By: #### L 0.0800 ####[facility] [address] [place], [address] O2 Delivery Dev ET Tube Normal [facility] Comment on above: Performed By: #### L 9000.0800 ####[facility] [address] [place], [address] pCO2 33.8 mmHg Low 35-45 [facility] Comment on above: Performed By: #### L 8999.0800 ####[facility] [address] [place], [address] PEEP 5 Normal [facility] Comment on above: Performed By: #### L 8999.0800 ####[facility] [address] [place], [address] pH (Bld) 7.46 [pH] High 7.35-7.45 [facility] Comment on above: Performed By: #### L 0.0800 ####[facility] [address] [place], [address] PO2 73 mmHG Low 75-100 [facility] Comment on above: Performed By: #### L 9000.0800 ####[facility] [address] [place], [address] RR 14 Normal [facility] Comment on above: Performed By: #### L 9000.0800 ####[facility] [address] [place], [address] SITE R Radial Normal [facility] Comment on above: Performed By: #### L 9000.0800 ####[facility] [address] [place], [address] SO2 96 Normal 95-99 [facility] Comment on above: Performed By: #### L 9000.0800 ####[facility] [address] [place], [address] Vt 450.0 mL Normal [facility] Comment on above: Performed By: #### L 9000.0800 ####[facility] [address] [place], [address] CBC W/Diff, Automatedon 05-3 0-2025 Absolute Lymph 1.04 X10 3/uL Normal 0.83-4.51 [facility] Comment on above: Performed By: #### L 100.0100, L500.2500 ####[facility] [address] [place], [address] Absolute Neut 7.1 X10 3/uL Normal 2.0-7.7 [facility] Comment on above: Performed By: #### L 100.0100, L500.2500 ####[facility] [address] [place], [address] Basophils/100 WBC (Bld) 0.5 % Normal 0-1 [facility] Comment on above: Performed By: #### L 100.0100, L500.2500 ####[facility] [address] [place], [address] Eosinophils/100 WBC (Bld) 2.0 % Normal 0-5 [facility] Comment on above: Performed By: #### L 100.0100, L500.2500 ####[facility] [address] [place], [address] Erythrocyte distribution width (RBC) [Ratio] 19.4 % High 11.6-14.6 [facility] Comment on above: Performed By: #### L 100.0100, L500.2500 ####[facility] [address] [place], [address] Hematocrit (Bld) [Volume fraction] 27.5 % Low 37-47 [facility] Comment on above: Performed By: #### L 100.0100, L500.2500 ####[facility] [address] [place], [address] Hemoglobin (Bld) [Mass/Vol] 8.2 g/dL Low 12.0-15.0 [facility] Comment on above: Performed By: #### L 100.0100, L500.2500 ####[facility] [address] [place], [address] IG% 0.400 Normal 0.0-0.9 [facility] Comment on above: Result Comment: IG% - Immature Granulocytes (promyelocytes, myelocytes andmetamyelocytes) > 1% indicates that a LEFT SHIFT is Present. Performed By: #### L 100.0100, L500.2500 ####[facility] [address] [place], [address] Lymphocytes/100 WBC (Bld) 11.4 % Low 19-41 [facility] Comment on above: Performed By: #### L 100.0100, L500.2500 ####[facility] [address] [place], [address] MCH (RBC) [Entitic mass] 21.6 pg Low 27.0-32.0 [facility] Comment on above: Performed By: #### L 100.0100, L500.2500 ####[facility] [address] [place], [address] MCHC (RBC) [Mass/Vol] 29.8 g/dL Low 32-36 [facility] Comment on above: Performed By: #### L 100.0100, L500.2500 ####[facility] [address] [place], [address] MCV (RBC) [Entitic vol] 72.6 fL Low 81-99 [facility] Comment on above: Performed By: #### L 100.0100, L500.2500 ####[facility] [address] [place], [address] Monocytes/100 WBC (Bld) 7.3 % Normal 0-10 [facility] Comment on above: Performed By: #### L 100.0100, L500.2500 ####[facility] [address] [place], [address] Neutrophils/100 WBC (Bld) 78.4 % High 47-70 [facility] Comment on above: Performed By: #### L 100.0100, L500.2500 ####[facility] [address] [place], [address] Nucleated RBC (Bld) [#/Vol] 0 10*3/uL Normal 0-5 [facility] Comment on above: Performed By: #### L 100.0100, L500.2500 ####[facility] [address] [place], [address] Platelet mean volume (Bld) [Entitic vol] 10.2 fL Normal 6.2-12.0 [facility] Comment on above: Performed By: #### L 100.0100, L500.2500 ####[facility] [address] [place], [address] Platelets (Bld) [#/Vol] 398 10*3/uL Normal 150-450 [facility] Comment on above: Performed By: #### L 100.0100, L500.2500 ####[facility] [address] [place], [address] RBC (Bld) [#/Vol] 3.79 10*6/uL Low 4.2-5.[address] [facility] Comment on above: Performed By: #### L 100.0100, L500.2500 ####[facility] [address] [place], [address] RDW SD 50.0 fl High 35.1-43.9 [facility] Comment on above: Performed By: #### L 100.0100, L500.2500 ####[facility] [address] [place], [address] WBC (Bld) [#/Vol] 9.1 10*3/uL Normal 4.4-11.[address] [facility] Comment on above: Performed By: #### L 100.0100, L500.2500 ####[facility] [address] [place], [address] Chest 1 View (Portable)on Chest 1 View (Portable) Normal [facility] Basic Metabolic Profile (BMP )on 02-22-2025 BUN/CRE 32.7 RATIO High 10-20 [facility] Comment on above: Performed By: #### L 500.2500, L100.0100 ####[facility] [address] [place], [address] Calcium [Mass/Vol] 9.0 mg/dL Normal 7.6-11.[address] [facility] Comment on above: Performed By: #### L 500.2500, L100.0100 ####[facility] [address] [place], [address] Chloride [Moles/Vol] 99 mmol/L Normal 98-108 [facility] Comment on above: Performed By: #### L 500.2500, L100.0100 ####[facility] [address] [place], [address] CO2 [Moles/Vol] 20.6 mmol/L Low 21.0-32.0 [facility] Comment on above: Performed By: #### L 500.2500, L100.0100 ####[facility] [address] [place], [address] Creatinine [Mass/Vol] 1.84 mg/dL High 0.70-1.20 [facility] Comment on above: Performed By: #### L 500.2500, L100.0100 ####[facility] [address] [place], [address] ECRCL 31.80 ml/min Low 50-250 [facility] Comment on above: Performed By: #### L 500.2500, L100.0100 ####[facility] [address] [place], [address] GAP 14 Normal 5-15 [facility] Comment on above: Performed By: #### L 500.2500, L100.0100 ####[facility] [address] [place], [address] GFR/1.73 sq M.predicted among non-blacks MDRD (S/P/Bld) [Vol rate/Area] 28 mL/min/{1.73_m2} Low >60 [facility] Comment on above: Result Comment: mL/m in/1.73m2 CKD-EPI Creatinine Equation (2020) Performed By: #### L 500.2500, L100.0100 ####[facility] [address] [place], [address] Glucose [Mass/Vol] 118 mg/dL High 70-[address] [facility] Comment on above: Performed By: #### L 500.2500, L100.0100 ####[facility] [address] [place], [address] Potassium [Moles/Vol] 3.7 mmol/L Normal 3.3-5.1 [facility] Comment on above: Performed By: #### L 500.2500, L100.0100 ####[facility] [address] [place], [address] Sodium [Moles/Vol] 134 mmol/L Normal 133-[address] [facility] Comment on above: Performed By: #### L 500.2500, L100.0100 ####[facility] [address] [place], [address] Urea nitrogen [Mass/Vol] 60 mg/dL High 4-19 [facility] Comment on above: Performed By: #### L 500.2500, L100.0100 ####[facility] [address] [place], [address] Bedside Glucoseon 02-22-2025 FINGERSTICK GLU 62 mg/dL Low 74-106 [facility] Comment on above: Result Comment: VI GEMENT OF PATIENT CARE PER NURSING PROTOCOL Performed By: #### L 501.080 ####[facility] [address] [place], [address] FINGERSTICK GLU 56 mg/dL Low 74-106 [facility] Comment on above: Result Comment: VI GEMENT OF PATIENT CARE PER NURSING PROTOCOL Performed By: #### L 501.080 ####[facility] [address] [place], [address] FINGERSTICK GLU 154 mg/dL High 74-106 [facility] Comment on above: Result Comment: VI GEMENT OF PATIENT CARE PER NURSING PROTOCOL Performed By: #### L 501.080 ####[facility] [address] [place], [address] FINGERSTICK GLU 104 mg/dL Normal 74-106 [facility] Comment on above: Result Comment: VI GEMENT OF PATIENT CARE PER NURSING PROTOCOL Performed By: #### L 501.080 ####[facility] [address] [place], [address] FINGERSTICK GLU 112 mg/dL High 74-106 [facility] Comment on above: Result Comment: VI GEMENT OF PATIENT CARE PER NURSING PROTOCOL Performed By: #### L 501.080 ####[facility] [address] [place], [address] CBC W/Diff, Automatedon 05-2 Absolute Lymph 0.86 X10 3/uL Normal 0.83-4.51 [facility] Comment on above: Performed By: #### L 500.2500, L100.0100 ####[facility] [address] [place], [address] Absolute Neut 7.2 X10 3/uL Normal 2.0-7.7 [facility] Comment on above: Performed By: #### L 500.2500, L100.0100 ####[facility] [address] [place], [address] Basophils/100 WBC (Bld) 0.6 % Normal 0-1 [facility] Comment on above: Performed By: #### L 500.2500, L100.0100 ####[facility] [address] [place], [address] Eosinophils/100 WBC (Bld) 2.0 % Normal 0-5 [facility] Comment on above: Performed By: #### L 500.2500, L100.0100 ####[facility] [address] [place], [address] Erythrocyte distribution width (RBC) [Ratio] 19.8 % High 11.6-14.6 [facility] Comment on above: Performed By: #### L 500.2500, L100.0100 ####[facility] [address] [place], [address] Hematocrit (Bld) [Volume fraction] 29.3 % Low 37-47 [facility] Comment on above: Performed By: #### L 500.2500, L100.0100 ####[facility] [address] [place], [address] Hemoglobin (Bld) [Mass/Vol] 8.7 g/dL Low 12.0-15.0 [facility] Comment on above: Performed By: #### L 500.2500, L100.0100 ####[facility] [address] [place], [address] IG% 0.700 Normal 0.0-0.9 [facility] Comment on above: Result Comment: IG% - Immature Granulocytes (promyelocytes, myelocytes andmetamyelocytes) > 1% indicates that a LEFT SHIFT is Present. Performed By: #### L 500.2500, L100.0100 ####[facility] [address] [place], [address] Lymphocytes/100 WBC (Bld) 9.7 % Low 19-41 [facility] Comment on above: Performed By: #### L 500.2500, L100.0100 ####[facility] [address] [place], [address] MCH (RBC) [Entitic mass] 22.0 pg Low 27.0-32.0 [facility] Comment on above: Performed By: #### L 500.2500, L100.0100 ####[facility] [address] [place], [address] MCHC (RBC) [Mass/Vol] 29.7 g/dL Low 32-36 [facility] Comment on above: Performed By: #### L 500.2500, L100.0100 ####[facility] [address] [place], [address] MCV (RBC) [Entitic vol] 74.2 fL Low 81-99 [facility] Comment on above: Performed By: #### L 500.2500, L100.0100 ####[facility] [address] [place], [address] Monocytes/100 WBC (Bld) 6.4 % Normal 0-10 [facility] Comment on above: Performed By: #### L 500.2500, L100.0100 ####[facility] [address] [place], [address] Neutrophils/100 WBC (Bld) 80.6 % High 47-70 [facility] Comment on above: Performed By: #### L 500.2500, L100.0100 ####[facility] [address] [place], [address] Nucleated RBC (Bld) [#/Vol] 0 10*3/uL Normal 0-5 [facility] Comment on above: Performed By: #### L 500.2500, L100.0100 ####[facility] [address] [place], [address] Platelet mean volume (Bld) [Entitic vol] 10.8 fL Normal 6.2-12.0 [facility] Comment on above: Performed By: #### L 500.2500, L100.0100 ####[facility] [address] [place], [address] Platelets (Bld) [#/Vol] 401 10*3/uL Normal 150-450 [facility] Comment on above: Performed By: #### L 500.2500, L100.0100 ####[facility] [address] [place], [address] RBC (Bld) [#/Vol] 3.95 10*6/uL Low 4.2-5.[address] [facility] Comment on above: Performed By: #### L 500.2500, L100.0100 ####[facility] [address] [place], [address] RDW SD 52.0 fl High 35.1-43.9 [facility] Comment on above: Performed By: #### L 500.2500, L100.0100 ####[facility] [address] [place], [address] WBC (Bld) [#/Vol] 8.9 10*3/uL Normal 4.4-11.[address] [facility] Comment on above: Performed By: #### L 500.2500, L100.0100 ####[facility] [address] [place], [address] Basic Metabolic Profile (BMP )on 02-21-2025 BUN/CRE 31.0 RATIO High 10-20 [facility] Comment on above: Performed By: #### L 100.0100, L500.2500 ####[facility] [address] [place], [address] Calcium [Mass/Vol] 9.4 mg/dL Normal 7.6-11.[address] [facility] Comment on above: Performed By: #### L 100.0100, L500.2500 ####[facility] [address] [place], [address] Chloride [Moles/Vol] 97 mmol/L Low 98-108 [facility] Comment on above: Performed By: #### L 100.0100, L500.2500 ####[facility] [address] [place], [address] CO2 [Moles/Vol] 21.7 mmol/L Normal 21.0-32.0 [facility] Comment on above: Performed By: #### L 100.0100, L500.2500 ####[facility] [address] [place], [address] Creatinine [Mass/Vol] 1.75 mg/dL High 0.70-1.20 [facility] Comment on above: Performed By: #### L 100.0100, L500.2500 ####[facility] [address] [place], [address] ECRCL 33.37 ml/min Low 50-250 [facility] Comment on above: Performed By: #### L 100.0100, L500.2500 ####[facility] [address] [place], [address] GAP 13 Normal 5-15 [facility] Comment on above: Performed By: #### L 100.0100, L500.2500 ####[facility] [address] [place], [address] GFR/1.73 sq M.predicted among non-blacks MDRD (S/P/Bld) [Vol rate/Area] 30 mL/min/{1.73_m2} Low >60 [facility] Comment on above: Result Comment: mL/m in/1.73m2 CKD-EPI Creatinine Equation (2020) Performed By: #### L 100.0100, L500.2500 ####[facility] [address] [place], [address] Glucose [Mass/Vol] 120 mg/dL High 70-[address] [facility] Comment on above: Performed By: #### L 100.0100, L500.2500 ####[facility] [address] [place], [address] Potassium [Moles/Vol] 3.7 mmol/L Normal 3.3-5.1 [facility] Comment on above: Performed By: #### L 100.0100, L500.2500 ####[facility] [address] [place], [address] Sodium [Moles/Vol] 132 mmol/L Low 133-[address] [facility] Comment on above: Performed By: #### L 100.0100, L500.2500 ####[facility] [address] [place], [address] Urea nitrogen [Mass/Vol] 54 mg/dL High 4-19 [facility] Comment on above: Performed By: #### L 100.0100, L500.2500 ####[facility] [address] [place], [address] Bedside Glucoseon 02-21-2025 FINGERSTICK GLU 114 mg/dL High 74-106 [facility] Comment on above: Result Comment: VI GEMENT OF PATIENT CARE PER NURSING PROTOCOL Performed By: #### L 501.080 ####[facility] [address] [place], [address] FINGERSTICK GLU 162 mg/dL High 74-106 [facility] Comment on above: Result Comment: VI GEMENT OF PATIENT CARE PER NURSING PROTOCOL Performed By: #### L 501.080 ####[facility] [address] [place], [address] FINGERSTICK GLU 51 mg/dL Low 74-106 [facility] Comment on above: Result Comment: VI GEMENT OF PATIENT CARE PER NURSING PROTOCOL Performed By: #### L 501.080 ####[facility] [address] [place], [address] FINGERSTICK GLU 89 mg/dL Normal 74-106 [facility] Comment on above: Result Comment: VI GEMENT OF PATIENT CARE PER NURSING PROTOCOL Performed By: #### L 501.080 ####[facility] [address] [place], [address] FINGERSTICK GLU 73 mg/dL Low 74-106 [facility] Comment on above: Result Comment: VI GEMENT OF PATIENT CARE PER NURSING PROTOCOL Performed By: #### L 501.080 ####[facility] [address] [place], [address] FINGERSTICK GLU 41 mg/dL Invalid Interpretation Code 74-106 [facility] Comment on above: Result Comment: Dr Shawn padilla FollowedMANAGEMENT OF PATIENT CARE PER NURSING PROTOCOL Performed By: #### L 501.080 ####[facility] [address] [place], [address] FINGERSTICK GLU 87 mg/dL Normal 74-106 [facility] Comment on above: Result Comment: VI GEMENT OF PATIENT CARE PER NURSING PROTOCOL Performed By: #### L 501.080 ####[facility] [address] [place], [address] CBC W/Diff, Automatedon 05-2 -2024 Absolute Lymph 1.00 X10 3/uL Normal 0.83-4.51 [facility] Comment on above: Performed By: #### L 100.0100, L500.2500 ####[facility] [address] [place], [address] Absolute Neut 7.9 X10 3/uL High 2.0-7.7 [facility] Comment on above: Performed By: #### L 100.0100, L500.2500 ####[facility] [address] [place], [address] Basophils/100 WBC (Bld) 0.7 % Normal 0-1 [facility] Comment on above: Performed By: #### L 100.0100, L500.2500 ####[facility] [address] [place], [address] Eosinophils/100 WBC (Bld) 1.9 % Normal 0-5 [facility] Comment on above: Performed By: #### L 100.0100, L500.2500 ####[facility] [address] [place], [address] Erythrocyte distribution width (RBC) [Ratio] 19.6 % High 11.6-14.6 [facility] Comment on above: Performed By: #### L 100.0100, L500.2500 ####[facility] [address] [place], [address] Hematocrit (Bld) [Volume fraction] 28.2 % Low 37-47 [facility] Comment on above: Performed By: #### L 100.0100, L500.2500 ####[facility] [address] [place], [address] Hemoglobin (Bld) [Mass/Vol] 8.4 g/dL Low 12.0-15.0 [facility] Comment on above: Performed By: #### L 100.0100, L500.2500 ####[facility] [address] [place], [address] IG% 0.500 Normal 0.0-0.9 [facility] Comment on above: Result Comment: IG% - Immature Granulocytes (promyelocytes, myelocytes andmetamyelocytes) > 1% indicates that a LEFT SHIFT is Present. Performed By: #### L 100.0100, L500.2500 ####[facility] [address] [place], [address] Lymphocytes/100 WBC (Bld) 9.9 % Low 19-41 [facility] Comment on above: Performed By: #### L 100.0100, L500.2500 ####[facility] [address] [place], [address] MCH (RBC) [Entitic mass] 22.2 pg Low 27.0-32.0 [facility] Comment on above: Performed By: #### L 100.0100, L500.2500 ####[facility] [address] [place], [address] MCHC (RBC) [Mass/Vol] 29.8 g/dL Low 32-36 [facility] Comment on above: Performed By: #### L 100.0100, L500.2500 ####[facility] [address] [place], [address] MCV (RBC) [Entitic vol] 74.4 fL Low 81-99 [facility] Comment on above: Performed By: #### L 100.0100, L500.2500 ####[facility] [address] [place], [address] Monocytes/100 WBC (Bld) 8.3 % Normal 0-10 [facility] Comment on above: Performed By: #### L 100.0100, L500.2500 ####[facility] [address] [place], [address] Neutrophils/100 WBC (Bld) 78.7 % High 47-70 [facility] Comment on above: Performed By: #### L 100.0100, L500.2500 ####[facility] [address] [place], [address] Nucleated RBC (Bld) [#/Vol] 0 10*3/uL Normal 0-5 [facility] Comment on above: Performed By: #### L 100.0100, L500.2500 ####[facility] [address] [place], [address] Platelet mean volume (Bld) [Entitic vol] 10.1 fL Normal 6.2-12.0 [facility] Comment on above: Performed By: #### L 100.0100, L500.2500 ####[facility] [address] [place], [address] Platelets (Bld) [#/Vol] 392 10*3/uL Normal 150-450 [facility] Comment on above: Performed By: #### L 100.0100, L500.2500 ####[facility] [address] [place], [address] RBC (Bld) [#/Vol] 3.79 10*6/uL Low 4.2-5.[address] [facility] Comment on above: Performed By: #### L 100.0100, L500.2500 ####[facility] [address] [place], [address] RDW SD 51.9 fl High 35.1-43.9 [facility] Comment on above: Performed By: #### L 100.0100, L500.2500 ####[facility] [address] [place], [address] WBC (Bld) [#/Vol] 10.1 10*3/uL Normal 4.4-11.[address] [facility] Comment on above: Performed By: #### L 100.0100, L500.2500 ####[facility] [address] [place], [address] EGD Reporton 02-21-2025 EGD Report Normal [facility] Basic Metabolic Profile (BMP )on 02-20-2025 BUN/CRE 35.1 RATIO High 10-20 [facility] Comment on above: Performed By: #### L 100.0100, L500.2500 ####[facility] [address] [place], [address] Calcium [Mass/Vol] 9.0 mg/dL Normal 7.6-11.[address] [facility] Comment on above: Performed By: #### L 100.0100, L500.2500 ####[facility] [address] [place], [address] Chloride [Moles/Vol] 96 mmol/L Low 98-108 [facility] Comment on above: Performed By: #### L 100.0100, L500.2500 ####[facility] [address] [place], [address] CO2 [Moles/Vol] 19.6 mmol/L Low 21.0-32.0 [facility] Comment on above: Performed By: #### L 100.0100, L500.2500 ####[facility] [address] [place], [address] Creatinine [Mass/Vol] 2.47 mg/dL High 0.70-1.20 [facility] Comment on above: Performed By: #### L 100.0100, L500.2500 ####[facility] [address] [place], [address] ECRCL 23.85 ml/min Low 50-250 [facility] Comment on above: Performed By: #### L 100.0100, L500.2500 ####[facility] [address] [place], [address] GAP 14 Normal 5-15 [facility] Comment on above: Performed By: #### L 100.0100, L500.2500 ####[facility] [address] [place], [address] GFR/1.73 sq M.predicted among non-blacks MDRD (S/P/Bld) [Vol rate/Area] 20 mL/min/{1.73_m2} Low >60 [facility] Comment on above: Result Comment: mL/m in/1.73m2 CKD-EPI Creatinine Equation (2020) Performed By: #### L 100.0100, L500.2500 ####[facility] [address] [place], [address] Glucose [Mass/Vol] 143 mg/dL High 70-[address] [facility] Comment on above: Performed By: #### L 100.0100, L500.2500 ####[facility] [address] [place], [address] Potassium [Moles/Vol] 3.8 mmol/L Normal 3.3-5.1 [facility] Comment on above: Performed By: #### L 100.0100, L500.2500 ####[facility] [address] [place], [address] Sodium [Moles/Vol] 129 mmol/L Low 133-[address] [facility] Comment on above: Performed By: #### L 100.0100, L500.2500 ####[facility] [address] [place], [address] Urea nitrogen [Mass/Vol] 87 mg/dL High 4-19 [facility] Comment on above: Performed By: #### L 100.0100, L500.2500 ####[facility] [address] [place], [address] Bedside Glucoseon 02-20-2025 FINGERSTICK GLU 129 mg/dL High 74-106 [facility] Comment on above: Result Comment: VI GEMENT OF PATIENT CARE PER NURSING PROTOCOL Performed By: #### L 501.080 ####[facility] [address] [place], [address] FINGERSTICK GLU 138 mg/dL High 74-106 [facility] Comment on above: Result Comment: VI GEMENT OF PATIENT CARE PER NURSING PROTOCOL Performed By: #### L 501.080 ####[facility] [address] [place], [address] FINGERSTICK GLU 140 mg/dL High 74-106 [facility] Comment on above: Result Comment: Dr Shawn padilla FollowedMANAGEMENT OF PATIENT CARE PER NURSING PROTOCOL Performed By: #### L 501.080 ####[facility] [address] [place], [address] FINGERSTICK GLU 111 mg/dL High 74-106 [facility] Comment on above: Result Comment: VI GEMENT OF PATIENT CARE PER NURSING PROTOCOL Performed By: #### L 501.080 ####[facility] [address] [place], [address] FINGERSTICK GLU 142 mg/dL High 74-106 [facility] Comment on above: Result Comment: VI GEMENT OF PATIENT CARE PER NURSING PROTOCOL Performed By: #### L 501.080 ####[facility] [address] [place], [address] FINGERSTICK GLU 208 mg/dL High 74-106 [facility] Comment on above: Result Comment: VI GEMENT OF PATIENT CARE PER NURSING PROTOCOL Performed By: #### L 501.080 ####[facility] [address] [place], [address] CBC W/Diff, Automatedon 05-2 -2024 Absolute Lymph 1.04 X10 3/uL Normal 0.83-4.51 [facility] Comment on above: Performed By: #### L 100.0100, L500.2500 ####[facility] [address] [place], [address] Absolute Neut 9.6 X10 3/uL High 2.0-7.7 [facility] Comment on above: Performed By: #### L 100.0100, L500.2500 ####[facility] [address] [place], [address] Basophils/100 WBC (Bld) 0.8 % Normal 0-1 [facility] Comment on above: Performed By: #### L 100.0100, L500.2500 ####[facility] [address] [place], [address] Eosinophils/100 WBC (Bld) 2.0 % Normal 0-5 [facility] Comment on above: Performed By: #### L 100.0100, L500.2500 ####[facility] [address] [place], [address] Erythrocyte distribution width (RBC) [Ratio] 19.6 % High 11.6-14.6 [facility] Comment on above: Performed By: #### L 100.0100, L500.2500 ####[facility] [address] [place], [address] Hematocrit (Bld) [Volume fraction] 28.1 % Low 37-47 [facility] Comment on above: Performed By: #### L 100.0100, L500.2500 ####[facility] [address] [place], [address] Hemoglobin (Bld) [Mass/Vol] 8.3 g/dL Low 12.0-15.0 [facility] Comment on above: Performed By: #### L 100.0100, L500.2500 ####[facility] [address] [place], [address] IG% 0.500 Normal 0.0-0.9 [facility] Comment on above: Result Comment: IG% - Immature Granulocytes (promyelocytes, myelocytes andmetamyelocytes) > 1% indicates that a LEFT SHIFT is Present. Performed By: #### L 100.0100, L500.2500 ####[facility] [address] [place], [address] Lymphocytes/100 WBC (Bld) 8.8 % Low 19-41 [facility] Comment on above: Performed By: #### L 100.0100, L500.2500 ####[facility] [address] [place], [address] MCH (RBC) [Entitic mass] 21.7 pg Low 27.0-32.0 [facility] Comment on above: Performed By: #### L 100.0100, L500.2500 ####[facility] [address] [place], [address] MCHC (RBC) [Mass/Vol] 29.5 g/dL Low 32-36 [facility] Comment on above: Performed By: #### L 100.0100, L500.2500 ####[facility] [address] [place], [address] MCV (RBC) [Entitic vol] 73.4 fL Low 81-99 [facility] Comment on above: Performed By: #### L 100.0100, L500.2500 ####[facility] [address] [place], [address] Monocytes/100 WBC (Bld) 6.6 % Normal 0-10 [facility] Comment on above: Performed By: #### L 100.0100, L500.2500 ####[facility] [address] [place], [address] Neutrophils/100 WBC (Bld) 81.3 % High 47-70 [facility] Comment on above: Performed By: #### L 100.0100, L500.2500 ####[facility] [address] [place], [address] Nucleated RBC (Bld) [#/Vol] 0 10*3/uL Normal 0-5 [facility] Comment on above: Performed By: #### L 100.0100, L500.2500 ####[facility] [address] [place], [address] Platelet mean volume (Bld) [Entitic vol] 10.7 fL Normal 6.2-12.0 [facility] Comment on above: Performed By: #### L 100.0100, L500.2500 ####[facility] [address] [place], [address] Platelets (Bld) [#/Vol] 373 10*3/uL Normal 150-450 [facility] Comment on above: Performed By: #### L 100.0100, L500.2500 ####[facility] [address] [place], [address] RBC (Bld) [#/Vol] 3.83 10*6/uL Low 4.2-5.[address] [facility] Comment on above: Performed By: #### L 100.0100, L500.2500 ####[facility] [address] [place], [address] RDW SD 50.8 fl High 35.1-43.9 [facility] Comment on above: Performed By: #### L 100.0100, L500.2500 ####[facility] [address] [place], [address] WBC (Bld) [#/Vol] 11.8 10*3/uL High 4.4-11.[address] [facility] Comment on above: Performed By: #### L 100.0100, L500.2500 ####[facility] [address] [place], [address] Basic Metabolic Profile (BMP )on 02-19-2025 BUN/CRE 31.5 RATIO High 10-20 [facility] Comment on above: Performed By: #### L 100.0100, L500.2500 ####[facility] [address] [place], [address] Calcium [Mass/Vol] 9.0 mg/dL Normal 7.6-11.[address] [facility] Comment on above: Performed By: #### L 100.0100, L500.2500 ####[facility] [address] [place], [address] Chloride [Moles/Vol] 96 mmol/L Low 98-108 [facility] Comment on above: Performed By: #### L 100.0100, L500.2500 ####[facility] [address] [place], [address] CO2 [Moles/Vol] 20.2 mmol/L Low 21.0-32.0 [facility] Comment on above: Performed By: #### L 100.0100, L500.2500 ####[facility] [address] [place], [address] Creatinine [Mass/Vol] 2.50 mg/dL High 0.70-1.20 [facility] Comment on above: Performed By: #### L 100.0100, L500.2500 ####[facility] [address] [place], [address] ECRCL 23.26 ml/min Low 50-250 [facility] Comment on above: Performed By: #### L 100.0100, L500.2500 ####[facility] [address] [place], [address] GAP 14 Normal 5-15 [facility] Comment on above: Performed By: #### L 100.0100, L500.2500 ####[facility] [address] [place], [address] GFR/1.73 sq M.predicted among non-blacks MDRD (S/P/Bld) [Vol rate/Area] 19 mL/min/{1.73_m2} Low >60 [facility] Comment on above: Result Comment: mL/m in/1.73m2 CKD-EPI Creatinine Equation (2020) Performed By: #### L 100.0100, L500.2500 ####[facility] [address] [place], [address] Glucose [Mass/Vol] 206 mg/dL High 70-[address] [facility] Comment on above: Performed By: #### L 100.0100, L500.2500 ####[facility] [address] [place], [address] Potassium [Moles/Vol] 3.9 mmol/L Normal 3.3-5.1 [facility] Comment on above: Performed By: #### L 100.0100, L500.2500 ####[facility] [address] [place], [address] Sodium [Moles/Vol] 130 mmol/L Low 133-[address] [facility] Comment on above: Performed By: #### L 100.0100, L500.2500 ####[facility] [address] [place], [address] Urea nitrogen [Mass/Vol] 79 mg/dL High 4-19 [facility] Comment on above: Performed By: #### L 100.0100, L500.2500 ####[facility] [address] [place], [address] Bedside Glucoseon 02-19-2025 FINGERSTICK GLU 151 mg/dL High 74-106 [facility] Comment on above: Result Comment: VI GEMENT OF PATIENT CARE PER NURSING PROTOCOL Performed By: #### L 501.080 ####[facility] [address] [place], [address] FINGERSTICK GLU 150 mg/dL High 74-106 [facility] Comment on above: Result Comment: VI GEMENT OF PATIENT CARE PER NURSING PROTOCOL Performed By: #### L 501.080 ####[facility] [address] [place], [address] FINGERSTICK GLU 157 mg/dL High 74-106 [facility] Comment on above: Result Comment: Dr Shawn padilla FollowedInsulin GivenMANAGEMENT OF PATIENT CARE PER NURSING PROTOCOL Performed By: #### L 501.080 ####[facility] [address] [place], [address] FINGERSTICK GLU 214 mg/dL High 74-106 [facility] Comment on above: Result Comment: VI GEMENT OF PATIENT CARE PER NURSING PROTOCOL Performed By: #### L 501.080 ####[facility] [address] [place], [address] CBC W/Diff, Automatedon 05- Absolute Lymph 1.01 X10 3/uL Normal 0.83-4.51 [facility] Comment on above: Performed By: #### L 100.0100, L500.2500 ####[facility] [address] [place], [address] Absolute Neut 11.5 X10 3/uL High 2.0-7.7 [facility] Comment on above: Performed By: #### L 100.0100, L500.2500 ####[facility] [address] [place], [address] Basophils/100 WBC (Bld) 0.7 % Normal 0-1 [facility] Comment on above: Performed By: #### L 100.0100, L500.2500 ####[facility] [address] [place], [address] Eosinophils/100 WBC (Bld) 1.9 % Normal 0-5 [facility] Comment on above: Performed By: #### L 100.0100, L500.2500 ####[facility] [address] [place], [address] Erythrocyte distribution width (RBC) [Ratio] 19.7 % High 11.6-14.6 [facility] Comment on above: Performed By: #### L 100.0100, L500.2500 ####[facility] [address] [place], [address] Hematocrit (Bld) [Volume fraction] 26.6 % Low 37-47 [facility] Comment on above: Performed By: #### L 100.0100, L500.2500 ####[facility] [address] [place], [address] Hemoglobin (Bld) [Mass/Vol] 7.8 g/dL Low 12.0-15.0 [facility] Comment on above: Performed By: #### L 100.0100, L500.2500 ####[facility] [address] [place], [address] IG% 0.600 Normal 0.0-0.9 [facility] Comment on above: Result Comment: IG% - Immature Granulocytes (promyelocytes, myelocytes andmetamyelocytes) > 1% indicates that a LEFT SHIFT is Present. Performed By: #### L 100.0100, L500.2500 ####[facility] [address] [place], [address] Lymphocytes/100 WBC (Bld) 7.3 % Low 19-41 [facility] Comment on above: Performed By: #### L 100.0100, L500.2500 ####[facility] [address] [place], [address] MCH (RBC) [Entitic mass] 21.9 pg Low 27.0-32.0 [facility] Comment on above: Performed By: #### L 100.0100, L500.2500 ####[facility] [address] [place], [address] MCHC (RBC) [Mass/Vol] 29.3 g/dL Low 32-36 [facility] Comment on above: Performed By: #### L 100.0100, L500.2500 ####[facility] [address] [place], [address] MCV (RBC) [Entitic vol] 74.7 fL Low 81-99 [facility] Comment on above: Performed By: #### L 100.0100, L500.2500 ####[facility] [address] [place], [address] Monocytes/100 WBC (Bld) 6.8 % Normal 0-10 [facility] Comment on above: Performed By: #### L 100.0100, L500.2500 ####[facility] [address] [place], [address] Neutrophils/100 WBC (Bld) 82.7 % High 47-70 [facility] Comment on above: Performed By: #### L 100.0100, L500.2500 ####[facility] [address] [place], [address] Nucleated RBC (Bld) [#/Vol] 0 10*3/uL Normal 0-5 [facility] Comment on above: Performed By: #### L 100.0100, L500.2500 ####[facility] [address] [place], [address] Platelet mean volume (Bld) [Entitic vol] 11.4 fL Normal 6.2-12.0 [facility] Comment on above: Performed By: #### L 100.0100, L500.2500 ####[facility] [address] [place], [address] Platelets (Bld) [#/Vol] 359 10*3/uL Normal 150-450 [facility] Comment on above: Performed By: #### L 100.0100, L500.2500 ####[facility] [address] [place], [address] RBC (Bld) [#/Vol] 3.56 10*6/uL Low 4.2-5.[address] [facility] Comment on above: Performed By: #### L 100.0100, L500.2500 ####[facility] [address] [place], [address] RDW SD 52.3 fl High 35.1-43.9 [facility] Comment on above: Performed By: #### L 100.0100, L500.2500 ####[facility] [address] [place], [address] WBC (Bld) [#/Vol] 13.9 10*3/uL High 4.4-11.[address] [facility] Comment on above: Performed By: #### L 100.0100, L500.2500 ####[facility] [address] [place], [address] Basic Metabolic Profile (BMP )on 02-18-2025 BUN/CRE 29.3 RATIO High 10-20 [facility] Comment on above: Performed By: #### L 100.0100, L500.2500 ####[facility] [address] [place], [place], [address] Calcium [Mass/Vol] 9.1 mg/dL Normal 7.6-11.[address] [facility] Comment on above: Performed By: #### L 100.0100, L500.2500 ####[facility] [address] [place], [address] Chloride [Moles/Vol] 98 mmol/L Normal 98-108 [facility] Comment on above: Performed By: #### L 100.0100, L500.2500 ####[facility] [address] [place], [address] CO2 [Moles/Vol] 21.2 mmol/L Normal 21.0-32.0 [facility] Comment on above: Performed By: #### L 100.0100, L500.2500 ####[facility] [address] [place], [address] Creatinine [Mass/Vol] 2.31 mg/dL High 0.70-1.20 [facility] Comment on above: Performed By: #### L 100.0100, L500.2500 ####[facility] [address] [place], [address] ECRCL 24.85 ml/min Low 50-250 [facility] Comment on above: Performed By: #### L 100.0100, L500.2500 ####[facility] [address] [place], [address] GAP 14 Normal 5-15 [facility] Comment on above: Performed By: #### L 100.0100, L500.2500 ####[facility] [address] [place], [address] GFR/1.73 sq M.predicted among non-blacks MDRD (S/P/Bld) [Vol rate/Area] 21 mL/min/{1.73_m2} Low >60 [facility] Comment on above: Result Comment: mL/m in/1.73m2 CKD-EPI Creatinine Equation (2020) Performed By: #### L 100.0100, L500.2500 ####[facility] [address] [place], [address] Glucose [Mass/Vol] 218 mg/dL High 70-[address] [facility] Comment on above: Performed By: #### L 100.0100, L500.2500 ####[facility] [address] [place], [address] Potassium [Moles/Vol] 3.9 mmol/L Normal 3.3-5.1 [facility] Comment on above: Performed By: #### L 100.0100, L500.2500 ####[facility] [address] [place], [address] Sodium [Moles/Vol] 133 mmol/L Normal 133-[address] [facility] Comment on above: Performed By: #### L 100.0100, L500.2500 ####[facility] [address] [place], [address] Urea nitrogen [Mass/Vol] 68 mg/dL High 4-19 [facility] Comment on above: Performed By: #### L 100.0100, L500.2500 ####[facility] [address] [place], [address] Bedside Glucoseon 02-18-2025 FINGERSTICK GLU 178 mg/dL High 74-106 [facility] Comment on above: Result Comment: Dr Shawn padilla FollowedMANAGEMENT OF PATIENT CARE PER NURSING PROTOCOL Performed By: #### L 501.080 ####[facility] [address] [place], [address] FINGERSTICK GLU 181 mg/dL High 74-106 [facility] Comment on above: Result Comment: Dr Shawn padilla FollowedMANAGEMENT OF PATIENT CARE PER NURSING PROTOCOL Performed By: #### L 501.080 ####[facility] [address] [place], [address] FINGERSTICK GLU 197 mg/dL High 74-106 [facility] Comment on above: Result Comment: VI GEMENT OF PATIENT CARE PER NURSING PROTOCOL Performed By: #### L 501.080 ####[facility] [address] [place], [address] FINGERSTICK GLU 200 mg/dL High 74-106 [facility] Comment on above: Result Comment: VI GEMENT OF PATIENT CARE PER NURSING PROTOCOL Performed By: #### L 501.080 ####[facility] [address] [place], [address] CBC W/Diff, Automatedon 2 Anisocytosis Ql (Bld) 2+ Normal [facility] Comment on above: Performed By: #### L 100.0100, L500.2500 ####[facility] [address] [place], [address] OVALOCYTE 2+ Normal [facility] Comment on above: Performed By: #### L 100.0100, L500.2500 ####[facility] [address] [place], [address] PLT EST ADEQUATE Normal ADEQ [facility] Comment on above: Performed By: #### L 100.0100, L500.2500 ####[facility] [address] [place], [address] SMEAR COMMENT SCANNED Normal [facility] Comment on above: Performed By: #### L 100.0100, L500.2500 ####[facility] [address] [place], [address] Basic Metabolic Profile (BMP )on 02-17-2025 BUN/CRE 34.0 RATIO High 10-20 [facility] Comment on above: Performed By: #### L 100.0100, L500.2500 ####[facility] [address] [place], [address] Calcium [Mass/Vol] 9.5 mg/dL Normal 7.6-11.[address] [facility] Comment on above: Performed By: #### L 100.0100, L500.2500 ####[facility] [address] [place], [address] Chloride [Moles/Vol] 97 mmol/L Low 98-108 [facility] Comment on above: Performed By: #### L 100.0100, L500.2500 ####[facility] [address] [place], [address] CO2 [Moles/Vol] 22.8 mmol/L Normal 21.0-32.0 [facility] Comment on above: Performed By: #### L 100.0100, L500.2500 ####[facility] [address] [place], [address] Creatinine [Mass/Vol] 2.35 mg/dL High 0.70-1.20 [facility] Comment on above: Performed By: #### L 100.0100, L500.2500 ####[facility] [address] [place], [address] ECRCL 24.22 ml/min Low 50-250 [facility] Comment on above: Performed By: #### L 100.0100, L500.2500 ####[facility] [address] [place], [address] GAP 15 Normal 5-15 [facility] Comment on above: Performed By: #### L 100.0100, L500.2500 ####[facility] [address] [place], [address] GFR/1.73 sq M.predicted among non-blacks MDRD (S/P/Bld) [Vol rate/Area] 21 mL/min/{1.73_m2} Low >60 [facility] Comment on above: Result Comment: mL/m in/1.73m2 CKD-EPI Creatinine Equation (2020) Performed By: #### L 100.0100, L500.2500 ####[facility] [address] [place], [address] Glucose [Mass/Vol] 256 mg/dL High 70-[address] [facility] Comment on above: Performed By: #### L 100.0100, L500.2500 ####[facility] [address] [place], [address] Potassium [Moles/Vol] 3.9 mmol/L Normal 3.3-5.1 [facility] Comment on above: Performed By: #### L 100.0100, L500.2500 ####[facility] [address] [place], [address] Sodium [Moles/Vol] 135 mmol/L Normal 133-[address] [facility] Comment on above: Performed By: #### L 100.0100, L500.2500 ####[facility] [address] [place], [address] Urea nitrogen [Mass/Vol] 80 mg/dL High 4-19 [facility] Comment on above: Performed By: #### L 100.0100, L500.2500 ####[facility] [address] [place], [address] Bedside Glucoseon 02-17-2025 FINGERSTICK GLU 169 mg/dL High 74-106 [facility] Comment on above: Result Comment: VI GEMENT OF PATIENT CARE PER NURSING PROTOCOL Performed By: #### L 501.080 ####[facility] [address] [place], [address] FINGERSTICK GLU 150 mg/dL High [address] [place] [address] Comment on above: Result Comment: VI GEMENT OF PATIENT CARE PER NURSING PROTOCOL Performed By: #### L 501.080 ####[facility] [address] [place], [address] FINGERSTICK GLU 221 mg/dL High [address] [facility] Comment on above: Result Comment: VI GEMENT OF PATIENT CARE PER NURSING PROTOCOL Performed By: #### L 501.080 ####[facility] [address] [place], [address] FINGERSTICK GLU 240 mg/dL High [address] [place] [address] Comment on above: Result Comment: VI GEMENT OF PATIENT CARE PER NURSING PROTOCOL Performed By: #### L 501.080 ####[facility] [address] [place], [address] Blood Gases by [facility] 025 DANIEL TEST Positive Normal [facility] Comment on above: Performed By: #### L 9000.0800 ####[facility] [address] [place], [address] Base excess Calc (Bld) [Moles/Vol] 4 mmol/L High -2 to +2 [facility] Comment on above: Performed By: #### L 9000.0800 ####[facility] [address] [place], [address] Blood Gas Type ART Normal [facility] Comment on above: Performed By: #### L 9000.0800 ####[facility] [address] [place], [address] CO2 [Moles/Vol] 29 mmol/L Normal [facility] Comment on above: Performed By: #### L 9000.0800 ####[facility] [address] [place], [address] FI02 24.0 Normal [facility] Comment on above: Performed By: #### L 9000.0800 ####[facility] [address] [place], [address] HCO3 (Bld) [Moles/Vol] 27.6 mmol/L High 22-26 [facility] Comment on above: Performed By: #### L 9000.0800 ####[facility] [address] [place], [address] Mode PS Normal [facility] Comment on above: Performed By: #### L 9000.0800 ####[facility] [address] [place], [address] O2 Delivery Dev Adult Vent Normal [facility] Comment on above: Performed By: #### L 9000.0800 ####[facility] [address] [place], [address] pCO2 36.5 mmHg Normal 35-45 [facility] Comment on above: Performed By: #### L 9000.0800 ####[facility] [address] [place], [address] PEEP 5 Normal [facility] Comment on above: Performed By: #### L 9000.0800 ####[facility] [address] [place], [address] pH (Bld) 7.49 [pH] High 7.35-7.45 [facility] Comment on above: Performed By: #### L 9000.0800 ####[facility] [address] [place], [address] PO2 65 mmHG Low 75-100 [facility] Comment on above: Performed By: #### L 9000.0800 ####[facility] [address] [place], [address] SITE R Radial Normal [facility] Comment on above: Performed By: #### L 9000.0800 ####[facility] [address] [place], [address] SO2 94 Low 95-99 [facility] Comment on above: Performed By: #### L 9000.0800 ####[facility] [address] [place], [address] CBC W/Diff, Automatedon 05-2 -2024 Absolute Lymph 1.14 X10 3/uL Normal 0.83-4.51 [facility] Comment on above: Performed By: #### L 100.0100, L500.2500 ####[facility] [address] [place], [address] Absolute Neut 13.0 X10 3/uL High 2.0-7.7 [facility] Comment on above: Performed By: #### L 100.0100, L500.2500 ####[facility] [address] [place], [address] Basophils/100 WBC (Bld) 0.5 % Normal 0-1 [facility] Comment on above: Performed By: #### L 100.0100, L500.2500 ####[facility] [address] [place], [address] Eosinophils/100 WBC (Bld) 1.3 % Normal 0-5 [facility] Comment on above: Performed By: #### L 100.0100, L500.2500 ####[facility] [address] [place], [address] Erythrocyte distribution width (RBC) [Ratio] 19.9 % High 11.6-14.6 [facility] Comment on above: Performed By: #### L 100.0100, L500.2500 ####[facility] [address] [place], [address] Hematocrit (Bld) [Volume fraction] 30.7 % Low 37-47 [facility] Comment on above: Performed By: #### L 100.0100, L500.2500 ####[facility] [address] [place], [address] Hemoglobin (Bld) [Mass/Vol] 9.0 g/dL Low 12.0-15.0 [facility] Comment on above: Performed By: #### L 100.0100, L500.2500 ####[facility] [address] [place], [address] IG% 0.600 Normal 0.0-0.9 [facility] Comment on above: Result Comment: IG% - Immature Granulocytes (promyelocytes, myelocytes andmetamyelocytes) > 1% indicates that a LEFT SHIFT is Present. Performed By: #### L 100.0100, L500.2500 ####[facility] [address] [place], [address] Lymphocytes/100 WBC (Bld) 7.2 % Low 19-41 [facility] Comment on above: Performed By: #### L 100.0100, L500.2500 ####[facility] [address] [place], [address] MCH (RBC) [Entitic mass] 22.0 pg Low 27.0-32.0 [facility] Comment on above: Performed By: #### L 100.0100, L500.2500 ####[facility] [address] [place], [address] MCHC (RBC) [Mass/Vol] 29.3 g/dL Low 32-36 [facility] Comment on above: Performed By: #### L 100.0100, L500.2500 ####[facility] [address] [place], [address] MCV (RBC) [Entitic vol] 74.9 fL Low 81-99 [facility] Comment on above: Performed By: #### L 100.0100, L500.2500 ####[facility] [address] [place], [address] Monocytes/100 WBC (Bld) 8.0 % Normal 0-10 [facility] Comment on above: Performed By: #### L 100.0100, L500.2500 ####[facility] [address] [place], [address] Neutrophils/100 WBC (Bld) 82.4 % High 47-70 [facility] Comment on above: Performed By: #### L 100.0100, L500.2500 ####[facility] [address] [place], [address] Nucleated RBC (Bld) [#/Vol] 0 10*3/uL Normal 0-5 [facility] Comment on above: Performed By: #### L 100.0100, L500.2500 ####[facility] [address] [place], [address] Platelet mean volume (Bld) [Entitic vol] 10.8 fL Normal 6.2-12.0 [facility] Comment on above: Performed By: #### L 100.0100, L500.2500 ####[facility] [address] [place], [address] Platelets (Bld) [#/Vol] 323 10*3/uL Normal 150-450 [facility] Comment on above: Performed By: #### L 100.0100, L500.2500 ####[facility] [address] [place], [address] RBC (Bld) [#/Vol] 4.10 10*6/uL Low 4.2-5.[address] [facility] Comment on above: Performed By: #### L 100.0100, L500.2500 ####[facility] [address] [place], [address] RDW SD 51.8 fl High 35.1-43.9 [facility] Comment on above: Performed By: #### L 100.0100, L500.2500 ####[facility] [address] [place], [address] WBC (Bld) [#/Vol] 15.8 10*3/uL High 4.4-11.[address] [facility] Comment on above: Performed By: #### L 100.0100, L500.2500 ####[facility] [address] [place], [address] Chest 1 View (Portable)on Chest 1 View (Portable) Normal [facility] Basic Metabolic Profile (BMP )on 02-16-2025 Urea nitrogen [Mass/Vol] 130 mg/dL Invalid Interpretation Code 01-13 [facility] Comment on above: Result Comment: Crit ical Result(s) Called at:02/16/2025-08:32 by: Salvatore to Rufina Mena??Results read back by same. Performed By: #### L 501.5200, L501.2300, L500.2500 ####[facility] [address] [place], [address] Bedside Glucoseon 02-16-2025 FINGERSTICK GLU 224 mg/dL High 74-106 [facility] Comment on above: Result Comment: VI GEMENT OF PATIENT CARE PER NURSING PROTOCOL Performed By: #### L 501.080 ####[facility] [address] [place], [address] FINGERSTICK GLU 200 mg/dL High 74-106 [facility] Comment on above: Result Comment: VI GEMENT OF PATIENT CARE PER NURSING PROTOCOL Performed By: #### L 501.080 ####[facility] [address] [place], [address] FINGERSTICK GLU 143 mg/dL High 74-106 [facility] Comment on above: Result Comment: VI GEMENT OF PATIENT CARE PER NURSING PROTOCOL Performed By: #### L 501.080 ####[facility] [address] [place], [address] FINGERSTICK GLU 103 mg/dL Normal 74-106 [facility] Comment on above: Result Comment: VI GEMENT OF PATIENT CARE PER NURSING PROTOCOL Performed By: #### L 501.080 ####[facility] [address] [place], [address] FINGERSTICK GLU 153 mg/dL High 74-106 [facility] Comment on above: Result Comment: VI GEMENT OF PATIENT CARE PER NURSING PROTOCOL Performed By: #### L 501.080 ####[facility] [address] [place], [address] FINGERSTICK GLU 192 mg/dL High 74-106 [facility] Comment on above: Result Comment: VI GEMENT OF PATIENT CARE PER NURSING PROTOCOL Performed By: #### L 501.080 ####[facility] [address] [place], [address] CBC W/Diff, Automatedon 05-2 3-2024 Absolute Lymph 1.18 X10 3/uL Normal 0.83-4.51 [facility] Comment on above: Performed By: #### L 100.0100 ####[facility] [address] [place], [address] Absolute Neut 11.2 X10 3/uL High 2.0-7.7 [facility] Comment on above: Performed By: #### L 100.0100 ####[facility] [address] [place], [address] Basophils/100 WBC (Bld) 0.6 % Normal 0-1 [facility] Comment on above: Performed By: #### L 100.0100 ####[facility] [address] [place], [address] Eosinophils/100 WBC (Bld) 1.7 % Normal 0-5 [facility] Comment on above: Performed By: #### L 100.0100 ####[facility] [address] [place], [address] Erythrocyte distribution width (RBC) [Ratio] 19.5 % High 11.6-14.6 [facility] Comment on above: Performed By: #### L 100.0100 ####[facility] [address] [place], [address] Hematocrit (Bld) [Volume fraction] 28.9 % Low 37-47 [facility] Comment on above: Performed By: #### L 100.0100 ####[facility] [address] [place], [address] Hemoglobin (Bld) [Mass/Vol] 8.7 g/dL Low 12.0-15.0 [facility] Comment on above: Performed By: #### L 100.0100 ####[facility] [address] [place], [address] IG% 0.600 Normal 0.0-0.9 [facility] Comment on above: Result Comment: IG% - Immature Granulocytes (promyelocytes, myelocytes andmetamyelocytes) > 1% indicates that a LEFT SHIFT is Present. Performed By: #### L 100.0100 ####[facility] [address] [place], [address] Lymphocytes/100 WBC (Bld) 8.5 % Low 19-41 [facility] Comment on above: Performed By: #### L 100.0100 ####[facility] [address] [place], [address] MCH (RBC) [Entitic mass] 22.2 pg Low 27.0-32.0 [facility] Comment on above: Performed By: #### L 100.0100 ####[facility] [address] [place], [address] MCHC (RBC) [Mass/Vol] 30.1 g/dL Low 32-36 [facility] Comment on above: Performed By: #### L 100.0100 ####[facility] [address] [place], [address] MCV (RBC) [Entitic vol] 73.7 fL Low 81-99 [facility] Comment on above: Performed By: #### L 100.0100 ####[facility] [address] [place], [address] Monocytes/100 WBC (Bld) 8.4 % Normal 0-10 [facility] Comment on above: Performed By: #### L 100.0100 ####[facility] [address] [place], [address] Neutrophils/100 WBC (Bld) 80.2 % High 47-70 [facility] Comment on above: Performed By: #### L 100.0100 ####[facility] [address] [place], [address] Nucleated RBC (Bld) [#/Vol] 0 10*3/uL Normal 0-5 [facility] Comment on above: Performed By: #### L 100.0100 ####[facility] [address] [place], [address] Platelet mean volume (Bld) [Entitic vol] 11.1 fL Normal 6.2-12.0 [facility] Comment on above: Performed By: #### L 100.0100 ####[facility] [address] [place], [address] Platelets (Bld) [#/Vol] 257 10*3/uL Normal 150-450 [facility] Comment on above: Performed By: #### L 100.0100 ####[facility] [address] [place], [address] RBC (Bld) [#/Vol] 3.92 10*6/uL Low 4.2-5.[address] [facility] Comment on above: Performed By: #### L 100.0100 ####[facility] [address] [place], [address] RDW SD 49.7 fl High 35.1-43.9 [facility] Comment on above: Performed By: #### L 100.0100 ####[facility] [address] [place], [address] WBC (Bld) [#/Vol] 13.9 10*3/uL High 4.4-11.[address] [facility] Comment on above: Performed By: #### L 100.0100 ####[facility] [address] [place], [address] CPK Total, Creatine Kinaseon 02-16-2025 CPK TOTAL 34 U/L Normal 24-195 [facility] Comment on above: Performed By: #### L 501.3620 ####[facility] [address] [place], [address] Magnesiumon 02-16-2025 Magnesium [Mass/Vol] 2.3 mg/dL High 1.5-2.2 [facility] Comment on above: Performed By: #### L 501.5200, L501.2300, L500.2500 ####[facility] [address] [place], [address] Phosphoruson 02-16-2025 Phosphate [Mass/Vol] 4.7 mg/dL High 2.7-4.5 [facility] Comment on above: Performed By: #### L 501.5200, L501.2300, L500.2500 ####[facility] [address] [place], [address] Basic Metabolic Profile (BMP )on 02-15-2025 BUN/CRE 53.6 RATIO High 10-20 [facility] Comment on above: Performed By: #### L 100.0100, L501.5200, L500.2500 ####[facility] [address] [place], [address] Calcium [Mass/Vol] 8.6 mg/dL Normal 7.6-11.[address] [facility] Comment on above: Performed By: #### L 100.0100, L501.5200, L500.2500 ####[facility] [address] [place], [address] Chloride [Moles/Vol] 96 mmol/L Low 98-108 [facility] Comment on above: Performed By: #### L 100.0100, L501.5200, L500.2500 ####[facility] [address] [place], [address] CO2 [Moles/Vol] 26.7 mmol/L Normal 21.0-32.0 [facility] Comment on above: Performed By: #### L 100.0100, L501.5200, L500.2500 ####[facility] [address] [place], [address] Creatinine [Mass/Vol] 2.22 mg/dL High 0.70-1.20 [facility] Comment on above: Performed By: #### L 100.0100, L501.5200, L500.2500 ####[facility] [address] [place], [address] ECRCL 26.18 ml/min Low 50-250 [facility] Comment on above: Performed By: #### L 100.0100, L501.5200, L500.2500 ####[facility] [address] [place], [address] GAP 17 High 5-15 [facility] Comment on above: Performed By: #### L 100.0100, L501.5200, L500.2500 ####[facility] [address] [place], [address] GFR/1.73 sq M.predicted among non-blacks MDRD (S/P/Bld) [Vol rate/Area] 22 mL/min/{1.73_m2} Low >60 [facility] Comment on above: Result Comment: mL/m in/1.73m2 CKD-EPI Creatinine Equation (2020) Performed By: #### L 100.0100, L501.5200, L500.2500 ####[facility] [address] [place], [address] Glucose [Mass/Vol] 237 mg/dL High 70-[address] [facility] Comment on above: Performed By: #### L 100.0100, L501.5200, L500.2500 ####[facility] [address] [place], [address] Potassium [Moles/Vol] 3.0 mmol/L Low 3.3-5.1 [facility] Comment on above: Performed By: #### L 100.0100, L501.5200, L500.2500 ####[facility] [address] [place], [address] Sodium [Moles/Vol] 139 mmol/L Normal 133-[address] [facility] Comment on above: Performed By: #### L 100.0100, L501.5200, L500.2500 ####[facility] [address] [place], [address] Urea nitrogen [Mass/Vol] 119 mg/dL Invalid Interpretation Code 4-19 [facility] Comment on above: Result Comment: Crit ical Result(s) Called at: 0515 by:??HERMELINDO HAVEN TO CHON Results read back by same. Performed By: #### L 100.0100, L501.5200, L500.2500 ####[facility] [address] [place], [address] Bedside Glucoseon 02-15-2025 FINGERSTICK GLU 220 mg/dL High 74-106 [facility] Comment on above: Result Comment: VI GEMENT OF PATIENT CARE PER NURSING PROTOCOL Performed By: #### L 501.080 ####[facility] [address] [place], [address] FINGERSTICK GLU 208 mg/dL High [facility]106 [facility] Comment on above: Result Comment: VI GEMENT OF PATIENT CARE PER NURSING PROTOCOL Performed By: #### L 501.080 ####[facility] [address] [place], [address] FINGERSTICK GLU 241 mg/dL High 74-106 [facility] Comment on above: Result Comment: VI GEMENT OF PATIENT CARE PER NURSING PROTOCOL Performed By: #### L 501.080 ####[facility] [address] [place], [address] FINGERSTICK GLU 201 mg/dL High -106 [facility] Comment on above: Result Comment: VI GEMENT OF PATIENT CARE PER NURSING PROTOCOL Performed By: #### L 501.080 ####[facility] [address] [place], [address] FINGERSTICK GLU 222 mg/dL High 74-106 [facility] Comment on above: Result Comment: VI GEMENT OF PATIENT CARE PER NURSING PROTOCOL Performed By: #### L 501.080 ####[facility] [address] [place], [address] FINGERSTICK GLU 232 mg/dL High 74-106 [facility] Comment on above: Result Comment: VI GEMENT OF PATIENT CARE PER NURSING PROTOCOL Performed By: #### L 501.080 ####[facility] [address] [place], [address] Blood Gases by [facility] 025 DANIEL TEST Positive Normal [facility] Comment on above: Performed By: #### L 9000.0800 ####[facility] [address] [place], [address] Base excess Calc (Bld) [Moles/Vol] 10 mmol/L High -2 to +2 [facility] Comment on above: Performed By: #### L 9000.0800 ####[facility] [address] [place], [address] Blood Gas Type ART Normal [facility] Comment on above: Performed By: #### L 9000.0800 ####[facility] [address] [place], [address] CO2 [Moles/Vol] 34 mmol/L Normal [facility] Comment on above: Performed By: #### L 9000.0800 ####[facility] [address] [place], [address] FI02 30.0 Normal [facility] Comment on above: Performed By: #### L 9000.0800 ####[facility] [address] [place], [address] HCO3 (Bld) [Moles/Vol] 32.7 mmol/L High 22-26 [facility] Comment on above: Performed By: #### L 9000.0800 ####[facility] [address] [place], [address] Mode AC Normal [facility] Comment on above: Performed By: #### L 9000.0800 ####[facility] [address] [place], [address] O2 Delivery Dev Adult Vent Normal [facility] Comment on above: Performed By: #### L 9000.0800 ####[facility] [address] [place], [address] pCO2 40.4 mmHg Normal 35-45 [facility] Comment on above: Performed By: #### L 9000.0800 ####[facility] [address] [place], [address] PEEP 5 Normal [facility] Comment on above: Performed By: #### L 9000.0800 ####[facility] [address] [place], [address] pH (Bld) 7.52 [pH] High 7.35-7.45 [facility] Comment on above: Performed By: #### L 9000.0800 ####[facility] [address] [place], [address] PO2 72 mmHG Low 75-100 [facility] Comment on above: Performed By: #### L 9000.0800 ####[facility] [address] [place], [address] RR 14 Normal [facility] Comment on above: Performed By: #### L 9000.0800 ####[facility] [address] [place], [address] SITE R Radial Normal [facility] Comment on above: Performed By: #### L 9000.0800 ####[facility] [address] [place], [address] SO2 96 Normal 95-99 [facility] Comment on above: Performed By: #### L 9000.0800 ####[facility] [address] [place], [address] Vt 450.0 mL Normal [facility] Comment on above: Performed By: #### L 9000.0800 ####[facility] [address] [place], [address] CBC W/Diff, Automatedon 05-2 -2024 Absolute Lymph 0.92 X10 3/uL Normal 0.83-4.51 [facility] Comment on above: Performed By: #### L 100.0100, L501.5200, L500.2500 ####[facility] [address] [place], [address] Absolute Neut 9.8 X10 3/uL High 2.0-7.7 [facility] Comment on above: Performed By: #### L 100.0100, L501.5200, L500.2500 ####[facility] [address] [place], [address] Basophils/100 WBC (Bld) 0.7 % Normal 0-1 [facility] Comment on above: Performed By: #### L 100.0100, L501.5200, L500.2500 ####[facility] [address] [place], [address] Eosinophils/100 WBC (Bld) 1.9 % Normal 0-5 [facility] Comment on above: Performed By: #### L 100.0100, L501.5200, L500.2500 ####[facility] [address] [place], [address] Erythrocyte distribution width (RBC) [Ratio] 19.1 % High 11.6-14.6 [facility] Comment on above: Performed By: #### L 100.0100, L501.5200, L500.2500 ####[facility] [address] [place], [address] Hematocrit (Bld) [Volume fraction] 28.9 % Low 37-47 [facility] Comment on above: Performed By: #### L 100.0100, L501.5200, L500.2500 ####[facility] [address] [place], [address] Hemoglobin (Bld) [Mass/Vol] 8.5 g/dL Low 12.0-15.0 [facility] Comment on above: Performed By: #### L 100.0100, L501.5200, L500.2500 ####[facility] [address] [place], [address] IG% 0.600 Normal 0.0-0.9 [facility] Comment on above: Result Comment: IG% - Immature Granulocytes (promyelocytes, myelocytes andmetamyelocytes) > 1% indicates that a LEFT SHIFT is Present. Performed By: #### L 100.0100, L501.5200, L500.2500 ####[facility] [address] [place], [address] Lymphocytes/100 WBC (Bld) 7.6 % Low 19-41 [facility] Comment on above: Performed By: #### L 100.0100, L501.5200, L500.2500 ####[facility] [address] [place], [address] MCH (RBC) [Entitic mass] 21.7 pg Low 27.0-32.0 [facility] Comment on above: Performed By: #### L 100.0100, L501.5200, L500.2500 ####[facility] [address] [place], [address] MCHC (RBC) [Mass/Vol] 29.4 g/dL Low 32-36 [facility] Comment on above: Performed By: #### L 100.0100, L501.5200, L500.2500 ####[facility] [address] [place], [address] MCV (RBC) [Entitic vol] 73.9 fL Low 81-99 [facility] Comment on above: Performed By: #### L 100.0100, L501.5200, L500.2500 ####[facility] [address] [place], [address] Monocytes/100 WBC (Bld) 8.4 % Normal 0-10 [facility] Comment on above: Performed By: #### L 100.0100, L501.5200, L500.2500 ####[facility] [address] [place], [address] Neutrophils/100 WBC (Bld) 80.8 % High 47-70 [facility] Comment on above: Performed By: #### L 100.0100, L501.5200, L500.2500 ####[facility] [address] [place], [address] Nucleated RBC (Bld) [#/Vol] 0 10*3/uL Normal 0-5 [facility] Comment on above: Performed By: #### L 100.0100, L501.5200, L500.2500 ####[facility] [address] [place], [address] Platelet mean volume (Bld) [Entitic vol] 10.9 fL Normal 6.2-12.0 [facility] Comment on above: Performed By: #### L 100.0100, L501.5200, L500.2500 ####[facility] [address] [place], [address] Platelets (Bld) [#/Vol] 282 10*3/uL Normal 150-450 [facility] Comment on above: Performed By: #### L 100.0100, L501.5200, L500.2500 ####[facility] [address] [place], [address] RBC (Bld) [#/Vol] 3.91 10*6/uL Low 4.2-5.[address] [facility] Comment on above: Performed By: #### L 100.0100, L501.5200, L500.2500 ####[facility] [address] [place], [address] RDW SD 47.8 fl High 35.1-43.9 [facility] Comment on above: Performed By: #### L 100.0100, L501.5200, L500.2500 ####[facility] [address] [place], [address] WBC (Bld) [#/Vol] 12.1 10*3/uL High 4.4-11.[address] [facility] Comment on above: Performed By: #### L 100.0100, L501.5200, L500.2500 ####[facility] [address] [place], [address] Chest 1 View (Portable)on Chest 1 View (Portable) Normal [facility] Magnesiumon 02-15-2025 Magnesium [Mass/Vol] 2.1 mg/dL Normal 1.5-2.2 [facility] Comment on above: Performed By: #### L 100.0100, L501.5200, L500.2500 ####[facility] [address] [place], [address] Phosphoruson 02-15-2025 Phosphate [Mass/Vol] 4.0 mg/dL Normal 2.7-4.5 [facility] Comment on above: Performed By: #### L 501.2300 ####[facility] [address] [place], [address] Basic Metabolic Profile (BMP )on 02-14-2025 BUN/CRE 52.2 RATIO High 10-20 [facility] Comment on above: Performed By: #### L 500.2500 ####[facility] [address] [place], [address] Calcium [Mass/Vol] 8.5 mg/dL Normal 7.6-11.[address] [facility] Comment on above: Performed By: #### L 500.2500 ####[facility] [address] [place], [address] Chloride [Moles/Vol] 93 mmol/L Low 98-108 [facility] Comment on above: Performed By: #### L 500.2500 ####[facility] [address] [place], [address] CO2 [Moles/Vol] 28.9 mmol/L Normal 21.0-32.0 [facility] Comment on above: Performed By: #### L 500.2500 ####[facility] [address] [place], [address] Creatinine [Mass/Vol] 2.49 mg/dL High 0.70-1.20 [facility] Comment on above: Performed By: #### L 500.2500 ####[facility] [address] [place], [address] ECRCL 23.53 ml/min Low 50-250 [facility] Comment on above: Performed By: #### L 500.2500 ####[facility] [address] [place], [address] GAP 17 High 5-15 [facility] Comment on above: Performed By: #### L 500.2500 ####[facility] [address] [place], [address] GFR/1.73 sq M.predicted among non-blacks MDRD (S/P/Bld) [Vol rate/Area] 20 mL/min/{1.73_m2} Low >60 [facility] Comment on above: Result Comment: mL/m in/1.73m2 CKD-EPI Creatinine Equation (2020) Performed By: #### L 500.2500 ####[facility] [address] [place], [address] Glucose [Mass/Vol] 255 mg/dL High 70-[address] [facility] Comment on above: Performed By: #### L 500.2500 ####[facility] [address] [place], [address] Potassium [Moles/Vol] 3.3 mmol/L Normal 3.3-5.1 [facility] Comment on above: Result Comment: Hemo lysis present, Results??could be affected.?? Performed By: #### L 500.2500 ####[facility] [address] [place], [address] Sodium [Moles/Vol] 140 mmol/L Normal 133-[address] [facility] Comment on above: Performed By: #### L 500.2500 ####[facility] [address] [place], [address] Urea nitrogen [Mass/Vol] 130 mg/dL Invalid Interpretation Code 01-13 [facility] Comment on above: Result Comment: Crit ical Result(s) Called at: 0646 by: HERMELINDO BURNETT??Results read back by same. Performed By: #### L 500.2500 ####[facility] [address] [place], [address] Bedside Glucoseon 02-14-2025 FINGERSTICK GLU 207 mg/dL High 74-106 [facility] Comment on above: Result Comment: VI GEMENT OF PATIENT CARE PER NURSING PROTOCOL Performed By: #### L 501.080 ####[facility] [address] [place], [address] FINGERSTICK GLU 169 mg/dL High 74-106 [facility] Comment on above: Result Comment: VI GEMENT OF PATIENT CARE PER NURSING PROTOCOL Performed By: #### L 501.080 ####[facility] [address] [place], [address] FINGERSTICK GLU 175 mg/dL High 74-106 [facility] Comment on above: Result Comment: VI GEMENT OF PATIENT CARE PER NURSING PROTOCOL Performed By: #### L 501.080 ####[facility] [address] [place], [address] FINGERSTICK GLU 166 mg/dL High 74-106 [facility] Comment on above: Result Comment: VI GEMENT OF PATIENT CARE PER NURSING PROTOCOL Performed By: #### L 501.080 ####[facility] [address] [place], [address] FINGERSTICK GLU 219 mg/dL High 74-106 [facility] Comment on above: Result Comment: VI GEMENT OF PATIENT CARE PER NURSING PROTOCOL Performed By: #### L 501.080 ####[facility] [address] [place], [address] FINGERSTICK GLU 289 mg/dL High 74-106 [facility] Comment on above: Result Comment: VI GEMENT OF PATIENT CARE PER NURSING PROTOCOL Performed By: #### L 501.080 ####[facility] [address] [place], [address] Blood Gases by [facility] 025 DANIEL TEST Positive Normal [facility] Comment on above: Performed By: #### L 9000.0800 ####[facility] [address] [place], [address] Base excess Calc (Bld) [Moles/Vol] 12 mmol/L High -2 to +2 [facility] Comment on above: Performed By: #### L 9000.0800 ####[facility] [address] [place], [address] Blood Gas Type ART Normal [facility] Comment on above: Performed By: #### L 9000.0800 ####[facility] [address] [place], [address] CO2 [Moles/Vol] 37 mmol/L Normal [facility] Comment on above: Performed By: #### L 9000.0800 ####[facility] [address] [place], [address] FI02 30.0 Normal [facility] Comment on above: Performed By: #### L 8999.08 ####[facility] [address] [place], [address] HCO3 (Bld) [Moles/Vol] 35.2 mmol/L High 22-26 [facility] Comment on above: Performed By: #### L 8999.0800 ####[facility] [address] [place], [address] Mode AC Normal [facility] Comment on above: Performed By: #### L 8999.08 ####[facility] [address] [place], [address] O2 Delivery Dev Adult Vent Normal [facility] Comment on above: Performed By: #### L 8999.08 ####[facility] [address] [place], [address] pCO2 44.3 mmHg Normal 35-45 [facility] Comment on above: Performed By: #### L 8999.08 ####[facility] [address] [place], [address] PEEP 5 Normal [facility] Comment on above: Performed By: #### L 8999.0800 ####[facility] [address] [place], [address] pH (Bld) 7.51 [pH] High 7.35-7.45 [facility] Comment on above: Performed By: #### L 8999.0800 ####[facility] [address] [place], [address] PO2 66 mmHG Low 75-100 [facility] Comment on above: Performed By: #### L 8999.0800 ####[facility] [address] [place], [address] RR 14 Normal [facility] Comment on above: Performed By: #### L 9000.0800 ####[facility] [address] [place], [address] SITE L Radial Normal [facility] Comment on above: Performed By: #### L 9000.0800 ####[facility] [address] [place], [address] SO2 94 Low 95-99 [facility] Comment on above: Performed By: #### L 9000.0800 ####[facility] [address] [place], [address] Vt 450.0 mL Normal [facility] Comment on above: Performed By: #### L 9000.0800 ####[facility] [address] [place], [address] CBC W/Diff, Automatedon 05-2 -2024 Absolute Lymph 1.00 X10 3/uL Normal 0.83-4.51 [facility] Comment on above: Performed By: #### L 100.0100 ####[facility] [address] [place], [address] Absolute Neut 8.8 X10 3/uL High 2.0-7.7 [facility] Comment on above: Performed By: #### L 100.0100 ####[facility] [address] [place], [address] Basophils/100 WBC (Bld) 0.5 % Normal 0-1 [facility] Comment on above: Performed By: #### L 100.0100 ####[facility] [address] [place], [address] Eosinophils/100 WBC (Bld) 1.9 % Normal 0-5 [facility] Comment on above: Performed By: #### L 100.0100 ####[facility] [address] [place], [address] Erythrocyte distribution width (RBC) [Ratio] 18.5 % High 11.6-14.6 [facility] Comment on above: Performed By: #### L 100.0100 ####[facility] [address] [place], [address] Hematocrit (Bld) [Volume fraction] 27.7 % Low 37-47 [facility] Comment on above: Performed By: #### L 100.0100 ####[facility] [address] [place], [address] Hemoglobin (Bld) [Mass/Vol] 8.1 g/dL Low 12.0-15.0 [facility] Comment on above: Performed By: #### L 100.0100 ####[facility] [address] [place], [address] IG% 0.500 Normal 0.0-0.9 [facility] Comment on above: Result Comment: IG% - Immature Granulocytes (promyelocytes, myelocytes andmetamyelocytes) > 1% indicates that a LEFT SHIFT is Present. Performed By: #### L 100.0100 ####[facility] [address] [place], [address] Lymphocytes/100 WBC (Bld) 8.8 % Low 19-41 [facility] Comment on above: Performed By: #### L 100.0100 ####[facility] [address] [place], [address] MCH (RBC) [Entitic mass] 21.3 pg Low 27.0-32.0 [facility] Comment on above: Performed By: #### L 100.0100 ####[facility] [address] [place], [address] MCHC (RBC) [Mass/Vol] 29.2 g/dL Low 32-36 [facility] Comment on above: Performed By: #### L 100.0100 ####[facility] [address] [place], [address] MCV (RBC) [Entitic vol] 72.9 fL Low 81-99 [facility] Comment on above: Performed By: #### L 100.0100 ####[facility] [address] [place], [address] Monocytes/100 WBC (Bld) 10.4 % High 0-10 [facility] Comment on above: Performed By: #### L 100.0100 ####[facility] [address] [place], [address] Neutrophils/100 WBC (Bld) 77.9 % High 47-70 [facility] Comment on above: Performed By: #### L 100.0100 ####[facility] [address] [place], [address] Nucleated RBC (Bld) [#/Vol] 0 10*3/uL Normal 0-5 [facility] Comment on above: Performed By: #### L 100.0100 ####[facility] [address] [place], [address] Platelet mean volume (Bld) [Entitic vol] 10.4 fL Normal 6.2-12.0 [facility] Comment on above: Performed By: #### L 100.0100 ####[facility] [address] [place], [address] Platelets (Bld) [#/Vol] 249 10*3/uL Normal 150-450 [facility] Comment on above: Performed By: #### L 100.0100 ####[facility] [address] [place], [address] RBC (Bld) [#/Vol] 3.80 10*6/uL Low 4.2-5.[address] [facility] Comment on above: Performed By: #### L 100.0100 ####[facility] [address] [place], [address] RDW SD 46.8 fl High 35.1-43.9 [facility] Comment on above: Performed By: #### L 100.0100 ####[facility] [address] [place], [address] WBC (Bld) [#/Vol] 11.3 10*3/uL High 4.4-11.[address] [facility] Comment on above: Performed By: #### L 100.0100 ####[facility] [address] [place], [address] Chest 1 View (Portable)on Chest 1 View (Portable) Normal [facility] Chest 1 View (Portable) Normal [facility] L3890.6102on 02-14-2025 HEP B Surf Ag Non-Reactive Normal Nonreactive [facility] Comment on above: Order Comment: Reaso n for Exam: may need outpatient dialysis Result Comment: Reac tive: Presumptive evidence of HBV. Repeatedly reactivesamples must be confirmed using a neutralization test([employer] HBsAg Confirmatory Test)Non-Reactive: HBsAg not detected; does not exclude thepossibility of exposure to HBV Performed By: #### L 3890.6102 ####[facility] [address] [place], [address] MR/POSTOP.ANEon 02-14-2025 MR/POSTOP.ANE Normal [facility] Operative Reporton Operative Report Normal [facility] Bedside Glucoseon 02-13-2025 FINGERSTICK GLU 341 mg/dL High 74-106 [facility] Comment on above: Result Comment: VI MONTEJO OF PATIENT CARE PER NURSING PROTOCOL Performed By: #### L 501.080 ####[facility] [address] [place], [address] FINGERSTICK GLU 313 mg/dL High 74-106 [facility] Comment on above: Result Comment: VI GEMENT OF PATIENT CARE PER NURSING PROTOCOL Performed By: #### L 501.080 ####[facility] [address] [place], [address] FINGERSTICK GLU 355 mg/dL High 74-106 [facility] Comment on above: Result Comment: VI GEMENT OF PATIENT CARE PER NURSING PROTOCOL Performed By: #### L 501.080 ####[facility] [address] [place], [address] FINGERSTICK GLU 410 mg/dL High -106 [facility] Comment on above: Result Comment: VI GEMENT OF PATIENT CARE PER NURSING PROTOCOL Performed By: #### L 501.080 ####[facility] [address] [place], [address] Blood Gases by CPSon 025 CO2 [Moles/Vol] 38 mmol/L Normal [facility] Comment on above: Performed By: #### L 9000.0800 ####[facility] [address] [place], [address] Consultation - Surgicalon Consultation - Surgical Normal [facility] Absolute lymphocyte countOrd ered By: Herbert Cardona on 02-12-2025 Lymphocytes Auto (Unsp spec) [#/Vol] 0.88 10*3/uL 0.83-4.51 [facility] Absolute neutrophil countOrd ered By: Herbert Cardona on 02-12-2025 Neutrophils (Bld) [#/Vol] 8.5 10*3/uL High 2.0-7.7 [facility] Anion gap in Serum or Plasma Ordered By: Zachery Gomez on 02-12-2025 Anion gap [Moles/Vol] 13 mmol/L 5-15 [facility] Assessment of wrist artery p atency prior to arterial punctureOrdered By: Herbert Cardona on 02-12-2025 Arterial patency Wrist artery --pre arterial puncture Positive [facility] Automated lymphocyte count a s percentage of total leukocytesOrdered By: Herbert Cardona on 02-12-2025 Lymphocytes/100 WBC Auto (Unsp spec) 8.1 % Low 19-41 [facility] BUN/creatinine ratioOrdered By: Zachery Gomez on 02-12-2025 Urea nitrogen/Creatinine [Mass ratio] 46.6 mg/mg High 10-20 [facility] Basophil percentageOrdered B y: Herbert Cardona on 02-12-2025 Basophils/100 WBC (Bld) 0.6 % 0-1 [facility] Blood base excess determinat ionOrdered By: Herbert Cardona on 02-12-2025 Base excess Calc (BldV) [Moles/Vol] 10 mmol/L High -2-2 [facility] Blood bicarbonate measuremen tOrdered By: Herbert Cardona on 02-12-2025 HCO3 (Bld) [Moles/Vol] 32.3 mmol/L High 22-26 [facility] Carbon dioxide, total [Moles /volume] in Central venous bloodOrdered By: Zachery Gomez on 02-12-2025 CO2 [Moles/Vol] 30.1 mmol/L 21.0-32.0 [facility] Chloride assayOrdered By: Malcolm Gomez on 02-12-2025 Chloride [Moles/Vol] 94 mmol/L Low 98-108 [facility] Eosinophil percentageOrdered By: Herbert Cardona on 02-12-2025 Eosinophils/100 WBC (Bld) 1.7 % 0-5 [facility] Erythrocyte distribution wid th ratioOrdered By: Herbert Cardona on 02-12-2025 Erythrocyte distribution width (RBC) [Ratio] 17.4 % High 11.6-14.6 [facility] Erythrocyte distribution wid th standard deviationOrdered By: Herbert Cardona on 02-12-2025 Erythrocyte distribution width (RBC) [Ratio] 45.2 fl High 35.1-43.9 [facility] Glomerular filtration rate ( GFR) estimation/1.73 sq m using serum, plasma, or whole bOrdered By: Zachery Gomez on 02-12-2025 GFR/1.73 sq M.predicted among non-blacks MDRD (S/P/Bld) [Vol rate/Area] 21 mL/min/{1.73_m2} Low >60 [facility] Comment on above: mL/min/1.73m2 CKD-EP I Creatinine Equation (2020) Glucose measurement at bedsi deOrdered By: Herbert Cardona on 02-12-2025 Glucose [Mass/Vol] 386 mg/dL High 74-[address] [facility] Comment on above: MANAGEMENT OF PATIEN T CARE PER NURSING PROTOCOL Hematocrit Auto (Bld) [Volum e fraction]Ordered By: Herbert Cardona on 02-12-2025 Hematocrit (Bld) [Volume fraction] 27.3 % Low 37-47 [facility] Hemoglobin measurementOrdere d By: Herbert Cardona on 02-12-2025 Hemoglobin (Bld) [Mass/Vol] 8.1 g/dL Low 12.0-15.0 [facility] Immature granulocytes/100 WB C Auto (Bld)Ordered By: Herbert Cardona on 02-12-2025 Immature granulocytes/100 WBC (Bld) 1.200 % High 0.0-0.9 [facility] Comment on above: IG% - Immature Granu locytes (promyelocytes, myelocytes and metamyelocytes) > 1% indicates that a LEFT SHIFT is Present. MCV (mean corpuscular volume ) determinationOrdered By: Herbert Cardona on 02-12-2025 MCV (RBC) [Entitic vol] 72.6 fL Low 81-99 [facility] Mean corpuscular hemoglobin (MCH) determinationOrdered By: Herbert Cardona on 02-12-2025 MCH (RBC) [Entitic mass] 21.5 pg Low 27.0-32.0 [facility] Mean corpuscular hemoglobin concentration (MCHC) determinationOrdered By: Herbert Cardona on 02-12-2025 MCHC (RBC) [Mass/Vol] 29.7 g/dL Low 32-36 [facility] Mean platelet volume determi nationOrdered By: Herbert Cardona on 02-12-2025 Platelet mean volume (Bld) [Entitic vol] 9.8 fL 6.2-12.0 [facility] Measurement, pHOrdered By: Laurel Cardona on 02-12-2025 pH (Unsp spec) 7.56 [pH] High 7.35-7.45 [facility] Monocyte percentageOrdered B y: Herbert Cardona on 02-12-2025 Monocytes/100 WBC (Bld) 10.5 % High 0-10 [facility] Neutrophil percentageOrdered By: Herbert Cardona on 02-12-2025 Neutrophils/100 WBC (Bld) 77.9 % High 47-70 [facility] No Panel InformationOrdered By: Herbert Cardona on 02-12-2025 Bedside Blood Gas PEEP 5 [facility] Blood Gas Respiration Rate 14 [facility] Blood Gas Sample Site R Radial [facility] Blood Gas Specimen Type ART [facility] Blood Gas Tidal Volume 450.0 mL [facility] Blood Gas Vent Mode AC [facility] Oxygen Delivery Device Adult Vent [facility] Nucleated red blood cell per centageOrdered By: Herbert Cardona on 02-12-2025 Nucleated RBC/100 WBC (Bld) [Ratio] 0 % 0-5 [facility] Platelet countOrdered By: Paris Cardona on 02-12-2025 Platelets (Bld) [#/Vol] 246 10*3/uL 150-450 [facility] Potassium measurement (mass/ volume)Ordered By: Zachery Gomez on 02-12-2025 Potassium (Unsp spec) [Mass/Vol] 3.4 mmol/L 3.3-5.1 [facility] RBC Auto (Bld) [#/Vol]Ordere d By: Herbert Cardona on 02-12-2025 RBC (Bld) [#/Vol] 3.76 10*6/uL Low 4.2-5.[address] [facility] Serum creatinine measurement (mass/volume)Ordered By: Zachery Gomez on 02-12-2025 Creatinine [Mass/Vol] 2.36 mg/dL High 0.70-1.20 [facility] Serum glucose measurement (m ass/volume)Ordered By: Zachery Gomez on 02-12-2025 Glucose [Mass/Vol] 457 mg/dL High 70-[address] [facility] Comment on above: Critical Result(s) C alled at 0610: by: DK COLE. Results read back by same. Serum or plasma calcium kayleigh urement (mass/volume)Ordered By: Zachery Gomez on 02-12-2025 Calcium [Mass/Vol] 8.3 mg/dL 7.6-11.[address] [facility] Serum or plasma urea nitroge n measurement (mass/volume)Ordered By: Zachery Gomez on 02-12-2025 Urea nitrogen [Mass/Vol] 110 mg/dL High 4-19 [facility] Comment on above: Critical Result(s) C alled at 0610: by: KD COLE. Results read back by same. Sodium levelOrdered By: Angelita Gomez on 02-12-2025 Sodium [Moles/Vol] 137 mmol/L 133-[address] [facility] Total carbon dioxide measure mentOrdered By: Herbert Cardona on 02-12-2025 CO2 [Moles/Vol] 33 mmol/L [facility] White blood cell (WBC) count Ordered By: Hrebert Cardona on 02-12-2025 WBC (Bld) [#/Vol] 10.9 10*3/uL 4.4-11.[address] [facility] Gram stainOrdered By: Jose Pool on 02-08-2025 Microscopic observation Gram stain Nom (Unsp spec) [facility] Immature platelet percentage Ordered By: Zachery Gomez on 02-08-2025 Platelets reticulated/100 platelets Auto (Bld) 1.2 % 1.0-7.9 [facility] Comment on above: Low PLT [...] (Unsp spec) [Mass/Mass] 16 ug/dL Low 50-170 [facility] Lactate dehydrogenase (LDH) measurementOrdered By: Zachery Gomez on 02-08-2025 LDH [Catalytic activity/Vol] 203 U/L 84-246 [facility] Microbial respiratory cultur eOrdered By: Jose Pool on 02-08-2025 Microorganism identified Cx Nom (Unsp spec) or Staphylococcus aureus isolated. [facility] No Panel InformationOrdered By: Zachery Gomez on 02-08-2025 Bld Gas Crit Called To/Read Back By Yes [facility] Blood Gas Notified Time 10:38:53 [facility] Blood Gas Notified Whom YRN [facility] Unsaturated Iron Binding Capacity 283 ug/dL 228-428 [facility] Reticulocyte hemoglobin equi valent (RET-He) measurementOrdered By: Zachery Gomez on 02-08-2025 Hemoglobin (Reticulocytes) [Entitic mass] 16.0 pg Low 30-35 [facility] Reticulocytes Auto (Bld) [#/ Vol]Ordered By: Zachery Gomez on 02-08-2025 Reticulocytes/100 RBC (Bld) 1.81 % High 0.5-1.5 [facility] Serum or plasma ferritin thomas surement (mass/volume)Ordered By: Zachery Gomez on 02-08-2025 Ferritin [Mass/Vol] 63 ng/mL 22-[address] [facility] Serum or plasma iron saturat ion measurement (mass fraction)Ordered By: Zachery Gomez on 02-08-2025 Iron saturation [Mass fraction] 5.0 % Low 13-59 [facility] Stool gastrointestinal hemog lobin detection by immunologic methodOrdered By: Zachery Gomez on 02-08-2025 Lower GI hemoglobin IA Ql (Stl) [facility] Calculated very low density lipoprotein (VLDL) cholesterol measurementOrdered By: Zachery Gomez on 02-06-2025 Calculated very low density lipoprotein (VLDL) cholesterol measurement 13 mg/dL 5-40 [facility] LDL calc ser/plasOrdered By: Zachery Gomez on 02-06-2025 Cholesterol in LDL [Mass/Vol] 69 mg/dL [facility] Comment on above: Ivwzmemeds=063-860 m g/dL & Higher Jywt=435 mg/dL or greater Screening total cholesterol/ high density lipoprotein (HDL) cholesterol ratioOrdered By: Zachery Gomez on 02-06-2025 Cholesterol.total/Antonia sterol in HDL [Mass ratio] 3.20 {ratio} [facility] Serum or plasma cholesterol in HDL measurement (mass/volume)Ordered By: Zachery Gomez on 02-06-2025 Cholesterol in HDL [Mass/Vol] 37 mg/dL Low >40 [facility] Comment on above: National Cholesterol Education Program (NCEP) guidelines:<40 mg/dL: Low HDL-cholesterol (major risk factor for CHD)>= 60 mg/dL: High HDL-cholesterol (negative risk factor for CHD)HDL-cholesterol is affected by a number of factors, e.g. smoking, exercise, hormones, sex and age. Serum or plasma cholesterol measurement (mass/volume)Ordered By: Zachery Gomez on 02-06-2025 Cholesterol [Mass/Vol] 119 mg/dL <201 [facility] Comment on above: Cholesterol level, D esirable <200 mg/dLBorderline high cholesterol 200-239 mg/dLHigh cholesterol >=240 mg/dLRecommendations of the NCEP Adult Treatment Panel for the following risk-cutoff thresholds for the [place] Citizen [place] population. TSH DL <= 0.005 mIU/L QnOrde red By: Zachery Gomez on 02-06-2025 TSH Qn 3.320 uIU/mL 0.300-4.200 [facility] Triglycerides measurementOrd ered By: Zachery Gomez on 02-06-2025 Triglyceride [Mass/Vol] 65 mg/dL <199 [facility] Comment on above: The drugs N-Acetylcy steine and Metamizole may falsely depress this assay. Normal range: <150 mg/dLBorderline High: 150-199 mg/dLHigh: 200-499 mg/dLVery High: >500 mg/dL Absolute lymphocyte countOrd ered By: ED PROVIDER on 02-05-2025 Lymphocytes Auto (Unsp spec) [#/Vol] 0.51 10*3/uL Low 0.83-4.51 [facility] Absolute neutrophil countOrd ered By: ED PROVIDER on 02-05-2025 Neutrophils (Bld) [#/Vol] 18.4 10*3/uL High 2.0-7.7 [facility] Activated partial thrombopla stin time (aPTT) in platelet poor plasma by coagulation aOrdered By: Eduardo oCrona on 02-05-2025 aPTT Coag (PPP) [Time] 31.7 s 24.1-36.2 [facility] Anion gap in Serum or Plasma Ordered By: Eduardo Corona on 02-05-2025 Anion gap [Moles/Vol] 19 mmol/L High 5-15 [facility] Assessment of wrist artery p atency prior to arterial punctureOrdered By: Zachery Gomez on 02-05-2025 Arterial patency Wrist artery --pre arterial puncture Positive [facility] Automated lymphocyte count a s percentage of total leukocytesOrdered By: ED PROVIDER on 02-05-2025 Lymphocytes/100 WBC Auto (Unsp spec) 2.5 % Low 19-41 [facility] BUN/creatinine ratioOrdered By: Eduardo Corona on 02-05-2025 Urea nitrogen/Creatinine [Mass ratio] 24.9 mg/mg High 10-20 [facility] Basophil percentageOrdered B y: ED PROVIDER on 02-05-2025 Basophils/100 WBC (Bld) 0.3 % 0-1 [facility] Bilirubin Test strip Ql (U)O rdered By: Eduardo Corona on 02-05-2025 Bilirubin Ql (U) Negative Negative [facility] Blood base excess determinat ionOrdered By: Zachery Gomez on 02-05-2025 Base excess Calc (BldV) [Moles/Vol] -8 mmol/L Low -2-2 [facility] Blood bicarbonate measuremen tOrdered By: Zachery Gomez on 02-05-2025 HCO3 (Bld) [Moles/Vol] 20.3 mmol/L Low 22-26 [facility] Blood cultureOrdered By: Isabel Corona on 02-05-2025 Bacteria identified Cx Nom (Bld) No growth in 5 days. [facility] Bacteria identified Cx Nom (Bld) No growth in 5 days. [facility] Carbon dioxide, total [Moles /volume] in Central venous bloodOrdered By: Eduardo Corona on 02-05-2025 CO2 [Moles/Vol] 15.7 mmol/L Low 21.0-32.0 [facility] Chloride assayOrdered By: Josh Corona on 02-05-2025 Chloride [Moles/Vol] 100 mmol/L 98-108 [facility] Eosinophil percentageOrdered By: ED PROVIDER on 02-05-2025 Eosinophils/100 WBC (Bld) 0.0 % 0-5 [facility] Erythrocyte distribution wid th ratioOrdered By: ED PROVIDER on 02-05-2025 Erythrocyte distribution width (RBC) [Ratio] 17.0 % High 11.6-14.6 [facility] Erythrocyte distribution wid th standard deviationOrdered By: ED PROVIDER on 02-05-2025 Erythrocyte distribution width (RBC) [Ratio] 45.6 fl High 35.1-43.9 [facility] Glomerular filtration rate ( GFR) estimation/1.73 sq m using serum, plasma, or whole bOrdered By: Eduardo Corona on 02-05-2025 GFR/1.73 sq M.predicted among non-blacks MDRD (S/P/Bld) [Vol rate/Area] 21 mL/min/{1.73_m2} Low >60 [facility] Comment on above: mL/min/1.73m2 CKD-EP I Creatinine Equation (2020) Hematocrit Auto (Bld) [Volum e fraction]Ordered By: ED PROVIDER on 02-05-2025 Hematocrit (Bld) [Volume fraction] 27.9 % Low 37-47 [facility] Hemoglobin measurementOrdere d By: ED PROVIDER on 02-05-2025 Hemoglobin (Bld) [Mass/Vol] 8.0 g/dL Low 12.0-15.0 [facility] Immature granulocytes/100 WB C Auto (Bld)Ordered By: ED PROVIDER on 02-05-2025 Immature granulocytes/100 WBC (Bld) 0.600 % 0.0-0.9 [facility] Comment on above: IG% - Immature Granu locytes (promyelocytes, myelocytes and metamyelocytes) > 1% indicates that a LEFT SHIFT is Present. International normalized rat io (INR) calculationOrdered By: Eduardo Corona on 02-05-2025 INR Coag (Bld) [Relative time] 1.4 {INR} [facility] Ketones Test strip Ql (U)Ord ered By: Eduardo Corona on 02-05-2025 Ketones Ql (U) Negative Negative [facility] Lactic acid measurementOrder ed By: Eduardo Corona on 02-05-2025 Lactate [Moles/Vol] 1.8 mmol/L 0.0-2.[address] [facility] Lactate [Moles/Vol] 2.5 mmol/L High 0.0-2.[address] [facility] Comment on above: Critical Result(s) C alled at: 02/05/2025-12:10 by: Yamil Lepe to Missy Luna Results read back by same. MCV (mean corpuscular volume ) determinationOrdered By: ED PROVIDER on 02-05-2025 MCV (RBC) [Entitic vol] 75.2 fL Low 81-99 [facility] Magnesium measurement (mass/ volume)Ordered By: Zachery Gomez on 02-05-2025 Magnesium (Unsp spec) [Mass/Vol] 2.6 mg/dL High 1.5-2.2 [facility] Mean corpuscular hemoglobin (MCH) determinationOrdered By: ED PROVIDER on 02-05-2025 MCH (RBC) [Entitic mass] 21.6 pg Low 27.0-32.0 [facility] Mean corpuscular hemoglobin concentration (MCHC) determinationOrdered By: ED PROVIDER on 02-05-2025 MCHC (RBC) [Mass/Vol] 28.7 g/dL Low 32-36 [facility] Mean platelet volume determi nationOrdered By: ED PROVIDER on 02-05-2025 Platelet mean volume (Bld) [Entitic vol] 10.6 fL 6.2-12.0 [facility] Measurement, pHOrdered By: Martínez Gomez on 02-05-2025 pH (Unsp spec) 7.21 [pH] Low 7.35-7.45 [facility] Microscopic analysis of urin e for red blood cells (RBC)Ordered By: Eduardo Corona on 02-05-2025 Microscopic analysis of urine for red blood cells (RBC) 0 SEEN /hpf 0-5 [facility] Monocyte percentageOrdered B y: ED PROVIDER on 02-05-2025 Monocytes/100 WBC (Bld) 6.9 % 0-10 [facility] Mucus LM Ql (Urine sed)Order ed By: Eduardo Corona on 02-05-2025 Mucus Ql (Urine sed) 0 SEEN /hpf [facility] Nasal methicillin resistant Staphylococcus aureus (MRSA) DNA detection by PCROrdered By: Zachery Gomez on 02-05-2025 MRSA DNA PATEL+probe Ql (Nose) [facility] Natriuretic peptide.B prohor luke N-Terminal [Mass/volume] in Serum or PlasmaOrdered By: Eduardo Corona on 02-05-2025 Natriuretic peptide.B prohormone N-Terminal [Mass/Vol] 33324 pg/mL High <1800 [facility] Comment on above: Heart Failure Unlike ly: < 300 pg/mLHeart Failure Likely< 50 Years: > 450 pg/mL50-75 Years: > 900 pg/mL>75 Years: > 1800 pg/mL Neutrophil percentageOrdered By: ED PROVIDER on 02-05-2025 Neutrophils/100 WBC (Bld) 89.7 % High 47-70 [facility] Nitrite Test strip Ql (U)Ord ered By: Eduardo Corona on 02-05-2025 Nitrite Ql (U) Negative Negative [facility] No Panel InformationOrdered By: Zachery Gomez on 02-05-2025 Blood Gas Sample Site R Radial [facility] Blood Gas Specimen Type ART [facility] Blood Gas Vent Mode Not entered [facility] Oxygen Delivery Device BiPAP [facility] Nucleated red blood cell per centageOrdered By: ED PROVIDER on 02-05-2025 Nucleated RBC/100 WBC (Bld) [Ratio] 0 % 0-5 [facility] Platelet countOrdered By: ED PROVIDER on 02-05-2025 Platelets (Bld) [#/Vol] 226 10*3/uL 150-450 [facility] Potassium measurement (mass/ volume)Ordered By: Eduardo Corona on 02-05-2025 Potassium (Unsp spec) [Mass/Vol] 5.5 mmol/L High 3.3-5.1 [facility] Comment on above: Hemolysis present, R esults could be affected. Protein Test strip Ql (U)Ord ered By: Eduardo Corona on 02-05-2025 Protein Ql (U) 30 mg/dl High Negative [facility] Prothrombin timeOrdered By: Eduardo Corona on 02-05-2025 PT Coag (PPP) [Time] 17.1 s High 11.7-14.9 [facility] RBC Auto (Bld) [#/Vol]Ordere d By: ED PROVIDER on 02-05-2025 RBC (Bld) [#/Vol] 3.71 10*6/uL Low 4.2-5.[address] [facility] Serum creatinine measurement (mass/volume)Ordered By: Eduardo Corona on 02-05-2025 Creatinine [Mass/Vol] 2.32 mg/dL High 0.70-1.20 [facility] Serum glucose measurement (m ass/volume)Ordered By: Eduardo Corona on 02-05-2025 Glucose [Mass/Vol] 259 mg/dL High 70-[address] [facility] Serum or plasma calcium kayleigh urement (mass/volume)Ordered By: Eduardo Corona on 02-05-2025 Calcium [Mass/Vol] 9.1 mg/dL 7.6-11.[address] [facility] Serum or plasma urea nitroge n measurement (mass/volume)Ordered By: Eduardo Corona on 02-05-2025 Urea nitrogen [Mass/Vol] 58 mg/dL High 4-19 [facility] Sodium levelOrdered By: Eduardo Corona on 02-05-2025 Sodium [Moles/Vol] 135 mmol/L 133-[address] [facility] Squamous epithelial cells de tection in urine sediment by light microscopyOrdered By: Eduardo Corona on 02-05-2025 Epithelial cells.squamous LM Ql (Urine sed) 0 SEEN /hpf 5-10 [facility] Total carbon dioxide measure mentOrdered By: Zachery Gomez on 02-05-2025 CO2 [Moles/Vol] 22 mmol/L [facility] Troponin T.cardiac [Mass/vol ume] in Serum or Plasma by High sensitivity methodOrdered By: Zachery Gomez on 02-05-2025 Troponin T.cardiac High sensitivity method [Mass/Vol] 270 ng/L High <14 [facility] Comment on above: Critical Result(s) C alled at: 1749 by: JOSEPH MI Results read back by same. Troponin T.cardiac [Mass/vol ume] in Serum or Plasma by High sensitivity methodOrdered By: Eduardo Corona on 02-05-2025 Troponin T.cardiac High sensitivity method [Mass/Vol] 241 ng/L High <14 [facility] Comment on above: Critical Result(s) C alled at 1358: by: KD KHAN TO ROSALINDA. Results read back by same. Troponin T.cardiac High sensitivity method [Mass/Vol] 218 ng/L High <14 [facility] Comment on above: Critical Result(s) C alled at 1154: by: [facility] Results read back by same. Urine clarityOrdered By: Isabel Corona on 02-05-2025 Clarity (U) Clear Clear [facility] Urine color determinationOrd ered By: Eduardo Corona on 02-05-2025 Color (U) Yellow Yellow [facility] Urine cultureOrdered By: Isabel Corona on 02-05-2025 Bacteria identified Cx Nom (U) Presumptive E. coli Abnormal [facility] Urine glucose detectionOrder ed By: Eduardo Corona on 02-05-2025 Glucose Ql (U) 100 mg/dl High Normal [facility] Urine leukocyte esterase det ection by dipstickOrdered By: Eduardo Corona on 02-05-2025 Leukocyte esterase Test strip Ql (U) 500 /ul High Negative [facility] Urine pHOrdered By: Eduardo galeana on 02-05-2025 pH (U) 5.0 [pH] 5.0 - 8.0 [facility] Urine sediment bacteria coun t by microscopy (number/high power field)Ordered By: Eduardo Corona on 02-05-2025 Bacteria LM.HPF (Urine sed) [#/Area] 0 /[HPF] None Seen [facility] Urine specific gravity measu rementOrdered By: Eduardo Corona on 02-05-2025 Specific gravity (U) [Rel density] 1.025 1.002-1.030 [facility] Urine urobilinogen measureme ntOrdered By: Eduardo Corona on 02-05-2025 Urobilinogen Ql (U) Normal mg/dl Normal [facility] White blood cell (WBC) count Ordered By: ED PROVIDER on 02-05-2025 WBC (Bld) [#/Vol] 20.5 10*3/uL High 4.4-11.[address] [facility] White blood cell countOrdere d By: Eduardo Corona on 02-05-2025 White blood cell count 10-25 SEEN /hpf 0-5 [facility] Anion gap in Serum or Plasma Ordered By: Janusz Reaves on 01-29-2025 Anion gap [Moles/Vol] 12 mmol/L 5-15 [facility] BUN/creatinine ratioOrdered By: Janusz Reaves on 01-29-2025 Urea nitrogen/Creatinine [Mass ratio] 26.2 mg/mg High 10-20 [facility] Carbon dioxide, total [Moles /volume] in Central venous bloodOrdered By: Janusz Reaves on 01-29-2025 CO2 [Moles/Vol] 22.0 mmol/L 21.0-32.0 [facility] Chloride assayOrdered By: Eve Reaves on 01-29-2025 Chloride [Moles/Vol] 105 mmol/L 98-108 [facility] Glomerular filtration rate ( GFR) estimation/1.73 sq m using serum, plasma, or whole bOrdered By: Janusz Reaves on 01-29-2025 GFR/1.73 sq M.predicted among non-blacks MDRD (S/P/Bld) [Vol rate/Area] 25 mL/min/{1.73_m2} Low >60 [facility] Comment on above: mL/min/1.73m2 CKD-EP I Creatinine Equation (2020) Natriuretic peptide.B prohor luke N-Terminal [Mass/volume] in Serum or PlasmaOrdered By: Janusz Reaves on 01-29-2025 Natriuretic peptide.B prohormone N-Terminal [Mass/Vol] 3923 pg/mL High <1800 [facility] Comment on above: Heart Failure Unlike ly: < 300 pg/mLHeart Failure Likely< 50 Years: > 450 pg/mL50-75 Years: > 900 pg/mL>75 Years: > 1800 pg/mL Potassium measurement (mass/ volume)Ordered By: Janusz Reaves on 01-29-2025 Potassium (Unsp spec) [Mass/Vol] 4.4 mmol/L 3.3-5.1 [facility] Serum creatinine measurement (mass/volume)Ordered By: Janusz Reaves on 01-29-2025 Creatinine [Mass/Vol] 2.00 mg/dL High 0.70-1.20 [facility] Serum glucose measurement (m ass/volume)Ordered By: Janusz Reaves on 01-29-2025 Glucose [Mass/Vol] 139 mg/dL High 70-[address] [facility] Serum or plasma calcium kayleigh urement (mass/volume)Ordered By: Janusz Reaves on 01-29-2025 Calcium [Mass/Vol] 9.3 mg/dL 7.6-11.[address] [facility] Serum or plasma urea nitroge n measurement (mass/volume)Ordered By: Janusz Reaves on 01-29-2025 Urea nitrogen [Mass/Vol] 52 mg/dL High 4-19 [facility] Sodium levelOrdered By: Jenelle Reaves on 01-29-2025 Sodium [Moles/Vol] 139 mmol/L 133-[address] [facility] CBC W Auto Differential pane l (Bld)on 12-18-2024 Basophils (Bld) [#/Vol] 0.07 10*3/uL Normal <0.11 [facility] Comment on above: Order Comment: Speci men Type: BLOOD SPECIMENOrdering Facility: [facility] Address: [address] [place] [address] Performed By: #### 5 7021-8 ####[facility] LABCLIA [id number] [place] [address] [place] Basophils/100 WBC (Bld) 0.9 % Normal C [facility] Comment on above: Order Comment: Speci men Type: BLOOD SPECIMENOrdering Facility: [facility] Address: [address] [place] [address] Performed By: #### 5 7021-8 ####[facility] LABCLIA [id number] [place] [address] [place] Differential cell count method Nom (Bld) Auto Normal [facility] Comment on above: Order Comment: Speci men Type: BLOOD SPECIMENOrdering Facility: [facility] Address: [address] [place] [address] Performed By: #### 5 7021-8 ####[facility] LABCLIA [id number] [place] [address] [place] Eosinophils (Bld) [#/Vol] 0.17 10*3/uL Normal <0.46 [facility] Comment on above: Order Comment: Speci men Type: BLOOD SPECIMENOrdering Facility: [facility] Address: [address] [place] [address] Performed By: #### 5 7021-8 ####[facility] LABCLIA [id number] [place] [address] [place] Eosinophils/100 WBC (Bld) 2.2 % Normal [facility] Comment on above: Order Comment: Speci men Type: BLOOD SPECIMENOrdering Facility: [facility] Address: [address] [place] [address] Performed By: #### 5 7021-8 ####[facility] LABCLIA [id number] [place] [address] [place] Erythrocyte distribution width (RBC) [Ratio] 18.2 % High 11.5-15.0 [facility] Comment on above: Order Comment: Speci men Type: BLOOD SPECIMENOrdering Facility: [facility] Address: [address] [place] [address] Performed By: #### 5 7021-8 ####[facility] LABCLIA [id number] [address] [place] Hematocrit (Bld) [Volume fraction] 27.1 % Low 36.0-46.0 [facility] Comment on above: Order Comment: Speci men Type: BLOOD SPECIMENOrdering Facility: [facility] Address: [address] [place] [address] Performed By: #### 5 7021-8 ####[facility] LABCLIA [id number] [place] [address] [place] Hemoglobin (Bld) [Mass/Vol] 7.5 g/dL Low 11.5-15.5 [facility] Comment on above: Order Comment: Speci men Type: BLOOD SPECIMENOrdering Facility: [facility] Address: [address] [place] [address] Performed By: #### 5 7021-8 ####[facility] LABCLIA [id number] [place] [address] [place] Immature granulocytes (Bld) [#/Vol] 10*3/uL Normal <0.10 [facility] Comment on above: Order Comment: Speci men Type: BLOOD SPECIMENOrdering Facility: [facility] Address: [address] [place] [address] Performed By: #### 5 7021-8 ####[facility] LABCLIA [id number] [place] [address] [place] Immature granulocytes/100 WBC (Bld) 0.3 % Normal [facility] Comment on above: Order Comment: Speci men Type: BLOOD SPECIMENOrdering Facility: [facility] Address: [address] [place] [address] Performed By: #### 5 7021-8 ####[facility] LABCLIA [id number] [place] [address] [place] Lymphocytes (Bld) [#/Vol] 1.05 10*3/uL Normal 1.00-4.00 [facility] Comment on above: Order Comment: Speci men Type: BLOOD SPECIMENOrdering Facility: [facility] Address: [address] [place] [address] Performed By: #### 5 7021-8 ####[facility] LABCLIA [id number] [place] [address] [place] Lymphocytes/100 WBC (Bld) 13.6 % Normal [facility] Comment on above: Order Comment: Speci men Type: BLOOD SPECIMENOrdering Facility: [facility] Address: [address] [place] [address] Performed By: #### 5 7021-8 ####[facility] [id number] [place] [address] [place] MCH (RBC) [Entitic mass] 23.6 pg Low 26.0-34.0 [facility] Comment on above: Order Comment: Speci men Type: BLOOD SPECIMENOrdering Facility: [facility] Address: [address] [place] [address] Performed By: #### 5 7021-8 ####[facility] [id number] [place] [address] [place] MCHC (RBC) [Mass/Vol] 27.7 g/dL Low 30.5-36.0 [facility] Comment on above: Order Comment: Speci men Type: BLOOD SPECIMENOrdering Facility: [facility] Address: [address] [place] [address] Performed By: #### 5 7021-8 ####[facility] [id number] [place] [address] [place] MCV (RBC) [Entitic vol] 85.2 fL Normal 80.0-100.0 C [facility] Comment on above: Order Comment: Speci men Type: BLOOD SPECIMENOrdering Facility: [facility] Address: [address] [place] [address] Performed By: #### 5 7021-8 ####[facility] [id number] [place] [address] [place] Monocytes (Bld) [#/Vol] 0.70 10*3/uL Normal <0.87 [facility] Comment on above: Order Comment: Speci men Type: BLOOD SPECIMENOrdering Facility: [facility] Address: [address] [place] [address] Performed By: #### 5 7021-8 ####[facility] LABCLIA [id number] [address] [place] [address] [place] Monocytes/100 WBC (Bld) 9.1 % Normal [facility] Comment on above: Order Comment: Speci men Type: BLOOD SPECIMENOrdering Facility: [facility] Address: [address] [place] [address] Performed By: #### 5 7021-8 ####[facility] LABCLIA [id number] [place] [address] [place] Neutrophils (Bld) [#/Vol] 5.69 10*3/uL Normal 1.45-7.50 [facility] Comment on above: Order Comment: Speci men Type: BLOOD SPECIMENOrdering Facility: [facility] Address: [address] [place] [address] Performed By: #### 5 7021-8 ####[facility] LABCLIA [id number] [place] [address] [place] Neutrophils/100 WBC (Bld) 73.9 % Normal [facility] Comment on above: Order Comment: Speci men Type: BLOOD SPECIMENOrdering Facility: [facility] Address: [address] [place] [address] Performed By: #### 5 7021-8 ####[facility] LABCLIA [id number] [place] [id number] [place] Nucleated RBC (Bld) [#/Vol] 10*3/uL Normal <0.01 [facility] Comment on above: Order Comment: Speci men Type: BLOOD SPECIMENOrdering Facility: [facility] Address: [address] [place] [address] Performed By: #### 5 7021-8 ####[facility] LABCLIA [id number] [address] [address] [place] Nucleated RBC/100 WBC (Bld) [Ratio] 0.0 /100 WBC Normal [facility] Comment on above: Order Comment: Speci men Type: BLOOD SPECIMENOrdering Facility: [facility] Address: [address] [place] [address] Performed By: #### 5 7021-8 ####[facility] LABIA [id number] [place] [address] [place] Platelet mean volume (Bld) [Entitic vol] 10.8 fL Normal 9.0-12.7 [facility] Comment on above: Order Comment: Speci men Type: BLOOD SPECIMENOrdering Facility: [facility] Address: [address] [place] [address] Performed By: #### 5 7021-8 ####[facility] LABIA [id number] [place] [address] [place] Platelets (Bld) [#/Vol] 297 10*3/uL Normal 150-400 [facility] Comment on above: Order Comment: Speci men Type: BLOOD SPECIMENOrdering Facility: [facility] Address: [address] [place] [address] Performed By: #### 5 7021-8 ####[facility] LABIA [id number] [place] [address] [place] RBC (Bld) [#/Vol] 3.18 10*6/uL Low 3.90-5.20 [facility] Comment on above: Order Comment: Speci men Type: BLOOD SPECIMENOrdering Facility: [facility] Address: [address] [place] [address] Performed By: #### 5 7021-8 ####[facility] LABIA [id number] [place] [address] [place] WBC (Bld) [#/Vol] 7.70 10*3/uL Normal 3.70-11.00 [facility] Comment on above: Order Comment: Speci men Type: BLOOD SPECIMENOrdering Facility: [facility] Address: [address] [place] [address] Performed By: #### 5 7021-8 ####[facility] LABCLIA [id number] [address] [address] [place] Comprehensive metabolic 2000 panelon 12-18-2024 Albumin [Mass/Vol] 4.1 g/dL Normal 3.9-4.9 [facility] Comment on above: Order Comment: Speci men Type: BLOOD SPECIMENOrdering Facility: [facility] Address: [address] [place] [address] Performed By: #### 2 4331-1, 06422-5 ####[facility] LABCLIA [id number] [place] [id number] [place] ALP [Catalytic activity/Vol] 90 U/L Normal 34-123 [facility] Comment on above: Order Comment: Speci men Type: BLOOD SPECIMENOrdering Facility: [facility] Address: [address] [place] [address] Performed By: #### 2 4331-, 93553-3 ####[facility] LABIA [id number] [place] [id number] [place] ALT [Catalytic activity/Vol] 11 U/L Normal 7-38 [facility] Comment on above: Order Comment: Speci men Type: BLOOD SPECIMENOrdering Facility: [facility] Address: [address] [place], [place] [address] Performed By: #### 2 4331-1, 14392-8 ####[facility] LABCLIA [id number] [address] [address] [place] Anion gap [Moles/Vol] 12 mmol/L Normal 8-15 [facility] Comment on above: Order Comment: Speci men Type: BLOOD SPECIMENOrdering Facility: [facility] Address: [address] [place], [place] [address] Performed By: #### 2 4331-1, 45334-1 ####[facility] LABCLIA [id number] [place] [id number] [place] AST [Catalytic activity/Vol] 14 U/L Normal 13-35 [facility] Comment on above: Order Comment: Speci men Type: BLOOD SPECIMENOrdering Facility: [facility] Address: [address] [place] [address] Performed By: #### 2 4331-1, 77881-0 ####[facility] LABIA [id number] [place] [address] [place] Bilirubin [Mass/Vol] 0.4 mg/dL Normal 0.2-1.3 [facility] Comment on above: Order Comment: Speci men Type: BLOOD SPECIMENOrdering Facility: [facility] Address: [address] [place] [address] Performed By: #### 2 4331-1, 07016-1 ####[facility] LABIA [id number] [place] [address] [place] Calcium [Mass/Vol] 9.8 mg/dL Normal 8.5-10.2 [facility] Comment on above: Order Comment: Speci men Type: BLOOD SPECIMENOrdering Facility: [facility] Address: [address] [place] [address] Performed By: #### 2 4331-1, 42244-5 ####[facility] LABIA [id number] [place] [address] [place] Chloride [Moles/Vol] 109 mmol/L High 98-107 [facility] Comment on above: Order Comment: Speci men Type: BLOOD SPECIMENOrdering Facility: [facility] Address: [address] [place] [address] Performed By: #### 2 4331-1, 61493-4 ####[facility] LABCLIA [id number] [place] [id number] [place] CO2 [Moles/Vol] 21 mmol/L Low 22-30 [facility] Comment on above: Order Comment: Speci men Type: BLOOD SPECIMENOrdering Facility: [facility] Address: [address] [place] [address] Performed By: #### 2 4331-, ####[facility] LABCLIA [id number] [address] [address] [place] Creatinine [Mass/Vol] 1.95 mg/dL High 0.58-0.96 [facility] Comment on above: Order Comment: Speci men Type: BLOOD SPECIMENOrdering Facility: [facility] Address: [address] [place] [address] Performed By: #### 2 433-, ####[facility] LABCLIA [id number] [address] [address] [place] Creatinine and Glomerular filtration rate.predicted panel (S/P/Bld) 26 mL/min/1.73m??? Low >=60 [facility] Comment on above: Order Comment: Speci men Type: BLOOD SPECIMENOrdering Facility: [facility] Address: [address] [place] [address] Result Comment: Kathrine mated Glomerular Filtration Rate [...] actual GFR. Performed By: #### 2 4331-1, ####[facility] LABCLIA [id number] [address] [address] [place] Glucose [Mass/Vol] 132 mg/dL High 74-99 [facility] Comment on above: Order Comment: Speci men Type: BLOOD SPECIMENOrdering Facility: [facility] Address: [address] [place] [address] Result Comment: The [place] Diabetes Association (ADA) provides guidance for cutoff [...] Standards of Medical Care in Diabetes 2016, [place] Diabetes Association. Diabetes Care. 2016.39(Suppl 1). Performed By: #### 2 4331-1, ####[facility] LABIA [id number] [place] [address] [place] Potassium [Moles/Vol] 5.2 mmol/L High 3.7-5.1 [facility] Comment on above: Order Comment: Speci men Type: BLOOD SPECIMENOrdering Facility: [facility] Address: [address] [place] [address] Performed By: #### 2 4331-, ####[facility] LABIA [id number] [place] [id number] [place] Protein [Mass/Vol] 7.5 g/dL Normal 6.3-8.0 [facility] Comment on above: Order Comment: Speci men Type: BLOOD SPECIMENOrdering Facility: [facility] Address: [address] [place] [address] Performed By: #### 2 4331-, ####[facility] LABIA [id number] [address] [address] [place] Sodium [Moles/Vol] 142 mmol/L Normal 136-144 [facility] Comment on above: Order Comment: Speci men Type: BLOOD SPECIMENOrdering Facility: [facility] Address: [address] [place] [id number] Performed By: #### 2 4331-1, 91506-6 ####[facility] LABCLIA [id number] [address] [address] [place] Urea nitrogen [Mass/Vol] 47 mg/dL High 7-21 [facility] Comment on above: Order Comment: Trevori men Type: BLOOD SPECIMENOrdering Facility: [facility] Address: [address] [place] [address] Performed By: #### 2 4331-1, 35246-1 ####[facility] LABIA [id number] [address] [address] [place] HbA1c (Bld)on 12-18-2024 Average glucose Estimated from glycated hemoglobin (Bld) [Mass/Vol] 140 mg/dL Normal [facility] Comment on above: Order Comment: [facility] Type: BLOOD SPECIMENOrdering Facility: [facility] Address: [address] [place] [address] Result Comment: eAG: (Estimated average glucose) is a calculated value from HgbA1c and is traveling representative of the average blood glucose level in the last 2-3 month period. Performed By: #### 5 5454-3 ####[facility] LABCLIA [id number] [address] [place] [address] [place] HbA1c (Bld) [Mass fraction] 6.5 % High 4.3-5.6 [facility] Comment on above: Order Comment: Speci men Type: BLOOD SPECIMENOrdering Facility: [facility] Address: [address] [place] [address] Result Comment: Amer [place] Diabetes Association guidelines indicate that patients with HgbA1c in the range 5.7-6.4% are at increased risk for development of diabetes, and intervention by lifestyle modification may be beneficial. HgbA1c greater or equal to 6.5% is considered diagnostic of diabetes. Performed By: #### 5 5454-3 ####[facility] LABCLIA [id number] [address] [address] [place] Lipid 1996 panelon 5 Cholesterol [Mass/Vol] 113 mg/dL Normal <200 [facility] Comment on above: Order Comment: Speci men Type: BLOOD SPECIMENOrdering Facility: [facility] Address: [address] [place] [address] Result Comment: <200 mg/dL, Desirable 200-239 mg/dL, Borderline high >239 mg/dL, High Performed By: #### 2 4331-1, 17001-7 ####[facility] LABCLIA [id number] [facility] [id number] [address] [place] Cholesterol in HDL [Mass/Vol] 38 mg/dL Low >39 [facility] Comment on above: Order Comment: Speci men Type: BLOOD SPECIMENOrdering Facility: [facility] Address: [address] [place] [address] Result Comment: 40-5 9 mg/dL, Acceptable >59 mg/dL, High: Negative risk factor for coronary heart disease <40 mg/dL, Low: Positive risk factor for coronary heart disease Performed By: #### 2 4331-1, 34875-2 ####[facility] LABCLIA [id number] [facility] [id number] [address] [place] Cholesterol in LDL [Mass/Vol] 58 mg/dL Normal <100 [facility] Comment on above: Order Comment: Speci men Type: BLOOD SPECIMENOrdering Facility: [facility] Address: [address] [place] [address] Result Comment: <100 mg/dL, Optimal 100-129 mg/dL, Near optimal/above optimal 130-159 mg/dL, Borderline high 160-189 mg/dL, High >189 mg/dL, Very high Secondary prevention optimal LDL Cholesterol levels are recommended to be < 70 mg/dL Performed By: #### 2 4331-1, 12715-8 ####[facility] LABCLIA [id number] [facility] [id number] [address] [place] Cholesterol in LDL/Cholesterol in HDL [Mass ratio] 1.53 {ratio} Normal <2.54 [facility] Comment on above: Order Comment: Speci men Type: BLOOD SPECIMENOrdering Facility: [facility] Address: [address] [place] [address] Result Comment: Ermias sheffield: 1. National Cholesterol Education Program ATP III Guideline At-A-Glance Quick Desk Reference: National Heart, Lung, and Blood [place]. National Institutes of Health. 2001: NIH Publication No. 01-3305. 2. An International Atherosclerosis Society position paper: global recommendations for the management of dyslipidemia: executive summary, Atherosclerosis. 2014: 232(2):410-413. Performed By: #### 2 4331-1, ####[facility] LABCLIA [id number] [place] [address] [place] Cholesterol in VLDL [Mass/Vol] 17 mg/dL Normal <30 [facility] Comment on above: Order Comment: Speci men Type: BLOOD SPECIMENOrdering Facility: [facility] Address: [address] [place] [address] Performed By: #### 2 433-, ####[facility] LABIA [id number] [place] [address] [place] Cholesterol non HDL [Mass/Vol] 75 mg/dL Normal <130 [facility] Comment on above: Order Comment: Trevori men Type: BLOOD SPECIMENOrdering Facility: [facility] Address: [address] [place] [address] Result Comment: <130 mg/dL, Optimal 130-159 mg/dL, Near optimal/above optimal 160-189 mg/dL, Borderline high 190-219 mg/dL, High >219 mg/dL, Very high Secondary prevention optimal non HDL Cholesterol levels are recommended to be <100 mg/dL Performed By: #### 2 433-1, 59953-3 ####[facility] LABCLIA [id number] [address] [address] [place] Cholesterol.total/Antonia sterol in HDL [Mass ratio] 2.97 {ratio} Normal <5.10 [facility] Comment on above: Order Comment: Speci men Type: BLOOD SPECIMENOrdering Facility: [facility] Address: [address] [place] [address] Performed By: #### 2 4331-1, 72720-5 ####[facility] LABCLIA [id number] [place] [address] [place] FASTING TIME 12 hrs Normal [facility] Comment on above: Order Comment: Speci men Type: BLOOD SPECIMENOrdering Facility: [facility] Address: [address] [place] [address] Performed By: #### 2 4331-1, 64328-2 ####[facility] LABCLIA [id number] [place] [address] [place] Triglyceride [Mass/Vol] 86 mg/dL Normal <150 C [facility] Comment on above: Order Comment: Speci men Type: BLOOD SPECIMENOrdering Facility: [facility] Address: [address] [place] [address] Result Comment: <150 mg/dL, Normal 150-199 mg/dL, Borderline high 200-499 mg/dL, High >499 mg/dL, Very high Performed By: #### 2 4331-1, 78471-5 ####[facility] LABCLIA [id number] [place] [address] [place] CNOVon 11-27-2024 CNOV Office Visit (FAMPWS ) ROSA MYERS ([id number]) 1950 F Date Time Provider Department 11/27/24 2:00 PM RUFINA [facility] During your visit today, we recorded the following information about you: Pulse Respiration Blood pressure Weight 65/minute 16/minute 126/80 109.8 kg Rufina Soares APRN.RENEE 11/27/2024 3:43 PM Signed This is a [...] CATARACT EXTRACTION HX Right 10/26/2017 EGD W/O [facility] SPEC VARICIES INJ N/A 02/24/2022 LIG/TRNSXJ [...] 1 capsule by mouth once daily. Insulin [place], Disposable, (RELION PEN NEEDLES) 32 x 5/32 [...] swelling RESPIR (more content not included)... Normal [facility] CNPNon 11-14-2024 CNPN Telephone (FAMPWS) ROSA MYERS ([id number]) 1950 F Date Time Provider Department 11/14/24 AMADO JAMES [facility] During your visit today, we recorded the following information about you: Judie Paiz RN 11/14/2024 10:11 AM Signed Joseph MICHELE with [facility] calls to let provider know that [...] provider has questions. Judie Paiz, Maciel Badillo APRN.SIGNAL INTELLIGENCE ANALYST 11/14/2024 10:26 AM Signed Noted. Okay to continue with the plan. Maciel Busby APRN.[facility] Allergies As of Date: 11/14/2024 Noted Allergy [...] capsule by mouth once daily. - Insulin Sanford, Disposable, (RELION PEN NEEDLES) 32 x 5/32 [...] kidney disease, stage 4 (severe) (HCC) *04/15/2023 long-term current use of insulin (HCC) [Z79.4] 10/15/2023 Heart failure, unspecified (HCC) [I50.9] 04/15/2023 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*04/15/2023 Encounter Status:Closed by MACIEL BUSBY [facility] Tele[facility] (MALISSA) ROSA MYERS ([id number]) 1950 F Date Time Provider Department 10/20/24 AMADO JAMES During your visit today, we recorded the following information about you: Rajni Jiménez, RN 10/20/2024 12:14 PM Signed joseph with [facility] is calling to let pcp that they are re-certifying patient for nursing for help with wound care once weekly for the next 4 weeks. Allergies As of Date: 10/20/2024 Noted Allergy Reaction DIANA INHIBITORS 07/17/2005 NEOMYCIN 07/17/2005 Date Reviewed: 09/26/2024 Reviewed by: Yaz Christy MA - Fully Assessed Reason for Visit: Clinical Update [1735] Cmt: re-cert for hh Prescriptions as of 10/20/2024 - insulin detemir [...] capsule by mouth once daily. 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 [...] follws with wound center and Dr Erwin (director of purchasing). IZABEL Yi Mark D, MD 09/29/2024 10:53 [...] capsule by mouth once daily. - Insulin Sanford, Disposable, (RELION PEN NEEDLES) 32 x 5/32 [...] kidney disease, stage 4 (severe) (HCC) *04/15/2023 long-term current use of insulin (HCC) [Z79.4] 10/15/2023 Heart failure, unspecified (HCC) [I50.9] 04/15/2023 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*04/15/2023 Encounter Status:Closed by YAZ CHRISTY on 09/29/24 [facility] CNOVon 09-26-2024 CNOV Office Visit (FAMPWS ) ROSA MYERS ([id number]) 1950 F Date Time Provider Department 09/26/24 9:40 AM [facility] During your visit today, we recorded the [...] and did have to go to a [facility] and stay, but is now back home. [...] CATARACT EXTRACTION HX Right 10/26/2017 EGD W/O [facility] SPEC VARICIES INJ N/A 02/24/2022 LIG/TRNSXJ [...] 1 capsule by mouth once daily. Insulin Sanford, Disposable, (RELI (more content not included)... Normal [facility] [place] 09-15-2024 [facility] Telephone (FAMPWS) ROSA MYERS ([id number]) 1950 F Date Time Provider Department 09/15/24 AMADO JAMES During your visit today, we recorded the following information about you: Juana Castaneda RN 09/15/2024 10:42 AM Signed Juana calling from [facility] to report plan of care for patient and custodial will continue to visit patient 1 time a week for 2 weeks. Care Home will continue work with patient on wound care. No call back needed. RYNE Saldaña Jesse, APRN.CNP 09/15/2024 11:22 AM Signed Noted. Maciel Busby APRN.CNP Allergies As of Date: 09/15/2024 Noted Allergy Reaction DIANA INHIBITORS 07/17/2005 NEOMYCIN 07/17/2005 Date Reviewed: 08/28/2024 Reviewed by: Marguerite Rubio LPN - Fully Assessed Reason for Visit: Care Home Continued Plan of Care [Other] Prescriptions as [...] capsule by mouth once daily. 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 Date AM Lunch Supper 09/07 [phone] 09/08 [phone] 09/09 [phone] RYNE Saldaña Ashley, APRN.[facility] 09/11/2024 3:31 PM Signed Can you [...] 3 times a day. IZABEL Parish Ashley, APRN.SIGNAL INTELLIGENCE ANALYST 09/13/2024 10:52 AM Signed Can you please [...] with PCP in 1 week. Rufina Soares APRN.SIGNAL INTELLIGENCE ANALYST Example insulin titration schedule: Start taking 10 [...] capsule by mouth once daily. - Insulin Sanford, Disposable, (RELION PEN NEEDLES) 32 x 5/32 " ndle Use as directed with insulin pen. 250.00. 4 injections/day. On insulin. - Blood-Glucose Meter, Drum-type (ACCU-CHEK COMPACT PLUS CARE) kit Use as directed (more content not included)... Normal [facility] 09-08-2024 [facility] Telephone (COUMWS) ROSA MYERS ([id number]) 1950 F Date Time Provider Department 09/08/24 AMADO JAMES During your visit today, we recorded the following information about you: Rajni Jiménez RN 09/08/2024 11:07 AM Signed Isabel from [facility] is calling requesting an order for 1 [...] capsule by mouth once daily. - Insulin Sanford, Disposable, (RELION PEN NEEDLES) 32 x 5/32 [...] kidney disease, stage 4 (severe) (HCC) *04/15/2023 tank terminal gauger current use of insulin (HCC) [Z79.4] 10/15/2023 Heart failure, unspecified (HCC) [I50.9] 04/15/2023 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*04/15/2023 Encounter Status:Closed by MARIZA GRAHAM on 09/08/24 [facility] ([id number]) 1950 F Date Time Provider Department 09/04/24 [facility] During your visit today, we recorded the following information about you: Angelica Nassar LPN 09/04/2024 10:01 AM Signed Isabel social work supervisor from [facility] is asking for a verbal [...] capsule by mouth once daily. - Insulin Sanford, Disposable, (RELION PEN NEEDLES) 32 x 5/32 [...] kidney disease, stage 4 (severe) (HCC) *04/15/2023 long-term current use of insulin (HCC) [Z79.4] 10/15/2023 Heart failure, unspecified (HCC) [I50.9] 04/15/2023 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*04/15/2023 Encounter Status:Closed by MARIZA GRAHAM on 09/04/24 [facility]A MY[facility] ([id number]) 1950 F Date Time Provider Department 09/01/24 [...] if you want changes. IZABEL Lewis Ashley, APRN.SIGNAL INTELLIGENCE ANALYST 09/01/2024 2:53 PM Signed Can you please [...] capsule by mouth once daily. - Insulin Sanford, Disposable, (RELION PEN NEEDLES) 32 x 5/32 [...] 10/15/2023 Anemi (more content not included)... Normal [facility] CBC W Auto Differential pane l (Bld)on 08-31-2024 Basophils (Bld) [#/Vol] 0.06 10*3/uL Normal <0.11 [facility] Comment on above: Order Comment: Speci men Type: BLOOD SPECIMENOrdering Facility: [facility] Address: [address] [place] [address] Performed By: #### 5 7021-8 ####[facility] LABCLIA [id number] [facility] [place] [address] [place] Basophils/100 WBC (Bld) 0.8 % Normal [facility] Comment on above: Order Comment: Speci men Type: BLOOD SPECIMENOrdering Facility: [facility] Address: [address] [place] [address] Performed By: #### 5 7021-8 ####[facility] LABCLIA [id number] [place] [address] [place] Differential cell count method Nom (Bld) Auto Normal [facility] Comment on above: Order Comment: Speci men Type: BLOOD SPECIMENOrdering Facility: [facility] Address: [address] [place] [address] Performed By: #### 5 7021-8 ####[facility] LABCLIA [id number] [place] [address] [place] Eosinophils (Bld) [#/Vol] 0.20 10*3/uL Normal <0.46 [facility] Comment on above: Order Comment: Speci men Type: BLOOD SPECIMENOrdering Facility: [facility] Address: [address] [place] [address] Performed By: #### 5 7021-8 ####[facility] LABCLIA [id number] [place] [address] [place] Eosinophils/100 WBC (Bld) 2.6 % Normal [facility] Comment on above: Order Comment: Speci men Type: BLOOD SPECIMENOrdering Facility: [facility] Address: [address] [place] [address] Performed By: #### 5 7021-8 ####[facility] LABCLIA [id number] [place] [address] [place] Erythrocyte distribution width (RBC) [Ratio] 18.2 % High 11.5-15.0 [facility] Comment on above: Order Comment: Speci men Type: BLOOD SPECIMENOrdering Facility: [facility] Address: [address] [place] [address] Performed By: #### 5 7021-8 ####[facility] LABCLIA [id number] [place] [address] [place] Hematocrit (Bld) [Volume fraction] 28.2 % Low 36.0-46.0 [facility] Comment on above: Order Comment: Speci men Type: BLOOD SPECIMENOrdering Facility: [facility] Address: [address] [place] [address] Performed By: #### 5 7021-8 ####[facility] LABCLIA [id number] [place] [address] [place] Hemoglobin (Bld) [Mass/Vol] 8.3 g/dL Low 11.5-15.5 [facility] Comment on above: Order Comment: Speci men Type: BLOOD SPECIMENOrdering Facility: [facility] Address: [address] [place] [address] Performed By: #### 5 7021-8 ####[facility] LABIA [id number] [place] [address] [place] Immature granulocytes (Bld) [#/Vol] 10*3/uL Normal <0.10 [facility] Comment on above: Order Comment: Speci men Type: BLOOD SPECIMENOrdering Facility: [facility] Address: [address] [place] [address] Performed By: #### 5 7021-8 ####[facility] LABIA [id number] [place] [address] [place] Immature granulocytes/100 WBC (Bld) 0.3 % Normal [facility] Comment on above: Order Comment: Speci men Type: BLOOD SPECIMENOrdering Facility: [facility] Address: [address] [place] [address] Performed By: #### 5 7021-8 ####[facility] LABCLIA [id number] [place] [address] [place] Lymphocytes (Bld) [#/Vol] 1.12 10*3/uL Normal 1.00-4.00 [facility] Comment on above: Order Comment: Speci men Type: BLOOD SPECIMENOrdering Facility: [facility] Address: [address] [place] [address] Performed By: #### 5 7021-8 ####[facility] LABIA [id number] [place] [address] [place] Lymphocytes/100 WBC (Bld) 14.5 % Normal [facility] Comment on above: Order Comment: Speci men Type: BLOOD SPECIMENOrdering Facility: [facility] Address: [address] [place] [address] Performed By: #### 5 7021-8 ####[facility] [id number] [place] [address] [place] MCH (RBC) [Entitic mass] 25.2 pg Low 26.0-34.0 [facility] Comment on above: Order Comment: Speci men Type: BLOOD SPECIMENOrdering Facility: [facility] Address: [address] [place] [address] Performed By: #### 5 7021-8 ####[facility] LABIA [id number] [place] [address] [place] MCHC (RBC) [Mass/Vol] 29.4 g/dL Low 30.5-36.0 [facility] Comment on above: Order Comment: Speci men Type: BLOOD SPECIMENOrdering Facility: [facility] Address: [address] [place] [address] Performed By: #### 5 7021-8 ####[facility] LABIA [id number] [place] [address] [place] MCV (RBC) [Entitic vol] 85.7 fL Normal 80.0-100.0 C [facility] Comment on above: Order Comment: Speci men Type: BLOOD SPECIMENOrdering Facility: [facility] Address: [address] [place] [address] Performed By: #### 5 7021-8 ####[facility] LABCLIA [id number] [place] [address] [place] Monocytes (Bld) [#/Vol] 0.55 10*3/uL Normal <0.87 [facility] Comment on above: Order Comment: Speci men Type: BLOOD SPECIMENOrdering Facility: [facility] Address: [address] [place] [address] Performed By: #### 5 7021-8 ####[facility] LABCLIA [id number] [place] [address] [place] Monocytes/100 WBC (Bld) 7.1 % Normal [facility] Comment on above: Order Comment: Speci men Type: BLOOD SPECIMENOrdering Facility: [facility] Address: [address] [place] [address] Performed By: #### 5 7021-8 ####[facility] LABCLIA [id number] [place] [address] [place] Neutrophils (Bld) [#/Vol] 5.77 10*3/uL Normal 1.45-7.50 [facility] Comment on above: Order Comment: Speci men Type: BLOOD SPECIMENOrdering Facility: [facility] Address: [address] [place] [address] Performed By: #### 5 7021-8 ####[facility] LABCLIA [id number] [place] [address] [place] Neutrophils/100 WBC (Bld) 74.7 % Normal [facility] Comment on above: Order Comment: Speci men Type: BLOOD SPECIMENOrdering Facility: [facility] Address: [address] [place] [address] Performed By: #### 5 7021-8 ####[facility] LABCLIA [id number] [place] [address] [place] Nucleated RBC (Bld) [#/Vol] 10*3/uL Normal <0.01 [facility] Comment on above: Order Comment: Speci men Type: BLOOD SPECIMENOrdering Facility: [facility] Address: [address] [place] [address] Performed By: #### 5 7021-8 ####[facility] LABCLIA [id number] [place] [address] [place] Nucleated RBC/100 WBC (Bld) [Ratio] 0.0 /100 WBC Normal [facility] Comment on above: Order Comment: Speci men Type: BLOOD SPECIMENOrdering Facility: [facility] Address: [address] [place] [address] Performed By: #### 5 7021-8 ####[facility] LABIA [id number] [place] [address] [place] Platelet mean volume (Bld) [Entitic vol] 11.3 fL Normal 9.0-12.7 [facility] Comment on above: Order Comment: Speci men Type: BLOOD SPECIMENOrdering Facility: [facility] Address: [address] [place] [address] Performed By: #### 5 7021-8 ####[facility] LABIA [id number] [place] [address] [place] Platelets (Bld) [#/Vol] 246 10*3/uL Normal 150-400 [facility] Comment on above: Order Comment: Speci men Type: BLOOD SPECIMENOrdering Facility: [facility] Address: [address] [place] [address] Performed By: #### 5 7021-8 ####[facility] LABIA [id number] [place] [address] [place] RBC (Bld) [#/Vol] 3.29 10*6/uL Low 3.90-5.20 [facility] Comment on above: Order Comment: Speci men Type: BLOOD SPECIMENOrdering Facility: [facility] Address: [address] [place] [address] Performed By: #### 5 7021-8 ####[facility] LABCLIA [id number] [place] [address] [place] WBC (Bld) [#/Vol] 7.72 10*3/uL Normal 3.70-11.00 [facility] Comment on above: Order Comment: Speci men Type: BLOOD SPECIMENOrdering Facility: [facility] Address: [address] [place] [address] Performed By: #### 5 7021-8 ####[facility] LABCLIA [id number] [place] [address] [place] Comprehensive metabolic 2000 panelon 08-31-2024 Albumin [Mass/Vol] 3.7 g/dL Low 3.9-4.9 [facility] Comment on above: Order Comment: Speci men Type: BLOOD SPECIMENOrdering Facility: [facility] Address: [address] [place] [address] Performed By: #### 2 4323-8, 09761-5 ####[facility] LABIA [id number] [place] [address] [place] ALP [Catalytic activity/Vol] 76 U/L Normal 34-123 [facility] Comment on above: Order Comment: Speci men Type: BLOOD SPECIMENOrdering Facility: [facility] Address: [address] [place] [address] Performed By: #### 2 4323-8, 32868-0 ####[facility] LABIA [id number] [place] [address] [place] ALT [Catalytic activity/Vol] 10 U/L Normal 7-38 [facility] Comment on above: Order Comment: Speci men Type: BLOOD SPECIMENOrdering Facility: [facility] Address: [address] [place] [address] Performed By: #### 2 4323-8, 08594-8 ####[facility] LABCLIA [id number] [place] [address] [place] Anion gap [Moles/Vol] 15 mmol/L Normal 8-15 [facility] Comment on above: Order Comment: Speci men Type: BLOOD SPECIMENOrdering Facility: [facility] Address: [address] [place] [address] Performed By: #### 2 4323-8, 80458-2 ####[facility] LABCLIA [id number] [place] [address] [place] AST [Catalytic activity/Vol] 11 U/L Low 13-35 [facility] Comment on above: Order Comment: Speci men Type: BLOOD SPECIMENOrdering Facility: [facility] Address: [address] [place] [address] Performed By: #### 2 4323-8, 43661-1 ####[facility] LABCLIA [id number] [place] [address] [place] Bilirubin [Mass/Vol] 0.4 mg/dL Normal 0.2-1.3 [facility] Comment on above: Order Comment: Speci men Type: BLOOD SPECIMENOrdering Facility: [facility] Address: [address] [place] [address] Performed By: #### 2 4323-8, 96982-6 ####[facility] LABCLIA [id number] [place] [address] [place] Calcium [Mass/Vol] 9.4 mg/dL Normal 8.5-10.2 [facility] Comment on above: Order Comment: Speci men Type: BLOOD SPECIMENOrdering Facility: [facility] Address: [address] [place] [address] Performed By: #### 2 4323-8, 08807-2 ####[facility] LABCLIA [id number] [place] [address] [place] Chloride [Moles/Vol] 100 mmol/L Normal 98-107 [facility] Comment on above: Order Comment: Speci men Type: BLOOD SPECIMENOrdering Facility: [facility] Address: [address] [place] [address] Performed By: #### 2 4323-8, 20983-3 ####[facility] LABCLIA [id number] [place] [address] [place] CO2 [Moles/Vol] 22 mmol/L Normal 22-30 [facility] Comment on above: Order Comment: Speci men Type: BLOOD SPECIMENOrdering Facility: [facility] Address: [address] [place] [address] Performed By: #### 2 4323-8, 29819-8 ####[facility] LABCLIA [id number] [place] [address] [place] Creatinine [Mass/Vol] 1.79 mg/dL High 0.58-0.96 [facility] Comment on above: Order Comment: Speci men Type: BLOOD SPECIMENOrdering Facility: [facility] Address: [address] [place] [address] Performed By: #### 2 4323-8, 35597-4 ####[facility] LABIA [id number] [place] [address] [place] Creatinine and Glomerular filtration rate.predicted panel (S/P/Bld) 29 mL/min/1.73m??? Low >=60 [facility] Comment on above: Order Comment: Speci men Type: BLOOD SPECIMENOrdering Facility: [facility] Address: [address] [place] [address] Result Comment: Kathrine mated Glomerular Filtration Rate [...] actual GFR. Performed By: #### 2 4323-8, 19464-4 ####[facility] LABCLIA [id number] [place] [id number] [place] Glucose [Mass/Vol] 271 mg/dL High 74-99 [facility] Comment on above: Order Comment: Speci men Type: BLOOD SPECIMENOrdering Facility: [facility] Address: [address] [place] [address] Result Comment: The [place] Diabetes Association (ADA) provides guidance for cutoff [...] Standards of Medical Care in Diabetes 2016, [place] Diabetes Association. Diabetes Care. 2016.39(Suppl 1). Performed By: #### 2 4323-8, 51783-5 ####[facility] LABIA [id number] [place] [address] [place] Potassium [Moles/Vol] 4.4 mmol/L Normal 3.7-5.1 [facility] Comment on above: Order Comment: Speci men Type: BLOOD SPECIMENOrdering Facility: [facility] Address: [address] [place] [address] Performed By: #### 2 4323-8, 71910-0 ####[facility] LABIA [id number] [place] [id number] [place] Protein [Mass/Vol] 6.9 g/dL Normal 6.3-8.0 [facility] Comment on above: Order Comment: Speci men Type: BLOOD SPECIMENOrdering Facility: [facility] Address: [address] [place] [address] Performed By: #### 2 4323-8, 28633-5 ####[facility] LABCLIA [id number] [address] [address] [place] Sodium [Moles/Vol] 137 mmol/L Normal 136-144 [facility] Comment on above: Order Comment: Speci men Type: BLOOD SPECIMENOrdering Facility: [facility] Address: [address] [place] [address] Performed By: #### 2 4323-8, 96091-4 ####[facility] LABIA [id number] [place] [address] [place] Urea nitrogen [Mass/Vol] 28 mg/dL High 7-21 [facility] Comment on above: Order Comment: Speci men Type: BLOOD SPECIMENOrdering Facility: [facility] Address: [address] [place] [address] Performed By: #### 2 4323-8, 81668-5 ####[facility] LABIA [id number] [place] [address] [place] HbA1c (Bld)on 08-31-2024 Average glucose Estimated from glycated hemoglobin (Bld) [Mass/Vol] 111 mg/dL Normal [facility] Comment on above: Order Comment: Speci men Type: BLOOD SPECIMENOrdering Facility: [facility] Address: [address] [place] [address] Result Comment: eAG: (Estimated average glucose) is a calculated value from HgbA1c and is traveling representative of the average blood glucose level in the last 2-3 month period. Performed By: #### 5 5454-3 ####[facility] [id number] [place] [address] [place] HbA1c (Bld) [Mass fraction] 5.5 % Normal 4.3-5.6 [facility] Comment on above: Order Comment: Speci men Type: BLOOD SPECIMENOrdering Facility: [facility] Address: [address] [place], [place] [address] Result Comment: Amer ican Diabetes Association guidelines indicate that patients with HgbA1c in the range 5.7-6.4% are at increased risk for development of diabetes, and intervention by lifestyle modification may be beneficial. HgbA1c greater or equal to 6.5% is considered diagnostic of diabetes. Performed By: #### 5 5454-3 ####[facility] LABCLIA [id number] [place] [address] [place] Lipid 1996 panelon 4 Cholesterol [Mass/Vol] 116 mg/dL Normal <200 [facility] Comment on above: Order Comment: Maxim davies Type: BLOOD SPECIMENOrdering Facility: [facility] Address: [address] [place] [address] Result Comment: <200 mg/dL, Desirable 200-239 mg/dL, Borderline high >239 mg/dL, High Performed By: #### 2 4323-8, 69492-9 ####[facility] LABCLIA [id number] [address] [place] Cholesterol in HDL [Mass/Vol] 35 mg/dL Low >39 [facility] Comment on above: Order Comment: Maxim davies Type: BLOOD SPECIMENOrdering Facility: [facility] Address: [address] [place] [address] Result Comment: 40-5 9 mg/dL, Acceptable >59 mg/dL, High: Negative risk factor for coronary heart disease <40 mg/dL, Low: Positive risk factor for coronary heart disease Performed By: #### 2 4323-8, 61900-6 ####[facility] LABCLIA [id number] [address] [place] Cholesterol in LDL [Mass/Vol] 54 mg/dL Normal <100 [facility] Comment on above: Order Comment: Maxim davies Type: BLOOD SPECIMENOrdering Facility: [facility] Address: [address] [place] [address] Result Comment: <100 mg/dL, Optimal 100-129 mg/dL, Near optimal/above optimal 130-159 mg/dL, Borderline high 160-189 mg/dL, High >189 mg/dL, Very high Secondary prevention optimal LDL Cholesterol levels are recommended to be < 70 mg/dL Performed By: #### 2 4323-8, 51765-7 ####[facility] LABCLIA [id number] [place] [address] [place] Cholesterol in LDL/Cholesterol in HDL [Mass ratio] 1.54 {ratio} Normal <2.54 [facility] Comment on above: Order Comment: Speci men Type: BLOOD SPECIMENOrdering Facility: [facility] Address: [address] [place] [address] Result Comment: Ermias sheffield: 1. National Cholesterol Education Program ATP III Guideline At-A-Glance Quick Desk Reference: National Heart, Lung, and Blood [place]. National Institutes of Health. 2001: NIH Publication No. 01-3305. 2. An International Atherosclerosis Society position paper: global recommendations for the management of dyslipidemia: executive summary, Atherosclerosis. 2014: 232(2):410-413. Performed By: #### 2 4323-8, 49839-1 ####[facility] LABCLIA [id number] [place] [address] [place] Cholesterol in VLDL [Mass/Vol] 27 mg/dL Normal <30 [facility] Comment on above: Order Comment: Trevori men Type: BLOOD SPECIMENOrdering Facility: [facility] Address: [address] [place] [address] Performed By: #### 2 4323-8, 03001-2 ####[facility] LABCLIA [id number] [place] [id number] [place] Cholesterol non HDL [Mass/Vol] 81 mg/dL Normal <130 [facility] Comment on above: Order Comment: Trevori men Type: BLOOD SPECIMENOrdering Facility: [facility] Address: [address] [place] [address] Result Comment: <130 mg/dL, Optimal 130-159 mg/dL, Near optimal/above optimal 160-189 mg/dL, Borderline high 190-219 mg/dL, High >219 mg/dL, Very high Secondary prevention optimal non HDL Cholesterol levels are recommended to be <100 mg/dL Performed By: #### 2 4323-8, 58203-7 ####[facility] LABCLIA [id number] [address] OF [facility] Cholesterol.total/Antonia sterol in HDL [Mass ratio] 3.31 {ratio} Normal <5.10 [facility] Comment on above: Order Comment: Speci men Type: BLOOD SPECIMENOrdering Facility: [facility] Address: [address] [place] [address] Performed By: #### 2 4323-8, 51235-3 ####[facility] LABIA [id number] [address] FASTING TIME 12 hrs Normal [facility] Comment on above: Order Comment: Speci men Type: BLOOD SPECIMENOrdering Facility: [facility] Address: [address] [place] [address] Performed By: #### 2 4323-8, 97848-9 ####[facility] LABIA [id number] [address] STATES [facility] Triglyceride [Mass/Vol] 133 mg/dL Normal <150 C [facility] Comment on above: Order Comment: Speci men Type: BLOOD SPECIMENOrdering Facility: [facility] Address: [address] [place] [address] Result Comment: <150 mg/dL, Normal 150-199 mg/dL, Borderline high 200-499 mg/dL, High >499 mg/dL, Very high Performed By: #### 2 4323-8, 48686-0 ####[facility] LABIA [id number] [place] [address] [place] 08-30-2024 CNPN Telephone (FAMPWS) ROSA MYERS ([id number]) 1950 F Date Time Provider Department 08/30/24 AMADO JAMES During your visit today, we recorded the following information about you: Aimee French RN 08/30/2024 1:38 PM Signed RICKY Gardner @ [facility] calling with plan of care. OT will see patient 1 x/weekf for one week, 2 x/week for two weeks, and 1x/week for one week for safety and strength training needed for ADLs. If agree, no call back needed. RYNE Duval Ashley, APRN.RENEE 08/31/2024 7:28 AM Signed Noted, thank you Rufina Soares APRN.SIGNAL INTELLIGENCE ANALYST Allergies As of Date: 08/30/2024 Noted Allergy [...] capsule by mouth once daily. - Insulin Sanford, Disposable, (RELION PEN NEEDLES) 32 x 5/32 [...] kidney disease, stage 4 (severe) (HCC) *04/15/2023 tank terminal gauger current use of insulin (HCC) [Z79.4] 10/15/2023 Heart failure, unspecified (HCC) [I50.9] 04/15/2023 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*04/15/2023 Encounter Status:Closed by RUFINA SOARES on 08/31/24 [facility] 08-29-2024 CNPN Telephone (FAMWS) ROSA MYERS ([id number]) 1950 F Date Time Provider Department 08/29/24 AMADO JAMES [facility] During your visit today, we recorded the following information about you: Juana Castaneda RN 08/29/2024 11:01 AM Signed Rufina PT calling from [facility] to report plan of care for patient [...] capsule by mouth once daily. - Insulin Sanford, Disposable, (RELION PEN NEEDLES) 32 x 5/32 [...] kidney disease, stage 4 (severe) (HCC) *04/15/2023 tank terminal gauger current use of insulin (HCC) [Z79.4] 10/15/2023 Heart failure, unspecified (HCC) [I50.9] 04/15/2023 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*04/15/2023 Encounter Status:Closed by AMADO JAMES on 08/29/24 [facility] Manuelito 08-28-2024 CNOV Office Visit (CLYDEPWS ) ROSA MYERS ([id number]) 1950 F Date Time Provider Department 08/28/24 [...] 10 units and Notify Provider Rufina Soares APRN.SIGNAL INTELLIGENCE ANALYST 08/28/2024 4:06 PM Signed This is a 74 year old female who presents today with: Patient presents with: Follow Up: Hosptial follow up hupoglycemia HISTORY OF PRESENT ILLNESS: Rosa Myers is a 74 year old female. Patient presents with: Follow Up: Hosptial follow up hupoglycemia HOSPITAL/ER FOLLOW UP: Reason for visit: Altered level of consciousness transported by EMS Which facility: [facility] Date of visit: 08/19/2024-08/22/2024 Diagnosis: Hypoglycemia, hypothermia, chronic anemia, CHF, CKD stage IV Testing done: Blood sugar on ER arrival was 41. Brain CT showed diffuse involutional changes. A remote lacunar infarct in the left internal capsule and borck radiator. Extensive carotid and vertebral calcifications. No [...] History of diabetic ulcers/wounds Follows with cardiology, [facility], . Living with , son lives in [facility] on same property. PAST MEDICAL HISTORY: PAST MEDICAL HISTORY Diagnosis Date Allergic rhinitis due to other allergen Essential hypertension, benign Type II or unspecified type diabetes mellitus without mention of complication, uncontrolled PAST SURGICAL HISTORY Procedure Laterality Date CATARACT EXTRACTION HX Right 10/26/2017 EGD W/O [facility] SPEC VARICIES INJ N/A 02/24/2022 LIG/TRNSXJ [...] NEEDLE) 31 (more content not included)... Normal [facility] ([id number]) 1950 F Date Time Provider Department 08/25/24 AMADO JAMES [facility] During your visit today, we recorded [...] capsule by mouth once daily. - Insulin Sanford, Disposable, (RELION PEN NEEDLES) 32 x 5/32 [...] kidney disease, stage 4 (severe) (HCC) *04/15/2023 long-term current use of insulin (HCC) [Z79.4] 10/15/2023 Heart failure, unspecified ([facility]) [I50.9] 04/15/2023 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*04/15/2023 Encounter Status:Closed by MARIZA GRAHAM on 08/25/24 [facility] 08-22-2024 [facility] MY[facility] ([id number]) 1950 F Date Time Provider Department 08/22/24 MAADO JAMES [facility] During your visit today, we recorded the following information about you: Hyacinth Greer LPN 08/22/2024 9:39 AM Vesna Mclean with [facility] is calling to report that pt is currently in [facility] for hypoglycemia. Pt may get discharged today or tomorrow and possibly with 2L of O2. Pt has orders for custodial, PT, OT, and SW. Vinay is asking for VO from provider that provider will follow pt while in HH. IZABEL Amaral Jesse, APRN.RENEE 08/22/2024 2:26 PM Signed Please let Vniay know that Dr. James is out of [...] capsule by mouth once daily. - Insulin Sanford, Disposable, (RELION PEN NEEDLES) 32 x 5/32 [...] kidney disease, stage 4 (severe) (HCC) *04/15/2023 long-term current use of insulin (HCC) [Z79.4] 10/15/2023 Heart failure, unspecified (HCC) [I50.9] 04/15/2023 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*04/15/2023 Encounter Status:Closed by CHUYITA FONTANA on 08/22/24 [facility] Telephone (FAMWS) ROSA MYERS ([id number]) 1950 F Date Time Provider Department 08/18/24 [facility] During your visit today, we recorded the following information about you: Diana Whittington LPN 08/18/2024 3:33 PM Signed Will from [facility] calling asking if PCP would follow patient and sign orders for PT/OT? Patient was in [facility]. Please advise Amado James MD 08/18/2024 4:39 PM Signed I will follow and sign orders as requested MD Mackenzie Nava Beth, LPN 08/18/2024 4:43 PM Signed Phoned [facility] order line and left detailed message with [...] capsule by mouth once daily. - Insulin Sanford, Disposable, (RELION PEN NEEDLES) 32 x 5/32 [...] kidney disease, stage 4 (severe) (HCC) *04/15/2023 tank terminal gauger current use of insulin (HCC) [Z79.4] 10/15/2023 Heart failure, unspecified (HCC) [I50.9] 04/15/2023 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*04/15/2023 Encounter Status:Closed by DIANA WHITTINGTON on 08/18/24 [facility]20[facility] ROS[facility] MY[facility] ([id number]) 1950 F Date Time Provider Department 07/13/24 AMADO JAEMS [facility] During your visit today, we recorded the following information about you: Laura Palomares LPN 07/13/2024 3:53 PM Signed Dolly pharmacist from [employer] calling states received script for Levemir for [...] capsule by mouth once daily. - Insulin Sanford, Disposable, (RELION PEN NEEDLES) 32 x 5/32 [...] kidney disease, stage 4 (severe) (HCC) *04/15/2023 long-term current use of insulin (HCC) [Z79.4] 10/15/2023 [...] Encounter Status:Closed by ASTON FELDER on 07/13/24 [facility] CNOVon 07-11-2024 CNOV Office Visit (FAMPWS ) ROSA MYERS ([id number]) 1950 F Date Time Provider Department 07/11/24 4:00 PM [facility] During your visit today, we recorded [...] as PCP - General Dr. Stallings or ENGRAVER [employer]PERPL[facility] Provider - [facility]/Cardiology. Dr. Erwin [...] with exertion. Does follow with Cardiology at [facility], has appt tomorrow. On current regimen of Diovan 160 mg once daily and Coreg 12.5 mg bid. Lipid/CAD - Taking Plavix 75 mg once daily, Lipitor 40 mg once daily and ASA 81 mg daily. Follows with [facility]. DM - Checks sugars at home once daily with FBS of 90 this morning. Generally FBS is 130-160. Has been having increased episodes of lows (5) over the past month, seems to correlate with increased use of abx due to her wounds. Is following with Dr. Erwin at [facility] and [facility] for wound on b/l feet. [...] daily. E (more content not included)... Normal [facility] CNPNon [facility] (FAMAppvanceWS) ROSA MYERS ([id number]) 1950 F Date Time Provider Department 06/16/24 [facility] During your visit today, we recorded the following information about you: Aston Felder, RYNE 06/16/2024 11:39 AM Signed Patricia [facility] called in and wanted Pts last OV note faxed over. She states the only diagnosis they have is foot ulcer, and she wanted more diagnoses to put down. Faxed last OV note to fax # [phone]. Allergies As of Date: 06/16/2024 Noted Allergy [...] capsule by mouth once daily. - Insulin Sanford, Disposable, (RELION PEN NEEDLES) 32 x 5/32 [...] kidney disease, stage 4 (severe) (HCC) *04/15/2023 long-term current use of insulin (HCC) [Z79.4] 10/15/2023 Heart failure, unspecified (HCC) [I50.9] 04/15/2023 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*04/15/2023 Encounter Status:Closed by ASTON FELDER on 06/16/24 [facility] Lamont 06-02-2024 CNPN Telephone (FAMPWS) ROSA MYERS ([id number]) 1950 F Date Time Provider Department 06/02/24 AMADO JAMES During your visit today, we recorded the following information about you: Aga Castro RN 06/02/2024 2:35 PM Signed Joseph with [facility] calling and requesting most recent office visit for patient be faxed to them at [phone] for continuity of care for Home Health [...] capsule by mouth once daily. - Insulin Sanford, Disposable, (RELION PEN NEEDLES) 32 x 5/32 [...] kidney disease, stage 4 (severe) (HCC) *04/15/2023 long-term current use of insulin ([facility]) [Z79.4] 10/15/2023 Heart failure, unspecified (HCC) [I50.9] 04/15/2023 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*04/15/2023 Encounter Status:Closed by AGA CASTRO on 06/02/24 [facility] CNOVon 05-06-2024 CNOV Office Visit (FAMPWS ) ROSA MYERS ([id number]) 1950 F Date Time Provider Department 05/06/24 8:40 AM [facility] During your visit today, we recorded the [...] 1 capsule by mouth once daily. Insulin Sanford, Disposable, (RELION PEN NEEDLES) 32 x 5/32 [...] done Shingrix (more content not included)... Normal [facility]-18-2024 [facility] (FAMWS) ROSA MYERS ([id number]) 1950 F Date Time Provider Department 04/18/24 [facility] During your visit today, we recorded [...] to call again later. Mariza Graham MA Diana Whittington LPN 04/19/2024 9:05 AM Signed Patient returned [...] capsule by mouth once daily. - Insulin Sanford, Disposable, (RELION PEN NEEDLES) 32 x 5/32 [...] kidney disease, stage 4 (severe) (HCC) *04/15/2023 tank terminal gauger current use of insulin (HCC) [Z79.4] 10/15/2023 Heart failure, unspecified (HCC) [I50.9] 04/15/2023 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*04/15/2023 Encounter Status:Closed by DIANA WHITTINGTON on 04/19/24 [facility] CBC panel Auto (Bld)on 04-15 Erythrocyte distribution width (RBC) [Ratio] 15.9 % High 11.5-15.0 [facility] Comment on above: Order Comment: Speci men Type: BLOOD SPECIMENOrdering Facility: [facility] Address: [address] [place] [address] Performed By: #### 5 8410-2 ####[facility] LABCLIA [id number] [place] [address] [place] Hematocrit (Bld) [Volume fraction] 36.0 % Normal 36.0-46.0 [facility] Comment on above: Order Comment: Speci men Type: BLOOD SPECIMENOrdering Facility: [facility] Address: [address] [place] [address] Performed By: #### 5 8410-2 ####[facility] LABCLIA [id number] [place] [address] [place] Hemoglobin (Bld) [Mass/Vol] 10.9 g/dL Low 11.5-15.5 [facility] Comment on above: Order Comment: Speci men Type: BLOOD SPECIMENOrdering Facility: [facility] Address: [address] [place] [address] Performed By: #### 5 8410-2 ####[facility] LABIA [id number] [place] [address] [place] MCH (RBC) [Entitic mass] 26.8 pg Normal 26.0-34.0 [facility] Comment on above: Order Comment: Speci men Type: BLOOD SPECIMENOrdering Facility: [facility] Address: [address] [place] [address] Performed By: #### 5 8410-2 ####[facility] LABCLIA [id number] [place] [address] [place] MCHC (RBC) [Mass/Vol] 30.3 g/dL Low 30.5-36.0 [facility] Comment on above: Order Comment: Speci men Type: BLOOD SPECIMENOrdering Facility: [facility] Address: [address] [place] [address] Performed By: #### 5 8410-2 ####[facility] LABIA [id number] [place] [address] [place] MCV (RBC) [Entitic vol] 88.7 fL Normal 80.0-100.0 C [facility] Comment on above: Order Comment: Speci men Type: BLOOD SPECIMENOrdering Facility: [facility] Address: [address] [place] [address] Performed By: #### 5 8410-2 ####[facility] [id number] [place] [address] [place] Nucleated RBC (Bld) [#/Vol] 10*3/uL Normal <0.01 [facility] Comment on above: Order Comment: Speci men Type: BLOOD SPECIMENOrdering Facility: [facility] Address: [address] [place] [address] Performed By: #### 5 8410-2 ####[facility] [id number] [place] [address] [place] Platelet mean volume (Bld) [Entitic vol] 11.9 fL Normal 9.0-12.7 [facility] Comment on above: Order Comment: Speci men Type: BLOOD SPECIMENOrdering Facility: [facility] Address: [address] [place] [address] Performed By: #### 5 8410-2 ####[facility] LABIA [id number] [place] [address] [place] Platelets (Bld) [#/Vol] 200 10*3/uL Normal 150-400 [facility] Comment on above: Order Comment: Speci men Type: BLOOD SPECIMENOrdering Facility: [facility] Address: [address] [place] [address] Performed By: #### 5 8410-2 ####[facility] LABCLIA [id number] [address] [address] [place] RBC (Bld) [#/Vol] 4.06 10*6/uL Normal 3.90-5.20 [facility] Comment on above: Order Comment: Speci men Type: BLOOD SPECIMENOrdering Facility: [facility] Address: [address] [place] [address] Performed By: #### 5 8410-2 ####[facility] LABCLIA [id number] [place] [id number] [place] WBC (Bld) [#/Vol] 8.10 10*3/uL Normal 3.70-11.00 [facility] Comment on above: Order Comment: Speci men Type: BLOOD SPECIMENOrdering Facility: [facility] Address: [address] [place] [address] Performed By: #### 5 8410-2 ####[facility] LABCLIA [id number] [place] [address] [place] Comprehensive metabolic 2000 panelon 04-15-2024 Albumin [Mass/Vol] 4.1 g/dL Normal 3.9-4.9 [facility] Comment on above: Order Comment: Speci men Type: BLOOD SPECIMENOrdering Facility: [facility] Address: [address] [place] [address] Performed By: #### 2 4323-8, 60634-5 ####[facility] LABCLIA [id number] [place] [id number] [place] ALP [Catalytic activity/Vol] 102 U/L Normal 34-123 [facility] Comment on above: Order Comment: Speci men Type: BLOOD SPECIMENOrdering Facility: [facility] Address: [address] [place] [address] Performed By: #### 2 4323-8, 24566-6 ####[facility] LABCLIA [id number] [place] [address] [place] ALT [Catalytic activity/Vol] 17 U/L Normal 7-38 [facility] Comment on above: Order Comment: Speci men Type: BLOOD SPECIMENOrdering Facility: [facility] Address: [address] [place] [address] Performed By: #### 2 4323-8, 65260-9 ####[facility] LABCLIA [id number] [place] [address] [place] Anion gap [Moles/Vol] 15 mmol/L Normal 8-15 [facility] Comment on above: Order Comment: Speci men Type: BLOOD SPECIMENOrdering Facility: [facility] Address: [address] [place] [address] Performed By: #### 2 4323-8, 88355-6 ####[facility] LABCLIA [id number] [place] [address] [place] AST [Catalytic activity/Vol] 17 U/L Normal 13-35 [facility] Comment on above: Order Comment: Speci men Type: BLOOD SPECIMENOrdering Facility: [facility] Address: [address] [place] [address] Performed By: #### 2 4323-8, 81803-3 ####[facility] LABCLIA [id number] [place] [address] [place] Bilirubin [Mass/Vol] 0.6 mg/dL Normal 0.2-1.3 [facility] Comment on above: Order Comment: Speci men Type: BLOOD SPECIMENOrdering Facility: [facility] Address: [address] [place] [address] Performed By: #### 2 4323-8, 33759-0 ####[facility] LABCLIA [id number] [place] [address] [place] Calcium [Mass/Vol] 9.0 mg/dL Normal 8.5-10.2 [facility] Comment on above: Order Comment: Speci men Type: BLOOD SPECIMENOrdering Facility: [facility] Address: [address] [place], [place] [address] Performed By: #### 2 4323-8, 43881-4 ####[facility] LABCLIA [id number] [place] [id number] [place] Chloride [Moles/Vol] 104 mmol/L Normal 98-107 [facility] Comment on above: Order Comment: Speci men Type: BLOOD SPECIMENOrdering Facility: [facility] Address: [address] [place] [address] Performed By: #### 2 4323-8, 56870-9 ####[facility] LABCLIA [id number] [place] [address] [place] CO2 [Moles/Vol] 22 mmol/L Normal 22-30 [facility] Comment on above: Order Comment: Speci men Type: BLOOD SPECIMENOrdering Facility: [facility] Address: [address] [place] [address] Performed By: #### 2 4323-8, 88406-0 ####[facility] LABCLIA [id number] [place] [address] [place] Creatinine [Mass/Vol] 1.66 mg/dL High 0.58-0.96 [facility] Comment on above: Order Comment: Speci men Type: BLOOD SPECIMENOrdering Facility: [facility] Address: [address] [place] [address] Performed By: #### 2 4323-8, 03545-7 ####[facility] LABCLIA [id number] [place] [address] [place] Creatinine and Glomerular filtration rate.predicted panel (S/P/Bld) 32 mL/min/1.73m??? Low >=60 [facility] Comment on above: Order Comment: Speci men Type: BLOOD SPECIMENOrdering Facility: [facility] Address: [address] [place] [address] Result Comment: Kathrine mated Glomerular Filtration Rate [...] actual GFR. Performed By: #### 2 4323-8, 76017-4 ####[facility] LABIA [id number] [place] [address] [place] Glucose [Mass/Vol] 228 mg/dL High 74-99 [facility] Comment on above: Order Comment: Speci men Type: BLOOD SPECIMENOrdering Facility: [facility] Address: [address] [place] [address] Result Comment: The [place] Diabetes Association (ADA) provides guidance for cutoff [...] Standards of Medical Care in Diabetes 2016, [place] Diabetes Association. Diabetes Care. 2016.39(Suppl 1). Performed By: #### 2 4323-8, 25624-4 ####[facility] LABIA [id number] [place] [id number] [place] Potassium [Moles/Vol] 4.8 mmol/L Normal 3.7-5.1 [facility] Comment on above: Order Comment: Specyoandy men Type: BLOOD SPECIMENOrdering Facility: [facility] Address: [address] [place] [address] Performed By: #### 2 4323-8, 38619-7 ####[facility] LABCLIA [id number] [place] [address] [place] Protein [Mass/Vol] 7.2 g/dL Normal 6.3-8.0 [facility] Comment on above: Order Comment: Speci men Type: BLOOD SPECIMENOrdering Facility: [facility] Address: [address] [place] [address] Performed By: #### 2 4323-8, 51058-3 ####[facility] LABCLIA [id number] [place] [address] [place] Sodium [Moles/Vol] 141 mmol/L Normal 136-144 [facility] Comment on above: Order Comment: Speci men Type: BLOOD SPECIMENOrdering Facility: [facility] Address: [address] [place] [address] Performed By: #### 2 4323-8, 97195-6 ####[facility] LABIA [id number] [place] [address] [place] Urea nitrogen [Mass/Vol] 37 mg/dL High 7-21 [facility] Comment on above: Order Comment: Speci men Type: BLOOD SPECIMENOrdering Facility: [facility] Address: [address] [place] [address] Performed By: #### 2 4323-8, 84629-3 ####[facility] LABIA [id number] [place] [address] [place] HbA1c (Bld)on 04-15-2024 Average glucose Estimated from glycated hemoglobin (Bld) [Mass/Vol] 180 mg/dL Normal [facility] Comment on above: Order Comment: Speci men Type: BLOOD SPECIMENOrdering Facility: [facility] Address: [address] [place] [address] Result Comment: eAG: (Estimated average glucose) is a calculated value from HgbA1c and is traveling representative of the average blood glucose level in the last 2-3 month period. Performed By: #### 5 5454-3 ####[facility] LABCLIA [id number] [place] [address] [place] HbA1c (Bld) [Mass fraction] 7.9 % High 4.3-5.6 [facility] Comment on above: Order Comment: Speci men Type: BLOOD SPECIMENOrdering Facility: [facility] Address: [address] [place] [address] Result Comment: [place] Diabetes Association guidelines indicate that patients with HgbA1c in the range 5.7-6.4% are at increased risk for development of diabetes, and intervention by lifestyle modification may be beneficial. HgbA1c greater or equal to 6.5% is considered diagnostic of diabetes. Performed By: #### 5 5454-3 ####[facility] LABCLIA [id number] [place] [address] [place] Lipid 1996 panelon 4 Cholesterol [Mass/Vol] 131 mg/dL Normal <200 [facility] Comment on above: Order Comment: Maxim men Type: BLOOD SPECIMENOrdering Facility: [facility] Address: [address] [place] [address] Result Comment: <200 mg/dL, Desirable 200-239 mg/dL, Borderline high >239 mg/dL, High Performed By: #### 2 4323-8, 82759-5 ####[facility] LABCLIA [id number] [address] [place] Cholesterol in HDL [Mass/Vol] 34 mg/dL Low >39 [facility] Comment on above: Order Comment: [facility] Type: BLOOD SPECIMENOrdering Facility: [facility] Address: [address] [place] [address] Result Comment: 40-5 9 mg/dL, Acceptable >59 mg/dL, High: Negative risk factor for coronary heart disease <40 mg/dL, Low: Positive risk factor for coronary heart disease Performed By: #### 2 4323-8, 28441-3 ####[facility] LABCLIA [id number] [place] [address] [place] Cholesterol in LDL [Mass/Vol] 68 mg/dL Normal <100 [facility] Comment on above: Order Comment: Speci men Type: BLOOD SPECIMENOrdering Facility: [facility] Address: [address] [place] [address] Result Comment: <100 mg/dL, Optimal 100-129 mg/dL, Near optimal/above optimal 130-159 mg/dL, Borderline high 160-189 mg/dL, High >189 mg/dL, Very high Secondary prevention optimal LDL Cholesterol levels are recommended to be < 70 mg/dL Performed By: #### 2 4323-8, 99816-9 ####[facility] LABIA [id number] [address] [place] Cholesterol in LDL/Cholesterol in HDL [Mass ratio] 2.00 {ratio} Normal <2.54 [facility] Comment on above: Order Comment: Speci men Type: BLOOD SPECIMENOrdering Facility: [facility] Address: [address] [place] [address] Result Comment: Refnery sheffield: 1. National Cholesterol Education Program ATP III Guideline At-A-Glance Quick Desk Reference: National Heart, Lung, and Blood [place]. National Institutes of Health. 2001: NIH Publication No. 01-3305. 2. An International Atherosclerosis Society position paper: global recommendations for the management of dyslipidemia: executive summary, Atherosclerosis. 2014: 232(2):410-413. Performed By: #### 2 4323-8, 23080-6 ####[facility] LABCLIA [id number] [place] [address] [place] Cholesterol in VLDL [Mass/Vol] 29 mg/dL Normal <30 [facility] Comment on above: Order Comment: Trevori men Type: BLOOD SPECIMENOrdering Facility: [facility] Address: [address] [place] [address] Performed By: #### 2 4323-8, 63401-9 ####[facility] LABCLIA [id number] [place] [address] [place] Cholesterol non HDL [Mass/Vol] 97 mg/dL Normal <130 [facility] Comment on above: Order Comment: Speci men Type: BLOOD SPECIMENOrdering Facility: [facility] Address: [address] [place] [address] Result Comment: <130 mg/dL, Optimal 130-159 mg/dL, Near optimal/above optimal 160-189 mg/dL, Borderline high 190-219 mg/dL, High >219 mg/dL, Very high Secondary prevention optimal non HDL Cholesterol levels are recommended to be <100 mg/dL Performed By: #### 2 4323-8, 04632-2 ####[facility] LABCLIA [id number] [place] [address] [place] Cholesterol.total/Antonia sterol in HDL [Mass ratio] 3.85 {ratio} Normal <5.10 [facility] Comment on above: Order Comment: Speci men Type: BLOOD SPECIMENOrdering Facility: [facility] Address: [address] [place] [address] Performed By: #### 2 4323-8, 44907-6 ####[facility] LABCLIA [id number] [address] [place] FASTING TIME 14 hrs Normal [facility] Comment on above: Order Comment: Speci men Type: BLOOD SPECIMENOrdering Facility: [facility] Address: [address] [place] [address] Performed By: #### 2 4323-8, 32526-5 ####[facility] LABCLIA [id number] [place] [address] [place] Triglyceride [Mass/Vol] 146 mg/dL Normal <150 [facility] Comment on above: Order Comment: Speci men Type: BLOOD SPECIMENOrdering Facility: [facility] Address: [address] [place] [address] Result Comment: <150 mg/dL, Normal 150-199 mg/dL, Borderline high 200-499 mg/dL, High >499 mg/dL, Very high Performed By: #### 2 4323-8, 18140-2 ####[facility] LABCLIA [id number] [place] [address] [place] CNOVon 04-10-2024 CNOV Office Visit (FAMPWS ) ROSA MYERS ([id number]) 1950 F Date Time Provider Department 04/10/24 6:00 PM [facility] During your visit today, we recorded the [...] taking ASA 81 mg daily. Follows with [facility]; had recent echo showing no change [...] 1 capsule by mouth once daily. Insulin Sanford, Disposable, (RELION PEN NEEDLES) 32 x 5/32 " ndle Use a (more content not included)... Normal [facility] ([id number]) 1950 F Date Time Provider Department 04/04/24 MACIEL BUSBY [facility] During your visit today, we recorded the following information about you: Maciel Busby APRN.CNP 04/04/2024 10:49 AM Signed STAMP Please reach out to patient for overdue appointment for chronic disease management with myself. If he/she is no longer following with Dr. James, please remove name from PCP field. Due for Medicare Wellness/Follow up, would need 40 minutes. Maciel Busby APRN.SIGNAL INTELLIGENCE ANALYST Allergies As of Date: 04/04/2024 Noted Allergy [...] capsule by mouth once daily. - Insulin Sanford, Disposable, (RELION PEN NEEDLES) 32 x 5/32 [...] kidney disease, stage 4 (severe) (HCC) *04/15/2023 tank terminal gauger current use of insulin (HCC) [Z79.4] 10/15/2023 Heart failure, unspecified ([facility]) [I50.9] 04/15/2023 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*04/15/2023 Encounter Status:Closed by CHA TAVERAS on 04/04/24 [facility] Basophil percentageOrdered B y: Carmela Funk on 06-25-2023 Chloride [Moles/Vol] 106 mmol/L 98-107 [facility] Glucose [Mass/Vol] 119 mg/dL 74-106 [facility] Comment on above: Fasting Glucose resu lt from 100 to 125 mg/dL suggests IMPAIRED HOMEOSTASIS per A.D.A. criteria. Potassium [Moles/Vol] 3.7 mmol/L 3.5-5.1 [facility] Sodium [Moles/Vol] 139 mmol/L 136-[address] [facility] Laboratory - Chemistry and C hemistry - challengeOrdered By: Carmela Funk on 06-25-2023 CO2 [Moles/Vol] 29.0 mmol/L 21.0-32.0 [facility] Urea nitrogen/Creatinine [Mass ratio] 17.5 mg/mg 10-20 [facility] No Panel InformationOrdered By: Carmela Funk on 06-25-2023 Estimated GFR (MDRD) Amer 31 mL/min >60 [facility] Comment on above: GFR Calc Estimated GFR (MDRD) Non-Af Amer 26 mL/min >60 [facility] Comment on above: Non- GFR Calc Serum or plasma calcium kayleigh urement (mass/volume)Ordered By: Carmela Funk on 06-25-2023 Calcium [Mass/Vol] 9.0 mg/dL 8.5-10.[address] [facility] Serum or plasma creatinine m easurement (mass/volume)Ordered By: Carmela Funk on 06-25-2023 Creatinine [Mass/Vol] 2.00 mg/dL 0.55-1.02 [facility] Comment on above: The validity of the calculated GFR & GFRAA in patients over 70 years has not been determined. Clinical correlation is essential. Serum or plasma urea nitroge n measurement (mass/volume)Ordered By: Carmela Funk on 06-25-2023 Urea nitrogen [Mass/Vol] 35 mg/dL 7-18 [facility] Thin prep Papanicolaou smear with manual screeningOrdered By: Carmela Funk on 06-25-2023 Thin prep Papanicolaou smear with manual screening 4 5-15 [facility] Absolute lymphocyte countOrd ered By: Carmela Funk on 06-17-2023 Lymphocytes Auto (Unsp spec) [#/Vol] 1.21 10*3/uL 0.83-4.51 [facility] Basophil percentageOrdered B y: Carmela Funk on 06-17-2023 Basophils/100 WBC (Bld) 1.1 % 0-1 [facility] Chloride [Moles/Vol] 106 mmol/L 98-107 [facility] Eosinophils/100 WBC (Bld) 1.8 % 0-5 [facility] Glucose [Mass/Vol] 108 mg/dL 74-[address] [facility] Comment on above: Fasting Glucose resu lt from 100 to 125 mg/dL suggests IMPAIRED HOMEOSTASIS per A.D.A. criteria. Neutrophils (Bld) [#/Vol] 3.5 10*3/uL 2.0-7.7 [facility] Neutrophils/100 WBC (Bld) 63.6 % 47-70 [facility] Potassium [Moles/Vol] 4.2 mmol/L 3.5-5.1 [facility] Sodium [Moles/Vol] 140 mmol/L 136-[address] [facility] WBC (Bld) [#/Vol] 5.5 10*3/uL 4.4-11.[address] [facility] Blood erythrocytes count (nu mber/volume)Ordered By: Carmela Funk on 06-17-2023 RBC (Bld) [#/Vol] 3.70 10*6/uL 4.2-5.[address] [facility] Blood hemoglobin measurement (mass/volume)Ordered By: Carmela Funk on 06-17-2023 Hemoglobin (Bld) [Mass/Vol] 9.7 g/dL 12.0-15.0 [facility] Blood lymphocytes/100 leukoc ytesOrdered By: Carmela Funk on 06-17-2023 Lymphocytes/100 WBC (Bld) 22.1 % 19-41 [facility] Blood monocytes/100 leukocyt esOrdered By: Carmela Funk on 06-17-2023 Monocytes/100 WBC (Bld) 11.2 % 0-10 [facility] Blood platelet mean volumeOr dered By: Carmela Funk on 06-17-2023 Platelet mean volume (Bld) [Entitic vol] 10.6 fL 6.2-12.0 [facility] Determination of erythrocyte mean corpuscular volume (MCV)Ordered By: Carmela Funk on 06-17-2023 MCV (RBC) [Entitic vol] 86.8 fL 81-99 [facility] Hematocrit Auto (Bld) [Volum e fraction]Ordered By: Carmela Funk on 06-17-2023 Hematocrit (Bld) [Volume fraction] 32.1 % 37-47 [facility] Laboratory - Chemistry and C hemistry - challengeOrdered By: Carmela Funk on 06-17-2023 CO2 [Moles/Vol] 29.0 mmol/L 21.0-32.0 [facility] Natriuretic peptide B (Bld) [Mass/Vol] 281.8 pg/mL 0-100 [facility] Urea nitrogen/Creatinine [Mass ratio] 14.5 mg/mg 10-20 [facility] Laboratory - Hematology and Cell countsOrdered By: Carmela Funk on 06-17-2023 Erythrocyte distribution width (RBC) [Entitic vol] 49.9 fL 35.1-43.9 [facility] Erythrocyte distribution width (RBC) [Ratio] 15.6 % 11.6-14.6 [facility] Immature granulocytes/100 WBC (Bld) 0.200 % 0.0-0.9 [facility] Comment on above: IG% - Immature Granu locytes (promyelocytes, myelocytes and metamyelocytes) > 1% indicates that a LEFT SHIFT is Present. MCH (RBC) [Entitic mass] 26.2 pg 27.0-32.0 [facility] Nucleated RBC/100 WBC (Bld) [Ratio] 0 % 0-5 [facility] MCHC Auto (RBC) [Mass/Vol]Or dered By: Carmela Funk on 06-17-2023 MCHC (RBC) [Mass/Vol] 30.2 g/dL 32-36 [facility] No Panel InformationOrdered By: Carmela Funk on 06-17-2023 Estimated GFR (MDRD) Amer 34 mL/min >60 [facility] Comment on above: GFR Calc Estimated GFR (MDRD) Non-Af Amer 28 mL/min >60 [facility] Comment on above: Non- GFR Calc Thyroid Stimulating Hormone (TSH) 4.15 uIU/mL 0.358-3.74 [facility] Platelets bldOrdered By: Maco Funk on 06-17-2023 Platelets (Bld) [#/Vol] 280 10*3/uL 150-450 [facility] Serum or plasma calcium kayleigh urement (mass/volume)Ordered By: Carmela Funk on 06-17-2023 Calcium [Mass/Vol] 9.0 mg/dL 8.5-10.[address] [facility] Serum or plasma creatinine m easurement (mass/volume)Ordered By: Carmela Funk on 06-17-2023 Creatinine [Mass/Vol] 1.86 mg/dL 0.55-1.02 [facility] Comment on above: The validity of the calculated GFR & GFRAA in patients over 70 years has not been determined. Clinical correlation is essential. Serum or plasma urea nitroge n measurement (mass/volume)Ordered By: Carmela Funk on 06-17-2023 Urea nitrogen [Mass/Vol] 27 mg/dL 7-18 [facility] Thin prep Papanicolaou smear with manual screeningOrdered By: Carmela Funk on 06-17-2023 Thin prep Papanicolaou smear with manual screening 5 5-15 [facility] Absolute lymphocyte counton 06-03-2022 Lymphocytes Auto (Unsp spec) [#/Vol] 1.04 10*3/uL 0.83-4.51 [facility] Work Phone: Basophil percentageon 2021 Basophils/100 WBC (Bld) 0.8 % 0-1 [facility] Work Phone: Chloride [Moles/Vol] 108 mmol/L 98-107 [facility] Work Phone: Eosinophils/100 WBC (Bld) 1.1 % 0-5 [facility] Work Phone: Glucose [Mass/Vol] 217 mg/dL 74-[address] [facility] Work Phone: Comment on above: Glucose result great er than or equal to 200 mg/dLsuggests DIABETES MELLITUS per A.D.A. criteria. Neutrophils (Bld) [#/Vol] 6.4 10*3/uL 2.0-7.7 [facility] Work Phone: Neutrophils/100 WBC (Bld) 78.2 % 47-70 [facility] Work Phone: Potassium [Moles/Vol] 5.3 mmol/L 3.5-5.1 [facility] Work Phone: Sodium [Moles/Vol] 136 mmol/L 136-[address] [facility] Work Phone: WBC (Bld) [#/Vol] 8.2 10*3/uL 4.4-11.0 [facility] Work Phone: Blood erythrocytes count (nu mber/volume)on 06-03-2022 RBC (Bld) [#/Vol] 3.88 10*6/uL 4.2-5.4 [facility] Work Phone: Blood hemoglobin measurement (mass/volume)on 06-03-2022 Hemoglobin (Bld) [Mass/Vol] 9.7 g/dL 12.0-15.0 [facility] Work Phone: Blood lymphocytes/100 leukoc yteson 06-03-2022 Lymphocytes/100 WBC (Bld) 12.6 % 19-41 [facility] Work Phone: Blood monocytes/100 leukocyt eson 06-03-2022 Monocytes/100 WBC (Bld) 6.9 % 0-10 [facility] Work Phone: Blood platelet mean volumeon 06-03-2022 Platelet mean volume (Bld) [Entitic vol] 10.1 fL 6.2-12.0 [facility] Work Phone: Determination of erythrocyte mean corpuscular volume (MCV)on 06-03-2022 MCV (RBC) [Entitic vol] 81.7 fL 81-99 [facility] Work Phone: Hematocrit Auto (Bld) [Volum e fraction]on 06-03-2022 Hematocrit (Bld) [Volume fraction] 31.7 % 37-47 [facility] Work Phone: Laboratory - Chemistry and C hemistry - challengeon 06-03-2022 CO2 [Moles/Vol] 22.0 mmol/L 21.0-32.0 [facility] Work Phone: Urea nitrogen/Creatinine [Mass ratio] 19.4 mg/mg 10-20 [facility] Work Phone: Laboratory - Hematology and Cell countson 06-03-2022 Erythrocyte distribution width (RBC) [Entitic vol] 49.9 fL 35.1-43.9 [facility] Work Phone: [phone] Erythrocyte distribution width (RBC) [Ratio] 16.7 % 11.6-14.6 [facility] Work Phone: [phone] Immature granulocytes/100 WBC (Bld) 0.400 % 0.0-0.9 [facility] Work Phone: Comment on above: IG% - Immature Granu locytes (promyelocytes, myelocytes and metamyelocytes) > 1% indicates that a LEFT SHIFT is Present. MCH (RBC) [Entitic mass] 25.0 pg 27.0-32.0 [facility] Work Phone: Nucleated RBC/100 WBC (Bld) [Ratio] 0 % 0-5 [facility] Work Phone: [phone] MCHC Auto (RBC) [Mass/Vol]on 06-03-2022 MCHC (RBC) [Mass/Vol] 30.6 g/dL 32-36 [facility] Work Phone: No Panel Informationon 06-03 Estimated GFR (MDRD) Amer 26 mL/min >60 [facility] Work Phone: Comment on above: GFR Calc Estimated GFR (MDRD) Non-Af Amer 21 mL/min >60 [facility] Work Phone: Comment on above: Non- GFR Calc Platelets bldon 06-03-2022 Platelets (Bld) [#/Vol] 231 10*3/uL 150-450 [facility] Work Phone: [phone] Serum or plasma calcium kayleigh urement (mass/volume)on 06-03-2022 Calcium [Mass/Vol] 9.0 mg/dL 8.5-10.[address] [facility] Work Phone: [phone] Serum or plasma creatinine m easurement (mass/volume)on 06-03-2022 Creatinine [Mass/Vol] 2.37 mg/dL 0.55-1.02 [facility] Work Phone: [phone] Comment on above: The validity of the calculated GFR & GFRAA in patients over 70 years has not been determined. Clinical correlation is essential. Serum or plasma urea nitroge n measurement (mass/volume)on 06-03-2022 Urea nitrogen [Mass/Vol] 46 mg/dL 7-18 [facility] Work Phone: Thin prep Papanicolaou smear with manual screeningon 06-03-2022 Thin prep Papanicolaou smear with manual screening 6 5-15 [facility] Work Phone: Basophil percentageon 2021 Chloride [Moles/Vol] 103 mmol/L 98-107 [facility] Work Phone: [phone] Glucose [Mass/Vol] 198 mg/dL 74-[address] [facility] Work Phone: [phone] Comment on above: Fasting Glucose resu lt greater than or equal to 126 mg/dL suggests DIABETES MELLITUS per A.D.A. criteria. Potassium [Moles/Vol] 4.5 mmol/L 3.5-5.1 [facility] Work Phone: [phone] Sodium [Moles/Vol] 139 mmol/L 136-[address] [facility] Work Phone: [phone] WBC (Bld) [#/Vol] 6.6 10*3/uL 4.4-11.[address] [facility] Work Phone: [phone] Blood erythrocytes count (nu mber/volume)on 03-02-2022 RBC (Bld) [#/Vol] 3.28 10*6/uL 4.2-5.[address] [facility] Work Phone: [phone] Blood hemoglobin measurement (mass/volume)on 03-02-2022 Hemoglobin (Bld) [Mass/Vol] 8.2 g/dL 12.0-15.0 [facility] Work Phone: [phone] Blood platelet mean volumeon 03-02-2022 Platelet mean volume (Bld) [Entitic vol] 10.8 fL 6.2-12.0 [facility] Work Phone: [phone] Determination of erythrocyte mean corpuscular volume (MCV)on 03-02-2022 MCV (RBC) [Entitic vol] 85.1 fL 81-99 [facility] Work Phone: Hematocrit Auto (Bld) [Volum e fraction]on 03-02-2022 Hematocrit (Bld) [Volume fraction] 27.9 % 37-47 [facility] Work Phone: Laboratory - Chemistry and C hemistry - challengeon 03-02-2022 CO2 [Moles/Vol] 30.0 mmol/L 21.0-32.0 [facility] Work Phone: Urea nitrogen/Creatinine [Mass ratio] 25.0 mg/mg 10-20 [facility] Work Phone: Laboratory - Hematology and Cell countson 03-02-2022 Erythrocyte distribution width (RBC) [Entitic vol] 49.0 fL 35.1-43.9 [facility] Work Phone: Erythrocyte distribution width (RBC) [Ratio] 15.8 % 11.6-14.6 [facility] Work Phone: MCH (RBC) [Entitic mass] 25.0 pg 27.0-32.0 [facility] Work Phone: MCHC Auto (RBC) [Mass/Vol]on 03-02-2022 MCHC (RBC) [Mass/Vol] 29.4 g/dL 32-36 [facility] Work Phone: No Panel Informationon 03-02 Estimated GFR (MDRD) Amer 35 mL/min >60 [facility] Work Phone: Comment on above: GFR Calc Estimated GFR (MDRD) Non-Af Amer 29 mL/min >60 [facility] Work Phone: Comment on above: Non- GFR Calc Platelets bldon 03-02-2022 Platelets (Bld) [#/Vol] 196 10*3/uL 150-450 [facility] Work Phone: Serum or plasma calcium kayleigh urement (mass/volume)on 03-02-2022 Calcium [Mass/Vol] 8.5 mg/dL 8.5-10.[address] [facility] Work Phone: Serum or plasma creatinine m easurement (mass/volume)on 03-02-2022 Creatinine [Mass/Vol] 1.80 mg/dL 0.55-1.02 [facility] Work Phone: Comment on above: The validity of the calculated GFR & GFRAA in patients over 70 years has not been determined. Clinical correlation is essential. Serum or plasma urea nitroge n measurement (mass/volume)on 03-02-2022 Urea nitrogen [Mass/Vol] 45 mg/dL 7-18 [facility] Work Phone: Thin prep Papanicolaou smear with manual screeningon 03-02-2022 Thin prep Papanicolaou smear with manual screening 6 5-15 [facility] Work Phone: Absolute lymphocyte counton 02-26-2022 Lymphocytes Auto (Unsp spec) [#/Vol] 0.89 10*3/uL 0.83-4.51 [facility] Work Phone: Basophil percentageon 2021 Basophils/100 WBC (Bld) 0.7 % 0-1 [facility] Work Phone: Chloride [Moles/Vol] 103 mmol/L 98-107 [facility] Work Phone: Eosinophils/100 WBC (Bld) 1.8 % 0-5 [facility] Work Phone: Glucose [Mass/Vol] 254 mg/dL 74-[address] [facility] Work Phone: Comment on above: Glucose result great er than or equal to 200 mg/dLsuggests DIABETES MELLITUS per A.D.A. criteria. Neutrophils (Bld) [#/Vol] 5.6 10*3/uL 2.0-7.7 [facility] Work Phone: Neutrophils/100 WBC (Bld) 75.1 % 47-70 [facility] Work Phone: [phone] Potassium [Moles/Vol] 5.1 mmol/L 3.5-5.1 [facility] Work Phone: Sodium [Moles/Vol] 136 mmol/L 136-[address] [facility] Work Phone: [phone] WBC (Bld) [#/Vol] 7.4 10*3/uL 4.4-11.[address] [facility] Work Phone: [phone] Blood erythrocytes count (nu mber/volume)on 02-26-2022 RBC (Bld) [#/Vol] 3.31 10*6/uL 4.2-5.[address] [facility] Work Phone: [phone] Blood hemoglobin measurement (mass/volume)on 02-26-2022 Hemoglobin (Bld) [Mass/Vol] 8.4 g/dL 12.0-15.0 [facility] Work Phone: [phone] Blood lymphocytes/100 leukoc yteson 02-26-2022 Lymphocytes/100 WBC (Bld) 12.0 % 19-41 [facility] Work Phone: Blood monocytes/100 leukocyt eson 02-26-2022 Monocytes/100 WBC (Bld) 10.0 % 0-10 [facility] Work Phone: [phone] Blood platelet mean volumeon 02-26-2022 Platelet mean volume (Bld) [Entitic vol] 10.8 fL 6.2-12.0 [facility] Work Phone: [phone] Determination of erythrocyte mean corpuscular volume (MCV)on 02-26-2022 MCV (RBC) [Entitic vol] 85.8 fL 81-99 [facility] Work Phone: [phone] Glucose Glucometer (BldC) [M ass/Vol]on 02-26-2022 Glucose [Mass/Vol] 343 mg/dL 74-[address] [facility] Work Phone: [phone] Comment on above: MANAGEMENT OF PATIEN T CARE PER NURSING PROTOCOL Hematocrit Auto (Bld) [Volum e fraction]on 02-26-2022 Hematocrit (Bld) [Volume fraction] 28.4 % 37-47 [facility] Work Phone: Laboratory - Chemistry and C hemistry - challengeon 02-26-2022 CO2 [Moles/Vol] 27.0 mmol/L 21.0-32.0 [facility] Work Phone: [phone] Urea nitrogen/Creatinine [Mass ratio] 23.6 mg/mg 10-20 [facility] Work Phone: [phone] Laboratory - Hematology and Cell countson 02-26-2022 Erythrocyte distribution width (RBC) [Entitic vol] 48.4 fL 35.1-43.9 [facility] Work Phone: [phone] Erythrocyte distribution width (RBC) [Ratio] 15.5 % 11.6-14.6 [facility] Work Phone: [phone] Immature granulocytes/100 WBC (Bld) 0.400 % 0.0-0.9 [facility] Work Phone: [phone] Comment on above: IG% - Immature Granu locytes (promyelocytes, myelocytes and metamyelocytes) > 1% indicates that a LEFT SHIFT is Present. MCH (RBC) [Entitic mass] 25.4 pg 27.0-32.0 [facility] Work Phone: [phone] Nucleated RBC/100 WBC (Bld) [Ratio] 0 % 0-5 [facility] Work Phone: [phone] MCHC Auto (RBC) [Mass/Vol]on 02-26-2022 MCHC (RBC) [Mass/Vol] 29.6 g/dL 32-36 [facility] Work Phone: [phone] Panel Informationon 02-26 Estimated Creatinine Clearance Calc 19.35 ml/min [facility] Work Phone: [phone] Estimated GFR (MDRD) Amer 26 mL/min >60 [facility] Work Phone: [phone] Comment on above: GFR Calc Estimated GFR (MDRD) Non-Af Amer 22 mL/min >60 [facility] Work Phone: [phone] Comment on above: Non- GFR Calc Platelets bldon 02-26-2022 Platelets (Bld) [#/Vol] 219 10*3/uL 150-450 [facility] Work Phone: Serum or plasma calcium kayleigh urement (mass/volume)on 02-26-2022 Calcium [Mass/Vol] 8.5 mg/dL 8.5-10.[address] [facility] Work Phone: Serum or plasma creatinine m easurement (mass/volume)on 02-26-2022 Creatinine [Mass/Vol] 2.33 mg/dL 0.55-1.02 [facility] Work Phone: Comment on above: The validity of the calculated GFR & GFRAA in patients over 70 years has not been determined. Clinical correlation is essential. Serum or plasma urea nitroge n measurement (mass/volume)on 02-26-2022 Urea nitrogen [Mass/Vol] 55 mg/dL 7-18 [facility] Work Phone: Thin prep Papanicolaou smear with manual screeningon 02-26-2022 Thin prep Papanicolaou smear with manual screening 6 5-15 [facility] Work Phone: Basophil percentageon 2021 Basophil percentage 4.5 mg/dL 2.5-4.[address] [facility] Work Phone: Laboratory - Chemistry and C hemistry - challengeon 02-25-2022 Magnesium [Mass/Vol] 2.7 mg/dL 1.6-2.6 [facility] Work Phone: Basophil percentageon 2021 Bilirubin [Mass/Vol] 1.00 mg/dL 0.20-1.00 [facility] Work Phone: Comment on above: For patients on eltr ombopag therapy, use of Dimension [place] TBIL is not recommended. Protein [Mass/Vol] 6.1 g/dL 6.4-8.[address] [facility] Work Phone: Laboratory - Chemistry and C hemistry - challengeon 02-24-2022 ALP [Catalytic activity/Vol] 66 U/L 45-117 [facility] Work Phone: ALT [Catalytic activity/Vol] 15 U/L 13-56 [facility] Work Phone: Globulin (S) [Mass/Vol] 3.3 g/dL 2.2-4.2 [facility] Work Phone: Serum or plasma albumin kayleigh urement (mass/volume)on 02-24-2022 Albumin [Mass/Vol] 2.8 g/dL 3.2-5.[address] [facility] Work Phone: Serum or plasma albumin/glob ulin mass ratioon 02-24-2022 Albumin/Globulin [Mass ratio] 0.8 {ratio} 0.9-2.4 [facility] Work Phone: Thin prep Papanicolaou smear with manual screeningon 02-24-2022 Thin prep Papanicolaou smear with manual screening 11 U/L 15-37 [facility] Work Phone: INR in Blood by Coagulation assayon 02-23-2022 INR Coag (Bld) [Relative time] 1.3 {INR} [facility] Work Phone: Laboratory - Coagulationon 0 02-23-2022 PT Coag (PPP) [Time] 16.1 s 11.7-14.9 [facility] Work Phone: Absolute lymphocyte counton 02-22-2022 Lymphocytes Auto (Unsp spec) [#/Vol] 1.12 10*3/uL 0.83-4.51 [facility] Work Phone: Basophil percentageon 2021 Basophils/100 WBC (Bld) 0.7 % 0-1 [facility] Work Phone: Chloride [Moles/Vol] 107 mmol/L 98-107 [facility] Work Phone: Eosinophils/100 WBC (Bld) 1.6 % 0-5 [facility] Work Phone: Glucose [Mass/Vol] 371 mg/dL 74-[address] [facility] Work Phone: Comment on above: Glucose result great er than or equal to 200 mg/dLsuggests DIABETES MELLITUS per A.D.A. criteria. Neutrophils (Bld) [#/Vol] 6.4 10*3/uL 2.0-7.7 [facility] Work Phone: Neutrophils/100 WBC (Bld) 75.1 % 47-70 [facility] Work Phone: [phone] Potassium [Moles/Vol] 4.7 mmol/L 3.5-5.1 [facility]: [phone] Sodium [Moles/Vol] 139 mmol/L 136-[address] [facility] Work Phone: [phone] WBC (Bld) [#/Vol] 8.5 10*3/uL 4.4-11.[address] [facility] Work Phone: [phone] Blood erythrocytes count (nu mber/volume)on 02-22-2022 RBC (Bld) [#/Vol] 3.16 10*6/uL 4.2-5.4 [facility]: Blood hemoglobin measurement (mass/volume)on 02-22-2022 Hemoglobin (Bld) [Mass/Vol] 7.7 g/dL 12.0-15.0 [facility] Work Phone: Blood lymphocytes/100 leukoc yteson 02-22-2022 Lymphocytes/100 WBC (Bld) 13.2 % 19-41 [facility] Work Phone: [phone] Blood monocytes/100 leukocyt eson 02-22-2022 Monocytes/100 WBC (Bld) 8.6 % 0-10 [facility] Work Phone: [phone] Blood platelet mean volumeon 02-22-2022 Platelet mean volume (Bld) [Entitic vol] 10.5 fL 6.2-12.0 [facility] Work Phone: Determination of erythrocyte mean corpuscular volume (MCV)on 02-22-2022 MCV (RBC) [Entitic vol] 85.4 fL 81-99 [facility] Work Phone: Hematocrit Auto (Bld) [Volum e fraction]on 02-22-2022 Hematocrit (Bld) [Volume fraction] 27.0 % 37-47 [facility] Work Phone: [phone] Laboratory - Chemistry and C hemistry - challengeon 02-22-2022 CO2 [Moles/Vol] 21.0 mmol/L 21.0-32.0 [facility] Work Phone: [phone] Natriuretic peptide B (Bld) [Mass/Vol] 595.4 pg/mL 0-100 [facility] Work Phone: [phone] Urea nitrogen/Creatinine [Mass ratio] 15.5 mg/mg 10-20 [facility] Work Phone: [phone] Laboratory - Hematology and Cell countson 02-22-2022 Erythrocyte distribution width (RBC) [Entitic vol] 46.9 fL 35.1-43.9 [facility] Work Phone: [phone] Erythrocyte distribution width (RBC) [Ratio] 15.2 % 11.6-14.6 [facility] Work Phone: [phone] Immature granulocytes/100 WBC (Bld) 0.800 % 0.0-0.9 [facility] Work Phone: [phone] Comment on above: IG% - Immature Granu locytes (promyelocytes, myelocytes and metamyelocytes) > 1% indicates that a LEFT SHIFT is Present. MCH (RBC) [Entitic mass] 24.4 pg 27.0-32.0 [facility] Work Phone: [phone] Nucleated RBC/100 WBC (Bld) [Ratio] 0 % 0-5 [facility] Work Phone: [phone] Lower GI hemoglobin IA Ql (S tl)on 02-22-2022 Stool Occult Blood (TREVOR) Positive [facility] Work Phone: [phone] MCHC Auto (RBC) [Mass/Vol]on 02-22-2022 MCHC (RBC) [Mass/Vol] 28.5 g/dL 32-36 [facility] Work Phone: [phone] Panel Informationon 02-22 Troponin I High Sensitivity 64 pg/mL 3.0-54.0 [facility] Work Phone: Comment on above: Please Note: New Yvrose t Units and Gender Specific Reference Ranges. For more information see Policy Stat Procedure [place] High Sensitivity Troponin (TNIH) and attachments. SARS-CoV-2 & FLU Antigen (Rapid) [facility] Work Phone: D-Dimer Quantitative (PE/DVT) 0.83 FEU/ug/m 0.27-0.49 [facility] Work Phone: Comment on above: D-Dimer ELEVATED (>0 .49): Additional studies and clinicalassessments are indicated to conclude diagnosis of:Deep Vein Thrombosis (DVT) or Pulmonary Embolism (PE)CRITICAL VALUE VERIFIED. CALLED TO LOUIS SANCHEZ02/22/22 0905 Kylie Fernandez.RESULTS READ BACK BY SAME . Estimated Creatinine Clearance Calc 23.24 ml/min [facility] Work Phone: Estimated GFR (MDRD) Amer 32 mL/min >60 [facility] Work Phone: Comment on above: GFR Calc Estimated GFR (MDRD) Non-Af Amer 27 mL/min >60 [facility] Work Phone: Comment on above: Non- GFR Calc Troponin I High Sensitivity 14 pg/mL 3.0-54.0 [facility] Work Phone: Comment on above: Please Note: New Yvrose t Units and Gender Specific Reference Ranges. For more information see Policy Stat Procedure [place] High Sensitivity Troponin (TNIH) and attachments. Thyroid Stimulating Hormone (TSH) 5.15 uIU/mL 0.358-3.74 [facility] Work Phone: Platelets bldon 02-22-2022 Platelets (Bld) [#/Vol] 319 10*3/uL 150-450 [facility] Work Phone: [phone] Serum or plasma calcium kayleigh urement (mass/volume)on 02-22-2022 Calcium [Mass/Vol] 9.0 mg/dL 8.5-10.[address] [facility] Work Phone: [phone] Serum or plasma creatinine m easurement (mass/volume)on 02-22-2022 Creatinine [Mass/Vol] 1.94 mg/dL 0.55-1.02 [facility] Work Phone: Comment on above: The validity of the calculated GFR & GFRAA in patients over 70 years has not been determined. Clinical correlation is essential. Serum or plasma urea nitroge n measurement (mass/volume)on 02-22-2022 Urea nitrogen [Mass/Vol] 30 mg/dL 7-18 [facility] Work Phone: Thin prep Papanicolaou smear with manual screeningon 02-22-2022 Thin prep Papanicolaou smear with manual screening 11 5-15 [facility] Work Phone: Whole blood hemoglobin A1c/t otal hemoglobin ratio (mass fraction)on 02-22-2022 HbA1c (Bld) [Mass fraction] 8.2 % 3.8-5.6 [facility] Work Phone: Comment on above: Normal < 5.7 % Predi abetic 5.7 - 6.4 % Diabetic >or= 6.5 % Please note range changes. Laboratory - Microbiology an d Antimicrobial susceptibility Bacteria identified Cx Nom (Bld) No growth in 5 days. [facility] Work Phone: Lower GI hemoglobin IA Ql (S tl) Stool Occult Blood (TREVOR) Positive [facility] Work Phone: Vital Signs Date Time Vital Sign Value Performing Clinician Facility 07-06-2025 17:27-0400 Diastolic blood pressure 89 mm[Hg] Leyda Lyon DO Work Phone: [id number] 07-06-2025 17:27-0400 SaO2% (BldA) [Mass fraction] 100 % Leyda Lyon DO Work Phone: [facility] 07-06-2025 17:27-0400 Systolic blood pressure 116 mm[Hg] Leyda Andersonsergey DO Work Phone: [facility] 07-06-2025 16:26-0400 Heart rate 70 /min Leyda Andersonsergey DO Work Phone: [facility] 07-06-2025 16:26-0400 Respiratory rate 17 /min Leyda Lyon DO Work Phone: [facility] 07-06-2025 12:00-0400 Body temperature 97.59 [degF] Leyda Lyon DO Work Phone: [facility] 07-05-2025 09:00-0400 Body mass index (BMI) [Ratio] 38.67 kg/m2 Leyda Lyon DO Work Phone: [facility] 07-05-2025 09:00-0400 Body weight 105.4 kg Leyda Lyon DO Work Phone: [facility] 07-05-2025 07:04-0400 Body height 165.1 cm Leyda Lyon DO Work Phone: [facility] 07-04-2025 15:05-0400 Diastolic blood pressure 70 mm[Hg] Ach 1 [facility] 07-04-2025 15:05-0400 Heart rate 63 /min Ach 1 [facility] 07-04-2025 15:05-0400 Respiratory rate 16 /min Ach 1 [facility] 07-04-2025 15:05-0400 SaO2% (BldA) [Mass fraction] 100 % Ach 1 [facility] 07-04-2025 15:05-0400 Systolic blood pressure 129 mm[Hg] Ach 1 [facility] 07-03-2025 22:48-0400 Heart rate 76 /min Gerardo Felder MD Work Phone: [facility] 07-03-2025 22:48-0400 Respiratory rate 16 /min Gerardo Felder MD Work Phone: [facility] 07-03-2025 22:48-0400 SaO2% (BldA) [Mass fraction] 100 % Gerardo Felder MD Work Phone: [facility] 07-03-2025 20:34-0400 Diastolic blood pressure 80 mm[Hg] Gerardo Felder MD Work Phone: [facility] 07-03-2025 20:34-0400 Systolic blood pressure 126 mm[Hg] Gerardo Felder MD Work Phone: [facility] 07-03-2025 13:39-0400 Body height 165.1 cm Gerardo Felder MD Work Phone: [facility] 07-03-2025 13:39-0400 Body mass index (BMI) [Ratio] 39.54 kg/m2 Gerardo Felder MD Work Phone: [facility] 07-03-2025 13:39-0400 Body temperature 98.2 [degF] Gerardo Felder MD Work Phone: [facility] 07-03-2025 13:39-0400 Body weight 107.78 kg Gerardo Felder MD Work Phone: [facility] 07-02-2025 19:00-0400 Diastolic blood pressure 53 mm[Hg] Klever Mudrakola DO Work Phone: [facility] 07-02-2025 19:00-0400 Heart rate 67 /min Klever Mudrakola DO Work Phone: [facility] 07-02-2025 19:00-0400 Respiratory rate 19 /min Klever Mudrakola DO Work Phone: [facility] 07-02-2025 19:00-0400 SaO2% (BldA) [Mass fraction] 100 % Klever Mudrakola DO Work Phone: [facility] 07-02-2025 19:00-0400 Systolic blood pressure 112 mm[Hg] Klever Mudrakola DO Work Phone: [facility] 07-02-2025 16:29-0400 Body temperature 97.39 [degF] Klever Mudrakola DO Work Phone: [facility] 06-21-2025 16:49-0400 Diastolic blood pressure 67 mm[Hg] Omid Orona MD Work Phone: [facility] 06-21-2025 16:49-0400 Heart rate 52 /min Omid Orona MD Work Phone: [facility] 06-21-2025 16:49-0400 SaO2% (BldA) [Mass fraction] 100 % Omid Orona MD Work Phone: [facility] 06-21-2025 16:49-0400 Systolic blood pressure 151 mm[Hg] Omid Orona MD Work Phone: [facility] 06-21-2025 12:52-0400 Respiratory rate 20 /min Omid Orona MD Work Phone: [facility] 06-21-2025 08:18-0400 Body temperature 97.81 [degF] Omid Orona MD Work Phone: [facility] 06-20-2025 11:40-0400 Body height 165.1 cm Omid Orona MD Work Phone: [facility] 06-11-2025 12:00-0400 Body mass index (BMI) [Ratio] 38.12 kg/m2 Omid Orona MD Work Phone: [facility] 06-11-2025 12:00-0400 Body weight 103.9 kg Omid Orona MD Work Phone: [facility] 02-12-2025 08:00-0400 Diastolic blood pressure 40 mm[Hg] Dr. Amado James MD Work Phone: [facility] 02-12-2025 08:00-0400 Heart rate 68 /min Dr. Amado James MD Work Phone: [facility] 02-12-2025 08:00-0400 Inhaled oxygen concentration 35 % Dr. Amado James MD Work Phone: [facility] 02-12-2025 08:00-0400 Respiratory rate 14 /min Dr. Amado James MD Work Phone: [facility] 02-12-2025 08:00-0400 SaO2% (BldA) [Mass fraction] 94 % Dr. Amado James MD Work Phone: [facility] 02-12-2025 08:00-0400 Systolic blood pressure 108 mm[Hg] Dr. Amado James MD Work Phone: [facility] 02-12-2025 06:00-0400 Body temperature 97.6 [degF] Dr. Amado James MD Work Phone: 9(090)269-925630 [place] [address] 02-12-2025 05:53-0400 Body mass index (BMI) [Ratio] 39.5 kg/m2 Dr. Amado James MD Work Phone: 7(380)822-975730 [place] [address] 02-12-2025 05:53-0400 Body weight 107.[address] Amado James MD Work Phone: 8(675)481-802230 [place] [address] 02-11-2025 13:30-0400 Body height 165.[address] Amado James MD Work Phone: 4(117)217-925330 [place] [address] 02-10-2025 21:00-0400 Inhaled oxygen flow rate 35 L/min Dr. Amado James MD Work Phone: 5(904)384-364730 [place] [address] 02-05-2025 15:16-0400 Body temperature 97.1 [degF] Dr. Amado James MD Work Phone: 4(595)163-637430 [place] [address] 02-05-2025 15:16-0400 Diastolic blood pressure 60 mm[Hg] Dr. Amado James MD Work Phone: 8(148)546-423130 [place] [address] 02-05-2025 15:16-0400 Heart rate 91 /min Dr. Amado James MD Work Phone: 0(027)439-647030 [place] [address] 02-05-2025 15:16-0400 Inhaled oxygen concentration 60 % Dr. Amado James MD Work Phone: 2(297)059-484130 [place] [address] 02-05-2025 15:16-0400 Respiratory rate 29 /min Dr. Amado James MD Work Phone: 7(887)298-740630 [place] [address] 02-05-2025 15:16-0400 SaO2% (BldA) [Mass fraction] 100 % Dr. Amado James MD Work Phone: 4(583)807-992930 [place] [address] 02-05-2025 15:16-0400 Systolic blood pressure 141 mm[Hg] Dr. Amado James MD Work Phone: 6(504)361-359630 [place] [address] 02-05-2025 13:36-0400 Inhaled oxygen flow rate 6 L/min Dr. Amado James MD Work Phone: 3(280)254-269740 [place] [address] 02-05-2025 09:46-0400 Body height 160.[address] Amado James MD Work Phone: 3(886)462-328330 [place] [address] 02-05-2025 09:46-0400 Body mass index (BMI) [Ratio] 20.6 kg/m2 Dr. Amado James MD Work Phone: 9(537)529-400430 [place] [address] 02-05-2025 09:46-0400 Body weight 52.[address] Amado James MD Work Phone: 3(935)012-636030 [place] [address] 01-29-2025 07:34-0400 Body mass index (BMI) [Ratio] 42.1 kg/m2 Dr. Amado James MD Work Phone: 7(627)356-914430 [place] [address] 01-29-2025 07:34-0400 Body weight 118.[address] Amado James MD Work Phone: 6(310)433-330430 [place] [address] 01-29-2025 07:34-0400 Diastolic blood pressure 65 mm[Hg] Dr. Amado James MD Work Phone: 5(299)260-383940 [place] [address] 01-29-2025 07:34-0400 Heart rate 68 /min Dr. Amado James MD Work Phone: 1(068)765-536540 [place] [address] 01-29-2025 07:34-0400 Respiratory rate 18 /min Dr. Amado James MD Work Phone: 7(710)596-715940 [place] [address] 01-29-2025 07:34-0400 SaO2% (BldA) [Mass fraction] 94 % Dr. Amado James MD Work Phone: 5(713)655-169730 [place] [address] 01-29-2025 07:34-0400 Systolic blood pressure 124 mm[Hg] Dr. Amado James MD Work Phone: 8(254)134-810279 [address] 11-27-2024 13:54-0500 Body weight 109.77 kg Rufina Soares APRN.CNP Work Phone: [facility] 11-27-2024 13:54-0500 Diastolic blood pressure 80 mm[Hg] Rufina Marshahof PLANT PROTECTION OFFICER.SIGNAL INTELLIGENCE ANALYST Work Phone: [facility] 11-27-2024 13:54-0500 Heart rate 65 /min Rufina Marshahof PLANT PROTECTION OFFICER.SIGNAL INTELLIGENCE ANALYST Work Phone: [facility] 11-27-2024 13:54-0500 Respiratory rate 16 /min Rufina Marshahof PLANT PROTECTION OFFICER.SIGNAL INTELLIGENCE ANALYST Work Phone: [facility] 11-27-2024 13:54-0500 SaO2% (BldA) [Mass fraction] 96 % Rufinasharon Larsonhof PLANT PROTECTION OFFICER.SIGNAL INTELLIGENCE ANALYST Work Phone: [facility] 11-27-2024 13:54-0500 Systolic blood pressure 126 mm[Hg] Rufinasharon Larsonhof PLANT PROTECTION OFFICER.SIGNAL INTELLIGENCE ANALYST Work Phone: [facility] 11-23-2024 08:50-0500 Body mass index (BMI) [Ratio] 42.7 kg/m2 Dr. Amado James MD Work Phone: 1(717)586-588240 [place] [address] 11-23-2024 08:50-0500 Body temperature 97.9 [degF] Dr. Amado James MD Work Phone: 8(670)769-210040 [place] [address] 11-23-2024 08:50-0500 Diastolic blood pressure 66 mm[Hg] Dr. Amado James MD Work Phone: [facility] 11-23-2024 08:50-0500 Heart rate 76 /min Dr. Amado James MD Work Phone: [facility] 11-23-2024 08:50-0500 Respiratory rate 22 /min Dr. Amado James MD Work Phone: [facility] 11-23-2024 08:50-0500 Systolic blood pressure 144 mm[Hg] Dr. Amado James MD Work Phone: [facility] 10-28-2024 00:57-0500 Body weight 120.[address] Amado James MD Work Phone: 8(346)425-994130 [place] [address] 10-26-2024 08:38-0500 Body mass index (BMI) [Ratio] 42.7 kg/m2 Dr. Amado James MD Work Phone: 3(938)921-187530 [place] [address] 10-26-2024 08:38-0500 Body temperature 97.6 [degF] Dr. Amado James MD Work Phone: 6(078)444-759330 [place] [address] 10-26-2024 08:38-0500 Diastolic blood pressure 50 mm[Hg] Dr. Amado James MD Work Phone: 1(740)068-167130 [place] [address] 10-26-2024 08:38-0500 Heart rate 69 /min Dr. Amado James MD Work Phone: 5(518)412-282030 [place] [address] 10-26-2024 08:38-0500 Respiratory rate 22 /min Dr. Amado James MD Work Phone: 4(310)892-292130 [place] [address] 10-26-2024 08:38-0500 Systolic blood pressure 113 mm[Hg] Dr. Amado James MD Work Phone: 1(703)204-725930 [place] [address] 09-27-2024 00:36-0500 Body weight 120.[address] Amado James MD Work Phone: [facility] 09-26-2024 09:30-0500 Body weight 110.3 kg Amado James MD Work Phone: [facility] 09-26-2024 09:30-0500 Diastolic blood pressure 60 mm[Hg] Amado James MD Work Phone: [facility] 09-26-2024 09:30-0500 Heart rate 76 /min Amado James MD Work Phone: [facility] 09-26-2024 09:30-0500 Respiratory rate 20 /min Amado James MD Work Phone: [facility] 09-26-2024 09:30-0500 Systolic blood pressure 108 mm[Hg] Amado James MD Work Phone: [facility] 08-28-2024 13:35-0500 Body weight 113 kg Rufina Tannhof PLANT PROTECTION OFFICER.SIGNAL INTELLIGENCE ANALYST Work Phone: [facility] 08-28-2024 13:35-0500 Diastolic blood pressure 60 mm[Hg] Rufina Tannhof PLANT PROTECTION OFFICER.SIGNAL INTELLIGENCE ANALYST Work Phone: [facility] 08-28-2024 13:35-0500 Heart rate 70 /min Rufina Tannhof PLANT PROTECTION OFFICER.SIGNAL INTELLIGENCE ANALYST Work Phone: [facility] 08-28-2024 13:35-0500 Respiratory rate 16 /min Rufina Tannhof PLANT PROTECTION OFFICER.SIGNAL INTELLIGENCE ANALYST Work Phone: [facility] 08-28-2024 13:35-0500 SaO2% (BldA) [Mass fraction] 96 % Rufina Tannhof PLANT PROTECTION OFFICER.SIGNAL INTELLIGENCE ANALYST Work Phone: [facility] 08-28-2024 13:35-0500 Systolic blood pressure 128 mm[Hg] Rufina Tannhof PLANT PROTECTION OFFICER.SIGNAL INTELLIGENCE ANALYST Work Phone: [facility] 07-11-2024 16:22-0400 Diastolic blood pressure 80 mm[Hg] Amado James MD Work Phone: [facility] 07-11-2024 16:22-0400 Systolic blood pressure 136 mm[Hg] Amado James MD Work Phone: [facility] 07-11-2024 16:16-0400 Body weight 124.2 kg Amado James MD Work Phone: [facility] 07-11-2024 16:16-0400 Heart rate 76 /min Amado James MD Work Phone: [facility] 07-11-2024 16:16-0400 Respiratory rate 20 /min Amado James MD Work Phone: [facility] 07-11-2024 16:16-0400 SaO2% (BldA) [Mass fraction] 99 % Amado James MD Work Phone: [facility] 05-06-2024 08:43-0400 Body weight 119 kg Amado James MD Work Phone: [facility] 05-06-2024 08:43-0400 Diastolic blood pressure 64 mm[Hg] Amado James MD Work Phone: [facility] 05-06-2024 08:43-0400 Heart rate 68 /min Amado James MD Work Phone: [facility] 05-06-2024 08:43-0400 Respiratory rate 16 /min Amado James MD Work Phone: [facility] 05-06-2024 08:43-0400 SaO2% (BldA) [Mass fraction] 99 % Amado James MD Work Phone: [facility] 05-06-2024 08:43-0400 Systolic blood pressure 97 mm[Hg] Amado James MD Work Phone: [facility] 04-10-2024 18:07-0400 Body weight 120.02 kg Amado James MD Work Phone: [facility] 04-10-2024 18:07-0400 Diastolic blood pressure 80 mm[Hg] Amado James MD Work Phone: [facility] 04-10-2024 18:07-0400 Heart rate 74 /min Amado James MD Work Phone: [facility] 04-10-2024 18:07-0400 Respiratory rate 16 /min Amado James MD Work Phone: [facility] 04-10-2024 18:07-0400 Systolic blood pressure 140 mm[Hg] Amado James MD Work Phone: [facility] 06-17-2023 15:24-0400 Body height 165.[address] Amado James Work Phone: [facility] 06-17-2023 15:24-0400 Body mass index (BMI) [Ratio] 41.9 kg/m2 Dr. Amado James Work Phone: [facility] 06-17-2023 15:24-0400 Body weight 114.[address] Amado James Work Phone: [facility] 06-17-2023 15:24-0400 Diastolic blood pressure 69 mm[Hg] Dr. Amado James Work Phone: [facility] 06-17-2023 15:24-0400 Heart rate 71 /min Dr. Amado James Work Phone: [facility] 06-17-2023 15:24-0400 Respiratory rate 22 /min Dr. Amado James Work Phone: [facility] 06-17-2023 15:24-0400 SaO2% (BldA) [Mass fraction] 94 % Dr. Amado James Work Phone: [facility] 06-17-2023 15:24-0400 Systolic blood pressure 161 mm[Hg] Dr. Amado James Work Phone: [facility] 04-15-2023 15:40-0400 Body weight 116.57 kg Amado James MD Work Phone: [facility] 04-15-2023 15:40-0400 Diastolic blood pressure 70 mm[Hg] Amado James MD Work Phone: [facility] 04-15-2023 15:40-0400 Heart rate 70 /min Amado James MD Work Phone: [facility] 04-15-2023 15:40-0400 Respiratory rate 20 /min Amado James MD Work Phone: [facility] 04-15-2023 15:40-0400 Systolic blood pressure 128 mm[Hg] Amado James MD Work Phone: [facility] 07-13-2022 15:42-0400 Body weight 114.31 kg Amado James MD Work Phone: [facility] 07-13-2022 15:42-0400 Diastolic blood pressure 80 mm[Hg] Amado James MD Work Phone: [facility] 07-13-2022 15:42-0400 Heart rate 64 /min Amado James MD Work Phone: [facility] 07-13-2022 15:42-0400 Respiratory rate 20 /min Amado James MD Work Phone: [facility] 07-13-2022 15:42-0400 Systolic blood pressure 124 mm[Hg] Amado James MD Work Phone: [facility] 06-03-2022 10:21-0400 Diastolic blood pressure 47 mm[Hg] Dr. Amado James Work Phone: [facility] Work Phone: 06-03-2022 10:21-0400 Systolic blood pressure 102 mm[Hg] Dr. Amado James Work Phone: [facility] Work Phone: 06-03-2022 09:06-0400 Body height 165.[address] Amado James Work Phone: [facility] Work Phone: 06-03-2022 09:06-0400 Body mass index (BMI) [Ratio] 42.5 kg/m2 Dr. Amado James Work Phone: [facility] Work Phone: 06-03-2022 09:06-0400 Body weight 116.[address] Amado James Work Phone: [facility] Work Phone: 06-03-2022 09:06-0400 Heart rate 68 /min Dr. Amado James Work Phone: [facility] Work Phone: 06-03-2022 09:06-0400 Respiratory rate 18 /min Dr. Amado James Work Phone: [facility] Work Phone: 06-03-2022 09:06-0400 SaO2% (BldA) [Mass fraction] 96 % Dr. Amado James Work Phone: [facility] Work Phone: 04-07-2022 15:22-0400 Body weight 118.39 kg Amado James MD Work Phone: [facility] 04-07-2022 15:22-0400 Diastolic blood pressure 68 mm[Hg] Amado James MD Work Phone: [facility] 04-07-2022 15:22-0400 Heart rate 78 /min Amado James MD Work Phone: [facility] 04-07-2022 15:22-0400 Respiratory rate 20 /min Amado James MD Work Phone: [facility] 04-07-2022 15:22-0400 Systolic blood pressure 126 mm[Hg] Amado James MD Work Phone: [facility] 02-26-2022 15:19-0400 SaO2% (BldA) [Mass fraction] 94 % Dr. Amado James Work Phone: [facility] Work Phone: 02-26-2022 15:18-0400 Inhaled oxygen flow rate 1 L/min Dr. Amado James Work Phone: [facility] Work Phone: 02-26-2022 15:15-0400 Body temperature 97.6 [degF] Dr. Amado James Work Phone: [facility] Work Phone: 02-26-2022 15:15-0400 Diastolic blood pressure 54 mm[Hg] Dr. Amado James Work Phone: [facility] Work Phone: 02-26-2022 15:15-0400 Heart rate 65 /min Dr. Amado James Work Phone: [facility] Work Phone: 02-26-2022 15:15-0400 Respiratory rate 18 /min Dr. Amado James Work Phone: [facility] Work Phone: 02-26-2022 15:15-0400 Systolic blood pressure 113 mm[Hg] Dr. Amado James Work Phone: [facility] Work Phone: 02-26-2022 14:30-0400 Body height 165.[address] Amado James Work Phone: [facility] Work Phone: 02-26-2022 14:30-0400 Body weight 126.[address] Amado James Work Phone: [facility] Work Phone: 02-23-2022 23:05-0400 Inhaled oxygen concentration 30 % Dr. Amado James Work Phone: [facility] Work Phone: 02-23-2022 05:44-0400 Body mass index (BMI) [Ratio] 46.2 kg/m2 Dr. Amado James Work Phone: [facility] Work Phone: 02-22-2022 12:25-0400 Body temperature 97.2 [degF] Dr. Amado James Work Phone: [facility] Work Phone: 02-22-2022 12:25-0400 Diastolic blood pressure 97 mm[Hg] Dr. Amado James Work Phone: [facility] Work Phone: 02-22-2022 12:25-0400 Heart rate 95 /min Dr. Amado James Work Phone: [facility] Work Phone: 02-22-2022 12:25-0400 Respiratory rate 32 /min Dr. Amado James Work Phone: [facility] Work Phone: 02-22-2022 12:25-0400 SaO2% (BldA) [Mass fraction] 96 % Dr. Amado James Work Phone: [facility] Work Phone: 02-22-2022 12:25-0400 Systolic blood pressure 183 mm[Hg] Dr. Amado James Work Phone: [facility] Work Phone: 02-22-2022 08:18-0400 Body height 166.[address] Amado James Work Phone: [facility] Work Phone: 02-22-2022 08:18-0400 Body mass index (BMI) [Ratio] 47 kg/m2 Dr. Amado James Work Phone: [facility] Work Phone: 02-22-2022 08:18-0400 Body weight 130.[address] Amado James Work Phone: [facility] Work Phone: Encounters Encounter Date Encounter Type Care Provider Facility Start: 08-03-2025 ambulatory Alexis SHEPPARD Faci lity:[facility] Start: 08-01-2025 ambulatory Alexis Baird OLS Faci lity:[facility] Start: 07-31-2025 ambulatory Amado James Facilit y:[facility] Start: 07-16-2025 ambulatory Amado James Facilit y:[facility] Start: 07-04-2025 End: 07-06-2025 Evaluation and management of inpatient [facility] Comment on above: ESRD (end stage jeanne l disease) on dialysis (HCC) (Primary Dx) Start: 07-04-2025 End: 07-04-2025 Subsequent hospital visit by physician Bret Ir Exam Room 1 [facility] Comment on above: Dialysis complicatio n, subsequent encounter Start: 07-04-2025 End: 07-04-2025 ambulatory [facility] Start: 07-03-2025 End: 07-03-2025 Emergency department patient visit Gerardo Felder MD Work Phone: [facility] Comment on above: Dialysis complicatio n, subsequent encounter Start: 07-02-2025 End: 07-02-2025 Emergency department patient visit Klever Rand DO Work Phone: [facility] Comment on above: Dialysis complicatio n, initial encounter (Primary Dx) Start: 06-27-2025 ambulatory Amado James Facilit y:[facility] Start: 06-01-2025 End: 06-21-2025 Evaluation and management of inpatient Omid Orona MD Work Phone: [facility] Intensive Care Unit ICU 2 Start: 06-01-2025 ambulatory Sharyn Balderas kirti OLS Facility:[facility] Start: 04-05-2025 End: 04-05-2025 ambulatory BISHNU SALAMANCA APRN-SIGNAL INTELLIGENCE ANALYST Facility:A Start: 03-22-2025 End: 03-26-2025 ambulatory JAS RAMIREZ MD Facility:A Start: 03-22-2025 End: 03-26-2025 ambulatory JAS RAMIREZ MD Facility:A Start: 03-21-2025 End: 03-21-2025 ambulatory JANAE ZARCO MD Facility:A Start: 03-12-2025 ambulatory Janusz Reaves Facility :[facility] Start: 03-07-2025 End: 04-18-2025 ambulatory EMERY SAGE MD Facility:A Start: 02-12-[address] Amado mccracken MD Work Phone: [facility] Work Phone: Start: 02-12-2025 Non-patient / Non-visit Dr. Edison MOLINA [facility] Start: 02-11-2025 Non-patient / Non-visit Dr. Mcdonald Of raffy MOLINA [facility] Start: 02-10-2025 Non-patient / Non-visit [facility]cd[facility] Start: 02-09-2025 Non-patient / Non-visit [facility] Mcdonald [facility] Start: 02-09-2025 Non-patient / Non-visit Dr. Paris Cardona MD [facility] Work Phone: Start: 02-09-2025 Non-patient / Non-visit Dr. Jose Hull own [facility] Start: 02-08-2025 Non-patient / Non-visit Dr. Milly Gilbert MD [facility] Start: 02-08-2025 Non-patient / Non-visit Dr. Jose Hull own [facility] Start: 02-08-2025 Non-patient / Non-visit Dr. Zachery Gomez MD -[facility] Work Phone: Start: 02-07-2025 Non-patient / Non-visit Dr. Kalyn Cardona MD [facility] Start: 02-06-2025 ambulatory Harry Stallings Facility:[facility] Start: 02-06-2025 Non-patient / Non-visit [facility]. Hogan [facility] Start: 02-06-2025 Non-patient / Non-visit Dr. Zachery Gomez MD [facility] Work Phone: Start: 02-05-2025 Non-patient / Non-visit Dr. Kalyn Cardona MD [facility] Start: 02-05-2025 Non-patient / Non-visit Dr. Zachery Gomez MD [facility] Work Phone: Start: 02-05-2025 ambulatory Zachery Gomez Facility: [facility] Start: 02-05-2025 End: 03-07-2025 Evaluation and management of inpatient Dr. Zachery Gomez MD -Intensive Care Unit Work Phone: Start: 01-29-2025 End: 01-29-[address] Amado James MD Work Phone: [facility] Work Phone: Start: 01-29-2025 End: 01-29-2025 Patient encounter procedure Janusz SEARS -Laboratory Work Phone: Start: 01-29-2025 End: 01-29-2025 Patient encounter procedure Janusz SEARS -[facility] Work Phone: Start: 01-29-2025 End: 01-29-2025 ambulatory Janusz Demiter Facility:[facility] Start: 01-29-2025 End: 01-29-2025 ambulatory Janusz [facility] Facility:[facility] Start: 12-19-2024 End: 02-18-2025 Follow-up encounter Amado James MD Work Phone: [facility] Start: 12-18-2024 End: 12-18-2024 ambulatory AMADO JAMES Facility:[facility] Start: 11-27-2024 End: 11-27-2024 Office outpatient visit 25 minutes Rufina Soares PLANT PROTECTION OFFICER.SIGNAL INTELLIGENCE ANALYST Work Phone: [facility] Comment on above: Type 2 diabetes linda itus with chronic kidney disease, with long-term current use of insulin, unspecified CKD stage (HCC) (Primary Dx); Essential hypertension, benign; Hyperlipidemia, unspecified hyperlipidemia type; Chronic kidney disease, stage 4 (severe) (HCC) Start: 11-27-2024 End: 11-27-2024 ambulatory RUFINA SOARES Facility:[facility] Start: 11-23-2024 End: 11-24-2024 [facility] Start: 11-23-2024 End: 11-24-2024 Discharged Recurring Leyda Erwin DPM -[facility]ound [facility] Work Phone: Start: 11-14-2024 End: 11-14-2024 Telephone encounter Amado James MD Work Phone: [facility] Comment on above: POC update Start: 11-08-2024 End: 11-08-2024 Refill Amado James MD Work Phone: [address] [place] [address] Comment on above: Refill Request Start: 10-26-2024 End: 10-27-2024 [facility]ulatory [facility] Start: 10-26-2024 End: 10-27-2024 Discharged Recurring Leyda Erwin DPIain -Wound Healing [address] Work Phone: Start: 10-20-2024 End: 10-20-2024 Telephone encounter Amado James MD [facility] Comment on above: Clinical Update (re- cert for ) Start: 10-06-2024 End: 10-09-2024 ambulatory Jessica Mckinnon MA [facility] Start: 10-06-2024 End: 10-09-2024 Patient encounter procedure Jessica Mckinnon MA [facility] Comment on above: [facility] Start: 09-29-2024 End: 09-29-2024 Telephone encounter Amado James MD Work Phone: [facility] Comment on above: Patient Update Start: 09-26-2024 End: 09-26-2024 ambulatory AMADO JAMES Facility:[facility] Start: 09-26-2024 End: 09-26-2024 Patient encounter procedure Amado James MD Work Phone: [facility] Comment on above: Type 2 [...] Telephone encounter Amado James MD Work Phone: [facility] Comment on above: Care Home Cont inued Plan of Care Start: 09-14-2024 End: 09-26-2024 ambulatory [facility] Facility:[facility] Start: 09-11-2024 End: 09-13-2024 Telephone encounter Amado James MD Work Phone: [facility] Comment on above: Patient Update (Bloo d Sugars) Start: 09-08-2024 End: 09-08-2024 Telephone encounter Amado James MD Work Phone: [facility] Comment on above: Orders (HH visit) Start: 09-04-2024 End: 09-04-2024 Telephone encounter Amado James MD Work Phone: [facility] Comment on above: Orders Start: 09-01-2024 End: 09-04-2024 Telephone encounter Rufina Soares APRN.SIGNAL INTELLIGENCE ANALYST Work Phone: [facility] Start: 08-31-2024 End: 08-31-2024 ambulatory AMADO JAMES Facility:[facility] Start: 08-30-2024 End: 08-31-2024 Telephone encounter Amado James MD Work Phone: [facility] Comment on above: OT plan of care Start: 08-29-2024 End: 08-29-2024 Telephone encounter Amado James MD Work Phone: [facility] Comment on above: Physical Therapy Kathy n of Care Start: 08-28-2024 End: 08-28-2024 Patient encounter procedure Rufina Soares APRN.SIGNAL INTELLIGENCE ANALYST Work Phone: [facility] Comment on above: Hospital discharge f ollow-up (Primary Dx); Type 2 diabetes mellitus with hypoglycaemia without coma (HCC); CKD (chronic kidney disease) stage 4, GFR 15-29 ml/min (HCC); Chronic anemia; Chronic heart failure with preserved ejection fraction (HCC) Start: 08-28-2024 End: 08-28-2024 ambulatory RUFINA SOARES Facility:[facility] Start: 08-25-2024 End: 08-25-2024 Patient Outreach Mariza Graham MA [facility] Comment on above: Transition Of Care Start: 08-22-2024 End: 08-22-2024 Telephone encounter Amado James MD Work Phone: [facility] Comment on above: verbal orders Start: 08-21-2024 ambulatory Eduardo Figueroa Facility:[facility] Start: 08-19-2024 ambulatory Oscar Poole Facili ty:[facility] Start: 08-19-2024 End: 08-22-2024 Evaluation and management of inpatient Oscar Poole Facility:[facility] Start: 08-18-2024 End: 08-18-2024 Telephone encounter Amado James MD Work Phone: [facility] Comment on above: home health calling Start: 08-17-2024 End: 08-26-2024 ambulatory Amado James Facility:[facility] Start: 08-16-2024 End: 08-16-2024 ambulatory Miguel SHEPPARD Facility:[facility] Start: 08-11-2024 ambulatory Lea Loza Facility:[facility] Start: 07-13-2024 End: 07-13-2024 Telephone encounter Amado James MD Work Phone: [facility] Comment on above: Medication Problem Start: 07-12-2024 End: 07-12-2024 Refill Amado James MD Work Phone: [facility] Comment on above: Refill Request Start: 07-11-2024 End: 07-11-2024 ambulatory AMADO JAMES Facility:[facility] Start: 07-11-2024 End: 07-11-2024 Patient encounter procedure Amado James MD Work Phone: [facility] Comment on above: Encounter for annual wellness exam in Medicare patient (Primary Dx); Type 2 diabetes mellitus with chronic kidney disease, with long-term current use of insulin, unspecified CKD stage ([facility]); Essential hypertension, benign; Hyperlipidemia, unspecified hyperlipidemia type; Chronic kidney disease, stage 4 (severe) ([facility]); Heart failure, unspecified HF chronicity, unspecified heart failure type ([facility]); Bilateral leg edema; Diabetic ulcer of right midfoot associated with type 2 diabetes mellitus, unspecified ulcer stage ([facility]); Other depression; Anemia, unspecified type; Morbid obesity with body mass index of 40.0-44.9 in adult ([facility]) Start: 06-16-2024 End: 06-16-2024 Telephone encounter Amado James MD Work Phone: [facility] Comment on above: Fax Last OV Note Start: 06-06-2024 End: 06-06-2024 Refill Amado James MD Work Phone: [facility] Comment on above: Refill Request Start: 06-05-2024 End: 06-05-2024 Telephone encounter Amado James MD Work Phone: [facility] Comment on above: Opened In Error Start: 06-02-2024 End: 06-02-2024 Telephone encounter Amado James MD Work Phone: [facility] Comment on above: Fax Request Start: 05-06-2024 End: 05-06-2024 ambulatory AMADO JAMES Facility:[facility] Start: 05-06-2024 End: 05-06-2024 Patient encounter procedure Amado James MD Work Phone: [facility] Comment on above: 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 2 diabetes mellitus, unspecified ulcer stage (HCC) (Primary Dx); Morbid obesity with body mass index of 40.0-44.9 in adult (HCC); Essential hypertension, benign; Type 2 diabetes mellitus with chronic kidney disease, with long-term current use of insulin, unspecified CKD stage (HCC) Start: 05-03-2024 ambulatory [facility] [place] Start: 05-03-2024 Patient encounter [facility] [place] Comment on above: Population Health Na vigation Outreach ([facility]) Start: 04-18-2024 Telephone encounter Amado auguste MD Work Phone: [facility] Comment on above: Results Start: 04-15-2024 End: 04-15-2024 ambulatory AMADO JAMES Facility:[facility] Start: 04-10-2024 End: 04-10-2024 ambulatory AMADO JAMES Facility:[facility] Start: 04-10-2024 End: 04-10-2024 Patient encounter procedure Amado James MD Work Phone: [facility] Comment on above: Hyperlipidemia, unsp ecified hyperlipidemia type (Primary Dx); Chronic kidney disease, stage 4 (severe) (HCC); Heart failure, unspecified HF chronicity, unspecified heart failure type (HCC); Morbid obesity with body mass index of 40.0-44.9 in adult ([facility]); Type 2 diabetes mellitus with stage 3b chronic kidney disease, without long-term current use of insulin ([facility]); Essential hypertension, benign; Anemia, unspecified type; Bilateral leg edema; Cellulitis of skin; Other depression Start: 04-04-2024 Telephone encounter Maciel Perry perez KHAN Work Phone: [facility] Comment on above: Appointment Start: 02-28-2024 ambulatory Jessica Mckinnon MA [facility] Start: 02-28-2024 Patient encounter procedure Jessica Mckinnon MA [facility] Comment on above: Population Health Na vigation Outreach ([facility] [employer] workbenc - AW[facility], Care gaps, HCC gap closure - [facility]) Start: 02-22-2024 Refill Amado zayas MD Work Phone: [facility] Comment on above: Refill Request Start: 01-20-2024 Refill Amado zayas MD Work Phone: [facility] Comment on above: Refill Request Start: 01-18-2024 ambulatory Jessica José Miguel Mckinnon MA [facility] Start: 01-18-2024 Patient encounter procedure Jessica Mckinnon MA [facility] Comment on above: Population Health Na vigation Outreach (Nadeen TIJERINA Roster workbench - AWV, Care gaps, HCC gap closure - [facility]) Start: 01-13-2024 Refill Amado zayas MD Work Phone: [facility] Comment on above: Refill Request Start: 12-02-2023 Refill Amado zayas MD Work Phone: [facility] Comment on above: Refill Request Start: 11-26-2023 ambulatory Amado zayas MD Work Phone: [facility] Comment on above: Allied Health Visit (Medication Adherence Outreach ) Start: 06-25-2023 End: 06-25-[address] Amado James Work Phone: [facility] Work Phone: Start: 06-25-2023 End: 06-25-[address] Amado James Work Phone: [facility] Work Phone: Start: 06-21-2023 Telephone encounter Macielcarlos Huangyoandy todd APRN.SIGNAL INTELLIGENCE ANALYST Work Phone: [facility] Comment on above: Results Start: 06-17-2023 End: 06-17-[address] Amaod James Work Phone: [facility] Work Phone: Start: 06-17-2023 End: 06-17-2023 Patient encounter procedure Dr. Amado James Work Phone: [facility] Work Phone: Start: 06-14-2023 Refill Amado zayas MD Work Phone: [facility] Comment on above: Refill Request Start: 04-15-2023 End: 04-15-2023 Patient encounter procedure Amado James MD Work Phone: [facility] Comment on above: 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, without long-term current use of insulin ([facility]) (Primary Dx); Essential hypertension, benign; Hyperlipidemia, unspecified hyperlipidemia type; Chronic kidney disease, stage 4 (severe) ([facility]); Congestive heart failure, unspecified HF chronicity, unspecified heart failure type ([facility]); Bilateral leg edema; H/O: GI bleed; Anemia, unspecified type; Skin lesion; Morbid obesity with body mass index of 40.0-44.9 in adult ([facility]) Start: 02-24-2023 ambulatory Amado zayas MD Work Phone: Internal Medicine [facility] Start: 01-25-2023 ambulatory Samia Hickman [employer] Comment on above: Population Health Na vigation Outreach ([facility]) Start: 01-18-2023 Telephone encounter Amado auguste MD Work Phone: Family [facility] Comment on above: Medication Problem Start: 12-23-2022 ambulatory Amado zayas MD Work Phone: [facility] Comment on above: Allied Health Visit (Medication Adherence Outreach/) Start: 12-14-2022 Refill Amado zayas MD Work Phone: Family [facility] Comment on above: Refill Request Start: 10-30-2022 Telephone encounter Amado auguste MD Work Phone: [facility] Comment on above: Medication Problem Start: 07-15-2022 Refill Amado zayas MD Work Phone: [facility] Comment on above: Refill Request Start: 07-14-2022 Refill Amado zayas MD Work Phone: [facility] Comment on above: Refill Request Start: 07-13-2022 End: 07-13-2022 Patient encounter procedure Amado James MD Work Phone: [facility] Comment on above: Controlled type 2 di [...] / Non-visit Dr. Breezy James Work Phone: [facility] Start: 06-17-2022 End: 06-17-[address] Amado James Work Phone: [facility] Work Phone: Start: 06-17-2022 End: 06-17-[address] Amado James Work Phone: [facility] Start: 06-03-2022 End: 06-03-[address] Amado James Work Phone: [facility] Work Phone: Start: 06-03-2022 End: 06-03-[address] Amado James Work Phone: [facility] Start: 04-07-2022 End: 04-07-2022 Patient encounter procedure Amado James MD Work Phone: [facility] Comment on above: Controlled type 2 di abetes mellitus without complication, with long-term current use of insulin (HCC) (Primary Dx); Essential hypertension, benign; Stage 3b chronic kidney disease (HCC); Hyperlipidemia, unspecified hyperlipidemia type; Congestive heart failure, unspecified HF chronicity, unspecified heart failure type (HCC); Bilateral leg edema; SOB (shortness of breath); Anemia, unspecified type; H/O: GI bleed Start: 03-16-2022 ambulatory Samia Lear Yangate C [employer] Comment on above: Population Health Na vigation Outreach ([facility]) Start: 03-04-2022 ambulatory Amado zayas MD Work Phone: Internal Medicine [facility] [place] Start: 03-02-2022 End: 03-02-[address] Amado James Work Phone: [facility] Start: 02-26-2022 Non-patient / Non-visit Dr. Breezy James Work Phone: [facility] Start: 02-25-2022 Non-patient / Non-visit Dr. Breezy James Work Phone: [facility] Start: 02-25-2022 Non-patient / Non-visit Dr. Breezy James Work Phone: [facility] Start: 02-24-2022 Non-patient / Non-visit Dr. Breezy James Work Phone: [facility] Start: 02-23-2022 Non-patient / Non-visit Dr. Breezy James Work Phone: [facility] Start: 02-23-2022 Non-patient / Non-visit Dr. Breezy James Work Phone: [facility] Start: 02-22-2022 Non-patient / Non-visit Dr. Breezy James Work Phone: [facility] Start: 02-22-2022 End: 02-26-2022 Evaluation and management of inpatient Dr. Amado James Work Phone: [facility] Start: 02-22-2022 Non-patient / Non-visit Dr. Breezy James Work Phone: [facility] Procedures Date Procedure Procedure Detail [...] Start: 07-05-2025 Comprehensive metabolic panel Peter mcgowan PLANT PROTECTION OFFICER - SIGNAL INTELLIGENCE ANALYST Work Phone: Start: 07-04-2025 Glucose quantitative blood [...] of thyroid stimulating hormone tsh Diana Zabala PLANT PROTECTION OFFICER - SIGNAL INTELLIGENCE ANALYST Work Phone: Start: 06-14-2025 Ecg routine ecg w/least 12 lds trcg only w/o i&r Diana Eduardtaylor PLANT PROTECTION OFFICER - SIGNAL INTELLIGENCE ANALYST Work Phone: Start: 06-14-2025 IR CVC TUNNELED [...] CVC TUNNELED DIALYSIS CATHETER PLACEMENT Mi Singh PLANT PROTECTION OFFICER - SIGNAL INTELLIGENCE ANALYST Work Phone: Start: 06-12-2025 End: 06-12-2025 Comprehensive [...] FELDER Comment on above: Performed By: #### [id number] ####Medical Di jennifer: NATALIE GARCIA ([id number])[facility]OD [facility] ([facility])[address] Start: 06-10-2025 Blood typing serologic abo Tomy [...] Work Phone: Start: 06-08-2025 Hemodialysis Mi Singh PLANT PROTECTION OFFICER - SIGNAL INTELLIGENCE ANALYST Work Phone: Start: 06-08-2025 Insj non-tunneled central [...] src gram/giemsa stain bct fungi/cell Neelima Hanks PLANT PROTECTION OFFICER - SIGNAL INTELLIGENCE ANALYST Work Phone: Start: 06-06-2025 Glucose quantitative blood [...] FELDER Comment on above: Performed By: #### [id number] ####Medical Di jennifer: NATALIE GARCIA ([id number])[facility] BLOOD [facility] ([facility])[address] Start: 06-06-2025 Blood typing serologic abo [...] Hepatitis b surf antibody hbsab Mi alonzo PLANT PROTECTION OFFICER - [facility] Work Phone: Start: 06-02-2025 Iaad ia hepatitis b surface antigen Mi Singh PLANT PROTECTION OFFICER - [facility] Work Phone: Start: 06-02-2025 Glucose quantitative [...] FELDER Comment on above: Performed By: #### [id number] ####Medical Di jennifer: NATALIE GARCIA ([id number])[facility] ([facility])[address] Start: 06-01-2025 ABO and Rh group [...] stent placement Janusz SEARS Comment on above: [id number] LAD w/ 3.0 x 24 mm Promus [...] Author Start: 07-06-2026 Creatinine measurement Creatinine Level [facility] Start: 07-06-2026 Potassium measurement Potassium Level [facility] Start: 07-05-2026 Creatinine measurement Creatinine Level [facility] Start: 07-05-2026 Potassium measurement Potassium Level [facility] Start: 07-03-2026 Creatinine measurement Creatinine Level [facility] Start: 07-03-2026 Potassium measurement Potassium Level [facility] Start: 07-02-2026 Creatinine measurement Creatinine Level [facility] Start: 07-02-2026 Potassium measurement Potassium Level [facility] Start: 06-21-2026 Creatinine measurement [facility] Start: 06-21-2026 Potassium measurement [facility] Start: 12-18-2025 Complete blood count Hemoglobin/Hematocrit [facility] Start: 12-18-2025 Creatinine measurement Serum Creatinine [facility] Start: 12-18-2025 Hepatitis B surface antibody level LDL Cholesterol [facility] Start: 11-27-2025 Annual PCP Team Chronic Disease Visit Annual PCP Team Chronic Disease Visit [facility] Start: 09-26-2025 Annual PCP Team Chronic Disease Visit Annual PCP Team Chronic Disease Visit [facility] Start: 09-26-2025 BP Controlled (<130/80) BP Controlled (<130/80) [facility] Start: 08-31-2025 Complete blood count Hemoglobin/Hematocrit [facility] Start: 08-31-2025 Creatinine measurement Serum Creatinine [facility] Start: 08-31-2025 Hepatitis B surface antibody level LDL Cholesterol [facility] Start: 08-28-2025 Annual PCP Team Chronic Disease Visit Annual PCP Team Chronic Disease Visit [facility] Start: 08-28-2025 BP Controlled (<130/80) BP Controlled (<130/80) [facility] Start: 07-11-2025 Annual PCP Team Chronic Disease Visit Annual PCP Team Chronic Disease Visit [facility] Start: 07-11-2025 Covid-19 Vaccine ( season) Covid-19 Vaccine ( season) [facility] Comment on above: Postponed from 05/28/2024 (Declined at t his time) Start: 07-11-2025 Pneumococcal Vaccine: 50+ (3 of 3 - PCV20 or PCV21) Pneumococcal Vaccine: 50+ (3 of 3 - PCV20 or PCV21) [facility] Comment on above: Postponed from 10/25/2019 (Declined at t his time) Start: 07-11-2025 Pneumococcal Vaccine: 65+ (3 of 3 - PPSV23 or PCV20) Pneumococcal Vaccine: 65+ (3 of 3 - PPSV23 or PCV20) [facility] Comment on above: Postponed from 10/25/2015 (Declined at t his time) Start: 07-11-2025 RSV Vaccine (1 - 1-dose 75+ series) RSV Vaccine (1 - 1-dose 75+ series) [facility] Comment on above: Postponed from 2023 (Declined at t his time) Start: 07-11-2025 Shingrix Vaccine (1 of 2) Shingrix Vaccine (1 of 2) [facility] Comment on above: Postponed from 1998 (Declined at t his time) Start: 07-06-2025 Diabetic foot examination Diabetic Foot Exam [facility] Start: 07-04-2025 End: 07-03-2026 IR CVC tunneled dialysis catheter placement IR CVC tunneled dialysis catheter placement Imaging STAT Dialysis complication, subsequent encounter Expected: 07/04/2025 (Approximate), Expires: 07/03/2026 [facility] Work Phone: Comment on above: Expected: 07/04/2025 (Approximate), Expi res: 07/03/2026 Start: 06-20-2025 Hemoglobin A1c measurement HbA1C [facility] Start: 05-28-2025 COVID-19 Vaccine ( season) COVID-19 Vaccine ( season) [facility] Start: 05-28-2025 Influenza vaccination Influenza Vaccine (Season Ended) [facility] Start: 05-28-2025 [facility] Start: 05-06-2025 Annual PCP Team Chronic Disease Visit Annual PCP Team Chronic Disease Visit [facility] Start: 05-06-2025 BP Controlled (<130/80) BP Controlled (<130/80) [facility] Start: 04-15-2025 Complete blood count Hemoglobin/Hematocrit [facility] Start: 04-15-2025 Creatinine measurement Serum Creatinine [facility] Start: 04-15-2025 Hepatitis B surface antibody level LDL Cholesterol [facility] Start: 04-10-2025 Annual PCP Team Chronic Disease Visit Annual PCP Team Chronic Disease Visit [facility] Start: 04-10-2025 Anxiety Screening Anxiety Screening [facility] Start: 07-15-2025 Covid-19 Vaccine ( season) Covid-19 Vaccine () [facility] Comment on above: Postponed from 05/28/2023 (Declined at t his time) Start: 04-10-2025 Depression Screening Depression Screening [facility] Start: 03-26-2025 Influenza vaccination Influenza Vaccine (#1) [place] [facility] Comment on above: Postponed from 05/28/2024 (Declined at t his time) Start: 03-01-2025 Hemoglobin A1c measurement HbA1C [facility] Start: 02-26-2025 End: 02-26-2025 Patient encounter procedure 02/26/2025 3:00 PM EDT Office Visit [facility] [address] [place], [place] [id number] Amado James MD [address] [place], [place] [id number] 3 month DM follow up Family [facility] Comment on above: 3 month DM follow up Start: 02-12-2025 Patient referral [facility] Work Phone: Start: 02-11-2025 End: 02-12-2025 [facility] Start: 02-11-2025 [facility] Start: 02-10-2025 [facility] Start: 02-09-2025 Administration of blood product [facility] Start: 02-08-2025 End: 02-09-2025 [facility] Start: 02-08-2025 Consultation [facility] Start: 02-08-2025 Care planning and problem solving actions [facility] Start: 02-08-2025 Airway suction technique [facility] Start: 02-08-2025 [facility] Start: 02-06-2025 [facility] Start: 02-06-2025 Referral for further care [facility] Start: 02-06-2025 Wound care [facility] Start: 02-06-2025 Thyroid stimulating hormone measurement [facility] Start: 02-05-2025 End: 02-05-2025 Following clinical pathway protocol [facility] Start: 02-05-2025 Consultation for treatment [facility] Start: 02-05-2025 Application of elastic bandage [facility] Start: 02-05-2025 Elevation of affected extremity [facility] Start: 02-05-2025 Notification of physician [facility] Start: 02-05-2025 Patient education [facility] Start: 02-05-2025 Referral to parts counter clerk [facility] Start: 02-05-2025 Referral to account developer [facility] Start: 02-05-2025 [facility] Start: 02-05-2025 Bacteria identified in Blood by Culture Blood Culture [facility] Start: 02-05-2025 Bacteria identified in Urine by Culture Urine Culture [facility] Start: 02-05-2025 Continuous pulse oximetry [facility] Start: 02-05-2025 Oxygen therapy [facility] Start: 02-05-2025 Incentive spirometry [facility] Start: 02-05-2025 Assessment of risk of venous thromboembolism [facility] Start: 02-05-2025 Insertion of catheter into peripheral vein [facility] Start: 02-05-2025 Measuring intake and output [facility] Start: 02-05-2025 Providing care according to standard [facility] Start: 02-05-2025 Referral to occupational therapist [facility] Start: 02-05-2025 Referral to service [facility] Start: 02-05-2025 Vital signs measurements [facility] Start: 02-05-2025 End: 02-05-2025 [facility] Start: 02-05-2025 Bacterial nucleic acid assay [facility] Start: 02-05-2025 Methicillin resistant Staphylococcus aureus (MRSA) DNA [Presence] in Nose by PATEL with probe detection [facility] Start: 02-05-2025 Verification routine [facility] Start: 02-05-2025 Hospital admission, emergency, from emergency room, medical nature [facility] Start: 02-05-2025 Admission procedure [facility] Start: 02-05-2025 End: 02-05-2025 [facility] Start: 02-05-2025 End: 02-05-2025 [facility] Start: 02-05-2025 Dual pressure spontaneous ventilation support [facility] Start: 02-05-2025 Patient referral to dietitian [facility] Start: 01-02-2025 End: 04-03-2025 CBC panel - Blood by Automated count COMPLETE BLOOD COUNT Lab Routine Anemia, unspecified type Expected: 01/02/2025 (Approximate), Expires: 04/03/2025 [facility] Work Phone: Comment on above: Expected: 01/02/2025 (Approximate), Expi res: 04/03/2025 Start: 01-02-2025 End: 04-03-2025 Iron and Iron binding capacity panel - Serum or Plasma IRON AND TIBC Lab Routine Anemia, unspecified type Expected: 01/02/2025 (Approximate), Expires: 04/03/2025 [facility] Comment on above: Expected: 01/02/2025 (Approximate), Expi res: 04/03/2025 Start: 12-08-2024 End: 12-08-2024 Patient encounter procedure 12/08/2024 2:45 PM EDT Office Visit [facility] [address] [place] [address] Jennifer Elizabeth, OD [address] [place] [address] Diabetic eye exam Ophthalmology Comment on above: Diabetic eye exam Start: 11-27-2024 End: 11-27-2024 Patient encounter procedure 11/27/2024 2:00 PM EST Office Visit [facility] [address] [place] [address] Rufina Soares APRN.SIGNAL INTELLIGENCE ANALYST [address] [place] [address] 2 mo follow up [facility] Comment on above: 2 mo follow up Start: 11-24-2024 End: 02-23-2025 CBC W Auto Differential panel - Blood COMPLETE BLOOD COUNT AND DIFFERENTIAL Lab Routine Chronic anemia Expected: 11/24/2024 (Approximate), Expires: 02/23/2025 [facility] Comment on above: Expected: 11/24/2024 [...] (severe) (HCC) Expected: 11/24/2024 (Approximate), Expires: 02/23/2025 [facility] Comment on above: Expected: 11/24/2024 (Approximate), Expi res: 02/23/2025 Start: 11-24-2024 End: 02-23-2025 Hemoglobin A1c in Blood HEMOGLOBIN A1C Lab Routine Type 2 diabetes mellitus with chronic kidney disease, with long-term current use of insulin, unspecified CKD stage (HCC) Expected: 11/24/2024 (Approximate), Expires: 02/23/2025 [facility] Work Phone: Comment on above: Expected: 11/24/2024 (Approximate), Expi res: 02/23/2025 Start: 11-24-2024 End: 02-23-2025 Lipid 1996 panel - Serum or Plasma LIPID PANEL BASIC Lab Routine Type 2 diabetes mellitus with chronic kidney disease, with long-term current use of insulin, unspecified CKD stage (HCC) Essential hypertension, benign Hyperlipidemia, unspecified hyperlipidemia type Expected: 11/24/2024 (Approximate), Expires: 02/23/2025 [facility] Comment on above: Expected: 11/24/2024 (Approximate), Expi res: 02/23/2025 Start: 10-16-2024 Hemoglobin A1c measurement HbA1C [facility] Start: 10-09-2024 Complete blood count Hemoglobin/Hematocrit [facility] Start: 10-09-2024 Creatinine measurement Serum Creatinine [facility] Start: 10-09-2024 Hepatitis B surface antibody level LDL Cholesterol [facility] Start: 10-06-2024 End: 01-05-2025 Microalbumin/Creatinine [Mass Ratio] in Urine ALBUMIN/CREATININE RATIO, URINE Lab Routine Type 2 diabetes mellitus with chronic kidney disease, with long-term current use of insulin, unspecified CKD stage (HCC) Expected: 10/06/2024, Expires: 01/05/2025 [facility] Work Phone: Comment on above: Expected: 10/06/2024, Expires: Start: 09-27-2024 Advance Directive Discussion Advance Directive Discussion [facility] Start: 09-27-2024 Medicare Advantage Annual Wellness Visit Medicare Advantage Annual Wellness Visit [facility] Start: 09-27-2024 [facility] Start: 09-26-2024 End: 09-26-2024 Patient encounter procedure 09/26/2024 9:40 AM EST Office Visit Family [facility] [address] [facility] [place] [id number] Amado James MD [address] [place] [address] 1 week DM follow up [facility] Comment on above: 1 week DM follow up Start: 08-28-2024 End: 08-28-2024 Patient encounter procedure 08/28/2024 2:00 PM EST Office Visit [facility] [address] [facility] [place] [id number] Rufina Soares, PLANT PROTECTION OFFICER.SIGNAL INTELLIGENCE ANALYST [address] [place] [address] follow up [facility] for hypoglycemia [facility] Comment on above: follow up [facility] for hypoglycemia Start: 08-22-2024 End: 11-21-2024 CBC W Auto Differential panel - Blood COMPLETE BLOOD COUNT AND DIFFERENTIAL Lab Routine Anemia, unspecified type Expected: 08/22/2024 (Approximate), Expires: 11/21/2024 [facility] Comment on above: Expected: 08/22/2024 [...] leg edema Expected: 08/22/2024 (Approximate), Expires: 11/21/2024 [facility] Work Phone: Comment on above: Expected: 08/22/2024 (Approximate), Expi res: 11/21/2024 Start: 08-22-2024 End: 11-21-2024 Hemoglobin A1c in Blood HEMOGLOBIN A1C Lab Routine Type 2 diabetes mellitus with chronic kidney disease, with long-term current use of insulin, unspecified CKD stage (HCC) Expected: 08/22/2024 (Approximate), Expires: 11/21/2024 [facility] Comment on above: Expected: 08/22/2024 (Approximate), Expi res: 11/21/2024 Start: 08-22-2024 End: 11-21-2024 Lipid 1996 panel - Serum or Plasma LIPID PANEL BASIC Lab Routine Type 2 diabetes mellitus with chronic kidney disease, with long-term current use of insulin, unspecified CKD stage (HCC) Essential hypertension, benign Hyperlipidemia, unspecified hyperlipidemia type Expected: 08/22/2024 (Approximate), Expires: 11/21/2024 [facility] Comment on above: Expected: 08/22/2024 (Approximate), Expi res: 11/21/2024 Start: 08-21-2024 End: 08-21-2024 Patient encounter procedure 08/21/2024 2:00 PM EST Office Visit [facility] [address] [place] [address] Amado James MD [address] [place] [address] Discharged from [facility] 08/18/24 - wounds on BL feet [facility] Comment on above: Discharged from [facility] 08/18/24 - wounds on BL feet Start: 08-18-2024 End: 08-18-2024 Patient encounter procedure 08/18/2024 4:20 PM EST Office Visit [facility] [address] [place] [address] Amado James MD [address] [place] [address] 6 week f/u [facility] Comment on above: 6 week f/u Start: 07-11-2024 End: 07-11-2024 Patient encounter procedure [facility] Comment on above: follow up Annual Wellness - fo llow up Start: 05-28-2024 Covid-19 Vaccine () Covid-19 Vaccine () [facility] Start: 05-28-2024 Influenza vaccination [facility] Start: 04-15-2024 3 comp foot exam completed DIABETIC FOOT EXAM [facility] Start: 04-15-2024 ANNUAL PCP TEAM CHRONIC DISEASE VISIT ANNUAL PCP TEAM CHRONIC DISEASE VISIT [facility] Start: 04-15-2024 BP CONTROLLED (<130/80) BP CONTROLLED (<130/80) [facility] Start: 04-15-2024 COLORECTAL CANCER SCREENING COLORECTAL CANCER SCREENING [facility] Comment on above: Postponed from 1993 (Declined at t his time) Start: 04-15-2024 COVID-19 VACCINE (#1) COVID-19 VACCINE (#1) [facility] Comment on above: Postponed from 1948 (Declined at t his time) Start: 04-15-2024 Diabetic foot examination Diabetic Foot Exam [facility] Start: 04-15-2024 Mammography MAMMOGRAM [facility] Comment on above: Postponed from 08/10/2017 (Declined at t his time) Start: 04-15-2024 Pneumococcal Vaccine: 65+ (3 - PPSV23 or PCV20) Pneumococcal Vaccine: 65+ (3 - PPSV23 or PCV20) [facility] Comment on above: Postponed from 10/25/2015 (Declined at t his time) Start: 04-15-2024 Pneumococcal Vaccine: 65+ (3 of 3 - PPSV23 or PCV20) Pneumococcal Vaccine: 65+ (3 of 3 - PPSV23 or PCV20) [facility] Comment on above: Postponed from 10/25/2015 (Declined at t his time) Start: 04-15-2024 PNEUMOCOCCAL: 65+ (3 - PPSV23 or PCV20) PNEUMOCOCCAL: 65+ (3 - PPSV23 or PCV20) [facility] Comment on above: Postponed from 10/25/2015 (Declined at t his time) Start: 04-15-2024 Screening for malignant neoplasm of colon Colorectal Cancer Screening [facility] Comment on above: Postponed from 1993 (Declined at t his time) Start: 04-15-2024 SHINGRIX VACCINE (1 of 2) SHINGRIX VACCINE (1 of 2) [facility] Comment on above: Postponed from 1998 (Declined at t his time) Start: 04-10-2024 End: 04-10-2024 Patient encounter procedure 04/10/2024 6:00 PM EDT Office Visit [facility] [address] [place], [place] [id number] Amado James MD [address] [place], [place] [id number] Medicare Wellness [facility] Comment on above: Medicare Wellness Start: 04-10-2024 End: 07-10-2024 CBC panel - Blood by Automated count COMPLETE BLOOD COUNT Lab Routine Essential hypertension, benign Anemia, unspecified type Expected: 04/10/2024 (Approximate), Expires: 07/10/2024 [facility] Comment on above: Expected: 04/10/2024 (Approximate), Expi res: 07/10/2024 Start: 04-10-2024 End: 07-10-2024 Comprehensive metabolic 2000 panel - Serum or Plasma COMPREHENSIVE METABOLIC PANEL Lab Routine Type 2 diabetes mellitus with stage 3b chronic kidney disease, without long-term current use of insulin (HCC) Hyperlipidemia, unspecified hyperlipidemia type Expected: 04/10/2024 (Approximate), Expires: 07/10/2024 [facility] Work Phone: Comment on above: Expected: 04/10/2024 (Approximate), Expi res: 07/10/2024 Start: 04-10-2024 End: 07-10-2024 Hemoglobin A1c in Blood HEMOGLOBIN A1C Lab Routine Type 2 diabetes mellitus with stage 3b chronic kidney disease, without long-term current use of insulin (HCC) Expected: 04/10/2024 (Approximate), Expires: 07/10/2024 [facility] Comment on above: Expected: 04/10/2024 (Approximate), Expi res: 07/10/2024 Start: 04-10-2024 Hepatitis B surface antibody level LDL CHOLESTEROL [facility] Start: 04-10-2024 End: 07-10-2024 Lipid 1996 panel - Serum or Plasma LIPID PANEL BASIC Lab Routine Type 2 diabetes mellitus with stage 3b chronic kidney disease, without long-term current use of insulin (HCC) Hyperlipidemia, unspecified hyperlipidemia type Expected: 04/10/2024 (Approximate), Expires: 07/10/2024 [facility] Comment on above: Expected: 04/10/2024 (Approximate), Expi res: 07/10/2024 Start: 04-10-2024 SERUM CREATININE SERUM CREATININE [facility] Start: 04-08-2024 Hemoglobin A1c measurement HbA1C [facility] Start: 01-13-2024 ANNUAL PCP TEAM CHRONIC DISEASE VISIT ANNUAL PCP TEAM CHRONIC DISEASE VISIT [facility] Start: 01-13-2024 BP CONTROLLED (<130/80) BP CONTROLLED (<130/80) [facility] in Start: 01-02-2024 HEMOGLOBIN/HEMATOCRIT HEMOGLOBIN/HEMATOCRIT [facility] Start: 01-02-2024 Hepatitis B screening Urine Albumin:Creatinine Ratio [facility] Start: 01-02-2024 Hepatitis B surface antibody level LDL CHOLESTEROL [facility] Start: 01-02-2024 SERUM CREATININE SERUM CREATININE [facility] Start: 10-16-2023 End: 12-16-2023 CBC W Auto Differential panel - Blood CBC + DIFF Lab Routine H/O: GI bleed Anemia, unspecified type Expected: 10/16/2023 (Approximate), Expires: 12/16/2023 [facility] Work Phone: Comment on above: Expected: [...] hypertension, benign Expected: 10/16/2023 (Approximate), Expires: 12/16/2023 [facility] Work Phone: Comment on above: Expected: 10/16/2023 (Approximate), Expi res: 12/16/2023 Start: 10-16-2023 End: 12-16-2023 Hemoglobin A1c in Blood HGB A1C Lab Routine Type 2 diabetes mellitus with stage 3b chronic kidney disease, without long-term current use of insulin (HCC) Expected: 10/16/2023 (Approximate), Expires: 12/16/2023 [facility] Work Phone: Comment on above: Expected: 10/16/2023 (Approximate), Expi res: 12/16/2023 Start: 10-16-2023 End: 12-16-2023 Lipid 1996 panel - Serum or Plasma LIPID PANEL BASIC Lab Routine Hyperlipidemia, unspecified hyperlipidemia type Essential hypertension, benign Expected: 10/16/2023 (Approximate), Expires: 12/16/2023 [facility] Work Phone: Comment on above: Expected: 10/16/2023 (Approximate), Expi res: 12/16/2023 Start: 10-16-2023 End: 12-16-2023 Thyrotropin [Units/volume] in Serum or Plasma TSH BLD Lab Routine Elevated TSH Expected: 10/16/2023 (Approximate), Expires: 12/16/2023 [facility] Work Phone: Comment on above: Expected: 10/16/2023 (Approximate), Expi res: 12/16/2023 Start: 10-11-2023 Hemoglobin A1c/Hemoglobin.total in Blood HBA1C [facility] Start: 09-27-2023 Advance Directive Discussion Advance Directive Discussion [facility] Start: 09-27-2023 Behavioral Health Screening Behavioral Health Screening [facility] Start: 09-27-2023 Depression Assessment Depression Assessment [facility] Start: 07-13-2023 ANNUAL PCP TEAM CHRONIC DISEASE VISIT ANNUAL PCP TEAM CHRONIC DISEASE VISIT [facility] Start: 07-06-2023 HEMOGLOBIN/HEMATOCRIT HEMOGLOBIN/HEMATOCRIT [facility] Start: 07-06-2023 Hepatitis B surface antibody level LDL CHOLESTEROL [facility] Start: 07-06-2023 SERUM CREATININE SERUM CREATININE [facility] Start: 05-28-2023 Covid-19 Vaccine () Covid-19 Vaccine () [facility] Start: 05-28-2023 Influenza vaccination [facility] Start: 04-07-2023 Adult depression screening assessment DEPRESSION SCREENING [facility] Start: 04-07-2023 ANNUAL PCP TEAM CHRONIC DISEASE VISIT ANNUAL PCP TEAM CHRONIC DISEASE VISIT [facility] Start: 04-07-2023 BP CONTROLLED (<130/80) BP CONTROLLED (<130/80) [facility] Start: 04-07-2023 COVID-19 VACCINE (#1) COVID-19 VACCINE (#1) [facility] Comment on above: Postponed from 1950 (Declined at t his time) Start: 04-02-2023 Hemoglobin A1c/Hemoglobin.total in Blood HBA1C [facility] Start: 04-02-2023 HEMOGLOBIN/HEMATOCRIT HEMOGLOBIN/HEMATOCRIT [facility] Start: 04-02-2023 Hepatitis B surface antibody level LDL CHOLESTEROL [facility] Start: 04-02-2023 SERUM CREATININE SERUM CREATININE [facility] Start: 03-26-2023 Influenza vaccination INFLUENZA (#1) [facility] Comment on above: Postponed from 05/28/2022 (Declined at t his time) Start: 2023 RSV Immunization for Adults (1 - 1-dose 75+ series) RSV Immunization for Adults (1 - 1-dose 75+ series) [facility] Start: 2023 [facility] Start: 01-11-2023 End: 03-13-2023 ALBUMIN/CREAT RATIO RND UR ALBUMIN/CREAT RATIO RND UR Lab Routine Controlled type 2 diabetes mellitus without complication, with long-term current use of insulin (HCC) Essential hypertension, benign Stage 3b chronic kidney disease (HCC) Expected: 01/11/2023 (Approximate), Expires: 03/13/2023 [facility] Work Phone: Comment on above: Expected: 01/11/2023 (Approximate), Expi res: 03/13/2023 Start: 01-11-2023 End: 03-13-2023 CBC W Auto Differential panel - Blood CBC + DIFF Lab Routine Essential hypertension, benign Stage 3b chronic kidney disease (HCC) Expected: 01/11/2023 (Approximate), Expires: 03/13/2023 [facility] Work Phone: Comment on above: Expected: 01/11/2023 (Approximate), Expi res: 03/13/2023 Start: 01-11-2023 End: 03-13-2023 Comprehensive metabolic 2000 panel - Serum or Plasma COMP METABOLIC PANEL Lab Routine Controlled type 2 diabetes mellitus without complication, with long-term current use of insulin (HCC) Essential hypertension, benign Hyperlipidemia, unspecified hyperlipidemia type Expected: 01/11/2023 (Approximate), Expires: 03/13/2023 [facility] Work Phone: Comment on above: Expected: 01/11/2023 (Approximate), Expi res: 03/13/2023 Start: 01-11-2023 End: 03-13-2023 Hemoglobin A1c in Blood HGB A1C Lab Routine Controlled type 2 diabetes mellitus without complication, with long-term current use of insulin (HCC) Expected: 01/11/2023 (Approximate), Expires: 03/13/2023 [facility] Work Phone: Comment on above: Expected: 01/11/2023 (Approximate), Expi res: 03/13/2023 Start: 01-11-2023 End: 03-13-2023 Lipid 1996 panel - Serum or Plasma LIPID PANEL BASIC Lab Routine Essential hypertension, benign Hyperlipidemia, unspecified hyperlipidemia type Expected: 01/11/2023 (Approximate), Expires: 03/13/2023 [facility] Work Phone: Comment on above: Expected: 01/11/2023 (Approximate), Expi res: 03/13/2023 Start: 10-06-2022 Hemoglobin A1c/Hemoglobin.total in Blood HBA1C [facility] Start: 10-03-2022 Hemoglobin A1c/Hemoglobin.total in Blood HBA1C [facility] Start: 09-30-2022 ANNUAL PCP TEAM CHRONIC DISEASE VISIT ANNUAL PCP TEAM CHRONIC DISEASE VISIT [facility] Start: 09-30-2022 BP CONTROLLED (<130/80) BP CONTROLLED (<130/80) [facility] in Start: 09-27-2022 ADVANCE DIRECTIVE DISCUSSION ADVANCE DIRECTIVE DISCUSSION [facility] Start: 09-27-2022 DEPRESSION ASSESSMENT DEPRESSION ASSESSMENT [facility] Start: 09-22-2022 HEMOGLOBIN/HEMATOCRIT HEMOGLOBIN/HEMATOCRIT [facility] Start: 09-22-2022 Hepatitis B surface antibody level LDL CHOLESTEROL [facility] Start: 09-22-2022 SERUM CREATININE SERUM CREATININE [facility] Start: 07-08-2022 End: 09-07-2022 CBC W Auto Differential panel - Blood CBC + DIFF Lab Routine Essential hypertension, benign Stage 3b chronic kidney disease (HCC) Anemia, unspecified type Expected: 07/08/2022, Expires: 09/07/2022 [facility] Work Phone: Comment on above: Expected: 07/08/2022, Expires: 2 Start: 07-08-2022 End: 09-07-2022 Comprehensive metabolic 2000 panel - Serum or Plasma COMP METABOLIC PANEL Lab Routine Controlled type 2 diabetes mellitus without complication, with long-term current use of insulin (HCC) Essential hypertension, benign Hyperlipidemia, unspecified hyperlipidemia type Stage 3b chronic kidney disease (HCC) Expected: 07/08/2022, Expires: 09/07/2022 [facility] Work Phone: Comment on above: Expected: 07/08/2022, Expires: 2 Start: 07-08-2022 End: 09-07-2022 Hemoglobin A1c in Blood HGB A1C Lab Routine Controlled type 2 diabetes mellitus without complication, with long-term current use of insulin (HCC) Expected: 07/08/2022, Expires: 09/07/2022 [facility] Work Phone: Comment on above: Expected: 07/08/2022, Expires: 2 Start: 07-08-2022 End: 09-07-2022 Lipid 1996 panel - Serum or Plasma LIPID PANEL BASIC Lab Routine Essential hypertension, benign Hyperlipidemia, unspecified hyperlipidemia type Expected: 07/08/2022, Expires: 09/07/2022 [facility] Work Phone: Comment on above: Expected: 07/08/2022, Expires: 2 Start: 05-29-2022 3 comp foot exam completed DIABETIC FOOT EXAM [facility] Start: 05-28-2022 Influenza vaccination [facility] Start: 03-23-2022 Hemoglobin A1c/Hemoglobin.total in Blood HBA1C [facility] Start: 02-26-2022 Patient discharge [facility] Work Phone: Start: 02-26-2022 Adult depression screening assessment DEPRESSION SCREENING [facility] Start: 02-25-2022 Referral to service [facility] Work Phone: Start: 02-25-2022 Continuous pulse oximetry [facility] Work Phone: Start: 02-23-2022 Oxygen therapy [facility] Work Phone: Start: 02-22-2022 Catheterization of vein [facility] Work Phone: Start: 02-22-2022 Bacteria identified in Blood by Culture Blood Culture [facility] Work Phone: Start: 02-22-2022 Following clinical pathway protocol [facility] Work Phone: Start: 02-22-2022 Transfusion of blood product [facility] Work Phone: Start: 02-22-2022 Application of intermittent pneumatic compression device [facility] Work Phone: Start: 02-22-2022 Assessment of risk of venous thromboembolism [facility] Work Phone: Start: 02-22-2022 Care regimes management [facility] Work Phone: Start: 02-22-2022 Catheterization of vein [facility] Work Phone: Start: 02-22-2022 Chart related administrative procedure [facility] Work Phone: Start: 02-22-2022 Incentive spirometry [facility] Work Phone: Start: 02-22-2022 Inhalation therapy procedure [facility] Work Phone: Start: 02-22-2022 Insertion of catheter into peripheral vein [facility] Work Phone: Start: 02-22-2022 Measuring intake and output [facility] Work Phone: Start: 02-22-2022 Notification of physician [facility] Work Phone: Start: 02-22-2022 Providing care according to standard [facility] Work Phone: Start: 02-22-2022 Provision of activity privileges [facility] Work Phone: Start: 02-22-2022 Referral to gastroenterology service [facility] Work Phone: Start: 02-22-2022 Referral to occupational therapist [facility] Work Phone: Start: 02-22-2022 Referral to service [facility] Work Phone: Start: 02-22-2022 [facility] Work Phone: Start: 02-22-2022 Admission procedure [facility] Work Phone: Start: 02-22-2022 Administration of blood product [facility] Work Phone: Start: 02-22-2022 Patient referral to dietitian [facility] Work Phone: Start: 09-27-2021 ADVANCE DIRECTIVE DISCUSSION ADVANCE DIRECTIVE DISCUSSION [facility] Start: 10-25-2019 Pneumococcal Vaccine: 50+ Years (3 of 3 - PCV20 or PCV21) Pneumococcal Vaccine: 50+ Years (3 of 3 - PCV20 or PCV21) [facility] Start: 10-25-2019 [facility] Start: 06-03-2019 COLORECTAL CANCER SCREENING COLORECTAL CANCER SCREENING [facility] Start: 06-03-2019 FECAL OCCULT BLOOD FECAL OCCULT BLOOD [facility] Start: 06-03-2019 Screening for malignant neoplasm of colon Fecal Occult Blood [facility] Start: 03-11-2019 Glaucoma screening Dilated Retinal Exam [facility] Start: 03-11-2019 Hepatitis C antibody, confirmatory test DILATED RETINAL EXAM [facility] Start: 08-10-2017 Mammography MAMMOGRAM [facility] Start: 10-25-2015 Pneumococcal Vaccine: 65+ (3 of 3 - PPSV23 or PCV20) Pneumococcal Vaccine: 65+ (3 of 3 - PPSV23 or PCV20) [facility] Start: 10-25-2015 PNEUMOCOCCAL: 65+ (3 - PPSV23 if available, else PCV20) PNEUMOCOCCAL: 65+ (3 - PPSV23 if available, else PCV20) [facility] Start: 10-25-2015 PNEUMOCOCCAL: 65+ (3 - PPSV23 or PCV20) PNEUMOCOCCAL: 65+ (3 - PPSV23 or PCV20) [facility] Start: 12-20-2014 Pneumococcal Vaccine: 50+ Years (3 of 3 - PPSV23, PCV20 or PCV21) Pneumococcal Vaccine: 50+ Years (3 of 3 - PPSV23, PCV20 or PCV21) [facility] Start: 2008 Hepatitis B Vaccine (1 of 3 - Risk 3-dose series) Hepatitis B Vaccine (1 of 3 - Risk 3-dose series) [facility] Start: 2008 RSV Vaccine (1 - 1-dose 60+ series) RSV Vaccine (1 - 1-dose 60+ series) [facility] Start: 1998 SHINGRIX VACCINE (1 of 2) SHINGRIX VACCINE (1 of 2) [facility] Start: 1998 Zoster Vaccines (1 of 2) Zoster Vaccines (1 of 2) [facility] Start: 1998 [facility] Start: 1993 COLOGUARD (FIT-DNA) COLOGUARD (FIT-DNA) [facility] Start: 1993 Colonoscopy COLONOSCOPY [facility] Start: [address] COLONOGRAPHY [facility] Start: 1993 Screening for malignant neoplasm of colon [facility] Start: 1993 SIGMOIDOSCOPY SIGMOIDOSCOPY [facility] Start: 1968 Hepatitis B Vaccines (1 of 3 - Risk Dialysis 4-dose series) Hepatitis B Vaccines (1 of 3 - Risk Dialysis 4-dose series) [facility] Start: 1967 DTaP/Tdap/Td Vaccines (1 - Tdap) DTaP/Tdap/Td Vaccines (1 - Tdap) [facility] Start: 1967 Urine microalbumin profile [facility] Start: 1967 [facility] Start: 1966 BP CONTROLLED (<130/80) BP CONTROLLED (<130/80) [facility] Start: 1966 Hepatitis C screening [facility] Start: 1960 Depression Monitoring Depression Monitoring [facility] Start: 1960 [facility] Start: 1953 COVID-19 VACCINE (#1) COVID-19 VACCINE (#1) [facility] Start: 1948 Echocardiography Echocardiogram [facility] Start: 1948 Screening for osteoporosis [facility] Start: 1948 [facility] Anion gap in Serum o r Plasma [facility] Anion gap in Serum o r Plasma [facility] Anion gap in Serum o r Plasma [facility] Basic metabolic 2008 panel with ionized calcium - Serum or Plasma [facility] BUN/Creatinine ratio [facility] BUN/Creatinine ratio [facility] BUN/Creatinine ratio [facility] Calcium [Mass/volume ] in Serum or Plasma [facility] Calcium [Mass/volume ] in Serum or Plasma [facility] Calcium [Mass/volume ] in Serum or Plasma [facility] Carbon dioxide, tota l [Moles/volume] in Central venous blood [facility] Carbon dioxide, tota l [Moles/volume] in Central venous blood [facility] Carbon dioxide, tota l [Moles/volume] in Central venous blood [facility] Creatinine [Mass/vol ume] in Serum or Plasma [facility] Creatinine [Mass/vol ume] in Serum or Plasma [facility] Creatinine [Mass/vol ume] in Serum or Plasma [facility] Erythrocyte mean corpuscular volume determination [facility] Glucose [Mass/volume ] in Serum or Plasma [facility] Glucose [Mass/volume ] in Serum or Plasma [facility] Glucose [Mass/volume ] in Serum or Plasma [facility] Hematocrit [Volume Fraction] of Blood [facility] Hemoglobin [Mass/vol ume] in Blood [facility] Leukocytes [#/volume ] in Blood [facility] End: 03-25-2024 [facility] SCREENING [facility] SCREENING Radiology Routine Encounter for screening mammogram for breast cancer 1 Occurrences starting 02/24/2023 until 03/25/2024 [facility] Work Phone: Comment on above: 1 Occurrences starting 02/24/2023 until 03/25/2024 Mean corpuscular hemoglobin concentration determination [facility] Mean corpuscular hemoglobin determination [facility] Measurement of renal function [facility] Measurement of renal function [facility] Measurement of renal function [facility] Neutrophil count [facility] Neutrophil percent differential count [facility] NM Heart Views W str ess and W radionuclide IV [facility] Work Phone: NM Heart Views W str ess and W radionuclide IV [facility] Patient referral [facility] Work Phone: Platelets [#/volume] in Blood [facility] Potassium measurement [facility] Potassium measurement [facility] Potassium measurement [facility] Red blood cell count [facility] Red cell distributio n width determination [facility] End: 04-03-2023 Screening mammography bi 2-view breast inc cad BUSTER SCREENING Radiology Routine Encounter for screening mammogram for breast cancer 1 Occurrences starting 03/04/2022 until 04/03/2023 [facility] Work Phone: Comment on above: 1 Occurrences starting 03/04/2022 until 04/03/2023 Serum chloride measurement [facility] Serum chloride measurement [facility] Serum chloride measurement [facility] Sodium measurement [facility] Sodium measurement [facility] Sodium measurement [facility] Troponin T.cardiac [Mass/volume] in Serum or Plasma by High sensitivity method [facility] Troponin T.cardiac [Mass/volume] in Serum or Plasma by High sensitivity method [facility] Urea nitrogen [Mass/volume] in Serum or Plasma [facility] Urea nitrogen [Mass/volume] in Serum or Plasma [facility] Urea nitrogen [Mass/volume] in Serum or Plasma [facility] Urine culture [facility] Immunizations Immunization Date Immunization Notes Care Provider Mirian coats 06-03-2018 influenza virus vacc ine, unspecified formulation Aamdo James MD Work Phone: [facility] 10-25-2014 pneumococcal conjuga te vaccine, 13 valent Amado James MD Work Phone: [facility] 06-27-[address] Amado James Work Phone: [facility] 07-08-2010 influenza virus vacc ine, unspecified formulation Amado James MD Work Phone: [facility] 07-17-2005 influenza virus vacc ine, unspecified formulation Amado James MD Work Phone: [facility] 07-17-2005 pneumococcal polysaccharide vaccine, 23 valent Amado James MD Work Phone: [facility] 06-27-[address] Kamini James Work Phone: [facility] Work Phone: 06-27-2003 pneumococcal vaccine , unspecified formulation Amado James MD Work Phone: [facility] Payers Date Payer Category Payer Medicare [id number] 2025 Unknown xx 2025 Self-pay [id number] 2024 Medicaid [id number] 2024 Medicaid [id number] 2023 Medicare HMO [id number] 2019 Medicare (Managed Care) [employer] PPO [id number] 2019 Unknown NADEEN GANN S AND BLUE SHIELD NADEEN MANDEL ACCESS [id number] 2019-Present [phone] [address] [place] [address] PPO [id number] 2019 Unknown [id number] 2019 Medicare [id number] Unknown [id number] Unknown [id number] Unknown [id number] Unknown [id number] Unknown [id number] Unknown [id number] Social History Date Type Detail Facility Start: 02-22-2022 End: 06-17-2023 Tobacco smoking status [facility] Unknown if ever smoked [facility] Start: 09-26-2013 None [facility] Start: 09-26-2013 Spouse/ Signif icant Other [facility] Start: 09-26-2013 Non-smoker [facility] Start: 1950 Sex Assigned At Female W [facility] Start: 07-13-2022 End: 02-05-2025 Tobacco smoking status NHIS Ex-smoker [facility] Start: 09-30-2021 End: 11-27-2024 Alcohol intake Current non-drinker of alcohol (finding) [facility] Start: 12-31-2009 End: 07-13-2022 Tobacco Comment Quit 1980s [facility] Start: 1950 Sex Assigned At Not on file [facility] Start: 02-22-2022 End: 04-07-2022 Exposure to SARS-CoV-2 (event) Not sure [facility] Work Phone: History of tobacco use Current smoker [facility] Start: 07-13-2022 End: 06-01-2025 Tobacco use and exposure Smokeless tobacco non-user [facility] Start: 04-15-2023 End: 07-06-2025 History of Social function [facility] Work Phone: Start: 04-15-2023 End: 07-06-2025 Tobacco use panel [facility] Work Phone: Adult Depression Screening Assessment 2 [facility] Work Phone: How often to you hav e a drink containing alcohol? Never [facility] Start: 06-01-2025 Tobacco smoking status NHIS Never smoked [facility] History of tobacco use Passive smoker [facility] SCVN[facility] Within the last year , have you been afraid of your partner or ex-partner? No [facility] Start: 06-01-2025 Sex Female (finding) [facility] NEGATED: Highlighted row Not [facility] Medical Equipment Procedure Code Equipment Code Equipment Origin al Text Equipment Identifier Dates Amputation, foot AXIOFILL,500MG FDA Star t: 07-14-2024 Amputation, foot AXIOFILL,500MG FDA Star t: 07-14-2024 Amputation, foot AXIOFILL,500MG FDA Star t: 07-14-2024 [id number], [id number], [id number], [id number], [id number] Start: 08-10-2016 End: 08-28-2024 Comment on above: [...] Assessment Result Facility 02-12-2025 Functional status Bedrest [facility] Work Phone: 02-26-2022 Functional status [facility] Work Phone: 10-25-2014 Are you deaf, or do you have serious difficulty hearing No 10/25/2014 9:39 AM Mariza Rehman MA No [facility] 10-25-2014 Are you blind, or do you have serious difficulty seeing, even when wearing glasses No 10/25/2014 9:39 AM Mariza Rehman MA No [facility] 10-25-2014 Do you have serious difficulty walking or climbing stairs No 10/25/2014 9:39 AM Mariza Rehman MA No [facility] 10-25-2014 Do you have difficul ty dressing or bathing No 10/25/2014 9:39 AM Mariza Rehman MA No [facility] 10-25-2014 Because of a physica l, mental, or emotional condition, do you have difficulty doing errands alone such as visiting a physician's office or shopping No 10/25/2014 9:39 AM Mariza Rehman MA No [facility] Mental Status Date Assessment Result Facility 02-12-2025 Cognitive function Voice/Name;[facility] Work Phone: 02-26-2022 Cognitive function Voice/Name [facility] Work Phone: 10-25-2014 Because of a physica l, mental, or emotional condition, do you have serious difficulty concentrating, remembering, or making decisions No 10/25/2014 9:39 AM Mariza Rehman MA No [facility] Clinical Notes 09-27-2013 to 08-01-2025 Darrell Egan RN - 07/06/2025 5:28 PM Stefani Egan RN - 07/06/2025 5:28 PM Stefani Egan RN - 07/06/2025 4:06 PM Joie Prasad RN - 07/06/2025 12:10 PM EDTDisvishnu Instr - TERRA Note Date & Type Note Facility 08-01-2025 Note Acceptable Specimen? Acceptable Specimen(Evaluation not needed) Gram Stain 4+ Gram positive rods 4+ Gram negative rods 2+ White Blood Cells [facility] Comment on above: Performed By: #### M 100.2400, M100.1999 ####[facility] [id number] [place], [address] 07-06-2025 Nurse Note Pt report called to SNF , Pt care transferred to [facility] , Vitals and Pertinent medical hx and treatment reviewed. Pt transferred from bed to cot rails x 2. Vent switched from RT vent to EMS teams Vent. Pt left in EMS crews care fro transport back to SNF [facility] 07-06-2025 Nurse Note Pt report called to SNF , Pt care transferred to [facility] , Vitals and Pertinent medical hx and [...] Name: Rosa Myers Patient : 1950 Acct: [id number] Date of Admission: 07/04/2025 Room/Bed: T2-217/T2217 A [...] - Before each treatment: Dialysis Machine No.: [id number] RO Machine Number: [id number] Dialyzer Lot No.: [id number] Tubing Lot Number: [id number] All Connections Secure: Yes Venous Parameters Set: Yes Arterial Parameters Set: Yes NS Bag: Yes Saline Line Double Clamped: Yes Dialyzer: Nipro Prime Volume (mL): 250 mL RO Machine Number: [id number] RO Machine Log Sheet Completed: Yes Machine Alarm Self Test: Completed, Passed (07/06/25819) Air Foam Detector: Tested, Proper Function, pH Reading Extracorporeal Circuit Tested for Integrity: Yes Machine Conductivity: 14.3 Manual Conductivity: 14 Manual Ph: 7.2 Bleach Test (Neg): Yes Bath Temperature: 36 C (96.8 F) Conductivity Meter Serial #: [id number] Machine Functioning Alarm Free? Yes Dialysis Bath: K+ (Potassium): 3 Ca+ (Calcium): 2.5 Na+ (Sodium): 137 HCO3 (Bicarb): 32 Bicarbonate Concentrate Lot No.: [id number] Acid Concentrate Lot No.: [id number] Chlorine Testing - Before each treatment and [...] (mmHg) TMP DFR Access Visible Intra-Hemodialysis Comments 07/06/25824 400 mL/min 570 ml/hr -80 mmHg 100 [...] Name: Rosa Myers Patient : 1950 Acct: [id number] Date of Admission: 07/04/2025 [facility] A Code Status: Full Code Allergies: [...] - Before each treatment: Dialysis Machine No.: [id number] Machine Number: [id number] Dialyzer Lot No.: [id number] Tubing Lot Number: [id number] All Connections Secure: Yes Venous Parameters Set: Yes Arterial Parameters Set: Yes NS Bag: Yes Saline Line Double Clamped: Yes Dialyzer: Nipro Prime Volume (mL): 200 mL RO Machine Number: [id number] RO Machine Log Sheet Completed: Yes Machine Alarm Self Test: Completed, Passed (The machine passed all tests at 0417.) (07/05/25 0434) Air Foam Detector: Tested, Proper Function Extracorporeal Circuit Tested for Integrity: Yes Machine Conductivity: 14.3 Manual Conductivity: 14.4 Manual Ph: 7.2 Bleach Test (Neg): Yes Bath Temperature: 36 C (96.8 F) Conductivity Meter Serial #: [id number] Machine Functioning Alarm Free? Yes Dialysis Bath: [...] 64 18 100 % -- -- 07/05/25 08 (!) 123/42 -- -- 67 21 100 % -- -- 07/05/25 0800 99/87 -- -- 64 15 100 % -- -- 07/05/25 0745 (!) 86/64 36.3 C (97.3 F) Temporal 65 16 100 % -- -- 07/05/2530 (!) 113/44 -- -- 59 15 100 % -- -- 07/05/2515 104/76 -- -- 62 13 100 % [...] and he confirmed. documented in this encounter [facility] 07-06-2025 Nurse Note Pt is confused at baseline , pt is from a SNF pt has son who cares for her as well. [facility] 07-06-2025 History of Presen t illness Narrative Images from the original note were not included. NEPHROLOGY PROGRESS NOTE PATIENT NAME: Rosa Myers ROOM: T2217/T2-217 A SERVICE DATE: 07/06/2025 SERVICE TIME: 3:11 PM LENGTH OF STAY: 2 day(s) REFERRING PHYSICIAN: Santos Jacobs DO PRIMARY CARE PHYSICIAN: No primary care provider on file. OUTPATIENT BEET FLUMER: [facility] (Dr. Loredo) Subjective/HPI [...] BP Temp Temp src Pulse Resp SpO2 10/10/25 1309 -- -- -- 67 21 100 [...] (H) 06/02/2025 Lab Results Component Value Date [id number] 1,032 (H) 06/02/2025 FOLATE 12.6 06/02/2025 Recent [...] HD per Wednesday through Wednesday schedule at [facility], HTN, HLD, CHF, chronic respiratory failure s/p trach/PEG, DM type 2, neuropathy, history of C. difficile colitis, anxiety, depression, morbid obesity who presented with malfunctioning of her RIJ HDTC and was admitted for dialysis following replacement of her tunneled line. Nephrology is following for the provision of inpatient dialysis. Plan ESRD on HD per Wednesday through Wednesday schedule at [facility] - patient typically dialyzes per a Wednesday through Wednesday schedule - will plan to dialyze per a [facility] schedule while as an inpatient - s/p 3 hour 30 minute HD treatment today as below: [id number] Na 137 K 3 Ca 2.5 HCO3 [...] July 06, 2025 TIME: 3:11 PM PAGER: [phone] OFFICE: [phone] [1] albuterol, 2.5 mg, Nebulization, TID atorvastatin, [...] chloride 0.9%, 5-40 mL, IntraVENous, q12h [2] [facility] Respiratory Care Department Progress Note Spontaneous [...] ABG results No results for input(s): "PHART", "KUZ8KYK", "PO2ART", "KNC6CEF", "SO2ART", "L1GSMYLN" in the last 72 hours. Does this [...] -Received dialysis this morning -Usual schedule is M// -Nephrology following Trach and vent dependent -RT [...] Code Anticipated Discharge - Date - DC [facility] 07/06 Extended Emergency Contact Information Primary Emergency Contact: Marcell Myers Mobile Relation: Son Chef De Froid needed? No Santos Jacobs DO Division of Hospitalist Medicine Acute care [facility] [1] Past Medical History: Diagnosis Date [...] 3350, sodium chloride, sodium chloride 0.9% [4] [facility] Respiratory Care Department Progress Note Spontaneous [...] ABG results No results for input(s): "PHART", "FIW0TCP", "PO2ART", "VRV8YRB", "SO2ART", "P9NDRBMD" in the last 72 hours. Does this patient meet criteria for termination of mechanical ventilation No - Chronic Vent Dependent Name of physician notified via secure chat or in person : n/a (NA if patient did not meet criteria) Comments: Thank you for involving Respiratory in the care of this patient, [facility] Respiratory Care Department Progress Note Spontaneous Awakening Trial Wean Screen Spontaneous Breathing Trial Vent Settings Vent Mode: Assist control (07/04/251554) Mandatory Type: VC+ (07/04/251554) Resp Rate (Set): 14 (07/04/251554) Vt (Set, mL): 420 mL (07/04/251554) FiO2 (%): 70 % (07/04/251605) PEEP/CPAP (cm H2O): 8 cm H20 (07/04/251554) Inspiratory Time (sec): 0.9 sec (07/04/251554) Vitals MAP (mmHg): 80 (07/04/25 160) Heart Rate: 72 (07/04/25 160) Resp: 14 (07/04/25 160) SpO2: 100 % (07/04/251605) Suctioning/Secretions Secretion Amount: Small (07/04/251554) Secretion Color: White (07/04/251554) Secretion Consistency: Thick (07/04/251554) ABG results No results for input(s): "PHART", "DXJ1RVT", "PO2ART", "GAP9RLD", "SO2ART", "T2YRGBQB" in the last 72 hours. Does this patient meet criteria for termination of mechanical ventilation No - Chronic Vent Dependent Name of physician notified via secure chat or in person : NA (NA if patient did not meet criteria) Comments: Thank you for involving Respiratory in the care of this patient, documented in this encounter [facility] 07-06-2025 Progress note Formatting of t his note might be different from the original. Case Management Discharge Summary Note Who you talked to: Name: Marcell Myers No answer, left HIPAA compliant VM. Marcell was aware patient would likely discharge today back to SNF. PLAN: Care Home Facility Facility: [facility], Level of Care: tank terminal gauger care, and Transport: Prosper Garcia and Barbara via stretcher 07/06/2025 at 7pm.Trach to vent requested. CM anticipates no copay for transport as joão has dual MCR and JOON. [facility] 07-06-2025 Miscellaneous Notes Case Management Discharge Summary Note Who you talked to: Name: Marcell Myers No answer, left HIPAA compliant VM. Marcell was aware patient would likely discharge today back to SNF. PLAN: Care Home Facility Facility: [facility], Level of Care: tank terminal gauger care, and Transport: Prosper Garcia and Barbara [...] Ok to discharge per attending. CM tasked [employer] to send discharge orders to SNF via careport. Planned Discharge Disposition: [facility]sp/Residential Care ([facility]) Barriers/Today we still Wait: Clinical stability, Procedure (comment) Length of Stay (Days): 2 GMLOS: No GMLOS Documented Case management will continue to follow for discharge planning. Care Management Progress Note Short Medical why still here: Remains for chronic trach/peg, iHD baseline - 5d/wk, iHD today. Nephrology following/consult. Planned Discharge Disposition: [facility]sp/Residential Care ([facility]) Can return when medically ready, will need transportation set up. Barriers/Today we still Wait: Clinical stability, Bilingual Account Manager recommendations (comment), Symptomatic control Length of Stay (Days): 1 GMLOS: No GMLOS Documented Case management will continue to follow for discharge planning. Care Managment Initial Assessment Date: 07/05/2025 Patient Name: Rosa Myers : 1950 Patient Information Source of Information: Patient, Patient [employer] Name/Contact Information: Marcell العلي [phone] Cognition/Language: Other (Comment) (trach/vent - mouths words) Permission given to speak with patient traveling representative/caregiver as indicated: Yes Confirmation of Payer with patient/family: Yes Payer Name: : Confirmation of Primary Care Physician: Confirmed (SNF provider) Seen in last 2 years?: Yes Primary Caregiver: Other (Comment) (facility) If assistance needed, confirmed caregiver ready, willing and able to care for patient at discharge: Confirmed with: Living Arrangements Current Residence: Number of Floors Number of Entry Steps: Bed/Bath Levels: Facility: [facility] Care Facility Name: [facility] Plan to Return: Lives with: Other [...] Plan Patient expects to be discharged to: [facility] Discharge Planning Actions: Continue to follow, Care Home Facility referral indicated [place] of choice: [place] of [place] discussed Patient's Choice Rights and [employer] and Collaborative Relationships Disclosed as Indicated for Post-Acute Care: Yes Interdisciplinary Team Engagement: Social Work Referral for: Additional Information: Initial Assessment: Chart reviewed. IA/HRA completed. CM spoke with patient at bedside. Appropriate PPE worn. Patient trach to vent, mouths words and gestures appropriately. Patient from [facility] - LTC bedhold. Has insurance on EHR. PCP at SNF. Patient requested CM to call ada Faith to discuss discharge planning. CM called Marcell (son) [phone] regarding discharge planning. Introduced myself and role. Discussed LTACH vs SNF and LTC facility. Discussed several recent admissions to hospital. Marcell wishes for patient to return to [facility]. CM tasked [employer] to send referral via careport. Confirmed patient is LTC bedhold, iHD mon to Wednesday at facility. Will need transportation to facility. Case management will continue to follow for discharge planning. Return referral placed to [facility] via Careport per TCC request. Await review and response regarding ability to accept. TCC notified. documented in this encounter [facility] 07-06-2025 Progress note Formatting of t his note might be different from the original. Care Management Progress Note Short Medical why still here: Remains for chronic trach/peg, iHD baseline - 5d/wk, iHD today. Nephrology following/consult. Plan for discharge today s/p iHD run. 07/06/25 Ok to discharge per attending. CM tasked [employer] to send discharge orders to SNF via careport. Planned Discharge Disposition: [facility] Barriers/Today we still Wait: Clinical stability, Procedure (comment) Length of Stay (Days): 2 GMLOS: No GMLOS Documented Case management will continue to follow for discharge planning. [facility] 07-06-2025 Nurse Note Patient Name: Rosa Myers Patient : 1950 Acct: [id number] Date of Admission: 07/04/2025 Room[facility]Bed: T2217/[facility] A Code Status: Full Code Allergies: [...] 136 07/06/20258 K 4.0 07/06/2025447 CL 99 07/06/2025447 CO2 27 07/06/20258 BUN 64 (H) 07/06/2025447 CREATININE 3.36 (H) 07/06/2025447 CALCIUM 9.3 07/06/2025447 PHOS 3.3 07/06/20258 IV Drips and Rate/Dose Continuous Meds[3] Safety - Before each treatment: Dialysis Machine No.: [id number] RO Machine Number: [id number] Dialyzer Lot No.: [id number] Tubing Lot Number: [id number] All Connections Secure: Yes Venous Parameters Set: Yes Arterial Parameters Set: Yes NS Bag: Yes Saline Line Double Clamped: Yes Dialyzer: Nipro Prime Volume (mL): 250 mL RO Machine Number: [id number] RO Machine Log Sheet Completed: Yes Machine Alarm Self Test: Completed, Passed (07/06/25819) Air Foam Detector: Tested, Proper Function, pH Reading Extracorporeal Circuit Tested for Integrity: Yes Machine Conductivity: 14.3 Manual Conductivity: 14 Manual Ph: 7.2 Bleach Test (Neg): Yes Bath Temperature: 36 C (96.8 F) Conductivity Meter Serial #: [id number] Machine Functioning Alarm Free? Yes Dialysis Bath: K+ (Potassium): 3 Ca+ (Calcium): 2.5 Na+ (Sodium): 137 HCO3 (Bicarb): 32 Bicarbonate Concentrate Lot No.: [id number] Acid Concentrate Lot No.: [id number] Chlorine Testing - Before each treatment and [...] no s/s of distress, 220 ml removed 07/06/25899 400 mL/min 720 ml/hr -150 mmHg 120 mmHg 80 600 Yes pt resting with eyes closed, 400 ml removed 07/06/25 0915 400 mL/min 720 ml/hr -180 mmHg 120 mmHg 80 600 Yes no HD complications, 575 ml removed 07/06/25929 400 mL/min 720 ml/hr -210 mmHg 120 [...] 143/69 -- -- 62 15 100 % 07/06/2515 136/50 -- -- 64 18 100 % [...] stage renal disease) on dialysis (HCC) [3] [facility] 07-06-2025 Hospital course Narrative Discharge Summary [...] Complexity: follow up within 7-14 calendar days (26882) [x] Severe Complexity: follow up within 7 calendar days (45524) Follow up Testing, Pending results or Referrals [...] Santos Jacobs DO Division of Hospitalist Medicine [facility] 07/06/2025, 2:54 PM [1] Past Medical History: Diagnosis Date Anxiety Depression Diabetes (HCC) Respiratory failure (HCC) documented in this encounter [employer] 07-06-2025 Note [facility] 07-05-2025 Nurse Note Patient bleeding from old IV site. Changed patient's gown, linens. Also rolled new pull pad under patient. No kinks in FMS. [facility] 07-05-2025 Consult note Associated Order (s): [...] ESRD (Wednesday, Wed, Wednesday- HD at [facility]), PEG placement on 02/21 and tracheostomy placement 02/27/2025 who admits with concern for incomplete HD; did not have dialysis since of last week (6 days). Recently get a new dialysis catheter placed 07/04/25; requires dialysis prior to going back to custodial facility. Patient is nonverbal but able to [...] Steady ordered # 57 mls/hour - cyclic 2509-6080, pro-stat, run 20 hours a day, off during dialysis. Estimated Daily Nutrient Needs: Energy Requirements Based On: Kcal/kg Weight Used for Energy Requirements: [place] Weight for Energy Calculation (kg): 57 kg Total Energy Requirements (kcals/day): 25-30 kcals/kg = 4708-9202 kcals/day Weight Used for Protein Requirements: [place] Weight in Kg Used for Protein Requirements: [...] Carb Steady @ 57 mls/hour (cyclic) - 1881-1539 - run 20 hours, off during dialysis. Prostat listed - no amount listed. Water Flushes: none Current EN & Flush Order Provides: ordered Goal EN & Flush Order Provides: Nepro with Carb Steady @ 57 mls/hour x 20 hours (6143-1883), off during dialysis = 2018 kcals, 92g protein, 829 mls free H20 = 35 kcals/kg + 1.6g protein/kg IBW (57kgs). Anthropometric Measures: Height: 165.1 cm (5' 5") Current Body Weight: 105 kg (231 lb 7.7 oz) Weight Source: Bed Scale [place] Body Weight (lbs) (Calculated): 125 lbs [place] Body Weight (Kg) (Calculated): 57 kg % [place] Body Weight (Calculated): 185.2 % BMI (kg/m2) [...] Planning: Too soon to determine Millicent Mcknight RD,[facility] Contact: *[phone] or Epic Chat [1] atorvastatin, 40 mg, [...] chloride 0.9%, 5-40 mL, IntraVENous, q12h [2] [facility] 07-05-2025 Consult note Associated Order [...] ESRD (Wednesday, Wed, Wednesday- HD at [facility]), PEG placement on 02/21 and tracheostomy placement 02/27/2025 who admits with concern for incomplete HD; did not have dialysis since of last week (6 days). Recently get a new dialysis catheter placed 07/04/25; requires dialysis prior to going back to custodial facility. Patient is nonverbal but able to [...] Steady ordered # 57 mls/hour - cyclic 3638-3320, pro-stat, run 20 hours a day, off during dialysis. Estimated Daily Nutrient Needs: Energy Requirements Based On: Kcal/kg Weight Used for Energy Requirements: [place] Weight for Energy Calculation (kg): 57 kg Total Energy Requirements (kcals/day): 25-30 kcals/kg = 6006-3248 kcals/day Weight Used for Protein Requirements: [place] Weight in Kg Used for Protein Requirements: [...] Carb Steady @ 57 mls/hour (cyclic) - 7552-0840 - run 20 hours, off during dialysis. Prostat listed - no amount listed. Water Flushes: none Current EN & Flush Order Provides: ordered Goal EN & Flush Order Provides: Nepro with Carb Steady @ 57 mls/hour x 20 hours (3563-2288), off during dialysis = 2018 kcals, 92g protein, 829 mls free H20 = 35 kcals/kg + 1.6g protein/kg IBW (57kgs). Anthropometric Measures: Height: 165.1 cm (5' 5") Current Body Weight: 105 kg (231 lb 7.7 oz) Weight Source: Bed Scale [place] Body Weight (lbs) (Calculated): 125 lbs [place] Body Weight (Kg) (Calculated): 57 kg % [place] Body Weight (Calculated): 185.2 % BMI (kg/m2) [...] Planning: Too soon to determine Millicent Mcknight RD,[facility] Contact: *[phone] or Epic Chat [1] atorvastatin, 40 mg, [...] No primary care provider on file. OUTPATIENT BEET FLUMER: [facility] (Dr. Loredo) Subjective/HPI Rosa Myers is a 75 y.o. female with PMHx significant for ESRD on HD (per Wednesday through Wednesday schedule at [facility]), HTN, HLD, CHF, chronic respiratory failure [...] and dry, without rash to forehead, with [facility] HDTC in place Recent Labs: Recent Labs 07/03/25 1351 07/04/25 1634 07/05/25 0341 WBC 7.3 7.4 6.8 HGB 8.0* 7.9* 7.4* HCT 25.1* 24.7* 23.4* MCV 85.4 84.6 85.7 PLT 197 171 179 Lab Results Component Value Date IRON 31 (L) 06/10/2025 TIBC 188 (L) 06/10/2025 FERRITIN 613 (H) 06/02/2025 Lab Results Component Value Date [id number] 1,032 (H) 06/02/2025 FOLATE 12.6 06/02/2025 Recent [...] HD per Wednesday through Wednesday schedule at [facility], HTN, HLD, CHF, chronic respiratory failure s/p trach/PEG, DM type 2, neuropathy, history of C. difficile colitis, anxiety, depression, morbid obesity who presented with malfunctioning of her RIJ HDTC and was admitted for dialysis following replacement of her tunneled line. Nephrology was consulted for the provision of inpatient dialysis. Plan ESRD on HD per Wednesday through Wednesday schedule at [facility] - patient typically dialyzes per a Wednesday through Wednesday schedule - will plan to dialyze per a [facility] schedule while as an inpatient - will plan for a 3 hour 30 minute HD treatment tomorrow 07/06/25 as below: Fiz153 Na 137 K 3 Ca 2.5 HCO3 [...] Emanuel DO PATIENT NAME: Rosa Myers ROOM: / A DATE: July 05, 2025 TIME: 11:08 AM PAGER: [phone] OFFICE: [phone] [1] Past Medical History: Diagnosis Date Anxiety Depression Diabetes (HCC) Respiratory failure (HCC) [2] No past surgical history on file. [3] No family history on file. [4] Social History Socioeconomic History Marital status: Single Tobacco Use Smoking status: Never Passive exposure: Past Smokeless tobacco: Never Social Drivers of Health Financial Resource Strain: Patient Unable To Answer (03/08/2025) Received from [facility] Overall Financial Resource Strain (CARDIA) Difficulty of Paying Living Expenses: Patient unable to answer Food Insecurity: Patient Unable To Answer (03/08/2025) Received from [facility] Hunger Vital Sign Worried About Running Out of Food in the Last Year: Patient unable to answer Ran Out of Food in the Last Year: Patient unable to answer Transportation Needs: No Transportation Needs (06/01/2025) PRAPARE - Transportation Lack of Transportation (Medical): No Lack of Transportation (Non-Medical): No Physical Activity: Inactive (07/11/2024) Received from [facility] Exercise Vital Sign Days of Exercise per Week: 0 days Minutes of Exercise per Session: 0 min Stress: No Stress Concern Present (04/18/2025) Received from [facility] of Occupational Health - Occupational Stress Questionnaire Feeling of Stress : Only a little Social Connections: Unknown (03/08/2025) Received from [facility] Social Connection and Isolation Panel [NHANES] Frequency of Communication with Friends and Family: Patient unable to answer Frequency of Social Gatherings with Friends and Family: Patient unable to answer Attends Caodaism Services: Patient unable to answer Active Member [...] Violence - At Risk (03/07/2025) Received from [facility] Domestic Abuse Assessment Do you feel [...] IntraVENous, q12h [8] documented in this encounter [facility] 07-05-2025 Progress note Formatting of t his note might be different from the original. Care Management Progress Note Short Medical why still here: Remains for chronic trach/peg, iHD baseline - 5d/wk, iHD today. Nephrology following/consult. Planned Discharge Disposition: [facility]idential Care ([facility]) Can return when medically ready, will need transportation set up. Barriers/Today we still Wait: Clinical stability, Bilingual Account Manager recommendations (comment), Symptomatic control Length of Stay (Days): 1 GMLOS: No GMLOS Documented Case management will continue to follow for discharge planning. [facility] 07-05-2025 Progress note Formatting of t his note might be different from the original. Care Managment Initial Assessment Date: 07/05/2025 Patient Name: Rosa Myers : 1950 Patient Information Source of Information: Patient, Patient Temper [employer] Name/Contact Information: Marcell Myers Son [phone] Cognition/Language: Other (Comment) (trach/vent - mouths words) Permission given to speak with patient traveling representative/caregiver as indicated: Yes Confirmation of Payer with patient/family: Yes Payer Name: [place]: Confirmation of Primary Care Physician: Confirmed (SNF provider) Seen in last 2 years?: Yes Primary Caregiver: Other (Comment) (facility) If assistance needed, confirmed caregiver ready, willing and able to care for patient at discharge: Confirmed with: Living Arrangements Current Residence: Number of Floors Number of Entry Steps: Bed/Bath Levels: Facility: [facility] Facility Name: [facility] Plan to Return: Lives with: Other [...] Plan Patient expects to be discharged to: [facility] Discharge Planning Actions: Continue to follow, Care Home Facility referral indicated [place] of choice: [place] of [place] discussed Patient's Choice Rights and [employer] and Collaborative Relationships Disclosed as Indicated for Post-Acute Care: Yes Interdisciplinary Team Engagement: Social Work Referral for: Additional Information: Initial Assessment: Chart reviewed. IA/HRA completed. CM spoke with patient at bedside. Appropriate PPE worn. Patient trach to vent, mouths words and gestures appropriately. Patient from [facility] - LTC bedhold. Has insurance on EHR. PCP at SNF. Patient requested CM to call ada Faith to discuss discharge planning. CM called Marcell (son) [phone] regarding discharge planning. Introduced myself and role. Discussed LTACH vs SNF and LTC facility. Discussed several recent admissions to hospital. Marcell wishes for patient to return to [facility]. CM tasked [employer] to send referral via careport. Confirmed patient is LTC bedhold, iHD wed to Wednesday at facility. Will need transportation to facility. Case management will continue to follow for discharge planning. [facility] 07-05-2025 [facility] Discharg e kevin Jacobs DO - [...] Emergency Contact: Marcell Myers Mobile Relation: Son Chef De Froid needed? No Past Surgical History: No past [...] 5.8 oz) Mental Status: {TERRA Patient Mental Status:62951} IV Access: {TERRA IV Access:20589} Nursing Mobility/ADLs: Walking {OBED ADL:33527::"Independent"} Transfer {OBED ADL:81630::"Independent"} Bathing {OBED ADL:97066::"Independent"} Dressing {OBED ADL:11401::"Independent"} Toileting {OBED ADL:31220::"Independent"} Feeding {OBED ADL:22388::"Independent"} Corn Husker {OBED ADL:94345::"Independent"} Med Delivery {yes/no:75672} Wound Care Documentation and Therapy: Elimination: Continence: Bowel: {yes/no:75988} Bladder: {yes/no:30519} Urinary Catheter: {TERRA Urinary Catheter:74312} Colostomy/Ileostomy/Ileal Conduit: {YES / NO:} Date of Last BM: Intake/Output Summary (Last 24 hours) at 07/05/2025 1137 Last data filed at 07/05/2025 0815 Gross per 24 hour Intake 300 ml Output 200 ml Net 100 ml I/O last 3 completed shifts: In: 0 (0 mL/kg) Out: 200 (1.9 mL/kg) [Stool:200] Weight: 105.5 kg Safety Concerns: {TERRA Safety Concerns:57459} Impairments/Disabilities: {TERRA Impairments/Disabilities:96148} Nutrition Therapy: Current Nutrition Therapy: {TERRA Diet List:98816} Routes of Feeding: {routes of feedin} Liquids: {liquid consistency:38709} Daily Fluid Restriction: {daily fluid restriction:47931} Last Modified Barium Swallow with Video (Video Swallowing Test): {done not done:97515} Treatments at the Time of Hospital Discharge: Respiratory Treatments: Oxygen Therapy: {Therapy; copd oxygen:64901} Ventilator: {TERRA Ventilator:36727} Rehab Therapies: {GEN THERAPY DISCIPLINE SCAL:8106972} Weight Bearing Status/Restrictions: {POD WEIGHT BEARIN} Other Medical Equipment (for information only, NOT a DME order): {Assistive Devices DME:59024} Other Treatments: Patient's personal belongings (please select all that are sent with patient): {TERRA Patient Belongings:65065} RN SIGNATURE: {E-signature:49675} CASE MANAGEMENT/SOCIAL WORK SECTION Inpatient Status Date: 07/04/2025 Discharging to Facility/ Agency [place] [address] Dialysis Facility (if applicable) Name: Address: Dialysis Schedule: Phone: Fax: Animal Control Officer/Director Of Hospitality signature: ICIAN SECTION Name: Rosa Myers Prognosis: [...] to a nursing facility directly from an [facility] or a unit of a [facility] that is not operated by or licensed by [facility] under section 5119.14 or 5160-3-15.1 5 The individual requires the level of services provided by a nursing facility for the condition for which he or she was treated in the hospital and, Physician Certification: I certify the above information and transfer of Rosa Myers is necessary for the continuing treatment of the diagnosis listed and that she requires custodial facility for greater than 30 days. Update Admission H&P: No change in H&P PHYSICIAN SIGNATURE: documented in this encounter [facility] 07-05-2025 Consult note Associated Order (s): IP CONSULT TO NEPHROLOGY Images from the original note were not included. NEPHROLOGY CONSULT NOTE PATIENT NAME: Rosa Myers ROOM: T2-217/T2-217 A SERVICE DATE: 07/05/2025 SERVICE TIME: 11:08 AM LENGTH OF STAY: 1 day(s) REFERRING PHYSICIAN: Santos Jacobs DO PRIMARY CARE PHYSICIAN: No primary care provider on file. OUTPATIENT BEET FLUMER: [facility] (Dr. Loredo) Subjective/HPI Rosa Myers is a 75 y.o. female with PMHx significant for ESRD on HD (per Wednesday through Wednesday schedule at [facility]), HTN, HLD, CHF, chronic respiratory failure [...] -- 67 21 100 % -- -- 07/05/2500 99/87 -- -- 64 15 100 % -- -- 07/05/25 0745 (!) 86/64 36.3 C (97.3 F) Temporal 65 16 100 % -- -- 07/05/2530 (!) 113/44 -- -- 59 15 100 % -- -- 07/05/2515 104/76 -- -- 62 13 100 % [...] (H) 06/02/2025 Lab Results Component Value Date [id number] 1,032 (H) 06/02/2025 FOLATE 12.6 06/02/2025 Recent [...] HD per Wednesday through Wednesday schedule at [facility], HTN, HLD, CHF, chronic respiratory failure s/p trach/PEG, DM type 2, neuropathy, history of C. difficile colitis, anxiety, depression, morbid obesity who presented with malfunctioning of her RIJ HDTC and was admitted for dialysis following replacement of her tunneled line. Nephrology was consulted for the provision of inpatient dialysis. Plan ESRD on HD per Wednesday through Wednesday schedule at [facility] - patient typically dialyzes per a Wednesday through Wednesday schedule - will plan to dialyze per a [facility] schedule while as an inpatient - will plan for a 3 hour 30 minute HD treatment tomorrow 07/06/25 as below: Gvl640 Na 137 K 3 Ca 2.5 HCO3 [...] July 05, 2025 TIME: 11:08 AM PAGER: [phone] OFFICE: [phone] [1] Past Medical History: Diagnosis Date Anxiety Depression Diabetes (HCC) Respiratory failure (HCC) [2] No past surgical history on file. [3] No family history on file. [4] Social History Socioeconomic History Marital status: Single Tobacco Use Smoking status: Never Passive exposure: Past Smokeless tobacco: Never Social Drivers of Health Financial Resource Strain: Patient Unable To Answer (03/08/2025) Received from [facility] Overall Financial Resource Strain (CARDIA) Difficulty of Paying Living Expenses: Patient unable to answer Food Insecurity: Patient Unable To Answer (03/08/2025) Received from [facility] Hunger Vital Sign Worried About Running Out of Food in the Last Year: Patient unable to answer Ran Out of Food in the Last Year: Patient unable to answer Transportation Needs: No Transportation Needs (06/01/2025) PRAPARE - Transportation Lack of Transportation (Medical): No Lack of Transportation (Non-Medical): No Physical Activity: Inactive (07/11/2024) Received from [facility] Exercise Vital Sign Days of Exercise per Week: 0 days Minutes of Exercise per Session: 0 min Stress: No Stress Concern Present (04/18/2025) Received from [facility] - Occupational Stress Questionnaire Feeling of Stress : Only a little Social Connections: Unknown (03/08/2025) Received from [facility] Social Connection and Isolation Panel [NHANES] Frequency of Communication with Friends and Family: Patient unable to answer Frequency of Social Gatherings with Friends and Family: Patient unable to answer Attends Caodaism Services: Patient unable to answer Active Member [...] Violence - At Risk (03/07/2025) Received from [facility] Domestic Abuse Assessment Do you feel [...] chloride 0.9%, 5-40 mL, IntraVENous, q12h [8] [facility] 07-05-2025 Note Return referral plac ed to [facility] via [facility] per TCC request. Await review and response regarding ability to accept. TCC notified. [facility] 07-05-2025 Progress note Formatting of t his note might be different from the original. Return referral placed to [facility] via Careport per TCC request. Await review and response regarding ability to accept. TCC notified. [facility] 07-05-2025 Nurse Note Patient Name: Rosa Myers Patient : 1950 Acct: [id number] Date of Admission: 07/04/2025 Room/Bed: T2-217/T2217 A [...] - Before each treatment: Dialysis Machine No.: [id number] RO Machine Number: [id number] Dialyzer Lot No.: [id number] Tubing Lot Number: [id number] All Connections Secure: Yes Venous Parameters Set: Yes Arterial Parameters Set: Yes NS Bag: Yes Saline Line Double Clamped: Yes Dialyzer: Nipro Prime Volume (mL): 200 mL Machine Number: [id number] RO Machine Log Sheet Completed: Yes Machine Alarm Self Test: Completed, Passed (The machine passed all tests at 0417.) (07/05/25 0434) Air Foam Detector: Tested, Proper Function Extracorporeal Circuit Tested for Integrity: Yes Machine Conductivity: 14.3 Manual Conductivity: 14.4 Manual Ph: 7.2 Bleach Test (Neg): Yes Bath Temperature: 36 C (96.8 F) Conductivity Meter Serial #: [id number] Machine Functioning Alarm Free? Yes Dialysis Bath: [...] -- 66 -- -- -- -- 07/05/25899 12498 -- -- 66 15 100 % -- [...] stage renal disease) on dialysis (HCC) [3] [facility] 07-05-2025 Nurse Note This RN reached [...] order to Dr. Powell and he confirmed. [facility] 07-04-2025 Emergency department Note Report given to RYNE Browning on T2 ICU [facility] 07-04-2025 Emergency department Note Report given to RYNE Browning on T2 ICU Patient incontinent of stool. Cleaned and repositioned to her R side with wedges. Kangaroo pump requested as well as PEG nutrition EMERGENCY DEPARTMENT ENCOUNTER Pt Name: Rosa Myers Birthdate 1950 Date of evaluation: 07/04/2025 ED Provider: Re Maciel MD CHIEF COMPLAINT Chief Complaint Patient presents with Other [facility] to [facility] catheter replaced. [...] Reach out to Dr. Powell who is employee relations specialist today for [employer] and informed him of the patient. He will help arrange dialysis before patient goes back to facility. However unable to get dialysis while in the ED. Will need admission. Admitted to [facility] the patient get dialysis and afterwards will be appropriate for discharge back to her custodial facility. ED Course as of 07/04/251910Jul 04, 2025 1731 Messaged [facility] for admission [TC] ED Course User Index [...] Patient Unable To Answer (03/08/2025) Received from [facility] Overall Financial Resource Strain (CARDIA) Difficulty of Paying Living Expenses: Patient unable to answer Food Insecurity: Patient Unable To Answer (03/08/2025) Received from [facility] Hunger Vital Sign Worried About Running Out of Food in the Last Year: Patient unable to answer Ran Out of Food in the Last Year: Patient unable to answer Transportation Needs: No Transportation Needs (06/01/2025) PRAPARE - Transportation Lack of Transportation (Medical): No Lack of Transportation (Non-Medical): No Physical Activity: Inactive (07/11/2024) Received from [facility] Exercise Vital Sign Days of Exercise per Week: 0 days Minutes of Exercise per Session: 0 min Stress: No Stress Concern Present (04/18/2025) Received from [facility]ational Health - Occupational Stress Questionnaire Feeling of Stress : Only a little Social Connections: Unknown (03/08/2025) Received from [facility] Social Connection and Isolation Panel [NHANES] Frequency of Communication with Friends and Family: Patient unable to answer Frequency of Social Gatherings with Friends and Family: Patient unable to answer Attends Caodaism Services: Patient unable to answer Active Member [...] 2:58 PM EDT documented in this encounter [facility] 07-04-2025 Emergency department Note Patient incontinent of stool. Cleaned and repositioned to her R side with wedges. [facility] 07-04-2025 Emergency department Note Kangaroo pump requested as well as PEG nutrition [facility] 07-04-2025 History and physical note Attending History and Physical Admit Date: 07/04/2025 PCP: No primary care provider on file. CHIEF COMPLAINT: Dialysis Reason for Admission: Dialysis History Obtained From: patient and chart review HISTORY OF PRESENT ILLNESS: Rosa is a 75 y.o. female with past medical history below who presents with chief complaint listed above. Patient resides in a custodial facility. Recently get a new dialysis catheter placed today. She has not had dialysis since of last week, 6 days. Patient needing dialysis prior to going back to custodial facility. She is prevented, treatment and has [...] Patient Unable To Answer (03/08/2025) Received from [facility] Overall Financial Resource Strain (CARDIA) Difficulty of Paying Living Expenses: Patient unable to answer Food Insecurity: Patient Unable To Answer (03/08/2025) Received from [facility] Hunger Vital Sign Worried About Running Out of Food in the Last Year: Patient unable to answer Ran Out of Food in the Last Year: Patient unable to answer Transportation Needs: No Transportation Needs (06/01/2025) PRAPARE - Transportation Lack of Transportation (Medical): No Lack of Transportation (Non-Medical): No Physical Activity: Inactive (07/11/2024) Received from [facility] Exercise Vital Sign Days of Exercise per Week: 0 days Minutes of Exercise per Session: 0 min Stress: No Stress Concern Present (04/18/2025) Received from [facility]ational Health - Occupational Stress Questionnaire Feeling of Stress : Only a little Social Connections: Unknown (03/08/2025) Received from [facility] Social Connection and Isolation Panel [NHANES] Frequency of Communication with Friends and Family: Patient unable to answer Frequency of Social Gatherings with Friends and Family: Patient unable to answer Attends Caodaism Services: Patient unable to answer Active Member [...] Violence - At Risk (03/07/2025) Received from [facility] Domestic Abuse Assessment Do you feel [...] Discharge - Date -07/05/2025 - Location - [facility] (Non-Skilled) - Pending the following -dialysis Total time spent (which include face to face and non face to face encounters) : 75 minutes. Extended Emergency Contact Information Primary Emergency Contact: Marcell Myers Mobile Relation: Son Chef De Froid needed? No ADVANCED CARE PLANNING Rosa Myers : 1950 Primary Care Physician: No primary care provider on file. The patient and/or family/surrogate voluntarily agreed to participate in ACP services. Patient s cognitive capacity: Alert and oriented x 2 Code Status: [X] [FULL CODE - Continue all advanced life support: CPR,intubation,invasive procedures] [_] [DNR-CCA - DO NOT do CPR, intubation] [_] [DNR-ELECTRICAL TESTER BATTERY - Comfort care only] [_] DNR form [was/was not] signed Full Code Peter Sullivan, PLANT PROTECTION OFFICER - [facility] [1] Past Medical History: Diagnosis Date [...] Peters MD at 07/04/2025 7:08 PM EDT [employer] Work Phone: 07-04-2025 Note [employer] [facility] 07-04-2025 History and physical note Attending History and Physical Admit Date: 07/04/2025 PCP: No primary care provider on file. CHIEF COMPLAINT: Dialysis Reason for Admission: Dialysis History Obtained From: patient and chart review HISTORY OF PRESENT ILLNESS: Rosa is a 75 y.o. female with past medical history below who presents with chief complaint listed above. Patient resides in a custodial facility. Recently get a new dialysis catheter placed today. She has not had dialysis since of last week, 6 days. Patient needing dialysis prior to going back to custodial facility. She is prevented, treatment and has [...] Patient Unable To Answer (03/08/2025) Received from [facility] Overall Financial Resource Strain (CARDIA) Difficulty of Paying Living Expenses: Patient unable to answer Food Insecurity: Patient Unable To Answer (03/08/2025) Received from [facility] Hunger Vital Sign Worried About Running Out of Food in the Last Year: Patient unable to answer Ran Out of Food in the Last Year: Patient unable to answer Transportation Needs: No Transportation Needs (06/01/2025) PRAPARE - Transportation Lack of Transportation (Medical): No Lack of Transportation (Non-Medical): No Physical Activity: Inactive (07/11/2024) Received from [facility] Exercise Vital Sign Days of Exercise per Week: 0 days Minutes of Exercise per Session: 0 min Stress: No Stress Concern Present (04/18/2025) Received from [facility] Health - Occupational Stress Questionnaire Feeling of Stress : Only a little Social Connections: Unknown (03/08/2025) Received from [facility] Social Connection and Isolation Panel [NHANES] Frequency of Communication with Friends and Family: Patient unable to answer Frequency of Social Gatherings with Friends and Family: Patient unable to answer Attends Caodaism Services: Patient unable to answer Active Member [...] - Type of Abuse: Not on file HRSN Domestic Abuse - Time Frame: Not on file HRSN Domestic Abuse - Signs and Symptoms: Not [...] Discharge - Date -07/05/2025 - Location - [facility] Care Facility (Non-Skilled) - Pending the following -dialysis Total time spent (which include face to face and non face to face encounters) : 75 minutes. Extended Emergency Contact Information Primary Emergency Contact: Marcell Myers Mobile Relation: Son Chef De Froid needed? No ADVANCED CARE PLANNING Rosa Myers : 1950 Primary Care Physician: No primary care provider on file. The patient and/or family/surrogate voluntarily agreed to participate in ACP services. Patient s cognitive capacity: Alert and oriented x 2 Code Status: [X] [FULL CODE - Continue all advanced life support: CPR,intubation,invasive procedures] [_] [DNR-CCA - DO NOT do CPR, intubation] [_] [DNR-ELECTRICAL TESTER BATTERY - Comfort care only] [_] DNR form [was/was not] signed Full Code Peter Sullivan APRN - SIGNAL INTELLIGENCE ANALYST Division of Hospitalist Medicine [1] Past Medical [...] 7:08 PM EDT documented in this encounter [facility] 07-04-2025 Physician Emergency department Note EMERGENCY DEPARTMENT ENCOUNTER Pt Name: Rosa Myers Birthdate 1950 Date of evaluation: 07/04/2025 ED Provider: Re Maciel MD CHIEF COMPLAINT Chief Complaint Patient presents with Other Pt [facility] to have dialysis catheter replaced. [...] Reach out to Dr. Powell who is employee relations specialist today for [employer] and informed him of the patient. He will help arrange dialysis before patient goes back to facility. However unable to get dialysis while in the ED. Will need admission. Admitted to [facility] the patient get dialysis and afterwards will be appropriate for discharge back to her custodial facility. ED Course as of 07/04/251910Jul 04, 2025 1731 Messaged [facility] for admission [TC] ED Course User Index [...] Patient Unable To Answer (03/08/2025) Received from [facility] Overall Financial Resource Strain (CARDIA) Difficulty of Paying Living Expenses: Patient unable to answer Food Insecurity: Patient Unable To Answer (03/08/2025) Received from [facility] Hunger Vital Sign Worried About Running Out of Food in the Last Year: Patient unable to answer Ran Out of Food in the Last Year: Patient unable to answer Transportation Needs: No Transportation Needs (06/01/2025) PRAPARE - Transportation Lack of Transportation (Medical): No Lack of Transportation (Non-Medical): No Physical Activity: Inactive (07/11/2024) Received from [facility] Exercise Vital Sign Days of Exercise per Week: 0 days Minutes of Exercise per Session: 0 min Stress: No Stress Concern Present (04/18/2025) Received from [facility]ational [facility] - Occupational Stress Questionnaire Feeling of Stress : Only a little Social Connections: Unknown (03/08/2025) Received from [facility] Social Connection and Isolation Panel [NHANES] Frequency of Communication with Friends and Family: Patient unable to answer Frequency of Social Gatherings with Friends and Family: Patient unable to answer Attends Caodaism Services: Patient unable to answer Active Member [...] Violence - At Risk (03/07/2025) Received from [facility] Domestic Abuse Assessment Do you feel [...] Lyon DO at 07/06/2025 2:58 PM EDT [facility] 07-04-2025 Nurse Note Pt transported to ER 37 with RT. PLANNING MANAGEMENT IT SPECIALIST aware of arrival [facility] 07-04-2025 Miscellaneous Notes Pt transported to ER 37 with RT. PLANNING MANAGEMENT IT SPECIALIST aware of arrival Procedure finished per Samantha / staff at [facility] pt is not allowed to return to ECF until has dialysis at hospital ( this was not known or conveyed to us until intra/post procedure). Initially they stated pt to go to [place] [facility] for dialysis when I spoke with physicians transport they refuse this transport trip (per dispatcher Lucia and his ethanol operations manager Tomy). Spoke again with Samantha at [facility] and they now want her to go to our ER for emergent dialysis as they state it has been 6 days since last dialysis. Spoke with our ER charge weigher Hyacinth and went over this situation and need for ER bed for pt - none available at present time and states she will call back when one available. Pt waiting at this time in holding area spot 2 and IR charge nurse updated Unable to place IV - charge weigher notified. 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 RT Tamar was at bedside and switched pt from physicians transport vent to hers documented in this encounter [facility] 07-04-2025 Note Pt tolerated procedu re well. Tunn hd cath exchanged. Transfer pt to IR recovery. [facility] 07-04-2025 Nurse Note Pt tolerated procedure well. Tunn hd cath exchanged. Transfer pt to IR recovery. [facility] 07-04-2025 Nurse Note Pt tolerated procedure [...] for the procedure. documented in this encounter [facility] 07-04-2025 Nurse Note Procedure finished per Samantha / staff at [facility] pt is not allowed to return to ECF until has dialysis at hospital ( this was not known or conveyed to us until intra/post procedure). Initially they stated pt to go to [place] [facility] for dialysis when I spoke with physicians transport they refuse this transport trip (per dispatcher Lucai and his ethanol operations manager Tomy). Spoke again with Samantha at [facility] and they now want her to go to our ER for emergent dialysis as they state it has been 6 days since last dialysis. Spoke with our ER charge weigher Krista and went over this situation and need for ER bed for pt - none available at present time and states she will call back when one available. Pt waiting at this time in holding area spot 2 and IR charge nurse updated [facility] 07-04-2025 Nurse Note Tunneled hd cath removed. [facility] 07-04-2025 Nurse Note IR Procedures: Rosa is here from a ECF for a tunneled hd cath exchange . Pt has verbalized understanding of the procedural instructions. Dr. Newby has spoken to pt. History, allergies, medications and lab results reviewed. Informed consent has been signed. Pt is on a monitor. Patient ready for the procedure. [facility] 07-04-2025 Note [facility] 07-04-[address] IV - charge weigher notified. 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 RT Tamar was at bedside and switched pt from physicians transport vent to hers [facility] 07-03-2025 Hospital Discharg e instructions Re Maciel MD - 07/03/2025 5:03 PM EDT IR will do the dialysis port replacement outpatient. Her facility would need to get in contact with one of our coordinators to set up an appointment. Given the situation, they would get her in within the next day or 2. They need to call [phone] and speak with Roxie or Joseph. They can leave a voicemail if they're not in office and they will return the call during business hours. documented in this encounter [facility] 07-03-2025 Emergency department Note EMERGENCY DEPARTMENT ENCOUNTER Pt Name: Rosa Myers Birthdate 1950 Date of evaluation: 07/03/2025 ED Provider: Armando Redd DO CHIEF COMPLAINT Chief Complaint Patient presents with Other Patient presents through triage from [facility], staff states that patient needs new [...] get a course of dialysis today. [TC] 2073 Dr. Redd talked to nephrology and they [...] Medicine Provider Armando Redd DO Resident 07/03/25 6032 [1] No past medical history on file. [2] No past surgical history on file. [3] No family history on file. [4] Social History Socioeconomic History Marital status: Single Tobacco Use Smoking status: Never Passive exposure: Past Smokeless tobacco: Never Social Drivers of Health Financial Resource Strain: Patient Unable To Answer (03/08/2025) Received from [facility] Overall Financial Resource Strain (CARDIA) Difficulty of Paying Living Expenses: Patient unable to answer Food Insecurity: Patient Unable To Answer (03/08/2025) Received from [facility] Hunger Vital Sign Worried About Running Out of Food in the Last Year: Patient unable to answer Ran Out of Food in the Last Year: Patient unable to answer Transportation Needs: No Transportation Needs (06/01/2025) PRAPARE - Transportation Lack of Transportation (Medical): No Lack of Transportation (Non-Medical): No Physical Activity: Inactive (07/11/2024) Received from [facility] Exercise Vital Sign Days of Exercise per Week: 0 days Minutes of Exercise per Session: 0 min Stress: No Stress Concern Present (04/18/2025) Received from [facility] of Occupational Health - Occupational Stress Questionnaire Feeling of Stress : Only a little Social Connections: Unknown (03/08/2025) Received from [facility] Social Connection and Isolation Panel [NHANES] Frequency of Communication with Friends and Family: Patient unable to answer Frequency of Social Gatherings with Friends and Family: Patient unable to answer Attends Caodaism Services: Patient unable to answer Active Member [...] Violence - At Risk (03/07/2025) Received from [facility] Domestic Abuse Assessment Do you feel [...] 07/03/2025 4:04 PM EDT Emergency Department Encounter [facility] EMERGENCY DEPT Patient: Rosa Myers : 1950 [...] discussed the patient's management with other clinicians: Bilingual Account Manager nephrology and interventional radiology All diagnostic, treatment, [...] contact the dictating provider for clarification.) Gerardo Fedler MD Acute Care [facility] Gerardo Felder MD 07/03/25 6518 documented in this encounter [facility] 07-03-2025 Physician Emergency department Note EMERGENCY DEPARTMENT ENCOUNTER Pt Name: Rosa FARRISN: [id number] Birthdate 1950 Date of evaluation: 07/03/2025 ED Provider: Armando Redd DO CHIEF COMPLAINT Chief Complaint Patient presents with Other Patient presents through triage from [facility], staff states that patient needs new [...] and disposition. ED Course as of 07/03/25 170 Tue Jul 03, 2025 1524 Sign out: dialysis access problem. Daily dialysis. Port was checked yesterday and discharged. However when they were doing dialysis today the machine was alarming. Sent back for evaluation of the port itself. Will check with nephrology to see if patient can get a course of dialysis today. [TC] 0500 Dr. Redd talked to nephrology and they [...] Medicine Provider Armando Redd DO Resident 07/03/25 3593 [1] No past medical history on file. [2] No past surgical history on file. [3] No family history on file. [4] Social History Socioeconomic History Marital status: Single Tobacco Use Smoking status: Never Passive exposure: Past Smokeless tobacco: Never Social Drivers of Health Financial Resource Strain: Patient Unable To Answer (03/08/2025) Received from [facility] Overall Financial Resource Strain (CARDIA) Difficulty of Paying Living Expenses: Patient unable to answer Food Insecurity: Patient Unable To Answer (03/08/2025) Received from [facility] Hunger Vital Sign Worried About Running Out of Food in the Last Year: Patient unable to answer Ran Out of Food in the Last Year: Patient unable to answer Transportation Needs: No Transportation Needs (06/01/2025) PRAPARE - Transportation Lack of Transportation (Medical): No Lack of Transportation (Non-Medical): No Physical Activity: Inactive (07/11/2024) Received from [facility] Exercise Vital Sign Days of Exercise per Week: 0 days Minutes of Exercise per Session: 0 min Stress: No Stress Concern Present (04/18/2025) Received from [facility] of Occupational Health - Occupational Stress Questionnaire Feeling of Stress : Only a little Social Connections: Unknown (03/08/2025) Received from [facility] Social Connection and Isolation Panel [NHANES] Frequency of Communication with Friends and Family: Patient unable to answer Frequency of Social Gatherings with Friends and Family: Patient unable to answer Attends Caodaism Services: Patient unable to answer Active Member [...] Violence - At Risk (03/07/2025) Received from [facility] Domestic Abuse Assessment Do you feel [...] Felder MD at 07/03/2025 4:04 PM EDT [facility] Work Phone: 07-03-2025 Physician Emergency department Note Emergency [...] discussed the patient's management with other clinicians: Bilingual Account Manager nephrology and interventional radiology All diagnostic, treatment, [...] provider for clarification.) Gerardo Felder MD Acute [facility] Gerardo Felder MD 07/03/25 9463 [facility] 07-02-2025 Emergency department Note Discharge discussed with transport at this time. Patient leaves in stable condition. IV removed, gauze and tape placed over insertion site. [facility] 07-02-2025 Emergency department Note Discharge discussed with transport at this time. Patient leaves in stable condition. IV removed, gauze and tape placed over insertion site. remote broadcast technician at bedside - reports no issues flushing and pulling from catheter. EMERGENCY DEPARTMENT ENCOUNTER Pt Name: Rosa Myers Birthdate 1950 Date of evaluation: 07/02/2025 ED Provider: Re Maciel MD CHIEF COMPLAINT Chief Complaint Patient presents with Vascular Access Problem Pt arrives to ED via [facility] from [facility] for a clogged dialysis catheter. HISTORY OF PRESENT ILLNESS (Location/Symptom, Timing/Onset, Context/Setting, Quality, Duration, Modifying Factors, Severity) Note limiting factors. I wore appropriate PPE for the entirety of this encounter. HPI Rosa Myers is a 75 y.o. who presents to the emergency department for vascular access problem. Patient is coming in from [facility] for clogged dialysis catheter. Was [...] Family History[3] SOCIAL HISTORY Social History[4] SCREENINGS Enterprise Coma Scale Best Eye Response: Spontaneous Best [...] BP Location FiO2 (%) 07/02/25 1622 07/02/25 161 Left arm 40 % Physical Exam Constitutional: [...] No Physical Activity: Inactive (07/11/2024) Received from [facility] Exercise Vital Sign Days of Exercise per Week: 0 days Minutes of Exercise per Session: 0 min Stress: No Stress Concern Present (04/18/2025) Received from [facility] Occupational Health - Occupational Stress Questionnaire Feeling of Stress : Only a little Social Connections: Unknown (03/08/2025) Received from [facility] Social Connection and Isolation Panel [NHANES] Frequency of Communication with Friends and Family: Patient unable to answer Frequency of Social Gatherings with Friends and Family: Patient unable to answer Attends Caodaism Services: Patient unable to answer Active Member [...] Violence - At Risk (03/07/2025) Received from [facility] Domestic Abuse Assessment Do you feel [...] Last Year: No Re Maciel MD Resident 07/02/253 Cosigned by Klever Rand DO at 07/02/2025 [...] was contacted and they did send the civil laboratory technician down to evaluate the line. It [...] Rand DO 07/02/251925 documented in this encounter [facility] 07-02-2025 Hospital Discharg e instructions Re Maciel MD - 07/02/2025 5:23 PM EDT Thank you for visiting us at [facility] Emergency Department. You were seen today for CLOGGED DIALYSIS PORT. Our dialysis nurses were able to evaluate the port. The port flushes and draws well. At this time we feel that you are safe to go home. Please follow-up with your primary care provider within the next week. documented in this encounter [facility] 07-02-2025 Emergency department Note remote broadcast technician at bedside - reports no issues flushing and pulling from catheter. [facility] 07-02-2025 Physician Emergency department Note EMERGENCY DEPARTMENT ENCOUNTER Pt Name: Rosa Myers Birthdate 1950 Date of evaluation: 07/02/2025 ED Provider: Re Maciel MD CHIEF COMPLAINT Chief Complaint Patient presents with Vascular Access Problem Pt arrives to ED via [facility] from [facility] for a clogged dialysis catheter. HISTORY OF PRESENT ILLNESS (Location/Symptom, Timing/Onset, Context/Setting, Quality, Duration, Modifying Factors, Severity) Note limiting factors. I wore appropriate PPE for the entirety of this encounter. HPI Rosa Myers is a 75 y.o. who presents to the emergency department for vascular access problem. Patient is coming in from [facility] for clogged dialysis catheter. Was [...] Family History[3] SOCIAL HISTORY Social History[4] SCREENINGS Enterprise Coma Scale Best Eye Response: Spontaneous Best [...] Patient Unable To Answer (03/08/2025) Received from [facility] Overall Financial Resource Strain (CARDIA) Difficulty of Paying Living Expenses: Patient unable to answer Food Insecurity: Patient Unable To Answer (03/08/2025) Received from [facility] Hunger Vital Sign Worried About Running Out of Food in the Last Year: Patient unable to answer Ran Out of Food in the Last Year: Patient unable to answer Transportation Needs: No Transportation Needs (06/01/2025) PRAPARE - Transportation Lack of Transportation (Medical): No Lack of Transportation (Non-Medical): No Physical Activity: Inactive (07/11/2024) Received from [facility] Exercise Vital Sign Days of Exercise per Week: 0 days Minutes of Exercise per Session: 0 min Stress: No Stress Concern Present (04/18/2025) Received from [facility] - Occupational Stress Questionnaire Feeling of Stress : Only a little Social Connections: Unknown (03/08/2025) Received from [facility] Social Connection and Isolation Panel [NHANES] Frequency of Communication with Friends and Family: Patient unable to answer Frequency of Social Gatherings with Friends and Family: Patient unable to answer Attends Caodaism Services: Patient unable to answer Active Member [...] Violence - At Risk (03/07/2025) Received from [facility] Domestic Abuse Assessment Do you feel [...] Rand DO at 07/02/2025 7:23 PM EDT [facility] 07-02-2025 Physician Emergency department Note Emergency [...] was contacted and they did send the civil laboratory technician down to evaluate the line. It [...] [employer] Klever Rand DO 07/02/251925 [employer] Phone: 06-21-2025 History of Presen t illness Narrative [facility] Nephrology Progress Note Subjective/ 75 y.o. year old female who we are seeing in consultation for ESRD and management of HD. Follows with Dr. Loredo and an outpatient HD schedule M- at [facility]. 06/06: TDC removed for suspicion of [...] hemodialysis RECOMMENDATIONS: - HD schedule M-F at [facility], follows with Dr. Loredo. Will maintain MWF [...] from the original note were not included. [facility], Pul[facility] [place] [address] [place] [id number] Patient - Rosa Myers, Age - 75 [...] PRN Meds[4] Labs: CBC: Recent Labs 06/19/25 0629 06/20/25 0506 06/21/25 [...] Discharge planning: Stable to discharge back to [facility] from pulmonary standpoint. Case discussed with [...] Daily, Grzegorz Chatterjee MD, 20 mg at 06/21/25827 furosemide (Lasix) tablet 20 mg, 20 mg, Per G Tube, Daily, Grzegorz Chatterjee MD, 20 mg at 06/21/25 08 glucagon (human recombinant) injection 1 mg, 1 mg, IntraMUSCular, PRN, Sharyn Amaya MD glucose oral gel 15 g, 15 g, Oral, PRN, Sharyn Amaya MD heparin injection 1,200-2,000 Units, 1,200-2,000 Units, IntraCATHeter, PRN, RENITA Clifford CNP, 1,800 Units at 06/20/25 1302 heparin injection 1,200-2,000 Units, 1,200-2,000 Units, IntraCATHeter, PRN, RENITA Clifford CNP, 1,700 Units at 06/20/25 1301 heparin injection [...] Sharyn Amaya MD, 25 Units at 06/21/25 08 Insulin Lispro (Humalog) injection 0-6 Units, 0-6 Units, SubCUTAneous, q6h, Grzegorz Chatterjee MD, 1 Units at 06/14/25 1202 ipratropium-albuterol (Duo-Neb) 0.5-2.5 mg/3 mL nebulizer solution 3 mL, 3 mL, Nebulization, TID, RENITA Tyler CNP, 3 mL at 06/21/25 0830 LORazepam (Ativan) [...] Grzegorz Chatterjee MD, 10 mg at 06/21/25 08 minocycline capsule 100 mg, 100 mg, [...] 4 mL, 4 mL, Nebulization, BID, Neelima Hanks, RENITA - SIGNAL INTELLIGENCE ANALYST, 4 mL at 06/21/25 0831 stomahesive in [...] chloride, sodium chloride 0.9%, stomahesive in petrolatum [facility] Respiratory Care Department Progress Note Spontaneous [...] 0.9 sec (06/21/25538) Vitals MAP (mmHg): 69 (06/20/257) Heart Rate: 107 (06/21/25538) Resp: 20 (06/20/252347) SpO2: 100 % (06/21/25538) Suctioning/Secretions Secretion Amount: Scant (06/21/25 0435) Secretion Color: White (06/20/252347) Secretion Consistency: Thick (06/20/252347) ABG results No results for input(s): "PHART", "UQJ6DSC", "PO2ART", "TSU7XJN", "SO2ART", "F9DCZIMO" in the last 72 hours. Does this patient meet criteria for termination of mechanical ventilation No - Chronic Vent Dependent Name of physician notified via secure chat or in person : na (NA if patient did not meet criteria) Comments: Thank you for involving Respiratory in the care of this patient, Images from the original note were not included. [facility] - Infectious Diseases Attending Progress Note Subjective: [...] -- -- 65 -- 100 % -- 06/20/25824 -- -- -- 63 18 99 % [...] 1439 Aerobic and Anaerobic Culture with Stain [[id number]] (Abnormal) Wound from Trachea Final result Component Value No component results 06/09/2025 1411 06/13/2025 1002 Culture, Aerobic Bacteria with Gram Stain [[id number]] (Abnormal) Wound from Trachea Final result Component Value Culture Few respiratory dave present. Rare Pseudomonas aeruginosa Abnormal Gram Stain Result Many Polymorphonuclear leukocytes per low power field No organisms seen Collected Updated Procedure Result Status 06/07/2025 1129 06/07/2025 1142 Aerobic and Anaerobic Culture with Stain [[id number]] Body Fluid from Pleural Cavity, Left In process Component Value No component results 06/07/2025 1129 06/09/2025 0748 Culture, Aerobic Bacteria with Gram Stain [[id number]] Body Fluid from Pleural Cavity, Left Preliminary result Component Value Culture No growth at 48 hours P Gram Stain Result Few Polymorphonuclear leukocytes per low power field P No organisms seen P 06/07/2025 1129 06/07/2025 1142 Anaerobic culture [[id number]] Body Fluid from Pleural Cavity, Left In process Component Value No component results 06/07/2025 1025 06/09/2025 1301 Blood culture Site #2 - Suspected Infection [[id number]] Blood, Venous Preliminary result Component Value Blood Culture No growth at 48 hours P 06/07/2025 1014 06/09/2025 1301 Blood culture Site #1 - Suspected Infection [[id number]] Blood, Venous Preliminary result Component Value Blood Culture No growth at 48 hours P 06/06/2025 1732 06/08/2025 1413 Respiratory culture and Stain [[id number]] (Abnormal) Sputum Preliminary result Component Value Respiratory [...] 06/06/2025 1732 06/07/2025 1158 Pneumonia PCR Panel [[id number]] (Abnormal) Sputum Final result Component Value Staphylococcus [...] 06/06/2025 1429 06/09/2025 0801 Culture, Cath Tip [[id number]] (Abnormal) Foreign Body from Cannula Final result Component Value Culture >15 CFU Serratia marcescens Abnormal This organism possesses an ampC beta-lactamase. For serious infections outside of the urinary tract, third generation cephalosporins may not be effective, even if test results indicate the organism is susceptible. 06/02/2025173506/02/20252058 Gastrointestinal PCR Panel [[id number]] Stool from Per Rectum Final result Component [...] DIFFICILE by PCR with Reflex to EIA [[id number]] (Abnormal) Stool from Per Rectum Final result Component Value C. difficile toxin PCR Detected Abnormal 06/02/2025173506/02/20252207 C. difficile Toxins EIA [[id number]] (Abnormal) Stool from Per Rectum Final result Component Value C difficile Toxins A+B, EIA Positive Abnormal Lines: RIJ HD cath (06/12/25) Radiography/Echo/Other: XR chest 1 view [[id number]] Collected: 06/08/25 1402 Order Status: Completed Updated: [...] 06/08/2025 2:04 PM EDT US guided thoracentesis [[id number]] Collected: 06/07/25 140 Order Status: Completed Updated: [...] 2:09 PM EDT XR chest 1 view [[id number]] Collected: 06/06/252039 Order Status: Completed Updated: 06/06/252042 [...] PM EDT IR CVC tunneled catheter removal [[id number]] Collected: 06/06/251545 Order Status: Completed Updated: 06/06/251546 [...] 3:46 PM EDT XR chest 1 view [[id number]] Collected: 06/01/25 1217 Order Status: Completed Updated: [...] SBT indicated due to PT vent dependent. [facility] Nephrology Progress Note Subjective/ 75 y.o. year old female who we are seeing in consultation for ESRD and management of HD. Follows with Dr. Loredo and an outpatient HD schedule M-F at [facility]. 06/06: TDC removed for suspicion of [...] hemodialysis RECOMMENDATIONS: - HD schedule M-F at [facility], follows with Dr. Loredo. Tolerating HD today [...] Fluid Accumulation: No significant fluid accumulation Extremities Finished Yarn Examiner Strength: Not Performed Nutrition Assessment: Pt continues [...] tomorrow 06/21 then possible dc to facility ([facility]). Pt is s/p left thoracentesis 06/07 with 600ml dacosta fluid removed. Estimated Daily Nutrient Needs: Energy Requirements Based On: Kcal/kg Weight Used for Energy Requirements: [place] Weight for Energy Calculation (kg): 57 kg Total Energy Requirements (kcals/day): 4642-0044 kcals (25-30 kcals/kg) Weight Used for Protein Requirements: [place] Weight in Kg Used for Protein Requirements: [...] 226# 05/25/25) % Weight Change (Calculated): 1.4 [place] Body Weight (lbs) (Calculated): 125 lbs [place] Body Weight (Kg) (Calculated): 57 kg % [place] Body Weight (Calculated): 183.2 % BMI (kg/m2) [...] Planning: Enteral Nutrition Queta Steve RD Contact: *[phone] or via Secure Chat Images from the original note were not included. [facility] [address] [place], [place] [id number] Patient - Rosa Myers, Age - 75 y.o. - 1950 Room Number - [id number] Consulting - Sharyn Amaya MD Primary Care Physician - No [facility] care provider on file[id number] Date of Ad[facility] - 06/01/2025 10:53 AM Hospital Day - 19 Problem List[1] Chief Complaint: Anemia Rosa Myers [...] stable from pulmonary standpoint. Discharge back to [facility] once antibiotics completed. Case discussed with [...] TID, Grzegorz Chatterjee MD, 5 mg at 06/20/25 09 carvedilol (Coreg) tablet 3.125 mg, 3.125 [...] Sharyn Amaya MD, 25 Units at 06/20/25 09 Insulin Lispro (Humalog) injection 0-6 Units, 0-6 Units, SubCUTAneous, q6h, Grzegorz Chatterjee MD, 1 Units at 06/14/25 1202 ipratropium-albuterol (Duo-Neb) 0.5-2.5 mg/3 mL nebulizer solution 3 mL, 3 mL, Nebulization, TID, Neelima Hanks, RENITA - SIGNAL INTELLIGENCE ANALYST, 3 mL at 06/20/25 0825 LORazepam (Ativan) tablet 0.25 mg, 0.25 mg, Per G Tube, q8h PRN, Diana Zabala APRN - SIGNAL INTELLIGENCE ANALYST melatonin tablet 3 mg, 3 mg, Per G Tube, Nightly PRN, Diana Ezjaye PLANT PROTECTION OFFICER - SIGNAL INTELLIGENCE ANALYST miconazole (Micotin) 2 % powder, , Topical, BID, RENITA Gtz CNP, Given at 06/20/25902 midodrine (Proamatine) tablet 10 mg, 10 mg, Per G Tube, TID, Grzegorz Chatterjee MD, 10 mg at 06/20/2503 minocycline capsule 100 mg, 100 mg, Oral, BID, Kishore Wolff MD, 100 mg at 06/20/25 09 pantoprazole (ProtoNix) 40 mg in sodium [...] stomahesive in petrolatum Hospitalist Progress Note 06/20/2025 [phone]: Please secure chat me for patient care issues. [phone]: Please secure chat [facility] Hospitalist for any issues. Subjective: Admit Date: [...] Nepro w/CARB Steady; Continuous; No; 40; 40 @[id number]@ 24HR INTAKE/OUTPUT: Intake/Output Summary (Last 24 hours) [...] -June 21 - Location -extended-care facility[facility] [place] - Pending the following -completion of antibiotics Total time spent (which include face to face and non face to face encounters) : 54 minutes Toxic drug monitoring/narrow therapeutic index drug monitoring : # Drug name : # Route administered : # Method of monitoring : No emergency contact information on file. Sharyn Amaya MD Division of Hospitalist Medicine [employer] PAGER: Epic chat [1] No past medical [...] petrolatum, , Topical, 3 times per day [facility] Respiratory Care Department Progress Note Spontaneous [...] ABG results No results for input(s): "PHART", "NNX1DLN", "PO2ART", "HBU3QDO", "SO2ART", "E0PNGTEK" in the last 72 hours. Does this patient meet criteria for termination of mechanical ventilation No - Chronic Vent Dependent Comments: Thank you for involving Respiratory in the care of this patient, [facility] Respiratory Care Department Progress Note As [...] Respiratory in the care of this patient, [facility] Nephrology Progress Note Subjective/ 75 y.o. year old female who we are seeing in consultation for ESRD and management of HD. Follows with Dr. Loredo and an outpatient HD schedule M- at [facility]. 06/06: TDC removed for suspicion of [...] Lying Pulse: 68 [phone] 64 Resp: Temp: 36.6 C (97.8 F) TempSrc: Axillary [...] hemodialysis RECOMMENDATIONS: - HD schedule M-F at [facility], follows with Dr. Loredo. 1 L [...] from the original note were not included. [facility], Pul[place] [address] [place], [place] [id number] Patient - Rosa Myers, Age - 75 y.o. - 1950 Room Number - 222-04/222-04 A Consulting - Sharyn Amaya MD Primary Care Physician - No primary care provider on file. [id number] Date of Admission - 06/01/2025 10:53 AM [...] stable from pulmonary standpoint. Discharge back to [facility] once antibiotics completed. Case discussed with [...] , Raine Etienne MD, 3.125 mg at 06/19/25 [...] Units, IntraCATHeter, PRN, Mi Singh APRN - SIGNAL INTELLIGENCE ANALYST, 1,800 Units at 06/18/25 1338 heparin injection 1,200-2,000 Units, 1,200-2,000 Units, IntraCATHeter, PRN, Mi Singh APRN - SIGNAL INTELLIGENCE ANALYST, 1,700 Units at 06/18/25 1338 heparin injection [...] Tube, Nightly PRN, Diana Zabala APRN - SIGNAL INTELLIGENCE ANALYST miconazole (Micotin) 2 % powder, , Topical, [...] from the original note were not included. [facility] Wound Care Progress Note Rosa Myers AGE: 75 y.o. GENDER: female : 1950 Subjective: HISTORY of PRESENT ILLNESS HPI Rosa Myers is a 75 y.o. female who presents for a wound follow up. HPI: Ms. Myers is a 75 y.o. female who presents to the emergency department with chief complaint of abnormal blood counts. Patient was sent to us from her custodial for lab drawl that shows hemoglobin of [...] to follow Recommend to follow up at [facility] Outpatient wound care center after hospital discharge. Any questions or concerns please secure chat "[facility] wound/ostomy". I personally obtained the soto and [...] needed (forehead itching). Hospitalist Progress Note 06/19/2025 [phone]: Please secure chat [place] for patient care issues. [phone]: Please secure chat [facility] Hospitalist for any issues. Subjective: Admit Date: 06/01/2025 PCP: No primary care provider on file. Room#: 222-04/222-04 A Brief History:Rosa Myers is a 75 y.o. female who presents with Anemia She is a patient from [facility], chronic tracheostomy and chronic [...] Nepro w/CARB Steady; Continuous; No; 40; 40 @MZDJ7WDERMI@ 24HR INTAKE/OUTPUT: Intake/Output Summary (Last 24 hours) at 06/19/2025 0954 Last data filed at 06/19/2025 0731 Gross per 24 hour Intake 2138 ml Output -- Net 2138 ml Past Medical History: Medical History[1] LABS: CBC: Recent Labs 06/17/2540906/18/25 0647 06/19/25 0629 WBC 7.8 6.3 7.6 RBC 3.15* 2.85* 2.91* HGB 8.4* 7.6* 7.8* HCT 26.6* 24.4* 25.0* MCV 84.4 85.6 85.9 RDW 17.8* 18.2* 18.2* PLT 230 237 250 BMP: Recent Labs 06/17/2540906/18/25 0647 06/19/25 0629 NA [...] Sharyn Amaya MD Division of Hospitalist Medicine [employer] [facility] [employer] PAGER: Epic chat [1] No past medical [...] petrolatum, , Topical, 3 times per day [facility] Respiratory Care Department Progress Note Spontaneous [...] ABG results No results for input(s): "PHART", "OQK0PNZ", "PO2ART", "TGD1EUN", "SO2ART", "X5OBLMWP" in the last 72 hours. Does this patient meet criteria for termination of mechanical ventilation No - Chronic Vent Dependent Name of physician notified via secure chat or in person : (NA if patient did not meet criteria) Comments: Thank you for involving Respiratory in the care of this patient, Hospitalist Progress Note 06/18/2025 [phone]: Please secure chat me for patient care issues. [phone]: Please secure chat [facility] Hospitalist for any issues. Subjective: Admit Date: [...] Nepro w/CARB Steady; Continuous; No; 40; 40 @VXYV7DQKLTE@ 24HR INTAKE/OUTPUT: No intake or output data [...] MD Division of Hospitalist Medicine Acute care [facility] PAGER: Epic chat [1] No past [...] petrolatum, , Topical, 3 times per day [facility] Nephrology Progress Note Subjective/ 75 y.o. year old female who we are seeing in consultation for ESRD and management of HD. Follows with Dr. Loredo and an outpatient HD schedule M- at [facility]. 06/06: TDC removed for suspicion of [...] hemodialysis RECOMMENDATIONS: - HD schedule M- at [facility], follows with Dr. Loredo. 600 mL removed [...] the above assessment and plan with the ENGRAVER COPPERPLATE. I agree with above note. DICK MWF. [facility] Geriatric Medicine Inpatient Consult Service [...] illnesses --Since March, she has been at [facility] --candelaria lift at baseline -Per her custodial facesheet, her Yamil and son Marcell are her emergency contacts 06/18: Anticipate return to ECF once medically improved OK to discharge to ECF from geriatric perspective once cleared medically Follow-up: prn, please page with any questions/issues Subjective Chief Complaint: Chief Complaint Patient presents with Other Sent from [facility] for low HGB, arrived via [...] who was [facility] for severe [facility] (hgb 6.5). She [...] 3.23 06/14/2025 Lab Results Component Value Date [id number] 1,032 (H) 06/02/2025 No results found for: [...] mg, 5 mg, Per G Tube, TID, Grzeogrz Chatterjee MD, 5 mg at 06/18/25 0844 [...] 1,200-2,000 Units, 1,200-2,000 Units, IntraCATHeter, PRN, Mi SinghRENITA - RENEE, 1,700 Units at 06/15/25 1303 heparin injection [...] from the original note were not included. [facility] Wound Care Progress Note Rosa Myers AGE: 75 y.o. GENDER: female : 1950 Subjective: HISTORY of PRESENT ILLNESS HPI Rosa Myers is a 75 y.o. female who presents for a wound follow up. HPI: Ms. Myers is a 75 y.o. female who presents to the emergency department with chief complaint of abnormal blood counts. Patient was sent to us from her custodial for lab drawl that shows hemoglobin of [...] to follow Recommend to follow up at [facility] Outpatient wound care center after hospital discharge. Any questions or concerns please secure chat "[facility] wound/ostomy". I personally obtained the soto and [...] from the original note were not included. [facility], Pul[place] [address] [place] [address] Patient - Rosa Myers, Age - 75 y.o. - 1950 Room Number - 222-04/222-04 A Consulting - Sharyn Amaya MD Primary Care Physician - No primary care provider on file. Date of Admission - 06/01/2025 10:53 AM Hospital Day - 17 Problem List[1] Chief Complaint: Anemia Rosa Myers [...] Full Code Discharge planning: Discharge back to [facility] once antibiotics completed. Case discussed with [...] 40 mg, Per G Tube, Daily, Grzegorz Shena, MD, 40 mg at 06/18/25 0844 busPIRone (Buspar) tablet 5 mg, 5 mg, Per G Tube, TID, Grzegorz Chatterjee MD, 5 mg at 06/18/25 08 carvedilol (Coreg) tablet 3.125 mg, 3.125 mg, [...] day on Wednesday, Mi Singh APRN - SIGNAL INTELLIGENCE ANALYST, 2,600 Units at 06/18/25 0855 FLUoxetine (PROzac) capsule 20 mg, 20 mg, Per G Tube, Daily, Grzegorz Chatterjee MD, 20 mg at 06/18/25 0844 furosemide (Lasix) tablet 20 mg, 20 mg, Per G Tube, Daily, Grzegorz Chatterjee MD, 20 mg at 06/18/25 08 glucagon (human recombinant) injection 1 mg, 1 mg, IntraMUSCular, PRN, Sharyn Amaya MD glucose oral gel 15 g, 15 g, Oral, PRN, Sharyn Amaya MD heparin injection 1,200-2,000 Units, 1,200-2,000 Units, IntraCATHeter, PRN, Mi Singh APRN - RENEE, 1,800 Units at 06/15/25 1303 heparin injection 1,200-2,000 Units, 1,200-2,000 Units, IntraCATHeter, PRN, Mi Packvny, RENITA - RENEE, 1,700 Units at 06/15/25 1303 heparin injection [...] 0.9 % infusion, 250 mL/hr, IntraVENous, PRN, Gneo Waddell MD sodium chloride 0.9 % infusion, [...] chloride, sodium chloride 0.9%, stomahesive in petrolatum [facility] Respiratory Care Department Progress Note Spontaneous [...] (06/18/25502) Resp: 15 (06/18/25502) SpO2: 96 % (09/22/25 0503) Suctioning/Secretions Secretion Amount: Scant (06/18/25 0503) Secretion Color: White (06/17/25 0844) Secretion Consistency: Thick (06/17/25 0844) ABG results No results for input(s): "PHART", "PLA0BFN", "PO2ART", "KGW5WBH", "SO2ART", "Y3YVZOAO" in the last 72 hours. Does this patient meet criteria for termination of mechanical ventilation No - Chronic Vent Dependent Name of physician notified via secure chat or in person : na (NA if patient did not meet criteria) Comments: Thank you for involving Respiratory in the care of this patient, [facility] Nephrology Progress Note Subjective/ 75 y.o. year old female who we are seeing in consultation for ESRD and management of HD. Follows with Dr. Loredo and an outpatient HD schedule M- at [facility]. 06/06: TDC removed for suspicion of [...] hemodialysis RECOMMENDATIONS: - HD schedule M- at [facility], follows with Dr. Loredo. Tolerated HD Wednesday [...] Notes reviewed and plan discussed with the ENGRAVER COPPERPLATE. Agree with above note except Any variance is noted below. Lynn Powell MD [facility] [phone] [facility] Hospitalist Progress note [phone]: Please page me ([phone]) for patient care issues. [phone]: Please page [facility] Hospitalist for any issues. Subjective: Admit Date: [...] 12 10 12 LIVER PROFILE: Recent Labs 06/15/25 0225 06/16/25 0545 06/17/25 0410 AST 26 26 28 [...] MD Division of Hospitalist Medicine Inpatient Medical Services/[facility] [1] [2] atorvastatin, 40 mg, [...] petrolatum, , Topical, 3 times per day [facility] Respiratory Care Department Progress Note Spontaneous [...] ABG results No results for input(s): "PHART", "HCT6IOI", "PO2ART", "FSZ9AZW", "SO2ART", "X1VMUUIP" in the last 72 hours. Does this patient meet criteria for termination of mechanical ventilation No - Chronic Vent Dependent Name of physician notified via secure chat or in person : na (NA if patient did not meet criteria) Comments: Thank you for involving Respiratory in the care of this patient, [facility] Nephrology Progress Note Subjective/ 75 y.o. year old female who we are seeing in consultation for ESRD and management of HD. Follows with Dr. Loredo and an outpatient HD schedule M- at [facility]. 06/06: TDC removed for suspicion of [...] hemodialysis RECOMMENDATIONS: - HD schedule M-F at [facility], follows with Dr. Loredo. Tolerated [...] Notes reviewed and plan discussed with the ENGRAVER COPPERPLATE. Agree with above note except Any variance is noted below. Lynn Powell MD [facility] [phone] [facility] Hospitalist Progress note [phone]: Please page me ([phone]) for patient care issues. [phone]: Please page [facility] Hospitalist for any issues. Subjective: Admit Date: [...] ml LABS: CBC: Recent Labs 06/14/25 0402 06/15/2522406/16/25 0545 WBC 5.6 6.1 6.2 RBC 3.21* [...] MD Division of Hospitalist Medicine Inpatient Medical Services/[facility] [1] [2] atorvastatin, 40 mg, [...] petrolatum, , Topical, 3 times per day [facility] Respiratory Care Department Progress Note Spontaneous [...] ABG results No results for input(s): "PHART", "ADS6NTD", "PO2ART", "LNO0VEI", "SO2ART", "E1WGHOUE" in the last 72 hours. Does this [...] energy intake (EN meeting patinet needs at [facility] and) Weight Loss: Mild weight loss (specify amount and time period) (-6.6% weight loss over six months per EMR) Body Fat Loss: Mild body fat loss Buccal region, Orbital Muscle Mass Loss: Mild muscle mass loss Clavicles (pectoralis & deltoids), Temples (temporalis), Thigh (quadraceps) Fluid Accumulation: Severe Extremities Finished Yarn Examiner Strength: Normal telesales advisor strength Nutrition Assessment: 75 year old woman who remains admitted to [facility] ICU (for vent support, being followed by IMS) following routine blood draw showing anemia at [facility]. +2 u PRBC since admit. Nephrology consulted and supporting for ESRD and management on inpatient HD. TDC was removed on 06/06 due to infection, +new TDC placed on 06/12. Continues a MWF HD schedule while admitted, -2000 mL removed and well tolerated on 06/13 (M-F schedule at [facility]). Pulmonology supporting, +trach to vent. ID consulted and supporting for PNA- Pseudomonas aeruginosa, Serratia marcescens, and stenotrophomonas maltophilia; CDAD, and Serratia marcescens of former TDC. 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 Remains admitted to [facility] through 06/21 for IV antibiotics- as facility cannot accept back. Sitting up in bed with HD running at time of re-assessment. EN continues to goal, denies: pain, nausea, GI distress. Estimated Daily Nutrient Needs: Energy Requirements Based On: Kcal/kg Weight Used for Energy Requirements: [place] Weight for Energy Calculation (kg): 57 kg Total Energy Requirements (kcals/day): 2475-2960 (25-30 kcal/kg IBW) Weight Used for Protein Requirements: [place] Weight in Kg Used for Protein Requirements: [...] 226# 05/25/25) % Weight Change (Calculated): 1.4 [place] Body Weight (lbs) (Calculated): 125 lbs [place] Body Weight (Kg) (Calculated): 57 kg % [place] Body Weight (Calculated): 183.2 % BMI (kg/m2) [...] Enteral Nutrition Raquel Brady RDN, LDN, Contact: *[phone] [facility] Hospitalist Progress note [phone]: Please page me ([phone]) for patient care issues. [phone]: Please page [facility] Hospitalist for any issues. Subjective: Admit Date: [...] MD Division of Hospitalist Medicine Inpatient Medical Services/[facility] [1] [2] atorvastatin, 40 mg, [...] petrolatum, , Topical, 3 times per day [facility] Nephrology Progress Note Subjective/ 75 y.o. year old female who we are seeing in consultation for ESRD and management of HD. Follows with Dr. Loredo and an outpatient HD schedule M-F at [facility]. 06/06: TDC removed for suspicion of [...] hemodialysis RECOMMENDATIONS: - HD schedule M-F at [facility], follows with Dr. Loredo. 2 L removed [...] the above assessment and plan with the ENGRAVER COPPERPLATE. I agree with above note. HD MWF. [facility] Geriatric Medicine Inpatient Consult Service [...] illnesses --Since March, she has been at [facility] --candelaria lift at baseline -Per her custodial facesheet, her Yamil and son Marcell are [...] who was admitted to acute care from group home care ([facility]) for severe anemia (hgb 6.5). She [...] 543 ms QTC Interval 552 ms P [place] 0 degrees QRS [place] -11 degrees T Wave [place] 188 degrees [place] Interval 65 ms POCT glucose meter Collection [...] 3.23 06/14/2025 Lab Results Component Value Date [id number] 1,032 (H) 06/02/2025 No results found for: [...] Nebulization, q6h PRN, Neelima Hanks APRN - SIGNAL INTELLIGENCE ANALYST atorvastatin (Lipitor) tablet 40 mg, 40 mg, [...] Units, IntraCATHeter, PRN, Mi Singh APRN - SIGNAL INTELLIGENCE ANALYST, 1,400 Units at 06/11/25 1404 heparin injection 1,200-2,000 Units, 1,200-2,000 Units, IntraCATHeter, PRN, Mi Singh APRN - SIGNAL INTELLIGENCE ANALYST, 1,400 Units at 06/11/25 1402 heparin injection [...] mL, Nebulization, q4h, Neelima Hanks APRN - SIGNAL INTELLIGENCE ANALYST, 3 mL at 06/15/25 0743 LORazepam (Ativan) tablet 0.25 mg, 0.25 mg, Per G Tube, q8h PRN, Diana Zabala APRN - RENEE melatonin tablet 3 mg, 3 mg, Per G Tube, Nightly PRN, Diana Zabala APRN - SIGNAL INTELLIGENCE ANALYST miconazole (Micotin) 2 % powder, , Topical, [...] Nightly, Grzegorz Chatterjee MD, 40 mg at 06/14/25 2121 polyethylene glycol (PEG) 3350 (Miralax) packet 17 [...] 4 mL, 4 mL, Nebulization, BID, Neelima Hanks, RENITA - SIGNAL INTELLIGENCE ANALYST, 4 mL at 06/15/25 0735 stomahesive in petrolatum (ET Mix), , Topical, PRN, RENITA Gtz CNP, Given at 06/08/25 1857 stomahesive in petrolatum (ET Mix), , Topical, 3 times per day, RENITA Gtz CNP, Given at 06/15/25 0632 [facility] Respiratory Care Department Progress Note Spontaneous [...] ABG results No results for input(s): "PHART", "ZIX1WDQ", "PO2ART", "JPI9LKR", "SO2ART", "S4BZWZCM" in the last 72 hours. Does this patient meet criteria for termination of mechanical ventilation No - Chronic Vent Dependent Name of physician notified via secure chat or in person : N/A (NA if patient did not meet criteria) Comments: Thank you for involving Respiratory in the care of this patient, [facility] Nephrology Progress Note Subjective/ 75 y.o. year old female who we are seeing in consultation for ESRD and management of HD. Follows with Dr. Loredo and an outpatient HD schedule M- at [facility]. 06/06: TDC removed for suspicion of [...] per 24 hour Intake 1727 ml Output 23343 ml Net -75333 ml Wt Readings from Last 3 Encounters: [...] hemodialysis RECOMMENDATIONS: - HD schedule M-F at [facility], follows with Dr. Loredo. 2 L [...] the above assessment and plan with the ENGRAVER COPPERPLATE. I agree with above note. HD MWF. Images from the original note were not included. [facility] Wound Care Progress Note Rosa Myers AGE: 75 y.o. GENDER: female : 1950 Subjective: HISTORY of PRESENT ILLNESS HPI Rosa Myers is a 75 y.o. female who presents for a wound follow up. HPI: Ms. Myers is a 75 y.o. female who presents to the emergency department with chief complaint of abnormal blood counts. Patient was sent to us from her custodial for lab drawl that shows hemoglobin of [...] and dry thoroughly, apply Miconazole powder, leave SUPPORT DBA BID and PRN Sacral: Resolved continue for prevention - cleanse with soap and water, apply ET mix TID and PRN, leave SUPPORT DBA Right medial thigh Resolved continue for prevention - cleanse with soap and water, apply ET mix TID and PRN, leave SUPPORT DBA -continue ICU bed -Q2hr/PRN turns -glide sheets for T&R -continence checks Q1-2 Hrs/PRN Nutritional support Wound Care to follow Recommend to follow up at [facility] Outpatient wound care center after hospital discharge. Any questions or concerns please secure chat "[facility] wound/ostomy". I personally obtained the soto and [...] Barraza DO at 06/19/2025 12:02 PM EDT [facility] Hospitalist Progress note [phone]: Please page me ([phone]) for patient care issues. [phone]: Please page [facility] Hospitalist for any issues. Subjective: Admit Date: [...] per 24 hour Intake 1727 ml Output 93122 ml Net -54643 ml LABS: CBC: Recent Labs 06/12/25 0550 [...] MD Division of Hospitalist Medicine Inpatient Medical Services/[facility] [1] [2] atorvastatin, 40 mg, [...] from the original note were not included. [facility], Pulmonary Medicine [address] [place] [address] Patient - Rosa Myers, Age - 75 [...] per 24 hour Intake 1727 ml Output 07204 ml Net -78521 ml Physical Exam:unchanged compared to 06/07 Physical [...] Patient remains stable to discharge back to [facility] from pulmonary standpoint Case discussed with nurse and patient Questions and concerns addressed. [1] Patient Active Problem List Diagnosis Anemia Anemia, unspecified type Moderate malnutrition (CMS/HCC) ([facility]) [2] No Known Allergies [3] Current Facility-Administered [...] , Raine Etienne MD, 3.125 mg at 06/14/25917 [...] mL, 3 mL, Nebulization, q4h, Neelima Hanks, PLANT PROTECTION OFFICER - SIGNAL INTELLIGENCE ANALYST, 3 mL at 06/14/25 0815 miconazole (Micotin) 2 % powder, , Topical, BID, Patrica Weinstein APRN - SIGNAL INTELLIGENCE ANALYST, Given at 06/14/25917 midodrine (Proamatine) tablet 10 [...] sodium chloride, sodium chloride, stomahesive in petrolatum [facility] Nephrology Progress Note Subjective/ 75 y.o. year old female who we are seeing in consultation for ESRD and management of HD. Follows with Dr. Loredo and an outpatient HD schedule M- at [facility]. 06/06: TDC removed for suspicion of [...] 06/13/2025 Phosphorus: No results found for: "PHOS" y.o. female with ESRD N18.6 C. Difficile A04.72 Anemia D63.1 Volume overload E87.70 Hyponatremia E87.1 Chronic respiratory failure J96.10 Diabetes E11.22 Dependence on hemodialysis RECOMMENDATIONS: - HD schedule M-F at [facility], follows with Dr. Loredo. 1.6 L removed [...] the above assessment and plan with the ENGRAVER COPPERPLATE. I agree with above note. [facility] Hospitalist Progress note [phone]: Please page me ([phone]) for patient care issues. [phone]: Please page [facility] Hospitalist for any issues. Subjective: Admit Date: 06/01/2025 PCP: No primary care provider on file. Room#: 222-/222-04 José Miguel Myers is a 75 y.o. female who presents with Anemia Interval History: No sob, cough, n/v. Tolerating tube feeds. Discussed with RYNE Agee, separately Diet, tube feeding no tray PEG; Nepro w/CARB Steady; Continuous; No; 40; 40 24HR INTAKE/OUTPUT: Intake/Output Summary (Last 24 hours) at 06/13/2025 1640 Last data filed at 06/13/2025 1536 Gross per 24 hour Intake 2043 ml Output 75678 ml Net -97835 ml LABS: CBC: Recent Labs 06/11/25 0552 [...] MD Division of Hospitalist Medicine Inpatient Medical Services/[facility] [1] [2] atorvastatin, 40 mg, [...] from the original note were not included. [facility], Pulmonary Medicine [address] [place] [address] Patient - Rosa Myers, Age - 75 y.o. - 1950 Room Number - 222-04/222-04 A Consulting - Robert Jimenez MD Primary Care Physician - No primary care provider on file. [id number] Date of Admission - 06/01/2025 10:53 AM Hospital Day - 12 Problem List[1] Chief Complaint: Anemia Rosa Myers [...] Patient remains stable to discharge back to [facility] from pulmonary standpoint Case discussed with [...] 2.5 mg, Nebulization, q6h PRN, RENITA Tyler SIGNAL INTELLIGENCE ANALYST atorvastatin (Lipitor) tablet 40 mg, 40 mg, [...] Sharyn Amaya MD, 5,000 Units at 06/12/25 2159 insulin glargine (Lantus) injection 25 Units, 25 Units, SubCUTAneous, BID, Sharyn Amaya MD, 25 Units at 06/12/25 2159 Insulin Lispro (Humalog) injection 0-6 Units, 0-6 Units, SubCUTAneous, q6h, Grzegorz Chatterjee MD, 1 Units at 06/12/25 1318 ipratropium-albuterol (Duo-Neb) 0.5-2.5 mg/3 mL nebulizer solution 3 mL, 3 mL, Nebulization, q4h, RENITA Tyler CNP, 3 mL at 06/13/25 0955 miconazole (Micotin) 2 % powder, , Topical, BID, RENITA Gtz CNP, Given at 06/12/25 2222 midodrine (Proamatine) tablet [...] 4 mL, 4 mL, Nebulization, BID, Neelima Hanks, RENITA - SIGNAL INTELLIGENCE ANALYST, 4 mL at 06/13/25 1008 stomahesive in [...] sodium chloride, sodium chloride, stomahesive in petrolatum [facility] Respiratory Care Department Progress Note Spontaneous [...] ABG results No results for input(s): "PHART", "FTH0CFY", "PO2ART", "PLE4LUS", "SO2ART", "C3EEISKY" in the last 72 hours. Does this [...] from the original note were not included. [facility] - Infectious Diseases Attending Progress Note Subjective: [...] 127/96 -- -- 78 -- 98 % 06/12/25 2237 -- -- -- 72 (!) 30 91 [...] 1142 Aerobic and Anaerobic Culture with Stain [[id number]] Body Fluid from Pleural Cavity, Left In process Component Value No component results 06/07/2025 1129 06/09/2025 0748 Culture, Aerobic Bacteria with Gram Stain [[id number]] Body Fluid from Pleural Cavity, Left Preliminary result Component Value Culture No growth at 48 hours P Gram Stain Result Few Polymorphonuclear leukocytes per low power field P No organisms seen P 06/07/2025 1129 06/07/2025 1142 Anaerobic culture [[id number]] Body Fluid from Pleural Cavity, Left In process Component Value No component results 06/07/2025 1025 06/09/2025 1301 Blood culture Site #2 - Suspected Infection [[id number]] Blood, Venous Preliminary result Component Value Blood Culture No growth at 48 hours P 06/07/2025 1014 06/09/2025 1301 Blood culture Site #1 - Suspected Infection [[id number]] Blood, Venous Preliminary result Component Value Blood Culture No growth at 48 hours P 06/06/2025 1732 06/08/2025 1413 Respiratory culture and Stain [[id number]] (Abnormal) Sputum Preliminary result Component Value Respiratory [...] 06/06/2025 1732 06/07/2025 1158 Pneumonia PCR Panel [[id number]] (Abnormal) Sputum Final result Component Value Staphylococcus [...] 06/06/2025 1429 06/09/2025 0801 Culture, Cath Tip [[id number]] (Abnormal) Foreign Body from Cannula Final result Component Value Culture >15 CFU Serratia marcescens Abnormal This organism possesses an ampC beta-lactamase. For serious infections outside of the urinary tract, third generation cephalosporins may not be effective, even if test results indicate the organism is susceptible. 06/02/2025173506/02/2025 205 Gastrointestinal PCR Panel [[id number]] Stool from Per Rectum Final result Component [...] Rotavirus A Not Detected Sapovirus Not Detected 06/02/20251736 0506/02/2025 1955 C. DIFFICILE by PCR with Reflex to EIA [[id number]] (Abnormal) Stool from Per Rectum Final result Component Value C. difficile toxin PCR Detected Abnormal 06/02/2025 1736 06/02/20258 C. difficile Toxins EIA [[id number]] (Abnormal) Stool from Per Rectum Final result Component Value C difficile Toxins A+B, EIA Positive Abnormal Lines: RIJ HD cath (06/12/25) Radiography/Echo/Other: XR chest 1 view [[id number]] Collected: 06/08/25 140 Order Status: Completed Updated: [...] 06/08/2025 2:04 PM EDT US guided thoracentesis [[id number]] Collected: 06/07/25 140 Order Status: Completed Updated: 06/07/25 141 Narrative: Patient Name: ROSA MYERS : 1950 [...] 2:09 PM EDT XR chest 1 view [[id number]] Collected: 06/06/252039 Order Status: Completed Updated: 06/06/252042 [...] PM EDT IR CVC tunneled catheter removal [[id number]] Collected: 06/06/25 154 Order Status: Completed Updated: 06/06/251546 Narrative: [facility] 1950 [id number] Ex[facility] Date/Time: 06/06/2025 14:01 Procedure: IR CVC [...] 3:46 PM EDT XR chest 1 view [[id number]] Collected: 06/01/25 121 Order Status: Completed Updated: [...] benefits, and consideration of use of antimicrobials. [facility] Respiratory Care Department Progress Note Spontaneous [...] ABG results No results for input(s): "PHART", "FQJ3GKZ", "PO2ART", "DWC3XUH", "SO2ART", "N1BPATNK" in the last 72 hours. Does this patient meet criteria for termination of mechanical ventilation Yes- Notified physician below Name of physician notified via secure chat or in person : N/A (NA if patient did not meet criteria) Comments: Thank you for involving Respiratory in the care of this patient, [facility] Nephrology Progress Note Subjective/ 75 y.o. year old female who we are seeing in consultation for ESRD and management of HD. Follows with Dr. Loredo and an outpatient HD schedule M-F at [facility]. 06/06: TDC removed for suspicion of [...] hemodialysis RECOMMENDATIONS: - HD schedule M- at [facility], follows with Dr. Loredo. 1.6 L [...] sodium chloride, sodium chloride, stomahesive in petrolatum [facility] Hospitalist Progress note [phone]: Please page wv ([phone]) for patient care issues. [phone]: Please page [facility] Hospitalist for any issues. Subjective: Admit Date: [...] MD Division of Hospitalist Medicine Inpatient Medical Services/[facility] [1] [2] atorvastatin, 40 mg, [...] from the original note were not included. [facility], Pulmonary Medicine [address] [place] [id number] Patient - Rosa Myers, Age - 75 y.o. - 1950 Room Number - 222-04/222-04 A Consulting - Robert Jimenez MD Primary Care Physician - No primary care provider on file. [facility] # - [id number] Date of Admission - 06/01/2025 10:53 AM [...] Discharge planning: Stable to discharge back to [facility] from pulmonary standpoint Case discussed with nurse and patient Questions and concerns addressed. [1] Patient Active Problem List Diagnosis Anemia Anemia, unspecified type Moderate malnutrition (CMS/HCC) ([facility]) [2] No Known Allergies [3] Current Facility-Administered [...] Nebulization, q6h PRN, Neelima Hanks APRN - SIGNAL INTELLIGENCE ANALYST atorvastatin (Lipitor) tablet 40 mg, 40 mg, [...] Hanks APRN - RENEE, 3 mL at 06/12/25 0808 miconazole (Micotin) [...] sodium chloride, sodium chloride, stomahesive in petrolatum [facility] Respiratory Care Department Progress Note Spontaneous [...] ABG results No results for input(s): "PHART", "HZB3FTA", "PO2ART", "CJM3NWT", "SO2ART", "U5GUWZSL" in the last 72 hours. Does this patient meet criteria for termination of mechanical ventilation No - Chronic Vent Dependent Name of physician notified via secure chat or in person : NA (NA if patient did not meet criteria) Comments: Thank you for involving Respiratory in the care of this patient, [facility] Nephrology Progress Note Subjective/ 75 y.o. year old female who we are seeing in consultation for ESRD and management of HD. Follows with Dr. Loredo and an outpatient HD schedule M- at [facility]. 06/06: TDC removed for suspicion of [...] hemodialysis RECOMMENDATIONS: - HD schedule M-F at [facility], follows with Dr. Loredo. Tolerating HD [...] the above assessment and plan with the ENGRAVER COPPERPLATE. I agree with above note. Needs Temp [...] removed. Plan is to go back to [facility]. Estimated Daily Nutrient Needs: Energy Requirements Based On: Kcal/kg Weight Used for Energy Requirements: [place] Weight for Energy Calculation (kg): 57 kg Total Energy Requirements (kcals/day): 0945-5137 (25-30 kcal/kg IBW) Weight Used for Protein Requirements: [place] Weight in Kg Used for Protein Requirements: [...] 226# 05/25/25) % Weight Change (Calculated): -8.4 [place] Body Weight (lbs) (Calculated): 125 lbs [place] Body Weight (Kg) (Calculated): 57 kg % [place] Body Weight (Calculated): 183.2 % BMI (kg/m2) [...] Planning: Enteral Nutrition Queta Steve RD Contact: *[phone] or via Secure Chat Images from the original note were not included. [facility], Pulmonary Medicine [address] [place] [id number] Patient - Rosa Myers, Age - 75 y.o. - 1950 Room Number - 222-04/222-04 A Consulting - Raine Etienne MD Primary Care Physician - No primary care provider on file. Date of Admission - 06/01/2025 10:53 AM Hospital Day - 10 Problem List[1] Chief Complaint: Jose Maria Myers is a 75 y.o. female who pulmonary is following for VDRF Subjective/Interval History: Patient resting in bed getting HD this morning. Stable on vent. Denied any shortness of breath or chest pain. Secretions improved per MEDICAL RECORDS TECHNICIAN. No new overnight concerns. Vent settings: Mode [...] Code Discharge planning: Anticipate discharge back to [facility] once medically stable Case discussed with [...] injection 1,200-2,000 Units, 1,200-2,000 Units, IntraCATHeter, MALCOLMN, RENITA Clifford CNP, 1,600 Units at 06/04/25 192 heparin injection 1,200-2,000 Units, 1,200-2,000 Units, IntraCATHeter, Carmela PRATT DO, 1,400 Units at 06/08/25 181 heparin injection 1,200-2,000 Units, 1,200-2,000 Units, IntraCATHeter, Carmela PRATT DO, 1,200 Units at 06/08/25 181 heparin [...] sodium chloride, sodium chloride, stomahesive in petrolatum [facility] Hospitalist Progress note [phone]: Please page wv ([phone]) for patient care issues. [phone]: Please page [facility] Hospitalist for any issues. 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 She was admitted to hospital on ICU floor given Vent status but followed by hospital medicine, pulmonology and nephrology during stay. Vocational Technical Education Director consulted for management of tube feeding = [...] MD Division of Hospitalist Medicine Inpatient Medical Services/[facility] [1] dextrose 5 % and [...] petrolatum, , Topical, 3 times per day [facility] Respiratory Care Department Progress Note Spontaneous [...] ABG results No results for input(s): "PHART", "YYN0UWX", "PO2ART", "DWN2NMQ", "SO2ART", "D4DBGSWQ" in the last 72 hours. Does this patient meet criteria for termination of mechanical ventilation No - Chronic Vent Dependent Comments: Thank you for involving Respiratory in the care of this patient, [facility] Nephrology Progress Note Subjective/ 75 y.o. year old female who we are seeing in consultation for ESRD and management of HD. Follows with Dr. Loredo and an outpatient HD schedule M- at [facility]. 06/04: last iHD tx, 1.6 L [...] hemodialysis RECOMMENDATIONS: - HD schedule M-F at [facility], follows with Dr. Loredo. S/p iHD 06/04 [...] sodium chloride, sodium chloride, stomahesive in petrolatum [facility] Hospitalist Progress note [phone]: Please page me ([phone]) for patient care issues. [phone]: Please page [facility] Hospitalist for any issues. 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 She was admitted to hospital on ICU floor given Vent status but followed by hospital medicine, pulmonology and nephrology during stay. Vocational Technical Education Director consulted for management of tube feeding = [...] 10 11 10 LIVER PROFILE: Recent Labs 06/08/2511406/09/25 0541 06/10/25 0508 AST 16 18 25 [...] Facility - Pending the following -clinical improvement, acquisition consultant recommendations Total time spent (which include face to face and non face to face encounters) : 52 minutes Toxic drug monitoring/narrow therapeutic index drug monitoring : # Drug name : # Route administered : # Method of monitoring : No emergency contact information on file. Advance Directive: Full Code Discharge planning: TBD Raine Etienne MD Division of Hospitalist Medicine Inpatient Medical Services/[facility] [1] dextrose 5 % and [...] with transfusion of blood components. DR Etienne [facility] Respiratory Care Department Progress Note Spontaneous Awakening Trial Wean Screen SpO2>/=88%: Yes (06/10/25247) FiO2</=50%: Yes (06/10/25247) PEEP </=8cmH2O: Yes (06/10/25247) HR <140 BPM: Yes (06/10/25247) RR </= 35 breaths/min: Yes (06/10/25247) MAP >/= 65mmHg: Yes (06/10/25247) Arterial pH >7.30: Yes (06/09/25330) Safety Screen Spontaneous Breathing Trial (SBT - RT) : SBT Held - Chronic Ventilator Dependent (06/10/25 0248) Spontaneous Breathing Trial Vent Settings Vent Mode: [...] ABG results No results for input(s): "PHART", "CYN8OTW", "PO2ART", "AAY6YWM", "SO2ART", "C3RXVIFV" in the last 72 hours. Does this patient meet criteria for termination of mechanical ventilation No - Chronic Vent Dependent Comments: Thank you for involving Respiratory in the care of this patient, [facility] Nephrology Progress Note Subjective/ 75 y.o. year old female who we are seeing in consultation for ESRD and management of HD. Follows with Dr. Loredo and an outpatient HD schedule M- at [facility]. 06/04: last iHD tx, 1.6 L [...] PLT 234 236 230 -- Recent Labs 06/07/2533406/08/2511406/09/25 0541 NA 133* 129* [...] hemodialysis RECOMMENDATIONS: - HD schedule M-F at [facility], follows with Dr. Loredo. S/p iHD [...] from the original note were not included. [facility] - Infectious Diseases Attending Progress Note Subjective: [...] -- -- 62 18 99 % -- 06/09/25 0331 -- -- -- 72 19 100 % [...] 1142 Aerobic and Anaerobic Culture with Stain [[id number]] Body Fluid from Pleural Cavity, Left In process Component Value No component results 06/07/2025 1129 06/09/2025 0748 Culture, Aerobic Bacteria with Gram Stain [[id number]] Body Fluid from Pleural Cavity, Left Preliminary result Component Value Culture No growth at 48 hours P Gram Stain Result Few Polymorphonuclear leukocytes per low power field P No organisms seen P 06/07/2025 1129 06/07/2025 1142 Anaerobic culture [[id number]] Body Fluid from Pleural Cavity, Left In process Component Value No component results 06/07/2025 1025 06/09/2025 1301 Blood culture Site #2 - Suspected Infection [[id number]] Blood, Venous Preliminary result Component Value Blood Culture No growth at 48 hours P 06/07/2025 1014 06/09/2025 1301 Blood culture Site #1 - Suspected Infection [[id number]] Blood, Venous Preliminary result Component Value Blood Culture No growth at 48 hours P 06/06/2025 1732 06/08/2025 1413 Respiratory culture and Stain [[id number]] (Abnormal) Sputum Preliminary result Component Value Respiratory [...] 06/06/2025 1732 06/07/2025 1158 Pneumonia PCR Panel [[id number]] (Abnormal) Sputum Final result Component Value Staphylococcus [...] 06/06/2025 1429 06/09/2025 0801 Culture, Cath Tip [[id number]] (Abnormal) Foreign Body from Cannula Final result Component Value Culture >15 CFU Serratia marcescens Abnormal This organism possesses an ampC beta-lactamase. For serious infections outside of the urinary tract, third generation cephalosporins may not be effective, even if test results indicate the organism is susceptible. 06/02/2025173506/02/20252058 Gastrointestinal PCR Panel [[id number]] Stool from Per Rectum Final result Component [...] DIFFICILE by PCR with Reflex to EIA [[id number]] (Abnormal) Stool from Per Rectum Final result Component Value C. difficile toxin PCR Detected Abnormal 06/02/20256 06/02/20252207 C. difficile Toxins EIA [[id number]] (Abnormal) Stool from Per Rectum Final result Component Value C difficile Toxins A+B, EIA Positive Abnormal Lines: RIJ HD cath (06/08/25) Radiography/Echo/Other: XR chest 1 view [[id number]] Collected: 06/08/25 140 Order Status: Completed Updated: [...] 06/08/2025 2:04 PM EDT US guided thoracentesis [[id number]] Collected: 06/07/25 1409 Order Status: Completed Updated: [...] 2:09 PM EDT XR chest 1 view [[id number]] Collected: 06/06/252039 Order Status: Completed Updated: 06/06/252042 [...] PM EDT IR CVC tunneled catheter removal [[id number]] Collected: 06/06/251545 Order Status: Completed Updated: 06/06/251546 [...] 3:46 PM EDT XR chest 1 view [[id number]] Collected: 06/01/25 1217 Order Status: Completed Updated: [...] benefits, and consideration of use of antimicrobials. [facility] Hospitalist Progress note [phone]: Please page me ([phone]) for patient care issues. [phone]: Please page [facility] Hospitalist for any issues. Subjective: Admit Date: 06/01/2025 PCP: No primary care provider on file. Room#: 222-04/222-04 José Miguel Myesr is a 75 y.o. 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 She was admitted to hospital on ICU floor given Vent status but followed by hospital medicine, pulmonology and nephrology during stay. Vocational Technical Education Director consulted for management of tube feeding = [...] 11 10 11 LIVER PROFILE: Recent Labs 06/07/2533406/08/2511406/09/25 0541 AST 19 16 18 ALT 9 [...] Facility - Pending the following -clinical improvement, acquisition consultant recommendations Total time spent (which include face to face and non face to face encounters) : 50 minutes Toxic drug monitoring/narrow therapeutic index drug monitoring : # Drug name : # Route administered : # Method of monitoring : No emergency contact information on file. Advance Directive: Full Code Discharge planning: TBD Raine Etienne MD Division of Hospitalist Medicine Inpatient Medical Services/[facility] [1] [2] atorvastatin, 40 mg, [...] petrolatum, , Topical, 3 times per day [facility] Respiratory Care Department Progress Note Spontaneous [...] ABG results No results for input(s): "PHART", "PTM9YSD", "PO2ART", "JAV7IQA", "SO2ART", "S9XNKLFV" in the last 72 hours. Does this patient meet criteria for termination of mechanical ventilation No - Chronic Vent Dependent Name of physician notified via secure chat or in person : N/A (NA if patient did not meet criteria) Comments: Thank you for involving Respiratory in the care of this patient, Images from the original note were not included. [facility], Pulmonary Medicine [address] [place], [place] [id number] Patient - Rosa Myers, Age - 75 [...] Medications[3] PRN Meds[4] Labs: CBC: Recent Labs 06/06/2551306/07/2533406/08/25 011 WBC 5.9 7.4 6.5 HGB 7.2* 7.5* 7.7* HCT 24.5* 24.4* 24.6* PLT 197 234 236 MCV 86.3 84.4 83.1 RDW 19.4* 19.2* 19.2* BMP: Recent Labs 06/06/2551306/07/255 06/08/25 011 NA 134* 133* 129* K 3.7 3.7 [...] Code Discharge planning: Anticipate discharge back to [facility] once medically stable Will not be [...] BID, Grzegorz Chatterjee MD, 200 mg at 06/08/25 0912 FLUoxetine (PROzac) capsule 20 mg, 20 mg, [...] IntraCATHeter, PRN, Mi Singh APRN - RENEE, 1,600 Units at 06/04/251922 heparin injection 1,200-2,000 Units, 1,200-2,000 Units, IntraCATHeter, PRN, Mi Singh APRN - RENEE, 1,600 Units at 06/04/251921 heparin injection 5,000 [...] Patrica Weinstein APRN - RENEE, Given at 06/08/25 0924 midodrine (Proamatine) tablet [...] 3 mL, 3 mL, Nebulization, BID, Neelima Hanks, RENITA - SIGNAL INTELLIGENCE ANALYST, 3 mL at 06/08/25 0834 stomahesive in petrolatum (ET Mix), , Topical, PRN, Patrica Weinstein APRN - RENEE, Given at 06/08/25 0936 stomahesive in petrolatum (ET Mix), , Topical, 3 times per day, Patrica Weinstein APRN - RENEE, Given at 06/08/25 0536 [4] PRN medications: acetaminophen OR acetaminophen, albumin human, albuterol, dextrose 5 % and sodium chloride 0.45 %, dextrose, dextrose, glucagon (rDNA), glucose, heparin, heparin, morphine sulfate, polyethylene glycol (PEG) 3350, promethazine OR promethazine OR promethazine, sodium chloride, sodium chloride, stomahesive in petrolatum [facility] Nephrology Progress Note Subjective/ 75 y.o. year old female who we are seeing in consultation for ESRD and management of HD. Follows with Dr. Loredo and an outpatient HD schedule M- at [facility]. 06/04: last iHD tx, 1.6 L [...] Meds[2] PRN Meds:PRN Meds[3] Data/ Recent Labs 06/06/25 0514 06/07/25 0335 06/08/25 0115 WBC 5.9 7.4 6.5 HGB 7.2* 7.5* 7.7* HCT 24.5* 24.4* 24.6* MCV 86.3 84.4 83.1 PLT 197 234 236 Recent Labs 06/06/25 0514 06/07/25 0335 06/08/25 [...] hemodialysis RECOMMENDATIONS: - HD schedule M-F at [facility], follows with Dr. Loredo. S/p iHD [...] Toney MD at 06/08/2025 6:11 PM EDT [facility] Hospitalist Progress note [phone]: Please page wv ([phone]) for patient care issues. [phone]: Please page [facility] Hospitalist for any issues. 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 She was admitted to hospital on ICU floor given Vent status but followed by hospital medicine, pulmonology and nephrology during stay. Vocational Technical Education Director consulted for management of tube feeding = [...] Net 3929.67 ml LABS: CBC: Recent Labs 06/06/2551306/07/2533406/08/25 011 WBC 5.9 7.4 6.5 RBC 2.84* 2.89* 2.96* HGB 7.2* 7.5* 7.7* HCT 24.5* 24.4* 24.6* MCV 86.3 84.4 83.1 RDW 19.4* 19.2* 19.2* PLT 197 234 236 BMP: Recent Labs 06/06/2551306/07/2533406/08/25 011 NA 134* 133* 129* K 3.7 3.7 3.8 CL 98 96* 95* CO2 26 26 24 BUN 30* 40* 51* CREATININE 2.79* 3.68* 4.25* GLUCOSE 145* 119* 150* CALCIUM 9.0 9.4 9.1 ANIONGAP 10 11 10 LIVER PROFILE: Recent Labs 06/06/2551306/07/2533412/25 0115 AST 21 19 16 ALT 12 [...] Facility - Pending the following -clinical improvement, acquisition consultant recommendations Total time spent (which include face to face and non face to face encounters) : 60 minutes Toxic drug monitoring/narrow therapeutic index drug monitoring : # Drug name : # Route administered : # Method of monitoring : No emergency contact information on file. Advance Directive: Full Code Discharge planning: TBD Raine Etienne MD Division of Hospitalist Medicine Inpatient Medical Services/[facility] [1] [2] atorvastatin, 40 mg, [...] petrolatum, , Topical, 3 times per day [facility] Nephrology Progress Note Subjective/ 75 y.o. year old female who we are seeing in consultation for ESRD and management of HD. Follows with Dr. Loredo and an outpatient HD schedule M- at [facility]. S/p iHD 06/04 for 1.6 L [...] PRN Meds:PRN Meds[3] Data/ Recent Labs 06/05/25 0306 06/06/25 0514 06/07/25 0335 WBC 5.7 5.9 7.4 HGB 7.6* 7.2* 7.5* HCT 24.8* 24.5* 24.4* MCV 84.6 86.3 84.4 PLT 234 197 234 Recent Labs 06/05/25 0306 06/06/25 0514 06/07/25 [...] hemodialysis RECOMMENDATIONS: - HD schedule M-F at [facility], follows with Dr. Loredo. S/p iHD [...] the above assessment and plan with the ENGRAVER COPPERPLATE. I agree with above note. HD catheter [...] (temporalis), Thigh (quadraceps) Fluid Accumulation: Severe Extremities Finished Yarn Examiner Strength: Normal telesales advisor strength Nutrition Assessment: 75 year old woman who remains admitted to [facility] with anemia from SNF. +1 u pRBC [...] On: Kcal/kg Weight Used for Energy Requirements: [place] Weight for Energy Calculation (kg): 57 kg Total Energy Requirements (kcals/day): 7835-9497 (25-30 kcal/kg IBW) Weight Used for Protein Requirements: [place] Weight in Kg Used for Protein Requirements: [...] 226# 05/25/25) % Weight Change (Calculated): -8.4 [place] Body Weight (lbs) (Calculated): 125 lbs [place] Body Weight (Kg) (Calculated): 57 kg % [place] Body Weight (Calculated): 177.4 % BMI (kg/m2) [...] Enteral Nutrition Raquel Brady RDN, ROSANNAN, Contact: *[phone] Images from the original note were not included. [facility] [place] [address] [place] [address] Patient - Rosa Myers, Age - 75 y.o. - 1950 Room Number - 222-04/[id number] A Consulting - Geno Waddell MD Primary Care Physician - No [facility] care provider [facility] file[id number] Date of Admission - 06/01/2025 10:53 AM [...] Medications[3] PRN Meds[4] Labs: CBC: Recent Labs 06/05/2530506/06/2551306/07/25 033 WBC 5.7 5.9 7.4 HGB 7.6* 7.2* 7.5* HCT 24.8* 24.5* 24.4* PLT 234 197 234 MCV 84.6 86.3 84.4 RDW 19.4* 19.4* 19.2* BMP: Recent Labs 06/05/2530506/06/25 0514 06/07/25 0335 NA 137 134* 133* K 3.9 3.7 3.7 CL 100 98 96* CO2 27 26 26 BUN 18 30* 40* CREATININE 1.79* 2.79* 3.68* CALCIUM 8.9 9.0 9.4 LFTs: Recent Labs 06/05/2530506/06/25 0514 06/07/25 0335 AST 21 21 19 ALT 13 12 9 PROT 6.7 6.5 6.8 ALBUMIN 2.7* 2.6* 2.7* BILITOT 0.7 0.5 0.6 ALKPHOS 119 113 123 Glucose: Recent Labs 06/05/2530506/05/25 0610 06/05/25 1820 06/06/25 0104 06/06/25 0514 [...] Code Discharge planning: Anticipate discharge back to [facility] once medically stable Case discussed with [...] mL, Nebulization, q4h, Neelima Hanks APRN - SIGNAL INTELLIGENCE ANALYST, 3 mL at 06/07/25 0858 miconazole (Micotin) [...] from the original note were not included. [facility] Wound Care Progress Note Rosa Myers AGE: 75 y.o. GENDER: female : 1950 Subjective: HISTORY of PRESENT ILLNESS HPI Rosa Myers is a 75 y.o. female who presents for a wound follow up. HPI: Ms. Myers is a 75 y.o. female who presents to the emergency department with chief complaint of abnormal blood counts. Patient was sent to us from her custodial for lab drawl that shows hemoglobin of [...] with soap and water, pat dry, leave SUPPORT DBA daily and PRN Left heel Stage 2 pressure injury (POA): -cleanse with NS, apply skin barrier wipe, leave SUPPORT DBA daily and PRN Right/Left abdominal skin fold - Fungal: -cleanse with soap and water and dry thoroughly, apply Miconazole powder, leave SUPPORT DBA BID and PRN Sacral Stage 3 pressure injury(POA): - cleanse with soap and water, apply ET mix TID and PRN, leave PRAVEEN Sacral MASD d/t friction/fluids: - cleanse with soap and water, apply ET mix TID and PRN, leave SUPPORT DBA Right medial thigh - stage 3 Pressure injury (POA): - cleanse with soap and water, apply ET mix TID and PRN, leave PRAVEEN -continue ICU bed -Q2hr/PRN turns -glide sheets for T&R -continence checks Q1-2 Hrs/PRN Nutritional support Wound Care to follow Recommend to follow up at [facility] Outpatient wound care center after hospital discharge. Any questions or concerns please secure chat "[facility] wound/ostomy". 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 She was admitted to hospital on ICU floor given Vent status but followed by hospital medicine, pulmonology and nephrology during stay. Vocational Technical Education Director consulted for management of tube feeding = [...] care with IR, nephrology - she will mendez need a temporary dialysis port placed with [...] 10 10 11 LIVER PROFILE: Recent Labs 06/05/2530506/06/25 0506/07/25 033 AST 21 21 19 ALT 13 [...] not medically stable for transfer back to [facility]. ID consulted for central line being [...] Discharge - Date - - Location - [facility] - Pending the following - reinsertio [...] Geno Waddell MD Division of Hospitalist Medicine [place] Acute care [facility] [1] No past medical history on [...] chloride, sodium chloride, stomahesive in petrolatum [4] [facility] Respiratory Care Department Progress Note Spontaneous [...] ABG results No results for input(s): "PHART", "MHC0TAV", "PO2ART", "NCZ6OOY", "SO2ART", "D1TXUEVB" in the last 72 hours. Does this patient meet criteria for termination of mechanical ventilation No - Chronic Vent Dependent Name of physician notified via secure chat or in person : n/a (NA if patient did not meet criteria) Comments: Thank you for involving Respiratory in the care of this patient, [facility] Nephrology Progress Note Subjective/ 75 y.o. year old female who we are seeing in consultation for ESRD and management of HD. Follows with Dr. Loredo and an outpatient HD schedule M-F at [facility]. S/p iHD 9/8 for 1.6 L removal Sleeping, easily arousable, [...] 86.3 PLT 247 234 197 Recent Labs 06/04/2543106/05/25 0306 06/06/25 0514 NA 130* 137 134* [...] 06/04/2025 Phosphorus: No results found for: "PHOS" Assessment/ 75 y.o. female with ESRD N18.6 C. Difficile A04.72 Anemia D63.1 Volume overload E87.70 Hyponatremia E87.1 Chronic respiratory failure J96.10 Diabetes E11.22 Dependence on hemodialysis RECOMMENDATIONS: - HD schedule M-F at [facility], follows with Dr. Loredo. S/p iHD [...] from the original note were not included. [facility] [place] [address] [place] [id number] Patient - Rosa Myers, Age - 75 [...] 2.1 -- -- LFTs: Recent Labs 06/04/25 04306/05/25 0306 06/06/25 0514 AST 19 21 21 [...] day, Sharyn Amaya MD, 5,000 Units at 06/06/25 08 insulin glargine (Lantus) injection 25 Units, 25 Units, SubCUTAneous, BID, Sharyn Amaya MD, 25 Units at 06/06/25 08 Insulin Lispro (Humalog) injection 0-6 Units, 0-6 Units, SubCUTAneous, q6h, Grzegorz Chatterjee MD, 1 Units at 06/06/25 0526 miconazole (Micotin) 2 % powder, , Topical, BID, Patrica Weinstein APRN - SIGNAL INTELLIGENCE ANALYST, Given at 06/06/25 08 midodrine (Proamatine) tablet 10 mg, 10 mg, Per G Tube, TID, Grzegorz Chatterjee MD, 10 mg at 06/06/25 0844 pantoprazole (ProtoNix) 40 mg in sodium [...] 0.9 % infusion, 250 mL/hr, IntraVENous, PRN, eGno Waddell MD stomahesive in petrolatum (ET Mix), [...] from the original note were not included. [facility] Wound Care Progress Note Rosa Myers AGE: 75 y.o. GENDER: female : 1950 Subjective: HISTORY of PRESENT ILLNESS HPI Rosa Myers is a 75 y.o. female who presents for a wound consult. HPI: 75 y.o. female who presents to the emergency department with chief complaint of abnormal blood counts. Patient was sent to us from her custodial for lab drawl that shows hemoglobin of [...] with soap and water, pat dry, leave SUPPORT DBA daily and PRN Left heel Stage 2 pressure injury (POA): -cleanse with NS, apply skin barrier wipe, leave SUPPORT DBA daily and PRN Right/Left abdominal skin fold - Fungal: -cleanse with soap and water and dry thoroughly, apply Miconazole powder, leave SUPPORT DBA BID and PRN Sacral Stage 3 pressure injury(POA): Sacral MASD d/t friction/fluids: Right medial thigh - stage 3 Pressure injury (POA): -cleanse with soap and water, apply ET mix TID and PRN, leave SUPPORT DBA -continue ICU bed -Q2hr/PRN turns -glide sheets for T&R -continence checks Q1-2 Hrs/PRN Nutritional support Wound Care to follow Recommend to follow up at [facility] Outpatient wound care center after hospital discharge. Any questions or concerns please secure chat "[facility] wound/ostomy". 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 She was admitted to hospital on ICU floor given Vent status but followed by hospital medicine, pulmonology and nephrology during stay. Vocational Technical Education Director consulted for management of tube feeding = [...] 72 hours. Objective: Vitals: BP (!) 111/42 [facility] 06-21-2025 Nurse Note Order to remove tunneled central venous catheter. Lab values and allergies reviewed. Order verified. Patient placed supine, and dressing removed. Line site prepared with sterile towels and antiseptic spray. Sutures removed. Breathing instructions given. Line removed on exhalation. A 6 portuguese 23 cm tunneled central venous catheter was removed from the patient's left internal jugular vein. Manual pressure was held for 5 minutes. No bleeding or hematoma noted. Sterile occlusive dressing placed. Patient tolerated the procedure well. RN updated. 1.8L removed Tolerated well Patient Name: Rosa Myers Patient : 1950 Acct: [id number] Date of Admission: 06/01/2025 [facility] Code Status: Full Code Allergies: [...] - Before each treatment: Dialysis Machine No.: [id number] RO Machine Number: [id number] Dialyzer Lot No.: [id number] Tubing Lot Number: [id number] All Connections Secure: Yes Venous Parameters Set: Yes Arterial Parameters Set: Yes NS Bag: Yes Saline Line Double Clamped: Yes Dialyzer: Nipro Prime Volume (mL): 200 mL RO Machine Number: [id number] RO Machine Log Sheet Completed: Yes Machine Alarm Self Test: Completed, Passed (06/20/25 0932) Air Foam Detector: Tested, Proper Function, pH Reading Extracorporeal Circuit Tested for Integrity: Yes Machine Conductivity: 13.9 Manual Conductivity: 13.8 Manual Ph: 7.2 Bleach Test (Neg): Yes Bath Temperature: 36 C (96.8 F) Conductivity Meter Serial #: [id number] Machine Functioning Alarm Free? Yes Dialysis Bath: K+ (Potassium): 3 Ca+ (Calcium): 2.5 Na+ (Sodium): 137 HCO3 (Bicarb): 35 Bicarbonate Concentrate Lot No.: [id number] Acid Concentrate Lot No.: [id number] Chlorine Testing - Before each treatment and [...] -- -- 63 18 99 % -- 06/20/25328 -- -- -- 65 18 99 % [...] Name: Rosa Myers Patient : 1950 Acct: [id number] Date of Admission: 06/01/2025 Room/Bed: 222/222 A Code Status: Full Code Allergies: Allergies[1] [...] - Before each treatment: Dialysis Machine No.: [id number] Machine Number: [id number] Dialyzer Lot No.: [id number] Tubing Lot Number: [id number] All Connections Secure: Yes Venous Parameters Set: Yes Arterial Parameters Set: Yes NS Bag: Yes Saline Line Double Clamped: Yes Dialyzer: Nipro Prime Volume (mL): 200 mL RO Machine Number: [id number] RO Machine Log Sheet Completed: Yes Machine Alarm Self Test: Completed, Passed (06/18/25941) Air Foam Detector: Tested, Proper Function, pH Reading Extracorporeal Circuit Tested for Integrity: Yes Machine Conductivity: 13.9 Manual Conductivity: 14 Manual Ph: 7.2 Bleach Test (Neg): Yes Bath Temperature: 36 C (96.8 F) Conductivity Meter Serial #: [id number] Machine Functioning Alarm Free? Yes Dialysis Bath: K+ (Potassium): 3 Ca+ (Calcium): 2.5 Na+ (Sodium): 137 HCO3 (Bicarb): 35 Bicarbonate Concentrate Lot No.: [id number] Acid Concentrate Lot No.: [id number] Chlorine Testing - Before each treatment and [...] Name: Rosa Myers Patient : 1950 Acct: [id number] Date of Admission: 06/01/2025 [facility] A Code Status: Full Code Allergies: [...] 0836 Alert (0) -- Regular T-Piece Diminished Pale;[place] Warm;Dry Soft;Nondistended Active Other (Comment) 06/15/25 1318 Alert (0) x2 Regular T-Piece Diminished Pale;[place] Warm;Dry Soft;Nondistended Active Other (Comment) Labs Lab [...] - Before each treatment: Dialysis Machine No.: [id number] RO Machine Number: [id number] Dialyzer Lot No.: [id number] Tubing Lot Number: [id number] All Connections Secure: Yes Venous Parameters Set: Yes Arterial Parameters Set: Yes NS Bag: Yes Saline Line Double Clamped: Yes Dialyzer: Nipro Prime Volume (mL): 200 mL RO Machine Number: [id number] RO Machine Log Sheet Completed: Yes Machine Alarm Self Test: Completed, Passed (09/19/25 0907) Air Foam Detector: Tested, Proper Function, pH Reading Extracorporeal Circuit Tested for Integrity: Yes Machine Conductivity: 13.6 Manual Conductivity: 13.8 Manual Ph: 7.5 Bleach Test (Neg): Yes Bath Temperature: 36 C (96.8 F) Conductivity Meter Serial #: [id number] Machine Functioning Alarm Free? Yes Dialysis Bath: K+ (Potassium): 3 Ca+ (Calcium): 2.5 Na+ (Sodium): 137 HCO3 (Bicarb): 35 Bicarbonate Concentrate Lot No.: [id number] Acid Concentrate Lot No.: [id number] Chlorine Testing - Before each treatment and [...] 600 Yes LVSD, watching tv, Clyde Singh SIGNAL INTELLIGENCE ANALYST at bedside 06/15/25 1100 350 mL/min -130 [...] -- -- 74 22 100 % -- 06/15/25 0325 -- -- -- 75 (!) 28 100 % -- 06/15/25 0322 -- -- -- 75 23 100 % -- 06/14/25 2303 -- -- -- 68 (!) 32 100 % -- 06/14/258 -- -- -- 68 18 100 % -- 06/14/25 2134 (!) 119/46 -- -- 70 -- [...] line so patient don't see it. And [employer] cover patient's peripheral IV. Patient Name: Rosa Myers Patient : 1950 Acct: [id number] Date of Admission: 06/01/2025 [facility] A Code Status: Full Code Allergies: [...] (0) REJI Regular Other (Comment) T-Piece Diminished [place] Warm;Dry Soft Active Generalized Non-pitting 06/13/25 1115 -- -- -- -- -- -- -- -- -- Active Generalized Non-pitting 06/13/25 1536 Alert (0) REJI Regular -- T-Piece -- [place] Warm;Dry Soft Active Generalized Non-pitting Labs Lab [...] - Before each treatment: Dialysis Machine No.: [id number] Machine Number: [id number] Dialyzer Lot No.: [id number] Tubing Lot Number: [id number] All Connections Secure: Yes Venous Parameters Set: Yes Arterial Parameters Set: Yes NS Bag: Yes Saline Line Double Clamped: Yes Dialyzer: Nipro Prime Volume (mL): 200 mL RO Machine Number: [id number] RO Machine Log Sheet Completed: Yes Machine Alarm Self Test: Completed, Passed (1115) (06/13/251114) Air Foam Detector: Tested, pH Reading, Proper Function Extracorporeal Circuit Tested for Integrity: Yes Machine Conductivity: 13.9 Manual Conductivity: 13.8 Manual Ph: 7.2 Bleach Test (Neg): Yes Bath Temperature: 36 C (96.8 F) Conductivity Meter Serial #: [id number] Machine Functioning Alarm Free? Yes Dialysis Bath: K+ (Potassium): 3 Ca+ (Calcium): 2.5 Na+ (Sodium): 137 HCO3 (Bicarb): 35 Bicarbonate Concentrate Lot No.: [id number] Acid Concentrate Lot No.: [id number] Chlorine Testing - Before each treatment and [...] mmHg 80 600 Yes bfr increased, staff physical therapist at bedside for meds 06/13/25 1145 400 [...] mmHg 170 mmHg 70 600 Yes staff physical therapist at bedside for routine glucose check 06/13/25 [...] (98.2 F) Oral 66 24 100 % 06/12/254 -- -- -- 61 -- 96 % 06/12/253 -- -- -- 61 16 94 % [...] heel, Elbows, Occiput and ears all intact. [place] and blanchable tissues noted to right heel. Pt currently followed by Wound ENGRAVER COPPERPLATE group for wounds to forehead, nose, left heel, sacrum, right medial thigh, and MASD to sacrum, and fungal dermatitis to abdominal folds. For the above wound assessment and treatment plan, please see Wound/Ostomy ENGRAVER COPPERPLATE progress notes. Prevention Measures in place, including: [place] sheet with pillows/wedges, Foam heel protector (obtained [...] tolerated procedure well. [place] [facility] [place] [facility]. Patient arrived from 222 on vent to trach, verbal consent was obtained. Patient was placed supine on exam table prepped and draped in sterile fashion. Telemetry monitors placed, vitals monitored. 1.6L removed with tx, UF goal decreased due to BP trending downward Overall tolerated well No s/s of infection with dressing change Patient Name: Rosa Myers Patient : 1950 Acct: [id number] Date of Admission: 06/01/2025 Room/Bed: 222-04/222-04 A [...] - Before each treatment: Dialysis Machine No.: [id number] Machine Number: [id number] Dialyzer Lot No.: [id number] Tubing Lot Number: [id number] All Connections Secure: Yes Venous Parameters Set: Yes Arterial Parameters Set: Yes NS Bag: Yes Saline Line Double Clamped: Yes Dialyzer: Nipro Prime Volume (mL): 200 mL RO Machine Number: [id number] RO Machine Log Sheet Completed: Yes Machine Alarm Self Test: Completed, Passed (06/11/25 1005) Air Foam Detector: Tested, Proper Function, pH Reading Extracorporeal Circuit Tested for Integrity: Yes Machine Conductivity: 13.8 Manual Conductivity: 13.8 Manual Ph: 7.5 Bleach Test (Neg): Yes Bath Temperature: 36 C (96.8 F) Conductivity Meter Serial #: [id number] Machine Functioning Alarm Free? Yes Dialysis Bath: K+ (Potassium): 3 Ca+ (Calcium): 2.5 Na+ (Sodium): 137 HCO3 (Bicarb): 35 Bicarbonate Concentrate Lot No.: [id number] Acid Concentrate Lot No.: [id number] Chlorine Testing - Before each treatment and [...] mmHg 110 600 Yes LVSD, Clyde Singh CNP at bedside, no sign of acute distress [...] -- 76 14 100 % -- -- 06/10/252319 -- -- -- 79 25 100 % -- -- 06/10/252317 -- -- -- 67 25 100 % [...] heel, Elbows, Occiput and ears all intact. [place] and blanchable tissues noted to right heel. Pt currently followed by Wound ENGRAVER COPPERPLATE group for wounds to forehead, nose, left heel, sacrum, right medial thigh, and MASD to sacrum, and fungal dermatitis to abdominal folds. For the above wound assessments and treatment plan, please see Wound/Ostomy ENGRAVER COPPERPLATE progress notes. Prevention Measures in place, including: [place] sheet with pillows/wedges, Foam heel protector (obtained [...] Name: Rosa Myers Patient : 1950 Acct: [id number] Date of Admission: 06/01/2025 Room/Bed: 222-04/222-04 A [...] (H) 06/04/2025 043 CREATININE 3.51 (H) 06/04/2025 0432 CALCIUM 9.0 06/04/2025 0432 IV Drips and Rate/Dose Continuous Meds[3] Safety - Before each treatment: Dialysis Machine No.: [id number] RO Machine Number: [id number] Dialyzer Lot No.: [id number] Tubing Lot Number: [id number] All Connections Secure: Yes Venous Parameters Set: Yes Arterial Parameters Set: Yes NS Bag: Yes Saline Line Double Clamped: Yes Dialyzer: Nipro Prime Volume (mL): 200 mL RO Machine Number: [id number] RO Machine Log Sheet Completed: Yes Machine Alarm Self Test: Completed, Passed (06/04/251522) Air Foam Detector: Tested, Proper Function, pH Reading Extracorporeal Circuit Tested for Integrity: Yes Machine Conductivity: 13.9 Manual Conductivity: 13.6 Manual Ph: 7.4 Bleach Test (Neg): Yes Bath Temperature: 36 C (96.8 F) Conductivity Meter Serial #: [id number] Machine Functioning Alarm Free? Yes Dialysis Bath: K+ (Potassium): 4 Ca+ (Calcium): 2.5 Na+ (Sodium): 137 HCO3 (Bicarb): 35 Bicarbonate Concentrate Lot No.: [id number] Acid Concentrate Lot No.: [id number] Chlorine Testing - Before each treatment and [...] denies needs, no sign of acute distress 06/04/251922 350 mL/min -- -130 mmHg 130 mmHg [...] 2202 116/55 -- 73 19 100 % 06/03/25 2026 -- -- 60 15 100 % Post-Dialysis [...] and report given to Primary RN at 193. Primary RN (First Initial, Last Name, Title): [...] Name: Rosa Myers Patient : 1950 Acct: [id number] Date of Admission: 06/01/2025 [facility] A Code Status: Full Code Allergies: [...] -- +1 +1 06/01/252099 Alert (0) -- [place] Warm;Dry Soft -- Generalized -- Non-pitting Non-pitting [...] - Before each treatment: Dialysis Machine No.: [id number] RO Machine Number: [id number] Dialyzer Lot No.: [id number] Tubing Lot Number: [id number] All Connections Secure: Yes Venous Parameters Set: Yes Arterial Parameters Set: Yes NS Bag: Yes Saline Line Double Clamped: Yes Dialyzer: Nipro Prime Volume (mL): 200 mL RO Machine Number: [id number] RO Machine Log Sheet Completed: Yes Machine Alarm Self Test: Completed, Passed (2119) (06/01/252099) Air Foam Detector: Tested, Proper Function Extracorporeal Circuit Tested for Integrity: Yes Machine Conductivity: 13.8 Manual Conductivity: 13.8 Manual Ph: 7.6 Bleach Test (Neg): Yes Bath Temperature: 36 C (96.8 F) Conductivity Meter Serial #: [id number] Machine Functioning Alarm Free? Yes Dialysis Bath: K+ (Potassium): 3 Ca+ (Calcium): 2.5 Na+ (Sodium): 137 HCO3 (Bicarb): 35 Bicarbonate Concentrate Lot No.: [id number] Acid Concentrate Lot No.: [id number] Chlorine Testing - Before each treatment and [...] mmHg 100 mmHg 130 600 Yes ufr 22906/01/25 2345 350 mL/min 1140 ml/hr -90 mmHg [...] 121/41 -- -- 63 23 100 % 06/01/252199 (!) 115/46 -- -- 64 18 98 % 06/01/252144 (!) 114/48 -- -- 61 15 97 [...] unspecified type [3] documented in this encounter [facility] 06-21-2025 Miscellaneous Notes Confirmed pickup time of 5pm by transport [employer] at phone number [phone]. Location of facility drop off is to return back to [facility]. Facility notified via Whistle, T[facility] notified on secure chat. Transport requested 5PM in [facility]. Awaiting time confirmation. Discharge order noted. Anticipate tunneled line removal around 2PM today. Tasked [employer] to send discharge paperwork and MAR to [facility]. Tasked [employer] to arrange ambulance/ ACLS transport with trach/ vent/ O2 capabilities for return to [facility]. Transport arranged for 5pm. Updated bedside RN. Discharge med list transmitted to RETURN BACK TO [facility] via [facility] per [facility] request. Care Management Progress Note Short Medical why still here: chronic trach/ vent/ PEG/ hemodialysis. IV antibiotics are complete today. Need to remove tunneled line that was placed for IV antibiotics. Dr Amaya aware. Planned Discharge Disposition: [facility]sp/Residential Care ([facility], no precert needed to return) Barriers/Today we still Wait: Administering IV medications, Procedure (comment) (needs tunneled line removed prior to transfer back to [facility]) Length of Stay (Days): 20 GMLOS: 3.9 Care Management Progress Note Short Medical why still here: receiving IV antibiotics through 06/21. SNF unable to accommodate. Planned Discharge Disposition: [facility]sp/Residential Care ([facility], no precert needed to return) Barriers/Today we still Wait: Administering IV medications Length of Stay (Days): 19 GMLOS: 3.9 Care Management Progress Note Short Medical why still here: receiving IV antibiotics through 06/21. SNF unable to accommodate. Planned Discharge Disposition: [facility]sp/Residential Care ([facility], no precert needed to return) Barriers/Today we still Wait: Administering IV medications Length of Stay (Days): 18 GMLOS: 3.9 manager commercial real estate to follow for discharge planning. Care Management Progress Note Short Medical why still here: receiving IV antibiotics through 06/21. SNF unable to accommodate. Planned Discharge Disposition: [facility]sp/Residential Care ([facility]) Barriers/Today we still Wait: Administering IV medications Length of Stay (Days): 17 GMLOS: 3.9 manager commercial real estate to follow for discharge planning. Patient remains stable on chronic vent. Discussed with Marion MICHELE today in ICU, no new overnight concerns. Nursing facility unable to accept patient with tunneled line for IV antibiotics due to staffing. Patient will remain at [facility] through 06/21 to complete Abx course. Patient will not be seen by Pulmonary over the weekend. Please notify ICU attending with any urgent needs. Care Management Progress Note Short Medical why still here: chronic trach/ vent, dialysis, PEG/ tube feeds. Requires IV antibiotics through 06/21. Facility is unable to accept patient with a tunneled line for IV antibiotics due to lack of wire winding machine tender on site. IP CONSULT TO WOUND PREVENTION INPATIENT CONSULT TO WOUND CARE PROVIDERS IP CONSULT TO PULMONOLOGY IP CONSULT TO DIETITIAN IP CONSULT TO NEPHROLOGY IP CONSULT TO INFECTIOUS DISEASES IP CONSULT TO GERIATRICS Planned Discharge Disposition: Usp/Residential Care ([facility]) Barriers/Today we still Wait: Administering IV medications Length of Stay (Days): 14 GMLOS: 3.9 manager commercial real estate to follow for discharge planning. Interventional Radiology Brief Postprocedure Note Procedure: IR cvc tunneled central line placement Preprocedure Diagnosis: Polymicrobial infection Postprocedure Diagnosis: no change Staff: Staff Role Anjum Fam MD Radiologist Oscar Moore, reverberatory skimmer Nurse Sagar Jovel, reverberatory skimmer Nurse Dolly Mccabe, RT (R) Microfilm Machine Operator Iliana Salmon PA-C Physician Electronics Engineering Professor Description of procedure: left chest tunneled [...] of cefepime. Updated ID. Planned Discharge Disposition: Usp/Residential Care [facility] Barriers/Today we still Wait: Administering IV medications, Bilingual Account Manager recommendations (comment), Post-discharge arrangement completion (comment) Length of Stay (Days): 13 GMLOS: No GMLOS Documented manager commercial real estate to follow for discharge planning. Faxed OPAT to [facility]. OPAT not received. Emailed OPAT to [email or web address] as requested. Care Management Progress Note Short Medical why still here: chronic trach/ vent/ PEG/ hemodialysis. New tunneled line placed. Plan for hemodialysis today. ID, nephrology, and pulmonology following. Planned Discharge Disposition: Usp/Residential Care ([facility]) Barriers/Today we still Wait: Administering IV medications, Bilingual Account Manager recommendations (comment) (awaiting ID plan for antibiotics, awaiting nephrology clearance for discharge) Length of Stay (Days): 12 GMLOS: No GMLOS Documented manager commercial real estate to follow for discharge planning. Sent updated notes to return back to [facility] via [facility] per TCC request. Await review and response regarding ability to accept. TCC notified. Care Management Progress Note Short Medical why still here: chronic trach/ vent/ PEG/ hemodialysis. Awaiting new tunneled line for dialysis. On Dificid and IV antibiotics per ID. Nephrology following. Planned Discharge Disposition: Usp/Residential Care ([facility]) Barriers/Today we still Wait: Administering IV medications, Procedure (comment) (awaiting tunneled line placement) Length of Stay (Days): 11 GMLOS: No GMLOS Documented manager commercial real estate to follow for discharge planning. Care Management Progress Note Short Medical why still here: chronic trach/ vent/ PEG/ hemodialysis. Awaiting new tunneled line for dialysis. On Dificid and IV antibiotics per ID. Nephrology following. Planned Discharge Disposition: Usp/Residential Care ([facility]) bedhold, no precert needed. Barriers/Today we still Wait: Administering IV medications, Clinical stability, Symptomatic control Length of Stay (Days): 10 GMLOS: No GMLOS Documented manager commercial real estate to follow for discharge planning. Care Management Progress Note Short Medical why still here: C.diff pos, chronic trach/peg, pending HD cath change r/t infection. DCP- return to [facility]. Planned Discharge Disposition: Usp/Residential Care Barriers/Today we still Wait: Symptomatic control, Procedure (comment), Clinical stability Length of Stay (Days): 7 GMLOS: No GMLOS Documented Care Management Progress Note Short Medical why still here: ongoing C Diff diarrhea. Hemodialysis MWF. Chronic trach /vent/ PEG. Receiving tube feeds. On IV antibiotics. To have dialysis cath changed out. Planned Discharge Disposition: Usp/Residential Care ([facility]) bedhold, no precert needed to return Barriers/Today we still Wait: Administering IV medications, Clinical stability, Symptomatic control Length of Stay (Days): 6 GMLOS: No GMLOS Documented manager commercial real estate to follow for discharge planning. This RN [...] removed. Line removed on exhalation. A 14 portuguese 23 cm tunneled hemodialysis catheter was removed [...] tube feeds. Hemoglobin 7.2 Planned Discharge Disposition: Usp/Residential Care ([facility]) bedhold, no precert needed Barriers/Today we still Wait: Clinical stability, Symptomatic control Length of Stay (Days): 5 GMLOS: No GMLOS Documented manager commercial real estate to follow for discharge planning. Care Management Progress Note Short Medical why still here: anemia. PRBC ordered. Hemoglobin was 7.6 most recently. Continues with C Diff diarrhea. Chronic trach/ vent/ PEG/ tube feeds. Planned Discharge Disposition: Usp/Residential Care patient is a bedhold at [facility] Barriers/Today we still Wait: Administering IV medications, Clinical stability, Symptomatic control Length of Stay (Days): 4 GMLOS: No GMLOS Documented manager commercial real estate to follow for discharge planning. Return referral placed to [facility] via [facility] per TCC request. Await review and response regarding ability to accept. TCC notified. Care Management Progress Note Short Medical why still here: anemia. Hemoglobin improved. Receiving hemodialysis. Planned Discharge Disposition: Usp/Residential Care patient is from [facility], tasked [employer] to send a referral for her to return. Awaiting response. Barriers/Today we still Wait: Administering IV medications, Clinical stability, Symptomatic control, Bilingual Account Manager recommendations (comment) Length of Stay (Days): 3 GMLOS: No GMLOS Documented manager commercial real estate to follow for discharge planning. 12:14 PM UPDATE: patient is a medicaid bedhold at [facility] and may return whenever she is medically ready. documented in this encounter [facility] 06-21-2025 Note [facility] 06-21-2025 Hospital course Narrative Discharge Summary Rosa [...] 75-year-old female who is from extended-care facility, [facility], admitted to [facility] on June 01, 2025 with low blood [...] hospital, she had dialysis sessions, serum creatinine/BUN 2.03/18 at discharge. She will be discharged to [facility] on 06/21, look for discharge medications [...] Your Medications These medications were sent to [facility] [address] [facility] [address] Hours: Wednesday to Wednesday 10 am to [...] Complexity: follow up within 7-14 calendar days (31085) [] Severe Complexity: follow up within 7 calendar days (21467) FOLLOW UP TESTING, PENDING RESULTS OR REFERRALS AT TRANSITIONAL CARE VISIT: [] Yes [] No PENDING STUDIES: DISPOSITION: FACILITY/HOME CARE AGENCY NAME: Follow up with [facility] Wound Care & Hyperbaric Oxygen Therapy - [address] [address] on INSTRUCTIONS TO MA/SW: Please [...] 06/21/2025, 11:09 AM documented in this encounter [facility] 06-14-2025 Hospital Discharg e instructions Sagar [...] a call between 8am and 5pm. - [facility] Radiology - [phone] - [facility] Radiology - [phone] - For questions after hours, please call [phone] and ask for the on-call Angiography Radiologist. [...] assistance Toileting Total assistance Feeding Total assistance Corn Husker Total assistance Med Delivery no Wound Care [...] applicable) Name: Address: Dialysis Schedule: Phone: Fax: Animal Control Officer/Director Of Hospitality signature: {E-signature:[id number]} PHYSICIAN SECTION Name: Rosa Myers Prognosis: fair [...] to a nursing facility directly from an [facility] or a unit of a [facility] that is not operated by or licensed by [facility] under section 5119.14 or 5160-3-15.1 5 The individual requires the level of services provided by a nursing facility for the condition for which he or she was treated in the hospital and, Physician Certification: I certify the above information and transfer of Rosa Myers is necessary for the continuing treatment of the diagnosis listed and that she requires custodial facility for less than 30 days. Update Admission H&P: No change in H&P PHYSICIAN SIGNATURE: documented in this encounter [facility] 06-14-2025 Note Pt tolerated procedu re well. Tunneled central line placed. Transfer pt to ICU. [facility] 06-14-2025 Note IR Procedures: Rosa is here from ICU for a tunneled central line placement. History, allergies, medications and lab results reviewed. Informed consent has been signed. Pt is on a monitor. Patient ready for the procedure. [facility] 06-14-2025 Consult note Associated Order (s): IP CONSULT TO GERIATRICS [facility] Geriatric Medicine Inpatient Consult Service Admission Date: 06/01/2025 Admission Status: INPATIENT Chief Complaint: Chief Complaint Patient presents with Other Sent from [facility] for low HGB, arrived via [...] term use while hospitalized Debility --lives at [facility] --candelaria lift at baseline I spent [...] polyneuropathy, CHF presented to the hospital from [facility] with complaints of anemia, Hgb 6.5. [...] 3 times on 06/12 Recently discharged from [facility] 04/18/25. Discharge med list reviewed. Discharged on Prozac 10mg dialy. Nursing Delirium Screen (Nu-Desc): Nursing Delirium Symptom Checklist Total Score: 0 Conversation with patient: Patient calm, just returned from IR for tunneled cath. She mouths words, not speaking. States she is in [place], month May and year 2024. She shrugs her shoulders when asked if she is sleeping or if she has been seeing anything unusual. Conversation with caregiver: Nurse at [facility]. May have anxiety with frequency of [...] 543 ms QTC Interval 552 ms P [place] 0 degrees QRS [place] -11 degrees T Wave [place] 188 degrees UT Interval 65 ms POCT glucose meter Collection Time: 06/14/25 4:47 PM Result Value Ref Range Glucose 100 70 - 100 mg/dL No results found for: "TSH" No components found for: "B12" No results found for: "VITD25" Reviewed: active problem list, medication list, allergies, social history, notes from last encounter, notes from last several encounters, lab results, imaging Follow-up: will follow with you RENITA Batista CNP 06/14/25 5:12 PM [1] No Known Allergies [...] Tube, Nightly PRN, Diana Zabala APRN - SIGNAL INTELLIGENCE ANALYST miconazole (Micotin) 2 % powder, , Topical, BID, Patrica Weinstein APRN - SIGNAL INTELLIGENCE ANALYST, Given at 06/14/25917 midodrine (Proamatine) tablet 10 [...] from the original note were not included. [facility] - Infectious Diseases Attending Consult Note [...] Patient Unable To Answer (03/08/2025) Received from [facility] Overall Financial Resource Strain (CARDIA) Difficulty of Paying Living Expenses: Patient unable to answer Food Insecurity: Patient Unable To Answer (03/08/2025) Received from [facility] Medical Hunger Vital Sign Worried About Running Out of Food in the Last Year: Patient unable to answer Ran Out of Food in the Last Year: Patient unable to answer Transportation Needs: No Transportation Needs (06/01/2025) PRAPARE - Transportation Lack of Transportation (Medical): No Lack of Transportation (Non-Medical): No Physical Activity: Inactive (07/11/2024) Received from [facility] Exercise Vital Sign Days of Exercise per Week: 0 days Minutes of Exercise per Session: 0 min Stress: No Stress Concern Present (04/18/2025) Received from [facility] of Occupational Health - Occupational Stress Questionnaire Feeling of Stress : Only a little Social Connections: Unknown (03/08/2025) Received from [facility] Medical Social Connection and Isolation Panel [NHANES] Frequency of Communication with Friends and Family: Patient unable to answer Frequency of Social Gatherings with Friends and Family: Patient unable to answer Attends Caodaism Services: Patient unable to answer Active Member [...] Violence - At Risk (03/07/2025) Received from [facility] Medical Domestic Abuse Assessment Do you feel safe in your relationships at home?: Yes Physical Abuse: Denies [facility] Domestic Abuse - Type of Abuse: Not on file [facility] Abuse - Time Frame: [...] -- 99 % -- 06/07/25 0850 (!) 122/ 36.7 C (98 F) Oral 64 -- 99 % -- 06/07/25 0849 (!) 122/44 -- -- 66 -- -- -- 06/07/25 0839 -- -- -- -- -- -- 1.651 m (5' 5") 06/07/25256 -- -- -- 66 23 100 % -- 06/07/25 025 -- -- -- 58 17 100 % -- 06/06/252 -- -- -- 58 22 100 % -- 06/06/252237 -- -- -- 57 22 99 % -- 06/06/25 2042 128/55 37.6 C (99.6 F) Oral 62 [...] 1142 Aerobic and Anaerobic Culture with Stain [[id number]] Body Fluid from Pleural Cavity, Left In process Component Value No component results 06/07/2025 1129 06/07/2025 1142 Culture, Aerobic Bacteria with Gram Stain [[id number]] Body Fluid from Pleural Cavity, Left In process Component Value No component results 06/07/2025 1129 06/07/2025 1142 Anaerobic culture [[id number]] Body Fluid from Pleural Cavity, Left In process Component Value No component results 06/07/2025 1025 06/07/2025 1034 Blood culture Site #2 - Suspected Infection [[id number]] Blood, Venous In process Component Value No component results 06/07/2025 1014 06/07/2025 1035 Blood culture Site #1 - Suspected Infection [[id number]] Blood, Venous In process Component Value No component results 06/06/2025 1732 06/06/2025 1953 Respiratory culture and Stain [[id number]] (Abnormal) Sputum Preliminary result Component Value Respiratory culture Culture in progress P Gram Stain Result Many Polymorphonuclear leukocytes per low power field Abnormal P Rare Epithelial cells per low power field Abnormal P Moderate Gram negative bacilli Abnormal P Few Gram positive bacilli Abnormal P Rare Gram positive cocci Abnormal P 06/06/2025 1732 06/07/2025 1158 Pneumonia PCR Panel [[id number]] (Abnormal) Sputum Final result Component Value Staphylococcus [...] 06/06/2025 1429 06/06/2025 1434 Culture, Cath Tip [[id number]] Foreign Body from Cannula In process Component Value No component results 06/02/2025 1736 06/02/2025 205 Gastrointestinal PCR Panel [[id number]] Stool from Per Rectum Final result Component [...] DIFFICILE by PCR with Reflex to EIA [[id number]] (Abnormal) Stool from Per Rectum Final result Component Value C. difficile toxin PCR Detected Abnormal 06/02/2025 1736 06/02/20258 C. difficile Toxins EIA [[id number]] (Abnormal) Stool from Per Rectum Final result Component Value C difficile Toxins A+B, EIA Positive Abnormal Lines: Rt chest old HD cath site tender. Radiography/Echo/Other: US guided thoracentesis - In process [[id number]] Resulted: 06/07/25 1146 Order Status: Sent Updated: 06/07/25 114 This result has not been signed. Information might be incomplete. XR chest 1 view [[id number]] Collected: 06/06/252039 Order Status: Completed Updated: 06/06/252042 [...] PM EDT IR CVC tunneled catheter removal [[id number]] Collected: 06/06/25 154 Order Status: Completed Updated: [...] 3:46 PM EDT XR chest 1 view [[id number]] Collected: 06/01/25 121 Order Status: Completed Updated: [...] Nebulization q6h PRN Neelima Hanks APRN - SIGNAL INTELLIGENCE ANALYST atorvastatin (Lipitor) tablet 40 mg 40 mg Per G Tube Daily Grzegorz Chatterjee MD 40 mg at 06/07/25 0849 busPIRone (Buspar) tablet 5 mg 5 mg Per G Tube TID Grzegorz Chatterjee MD 5 mg at 06/07/25 0848 carvedilol (Coreg) tablet 3.125 mg 3.125 mg Per G Tube BID Grzegorz Chatterjee MD 3.125 mg at 06/07/25 [...] heparin injection 1,200-2,000 Units 1,200-2,000 Units IntraCATHeter MALCOLMN RENITA Clifford CNP 1,600 Units at 06/04/25 1923 heparin injection 1,200-2,000 Units 1,200-2,000 Units IntraCATHeter PRN RENITA Clifford CNP 1,600 Units at 06/04/25 1922 heparin injection 5,000 Units 5,000 Units SubCUTAneous [...] mL Nebulization BID Neelima Hanks APRN - SIGNAL INTELLIGENCE ANALYST 3 mL at 06/07/25 0900 stomahesive in petrolatum (ET Mix) Topical PRN Patrica Weinstein APRN - RENEE stomahesive in petrolatum (ET Mix) Topical 3 times per day RENITA Gtz CNP Given at 06/07/25 0558 [4] No Known Allergies [5] No family history on file. Associated Order(s): INPATIENT CONSULT TO WOUND CARE PROVIDERS Images from the original note were not included. [facility] Wound Care CONSULT Note Rosa Myers AGE: 75 y.o. GENDER: female : 1950 Subjective: HISTORY of PRESENT ILLNESS HPI Rosa Myers is a 75 y.o. female who presents for a wound consult. HPI: 75 y.o. female who presents to the emergency department with chief complaint of abnormal blood counts. Patient was sent to us from her custodial for lab drawl that shows hemoglobin of [...] with soap and water, pat dry, leave SUPPORT DBA daily and PRN Left heel Stage 2 [...] apply ET mix TID and PRN, leave SUPPORT DBA -continue ICU bed -Q2hr/PRN turns -glide sheets for T&R -continence checks Q1-2 Hrs/PRN Nutritional support Wound Care to follow Recommend to follow up at [facility] Outpatient wound care center after hospital discharge. Any questions or concerns please secure chat "[facility] wound/ostomy". Thank you for the consult! I [...] EDT Associated Order(s): IP CONSULT TO PULMONOLOGY [facility], Pulmonary Medicine PULMONARY CONSULTATION NOTE. 06/04/25 CONSULTING PHYSICIAN: Dr Chatterjee. REASON FOR REFERRAL: [facility] Assessment- Chronic respiratory failure Ventilator dependence Trach dependence. History of BL pleural effusions, transudate requiring thoracentesis in the past. Volume overload, ESRD with pulmoanry edema Anemia Recommendations- Continue AC/VC at current settings. Attempted PSV for 15 minutes, patient became anxious as dyspneic, and RR went to 28 and was placed back on previous settings. Unclear of settings at [facility] but appears to be vent dependent. Weaning likely limited by volume status, deconditioning, anemia and numerous co-morbidities. OK to send back to [facility] from pulmonary standpoint Thank you very much [...] she is on vent 19/04. Resides at [facility]. Interestingly in review of records in care [...] Dose Status atorvastatin (Lipitor) 40 MG tablet [id number] Take 40 mg by mouth daily. Via PEG Historical Provider, Active busPIRone (Buspar) 5 MG tablet [id number] Take 5 mg by mouth 3 times daily. Mynor Roca MD Active carvedilol (Coreg) 12.5 MG tablet [id number] Take 12.5 mg by mouth 2 times daily. Hold before dialysis Mynor Roca MD Active FLUoxetine (PROzac) 20 MG/5ML solution [id number] Take 20 mg by mouth daily. Via PEG Mynor Roca MD Active furosemide (Lasix) 20 MG tablet [id number] Take 20 mg by mouth daily. Via PEG, given on wed/Wednesday for weight gain Mynor Roca MD Active insulin glargine (Lantus) 100 UNIT/ML injection [id number] Inject 25 Units under the skin 2 times daily. Mynor Roca MD Active Insulin Lispro (Humalog) 100 UNIT/ML solution injection [id number] Inject 2-12 Units under the skin 3 times daily (with meals). Sliding scale: 150-200 = 2 units, 102-250 = 4 units, 251-300 = 6 units, 301-350 = 8 units, 351-400 = 10 units, 401-450 = 12 units Mynor Roca MD Active midodrine (Proamatine) 10 MG tablet [id number] Take 10 mg by mouth 3 times daily. Via PEG, given M-F 1hr prior to dialysis Mynor Roca MD Active pantoprazole (ProtoNix) 20 MG EC tablet [id number] Take 20 mg by mouth every morning (before breakfast). Do not crush, chew, or split. Mynor Roca MD Active Petrolatum ointment [id number] Apply 1 Application topically 2 times daily [...] 247 BMP: Recent Labs 06/02/25 0510 06/03/25 04106/04/25 0432 NA 137 131* 130* K 3.1* [...] PFT's Pulmonary Functions Testing Results: None in [facility] Leyda Chin MD 1:21 PM 06/04/25 Pulmonary [...] energy intake (EN meeting patinet needs at [facility] and) Weight Loss: Mild weight loss (specify amount and time period) (-6.6% weight loss over six months per EMR) Body Fat Loss: Mild body fat loss Buccal region, Orbital Muscle Mass Loss: Mild muscle mass loss Clavicles (pectoralis & deltoids), Temples (temporalis), Thigh (quadraceps) Fluid Accumulation: Severe Extremities Finished Yarn Examiner Strength: Normal telesales advisor strength Nutrition Assessment: 75 year old woman with PMHx: CHD, HLD, HTN, DMII(A1C=6.5% 12/18/24), ESRD (Wednesday through Wednesday HD at SNF). She was admitted to [facility] with progressive dyspnea, required lasix GTT [...] left leg wound. She was transferred to [facility] on 03/07/2025. During stay at [facility] slowly weaning vent support, +Recurrent bilateral pleural effusions. s/p right thoracentesis on 03/21 with -1300 mL removed. s/p left thoracentesis on 03/22 with -600 mL removed. Repeated right thoracentesis on 04/05 with -1175 mL removed. Completed vancomycin for CDiff on 04/01, and started on nystatin through 04/21 for oral candidiasis. She worked with VIROLOGY TEACHER during admit to [facility] and used the Passy Autumn Speaking Valve, remains NPO with all nutrition via PEG (Vital High Protein @ 60 mL/hr rate with Banatrol for loose stooling). She was on a MWF HD schedule and tolerated well. Transferred from [facility] to [facility] on 04/18/25 post HD. She currently presents to [facility] ED from [facility] with anemia noted during blood draw., [...] On: Kcal/kg Weight Used for Energy Requirements: [place] Weight for Energy Calculation (kg): 57 kg Total Energy Requirements (kcals/day): 5996-7635 (25-30 kcal/kg IBW) Weight Used for Protein Requirements: [place] Weight in Kg Used for Protein Requirements: [...] Weight Source: Other (Comment) (05/25/25 at [facility]) Admission Body Weight: 103 kg (226 lb) (noted 05/25 at [facility]) Usual Body Weight: 110 kg (242 lb) (per EMR--> 242# 11/27/24; 220# (bed) 03/07/25; 209.7# 04/02/25; 226# 05/25/25) % Weight Change (Calculated): -6.6 [place] Body Weight (lbs) (Calculated): 125 lbs [place] Body Weight (Kg) (Calculated): 57 kg % [place] Body Weight (Calculated): 180.8 % BMI (kg/m2) [...] Enteral Nutrition Raquel Brady RDN, LDN, Contact: *[phone] documented in this encounter [facility] 06-12-2025 Note Pt tolerated procedu re well. Will transfer back to ns unit. [facility] 06-08-2025 Note [facility] 06-08-2025 Procedure note Associated Ord er(s): HEMODIALYSIS INPATIENT Patient Name: Rosa Myers Patient : 1950 Acct: [id number] Date of Admission: 06/01/2025 Room/Bed: A Code [...] 1350 Alert (0) Other (Comment) T-Piece Diminished [place];Pale;Red Warm;Dry Soft;Rounded Active Generalized Non-pitting None None None None lines secure, test passed 06/08/25 1601 -- -- -- Clear -- -- Soft;Rounded Active -- -- None None None None -- 06/08/25 1812 Alert (0) Other (Comment) T-Piece Clear [place];Pale;Red Warm;Dry Soft;Rounded Active Generalized Non-pitting None None None None -- Labs Recent Labs 06/08/25114 WBC 6.5 HGB 7.7* HCT 24.6* PLT 236 Lab Results Component Value Date/Time WBC 6.5 06/08/2025114 HGB 7.7 (L) 06/08/2025114 HCT 24.6 (L) 06/08/2025114 PLT 236 06/08/2025 011 NA 129 (L) 06/08/2025 011 K 3.8 06/08/2025 011 CL 95 (L) 06/08/2025 011 CO2 24 06/08/2025 0115 BUN 51 (H) 06/08/2025 011 CREATININE 4.25 (H) 06/08/2025 011 CALCIUM 9.1 06/08/2025 011 Lab Results Component Value Date WBC 6.5 06/08/2025 HGB 7.7 (L) 06/08/2025 HCT 24.6 (L) 06/08/2025 PLT 236 06/08/2025 NA 129 (L) 06/08/2025 K 3.8 06/08/2025 CL 95 (L) 06/08/2025 CO2 24 06/08/2025 BUN 51 (H) 06/08/2025 CREATININE 4.25 (H) 06/08/2025 GLUCOSE 150 (H) 06/08/2025 CALCIUM 9.1 06/08/2025 IV Drips and Rate/Dose Continuous Meds[3] Safety - Before each treatment: Dialysis Machine No.: [id number] RO Machine Number: [id number] Dialyzer Lot No.: [id number] RO Machine Log Sheet Completed: Yes Machine Alarm Self Test: Completed, Passed (1348) (06/08/25 135) Air Foam Detector: Tested, Proper Function, pH Reading Extracorporeal Circuit Tested for Integrity: Yes Machine Conductivity: 13.8 Manual Conductivity: 13.8 Bicarbonate Concentrate Lot No.: [id number] Acid Concentrate Lot No.: [id number] Manual Ph: 7.2 Bleach Test (Neg): Yes Bath Temperature: 36 C (96.8 F) Tubing Lot Number: [id number] Conductivity Meter Serial #: [id number] All Connections Secure: Yes Arterial Parameters Set: [...] 4 Vitals: 06/08/25 1745 06/08/25 1800 06/08/25 18006/08/25 181 BP: (!) 105/40 (!) 106/37 (!) [...] -- -- 55 16 100 % -- 06/07/254 -- -- -- (!) 39 16 100 [...] documented as signed by this procedure note Electronics Engineering Professor(s): N/A No supervision required documented in this encounter [facility] 06-08-2025 Note [facility] 06-07-2025 Note Patient tolerated th e procedure well. 600ml's of clear gold fluid removed. Fluid left with ICU nurse for labs to be sent. [facility] 06-04-2025 Note Return referral plac ed to [facility] via [facility] per [facility] request. Await review and response regarding ability to accept. TCC notified. [facility] 06-01-2025 Note [facility] 06-01-2025 History and physical note Attending History [...] for anemia, she is a resident of [facility] and was sent to the ER as [...] -June 02 or - Location [facility] [place] - Pending the following -clinical improvement and [...] - DO NOT do CPR, intubation] [_] [DNR-ELECTRICAL TESTER BATTERY - Comfort care only] [_] DNR form [...] Sharyn Amaya MD Division of Hospitalist Medicine [facility] [1] No past medical history on file. [...] No Known Allergies documented in this encounter [facility] 06-01-2025 Emergency department Note EMERGENCY DEPARTMENT ENCOUNTER Pt Name: Rosa Myers Birthdate 1950 Date of evaluation: 06/01/2025 ED Provider: Omid Orona MD CHIEF COMPLAINT Chief Complaint Patient presents with Other Sent from [facility] for low HGB[facility]. Pt is trach/vent dependant, A&Ox2-3 per EMS. RT called to the bedside. Pt does daily hemodialysis through R chest wall cath HISTORY OF PRESENT ILLNESS (Location/Symptom, Timing/Onset, Context/Setting, Quality, Duration, Modifying Factors, Severity) Note limiting factors. I wore appropriate PPE for the entirety of this encounter. ROSA Myers is a 75 y.o. female who presents to the emergency department with chief complaint of abnormal blood counts. Patient was sent to us from her custodial for lab drawl that shows hemoglobin of [...] mouth 3 times daily. Via PEG, given -F 1hr prior to dialysis PANTOPRAZOLE (PROTONIX) 20 MG EC TABLET Take 20 mg by mouth every morning (before breakfast). Do not crush, chew, or split. ALLERGIES Patient has no known allergies. FAMILY HISTORY Family History[3] SOCIAL HISTORY Social History[4] SCREENINGS Anai Coma Scale Best Eye Response: Spontaneous Best Verbal Response: Oriented Best Motor Response: Follows commands Enterprise Coma Scale Score: 15 PHYSICAL EXAM ED [...] Physician EKG interpretation can be found in [facility] (Per Emergency Physician): Chest x-ray: Vascular [...] AND HEMATOCRIT, BLOOD PREPARE RBC PRODUCT CODE [id number] Unit Number [id number] Unit ABO A Unit RH POS Crossmatch interpretation COMP Dispense Status Crossmatch Blood Expiration Date [id number] Product Blood Type 6200 Unit Volume 300 PRODUCT CODE [id number] Unit Number [id number] Unit ABO A Unit RH POS Crossmatch interpretation COMP Dispense Status Transfused Blood Expiration Date [id number] Product Blood Type 6200 Unit Volume 300 [...] Patient was sent to us from her custodial. I contacted her pensions retirement plan specialist from the custodial, Dr. Amaya who also admits here to the hospital. He agrees with plans for admission observation, blood transfusion. I also will contact her nephrology group, the [place] [facility] to arrange for dialysis. Patient is admitted in fair condition The patient presented with chief complaint of low blood count. The differential diagnosis associated with this patient's presentation includes anemia, electro abnormality, worsening renal failure. Our workup consisted of ordering/reviewing: Laboratory studies, EKG, chest x-ray. I discussed their care with Admitting team hospitalist and Bilingual Account Manager nephrology. Consideration for escalation of care with: [...] MD 06/01/25 1346 documented in this encounter [facility] 04-05-2025 Note ORIGINAL PROCEDURE: ULTRASOUND GUIDED [...] Sign Date: 04/05/2025 4:49:07 PM Ordering Provider: [facility] 03-27-2025 Note ORIGINAL PROCEDURE: ULTRASOUND GUIDED left THORACENTESIS DIE ATTACHING MACHINE TENDER: Cha Yusuf PA-C CLINICAL STATEMENT: Left pleural [...] By: Cha Yusuf PA-C Electronically signed By aYmil Mast MD Dictated Date: 03/22/2025 4:22:33 PM Prelim Date: 03/22/2025 4:23:20 PM Sign Date: 03/27/2025 5:38:19 PM Ordering Provider: JANAE ZARCO Interpreted by: Yamil Mast MD Preliminary Report By: Cha Yusuf PA-C Electronically signed By Yamil Mast MD Dictated Date: 03/22/2025 4:22:33 PM Prelim Date: 03/22/2025 4:23:20 PM Sign Date: 03/27/2025 5:38:19 PM Ordering Provider: JANAE ZARCO [facility] 03-27-2025 Note . MICRO - Microbiology [...] Locations *1: This test was performed at: [facility], [address] [place] [address], [phone]- , [facility] 03-22-2025 Note ORIGINAL PROCEDURE: ULTRASOUND GUIDED right THORACENTESIS DIE ATTACHING MACHINE TENDER: Cha Yusuf PA-C CLINICAL STATEMENT: Bilateral pleural effusions, right greater than left ANESTHESIA: Local FLUID REMOVED: 1300 cc FLUID COLOR: Yellow serous DISPOSITION OF FLUID: Specimen sent with patient to [facility] CATHETER/NEEDLE: 5 Fr centesis catheter The procedure, [...] was sent with the patient back to [facility] for lab if needed. No lab orders [...] 03/22/2025 8:57:19 AM Ordering Provider: JANAE ZARCO [facility] 03-11-2025 Note . MICRO - Microbiology PROCEDURE: [...] Locations *1: This test was performed at: [facility], [address] [place] [address], [phone]- , [facility] 03-07-2025 Note [facility] 02-21-2025 Note [facility] 02-19-2025 Note [facility] 02-05-2025 History and physi jim note Note Date/Time February 05, 2025 2:41p m [facility] Medical Records Department [address] [place] [address] H&P Exam - Hospitalist 02/05/25 1311 MR#: [id number] Acct: [id number] Name: ROSA MYERS Rep #:[id number] : 1950 74 From: Zachery Olvera PCP: [...] to be discussed in assessment and plan. [facility] Medical History Essential hypertension Morbid obesity with [...] (Auto) 89.7 H, Lymph %(Auto) 2.5 L, Vance % (Auto) 6.9, Eos % (Auto) 0.0, [...] Sens 218 H*, [place] [address] H 02/05/25 11:20: Urine Color Yellow, Urine Clarity Clear, Urine pH 5.0, Ur Specific Belcourt 1.025, Urine Protein 30 H, Urine Glucose [...] Blunting of both costophrenic angles. Reading Location: [id number] Assessment & Plan Assessment/Plan (1) Acute on [...] of nondescriptive chest pain. Lesion discussed with parts counter clerk Dr. Cardona. Recommended enoxaparin 1 dose. Troponin [...] monitoring, kidneyand electrolytes monitoring. Repeat 2D echo. Seal Delivery Vehicle Officer consulted from ED physician ELIDA on CKD stage IV: Patient baseline creatinine runs around 2.0 as in January 2025. Admitting BUN/creatinine 58/2.32 therefore ELIDA on CKD stage IV. Railroad Signal And Switch Operator consulted. Patient has hyperkalemia, 5.5, high anion [...] shock if needed Total time spent in tosl-if-ibfh encounter in discussion of advanced directive 17 minutes. Laboratory Results 02/05/25 09:59: WBC 20.5 H, RBC 3.71 L, Hgb 8.0 L, Hct 27.9 L, MCV 75.2 L, MCH 21.6 L, MCHC 28.7 L, RDW Std Deviation 45.6 H, RDW Coeff of Bulmaro 17.0 H, Plt Count 226, MPV 10.6, Immature Gran % (Auto) 0.600, Neut % (Auto) 89.7 H, Lymph %(Auto) 2.5 L, Vance % (Auto) 6.9, Eos % (Auto) 0.0, [...] Sens 218 H*, [place] [address] H 02/05/25 11:20: Urine Color Yellow, Urine Clarity Clear, Urine pH 5.0, Ur Specific Belcourt 1.025, Urine Protein 30 H, Urine Glucose [...] Blunting of both costophrenic angles. Reading Location: [id number] Charges/Coding Visit Charges Inpatient E&M: 65644 Init Hosp L3 Procedures Hospitalists Procedures: 67086 Advncd Care Plan 30 Min 02/05/25 1441 <Electronically signed by Zachery Gomez MD> Cosigner Signature (if applicable): CC: Dr. Amado James MD; Dr. Zachery Gomez MD~ Signed [facility] Work Phone: 1(109) 900-705105-12-2025 History and physical note [facility] Medical Records Department [address] [place] [address] H&P Exam - Hospitalist 02/05/25 1311 MR#: [id number] Acct: [id number] Name: ROSA MYERS Rep #:[id number] : 1950 74 From: Zachery Olvera PCP: [...] to be discussed in assessment and plan. [facility] Medical History Essential hypertension Morbid obesity with [...] (Auto) 89.7 H, Lymph %(Auto) 2.5 L, Vance % (Auto) 6.9, Eos % (Auto) 0.0, [...] Sens 218 H*, [place] [address] H 02/05/25 11:20: Urine Color Yellow, Urine Clarity Clear, Urine pH 5.0, Ur Specific Belcourt 1.025, Urine Protein 30 H, Urine Glucose [...] Blunting of both costophrenic angles. Reading Location: [id number] Assessment & Plan Assessment/Plan (1) Acute on [...] of nondescriptive chest pain. Lesion discussed with parts counter clerk Dr. Cardona. Recommended enoxaparin 1 dose. Troponin [...] monitoring, kidneyand electrolytes monitoring. Repeat 2D echo. Seal Delivery Vehicle Officer consulted from ED physician ELIDA on CKD stage IV: Patient baseline creatinine runs around 2.0 as in January 2025. Admitting BUN/creatinine 58/2.32 therefore ELIDA on CKD stage IV. Railroad Signal And Switch Operator consulted. Patient has hyperkalemia, 5.5,high anion gap [...] shock if needed Total time spent in wjoi-oo-cpwn encounter in discussion of advanced directive 17 minutes. Laboratory Results 02/05/25 09:59: WBC 20.5 H, RBC 3.71 L, Hgb 8.0 L, Hct 27.9 L, MCV 75.2 L, MCH 21.6 L, MCHC 28.7 L,RDW Std Deviation 45.6 H, RDW Coeff of Bulmaro 17.0 H, Plt Count 226, MPV 10.6, Immature Gran % (Auto) 0.600, Neut % (Auto) 89.7 H, Lymph %(Auto) 2.5 L, Vance % (Auto) 6.9, Eos % (Auto) 0.0, [...] Sens 218 H*, [place] [address] H 02/05/25 11:20: Urine Color Yellow, Urine Clarity Clear, Urine pH 5.0, Ur Specific Belcourt 1.025, Urine Protein 30 H, Urine Glucose [...] of both costophrenic angles. Reading Location: [facility] Charges/Coding Visit Charges Inpatient E&M: 88598 Init Hosp L3 Procedures Hospitalists Procedures: 30943 Advncd Care Plan 30 Min 02/05/25 1441 Cosigner Signature (if applicable): CC: Dr. Amado James MD; Dr. Zachery Gomez MD~ Signed [facility]05-12-2025 Radiology Diagnostic study note [facility] Imaging Services [address] [place], [place] [address] Chest 1 View (Portable) MR#: [id number] Acct: [id number] Name: ROSA MYERS Rep #: [id number] : 1950 F 74 From: Kelton Daly MD PCP: Dr. Amado James MD Status: RE G ER Study:Chest 1 View (Portable) Date of Exam: 02/05/25 Exam# [id number] Ordering Dr: Eduardo Corona DO PROCEDURE: CHEST [...] of both costophrenic angles. Reading Location: [facility] CC: Dr. Eduardo Corona DO; Dr. Amado James MD ~ [employer] Aid: Signed [facility]03-25-2025 Telephone encounter Note* Telephone Encounter [...] CBC in 2 weeks Amado James MD [facility]03-25-2025 Miscellaneous Notes* Telephone Encounter - [...] weeks Amado James MD documented in this encounterAden[facility] Instructions* Patient Instructions* Rufina Soares APRN.CNP - 11/27/2024 2:16 PM EST Get fasting labs and urine testing completed Continue to take all medication as prescribed Monitor sugars at home fasting and meals Work on eating a low carb diet Stay well hydrated Follow up in 3 months or sooner pending test results, documented in this encounterAdena [facility]03-03-[facility] History of Present illness Narrative* [...] CATARACT EXTRACTION HX Right 10/26/2017 EGD W/O [facility] SPEC VARICIES INJ N/A 02/24/2022 LIG/TRNSXJ [...] 1 capsule by mouth once daily. Insulin Sanford, Disposable, (RELION PEN NEEDLES) 32 x 5/32 [...] APRN.RENEE This note was partially generated using [employer] voice recognition system. Note was reviewed for accuracy. There may be minor misspellings or grammar miscues with [employer] voice recognition. documented in this encounterAdena Fayette [facility] Center03-03-2025 NoteHNO ID: [id number] Author: RUFINA SOARES APRN.CNP Service: ? Author [...] CATARACT EXTRACTION HX Right 10/26/2017 EGD W/O [facility] SPEC VARICIES INJ N/A 02/24/2022 LIG/TRNSXJ [...] 1 capsule by mouth once daily. Insulin Sanford, Disposable, (RELION PEN NEEDLES) 32 x 5/32 [...] hematochezia/melena. No heartburn or (more content not included)...[facility]02-18-2025 Telephone encounter Note* Telephone Encounter - Maciel Busby APRN.CNP - 11/14/2024 10:25 AM EST Noted. Okay to continue with the plan. Maciel Busby APRN.CNP [facility]02-18-2025 Miscellaneous Notes* Telephone Encounter - Maciel Busby APRN.CNP - 11/14/2024 10:25 AM EST Noted. Okay to continue with the plan. Maciel Busby APRN.RENEE * Telephone Encounter - Judie Paiz RN - 11/14/2024 10:09 AM EST Joseph RN with [facility] calls to let provider know that patient [...] questions. Judie Paiz RN documented in this encounterAdena [facility]02-18-2025 Telephone encounter Note * Telephone Encounter - Judie Paiz RN - 11/14/2024 10:09 AM EST Joseph RN with [facility] calls to let provider know that patient [...] unless provider has questions. Judie Paiz RN [facility]02-12-2025 Telephone encounter Note* Telephone Encounter [...] Ave Toney November 08, 2024 8:45 AM [facility]02-12-2025 Miscellaneous Notes* Telephone Encounter - [...] 08, 2024 8:45 AM documented in this encounterAdena [facility] Center01-30-2025 Evaluation note* Diagnosis Onset Date [...] d diastolic CHF (congestive heart failure) chronic February 27th, 2 025 9:00am Essential hypertension chronic Fe [...] 29, 2025 3: 27pm Hyperlipidemia chronic January 29 3:27pm Ischemic cardiomyopathy chronic M ay 2024 3:27pm Secondary pulmonary arterial hypertension chronic January 29, 2025 3: 27pm [facility] Work Phone: 1(116) 136-476801-30-2025 Evaluation note* Diagnosis Onset Date Resolution Status [...] diastolic (congestive) chronic February 05, 2025 1:07pm [facility] Work Phone: 1(407) 679-614701-30-2025 Evaluation note* Diagnosis Onset Date Resolution Status [...] kidney injury) resolved February 05, 2025 1:07pm [facility] Work Phone: [phone]) [phone] Telephone encounter Note* Telephone Encounter - Rajni Jiménez RN - 10/20/2024 12:12 PM EST joseph with [facility] is calling to let pcp that they are re-certifying patient for nursing for help with wound care once weekly for the next 4 weeks. [facility]01-24-2025 Miscellaneous Notes* Telephone Encounter - Rajni Jiménez RN - 10/20/2024 12:12 PM EST joseph with [facility] is calling to let pcp that they are re-certifying patient for nursing for help with wound care once weekly for the next 4 weeks. documented in this encounterAdena [facility]ayette Medical Center01-10-2025 NoteHNO ID: [id number] Author: JESSICA MCKINNON MA Service: ? Author Type: Surgical Assistant Type: Progress Notes Filed: 10/06/2024 10:07 Note Text: POPULATION HEALTH NAVIGATION OUTREACH Action/FYI Patient is on [facility] CURRENT [facility]OST[facility] Workbench list for below and needs appointment to address: DTaP,Tdap,Td Vaccine(1 - Tdap) Dilated Retinal Exam Advance Directive Discussion Hemoglobin A1C (%) Date Value 08/31/2024 5.5 09/22/2021 7.3 Patient due for: Controlling Blood Pressure Diabetic Eye Exam HBA1C - already order KED- CMP already ordered - [facility] No, offered activation Yes - Declined Spoke to patient. Scheduled 11/[address] Elizabeth in [place] for eye exam. KED (uACR ) pended [...] orders: Diabetic Eye Exam 11/27/2024 in [facility] with RUFINA SOARES - 2 mo follow up 12/08/2024 in [facility] with JENNIFER ELIZABETH - Diabetic eye exam Updated appointment note HCC related Navigation Signature: Jessica Mckinnon MA October 06, 2024 9:00 [facility]01-10-2025 History of Present illness Narrative* Jessica Mckinnon MA - 10/06/2024 9:00 AM EST POPULATION HEALTH NAVIGATION OUTREACH Action/FYI Patient is on Nadeen [facility] CURRENT ROSTER Workbench list for [...] patient. Scheduled 11/[address] Elizabeth in [place] for eye exam. KED (uA ) pended for PCP review - CMP [...] Diabetic Eye Exam 11/27/2024 in [facility] with RUFINA SOARES - 2 mo follow up 12/08/2024 in [facility] with JENNIFER ELIZABETH - Diabetic eye exam Updated appointment note HCC related Navigation Signature: Jessica Mckinnon MA October 06, 2024 9:00 AM documented in this encounterAdena [facility] Center01-10-2025 NotePatient Outreach (NETNAV) ROSA MYERS ([id number]) 1950 F Date Time Provider Department 10/06/24 JESSICA MCKINNON During your visit today, we recorded the following information about you: Jessica Mckinnon MA 10/06/2024 10:07 AM Addendum POPULATION HEALTH NAVIGATION OUTREACH Action/FYI Patient is on Nadeen [facility] CURRENT [facility]OST[facility] Workbenc list for below [...] patient. Scheduled 11/[address] Elizabeth in [place] for eye exam. KED (uACR ) pended [...] orders: Diabetic Eye Exam 11/27/2024 in [facility] with RUFINA SOARES - 2 mo follow up 12/08/2024 in [facility] with JENNIFER ELIZABETH - Diabetic eye exam Updated appointment note HCC related Navigation Signature: Jessica Mckinnon MA October 06, 2024 9:00 AM Allergies As of Date: 10/06/2024 Noted Allergy Reaction DIANA INHIBITORS 07/17/2005 NEOMYCIN 07/17/2005 Date Reviewed: 09/26/2024 Reviewed by: Yaz Christy MA - Fully Assessed Reason for Visit: Population Health Navigation Outreach [3910] Cmt: N[facility] Primary Visit Diagnosis:Type 2 diabetes mellitus with chronic kidney disease, with long-term current use of insulin, unspecified CKD stage (HCC) [E11.22, Z79.4] Order(s):ALBUMIN/CREATININE RATIO, URINE [SQUACR] Order #: [id number] FUTURE Prescriptions as of 10/09/2024 - insulin [...] capsule by mouth once daily. - Insulin Sanford, Disposable, (RELION PEN NEEDLES) 32 x 5/32 [...] 07/17/2005 DIFFUS CYSTIC MAST (more content not included)...[facility] 09-29-2024 Telephone encounter Note* Telephone Encounter - Amado James MD - 09/29/2024 10:52 AM EST Noted; continue with current dose of insulin Amado James MD [facility]01-03-2025 Miscellaneous Notes* Telephone Encounter - Amado James MD - 09/29/2024 10:52 AM EST Noted; continue with current dose of insulin Amado James MD * Telephone Encounter - Elsie Brock LPN - 09/29/2024 10:06 AM EST Joseph from [facility] calling to confirm pt's insulin dosages. [...] pt follws with wound center and Dr Erwin(director of purchasing). Elsie Brock LPN documented in this encounterAdena [facility] Center01-03-2025 Telephone encounter Note * Telephone Encounter - Elsie Brokc LPN - 09/29/2024 10:06 AM EST Joseph from [facility] calling to confirm pt's insulin dosages. [...] pt follws with wound center and Dr Erwin(director of purchasing). Elsie Brock LPN [facility]12-31-2024 Instructions* Patient Instructions* Yaz Christy MA - 09/26/2024 9:49 AM EST Increase Insulin - Levemir 30 units once daily and Humalog 15 units 3 x per day with meals. Update office in a couple weeks with readings to adjust if needed. documented in this encounterAdena Fayette Medical Center12-31-2024 History of Present illness Narrative* [...] and did have to go to a [facility] and stay, but is now back home. [...] CATARACT EXTRACTION HX Right 10/26/2017 EGD W/O [facility] SPEC VARICIES INJ N/A 02/24/2022 LIG/TRNSXJ [...] 1 Each once daily. Blood Sugar Diagnostic, Drbarbara (ACCU-CHEK COMPACT TEST) strp Test blood sugar(s) 3 times daily. Dx:E11.9 . Insulin: Yes loratadine (CLARITIN) 10 mg tablet Take 1 tablet by mouth once daily. (Patient not taking: Reportedon 08/28/2024) Cholecalciferol, Vitamin D3, 1,000 unit cap Take 1 capsule by mouth once daily. Insulin Sanford, Disposable, (RELION PEN NEEDLES) 32 x 5/32 [...] 2) due on 07/11/2025 Covid-19 Vaccine(1 - season) due on 07/11/2025 Pneumococcal Vaccine: [...] 08/31/2024 1.12 Monocytes % 08/31/2024 7.1 Abs Vance 08/31/2024 0.55 Eosinophils % 08/31/2024 2.6 Abs Eosin 08/31/2024 0.20 Basophils % 08/31/2024 0.8 Abs Baso 08/31/2024 0.06 Immature Granulocytes % 08/31/2024 0.3 Abs Immature Gran 08/31/2024 <0.03 NRBC 08/31/2024 0.0 Absolute nRBC 08/31/2024 <0.01 Diff Type 08/31/2024 Auto ASSESSMENT/PLAN: 1. Type 2 diabetes mellitus with chronic kidney disease, with long-term current use of insulin, unspecified CKD stage ([facility]) - ICD9: 250.40, 585.9, V58.67, ICD10: E11.22, [...] Chronic kidney disease, stage 4 (severe) ([facility]) - ICD9: 585.4, ICD10: N18.4 - COMPREHENSIVE METABOLIC PANEL 5. Chronic anemia - ICD9: 285.9, ICD10: D64.9 - COMPLETE BLOOD COUNT AND DIFFERENTIAL 6. Type 2 diabetes mellitus with stage 3b chronic kidney disease, without long- term current use of insulin ([facility]) - ICD9: 250.40, 585.3, ICD10: E11.22, N18.32 - INSULIN LISPRO (U-100) 100 UNIT/ML SUBCUTANEOUS PEN 7. Controlled type 2 diabetes mellitus without complication, with long-term current use of insulin ([facility]) - ICD9: 250.00, V58.67, ICD10: E11.9, Z79.4 - INSULIN LISPRO (U-100) 100 UNIT/ML SUBCUTANEOUS PEN Call office with glucose readings in 2 weeks, may need to increase insulin further Follow up in 2 months I agree with the Chief Complaint, ROS, and Past Histories independently gathered by the clinical support representative and the remaining scribed note accurately describes [...] AM. Yaz Christy MA documented in this encounterAdena Fayette Medical Center12-31-2024 NoteHNO ID: [id number] Author: AMADO JAMES MD Service: ? Author [...] and did have to go to a [facility] and stay, but is now back home. [...] 1 capsule by mouth once daily. Insulin Sanford, Disposable, (RELION PEN NEEDLES) 32 x 5/32 " ndle Use as directed with insulin pen. 250.00. 4 injections/day. On insulin. Blood-Glucose Meter, Drum-type (ACCU-CHEK COMPACT PLUS CARE) kit Use as directed cyanocobalamin (VITAMIN B-12) 1,000 mcg tab Take 1 tablet by mouth once daily. (Patie (more content not included)...[facility]12-20-2024 Telephone encounter Note* Telephone Encounter - Maciel Busby APRN.CNP - 09/15/2024 11:22 AM EST Noted. Maciel Busby APRN.CNP [facility]12-20-2024 Miscellaneous Notes* Telephone Encounter - Maciel Busby APRN.CNP - 09/15/2024 11:22 AM EST Noted. Maciel Busby APRN.SIGNAL INTELLIGENCE ANALYST * Telephone Encounter - Juana Castaneda RN - 09/15/2024 10:40 AM EST Juana calling from [facility] to report plan of care for patient and custodial will continue to visit patient 1 time a week for 2 weeks. Care Home will continue work with patient on woundcare. No call back needed. Juana Castaneda RN documented in this encounterAdena [facility]12-20-2024 Telephone encounter Note * Telephone Encounter - Juana Castaneda RN - 09/15/2024 10:40 AM EST Juana calling from [facility] to report plan of care for patient and custodial will continue to visit patient 1 time a week for 2 weeks. Care Home will continue work with patient on woundcare. No call back needed. Juana Castaneda RN [facility]12-18-2024 Telephone encounter Note* Telephone Encounter - Marguerite Rubio LPN - 09/13/2024 10:58 AM EST Patient son notified of results, verbalizes understanding of instructions. Appt is made in 1 week follow up for DM. Marguerite Rubio LPN [facility]12-18-2024 Miscellaneous Notes* Telephone Encounter - [...] been taking with her meals? Rufina Soares APRN.CNP * Telephone Encounter - Juana Castaneda RN - 09/11/2024 9:25 AM EST Patient's son Marcell calls with patient's blood sugars. Date AM Lunch Supper 09/07 [phone] 09/08 [phone] 09/09 [phone] Juana Castaneda RN documented in this encounterAdena Fayette Medical Center12-18-2024 Telephone encounter Note * Telephone [...] with PCP in 1 week. Rufina Soares APRN.CNP Example insulin titration schedule: Start taking 10 [...] target fasting blood sugar level consistently (80-130) [facility]12-17-2024 Telephone encounter Note* Telephone Encounter - Kathi [...] 3 times a day. Kathi Crane LPN [facility]12-16-2024 Telephone encounter Note* Telephone Encounter - Marguerite Rubio LPN - 09/11/2024 3:34 PM EST TC to pt. LM to call office, ask for triage nurse to get results. Marguerite Rubio LPN [facility]12-16-2024 Telephone encounter Note* Telephone Encounter - Rufina Soares APRN.CNP - 09/11/2024 3:29 PM EST Can you please call the patient's son and ask what dosing insulin are they up to at this time? Has he been titrating up the Lantus? How much Humalog has she been taking with her meals? Rufina Soares APRN.SIGNAL INTELLIGENCE ANALYST [facility]12-16-2024 Telephone encounter Note* Telephone Encounter - Juana Castaneda RN - 09/11/2024 9:25 AM EST Patient's son Marcell calls with patient's blood sugars. Date AM Lunch Supper 09/07 [phone] 09/08 [phone] 09/09 [phone] Juana Castaneda RN [facility]12-13-2024 Telephone encounter Note* Telephone Encounter - Mariza Graham MA - 09/08/2024 1:25 PM EST Isabel notified and voiced understanding. Mariza Graham MA [facility]12-13-2024 Miscellaneous Notes* Telephone Encounter - Mariza Graham MA - 09/08/2024 1:25 PM EST Isabel notified and voiced understanding. Mariza Graham MA * Telephone Encounter - Amado James MD - 09/08/2024 12:00 PM EST OK for one more visit as requested Amado James MD * Telephone Encounter - Rajni Jiménez RN - 09/08/2024 11:05 AM EST Isabel from [facility] is calling requesting an order for 1 more additional visit to see patient next week as patient was to receive paperwork in the mail that she was to go over with patient and she hasnot received it yet. Nurse is hoping that it will arrive by this time next week. please review and advise and contact nurse back with information documented in this encounterAdena Fayette Medical Center12-13-2024 Telephone encounter Note * Telephone Encounter - Amado James MD - 09/08/2024 12:00 PM EST OK for one more visit as requested Amado James MD [facility]12-13-2024 Telephone encounter Note* Telephone Encounter - Rajni Jiménez RN - 09/08/2024 11:05 AM EST Isabel from [facility] is calling requesting an order for 1 more additional visit to see patient next week as patient was to receive paperwork in the mail that she was to go over with patient and she hasnot received it yet. Nurse is hoping that it will arrive by this time next week. please review and advise and contact nurse back with information [facility]12-09-2024 Telephone encounter Note* Telephone Encounter - Mariza Graham MA - 09/04/2024 3:46 PM EST Isabel notified. Mariza Graham MA [facility]12-09-2024 Miscellaneous Notes* Telephone Encounter - Mariza Graham MA - 09/04/2024 3:46 PM EST Isabel notified. Mariza Graham MA * Telephone Encounter - Amado James MD - 09/04/2024 3:00 PM EST Ok for verbal ok to follow up with patient on 09/08/24 as requested Amado James MD * Telephone Encounter - Angelica Nassar LPN - 09/04/2024 9:57 AM EST Isabel social work supervisor from [facility] is asking for a verbal ok to follow up with patient on 09/08/24. documented in this encounterAdena [facility] Center12-09-2024 Telephone encounter Note * Telephone Encounter - Amado James MD - 09/04/2024 3:00 PM EST Ok for verbal ok to follow up with patient on 09/08/24 as requested Amado James MD [facility]12-09-2024 Telephone encounter Note* Telephone Encounter - Mariza Graham MA - 09/04/2024 10:34 AM EST Pt son Marcell notified. Mariza Graham MA [facility]12-09-2024 Miscellaneous Notes* Telephone Encounter - Mariza Graham MA - 09/04/2024 10:34 AM EST Pt son Marcell notified. Mariza Graham MA * Telephone Encounter - Marguerite uRbio LPN - 09/01/2024 2:58 PM EST TC [...] changes. Marguerite Rubio LPN documented in this encounterAdena Fayette Medical Center12-09-2024 Telephone encounter Note * Telephone Encounter - Angelica Nassar LPN - 09/04/2024 9:57 AM EST Isabel social work supervisor from [facility] is asking for a verbal ok to follow up with patient on 09/08/24. [facility]12-06-2024 Telephone encounter Note* Telephone Encounter - Marguerite Rubio LPN - 09/01/2024 2:58 PM EST TC to Pt. son Unable to LM due to the mailbox is full. Will try again later. Marguerite Rubio LPN [facility]12-06-2024 Telephone encounter Note* Telephone Encounter - Rufina [...] target fasting blood sugar level consistently (80-130) [facility]12-06-2024 Telephone encounter Note* Telephone Encounter - [...] if you want changes. Marguerite Rubio LPN [facility]12-05-2024 Telephone encounter Note* Telephone Encounter - Rufina Soares APRN.CNP - 08/31/2024 7:28 AM EST Noted, thank you Rufina Soares APRN.CNP [facility]12-05-2024 Miscellaneous Notes* Telephone Encounter - Rufina Soares APRN.CNP - 08/31/2024 7:28 AM EST Noted, thank you Rufina Tannhof, PLANT PROTECTION OFFICER.SIGNAL INTELLIGENCE ANALYST * Telephone Encounter - Aimee French RN - 08/30/2024 1:36 PM EST RICKY Gardner @ [facility] calling with plan of care. OT will see patient 1 x/weekf for one week, 2 x/week for two weeks, and 1x/week for one week for safety and strength training needed for ADLs. If agree, no call back needed. Aimee French RN documented in this encounterAdena Fayette Medical Center12-04-2024 Telephone encounter Note * Telephone Encounter - Aimee French RN - 08/30/2024 1:36 PM EST RICKY Gardner @ [facility] calling with plan of care. OT will see patient 1 x/weekf for one week, 2 x/week for two weeks, and 1x/week for one week for safety and strength training needed for ADLs. If agree, no call back needed. Aimee French RN [facility]12-03-2024 Telephone encounter Note* Telephone Encounter - Amado James MD - 08/29/2024 2:06 PM EST Noted Amado James MD [facility]12-03-2024 Miscellaneous Notes* Telephone Encounter - Amado James MD - 08/29/2024 2:06 PM EST Noted Amado James MD * Telephone Encounter - Juana Castaneda RN - 08/29/2024 10:57 AM EST Rufina PT calling from [facility] to report plan of care for patient [...] questions Juana Castaneda RN documented in this encounterAdena Fayette Medical Center12-03-2024 Telephone encounter Note * Telephone Encounter - Juana Castaneda RN - 08/29/2024 10:57 AM EST Rufina PT calling from [facility] to report plan of care for patient [...] unless there are questions Juana Castaneda RN [facility]12-02-2024 History of Present illness Narrative* Rufina Soares APRN.SIGNAL INTELLIGENCE ANALYST - 08/28/2024 2:00 PM EST This is a 74 year old female who presents today with: Patient presents with: Follow Up: Hosptial follow up hupoglycemia HISTORY OF PRESENT ILLNESS: Rosa Myers is a 74 year old female. Patient presents with: Follow Up: Hosptial follow up hupoglycemia HOSPITAL/ER FOLLOW UP: Reason for visit: Altered level of consciousness transported by EMS Which facility: [facility] Date of visit: 08/19/2024-08/22/2024 Diagnosis: Hypoglycemia, hypothermia, [...] History of diabetic ulcers/wounds Follows with cardiology, [facility], . Living with , son lives in [facility] on same property. PAST MEDICAL HISTORY: PAST MEDICAL HISTORY Diagnosis Date Allergic rhinitis due to other allergen Essential hypertension, benign Type II or unspecified type diabetes mellitus without mention of complication, uncontrolled PAST SURGICAL HISTORY Procedure Laterality Date CATARACT EXTRACTION HX Right 10/26/2017 EGD W/O [facility] SPEC VARICIES INJ N/A 02/24/2022 LIG/TRNSXJ [...] 1 capsule by mouth once daily. Insulin Sanford, Disposable, (RELION PEN NEEDLES) 32 x 5/32 [...] disease) stage 4, GFR 15-29 ml/min ([facility]) - ICD9: 585.4, ICD10: N18.4 - eGFR: [...] APRN.RENEE This note was partially generated using [employer] voice recognition system. Note was reviewed for accuracy. There may be minor misspellings or grammar miscues with [employer] voice recognition. documented in this encounterAdena Fayette Medical Center12-02-2024 NoteHNO ID: [id number] Author: RUFINA SOARES APRN.RENEE Service: ? Author Type: Nurse Practitioner Type: Progress Notes Filed: 08/28/2024 16:06 Note Text: This is a 74 year old female who presents today with: Patient presents with: Follow Up: Hosptial follow up hupoglycemia HISTORY OF PRESENT ILLNESS: Rosa Myers is a 74 year old female. Patient presents with: Follow Up: [facility] HOSPITAL/ER FOLLOW UP: Reason for visit: Altered level of consciousness transported by EMS Which facility: [facility] Date of visit: 08/19/2024-08/22/2024 Diagnosis: Hypoglycemia, hypothermia, [...] History of diabetic ulcers/wounds Follows with cardiology, [facility], . Living with , son lives in [facility] on same property. PAST MEDICAL HISTORY: [...] 1 capsule by mouth once daily. Insulin Sanford, Disposable, (RELION PEN NEEDLES) 32 x 5/32 [...] Smoking status: Former Smoke (more content not included)...[facility]12-02-2024 Instructions* Patient Instructions* Rufina Soares APRN.SIGNAL INTELLIGENCE ANALYST - 08/28/2024 1:54 PM EST Get fasting [...] units and Notify Provider documented in this encounterAdena Fayette Medical Center11-29-2024 Telephone encounter Note * Telephone Encounter - Mariza Graham MA - 08/25/2024 2:40 PM EST Detailed message of below left on Joseph's identified and confidential VM. Advised to call office ifany questions. Mariza Graham MA [facility]11-29-2024 Miscellaneous Notes* Telephone Encounter - [...] reassess. will you follow? documented in this encounterAdena Fayette Medical Center11-29-2024 Telephone encounter Note * Telephone Encounter - Amado James MD - 08/25/2024 2:01 PM EST Noted; yes, I will follow Amado James MD [facility]11-29-2024 Telephone encounter Note* Telephone Encounter - Vicki Sawant LPN - 08/25/2024 1:03 PM EST Bailey WONG calling Pt. discharged with DX hypoglycemia. POC is see her 2 x 1 week an 1 day for 2 weeks and reassess. will you follow? [facility] Work Phone: 1(770) 609-320211-29-2024 NoteHNO ID: [id number] Author: MARIZA GRAHAM MA Service: ? Author Type: Surgical Assistant Type: Progress Notes Filed: 08/25/2024 10:20 Note Text: TRANSITION CARE MANAGEMENT (TCM) INITIAL CONTACT Surgical Assistant Outreach Provider Action/FYI: 7 day TCM Pt [...] of Discharge 08/22/2024 SUMMARY: -Pt discharged from [facility] on 08/22/24. -Admitted for: 1) hypoglycemia with [...] from recent hospitalization: Placed for provider [facility] History of Present illness Narrative* Mariza Graham MA - 08/25/2024 10:09 AM EST TRANSITION CARE MANAGEMENT (TCM) INITIAL CONTACT Surgical Assistant Outreach Provider Action/FYI: 7 day TCM Pt [...] of Discharge 08/22/2024 SUMMARY: -Pt discharged from [facility] on 08/22/24. -Admitted for: 1) hypoglycemia with [...] for provider to review documented in this encounterAdena Fayette Medical Center11-29-2024 NotePatient Outreach (FAMPWS) LOUISBERNAJosé Miguel Garrett ([id number]) 1950 F Date Time Provider Department 08/25/24 MARIZA GRAHAM During your visit today, we recorded the following information about you: Mariza Graham MA 08/25/2024 10:20 AM Signed TRANSITION CARE MANAGEMENT (TCM) INITIAL CONTACT Surgical Assistant Outreach Provider Action/FYI: 7 day TCM Pt [...] of Discharge 08/22/2024 SUMMARY: -Pt discharged from [facility] on 08/22/24. -Admitted for: 1) hypoglycemia with [...] capsule by mouth once daily. - Insulin Sanford, Disposable, (RELION PEN NEEDLES) 32 x 5/32 [...] attack (*11/15/2013 Morbid o (more content not included)...[facility]11-26-2024 Telephone encounter Note* Telephone Encounter - Chuyita Fontana LPN - 08/22/2024 2:28 PM EST Left detailed message on identifiable voicemail. [facility]11-26-2024 Miscellaneous Notes* Telephone Encounter - Chuyita Fontana LPN - 08/22/2024 2:28 PM EST Left detailed message on identifiable voicemail. * Telephone Encounter - Maciel Busby APRN.SIGNAL INTELLIGENCE ANALYST - 08/22/2024 2:25 PM EST Please let Vinay know that Dr. James is out of the office. His team will follow home health care orders as recommended. Okay to proceed. Maciel Busby APRN.RENEE * Telephone Encounter - Hyacinth Greer LPN - 08/22/2024 9:36 AM EST Vinay with [facility] is calling to report that pt is currently in [facility] for hypoglycemia. Pt may get discharged today or tomorrow and possibly with 2L of O2. Pt has orders for custodial, PT, OT, and SW. Vinay is asking for VO from provider that provider will follow pt while in . Hyacinth Greer LPN documented in this encounterAdena Fayette Medical Center11-26-2024 Telephone encounter Note * Telephone Encounter - Maciel Busby APRN.RENEE - 08/22/2024 2:25 PM EST Please let Vinay know that Dr. James is out of the office. His team will follow home health care orders as recommended. Okay to proceed. Maciel Busby APRN.RENEE [facility]11-26-2024 Telephone encounter Note* Telephone Encounter - Hyacinth Greer LPN - 08/22/2024 9:36 AM EST Vinay with [facility] is calling to report that pt is currently in [facility] for hypoglycemia. Pt may get discharged today or tomorrow and possibly with 2L of O2. Pt has orders for custodial, PT, OT, and SW. Vinay is asking for VO from provider that provider will follow pt while in . Hyacinth Greer LPN [facility]11-22-2024 Telephone encounter Note* Telephone Encounter - Diana Whittington LPN - 08/18/2024 4:42 PM EST Phoned [facility] order line and left detailed message with notes below from Dr James on voicemail. [facility]11-22-2024 Miscellaneous Notes* Telephone Encounter - Diana Whittington LPN - 08/18/2024 4:42 PM EST Phoned [facility] order line and left detailed message with notes below from Dr James on voicemail. * Telephone Encounter - Amado James MD - 08/18/2024 4:39 PM EST I will follow and sign orders as requested Amado James MD * Telephone Encounter - Diana Whittington LPN - 08/18/2024 3:30 PM EST Will from [facility] calling asking if PCP would follow patient and sign orders for PT/OT? Patient was in [facility]. Please advise documented in this encounterAdena Fayette Medical Center11-22-2024 Telephone encounter Note * Telephone Encounter - Amado James MD - 08/18/2024 4:39 PM EST I will follow and sign orders as requested Amado James MD [facility]11-22-2024 Telephone encounter Note* Telephone Encounter - Diana Whittington LPN - 08/18/2024 3:30 PM EST Will from [facility] calling asking if PCP would follow patient and sign orders for PT/OT? Patient was in [facility]. Please advise [facility]10-17-2024 Telephone encounter Note* Telephone Encounter - Amado James MD - 07/13/2024 4:09 PM EDT Ok for Lantus as ordered Amado James MD [facility]10-17-2024 Miscellaneous Notes* Telephone Encounter - Amado James MD - 07/13/2024 4:09 PM EDT Ok for Lantus as ordered Amado James MD * Telephone Encounter - Laura Palomares LPN - 07/13/2024 3:50 PM EDT Dolly pharmacist from [facility] calling states received script for Levemir for pt this is being discontinued . There are no alternatives coming up but she states most likely Lantus. . New script needssent to [facility] for pt. documented in this encounterAdena Fayette Medical Center10-17-2024 Telephone encounter Note * Telephone Encounter - Laura Palomares LPN - 07/13/2024 3:50 PM EDT Dolly pharmacist from [facility] calling states received script for Levemir for pt this is being discontinued . There are no alternatives coming up but she states most likely Lantus. . New script needssent to [facility] for pt. [facility]10-16-2024 Telephone encounter Note* Telephone Encounter - Iain Lees RN - 07/12/2024 10:01 AM EDT Patient reports [facility] tells her her levemir Rx was cancelled. Reports she saw pcp yesterday and he did not mention it to her. Appears in chart, levemir was not cancelled, it is listed as historical med. Patient asking provider to send new Rx to pharmacy. Pended. Last ov: 07-11-24 [facility]10-16-2024 Miscellaneous Notes* Telephone Encounter - Iain Lees RN - 07/12/2024 10:01 AM EDT Patient reports [facility] tells her her levemir Rx was cancelled. Reports she saw pcp yesterday and he did not mention it to her. Appears in chart, levemir was not cancelled, it is listed as historical med. Patient asking provider to send new Rx to pharmacy. Pended. Last ov: 07-11-24 documented in this encounterAdena Fayette Medical Center10-15-2024 Instructions* Patient Instructions* Yaz Christy MA - 07/11/2024 4:30 PM EDT Will not reduce Humalog at present time, if still having low blood sugars update office. Discussed decreasing Humalog to 20 units three x per day. documented in this encounterAdena Fayette Medical Center10-15-2024 History of Present illness Narrative* [...] as PCP - General Dr. Stallings or [employer] [employer] Provider - [facility]/Cardiology. Dr. Erwin - Podiatry/Wound Center. [...] with exertion. Does follow with Cardiology at [facility], has appt tomorrow. On current regimen of Diovan 160 mg once daily and Coreg 12.5 mg bid. Lipid/CAD - Taking Plavix 75 mg once daily, Lipitor 40 mg once daily and ASA 81 mg daily. Follows with [facility]. DM - Checks sugars at home once daily with FBS of 90 this morning. Generally FBS is 130-160. Has been having increased episodes of lows (5) over the past month, seems to correlate with increased use of abx due to her wounds. Is following with Dr. Erwin at [facility] and [facility] for wound on b/l feet. [...] past year. Had Foot exam done through [facility], Wound Center. Denies having Adv Dir/Living Will, [...] CATARACT EXTRACTION HX Right 10/26/2017 EGD W/O [facility] SPEC VARICIES INJ N/A 02/24/2022 LIG/TRNSXJ [...] 1 capsule by mouth once daily. Insulin Sanford, Disposable, (RELION PEN NEEDLES) 32 x 5/32 [...] 2) due on 07/11/2025 Covid-19 Vaccine( - 2023- season) due on 07/11/2025 Pneumococcal [...] Chronic kidney disease, stage 4 (severe) ([facility]) - ICD9: 585.4, ICD10: N18.4 - cont [...] mass index of 40.0-44.9 in adult ([facility]) - ICD9: 278.01, V85.41, ICD10: E66.01, Z68.41 Stable - Behavioral intervention 6 week follow up with labs. I agree with the Chief Complaint, ROS, and Past Histories independently gathered by the clinical support representative and the remaining scribed note accurately describes [...] PM. Yaz Christy MA documented in this encounterAdena Fayette Medical Center10-15-2024 NoteHNO ID: [id number] Author: AMADO JAMES MD Service: ? Author [...] as PCP - General Dr. Stallings or [employer] Provider - [facility]/Cardiology. Dr. Erwin - Podiatry/Wound Center. [...] with exertion. Does follow with Cardiology at [facility], has appt tomorrow. On current regimen of Diovan 160 mg once daily and Coreg 12.5 mg bid. Lipid/CAD - Taking Plavix 75 mg once daily, Lipitor 40 mg once daily and ASA 81 mg daily. Follows with [facility]. DM - Checks sugars at home once daily with FBS of 90 this morning. Generally FBS is 130-160. Has been having increased episodes of lows (5) over the past month, seems to correlate with increased use of abx due to her wounds. Is following with Dr. Erwin at [facility] and [facility] for wound on b/l feet. [...] from Wound Care last (more content not included)...[facility]09-20-2024 Telephone encounter Note* Telephone Encounter - Aston Felder RN - 06/16/2024 11:37 AM EDT Patricia [facility] called in and wanted Pts last OV note faxed over. She states the only diagnosis they have is foot ulcer, and she wanted more diagnoses to put down. Faxed last OV note to fax # [phone]. [facility]09-20-2024 Miscellaneous Notes* Telephone Encounter - Aston Felder RN - 06/16/2024 11:37 AM EDT Patricia [facility] called in and wanted Pts last OV note faxed over. She states the only diagnosis they have is foot ulcer, and she wanted more diagnoses to put down. Faxed last OV note to fax # [phone]. documented in this encounterAdena Fayette Medical Center09-10-2024 Telephone encounter Note * Telephone Encounter - Maciel Busby APRN.CNP - 06/06/2024 11:40 AM EDT The following approved medication requests have been transmitted electronically. Requested Prescriptions Pending Prescriptions Disp Refills insulin lispro (HUMALOG KWIKPEN INSULIN) 100 unit/mL 30 Each 3 Sig: INJECT 25 UNITS SUBCUTANEOUSLY THREE TIMES DAILY WITH MEALS DIRECTED Maciel Busby APRN.CNP [facility]09-10-2024 Miscellaneous Notes* Telephone Encounter - Maciel Busby APRN.CNP - 06/06/2024 11:40 AM EDT The following approved medication requests have been transmitted electronically. Requested Prescriptions Pending Prescriptions Disp Refills insulin lispro (HUMALOG KWIKPEN INSULIN) 100 unit/mL 30 Each 3 Sig: INJECT 25 UNITS SUBCUTANEOUSLY THREE TIMES DAILY WITH MEALS DIRECTED Maciel Busby APRN.SIGNAL INTELLIGENCE ANALYST * Telephone Encounter - Pushpa Klein - [...] 06, 2024 10:33 AM documented in this encounterAdena Fayette Medical Center09-10-2024 Telephone encounter Note * Telephone [...] [facility] June 06, 2024 10:33 AM [facility]09-06-2024 Telephone encounter Note* Telephone Encounter - Aga Castro RN - 06/02/2024 2:31 PM EDT Joseph with [facility] calling and requesting most recent office visit for patient be faxed to them at [phone] for continuity of care for Home Health Nursing services. Faxed as requested. Aga Castro RN [facility]09-06-2024 Miscellaneous Notes* Telephone Encounter - Aga Castro RN - 06/02/2024 2:31 PM EDT Joseph with [facility] calling and requesting most recent office visit for patient be faxed to them at [phone] for continuity of care for Home Health Nursing services. Faxed as requested. Aga Castro RN documented in this encounterAdena [facility]08-10-[facility]24 History of Present illness Narrative* [...] CATARACT EXTRACTION HX; Right 02/24/2022: EGD W/O [facility] SPEC VARICIES INJ; N/A 1987: LIG/TRNSXJ [...] 1 capsule by mouth once daily. Insulin Sanford, Disposable, (RELION PEN NEEDLES) 32 x 5/32 [...] Exam due on 04/15/2024 Covid-19 Vaccine( - 2022- season) due on 04/10/2025 Influenza Vaccine(1) due [...] Past Histories independently gathered by the clinical support representative and the remaining scribed note accurately describes my personal service to the patient. Medical Decision Making: Problems: Moderate: New problem with uncertain prognosis Risk: Moderate: Drug management Medical Decision Making Level: 4 - Moderate Amado James MD The documentation for this note was completed by Mariza Graham MA acting as scribe for Amado Jaems MD. May 06, 2024 8:46 AM. Mariza Graham MA\\ documented in this encounterAdena Fayette [facility] Center08-10-2024 NoteHNO ID: [id number] Author: AMADO JAMES MD Service: ? Author [...] CATARACT EXTRACTION HX; Right 02/24/2022: EGD W/O [facility] SPEC VARICIES INJ; N/A 1987: LIG/TRNSXJ [...] 1 capsule by mouth once daily. Insulin Sanford, Disposable, (RELION PEN NEEDLES) 32 x 5/32 [...] Albumin:Creatinine Ratio due o (more content not included)...[facility]08-07-2024 NoteHNO ID: [id number] Author: JESSICA MCKINNON MA Service: ? Author Type: Surgical Assistant Type: Progress Notes Filed: 05/03/2024 09:11 Note Text: POPULATION HEALTH NAVIGATION OUTREACH Action/I Patient is on [facility] CURRENT ROSTER Workbench list for below [...] Controlling Blood Pressure Upcoming OV converted per [employer] protocol to AWV. Updated notes to address [...] Jessica Mckinnon MA May 03, 2024 9:09 [facility]08-07-2024 History of Present illness Narrative* Jessica Mckinnon MA - 05/03/2024 9:08 AM EDT POPULATION HEALTH NAVIGATION OUTREACH Action/FYI Patient is on [facility] CURRENT ROSTER Workbench list for below [...] Controlling Blood Pressure Upcoming OV converted per [place] protocol to AWV. Updated notes to address [...] 03, 2024 9:09 AM documented in this encounterAdena Fayette Medical Center08-07-2024 NotePatient Outreach (NETNAV) ROSA MYERS ([id number]) 1950 F Date Time Provider Department 05/03/24 JESSICA MCKINNON NETSAGAR During your visit today, we recorded the following information about you: Jessica Mckinnon MA 05/03/2024 9:11 AM Signed POPULATION HEALTH NAVIGATION OUTREACH Action/ Patient is on [facility] CURRENT ROSTER Workbench list for below [...] Controlling Blood Pressure Upcoming OV converted per [place] protocol to AWV. Updated notes to address [...] Population Health Navigation Outreach [3910] Cmt: Nadeen Curriesujey - Bailey PCSA Prescriptions as of 05/03/2024 [...] capsule by mouth once daily. - Insulin Sanford, Disposable, (RELION PEN NEEDLES) 32 x 5/32 [...] kidney disease, stage 4 (severe) (HCC) *04/15/2023 tank terminal gauger current use of insulin (HCC) [Z79.4] 10/15/2023 Heart failure, unspecified (HCC) [I50.9] 04/15/2023 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*04/15/2023 Encounter Status:Closed by JESSICA MCKINNON on 05/03/24[facility]07-24-2024 Telephone encounter Note* Telephone Encounter - Diana Whittington LPN - 04/19/2024 9:04 AM EDT Patient returned call and went over results, notes from Dr James with understanding. Reminder of appt date and time in 3 months. [facility]07-24-2024 Miscellaneous Notes* Telephone Encounter - [...] months. Amado James MD documented in this encounterAdena Fayette Medical Center07-23-2024 Telephone encounter Note * Telephone Encounter - Mariza Graham MA - 04/18/2024 1:18 PM EDT Tried to reach pt at her number and pt son at his number but both lines just ring. Will try to call again later. Mariza Graham MA [facility]07-23-2024 Telephone encounter Note* Telephone Encounter - Amado James MD - 04/18/2024 11:36 AM EDT Please notify patient that her lab results are stable; stay on the same medications and follow up as planned in 3 months. Amado James MD [facility]07-15-2024 History of Present illness Narrative* [...] taking ASA 81 mg daily. Follows with [place] cardiology; had recent echo showing no change [...] 1 capsule by mouth once daily. Insulin Sanford, Disposable, (RELION PEN NEEDLES) 32 x 5/32 [...] PCV20) due on 04/15/2024 Covid-19 Vaccine( - 2022-24 season) due on 04/10/2025 Annual PCP Team [...] Chronic kidney disease, stage 4 (severe) ([facility]) - ICD9: 585.4, ICD10: N18.4 - eGFR: 27 Stable 3. Heart failure, unspecified HF chronicity, unspecified heart failure type ([facility]) - ICD9: 428.9, ICD10: I50.9 Follow with cardiology 4. Morbid obesity with body mass index of 40.0-44.9 in adult ([facility]) - ICD9: 278.01, V85.41, ICD10: E66.01, Z68.41 5. Type 2 diabetes mellitus with stage 3b chronic kidney disease, without long- term current use of insulin ([facility]) - ICD9: 250.40, 585.3, ICD10: E11.22, N18.32 [...] Past Histories independently gathered by the clinical support representative and the remaining scribed note accurately describes [...] PM. Mariza Graham MA documented in this encounterAdena Fayette Medical Center07-15-2024 NoteHNO ID: [id number] Author: AMADO JAMES MD Service: ? Author [...] taking ASA 81 mg daily. Follows with [place] cardiology; had recent echo showing no change [...] CATARACT EXTRACTION HX Right 10/26/2017 EGD W/O [facility] SPEC VARICIES INJ N/A 02/24/2022 LIG/TRNSXJ [...] 1 capsule by mouth once daily. Insulin Sanford, Disposable, (RELION PEN NEEDLES) 32 x 5/32 " ndle Use as directed with insulin pen. 250.00. 4 injections/day. On insulin. Blood-Glucose Meter, Drum-type (ACCU-CHEK COMPACT PLUS CARE) kit Use as directed cyanocobalamin (VITAMIN B-12) 1,000 mcg tab Take 1 tablet by mouth once daily. Aspirin 81 mg Tab Take 81 mg by mouth. (more content not included)...[facility]07-09-2024 Telephone encounter Note* Telephone Encounter - Maciel Busby APRN.CNP - 04/04/2024 10:49 AM EDT STAMP Please reach out to patient for overdue appointment for chronic disease management with myself. If he/she is no longer following with Dr. James, please remove name from PCP field. Due for Medicare Wellness/Follow up, would need 40 minutes. Maciel Busby APRN.SIGNAL INTELLIGENCE ANALYST [facility]07-09-2024 Miscellaneous Notes* Telephone Encounter - Maciel Busby APRN.CNP - 04/04/2024 10:49 AM EDT STAMP Please reach out to patient for overdue appointment for chronic disease management with myself. If he/she is no longer following with Dr. James, please remove name from PCP field. Due for Medicare Wellness/Follow up, would need 40 minutes. Maciel Busby APRN.CNP documented in this encounterAdena Fayette Medical Center06-03-2024 NoteHNO ID: [id number] Author: JESSICA MCKINNON MA Service: ? Author Type: Surgical Assistant Type: Progress Notes Filed: 02/28/2024 11:30 Note Text: POPULATION HEALTH NAVIGATION OUTREACH Action/FYI Patient is on [facility] CURRENT ROSTER Workbench list for below [...] Jessica Mckinnon MA February 28, 2024 11:27 [facility]06-03-2024 History of Present illness Narrative* Jessica Mckinnon MA - 02/28/2024 11:27 AM EDT POPULATION HEALTH NAVIGATION OUTREACH Action/FYI Patient is on [facility] CURRENT ROSTER Workbench list for below [...] 28, 2024 11:27 AM documented in this encounterAdena Fayette Medical Center06-03-2024 NotePatient Outreach (NETNAV) ROSA MYERS ([id number]) 1950 F Date Time Provider Department 02/28/24 JESSICA MCKINNON During your visit today, we recorded the following information about you: Jessica Mckinnon MA 02/28/2024 11:30 AM Signed POPULATION HEALTH NAVIGATION OUTREACH Action/ Patient is on [facility] CURRENT ROSTER Workbench list for below [...] Population Health Navigation Outreach [3910] Cmt: Nadeen [facility] 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 - AWV, [...] capsule by mouth once daily. - Insulin Sanford, Disposable, (RELION PEN NEEDLES) 32 x 5/32 [...] kidney disease, stage 4 (severe) (HCC) *04/15/2023 long-term current use of insulin (HCC) [Z79.4] 10/15/2023 Heart failure, unspecified (HCC) [I50.9] 04/15/2023 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*04/15/2023 Encounter Status:Closed by JESSICA MCKINNON on 02/28/24[facility]05-28-2024 Telephone encounter Note* Telephone Encounter - Maciel Busby APRN.CNP - 02/22/2024 2:32 PM EDT The following approved medication requests have been transmitted electronically. Requested Prescriptions Pending Prescriptions Disp Refills carvedilol (COREG) 12.5 mg tablet 180 tablet 3 Sig: Take 1 tablet by mouth two times a day. Maciel Busby APRN.CNP [facility]05-28-2024 Miscellaneous Notes* Telephone Encounter - [...] Thank you. Cindy Heart. documented in this encounterAdena Fayette Medical Center05-28-2024 Telephone encounter Note * Telephone [...] found Please advise. Thank you. Cindy Heart. [facility]04-25-2024 Telephone encounter Note* Telephone Encounter - Yaz Christy MA - 01/20/2024 2:12 PM EDT Call to pt's son and notified him that Rx has been sent in, verbalized understanding. Yaz Christy MA [facility]04-25-2024 Miscellaneous Notes* Telephone Encounter - [...] request. Judie Paiz RN documented in this encounterAdena Fayette Medical Center04-25-2024 Telephone encounter Note * Telephone Encounter - Amado James MD - 01/20/2024 1:58 PM EDT OK to refill as ordered Amado James MD [facility]04-25-2024 NoteHNO ID: [id number] Author: CINDY EVANS MA Service: ? Author Type: Surgical Assistant Type: Progress Notes Filed: 01/20/2024 11:04 Note Text: POPULATION HEALTH NAVIGATION OUTREACH Action/FYI Letter received and sent to be mailed. Navigation Signature: Cindy Evans Population Health Navigator January 20, 2024 11:03 [facility]04-25-2024 Telephone encounter Note* Telephone Encounter - [...] patient. Pended per request. Judie Paiz RN [facility]04-23-2024 NoteHNO ID: [id number] Author: JESSICA MCKINNON MA Service: ? Author Type: Surgical Assistant Type: Progress Notes Filed: 01/18/2024 10:23 Note Text: POPULATION HEALTH NAVIGATION OUTREACH Action/FYI Patient is on [facility]ade[facility] Workbench list for below and needs appointment [...] Jessica Mckinnon MA January 18, 2024 7:29 [facility]04-23-2024 History of Present illness Narrative* Jessica [...] 18, 2024 7:29 AM documented in this encounterAdena Fayette Medical Center04-23-2024 NotePatient Outreach (NETNAV) ROSA MYERS ([id number]) 1950 F Date Time Provider Department 01/18/24 JESSICA MCKINNON During your visit today, we [...] Health Navigation Outreach [3910] Cmt: Nadeen Gerber workbenc - AWV, Care gaps, HCC gap [...] capsule by mouth once daily. - Insulin Sanford, Disposable, (RELION PEN NEEDLES) 32 x 5/32 [...] kidney disease, stage 4 (severe) (HCC) *04/15/2023 long-term current use of insulin ([facility]) [Z79.4] 10/15/2023 Heart failure, unspecified (HCC) [I50.9] 04/15/2023 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*04/15/2023 Letter Text Encoun (more content not included)...[facility]04-18-2024 Miscellaneous Notes* Telephone Encounter - Amado James [...] Thank you. Anastasia Mcdermott. documented in this encounterAdena Fayette Medical Center03-07-2024 Miscellaneous Notes* Telephone Encounter - [...] notify patient. Pushpa Heart documented in this encounterAdena [facility] Medical Center03-01-2024 History of Present illness Narrative* Sandrita Caputo - 11/26/2023 1:21 PM EST Rosa Myers is identified through a medication adherence outreach initiative based on pharmacy claims data from [employer] (insurer) for Statin medication(s). Patient is reviewed [...] left message Sandrita Caputo documented in this encounterAdena Fayette Medical Center09-25-2023 Miscellaneous Notes* Telephone Encounter - [...] recheck. Maciel Busby APRN.CNP documented in this encounterAdena [facility] Medical Center09-18-2023 Miscellaneous Notes* Telephone Encounter - [...] and advise. Sandrita Weldon documented in this encounterAdena Fayette Medical Center07-20-2023 History of Present illness Narrative* [...] to help. 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 HM - Denies having Adv Dir/Living [...] CATARACT EXTRACTION HX Right 10/26/2017 EGD W/O [facility] SPEC VARICIES INJ N/A 02/24/2022 LIG/TRNSXJ [...] 1 capsule by mouth once daily. Insulin Sanford, Disposable, (RELION PEN NEEDLES) 32 x 5/32 [...] long- term current use of insulin ([facility]) - ICD9: 250.40, 585.3, ICD10: E11.22, N18.32 [...] Chronic kidney disease, stage 4 (severe) ([facility]) - ICD9: 585.4, ICD10: N18.4 - Stable - Counseled on avoiding NSAIDs, adequate hydration - Counseled on low sodium diet - Cont monitor through labs - COMP METABOLIC PANEL 5. Congestive heart failure, unspecified HF chronicity, unspecified heart failure type ([facility]) - ICD9: 428.0, ICD10: I50.9 Stable - [...] Past Histories independently gathered by the clinical support representative and the remaining scribed note accurately describes [...] PM. Yaz Christy Ma documented in this encounterAdena [facility] Center05-01-2023 History of Present illness Narrative* Samia Hollingsworth [...] Gap or Scheduling/Wellness visits Payer: Payor: NADEEN [employer] / Plan: NADEEN MEDICRE Secure ACCESS / Product Type: PPO / Care [...] 25, 2023 10:41 AM documented in this encounterAdena Fayette Medical Center04-24-2023 Miscellaneous Notes* Telephone Encounter - Mariza Graham Ma - 01/18/2023 11:12 AM EDT Order report for Humalog faxed to [facility], notifying them to fill. Mariza Graham Ma * Telephone Encounter - Sunni Kernsevick - 01/18/2023 10:38 AM EDT Rosa Myers is calling Amado James MD today with concern regarding the RX for Humalog isis has not been received at the [facility] pharmacy in [place]. Please send today if possible. Patientstates she did call our office and was advised this RX was already sent to [facility]. Patient notes the pharmacy has checked for this new RX and they state they do not have receipt of this. Patient has been identified by name and birthdate. Duration of symptoms: N/A Person calling: self Call patient at: at home [phone] (home) Was an appointment scheduled: No Closing statement: Results or non-symptom based questions: Thank you for calling [facility], your call will be returned within the next business day. Sunni Kernsec documented in this encounterAdena [facility] Center03-29-2023 History of Present illness Narrative* Aston Duarte (Vice President Of Marketing) - 12/23/2022 5:59 PM EDT Rosa Myers is identified through a medication adherence outreach initiative based on pharmacy claims data from [employer] (insurer) for Non-insulin DM medication(s). Patient is reviewed 12/23/22 due to medication adherence concerns with the following medications (name, strength, sig): Farxiga 10mg, QD. Per reconcile dispense, last fill date and days supply: Filled 12/15/22 for 30 day supply Outcome of review/outreach: (choose outcome source and status) - Filled before Next fill date per reconcile dispense Aston Duarte (Vice President Of Marketing) documented in this encounterAdena Fayette Medical Center03-20-2023 Miscellaneous Notes* Telephone Encounter - [...] patient. Pushpa Neff Pss documented in this encounterCleveland [phone] Miscellaneous Notes* Telephone Encounter - Yaz Christy [...] prescriptions. Kathi Crane LPN documented in this encounterAdena Fayette Medical Center10-19-2022 Miscellaneous Notes* Telephone Encounter - [...] Thank you. Rufina Stuart documented in this encounterAdena Fayette Medical Center10-18-2022 Miscellaneous Notes* Telephone Encounter - [...] notify patient. Nata Bear documented in this encounterAdena Fayette Medical Center10-17-2022 History of Present illness Narrative* [...] 4 times daily to inject insulin Insulin Sanford, Disposable, (RELION PEN NEEDLES) 32 x 5/32 [...] Lymph% 07/06/2022 15.4 Abs Lymph 07/06/2022 1.30 Vance% 07/06/2022 9.6 Abs Vance 07/06/2022 0.81 Eosin% 07/06/2022 1.7 Abs Eosin 07/06/2022 0.14 Baso% 07/06/2022 1.1 Abs Baso 07/06/2022 0.09 Immature Gran % 07/06/2022 0.4 Abs Immature Gran 07/06/2022 0.03 NRBC 07/06/2022 0.0 Absolute nRBC 07/06/2022 <0.01 Diff Type 07/06/2022 Auto ASSESSMENT/PLAN: 1. Controlled type 2 diabetes mellitus without complication, with long-term current use of insulin ([facility]) - ICD9: 250.00, V58.67, ICD10: E11.9, Z79.4 [...] Past Histories independently gathered by the clinical support representative and the remaining scribed note accurately describes [...] PM. Yaz Christy Ma documented in this encounterAdena Fayette Medical Center07-12-2022 Instructions* Patient Instructions* Yaz Christy Ma - 04/07/2022 3:35 PM EDT Anemia - Take Iron once daily, may only need to take for a few months. Gastro - Continue to take Protonix 40 mg once daily. New prescription has been sent into the pharmacy. Skin - Refer to Dermatology to evaluate the area, if not improving. documented in this encounterAdena Fayette Medical Center07-12-2022 History of Present illness Narrative* [...] hospital f/u. Pt here today with her [id number], vAe. GI - Was prescribed Protonix 40 mg [...] 75 mg once daily. HM - Declines ExpertFlyer. Does not have Adv Dir/Living Will. Past medical history, appointments, medications, allergies reviewed. Previous Medical History PAST MEDICAL HISTORY Diagnosis Date Allergic rhinitis due to other allergen Essential hypertension, benign Type II or unspecified type diabetes mellitus without mention of complication, uncontrolled Previous Surgical History PAST SURGICAL HISTORY Procedure Laterality Date CATARACT EXTRACTION HX Right 10/26/2017 EGD W/O [facility] SPEC VARICIES INJ N/A 02/24/2022 LIG/TRNSXJ [...] 4 times daily to inject insulin Insulin Sanford, Disposable, (RELION PEN NEEDLES) 32 x 5/32 [...] Lymph% 04/02/2022 10.7 Abs Lymph 04/02/2022 1.17 Vance% 04/02/2022 7.3 Abs Vance 04/02/2022 0.80 Eosin% 04/02/2022 1.1 Abs Eosin [...] Past Histories independently gathered by the clinical support representative and the remaining scribed note accurately describes [...] PM. Yaz Christy Ma documented in this encounterAdena Fayette Medical Center06-20-2022 History of Present illness Narrative* [...] Gap or Scheduling/Wellness visits Payer: Payor: NADEEN [employer] [facility] / Plan: [employer] Secure ACCESS / Product Type: PPO / Care [...] 16, 2022 2:38 PM documented in this encounterAdena Fayette Medical Center01-04-2022 History of Past illness Narrative* Problem Noted Date Diagnosed Date Resolved Date Stage 3b chronic kidney disease 09/30/2021 10/15/2023 documented as of this encounter (statuses as of 11/26/2023) [facility]01-04-[facility] History of Past illness Narrative* Problem Noted Date Diagnosed Date Resolved Date Stage 3b chronic kidney disease 09/30/2021 10/15/2023 documented as of this encounter (statuses as of 12/02/2023) [facility]01-04-2022 History of Past illness Narrative* Problem Noted Date Diagnosed Date Resolved Date Stage 3b chronic kidney disease 09/30/2021 10/15/2023 documented as of this encounter (statuses as of 01/14/2024) [facility]01-01-2014 Evaluation note* Diagnosis Onset Date Resolution Status SALGADO (dyspnea on exertion) ac [place] 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 heart failure) chronic Essential hypertension chron ic History of coronary artery stent placement September, 14 chronic Hyperlipidemia chronic Ischemic cardiomyopathy [facility] Work Phone: Evaluation note* Diagnosis Onset Date Resolution Status ELIDA (acute kidney injury) ac barrow Anemia acute Elevated d-dimer acute GI bleed acute CHF exacerbation chronic [facility] Work Phone: Evaluation note* Diagnosis Encounter for screening mammogram for breast cancer documented in this encounter [facility]* Diagnosis Onset Date Resolution Status ELIDA (acute kidney injury) re solved CHF exacerbation resolved Elevated d-dimer resolved [facility] Work Phone: Evaluation note* Diagnosis Controlled type 2 diabetes mellitus without complication, with long-term current use of insulin ([facility])- Primary Essential hypertension, benign Stage 3b chronic kidney disease (HCC) Hyperlipidemia, unspecified hyperlipidemia type Congestive heart failure, unspecified HF chronicity, unspecified heart failure type (HCC) Bilateral leg edema Edema SOB (shortness of breath) Shortness of breath Anemia, unspecified type H/O: GI bleed Personal history of other diseases of digestive system documented in this encounter [facility]* Diagnosis Onset Date Resolution Status ELIDA (acute kidney injury) re solved CHF exacerbation resolved Elevated d-dimer resolved 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 heart failure) chronic Chronic kidney disease (CKD) chronic Essential hypertension chron ic History of coronary artery stent placement September, 14 chronic Hyperlipidemia chronic Ischemic cardiomyopathy [facility] Work Phone: Evaluation note* Diagnosis [...] of digestive system [facility] Diagnosis Controlled type 2 diabetes mellitus without complication, with long-term current use of insulin (HCC)- Primary documented in this encounter [facility] note* Diagnosis Controlled type 2 diabetes mellitus without complication, with long-term current use of insulin (HCC) Controlled type 2 diabetes mellitus without complication, without long-term current use of insulin (HCC) documented in this encounter [facility] note* Diagnosis Type 2 diabetes mellitus with stage 3b chronic kidney disease, without long-term current use of insulin (HCC)- Primary documented in this encounter [facility] note* Diagnosis Essential hypertension, benign Cerebral infarction, unspecified mechanism (HCC) [facility]* Diagnosis Encounter for screening mammogram for breast cancer documented in this encounter [facility] note* Diagnosis Type 2 diabetes mellitus with [...] (HCC) Morbid obesity documented in this encounter [facility] note* Diagnosis Elevated TSH- Primary Nonspecific abnormal results of thyroid function study documented in this encounter [facility] note* Diagnosis Bilateral leg edema Edema Essential hypertension, benign Type 2 diabetes mellitus with stage 3b chronic kidney disease, without long-term current use of insulin (HCC) Controlled type 2 diabetes mellitus without complication, with long-term current use of insulin (HCC) documented in this encounter [facility] note* Diagnosis Type 2 diabetes mellitus with stage 3b chronic kidney disease, without long-term current use of insulin (HCC) [facility] Diagnosis Controlled type 2 diabetes mellitus without complication, with long-term current use of insulin (HCC) [facility]* Diagnosis Essential hypertension, benign documented in this encounter [facility] note* Diagnosis Hyperlipidemia, unspecified hyperlipidemia type- Primary [...] site Other depression [facility]* Diagnosis Diabetic ulcer of right midfoot associated with type 2 diabetes mellitus, unspecified ulcer stage (HCC)- Primary Morbid obesity with body mass index of 40.0-44.9 in adult ([facility]) Morbid obesity Essential hypertension, benign Type 2 diabetes mellitus with chronic kidney disease, with long-term current use of insulin, unspecified CKD stage ([facility]) [facility]* Diagnosis Type 2 diabetes mellitus with stage 3b chronic kidney disease, without long-term current use of insulin (HCC) Controlled type 2 diabetes mellitus without complication, with long-term current use of insulin ([facility]) [facility]* Diagnosis Encounter for annual wellness exam in Medicare patient- Primary Type 2 diabetes mellitus with chronic kidney disease, with long-term current use of insulin, unspecified CKD stage (HCC) Essential hypertension, benign Hyperlipidemia, unspecified hyperlipidemia type Chronic kidney disease, stage 4 (severe) ([facility]) Heart failure, unspecified HF chronicity, unspecified heart failure type (HCC) Bilateral leg edema Edema Diabetic ulcer of right midfoot associated with type 2 diabetes mellitus, unspecified ulcer stage (HCC) Other depression Anemia, unspecified type Morbid obesity with body mass index of 40.0-44.9 in adult ([facility]) Morbid obesity documented in this encounter [facility] note* Diagnosis Type 2 diabetes mellitus with chronic kidney disease, with long-term current use of insulin, unspecified CKD stage (HCC)- Primary [facility]* Diagnosis Hospital discharge follow-up- Primary Other follow-up examination Type 2 diabetes mellitus with hypoglycaemia without coma (HCC) CKD (chronic kidney disease) stage 4, GFR 15-29 ml/min ([facility]) Chronic kidney disease, Stage IV (severe) Chronic anemia Anemia, unspecified Chronic heart failure with preserved ejection fraction ([facility]) documented in this encounter [facility] note* Diagnosis Type 2 diabetes mellitus with [...] with long-term current use of insulin ([facility]) documented in this encounter [facility] note* Diagnosis Type 2 diabetes mellitus with chronic kidney disease, with long-term current use of insulin, unspecified CKD stage (HCC)- Primary documented in this encounter [facility] note* Diagnosis Type 2 diabetes mellitus with chronic kidney disease, with long-term current use of insulin, unspecified CKD stage (HCC)- Primary Essential hypertension, benign Hyperlipidemia, unspecified hyperlipidemia type Chronic kidney disease, stage 4 (severe) ([facility]) documented in this encounter [facility] note* Diagnosis Anemia, unspecified type- Primary documented in this encounter [facility] note* Diagnosis Anemia, unspecified type Chronic renal failure, unspecified CKD stage Pressure injury of sacral region, stage 3 (HCC) Anemia, unspecified type Moderate malnutrition (CMS/HCC) (HCC) Acute metabolic encephalopathy Anxiety and depression Debility Unspecified debility documented in this encounter [facility] note* Diagnosis Dialysis complication, initial encounter- Primary documented in this encounter [facility] note* Diagnosis Dialysis complication, subsequent encounter documented in this encounter [facility] note* Diagnosis Dialysis complication, subsequent encounter documented in this encounter [facility] note* Diagnosis ESRD (end stage renal disease) on dialysis (HCC)- Primary End stage renal disease ESRD (end stage renal disease) on dialysis (HCC) End stage renal disease documented in this encounter [facility] Discharge instructionsAmbulatory Orders* Phase II, Outpatient Cardiac Rehab Location: None Selected [place] [employer] Work Phone: Reason for referral (narrative)* Diagnostic Procedure Only (Routine) - Pending Review Specialty Diagnoses / Procedures Referred By Contac t Referred To Contact [facility] Diagnoses Encounter for screening mammogram for breast cancer Procedures BUSTER SCREENING SCREENING MAMMOGRAPHY BI 2-VIEW BREAST INC Amado Diaz MD [address] [place] [address] [facility] [address] [place] [address] Referral ID Status Reason Start Date Expiration Date Visits Requested Visits Authorized [id number] Pending Review Auto-Generat ed Referral 03/04/2022 04/03/2023 1 1 [facility] for referral (narrative)* Diagnostic Procedure Only (Routine) - Pending Review Specialty Diagnoses / Procedures Referred By Thuan jaam Referred To Contact [facility] Diagnoses Encounter for screening mammogram for breast cancer Procedures BUSTER SCREENING SCREENING MAMMOGRAPHY BI 2-VIEW BREAST INC Amado Diaz MD [address] [place] [address] [facility] [address] [place] [address] Referral ID Status Reason Start Date Expiration Date Visits Requested Visits Authorized [id number] Pending Review Auto-Generat ed Referral 02/24/2023 03/25/2024 1 1 [facility] for referral (narrative)No reason for referral information [facility]WAdena [facility] Work Phone: Reason for visit Narrative* Imaging (Emergency) - Closed Specialty Diagnoses / Procedures Referred By Thuan jama Referred To Contact Radiology Diagnoses Dialysis complication, subsequent encounter Procedures IR CVC Tunneled Dialysis Cath Exchange IR CVC tunneled dialysis catheter placement Re Maciel MD [address] [place] [id number] Phone: tel: fax: Referral ID Status Reason Start Date Expiration Date Visits Re quested Visits Authorized [id number] Closed 07/03/2025 07/03/2026 1 1 [facility] Chief Complaint and Reason for Visit [...] 1:07pm Chronic kidney disease (CKD) February 05, 025 1:07pm Essential hypertension February 05, 2025 [...] February 22, 2022 8 :54am Power of [employer] No February 22, 2022 8:54am Advance Directive Response Recorded Date/ Time Advance Directives No September 28, 2013 10:29am Living Will No February 22, 2022 1 :32pm Power of [place] No February 22, 2022 1:32pm Advance Directive Response Recorded Date/ Time Living Will No February 22, 2022 1 :32pm Do you have a Healthcare Power of [place] [employer]? No February 22, 2022 1:32pm Living Will No September 27 1:36am Do you have a Healthcare Power of [place]? No September 27, 2024 1:36am Living Will No October 28 1:57am Do you have a Healthcare Power of [employer]? No October 28, 2024 1:57am Advance Directives No September 28, 2013 10:29am Advance Directive Response Recorded Date/ Time Living Will No February 22, 2022 1 :32pm Do you have a Healthcare Power of [place]? No February 22, 2022 1:32pm Living Will No September 27 1:36am Do you have a Healthcare Power of [place] [employer]? No September 27, 2024 1:36am Living Will No October 28 1:57am Do you have a Healthcare Power of [place]? No October 28, 2024 1:57am Do you have a Healthcare Power of [place]? No February 05, 2025 9:52am Advance Directives No September 28, 2013 10:29am Advance Directive Response Recorded Date/ Time Living Will No February 22, 2022 1 :32pm Do you have a Healthcare Power of [place]? No February 22, 2022 1:32pm Living Will No September 27 1:36am Do you have a Healthcare Power of [employer]? No September 27, 2024 1:36am Living Will No October 28 1:57am Do you have a Healthcare Power of [employer]? No October 28, 2024 1:57am Do you have a Healthcare Power of [employer]? No February 05, 2025 3:55pm Advance Directives [...] stage (HCC) Procedures CONSULT TO PODIATRY OFFICE/OUTPATIENT [facility] 60 MINUTES Amado James MD [address] [place] [address] Referral ID Status Reason Start Date Expiration Date Visits Requested Visits Authorized [id number] Authorized PCP Requested Referral 05/06/2024 05/06/2025 1 [...] or prosecute any alcohol or drug abuse patient.[facility] the event this information is protected by the Federal Confidentiality of Alcohol and Drug Abuse Patient Records regulations: The Federal rules restrict any use of the information to criminally investigate or prosecute any alcohol or drug abuse patient.[facility] CenterIn the event this information is protected by the Federal Confidentiality of Alcohol and Drug Abuse Patient Records regulations: The Federal rules restrict any use of the information to criminally investigate or prosecute any alcohol or drug abuse patient.[facility] Center[facility] the event this information is protected by the Federal Confidentiality of Alcohol and Drug Abuse Patient Records regulations: The Federal rules restrict any use of the information to criminally investigate or prosecute any alcohol or drug abuse patient.[facility] CenterIn the event this information is protected by the Federal Confidentiality of Alcohol and Drug Abuse Patient Records regulations: The Federal rules restrict any use of the information to criminally investigate or prosecute any alcohol or drug abuse patient.[facility] CenterIn the event this information is protected by the Federal Confidentiality of Alcohol and Drug Abuse Patient Records regulations: The Federal rules restrict any use of the information to criminally investigate or prosecute any alcohol or drug abuse patient.[facility] CenterIn the event this information is protected by the Federal Confidentiality of Alcohol and Drug Abuse Patient Records regulations: The Federal rules restrict any use of the information to criminally investigate or prosecute any alcohol or drug abuse patient.[facility] CenterIn the event this information is protected by the Federal Confidentiality of Alcohol and Drug Abuse Patient Records regulations: The Federal rules restrict any use of the information to criminally investigate or prosecute any alcohol or drug abuse patient.[facility] CenterIn the event this information is protected by the Federal Confidentiality of Alcohol and Drug Abuse Patient Records regulations: The Federal rules restrict any use of the information to criminally investigate or prosecute any alcohol or drug abuse patient.[facility] CenterIn the event this information is protected by the Federal Confidentiality of Alcohol and Drug Abuse Patient Records regulations: The Federal rules restrict any use of the information to criminally investigate or prosecute any alcohol or drug abuse patient.[facility] CenterIn the event this information is protected by the Federal Confidentiality of Alcohol and Drug Abuse Patient Records regulations: The Federal rules restrict any use of the information to criminally investigate or prosecute any alcohol or drug abuse patient.[facility] CenterIn the event this information is protected by the Federal Confidentiality of Alcohol and Drug Abuse Patient Records regulations: The Federal rules restrict any use of the information to criminally investigate or prosecute any alcohol or drug abuse patient.[facility] CenterIn the event this information is protected by the Federal Confidentiality of Alcohol and Drug Abuse Patient Records regulations: The Federal rules restrict any use of the information to criminally investigate or prosecute any alcohol or drug abuse patient.[facility] CenterIn the event this information is protected by the Federal Confidentiality of Alcohol and Drug Abuse Patient Records regulations: The Federal rules restrict any use of the information to criminally investigate or prosecute any alcohol or drug abuse patient.[facility] CenterIn the event this information is protected by the Federal Confidentiality of Alcohol and Drug Abuse Patient Records regulations: The Federal rules restrict any use of the information to criminally investigate or prosecute any alcohol or drug abuse patient.[facility] CenterIn the event this information is protected by the Federal Confidentiality of Alcohol and Drug Abuse Patient Records regulations: The Federal rules restrict any use of the information to criminally investigate or prosecute any alcohol or drug abuse patient.[facility] CenterIn the event this information is protected by the Federal Confidentiality of Alcohol and Drug Abuse Patient Records regulations: The Federal rules restrict any use of the information to criminally investigate or prosecute any alcohol or drug abuse patient.[facility] CenterIn the event this information is protected by the Federal Confidentiality of Alcohol and Drug Abuse Patient Records regulations: The Federal rules restrict any use of the information to criminally investigate or prosecute any alcohol or drug abuse patient.[facility] CenterIn the event this information is protected by the Federal Confidentiality of Alcohol and Drug Abuse Patient Records regulations: The Federal rules restrict any use of the information to criminally investigate or prosecute any alcohol or drug abuse patient.[facility] CenterIn the event this information is protected by the Federal Confidentiality of Alcohol and Drug Abuse Patient Records regulations: The Federal rules restrict any use of the information to criminally investigate or prosecute any alcohol or drug abuse patient.[facility] CenterIn the event this information is protected by the Federal Confidentiality of Alcohol and Drug Abuse Patient Records regulations: The Federal rules restrict any use of the information to criminally investigate or prosecute any alcohol or drug abuse patient.[facility] CenterIn the event this information is protected by the Federal Confidentiality of Alcohol and Drug Abuse Patient Records regulations: The Federal rules restrict any use of the information to criminally investigate or prosecute any alcohol or drug abuse patient.[facility] CenterIn the event this information is protected by the Federal Confidentiality of Alcohol and Drug Abuse Patient Records regulations: The Federal rules restrict any use of the information to criminally investigate or prosecute any alcohol or drug abuse patient.[facility] CenterIn the event this information is protected by the Federal Confidentiality of Alcohol and Drug Abuse Patient Records regulations: The Federal rules restrict any use of the information to criminally investigate or prosecute any alcohol or drug abuse patient.[facility] CenterIn the event this information is protected by the Federal Confidentiality of Alcohol and Drug Abuse Patient Records regulations: The Federal rules restrict any use of the information to criminally investigate or prosecute any alcohol or drug abuse patient.[facility] CenterIn the event this information is protected by the Federal Confidentiality of Alcohol and Drug Abuse Patient Records regulations: The Federal rules restrict any use of the information to criminally investigate or prosecute any alcohol or drug abuse patient.[facility] CenterIn the event this information is protected by the Federal Confidentiality of Alcohol and Drug Abuse Patient Records regulations: The Federal rules restrict any use of the information to criminally investigate or prosecute any alcohol or drug abuse patient.[facility] CenterIn the event this information is protected by the Federal Confidentiality of Alcohol and Drug Abuse Patient Records regulations: The Federal rules restrict any use of the information to criminally investigate or prosecute any alcohol or drug abuse patient.[facility] CenterIn the event this information is protected by the Federal Confidentiality of Alcohol and Drug Abuse Patient Records regulations: The Federal rules restrict any use of the information to criminally investigate or prosecute any alcohol or drug abuse patient.[facility] CenterIn the event this information is protected by the Federal Confidentiality of Alcohol and Drug Abuse Patient Records regulations: The Federal rules restrict any use of the information to criminally investigate or prosecute any alcohol or drug abuse patient.[facility] CenterIn the event this information is protected by the Federal Confidentiality of Alcohol and Drug Abuse Patient Records regulations: The Federal rules restrict any use of the information to criminally investigate or prosecute any alcohol or drug abuse patient.[facility] CenterIn the event this information is protected by the Federal Confidentiality of Alcohol and Drug Abuse Patient Records regulations: The Federal rules restrict any use of the information to criminally investigate or prosecute any alcohol or drug abuse patient.[facility] CenterIn the event this information is protected by the Federal Confidentiality of Alcohol and Drug Abuse Patient Records regulations: The Federal rules restrict any use of the information to criminally investigate or prosecute any alcohol or drug abuse patient.[facility] CenterIn the event this information is protected by the Federal Confidentiality of Alcohol and Drug Abuse Patient Records regulations: The Federal rules restrict any use of the information to criminally investigate or prosecute any alcohol or drug abuse patient.[facility] CenterIn the event this information is protected by the Federal Confidentiality of Alcohol and Drug Abuse Patient Records regulations: The Federal rules restrict any use of the information to criminally investigate or prosecute any alcohol or drug abuse patient.[facility] CenterIn the event this information is protected by the Federal Confidentiality of Alcohol and Drug Abuse Patient Records regulations: The Federal rules restrict any use of the information to criminally investigate or prosecute any alcohol or drug abuse patient.[facility] CenterIn the event this information is protected by the Federal Confidentiality of Alcohol and Drug Abuse Patient Records regulations: The Federal rules restrict any use of the information to criminally investigate or prosecute any alcohol or drug abuse patient.[facility] CenterIn the event this information is protected by the Federal Confidentiality of Alcohol and Drug Abuse Patient Records regulations: The Federal rules restrict any use of the information to criminally investigate or prosecute any alcohol or drug abuse patient.[facility] CenterIn the event this information is protected by the Federal Confidentiality of Alcohol and Drug Abuse Patient Records regulations: The Federal rules restrict any use of the information to criminally investigate or prosecute any alcohol or drug abuse patient.[facility] CenterIn the event this information is protected by the Federal Confidentiality of Alcohol and Drug Abuse Patient Records regulations: The Federal rules restrict any use of the information to criminally investigate or prosecute any alcohol or drug abuse patient.[facility] CenterIn the event this information is protected by the Federal Confidentiality of Alcohol and Drug Abuse Patient Records regulations: The Federal rules restrict any use of the information to criminally investigate or prosecute any alcohol or drug abuse patient.[facility] CenterIn the event this information is protected by the Federal Confidentiality of Alcohol and Drug Abuse Patient Records regulations: The Federal rules restrict any use of the information to criminally investigate or prosecute any alcohol or drug abuse patient.[facility] CenterIn the event this information is protected by the Federal Confidentiality of Alcohol and Drug Abuse Patient Records regulations: The Federal rules restrict any use of the information to criminally investigate or prosecute any alcohol or drug abuse patient.[facility] CenterIn the event this information is protected by the Federal Confidentiality of Alcohol and Drug Abuse Patient Records regulations: The Federal rules restrict any use of the information to criminally investigate or prosecute any alcohol or drug abuse patient.[facility] CenterIn the event this information is protected by the Federal Confidentiality of Alcohol and Drug Abuse Patient Records regulations: The Federal rules restrict any use of the information to criminally investigate or prosecute any alcohol or drug abuse patient.[facility] CenterIn the event this information is protected by the Federal Confidentiality of Alcohol and Drug Abuse Patient Records regulations: The Federal rules restrict any use of the information to criminally investigate or prosecute any alcohol or drug abuse patient.[facility] CenterIn the event this information is protected by the Federal Confidentiality of Alcohol and Drug Abuse Patient Records regulations: The Federal rules restrict any use of the information to criminally investigate or prosecute any alcohol or drug abuse patient.[facility] CenterIn the event this information is protected by the Federal Confidentiality of Alcohol and Drug Abuse Patient Records regulations: The Federal rules restrict any use of the information to criminally investigate or prosecute any alcohol or drug abuse patient.[facility] CenterIn the event this information is protected by the Federal Confidentiality of Alcohol and Drug Abuse Patient Records regulations: The Federal rules restrict any use of the information to criminally investigate or prosecute any alcohol or drug abuse patient.[facility] CenterIn the event this information is protected by the Federal Confidentiality of Alcohol and Drug Abuse Patient Records regulations: The Federal rules restrict any use of the information to criminally investigate or prosecute any alcohol or drug abuse patient.[facility] CenterIn the event this information is protected by the Federal Confidentiality of Alcohol and Drug Abuse Patient Records regulations: The Federal rules restrict any use of the information to criminally investigate or prosecute any alcohol or drug abuse patient.[facility] CenterIn the event this information is protected by the Federal Confidentiality of Alcohol and Drug Abuse Patient Records regulations: The Federal rules restrict any use of the information to criminally investigate or prosecute any alcohol or drug abuse patient.[facility] CenterIn the event this information is protected by the Federal Confidentiality of Alcohol and Drug Abuse Patient Records regulations: The Federal rules restrict any use of the information to criminally investigate or prosecute any alcohol or drug abuse patient.[facility] CenterIn the event this information is protected by the Federal Confidentiality of Alcohol and Drug Abuse Patient Records regulations: The Federal rules restrict any use of the information to criminally investigate or prosecute any alcohol or drug abuse patient.[facility] Care Teams (unrecognized sec tion and content) Diorama Model Maker Relationship Specialty Start Date End Date Amado James MD [address] [place] [address] PCP - General 04/25/09 Diorama Model Maker Relationship Specialty Start Date End Date Amado James MD [address] [place] [address] PCP - General 04/25/09 Diorama Model Maker Relationship Specialty Start Date End Date Amado James MD [address] [place] [address] [place] [address] PCP - General 04/25/09 Diorama Model Maker Relationship Specialty Start Date End Date Amado James MD [facility] [place] [address] PCP - General 04/25/09 Diorama Model Maker Relationship Specialty Start Date End Date Amado James MD [facility] [address] PCP - General 04/25/09 Diorama Model Maker Relationship Specialty Start Date End Date Amado James MD [facility] [address] PCP - General 04/25/09 Diorama Model Maker Relationship Specialty Start Date End Date Amado James MD [facility] [address] PCP - General 04/25/09 Diorama Model Maker Relationship Specialty Start Date End Date Amado James MD [address] [place] [address] PCP - General 04/25/09 Diorama Model Maker Relationship Specialty Start Date End Date Amado James MD [address] [place] [address] PCP - General 04/25/09 Diorama Model Maker Relationship Specialty Start Date End Date Amado James MD [address] [place] [address] PCP - General 04/25/09 Diorama Model Maker Relationship Specialty Start Date End Date Amado James MD [address] [place] [address] PCP - General 04/25/09 Diorama Model Maker Relationship Specialty Start Date End Date Amado James MD [address] [place] [address] PCP - General 04/25/09 Diorama Model Maker Relationship Specialty Start Date End Date Amado James MD [address] [place] [address] PCP - General 04/25/09 Team Status: Active Member Role Status Dates Dr. Amado James MD Family Provider Active Dr. Amado James MD Primary Care Provider Active Team Status: Inactive Member Role Status Dates Dr. Amado James MD Primary Care Provider, Referr ing Provider Active Carmela Funk ENGRAVER COPPERPLATE, ENGRAVER COPPERPLATE-C Attending Provider Active Team Status: Inactive Member Role Status Dates Dr. Amado James MD Primary Care Provider Active Carmela Funk ENGRAVER COPPERPLATE, ENGRAVER COPPERPLATE-C Attending Provider, Referring P andrew Active Diorama Model Maker Relationship Specialty Start Date End Date Amado James MD [address] [place] [address] PCP - General 04/25/09 Diorama Model Maker Relationship Specialty Start Date End Date Amado James MD [address] [place] [address] PCP - General 04/25/09 Diorama Model Maker Relationship Specialty Start Date End Date Amado James MD [address] [place] [address] PCP - General 04/25/09 Diorama Model Maker Relationship Specialty Start Date End Date Amado James MD [address] [place] [address] PCP - General 04/25/09 Diorama Model Maker Relationship Specialty Start Date End Date Amado aJmes MD [address] [place] [address] PCP - General 04/25/09 Diorama Model Maker Relationship Specialty Start Date End Date Amado James MD [address] [place] [address] PCP - General 04/25/09 Diorama Model Maker Relationship Specialty Start Date End Date Amado James MD [address] [place] [address] PCP - General 04/25/09 Diorama Model Maker Relationship Specialty Start Date End Date Amado James MD [address] [place] [address] PCP - General 04/25/09 Diorama Model Maker Relationship Specialty Start Date End Date Amado James MD [address] [place] [address] PCP - General 04/25/09 Diorama Model Maker Relationship Specialty Start Date End Date Amado James MD [address] [place] [address] PCP - General 04/25/09 Diorama Model Maker Relationship Specialty Start Date End Date Amado James MD [address] [place] [address] PCP - General 04/25/09 Diorama Model Maker Relationship Specialty Start Date End Date Amado James MD [address] [place] [address] PCP - General 04/25/09 Diorama Model Maker Relationship Specialty Start Date End Date Amado James MD [address] [place] [address] PCP - General 04/25/09 Diorama Model Maker Relationship Specialty Start Date End Date Amado James MD [address] [place] [address] PCP - General 04/25/09 Diorama Model Maker Relationship Specialty Start Date End Date Amado James MD [address] [place] [address] PCP - General 04/25/09 Diorama Model Maker Relationship Specialty Start Date End Date Amado James MD [address] [place] [address] PCP - General 04/25/09 Rufina Soares, PLANT PROTECTION OFFICER.SIGNAL INTELLIGENCE ANALYST [address] [place] [address] Regional Owner Operator Truck Driver Family [facility] 09/03/24 Diorama Model Maker Relationship Specialty Start Date End Date Amado James MD [address] [place] [address] PCP - General 04/25/09 Rufina Soares APRN.SIGNAL INTELLIGENCE ANALYST [address] [place] [address] Regional Owner Operator Truck Driver Family [facility] 09/03/24 Diorama Model Maker Relationship Specialty Start Date End Date Amado James MD [address] [place] [address] PCP - General 04/25/09 Rufina Soares APRN.SIGNAL INTELLIGENCE ANALYST [address] [place] [address] Regional Owner Operator Truck Driver Family [facility] 09/03/24 Maciel Busby APRN.SIGNAL INTELLIGENCE ANALYST [address] [place] [address] Regional Owner Operator Truck Driver [facility] 09/12/24 Diorama Model Maker Relationship Specialty Start Date End Date Amado James MD [address] [place] [address] PCP - General 04/25/09 Rufina Soares APRN.SIGNAL INTELLIGENCE ANALYST [address] [place] [address] Regional Owner Operator Truck Driver Family [facility] 09/03/24 Maciel Busby APRN.SIGNAL INTELLIGENCE ANALYST [address] [place] [address] Regional Owner Operator Truck Driver [facility] 09/12/24 Diorama Model Maker Relationship Specialty Start Date End Date Amado James MD [address] [place] [address] PCP - General 04/25/09 Rufina Soares PLANT PROTECTION OFFICER.SIGNAL INTELLIGENCE ANALYST [address] [place] [address] Regional Owner Operator Truck Driver Family [facility] 09/03/24 Maciel Busby PLANT PROTECTION OFFICER.SIGNAL INTELLIGENCE ANALYST [address] [place] [address] [facility] Diorama Model Maker Relationship Specialty Start Date End Date Amado James MD [address] [place] [address] PCP - General 04/25/09 Rufina Soares, PLANT PROTECTION OFFICER.SIGNAL INTELLIGENCE ANALYST [address] [place] [address] Regional Owner Operator [facility] 09/03/24 Maciel Busby PLANT PROTECTION OFFICER.SIGNAL INTELLIGENCE ANALYST [address] [place] [address] Regional Owner [facility] 09/12/24 Diorama Model Maker Relationship Specialty Start Date End Date Amado James MD [address] [place] [address] PCP - General 04/25/09 Rufina Soares PLANT PROTECTION OFFICER.SIGNAL INTELLIGENCE ANALYST [address] [place] [address] Regional Owner Operator Truck Driver Family [facility] 09/03/24 Maciel Busby, PLANT PROTECTION OFFICER.SIGNAL INTELLIGENCE ANALYST [address] [facility], [place] [address] [facility] 09/12/24 Diorama Model Maker Relationship Specialty Start Date End Date Amado James MD [address] [facility], [place] [address] PCP - General 04/25/09 Rufina Soares, PLANT PROTECTION OFFICER.SIGNAL INTELLIGENCE ANALYST [address] [facility], [place] [address] [facility] 09/03/24 Maciel Busby, PLANT PROTECTION OFFICER.SIGNAL INTELLIGENCE ANALYST [address] [facility], [place] [address] [facility] 09/12/24 Team Status: Active Member Role [...] Start: February 09, 2025 Dr. Vinayak De oLs Santos MD Other Provider Active Start: February [...] Start : February 10, 2025 Dr. Oscar eWinstein MD Other Provider Active Sta rt: February [...] Active Start: February 11, 2025 Dr. Yaw Thmopson MD Other Provider Active Star t: February [...] Active Sta rt: February 11, 2025 Dr. Ernseto Tate MD Other Provider Active Star t: [...] t: February 12, 2025 Dr. Jose Pool DO Other Provider Active Start : February 12, [...] art: February 12, 2025 Dr. Mike Martinez , Other Provider Active Start: February 12, 2025 Dr. Jeromy Cleary MD Other Provider Active Star t: February 12, 2025 Dr. Anthony Dillard MD Other Provider Active Sta rt: February 12, 2025 Dr. Herbert Cardona MD Other Provider Active Start: February 12, 2025 Dr. Harry Stallings MD Attending Provider Active S tart: February 12, 2025 Diorama Model Maker Relationship Specialty Start Date End Date Amado James MD [address] [place] [address] PCP - General 04/25/09 Rufina Soares, PLANT PROTECTION OFFICER.SIGNAL INTELLIGENCE ANALYST [address] [place] [address] Regional Owner Operator Truck Driver Family Medicine 09/03/24 02/07/25 Maciel Busby, PLANT PROTECTION OFFICER.SIGNAL INTELLIGENCE ANALYST [address] [place] [address] Regional Owner Operator Truck Driver Family Medicine 09/12/24 Reason for Visit (unrecogniz ed section and content) Reason Onset Date Comments Population Health Navigation Outreach 03/16/2022 [place] [facility] Reason Comments F/U 6 Month Reason Comments F/U 3 Month Reason Onset Date Comments Refill Request 07/14/2022 Reason Onset Date Comments Refill Request 07/15/2022 Reason Comments Medication Problem Reason Onset Date Comments Refill Request 12/14/2022 Reason Onset Date Comments Allied Health Visit 12/23/2022 Medication A dherence Outreach Reason Onset Date Comments Population Health Navigation Outreach 01/25/2023 [place] Care [facility] Reason Comments Refill Request Reason Comments Results Reason Onset Date Comments Allied Health Visit 11/26/2023 Medication A dherence Outreach Reason Onset Date Comments Refill Request 12/02/2023 Reason Onset Date Comments Refill Request 01/13/2024 Reason Onset Date Comments [facility] Health Navigation Outreach 01/18/2024 Nadeen BREEZY Roster workbench - AWV, Care gaps, HCC gap closure - [facility] Reason Onset Date Comments Refill Request 01/20/2024 Reason Onset Date Comments Refill Request 02/22/2024 Reason Onset Date Comments [facility] Health Navigation Outreach 02/28/2024 Nadeen [facility] BREEZ[facility] 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 - AWV, Care gaps, HCC gap closure - [facility] Reason Comments Appointment Reason Comments Physical Reason Onset Date Comments [facility] Health Navigation Outreach 05/03/2024 [place] Workbench - [facility] Reason Comments Wound [...] Comments Patient Update Blood Sugars Reason Comments Care Home Continued Plan of Care Reason Comments Follow Up 1 week DM Reason Comments Patient Update Reason Onset Date Comments [facility] Health Navigation Outreach 10/06/2024 [place] Workbench - [facility] Reason Comments Clinical Update re-cert for hh Reason Onset Date Comments Refill Request 11/08/2024 Reason Comments POC update Reason Comments Follow Up 2 month follow up Reason Comments Other Sent from [facility] for low HGB[facility]. Pt is trach/vent dependant, A&Ox2-3 per EMS. RT called to the bedside. Pt does daily hemodialysis through R chest wall cath Specialty Diagnoses / Procedures Referred By Contac t Referred To Contact Diagnoses Anemia Anemia, unspecified type Chronic renal failure, unspecified CKD stage Procedures ... Sharyn Amaya MD [address] [id number] Phone: tel: fax: [facility] Intensive Care Unit ICU [address] [place] [address] Phone: tel: Referral ID Status Reason Start Date Expiration Date Visits Re quested Visits Authorized [id number] 1 1 Reason Comments Vascular Access Problem Pt arrives to ED via [facility] from [facility] for a clogged dialysis catheter. Reason Comments Other Patient presents thr ough triage from [facility], staff states that patient needs new dialysis line and needs to have dialysis, last had half a treatment on Wednesday Reason Comments Other Pt here from [facility] to have dialysis catheter replaced. Procedure completed, here for dialysis before transported back. Pt is trach/vent dependent and oriented via mouthing words and nodding head. PEG tube in place Specialty Diagnoses / Procedures Referred By Thuan jama Referred To Contact Diagnoses ESRD (end stage renal disease) on dialysis (HCC) Procedures .. Griffin Peters MD [address] [place] [address] Phone: tel: fax: [facility] Surgical Trauma Neuro Intensive Care Unit [facility] ICU T[address] [place] [id number] Phone: tel: Referral ID Status Reason Start Date Expiration Date Visits Re quested Visits Authorized [id number] 1 1 INFORMATION SOURCE (unrecogn ized section and content) DATE CREATED AUTHOR 12/19/2024 [facility] DATE CREATED AUTHOR AUTHOR'S ORGANIZ ATION 05/10/2025 [facility] DATE CREATED AUTHOR AUTHOR'S ORGANIZ ATION 07/07/2025 [facility] DATE CREATED AUTHOR AUTHOR'S ORGANIZ ATION 08/06/2025 [facility] Scheduled Active and Recently Administ ered Medications (unrecognized section and content) Medication Order 06/19/2025 06/20/2025 06/21/2025 atorvastatin (Lipitor) tablet 40 mg 40 mg, Per G Tube, Daily, First dose (after last modification) on 06/02/25 at 0900 1404 (Given - Provider: Marion Swartz RN) 0903 (Given - Provider: Mairon Swartz RN) 0828 (Given - Provider: Marion Swartz RN) busPIRone (Buspar) tablet 5 mg 5 mg, Per G Tube, 3 times daily, First dose (after last modification) on [facility] 06/02/25 at 0900 0951 (Given - Provider: [...] meals, First dose (after last modification) on [place] 06/03/25 at 0800 0951 (Given - Provider: [...] RN)1711 (New Bag - Provider: Cha Luna, RN)1758 (Stopped - Provider: Marion Swartz RN) [...] (after last modification) on 06/02/25 at 0900 0950 (Given - Provider: Marion Swartz RN) 09 (Given - Provider: Marion Swartz RN) 0828 (Given - Provider: Marion Swartz RN) furosemide (Lasix) tablet 20 mg 20 mg, Per G Tube, Daily, First dose (after last modification) on 06/02/25 at 0900 1711 (Given - Provider: Cha Luna RN) 09 (Given - Provider: Marion Swartz RN) 0828 (Given - Provider: Marion Swartz RN) heparin injection 5,000 Units 5,000 Units, SubCUTAneous, Every 12 hours scheduled (2 times per day), First dose on Wed06/01/25 at 2100 0950 (Given - Provider: Marion Swartz RN)2012 (Given - Provider: José De Jesus RN) 09 (Given - Provider: Marion Swartz RN)2121 (Given - Provider: Bladimir Mazariegos, RYNE) 0829 (Given - Provider: Marion Swartz RN) insulin glargine (Lantus) injection 25 Units 25 Units, SubCUTAneous, 2 times daily, First dose on Wed06/01/25 at 2100 0823 (Given - Provider: Marion Swartz RN)2012 (Given - Provider: José De Jesus RN) 09 (Given - Provider: Marion Swratz RN)2120 (Given - Provider: Bladimir Mazariegos RN) [...] not met)2348 (Not Given - Provider: Bladimir Mazraiegos RN - Reason: Order parameters not met) [...] Richey RCP)2012 (Given - Provider: Cha Ramon, STITCHER SET UP OPERATOR AUTOMATIC) ipratropium-albuterol (Duo-Neb) 0.5-2.5 mg/3 mL nebulizer solution [...] Swartz RN)1509 (Given - Provider: Marion Swartz RN)212 (Given - Provider: Bladimir Mazariegos, RN) 0828 [...] RN)2121 (Given - Provider: Bladimir Mazariegos, RN) 827 [...] Swartz RN)2013 (Given - Provider: José De eJsus RN) 902 (Given - Provider: Marion Swartz RN)2135 (Given - Provider: Bladimir Mazariegos, RN) 827 (Given - Provider: Marion Swartz RN) sodium chloride 3 % hypertonic nebulizer solution 4 mL 4 mL, Nebulization, 2 times daily, First dose (after last modification) on Wed06/13/25 at 2100 0726 (Given - Provider: Paula Richey RCP)2013 (Given - Provider: Cha Ramon, STITCHER SET UP OPERATOR AUTOMATIC) 08 (Given - Provider: Chuyita Gallegos RCP)2014 (Given - Provider: Maycol Lucas RCP) 0831 (Given - Provider: Chuyita Gallegos RCP) stomahesive in petrolatum (ET Mix) Topical, Every 8 hours scheduled (3 times per day), First dose on 06/04/25 at 2200, Apply to sacrum and right med thigh 0623 (Given - Provider: José De Jesus RN)1404 (Given - Provider: Marion Swartz RN)2235 (Given - Provider: José De Jesus RN) 0532 (Given - Provider: José De Jesus RN)1632 (Not Given - Provider: Marion Swartz RN - Reason: Other - Comment: already given)2123 (Given - Provider: Bladimir Mazariegos, RYNE) 0623 (Given - Provider: Bladimir Mazariegos, RN)1421 (Not Given - Provider: Marion Swartz [...] 8 hours PRN, anxiety, Agitation, Starting on [place] 06/14/25 at 1713 melatonin tablet 3 mg 3 mg, Per G Tube, Nightly PRN, sleep, Starting on [place] 06/14/25 at 1346 polyethylene glycol (PEG) 3350 (Miralax) [...] Bladimir Mazariegos, RN)2122 (Given - Provider: Bladimir Mazariegos, RN) 1420 (Given - Provider: Marion Swartz RN)142 (Not [...] 1254 (Given - Provid er: Pro Weinberg, STITCHER SET UP OPERATOR AUTOMATIC) atorvastatin (Lipitor) tablet 40 mg 40 mg, [...] Kent RN)1539 (Given - Provider: Michael Todd, RYNE)2008 (Given - Provider: Vijaya Villar RN) 0807 (Given - Provider: Darrell Egan RN)1328 (Given - Provider: Darrell Egan, RYNE) carvedilol (Coreg) tablet 3.125 mg 3.125 mg, Per G Tube, 2 times daily with meals, First dose on Wed07/04/25 at 1850 2313 (Not Given - Provider: Cortez Kumar RN - Reason: Contraindicated) 0909 (Given - Provider: Neena Kent, RYNE)1738 (Given - Provider: Michael Todd, RYNE) 0759 [...] 91)2009 (Given - Provider: Vijaya Villar RN) 0803 (Given - Provider: Darrell Egan, RYNE) [...] Kent RN)1539 (Given - Provider: Michael Todd RN)2009 (Given [...] RYNE)2009 (Given - Provider: Vijaya Villar RN) 0807 [...] Midline or Central Line = 20 mL/lumen 2133 (Given - Provider: Nilda Moy RN) 904 (Not Given - Provider: Neena Kent RN - Reason: IV Fluids Infusing)2010 (Given - Provider: Vijaya Villar RN) 806 (Not Given - Provider: Darrell Egan RN [...] lumen 0815 (Given - Provider: Kendra Suarez, RN) 1200 (Given - Provider: Carmita Prasad, RN) heparin injection 2,000 Units (CANCELED) 2,000 Units, IntraCATHeter, As needed, line care, Starting on Wed07/05/25 at 0328, For VENOUS lumen 0815 (Given - Provider: Kendra Suarez, RYNE) heparin injection 2,100 Units 2,100 Units, IntraCATHeter, As needed, line care, Starting on Wed07/06/25 at 0936, For VENOUS lumen 1200 (Given - Provid er: Carmita Prasad, RN) ondansetron (Zofran) injection 4 mg(Linked Group 3) 4 mg, IntraVENous, Every 6 hours PRN, nausea, vomiting, Starting on Wed07/04/25 at 2057, 1st Line. Give IV if patient is unable to take orally. If inadequate response within 60 minutes, proceed to next-line agent or contact provider if no further options ordered. ondansetron ODT (Zofran-ODT) disintegrating tablet 4 mg(Linked Group 3) 4 mg, Oral, Every 8 hours PRN, nausea, vomiting, Starting on Wed07/04/25 at 2057, 1st Line. If inadequate response within 60 [...] BE BASED ON THE PRIMARY CLINICAL RECORDS. [facility] [employer] [facility]. provides no warranty or guarantee of the accuracy or completeness of information in this document.
[2025-08-07 09:19] LABS: Hematocrit 20.7 % (37-47); Hemoglobin 6.5 g/dL (12.0-15.0); Immature Granulocytes Count 0.050 X10^3/uL (0.0-0.0); Mean Corp Hgb Conc 31.4 g/dL (32-36); Mean Corpuscular Volume 88.5 fL (81-99); Mean Platelet Vol. 10.2 fl (6.2-12.0); NRBC Flagged by Analyzer 0 % (0-5); Platelet Count 222 K/mm3 (150-450); RBC Distribution Width CV 18.1 % (11.6-14.6); RBC Distribution Width SD 56.3 fl (35.1-43.9); Red Blood Count 2.34 M/mm3 (4.2-5.4); White Blood Count 8.5 K/mm3 (4.4-11.0)
[2025-08-07 09:32] LABS: CRP 54.40 mg/L (0.0-3.0)
[2025-08-08 04:07] LABS: PROLACTIN 19.5 ng/mL (3.6-25.2)
== END ==
LOC: OLS.SANC 04:00
PROVIDERS: PCP Family Medicine
DX: E11.9 Type 2 diabetes mellitus without complications (principal); J96.01 Acute respiratory failure with hypoxia
CPT/HCPCS: 36415; 84146; 85025; 86140